=== PATIENT | male | born 1965 | race Caucasian/White ===

== ENCOUNTER 2018-04-02 11:19 | Observation (INO) | payer MEDICARE, SELFPAY ==
[2018-04-02] VITALS (11 sets, daily range): BP systolic 130–153; BP diastolic 78–85; PULSE 74–88; RESP 11–18; TEMP 36.4–36.8; O2SAT 94–100; BMI 36.4; BMI 35.2
--- NOTE | 2018-04-02 11:35 | RAD_ITS ---
STUDY: X-RAY CHEST REASON FOR EXAM: Male, 52 years old. Chest pain. TECHNIQUE: Single AP portable view of the chest. COMPARISON: 08/10/2016. FINDINGS: The lungs are clear and expanded. There is no demonstrated pleural abnormality. Normal size heart. Normal mediastinum and ortiz. Normal visualized pulmonary arteries. Normal visualized aortic arch and descending thoracic aorta. There are degenerative changes of the visualized thoracic spine. Normal visualized ribs, clavicles, and shoulders. There is no demonstrated abnormality of the visualized soft tissue structures of the upper abdomen. RAD/Chest 1 View (Portable) IMPRESSION: No active pulmonary disease. Electronically Signed: Grant Herrera MD at 12:35 EDT Tel , Service support ,
--- NOTE | 2018-04-02 11:35 | EKG12_ITS ---
Test Reason : CP Blood Pressure : / mmHG Vent. Rate : 086 BPM Atrial Rate : 086 BPM P-R Int : 178 ms QRS Dur : 094 ms QT Int : 396 ms P-R-T Axes : 030 002 059 degrees QTc Int : 473 ms Sinus rhythm with frequent Premature ventricular complexes Otherwise normal ECG Confirmed by ARIEL BROWNING, ARMANDO ([id number]), photo editor ABDIRASHID GARCIA ([id number]) on 04/04/2018 3:17:26 PM Referred By: SHERRON Confirmed By:ARMANDO GEORGE MD
--- NOTE | 2018-04-02 11:37 | ED.DCSUM_ITS ---
- ER Visit Summary Date of Service: 04/02/18 Chief Complaint: Chest pain History of Present Illness: The patient is a 52 M with chest pain that started about half an hour prior to my evaluation. It is retrosternal. Associated with lightheadedness, headache, and bilateral jaw and ear pain. Patient said he never had this before. 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 He is a former smoker. Denies any fevers, shortness of breath, or sputum. Physical Examination: Afebrile and vital signs unremarkable. Patient appears in no acute distress. Skin appears normal. Heart regular rate and rhythm. Lungs clear. Abdomen soft and nontender. Skin, calves, pulses unremarkable. Test Results: EKG showed sinus rhythm at a rate of 86 with PVCs. No sign of acute ischemia or infarction pattern. Laboratory studies and chest x-ray are pending. Emergency Department Course and Treatment: Patient was placed on a monitor and treated with aspirin. He had a stress test about 8 years ago. He has no history of coronary disease, stents, or [place]. No history of PE, DVT, or aortic disease. No infectious symptoms currently. Workup was all fairly unremarkable. White count is 14, BUN 34 and creatinine 2.14. This is all chronic for him. Troponin normal. Chest x-ray showed no acute disease. Patient was feeling better after aspirin. JAYLEEN score 1 and heart score 4. Hospitalist was contacted for admission. Treatment Plan: As above Disposition: Admission Impression: 1. Chest pain This note was generated with [employer] dictation software. It may contain incorrect words, spelling, and punctuation that were not noted in review of the chart prior to signing ED Disposition - Plan for ED Patient: Chief Complaint: Chest Pain Referrals: Elgin Bal MD [Primary Care Provider] -
[2018-04-02 11:52] LABS: Absolute Lymphocyte Count 1.06 X10^3/ul (0.83-4.51); Absolute Neutrophil Count 11.9 X10^3/uL (2.0-7.7); Basophil# 0.03 X10^3/uL; Basophil% 0.2 % (0-1); Eosinophil# 0.12 X10^3/uL; Eosinophils% 0.9 % (0-5); Hematocrit 39.5 % (40-54); Hemoglobin 13.7 g/dl (13.0-16.5); Lymphocyte # 1.06 X10^3/ul (4.0); Lymphocyte % 7.6 % (19-41); Mean Corp Hgb Conc 34.7 g/gl (32-36); Mean Corpuscular Hgb 30.9 pg (27.0-32.0); Mean Corpuscular Volume 89.2 fL (80-94); Mean Platelet Vol. 9.2 fl (6.2-12.0); Monocyte# 0.83 X10^3/uL; Monocyte% 5.9 % (0-10); Neutrophil # 11.91 X10^3/uL (2.7-7.7); Neutrophil % 85.1 % (47-70); POSITIVE COUNT NO; POSITIVE DIFFERENTIAL NO; POSITIVE MORPHOLOGY NO; Platelet Count 267 K/mm3 (150-450); RBC Distribution Width CV 12.7 % (11.6-14.6); RBC Distribution Width SD 40.9 fl (35.1-43.9); Red Blood Count 4.43 M/mm3 (4.6-6.2)
[2018-04-02] MEDS: Aspirin 81 MG TAB.CHEW 324 MG PO (12:00)
[2018-04-02 12:09] LABS: Anion Gap 6 (5-15); BUN 34 mg/dL (7-18); BUN/Creat Ratio 15.9 RATIO (10-20); Calcium,Total 8.9 mg/dL (8.5-10.1); Chloride 111 mmol/L (98-107); Creatinine, Serum 2.14 mg/dL (0.70-1.30); EST Glomerular Filtration Rate 34 mL/min (>60); Est Glom Filt Rate - Afr Amer 42 mL/min (>60); Estimated Creatinine Clearance 40.75 ml/min; Glucose 126 mg/dL (74-106); Sodium Level 140 mmol/L (136-145)
--- NOTE | 2018-04-02 13:18 | NURSING ---
DR JAMES SIU
--- NOTE | 2018-04-02 13:19 | NURSING ---
AMANDAU RJ BAKER
--- NOTE | 2018-04-02 13:32 | PCM.HP.STD ---
Problem List (1) Chest pain Status: Acute Qualifiers: Chest pain type: precordial pain Qualified Code(s): R07.2 - Precordial pain History of Present Illness Date of Admission: 04/02/18 Chief Complaint: chest pain The patient is a 52 year old M was seen in the emergency room at [facility] with chief complaint of precordial chest pain which began about a half an hour prior to coming to the emergency room this morning. Patient was in buddhist when his chest pain started, he stated it felt like an ache, it was centered in his mid chest area, radiated into his jaw area and the back of his neck and was accompanied by headache. Patient had no nausea, shortness of breath, or diaphoresis. The chest discomfort lasted until the patient came to the emergency room and was given aspirin which he states made it go away, chest pain and all lasted approximately 40 minutes to an hour. Workup in the emergency room included an EKG which showed a normal sinus rhythm with frequent PVCs, chest x-ray was unremarkable, labs were remarkable for a creatinine of 2.14, BUN was 34, glucose is 126, and white blood cell count was 14. Patient will be placed on observation status on PCU for chest pain, enzymes will be cycled, if enzymes remain negative he will undergo a exercise stress test tomorrow Past Medical History Past Medical History (Chronic Problems): Chronic Problems Schizoaffective disorder (Chronic) Rheumatoid arthritis (Chronic) Bipolar 1 disorder (Chronic) Gastroesophageal reflux disease (Chronic) Allergies lamotrigine [From Lamictal] Allergy (Verified 04/02/18 11:19) Rash Home Medications: Ambulatory Orders Medication Instructions Recorded buPROPion XL [Wellbutrin Xl] 450 mg PO QHS 05/18/15 Albuterol Inhaler [Ventolin Hfa 1 - 2 puff INHALATION Q4H PRN PRN 04/02/16 (SP)] Quetiapine Fumarate [Seroquel Xr] 400 mg PO QHS 04/09/16 Omeprazole [Prilosec] 40 mg PO DAILY 08/10/16 Amlodipine [Norvasc] 10 mg PO DAILY 04/02/18 Atorvastatin Calcium [Lipitor] 20 mg PO QHS 04/02/18 [place] Carbonate [[place] 600 mg PO BID 04/02/18 Carbonate ER] Surgical History: - - T+A, L inguinal hernia repair, R foot surgery, L shoulder surgery, Back surgery, jaw surgery, Psychiatric History: Bipolar Lives: Spouse/ Significant Other Smoking Status: Former smoker Tobacco Use: Non-smoker Alcohol: None Drugs: None - *Family History Maternal History Items: Heart Disease Paternal History Items: No pertinent history - suicide Review of Systems Constitutional: Denies: Anorexia, Chills, Fever, Night Sweats, Malaise, Weakness, Weight Change, Fatigue Eyes: Denies: Blurred vision, Cataracts, Conjunctivae Inflammation HEENT: Reports: Head Aches. Denies: Difficulty Swallowing, Dysphasia, Ear Pain, Eye Pain, Hearing Changes, Nasal bleeding, Nasal Congestion, Post Nasal Drip Cardiovascular: Reports: Chest Pain. Denies: Claudication, Chest Pressure, Chest Tightness, Edema, Heaviness, Light Headedness, Palpitations Respiratory: Denies: Cough, Hemoptysis, Pleuritic Pain, Shortness of Breath, Shortness of breath at rest, Shortness of breath upon exertion Gastrointestinal: Denies: Abdominal Pain, Constipation, Diarrhea, Hematemesis, Hematochezia, Nausea, Melena, Vomiting Genitourinary: Denies: Dysuria, Frequency, Hematuria, Hesitancy, Incontinence, Nocturia, Urgency Musculoskeletal: Reports: Neck Pain. Denies: Arm Pain, Back Pain, Foot Pain, Joint Pain, Joint stiffness, Joint swelling, Joint Tenderness Skin: Denies: Dryness, Pruritis, Rash Neurological: Denies: Balance problems, Blurred vision, Double vision, Slurred speech, Difficulty swallowing, Focal weakness, Headaches, Incoordination, Numbness, Tingling Psychiatric: Denies: Anxiety, Depression, Homicidal Ideations, Suicidal Ideations Endocrine: Denies: Change in Body Habitus, Heat/ Cold Intolerance, Polydipsia, Polyuria Hematologic/ Lymphatic: Denies: Adenopathy, Anemia, Easy Bruising, Easy Bleeding, Petechiae, Purpura VTE Information - Inpt Only VTE Present on Admission: No VTE Mechan Device Prophylaxis: None VTE Pharm Prophylaxis ordered?: Yes Patient Problems: Active and Suspected Problems Chest pain (Acute) - Physical Exam General: Alert, Oriented x3, Cooperative, No apparent distress, Well developed, Well nourished HEENT: Atraumatic, PERRLA, EOMI, Normocephalic Oral: Moist Mucosa Neck: Supple, No JVD, Negative Carotid Bruits, No Nuchal Rigidity, Trachea Midline, Thyroid Normal Size and Texture Lungs: Clear to auscultation, Normal air movement, No rhonchi, No wheeze, No rales Cardiovascular: Regular rate, Regular Rhythm, Normal S1, Normal S2, No murmurs, PMI Normal, No rub noted, No Gallop Abdomen: Bowel Sounds Present, Soft, Non Tender, Non-Distended, Obese Extremities: No clubbing, No cyanosis, No edema, Capillary Refill Less than 3 Seconds Skin: No rashes, No breakdown Musculoskeletal: No Tenderness to Palpation of Joints or Extremities, No Muscle Wasting Neurological: Cranial nerves II-XII grossly intact, Neuro grossly intact, Muscle tone normal, Sensory exam intact to light touch and pain, Coordination normal Psych/Mental Status: Normal Affect, Appropriate, Alert and oriented to time, place, person, mood and affect Vital Signs Temp Pulse Resp BP Pulse Ox 97.6 F L 80 17 153/81 H 94 04/02/18 11:20 04/02/18 12:19 04/02/18 12:19 04/02/18 12:19 04/02/18 12:19 Oxygen Delivery Method Room Air Weight: 115.212 kg Body Mass Index (BMI) 36.4 Laboratory Tests Past 24 Hrs 04/02/18 04/02/18 11:25 11:25 WBC 14.0 H RBC 4.43 L Hgb 13.7 Hct 39.5 L MCV 89.2 MCH 30.9 MCHC 34.7 RDW 12.7 RDW Differential 40.9 Plt Count 267 MPV 9.2 Immature Gran % (Auto) 0.300 Neut % (Auto) 85.1 H Lymph % (Auto) 7.6 L [place] % (Auto) 5.9 Eos % (Auto) 0.9 Baso % (Auto) 0.2 Absolute Neuts (auto) 11.9 H Absolute Lymphs (auto) 1.06 Total Counted Not Reportable Sodium 140 Potassium 4.0 Chloride 111 H Carbon Dioxide 23.0 Anion Gap 6 BUN 34 H Creatinine 2.14 H Estim Creat Clear Calc 40.75 Est GFR (MDRD) Af Amer 42 L Est GFR (MDRD) Non-Af 34 L BUN/Creatinine Ratio 15.9 Glucose 126 H Calcium 8.9 Troponin I < 0.015 Assessment/Plan Active and Suspected Problems Chest pain (Acute) #1 precordial chest pain-etiology unclear, patient will be placed in observation status on PCU, enzymes will be cycled, he will be monitored on telemetry, if enzymes remain negative he will have a exercise nuclear stress test tomorrow. Patient was given aspirin in the emergency room #2 hypertension-patient will remain on his present medication #3 bipolar disorder-patient will remain on his present medication #4 hyperlipidemia-patient will remain on his present medication #5 PVCs-these appear unifocal on his EKG #6 elevated creatinine-etiology unclear, creatinine has been elevated on previous labs from 2 years ago. #7 leukocytosis-probably secondary to lithium Code Visit OBSV E&M: 09336 Initial observation care L3
--- NOTE | 2018-04-02 13:43 | HP.PCM_ITS ---
Problem List (1) Chest pain Status: Acute Qualifiers: Chest pain type: precordial pain Qualified Code(s): R07.2 - Precordial pain History of Present Illness Date of Admission: 04/02/18 Chief Complaint: chest pain The patient is a 52 year old M was seen in the emergency room at [facility] with chief complaint of precordial chest pain which began about a half an hour prior to coming to the emergency room this morning. Patient was in islam when his chest pain started, he stated it felt like an ache, it was centered in his mid chest area, radiated into his jaw area and the back of his neck and was accompanied by headache. Patient had no nausea, shortness of breath, or diaphoresis. The chest discomfort lasted until the patient came to the emergency room and was given aspirin which he states made it go away, chest pain and all lasted approximately 40 minutes to an hour. Workup in the emergency room included an EKG which showed a normal sinus rhythm with frequent PVCs, chest x-ray was unremarkable, labs were remarkable for a creatinine of 2.14, BUN was 34, glucose is 126, and white blood cell count was 14. Patient will be placed on observation status on PCU for chest pain, enzymes will be cycled, if enzymes remain negative he will undergo a exercise stress test tomorrow Past Medical History Past Medical History (Chronic Problems): Chronic Problems Schizoaffective disorder (Chronic) Rheumatoid arthritis (Chronic) Bipolar 1 disorder (Chronic) Gastroesophageal reflux disease (Chronic) Allergies lamotrigine [From Lamictal] Allergy (Verified 04/02/18 11:19) Rash Home Medications: Ambulatory Orders Medication Instructions Recorded buPROPion XL [Wellbutrin Xl] 450 mg PO QHS 05/18/15 Albuterol Inhaler [Ventolin Hfa 1 - 2 puff INHALATION Q4H PRN PRN 04/02/16 (SP)] Quetiapine Fumarate [Seroquel Xr] 400 mg PO QHS 04/09/16 Omeprazole [Prilosec] 40 mg PO DAILY 08/10/16 Amlodipine [Norvasc] 10 mg PO DAILY 04/02/18 Atorvastatin Calcium [Lipitor] 20 mg PO QHS 04/02/18 [place] Carbonate [[place] 600 mg PO BID 04/02/18 Carbonate ER] Surgical History: - - T+A, L inguinal hernia repair, R foot surgery, L shoulder surgery, Back surgery, jaw surgery, Psychiatric History: Bipolar Lives: Spouse/ Significant Other Smoking Status: Former smoker Tobacco Use: Non-smoker Alcohol: None Drugs: None - *Family History Maternal History Items: Heart Disease Paternal History Items: No pertinent history - suicide Review of Systems Constitutional: Denies: Anorexia, Chills, Fever, Night Sweats, Malaise, Weakness , Weight Change, Fatigue Eyes: Denies: Blurred vision, Cataracts, Conjunctivae Inflammation HEENT: Reports: Head Aches. Denies: Difficulty Swallowing, Dysphasia, Ear Pain , Eye Pain, Hearing Changes, Nasal bleeding, Nasal Congestion, Post Nasal Drip Cardiovascular: Reports: Chest Pain. Denies: Claudication, Chest Pressure, Chest Tightness, Edema, Heaviness, Light Headedness, Palpitations Respiratory: Denies: Cough, Hemoptysis, Pleuritic Pain, Shortness of Breath, Shortness of breath at rest, Shortness of breath upon exertion Gastrointestinal: Denies: Abdominal Pain, Constipation, Diarrhea, Hematemesis, Hematochezia, Nausea, Melena, Vomiting Genitourinary: Denies: Dysuria, Frequency, Hematuria, Hesitancy, Incontinence, Nocturia, Urgency Musculoskeletal: Reports: Neck Pain. Denies: Arm Pain, Back Pain, Foot Pain, Joint Pain, Joint stiffness, Joint swelling, Joint Tenderness Skin: Denies: Dryness, Pruritis, Rash Neurological: Denies: Balance problems, Blurred vision, Double vision, Slurred speech, Difficulty swallowing, Focal weakness, Headaches, Incoordination, Numbness, Tingling Psychiatric: Denies: Anxiety, Depression, Homicidal Ideations, Suicidal Ideations Endocrine: Denies: Change in Body Habitus, Heat/ Cold Intolerance, Polydipsia, Polyuria Hematologic/ Lymphatic: Denies: Adenopathy, Anemia, Easy Bruising, Easy Bleeding , Petechiae, Purpura VTE Information - Inpt Only VTE Present on Admission: No VTE Mechan Device Prophylaxis: None VTE Pharm Prophylaxis ordered?: Yes Patient Problems: Active and Suspected Problems Chest pain (Acute) - Physical Exam General: Alert, Oriented x3, Cooperative, No apparent distress, Well developed, Well nourished HEENT: Atraumatic, PERRLA, EOMI, Normocephalic Oral: Moist Mucosa Neck: Supple, No JVD, Negative Carotid Bruits, No Nuchal Rigidity, Trachea Midline, Thyroid Normal Size and Texture Lungs: Clear to auscultation, Normal air movement, No rhonchi, No wheeze, No rales Cardiovascular: Regular rate, Regular Rhythm, Normal S1, Normal S2, No murmurs, PMI Normal, No rub noted, No Gallop Abdomen: Bowel Sounds Present, Soft, Non Tender, Non-Distended, Obese Extremities: No clubbing, No cyanosis, No edema, Capillary Refill Less than 3 Seconds Skin: No rashes, No breakdown Musculoskeletal: No Tenderness to Palpation of Joints or Extremities, No Muscle Wasting Neurological: Cranial nerves II-XII grossly intact, Neuro grossly intact, Muscle tone normal, Sensory exam intact to light touch and pain, Coordination normal Psych/Mental Status: Normal Affect, Appropriate, Alert and oriented to time, place, person, mood and affect Vital Signs Temp Pulse Resp BP Pulse Ox 97.6 F L 80 17 153/81 H 94 04/02/18 11:20 04/02/18 12:19 04/02/18 12:19 04/02/18 12:19 04/02/18 12:19 Oxygen Delivery Method Room Air Weight: 115.212 kg Body Mass Index (BMI) 36.4 Laboratory Tests Past 24 Hrs 04/02/18 04/02/18 11:25 11:25 WBC 14.0 H RBC 4.43 L Hgb 13.7 Hct 39.5 L MCV 89.2 MCH 30.9 MCHC 34.7 RDW 12.7 RDW Differential 40.9 Plt Count 267 MPV 9.2 Immature Gran % (Auto) 0.300 Neut % (Auto) 85.1 H Lymph % (Auto) 7.6 L [place] % (Auto) 5.9 Eos % (Auto) 0.9 Baso % (Auto) 0.2 Absolute Neuts (auto) 11.9 H Absolute Lymphs (auto) 1.06 Total Counted Not Reportable Sodium 140 Potassium 4.0 Chloride 111 H Carbon Dioxide 23.0 Anion Gap 6 BUN 34 H Creatinine 2.14 H Estim Creat Clear Calc 40.75 Est GFR (MDRD) Af Amer 42 L Est GFR (MDRD) Non-Af 34 L BUN/Creatinine Ratio 15.9 Glucose 126 H Calcium 8.9 Troponin I < 0.015 Assessment/Plan Active and Suspected Problems Chest pain (Acute) #1 precordial chest pain-etiology unclear, patient will be placed in observation status on PCU, enzymes will be cycled, he will be monitored on telemetry, if enzymes remain negative he will have a exercise nuclear stress test tomorrow. Patient was given aspirin in the emergency room #2 hypertension-patient will remain on his present medication #3 bipolar disorder-patient will remain on his present medication #4 hyperlipidemia-patient will remain on his present medication #5 PVCs-these appear unifocal on his EKG #6 elevated creatinine-etiology unclear, creatinine has been elevated on previous labs from 2 years ago. #7 leukocytosis-probably secondary to lithium Code Visit OBSV E&M: 51286 Initial observation care L3
--- NOTE | 2018-04-02 14:22 | EKG12_ITS ---
Test Reason : ADMISSION CP EKG Blood Pressure : / mmHG Vent. Rate : 072 BPM Atrial Rate : 072 BPM P-R Int : 176 ms QRS Dur : 098 ms QT Int : 410 ms P-R-T Axes : 029 003 065 degrees QTc Int : 448 ms Normal sinus rhythm Normal ECG When compared with ECG of 10-AUG-2016 14:47, No significant change was found Confirmed by ARIEL BROWNING, ARMANDO ([id number]), news copy editor ABDIRASHID GARCIA ([id number]) on 04/04/2018 3:21:50 PM Referred By: JAMES Confirmed By:ARMANDO GEORGE MD
[2018-04-02] MEDS: QUEtiapine 100 MG Tablet 200 MG PO (21:58)
[2018-04-02] MEDS: buPROPion (XL) 150 MG TABLET.XL 450 MG PO (21:58)
[2018-04-02] MEDS: LITHIUM CARBONATE 300 MG TABLET.ER 600 MG PO (21:58)
[2018-04-02] MEDS: Atorvastatin Calcium 20 MG Tablet PO (21:58)
[2018-04-02] MEDS: Heparin Injection (Vial) 5,000 UNIT/ML VIAL 5000 UNIT SC (22:03)
[2018-04-03] VITALS (7 sets, daily range): BP systolic 115–153; BP diastolic 57–87; PULSE 66–96; RESP 15–18; TEMP 36.5–37; O2SAT 95–96
[2018-04-03 04:18] LABS: Absolute Lymphocyte Count 1.69 X10^3/ul (0.83-4.51); Absolute Neutrophil Count 11.2 X10^3/uL (2.0-7.7); Basophil# 0.02 X10^3/uL; Basophil% 0.1 % (0-1); Eosinophil# 0.08 X10^3/uL; Eosinophils% 0.6 % (0-5); Hematocrit 37.5 % (40-54); Hemoglobin 12.6 g/dl (13.0-16.5); Lymphocyte # 1.69 X10^3/ul (4.0); Lymphocyte % 12.1 % (19-41); Mean Corp Hgb Conc 33.6 g/gl (32-36); Mean Corpuscular Hgb 29.9 pg (27.0-32.0); Mean Corpuscular Volume 88.9 fL (80-94); Mean Platelet Vol. 8.9 fl (6.2-12.0); Monocyte% 6.5 % (0-10); Neutrophil # 11.21 X10^3/uL (2.7-7.7); Neutrophil % 80.6 % (47-70); Platelet Count 246 K/mm3 (150-450); RBC Distribution Width CV 12.8 % (11.6-14.6); Red Blood Count 4.22 M/mm3 (4.6-6.2); White Blood Count 13.9 K/mm3 (4.4-11.0)
[2018-04-03 04:19] LABS: POSITIVE COUNT NO; POSITIVE DIFFERENTIAL NO; POSITIVE MORPHOLOGY NO
[2018-04-03 04:20] LABS: Prothrombin Time (Protime)PT. 12.9 SECONDS (11.7-14.9)
[2018-04-03 04:33] LABS: Partial Thromboplast Time 28.4 Seconds (24.1-36.2)
[2018-04-03 04:42] LABS: Anion Gap 10 (5-15); BUN 32 mg/dL (7-18); BUN/Creat Ratio 16.8 RATIO (10-20); Calcium,Total 8.7 mg/dL (8.5-10.1); Chloride 111 mmol/L (98-107); EST Glomerular Filtration Rate 39 mL/min (>60); Est Glom Filt Rate - Afr Amer 48 mL/min (>60); Estimated Creatinine Clearance 45.89 ml/min; Glucose 131 mg/dL (74-106); Potassium 3.5 mmol/L (3.5-5.1); Sodium Level 145 mmol/L (136-145)
--- NOTE | 2018-04-03 05:55 | EKG12_ITS ---
Test Reason : AM EKG Blood Pressure : / mmHG Vent. Rate : 083 BPM Atrial Rate : 083 BPM P-R Int : 172 ms QRS Dur : 100 ms QT Int : 386 ms P-R-T Axes : 035 000 068 degrees QTc Int : 453 ms Sinus rhythm with frequent Premature ventricular complexes Nonspecific T wave abnormality Abnormal ECG When compared with ECG of 02-APR-2018 14:29, MANUAL COMPARISON REQUIRED, DATA IS UNCONFIRMED Confirmed by ARIEL BROWNING, ARMANDO ([id number]), newspaper editor ABDIRASHID GARCIA ([id number]) on 04/04/2018 3:19:06 PM Referred By: KELLEY Confirmed By:ARMANDO GEORGE MD
--- NOTE | 2018-04-03 09:43 | STRESSREP ---
Stress Test Report Exercise myocardial perfusion stress test. 52-year-old man with a history of chest pain. Medications Lipitor Wellbutrin and lithium. Resting EKG demonstrates normal sinus rhythm with a rate of 80 bpm normal intervals and noted resting blood pressure is 138/78 mmHg. The patient exercised according to regular Marko protocol for total duration of 6 minutes completing stage II of the Marko protocol the maximum heart rate attained was 144 bpm which was 86% maximum predicted heart rate the maximum workload attained was 7 metabolic equivalents. At rest there were no ST or T-wave changes noted suggest ischemia. Frequent premature ventricular complexes were noted premature atrial complexes were also noted. The resting blood pressure is 154/84 with a peak blood pressure 180/64. No clinical angina was noted. Myocardial perfusion protocol. 14.0 mCi of technetium 99m sestamibi was injected at rest. The patient exercised according to regular Marko protocol for 6 minutes and at peak exercise 45.0 mCi of technetium 99m sestamibi was injected stress images were obtained stress and rest images were reconstructed and compared in the short axis vertical long and horizontal long axis. Gated images were also obtained pre- Perfusion SPECT analysis: Review of the stress images demonstrate normal uptake of tracer noted in all areas of the myocardium. The resting images similarly demonstrate normal uptake of tracer noted in all areas myocardium. There is a small portion of the apex on the stress and resting images which appears to have mildly reduced perfusion the above is likely secondary to apical thinning. No previous infarct is noted. Gated SPECT analysis: The gated ejection fraction is 51%. Conclusion: Normal exercise myocardial perfusion stress test at a moderate workload. Preserved ejection fraction. No clinical angina noted.
--- NOTE | 2018-04-03 10:59 | DCINST_ITS ---
- Discharge Diagnoses Current Active Problems: Current Active and Chronic Problems Chronic kidney disease (Chronic) Chest pain (Acute) You will use the following diet at home:: No restrictions Your food should be the consistency of: Regular Your liquids should be the consistency of: Regular/Thin Discharge Activity: Return to Normal Activity Weight Bearing Status: Full weight bearing Allergies/Adverse Reactions: Allergies lamotrigine [From Lamictal] Allergy (Verified 04/02/18 11:19) Rash Medications to take at Discharge buPROPion XL [Wellbutrin Xl] 450 mg PO QHS 05/18/15 Albuterol Inhaler [Ventolin Hfa] 1 - 2 puff INHALATION Q4H PRN PRN 04/02/16 Quetiapine Fumarate [Seroquel Xr] 400 mg PO QHS 04/09/16 Omeprazole [Prilosec] 40 mg PO DAILY 08/10/16 Amlodipine [Norvasc] 10 mg PO DAILY 04/02/18 Atorvastatin Calcium [Lipitor] 20 mg PO QHS 04/02/18 Cholecalciferol (Vitamin D3) [Vitamin D3] 2,000 unit PO DAILY 04/02/18 [place] Carbonate [[place] Carbonate ER] 600 mg PO BID 04/02/18 Primary Care Physician: Elgin Bal MD [Primary Care Provider] - Please follow up with your Primary Care Physician in: IN 3 WEEKS
--- NOTE | 2018-04-04 19:04 | PCM.DC.SUM ---
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 Patient stated the chest pain was precordial in nature and radiated into the jaw area back of his neck. Workup in the emergency room included an EKG which showed unifocal PVCs but no evidence of ischemia, chest x-ray was unremarkable, patient's labs showed an elevated white blood cell count and elevated creatinine. Patient had a known history of chronic renal disease secondary to Rey's vasculitis. Patient's troponin was unremarkable. Patient was placed into observation status on PCU and cardiac enzymes were cycled-these remained normal, he underwent an exercise nuclear stress test on 04/03/18 was negative for reversible ischemic changes. On 04/03/18, patient was seen and examined felt to be in stable condition for discharge home Discharge Activity: Return to Normal Activity Weight Bearing Status: Full weight bearing Home Medications: Medications to take at Discharge buPROPion XL [Wellbutrin Xl] 450 mg PO QHS 05/18/15 Albuterol Inhaler [Ventolin Hfa] 1 - 2 puff INHALATION Q4H PRN PRN 04/02/16 Quetiapine Fumarate [Seroquel Xr] 400 mg PO QHS 04/09/16 Omeprazole [Prilosec] 40 mg PO DAILY 08/10/16 Amlodipine [Norvasc] 10 mg PO DAILY 04/02/18 Atorvastatin Calcium [Lipitor] 20 mg PO QHS 04/02/18 Cholecalciferol (Vitamin D3) [Vitamin D3] 2,000 unit PO DAILY 04/02/18 [place] Carbonate [[place] Carbonate ER] 600 mg PO BID 04/02/18 Primary Care Physician: Elgin Bal MD [Primary Care Provider] - Please follow up with your Primary Care Physician in: IN 3 WEEKS Disposition: Home Minutes spent on discharge:: 25 Patient Condition:: Stable Medical Necessity - Tobacco Use Smoking Status: Former smoker Tobacco Use: Non-smoker Meaningful Use Info Meaningful Use Diagnoses (Choose all that apply): None applicable Code Visit OBSV E&M: 15185 Observation care discharge
--- NOTE | 2018-04-04 19:09 | DS.PCM_ITS ---
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 Patient stated the chest pain was precordial in nature and radiated into the jaw area back of his neck. Workup in the emergency room included an EKG which showed unifocal PVCs but no evidence of ischemia, chest x-ray was unremarkable, patient's labs showed an elevated white blood cell count and elevated creatinine. Patient had a known history of chronic renal disease secondary to Rey's vasculitis. Patient's troponin was unremarkable. Patient was placed into observation status on PCU and cardiac enzymes were cycled-these remained normal, he underwent an exercise nuclear stress test on 04/03/18 was negative for reversible ischemic changes. On 04/03/18, patient was seen and examined felt to be in stable condition for discharge home Discharge Activity: Return to Normal Activity Weight Bearing Status: Full weight bearing Home Medications: Medications to take at Discharge buPROPion XL [Wellbutrin Xl] 450 mg PO QHS 05/18/15 Albuterol Inhaler [Ventolin Hfa] 1 - 2 puff INHALATION Q4H PRN PRN 04/02/16 Quetiapine Fumarate [Seroquel Xr] 400 mg PO QHS 04/09/16 Omeprazole [Prilosec] 40 mg PO DAILY 08/10/16 Amlodipine [Norvasc] 10 mg PO DAILY 04/02/18 Atorvastatin Calcium [Lipitor] 20 mg PO QHS 04/02/18 Cholecalciferol (Vitamin D3) [Vitamin D3] 2,000 unit PO DAILY 04/02/18 Annetta North Carbonate [Annetta North Carbonate ER] 600 mg PO BID 04/02/18 Primary Care Physician: Elgin Bal MD [Primary Care Provider] - Please follow up with your Primary Care Physician in: IN 3 WEEKS Disposition: Home Minutes spent on discharge:: 25 Patient Condition:: Stable Medical Necessity - Tobacco Use Smoking Status: Former smoker Tobacco Use: Non-smoker Meaningful Use Info Meaningful Use Diagnoses (Choose all that apply): None applicable Code Visit OBSV E&M: 10555 Observation care discharge
== END 2018-04-03 10:59 | disposition home or self-care (01) ==
LOC: ED 12:28 → PCU 13:35
PROVIDERS: Internal Medicine; Admitting Provider Internal Medicine; Emergency Provider Emergency Medicine; Family Provider Family Medicine; PCP Family Medicine; Visit Provider Internal Medicine
DX: R07.89 Other chest pain (principal); E78.5 Hyperlipidemia, unspecified; I12.9 Hypertensive chronic kidney disease with stage 1 through stage 4 chronic kidney disease, or unspecified chronic kidney disease; N18.3 Chronic kidney disease, stage 3 (moderate); D72.829 Elevated white blood cell count, unspecified; I49.3 Ventricular premature depolarization; F31.9 Bipolar disorder, unspecified; I77.89 Other specified disorders of arteries and arterioles; F25.9 Schizoaffective disorder, unspecified; K21.9 Gastro-esophageal reflux disease without esophagitis; M06.9 Rheumatoid arthritis, unspecified; Z79.899 Other long term (current) drug therapy; Z87.891 Personal history of nicotine dependence
CPT/HCPCS: 36415; 71045; 78452; 80048; 84484; 85025; 85610; 85730; 93005; 93017; 96372; 99218; 99284; A9500; A4216; G0378

== ENCOUNTER 2019-03-02 12:26 | Emergency (ER) | payer MEDICARE, SELFPAY ==
[2019-03-02 12:27] VITALS: BP 107/77; PULSE 106; RESP 20; TEMP 36.8; BMI 34.4
--- NOTE | 2019-03-02 12:40 | CM.ED ---
SOCIAL WORK UPDATED BY DR. CRUZ, PATIENT REQUIRING CRISIS EVALUATION. MARZENA WITH CRISIS IN ED AND UPDATED ON NEED FOR EVALUATION. MARZENA STATES IS HEADING TO MED SURG AND REQUESTS TO BE NOTIFIED ONCE PATIENT IS MEDICALLY CLEARED. NURSE UPDATED. EUNICE SALAZAR, CHERRY PICKER OPERATOR, DATA MANAGEMENT SPECIALIST.
--- NOTE | 2019-03-02 13:05 | ED.RN ---
CALLED CRISIS MARZENA IS IN MED SURG, I WILL LET HER KNOW @[phone]
[2019-03-02 13:21] LABS: Absolute Lymphocyte Count 0.59 X10^3/ul (0.83-4.51); Absolute Neutrophil Count 4.5 X10^3/uL (2.0-7.7); Basophil# 0.03 X10^3/uL; Basophil% 0.5 % (0-1); Eosinophil# 0.03 X10^3/uL; Eosinophils% 0.5 % (0-5); Hematocrit 37.5 % (40-54); Hemoglobin 12.8 g/dl (13.0-16.5); Lymphocyte # 0.59 X10^3/ul (4.0); Lymphocyte % 10.6 % (19-41); Mean Corp Hgb Conc 34.1 g/gl (32-36); Mean Corpuscular Hgb 30.3 pg (27.0-32.0); Mean Corpuscular Volume 88.7 fL (80-94); Mean Platelet Vol. 8.6 fl (6.2-12.0); Monocyte# 0.42 X10^3/uL; Monocyte% 7.6 % (0-10); Neutrophil # 4.47 X10^3/uL (2.7-7.7); Neutrophil % 80.6 % (47-70); Platelet Count 183 K/mm3 (150-450); RBC Distribution Width CV 12.2 % (11.6-14.6); RBC Distribution Width SD 39.3 fl (35.1-43.9); Red Blood Count 4.23 M/mm3 (4.6-6.2); White Blood Count 5.6 K/mm3 (4.4-11.0)
[2019-03-02 13:23] LABS: Differential Indicated SCAN CRITERIA MET; POSITIVE COUNT NO; POSITIVE DIFFERENTIAL YES; POSITIVE MORPHOLOGY NO
[2019-03-02 13:31] LABS: Anion Gap 6 (5-15); BUN 27 mg/dL (7-18); Chloride 112 mmol/L (98-107); Creatinine, Serum 2.08 mg/dL (0.70-1.30); EST Glomerular Filtration Rate 35 mL/min (>60); Est Glom Filt Rate - Afr Amer 43 mL/min (>60); Estimated Creatinine Clearance 41.43 ml/min; Glucose 121 mg/dL (74-106); Potassium 4.1 mmol/L (3.5-5.1); Sodium Level 141 mmol/L (136-145)
[2019-03-02 13:47] LABS: Alcohol, Blood (Medical)-Serum < 3.0 mg/dL
[2019-03-02 13:59] LABS: Amphetamine Urine VISTA NEGATIVE (<1000 ng/mL); Barbiturate Urine VISTA NEGATIVE (< 200 ng/mL); Benzodiazepine Urine VISTA NEGATIVE (< 200 ng/mL); Cocaine Urine VISTA NEGATIVE (< 300 ng/mL); Ecstacy Urine VISTA POSITIVE (< 500 ng/mL); Methadone Urine VISTA NEGATIVE (< 300 ng/mL); PCP Urine VISTA NEGATIVE (< 25 ng/mL); THC Urine VISTA NEGATIVE (< 50 ng/mL); Vista UDS pH Range 6
[2019-03-02 14:21] LABS: Platelet Estimate ADEQUATE (ADEQ); Red Cell Morphology NORM C+C NORMAL (NORM C&C)
--- NOTE | 2019-03-02 15:10 | ED.VIS.GEN ---
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 He presents because of visual and auditory hallucinations. He is seen individuals with guns and soldiers who have machine guns. He is hearing male voices telling patient they are going to shoot him. He has no suicidal or homicidal thoughts. states the counseling center sent him to the hospital for evaluation and inpatient therapy since he has failed adjustment of his meds over the past month. - Past Medical History (1) Bipolar 1 disorder Status: Chronic (2) Chronic kidney disease Status: Chronic (3) Gastroesophageal reflux disease Status: Chronic (4) Rheumatoid arthritis Status: Chronic (5) Schizoaffective disorder Status: Chronic (6) Rey's vasculitis Status: Chronic Past Medical History - Allergies and Home Meds Allergies/Adverse Reactions: Allergies lamotrigine [From Lamictal] Allergy (Verified 03/02/19 13:12) Rash Primary Care Physician: Elgin Bal MD [Primary Care Provider] - Prior records reviewed: Yes Surgical History: - - T+A, L inguinal hernia repair, R foot surgery, L shoulder surgery, Back surgery, jaw surgery, Lives: Spouse/ Significant Other, With Family Smoking Status: Never smoker Alcohol: None Drugs: None - Family History Maternal Family History: Reports: Heart Disease Paternal Family History: Reports: No pertinent history - suicide Review of Systems General: Denies: Chills, Fever, Sweats, Weight loss Eyes: Denies: Visual changes - bilaterally, Blurred Vision - bilaterally - 1., Diplopia ENT: Denies: Rhinorrhea, Sore throat Cardiovascular: Denies: Chest pain, Palpitations Respiratory: Denies: Dyspnea, Cough, Dyspnea on exertion Gastrointestinal: Denies: Abdominal pain, Nausea, Vomiting, Diarrhea, Melena, Hematochezia Genitourinary: Denies: Dysuria, Hematuria, Frequency Musculoskeletal: Denies: Myalgias, Arthralgias, Neck pain, Back pain, Extremity Pain Skin: Denies: Rash, Wounds Neurological: Denies: Headache, Weakness, Numbness Psych: Reports: Anxiety, - - Visual and auditory hallucinations. He also has paranoid ideation.. Denies: Depression, Suicidal thoughts, Suicidal ideations Endocrine: Denies: Heat intolerance, Cold intolerance Hematologic: Denies: Easy bruising, Easy bleeding Physical Exam Vital Signs/Narrative: Vital Signs Temp Pulse Resp BP 03/02/19 12:27 98.3 F 106 H 20 H 107/77 Inital Vital Signs reviewed: Yes General: Well nourished, Well developed, No Acute Distress Head: Normocephalic, Atraumatic Eyes: Perrl, EOMI ENT: Moist mucous membranes, No rhinorrhea Neck: Supple, Nontender Cardiovascular: Regular rate, Regular rhythm, No murmurs Respiratory: No distress, CTA bilaterally, Chest nontender Abdomen: Soft, Nontender, Nondistended, Normal bowel sounds Back: Nontender, Normal Inspection Extremities: Nontender, No edema Skin: Normal color, No rash Neurological: Alert, Oriented x3, Cranial nerves II-XII grossly intact, Normal Strength, Normal Sensation Psychological: Normal affect, Normal Mood, - - Affect is restricted. He denies suicidal homicidal ideation. He is not well-groomed. He does not have his dentures in place. There is no evidence of recent harm to self. Diagnostic/Tx/Re-eval Laboratory Results 03/02/19 03/02/19 03/02/19 13:08 13:08 13:08 WBC 5.6 RBC 4.23 L Hgb 12.8 L Hct 37.5 L MCV 88.7 MCH 30.3 MCHC 34.1 RDW 12.2 RDW Differential 39.3 Plt Count 183 MPV 8.6 Immature Gran % (Auto) 0.200 Neut % (Auto) 80.6 H Lymph % (Auto) 10.6 L Baldwin % (Auto) 7.6 Eos % (Auto) 0.5 Baso % (Auto) 0.5 Absolute Neuts (auto) 4.5 Absolute Lymphs (auto) 0.59 L Total Counted Not Reportable Platelet Estimate ADEQUATE RBC Morphology NORM C+C Sodium 141 Potassium 4.1 Chloride 112 H Carbon Dioxide 23.0 Anion Gap 6 BUN 27 H Creatinine 2.08 H Estim Creat Clear Calc 41.43 Est GFR (MDRD) Af Amer 43 L Est GFR (MDRD) Non-Af 35 L BUN/Creatinine Ratio 13.0 Glucose 121 H Calcium 9.0 Urine Opiates Screen Urine Methadone Screen Ur Barbiturates Screen Ur Phencyclidine Scrn Ur Amphetamines Screen U Methamphetamin-MDMA U Benzodiazepines Scrn Urine Cocaine Screen U Cannabinoids Screen Ur Drug Screen Comment Ethyl Alcohol < 3.0 03/02/19 13:40 WBC RBC Hgb Hct MCV MCH MCHC RDW RDW Differential Plt Count MPV Immature Gran % (Auto) Neut % (Auto) Lymph % (Auto) Baldwin % (Auto) Eos % (Auto) Baso % (Auto) Absolute Neuts (auto) Absolute Lymphs (auto) Total Counted Platelet Estimate RBC Morphology Sodium Potassium Chloride Carbon Dioxide Anion Gap BUN Creatinine Estim Creat Clear Calc Est GFR (MDRD) Af Amer Est GFR (MDRD) Non-Af BUN/Creatinine Ratio Glucose Calcium Urine Opiates Screen NEGATIVE Urine Methadone Screen NEGATIVE Ur Barbiturates Screen NEGATIVE Ur Phencyclidine Scrn NEGATIVE Ur Amphetamines Screen NEGATIVE U Methamphetamin-MDMA POSITIVE H U Benzodiazepines Scrn NEGATIVE Urine Cocaine Screen NEGATIVE U Cannabinoids Screen NEGATIVE Ur Drug Screen Comment Ethyl Alcohol Wellbutrin is known to potentially cause false positive methamphetamine test. Since patient is taking Wellbutrin and denies illicit drug use suspect this is a false positive test secondary to Wellbutrin. - Medical Decision Making Based on 's concern is specifically since they have a 10 and 17-year-old at home screening labs were obtained for medical clearance. The mental health license social media marketing manager for the counseling center was notified. 's specific concern is his behavior and possible harm to the 10 or 17-year-old. In light of his medical problems baseline blood work was obtained to rule out any other issues i.e. metabolic or infectious that may be the cause of his visual hallucinations. This would not be the cause of his auditory or paranoid ideation. has documentation that he had a CAT scan within the past 12 months and reason this was not repeated since he has a normal nonfocal neurologic exam. ED Disposition - Plan for ED Patient: Disposition: Acute Care Hospital - Other Diagnosis: Schizophrenia, paranoid, chronic, Visual hallucinations Referrals: Elgin Bal MD [Primary Care Provider] -
[2019-03-02 15:51] VITALS: BP 118/75; PULSE 80; RESP 18; O2SAT 97
[2019-03-02 18:15] VITALS: BP 124/82; PULSE 78; RESP 19; O2SAT 98
--- NOTE | 2019-03-02 18:24 | EKG12_ITS ---
Test Reason : MHC PLACEMENT Blood Pressure : / mmHG Vent. Rate : 074 BPM Atrial Rate : 074 BPM P-R Int : 188 ms QRS Dur : 106 ms QT Int : 394 ms P-R-T Axes : 028 -11 087 degrees QTc Int : 437 ms Normal sinus rhythm T wave abnormality, consider lateral ischemia Abnormal ECG Confirmed by MADAN BROWNING, SHAD ([id number]), loan expeditor ABDIRASHID GARCIA ([id number]) on 03/06/2019 1:55:47 PM Referred By: AMANDA Confirmed By:SHAD HAGER MD
--- NOTE | 2019-03-02 19:05 | CM.ED ---
SOCIAL WORK UPDATED BY ADOLFO FLOOR SERVICE WORKER SPRING- PATIENT ACCEPTED [facility] TRANSPORT TO ARRIVE IN THE NEXT HOUR. EUNICE SALAZAR, MATERIAL LIAISON, GARDEN CONSULTANT. J
[2019-03-02 19:23] LABS: Bacteria 0 SEEN /hpf (None Seen); Mucous, Urine 0 SEEN /hpf (<or=2+); Squamous Epithelial Cells - UA 0 SEEN /hpf (0-5); White Blood Cells 0 SEEN /hpf (0-5)
--- NOTE | 2019-03-02 19:24 | ED.RN ---
THIS RN CALLED REPORT TO AMANDO GONSALEZ RN AT [phone].
[2019-03-02 19:45] LABS: Color, Urine Yellow (Yellow); Glucose, Dipstick Normal (Normal); Ketone-Dipstick Negative (Negative); Leukocyte Esterase-Dipstick Negative /ul (Negative); Nitrite-Dipstick Negative (Negative); Occult Blood-Urine 25 /ul (Negative); Protein-Dipstick Negative (Negative); Specific Gravity, Urine 1.005 (1.002-1.030); Urine Bilirubin Dipstick Negative (Negative); Urine Clarity Sl. Cloudy (Clear); Urine Urobilinogen Normal (Normal)
[2019-03-02 20:14] VITALS: BP 149/77; PULSE 73; RESP 16; O2SAT 96
[2019-03-02 20:16] LABS: Red Blood Cells-Urine 0-5 SEEN /hpf (0-5)
[2019-03-02 20:24] VITALS: BP 149/77; PULSE 73; RESP 16; O2SAT 96
== END 2019-03-02 20:26 | disposition short-term general hospital (02) ==
PROVIDERS: Emergency Medicine; Emergency Provider Emergency Medicine; Family Provider Family Medicine; PCP Family Medicine
DX: F20.0 Paranoid schizophrenia (principal); I77.6 Arteritis, unspecified; M06.9 Rheumatoid arthritis, unspecified; K21.9 Gastro-esophageal reflux disease without esophagitis; F31.9 Bipolar disorder, unspecified
CPT/HCPCS: 80048; 80307; 80320; 81001; 85025; 93005; 99285; G0480

== ENCOUNTER → 2020-02-14 09:34 | Outpatient (CLI) | payer MEDICARE, MEDICAID, SELFPAY ==
[2020-02-14 08:00] VITALS: BP 152/64; PULSE 62; RESP 18; TEMP 36.1; O2SAT 94; BMI 40.6
[2020-02-14] MEDS: DiphenhydrAMINE 25 MG Capsule 50 MG PO (08:30)
[2020-02-14] MEDS: 0.9% NaCl IVPB Med Flush (250 mL) 15 ML IV (08:30)
[2020-02-14] MEDS: Acetaminophen 500 MG Tablet 1000 MG PO (08:30)
[2020-02-14] MEDS: 0.9% NaCl Peripheral Flush Adult/Peds IV (08:35)
[2020-02-14] MEDS: MethylPREDNISolone 125 MG/2 ML Vial IV (08:40)
== END ==
PROVIDERS: PCP Family Medicine
DX: M31.31 Wegener's granulomatosis with renal involvement (principal)
CPT/HCPCS: 96413; 96415; J7040; J7050; J9312; A4216

== ENCOUNTER → 2021-07-17 05:50 | Outpatient (REF) | payer MEDICARE, MEDICAID, SELFPAY ==
[2021-07-17 07:55] LABS: Bacteria 0 SEEN /hpf (None Seen); Mucous, Urine 0 SEEN /hpf (<or=2+); Red Blood Cells-Urine 0 SEEN /hpf (0-5); White Blood Cells 0 SEEN /hpf (0-5)
[2021-07-17 08:17] LABS: Absolute Lymphocyte Count 1.61 X10^3/uL (0.83-4.51); Absolute Neutrophil Count 4.7 X10^3/uL (2.0-7.7); Basophil% 1.3 % (0-1); Eosinophil# 0.26 X10^3/uL; Eosinophils% 3.4 % (0-5); Hematocrit 40.9 % (40-54); Hemoglobin 13.6 g/dL (13.0-16.5); Lymphocyte # 1.61 X10^3/ul (0.83-4.51); Mean Corp Hgb Conc 33.3 g/dL (32-36); Mean Corpuscular Hgb 29.8 pg (27.0-32.0); Mean Corpuscular Volume 89.7 fL (80-94); Mean Platelet Vol. 8.9 fl (6.2-12.0); Monocyte# 0.93 X10^3/uL; Monocyte% 12.1 % (0-10); NRBC Flagged by Analyzer 0 % (0-5); Neutrophil # 4.72 X10^3/uL (2.7-7.7); Neutrophil % 61.4 % (47-70); Platelet Count 251 K/mm3 (150-450); RBC Distribution Width CV 12.7 % (11.6-14.6); RBC Distribution Width SD 41.5 fl (35.1-43.9); Red Blood Count 4.56 M/mm3 (4.6-6.2); White Blood Count 7.7 K/mm3 (4.4-11.0)
[2021-07-17 08:23] LABS: Albumin, Serum 3.1 g/dL (3.2-5.0); BUN 24 mg/dL (7-18); BUN/Creat Ratio 12.8 RATIO (10-20); Chloride 107 mmol/L (98-107); Creatinine, Serum 1.87 mg/dL (0.70-1.30); EST Glomerular Filtration Rate 40 mL/min (>60); Est Glom Filt Rate - Afr Amer 48 mL/min (>60); Glucose 149 mg/dL (74-106); Phosphorus 4.1 mg/dL (2.5-4.9); Potassium 3.8 mmol/L (3.5-5.1); Sodium Level 139 mmol/L (136-145)
[2021-07-17 09:04] LABS: Color, Urine Straw (Yellow); Glucose, Dipstick Normal (Normal); Ketone-Dipstick Negative (Negative); Leukocyte Esterase-Dipstick Negative /ul (Negative); Nitrite-Dipstick Negative (Negative); Occult Blood-Urine Negative /ul (Negative); Protein-Dipstick Negative (Negative); Specific Gravity, Urine 1.005 (1.002-1.030); Urine Bilirubin Dipstick Negative (Negative); Urine Clarity Clear (Clear); Urine Urobilinogen Normal (Normal)
[2021-07-17 09:12] LABS: Protein, Urine (Random) 7.6 mg/dL (<11.9); Protein:Creat Ratio 339 mg/g CRE (0-200)
[2021-07-17 09:15] LABS: Squamous Epithelial Cells - UA 0-5 SEEN /hpf (0-5)
== END ==
LOC: OLS.SANC 05:50
PROVIDERS: PCP Family Medicine; Visit Provider Family Medicine
DX: E78.5 Hyperlipidemia, unspecified (principal); F20.9 Schizophrenia, unspecified; N18.30 Chronic kidney disease, stage 3 unspecified; M31.31 Wegener's granulomatosis with renal involvement; Z79.899 Other long term (current) drug therapy
CPT/HCPCS: 36415; 80069; 81001; 82570; 84156; 85025; 87086; 87088

== ENCOUNTER → 2021-07-27 05:17 | Outpatient (REF) | payer MEDICARE, MEDICAID, SELFPAY ==
[2021-07-27 09:11] LABS: Cholesterol 142 mg/dL (200); High Density Lipoprotein 34 mg/dL; Triglycerides 201 mg/dL; Very Low Density Lipoprotein 40 mg/dL (5-40)
== END ==
LOC: OLS.SANC 05:17
PROVIDERS: PCP Family Medicine; Visit Provider Family Medicine
DX: F20.9 Schizophrenia, unspecified (principal); R63.5 Abnormal weight gain; N18.9 Chronic kidney disease, unspecified
CPT/HCPCS: 36415; 80061

== ENCOUNTER → 2021-09-10 05:00 | Outpatient (REF) | payer MEDICARE, MEDICAID, SELFPAY ==
[2021-09-10 08:40] LABS: Hematocrit 39.5 % (40-54); Mean Corp Hgb Conc 32.9 g/dL (32-36); Mean Corpuscular Hgb 29.3 pg (27.0-32.0); Mean Platelet Vol. 9.1 fl (6.2-12.0); Platelet Count 220 K/mm3 (150-450); RBC Distribution Width CV 13.1 % (11.6-14.6); RBC Distribution Width SD 42.8 fl (35.1-43.9); Red Blood Count 4.44 M/mm3 (4.6-6.2); White Blood Count 8.4 K/mm3 (4.4-11.0)
[2021-09-10 08:54] LABS: Anion Gap 6 (5-15); BUN 20 mg/dL (7-18); Calcium,Total 8.8 mg/dL (8.5-10.1); Chloride 108 mmol/L (98-107); Creatinine, Serum 2.01 mg/dL (0.70-1.30); EST Glomerular Filtration Rate 36 mL/min (>60); Est Glom Filt Rate - Afr Amer 44 mL/min (>60); Glucose 123 mg/dL (74-106); Potassium 4.3 mmol/L (3.5-5.1); Sodium Level 139 mmol/L (136-145)
== END ==
LOC: OLS.SANC 05:00
PROVIDERS: PCP Family Medicine; Visit Provider Family Medicine
DX: E11.9 Type 2 diabetes mellitus without complications (principal); I10 Essential (primary) hypertension; E78.5 Hyperlipidemia, unspecified
CPT/HCPCS: 36415; 80048; 85027

== ENCOUNTER → 2021-10-09 05:00 | Outpatient (REF) | payer MEDICARE, MEDICAID, SELFPAY ==
[2021-10-09 08:45] LABS: Bacteria 0 SEEN /hpf (None Seen); Mucous, Urine 0 SEEN /hpf (<or=2+); Red Blood Cells-Urine 0 SEEN /hpf (0-5)
[2021-10-09 09:11] LABS: Absolute Lymphocyte Count 2.37 X10^3/uL (0.83-4.51); Absolute Neutrophil Count 5.1 X10^3/uL (2.0-7.7); Basophil# 0.06 X10^3/uL; Basophil% 0.7 % (0-1); Eosinophil# 0.22 X10^3/uL; Eosinophils% 2.5 % (0-5); Hemoglobin 13.4 g/dL (13.0-16.5); Lymphocyte # 2.37 X10^3/ul (0.83-4.51); Lymphocyte % 27.1 % (19-41); Mean Corp Hgb Conc 33.5 g/dL (32-36); Mean Corpuscular Hgb 29.6 pg (27.0-32.0); Mean Corpuscular Volume 88.3 fL (80-94); Mean Platelet Vol. 8.9 fl (6.2-12.0); Monocyte# 0.92 X10^3/uL; Monocyte% 10.5 % (0-10); NRBC Flagged by Analyzer 0 % (0-5); Neutrophil # 5.13 X10^3/uL (2.7-7.7); Neutrophil % 58.5 % (47-70); Platelet Count 215 K/mm3 (150-450); RBC Distribution Width CV 13.2 % (11.6-14.6); RBC Distribution Width SD 43.5 fl (35.1-43.9); Red Blood Count 4.53 M/mm3 (4.6-6.2); White Blood Count 8.8 K/mm3 (4.4-11.0)
[2021-10-09 09:13] LABS: Color, Urine Yellow (Yellow); Glucose, Dipstick Normal (Normal); Ketone-Dipstick Negative (Negative); Leukocyte Esterase-Dipstick 25 /ul (Negative); Nitrite-Dipstick Negative (Negative); Occult Blood-Urine Negative /ul (Negative); Protein-Dipstick Negative (Negative); Specific Gravity, Urine 1.015 (1.002-1.030); Urine Bilirubin Dipstick Negative (Negative); Urine Clarity Clear (Clear); Urine Urobilinogen Normal (Normal)
[2021-10-09 09:23] LABS: Squamous Epithelial Cells - UA 0-5 SEEN /hpf (0-5); White Blood Cells 0-5 SEEN /hpf (0-5)
[2021-10-09 09:29] LABS: Albumin, Serum 2.8 g/dL (3.2-5.0); BUN 25 mg/dL (7-18); Chloride 107 mmol/L (98-107); Creatinine, Serum 2.09 mg/dL (0.70-1.30); EST Glomerular Filtration Rate 35 mL/min (>60); Est Glom Filt Rate - Afr Amer 42 mL/min (>60); Glucose 116 mg/dL (74-106); Phosphorus 3.7 mg/dL (2.5-4.9); Potassium 3.7 mmol/L (3.5-5.1); Sodium Level 140 mmol/L (136-145)
[2021-10-09 09:31] LABS: Protein, Urine (Random) 15.8 mg/dL (<11.9); Protein:Creat Ratio 117 mg/g CRE (0-200)
== END ==
LOC: OLS.SANC 05:00
PROVIDERS: PCP Family Medicine; Visit Provider Family Medicine
DX: E78.5 Hyperlipidemia, unspecified (principal); I12.9 Hypertensive chronic kidney disease with stage 1 through stage 4 chronic kidney disease, or unspecified chronic kidney disease; E03.9 Hypothyroidism, unspecified; M62.81 Muscle weakness (generalized); N18.30 Chronic kidney disease, stage 3 unspecified; Z79.899 Other long term (current) drug therapy
CPT/HCPCS: 36415; 80069; 81001; 82570; 84156; 85025; 87086

== ENCOUNTER → 2021-10-19 05:00 | Outpatient (REF) | payer MEDICARE, MEDICAID, SELFPAY | LOC: OLS.SANC 05:00 | PROVIDERS: PCP Family Medicine; Visit Provider Family Medicine | DX: I10 Essential (primary) hypertension (principal); F25.0 Schizoaffective disorder, bipolar type; Z79.899 Other long term (current) drug therapy | CPT/HCPCS: 36415; 80178 ==

== ENCOUNTER → 2021-11-05 04:00 | Outpatient (REF) | payer MEDICARE, MEDICAID, SELFPAY ==
[2021-11-05 08:10] LABS: Bacteria 0 SEEN /hpf (None Seen); Mucous, Urine 0 SEEN /hpf (<or=2+); Red Blood Cells-Urine 0 SEEN /hpf (0-5)
[2021-11-05 08:27] LABS: Color, Urine Yellow (Yellow); Glucose, Dipstick Normal (Normal); Ketone-Dipstick Negative (Negative); Leukocyte Esterase-Dipstick 100 /ul (Negative); Nitrite-Dipstick Negative (Negative); Occult Blood-Urine Negative /ul (Negative); Protein-Dipstick 15 mg/dl (Negative); Urine Bilirubin Dipstick Negative (Negative); Urine Clarity Sl. Cloudy (Clear); Urine Urobilinogen Normal (Normal)
[2021-11-05 08:32] LABS: Absolute Lymphocyte Count 2.12 X10^3/uL (0.83-4.51); Absolute Neutrophil Count 5.7 X10^3/uL (2.0-7.7); Basophil# 0.08 X10^3/uL; Basophil% 0.9 % (0-1); Eosinophil# 0.26 X10^3/uL; Eosinophils% 2.8 % (0-5); Hematocrit 40.9 % (40-54); Hemoglobin 13.4 g/dL (13.0-16.5); Lymphocyte # 2.12 X10^3/ul (0.83-4.51); Lymphocyte % 22.9 % (19-41); Mean Corp Hgb Conc 32.8 g/dL (32-36); Mean Corpuscular Hgb 29.3 pg (27.0-32.0); Mean Corpuscular Volume 89.5 fL (80-94); Mean Platelet Vol. 9.1 fl (6.2-12.0); Monocyte# 1.01 X10^3/uL; Monocyte% 10.9 % (0-10); NRBC Flagged by Analyzer 0 % (0-5); Neutrophil # 5.73 X10^3/uL (2.7-7.7); Neutrophil % 61.9 % (47-70); Platelet Count 218 K/mm3 (150-450); RBC Distribution Width CV 13.3 % (11.6-14.6); RBC Distribution Width SD 43.5 fl (35.1-43.9); Red Blood Count 4.57 M/mm3 (4.6-6.2); White Blood Count 9.3 K/mm3 (4.4-11.0)
[2021-11-05 08:34] LABS: White Blood Cells 10-25 SEEN /hpf (0-5)
[2021-11-05 08:35] LABS: Squamous Epithelial Cells - UA 0-5 SEEN /hpf (0-5)
[2021-11-05 08:39] LABS: Protein:Creat Ratio 124 mg/g CRE (0-200)
[2021-11-05 08:40] LABS: Albumin, Serum 2.7 g/dL (3.2-5.0); Anion Gap 5 (5-15); BUN 22 mg/dL (7-18); BUN/Creat Ratio 11.6 RATIO (10-20); Calcium,Total 8.7 mg/dL (8.5-10.1); Chloride 110 mmol/L (98-107); EST Glomerular Filtration Rate 39 mL/min (>60); Est Glom Filt Rate - Afr Amer 47 mL/min (>60); Glucose 132 mg/dL (74-106); Sodium Level 143 mmol/L (136-145)
== END ==
LOC: OLS.SANC 04:00
PROVIDERS: PCP Family Medicine; Referring Provider Family Medicine; Visit Provider Family Medicine
DX: E78.5 Hyperlipidemia, unspecified (principal); N18.30 Chronic kidney disease, stage 3 unspecified
CPT/HCPCS: 36415; 80048; 81001; 82040; 82570; 84156; 85025; 87077; 87086; 87088; 87186

== ENCOUNTER → 2021-11-09 05:00 | Outpatient (REF) | payer MEDICARE, MEDICAID, SELFPAY | LOC: OLS.SANC 05:00 | PROVIDERS: PCP Family Medicine; Visit Provider Family Medicine | DX: F25.0 Schizoaffective disorder, bipolar type (principal); Z79.899 Other long term (current) drug therapy | CPT/HCPCS: 36415; 80178 ==

== ENCOUNTER → 2021-12-03 10:34 | Outpatient (REF) | payer MEDICAID, MEDICARE, SELFPAY ==
[2021-12-03 09:16] LABS: Absolute Lymphocyte Count 2.02 X10^3/uL (0.83-4.51); Absolute Neutrophil Count 4.3 X10^3/uL (2.0-7.7); Basophil# 0.08 X10^3/uL; Basophil% 1.1 % (0-1); Eosinophil# 0.22 X10^3/uL; Eosinophils% 2.9 % (0-5); Hematocrit 41.8 % (40-54); Hemoglobin 13.7 g/dL (13.0-16.5); Lymphocyte # 2.02 X10^3/ul (0.83-4.51); Lymphocyte % 27.1 % (19-41); Mean Corp Hgb Conc 32.8 g/dL (32-36); Mean Corpuscular Hgb 29.1 pg (27.0-32.0); Mean Corpuscular Volume 88.9 fL (80-94); Mean Platelet Vol. 9.1 fl (6.2-12.0); Monocyte# 0.82 X10^3/uL; NRBC Flagged by Analyzer 0 % (0-5); Neutrophil # 4.27 X10^3/uL (2.7-7.7); Neutrophil % 57.2 % (47-70); Platelet Count 230 K/mm3 (150-450); RBC Distribution Width CV 13.2 % (11.6-14.6); RBC Distribution Width SD 43.4 fl (35.1-43.9); White Blood Count 7.5 K/mm3 (4.4-11.0)
[2021-12-03 09:36] LABS: Anion Gap 5 (5-15); BUN 20 mg/dL (7-18); BUN/Creat Ratio 9.7 RATIO (10-20); Calcium,Total 8.9 mg/dL (8.5-10.1); Chloride 108 mmol/L (98-107); Creatinine, Serum 2.07 mg/dL (0.70-1.30); EST Glomerular Filtration Rate 35 mL/min (>60); Est Glom Filt Rate - Afr Amer 43 mL/min (>60); Glucose 118 mg/dL (74-106); Potassium 3.9 mmol/L (3.5-5.1); Sodium Level 140 mmol/L (136-145)
[2021-12-04 08:43] LABS: Color, Urine Yellow (Yellow); Glucose, Dipstick Normal (Normal); Ketone-Dipstick Negative (Negative); Leukocyte Esterase-Dipstick Negative /ul (Negative); Nitrite-Dipstick Negative (Negative); Occult Blood-Urine Negative /ul (Negative); Protein-Dipstick Negative (Negative); Urine Bilirubin Dipstick Negative (Negative); Urine Clarity Clear (Clear); Urine Urobilinogen Normal (Normal)
== END ==
LOC: OLS.SANC 10:34
PROVIDERS: PCP Family Medicine; Visit Provider Family Medicine
DX: I10 Essential (primary) hypertension (principal); E11.9 Type 2 diabetes mellitus without complications
CPT/HCPCS: 36415; 80048; 80178; 81002; 85025; 87086

== ENCOUNTER 2021-12-07 05:00 | Outpatient (REF) | payer MEDICARE, MEDICAID, SELFPAY | END 2021-12-07 23:59 | disposition home or self-care (01) | LOC: OLS.SANC 05:00 | PROVIDERS: PCP Family Medicine; Visit Provider Family Medicine | DX: E11.9 Type 2 diabetes mellitus without complications (principal); I10 Essential (primary) hypertension; Z79.899 Other long term (current) drug therapy | CPT/HCPCS: 36415; 80178 ==

== ENCOUNTER → 2022-01-04 | Outpatient (REF) | payer MEDICARE, MEDICAID, SELFPAY ==
[2022-01-04 09:16] LABS: Cholesterol 140 mg/dL (200); High Density Lipoprotein 34 mg/dL; Triglycerides 247 mg/dL; Very Low Density Lipoprotein 49 mg/dL (5-40)
== END | disposition home or self-care (01) ==
LOC: OLS.SANC 05:00
PROVIDERS: PCP Family Medicine; Visit Provider Family Medicine
DX: I12.9 Hypertensive chronic kidney disease with stage 1 through stage 4 chronic kidney disease, or unspecified chronic kidney disease (principal); N18.9 Chronic kidney disease, unspecified
CPT/HCPCS: 36415; 80061; 80178

== ENCOUNTER 2022-01-25 04:00 | Outpatient (REF) | payer MEDICARE, MEDICAID, SELFPAY | END 2022-01-25 23:59 | disposition home or self-care (01) | LOC: OLS.SANC 04:00 | PROVIDERS: PCP Family Medicine; Referring Provider Family Medicine; Visit Provider Family Medicine | DX: F25.0 Schizoaffective disorder, bipolar type (principal) | CPT/HCPCS: 36415; 80178 ==

== ENCOUNTER → 2022-01-28 | Outpatient (REF) | payer MEDICARE, MEDICAID, SELFPAY ==
[2022-01-28 08:04] LABS: Bacteria 0 SEEN /hpf (None Seen); Mucous, Urine 0 SEEN /hpf (<or=2+); Red Blood Cells-Urine 0 SEEN /hpf (0-5); White Blood Cells 0 SEEN /hpf (0-5)
[2022-01-28 08:36] LABS: Color, Urine Yellow (Yellow); Glucose, Dipstick Normal (Normal); Ketone-Dipstick Negative (Negative); Leukocyte Esterase-Dipstick Negative /ul (Negative); Nitrite-Dipstick Negative (Negative); Occult Blood-Urine Negative /ul (Negative); Protein-Dipstick Negative (Negative); Urine Bilirubin Dipstick Negative (Negative); Urine Clarity Sl. Cloudy (Clear); Urine Urobilinogen Normal (Normal)
[2022-01-28 08:44] LABS: Squamous Epithelial Cells - UA 0-5 SEEN /hpf (0-5)
[2022-01-28 08:55] LABS: Microalbumin,Random Urine 28.5 mg/L (NO RANGE EST.)
[2022-01-28 09:23] LABS: Basophil# 0.06 X10^3/uL; Basophil% 0.5 % (0-1); Eosinophil# 0.05 X10^3/uL; Eosinophils% 0.4 % (0-5); Hematocrit 38.6 % (40-54); Hemoglobin 12.6 g/dL (13.0-16.5); Lymphocyte % 16.8 % (19-41); Mean Corp Hgb Conc 32.6 g/dL (32-36); Mean Corpuscular Hgb 29.8 pg (27.0-32.0); Mean Corpuscular Volume 91.3 fL (80-94); Mean Platelet Vol. 9.3 fl (6.2-12.0); Monocyte# 1.13 X10^3/uL; NRBC Flagged by Analyzer 0 % (0-5); Neutrophil # 7.98 X10^3/uL (2.7-7.7); Neutrophil % 70.6 % (47-70); Platelet Count 240 K/mm3 (150-450); RBC Distribution Width CV 13.7 % (11.6-14.6); RBC Distribution Width SD 45.7 fl (35.1-43.9); Red Blood Count 4.23 M/mm3 (4.6-6.2); White Blood Count 11.3 K/mm3 (4.4-11.0)
[2022-01-28 09:56] LABS: Albumin, Serum 3.2 g/dL (3.2-5.0); BUN 24 mg/dL (7-18); BUN/Creat Ratio 14.7 RATIO (10-20); Calcium,Total 8.4 mg/dL (8.5-10.1); Chloride 110 mmol/L (98-107); Creatinine, Serum 1.63 mg/dL (0.70-1.30); EST Glomerular Filtration Rate 46 mL/min (>60); Est Glom Filt Rate - Afr Amer 56 mL/min (>60); Glucose 129 mg/dL (74-106); Phosphorus 2.7 mg/dL (2.5-4.9); Potassium 3.8 mmol/L (3.5-5.1); Sodium Level 141 mmol/L (136-145)
== END | disposition home or self-care (01) ==
LOC: OLS.SANC 04:00
PROVIDERS: PCP Family Medicine; Visit Provider Internal Medicine
DX: E78.5 Hyperlipidemia, unspecified (principal); E11.22 Type 2 diabetes mellitus with diabetic chronic kidney disease; N18.30 Chronic kidney disease, stage 3 unspecified; N39.0 Urinary tract infection, site not specified; Z79.899 Other long term (current) drug therapy
CPT/HCPCS: 36415; 80069; 81001; 82043; 82570; 85025

== ENCOUNTER → 2022-02-18 | Outpatient (REF) | payer MEDICARE, MEDICAID, SELFPAY ==
[2022-02-18 08:50] LABS: Erythrocyte Sedimentation Rate 12 mm/hr (0-20)
[2022-02-18 09:05] LABS: Anion Gap 5 (5-15); BUN 22 mg/dL (7-18); BUN/Creat Ratio 11.8 RATIO (10-20); Calcium,Total 8.7 mg/dL (8.5-10.1); Chloride 110 mmol/L (98-107); Creatinine, Serum 1.86 mg/dL (0.70-1.30); EST Glomerular Filtration Rate 40 mL/min (>60); Est Glom Filt Rate - Afr Amer 48 mL/min (>60); Glucose 125 mg/dL (74-106); Potassium 4.1 mmol/L (3.5-5.1); Sodium Level 139 mmol/L (136-145); Uric Acid 7.2 mg/dL (3.5-7.2)
== END | disposition home or self-care (01) ==
LOC: OLS.SANC 04:00
PROVIDERS: PCP Family Medicine; Referring Provider Internal Medicine; Visit Provider Internal Medicine
DX: I12.9 Hypertensive chronic kidney disease with stage 1 through stage 4 chronic kidney disease, or unspecified chronic kidney disease (principal); E11.22 Type 2 diabetes mellitus with diabetic chronic kidney disease; N18.9 Chronic kidney disease, unspecified; E78.5 Hyperlipidemia, unspecified
CPT/HCPCS: 36415; 80048; 84550; 85652

== ENCOUNTER → 2022-02-25 | Outpatient (REF) | payer MEDICARE, MEDICAID, SELFPAY ==
[2022-02-25 09:27] LABS: Bacteria 0 SEEN /hpf (None Seen); Mucous, Urine 0 SEEN /hpf (<or=2+); Red Blood Cells-Urine 0 SEEN /hpf (0-5); Squamous Epithelial Cells - UA 0 SEEN /hpf (0-5); White Blood Cells 0 SEEN /hpf (0-5)
[2022-02-25 09:50] LABS: Absolute Lymphocyte Count 2.27 X10^3/uL (0.83-4.51); Absolute Neutrophil Count 7.8 X10^3/uL (2.0-7.7); Basophil# 0.04 X10^3/uL; Basophil% 0.3 % (0-1); Eosinophil# 0.02 X10^3/uL; Eosinophils% 0.2 % (0-5); Hematocrit 36.9 % (40-54); Lymphocyte # 2.27 X10^3/ul (0.83-4.51); Lymphocyte % 19.7 % (19-41); Mean Corp Hgb Conc 32.5 g/dL (32-36); Mean Corpuscular Hgb 29.3 pg (27.0-32.0); Mean Corpuscular Volume 90.2 fL (80-94); Mean Platelet Vol. 9.9 fl (6.2-12.0); Monocyte# 1.04 X10^3/uL; NRBC Flagged by Analyzer 0 % (0-5); Neutrophil # 7.84 X10^3/uL (2.7-7.7); Neutrophil % 67.9 % (47-70); POSITIVE COUNT YES; RBC Distribution Width CV 14.1 % (11.6-14.6); RBC Distribution Width SD 46.8 fl (35.1-43.9); Red Blood Count 4.09 M/mm3 (4.6-6.2); White Blood Count 11.6 K/mm3 (4.4-11.0)
[2022-02-25 09:53] LABS: Color, Urine Yellow (Yellow); Glucose, Dipstick Normal (Normal); Ketone-Dipstick Negative (Negative); Leukocyte Esterase-Dipstick 25 /ul (Negative); Nitrite-Dipstick Negative (Negative); Occult Blood-Urine Negative /ul (Negative); Protein-Dipstick Negative (Negative); Urine Bilirubin Dipstick Negative (Negative); Urine Clarity Clear (Clear); Urine Urobilinogen Normal (Normal)
[2022-02-25 09:59] LABS: Protein, Urine (Random) 13.8 mg/dL (<11.9); Protein:Creat Ratio 167 mg/g CRE (0-200)
[2022-02-25 10:05] LABS: Albumin, Serum 3.2 g/dL (3.2-5.0); BUN 38 mg/dL (7-18); BUN/Creat Ratio 18.6 RATIO (10-20); Calcium,Total 8.4 mg/dL (8.5-10.1); Chloride 102 mmol/L (98-107); Creatinine, Serum 2.04 mg/dL (0.70-1.30); EST Glomerular Filtration Rate 36 mL/min (>60); Est Glom Filt Rate - Afr Amer 43 mL/min (>60); Glucose 107 mg/dL (74-106); Phosphorus 4.3 mg/dL (2.5-4.9); Potassium 4.1 mmol/L (3.5-5.1); Sodium Level 137 mmol/L (136-145); Uric Acid 7.8 mg/dL (3.5-7.2)
[2022-02-25 10:28] LABS: Differential Indicated SCAN CRITERIA MET
[2022-02-25 10:32] LABS: Platelet Estimate ADEQUATE (ADEQ)
== END | disposition home or self-care (01) ==
LOC: OLS.SANC 05:00
PROVIDERS: PCP Family Medicine; Visit Provider Internal Medicine
DX: I10 Essential (primary) hypertension (principal); E11.9 Type 2 diabetes mellitus without complications; E78.5 Hyperlipidemia, unspecified
CPT/HCPCS: 36415; 80069; 80178; 81001; 82570; 84156; 84550; 85025; 87086

== ENCOUNTER → 2022-03-19 | Outpatient (REF) | payer MEDICARE, MEDICAID, SELFPAY ==
[2022-03-19 09:41] LABS: Uric Acid 8.3 mg/dL (3.5-7.2)
== END | disposition home or self-care (01) ==
LOC: OLS.SANC 05:00
PROVIDERS: PCP Family Medicine; Visit Provider Family Medicine
DX: Z00.00 Encounter for general adult medical examination without abnormal findings (principal)
CPT/HCPCS: 36415; 84550

== ENCOUNTER → 2022-03-25 | Outpatient (REF) | payer MEDICARE, MEDICAID, SELFPAY ==
[2022-03-25 08:46] LABS: Bacteria 0 SEEN /hpf (None Seen); Mucous, Urine 0 SEEN /hpf (<or=2+); Red Blood Cells-Urine 0 SEEN /hpf (0-5)
[2022-03-25 09:11] LABS: Color, Urine Yellow (Yellow); Glucose, Dipstick Normal (Normal); Ketone-Dipstick Negative (Negative); Leukocyte Esterase-Dipstick 25 /ul (Negative); Nitrite-Dipstick Negative (Negative); Occult Blood-Urine Negative /ul (Negative); Protein-Dipstick Negative (Negative); Specific Gravity, Urine 1.015 (1.002-1.030); Urine Bilirubin Dipstick Negative (Negative); Urine Clarity Sl. Cloudy (Clear); Urine Urobilinogen Normal (Normal)
[2022-03-25 09:12] LABS: Absolute Neutrophil Count 5.6 X10^3/uL (2.0-7.7); Basophil# 0.06 X10^3/uL; Basophil% 0.6 % (0-1); Eosinophil# 0.17 X10^3/uL; Eosinophils% 1.7 % (0-5); Hematocrit 43.6 % (40-54); Hemoglobin 14.1 g/dL (13.0-16.5); Lymphocyte % 28.7 % (19-41); Mean Corp Hgb Conc 32.3 g/dL (32-36); Mean Corpuscular Hgb 29.6 pg (27.0-32.0); Mean Corpuscular Volume 91.4 fL (80-94); Mean Platelet Vol. 9.3 fl (6.2-12.0); Monocyte% 9.2 % (0-10); NRBC Flagged by Analyzer 0 % (0-5); Neutrophil # 5.55 X10^3/uL (2.7-7.7); Neutrophil % 56.9 % (47-70); Platelet Count 276 K/mm3 (150-450); RBC Distribution Width CV 13.6 % (11.6-14.6); RBC Distribution Width SD 45.9 fl (35.1-43.9); Red Blood Count 4.77 M/mm3 (4.6-6.2); White Blood Count 9.8 K/mm3 (4.4-11.0)
[2022-03-25 09:21] LABS: Squamous Epithelial Cells - UA 0-5 SEEN /hpf (0-5); White Blood Cells 0-5 SEEN /hpf (0-5)
[2022-03-25 09:25] LABS: Protein, Urine (Random) 15.8 mg/dL (<11.9); Protein:Creat Ratio 175 mg/g CRE (0-200)
[2022-03-25 09:33] LABS: Albumin, Serum 2.9 g/dL (3.2-5.0); BUN 27 mg/dL (7-18); BUN/Creat Ratio 15.4 RATIO (10-20); Calcium,Total 8.7 mg/dL (8.5-10.1); Chloride 106 mmol/L (98-107); Creatinine, Serum 1.75 mg/dL (0.70-1.30); EST Glomerular Filtration Rate 43 mL/min (>60); Est Glom Filt Rate - Afr Amer 52 mL/min (>60); Glucose 164 mg/dL (74-106); Potassium 3.8 mmol/L (3.5-5.1); Sodium Level 139 mmol/L (136-145)
== END | disposition home or self-care (01) ==
LOC: OLS.SANC 05:00
PROVIDERS: PCP Family Medicine; Referring Provider Family Medicine; Visit Provider Family Medicine
DX: E11.9 Type 2 diabetes mellitus without complications (principal); I10 Essential (primary) hypertension; E78.5 Hyperlipidemia, unspecified
CPT/HCPCS: 36415; 80069; 81001; 82570; 84156; 85025

== ENCOUNTER → 2022-04-02 | Outpatient (REF) | payer MEDICARE, MEDICAID, SELFPAY ==
[2022-04-02 09:00] LABS: Absolute Lymphocyte Count 1.96 X10^3/uL (0.83-4.51); Absolute Neutrophil Count 7.3 X10^3/uL (2.0-7.7); Basophil# 0.07 X10^3/uL; Basophil% 0.6 % (0-1); Eosinophil# 0.07 X10^3/uL; Eosinophils% 0.6 % (0-5); Hematocrit 44.1 % (40-54); Hemoglobin 14.4 g/dL (13.0-16.5); Lymphocyte # 1.96 X10^3/ul (0.83-4.51); Lymphocyte % 17.3 % (19-41); Mean Corp Hgb Conc 32.7 g/dL (32-36); Mean Corpuscular Hgb 29.9 pg (27.0-32.0); Mean Corpuscular Volume 91.7 fL (80-94); Monocyte# 1.78 X10^3/uL; Monocyte% 15.7 % (0-10); NRBC Flagged by Analyzer 0 % (0-5); Neutrophil % 64.6 % (47-70); POSITIVE DIFFERENTIAL YES; Platelet Count 160 K/mm3 (150-450); RBC Distribution Width SD 47.8 fl (35.1-43.9); Red Blood Count 4.81 M/mm3 (4.6-6.2); White Blood Count 11.3 K/mm3 (4.4-11.0)
[2022-04-02 09:03] LABS: Differential Indicated SCAN CRITERIA MET
[2022-04-02 09:16] LABS: Anion Gap 9 (5-15); BUN 25 mg/dL (7-18); BUN/Creat Ratio 14.1 RATIO (10-20); Chloride 103 mmol/L (98-107); Creatinine, Serum 1.77 mg/dL (0.70-1.30); EST Glomerular Filtration Rate 42 mL/min (>60); Est Glom Filt Rate - Afr Amer 51 mL/min (>60); Glucose 133 mg/dL (74-106); Potassium 3.5 mmol/L (3.5-5.1); Sodium Level 138 mmol/L (136-145)
[2022-04-06 09:14] LABS: Pathologist Review Reviewed
== END | disposition home or self-care (01) ==
LOC: OLS.SANC 05:00
PROVIDERS: PCP Family Medicine; Visit Provider Internal Medicine
DX: U07.1 COVID-19 (principal); I10 Essential (primary) hypertension
CPT/HCPCS: 36415; 80048; 85025

== ENCOUNTER 2022-04-05 05:00 | Outpatient (REF) | payer SELFPAY | END 2022-04-05 23:59 | disposition home or self-care (01) | LOC: OLS.SANC 05:00 | PROVIDERS: PCP Family Medicine; Visit Provider Family Medicine | DX: Z00.00 Encounter for general adult medical examination without abnormal findings (principal) ==

== ENCOUNTER → 2022-04-06 | Outpatient (REF) | payer MEDICARE, MEDICAID, SELFPAY | END | disposition home or self-care (01) | LOC: OLS.SANC 05:00 | PROVIDERS: PCP Family Medicine; Visit Provider Internal Medicine | DX: U07.1 COVID-19 (principal) | CPT/HCPCS: 87635; U0003; U0005 ==

== ENCOUNTER → 2022-04-21 | Outpatient (REF) | payer MEDICARE, MEDICAID, SELFPAY ==
[2022-04-21 09:57] LABS: Absolute Lymphocyte Count 2.19 X10^3/uL (0.83-4.51); Absolute Neutrophil Count 5.3 X10^3/uL (2.0-7.7); Basophil# 0.05 X10^3/uL; Basophil% 0.6 % (0-1); Eosinophil# 0.21 X10^3/uL; Eosinophils% 2.4 % (0-5); Hematocrit 39.5 % (40-54); Hemoglobin 12.9 g/dL (13.0-16.5); Lymphocyte # 2.19 X10^3/ul (0.83-4.51); Lymphocyte % 24.9 % (19-41); Mean Corp Hgb Conc 32.7 g/dL (32-36); Mean Corpuscular Hgb 30.1 pg (27.0-32.0); Mean Corpuscular Volume 92.1 fL (80-94); Mean Platelet Vol. 9.5 fl (6.2-12.0); Monocyte% 11.4 % (0-10); NRBC Flagged by Analyzer 0 % (0-5); Neutrophil # 5.32 X10^3/uL (2.7-7.7); Neutrophil % 60.5 % (47-70); Platelet Count 199 K/mm3 (150-450); RBC Distribution Width CV 13.5 % (11.6-14.6); RBC Distribution Width SD 45.9 fl (35.1-43.9); Red Blood Count 4.29 M/mm3 (4.6-6.2); White Blood Count 8.8 K/mm3 (4.4-11.0)
[2022-04-21 10:25] LABS: Uric Acid 6.2 mg/dL (3.5-7.2)
== END | disposition home or self-care (01) ==
LOC: OLS.SANC 04:00
PROVIDERS: PCP Family Medicine; Visit Provider Family Medicine
DX: I10 Essential (primary) hypertension (principal); M10.9 Gout, unspecified
CPT/HCPCS: 36415; 84550; 85025

== ENCOUNTER → 2022-04-22 | Outpatient (REF) | payer MEDICARE, MEDICAID, SELFPAY ==
[2022-04-22 08:06] LABS: Bacteria 0 SEEN /hpf (None Seen); Mucous, Urine 0 SEEN /hpf (<or=2+)
[2022-04-22 08:25] LABS: Color, Urine Yellow (Yellow); Glucose, Dipstick Normal (Normal); Ketone-Dipstick Negative (Negative); Leukocyte Esterase-Dipstick 500 /ul (Negative); Nitrite-Dipstick Negative (Negative); Occult Blood-Urine 10 /ul (Negative); Protein-Dipstick 15 mg/dl (Negative); Specific Gravity, Urine 1.015 (1.002-1.030); Urine Bilirubin Dipstick Negative (Negative); Urine Clarity Clear (Clear); Urine Urobilinogen Normal (Normal)
[2022-04-22 08:34] LABS: Albumin, Serum 2.6 g/dL (3.2-5.0); BUN 14 mg/dL (7-18); BUN/Creat Ratio 8.2 RATIO (10-20); Calcium,Total 9.1 mg/dL (8.5-10.1); Chloride 107 mmol/L (98-107); Creatinine, Serum 1.71 mg/dL (0.70-1.30); EST Glomerular Filtration Rate 44 mL/min (>60); Est Glom Filt Rate - Afr Amer 53 mL/min (>60); Glucose 129 mg/dL (74-106); Phosphorus 4.2 mg/dL (2.5-4.9); Potassium 3.8 mmol/L (3.5-5.1); Sodium Level 140 mmol/L (136-145)
[2022-04-22 08:34] LABS: Protein, Urine (Random) 30.4 mg/dL (<11.9); Protein:Creat Ratio 178 mg/g CRE (0-200)
[2022-04-22 08:52] LABS: Red Blood Cells-Urine 0-5 SEEN /hpf (0-5); Squamous Epithelial Cells - UA 0-5 SEEN /hpf (0-5); White Blood Cells 25-50 SEEN /hpf (0-5)
== END | disposition home or self-care (01) ==
LOC: OLS.SANC 05:00
PROVIDERS: PCP Family Medicine; Visit Provider Family Medicine
DX: N18.30 Chronic kidney disease, stage 3 unspecified (principal); M31.31 Wegener's granulomatosis with renal involvement; M31.7 Microscopic polyangiitis; Z79.899 Other long term (current) drug therapy
CPT/HCPCS: 80069; 81001; 82570; 84156; 87086; 87088

== ENCOUNTER → 2022-04-27 | Outpatient (REF) | payer MEDICARE, MEDICAID, SELFPAY ==
[2022-04-27 08:07] LABS: Absolute Lymphocyte Count 2.36 X10^3/uL (0.83-4.51); Absolute Neutrophil Count 10.5 X10^3/uL (2.0-7.7); Basophil# 0.05 X10^3/uL; Basophil% 0.3 % (0-1); Eosinophil# 0.02 X10^3/uL; Eosinophils% 0.1 % (0-5); Hematocrit 41.5 % (40-54); Hemoglobin 13.4 g/dL (13.0-16.5); Lymphocyte # 2.36 X10^3/ul (0.83-4.51); Lymphocyte % 16.3 % (19-41); Mean Corp Hgb Conc 32.3 g/dL (32-36); Mean Corpuscular Hgb 29.4 pg (27.0-32.0); Mean Platelet Vol. 9.2 fl (6.2-12.0); Monocyte% 7.6 % (0-10); NRBC Flagged by Analyzer 0.1 % (0-5); Neutrophil # 10.45 X10^3/uL (2.7-7.7); Platelet Count 243 K/mm3 (150-450); RBC Distribution Width CV 13.7 % (11.6-14.6); RBC Distribution Width SD 45.7 fl (35.1-43.9); Red Blood Count 4.56 M/mm3 (4.6-6.2); White Blood Count 14.5 K/mm3 (4.4-11.0)
[2022-04-27 08:23] LABS: Albumin, Serum 2.9 g/dL (3.2-5.0); BUN 27 mg/dL (7-18); BUN/Creat Ratio 13.4 RATIO (10-20); Calcium,Total 9.3 mg/dL (8.5-10.1); Chloride 104 mmol/L (98-107); Creatinine, Serum 2.02 mg/dL (0.70-1.30); EST Glomerular Filtration Rate 36 mL/min (>60); Est Glom Filt Rate - Afr Amer 44 mL/min (>60); Glucose 190 mg/dL (74-106); Phosphorus 4.6 mg/dL (2.5-4.9); Potassium 3.8 mmol/L (3.5-5.1); Sodium Level 140 mmol/L (136-145); Uric Acid 6.5 mg/dL (3.5-7.2)
[2022-04-28 09:06] LABS: Protein, Urine (Random) 10.2 mg/dL (<11.9); Protein:Creat Ratio 146 mg/g CRE (0-200)
== END | disposition home or self-care (01) ==
LOC: OLS.SANC 04:45
PROVIDERS: PCP Family Medicine; Referring Provider Family Medicine; Visit Provider Family Medicine
DX: I10 Essential (primary) hypertension (principal); F25.9 Schizoaffective disorder, unspecified; E11.9 Type 2 diabetes mellitus without complications; E78.5 Hyperlipidemia, unspecified
CPT/HCPCS: 36415; 80069; 80178; 82570; 84156; 84550; 85025

== ENCOUNTER → 2022-05-20 | Outpatient (REF) | payer MEDICARE, MEDICAID, SELFPAY ==
[2022-05-20 08:14] LABS: Bacteria 0 SEEN /hpf (None Seen); Mucous, Urine 0 SEEN /hpf (<or=2+); Red Blood Cells-Urine 0 SEEN /hpf (0-5)
[2022-05-20 08:32] LABS: Absolute Lymphocyte Count 2.07 X10^3/uL (0.83-4.51); Absolute Neutrophil Count 6.4 X10^3/uL (2.0-7.7); Basophil# 0.07 X10^3/uL; Basophil% 0.7 % (0-1); Eosinophil# 0.24 X10^3/uL; Eosinophils% 2.5 % (0-5); Hematocrit 39.9 % (40-54); Hemoglobin 12.9 g/dL (13.0-16.5); Lymphocyte # 2.07 X10^3/ul (0.83-4.51); Lymphocyte % 21.4 % (19-41); Mean Corp Hgb Conc 32.3 g/dL (32-36); Mean Corpuscular Hgb 29.6 pg (27.0-32.0); Mean Corpuscular Volume 91.5 fL (80-94); Mean Platelet Vol. 9.6 fl (6.2-12.0); Monocyte% 9.3 % (0-10); NRBC Flagged by Analyzer 0 % (0-5); Neutrophil # 6.35 X10^3/uL (2.7-7.7); Neutrophil % 65.6 % (47-70); Platelet Count 197 K/mm3 (150-450); RBC Distribution Width CV 13.6 % (11.6-14.6); RBC Distribution Width SD 45.7 fl (35.1-43.9); Red Blood Count 4.36 M/mm3 (4.6-6.2); White Blood Count 9.7 K/mm3 (4.4-11.0)
[2022-05-20 08:44] LABS: Color, Urine Yellow (Yellow); Glucose, Dipstick Normal (Normal); Ketone-Dipstick Negative (Negative); Leukocyte Esterase-Dipstick 25 /ul (Negative); Nitrite-Dipstick Negative (Negative); Occult Blood-Urine Negative /ul (Negative); Protein-Dipstick Negative (Negative); Urine Bilirubin Dipstick Negative (Negative); Urine Clarity Clear (Clear); Urine Urobilinogen Normal (Normal); Urine pH 6.5 (5.0 - 8.0)
[2022-05-20 08:57] LABS: Albumin, Serum 2.7 g/dL (3.2-5.0); BUN 17 mg/dL (7-18); BUN/Creat Ratio 9.9 RATIO (10-20); Chloride 108 mmol/L (98-107); Creatinine, Serum 1.71 mg/dL (0.70-1.30); EST Glomerular Filtration Rate 44 mL/min (>60); Est Glom Filt Rate - Afr Amer 53 mL/min (>60); Glucose 149 mg/dL (74-106); Phosphorus 3.2 mg/dL (2.5-4.9); Potassium 3.9 mmol/L (3.5-5.1); Sodium Level 140 mmol/L (136-145)
[2022-05-20 09:00] LABS: Squamous Epithelial Cells - UA 0-5 SEEN /hpf (0-5); White Blood Cells 0-5 SEEN /hpf (0-5)
[2022-05-20 09:03] LABS: Protein, Urine (Random) 17.3 mg/dL (<11.9); Protein:Creat Ratio 162 mg/g CRE (0-200)
== END | disposition home or self-care (01) ==
LOC: OLS.SANC 05:00
PROVIDERS: PCP Family Medicine; Visit Provider Family Medicine
DX: I10 Essential (primary) hypertension (principal); M06.9 Rheumatoid arthritis, unspecified; N39.0 Urinary tract infection, site not specified
CPT/HCPCS: 36415; 80069; 81001; 82570; 84156; 85025; 87086; 87088

== ENCOUNTER → 2022-05-27 | Outpatient (REF) | payer MEDICARE, MEDICAID, SELFPAY ==
[2022-05-27 11:55] LABS: Uric Acid 6.1 mg/dL (3.5-7.2)
== END | disposition home or self-care (01) ==
LOC: OLS.SANC 05:00
PROVIDERS: PCP Family Medicine; Visit Provider Internal Medicine
DX: I10 Essential (primary) hypertension (principal); E11.9 Type 2 diabetes mellitus without complications; E78.5 Hyperlipidemia, unspecified
CPT/HCPCS: 36415; 80178; 84550

== ENCOUNTER → 2022-06-17 | Outpatient (REF) | payer MEDICARE, MEDICAID, SELFPAY ==
[2022-06-17 08:48] LABS: Bacteria 0 SEEN /hpf (None Seen); Mucous, Urine 0 SEEN /hpf (<or=2+); Red Blood Cells-Urine 0 SEEN /hpf (0-5)
[2022-06-17 09:05] LABS: Color, Urine Yellow (Yellow); Glucose, Dipstick Normal (Normal); Ketone-Dipstick Negative (Negative); Leukocyte Esterase-Dipstick 100 /ul (Negative); Nitrite-Dipstick Negative (Negative); Occult Blood-Urine Negative /ul (Negative); Protein-Dipstick 15 mg/dl (Negative); Specific Gravity, Urine 1.015 (1.002-1.030); Urine Bilirubin Dipstick Negative (Negative); Urine Clarity Clear (Clear); Urine Urobilinogen Normal (Normal)
[2022-06-17 09:16] LABS: Absolute Lymphocyte Count 2.02 X10^3/uL (0.83-4.51); Absolute Neutrophil Count 5.3 X10^3/uL (2.0-7.7); Basophil# 0.07 X10^3/uL; Basophil% 0.8 % (0-1); Eosinophil# 0.25 X10^3/uL; Eosinophils% 2.9 % (0-5); Hematocrit 40.7 % (40-54); Hemoglobin 13.4 g/dL (13.0-16.5); Lymphocyte # 2.02 X10^3/ul (0.83-4.51); Lymphocyte % 23.5 % (19-41); Mean Corp Hgb Conc 32.9 g/dL (32-36); Mean Corpuscular Volume 91.3 fL (80-94); Mean Platelet Vol. 9.6 fl (6.2-12.0); Monocyte# 0.86 X10^3/uL; NRBC Flagged by Analyzer 0 % (0-5); Neutrophil % 61.6 % (47-70); Platelet Count 178 K/mm3 (150-450); RBC Distribution Width CV 13.4 % (11.6-14.6); RBC Distribution Width SD 45.5 fl (35.1-43.9); Red Blood Count 4.46 M/mm3 (4.6-6.2); White Blood Count 8.6 K/mm3 (4.4-11.0)
[2022-06-17 09:22] LABS: Protein:Creat Ratio 186 mg/g CRE (0-200)
[2022-06-17 09:55] LABS: Squamous Epithelial Cells - UA 0-5 SEEN /hpf (0-5); White Blood Cells 0-5 SEEN /hpf (0-5)
[2022-06-17 10:36] LABS: Albumin, Serum 2.8 g/dL (3.2-5.0); BUN 20 mg/dL (7-18); BUN/Creat Ratio 12.6 RATIO (10-20); Calcium,Total 8.6 mg/dL (8.5-10.1); Chloride 108 mmol/L (98-107); Creatinine, Serum 1.59 mg/dL (0.70-1.30); EST Glomerular Filtration Rate 48 mL/min (>60); Est Glom Filt Rate - Afr Amer 58 mL/min (>60); Glucose 133 mg/dL (74-106); Phosphorus 3.8 mg/dL (2.5-4.9); Potassium 3.8 mmol/L (3.5-5.1); Sodium Level 140 mmol/L (136-145)
== END ==
LOC: OLS.SANC 05:00
PROVIDERS: PCP Family Medicine; Visit Provider Internal Medicine
DX: I10 Essential (primary) hypertension (principal); E11.9 Type 2 diabetes mellitus without complications; E78.5 Hyperlipidemia, unspecified
CPT/HCPCS: 36415; 80069; 81001; 82570; 84156; 85025

== ENCOUNTER → 2022-06-28 | Outpatient (REF) | payer MEDICARE, MEDICAID, SELFPAY ==
[2022-06-28 10:07] LABS: Cholesterol 149 mg/dL (200); High Density Lipoprotein 34 mg/dL; Triglycerides 379 mg/dL; Uric Acid 5.9 mg/dL (3.5-7.2); Very Low Density Lipoprotein 76 mg/dL (5-40)
== END ==
LOC: OLS.SANC 05:00
PROVIDERS: PCP Family Medicine; Visit Provider Family Medicine
DX: I10 Essential (primary) hypertension (principal); E11.9 Type 2 diabetes mellitus without complications; E78.5 Hyperlipidemia, unspecified; Z51.81 Encounter for therapeutic drug level monitoring
CPT/HCPCS: 36415; 80061; 80178; 84550

== ENCOUNTER → 2022-07-15 | Outpatient (REF) | payer MEDICARE, MEDICAID, SELFPAY ==
[2022-07-15 10:05] LABS: Absolute Lymphocyte Count 1.93 X10^3/uL (0.83-4.51); Absolute Neutrophil Count 6.1 X10^3/uL (2.0-7.7); Basophil# 0.12 X10^3/uL; Basophil% 1.3 % (0-1); Eosinophil# 0.16 X10^3/uL; Eosinophils% 1.7 % (0-5); Hemoglobin 14.8 g/dL (13.0-16.5); Lymphocyte # 1.93 X10^3/ul (0.83-4.51); Lymphocyte % 20.9 % (19-41); Mean Corp Hgb Conc 32.2 g/dL (32-36); Mean Corpuscular Hgb 29.5 pg (27.0-32.0); Mean Corpuscular Volume 91.8 fL (80-94); Mean Platelet Vol. 9.7 fl (6.2-12.0); Monocyte# 0.82 X10^3/uL; Monocyte% 8.9 % (0-10); NRBC Flagged by Analyzer 0 % (0-5); Neutrophil # 6.13 X10^3/uL (2.7-7.7); Neutrophil % 66.5 % (47-70); Platelet Count 231 K/mm3 (150-450); RBC Distribution Width CV 13.1 % (11.6-14.6); Red Blood Count 5.01 M/mm3 (4.6-6.2); White Blood Count 9.2 K/mm3 (4.4-11.0)
[2022-07-15 10:13] LABS: Color, Urine Yellow (Yellow); Glucose, Dipstick Normal (Normal); Ketone-Dipstick Negative (Negative); Leukocyte Esterase-Dipstick 100 /ul (Negative); Nitrite-Dipstick Negative (Negative); Occult Blood-Urine Negative /ul (Negative); Protein-Dipstick 30 mg/dl (Negative); Specific Gravity, Urine 1.015 (1.002-1.030); Urine Bilirubin Dipstick Negative (Negative); Urine Clarity Sl. Cloudy (Clear); Urine Urobilinogen Normal (Normal)
[2022-07-15 10:23] LABS: Albumin, Serum 3.1 g/dL (3.2-5.0); BUN 25 mg/dL (7-18); BUN/Creat Ratio 14.9 RATIO (10-20); Calcium,Total 8.6 mg/dL (8.5-10.1); Chloride 107 mmol/L (98-107); Creatinine, Serum 1.68 mg/dL (0.70-1.30); EST Glomerular Filtration Rate 45 mL/min (>60); Est Glom Filt Rate - Afr Amer 54 mL/min (>60); Glucose 126 mg/dL (74-106); Phosphorus 3.9 mg/dL (2.5-4.9); Potassium 4.4 mmol/L (3.5-5.1); Sodium Level 139 mmol/L (136-145)
[2022-07-15 10:28] LABS: Protein, Urine (Random) 26.5 mg/dL (<11.9); Protein:Creat Ratio 232 mg/g CRE (0-200)
== END ==
LOC: OLS.SANC 07:45
PROVIDERS: PCP Family Medicine; Visit Provider Family Medicine
DX: M31.31 Wegener's granulomatosis with renal involvement (principal); N18.30 Chronic kidney disease, stage 3 unspecified; Z79.899 Other long term (current) drug therapy
CPT/HCPCS: 36415; 80069; 81002; 82570; 84156; 85025; 87086; 87088

== ENCOUNTER → 2022-07-28 | Outpatient (REF) | payer MEDICARE, MEDICAID, SELFPAY ==
[2022-07-28 09:46] LABS: Uric Acid 6.3 mg/dL (3.5-7.2)
== END ==
LOC: OLS.SANC 05:00
PROVIDERS: PCP Family Medicine; Visit Provider Internal Medicine
DX: Z79.899 Other long term (current) drug therapy (principal)
CPT/HCPCS: 36415; 80178; 84550

== ENCOUNTER → 2022-08-12 | Outpatient (REF) | payer MEDICARE, MEDICAID, SELFPAY ==
[2022-08-12 09:41] LABS: Color, Urine Yellow (Yellow); Glucose, Dipstick Normal (Normal); Ketone-Dipstick Negative (Negative); Leukocyte Esterase-Dipstick 500 /ul (Negative); Nitrite-Dipstick Negative (Negative); Occult Blood-Urine Negative /ul (Negative); Protein-Dipstick 15 mg/dl (Negative); Specific Gravity, Urine 1.015 (1.002-1.030); Urine Bilirubin Dipstick Negative (Negative); Urine Clarity Clear (Clear); Urine Urobilinogen Normal (Normal)
[2022-08-12 09:45] LABS: Absolute Lymphocyte Count 2.09 X10^3/uL (0.83-4.51); Absolute Neutrophil Count 5.5 X10^3/uL (2.0-7.7); Basophil# 0.08 X10^3/uL; Basophil% 0.9 % (0-1); Eosinophil# 0.24 X10^3/uL; Eosinophils% 2.8 % (0-5); Hematocrit 44.8 % (40-54); Hemoglobin 14.5 g/dL (13.0-16.5); Lymphocyte # 2.09 X10^3/ul (0.83-4.51); Lymphocyte % 24.1 % (19-41); Mean Corp Hgb Conc 32.4 g/dL (32-36); Mean Corpuscular Hgb 29.5 pg (27.0-32.0); Mean Corpuscular Volume 91.1 fL (80-94); Mean Platelet Vol. 9.8 fl (6.2-12.0); Monocyte# 0.72 X10^3/uL; Monocyte% 8.3 % (0-10); NRBC Flagged by Analyzer 0 % (0-5); Neutrophil # 5.51 X10^3/uL (2.7-7.7); Neutrophil % 63.4 % (47-70); Platelet Count 238 K/mm3 (150-450); RBC Distribution Width CV 12.9 % (11.6-14.6); RBC Distribution Width SD 43.3 fl (35.1-43.9); Red Blood Count 4.92 M/mm3 (4.6-6.2); White Blood Count 8.7 K/mm3 (4.4-11.0)
[2022-08-12 09:53] LABS: Protein, Urine (Random) 19.9 mg/dL (<11.9); Protein:Creat Ratio 195 mg/g CRE (0-200); Red Blood Cells-Urine 0 SEEN /hpf (0-5); Squamous Epithelial Cells - UA 0-5 SEEN /hpf (0-5); White Blood Cells 10-25 SEEN /hpf (0-5)
[2022-08-12 09:54] LABS: Bacteria RARE /hpf (None Seen)
[2022-08-12 09:54] LABS: Albumin, Serum 2.9 g/dL (3.2-5.0); BUN 25 mg/dL (7-18); BUN/Creat Ratio 14.9 RATIO (10-20); Calcium,Total 9.2 mg/dL (8.5-10.1); Chloride 107 mmol/L (98-107); Creatinine, Serum 1.68 mg/dL (0.70-1.30); EST Glomerular Filtration Rate 45 mL/min (>60); Est Glom Filt Rate - Afr Amer 54 mL/min (>60); Glucose 151 mg/dL (74-106); Phosphorus 3.6 mg/dL (2.5-4.9); Sodium Level 140 mmol/L (136-145)
== END ==
LOC: OLS.SANC 05:00
PROVIDERS: PCP Family Medicine; Visit Provider Internal Medicine
DX: I12.9 Hypertensive chronic kidney disease with stage 1 through stage 4 chronic kidney disease, or unspecified chronic kidney disease (principal); E11.22 Type 2 diabetes mellitus with diabetic chronic kidney disease; N18.9 Chronic kidney disease, unspecified; Z79.899 Other long term (current) drug therapy
CPT/HCPCS: 36415; 80069; 81001; 82570; 84156; 85025; 87077; 87086; 87088; 87186

== ENCOUNTER → 2022-08-23 | Outpatient (REF) | payer MEDICARE, MEDICAID, SELFPAY | LOC: OLS.SANC 04:00 | PROVIDERS: PCP Family Medicine; Referring Provider Family Medicine; Visit Provider Family Medicine | DX: F25.0 Schizoaffective disorder, bipolar type (principal) | CPT/HCPCS: 36415; 80178 ==

== ENCOUNTER → 2022-08-27 | Outpatient (REF) | payer MEDICARE, MEDICAID, SELFPAY ==
[2022-08-27 08:52] LABS: Uric Acid 6.4 mg/dL (3.5-7.2)
== END ==
LOC: OLS.SANC 05:00
PROVIDERS: PCP Family Medicine; Visit Provider Family Medicine
DX: I10 Essential (primary) hypertension (principal); E11.9 Type 2 diabetes mellitus without complications; E78.5 Hyperlipidemia, unspecified
CPT/HCPCS: 36415; 84550

== ENCOUNTER → 2022-09-17 | Outpatient (REF) | payer MEDICARE, MEDICAID, SELFPAY ==
[2022-09-17 08:43] LABS: Absolute Lymphocyte Count 2.69 X10^3/uL (0.83-4.51); Absolute Neutrophil Count 5.1 X10^3/uL (2.0-7.7); Basophil# 0.08 X10^3/uL; Basophil% 0.9 % (0-1); Eosinophil# 0.29 X10^3/uL; Eosinophils% 3.2 % (0-5); Hematocrit 44.2 % (40-54); Hemoglobin 14.8 g/dL (13.0-16.5); Lymphocyte # 2.69 X10^3/ul (0.83-4.51); Lymphocyte % 29.8 % (19-41); Mean Corp Hgb Conc 33.5 g/dL (32-36); Mean Corpuscular Hgb 29.7 pg (27.0-32.0); Mean Corpuscular Volume 88.6 fL (80-94); Mean Platelet Vol. 10.2 fl (6.2-12.0); Monocyte# 0.85 X10^3/uL; Monocyte% 9.4 % (0-10); NRBC Flagged by Analyzer 0 % (0-5); Neutrophil # 5.08 X10^3/uL (2.7-7.7); Neutrophil % 56.1 % (47-70); Platelet Count 178 K/mm3 (150-450); RBC Distribution Width CV 13.2 % (11.6-14.6); RBC Distribution Width SD 42.8 fl (35.1-43.9); Red Blood Count 4.99 M/mm3 (4.6-6.2)
[2022-09-17 08:52] LABS: BUN 20 mg/dL (7-18); BUN/Creat Ratio 11.4 RATIO (10-20); Chloride 105 mmol/L (98-107); Creatinine, Serum 1.76 mg/dL (0.70-1.30); EST Glomerular Filtration Rate 42 mL/min (>60); Est Glom Filt Rate - Afr Amer 51 mL/min (>60); Glucose 141 mg/dL (74-106); Phosphorus 3.8 mg/dL (2.5-4.9); Potassium 3.8 mmol/L (3.5-5.1); Sodium Level 139 mmol/L (136-145)
[2022-09-17 09:34] LABS: Protein, Urine (Random) 20.9 mg/dL (<11.9); Protein:Creat Ratio 163 mg/g CRE (0-200)
== END ==
LOC: OLS.SANC 05:00
PROVIDERS: PCP Family Medicine; Visit Provider Family Medicine
DX: I10 Essential (primary) hypertension (principal); E11.9 Type 2 diabetes mellitus without complications; E78.5 Hyperlipidemia, unspecified
CPT/HCPCS: 36415; 80069; 80178; 82570; 84156; 85025

== ENCOUNTER → 2022-09-27 | Outpatient (REF) | payer MEDICARE, MEDICAID, SELFPAY | LOC: OLS.SANC 05:00 | PROVIDERS: PCP Family Medicine; Visit Provider Internal Medicine | DX: M1A.00X0 Idiopathic chronic gout, unspecified site, without tophus (tophi) (principal) | CPT/HCPCS: 36415; 84550 ==

== ENCOUNTER → 2022-10-15 | Outpatient (REF) | payer MEDICARE, MEDICAID, SELFPAY ==
[2022-10-15 09:01] LABS: Absolute Neutrophil Count 4.8 X10^3/uL (2.0-7.7); Basophil# 0.08 X10^3/uL; Eosinophil# 0.27 X10^3/uL; Eosinophils% 3.2 % (0-5); Hemoglobin 13.9 g/dL (13.0-16.5); Lymphocyte % 27.6 % (19-41); Mean Corp Hgb Conc 32.3 g/dL (32-36); Mean Corpuscular Hgb 28.9 pg (27.0-32.0); Mean Corpuscular Volume 89.4 fL (80-94); Mean Platelet Vol. 10.1 fl (6.2-12.0); Monocyte# 0.76 X10^3/uL; Monocyte% 9.1 % (0-10); NRBC Flagged by Analyzer 0 % (0-5); Neutrophil # 4.84 X10^3/uL (2.7-7.7); Neutrophil % 58.3 % (47-70); Platelet Count 200 K/mm3 (150-450); RBC Distribution Width CV 13.2 % (11.6-14.6); RBC Distribution Width SD 42.9 fl (35.1-43.9); Red Blood Count 4.81 M/mm3 (4.6-6.2); White Blood Count 8.3 K/mm3 (4.4-11.0)
[2022-10-15 09:06] LABS: Albumin, Serum 2.9 g/dL (3.2-5.0); BUN 22 mg/dL (7-18); BUN/Creat Ratio 11.3 RATIO (10-20); Calcium,Total 9.1 mg/dL (8.5-10.1); Chloride 108 mmol/L (98-107); Creatinine, Serum 1.94 mg/dL (0.70-1.30); EST Glomerular Filtration Rate 38 mL/min (>60); Est Glom Filt Rate - Afr Amer 46 mL/min (>60); Glucose 168 mg/dL (74-106); Phosphorus 4.2 mg/dL (2.5-4.9); Potassium 4.1 mmol/L (3.5-5.1); Sodium Level 140 mmol/L (136-145)
== END ==
LOC: OLS.SANC 05:00
PROVIDERS: PCP Family Medicine; Referring Provider Internal Medicine; Visit Provider Internal Medicine
DX: Z79.899 Other long term (current) drug therapy (principal)
CPT/HCPCS: 36415; 80069; 80178; 85025

== ENCOUNTER → 2022-10-27 | Outpatient (REF) | payer MEDICARE, MEDICAID, SELFPAY ==
[2022-10-27 10:26] LABS: Uric Acid 6.4 mg/dL (3.5-7.2)
== END ==
LOC: OLS.SANC 05:00
PROVIDERS: PCP Family Medicine; Visit Provider Internal Medicine
DX: Z79.899 Other long term (current) drug therapy (principal)
CPT/HCPCS: 36415; 84550

== ENCOUNTER → 2022-11-12 | Outpatient (REF) | payer MEDICARE, MEDICAID, SELFPAY ==
[2022-11-12 08:00] LABS: Absolute Lymphocyte Count 2.11 X10^3/uL (0.83-4.51); Absolute Neutrophil Count 6.1 X10^3/uL (2.0-7.7); Basophil# 0.07 X10^3/uL; Basophil% 0.7 % (0-1); Eosinophil# 0.23 X10^3/uL; Eosinophils% 2.4 % (0-5); Hematocrit 41.6 % (40-54); Hemoglobin 13.9 g/dL (13.0-16.5); Lymphocyte # 2.11 X10^3/ul (0.83-4.51); Lymphocyte % 21.9 % (19-41); Mean Corp Hgb Conc 33.4 g/dL (32-36); Mean Corpuscular Hgb 29.8 pg (27.0-32.0); Mean Corpuscular Volume 89.1 fL (80-94); Mean Platelet Vol. 9.8 fl (6.2-12.0); Monocyte# 1.04 X10^3/uL; Monocyte% 10.8 % (0-10); NRBC Flagged by Analyzer 0 % (0-5); Neutrophil # 6.12 X10^3/uL (2.7-7.7); Neutrophil % 63.5 % (47-70); Platelet Count 200 K/mm3 (150-450); RBC Distribution Width CV 13.2 % (11.6-14.6); RBC Distribution Width SD 43.2 fl (35.1-43.9); Red Blood Count 4.67 M/mm3 (4.6-6.2); White Blood Count 9.6 K/mm3 (4.4-11.0)
[2022-11-12 08:12] LABS: Albumin, Serum 2.9 g/dL (3.2-5.0); BUN 21 mg/dL (7-18); BUN/Creat Ratio 11.4 RATIO (10-20); Calcium,Total 8.7 mg/dL (8.5-10.1); Chloride 106 mmol/L (98-107); Creatinine, Serum 1.85 mg/dL (0.70-1.30); EST Glomerular Filtration Rate 40 mL/min (>60); Est Glom Filt Rate - Afr Amer 48 mL/min (>60); Glucose 169 mg/dL (74-106); Phosphorus 3.3 mg/dL (2.5-4.9); Potassium 3.5 mmol/L (3.5-5.1); Sodium Level 138 mmol/L (136-145)
== END ==
LOC: OLS.SANC 05:00
PROVIDERS: PCP Family Medicine; Visit Provider Internal Medicine
DX: Z79.899 Other long term (current) drug therapy (principal)
CPT/HCPCS: 36415; 80069; 80178; 85025

== ENCOUNTER → 2022-11-17 | Outpatient (REF) | payer MEDICARE, MEDICAID, SELFPAY ==
[2022-11-18 10:01] LABS: Protein, Urine (Random) 16.5 mg/dL (<11.9); Protein:Creat Ratio 221 mg/g CRE (0-200)
== END ==
LOC: OLS.SANC 09:42
PROVIDERS: PCP Family Medicine; Visit Provider Family Medicine
DX: N18.30 Chronic kidney disease, stage 3 unspecified (principal)
CPT/HCPCS: 82570; 84156

== ENCOUNTER → 2022-12-10 | Outpatient (REF) | payer MEDICARE, MEDICAID, SELFPAY ==
[2022-12-10 09:54] LABS: Absolute Lymphocyte Count 1.96 X10^3/uL (0.83-4.51); Absolute Neutrophil Count 4.9 X10^3/uL (2.0-7.7); Basophil% 1.2 % (0-1); Eosinophil# 0.29 X10^3/uL; Eosinophils% 3.6 % (0-5); Hematocrit 44.4 % (40-54); Hemoglobin 14.4 g/dL (13.0-16.5); Lymphocyte # 1.96 X10^3/ul (0.83-4.51); Lymphocyte % 24.1 % (19-41); Mean Corp Hgb Conc 32.4 g/dL (32-36); Mean Corpuscular Volume 89.5 fL (80-94); Mean Platelet Vol. 9.8 fl (6.2-12.0); Monocyte# 0.86 X10^3/uL; Monocyte% 10.6 % (0-10); NRBC Flagged by Analyzer 0 % (0-5); Neutrophil # 4.89 X10^3/uL (2.7-7.7); Neutrophil % 60.1 % (47-70); Platelet Count 213 K/mm3 (150-450); RBC Distribution Width SD 42.6 fl (35.1-43.9); Red Blood Count 4.96 M/mm3 (4.6-6.2); White Blood Count 8.1 K/mm3 (4.4-11.0)
[2022-12-10 10:04] LABS: Albumin, Serum 2.8 g/dL (3.2-5.0); BUN 18 mg/dL (7-18); BUN/Creat Ratio 10.1 RATIO (10-20); Calcium,Total 8.8 mg/dL (8.5-10.1); Chloride 106 mmol/L (98-107); Creatinine, Serum 1.79 mg/dL (0.70-1.30); EST Glomerular Filtration Rate 41 mL/min (>60); Est Glom Filt Rate - Afr Amer 50 mL/min (>60); Glucose 155 mg/dL (74-106); Potassium 4.1 mmol/L (3.5-5.1); Sodium Level 140 mmol/L (136-145)
== END ==
LOC: OLS.SANC 05:00
PROVIDERS: PCP Family Medicine; Visit Provider Family Medicine
DX: N18.9 Chronic kidney disease, unspecified (principal)
CPT/HCPCS: 36415; 80069; 80178; 85025

== ENCOUNTER → 2022-12-15 | Outpatient (REF) | payer MEDICARE, MEDICAID, SELFPAY ==
[2022-12-15 09:44] LABS: Protein, Urine (Random) 29.9 mg/dL (<11.9); Protein:Creat Ratio 212 mg/g CRE (0-200)
== END ==
LOC: OLS.SANC 04:00
PROVIDERS: PCP Family Medicine; Visit Provider Family Medicine
DX: Z79.899 Other long term (current) drug therapy (principal)
CPT/HCPCS: 82570; 84156

== ENCOUNTER → 2022-12-28 | Outpatient (REF) | payer MEDICARE, MEDICAID, SELFPAY ==
[2022-12-28 08:47] LABS: Uric Acid 5.9 mg/dL (3.5-7.2)
== END ==
LOC: OLS.SANC 05:00
PROVIDERS: PCP Family Medicine; Visit Provider Family Medicine
DX: Z79.899 Other long term (current) drug therapy (principal)
CPT/HCPCS: 36415; 84550

== ENCOUNTER → 2023-01-07 | Outpatient (REF) | payer MEDICARE, MEDICAID, SELFPAY ==
[2023-01-07 08:28] LABS: Absolute Lymphocyte Count 2.02 X10^3/uL (0.83-4.51); Absolute Neutrophil Count 5.8 X10^3/uL (2.0-7.7); Basophil# 0.09 X10^3/uL; Eosinophil# 0.26 X10^3/uL; Eosinophils% 2.8 % (0-5); Hematocrit 41.9 % (40-54); Hemoglobin 13.5 g/dL (13.0-16.5); Lymphocyte # 2.02 X10^3/ul (0.83-4.51); Lymphocyte % 21.8 % (19-41); Mean Corp Hgb Conc 32.2 g/dL (32-36); Mean Corpuscular Hgb 28.9 pg (27.0-32.0); Mean Corpuscular Volume 89.7 fL (80-94); Mean Platelet Vol. 9.8 fl (6.2-12.0); Monocyte# 1.07 X10^3/uL; Monocyte% 11.6 % (0-10); NRBC Flagged by Analyzer 0 % (0-5); Neutrophil # 5.75 X10^3/uL (2.7-7.7); Neutrophil % 62.2 % (47-70); Platelet Count 203 K/mm3 (150-450); RBC Distribution Width CV 13.1 % (11.6-14.6); RBC Distribution Width SD 42.5 fl (35.1-43.9); Red Blood Count 4.67 M/mm3 (4.6-6.2); White Blood Count 9.3 K/mm3 (4.4-11.0)
[2023-01-07 08:41] LABS: Albumin, Serum 2.9 g/dL (3.2-5.0); BUN 25 mg/dL (7-18); BUN/Creat Ratio 13.4 RATIO (10-20); Chloride 109 mmol/L (98-107); Creatinine, Serum 1.86 mg/dL (0.70-1.30); EST Glomerular Filtration Rate 40 mL/min (>60); Est Glom Filt Rate - Afr Amer 48 mL/min (>60); Glucose 236 mg/dL (74-106); Phosphorus 3.6 mg/dL (2.5-4.9); Potassium 4.1 mmol/L (3.5-5.1); Sodium Level 141 mmol/L (136-145)
== END ==
LOC: OLS.SANC 05:00
PROVIDERS: PCP Family Medicine; Visit Provider Internal Medicine
DX: E11.9 Type 2 diabetes mellitus without complications (principal); I10 Essential (primary) hypertension; E78.5 Hyperlipidemia, unspecified; Z79.899 Other long term (current) drug therapy
CPT/HCPCS: 36415; 80069; 80178; 85025

== ENCOUNTER → 2023-01-19 | Outpatient (REF) | payer MEDICARE, MEDICAID, SELFPAY ==
[2023-01-19 10:14] LABS: Cholesterol 160 mg/dL (200); High Density Lipoprotein 38 mg/dL; Triglycerides 322 mg/dL; Very Low Density Lipoprotein 64 mg/dL (5-40)
== END ==
LOC: OLS.SANC 05:00
PROVIDERS: PCP Family Medicine; Visit Provider Internal Medicine
DX: E78.5 Hyperlipidemia, unspecified (principal)
CPT/HCPCS: 36415; 80061

== ENCOUNTER → 2023-01-25 | Outpatient (REF) | payer MEDICARE, MEDICAID, SELFPAY ==
[2023-01-25 09:40] LABS: Uric Acid 5.8 mg/dL (3.5-7.2)
== END ==
LOC: OLS.SANC 05:00
PROVIDERS: PCP Family Medicine; Referring Provider Family Medicine; Visit Provider Family Medicine
DX: M1A.00X0 Idiopathic chronic gout, unspecified site, without tophus (tophi) (principal)
CPT/HCPCS: 36415; 84550

== ENCOUNTER → 2023-02-04 | Outpatient (REF) | payer MEDICARE, MEDICAID, SELFPAY ==
[2023-02-04 09:33] LABS: Absolute Lymphocyte Count 2.03 X10^3/uL (0.83-4.51); Absolute Neutrophil Count 6.1 X10^3/uL (2.0-7.7); Basophil# 0.11 X10^3/uL; Basophil% 1.2 % (0-1); Eosinophil# 0.34 X10^3/uL; Eosinophils% 3.6 % (0-5); Hematocrit 45.3 % (40-54); Hemoglobin 13.9 g/dL (13.0-16.5); Lymphocyte # 2.03 X10^3/ul (0.83-4.51); Lymphocyte % 21.4 % (19-41); Mean Corp Hgb Conc 30.7 g/dL (32-36); Mean Corpuscular Hgb 28.9 pg (27.0-32.0); Mean Corpuscular Volume 94.2 fL (80-94); Mean Platelet Vol. 9.4 fl (6.2-12.0); Monocyte# 0.87 X10^3/uL; Monocyte% 9.2 % (0-10); NRBC Flagged by Analyzer 0 % (0-5); Neutrophil # 6.05 X10^3/uL (2.7-7.7); Neutrophil % 63.9 % (47-70); Platelet Count 182 K/mm3 (150-450); RBC Distribution Width CV 13.1 % (11.6-14.6); RBC Distribution Width SD 45.1 fl (35.1-43.9); Red Blood Count 4.81 M/mm3 (4.6-6.2); White Blood Count 9.5 K/mm3 (4.4-11.0)
[2023-02-04 09:53] LABS: Albumin, Serum 2.9 g/dL (3.2-5.0); BUN 25 mg/dL (7-18); BUN/Creat Ratio 14.6 RATIO (10-20); Calcium,Total 8.9 mg/dL (8.5-10.1); Chloride 108 mmol/L (98-107); Creatinine, Serum 1.71 mg/dL (0.70-1.30); EST Glomerular Filtration Rate 44 mL/min (>60); Est Glom Filt Rate - Afr Amer 53 mL/min (>60); Glucose 193 mg/dL (74-106); Phosphorus 4.3 mg/dL (2.5-4.9); Sodium Level 139 mmol/L (136-145)
== END ==
LOC: OLS.SANC 05:00
PROVIDERS: PCP Family Medicine; Visit Provider Internal Medicine
DX: E11.9 Type 2 diabetes mellitus without complications (principal); I10 Essential (primary) hypertension; E78.5 Hyperlipidemia, unspecified; Z79.899 Other long term (current) drug therapy
CPT/HCPCS: 36415; 80069; 80178; 85025

== ENCOUNTER → 2023-02-25 | Outpatient (REF) | payer MEDICARE, MEDICAID, SELFPAY ==
[2023-02-25 08:07] LABS: Uric Acid 5.6 mg/dL (3.5-7.2)
== END ==
LOC: OLS.SANC 05:00
PROVIDERS: PCP Family Medicine; Visit Provider Internal Medicine
DX: I12.9 Hypertensive chronic kidney disease with stage 1 through stage 4 chronic kidney disease, or unspecified chronic kidney disease (principal); N18.9 Chronic kidney disease, unspecified
CPT/HCPCS: 36415; 84550

== ENCOUNTER → 2023-03-04 | Outpatient (REF) | payer MEDICARE, MEDICAID, SELFPAY ==
[2023-03-04 08:01] LABS: Absolute Lymphocyte Count 2.18 X10^3/uL (0.83-4.51); Absolute Neutrophil Count 6.1 X10^3/uL (2.0-7.7); Basophil# 0.09 X10^3/uL; Basophil% 0.9 % (0-1); Eosinophil# 0.34 X10^3/uL; Eosinophils% 3.5 % (0-5); Hematocrit 42.8 % (40-54); Hemoglobin 13.6 g/dL (13.0-16.5); Lymphocyte # 2.18 X10^3/ul (0.83-4.51); Lymphocyte % 22.6 % (19-41); Mean Corp Hgb Conc 31.8 g/dL (32-36); Mean Corpuscular Hgb 28.7 pg (27.0-32.0); Mean Corpuscular Volume 90.3 fL (80-94); Mean Platelet Vol. 9.7 fl (6.2-12.0); Monocyte# 0.91 X10^3/uL; Monocyte% 9.4 % (0-10); NRBC Flagged by Analyzer 0 % (0-5); Neutrophil # 6.08 X10^3/uL (2.7-7.7); Neutrophil % 63.2 % (47-70); Platelet Count 207 K/mm3 (150-450); RBC Distribution Width CV 12.9 % (11.6-14.6); RBC Distribution Width SD 42.8 fl (35.1-43.9); Red Blood Count 4.74 M/mm3 (4.6-6.2); White Blood Count 9.6 K/mm3 (4.4-11.0)
[2023-03-04 08:17] LABS: Albumin, Serum 2.8 g/dL (3.2-5.0); BUN 23 mg/dL (7-18); BUN/Creat Ratio 13.9 RATIO (10-20); Calcium,Total 9.2 mg/dL (8.5-10.1); Chloride 109 mmol/L (98-107); Creatinine, Serum 1.65 mg/dL (0.70-1.30); EST Glomerular Filtration Rate 46 mL/min (>60); Est Glom Filt Rate - Afr Amer 55 mL/min (>60); Glucose 179 mg/dL (74-106); Phosphorus 3.9 mg/dL (2.5-4.9); Potassium 3.9 mmol/L (3.5-5.1); Sodium Level 138 mmol/L (136-145)
== END ==
LOC: OLS.SANC 05:00
PROVIDERS: PCP Family Medicine; Visit Provider Internal Medicine
DX: E11.9 Type 2 diabetes mellitus without complications (principal); I10 Essential (primary) hypertension; Z79.899 Other long term (current) drug therapy
CPT/HCPCS: 36415; 80069; 80178; 85025

== ENCOUNTER → 2023-04-01 | Outpatient (REF) | payer MEDICARE, MEDICAID, SELFPAY ==
[2023-04-01 09:48] LABS: Absolute Lymphocyte Count 1.91 X10^3/uL (0.83-4.51); Absolute Neutrophil Count 5.4 X10^3/uL (2.0-7.7); Basophil# 0.09 X10^3/uL; Basophil% 1.1 % (0-1); Eosinophil# 0.23 X10^3/uL; Eosinophils% 2.7 % (0-5); Hematocrit 45.8 % (40-54); Hemoglobin 14.7 g/dL (13.0-16.5); Lymphocyte # 1.91 X10^3/ul (0.83-4.51); Lymphocyte % 22.7 % (19-41); Mean Corp Hgb Conc 32.1 g/dL (32-36); Mean Corpuscular Hgb 28.4 pg (27.0-32.0); Mean Corpuscular Volume 88.6 fL (80-94); Mean Platelet Vol. 9.8 fl (6.2-12.0); Monocyte# 0.69 X10^3/uL; Monocyte% 8.2 % (0-10); NRBC Flagged by Analyzer 0 % (0-5); Neutrophil # 5.44 X10^3/uL (2.7-7.7); Neutrophil % 64.7 % (47-70); Platelet Count 209 K/mm3 (150-450); RBC Distribution Width CV 13.1 % (11.6-14.6); RBC Distribution Width SD 42.5 fl (35.1-43.9); Red Blood Count 5.17 M/mm3 (4.6-6.2); White Blood Count 8.4 K/mm3 (4.4-11.0)
[2023-04-01 09:59] LABS: BUN 25 mg/dL (7-18); BUN/Creat Ratio 13.7 RATIO (10-20); Calcium,Total 8.9 mg/dL (8.5-10.1); Chloride 105 mmol/L (98-107); Creatinine, Serum 1.82 mg/dL (0.70-1.30); EST Glomerular Filtration Rate 41 mL/min (>60); Est Glom Filt Rate - Afr Amer 49 mL/min (>60); Glucose 317 mg/dL (74-106); Phosphorus 3.3 mg/dL (2.5-4.9); Potassium 3.8 mmol/L (3.5-5.1); Sodium Level 137 mmol/L (136-145)
[2023-04-01 10:03] LABS: Lithium < 0.20 mmol/L (0.60-1.20)
== END ==
LOC: OLS.SANC 05:00
PROVIDERS: PCP Family Medicine; Visit Provider Family Medicine
DX: I12.9 Hypertensive chronic kidney disease with stage 1 through stage 4 chronic kidney disease, or unspecified chronic kidney disease (principal); E11.22 Type 2 diabetes mellitus with diabetic chronic kidney disease; E78.5 Hyperlipidemia, unspecified; N18.30 Chronic kidney disease, stage 3 unspecified; Z79.899 Other long term (current) drug therapy
CPT/HCPCS: 36415; 80069; 80178; 85025

== ENCOUNTER → 2023-04-04 | Outpatient (REF) | payer MEDICARE, MEDICAID, SELFPAY ==
[2023-04-04 09:49] LABS: Protein, Urine (Random) 26.4 mg/dL (<11.9); Protein:Creat Ratio 274 mg/g CRE (0-200)
== END ==
LOC: OLS.SANC 06:30
PROVIDERS: PCP Family Medicine; Visit Provider Family Medicine
DX: I12.9 Hypertensive chronic kidney disease with stage 1 through stage 4 chronic kidney disease, or unspecified chronic kidney disease (principal); E11.22 Type 2 diabetes mellitus with diabetic chronic kidney disease; N18.30 Chronic kidney disease, stage 3 unspecified; E78.5 Hyperlipidemia, unspecified; Z79.899 Other long term (current) drug therapy
CPT/HCPCS: 82570; 84156

== ENCOUNTER → 2023-04-27 | Outpatient (REF) | payer MEDICARE, MEDICAID, SELFPAY ==
[2023-04-27 09:59] LABS: Uric Acid 4.8 mg/dL (3.5-7.2)
== END ==
LOC: OLS.SANC 05:00
PROVIDERS: PCP Family Medicine; Visit Provider Internal Medicine
DX: Z79.899 Other long term (current) drug therapy (principal)
CPT/HCPCS: 36415; 84550

== ENCOUNTER → 2023-04-29 | Outpatient (REF) | payer MEDICARE, MEDICAID, SELFPAY ==
[2023-04-29 08:12] LABS: Absolute Lymphocyte Count 1.98 X10^3/uL (0.83-4.51); Absolute Neutrophil Count 5.7 X10^3/uL (2.0-7.7); Basophil# 0.09 X10^3/uL; Eosinophil# 0.24 X10^3/uL; Eosinophils% 2.7 % (0-5); Hematocrit 41.6 % (40-54); Hemoglobin 13.6 g/dL (13.0-16.5); Lymphocyte # 1.98 X10^3/ul (0.83-4.51); Lymphocyte % 22.2 % (19-41); Mean Corp Hgb Conc 32.7 g/dL (32-36); Mean Corpuscular Hgb 28.7 pg (27.0-32.0); Mean Corpuscular Volume 87.8 fL (80-94); Mean Platelet Vol. 9.7 fl (6.2-12.0); Monocyte# 0.82 X10^3/uL; Monocyte% 9.2 % (0-10); NRBC Flagged by Analyzer 0 % (0-5); Neutrophil # 5.73 X10^3/uL (2.7-7.7); Neutrophil % 64.2 % (47-70); Platelet Count 204 K/mm3 (150-450); RBC Distribution Width CV 12.9 % (11.6-14.6); RBC Distribution Width SD 41.7 fl (35.1-43.9); Red Blood Count 4.74 M/mm3 (4.6-6.2); White Blood Count 8.9 K/mm3 (4.4-11.0)
[2023-04-29 08:30] LABS: Albumin, Serum 2.7 g/dL (3.2-5.0); BUN 24 mg/dL (7-18); BUN/Creat Ratio 13.7 RATIO (10-20); Calcium,Total 8.9 mg/dL (8.5-10.1); Chloride 105 mmol/L (98-107); Creatinine, Serum 1.75 mg/dL (0.70-1.30); EST Glomerular Filtration Rate 43 mL/min (>60); Est Glom Filt Rate - Afr Amer 51 mL/min (>60); Glucose 300 mg/dL (74-106); Phosphorus 3.6 mg/dL (2.5-4.9); Potassium 3.9 mmol/L (3.5-5.1); Sodium Level 138 mmol/L (136-145)
== END ==
LOC: OLS.SANC 05:00
PROVIDERS: PCP Family Medicine; Visit Provider Internal Medicine
DX: I12.9 Hypertensive chronic kidney disease with stage 1 through stage 4 chronic kidney disease, or unspecified chronic kidney disease (principal); E11.22 Type 2 diabetes mellitus with diabetic chronic kidney disease; N18.30 Chronic kidney disease, stage 3 unspecified; E78.5 Hyperlipidemia, unspecified; M1A.00X0 Idiopathic chronic gout, unspecified site, without tophus (tophi); M62.89 Other specified disorders of muscle; Z87.820 Personal history of traumatic brain injury
CPT/HCPCS: 36415; 80069; 80178; 85025

== ENCOUNTER → 2023-05-19 | Outpatient (REF) | payer MEDICARE, MEDICAID, SELFPAY ==
[2023-05-19 10:13] LABS: Hemoglobin A1c 11.1 % (3.8-5.6)
== END ==
LOC: OLS.SANC 04:00
PROVIDERS: PCP Family Medicine; Referring Provider Family Medicine; Visit Provider Family Medicine
DX: E11.9 Type 2 diabetes mellitus without complications (principal); E78.5 Hyperlipidemia, unspecified; I10 Essential (primary) hypertension
CPT/HCPCS: 36415; 83036

== ENCOUNTER → 2023-05-27 | Outpatient (REF) | payer MEDICARE, MEDICAID, SELFPAY ==
[2023-05-27 09:24] LABS: Absolute Lymphocyte Count 1.85 X10^3/uL (0.83-4.51); Absolute Neutrophil Count 5.6 X10^3/uL (2.0-7.7); Basophil% 1.1 % (0-1); Eosinophil# 0.29 X10^3/uL; Eosinophils% 3.3 % (0-5); Hematocrit 44.6 % (40-54); Hemoglobin 14.4 g/dL (13.0-16.5); Lymphocyte # 1.85 X10^3/ul (0.83-4.51); Lymphocyte % 21.2 % (19-41); Mean Corp Hgb Conc 32.3 g/dL (32-36); Mean Corpuscular Hgb 28.9 pg (27.0-32.0); Mean Corpuscular Volume 89.6 fL (80-94); Monocyte# 0.81 X10^3/uL; Monocyte% 9.3 % (0-10); NRBC Flagged by Analyzer 0 % (0-5); Neutrophil # 5.62 X10^3/uL (2.7-7.7); Neutrophil % 64.5 % (47-70); Platelet Count 211 K/mm3 (150-450); RBC Distribution Width SD 42.2 fl (35.1-43.9); Red Blood Count 4.98 M/mm3 (4.6-6.2); White Blood Count 8.7 K/mm3 (4.4-11.0)
[2023-05-27 09:33] LABS: Albumin, Serum 2.9 g/dL (3.2-5.0); BUN 20 mg/dL (7-18); BUN/Creat Ratio 11.5 RATIO (10-20); Calcium,Total 9.2 mg/dL (8.5-10.1); Chloride 106 mmol/L (98-107); Creatinine, Serum 1.74 mg/dL (0.70-1.30); EST Glomerular Filtration Rate 43 mL/min (>60); Est Glom Filt Rate - Afr Amer 52 mL/min (>60); Glucose 208 mg/dL (74-106); Phosphorus 3.9 mg/dL (2.5-4.9); Potassium 3.7 mmol/L (3.5-5.1); Sodium Level 138 mmol/L (136-145); Uric Acid 4.9 mg/dL (3.5-7.2)
== END ==
LOC: OLS.SANC 05:00
PROVIDERS: PCP Family Medicine; Visit Provider Family Medicine
DX: I10 Essential (primary) hypertension (principal); E11.9 Type 2 diabetes mellitus without complications; Z79.899 Other long term (current) drug therapy
CPT/HCPCS: 36415; 80069; 80178; 84550; 85025

== ENCOUNTER → 2023-05-30 | Outpatient (REF) | payer MEDICARE, MEDICAID, SELFPAY ==
[2023-05-31 09:40] LABS: Protein:Creat Ratio 244 mg/g CRE (0-200)
== END ==
LOC: OLS.SANC 21:30
PROVIDERS: PCP Family Medicine; Visit Provider Family Medicine
DX: I10 Essential (primary) hypertension (principal); E11.9 Type 2 diabetes mellitus without complications; Z79.899 Other long term (current) drug therapy
CPT/HCPCS: 82570; 84156

== ENCOUNTER → 2023-06-24 | Outpatient (REF) | payer MEDICARE, MEDICAID, SELFPAY ==
[2023-06-24 07:49] LABS: Absolute Lymphocyte Count 2.04 X10^3/uL (0.83-4.51); Absolute Neutrophil Count 5.9 X10^3/uL (2.0-7.7); Basophil# 0.11 X10^3/uL; Basophil% 1.2 % (0-1); Eosinophil# 0.49 X10^3/uL; Eosinophils% 5.2 % (0-5); Hematocrit 43.8 % (40-54); Hemoglobin 14.2 g/dL (13.0-16.5); Lymphocyte # 2.04 X10^3/ul (0.83-4.51); Lymphocyte % 21.7 % (19-41); Mean Corp Hgb Conc 32.4 g/dL (32-36); Mean Corpuscular Hgb 28.7 pg (27.0-32.0); Mean Corpuscular Volume 88.5 fL (80-94); Mean Platelet Vol. 9.8 fl (6.2-12.0); Monocyte# 0.85 X10^3/uL; Monocyte% 9.1 % (0-10); NRBC Flagged by Analyzer 0 % (0-5); Neutrophil # 5.85 X10^3/uL (2.7-7.7); Neutrophil % 62.3 % (47-70); Platelet Count 213 K/mm3 (150-450); RBC Distribution Width CV 13.1 % (11.6-14.6); RBC Distribution Width SD 42.3 fl (35.1-43.9); Red Blood Count 4.95 M/mm3 (4.6-6.2); White Blood Count 9.4 K/mm3 (4.4-11.0)
[2023-06-24 08:11] LABS: Albumin, Serum 2.9 g/dL (3.2-5.0); BUN 21 mg/dL (7-18); BUN/Creat Ratio 11.5 RATIO (10-20); Calcium,Total 9.1 mg/dL (8.5-10.1); Chloride 107 mmol/L (98-107); Creatinine, Serum 1.83 mg/dL (0.70-1.30); EST Glomerular Filtration Rate 40 mL/min (>60); Est Glom Filt Rate - Afr Amer 49 mL/min (>60); Glucose 144 mg/dL (74-106); Phosphorus 4.4 mg/dL (2.5-4.9); Potassium 3.7 mmol/L (3.5-5.1); Sodium Level 138 mmol/L (136-145)
[2023-06-24 08:20] LABS: Protein, Urine (Random) 19.9 mg/dL (<11.9); Protein:Creat Ratio 157 mg/g CRE (0-200)
[2023-06-27 05:28] LABS: Uric Acid 6.5 mg/dL (3.5-7.2)
== END ==
LOC: OLS.SANC 05:00
PROVIDERS: PCP Family Medicine; Visit Provider Internal Medicine
DX: I10 Essential (primary) hypertension (principal); M06.9 Rheumatoid arthritis, unspecified; E11.9 Type 2 diabetes mellitus without complications; Z79.899 Other long term (current) drug therapy
CPT/HCPCS: 36415; 80069; 80178; 82570; 84156; 84550; 85025

== ENCOUNTER → 2023-07-22 | Outpatient (REF) | payer MEDICARE, MEDICAID, SELFPAY ==
[2023-07-22 08:01] LABS: Absolute Neutrophil Count 6.9 X10^3/uL (2.0-7.7); Basophil# 0.11 X10^3/uL; Basophil% 1.1 % (0-1); Eosinophil# 0.27 X10^3/uL; Eosinophils% 2.7 % (0-5); Hemoglobin 13.6 g/dL (13.0-16.5); Lymphocyte % 16.1 % (19-41); Mean Corp Hgb Conc 28.9 g/dL (32-36); Mean Corpuscular Hgb 28.4 pg (27.0-32.0); Mean Corpuscular Volume 98.1 fL (80-94); Mean Platelet Vol. 10.8 fl (6.2-12.0); Monocyte# 1.01 X10^3/uL; Monocyte% 10.2 % (0-10); NRBC Flagged by Analyzer 0 % (0-5); Neutrophil # 6.86 X10^3/uL (2.7-7.7); Neutrophil % 69.3 % (47-70); Platelet Count 209 K/mm3 (150-450); RBC Distribution Width CV 16.4 % (11.6-14.6); Red Blood Count 4.79 M/mm3 (4.6-6.2); White Blood Count 9.9 K/mm3 (4.4-11.0)
[2023-07-22 08:47] LABS: Albumin, Serum 2.6 g/dL (3.2-5.0); BUN 21 mg/dL (7-18); BUN/Creat Ratio 10.7 RATIO (10-20); Calcium,Total 9.1 mg/dL (8.5-10.1); Chloride 108 mmol/L (98-107); Creatinine, Serum 1.97 mg/dL (0.70-1.30); EST Glomerular Filtration Rate 37 mL/min (>60); Est Glom Filt Rate - Afr Amer 45 mL/min (>60); Glucose 138 mg/dL (74-106); Phosphorus 4.2 mg/dL (2.5-4.9); Potassium 3.8 mmol/L (3.5-5.1); Sodium Level 135 mmol/L (136-145)
== END ==
LOC: OLS.SANC 05:00
PROVIDERS: PCP Family Medicine; Visit Provider Internal Medicine
DX: Z79.899 Other long term (current) drug therapy (principal)
CPT/HCPCS: 36415; 80069; 80178; 85025

== ENCOUNTER → 2023-07-28 | Outpatient (REF) | payer MEDICARE, MEDICAID, SELFPAY ==
[2023-07-28 09:55] LABS: Cholesterol 124 mg/dL (200); High Density Lipoprotein 36 mg/dL; Triglycerides 234 mg/dL; Uric Acid 6.6 mg/dL (3.5-7.2); Very Low Density Lipoprotein 47 mg/dL (5-40)
== END ==
LOC: OLS.SANC 05:00
PROVIDERS: PCP Family Medicine; Visit Provider Family Medicine
DX: M10.9 Gout, unspecified (principal); Z79.899 Other long term (current) drug therapy
CPT/HCPCS: 36415; 80061; 84550

== ENCOUNTER → 2023-08-19 | Outpatient (REF) | payer MEDICARE, MEDICAID, SELFPAY ==
[2023-08-19 08:36] LABS: Absolute Lymphocyte Count 2.02 X10^3/uL (0.83-4.51); Absolute Neutrophil Count 7.4 X10^3/uL (2.0-7.7); Basophil# 0.08 X10^3/uL; Basophil% 0.7 % (0-1); Eosinophil# 0.49 X10^3/uL; Eosinophils% 4.4 % (0-5); Hematocrit 42.1 % (40-54); Hemoglobin 13.5 g/dL (13.0-16.5); Lymphocyte # 2.02 X10^3/ul (0.83-4.51); Lymphocyte % 18.3 % (19-41); Mean Corp Hgb Conc 32.1 g/dL (32-36); Mean Corpuscular Hgb 28.9 pg (27.0-32.0); Mean Corpuscular Volume 90.1 fL (80-94); Mean Platelet Vol. 9.4 fl (6.2-12.0); Monocyte# 1.01 X10^3/uL; Monocyte% 9.1 % (0-10); NRBC Flagged by Analyzer 0 % (0-5); Neutrophil # 7.38 X10^3/uL (2.7-7.7); Neutrophil % 66.8 % (47-70); Platelet Count 218 K/mm3 (150-450); RBC Distribution Width CV 13.8 % (11.6-14.6); RBC Distribution Width SD 45.8 fl (35.1-43.9); Red Blood Count 4.67 M/mm3 (4.6-6.2); White Blood Count 11.1 K/mm3 (4.4-11.0)
[2023-08-19 08:51] LABS: Albumin, Serum 2.9 g/dL (3.2-5.0); BUN 22 mg/dL (7-18); BUN/Creat Ratio 10.9 RATIO (10-20); Chloride 108 mmol/L (98-107); Creatinine, Serum 2.01 mg/dL (0.70-1.30); EST Glomerular Filtration Rate 36 mL/min (>60); Est Glom Filt Rate - Afr Amer 44 mL/min (>60); Glucose 161 mg/dL (74-106); Potassium 3.9 mmol/L (3.5-5.1); Sodium Level 140 mmol/L (136-145)
[2023-08-19 15:50] LABS: Hemoglobin A1c 7.2 % (3.8-5.6)
[2023-08-22 10:14] LABS: Protein, Urine (Random) 19.3 mg/dL (<11.9); Protein:Creat Ratio 184 mg/g CRE (0-200)
== END ==
LOC: OLS.SANC 05:00
PROVIDERS: PCP Family Medicine; Visit Provider Family Medicine
DX: E11.9 Type 2 diabetes mellitus without complications (principal); I10 Essential (primary) hypertension; Z79.899 Other long term (current) drug therapy
CPT/HCPCS: 36415; 80069; 80178; 82570; 83036; 84156; 85025

== ENCOUNTER → 2023-09-16 | Outpatient (REF) | payer MEDICARE, MEDICAID, SELFPAY ==
[2023-09-16 10:11] LABS: Protein, Urine (Random) < 6.0 mg/dL (<11.9); Protein:Creat Ratio 131 mg/g CRE (0-200)
[2023-09-16 10:12] LABS: Absolute Lymphocyte Count 1.78 X10^3/uL (0.83-4.51); Absolute Neutrophil Count 6.3 X10^3/uL (2.0-7.7); Basophil# 0.09 X10^3/uL; Eosinophil# 0.41 X10^3/uL; Eosinophils% 4.4 % (0-5); Hematocrit 41.9 % (40-54); Hemoglobin 13.4 g/dL (13.0-16.5); Lymphocyte # 1.78 X10^3/ul (0.83-4.51); Mean Corpuscular Hgb 28.9 pg (27.0-32.0); Mean Corpuscular Volume 90.5 fL (80-94); Mean Platelet Vol. 9.6 fl (6.2-12.0); Monocyte# 0.78 X10^3/uL; Monocyte% 8.3 % (0-10); NRBC Flagged by Analyzer 0 % (0-5); Platelet Count 212 K/mm3 (150-450); RBC Distribution Width CV 13.9 % (11.6-14.6); RBC Distribution Width SD 46.1 fl (35.1-43.9); Red Blood Count 4.63 M/mm3 (4.6-6.2); White Blood Count 9.4 K/mm3 (4.4-11.0)
[2023-09-16 10:47] LABS: Albumin, Serum 2.9 g/dL (3.2-5.0); BUN 23 mg/dL (7-18); BUN/Creat Ratio 11.6 RATIO (10-20); Chloride 109 mmol/L (98-107); Creatinine, Serum 1.98 mg/dL (0.70-1.30); EST Glomerular Filtration Rate 37 mL/min (>60); Est Glom Filt Rate - Afr Amer 45 mL/min (>60); Glucose 143 mg/dL (74-106); Phosphorus 4.3 mg/dL (2.5-4.9); Potassium 4.1 mmol/L (3.5-5.1); Sodium Level 139 mmol/L (136-145)
== END ==
LOC: OLS.SANC 05:00
PROVIDERS: PCP Family Medicine; Visit Provider Internal Medicine
DX: E11.9 Type 2 diabetes mellitus without complications (principal); I10 Essential (primary) hypertension; Z79.899 Other long term (current) drug therapy
CPT/HCPCS: 36415; 80069; 80178; 82570; 84156; 85025

== ENCOUNTER → 2023-09-27 | Outpatient (REF) | payer MEDICARE, MEDICAID, SELFPAY ==
[2023-09-27 09:53] LABS: Uric Acid 7.3 mg/dL (3.5-7.2)
== END ==
LOC: OLS.SANC 05:00
PROVIDERS: PCP Family Medicine; Visit Provider Family Medicine
DX: E11.9 Type 2 diabetes mellitus without complications (principal); E78.5 Hyperlipidemia, unspecified; I10 Essential (primary) hypertension; F25.0 Schizoaffective disorder, bipolar type; F31.2 Bipolar disorder, current episode manic severe with psychotic features
CPT/HCPCS: 36415; 84550

== ENCOUNTER → 2023-10-14 | Outpatient (REF) | payer MEDICARE, MEDICAID, SELFPAY ==
[2023-10-14 09:14] LABS: Absolute Lymphocyte Count 1.52 X10^3/uL (0.83-4.51); Absolute Neutrophil Count 6.6 X10^3/uL (2.0-7.7); Basophil# 0.11 X10^3/uL; Basophil% 1.2 % (0-1); Eosinophil# 0.48 X10^3/uL; Hematocrit 40.7 % (40-54); Lymphocyte # 1.52 X10^3/ul (0.83-4.51); Lymphocyte % 15.9 % (19-41); Mean Corp Hgb Conc 31.9 g/dL (32-36); Mean Corpuscular Hgb 28.8 pg (27.0-32.0); Mean Corpuscular Volume 90.2 fL (80-94); Mean Platelet Vol. 9.7 fl (6.2-12.0); Monocyte# 0.79 X10^3/uL; Monocyte% 8.3 % (0-10); NRBC Flagged by Analyzer 0 % (0-5); Neutrophil # 6.56 X10^3/uL (2.7-7.7); Neutrophil % 68.8 % (47-70); Platelet Count 224 K/mm3 (150-450); RBC Distribution Width CV 13.2 % (11.6-14.6); RBC Distribution Width SD 43.6 fl (35.1-43.9); Red Blood Count 4.51 M/mm3 (4.6-6.2); White Blood Count 9.5 K/mm3 (4.4-11.0)
[2023-10-14 09:31] LABS: Protein, Urine (Random) 23.4 mg/dL (<11.9); Protein:Creat Ratio 120 mg/g CRE (0-200)
[2023-10-14 09:40] LABS: Albumin, Serum 2.9 g/dL (3.2-5.0); BUN 16 mg/dL (7-18); BUN/Creat Ratio 7.5 RATIO (10-20); Calcium,Total 8.5 mg/dL (8.5-10.1); Chloride 110 mmol/L (98-107); Creatinine, Serum 2.12 mg/dL (0.70-1.30); EST Glomerular Filtration Rate 34 mL/min (>60); Est Glom Filt Rate - Afr Amer 41 mL/min (>60); Glucose 151 mg/dL (74-106); Phosphorus 3.2 mg/dL (2.5-4.9); Potassium 3.8 mmol/L (3.5-5.1); Sodium Level 141 mmol/L (136-145)
== END ==
LOC: OLS.SANC 05:00
PROVIDERS: PCP Family Medicine; Visit Provider Internal Medicine
DX: E11.9 Type 2 diabetes mellitus without complications (principal); I10 Essential (primary) hypertension; Z79.899 Other long term (current) drug therapy
CPT/HCPCS: 36415; 80069; 80178; 82570; 84156; 85025

== ENCOUNTER → 2023-10-27 | Outpatient (REF) | payer MEDICARE, MEDICAID, SELFPAY ==
[2023-10-27 08:58] LABS: Uric Acid 8.1 mg/dL (3.5-7.2)
== END ==
LOC: OLS.SANC 05:00
PROVIDERS: PCP Family Medicine; Visit Provider Family Medicine
DX: M10.9 Gout, unspecified (principal)
CPT/HCPCS: 36415; 84550

== ENCOUNTER → 2023-11-11 | Outpatient (REF) | payer MEDICARE, MEDICAID, SELFPAY ==
[2023-11-11 09:42] LABS: Absolute Neutrophil Count 7.1 X10^3/uL (2.0-7.7); Basophil# 0.09 X10^3/uL; Basophil% 0.8 % (0-1); Eosinophils% 3.4 % (0-5); Hematocrit 44.7 % (40-54); Hemoglobin 14.4 g/dL (13.0-16.5); Lymphocyte % 26.7 % (19-41); Mean Corp Hgb Conc 32.2 g/dL (32-36); Mean Corpuscular Hgb 28.9 pg (27.0-32.0); Mean Corpuscular Volume 89.8 fL (80-94); Mean Platelet Vol. 9.4 fl (6.2-12.0); Monocyte# 0.85 X10^3/uL; Monocyte% 7.3 % (0-10); NRBC Flagged by Analyzer 0 % (0-5); Neutrophil # 7.09 X10^3/uL (2.7-7.7); Platelet Count 252 K/mm3 (150-450); RBC Distribution Width CV 13.1 % (11.6-14.6); RBC Distribution Width SD 42.7 fl (35.1-43.9); Red Blood Count 4.98 M/mm3 (4.6-6.2); White Blood Count 11.6 K/mm3 (4.4-11.0)
[2023-11-11 09:59] LABS: Albumin, Serum 3.1 g/dL (3.2-5.0); BUN 18 mg/dL (7-18); BUN/Creat Ratio 7.8 RATIO (10-20); Calcium,Total 8.9 mg/dL (8.5-10.1); Chloride 108 mmol/L (98-107); Creatinine, Serum 2.31 mg/dL (0.70-1.30); EST Glomerular Filtration Rate 31 mL/min (>60); Est Glom Filt Rate - Afr Amer 37 mL/min (>60); Glucose 120 mg/dL (74-106); Phosphorus 3.6 mg/dL (2.5-4.9); Potassium 3.6 mmol/L (3.5-5.1); Sodium Level 140 mmol/L (136-145)
== END ==
LOC: OLS.SANC 04:00
PROVIDERS: PCP Family Medicine; Referring Provider Family Medicine; Visit Provider Family Medicine
DX: Z79.899 Other long term (current) drug therapy (principal)
CPT/HCPCS: 36415; 80069; 80178; 85025

== ENCOUNTER → 2023-11-16 | Outpatient (REF) | payer MEDICARE, MEDICAID, SELFPAY ==
[2023-11-16 10:01] LABS: Protein, Urine (Random) 28.7 mg/dL (<11.9); Protein:Creat Ratio 161 mg/g CRE (0-200)
== END ==
LOC: OLS.SANC 06:40
PROVIDERS: PCP Family Medicine; Referring Provider Family Medicine; Visit Provider Family Medicine
DX: Z79.899 Other long term (current) drug therapy (principal)
CPT/HCPCS: 82570; 84156

== ENCOUNTER → 2023-12-09 | Outpatient (REF) | payer MEDICARE, MEDICAID, SELFPAY ==
[2023-12-09 10:08] LABS: Absolute Lymphocyte Count 2.24 X10^3/uL (0.83-4.51); Eosinophil# 0.38 X10^3/uL; Eosinophils% 3.9 % (0-5); Hematocrit 43.2 % (40-54); Hemoglobin 13.9 g/dL (13.0-16.5); Lymphocyte # 2.24 X10^3/ul (0.83-4.51); Lymphocyte % 23.2 % (19-41); Mean Corp Hgb Conc 32.2 g/dL (32-36); Mean Corpuscular Volume 90.2 fL (80-94); Mean Platelet Vol. 9.5 fl (6.2-12.0); Monocyte% 9.3 % (0-10); NRBC Flagged by Analyzer 0 % (0-5); Neutrophil % 62.2 % (47-70); Platelet Count 235 K/mm3 (150-450); RBC Distribution Width CV 13.1 % (11.6-14.6); RBC Distribution Width SD 43.2 fl (35.1-43.9); Red Blood Count 4.79 M/mm3 (4.6-6.2); White Blood Count 9.7 K/mm3 (4.4-11.0)
[2023-12-09 10:47] LABS: Albumin, Serum 3.2 g/dL (3.2-5.0); BUN 15 mg/dL (7-18); BUN/Creat Ratio 7.4 RATIO (10-20); Calcium,Total 9.3 mg/dL (8.5-10.1); Chloride 110 mmol/L (98-107); Creatinine, Serum 2.02 mg/dL (0.70-1.30); EST Glomerular Filtration Rate 36 mL/min (>60); Est Glom Filt Rate - Afr Amer 44 mL/min (>60); Glucose 129 mg/dL (74-106); Phosphorus 3.8 mg/dL (2.5-4.9); Potassium 3.5 mmol/L (3.5-5.1); Sodium Level 138 mmol/L (136-145)
== END ==
LOC: OLS.SANC 05:00
PROVIDERS: PCP Family Medicine; Visit Provider Internal Medicine
DX: E11.9 Type 2 diabetes mellitus without complications (principal); I10 Essential (primary) hypertension; Z79.899 Other long term (current) drug therapy
CPT/HCPCS: 36415; 80069; 80178; 85025

== ENCOUNTER → 2024-01-06 | Outpatient (REF) | payer MEDICARE, MEDICAID, SELFPAY ==
[2024-01-06 08:28] LABS: Protein:Creat Ratio 156 mg/g CRE (0-200)
[2024-01-06 08:29] LABS: Absolute Neutrophil Count 6.3 X10^3/uL (2.0-7.7); Basophil# 0.08 X10^3/uL; Basophil% 0.8 % (0-1); Eosinophil# 0.37 X10^3/uL; Eosinophils% 3.9 % (0-5); Hematocrit 41.7 % (40-54); Hemoglobin 13.7 g/dL (13.0-16.5); Lymphocyte % 20.9 % (19-41); Mean Corp Hgb Conc 32.9 g/dL (32-36); Mean Corpuscular Hgb 29.6 pg (27.0-32.0); Mean Corpuscular Volume 90.1 fL (80-94); Mean Platelet Vol. 9.6 fl (6.2-12.0); Monocyte% 8.4 % (0-10); NRBC Flagged by Analyzer 0 % (0-5); Neutrophil # 6.27 X10^3/uL (2.7-7.7); Neutrophil % 65.7 % (47-70); Platelet Count 209 K/mm3 (150-450); RBC Distribution Width CV 13.2 % (11.6-14.6); RBC Distribution Width SD 43.2 fl (35.1-43.9); Red Blood Count 4.63 M/mm3 (4.6-6.2); White Blood Count 9.6 K/mm3 (4.4-11.0)
[2024-01-06 09:00] LABS: Albumin, Serum 3.3 g/dL (3.2-5.0); BUN 18 mg/dL (7-18); BUN/Creat Ratio 8.9 RATIO (10-20); Calcium,Total 9.3 mg/dL (8.5-10.1); Chloride 109 mmol/L (98-107); Creatinine, Serum 2.02 mg/dL (0.70-1.30); EST Glomerular Filtration Rate 36 mL/min (>60); Est Glom Filt Rate - Afr Amer 44 mL/min (>60); Glucose 113 mg/dL (74-106); Phosphorus 4.2 mg/dL (2.5-4.9); Potassium 4.2 mmol/L (3.5-5.1); Sodium Level 143 mmol/L (136-145)
== END ==
LOC: OLS.SANC 05:00
PROVIDERS: PCP Family Medicine; Visit Provider Internal Medicine
DX: I10 Essential (primary) hypertension (principal); E78.5 Hyperlipidemia, unspecified; Z79.899 Other long term (current) drug therapy
CPT/HCPCS: 36415; 80069; 80178; 82570; 84156; 85025

== ENCOUNTER → 2024-02-03 | Outpatient (REF) | payer MEDICARE, MEDICAID, SELFPAY ==
[2024-02-03 09:03] LABS: Absolute Lymphocyte Count 2.12 X10^3/uL (0.83-4.51); Absolute Neutrophil Count 6.8 X10^3/uL (2.0-7.7); Basophil# 0.09 X10^3/uL; Basophil% 0.9 % (0-1); Eosinophils% 3.9 % (0-5); Hematocrit 40.4 % (40-54); Hemoglobin 13.3 g/dL (13.0-16.5); Lymphocyte # 2.12 X10^3/ul (0.83-4.51); Lymphocyte % 20.5 % (19-41); Mean Corp Hgb Conc 32.9 g/dL (32-36); Mean Corpuscular Hgb 29.3 pg (27.0-32.0); Mean Platelet Vol. 9.5 fl (6.2-12.0); Monocyte# 0.91 X10^3/uL; Monocyte% 8.8 % (0-10); NRBC Flagged by Analyzer 0 % (0-5); Neutrophil # 6.77 X10^3/uL (2.7-7.7); Neutrophil % 65.2 % (47-70); Platelet Count 234 K/mm3 (150-450); RBC Distribution Width CV 13.6 % (11.6-14.6); RBC Distribution Width SD 44.2 fl (35.1-43.9); Red Blood Count 4.54 M/mm3 (4.6-6.2); White Blood Count 10.4 K/mm3 (4.4-11.0)
[2024-02-03 10:28] LABS: BUN 20 mg/dL (7-18); BUN/Creat Ratio 10.9 RATIO (10-20); Calcium,Total 9.2 mg/dL (8.5-10.1); Chloride 109 mmol/L (98-107); Creatinine, Serum 1.84 mg/dL (0.70-1.30); EST Glomerular Filtration Rate 40 mL/min (>60); Est Glom Filt Rate - Afr Amer 48 mL/min (>60); Glucose 122 mg/dL (74-106); Potassium 4.1 mmol/L (3.5-5.1); Sodium Level 140 mmol/L (136-145)
[2024-02-03 10:47] LABS: Protein, Urine (Random) 19.8 mg/dL (<11.9); Protein:Creat Ratio 171 mg/g CRE (0-200)
== END ==
LOC: OLS.SANC 05:00
PROVIDERS: PCP Family Medicine; Visit Provider Internal Medicine
DX: E11.9 Type 2 diabetes mellitus without complications (principal); I10 Essential (primary) hypertension; E78.5 Hyperlipidemia, unspecified; Z79.899 Other long term (current) drug therapy
CPT/HCPCS: 36415; 80069; 80178; 82570; 84156; 85025

== ENCOUNTER → 2024-03-02 05:00 | Outpatient (REF) | payer MEDICARE, MEDICAID, SELFPAY ==
[2024-03-02 08:16] LABS: Absolute Neutrophil Count 5.9 X10^3/uL (2.0-7.7); Basophil# 0.08 X10^3/uL; Basophil% 0.8 % (0-1); Eosinophil# 0.36 X10^3/uL; Eosinophils% 3.7 % (0-5); Hematocrit 39.9 % (40-54); Hemoglobin 13.1 g/dL (13.0-16.5); Lymphocyte % 24.6 % (19-41); Mean Corp Hgb Conc 32.8 g/dL (32-36); Mean Corpuscular Hgb 29.6 pg (27.0-32.0); Mean Corpuscular Volume 90.1 fL (80-94); Mean Platelet Vol. 9.6 fl (6.2-12.0); Monocyte# 0.97 X10^3/uL; Monocyte% 9.9 % (0-10); NRBC Flagged by Analyzer 0 % (0-5); Neutrophil # 5.91 X10^3/uL (2.7-7.7); Neutrophil % 60.6 % (47-70); Platelet Count 224 K/mm3 (150-450); RBC Distribution Width CV 13.5 % (11.6-14.6); RBC Distribution Width SD 44.4 fl (35.1-43.9); Red Blood Count 4.43 M/mm3 (4.6-6.2); White Blood Count 9.8 K/mm3 (4.4-11.0)
[2024-03-02 08:37] LABS: BUN 19 mg/dL (7-18); BUN/Creat Ratio 9.8 RATIO (10-20); Calcium,Total 9.3 mg/dL (8.5-10.1); Chloride 106 mmol/L (98-107); Creatinine, Serum 1.94 mg/dL (0.70-1.30); EST Glomerular Filtration Rate 38 mL/min (>60); Est Glom Filt Rate - Afr Amer 46 mL/min (>60); Glucose 119 mg/dL (74-106); Phosphorus 4.3 mg/dL (2.5-4.9); Potassium 3.7 mmol/L (3.5-5.1); Sodium Level 140 mmol/L (136-145)
[2024-03-02 08:48] LABS: Protein:Creat Ratio 143 mg/g CRE (0-200)
== END ==
LOC: OLS.SANC 05:00
PROVIDERS: PCP Family Medicine; Visit Provider Internal Medicine
DX: I10 Essential (primary) hypertension (principal); E11.9 Type 2 diabetes mellitus without complications; Z79.899 Other long term (current) drug therapy
CPT/HCPCS: 36415; 80069; 80178; 82570; 84156; 85025

== ENCOUNTER → 2024-03-05 | Outpatient (REF) | payer MEDICARE, MEDICAID, SELFPAY ==
[2024-03-05 10:36] LABS: Cholesterol 139 mg/dL (200); High Density Lipoprotein 33 mg/dL; Triglycerides 237 mg/dL; Very Low Density Lipoprotein 47 mg/dL (5-40)
== END ==
LOC: OLS.SANC 04:00
PROVIDERS: PCP Family Medicine; Referring Provider Family Medicine; Visit Provider Family Medicine
DX: E11.9 Type 2 diabetes mellitus without complications (principal); I10 Essential (primary) hypertension; E78.5 Hyperlipidemia, unspecified
CPT/HCPCS: 36415; 80061

== ENCOUNTER → 2024-03-27 | Outpatient (REF) | payer MEDICARE, MEDICAID, SELFPAY ==
[2024-03-27 09:46] LABS: Uric Acid 5.9 mg/dL (3.5-7.2)
== END ==
LOC: OLS.SANC 07:15
PROVIDERS: PCP Family Medicine; Visit Provider Family Medicine
DX: M31.31 Wegener's granulomatosis with renal involvement (principal); N18.30 Chronic kidney disease, stage 3 unspecified; E11.9 Type 2 diabetes mellitus without complications; E78.5 Hyperlipidemia, unspecified; I10 Essential (primary) hypertension
CPT/HCPCS: 36415; 84550

== ENCOUNTER → 2024-03-30 | Outpatient (REF) | payer MEDICARE, MEDICAID, SELFPAY ==
[2024-03-30 08:54] LABS: Absolute Lymphocyte Count 2.13 X10^3/uL (0.83-4.51); Absolute Neutrophil Count 6.6 X10^3/uL (2.0-7.7); Basophil# 0.12 X10^3/uL; Basophil% 1.2 % (0-1); Eosinophil# 0.42 X10^3/uL; Eosinophils% 4.1 % (0-5); Hematocrit 41.8 % (40-54); Hemoglobin 13.5 g/dL (13.0-16.5); Lymphocyte # 2.13 X10^3/ul (0.83-4.51); Lymphocyte % 20.6 % (19-41); Mean Corp Hgb Conc 32.3 g/dL (32-36); Mean Corpuscular Hgb 29.3 pg (27.0-32.0); Mean Corpuscular Volume 90.9 fL (80-94); Mean Platelet Vol. 9.4 fl (6.2-12.0); Monocyte% 9.7 % (0-10); NRBC Flagged by Analyzer 0 % (0-5); Neutrophil # 6.62 X10^3/uL (2.7-7.7); Neutrophil % 63.8 % (47-70); Platelet Count 253 K/mm3 (150-450); RBC Distribution Width CV 13.5 % (11.6-14.6); RBC Distribution Width SD 45.2 fl (35.1-43.9); White Blood Count 10.4 K/mm3 (4.4-11.0)
[2024-03-30 09:04] LABS: Albumin, Serum 3.2 g/dL (3.2-5.0); BUN 19 mg/dL (7-18); BUN/Creat Ratio 9.7 RATIO (10-20); Calcium,Total 9.5 mg/dL (8.5-10.1); Chloride 107 mmol/L (98-107); Creatinine, Serum 1.96 mg/dL (0.70-1.30); EST Glomerular Filtration Rate 37 mL/min (>60); Est Glom Filt Rate - Afr Amer 45 mL/min (>60); Glucose 128 mg/dL (74-106); Phosphorus 4.9 mg/dL (2.5-4.9); Potassium 3.7 mmol/L (3.5-5.1); Sodium Level 137 mmol/L (136-145)
[2024-03-30 09:40] LABS: Protein, Urine (Random) 10.2 mg/dL (<11.9); Protein:Creat Ratio 123 mg/g CRE (0-200)
== END ==
LOC: OLS.SANC 05:00
PROVIDERS: PCP Family Medicine; Visit Provider Internal Medicine
DX: E11.9 Type 2 diabetes mellitus without complications (principal); I10 Essential (primary) hypertension; Z79.899 Other long term (current) drug therapy
CPT/HCPCS: 36415; 80069; 80178; 82570; 84156; 85025

== ENCOUNTER → 2024-04-27 05:00 | Outpatient (REF) | payer MEDICARE, MEDICAID, SELFPAY ==
[2024-04-27 08:58] LABS: Absolute Lymphocyte Count 2.09 X10^3/uL (0.83-4.51); Absolute Neutrophil Count 6.8 X10^3/uL (2.0-7.7); Eosinophil# 0.36 X10^3/uL; Eosinophils% 3.5 % (0-5); Hematocrit 41.3 % (40-54); Hemoglobin 13.4 g/dL (13.0-16.5); Lymphocyte # 2.09 X10^3/ul (0.83-4.51); Lymphocyte % 20.2 % (19-41); Mean Corp Hgb Conc 32.4 g/dL (32-36); Mean Corpuscular Hgb 29.7 pg (27.0-32.0); Mean Corpuscular Volume 91.6 fL (80-94); Mean Platelet Vol. 9.7 fl (6.2-12.0); Monocyte# 0.95 X10^3/uL; Monocyte% 9.2 % (0-10); NRBC Flagged by Analyzer 0 % (0-5); Neutrophil # 6.82 X10^3/uL (2.7-7.7); Neutrophil % 65.7 % (47-70); Platelet Count 220 K/mm3 (150-450); RBC Distribution Width CV 13.2 % (11.6-14.6); RBC Distribution Width SD 44.3 fl (35.1-43.9); Red Blood Count 4.51 M/mm3 (4.6-6.2); White Blood Count 10.4 K/mm3 (4.4-11.0)
[2024-04-27 09:14] LABS: Albumin, Serum 3.2 g/dL (3.2-5.0); BUN 26 mg/dL (7-18); Calcium,Total 9.3 mg/dL (8.5-10.1); Chloride 106 mmol/L (98-107); Creatinine, Serum 2.17 mg/dL (0.70-1.30); EST Glomerular Filtration Rate 33 mL/min (>60); Est Glom Filt Rate - Afr Amer 40 mL/min (>60); Glucose 131 mg/dL (74-106); Phosphorus 4.3 mg/dL (2.5-4.9); Potassium 3.9 mmol/L (3.5-5.1); Sodium Level 139 mmol/L (136-145); Uric Acid 5.9 mg/dL (3.5-7.2)
== END ==
LOC: OLS.SANC 05:00
PROVIDERS: PCP Family Medicine; Visit Provider Internal Medicine
DX: E78.5 Hyperlipidemia, unspecified (principal); I12.9 Hypertensive chronic kidney disease with stage 1 through stage 4 chronic kidney disease, or unspecified chronic kidney disease; N18.30 Chronic kidney disease, stage 3 unspecified; Z79.899 Other long term (current) drug therapy; M31.31 Wegener's granulomatosis with renal involvement
CPT/HCPCS: 36415; 80069; 80178; 84550; 85025

== ENCOUNTER → 2024-05-25 | Outpatient (REF) | payer MEDICARE, MEDICAID, SELFPAY ==
[2024-05-25 09:20] LABS: Absolute Lymphocyte Count 2.11 X10^3/uL (0.83-4.51); Absolute Neutrophil Count 6.6 X10^3/uL (2.0-7.7); Eosinophil# 0.53 X10^3/uL; Eosinophils% 5.2 % (0-5); Hemoglobin 13.6 g/dL (13.0-16.5); Lymphocyte # 2.11 X10^3/ul (0.83-4.51); Lymphocyte % 20.5 % (19-41); Mean Corp Hgb Conc 32.4 g/dL (32-36); Mean Corpuscular Hgb 29.8 pg (27.0-32.0); Mean Corpuscular Volume 91.9 fL (80-94); Mean Platelet Vol. 9.6 fl (6.2-12.0); Monocyte# 0.86 X10^3/uL; Monocyte% 8.4 % (0-10); NRBC Flagged by Analyzer 0 % (0-5); Neutrophil # 6.62 X10^3/uL (2.7-7.7); Neutrophil % 64.4 % (47-70); Platelet Count 243 K/mm3 (150-450); RBC Distribution Width CV 13.1 % (11.6-14.6); RBC Distribution Width SD 43.5 fl (35.1-43.9); Red Blood Count 4.57 M/mm3 (4.6-6.2); White Blood Count 10.3 K/mm3 (4.4-11.0)
[2024-05-25 09:25] LABS: Albumin, Serum 3.1 g/dL (3.2-5.0); BUN 23 mg/dL (7-18); BUN/Creat Ratio 10.6 RATIO (10-20); Calcium,Total 9.6 mg/dL (8.5-10.1); Chloride 108 mmol/L (98-107); Creatinine, Serum 2.17 mg/dL (0.70-1.30); EST Glomerular Filtration Rate 33 mL/min (>60); Est Glom Filt Rate - Afr Amer 40 mL/min (>60); Glucose 126 mg/dL (74-106); Phosphorus 4.7 mg/dL (2.5-4.9); Potassium 4.1 mmol/L (3.5-5.1); Sodium Level 140 mmol/L (136-145)
== END ==
LOC: OLS.SANC 04:00
PROVIDERS: PCP Family Medicine; Referring Provider Family Medicine; Visit Provider Family Medicine
DX: E11.9 Type 2 diabetes mellitus without complications (principal); E78.5 Hyperlipidemia, unspecified; I10 Essential (primary) hypertension; Z79.899 Other long term (current) drug therapy
CPT/HCPCS: 36415; 80069; 80178; 85025

== ENCOUNTER → 2024-05-28 | Outpatient (REF) | payer MEDICARE, MEDICAID, SELFPAY ==
[2024-05-28 08:04] LABS: Protein, Urine (Random) 20.5 mg/dL (<11.9); Protein:Creat Ratio 135 mg/g CRE (0-200)
== END ==
LOC: OLS.SANC 05:55
PROVIDERS: PCP Family Medicine; Visit Provider Family Medicine
DX: E11.9 Type 2 diabetes mellitus without complications (principal); I10 Essential (primary) hypertension; E78.5 Hyperlipidemia, unspecified; Z79.899 Other long term (current) drug therapy
CPT/HCPCS: 82570; 84156

== ENCOUNTER → 2024-06-08 | Outpatient (REF) | payer MEDICARE, MEDICAID, SELFPAY ==
[2024-06-08 08:20] LABS: Hemoglobin A1c 5.9 % (3.8-5.6)
== END ==
LOC: OLS.SANC 05:00
PROVIDERS: PCP Family Medicine; Referring Provider Family Medicine; Visit Provider Family Medicine
DX: E11.9 Type 2 diabetes mellitus without complications (principal); E78.5 Hyperlipidemia, unspecified; I10 Essential (primary) hypertension
CPT/HCPCS: 36415; 83036

== ENCOUNTER → 2024-06-22 | Outpatient (REF) | payer MEDICARE, MEDICAID, SELFPAY ==
[2024-06-22 08:42] LABS: Absolute Lymphocyte Count 2.09 X10^3/uL (0.83-4.51); Absolute Neutrophil Count 5.3 X10^3/uL (2.0-7.7); Basophil% 1.1 % (0-1); Eosinophil# 0.48 X10^3/uL; Eosinophils% 5.4 % (0-5); Hematocrit 40.7 % (40-54); Hemoglobin 13.1 g/dL (13.0-16.5); Lymphocyte # 2.09 X10^3/ul (0.83-4.51); Lymphocyte % 23.7 % (19-41); Mean Corp Hgb Conc 32.2 g/dL (32-36); Mean Corpuscular Hgb 29.5 pg (27.0-32.0); Mean Corpuscular Volume 91.7 fL (80-94); Mean Platelet Vol. 9.5 fl (6.2-12.0); Monocyte# 0.81 X10^3/uL; Monocyte% 9.2 % (0-10); NRBC Flagged by Analyzer 0 % (0-5); Neutrophil # 5.32 X10^3/uL (2.7-7.7); Neutrophil % 60.3 % (47-70); Platelet Count 229 K/mm3 (150-450); RBC Distribution Width SD 43.2 fl (35.1-43.9); Red Blood Count 4.44 M/mm3 (4.6-6.2); White Blood Count 8.8 K/mm3 (4.4-11.0)
[2024-06-22 08:59] LABS: Albumin, Serum 3.1 g/dL (3.2-5.0); BUN 18 mg/dL (7-18); BUN/Creat Ratio 8.5 RATIO (10-20); Calcium,Total 9.4 mg/dL (8.5-10.1); Chloride 110 mmol/L (98-107); Creatinine, Serum 2.12 mg/dL (0.70-1.30); EST Glomerular Filtration Rate 34 mL/min (>60); Est Glom Filt Rate - Afr Amer 41 mL/min (>60); Glucose 106 mg/dL (74-106); Phosphorus 4.2 mg/dL (2.5-4.9); Potassium 4.3 mmol/L (3.5-5.1); Sodium Level 141 mmol/L (136-145)
== END ==
LOC: OLS.SANC 05:00
PROVIDERS: PCP Family Medicine; Visit Provider Family Medicine
DX: E11.22 Type 2 diabetes mellitus with diabetic chronic kidney disease (principal); I12.9 Hypertensive chronic kidney disease with stage 1 through stage 4 chronic kidney disease, or unspecified chronic kidney disease; E78.5 Hyperlipidemia, unspecified; N18.30 Chronic kidney disease, stage 3 unspecified; Z79.899 Other long term (current) drug therapy
CPT/HCPCS: 36415; 80069; 80178; 85025

== ENCOUNTER → 2024-06-27 | Outpatient (REF) | payer MEDICARE, MEDICAID, SELFPAY ==
[2024-06-27 08:44] LABS: Uric Acid 5.5 mg/dL (3.5-7.2)
== END ==
LOC: OLS.SANC 05:00
PROVIDERS: PCP Family Medicine; Visit Provider Internal Medicine
DX: E79.2 Myoadenylate deaminase deficiency (principal)
CPT/HCPCS: 36415; 84550

== ENCOUNTER → 2024-06-29 | Outpatient (REF) | payer MEDICARE, MEDICAID, SELFPAY ==
[2024-06-29 08:55] LABS: AST(SGOT) 11 U/L (15-37); Alanine Aminotransfer ALT/SGPT 22 U/L (16-61); Albumin, Serum 3.2 g/dL (3.2-5.0); Alkaline Phosphatase 93 U/L (45-117); Globulin 3.1 g/dL (2.2-4.2); Protein, Total 6.3 g/dL (6.4-8.2)
== END ==
LOC: OLS.SANC 05:00
PROVIDERS: PCP Family Medicine; Visit Provider Family Medicine
DX: E11.9 Type 2 diabetes mellitus without complications (principal); M31.31 Wegener's granulomatosis with renal involvement
CPT/HCPCS: 36415; 80076

== ENCOUNTER → 2024-07-31 | Outpatient (REF) | payer MEDICARE, MEDICAID, SELFPAY | LOC: OLS.SANC 05:00 | PROVIDERS: PCP Family Medicine; Visit Provider Family Medicine | DX: E11.9 Type 2 diabetes mellitus without complications (principal); I10 Essential (primary) hypertension; E78.5 Hyperlipidemia, unspecified; F25.0 Schizoaffective disorder, bipolar type; Z79.899 Other long term (current) drug therapy | CPT/HCPCS: 36415; 82306 ==

== ENCOUNTER → 2024-08-10 05:00 | Outpatient (REF) | payer MEDICARE, MEDICAID, SELFPAY ==
[2024-08-10 09:34] LABS: Cholesterol 148 mg/dL (200); High Density Lipoprotein 41 mg/dL; Triglycerides 133 mg/dL; Very Low Density Lipoprotein 27 mg/dL (5-40)
== END ==
LOC: OLS.SANC 05:00
PROVIDERS: PCP Family Medicine; Visit Provider Internal Medicine
DX: E11.9 Type 2 diabetes mellitus without complications (principal); I10 Essential (primary) hypertension; E78.5 Hyperlipidemia, unspecified; F20.9 Schizophrenia, unspecified; F31.2 Bipolar disorder, current episode manic severe with psychotic features
CPT/HCPCS: 36415; 80061; 80178

== ENCOUNTER → 2024-08-27 | Outpatient (REF) | payer MEDICARE, MEDICAID, SELFPAY ==
[2024-08-27 09:00] LABS: Uric Acid 6.3 mg/dL (3.5-7.2)
== END ==
LOC: OLS.SANC 05:00
PROVIDERS: PCP Family Medicine; Visit Provider Family Medicine
DX: M1A.00X0 Idiopathic chronic gout, unspecified site, without tophus (tophi) (principal)
CPT/HCPCS: 36415; 84550

== ENCOUNTER → 2024-09-12 | Outpatient (REF) | payer MEDICARE, MEDICAID, SELFPAY ==
[2024-09-13 08:48] LABS: Protein, Urine (Random) 11.9 mg/dL (<11.9); Protein:Creat Ratio 97 mg/g CRE (0-200)
== END ==
LOC: OLS.SANC 22:30
PROVIDERS: PCP Family Medicine; Visit Provider Family Medicine
DX: E11.9 Type 2 diabetes mellitus without complications (principal); I10 Essential (primary) hypertension; E78.5 Hyperlipidemia, unspecified; Z79.899 Other long term (current) drug therapy
CPT/HCPCS: 82570; 84156

== ENCOUNTER → 2024-09-12 | Outpatient (REF) | payer MEDICARE, MEDICAID, SELFPAY ==
[2024-09-12 08:14] LABS: Absolute Lymphocyte Count 2.84 X10^3/uL (0.83-4.51); Absolute Neutrophil Count 5.3 X10^3/uL (2.0-7.7); Eosinophil# 0.39 X10^3/uL; Hematocrit 39.6 % (40-54); Lymphocyte # 2.84 X10^3/ul (0.83-4.51); Lymphocyte % 29.3 % (19-41); Mean Corp Hgb Conc 32.8 g/dL (32-36); Mean Corpuscular Hgb 29.8 pg (27.0-32.0); Mean Corpuscular Volume 90.8 fL (80-94); Mean Platelet Vol. 9.7 fl (6.2-12.0); Monocyte# 0.98 X10^3/uL; Monocyte% 10.1 % (0-10); NRBC Flagged by Analyzer 0 % (0-5); Neutrophil # 5.34 X10^3/uL (2.7-7.7); Neutrophil % 55.2 % (47-70); Platelet Count 243 K/mm3 (150-450); RBC Distribution Width CV 13.2 % (11.6-14.6); RBC Distribution Width SD 43.3 fl (35.1-43.9); Red Blood Count 4.36 M/mm3 (4.6-6.2); White Blood Count 9.7 K/mm3 (4.4-11.0)
[2024-09-12 08:32] LABS: AST(SGOT) 8 U/L (15-37); Alanine Aminotransfer ALT/SGPT 19 U/L (16-61); Alkaline Phosphatase 87 U/L (45-117); Anion Gap 6 (5-15); BUN 23 mg/dL (7-18); BUN/Creat Ratio 10.4 RATIO (10-20); Calcium,Total 9.3 mg/dL (8.5-10.1); Chloride 109 mmol/L (98-107); Creatinine, Serum 2.22 mg/dL (0.70-1.30); EST Glomerular Filtration Rate 32 mL/min (>60); Est Glom Filt Rate - Afr Amer 39 mL/min (>60); Globulin 2.9 g/dL (2.2-4.2); Glucose 122 mg/dL (74-106); Phosphorus 4.7 mg/dL (2.5-4.9); Potassium 3.9 mmol/L (3.5-5.1); Protein, Total 5.9 g/dL (6.4-8.2); Sodium Level 142 mmol/L (136-145)
== END ==
LOC: OLS.SANC 05:00
PROVIDERS: PCP Family Medicine; Visit Provider Family Medicine
DX: Z79.899 Other long term (current) drug therapy (principal)
CPT/HCPCS: 36415; 80053; 84100; 85025

== ENCOUNTER → 2024-09-27 | Outpatient (REF) | payer MEDICARE, MEDICAID, SELFPAY ==
[2024-09-27 08:55] LABS: Uric Acid 5.4 mg/dL (3.5-7.2)
== END ==
LOC: OLS.SANC 05:00
PROVIDERS: PCP Family Medicine; Visit Provider Family Medicine
DX: E11.22 Type 2 diabetes mellitus with diabetic chronic kidney disease (principal); E78.5 Hyperlipidemia, unspecified; M31.31 Wegener's granulomatosis with renal involvement; N18.30 Chronic kidney disease, stage 3 unspecified
CPT/HCPCS: 36415; 84550

== ENCOUNTER → 2024-11-15 | Outpatient (REF) | payer MEDICARE, MEDICAID, SELFPAY ==
[2024-11-15 09:35] LABS: Absolute Lymphocyte Count 2.67 X10^3/uL (0.83-4.51); Absolute Neutrophil Count 6.8 X10^3/uL (2.0-7.7); Basophil# 0.13 X10^3/uL; Basophil% 1.2 % (0-1); Eosinophil# 0.52 X10^3/uL; Eosinophils% 4.6 % (0-5); Hematocrit 41.5 % (40-54); Hemoglobin 13.6 g/dL (13.0-16.5); Lymphocyte # 2.67 X10^3/ul (0.83-4.51); Lymphocyte % 23.8 % (19-41); Mean Corp Hgb Conc 32.8 g/dL (32-36); Mean Corpuscular Hgb 29.9 pg (27.0-32.0); Mean Corpuscular Volume 91.2 fL (80-94); Mean Platelet Vol. 9.5 fl (6.2-12.0); Monocyte% 9.8 % (0-10); NRBC Flagged by Analyzer 0 % (0-5); Neutrophil # 6.75 X10^3/uL (2.7-7.7); Neutrophil % 60.1 % (47-70); Platelet Count 257 K/mm3 (150-450); RBC Distribution Width CV 12.9 % (11.6-14.6); RBC Distribution Width SD 42.9 fl (35.1-43.9); Red Blood Count 4.55 M/mm3 (4.6-6.2); White Blood Count 11.2 K/mm3 (4.4-11.0)
[2024-11-15 10:04] LABS: Anion Gap 8 (5-15); BUN 23 mg/dL (7-18); Calcium,Total 9.6 mg/dL (8.5-10.1); Chloride 108 mmol/L (98-107); EST Glomerular Filtration Rate 31 mL/min (>60); Est Glom Filt Rate - Afr Amer 37 mL/min (>60); Glucose 114 mg/dL (74-106); Potassium 4.2 mmol/L (3.5-5.1); Sodium Level 140 mmol/L (136-145)
[2024-11-15 10:37] LABS: Microalbumin,Random Urine < 5.0 mg/L (NO RANGE EST.)
== END ==
LOC: OLS.SANC 05:00
PROVIDERS: PCP Family Medicine; Visit Provider Family Medicine
DX: E11.9 Type 2 diabetes mellitus without complications (principal); F20.9 Schizophrenia, unspecified; I48.91 Unspecified atrial fibrillation
CPT/HCPCS: 36415; 80048; 80178; 82043; 82570; 85025

== ENCOUNTER → 2024-11-27 | Outpatient (REF) | payer MEDICARE, MEDICAID, SELFPAY ==
[2024-11-27 08:33] LABS: Uric Acid 5.8 mg/dL (3.5-7.2)
== END ==
LOC: OLS.SANC 05:00
PROVIDERS: PCP Family Medicine; Visit Provider Family Medicine
DX: M1A.00X0 Idiopathic chronic gout, unspecified site, without tophus (tophi) (principal)
CPT/HCPCS: 36415; 84550

== ENCOUNTER → 2024-12-28 | Outpatient (REF) | payer MEDICARE, MEDICAID, SELFPAY ==
[2024-12-28 08:35] LABS: Hematocrit 40.4 % (40-54); Hemoglobin 13.2 g/dL (13.0-16.5); Mean Corp Hgb Conc 32.7 g/dL (32-36); Mean Corpuscular Hgb 29.7 pg (27.0-32.0); Mean Platelet Vol. 9.3 fl (6.2-12.0); Platelet Count 248 K/mm3 (150-450); RBC Distribution Width CV 13.1 % (11.6-14.6); RBC Distribution Width SD 42.4 fl (35.1-43.9); Red Blood Count 4.44 M/mm3 (4.6-6.2); White Blood Count 10.5 K/mm3 (4.4-11.0)
[2024-12-28 08:56] LABS: ALB/GLOB Ratio 0.9 RATIO (0.9-2.4); AST(SGOT) 11 U/L (15-37); Alanine Aminotransfer ALT/SGPT 20 U/L (16-61); Alkaline Phosphatase 81 U/L (45-117); Anion Gap 6 (5-15); BUN 21 mg/dL (7-18); Calcium,Total 9.3 mg/dL (8.5-10.1); Chloride 110 mmol/L (98-107); Creatinine, Serum 2.09 mg/dL (0.70-1.30); EST Glomerular Filtration Rate 34 mL/min (>60); Est Glom Filt Rate - Afr Amer 42 mL/min (>60); Globulin 3.4 g/dL (2.2-4.2); Glucose 119 mg/dL (74-106); Potassium 4.3 mmol/L (3.5-5.1); Protein, Total 6.4 g/dL (6.4-8.2); Sodium Level 141 mmol/L (136-145); Uric Acid 5.8 mg/dL (3.5-7.2)
== END ==
LOC: OLS.SANC 05:00
PROVIDERS: PCP Family Medicine; Visit Provider Family Medicine
DX: E11.9 Type 2 diabetes mellitus without complications (principal); I10 Essential (primary) hypertension; E78.5 Hyperlipidemia, unspecified; F25.0 Schizoaffective disorder, bipolar type; M10.9 Gout, unspecified
CPT/HCPCS: 36415; 80053; 84550; 85027

== ENCOUNTER → 2025-01-02 | Outpatient (REF) | payer MEDICARE, MEDICAID, SELFPAY ==
[2025-01-02 09:08] LABS: Absolute Lymphocyte Count 2.41 X10^3/uL (0.83-4.51); Absolute Neutrophil Count 5.6 X10^3/uL (2.0-7.7); Basophil# 0.11 X10^3/uL; Basophil% 1.1 % (0-1); Eosinophil# 0.51 X10^3/uL; Eosinophils% 5.3 % (0-5); Hematocrit 40.5 % (40-54); Hemoglobin 13.4 g/dL (13.0-16.5); Lymphocyte # 2.41 X10^3/ul (0.83-4.51); Lymphocyte % 25.1 % (19-41); Mean Corp Hgb Conc 33.1 g/dL (32-36); Mean Corpuscular Volume 90.8 fL (80-94); Mean Platelet Vol. 9.5 fl (6.2-12.0); Monocyte% 9.4 % (0-10); NRBC Flagged by Analyzer 0 % (0-5); Neutrophil # 5.62 X10^3/uL (2.7-7.7); Neutrophil % 58.6 % (47-70); Platelet Count 247 K/mm3 (150-450); RBC Distribution Width CV 12.9 % (11.6-14.6); RBC Distribution Width SD 41.9 fl (35.1-43.9); Red Blood Count 4.46 M/mm3 (4.6-6.2); White Blood Count 9.6 K/mm3 (4.4-11.0)
[2025-01-02 10:19] LABS: AST(SGOT) 12 U/L (15-37); Alanine Aminotransfer ALT/SGPT 17 U/L (16-61); Albumin, Serum 3.1 g/dL (3.2-5.0); Alkaline Phosphatase 81 U/L (45-117); Anion Gap 7 (5-15); BUN 27 mg/dL (7-18); BUN/Creat Ratio 12.6 RATIO (10-20); Calcium,Total 9.4 mg/dL (8.5-10.1); Chloride 109 mmol/L (98-107); Creatinine, Serum 2.14 mg/dL (0.70-1.30); EST Glomerular Filtration Rate 34 mL/min (>60); Est Glom Filt Rate - Afr Amer 41 mL/min (>60); Globulin 3.1 g/dL (2.2-4.2); Glucose 115 mg/dL (74-106); Phosphorus 4.7 mg/dL (2.5-4.9); Potassium 4.1 mmol/L (3.5-5.1); Protein, Total 6.2 g/dL (6.4-8.2); Sodium Level 141 mmol/L (136-145)
== END ==
LOC: OLS.SANC 05:00
PROVIDERS: PCP Family Medicine; Visit Provider Family Medicine
DX: I12.9 Hypertensive chronic kidney disease with stage 1 through stage 4 chronic kidney disease, or unspecified chronic kidney disease (principal); N18.30 Chronic kidney disease, stage 3 unspecified; Z79.899 Other long term (current) drug therapy
CPT/HCPCS: 36415; 80053; 80178; 84100; 85025

== ENCOUNTER → 2025-01-03 | Outpatient (REF) | payer MEDICARE, MEDICAID, SELFPAY ==
[2025-01-03 10:26] LABS: Microalbumin,Random Urine < 5.0 mg/L (NO RANGE EST.)
== END ==
LOC: OLS.SANC 06:10
PROVIDERS: PCP Family Medicine; Visit Provider Family Medicine
DX: I12.9 Hypertensive chronic kidney disease with stage 1 through stage 4 chronic kidney disease, or unspecified chronic kidney disease (principal); N18.30 Chronic kidney disease, stage 3 unspecified; Z79.899 Other long term (current) drug therapy
CPT/HCPCS: 82043; 82570

== ENCOUNTER → 2025-01-25 | Outpatient (REF) | payer MEDICARE, MEDICAID, SELFPAY ==
[2025-01-25 09:51] LABS: Uric Acid 6.2 mg/dL (3.5-7.2)
== END ==
LOC: OLS.SANC 05:00
PROVIDERS: PCP Family Medicine; Visit Provider Family Medicine
DX: M1A.00X0 Idiopathic chronic gout, unspecified site, without tophus (tophi) (principal); E11.22 Type 2 diabetes mellitus with diabetic chronic kidney disease; I12.9 Hypertensive chronic kidney disease with stage 1 through stage 4 chronic kidney disease, or unspecified chronic kidney disease; E78.5 Hyperlipidemia, unspecified; N18.30 Chronic kidney disease, stage 3 unspecified
CPT/HCPCS: 36415; 84550

== ENCOUNTER → 2025-01-30 | Outpatient (REF) | payer MEDICARE, MEDICAID, SELFPAY ==
[2025-01-30 14:36] LABS: Lithium 0.71 mmol/L (0.60-1.20)
== END ==
LOC: OLS.SANC 05:00
PROVIDERS: PCP Family Medicine; Visit Provider Family Medicine
DX: F25.0 Schizoaffective disorder, bipolar type (principal); Z79.899 Other long term (current) drug therapy
CPT/HCPCS: 36415; 80178

== ENCOUNTER → 2025-02-06 | Outpatient (REF) | payer MEDICARE, MEDICAID, SELFPAY ==
[2025-02-06 08:30] LABS: Hemoglobin A1c 5.8 % (<=5.6)
== END ==
LOC: OLS.SANC 05:00
PROVIDERS: PCP Family Medicine; Visit Provider Internal Medicine
DX: E11.9 Type 2 diabetes mellitus without complications (principal); E78.5 Hyperlipidemia, unspecified; I10 Essential (primary) hypertension
CPT/HCPCS: 36415; 83036

== ENCOUNTER → 2025-02-11 | Outpatient (REF) | payer MEDICARE, MEDICAID, SELFPAY ==
[2025-02-11 09:04] LABS: Cholesterol 141 mg/dL (<=200); High Density Lipoprotein 31 mg/dL; Low Density Lipoprotein Calc. 67 mg/dL; Triglycerides 215 mg/dL; Very Low Density Lipoprotein 43 mg/dL (5-40); cholesterol:hdl ratio screen 4.53
== END ==
LOC: OLS.SANC 05:00
PROVIDERS: PCP Family Medicine; Visit Provider Internal Medicine
DX: E78.5 Hyperlipidemia, unspecified (principal)
CPT/HCPCS: 36415; 80061

== ENCOUNTER → 2025-02-25 | Outpatient (REF) | payer MEDICARE, MEDICAID, SELFPAY ==
[2025-02-25 09:17] LABS: Uric Acid 6.3 mg/dL (3.5-7.2)
== END ==
LOC: OLS.SANC 05:00
PROVIDERS: PCP Family Medicine; Visit Provider Family Medicine
DX: Z00.00 Encounter for general adult medical examination without abnormal findings (principal)
CPT/HCPCS: 36415; 84550

== ENCOUNTER → 2025-02-27 | Outpatient (REF) | payer MEDICARE, MEDICAID, SELFPAY ==
[2025-02-27 07:59] LABS: Absolute Lymphocyte Count 1.42 X10^3/uL (0.83-4.51); Absolute Neutrophil Count 17.7 X10^3/uL (2.0-7.7); Basophil# 0.05 X10^3/uL; Basophil% 0.2 % (0-1); Hemoglobin 13.1 g/dL (13.0-16.5); Lymphocyte # 1.42 X10^3/ul (0.83-4.51); Lymphocyte % 6.9 % (19-41); Mean Corp Hgb Conc 33.6 g/dL (32-36); Mean Corpuscular Hgb 30.1 pg (27.0-32.0); Mean Corpuscular Volume 89.7 fL (80-94); Mean Platelet Vol. 9.3 fl (6.2-12.0); Monocyte# 1.33 X10^3/uL; Monocyte% 6.4 % (0-10); NRBC Flagged by Analyzer 0 % (0-5); Neutrophil # 17.66 X10^3/uL (2.7-7.7); Neutrophil % 85.6 % (47-70); Platelet Count 274 K/mm3 (150-450); RBC Distribution Width CV 13.3 % (11.6-14.6); RBC Distribution Width SD 43.8 fl (35.1-43.9); Red Blood Count 4.35 M/mm3 (4.6-6.2); White Blood Count 20.6 K/mm3 (4.4-11.0)
[2025-02-27 08:18] LABS: ALB/GLOB Ratio 1.6 RATIO (0.9-2.4); AST(SGOT) 11 U/L (<=37); Alanine Aminotransfer ALT/SGPT 13 U/L (<=46); Albumin, Serum 3.9 g/dL (3.4-4.8); Alkaline Phosphatase 66 U/L (40-129); Anion Gap 12 (5-15); BUN 29 mg/dL (4-19); BUN/Creat Ratio 12.7 RATIO (10-20); Calcium,Total 9.8 mg/dL (7.6-11.0); Carbon Dioxide 20.5 mmol/L (21.0-32.0); Chloride 105 mmol/L (98-108); Creatinine, Serum 2.32 mg/dL (0.70-1.20); EST Glomerular Filtration Rate 31 (>60); Globulin 2.4 g/dL (2.2-4.2); Glucose 134 mg/dL (70-99); Potassium 4.4 mmol/L (3.3-5.1); Protein, Total 6.2 g/dL (5.9-8.4); Sodium Level 138 mmol/L (133-145); Total Bilirubin 0.19 mg/dL (0.00-1.30)
== END ==
LOC: OLS.SANC 05:00
PROVIDERS: PCP Family Medicine; Visit Provider Internal Medicine
DX: D64.9 Anemia, unspecified (principal); E11.9 Type 2 diabetes mellitus without complications; E78.5 Hyperlipidemia, unspecified; Z79.899 Other long term (current) drug therapy
CPT/HCPCS: 36415; 80053; 80178; 82248; 85025

== ENCOUNTER → 2025-03-04 | Outpatient (REF) | payer MEDICARE, MEDICAID, SELFPAY ==
[2025-03-05 10:28] LABS: Microalbumin,Random Urine < 12.0 mg/L (NO RANGE EST.); Microalbumin:Creatinine Ratio UNABLE TO CALCULATE mg/g CRE
== END ==
LOC: OLS.SANC 22:30
PROVIDERS: PCP Family Medicine; Visit Provider Family Medicine
DX: D64.9 Anemia, unspecified (principal); E11.9 Type 2 diabetes mellitus without complications; E78.5 Hyperlipidemia, unspecified; Z79.899 Other long term (current) drug therapy
CPT/HCPCS: 82043; 82570

== ENCOUNTER → 2025-03-27 05:00 | Outpatient (REF) | payer MEDICARE, MEDICAID, SELFPAY ==
[2025-03-27 10:13] LABS: Uric Acid 6.5 mg/dL (3.5-7.2)
== END ==
LOC: OLS.SANC 05:00
PROVIDERS: PCP Family Medicine; Visit Provider Internal Medicine
DX: M1A.00X0 Idiopathic chronic gout, unspecified site, without tophus (tophi) (principal)
CPT/HCPCS: 36415; 84550

== ENCOUNTER → 2025-04-01 | Outpatient (REF) | payer MEDICARE, MEDICAID, SELFPAY ==
[2025-04-01 09:05] LABS: Lithium 0.64 mmol/L (0.60-1.20)
== END ==
LOC: OLS.SANC 05:00
PROVIDERS: PCP Family Medicine; Visit Provider Family Medicine
DX: E11.9 Type 2 diabetes mellitus without complications (principal); E78.5 Hyperlipidemia, unspecified; F25.0 Schizoaffective disorder, bipolar type
CPT/HCPCS: 36415; 80178

== ENCOUNTER → 2025-04-24 05:00 | Outpatient (REF) | payer MEDICARE, MEDICAID, SELFPAY ==
--- OUTSIDE RECORDS SUMMARY | 2025-04-24 04:07 | XMS RPT_ITS | CCD ---
Author Organization [facility] CliniSytn Care Team Providers Care Animal Caregiver Name Role Phone HODA BERNABE MD Admitting Unavailable HODA BERNABE MD Attending Unavailable HODA BERNABE MD Primary Care Unavailable NO, DOCTOR ON Consulting Unavailable HODA BERNABE MD Admitting Unavailable HODA BERNABE MD Attending Unavailable HODA BERNABE MD Primary Care Unavailable NO, DOCTOR ON Consulting Unavailable Unavailable Primary Care Provider Unavailabl e [place] Bal MD Primary Care Provider Anthony Olivares MD Unavailable Anthony Olivares MD Unavailable Elgin Bal MD Primary Care Provider Anthony Olivares MD Unavailable Anthony Olivares MD Unavailable Elgin Bal MD Primary Care Provider Elgin Bal MD Primary Care Provider Anthony Olivares MD Unavailable Anthony Olivares MD Unavailable Anthony Olivares MD Unavailable Anthony Olivares MD Unavailable Alfredo Phipps MD Primary Care Provider Alfredo Phipps MD Primary Care Provider ALFREDO PHIPPS Primary Care Unavaila DOROTA Owusu Referring Unavailable DOROTA SMITH Attending Unavailable ANTHONY OLIVARES Attending Unavailable SELF Referring Unavailable KATSAROS, ALFREDO [facility] Unavaila RONNY Jaramillo Attending Unavailabl e ANTHONY OLIVARES Referring Unavailable KATSAROS, ALFREDO [facility] Primary Care Unavaila ANTHONY Shell Referring Unavailable KATSAROS, [facility]ED[facility] Primary Care UnavailANTHONY Aleman Attending Unavailable KATSAROS, ALFREDO [facility] Primary Care Unavailterra Bal MD, Dr. Eisenberg Primary Care Provider [phone] Adam Marley Attending Provider Unavailterra Bal MD, Dr. Eisenberg Primary Care Provider [phone] Adam Marley Attending Provider Unavaila catracho CHANDLER, Alfredo Attending Provider Unavailab ANTHONY Ragland Referring Unavailable KATSAROS, ALFREDO [facility] Primary Care Unavaila ANTHONY Shell Referring Unavailable KATSAROS, ALFREDO SPICER Primary Care UnavailANTHONY Aleman Referring Unavailable KATSAROS, ALFREDO [facility] Primary Care Unavailterra Bal MD, Dr. Eisenberg Primary Care Provider [phone] Adam Marley Attending Provider UnavailDr. Elgin Russell MD Primary Care Provider [phone] Adam Marley Attending Provider Unavailterra Bal [place] Primary Care Unavailable Gunning RAMESH, Adam Attending Unavailable Gunning RAMESH, Adam Attending Unavailable [place], [facility] Primary Care Unavailable Gunning RAMESH, Adam Attending Unavailable [place], [facility] Primary Care Unavailable Katsaros Alfredo CHANDLER Attending Unavailable [place], [facility] Primary Care Unavailable Katsaros Alfredo CHANDLER Attending Unavailable [place], [facility] Primary Care Unavailable [place], [facility] Primary Care Unavailable Gunning RAMESH, Adam Attending Unavailable Gunning RAMESH, Adam Attending Unavailable [place], [facility] Primary Care Unavailable Gunning RAMESH, Adam Attending Unavailable [place], [facility] Primary Care Unavailable Katsaros RAMESH, Alfredo Attending Unavailable [place], [facility] Primary Care Unavailable Gunning RAMESH, Adam Attending Unavailable [place]and[place] RAMESH, Adam Referring Unavailable [place], [facility] Primary Care Unavailable Gunning RAMESH, Adam Attending Unavailable [place], [facility] Primary Care Unavailable Gunning RAMESH, Adam Attending Unavailable [place], [facility] Primary Care Unavailable Gunning RAMESH, Adam Referring Unavailable [place], [facility] Primary Care Unavailable Katsaros RAMESH, Alfredo Attending Unavailable [place], [facility] Primary Care Unavailable Katsaros RAMESH, Alfredo Attending Unavailable Gunning OLS, Adam Attending Unavailable [place], [facility] Primary Care Unavailable Gunning OLS, Adam Attending Unavailable [place], [facility] Primary Care Unavailable Gunning OLS, Adam Attending Unavailable [place], [facility] Primary Care Unavailable Gunning OLS, Adam Attending Unavailable [place], [facility] Primary Care Unavailable Gunning OLS, Adam Attending Unavailable [place], [facility] Primary Care Unavailable Katsaros OLS, Peter Attending Unavailable [place], [facility] Primary Care Unavailable Gunning OLS, Adam Attending Unavailable [place], [facility] Primary Care Unavailable Katsaros OLS, Peter Attending Unavailable [place], [facility] Primary Care Unavailable Gunning OLS, Adam Attending Unavailable [place], [facility] Primary Care Unavailable Gunning OLS, Adam Attending Unavailable [place], [facility] Primary Care Unavailable Gunning OLS, Adam Attending Unavailable [place], [facility] Primary Care Unavailable [place], [facility] Primary Care Unavailable Gunning OLS, Adam Attending Unavailable Gunning OLS, Adam Attending Unavailable [place], [facility] Primary Care Unavailable Allergies Allergy Classification Reported Allergen(s) Allergy Type Date of Onset Reaction(s) Facility Anti-Epileptic Agents (1 source) lamoTRIgine Drug Allergy 8 [facility] Work Phone: Bee pollen (1 source) Bee pollen Drug Allergy 0 Other: See Comments [facility] Corticosteroids (1 source) fluticasone Drug Allergy 3 Other: See Comments [facility] Work Phone: OLANZapine (1 source) OLANZapine Drug Allergy 7 [facility] (20 sources) Bee pollen; Translations: [BEE POLLEN] Drug Allergy 0 Other: See Comments [place], [place] (20 sources) fluticasone Drug Allergy 0 [place], [place] (20 sources) lamoTRIgine; Translations: [LAMOTRIGINE] Drug Allergy 8 [place], [place] (20 sources) OLANZapine; Translations: [OLANZAPINE] Drug Allergy 7 [place] (20 sources) fluticasone; Translations: [FLUTICASONE PROPIONATE] Drug Allergy 3 Other: See Comments [facility] Work Phone: (1 source) fluticasone Drug Allergy 0 [facility] (1 source) lamoTRIgine Drug Allergy 9 [facility] (1 source) OLANZapine Drug Allergy 0 [facility] Medications Current Medications Medication Drug Class(es) Dates Sig (Normalized) Sig (Original) acetaminophen 300 mg / codeine phosphate 60 mg oral tablet (18 sources) Opioid Agonist take 1 tablet by mouth every eight hours as needed acetaminophen-cod eine (TYLENOL-COD #4) 300-60 mg per tablet Take 1 tablet by mouth every 8 hours as needed. 500mg Active Comment on above: Take 1 tablet by donovan th every 8 hours as needed. 500mg [id number] 60 actuat albuterol 0.09 mg/actuat metered dose inhaler (20 sources) beta2-Adrenergic Agonist Start: 04-02-2016 Albuterol Sulfate (Ventolin Hfa) 1 INHALER inhaler Active 1 - 2 NMA INHALATION EVERY 4 HOURS NEEDED as needed for Sob &/Or Wheezing April 02, 2016 12:00am Start: 04-02-2016 take 1 puff(s) by in halation every four hours as needed Albuterol Sulfate (Ventolin Hfa) 1 INHALER inhaler Active 1 - 2 PUFF INHALATION EVERY 4 HOURS NEEDED April 02, 2016 12:00am albuterol 0.833 mg/ml / ipratropium bromide 0.167 mg/ml inhalant solution (20 sources) Anticholinergic, beta2-Adrenergic Agonist Start: 10-30-2020 End: 11-01-2020 ipratropium-albuterol (DUONEB) nebulizer solution 1 ampule take 3 mL by inhalat ion every six hours as needed ipratropium-albuterol (DUONEB) 0.5 mg-3 mg(2.5 mg base)/3 mL nebu Inhale 3 mL as instructed every 6 hours as needed for wheezing/shortness of breath. Active Comment on above: Inhale 3 mL as instr ucted every 6 hours as needed for wheezing/shortness of breath. allopurinol 100 mg oral tablet (20 sources) Xanthine Oxidase Inhibitor Start: 022 take 0.5 tablet by mouth once daily allopurinol (ZYLOPRIM) 100 mg tablet Take 0.5 tablets by mouth once daily. 07/27/2022 Active Comment on above: Take 0.5 tablets by mouth once daily. aluminum hydroxide 40 mg/ml / magnesium hydroxide 40 mg/ml / simethicone 4 mg/ml oral suspension (20 sources) take 20 mL by mouth every six hours as needed aluminum-magnesium hydroxide-simethico ne (MAALOX,MYLANTA,MAG -AL PLUS) 200-200-20 mg/5 mL suspension Take 20 mL by mouth every 6 hours as needed. Active Comment on above: Take 5 mL by mouth e very 6 hours as needed. Take 20 mL by mouth every 6 hours as needed. amLODIPine 10 mg oral tablet (20 sources) Dihydropyridine Calcium Channel Shaq Start: take 1 tablet by mouth once daily Amlodipine 10 MG tablet Active 10 mg PO DAILY February 14, 2020 12:00am atorvastatin 10 mg oral tablet (20 sources) HMG-CoA Reductase Inhibitor Start: take 2 tablets by mouth at bedtime Atorvastatin 10 MG tablet Active 20 mg PO AT BEDTIME February 14, 2020 12:00am Start: 02-14-2020 take 20 mg by mouth at bedtime Atorvastatin Active 20 MG PO AT BEDTIME February 14, 2020 12:00am Start: 08-08-2019 take 1 tablet by donovan once daily atorvastatin (LIPITOR) 20 mg tablet Indications: Other hyperlipidemia Take 1 tablet by mouth once daily. 90 tablet 3 08/08/2019 Active Comment on above: Take 1 tablet by donovan once daily. cetirizine hydrochloride 10 mg oral tablet (1 source) Histamine-1 Receptor Antagonist Start: 0 take 5 mg by mouth once daily 5 mg, Oral, DAILY, First dose on Tue10/28/20 at 2000 Substituted for Loratadine (CLARITIN). cholecalciferol 1000 unt oral tablet (20 sources) Vitamin D Start: 0 take 2000 [IU] by mouth once daily 2,000 Units, Oral, DAILY, First dose on Tue10/28/20 at 2000 Maintenance Dose. Start: 02-14-2020 take 1 capsule by mo [facility] once daily Cholecalciferol (Vitamin D3) 2,000 UNIT capsule Active 2000 U PO DAILY February 14, 2020 12:00am cyclobenzaprine hydrochloride 10 mg oral tablet (20 sources) Muscle Relaxant Start: 08-02-2018 End: 08-27-2022 take 1 tablet by mouth three times daily as needed for muscle spasms Cyclobenzaprine 10 MG tablet Active 10 mg PO THREE TIMES A DAY as needed for Muscle Spasm February 14, 2020 12:00am Comment on above: Take 1 tablet by donovan th three times daily as needed. dexamethasone 6 mg oral tablet (2 sources) Corticosteroid Start: 10-29-2020 End: 11-08-2020 take 6 mg by mouth once daily 6 mg, Oral, DAILY, First dose on Tue10/29/20 at 0900, For 10 doses Start: 10-28-2020 End: 10-28-2020 dexamethasone (DECADRON) inj ection 6 mg dextromethorphan hydrobromide 2 mg/ml / guaiFENesin 20 mg/ml oral suspension (1 source) Uncompetitive B-sgsmww-E-aspartate Receptor Antagonist, Sigma-1 Agonist Start: 10-28-2020 take 5 mL by mouth every four hours as needed for cough 5 mL, Oral, EVERY 4 HOURS PRN, Cough, Starting Tue10/28/20 at 1936 docosahexaenoic acid 120 mg / eicosapentaenoic acid 180 mg oral capsule (1 source) take 1 capsule by mouth once daily [place]-3 1000 MG CAPS Take 1 capsule by mouth daily 0 Active famotidine 20 mg oral tablet (20 sources) Histamine-2 Receptor Antagonist Start: 10-28-2020 take 40 mg by mouth once daily 40 mg, Oral, DAILY, First dose on Tue10/28/20 at 1999 Start: 02-14-2020 take 1 tablet by donovan th once daily Famotidine 40 MG tablet Active 40 mg PO DAILY February 14, 2020 12:00am furosemide 20 mg oral tablet (20 sources) Loop Diuretic Start: 03-18-2021 take 1 tablet by mouth once daily furosemide (LASIX) 20 mg tablet Take 20 mg by mouth once daily. 03/18/2021 Active Start: 03-18-2021 take 1 tablet by donovan th once daily furosemide (LASIX) 40 mg tablet Take 40 mg by mouth once daily. 03/18/2021 Active Start: 10-31-2020 furosemide (LA SIX) tablet 60 mg Start: 10-28-2020 End: 10-29-2020 take 60 mg by mouth once daily 60 mg, Oral, DAILY, Fir st dose on Tue10/28/20 at 1999 Start: 02-14-2020 Furosemide 40 MG tablet Active 60 mg PO DAILY February 14, 2020 12:00am Start: 02-14-2020 take 60 mg by mouth once daily Furosemide Active 60 MG PO DAILY February 14, 2020 12:00am take 3 tablets by [facility] once daily furosemide (LASIX) 20 MG tablet Take 60 mg by mouth daily 0 Active Comment on above: Take 20 mg by mouth once daily. Take 40 mg by mouth once daily. 1 ml heparin sodium, porcine 5000 unt/ml prefilled syringe (3 sources) Unfractionated Heparin, Anti-coagulant Start: 10-29-2020 heparin (porcine) injection 5,000 Units Start: 10-29-2020 End: 10-29-2020 heparin 25,000 units in dext marlin 5% 250 mL infusion Start: 10-29-2020 End: 10-29-2020 heparin (porcine) injection 9,620 Units hydroxychloroquine sulfate 200 mg oral tablet (20 sources) Antimalarial, Antirheumatic Agent Start: 10-28-2020 take 1 tablet by mouth once daily 100 mg, Oral, DAILY, First dose on Tue10/28/20 at 2000 Do not crush or divide film-coated tablets hydrOXYchloroQUI NE (PLAQUENIL) 200 mg tablet Take 100 mg by mouth once daily. Active Comment on above: Take 100 mg by mouth once daily. lithium carbonate 150 mg oral capsule (20 sources) Start: 03-12-2021 take 1 capsule by mouth once daily lithium carbonate (ESKALITH) 150 mg capsule Take 150 mg by mouth once daily. 03/12/2021 Active Start: 03-06-2021 take 1 capsule by [facility] once daily lithium carbonate (ESKALITH) 300 mg capsule Take 300 mg by mouth once daily. 03/06/2021 Active Start: 10-28-2020 take 300 mg by mouth once tommy y 300 mg, Oral, NIGHTLY, First dose on Tue10/28/20 at 2100 Maintain adequate fluid and sodium intake Start: 04-02-2018 take 1 tablet by [facility] once daily at bedtime [place] Carbonate 300 MG tablet extended release Active 300 mg PO TWICE A DAY April 02, 2018 12:00am hs Comment on above: Take 150 mg by mouth . Take 300 mg by mouth . Take 150 mg by mouth once daily. Take 300 mg by mouth once daily. loratadine 10 mg oral tablet (20 sources) Start: 02-14-2020 take 1 tablet by mouth once daily Loratadine 10 MG tablet Active 10 mg PO DAILY February 14, 2020 12:00am take 1 capsule by mouth once berna ly loratadine (CLARITIN) 10 MG capsule Take 10 mg by mouth daily 0 Active Comment on above: Take 10 mg by mouth once daily. losartan potassium 50 mg oral tablet (20 sources) Angiotensin 2 Receptor Shaq Start: 02-26-2020 End: 10-29-2020 take 1 tablet by mouth once daily losartan (COZAAR) 50 mg tablet Take 1 tablet by mouth once daily. 90 tablet 3 02/26/2020 Active Start: 02-14-2020 take 1 tablet by mouth once da elaine Losartan 25 MG tablet Active 25 mg PO DAILY February 14, 2020 12:00am Comment on above: Take 1 tablet by donovan th once daily. magnesium hydroxide 240 mg/ml oral suspension (5 sources) take 10 mL by mouth once daily as needed magnesium hydroxide (MILK OF MAGNESIA CONCENTRATED) 2,400 mg/10 mL susp Take 10 mL by mouth once daily as needed. If no BM in 24 hours Active melatonin 3 mg oral tablet (20 sources) Start: 10-28-2020 take 3 mg by mouth once daily 3 mg, Oral, NIGHTLY, First dose on Tue10/28/20 at 2100 Start: 02-14-2020 take 1 tablet by donovan th at bedtime Melatonin 5 MG tablet,disintegrating Active 5 mg PO AT BEDTIME February 14, 2020 12:00am take 10 mg by mouth once daily at bedtime melatonin 3 mg capsules Take 10 mg by mouth daily at bedtime. Active take 1 tablet by donovan th once daily melatonin 10 mg tab Take 10 mg by mouth once daily. Active Comment on above: Take 10 mg by mouth daily at bedtime. Take 10 mg by mouth once daily. metFORMIN hydrochloride 1000 mg oral tablet (18 sources) Biguanide Start: 4 take 1 tablet by mouth twice daily metFORMIN (GLUCOPHAGE) 1,000 mg tablet Take 1 tablet by mouth two times a day. 12/20/2023 Active Comment on above: Take 1 tablet by donovan th two times a day. 24 hr metoprolol succinate 50 mg extended release oral tablet (20 sources) beta-Adrenergic Shaq Start: 0 End: 0 metoprolol succinate (TOPROL XL) extended release tablet 75 mg Start: 11-02-2020 metoprolol (LO PRESSOR) injection 5 mg Start: 08-01-2020 End: 11-02-2020 take 1 tablet by mouth once daily metoprolol succinate ER (TOPROL XL) 50 mg 24 hr tablet Take 1 tablet by mouth once daily. 30 tablet 11 08/01/2020 Active Start: 02-14-2020 take 1 tablet by donovan th once daily Metoprolol Succinate 25 MG tablet extended release 24 hr Active 25 mg PO DAILY February 14, 2020 12:00am HOLD FOR HR Comment on above: Take 1 tablet by donovan th once daily. omega-3 acid ethyl esters (fpc) 1000 mg oral capsule (1 source) Start: 10-28-2020 take 1 capsule by mouth once daily 1 capsule, Oral, DAILY, First dose on Tue10/28/20 at 2000 [place]-3 Fatty Acids-Fish Oil (20 sources) Start: 02-14-2020 [place]-3 Fatty Acids-Fish Oil Active 1 EACH PO DAILY February 14, 2020 10:03am Start: 02-14-2020 [place]-3 Fatty Acids-Fish Oil Active 1 EACH PO DAILY February 13, 2020 11:00pm Start: 02-14-2020 [place]-3 Fatty Acids-Fish Oil Active 1 EACH PO DAILY February 14, 2020 12:00am [place]-3 Fatty Acids-Fish Oil 1 EACH capsule (10 sources) Start: 02-14-2020 [place]-3 Fatty Acids-Fish Oil 1 EACH capsule Active 1 NMA PO DAILY February 14, 2020 12:00am Start: 02-14-2020 [place]-3 Fatty Acids-Fish Oil 1 EACH capsule Active 1 NMA PO DAILY February 13, 2020 11:00pm Ezaay-3-QIG-EPA-Fish Oil 1,0 00 mg (120 mg-180 mg) cap (20 sources) take 1 capsule by mouth once daily Qxqwt-1-SXY-EPA-Fish Oil 1,000 mg (120 mg-180 mg) cap Take 1 capsule by mouth once daily. Active take 1 capsule by mouth once berna ly Cvriq-7-OPL-EPA-Fish Oil 1,000 mg (120 mg- 180 mg) cap Take 1 capsule by mouth once daily. 0 Active Comment on above: Take 1 capsule by mo [facility] once daily. omeprazole 40 mg delayed release oral capsule (20 sources) Proton Pump Inhibitor Start: 08-10-2016 take 1 capsule by mouth once daily Omeprazole (Prilosec) 40 MG capsule Active 40 mg PO DAILY August 10, 2016 12:00am 7pm take 1 capsule by mouth once berna ly omeprazole (PRILOSEC) 20 mg capsule Take 20 mg by mouth once daily. Active Comment on above: Take 20 mg by mouth once daily. 24 hr paliperidone 6 mg extended release oral tablet (20 sources) Atypical Antipsychotic Start: 02-14-20 take 1 tablet by mouth once daily Paliperidone 6 MG tablet Active 6 mg PO DAILY February 14, 2020 12:00am Comment on above: Take 6 mg by mouth a s directed. pantoprazole 40 mg delayed release oral tablet (1 source) Proton Pump Inhibitor Start: 10-29-20 take 40 mg by mouth once daily before breakfast 40 mg, Oral, DAILY BEFORE BREAKFAST, First dose on Tue10/29/20 at 0700 Do not crush or break. Substituted for Omeprazole (PRILOSEC). polyethylene glycol [id number] mg powder for oral solution (1 source) Osmotic Laxative Start: 10-28-20 20 17 g, Oral, DAILY PRN, Constipation, Starting Tue10/28/20 at 1936 First line therapy for constipation Promethazine (1 source) Phenothiazine Start: 10-28-20 promethazine (PHENERGAN) tablet 12.5 mg 24 hr QUEtiapine 300 mg extended release oral tablet (20 sources) Atypical Antipsychotic Start: 10-28-20 take 600 mg by mouth once daily 600 mg, Oral, NIGHTLY, First dose on Tue10/28/20 at 2100 Do not crush or break. Start: 02-14-2020 take 2 tablets by mo uth once daily Quetiapine 300 MG tablet Active 600 mg PO DAILY February 14, 2020 12:00am Start: 02-14-2020 take 600 mg by mouth once tommy y Quetiapine Active 600 MG PO DAILY February 14, 2020 12:00am Start: 02-19-2019 End: 08-27-2022 take 1 tablet by mouth once daily at bedtime QUEtiapine ER (SEROQUEL XR) 200 mg 24 hr tablet Take 1 tablet by mouth daily at bedtime. 90 tablet 1 02/19/2019 08/27/2022 Discontinued (Course of therapy completed) take 500 mg by mouth once daily quetiapine fumarate (SEROQUEL XR ORAL) Take 500 mg by mouth once daily. Active take 500 mg by mouth once daily quetiapine fumarate (SEROQUEL XR ORAL) Take 500 mg by mouth once daily. 0 Active take 2 tablets by mo uth once daily QUEtiapine (SEROQUEL XR) 300 MG extended release tablet Take 600 mg by mouth nightly 0 Active Comment on above: Take 1 tablet by donovan th daily at bedtime. Take 500 mg by mouth once daily. riTUXimab 1,000 mg in NaCl 0.9% 250 mL (20 sources) Start: 03-31-2022 riTUXimab 1,000 mg in NaCl 0.9% 250 mL Indications: Granulomatosis with polyangiitis, unspecified whether renal involvement (HCC) Inject 1,000 mg intravenously as directed for 1 dose. 1 Bag 03/31/2022 Active Start: 03-31-2022 riTUXimab 1,00 0 mg in NaCl 0.9% 250 mL Indications: Granulomatosis with polyangiitis, unspecified whether renal involvement (HCC) Inject 1,000 mg intravenously as directed for 1 dose. 1 Bag 0 03/31/2022 Active Comment on above: Inject 1,000 mg intr avenously as directed for 1 dose. 3 ml sodium chloride 9 mg/ml injection (6 sources) Start: 10-28-2020 10 mL, Intravenous, EVERY 12 HOURS SCHEDULED (2 times per day), First dose on Tue10/28/20 at 2100 Start: 10-28-2020 take 10 mL intraveno us route once as needed 10 mL, Intravenous, PRN, Line Care, After every IV line use, Starting Tue10/28/20 at 1936 Start: 10-28-2020 End: 10-28-2020 0.9 % sodium chloride bolus Start: 10-28-2020 End: 10-29-2020 0.9 % sodium chloride infusi on sulfamethoxazole 800 mg / trimethoprim 160 mg oral tablet (20 sources) Dihydrofolate Reductase Inhibitor Antibacterial, Sulfonamide Antimicrobial Start: 10-29-2020 sulfamethoxazole-trimethopri m (BACTRIM DS;SEPTRA DS) 800-160 MG per tablet 1 tablet Start: 02-14-2020 Sulfamethoxazo le-Trimethoprim 1 EACH tablet Active 1 NMA PO MOWEFR February 14, 2020 12:00am Start: 02-14-2020 Sulfamethoxazo le-Trimethoprim Active 1 EACH PO MOWEFR February 14, 2020 12:00am take 1 tablet by donovan th three times weekly sulfamethoxazole-trimethoprim (BACTRIM DS,SEPTRA DS) 800-160 mg per tablet Take 1 tablet by mouth three times a week. Active Comment on above: Take 1 tablet by donovan three times a week. Completed/Discontinued Medications Medication Drug Class(es) Dates Sig (Normalized) Sig (Original) acetaminophen 500 mg oral tablet (20 sources) Start: 02-26-2025 End: 02-26-2025 take 1 dose by mouth once 1,000 mg, ORAL, ONCE, 1 dose, On Tue02/26/25 at 0930 Start: 02-12-2025 End: 02-12-2025 take 1 dose by mouth once 1,000 mg, ORAL, ONCE, 1 dose , On Tue02/12/25 at 0930 Start: 08-09-2024 End: 08-09-2024 take 1 dose by mouth once 1,000 mg, ORAL, ONCE, 1 dose , On [place] 08/09/24 at 0700 Start: 09-29-2021 End: 03-30-2023 acetaminophen (TYLENOL) 500 mg tablet Indications: Granulomatosis with polyangiitis, unspecified whether renal involvement (HCC) Take 2 tablets by mouth as directed. prior to Rituximab infusion. 2 tablet 0 03/30/2022 03/30/2023 Active Start: 10-28-2020 acetaminophen (TYLENOL) tablet 650 mg take 1 tablet by donovan every eight hours as needed acetaminophen (TYLENOL) 500 mg tablet Take 500 mg by mouth every 8 hours as needed for pain. Active Comment on above: Take 2 tablets by [facility] as directed. prior to Rituximab infusion. cefTRIAXone 1000 mg injection (1 source) Cephalosporin Antibacterial End: 08-27 inject 1 g by intramuscular injection once daily cefTRIAXone (ROCEPHIN) 1 gram intramuscular injection Inject 1 g intramuscularly once daily. 0 08/27/2022 Discontinued (Course of therapy completed) Comment on above: Inject 1 g intramusc ularly once daily. diphenhydrAMINE hydrochloride 25 mg oral capsule (15 sources) Histamine-1 Receptor Antagonist Start : 02-26 End: 02-26 take 1 dose by mouth once 50 mg, ORAL, ONCE, 1 dose, On Tue02/26/25 at 0930 Start: 02-12-2025 End: 02-12-2025 take 1 dose by mouth once 50 mg, ORAL, ONCE, 1 dose, O n Tue02/12/25 at 0930 Start: 08-09-2024 End: 08-09-2024 take 1 dose by mouth once 50 mg, ORAL, ONCE, 1 dose, O n Tue08/09/24 at 0700 Start: 03-30-2022 End: 03-30-2023 diphenhydrAMINE (BENADRYL) 5 0 mg capsule Indications: Granulomatosis with polyangiitis, unspecified whether renal involvement (HCC) Take 1 capsule by mouth as directed. prior to Rituximab infusion. 1 capsule 0 03/30/2022 03/30/2023 Active Comment on above: Take 1 capsule by [facility] as directed. prior to Rituximab infusion. 0.3 ml enoxaparin sodium 100 mg/ml prefilled syringe (1 source) Low Molecular Weight Heparin Start: 2019 End: 2019 inject 30 mg by subcutaneous injection twice daily 30 mg, Subcutaneous, 2 TIMES DAILY, First dose on Tue10/28/20 at 2100 iopamidol (ISOVUE-370) 76 % injection 75 mL (1 source) Start: 2019 End: 2019 iopamidol (ISOVUE-370) 76 % injection 75 mL methylPREDNISolone 125 mg injection (15 sources) Corticosteroid Start: 2024 End: 2024 125 mg, INTRAVENOUS, ONCE, 1 dose, On Tue02/26/25 at 0930 Start: 02-12-2025 End: 02-12-2025 125 mg, INTRAVENOUS, ONCE, 1 dose, On Tue02/12/25 at 0930 Start: 08-09-2024 End: 08-09-2024 125 mg, INTRAVENOUS, ONCE, 1 dose, On Tue08/09/24 at 0700 Start: 03-30-2022 End: 03-30-2023 methylPREDNISolone sodium roy ccinate (SOLU-MEDROL) 125 mg injection Indications: Granulomatosis with polyangiitis, unspecified whether renal involvement (HCC) Inject 2 mL intravenously as directed. prior to Rituximab infusion. 2 mL 0 03/30/2022 03/30/2023 Active Comment on above: Inject 2 mL intraven ously as directed. prior to Rituximab infusion. Fmwcb-9-GLI-EPA-Fish Oil (FISH OIL) 1,000 mg (120 mg-180 mg) cap (6 sources) take 1 capsule by mouth once daily Rsxjw-7-YIS-EPA-Fish Oil (FISH OIL) 1,000 mg (120 mg-180 mg) cap Take 2 g by mouth once daily. 0 Active Comment on above: Take 2 g by mouth on ce daily. microencapsulated potassium chloride 20 meq extended release oral tablet (1 source) Start: End: potassium chloride (KLOR-CON M) extended release tablet 40 mEq predniSONE 20 mg oral tablet (5 sources) End: take 1 tablet by mouth twice daily predniSONE (DELTASONE) 20 mg tablet Take 20 mg by mouth twice daily. 0 07/27/2022 Discontinued Comment on above: Take 20 mg by mouth twice daily. riTUXimab 1,000 mg in NaCl 0.9% 500 mL (1 source) Start: End: riTUXimab 1,000 mg in NaCl 0.9% 500 mL Indications: Granulomatosis with polyangiitis, unspecified whether renal involvement (HCC) Inject 1,000 mg intravenously as directed for 1 dose. 1 Bag 0 09/29/2021 03/30/2022 Discontinued Comment on above: Inject 1,000 mg intr avenously as directed for 1 dose. riTUXimab-pvvr 1,000 mg in NaCl 0.9% 640 mL (RUXIENCE) (4 sources) Start: 025 End: 1,000 mg, INTRAVENOUS, ONCE, 1 dose, On Tue02/26/25 at 1000, EXP: Refrigerate. Start: 02-12-2025 End: 02-12-2025 1,000 mg, INTRAVENOUS, ONCE, 1 dose, On Tue02/12/25 at 1000, EXP: Refrigerate. Start: 08-09-2024 End: 08-09-2024 1,000 mg, INTRAVENOUS, ONCE, 1 dose, On [place] 08/09/24 at 0730, EXP: Refrigerate. Start: 05-05-2022 End: 05-05-2022 riTUXimab-pvvr 1,000 mg in N aCl 0.9% 640 mL (RUXIENCE) rivaroxaban 15 mg oral tablet (20 sources) Factor Xa Inhibitor Start: 08-11-2015 End: 09-04-2015 take 1 tablet by mouth twice daily Rivaroxaban (Xarelto) 15 MG tablet Discontinued 15 mg PO TWICE A DAY August 11, 2015 12:00am September 04, 2015 11:35pm Problems Active Problems Problem Classification Problem Date Documented Date Episodic/Chronic Abdominal pain (20 sources) Abdominal pain; Translations: [Unspecified abdominal pain] 03-02-2019 Episodic Blindness and vision defects (20 sources) Visual hallucinations; Translations: [Visual hallucinations] 03-03-2019 Episodic Cardiac dysrhythmias (20 sources) Ventricular premature beats; Translations: [Ventricular premature depolarization] Onset: 08-20-2019 03-25-2020 Chronic Chronic kidney disease (20 sources) Chronic kidney disease stage 3; Translations: [Chronic kidney disease] Onset: 07-10-2018 08-23-2019 Chronic Chronic kidney disease (2 sources) Chronic kidney disease; Translations: [Stage 3b chronic kidney disease (HCC)] Onset: 12-20-2023 Congestive heart failure; nonhypertensive (20 sources) Chronic systolic heart failure; Translations: [Chronic systolic (congestive) heart failure] Onset: 03-19-2021 03-19-2021 Chronic Deficiency and other anemia (1 source) Anemia, unspecified; Translations: [Anemia, unspecified] Onset: 03-29-2025 Episodic Diabetes mellitus with complications (11 sources) 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; Translations: [Type 2 diabetes mellitus with diabetic chronic kidney disease] Onset: 04-07-2017 Resolved: 07-15-2017 07-15-2017 Chronic Diabetes mellitus without complication (2 sources) Type 2 diabetes mellitus without complications; Translations: [Type 2 diabetes mellitus without complications] Onset: 08-17-2024 Chronic Diseases of white blood cells (20 sources) Leukocytosis; Translations: [Elevated white blood cell count, unspecified] Onset: 08-17-2016 08-15-2019 Chronic Disorders of lipid metabolism (20 sources) Mixed hyperlipidemia; Translations: [Mixed hyperlipidemia] Onset: 03-25-2020 03-25-2020 Chronic Esophageal disorders (20 sources) Gastroesophageal reflux disease; Translations: [Gastro-esophageal reflux disease without esophagitis] Onset: 02-11-2010 Resolved: 07-10-2018 01-10-2011 Chronic Essential hypertension (20 sources) Essential hypertension; Translations: [Essential (primary) hypertension] Onset: 03-05-2019 03-25-2020 Chronic Fluid and electrolyte disorders (1 source) Hypokalemia; Translations: [Hypokalemia] Episodic Gastritis and duodenitis (11 sources) Chronic gastritis; Translations: [Unspecified chronic gastritis without bleeding] Onset: 02-11-2010 Resolved: 07-10-2018 07-10-2018 Chronic Genitourinary symptoms and ill-defined conditions (1 source) Other difficulties with micturition; Translations: [Other difficulties with micturition] Onset: 11-14-2019 Gout and other crystal arthropathies (2 sources) Idiopathic chronic gout, unspecified site, without tophus (tophi); Translations: [Idiopathic chronic gout, unspecified site, without tophus (tophi)] Onset: 02-18-2025 Chronic Hypertension with complications and secondary hypertension (5 sources) Benign hypertension; Translations: [Hypertensive chronic kidney disease with stage 1 through stage 4 chronic kidney disease, or unspecified chronic kidney disease] Onset: 07-17-2024 Chronic Mood disorders (20 sources) Bipolar I disorder; Translations: [Bipolar disorder, unspecified] Onset: 10-21-2009 08-23-2019 Chronic Nonspecific chest pain (20 sources) Chest pain; Translations: [Chest pain, unspecified] 03-02-2019 Episodic Other aftercare (3 sources) Other yard spotter (current) drug therapy; Translations: [Other halfway (current) drug therapy] Onset: 11-14-2019 Episodic Other and ill-defined heart disease (20 sources) Mild left ventricular systolic dysfunction; Translations: [Other ill-defined heart diseases] Onset: 08-20-2019 03-25-2020 Chronic Other circulatory disease (20 sources) Vasculitis; Translations: [Arteritis, unspecified] Onset: 08-11-2016 11-10-2021 Chronic Other circulatory disease (1 source) Arteritis, unspecified; Translations: [Vasculitis (HCC)] Onset: 11-10-2021 Chronic Other congenital anomalies (20 sources) Porokeratosis; Translations: [Other specified congenital malformations of skin] Onset: 02-03-2010 01-10-2011 Chronic Other lower respiratory disease (1 source) Hypoxia; Translations: [Hypoxia] Episodic Other non-traumatic joint disorders (1 source) Pain in right knee; Translations: [Pain in joint, lower leg] Episodic Other nutritional; endocrine; and metabolic disorders (20 sources) Cholesterol level - finding; Translations: [Lipoprotein deficiency] Onset: 06-28-2011 06-28-2011 Chronic Other nutritional; endocrine; and metabolic disorders (20 sources) Body mass index 40+ - severely obese; Translations: [Morbid (severe) obesity due to excess calories] Onset: 07-14-2015 08-23-2019 Chronic Other nutritional; endocrine; and metabolic disorders (1 source) Myoadenylate deaminase deficiency; 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] Onset: 07-09-2024 Chronic Other skin disorders (1 source) Eruption; Translations: [Rash and other nonspecific skin eruption] 09-14-2024 Episodic Other skin disorders (1 source) Rash and other nonspecific skin eruption; Translations: [Rash and nonspecific skin eruption] Onset: 09-14-2024 Episodic Other upper respiratory infections (2 sources) Chronic ethmoidal sinusitis; Translations: [Other chronic sinusitis] Onset: 08-06-2019 Chronic Rina-; endo-; and myocarditis; cardiomyopathy (except that caused by tuberculosis or sexually transmitted disease) (20 sources) Cardiomyopathy; Translations: [Other cardiomyopathies] Onset: 08-01-2020 08-01-2020 Chronic Residual codes; unclassified (20 sources) Obstructive sleep apnea syndrome; Translations: [Obstructive sleep apnea (adult) (pediatric)] Onset: 11-17-2018 08-23-2019 Chronic Rheumatoid arthritis and related disease (20 sources) Rheumatoid arthritis; Translations: [Rheumatoid arthritis, unspecified] Onset: 12-08-2012 Resolved: 07-10-2018 12-24-2020 Chronic Schizophrenia and other psychotic disorders (20 sources) Chronic paranoid schizophrenia; Translations: [Paranoid schizophrenia] Onset: 08-17-2024 03-03-2019 Chronic Spondylosis; intervertebral disc disorders; other back problems (20 sources) Lumbar discogenic pain; Translations: [Other intervertebral disc displacement, lumbar region] Onset: 03-30-2017 03-30-2017 Chronic Substance-related disorders (20 sources) Tobacco dependence in remission; Translations: [Nicotine dependence, unspecified, in remission] Onset: 07-14-2015 07-14-2015 Chronic Systemic lupus erythematosus and connective tissue disorders (20 sources) Granulomatosis with polyangiitis; Translations: [Rey's granulomatosis without renal involvement] Onset: 09-10-2016 Resolved: 09-14-2024 Chronic Past or Other Problems Problem Classification Problem Date Documented Da te Episodic/Chronic Abdominal hernia (20 sources) Hernia of anterior abdominal wall; Translations: [Ventral hernia without obstruction or gangrene] Onset: 6 11-20-2015 Episodic Diabetes mellitus without complication (20 sources) Hyperglycemia; Translations: [Hyperglycemia, unspecified] Onset: 8 08-23-2019 Episodic Epilepsy; convulsions (11 sources) Seizure; Translations: [Unspecified convulsions] Onset: 9 Resolved: 9 08-23-2019 Episodic Gastritis and duodenitis (11 sources) Acute gastritis; Translations: [Acute gastritis without bleeding] Onset: 8 Resolved: 0 02-11-2010 Episodic Nutritional deficiencies (11 sources) Undernutrition; Translations: [Mild protein-calorie malnutrition] Onset: 6 Resolved: 8 07-10-2018 Chronic Other aftercare (20 sources) Immunosuppression; Translations: [Immunosuppression due to drug therapy] Onset: 9 01-08-2019 Episodic Other and unspecified benign neoplasm (20 sources) History of polyp of colon; Translations: [Personal history of colonic polyps] Onset: 8 04-27-2018 Episodic Other connective tissue disease (20 sources) History of lumbar fusion; Translations: [Arthrodesis status] Onset: 5 03-28-2017 Episodic Other connective tissue disease (20 sources) Recurrent falls ; Translations: [Repeated falls] Onset: 9 08-23-2019 Episodic Other connective tissue disease (11 sources) Rupture of tendon of foot and ankle; Translations: [Spontaneous rupture of other tendons, unspecified ankle and foot] Onset: 9 Resolved: 6 07-30-2016 Episodic Other connective tissue disease (11 sources) Disorder of Achilles tendon; Translations: [Achilles tendinitis, unspecified leg] Onset: 0 Resolved: 6 07-30-2016 Episodic Other connective tissue disease (11 sources) Enthesopathy; Translations: [Enthesopathy, unspecified] Onset: 1 Resolved: 8 07-10-2018 Episodic Other connective tissue disease (11 sources) Pain of toe of left foot; Translations: [Pain in left toe(s)] Onset: 6 Resolved: 8 07-10-2018 Episodic Other gastrointestinal disorders (11 sources) Constipation; Translations: [Constipation, unspecified] Onset: 3 Resolved: 8 07-10-2018 Episodic Other gastrointestinal disorders (11 sources) Diarrhea; Translations: [Diarrhea, unspecified] Onset: 3 Resolved: 8 07-10-2018 Episodic Other injuries and conditions due to external causes (11 sources) Contusion; Translations: [Other injury of unspecified body region, initial encounter] Onset: 0 Resolved: 6 07-30-2016 Episodic Other nervous system disorders (11 sources) Disorder of brain; Translations: [Encephalopathy, unspecified] Onset: 9 Resolved: 9 08-23-2019 Chronic Other nervous system disorders (2 sources) Unsteadiness on feet; Translations: [Unsteadiness on feet] Onset: 9 Episodic Other nervous system disorders (20 sources) Impairment of balance; Translations: [Other abnormalities of gait and mobility] Onset: 8 10-10-2018 Episodic Other nervous system disorders (20 sources) Paresthesia; Translations: [Paresthesia of skin] Onset: 1 12-24-2020 Episodic Other nutritional; endocrine; and metabolic disorders (11 sources) Constitutional obesity; Translations: [Other obesity] Onset: 5 Resolved: 8 07-10-2018 Chronic Other screening for suspected conditions (not mental disorders or infectious disease) (20 sources) Electrocardiogram abnormal; Translations: [Abnormal electrocardiogram [ECG] [EKG]] Onset: 9 08-23-2019 Episodic Pneumonia (except that caused by tuberculosis or sexually transmitted disease) (13 sources) Pneumonia due to other virus not elsewhere classified; Translations: [Pneumonia, unspecified organism] Onset: 8 Resolved: 0 10-28-2020 Episodic Rehabilitation care; fitting of prostheses; and adjustment of devices (11 sources) Patient encounter status; Translations: [Other physical therapy] Onset: 1 Resolved: 8 07-10-2018 Episodic Residual codes; unclassified (20 sources) Confusional state; Translations: [Disorientation, unspecified] Onset: 9 01-08-2019 Episodic Residual codes; unclassified (11 sources) Tobacco user; Translations: [Tobacco use] Onset: 9 Resolved: 8 07-10-2018 Episodic Results Test Name Value Interpretation Reference Range Facility Lithiumon 04-01-2025 LI 0.64 mmol/L Normal 0.60-1.20 [facility] Comment on above: Order Comment: 111.2 Performed By: #### L [id number], L500.4050, L100.0100 #### [facility] [address] [place], [place], [address] Serum or plasma uric acid me asurement (mass/volume)Ordered By: Alfredo Phipps on 03-27-2025 Urate [Mass/Vol] 6.5 mg/dL 3.5-7.2 [facility] Comment on above: The drugs N-Acetylcy steine and Metamizole may falsely depress this assay. Uric Acidon 03-27-2025 URIC 6.5 mg/dL Normal 3.5-7.2 [facility] Comment on above: Order Comment: 111.2 Result Comment: The drugs N-Acetylcysteine and Metamizole may falsely depress this assay. Performed By: #### L [id number] #### [facility] [address] [place], [place], [address] Microalb:Creat Ratio,Random URon 03-05-2025 Creatinine [Mass/Vol] 72.80 mg/dL Normal 39.00- 259. 00 [facility] Comment on above: Performed By: #### L [id number] #### [facility] [address] [place], [address] MALB:CREAT UNABLE TO CALCULATE Normal [facility] Comment on above: Performed By: #### L [id number] #### [facility] [address] [place], [address] MICROALBUMIN,UR < 12.0 Normal NO RANGE EST. [facility] Comment on above: Performed By: #### L [id number] #### [facility] [address] [place], [address] Microalbumin/creat ratio urO rdered By: Adam Ferraro on 03-04-2025 Urine microalbumin/creatinine ratio measurement UNABLE TO CALCULATE mg/g CRE [facility] Random urine creatinine you urement (mass/volume)Ordered By: Adam Ferraro on 03-04-2025 Creatinine Unsp time (U) [Mass/Vol] 72.80 mg/dL 39.00-259. 00 [facility] Urine albumin measurement wi detection limit of 20 mg/L or less (mass/volume)Ordered By: Adam Ferraro on 03-04-2025 Albumin DL <= 20 mg/L (U) [Mass/Vol] < 12.0 mg/L NO RANGE EST. [facility] Absolute lymphocyte countOrd ered By: Alfredo Phipps on 02-27-2025 Lymphocytes Auto (Unsp spec) [#/Vol] 1.42 10*3/uL 0.83-4.51 [facility] Absolute neutrophil countOrd ered By: Alfredo Phipps on 02-27-2025 Neutrophils (Bld) [#/Vol] 17.7 10*3/uL High 2.0-7.7 [facility] Anion gap in Serum or Plasma Ordered By: Alfredo Phipps on 02-27-2025 Anion gap [Moles/Vol] 12 mmol/L 5-15 [facility] Automated lymphocyte count a s percentage of total leukocytesOrdered By: Alfredo Phipps on 02-27-2025 Lymphocytes/100 WBC Auto (Unsp spec) 6.9 % Low 19-41 [facility] BUN/creatinine ratioOrdered By: Alfredo Phipps on 02-27-2025 Urea nitrogen/Creatinine [Mass ratio] 12.7 mg/mg 10-20 [facility] Basophil percentageOrdered B y: Alfredo Phipps on 02-27-2025 Basophils/100 WBC (Bld) 0.2 % 0-1 [facility] Bilirubin directOrdered By: Alfredo Phipps on 02-27-2025 Bilirubin.direct [Mass/Vol] 0.10 mg/dL 0.00-0.30 [facility] Bilirubin, Directon 02-28-20 25 Bilirubin.direct [Mass/Vol] 0.10 mg/dL Normal 0.00-0.30 [facility] Comment on above: Order Comment: 111.2 Performed By: #### L [id number] #### [facility] [address] [place], [address] Bilirubin, totalOrdered By: Alfredo Phipps on 02-27-2025 Bilirubin [Mass/Vol] 0.19 mg/dL 0.00-1.30 [facility] CBC W/Diff, Automatedon 02-12 Absolute Lymph 1.42 X10 3/uL Normal 0.83-4.51 [facility] Comment on above: Order Comment: 111.2 Performed By: #### L [id number] #### [facility] [address] [place], [address] Absolute Neut 17.7 X10 3/uL High 2.0-7.7 [facility] Comment on above: Order Comment: 111.2 Performed By: #### L [id number] #### [facility] [address] [place], [address] Basophils/100 WBC (Bld) 0.2 % Normal 0-1 [facility] Comment on above: Order Comment: 111.2 Performed By: #### L [id number] #### [facility] [address] [place], [address] Eosinophils/100 WBC (Bld) 0.0 % Normal 0-5 [facility] Comment on above: Order Comment: 111.2 Performed By: #### L [id number] #### [facility] [address] [place], [address] Erythrocyte distribution width (RBC) [Ratio] 13.3 % Normal 11.6-14.6 [facility] Comment on above: Order Comment: 111.2 Performed By: #### L [id number] #### [facility] [address] [place], [address] Hematocrit (Bld) [Volume fraction] 39.0 % Low 40-54 [facility] Comment on above: Order Comment: 111.2 Performed By: #### L [id number] #### [facility] [address] [place], [address] Hemoglobin (Bld) [Mass/Vol] 13.1 g/dL Normal 13.0-16.5 [facility] Comment on above: Order Comment: 111.2 Performed By: #### L [id number] #### [facility] [address] [place], [address] IG% 0.900 Normal 0.0-0.9 [facility] Comment on above: Order Comment: 111.2 Result Comment: IG% - Immature Granulocytes (promyelocytes, myelocytes and metamyelocytes) > 1% indicates that a LEFT SHIFT is Present. Performed By: #### L [id number] #### [facility] [address] [place], [address] Lymphocytes/100 WBC (Bld) 6.9 % Low 19-41 [facility] Comment on above: Order Comment: 111.2 Performed By: #### L [id number] #### [facility] [address] [place], [address] MCH (RBC) [Entitic mass] 30.1 pg Normal 27.0-32.0 [facility] Comment on above: Order Comment: 111.2 Performed By: #### L [id number] #### [facility] [address] [place], [address] MCHC (RBC) [Mass/Vol] 33.6 g/dL Normal 32-36 [facility] Comment on above: Order Comment: 111.2 Performed By: #### L [id number] #### [facility] [address] [place], [address] MCV (RBC) [Entitic vol] 89.7 fL Normal 80-94 [facility] Comment on above: Order Comment: 111.2 Performed By: #### L [id number] #### [facility] [address] [place], [address] Monocytes/100 WBC (Bld) 6.4 % Normal 0-10 [facility] Comment on above: Order Comment: 111.2 Performed By: #### L [id number] #### [facility] [address] [place], [address] Neutrophils/100 WBC (Bld) 85.6 % High 47-70 [facility] Comment on above: Order Comment: 111.2 Performed By: #### L [id number] #### [facility] [address] [place], [address] Nucleated RBC (Bld) [#/Vol] 0 10*3/uL Normal 0-5 [facility] Comment on above: Order Comment: 111.2 Performed By: #### L [id number] #### [facility] [address] [place], [address] Platelet mean volume (Bld) [Entitic vol] 9.3 fL Normal 6.2-12.0 [facility] Comment on above: Order Comment: 111.2 Performed By: #### L [id number] #### [facility] [address] [place], [address] Platelets (Bld) [#/Vol] 274 10*3/uL Normal 150-450 [facility] Comment on above: Order Comment: 111.2 Performed By: #### L [id number] #### [facility] [address] [place], [address] RBC (Bld) [#/Vol] 4.35 10*6/uL Low 4.6-6.2 [facility] Comment on above: Order Comment: 111.2 Performed By: #### L [id number] #### [facility] [address] [place], [address] RDW SD 43.8 fl Normal 35.1-43.9 [facility] Comment on above: Order Comment: 111.2 Performed By: #### L [id number] #### [facility] [address] [place], [address] WBC (Bld) [#/Vol] 20.6 10*3/uL High 4.4-11.0 [facility] Comment on above: Order Comment: 111.2 Performed By: #### L [id number] #### [facility] [address] [place], [address] Carbon dioxide, total [Moles /volume] in Central venous bloodOrdered By: Alfredo Phipps on 02-27-2025 CO2 [Moles/Vol] 20.5 mmol/L Low 21.0-32.0 [facility] Chloride assayOrdered By: Chan Fiore on 02-27-2025 Chloride [Moles/Vol] 105 mmol/L 98-108 [facility] Comprehensive Metabolic Prof ilon 02-27-2025 Albumin [Mass/Vol] 3.9 g/dL Normal 3.4-4.8 [facility] Comment on above: Order Comment: 111.2 Performed By: #### L [id number] #### [facility] [address] [place], [address] Albumin/Globulin [Mass ratio] 1.6 {ratio} Normal 0.9-2.4 [facility] Comment on above: Order Comment: 111.2 Performed By: #### L [id number] #### [facility] [address] [place], [address] ALK PHOS 66 U/L Normal 40-129 [facility] Comment on above: Order Comment: 111.2 Performed By: #### L [id number] #### [facility] [address] [place], [address] ALT [Catalytic activity/Vol] 13 U/L Normal <=46 [facility] Comment on above: Order Comment: 111.2 Performed By: #### L [id number] #### [facility] [address] [place], [address] AST [Catalytic activity/Vol] 11 U/L Normal <=37 [facility] Comment on above: Order Comment: 111.2 Performed By: #### L [id number] #### [facility] [address] [place], [address] Bilirubin [Mass/Vol] 0.19 mg/dL Normal 0.00-1.30 [facility] Comment on above: Order Comment: 111.2 Performed By: #### L [id number] #### [facility] [address] [place], [address] BUN/CRE 12.7 RATIO Normal 10-20 [facility] Comment on above: Order Comment: 111.2 Performed By: #### L [id number] #### [facility] [address] [place], [address] Calcium [Mass/Vol] 9.8 mg/dL Normal 7.6-11.0 [facility] Comment on above: Order Comment: 111.2 Performed By: #### L [id number] #### [facility] [address] [place], [address] Chloride [Moles/Vol] 105 mmol/L Normal 98-108 [facility] Comment on above: Order Comment: 111.2 Performed By: #### L [id number] #### [facility] [address] [place], [address] CO2 [Moles/Vol] 20.5 mmol/L Low 21.0-32.0 [facility] Comment on above: Order Comment: 111.2 Performed By: #### L [id number] #### [facility] [address] [place], [address] Creatinine [Mass/Vol] 2.32 mg/dL High 0.70-1.20 [facility] Comment on above: Order Comment: 111.2 Performed By: #### L [id number] #### [facility] [address] [place], [address] GAP 12 Normal 5-15 [facility] Comment on above: Order Comment: 111.2 Performed By: #### [id number] #### [facility] [address] [place], [address] GFR/1.73 sq M.predicted among non-blacks MDRD (S/P/Bld) [Vol rate/Area] 31 mL/min/{1.73_m2} Low >60 [facility] Comment on above: Order Comment: 111.2 Result Comment: mL/m in/1.73m2 CKD-EPI Creatinine Equation (2020) Performed By: #### L [id number] #### [facility] [address] [place], [address] Globulin (S) [Mass/Vol] 2.4 g/dL Normal 2.2-4.2 [facility] Comment on above: Order Comment: 111.2 Performed By: #### [id number] #### [place] [facility] [address] [place], [address] Glucose [Mass/Vol] 134 mg/dL High 70-99 [facility] Comment on above: Order Comment: 111.2 Performed By: #### [id number] #### [facility] [address] [place], [address] Potassium [Moles/Vol] 4.4 mmol/L Normal 3.3-5.1 [facility] Comment on above: Order Comment: 111.2 Performed By: #### [id number] #### [facility] [address] [place], [address] Sodium [Moles/Vol] 138 mmol/L Normal 133-145 [facility] Comment on above: Order Comment: 111.2 Performed By: #### [id number] #### [facility] [address] [place], [address] T PROT 6.2 g/dL Normal 5.9-8.4 [facility] Comment on above: Order Comment: 111.2 Performed By: #### [id number] #### [facility] [address] [place], [address] Urea nitrogen [Mass/Vol] 29 mg/dL High 4-19 [facility] Comment on above: Order Comment: 111.2 Performed By: #### L [id number] #### [facility] [address] [place], [address] Eosinophil percentageOrdered By: Alfredo Phipps on 02-27-2025 Eosinophils/100 WBC (Bld) 0.0 % 0-5 [facility] Erythrocyte distribution wid th (RBC) [Ratio]Ordered By: Alfredo Phipps on 02-27-2025 Erythrocyte distribution width (RBC) [Entitic vol] 43.8 fL 35.1-43.9 [facility] Erythrocyte distribution wid th ratioOrdered By: Alfredo Phipps on 02-27-2025 Erythrocyte distribution width (RBC) [Ratio] 13.3 % 11.6-14.6 [facility] Erythrocyte distribution wid th standard deviationOrdered By: Alfredo Phipps on 02-27-2025 Erythrocyte distribution width (RBC) [Ratio] 43.8 fl 35.1-43.9 [facility] GFR/1.73 sq M.predicted miles g non-blacks MDRD (S/P/Bld) [Vol rate/Area]Ordered By: Alfredo Phipps on 02-27-2025 Estimated GFR (MDRD) Non-Af Amer 31 Low >60 [facility] Comment on above: mL/min/1.73m2 CKD-EP I Creatinine Equation (2020) Glomerular filtration rate ( GFR) estimation/1.73 sq m using serum, plasma, or whole bOrdered By: Alfredo Phipps on 02-27-2025 GFR/1.73 sq M.predicted among non-blacks MDRD (S/P/Bld) [Vol rate/Area] 31 mL/min/{1.73_m2} Low >60 [facility] Comment on above: mL/min/1.73m2 CKD-EP I Creatinine Equation (2020) Hematocrit Auto (Bld) [Volum e fraction]Ordered By: Alfredo Phipps on 02-27-2025 Hematocrit (Bld) [Volume fraction] 39.0 % Low 40-54 [facility] Hemoglobin measurementOrdere d By: Alfredo Phipps on 02-27-2025 Hemoglobin (Bld) [Mass/Vol] 13.1 g/dL 13.0-16.5 [facility] Immature granulocytes/100 WB C Auto (Bld)Ordered By: Alfredo Phipps on 02-27-2025 Immature granulocytes/100 WBC (Bld) 0.900 % 0.0-0.9 [facility] Comment on above: IG% - Immature Granu locytes (promyelocytes, myelocytes and metamyelocytes) > 1% indicates that a LEFT SHIFT is Present. Laboratory - Chemistry and C hemistry - challengeOrdered By: Alfredo Phipps on 02-27-2025 AST [Catalytic activity/Vol] 11 U/L <38 [facility] Lithiumon 02-27-2025 LI 0.60 mmol/L Normal 0.60-1.20 [facility] Comment on above: Order Comment: 111.2 Performed By: #### L [id number] #### [facility] [place], [address] [place] levelOrdered By: Jennifer Phipps on 02-27-2025 [place] Level 0.60 mmol/L 0.60-1.20 [facility] Lymphocytes Auto (Unsp spec) [#/Vol]Ordered By: Alfredo Phipps on 02-27-2025 Lymphocytes (Bld) [#/Vol] 1.42 10*3/uL 0.83-4.51 [facility] Lymphocytes/100 WBC Auto (Un sp spec)Ordered By: Alfredo Phipps on 02-27-2025 Lymphocytes/100 WBC (Bld) 6.9 % Low 19-41 [facility] MCV (mean corpuscular volume ) determinationOrdered By: Alfredo Phipps on 02-27-2025 MCV (RBC) [Entitic vol] 89.7 fL 80-94 [facility] Mean corpuscular hemoglobin (MCH) determinationOrdered By: Alfredo Phipps on 02-27-2025 MCH (RBC) [Entitic mass] 30.1 pg 27.0-32.0 [facility] Mean corpuscular hemoglobin concentration (MCHC) determinationOrdered By: Alfredo Phipps on 02-27-2025 MCHC (RBC) [Mass/Vol] 33.6 g/dL 32-36 [facility] Mean platelet volume determi nationOrdered By: Alfredo Phipps on 02-27-2025 Platelet mean volume (Bld) [Entitic vol] 9.3 fL 6.2-12.0 [facility] Monocyte percentageOrdered B y: Alfredo Phipps on 02-27-2025 Monocytes/100 WBC (Bld) 6.4 % 0-10 [facility] Neutrophil percentageOrdered By: Alfredo Phipps on 02-27-2025 Neutrophils/100 WBC (Bld) 85.6 % High 47-70 [facility] Nucleated red blood cell per centageOrdered By: Alfredo Phipps on 02-27-2025 Nucleated RBC/100 WBC (Bld) [Ratio] 0 % 0-5 [facility] Platelet countOrdered By: Chan Fiore on 02-27-2025 Platelets (Bld) [#/Vol] 274 10*3/uL 150-450 [facility] Potassium (Unsp spec) [Mass/ Vol]Ordered By: Alfredo Phipps on 02-27-2025 Potassium [Moles/Vol] 4.4 mmol/L 3.3-5.1 [facility] Potassium measurement (mass/ volume)Ordered By: Alfredo Phipps on 02-27-2025 Potassium (Unsp spec) [Mass/Vol] 4.4 mmol/L 3.3-5.1 [facility] RBC Auto (Bld) [#/Vol]Ordere d By: Alfredo Phipps on 02-27-2025 RBC (Bld) [#/Vol] 4.35 10*6/uL Low 4.6-6.2 [facility] Serum creatinine measurement (mass/volume)Ordered By: Alfredo Phipps on 02-27-2025 Creatinine [Mass/Vol] 2.32 mg/dL High 0.70-1.20 [facility] Serum globulin measurementOr dered By: Alfredo Phipps on 02-27-2025 Globulin (S) [Mass/Vol] 2.4 g/dL 2.2-4.2 [facility] Serum glucose measurement (m ass/volume)Ordered By: Alfredo Phipps on 02-27-2025 Glucose [Mass/Vol] 134 mg/dL High 70-99 [facility] Serum or plasma alanine sesay otransferase (ALT) measurementOrdered By: Alfredo Phipps on 02-27-2025 ALT [Catalytic activity/Vol] 13 U/L <47 [facility] Serum or plasma albumin you urement (mass/volume)Ordered By: Alfredo Phipps on 02-27-2025 Albumin [Mass/Vol] 3.9 g/dL 3.4-4.8 [facility] Serum or plasma albumin/glob ulin mass ratioOrdered By: Alfredo Phipps on 02-27-2025 Albumin/Globulin [Mass ratio] 1.6 {ratio} 0.9-2.4 [facility] Serum or plasma alkaline hal sphatase measurementOrdered By: Alfredo Phipps on 02-27-2025 ALP [Catalytic activity/Vol] 66 U/L 40-129 [facility] Serum or plasma calcium you urement (mass/volume)Ordered By: Alfredo Phipps on 02-27-2025 Calcium [Mass/Vol] 9.8 mg/dL 7.6-11.0 [facility] Serum or plasma urea nitroge n measurement (mass/volume)Ordered By: Alfredo Phipps on 02-27-2025 Urea nitrogen [Mass/Vol] 29 mg/dL High 4-19 [facility] Sodium levelOrdered By: Raffi Phipps on 02-27-2025 Sodium [Moles/Vol] 138 mmol/L 133-145 [facility] Total proteinOrdered By: Jennifer Phipps on 02-27-2025 Protein [Mass/Vol] 6.2 g/dL 5.9-8.4 [facility] White blood cell (WBC) count Ordered By: Alfredo Phipps on 02-27-2025 WBC (Bld) [#/Vol] 20.6 10*3/uL High 4.4-11.0 [facility] Serum or plasma uric acid me asurement (mass/volume)Ordered By: Adam Ferraro on 02-25-2025 Urate [Mass/Vol] 6.3 mg/dL 3.5-7.2 [facility] Comment on above: The drugs N-Acetylcy steine and Metamizole may falsely depress this assay. Uric Acidon 02-25-2025 URIC 6.3 mg/dL Normal 3.5-7.2 [facility] Comment on above: Order Comment: 111.2 Result Comment: The drugs N-Acetylcysteine and Metamizole may falsely depress this assay. Performed By: #### L [id number] #### [facility] [address] [place], [address] Calculated very low density lipoprotein (VLDL) cholesterol measurementOrdered By: Alfredo Phipps on 02-11-2025 Calculated very low density lipoprotein (VLDL) cholesterol measurement 43 mg/dL High 5-40 [facility] VLDL Cholesterol 43 mg/dL High 5-40 [facility] LDL calc ser/plasOrdered By: Alfredo Phipps on 02-11-2025 Cholesterol in LDL [Mass/Vol] 67 mg/dL [facility] Comment on above: Hwjjphixxw=554-846 m g/dL & Higher Aikk=653 mg/dL or greater LDL Cholesterol, Calculated 67 mg/dL [facility] Comment on above: Ilmuiltwwj=695-336 m g/dL & Higher Fltp=282 mg/dL or greater Lipid Profileon 02-11-2025 CHOL:HDL 4.53 Normal [facility] Comment on above: Order Comment: 111.2 Performed By: #### [id number] #### [facility] [address] [place], [place], [id number] (236) Cholesterol [Mass/Vol] 141 mg/dL Normal <=200 [facility] Comment on above: Order Comment: 111.2 Result Comment: Chol esterol level, Desirable <200 mg/dL Borderline high cholesterol 200-239 mg/dL High cholesterol >=240 mg/dL Recommendations of the NCEP Adult Treatment Panel for the following risk-cutoff thresholds for the [place] population. Performed By: #### L [id number] #### [facility] [address] [place], [place], [id number] (297) Cholesterol in HDL [Mass/Vol] 31 mg/dL Low [facility] Comment on above: Order Comment: 111.2 Result Comment: Fabienne onal Cholesterol Education Program (NCEP) guidelines: <40 mg/dL: Low HDL-cholesterol (major risk factor for CHD) >= 60 mg/dL: High HDL-cholesterol (negative risk factor for CHD) HDL-cholesterol is affected by a number of factors, e.g. smoking, exercise, hormones, sex and age. Performed By: #### L [id number] #### [facility] [address] [place], [address] Cholesterol in LDL [Mass/Vol] 67 mg/dL Normal [facility] Comment on above: Order Comment: 111.2 Result Comment: Bord qbrggo=394-351 mg/dL Higher Wici=701 mg/dL or greater Performed By: #### L [id number] #### [facility] [address] [place], [place], [id number] Cholesterol in VLDL [Mass/Vol] 43 mg/dL High 5-40 [facility] Comment on above: Order Comment: 111.2 Performed By: #### L [id number] #### [facility] [address] [place], [place], [id number] Triglyceride [Mass/Vol] 215 mg/dL High [facility] Comment on above: Order Comment: 111.2 Result Comment: The drugs N-Acetylcysteine and Metamizole may falsely depress this assay. Normal range: <150 mg/dL Borderline High: 150-199 mg/dL High: 200-499 mg/dL Very High: >500 mg/dL Performed By: #### L [id number] #### [facility] [address] [place], [place], [id number] Screening total cholesterol/ high density lipoprotein (HDL) cholesterol ratioOrdered By: Alfredo Phipps on 02-11-2025 Cholesterol.total/Choles terol in HDL [Mass ratio] 4.53 {ratio} [facility] Serum or plasma cholesterol in HDL measurement (mass/volume)Ordered By: Alfredo Phipps on 02-11-2025 Cholesterol in HDL [Mass/Vol] 31 mg/dL Low >40 [facility] Comment on above: National Cholesterol Education Program (NCEP) guidelines:<40 mg/dL: Low HDL-cholesterol (major risk factor for CHD)>= 60 mg/dL: High HDL-cholesterol (negative risk factor for CHD)HDL-cholesterol is affected by a number of factors, e.g. smoking, exercise, hormones, sex and age. Serum or plasma cholesterol measurement (mass/volume)Ordered By: Alfredo Phipps on 02-11-2025 Cholesterol [Mass/Vol] 141 mg/dL <201 [facility] Comment on above: Cholesterol level, D esirable <200 mg/dLBorderline high cholesterol 200-239 mg/dLHigh cholesterol >=240 mg/dLRecommendations of the NCEP Adult Treatment Panel for the following risk-cutoff thresholds for the [place] population. Triglycerides measurementOrd ered By: Alfredo Phipps on 02-11-2025 Triglyceride [Mass/Vol] 215 mg/dL High <199 [facility] Comment on above: The drugs N-Acetylcy steine and Metamizole may falsely depress this assay. Normal range: <150 mg/dLBorderline High: 150-199 mg/dLHigh: 200-499 mg/dLVery High: >500 mg/dL Hemoglobin A1con 02-06-2025 HbA1c (Bld) [Mass fraction] 5.8 % Normal <=5.6 [facility] Comment on above: Order Comment: 111.2 Performed By: #### L [id number] #### [facility] [address] [place], [place], [address] Hemoglobin A1c percentageOrd ered By: Alfredo Phipps on 02-06-2025 HbA1c (Bld) [Mass fraction] 5.8 % >5.7 [facility] Lithiumon 01-30-2025 LI 0.71 mmol/L Normal 0.60-1.20 [facility] Comment on above: Order Comment: 111.2 [id number] Performed By: #### L [id number] #### [facility] [address] [place], [place], [id number] [place] levelOrdered By: Benoit Ferraro on 01-30-2025 [place] Level 0.71 mmol/L 0.60-1.20 [facility] Serum or plasma uric acid me asurement (mass/volume)Ordered By: Adam Ferraro on 01-25-2025 Urate [Mass/Vol] 6.2 mg/dL 3.5-7.2 [facility] Comment on above: The drugs N-Acetylcy steine and Metamizole may falsely depress this assay. Uric Acidon 01-25-2025 URIC 6.2 mg/dL Normal 3.5-7.2 [facility] Comment on above: Order Comment: 111.2 Result Comment: The drugs N-Acetylcysteine and Metamizole may falsely depress this assay. Performed By: #### L [id number] #### [facility] [address] [place], [place], [address] Microalb:Creat Ratio,Random URon 01-03-2025 Creatinine [Mass/Vol] 104.00 mg/dL Normal NO RAN GE EST. [facility] Comment on above: Performed By: #### L [id number] #### [facility] [address] [place], [place], [id number] MALB:CRE TNP Normal <30 mg/g CRE [facility] Comment on above: Performed By: #### L [id number] #### [facility] [address] [place], [place], [id number] MICROALBUMIN,UR < 5.0 Normal NO RANGE EST. [facility] Comment on above: Performed By: #### L [id number] #### [facility] [address] [place], [place], [id number] Random urine microalbumin me asurementOrdered By: Adam Ferraro on 01-03-2025 Urine Random Microalbumin < 5.0 mg/L NO RANGE EST. [facility] Urine albumin/creatinine rat io for detection of microalbuminuriaOrdered By: Adam Ferraro on 01-03-2025 Urine Microalbumin/Creatinine Ratio TNP [facility] Comment on above: Test not performed Urine creatinine measurement (mass/volume)Ordered By: Adam Ferraro on 01-03-2025 Creatinine (U) [Mass/Vol] 104.00 mg/dL NO RANGE EST. [facility] Absolute lymphocyte countOrd ered By: Adam Ferraro on 01-02-2025 Lymphocytes Auto (Unsp spec) [#/Vol] 2.41 10*3/uL 0.83-4.51 [facility] Absolute neutrophil countOrd ered By: Adam Ferraro on 01-02-2025 Neutrophils (Bld) [#/Vol] 5.6 10*3/uL 2.0-7.7 [facility] Albumin to globulin ratioOrd ered By: Adam Ferraro on 01-02-2025 Albumin/Globulin [Mass ratio] 1.0 {ratio} 0.9-2.4 [facility] Automated lymphocyte count a s percentage of total leukocytesOrdered By: Adam Ferraro on 01-02-2025 Lymphocytes/100 WBC Auto (Unsp spec) 25.1 % [facility] Basophil percentageOrdered B y: Adam Ferraro on 01-02-2025 Basophils/100 WBC (Bld) 1.1 % High 0-1 [facility] Bilirubin, totalOrdered By: Adam Ferraro on 01-02-2025 Bilirubin [Mass/Vol] 0.30 mg/dL 0.20-1.00 [facility] Comment on above: For patients on eltr ombopag therapy, use of Dimension Waka TBIL is not recommended. Blood urea nitrogen (BUN)/cr eatinine ratioOrdered By: Adam Jasmine on 01-02-2025 Urea nitrogen/Creatinine [Mass ratio] 12.6 mg/mg 09-02 [facility] CBC W/Diff, Automatedon 12-15 Absolute Lymph 2.41 X10 3/uL Normal 0.83-4.51 [facility] Comment on above: Order Comment: 111.2 Performed By: #### L [id number] #### [facility] [address] [place], [address] Absolute Neut 5.6 X10 3/uL Normal 2.0-7.7 [facility] Comment on above: Order Comment: 111.2 Performed By: #### L [id number] #### [facility] [address] [place], [address] Basophils/100 WBC (Bld) 1.1 % High 0-1 [facility] Comment on above: Order Comment: 111.2 Performed By: #### L [id number] #### [facility] [address] [place], [address] Eosinophils/100 WBC (Bld) 5.3 % High 0-5 [facility] Comment on above: Order Comment: 111.2 Performed By: #### L [id number] #### [facility] [address] [place], [address] Erythrocyte distribution width (RBC) [Ratio] 12.9 % Normal 11.6-14.6 [facility] Comment on above: Order Comment: 111.2 Performed By: #### L [id number] #### [facility] [address] [place], [address] Hematocrit (Bld) [Volume fraction] 40.5 % Normal 40-54 [facility] Comment on above: Order Comment: 111.2 Performed By: #### L [id number] #### [facility] [address] [place], [address] Hemoglobin (Bld) [Mass/Vol] 13.4 g/dL Normal 13.0-16.5 [facility] Comment on above: Order Comment: 111.2 Performed By: #### L [id number] #### [facility] [address] [place], [address] IG% 0.500 Normal 0.0-0.9 [facility] Comment on above: Order Comment: 111.2 Result Comment: IG% - Immature Granulocytes (promyelocytes, myelocytes and metamyelocytes) > 1% indicates that a LEFT SHIFT is Present. Performed By: #### L [id number] #### [facility] [address] [place], [address] Lymphocytes/100 WBC (Bld) 25.1 % Normal 19-41 [facility] Comment on above: Order Comment: 111.2 Performed By: #### L [id number] #### [facility] [address] [place], [address] MCH (RBC) [Entitic mass] 30.0 pg Normal 27.0-32.0 [facility] Comment on above: Order Comment: 111.2 Performed By: #### L [id number] #### [facility] [address] [place], [address] MCHC (RBC) [Mass/Vol] 33.1 g/dL Normal 32-36 [facility] Comment on above: Order Comment: 111.2 Performed By: #### L [id number] #### [facility] [address] [place], [address] MCV (RBC) [Entitic vol] 90.8 fL Normal 80-94 [facility] Comment on above: Order Comment: 111.2 Performed By: #### L [id number] #### [facility] [address] [place], [address] Monocytes/100 WBC (Bld) 9.4 % Normal 0-10 [facility] Comment on above: Order Comment: 111.2 Performed By: #### L [id number] #### [facility] [address] [place], [address] Neutrophils/100 WBC (Bld) 58.6 % Normal 47-70 [facility] Comment on above: Order Comment: 111.2 Performed By: #### L [id number] #### [facility] [address] [place], [address] Nucleated RBC (Bld) [#/Vol] 0 10*3/uL Normal 0-5 [facility] Comment on above: Order Comment: 111.2 Performed By: #### L [id number] #### [facility] [address] [place], [address] Platelet mean volume (Bld) [Entitic vol] 9.5 fL Normal 6.2-12.0 [facility] Comment on above: Order Comment: 111.2 Performed By: #### L [id number] #### [facility] [address] [place], [address] Platelets (Bld) [#/Vol] 247 10*3/uL Normal 150-450 [facility] Comment on above: Order Comment: 111.2 Performed By: #### L [id number] #### [facility] [address] [place], [address] RBC (Bld) [#/Vol] 4.46 10*6/uL Low 4.6-6.2 [facility] Comment on above: Order Comment: 111.2 Performed By: #### L [id number] #### [facility] [address] [place], [address] RDW SD 41.9 fl Normal 35.1-43.9 [facility] Comment on above: Order Comment: 111.2 Performed By: #### L [id number] #### [facility] [address] [place], [address] WBC (Bld) [#/Vol] 9.6 10*3/uL Normal 4.4-11.0 [facility] Comment on above: Order Comment: 111.2 Performed By: #### L [id number] #### [facility] [address] [place], [address] Carbon dioxide measurementOr dered By: Adam Ferraro on 01-02-2025 CO2 [Moles/Vol] 25.0 mmol/L 21.0-32.0 [facility] Chloride measurementOrdered By: Adam Ferraro on 01-02-2025 Chloride [Moles/Vol] 109 mmol/L High 98-107 [facility] Comprehensive Metabolic Prof ilon 01-02-2025 Albumin [Mass/Vol] 3.1 g/dL Low 3.2-5.0 [facility] Comment on above: Order Comment: 111.2 Performed By: #### L [id number] #### [facility] [address] [place], [address] Albumin/Globulin [Mass ratio] 1.0 {ratio} Normal 0.9-2.4 [facility] Comment on above: Order Comment: 111.2 Performed By: #### L [id number] #### [facility] [address] [place], [address] ALK P 81 U/L Normal 45-117 [facility] Comment on above: Order Comment: 111.2 Performed By: #### L [id number] #### [facility] [address] [place], [address] ALT [Catalytic activity/Vol] 17 U/L Normal 16-61 [facility] Comment on above: Order Comment: 111.2 Performed By: #### L [id number] #### [facility] [address] [place], [address] AST [Catalytic activity/Vol] 12 U/L Low 15-37 [facility] Comment on above: Order Comment: 111.2 Performed By: #### L [id number] #### [facility] [address] [place], [address] Bilirubin [Mass/Vol] 0.30 mg/dL Normal 0.20-1.00 [facility] Comment on above: Order Comment: 111.2 Result Comment: For patients on eltrombopag therapy, use of Dimension Waka TBIL is not recommended. Performed By: #### L [id number] #### [facility] [address] [place], [address] BUN/CRE 12.6 RATIO Normal 10-20 [facility] Comment on above: Order Comment: 111.2 Performed By: #### L [id number] #### [facility] [address] [place], [address] CA,Total 9.4 mg/dL Normal 8.5-10.1 [facility] Comment on above: Order Comment: 111.2 Performed By: #### L [id number] #### [facility] [address] [place], [address] Chloride [Moles/Vol] 109 mmol/L High 98-107 [facility] Comment on above: Order Comment: 111.2 Performed By: #### L [id number] #### [facility] [address] [place], [address] CO2 [Moles/Vol] 25.0 mmol/L Normal 21.0-32.0 [facility] Comment on above: Order Comment: 111.2 Performed By: #### L 501.1400 #### [facility] [address] [place], [address] Creatinine [Mass/Vol] 2.14 mg/dL High 0.70-1.30 [facility] Comment on above: Order Comment: 111.2 Result Comment: The validity of the calculated GFR GFRAA in patients over 70 years has not been determined. Clinical correlation is essential. Performed By: #### L 501.1400 #### [facility] [address] [place], [address] EST GFR - AA 41 mL/min Low >60 [facility] Comment on above: Order Comment: 111.2 Result Comment: Afri can Prydeinig GFR Calc Performed By: #### L 501.1400 #### [facility] [address] [place], [address] GAP 7 Normal 5-15 [facility] Comment on above: Order Comment: 111.2 Performed By: #### L [id number] #### [facility] [address] [place], [address] GFR/1.73 sq M.predicted among non-blacks MDRD (S/P/Bld) [Vol rate/Area] 34 mL/min/{1.73_m2} Low >60 [facility] Comment on above: Order Comment: 111.2 Result Comment: Non- GFR Calc Performed By: #### L 501.1400 #### [facility] [address] [place], [address] Globulin (S) [Mass/Vol] 3.1 g/dL Normal 2.2-4.2 [facility] Comment on above: Order Comment: 111.2 Performed By: #### L 501.1400 #### [facility] [address] [place], [address] Glucose [Mass/Vol] 115 mg/dL High 74-106 [facility] Comment on above: Order Comment: 111.2 Result Comment: Fast ing Glucose result from 100 to 125 mg/dL suggests IMPAIRED HOMEOSTASIS per A.D.A. criteria. Performed By: #### L 501.1400 #### [facility] [address] [place], [address] Potassium [Moles/Vol] 4.1 mmol/L Normal 3.5-5.1 [facility] Comment on above: Order Comment: 111.2 Performed By: #### L 501.1400 #### [facility] [address] [place], [address] Sodium [Moles/Vol] 141 mmol/L Normal 136-145 [facility] Comment on above: Order Comment: 111.2 Performed By: #### L 501.1400 #### [facility] [address] [place], [address] T PROT 6.2 g/dL Low 6.4-8.2 [facility] Comment on above: Order Comment: 111.2 Performed By: #### L 501.1400 #### [facility] [address] [place], [address] Urea nitrogen [Mass/Vol] 27 mg/dL High 7-18 [facility] Comment on above: Order Comment: 111.2 Performed By: #### L 501.1400 #### [facility] [address] [place], [address] Eosinophil percentageOrdered By: Adam Ferraro on 01-02-2025 Eosinophils/100 WBC (Bld) 5.3 % High 0-5 [facility] Erythrocyte distribution wid th ratioOrdered By: Adam Ferraro on 01-02-2025 Erythrocyte distribution width (RBC) [Ratio] 12.9 % 11.6-14.6 [facility] Erythrocyte distribution wid th standard deviationOrdered By: Adam Ferraro on 01-02-2025 Erythrocyte distribution width (RBC) [Entitic vol] 41.9 fL 35.1-43.9 [facility] Erythrocyte distribution width (RBC) [Ratio] 41.9 fl 35.1-43.9 [facility] Estimated glomerular filtrat ion rate (GFR) AmericanOrdered By: Adam Ferraro on 01-02-2025 Estimated GFR (MDRD) Amer 41 mL/min Low >60 [facility] Comment on above: GFR Calc Glomerular filtration rate ( GFR) estimationOrdered By: Adam Ferraro on 01-02-2025 Estimated GFR (MDRD) Non-Af Amer 34 mL/min Low >60 [facility] Comment on above: Non- GFR Calc GFR/1.73 sq M.predicted among non-blacks MDRD (S/P/Bld) [Vol rate/Area] 34 mL/min/{1.73_m2} Low >60 [facility] Comment on above: Non- GFR Calc Glucose measurementOrdered B y: Adam Ferraro on 01-02-2025 Glucose [Mass/Vol] 115 mg/dL High 74-106 [facility] Comment on above: Fasting Glucose resu lt from 100 to 125 mg/dL suggests IMPAIRED HOMEOSTASIS per A.D.A. criteria. Hematocrit Auto (Bld) [Volum e fraction]Ordered By: Adam Ferraro on 01-02-2025 Hematocrit (Bld) [Volume fraction] 40.5 % 40-54 [facility] Hemoglobin measurementOrdere d By: Adam Ferraro on 01-02-2025 Hemoglobin (Bld) [Mass/Vol] 13.4 g/dL 13.0-16.5 [facility] Immature granulocytes/100 WB C Auto (Bld)Ordered By: Adam Ferraro on 01-02-2025 Immature granulocytes/100 WBC (Bld) 0.500 % 0.0-0.9 [facility] Comment on above: IG% - Immature Granu locytes (promyelocytes, myelocytes and metamyelocytes) > 1% indicates that a LEFT SHIFT is Present. Laboratory - Chemistry and C hemistry - challengeOrdered By: Adam Ferraro on 01-02-2025 AST [Catalytic activity/Vol] 12 U/L Low 15-37 [facility] Lithiumon 01-02-2025 LI 0.60 mmol/L Normal 0.60-1.20 [facility] Comment on above: Order Comment: 111.2 Performed By: #### L 501.1400 #### [facility] [address] [place], [address] [place] levelOrdered By: Benoit Ferraro on 01-02-2025 [place] Level 0.60 mmol/L 0.60-1.20 [facility] Lymphocytes Auto (Unsp spec) [#/Vol]Ordered By: Adam Ferraro on 01-02-2025 Lymphocytes (Bld) [#/Vol] 2.41 10*3/uL 0.83-4.51 [facility] Lymphocytes/100 WBC Auto (Un sp spec)Ordered By: Adam Ferraro on 01-02-2025 Lymphocytes/100 WBC (Bld) 25.1 % 19-41 [facility] MCV (mean corpuscular volume ) determinationOrdered By: Adam Ferraro on 01-02-2025 MCV (RBC) [Entitic vol] 90.8 fL 80-94 [facility] Mean corpuscular hemoglobin (MCH) determinationOrdered By: Adam Ferraro on 01-02-2025 MCH (RBC) [Entitic mass] 30.0 pg 27.0-32.0 [facility] Mean corpuscular hemoglobin concentration (MCHC) determinationOrdered By: Adam Ferraro on 01-02-2025 MCHC (RBC) [Mass/Vol] 33.1 g/dL 32-36 [facility] Mean platelet volume determi nationOrdered By: Adam Ferraro on 01-02-2025 Platelet mean volume (Bld) [Entitic vol] 9.5 fL 6.2-12.0 [facility] Monocyte percentageOrdered B y: Adam Ferraro on 01-02-2025 Monocytes/100 WBC (Bld) 9.4 % 0-10 [facility] Neutrophil percentageOrdered By: Adam Ferraro on 01-02-2025 Neutrophils/100 WBC (Bld) 58.6 % 47-70 [facility] Nucleated red blood cell per centageOrdered By: Adam Ferraro on 01-02-2025 Nucleated RBC/100 WBC (Bld) [Ratio] 0 % 0-5 [facility] Phosphoruson 01-02-2025 Phosphate [Mass/Vol] 4.7 mg/dL Normal 2.5-4.9 [facility] Comment on above: Order Comment: 111.2 Performed By: #### L 501.1400 #### [facility] [address] [place], [address] Phosphorus measurementOrdere d By: Adam Ferraro on 01-02-2025 Phosphorus Level 4.7 mg/dL 2.5-4.9 [facility] Platelet countOrdered By: Sabino Ferraro on 01-02-2025 Platelets (Bld) [#/Vol] 247 10*3/uL 150-450 [facility] Potassium measurementOrdered By: Adam Ferraro on 01-02-2025 Potassium [Moles/Vol] 4.1 mmol/L 3.5-5.1 [facility] RBC Auto (Bld) [#/Vol]Ordere d By: Adam Ferraro on 01-02-2025 RBC (Bld) [#/Vol] 4.46 10*6/uL Low 4.6-6.2 [facility] Serum anion gap measurementO rdered By: Adam Ferraro on 01-02-2025 Anion gap [Moles/Vol] 7 mmol/L 5-15 [facility] Serum globulin measurementOr dered By: Adam Ferraro on 01-02-2025 Globulin (S) [Mass/Vol] 3.1 g/dL 2.2-4.2 [facility] Serum or plasma alanine sesay otransferase (ALT) measurementOrdered By: Adam Ferraro on 01-02-2025 ALT [Catalytic activity/Vol] 17 U/L 16-61 [facility] Serum or plasma albumin you urement (mass/volume)Ordered By: Adam Ferraro on 01-02-2025 Albumin [Mass/Vol] 3.1 g/dL Low 3.2-5.0 [facility] Serum or plasma alkaline hal sphatase measurementOrdered By: Adam Ferraro on 01-02-2025 ALP [Catalytic activity/Vol] 81 U/L 45-117 [facility] Serum or plasma calcium you urement (mass/volume)Ordered By: Adam Ferraro on 01-02-2025 Calcium [Mass/Vol] 9.4 mg/dL 8.5-10.1 [facility] Serum or plasma creatinine m easurement (mass/volume)Ordered By: Adam Ferraro on 01-02-2025 Creatinine [Mass/Vol] 2.14 mg/dL High 0.70-1.30 [facility] Comment on above: The validity of the calculated GFR & GFRAA in patients over 70 years has not been determined. Clinical correlation is essential. Serum or plasma urea nitroge n measurement (mass/volume)Ordered By: Adam Ferraro on 01-02-2025 Urea nitrogen [Mass/Vol] 27 mg/dL High 7-18 [facility] Sodium levelOrdered By: Spike Ferraro on 01-02-2025 Sodium [Moles/Vol] 141 mmol/L 136-145 [facility] Total proteinOrdered By: Benoit Ferraro on 01-02-2025 Protein [Mass/Vol] 6.2 g/dL Low 6.4-8.2 [facility] White blood cell (WBC) count Ordered By: Adam Ferraro on 01-02-2025 WBC (Bld) [#/Vol] 9.6 10*3/uL 4.4-11.0 [facility] Albumin to globulin ratioOrd ered By: Adam Ferraro on 12-28-2024 Albumin/Globulin [Mass ratio] 0.9 {ratio} 0.9-2.4 [facility] Bilirubin, totalOrdered By: Adam Ferraro on 12-28-2024 Bilirubin [Mass/Vol] 0.30 mg/dL 0.20-1.00 [facility] Comment on above: For patients on eltr ombopag therapy, use of Dimension Waka TBIL is not recommended. Blood urea nitrogen (BUN)/cr eatinine ratioOrdered By: Adam Ferraro on 12-28-2024 Urea nitrogen/Creatinine [Mass ratio] 10.0 mg/mg 10-20 [facility] CBC-Complete Blood Cnt No Di ffon 12-28-2024 Erythrocyte distribution width (RBC) [Ratio] 13.1 % Normal 11.6-14.6 [facility] Comment on above: Order Comment: 111.2 Performed By: #### L 501.1400 #### [facility] [address] [place], [address] Hematocrit (Bld) [Volume fraction] 40.4 % Normal 40-54 [facility] Comment on above: Order Comment: 111.2 Performed By: #### L [id number] #### [facility] [address] [place], [address] Hemoglobin (Bld) [Mass/Vol] 13.2 g/dL Normal 13.0-16.5 [facility] Comment on above: Order Comment: 111.2 Performed By: #### L 501.1400 #### [facility] [address] [place], [address] MCH (RBC) [Entitic mass] 29.7 pg Normal 27.0-32.0 [facility] Comment on above: Order Comment: 111.2 Performed By: #### L [id number] #### [facility] [address] [place] [place], [address] MCHC (RBC) [Mass/Vol] 32.7 g/dL Normal 32-36 [facility] Comment on above: Order Comment: 111.2 Performed By: #### L 501.1400 #### [facility] [address] [place], [address] MCV (RBC) [Entitic vol] 91.0 fL Normal 80-94 [facility] Comment on above: Order Comment: 111.2 Performed By: #### L [id number] #### [facility] [address] [place], [address] Platelet mean volume (Bld) [Entitic vol] 9.3 fL Normal 6.2-12.0 [facility] Comment on above: Order Comment: 111.2 Performed By: #### L [id number] #### [facility] [address] [place], [address] Platelets (Bld) [#/Vol] 248 10*3/uL Normal 150-450 [facility] Comment on above: Order Comment: 111.2 Performed By: #### L [id number] #### [facility] [address] [place], [address] RBC (Bld) [#/Vol] 4.44 10*6/uL Low 4.6-6.2 [facility] Comment on above: Order Comment: 111.2 Performed By: #### L [id number] #### [facility] [address] [place], [address] RDW SD 42.4 fl Normal 35.1-43.9 [facility] Comment on above: Order Comment: 111.2 Performed By: #### L [id number] #### [facility] [address] [place], [address] WBC (Bld) [#/Vol] 10.5 10*3/uL Normal 4.4-11.0 [facility] Comment on above: Order Comment: 111.2 Performed By: #### L [id number] #### [facility] [address] [place], [address] Carbon dioxide measurementOr dered By: Adam Ferraro on 12-28-2024 CO2 [Moles/Vol] 25.0 mmol/L 21.0-32.0 [facility] Chloride measurementOrdered By: Adam Ferraro on 12-28-2024 Chloride [Moles/Vol] 110 mmol/L High 98-107 [facility] Comprehensive Metabolic Prof ilon 12-28-2024 Albumin [Mass/Vol] 3.0 g/dL Low 3.2-5.0 [facility] Comment on above: Order Comment: 111.2 Performed By: #### L 501.0900 #### [facility] [address] [place], [address] Albumin/Globulin [Mass ratio] 0.9 {ratio} Normal 0.9-2.4 [facility] Comment on above: Order Comment: 111.2 Performed By: #### L 501.0900 #### [facility] [address] [place], [address] ALK P 81 U/L Normal 45-117 [facility] Comment on above: Order Comment: 111.2 Performed By: #### L [id number] #### [facility] [address] [place], [address] ALT [Catalytic activity/Vol] 20 U/L Normal 16-61 [facility] Comment on above: Order Comment: 111.2 Performed By: #### L 501.0900 #### [facility] [address] [place], [address] AST [Catalytic activity/Vol] 11 U/L Low 15-37 [facility] Comment on above: Order Comment: 111.2 Performed By: #### L 501.0900 #### [facility] [address] [place], [address] Bilirubin [Mass/Vol] 0.30 mg/dL Normal 0.20-1.00 [facility] Comment on above: Order Comment: 111.2 Result Comment: For patients on eltrombopag therapy, use of Dimension Waka TBIL is not recommended. Performed By: #### L 501.0900 #### [facility] [address] [place], [address] BUN/CRE 10.0 RATIO Normal 10-20 [facility] Comment on above: Order Comment: 111.2 Performed By: #### L [id number] #### [facility] [address] [place], [address] CA,Total 9.3 mg/dL Normal 8.5-10.1 [facility] Comment on above: Order Comment: 111.2 Performed By: #### L [id number] #### [facility] [address] [place], [address] Chloride [Moles/Vol] 110 mmol/L High 98-107 [facility] Comment on above: Order Comment: 111.2 Performed By: #### L [id number] #### [facility] [address] [place], [address] CO2 [Moles/Vol] 25.0 mmol/L Normal 21.0-32.0 [facility] Comment on above: Order Comment: 111.2 Performed By: #### L 501.0900 #### [facility] [address] [place], [address] Creatinine [Mass/Vol] 2.09 mg/dL High 0.70-1.30 [facility] Comment on above: Order Comment: 111.2 Result Comment: The validity of the calculated GFR GFRAA in patients over 70 years has not been determined. Clinical correlation is essential. Performed By: #### L 501.0900 #### [facility] [address] [place], [address] EST GFR - AA 42 mL/min Low >60 [facility] Comment on above: Order Comment: 111.2 Result Comment: Afri can Prydeinig GFR Calc Performed By: #### L 501.0900 #### [facility] [address] [place], [address] GAP 6 Normal 5-15 [facility] Comment on above: Order Comment: 111.2 Performed By: #### L [id number] #### [facility] [address] [place], [address] GFR/1.73 sq M.predicted among non-blacks MDRD (S/P/Bld) [Vol rate/Area] 34 mL/min/{1.73_m2} Low >60 [facility] Comment on above: Order Comment: 111.2 Result Comment: Non- GFR Calc Performed By: #### L 501.0900 #### [facility] [address] [place], [address] Globulin (S) [Mass/Vol] 3.4 g/dL Normal 2.2-4.2 [facility] Comment on above: Order Comment: 111.2 Performed By: #### L [id number] #### [facility] [address] [place], [address] Glucose [Mass/Vol] 119 mg/dL High 74-106 [facility] Comment on above: Order Comment: 111.2 Result Comment: Fast ing Glucose result from 100 to 125 mg/dL suggests IMPAIRED HOMEOSTASIS per A.D.A. criteria. Performed By: #### L [id number] #### [facility] [address] [place], [address] Potassium [Moles/Vol] 4.3 mmol/L Normal 3.5-5.1 [facility] Comment on above: Order Comment: 111.2 Performed By: #### L [id number] #### [facility] [address] [place], [address] Sodium [Moles/Vol] 141 mmol/L Normal 136-145 [facility] Comment on above: Order Comment: 111.2 Performed By: #### L [id number] #### [facility] [address] [place], [address] T PROT 6.4 g/dL Normal 6.4-8.2 [facility] Comment on above: Order Comment: 111.2 Performed By: #### L [id number] #### [facility] [address] [place], [address] Urea nitrogen [Mass/Vol] 21 mg/dL High 7-18 [facility] Comment on above: Order Comment: 111.2 Performed By: #### L [id number] #### [facility] [address] [place], [address] Erythrocyte distribution wid th ratioOrdered By: Adam Ferraro on 12-28-2024 Erythrocyte distribution width (RBC) [Ratio] 13.1 % 11.6-14.6 [facility] Erythrocyte distribution wid th standard deviationOrdered By: Adam Ferraro on 12-28-2024 Erythrocyte distribution width (RBC) [Entitic vol] 42.4 fL 35.1-43.9 [facility] Erythrocyte distribution width (RBC) [Ratio] 42.4 fl 35.1-43.9 [facility] Estimated glomerular filtrat ion rate (GFR) AmericanOrdered By: Adam Ferraro on 12-28-2024 Estimated GFR (MDRD) Amer 42 mL/min Low >60 [facility] Comment on above: GFR Calc Glomerular filtration rate ( GFR) estimationOrdered By: Adam Ferraro on 12-28-2024 Estimated GFR (MDRD) Non-Af Amer 34 mL/min Low >60 [facility] Comment on above: Non- GFR Calc GFR/1.73 sq M.predicted among non-blacks MDRD (S/P/Bld) [Vol rate/Area] 34 mL/min/{1.73_m2} Low >60 [facility] Comment on above: Non- GFR Calc Glucose measurementOrdered B y: Adam Ferraro on 12-28-2024 Glucose [Mass/Vol] 119 mg/dL High 74-106 [facility] Comment on above: Fasting Glucose resu lt from 100 to 125 mg/dL suggests IMPAIRED HOMEOSTASIS per A.D.A. criteria. Hematocrit Auto (Bld) [Volum e fraction]Ordered By: Adam Ferraro on 12-28-2024 Hematocrit (Bld) [Volume fraction] 40.4 % 40-54 [facility] Hemoglobin measurementOrdere d By: Adam Ferraro on 12-28-2024 Hemoglobin (Bld) [Mass/Vol] 13.2 g/dL 13.0-16.5 [facility] - Chemistry and C hemistry - challengeOrdered By: Adam Ferraro on 12-28-2024 AST [Catalytic activity/Vol] 11 U/L Low 15-37 [facility] MCV (mean corpuscular volume ) determinationOrdered By: Adam Ferraro on 12-28-2024 MCV (RBC) [Entitic vol] 91.0 fL 80-94 [facility] Mean corpuscular hemoglobin (MCH) determinationOrdered By: Adam Ferraro on 12-28-2024 MCH (RBC) [Entitic mass] 29.7 pg 27.0-32.0 [facility] Mean corpuscular hemoglobin concentration (MCHC) determinationOrdered By: Adam Ferraro on 12-28-2024 MCHC (RBC) [Mass/Vol] 32.7 g/dL 32-36 [facility] Mean platelet volume determi nationOrdered By: Adam Ferraro on 12-28-2024 Platelet mean volume (Bld) [Entitic vol] 9.3 fL 6.2-12.0 [facility] Platelet countOrdered By: Sabino Ferraro on 12-28-2024 Platelets (Bld) [#/Vol] 248 10*3/uL 150-450 [facility] Potassium measurementOrdered By: Adam Ferraro on 12-28-2024 Potassium [Moles/Vol] 4.3 mmol/L 3.5-5.1 [facility] RBC Auto (Bld) [#/Vol]Ordere d By: Adam Ferraro on 12-28-2024 RBC (Bld) [#/Vol] 4.44 10*6/uL Low 4.6-6.2 [facility] Serum anion gap measurementO rdered By: Adam Ferraro on 12-28-2024 Anion gap [Moles/Vol] 6 mmol/L 5-15 [facility] Serum globulin measurementOr dered By: Adam Ferraro on 12-28-2024 Globulin (S) [Mass/Vol] 3.4 g/dL 2.2-4.2 [facility] Serum or plasma alanine sesay otransferase (ALT) measurementOrdered By: Adam Ferraro on 12-28-2024 ALT [Catalytic activity/Vol] 20 U/L 16-61 [facility] Serum or plasma albumin you urement (mass/volume)Ordered By: Adam Ferraro on 12-28-2024 Albumin [Mass/Vol] 3.0 g/dL Low 3.2-5.0 [facility] Serum or plasma alkaline hal sphatase measurementOrdered By: Adam Ferraro 12-28-2024 ALP [Catalytic activity/Vol] 81 U/L 45-117 [facility] Serum or plasma calcium you urement (mass/volume)Ordered By: Adam Ferraro on 12-28-2024 Calcium [Mass/Vol] 9.3 mg/dL 8.5-10.1 [facility] Serum or plasma creatinine m easurement (mass/volume)Ordered By: Adam Ferraro on 12-28-2024 Creatinine [Mass/Vol] 2.09 mg/dL High 0.70-1.30 [facility] Comment on above: The validity of the calculated GFR & GFRAA in patients over 70 years has not been determined. Clinical correlation is essential. Serum or plasma urea nitroge n measurement (mass/volume)Ordered By: Adam Ferraro on 12-28-2024 Urea nitrogen [Mass/Vol] 21 mg/dL High 7-18 [facility] Serum or plasma uric acid me asurement (mass/volume)Ordered By: Adam Ferraro on 12-28-2024 Urate [Mass/Vol] 5.8 mg/dL 3.5-7.2 [facility] Comment on above: The drugs N-Acetylcy steine and Metamizole may falsely depress this assay. Sodium levelOrdered By: Spike Ferraro on 12-28-2024 Sodium [Moles/Vol] 141 mmol/L 136-145 [facility] Total proteinOrdered By: Benoit Ferraro on 12-28-2024 Protein [Mass/Vol] 6.4 g/dL 6.4-8.2 [facility] Uric Acidon 12-28-2024 URIC 5.8 mg/dL Normal 3.5-7.2 [facility] Comment on above: Order Comment: 111.2 Result Comment: The drugs N-Acetylcysteine and Metamizole may falsely depress this assay. Performed By: #### L [id number] #### [facility] [address] [place], [place] [address], [address] White blood cell (WBC) count Ordered By: Adam Ferraro on 12-28-2024 WBC (Bld) [#/Vol] 10.5 10*3/uL 4.4-11.0 [facility] Serum or plasma uric acid me asurement (mass/volume)Ordered By: Adam Ferraro on 11-27-2024 Urate [Mass/Vol] 5.8 mg/dL 3.5-7.2 [facility] Comment on above: The drugs N-Acetylcy steine and Metamizole may falsely depress this assay. Uric Acidon 11-27-2024 URIC 5.8 mg/dL Normal 3.5-7.2 [facility] Comment on above: Order Comment: 111.2 Result Comment: The drugs N-Acetylcysteine and Metamizole may falsely depress this assay. Performed By: #### L [id number] #### [facility] [address] [place], [address] Absolute neutrophil countOrd ered By: Adam Ferraro on 11-15-2024 Neutrophils (Bld) [#/Vol] 6.8 10*3/uL 2.0-7.7 [facility] Basic Metabolic Profile (BMP )on 11-15-2024 BUN/CRE 10.0 RATIO Normal 10-20 [facility] Comment on above: Order Comment: 111.2 Performed By: #### L [id number] #### [facility] [address] [place], [address] CA,Total 9.6 mg/dL Normal 8.5-10.1 [facility] Comment on above: Order Comment: 111.2 Performed By: #### L [id number] #### [facility] [address] [place], [address] Chloride [Moles/Vol] 108 mmol/L High 98-107 [facility] Comment on above: Order Comment: 111.2 Performed By: #### L [id number] #### [facility] [address] [place], [address] CO2 [Moles/Vol] 23.0 mmol/L Normal 21.0-32.0 [facility] Comment on above: Order Comment: 111.2 Performed By: #### L [id number] #### [facility] [address] [place], [address] Creatinine [Mass/Vol] 2.30 mg/dL High 0.70-1.30 [facility] Comment on above: Order Comment: 111.2 Result Comment: The validity of the calculated GFR GFRAA in patients over 70 years has not been determined. Clinical correlation is essential. Performed By: #### L [id number] #### [facility] [address] [place], [address] EST GFR - AA 37 mL/min Low >60 [facility] Comment on above: Order Comment: 111.2 Result Comment: Afri can Prydeinig GFR Calc Performed By: #### L [id number] #### [facility] [address] [place], [address] GAP 8 Normal 5-15 [facility] Comment on above: Order Comment: 111.2 Performed By: #### L [id number] #### [facility] [address] [place], [address] GFR/1.73 sq M.predicted among non-blacks MDRD (S/P/Bld) [Vol rate/Area] 31 mL/min/{1.73_m2} Low >60 [facility] Comment on above: Order Comment: 111.2 Result Comment: Non- GFR Calc Performed By: #### L [id number] #### [facility] [address] [place], [address] Glucose [Mass/Vol] 114 mg/dL High 74-106 [facility] Comment on above: Order Comment: 111.2 Result Comment: Fast ing Glucose result from 100 to 125 mg/dL suggests IMPAIRED HOMEOSTASIS per A.D.A. criteria. Performed By: #### L [id number] #### [facility] [address] [place], [address] Potassium [Moles/Vol] 4.2 mmol/L Normal 3.5-5.1 [facility] Comment on above: Order Comment: 111.2 Performed By: #### L [id number] #### [facility] [address] [place], [address] Sodium [Moles/Vol] 140 mmol/L Normal 136-145 [facility] Comment on above: Order Comment: 111.2 Performed By: #### L [id number] #### [facility] [address] [place], [address] Urea nitrogen [Mass/Vol] 23 mg/dL High 7-18 [facility] Comment on above: Order Comment: 111.2 Performed By: #### L [id number] #### [facility] [address] [place], [address] Basophil percentageOrdered B y: Adam Ferraro on 11-15-2024 Basophils/100 WBC (Bld) 1.2 % High 0-1 [facility] Blood urea nitrogen (BUN)/cr eatinine ratioOrdered By: Adam Ferraro on 11-15-2024 Urea nitrogen/Creatinine [Mass ratio] 10.0 mg/mg 10-20 [facility] CBC W/Diff, Automatedon 0 Absolute Lymph 2.67 X10 3/uL Normal 0.83-4.51 [facility] Comment on above: Order Comment: 111.2 Performed By: #### L [id number] #### [facility] [address] [place], [address] Absolute Neut 6.8 X10 3/uL Normal 2.0-7.7 [facility] Comment on above: Order Comment: 111.2 Performed By: #### L [id number] #### [facility] [address] [place], [address] Basophils/100 WBC (Bld) 1.2 % High 0-1 [facility] Comment on above: Order Comment: 111.2 Performed By: #### L [id number] #### [facility] [address] [place], [address] Eosinophils/100 WBC (Bld) 4.6 % Normal 0-5 [facility] Comment on above: Order Comment: 111.2 Performed By: #### L [id number] #### [facility] [address] [place], [address] Erythrocyte distribution width (RBC) [Ratio] 12.9 % Normal 11.6-14.6 [facility] Comment on above: Order Comment: 111.2 Performed By: #### L [id number] #### [facility] [address] [place], [address] Hematocrit (Bld) [Volume fraction] 41.5 % Normal 40-54 [facility] Comment on above: Order Comment: 111.2 Performed By: #### L [id number] #### [facility] [address] [place], [address] Hemoglobin (Bld) [Mass/Vol] 13.6 g/dL Normal 13.0-16.5 [facility] Comment on above: Order Comment: 111.2 Performed By: #### L [id number] #### [facility] [address] [place], [address] IG% 0.500 Normal 0.0-0.9 [facility] Comment on above: Order Comment: 111.2 Result Comment: IG% - Immature Granulocytes (promyelocytes, myelocytes and metamyelocytes) > 1% indicates that a LEFT SHIFT is Present. Performed By: #### L [id number] #### [facility] [address] [place], [address] Lymphocytes/100 WBC (Bld) 23.8 % Normal 19-41 [facility] Comment on above: Order Comment: 111.2 Performed By: #### L [id number] #### [facility] [address] [place], [address] MCH (RBC) [Entitic mass] 29.9 pg Normal 27.0-32.0 [facility] Comment on above: Order Comment: 111.2 Performed By: #### L [id number] #### [facility] [address] [place], [address] MCHC (RBC) [Mass/Vol] 32.8 g/dL Normal 32-36 [facility] Comment on above: Order Comment: 111.2 Performed By: #### L [id number] #### [facility] [address] [place], [address] MCV (RBC) [Entitic vol] 91.2 fL Normal 80-94 [facility] Comment on above: Order Comment: 111.2 Performed By: #### [id number] #### [facility] [address] [place], [address] Monocytes/100 WBC (Bld) 9.8 % Normal 0-10 [facility] Comment on above: Order Comment: 111.2 Performed By: #### [id number] #### [facility] [address] [place], [address] Neutrophils/100 WBC (Bld) 60.1 % Normal 47-70 [facility] Comment on above: Order Comment: 111.2 Performed By: #### L [id number] #### [facility] [address] [place], [address] Nucleated RBC (Bld) [#/Vol] 0 10*3/uL Normal 0-5 [facility] Comment on above: Order Comment: 111.2 Performed By: #### L [id number] #### [facility] [address] [place], [address] Platelet mean volume (Bld) [Entitic vol] 9.5 fL Normal 6.2-12.0 [facility] Comment on above: Order Comment: 111.2 Performed By: #### L [id number] #### [facility] [address] [place], [address] Platelets (Bld) [#/Vol] 257 10*3/uL Normal 150-450 [facility] Comment on above: Order Comment: 111.2 Performed By: #### L [id number] #### [facility] [address] [place], [address] RBC (Bld) [#/Vol] 4.55 10*6/uL Low 4.6-6.2 [facility] Comment on above: Order Comment: 111.2 Performed By: #### L [id number] #### [facility] [address] [place], [address] RDW SD 42.9 fl Normal 35.1-43.9 [facility] Comment on above: Order Comment: 111.2 Performed By: #### L [id number] #### [facility] [address] [place], [address] WBC (Bld) [#/Vol] 11.2 10*3/uL High 4.4-11.0 [facility] Comment on above: Order Comment: 111.2 Performed By: #### L [id number] #### [facility] [address] [place], [address] Carbon dioxide measurementOr dered By: Adam Ferraro on 11-15-2024 CO2 [Moles/Vol] 23.0 mmol/L 21.0-32.0 [facility] Chloride measurementOrdered By: Adam Ferraro on 11-15-2024 Chloride [Moles/Vol] 108 mmol/L High 98-107 [facility] Eosinophil percentageOrdered By: Adam Ferraro on 11-15-2024 Eosinophils/100 WBC (Bld) 4.6 % 0-5 [facility] Erythrocyte distribution wid th ratioOrdered By: Adam Ferraro on 11-15-2024 Erythrocyte distribution width (RBC) [Ratio] 12.9 % 11.6-14.6 [facility] Erythrocyte distribution wid th standard deviationOrdered By: Adam Ferraro on 11-15-2024 Erythrocyte distribution width (RBC) [Entitic vol] 42.9 fL 35.1-43.9 [facility] Estimated glomerular filtrat ion rate (GFR) AmericanOrdered By: Adam Ferraro on 11-15-2024 Estimated GFR (MDRD) Amer 37 mL/min Low >60 [facility] Comment on above: GFR Calc Glomerular filtration rate ( GFR) estimationOrdered By: Adam Ferraro on 11-15-2024 Estimated GFR (MDRD) Non-Af Amer 31 mL/min Low >60 [facility] Comment on above: Non- GFR Calc Glucose measurementOrdered B y: Adam Ferraro on 11-15-2024 Glucose [Mass/Vol] 114 mg/dL High 74-106 [facility] Comment on above: Fasting Glucose resu lt from 100 to 125 mg/dL suggests IMPAIRED HOMEOSTASIS per A.D.A. criteria. Hematocrit Auto (Bld) [Volum e fraction]Ordered By: Adam Ferraro on 11-15-2024 Hematocrit (Bld) [Volume fraction] 41.5 % 40-54 [facility] Hemoglobin measurementOrdere d By: Adam Ferraro on 11-15-2024 Hemoglobin (Bld) [Mass/Vol] 13.6 g/dL 13.0-16.5 [facility] Immature granulocytes/100 WB C Auto (Bld)Ordered By: Adam Ferraro on 11-15-2024 Immature granulocytes/100 WBC (Bld) 0.500 % 0.0-0.9 [facility] Comment on above: IG% - Immature Granu locytes (promyelocytes, myelocytes and metamyelocytes) > 1% indicates that a LEFT SHIFT is Present. Lithiumon 11-15-2024 LI 0.60 mmol/L Normal 0.60-1.20 [facility] Comment on above: Order Comment: 111.2 [id number] Performed By: #### L [id number] #### [facility] [address] [place], [address] [place] levelOrdered By: Benoit Ferraro on 11-15-2024 [place] Level 0.60 mmol/L 0.60-1.20 [facility] Lymphocytes Auto (Unsp spec) [#/Vol]Ordered By: Adam Ferraro on 11-15-2024 Lymphocytes (Bld) [#/Vol] 2.67 10*3/uL 0.83-4.51 [facility] Lymphocytes/100 WBC Auto (Un sp spec)Ordered By: Adam Ferraro on 11-15-2024 Lymphocytes/100 WBC (Bld) 23.8 % 19-41 [facility] MCV (mean corpuscular volume ) determinationOrdered By: Adam Ferraro on 11-15-2024 MCV (RBC) [Entitic vol] 91.2 fL 80-94 [facility] Mean corpuscular hemoglobin (MCH) determinationOrdered By: Adam Ferraro on 11-15-2024 MCH (RBC) [Entitic mass] 29.9 pg 27.0-32.0 [facility] Mean corpuscular hemoglobin concentration (MCHC) determinationOrdered By: Adam Ferraro on 11-15-2024 MCHC (RBC) [Mass/Vol] 32.8 g/dL 32-36 [facility] Mean platelet volume determi nationOrdered By: Adam Ferraro on 11-15-2024 Platelet mean volume (Bld) [Entitic vol] 9.5 fL 6.2-12.0 [facility] Microalb:Creat Ratio,Random URon 11-15-2024 Creatinine [Mass/Vol] 50.60 mg/dL Normal NO RAN GE EST. [facility] Comment on above: Performed By: #### L [id number] #### [facility] [address] [place], [place], [address] MALB:CRE TNP Normal <30 mg/g CRE [facility] Comment on above: Performed By: #### L [id number] #### [facility] [address] [place], [place], [id number] MICROALBUMIN,UR < 5.0 Normal NO RANGE EST. [facility] Comment on above: Performed By: #### L [id number] #### [facility] [address] [place], [address] Monocyte percentageOrdered B y: Adam Ferraro on 11-15-2024 Monocytes/100 WBC (Bld) 9.8 % 0-10 [facility] Neutrophil percentageOrdered By: Adam Ferraro on 11-15-2024 Neutrophils/100 WBC (Bld) 60.1 % 47-70 [facility] Nucleated red blood cell per centageOrdered By: Adam Ferraro on 11-15-2024 Nucleated RBC/100 WBC (Bld) [Ratio] 0 % 0-5 [facility] Platelet countOrdered By: Sabino Ferraro on 11-15-2024 Platelets (Bld) [#/Vol] 257 10*3/uL 150-450 [facility] Potassium measurementOrdered By: Adam Ferraro on 11-15-2024 Potassium [Moles/Vol] 4.2 mmol/L 3.5-5.1 [facility] RBC Auto (Bld) [#/Vol]Ordere d By: Adam Ferraro on 11-15-2024 RBC (Bld) [#/Vol] 4.55 10*6/uL Low 4.6-6.2 [facility] Random urine microalbumin me asurementOrdered By: Adam Ferraro on 11-15-2024 Urine Random Microalbumin < 5.0 mg/L NO RANGE EST. [facility] Serum anion gap measurementO rdered By: Adam Ferraro on 11-15-2024 Anion gap [Moles/Vol] 8 mmol/L 5-15 [facility] Serum or plasma calcium you urement (mass/volume)Ordered By: Adam Ferraro on 11-15-2024 Calcium [Mass/Vol] 9.6 mg/dL 8.5-10.1 [facility] Serum or plasma creatinine m easurement (mass/volume)Ordered By: Adam Ferraro on 11-15-2024 Creatinine [Mass/Vol] 2.30 mg/dL High 0.70-1.30 [facility] Comment on above: The validity of the calculated GFR & GFRAA in patients over 70 years has not been determined. Clinical correlation is essential. Serum or plasma urea nitroge n measurement (mass/volume)Ordered By: Adam Ferraro on 11-15-2024 Urea nitrogen [Mass/Vol] 23 mg/dL High 7-18 [facility] Sodium levelOrdered By: Spike Ferraro on 11-15-2024 Sodium [Moles/Vol] 140 mmol/L 136-145 [facility] Urine albumin/creatinine rat io for detection of microalbuminuriaOrdered By: Adam Ferraro on 11-15-2024 Urine Microalbumin/Creatinine Ratio TNP [facility] Comment on above: Test not performed Urine creatinine measurement (mass/volume)Ordered By: Adam Ferraro on 11-15-2024 Creatinine (U) [Mass/Vol] 50.60 mg/dL NO RANGE EST. [facility] White blood cell (WBC) count Ordered By: Adam Ferraro on 11-15-2024 WBC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 on above: Order Comment: Speci men Type: BLOOD SPECIMEN Ordering Facility: [facility] Address: [address] [place] [address] Performed By: #### 5 7021-8 #### [facility] CLIA [id number] [address] [place] [address] [place] Glucose Test strip (U) [Mass/Vol] Negative Normal Negative [facility] Comment on above: Order Comment: Speci men Type: BLOOD SPECIMEN Ordering Facility: [facility] Address: [address] [place] [address] Performed By: #### 5 7021-8 #### [facility] CLIA [id number] [address] [place] [address] [place] Hemoglobin Ql (U) Negative Normal Negative [facility] Comment on above: Order Comment: Speci men Type: BLOOD SPECIMEN Ordering Facility: [facility] Address: [address] [place] [address] Performed By: #### 5 7021-8 #### [facility] CLIA [id number] [address] [place] [address] [place] Ketones Ql (U) Negative Normal Negative [facility] Comment on above: Order Comment: Speci men Type: BLOOD SPECIMEN Ordering Facility: [facility] Address: [address] [place] [address] Performed By: #### 5 7021-8 #### [facility] CLIA [id number] [address] [place] [address] [place] Leukocyte esterase Test strip Ql (U) Trace Abnormal Negative [facility] Comment on above: Order Comment: Speci men Type: BLOOD SPECIMEN Ordering Facility: [facility] Address: [address] [place] [address] Performed By: #### 5 7021-8 #### [facility] CLIA [id number] [address] [place] [address] [place] Nitrite Ql (U) Negative Normal Negative [facility] Comment on above: Order Comment: Speci men Type: BLOOD SPECIMEN Ordering Facility: [facility] Address: [address] [place] [address] Performed By: #### 5 7021-8 #### [facility] CLIA [id number] [address] [place] [address] [place] pH (U) 7.0 [pH] Normal <8.5 [facility] Comment on above: Order Comment: Speci men Type: BLOOD SPECIMEN Ordering Facility: [facility] Address: [address] [place] [address] Performed By: #### 5 7021-8 #### [facility] CLIA [id number] [address] [place] [address] [place] Protein (U) [Mass/Vol] Negative Normal Negative [facility] Comment on above: Order Comment: Speci men Type: BLOOD SPECIMEN Ordering Facility: [facility] Address: [address] [place] [address] Performed By: #### 5 7021-8 #### [facility] CLIA [id number] [address] [place] [address] [place] Specific gravity (U) [Rel density] 1.009 Normal 1.005-1.[address] [facility] Comment on above: Order Comment: Speci men Type: BLOOD SPECIMEN Ordering Facility: [facility] Address: [address] [place] [address] Performed By: #### 5 7021-8 #### [facility] CLIA [id number] [address] [place] [address] [place] Urobilinogen Ql (U) 0.2 EU/dL Normal 0.2-1.0 EU/dL [facility] Comment on above: Order Comment: Speci men Type: BLOOD SPECIMEN Ordering Facility: [facility] Address: [address] [place] [address] Performed By: #### 5 7021-8 #### [facility] CLIA [id number] [address] [place], [place] [id number] [address] [place] Liver Profileon 06-29-2024 Albumin [Mass/Vol] 3.2 g/dL Normal 3.2-5.0 [facility] Comment on above: Order Comment: 111.2 Performed By: #### L 500.3400 #### [facility] [address] [place], [address] ALK P 93 U/L Normal 45-117 [facility] Comment on above: Order Comment: 111.2 Performed By: #### L 500.3400 #### [facility] [address] [place], [address] ALT [Catalytic activity/Vol] 22 U/L Normal 16-61 [facility] Comment on above: Order Comment: 111.2 Performed By: #### L 500.3400 #### [facility] [address] [place], [address] AST [Catalytic activity/Vol] 11 U/L Low 15-37 [facility] Comment on above: Order Comment: 111.2 Performed By: #### L 500.3400 #### [facility] [address] [place], [address] Bilirubin [Mass/Vol] 0.20 mg/dL Normal 0.20-1.00 [facility] Comment on above: Order Comment: 111.2 Result Comment: For patients on eltrombopag therapy, use of Dimension Waka TBIL is not recommended. Performed By: #### L 500.3400 #### [facility] [address] [place], [address] Bilirubin.direct [Mass/Vol] 0.10 mg/dL Normal 0.00-0.30 [facility] Comment on above: Order Comment: 111.2 Performed By: #### L 500.3400 #### [facility] [address] [place], [address] Globulin (S) [Mass/Vol] 3.1 g/dL Normal 2.2-4.2 [facility] Comment on above: Order Comment: 111.2 Performed By: #### L 500.3400 #### [facility] [address] [place], [address] T PROT 6.3 g/dL Low 6.4-8.2 [facility] Comment on above: Order Comment: 111.2 Performed By: #### L 500.3400 #### [facility] [address] [place], [address] Uric Acidon 06-27-2024 URIC 5.5 mg/dL Normal 3.5-7.2 [facility] Comment on above: Order Comment: 111.2 Result Comment: The drugs N-Acetylcysteine and Metamizole may falsely depress this assay. Performed By: #### L 501.1400 #### [facility] [address] [place], [address] Protein+Creatinine Ratio,Uri neon 06-25-2024 PROT:CRE RATIO Normal 0-200 [facility] Comment on above: Order Comment: 111.2 Result Comment: PLAI N YELLOW TOP TUBE NOT COLLECTED Performed By: #### L 501.1400 #### [facility] [address] [place], [address] PROTEIN,UR.RAN. Normal <11.9 [facility] Comment on above: Order Comment: 111.2 Result Comment: PLAI N YELLOW TOP TUBE NOT COLLECTED Performed By: #### L 501.1400 #### [facility] [address] [place], [address] UR CREAT Normal NO RANGE EST. [facility] Comment on above: Order Comment: 111.2 Result Comment: PLAI N YELLOW TOP TUBE NOT COLLECTED Performed By: #### L 501.1400 #### [facility] [address] [place], [address] CBC W/Diff, Automatedon 08-0 9-4 Absolute Lymph 2.09 X10 3/uL Normal 0.83-4.51 [facility] Comment on above: Order Comment: 111.2 Performed By: #### L [id number] #### [facility] [address] [place], [address] Absolute Neut 5.3 X10 3/uL Normal 2.0-7.7 [facility] Comment on above: Order Comment: 111.2 Performed By: #### L [id number] #### [facility] [address] [place], [address] Basophils/100 WBC (Bld) 1.1 % High 0-1 [facility] Comment on above: Order Comment: 111.2 Performed By: #### L [id number] #### [facility] [address] [place], [address] Eosinophils/100 WBC (Bld) 5.4 % High 0-5 [facility] Comment on above: Order Comment: 111.2 Performed By: #### L 501.0900 #### [facility] [address] [place], [address] Erythrocyte distribution width (RBC) [Ratio] 13.0 % Normal 11.6-14.6 [facility] Comment on above: Order Comment: 111.2 Performed By: #### L 501.0900 #### [facility] [address] [place], [address] Hematocrit (Bld) [Volume fraction] 40.7 % Normal 40-54 [facility] Comment on above: Order Comment: 111.2 Performed By: #### L 501.0900 #### [facility] [address] [place], [address] Hemoglobin (Bld) [Mass/Vol] 13.1 g/dL Normal 13.0-16.5 [facility] Comment on above: Order Comment: 111.2 Performed By: #### L 501.0900 #### [facility] [address] [place], [address] IG% 0.300 Normal 0.0-0.9 [facility] Comment on above: Order Comment: 111.2 Result Comment: IG% - Immature Granulocytes (promyelocytes, myelocytes and metamyelocytes) > 1% indicates that a LEFT SHIFT is Present. Performed By: #### L 501.0900 #### [facility] [address] [place], [address] Lymphocytes/100 WBC (Bld) 23.7 % Normal 19-41 [facility] Comment on above: Order Comment: 111.2 Performed By: #### L [id number] #### [facility] [address] [place], [address] MCH (RBC) [Entitic mass] 29.5 pg Normal 27.0-32.0 [facility] Comment on above: Order Comment: 111.2 Performed By: #### L 501.0900 #### [facility] [address] [place], [address] MCHC (RBC) [Mass/Vol] 32.2 g/dL Normal 32-36 [facility] Comment on above: Order Comment: 111.2 Performed By: #### L 501.0900 #### [facility] [address] [place], [address] MCV (RBC) [Entitic vol] 91.7 fL Normal 80-94 [facility] Comment on above: Order Comment: 111.2 Performed By: #### L 501.0900 #### [facility] [address] [place], [address] Monocytes/100 WBC (Bld) 9.2 % Normal 0-10 [facility] Comment on above: Order Comment: 111.2 Performed By: #### L 501.0900 #### [facility] [address] [place], [address] Neutrophils/100 WBC (Bld) 60.3 % Normal 47-70 [facility] Comment on above: Order Comment: 111.2 Performed By: #### L 501.0900 #### [facility] [address] [place], [address] Nucleated RBC (Bld) [#/Vol] 0 10*3/uL Normal 0-5 [facility] Comment on above: Order Comment: 111.2 Performed By: #### L 501.0900 #### [facility] [address] [place], [address] Platelet mean volume (Bld) [Entitic vol] 9.5 fL Normal 6.2-12.0 [facility] Comment on above: Order Comment: 111.2 Performed By: #### L 501.0900 #### [facility] [address] [place], [address] Platelets (Bld) [#/Vol] 229 10*3/uL Normal 150-450 [facility] Comment on above: Order Comment: 111.2 Performed By: #### L [id number] #### [facility] [address] [place], [address] RBC (Bld) [#/Vol] 4.44 10*6/uL Low 4.6-6.2 [facility] Comment on above: Order Comment: 111.2 Performed By: #### L 501.0900 #### [facility] [address] [place], [address] RDW SD 43.2 fl Normal 35.1-43.9 [facility] Comment on above: Order Comment: 111.2 Performed By: #### L 501.0900 #### [facility] [address] [place], [address] WBC (Bld) [#/Vol] 8.8 10*3/uL Normal 4.4-11.0 [facility] Comment on above: Order Comment: 111.2 Performed By: #### L 501.0900 #### [facility] [address] [place], [address] Lithiumon 06-22-2024 LI 0.70 mmol/L Normal 0.60-1.20 [facility] Comment on above: Order Comment: 111.2 Performed By: #### L 501.2300, L500.4050, L100.0100 #### [facility] [address] [place], [address] Protein+Creatinine Ratio,Uri neon 06-22-2024 PROT:CRE RATIO Normal 0-200 [facility] Comment on above: Order Comment: 111.2 Result Comment: This specimen has been REJECTED due to Laboratory criteria: Quanity Not Sufficient. NEW URINE TO BE RECOLLECTED. WAS IN WRONG CONTAINER 06/23/24527 Geraldine Blevins Performed By: #### L 501.2300, L500.4050, L100.0100 #### [facility] [address] [place], [address] PROTEIN,UR.RAN. Normal <11.9 [facility] Comment on above: Order Comment: 111.2 Result Comment: This specimen has been REJECTED due to Laboratory criteria: Quanity Not Sufficient. NEW URINE TO BE RECOLLECTED. WAS IN WRONG CONTAINER 06/23/24527 Geraldine Blevins Performed By: #### L 501.2300, L500.4050, L100.0100 #### [facility] [address] [place], [address] UR CREAT Normal NO RANGE EST. [facility] Comment on above: Order Comment: 111.2 Result Comment: This specimen has been REJECTED due to Laboratory criteria: Quanity Not Sufficient. NEW URINE TO BE RECOLLECTED. WAS IN WRONG CONTAINER 06/23/24 0528 Geraldine Blevins Performed By: #### L 501.2300, L500.4050, L100.0100 #### [facility] [address] [place], [address] Renal Profileon 06-22-2024 Albumin [Mass/Vol] 3.1 g/dL Low 3.2-5.0 [facility] Comment on above: Order Comment: 111.2 UNKNOWN DATE AND TIME Performed By: #### L 501.0900 #### [facility] [address] [place], [address] BUN/CRE 8.5 RATIO Low 10-20 [facility] Comment on above: Order Comment: 111.2 UNKNOWN DATE AND TIME Performed By: #### L 501.0900 #### [facility] [address] [place], [address] CA,Total 9.4 mg/dL Normal 8.5-10.1 [facility] Comment on above: Order Comment: 111.2 UNKNOWN DATE AND TIME Performed By: #### L 501.0900 #### [facility] [address] [place], [address] Chloride [Moles/Vol] 110 mmol/L High 98-107 [facility] Comment on above: Order Comment: 111.2 UNKNOWN DATE AND TIME Performed By: #### L 501.0900 #### [facility] [address] [place], [address] CO2 [Moles/Vol] 24.0 mmol/L Normal 21.0-32.0 [facility] Comment on above: Order Comment: 111.2 UNKNOWN DATE AND TIME Performed By: #### L 501.0900 #### [facility] [address] [place], [address] Creatinine [Mass/Vol] 2.12 mg/dL High 0.70-1.30 [facility] Comment on above: Order Comment: 111.2 UNKNOWN DATE AND TIME Result Comment: The validity of the calculated GFR GFRAA in patients over 70 years has not been determined. Clinical correlation is essential. Performed By: #### L 501.0900 #### [facility] [address] [place], [address] EST GFR - AA 41 mL/min Low >60 [facility] Comment on above: Order Comment: 111.2 UNKNOWN DATE AND TIME Result Comment: Afri can Prydeinig GFR Calc Performed By: #### L 501.0900 #### [facility] [address] [place], [address] GFR/1.73 sq M.predicted among non-blacks MDRD (S/P/Bld) [Vol rate/Area] 34 mL/min/{1.73_m2} Low >60 [facility] Comment on above: Order Comment: 111.2 UNKNOWN DATE AND TIME Result Comment: Non- GFR Calc Performed By: #### L 501.0900 #### [facility] [address] [place], [address] Glucose [Mass/Vol] 106 mg/dL Normal 74-106 [facility] Comment on above: Order Comment: 111.2 UNKNOWN DATE AND TIME Result Comment: Fast ing Glucose result from 100 to 125 mg/dL suggests IMPAIRED HOMEOSTASIS per A.D.A. criteria. Performed By: #### L 501.0900 #### [facility] [address] [place], [address] Phosphate [Mass/Vol] 4.2 mg/dL Normal 2.5-4.9 [facility] Comment on above: Order Comment: 111.2 UNKNOWN DATE AND TIME Performed By: #### L 501.0900 #### [facility] [address] [place], [address] Potassium [Moles/Vol] 4.3 mmol/L Normal 3.5-5.1 [facility] Comment on above: Order Comment: 111.2 UNKNOWN DATE AND TIME Performed By: #### L 501.0900 #### [facility] [address] [place], [address] Sodium [Moles/Vol] 141 mmol/L Normal 136-145 [facility] Comment on above: Order Comment: 111.2 UNKNOWN DATE AND TIME Performed By: #### L 501.0900 #### [facility] [address] [place], [address] Urea nitrogen [Mass/Vol] 18 mg/dL Normal 7-18 [facility] Comment on above: Order Comment: 111.2 UNKNOWN DATE AND TIME Performed By: #### L 501.0900 #### [facility] [address] [place], [address] Hemoglobin A1con 06-08-2024 HbA1c (Bld) [Mass fraction] 5.9 % High 3.8-5.6 [facility] Comment on above: Order Comment: 111-2 Result Comment: Norm al < 5.7 % Prediabetic 5.7 - 6.4 % Diabetic >or= 6.5 % Please note range changes. Performed By: #### L 501.9985 #### [facility] [address] [place], [address] Protein+Creatinine Ratio,Uri neon 05-28-2024 PROT:CRE RATIO 135 mg/g CRE Normal 0-200 [facility] Comment on above: Performed By: #### L 501.2300, L500.4050, L100.0100 #### [facility] [address] [place], [address] Protein (U) [Mass/Vol] 20.5 mg/dL High <11.9 [facility] Comment on above: Performed By: #### L 501.2300, L500.4050, L100.0100 #### [facility] [address] [place], [address] UR CREAT 152.00 mg/dL Normal NO RANGE EST. [facility] Comment on above: Performed By: #### L 501.2300, [id number], L100.0100 #### [facility] [address] [place], [address] CBC W/Diff, Automatedon 07- Absolute Lymph 2.11 X10 3/uL Normal 0.83-4.51 [facility] Comment on above: Performed By: #### L 501.2300, [id number], L100.0100 #### [facility] [address] [place], [address] Absolute Neut 6.6 X10 3/uL Normal 2.0-7.7 [facility] Comment on above: Performed By: #### L 501.2300, [id number], L100.0100 #### [facility] [address] [place], [address] Basophils/100 WBC (Bld) 1.0 % Normal 0-1 [facility] Comment on above: Performed By: #### L 501.2300, [id number], L100.0100 #### [facility] [address] [place], [address] Eosinophils/100 WBC (Bld) 5.2 % High 0-5 [facility] Comment on above: Performed By: #### L 501.2300, [id number], L100.0100 #### [facility] [address] [place], [address] Erythrocyte distribution width (RBC) [Ratio] 13.1 % Normal 11.6-14.6 [facility] Comment on above: Performed By: #### L 501.2300, L500.4050, L100.0100 #### [facility] [address] [place], [address] Hematocrit (Bld) [Volume fraction] 42.0 % Normal 40-54 [facility] Comment on above: Performed By: #### L 501.2300, L500.4050, L100.0100 #### [facility] [address] [place], [address] Hemoglobin (Bld) [Mass/Vol] 13.6 g/dL Normal 13.0-16.5 [facility] Comment on above: Performed By: #### L 501.2300, L500.4050, L100.0100 #### [facility] [address] [place], [address] IG% 0.500 Normal 0.0-0.9 [facility] Comment on above: Result Comment: IG% - Immature Granulocytes (promyelocytes, myelocytes and metamyelocytes) > 1% indicates that a LEFT SHIFT is Present. Performed By: #### L 501.2300, L500.4050, L100.0100 #### [facility] [address] [place], [address] Lymphocytes/100 WBC (Bld) 20.5 % Normal 19-41 [facility] Comment on above: Performed By: #### L 501.2300, L500.4050, L100.0100 #### [facility] [address] [place], [address] MCH (RBC) [Entitic mass] 29.8 pg Normal 27.0-32.0 [facility] Comment on above: Performed By: #### L 501.2300, L500.4050, L100.0100 #### [facility] [address] [place], [address] MCHC (RBC) [Mass/Vol] 32.4 g/dL Normal 32-36 [facility] Comment on above: Performed By: #### L 501.2300, [id number], L100.0100 #### [facility] [address] [place], [address] MCV (RBC) [Entitic vol] 91.9 fL Normal 80-94 [facility] Comment on above: Performed By: #### L 501.2300, L500.4050, L100.0100 #### [facility] [address] [place], [address] Monocytes/100 WBC (Bld) 8.4 % Normal 0-10 [facility] Comment on above: Performed By: #### L 501.2300, L500.4050, L100.0100 #### [facility] [address] [place], [address] Neutrophils/100 WBC (Bld) 64.4 % Normal 47-70 [facility] Comment on above: Performed By: #### L 501.2300, L500.4050, L100.0100 #### [facility] [address] [place], [address] Nucleated RBC (Bld) [#/Vol] 0 10*3/uL Normal 0-5 [facility] Comment on above: Performed By: #### L 501.2300, L500.4050, L100.0100 #### [facility] [address] [place], [address] Platelet mean volume (Bld) [Entitic vol] 9.6 fL Normal 6.2-12.0 [facility] Comment on above: Performed By: #### L 501.2300, L500.4050, L100.0100 #### [facility] [address] [place], [address] Platelets (Bld) [#/Vol] 243 10*3/uL Normal 150-450 [facility] Comment on above: Performed By: #### L 501.2300, L500.4050, L100.0100 #### [facility] [address] [place], [address] RBC (Bld) [#/Vol] 4.57 10*6/uL Low 4.6-6.2 [facility] Comment on above: Performed By: #### L 501.2300, L500.4050, L100.0100 #### [facility] [address] [place], [address] RDW SD 43.5 fl Normal 35.1-43.9 [facility] Comment on above: Performed By: #### L 501.2300, L500.4050, L100.0100 #### [facility] [address] [place], [address] WBC (Bld) [#/Vol] 10.3 10*3/uL Normal 4.4-11.0 [facility] Comment on above: Performed By: #### L 501.2300, L500.4050, L100.0100 #### [facility] [address] [place], [address] Lithiumon 05-25-2024 LI 0.60 mmol/L Normal [facility] Comment on above: Order Comment: 111.2 Result Comment: Ther apeutic Range: 0.60 - 1.20 Performed By: #### L 501.2300, L500.4050, L100.0100 #### [facility] [address] [place], [address] Renal Profileon 05-25-2024 Albumin [Mass/Vol] 3.1 g/dL Low 3.2-5.0 [facility] Comment on above: Performed By: #### L 501.2300, L500.4050, L100.0100 #### [facility] [address] [place], [address] BUN/CRE 10.6 RATIO Normal 10-20 [facility] Comment on above: Performed By: #### L 501.2300, L500.4050, L100.0100 #### [facility] [address] [place], [address] CA,Total 9.6 mg/dL Normal 8.5-10.1 [facility] Comment on above: Performed By: #### L 501.2300, L500.4050, L100.0100 #### [facility] [address] [place], [address] Chloride [Moles/Vol] 108 mmol/L High 98-107 [facility] Comment on above: Performed By: #### L 501.2300, L500.4050, L100.0100 #### [facility] [address] [place], [address] CO2 [Moles/Vol] 26.0 mmol/L Normal 21.0-32.0 [facility] Comment on above: Performed By: #### L 501.2300, L500.4050, L100.0100 #### [facility] [address] [place], [address] Creatinine [Mass/Vol] 2.17 mg/dL High 0.70-1.30 [facility] Comment on above: Result Comment: The validity of the calculated GFR GFRAA in patients over 70 years has not been determined. Clinical correlation is essential. Performed By: #### L 501.2300, L500.4050, L100.0100 #### [facility] [address] [place], [address] EST GFR - AA 40 mL/min Low >60 [facility] Comment on above: Result Comment: Afri can Prydeinig GFR Calc Performed By: #### L 501.2300, L500.4050, L100.0100 #### [facility] [address] [place], [address] GFR/1.73 sq M.predicted among non-blacks MDRD (S/P/Bld) [Vol rate/Area] 33 mL/min/{1.73_m2} Low >60 [facility] Comment on above: Result Comment: Non- GFR Calc Performed By: #### L 501.2300, L500.4050, L100.0100 #### [facility] [address] [place], [address] Glucose [Mass/Vol] 126 mg/dL High 74-106 [facility] Comment on above: Result Comment: Fast ing Glucose result greater than or equal to 126 mg/dL suggests DIABETES MELLITUS per A.D.A. criteria. Performed By: #### L 501.2300, L500.4050, L100.0100 #### [facility] [address] [place], [address] Phosphate [Mass/Vol] 4.7 mg/dL Normal 2.5-4.9 [facility] Comment on above: Performed By: #### L 501.2300, L500.4050, L100.0100 #### [facility] [address] [place], [address] Potassium [Moles/Vol] 4.1 mmol/L Normal 3.5-5.1 [facility] Comment on above: Performed By: #### L 501.2300, L500.4050, L100.0100 #### [facility] [address] [place], [address] Sodium [Moles/Vol] 140 mmol/L Normal 136-145 [facility] Comment on above: Performed By: #### L 501.2300, L500.4050, L100.0100 #### [facility] [address] [place], [address] Urea nitrogen [Mass/Vol] 23 mg/dL High 7-18 [facility] Comment on above: Performed By: #### L 501.2300, L500.4050, L100.0100 #### [facility] [address] [place], [address] J[facility]-21-2024 [facility] -- REGGIE LEÓN ([id number]) 1965 M Date Time Provider Department 05/21/24 [facility] During your visit today, we recorded the following information about you: Brianna Juárez 05/21/2024 9:54 AM Signed No Show Documentation Reggie Mau no showed for an appointment on [id number] with Dorota Smith MD at [place]. He was scheduled for 919. I called and spoke with the patient regarding his missed appointment. Reggie stated the reason that he missed his appointment was because care facility didn't have him scheduled for transportation for this appointment today . Resources discussed/offered to patient: yes No show determined to be fault of patient: Yes This is the patients first no show in the last 12 months. Patient was rescheduled for not yet, they will call back. Letter mailed : Yes Is this the Third or Fourth No Show? Zohreh Juárez May 21, 2024 9:50 AM Allergies As of Date: 05/21/2024 Noted Allergy Reaction BEE POLLEN 10/28/2020 14 - Other: See Comments FLONASE (FLUTICASONE PROPIONATE) 10/21/2013 14 - Other: See Comments Comments: Anxiety LAMOTRIGINE 04/24/2008 2 - Rash ZYPREXA (OLANZAPINE) 06/21/2007 2 - Rash Date Reviewed: 02/09/2024 Reviewed by: Babak Drummond, RN - Fully Assessed Reason for Visit: No Show [1558] Prescriptions as of 05/21/2024 - acetaminophen-codeine (TYLENOL-COD #4) 300-60 mg per tablet Take 1 tablet by mouth every 8 hours as needed. 500mg - metFORMIN (GLUCOPHAGE) 1,000 mg tablet Take 1 tablet by mouth two times a day. - melatonin 10 mg tab Take 10 mg by mouth once daily. - quetiapine fumarate (SEROQUEL XR ORAL) Take 500 mg by mouth once daily. - ipratropium-albuterol (DUONEB) 0.5 mg-3 mg(2.5 mg base)/3 mL nebu Inhale 3 mL as instructed every 6 hours as needed for wheezing/shortness of breath. - allopurinol (ZYLOPRIM) 100 mg tablet Take 0.5 tablets by mouth once daily. - riTUXimab 1,000 mg in NaCl 0.9% 250 mL Inject 1,000 mg intravenously as directed for 1 dose. - aluminum-magnesium hydroxide-simethicone (MAALOX,MYLANTA,MAG-AL PLUS) 200-200-20 mg/5 mL suspension Take 20 mL by mouth every 6 hours as needed. - hydrOXYchloroQUINE (PLAQUENIL) 200 mg tablet Take 100 mg by mouth once daily. - melatonin 3 mg capsules Take 10 mg by mouth daily at bedtime. - furosemide (LASIX) 20 mg tablet Take 20 mg by mouth once daily. - furosemide (LASIX) 40 mg tablet Take 40 mg by mouth once daily. - lithium carbonate (ESKALITH) 150 mg capsule Take 150 mg by mouth once daily. - lithium carbonate (ESKALITH) 300 mg capsule Take 300 mg by mouth once daily. - sulfamethoxazole-trimethop rim (BACTRIM DS,SEPTRA DS) 800-160 mg per tablet Take 1 tablet by mouth three times a week. - omeprazole (PRILOSEC) 20 mg capsule Take 20 mg by mouth once daily. - metoprolol succinate ER (TOPROL XL) 50 mg 24 hr tablet Take 1 tablet by mouth once daily. - losartan (COZAAR) 50 mg tablet Take 1 tablet by mouth once daily. - atorvastatin (LIPITOR) 20 mg tablet Take 1 tablet by mouth once daily. - loratadine (CLARITIN) 10 mg tablet Take 10 mg by mouth once daily. - Dlrnw-5-LOJ-EPA-Fish Oil 1,000 mg (120 mg-180 mg) cap Take 1 capsule by mouth once daily. - PALIPERIDONE ORAL Take 6 mg by mouth as directed. Problem List As Of Date 05/21/2024 Noted Resolved Pneumonia, Organism Unspecified [J18.9] 01/29/2008 02/11/2010 Acute Gastritis without Mention of Hemorrhage [*05/28/2008 02/11/2010 Nontraumatic rupture of other tendons of foot a*10/08/2009 07/30/2016 Routine general medical examination at [facility]*10/21/2009 01/29/2013 Class: Chronic Bipolar affective disorder (HCC) [F31.9] 10/21/2009 Tobacco abuse [Z72.0] 10/21/2009 07/10/2018 Porokeratosis [Q82.8] 02/03/2010 Gastritis, chronic [K29.50] 02/11/2010 07/10/2018 Erosive esophagitis [K22.10] 02/11/2010 Achilles bursitis or tendinitis [M76.60] 03/20/2010 07/30/2016 Contusion of unspecified site [T14.8XXA] 03/30/2010 07/30/2016 Enthesopathy of unspecified site [M77.9] 11/25/2010 07/10/2018 Other physical therapy [[id number]] 11/25/2010 07/10/2018 Low HDL (under 40) [E78.6] 06/28/2011 Rheumatoid arthritis(714.0) [M06.9] 12/08/2012 07/10/2018 Constipation [K59.00] 02/20/2013 07/10/2018 Diarrhea [R19.7] 02/20/2013 07/10/2018 Constitutional obesity [E66.8] 07/14/2015 07/10/2018 Obesity, Class III, BMI 40-49.9 (morbid obesity*07/14/2015 Tobacco abuse, 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 Normal [facility] CBC W/Diff, Automatedon 06- Absolute Lymph 2.09 X10 3/uL Normal 0.83-4.51 [facility] Comment on above: Order Comment: 111.2 Performed By: #### L 501.2300, [id number], L100.0100 #### [facility] [address] [place], [address] Absolute Neut 6.8 X10 3/uL Normal 2.0-7.7 [facility] Comment on above: Order Comment: 111.2 Performed By: #### L 501.2300, [id number], L100.0100 #### [facility] [address] [place], [address] Basophils/100 WBC (Bld) 1.0 % Normal 0-1 [facility] Comment on above: Order Comment: 111.2 Performed By: #### L 501.2300, [id number], L100.0100 #### [facility] [address] [place], [address] Eosinophils/100 WBC (Bld) 3.5 % Normal 0-5 [facility] Comment on above: Order Comment: 111.2 Performed By: #### L 501.2300, [id number], L100.0100 #### [facility] [address] [place], [address] Erythrocyte distribution width (RBC) [Ratio] 13.2 % Normal 11.6-14.6 [facility] Comment on above: Order Comment: 111.2 Performed By: #### L 501.2300, [id number], L100.0100 #### [facility] [address] [place], [address] Hematocrit (Bld) [Volume fraction] 41.3 % Normal 40-54 [facility] Comment on above: Order Comment: 111.2 Performed By: #### L 501.2300, [id number], L100.0100 #### [facility] [address] [place], [address] Hemoglobin (Bld) [Mass/Vol] 13.4 g/dL Normal 13.0-16.5 [facility] Comment on above: Order Comment: 111.2 Performed By: #### L 501.2300, [id number], L100.0100 #### [facility] [address] [place], [address] IG% 0.400 Normal 0.0-0.9 [facility] Comment on above: Order Comment: 111.2 Result Comment: IG% - Immature Granulocytes (promyelocytes, myelocytes and metamyelocytes) > 1% indicates that a LEFT SHIFT is Present. Performed By: #### L 501.2300, [id number], L100.0100 #### [facility] [address] [place], [address] Lymphocytes/100 WBC (Bld) 20.2 % Normal 19-41 [facility] Comment on above: Order Comment: 111.2 Performed By: #### L 501.2300, [id number], L100.0100 #### [facility] [address] [place], [address] MCH (RBC) [Entitic mass] 29.7 pg Normal 27.0-32.0 [facility] Comment on above: Order Comment: 111.2 Performed By: #### L 501.2300, [id number], L100.0100 #### [facility] [address] [place], [address] MCHC (RBC) [Mass/Vol] 32.4 g/dL Normal 32-36 [facility] Comment on above: Order Comment: 111.2 Performed By: #### L 501.2300, [id number], L100.0100 #### [facility] [address] [place], [address] MCV (RBC) [Entitic vol] 91.6 fL Normal 80-94 [facility] Comment on above: Order Comment: 111.2 Performed By: #### L 501.2300, [id number], L100.0100 #### [facility] [address] [place], [address] Monocytes/100 WBC (Bld) 9.2 % Normal 0-10 [facility] Comment on above: Order Comment: 111.2 Performed By: #### L 501.2300, [id number], L100.0100 #### [facility] [address] [place], [address] Neutrophils/100 WBC (Bld) 65.7 % Normal 47-70 [facility] Comment on above: Order Comment: 111.2 Performed By: #### L 501.2300, [id number], L100.0100 #### [facility] [address] [place], [address] Nucleated RBC (Bld) [#/Vol] 0 10*3/uL Normal 0-5 [facility] Comment on above: Order Comment: 111.2 Performed By: #### L 501.2300, [id number], L100.0100 #### [facility] [address] [place], [address] Platelet mean volume (Bld) [Entitic vol] 9.7 fL Normal 6.2-12.0 [facility] Comment on above: Order Comment: 111.2 Performed By: #### L 501.2300, [id number], L100.0100 #### [facility] [address] [place], [address] Platelets (Bld) [#/Vol] 220 10*3/uL Normal 150-450 [facility] Comment on above: Order Comment: 111.2 Performed By: #### L 501.2300, [id number], L100.0100 #### [facility] [address] [place], [address] RBC (Bld) [#/Vol] 4.51 10*6/uL Low 4.6-6.2 [facility] Comment on above: Order Comment: 111.2 Performed By: #### L 501.2300, [id number], L100.0100 #### [facility] [address] [place], [address] RDW SD 44.3 fl High 35.1-43.9 [facility] Comment on above: Order Comment: 111.2 Performed By: #### L 501.2300, [id number], L100.0100 #### [facility] [address] [place], [address] WBC (Bld) [#/Vol] 10.4 10*3/uL Normal 4.4-11.0 [facility] Comment on above: Order Comment: 111.2 Performed By: #### L 501.2300, [id number], L100.0100 #### [facility] [address] [place], [address] Lithiumon 04-27-2024 LI 0.50 mmol/L Low 0.60-1.20 [facility] Comment on above: Order Comment: 111.2 Performed By: #### L 501.2300, [id number], L100.0100 #### [facility] [address] [place], [address] Renal Profileon 04-27-2024 Albumin [Mass/Vol] 3.2 g/dL Normal 3.2-5.0 [facility] Comment on above: Order Comment: 111.2 Performed By: #### L 501.2300, [id number], L100.0100 #### [facility] [address] [place], [address] BUN/CRE 12.0 RATIO Normal 10-20 [facility] Comment on above: Order Comment: 111.2 Performed By: #### L 501.2300, [id number], L100.0100 #### [facility] [address] [place], [address] CA,Total 9.3 mg/dL Normal 8.5-10.1 [facility] Comment on above: Order Comment: 111.2 Performed By: #### L 501.2300, [id number], L100.0100 #### [facility] [address] [place], [address] Chloride [Moles/Vol] 106 mmol/L Normal 98-107 [facility] Comment on above: Order Comment: 111.2 Performed By: #### L 501.2300, [id number], L100.0100 #### [facility] [address] [place], [address] CO2 [Moles/Vol] 24.0 mmol/L Normal 21.0-32.0 [facility] Comment on above: Order Comment: 111.2 Performed By: #### L 501.2300, [id number], L100.0100 #### [facility] [address] [place], [address] Creatinine [Mass/Vol] 2.17 mg/dL High 0.70-1.30 [facility] Comment on above: Order Comment: 111.2 Result Comment: The validity of the calculated GFR GFRAA in patients over 70 years has not been determined. Clinical correlation is essential. Performed By: #### L 501.2300, [id number], L100.0100 #### [facility] [address] [place], [address] EST GFR - AA 40 mL/min Low >60 [facility] Comment on above: Order Comment: 111.2 Result Comment: Afri can Prydeinig GFR Calc Performed By: #### L 501.2300, [id number], L100.0100 #### [facility] [address] [place], [address] GFR/1.73 sq M.predicted among non-blacks MDRD (S/P/Bld) [Vol rate/Area] 33 mL/min/{1.73_m2} Low >60 [facility] Comment on above: Order Comment: 111.2 Result Comment: Non- GFR Calc Performed By: #### L 501.2300, [id number], L100.0100 #### [facility] [address] [place], [address] Glucose [Mass/Vol] 131 mg/dL High 74-106 [facility] Comment on above: Order Comment: 111.2 Result Comment: Fast ing Glucose result greater than or equal to 126 mg/dL suggests DIABETES MELLITUS per A.D.A. criteria. Performed By: #### L 501.2300, [id number], L100.0100 #### [facility] [address] [place], [address] Phosphate [Mass/Vol] 4.3 mg/dL Normal 2.5-4.9 [facility] Comment on above: Order Comment: 111.2 Performed By: #### L 501.2300, [id number], L100.0100 #### [facility] [address] [place], [address] Potassium [Moles/Vol] 3.9 mmol/L Normal 3.5-5.1 [facility] Comment on above: Order Comment: 111.2 Performed By: #### L 501.2300, [id number], L100.0100 #### [facility] [address] [place], [address] Sodium [Moles/Vol] 139 mmol/L Normal 136-145 [facility] Comment on above: Order Comment: 111.2 Performed By: #### L 501.2300, [id number], L100.0100 #### [facility] [address] [place], [address] Urea nitrogen [Mass/Vol] 26 mg/dL High 7-18 [facility] Comment on above: Order Comment: 111.2 Performed By: #### L 501.2300, [id number], L100.0100 #### [facility] [address] [place], [address] Uric Acidon 04-27-2024 URIC 5.9 mg/dL Normal 3.5-7.2 [facility] Comment on above: Order Comment: 111.2 Result Comment: The drugs N-Acetylcysteine and Metamizole may falsely depress this assay. Performed By: #### L 501.2300, [id number], L100.0100 #### [facility] [address] [place], [address] [facility] -- REGGIE LEÓN ([id number]) 1965 M Date Time Provider Department 03/19/24 RONNY COREAS [facility] During your visit today, we recorded the following information about you: Aicha Silva 03/19/2024 8:34 AM Signed Patient calling in asking if his 9 am can be switched to a VV as transportation did not pick him up please advise. Please call patient to inform either way. Angelia Sorenson LPN 03/19/2024 8:[address] Coreas appt was switched to a virtual visit. Allergies As of Date: 03/19/2024 Noted Allergy Reaction BEE POLLEN 10/28/2020 14 - Other: See Comments FLONASE (FLUTICASONE PROPIONATE) 10/21/2013 14 - Other: See Comments Comments: Anxiety LAMOTRIGINE 04/24/2008 2 - Rash ZYPREXA (OLANZAPINE) 06/21/2007 2 - Rash Date Reviewed: 02/09/2024 Reviewed by: Babak Drummond RN - Fully Assessed Prescriptions as of 03/19/2024 - acetaminophen-codeine (TYLENOL-COD #4) 300-60 mg per tablet Take 1 tablet by mouth every 8 hours as needed. 500mg - metFORMIN (GLUCOPHAGE) 1,000 mg tablet Take 1 tablet by mouth two times a day. - melatonin 10 mg tab Take 10 mg by mouth once daily. - quetiapine fumarate (SEROQUEL XR ORAL) Take 500 mg by mouth once daily. - ipratropium-albuterol (DUONEB) 0.5 mg-3 mg(2.5 mg base)/3 mL nebu Inhale 3 mL as instructed every 6 hours as needed for wheezing/shortness of breath. - allopurinol (ZYLOPRIM) 100 mg tablet Take 0.5 tablets by mouth once daily. - riTUXimab 1,000 mg in NaCl 0.9% 250 mL Inject 1,000 mg intravenously as directed for 1 dose. - aluminum-magnesium hydroxide-simethicone (MAALOX,MYLANTA,MAG-AL PLUS) 200-200-20 mg/5 mL suspension Take 20 mL by mouth every 6 hours as needed. - hydrOXYchloroQUINE (PLAQUENIL) 200 mg tablet Take 100 mg by mouth once daily. - melatonin 3 mg capsules Take 10 mg by mouth daily at bedtime. - furosemide (LASIX) 20 mg tablet Take 20 mg by mouth once daily. - furosemide (LASIX) 40 mg tablet Take 40 mg by mouth once daily. - lithium carbonate (ESKALITH) 150 mg capsule Take 150 mg by mouth once daily. - lithium carbonate (ESKALITH) 300 mg capsule Take 300 mg by mouth once daily. - sulfamethoxazole-trimethop rim (BACTRIM DS,SEPTRA DS) 800-160 mg per tablet Take 1 tablet by mouth three times a week. - omeprazole (PRILOSEC) 20 mg capsule Take 20 mg by mouth once daily. - metoprolol succinate ER (TOPROL XL) 50 mg 24 hr tablet Take 1 tablet by mouth once daily. - losartan (COZAAR) 50 mg tablet Take 1 tablet by mouth once daily. - atorvastatin (LIPITOR) 20 mg tablet Take 1 tablet by mouth once daily. - loratadine (CLARITIN) 10 mg tablet Take 10 mg by mouth once daily. - Ehwks-2-BUM-EPA-Fish Oil 1,000 mg (120 mg-180 mg) cap Take 1 capsule by mouth once daily. - PALIPERIDONE ORAL Take 6 mg by mouth as directed. Problem List As Of Date 03/19/2024 Noted Resolved Pneumonia, Organism Unspecified [J18.9] 01/29/2008 02/11/2010 Acute Gastritis without Mention of Hemorrhage [*05/28/2008 02/11/2010 Nontraumatic rupture of other tendons of foot a*10/08/2009 07/30/2016 Routine general medical examination at [facility]*10/21/2009 01/29/2013 Class: Chronic Bipolar affective disorder (HCC) [F31.9] 10/21/2009 Tobacco abuse [Z72.0] 10/21/2009 07/10/2018 Porokeratosis [Q82.8] 02/03/2010 Gastritis, chronic [K29.50] 02/11/2010 07/10/2018 Erosive esophagitis [K22.10] 02/11/2010 Achilles bursitis or tendinitis [M76.60] 03/20/2010 07/30/2016 Contusion of unspecified site [T14.8XXA] 03/30/2010 07/30/2016 Enthesopathy of unspecified site [M77.9] 11/25/2010 07/10/2018 Other physical therapy [[id number]] 11/25/2010 07/10/2018 Low HDL (under 40) [E78.6] 06/28/2011 Rheumatoid arthritis(714.0) [M06.9] 12/08/2012 07/10/2018 Constipation [K59.00] 02/20/2013 07/10/2018 Diarrhea [R19.7] 02/20/2013 07/10/2018 Constitutional obesity [E66.8] 07/14/2015 07/10/2018 Obesity, Class III, BMI 40-49.9 (morbid obesity*07/14/2015 Tobacco abuse, 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] 07/14/2015 S/P lumbar fusion [Z98.1] 07/14/2015 Ventral hernia without obstruction or gangrene *11/20/2015 Umbilical hernia without obstruction or gangren*11/20/2015 Pain of toe of left foot [M79.675] 02/17/2016 07/10/2018 Incisional hernia, incarcerated [K43.0] 02/21/2016 Vasculitis (HCC) [I77.6] 08/11/2016 Malnutrition of mild degree (HCC) [E44.1] 08/14/2016 07/10/2018 Leukocytosis (leucocytosis) [D72.829] 08/17/2016 Rey's granulomatosis (HCC) [M31.30] 09/10/2016 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 Normal [facility] Absolute lymphocyte countOrd ered By: Alfredo Phipps on 02-03-2024 Lymphocytes Auto (Unsp spec) [#/Vol] 2.12 10*3/uL 0.83-4.51 [facility] Automated lymphocyte count a s percentage of total leukocytesOrdered By: Alfredo Phipps on 02-03-2024 Lymphocytes/100 WBC Auto (Unsp spec) 20.5 % 19-41 [facility] Basophil percentageOrdered B y: Alfredo Phipps on 02-03-2024 Basophil percentage 4.0 mg/dL 2.5-4.9 [facility] Basophils/100 WBC (Bld) 0.9 % 0-1 [facility] Chloride [Moles/Vol] 109 mmol/L 98-107 [facility] Eosinophils/100 WBC (Bld) 3.9 % 0-5 [facility] Glucose [Mass/Vol] 122 mg/dL 74-106 [facility] Comment on above: Fasting Glucose resu lt from 100 to 125 mg/dL suggests IMPAIRED HOMEOSTASIS per A.D.A. criteria. Hemoglobin (Bld) [Mass/Vol] 13.3 g/dL 13.0-16.5 [facility] Monocytes/100 WBC (Bld) 8.8 % 0-10 [facility] Neutrophils (Bld) [#/Vol] 6.8 10*3/uL 2.0-7.7 [facility] Neutrophils/100 WBC (Bld) 65.2 % 47-70 [facility] Potassium [Moles/Vol] 4.1 mmol/L 3.5-5.1 [facility] Sodium [Moles/Vol] 140 mmol/L 136-145 [facility] WBC (Bld) [#/Vol] 10.4 10*3/uL 4.4-11.0 [facility] Determination of erythrocyte mean corpuscular volume (MCV)Ordered By: Alfredo Phipps on 02-03-2024 MCV (RBC) [Entitic vol] 89.0 fL 80-94 [facility] Erythrocyte distribution wid th ratioOrdered By: Alfredo Phipps on 02-03-2024 Erythrocyte distribution width (RBC) [Ratio] 13.6 % 11.6-14.6 [facility] Erythrocyte distribution wid th standard deviationOrdered By: Alfredo Phipps on 02-03-2024 Erythrocyte distribution width (RBC) [Entitic vol] 44.2 fL 35.1-43.9 [facility] Hematocrit Auto (Bld) [Volum e fraction]Ordered By: Alfredo Phipps on 02-03-2024 Hematocrit (Bld) [Volume fraction] 40.4 % 40-54 [facility] Immature granulocytes/100 WB C Auto (Bld)Ordered By: Alfredo Phipps on 02-03-2024 Immature granulocytes/100 WBC (Bld) 0.700 % 0.0-0.9 [facility] Comment on above: IG% - Immature Granu locytes (promyelocytes, myelocytes and metamyelocytes) > 1% indicates that a LEFT SHIFT is Present. Laboratory - Chemistry and C hemistry - challengeOrdered By: Alfredo Phipps on 02-03-2024 CO2 [Moles/Vol] 24.0 mmol/L 21.0-32.0 [facility] Urea nitrogen/Creatinine [Mass ratio] 10.9 mg/mg 10-20 [facility] - Hematology and Cell countsOrdered By: Alfredo Phipps on 02-03-2024 MCH (RBC) [Entitic mass] 29.3 pg 27.0-32.0 [facility] MCHC (RBC) [Mass/Vol] 32.9 g/dL 32-36 [facility] Nucleated RBC/100 WBC (Bld) [Ratio] 0 % 0-5 [facility] Platelet mean volume (Bld) [Entitic vol] 9.5 fL 6.2-12.0 [facility] Platelets (Bld) [#/Vol] 234 10*3/uL 150-450 [facility] No Panel InformationOrdered By: Alfredo Phipps on 02-03-2024 Estimated GFR (MDRD) Amer 48 mL/min >60 [facility] Comment on above: GFR Calc Estimated GFR (MDRD) Non-Af Amer 40 mL/min >60 [facility] Comment on above: Non- GFR Calc [place] Level 0.60 mmol/L 0.60-1.20 [facility] RBC Auto (Bld) [#/Vol]Ordere d By: Alfredo Phipps on 02-03-2024 RBC (Bld) [#/Vol] 4.54 10*6/uL 4.6-6.2 [facility] Serum or plasma calcium you urement (mass/volume)Ordered By: Alfredo Phipps on 02-03-2024 Calcium [Mass/Vol] 9.2 mg/dL 8.5-10.1 [facility] Serum or plasma creatinine m easurement (mass/volume)Ordered By: Alfredo Phipps on 02-03-2024 Creatinine [Mass/Vol] 1.84 mg/dL 0.70-1.30 [facility] Comment on above: The validity of the calculated GFR & GFRAA in patients over 70 years has not been determined. Clinical correlation is essential. Serum or plasma urea nitroge n measurement (mass/volume)Ordered By: Alfredo Phipps on 02-03-2024 Urea nitrogen [Mass/Vol] 20 mg/dL 7-18 [facility] Thin prep Papanicolaou smear with manual screeningOrdered By: Alfredo Phipps on 02-03-2024 Thin prep Papanicolaou smear with manual screening 3.0 g/dL 3.2-5.0 [facility] Protein (U) [Mass/Vol] 19.8 mg/dL 0.0-11.8 [facility] Urine creatinine measurement (mass/volume)Ordered By: Alfredo Phipps on 02-03-2024 Creatinine (U) [Mass/Vol] 116.00 mg/dL NO RANGE EST. [facility] Urine protein/creatinine mas s ratioOrdered By: Alfredo Phipps on 02-03-2024 Protein/Creatinine (U) [Mass ratio] 171 mg/g CRE 0-200 [facility] Absolute lymphocyte countOrd ered By: Alfredo Phipps on 01-06-2024 Lymphocytes Auto (Unsp spec) [#/Vol] 2.00 10*3/uL 0.83-4.51 [facility] Automated lymphocyte count a s percentage of total leukocytesOrdered By: Alfredo Phipps on 01-06-2024 Lymphocytes/100 WBC Auto (Unsp spec) 20.9 % 19-41 [facility] Basophil percentageOrdered B y: Alfredo Phipps on 01-06-2024 Basophil percentage 4.2 mg/dL 2.5-4.9 [facility] Basophils/100 WBC (Bld) 0.8 % 0-1 [facility] Chloride [Moles/Vol] 109 mmol/L 98-107 [facility] Eosinophils/100 WBC (Bld) 3.9 % 0-5 [facility] Glucose [Mass/Vol] 113 mg/dL 74-106 [facility] Comment on above: Fasting Glucose resu lt from 100 to 125 mg/dL suggests IMPAIRED HOMEOSTASIS per A.D.A. criteria. Hemoglobin (Bld) [Mass/Vol] 13.7 g/dL 13.0-16.5 [facility] Monocytes/100 WBC (Bld) 8.4 % 0-10 [facility] Neutrophils (Bld) [#/Vol] 6.3 10*3/uL 2.0-7.7 [facility] Neutrophils/100 WBC (Bld) 65.7 % 47-70 [facility] Potassium [Moles/Vol] 4.2 mmol/L 3.5-5.1 [facility] Sodium [Moles/Vol] 143 mmol/L 136-145 [facility] WBC (Bld) [#/Vol] 9.6 10*3/uL 4.4-11.0 [facility] Determination of erythrocyte mean corpuscular volume (MCV)Ordered By: Alfredo Phipps on 01-06-2024 MCV (RBC) [Entitic vol] 90.1 fL 80-94 [facility] Erythrocyte distribution wid th ratioOrdered By: Alfredo Phipps on 01-06-2024 Erythrocyte distribution width (RBC) [Ratio] 13.2 % 11.6-14.6 [facility] Erythrocyte distribution wid th standard deviationOrdered By: Alfredo Phipps on 01-06-2024 Erythrocyte distribution width (RBC) [Entitic vol] 43.2 fL 35.1-43.9 [facility] Hematocrit Auto (Bld) [Volum e fraction]Ordered By: Alfredo Phipps on 01-06-2024 Hematocrit (Bld) [Volume fraction] 41.7 % 40-54 [facility] Immature granulocytes/100 WB C Auto (Bld)Ordered By: Alfredo Phipps on 01-06-2024 Immature granulocytes/100 WBC (Bld) 0.300 % 0.0-0.9 [facility] Comment on above: IG% - Immature Granu locytes (promyelocytes, myelocytes and metamyelocytes) > 1% indicates that a LEFT SHIFT is Present. Laboratory - Chemistry and C hemistry - challengeOrdered By: Alfredo Phipps on 01-06-2024 CO2 [Moles/Vol] 24.0 mmol/L 21.0-32.0 [facility] Urea nitrogen/Creatinine [Mass ratio] 8.9 mg/mg 10-20 [facility] Laboratory - Hematology and Cell countsOrdered By: Alfredo Phipps on 01-06-2024 MCH (RBC) [Entitic mass] 29.6 pg 27.0-32.0 [facility] MCHC (RBC) [Mass/Vol] 32.9 g/dL 32-36 [facility] Nucleated RBC/100 WBC (Bld) [Ratio] 0 % 0-5 [facility] Platelet mean volume (Bld) [Entitic vol] 9.6 fL 6.2-12.0 [facility] Platelets (Bld) [#/Vol] 209 10*3/uL 150-450 [facility] No Panel InformationOrdered By: Alfredo Phipps on 01-06-2024 Estimated GFR (MDRD) Amer 44 mL/min >60 [facility] Comment on above: GFR Calc Estimated GFR (MDRD) Non-Af Amer 36 mL/min >60 [facility] Comment on above: Non- GFR Calc [place] Level 0.60 mmol/L 0.60-1.20 [facility] RBC Auto (Bld) [#/Vol]Ordere d By: Alfredo Phipps on 01-06-2024 RBC (Bld) [#/Vol] 4.63 10*6/uL 4.6-6.2 [facility] Serum or plasma calcium you urement (mass/volume)Ordered By: Alfredo Phipps on 01-06-2024 Calcium [Mass/Vol] 9.3 mg/dL 8.5-10.1 [facility] Serum or plasma creatinine m easurement (mass/volume)Ordered By: Alfredo Phipps on 01-06-2024 Creatinine [Mass/Vol] 2.02 mg/dL 0.70-1.30 [facility] Comment on above: The validity of the calculated GFR & GFRAA in patients over 70 years has not been determined. Clinical correlation is essential. Serum or plasma urea nitroge n measurement (mass/volume)Ordered By: Alfredo Phipps on 01-06-2024 Urea nitrogen [Mass/Vol] 18 mg/dL 7-18 [facility] Thin prep Papanicolaou smear with manual screeningOrdered By: Alfredo Phipps on 01-06-2024 Thin prep Papanicolaou smear with manual screening 3.3 g/dL 3.2-5.0 [facility] Protein (U) [Mass/Vol] 19.0 mg/dL 0.0-11.8 [facility] Urine creatinine measurement (mass/volume)Ordered By: Alfredo Phipps on 01-06-2024 Creatinine (U) [Mass/Vol] 122.00 mg/dL NO RANGE EST. [facility] Urine protein/creatinine mas s ratioOrdered By: Alfredo Phipps on 01-06-2024 Protein/Creatinine (U) [Mass ratio] 156 mg/g CRE 0-200 [facility] Telephone (gBox) -- REGGIE LEÓN ([id number]) 1965 M Date Time Provider Department 12/23/23 NURIA ENRIQUEZ During your visit today, we recorded the following information about you: Allergies As of Date: 12/23/2023 Noted Allergy Reaction BEE POLLEN 10/28/2020 14 - Other: See Comments FLONASE (FLUTICASONE PROPIONATE) 10/21/2013 14 - Other: See Comments Comments: Anxiety LAMOTRIGINE 04/24/2008 2 - Rash ZYPREXA (OLANZAPINE) 06/21/2007 2 - Rash Date Reviewed: 12/20/2023 Reviewed by: Anthony Olivares MD - Fully Assessed Reason for Visit: Appointment [186] Prescriptions as of 12/23/2023 - acetaminophen-codeine (TYLENOL-COD #4) 300-60 mg per tablet Take 1 tablet by mouth every 8 hours as needed. 500mg - metFORMIN (GLUCOPHAGE) 1,000 mg tablet Take 1 tablet by mouth two times a day. - melatonin 10 mg tab Take 10 mg by mouth once daily. - quetiapine fumarate (SEROQUEL XR ORAL) Take 500 mg by mouth once daily. - ipratropium-albuterol (DUONEB) 0.5 mg-3 mg(2.5 mg base)/3 mL nebu Inhale 3 mL as instructed every 6 hours as needed for wheezing/shortness of breath. - allopurinol (ZYLOPRIM) 100 mg tablet Take 0.5 tablets by mouth once daily. - riTUXimab 1,000 mg in NaCl 0.9% 250 mL Inject 1,000 mg intravenously as directed for 1 dose. - aluminum-magnesium hydroxide-simethicone (MAALOX,MYLANTA,MAG-AL PLUS) 200-200-20 mg/5 mL suspension Take 20 mL by mouth every 6 hours as needed. - hydrOXYchloroQUINE (PLAQUENIL) 200 mg tablet Take 100 mg by mouth once daily. - melatonin 3 mg capsules Take 10 mg by mouth daily at bedtime. - furosemide (LASIX) 20 mg tablet Take 20 mg by mouth once daily. - furosemide (LASIX) 40 mg tablet Take 40 mg by mouth once daily. - lithium carbonate (ESKALITH) 150 mg capsule Take 150 mg by mouth once daily. - lithium carbonate (ESKALITH) 300 mg capsule Take 300 mg by mouth once daily. - sulfamethoxazole-trimethop rim (BACTRIM DS,SEPTRA DS) 800-160 mg per tablet Take 1 tablet by mouth three times a week. - omeprazole (PRILOSEC) 20 mg capsule Take 20 mg by mouth once daily. - metoprolol succinate ER (TOPROL XL) 50 mg 24 hr tablet Take 1 tablet by mouth once daily. - losartan (COZAAR) 50 mg tablet Take 1 tablet by mouth once daily. - atorvastatin (LIPITOR) 20 mg tablet Take 1 tablet by mouth once daily. - loratadine (CLARITIN) 10 mg tablet Take 10 mg by mouth once daily. - Bgiei-2-TAP-EPA-Fish Oil 1,000 mg (120 mg-180 mg) cap Take 1 capsule by mouth once daily. - PALIPERIDONE ORAL Take 6 mg by mouth as directed. Problem List As Of Date 12/23/2023 Noted Resolved Pneumonia, Organism Unspecified [J18.9] 01/29/2008 02/11/2010 Acute Gastritis without Mention of Hemorrhage [*05/28/2008 02/11/2010 Nontraumatic rupture of other tendons of foot a*10/08/2009 07/30/2016 Routine general medical examination at a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 Type: BLOOD SPECIMEN Ordering Facility: [facility] Address: [address] [place] [address] Performed By: #### 5 7021-8 #### [facility] CLIA [id number] [address] [place] [address] [place] LIPID PANEL, NONFASTINGon Cholesterol [Mass/Vol] 139 mg/dL <200 mg/dL [facility] HDL Cholesterol, Nonfasting 32 mg/dL Low >39 mg/dL [facility] LDL Cholesterol, Nonfasting 51 mg/dL <100 mg/dL [facility] LDL/HDL Ratio, Nonfasting 1.59 mg/dL <2.54 mg/dL [facility] Non HDL Cholesterol, Nonfasting 107 mg/dL <130 mg/dL [facility] Total Chol/HDL Ratio, Nonfasting 4.34 mg/dL <5.10 mg/dL [facility] Triglycerides, Nonfasting 280 mg/dL High <150 mg/dL [facility] VLDL Cholesterol, Nonfasting 56 mg/dL High <30 mg/dL [facility] Cholesterol [Mass/Vol] 139 mg/dL Normal <200 [facility] Comment on above: Order Comment: Speci men Type: BLOOD SPECIMEN Ordering Facility: [facility] Address: [address] [place] [address] Result Comment: <200 mg/dL, Desirable 200-239 mg/dL, Borderline high >239 mg/dL, High Performed By: #### 5 7021-8 #### [facility] CLIA [id number] [facility] [address] OF [facility] HDL CHOLESTEROL, NF 32 mg/dL Low >39 [facility] Comment on above: Order Comment: Peewee zuniga Type: BLOOD SPECIMEN Ordering Facility: [facility] Address: [address] [place] [address] Result Comment: 40-5 9 mg/dL, Acceptable >59 mg/dL, High: Negative risk factor for coronary heart disease <40 mg/dL, Low: Positive risk factor for coronary heart disease Performed By: #### 5 7021-8 #### [facility] CLIA [id number] [address] [place] [address] LDL CHOLESTEROL, NF 51 mg/dL Normal <100 [facility] Comment on above: Order Comment: Peewee zuniga Type: BLOOD SPECIMEN Ordering Facility: [facility] Address: [address] [place] [address] Result Comment: <100 mg/dL, Optimal 100-129 mg/dL, Near optimal/above optimal 130-159 mg/dL, Borderline high 160-189 mg/dL, High >189 mg/dL, Very high Secondary prevention optimal LDL Cholesterol levels are recommended to be < 70 mg/dL Performed By: #### 5 7021-8 #### [facility] CLIA [id number] [address] [place] [address] OF [facility] LDL/HDL RATIO, NF 1.59 mg/dL Normal <2.54 [facility] Comment on above: Order Comment: Peewee efrain Type: BLOOD SPECIMEN Ordering Facility: [facility] Address: [address] [place] [address] Result Comment: Terri saleh: 1. National Cholesterol Education Program ATP III Guideline At-A-Glance Quick Desk Reference: National Heart, Lung, and Blood [place]. National Institutes of Health. 2001: NIH Publication No. 01-3305. 2. An International Atherosclerosis Society position paper: global recommendations for the management of dyslipidemia: executive summary, Atherosclerosis. 2014: 232(2):410-413. Performed By: #### 5 7021-8 #### [facility] CLIA [id number] [address] [place] [address] [place] NON HDL CHOL, NF 107 mg/dL Normal <130 [facility] Comment on above: Order Comment: Peewee zuniga Type: BLOOD SPECIMEN Ordering Facility: [facility] Address: [address] [place] [address] Result Comment: <130 mg/dL, Optimal 130-159 mg/dL, Near optimal/above optimal 160-189 mg/dL, Borderline high 190-219 mg/dL, High >219 mg/dL, Very high Secondary prevention optimal non HDL Cholesterol levels are recommended to be <100 mg/dL Performed By: #### 5 7021-8 #### [facility] CLIA [id number] [address] [place] [address] STATES OF [facility] T CHOL/HDL RATIO NF 4.34 mg/dL Normal <5.10 [facility] Comment on above: Order Comment: Peewee zuniga Type: BLOOD SPECIMEN Ordering Facility: [facility] Address: [address] [place] [address] Performed By: #### 5 7021-8 #### [facility] CLIA [id number] [address] [place] [address] [place] TRIGLYCERIDES, NF 280 mg/dL High <150 [facility] Comment on above: Order Comment: Peewee zuniga Type: BLOOD SPECIMEN Ordering Facility: [facility] Address: [address] [place] [address] Result Comment: <150 mg/dL, Normal 150-199 mg/dL, Borderline high 200-499 mg/dL, High >499 mg/dL, Very high Performed By: #### 5 7021-8 #### [facility] CLIA [id number] [address] [place] [address] [place] VLDL CHOLESTEROL, NF 56 mg/dL High <30 [facility] Comment on above: Order Comment: Speci men Type: BLOOD SPECIMEN Ordering Facility: [facility] Address: [address] [place] [address] Performed By: #### 5 7021-8 #### [facility] CLIA [id number] [address] [place], [place] [id number] [place] PHOSPHORUS INORGANICon 12-20 Phosphate [Mass/Vol] 2.1 mg/dL Low 2.7 - 4 .8 mg/dL [facility] PROTEIN CREATININE RATIOon 0 12-20-2023 Protein/Creatinine (U) [Mass ratio] 0.07 mg/mg <0.15 mg/mg [facility] PTH INTACT BLDon 12-20-2023 Parathyrin.intact [Mass/Vol] 121 pg/mL High 15 - 65 pg/mL [facility] PTH-Intact SerPl-mCncon 02-0 Parathyrin.intact [Mass/Vol] 121 pg/mL High 15-65 [facility] Comment on above: Order Comment: Speci men Type: BLOOD SPECIMEN Ordering Facility: [facility] Address: [address] [place] [address] Performed By: #### 5 7021-8 #### [facility] CLIA [id number] [address] [place] [address] [place] Phosphate SerPl-mCncon 12-20 Phosphate [Mass/Vol] 2.1 mg/dL Low 2.7-4.8 [facility] Comment on above: Order Comment: Speci men Type: BLOOD SPECIMEN Ordering Facility: [facility] Address: [address] [place] [address] Performed By: #### 5 7021-8 #### [facility] CLIA [id number] [address] [place] [address] [place] Prot/Creat Uron 12-20-2023 Protein/Creatinine (U) [Mass ratio] 0.07 mg/mg Normal <0.15 [facility] Comment on above: Order Comment: Speci men Type: BLOOD SPECIMEN Ordering Facility: [facility] Address: [address] [place] [address] Result Comment: Adul t Proteinuria Categories: <0.15 mg/mg is considered normal to mildly increased 0.15 - 0.50 mg/mg is considered moderately increased >0.50 mg/mg is considered severely increased KDIGO. (2013). KDIGO 2012 Clinical Practice Guideline for the Evaluation and Management of Chronic Kidney Disease. Official Journal of the International Society of Nephrology, 3(1), 1-150. Performed By: #### 5 7021-8 #### [facility] CLIA [id number] [address] [place] [address] [place] Protein/Creatinine (U) [Mass ratio]on 12-20-2023 Creatinine (U) [Mass/Vol] 103.8 mg/dL 20.0 - 300.0 mg/dL [facility] Protein (U) [Mass/Vol] 7 mg/dL 0 - 2 0 mg/dL [facility] Creatinine (U) [Mass/Vol] 103.8 mg/dL Normal 20.0-300.0 [facility] Comment on above: Order Comment: Speci men Type: BLOOD SPECIMEN Ordering Facility: [facility] Address: [address] [place] [address] Performed By: #### 5 7021-8 #### [facility] CLIA [id number] [address] [place] [address] [place] Protein (U) [Mass/Vol] 7 mg/dL Normal 0-20 [facility] Comment on above: Order Comment: Speci men Type: BLOOD SPECIMEN Ordering Facility: [facility] Address: [address] [place] [address] Performed By: #### 5 7021-8 #### [facility] CLIA [id number] [address] [place] [address] [place] URINALYSIS, REFLEX MICROSCOP ICon 12-20-2023 Bilirubin Ql (U) Negative Negative [facility] Clarity (Unsp spec) Clear Clear [facility] Color (U) Light Yellow Yellow [facility] Glucose Test strip (U) [Mass/Vol] Negative Trace, Negative [facility] Hemoglobin Ql (U) Negative Negative, Trace [facility] Ketones Ql (U) Negative Negative, Trace [facility] Leukocyte esterase Test strip Ql (U) Negative Negative, 25 Mary/uL [facility] Nitrite Ql (U) Negative Negative [facility] pH (U) 6.0 [pH] 5.0 - 8.0 [facility] Protein (U) [Mass/Vol] Negative Trace , Negative [facility] Specific gravity (U) [Rel density] 1.010 1.005 - 1.030 [facility] Urobilinogen Ql (U) Normal Normal [facility] Bilirubin Ql (U) Negative Normal Negative [facility] Comment on above: Order Comment: Speci men Type: URINE SPECIMEN Ordering Facility: [facility] Address: [address] [place] [address] Performed By: #### L [id number] #### [facility] CLIA [id number] [address] [place] [address] [place] Clarity (Unsp spec) Clear Normal Clear [facility] Comment on above: Order Comment: Speci men Type: URINE SPECIMEN Ordering Facility: [facility] Address: [address] [place] [address] Performed By: #### L [id number] #### [facility] CLIA [id number] [address] [place] [address] [place] Color (U) Light Yellow Normal Yellow [facility] Comment on above: Order Comment: Speci men Type: URINE SPECIMEN Ordering Facility: [facility] Address: [address] [place] [address] Performed By: #### L [id number] #### [facility] CLIA [id number] [address] [place] [address] [place] Glucose Test strip (U) [Mass/Vol] Negative Normal Trace, Negative [facility] Comment on above: Order Comment: Speci men Type: URINE SPECIMEN Ordering Facility: [facility] Address: [address] [id number] Performed By: #### L [id number] #### [facility] CLIA [id number] [address] [place] [address] [place] Hemoglobin Ql (U) Negative Normal Negative, Trace [facility] Comment on above: Order Comment: Speci men Type: URINE SPECIMEN Ordering Facility: [facility] Address: [address] [place] [address] Performed By: #### L [id number] #### [facility] CLIA [id number] [address] [place] [address] [place] Ketones Ql (U) Negative Normal Negative, Trace [facility] Comment on above: Order Comment: Speci men Type: URINE SPECIMEN Ordering Facility: [facility] Address: [address] [place] [address] Performed By: #### L [id number] #### [facility] CLIA [id number] [address] [place] [address] [place] Leukocyte esterase Test strip Ql (U) Negative Normal Negative, 25 Mary/uL [facility] Comment on above: Order Comment: Speci men Type: URINE SPECIMEN Ordering Facility: [facility] Address: [address] [place] [address] Performed By: #### L [id number] #### [facility] CLIA [id number] [address] [place] [address] [place] Nitrite Ql (U) Negative Normal Negative [facility] Comment on above: Order Comment: Speci men Type: URINE SPECIMEN Ordering Facility: [facility] Address: [address] [place] [address] Performed By: #### L [id number] #### [facility] CLIA [id number] [address] [place] [address] [place] pH (U) 6.0 [pH] Normal 5.0-8.0 [facility] Comment on above: Order Comment: Speci men Type: URINE SPECIMEN Ordering Facility: [facility] Address: [address] [place] [address] Performed By: #### L [id number] #### [facility] CLIA [id number] [address] [place] [address] [place] Protein (U) [Mass/Vol] Negative Normal Trace , Negative [facility] Comment on above: Order Comment: Speci men Type: URINE SPECIMEN Ordering Facility: [facility] Address: [address] [place] [address] Performed By: #### L [id number] #### [facility] CLIA [id number] [address] [place] [address] [place] Specific gravity (U) [Rel density] 1.010 Normal 1.005-1.[address] [facility] Comment on above: Order Comment: Speci men Type: URINE SPECIMEN Ordering Facility: [facility] Address: [address] [place] [address] Performed By: #### L [id number] #### [facility] CLIA [id number] [address] [place] [address] [place] Urobilinogen Ql (U) Normal Normal Normal [facility] Comment on above: Order Comment: Speci men Type: URINE SPECIMEN Ordering Facility: [facility] Address: [address] [place] [address] Performed By: #### L [id number] #### [facility] CLIA [id number] [address] [place] [address] [place] Absolute lymphocyte countOrd ered By: Alfredo Phipps on 12-09-2023 Lymphocytes Auto (Unsp spec) [#/Vol] 2.24 10*3/uL 0.83-4.51 [facility] Automated lymphocyte count a s percentage of total leukocytesOrdered By: Alfredo Phipps on 12-09-2023 Lymphocytes/100 WBC Auto (Unsp spec) 23.2 % 19-41 [facility] Basophil percentageOrdered B y: Alfredo Phipps on 12-09-2023 Basophil percentage 3.8 mg/dL 2.5-4.9 [facility] Basophils/100 WBC (Bld) 1.0 % 0-1 [facility] Chloride [Moles/Vol] 110 mmol/L 98-107 [facility] Eosinophils/100 WBC (Bld) 3.9 % 0-5 [facility] Glucose [Mass/Vol] 129 mg/dL 74-106 [facility] Comment on above: Fasting Glucose resu lt greater than or equal to 126 mg/dL suggests DIABETES MELLITUS per A.D.A. criteria. Hemoglobin (Bld) [Mass/Vol] 13.9 g/dL 13.0-16.5 [facility] Monocytes/100 WBC (Bld) 9.3 % 0-10 [facility] Neutrophils (Bld) [#/Vol] 6.0 10*3/uL 2.0-7.7 [facility] Neutrophils/100 WBC (Bld) 62.2 % 47-70 [facility] Potassium [Moles/Vol] 3.5 mmol/L 3.5-5.1 [facility] Sodium [Moles/Vol] 138 mmol/L 136-145 [facility] WBC (Bld) [#/Vol] 9.7 10*3/uL 4.4-11.0 [facility] Determination of erythrocyte mean corpuscular volume (MCV)Ordered By: Alfredo Phipps on 12-09-2023 MCV (RBC) [Entitic vol] 90.2 fL 80-94 [facility] Erythrocyte distribution wid th ratioOrdered By: Alfredo Phipps on 12-09-2023 Erythrocyte distribution width (RBC) [Ratio] 13.1 % 11.6-14.6 [facility] Erythrocyte distribution wid th standard deviationOrdered By: Alfredo Phipps on 12-09-2023 Erythrocyte distribution width (RBC) [Entitic vol] 43.2 fL 35.1-43.9 [facility] Hematocrit Auto (Bld) [Volum e fraction]Ordered By: Alfredo Phipps on 12-09-2023 Hematocrit (Bld) [Volume fraction] 43.2 % 40-54 [facility] Immature granulocytes/100 WB C Auto (Bld)Ordered By: Alfredo Phipps on 12-09-2023 Immature granulocytes/100 WBC (Bld) 0.400 % 0.0-0.9 [facility] Comment on above: IG% - Immature Granu locytes (promyelocytes, myelocytes and metamyelocytes) > 1% indicates that a LEFT SHIFT is Present. Laboratory - Chemistry and C hemistry - challengeOrdered By: Alfredo Phipps on 12-09-2023 CO2 [Moles/Vol] 21.0 mmol/L 21.0-32.0 [facility] Urea nitrogen/Creatinine [Mass ratio] 7.4 mg/mg 10-20 [facility] Laboratory - Hematology and Cell countsOrdered By: Alfredo Phipps on 12-09-2023 MCH (RBC) [Entitic mass] 29.0 pg 27.0-32.0 [facility] MCHC (RBC) [Mass/Vol] 32.2 g/dL 32-36 [facility] Nucleated RBC/100 WBC (Bld) [Ratio] 0 % 0-5 [facility] Platelets (Bld) [#/Vol] 235 10*3/uL 150-450 [facility] No Panel InformationOrdered By: Alfredo Phipps on 12-09-2023 Estimated GFR (MDRD) Amer 44 mL/min >60 [facility] Comment on above: GFR Calc Estimated GFR (MDRD) Non-Af Amer 36 mL/min >60 [facility] Comment on above: Non- GFR Calc [place] Level 0.40 mmol/L 0.60-1.20 [facility] Platelet mean volume Naresh-Ec ker (Bld) [Entitic vol]Ordered By: Alfredo Phipps on 12-09-2023 Platelet mean volume (Bld) [Entitic vol] 9.5 fL 6.2-12.0 [facility] RBC Auto (Bld) [#/Vol]Ordere d By: Alfredo Phipps on 12-09-2023 RBC (Bld) [#/Vol] 4.79 10*6/uL 4.6-6.2 [facility] Serum or plasma calcium you urement (mass/volume)Ordered By: Alfredo Phipps on 12-09-2023 Calcium [Mass/Vol] 9.3 mg/dL 8.5-10.1 [facility] Serum or plasma creatinine m easurement (mass/volume)Ordered By: Alfredo Phipps on 12-09-2023 Creatinine [Mass/Vol] 2.02 mg/dL 0.70-1.30 [facility] Comment on above: The validity of the calculated GFR & GFRAA in patients over 70 years has not been determined. Clinical correlation is essential. Serum or plasma urea nitroge n measurement (mass/volume)Ordered By: Alfredo Phipps on 12-09-2023 Urea nitrogen [Mass/Vol] 15 mg/dL 7-18 [facility] Thin prep Papanicolaou smear with manual screeningOrdered By: Alfredo Phipps on 12-09-2023 Thin prep Papanicolaou smear with manual screening 3.2 g/dL 3.2-5.0 [facility] Urine creatinine measurement (mass/volume)Ordered By: Adam Ferraro on 11-16-2023 Creatinine (U) [Mass/Vol] 178.00 mg/dL NO RANGE EST. [facility] Urine protein measurement (m ass/volume)Ordered By: Adam Ferraro on 11-16-2023 Protein (U) [Mass/Vol] 28.7 mg/dL 0.0-11.8 [facility] Urine protein/creatinine mas s ratioOrdered By: Adam Ferraro on 11-16-2023 Protein/Creatinine (U) [Mass ratio] 161 mg/g CRE 0-200 [facility] Absolute lymphocyte countOrd ered By: Adam Ferraro on 11-11-2023 Lymphocytes Auto (Unsp spec) [#/Vol] 3.10 10*3/uL 0.83-4.51 [facility] Basophil percentageOrdered B y: Adam Ferraro on 11-11-2023 Basophil percentage 3.6 mg/dL 2.5-4.9 [facility] Basophils/100 WBC (Bld) 0.8 % 0-1 [facility] Chloride [Moles/Vol] 108 mmol/L 98-107 [facility] Eosinophils/100 WBC (Bld) 3.4 % 0-5 [facility] Glucose [Mass/Vol] 120 mg/dL 74-106 [facility] Comment on above: Fasting Glucose resu lt from 100 to 125 mg/dL suggests IMPAIRED HOMEOSTASIS per A.D.A. criteria. Neutrophils (Bld) [#/Vol] 7.1 10*3/uL 2.0-7.7 [facility] Neutrophils/100 WBC (Bld) 61.0 % 47-70 [facility] Potassium [Moles/Vol] 3.6 mmol/L 3.5-5.1 [facility] Sodium [Moles/Vol] 140 mmol/L 136-145 [facility] WBC (Bld) [#/Vol] 11.6 10*3/uL 4.4-11.0 [facility] Blood erythrocytes count (nu mber/volume)Ordered By: Adam Ferraro on 11-11-2023 RBC (Bld) [#/Vol] 4.98 10*6/uL 4.6-6.2 [facility] Blood hemoglobin measurement (mass/volume)Ordered By: Adam Ferraro on 11-11-2023 Hemoglobin (Bld) [Mass/Vol] 14.4 g/dL 13.0-16.5 [facility] Blood lymphocytes/100 leukoc ytesOrdered By: Adam Ferraro on 11-11-2023 Lymphocytes/100 WBC (Bld) 26.7 % 19-41 [facility] Blood monocytes/100 leukocyt esOrdered By: Adam Ferraro on 11-11-2023 Monocytes/100 WBC (Bld) 7.3 % 0-10 [facility] Blood platelet mean volumeOr dered By: Adam Ferraro on 11-11-2023 Platelet mean volume (Bld) [Entitic vol] 9.4 fL 6.2-12.0 [facility] Determination of erythrocyte mean corpuscular volume (MCV)Ordered By: Adam Ferraro on 11-11-2023 MCV (RBC) [Entitic vol] 89.8 fL 80-94 [facility] Hematocrit Auto (Bld) [Volum e fraction]Ordered By: Adam Ferraro on 11-11-2023 Hematocrit (Bld) [Volume fraction] 44.7 % 40-54 [facility] Laboratory - Chemistry and C hemistry - challengeOrdered By: Adam Ferraro on 11-11-2023 CO2 [Moles/Vol] 24.0 mmol/L 21.0-32.0 [facility] Urea nitrogen/Creatinine [Mass ratio] 7.8 mg/mg 10-20 [facility] Laboratory - Hematology and Cell countsOrdered By: Adam Ferraro on 11-11-2023 Erythrocyte distribution width (RBC) [Entitic vol] 42.7 fL 35.1-43.9 [facility] Erythrocyte distribution width (RBC) [Ratio] 13.1 % 11.6-14.6 [facility] Immature granulocytes/100 WBC (Bld) 0.800 % 0.0-0.9 [facility] Comment on above: IG% - Immature Granu locytes (promyelocytes, myelocytes and metamyelocytes) > 1% indicates that a LEFT SHIFT is Present. MCH (RBC) [Entitic mass] 28.9 pg 27.0-32.0 [facility] Nucleated RBC/100 WBC (Bld) [Ratio] 0 % 0-5 [facility] MCHC Auto (RBC) [Mass/Vol]Or dered By: Adam Ferraro on 11-11-2023 MCHC (RBC) [Mass/Vol] 32.2 g/dL 32-36 [facility] No Panel InformationOrdered By: Adam Ferraro on 11-11-2023 Estimated GFR (MDRD) Amer 37 mL/min >60 [facility] Comment on above: GFR Calc Estimated GFR (MDRD) Non-Af Amer 31 mL/min >60 [facility] Comment on above: Non- GFR Calc [place] Level 0.60 mmol/L 0.60-1.20 [facility] Platelets bldOrdered By: Benoit Ferraro on 11-11-2023 Platelets (Bld) [#/Vol] 252 10*3/uL 150-450 [facility] Serum or plasma albumin you urement (mass/volume)Ordered By: Adam Ferraro on 11-11-2023 Albumin [Mass/Vol] 3.1 g/dL 3.2-5.0 [facility] Serum or plasma calcium you urement (mass/volume)Ordered By: Adam Ferraro on 11-11-2023 Calcium [Mass/Vol] 8.9 mg/dL 8.5-10.1 [facility] Serum or plasma creatinine m easurement (mass/volume)Ordered By: Adam Ferraro on 11-11-2023 Creatinine [Mass/Vol] 2.31 mg/dL 0.70-1.30 [facility] Comment on above: The validity of the calculated GFR & GFRAA in patients over 70 years has not been determined. Clinical correlation is essential. Serum or plasma urea nitroge n measurement (mass/volume)Ordered By: Adam Ferraro on 11-11-2023 Urea nitrogen [Mass/Vol] 18 mg/dL 7-18 [facility] Serum or plasma uric acid me asurement (mass/volume)Ordered By: Adam Ferraro on 10-27-2023 Urate [Mass/Vol] 8.1 mg/dL 3.5-7.2 [facility] Comment on above: The drugs N-Acetylcy steine and Metamizole may falsely depress this assay. Absolute lymphocyte countOrd ered By: Alfredo Phipps on 10-14-2023 Lymphocytes Auto (Unsp spec) [#/Vol] 1.52 10*3/uL 0.83-4.51 [facility] Basophil percentageOrdered B y: Alfredo Phipps on 10-14-2023 Basophil percentage 3.2 mg/dL 2.5-4.9 [facility] Basophils/100 WBC (Bld) 1.2 % 0-1 [facility] Chloride [Moles/Vol] 110 mmol/L 98-107 [facility] Eosinophils/100 WBC (Bld) 5.0 % 0-5 [facility] Glucose [Mass/Vol] 151 mg/dL 74-106 [facility] Comment on above: Fasting Glucose resu lt greater than or equal to 126 mg/dL suggests DIABETES MELLITUS per A.D.A. criteria. Neutrophils (Bld) [#/Vol] 6.6 10*3/uL 2.0-7.7 [facility] Neutrophils/100 WBC (Bld) 68.8 % 47-70 [facility] Potassium [Moles/Vol] 3.8 mmol/L 3.5-5.1 [facility] Sodium [Moles/Vol] 141 mmol/L 136-145 [facility] WBC (Bld) [#/Vol] 9.5 10*3/uL 4.4-11.0 [facility] Blood erythrocytes count (nu mber/volume)Ordered By: Alfredo Phipps on 10-14-2023 RBC (Bld) [#/Vol] 4.51 10*6/uL 4.6-6.2 [facility] Blood hemoglobin measurement (mass/volume)Ordered By: Alfredo Phipps on 10-14-2023 Hemoglobin (Bld) [Mass/Vol] 13.0 g/dL 13.0-16.5 [facility] Blood lymphocytes/100 leukoc ytesOrdered By: Alfredo Phipps on 10-14-2023 Lymphocytes/100 WBC (Bld) 15.9 % 19-41 [facility] Blood monocytes/100 leukocyt esOrdered By: Alfredo Phipps on 10-14-2023 Monocytes/100 WBC (Bld) 8.3 % 0-10 [facility] Blood platelet mean volumeOr dered By: Alfredo Phipps on 10-14-2023 Platelet mean volume (Bld) [Entitic vol] 9.7 fL 6.2-12.0 [facility] Determination of erythrocyte mean corpuscular volume (MCV)Ordered By: Alfredo Phipps on 10-14-2023 MCV (RBC) [Entitic vol] 90.2 fL 80-94 [facility] Hematocrit Auto (Bld) [Volum e fraction]Ordered By: Alfredo Phipps on 10-14-2023 Hematocrit (Bld) [Volume fraction] 40.7 % 40-54 [facility] Laboratory - Chemistry and C hemistry - challengeOrdered By: Alfredo Phipps on 10-14-2023 CO2 [Moles/Vol] 26.0 mmol/L 21.0-32.0 [facility] Urea nitrogen/Creatinine [Mass ratio] 7.5 mg/mg 10-20 [facility] Laboratory - Hematology and Cell countsOrdered By: Alfredo Phipps on 10-14-2023 Erythrocyte distribution width (RBC) [Entitic vol] 43.6 fL 35.1-43.9 [facility] Erythrocyte distribution width (RBC) [Ratio] 13.2 % 11.6-14.6 [facility] Immature granulocytes/100 WBC (Bld) 0.800 % 0.0-0.9 [facility] Comment on above: IG% - Immature Granu locytes (promyelocytes, myelocytes and metamyelocytes) > 1% indicates that a LEFT SHIFT is Present. MCH (RBC) [Entitic mass] 28.8 pg 27.0-32.0 [facility] Nucleated RBC/100 WBC (Bld) [Ratio] 0 % 0-5 [facility] MCHC Auto (RBC) [Mass/Vol]Or dered By: Alfredo Phipps on 10-14-2023 MCHC (RBC) [Mass/Vol] 31.9 g/dL 32-36 [facility] No Panel InformationOrdered By: Alfredo Phipps on 10-14-2023 Estimated GFR (MDRD) Amer 41 mL/min >60 [facility] Comment on above: GFR Calc Estimated GFR (MDRD) Non-Af Amer 34 mL/min >60 [facility] Comment on above: Non- GFR Calc [place] Level 0.50 mmol/L 0.60-1.20 [facility] Platelets bldOrdered By: Jennifer Phipps on 10-14-2023 Platelets (Bld) [#/Vol] 224 10*3/uL 150-450 [facility] Serum or plasma albumin you urement (mass/volume)Ordered By: Alfredo Phipps on 10-14-2023 Albumin [Mass/Vol] 2.9 g/dL 3.2-5.0 [facility] Serum or plasma calcium you urement (mass/volume)Ordered By: Alfredo Phipps on 10-14-2023 Calcium [Mass/Vol] 8.5 mg/dL 8.5-10.1 [facility] Serum or plasma creatinine m easurement (mass/volume)Ordered By: Alfredo Phipps on 10-14-2023 Creatinine [Mass/Vol] 2.12 mg/dL 0.70-1.30 [facility] Comment on above: The validity of the calculated GFR & GFRAA in patients over 70 years has not been determined. Clinical correlation is essential. Serum or plasma urea nitroge n measurement (mass/volume)Ordered By: Alfredo Phipps on 10-14-2023 Urea nitrogen [Mass/Vol] 16 mg/dL 7-18 [facility] Urine creatinine measurement (mass/volume)Ordered By: Alfredo Phipps on 10-14-2023 Creatinine (U) [Mass/Vol] 195.00 mg/dL NO RANGE EST. [facility] Urine protein measurement (m ass/volume)Ordered By: Alfredo Phipps on 10-14-2023 Protein (U) [Mass/Vol] 23.4 mg/dL 0.0-11.8 [facility] Urine protein/creatinine mas s ratioOrdered By: Alfredo Phipps on 10-14-2023 Protein/Creatinine (U) [Mass ratio] 120 mg/g CRE 0-200 [facility] Serum or plasma uric acid me asurement (mass/volume)Ordered By: Adam Ferraro on 09-27-2023 Urate [Mass/Vol] 7.3 mg/dL 3.5-7.2 [facility] Comment on above: The drugs N-Acetylcy steine and Metamizole may falsely depress this assay. Absolute lymphocyte countOrd ered By: Alfredo Phipps on 09-16-2023 Lymphocytes Auto (Unsp spec) [#/Vol] 1.78 10*3/uL 0.83-4.51 [facility] Basophil percentageOrdered B y: Alfredo Phipps on 09-16-2023 Basophil percentage 4.3 mg/dL 2.5-4.9 [facility] Basophils/100 WBC (Bld) 1.0 % 0-1 [facility] Chloride [Moles/Vol] 109 mmol/L 98-107 [facility] Eosinophils/100 WBC (Bld) 4.4 % 0-5 [facility] Glucose [Mass/Vol] 143 mg/dL 74-106 [facility] Comment on above: Fasting Glucose resu lt greater than or equal to 126 mg/dL suggests DIABETES MELLITUS per A.D.A. criteria. Neutrophils (Bld) [#/Vol] 6.3 10*3/uL 2.0-7.7 [facility] Neutrophils/100 WBC (Bld) 67.0 % 47-70 [facility] Potassium [Moles/Vol] 4.1 mmol/L 3.5-5.1 [facility] Sodium [Moles/Vol] 139 mmol/L 136-145 [facility] WBC (Bld) [#/Vol] 9.4 10*3/uL 4.4-11.0 [facility] Blood erythrocytes count (nu mber/volume)Ordered By: Alfreod Phipps on 09-16-2023 RBC (Bld) [#/Vol] 4.63 10*6/uL 4.6-6.2 [facility] Blood hemoglobin measurement (mass/volume)Ordered By: Alfredo Phipps on 09-16-2023 Hemoglobin (Bld) [Mass/Vol] 13.4 g/dL 13.0-16.5 [facility] Blood lymphocytes/100 leukoc ytesOrdered By: Alfredo Phipps on 09-16-2023 Lymphocytes/100 WBC (Bld) 19.0 % 19-41 [facility] Blood monocytes/100 leukocyt esOrdered By: Alfredo Phipps on 09-16-2023 Monocytes/100 WBC (Bld) 8.3 % 0-10 [facility] Blood platelet mean volumeOr dered By: Alfredo Phipps on 09-16-2023 Platelet mean volume (Bld) [Entitic vol] 9.6 fL 6.2-12.0 [facility] Determination of erythrocyte mean corpuscular volume (MCV)Ordered By: Alfredo Phipps on 09-16-2023 MCV (RBC) [Entitic vol] 90.5 fL 80-94 [facility] Hematocrit Auto (Bld) [Volum e fraction]Ordered By: Alfredo Phipps on 09-16-2023 Hematocrit (Bld) [Volume fraction] 41.9 % 40-54 [facility] Laboratory - Chemistry and C hemistry - challengeOrdered By: Alfredo Phipps on 09-16-2023 CO2 [Moles/Vol] 23.0 mmol/L 21.0-32.0 [facility] Urea nitrogen/Creatinine [Mass ratio] 11.6 mg/mg 10-20 [facility] Laboratory - Hematology and Cell countsOrdered By: Alfredo Phipps on 09-16-2023 Erythrocyte distribution width (RBC) [Entitic vol] 46.1 fL 35.1-43.9 [facility] Erythrocyte distribution width (RBC) [Ratio] 13.9 % 11.6-14.6 [facility] Immature granulocytes/100 WBC (Bld) 0.300 % 0.0-0.9 [facility] Comment on above: IG% - Immature Granu locytes (promyelocytes, myelocytes and metamyelocytes) > 1% indicates that a LEFT SHIFT is Present. MCH (RBC) [Entitic mass] 28.9 pg 27.0-32.0 [facility] Nucleated RBC/100 WBC (Bld) [Ratio] 0 % 0-5 [facility] MCHC Auto (RBC) [Mass/Vol]Or dered By: Alfredo Phipps on 09-16-2023 MCHC (RBC) [Mass/Vol] 32.0 g/dL 32-36 [facility] No Panel InformationOrdered By: Alfredo Phipps on 09-16-2023 Estimated GFR (MDRD) Amer 45 mL/min >60 [facility] Comment on above: GFR Calc Estimated GFR (MDRD) Non-Af Amer 37 mL/min >60 [facility] Comment on above: Non- GFR Calc [place] Level 0.60 mmol/L 0.60-1.20 [facility] Platelets bldOrdered By: Jennifer Phipps on 09-16-2023 Platelets (Bld) [#/Vol] 212 10*3/uL 150-450 [facility] Serum or plasma albumin you urement (mass/volume)Ordered By: Alfredo Phipps on 09-16-2023 Albumin [Mass/Vol] 2.9 g/dL 3.2-5.0 [facility] Serum or plasma calcium you urement (mass/volume)Ordered By: Alfredo Phipps on 09-16-2023 Calcium [Mass/Vol] 9.0 mg/dL 8.5-10.1 [facility] Serum or plasma creatinine m easurement (mass/volume)Ordered By: Alfredo Phipps on 09-16-2023 Creatinine [Mass/Vol] 1.98 mg/dL 0.70-1.30 [facility] Comment on above: The validity of the calculated GFR & GFRAA in patients over 70 years has not been determined. Clinical correlation is essential. Serum or plasma urea nitroge n measurement (mass/volume)Ordered By: Alfredo Phipps on 09-16-2023 Urea nitrogen [Mass/Vol] 23 mg/dL 7-18 [facility] Urine creatinine measurement (mass/volume)Ordered By: Alfredo Phipps on 09-16-2023 Creatinine (U) [Mass/Vol] 44.20 mg/dL NO RANGE EST. [facility] Urine protein measurement (m ass/volume)Ordered By: Alfredo Phipps on 09-16-2023 Protein (U) [Mass/Vol] mg/dL 0.0-11.8 [facility] Urine protein/creatinine mas s ratioOrdered By: Alfredo Phipps on 09-16-2023 Protein/Creatinine (U) [Mass ratio] 131 mg/g CRE 0-200 [facility] Urine creatinine measurement (mass/volume)Ordered By: Adam Ferraro on 08-22-2023 Creatinine (U) [Mass/Vol] 105.00 mg/dL NO RANGE EST. [facility] Urine protein measurement (m ass/volume)Ordered By: Adam Ferraro on 08-22-2023 Protein (U) [Mass/Vol] 19.3 mg/dL 0.0-11.8 [facility] Urine protein/creatinine mas s ratioOrdered By: Adam Ferraro on 08-22-2023 Protein/Creatinine (U) [Mass ratio] 184 mg/g CRE 0-200 [facility] Absolute lymphocyte countOrd ered By: Adam Ferraro on 08-19-2023 Lymphocytes Auto (Unsp spec) [#/Vol] 2.02 10*3/uL 0.83-4.51 [facility] Basophil percentageOrdered B y: Adam Ferraro on 08-19-2023 Basophil percentage 4.0 mg/dL 2.5-4.9 [facility] Basophils/100 WBC (Bld) 0.7 % 0-1 [facility] Chloride [Moles/Vol] 108 mmol/L 98-107 [facility] Eosinophils/100 WBC (Bld) 4.4 % 0-5 [facility] Glucose [Mass/Vol] 161 mg/dL 74-106 [facility] Comment on above: Fasting Glucose resu lt greater than or equal to 126 mg/dL suggests DIABETES MELLITUS per A.D.A. criteria. Neutrophils (Bld) [#/Vol] 7.4 10*3/uL 2.0-7.7 [facility] Neutrophils/100 WBC (Bld) 66.8 % 47-70 [facility] Potassium [Moles/Vol] 3.9 mmol/L 3.5-5.1 [facility] Sodium [Moles/Vol] 140 mmol/L 136-145 [facility] WBC (Bld) [#/Vol] 11.1 10*3/uL 4.4-11.0 [facility] Blood erythrocytes count (nu mber/volume)Ordered By: Adam Ferraro on 08-19-2023 RBC (Bld) [#/Vol] 4.67 10*6/uL 4.6-6.2 [facility] Blood hemoglobin measurement (mass/volume)Ordered By: Adam Ferraro on 08-19-2023 Hemoglobin (Bld) [Mass/Vol] 13.5 g/dL 13.0-16.5 [facility] Blood lymphocytes/100 leukoc ytesOrdered By: Adam Ferraro on 08-19-2023 Lymphocytes/100 WBC (Bld) 18.3 % 19-41 [facility] Blood monocytes/100 leukocyt esOrdered By: Adam Ferraro on 08-19-2023 Monocytes/100 WBC (Bld) 9.1 % 0-10 [facility] Blood platelet mean volumeOr dered By: Adam Ferraro on 08-19-2023 Platelet mean volume (Bld) [Entitic vol] 9.4 fL 6.2-12.0 [facility] Determination of erythrocyte mean corpuscular volume (MCV)Ordered By: Adam Ferraro on 08-19-2023 MCV (RBC) [Entitic vol] 90.1 fL 80-94 [facility] Hematocrit Auto (Bld) [Volum e fraction]Ordered By: Adam Ferraro on 08-19-2023 Hematocrit (Bld) [Volume fraction] 42.1 % 40-54 [facility] Laboratory - Chemistry and C hemistry - challengeOrdered By: Adam Ferraro on 08-19-2023 CO2 [Moles/Vol] 26.0 mmol/L 21.0-32.0 [facility] Urea nitrogen/Creatinine [Mass ratio] 10.9 mg/mg 10-20 [facility] Laboratory - Hematology and Cell countsOrdered By: Adam Ferraro on 08-19-2023 Erythrocyte distribution width (RBC) [Entitic vol] 45.8 fL 35.1-43.9 [facility] Erythrocyte distribution width (RBC) [Ratio] 13.8 % 11.6-14.6 [facility] Immature granulocytes/100 WBC (Bld) 0.700 % 0.0-0.9 [facility] Comment on above: IG% - Immature Granu locytes (promyelocytes, myelocytes and metamyelocytes) > 1% indicates that a LEFT SHIFT is Present. MCH (RBC) [Entitic mass] 28.9 pg 27.0-32.0 [facility] Nucleated RBC/100 WBC (Bld) [Ratio] 0 % 0-5 [facility] MCHC Auto (RBC) [Mass/Vol]Or dered By: Adam Ferraro on 08-19-2023 MCHC (RBC) [Mass/Vol] 32.1 g/dL 32-36 [facility] No Panel InformationOrdered By: Adam Ferraro on 08-19-2023 Estimated GFR (MDRD) Amer 44 mL/min >60 [facility] Comment on above: GFR Calc Estimated GFR (MDRD) Non-Af Amer 36 mL/min >60 [facility] Comment on above: Non- GFR Calc [place] Level 0.50 mmol/L 0.60-1.20 [facility] Platelets bldOrdered By: Benoit Ferraro on 08-19-2023 Platelets (Bld) [#/Vol] 218 10*3/uL 150-450 [facility] Serum or plasma albumin you urement (mass/volume)Ordered By: Adam Ferraro on 08-19-2023 Albumin [Mass/Vol] 2.9 g/dL 3.2-5.0 [facility] Serum or plasma calcium you urement (mass/volume)Ordered By: Adam Ferraro on 08-19-2023 Calcium [Mass/Vol] 9.0 mg/dL 8.5-10.1 [facility] Serum or plasma creatinine m easurement (mass/volume)Ordered By: Adam Ferraro on 08-19-2023 Creatinine [Mass/Vol] 2.01 mg/dL 0.70-1.30 [facility] Comment on above: The validity of the calculated GFR & GFRAA in patients over 70 years has not been determined. Clinical correlation is essential. Serum or plasma urea nitroge n measurement (mass/volume)Ordered By: Adam Ferraro on 08-19-2023 Urea nitrogen [Mass/Vol] 22 mg/dL 7-18 [facility] Whole blood hemoglobin A1c/t otal hemoglobin ratio (mass fraction)Ordered By: Adam Ferraro on 08-19-2023 HbA1c (Bld) [Mass fraction] 7.2 % 3.8-5.6 [facility] Comment on above: Normal < 5.7 % Predi abetic 5.7 - 6.4 % Diabetic >or= 6.5 % Please note range changes. Basophil percentageOrdered B y: Adam Ferraro on 07-28-2023 Cholesterol [Mass/Vol] 124 mg/dL <200 [facility] Comment on above: <200 mg/dL Desirable 200-240 mg/dL Borderline >240 mg/dL High Risk Triglyceride [Mass/Vol] 234 mg/dL <199 [facility] Comment on above: The drugs N-Acetylcy steine and Metamizole may falsely depress this assay.Serum Triglycerides Reference Interval Normal <150 mg/dL Borderline high 150 - 199 mg/dL High 200 - 499 mg/dL Very High > or = 500 mg/dL Serum or plasma cholesterol in HDL measurement (mass/volume)Ordered By: Adam Ferraro on 07-28-2023 Cholesterol in HDL [Mass/Vol] 36 mg/dL >40 [facility] Comment on above: The drugs N-Acetylcy steine and Metamizole may falsely depress this assay. Reference Range HDL <40 mg/dL Low HDL Cholesterol HDL >or= 60 mg/dL High HDL Cholesterol Serum or plasma cholesterol in VLDL measurement (mass/volume)Ordered By: Adam Ferraro on 07-28-2023 Cholesterol in VLDL [Mass/Vol] 47 mg/dL 5-40 [facility] Serum or plasma low density lipoprotein (LDL) cholesterol measurement (mass/volume)Ordered By: Adam Ferraro on 07-28-2023 Cholesterol in LDL [Mass/Vol] 41 mg/dL 0-130 [facility] Serum or plasma uric acid me asurement (mass/volume)Ordered By: Adam Ferraro on 07-28-2023 Urate [Mass/Vol] 6.6 mg/dL 3.5-7.2 [facility] Comment on above: The drugs N-Acetylcy steine and Metamizole may falsely depress this assay. Urine creatinine measurement (mass/volume)Ordered By: Adam Ferraro on 07-24-2023 Creatinine (U) [Mass/Vol] 113.00 mg/dL NO RANGE EST. [facility] Urine protein measurement (m ass/volume)Ordered By: Adam Ferraro on 07-24-2023 Protein (U) [Mass/Vol] 15.1 mg/dL 0.0-11.8 [facility] Urine protein/creatinine mas s ratioOrdered By: Adam Ferraro on 07-24-2023 Protein/Creatinine (U) [Mass ratio] 134 mg/g CRE 0-200 [facility] Absolute lymphocyte countOrd ered By: Alfredo Phipps on 07-22-2023 Lymphocytes Auto (Unsp spec) [#/Vol] 1.60 10*3/uL 0.83-4.51 [facility] Basophil percentageOrdered B y: Alfredo Phipps on 07-22-2023 Basophil percentage 4.2 mg/dL 2.5-4.9 [facility] Basophils/100 WBC (Bld) 1.1 % 0-1 [facility] Chloride [Moles/Vol] 108 mmol/L 98-107 [facility] Eosinophils/100 WBC (Bld) 2.7 % 0-5 [facility] Glucose [Mass/Vol] 138 mg/dL 74-106 [facility] Comment on above: Fasting Glucose resu lt greater than or equal to 126 mg/dL suggests DIABETES MELLITUS per A.D.A. criteria. Neutrophils (Bld) [#/Vol] 6.9 10*3/uL 2.0-7.7 [facility] Neutrophils/100 WBC (Bld) 69.3 % 47-70 [facility] Potassium [Moles/Vol] 3.8 mmol/L 3.5-5.1 [facility] Sodium [Moles/Vol] 135 mmol/L 136-145 [facility] WBC (Bld) [#/Vol] 9.9 10*3/uL 4.4-11.0 [facility] Blood erythrocytes count (nu mber/volume)Ordered By: Alfredo Phipps on 07-22-2023 RBC (Bld) [#/Vol] 4.79 10*6/uL 4.6-6.2 [facility] Blood hemoglobin measurement (mass/volume)Ordered By: Alfredo Phipps on 07-22-2023 Hemoglobin (Bld) [Mass/Vol] 13.6 g/dL 13.0-16.5 [facility] Blood lymphocytes/100 leukoc ytesOrdered By: Alfredo Phipps on 07-22-2023 Lymphocytes/100 WBC (Bld) 16.1 % 19-41 [facility] Blood monocytes/100 leukocyt esOrdered By: Alfredo Phipps on 07-22-2023 Monocytes/100 WBC (Bld) 10.2 % 0-10 [facility] Blood platelet mean volumeOr dered By: Alfredo Phipps on 07-22-2023 Platelet mean volume (Bld) [Entitic vol] 10.8 fL 6.2-12.0 [facility] Determination of erythrocyte mean corpuscular volume (MCV)Ordered By: Alfredo Phipps on 07-22-2023 MCV (RBC) [Entitic vol] 98.1 fL 80-94 [facility] Hematocrit Auto (Bld) [Volum e fraction]Ordered By: Alfredo Phipps on 07-22-2023 Hematocrit (Bld) [Volume fraction] 47.0 % 40-54 [facility] Laboratory - Chemistry and C hemistry - challengeOrdered By: Alfredo Phipps on 07-22-2023 CO2 [Moles/Vol] 19.0 mmol/L 21.0-32.0 [facility] Urea nitrogen/Creatinine [Mass ratio] 10.7 mg/mg 10-20 [facility] Laboratory - Hematology and Cell countsOrdered By: Alfredo Phipps on 07-22-2023 Erythrocyte distribution width (RBC) [Entitic vol] 58.0 fL 35.1-43.9 [facility] Erythrocyte distribution width (RBC) [Ratio] 16.4 % 11.6-14.6 [facility] Immature granulocytes/100 WBC (Bld) 0.600 % 0.0-0.9 [facility] Comment on above: IG% - Immature Granu locytes (promyelocytes, myelocytes and metamyelocytes) > 1% indicates that a LEFT SHIFT is Present. MCH (RBC) [Entitic mass] 28.4 pg 27.0-32.0 [facility] Nucleated RBC/100 WBC (Bld) [Ratio] 0 % 0-5 [facility] MCHC Auto (RBC) [Mass/Vol]Or dered By: Alfredo Phipps on 07-22-2023 MCHC (RBC) [Mass/Vol] 28.9 g/dL 32-36 [facility] No Panel InformationOrdered By: Alfredo Phipps on 07-22-2023 Estimated GFR (MDRD) Amer 45 mL/min >60 [facility] Comment on above: GFR Calc Estimated GFR (MDRD) Non-Af Amer 37 mL/min >60 [facility] Comment on above: Non- GFR Calc [place] Level 0.60 mmol/L 0.60-1.20 [facility] Platelets bldOrdered By: Jennifer Phipps on 07-22-2023 Platelets (Bld) [#/Vol] 209 10*3/uL 150-450 [facility] Serum or plasma albumin you urement (mass/volume)Ordered By: Alfredo Phipps on 07-22-2023 Albumin [Mass/Vol] 2.6 g/dL 3.2-5.0 [facility] Serum or plasma calcium you urement (mass/volume)Ordered By: Alfredo Phipps on 07-22-2023 Calcium [Mass/Vol] 9.1 mg/dL 8.5-10.1 [facility] Serum or plasma creatinine m easurement (mass/volume)Ordered By: Alfredo Phipps on 07-22-2023 Creatinine [Mass/Vol] 1.97 mg/dL 0.70-1.30 [facility] Comment on above: The validity of the calculated GFR & GFRAA in patients over 70 years has not been determined. Clinical correlation is essential. Serum or plasma urea nitroge n measurement (mass/volume)Ordered By: Alfredo Phipps on 07-22-2023 Urea nitrogen [Mass/Vol] 21 mg/dL 7-18 [facility] Absolute lymphocyte countOrd ered By: Alfredo Phipps on 06-24-2023 Lymphocytes Auto (Unsp spec) [#/Vol] 2.04 10*3/uL 0.83-4.51 [facility] Basophil percentageOrdered B y: Alfredo Phipps on 06-24-2023 Basophil percentage 4.4 mg/dL 2.5-4.9 [facility] Basophils/100 WBC (Bld) 1.2 % 0-1 [facility] Chloride [Moles/Vol] 107 mmol/L 98-107 [facility] Eosinophils/100 WBC (Bld) 5.2 % 0-5 [facility] Glucose [Mass/Vol] 144 mg/dL 74-106 [facility] Comment on above: Fasting Glucose resu lt greater than or equal to 126 mg/dL suggests DIABETES MELLITUS per A.D.A. criteria. Neutrophils (Bld) [#/Vol] 5.9 10*3/uL 2.0-7.7 [facility] Neutrophils/100 WBC (Bld) 62.3 % 47-70 [facility] Potassium [Moles/Vol] 3.7 mmol/L 3.5-5.1 [facility] Sodium [Moles/Vol] 138 mmol/L 136-145 [facility] WBC (Bld) [#/Vol] 9.4 10*3/uL 4.4-11.0 [facility] Blood erythrocytes count (nu mber/volume)Ordered By: Alfredo Phipps on 06-24-2023 RBC (Bld) [#/Vol] 4.95 10*6/uL 4.6-6.2 [facility] Blood hemoglobin measurement (mass/volume)Ordered By: Alfredo Phipps on 06-24-2023 Hemoglobin (Bld) [Mass/Vol] 14.2 g/dL 13.0-16.5 [facility] Blood lymphocytes/100 leukoc ytesOrdered By: Alfredo Phipps on 06-24-2023 Lymphocytes/100 WBC (Bld) 21.7 % 19-41 [facility] Blood monocytes/100 leukocyt esOrdered By: Alfredo Phipps on 06-24-2023 Monocytes/100 WBC (Bld) 9.1 % 0-10 [facility] Blood platelet mean volumeOr dered By: Alfredo Phipps on 06-24-2023 Platelet mean volume (Bld) [Entitic vol] 9.8 fL 6.2-12.0 [facility] Determination of erythrocyte mean corpuscular volume (MCV)Ordered By: Alfredo Phipps on 06-24-2023 MCV (RBC) [Entitic vol] 88.5 fL 80-94 [facility] Hematocrit Auto (Bld) [Volum e fraction]Ordered By: Alfredo Phipps on 06-24-2023 Hematocrit (Bld) [Volume fraction] 43.8 % 40-54 [facility] Laboratory - Chemistry and C hemistry - challengeOrdered By: Alfredo Phipps on 06-24-2023 CO2 [Moles/Vol] 25.0 mmol/L 21.0-32.0 [facility] Urea nitrogen/Creatinine [Mass ratio] 11.5 mg/mg 10-20 [facility] Laboratory - Hematology and Cell countsOrdered By: Alfredo Phipps on 06-24-2023 Erythrocyte distribution width (RBC) [Entitic vol] 42.3 fL 35.1-43.9 [facility] Erythrocyte distribution width (RBC) [Ratio] 13.1 % 11.6-14.6 [facility] Immature granulocytes/100 WBC (Bld) 0.500 % 0.0-0.9 [facility] Comment on above: IG% - Immature Granu locytes (promyelocytes, myelocytes and metamyelocytes) > 1% indicates that a LEFT SHIFT is Present. MCH (RBC) [Entitic mass] 28.7 pg 27.0-32.0 [facility] Nucleated RBC/100 WBC (Bld) [Ratio] 0 % 0-5 [facility] MCHC Auto (RBC) [Mass/Vol]Or dered By: Alfredo Phipps on 06-24-2023 MCHC (RBC) [Mass/Vol] 32.4 g/dL 32-36 [facility] No Panel InformationOrdered By: Alfredo Phipps on 06-24-2023 Estimated GFR (MDRD) Amer 49 mL/min >60 [facility] Comment on above: GFR Calc Estimated GFR (MDRD) Non-Af Amer 40 mL/min >60 [facility] Comment on above: Non- GFR Calc [place] Level 0.60 mmol/L 0.60-1.20 [facility] Platelets bldOrdered By: Jennifer Phipps on 08-11-2023 Platelets (Bld) [#/Vol] 213 10*3/uL 150-450 [facility] Serum or plasma albumin you urement (mass/volume)Ordered By: Alfredo Phipps on 06-24-2023 Albumin [Mass/Vol] 2.9 g/dL 3.2-5.0 [facility] Serum or plasma calcium you urement (mass/volume)Ordered By: Alfredo Phipps on 06-24-2023 Calcium [Mass/Vol] 9.1 mg/dL 8.5-10.1 [facility] Serum or plasma creatinine m easurement (mass/volume)Ordered By: Alfredo Phipps on 06-24-2023 Creatinine [Mass/Vol] 1.83 mg/dL 0.70-1.30 [facility] Comment on above: The validity of the calculated GFR & GFRAA in patients over 70 years has not been determined. Clinical correlation is essential. Serum or plasma urea nitroge n measurement (mass/volume)Ordered By: Alfredo Phipps on 06-24-2023 Urea nitrogen [Mass/Vol] 21 mg/dL 7-18 [facility] Serum or plasma uric acid me asurement (mass/volume)Ordered By: Alfredo Phipps on 06-24-2023 Urate [Mass/Vol] 6.5 mg/dL 3.5-7.2 [facility] Comment on above: The drugs N-Acetylcy steine and Metamizole may falsely depress this assay. Urine creatinine measurement (mass/volume)Ordered By: Alfredo Phipps on 06-24-2023 Creatinine (U) [Mass/Vol] 127.00 mg/dL NO RANGE EST. [facility] Urine protein measurement (m ass/volume)Ordered By: Alfredo Phipps on 06-24-2023 Protein (U) [Mass/Vol] 19.9 mg/dL 0.0-11.8 [facility] Urine protein/creatinine mas s ratioOrdered By: Alfredo Phipps on 06-24-2023 Protein/Creatinine (U) [Mass ratio] 157 mg/g CRE 0-200 [facility] Urine creatinine measurement (mass/volume)Ordered By: Adam Ferraro on 05-30-2023 Creatinine (U) [Mass/Vol] 73.90 mg/dL NO RANGE EST. [facility] Urine protein measurement (m ass/volume)Ordered By: Adam Ferraro on 05-30-2023 Protein (U) [Mass/Vol] 18.0 mg/dL 0.0-11.8 [facility] Urine protein/creatinine mas s ratioOrdered By: Adam Ferraro on 05-30-2023 Protein/Creatinine (U) [Mass ratio] 244 mg/g CRE 0-200 [facility] Absolute lymphocyte countOrd ered By: Adam Ferraro on 05-27-2023 Lymphocytes Auto (Unsp spec) [#/Vol] 1.85 10*3/uL 0.83-4.51 [facility] Basophil percentageOrdered B y: Adam Ferraro on 05-27-2023 Basophil percentage 3.9 mg/dL 2.5-4.9 [facility] Basophils/100 WBC (Bld) 1.1 % 0-1 [facility] Chloride [Moles/Vol] 106 mmol/L 98-107 [facility] Eosinophils/100 WBC (Bld) 3.3 % 0-5 [facility] Glucose [Mass/Vol] 208 mg/dL 74-106 [facility] Comment on above: Glucose result great er than or equal to 200 mg/dLsuggests DIABETES MELLITUS per A.D.A. criteria. Neutrophils (Bld) [#/Vol] 5.6 10*3/uL 2.0-7.7 [facility] Neutrophils/100 WBC (Bld) 64.5 % 47-70 [facility] Potassium [Moles/Vol] 3.7 mmol/L 3.5-5.1 [facility] Sodium [Moles/Vol] 138 mmol/L 136-145 [facility] WBC (Bld) [#/Vol] 8.7 10*3/uL 4.4-11.0 [facility] Blood erythrocytes count (nu mber/volume)Ordered By: Adam Ferraro on 05-27-2023 RBC (Bld) [#/Vol] 4.98 10*6/uL 4.6-6.2 [facility] Blood hemoglobin measurement (mass/volume)Ordered By: Adam Ferraro on 05-27-2023 Hemoglobin (Bld) [Mass/Vol] 14.4 g/dL 13.0-16.5 [facility] Blood lymphocytes/100 leukoc ytesOrdered By: Adam Ferraro on 05-27-2023 Lymphocytes/100 WBC (Bld) 21.2 % 19-41 [facility] Blood monocytes/100 leukocyt esOrdered By: Adam Ferraro on 05-27-2023 Monocytes/100 WBC (Bld) 9.3 % 0-10 [facility] Blood platelet mean volumeOr dered By: Adam Ferraro on 05-27-2023 Platelet mean volume (Bld) [Entitic vol] 10.0 fL 6.2-12.0 [facility] Determination of erythrocyte mean corpuscular volume (MCV)Ordered By: Adam Ferraro on 05-27-2023 MCV (RBC) [Entitic vol] 89.6 fL 80-94 [facility] Hematocrit Auto (Bld) [Volum e fraction]Ordered By: Adam Ferraro on 05-27-2023 Hematocrit (Bld) [Volume fraction] 44.6 % 40-54 [facility] Laboratory - Chemistry and C hemistry - challengeOrdered By: Adma Ferraro on 05-27-2023 CO2 [Moles/Vol] 27.0 mmol/L 21.0-32.0 [facility] Urea nitrogen/Creatinine [Mass ratio] 11.5 mg/mg 10-20 [facility] Laboratory - Hematology and Cell countsOrdered By: Adam Ferraro on 05-27-2023 Erythrocyte distribution width (RBC) [Entitic vol] 42.2 fL 35.1-43.9 [facility] Erythrocyte distribution width (RBC) [Ratio] 13.0 % 11.6-14.6 [facility] Immature granulocytes/100 WBC (Bld) 0.600 % 0.0-0.9 [facility] Comment on above: IG% - Immature Granu locytes (promyelocytes, myelocytes and metamyelocytes) > 1% indicates that a LEFT SHIFT is Present. MCH (RBC) [Entitic mass] 28.9 pg 27.0-32.0 [facility] Nucleated RBC/100 WBC (Bld) [Ratio] 0 % 0-5 [facility] MCHC Auto (RBC) [Mass/Vol]Or dered By: Adam Ferraro on 05-27-2023 MCHC (RBC) [Mass/Vol] 32.3 g/dL 32-36 [facility] No Panel InformationOrdered By: Adam Ferraro on 05-27-2023 Estimated GFR (MDRD) Amer 52 mL/min >60 [facility] Comment on above: GFR Calc Estimated GFR (MDRD) Non-Af Amer 43 mL/min >60 [facility] Comment on above: Non- GFR Calc [place] Level 0.40 mmol/L 0.60-1.20 [facility] Platelets bldOrdered By: Benoit Ferraro on 05-27-2023 Platelets (Bld) [#/Vol] 211 10*3/uL 150-450 [facility] Serum or plasma albumin you urement (mass/volume)Ordered By: Adam Ferraro on 05-27-2023 Albumin [Mass/Vol] 2.9 g/dL 3.2-5.0 [facility] Serum or plasma calcium you urement (mass/volume)Ordered By: Adam Ferraro on 05-27-2023 Calcium [Mass/Vol] 9.2 mg/dL 8.5-10.1 [facility] Serum or plasma creatinine m easurement (mass/volume)Ordered By: Adam Ferraro on 05-27-2023 Creatinine [Mass/Vol] 1.74 mg/dL 0.70-1.30 [facility] Comment on above: The validity of the calculated GFR & GFRAA in patients over 70 years has not been determined. Clinical correlation is essential. Serum or plasma urea nitroge n measurement (mass/volume)Ordered By: Adam Ferraro on 05-27-2023 Urea nitrogen [Mass/Vol] 20 mg/dL 7-18 [facility] Serum or plasma uric acid me asurement (mass/volume)Ordered By: Adam Ferraro on 05-27-2023 Urate [Mass/Vol] 4.9 mg/dL 3.5-7.2 [facility] Comment on above: The drugs N-Acetylcy steine and Metamizole may falsely depress this assay. Whole blood hemoglobin A1c/t otal hemoglobin ratio (mass fraction)Ordered By: Adam Ferraro on 05-19-2023 HbA1c (Bld) [Mass fraction] 11.1 % 3.8-5.6 [facility] Comment on above: Normal < 5.7 % Predi abetic 5.7 - 6.4 % Diabetic >or= 6.5 % Please note range changes. Absolute lymphocyte countOrd ered By: Alfredo Phipps on 04-29-2023 Lymphocytes Auto (Unsp spec) [#/Vol] 1.98 10*3/uL 0.83-4.51 [facility] Basophil percentageOrdered B y: Alfredo Phipps on 04-29-2023 Basophil percentage 3.6 mg/dL 2.5-4.9 [facility] Basophils/100 WBC (Bld) 1.0 % 0-1 [facility] Chloride [Moles/Vol] 105 mmol/L 98-107 [facility] Eosinophils/100 WBC (Bld) 2.7 % 0-5 [facility] Glucose [Mass/Vol] 300 mg/dL 74-106 [facility] Comment on above: Glucose result great er than or equal to 200 mg/dLsuggests DIABETES MELLITUS per A.D.A. criteria. Neutrophils (Bld) [#/Vol] 5.7 10*3/uL 2.0-7.7 [facility] Neutrophils/100 WBC (Bld) 64.2 % 47-70 [facility] Potassium [Moles/Vol] 3.9 mmol/L 3.5-5.1 [facility] Sodium [Moles/Vol] 138 mmol/L 136-145 [facility] WBC (Bld) [#/Vol] 8.9 10*3/uL 4.4-11.0 [facility] Blood erythrocytes count (nu mber/volume)Ordered By: Alfredo Phipps on 04-29-2023 RBC (Bld) [#/Vol] 4.74 10*6/uL 4.6-6.2 [facility] Blood hemoglobin measurement (mass/volume)Ordered By: Alfredo Phipps on 04-29-2023 Hemoglobin (Bld) [Mass/Vol] 13.6 g/dL 13.0-16.5 [facility] Blood lymphocytes/100 leukoc ytesOrdered By: Alfredo Phipps on 04-29-2023 Lymphocytes/100 WBC (Bld) 22.2 % 19-41 [facility] Blood monocytes/100 leukocyt esOrdered By: Alfredo Phipps on 04-29-2023 Monocytes/100 WBC (Bld) 9.2 % 0-10 [facility] Blood platelet mean volumeOr dered By: Alfredo Phipps on 04-29-2023 Platelet mean volume (Bld) [Entitic vol] 9.7 fL 6.2-12.0 [facility] Determination of erythrocyte mean corpuscular volume (MCV)Ordered By: Alfredo Phipps on 04-29-2023 MCV (RBC) [Entitic vol] 87.8 fL 80-94 [facility] Hematocrit Auto (Bld) [Volum e fraction]Ordered By: Alfredo Phipps on 04-29-2023 Hematocrit (Bld) [Volume fraction] 41.6 % 40-54 [facility] Laboratory - Chemistry and C hemistry - challengeOrdered By: Alfredo Phipps on 04-29-2023 CO2 [Moles/Vol] 24.0 mmol/L 21.0-32.0 [facility] Urea nitrogen/Creatinine [Mass ratio] 13.7 mg/mg 10-20 [facility] Laboratory - Hematology and Cell countsOrdered By: Alfredo Phipps on 04-29-2023 Erythrocyte distribution width (RBC) [Entitic vol] 41.7 fL 35.1-43.9 [facility] Erythrocyte distribution width (RBC) [Ratio] 12.9 % 11.6-14.6 [facility] Immature granulocytes/100 WBC (Bld) 0.700 % 0.0-0.9 [facility] Comment on above: IG% - Immature Granu locytes (promyelocytes, myelocytes and metamyelocytes) > 1% indicates that a LEFT SHIFT is Present. MCH (RBC) [Entitic mass] 28.7 pg 27.0-32.0 [facility] Nucleated RBC/100 WBC (Bld) [Ratio] 0 % 0-5 [facility] MCHC Auto (RBC) [Mass/Vol]Or dered By: Alfredo Phipps on 04-29-2023 MCHC (RBC) [Mass/Vol] 32.7 g/dL 32-36 [facility] No Panel InformationOrdered By: Alfredo Phipps on 04-29-2023 Estimated GFR (MDRD) Amer 51 mL/min >60 [facility] Comment on above: GFR Calc Estimated GFR (MDRD) Non-Af Amer 43 mL/min >60 [facility] Comment on above: Non- GFR Calc [place] Level 0.40 mmol/L 0.60-1.20 [facility] Platelets bldOrdered By: Jennifer Phipps on 04-29-2023 Platelets (Bld) [#/Vol] 204 10*3/uL 150-450 [facility] Serum or plasma albumin you urement (mass/volume)Ordered By: Alfredo Phipps on 04-29-2023 Albumin [Mass/Vol] 2.7 g/dL 3.2-5.0 [facility] Serum or plasma calcium you urement (mass/volume)Ordered By: Alfredo Phipps on 04-29-2023 Calcium [Mass/Vol] 8.9 mg/dL 8.5-10.1 [facility] Serum or plasma creatinine m easurement (mass/volume)Ordered By: Alfredo Phipps on 04-29-2023 Creatinine [Mass/Vol] 1.75 mg/dL 0.70-1.30 [facility] Comment on above: The validity of the calculated GFR & GFRAA in patients over 70 years has not been determined. Clinical correlation is essential. Serum or plasma urea nitroge n measurement (mass/volume)Ordered By: Alfredo Phipps on 04-29-2023 Urea nitrogen [Mass/Vol] 24 mg/dL 7-18 [facility] Serum or plasma uric acid me asurement (mass/volume)Ordered By: Alfredo Phipps on 04-27-2023 Urate [Mass/Vol] 4.8 mg/dL 3.5-7.2 [facility] Comment on above: The drugs N-Acetylcy steine and Metamizole may falsely depress this assay. Urine creatinine measurement (mass/volume)Ordered By: Adam Ferraro on 04-04-2023 Creatinine (U) [Mass/Vol] 96.50 mg/dL NO RANGE EST. [facility] Urine protein measurement (m ass/volume)Ordered By: Adam Ferraro on 04-04-2023 Protein (U) [Mass/Vol] 26.4 mg/dL 0.0-11.8 [facility] Urine protein/creatinine mas s ratioOrdered By: Adam Ferraro on 04-04-2023 Protein/Creatinine (U) [Mass ratio] 274 mg/g CRE 0-200 [facility] Absolute lymphocyte countOrd ered By: Adam Ferraro on 04-01-2023 Lymphocytes Auto (Unsp spec) [#/Vol] 1.91 10*3/uL 0.83-4.51 [facility] Basophil percentageOrdered B y: Adam Ferraro on 04-01-2023 Basophil percentage 3.3 mg/dL 2.5-4.9 [facility] Basophils/100 WBC (Bld) 1.1 % 0-1 [facility] Chloride [Moles/Vol] 105 mmol/L 98-107 [facility] Eosinophils/100 WBC (Bld) 2.7 % 0-5 [facility] Glucose [Mass/Vol] 317 mg/dL 74-106 [facility] Comment on above: Glucose result great er than or equal to 200 mg/dLsuggests DIABETES MELLITUS per A.D.A. criteria. Neutrophils (Bld) [#/Vol] 5.4 10*3/uL 2.0-7.7 [facility] Neutrophils/100 WBC (Bld) 64.7 % 47-70 [facility] Potassium [Moles/Vol] 3.8 mmol/L 3.5-5.1 [facility] Sodium [Moles/Vol] 137 mmol/L 136-145 [facility] WBC (Bld) [#/Vol] 8.4 10*3/uL 4.4-11.0 [facility] Blood erythrocytes count (nu mber/volume)Ordered By: Adam Ferraro on 04-01-2023 RBC (Bld) [#/Vol] 5.17 10*6/uL 4.6-6.2 [facility] Blood hemoglobin measurement (mass/volume)Ordered By: Adam Ferraro on 04-01-2023 Hemoglobin (Bld) [Mass/Vol] 14.7 g/dL 13.0-16.5 [facility] Blood lymphocytes/100 leukoc ytesOrdered By: Adam Ferraro on 04-01-2023 Lymphocytes/100 WBC (Bld) 22.7 % 19-41 [facility] Blood monocytes/100 leukocyt esOrdered By: Adam Ferraro on 04-01-2023 Monocytes/100 WBC (Bld) 8.2 % 0-10 [facility] Blood platelet mean volumeOr dered By: Adam Ferraro on 04-01-2023 Platelet mean volume (Bld) [Entitic vol] 9.8 fL 6.2-12.0 [facility] Determination of erythrocyte mean corpuscular volume (MCV)Ordered By: Adam Ferraro on 04-01-2023 MCV (RBC) [Entitic vol] 88.6 fL 80-94 [facility] Hematocrit Auto (Bld) [Volum e fraction]Ordered By: Adam Ferraro on 04-01-2023 Hematocrit (Bld) [Volume fraction] 45.8 % 40-54 [facility] Laboratory - Chemistry and C hemistry - challengeOrdered By: Adam Ferraro on 04-01-2023 CO2 [Moles/Vol] 25.0 mmol/L 21.0-32.0 [facility] Urea nitrogen/Creatinine [Mass ratio] 13.7 mg/mg 10-20 [facility] Laboratory - Hematology and Cell countsOrdered By: Adam Ferraro on 04-01-2023 Erythrocyte distribution width (RBC) [Entitic vol] 42.5 fL 35.1-43.9 [facility] Erythrocyte distribution width (RBC) [Ratio] 13.1 % 11.6-14.6 [facility] Immature granulocytes/100 WBC (Bld) 0.600 % 0.0-0.9 [facility] Comment on above: IG% - Immature Granu locytes (promyelocytes, myelocytes and metamyelocytes) > 1% indicates that a LEFT SHIFT is Present. MCH (RBC) [Entitic mass] 28.4 pg 27.0-32.0 [facility] Nucleated RBC/100 WBC (Bld) [Ratio] 0 % 0-5 [facility] MCHC Auto (RBC) [Mass/Vol]Or dered By: Adam Ferraro on 04-01-2023 MCHC (RBC) [Mass/Vol] 32.1 g/dL 32-36 [facility] No Panel InformationOrdered By: Adam Ferraro on 04-01-2023 Estimated GFR (MDRD) Amer 49 mL/min >60 [facility] Comment on above: GFR Calc Estimated GFR (MDRD) Non-Af Amer 41 mL/min >60 [facility] Comment on above: Non- GFR Calc [place] Level < 0.20 mmol/L 0.60-1.20 [facility] Platelets bldOrdered By: Benoit Ferraro on 04-01-2023 Platelets (Bld) [#/Vol] 209 10*3/uL 150-450 [facility] Serum or plasma albumin you urement (mass/volume)Ordered By: Adam Ferraro on 04-01-2023 Albumin [Mass/Vol] 3.0 g/dL 3.2-5.0 [facility] Serum or plasma calcium you urement (mass/volume)Ordered By: Adam Ferraro on 04-01-2023 Calcium [Mass/Vol] 8.9 mg/dL 8.5-10.1 [facility] Serum or plasma creatinine m easurement (mass/volume)Ordered By: Adam Ferraro on 04-01-2023 Creatinine [Mass/Vol] 1.82 mg/dL 0.70-1.30 [facility] Comment on above: The validity of the calculated GFR & GFRAA in patients over 70 years has not been determined. Clinical correlation is essential. Serum or plasma urea nitroge n measurement (mass/volume)Ordered By: Adam Ferraro on 04-01-2023 Urea nitrogen [Mass/Vol] 25 mg/dL 7-18 [facility] Absolute lymphocyte countOrd ered By: Alfredo Phipps on 03-04-2023 Lymphocytes Auto (Unsp spec) [#/Vol] 2.18 10*3/uL 0.83-4.51 [facility] Basophil percentageOrdered B y: Alfredo Phipps on 03-04-2023 Basophil percentage 3.9 mg/dL 2.5-4.9 [facility] Basophils/100 WBC (Bld) 0.9 % 0-1 [facility] Chloride [Moles/Vol] 109 mmol/L 98-107 [facility] Eosinophils/100 WBC (Bld) 3.5 % 0-5 [facility] Glucose [Mass/Vol] 179 mg/dL 74-106 [facility] Comment on above: Fasting Glucose resu lt greater than or equal to 126 mg/dL suggests DIABETES MELLITUS per A.D.A. criteria. Neutrophils (Bld) [#/Vol] 6.1 10*3/uL 2.0-7.7 [facility] Neutrophils/100 WBC (Bld) 63.2 % 47-70 [facility] Potassium [Moles/Vol] 3.9 mmol/L 3.5-5.1 [facility] Sodium [Moles/Vol] 138 mmol/L 136-145 [facility] WBC (Bld) [#/Vol] 9.6 10*3/uL 4.4-11.0 [facility] Blood erythrocytes count (nu mber/volume)Ordered By: Alfredo Phipps on 03-04-2023 RBC (Bld) [#/Vol] 4.74 10*6/uL 4.6-6.2 [facility] Blood hemoglobin measurement (mass/volume)Ordered By: Alfredo Phipps on 03-04-2023 Hemoglobin (Bld) [Mass/Vol] 13.6 g/dL 13.0-16.5 [facility] Blood lymphocytes/100 leukoc ytesOrdered By: Alfredo Phipps on 03-04-2023 Lymphocytes/100 WBC (Bld) 22.6 % 19-41 [facility] Blood monocytes/100 leukocyt esOrdered By: Alfredo Phipps on 03-04-2023 Monocytes/100 WBC (Bld) 9.4 % 0-10 [facility] Blood platelet mean volumeOr dered By: Alfredo Phipps on 03-04-2023 Platelet mean volume (Bld) [Entitic vol] 9.7 fL 6.2-12.0 [facility] Determination of erythrocyte mean corpuscular volume (MCV)Ordered By: Alfredo Phipps on 03-04-2023 MCV (RBC) [Entitic vol] 90.3 fL 80-94 [facility] Hematocrit Auto (Bld) [Volum e fraction]Ordered By: Alfredo Phipps on 03-04-2023 Hematocrit (Bld) [Volume fraction] 42.8 % 40-54 [facility] Laboratory - Chemistry and C hemistry - challengeOrdered By: Alfredo Phipps on 03-04-2023 CO2 [Moles/Vol] 26.0 mmol/L 21.0-32.0 [facility] Urea nitrogen/Creatinine [Mass ratio] 13.9 mg/mg 10-20 [facility] Laboratory - Hematology and Cell countsOrdered By: Alfredo Phipps on 03-04-2023 Erythrocyte distribution width (RBC) [Entitic vol] 42.8 fL 35.1-43.9 [facility] Erythrocyte distribution width (RBC) [Ratio] 12.9 % 11.6-14.6 [facility] Immature granulocytes/100 WBC (Bld) 0.400 % 0.0-0.9 [facility] Comment on above: IG% - Immature Granu locytes (promyelocytes, myelocytes and metamyelocytes) > 1% indicates that a LEFT SHIFT is Present. MCH (RBC) [Entitic mass] 28.7 pg 27.0-32.0 [facility] Nucleated RBC/100 WBC (Bld) [Ratio] 0 % 0-5 [facility] MCHC Auto (RBC) [Mass/Vol]Or dered By: Alfredo Phipps on 03-04-2023 MCHC (RBC) [Mass/Vol] 31.8 g/dL 32-36 [facility] No Panel InformationOrdered By: Alfredo Phipps on 03-04-2023 Estimated GFR (MDRD) Amer 55 mL/min >60 [facility] Comment on above: GFR Calc Estimated GFR (MDRD) Non-Af Amer 46 mL/min >60 [facility] Comment on above: Non- GFR Calc [place] Level 0.40 mmol/L 0.60-1.20 [facility] Platelets bldOrdered By: Jennifer Phipps on 03-04-2023 Platelets (Bld) [#/Vol] 207 10*3/uL 150-450 [facility] Serum or plasma albumin you urement (mass/volume)Ordered By: Alfredo Phipps on 03-04-2023 Albumin [Mass/Vol] 2.8 g/dL 3.2-5.0 [facility] Serum or plasma calcium you urement (mass/volume)Ordered By: Alfredo Phipps on 03-04-2023 Calcium [Mass/Vol] 9.2 mg/dL 8.5-10.1 [facility] Serum or plasma creatinine m easurement (mass/volume)Ordered By: Alfredo Phipps on 03-04-2023 Creatinine [Mass/Vol] 1.65 mg/dL 0.70-1.30 [facility] Comment on above: The validity of the calculated GFR & GFRAA in patients over 70 years has not been determined. Clinical correlation is essential. Serum or plasma urea nitroge n measurement (mass/volume)Ordered By: Alfredo Phipps on 03-04-2023 Urea nitrogen [Mass/Vol] 23 mg/dL 7-18 [facility] Serum or plasma uric acid me asurement (mass/volume)Ordered By: Alfredo Phipps on 02-25-2023 Urate [Mass/Vol] 5.6 mg/dL 3.5-7.2 [facility] Comment on above: The drugs N-Acetylcy steine and Metamizole may falsely depress this assay. Absolute lymphocyte countOrd ered By: Alfredo Phipps on 02-04-2023 Lymphocytes Auto (Unsp spec) [#/Vol] 2.03 10*3/uL 0.83-4.51 [facility] Basophil percentageOrdered B y: Alfredo Phipps on 02-04-2023 Basophil percentage 4.3 mg/dL 2.5-4.9 [facility] Basophils/100 WBC (Bld) 1.2 % 0-1 [facility] Chloride [Moles/Vol] 108 mmol/L 98-107 [facility] Eosinophils/100 WBC (Bld) 3.6 % 0-5 [facility] Glucose [Mass/Vol] 193 mg/dL 74-106 [facility] Comment on above: Fasting Glucose resu lt greater than or equal to 126 mg/dL suggests DIABETES MELLITUS per A.D.A. criteria. Neutrophils (Bld) [#/Vol] 6.1 10*3/uL 2.0-7.7 [facility] Neutrophils/100 WBC (Bld) 63.9 % 47-70 [facility] Potassium [Moles/Vol] 4.0 mmol/L 3.5-5.1 [facility] Sodium [Moles/Vol] 139 mmol/L 136-145 [facility] WBC (Bld) [#/Vol] 9.5 10*3/uL 4.4-11.0 [facility] Blood erythrocytes count (nu mber/volume)Ordered By: Alfredo Phipps on 02-04-2023 RBC (Bld) [#/Vol] 4.81 10*6/uL 4.6-6.2 [facility] Blood hemoglobin measurement (mass/volume)Ordered By: Alfredo Phipps on 02-04-2023 Hemoglobin (Bld) [Mass/Vol] 13.9 g/dL 13.0-16.5 [facility] Blood lymphocytes/100 leukoc ytesOrdered By: Alfredo Phipps on 02-04-2023 Lymphocytes/100 WBC (Bld) 21.4 % 19-41 [facility] Blood monocytes/100 leukocyt esOrdered By: Alfredo Phipps on 02-04-2023 Monocytes/100 WBC (Bld) 9.2 % 0-10 [facility] Blood platelet mean volumeOr dered By: Alfredo Phipps on 02-04-2023 Platelet mean volume (Bld) [Entitic vol] 9.4 fL 6.2-12.0 [facility] Determination of erythrocyte mean corpuscular volume (MCV)Ordered By: Alfredo Phipps on 02-04-2023 MCV (RBC) [Entitic vol] 94.2 fL 80-94 [facility] Hematocrit Auto (Bld) [Volum e fraction]Ordered By: Alfredo Phipps on 02-04-2023 Hematocrit (Bld) [Volume fraction] 45.3 % 40-54 [facility] Laboratory - Chemistry and C hemistry - challengeOrdered By: Alfredo Phipps on 02-04-2023 CO2 [Moles/Vol] 24.0 mmol/L 21.0-32.0 [facility] Urea nitrogen/Creatinine [Mass ratio] 14.6 mg/mg 10-20 [facility] Laboratory - Hematology and Cell countsOrdered By: Alfredo Phipps on 02-04-2023 Erythrocyte distribution width (RBC) [Entitic vol] 45.1 fL 35.1-43.9 [facility] Erythrocyte distribution width (RBC) [Ratio] 13.1 % 11.6-14.6 [facility] Immature granulocytes/100 WBC (Bld) 0.700 % 0.0-0.9 [facility] Comment on above: IG% - Immature Granu locytes (promyelocytes, myelocytes and metamyelocytes) > 1% indicates that a LEFT SHIFT is Present. MCH (RBC) [Entitic mass] 28.9 pg 27.0-32.0 [facility] Nucleated RBC/100 WBC (Bld) [Ratio] 0 % 0-5 [facility] MCHC Auto (RBC) [Mass/Vol]Or dered By: Alfredo Phipps on 02-04-2023 MCHC (RBC) [Mass/Vol] 30.7 g/dL 32-36 [facility] No Panel InformationOrdered By: Alfredo Phipps on 02-04-2023 Estimated GFR (MDRD) Amer 53 mL/min >60 [facility] Comment on above: GFR Calc Estimated GFR (MDRD) Non-Af Amer 44 mL/min >60 [facility] Comment on above: Non- GFR Calc [place] Level 0.50 mmol/L 0.60-1.20 [facility] Platelets bldOrdered By: Jennifer Phipps on 02-04-2023 Platelets (Bld) [#/Vol] 182 10*3/uL 150-450 [facility] Serum or plasma albumin you urement (mass/volume)Ordered By: Alfredo Phipps on 02-04-2023 Albumin [Mass/Vol] 2.9 g/dL 3.2-5.0 [facility] Serum or plasma calcium you urement (mass/volume)Ordered By: Alfredo Phipps on 02-04-2023 Calcium [Mass/Vol] 8.9 mg/dL 8.5-10.1 [facility] Serum or plasma creatinine m easurement (mass/volume)Ordered By: Alfredo Phipps on 02-04-2023 Creatinine [Mass/Vol] 1.71 mg/dL 0.70-1.30 [facility] Comment on above: The validity of the calculated GFR & GFRAA in patients over 70 years has not been determined. Clinical correlation is essential. Serum or plasma urea nitroge n measurement (mass/volume)Ordered By: Alfredo Phipps on 02-04-2023 Urea nitrogen [Mass/Vol] 25 mg/dL 7-18 [facility] Serum or plasma uric acid me asurement (mass/volume)Ordered By: Adam Ferraro on 01-25-2023 Urate [Mass/Vol] 5.8 mg/dL 3.5-7.2 [facility] Comment on above: The drugs N-Acetylcy steine and Metamizole may falsely depress this assay. Basophil percentageOrdered B y: Alfredo Phipps on 01-19-2023 Cholesterol [Mass/Vol] 160 mg/dL <200 [facility] Comment on above: <200 mg/dL Desirable 200-240 mg/dL Borderline >240 mg/dL High Risk Triglyceride [Mass/Vol] 322 mg/dL <199 [facility] Comment on above: The drugs N-Acetylcy steine and Metamizole may falsely depress this assay.Serum Triglycerides Reference Interval Normal <150 mg/dL Borderline high 150 - 199 mg/dL High 200 - 499 mg/dL Very High > or = 500 mg/dL Serum or plasma cholesterol in HDL measurement (mass/volume)Ordered By: Alfredo Phipps on 01-19-2023 Cholesterol in HDL [Mass/Vol] 38 mg/dL >40 [facility] Comment on above: The drugs N-Acetylcy steine and Metamizole may falsely depress this assay. Reference Range HDL <40 mg/dL Low HDL Cholesterol HDL >or= 60 mg/dL High HDL Cholesterol Serum or plasma cholesterol in VLDL measurement (mass/volume)Ordered By: Alfredo Phipps on 01-19-2023 Cholesterol in VLDL [Mass/Vol] 64 mg/dL 5-40 [facility] Serum or plasma low density lipoprotein (LDL) cholesterol measurement (mass/volume)Ordered By: Alfredo Phipps on 01-19-2023 Cholesterol in LDL [Mass/Vol] 58 mg/dL 0-130 [facility] Absolute lymphocyte countOrd ered By: Alfredo Phipps on 01-07-2023 Lymphocytes Auto (Unsp spec) [#/Vol] 2.02 10*3/uL 0.83-4.51 [facility] Basophil percentageOrdered B y: Alfredo Phipps on 01-07-2023 Basophil percentage 3.6 mg/dL 2.5-4.9 [facility] Basophils/100 WBC (Bld) 1.0 % 0-1 [facility] Chloride [Moles/Vol] 109 mmol/L 98-107 [facility] Eosinophils/100 WBC (Bld) 2.8 % 0-5 [facility] Glucose [Mass/Vol] 236 mg/dL 74-106 [facility] Comment on above: Glucose result great er than or equal to 200 mg/dLsuggests DIABETES MELLITUS per A.D.A. criteria. Neutrophils (Bld) [#/Vol] 5.8 10*3/uL 2.0-7.7 [facility] Neutrophils/100 WBC (Bld) 62.2 % 47-70 [facility] Potassium [Moles/Vol] 4.1 mmol/L 3.5-5.1 [facility] Sodium [Moles/Vol] 141 mmol/L 136-145 [facility] WBC (Bld) [#/Vol] 9.3 10*3/uL 4.4-11.0 [facility] Blood erythrocytes count (nu mber/volume)Ordered By: Alfredo Phipps on 01-07-2023 RBC (Bld) [#/Vol] 4.67 10*6/uL 4.6-6.2 [facility] Blood hemoglobin measurement (mass/volume)Ordered By: Alfredo Phipps on 01-07-2023 Hemoglobin (Bld) [Mass/Vol] 13.5 g/dL 13.0-16.5 [facility] Blood lymphocytes/100 leukoc ytesOrdered By: Alfredo Phipps on 01-07-2023 Lymphocytes/100 WBC (Bld) 21.8 % 19-41 [facility] Blood monocytes/100 leukocyt esOrdered By: Alfredo Phipps on 01-07-2023 Monocytes/100 WBC (Bld) 11.6 % 0-10 [facility] Blood platelet mean volumeOr dered By: Alfredo Phipps on 01-07-2023 Platelet mean volume (Bld) [Entitic vol] 9.8 fL 6.2-12.0 [facility] Determination of erythrocyte mean corpuscular volume (MCV)Ordered By: Alfredo Phipps on 01-07-2023 MCV (RBC) [Entitic vol] 89.7 fL 80-94 [facility] Hematocrit Auto (Bld) [Volum e fraction]Ordered By: Alfredo Phipps on 02-24-2023 Hematocrit (Bld) [Volume fraction] 41.9 % 40-54 [facility] Laboratory - Chemistry and C hemistry - challengeOrdered By: Alfredo Phipps on 01-07-2023 CO2 [Moles/Vol] 26.0 mmol/L 21.0-32.0 [facility] Urea nitrogen/Creatinine [Mass ratio] 13.4 mg/mg 10-20 [facility] Laboratory - Hematology and Cell countsOrdered By: Alfredo Phipps on 01-07-2023 Erythrocyte distribution width (RBC) [Entitic vol] 42.5 fL 35.1-43.9 [facility] Erythrocyte distribution width (RBC) [Ratio] 13.1 % 11.6-14.6 [facility] Immature granulocytes/100 WBC (Bld) 0.600 % 0.0-0.9 [facility] Comment on above: IG% - Immature Granu locytes (promyelocytes, myelocytes and metamyelocytes) > 1% indicates that a LEFT SHIFT is Present. MCH (RBC) [Entitic mass] 28.9 pg 27.0-32.0 [facility] Nucleated RBC/100 WBC (Bld) [Ratio] 0 % 0-5 [facility] MCHC Auto (RBC) [Mass/Vol]Or dered By: Alfredo Phipps on 01-07-2023 MCHC (RBC) [Mass/Vol] 32.2 g/dL 32-36 [facility] No Panel InformationOrdered By: Alfredo Phipps on 01-07-2023 Estimated GFR (MDRD) Amer 48 mL/min >60 [facility] Comment on above: GFR Calc Estimated GFR (MDRD) Non-Af Amer 40 mL/min >60 [facility] Comment on above: Non- GFR Calc [place] Level 0.30 mmol/L 0.60-1.20 [facility] Platelets bldOrdered By: Jennifer Phipps on 01-07-2023 Platelets (Bld) [#/Vol] 203 10*3/uL 150-450 [facility] Serum or plasma albumin oyu urement (mass/volume)Ordered By: Alfredo Phipps on 01-07-2023 Albumin [Mass/Vol] 2.9 g/dL 3.2-5.0 [facility] Serum or plasma calcium you urement (mass/volume)Ordered By: Alfredo Phipps on 01-07-2023 Calcium [Mass/Vol] 9.0 mg/dL 8.5-10.1 [facility] Serum or plasma creatinine m easurement (mass/volume)Ordered By: Alfredo Phipps on 01-07-2023 Creatinine [Mass/Vol] 1.86 mg/dL 0.70-1.30 [facility] Comment on above: The validity of the calculated GFR & GFRAA in patients over 70 years has not been determined. Clinical correlation is essential. Serum or plasma urea nitroge n measurement (mass/volume)Ordered By: Alfredo Phipps on 01-07-2023 Urea nitrogen [Mass/Vol] 25 mg/dL 7-18 [facility] Serum or plasma uric acid me asurement (mass/volume)Ordered By: Adam Ferraro on 12-28-2022 Urate [Mass/Vol] 5.9 mg/dL 3.5-7.2 [facility] Comment on above: The drugs N-Acetylcy steine and Metamizole may falsely depress this assay. Urine creatinine measurement (mass/volume)Ordered By: Adam Ferraro on 12-15-2022 Creatinine (U) [Mass/Vol] 141.00 mg/dL NO RANGE EST. [facility] Urine protein measurement (m ass/volume)Ordered By: Adam Ferraro on 12-15-2022 Protein (U) [Mass/Vol] 29.9 mg/dL 0.0-11.8 [facility] Urine protein/creatinine mas s ratioOrdered By: Adam Ferraro on 12-15-2022 Protein/Creatinine (U) [Mass ratio] 212 mg/g CRE 0-200 [facility] Absolute lymphocyte countOrd ered By: Adam Ferraro on 12-10-2022 Lymphocytes Auto (Unsp spec) [#/Vol] 1.96 10*3/uL 0.83-4.51 [facility] Basophil percentageOrdered B y: Adam Ferraro on 12-10-2022 Basophil percentage 4.0 mg/dL 2.5-4.9 [facility] Basophils/100 WBC (Bld) 1.2 % 0-1 [facility] Chloride [Moles/Vol] 106 mmol/L 98-107 [facility] Eosinophils/100 WBC (Bld) 3.6 % 0-5 [facility] Glucose [Mass/Vol] 155 mg/dL 74-106 [facility] Comment on above: Fasting Glucose resu lt greater than or equal to 126 mg/dL suggests DIABETES MELLITUS per A.D.A. criteria. Neutrophils (Bld) [#/Vol] 4.9 10*3/uL 2.0-7.7 [facility] Neutrophils/100 WBC (Bld) 60.1 % 47-70 [facility] Potassium [Moles/Vol] 4.1 mmol/L 3.5-5.1 [facility] Sodium [Moles/Vol] 140 mmol/L 136-145 [facility] WBC (Bld) [#/Vol] 8.1 10*3/uL 4.4-11.0 [facility] Blood erythrocytes count (nu mber/volume)Ordered By: Adam Ferraro on 12-10-2022 RBC (Bld) [#/Vol] 4.96 10*6/uL 4.6-6.2 [facility] Blood hemoglobin measurement (mass/volume)Ordered By: Adam Ferraro on 12-10-2022 Hemoglobin (Bld) [Mass/Vol] 14.4 g/dL 13.0-16.5 [facility] Blood lymphocytes/100 leukoc ytesOrdered By: Adam Ferraro on 12-10-2022 Lymphocytes/100 WBC (Bld) 24.1 % 19-41 [facility] Blood monocytes/100 leukocyt esOrdered By: Adam Ferraro on 12-10-2022 Monocytes/100 WBC (Bld) 10.6 % 0-10 [facility] Blood platelet mean volumeOr dered By: Adam Ferraro on 12-10-2022 Platelet mean volume (Bld) [Entitic vol] 9.8 fL 6.2-12.0 [facility] Determination of erythrocyte mean corpuscular volume (MCV)Ordered By: Adam Ferraro on 12-10-2022 MCV (RBC) [Entitic vol] 89.5 fL 80-94 [facility] Hematocrit Auto (Bld) [Volum e fraction]Ordered By: Adam Ferraro on 12-10-2022 Hematocrit (Bld) [Volume fraction] 44.4 % 40-54 [facility] Laboratory - Chemistry and C hemistry - challengeOrdered By: Adam Ferraro on 12-10-2022 CO2 [Moles/Vol] 26.0 mmol/L 21.0-32.0 [facility] Urea nitrogen/Creatinine [Mass ratio] 10.1 mg/mg 10-20 [facility] Laboratory - Hematology and Cell countsOrdered By: Adam Ferraro on 12-10-2022 Erythrocyte distribution width (RBC) [Entitic vol] 42.6 fL 35.1-43.9 [facility] Erythrocyte distribution width (RBC) [Ratio] 13.0 % 11.6-14.6 [facility] Immature granulocytes/100 WBC (Bld) 0.400 % 0.0-0.9 [facility] Comment on above: IG% - Immature Granu locytes (promyelocytes, myelocytes and metamyelocytes) > 1% indicates that a LEFT SHIFT is Present. MCH (RBC) [Entitic mass] 29.0 pg 27.0-32.0 [facility] Nucleated RBC/100 WBC (Bld) [Ratio] 0 % 0-5 [facility] MCHC Auto (RBC) [Mass/Vol]Or dered By: Adam Ferraro on 12-10-2022 MCHC (RBC) [Mass/Vol] 32.4 g/dL 32-36 [facility] No Panel InformationOrdered By: Adam Ferraro on 12-10-2022 Estimated GFR (MDRD) Amer 50 mL/min >60 [facility] Comment on above: GFR Calc Estimated GFR (MDRD) Non-Af Amer 41 mL/min >60 [facility] Comment on above: Non- GFR Calc [place] Level 0.50 mmol/L 0.60-1.20 [facility] Platelets bldOrdered By: Benoit Ferraro on 12-10-2022 Platelets (Bld) [#/Vol] 213 10*3/uL 150-450 [facility] Serum or plasma albumin you urement (mass/volume)Ordered By: Adam Ferraro on 12-10-2022 Albumin [Mass/Vol] 2.8 g/dL 3.2-5.0 [facility] Serum or plasma calcium you urement (mass/volume)Ordered By: Adam Ferraro on 12-10-2022 Calcium [Mass/Vol] 8.8 mg/dL 8.5-10.1 [facility] Serum or plasma creatinine m easurement (mass/volume)Ordered By: Adam Ferraro on 12-10-2022 Creatinine [Mass/Vol] 1.79 mg/dL 0.70-1.30 [facility] Comment on above: The validity of the calculated GFR & GFRAA in patients over 70 years has not been determined. Clinical correlation is essential. Serum or plasma urea nitroge n measurement (mass/volume)Ordered By: Adam Ferraro on 12-10-2022 Urea nitrogen [Mass/Vol] 18 mg/dL 7-18 [facility] Urine creatinine measurement (mass/volume)Ordered By: Adam Ferraro on 11-17-2022 Creatinine (U) [Mass/Vol] 74.70 mg/dL NO RANGE EST. [facility] Urine protein measurement (m ass/volume)Ordered By: Adam Ferraro on 11-17-2022 Protein (U) [Mass/Vol] 16.5 mg/dL 0.0-11.8 [facility] Urine protein/creatinine mas s ratioOrdered By: Adam Ferraro on 11-17-2022 Protein/Creatinine (U) [Mass ratio] 221 mg/g CRE 0-200 [facility] Absolute lymphocyte countOrd ered By: Alfredo Phipps on 11-12-2022 Lymphocytes Auto (Unsp spec) [#/Vol] 2.11 10*3/uL 0.83-4.51 [facility] Basophil percentageOrdered B y: Alfredo Phipps on 11-12-2022 Basophil percentage 3.3 mg/dL 2.5-4.9 [facility] Basophils/100 WBC (Bld) 0.7 % 0-1 [facility] Chloride [Moles/Vol] 106 mmol/L 98-107 [facility] Eosinophils/100 WBC (Bld) 2.4 % 0-5 [facility] Glucose [Mass/Vol] 169 mg/dL 74-106 [facility] Comment on above: Fasting Glucose resu lt greater than or equal to 126 mg/dL suggests DIABETES MELLITUS per A.D.A. criteria. Neutrophils (Bld) [#/Vol] 6.1 10*3/uL 2.0-7.7 [facility] Neutrophils/100 WBC (Bld) 63.5 % 47-70 [facility] Potassium [Moles/Vol] 3.5 mmol/L 3.5-5.1 [facility] Sodium [Moles/Vol] 138 mmol/L 136-145 [facility] WBC (Bld) [#/Vol] 9.6 10*3/uL 4.4-11.0 [facility] Blood erythrocytes count (nu mber/volume)Ordered By: Alfredo Phipps on 11-12-2022 RBC (Bld) [#/Vol] 4.67 10*6/uL 4.6-6.2 [facility] Blood hemoglobin measurement (mass/volume)Ordered By: Alfredo Phipps on 11-12-2022 Hemoglobin (Bld) [Mass/Vol] 13.9 g/dL 13.0-16.5 [facility] Blood lymphocytes/100 leukoc ytesOrdered By: Alfredo Phipps on 11-12-2022 Lymphocytes/100 WBC (Bld) 21.9 % 19-41 [facility] Blood monocytes/100 leukocyt esOrdered By: Alfredo Phipps on 11-12-2022 Monocytes/100 WBC (Bld) 10.8 % 0-10 [facility] Blood platelet mean volumeOr dered By: Alfredo Phipps on 11-12-2022 Platelet mean volume (Bld) [Entitic vol] 9.8 fL 6.2-12.0 [facility] Determination of erythrocyte mean corpuscular volume (MCV)Ordered By: Alfredo Phipps on 11-12-2022 MCV (RBC) [Entitic vol] 89.1 fL 80-94 [facility] Hematocrit Auto (Bld) [Volum e fraction]Ordered By: Alfredo Phipps on 11-12-2022 Hematocrit (Bld) [Volume fraction] 41.6 % 40-54 [facility] Laboratory - Chemistry and C hemistry - challengeOrdered By: Alfredo Phipps on 11-12-2022 CO2 [Moles/Vol] 25.0 mmol/L 21.0-32.0 [facility] Urea nitrogen/Creatinine [Mass ratio] 11.4 mg/mg 10-20 [facility] Laboratory - Hematology and Cell countsOrdered By: Alfreod Phipps on 11-12-2022 Erythrocyte distribution width (RBC) [Entitic vol] 43.2 fL 35.1-43.9 [facility] Erythrocyte distribution width (RBC) [Ratio] 13.2 % 11.6-14.6 [facility] Immature granulocytes/100 WBC (Bld) 0.700 % 0.0-0.9 [facility] Comment on above: IG% - Immature Granu locytes (promyelocytes, myelocytes and metamyelocytes) > 1% indicates that a LEFT SHIFT is Present. MCH (RBC) [Entitic mass] 29.8 pg 27.0-32.0 [facility] Nucleated RBC/100 WBC (Bld) [Ratio] 0 % 0-5 [facility] MCHC Auto (RBC) [Mass/Vol]Or dered By: Alfredo Phipps on 11-12-2022 MCHC (RBC) [Mass/Vol] 33.4 g/dL 32-36 [facility] No Panel InformationOrdered By: Alfredo Phipps on 11-12-2022 Estimated GFR (MDRD) Amer 48 mL/min >60 [facility] Comment on above: GFR Calc Estimated GFR (MDRD) Non-Af Amer 40 mL/min >60 [facility] Comment on above: Non- GFR Calc [place] Level 0.40 mmol/L 0.60-1.20 [facility] Platelets bldOrdered By: Jennifer Phipps on 11-12-2022 Platelets (Bld) [#/Vol] 200 10*3/uL 150-450 [facility] Serum or plasma albumin you urement (mass/volume)Ordered By: Alfredo Phipps on 11-12-2022 Albumin [Mass/Vol] 2.9 g/dL 3.2-5.0 [facility] Serum or plasma calcium you urement (mass/volume)Ordered By: Alfredo Phipps on 11-12-2022 Calcium [Mass/Vol] 8.7 mg/dL 8.5-10.1 [facility] Serum or plasma creatinine m easurement (mass/volume)Ordered By: Alfredo Phipps on 11-12-2022 Creatinine [Mass/Vol] 1.85 mg/dL 0.70-1.30 [facility] Comment on above: The validity of the calculated GFR & GFRAA in patients over 70 years has not been determined. Clinical correlation is essential. Serum or plasma urea nitroge n measurement (mass/volume)Ordered By: Alfredo Phipps on 11-12-2022 Urea nitrogen [Mass/Vol] 21 mg/dL 7-18 [facility] Serum or plasma uric acid me asurement (mass/volume)Ordered By: Alfredo Phipps on 10-27-2022 Urate [Mass/Vol] 6.4 mg/dL 3.5-7.2 [facility] Comment on above: The drugs N-Acetylcy steine and Metamizole may falsely depress this assay. Absolute lymphocyte countOrd ered By: Alfredo Phipps on 10-15-2022 Lymphocytes Auto (Unsp spec) [#/Vol] 2.30 10*3/uL 0.83-4.51 [facility] Basophil percentageOrdered B y: Alfredo Phipps on 10-15-2022 Basophil percentage 4.2 mg/dL 2.5-4.9 [facility] Basophils/100 WBC (Bld) 1.0 % 0-1 [facility] Chloride [Moles/Vol] 108 mmol/L 98-107 [facility] Eosinophils/100 WBC (Bld) 3.2 % 0-5 [facility] Glucose [Mass/Vol] 168 mg/dL 74-106 [facility] Comment on above: Fasting Glucose resu lt greater than or equal to 126 mg/dL suggests DIABETES MELLITUS per A.D.A. criteria. Neutrophils (Bld) [#/Vol] 4.8 10*3/uL 2.0-7.7 [facility] Neutrophils/100 WBC (Bld) 58.3 % 47-70 [facility] Potassium [Moles/Vol] 4.1 mmol/L 3.5-5.1 [facility] Comment on above: Slight Hemolysis, Re sult may be falsely increased. Sodium [Moles/Vol] 140 mmol/L 136-145 [facility] WBC (Bld) [#/Vol] 8.3 10*3/uL 4.4-11.0 [facility] Blood erythrocytes count (nu mber/volume)Ordered By: Alfredo Phipps on 10-15-2022 RBC (Bld) [#/Vol] 4.81 10*6/uL 4.6-6.2 [facility] Blood hemoglobin measurement (mass/volume)Ordered By: Alfredo Phipps on 10-15-2022 Hemoglobin (Bld) [Mass/Vol] 13.9 g/dL 13.0-16.5 [facility] Blood lymphocytes/100 leukoc ytesOrdered By: Alfredo Phipps on 10-15-2022 Lymphocytes/100 WBC (Bld) 27.6 % 19-41 [facility] Blood monocytes/100 leukocyt esOrdered By: Alfredo Phipps on 10-15-2022 Monocytes/100 WBC (Bld) 9.1 % 0-10 [facility] Blood platelet mean volumeOr dered By: Alfredo Phipps on 10-15-2022 Platelet mean volume (Bld) [Entitic vol] 10.1 fL 6.2-12.0 [facility] Determination of erythrocyte mean corpuscular volume (MCV)Ordered By: Alfredo Phipps on 10-15-2022 MCV (RBC) [Entitic vol] 89.4 fL 80-94 [facility] Hematocrit Auto (Bld) [Volum e fraction]Ordered By: Alfredo Phipps on 10-15-2022 Hematocrit (Bld) [Volume fraction] 43.0 % 40-54 [facility] Laboratory - Chemistry and C hemistry - challengeOrdered By: Alfredo Phipps on 10-15-2022 CO2 [Moles/Vol] 28.0 mmol/L 21.0-32.0 [facility] Urea nitrogen/Creatinine [Mass ratio] 11.3 mg/mg 10-20 [facility] Laboratory - Hematology and Cell countsOrdered By: Alfredo Phipps on 10-15-2022 Erythrocyte distribution width (RBC) [Entitic vol] 42.9 fL 35.1-43.9 [facility] Erythrocyte distribution width (RBC) [Ratio] 13.2 % 11.6-14.6 [facility] Immature granulocytes/100 WBC (Bld) 0.800 % 0.0-0.9 [facility] Comment on above: IG% - Immature Granu locytes (promyelocytes, myelocytes and metamyelocytes) > 1% indicates that a LEFT SHIFT is Present. MCH (RBC) [Entitic mass] 28.9 pg 27.0-32.0 [facility] Nucleated RBC/100 WBC (Bld) [Ratio] 0 % 0-5 [facility] MCHC Auto (RBC) [Mass/Vol]Or dered By: Alfredo Phipps on 10-15-2022 MCHC (RBC) [Mass/Vol] 32.3 g/dL 32-36 [facility] No Panel InformationOrdered By: Alfredo Phipps on 10-15-2022 Estimated GFR (MDRD) Amer 46 mL/min >60 [facility] Comment on above: GFR Calc Estimated GFR (MDRD) Non-Af Amer 38 mL/min >60 [facility] Comment on above: Non- GFR Calc [place] Level 0.50 mmol/L 0.60-1.20 [facility] Platelets bldOrdered By: Jennifer Phipps on 10-15-2022 Platelets (Bld) [#/Vol] 200 10*3/uL 150-450 [facility] Serum or plasma albumin you urement (mass/volume)Ordered By: Alfredo Phipps on 10-15-2022 Albumin [Mass/Vol] 2.9 g/dL 3.2-5.0 [facility] Serum or plasma calcium you urement (mass/volume)Ordered By: Alfredo Phipps on 10-15-2022 Calcium [Mass/Vol] 9.1 mg/dL 8.5-10.1 [facility] Serum or plasma creatinine m easurement (mass/volume)Ordered By: Alfredo Phipps on 10-15-2022 Creatinine [Mass/Vol] 1.94 mg/dL 0.70-1.30 [facility] Comment on above: The validity of the calculated GFR & GFRAA in patients over 70 years has not been determined. Clinical correlation is essential. Serum or plasma urea nitroge n measurement (mass/volume)Ordered By: Alfredo Phipps on 10-15-2022 Urea nitrogen [Mass/Vol] 22 mg/dL 7-18 [facility] Serum or plasma uric acid me asurement (mass/volume)Ordered By: Alfredo Phipps on 09-27-2022 Urate [Mass/Vol] 7.0 mg/dL 3.5-7.2 [facility] Comment on above: The drugs N-Acetylcy steine and Metamizole may falsely depress this assay. Absolute lymphocyte countOrd ered By: Adam Ferraro on 09-17-2022 Lymphocytes Auto (Unsp spec) [#/Vol] 2.69 10*3/uL 0.83-4.51 [facility] Basophil percentageOrdered B y: Adam Ferraro on 09-17-2022 Basophil percentage 3.8 mg/dL 2.5-4.9 [facility] Basophils/100 WBC (Bld) 0.9 % 0-1 [facility] Chloride [Moles/Vol] 105 mmol/L 98-107 [facility] Eosinophils/100 WBC (Bld) 3.2 % 0-5 [facility] Glucose [Mass/Vol] 141 mg/dL 74-106 [facility] Comment on above: Fasting Glucose resu lt greater than or equal to 126 mg/dL suggests DIABETES MELLITUS per A.D.A. criteria. Neutrophils (Bld) [#/Vol] 5.1 10*3/uL 2.0-7.7 [facility] Neutrophils/100 WBC (Bld) 56.1 % 47-70 [facility] Potassium [Moles/Vol] 3.8 mmol/L 3.5-5.1 [facility] Sodium [Moles/Vol] 139 mmol/L 136-145 [facility] WBC (Bld) [#/Vol] 9.0 10*3/uL 4.4-11.0 [facility] Blood erythrocytes count (nu mber/volume)Ordered By: Adam Ferraro on 09-17-2022 RBC (Bld) [#/Vol] 4.99 10*6/uL 4.6-6.2 [facility] Blood hemoglobin measurement (mass/volume)Ordered By: Adam Ferraro on 09-17-2022 Hemoglobin (Bld) [Mass/Vol] 14.8 g/dL 13.0-16.5 [facility] Blood lymphocytes/100 leukoc ytesOrdered By: Adam Ferraro on 09-17-2022 Lymphocytes/100 WBC (Bld) 29.8 % 19-41 [facility] Blood monocytes/100 leukocyt esOrdered By: Adam Ferraro on 09-17-2022 Monocytes/100 WBC (Bld) 9.4 % 0-10 [facility] Blood platelet mean volumeOr dered By: Adam Ferraro on 09-17-2022 Platelet mean volume (Bld) [Entitic vol] 10.2 fL 6.2-12.0 [facility] Determination of erythrocyte mean corpuscular volume (MCV)Ordered By: Adam Ferraro on 09-17-2022 MCV (RBC) [Entitic vol] 88.6 fL 80-94 [facility] Hematocrit Auto (Bld) [Volum e fraction]Ordered By: Adam Ferraro on 09-17-2022 Hematocrit (Bld) [Volume fraction] 44.2 % 40-54 [facility] Laboratory - Chemistry and C hemistry - challengeOrdered By: Adam Ferraro on 09-17-2022 CO2 [Moles/Vol] 26.0 mmol/L 21.0-32.0 [facility] Urea nitrogen/Creatinine [Mass ratio] 11.4 mg/mg 10-20 [facility] Laboratory - Hematology and Cell countsOrdered By: Adam Ferraro on 09-17-2022 Erythrocyte distribution width (RBC) [Entitic vol] 42.8 fL 35.1-43.9 [facility] Erythrocyte distribution width (RBC) [Ratio] 13.2 % 11.6-14.6 [facility] Immature granulocytes/100 WBC (Bld) 0.600 % 0.0-0.9 [facility] Comment on above: IG% - Immature Granu locytes (promyelocytes, myelocytes and metamyelocytes) > 1% indicates that a LEFT SHIFT is Present. MCH (RBC) [Entitic mass] 29.7 pg 27.0-32.0 [facility] Nucleated RBC/100 WBC (Bld) [Ratio] 0 % 0-5 [facility] MCHC Auto (RBC) [Mass/Vol]Or dered By: Adam Ferraro on 09-17-2022 MCHC (RBC) [Mass/Vol] 33.5 g/dL 32-36 [facility] No Panel InformationOrdered By: Adam Ferraro on 09-17-2022 [place] Level 0.50 mmol/L 0.60-1.20 [facility] Estimated GFR (MDRD) Amer 51 mL/min >60 [facility] Comment on above: GFR Calc Estimated GFR (MDRD) Non-Af Amer 42 mL/min >60 [facility] Comment on above: Non- GFR Calc Platelets bldOrdered By: Benoit Ferraro on 09-17-2022 Platelets (Bld) [#/Vol] 178 10*3/uL 150-450 [facility] Serum or plasma albumin you urement (mass/volume)Ordered By: Adam Ferraro on 09-17-2022 Albumin [Mass/Vol] 3.0 g/dL 3.2-5.0 [facility] Serum or plasma calcium you urement (mass/volume)Ordered By: Adam Ferraro on 09-17-2022 Calcium [Mass/Vol] 9.0 mg/dL 8.5-10.1 [facility] Serum or plasma creatinine m easurement (mass/volume)Ordered By: Adam Ferraro on 09-17-2022 Creatinine [Mass/Vol] 1.76 mg/dL 0.70-1.30 [facility] Comment on above: The validity of the calculated GFR & GFRAA in patients over 70 years has not been determined. Clinical correlation is essential. Serum or plasma urea nitroge n measurement (mass/volume)Ordered By: Adam Ferraro on 09-17-2022 Urea nitrogen [Mass/Vol] 20 mg/dL 7-18 [facility] Urine creatinine measurement (mass/volume)Ordered By: Adam Ferraro on 09-17-2022 Creatinine (U) [Mass/Vol] 128.00 mg/dL NO RANGE EST. [facility] Urine protein measurement (m ass/volume)Ordered By: Adam Ferraro on 09-17-2022 Protein (U) [Mass/Vol] 20.9 mg/dL 0.0-11.8 [facility] Urine protein/creatinine mas s ratioOrdered By: Adam Ferraro on 09-17-2022 Protein/Creatinine (U) [Mass ratio] 163 mg/g CRE 0-200 [facility] Serum or plasma uric acid me asurement (mass/volume)Ordered By: Adam Ferraro on 08-27-2022 Urate [Mass/Vol] 6.4 mg/dL 3.5-7.2 [facility] Comment on above: The drugs N-Acetylcy steine and Metamizole may falsely depress this assay. No Panel InformationOrdered By: Adam Ferraro on 08-23-2022 [place] Level 0.40 mmol/L 0.60-1.20 [facility] Culture, urineOrdered By: Chan Fiore on 08-15-2022 Bacteria identified Cx Nom (U) Streptococcus mitis [facility] Absolute lymphocyte countOrd ered By: Alfredo Phipps on 08-12-2022 Lymphocytes Auto (Unsp spec) [#/Vol] 2.09 10*3/uL 0.83-4.51 [facility] Basophil percentageOrdered B y: Alfredo Phipps on 08-12-2022 Basophil percentage 3.6 mg/dL 2.5-4.9 [facility] Basophils/100 WBC (Bld) 0.9 % 0-1 [facility] Chloride [Moles/Vol] 107 mmol/L 98-107 [facility] Eosinophils/100 WBC (Bld) 2.8 % 0-5 [facility] Glucose [Mass/Vol] 151 mg/dL 74-106 [facility] Comment on above: Fasting Glucose resu lt greater than or equal to 126 mg/dL suggests DIABETES MELLITUS per A.D.A. criteria. Neutrophils (Bld) [#/Vol] 5.5 10*3/uL 2.0-7.7 [facility] Neutrophils/100 WBC (Bld) 63.4 % 47-70 [facility] Potassium [Moles/Vol] 4.0 mmol/L 3.5-5.1 [facility] Sodium [Moles/Vol] 140 mmol/L 136-145 [facility] WBC (Bld) [#/Vol] 8.7 10*3/uL 4.4-11.0 [facility] Basophil percentage 10-25 SEEN /hpf 0-5 [facility] Bilirubin Test strip Ql (U)O rdered By: Alfredo Phipps on 08-12-2022 Bilirubin Ql (U) Negative Negative [facility] Blood erythrocytes count (nu mber/volume)Ordered By: Alfredo Phipps on 08-12-2022 RBC (Bld) [#/Vol] 4.92 10*6/uL 4.6-6.2 [facility] Blood hemoglobin measurement (mass/volume)Ordered By: Alfredo Phipps on 08-12-2022 Hemoglobin (Bld) [Mass/Vol] 14.5 g/dL 13.0-16.5 [facility] Blood lymphocytes/100 leukoc ytesOrdered By: Alfredo Phipps on 08-12-2022 Lymphocytes/100 WBC (Bld) 24.1 % 19-41 [facility] Blood monocytes/100 leukocyt esOrdered By: Alfredo Phipps on 08-12-2022 Monocytes/100 WBC (Bld) 8.3 % 0-10 [facility] Blood platelet mean volumeOr dered By: Alfredo Phipps on 08-12-2022 Platelet mean volume (Bld) [Entitic vol] 9.8 fL 6.2-12.0 [facility] Determination of erythrocyte mean corpuscular volume (MCV)Ordered By: Alfredo Phipps on 08-12-2022 MCV (RBC) [Entitic vol] 91.1 fL 80-94 [facility] Hematocrit Auto (Bld) [Volum e fraction]Ordered By: Alfredo Phipps on 08-12-2022 Hematocrit (Bld) [Volume fraction] 44.8 % 40-54 [facility] Ketones Test strip Ql (U)Ord ered By: Alfredo Phipps on 08-12-2022 Ketones Ql (U) Negative Negative [facility] Laboratory - Chemistry and C hemistry - challengeOrdered By: Alfredo Phipps on 08-12-2022 CO2 [Moles/Vol] 25.0 mmol/L 21.0-32.0 [facility] Urea nitrogen/Creatinine [Mass ratio] 14.9 mg/mg 10-20 [facility] Laboratory - Hematology and Cell countsOrdered By: Alfredo Phipps on 08-12-2022 Erythrocyte distribution width (RBC) [Entitic vol] 43.3 fL 35.1-43.9 [facility] Erythrocyte distribution width (RBC) [Ratio] 12.9 % 11.6-14.6 [facility] Immature granulocytes/100 WBC (Bld) 0.500 % 0.0-0.9 [facility] Comment on above: IG% - Immature Granu locytes (promyelocytes, myelocytes and metamyelocytes) > 1% indicates that a LEFT SHIFT is Present. MCH (RBC) [Entitic mass] 29.5 pg 27.0-32.0 [facility] Nucleated RBC/100 WBC (Bld) [Ratio] 0 % 0-5 [facility] MCHC Auto (RBC) [Mass/Vol]Or dered By: Alfredo Phipps on 08-12-2022 MCHC (RBC) [Mass/Vol] 32.4 g/dL 32-36 [facility] Mucus LM Ql (Urine sed)Order ed By: Alfredo Phipps on 08-12-2022 Mucus Ql (Urine sed) Not Reportable [facility] Nitrite Test strip Ql (U)Ord ered By: Alfredo Phipps on 08-12-2022 Nitrite Ql (U) Negative Negative [facility] No Panel InformationOrdered By: Alfredo Phipps on 08-12-2022 Estimated GFR (MDRD) Amer 54 mL/min >60 [facility] Comment on above: GFR Calc Estimated GFR (MDRD) Non-Af Amer 45 mL/min >60 [facility] Comment on above: Non- GFR Calc Platelets bldOrdered By: Jennifer Phipps on 08-12-2022 Platelets (Bld) [#/Vol] 238 10*3/uL 150-450 [facility] Protein Test strip Ql (U)Ord ered By: Alfredo Phipps on 08-12-2022 Protein Ql (U) 15 mg/dl Negative [facility] Serum or plasma albumin you urement (mass/volume)Ordered By: Alfredo Phipps on 08-12-2022 Albumin [Mass/Vol] 2.9 g/dL 3.2-5.0 [facility] Serum or plasma calcium you urement (mass/volume)Ordered By: Alfredo Phipps on 08-12-2022 Calcium [Mass/Vol] 9.2 mg/dL 8.5-10.1 [facility] Serum or plasma creatinine m easurement (mass/volume)Ordered By: Alfredo Phipps on 08-12-2022 Creatinine [Mass/Vol] 1.68 mg/dL 0.70-1.30 [facility] Comment on above: The validity of the calculated GFR & GFRAA in patients over 70 years has not been determined. Clinical correlation is essential. Serum or plasma urea nitroge n measurement (mass/volume)Ordered By: Alfredo Phipps on 08-12-2022 Urea nitrogen [Mass/Vol] 25 mg/dL 7-18 [facility] Squamous epithelial cells de tection in urine sediment by light microscopyOrdered By: Alfredo Phipps on 08-12-2022 Epithelial cells.squamous LM Ql (Urine sed) 0-5 SEEN /hpf 0-5 [facility] Urine blood detectionOrdered By: Alfredo Phipps on 08-12-2022 RBC Ql (U) Negative Negative [facility] RBC Ql (U) 0 SEEN /hpf 0-5 [facility] Urine clarityOrdered By: Jennifer Phipps on 08-12-2022 Clarity (U) Clear Clear [facility] Urine color determinationOrd ered By: Alfredo Phipps on 08-12-2022 Color (U) Yellow Yellow [facility] Urine creatinine measurement (mass/volume)Ordered By: Alfredo Phipps on 08-12-2022 Creatinine (U) [Mass/Vol] 102.00 mg/dL NO RANGE EST. [facility] Urine glucose detectionOrder ed By: Alfredo Phipps on 08-12-2022 Glucose Ql (U) Normal mg/dl Normal [facility] Urine leukocyte esterase det ection by dipstickOrdered By: Alfredo Phipps on 08-12-2022 Leukocyte esterase Test strip Ql (U) 500 /ul Negative [facility] Urine pHOrdered By: Alfredo saha on 08-12-2022 pH (U) 6.0 [pH] 5.0 - 8.0 [facility] Urine protein measurement (m ass/volume)Ordered By: Alfredo Phipps on 08-12-2022 Protein (U) [Mass/Vol] 19.9 mg/dL 0.0-11.8 [facility] Urine protein/creatinine mas s ratioOrdered By: Alfredo Phipps on 08-12-2022 Protein/Creatinine (U) [Mass ratio] 195 mg/g CRE 0-200 [facility] Urine sediment bacteria coun t by microscopy (number/high power field)Ordered By: Alfredo Phipps on 08-12-2022 Bacteria LM.HPF (Urine sed) [#/Area] RARE /hpf None Seen [facility] Urine specific gravity measu rementOrdered By: Alfredo hPipps on 08-12-2022 Specific gravity (U) [Rel density] 1.015 1.002-1.03 0 [facility] Urobilinogen Auto test strip Ql (U)Ordered By: Alfredo Phipps on 08-12-2022 Urobilinogen Ql (U) Normal mg/dl Normal [facility] No Panel Informationon 07-28 [place] Level 0.60 mmol/L 0.60-1.20 [facility] Work Phone: Serum or plasma uric acid me asurement (mass/volume)on 07-28-2022 Urate [Mass/Vol] 6.3 mg/dL 3.5-7.2 [facility] Work Phone: Comment on above: The drugs N-Acetylcy steine and Metamizole may falsely depress this assay. URINALYSIS, REFLEX MICROSCOP ICon 07-27-2022 Bilirubin Ql (U) Negative Negative [facility] Clarity (Unsp spec) Clear Clear [facility] Color (U) Colorless Yellow [facility] Glucose Test strip (U) [Mass/Vol] Negative Negative [facility] Hemoglobin Ql (U) Negative Negative [facility] Ketones Ql (U) Negative Negative [facility] Leukocyte esterase Test strip Ql (U) Negative Negative [facility] Nitrite Ql (U) Negative Negative [facility] pH (U) 6.5 [pH] 5.0 - 8.0 [facility] Protein (U) [Mass/Vol] Negative Negative [facility] Specific gravity (U) [Rel density] 1.009 1.005 - 1.030 [facility] Urobilinogen Ql (U) Negative Negative [facility] Absolute lymphocyte counton 07-15-2022 Lymphocytes Auto (Unsp spec) [#/Vol] 1.93 10*3/uL 0.83-4.51 [facility] Work Phone: Basophil percentageon 2021 Basophil percentage 3.9 mg/dL 2.5-4.9 [facility] Work Phone: Basophils/100 WBC (Bld) 1.3 % 0-1 [facility] Work Phone: Chloride [Moles/Vol] 107 mmol/L 98-107 [facility] Work Phone: Eosinophils/100 WBC (Bld) 1.7 % 0-5 [facility] Work Phone: Glucose [Mass/Vol] 126 mg/dL 74-106 [facility] Work Phone: Comment on above: Fasting Glucose resu lt greater than or equal to 126 mg/dL suggests DIABETES MELLITUS per A.D.A. criteria. Neutrophils (Bld) [#/Vol] 6.1 10*3/uL 2.0-7.7 [facility] Work Phone: Neutrophils/100 WBC (Bld) 66.5 % 47-70 [facility] Work Phone: Potassium [Moles/Vol] 4.4 mmol/L 3.5-5.1 [facility] Work Phone: Sodium [Moles/Vol] 139 mmol/L 136-145 [facility] Work Phone: WBC (Bld) [#/Vol] 9.2 10*3/uL 4.4-11.0 [facility] Work Phone: [phone] Bilirubin Test strip Ql (U)o n 07-15-2022 Bilirubin Ql (U) Negative Negative [facility] Work Phone: Blood erythrocytes count (nu mber/volume)on 07-15-2022 RBC (Bld) [#/Vol] 5.01 10*6/uL 4.6-6.2 [facility] Work Phone: Blood hemoglobin measurement (mass/volume)on 07-15-2022 Hemoglobin (Bld) [Mass/Vol] 14.8 g/dL 13.0-16.5 [facility] Work Phone: Blood lymphocytes/100 leukoc yteson 07-15-2022 Lymphocytes/100 WBC (Bld) 20.9 % 19-41 [facility] Work Phone: [phone] Blood monocytes/100 leukocyt eson 07-15-2022 Monocytes/100 WBC (Bld) 8.9 % 0-10 [facility] Work Phone: [phone] Blood platelet mean volumeon 07-15-2022 Platelet mean volume (Bld) [Entitic vol] 9.7 fL 6.2-12.0 [facility] Work Phone: [phone] Determination of erythrocyte mean corpuscular volume (MCV)on 07-15-2022 MCV (RBC) [Entitic vol] 91.8 fL 80-94 [facility] Work Phone: [phone] Hematocrit Auto (Bld) [Volum e fraction]on 07-15-2022 Hematocrit (Bld) [Volume fraction] 46.0 % 40-54 [facility] Work Phone: Ketones Test strip Ql (U)on 07-15-2022 Ketones Ql (U) Negative Negative [facility] Work Phone: Laboratory - Chemistry and C hemistry - challengeon 07-15-2022 CO2 [Moles/Vol] 25.0 mmol/L 21.0-32.0 [facility] Work Phone: Urea nitrogen/Creatinine [Mass ratio] 14.9 mg/mg 10-20 [facility] Work Phone: Laboratory - Hematology and Cell countson 07-15-2022 Erythrocyte distribution width (RBC) [Entitic vol] 44.0 fL 35.1-43.9 [facility] Work Phone: Erythrocyte distribution width (RBC) [Ratio] 13.1 % 11.6-14.6 [facility] Work Phone: [phone] Immature granulocytes/100 WBC (Bld) 0.700 % 0.0-0.9 [facility] Work Phone: Comment on above: IG% - Immature Granu locytes (promyelocytes, myelocytes and metamyelocytes) > 1% indicates that a LEFT SHIFT is Present. MCH (RBC) [Entitic mass] 29.5 pg 27.0-32.0 [facility] Work Phone: Nucleated RBC/100 WBC (Bld) [Ratio] 0 % 0-5 [facility] Work Phone: MCHC Auto (RBC) [Mass/Vol]on 07-15-2022 MCHC (RBC) [Mass/Vol] 32.2 g/dL 32-36 [facility] Work Phone: Nitrite Test strip Ql (U)on 07-15-2022 Nitrite Ql (U) Negative Negative [facility] Work Phone: No Panel Informationon 07-15 Estimated GFR (MDRD) Amer 54 mL/min >60 [facility] Work Phone: Comment on above: GFR Calc Estimated GFR (MDRD) Non-Af Amer 45 mL/min >60 [facility] Work Phone: Comment on above: Non- GFR Calc Platelets bldon 07-15-2022 Platelets (Bld) [#/Vol] 231 10*3/uL 150-450 [facility] Work Phone: Protein Test strip Ql (U)on 07-15-2022 Protein Ql (U) 30 mg/dl Negative [facility] Work Phone: Serum or plasma albumin you urement (mass/volume)on 07-15-2022 Albumin [Mass/Vol] 3.1 g/dL 3.2-5.0 [facility] Work Phone: Serum or plasma calcium you urement (mass/volume)on 07-15-2022 Calcium [Mass/Vol] 8.6 mg/dL 8.5-10.1 [facility] Work Phone: Serum or plasma creatinine m easurement (mass/volume)on 07-15-2022 Creatinine [Mass/Vol] 1.68 mg/dL 0.70-1.30 [facility] Work Phone: Comment on above: The validity of the calculated GFR & GFRAA in patients over 70 years has not been determined. Clinical correlation is essential. Serum or plasma urea nitroge n measurement (mass/volume)on 07-15-2022 Urea nitrogen [Mass/Vol] 25 mg/dL 7-18 [facility] Work Phone: Urine blood detectionon 09-0 RBC Ql (U) Negative Negative [facility] Work Phone: Urine clarityon 07-15-2022 Clarity (U) Sl. Cloudy Clear [facility] Work Phone: Urine color determinationon 07-15-2022 Color (U) Yellow Yellow [facility] Work Phone: Urine creatinine measurement (mass/volume)on 07-15-2022 Creatinine (U) [Mass/Vol] 114.00 mg/dL NO RANGE EST. [facility] Work Phone: Urine glucose detectionon Glucose Ql (U) Normal mg/dl Normal [facility] Work Phone: Urine leukocyte esterase det ection by dipstickon 07-15-2022 Leukocyte esterase Test strip Ql (U) 100 /ul Negative [facility] Work Phone: Urine pHon 07-15-2022 pH (U) 6.0 [pH] 5.0 - 8.0 [facility] Work Phone: Urine protein measurement (m ass/volume)on 07-15-2022 Protein (U) [Mass/Vol] 26.5 mg/dL 0.0-11.8 [facility] Work Phone: Urine protein/creatinine mas s ratioon 07-15-2022 Protein/Creatinine (U) [Mass ratio] 232 mg/g CRE 0-200 [facility] Work Phone: Urine specific gravity measu rementon 07-15-2022 Specific gravity (U) [Rel density] 1.015 1.002-1.03 0 [facility] Work Phone: Urobilinogen Auto test strip Ql (U)on 07-15-2022 Urobilinogen Ql (U) Normal mg/dl [facility]: Basophil percentageon 2021 Cholesterol [Mass/Vol] 149 mg/dL <200 [facility] Work Phone: Comment on above: <200 mg/dL Desirable 200-240 mg/dL Borderline >240 mg/dL High Risk Triglyceride [Mass/Vol] 379 mg/dL <199 [facility] Work Phone: Comment on above: The drugs N-Acetylcy steine and Metamizole may falsely depress this assay.Serum Triglycerides Reference Interval Normal <150 mg/dL Borderline high 150 - 199 mg/dL High 200 - 499 mg/dL Very High > or = 500 mg/dL No Panel Informationon 06-28 [place] Level 0.40 mmol/L 0.60-1.20 [facility] Work Phone: Serum or plasma cholesterol in HDL measurement (mass/volume)on 06-28-2022 Cholesterol in HDL [Mass/Vol] 34 mg/dL >40 [facility] Work Phone: Comment on above: The drugs N-Acetylcy steine and Metamizole may falsely depress this assay. Reference Range HDL <40 mg/dL Low HDL Cholesterol HDL >or= 60 mg/dL High HDL Cholesterol Serum or plasma cholesterol in VLDL measurement (mass/volume)on 06-28-2022 Cholesterol in VLDL [Mass/Vol] 76 mg/dL 5-40 [facility] Work Phone: Serum or plasma low density lipoprotein (LDL) cholesterol measurement (mass/volume)on 06-28-2022 Cholesterol in LDL [Mass/Vol] 39 mg/dL 0-130 [facility] Work Phone: Serum or plasma uric acid me asurement (mass/volume)on 06-28-2022 Urate [Mass/Vol] 5.9 mg/dL 3.5-7.2 [facility] Work Phone: Comment on above: The drugs N-Acetylcy steine and Metamizole may falsely depress this assay. Absolute lymphocyte counton 06-17-2022 Lymphocytes Auto (Unsp spec) [#/Vol] 2.02 10*3/uL 0.83-4.51 [facility] Work Phone: Basophil percentageon 2021 Basophil percentage 0-5 SEEN /hpf 0-5 [facility] Work Phone: Basophil percentage 3.8 mg/dL 2.5-4.9 [facility] Work [facility]: Basophils/100 WBC (Bld) 0.8 % 0-1 [facility] Work Phone: Chloride [Moles/Vol] 108 mmol/L 98-107 [facility] Work Phone: Eosinophils/100 WBC (Bld) 2.9 % 0-5 [facility] Work Phone: Glucose [Mass/Vol] 133 mg/dL 74-106 [facility] Work Phone: Comment on above: Fasting Glucose resu lt greater than or equal to 126 mg/dL suggests DIABETES MELLITUS per A.D.A. criteria. Neutrophils (Bld) [#/Vol] 5.3 10*3/uL 2.0-7.7 [facility] Work Phone: Neutrophils/100 WBC (Bld) 61.6 % 47-70 [facility] Work Phone: Potassium [Moles/Vol] 3.8 mmol/L 3.5-5.1 [facility] Work Phone: Sodium [Moles/Vol] 140 mmol/L 136-145 [facility] Work Phone: WBC (Bld) [#/Vol] 8.6 10*3/uL 4.4-11.0 [facility] Work Phone: Bilirubin Test strip Ql (U)o n 06-17-2022 Bilirubin Ql (U) Negative Negative [facility] Work Phone: Blood erythrocytes count (nu mber/volume)on 06-17-2022 RBC (Bld) [#/Vol] 4.46 10*6/uL 4.6-6.2 [facility] Work Phone: [phone] Blood hemoglobin measurement (mass/volume)on 06-17-2022 Hemoglobin (Bld) [Mass/Vol] 13.4 g/dL 13.0-16.5 [facility] Work Phone: Blood lymphocytes/100 leukoc yteson 06-17-2022 Lymphocytes/100 WBC (Bld) 23.5 % 19-41 [facility] Work Phone: Blood monocytes/100 leukocyt eson 06-17-2022 Monocytes/100 WBC (Bld) 10.0 % 0-10 [facility] Work Phone: [phone] Blood platelet mean volumeon 06-17-2022 Platelet mean volume (Bld) [Entitic vol] 9.6 fL 6.2-12.0 [facility] Work Phone: [phone] Determination of erythrocyte mean corpuscular volume (MCV)on 06-17-2022 MCV (RBC) [Entitic vol] 91.3 fL 80-94 [facility] Work Phone: [phone] Hematocrit Auto (Bld) [Volum e fraction]on 06-17-2022 Hematocrit (Bld) [Volume fraction] 40.7 % 40-54 [facility] Work Phone: [phone] Ketones Test strip Ql (U)on 06-17-2022 Ketones Ql (U) Negative Negative [facility] Work Phone: [phone] Laboratory - Chemistry and C hemistry - challengeon 06-17-2022 CO2 [Moles/Vol] 25.0 mmol/L 21.0-32.0 [facility] Work Phone: [phone] Urea nitrogen/Creatinine [Mass ratio] 12.6 mg/mg 10-20 [facility] Work Phone: Laboratory - Hematology and Cell countson 06-17-2022 Erythrocyte distribution width (RBC) [Entitic vol] 45.5 fL 35.1-43.9 [facility] Work Phone: [phone] Erythrocyte distribution width (RBC) [Ratio] 13.4 % 11.6-14.6 [facility] Work Phone: Immature granulocytes/100 WBC (Bld) 1.200 % 0.0-0.9 [facility] Work Phone: Comment on above: IG% - Immature Granu locytes (promyelocytes, myelocytes and metamyelocytes) > 1% indicates that a LEFT SHIFT is Present. MCH (RBC) [Entitic mass] 30.0 pg 27.0-32.0 [facility] Work Phone: Nucleated RBC/100 WBC (Bld) [Ratio] 0 % 0-5 [facility] Work Phone: MCHC Auto (RBC) [Mass/Vol]on 06-17-2022 MCHC (RBC) [Mass/Vol] 32.9 g/dL 32-36 [facility] Work Phone: Mucus LM Ql (Urine sed)on Mucus Ql (Urine sed) 0 SEEN /hpf [facility] Work Phone: Nitrite Test strip Ql (U)on 06-17-2022 Nitrite Ql (U) Negative Negative [facility] Work Phone: No Panel Informationon 06-17 Estimated GFR (MDRD) Amer 58 mL/min >60 [facility] Work Phone: Comment on above: GFR Calc Estimated GFR (MDRD) Non-Af Amer 48 mL/min >60 [facility] Work Phone: Comment on above: Non- GFR Calc Platelets bldon 06-17-2022 Platelets (Bld) [#/Vol] 178 10*3/uL 150-450 [facility] Work Phone: Protein Test strip Ql (U)on 06-17-2022 Protein Ql (U) 15 mg/dl Negative [facility] Work Phone: Serum or plasma albumin you urement (mass/volume)on 06-17-2022 Albumin [Mass/Vol] 2.8 g/dL 3.2-5.0 [facility] Work Phone: Serum or plasma calcium you urement (mass/volume)on 06-17-2022 Calcium [Mass/Vol] 8.6 mg/dL 8.5-10.1 [facility] Work Phone: Serum or plasma creatinine m easurement (mass/volume)on 06-17-2022 Creatinine [Mass/Vol] 1.59 mg/dL 0.70-1.30 [facility] Work Phone: Comment on above: The validity of the calculated GFR & GFRAA in patients over 70 years has not been determined. Clinical correlation is essential. Serum or plasma urea nitroge n measurement (mass/volume)on 06-17-2022 Urea nitrogen [Mass/Vol] 20 mg/dL 7-18 [facility] Work Phone: Squamous epithelial cells de tection in urine sediment by light microscopyon 06-17-2022 Epithelial cells.squamous LM Ql (Urine sed) 0-5 SEEN /hpf 0-5 [facility] Work Phone: Urine blood detectionon 08- RBC Ql (U) Negative Negative [facility] Work Phone: RBC Ql (U) 0 SEEN /hpf 0-5 [facility] Work Phone: Urine clarityon 06-17-2022 Clarity (U) Clear Clear [facility] Work Phone: Urine color determinationon 06-17-2022 Color (U) Yellow Yellow [facility] Work Phone: Urine creatinine measurement (mass/volume)on 06-17-2022 Creatinine (U) [Mass/Vol] 118.00 mg/dL NO RANGE EST. [facility] Work Phone: Urine glucose detectionon Glucose Ql (U) Normal mg/dl Normal [facility] Work Phone: Urine leukocyte esterase det ection by dipstickon 06-17-2022 Leukocyte esterase Test strip Ql (U) 100 /ul Negative [facility] Work Phone: Urine pHon 06-17-2022 pH (U) 6.0 [pH] 5.0 - 8.0 [facility] Work Phone: Urine protein measurement (m ass/volume)on 06-17-2022 Protein (U) [Mass/Vol] 22.0 mg/dL 0.0-11.8 [facility] Work Phone: Urine protein/creatinine mas s ratioon 06-17-2022 Protein/Creatinine (U) [Mass ratio] 186 mg/g CRE 0-200 [facility] Work Phone: Urine sediment bacteria coun t by microscopy (number/high power field)on 06-17-2022 Bacteria LM.HPF (Urine sed) [#/Area] 0 /[HPF] None Seen [facility] Work Phone: [phone] Urine specific gravity measu rementon 06-17-2022 Specific gravity (U) [Rel density] 1.015 1.002-1.03 0 [facility] Work Phone: Urobilinogen Auto test strip Ql (U)on 06-17-2022 Urobilinogen Ql (U) Normal mg/dl Normal [facility] Work Phone: [phone] No Panel Informationon 05-27 [place] Level 0.40 mmol/L 0.60-1.20 [facility] Work Phone: [phone] Serum or plasma uric acid me asurement (mass/volume)on 05-27-2022 Urate [Mass/Vol] 6.1 mg/dL 3.5-7.2 [facility] Work Phone: [phone] Comment on above: The drugs N-Acetylcy steine and Metamizole may falsely depress this assay. Absolute lymphocyte counton 05-20-2022 Lymphocytes Auto (Unsp spec) [#/Vol] 2.07 10*3/uL 0.83-4.51 [facility] Work Phone: [phone] Basophil percentageon 2021 Basophil percentage 3.2 mg/dL 2.5-4.9 [facility] Work [facility]: Basophils/100 WBC (Bld) 0.7 % 0-1 [facility] Work Phone: Chloride [Moles/Vol] 108 mmol/L 98-107 [facility] Work Phone: Eosinophils/100 WBC (Bld) 2.5 % 0-5 [facility] Work Phone: Glucose [Mass/Vol] 149 mg/dL 74-106 [facility]: Comment on above: Fasting Glucose resu lt greater than or equal to 126 mg/dL suggests DIABETES MELLITUS per A.D.A. criteria. Neutrophils (Bld) [#/Vol] 6.4 10*3/uL 2.0-7.7 [facility] Work Phone: Neutrophils/100 WBC (Bld) 65.6 % 47-70 [facility] Work Phone: Potassium [Moles/Vol] 3.9 mmol/L 3.5-5.1 [facility] Work Phone: Sodium [Moles/Vol] 140 mmol/L 136-145 [facility] Work Phone: WBC (Bld) [#/Vol] 9.7 10*3/uL 4.4-11.0 [facility] Work Phone: [phone] Basophil percentage 0-5 SEEN /hpf 0-5 [facility] Work Phone: Bilirubin Test strip Ql (U)o n 05-20-2022 Bilirubin Ql (U) Negative Negative [facility] Work Phone: Blood erythrocytes count (nu mber/volume)on 05-20-2022 RBC (Bld) [#/Vol] 4.36 10*6/uL 4.6-6.2 [facility] Work Phone: [phone] Blood hemoglobin measurement (mass/volume)on 05-20-2022 Hemoglobin (Bld) [Mass/Vol] 12.9 g/dL 13.0-16.5 [facility] Work Phone: Blood lymphocytes/100 leukoc yteson 05-20-2022 Lymphocytes/100 WBC (Bld) 21.4 % 19-41 [facility] Work Phone: Blood monocytes/100 leukocyt eson 05-20-2022 Monocytes/100 WBC (Bld) 9.3 % 0-10 [facility] Work Phone: Blood platelet mean volumeon 05-20-2022 Platelet mean volume (Bld) [Entitic vol] 9.6 fL 6.2-12.0 [facility] Work Phone: [phone] Determination of erythrocyte mean corpuscular volume (MCV)on 05-20-2022 MCV (RBC) [Entitic vol] 91.5 fL 80-94 [facility] Work Phone: [phone] Hematocrit Auto (Bld) [Volum e fraction]on 05-20-2022 Hematocrit (Bld) [Volume fraction] 39.9 % 40-54 [facility] Work Phone: [phone] Ketones Test strip Ql (U)on 05-20-2022 Ketones Ql (U) Negative Negative [facility] Work Phone: Laboratory - Chemistry and C hemistry - challengeon 05-20-2022 CO2 [Moles/Vol] 26.0 mmol/L 21.0-32.0 [facility] Work Phone: [phone] Urea nitrogen/Creatinine [Mass ratio] 9.9 mg/mg 10-20 [facility] Work Phone: [phone] Laboratory - Hematology and Cell countson 05-20-2022 Erythrocyte distribution width (RBC) [Entitic vol] 45.7 fL 35.1-43.9 [facility] Work Phone: [phone] Erythrocyte distribution width (RBC) [Ratio] 13.6 % 11.6-14.6 [facility] Work Phone: [phone] Immature granulocytes/100 WBC (Bld) 0.500 % 0.0-0.9 [facility] Work Phone: Comment on above: IG% - Immature Granu locytes (promyelocytes, myelocytes and metamyelocytes) > 1% indicates that a LEFT SHIFT is Present. MCH (RBC) [Entitic mass] 29.6 pg 27.0-32.0 [facility] Work Phone: Nucleated RBC/100 WBC (Bld) [Ratio] 0 % 0-5 [facility] Work Phone: MCHC Auto (RBC) [Mass/Vol]on 05-20-2022 MCHC (RBC) [Mass/Vol] 32.3 g/dL 32-36 [facility] Work Phone: Mucus LM Ql (Urine sed)on Mucus Ql (Urine sed) 0 SEEN /hpf [facility] Work Phone: Nitrite Test strip Ql (U)on 05-20-2022 Nitrite Ql (U) Negative Negative [facility] Work Phone: No Panel Informationon 05-20 Estimated GFR (MDRD) Amer 53 mL/min >60 [facility] Work Phone: Comment on above: GFR Calc Estimated GFR (MDRD) Non-Af Amer 44 mL/min >60 [facility] Work Phone: Comment on above: Non- GFR Calc Platelets bldon 05-20-2022 Platelets (Bld) [#/Vol] 197 10*3/uL 150-450 [facility] Work Phone: Protein Test strip Ql (U)on 05-20-2022 Protein Ql (U) Negative Negative [facility] Work Phone: Serum or plasma albumin you urement (mass/volume)on 05-20-2022 Albumin [Mass/Vol] 2.7 g/dL 3.2-5.0 [facility] Work Phone: Serum or plasma calcium you urement (mass/volume)on 05-20-2022 Calcium [Mass/Vol] 9.0 mg/dL 8.5-10.1 [facility] Work Phone: Serum or plasma creatinine m easurement (mass/volume)on 05-20-2022 Creatinine [Mass/Vol] 1.71 mg/dL 0.70-1.30 [facility] Work Phone: Comment on above: The validity of the calculated GFR & GFRAA in patients over 70 years has not been determined. Clinical correlation is essential. Serum or plasma urea nitroge n measurement (mass/volume)on 05-20-2022 Urea nitrogen [Mass/Vol] 17 mg/dL 7-18 [facility] Work Phone: Squamous epithelial cells de tection in urine sediment by light microscopyon 05-20-2022 Epithelial cells.squamous LM Ql (Urine sed) 0-5 SEEN /hpf 0-5 [facility] Work Phone: Urine blood detectionon RBC Ql (U) Negative Negative [facility] Work Phone: RBC Ql (U) 0 SEEN /hpf 0-5 [facility] Work Phone: Urine clarityon 05-20-2022 Clarity (U) Clear Clear [facility] Work Phone: Urine color determinationon 05-20-2022 Color (U) Yellow Yellow [facility] Work Phone: Urine creatinine measurement (mass/volume)on 05-20-2022 Creatinine (U) [Mass/Vol] 107.00 mg/dL NO RANGE EST. [facility] Work Phone: Urine glucose detectionon Glucose Ql (U) Normal mg/dl Normal [facility] Work Phone: Urine leukocyte esterase det ection by dipstickon 05-20-2022 Leukocyte esterase Test strip Ql (U) 25 /ul Negative [facility] Work Phone: Urine pHon 05-20-2022 pH (U) 6.5 [pH] 5.0 - 8.0 [facility] Work Phone: Urine protein measurement (m ass/volume)on 05-20-2022 Protein (U) [Mass/Vol] 17.3 mg/dL 0.0-11.8 [facility] Work Phone: [phone] Urine protein/creatinine mas s ratioon 05-20-2022 Protein/Creatinine (U) [Mass ratio] 162 mg/g CRE 0-200 [facility] Work Phone: [phone] Urine sediment bacteria coun t by microscopy (number/high power field)on 05-20-2022 Bacteria LM.HPF (Urine sed) [#/Area] 0 /[HPF] None Seen [facility] Work Phone: Urine specific gravity measu rementon 05-20-2022 Specific gravity (U) [Rel density] 1.010 1.002-1.03 0 [facility] Work Phone: Urobilinogen Auto test strip Ql (U)on 05-20-2022 Urobilinogen Ql (U) Normal mg/dl Normal [facility] Work Phone: [phone] No Panel Informationon 05-05 [facility] Absolute lymphocyte counton 04-27-2022 Lymphocytes Auto (Unsp spec) [#/Vol] 2.36 10*3/uL 0.83-4.51 [facility] Work Phone: [phone] Basophil percentageon 2021 Basophil percentage 4.6 mg/dL 2.5-4.9 [facility] Work Phone: Basophils/100 WBC (Bld) 0.3 % 0-1 [facility] Work Phone: Chloride [Moles/Vol] 104 mmol/L 98-[address] [facility] Work Phone: Eosinophils/100 WBC (Bld) 0.1 % 0-5 [facility] Work Phone: Glucose [Mass/Vol] 190 mg/dL 74-106 [facility] Work Phone: [phone] Comment on above: Fasting Glucose resu lt greater than or equal to 126 mg/dL suggests DIABETES MELLITUS per A.D.A. criteria. Neutrophils (Bld) [#/Vol] 10.5 10*3/uL 2.0-7.7 [facility] Work Phone: Neutrophils/100 WBC (Bld) 72.0 % 47-70 [facility] Work Phone: Potassium [Moles/Vol] 3.8 mmol/L 3.5-5.1 [facility] Work Phone: Sodium [Moles/Vol] 140 mmol/L 136-145 [facility] Work Phone: WBC (Bld) [#/Vol] 14.5 10*3/uL 4.4-11.0 [facility] Work Phone: Blood erythrocytes count (nu mber/volume)on 04-27-2022 RBC (Bld) [#/Vol] 4.56 10*6/uL 4.6-6.2 [facility] Work Phone: Blood hemoglobin measurement (mass/volume)on 04-27-2022 Hemoglobin (Bld) [Mass/Vol] 13.4 g/dL 13.0-16.5 [facility] Work Phone: Blood lymphocytes/100 leukoc yteson 04-27-2022 Lymphocytes/100 WBC (Bld) 16.3 % 19-41 [facility] Work Phone: Blood monocytes/100 leukocyt eson 04-27-2022 Monocytes/100 WBC (Bld) 7.6 % 0-10 [facility] Work Phone: Blood platelet mean volumeon 04-27-2022 Platelet mean volume (Bld) [Entitic vol] 9.2 fL 6.2-12.0 [facility] Work Phone: Determination of erythrocyte mean corpuscular volume (MCV)on 04-27-2022 MCV (RBC) [Entitic vol] 91.0 fL 80-94 [facility] Work Phone: Hematocrit Auto (Bld) [Volum e fraction]on 04-27-2022 Hematocrit (Bld) [Volume fraction] 41.5 % 40-54 [facility] Work Phone: Laboratory - Chemistry and C hemistry - challengeon 04-27-2022 CO2 [Moles/Vol] 28.0 mmol/L 21.0-32.0 [facility] Work Phone: Urea nitrogen/Creatinine [Mass ratio] 13.4 mg/mg 10-20 [facility] Work Phone: Laboratory - Hematology and Cell countson 04-27-2022 Erythrocyte distribution width (RBC) [Entitic vol] 45.7 fL 35.1-43.9 [facility] Work Phone: Erythrocyte distribution width (RBC) [Ratio] 13.7 % 11.6-14.6 [facility] Work Phone: Immature granulocytes/100 WBC (Bld) 3.700 % 0.0-0.9 [facility] Work Phone: Comment on above: IG% - Immature Granu locytes (promyelocytes, myelocytes and metamyelocytes) > 1% indicates that a LEFT SHIFT is Present. MCH (RBC) [Entitic mass] 29.4 pg 27.0-32.0 [facility] Work Phone: Nucleated RBC/100 WBC (Bld) [Ratio] 0.1 % 0-5 [facility] Work Phone: MCHC Auto (RBC) [Mass/Vol]on 04-27-2022 MCHC (RBC) [Mass/Vol] 32.3 g/dL 32-36 [facility] Work Phone: No Panel Informationon 04-27 Estimated GFR (MDRD) Amer 44 mL/min >60 [facility] Work Phone: Comment on above: GFR Calc Estimated GFR (MDRD) Non-Af Amer 36 mL/min >60 [facility] Work Phone: Comment on above: Non- GFR Calc [place] Level 0.50 mmol/L 0.60-1.20 [facility] Work Phone: Platelets bldon 04-27-2022 Platelets (Bld) [#/Vol] 243 10*3/uL 150-450 [facility] Work Phone: Serum or plasma albumin you urement (mass/volume)on 04-27-2022 Albumin [Mass/Vol] 2.9 g/dL 3.2-5.0 [facility] Work Phone: [phone] Serum or plasma calcium you urement (mass/volume)on 04-27-2022 Calcium [Mass/Vol] 9.3 mg/dL 8.5-10.1 [facility] Work Phone: [phone] Serum or plasma creatinine m easurement (mass/volume)on 04-27-2022 Creatinine [Mass/Vol] 2.02 mg/dL 0.70-1.30 [facility] Work Phone: Comment on above: The validity of the calculated GFR & GFRAA in patients over 70 years has not been determined. Clinical correlation is essential. Serum or plasma urea nitroge n measurement (mass/volume)on 04-27-2022 Urea nitrogen [Mass/Vol] 27 mg/dL 7-18 [facility] Work Phone: Serum or plasma uric acid me asurement (mass/volume)on 04-27-2022 Urate [Mass/Vol] 6.5 mg/dL 3.5-7.2 [facility] Work Phone: Comment on above: The drugs N-Acetylcy steine and Metamizole may falsely depress this assay. Urine creatinine measurement (mass/volume)on 04-27-2022 Creatinine (U) [Mass/Vol] 69.70 mg/dL NO RANGE EST. [facility] Work Phone: Urine protein measurement (m ass/volume)on 04-27-2022 Protein (U) [Mass/Vol] 10.2 mg/dL 0.0-11.8 [facility] Work Phone: [phone] Urine protein/creatinine mas s ratioon 04-27-2022 Protein/Creatinine (U) [Mass ratio] 146 mg/g CRE 0-200 [facility] Work Phone: Basophil percentageon 2021 Basophil percentage 4.2 mg/dL 2.5-4.9 [facility] Work Phone: Chloride [Moles/Vol] 107 mmol/L 98-107 [facility] Work Phone: Glucose [Mass/Vol] 129 mg/dL 74-106 [facility] Work Phone: Comment on above: Fasting Glucose resu lt greater than or equal to 126 mg/dL suggests DIABETES MELLITUS per A.D.A. criteria. Potassium [Moles/Vol] 3.8 mmol/L 3.5-5.1 [facility] Work Phone: Sodium [Moles/Vol] 140 mmol/L 136-145 [facility] Work Phone: Basophil percentage 25-50 SEEN /hpf 0-5 [facility] Work Phone: Bilirubin Test strip Ql (U)o n 04-22-2022 Bilirubin Ql (U) Negative Negative [facility] Work Phone: Culture, urineon 04-22-2022 Bacteria identified Cx Nom (U) Positive [facility] Work Phone: Ketones Test strip Ql (U)on 04-22-2022 Ketones Ql (U) Negative Negative [facility] Work Phone: Laboratory - Chemistry and C hemistry - challengeon 04-22-2022 CO2 [Moles/Vol] 27.0 mmol/L 21.0-32.0 [facility] Work Phone: Urea nitrogen/Creatinine [Mass ratio] 8.2 mg/mg 10-20 [facility] Work Phone: Mucus LM Ql (Urine sed)on Mucus Ql (Urine sed) 0 SEEN /hpf [facility] Work Phone: Nitrite Test strip Ql (U)on 04-22-2022 Nitrite Ql (U) Negative Negative [facility] Work Phone: No Panel Informationon 04-22 Estimated GFR (MDRD) Amer 53 mL/min >60 [facility] Work Phone: Comment on above: GFR Calc Estimated GFR (MDRD) Non-Af Amer 44 mL/min >60 [facility] Work Phone: Comment on above: Non- GFR Calc Protein Test strip Ql (U)on 04-22-2022 Protein Ql (U) 15 mg/dl Negative [facility] Work Phone: Serum or plasma albumin you urement (mass/volume)on 04-22-2022 Albumin [Mass/Vol] 2.6 g/dL 3.2-5.0 [facility] Work Phone: Serum or plasma calcium you urement (mass/volume)on 04-22-2022 Calcium [Mass/Vol] 9.1 mg/dL 8.5-10.1 [facility] Work Phone: Serum or plasma creatinine m easurement (mass/volume)on 04-22-2022 Creatinine [Mass/Vol] 1.71 mg/dL 0.70-1.30 [facility] Work Phone: Comment on above: The validity of the calculated GFR & GFRAA in patients over 70 years has not been determined. Clinical correlation is essential. Serum or plasma urea nitroge n measurement (mass/volume)on 04-22-2022 Urea nitrogen [Mass/Vol] 14 mg/dL 7-18 [facility] Work Phone: Squamous epithelial cells de tection in urine sediment by light microscopyon 04-22-2022 Epithelial cells.squamous LM Ql (Urine sed) 0-5 SEEN /hpf 0-5 [facility] Work Phone: Urine blood detectionon RBC Ql (U) 10 /ul Negative [facility] Work Phone: RBC Ql (U) 0-5 SEEN /hpf 0-5 [facility] Work Phone: Urine clarityon 04-22-2022 Clarity (U) Clear Clear [facility] Work Phone: [phone] Urine color determinationon 04-22-2022 Color (U) Yellow Yellow [facility] Work Phone: Urine creatinine measurement (mass/volume)on 04-22-2022 Creatinine (U) [Mass/Vol] 171.00 mg/dL NO RANGE EST. [facility] Work Phone: [phone] Urine glucose detectionon Glucose Ql (U) Normal mg/dl Normal [facility] Work Phone: Urine leukocyte esterase det ection by dipstickon 04-22-2022 Leukocyte esterase Test strip Ql (U) 500 /ul Negative [facility] Work Phone: [phone] Urine pHon 04-22-2022 pH (U) 6.0 [pH] 5.0 - 8.0 [facility] Work Phone: [phone] Urine protein measurement (m ass/volume)on 04-22-2022 Protein (U) [Mass/Vol] 30.4 mg/dL 0.0-11.8 [facility] Work Phone: [phone] Urine protein/creatinine mas s ratioon 04-22-2022 Protein/Creatinine (U) [Mass ratio] 178 mg/g CRE 0-200 [facility] Work Phone: [phone] Urine sediment bacteria coun t by microscopy (number/high power field)on 04-22-2022 Bacteria LM.HPF (Urine sed) [#/Area] 0 /[HPF] None Seen [facility] Work Phone: Urine specific gravity measu rementon 04-22-2022 Specific gravity (U) [Rel density] 1.015 1.002-1.03 0 [facility] Work Phone: Urobilinogen Auto test strip Ql (U)on 04-22-2022 Urobilinogen Ql (U) Normal mg/dl Normal [facility] Work Phone: [phone] Absolute lymphocyte counton 04-21-2022 Lymphocytes Auto (Unsp spec) [#/Vol] 2.19 10*3/uL 0.83-4.51 [facility] Work Phone: Basophil percentageon 2021 Basophils/100 WBC (Bld) 0.6 % 0-1 [facility] Work Phone: Eosinophils/100 WBC (Bld) 2.4 % 0-5 [facility] Work Phone: Neutrophils (Bld) [#/Vol] 5.3 10*3/uL 2.0-7.7 [facility] Work Phone: Neutrophils/100 WBC (Bld) 60.5 % 47-70 [facility] Work Phone: WBC (Bld) [#/Vol] 8.8 10*3/uL 4.4-11.0 [facility] Work Phone: Blood erythrocytes count (nu mber/volume)on 04-21-2022 RBC (Bld) [#/Vol] 4.29 10*6/uL 4.6-6.2 [facility]: Blood hemoglobin measurement (mass/volume)on 04-21-2022 Hemoglobin (Bld) [Mass/Vol] 12.9 g/dL 13.0-16.5 [facility] Work Phone: Blood lymphocytes/100 leukoc yteson 04-21-2022 Lymphocytes/100 WBC (Bld) 24.9 % 19-41 [facility] Work Phone: Blood monocytes/100 leukocyt eson 04-21-2022 Monocytes/100 WBC (Bld) 11.4 % 0-10 [facility] Work Phone: Blood platelet mean volumeon 04-21-2022 Platelet mean volume (Bld) [Entitic vol] 9.5 fL 6.2-12.0 [facility] Work Phone: Determination of erythrocyte mean corpuscular volume (MCV)on 04-21-2022 MCV (RBC) [Entitic vol] 92.1 fL 80-94 [facility] Work Phone: Hematocrit Auto (Bld) [Volum e fraction]on 04-21-2022 Hematocrit (Bld) [Volume fraction] 39.5 % 40-54 [facility] Work Phone: Laboratory - Hematology and Cell countson 04-21-2022 Erythrocyte distribution width (RBC) [Entitic vol] 45.9 fL 35.1-43.9 [facility] Work Phone: [phone] Erythrocyte distribution width (RBC) [Ratio] 13.5 % 11.6-14.6 [facility] Work Phone: [phone] Immature granulocytes/100 WBC (Bld) 0.200 % 0.0-0.9 [facility] Work Phone: Comment on above: IG% - Immature Granu locytes (promyelocytes, myelocytes and metamyelocytes) > 1% indicates that a LEFT SHIFT is Present. MCH (RBC) [Entitic mass] 30.1 pg 27.0-32.0 [facility] Work Phone: [phone] Nucleated RBC/100 WBC (Bld) [Ratio] 0 % 0-5 [facility] Work Phone: [phone] MCHC Auto (RBC) [Mass/Vol]on 04-21-2022 MCHC (RBC) [Mass/Vol] 32.7 g/dL 32-36 [facility] Work Phone: [phone] Platelets bldon 04-21-2022 Platelets (Bld) [#/Vol] 199 10*3/uL 150-450 [facility] Work Phone: Serum or plasma uric acid me asurement (mass/volume)on 04-21-2022 Urate [Mass/Vol] 6.2 mg/dL 3.5-7.2 [facility] Work Phone: Comment on above: The drugs N-Acetylcy steine and Metamizole may falsely depress this assay. Laboratory - Microbiology an d Antimicrobial susceptibilityon 04-06-2022 SARS-CoV-2 (COVID-19) RNA AMANDO+probe Ql (Unsp spec) Detected Not Detect [facility] Work Phone: Comment on above: Normal Reference Ran ge: Not DetectedMethod:(RT-PCR) real-time reverse transcriptase PCRLuminex MORGAN Instrument*The Food and Drug Administration (FDA) has issued an Emergency Use Authorization (EAU) for the MORGAN SARS-CoV-2 Assay for the rapid detection of the virus that causes COVID-19. This test has been validated, but the FDAs independent review of this validation is pending.*Negative results do not preclude infection and should not be used as the sole basis for treatment or patient management. Optimum specimen types and timing for peak viral levels during infections caused by SARS-CoV-2 have not been determined. Collection of multiple specimens from the same patient may be necessary to detect the virus. The possibility of a false negative result should be considered if the patient has clinical presentation or has had recent exposure. Absolute lymphocyte counton 04-02-2022 Lymphocytes Auto (Unsp spec) [#/Vol] 1.96 10*3/uL 0.83-4.51 [facility] Work Phone: Basophil percentageon 2021 Basophils/100 WBC (Bld) 0.6 % 0-1 [facility] Work Phone: Chloride [Moles/Vol] 103 mmol/L 98-107 [facility] Work Phone: Eosinophils/100 WBC (Bld) 0.6 % 0-5 [facility] Work Phone: Glucose [Mass/Vol] 133 mg/dL 74-106 [facility] Work Phone: [phone] Comment on above: Fasting Glucose resu lt greater than or equal to 126 mg/dL suggests DIABETES MELLITUS per A.D.A. criteria. Neutrophils (Bld) [#/Vol] 7.3 10*3/uL 2.0-7.7 [facility] Work Phone: Neutrophils/100 WBC (Bld) 64.6 % 47-70 [facility] Work Phone: Potassium [Moles/Vol] 3.5 mmol/L 3.5-5.1 [facility] Work Phone: Sodium [Moles/Vol] 138 mmol/L 136-145 [facility] Work Phone: WBC (Bld) [#/Vol] 11.3 10*3/uL 4.4-11.0 [facility] Work Phone: Blood erythrocytes count (nu mber/volume)on 04-02-2022 RBC (Bld) [#/Vol] 4.81 10*6/uL 4.6-6.2 [facility] Work Phone: Blood hemoglobin measurement (mass/volume)on 04-02-2022 Hemoglobin (Bld) [Mass/Vol] 14.4 g/dL 13.0-16.5 [facility] Work Phone: Blood lymphocytes/100 leukoc yteson 04-02-2022 Lymphocytes/100 WBC (Bld) 17.3 % 19-41 [facility] Work Phone: Blood monocytes/100 leukocyt eson 04-02-2022 Monocytes/100 WBC (Bld) 15.7 % 0-10 [facility] Work Phone: Blood platelet mean volumeon 04-02-2022 Platelet mean volume (Bld) [Entitic vol] 10.0 fL 6.2-12.0 [facility] Work Phone: [phone] Determination of erythrocyte mean corpuscular volume (MCV)on 04-02-2022 MCV (RBC) [Entitic vol] 91.7 fL 80-94 [facility] Work Phone: Hematocrit Auto (Bld) [Volum e fraction]on 04-02-2022 Hematocrit (Bld) [Volume fraction] 44.1 % 40-54 [facility] Work Phone: [phone] Laboratory - Chemistry and C hemistry - challengeon 04-02-2022 CO2 [Moles/Vol] 26.0 mmol/L 21.0-32.0 [facility] Work Phone: Urea nitrogen/Creatinine [Mass ratio] 14.1 mg/mg -20 [facility] Work Phone: Laboratory - Hematology and Cell countson 04-02-2022 Erythrocyte distribution width (RBC) [Entitic vol] 47.8 fL 35.1-43.9 [facility] Work Phone: Erythrocyte distribution width (RBC) [Ratio] 14.0 % 11.6-14.6 [facility] Work Phone: Immature granulocytes/100 WBC (Bld) 1.200 % 0.0-0.9 [facility] Work Phone: Comment on above: IG% - Immature Granu locytes (promyelocytes, myelocytes and metamyelocytes) > 1% indicates that a LEFT SHIFT is Present. MCH (RBC) [Entitic mass] 29.9 pg 27.0-32.0 [facility] Work Phone: Nucleated RBC/100 WBC (Bld) [Ratio] 0 % 0-5 [facility] Work Phone: MCHC Auto (RBC) [Mass/Vol]on 04-02-2022 MCHC (RBC) [Mass/Vol] 32.7 g/dL 32-36 [facility] Work Phone: No Panel Informationon 04-02 Estimated GFR (MDRD) Amer 51 mL/min >60 [facility] Work Phone: Comment on above: GFR Calc Estimated GFR (MDRD) Non-Af Amer 42 mL/min >60 [facility] Work Phone: Comment on above: Non- GFR Calc Platelets bldon 04-02-2022 Platelets (Bld) [#/Vol] 160 10*3/uL 150-450 [facility] Work Phone: Review by pathologiston 03-15 Pathologist review Crispin (Unsp spec) [Interp] Reviewed [facility] Work Phone: Comment on above: Previous reported re sult: Bonnie kincaid Edited by: ETHEL on 04/06/22:912Leukocytosis. Tuan Servin M.D. 04/06/22 AMENDED REPORT 04/06/22 0913 PATH REV previously reported as: March foll Serum or plasma calcium you urement (mass/volume)on 04-02-2022 Calcium [Mass/Vol] 9.0 mg/dL 8.5-10.1 [facility] Work Phone: Serum or plasma creatinine m easurement (mass/volume)on 04-02-2022 Creatinine [Mass/Vol] 1.77 mg/dL 0.70-1.30 [facility] Work Phone: Comment on above: The validity of the calculated GFR & GFRAA in patients over 70 years has not been determined. Clinical correlation is essential. Serum or plasma urea nitroge n measurement (mass/volume)on 04-02-2022 Urea nitrogen [Mass/Vol] 25 mg/dL 7-18 [facility] Work Phone: Thin prep Papanicolaou smear with manual screeningon 04-02-2022 Thin prep Papanicolaou smear with manual screening 9 5-15 [facility] Work Phone: Absolute lymphocyte counton 03-25-2022 Lymphocytes Auto (Unsp spec) [#/Vol] 2.80 10*3/uL 0.83-4.51 [facility] Work Phone: Basophil percentageon 2021 Basophil percentage 4.0 mg/dL 2.5-4.9 [facility] Work Phone: [phone] Basophils/100 WBC (Bld) 0.6 % 0-1 [facility] Work Phone: [phone] Chloride [Moles/Vol] 106 mmol/L 98-107 [facility] Work Phone: Eosinophils/100 WBC (Bld) 1.7 % 0-5 [facility] Work Phone: [phone] Glucose [Mass/Vol] 164 mg/dL 74-106 [facility] Work Phone: Comment on above: Fasting Glucose resu lt greater than or equal to 126 mg/dL suggests DIABETES MELLITUS per A.D.A. criteria. Neutrophils (Bld) [#/Vol] 5.6 10*3/uL 2.0-7.7 [facility] Work Phone: Neutrophils/100 WBC (Bld) 56.9 % 47-70 [facility] Work Phone: Potassium [Moles/Vol] 3.8 mmol/L 3.5-5.1 [facility] Work Phone: [phone] Sodium [Moles/Vol] 139 mmol/L 136-145 [place] [facility] Work Phone: WBC (Bld) [#/Vol] 9.8 10*3/uL 4.4-11.0 [facility] Work Phone: [phone] Basophil percentage 0-5 SEEN /hpf 0-5 [facility] Work Phone: [phone] Bilirubin Test strip Ql (U)o n 03-25-2022 Bilirubin Ql (U) Negative Negative [facility] Work Phone: [phone] Blood erythrocytes count (nu mber/volume)on 03-25-2022 RBC (Bld) [#/Vol] 4.77 10*6/uL 4.6-6.2 [facility] Work Phone: [phone] Blood hemoglobin measurement (mass/volume)on 03-25-2022 Hemoglobin (Bld) [Mass/Vol] 14.1 g/dL 13.0-16.5 [facility] Work Phone: Blood lymphocytes/100 leukoc yteson 03-25-2022 Lymphocytes/100 WBC (Bld) 28.7 % 19-41 [facility] Work Phone: Blood monocytes/100 leukocyt eson 03-25-2022 Monocytes/100 WBC (Bld) 9.2 % 0-10 [facility] Work Phone: Blood platelet mean volumeon 03-25-2022 Platelet mean volume (Bld) [Entitic vol] 9.3 fL 6.2-12.0 [facility] Work Phone: [phone] Determination of erythrocyte mean corpuscular volume (MCV)on 03-25-2022 MCV (RBC) [Entitic vol] 91.4 fL 80-94 [facility] Work Phone: Hematocrit Auto (Bld) [Volum e fraction]on 03-25-2022 Hematocrit (Bld) [Volume fraction] 43.6 % 40-54 [facility] Work Phone: Ketones Test strip Ql (U)on 03-25-2022 Ketones Ql (U) Negative Negative [facility] Work Phone: Laboratory - Chemistry and C hemistry - challengeon 03-25-2022 CO2 [Moles/Vol] 26.0 mmol/L 21.0-32.0 [facility] Work Phone: Urea nitrogen/Creatinine [Mass ratio] 15.4 mg/mg 10-20 [facility] Work Phone: Laboratory - Hematology and Cell countson 03-25-2022 Erythrocyte distribution width (RBC) [Entitic vol] 45.9 fL 35.1-43.9 [facility] Work Phone: [phone] Erythrocyte distribution width (RBC) [Ratio] 13.6 % 11.6-14.6 [facility] Work Phone: [phone] Immature granulocytes/100 WBC (Bld) 2.900 % 0.0-0.9 [facility] Work Phone: Comment on above: IG% - Immature Granu locytes (promyelocytes, myelocytes and metamyelocytes) > 1% indicates that a LEFT SHIFT is Present. MCH (RBC) [Entitic mass] 29.6 pg 27.0-32.0 [facility] Work Phone: [phone] Nucleated RBC/100 WBC (Bld) [Ratio] 0 % 0-5 [facility] Work Phone: [phone] MCHC Auto (RBC) [Mass/Vol]on 03-25-2022 MCHC (RBC) [Mass/Vol] 32.3 g/dL 32-36 [facility] Work Phone: [phone] Mucus LM Ql (Urine sed)on Mucus Ql (Urine sed) 0 SEEN /hpf [facility] Work Phone: Nitrite Test strip Ql (U)on 03-25-2022 Nitrite Ql (U) Negative Negative [facility] Work Phone: No Panel Informationon 03-25 Estimated GFR (MDRD) Amer 52 mL/min >60 [facility] Work Phone: Comment on above: GFR Calc Estimated GFR (MDRD) Non-Af Amer 43 mL/min >60 [facility] Work Phone: Comment on above: Non- GFR Calc Platelets bldon 03-25-2022 Platelets (Bld) [#/Vol] 276 10*3/uL 150-450 [facility] Work Phone: Protein Test strip Ql (U)on 03-25-2022 Protein Ql (U) Negative Negative [facility] Work Phone: Serum or plasma albumin you urement (mass/volume)on 03-25-2022 Albumin [Mass/Vol] 2.9 g/dL 3.2-5.0 [facility] Work Phone: Serum or plasma calcium you urement (mass/volume)on 03-25-2022 Calcium [Mass/Vol] 8.7 mg/dL 8.5-10.1 [facility] Work Phone: Serum or plasma creatinine m easurement (mass/volume)on 03-25-2022 Creatinine [Mass/Vol] 1.75 mg/dL 0.70-1.30 [facility] Work Phone: Comment on above: The validity of the calculated GFR & GFRAA in patients over 70 years has not been determined. Clinical correlation is essential. Serum or plasma urea nitroge n measurement (mass/volume)on 03-25-2022 Urea nitrogen [Mass/Vol] 27 mg/dL 7-18 [facility] Work Phone: Squamous epithelial cells de tection in urine sediment by light microscopyon 03-25-2022 Epithelial cells.squamous LM Ql (Urine sed) 0-5 SEEN /hpf 0-5 [facility] Work Phone: Urine blood detectionon 03-14 RBC Ql (U) Negative Negative [facility] Work Phone: [phone] RBC Ql (U) 0 SEEN /hpf 0-5 [facility] Work Phone: Urine clarityon 03-25-2022 Clarity (U) Sl. Cloudy Clear [facility] Work Phone: Urine color determinationon 03-25-2022 Color (U) Yellow Yellow [facility] Work Phone: Urine creatinine measurement (mass/volume)on 03-25-2022 Creatinine (U) [Mass/Vol] 90.50 mg/dL NO RANGE EST. [facility] Work Phone: Urine glucose detectionon Glucose Ql (U) Normal mg/dl Normal [facility] Work Phone: Urine leukocyte esterase det ection by dipstickon 03-25-2022 Leukocyte esterase Test strip Ql (U) 25 /ul Negative [facility] Work Phone: [phone] Urine pHon 03-25-2022 pH (U) 6.0 [pH] 5.0 - 8.0 [facility] Work Phone: Urine protein measurement (m ass/volume)on 03-25-2022 Protein (U) [Mass/Vol] 15.8 mg/dL 0.0-11.8 [facility] Work Phone: Urine protein/creatinine mas s ratioon 03-25-2022 Protein/Creatinine (U) [Mass ratio] 175 mg/g CRE 0-200 [facility] Work Phone: [phone] Urine sediment bacteria coun t by microscopy (number/high power field)on 03-25-2022 Bacteria LM.HPF (Urine sed) [#/Area] 0 /[HPF] None Seen [facility] Work Phone: [phone] Urine specific gravity measu rementon 03-25-2022 Specific gravity (U) [Rel density] 1.015 1.002-1.03 0 [facility] Work Phone: Urobilinogen Auto test strip Ql (U)on 03-25-2022 Urobilinogen Ql (U) Normal mg/dl Normal [facility] Work Phone: Serum or plasma uric acid me asurement (mass/volume)on 03-19-2022 Urate [Mass/Vol] 8.3 mg/dL 3.5-7.2 [facility] Work Phone: Comment on above: The drugs N-Acetylcy steine and Metamizole may falsely depress this assay. Absolute lymphocyte counton 02-25-2022 Lymphocytes Auto (Unsp spec) [#/Vol] 2.27 10*3/uL 0.83-4.51 [facility] Work Phone: Basophil percentageon 2021 Basophil percentage 0 SEEN /hpf 0-5 [facility] Work Phone: [phone] Basophil percentage 4.3 mg/dL 2.5-4.9 [facility] Work Phone: Basophils/100 WBC (Bld) 0.3 % 0-1 [facility] Work Phone: [phone] Chloride [Moles/Vol] 102 mmol/L 98-107 [facility] Work Phone: [phone] Eosinophils/100 WBC (Bld) 0.2 % 0-5 [facility] Work Phone: [phone] Glucose [Mass/Vol] 107 mg/dL 74-106 [facility] Work Phone: Comment on above: Fasting Glucose resu lt from 100 to 125 mg/dL suggests IMPAIRED HOMEOSTASIS per A.D.A. criteria. Neutrophils (Bld) [#/Vol] 7.8 10*3/uL 2.0-7.7 [facility] Work Phone: [phone] Neutrophils/100 WBC (Bld) 67.9 % 47-70 [facility] Work Phone: [phone] Potassium [Moles/Vol] 4.1 mmol/L 3.5-5.1 [facility] Work Phone: Comment on above: Moderate Hemolysis, Result may be falsely increased. Sodium [Moles/Vol] 137 mmol/L 136-145 [facility] Work Phone: WBC (Bld) [#/Vol] 11.6 10*3/uL 4.4-11.0 [facility] Work Phone: [phone] Bilirubin Test strip Ql (U)o n 02-25-2022 Bilirubin Ql (U) Negative Negative [facility] Work Phone: [phone] Blood erythrocytes count (nu mber/volume)on 02-25-2022 RBC (Bld) [#/Vol] 4.09 10*6/uL 4.6-6.2 [facility] Work Phone: [phone] Blood hemoglobin measurement (mass/volume)on 02-25-2022 Hemoglobin (Bld) [Mass/Vol] 12.0 g/dL 13.0-16.5 [facility] Work Phone: Blood lymphocytes/100 leukoc yteson 02-25-2022 Lymphocytes/100 WBC (Bld) 19.7 % 19-41 [facility] Work Phone: Blood monocytes/100 leukocyt eson 02-25-2022 Monocytes/100 WBC (Bld) 9.0 % 0-10 [facility] Work Phone: Blood platelet adequacy dete ction by light microscopyon 02-25-2022 Platelets LM Ql (Bld) ADEQUATE ADEQ [facility] Work Phone: Blood platelet mean volumeon 02-25-2022 Platelet mean volume (Bld) [Entitic vol] 9.9 fL 6.2-12.0 [facility] Work Phone: Culture, urineon 02-25-2022 Bacteria identified Cx Nom (U) Culture exhibits no growth. [facility] Work Phone: [phone] Determination of erythrocyte mean corpuscular volume (MCV)on 02-25-2022 MCV (RBC) [Entitic vol] 90.2 fL 80-94 [facility] Work Phone: Hematocrit Auto (Bld) [Volum e fraction]on 02-25-2022 Hematocrit (Bld) [Volume fraction] 36.9 % 40-54 [facility] Work Phone: Ketones Test strip Ql (U)on 02-25-2022 Ketones Ql (U) Negative Negative [facility] Work Phone: Laboratory - Chemistry and C hemistry - challengeon 02-25-2022 CO2 [Moles/Vol] 26.0 mmol/L 21.0-32.0 [facility] Work Phone: Urea nitrogen/Creatinine [Mass ratio] 18.6 mg/mg 10-20 [facility] Work Phone: Laboratory - Hematology and Cell countson 02-25-2022 Erythrocyte distribution width (RBC) [Entitic vol] 46.8 fL 35.1-43.9 [facility] Work Phone: [phone] Erythrocyte distribution width (RBC) [Ratio] 14.1 % 11.6-14.6 [facility] Work Phone: [phone] Immature granulocytes/100 WBC (Bld) 2.900 % 0.0-0.9 [facility] Work Phone: Comment on above: IG% - Immature Granu locytes (promyelocytes, myelocytes and metamyelocytes) > 1% indicates that a LEFT SHIFT is Present. MCH (RBC) [Entitic mass] 29.3 pg 27.0-32.0 [facility] Work Phone: [phone] Nucleated RBC/100 WBC (Bld) [Ratio] 0 % 0-5 [facility] Work Phone: [phone] MCHC Auto (RBC) [Mass/Vol]on 02-25-2022 MCHC (RBC) [Mass/Vol] 32.5 g/dL 32-36 [facility] Work Phone: [phone] Mucus LM Ql (Urine sed)on Mucus Ql (Urine sed) 0 SEEN /hpf [facility] Work Phone: Nitrite Test strip Ql (U)on 02-25-2022 Nitrite Ql (U) Negative Negative [facility] Work Phone: No Panel Informationon 02-25 Estimated GFR (MDRD) Amer 43 mL/min >60 [facility] Work Phone: Comment on above: GFR Calc Estimated GFR (MDRD) Non-Af Amer 36 mL/min >60 [facility] Work Phone: Comment on above: Non- GFR Calc [place] Level 0.50 mmol/L 0.60-1.20 [facility] Work Phone: Platelets bldon 02-25-2022 Platelets (Bld) [#/Vol] TNP [facility] Work Phone: Comment on above: Test not performedPl ease note: For this sample, a platelet estimate is provided rather than a platelet count due to platelet clumping. Other parameters associated with this sample are not affected by platelet clumping. If a more accurate platelet count is required, a redraw of the patient will be necessary.Previous reported result: 202 [id number] by: RUPERTO on 02/25/22:1032 AMENDED REPORT 02/25/22 1032 PLT previously reported as: 202 K/mm3 Protein Test strip Ql (U)on 02-25-2022 Protein Ql (U) Negative Negative [facility] Work Phone: Serum or plasma albumin you urement (mass/volume)on 02-25-2022 Albumin [Mass/Vol] 3.2 g/dL 3.2-5.0 [facility] Work Phone: Serum or plasma calcium you urement (mass/volume)on 02-25-2022 Calcium [Mass/Vol] 8.4 mg/dL 8.5-10.1 [facility] Work Phone: Serum or plasma creatinine m easurement (mass/volume)on 02-25-2022 Creatinine [Mass/Vol] 2.04 mg/dL 0.70-1.30 [facility] Work Phone: Comment on above: The validity of the calculated GFR & GFRAA in patients over 70 years has not been determined. Clinical correlation is essential. Serum or plasma urea nitroge n measurement (mass/volume)on 02-25-2022 Urea nitrogen [Mass/Vol] 38 mg/dL 7-18 [facility] Work Phone: Serum or plasma uric acid me asurement (mass/volume)on 02-25-2022 Urate [Mass/Vol] 7.8 mg/dL 3.5-7.2 [facility] Work Phone: Comment on above: The drugs N-Acetylcy steine and Metamizole may falsely depress this assay. Squamous epithelial cells de tection in urine sediment by light microscopyon 02-25-2022 Epithelial cells.squamous LM Ql (Urine sed) 0 SEEN /hpf 0-5 [facility] Work Phone: Urine blood detectionon 02-12 RBC Ql (U) Negative Negative [facility] Work Phone: RBC Ql (U) 0 SEEN /hpf 0-5 [facility] Work Phone: Urine clarityon 02-25-2022 Clarity (U) Clear Clear [facility] Work Phone: Urine color determinationon 02-25-2022 Color (U) Yellow Yellow [facility] Work Phone: Urine creatinine measurement (mass/volume)on 02-25-2022 Creatinine (U) [Mass/Vol] 82.80 mg/dL NO RANGE EST. [facility] Work Phone: Urine glucose detectionon Glucose Ql (U) Normal mg/dl Normal [facility] Work Phone: [phone] Urine leukocyte esterase det ection by dipstickon 02-25-2022 Leukocyte esterase Test strip Ql (U) 25 /ul Negative [facility] Work Phone: Urine pHon 02-25-2022 pH (U) 6.0 [pH] 5.0 - 8.0 [facility] Work Phone: Urine protein measurement (m ass/volume)on 02-25-2022 Protein (U) [Mass/Vol] 13.8 mg/dL 0.0-11.8 [facility] Work Phone: [phone] Urine protein/creatinine mas s ratioon 02-25-2022 Protein/Creatinine (U) [Mass ratio] 167 mg/g CRE 0-200 [facility] Work Phone: [phone] Urine sediment bacteria coun t by microscopy (number/high power field)on 02-25-2022 Bacteria LM.HPF (Urine sed) [#/Area] 0 /[HPF] None Seen [facility] Work Phone: [phone] Urine specific gravity measu rementon 02-25-2022 Specific gravity (U) [Rel density] 1.020 1.002-1.03 0 [facility] Work Phone: [phone] Urobilinogen Auto test strip Ql (U)on 02-25-2022 Urobilinogen Ql (U) Normal mg/dl Normal [facility] Work Phone: [phone] Basophil percentageon 2021 Chloride [Moles/Vol] 110 mmol/L 98-107 [facility] Work Phone: [phone] Glucose [Mass/Vol] 125 mg/dL 74-106 [facility] Work Phone: [phone] Comment on above: Fasting Glucose resu lt from 100 to 125 mg/dL suggests IMPAIRED HOMEOSTASIS per A.D.A. criteria. Potassium [Moles/Vol] 4.1 mmol/L 3.5-5.1 [facility] Work Phone: [phone] Sodium [Moles/Vol] 139 mmol/L 136-145 [facility] Work Phone: [phone] Erythrocyte sedimentation ra meredith 02-18-2022 ESR (Bld) [Velocity] 12 mm/h 0-20 [facility] Work Phone: [phone] Laboratory - Chemistry and C hemistry - challengeon 02-18-2022 CO2 [Moles/Vol] 24.0 mmol/L 21.0-32.0 [facility] Work Phone: Urea nitrogen/Creatinine [Mass ratio] 11.8 mg/mg 10-20 [facility] Work Phone: No Panel Informationon 02-18 Estimated GFR (MDRD) Amer 48 mL/min >60 [facility] Work Phone: Comment on above: GFR Calc Estimated GFR (MDRD) Non-Af Amer 40 mL/min >60 [facility] Work Phone: Comment on above: Non- GFR Calc Serum or plasma calcium you urement (mass/volume)on 02-18-2022 Calcium [Mass/Vol] 8.7 mg/dL 8.5-10.1 [facility] Work Phone: Serum or plasma creatinine m easurement (mass/volume)on 02-18-2022 Creatinine [Mass/Vol] 1.86 mg/dL 0.70-1.30 [facility] Work Phone: Comment on above: The validity of the calculated GFR & GFRAA in patients over 70 years has not been determined. Clinical correlation is essential. Serum or plasma urea nitroge n measurement (mass/volume)on 02-18-2022 Urea nitrogen [Mass/Vol] 22 mg/dL 7-18 [facility] Work Phone: Serum or plasma uric acid me asurement (mass/volume)on 02-18-2022 Urate [Mass/Vol] 7.2 mg/dL 3.5-7.2 [facility] Work Phone: Comment on above: The drugs N-Acetylcy steine and Metamizole may falsely depress this assay. Thin prep Papanicolaou smear with manual screeningon 02-18-2022 Thin prep Papanicolaou smear with manual screening 5 5-15 [facility] Work Phone: Absolute lymphocyte counton 01-28-2022 Lymphocytes Auto (Unsp spec) [#/Vol] 1.90 10*3/uL 0.83-4.51 [facility] Work Phone: Basophil percentageon 2021 Basophil percentage 0 SEEN /hpf 0-5 [facility] Work Phone: Basophil percentage 2.7 mg/dL 2.5-4.9 [facility] Work [facility]: Basophils/100 WBC (Bld) 0.5 % 0-1 [facility] Work Phone: Chloride [Moles/Vol] 110 mmol/L 98-107 [facility] Work Phone: Eosinophils/100 WBC (Bld) 0.4 % 0-5 [facility] Work Phone: Glucose [Mass/Vol] 129 mg/dL 74-106 [facility] Work Phone: Comment on above: Fasting Glucose resu lt greater than or equal to 126 mg/dL suggests DIABETES MELLITUS per A.D.A. criteria. Neutrophils (Bld) [#/Vol] 8.0 10*3/uL 2.0-7.7 [facility] Work Phone: Neutrophils/100 WBC (Bld) 70.6 % 47-70 [facility] Work Phone: Potassium [Moles/Vol] 3.8 mmol/L 3.5-5.1 [facility] Work Phone: Sodium [Moles/Vol] 141 mmol/L 136-145 [facility] Work Phone: WBC (Bld) [#/Vol] 11.3 10*3/uL 4.4-11.0 [facility] Work Phone: Bilirubin Test strip Ql (U)o n 01-28-2022 Bilirubin Ql (U) Negative Negative [facility] Work Phone: Blood erythrocytes count (nu mber/volume)on 01-28-2022 RBC (Bld) [#/Vol] 4.23 10*6/uL 4.6-6.2 [facility] Work Phone: Blood hemoglobin measurement (mass/volume)on 01-28-2022 Hemoglobin (Bld) [Mass/Vol] 12.6 g/dL 13.0-16.5 [facility] Work Phone: [phone] Blood lymphocytes/100 leukoc yteson 01-28-2022 Lymphocytes/100 WBC (Bld) 16.8 % 19-41 [facility] Work Phone: Blood monocytes/100 leukocyt eson 01-28-2022 Monocytes/100 WBC (Bld) 10.0 % 0-10 [facility] Work Phone: [phone] Blood platelet mean volumeon 01-28-2022 Platelet mean volume (Bld) [Entitic vol] 9.3 fL 6.2-12.0 [facility] Work Phone: [phone] Determination of erythrocyte mean corpuscular volume (MCV)on 01-28-2022 MCV (RBC) [Entitic vol] 91.3 fL 80-94 [facility] Work Phone: [phone] Hematocrit Auto (Bld) [Volum e fraction]on 01-28-2022 Hematocrit (Bld) [Volume fraction] 38.6 % 40-54 [facility] Work Phone: [phone] Ketones Test strip Ql (U)on 01-28-2022 Ketones Ql (U) Negative Negative [facility] Work Phone: Laboratory - Chemistry and C hemistry - challengeon 01-28-2022 CO2 [Moles/Vol] 25.0 mmol/L 21.0-32.0 [facility] Work Phone: [phone] Urea nitrogen/Creatinine [Mass ratio] 14.7 mg/mg 10-20 [facility] Work Phone: [phone] Laboratory - Hematology and Cell countson 01-28-2022 Erythrocyte distribution width (RBC) [Entitic vol] 45.7 fL 35.1-43.9 [facility] Work Phone: [phone] Erythrocyte distribution width (RBC) [Ratio] 13.7 % 11.6-14.6 [facility] Work Phone: [phone] Immature granulocytes/100 WBC (Bld) 1.700 % 0.0-0.9 [facility] Work Phone: Comment on above: IG% - Immature Granu locytes (promyelocytes, myelocytes and metamyelocytes) > 1% indicates that a LEFT SHIFT is Present. MCH (RBC) [Entitic mass] 29.8 pg 27.0-32.0 [facility] Work Phone: Nucleated RBC/100 WBC (Bld) [Ratio] 0 % 0-5 [facility] Work Phone: MCHC Auto (RBC) [Mass/Vol]on 01-28-2022 MCHC (RBC) [Mass/Vol] 32.6 g/dL 32-36 [facility] Work Phone: Mucus LM Ql (Urine sed)on Mucus Ql (Urine sed) 0 SEEN /hpf [facility] Work Phone: Nitrite Test strip Ql (U)on 01-28-2022 Nitrite Ql (U) Negative Negative [facility] Work Phone: No Panel Informationon 01-28 Urine Microalbumin/Creatinine Ratio 77.0 mg/g CRE <30 [facility] Work Phone: Estimated GFR (MDRD) Amer 56 mL/min >60 [facility] Work Phone: Comment on above: GFR Calc Estimated GFR (MDRD) Non-Af Amer 46 mL/min >60 [facility] Work Phone: Comment on above: Non- GFR Calc Platelets bldon 01-28-2022 Platelets (Bld) [#/Vol] 240 10*3/uL 150-450 [facility] Work Phone: Protein Test strip Ql (U)on 01-28-2022 Protein Ql (U) Negative Negative [facility] Work Phone: Serum or plasma albumin you urement (mass/volume)on 01-28-2022 Albumin [Mass/Vol] 3.2 g/dL 3.2-5.0 [facility] Work Phone: Serum or plasma calcium you urement (mass/volume)on 01-28-2022 Calcium [Mass/Vol] 8.4 mg/dL 8.5-10.1 [facility] Work Phone: Serum or plasma creatinine m easurement (mass/volume)on 01-28-2022 Creatinine [Mass/Vol] 1.63 mg/dL 0.70-1.30 [facility] Work Phone: Comment on above: The validity of the calculated GFR & GFRAA in patients over 70 years has not been determined. Clinical correlation is essential. Serum or plasma urea nitroge n measurement (mass/volume)on 01-28-2022 Urea nitrogen [Mass/Vol] 24 mg/dL 7-18 [facility] Work Phone: Squamous epithelial cells de tection in urine sediment by light microscopyon 01-28-2022 Epithelial cells.squamous LM Ql (Urine sed) 0-5 SEEN /hpf 0-5 [facility] Work Phone: Thin prep Papanicolaou smear with manual screeningon 01-28-2022 Thin prep Papanicolaou smear with manual screening 28.5 mg/L NO RANGE EST. [facility] Work Phone: Urine blood detectionon 01-12 RBC Ql (U) Negative Negative [facility] Work Phone: RBC Ql (U) 0 SEEN /hpf 0-5 [facility] Work Phone: Urine clarityon 01-28-2022 Clarity (U) Sl. Cloudy Clear [facility] Work Phone: Urine color determinationon 01-28-2022 Color (U) Yellow Yellow [facility] Work Phone: Urine creatinine measurement (mass/volume)on 01-28-2022 Creatinine (U) [Mass/Vol] 37.00 mg/dL NO RANGE EST. [facility] Work Phone: Urine glucose detectionon Glucose Ql (U) Normal mg/dl Normal [facility] Work Phone: Urine leukocyte esterase det ection by dipstickon 01-28-2022 Leukocyte esterase Test strip Ql (U) Negative Negative [facility] Work Phone: Urine pHon 01-28-2022 pH (U) 7.0 [pH] 5.0 - 8.0 [facility] Work Phone: Urine sediment bacteria coun t by microscopy (number/high power field)on 01-28-2022 Bacteria LM.HPF (Urine sed) [#/Area] 0 /[HPF] None Seen [facility] Work Phone: Urine specific gravity measu rementon 01-28-2022 Specific gravity (U) [Rel density] 1.010 1.002-1.03 0 [facility] Work Phone: Urobilinogen Auto test strip Ql (U)on 01-28-2022 Urobilinogen Ql (U) Normal mg/dl Normal [facility] Work Phone: No Panel Informationon 01-25 [place] Level 0.50 mmol/L 0.60-1.20 [facility] Work Phone: Basophil percentageon 2021 Cholesterol [Mass/Vol] 140 mg/dL <200 [facility] Work Phone: Comment on above: <200 mg/dL Desirable 200-240 mg/dL Borderline >240 mg/dL High Risk Triglyceride [Mass/Vol] 247 mg/dL <199 [facility] Work Phone: Comment on above: The drugs N-Acetylcy steine and Metamizole may falsely depress this assay.Serum Triglycerides Reference Interval Normal <150 mg/dL Borderline high 150 - 199 mg/dL High 200 - 499 mg/dL Very High > or = 500 mg/dL No Panel Informationon 01-04 [place] Level 0.50 mmol/L 0.60-1.20 [facility] Work Phone: Serum or plasma cholesterol in HDL measurement (mass/volume)on 01-04-2022 Cholesterol in HDL [Mass/Vol] 34 mg/dL >40 [facility] Work Phone: Comment on above: The drugs N-Acetylcy steine and Metamizole may falsely depress this assay. Reference Range HDL <40 mg/dL Low HDL Cholesterol HDL >or= 60 mg/dL High HDL Cholesterol Serum or plasma cholesterol in VLDL measurement (mass/volume)on 01-04-2022 Cholesterol in VLDL [Mass/Vol] 49 mg/dL 5-40 [facility] Work Phone: [phone] Serum or plasma low density lipoprotein (LDL) cholesterol measurement (mass/volume)on 01-04-2022 Cholesterol in LDL [Mass/Vol] 57 mg/dL 0-130 [facility] Work Phone: No Panel Informationon 12-07 [place] Level 0.50 mmol/L 0.60-1.20 [facility] Work Phone: [phone] Absolute lymphocyte counton 12-03-2021 Lymphocytes Auto (Unsp spec) [#/Vol] 2.02 10*3/uL 0.83-4.51 [facility] Work Phone: [phone] Basophil percentageon 2021 Basophils/100 WBC (Bld) 1.1 % 0-1 [facility] Work Phone: Chloride [Moles/Vol] 108 mmol/L 98-107 [facility] Work Phone: Eosinophils/100 WBC (Bld) 2.9 % 0-5 [facility] Work Phone: [phone] Glucose [Mass/Vol] 118 mg/dL 74-106 [facility] Work Phone: [phone] Comment on above: Fasting Glucose resu lt from 100 to 125 mg/dL suggests IMPAIRED HOMEOSTASIS per A.D.A. criteria. Neutrophils (Bld) [#/Vol] 4.3 10*3/uL 2.0-7.7 [facility] Work Phone: Neutrophils/100 WBC (Bld) 57.2 % 47-70 [facility] Work Phone: [phone] Potassium [Moles/Vol] 3.9 mmol/L 3.5-5.1 [facility] Work Phone: Sodium [Moles/Vol] 140 mmol/L 136-145 [facility] Work [facility]: WBC (Bld) [#/Vol] 7.5 10*3/uL 4.4-11.0 [facility] Work Phone: [phone] Bilirubin Test strip Ql (U)o n 12-03-2021 Bilirubin Ql (U) Negative Negative [facility] Work Phone: [phone] Blood erythrocytes count (nu mber/volume)on 12-03-2021 RBC (Bld) [#/Vol] 4.70 10*6/uL 4.6-6.2 [facility] Work Phone: [phone] Blood hemoglobin measurement (mass/volume)on 12-03-2021 Hemoglobin (Bld) [Mass/Vol] 13.7 g/dL 13.0-16.5 [facility] Work Phone: Blood lymphocytes/100 leukoc yteson 12-03-2021 Lymphocytes/100 WBC (Bld) 27.1 % 19-41 [facility] Work Phone: Blood monocytes/100 leukocyt eson 12-03-2021 Monocytes/100 WBC (Bld) 11.0 % 0-10 [facility] Work Phone: [phone] Blood platelet mean volumeon 12-03-2021 Platelet mean volume (Bld) [Entitic vol] 9.1 fL 6.2-12.0 [facility] Work Phone: [phone] Culture, urineon 12-03-2021 Bacteria identified Cx Nom (U) Culture exhibits no growth. [facility] Work Phone: [phone] Determination of erythrocyte mean corpuscular volume (MCV)on 12-03-2021 MCV (RBC) [Entitic vol] 88.9 fL 80-94 [facility] Work Phone: Hematocrit Auto (Bld) [Volum e fraction]on 12-03-2021 Hematocrit (Bld) [Volume fraction] 41.8 % 40-54 [facility] Work Phone: [phone] Ketones Test strip Ql (U)on 12-03-2021 Ketones Ql (U) Negative Negative [facility] Work Phone: Laboratory - Chemistry and C hemistry - challengeon 12-03-2021 CO2 [Moles/Vol] 27.0 mmol/L 21.0-32.0 [facility] Work Phone: Urea nitrogen/Creatinine [Mass ratio] 9.7 mg/mg 10-20 [facility] Work Phone: Laboratory - Hematology and Cell countson 12-03-2021 Erythrocyte distribution width (RBC) [Entitic vol] 43.4 fL 35.1-43.9 [facility] Work Phone: Erythrocyte distribution width (RBC) [Ratio] 13.2 % 11.6-14.6 [facility] Work Phone: Immature granulocytes/100 WBC (Bld) 0.700 % 0.0-0.9 [facility] Work Phone: Comment on above: IG% - Immature Granu locytes (promyelocytes, myelocytes and metamyelocytes) > 1% indicates that a LEFT SHIFT is Present. MCH (RBC) [Entitic mass] 29.1 pg 27.0-32.0 [facility] Work Phone: Nucleated RBC/100 WBC (Bld) [Ratio] 0 % 0-5 [facility] Work Phone: MCHC Auto (RBC) [Mass/Vol]on 12-03-2021 MCHC (RBC) [Mass/Vol] 32.8 g/dL 32-36 [facility] Work Phone: Nitrite Test strip Ql (U)on 12-03-2021 Nitrite Ql (U) Negative Negative [facility] Work Phone: No Panel Informationon 12-03 Estimated GFR (MDRD) Amer 43 mL/min >60 [facility] Work Phone: Comment on above: GFR Calc Estimated GFR (MDRD) Non-Af Amer 35 mL/min >60 [facility] Work Phone: Comment on above: Non- GFR Calc [place] Level 0.50 mmol/L 0.60-1.20 [facility] Work Phone: Platelets bldon 12-03-2021 Platelets (Bld) [#/Vol] 230 10*3/uL 150-450 [facility] Work Phone: Protein Test strip Ql (U)on 12-03-2021 Protein Ql (U) Negative Negative [facility] Work Phone: Serum or plasma calcium you urement (mass/volume)on 12-03-2021 Calcium [Mass/Vol] 8.9 mg/dL 8.5-10.1 [facility] Work Phone: Serum or plasma creatinine m easurement (mass/volume)on 12-03-2021 Creatinine [Mass/Vol] 2.07 mg/dL 0.70-1.30 [facility] Work Phone: Comment on above: The validity of the calculated GFR & GFRAA in patients over 70 years has not been determined. Clinical correlation is essential. Serum or plasma urea nitroge n measurement (mass/volume)on 12-03-2021 Urea nitrogen [Mass/Vol] 20 mg/dL 7-18 [facility] Work Phone: Thin prep Papanicolaou smear with manual screeningon 12-03-2021 Thin prep Papanicolaou smear with manual screening 5 5-15 [facility] Work Phone: Urine blood detectionon 11-15 RBC Ql (U) Negative Negative [facility] Work Phone: Urine clarityon 12-03-2021 Clarity (U) Clear Clear [facility] Work Phone: Urine color determinationon 12-03-2021 Color (U) Yellow Yellow [facility] Work Phone: Urine glucose detectionon Glucose Ql (U) Normal mg/dl Normal [facility] Work Phone: Urine leukocyte esterase det ection by dipstickon 12-03-2021 Leukocyte esterase Test strip Ql (U) Negative Negative [facility] Work Phone: [phone] Urine pHon 12-03-2021 pH (U) 7.0 [pH] [facility] Work Phone: Urine specific gravity measu rementon 12-03-2021 Specific gravity (U) [Rel density] 1.010 [facility] Work Phone: Urobilinogen Auto test strip Ql (U)on 12-03-2021 Urobilinogen Ql (U) Normal mg/dl Normal [facility] Work Phone: [phone] No Panel Informationon 11-09 [place] Level 0.40 mmol/L 0.60-1.20 [facility] Work Phone: [phone] Absolute lymphocyte counton 11-05-2021 Lymphocytes Auto (Unsp spec) [#/Vol] 2.12 10*3/uL 0.83-4.51 [facility] Work Phone: [phone] Basophil percentageon 2020 Chloride [Moles/Vol] 110 mmol/L 98-107 [facility] Work Phone: [phone] Eosinophils/100 WBC (Bld) 2.8 % 0-5 [facility] Work Phone: [phone] Glucose [Mass/Vol] 132 mg/dL 74-106 [facility] Work Phone: [phone] Comment on above: Fasting Glucose resu lt greater than or equal to 126 mg/dL suggests DIABETES MELLITUS per A.D.A. criteria.Please note revised GLUCOSE reference range effective 2017. Neutrophils (Bld) [#/Vol] 5.7 10*3/uL 2.0-7.7 [facility] Work Phone: [phone] Potassium [Moles/Vol] 4.0 mmol/L 3.5-5.1 [facility] Work Phone: [phone] Sodium [Moles/Vol] 143 mmol/L 136-145 [facility] Work Phone: [phone] WBC (Bld) [#/Vol] 9.3 10*3/uL 4.4-11.0 [facility] Work Phone: [phone] Basophil percentage 10-25 SEEN /hpf [facility] Work Phone: [phone] Bilirubin Test strip Ql (U)o n 11-05-2021 Bilirubin Ql (U) Negative Negative [facility] Work Phone: [phone] Blood erythrocytes count (nu mber/volume)on 11-05-2021 RBC (Bld) [#/Vol] 4.57 10*6/uL 4.6-6.2 [facility] Work Phone: [phone] Blood hemoglobin measurement (mass/volume)on 11-05-2021 Hemoglobin (Bld) [Mass/Vol] 13.4 g/dL 13.0-16.5 [facility] Work Phone: Blood lymphocytes/100 leukoc yteson 11-05-2021 Lymphocytes/100 WBC (Bld) 22.9 % 19-41 [facility] Work Phone: Blood monocytes/100 leukocyt eson 11-05-2021 Monocytes/100 WBC (Bld) 10.9 % 0-10 [facility] Work Phone: [phone] Blood platelet mean volumeon 11-05-2021 Platelet mean volume (Bld) [Entitic vol] 9.1 fL 6.2-12.0 [facility] Work Phone: [phone] Culture, urineon 11-05-2021 Bacteria identified Cx Nom (U) Streptococcus mitis/ oralis [facility] Work Phone: [phone] Determination of erythrocyte mean corpuscular volume (MCV)on 11-05-2021 MCV (RBC) [Entitic vol] 89.5 fL 80-94 [facility] Work Phone: [phone] Hematocrit Auto (Bld) [Volum e fraction]on 11-05-2021 Hematocrit (Bld) [Volume fraction] 40.9 % 40-54 [facility] Work Phone: [phone] Ketones Test strip Ql (U)on 11-05-2021 Ketones Ql (U) Negative Negative [facility] Work Phone: Laboratory - Chemistry and C hemistry - challengeon 11-05-2021 CO2 [Moles/Vol] 28.0 mmol/L 21.0-32.0 [facility] Work Phone: Urea nitrogen/Creatinine [Mass ratio] 11.6 mg/mg 10-20 [facility] Work Phone: Laboratory - Hematology and Cell countson 11-05-2021 Basophils/100 WBC (Unsp spec) 0.9 % 0-1 [facility] Work Phone: [phone] Erythrocyte distribution width (RBC) [Entitic vol] 43.5 fL 35.1-43.9 [facility] Work Phone: [phone] Erythrocyte distribution width (RBC) [Ratio] 13.3 % 11.6-14.6 [facility] Work Phone: [phone] Immature granulocytes/100 WBC (Bld) 0.600 % 0.0-0.9 [facility] Work Phone: Comment on above: IG% - Immature Granu locytes (promyelocytes, myelocytes and metamyelocytes) > 1% indicates that a LEFT SHIFT is Present. MCH (RBC) [Entitic mass] 29.3 pg 27.0-32.0 [facility] Work Phone: Neutrophils/100 WBC (Bld) 61.9 % 47-70 [facility] Work Phone: [phone] Nucleated RBC/100 WBC (Bld) [Ratio] 0 % 0-5 [facility] Work Phone: MCHC Auto (RBC) [Mass/Vol]on 11-05-2021 MCHC (RBC) [Mass/Vol] 32.8 g/dL 32-36 [facility] Work Phone: Mucus LM Ql (Urine sed)on Mucus Ql (Urine sed) 0 SEEN /hpf [facility] Work Phone: Nitrite Test strip Ql (U)on 11-05-2021 Nitrite Ql (U) Negative Negative [facility] Work Phone: No Panel Informationon 11-05 Estimated GFR (MDRD) Amer 47 mL/min >60 [facility] Work Phone: Comment on above: GFR Calc Estimated GFR (MDRD) Non-Af Amer 39 mL/min >60 [facility] Work Phone: Comment on above: Non- GFR Calc Platelets bldon 11-05-2021 Platelets (Bld) [#/Vol] 218 10*3/uL 150-450 [facility] Work Phone: Protein Test strip Ql (U)on 11-05-2021 Protein Ql (U) 15 mg/dl Negative [facility] Work Phone: Serum or plasma albumin you urement (mass/volume)on 11-05-2021 Albumin [Mass/Vol] 2.7 g/dL 3.2-5.0 [facility] Work Phone: Serum or plasma calcium you urement (mass/volume)on 11-05-2021 Calcium [Mass/Vol] 8.7 mg/dL 8.5-10.1 [facility] Work Phone: Serum or plasma creatinine m easurement (mass/volume)on 11-05-2021 Creatinine [Mass/Vol] 1.90 mg/dL 0.70-1.30 [facility] Work Phone: Comment on above: The validity of the calculated GFR & GFRAA in patients over 70 years has not been determined. Clinical correlation is essential. Serum or plasma urea nitroge n measurement (mass/volume)on 11-05-2021 Urea nitrogen [Mass/Vol] 22 mg/dL 7-18 [facility] Work Phone: Squamous epithelial cells de tection in urine sediment by light microscopyon 11-05-2021 Epithelial cells.squamous LM Ql (Urine sed) 0-5 SEEN /hpf [facility] Work Phone: Thin prep Papanicolaou smear with manual screeningon 11-05-2021 Thin prep Papanicolaou smear with manual screening 5 5-15 [facility] Work Phone: Urine blood detectionon 10-15 RBC Ql (U) Negative Negative [facility] Work Phone: [phone] RBC Ql (U) 0 SEEN /hpf [facility] Work Phone: Urine clarityon 11-05-2021 Clarity (U) Sl. Cloudy Clear [facility] Work Phone: Urine color determinationon 11-05-2021 Color (U) Yellow Yellow [facility] Work Phone: Urine creatinine measurement (mass/volume)on 11-05-2021 Creatinine (U) [Mass/Vol] 169.00 mg/dL NO RANGE EST. [facility] Work Phone: [phone] Urine glucose detectionon Glucose Ql (U) Normal mg/dl Normal [facility] Work Phone: Urine leukocyte esterase det ection by dipstickon 11-05-2021 Leukocyte esterase Test strip Ql (U) 100 /ul Negative [facility] Work Phone: [phone] Urine pHon 11-05-2021 pH (U) 6.0 [pH] [facility] Work Phone: Urine protein measurement (m ass/volume)on 11-05-2021 Protein (U) [Mass/Vol] 21.0 mg/dL 0.0-11.8 [facility] Work Phone: [phone] Urine protein/creatinine mas s ratioon 11-05-2021 Protein/Creatinine (U) [Mass ratio] 124 mg/g CRE 0-200 [facility] Work Phone: [phone] Urine sediment bacteria coun t by microscopy (number/high power field)on 11-05-2021 Bacteria LM.HPF (Urine sed) [#/Area] 0 /[HPF] None Seen [facility] Work Phone: [phone] Urine specific gravity measu rementon 11-05-2021 Specific gravity (U) [Rel density] 1.020 [facility] Work Phone: [phone] Urobilinogen Auto test strip Ql (U)on 11-05-2021 Urobilinogen Ql (U) Normal mg/dl Normal [facility] Work Phone: CBC Auto Differentialon 10-15 Erythrocyte distribution width (RBC) [Ratio] 14.5 % 11.5 - 14.5 % [place] Hematocrit (Bld) [Volume fraction] 42.1 % 40 - 52 % [place] Hemoglobin (Bld) [Mass/Vol] 13.8 g/dL 13 - 18 g/dL [place] Interpretation and review of laboratory results Abnormal [place] MCH (RBC) [Entitic mass] 28.8 pg 26 - 34 pg [place] MCHC (RBC) [Mass/Vol] 32.7 % 32 - 36 % [place] MCV (RBC) [Entitic vol] 88.1 fL 80 - 98 fL [place] Platelet mean volume (Bld) [Entitic vol] 7.9 fL 7.4 - 10.4 fL [place] Platelets (Bld) [#/Vol] 356 10*3/uL 140 - 440 10*3/uL [place] RBC (Bld) [#/Vol] 4.78 10*6/uL 4.4 - 5.9 10*6/uL [place] WBC (Bld) [#/Vol] 16.4 10*3/uL High 3.6 - 10.7 10*3/uL [place] Test Performed by [facility], [address], [place], [place] [address] [place] Comp Panel with Mg Reflexon 11-04-2020 Calcium [Mass/Vol] 8.9 mg/dL Normal 8.4-10.4 [facility] Comment on above: Performed By: #### H EMOG, CMP3M, CRP2, LDH3, FIBGN, DDI2, APTT, FERR3 #### [facility] [address] [place] [address] ALP [Catalytic activity/Vol] 83 U/L Normal 38-126 [facility] Comment on above: Performed By: #### H EMOG, CMP3M, CRP2, LDH3, FIBGN, DDI2, APTT, FERR3 #### [facility] [address] [place] [address] ALT [Catalytic activity/Vol] 133 U/L High 0-49 [facility] Comment on above: Result Comment: The ALT test is performed by an updated assay method. Please note that the reference intervals have been changed and are now sex specific. Performed By: #### H EMOG, CMP3M, CRP2, LDH3, FIBGN, DDI2, APTT, FERR3 #### [facility] [address] [place] [address] Anion gap [Moles/Vol] 9 Normal [facility] Comment on above: Performed By: #### H EMOG, CMP3M, CRP2, LDH3, FIBGN, DDI2, APTT, FERR3 #### [facility] [address] [place] [address] AST [Catalytic activity/Vol] 39 U/L Normal 15-46 [facility] Comment on above: Performed By: #### H EMOG, CMP3M, CRP2, LDH3, FIBGN, DDI2, APTT, FERR3 #### [facility] [address] [place] [address] Bilirubin [Mass/Vol] 0.6 mg/dL Normal 0.2-1.3 [facility] Comment on above: Performed By: #### H EMOG, CMP3M, CRP2, LDH3, FIBGN, DDI2, APTT, FERR3 #### [facility] [address] [place] [address] CO2 [Moles/Vol] 20 mmol/L Low 22-30 [facility] Comment on above: Performed By: #### H EMOG, CMP3M, CRP2, LDH3, FIBGN, DDI2, APTT, FERR3 #### [facility] [address] [place] [address] Glucose [Mass/Vol] 140 mg/dL High 70-100 [facility] Comment on above: Performed By: #### H EMOG, CMP3M, CRP2, LDH3, FIBGN, DDI2, APTT, FERR3 #### [facility] [address] [place] [address] Protein [Mass/Vol] 6.1 g/dL Low 6.3-8.2 [facility] Comment on above: Performed By: #### H EMOG, CMP3M, CRP2, LDH3, FIBGN, DDI2, APTT, FERR3 #### [facility] [address] [place] [address] Urea nitrogen [Mass/Vol] 41 mg/dL High 7-20 [facility] Comment on above: Performed By: #### H EMOG, CMP3M, CRP2, LDH3, FIBGN, DDI2, APTT, FERR3 #### [facility] [address] [place] [address] Creatinine [Mass/Vol] 1.84 mg/dL High 0.52-1.25 [facility] Comment on above: Performed By: #### H EMOG, CMP3M, CRP2, LDH3, FIBGN, DDI2, APTT, FERR3 #### [facility] [address] [place] [address] GFR/1.73 sq M predicted among blacks MDRD (S/P/Bld) [Vol rate/Area] 46.0 mL/min/{1.73_m2} Abnormal >60 [facility] Comment on above: Performed By: #### H EMOG, CMP3M, CRP2, LDH3, FIBGN, DDI2, APTT, FERR3 #### [facility] [address] [place] [address] GFR/1.73 sq M predicted among non-blacks MDRD (S/P/Bld) [Vol rate/Area] 39.7 mL/min/{1.73_m2} Abnormal >60 [facility] Comment on above: Result Comment: KDIG O guidelines provide the following GFR categories: Stage GFR(ml/min/1.73 m2) Terms G1 >=90 Normal or high G2 60-89 Mildly decreased* G3a 45-59 Mildly to moderately decreased G3b 30-44 Moderately to severely decreased G4 15-29 Severely decreased G5 <15 Kidney failure *Relative to young adult level. In the absence of evidence of kidney damage, neither GFR category G1 nor G2 fulfill the criteria for CKD. The CKD-EPI equation is validated in individuals 18 years of age and older. Currently the best equation for estimating glomerular filtration rate (GFR) from serum creatinine in children is the Bedside Garcia equation. It is less accurate in patients with extremes of muscle mass, restriction of dietary protein, ingestion of creatine, extra-renal metabolism of creatinine, or treatment with medications that affect renal tubular creatinine secretion. Performed By: #### H EMOG, CMP3M, CRP2, LDH3, FIBGN, DDI2, APTT, FERR3 #### [facility] [address] [place] [address] Albumin [Mass/Vol] 3.4 g/dL Low 3.5-5.0 [facility] Comment on above: Performed By: #### H EMOG, CMP3M, CRP2, LDH3, FIBGN, DDI2, APTT, FERR3 #### [facility] [address] [place] [address] Chloride [Moles/Vol] 106 mmol/L Normal 98-107 [facility] Comment on above: Performed By: #### H EMOG, CMP3M, CRP2, LDH3, FIBGN, DDI2, APTT, FERR3 #### [facility] [address] [place] [address] Potassium [Moles/Vol] 4.3 mmol/L Normal 3.5-5.1 [facility] Comment on above: Performed By: #### H EMOG, CMP3M, CRP2, LDH3, FIBGN, DDI2, APTT, FERR3 #### [facility] [address] [place] [address] Sodium [Moles/Vol] 134 mmol/L Low 135-145 [facility] Comment on above: Performed By: #### H EMOG, CMP3M, CRP2, LDH3, FIBGN, DDI2, APTT, FERR3 #### [facility] [address] [facility] [place] [address] Comprehensive Metabolic Pane l w/ Reflex to MGon 11-04-2020 Albumin [Mass/Vol] 3.4 g/dL Low 3.5 - 5 g/dL [facility] [place], [place] ALP [Catalytic activity/Vol] 83 U/L 38 - 126 U/L [place] ALT [Catalytic activity/Vol] 133 U/L High 0 - 49 U/L [place] Comment on above: The ALT test is perf ormed by an updated assay method. Please note that the reference intervals have been changed and are now sex specific. Anion gap [Moles/Vol] 9 mmol/L [place] AST [Catalytic activity/Vol] 39 U/L 15 - 46 U/L [place] Bilirubin Ql (U) 0.6 mg/dL 0.2 - 1.3 mg/dL [place] Calcium [Mass/Vol] 8.9 mg/dL 8.4 - 10. 4 mg/dL [place] Chloride [Moles/Vol] 106 mmol/L 98 - 10 7 mmol/L [place] CO2 [Moles/Vol] 20 mmol/L Low 22 - 30 mmol/L [place] Creatinine [Mass/Vol] 1.84 mg/dL High 0.52 - 1.25 mg/dL [place] EGFR IF NonAfrican Prydeinig 39.7 mL/min Abnormal >60 [place] Comment on above: KDIGO guidelines pro vide the following GFR categories: Stage GFR(ml/min/1.73 m2) Terms G1 >=90 Normal or high G2 60-89 Mildly decreased* G3a 45-59 Mildly to moderately decreased G3b 30-44 Moderately to severely decreased G4 15-29 Severely decreased G5 <15 Kidney failure *Relative to young adult level. In the absence of evidence of kidney damage, neither GFR category G1 nor G2 fulfill the criteria for CKD. The CKD-EPI equation is validated in individuals 18 years of age and older. Currently the best equation for estimating glomerular filtration rate (GFR) from serum creatinine in children is the Bedside Garcia equation. It is less accurate in patients with extremes of muscle mass, restriction of dietary protein, ingestion of creatine, extra-renal metabolism of creatinine, or treatment with medications that affect renal tubular creatinine secretion. GFR/1.73 sq M predicted among blacks MDRD (S/P/Bld) [Vol rate/Area] 46.0 mL/min/{1.73_m2} Abnormal >60 [place] Glucose [Mass/Vol] 140 mg/dL High 70 - 100 mg/dL [place] Interpretation and review of laboratory results Abnormal [place] Potassium [Moles/Vol] 4.3 mmol/L 3.5 - 5.1 mmol/L [place] Protein [Mass/Vol] 6.1 g/dL Low 6.3 - 8.2 g/dL [place] Sodium [Moles/Vol] 134 mmol/L Low 135 - 145 mmol/L [place] Urea nitrogen [Mass/Vol] 41 mg/dL High 7 - 20 mg/dL [place] Test Performed by [facility], [address] [place] [address] [place] Hemogram w/ Autodiffon 11-04 Erythrocyte distribution width (RBC) [Ratio] 14.5 % Normal 11.5-14.5 [facility] Comment on above: Performed By: #### H EMOG, CMP3M, CRP2, LDH3, FIBGN, DDI2, APTT, FERR3 #### [facility] [address] [place] [address] Hematocrit (Bld) [Volume fraction] 42.1 % Normal 40.0-52.0 [facility] Comment on above: Performed By: #### H EMOG, CMP3M, CRP2, LDH3, FIBGN, DDI2, APTT, FERR3 #### [facility] [address] [place] [place] [address] Hemoglobin (Bld) [Mass/Vol] 13.8 g/dL Normal 13.0-18.0 [facility] Comment on above: Performed By: #### H EMOG, CMP3M, CRP2, LDH3, FIBGN, DDI2, APTT, FERR3 #### [facility] [address] [place] [address] MCH (RBC) [Entitic mass] 28.8 pg Normal 26.0-34.0 [facility] Comment on above: Performed By: #### H EMOG, CMP3M, CRP2, LDH3, FIBGN, DDI2, APTT, FERR3 #### [facility] [address] [place] [address] MCHC (RBC) [Mass/Vol] 32.7 % Normal 32.0-36.0 [facility] Comment on above: Performed By: #### H EMOG, CMP3M, CRP2, LDH3, FIBGN, DDI2, APTT, FERR3 #### [facility] [address] [place] [address] MCV (RBC) [Entitic vol] 88.1 fL Normal 80.0-98.0 [facility] Comment on above: Performed By: #### H EMOG, CMP3M, CRP2, LDH3, FIBGN, DDI2, APTT, FERR3 #### [facility] [address] [place] [address] Platelet mean volume (Bld) [Entitic vol] 7.9 fL Normal 7.4-10.4 [facility] Comment on above: Performed By: #### H EMOG, CMP3M, CRP2, LDH3, FIBGN, DDI2, APTT, FERR3 #### [facility] [address] [place] [address] Platelets (Bld) [#/Vol] 356 10*3/uL Normal 140-440 [facility] Comment on above: Performed By: #### H EMOG, CMP3M, CRP2, LDH3, FIBGN, DDI2, APTT, FERR3 #### [facility] [address] [place] [address] RBC (Bld) [#/Vol] 4.78 10*6/uL Normal 4.40-5.90 [facility] Comment on above: Performed By: #### H EMOG, CMP3M, CRP2, LDH3, FIBGN, DDI2, APTT, FERR3 #### [facility] [address] [place] [address] WBC (Bld) [#/Vol] 16.4 10*3/uL High 3.6-10.7 [facility] Comment on above: Performed By: #### H EMOG, CMP3M, CRP2, LDH3, FIBGN, DDI2, APTT, FERR3 #### [facility] [address] [place] [facility] Manual Diffon 11-04-2020 Abs Baso Cnt 0.0 10*3/uL Normal 0.0-0.2 [facility] Comment on above: Performed By: #### H EMOG, CMP3M, CRP2, LDH3, FIBGN, DDI2, APTT, FERR3 #### [facility] [address] [place] [facility] Abs Eosin Cnt 0.0 10*3/uL Normal 0.0-0.5 [facility] Comment on above: Performed By: #### H EMOG, CMP3M, CRP2, LDH3, FIBGN, DDI2, APTT, FERR3 #### [facility] [address] [place] [facility] Abs Lymph Cnt 1.0 10*3/uL Low 1.1-4.5 [facility] Comment on above: Performed By: #### H EMOG, CMP3M, CRP2, LDH3, FIBGN, DDI2, APTT, FERR3 #### [facility] [address] [place] [address] Abs Monocyte Cnt 1.3 10*3/uL High 0.2-1.1 [facility] Comment on above: Performed By: #### H EMOG, CMP3M, CRP2, LDH3, FIBGN, DDI2, APTT, FERR3 #### [facility] [address] [place] [address] Abs Neutrophile Cnt 13.1 10*3/uL High 2.2-8.2 [facility] Comment on above: Performed By: #### H EMOG, CMP3M, CRP2, LDH3, FIBGN, DDI2, APTT, FERR3 #### [facility] [address] [place] [facility] Anisocytosis Ql (Bld) Slight Normal [facility] Comment on above: Performed By: #### H EMOG, CMP3M, CRP2, LDH3, FIBGN, DDI2, APTT, FERR3 #### [facility] [address] [place] [facility] Bands 2 % Normal 0-3 [facility] Comment on above: Performed By: #### H EMOG, CMP3M, CRP2, LDH3, FIBGN, DDI2, APTT, FERR3 #### [facility] [address] [place] [address] Basophils 0 % Normal 0-2 [facility] Comment on above: Performed By: #### H EMOG, CMP3M, CRP2, LDH3, FIBGN, DDI2, APTT, FERR3 #### [facility] [address] [place] [address] [place] Cells Slight Normal [facility] Comment on above: Performed By: #### H EMOG, CMP3M, CRP2, LDH3, FIBGN, DDI2, APTT, FERR3 #### [facility] [address] [place] [address] Cells counted 100 Normal [facility] Comment on above: Performed By: #### H EMOG, CMP3M, CRP2, LDH3, FIBGN, DDI2, APTT, FERR3 #### [facility] [address] [place] [address] Eosinophils 0 % Low 1-6 [facility] Comment on above: Performed By: #### H EMOG, CMP3M, CRP2, LDH3, FIBGN, DDI2, APTT, FERR3 #### [facility] [address] [place] [address] Lymphocytes 6 % Low 20-40 [facility] Comment on above: Performed By: #### H EMOG, CMP3M, CRP2, LDH3, FIBGN, DDI2, APTT, FERR3 #### [facility] [address] [place] [address] Metamyelocytes 5 % Abnormal <1 [facility] Comment on above: Performed By: #### H EMOG, CMP3M, CRP2, LDH3, FIBGN, DDI2, APTT, FERR3 #### [facility] [address] [place] [address] Monocytes 8 % Normal 2-10 [facility] Comment on above: Performed By: #### H EMOG, CMP3M, CRP2, LDH3, FIBGN, DDI2, APTT, FERR3 #### [facility] [address] [place] [address] Myelocytes 1 % Abnormal <1 [facility] Comment on above: Performed By: #### H EMOG, CMP3M, CRP2, LDH3, FIBGN, DDI2, APTT, FERR3 #### [facility] [address] [place] [place] [address] Poikilocytosis Slight Normal [facility] Comment on above: Performed By: #### H EMOG, CMP3M, CRP2, LDH3, FIBGN, DDI2, APTT, FERR3 #### [facility] [address] [place] [address] RBC morphology finding Nom (Bld) ABNORMAL Normal [facility] Comment on above: Performed By: #### H EMOG, CMP3M, CRP2, LDH3, FIBGN, DDI2, APTT, FERR3 #### [facility] [address] [place] [address] Seg Neutrophils 78 % Normal 40-80 [facility] Comment on above: Performed By: #### H EMOG, CMP3M, CRP2, LDH3, FIBGN, DDI2, APTT, FERR3 #### [facility] [address] [place] [address] Manual Differentialon 2019 Absolute Baso # 0.0 10*3/uL 0 - 0.2 10*3/uL [facility], [place] Absolute Eos # 0.0 10*3/uL 0 - 0.5 10*3/uL [facility] Absolute Lymph # 1.0 10*3/uL Low 1.1 - 4.5 10*3/uL [facility] Absolute [place] # 1.3 10*3/uL High 0.2 - 1.1 10*3/uL [facility] Absolute Neut # 13.1 10*3/uL High 2.2 - 8.2 10*3/uL [facility] Anisocytosis Ql (Bld) Slight [facility], [place] Bands 2 % 0 - 3 % [facility], [place] Basophils 0 % 0 - 2 % [place] Cells Slight [place] Eosinophils 0 % Low 1 - 6 % [place] Interpretation and review of laboratory results Abnormal [place] Lymphocytes 6 % Low 20 - 40 % [place] Metamyelocytes 5 % Abnormal <1 [place] Monocytes 8 % 2 - 10 % [place] Myelocytes 1 % Abnormal <1 [place] Poikilocytes Slight [place] RBC morphology finding Nom (Bld) ABNORMAL [place] Seg Neutrophils 78 % 40 - 80 % [place] TOTAL CELLS COUNTED 100 [place] Test Performed by [facility], [address] [place] [address] [place] Add On Lab Teston 11-03-2020 Sodium [Moles/Vol] Accepted [place] Comment on above: Specimen available & acceptable for analysis. Test Performed by [facility], [address] [place] [address] [place] Add on test from HISon 11-03 Add on test from HIS Accepted Normal [facility] Comment on above: Result Comment: Spec imen available & acceptable for analysis. Performed By: #### H EMOG, CMP3M, CRP2, LDH3, FIBGN, DDI2, APTT, FERR3 #### [facility] [address] [place] [address] CBC Auto Differentialon 10-15 Erythrocyte distribution width (RBC) [Ratio] 14.3 % 11.5 - 14.5 % [place] Hematocrit (Bld) [Volume fraction] 39.0 % Low 40 - 52 % [place] Hemoglobin (Bld) [Mass/Vol] 12.8 g/dL Low 13 - 18 g/dL [place] Interpretation and review of laboratory results Abnormal [place] MCH (RBC) [Entitic mass] 28.7 pg 26 - 34 pg [place] MCHC (RBC) [Mass/Vol] 32.8 % 32 - 36 % [place] MCV (RBC) [Entitic vol] 87.6 fL 80 - 98 fL [place] Platelet mean volume (Bld) [Entitic vol] 7.5 fL 7.4 - 10.4 fL [place] Platelets (Bld) [#/Vol] 332 10*3/uL 140 - 440 10*3/uL [place] RBC (Bld) [#/Vol] 4.45 10*6/uL 4.4 - 5.9 10*6/uL [place] WBC (Bld) [#/Vol] 15.6 10*3/uL High 3.6 - 10.7 10*3/uL [place] Test Performed by [facility], [address] CR Chest PA/LATon 11-03-2020 CR Chest PA/LAT Patient Name: REGGIE WILSON Diagnostic Radiology ACCESSION EXAM DATE/TIME PROCEDURE ORDERING PROVIDER [id number] 11/03/2020 10:20 EST CR Chest PA and LAT MD DIAZ IMOLA KINGA CPT code 65044 Reason For Exam (CR Chest PA and LAT) persistent hypoxia after treatment of Covid, concern for superimposed PNA Report CLINICAL INFORMATION: Hypoxia. Covid pneumonia. PA and lateral views of the chest are provided and compared with the previous study dated 10/28/2020. FINDINGS: The cardiac silhouette and mediastinum are within normal limits. Patchy groundglass infiltrates are noted bilaterally, most pronounced in the right lower lobe and lingula of the left upper lobe. The aeration of the lungs has significantly improved. IMPRESSION: 1. Improving bilateral infiltrates. Report Dictated on Workstation: [id number] Final Dictating Physician: MD BURDICK JEFFREY Signed Date and Time: 11/03/2020 10:58 am Signed by: MD BURDICK JEFFREY Transcribed Date and Time: 11/03/2020 10:59 Normal [facility] Comp Panel with Mg Reflexon 11-03-2020 Calcium [Mass/Vol] 9.0 mg/dL Normal 8.4-10.4 [facility] Comment on above: Performed By: #### H EMOG, CMP3M, CRP2, LDH3, FIBGN, DDI2, APTT, FERR3 #### [facility] [address] [place] [address] Anion gap [Moles/Vol] 5 Normal [facility] Comment on above: Performed By: #### H EMOG, CMP3M, CRP2, LDH3, FIBGN, DDI2, APTT, FERR3 #### [facility] [address] [place] [address] Bilirubin [Mass/Vol] 0.7 mg/dL Normal 0.2-1.3 [facility] Comment on above: Performed By: #### H EMOG, CMP3M, CRP2, LDH3, FIBGN, DDI2, APTT, FERR3 #### [facility] [address] [place] [address] Creatinine [Mass/Vol] 2.08 mg/dL High 0.52-1.25 [facility] Comment on above: Performed By: #### H EMOG, CMP3M, CRP2, LDH3, FIBGN, DDI2, APTT, FERR3 #### [facility] [address] [place] [address] GFR/1.73 sq M predicted among blacks MDRD (S/P/Bld) [Vol rate/Area] 39.6 mL/min/{1.73_m2} Abnormal >60 [facility] Comment on above: Performed By: #### H EMOG, CMP3M, CRP2, LDH3, FIBGN, DDI2, APTT, FERR3 #### [facility] [address] [place] [address] GFR/1.73 sq M predicted among non-blacks MDRD (S/P/Bld) [Vol rate/Area] 34.2 mL/min/{1.73_m2} Abnormal >60 [facility] Comment on above: Result Comment: KDIG O guidelines provide the following GFR categories: Stage GFR(ml/min/1.73 m2) Terms G1 >=90 Normal or high G2 60-89 Mildly decreased* G3a 45-59 Mildly to moderately decreased G3b 30-44 Moderately to severely decreased G4 15-29 Severely decreased G5 <15 Kidney failure *Relative to young adult level. In the absence of evidence of kidney damage, neither GFR category G1 nor G2 fulfill the criteria for CKD. The CKD-EPI equation is validated in individuals 18 years of age and older. Currently the best equation for estimating glomerular filtration rate (GFR) from serum creatinine in children is the Bedside Garcia equation. It is less accurate in patients with extremes of muscle mass, restriction of dietary protein, ingestion of creatine, extra-renal metabolism of creatinine, or treatment with medications that affect renal tubular creatinine secretion. Performed By: #### H EMOG, CMP3M, CRP2, LDH3, FIBGN, DDI2, APTT, FERR3 #### [facility] [address] [place] [address] Albumin [Mass/Vol] 3.4 g/dL Low 3.5-5.0 [facility] Comment on above: Performed By: #### H EMOG, CMP3M, CRP2, LDH3, FIBGN, DDI2, APTT, FERR3 #### [facility] [address] [place] [address] Chloride [Moles/Vol] 107 mmol/L Normal 98-107 [facility] Comment on above: Performed By: #### H EMOG, CMP3M, CRP2, LDH3, FIBGN, DDI2, APTT, FERR3 #### [facility] [address] [place] [place] [address] Potassium [Moles/Vol] 3.8 mmol/L Normal 3.5-5.1 [facility] Comment on above: Performed By: #### H EMOG, CMP3M, CRP2, LDH3, FIBGN, DDI2, APTT, FERR3 #### [facility] [address] [place] [address] Sodium [Moles/Vol] 134 mmol/L Low 135-145 [facility] Comment on above: Performed By: #### H EMOG, CMP3M, CRP2, LDH3, FIBGN, DDI2, APTT, FERR3 #### [facility] [address] [place] [address] ALP [Catalytic activity/Vol] 83 U/L Normal 38-126 [facility] [place] Comment on above: Performed By: #### H EMOG, CMP3M, CRP2, LDH3, FIBGN, DDI2, APTT, FERR3 #### [facility] [address] [place] [address] ALT [Catalytic activity/Vol] 175 U/L High 0-49 [place] Comment on above: Result Comment: The ALT test is performed by an updated assay method. Please note that the reference intervals have been changed and are now sex specific. Performed By: #### H EMOG, CMP3M, CRP2, LDH3, FIBGN, DDI2, APTT, FERR3 #### [facility] [address] [place] [address] The ALT test is perf ormed by an updated assay method. Please note that the reference intervals have been changed and are now sex specific. AST [Catalytic activity/Vol] 63 U/L High 15-46 [place] Comment on above: Performed By: #### H EMOG, CMP3M, CRP2, LDH3, FIBGN, DDI2, APTT, FERR3 #### [place] [address] [place] [address] CO2 [Moles/Vol] 21 mmol/L Low 22-30 [place] Comment on above: Performed By: #### H EMOG, CMP3M, CRP2, LDH3, FIBGN, DDI2, APTT, FERR3 #### [place] [address] [place] [address] Glucose [Mass/Vol] 139 mg/dL High 70-100 [place] Comment on above: Performed By: #### H EMOG, CMP3M, CRP2, LDH3, FIBGN, DDI2, APTT, FERR3 #### [facility] [address] [place] [address] Protein [Mass/Vol] 5.9 g/dL Low 6.3-8.2 [place] Comment on above: Performed By: #### H EMOG, CMP3M, CRP2, LDH3, FIBGN, DDI2, APTT, FERR3 #### [place] [address] [place] [address] Urea nitrogen [Mass/Vol] 43 mg/dL High 7-20 [place] Comment on above: Performed By: #### H EMOG, CMP3M, CRP2, LDH3, FIBGN, DDI2, APTT, FERR3 #### [facility] [address] [place] [address] Comprehensive Metabolic Pane l w/ Reflex to MGon 11-03-2020 Albumin [Mass/Vol] 3.4 g/dL Low 3.5 - 5 g/dL [place] Anion gap [Moles/Vol] 5 mmol/L [place] Bilirubin Ql (U) 0.7 mg/dL 0.2 - 1.3 mg/dL [place] Calcium [Mass/Vol] 9.0 mg/dL 8.4 - 10. 4 mg/dL [place] Chloride [Moles/Vol] 107 mmol/L 98 - 10 7 mmol/L [place] Creatinine [Mass/Vol] 2.08 mg/dL High 0.52 - 1.25 mg/dL [place] EGFR IF NonAfrican Prydeinig 34.2 mL/min Abnormal >60 [place] Comment on above: KDIGO guidelines pro vide the following GFR categories: Stage GFR(ml/min/1.73 m2) Terms G1 >=90 Normal or high G2 60-89 Mildly decreased* G3a 45-59 Mildly to moderately decreased G3b 30-44 Moderately to severely decreased G4 15-29 Severely decreased G5 <15 Kidney failure *Relative to young adult level. In the absence of evidence of kidney damage, neither GFR category G1 nor G2 fulfill the criteria for CKD. The CKD-EPI equation is validated in individuals 18 years of age and older. Currently the best equation for estimating glomerular filtration rate (GFR) from serum creatinine in children is the Bedside Garcia equation. It is less accurate in patients with extremes of muscle mass, restriction of dietary protein, ingestion of creatine, extra-renal metabolism of creatinine, or treatment with medications that affect renal tubular creatinine secretion. GFR/1.73 sq M predicted among blacks MDRD (S/P/Bld) [Vol rate/Area] 39.6 mL/min/{1.73_m2} Abnormal >60 [place] Interpretation and review of laboratory results Abnormal [place] Potassium [Moles/Vol] 3.8 mmol/L 3.5 - 5.1 mmol/L [place] Sodium [Moles/Vol] 134 mmol/L Low 135 - 145 mmol/L [place] Test Performed by [facility], [address] [place] [address] [place] Hemogram w/ Autodiffon 11-03 Erythrocyte distribution width (RBC) [Ratio] 14.3 % Normal 11.5-14.5 [facility] Comment on above: Performed By: #### H EMOG, CMP3M, CRP2, LDH3, FIBGN, DDI2, APTT, FERR3 #### [facility] [address] [place] [address] Hematocrit (Bld) [Volume fraction] 39.0 % Low 40.0-52.0 [facility] Comment on above: Performed By: #### H EMOG, CMP3M, CRP2, LDH3, FIBGN, DDI2, APTT, FERR3 #### [facility] [address] [place] [address] Hemoglobin (Bld) [Mass/Vol] 12.8 g/dL Low 13.0-18.0 [facility] Comment on above: Performed By: #### H EMOG, CMP3M, CRP2, LDH3, FIBGN, DDI2, APTT, FERR3 #### [facility] [address] [place] [address] MCH (RBC) [Entitic mass] 28.7 pg Normal 26.0-34.0 [facility] Comment on above: Performed By: #### H EMOG, CMP3M, CRP2, LDH3, FIBGN, DDI2, APTT, FERR3 #### [facility] [address] [place] [address] MCHC (RBC) [Mass/Vol] 32.8 % Normal 32.0-36.0 [facility] Comment on above: Performed By: #### H EMOG, CMP3M, CRP2, LDH3, FIBGN, DDI2, APTT, FERR3 #### [facility] [address] [place] [address] MCV (RBC) [Entitic vol] 87.6 fL Normal 80.0-98.0 [facility] Comment on above: Performed By: #### H EMOG, CMP3M, CRP2, LDH3, FIBGN, DDI2, APTT, FERR3 #### [facility] [address] [place] [address] Platelet mean volume (Bld) [Entitic vol] 7.5 fL Normal 7.4-10.4 [facility] Comment on above: Performed By: #### H EMOG, CMP3M, CRP2, LDH3, FIBGN, DDI2, APTT, FERR3 #### [facility] [address] [place] [address] Platelets (Bld) [#/Vol] 332 10*3/uL Normal 140-440 [facility] Comment on above: Performed By: #### H EMOG, CMP3M, CRP2, LDH3, FIBGN, DDI2, APTT, FERR3 #### [facility] [address] [place] [address] RBC (Bld) [#/Vol] 4.45 10*6/uL Normal 4.40-5.90 [facility] Comment on above: Performed By: #### H EMOG, CMP3M, CRP2, LDH3, FIBGN, DDI2, APTT, FERR3 #### [facility] [address] [place] [address] WBC (Bld) [#/Vol] 15.6 10*3/uL High 3.6-10.7 [facility] Comment on above: Performed By: #### H EMOG, CMP3M, CRP2, LDH3, FIBGN, DDI2, APTT, FERR3 #### [facility] [address] [place] [address] Manual Diffon 11-03-2020 Abs Lymph Cnt 2.0 10*3/uL Normal 1.1-4.5 [facility] Comment on above: Performed By: #### H EMOG, CMP3M, CRP2, LDH3, FIBGN, DDI2, APTT, FERR3 #### [facility] [address] [place] [address] Abs Monocyte Cnt 2.2 10*3/uL High 0.2-1.1 [facility] Comment on above: Performed By: #### H EMOG, CMP3M, CRP2, LDH3, FIBGN, DDI2, APTT, FERR3 #### [facility] [address] [place] [address] Abs Neutrophile Cnt 11.4 10*3/uL High 2.2-8.2 [facility] Comment on above: Performed By: #### H EMOG, CMP3M, CRP2, LDH3, FIBGN, DDI2, APTT, FERR3 #### [facility] [address] [place] [address] Anisocytosis Ql (Bld) Slight Normal [facility] Comment on above: Performed By: #### H EMOG, CMP3M, CRP2, LDH3, FIBGN, DDI2, APTT, FERR3 #### [facility] [address] [place] [address] Bands 4 % High 0-3 [facility] Comment on above: Performed By: #### H EMOG, CMP3M, CRP2, LDH3, FIBGN, DDI2, APTT, FERR3 #### [facility] [address] [place] [address] [place] Cells Slight Normal [facility] Comment on above: Performed By: #### H EMOG, CMP3M, CRP2, LDH3, FIBGN, DDI2, APTT, FERR3 #### [facility] [address] [place] [address] Lymphocytes 13 % Low 20-40 [facility] Comment on above: Performed By: #### H EMOG, CMP3M, CRP2, LDH3, FIBGN, DDI2, APTT, FERR3 #### [facility] [address] [place] [address] Monocytes 14 % High 2-10 [facility] Comment on above: Performed By: #### H EMOG, CMP3M, CRP2, LDH3, FIBGN, DDI2, APTT, FERR3 #### [facility] [address] [place] [address] NRBC 1 /100{WBCs} High -1-0 [facility] Comment on above: Result Comment: Newb orn (<60 days) 1-10 Adult <1 Performed By: #### H EMOG, CMP3M, CRP2, LDH3, FIBGN, DDI2, APTT, FERR3 #### [facility] [address] [place] [address] RBC morphology finding Nom (Bld) ABNORMAL Normal [facility] Comment on above: Performed By: #### H EMOG, CMP3M, CRP2, LDH3, FIBGN, DDI2, APTT, FERR3 #### [facility] [address] [place] [address] Seg Neutrophils 69 % Normal 40-80 [facility] Comment on above: Performed By: #### H EMOG, CMP3M, CRP2, LDH3, FIBGN, DDI2, APTT, FERR3 #### [facility] [address] [place] [address] Tear Drop Forms Slight Normal [facility] Comment on above: Performed By: #### H EMOG, CMP3M, CRP2, LDH3, FIBGN, DDI2, APTT, FERR3 #### [facility] [address] [place] [address] Abs Baso Cnt 0.0 10*3/uL Normal 0.0-0.2 [facility] Comment on above: Performed By: #### H EMOG, CMP3M, CRP2, LDH3, FIBGN, DDI2, APTT, FERR3 #### [facility] [address] [place] [address] Abs Eosin Cnt 0.0 10*3/uL Normal 0.0-0.5 [facility] Comment on above: Performed By: #### H EMOG, CMP3M, CRP2, LDH3, FIBGN, DDI2, APTT, FERR3 #### [facility] [address] [place] [address] Basophils 0 % Normal 0-2 [facility] Comment on above: Performed By: #### H EMOG, CMP3M, CRP2, LDH3, FIBGN, DDI2, APTT, FERR3 #### [facility] [address] [place] [address] Cells counted 100 Normal [facility] Comment on above: Performed By: #### H EMOG, CMP3M, CRP2, LDH3, FIBGN, DDI2, APTT, FERR3 #### [facility] [address] [place] [address] Eosinophils 0 % Low 1-6 [facility] Comment on above: Performed By: #### H EMOG, CMP3M, CRP2, LDH3, FIBGN, DDI2, APTT, FERR3 #### [facility] [address] [place] [address] Manual Differentialon 2019 Absolute Baso # 0.0 10*3/uL 0 - 0.2 10*3/uL [place] Absolute Eos # 0.0 10*3/uL 0 - 0.5 10*3/uL [place] Absolute Lymph # 2.0 10*3/uL 1.1 - 4.5 10*3/uL [place] Absolute [place] # 2.2 10*3/uL High 0.2 - 1.1 10*3/uL [place] Absolute Neut # 11.4 10*3/uL High 2.2 - 8.2 10*3/uL [place] Anisocytosis Ql (Bld) Slight [place], [place] Bands 4 % High 0 - 3 % [place] Basophils 0 % 0 - 2 % [place] Cells Slight [place] Eosinophils 0 % Low 1 - 6 % [place] Interpretation and review of laboratory results Abnormal [place] Lymphocytes 13 % Low 20 - 40 % [place] Monocytes 14 % High 2 - 10 % [place] nRBC 1 /100{WBCs} High -1 - 0 /100{WBCs} [place] Comment on above: (<60 days) 1 -10 Adult <1 RBC morphology finding Nom (Bld) ABNORMAL [place] Seg Neutrophils 69 % 40 - 80 % [place] Tear Drop Cells Slight [place] TOTAL CELLS COUNTED 100 [place] Test Performed by [facility], [address], [place] [address] [place] Procalcitoninon 11-03-2020 Procalcitonin < 0.10 Normal <0.10 [facility] Comment on above: Performed By: #### H EMOG, CMP3M, CRP2, LDH3, FIBGN, DDI2, APTT, FERR3 #### [facility] [address] [place] [place] [address] Procalcitonin <0.10 <0.10 ng/mL [place] Sodium [Moles/Vol] See Below [place] Comment on above: PCT <0.50 = Low risk of severe sepsis and/or septic shock. PCT >2.00 = High risk of severe sepsis and/or septic shock. Test Performed by [facility], [address] [place] [address] [place] Interpretation See Below Normal [facility] Comment on above: Result Comment: PCT <0.50 = Low risk of severe sepsis and/or septic shock. PCT >2.00 = High risk of severe sepsis and/or septic shock. Performed By: #### H EMOG, CMP3M, CRP2, LDH3, FIBGN, DDI2, APTT, FERR3 #### [facility] [address] [place] [place] [address] XR CHEST (2 VW)on 11-03-2020 Michel, [facility] Incoming Radiology Results From [facility] - 11/03/2020 10:59 AM EST Patient Name: REGGIE LEÓN Diagnostic Radiology ACCESSION EXAM DATE/TIME PROCEDURE ORDERING PROVIDER [id number] 11/03/2020 10:20 EST CR Chest PA & LAT MD EMILY, FARRUKH MCCORMICK CPT code 02614 Reason For Exam (CR Chest PA & LAT) persistent hypoxia after treatment of Covid, concern for superimposed PNA Report CLINICAL INFORMATION: Hypoxia. Covid pneumonia. PA and lateral views of the chest are provided and compared with the previous study dated 10/28/2020. FINDINGS: The cardiac silhouette and mediastinum are within normal limits. Patchy groundglass infiltrates are noted bilaterally, most pronounced in the right lower lobe and lingula of the left upper lobe. The aeration of the lungs has significantly improved. IMPRESSION: 1. Improving bilateral infiltrates. Report Dictated on Workstation: [id number] --- Final --- Dictating Physician: MD BURDICK JEFFREY Signed Date and Time: 11/03/2020 10:58 am Signed by: MD BURDICK JEFFREY Transcribed Date and Time: 11/03/2020 10:59 [place] Patient Name: REGGIE WILSON Diagnostic Radiology ACCESSION EXAM DATE/TIME PROCEDURE ORDERING PROVIDER [id number] 11/03/2020 10:20 EST CR Chest PA & LAT MD DIAZ IMOLA KINGA CPT code 39791 Reason For Exam (CR Chest PA & LAT) persistent hypoxia after treatment of Covid, concern for superimposed PNA Report CLINICAL INFORMATION: Hypoxia. Covid pneumonia. PA and lateral views of the chest are provided and compared with the previous study dated 10/28/2020. FINDINGS: The cardiac silhouette and mediastinum are within normal limits. Patchy groundglass infiltrates are noted bilaterally, most pronounced in the right lower lobe and lingula of the left upper lobe. The aeration of the lungs has significantly improved. IMPRESSION: 1. Improving bilateral infiltrates. Report Dictated on Workstation: [id number] --- Final --- Dictating Physician: MD BURDICK JEFFREY Signed Date and Time: 11/03/2020 10:58 am Signed by: MD BURDICK JEFFREY Transcribed Date and Time: 11/03/2020 10:59 [place] APTTon 11-02-2020 aPTT Coag (Bld) [Time] 30.4 s Normal 20.0-30.5 [facility] Comment on above: Result Comment: NOTE : The therapeutic time for Heparin anticoagulation, based on Xa activity inhibition, is an APTT of 46-80 seconds. Performed By: #### H EMOG, CMP3M, CRP2, LDH3, FIBGN, DDI2, APTT, FERR3 #### [facility] [address] [place] [address] aPTT Coag (Bld) [Time] 30.4 s 20 - 30.5 s [place] Comment on above: NOTE: The therapeuti c time for Heparin anticoagulation, based on Xa activity inhibition, is an APTT of 46-80 seconds. C-Reactive Proteinon CRP [Mass/Vol] 10.2 mg/L High 0.0-6.0 [facility] Comment on above: Result Comment: . Performed By: #### H EMOG, CMP3M, CRP2, LDH3, FIBGN, DDI2, APTT, FERR3 #### [facility] [address] [place] [address] CRP [Mass/Vol] 10.2 mg/L High 0 - 6 mg/L [place] Comment on above: . CBCon 11-02-2020 Erythrocyte distribution width (RBC) [Ratio] 14.2 % 11.5 - 14.5 % [place] Hematocrit (Bld) [Volume fraction] 39.5 % Low 40 - 52 % [place] Hemoglobin (Bld) [Mass/Vol] 13.2 g/dL 13 - 18 g/dL [place] Interpretation and review of laboratory results Abnormal [place] MCH (RBC) [Entitic mass] 29.4 pg 26 - 34 pg [place] MCHC (RBC) [Mass/Vol] 33.5 % 32 - 36 % [place] MCV (RBC) [Entitic vol] 87.8 fL 80 - 98 fL [place] Platelet mean volume (Bld) [Entitic vol] 7.6 fL 7.4 - 10.4 fL [place] Platelets (Bld) [#/Vol] 340 10*3/uL 140 - 440 10*3/uL [place] RBC (Bld) [#/Vol] 4.49 10*6/uL 4.4 - 5.9 10*6/uL [place] WBC (Bld) [#/Vol] 13.0 10*3/uL High 3.6 - 10.7 10*3/uL [place] Test Performed by [facility], [address] [place] [address] [place] Comp Panel with Mg Reflexon 11-02-2020 ALT [Catalytic activity/Vol] 198 U/L High 0-49 [facility] Comment on above: Result Comment: The ALT test is performed by an updated assay method. Please note that the reference intervals have been changed and are now sex specific. Performed By: #### H EMOG, CMP3M, CRP2, LDH3, FIBGN, DDI2, APTT, FERR3 #### [facility] [address] [place] [address] Calcium [Mass/Vol] 8.8 mg/dL Normal 8.4-10.4 [facility] Comment on above: Performed By: #### H EMOG, CMP3M, CRP2, LDH3, FIBGN, DDI2, APTT, FERR3 #### [facility] [address] [place] [address] Glucose [Mass/Vol] 135 mg/dL High 70-100 [facility] Comment on above: Performed By: #### H EMOG, CMP3M, CRP2, LDH3, FIBGN, DDI2, APTT, FERR3 #### [facility] [address] [place] [address] ALP [Catalytic activity/Vol] 85 U/L Normal 38-126 [facility] Comment on above: Performed By: #### H EMOG, CMP3M, CRP2, LDH3, FIBGN, DDI2, APTT, FERR3 #### [facility] [address] [place] [address] Anion gap [Moles/Vol] 9 Normal [facility] Comment on above: Performed By: #### H EMOG, CMP3M, CRP2, LDH3, FIBGN, DDI2, APTT, FERR3 #### [facility] [address] [place] [address] AST [Catalytic activity/Vol] 104 U/L High 15-46 [facility] Comment on above: Performed By: #### H EMOG, CMP3M, CRP2, LDH3, FIBGN, DDI2, APTT, FERR3 #### [facility] [address] [place] [address] Bilirubin [Mass/Vol] 0.7 mg/dL Normal 0.2-1.3 [facility] Comment on above: Performed By: #### H EMOG, CMP3M, CRP2, LDH3, FIBGN, DDI2, APTT, FERR3 #### [facility] [address] [place] [address] CO2 [Moles/Vol] 18 mmol/L Low 22-30 [facility] Comment on above: Performed By: #### H EMOG, CMP3M, CRP2, LDH3, FIBGN, DDI2, APTT, FERR3 #### [facility] [address] [place] [address] Creatinine [Mass/Vol] 1.89 mg/dL High 0.52-1.25 [facility] Comment on above: Performed By: #### H EMOG, CMP3M, CRP2, LDH3, FIBGN, DDI2, APTT, FERR3 #### [facility] [address] [place] [address] GFR/1.73 sq M predicted among blacks MDRD (S/P/Bld) [Vol rate/Area] 44.5 mL/min/{1.73_m2} Abnormal >60 [facility] Comment on above: Performed By: #### H EMOG, CMP3M, CRP2, LDH3, FIBGN, DDI2, APTT, FERR3 #### [facility] [address] [place] [address] GFR/1.73 sq M predicted among non-blacks MDRD (S/P/Bld) [Vol rate/Area] 38.4 mL/min/{1.73_m2} Abnormal >60 [facility] Comment on above: Result Comment: KDIG O guidelines provide the following GFR categories: Stage GFR(ml/min/1.73 m2) Terms G1 >=90 Normal or high G2 60-89 Mildly decreased* G3a 45-59 Mildly to moderately decreased G3b 30-44 Moderately to severely decreased G4 15-29 Severely decreased G5 <15 Kidney failure *Relative to young adult level. In the absence of evidence of kidney damage, neither GFR category G1 nor G2 fulfill the criteria for CKD. The CKD-EPI equation is validated in individuals 18 years of age and older. Currently the best equation for estimating glomerular filtration rate (GFR) from serum creatinine in children is the Bedside Garcia equation. It is less accurate in patients with extremes of muscle mass, restriction of dietary protein, ingestion of creatine, extra-renal metabolism of creatinine, or treatment with medications that affect renal tubular creatinine secretion. Performed By: #### H EMOG, CMP3M, CRP2, LDH3, FIBGN, DDI2, APTT, FERR3 #### [facility] [address] [place] [address] Protein [Mass/Vol] 6.1 g/dL Low 6.3-8.2 [facility] Comment on above: Performed By: #### H EMOG, CMP3M, CRP2, LDH3, FIBGN, DDI2, APTT, FERR3 #### [facility] [address] [place] [address] Urea nitrogen [Mass/Vol] 35 mg/dL High 7-20 [facility] Comment on above: Performed By: #### H EMOG, CMP3M, CRP2, LDH3, FIBGN, DDI2, APTT, FERR3 #### [facility] [address] [place] [address] Potassium [Moles/Vol] 4.3 mmol/L Normal 3.5-5.1 [facility] Comment on above: Performed By: #### H EMOG, CMP3M, CRP2, LDH3, FIBGN, DDI2, APTT, FERR3 #### [facility] [address] [place] [address] Albumin [Mass/Vol] 3.3 g/dL Low 3.5-5.0 [facility] Comment on above: Performed By: #### H EMOG, CMP3M, CRP2, LDH3, FIBGN, DDI2, APTT, FERR3 #### [facility] [address] [place] [address] Chloride [Moles/Vol] 110 mmol/L High 98-107 [facility] Comment on above: Performed By: #### H EMOG, CMP3M, CRP2, LDH3, FIBGN, DDI2, APTT, FERR3 #### [facility] [address] [place] [address] Sodium [Moles/Vol] 137 mmol/L Normal 135-145 [facility] Comment on above: Performed By: #### H EMOG, CMP3M, CRP2, LDH3, FIBGN, DDI2, APTT, FERR3 #### [facility] [address] [place] [address] Comprehensive Metabolic Pane l w/ Reflex to MGon 11-02-2020 Albumin [Mass/Vol] 3.3 g/dL Low 3.5 - 5 g/dL [place] ALP [Catalytic activity/Vol] 85 U/L 38 - 126 U/L [place] ALT [Catalytic activity/Vol] 198 U/L High 0 - 49 U/L [place] Comment on above: The ALT test is perf ormed by an updated assay method. Please note that the reference intervals have been changed and are now sex specific. Anion gap [Moles/Vol] 9 mmol/L [place] AST [Catalytic activity/Vol] 104 U/L High 15 - 46 U/L [place] Bilirubin Ql (U) 0.7 mg/dL 0.2 - 1.3 mg/dL [place] Calcium [Mass/Vol] 8.8 mg/dL 8.4 - 10. 4 mg/dL [place] Chloride [Moles/Vol] 110 mmol/L High 98 - 10 7 mmol/L [place] CO2 [Moles/Vol] 18 mmol/L Low 22 - 30 mmol/L [place] Creatinine [Mass/Vol] 1.89 mg/dL High 0.52 - 1.25 mg/dL [place] EGFR IF NonAfrican Prydeinig 38.4 mL/min Abnormal >60 [place] Comment on above: KDIGO guidelines pro vide the following GFR categories: Stage GFR(ml/min/1.73 m2) Terms G1 >=90 Normal or high G2 60-89 Mildly decreased* G3a 45-59 Mildly to moderately decreased G3b 30-44 Moderately to severely decreased G4 15-29 Severely decreased G5 <15 Kidney failure *Relative to young adult level. In the absence of evidence of kidney damage, neither GFR category G1 nor G2 fulfill the criteria for CKD. The CKD-EPI equation is validated in individuals 18 years of age and older. Currently the best equation for estimating glomerular filtration rate (GFR) from serum creatinine in children is the Bedside Garcia equation. It is less accurate in patients with extremes of muscle mass, restriction of dietary protein, ingestion of creatine, extra-renal metabolism of creatinine, or treatment with medications that affect renal tubular creatinine secretion. GFR/1.73 sq M predicted among blacks MDRD (S/P/Bld) [Vol rate/Area] 44.5 mL/min/{1.73_m2} Abnormal >60 [facility] [place] Glucose [Mass/Vol] 135 mg/dL High 70 - 100 mg/dL [facility] Potassium [Moles/Vol] 4.3 mmol/L 3.5 - 5.1 mmol/L [facility] [place] Protein [Mass/Vol] 6.1 g/dL Low 6.3 - 8.2 g/dL [facility] [place] Sodium [Moles/Vol] 137 mmol/L 135 - 145 mmol/L [facility] Urea nitrogen [Mass/Vol] 35 mg/dL High 7 - 20 mg/dL [facility] [place] D-Dimer, Innovanceon 20-2 020 D-Dimer, Innovance 0.83 mg/L High 0.00-0.50 [facility] [employer] [facility] Comment on above: Result Comment: Inno quach D-Dimer values of <0.50 mg/L FEU can be used in combination with a pre-test probability model (e.g. Well's) to exclude pulmonary embolism (PE) disease, as well as an aid in the diagnosis of deep vein thrombosis (DVT). Performed By: #### H EMOG, CMP3M, CRP2, LDH3, FIBGN, DDI2, APTT, FERR3 #### [facility] [address] [place] [address] D-Dimer, Quantitativeon 12-2 0-2020 D-Dimer, Quant 0.83 mg/L High 0 - 0.5 mg/L [place] Comment on above: [employer] D-Dimer va lues of <0.50 mg/L FEU can be used in combination with a pre-test probability model (e.g. Well's) to exclude pulmonary embolism (PE) disease, as well as an aid in the diagnosis of deep vein thrombosis (DVT). Interpretation and review of laboratory results Abnormal [place] Ferritinon 11-02-2020 Ferritin [Mass/Vol] 938 ng/mL High 18-464 [facility] Comment on above: Performed By: #### H EMOG, CMP3M, CRP2, LDH3, FIBGN, DDI2, APTT, FERR3 #### [facility] [address] [place] [address] Ferritin [Mass/Vol] 938 ng/mL High 18 - 464 ng/mL [place] Interpretation and review of laboratory results Abnormal [place] Test Performed by [facility], [address] [place] [address] [place] Fibrinogenon 11-02-2020 Fibrinogen 373 mg/dL Normal 200-400 [facility] Comment on above: Performed By: #### H EMOG, CMP3M, CRP2, LDH3, FIBGN, DDI2, APTT, FERR3 #### [facility] [address] [place] [address] Fibrinogen 373 mg/dL 200 - 400 mg/dL [place] Hemogramon 11-02-2020 Erythrocyte distribution width (RBC) [Ratio] 14.2 % Normal 11.5-14.5 [facility] Comment on above: Performed By: #### H EMOG, CMP3M, CRP2, LDH3, FIBGN, DDI2, APTT, FERR3 #### [facility] [address] [place] [address] Hematocrit (Bld) [Volume fraction] 39.5 % Low 40.0-52.0 [facility] Comment on above: Performed By: #### H EMOG, CMP3M, CRP2, LDH3, FIBGN, DDI2, APTT, FERR3 #### [facility] [address] [place] [address] Hemoglobin (Bld) [Mass/Vol] 13.2 g/dL Normal 13.0-18.0 [facility] Comment on above: Performed By: #### H EMOG, CMP3M, CRP2, LDH3, FIBGN, DDI2, APTT, FERR3 #### [facility] [address] [place] [address] MCH (RBC) [Entitic mass] 29.4 pg Normal 26.0-34.0 [facility] Comment on above: Performed By: #### H EMOG, CMP3M, CRP2, LDH3, FIBGN, DDI2, APTT, FERR3 #### [facility] [address] [place] [address] MCHC (RBC) [Mass/Vol] 33.5 % Normal 32.0-36.0 [facility] Comment on above: Performed By: #### H EMOG, CMP3M, CRP2, LDH3, FIBGN, DDI2, APTT, FERR3 #### [facility] [address] [place] [address] MCV (RBC) [Entitic vol] 87.8 fL Normal 80.0-98.0 [facility] Comment on above: Performed By: #### H EMOG, CMP3M, CRP2, LDH3, FIBGN, DDI2, APTT, FERR3 #### [facility] [address] [place] [address] Platelet mean volume (Bld) [Entitic vol] 7.6 fL Normal 7.4-10.4 [facility] Comment on above: Performed By: #### H EMOG, CMP3M, CRP2, LDH3, FIBGN, DDI2, APTT, FERR3 #### [facility] [address] [place] [address] Platelets (Bld) [#/Vol] 340 10*3/uL Normal 140-440 [facility] Comment on above: Performed By: #### H EMOG, CMP3M, CRP2, LDH3, FIBGN, DDI2, APTT, FERR3 #### [place] [address] [place] [address] RBC (Bld) [#/Vol] 4.49 10*6/uL Normal 4.40-5.90 [facility] Comment on above: Performed By: #### H EMOG, CMP3M, CRP2, LDH3, FIBGN, DDI2, APTT, FERR3 #### [facility] [address] [place] [address] WBC (Bld) [#/Vol] 13.0 10*3/uL High 3.6-10.7 [facility] Comment on above: Performed By: #### H EMOG, CMP3M, CRP2, LDH3, FIBGN, DDI2, APTT, FERR3 #### [facility] [address] [place] [address] LDHon 11-02-2020 LDH 589 U/L High 120-246 [facility] Comment on above: Performed By: #### H EMOG, CMP3M, CRP2, LDH3, FIBGN, DDI2, APTT, FERR3 #### [facility] [address] [place] [address] Lactate Dehydrogenaseon 10-15 LD 589 U/L High 120 - 246 U/L [place] Otheron 11-02-2020 Test Performed by [facility], [address] [place] [id number] [place] [address] Interpretation and review of laboratory results Abnormal [place] Test Performed by [facility], [facility] [address] [place] [id number] [place] [address] C-Reactive Proteinon 020 CRP [Mass/Vol] 14.1 mg/L High 0.0-6.0 [facility] Comment on above: Result Comment: . Performed By: #### H EMOG, CMP3M, CRP2, LDH3, FIBGN, DDI2, APTT, FERR3 #### [facility] [address] [place] [address] CRP [Mass/Vol] 14.1 mg/L High 0 - 6 mg/L [place] Comment on above: . Interpretation and review of laboratory results Abnormal [place] Test Performed by [facility], [address] [place] [address] [place] Comp Panel with Mg Reflexon 11-01-2020 ALT [Catalytic activity/Vol] 173 U/L High 0-49 [facility] Comment on above: Result Comment: The ALT test is performed by an updated assay method. Please note that the reference intervals have been changed and are now sex specific. Performed By: #### H EMOG, CMP3M, CRP2, LDH3, FIBGN, DDI2, APTT, FERR3 #### [facility] [address] [place] [address] Calcium [Mass/Vol] 8.7 mg/dL Normal 8.4-10.4 [facility] Comment on above: Performed By: #### H EMOG, CMP3M, CRP2, LDH3, FIBGN, DDI2, APTT, FERR3 #### [facility] [address] [place] [address] ALP [Catalytic activity/Vol] 77 U/L Normal 38-126 [facility] Comment on above: Performed By: #### H EMOG, CMP3M, CRP2, LDH3, FIBGN, DDI2, APTT, FERR3 #### [facility] [address] [place] [address] Anion gap [Moles/Vol] 7 Normal [facility] Comment on above: Performed By: #### H EMOG, CMP3M, CRP2, LDH3, FIBGN, DDI2, APTT, FERR3 #### [facility] [address] [place] [address] AST [Catalytic activity/Vol] 135 U/L High 15-46 [facility] Comment on above: Performed By: #### H EMOG, CMP3M, CRP2, LDH3, FIBGN, DDI2, APTT, FERR3 #### [facility] [address] [place] [address] Bilirubin [Mass/Vol] 0.5 mg/dL Normal 0.2-1.3 [facility] Comment on above: Performed By: #### H EMOG, CMP3M, CRP2, LDH3, FIBGN, DDI2, APTT, FERR3 #### [facility] [address] [place] [address] CO2 [Moles/Vol] 18 mmol/L Low 22-30 [facility] Comment on above: Performed By: #### H EMOG, CMP3M, CRP2, LDH3, FIBGN, DDI2, APTT, FERR3 #### [facility] [address] [place] [address] Creatinine [Mass/Vol] 1.77 mg/dL High 0.52-1.25 [facility] Comment on above: Performed By: #### H EMOG, CMP3M, CRP2, LDH3, FIBGN, DDI2, APTT, FERR3 #### [facility] [address] [place] [address] GFR/1.73 sq M predicted among blacks MDRD (S/P/Bld) [Vol rate/Area] 48.2 mL/min/{1.73_m2} Abnormal >60 [facility] Comment on above: Performed By: #### H EMOG, CMP3M, CRP2, LDH3, FIBGN, DDI2, APTT, FERR3 #### [facility] [address] [place] [address] GFR/1.73 sq M predicted among non-blacks MDRD (S/P/Bld) [Vol rate/Area] 41.6 mL/min/{1.73_m2} Abnormal >60 [facility] Comment on above: Result Comment: KDIG O guidelines provide the following GFR categories: Stage GFR(ml/min/1.73 m2) Terms G1 >=90 Normal or high G2 60-89 Mildly decreased* G3a 45-59 Mildly to moderately decreased G3b 30-44 Moderately to severely decreased G4 15-29 Severely decreased G5 <15 Kidney failure *Relative to young adult level. In the absence of evidence of kidney damage, neither GFR category G1 nor G2 fulfill the criteria for CKD. The CKD-EPI equation is validated in individuals 18 years of age and older. Currently the best equation for estimating glomerular filtration rate (GFR) from serum creatinine in children is the Bedside Garcia equation. It is less accurate in patients with extremes of muscle mass, restriction of dietary protein, ingestion of creatine, extra-renal metabolism of creatinine, or treatment with medications that affect renal tubular creatinine secretion. Performed By: #### H EMOG, CMP3M, CRP2, LDH3, FIBGN, DDI2, APTT, FERR3 #### [facility] [address] [place] [address] Glucose [Mass/Vol] 134 mg/dL High 70-100 [facility] Comment on above: Performed By: #### H EMOG, CMP3M, CRP2, LDH3, FIBGN, DDI2, APTT, FERR3 #### [facility] [address] [place] [address] Protein [Mass/Vol] 5.6 g/dL Low 6.3-8.2 [facility] Comment on above: Performed By: #### H EMOG, CMP3M, CRP2, LDH3, FIBGN, DDI2, APTT, FERR3 #### [facility] [address] [place] [address] Urea nitrogen [Mass/Vol] 32 mg/dL High 7-20 [facility] Comment on above: Performed By: #### H EMOG, CMP3M, CRP2, LDH3, FIBGN, DDI2, APTT, FERR3 #### [facility] [address] [place] [address] Potassium [Moles/Vol] 4.2 mmol/L Normal 3.5-5.1 [facility] Comment on above: Performed By: #### H EMOG, CMP3M, CRP2, LDH3, FIBGN, DDI2, APTT, FERR3 #### [facility] [address] [place] [address] Sodium [Moles/Vol] 137 mmol/L Normal 135-145 [facility] Comment on above: Performed By: #### H EMOG, CMP3M, CRP2, LDH3, FIBGN, DDI2, APTT, FERR3 #### [facility] [address] [place] [address] Albumin [Mass/Vol] 3.1 g/dL Low 3.5-5.0 [facility] Comment on above: Performed By: #### H EMOG, CMP3M, CRP2, LDH3, FIBGN, DDI2, APTT, FERR3 #### [facility] [address] [place] [address] Chloride [Moles/Vol] 113 mmol/L High 98-107 [facility] Comment on above: Performed By: #### H EMOG, CMP3M, CRP2, LDH3, FIBGN, DDI2, APTT, FERR3 #### [facility] [address] [place] [address] Comprehensive Metabolic Pane l w/ Reflex to MGon 11-01-2020 Albumin [Mass/Vol] 3.1 g/dL Low 3.5 - 5 g/dL [place] ALP [Catalytic activity/Vol] 77 U/L 38 - 126 U/L [place] ALT [Catalytic activity/Vol] 173 U/L High 0 - 49 U/L [place] Comment on above: The ALT test is perf ormed by an updated assay method. Please note that the reference intervals have been changed and are now sex specific. Anion gap [Moles/Vol] 7 mmol/L [place], [place] AST [Catalytic activity/Vol] 135 U/L High 15 - 46 U/L [place] Bilirubin Ql (U) 0.5 mg/dL 0.2 - 1.3 mg/dL [place] Calcium [Mass/Vol] 8.7 mg/dL 8.4 - 10. 4 mg/dL [place] Chloride [Moles/Vol] 113 mmol/L High 98 - 10 7 mmol/L [place] CO2 [Moles/Vol] 18 mmol/L Low 22 - 30 mmol/L [place] Creatinine [Mass/Vol] 1.77 mg/dL High 0.52 - 1.25 mg/dL [place] EGFR IF NonAfrican Prydeinig 41.6 mL/min Abnormal >60 [place] Comment on above: KDIGO guidelines pro vide the following GFR categories: Stage GFR(ml/min/1.73 m2) Terms G1 >=90 Normal or high G2 60-89 Mildly decreased* G3a 45-59 Mildly to moderately decreased G3b 30-44 Moderately to severely decreased G4 15-29 Severely decreased G5 <15 Kidney failure *Relative to young adult level. In the absence of evidence of kidney damage, neither GFR category G1 nor G2 fulfill the criteria for CKD. The CKD-EPI equation is validated in individuals 18 years of age and older. Currently the best equation for estimating glomerular filtration rate (GFR) from serum creatinine in children is the Bedside Garcia equation. It is less accurate in patients with extremes of muscle mass, restriction of dietary protein, ingestion of creatine, extra-renal metabolism of creatinine, or treatment with medications that affect renal tubular creatinine secretion. GFR/1.73 sq M predicted among blacks MDRD (S/P/Bld) [Vol rate/Area] 48.2 mL/min/{1.73_m2} Abnormal >60 [place] Glucose [Mass/Vol] 134 mg/dL High 70 - 100 mg/dL [place] Potassium [Moles/Vol] 4.2 mmol/L 3.5 - 5.1 mmol/L [place] Protein [Mass/Vol] 5.6 g/dL Low 6.3 - 8.2 g/dL [place] Sodium [Moles/Vol] 137 mmol/L 135 - 145 mmol/L [place] Urea nitrogen [Mass/Vol] 32 mg/dL High 7 - 20 mg/dL [place] D-Dimer, Innovanceon 11-01-2 020 D-Dimer, Innovance 0.87 mg/L High 0.00-0.50 [facility] [employer] [facility] Comment on above: Result Comment: Inno quach D-Dimer values of <0.50 mg/L FEU can be used in combination with a pre-test probability model (e.g. Well's) to exclude pulmonary embolism (PE) disease, as well as an aid in the diagnosis of deep vein thrombosis (DVT). Performed By: #### H EMOG, CMP3M, CRP2, LDH3, FIBGN, DDI2, APTT, FERR3 #### [employer] [address] [place] [address] D-Dimer, Quantitativeon 12- D-Dimer, Quant 0.87 mg/L High 0 - 0.5 mg/L [place] Comment on above: [employer] D-Dimer va lues of <0.50 mg/L FEU can be used in combination with a pre-test probability model (e.g. Well's) to exclude pulmonary embolism (PE) disease, as well as an aid in the diagnosis of deep vein thrombosis (DVT). EKG 12 Leadon 11-01-2020 [facility], [facility] Incoming Cardiology Results From [facility] - 11/01/2020 11:02 PM EST [facility] Test Date: 2020-10-31 Pat Name: Reggie León Department: Room: 468 Gender: Cirilo Qa Consultant: NYLA : 1965 Requested By: FARRUKH DIAZ Order Number: [id number] Reading MD: Usama Cedillo Measurements Intervals [place] Rate: 83 P: 21 WV: 192 QRS: -16 QRSD: 104 T: 28 QT: 404 QTc: 475 Interpretive Statements SINUS RHYTHM MULTIPLE VENTRICULAR PREMATURE COMPLEXES Electronically Signed On 11-01-2020 23:01:06 EST by [facility] Test Date: 2020-10-31 Pat Name: Reggie León Department: 09 Room: 468 Gender: M Qa Consultant: NYLA : 1965 Requested By: FARRUKH DIAZ Order Number: [id number] Reading MD: Usama Cedillo Measurements Intervals [place] Rate: 83 P: 21 WV: 192 QRS: -16 QRSD: 104 T: 28 QT: 404 QTc: 475 Interpretive Statements SINUS RHYTHM MULTIPLE VENTRICULAR PREMATURE COMPLEXES Electronically Signed On 11-01-2020 23:01:06 EST by [facility] Ferritinon 11-01-2020 Ferritin [Mass/Vol] 1020 ng/mL High 18-464 [facility] Comment on above: Performed By: #### H EMOG, CMP3M, CRP2, LDH3, FIBGN, DDI2, APTT, FERR3 #### [facility] [address] [place] [address] Ferritin [Mass/Vol] 1020 ng/mL High 18 - 464 ng/mL [facility] Interpretation and review of laboratory results Abnormal [facility] Test Performed by [facility], [address] [place] [address] [place] Fibrinogenon 11-01-2020 Fibrinogen 420 mg/dL High 200-400 [facility] Comment on above: Performed By: #### H EMOG, CMP3M, CRP2, LDH3, FIBGN, DDI2, APTT, FERR3 #### [facility] [address] [place] [address] Fibrinogen 420 mg/dL High 200 - 400 mg/dL [place] LDHon 11-01-2020 LDH 665 U/L High 120-246 [facility] Comment on above: Performed By: #### H EMOG, CMP3M, CRP2, LDH3, FIBGN, DDI2, APTT, FERR3 #### [facility] [address] [place] [address] Lactate Dehydrogenaseon 10-14 LD 665 U/L High 120 - 246 U/L [place] Otheron 11-01-2020 Interpretation and review of laboratory results Abnormal [place] Test Performed by [facility], [address] [place] [address] [place] Interpretation and review of laboratory results Abnormal [place] Test Performed by [facility], [address] [place] [address] [place] C-Reactive Proteinon 020 CRP [Mass/Vol] 19.2 mg/L High 0.0-6.0 [facility] Comment on above: Result Comment: . Performed By: #### H EMOG, CMP3M, CRP2, LDH3, FIBGN, DDI2, APTT, FERR3 #### [facility] [address] [place] [address] CRP [Mass/Vol] 19.2 mg/L High 0 - 6 mg/L [place] Comment on above: . CBCon 10-31-2020 Erythrocyte distribution width (RBC) [Ratio] 14.0 % 11.5 - 14.5 % [place] Hematocrit (Bld) [Volume fraction] 35.7 % Low 40 - 52 % [place] Hemoglobin (Bld) [Mass/Vol] 12.0 g/dL Low 13 - 18 g/dL [place] Interpretation and review of laboratory results Abnormal [place] MCH (RBC) [Entitic mass] 29.0 pg 26 - 34 pg [place] MCHC (RBC) [Mass/Vol] 33.7 % 32 - 36 % [place] MCV (RBC) [Entitic vol] 86.3 fL 80 - 98 fL [place] Platelet mean volume (Bld) [Entitic vol] 7.5 fL 7.4 - 10.4 fL [place] Platelets (Bld) [#/Vol] 294 10*3/uL 140 - 440 10*3/uL [place] RBC (Bld) [#/Vol] 4.14 10*6/uL Low 4.4 - 5.9 10*6/uL [place] WBC (Bld) [#/Vol] 9.5 10*3/uL 3.6 - 10.7 10*3/uL [place] Test Performed by [facility], [address], [place] [address] [place] Comp Panel with Mg Reflexon 10-31-2020 ALT [Catalytic activity/Vol] 79 U/L High 0-49 [facility] Comment on above: Result Comment: The ALT test is performed by an updated assay method. Please note that the reference intervals have been changed and are now sex specific. Performed By: #### H EMOG, CMP3M, CRP2, LDH3, FIBGN, DDI2, APTT, FERR3 #### [facility] [address] [place] [address] Calcium [Mass/Vol] 8.7 mg/dL Normal 8.4-10.4 [facility] Comment on above: Performed By: #### H EMOG, CMP3M, CRP2, LDH3, FIBGN, DDI2, APTT, FERR3 #### [facility] [address] [place] [address] Glucose [Mass/Vol] 139 mg/dL High 70-100 [facility] Comment on above: Performed By: #### H EMOG, CMP3M, CRP2, LDH3, FIBGN, DDI2, APTT, FERR3 #### [facility] [address] [place] [address] Urea nitrogen [Mass/Vol] 30 mg/dL High 7-20 [facility] Comment on above: Performed By: #### H EMOG, CMP3M, CRP2, LDH3, FIBGN, DDI2, APTT, FERR3 #### [facility] [address] [place] [address] ALP [Catalytic activity/Vol] 69 U/L Normal 38-126 [facility] Comment on above: Performed By: #### H EMOG, CMP3M, CRP2, LDH3, FIBGN, DDI2, APTT, FERR3 #### [facility] [address] [place] [address] Anion gap [Moles/Vol] 7 Normal [facility] Comment on above: Performed By: #### H EMOG, CMP3M, CRP2, LDH3, FIBGN, DDI2, APTT, FERR3 #### [facility] [address] [place] [address] AST [Catalytic activity/Vol] 67 U/L High 15-46 [facility] Comment on above: Performed By: #### H EMOG, CMP3M, CRP2, LDH3, FIBGN, DDI2, APTT, FERR3 #### [facility] [address] [place] [address] Bilirubin [Mass/Vol] 0.4 mg/dL Normal 0.2-1.3 [facility] Comment on above: Performed By: #### H EMOG, CMP3M, CRP2, LDH3, FIBGN, DDI2, APTT, FERR3 #### [facility] [address] [place] [address] CO2 [Moles/Vol] 17 mmol/L Low 22-30 [facility] Comment on above: Performed By: #### H EMOG, CMP3M, CRP2, LDH3, FIBGN, DDI2, APTT, FERR3 #### [facility] [address] [place] [address] Creatinine [Mass/Vol] 1.84 mg/dL High 0.52-1.25 [facility] Comment on above: Performed By: #### H EMOG, CMP3M, CRP2, LDH3, FIBGN, DDI2, APTT, FERR3 #### [facility] [address] [place] [address] GFR/1.73 sq M predicted among blacks MDRD (S/P/Bld) [Vol rate/Area] 46.0 mL/min/{1.73_m2} Abnormal >60 [facility] Comment on above: Performed By: #### H EMOG, CMP3M, CRP2, LDH3, FIBGN, DDI2, APTT, FERR3 #### [facility] [address] [place] [address] GFR/1.73 sq M predicted among non-blacks MDRD (S/P/Bld) [Vol rate/Area] 39.7 mL/min/{1.73_m2} Abnormal >60 [facility] Comment on above: Result Comment: KDIG O guidelines provide the following GFR categories: Stage GFR(ml/min/1.73 m2) Terms G1 >=90 Normal or high G2 60-89 Mildly decreased* G3a 45-59 Mildly to moderately decreased G3b 30-44 Moderately to severely decreased G4 15-29 Severely decreased G5 <15 Kidney failure *Relative to young adult level. In the absence of evidence of kidney damage, neither GFR category G1 nor G2 fulfill the criteria for CKD. The CKD-EPI equation is validated in individuals 18 years of age and older. Currently the best equation for estimating glomerular filtration rate (GFR) from serum creatinine in children is the Bedside Garcia equation. It is less accurate in patients with extremes of muscle mass, restriction of dietary protein, ingestion of creatine, extra-renal metabolism of creatinine, or treatment with medications that affect renal tubular creatinine secretion. Performed By: #### H EMOG, CMP3M, CRP2, LDH3, FIBGN, DDI2, APTT, FERR3 #### [facility] [address] [place] [address] Protein [Mass/Vol] 5.3 g/dL Low 6.3-8.2 [facility] Comment on above: Performed By: #### H EMOG, CMP3M, CRP2, LDH3, FIBGN, DDI2, APTT, FERR3 #### [facility] [address] [place] [address] Albumin [Mass/Vol] 2.8 g/dL Low 3.5-5.0 [facility] Comment on above: Performed By: #### H EMOG, CMP3M, CRP2, LDH3, FIBGN, DDI2, APTT, FERR3 #### [facility] [address] [place] [address] Chloride [Moles/Vol] 112 mmol/L High 98-107 [facility] Comment on above: Performed By: #### H EMOG, CMP3M, CRP2, LDH3, FIBGN, DDI2, APTT, FERR3 #### [facility] [address] [place] [address] Sodium [Moles/Vol] 136 mmol/L Normal 135-145 [facility] Comment on above: Performed By: #### H EMOG, CMP3M, CRP2, LDH3, FIBGN, DDI2, APTT, FERR3 #### [facility] [address] [place] [address] Potassium [Moles/Vol] 3.8 mmol/L Normal 3.5-5.1 [place] Comment on above: Performed By: #### H EMOG, CMP3M, CRP2, LDH3, FIBGN, DDI2, APTT, FERR3 #### [facility] [address] [place] [address] Comprehensive Metabolic Pane l w/ Reflex to MGon 10-31-2020 Albumin [Mass/Vol] 2.8 g/dL Low 3.5 - 5 g/dL [place] ALP [Catalytic activity/Vol] 69 U/L 38 - 126 U/L [place] ALT [Catalytic activity/Vol] 79 U/L High 0 - 49 U/L [place] Comment on above: The ALT test is perf ormed by an updated assay method. Please note that the reference intervals have been changed and are now sex specific. Anion gap [Moles/Vol] 7 mmol/L [place], [place] AST [Catalytic activity/Vol] 67 U/L High 15 - 46 U/L [place] Bilirubin Ql (U) 0.4 mg/dL 0.2 - 1.3 mg/dL [place] Calcium [Mass/Vol] 8.7 mg/dL 8.4 - 10. 4 mg/dL [place] Chloride [Moles/Vol] 112 mmol/L High 98 - 10 7 mmol/L [place] CO2 [Moles/Vol] 17 mmol/L Low 22 - 30 mmol/L [place] Creatinine [Mass/Vol] 1.84 mg/dL High 0.52 - 1.25 mg/dL [place] EGFR IF NonAfrican Prydeinig 39.7 mL/min Abnormal >60 [place] Comment on above: KDIGO guidelines pro vide the following GFR categories: Stage GFR(ml/min/1.73 m2) Terms G1 >=90 Normal or high G2 60-89 Mildly decreased* G3a 45-59 Mildly to moderately decreased G3b 30-44 Moderately to severely decreased G4 15-29 Severely decreased G5 <15 Kidney failure *Relative to young adult level. In the absence of evidence of kidney damage, neither GFR category G1 nor G2 fulfill the criteria for CKD. The CKD-EPI equation is validated in individuals 18 years of age and older. Currently the best equation for estimating glomerular filtration rate (GFR) from serum creatinine in children is the Bedside Garcia equation. It is less accurate in patients with extremes of muscle mass, restriction of dietary protein, ingestion of creatine, extra-renal metabolism of creatinine, or treatment with medications that affect renal tubular creatinine secretion. GFR/1.73 sq M predicted among blacks MDRD (S/P/Bld) [Vol rate/Area] 46.0 mL/min/{1.73_m2} Abnormal >60 [place] Glucose [Mass/Vol] 139 mg/dL High 70 - 100 mg/dL [place] Protein [Mass/Vol] 5.3 g/dL Low 6.3 - 8.2 g/dL [place] Sodium [Moles/Vol] 136 mmol/L 135 - 145 mmol/L [place] Urea nitrogen [Mass/Vol] 30 mg/dL High 7 - 20 mg/dL [place] D-Dimer, Innovanceon 020 D-Dimer, Innovance 0.96 mg/L High 0.00-0.50 [facility] Comment on above: Result Comment: Inno quach D-Dimer values of <0.50 mg/L FEU can be used in combination with a pre-test probability model (e.g. Well's) to exclude pulmonary embolism (PE) disease, as well as an aid in the diagnosis of deep vein thrombosis (DVT). Performed By: #### H EMOG, CMP3M, CRP2, LDH3, FIBGN, DDI2, APTT, FERR3 #### [facility] [address] [place] [address] D-Dimer, Quantitativeon 10-14 D-Dimer, Quant 0.96 mg/L High 0 - 0.5 mg/L [place] Comment on above: [employer] D-Dimer va lues of <0.50 mg/L FEU can be used in combination with a pre-test probability model (e.g. Well's) to exclude pulmonary embolism (PE) disease, as well as an aid in the diagnosis of deep vein thrombosis (DVT). Ferritinon 10-31-2020 Ferritin [Mass/Vol] 810 ng/mL High 18-464 [facility] Comment on above: Performed By: #### H EMOG, CMP3M, CRP2, LDH3, FIBGN, DDI2, APTT, FERR3 #### [facility] [address] [place] [address] Ferritin [Mass/Vol] 810 ng/mL High 18 - 464 ng/mL [place] Interpretation and review of laboratory results Abnormal [place] Test Performed by [facility], [address] [place], [place] [address] [place] Fibrinogenon 10-31-2020 Fibrinogen 455 mg/dL High 200-400 [facility] Comment on above: Performed By: #### H EMOG, CMP3M, CRP2, LDH3, FIBGN, DDI2, APTT, FERR3 #### [facility] [address] [place] [address] Fibrinogen 455 mg/dL High 200 - 400 mg/dL [facility] [place] Hemogramon 10-31-2020 Erythrocyte distribution width (RBC) [Ratio] 14.0 % Normal 11.5-14.5 [facility] Comment on above: Performed By: #### H EMOG, CMP3M, CRP2, LDH3, FIBGN, DDI2, APTT, FERR3 #### [facility] [address] [place] [address] Hematocrit (Bld) [Volume fraction] 35.7 % Low 40.0-52.0 [facility] Comment on above: Performed By: #### H EMOG, CMP3M, CRP2, LDH3, FIBGN, DDI2, APTT, FERR3 #### [facility] [address] [place] [address] Hemoglobin (Bld) [Mass/Vol] 12.0 g/dL Low 13.0-18.0 [facility] Comment on above: Performed By: #### H EMOG, CMP3M, CRP2, LDH3, FIBGN, DDI2, APTT, FERR3 #### [facility] [address] [place] [address] MCH (RBC) [Entitic mass] 29.0 pg Normal 26.0-34.0 [facility] Comment on above: Performed By: #### H EMOG, CMP3M, CRP2, LDH3, FIBGN, DDI2, APTT, FERR3 #### [facility] [address] [place] [address] MCHC (RBC) [Mass/Vol] 33.7 % Normal 32.0-36.0 [facility] Comment on above: Performed By: #### H EMOG, CMP3M, CRP2, LDH3, FIBGN, DDI2, APTT, FERR3 #### [facility] [facility] [address] [place] [address] MCV (RBC) [Entitic vol] 86.3 fL Normal 80.0-98.0 [facility] Comment on above: Performed By: #### H EMOG, CMP3M, CRP2, LDH3, FIBGN, DDI2, APTT, FERR3 #### [facility] [address] [place] [address] Platelet mean volume (Bld) [Entitic vol] 7.5 fL Normal 7.4-10.4 [facility] Comment on above: Performed By: #### H EMOG, CMP3M, CRP2, LDH3, FIBGN, DDI2, APTT, FERR3 #### [facility] [address] [place] [address] Platelets (Bld) [#/Vol] 294 10*3/uL Normal 140-440 [facility] Comment on above: Performed By: #### H EMOG, CMP3M, CRP2, LDH3, FIBGN, DDI2, APTT, FERR3 #### [facility] [address] [place] [address] RBC (Bld) [#/Vol] 4.14 10*6/uL Low 4.40-5.90 [facility] Comment on above: Performed By: #### H EMOG, CMP3M, CRP2, LDH3, FIBGN, DDI2, APTT, FERR3 #### [facility] [address] [place] [address] WBC (Bld) [#/Vol] 9.5 10*3/uL Normal 3.6-10.7 [facility] Comment on above: Performed By: #### H EMOG, CMP3M, CRP2, LDH3, FIBGN, DDI2, APTT, FERR3 #### [facility] [address] [place] [address] LDHon 10-31-2020 LDH 572 U/L High 120-246 [facility] Comment on above: Performed By: #### H EMOG, CMP3M, CRP2, LDH3, FIBGN, DDI2, APTT, FERR3 #### [facility] [address] [place] [address] Lactate Dehydrogenaseon 10-14 LD 572 U/L High 120 - 246 U/L [facility], [place] Otheron 10-31-2020 Interpretation and review of laboratory results Abnormal [place] Test Performed by [facility], [address] [place] [address] [place] Interpretation and review of laboratory results Abnormal [place] Test Performed by [facility], [address] [place] [address] [place] APTTon 10-30-2020 aPTT Coag (Bld) [Time] 47.0 s High 20.0-30.5 [facility] Comment on above: Result Comment: NOTE : The therapeutic time for Heparin anticoagulation, based on Xa activity inhibition, is an APTT of 46-80 seconds. Performed By: #### H EMOG, CMP3M, CRP2, LDH3, FIBGN, DDI2, APTT, FERR3 #### [facility] [address] [place] [address] aPTT Coag (Bld) [Time] 47 s High 20 - 30.5 s [place] Comment on above: NOTE: The therapeuti c time for Heparin anticoagulation, based on Xa activity inhibition, is an APTT of 46-80 seconds. C-Reactive Proteinon 020 CRP [Mass/Vol] 27.5 mg/L High 0.0-6.0 [facility] Comment on above: Result Comment: . Performed By: #### H EMOG, CMP3M, CRP2, LDH3, FIBGN, DDI2, APTT, FERR3 #### [facility] [address] [place] [address] CRP [Mass/Vol] 27.5 mg/L High 0 - 6 mg/L [place] Comment on above: . Comp Panel with Mg Reflexon 10-30-2020 ALT [Catalytic activity/Vol] 67 U/L High 0-49 [facility] Comment on above: Result Comment: The ALT test is performed by an updated assay method. Please note that the reference intervals have been changed and are now sex specific. Performed By: #### H EMOG, CMP3M, CRP2, LDH3, FIBGN, DDI2, APTT, FERR3 #### [facility] [address] [place] [address] Calcium [Mass/Vol] 8.6 mg/dL Normal 8.4-10.4 [facility] Comment on above: Performed By: #### H EMOG, CMP3M, CRP2, LDH3, FIBGN, DDI2, APTT, FERR3 #### [facility] [address] [place] [address] Glucose [Mass/Vol] 142 mg/dL High 70-100 [facility] Comment on above: Performed By: #### H EMOG, CMP3M, CRP2, LDH3, FIBGN, DDI2, APTT, FERR3 #### [facility] [address] [place] [address] Urea nitrogen [Mass/Vol] 30 mg/dL High 7-20 [facility] Comment on above: Performed By: #### H EMOG, CMP3M, CRP2, LDH3, FIBGN, DDI2, APTT, FERR3 #### [facility] [address] [place] [address] ALP [Catalytic activity/Vol] 75 U/L Normal 38-126 [facility] Comment on above: Performed By: #### H EMOG, CMP3M, CRP2, LDH3, FIBGN, DDI2, APTT, FERR3 #### [facility] [address] [place] [address] Anion gap [Moles/Vol] 8 Normal [facility] Comment on above: Performed By: #### H EMOG, CMP3M, CRP2, LDH3, FIBGN, DDI2, APTT, FERR3 #### [facility] [address] [place] [address] AST [Catalytic activity/Vol] 67 U/L High 15-46 [facility] Comment on above: Performed By: #### H EMOG, CMP3M, CRP2, LDH3, FIBGN, DDI2, APTT, FERR3 #### [facility] [address] [place] [address] Bilirubin [Mass/Vol] 0.3 mg/dL Normal 0.2-1.3 [facility] Comment on above: Performed By: #### H EMOG, CMP3M, CRP2, LDH3, FIBGN, DDI2, APTT, FERR3 #### [facility] [address] [place] [address] CO2 [Moles/Vol] 18 mmol/L Low 22-30 [facility] Comment on above: Performed By: #### H EMOG, CMP3M, CRP2, LDH3, FIBGN, DDI2, APTT, FERR3 #### [facility] [address] [place] [address] Creatinine [Mass/Vol] 2.01 mg/dL High 0.52-1.25 [facility] Comment on above: Performed By: #### H EMOG, CMP3M, CRP2, LDH3, FIBGN, DDI2, APTT, FERR3 #### [facility] [address] [place] [address] GFR/1.73 sq M predicted among blacks MDRD (S/P/Bld) [Vol rate/Area] 41.3 mL/min/{1.73_m2} Abnormal >60 [facility] Comment on above: Performed By: #### H EMOG, CMP3M, CRP2, LDH3, FIBGN, DDI2, APTT, FERR3 #### [facility] [address] [place] [address] GFR/1.73 sq M predicted among non-blacks MDRD (S/P/Bld) [Vol rate/Area] 35.6 mL/min/{1.73_m2} Abnormal >60 [facility] Comment on above: Result Comment: KDIG O guidelines provide the following GFR categories: Stage GFR(ml/min/1.73 m2) Terms G1 >=90 Normal or high G2 60-89 Mildly decreased* G3a 45-59 Mildly to moderately decreased G3b 30-44 Moderately to severely decreased G4 15-29 Severely decreased G5 <15 Kidney failure *Relative to young adult level. In the absence of evidence of kidney damage, neither GFR category G1 nor G2 fulfill the criteria for CKD. The CKD-EPI equation is validated in individuals 18 years of age and older. Currently the best equation for estimating glomerular filtration rate (GFR) from serum creatinine in children is the Bedside Garcia equation. It is less accurate in patients with extremes of muscle mass, restriction of dietary protein, ingestion of creatine, extra-renal metabolism of creatinine, or treatment with medications that affect renal tubular creatinine secretion. Performed By: #### H EMOG, CMP3M, CRP2, LDH3, FIBGN, DDI2, APTT, FERR3 #### [facility] [address] [place] [address] Protein [Mass/Vol] 5.7 g/dL Low 6.3-8.2 [facility] Comment on above: Performed By: #### H EMOG, CMP3M, CRP2, LDH3, FIBGN, DDI2, APTT, FERR3 #### [facility] [address] [place] [address] Potassium [Moles/Vol] 4.0 mmol/L Normal 3.5-5.1 [facility] Comment on above: Performed By: #### H EMOG, CMP3M, CRP2, LDH3, FIBGN, DDI2, APTT, FERR3 #### [facility] [address] [place] [address] Albumin [Mass/Vol] 2.9 g/dL Low 3.5-5.0 [facility] Comment on above: Performed By: #### H EMOG, CMP3M, CRP2, LDH3, FIBGN, DDI2, APTT, FERR3 #### [facility] [address] [place] [address] Chloride [Moles/Vol] 114 mmol/L High 98-107 [facility] Comment on above: Performed By: #### H EMOG, CMP3M, CRP2, LDH3, FIBGN, DDI2, APTT, FERR3 #### [facility] [address] [place] [address] Sodium [Moles/Vol] 140 mmol/L Normal 135-145 [facility] Comment on above: Performed By: #### H EMOG, CMP3M, CRP2, LDH3, FIBGN, DDI2, APTT, FERR3 #### [facility] [address] [place] [address] Comprehensive Metabolic Pane l w/ Reflex to MGon 10-30-2020 Albumin [Mass/Vol] 2.9 g/dL Low 3.5 - 5 g/dL [facility], [place] ALP [Catalytic activity/Vol] 75 U/L 38 - 126 U/L [place] ALT [Catalytic activity/Vol] 67 U/L High 0 - 49 U/L [place] Comment on above: The ALT test is perf ormed by an updated assay method. Please note that the reference intervals have been changed and are now sex specific. Anion gap [Moles/Vol] 8 mmol/L [place], [place] AST [Catalytic activity/Vol] 67 U/L High 15 - 46 U/L [place] Bilirubin Ql (U) 0.3 mg/dL 0.2 - 1.3 mg/dL [place] Calcium [Mass/Vol] 8.6 mg/dL 8.4 - 10. 4 mg/dL [place] Chloride [Moles/Vol] 114 mmol/L High 98 - 10 7 mmol/L [place] CO2 [Moles/Vol] 18 mmol/L Low 22 - 30 mmol/L [place] Creatinine [Mass/Vol] 2.01 mg/dL High 0.52 - 1.25 mg/dL [place] EGFR IF NonAfrican Prydeinig 35.6 mL/min Abnormal >60 [place] Comment on above: KDIGO guidelines pro vide the following GFR categories: Stage GFR(ml/min/1.73 m2) Terms G1 >=90 Normal or high G2 60-89 Mildly decreased* G3a 45-59 Mildly to moderately decreased G3b 30-44 Moderately to severely decreased G4 15-29 Severely decreased G5 <15 Kidney failure *Relative to young adult level. In the absence of evidence of kidney damage, neither GFR category G1 nor G2 fulfill the criteria for CKD. The CKD-EPI equation is validated in individuals 18 years of age and older. Currently the best equation for estimating glomerular filtration rate (GFR) from serum creatinine in children is the Bedside Garcia equation. It is less accurate in patients with extremes of muscle mass, restriction of dietary protein, ingestion of creatine, extra-renal metabolism of creatinine, or treatment with medications that affect renal tubular creatinine secretion. GFR/1.73 sq M predicted among blacks MDRD (S/P/Bld) [Vol rate/Area] 41.3 mL/min/{1.73_m2} Abnormal >60 [place] Glucose [Mass/Vol] 142 mg/dL High 70 - 100 mg/dL [place] Potassium [Moles/Vol] 4.0 mmol/L 3.5 - 5.1 mmol/L [place] Protein [Mass/Vol] 5.7 g/dL Low 6.3 - 8.2 g/dL [place] Sodium [Moles/Vol] 140 mmol/L 135 - 145 mmol/L [place] Urea nitrogen [Mass/Vol] 30 mg/dL High 7 - 20 mg/dL [place] D-Dimer, Innovanceon 020 D-Dimer, Innovance 0.89 mg/L High 0.00-0.50 [facility] Comment on above: Result Comment: Inno quach D-Dimer values of <0.50 mg/L FEU can be used in combination with a pre-test probability model (e.g. Well's) to exclude pulmonary embolism (PE) disease, as well as an aid in the diagnosis of deep vein thrombosis (DVT). Performed By: #### H EMOG, CMP3M, CRP2, LDH3, FIBGN, DDI2, APTT, FERR3 #### [facility] [employer] [facility] [address] [place] [address] D-Dimer, Quantitativeon 10-14 D-Dimer, Quant 0.89 mg/L High 0 - 0.5 mg/L [place] Comment on above: [employer] D-Dimer va lues of <0.50 mg/L FEU can be used in combination with a pre-test probability model (e.g. Well's) to exclude pulmonary embolism (PE) disease, as well as an aid in the diagnosis of deep vein thrombosis (DVT). Ferritinon 10-30-2020 Ferritin [Mass/Vol] 885 ng/mL High 18-464 [facility] Comment on above: Performed By: #### H EMOG, CMP3M, CRP2, LDH3, FIBGN, DDI2, APTT, FERR3 #### [employer] [facility] [address] [place] [address] Ferritin [Mass/Vol] 885 ng/mL High 18 - 464 ng/mL [place] Interpretation and review of laboratory results Abnormal [place] Test Performed by [facility], [address] [place] [address] [place] Fibrinogenon 10-30-2020 Fibrinogen 456 mg/dL High 200-400 [facility] Comment on above: Performed By: #### H EMOG, CMP3M, CRP2, LDH3, FIBGN, DDI2, APTT, FERR3 #### [facility] [address] [place] [address] Fibrinogen 456 mg/dL High 200 - 400 mg/dL [place] LDHon 10-30-2020 LDH 613 U/L High 120-246 [facility] Comment on above: Performed By: #### H EMOG, CMP3M, CRP2, LDH3, FIBGN, DDI2, APTT, FERR3 #### [facility] [address] [place] [address] Lactate Dehydrogenaseon 10-14 LD 613 U/L High 120 - 246 U/L [place] Otheron 10-30-2020 Interpretation and review of laboratory results Abnormal [place] Test Performed by [facility], [address] [place] [address] [place] Interpretation and review of laboratory results Abnormal [place] Test Performed by [facility], [address] [place] [address] [place] APTTon 10-29-2020 aPTT Coag (Bld) [Time] 35.1 s High 20.0-30.5 [facility] Comment on above: Result Comment: NOTE : The therapeutic time for Heparin anticoagulation, based on Xa activity inhibition, is an APTT of 46-80 seconds. Performed By: #### H EMOG, CMP3M, CRP2, LDH3, FIBGN, DDI2, APTT, FERR3 #### [facility] [address] [place] [address] aPTT Coag (Bld) [Time] 35.1 s High 20 - 30.5 s [place] Comment on above: NOTE: The therapeuti c time for Heparin anticoagulation, based on Xa activity inhibition, is an APTT of 46-80 seconds. C-Reactive Proteinon 020 CRP [Mass/Vol] 34.9 mg/L High 0.0-6.0 [facility] Comment on above: Result Comment: . Performed By: #### H EMOG, CMP3M, CRP2, LDH3, FIBGN, DDI2, APTT, FERR3 #### [facility] [address] [place] [address] CRP [Mass/Vol] 34.9 mg/L High 0 - 6 mg/L [place] Comment on above: . CBCon 10-29-2020 Erythrocyte distribution width (RBC) [Ratio] 14.2 % 11.5 - 14.5 % [place] Hematocrit (Bld) [Volume fraction] 37.3 % Low 40 - 52 % [place] Hemoglobin (Bld) [Mass/Vol] 12.6 g/dL Low 13 - 18 g/dL [place] Interpretation and review of laboratory results Abnormal [place] MCH (RBC) [Entitic mass] 29.2 pg 26 - 34 pg [place] MCHC (RBC) [Mass/Vol] 33.7 % 32 - 36 % [place] MCV (RBC) [Entitic vol] 86.7 fL 80 - 98 fL [place], [place] Platelet mean volume (Bld) [Entitic vol] 7.6 fL 7.4 - 10.4 fL [place] Platelets (Bld) [#/Vol] 255 10*3/uL 140 - 440 10*3/uL [place] RBC (Bld) [#/Vol] 4.30 10*6/uL Low 4.4 - 5.9 10*6/uL [place] WBC (Bld) [#/Vol] 7.8 10*3/uL 3.6 - 10.7 10*3/uL [place] Test Performed by [facility], [address], [place], [place] [address] [place] CBC auto differentialon 10-14 Absolute Baso # 0.0 10*3/uL 0 - 0.2 10*3/uL [place] Absolute Neut # 3.5 10*3/uL 1.8 - 7 10*3/uL [place] Basophils/100 WBC (Bld) 0.3 % 0 - 2 % [place] Eosinophils (Bld) [#/Vol] 0.0 10*3/uL 0 - 0.5 10*3/uL [place] Eosinophils/100 WBC (Bld) 0.0 % Low 1 - 6 % [place] Erythrocyte distribution width (RBC) [Ratio] 13.8 % 11.5 - 14.5 % [place] Granulocytes/100 WBC (Bld) 79.4 % 40 - 80 % [place] Hematocrit (Bld) [Volume fraction] 36.7 % Low 40 - 52 % [place] Hemoglobin (Bld) [Mass/Vol] 12.2 g/dL Low 13 - 18 g/dL [place] Interpretation and review of laboratory results Abnormal [place] Lymphocytes (Bld) [#/Vol] 0.4 10*3/uL Low 1 - 4.3 10*3/uL [place] Lymphocytes/100 WBC (Bld) 8.8 % Low 20 - 40 % [place] MCH (RBC) [Entitic mass] 29.1 pg 26 - 34 pg [place] MCHC (RBC) [Mass/Vol] 33.1 % 32 - 36 % [place] MCV (RBC) [Entitic vol] 87.8 fL 80 - 98 fL [place] Monocytes (Bld) [#/Vol] 0.5 10*3/uL 0 - 0.8 10*3/uL [place] Monocytes/100 WBC (Bld) 11.5 % High 2 - 10 % [place] Platelet mean volume (Bld) [Entitic vol] 7.9 fL 7.4 - 10.4 fL [place] Platelets (Bld) [#/Vol] 231 10*3/uL 140 - 440 10*3/uL [place] RBC (Bld) [#/Vol] 4.19 10*6/uL Low 4.4 - 5.9 10*6/uL [place] WBC (Bld) [#/Vol] 4.4 10*3/uL 3.6 - 10.7 10*3/uL [place] Test Performed by [facility], [address], [place], [place] [address] [place] COVID and Resp PCR Panelon 1 12-30-2019 COVID and Resp PCR Panel COVID and Resp PCR Panel --> Status: F NEGATIVE: No targets were detected by the [facility] Upper Respiratory Pathogens PCR Panel. _ Expected Result: Not Detected The [facility] Upper Respiratory Pathogens PCR Panel can detect the following targets: SARS-CoV-2, Adenovirus, Coronavirus 229E, Coronavirus HKU1, Coronavirus NL63, Coronavirus OC43, Human Metapneumovirus, Human Rhinovirus/Enterovirus, Influenza A, Influenza B, Parainfluenza Virus 1, Parainfluenza Virus 2, Parainfluenza Virus 3, Parainfluenza Virus 4, Respiratory Syncytial Virus, Bordetella pertussis, Bordetella parapertussis, Chlamydia pneumoniae, Mycoplasma pneumoniae. Negative results do not preclude SARS-CoV-2 infection and should not be used as the sole basis for treatment or other patient management decisions. This assay was developed by [employer] and distributed under an Emergency Use Authorization (EUA) granted by the FDA for the qualitative detection of SARS-CoV-2 nucleic acid. Provider and patient fact sheets can be found at https://www.fda.gov/media/ 979978/download and https://www.fda.gov/media/ 790680/download. Respiratory Pathogens PCR Panel. _ Expected Result: Not Detected The [facility] Upper Respiratory Pathogens PCR Panel can detect the following targets: SARS-CoV-2, Adenovirus, Coronavirus 229E, Coronavirus HKU1, Coronavirus NL63, Coronavirus OC43, Human Metapneumovirus, Human Rhinovirus/Enterovirus, Influenza A, Influenza B, Parainfluenza Virus 1, Parainfluenza Virus 2, Parainfluenza Virus 3, Parainfluenza Virus 4, Respiratory Syncytial Virus, Bordetella pertussis, Bordetella parapertussis, Chlamydia pneumoniae, Mycoplasma pneumoniae. Negative results do not preclude SARS-CoV-2 infection and should not be used as the sole basis for treatment or other patient management decisions. This assay was developed by [employer] and distributed under an Emergency Use Authorization (EUA) granted by the FDA for the qualitative detection of SARS-CoV-2 nucleic acid. Provider and patient fact sheets can be found at https://www.fda.gov/media/ 706318/download and https://www.fda.gov/media/ 656689/download. Normal [facility] Comment on above: Performed By: #### H EMOG, CMP3M, CRP2, LDH3, FIBGN, DDI2, APTT, FERR3 #### [facility] [address] 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 Report Reasons for examination: Hypoxia, elevated d-dimer, Covid 19. CT scan of the chest were performed with bolus contrast and high resolution scans for CT pulmonary angiographic study, with images post-processed by myself on [employer] workstation, with 3D - volume rendered CT and MPR angiographic images reconstructed. The heart size is normal, and there are no pericardial effusions. There are no congestive changes in the pulmonary vasculature. The thoracic aorta is unremarkable. CT pulmonary angiographic examination is a high quality study, which demonstrates no evidence of acute pulmonary embolism. The right side of the heart, pulmonary outflow tract, right and left main, lobar, and larger segmental pulmonary arteries all appear clear. Note that the technique is limited for detection of small, subsegmental, peripheral emboli, but none are seen. IMPRESSION: 1.Negative CT scan of the chest for evidence of acute pulmonary embolism. 2. Extensive bilateral mainly ground glass infiltrates compatible with the patient's clinical diagnosis of Covid 19 pneumonia with trace amount of bilateral pleural fluid right greater than left Report Dictated on Workstation: [id number] --- Final --- Dictating Physician: MD HARRISON WILLIAM Signed Date and Time: 10/29/2020 4:50 pm Signed by: MD HARRISON WILLIAM Transcribed Date and Time: 10/29/2020 4:51 [place], [facility] Incoming Radiology Results From [facility] - 10/29/2020 4:51 PM EST Patient Name: REGGIE LEÓN Computed Tomography ACCESSION EXAM DATE/TIME PROCEDURE ORDERING PROVIDER [id number] 10/29/2020 16:29 EST CTA Chest w/ + w/o MD EMILY, FARRUKH MCCORMICK Contrast CPT code 42376 Q9967 Reason For Exam (CTA Chest w/ + w/o Contrast) Hypoxia and elevated D-dimer, possible COVID+ and PE? Report Reasons for examination: Hypoxia, elevated d-dimer, Covid 19. CT scan of the chest were performed with bolus contrast and high resolution scans for CT pulmonary angiographic study, with images post-processed by myself on [employer] workstation, with 3D - volume rendered CT and MPR angiographic images reconstructed. The heart size is normal, and there are no pericardial effusions. There are no congestive changes in the pulmonary vasculature. The thoracic aorta is unremarkable. CT pulmonary angiographic examination is a high quality study, which demonstrates no evidence of acute pulmonary embolism. The right side of the heart, pulmonary outflow tract, right and left main, lobar, and larger segmental pulmonary arteries all appear clear. Note that the technique is limited for detection of small, subsegmental, peripheral emboli, but none are seen. IMPRESSION: 1.Negative CT scan of the chest for evidence of acute pulmonary embolism. 2. Extensive bilateral mainly ground glass infiltrates compatible with the patient's clinical diagnosis of Covid 19 pneumonia with trace amount of bilateral pleural fluid right greater than left Report Dictated on Workstation: [id number] --- Final --- Dictating Physician: MD HARRISON WILLIAM Signed Date and Time: 10/29/2020 4:50 pm Signed by: MD HARRISON WILLIAM Transcribed Date and Time: 10/29/2020 4:51 [place] CTA Chest w/ + w/o Contrasto n 10-29-2020 CTA Chest w/ + w/o Contrast Patient Name: REGGIE LEÓN Computed Tomography ACCESSION EXAM DATE/TIME PROCEDURE ORDERING PROVIDER [id number] 10/29/2020 16:29 EST CTA Chest w/ + w/o MD EMILY, FARRUKH MCCORMICK Contrast CPT code 61923 Q9967 Reason For Exam (CTA Chest w/ + w/o Contrast) Hypoxia and elevated D-dimer, possible COVID+ and PE? Report Reasons for examination: Hypoxia, elevated d-dimer, Covid 19. CT scan of the chest were performed with bolus contrast and high resolution scans for CT pulmonary angiographic study, with images post-processed by myself on [employer] workstation, with 3D - volume rendered CT and MPR angiographic images reconstructed. The heart size is normal, and there are no pericardial effusions. There are no congestive changes in the pulmonary vasculature. The thoracic aorta is unremarkable. CT pulmonary angiographic examination is a high quality study, which demonstrates no evidence of acute pulmonary embolism. The right side of the heart, pulmonary outflow tract, right and left main, lobar, and larger segmental pulmonary arteries all appear clear. Note that the technique is limited for detection of small, subsegmental, peripheral emboli, but none are seen. IMPRESSION: 1.Negative CT scan of the chest for evidence of acute pulmonary embolism. 2. Extensive bilateral mainly ground glass infiltrates compatible with the patient's clinical diagnosis of Covid 19 pneumonia with trace amount of bilateral pleural fluid right greater than left Report Dictated on Workstation: [id number] Final Dictating Physician: MD HARRISON WILLIAM Signed Date and Time: 10/29/2020 4:50 pm Signed by: MD HARRISON WILLIAM Transcribed Date and Time: 10/29/2020 4:51 Normal [facility] Comp Panel with Mg Reflexon 10-29-2020 ALP [Catalytic activity/Vol] 71 U/L Normal 38-126 [facility] Comment on above: Performed By: #### H EMOG, CMP3M, CRP2, LDH3, FIBGN, DDI2, APTT, FERR3 #### [facility] [address] [place] [address] ALT [Catalytic activity/Vol] 67 U/L High 0-49 [facility] Comment on above: Result Comment: The ALT test is performed by an updated assay method. Please note that the reference intervals have been changed and are now sex specific. Performed By: #### H EMOG, CMP3M, CRP2, LDH3, FIBGN, DDI2, APTT, FERR3 #### [facility] [address] [place] [address] Anion gap [Moles/Vol] 7 Normal [facility] Comment on above: Performed By: #### H EMOG, CMP3M, CRP2, LDH3, FIBGN, DDI2, APTT, FERR3 #### [facility] [address] [place] [address] AST [Catalytic activity/Vol] 88 U/L High 15-46 [facility] Comment on above: Performed By: #### H EMOG, CMP3M, CRP2, LDH3, FIBGN, DDI2, APTT, FERR3 #### [facility] [address] [place] [address] Bilirubin [Mass/Vol] 0.6 mg/dL Normal 0.2-1.3 [facility] Comment on above: Performed By: #### H EMOG, CMP3M, CRP2, LDH3, FIBGN, DDI2, APTT, FERR3 #### [facility] [address] [place] [address] Calcium [Mass/Vol] 8.9 mg/dL Normal 8.4-10.4 [facility] Comment on above: Performed By: #### H EMOG, CMP3M, CRP2, LDH3, FIBGN, DDI2, APTT, FERR3 #### [facility] [address] [place] [address] CO2 [Moles/Vol] 18 mmol/L Low 22-30 [facility] Comment on above: Performed By: #### H EMOG, CMP3M, CRP2, LDH3, FIBGN, DDI2, APTT, FERR3 #### [facility] [address] [place] [address] Creatinine [Mass/Vol] 2.24 mg/dL High 0.52-1.25 [facility] Comment on above: Performed By: #### H EMOG, CMP3M, CRP2, LDH3, FIBGN, DDI2, APTT, FERR3 #### [facility] [address] [place] [address] GFR/1.73 sq M predicted among blacks MDRD (S/P/Bld) [Vol rate/Area] 36.2 mL/min/{1.73_m2} Abnormal >60 [facility] Comment on above: Performed By: #### H EMOG, CMP3M, CRP2, LDH3, FIBGN, DDI2, APTT, FERR3 #### [facility] [address] [place] [address] GFR/1.73 sq M predicted among non-blacks MDRD (S/P/Bld) [Vol rate/Area] 31.3 mL/min/{1.73_m2} Abnormal >60 [facility] Comment on above: Result Comment: KDIG O guidelines provide the following GFR categories: Stage GFR(ml/min/1.73 m2) Terms G1 >=90 Normal or high G2 60-89 Mildly decreased* G3a 45-59 Mildly to moderately decreased G3b 30-44 Moderately to severely decreased G4 15-29 Severely decreased G5 <15 Kidney failure *Relative to young adult level. In the absence of evidence of kidney damage, neither GFR category G1 nor G2 fulfill the criteria for CKD. The CKD-EPI equation is validated in individuals 18 years of age and older. Currently the best equation for estimating glomerular filtration rate (GFR) from serum creatinine in children is the Bedside Garcia equation. It is less accurate in patients with extremes of muscle mass, restriction of dietary protein, ingestion of creatine, extra-renal metabolism of creatinine, or treatment with medications that affect renal tubular creatinine secretion. Performed By: #### H EMOG, CMP3M, CRP2, LDH3, FIBGN, DDI2, APTT, FERR3 #### [facility] [address] [place] [address] Glucose [Mass/Vol] 132 mg/dL High 70-100 [facility] Comment on above: Performed By: #### H EMOG, CMP3M, CRP2, LDH3, FIBGN, DDI2, APTT, FERR3 #### [facility] [address] [place] [address] Protein [Mass/Vol] 6.0 g/dL Low 6.3-8.2 [facility] Comment on above: Performed By: #### H EMOG, CMP3M, CRP2, LDH3, FIBGN, DDI2, APTT, FERR3 #### [facility] [address] [place] [address] Urea nitrogen [Mass/Vol] 33 mg/dL High 7-20 [facility] Comment on above: Performed By: #### H EMOG, CMP3M, CRP2, LDH3, FIBGN, DDI2, APTT, FERR3 #### [facility] [address] [place] [address] Potassium [Moles/Vol] 3.9 mmol/L Normal 3.5-5.1 [facility] Comment on above: Performed By: #### H EMOG, CMP3M, CRP2, LDH3, FIBGN, DDI2, APTT, FERR3 #### [facility] [address] [place] [address] Albumin [Mass/Vol] 3.2 g/dL Low 3.5-5.0 [facility] Comment on above: Performed By: #### H EMOG, CMP3M, CRP2, LDH3, FIBGN, DDI2, APTT, FERR3 #### [facility] [address] [place] [address] Chloride [Moles/Vol] 112 mmol/L High 98-107 [facility] Comment on above: Performed By: #### H EMOG, CMP3M, CRP2, LDH3, FIBGN, DDI2, APTT, FERR3 #### [facility] [address] [place] [address] Sodium [Moles/Vol] 137 mmol/L Normal 135-145 [facility] Comment on above: Performed By: #### H EMOG, CMP3M, CRP2, LDH3, FIBGN, DDI2, APTT, FERR3 #### [facility] [address] [place] [address] ALP [Catalytic activity/Vol] 81 U/L Normal 38-126 [facility] Comment on above: Performed By: #### H EMOG, CMP3M, CRP2, LDH3, FIBGN, DDI2, APTT, FERR3 #### [facility] [address] [place] [address] ALT [Catalytic activity/Vol] 67 U/L High 0-49 [facility] Comment on above: Result Comment: The ALT test is performed by an updated assay method. Please note that the reference intervals have been changed and are now sex specific. Performed By: #### H EMOG, CMP3M, CRP2, LDH3, FIBGN, DDI2, APTT, FERR3 #### [facility] [address] [place] [address] Anion gap [Moles/Vol] 9 Normal [facility] Comment on above: Performed By: #### H EMOG, CMP3M, CRP2, LDH3, FIBGN, DDI2, APTT, FERR3 #### [facility] [address] [place] [address] AST [Catalytic activity/Vol] 86 U/L High 15-46 [facility] Comment on above: Performed By: #### H EMOG, CMP3M, CRP2, LDH3, FIBGN, DDI2, APTT, FERR3 #### [facility] [address] [place] [address] Calcium [Mass/Vol] 8.5 mg/dL Normal 8.4-10.4 [facility] Comment on above: Performed By: #### H EMOG, CMP3M, CRP2, LDH3, FIBGN, DDI2, APTT, FERR3 #### [facility] [address] [place] [address] CO2 [Moles/Vol] 17 mmol/L Low 22-30 [facility] Comment on above: Performed By: #### H EMOG, CMP3M, CRP2, LDH3, FIBGN, DDI2, APTT, FERR3 #### [facility] [address] [place] [address] Glucose [Mass/Vol] 139 mg/dL High 70-100 [facility] Comment on above: Performed By: #### H EMOG, CMP3M, CRP2, LDH3, FIBGN, DDI2, APTT, FERR3 #### [facility] [address] [place] [address] Protein [Mass/Vol] 5.8 g/dL Low 6.3-8.2 [facility] Comment on above: Performed By: #### H EMOG, CMP3M, CRP2, LDH3, FIBGN, DDI2, APTT, FERR3 #### [facility] [address] [place] [address] Urea nitrogen [Mass/Vol] 31 mg/dL High 7-20 [facility] Comment on above: Performed By: #### H EMOG, CMP3M, CRP2, LDH3, FIBGN, DDI2, APTT, FERR3 #### [facility] [address] [place] [address] Bilirubin [Mass/Vol] 0.5 mg/dL Normal 0.2-1.3 [facility] Comment on above: Performed By: #### H EMOG, CMP3M, CRP2, LDH3, FIBGN, DDI2, APTT, FERR3 #### [facility] [address] [place] [address] Creatinine [Mass/Vol] 2.37 mg/dL High 0.52-1.25 [facility] Comment on above: Performed By: #### H EMOG, CMP3M, CRP2, LDH3, FIBGN, DDI2, APTT, FERR3 #### [facility] [address] [place] [address] GFR/1.73 sq M predicted among blacks MDRD (S/P/Bld) [Vol rate/Area] 33.9 mL/min/{1.73_m2} Abnormal >60 [facility] Comment on above: Performed By: #### H EMOG, CMP3M, CRP2, LDH3, FIBGN, DDI2, APTT, FERR3 #### [facility] [address] [place] [address] GFR/1.73 sq M predicted among non-blacks MDRD (S/P/Bld) [Vol rate/Area] 29.2 mL/min/{1.73_m2} Abnormal >60 [facility] Comment on above: Result Comment: KDIG O guidelines provide the following GFR categories: Stage GFR(ml/min/1.73 m2) Terms G1 >=90 Normal or high G2 60-89 Mildly decreased* G3a 45-59 Mildly to moderately decreased G3b 30-44 Moderately to severely decreased G4 15-29 Severely decreased G5 <15 Kidney failure *Relative to young adult level. In the absence of evidence of kidney damage, neither GFR category G1 nor G2 fulfill the criteria for CKD. The CKD-EPI equation is validated in individuals 18 years of age and older. Currently the best equation for estimating glomerular filtration rate (GFR) from serum creatinine in children is the Bedside Garcia equation. It is less accurate in patients with extremes of muscle mass, restriction of dietary protein, ingestion of creatine, extra-renal metabolism of creatinine, or treatment with medications that affect renal tubular creatinine secretion. Performed By: #### H EMOG, CMP3M, CRP2, LDH3, FIBGN, DDI2, APTT, FERR3 #### [facility] [address] [place] [address] Potassium [Moles/Vol] 4.3 mmol/L Normal 3.5-5.1 [facility] Comment on above: Performed By: #### H EMOG, CMP3M, CRP2, LDH3, FIBGN, DDI2, APTT, FERR3 #### [facility] [address] [place] [address] Sodium [Moles/Vol] 136 mmol/L Normal 135-145 [facility] Comment on above: Performed By: #### H EMOG, CMP3M, CRP2, LDH3, FIBGN, DDI2, APTT, FERR3 #### [facility] [address] [facility] [place] [address] Albumin [Mass/Vol] 3.0 g/dL Low 3.5-5.0 [facility] Comment on above: Performed By: #### H EMOG, CMP3M, CRP2, LDH3, FIBGN, DDI2, APTT, FERR3 #### [facility] [address] [place] [address] Chloride [Moles/Vol] 110 mmol/L High 98-107 [facility] Comment on above: Performed By: #### H EMOG, CMP3M, CRP2, LDH3, FIBGN, DDI2, APTT, FERR3 #### [facility] [address] [place] [address] Comprehensive Metabolic Pane l w/ Reflex to MGon 10-29-2020 Albumin [Mass/Vol] 3.2 g/dL Low 3.5 - 5 g/dL [place] ALP [Catalytic activity/Vol] 71 U/L 38 - 126 U/L [place] ALT [Catalytic activity/Vol] 67 U/L High 0 - 49 U/L [place] Comment on above: The ALT test is perf ormed by an updated assay method. Please note that the reference intervals have been changed and are now sex specific. Anion gap [Moles/Vol] 7 mmol/L [place], [place] AST [Catalytic activity/Vol] 88 U/L High 15 - 46 U/L [place] Bilirubin Ql (U) 0.6 mg/dL 0.2 - 1.3 mg/dL [place] Calcium [Mass/Vol] 8.9 mg/dL 8.4 - 10. 4 mg/dL [place] Chloride [Moles/Vol] 112 mmol/L High 98 - 10 7 mmol/L [place] CO2 [Moles/Vol] 18 mmol/L Low 22 - 30 mmol/L [place] Creatinine [Mass/Vol] 2.24 mg/dL High 0.52 - 1.25 mg/dL [place] EGFR IF NonAfrican Prydeinig 31.3 mL/min Abnormal >60 [place] Comment on above: KDIGO guidelines pro vide the following GFR categories: Stage GFR(ml/min/1.73 m2) Terms G1 >=90 Normal or high G2 60-89 Mildly decreased* G3a 45-59 Mildly to moderately decreased G3b 30-44 Moderately to severely decreased G4 15-29 Severely decreased G5 <15 Kidney failure *Relative to young adult level. In the absence of evidence of kidney damage, neither GFR category G1 nor G2 fulfill the criteria for CKD. The CKD-EPI equation is validated in individuals 18 years of age and older. Currently the best equation for estimating glomerular filtration rate (GFR) from serum creatinine in children is the Bedside Garcia equation. It is less accurate in patients with extremes of muscle mass, restriction of dietary protein, ingestion of creatine, extra-renal metabolism of creatinine, or treatment with medications that affect renal tubular creatinine secretion. GFR/1.73 sq M predicted among blacks MDRD (S/P/Bld) [Vol rate/Area] 36.2 mL/min/{1.73_m2} Abnormal >60 [place] Glucose [Mass/Vol] 132 mg/dL High 70 - 100 mg/dL [place] Interpretation and review of laboratory results Abnormal [place] Potassium [Moles/Vol] 3.9 mmol/L 3.5 - 5.1 mmol/L [place] Protein [Mass/Vol] 6.0 g/dL Low 6.3 - 8.2 g/dL [place] Sodium [Moles/Vol] 137 mmol/L 135 - 145 mmol/L [place] Urea nitrogen [Mass/Vol] 33 mg/dL High 7 - 20 mg/dL [place] Test Performed by [facility], [address] [place] [address] [place] Albumin [Mass/Vol] 3.0 g/dL Low 3.5 - 5 g/dL [place] ALP [Catalytic activity/Vol] 81 U/L 38 - 126 U/L [place] ALT [Catalytic activity/Vol] 67 U/L High 0 - 49 U/L [place] Comment on above: The ALT test is perf ormed by an updated assay method. Please note that the reference intervals have been changed and are now sex specific. Anion gap [Moles/Vol] 9 mmol/L [place] AST [Catalytic activity/Vol] 86 U/L High 15 - 46 U/L [place] Bilirubin Ql (U) 0.5 mg/dL 0.2 - 1.3 mg/dL [place] Calcium [Mass/Vol] 8.5 mg/dL 8.4 - 10. 4 mg/dL [place] Chloride [Moles/Vol] 110 mmol/L High 98 - 10 7 mmol/L [place] CO2 [Moles/Vol] 17 mmol/L Low 22 - 30 mmol/L [place] Creatinine [Mass/Vol] 2.37 mg/dL High 0.52 - 1.25 mg/dL [place] EGFR IF NonAfrican Prydeinig 29.2 mL/min Abnormal >60 [place] Comment on above: KDIGO guidelines pro vide the following GFR categories: Stage GFR(ml/min/1.73 m2) Terms G1 >=90 Normal or high G2 60-89 Mildly decreased* G3a 45-59 Mildly to moderately decreased G3b 30-44 Moderately to severely decreased G4 15-29 Severely decreased G5 <15 Kidney failure *Relative to young adult level. In the absence of evidence of kidney damage, neither GFR category G1 nor G2 fulfill the criteria for CKD. The CKD-EPI equation is validated in individuals 18 years of age and older. Currently the best equation for estimating glomerular filtration rate (GFR) from serum creatinine in children is the Bedside Garcia equation. It is less accurate in patients with extremes of muscle mass, restriction of dietary protein, ingestion of creatine, extra-renal metabolism of creatinine, or treatment with medications that affect renal tubular creatinine secretion. GFR/1.73 sq M predicted among blacks MDRD (S/P/Bld) [Vol rate/Area] 33.9 mL/min/{1.73_m2} Abnormal >60 [place] Glucose [Mass/Vol] 139 mg/dL High 70 - 100 mg/dL [place] Potassium [Moles/Vol] 4.3 mmol/L 3.5 - 5.1 mmol/L [place] Protein [Mass/Vol] 5.8 g/dL Low 6.3 - 8.2 g/dL [place] Sodium [Moles/Vol] 136 mmol/L 135 - 145 mmol/L [place] Urea nitrogen [Mass/Vol] 31 mg/dL High 7 - 20 mg/dL [place] D-Dimer, Innovanceon 12-16-2 020 D-Dimer, Innov[employer] 1.54 mg/L High 0.00-0.50 [facility] [employer] [facility] Comment on above: Result Comment: Inno quach D-Dimer values of <0.50 mg/L FEU can be used in combination with a pre-test probability model (e.g. Well's) to exclude pulmonary embolism (PE) disease, as well as an aid in the diagnosis of deep vein thrombosis (DVT). Performed By: #### H EMOG, CMP3M, CRP2, LDH3, FIBGN, DDI2, APTT, FERR3 #### [facility] [employer] [facility] [address] [place] [address] D-Dimer, [employer] 1.23 mg/L High 0.00-0.50 [facility] [employer] [facility] Comment on above: Result Comment: Inno quach D-Dimer values of <0.50 mg/L FEU can be used in combination with a pre-test probability model (e.g. Well's) to exclude pulmonary embolism (PE) disease, as well as an aid in the diagnosis of deep vein thrombosis (DVT). Performed By: #### H EMOG, CMP3M, CRP2, LDH3, FIBGN, DDI2, APTT, FERR3 #### [employer] [facility] [address] [place] [address] D-Dimer, Quantitativeon 12-1 D-Dimer, Quant 1.54 mg/L High 0 - 0.5 mg/L [facility], [place] Comment on above: [employer] D-Dimer va lues of <0.50 mg/L FEU can be used in combination with a pre-test probability model (e.g. Well's) to exclude pulmonary embolism (PE) disease, as well as an aid in the diagnosis of deep vein thrombosis (DVT). D-Dimer, Quant 1.23 mg/L High 0 - 0.5 mg/L [facility], [place] Comment on above: [employer] D-Dimer va lues of <0.50 mg/L FEU can be used in combination with a pre-test probability model (e.g. Well's) to exclude pulmonary embolism (PE) disease, as well as an aid in the diagnosis of deep vein thrombosis (DVT). EKG 12 Lead - Chest Painon 1 2-16-2020 Michel, [facility] Incoming Cardiology Results From [employer] - 10/29/2020 9:41 AM EST [facility] Test Date: 2020-10-28 Pat Name: Reggie León Department: 2A Room: 468 Gender: M Qa Consultant: PARESH : 1965 Requested By: ANDREW SILVER Order Number: [id number] Reading MD: Usama Johnston Intervals [place] Rate: 85 P: 15 WV: 184 QRS: -12 QRSD: 104 T: 73 QT: 408 QTc: 486 Interpretive Statements SINUS RHYTHM Electronically Signed On 10-29-2020 9:40:09 EST by [facility] Test Date: 2020-10-28 Pat Name: Reggie León Department: 2A Room: 468 Gender: M Qa Consultant: PARESH : 1965 Requested By: ANDREW SILVER Order Number: [id number] Reading MD: Usama Johnston Intervals [place] Rate: 85 P: 15 WV: 184 QRS: -12 QRSD: 104 T: 73 QT: 408 QTc: 486 Interpretive Statements SINUS RHYTHM Electronically Signed On 10-29-2020 9:40:09 EST by Usama [facility]te [facility] Ferritinon 10-29-2020 Ferritin [Mass/Vol] 714 ng/mL High 18-464 [facility] Comment on above: Performed By: #### H EMOG, CMP3M, CRP2, LDH3, FIBGN, DDI2, APTT, FERR3 #### [facility] [address] [place] [address] Ferritin [Mass/Vol] 714 ng/mL High 18 - 464 ng/mL [facility] Interpretation and review of laboratory results Abnormal [facility] Test Performed by [facility], [address], [place], [place] [address] [facility] Fibrinogenon 10-29-2020 Fibrinogen 534 mg/dL High 200-400 [facility] Comment on above: Performed By: #### H EMOG, CMP3M, CRP2, LDH3, FIBGN, DDI2, APTT, FERR3 #### [facility] [address] [place] [address] Fibrinogen 534 mg/dL High 200 - 400 mg/dL [place] Fibrinogen 587 mg/dL High 200-400 [facility] Comment on above: Performed By: #### H EMOG, CMP3M, CRP2, LDH3, FIBGN, DDI2, APTT, FERR3 #### [facility] [address] [place] [address] Fibrinogen 587 mg/dL High 200 - 400 mg/dL [place] Hemogramon 10-29-2020 Erythrocyte distribution width (RBC) [Ratio] 14.2 % Normal 11.5-14.5 [facility] Comment on above: Performed By: #### H EMOG, CMP3M, CRP2, LDH3, FIBGN, DDI2, APTT, FERR3 #### [facility] [address] [place] [address] Hematocrit (Bld) [Volume fraction] 37.3 % Low 40.0-52.0 [facility] Comment on above: Performed By: #### H EMOG, CMP3M, CRP2, LDH3, FIBGN, DDI2, APTT, FERR3 #### [facility] [address] [place] [address] Hemoglobin (Bld) [Mass/Vol] 12.6 g/dL Low 13.0-18.0 [facility] Comment on above: Performed By: #### H EMOG, CMP3M, CRP2, LDH3, FIBGN, DDI2, APTT, FERR3 #### [facility] [address] [place] [address] MCH (RBC) [Entitic mass] 29.2 pg Normal 26.0-34.0 [facility] Comment on above: Performed By: #### H EMOG, CMP3M, CRP2, LDH3, FIBGN, DDI2, APTT, FERR3 #### [facility] [address] [place] [address] MCHC (RBC) [Mass/Vol] 33.7 % Normal 32.0-36.0 [facility] Comment on above: Performed By: #### H EMOG, CMP3M, CRP2, LDH3, FIBGN, DDI2, APTT, FERR3 #### [facility] [address] [place] [address] MCV (RBC) [Entitic vol] 86.7 fL Normal 80.0-98.0 [facility] Comment on above: Performed By: #### H EMOG, CMP3M, CRP2, LDH3, FIBGN, DDI2, APTT, FERR3 #### [facility] [address] [place] [address] Platelet mean volume (Bld) [Entitic vol] 7.6 fL Normal 7.4-10.4 [facility] Comment on above: Performed By: #### H EMOG, CMP3M, CRP2, LDH3, FIBGN, DDI2, APTT, FERR3 #### [facility] [address] [place] [address] Platelets (Bld) [#/Vol] 255 10*3/uL Normal 140-440 [facility] Comment on above: Performed By: #### H EMOG, CMP3M, CRP2, LDH3, FIBGN, DDI2, APTT, FERR3 #### [facility] [address] [place] [address] RBC (Bld) [#/Vol] 4.30 10*6/uL Low 4.40-5.90 [facility] Comment on above: Performed By: #### H EMOG, CMP3M, CRP2, LDH3, FIBGN, DDI2, APTT, FERR3 #### [facility] [address] [place] [address] WBC (Bld) [#/Vol] 7.8 10*3/uL Normal 3.6-10.7 [facility] Comment on above: Performed By: #### H EMOG, CMP3M, CRP2, LDH3, FIBGN, DDI2, APTT, FERR3 #### [facility] [address] [place] [address] Hemogram w/ Autodiffon 10-29 Abs Baso Cnt 0.0 10*3/uL Normal 0.0-0.2 [facility] Comment on above: Performed By: #### H EMOG, CMP3M, CRP2, LDH3, FIBGN, DDI2, APTT, FERR3 #### [facility] [address] [place] [address] Abs Neutrophile Cnt 3.5 10*3/uL Normal 1.8-7.0 [facility] Comment on above: Performed By: #### H EMOG, CMP3M, CRP2, LDH3, FIBGN, DDI2, APTT, FERR3 #### [facility] [address] [place] [address] Basophils/100 WBC (Bld) 0.3 % Normal 0.0-2.0 [facility] Comment on above: Performed By: #### H EMOG, CMP3M, CRP2, LDH3, FIBGN, DDI2, APTT, FERR3 #### [facility] [address] [place] [address] Eosinophils (Bld) [#/Vol] 0.0 10*3/uL Normal 0.0-0.5 [facility] Comment on above: Performed By: #### H EMOG, CMP3M, CRP2, LDH3, FIBGN, DDI2, APTT, FERR3 #### [facility] [address] [place] [address] Eosinophils/100 WBC (Bld) 0.0 % Low 1.0-6.0 [facility] Comment on above: Performed By: #### H EMOG, CMP3M, CRP2, LDH3, FIBGN, DDI2, APTT, FERR3 #### [facility] [address] [place] [address] Erythrocyte distribution width (RBC) [Ratio] 13.8 % Normal 11.5-14.5 [facility] Comment on above: Performed By: #### H EMOG, CMP3M, CRP2, LDH3, FIBGN, DDI2, APTT, FERR3 #### [facility] [address] [place] [address] Granulocytes/100 WBC (Bld) 79.4 % Normal 40.0-80.0 [facility] Comment on above: Performed By: #### H EMOG, CMP3M, CRP2, LDH3, FIBGN, DDI2, APTT, FERR3 #### [facility] [address] [place] [address] Hematocrit (Bld) [Volume fraction] 36.7 % Low 40.0-52.0 [facility] Comment on above: Performed By: #### H EMOG, CMP3M, CRP2, LDH3, FIBGN, DDI2, APTT, FERR3 #### [facility] [address] [place] [address] Hemoglobin (Bld) [Mass/Vol] 12.2 g/dL Low 13.0-18.0 [facility] Comment on above: Performed By: #### H EMOG, CMP3M, CRP2, LDH3, FIBGN, DDI2, APTT, FERR3 #### [place] [address] [place] [address] Lymphocytes (Bld) [#/Vol] 0.4 10*3/uL Low 1.0-4.3 [facility] Comment on above: Performed By: #### H EMOG, CMP3M, CRP2, LDH3, FIBGN, DDI2, APTT, FERR3 #### [facility] [address] [place] [address] Lymphocytes/100 WBC (Bld) 8.8 % Low 20.0-40.0 [facility] Comment on above: Performed By: #### H EMOG, CMP3M, CRP2, LDH3, FIBGN, DDI2, APTT, FERR3 #### [facility] [address] [place] [address] MCH (RBC) [Entitic mass] 29.1 pg Normal 26.0-34.0 [facility] Comment on above: Performed By: #### H EMOG, CMP3M, CRP2, LDH3, FIBGN, DDI2, APTT, FERR3 #### [facility] [address] [place] [address] MCHC (RBC) [Mass/Vol] 33.1 % Normal 32.0-36.0 [facility] Comment on above: Performed By: #### H EMOG, CMP3M, CRP2, LDH3, FIBGN, DDI2, APTT, FERR3 #### [facility] [address] [place] [address] MCV (RBC) [Entitic vol] 87.8 fL Normal 80.0-98.0 [facility] Comment on above: Performed By: #### H EMOG, CMP3M, CRP2, LDH3, FIBGN, DDI2, APTT, FERR3 #### [facility] [address] [place] [address] Monocytes (Bld) [#/Vol] 0.5 10*3/uL Normal 0.0-0.8 [facility] Comment on above: Performed By: #### H EMOG, CMP3M, CRP2, LDH3, FIBGN, DDI2, APTT, FERR3 #### [facility] [address] [place] [address] Monocytes/100 WBC (Bld) 11.5 % High 2.0-10.0 [facility] Comment on above: Performed By: #### H EMOG, CMP3M, CRP2, LDH3, FIBGN, DDI2, APTT, FERR3 #### [facility] [address] [place] [address] Platelet mean volume (Bld) [Entitic vol] 7.9 fL Normal 7.4-10.4 [facility] Comment on above: Performed By: #### H EMOG, CMP3M, CRP2, LDH3, FIBGN, DDI2, APTT, FERR3 #### [facility] [address] [place] [address] Platelets (Bld) [#/Vol] 231 10*3/uL Normal 140-440 [facility] Comment on above: Performed By: #### H EMOG, CMP3M, CRP2, LDH3, FIBGN, DDI2, APTT, FERR3 #### [facility] [address] [place] [address] RBC (Bld) [#/Vol] 4.19 10*6/uL Low 4.40-5.90 [facility] Comment on above: Performed By: #### H EMOG, CMP3M, CRP2, LDH3, FIBGN, DDI2, APTT, FERR3 #### [facility] [address] [place] [address] WBC (Bld) [#/Vol] 4.4 10*3/uL Normal 3.6-10.7 [facility] Comment on above: Performed By: #### H EMOG, CMP3M, CRP2, LDH3, FIBGN, DDI2, APTT, FERR3 #### [facility] [address] [place] [address] LDHon 10-29-2020 LDH 676 U/L High 120-246 [facility] Comment on above: Performed By: #### H EMOG, CMP3M, CRP2, LDH3, FIBGN, DDI2, APTT, FERR3 #### [facility] [address] [place] [id number] Lactate Dehydrogenaseon 10-14 LD 676 U/L High 120 - 246 U/L [facility] [place] Lithiumon 10-29-2020 [place] [Moles/Vol] 0.7 mmol/L Normal 0.6-1.2 [facility] Comment on above: Performed By: #### H EMOG, CMP3M, CRP2, LDH3, FIBGN, DDI2, APTT, FERR3 #### [facility] [address] [place] [address] [place] Levelon 10-29-2020 [place] Lvl 0.7 mmol/L 0.6 - 1.2 mmol/L [facility], [place] Otheron 10-29-2020 Interpretation and review of laboratory results Abnormal [facility], [place] Test Performed by [facility], [facility] [address] [place] J[place] Juab [id number] [place] [address], [place] Interpretation and review of laboratory results Abnormal [facility], [place] Test Performed by [facility], [address] [place] [id number] [place] [address], [place] Interpretation and review of laboratory results Abnormal [facility], [place] Test Performed by [facility], [address] [place] [id number] [place] [address], [place] Procalcitoninon 10-29-2020 Procalcitonin 0.31 ng/mL Abnormal <0.10 [facility] Comment on above: Performed By: #### H EMOG, CMP3M, CRP2, LDH3, FIBGN, DDI2, APTT, FERR3 #### [facility] [address] [place] [address] Interpretation and review of laboratory results Abnormal [place], [place] Procalcitonin 0.31 ng/mL Abnormal <0.10 [place] Sodium [Moles/Vol] See Below [place], [place] Comment on above: PCT <0.50 = Low risk of severe sepsis and/or septic shock. PCT >2.00 = High risk of severe sepsis and/or septic shock. Test Performed by [facility], [address] [place] [id number] [place], [place] Vit D 25-OH, Totalon 020 Vit D 25-OH, Total 69 ng/mL Normal 30-100 [facility] Comment on above: Result Comment: Ther apy is based on measurement of Total 25-OHD with the following classification levels: Less than 20 ng/mL: Indicative of Vit D deficiency 20-30 ng/mL: Suggests Vit D insufficiency Optimal: Greater than or equal to 30 ng/mL Test performed by [employer] Competitive Immunoassay, measuring Total Vitamin D, not individual fractions. Performed By: #### H EMOG, CMP3M, CRP2, LDH3, FIBGN, DDI2, APTT, FERR3 #### [facility] [address] [place] [place] [address] Vitamin D 25 Hydroxyon 10-29 Vit D, 25-Hydroxy 69 ng/mL 30 - 100 ng/mL [place], [place] Comment on above: Therapy is based on measurement of Total 25-OHD with the following classification levels: Less than 20 ng/mL: Indicative of Vit D deficiency 20-30 ng/mL: Suggests Vit D insufficiency Optimal: Greater than or equal to 30 ng/mL Test performed by [employer] Competitive Immunoassay, measuring Total Vitamin D, not individual fractions. Test Performed by [facility] [employer] [facility], [address], [place], [place] [address] [place], [place] Arterial Blood Gas Respirato sarah 10-28-2020 Base Excess -5.8 mmol/L Low -3.0-3.0 [facility] Comment on above: Performed By: #### A BGE #### [facility] [address] [place] [address] CO2 [Moles/Vol] 19.3 mmol/L Low 23.0-27.0 [facility] Comment on above: Performed By: #### A BGE #### [facility] [address] [place] [address] FIO2 21 Normal [facility] Comment on above: Result Comment: Perf ormed by CLIA ID: [id number] [place], [place] Performed By: #### A BGE #### [facility] [address] [place] [address] HCO3 (Bld) [Moles/Vol] 18.3 mmol/L Low 21.0-25.0 [facility] Comment on above: Performed By: #### A BGE #### [facility] [address] [place] [address] Oxygen (Bld) [Partial pressure] 69.8 mm[Hg] Low 80.0-100.0 [facility] Comment on above: Performed By: #### A BGE #### [facility] [address] [place] [address] Oxygen saturation in Blood 93.6 % Low 95.0-100.0 [facility] Comment on above: Performed By: #### A BGE #### [facility] [address] [place] [address] pCO2 31.2 mm[Hg] Low 35.0-45.0 [facility] Comment on above: Performed By: #### A BGE #### [facility] [address] [place] [address] pH (Bld) 7.376 Normal 7.350-7.45 0 [facility] Comment on above: Performed By: #### A BGE #### [facility] [address] [place] [address] Brain Natriuretic Peptideon 10-28-2020 Natriuretic peptide B (Bld) [Mass/Vol] 47 pg/mL 0 - 125 pg/mL [facility], [place] CR Chest Portableon 10-28-20 20 CR Chest Portable Patient Name: REGGIE WILSON [facility]#: [id number] Diagnostic Radiology ACCESSION EXAM DATE/TIME PROCEDURE ORDERING PROVIDER [id number] 10/28/2020 15:05 EST CR Chest Portable ADRIANNE BALAJIANDREW CPT code 58153 Reason For Exam (CR Chest Portable) dyspnea Report EXAM TYPE: RADIOLOGIC EXAMINATION, CHEST, SINGLE VIEW FRONTAL (CXR SINGLE VIEW) EXAM DATE AND TIME: 10/28/2020 3:05 PM EST INDICATION: Respiratory distress COMPARISON: None TECHNIQUE: A single frontal view of the thorax was obtained and reviewed. Special views: None. IMPRESSION: 1. Lines/Tubes/Devices/Hardwa re: None. Please confirm position/function of devices/catheters clinically. 2. Lungs: Abnormal lung fisher. Coarse interstitial prominence suspicious for interstitial infiltrate or edema. Consider pneumonia or CHF in the appropriate setting. There is no consolidation or major volume loss. 3. Pleura: No significant effusion. No significant pneumothorax. 4. Heart and mediastinum: Limited due to technique. 5. Upper abdomen: No acute process seen. 6. Thorax:No acute bony process Report Dictated on Final Dictating Physician: MD HAY JOHN Signed Date and Time: 10/28/2020 3:20 pm Signed by: MD HAY JOHN Transcribed Date and Time: 10/28/2020 3:21 Normal [facility] Comp Metabolic Panelon 10-28 ALP [Catalytic activity/Vol] 82 U/L Normal 38-126 [facility] Comment on above: Performed By: #### H EMOG, CMP3M, CRP2, LDH3, FIBGN, DDI2, APTT, FERR3 #### [facility] [address] [place] [address] ALT [Catalytic activity/Vol] 60 U/L High 0-49 [facility] Comment on above: Result Comment: The ALT test is performed by an updated assay method. Please note that the reference intervals have been changed and are now sex specific. Performed By: #### H EMOG, CMP3M, CRP2, LDH3, FIBGN, DDI2, APTT, FERR3 #### [facility] [address] [place] [address] Calcium [Mass/Vol] 8.6 mg/dL Normal 8.4-10.4 [facility] Comment on above: Performed By: #### H EMOG, CMP3M, CRP2, LDH3, FIBGN, DDI2, APTT, FERR3 #### [facility] [address] [place] [address] Glucose [Mass/Vol] 122 mg/dL High 70-100 [facility] Comment on above: Performed By: #### H EMOG, CMP3M, CRP2, LDH3, FIBGN, DDI2, APTT, FERR3 #### [facility] [address] [place] [address] Protein [Mass/Vol] 6.2 g/dL Low 6.3-8.2 [facility] Comment on above: Performed By: #### H EMOG, CMP3M, CRP2, LDH3, FIBGN, DDI2, APTT, FERR3 #### [facility] [address] [place] [address] Urea nitrogen [Mass/Vol] 35 mg/dL High 7-20 [facility] Comment on above: Performed By: #### H EMOG, CMP3M, CRP2, LDH3, FIBGN, DDI2, APTT, FERR3 #### [facility] [address] [place] [address] Anion gap [Moles/Vol] 9 Normal [facility] Comment on above: Performed By: #### H EMOG, CMP3M, CRP2, LDH3, FIBGN, DDI2, APTT, FERR3 #### [facility] [address] [place] [address] AST [Catalytic activity/Vol] 87 U/L High 15-46 [facility] Comment on above: Performed By: #### H EMOG, CMP3M, CRP2, LDH3, FIBGN, DDI2, APTT, FERR3 #### [facility] [address] [place] [address] Bilirubin [Mass/Vol] 0.6 mg/dL Normal 0.2-1.3 [facility] Comment on above: Performed By: #### H EMOG, CMP3M, CRP2, LDH3, FIBGN, DDI2, APTT, FERR3 #### [facility] [address] [place] [address] CO2 [Moles/Vol] 22 mmol/L Normal 22-30 [facility] Comment on above: Performed By: #### H EMOG, CMP3M, CRP2, LDH3, FIBGN, DDI2, APTT, FERR3 #### [facility] [address] [place] [address] Creatinine [Mass/Vol] 2.96 mg/dL High 0.52-1.25 [facility] Comment on above: Performed By: #### H EMOG, CMP3M, CRP2, LDH3, FIBGN, DDI2, APTT, FERR3 #### [facility] [address] [place] [address] GFR/1.73 sq M predicted among blacks MDRD (S/P/Bld) [Vol rate/Area] 25.9 mL/min/{1.73_m2} Abnormal >60 [facility] Comment on above: Performed By: #### H EMOG, CMP3M, CRP2, LDH3, FIBGN, DDI2, APTT, FERR3 #### [facility] [address] [place] [address] GFR/1.73 sq M predicted among non-blacks MDRD (S/P/Bld) [Vol rate/Area] 22.3 mL/min/{1.73_m2} Abnormal >60 [facility] Comment on above: Result Comment: KDIG O guidelines provide the following GFR categories: Stage GFR(ml/min/1.73 m2) Terms G1 >=90 Normal or high G2 60-89 Mildly decreased* G3a 45-59 Mildly to moderately decreased G3b 30-44 Moderately to severely decreased G4 15-29 Severely decreased G5 <15 Kidney failure *Relative to young adult level. In the absence of evidence of kidney damage, neither GFR category G1 nor G2 fulfill the criteria for CKD. The CKD-EPI equation is validated in individuals 18 years of age and older. Currently the best equation for estimating glomerular filtration rate (GFR) from serum creatinine in children is the Bedside Garcia equation. It is less accurate in patients with extremes of muscle mass, restriction of dietary protein, ingestion of creatine, extra-renal metabolism of creatinine, or treatment with medications that affect renal tubular creatinine secretion. Performed By: #### H EMOG, CMP3M, CRP2, LDH3, FIBGN, DDI2, APTT, FERR3 #### [facility] [address] [place] [address] Chloride [Moles/Vol] 101 mmol/L Normal 98-107 [facility] Comment on above: Performed By: #### H EMOG, CMP3M, CRP2, LDH3, FIBGN, DDI2, APTT, FERR3 #### [facility] [address] [place] [address] Potassium [Moles/Vol] 3.1 mmol/L Low 3.5-5.1 [facility] Comment on above: Performed By: #### H EMOG, CMP3M, CRP2, LDH3, FIBGN, DDI2, APTT, FERR3 #### [facility] [address] [place] [address] Sodium [Moles/Vol] 133 mmol/L Low 135-145 [facility] Comment on above: Performed By: #### H EMOG, CMP3M, CRP2, LDH3, FIBGN, DDI2, APTT, FERR3 #### [facility] [address] [place] [address] Albumin [Mass/Vol] 3.3 g/dL Low 3.5-5.0 [facility] Comment on above: Performed By: #### H EMOG, CMP3M, CRP2, LDH3, FIBGN, DDI2, APTT, FERR3 #### [facility] [address] [place] [address] Complete Urinalysison 2019 Amorphous Crystal Few Abnormal Negative [facility] Comment on above: Result Comment: . Performed By: #### C UA2 #### [facility] [address] [place] [address] Appearance (U) Clear Normal Clear [facility] Comment on above: Result Comment: . Performed By: #### C UA2 #### [facility] [address] [place] [address] Bacteria LM.HPF (Urine sed) [#/Area] Few Abnormal Negative [facility] Comment on above: Result Comment: . Performed By: #### C UA2 #### [facility] [address] [place] [address] Bilirubin,Urine Negative Normal Negative [facility] Comment on above: Result Comment: . Performed By: #### C UA2 #### [facility] [address] [place] [address] Cast, Granular 0 - 2 Abnormal Negative [facility] Comment on above: Result Comment: . Performed By: #### C UA2 #### [facility] [address] [place] [address] Cast, Hyaline 3 - 5 Abnormal Negative [facility] Comment on above: Result Comment: . Performed By: #### C UA2 #### [facility] [address] [place] [address] Color (U) Yellow Normal Lt. Yellow [facility] Comment on above: Result Comment: . Performed By: #### C UA2 #### [facility] [address] [place] [address] Glucose Ql (U) Normal Normal Normal (<70) [facility] Comment on above: Result Comment: . Performed By: #### C UA2 #### [facility] [address] [place] [address] Ketone,Urine Negative Normal Negative [facility] Comment on above: Result Comment: . Performed By: #### C UA2 #### [facility] [address] [place] [address] Leukocytes,Urine Negative Normal Negative [facility] Comment on above: Result Comment: . Performed By: #### C UA2 #### [facility] [address] [place] [address] Mucous Threads Few Normal Negative [facility] Comment on above: Result Comment: . Performed By: #### C UA2 #### [facility] [address] [place] [address] Nitrites,Urine Negative Normal Negative [facility] Comment on above: Result Comment: . Performed By: #### C UA2 #### [facility] [address] [place] [address] Non-Squamous Epithelial < 1 Abnormal Negative [facility] Comment on above: Result Comment: . Performed By: #### C UA2 #### [facility] [address] [place] [address] Occult Blood,Urine Negative Normal Negative [facility] Comment on above: Result Comment: . Performed By: #### C UA2 #### [facility] [address] [place] [address] pH (U) 5.5 Normal 5.0-8.0 [facility] Comment on above: Result Comment: . Performed By: #### C UA2 #### [facility] [address] [place] [address] Protein (U) [Mass/Vol] 20 mg/dL Abnormal Negative [facility] Comment on above: Result Comment: . Performed By: #### C UA2 #### [place] [address] [place] [address] RBC LM.HPF (Urine sed) [#/Area] 0 - 2 Normal 0-2 [facility] Comment on above: Result Comment: . Performed By: #### C UA2 #### [facility] [address] [place] [address] Specific [place],Urine 1.015 Normal 1.005 - 1.030 [facility] Comment on above: Result Comment: . Performed By: #### C UA2 #### [facility] [address] [place] [address] Squamous Epithelial 0 - 2 Normal 3-5 [facility] Comment on above: Result Comment: . Performed By: #### C UA2 #### [facility] [address] [place] [address] Urobilinogen,Urine Normal Normal Normal (0-1) [facility] Comment on above: Result Comment: . Performed By: #### C UA2 #### [facility] [address] [place] [address] WBC LM.HPF (Urine sed) [#/Area] 0 - 2 Normal 0-5 [facility] Comment on above: Result Comment: . Performed By: #### C UA2 #### [facility] [address] [place] [address] Comprehensive Metabolic Pane rahul 10-28-2020 Albumin [Mass/Vol] 3.3 g/dL Low 3.5 - 5 g/dL [place] ALP [Catalytic activity/Vol] 82 U/L 38 - 126 U/L [place] ALT [Catalytic activity/Vol] 60 U/L High 0 - 49 U/L [place] Comment on above: The ALT test is perf ormed by an updated assay method. Please note that the reference intervals have been changed and are now sex specific. Anion gap [Moles/Vol] 9 mmol/L [place], [place] AST [Catalytic activity/Vol] 87 U/L High 15 - 46 U/L [place] Bilirubin Ql (U) 0.6 mg/dL 0.2 - 1.3 mg/dL [place] Calcium [Mass/Vol] 8.6 mg/dL 8.4 - 10. 4 mg/dL [place] Chloride [Moles/Vol] 101 mmol/L 98 - 10 7 mmol/L [place] CO2 [Moles/Vol] 22 mmol/L 22 - 30 mmol/L [place] Creatinine [Mass/Vol] 2.96 mg/dL High 0.52 - 1.25 mg/dL [place] EGFR IF NonAfrican Prydeinig 22.3 mL/min Abnormal >60 [place] Comment on above: KDIGO guidelines pro vide the following GFR categories: Stage GFR(ml/min/1.73 m2) Terms G1 >=90 Normal or high G2 60-89 Mildly decreased* G3a 45-59 Mildly to moderately decreased G3b 30-44 Moderately to severely decreased G4 15-29 Severely decreased G5 <15 Kidney failure *Relative to young adult level. In the absence of evidence of kidney damage, neither GFR category G1 nor G2 fulfill the criteria for CKD. The CKD-EPI equation is validated in individuals 18 years of age and older. Currently the best equation for estimating glomerular filtration rate (GFR) from serum creatinine in children is the Bedside Garcia equation. It is less accurate in patients with extremes of muscle mass, restriction of dietary protein, ingestion of creatine, extra-renal metabolism of creatinine, or treatment with medications that affect renal tubular creatinine secretion. GFR/1.73 sq M predicted among blacks MDRD (S/P/Bld) [Vol rate/Area] 25.9 mL/min/{1.73_m2} Abnormal >60 [place] Glucose [Mass/Vol] 122 mg/dL High 70 - 100 mg/dL [place] Interpretation and review of laboratory results Abnormal [place] Potassium [Moles/Vol] 3.1 mmol/L Low 3.5 - 5.1 mmol/L [place] Protein [Mass/Vol] 6.2 g/dL Low 6.3 - 8.2 g/dL [place] Sodium [Moles/Vol] 133 mmol/L Low 135 - 145 mmol/L [place] Urea nitrogen [Mass/Vol] 35 mg/dL High 7 - 20 mg/dL [place] ED Provider Noteon 0 ED Provider Note Emergency Department [facility] Patient: Reggie León : 1965 Date of Evaluation: 10/28/2020 ED Supervising Physician: Otf Long DO I independently examined and evaluated Reggie León. In brief, Reggie León is a 55 y.o. male that presents to the emergency department with increased shortness of breath from his intermediate. Patient has a known COVID-19 infection. Patient is not normally on oxygen. Patient arrives saturating 87% on room complaining of shortness of breath and nonproductive cough. Patient denies any other chest pain, abdominal pain, nausea, vomiting, fever, chills, weakness, numbness. Focused exam: Alert and oriented ?4, no acute distress, nontoxic appearing, Pulm: Rhonchorous respirations bilaterally bases, saturating 87% on room air., Cardiac: regular rate and rhythm, Abdomen: soft nontender, Neuro: no focal motor or sensory deficits. Brief ED course/MDM: Patient presents with a known COVID infection coming in with increased shortness of breath. Patient has history of schizophrenia and is a poor historian, only complaints of mild shortness of breath and cough. CELINA spoke with the patient's intermediate who states that he was on 4 L nasal cannula and they could not get pulse oximeter she reviewed. On arrival to the emergency room, patient was trialed off of oxygen and desaturated down to 87%, tachypnea And complained of more shortness of breath. Patient placed on 2 L with improvement to the mid to low 90s. X-ray concerning for cough and pneumonia, lab work was within normal limits. Will admit the patient for further management of his hypoxia and Covid pneumonia. EKG: Sinus rhythm rate 85, QTC 486, W[place] interval 184, Q wave in lead 3, no other acute ST or T-wave abnormalities. All diagnostic, treatment, and disposition decisions were made by myself in conjunction with the CELINA. For all further details of the patient's emergency department visit, please see their documentation. (Please note that portions of this note may have been completed with a voice recognition program. Efforts were made to edit the dictations but occasionally words are mis-transcribed.) Otf Long DO [employer] Otf Long DO 10/28/20 1823 [facility] ED Provider [facility] eMERGENCY dEPARTMENT eNCOUnter Pt Name: Reggie León Birthdate 1965 Date of evaluation: 10/28/2020 Provider: Andrew Silver APRN - BALAJ[place] This patient was seen in conjunction with Dr. Long CHIEF COMPLAINT Chief Complaint Patient presents with ? Shortness of Breath HISTORY OF PRESENT ILLNESS (Location/Symptom, Timing/Onset,Context/Setti ng, Quality, Duration, Modifying Factors, Severity) Note limiting factors. HPI Reggie León is a 55 y.o. male who presents to the emergency department with fever and low pulse oximetry. Patient resides at an extended care facility, was diagnosed with Covid 19 19 on the seventh, he really denies any shortness of breath or fevers but there is equal reports that he has had a low pulse oximetry and high fevers. Hemodynamically stable on arrival. Specifically has no complaints. Nursing Notes were reviewed. REVIEW OF SYSTEMS (2+ for4; 10+ for level 5) Review of Systems Constitutional: Negative for activity change, appetite change, chills and fever. HENT: Negative for congestion, ear discharge, ear pain, hearing loss, postnasal drip, rhinorrhea and sore throat. Eyes: Negative for discharge and redness. Respiratory: Negative for chest tightness and shortness of breath. Cardiovascular: Negative for chest pain. Gastrointestinal: Negative for abdominal pain, diarrhea, nausea and vomiting. Genitourinary: Negative for dysuria. Musculoskeletal: Negative for arthralgias and myalgias. Skin: Negative for color change. Neurological: Negative for dizziness, light-headedness and headaches. Psychiatric/Behavioral: Negative for confusion. All other systems reviewed and are negative. PAST MEDICAL HISTORY No past medical history on file. SURGICALHISTORY No past surgical history on file. CURRENT MEDICATIONS Previous Medications No medications on file Bee pollen, Flonase [fluticasone], Lamotrigine, and Zyprexa [olanzapine] FAMILY HISTORY No family history on file. SOCIAL HISTORY Social History Socioeconomic History ? Marital status: Spouse name: Not on file ? Number of children: Not on file ? Years of education: Not on file ? Highest education level: Not on file Occupational History ? Not on file Social Needs ? Financial resource strain: Not on file ? Food insecurity Worry: Not on file Inability: Not on file ? Transportation needs Medical: Not on file Non-medical: Not on file Tobacco Use ? Smoking status: Not on file Substance and Sexual Activity ? Alcohol use: Not on file ? Drug use: Not on file ? Sexual activity: Not on file Lifestyle ? Physical activity Days per week: Not on file Minutes per session: Not on file ? Stress: Not on file Relationships ? Social connections Talks on phone: Not on file Gets together: Not on file Attends jewish service: Not on file Active member of club or organization: Not on file Attends meetings of clubs or organizations: Not on file Relationship status: Not on file ? Intimate partner violence Fear of current or ex partner: Not on file Emotionally abused: Not on file Physically abused: Not on file Forced sexual activity: Not on file Other Topics Concern ? Not on file Social History Narrative ? Not on file SCREENINGS @FLOW([id number])@ PHYSICAL EXAM (5+ for level 4, 8+ for level 5) ED Triage Vitals BP Temp Temp src Pulse Resp SpO2 Height Weight -- -- -- -- -- -- -- -- Physical Exam Vitals signs and nursing note reviewed. Constitutional: General: He is not in acute distress. Appearance: Normal appearance. He is normal weight. He is not ill-appearing or toxic-appearing. HENT: Head: Normocephalic and atraumatic. Right Ear: External ear normal. Left Ear: External ear normal. Nose: Nose normal. Mouth/Throat: Mouth: Mucous membranes are moist. Pharynx: Oropharynx is clear. Eyes: Conjunctiva/sclera: Conjunctivae normal. Pupils: Pupils are equal, round, and reactive to light. Neck: Musculoskeletal: Normal range of motion and neck supple. No neck rigidity or muscular tenderness. Cardiovascular: Rate and Rhythm: Normal rate and regular rhythm. Pulses: Normal pulses. Heart sounds: Normal heart sounds. No murmur. Pulmonary: Comments: Crackles in the bases bilaterally, no respiratory distress, patient speaks in full sentences. Musculoskeletal: Normal range of motion. General: No swelling, tenderness, deformity or signs of injury. Lymphadenopathy: Cervical: No cervical adenopathy. Skin: General: Skin is warm and dry. Capillary Refill: Capillary refill takes less than 2 seconds. Coloration: Skin is not jaundiced. Findings: No bruising. Neurological: General: No focal deficit present. Mental Status: He is alert and oriented to person, place, and time. Mental status is at baseline. Psychiatric: Mood and Affect: Mood normal. DIAGNOSTIC RESULTS EKG (Per Emergency Physician): All electrocardiograms are interpreted by the Emergency Department physician in the absence of a head animal keeper. Please see their accompanying note for interpretation. RADIOLOGY (Per EmergencyPhysician): Interpretation per the Radiologist below, if available at the time of this note: Xr Chest Portable Result Date: 10/28/2020 Patient Name: REGGIE LEÓN Diagnostic Radiology ACCESSION EXAM DATE/TIME PROCEDURE ORDERING PROVIDER [id number] 10/28/2020 15:05 EST CR Chest Portable BALAJI SILVER DANIEL M CPT code 43237 Reason For Exam (CR Chest Portable) dyspnea Report EXAM TYPE: RADIOLOGIC EXAMINATION, CHEST, SINGLE VIEW FRONTAL (CXR SINGLE VIEW) EXAM DATE AND TIME: 10/28/2020 3:05 PM EST INDICATION: Respiratory distress COMPARISON: None TECHNIQUE: A single frontal view of the thorax was obtained and reviewed. Special views: None. IMPRESSION: 1. Lines/Tubes/Devices/Hardwa re: None. Please confirm position/function of devices/catheters clinically. 2. Lungs: Abnormal lung fisher. Coarse interstitial prominence suspicious for interstitial infiltrate or edema. Consider pneumonia or CHF in the appropriate setting. There is no consolidation or major volume loss. 3. Pleura: No significant effusion. No significant pneumothorax. 4. Heart and mediastinum: Limited due to technique. 5. Upper abdomen: No acute process seen. 6. Thorax:No acute bony process Report Dictated on --- Final --- Dictating Physician: MD HAY JOHN Signed Date and Time: 10/28/2020 3:20 pm Signed by: MD HAY JOHN Transcribed Date and Time: 10/28/2020 3:21 : Labs Reviewed COMPREHENSIVE METABOLIC PANEL - Abnormal; Notable for the following components: Result Value Sodium 133 (*) Potassium 3.1 (*) Glucose 122 (*) BUN 35 (*) CREATININE 2.96 (*) eGFR 25.9 (*) EGFR IF NonAfrican Prydeinig 22.3 (*) Albumin,Serum 3.3 (*) Total Protein 6.2 (*) ALT 60 (*) AST 87 (*) All other components within normal limits Narrative: Test Performed by [facility], [address] [place] [address] CBC WITH AUTO DIFFERENTIAL - Abnormal; Notable for the following components: Hemoglobin 12.9 (*) Hematocrit 38.1 (*) Lymphocyte % 13.6 (*) Monocytes 17.8 (*) Eosinophils 0.8 (*) Absolute Lymph # 0.6 (*) All other components within normal limits Narrative: Test Performed by [facility], [address] [place] [address] POCT ARTERIAL - Abnormal; Notable for the following components: pCO2, Arterial 31.2 (*) pO2, Arterial 69.8 (*) HCO3, Arterial 18.3 (*) Base Excess, Arterial -5.8 (*) O2 Sat, Arterial 93.6 (*) TCO2, Arterial 19.3 (*) All other components within normal limits Narrative: Test Performed by [facility], [address] [place] [address] BRAIN NATRIURETIC PEPTIDE Narrative: Test Performed by [facility], [address] [place], [place] [address] TROPONIN Narrative: Test Performed by [facility], [address] [place], [place] [address] LACTIC ACID, PLASMA Narrative: Test Performed by [facility], [address] [place], [place] [address] URINALYSIS POCT ARTERIAL All other labs were within normal range or not returned as of this dictation. EMERGENCY DEPARTMENT COURSE and DIFFERENTIALDIAGNOSIS/MDM: Vitals: Vitals: 10/28/20 1457 10/28/20 1745 BP: 94/68 Pulse: 97 Resp: 20 Temp: 97.6 ?F (36.4 ?C) TempSrc: Oral SpO2: 91% (!) 87% Medications sodium chloride flush 0.9 % injection 3 mL (has no administration in time range) 0.9 % sodium chloride infusion (has no administration in time range) 0.9 % sodium chloride bolus (1,000 mLs Intravenous New Bag 10/28/20 1713) 0.9 % sodium chloride bolus (has no administration in time range) potassium chloride (KLOR-CON M) extended release tablet 40 mEq (has no administration in time range) dexamethasone (DECADRON) injection 6 mg (6 mg Intravenous Given 10/28/20 171) MDM. Patient presents with hypoxia from an ECF, diagnosed with Covid 8 days ago, presents with a pulse oximetry on the room air of 87, on 2 L patient was 90-91%. No respiratory distress, was given steroids here will be admitted for redness severe and ongoing care. Discussed care with IMS. Renal function shows chronic kidney disease, unclear if this is at its patient a slide but he does have a history of stage III chronic kidney disease. CONSULTS: None PROCEDURES: Unless otherwise noted below, none Procedures FINAL IMPRESSION 1. Pneumonia due to COVID-19 virus 2. Hypoxia 3. Hypokalemia 4. Stage 3 chronic kidney disease, unspecified whether stage 3a or 3b CKD DISPOSITION/PLAN DISPOSITION Decision To Admit 10/28/2020 05:42:15 PM PATIENT REFERRED TO: No follow-up provider specified. DISCHARGE MEDICATIONS: New Prescriptions No medications on file (Please note: Portions of this note were completed with a voice recognition program. Efforts were made to edit thedictations but occasionally words and phrases are mis-transcribed.) Form [id number] NICKI Bustillo CNP (electronically signed) Emergency Medicine Provider NICKI Bustillo CNP 10/28/20 1750 Normal [facility] Hemogram (CBC) w/Auto Diffon 10-28-2020 Absolute Baso # 0.0 10*3/uL 0 - 0.2 10*3/uL [place] Absolute Neut # 3.1 10*3/uL 1.8 - 7 10*3/uL [place] Basophils/100 WBC (Bld) 0.7 % 0 - 2 % [place] Eosinophils (Bld) [#/Vol] 0.0 10*3/uL 0 - 0.5 10*3/uL [place] Eosinophils/100 WBC (Bld) 0.8 % Low 1 - 6 % [place] Erythrocyte distribution width (RBC) [Ratio] 14.0 % 11.5 - 14.5 % [place] Granulocytes/100 WBC (Bld) 67.1 % 40 - 80 % [place] Hematocrit (Bld) [Volume fraction] 38.1 % Low 40 - 52 % [place] Hemoglobin (Bld) [Mass/Vol] 12.9 g/dL Low 13 - 18 g/dL [place] Interpretation and review of laboratory results Abnormal [place] Lymphocytes (Bld) [#/Vol] 0.6 10*3/uL Low 1 - 4.3 10*3/uL [place] Lymphocytes/100 WBC (Bld) 13.6 % Low 20 - 40 % [place] MCH (RBC) [Entitic mass] 29.2 pg 26 - 34 pg [place] MCHC (RBC) [Mass/Vol] 33.9 % 32 - 36 % [place] MCV (RBC) [Entitic vol] 86.2 fL 80 - 98 fL [place] Monocytes (Bld) [#/Vol] 0.8 10*3/uL 0 - 0.8 10*3/uL [place] Monocytes/100 WBC (Bld) 17.8 % High 2 - 10 % [place] Platelet mean volume (Bld) [Entitic vol] 7.4 fL 7.4 - 10.4 fL [place] Platelets (Bld) [#/Vol] 223 10*3/uL 140 - 440 10*3/uL [place] RBC (Bld) [#/Vol] 4.42 10*6/uL 4.4 - 5.9 10*6/uL [place] WBC (Bld) [#/Vol] 4.6 10*3/uL 3.6 - 10.7 10*3/uL [place] Test Performed by [facility], [address] [place] [address] [place] Hemogram w/ Autodiffon 10-28 Abs Baso Cnt 0.0 10*3/uL Normal 0.0-0.2 [facility] Comment on above: Performed By: #### H EMOG, CMP3M, CRP2, LDH3, FIBGN, DDI2, APTT, FERR3 #### [facility] [address] [place] [place] [address] Abs Neutrophile Cnt 3.1 10*3/uL Normal 1.8-7.0 [facility] Comment on above: Performed By: #### H EMOG, CMP3M, CRP2, LDH3, FIBGN, DDI2, APTT, FERR3 #### [facility] [address] [place] [place] [address] Basophils/100 WBC (Bld) 0.7 % Normal 0.0-2.0 [facility] Comment on above: Performed By: #### H EMOG, CMP3M, CRP2, LDH3, FIBGN, DDI2, APTT, FERR3 #### [facility] [address] [place] [address] Eosinophils (Bld) [#/Vol] 0.0 10*3/uL Normal 0.0-0.5 [facility] Comment on above: Performed By: #### H EMOG, CMP3M, CRP2, LDH3, FIBGN, DDI2, APTT, FERR3 #### [facility] [address] [place] [address] Eosinophils/100 WBC (Bld) 0.8 % Low 1.0-6.0 [facility] Comment on above: Performed By: #### H EMOG, CMP3M, CRP2, LDH3, FIBGN, DDI2, APTT, FERR3 #### [facility] [address] [place] [address] Erythrocyte distribution width (RBC) [Ratio] 14.0 % Normal 11.5-14.5 [facility] Comment on above: Performed By: #### H EMOG, CMP3M, CRP2, LDH3, FIBGN, DDI2, APTT, FERR3 #### [facility] [address] [place] [address] Granulocytes/100 WBC (Bld) 67.1 % Normal 40.0-80.0 [facility] Comment on above: Performed By: #### H EMOG, CMP3M, CRP2, LDH3, FIBGN, DDI2, APTT, FERR3 #### [facility] [address] [place] [address] Hematocrit (Bld) [Volume fraction] 38.1 % Low 40.0-52.0 [facility] Comment on above: Performed By: #### H EMOG, CMP3M, CRP2, LDH3, FIBGN, DDI2, APTT, FERR3 #### [facility] [address] [place] [address] Hemoglobin (Bld) [Mass/Vol] 12.9 g/dL Low 13.0-18.0 [facility] Comment on above: Performed By: #### H EMOG, CMP3M, CRP2, LDH3, FIBGN, DDI2, APTT, FERR3 #### [facility] [address] [place] [address] Lymphocytes (Bld) [#/Vol] 0.6 10*3/uL Low 1.0-4.3 [facility] Comment on above: Performed By: #### H EMOG, CMP3M, CRP2, LDH3, FIBGN, DDI2, APTT, FERR3 #### [facility] [address] [place] [address] Lymphocytes/100 WBC (Bld) 13.6 % Low 20.0-40.0 [facility] Comment on above: Performed By: #### H EMOG, CMP3M, CRP2, LDH3, FIBGN, DDI2, APTT, FERR3 #### [facility] [address] [place] [address] MCH (RBC) [Entitic mass] 29.2 pg Normal 26.0-34.0 [facility] Comment on above: Performed By: #### H EMOG, CMP3M, CRP2, LDH3, FIBGN, DDI2, APTT, FERR3 #### [facility] [address] [place] [address] MCHC (RBC) [Mass/Vol] 33.9 % Normal 32.0-36.0 [facility] Comment on above: Performed By: #### H EMOG, CMP3M, CRP2, LDH3, FIBGN, DDI2, APTT, FERR3 #### [facility] [address] [place] [address] MCV (RBC) [Entitic vol] 86.2 fL Normal 80.0-98.0 [facility] Comment on above: Performed By: #### H EMOG, CMP3M, CRP2, LDH3, FIBGN, DDI2, APTT, FERR3 #### [facility] [address] [place] [address] Monocytes (Bld) [#/Vol] 0.8 10*3/uL Normal 0.0-0.8 [facility] Comment on above: Performed By: #### H EMOG, CMP3M, CRP2, LDH3, FIBGN, DDI2, APTT, FERR3 #### [facility] [address] [place] [address] Monocytes/100 WBC (Bld) 17.8 % High 2.0-10.0 [facility] Comment on above: Performed By: #### H EMOG, CMP3M, CRP2, LDH3, FIBGN, DDI2, APTT, FERR3 #### [facility] [address] [place] [address] Platelet mean volume (Bld) [Entitic vol] 7.4 fL Normal 7.4-10.4 [facility] Comment on above: Performed By: #### H EMOG, CMP3M, CRP2, LDH3, FIBGN, DDI2, APTT, FERR3 #### [facility] [address] [place] [address] Platelets (Bld) [#/Vol] 223 10*3/uL Normal 140-440 [facility] Comment on above: Performed By: #### H EMOG, CMP3M, CRP2, LDH3, FIBGN, DDI2, APTT, FERR3 #### [facility] [address] [place] [address] RBC (Bld) [#/Vol] 4.42 10*6/uL Normal 4.40-5.90 [facility] Comment on above: Performed By: #### H EMOG, CMP3M, CRP2, LDH3, FIBGN, DDI2, APTT, FERR3 #### [facility] [address] [place] [address] WBC (Bld) [#/Vol] 4.6 10*3/uL Normal 3.6-10.7 [facility] Comment on above: Performed By: #### H EMOG, CMP3M, CRP2, LDH3, FIBGN, DDI2, APTT, FERR3 #### [facility] [address] [place] [address] Lactic Acidon 10-28-2020 Lactate [Moles/Vol] 1.6 mmol/L Normal 0.7-2.0 [facility] Comment on above: Performed By: #### H EMOG, CMP3M, CRP2, LDH3, FIBGN, DDI2, APTT, FERR3 #### [facility] [address] [place] [address] Lactic Acid, Plasmaon 2019 Lactate [Moles/Vol] 1.6 mmol/L 0.7 - 2 mmol/L [facility], [place] NT pro BNPon 10-28-2020 Natriuretic peptide B (Bld) [Mass/Vol] 47 pg/mL Normal 0-125 [facility] Comment on above: Performed By: #### H EMOG, CMP3M, CRP2, LDH3, FIBGN, DDI2, APTT, FERR3 #### [facility] [address] [place] [address] Otheron 10-28-2020 Test Performed by [facility], [address] [place], [place] [id number] [place] [address] Test Performed by [facility], [address] [place], [place] [id number] [place] [address] POCT Arterialon 10-28-2020 Base Excess, Arterial -5.8 mmol/L Low -3 - 3 mmol/L [place] HCO3, Arterial 18.3 mmol/L Low 21 - 25 mmol/L [place] Interpretation and review of laboratory results Abnormal [place] Oxygen saturation in Blood 93.6 % Low 95 - 100 % [place] pCO2, Arterial 31.2 mm[Hg] Low 35 - 45 mm[Hg] [place] pH, Arterial 7.376 [place] pO2, Arterial 69.8 mm[Hg] Low 80 - 100 mm[Hg] [place] Sodium [Moles/Vol] 21 mmol/L [place] Comment on above: Performed by BHUPENDRAIA ID : [id number] [place], [place] TCO2, Arterial 19.3 mmol/L Low 23 - 27 mmol/L [place] Test Performed by [facility], [address] [place], [place] [id number] [place] [address] Procalcitoninon 10-28-2020 Interpretation See Below Normal [facility] Comment on above: Result Comment: PCT <0.50 = Low risk of severe sepsis and/or septic shock. PCT >2.00 = High risk of severe sepsis and/or septic shock. Performed By: #### H EMOG, CMP3M, CRP2, LDH3, FIBGN, DDI2, APTT, FERR3 #### [facility] [address] [place] [address] Respiratory Panel, Molecular , with COVID-19 (Restricted: peds pts or suitable admitted adults)on 10-28-2020 Respiratory Panel Molecular, with COVID NEGATIVE: No targets were detected by the [facility] Upper Respiratory Pathogens PCR Panel. _ Expected Result: Not Detected The [facility] Upper Respiratory Pathogens PCR Panel can detect the following targets: SARS-CoV-2, Adenovirus, Coronavirus 229E, Coronavirus HKU1, Coronavirus NL63, Coronavirus OC43, Human Metapneumovirus, Human Rhinovirus/Enterovirus, Influenza A, Influenza B, Parainfluenza Virus 1, Parainfluenza Virus 2, Parainfluenza Virus 3, Parainfluenza Virus 4, Respiratory Syncytial Virus, Bordetella pertussis, Bordetella parapertussis, Chlamydia pneumoniae, Mycoplasma pneumoniae. Negative results do not preclude SARS-CoV-2 infection and should not be used as the sole basis for treatment or other patient management decisions. This assay was developed by [employer] and distributed under an Emergency Use Authorization (EUA) granted by the FDA for the qualitative detection of SARS-CoV-2 nucleic acid. Provider and patient fact sheets can be found at https://www.fda.gov/media/ 826958/download and https://www.fda.gov/media/ 257725/download. [place] Test Performed by [facility], [address] [place] [address] [place] Troponin Ion 10-28-2020 Troponin I.cardiac [Mass/Vol] ng/mL Normal 0.000-0.03 4 [facility] Comment on above: Result Comment: . Performed By: #### H EMOG, CMP3M, CRP2, LDH3, FIBGN, DDI2, APTT, FERR3 #### [facility] [address] [place] [address] Troponin x1on 10-28-2020 Troponin I.cardiac [Mass/Vol] ng/mL 0 - 0.034 ng/mL [place] Comment on above: . Urinalysison 10-28-2020 AMORPHOUS CRYSTAL Few Abnormal Negative /[HPF] [place] Comment on above: . Appearance (U) Clear Clear NA [place] Comment on above: . Bacteria, UA Few Abnormal Negative /[HPF] [place] Comment on above: . Bilirubin Urine Negative Negative mg/dL [place] Comment on above: . Color (U) Yellow Lt. Yellow NA [place] Comment on above: . Glucose, Ur Normal Normal (<70) mg/dL [place] Comment on above: . Granular Casts, UA 0-2 Abnormal Negative /[LPF] [place] Comment on above: . Hyaline Casts, UA 3-5 Abnormal Negative /[LPF] [place] Comment on above: . Interpretation and review of laboratory results Abnormal [place] Ketones Ql (U) Negative Negative mg/dL [place] Comment on above: . LEUKOCYTES, UA Negative Negative Mary/uL [place] Comment on above: . Mucous Threads Few Negative /[LPF] [place] Comment on above: . Nitrite, Urine Negative Negative NA [place] Comment on above: . Non-Squamous Epithelial <1 Abnormal Nega tive /[HPF] [place] Comment on above: . Occult Blood,Urine Negative Negative mg/dL [place] Comment on above: . pH (U) 5.5 [pH] [place] Comment on above: . Protein (U) [Mass/Vol] 20 mg/dL Abnormal Negative [place] Comment on above: . RBC (U) [#/Vol] 0-2 0 - 2 /[HPF] [place] Comment on above: . Specific [place], Urine 1.015 M [place] Comment on above: . Squam Epithel, UA 0-2 3 - 5 /[HPF] [place] Comment on above: . Urobilinogen, Urine Normal Normal (0-1) mg/dL [place] Comment on above: . WBC, UA 0-2 0 - 5 /[HPF] [place] Comment on above: . Test Performed by [facility], [address], [place], [place] [address] [place] XR CHEST PORTABLEon 10-28-20 20 [facility], [facility] Incoming Radiology Results From [facility] - 10/28/2020 3:21 PM EST Patient Name: REGGIE LEÓN Diagnostic Radiology ACCESSION EXAM DATE/TIME PROCEDURE ORDERING PROVIDER [id number] 10/28/2020 15:05 EST CR Chest Portable BALAJI SILVER DANIEL M CPT code 62165 Reason For Exam (CR Chest Portable) dyspnea Report EXAM TYPE: RADIOLOGIC EXAMINATION, CHEST, SINGLE VIEW FRONTAL (CXR SINGLE VIEW) EXAM DATE AND TIME: 10/28/2020 3:05 PM EST INDICATION: Respiratory distress COMPARISON: None TECHNIQUE: A single frontal view of the thorax was obtained and reviewed. Special views: None. IMPRESSION: 1. Lines/Tubes/Devices/Hardwa re: None. Please confirm position/function of devices/catheters clinically. 2. Lungs: Abnormal lung fisher. Coarse interstitial prominence suspicious for interstitial infiltrate or edema. Consider pneumonia or CHF in the appropriate setting. There is no consolidation or major volume loss. 3. Pleura: No significant effusion. No significant pneumothorax. 4. Heart and mediastinum: Limited due to technique. 5. Upper abdomen: No acute process seen. 6. Thorax:No acute bony process Report Dictated on --- Final --- Dictating Physician: MD HAY JOHN Signed Date and Time: 10/28/2020 3:20 pm Signed by: MD HAY JOHN Transcribed Date and Time: 10/28/2020 3:21 [place] Patient Name: REGGIE WILSON Diagnostic Radiology ACCESSION EXAM DATE/TIME PROCEDURE ORDERING PROVIDER [id number] 10/28/2020 15:05 EST CR Chest Portable BALAJI SILVER DANIEL M CPT code 89296 Reason For Exam (CR Chest Portable) dyspnea Report EXAM TYPE: RADIOLOGIC EXAMINATION, CHEST, SINGLE VIEW FRONTAL (CXR SINGLE VIEW) EXAM DATE AND TIME: 10/28/2020 3:05 PM EST INDICATION: Respiratory distress COMPARISON: None TECHNIQUE: A single frontal view of the thorax was obtained and reviewed. Special views: None. IMPRESSION: 1. Lines/Tubes/Devices/Hardwa re: None. Please confirm position/function of devices/catheters clinically. 2. Lungs: Abnormal lung fisher. Coarse interstitial prominence suspicious for interstitial infiltrate or edema. Consider pneumonia or CHF in the appropriate setting. There is no consolidation or major volume loss. 3. Pleura: No significant effusion. No significant pneumothorax. 4. Heart and mediastinum: Limited due to technique. 5. Upper abdomen: No acute process seen. 6. Thorax:No acute bony process Report Dictated on --- Final --- Dictating Physician: MD HAY JOHN Signed Date and Time: 10/28/2020 3:20 pm Signed by: MD HAY JOHN Transcribed Date and Time: 10/28/2020 3:21 [place] BMP with eGFRon 05-05-2020 Age - Reported 54 years Normal [facility] [place] Comment on above: Performed By: #### 2 [id number] #### [facility] [place],[address] [place] [address] Anion gap [Moles/Vol] 11 mmol/L Normal 10 - 20 [facility] Comment on above: Performed By: #### 2 54637 #### [facility] [place],[address] [place] [address] Calcium [Mass/Vol] 9.5 mg/dL Normal 8.6 - 10.2 [facility] [place] Comment on above: Performed By: #### 2 73263 #### [facility] [place],[address] [place] [address] CO2 [Moles/Vol] 24.7 mmol/L Normal 21.0 - 31.0 [facility] [place] Comment on above: Performed By: #### 2 17624 #### [facility] [place],[address] [place] [address] GFR/1.73 sq M predicted among non-blacks MDRD (S/P/Bld) [Vol rate/Area] 27 ML/MINUTE Low 60 - 999 [facility] [place] Comment on above: Performed By: #### 2 25925 #### [facility] [place],[address] [place] [address] GFR/1.73 sq M predicted among non-blacks MDRD (S/P/Bld) [Vol rate/Area] 33 ML/MINUTE Low 60 - 999 [facility] [place] Comment on above: Result Comment: ACCO RDING TO THE NATIONAL KIDNEY DISEASE EDUCATION PROGRAM(NKDE), A NORMAL eGFR IS A VALUE GREATER THAN OR EQUAL TO 60 ML/MIN/1.73 SQ METERS. CHRONIC KIDNEY DISEASE: <60mL/MIN/1.73 SQ METERS KIDNEY FAILURE: <15mL/MIN/1.73 SQ METERS THIS TEST SHOULD ONLY BE USED FOR PATIENTS 18 YEARS OF AGE AND OLDER. Performed By: #### 2 25992 #### [address] [address] GFR/1.73 sq M predicted among non-blacks MDRD (S/P/Bld) [Vol rate/Area] Normal [facility] [place] Comment on above: Result Comment: BASI C METABOLIC PANEL Performed By: #### 2 48333 #### [address] [address] Glucose [Mass/Vol] 113 mg/dL High 74 - 106 [facility] [place] Comment on above: Performed By: #### 2 38780 #### [address] [address] Potassium [Moles/Vol] 4.1 mmol/L Normal 3.5 - 5.1 [facility] Comment on above: Performed By: #### 2 17552 #### [address] [address] Urea nitrogen [Mass/Vol] 24 mg/dL High 6 - 20 [facility] [place] Comment on above: Performed By: #### 2 84815 #### [address] [address] CBC + DIFFon 05-05-2020 Basophils (Bld) [#/Vol] 0.10 x10EE3/UL Normal 0. 00 - 0.10 [facility] [place] Comment on above: Performed By: #### 2 02383 #### [facility] [place],[address] [place] [address] Basophils/100 WBC (Bld) 0.9 % Normal 0.0 - 2.0 [facility] Comment on above: Performed By: #### 2 70687 #### [facility] [place],[address] [place] [address] CBC + DIFF Normal [facility] Comment on above: Result Comment: CBC- COMPLETE BLOOD COUNT Performed By: #### 2 69138 #### [facility] [place],[address] [place] [address] Eosinophils (Bld) [#/Vol] 0.40 x10EE3/UL Normal 0.00 - 0.50 [facility] [place] Comment on above: Performed By: #### 2 52153 #### [facility] [place],[address] [place] [address] Eosinophils/100 WBC (Bld) 5.4 % Normal 0.0 - 7.0 [facility] [place] Comment on above: Performed By: #### 2 14667 #### [facility] [place],[address] [place], [place] [id number] Erythrocyte distribution width (RBC) [Ratio] 12.7 % Normal 12.0 - 15.6 [facility] [place] Comment on above: Performed By: #### 2 06576 #### [facility] [place],[address] [place], [place] [phone] Hematocrit (Bld) [Volume fraction] 37.0 % Low 40.0 - 52.0 [facility] [place] Comment on above: Performed By: #### 2 50659 #### [facility] [place],[address] [place] [address] Hemoglobin (Bld) [Mass/Vol] 13.0 g/dL Normal 13.0 - 17.5 [facility] [place] Comment on above: Performed By: #### 2 89082 #### [facility] [place],[address] [place] [address] Lymphocytes (Bld) [#/Vol] 1.50 x10EE3/UL Normal 0.80 - 2.80 [facility] [place] Comment on above: Performed By: #### 2 92291 #### [facility] [place],[address] [place] [address] Lymphocytes/100 WBC (Bld) 18.7 % Low 20.0 - 45.0 [facility] [place] Comment on above: Performed By: #### 2 63463 #### [facility] [place],[address] [place] [address] MANUAL DIFF N/A Normal [facility] Comment on above: Performed By: #### 2 13889 #### [facility] [place],[address] [place] [address] MCH (RBC) [Entitic mass] 31 pg Normal 27 - 33 [facility] [place] Comment on above: Performed By: #### 2 66154 #### [facility] [place],[address] [place] [address] MCHC (RBC) [Mass/Vol] 35 X10 3 Normal 32 - 36 [facility] Comment on above: Performed By: #### 2 23901 #### [facility] [place],[address] [place] [address] MCV (RBC) [Entitic vol] 87 fL Normal 81 - 98 [facility] Comment on above: Performed By: #### 2 26667 #### [facility] [facility],[address] [place] [address] 91034 Monocytes (Bld) [#/Vol] 1.20 x10EE3/UL High 0. 20 - 1.00 [facility] Comment on above: Performed By: #### 2 78832 #### [facility],[address] [place] [address] 19858 MONOS % 14.8 % High 0.0 - 10.0 [facility] Comment on above: Performed By: #### 2 16068 #### [facility],[address] [place] [address] 47006 Morphology Crispin (Bld) [Interp] N/A Normal [facility] Comment on above: Performed By: #### 2 20360 #### [facility],[address] [place] [address] 06618 Neutrophils (Bld) [#/Vol] 4.80 x10EE3/UL Normal 1.50 - 7.10 [facility] Comment on above: Performed By: #### 2 61373 #### [facility],[address] [place] [address] 96273 Neutrophils/100 WBC (Bld) 60.2 % Normal 46.0 - 76.0 [facility] Comment on above: Performed By: #### 2 73041 #### [facility],[address] [place] [address] 12332 Platelet mean volume (Bld) [Entitic vol] 7.2 fL Normal 6.4 - 10.5 [facility] Comment on above: Result Comment: AUTO MATED DIFFERENTIAL Performed By: #### 2 40144 #### [address] [address] Platelets (Bld) [#/Vol] 286 x10EE3/UL Normal 150 - 450 [facility] Comment on above: Performed By: #### 2 00300 #### [facility],[address] [place] [address] 06643 RBC (Bld) [#/Vol] 4.24 x 10EE6/UL Low 4.50 - 6.00 [facility] Comment on above: Performed By: #### 2 11047 #### [facility],[address] [place] [address] 45601 WBC (Bld) [#/Vol] 8.0 x 10EE3/UL Normal 4.5 - 10.8 [facility] Comment on above: Performed By: #### 2 82788 #### [facility],[address] [place] [address] 44050 CULTURE URINEon 05-05-2020 CULTURE URINE CULTURE URINE _URINE CULTURE_ M I C R O B I O L O G Y R E P O R T FINAL ------- Antimicrobial Susceptibility and Organism Identification Report -------- Specimen Number : [id number] Requested : 05/05/20 Specimen Source : URINE Collected : 05/05/20 03:00 Ar[place]ondo of Isolation : MEME HUANG Received : 05/05/20 03:00 Requesting Physician : FLORECITA -- Patient/Specimen Tests and Comments Specimen Comments -------- -------- FINAL REPORT: NO GROWTH AT 48 HOURS -- Tech : Source : URINE ID # : [id number] FINAL Report Date : / / : Collected : 05/05/20 03:00 05/07/20.1244.KLS. 05/06/20.0705.JLN. 05/07/20.1245.KLS.COMPLETE Normal [facility] Comment on above: Performed By: #### 2 03798 #### [facility],[address] [place] [address] LITHIUMon 05-05-2020 [place] [Moles/Vol] 0.9 mmol/L Normal 0.6 - 1.2 [facility] Comment on above: Performed By: #### 2 02815 #### [facility],[address] [place] [address] RENAL FUNCTION PANELon 05-05 Albumin [Mass/Vol] 3.3 g/dL Low 3.4 - 4.8 [facility] Comment on above: Performed By: #### 2 84310 #### [facility],[address] [place] [address] B/C RATIO 10 ratio Normal 0 - 30 [facility] Comment on above: Performed By: #### 2 63119 #### [facility],[address] [place] [address] Chloride [Moles/Vol] 107 mmol/L Normal 98 - 107 [facility] Comment on above: Performed By: #### 2 07234 #### [facility],[address] [place] [address] Creatinine [Mass/Vol] 2.5 mg/dL High 0.7 - 1.3 [facility] Comment on above: Performed By: #### 2 24903 #### [facility],[address] [place] [address] Phosphate [Mass/Vol] 4.9 mg/dL Normal 2.7 - 4.9 [facility] Comment on above: Performed By: #### 2 90004 #### [facility],[address] [place], [place] [phone] RENAL FUNCTION PANEL Normal [facility] Comment on above: Result Comment: JESSICA L FUNCTION PANEL Performed By: #### 2 22663 #### [facility],[address] [place] [address] Sodium [Moles/Vol] 139 mmol/L Normal 136 - 145 [facility] Comment on above: Performed By: #### 2 37708 #### [facility],[address] [place] [address] URINALYSISon 05-05-2020 Bilirubin [Mass/Vol] Negative Normal NORMAL: NEGATIVE [facility] Comment on above: Performed By: #### 2 72956 #### [facility],[address] [place], [place] [phone] Blood Negative Normal NORMAL: NEGATIVE [facility] Comment on above: Performed By: #### 2 11245 #### [facility],[address] [place], [place] [phone] Clarity (U) clear Normal NORMAL: CLEAR [facility] Comment on above: Performed By: #### 2 11794 #### [facility],[address] [place] [address] 68690 Color (U) yellow Normal NORMAL: YELLOW [facility] Comment on above: Performed By: #### 2 61581 #### [facility],[address] [place] [address] 64629 Glucose [Mass/Vol] NORM Normal NORMAL: NORMAL [facility] Comment on above: Performed By: #### 2 39276 #### [facility],[address] [place] [address] 24170 Ketone Negative Normal NORMAL: NEGATIVE [facility] Comment on above: Performed By: #### 2 22250 #### [facility],[address] [place] [address] Microscopic NOT INDICATED Normal [facility] Comment on above: Performed By: #### 2 76483 #### [facility],[address] [place] [address] Nitrite Ql (U) Negative Normal NORMAL: NEGATIVE [facility] Comment on above: Performed By: #### 2 12418 #### [facility],[address] [place] [address] pH (Bld) 6 Normal NORMAL: 5.0-8.0 [facility] Comment on above: Performed By: #### 2 04750 #### [facility],[address] [place] [address] Protein (U) [Mass/Vol] Negative Normal JENN L: NEGATIVE [facility] Comment on above: Performed By: #### 2 07204 #### [facility],[address] [place] [address] Sp Hillman 1.020 Normal NORMAL: 1.010-1.03 0 [facility] Comment on above: Performed By: #### 2 97813 #### [facility],[address] [place] [address] Specimen type Nom (Spec) UNSPECIFIED Normal [facility] Comment on above: Performed By: #### 2 30316 #### [facility],[address] [place] [address] Urobilinog NORM Normal NORMAL: NORMAL [facility] Comment on above: Performed By: #### 2 04977 #### [facility],[address] [place] [address] WBC (Bld) [#/Vol] Negative Normal NORMAL: NEGATIVE [facility] Comment on above: Performed By: #### 2 15527 #### [facility],[address] [place], [place] [phone] CBC + DIFFon 04-08-2020 Basophils (Bld) [#/Vol] 0.10 x10EE3/UL Normal 0. 00 - 0.10 [facility] Comment on above: Performed By: #### 2 31079 ####[facility],[address] [place] [address] 51708 Basophils/100 WBC (Bld) 1.2 % Normal 0.0 - 2.0 [facility] Comment on above: Performed By: #### 2 42013 ####[facility],[address] [place] [address] CBC + DIFF Normal [facility] Comment on above: Result Comment: CBC- COMPLETE BLOOD COUNT Performed By: #### 2 02529 ####[facility],[address] [place] [address] Eosinophils (Bld) [#/Vol] 0.40 x10EE3/UL Normal 0.00 - 0.50 [facility] Comment on above: Performed By: #### 2 19543 ####[facility],[address] [place] [address] 01132 Eosinophils/100 WBC (Bld) 4.3 % Normal 0.0 - 7.0 [facility] Comment on above: Performed By: #### 2 23553 ####[facility],[address] [place], [place] [phone] Erythrocyte distribution width (RBC) [Ratio] 12.9 % Normal 12.0 - 15.6 [facility] Comment on above: Performed By: #### 2 28401 ####[facility],[address] [place] [address] 19548 Hematocrit (Bld) [Volume fraction] 38.7 % Low 40.0 - 52.0 [facility] Comment on above: Performed By: #### 2 30847 ####[facility],[address] [place] [address] 50646 Hemoglobin (Bld) [Mass/Vol] 13.4 g/dL Normal 13.0 - 17.5 [facility] Comment on above: Performed By: #### 2 14437 ####[facility],[address] [place] [address] 95844 Lymphocytes (Bld) [#/Vol] 1.80 x10EE3/UL Normal 0.80 - 2.80 [facility] Comment on above: Performed By: #### 2 98124 ####[facility],[address] [place], [place] [phone] Lymphocytes/100 WBC (Bld) 21.9 % Normal 20.0 - 45.0 [facility] Comment on above: Performed By: #### 2 61128 ####[facility],[address] [place], [place] [phone] MANUAL DIFF N/A Normal [facility] Comment on above: Performed By: #### 2 25005 ####[place] [id number] MCH (RBC) [Entitic mass] 31 pg Normal 27 - 33 [facility] Comment on above: Performed By: #### 2 39438 ####[address] [address] MCHC (RBC) [Mass/Vol] 35 X10 3 Normal 32 - 36 [facility] Comment on above: Performed By: #### 2 10136 ####[facility],[address] [place] [address] 72722 MCV (RBC) [Entitic vol] 88 fL Normal 81 - 98 [facility] Comment on above: Performed By: #### 2 45648 ####[address] [address] Monocytes (Bld) [#/Vol] 1.20 x10EE3/UL High 0. 20 - 1.00 [facility] Comment on above: Performed By: #### 2 52438 ####[facility],[address] [place] [address] 31740 MONOS % 14.1 % High 0.0 - 10.0 [facility] Comment on above: Performed By: #### 2 96208 ####[facility],[address] [place] [address] 46496 Morphology Crispin (Bld) [Interp] N/A Normal [facility] Comment on above: Performed By: #### 2 79996 ####[facility],[address] [place] [address] 39878 Neutrophils (Bld) [#/Vol] 4.90 x10EE3/UL Normal 1.50 - 7.10 [facility] Comment on above: Performed By: #### 2 61433 ####[facility],[address] [place] [address] 38485 Neutrophils/100 WBC (Bld) 58.5 % Normal 46.0 - 76.0 [facility] Comment on above: Performed By: #### 2 63131 ####[facility],[address] [place] [address] 75139 Platelet mean volume (Bld) [Entitic vol] 7.4 fL Normal 6.4 - 10.5 [facility] Comment on above: Result Comment: AUTO MATED DIFFERENTIAL Performed By: #### 2 54205 ####[address] [address] Platelets (Bld) [#/Vol] 268 x10EE3/UL Normal 150 - 450 [facility] Comment on above: Performed By: #### 2 15140 ####[facility],[address] [place] [address] 77305 RBC (Bld) [#/Vol] 4.41 x 10EE6/UL Low 4.50 - 6.00 [facility] Comment on above: Performed By: #### 2 30438 ####[address] [address] WBC (Bld) [#/Vol] 8.3 x 10EE3/UL Normal 4.5 - 10.8 Gerald gregg [facility] Comment on above: Performed By: #### 2 63285 ####[facility],[address] [place] [address] 60403 CULTURE URINEon 04-08-2020 CULTURE URINE CULTURE URINE _URINE CULTURE_ M I C R O B I O L O G Y R E P O R T FINAL ------- Antimicrobial Susceptibility and Organism Identification Report -------- Specimen Number : [id number] Requested : 04/08/20 Specimen Source : CLEAN CATCH URINE Collected : 04/08/20 06:28 [place] of Isolation : MEME HUANG Received : 04/08/20 06:28 Requesting Physician : FLORECITA -- Patient/Specimen Tests and Comments Specimen Comments -------- -------- FINAL REPORT: NO GROWTH AT 48 HOURS -- Tech : Source : CLEAN CATCH URINE ID # : [id number] FINAL Report Date : / / : Collected : 04/08/20 06:28 04/10/20.1059.BKO. 04/09/20.1214.KLS. 04/10/20.1059.BKO.COMPLETE Normal [facility] Comment on above: Performed By: #### 2 15697 #### [place] [address] HEPATIC FUNCTION PANELon Albumin [Mass/Vol] 3.4 g/dL Normal 3.4 - 4.8 [facility] Comment on above: Performed By: #### 2 66623 ####[facility],[address] [place] [address] 20781 Performed By: #### 2 62083 ####[facility],[address] [place] [address] 41789 ALK PHOS 65 U/L Normal 38 - 126 [facility] Comment on above: Performed By: #### 2 85921 ####[address] [address] ALT/SGPT 16 U/L Normal 10 - 40 [facility] Comment on above: Performed By: #### 2 97959 ####[facility],[address] [place] [address] 34205 AST/SGOT 10 U/L Low 13 - 39 [facility] Comment on above: Performed By: #### 2 30885 ####[address] [address] Bilirubin [Mass/Vol] 0.4 mg/dL Normal 0.0 - 1.5 [facility] Comment on above: Performed By: #### 2 67983 ####[facility],[address] [place] [address] 02165 Bilirubin.direct [Mass/Vol] 0.1 mg/dL Normal 0.0 - 0.1 [facility] Comment on above: Performed By: #### 2 67472 ####[facility],[address] [place] [address] 68079 HEPATIC FUNCTION PANEL Normal [facility] Comment on above: Result Comment: HEPA TIC FUNCTION PROFILE Performed By: #### 2 38074 ####[facility],[address] [place] [address] 75901 Protein [Mass/Vol] 5.4 g/dL Low 6.4 - 8.3 [facility] Comment on above: Performed By: #### 2 61014 ####[facility],[address] [place] [address] 24302 LITHIUMon 04-08-2020 [place] [Moles/Vol] 0.7 mmol/L Normal 0.6 - 1.2 [facility] Comment on above: Performed By: #### 2 44117 ####[facility],[address] [place] [address] 93829 RENAL FUNCTION PANELon 04-08 B/C RATIO 11 ratio Normal 0 - 30 [facility] Comment on above: Performed By: #### 2 70953 ####[facility],[address] [place] [address] 39124 Calcium [Mass/Vol] 9.5 mg/dL Normal 8.6 - 10.2 [facility] Comment on above: Performed By: #### 2 83526 ####[facility],[address] [place] [address] 13400 Chloride [Moles/Vol] 105 mmol/L Normal 98 - 107 [facility] Comment on above: Performed By: #### 2 33863 ####[facility],[address] [place] [address] 98210 CO2 [Moles/Vol] 25.4 mmol/L Normal 21.0 - 31.0 [facility] Comment on above: Performed By: #### 2 54261 ####[facility],[address] [place] [address] 45119 Creatinine [Mass/Vol] 2.1 mg/dL High 0.7 - 1.3 [facility] Comment on above: Performed By: #### 2 70935 ####[facility],[address] [place] [address] 57118 Glucose [Mass/Vol] 105 mg/dL Normal 74 - 106 [facility] Comment on above: Performed By: #### 2 47908 ####[facility],[address] [place] [address] 08930 Phosphate [Mass/Vol] 5.2 mg/dL High 2.7 - 4.9 [facility] Comment on above: Performed By: #### 2 03639 ####[facility],[address] [place] [address] 54666 Potassium [Moles/Vol] 3.8 mmol/L Normal 3.5 - 5.1 [facility] Comment on above: Performed By: #### 2 57040 ####[facility],[address] [place] [address] 32267 RENAL FUNCTION PANEL Normal [facility] Comment on above: Result Comment: JESSICA L FUNCTION PANEL Performed By: #### 2 55475 ####[facility],[address] [place] [address] 17837 Sodium [Moles/Vol] 139 mmol/L Normal 136 - 145 [facility] Comment on above: Performed By: #### 2 12484 ####[facility],[address] [place] [address] 49267 Urea nitrogen [Mass/Vol] 23 mg/dL High 6 - 20 [facility] Comment on above: Performed By: #### 2 82433 ####[facility],[address] [place] [address] 25182 URINALYSISon 04-08-2020 Bilirubin [Mass/Vol] Negative Normal NORMAL: NEGATIVE [facility] Comment on above: Performed By: #### 2 66050 #### [facility],[address] [place] [address] 96644 Blood Negative Normal NORMAL: NEGATIVE [facility] Comment on above: Performed By: #### 2 30177 #### [facility],[address] [place] [address] 01966 Clarity (U) clear Normal NORMAL: CLEAR [facility] Comment on above: Performed By: #### 2 18152 #### [facility],[address] [place], [place] [phone] Color (U) p.yel Normal NORMAL: YELLOW [facility] Comment on above: Performed By: #### 2 89834 #### [facility],[address] [place] [address] 42071 Glucose [Mass/Vol] NORM Normal NORMAL: NORMAL [facility] Comment on above: Performed By: #### 2 06962 #### [facility],[address] [place] [address] 09616 Ketone Negative Normal NORMAL: NEGATIVE [facility] Comment on above: Performed By: #### 2 23558 #### [facility],[address] [place] [address] 60578 Microscopic NOT INDICATED Normal [facility] Comment on above: Performed By: #### 2 43446 #### [facility],[address] [place] [address] 32579 Nitrite Ql (U) Negative Normal NORMAL: NEGATIVE [facility] Comment on above: Performed By: #### 2 54746 #### [facility],[address] [place] [address] pH (Bld) 6 Normal NORMAL: 5.0-8.0 [facility] Comment on above: Performed By: #### 2 07957 #### [facility],[address] [place] [address] Protein (U) [Mass/Vol] Negative Normal JENN L: NEGATIVE [facility] Comment on above: Performed By: #### 2 31546 #### [facility],[address] [place] [address] Sp Hillman 1.020 Normal NORMAL: 1.010-1.03 0 [facility] Comment on above: Performed By: #### 2 95489 #### [facility],[address] [place] [address] Specimen type Nom (Spec) Clean catch Normal [facility] Comment on above: Performed By: #### 2 36595 #### [facility],[address] [place] [address] Urobilinog NORM Normal NORMAL: NORMAL [facility] Comment on above: Performed By: #### 2 08767 #### [place] [id number] WBC (Bld) [#/Vol] Negative Normal NORMAL: NEGATIVE [facility] Comment on above: Performed By: #### 2 74804 #### [facility],[address] [place], [place] [phone] URINE CREATININE AND PROTEIN RATIOon 04-08-2020 CREATININE UR 146.3 mg/dl Normal [facility] Comment on above: Performed By: #### 2 22219 ####[place] [id number] PC RATIO 0.06 mg/dL Normal 0.00 - 10.00 [facility] Comment on above: Performed By: #### 2 98926 ####[facility],[address] [place], [place] [phone] Protein (U) [Mass/Vol] 9.00 mg/dL Normal 0.00 - 10.00 [facility] Comment on above: Performed By: #### 2 54499 ####[address] [address] HGB A1C [CCL]on 03-18-2020 HbA1c (Bld) [Mass fraction] 117 mg/dL Normal [facility] Comment on above: Result Comment: eAG: (Estimated average glucose) is a calculated value from HgbA1c and is employee relations representative of the average blood glucose level in the last 2-3 month period. [facility] [address] [place] [address] Dre Gilliland III, M.D. [id number] Performed By: #### 2 76089 ####[place] [id number] HbA1c (Bld) [Mass fraction] 5.7 % High 4.3-5.6 [facility] Comment on above: Result Comment: [employer] [place] [employer] guidelines indicate that patients with HgbA1c in the range 5.7-6.4% are at increased risk for development of diabetes, and intervention by lifestyle modification may be beneficial. HgbA1c greater or equal to 6.5% is considered diagnostic of diabetes. Performed By: #### 2 27973 ####[address] [address] Hemoglobin A1con 03-18-2020 HbA1c (Bld) [Mass fraction] 5.7 % High 4.3-5.6 [facility] Comment on above: Performed By: #### H BA1C #### [facility] Routine Lab [address] [place] [id number] HbA1c (Bld) [Mass fraction] 117 mg/dL Normal [facility] Comment on above: Performed By: #### H BA1C #### [facility] Routine Lab [address] [place] [id number] LIPID PROFILEon 03-17-2020 Cholesterol [Mass/Vol] 133 mg/dL Normal 0 - 200 [facility] Comment on above: Performed By: #### 2 83596 ####[facility],[address] [place] [address] 16139 Cholesterol in HDL [Mass/Vol] 29 mg/dL Low 40 - 60 [facility] Comment on above: Performed By: #### 2 19422 ####[facility],[address] [place] [address] 34482 Cholesterol in LDL [Mass/Vol] 59 mg/dL Normal 0 - 129 [facility] Comment on above: Performed By: #### 2 87494 ####[facility],[address] [place] [address] 99613 Cholesterol.total/Choles terol in HDL [Mass ratio] 4.6 {ratio} Normal 0.0 - 5.0 [facility] Comment on above: Performed By: #### 2 01638 ####[facility],[address] [place] [address] 57910 Lipid 1996 panel Normal [facility] Comment on above: Result Comment: LIPI D PROFILE Performed By: #### 2 38302 ####[facility],[address] [place] [address] 41129 Triglyceride [Mass/Vol] 224 mg/dL High 0 - 150 [facility] Comment on above: Performed By: #### 2 79780 ####[facility],[address] [place] [address] 62826 TSHon 03-17-2020 TSH Qn 0.99 uIU/ml Normal 0.34 - 5.60 [facility] Comment on above: Performed By: #### 2 11513 ####[facility],[address] [place] [address] 76736 URINE CREATININE AND PROTEIN RATIOon 03-11-2020 CREATININE UR 65.8 mg/dl Normal [facility] Comment on above: Performed By: #### 2 01706 ####[facility],[address] [place] [address] 02973 PC RATIO 0.06 mg/dL Normal 0.00 - 10.00 [facility] Comment on above: Performed By: #### 2 00573 ####[facility],[address] [place], [place] [phone] Protein (U) [Mass/Vol] mg/dL Normal 0.00 - 10.00 [facility] Comment on above: Performed By: #### 2 25714 ####[facility],[address] [place], [place] [id number] CBC + DIFFon 03-10-2020 Basophils (Bld) [#/Vol] 0.10 x10EE3/UL Normal 0. 00 - 0.10 [facility] Comment on above: Performed By: #### 2 06957 #### [address] [address] Basophils/100 WBC (Bld) 1.3 % Normal 0.0 - 2.0 [facility] Comment on above: Performed By: #### 2 56043 #### [place] [address] CBC + DIFF Normal [facility] Comment on above: Result Comment: CBC- COMPLETE BLOOD COUNT Performed By: #### 2 82277 #### [address] [address] Eosinophils (Bld) [#/Vol] 0.40 x10EE3/UL Normal 0.00 - 0.50 [facility] Comment on above: Performed By: #### 2 94490 #### [facility],[address] [place] [address] 40445 Eosinophils/100 WBC (Bld) 5.7 % Normal 0.0 - 7.0 [facility] Comment on above: Performed By: #### 2 59476 #### [place] [address] Erythrocyte distribution width (RBC) [Ratio] 13.3 % Normal 12.0 - 15.6 [facility] Comment on above: Performed By: #### 2 51016 #### [facility],[address] [place] [address] Hematocrit (Bld) [Volume fraction] 40.4 % Normal 40.0 - 52.0 [facility] Comment on above: Performed By: #### 2 62618 #### [facility],[address] [place] [address] Hemoglobin (Bld) [Mass/Vol] 13.8 g/dL Normal 13.0 - 17.5 [facility] Comment on above: Performed By: #### 2 02916 #### [facility],[address] [place] [address] Lymphocytes (Bld) [#/Vol] 1.30 x10EE3/UL Normal 0.80 - 2.80 [facility] Comment on above: Performed By: #### 2 16558 #### [facility],[address] [place] [address] Lymphocytes/100 WBC (Bld) 20.1 % Normal 20.0 - 45.0 [facility] Comment on above: Performed By: #### 2 59357 #### [facility],[address] [place] [address] MANUAL DIFF N/A Normal [facility] Comment on above: Performed By: #### 2 57685 #### [facility],[address] [place] [address] 07880 MCH (RBC) [Entitic mass] 30 pg Normal 27 - 33 [facility] Comment on above: Performed By: #### 2 28854 #### [facility],[address] [place] [address] 13791 MCHC (RBC) [Mass/Vol] 34 X10 3 Normal 32 - 36 [facility] Comment on above: Performed By: #### 2 44982 #### [facility],[address] [place] [address] 00216 MCV (RBC) [Entitic vol] 88 fL Normal 81 - 98 [facility] Comment on above: Performed By: #### 2 42624 #### [facility],[address] [place] [address] 72813 Monocytes (Bld) [#/Vol] 0.90 x10EE3/UL Normal 0. 20 - 1.00 [facility] Comment on above: Performed By: #### 2 12625 #### [facility],[address] [place] [address] 18620 MONOS % 13.7 % High 0.0 - 10.0 [facility] Comment on above: Performed By: #### 2 94784 #### [facility],[address] [place] [address] 27870 Morphology [place] (Bld) [Interp] N/A Normal [facility] Comment on above: Performed By: #### 2 41353 #### [facility],[address] [place] [address] 22909 Neutrophils (Bld) [#/Vol] 3.80 x10EE3/UL Normal 1.50 - 7.10 [facility] Comment on above: Performed By: #### 2 39861 #### [facility],[address] [place] [address] 92518 Neutrophils/100 WBC (Bld) 59.2 % Normal 46.0 - 76.0 [facility] Comment on above: Performed By: #### 2 38127 #### [facility],[address] [place] [address] 98309 Platelet mean volume (Bld) [Entitic vol] 7.8 fL Normal 6.4 - 10.5 [facility] Comment on above: Result Comment: AUTO MATED DIFFERENTIAL Performed By: #### 2 05567 #### [facility],[address] [place] [address] 14845 Platelets (Bld) [#/Vol] 291 x10EE3/UL Normal 150 - 450 [facility] Comment on above: Performed By: #### 2 28320 #### [facility],[address] [place] [address] 26790 RBC (Bld) [#/Vol] 4.57 x 10EE6/UL Normal 4.50 - 6.00 [facility] Comment on above: Performed By: #### 2 08619 #### [facility],[address] [place] [address] 23823 WBC (Bld) [#/Vol] 6.4 x 10EE3/UL Normal 4.5 - 10.8 [facility] Comment on above: Performed By: #### 2 39501 #### [facility],[address] [place] [address] 00972 LITHIUMon 03-10-2020 [place] [Moles/Vol] 0.8 mmol/L Normal 0.6 - 1.2 [facility] Comment on above: Performed By: #### 2 32819 #### [facility],[address] [place] [address] 61951 RENAL FUNCTION PANEL WITH eG FRon 03-10-2020 Age - Reported 54 years Normal [facility] Comment on above: Performed By: #### 2 40479 ####[facility],[address] [place] [address] 06677 Albumin [Mass/Vol] 3.5 g/dL Normal 3.4 - 4.8 [facility] Comment on above: Performed By: #### 2 25503 ####[facility],[address] [place] [address] 11111 B/C RATIO 8 ratio Normal 0 - 30 [facility] Comment on above: Performed By: #### 2 08237 ####[facility],[address] [place] [address] 28859 Calcium [Mass/Vol] 9.4 mg/dL Normal 8.6 - 10.2 [facility] Comment on above: Performed By: #### 2 47809 ####[facility],[address] [place] [address] 32328 Chloride [Moles/Vol] 106 mmol/L Normal 98 - 107 [facility] Comment on above: Performed By: #### 2 94657 ####[facility],[address] [place] [address] 61785 CO2 [Moles/Vol] 26.1 mmol/L Normal 21.0 - 31.0 [facility] Comment on above: Performed By: #### 2 87527 ####[facility],[address] [place] [address] 06931 Creatinine [Mass/Vol] 2.5 mg/dL High 0.7 - 1.3 [facility] Comment on above: Performed By: #### 2 79105 ####[facility],[address] [place] [address]139 GFR/1.73 sq M predicted among non-blacks MDRD (S/P/Bld) [Vol rate/Area] 33 ML/MINUTE Low 60 - 999 [facility] Comment on above: Result Comment: ACCO RDING TO THE NATIONAL KIDNEY DISEASE EDUCATION PROGRAM(NKDE), A NORMAL eGFR IS A VALUE GREATER THAN OR EQUAL TO 60 ML/MIN/1.73 SQ METERS. CHRONIC KIDNEY DISEASE: <60mL/MIN/1.73 SQ METERS KIDNEY FAILURE: <15mL/MIN/1.73 SQ METERS THIS TEST SHOULD ONLY BE USED FOR PATIENTS 18 YEARS OF AGE AND OLDER. Performed By: #### 2 52913 ####[facility],[address] [place] [address] 81213 GFR/1.73 sq M predicted among non-blacks MDRD (S/P/Bld) [Vol rate/Area] 27 ML/MINUTE Low 60 - 999 [facility] Comment on above: Performed By: #### 2 98255 ####[facility],[address] [place] [address] 40517 Glucose [Mass/Vol] 114 mg/dL High 74 - 106 [facility] Comment on above: Performed By: #### 2 89309 ####[facility],[address] [place] [address] 63101 Phosphate [Mass/Vol] 4.6 mg/dL Normal 2.7 - 4.9 [facility] Comment on above: Performed By: #### 2 82144 ####[facility],[address] [place] [address] 09831 Potassium [Moles/Vol] 3.9 mmol/L Normal 3.5 - 5.1 [facility] Comment on above: Performed By: #### 2 04925 ####[facility],[address] [place] [address] RENAL FUNCTION PANEL WITH eGFR Normal [facility] Comment on above: Result Comment: JESSICA L FUNCTION PANEL Performed By: #### 2 99330 ####[facility],[address] [place] [address] Sodium [Moles/Vol] 139 mmol/L Normal 136 - 145 [facility] Comment on above: Performed By: #### 2 14296 ####[facility],[address] [place] [address] Urea nitrogen [Mass/Vol] 21 mg/dL High 6 - 20 [facility] Comment on above: Performed By: #### 2 53589 ####[facility],[address] [place] [address] 40484 CBC + DIFFon 02-04-2020 Basophils (Bld) [#/Vol] 0.10 x10EE3/UL Normal 0. 00 - 0.10 [facility] Comment on above: Performed By: #### 2 20632 #### [address] [address] Basophils/100 WBC (Bld) 1.3 % Normal 0.0 - 2.0 [facility] Comment on above: Performed By: #### 2 53598 #### [facility],[address] [place] [address] 17887 CBC + DIFF Normal [facility] Comment on above: Result Comment: CBC- COMPLETE BLOOD COUNT Performed By: #### 2 77900 #### [facility],[address] [place], [place] [phone] Eosinophils (Bld) [#/Vol] 0.40 x10EE3/UL Normal 0.00 - 0.50 [facility] Comment on above: Performed By: #### 2 40003 #### [facility],[address] [place], [place] [phone] Eosinophils/100 WBC (Bld) 5.6 % Normal 0.0 - 7.0 [facility] Comment on above: Performed By: #### 2 43313 #### [facility],[address] [place], [place] [phone] Erythrocyte distribution width (RBC) [Ratio] 13.2 % Normal 12.0 - 15.6 [facility] Comment on above: Performed By: #### 2 84414 #### [facility],[address] [place], [place] [phone] Hematocrit (Bld) [Volume fraction] 38.7 % Low 40.0 - 52.0 [facility] Comment on above: Performed By: #### 2 86781 #### [facility],[address] [place] [address] 39664 Hemoglobin (Bld) [Mass/Vol] 13.2 g/dL Normal 13.0 - 17.5 [facility] Comment on above: Performed By: #### 2 86062 #### [facility],[address] [place] [address] 75204 Lymphocytes (Bld) [#/Vol] 1.40 x10EE3/UL Normal 0.80 - 2.80 [facility] Comment on above: Performed By: #### 2 73253 #### [facility],[address] [place] [address] 55739 Lymphocytes/100 WBC (Bld) 18.1 % Low 20.0 - 45.0 [facility] Comment on above: Performed By: #### 2 39887 #### [facility],[address] [place] [address] 31032 MANUAL DIFF N/A Normal [facility] Comment on above: Performed By: #### 2 75021 #### [facility],[address] [place] [address] 13285 MCH (RBC) [Entitic mass] 30 pg Normal 27 - 33 [facility] Comment on above: Performed By: #### 2 91247 #### [facility],[address] [place] [address] 08297 MCHC (RBC) [Mass/Vol] 34 X10 3 Normal 32 - 36 [facility] Comment on above: Performed By: #### 2 06573 #### [facility],[address] [place] [address] 73080 MCV (RBC) [Entitic vol] 88 fL Normal 81 - 98 [facility] Comment on above: Performed By: #### 2 14604 #### [facility],[address] [place] [address] 98706 Monocytes (Bld) [#/Vol] 1.10 x10EE3/UL High 0. 20 - 1.00 [facility] Comment on above: Performed By: #### 2 71027 #### [facility],[address] [place] [address] 49326 MONOS % 13.6 % High 0.0 - 10.0 [facility] Comment on above: Performed By: #### 2 77989 #### [facility],[address] [place] [address] 72442 Morphology [place] (Bld) [Interp] N/A Normal [facility] Comment on above: Performed By: #### 2 85393 #### [facility],[address] [place] [address] 13801 Neutrophils (Bld) [#/Vol] 4.80 x10EE3/UL Normal 1.50 - 7.10 [facility] Comment on above: Performed By: #### 2 54114 #### [facility],[address] [place] [address] 57411 Neutrophils/100 WBC (Bld) 61.4 % Normal 46.0 - 76.0 [facility] Comment on above: Performed By: #### 2 43070 #### [address] [address] Platelet mean volume (Bld) [Entitic vol] 7.7 fL Normal 6.4 - 10.5 [facility] Comment on above: Result Comment: AUTO MATED DIFFERENTIAL Performed By: #### 2 16078 #### [address] [address] Platelets (Bld) [#/Vol] 298 x10EE3/UL Normal 150 - 450 [facility] Comment on above: Performed By: #### 2 21555 #### [address] [address] RBC (Bld) [#/Vol] 4.40 x 10EE6/UL Low 4.50 - 6.00 [facility] Comment on above: Performed By: #### 2 81109 #### [facility],[address] [place] [address] 73663 WBC (Bld) [#/Vol] 7.8 x 10EE3/UL Normal 4.5 - 10.8 [facility] Comment on above: Performed By: #### 2 29660 #### [facility],[address] [place] [address] 99799 CULTURE URINEon 02-04-2020 CULTURE URINE CULTURE URINE _URINE CULTURE_ M I C R O B I O L O G Y R E P O R T FINAL ------- Antimicrobial Susceptibility and Organism Identification Report -------- Specimen Number : [id number] Requested : 02/04/20 Specimen Source : URINE Collected : 02/04/20 02:50 [place] of Isolation : MEME HUANG Received : 02/04/20 02:50 Requesting Physician : FLORECITA -- Patient/Specimen Tests and Comments Specimen Comments -------- -------- FINAL REPORT: NO GROWTH AT 48 HOURS -- Tech : Source : URINE ID # : [id number] FINAL Report Date : / / : Collected : 02/04/20 02:50 02/06/20.1209.KLS. 02/05/20.0910.LEIN. 02/06/20.1209.KLS.COMPLETE Normal [facility] Comment on above: Performed By: #### 2 77111 #### [facility],[address] [place], [place] [phone] RENAL FUNCTION PANEL WITH eG FRon 02-04-2020 Age - Reported 54 years Normal [facility] Comment on above: Performed By: #### 2 42867 #### [facility],[address] [place], [place] [phone] Albumin [Mass/Vol] 3.5 g/dL Normal 3.4 - 4.8 [facility] Comment on above: Performed By: #### 2 70200 #### [facility],[address] [place], [place] [phone] B/C RATIO 9 ratio Normal 0 - 30 [facility] Comment on above: Performed By: #### 2 64518 #### [facility],[address] [place] [address] 41157 Calcium [Mass/Vol] 9.4 mg/dL Normal 8.6 - 10.2 [facility] Comment on above: Performed By: #### 2 78609 #### [facility],[address] [place] [address] 71300 Chloride [Moles/Vol] 107 mmol/L Normal 98 - 107 [facility] Comment on above: Performed By: #### 2 95415 #### [facility],[address] [place] [address] 97192 CO2 [Moles/Vol] 25.6 mmol/L Normal 21.0 - 31.0 [facility] Comment on above: Performed By: #### 2 21965 #### [facility],[address] [place] [address] 01984 Creatinine [Mass/Vol] 2.4 mg/dL High 0.7 - 1.3 [facility] Comment on above: Performed By: #### 2 44367 #### [facility],[address] [place] [address] 76485 GFR/1.73 sq M predicted among non-blacks MDRD (S/P/Bld) [Vol rate/Area] 28 ML/MINUTE Low 60 - 999 [facility] Comment on above: Performed By: #### 2 09850 #### [facility],[address] [place] [address] 88270 GFR/1.73 sq M predicted among non-blacks MDRD (S/P/Bld) [Vol rate/Area] 34 ML/MINUTE Low 60 - 999 [facility] Comment on above: Result Comment: ACCO RDING TO THE NATIONAL KIDNEY DISEASE EDUCATION PROGRAM(NKDE), A NORMAL eGFR IS A VALUE GREATER THAN OR EQUAL TO 60 ML/MIN/1.73 SQ METERS. CHRONIC KIDNEY DISEASE: <60mL/MIN/1.73 SQ METERS KIDNEY FAILURE: <15mL/MIN/1.73 SQ METERS THIS TEST SHOULD ONLY BE USED FOR PATIENTS 18 YEARS OF AGE AND OLDER. Performed By: #### 2 53283 #### [facility],[address] [place], [place] [phone] Glucose [Mass/Vol] 114 mg/dL High 74 - 106 [facility] Comment on above: Performed By: #### 2 09273 #### [facility],[address] [place] [address] 41727 Phosphate [Mass/Vol] 4.5 mg/dL Normal 2.7 - 4.9 [facility] Comment on above: Performed By: #### 2 33871 #### [facility],[address] [place] [address] 86257 Potassium [Moles/Vol] 3.8 mmol/L Normal 3.5 - 5.1 [facility] Comment on above: Performed By: #### 2 33461 #### [facility],[address] [place], [place] [phone] RENAL FUNCTION PANEL WITH eGFR Normal [facility] Comment on above: Result Comment: JESSICA L FUNCTION PANEL Performed By: #### 2 07702 #### [facility],[address] [place] [address] Sodium [Moles/Vol] 139 mmol/L Normal 136 - 145 [facility] Comment on above: Performed By: #### 2 06109 #### [facility],[address] [place], [place] [id number] Urea nitrogen [Mass/Vol] 22 mg/dL High 6 - 20 [facility] Comment on above: Performed By: #### 2 13008 #### [facility],[address] [place], [place] [phone] URINALYSISon 02-04-2020 Amorphous NONE Normal [facility] Comment on above: Performed By: #### 2 12008 #### [facility],[address] [place] [address] Bacteria LM.HPF (Urine sed) [#/Area] NONE Normal [facility] Comment on above: Performed By: #### 2 02917 #### [facility],[address] [place], [place] [phone] Bilirubin [Mass/Vol] Negative Normal NORMAL: NEGATIVE [facility] Comment on above: Performed By: #### 2 18038 #### [facility],[address] [place] [address] 95815 Blood Negative Normal NORMAL: NEGATIVE [facility] Comment on above: Performed By: #### 2 66259 #### [facility],[address] [place] [address] 28235 Casts LM.LPF (Urine sed) [#/Area] NONE Normal [facility] [facility] Comment on above: Performed By: #### 2 02325 #### [facility],[address] [place] [address] 14358 Clarity (U) clear Normal NORMAL: CLEAR [facility] Comment on above: Performed By: #### 2 71432 #### [facility],[address] [place] [address] 50184 Color (U) yellow Normal NORMAL: YELLOW [facility] Comment on above: Performed By: #### 2 03050 #### [facility],[address] [place] [address],[facility] [address] Crystals LM Nom (Urine sed) NONE Normal [facility] Comment on above: Performed By: #### 2 25488 #### [facility],[address] [place] [address] 16402 Epi Cells NONE Normal [facility] Comment on above: Performed By: #### 2 64029 #### [facility],[address] [place] [address] 37420 Glucose [Mass/Vol] NORM Normal NORMAL: NORMAL [facility] Comment on above: Performed By: #### 2 91157 #### [facility],[address] [place] [address] 94350 Ketone Negative Normal NORMAL: NEGATIVE [facility] Comment on above: Performed By: #### 2 89598 #### [facility],[address] [place] [address] 30308 Microscopic SEE BELOW Normal [facility] Comment on above: Result Comment: MICR OSCOPIC Performed By: #### 2 90516 #### [facility],[address] [place] [address] 79899 Mucous NONE Normal [facility] Comment on above: Performed By: #### 2 84908 #### [facility],[address] [place] [address] 73386 Nitrite Ql (U) Negative Normal NORMAL: NEGATIVE [facility] Comment on above: Performed By: #### 2 54327 #### [facility],[address] [place] [address] 57546 pH (Bld) 6 Normal NORMAL: 5.0-8.0 [facility] Comment on above: Performed By: #### 2 00228 #### [facility],[address] [place] [address] 05902 Protein (U) [Mass/Vol] Negative Normal JENN L: NEGATIVE [facility] Comment on above: Performed By: #### 2 46346 #### [facility],[address] [place] [address] 14768 Rbc NONE Normal 0-3/hpf [facility] Comment on above: Performed By: #### 2 45586 #### [facility],[address] [place] [address] Sp Hillman 1.015 Normal NORMAL: 1.010-1.03 0 [facility] Comment on above: Performed By: #### 2 86701 #### [facility],[address] [place] [address] Specimen type Nom (Spec) Clean catch Normal [facility] Comment on above: Performed By: #### 2 47844 #### [facility],[address] [place] [address] Urobilinog NORM Normal NORMAL: NORMAL [facility] Comment on above: Performed By: #### 2 89068 #### [facility],[address] [place] [address] Wbc 1-5 Normal 0-5/hpf [facility] Comment on above: Performed By: #### 2 11520 #### [facility],[address] [place] [address] WBC (Bld) [#/Vol] 25 Abnormal NORMAL: NEGATIVE [facility] Comment on above: Performed By: #### 2 45219 #### [facility],[address] [place] [address] Yeast LM Ql (Urine sed) NONE Normal [facility] Comment on above: Performed By: #### 2 93309 #### [facility],[address] [place], [place] [id number] URINE CREATININE AND PROTEIN RATIOon 02-04-2020 CREATININE UR 143.6 mg/dl Normal [facility] Comment on above: Performed By: #### 2 10531 #### [facility],[address] [place] [address] PC RATIO 0.05 mg/dL Normal 0.00 - 10.00 [facility] Comment on above: Performed By: #### 2 34467 #### [facility],[address] [place] [address] 80969 Protein (U) [Mass/Vol] 7.00 mg/dL Normal 0.00 - 10.00 [facility] Comment on above: Performed By: #### 2 21623 #### [facility],[address] [place] [address] 12315 ALBUMIN PLASMAon 01-07-2020 Albumin [Mass/Vol] 3.7 g/dL Normal 3.4 - 4.8 [facility] Comment on above: Performed By: #### 2 45057 #### [facility],[address] [place] [address] 22349 BMP with eGFRon 01-07-2020 Age - Reported 54 years Normal [facility] Comment on above: Performed By: #### 2 16574 #### [facility],[address] [place] [address] 14359 Anion gap [Moles/Vol] 13 mmol/L Normal 10 - 20 [facility] Comment on above: Performed By: #### 2 49781 #### [facility],[address] [place] [address] 67755 Calcium [Mass/Vol] 9.3 mg/dL Normal 8.6 - 10.2 [facility] Comment on above: Performed By: #### 2 25835 #### [facility],[address] [place] [address] 94441 Chloride [Moles/Vol] 108 mmol/L High 98 - 107 [facility] Comment on above: Performed By: #### 2 38244 #### [facility],[address] [place] [address] 08210 CO2 [Moles/Vol] 26.1 mmol/L Normal 21.0 - 31.0 [facility] Comment on above: Performed By: #### 2 73945 #### [facility],[address] [place] [address] 08293 Creatinine [Mass/Vol] 2.0 mg/dL High 0.7 - 1.3 [facility] Comment on above: Performed By: #### 2 66338 #### [facility],[address] [place] [address] 17921 GFR/1.73 sq M predicted among non-blacks MDRD (S/P/Bld) [Vol rate/Area] Normal [facility] Comment on above: Result Comment: BASI C METABOLIC PANEL Performed By: #### 2 64594 #### [facility],[address] [place] [address] 43991 GFR/1.73 sq M predicted among non-blacks MDRD (S/P/Bld) [Vol rate/Area] 42 ML/MINUTE Low 60 - 999 [facility] Comment on above: Result Comment: ACCO RDING TO THE NATIONAL KIDNEY DISEASE EDUCATION PROGRAM(NKDE), A NORMAL eGFR IS A VALUE GREATER THAN OR EQUAL TO 60 ML/MIN/1.73 SQ METERS. CHRONIC KIDNEY DISEASE: <60mL/MIN/1.73 SQ METERS KIDNEY FAILURE: <15mL/MIN/1.73 SQ METERS THIS TEST SHOULD ONLY BE USED FOR PATIENTS 18 YEARS OF AGE AND OLDER. Performed By: #### 2 12163 #### [facility],[address] [place] [address] 37243 GFR/1.73 sq M predicted among non-blacks MDRD (S/P/Bld) [Vol rate/Area] 35 ML/MINUTE Low 60 - 999 [facility] Comment on above: Performed By: #### 2 39005 #### [facility],[address] [place] [address] 53834 Glucose [Mass/Vol] 99 mg/dL Normal 74 - 106 [facility] Comment on above: Performed By: #### 2 21409 #### [facility],[address] [place] [address] 59659 Potassium [Moles/Vol] 3.8 mmol/L Normal 3.5 - 5.1 [facility] Comment on above: Performed By: #### 2 01672 #### [facility],[address] [place] [address] 47840 Sodium [Moles/Vol] 143 mmol/L Normal 136 - 145 [facility] Comment on above: Performed By: #### 2 47896 #### [facility],[address] [place] [address] 28240 Urea nitrogen [Mass/Vol] 22 mg/dL High 6 - 20 [facility] Comment on above: Performed By: #### 2 73809 #### [facility],[address] [place] [address] 13562 CBC + DIFFon 01-07-2020 Basophils (Bld) [#/Vol] 0.10 x10EE3/UL Normal 0. 00 - 0.10 [facility] Comment on above: Performed By: #### 2 27095 #### [facility],[address] [place] [address] 16534 Basophils/100 WBC (Bld) 1.0 % Normal 0.0 - 2.0 [facility] Comment on above: Performed By: #### 2 62969 #### [facility],[address] [place] [address] 00234 CBC + DIFF Normal [facility] Comment on above: Result Comment: CBC- COMPLETE BLOOD COUNT Performed By: #### 2 72060 #### [facility],[address] [place] [address] 38789 Eosinophils (Bld) [#/Vol] 0.30 x10EE3/UL Normal 0.00 - 0.50 [facility] Comment on above: Performed By: #### 2 70102 #### [facility],[address] [place] [address] 38560 Eosinophils/100 WBC (Bld) 3.3 % Normal 0.0 - 7.0 [facility] Comment on above: Performed By: #### 2 96023 #### [facility],[address] [place] [address] Erythrocyte distribution width (RBC) [Ratio] 13.1 % Normal 12.0 - 15.6 [facility] Comment on above: Performed By: #### 2 02078 #### [facility],[address] [place] [address] Hematocrit (Bld) [Volume fraction] 39.0 % Low 40.0 - 52.0 [facility] Comment on above: Performed By: #### 2 79821 #### [facility],[address] [place] [address] Hemoglobin (Bld) [Mass/Vol] 13.4 g/dL Normal 13.0 - 17.5 [facility] Comment on above: Performed By: #### 2 05165 #### [place] [address] Lymphocytes (Bld) [#/Vol] 1.90 x10EE3/UL Normal 0.80 - 2.80 [facility] Comment on above: Performed By: #### 2 69056 #### [facility],[address] [place], [place] [phone] Lymphocytes/100 WBC (Bld) 20.6 % Normal 20.0 - 45.0 [facility] Comment on above: Performed By: #### 2 51478 #### [facility],[address] [place], [place] [phone] MANUAL DIFF N/A Normal [facility] Comment on above: Performed By: #### 2 81990 #### [place] [id number] MCH (RBC) [Entitic mass] 30 pg Normal 27 - 33 [facility] Comment on above: Performed By: #### 2 34842 #### [place] [id number] MCHC (RBC) [Mass/Vol] 34 X10 3 Normal 32 - 36 [facility] Comment on above: Performed By: #### 2 47885 #### [facility],[address] [place] [address] 64809 MCV (RBC) [Entitic vol] 88 fL Normal 81 - 98 [facility] Comment on above: Performed By: #### 2 05857 #### [facility],[address] [place] [address] 99054 Monocytes (Bld) [#/Vol] 0.90 x10EE3/UL Normal 0. 20 - 1.00 [facility] Comment on above: Performed By: #### 2 49086 #### [facility],[address] [place] [address] 68072 MONOS % 10.0 % Normal 0.0 - 10.0 [facility] Comment on above: Performed By: #### 2 88409 #### [facility],[address] [place] [address] 12858 Morphology Crispin (Bld) [Interp] N/A Normal [facility] Comment on above: Performed By: #### 2 27202 #### [facility],[address] [place] [address] 21615 Neutrophils (Bld) [#/Vol] 5.90 x10EE3/UL Normal 1.50 - 7.10 [facility] Comment on above: Performed By: #### 2 73597 #### [facility],[address] [place] [address] 29427 Neutrophils/100 WBC (Bld) 65.1 % Normal 46.0 - 76.0 [facility] Comment on above: Performed By: #### 2 49224 #### [facility],[address] [place] [address] 65290 Platelet mean volume (Bld) [Entitic vol] 7.7 fL Normal 6.4 - 10.5 [facility] Comment on above: Result Comment: AUTO MATED DIFFERENTIAL Performed By: #### 2 97247 #### [facility],[address] [place] [address] Platelets (Bld) [#/Vol] 260 x10EE3/UL Normal 150 - 450 [facility] Comment on above: Performed By: #### 2 20956 #### [facility],[address] [place], [place] [address] RBC (Bld) [#/Vol] 4.41 x 10EE6/UL Low 4.50 - 6.00 [facility] Comment on above: Performed By: #### 2 36212 #### [facility],[address] [place] [address] WBC (Bld) [#/Vol] 9.1 x 10EE3/UL Normal 4.5 - 10.8 [facility] Comment on above: Performed By: #### 2 21719 #### [facility],[address] [place] [address] CULTURE URINEon 01-07-2020 CULTURE URINE CULTURE URINE _URINE CULTURE_ M I C R O B I O L O G Y R E P O R T FINAL ------- Antimicrobial Susceptibility and Organism Identification Report -------- Specimen Number : [id number] Requested : 01/07/20 Specimen Source : CLEAN CATCH URINE Collected : 01/07/20 02:30 [place] of [place]olation : MEME HUANG Received : 01/07/20 02:30 Requesting Physician : FLORECITA -- Patient/Specimen Tests and Comments Specimen Comments -------- -------- FINAL REPORT: NO GROWTH AT 48 HOURS -- Tech : Source : CLEAN CATCH URINE ID # : [id number] FINAL Report Date : / / : Collected : 01/07/20 02:30 01/09/20.1027.BKO. 01/08/20.1302.KLS. 01/09/20.1027.BKO.COMPLETE 01/09/20.1027.BKO.to [place] via fax Normal [facility] Comment on above: Performed By: #### 2 31568 #### [facility],[address] [place] [address] 06213 LITHIUMon 01-07-2020 [place] [Moles/Vol] 0.6 mmol/L Normal 0.6 - 1.2 [facility] Comment on above: Performed By: #### 2 38923 #### [facility],[address] [place] [address] URINALYSISon 01-07-2020 Bilirubin [Mass/Vol] Negative Normal NORMAL: NEGATIVE [facility] Comment on above: Performed By: #### 2 19633 #### [facility],[address] [place] [address] Blood Negative Normal NORMAL: NEGATIVE [facility] Comment on above: Performed By: #### 2 68270 #### [facility],[address] [place] [address] Clarity (U) clear Normal NORMAL: CLEAR [facility] Comment on above: Performed By: #### 2 35740 #### [facility],[address] [place] [address] Color (U) p.yel Normal NORMAL: YELLOW [facility] Comment on above: Performed By: #### 2 12158 #### [facility],[address] [place] [address] Glucose [Mass/Vol] NORM Normal NORMAL: NORMAL [facility] Comment on above: Performed By: #### 2 46725 #### [facility],[address] [place] [address] Ketone Negative Normal NORMAL: NEGATIVE [facility] Comment on above: Performed By: #### 2 52795 #### [facility],[address] [place] [address] Microscopic NOT INDICATED Normal [facility] Comment on above: Performed By: #### 2 87237 #### [facility],[address] [place], [place] [phone] Nitrite Ql (U) Negative Normal NORMAL: NEGATIVE [facility] Comment on above: Performed By: #### 2 66395 #### [facility],[address] [place] [address] pH (Bld) 6.5 Normal NORMAL: 5.0-8.0 [facility] Comment on above: Performed By: #### 2 19895 #### [facility],[address] [place] [address] 67447 Protein (U) [Mass/Vol] Negative Normal JENN L: NEGATIVE [facility] Comment on above: Performed By: #### 2 18018 #### [facility],[address] [place] [address] 07721 Sp Hillman 1.010 Normal NORMAL: 1.010-1.03 0 [facility] Comment on above: Performed By: #### 2 71077 #### [facility],[address] [place] [address] Specimen type Nom (Spec) Clean catch Normal [facility] Comment on above: Performed By: #### 2 18433 #### [facility],[address] [place], [place] [phone] Urobilinog NORM Normal NORMAL: NORMAL [facility] Comment on above: Performed By: #### 2 74693 #### [facility],[address] [place] [address] 08394 WBC (Bld) [#/Vol] Negative Normal NORMAL: NEGATIVE [facility] Comment on above: Performed By: #### 2 96820 #### [facility],[address] [place] [address] 46553 URINE CREATININE AND PROTEIN RATIOon 01-07-2020 CREATININE UR 75.6 mg/dl Normal [facility] Comment on above: Performed By: #### 2 22030 #### [facility],[address] [place] [address] 44574 PC RATIO 0.07 mg/dL Normal 0.00 - 10.00 [facility] Comment on above: Performed By: #### 2 77821 #### [facility],[address] [place] [address] 94908 Protein (U) [Mass/Vol] mg/dL Normal 0.00 - 10.00 [facility] Comment on above: Performed By: #### 2 74507 #### [facility],[address] [place] [address] CBC + DIFFon 12-10-2019 Basophils (Bld) [#/Vol] 0.10 x10EE3/UL Normal 0. 00 - 0.10 [facility] Comment on above: Performed By: #### 2 34870 #### [facility],[address] [place], [place] [phone] Basophils/100 WBC (Bld) 0.7 % Normal 0.0 - 2.0 [facility] Comment on above: Performed By: #### 2 08588 #### [facility],[address] [place] [address] CBC + DIFF Normal [facility] Comment on above: Result Comment: CBC- COMPLETE BLOOD COUNT Performed By: #### 2 35792 #### [facility],[address] [place] [address] Eosinophils (Bld) [#/Vol] 0.30 x10EE3/UL Normal 0.00 - 0.50 [facility] Comment on above: Performed By: #### 2 58751 #### [facility],[address] [place], [place] [phone] Eosinophils/100 WBC (Bld) 3.2 % Normal 0.0 - 7.0 [facility] Comment on above: Performed By: #### 2 37090 #### [facility],[address] [place] [address] Erythrocyte distribution width (RBC) [Ratio] 12.7 % Normal 12.0 - 15.6 [facility] Comment on above: Performed By: #### 2 16870 #### [place] [address] Hematocrit (Bld) [Volume fraction] 38.7 % Low 40.0 - 52.0 [facility] Comment on above: Performed By: #### 2 71708 #### [facility],[address] [place] [address] 64301 Hemoglobin (Bld) [Mass/Vol] 13.4 g/dL Normal 13.0 - 17.5 [facility] Comment on above: Performed By: #### 2 86763 #### [facility],[address] [place] [address] 21105 Lymphocytes (Bld) [#/Vol] 2.10 x10EE3/UL Normal 0.80 - 2.80 [facility] Comment on above: Performed By: #### 2 73395 #### [facility],[address] [place] [address] 78264 Lymphocytes/100 WBC (Bld) 21.3 % Normal 20.0 - 45.0 [facility] Comment on above: Performed By: #### 2 86041 #### [facility],[address] [place] [address] 51694 MANUAL DIFF N/A Normal [facility] Comment on above: Performed By: #### 2 52012 #### [facility],[address] [place] [address] 07322 MCH (RBC) [Entitic mass] 31 pg Normal 27 - 33 [facility] Comment on above: Performed By: #### 2 68732 #### [facility],[address] [place] [address] 39115 MCHC (RBC) [Mass/Vol] 35 X10 3 Normal 32 - 36 [facility] Comment on above: Performed By: #### 2 89938 #### [facility],[address] [place] [address] 46203 MCV (RBC) [Entitic vol] 89 fL Normal 81 - 98 [facility] Comment on above: Performed By: #### 2 79624 #### [facility],[address] [place] [address] 49333 Monocytes (Bld) [#/Vol] 1.00 x10EE3/UL Normal 0. 20 - 1.00 [facility] Comment on above: Performed By: #### 2 62392 #### [facility],[address] [place] [address] 14124 MONOS % 10.5 % High 0.0 - 10.0 [facility] Comment on above: Performed By: #### 2 86546 #### [facility],[address] [place] [address] 77252 Morphology Crispin (Bld) [Interp] N/A Normal [facility] Comment on above: Performed By: #### 2 10865 #### [facility],[address] [place] [address] 35560 Neutrophils (Bld) [#/Vol] 6.30 x10EE3/UL Normal 1.50 - 7.10 [facility] Comment on above: Performed By: #### 2 71647 #### [address] [address] Neutrophils/100 WBC (Bld) 64.3 % Normal 46.0 - 76.0 [facility] Comment on above: Performed By: #### 2 14332 #### [facility] [place],[address] [place] [address] 29384 Platelet mean volume (Bld) [Entitic vol] 7.4 fL Normal 6.4 - 10.5 [facility] [place] Comment on above: Result Comment: AUTO MATED DIFFERENTIAL Performed By: #### 2 40626 #### [facility] [place],[address] [place] [address] 36302 Platelets (Bld) [#/Vol] 254 x10EE3/UL Normal 150 - 450 [facility] [place] Comment on above: Performed By: #### 2 23432 #### [facility] [place],[address] [place] [address] 78970 RBC (Bld) [#/Vol] 4.34 x 10EE6/UL Low 4.50 - 6.00 [facility] [place] Comment on above: Performed By: #### 2 34120 #### [facility] [place],[address] [place] [address] 28892 WBC (Bld) [#/Vol] 9.8 x 10EE3/UL Normal 4.5 - 10.8 [facility] Comment on above: Performed By: #### 2 73873 #### [facility] [place],[address] [place] [address] 06701 CULTURE URINEon 12-10-2019 CULTURE URINE CULTURE URINE _URINE CULTURE_ M I C R O B I O L O G Y R E P O R T FINAL ------- Antimicrobial Susceptibility and Organism Identification Report -------- Specimen Number : [id number] Requested : 12/09/19 Specimen Source : CLEAN CATCH URINE Collected : 12/09/19 23:45 [place] of Isolation : MEME HUANG Received : 12/09/19 23:45 Requesting Physician : FLORECITA -- Patient/Specimen Tests and Comments Specimen Comments -------- -------- FINAL REPORT: NO GROWTH AT 48 HOURS -- Tech : Source : CLEAN CATCH URINE ID # : [id number] FINAL Report Date : / / : Collected : 12/09/19 23:45 12/12/19.BKO. 12/11/19.BKO. 12/12/19.BKO.COMPLETE 12/12/19.BKO.to [facility] via fax Normal [facility] [place] Comment on above: Performed By: #### 2 93518 #### [facility] [place],[address] [place] [address] 83563 LITHIUMon 12-10-2019 [place] [Moles/Vol] 0.6 mmol/L Normal 0.6 - 1.2 [facility] [place] Comment on above: Performed By: #### 2 55599 #### [facility] [place],[address] [place] [address] 47281 RENAL FUNCTION PANEL WITH eG FRon 12-10-2019 Age - Reported 54 years Normal [facility] [place] Comment on above: Performed By: #### 2 16898 #### [facility] [place],[address] [place] [address] 96261 Albumin [Mass/Vol] 3.6 g/dL Normal 3.4 - 4.8 [facility] [place] Comment on above: Performed By: #### 2 28378 #### [facility] [place],[address] [place] [address] 28014 B/C RATIO 12 ratio Normal 0 - 30 [facility] [place] Comment on above: Performed By: #### 2 11370 #### [facility] [place],[address] [place] [address] 47512 Calcium [Mass/Vol] 9.4 mg/dL Normal 8.6 - 10.2 [facility] [place] Comment on above: Performed By: #### 2 22077 #### [facility] [place],[address] [place] [address] 04732 Chloride [Moles/Vol] 105 mmol/L Normal 98 - 107 [facility] [place] Comment on above: Performed By: #### 2 82444 #### [facility] [place],[address] [place] [address] 80721 CO2 [Moles/Vol] 24.4 mmol/L Normal 21.0 - 31.0 [facility] [place] Comment on above: Performed By: #### 2 96076 #### [facility] [place],[address] [place] [address] 47378 Creatinine [Mass/Vol] 1.9 mg/dL High 0.7 - 1.3 [facility] Comment on above: Performed By: #### 2 60753 #### [facility] [place],[address] [place] [address] 63488 GFR/1.73 sq M predicted among non-blacks MDRD (S/P/Bld) [Vol rate/Area] 37 ML/MINUTE Low 60 - 999 [facility] [place] Comment on above: Performed By: #### 2 95140 #### [facility] [place],[address] [place] [address] 13605 GFR/1.73 sq M predicted among non-blacks MDRD (S/P/Bld) [Vol rate/Area] 45 ML/MINUTE Low 60 - 999 [facility] [place] Comment on above: Result Comment: ACCO RDING TO THE NATIONAL KIDNEY DISEASE EDUCATION PROGRAM(NKDE), A NORMAL eGFR IS A VALUE GREATER THAN OR EQUAL TO 60 ML/MIN/1.73 SQ METERS. CHRONIC KIDNEY DISEASE: <60mL/MIN/1.73 SQ METERS KIDNEY FAILURE: <15mL/MIN/1.73 SQ METERS THIS TEST SHOULD ONLY BE USED FOR PATIENTS 18 YEARS OF AGE AND OLDER. Performed By: #### 2 26969 #### [facility] [place],[address] [place] [address] 63644 Glucose [Mass/Vol] 106 mg/dL Normal 74 - 106 [facility] [place] Comment on above: Performed By: #### 2 86253 #### [facility] [place],[address] [place] [address] 09583 Phosphate [Mass/Vol] 5.0 mg/dL High 2.7 - 4.9 [facility] [place] Comment on above: Performed By: #### 2 29286 #### [facility] [place],[address] [place] [address] Potassium [Moles/Vol] 3.4 mmol/L Low 3.5 - 5.1 [facility] Comment on above: Performed By: #### 2 02649 #### [facility] [place],[address] [place] [address] RENAL FUNCTION PANEL WITH eGFR Normal [facility] [place] Comment on above: Result Comment: JESSICA L FUNCTION PANEL Performed By: #### 2 13531 #### [facility] [place],[address] [place] [address] Sodium [Moles/Vol] 139 mmol/L Normal 136 - 145 [facility] [place] Comment on above: Performed By: #### 2 95287 #### [facility] [place],[address] [place] [address] 52131 Urea nitrogen [Mass/Vol] 23 mg/dL High 6 - 20 [facility] [place] Comment on above: Performed By: #### 2 51374 #### [address] [address] URINALYSISon 12-10-2019 Bilirubin [Mass/Vol] Negative Normal NORMAL: NEGATIVE [facility] [place] Comment on above: Performed By: #### 2 55089 #### [facility] [place],[address],[place] [address] Blood Negative Normal NORMAL: NEGATIVE [facility] [place] Comment on above: Performed By: #### 2 27449 #### [facility] [place],[address] [place] [address] 26900 Clarity (U) clear Normal NORMAL: CLEAR [facility] [place] Comment on above: Performed By: #### 2 99940 #### [facility] [place],[address] [place] [address] 09009 Color (U) p.yel Normal NORMAL: YELLOW [facility] [place] Comment on above: Performed By: #### 2 02074 #### [facility] [place],[address] [place] [address] 43161 Glucose [Mass/Vol] NORM Normal NORMAL: NORMAL [facility] [place] Comment on above: Performed By: #### 2 78000 #### [facility] [place],[address] [place] [address] 47515 Ketone Negative Normal NORMAL: NEGATIVE [facility] [place] Comment on above: Performed By: #### 2 09961 #### [facility] [place],[address] [place] [address] 69254 Microscopic NOT INDICATED Normal [facility] [place] Comment on above: Performed By: #### 2 52021 #### [facility] [place],[address] [place] [address] 83430 Nitrite Ql (U) Negative Normal NORMAL: NEGATIVE [facility] [place] Comment on above: Performed By: #### 2 01180 #### [facility] [place],[address] [place] [address] 06901 pH (Bld) 6 Normal NORMAL: 5.0-8.0 [facility] [place] Comment on above: Performed By: #### 2 72110 #### [facility] [place],[address] [place] [address] 33340 Protein (U) [Mass/Vol] Negative Normal JENN L: NEGATIVE [facility] [place] Comment on above: Performed By: #### 2 75105 #### [facility] [place],[address] [place] [address] Sp Hillman 1.015 Normal NORMAL: 1.010-1.03 0 [facility] [place] Comment on above: Performed By: #### 2 84288 #### [facility] [place],[address] [place] [address] Specimen type Nom (Spec) Clean catch Normal [facility] [place] Comment on above: Performed By: #### 2 44390 #### [facility] [place],[address] [place] [address] Urobilinog NORM Normal NORMAL: NORMAL [facility] [place] Comment on above: Performed By: #### 2 16285 #### [facility] [place],[address] [place] [address] WBC (Bld) [#/Vol] Negative Normal NORMAL: NEGATIVE [facility] [place] Comment on above: Performed By: #### 2 97907 #### [facility] [place],[address] [place] [address] URINE CREATININE AND PROTEIN RATIOon 12-10-2019 CREATININE UR 97.1 mg/dl Normal [facility] [place] Comment on above: Performed By: #### 2 35398 #### [facility] [place],[address] [place] [address] PC RATIO 0.07 mg/dL Normal 0.00 - 10.00 [facility] [place] Comment on above: Performed By: #### 2 45553 #### [facility] [place],[address] [place], [place] [phone] Protein (U) [Mass/Vol] 7.00 mg/dL Normal 0.00 - 10.00 [facility] [place] Comment on above: Performed By: #### 2 70600 #### [facility] [place],[address] [place], [place] [id number] BMP with eGFRon 11-05-2019 Age - Reported 54 years Normal [facility] [place] Comment on above: Performed By: #### 2 17585 #### [facility] [place],[address] [place] [address] 48482 Anion gap [Moles/Vol] 12 mmol/L Normal 10 - 20 [facility] Comment on above: Performed By: #### 2 30473 #### [facility] [place],[address] [place] [address] 25387 Chloride [Moles/Vol] 105 mmol/L Normal 98 - 107 [facility] [place] Comment on above: Performed By: #### 2 42970 #### [facility] [place],[address] [place] [address] 16309 CO2 [Moles/Vol] 26.8 mmol/L Normal 21.0 - 31.0 [facility] [place] Comment on above: Performed By: #### 2 81846 #### [facility] [place],[address] [place] [address] 86626 GFR/1.73 sq M predicted among non-blacks MDRD (S/P/Bld) [Vol rate/Area] 38 ML/MINUTE Low 60 - 999 [facility] [place] Comment on above: Result Comment: ACCO RDING TO THE NATIONAL KIDNEY DISEASE EDUCATION PROGRAM(NKDE), A NORMAL eGFR IS A VALUE GREATER THAN OR EQUAL TO 60 ML/MIN/1.73 SQ METERS. CHRONIC KIDNEY DISEASE: <60mL/MIN/1.73 SQ METERS KIDNEY FAILURE: <15mL/MIN/1.73 SQ METERS THIS TEST SHOULD ONLY BE USED FOR PATIENTS 18 YEARS OF AGE AND OLDER. Performed By: #### 2 81964 #### [facility] [place],[address] [place] [address] 27128 GFR/1.73 sq M predicted among non-blacks MDRD (S/P/Bld) [Vol rate/Area] 31 ML/MINUTE Low 60 - 999 [facility] [place] Comment on above: Performed By: #### 2 94652 #### [facility] [place],[address] [place] [address] 24876 GFR/1.73 sq M predicted among non-blacks MDRD (S/P/Bld) [Vol rate/Area] Normal [facility] [place] Comment on above: Result Comment: BASI C METABOLIC PANEL Performed By: #### 2 00084 #### [facility] [place],[address] [place] [address] 64689 Potassium [Moles/Vol] 3.4 mmol/L Low 3.5 - 5.1 [facility] Comment on above: Performed By: #### 2 65591 #### [facility] [place],[address] [place] [address] 83264 Sodium [Moles/Vol] 140 mmol/L Normal 136 - 145 [facility] [place] Comment on above: Performed By: #### 2 02527 #### [facility] [place],[address] [place] [address] 66048 CBC + DIFFon 11-05-2019 Basophils (Bld) [#/Vol] 0.10 x10EE3/UL Normal 0. 00 - 0.10 [facility] [place] Comment on above: Performed By: #### 2 76449 #### [facility] [place],[address] [place] [address] 32774 Basophils/100 WBC (Bld) 0.9 % Normal 0.0 - 2.0 [facility] Comment on above: Performed By: #### 2 93699 #### [facility] [place],[address] [place] [address] 32984 CBC + DIFF Normal [facility] [place] Comment on above: Result Comment: CBC- COMPLETE BLOOD COUNT Performed By: #### 2 77084 #### [facility] [place],[address] [place] [address] 03753 Eosinophils (Bld) [#/Vol] 0.40 x10EE3/UL Normal 0.00 - 0.50 [facility] [place] Comment on above: Performed By: #### 2 48649 #### [facility] [place],[address] [place] [address] 81612 Eosinophils/100 WBC (Bld) 3.9 % Normal 0.0 - 7.0 [facility] [place] Comment on above: Performed By: #### 2 74612 #### [facility] [place],[address] [place] [address] Erythrocyte distribution width (RBC) [Ratio] 12.4 % Normal 12.0 - 15.6 [facility] [place] Comment on above: Performed By: #### 2 71658 #### [facility] [place],[address] [place] [address] Hematocrit (Bld) [Volume fraction] 39.9 % Low 40.0 - 52.0 [facility] [place] Comment on above: Performed By: #### 2 57930 #### [facility] [place],[address] [place] [address] Hemoglobin (Bld) [Mass/Vol] 13.3 g/dL Normal 13.0 - 17.5 [facility] [place] Comment on above: Performed By: #### 2 91911 #### [facility] [place],[address] [place] [address] Lymphocytes (Bld) [#/Vol] 1.90 x10EE3/UL Normal 0.80 - 2.80 [facility] [place] Comment on above: Performed By: #### 2 96803 #### [facility] [place],[address] [place], [place] [address] Lymphocytes/100 WBC (Bld) 20.3 % Normal 20.0 - 45.0 [facility] [place] Comment on above: Performed By: #### 2 60735 #### [facility] [place],[address] [place], [place] [phone] MANUAL DIFF N/A Normal [facility] [place] Comment on above: Performed By: #### 2 32091 #### [facility] [place],[address] [place] [address] 40557 MCH (RBC) [Entitic mass] 30 pg Normal 27 - 33 [facility] [place] Comment on above: Performed By: #### 2 05482 #### [facility] [place],[address] [place], [place] [phone] MCHC (RBC) [Mass/Vol] 33 X10 3 Normal 32 - 36 [facility] Comment on above: Performed By: #### 2 75663 #### [facility] [place],[address] [place] [address] 00989 MCV (RBC) [Entitic vol] 91 fL Normal 81 - 98 [facility] Comment on above: Performed By: #### 2 04980 #### [facility] [place],[address] [place] [address] 06253 Monocytes (Bld) [#/Vol] 1.00 x10EE3/UL Normal 0. 20 - 1.00 [facility] [place] Comment on above: Performed By: #### 2 59334 #### [facility] [place],[address] [place] [address] 04906 MONOS % 10.5 % High 0.0 - 10.0 [facility] [place] Comment on above: Performed By: #### 2 64896 #### [facility] [place],[address] [place] [address] 78694 Morphology Cris[place] (Bld) [Interp] N/A Normal [facility] [place] Comment on above: Performed By: #### 2 93211 #### [facility] [place],[address] [place] [address] 73035 Neutrophils (Bld) [#/Vol] 6.10 x10EE3/UL Normal 1.50 - 7.10 [facility] [place] Comment on above: Performed By: #### 2 30770 #### [facility] [place],[address] [place] [address] 86559 Neutrophils/100 WBC (Bld) 64.4 % Normal 46.0 - 76.0 [facility] [place] Comment on above: Performed By: #### 2 53281 #### [facility] [place],[address] [place] [address] 73998 Platelet mean volume (Bld) [Entitic vol] 7.4 fL Normal 6.4 - 10.5 [facility] [place] Comment on above: Result Comment: AUTO MATED DIFFERENTIAL Performed By: #### 2 97726 #### [facility] [place],[address] [place] [address] 42722 Platelets (Bld) [#/Vol] 260 x10EE3/UL Normal 150 - 450 [facility] [place] Comment on above: Performed By: #### 2 39867 #### [facility] [place],[address] [place] [address] 16836 RBC (Bld) [#/Vol] 4.38 x 10EE6/UL Low 4.50 - 6.00 [facility] [place] Comment on above: Performed By: #### 2 28707 #### [facility] [place],[address] [place] [address] 47097 WBC (Bld) [#/Vol] 9.4 x 10EE3/UL Normal 4.5 - 10.8 [facility] Comment on above: Performed By: #### 2 05486 #### [facility] [place],[address] [place] [address] LITHIUMon 11-05-2019 [place] [Moles/Vol] 0.5 mmol/L Low 0.6 - 1.2 [facility] [place] Comment on above: Performed By: #### 2 41794 #### [facility] [place],[address] [place] [address] 01116 RENAL FUNCTION PANELon 11-05 Albumin [Mass/Vol] 3.5 g/dL Normal 3.4 - 4.8 [facility] [place] Comment on above: Performed By: #### 2 44079 #### [facility] [place],[address] [place] [address] 74693 B/C RATIO 9 ratio Normal 0 - 30 [facility] [place] Comment on above: Performed By: #### 2 14159 #### [facility] [place],[address] [place] [address] 04943 Calcium [Mass/Vol] 9.4 mg/dL Normal 8.6 - 10.2 [facility] [place] Comment on above: Performed By: #### 2 57273 #### [facility] [place],[address] [place] [address] 16850 Creatinine [Mass/Vol] 2.2 mg/dL High 0.7 - 1.3 [facility] Comment on above: Performed By: #### 2 22269 #### [facility] [place],[address] [place] [address] 93949 Glucose [Mass/Vol] 105 mg/dL Normal 74 - 106 [facility] [place] Comment on above: Performed By: #### 2 79409 #### [facility] [place],[address] [place] [address] 70615 Phosphate [Mass/Vol] 4.3 mg/dL Normal 2.7 - 4.9 [facility] [place] Comment on above: Performed By: #### 2 59216 #### [facility] [place],[address] [place], [place] [phone] RENAL FUNCTION PANEL Normal [facility] [place] Comment on above: Result Comment: JESSICA L FUNCTION PANEL Performed By: #### 2 52224 #### [facility] [place],[address] [place] [address] 41754 Urea nitrogen [Mass/Vol] 20 mg/dL Normal 6 - 20 [facility] [place] Comment on above: Performed By: #### 2 74043 #### [facility] [place],[address] [place] [address] 63234 URINALYSISon 11-05-2019 Bilirubin [Mass/Vol] Negative Normal NORMAL: NEGATIVE [facility] [place] Comment on above: Performed By: #### 2 56386 #### [facility] [place],[address] [place] [address] 07978 Blood Negative Normal NORMAL: NEGATIVE [facility] [place] Comment on above: Performed By: #### 2 20778 #### [facility] [place],[address] [place] [address] 49102 Clarity (U) clear Normal NORMAL: CLEAR [facility] [place] Comment on above: Performed By: #### 2 56854 #### [facility] [place],[address] [place], [place] [phone] Color (U) p.yel Normal NORMAL: YELLOW [facility] [place] Comment on above: Performed By: #### 2 45007 #### [facility] [place],[address] [place], [place] [phone] Glucose [Mass/Vol] NORM Normal NORMAL: NORMAL [facility] [place] Comment on above: Performed By: #### 2 77211 #### [facility] [place],[address] [place] [address] Ketone Negative Normal NORMAL: NEGATIVE [facility] [place] Comment on above: Performed By: #### 2 91084 #### [facility] [place],[address] [place] [address] Microscopic NOT INDICATED Normal [facility] [place] Comment on above: Performed By: #### 2 39832 #### [facility] [place],[address] [place] [address] Nitrite Ql (U) Negative Normal NORMAL: NEGATIVE [facility] [place] Comment on above: Performed By: #### 2 74032 #### [facility] [place],[address] [place] [address] pH (Bld) 6.5 Normal NORMAL: 5.0-8.0 [facility] [place] Comment on above: Performed By: #### 2 73740 #### [facility] [place],[address] [place] [address] Protein (U) [Mass/Vol] Negative Normal JENN L: NEGATIVE [facility] [place] Comment on above: Performed By: #### 2 73547 #### [facility] [place],[address] [place], [place] [phone] Sp Hillman 1.010 Normal NORMAL: 1.010-1.03 0 [facility] [place] Comment on above: Performed By: #### 2 14873 #### [facility] [place],[address] [place] [address] Specimen type Nom (Spec) UNSPECIFIED Normal [facility] [place] Comment on above: Performed By: #### 2 90710 #### [facility] [place],[address] [place] [address] 11693 Urobilinog NORM Normal NORMAL: NORMAL [facility] [place] Comment on above: Performed By: #### 2 80354 #### [facility] [place],[address] [place] [address] 30614 WBC (Bld) [#/Vol] Negative Normal NORMAL: NEGATIVE [facility] [place] Comment on above: Performed By: #### 2 37055 #### [facility] [facility],[address] [place] [address] 12779 URINE CREATININE AND PROTEIN RATIOon 11-05-2019 CREATININE UR 72.6 mg/dl Normal [facility] Comment on above: Performed By: #### 2 11574 #### [facility],[address] [place] [address] 14866 PC RATIO 0.07 mg/dL Normal 0.00 - 10.00 [facility] Comment on above: Performed By: #### 2 62461 #### [facility],[address] [place] [address] 53424 Protein (U) [Mass/Vol] mg/dL Normal 0.00 - 10.00 [facility] Comment on above: Performed By: #### 2 49005 #### [facility],[address] [place] [address] 93698 BMP with eGFRon 10-08-2019 Age - Reported 54 years Normal [facility] Comment on above: Performed By: #### 2 55312 #### [facility],[address] [place] [address] 53769 Anion gap [Moles/Vol] 12 mmol/L Normal 10 - 20 [facility] Comment on above: Performed By: #### 2 81894 #### [facility],[address] [place] [address] 50407 Calcium [Mass/Vol] 9.2 mg/dL Normal 8.6 - 10.2 [facility] Comment on above: Performed By: #### 2 88912 #### [facility],[address] [place] [address] 93634 Chloride [Moles/Vol] 107 mmol/L Normal 98 - 107 [facility] Comment on above: Performed By: #### 2 49778 #### [facility],[address] [place] [address] 25210 CO2 [Moles/Vol] 26.7 mmol/L Normal 21.0 - 31.0 [facility] Comment on above: Performed By: #### 2 96957 #### [facility],[address] [place] [address] 15967 Creatinine [Mass/Vol] 2.1 mg/dL High 0.7 - 1.3 [facility] Comment on above: Performed By: #### 2 31527 #### [facility],[address] [place] [address] 96878 GFR/1.73 sq M predicted among non-blacks MDRD (S/P/Bld) [Vol rate/Area] Normal [facility] Comment on above: Result Comment: BASI C METABOLIC PANEL Performed By: #### 2 04092 #### [address] [address] GFR/1.73 sq M predicted among non-blacks MDRD (S/P/Bld) [Vol rate/Area] 40 ML/MINUTE Low 60 - 999 [facility] Comment on above: Result Comment: ACCO RDING TO THE NATIONAL KIDNEY DISEASE EDUCATION PROGRAM(NKDE), A NORMAL eGFR IS A VALUE GREATER THAN OR EQUAL TO 60 ML/MIN/1.73 SQ METERS. CHRONIC KIDNEY DISEASE: <60mL/MIN/1.73 SQ METERS KIDNEY FAILURE: <15mL/MIN/1.73 SQ METERS THIS TEST SHOULD ONLY BE USED FOR PATIENTS 18 YEARS OF AGE AND OLDER. Performed By: #### 2 22417 #### [facility],[address] [place] [address] 06863 GFR/1.73 sq M predicted among non-blacks MDRD (S/P/Bld) [Vol rate/Area] 33 ML/MINUTE Low 60 - 999 [facility] Comment on above: Performed By: #### 2 75285 #### [facility],[address] [place] [address] 72294 Glucose [Mass/Vol] 106 mg/dL Normal 74 - 106 [facility] Comment on above: Performed By: #### 2 33205 #### [facility],[address] [place] [address] 02955 Potassium [Moles/Vol] 3.6 mmol/L Normal 3.5 - 5.1 [facility] Comment on above: Performed By: #### 2 60663 #### [facility],[address] [place] [address] 59753 Sodium [Moles/Vol] 142 mmol/L Normal 136 - 145 [facility] Comment on above: Performed By: #### 2 95709 #### [facility],[address] [place] [address] 47410 Urea nitrogen [Mass/Vol] 22 mg/dL High 6 - 20 [facility] Comment on above: Performed By: #### 2 82974 #### [facility],[address] [place] [address] 11784 CBC + DIFFon 10-08-2019 Basophils (Bld) [#/Vol] 0.10 x10EE3/UL Normal 0. 00 - 0.10 [facility] Comment on above: Performed By: #### 2 15235 #### [facility],[address] [place] [address] 22554 Basophils/100 WBC (Bld) 0.7 % Normal 0.0 - 2.0 [facility] Comment on above: Performed By: #### 2 33506 #### [facility],[address] [place] [address] 91693 CBC + DIFF Normal [facility] Comment on above: Result Comment: CBC- COMPLETE BLOOD COUNT Performed By: #### 2 21093 #### [facility],[address] [place] [address] 12876 Eosinophils (Bld) [#/Vol] 0.50 x10EE3/UL Normal 0.00 - 0.50 [facility] Comment on above: Performed By: #### 2 32658 #### [facility],[address] [place], [place] [phone] Eosinophils/100 WBC (Bld) 5.1 % Normal 0.0 - 7.0 [facility] Comment on above: Performed By: #### 2 73818 #### [facility],[address] [place], [place] [phone] Erythrocyte distribution width (RBC) [Ratio] 12.8 % Normal 12.0 - 15.6 [facility] Comment on above: Performed By: #### 2 62536 #### [facility],[address] [place], [place] [phone] Hematocrit (Bld) [Volume fraction] 37.6 % Low 40.0 - 52.0 [facility] Comment on above: Performed By: #### 2 34201 #### [facility],[address] [place] [address] 29197 Hemoglobin (Bld) [Mass/Vol] 12.5 g/dL Low 13.0 - 17.5 [facility] Comment on above: Performed By: #### 2 41602 #### [facility],[address] [place] [address] 82367 Lymphocytes (Bld) [#/Vol] 1.90 x10EE3/UL Normal 0.80 - 2.80 [facility] Comment on above: Performed By: #### 2 33473 #### [facility],[address] [place] [address] 99844 Lymphocytes/100 WBC (Bld) 18.6 % Low 20.0 - 45.0 [facility] Comment on above: Performed By: #### 2 20077 #### [facility],[address] [place] [address] 93644 MANUAL DIFF N/A Normal [facility] Comment on above: Performed By: #### 2 53223 #### [facility],[address] [place] [address] 73662 MCH (RBC) [Entitic mass] 31 pg Normal 27 - 33 [facility] Comment on above: Performed By: #### 2 79080 #### [facility],[address] [place] [address] 04580 MCHC (RBC) [Mass/Vol] 33 X10 3 Normal 32 - 36 [facility] Comment on above: Performed By: #### 2 02585 #### [facility],[address] [place] [address] 78031 MCV (RBC) [Entitic vol] 93 fL Normal 81 - 98 [facility] Comment on above: Performed By: #### 2 41561 #### [facility],[address] [place] [address] 68844 Monocytes (Bld) [#/Vol] 1.00 x10EE3/UL Normal 0. 20 - 1.00 [facility] Comment on above: Performed By: #### 2 11583 #### [facility],[address] [place] [address] 97403 MONOS % 9.4 % Normal 0.0 - 10.0 [facility] Comment on above: Performed By: #### 2 83186 #### [facility],[address] [place] [address] 19022 Morphology Crispin (Bld) [Interp] N/A Normal [facility] Comment on above: Performed By: #### 2 42734 #### [facility],[address] [place] [address] 96925 Neutrophils (Bld) [#/Vol] 6.90 x10EE3/UL Normal 1.50 - 7.10 [facility] Comment on above: Performed By: #### 2 38601 #### [facility],[address] [place] [address] 26886 Neutrophils/100 WBC (Bld) 66.2 % Normal 46.0 - 76.0 [facility] Comment on above: Performed By: #### 2 98050 #### [facility],[address] [place] [address] 37728 Platelet mean volume (Bld) [Entitic vol] 7.7 fL Normal 6.4 - 10.5 [facility] Comment on above: Result Comment: AUTO MATED DIFFERENTIAL Performed By: #### 2 91413 #### [facility],[address] [place] [address] 74935 Platelets (Bld) [#/Vol] 250 x10EE3/UL Normal 150 - 450 [facility] Comment on above: Performed By: #### 2 06169 #### [facility],[address] [place] [address] 93047 RBC (Bld) [#/Vol] 4.07 x 10EE6/UL Low 4.50 - 6.00 [facility] Comment on above: Performed By: #### 2 87046 #### [facility],[address] [place] [address] 90328 WBC (Bld) [#/Vol] 10.4 x 10EE3/UL Normal 4.5 - 10.8 [facility] Comment on above: Performed By: #### 2 17647 #### [facility],[address] [place] [address] 19396 CULTURE URINEon 10-08-2019 CULTURE URINE CULTURE URINE _URINE CULTURE_ M I C R O B I O L O G Y R E P O R T FINAL ------- Antimicrobial Susceptibility and Organism Identification Report -------- Specimen Number : [id number] Requested : 10/08/19 Specimen Source : URINE Collected : 10/08/19 08:30 [place] of [place]olation : MEME HUANG Received : 10/08/19 08:30 Requesting Physician : FLORECITA -- Patient/Specimen Tests and Comments Specimen Comments -------- -------- FINAL REPORT: NO GROWTH AT 48 HOURS -- Tech : Source : URINE ID # : [id number] FINAL Report Date : / / : Collected : 10/08/19 08:30 10/10/19.1115.BKO. 10/09/19.1011.BKO. 10/10/19.1115.BKO.COMPLETE Normal [facility] Comment on above: Performed By: #### 2 26625 #### [facility],[address] [place], [place] [phone] HEPATIC FUNCTION PANELon ALK PHOS 52 U/L Normal 38 - 126 [facility] Comment on above: Performed By: #### 2 28162 #### [facility],[address] [place] [address] 56389 ALT/SGPT 15 U/L Normal 10 - 40 [facility] Comment on above: Performed By: #### 2 77502 #### [facility],[address] [place], [place] [phone] AST/SGOT 9 U/L Low 13 - 39 [facility] Comment on above: Performed By: #### 2 63086 #### [facility],[address] [place] [address] 28664 Bilirubin [Mass/Vol] 0.3 mg/dL Normal 0.0 - 1.5 [facility] Comment on above: Performed By: #### 2 50542 #### [facility],[address] [place] [address] 55167 Bilirubin.direct [Mass/Vol] 0.1 mg/dL Normal 0.0 - 0.1 [facility] Comment on above: Performed By: #### 2 42871 #### [facility],[address] [place] [address] 19908 HEPATIC FUNCTION PANEL Normal [facility] Comment on above: Result Comment: HEPA TIC FUNCTION PROFILE Performed By: #### 2 63998 #### [facility],[address] [place] [address] 44746 Protein [Mass/Vol] 5.5 g/dL Low 6.4 - 8.3 [facility] Comment on above: Performed By: #### 2 09418 #### [facility],[address] [place] [address] 77026 LITHIUMon 10-08-2019 [place] [Moles/Vol] 0.6 mmol/L Normal 0.6 - 1.2 [facility] Comment on above: Performed By: #### 2 31593 #### [facility],[address] [place] [address] 38797 RENAL FUNCTION PANELon 10-08 Albumin [Mass/Vol] 3.5 g/dL Normal 3.4 - 4.8 [facility] Comment on above: Performed By: #### 2 59402 #### [facility],[address] [place] [address] 20098 B/C RATIO 10 ratio Normal 0 - 30 [facility] Comment on above: Performed By: #### 2 79638 #### [facility],[address] [place] [address] 32647 Calcium [Mass/Vol] 9.2 mg/dL Normal 8.6 - 10.2 [facility] Comment on above: Performed By: #### 2 30695 #### [facility],[address] [place] [address] 36911 Chloride [Moles/Vol] 107 mmol/L Normal 98 - 107 [facility] Comment on above: Performed By: #### 2 34726 #### [facility],[address] [place] [address] 92364 CO2 [Moles/Vol] 26.7 mmol/L Normal 21.0 - 31.0 [facility] Comment on above: Performed By: #### 2 39113 #### [facility],[address] [place] [address] 13885 Creatinine [Mass/Vol] 2.1 mg/dL High 0.7 - 1.3 [facility] Comment on above: Performed By: #### 2 72490 #### [facility],[address] [place] [address] 55012 Glucose [Mass/Vol] 106 mg/dL Normal 74 - 106 [facility] Comment on above: Performed By: #### 2 29757 #### [facility],[address] [place] [address] 79748 Phosphate [Mass/Vol] 4.7 mg/dL Normal 2.7 - 4.9 [facility] Comment on above: Performed By: #### 2 36584 #### [facility],[address] [place] [address] Potassium [Moles/Vol] 3.6 mmol/L Normal 3.5 - 5.1 [facility] Comment on above: Performed By: #### 2 60780 #### [facility],[address] [place] [address] RENAL FUNCTION PANEL Normal [facility] Comment on above: Result Comment: JESSICA L FUNCTION PANEL Performed By: #### 2 67879 #### [facility],[address] [place] [address] Sodium [Moles/Vol] 142 mmol/L Normal 136 - 145 [facility] Comment on above: Performed By: #### 2 85195 #### [facility],[address] [place] [address] Urea nitrogen [Mass/Vol] 22 mg/dL High 6 - 20 [facility] Comment on above: Performed By: #### 2 65474 #### [facility],[address] [place] [address] URINALYSISon 10-08-2019 Bilirubin [Mass/Vol] Negative Normal NORMAL: NEGATIVE [facility] Comment on above: Performed By: #### 2 39005 #### [facility],[address] [place], [place] [phone] Blood Negative Normal NORMAL: NEGATIVE [facility] Comment on above: Performed By: #### 2 46114 #### [facility],[address] [place], [place] [phone] Clarity (U) clear Normal NORMAL: CLEAR [facility] Comment on above: Performed By: #### 2 98776 #### [facility],[address] [place] [address] 59898 Color (U) p.yel Normal NORMAL: YELLOW [facility] Comment on above: Performed By: #### 2 19473 #### [facility],[address] [place] [address] 69907 Glucose [Mass/Vol] NORM Normal NORMAL: NORMAL [facility] Comment on above: Performed By: #### 2 08918 #### [facility],[address] [place] [address] 78136 Ketone Negative Normal NORMAL: NEGATIVE [facility] Comment on above: Performed By: #### 2 71947 #### [facility],[address] [place] [address] Microscopic NOT INDICATED Normal [facility] Comment on above: Performed By: #### 2 17056 #### [facility],[address] [place] [address] 42777 Nitrite Ql (U) Negative Normal NORMAL: NEGATIVE [facility] Comment on above: Performed By: #### 2 38050 #### [facility],[address] [place] [address] 26850 pH (Bld) 6 Normal NORMAL: 5.0-8.0 [facility] Comment on above: Performed By: #### 2 99536 #### [facility],[address] [place] [address] 59006 Protein (U) [Mass/Vol] Negative Normal JENN L: NEGATIVE [facility] Comment on above: Performed By: #### 2 65466 #### [facility],[address] [place] [address] 14031 Sp Hillman 1.015 Normal NORMAL: 1.010-1.03 0 [facility] Comment on above: Performed By: #### 2 05432 #### [facility],[address] [place] [address] Specimen type Nom (Spec) Clean catch Normal [facility] Comment on above: Performed By: #### 2 30363 #### [facility],[address] [place] [address] Urobilinog NORM Normal NORMAL: NORMAL [facility] Comment on above: Performed By: #### 2 10764 #### [facility],[address] [place] [address] WBC (Bld) [#/Vol] Negative Normal NORMAL: NEGATIVE [facility] Comment on above: Performed By: #### 2 78822 #### [facility],[address] [place] [address] CBC + DIFFon 09-10-2019 Basophils (Bld) [#/Vol] 0.10 x10EE3/UL Normal 0. 00 - 0.10 [facility] Comment on above: Performed By: #### 2 65456 #### [facility],[address] [place] [address] Basophils/100 WBC (Bld) 1.0 % Normal 0.0 - 2.0 [facility] Comment on above: Performed By: #### 2 82785 #### [facility],[address] [place] [address] CBC + DIFF Normal [facility] Comment on above: Result Comment: CBC- COMPLETE BLOOD COUNT Performed By: #### 2 15601 #### [facility],[address] [place] [address] Eosinophils (Bld) [#/Vol] 0.50 x10EE3/UL Normal 0.00 - 0.50 [facility] Comment on above: Performed By: #### 2 71721 #### [facility],[address] [place] [address] Eosinophils/100 WBC (Bld) 6.3 % Normal 0.0 - 7.0 [facility] Comment on above: Performed By: #### 2 33604 #### [facility],[address] [place], [place] [phone] Erythrocyte distribution width (RBC) [Ratio] 13.3 % Normal 12.0 - 15.6 [facility] Comment on above: Performed By: #### 2 90387 #### [facility],[address] [place] [address] Hematocrit (Bld) [Volume fraction] 36.9 % Low 40.0 - 52.0 [facility] Comment on above: Performed By: #### 2 22996 #### [facility],[address] [place] [address] Hemoglobin (Bld) [Mass/Vol] 12.5 g/dL Low 13.0 - 17.5 [facility] Comment on above: Performed By: #### 2 96649 #### [place] [id number] Lymphocytes (Bld) [#/Vol] 2.20 x10EE3/UL Normal 0.80 - 2.80 [facility] Comment on above: Performed By: #### 2 58228 #### [facility],[address] [place], [place] [phone] Lymphocytes/100 WBC (Bld) 25.0 % Normal 20.0 - 45.0 [facility] Comment on above: Performed By: #### 2 02652 #### [facility],[address] [place], [place] [phone] MANUAL DIFF N/A Normal [facility] Comment on above: Performed By: #### 2 47105 #### [facility],[address] [place], [place] [phone] MCH (RBC) [Entitic mass] 31 pg Normal 27 - 33 [facility] Comment on above: Performed By: #### 2 92234 #### [facility],[address],[place] [address] MCHC (RBC) [Mass/Vol] 34 X10 3 Normal 32 - 36 [facility] Comment on above: Performed By: #### 2 22137 #### [facility],[address] [place] [address] 83586 MCV (RBC) [Entitic vol] 93 fL Normal 81 - 98 [facility] Comment on above: Performed By: #### 2 61106 #### [facility],[address] [place] [address] 30952 Monocytes (Bld) [#/Vol] 0.90 x10EE3/UL Normal 0. 20 - 1.00 [facility] Comment on above: Performed By: #### 2 32616 #### [facility],[address] [place] [address] 11488 MONOS % 10.6 % High 0.0 - 10.0 [facility] Comment on above: Performed By: #### 2 43527 #### [facility],[address] [place] [address] 63256 Morphology Cris[place] (Bld) [Interp] N/A Normal [facility] Comment on above: Performed By: #### 2 81059 #### [facility],[address] [place] [address] 28754 Neutrophils (Bld) [#/Vol] 5.00 x10EE3/UL Normal 1.50 - 7.10 [facility] Comment on above: Performed By: #### 2 28503 #### [facility],[address] [place] [address] 36914 Neutrophils/100 WBC (Bld) 57.1 % Normal 46.0 - 76.0 [facility] Comment on above: Performed By: #### 2 82195 #### [facility],[address] [place] [address] 72457 Platelet mean volume (Bld) [Entitic vol] 7.6 fL Normal 6.4 - 10.5 [facility] Comment on above: Result Comment: AUTO MATED DIFFERENTIAL Performed By: #### 2 22633 #### [facility],[address] [place] [address] 94944 Platelets (Bld) [#/Vol] 236 x10EE3/UL Normal 150 - 450 [facility] Comment on above: Performed By: #### 2 41299 #### [facility],[address] [place], [place] [address] RBC (Bld) [#/Vol] 3.99 x 10EE6/UL Low 4.50 - 6.00 [facility] Comment on above: Performed By: #### 2 16712 #### [facility],[address] [place], [place] [id number] WBC (Bld) [#/Vol] 8.7 x 10EE3/UL Normal 4.5 - 10.8 [facility] Comment on above: Performed By: #### 2 43628 #### [facility],[address] [place] [address] CULTURE URINEon 09-10-2019 CULTURE URINE CULTURE URINE _URINE CULTURE_ M I C R O B I O L O G Y R E P O R T FINAL ------- Antimicrobial Susceptibility and Organism Identification Report -------- Specimen Number : [id number] Requested : 09/10/19 Specimen Source : CLEAN CATCH URINE Collected : 09/10/19 04:30 Arredondo of Isolation : MEME HUANG Received : 09/10/19 04:30 Requesting Physician : FLORECITA -- Patient/Specimen Tests and Comments Specimen Comments -------- -------- FINAL REPORT: NO GROWTH AT 48 HOURS -- Tech : Source : CLEAN CATCH URINE ID # : [id number] FINAL Report Date : / / : Collected : 09/10/19 04:30 09/12/19.BKO. 09/11/19.0717.JLN. 09/12/19.BKO.COMPLETE 09/12/19.BKO.to [place] via fax Normal [facility] Comment on above: Performed By: #### 2 15590 #### [facility],[address] [place] [address] 04636 LITHIUMon 09-10-2019 [place] [Moles/Vol] 0.6 mmol/L Normal 0.6 - 1.2 [facility] Comment on above: Performed By: #### 2 35914 #### [facility],[address] [place] [address] 38627 RENAL FUNCTION PANEL WITH eG FRon 09-10-2019 Age - Reported 54 years Normal [facility] Comment on above: Performed By: #### 2 38340 #### [facility],[address] [place] [address] 64390 Albumin [Mass/Vol] 3.4 g/dL Normal 3.4 - 4.8 [facility] Comment on above: Performed By: #### 2 91123 #### [facility],[address] [place] [address] 07818 B/C RATIO 11 ratio Normal 0 - 30 [facility] Comment on above: Performed By: #### 2 27535 #### [facility],[address] [place] [address] 35208 Calcium [Mass/Vol] 9.2 mg/dL Normal 8.6 - 10.2 [facility] Comment on above: Performed By: #### 2 75985 #### [facility],[address] [place] [address] 20608 Chloride [Moles/Vol] 107 mmol/L Normal 98 - 107 [facility] Comment on above: Performed By: #### 2 43563 #### [facility],[address] [place] [address] 27375 CO2 [Moles/Vol] 25.3 mmol/L Normal 21.0 - 31.0 [facility] Comment on above: Performed By: #### 2 20054 #### [facility],[address] [place] [address] 78814 Creatinine [Mass/Vol] 2.2 mg/dL High 0.7 - 1.3 [facility] Comment on above: Performed By: #### 2 07865 #### [facility],[address] [place] [address] 07102 GFR/1.73 sq M predicted among non-blacks MDRD (S/P/Bld) [Vol rate/Area] 31 ML/MINUTE Low 60 - 999 [facility] Comment on above: Performed By: #### 2 47334 #### [facility],[address] [place] [address] 98218 GFR/1.73 sq M predicted among non-blacks MDRD (S/P/Bld) [Vol rate/Area] 38 ML/MINUTE Low 60 - 999 [facility] Comment on above: Result Comment: ACCO RDING TO THE NATIONAL KIDNEY DISEASE EDUCATION PROGRAM(NKDE), A NORMAL eGFR IS A VALUE GREATER THAN OR EQUAL TO 60 ML/MIN/1.73 SQ METERS. CHRONIC KIDNEY DISEASE: <60mL/MIN/1.73 SQ METERS KIDNEY FAILURE: <15mL/MIN/1.73 SQ METERS THIS TEST SHOULD ONLY BE USED FOR PATIENTS 18 YEARS OF AGE AND OLDER. Performed By: #### 2 12551 #### [facility],[address] [place] [address] 11437 Glucose [Mass/Vol] 96 mg/dL Normal 74 - 106 [facility] Comment on above: Performed By: #### 2 87233 #### [facility],[address] [place] [address] 93496 Phosphate [Mass/Vol] 4.5 mg/dL Normal 2.7 - 4.9 [facility] Comment on above: Performed By: #### 2 14012 #### [facility],[address] [place] [address] 56794 Potassium [Moles/Vol] 3.5 mmol/L Normal 3.5 - 5.1 [facility] Comment on above: Performed By: #### 2 40172 #### [facility],[address] [place] [address] 43079 RENAL FUNCTION PANEL WITH eGFR Normal [facility] Comment on above: Result Comment: JESSICA L FUNCTION PANEL Performed By: #### 2 98368 #### [facility],[address] [place] [address] 63554 Sodium [Moles/Vol] 141 mmol/L Normal 136 - 145 [facility] Comment on above: Performed By: #### 2 83520 #### [facility],[address] [place] [address] 86190 Urea nitrogen [Mass/Vol] 24 mg/dL High 6 - [facility] Comment on above: Performed By: #### 2 56652 #### [facility],[address] [place] [address] 68496 URINALYSISon 09-10-2019 Bilirubin [Mass/Vol] Negative Normal NORMAL: NEGATIVE [facility] Comment on above: Performed By: #### 2 28014 #### [facility],[address] [place] [address] 88365 Blood Negative Normal NORMAL: NEGATIVE [facility] Comment on above: Performed By: #### 2 01144 #### [facility],[address] [place] [address] 03423 Clarity (U) clear Normal NORMAL: CLEAR [facility] Comment on above: Performed By: #### 2 47616 #### [facility],[address] [place] [address] 53205 Color (U) p.yel Normal NORMAL: YELLOW [facility] Comment on above: Performed By: #### 2 53575 #### [facility],[address] [place] [address] 14007 Glucose [Mass/Vol] NORM Normal NORMAL: NORMAL [facility] Comment on above: Performed By: #### 2 09416 #### [facility],[address] [place] [address] 30484 Ketone Negative Normal NORMAL: NEGATIVE [facility] Comment on above: Performed By: #### 2 23261 #### [facility],[address] [place] [address] 14445 Microscopic NOT INDICATED Normal [facility] Comment on above: Performed By: #### 2 35284 #### [facility],[address] [place] [address] 97329 Nitrite Ql (U) Negative Normal NORMAL: NEGATIVE [facility] Comment on above: Performed By: #### 2 39550 #### [facility],[address] [place] [address] pH (Bld) 6.5 Normal NORMAL: 5.0-8.0 [facility] Comment on above: Performed By: #### 2 53305 #### [facility],[address] [place] [address] Protein (U) [Mass/Vol] Negative Normal JENN L: NEGATIVE [facility] Comment on above: Performed By: #### 2 48795 #### [facility],[address] [place] [address] Sp Hillman 1.010 Normal NORMAL: 1.010-1.03 0 [facility] Comment on above: Performed By: #### 2 28590 #### [facility],[address] [place] [address] Specimen type Nom (Spec) Clean catch Normal [facility] Comment on above: Performed By: #### 2 26928 #### [facility],[address] [place] [address] Urobilinog NORM Normal NORMAL: NORMAL [facility] Comment on above: Performed By: #### 2 80315 #### [facility],[address] [place] [address] WBC (Bld) [#/Vol] Negative Normal NORMAL: NEGATIVE [facility] Comment on above: Performed By: #### 2 60478 #### [facility],[address] [place] [address] URINE CREATININE AND PROTEIN RATIOon 09-10-2019 CREATININE UR 58.3 mg/dl Normal [facility] Comment on above: Performed By: #### 2 55316 #### [facility],[address] [place] [address] PC RATIO 0.09 mg/dL Normal 0.00 - 10.00 [facility] Comment on above: Performed By: #### 2 85482 #### [facility],[address] [place] [address] 56163 Protein (U) [Mass/Vol] mg/dL Normal 0.00 - 10.00 [facility] Comment on above: Performed By: #### 2 16173 #### [facility],[address] [place] [address] 44630 BMP with eGFRon 08-31-2019 Age - Reported 54 years Normal [facility] Comment on above: Performed By: #### 2 54517 #### [facility],[address] [place] [address] 40102 Anion gap [Moles/Vol] 12 mmol/L Normal 10 - 20 [facility] Comment on above: Performed By: #### 2 46815 #### [facility],[address] [place] [address] 35693 Calcium [Mass/Vol] 9.4 mg/dL Normal 8.6 - 10.2 [facility] Comment on above: Performed By: #### 2 55080 #### [facility],[address] [place] [address] 54945 Chloride [Moles/Vol] 104 mmol/L Normal 98 - 107 [facility] Comment on above: Performed By: #### 2 96452 #### [facility],[address] [place] [address] 19983 CO2 [Moles/Vol] 26.9 mmol/L Normal 21.0 - 31.0 [facility] Comment on above: Performed By: #### 2 22803 #### [facility],[address] [place] [address] 95552 Creatinine [Mass/Vol] 2.4 mg/dL High 0.7 - 1.3 [facility] Comment on above: Performed By: #### 2 82090 #### [facility],[address],[place] [address] GFR/1.73 sq M predicted among non-blacks MDRD (S/P/Bld) [Vol rate/Area] Normal [facility] Comment on above: Result Comment: BASI C METABOLIC PANEL Performed By: #### 2 29885 #### [facility],[address] [place] [address] 12973 GFR/1.73 sq M predicted among non-blacks MDRD (S/P/Bld) [Vol rate/Area] 28 ML/MINUTE Low 60 - 999 [facility] Comment on above: Performed By: #### 2 23183 #### [facility],[address] [place] [address] 26978 GFR/1.73 sq M predicted among non-blacks MDRD (S/P/Bld) [Vol rate/Area] 34 ML/MINUTE Low 60 - 999 [facility] Comment on above: Result Comment: ACCO RDING TO THE NATIONAL KIDNEY DISEASE EDUCATION PROGRAM(NKDE), A NORMAL eGFR IS A VALUE GREATER THAN OR EQUAL TO 60 ML/MIN/1.73 SQ METERS. CHRONIC KIDNEY DISEASE: <60mL/MIN/1.73 SQ METERS KIDNEY FAILURE: <15mL/MIN/1.73 SQ METERS THIS TEST SHOULD ONLY BE USED FOR PATIENTS 18 YEARS OF AGE AND OLDER. Performed By: #### 2 79983 #### [facility],[address] [place] [address] 11283 Glucose [Mass/Vol] 106 mg/dL Normal 74 - 106 [facility] Comment on above: Performed By: #### 2 54669 #### [facility],[address] [place] [address] 92657 Potassium [Moles/Vol] 3.5 mmol/L Normal 3.5 - 5.1 [facility] Comment on above: Performed By: #### 2 55230 #### [facility],[address] [place] [address] 71787 Sodium [Moles/Vol] 139 mmol/L Normal 136 - 145 [facility] Comment on above: Performed By: #### 2 55163 #### [facility],[address] [place] [address] 12503 Urea nitrogen [Mass/Vol] 25 mg/dL High 6 - 20 [facility] Comment on above: Performed By: #### 2 88599 #### [facility],[address] [place], [place] [id number] HGB A1C [CCL]on 08-26-2019 HbA1c (Bld) [Mass fraction] 117 mg/dL Normal [facility] Comment on above: Result Comment: eAG: (Estimated average glucose) is a calculated value from HgbA1c and is employee relations representative of the average blood glucose level in the last 2-3 month period. [facility] [employer] [address] [place] [id number] Peyton Lang M.D. [id number] Performed By: #### 2 07379 #### [facility],[address] [place], [place] [id number] HbA1c (Bld) [Mass fraction] 5.7 % High 4.3-5.6 [facility] Comment on above: Result Comment: Amer [place] Diabetes Association guidelines indicate that patients with HgbA1c in the range 5.7-6.4% are at increased risk for development of diabetes, and intervention by lifestyle modification may be beneficial. HgbA1c greater or equal to 6.5% is considered diagnostic of diabetes. Performed By: #### 2 63015 #### [facility],[address] [place] [address] 18001 Hemoglobin A1con 08-26-2019 HbA1c (Bld) [Mass fraction] 5.7 % High 4.3-5.6 [facility] Comment on above: Performed By: #### H BA1C #### [facility] Routine Lab [address] [place] [id number] HbA1c (Bld) [Mass fraction] 117 mg/dL Normal [facility] Comment on above: Performed By: #### H BA1C #### [facility] [address] [place], [place] [address] RENAL FUNCTION PANELon 08-14 Albumin [Mass/Vol] 3.2 g/dL Low 3.4 - 4.8 [facility] Comment on above: Performed By: #### 2 42979 #### [facility],[address] [place] [address] 34054 B/C RATIO 13 ratio Normal 0 - 30 [facility] Comment on above: Performed By: #### 2 85334 #### [facility],[address] [place] [address] 87674 Calcium [Mass/Vol] 8.8 mg/dL Normal 8.6 - 10.2 [facility] Comment on above: Performed By: #### 2 51283 #### [facility],[address] [place] [address] 65671 Chloride [Moles/Vol] 105 mmol/L Normal 98 - 107 [facility] Comment on above: Performed By: #### 2 91305 #### [facility],[address] [place] [address] 37644 CO2 [Moles/Vol] 29.8 mmol/L Normal 21.0 - 31.0 [facility] Comment on above: Performed By: #### 2 29181 #### [facility],[address] [place] [address] 82487 Creatinine [Mass/Vol] 2.0 mg/dL High 0.7 - 1.3 [facility] Comment on above: Performed By: #### 2 45403 #### [facility],[address] [place] [address] 80509 Glucose [Mass/Vol] 78 mg/dL Normal 74 - 106 [facility] Comment on above: Performed By: #### 2 53540 #### [facility],[address] [place] [address] 61281 Phosphate [Mass/Vol] 4.8 mg/dL Normal 2.7 - 4.9 [facility] Comment on above: Performed By: #### 2 54202 #### [facility],[address] [place] [address] Potassium [Moles/Vol] 3.9 mmol/L Normal 3.5 - 5.1 [facility] Comment on above: Performed By: #### 2 67864 #### [facility],[address] [place] [address] RENAL FUNCTION PANEL Normal [facility] Comment on above: Result Comment: JESSICA L FUNCTION PANEL Performed By: #### 2 60252 #### [facility],[address] [place] [address] Sodium [Moles/Vol] 141 mmol/L Normal 136 - 145 [facility] Comment on above: Performed By: #### 2 39401 #### [facility],[address] [place] [address] Urea nitrogen [Mass/Vol] 25 mg/dL High 6 - 20 [facility] Comment on above: Performed By: #### 2 30746 #### [place] [address] CBC (NO DIFF)on 08-06-2019 CBC (NO DIFF) Normal [facility] Comment on above: Result Comment: CBC( WITHOUT DIFFERENTIAL) Performed By: #### 2 52160 #### [facility],[address] [place], [place] [address] Erythrocyte distribution width (RBC) [Ratio] 13.2 % Normal 12.0 - 15.6 [facility] Comment on above: Performed By: #### 2 96932 #### [place] [address] Hematocrit (Bld) [Volume fraction] 37.7 % Low 40.0 - 52.0 [facility] Comment on above: Performed By: #### 2 71874 #### [facility],[address] [place] [address] Hemoglobin (Bld) [Mass/Vol] 12.9 g/dL Low 13.0 - 17.5 [facility] Comment on above: Performed By: #### 2 55534 #### [facility],[address] [place] [address] 08094 MCH (RBC) [Entitic mass] 32 pg Normal 27 - 33 [facility] Comment on above: Performed By: #### 2 11253 #### [facility],[address] [place] [address] 61745 MCHC (RBC) [Mass/Vol] 34 X10 3 Normal 32 - 36 [facility] Comment on above: Performed By: #### 2 35904 #### [facility],[address] [place] [address] 09210 MCV (RBC) [Entitic vol] 94 fL Normal 81 - 98 [facility] Comment on above: Performed By: #### 2 64978 #### [facility],[address] [place] [address] 38758 Platelet mean volume (Bld) [Entitic vol] 7.3 fL Normal 6.4 - 10.5 [facility] Comment on above: Performed By: #### 2 95100 #### [facility],[address] [place] [address] 66230 Platelets (Bld) [#/Vol] 166 x10EE3/UL Normal 150 - 450 [facility] Comment on above: Performed By: #### 2 80867 #### [facility],[address] [place] [address] 26102 RBC (Bld) [#/Vol] 4.00 x 10EE6/UL Low 4.50 - 6.00 [facility] Comment on above: Performed By: #### 2 53134 #### [facility],[address] [place] [address] 00429 WBC (Bld) [#/Vol] 8.7 x 10EE3/UL Normal 4.5 - 10.8 Gerald gregg [facility] Comment on above: Performed By: #### 2 78921 #### Johan [facility],[address] [place] [address] 18980 CULTURE URINEon 08-06-2019 CULTURE URINE CULTURE URINE _URINE CULTURE_ M I C R O B I O L O G Y R E P O R T FINAL ------- Antimicrobial Susceptibility and Organism Identification Report -------- Specimen Number : [id number] Requested : 08/06/19 Specimen Source : CLEAN CATCH URINE Collected : 08/06/19 03:10 [place] of Isolation : MEME HUANG Received : 08/06/19 03:10 Requesting Physician : FLORECITA -- Patient/Specimen Tests and Comments Specimen Comments -------- -------- FINAL REPORT: NO GROWTH AT 48 HOURS -- Tech : Source : CLEAN CATCH URINE ID # : [id number] FINAL Report Date : / / : Collected : 08/06/19 03:10 08/08/19.1104.BKO. 08/07/19.0711.JLN. 08/08/19.1105.BKO.COMPLETE Normal [facility] Comment on above: Performed By: #### 2 09838 #### [facility],[address] [place] [address] LITHIUMon 08-06-2019 [place] [Moles/Vol] 0.6 mmol/L Normal 0.6 - 1.2 [facility] Comment on above: Performed By: #### 2 11628 #### [facility],[address] [place], [place] [id number] MR MRI BRAIN W/O CONTRASTon 08-06-2019 MR MRI BRAIN W/O CONTRAST [place] [id number] Patient: REGGIE LEÓN Phone#: : 1965 Age: 54 Gender: M Pt. Type: Out Account: [id number] Location: Ordering: HODA POOLELucia Exam Date: 08/06/2019/8:56 Family Phys: Charge Code: 085548 Physician: [place] Order #: [id number] DLP Dose#: PROCEDURE: MRI BRAIN WITHOUT CONTRAST COMPARISON: None. INDICATIONS: Unsteady gait TECHNIQUE: A variety of imaging planes and parameters were utilized for visualization of suspected pathology. Images were performed without contrast. FINDINGS: CEREBRUM: No edema, hemorrhage, mass, acute infarction, or inappropriate atrophy. CEREBELLUM: No edema, hemorrhage, mass, acute infarction, or inappropriate atrophy. BRAINSTEM: No edema, hemorrhage, mass, acute infarction, or inappropriate atrophy. CSF SPACES: Ventricles, cisterns, and sulci are appropriate for age. No hydrocephalus, subarachnoid hemorrhage, or mass. SKULL: No mass or other significant visible lesion. SINUSES: There is mild mucosal thickening in the ethmoid sinuses. Mucosal thickening is present at the apex of the left mastoid. ORBITS: Limited views are unremarkable. OTHER: Negative. CONCLUSION: 1. There is no evidence of acute intracranial abnormality. 2. Mucosal thickening is present in the ethmoid sinuses and left mastoid. Dictated by: Mireya Momin MD on 08/06/2019 at 9:51 Approved by: Mireya Momin MD on 08/06/2019 at 9:51 Normal [facility] RENAL FUNCTION PANELon 08-06 Albumin [Mass/Vol] 3.3 g/dL Low 3.4 - 4.8 [facility] Comment on above: Performed By: #### 2 74265 #### [facility],[address] [place] [address] 90439 B/C RATIO 11 ratio Normal 0 - 30 [facility] Comment on above: Performed By: #### 2 93713 #### [facility],[address] [place] [address] 41863 Calcium [Mass/Vol] 8.9 mg/dL Normal 8.6 - 10.2 [facility] Comment on above: Performed By: #### 2 06434 #### [facility],[address] [place] [address] 74901 Chloride [Moles/Vol] 107 mmol/L Normal 98 - 107 [facility] Comment on above: Performed By: #### 2 84980 #### [facility],[address] [place] [address] [id number] CO2 [Moles/Vol] 26.8 mmol/L Normal 21.0 - 31.0 [facility] Comment on above: Performed By: #### 2 [id number] #### [facility],[address] [place] [address] 90470 Creatinine [Mass/Vol] 2.2 mg/dL High 0.7 - 1.3 [facility] Comment on above: Performed By: #### 2 [id number] #### [facility],[address] [place] [address] 20168 Glucose [Mass/Vol] 84 mg/dL Normal 74 - 106 [facility] Comment on above: Performed By: #### 2 [id number] #### [facility],[address] [place] [address] 44706 Phosphate [Mass/Vol] 3.9 mg/dL Normal 2.7 - 4.9 [facility] Comment on above: Performed By: #### 2 [id number] #### [facility],[address] [place] [address] 82320 Potassium [Moles/Vol] 4.1 mmol/L Normal 3.5 - 5.1 [facility] Comment on above: Performed By: #### 2 [id number] #### [facility],[address] [place] [address] 26153 RENAL FUNCTION PANEL Normal [facility] Comment on above: Result Comment: JESSICA L FUNCTION PANEL Performed By: #### 2 [id number] #### [facility],[address] [place] [address] 99699 Sodium [Moles/Vol] 141 mmol/L Normal 136 - 145 [facility] Comment on above: Performed By: #### 2 82611 #### [facility],[address] [place] [address] 82857 Urea nitrogen [Mass/Vol] 25 mg/dL High 6 - 20 [facility] Comment on above: Performed By: #### 2 22640 #### [facility],[address] [place] [address] 33760 URINALYSISon 08-06-2019 Bilirubin [Mass/Vol] Negative Normal NORMAL: NEGATIVE [facility] Comment on above: Performed By: #### 2 [id number] #### [facility],[address] [place] [address] 64142 Blood Negative Normal NORMAL: NEGATIVE [facility] Comment on above: Performed By: #### 2 [id number] #### [facility],[address] [place] [address] 46649 Clarity (U) clear Normal NORMAL: CLEAR [facility] Comment on above: Performed By: #### 2 [id number] #### [facility],[address] [place] [address] 37379 Color (U) p.yel Normal NORMAL: YELLOW [facility] Comment on above: Performed By: #### 2 10726 #### [facility],[address] [place] [address] 95667 Glucose [Mass/Vol] NORM Normal NORMAL: NORMAL [facility] Comment on above: Performed By: #### 2 [id number] #### [facility],[address] [place] [address] 87111 Ketone Negative Normal NORMAL: NEGATIVE [facility] Comment on above: Performed By: #### 2 [id number] #### [facility],[address] [place] [address] 66767 Microscopic NOT Normal [facility] Comment on above: Performed By: #### 2 [id number] #### [facility],[address] [place] [address] 65774 Nitrite Ql (U) Negative Normal NORMAL: NEGATIVE [facility] Comment on above: Performed By: #### 2 [id number] #### [facility],[address] [place] [address] 42411 pH (Bld) 8 Normal NORMAL: 5.0-8.0 [facility] Comment on above: Performed By: #### 2 96365 #### [facility],[address] [place] [address] 04200 Protein (U) [Mass/Vol] Negative Normal JENN L: NEGATIVE [facility] Comment on above: Performed By: #### 2 66827 #### [facility],[address] [place] [address] Sp Hillman 1.010 Normal NORMAL: 1.010-1.03 0 [facility] Comment on above: Performed By: #### 2 07512 #### [facility],[address] [place] [address] Specimen type Nom (Spec) Clean catch Normal [facility] Comment on above: Performed By: #### 2 [id number] #### [facility],[address] [place] [address] Urobilinog NORM Normal NORMAL: NORMAL [facility] Comment on above: Performed By: #### 2 [id number] #### [facility],[address] [place] [address] WBC (Bld) [#/Vol] Negative Normal NORMAL: NEGATIVE [facility] Comment on above: Performed By: #### 2 [id number] #### [facility],[address] [place] [address] URINE CREATININE AND PROTEIN RATIOon 08-06-2019 CREATININE UR 35.5 mg/dl Normal [facility] Comment on above: Performed By: #### 2 74244 #### [facility],[address] [place] [address] PC RATIO 0.11 mg/dL Normal 0.00 - 10.00 [facility] Comment on above: Performed By: #### 2 88520 #### [facility],[address] [place] [address] 46208 Protein (U) [Mass/Vol] mg/dL Normal 0.00 - 10.00 [facility] Comment on above: Performed By: #### 2 96981 #### [facility],[address] [place] [address] 81686 Ammoniaon 03-19-2019 Ammonia mass conc (P) 34 umol/L Normal 16-60 [facility] Comment on above: Performed By: #### L ITH #### [facility] [address] [place] [address] Basic Metabolic Panelon 05-0 Anion gap molar conc 13 mmol/L Normal 9-15 [facility] Comment on above: Result Comment: Effe ctive: 12/21/2018 New reference range for this analyte has been established. Performed By: #### L ITH #### [facility] [address] [place] [address] Calcium mass conc 8.8 mg/dL Normal 8.5-9.9 [facility] Comment on above: Result Comment: Effe ctive: 12/21/2018 New reference range for this analyte has been established. Performed By: #### L ITH #### [facility] [address] [place] [address] Chloride molar conc 106 mmol/L Normal 95-107 [facility] Comment on above: Result Comment: Effe ctive: 12/21/2018 New reference range for this analyte has been established. Performed By: #### L ITH #### [facility] [address] [place] [address] CO2 molar conc 22 mmol/L Normal 20-31 [facility] Comment on above: Result Comment: Effe ctive: 12/21/2018 New reference range for this analyte has been established. Performed By: #### L ITH #### [facility] [address] [place] [address] Creatinine mass conc 1.78 mg/dL Critically high 0.70-1.20 [facility] Comment on above: Performed By: #### L ITH #### [facility] [address] [place] [address] GFR/1.73 sq M predicted among blacks MDRD vol rate/area (S/P/Bld) 48.1 mL/min/{1.73_m2} Low >60 [facility] Comment on above: Result Comment: >60 mL/min/1.73m2 EGFR, calc. for ages 18 and older using the MDRD formula (not corrected for weight), is valid for stable renal function. Performed By: #### L ITH #### [facility] [address] [place] [address] GFR/1.73 sq M.predicted MDRD vol rate/area 39.8 mL/min/{1.73_m2} Low >60 [facility] Comment on above: Result Comment: >60 mL/min/1.73m2 EGFR, calc. for ages 18 and older using the MDRD formula (not corrected for weight), is valid for stable renal function. Performed By: #### L ITH #### [facility] [address] [place] [address] Glucose mass conc 84 mg/dL Normal 70-99 [facility] Comment on above: Result Comment: Effe ctive: 12/21/2018 New reference range for this analyte has been established. Performed By: #### L ITH #### [facility] [address] [place] [address] Potassium molar conc 4.4 mmol/L Normal 3.4-4.9 [facility] Comment on above: Result Comment: Effe ctive: 12/21/2018 New reference range for this analyte has been established. Performed By: #### L ITH #### [facility] [address] [place] [address] Sodium molar conc 141 mmol/L Normal 135-144 [facility] Comment on above: Result Comment: Effe ctive: 12/21/2018 New reference range for this analyte has been established. Performed By: #### L ITH #### [facility] [address] [place] [address] Urea nitrogen mass conc 25 mg/dL Critically high 6-20 [facility] Comment on above: Performed By: #### L ITH #### [facility] [address] [place] [address] Valproic Acid /Depakene Leve rahul 03-19-2019 Protein mass conc 62.5 ug/mL Normal 50.0-100.0 [facility] Comment on above: Performed By: #### L ITH #### [facility] [address] [place] [address] Basic Metabolic Panelon 05-0 Anion gap molar conc 14 mmol/L Normal 9-15 [facility] Comment on above: Result Comment: Effe ctive: 12/21/2018 New reference range for this analyte has been established. Performed By: #### L ITH #### [facility] [address] [place] [address] Calcium mass conc 9.1 mg/dL Normal 8.5-9.9 [facility] Comment on above: Result Comment: Effe ctive: 12/21/2018 New reference range for this analyte has been established. Performed By: #### L ITH #### [facility] [address] [place] [address] Chloride molar conc 107 mmol/L Normal 95-107 [facility] Comment on above: Result Comment: Effe ctive: 12/21/2018 New reference range for this analyte has been established. Performed By: #### L ITH #### [facility] [address] [place] [address] CO2 molar conc 22 mmol/L Normal 20-31 [facility] Comment on above: Result Comment: Effe ctive: 12/21/2018 New reference range for this analyte has been established. Performed By: #### L ITH #### [facility] [address] [place] [address] Creatinine mass conc 2.32 mg/dL Critically high 0.70-1.20 [facility] Comment on above: Performed By: #### L ITH #### [facility] [address] [place] [address] GFR/1.73 sq M predicted among blacks MDRD vol rate/area (S/P/Bld) 35.4 mL/min/{1.73_m2} Low >60 [facility] Comment on above: Result Comment: >60 mL/min/1.73m2 EGFR, calc. for ages 18 and older using the MDRD formula (not corrected for weight), is valid for stable renal function. Performed By: #### L ITH #### [facility] [address] [place] [address] GFR/1.73 sq M.predicted MDRD vol rate/area 29.3 mL/min/{1.73_m2} Low >60 [facility] Comment on above: Result Comment: >60 mL/min/1.73m2 EGFR, calc. for ages 18 and older using the MDRD formula (not corrected for weight), is valid for stable renal function. Performed By: #### L ITH #### [facility] [address] [place] [address] Glucose mass conc 97 mg/dL Normal 70-99 [facility] Comment on above: Result Comment: Effe ctive: 12/21/2018 New reference range for this analyte has been established. Performed By: #### L ITH #### [facility] [address] [address] Potassium molar conc 4.5 mmol/L Normal 3.4-4.9 [facility] Comment on above: Result Comment: Effe ctive: 12/21/2018 New reference range for this analyte has been established. Performed By: #### L ITH #### [facility] [address] [place] [address] Sodium molar conc 143 mmol/L Normal 135-144 [facility] Comment on above: Result Comment: Effe ctive: 12/21/2018 New reference range for this analyte has been established. Performed By: #### L ITH #### [facility] [address] [place] [address] Urea nitrogen mass conc 29 mg/dL Critically high 6-20 [facility] Comment on above: Performed By: #### L ITH #### [facility] [address] [place] [address] Basic Metabolic Panelon 05-0 Anion gap molar conc 10 mmol/L Normal 9-15 [facility] Comment on above: Result Comment: Effe ctive: 12/21/2018 New reference range for this analyte has been established. Performed By: #### L ITH #### [facility] [address] [place] [address] Calcium mass conc 8.7 mg/dL Normal 8.5-9.9 [facility] Comment on above: Result Comment: Effe ctive: 12/21/2018 New reference range for this analyte has been established. Performed By: #### L ITH #### [facility] [address] [place] [address] Chloride molar conc 109 mmol/L Critically high 95-107 [facility] Comment on above: Result Comment: Effe ctive: 12/21/2018 New reference range for this analyte has been established. Performed By: #### L ITH #### [facility] [address] [place] [address] CO2 molar conc 24 mmol/L Normal 20-31 [facility] Comment on above: Result Comment: Effe ctive: 12/21/2018 New reference range for this analyte has been established. Performed By: #### L ITH #### [facility] [address] [place] [address] Creatinine mass conc 1.77 mg/dL Critically high 0.70-1.20 [facility] Comment on above: Performed By: #### L ITH #### [facility] [address] [place] [address] GFR/1.73 sq M predicted among blacks MDRD vol rate/area (S/P/Bld) 48.4 mL/min/{1.73_m2} Low >60 [facility] Comment on above: Result Comment: >60 mL/min/1.73m2 EGFR, calc. for ages 18 and older using the MDRD formula (not corrected for weight), is valid for stable renal function. Performed By: #### L ITH #### [facility] [address] [place] [address] GFR/1.73 sq M.predicted MDRD vol rate/area 40.0 mL/min/{1.73_m2} Low >60 [facility] Comment on above: Result Comment: >60 mL/min/1.73m2 EGFR, calc. for ages 18 and older using the MDRD formula (not corrected for weight), is valid for stable renal function. Performed By: #### L ITH #### [facility] [address] [place] [address] Glucose mass conc 95 mg/dL Normal 70-99 [facility] Comment on above: Result Comment: Effe ctive: 12/21/2018 New reference range for this analyte has been established. Performed By: #### L ITH #### [facility] [address] [place] [address] Potassium molar conc 4.8 mmol/L Normal 3.4-4.9 [facility] Comment on above: Result Comment: Effe ctive: 12/21/2018 New reference range for this analyte has been established. Performed By: #### L ITH #### [facility] [address] [place] [address] Sodium molar conc 143 mmol/L Normal 135-144 [facility] Comment on above: Result Comment: Effe ctive: 12/21/2018 New reference range for this analyte has been established. Performed By: #### L ITH #### [facility] [address] [place] [address] Urea nitrogen mass conc 25 mg/dL Critically high 6-20 [facility] Comment on above: Performed By: #### L ITH #### [facility] [address] [place] [address] Ammoniaon 03-12-2019 Ammonia mass conc (P) 20 umol/L Normal 16-60 [facility] Comment on above: Performed By: #### N H3 #### [facility] [address] [place] [address] Basic Metabolic Panelon 02-13 Anion gap molar conc 14 mmol/L Normal 9-15 [facility] Comment on above: Result Comment: Effe ctive: 12/21/2018 New reference range for this analyte has been established. Performed By: #### L ITH #### [facility] [address] [place] [address] Calcium mass conc 9.1 mg/dL Normal 8.5-9.9 [facility] Comment on above: Result Comment: Effe ctive: 12/21/2018 New reference range for this analyte has been established. Performed By: #### L ITH #### [facility] [address] [place] [address] Chloride molar conc 109 mmol/L Critically high 95-107 [facility] Comment on above: Result Comment: Effe ctive: 12/21/2018 New reference range for this analyte has been established. Performed By: #### L ITH #### [facility] [address] [place] [address] CO2 molar conc 24 mmol/L Normal 20-31 [facility] Comment on above: Result Comment: Effe ctive: 12/21/2018 New reference range for this analyte has been established. Performed By: #### L ITH #### [facility] [address] [place] [address] Creatinine mass conc 1.94 mg/dL Critically high 0.70-1.20 [facility] Comment on above: Performed By: #### L ITH #### [facility] [address] [place] [address] GFR/1.73 sq M predicted among blacks MDRD vol rate/area (S/P/Bld) 43.6 mL/min/{1.73_m2} Low >60 [facility] Comment on above: Result Comment: >60 mL/min/1.73m2 EGFR, calc. for ages 18 and older using the MDRD formula (not corrected for weight), is valid for stable renal function. Performed By: #### L ITH #### [facility] [address] [place] [address] GFR/1.73 sq M.predicted MDRD vol rate/area 36.0 mL/min/{1.73_m2} Low >60 [facility] Comment on above: Result Comment: >60 mL/min/1.73m2 EGFR, calc. for ages 18 and older using the MDRD formula (not corrected for weight), is valid for stable renal function. Performed By: #### L ITH #### [facility] [address] [place] [address] Glucose mass conc 90 mg/dL Normal 70-99 [facility] Comment on above: Result Comment: Effe ctive: 12/21/2018 New reference range for this analyte has been established. Performed By: #### L ITH #### [facility] [address] [place] [address] Potassium molar conc 4.5 mmol/L Normal 3.4-4.9 [facility] Comment on above: Result Comment: Effe ctive: 12/21/2018 New reference range for this analyte has been established. Performed By: #### L ITH #### [facility] [address] [place] [address] Sodium molar conc 147 mmol/L Critically high 135-144 [facility] Comment on above: Result Comment: Effe ctive: 12/21/2018 New reference range for this analyte has been established. Performed By: #### L ITH #### [facility] [address] [place] [address] Urea nitrogen mass conc 27 mg/dL Critically high 6-20 [facility] Comment on above: Performed By: #### L ITH #### [facility] [address] [place] [address] [place] Levelon 03-12-2019 [place] molar conc 0.8 mmol/L Normal 0.6-1.2 [facility] Comment on above: Performed By: #### L ITH #### [facility] [address] [place] [address] Valproic Acid /Depakene Leve rahul 03-12-2019 Protein mass conc 70.6 ug/mL Normal 50.0-100.0 [facility] Comment on above: Performed By: #### L ITH #### [facility] [address] [place] [address] Basic Metabolic Panelon 02-13 Anion gap molar conc 13 mmol/L Normal 9-15 [facility] Comment on above: Result Comment: Effe ctive: 12/21/2018 New reference range for this analyte has been established. Performed By: #### B MP #### [facility] [address] [place] [address] Calcium mass conc 8.9 mg/dL Normal 8.5-9.9 [facility] Comment on above: Result Comment: Effe ctive: 12/21/2018 New reference range for this analyte has been established. Performed By: #### B MP #### [facility] [address] [place] [address] Chloride molar conc 108 mmol/L Critically high 95-107 [facility] Comment on above: Result Comment: Effe ctive: 12/21/2018 New reference range for this analyte has been established. Performed By: #### B MP #### [facility] [address] [place] [address] CO2 molar conc 23 mmol/L Normal 20-31 [facility] Comment on above: Result Comment: Effe ctive: 12/21/2018 New reference range for this analyte has been established. Performed By: #### B MP #### [facility] [address] [place] [address] Creatinine mass conc 1.82 mg/dL Critically high 0.70-1.20 [facility] Comment on above: Performed By: #### B MP #### [facility] [address] [place] [address] GFR/1.73 sq M predicted among blacks MDRD vol rate/area (S/P/Bld) 46.9 mL/min/{1.73_m2} Low >60 [facility] Comment on above: Result Comment: >60 mL/min/1.73m2 EGFR, calc. for ages 18 and older using the MDRD formula (not corrected for weight), is valid for stable renal function. Performed By: #### B MP #### [facility] [address] [place] [address] GFR/1.73 sq M.predicted MDRD vol rate/area 38.8 mL/min/{1.73_m2} Low >60 [facility] Comment on above: Result Comment: >60 mL/min/1.73m2 EGFR, calc. for ages 18 and older using the MDRD formula (not corrected for weight), is valid for stable renal function. Performed By: #### B MP #### [facility] [address] [place] [address] Glucose mass conc 82 mg/dL Normal 70-99 [facility] Comment on above: Result Comment: Effe ctive: 12/21/2018 New reference range for this analyte has been established. Performed By: #### B MP #### [facility] [address] [place] [address] Potassium molar conc 4.2 mmol/L Normal 3.4-4.9 [facility] Comment on above: Result Comment: Effe ctive: 12/21/2018 New reference range for this analyte has been established. Performed By: #### B MP #### [facility] [address] [place] [address] Sodium molar conc 144 mmol/L Normal 135-144 [facility] Comment on above: Result Comment: Effe ctive: 12/21/2018 New reference range for this analyte has been established. Performed By: #### B MP #### [facility] [address] [place] [address] Urea nitrogen mass conc 28 mg/dL Critically high 6-20 [facility] Comment on above: Performed By: #### B MP #### [facility] [address] [place] [address] Lipid Panelon 03-09-2019 Cholesterol in HDL mass conc 30 mg/dL Low 40-59 [facility] Comment on above: Result Comment: ATP III HDL Cholestrol Classification is low. Expected Values: Males: >55 = No Risk 35-55 = Moderate Risk <35 = High Risk Females: >65 = No Risk 45-65 = Moderate Risk <45 = High Risk NCEP Guidelines: Third Report March 2001 >59 = negative risk factor for CHD <40 = major risk factor for CHD Performed By: #### L IPID #### [facility] [address] [place] [address] Cholesterol in LDL mass conc 83 mg/dL Normal 0-129 [facility] Comment on above: Result Comment: ATP III LDL Classification is Optimal. Performed By: #### L IPID #### [facility] [address] [place] [address] Cholesterol mass conc 160 mg/dL Normal 0-199 [facility] Comment on above: Result Comment: ATP III Cholesterol classification is Desirable. Performed By: #### L IPID #### [facility] [address] [place] [address] Triglyceride mass conc 234 mg/dL Critically high 0-150 [facility] Comment on above: Result Comment: ATP III Triglycerides Classification is High. Effective: 12/21/2018 New reference range for this analyte has been established. Performed By: #### L IPID #### [facility] [address] [place] [address] Ammoniaon 03-04-2019 Ammonia mass conc (P) 35 umol/L Normal 16-60 [facility] Comment on above: Performed By: #### N H3 #### [facility] [address] [place] [address] [place] Levelon 03-04-2019 [place] molar conc 0.7 mmol/L Normal 0.6-1.2 [facility] Comment on above: Performed By: #### L ITH #### [facility] [address] [place] [address] TSH w/out Reflexon 9 Thyrotropin Qn 2.880 uIU/mL Normal 0.440-3.86 [facility] Comment on above: Result Comment: Effe ctive: 12/21/2018 New reference range for this analyte has been established. Performed By: #### T SH #### [facility] [address] [place] [address] VITAMIN Don 03-04-2019 VITAMIN D 33.1 ng/mL Normal 30.0-100.0 [facility] Comment on above: Result Comment: (30- 100 ng/mL) Optimum Level This assay accurately quantifies the sum of vitamin D3, 25-Hydroxy and vitamin D2, 25-Hyroxy. Performed By: #### V ITD #### [facility] [address] [place] [address] Valproic Acid /Depakene Leve rahul 03-04-2019 Protein mass conc 25.8 ug/mL Low 50.0-100.0 [facility] Comment on above: Performed By: #### V ALPR #### [facility] [address] [place] [address] Vitamin B12 and Folateon Cobalamin (Vitamin B12) mass conc 340 pg/mL Normal 232-1245 [facility] Comment on above: Performed By: #### B 12FO #### [facility] [address] [place] [address] Folate 10.2 ng/mL Normal 7.3-26.1 [facility] Comment on above: Result Comment: As o f 16, the methodology has changed. Results from this methodology should not be compared with results from previous methodology. Performed By: #### B 12FO #### [facility] [address] [place] [address] Creatinineon 06-06-2018 Creatinine 1.93 mg/dL High 0.58-0.96 [facility] Comment on above: Performed By: #### C RET1, TSH, LI ####[facility] [id number] [place], [place] [phone] eGFR (non-black) 27 . Normal [facility] Comment on above: Performed By: #### C RET1, TSH, LI ####[facility] [id number] [place], [place] [phone] eGFR- Amer. 33 Normal [facility] Comment on above: Performed By: #### C RET1, TSH, LI ####[facility] [id number] [place], [place] [phone] Lithiumon 06-06-2018 [place] 0.8 mmol/L Normal 0.6-1.2 [facility] Comment on above: Performed By: #### C RET1, TSH, LI ####[facility] [address] [place], [place] [phone] TSHon 06-06-2018 Thyroid stimulating hormone (TSH) 2.350 uU/mL Normal 0.400-5.50 0 [facility] Comment on above: Performed By: #### C RET1, TSH, LI ####[facility] [id number] [place], [place] [phone] Culture, urine Bacteria identified Cx Nom (U) Culture exhibits no growth. [facility] Work Phone: Bacteria identified Cx Nom (U) Positive [facility] Work Phone: Bacteria identified Cx Nom (U) Actinomyces turicensis [facility] Work Phone: Bacteria identified Cx Nom (U) Streptococcus mitis [facility] Work Phone: Vital Signs Date Time Vital Sign Value Performing Clinician Facility 02-26-2025 11:40-0400 Diastolic blood pressure 76 mm[Hg] [facility] Work Phone: [facility] 02-26-2025 11:40-0400 Heart rate 75 /min [facility] Work Phone: [facility] 02-26-2025 11:40-0400 Respiratory rate 18 /min [facility] Work Phone: [facility] 02-26-2025 11:40-0400 SaO2% (BldA) [Mass fraction] 96 % [facility] Work Phone: [facility] 02-26-2025 11:40-0400 Systolic blood pressure 122 mm[Hg] [facility] Work Phone: [facility] 02-26-2025 09:00-0400 Body temperature 98.6 [degF] [facility] Work Phone: [facility] 02-12-2025 14:04-0400 Diastolic blood pressure 55 mm[Hg] [facility] Work Phone: [facility] 02-12-2025 14:04-0400 Heart rate 78 /min [facility] Work Phone: [facility] 02-12-2025 14:04-0400 Respiratory rate 18 /min [facility] Work Phone: [facility] 02-12-2025 14:04-0400 SaO2% (BldA) [Mass fraction] 95 % [facility] Work Phone: [facility] 02-12-2025 14:04-0400 Systolic blood pressure 128 mm[Hg] [facility] Work Phone: [facility] 02-12-2025 09:00-0400 Body temperature 98.6 [degF] [facility] Work Phone: [facility] 09-14-2024 08:49-0400 Body height 176.3 cm Dorota Smith MD Work Phone: [facility] 09-14-2024 08:49-0400 Body mass index (BMI) [Ratio] 39.27 kg/m2 Dorota Smith MD Work Phone: [facility] 09-14-2024 08:49-0400 Body temperature 97.3 [degF] Dorota Smith MD Work Phone: [facility] 09-14-2024 08:49-0400 Body weight 122.05 kg Dorota Smith MD Work Phone: [facility] 09-14-2024 08:49-0400 Diastolic blood pressure 65 mm[Hg] Dorota Smith MD Work Phone: [facility] 09-14-2024 08:49-0400 Heart rate 106 /min Dorota Smith MD Work Phone: [facility] 09-14-2024 08:49-0400 Respiratory rate 14 /min Dorota Smith MD Work Phone: [facility] 09-14-2024 08:49-0400 Systolic blood pressure 104 mm[Hg] Dorota Smith MD Work Phone: [facility] 08-09-2024 10:45-0400 Diastolic blood pressure 68 mm[Hg] [facility] Work Phone: [facility] 08-09-2024 10:45-0400 Heart rate 82 /min [facility] Work Phone: [facility] 08-09-2024 10:45-0400 Respiratory rate 18 /min [facility] Work Phone: [facility] 08-09-2024 10:45-0400 SaO2% (BldA) [Mass fraction] 96 % [facility] Work Phone: [facility] 08-09-2024 10:45-0400 Systolic blood pressure 125 mm[Hg] [facility] Work Phone: [facility] 08-09-2024 07:00-0400 Body temperature 98.4 [degF] [facility] Work Phone: [facility] 07-17-2024 11:09-0400 Body height 182.9 cm Anthony Olivares MD Work Phone: [facility] 07-17-2024 11:09-0400 Body mass index (BMI) [Ratio] 36.48 kg/m2 Anthony Olivares MD Work Phone: [facility] 07-17-2024 11:09-0400 Body weight 122 kg Anthony Olivares MD Work Phone: [facility] 07-17-2024 11:09-0400 Diastolic blood pressure 73 mm[Hg] Anthony Olivares MD Work Phone: [facility] 07-17-2024 11:09-0400 Heart rate 90 /min Anthony Olivares MD Work Phone: [facility] 07-17-2024 11:09-0400 Systolic blood pressure 106 mm[Hg] Anthony Olivares MD Work Phone: [facility] 01-26-2024 12:00-0400 Diastolic blood pressure 62 mm[Hg] [facility] Work Phone: [facility] 01-26-2024 12:00-0400 Heart rate 97 /min [facility] Work Phone: [facility] 01-26-2024 12:00-0400 Respiratory rate 18 /min [facility] Work Phone: [facility] 01-26-2024 12:00-0400 SaO2% (BldA) [Mass fraction] 96 % [facility] Work Phone: [facility] 01-26-2024 12:00-0400 Systolic blood pressure 110 mm[Hg] [facility] Work Phone: [facility] 01-26-2024 07:05-0400 Body temperature 98.6 [degF] [facility] Work Phone: [facility] 12-20-2023 09:51-0500 Body height 177.8 cm Anthony Olivares MD Work Phone: [facility] 12-20-2023 09:51-0500 Body temperature 97.7 [degF] Anthony Olivares MD Work Phone: [facility] 12-20-2023 09:51-0500 Body weight 126.4 kg Anthony Olivares MD Work Phone: [facility] 12-20-2023 09:51-0500 Diastolic blood pressure 68 mm[Hg] Anthony Olivares MD Work Phone: [facility] 12-20-2023 09:51-0500 Heart rate 116 /min Anthony Olivares MD Work Phone: [facility] 12-20-2023 09:51-0500 Systolic blood pressure 97 mm[Hg] Anthony Olivares MD Work Phone: [facility] 02-25-2023 11:04-0400 Body height 171.5 cm Luz Daniel MD Work Phone: [facility] 02-25-2023 11:04-0400 Body temperature 97.9 [degF] Luz Daniel MD Work Phone: [facility] 02-25-2023 11:04-0400 Body weight 146.69 kg Luz Daniel MD Work Phone: [facility] 02-25-2023 11:04-0400 Diastolic blood pressure 86 mm[Hg] Luz Daniel MD Work Phone: [facility] 02-25-2023 11:04-0400 Heart rate 93 /min Luz Daniel MD Work Phone: [facility] 02-25-2023 11:04-0400 Systolic blood pressure 125 mm[Hg] Luz Daniel MD Work Phone: [facility] 11-03-2022 13:05-0500 Body temperature 97.2 [degF] Ashleigh 2 Work Phone: [facility] 11-03-2022 13:05-0500 Diastolic blood pressure 78 mm[Hg] Ashleigh 2 Work Phone: [facility] 11-03-2022 13:05-0500 Heart rate 89 /min Douglaski 2 Work Phone: [facility] 11-03-2022 13:05-0500 Respiratory rate 18 /min Dougl[place]i 2 Work Phone: [facility] 11-03-2022 13:05-0500 SaO2% (BldA) [Mass fraction] 95 % Dougl[place]i 2 Work Phone: [facility] 11-03-2022 13:05-0500 Systolic blood pressure 124 mm[Hg] Dougl[place]i 2 Work Phone: [facility] 11-03-2022 07:52-0500 Body weight 144.74 kg Ashleigh 2 Work Phone: [facility] 08-27-2022 10:46-0400 Body height 171.5 cm Luz Daniel MD Work Phone: [facility] 08-27-2022 10:46-0400 Body temperature 98.29 [degF] Luz Daniel MD Work Phone: [facility] 08-27-2022 10:46-0400 Body weight 146.06 kg Luz Daniel MD Work Phone: [facility] 08-27-2022 10:46-0400 Diastolic blood pressure 95 mm[Hg] Luz Daniel MD Work Phone: [facility] 08-27-2022 10:46-0400 Heart rate 109 /min Luz Daniel MD Work Phone: [facility] 08-27-2022 10:46-0400 Systolic blood pressure 132 mm[Hg] Luz Daniel MD Work Phone: [facility] 07-27-2022 15:53-0400 Body height 176.5 cm Anthony Olivares MD Work Phone: [facility] 07-27-2022 15:53-0400 Body weight 142.88 kg Anthony Olivares MD Work Phone: [facility] 07-27-2022 15:53-0400 Diastolic blood pressure 85 mm[Hg] Anthony Olivares MD Work Phone: [facility] 07-27-2022 15:53-0400 Heart rate 94 /min Anthony Olivares MD Work Phone: [facility] 07-27-2022 15:53-0400 Systolic blood pressure 128 mm[Hg] Anthony Olivares MD Work Phone: [facility] 05-05-2022 13:15-0400 Body temperature 97.2 [degF] Kidney 1 [facility] 05-05-2022 13:15-0400 Diastolic blood pressure 91 mm[Hg] Kidney 1 [facility] 05-05-2022 13:15-0400 Heart rate 116 /min Kidney 1 [facility] 05-05-2022 13:15-0400 Systolic blood pressure 157 mm[Hg] Kidney 1 [facility] 05-05-2022 07:40-0400 SaO2% (BldA) [Mass fraction] 95 % Kidney 1 [facility] 05-05-2022 07:36-0400 Body weight 140.57 kg Kidney 1 [facility] 11-04-2020 15:52-0500 Body Temperature 97.2 [degF] [place] 11-04-2020 15:52-0500 BP Diastolic 74 mm[Hg] [place], [place] 11-04-2020 15:52-0500 BP Systolic 113 mm[Hg] [place], [place] 11-04-2020 15:52-0500 Pulse (Heart Rate) 92 /min [place], [place] 11-04-2020 15:52-0500 Pulse Oximetry 96 % [place], [place] 11-04-2020 15:52-0500 Respiratory Rate 17 /min [place], [place] 11-04-2020 05:31-0500 Body weight 114.31 kg [place], [place] Encounters Encounter Date Encounter Type Care Provider Facility Start: 04-01-2025 ambulatory Adam CHANDLER Fac ility:[facility] Start: 03-27-2025 ambulatory Alfredo Krishnani lity:[facility] Start: 03-27-2025 Registered Referred Alfredo Phipps - [facility] Start: 03-04-2025 End: 03-04-[address] Elgin Bal MD Work Phone: [facility] Work Phone: Start: 03-04-2025 End: 03-04-2025 Departed Referred Adam Ferraro -[facility] [employer] Start: 03-04-2025 Registered Referred Adam Ferraro -[facility] [employer] Start: 03-04-2025 End: 03-04-2025 ambulatory Adam CHANDLER Facility:[facility] Start: 02-27-2025 End: 02-27-[address] Elgin Bal MD Work Phone: [facility] Work Phone: Start: 02-27-2025 End: 02-27-2025 Departed Referred Alfredo [facility] Start: 02-27-2025 Registered Referred Alfredo [facility] Start: 02-26-2025 End: 02-27-2025 ambulatory ANTHONY OLIVARES Facility:[facility] Start: 02-26-2025 End: 02-26-2025 Subsequent hospital visit by physician Chair [facility] Work Phone: [facility] Start: 02-25-2025 End: 02-25-[address] Elgin Bal MD Work Phone: [facility] Work Phone: Start: 02-25-2025 End: 02-25-2025 Departed Referred Adam [facility]le [facility] Start: 02-25-2025 Registered Referred Adam Ferraro [facility] [employer] Start: 02-25-2025 End: 02-25-2025 ambulatory Adam CHANDLER Facility:[facility] Start: 02-12-2025 ambulatory ANTHONY OLIVARES Facility: [facility] Start: 02-12-2025 End: 02-12-2025 Subsequent hospital visit by physician Chair [facility] Work Phone: [facility] Start: 02-11-2025 End: 02-11-[address] Elgin Bal MD Work Phone: [facility] Work Phone: Start: 02-11-2025 End: 02-11-2025 Departed Referred Alfredo OSORIO Start: 02-11-2025 Registered Referred Alfredo Phipps - [facility] [employer] Start: 02-11-2025 End: 02-11-2025 ambulatory Elgin Bla Facility:[facility] Start: 02-06-2025 End: 02-06-[address] Elgin Bal MD Work Phone: [facility] Work Phone: Start: 02-06-2025 End: 02-06-2025 Departed Referred Alfredo Robert[facility] Start: 02-06-2025 Registered Referred Peter Katsaros - [facility] [employer] Start: 02-06-2025 End: 02-06-2025 ambulatory Elgin Mally Facility:[facility] Start: 01-30-2025 End: 01-30-2025 Departed Referred Adam Ferraro [facility] [employer] Start: 01-30-2025 End: 01-30-2025 Orders Only Anthony Olivares MD Work Phone: [facility] Start: 01-30-2025 Registered Referred Adam Ferraro [facility] [employer] Start: 01-30-2025 End: 01-30-2025 ambulatory Adam CHANDLER Facility:[facility] Start: 01-25-2025 End: 01-25-[address] Elgin Bal MD Work Phone: [facility] Work Phone: Start: 01-25-2025 End: 01-25-2025 Departed Referred Adam Ferraro [facility] [employer] Start: 01-25-2025 End: 01-25-2025 ambulatory Adam Jasmine CHANDLER Facility:[facility] Start: 01-03-2025 End: 01-03-[address] Elgin Bal MD Work Phone: [facility] Work Phone: Start: 01-03-2025 End: 01-03-2025 Departed Referred Adam Ferraro [facility] [employer] Start: 01-03-2025 Registered Referred Adam Ferraro [facility] Start: 01-02-2025 End: 01-03-[address] Elgin Bal MD Work Phone: [facility] Work Phone: Start: 01-02-2025 End: 01-02-2025 Departed Referred Adam Ferraro [facility] Start: 01-02-2025 Registered Referred Adam Jasmine [facility] [employer] Start: 01-02-2025 End: 01-02-2025 ambulatory Elgin [place] Facility:[facility] Start: 12-28-2024 End: 12-28-[address] Elgin Bal MD Work Phone: [facility] Work Phone: Start: 12-28-2024 End: 12-28-2024 Departed Referred Adam Ferraro [facility] Start: 12-28-2024 End: 12-28-2024 ambulatory Adam Jasmine CHANDLER Facility:[facility] Start: 11-27-2024 End: 11-27-2024 Departed Referred Adam Jasmine [facility] [employer] Start: 11-27-2024 End: 11-27-2024 ambulatory Adam Wandamele RAMESH Facility:[facility] Start: 11-20-2024 End: 11-23-2024 ambulatory Anthony Olivares MD Work Phone: [facility] Start: 11-15-2024 End: 11-15-2024 Departed Referred Adam Jasmine [facility] [employer] Start: 11-15-2024 End: 11-15-2024 ambulatory Elgin Bal Facility:[facility] Start: 09-27-2024 End: 09-27-2024 Departed Referred Adam Ferraro [facility] [employer] Start: 09-27-2024 End: 09-27-2024 ambulatory Adam Ferraro RAMESH Facility:[facility] Start: 09-14-2024 End: 09-14-2024 Patient encounter procedure Dorota Smith MD Work Phone: [facility] Comment on above: 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); Rash and nonspecific skin eruption; 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) Start: 09-14-2024 End: 09-14-2024 ambulatory ALFREDO PHIPPS Facility:[facility] Start: 09-12-2024 End: 09-12-2024 ambulatory Adam CHANDLER Facility:[facility] Start: 08-27-2024 End: 08-27-2024 ambulatory Adam CHANDLER Facility:[facility] Start: 08-10-2024 ambulatory Alfredo CHANDLER Faci lity:[facility] Start: 08-09-2024 ambulatory ANTHONY OLIVARES Facility: [facility] Start: 08-09-2024 End: 08-09-2024 Subsequent hospital visit by physician Chair [facility] Work Phone: [facility]fusion [facility] Comment on above: Rituximab Start: 07-31-2024 End: 07-31-2024 ambulatory Adam CHANDLER Facility:[facility] Start: 07-17-2024 End: 07-17-2024 Patient encounter procedure Anthony Olivares MD Work Phone: [facility] Comment on above: 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); Stage 3b chronic kidney disease (HCC); Benign hypertension with chronic kidney disease Start: 07-17-2024 End: 07-20-2024 ambulatory Anthony Olivares MD Work Phone: [facility] Start: 06-29-2024 End: 06-29-2024 ambulatory Adam CHANDLER Facility:[facility] Start: 06-27-2024 End: 06-27-2024 ambulatory Alfredo CHANDLER Facility:[facility] Start: 06-22-2024 End: 06-22-2024 ambulatory Adam CHANDLER Facility:[facility] Start: 06-08-2024 End: 06-08-2024 ambulatory Adam CHANDLER Facility:[facility] Start: 05-28-2024 End: 05-28-2024 ambulatory Adam Ferraro OLS Facility:[facility] Start: 05-25-2024 End: 05-25-2024 ambulatory Adam CHANDLER Facility:[facility] Start: 05-21-2024 Telephone encounter Dorota hameed MD Work Phone: [facility] Comment on above: No Show Start: 04-27-2024 ambulatory Alfredo CHANDLER Faci lity:[facility] Start: 03-19-2024 Telephone encounter Ronny Coreas MD Work Phone: [facility] Start: 03-19-2024 End: 03-19-2024 ambulatory RONNY COREAS Facility:[facility] Start: 03-19-2024 End: 03-19-2024 Office outpatient visit 15 minutes Ronny Coreas MD Work Phone: [facility] Comment on above: Vasculitis (HCC) (Pr imary Dx); Stage 3b chronic kidney disease (HCC); 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); Benign hypertension with chronic kidney disease Start: 02-03-2024 End: 02-03-2024 ambulatory [facility] Work Phone: Start: 02-03-2024 End: 02-03-2024 Departed Referred [facility] [employer] Start: 01-26-2024 End: 01-26-2024 Subsequent hospital visit by physician Chair [facility] Work Phone: Infusion Center Comment on above: Rituximab Start: 01-06-2024 End: 01-06-2024 ambulatory [facility] Work Phone: Start: 01-06-2024 End: 01-06-2024 Departed Referred [facility] [employer] Start: 12-29-2023 Orders Only Babak Drummond RN [facility] Start: 12-27-2023 Orders Only Anthony Olivares MD Work Phone: [facility]ney [facility] Start: 12-23-2023 Telephone encounter Nruia noyola RN Kidney Medicine Comment on above: Appointment Start: 12-20-2023 End: 12-20-2023 ambulatory Anthony Olivares MD Work Phone: [facility] Start: 12-20-2023 End: 12-20-2023 Patient encounter procedure Anthony Olivares MD Work Phone: [facility] Comment on above: 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); Stage 3b chronic kidney disease (HCC); Benign hypertension with chronic kidney disease Start: 12-09-2023 End: 12-09-2023 ambulatory [facility] Work Phone: Start: 12-09-2023 End: 12-09-2023 Departed Referred [facility] [employer] Start: 11-16-2023 End: 11-16-2023 Departed Referred [facility] [employer] Start: 11-16-2023 [facility] Start: 11-11-2023 End: 11-11-2023 ambulatory [facility] Work Phone: Start: 11-11-2023 End: 11-11-2023 [facility] Start: 11-11-2023 Registered [facility] Start: 10-27-2023 End: 10-27-2023 ambulatory [facility] Work Phone: Start: 10-27-2023 End: 10-27-2023 [facility] Start: 10-14-2023 End: 10-14-2023 ambulatory [facility] Work Phone: Start: 10-14-2023 End: 10-14-2023 [facility] Start: 09-27-2023 End: 09-27-2023 ambulatory [facility] Work Phone: Start: 09-27-2023 End: 09-27-2023 [facility] Start: 09-27-2023 Registered [facility] Start: 09-16-2023 End: 09-16-2023 ambulatory [facility] Work Phone: Start: 09-16-2023 End: 09-16-2023 [facility] Start: 08-29-2023 Telephone encounter Dorota hameed MD Work Phone: [facility] Comment on above: Patient Update Start: 08-26-2023 Telephone encounter Luz Daniel MD Work Phone: [facility] Comment on above: NO SHOW Start: 08-19-2023 End: 08-19-2023 ambulatory [facility] Work Phone: Start: 08-19-2023 End: 08-19-2023 Departed Referred [facility] [employer] [facility] Start: 07-28-2023 End: 07-28-2023 Departed Referred [facility] [employer] [facility] Start: 07-28-2023 Registered Referred [facility] Start: 07-24-2023 [facility] Start: 07-22-2023 End: 07-22-2023 ambulatory [facility] Work Phone: Start: 07-22-2023 End: 07-22-2023 [facility] Start: 06-24-2023 End: 06-24-2023 ambulatory [facility] Work Phone: Start: 06-24-2023 End: 06-24-2023 [facility] Start: 06-24-2023 Registered Referred [facility] Start: 05-30-2023 End: 05-30-2023 ambulatory [facility] Work Phone: Start: 05-30-2023 End: 05-30-2023 [facility] Start: 05-30-2023 Registered Referred [facility] Start: 05-27-2023 End: 05-27-2023 ambulatory [facility] Work Phone: Start: 05-27-2023 End: 05-27-2023 [facility] Start: 05-27-2023 Registered [facility]erred [facility] Start: 05-19-2023 End: 05-19-2023 ambulatory [facility] Work Phone: Start: 05-19-2023 End: 05-19-2023 Departed [facility] Start: 05-19-2023 Registered Referred [facility] Start: 04-29-2023 End: 04-29-2023 ambulatory [facility] Work Phone: Start: 04-29-2023 End: 04-29-2023 Departed Referred [facility] Start: 04-29-2023 Registered Referred [facility] Start: 04-27-2023 End: 04-27-2023 ambulatory [facility] Work Phone: Start: 04-27-2023 End: 04-27-2023 Departed Referred [facility] Start: 04-04-2023 End: 04-04-2023 Departed Referred [facility] Start: 04-01-2023 End: 04-01-2023 Departed Referred [facility] Start: 03-04-2023 End: 03-04-2023 ambulatory [facility] Work Phone: Start: 03-04-2023 End: 03-04-2023 Departed Referred [facility] Start: 02-25-2023 End: 02-25-2023 Patient encounter procedure Luz Daniel MD Work Phone: [facility] [place] Comment on above: Rheumatoid arthritis involving both hands 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 rheumatoid factor (HCC) (Primary Dx); 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) Start: 02-25-2023 End: 02-25-2023 ambulatory [facility] Work Phone: Start: 02-25-2023 End: 02-25-2023 Departed Referred [facility] [employer] Start: 02-04-2023 End: 02-04-2023 ambulatory [facility] Work Phone: Start: 02-04-2023 End: 02-04-2023 Departed Referred [facility] Start: 02-04-2023 [facility] Start: 01-25-2023 End: 01-25-2023 ambulatory [facility] Work Phone: Start: 01-25-2023 End: 01-25-2023 [facility] Start: 01-25-2023 [facility] Start: 01-19-2023 End: 01-19-2023 [facility] Start: 01-19-2023 [facility] Start: 01-07-2023 End: 01-07-2023 ambulatory [facility] Work Phone: Start: 01-07-2023 End: 01-07-2023 [facility] Start: 01-07-2023 [facility] Start: 12-28-2022 End: 12-28-2022 ambulatory [facility] Work Phone: Start: 12-28-2022 End: 12-28-2022 [facility] Start: 12-28-2022 [facility] Start: 12-15-2022 End: 12-15-2022 [facility] Start: 12-15-2022 [facility] Start: 12-10-2022 End: 12-10-2022 ambulatory [facility] Work Phone: Start: 12-10-2022 End: 12-10-2022 [facility] Start: 11-17-2022 End: 11-17-2022 ambulatory [facility] Work Phone: Start: 11-17-2022 End: 11-17-2022 [facility] Start: 11-17-2022 [facility] Start: 11-12-2022 End: 11-12-2022 [facility] Start: 11-12-2022 [facility] Start: 11-03-2022 End: 11-03-2022 Patient encounter procedure Kidney Med Main Infusion Chair 1 Kidney Medicine Comment on above: 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) Start: 11-02-2022 Orders Only Adam Tee MD Work Phone: Kid[facility] Medicine Main [place] Comment on above: 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) Start: 10-27-2022 End: 10-27-2022 ambulatory [facility] Work Phone: Start: 10-27-2022 End: 10-27-2022 [facility] Start: 10-27-2022 [facility] Start: 10-15-2022 End: 10-15-2022 [facility] Start: 10-15-2022 [facility] Start: 09-27-2022 End: 09-27-2022 ambulatory [facility] Work Phone: Start: 09-27-2022 End: 09-27-2022 [facility] Start: 09-27-2022 [facility] Start: 09-17-2022 End: 09-17-2022 ambulatory [facility] Work Phone: Start: 09-17-2022 End: 09-17-2022 [facility] Start: 09-17-2022 [facility] Start: 08-27-2022 End: 08-27-2022 Patient encounter procedure Luz Daniel MD Work Phone: [facility] [place] Comment on above: Rheumatoid arthritis involving both hands 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 rheumatoid factor (HCC) (Primary Dx) Start: 08-27-2022 End: 08-27-2022 Departed Referred [facility] Start: 08-27-2022 Registered Referred [facility] Start: 08-23-2022 End: 08-23-2022 ambulatory [facility] Work Phone: Start: 08-23-2022 End: 08-23-2022 Departed Referred [facility] Start: 08-23-2022 Registered Referred [facility] Start: 08-12-2022 End: 08-12-2022 ambulatory [facility] Work Phone: Start: 08-12-2022 End: 08-12-2022 Departed Referred [facility] Start: 07-28-2022 End: 07-28-2022 ambulatory [facility] Work Phone: Start: 07-28-2022 End: 07-28-2022 Departed Referred [facility] Start: 07-28-2022 [facility] Start: 07-27-2022 End: 07-27-2022 Patient encounter procedure Anthony Olivares MD Work Phone: Kidney [facility] Comment on above: 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); Stage 3a chronic kidney disease (HCC) Start: 07-27-2022 ambulatory Anthony Olivares MD Work Phone: Kidney [facility] Start: 07-15-2022 End: 07-15-2022 ambulatory [facility] Work Phone: Start: 07-15-2022 End: 07-15-2022 Departed Referred [facility] Start: 07-15-2022 Registered Referred [facility] Start: 06-28-2022 End: 06-28-2022 ambulatory [facility] Work Phone: Start: 06-28-2022 End: 06-28-2022 Departed Referred [facility] Start: 06-28-2022 [facility] Start: 06-17-2022 End: 06-17-2022 ambulatory [facility] Work Phone: Start: 06-17-2022 End: 06-17-2022 Departed Referred [facility] Start: 05-27-2022 End: 05-27-2022 Departed Referred [facility] Start: 05-20-2022 End: 05-20-2022 Departed Referred [facility] Start: 05-05-2022 Patient encounter procedure Anthony Olivares MD Work Phone: [facility] Medicine Main [place] Comment on above: 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); Stage 3b chronic kidney disease (HCC); Benign hypertension with chronic kidney disease Start: 05-05-2022 End: 05-05-2022 Subsequent hospital visit by physician Gus Tyson J1-4 Work Phone: Radiology Comment on above: Rheumatoid arthritis involving both hands 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 rheumatoid factor (HCC) [M06.041, M06.042] Start: 05-05-2022 End: 05-05-2022 Nursing evaluation of patient and report [facility] Main Infusion Chair 1 Kidney Medicine Comment on above: 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); Vasculitis (HCC) Start: 04-27-2022 End: 04-27-2022 Departed Referred [facility] Start: 04-27-2022 Registered Referred [facility] Start: 04-22-2022 End: 04-22-2022 [facility] Start: 04-22-2022 [facility] Start: 04-21-2022 End: 04-21-2022 [facility] Start: 04-21-2022 [facility] Start: 04-06-2022 End: 04-06-2022 [facility] Start: 04-06-2022 [facility] Start: 04-05-2022 End: 04-05-2022 [facility] Start: 04-05-2022 [facility] Start: 04-02-2022 End: 04-02-2022 [facility] Start: 04-02-2022 [facility] Start: 03-30-2022 Orders Only Anthony Olivares MD Work Phone: Kidney Medicine Main [place] Comment on above: Granulomatosis with polyangiitis, unspecified whether renal involvement (HCC) (Primary Dx) Start: 03-25-2022 End: 03-25-2022 [facility] Start: 03-25-2022 [facility] Start: 03-19-2022 End: 03-19-2022 [facility] Start: 03-19-2022 [facility] Start: 02-25-2022 End: 02-25-2022 [facility] Start: 02-25-2022 [facility] Start: 02-18-2022 End: 02-18-2022 Departed Referred [facility] Start: 01-28-2022 End: 01-28-2022 Departed Referred [facility] Start: 01-28-2022 Registered Referred [facility] Start: 01-25-2022 End: 01-25-2022 Departed Referred [facility] Start: 01-25-2022 Registered Referred [facility] Start: 01-04-2022 End: 01-04-2022 Departed Referred [facility] Start: 01-04-2022 Registered Referred [facility] Start: 12-07-2021 End: 12-07-2021 Departed Referred [facility] Start: 12-03-2021 Registered Referred [facility] Start: 11-09-2021 Registered Referred [facility] Start: 11-05-2021 Registered Referred [facility] Start: 10-28-2020 End: 11-04-2020 Evaluation and management of inpatient [place]f Long Work Phone: [facility] Comment on above: Pneumonia due to COV ID-19 virus (Primary Dx); Hypoxia; Hypokalemia; Stage 3 chronic kidney disease, unspecified whether stage 3a or 3b CKD Start: 11-14-2019 Encounter for genera l adult medical examination without abnormal findings [facility] Start: 11-14-2019 End: 08-05-2020 Patient encounter procedure HODA BROWNING [facility] Start: 08-06-2019 End: 08-06-2019 Patient encounter procedure HODA BROWNING [facility] Start: 10-21-2009 End: 01-29-2013 Patient encounter status Ronny Coreas MD Work Phone: [facility] Encounter for genera l adult medical examination without abnormal findings [facility] Procedures Date Procedure Procedure Detail Performing Clinician Start: 02-27-[address] [place] [address] Elgin Bal MD Work Phone: Start: 01-30-[address] [place] [address] Elgin Bal MD Work Phone: Start: 01-03-[address] Elgin Bal MD Work Phone: Start: 01-03-2025 Urine microalbumin/creatinine ratio measurement Dr. Elgin Bal MD Work Phone: Comment on above: Test not performed Start: 01-02-2025 Assay of phosphorus inorganic Dr. Elgin Bal MD Work Phone: Start: 01-02-[address] [place] [address] Elgin Bal MD Work Phone: Start: 01-02-2025 Measurement of renal function Dr. Elgin Bal MD Work Phone: Comment on above: GFR Calc Start: 12-28-2024 Measurement of renal function Dr. Elgin Bal MD Work Phone: Comment on above: GFR Calc Start: 07-17-2024 Urnls dip stick/tabl et rgnt auto w/o microscopy Bulk Order Provider Start: 12-20-2023 Creatinine other source Anthony Olivares MD Work Phone: Start: 12-20-2023 Urnls dip stick/tabl et rgnt auto w/o microscopy Bulk Order Provider Start: 12-20-2023 Lipid 1996 panel - S ellen or Plasma Anthony Olivares MD Work Phone: Start: 07-27-2022 Urnls dip stick/tabl et rgnt auto w/o microscopy Bulk Order Provider Start: 05-05-2022 Radex foot complete minimum 3 views Luz Daniel MD Work Phone: Start: 04-22-2022 Urine culture Start: 02-25-2022 Urine culture Start: 12-03-2021 Urine culture Start: 11-05-2021 Urine culture Start: 11-04-2020 HOME O2 EVAL (DESATU RATION SCREEN) Imola K Osapay Work Phone: Start: 11-04-2020 Blood count complete auto&auto difrntl wbc Imola K Osapay Work Phone: Start: 11-04-2020 Blood count complete auto&auto difrntl wbc Imola K Osapay Work Phone: Start: 11-04-2020 MANUAL DIFFERENTIAL Imo la K Patrickpay Work Phone: Start: 11-03-2020 Radiologic exam ches t 2 views Imola K Osapay Work Phone: Start: 11-03-2020 ADD ON LAB TEST Imola K Osapay Work Phone: Start: 11-03-2020 Blood count complete auto&auto difrntl wbc Imola K Osapay Work Phone: Start: 11-03-2020 MANUAL DIFFERENTIAL Imo la K [employer] Work Phone: Start: 11-03-2020 Procalcitonin (pct) Imo la K [employer] Work Phone: Start: 11-02-2020 Assay of ferritin Imola K Osapay Work Phone: Start: 11-02-2020 Blood count complete auto&auto difrntl wbc Imola K [employer] Work Phone: Start: 11-02-2020 Blood count complete automated Imola K Osapay Work Phone: Start: 11-02-2020 C-reactive protein Imol a K [employer] Work Phone: Start: 11-02-2020 Fibrin dgradj produc ts d-dimer quantitative Imola K Osapay Work Phone: Start: 11-02-2020 Fibrinogen activity Imo la K [employer] Work Phone: Start: 11-02-2020 Lactate dehydrogenase ldh Imola K Osapay Work Phone: Start: 11-02-2020 Thromboplastin time partial plasma/whole blood Imola K Osapay Work Phone: Start: 11-01-2020 Assay of ferritin Imola K Osapay Work Phone: Start: 11-01-2020 Blood count complete auto&auto difrntl wbc Imola K Osapay Work Phone: Start: 11-01-2020 C-reactive protein Imol a K Os[place] Work Phone: Start: 11-01-2020 Fibrin dgradj produc ts d-dimer quantitative Imola K Osapay Work Phone: Start: 11-01-2020 Fibrinogen activity Imo la K [place] Work Phone: Start: 11-01-2020 Lactate dehydrogenase ldh Imola K Osapay Work Phone: Start: 10-31-2020 Ecg routine ecg w/le ast 12 lds w/i&r Imola K Osapay Work Phone: Start: 10-31-2020 Assay of ferritin Imola K Osapay Work Phone: Start: 10-31-2020 Blood count complete auto&auto difrntl wbc Imola K Osapay Work Phone: Start: 10-31-2020 Blood count complete automated Imola K Osapay Work Phone: Start: 10-31-2020 C-reactive protein Imol a K Osapay Work Phone: Start: 10-31-2020 Fibrin dgradj produc ts d-dimer quantitative Imola K Osapay Work Phone: Start: 10-31-2020 Fibrinogen activity Imo la K Os[place] Work Phone: Start: 10-31-2020 Lactate dehydrogenase ldh Imola K Osapay Work Phone: Start: 10-30-2020 Assay of ferritin Imola K Osapay Work Phone: Start: 10-30-2020 Blood count complete auto&auto difrntl wbc Imola K Osapay Work Phone: Start: 10-30-2020 C-reactive protein Imol a K Os[place] Work Phone: Start: 10-30-2020 Fibrin dgradj produc ts d-dimer quantitative Imola K Osapay Work Phone: Start: 10-30-2020 Fibrinogen activity Imo la K Os[place] Work Phone: Start: 10-30-2020 Lactate dehydrogenase ldh Imola K Osapay Work Phone: Start: 10-30-2020 Thromboplastin time partial plasma/whole blood Imola K Osapay Work Phone: Start: 10-29-2020 Ct angiography chest w/contrast/noncontrast Imola K Osapay Work Phone: Start: 10-29-2020 Blood count complete auto&auto difrntl wbc Imola K Osapay Work Phone: Start: 10-29-2020 Blood count complete automated Imola K Osapay Work Phone: Start: 10-29-2020 Drug screen quantita tive lithium Imola K Osapay Work Phone: Start: 10-29-2020 Fibrin dgradj produc ts d-dimer quantitative Imola K Osapay Work Phone: Start: 10-29-2020 Fibrinogen activity Imo la K Os[place] Work Phone: Start: 10-29-2020 Thromboplastin time partial plasma/whole blood Imola K Osapay Work Phone: Start: 10-29-2020 25 hydroxy includes fractions if performed Imola K Osapay Work Phone: Start: 10-29-2020 Assay of ferritin Imola K Osapay Work Phone: Start: 10-29-2020 Blood count complete auto&auto difrntl wbc Imola K Osapay Work Phone: Start: 10-29-2020 C-reactive protein Imol a Jeremy Diaz Work Phone: Start: 10-29-2020 Fibrin dgradj produc ts d-dimer quantitative Farrukh Diaz Work Phone: Start: 10-29-2020 Fibrinogen activity Imo la Jeremy Diaz Work Phone: Start: 10-29-2020 Lactate dehydrogenase ldh Farrukh Diaz Work Phone: Start: 10-29-2020 Procalcitonin (pct) Imo la Jeremy Diaz Work Phone: Start: 10-28-2020 Urnls dip stick/tabl et rgnt auto w/o microscopy Andrew Silver Work Phone: Start: 10-28-2020 POCT ARTERIAL Otf Terra schrader Work Phone: Start: 10-28-2020 Assay of lactate Andrew Silver Work Phone: Start: 10-28-2020 Assay of troponin quantitative Andrew Silver Work Phone: Start: 10-28-2020 Blood count complete auto&auto difrntl wbc Andrew Silver Work Phone: Start: 10-28-2020 Comprehensive metabo lic panel Andrew Mariscalner Work Phone: Start: 10-28-2020 Natriuretic peptide Bruce anastaciol Adrianne Work Phone: Start: 10-28-2020 Ecg routine ecg w/le ast 12 lds w/i&r Andrew Mariscalner Work Phone: Start: 10-28-2020 Radiologic exam ches t single view Andrew Mariscalner Work Phone: Start: 10-28-2020 RESPIRATORY PANEL, MOLECULAR, WITH COVID-19 Farrukh Diaz Work Phone: Start: 05-05-2020 Urinalysis HODA WYATT Comment on above: Result Comment: URIN ALYSIS Performed By: #### [id number] #### [facility],[address] [place] [address] Start: 04-08-2020 Urinalysis HODA WYATT Comment on above: Result Comment: URIN ALYSIS Performed By: #### [id number] #### [place] [address] Start: 02-04-2020 Urinalysis HODA WYATT Comment on above: Result Comment: URIN ALYSIS Performed By: #### [id number] #### [facility],[address] [place] [address] Start: 01-07-2020 Urinalysis HODA WYATT Comment on above: Result Comment: URIN ALYSIS Performed By: #### [id number] #### [place] [address] Start: 12-10-2019 Urinalysis HODA WYATT Comment on above: Result Comment: URIN ALYSIS Performed By: #### 2 [id number] #### [place] [address] Start: 11-05-2019 Urinalysis HODA WYATT Comment on above: Result Comment: URIN ALYSIS Performed By: #### [id number] #### [place] [address] Start: 10-08-2019 Urinalysis HODA WYATT Comment on above: Result Comment: URIN ALYSIS Performed By: #### [id number] #### [facility],[address] [place] [address] Start: 09-10-2019 Urinalysis HODA EASLEY ISELIJAH Comment on above: Result Comment: URIN ALYSIS Performed By: #### 2 [id number] #### [place] [address] Start: 08-10-2019 Adult depression scr eening salo Olivares MD Work Phone: Start: 08-06-2019 Urinalysis HODA WYATT Comment on above: Result Comment: URIN ALYSIS Performed By: #### [id number] #### [facility],[address] [place] [id number] Start: 07-23-2019 Colonoscopy Anthony rosa MD Work Phone: Start: 08-09-2018 Lipid 1996 panel - S ellen or Plasma Luz Daniel MD Work Phone: Urine culture Urine culture Plan of Treatment Date Care Activity Detail Author Start: 12-20-2028 Lipid panel Lipid Screening [facility] Start: 12-20-2026 Diabetes Screening Diabetes Screenin g [facility] Start: 09-16-2025 End: 09-16-2025 Patient encounter procedure 09/16/2025 9:00 AM EST Office Visit [facility] General Rheumatology and Arthritis [address] [place], [place] [id number] Dorota Smith MD [address] [place], [place] [id number] 6 months in office PA [facility] [employer] General Rheumatology and Arthritis Comment on above: 6 months in office P A Start: 09-14-2025 BP Controlled (<130/80) BP Controlle d (<130/80) [facility] Start: 07-17-2025 BP Controlled (<130/80) BP Controlle d (<130/80) [facility] Start: 05-23-2025 End: 05-23-2025 Patient encounter procedure 05/23/2025 4:00 PM EDT Office Visit [facility] [address] [address] Anthony Olivares MD [address] [place] [address] Virtual f/u per Dr Olivares.I spoke with Nursing Facility where patient is at [facility] Comment on above: Virtual f/u per Dr Leonie herrera.I spoke with Nursing Facility where patient is at Start: 03-20-2025 End: 03-20-2025 Patient encounter procedure 03/20/2025 9:00 AM EDT Office Visit [facility] [employer] General Rheumatology and Arthritis [address] [place], [place] [address] Leeann Lopez, PAMichelleC [address] [place], [place] [id number] 6 months in office PA [facility] General Rheumatology and Arthritis Comment on above: 6 months in office P A Start: 02-26-2025 End: 02-26-2025 Patient encounter procedure 02/26/2025 9:00 AM EDT Appointment Infusion Center [address] [place] [id number] [address] Ignacio Jack, granulomatosis, () Infusion Center Comment on above: Dr Ignacio Jack, granulomatosis, () Start: 02-20-2025 Covid-19 Vaccine (9 - Pfizer risk ) Covid-19 Vaccine (9 - Pfizer risk ) [facility] Start: 12-20-2024 BP Controlled (<130/80) BP Controlle d (<130/80) [facility] Start: 12-20-2024 Complete blood count Hemoglobin/Timo tocrit [facility] Start: 12-20-2024 Creatinine measurement Serum Creatin ine [facility] Start: 11-20-2024 End: 11-20-2024 Patient encounter procedure 11/20/2024 11:00 AM EST Office Visit Kidney Medicine [facility] [address] [place] [id number] Anthony Olivares MD [address] [place] [address] follow up in October per Dr Olivares Kidney Medicine [facility] Comment on above: follow up in r per Dr Olivares Start: 10-17-2024 Covid-19 Vaccine () Covid-19 Vaccine () [facility] Start: 09-14-2024 End: 09-14-2024 Patient encounter procedure 09/14/2024 9:00 AM EDT Office Visit [facility] [employer] General Rheumatology and Arthritis [address] [place], [place] [phone] Dorota Smith MD [address] [place], [place] [id number] RA/Trans from Dr Daniel to [facility] General Rheumatology and Arthritis Comment on above: RA/Trans from Dr Ruben welsh to Y[facility] Start: 08-09-2024 End: 08-09-2024 Patient encounter procedure 08/09/2024 7:00 AM EDT Appointment Infusion Center [address] [place] [id number] rituximab, M32.30 , ignacio(RK) Infusion Center Comment on above: rituximab, M32.30 , ignacio(RK) Start: 07-17-2024 End: 07-17-2024 Patient encounter procedure 07/17/2024 11:20 AM EDT Office Visit Kidney [facility] [address] [place] [id number] Anthony Olivares MD [address] [place] [address] Vasculitis Renal follow up [facility] Comment on above: Vasculitis Renal fol low up Start: 07-15-2024 Covid-19 Vaccine ( season) Covid-19 Vaccine ( season) [facility] Start: 07-15-2024 Covid-19 Vaccine ( season) Covid-19 Vaccine ( season) [facility] Start: 07-15-2024 Influenza vaccination Influenza Vacc ine (#1) [facility] Start: 05-21-2024 End: 05-21-2024 Patient encounter procedure 05/21/2024 9:20 AM EDT Office Visit [facility] [employer] General Rheumatology and Arthritis [address] [place] [address] Dorota Smith MD [address] [place], [place] [id number] RA/Trans from Dr Daniel to [facility] General Rheumatology and Arthritis Comment on above: RA/Trans from Dr Ruben welsh to [facility] Start: 03-09-2024 Lipid panel Lipid Screening [facility] Start: 02-21-2024 PROSTATE CANCER SCREENING DISCUSSION PROSTATE CANCER SCREENING DISCUSSION [facility] Start: 02-21-2024 Prostate specific antigen measurement Prostate Cancer Screening Discussion [facility] Start: 12-20-2023 End: 03-20-2024 25-hydroxyvitamin D3 [Mass/volume] in Serum or Plasma [facility] Work Phone: Comment on above: Expected: 12/20/2023 , Expires: 03/20/2024 Start: 12-12-2023 Covid-19 Vaccine () Covid-19 Vaccine () [facility] Start: 11-14-2023 Behavioral Health Screening Behavioral Health Screening [facility] Start: 11-14-2023 Depression Assessment Depression Ass [facility] Start: 11-04-2023 Diabetes Screening Diabetes Screenin g [facility] Start: 11-03-2023 BP CONTROLLED (<130/80) BP CONTROLLE D (<130/80) [facility] Start: 09-18-2023 DIABETES SCREEN DIABETES SCREEN [facility] Start: 09-18-2023 Diabetes Screening Diabetes Screenin [facility] Start: 08-09-2023 Lipid 1996 panel - S ellen or Plasma Lipid Screening [facility] Start: 08-09-2023 LIPID SCREEN LIPID SCREEN [facility] Start: 07-15-2023 Covid-19 Vaccine () Covid-19 Vaccine () [facility] Start: 07-15-2023 Influenza vaccination [facility] Start: 2023 RSV Vaccine (1 - 1-d ose 60+ series) RSV Vaccine (1 - 1-dose 60+ series) [facility] Start: 2023 RSV Vaccine (1 - Ris k 60-74 years 1-dose series) RSV Vaccine (1 - Risk 60-74 years 1-dose series) [facility] Start: 11-14-2022 DEPRESSION ASSESSMENT DEPRESSION ASS ESSMENT [facility] Start: 11-03-2022 End: 11-03-2023 Chronic hepatitis differentiation between hepatitis B and C virus panel - Serum or Plasma HEP REMOTE PANEL BL Lab Routine 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) Expected: 11/03/2022, Expires: 11/03/2023 [facility] Work Phone: Comment on above: Expected: 11/03/2022 , Expires: 11/03/2023 Start: 07-23-2022 Colonoscopy COLONOSCOPY [facility] Start: 07-23-2022 COLORECTAL CANCER SCREENING COLORECTAL CANCER SCREENING [facility] Start: 07-23-2022 Screening for malign ant neoplasm of colon [facility] Start: 07-15-2022 Influenza vaccination INFLUENZA (#1) [facility] Start: 04-29-2022 COVID-19 VACCINE (6 - Booster for Pfizer series) COVID-19 VACCINE (6 - Booster for Pfizer series) [facility] Start: 01-04-2022 COVID-19 VACCINE (5 - Booster for Pfizer series) COVID-19 VACCINE (5 - Booster for Pfizer series) [facility] Start: 11-14-2021 DEPRESSION ASSESSMENT DEPRESSION ASS ESSMENT [facility] Start: 11-04-2021 Creatinine measurement [facility] Start: 11-04-2021 Potassium monitoring Potassium monit oring [facility] Start: 11-02-2021 HEMOGLOBIN/HEMATOCRIT HEMOGLOBIN/HEM ATOCRIT [facility] Start: 09-18-2021 SERUM CREATININE SERUM CREATININE Cl [facility] Start: 11-09-2020 Influenza vaccination LUNG CANCER SC REENING [facility] Start: 11-09-2020 Screening for malign ant neoplasm of lung Lung Cancer Screening [facility] Start: 08-10-2020 Adult depression screening assessment DEPRESSION SCREENING [facility] Start: 07-15-2020 Influenza vaccination Flu vaccine (# 1) [employer] Start: 02-21-2020 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 DIPTI DISEASE VISIT ANNUAL PCP TEAM CHRONIC DISEASE VISIT [facility] Start: 07-10-2019 PNEUMOCOCCAL (3 - PP SV23 if available, else PCV20) PNEUMOCOCCAL (3 - PPSV23 if available, else PCV20) [facility] Start: 07-10-2019 PNEUMOCOCCAL (3 - PP SV23 or PCV20) PNEUMOCOCCAL (3 - PPSV23 or PCV20) [facility] Start: 07-10-2019 Pneumococcal vaccination Pneum ococcal Vaccine (3 - PPSV23 or PCV20) [facility] Start: 09-04-2018 Pneumococcal vaccination Pneum ococcal Vaccine (3 of 3 - PPSV23 or PCV20) [facility] Start: 08-16-2014 TWO PNEUMOVAX 5 YEAR S APART PRIOR TO AGE 65 (#2) TWO PNEUMOVAX 5 YEARS APART PRIOR TO AGE 65 (#2) [facility] Start: 2013 SHINGRIX VACCINE (1 of 2) SHINGRIX VACCINE (1 of 2) [facility] Start: 2008 COLOGUARD (FIT-DNA) COLOGUARD (FIT-D NA) [facility] Start: [address] COLONOGRAPHY [facility] Start: 2008 FECAL OCCULT BLOOD FECAL OCCULT BLOO D [facility] Start: 2008 Screening for malign ant neoplasm of colon [facility] Start: 2008 SIGMOIDOSCOPY SIGMOIDOSCOPY [facility] Start: 1982 SHINGRIX VACCINE (1 of 2) SHINGRIX VACCINE (1 of 2) [facility] Start: 1982 Urine microalbumin profile [facility] Start: 1981 Annual PCP Team [employer] Operator dipti Disease Visit Annual PCP Team Chronic Disease Visit [facility] Start: 1981 Anxiety Screening Anxiety Screening [facility] Start: 1981 BP CONTROLLED (<130/80) BP CONTROLLE D (<130/80) [facility] Start: 1981 Depression Screening Depression Scre ening [facility] CBC Auto Differential CBC Auto D ifferential Lab Routine Daily until discontinued starting 11/03/2020, 2 completed [facility] [place] Comment on above: Daily until disconti nued starting 11/03/2020, 2 completed End: 12-19-2024 CBC W Auto Differential panel - Blood CBC + DIFF Lab Routine Stage 3b chronic kidney disease (HCC) 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) Once per month for 13 Occurrences starting 12/20/2023 until 12/19/2024, 1 completed [facility] Work Phone: Comment on above: Once per month for 1 3 Occurrences starting 12/20/2023 until 12/19/2024, 1 completed End: 12-19-2024 Comprehensive metabolic 2000 panel - Serum or Plasma COMP METABOLIC PANEL Lab Routine Stage 3b chronic kidney disease (HCC) 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) Once per month for 13 Occurrences starting 12/20/2023 until 12/19/2024, 1 completed [facility] Work Phone: Comment on above: Once per month for 1 3 Occurrences starting 12/20/2023 until 12/19/2024, 1 completed Comprehensive Metabo lic Panel w/ Reflex to MG Comprehensive Metabolic Panel w/ Reflex to MG Lab Routine Daily until discontinued starting 10/28/2020, 7 completed [email or web address] [place], [place] Comment on above: Daily until disconti nued starting 10/28/2020, 7 completed Nasal Cannula Oxygen Nasal Cannu la Oxygen Respiratory Care Routine Daily until discontinued starting 10/28/2020 [facility] [place] Comment on above: Daily until disconti nued starting 10/28/2020 Nebulizer therapy HHN Treatment Respiratory Care Routine 0600, 1000, 1400, 1800, 2200 until discontinued starting 10/30/2020 [facility] [place] Comment on above: 0600, 1000, 1400, 18 00, 2200 until discontinued starting 10/30/2020 Oxygen therapy [[facility] Data Set] Initiate Oxygen Therapy Protocol Respiratory Care Routine Daily until discontinued [facility] 10/28[facility]2020 [facility] [place] [place] Comment on above: Daily until disconti nued starting 10/28/2020 End: 12-19-2024 Phosphate [Mass/volume] in Serum or Plasma PHOSPHORUS INORGANIC Lab Routine Stage 3b chronic kidney disease (HCC) 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) Once per month for 13 Occurrences starting 12/20/2023 until 12/19/2024, 1 completed [facility] Work Phone: Comment on above: Once per month for 1 3 Occurrences starting 12/20/2023 until 12/19/2024, 1 completed End: 12-19-2024 Protein/Creatinine [Mass Ratio] in Urine PROTEIN CREATININE RATIO Lab Routine 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) Once per month for 13 Occurrences starting 12/20/2023 until 12/19/2024 [facility] Work Phone: Comment on above: Once per month for 1 3 Occurrences starting 12/20/2023 until 12/19/2024 UA DIP, URINE (POC) UA DIP, URIN E (POC) Lab Routine Screening for genitourinary condition 1 Occurrences starting 11/20/2024 [facility] Work Phone: Comment on above: 1 Occurrences starti ng 11/20/2024 End: 12-19-2024 Urinalysis complete panel - Urine URINALYSIS, WITH MICROSCOPIC Lab Routine 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) Once per month for 13 Occurrences starting 12/20/2023 until 12/19/2024 [facility] Work Phone: Comment on above: Once per month for 1 3 Occurrences starting 12/20/2023 until 12/19/2024 [facility] Immunizations Immunization Date Immunization Notes Care Provider [facility] 08-15-2023 influenza virus vacc ine, unspecified formulation Dorota Smith MD Work Phone: [facility] 08-18-2021 influenza, injectabl e, quadrivalent, preservative free Anthony Olivares MD Work Phone: [facility] Work Phone: 08-18-2021 influenza virus vacc ine, unspecified formulation Luz Daniel MD Work Phone: [facility] 08-14-2021 COVID-19 vaccine, ag e 12+ yr ([employer] - [facility]) Anthony Olivares MD Work Phone: [facility] Work Phone: 08-17-2019 influenza, injectabl e, quadrivalent, preservative free Anthony Olivares MD Work Phone: [facility] 08-02-2018 influenza, injectabl e, quadrivalent, preservative free Anthony Olivares MD Work Phone: [facility] 07-10-2018 pneumococcal conjuga te vaccine, 13 valent Anthony Olivares MD Work Phone: [facility] 08-14-2016 Influenza virus vaccine [facility] 08-14-2016 influenza, seasonal, injectable, preservative free Anthony Olivares MD Work Phone: [facility] Work Phone: 07-30-2016 influenza, injectabl e, quadrivalent, contains preservative Anthony Olivares MD Work Phone: [facility] 08-21-2015 influenza, injectabl e, quadrivalent, contains preservative Anthony Olivares MD Work Phone: [facility] 09-27-2014 influenza, seasonal, injectable Anthony Olivares MD Work Phone: [facility] 09-06-2013 influenza virus vacc ine, unspecified formulation Anthony Olivares MD Work Phone: [facility] 09-07-2012 influenza virus vacc ine, unspecified formulation Anthony Olivares MD Work Phone: [facility] Work Phone: 11-24-2010 influenza virus vacc ine, unspecified formulation Anthony Olivares MD Work Phone: [facility] Work Phone: 08-16-2009 influenza virus vacc ine, unspecified formulation Anthony Olivares MD Work Phone: [facility] 08-16-2009 pneumococcal polysaccharide vaccine, 23 valent Anthony Olivares MD Work Phone: [facility] 10-15-2000 influenza virus vacc ine, whole virus Anthony Olivares MD Work Phone: [facility] Work Phone: Payers Date Payer Category Payer Self-pay [id number] [phone] [id number] 2020 Medicaid [id number] 2020 Medicare [id number] 2020 Medicare UHC MEDICARE MYC ARE UHC MEDICARE [id number] 2020-Present [phone] [address] [place] [address] Medicare [id number] 2020 Medicare (Managed Care) [facility] MEDICARE [id number] 2020 Private Health Insurance [id number]. [id number] 2016 Medicaid [id number] 2002 Medicare [id number] 1965 Unknown [id number] 2.840.1.963729.3.579.2. 651 1963 Unknown [id number] 2.16840.1.218779.3.579.2. 651 Unknown [id number] 2.840.1.556578.3.579.2. 462 Unknown [id number] 2.16840.1.201731.3.579.2. 462 Unknown [id number] 2.16.840.1.463356.3.579.2. 462 Unknown [id number] 2.16.840.1.246645.3.579.2. 462 Unknown [id number] 2.16840.1.899108.3.579.2. 462 Unknown [id number] 2.840.1.690457.3.579.2. 462 Unknown [id number] 2.16.840.1.050381.3.579.2. 462 Unknown [id number] 2.16.840.1.073163.3.579.2. 462 Unknown [id number] 2.16.840.1.982603.3.579.2. 462 Unknown [id number] 2.16.840.1.250950.3.579.2. 462 Unknown [id number] 2.16.840.1.775411.3.579.2. 462 Unknown [id number] 2.16.840.1.940025.3.579.2. 462 Unknown [id number] 2.840.1.089692.3.579.2. 462 Unknown [id number] 2.840.1.162302.3.579.2. 462 Unknown [id number] 2.840.1.891650.3.579.2. 462 Unknown [id number] 2.840.1.409306.3.579.2. 462 Unknown [id number] 2.840.1.382401.3.579.2. 462 Unknown [id number] 2.840.1.602523.3.579.2. 462 Unknown [id number] 2.840.1.963701.3.579.2. 462 Unknown [id number] 2.840.1.631249.3.579.2. 462 Unknown [id number] 2.16840.1.880867.3.579.2. 462 Unknown [id number] 2.16.840.1.577202.3.579.2. 462 Unknown [id number] 2.16.840.1.784308.3.579.2. 462 Unknown [id number] 2.16.840.1.744731.3.579.2. 462 Unknown [id number] 2.16840.1.093163.3.579.2. 462 Unknown [id number] 2.16.840.1.389342.3.579.2. 462 Unknown [id number] 2.16.840.1.655573.3.579.2. 462 Social History Date Type Detail Facility Start: 10-28-2020 End: 09-14-2024 Tobacco smoking status NHIS Former smoker [facility] Start: 01-19-1973 End: 01-19-2015 History of tobacco use Current smoker [facility] Start: 1965 Sex Assigned At Not on file [place], [place] Exposure to SARS-CoV -2 (event) Yes [place] Start: 03-02-2019 End: 03-02-2019 Tobacco smoking status NHIS Unknown if ever smoked [facility] Start: 03-02-2019 None [facility] Start: 03-02-2019 Spouse/ Signif icant Other;With Family [facility] Start: 04-04-2018 Non-smoker [facility] Start: 1965 Sex Assigned At Male [facility] Start: 01-19-1973 End: 01-19-2015 History of tobacco use Cigarette Smoker [facility] Start: 02-11-2015 End: 10-19-2020 Cigarettes smoked current (pack per day) - Reported 1.5 [facility] Start: 02-11-2015 End: 09-14-2024 Tobacco use and exposure Smokeless tobacco non-user [facility] Start: 02-26-2022 End: 09-14-2024 Alcohol intake Current non-drinker of alcohol (finding) [facility] Start: 04-25-2022 End: 05-05-2022 Exposure to SARS-CoV-2 (event) Not sure [facility] Start: 10-19-2020 End: 08-27-2022 Tobacco use panel [facility] PHQ2 Score 5 [facility] Start: 03-02-2019 End: 03-02-2019 Tobacco smoking status NHIS Never smoked tobacco (finding) [facility] Start: 01-18-2025 End: 02-28-2025 Sex Male (finding) [facility] Medical Equipment Procedure Code Equipment Code Equipment Original Text Equipment Identifier Dates Ozq-Iu-I-Kind Implant - [id number] Start: 07-16-2015 Comment on above: Description: C1713 M TP PLATE Lac-Fe-F-Kind Implant - [id number] Start: 07-16-2015 Comment on above: Description: 3MM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 54 year old male who was referred by Dr. Aissatou Culp [[facility]] for diagnosis of events. No typical events during the admission. PLAN: - Do not restart VPA Convulsions 08/10/2019 08/23/2019 Last Assessment & Plan: Gastroesophageal reflux disease with esophagitis 04/27/2018 07/10/2018 Overview: Added automatically from request for surgery [id number] Stage 4 chronic renal impair ment associated with type 2 diabetes mellitus 04/07/2017 07/15/2017 Malnutrition of mild degree 08/14/201606/15 Pain of toe of left foot 02/17/2016 018 Constitutional obesity 07/14/2015 8 Constipation 02/20/2013 07/10/2018 Diarrhea 02/20/2013 07/10/2018 Rheumatoid arthritis(714.0) 12/08/201206/15 Enthesopathy of unspecified site 11/25/2010 07/10/2018 Other physical therapy 11/25/2010 8 Contusion of unspecified site 03/30/2010 Achilles bursitis or tendinitis 03/20/2010 07/30/2016 Gastritis, chronic 02/11/2010 07/10/2018 Overview: Severe, per EGD 2007 -- see notes; Feels best on twice-daily PPI Routine general medical exam ination at a health care facility 10/21/2009 01/29/2013 Overview: 10/21/2009, from Dr. Stuart (pre-op physical, for podiatry) 06/28/2011, yearly check Tobacco abuse 10/21/2009 07/10/2018 Nontraumatic rupture of other tendons of foot an d ankle 10/08/2009 07/30/2016 Acute gastritis without mention of hemorrhage 02/11/2010 Pneumonia, organism unspecified(486) 01/29/2008 02/11/2010 documented as of this encounter (statuses as of 11/02/2022) [facility] Narrative* Problem Noted Date Resolved Date Encephalopathy 08/16/2019 08/23/2019 Last Assessment & Plan: POA Assessment: 54 year old male who was referred by Dr. Aissatou Culp [[facility]] for diagnosis of events. No typical events during the admission. PLAN: - Do not restart VPA Convulsions 08/10/2019 08/23/2019 Last Assessment & Plan: Gastroesophageal reflux disease with esophagitis 04/27/2018 07/10/2018 Overview: Added automatically from request for surgery [id number] Stage 4 chronic renal impair ment associated with type 2 diabetes mellitus 04/07/2017 07/15/2017 Malnutrition of mild degree 08/14/201606/15 Pain of toe of left foot 02/17/2016 018 Constitutional obesity 07/14/2015 8 Constipation 02/20/2013 07/10/2018 Diarrhea 02/20/2013 07/10/2018 Rheumatoid arthritis(714.0) 12/08/201206/15 Enthesopathy of unspecified site 11/25/2010 07/10/2018 Other physical therapy 11/25/2010 8 Contusion of unspecified site 03/30/2010 Achilles bursitis or tendinitis 03/20/2010 07/30/2016 Gastritis, chronic 02/11/2010 07/10/2018 Overview: Severe, per EGD 2007 -- see notes; Feels best on twice-daily PPI Routine general medical exam ination at a health care facility 10/21/2009 01/29/2013 Overview: 10/21/2009, from Dr. Stuart (pre-op physical, for podiatry) 06/28/2011, yearly check Tobacco abuse 10/21/2009 07/10/2018 Nontraumatic rupture of other tendons of foot an d ankle 10/08/2009 07/30/2016 Acute gastritis without mention of hemorrhage 02/11/2010 Pneumonia, organism unspecified(486) 01/29/2008 02/11/2010 documented as of this encounter (statuses as of 11/02/2022) [facility] Narrative* Problem Noted Date Resolved Date Encephalopathy 08/16/2019 08/23/2019 Last Assessment & Plan: POA Assessment: 54 year old male who was referred by Dr. Aissatou Culp [[facility]] for diagnosis of events. No typical events during the admission. PLAN: - Do not restart VPA Convulsions 08/10/2019 08/23/2019 Last Assessment & Plan: Gastroesophageal reflux disease with esophagitis 04/27/2018 07/10/2018 Overview: Added automatically from request for surgery [id number] Stage 4 chronic renal impair ment associated with type 2 diabetes mellitus 04/07/2017 07/15/2017 Malnutrition of mild degree 08/14/201606/15 Pain of toe of left foot 02/17/2016 018 Constitutional obesity 07/14/2015 8 Constipation 02/20/2013 07/10/2018 Diarrhea 02/20/2013 07/10/2018 Rheumatoid arthritis(714.0) 12/08/201206/15 Enthesopathy of unspecified site 11/25/2010 07/10/2018 Other physical therapy 11/25/2010 8 Contusion of unspecified site 03/30/2010 Achilles bursitis or tendinitis 03/20/2010 07/30/2016 Gastritis, chronic 02/11/2010 07/10/2018 Overview: Severe, per EGD 2007 -- see notes; Feels best on twice-daily PPI Routine general medical exam ination at a health care facility 10/21/2009 01/29/2013 Overview: 10/21/2009, from Dr. Stuart (pre-op physical, for podiatry) 06/28/2011, yearly check Tobacco abuse 10/21/2009 07/10/2018 Nontraumatic rupture of other tendons of foot an d ankle 10/08/2009 07/30/2016 Acute gastritis without mention of hemorrhage 02/11/2010 Pneumonia, organism unspecified(486) 01/29/2008 02/11/2010 documented as of this encounter (statuses as of 11/03/2022) [facility]10-[facility]-2019 History of Past illness Narrative* Problem Noted Date Resolved Date Encephalopathy 08/16/2019 08/23/2019 Last Assessment & Plan: POA Assessment: 54 year old male who was referred by Dr. Aissatou Culp [[facility]] for diagnosis of events. No typical events during the admission. PLAN: - Do not restart VPA Convulsions 08/10/2019 08/23/2019 Last Assessment & Plan: Gastroesophageal reflux disease with esophagitis 04/27/2018 07/10/2018 Overview: Added automatically from request for surgery [id number] Stage 4 chronic renal impair ment associated with type 2 diabetes mellitus 04/07/2017 07/15/2017 Malnutrition of mild degree 08/14/201606/15 Pain of toe of left foot 02/17/2016 018 Constitutional obesity 07/14/2015 8 Constipation 02/20/2013 07/10/2018 Diarrhea 02/20/2013 07/10/2018 Rheumatoid arthritis(714.0) 12/08/201206/15 Enthesopathy of unspecified site 11/25/2010 07/10/2018 Other physical therapy 11/25/2010 8 Contusion of unspecified site 03/30/2010 Achilles bursitis or tendinitis 03/20/2010 07/30/2016 Gastritis, chronic 02/11/2010 07/10/2018 Overview: Severe, per EGD 2007 -- see notes; Feels best on twice-daily PPI Routine general medical exam ination at a health care facility 10/21/2009 01/29/2013 Overview: 10/21/2009, from Dr. Stuart (pre-op physical, for podiatry) 06/28/2011, yearly check Tobacco abuse 10/21/2009 07/10/2018 Nontraumatic rupture of other tendons of foot an d ankle 10/08/2009 07/30/2016 Acute gastritis without mention of hemorrhage 02/11/2010 Pneumonia, organism unspecified(486) 01/29/2008 02/11/2010 documented as of this encounter (statuses as of 02/25/2023) [facility] History of Past illness Narrative* Problem Noted Date Diagnosed Date Resolved Date Encephalopathy 08/16/2019 08/23/2019 Last Assessment & Plan: POA Assessment: 54 year old male who was referred by Dr. Aissatou Culp [[facility]] for diagnosis of events. No typical events during the admission. PLAN: - Do not restart VPA Convulsions 08/10/2019 08/23/2019 Last Assessment & Plan: Gastroesophageal reflux dise ase with esophagitis 04/27/2018 07/10/2018 Overview: Added automatically from request for surgery [id number] Stage 4 chronic renal impair ment associated with type 2 diabetes mellitus 04/07/2017 07/15/2017 Malnutrition of mild degree 08/14/2016 07/10/2018 Pain of toe of left foot 02/17/2016 Constitutional obesity 07/14/201507/10 Constipation 02/20/2013 07/10/2018 Diarrhea 02/20/2013 07/10/2018 Rheumatoid arthritis(714.0) 12/08/2012 07/10/2018 Enthesopathy of unspecified site 11/25/2010 07/10/2018 Other physical therapy 11/25/201007/10 Contusion of unspecified site 03/30/2010 07/30/2016 Achilles bursitis or tendinitis 03/20/2010 07/30/2016 Gastritis, chronic 02/11/2010 8 Overview: Severe, per EGD 2007 -- see notes; Feels best on twice-daily PPI Routine general medical exam ination at a health care facility 10/21/2009 01/29/2013 Overview: 10/21/2009, from Dr. Stuart (pre-op physical, for podiatry) 06/28/2011, yearly check Tobacco abuse 10/21/2009 07/10/2018 Nontraumatic rupture of othe r tendons of foot and ankle 10/08/2009 07/30/2016 Acute gastritis without mention of hemorrhage 05/28/20 08 02/11/2010 Pneumonia, organism unspecified(486) 01/29/2008 02/11/2010 documented as of this encounter (statuses as of 08/26/2023) [facility] History of Past illness Narrative* Problem Noted Date Diagnosed Date Resolved Date Encephalopathy 08/16/2019 08/23/2019 Last Assessment & Plan: POA Assessment: 54 year old male who was referred by Dr. Aissatou Culp [[facility]] for diagnosis of events. No typical events during the admission. PLAN: - Do not restart VPA Convulsions 08/10/2019 08/23/2019 Last Assessment & Plan: Gastroesophageal reflux dise ase with esophagitis 04/27/2018 07/10/2018 Overview: Added automatically from request for surgery [id number] Stage 4 chronic renal impair ment associated with type 2 diabetes mellitus 04/07/2017 07/15/2017 Malnutrition of mild degree 08/14/2016 07/10/2018 Pain of toe of left foot 02/17/2016 Constitutional obesity 07/14/201507/10 Constipation 02/20/2013 07/10/2018 Diarrhea 02/20/2013 07/10/2018 Rheumatoid arthritis(714.0) 12/08/2012 07/10/2018 Enthesopathy of unspecified site 11/25/2010 07/10/2018 Other physical therapy 11/25/201007/10 Contusion of unspecified site 03/30/2010 07/30/2016 Achilles bursitis or tendinitis 03/20/2010 07/30/2016 Gastritis, chronic 02/11/2010 8 Overview: Severe, per EGD 2007 -- see notes; Feels best on twice-daily PPI Routine general medical exam ination at a health care facility 10/21/2009 01/29/2013 Overview: 10/21/2009, from Dr. Stuart (pre-op physical, for podiatry) 06/28/2011, yearly check Tobacco abuse 10/21/2009 07/10/2018 Nontraumatic rupture of othe r tendons of foot and ankle 10/08/2009 07/30/2016 Acute gastritis without mention of hemorrhage 05/28/2002/11/2010 Pneumonia, organism unspecified(486) 01/29/2008 02/11/2010 documented as of this encounter (statuses as of 08/31/2023) [facility] History of Past illness Narrative* Problem Noted Date Diagnosed Date Resolved Date Encephalopathy 08/16/2019 08/23/2019 Last Assessment & Plan: POA Assessment: 54 year old male who was referred by Dr. Aissatou Culp [[facility]] for diagnosis of events. No typical events during the admission. PLAN: - Do not restart VPA Convulsions 08/10/2019 08/23/2019 Last Assessment & Plan: Gastroesophageal reflux dise ase with esophagitis 04/27/2018 07/10/2018 Overview: Added automatically from request for surgery [id number] Stage 4 chronic renal impair ment associated with type 2 diabetes mellitus 04/07/2017 07/15/2017 Malnutrition of mild degree 08/14/2016 07/10/2018 Pain of toe of left foot 02/17/2016 Constitutional obesity 07/14/201507/10 Constipation 02/20/2013 07/10/2018 Diarrhea 02/20/2013 07/10/2018 Rheumatoid arthritis(714.0) 12/08/2012 07/10/2018 Enthesopathy of unspecified site 11/25/2010 07/10/2018 Other physical therapy 11/25/201007/10 Contusion of unspecified site 03/30/2010 07/30/2016 Achilles bursitis or tendinitis 03/20/2010 07/30/2016 Gastritis, chronic 02/11/2010 8 Overview: Severe, per EGD 2007 -- see notes; Feels best on twice-daily PPI Routine general medical exam ination at a health care facility 10/21/2009 01/29/2013 Overview: 10/21/2009, from Dr. Stuart (pre-op physical, for podiatry) 06/28/2011, yearly check Tobacco abuse 10/21/2009 07/10/2018 Nontraumatic rupture of othe r tendons of foot and ankle 10/08/2009 07/30/2016 Acute gastritis without mention of hemorrhage 05/28/20 08 02/11/2010 Pneumonia, organism unspecified(486) 01/29/2008 02/11/2010 documented as of this encounter (statuses as of 12/20/2023) [facility] History of Past illness Narrative* Problem Noted Date Diagnosed Date Resolved Date Encephalopathy 08/16/2019 08/23/2019 Last Assessment & Plan: POA Assessment: 54 year old male who was referred by Dr. Aissatou Culp [[facility]] for diagnosis of events. No typical events during the admission. PLAN: - Do not restart VPA Convulsions 08/10/2019 08/23/2019 Last Assessment & Plan: Gastroesophageal reflux dise ase with esophagitis 04/27/2018 07/10/2018 Overview: Added automatically from request for surgery [id number] Stage 4 chronic renal impair ment associated with type 2 diabetes mellitus 04/07/2017 07/15/2017 Malnutrition of mild degree 08/14/2016 07/10/2018 Pain of toe of left foot 02/17/2016 Constitutional obesity 07/14/201507/10 Constipation 02/20/2013 07/10/2018 Diarrhea 02/20/2013 07/10/2018 Rheumatoid arthritis(714.0) 12/08/2012 07/10/2018 Enthesopathy of unspecified site 11/25/2010 07/10/2018 Other physical therapy 11/25/201007/10 Contusion of unspecified site 03/30/2010 07/30/2016 Achilles bursitis or tendinitis 03/20/2010 07/30/2016 Gastritis, chronic 02/11/2010 8 Overview: Severe, per EGD 2007 -- see notes; Feels best on twice-daily PPI Routine general medical exam ination at a health care facility 10/21/2009 01/29/2013 Overview: 10/21/2009, from Dr. Stuart (pre-op physical, for podiatry) 06/28/2011, yearly check Tobacco abuse 10/21/2009 07/10/2018 Nontraumatic rupture of othe r tendons of foot and ankle 10/08/2009 07/30/2016 Acute gastritis without mention of hemorrhage 05/28/2002/11/2010 Pneumonia, organism unspecified(486) 01/29/2008 02/11/2010 documented as of this encounter (statuses as of 12/23/2023) [facility] History of Past illness Narrative* Problem Noted Date Diagnosed Date Resolved Date Encephalopathy 08/16/2019 08/23/2019 Last Assessment & Plan: POA Assessment: 54 year old male who was referred by Dr. Aissatou Culp [[facility]] for diagnosis of events. No typical events during the admission. PLAN: - Do not restart VPA Convulsions 08/10/2019 08/23/2019 Last Assessment & Plan: Gastroesophageal reflux dise ase with esophagitis 04/27/2018 07/10/2018 Overview: Added automatically from request for surgery [id number] Stage 4 chronic renal impair ment associated with type 2 diabetes mellitus 04/07/2017 07/15/2017 Malnutrition of mild degree 08/14/2016 07/10/2018 Pain of toe of left foot 02/17/2016 Constitutional obesity 07/14/201507/10 Constipation 02/20/2013 07/10/2018 Diarrhea 02/20/2013 07/10/2018 Rheumatoid arthritis(714.0) 12/08/2012 07/10/2018 Enthesopathy of unspecified site 11/25/2010 07/10/2018 Other physical therapy 11/25/201007/10 Contusion of unspecified site 03/30/2010 07/30/2016 Achilles bursitis or tendinitis 03/20/2010 07/30/2016 Gastritis, chronic 02/11/2010 8 Overview: Severe, per EGD 2007 -- see notes; Feels best on twice-daily PPI Routine general medical exam ination at a health care facility 10/21/2009 01/29/2013 Overview: 10/21/2009, from Dr. Stuart (pre-op physical, for podiatry) 06/28/2011, yearly check Tobacco abuse 10/21/2009 07/10/2018 Nontraumatic rupture of othe r tendons of foot and ankle 10/08/2009 07/30/2016 Acute gastritis without mention of hemorrhage 05/28/20 08 02/11/2010 Pneumonia, organism unspecified(486) 01/29/2008 02/11/2010 documented as of this encounter (statuses as of 12/23/2023) [facility] History of Past illness Narrative* Problem Noted Date Diagnosed Date Resolved Date Encephalopathy 08/16/2019 08/23/2019 Last Assessment & Plan: POA Assessment: 54 year old male who was referred by Dr. Aissatou Culp [[facility]] for diagnosis of events. No typical events during the admission. PLAN: - Do not restart VPA Convulsions 08/10/2019 08/23/2019 Last Assessment & Plan: Gastroesophageal reflux dise ase with esophagitis 04/27/2018 07/10/2018 Overview: Added automatically from request for surgery [id number] Stage 4 chronic renal impair ment associated with type 2 diabetes mellitus 04/07/2017 07/15/2017 Malnutrition of mild degree 08/14/2016 07/10/2018 Pain of toe of left foot 02/17/2016 Constitutional obesity 07/14/201507/10 Constipation 02/20/2013 07/10/2018 Diarrhea 02/20/2013 07/10/2018 Rheumatoid arthritis(714.0) 12/08/2012 07/10/2018 Enthesopathy of unspecified site 11/25/2010 07/10/2018 Other physical therapy 11/25/201007/10 Contusion of unspecified site 03/30/2010 07/30/2016 Achilles bursitis or tendinitis 03/20/2010 07/30/2016 Gastritis, chronic 02/11/2010 8 Overview: Severe, per EGD 2007 -- see notes; Feels best on twice-daily PPI Routine general medical exam ination at a health care facility 10/21/2009 01/29/2013 Overview: 10/21/2009, from Dr. Stuart (pre-op physical, for podiatry) 06/28/2011, yearly check Tobacco abuse 10/21/2009 07/10/2018 Nontraumatic rupture of othe r tendons of foot and ankle 10/08/2009 07/30/2016 Acute gastritis without mention of hemorrhage 05/28/20 08 02/11/2010 Pneumonia, organism unspecified(486) 01/29/2008 02/11/2010 documented as of this encounter (statuses as of 12/27/2023) [facility] History of Past illness Narrative* Problem Noted Date Diagnosed Date Resolved Date Encephalopathy 08/16/2019 08/23/2019 Last Assessment & Plan: POA Assessment: 54 year old male who was referred by Dr. Aissatou Culp [[facility]] for diagnosis of events. No typical events during the admission. PLAN: - Do not restart VPA Convulsions 08/10/2019 08/23/2019 Last Assessment & Plan: Gastroesophageal reflux dise ase with esophagitis 04/27/2018 07/10/2018 Overview: Added automatically from request for surgery [id number] Stage 4 chronic renal impair ment associated with type 2 diabetes mellitus 04/07/2017 07/15/2017 Malnutrition of mild degree 08/14/2016 07/10/2018 Pain of toe of left foot 02/17/2016 Constitutional obesity 07/14/201507/10 Constipation 02/20/2013 07/10/2018 Diarrhea 02/20/2013 07/10/2018 Rheumatoid arthritis(714.0) 12/08/2012 07/10/2018 Enthesopathy of unspecified site 11/25/2010 07/10/2018 Other physical therapy 11/25/201007/10 Contusion of unspecified site 03/30/2010 07/30/2016 Achilles bursitis or tendinitis 03/20/2010 07/30/2016 Gastritis, chronic 02/11/2010 8 Overview: Severe, per EGD 2007 -- see notes; Feels best on twice-daily PPI Routine general medical exam ination at a health care facility 10/21/2009 01/29/2013 Overview: 10/21/2009, from Dr. Stuart (pre-op physical, for podiatry) 06/28/2011, yearly check Tobacco abuse 10/21/2009 07/10/2018 Nontraumatic rupture of othe r tendons of foot and ankle 10/08/2009 07/30/2016 Acute gastritis without mention of hemorrhage 05/28/20 08 02/11/2010 Pneumonia, organism unspecified(486) 01/29/2008 02/11/2010 documented as of this encounter (statuses as of 01/26/2024) [facility] History of Past illness Narrative* Problem Noted Date Diagnosed Date Resolved Date Encephalopathy 08/16/2019 08/23/2019 Last Assessment & Plan: POA Assessment: 54 year old male who was referred by Dr. Aissatou Culp [[facility]] for diagnosis of events. No typical events during the admission. PLAN: - Do not restart VPA Convulsions 08/10/2019 08/23/2019 Last Assessment & Plan: Gastroesophageal reflux dise ase with esophagitis 04/27/2018 07/10/2018 Overview: Added automatically from request for surgery [id number] Stage 4 chronic renal impair ment associated with type 2 diabetes mellitus 04/07/2017 07/15/2017 Malnutrition of mild degree 08/14/2016 07/10/2018 Pain of toe of left foot 02/17/2016 Constitutional obesity 07/14/201507/10 Constipation 02/20/2013 07/10/2018 Diarrhea 02/20/2013 07/10/2018 Rheumatoid arthritis(714.0) 12/08/2012 07/10/2018 Enthesopathy of unspecified site 11/25/2010 07/10/2018 Other physical therapy 11/25/201007/10 Contusion of unspecified site 03/30/2010 07/30/2016 Achilles bursitis or tendinitis 03/20/2010 07/30/2016 Gastritis, chronic 02/11/2010 8 Overview: Severe, per EGD 2007 -- see notes; Feels best on twice-daily PPI Routine general medical exam ination at a health care facility 10/21/2009 01/29/2013 Overview: 10/21/2009, from Dr. Stuart (pre-op physical, for podiatry) 06/28/2011, yearly check Tobacco abuse 10/21/2009 07/10/2018 Nontraumatic rupture of othe r tendons of foot and ankle 10/08/2009 07/30/2016 Acute gastritis without mention of hemorrhage 05/28/20 08 02/11/2010 Pneumonia, organism unspecified(486) 01/29/2008 02/11/2010 documented as of this encounter (statuses as of 01/27/2024) [facility] noteNo assessment information availableWMagruder Hospital Work Phone: Evaluation note* Diagnosis Granulomatosis with polyangiitis, unspecified whether renal involvement (HCC)- Primary [facility] Diagnosis 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 Stage 3b chronic kidney disease (HCC) Benign hypertension with chronic kidney disease Rheumatoid arthritis involving both hands 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 rheumatoid factor (HCC) Chronic pain of right knee [facility] 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 Vasculitis (HCC) Arteritis, unspecified [facility] Rheumatoid arthritis involving both hands 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 rheumatoid factor (HCC) Chronic pain of right knee [facility] Screening for genitourinary condition Screening for other and unspecified genitourinary condition [facility] Rheumatoid arthritis involving both hands 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 rheumatoid factor (HCC)- Primary [facility] Diagnosis 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 [facility] 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 [facility] Diagnosis Rheumatoid arthritis involving both hands 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 rheumatoid factor (HCC)- Primary 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) [facility] 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 Stage 3b chronic kidney disease (HCC) Benign hypertension with chronic kidney disease [facility] Screening for genitourinary condition Screening for other and unspecified genitourinary condition [facility] 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 [facility] Diagnosis Vasculitis (HCC)- Primary Arteritis, unspecified Stage 3b chronic kidney disease (HCC) 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) Benign hypertension with chronic kidney disease [facility] 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 Left ventricular systolic dysfunction Heart disease, unspecified PVC (premature ventricular contraction) Other premature beats Abnormal electrocardiogram (ECG) (EKG) Bipolar affective disorder (HCC) Bipolar disorder, unspecified Obesity, Class III, BMI 40-49.9 (morbid obesity) (HCC) Morbid obesity Rey's granulomatosis Hyperglycemia Other abnormal glucose Convulsions (HCC) Other convulsions Encephalopathy Encephalopathy, unspecified Abnormal electrocardiogram (ECG) (EKG) PATRICK (obstructive sleep apnea) Obstructive sleep apnea (adult) (pediatric) Recurrent falls Personal history of fall 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 Stage 3b chronic kidney disease (HCC) Benign hypertension with chronic kidney disease documented in this encounter [facility] note* Diagnosis 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 Left ventricular systolic dysfunction Heart disease, unspecified PVC (premature ventricular contraction) Other premature beats Abnormal electrocardiogram (ECG) (EKG) Bipolar affective disorder (HCC) Bipolar disorder, unspecified Obesity, Class III, BMI 40-49.9 (morbid obesity) (HCC) Morbid obesity Rey's granulomatosis Hyperglycemia Other abnormal glucose Convulsions (HCC) Other convulsions Encephalopathy Encephalopathy, unspecified Abnormal electrocardiogram (ECG) (EKG) PATRICK (obstructive sleep apnea) Obstructive sleep apnea (adult) (pediatric) Recurrent falls Personal history of fall Screening for genitourinary condition Screening for other and unspecified genitourinary condition documented in this encounter [facility] note* Diagnosis 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 Left ventricular systolic dysfunction Heart disease, unspecified PVC (premature ventricular contraction) Other premature beats Abnormal electrocardiogram (ECG) (EKG) Bipolar affective disorder (HCC) Bipolar disorder, unspecified Obesity, Class III, BMI 40-49.9 (morbid obesity) (HCC) Morbid obesity Rey's granulomatosis Hyperglycemia Other abnormal glucose Convulsions (HCC) Other convulsions Encephalopathy Encephalopathy, unspecified Abnormal electrocardiogram (ECG) (EKG) PATRICK (obstructive sleep apnea) Obstructive sleep apnea (adult) (pediatric) Recurrent falls Personal history of fall 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 documented in this encounter [facility] note* Diagnosis 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 Left ventricular systolic dysfunction Heart disease, unspecified PVC (premature ventricular contraction) Other premature beats Abnormal electrocardiogram (ECG) (EKG) Bipolar affective disorder (HCC) Bipolar disorder, unspecified Obesity, Class III, BMI 40-49.9 (morbid obesity) (HCC) Morbid obesity Hyperglycemia Other abnormal glucose Convulsions (HCC) Other convulsions Encephalopathy Encephalopathy, unspecified Abnormal electrocardiogram (ECG) (EKG) PATRICK (obstructive sleep apnea) Obstructive sleep apnea (adult) (pediatric) Recurrent falls Personal history of fall 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 Rash and nonspecific skin eruption Rash and other nonspecific skin eruption 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) documented in this encounter [facility] note* Diagnosis 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 Left ventricular systolic dysfunction Heart disease, unspecified PVC (premature ventricular contraction) Other premature beats Abnormal electrocardiogram (ECG) (EKG) Bipolar affective disorder (HCC) Bipolar disorder, unspecified Obesity, Class III, BMI 40-49.9 (morbid obesity) (HCC) Morbid obesity Hyperglycemia Other abnormal glucose Convulsions (HCC) Other convulsions Encephalopathy Encephalopathy, unspecified Abnormal electrocardiogram (ECG) (EKG) PATRICK (obstructive sleep apnea) Obstructive sleep apnea (adult) (pediatric) Recurrent falls Personal history of fall Screening for genitourinary condition Screening for other and unspecified genitourinary condition documented in this encounter [facility] note* Diagnosis 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 Left ventricular systolic dysfunction Heart disease, unspecified PVC (premature ventricular contraction) Other premature beats Abnormal electrocardiogram (ECG) (EKG) Bipolar affective disorder (HCC) Bipolar disorder, unspecified Obesity, Class III, BMI 40-49.9 (morbid obesity) (HCC) Morbid obesity Hyperglycemia Other abnormal glucose Convulsions (HCC) Other convulsions Encephalopathy Encephalopathy, unspecified Abnormal electrocardiogram (ECG) (EKG) PATRICK (obstructive sleep apnea) Obstructive sleep apnea (adult) (pediatric) Recurrent falls Personal history of fall 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 documented in this encounter [facility] note* Diagnosis 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 Left ventricular systolic dysfunction Heart disease, unspecified PVC (premature ventricular contraction) Other premature beats Abnormal electrocardiogram (ECG) (EKG) Bipolar affective disorder (HCC) Bipolar disorder, unspecified Obesity, Class III, BMI 40-49.9 (morbid obesity) (HCC) Morbid obesity Hyperglycemia Other abnormal glucose Convulsions (HCC) Other convulsions Encephalopathy Encephalopathy, unspecified Abnormal electrocardiogram (ECG) (EKG) PATRICK (obstructive sleep apnea) Obstructive sleep apnea (adult) (pediatric) Recurrent falls Personal history of fall 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 documented in this encounter [facility] for referral (narrative)* Diagnostic Procedure Only (Routine) - Closed Specialty Diagnoses / Procedures Referred By Contac t Referred To Contact XR IMAGING Diagnoses Chronic pain of right knee Procedures XR KNEE LIMITED 2V AP/LAT RIGHT RADIOLOGIC EXAMINATION KNEE 1/2 VIEWS Luz Daniel MD [address] [place] [address] Xr Imaging Referral ID Status Reason Start Date Expiration Date V isits Requested Visits Authorized [id number] Closed Auto-Generate d Referral 02/26/2022 03/28/2023 1 1 * Diagnostic Procedure Only (Routine) - Closed Specialty Diagnoses / Procedures Referred By Contac t Referred To Contact XR IMAGING Diagnoses Rheumatoid arthritis involving both hands 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 rheumatoid factor (HCC) Procedures XR FOOT GENERAL 3V AP/LAT/OBL RIGHT RADEX FOOT COMPLETE MINIMUM 3 VIEWS Luz Daniel MD [address] [place] [address] Xr Imaging Referral ID Status Reason Start Date Expiration Date V isits Requested Visits Authorized [id number] Closed Auto-Generate d Referral 02/26/2022 03/28/2023 1 1 * Diagnostic Procedure Only (Routine) - Closed Specialty Diagnoses / Procedures Referred By Contac t Referred To Contact XR IMAGING Diagnoses Rheumatoid arthritis involving both hands 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 rheumatoid factor (HCC) Procedures XR FOOT GENERAL 3V AP/LAT/OBL LEFT RADEX FOOT COMPLETE MINIMUM 3 VIEWS Luz Daniel MD [address] [place] [address] Xr Imaging Referral ID Status Reason Start Date Expiration Date V isits Requested Visits Authorized [id number] Closed Auto-Generate d Referral 02/26/2022 03/28/2023 1 1 * Diagnostic Procedure Only (Routine) - Closed Specialty Diagnoses / Procedures Referred By Contac t Referred To Contact XR IMAGING Diagnoses Rheumatoid arthritis involving both hands 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 rheumatoid factor (HCC) Procedures XR HAND GENERAL 3V PA/LAT/OBL RIGHT RADEX HAND MINIMUM 3 VIEWS Luz Daniel MD [address] [place] [id number] Xr Imaging Referral ID Status Reason Start Date Expiration Date V isits Requested Visits Authorized [id number] Closed Auto-Generate d Referral 02/26/2022 03/28/2023 1 1 * Diagnostic Procedure Only (Routine) - Closed Specialty Diagnoses / Procedures Referred By Contac t Referred To Contact XR IMAGING Diagnoses Rheumatoid arthritis involving both hands 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 rheumatoid factor (HCC) Procedures XR HAND GENERAL 3V PA/LAT/OBL LEFT RADEX HAND MINIMUM 3 VIEWS Luz Daniel MD [address] [place] [address] Xr Imaging Referral ID Status Reason Start Date Expiration Date V isits Requested Visits Authorized [id number] Closed Auto-Generate d Referral 02/26/2022 03/28/2023 1 1 [facility]No reason for referral information availableWMagruder Hospital Work Phone: Reason for visit Narrative* [place] Prior Authorization (Routine) - Authorized Specialty Diagnoses / Procedures Referred By Ulises t Referred To Contact Diagnoses 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) Procedures INJ RUXIENCE, 10 MG Anthony Olivares MD [address] [place] [address] Phone: tel: fax: Anthony Olivares MD [address] [place] [address] Phone: tel: fax: Referral ID Status Reason Start Date Expiration Date V isits Requested Visits Authorized [id number] Authorized 01/30/2025 01/31/2026 2 2 [facility] Summary Purpose Family History No Family History Records Found Relationship Condition Age at Onset Recorded Date/T alea Unknown Family History?Heart Disease Unknown April 02, 2018 1:49pm Family History?Heart Disease Unknown March 02, 2019 3:49pm Family History?No pertinent history Unkno wn March 02, 2019 3:49pm Relationship Condition Age at Onset Recorded Date/T alae Unknown Family History?Heart Disease Unknown April 02, 2018 12:49pm Family History?Heart Disease Unknown March 02, 2019 2:49pm Family History?No pertinent history Unkno wn March 02, 2019 2:49pm Advance Directives No Advanced Directives Records FoundLatest Code Status on File Code Status Date Activated Date Inactivated Comments Full Code 10/28/2020 7:36 PM Advance Directive Response Recorded Date/ Time Advance Directives No July 1:38am Living Will No March 02, 2019 1:12pm Power of Observer Electrical Prospecting No March 02 1:12pm Documents on File Type Date 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 Advance Directive(s) 08/17/2019 7:16 PM Advance Directive(s) 08/14/2019 9:32 AM Advance Directive(s) 07/23/2019 12:21 PM Advance Directive(s) 01/05/2019 9:49 AM Advance Directive(s) 06/12/2018 10:01 AM Advance Directive(s) 08/24/2016 10:32 PM Advance Directive(s) 08/11/2016 2:31 PM Documents on File Type Date 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 Advance Directive(s) 08/17/2019 7:16 PM Advance Directive(s) 08/14/2019 9:32 AM Advance Directive(s) 07/23/2019 12:21 PM Advance Directive(s) 01/05/2019 9:49 AM Advance Directive(s) 06/12/2018 10:01 AM Advance Directive(s) 08/24/2016 10:32 PM Advance Directive(s) 08/11/2016 2:31 PM Advance Directive Response Recorded Date/ Time Advance Directives No July 12:38am Living Will No March 02, 2019 12:12pm Power of Observer Electrical Prospecting No March 02 12:12pm Advance Directive Response Recorded Date/ Time Advance Directives No July 12:38am Advance Directive Response Recorded Date/ Time Advance Directives No July 1:38am Hospital Course Note Hospitalist Discharge Karen León : 1965 Admit date: 10/28/2020 Discharge date: 11/04/2020 Admitting Physician: Farrukh Diaz MD Primary Care Physician: No primary care provider on file. Visit Status: Admission Code Status: Full Code Discharge Diagnoses: 1. Acute hypoxic respiratory failure CTA neg for PE, pos for BL GGO 2. COVID19 Pneumonia 3. CKD4 with DONNA improved 4. Sinus Tachycardia 5. Hx Rey's granulomatosis / Polyangitis 6. Hyponatremia/hypokalemia 7. Elevated transaminitis - due to Covid likely 8. Arthritis 9. Bipolar1 disorder / Schizoaffective / Schizophrenia 10. Hx of TBI / seizure disorer 11. GERD 12. HTN 13. HLP Additional diagnosis evaluated and treated during the admission: Patient Active Problem List Diagnosis Code ? Pneumonia due to COVID-19 virus U07.1, J12.89 Hospital Course: 55 y.o. male with past medical history below who presents with shortness of breath and hypoxia from [facility]. He had a positive COVID19 test (more content not included)... Discharge Instructions * Discharge Instr - DONALDO* Farrukh Diaz MD - 10/31/2020 12:24 PM EST Continuity of Care Form Patient Name: Reggie León : 1965 Admit date: 10/28/2020 Discharge date: 11/04/20 Code Status Order: Full Code Advance Directives: Advance Care Flowsheet Documentation Date/Time Healthcare Directive Type of Healthcare Directive Copy in Chart Healthcare Agent Appointed Healthcare Agent's Name Healthcare Agent's Phone Number 10/28/202038 No, patient does not have an advance directive for healthcare treatment -- -- -- 10/28/20 0000 -- -- -- Aminah León [phone] Admitting Physician: Farrukh Diaz MD PCP: No primary care provider on file. Discharging Nurse: [facility] Unit/Room#: 325/0377 Discharging Unit Phone Number: [phone] Emergency Contact: No emergency contact information on file. Past Surgical History: History reviewed. No pertinent surgical history. Immunization History: There is no immunization history on file for this patient. Active Problems: Patient Active Problem List Diagnosis Code Pneumonia due to COVID-19 virus U07.1, J12.89 Isolation/Infection: Isolation Contact and Droplet Patient Infection Status Infection Onset Added Last Indicated Last Indicated By Review Planned Expiration Resolved Resolved By COVID-19 10/29/20 10/29/20 Shirley Casillas RN 11/05/20 11/12/20 10/14/2020 Documentation in [place] [facility] Reporting System of positive COVID - admitted 10/28/2020 symptomatic. Resolved COVID-19 Rule Out 10/28/20 10/28/20 10/28/20 Respiratory Panel, Molecular, with COVID-19 (Restricted: peds pts or suitable admitted adults) (Ordered) 10/29/20 aJelyn Murphy RN Nurse Assessment: Last Vital Signs: BP 131/80 Pulse 85 Temp 97.1 F (36.2 C) (Temporal) Resp 18 Wt 265 lb 3.2 oz (120.3 kg) SpO2 94% Last documented pain score (0-10 scale): Pain Level: 0 Last Weight: Wt Readings from Last 1 Encounters: 10/29/20 265 lb 3.2 oz (120.3 kg) Mental Status: oriented, alert and hx TBI IV Access: - None Nursing Mobility/ADLs: Walking Independent Transfer Independent Bathing Assisted Dressing Assisted Toileting Independent Feeding Independent Director Of Patient Safety Assisted Med Delivery whole Wound Care Documentation and Therapy: Elimination: Continence: Bowel: Yes Bladder: Yes Urinary Catheter: None Colostomy/Ileostomy/Ileal Conduit: No Date of Last BM: 11/04/20 No intake or output data in the 24 hours ending 10/31/20 1223 No intake/output data recorded. Safety Concerns: None Impairments/Disabilities: None Nutrition Therapy: Current Nutrition Therapy: - Oral Diet: General Routes of Feeding: Oral Liquids: Thin Liquids Daily Fluid Restriction: no Last Modified Barium Swallow with Video (Video Swallowing Test): not done Treatments at the Time of Hospital Discharge: Respiratory Treatments: PRN Oxygen Therapy: is not on home oxygen therapy. Ventilator: - No ventilator support Rehab Therapies: Physical Therapy and Occupational Therapy Weight Bearing Status/Restrictions: No weight bearing restirctions Other Medical Equipment (for information only, NOT a DME order): hospital bed Other Treatments: NA Patient's personal belongings (please select all that are sent with patient): Glasses, Dentures upper and lower RN SIGNATURE: CASE MANAGEMENT/SOCIAL WORK SECTION Inpatient Status Date: Readmission Risk Assessment Score: Readmission Risk Risk of Unplanned Readmission: 20 [facility]charging to Facility/ [facility] Address: [address] [facility] [address] Dialysis Facility (if applicable) Name: Address: Dialysis Schedule: Phone: Fax: Diesel Service Journeyman/Workflow Developer signature: at12:24 PM EST PHYSICIAN SECTION Prognosis: Good Condition at Discharge: Stable Rehab Potential (if transferring to Rehab): Good Recommended Labs or Other Treatments After Discharge: Physician Certification: I certify the above information and transfer of Reggie León is necessary for the continuing treatment of the diagnosis listed and that he requires Intermediate/Mental Retardation/Developmental Disabilities Care for greater 30 days. Update Admission H&P: No change in H&P PHYSICIAN SIGNATURE: documented in this encounter History of Present Illness * Joy Sepulveda RN - 11/04/2020 3:42 PM EST Report given to Yesenia at [facility]. * Amaris Ibrahim RCP - 11/04/2020 12:15 PM EST [facility] Respiratory Care Department Progress Note SpO2 at rest on RA = 94 HR at rest = 83 SpO2 with ambulation on RA = 90 Peak HR = 111 Distance Walked = 50 Recovery SpO2 with ambulation = 93 Recovery HR = 105 Recovery SpO2 with 0 lpm with ambulation (if needed) = 93 Qualify for home O2 Y/N = No Patient mobile at home Y/N = Yes * Jeanie Samuel - 11/04/2020 9:24 AM EST Nutrition rescreen completed. Patient referred to the Dietitian. * Piyush Daniel MD - 11/03/2020 6:05 PM EST [facility] Progress Note Subjective/ 55 y.o. year old male who we are seeing in consultation for DONNA on CKD, h/o vasculitis. Interval Hx: Breathing stable naeon ROS negative except above All his labs, chart, data and interval events have keyon reviewed Objective/ Vitals: 11/03/20 0743 11/03/20 1127 11/03/20 1253 11/03/20 1601 BP: 113/79 122/62 123/85 Pulse: 96 (!) 43 50 85 Resp: 18 18 18 Temp: 96.1 F (35.6 C) 96.2 F (35.7 C) 96.4 F (35.8 C) TempSrc: Temporal Temporal Temporal Temporal SpO2: 93% 94% 93% 92% Weight: 24HR INTAKE/OUTPUT: Intake/Output Summary (Last 24 hours) at 11/03/2020 1805 Last data filed at 11/03/2020 0852 Gross per 24 hour Intake 10 ml Output Net 10 ml General: NAD, Comfortable appearing, cooperative to history and physical exam. Head: AT NC Neck: Supple, no jvd Chest: B/L clear, no crackles, no accessory muscles usage. CV: RRR, no murmurs or rubs Abdomen: NT, ND, soft Extremities: No peripheral edema, no tremor Neurological: Moving all four extremities, no focal neurological deficit Psychiatric: Normal insight and judgement, good recall Current Facility-Administered Medications Medication Dose Route Frequency Provider Last Rate Last Admin metoprolol (LOPRESSOR) injection 5 mg 5 mg Intravenous Q6H PRN Farrukh Diaz MD metoprolol succinate (TOPROL XL) extended release tablet 75 mg 75 mg Oral Daily Farrukh Diaz MD 75 mg at 11/03/20 0852 ipratropium-albuterol (DUONEB) nebulizer solution 1 ampule 1 ampule Inhalation Q4H PRN Farrukh Diaz MD furosemide (LASIX) tablet 60 mg 60 mg Oral Daily Bakari Hdz MD 60 mg at 11/03/20 0853 sulfamethoxazole-trimethoprim (BACTRIM DS;SEPTRA DS) 800-160 MG per tablet 1 tablet 1 tablet Oral Once per day on Tue Piyush Daniel MD 1 tablet at 11/03/20 0854 heparin (porcine) injection 5,000 Units 5,000 Units Subcutaneous 3 times per day Farrukh Diaz MD5,000 Units at 11/03/20 1723 sodium chloride flush 0.9 % injection 10 mL 10 mL Intravenous 2 times per day Farrukh Diaz MD 10mL at 11/03/20 0854 sodium chloride flush 0.9 % injection 10 mL 10 mL Intravenous PRN Farrukh Diaz MD promethazine (PHENERGAN) tablet 12.5 mg 12.5 mg Oral Q6H PRN Farrukh Diaz MD Or ondansetron (ZOFRAN) injection 4 mg 4 mg Intravenous Q6H PRN Farrukh Diaz MD polyethylene glycol (GLYCOLAX) packet 17 g 17 g Oral Daily PRN Farrukh Diaz MD acetaminophen (TYLENOL) tablet 650 mg 650 mg Oral Q6H PRN Farrukh Diaz MD Or acetaminophen (TYLENOL) suppository 650 mg 650 mg Rectal Q6H PRN Farrukh Diaz MD dexamethasone (DECADRON) tablet 6 mg 6 mg Oral Daily Farrukh Diaz MD 6 mg at 11/03/20 0853 guaiFENesin-dextromethorphan (ROBITUSSIN DM) 100-10 MG/5ML syrup 5 mL 5 mL Oral Q4H PRN Farrukh Diaz MD 5 mL at 10/29/20 0702 Vitamin D (CHOLECALCIFEROL) tablet 2,000 Units 2,000 Units Oral Daily Farrukh Diaz MD 2,000 Units at 11/03/20 0853 0.9 % sodium chloride bolus 30 mL Intravenous PRN Farrukh Diaz MD atorvastatin (LIPITOR) tablet 20 mg 20 mg Oral Daily Farrukh Diaz MD 20 mg at 11/03/20 0853 cyclobenzaprine (FLEXERIL) tablet 10 mg 10 mg Oral TID PRN Farrukh Diaz MD 10 mg at 10/28/202049 famotidine (PEPCID) tablet 40 mg 40 mg Oral Daily Farrukh Diaz MD 40 mg at 11/03/20 0859 hydroxychloroquine (PLAQUENIL) tablet 100 mg 100 mg Oral Daily Farrukh Diaz MD 100 mg at 11/03/20 0854 lithium capsule 300 mg 300 mg Oral Nightly Farrukh Diaz MD 300 mg at 11/02/202009 cetirizine (ZYRTEC) tablet 5 mg 5 mg Oral Daily Farrukh Diaz MD 5 mg at 11/03/20 0853 melatonin tablet 3 mg 3 mg Oral Nightly Farrukh Diaz MD 3 mg at 11/02/202009 omega-3 acid ethyl esters (LOVAZA) capsule 1 capsule 1 capsule Oral Daily Farrukh Diaz MD 1 capsule at 11/03/20 0852 pantoprazole (PROTONIX) tablet 40 mg 40 mg Oral QAM AC Farrukh Diaz MD 40 mg at 11/03/20 0853 paliperidone (INVEGA) extended release tablet 6 mg 6 mg Oral QAM Farrukh Diaz MD 6 mg at 11/03/20 0854 QUEtiapine (SEROQUEL XR) extended release tablet 600 mg 600 mg Oral Nightly Farrukh Diaz MD 600 mg at 11/02/202009 Data/ Recent Labs 11/02/20 0317 11/03/20 0236 WBC 13.0* 15.6* HGB 13.2 12.8* HCT 39.5* 39.0* MCV 87.8 87.6 PLT 340 332 Recent Labs 11/01/20 0235 11/02/20 0317 11/03/20 0236 NA 137 137 134* K 4.2 4.3 3.8 CL 113* 110* 107 CO2 18* 18* 21* GLUCOSE 134* 135* 139* BUN 32* 35* 43* CREATININE 1.77* 1.89* 2.08* Assessment/ 1. DONNA 2/2 ATN (sepsis, volume depletion) 2. CKD IV 3. C ANCA vasculitis 4. Immunosuppression 5. COVID 19+ pneumonia. Plan: Cr fluctuating around baseline S/p contrast exposure 10/30, crea staying stable so far, trend C/w lasix. Additional prn lasix okay from my perspective for resp distress. Continue to hold Losartan. No changes needed to immunosuppressive therapy. May need to institute the antibiotic 3x/week the one he was on outpatient. Until we know, will place on bactrim 3x/week ANCA vasculitis seems to be in remission from renal perspective. No urgent MANUFACTURING PLANNER indications. Will follow. [facility] * Farrukh Diaz MD - 11/03/2020 1:09 PM EST Hospitalist Progress Note 11/03/2020 1:09 PM [phone]: Please page [place] [phone] for patient care issues. [phone]: Please page [facility] night Hospitalist for any issues. Subjective: Admit Date: 10/28/2020 PCP: No primary care provider on file. Interval History: No overnight issues. Feeling SOB. oN 5L NCcstill this am. Has been tachycardic on telemetry DIET GENERAL; Patient Vitals for the past 96 hrs (Last 3 readings): Weight 11/02/20 2104 252 lb 6.4 oz (114.5 kg) 24HR INTAKE/OUTPUT: Intake/Output Summary (Last 24 hours) at 11/03/2020 1309 Last data filed at 11/03/2020 0852 Gross per 24 hour Intake 10 ml Output Net 10 ml Medications: metoprolol succinate 75 mg Oral Daily furosemide 60 mg Oral Daily sulfamethoxazole-trimethoprim 1 tablet Oral Once per day on Tue heparin (porcine) 5,000 Units Subcutaneous 3 times per day sodium chloride flush 10 mL Intravenous 2 times per day dexamethasone 6 mg Oral Daily Vitamin D 2,000 Units Oral Daily atorvastatin 20 mg Oral Daily famotidine 40 mg Oral Daily hydroxychloroquine 100 mg Oral Daily lithium 300 mg Oral Nightly cetirizine 5 mg Oral Daily melatonin 3 mg Oral Nightly omega-3 acid ethyl esters 1 capsule Oral Daily pantoprazole 40 mg Oral QAM AC paliperidone 6 mg Oral QAM QUEtiapine 600 mg Oral Nightly Objective: Vitals: BP 122/62 Pulse 50 Temp 96.2 F (35.7 C) (Temporal) Resp 18 Wt 252 lb 6.4 oz (114.5 kg) SpO2 93% Pulse Ox: SpO2 Av.2 % Min: 93 % Max: 96 % Supplemental O2: O2 Flow Rate (L/min): 5 L/min General appearance: No apparent distress, appears stated age and cooperative with exam HEENT: Normal cephalic, atraumatic without obvious deformity. Extra ocular muscles intact. Conjunctivae/corneas clear. Neck: Supple, with full range of motion. Respiratory: Normal respiratory effort. Clear to auscultation, bilaterally without Rales/Wheezes/Rhonchi. Cardiovascular: Tachycardic,regular with normal S1/S2 without murmurs, rubs or gallops. Abdomen: Soft, non-tender, non-distended with normal bowel sounds. No rebound or guarding. Musculoskeletal: No clubbing, cyanosis or edema bilaterally. Full range of motion without deformity. Skin: Skin color, texture, turgor normal. No rashes or lesions. LABS: CBC: Recent Labs 11/02/2031611/03/20235 WBC 13.0* 15.6* RBC 4.49 4.45 HGB 13.2 12.8* HCT 39.5* 39.0* MCV 87.8 87.6 RDW 14.2 14.3 PLT 340 332 BMP: Recent Labs 11/01/2023411/02/2031611/03/20235 NA 137 137 134* K 4.2 4.3 3.8 CL 113* 110* 107 CO2 18* 18* 21* BUN 32* 35* 43* CREATININE 1.77* 1.89* 2.08* GLUCOSE 134* 135* 139* CALCIUM 8.7 8.8 9.0 ANIONGAP 7 9 5 LIVER PROFILE: Recent Labs 11/01/2023411/02/2031611/03/20235 AST 135* 104* 63* ALT 173* 198* 175* BILITOT 0.5 0.7 0.7 ALKPHOS 77 85 83 LABALBU 3.1* 3.3* 3.4* PROT 5.6* 6.1* 5.9* PT/INR: No results for input(s): PROTIME, INR in the last 72 hours. CARDIAC ENZYMES: No results for input(s): TROPONINI in the last 72 hours. Procalcitonin: Lab Results Component Value Date PROCAL 0.31 10/29/2020 Glucose: No results for input(s): POCGLU in the last 72 hours. COVID-19 PCR: No results for input(s): COVID19 in the last 72 hours. Assessment / Plan 1. Acute hypoxic respiratory failure CTA neg for PE, pos for BL GGO 2. COVID19 Pneumonia 3. CKD4 with DONNA improved 4. Sinus Tachycardia 5. Hx Rey's granulomatosis / Polyangitis 6. Hyponatremia/hypokalemia 7. Elevated transaminitis - due to Covid likely 8. Arthritis 9. Bipolar1 disorder / Schizoaffective / Schizophrenia 10. Hx of TBI / seizure disorer 11. GERD 12. HTN 13. HLP - Decadron, Remdesivir - last dose 11/01/2020, Bronchodilators prn - NC O2 to keep oxygen sat >90% - wean as tolerated - Nephrology input appreciated -am labs, replace lytes prn -increase activity -DVT prophylaxis: [] Lovenox [x] Heparin [] SCDs [x] Encourage ambulation [] Already on Anticoagulation Advance Directive: Full Code Discharge planning: TBD Farrukh Diaz MD Division of Hospitalist Medicine Inpatient Medical Services PAGER: [phone] * Piyush Daniel MD - 11/02/2020 10:00 PM EST [facility] Progress Note Subjective/ 55 y.o. year old male who we are seeing in consultation for DONNA on CKD, h/o vasculitis. Interval Hx: Breathing stable naeon ROS negative except above All his labs, chart, data and interval events have keyon reviewed Objective/ Vitals: 11/02/20 0734 11/02/20 1203 11/02/20 1504 11/02/20 2104 BP: 121/88 (!) 112/91 134/78 127/79 Pulse: 108 110 101 93 Resp: Temp: 96.4 F (35.8 C) 96.8 F (36 C) 96.6 F (35.9 C) 96.6 F (35.9 C) TempSrc: Temporal Temporal Temporal Temporal SpO2: 96% 95% 94% 96% Weight: 252 lb 6.4 oz (114.5 kg) 24HR INTAKE/OUTPUT: No intake or output data in the 24 hours ending 11/02/20 2200 General: NAD, Comfortable appearing, cooperative to history and physical exam. Head: AT NC Neck: Supple, no jvd Chest: B/L clear, no crackles, no accessory muscles usage. CV: RRR, no murmurs or rubs Abdomen: NT, ND, soft Extremities: No peripheral edema, no tremor Neurological: Moving all four extremities, no focal neurological deficit Psychiatric: Normal insight and judgement, good recall Current Facility-Administered Medications Medication Dose Route Frequency Provider Last Rate Last Admin metoprolol (LOPRESSOR) injection 5 mg 5 mg Intravenous Q6H PRN Farrukh Diaz MD [START ON 11/03/2020] metoprolol succinate (TOPROL XL) extended release tablet 75 mg 75 mg Oral Daily Farrukh Diaz MD ipratropium-albuterol (DUONEB) nebulizer solution 1 ampule 1 ampule Inhalation Q4H PRN Farrukh Diaz MD furosemide (LASIX) tablet 60 mg 60 mg Oral Daily Bakari Hdz MD 60 mg at 11/02/20 0810 sulfamethoxazole-trimethoprim (BACTRIM DS;SEPTRA DS) 800-160 MG per tablet 1 tablet 1 tablet Oral Once per day on Tue Piyush Daniel MD 1 tablet at 10/31/20 0953 heparin (porcine) injection 5,000 Units 5,000 Units Subcutaneous 3 times per day Farrukh Diaz MD5,000 Units at 11/02/20 1708 sodium chloride flush 0.9 % injection 10 mL 10 mL Intravenous 2 times per day Farrukh Diaz MD 10mL at 11/02/202010 sodium chloride flush 0.9 % injection 10 mL 10 mL Intravenous PRN Farrukh Diaz MD promethazine (PHENERGAN) tablet 12.5 mg 12.5 mg Oral Q6H PRN Farrukh Diaz MD Or ondansetron (ZOFRAN) injection 4 mg 4 mg Intravenous Q6H PRN Farrukh Diaz MD polyethylene glycol (GLYCOLAX) packet 17 g 17 g Oral Daily PRN Farrukh Diaz MD acetaminophen (TYLENOL) tablet 650 mg 650 mg Oral Q6H PRN Farrukh Diaz MD Or acetaminophen (TYLENOL) suppository 650 mg 650 mg Rectal Q6H PRN Farrukh Diaz MD dexamethasone (DECADRON) tablet 6 mg 6 mg Oral Daily Farrukh Diaz MD 6 mg at 11/02/20 0810 guaiFENesin-dextromethorphan (ROBITUSSIN DM) 100-10 MG/5ML syrup 5 mL 5 mL Oral Q4H PRN Farrukh Diaz MD 5 mL at 10/29/20 0702 Vitamin D (CHOLECALCIFEROL) tablet 2,000 Units 2,000 Units Oral Daily Farrukh Diaz MD 2,000 Units at 11/02/20 0809 0.9 % sodium chloride bolus 30 mL Intravenous PRN Farrukh Diaz MD atorvastatin (LIPITOR) tablet 20 mg 20 mg Oral Daily Farrukh Diaz MD 20 mg at 11/02/20 0809 cyclobenzaprine (FLEXERIL) tablet 10 mg 10 mg Oral TID PRN Farrukh Diaz MD 10 mg at 10/28/202049 famotidine (PEPCID) tablet 40 mg 40 mg Oral Daily Farrukh Diaz MD 40 mg at 11/02/20 08 hydroxychloroquine (PLAQUENIL) tablet 100 mg 100 mg Oral Daily Farrukh Diaz MD 100 mg at 11/02/20 08 lithium capsule 300 mg 300 mg Oral Nightly Farrukh Diaz MD 300 mg at 11/02/202009 cetirizine (ZYRTEC) tablet 5 mg 5 mg Oral Daily Farrukh Diaz MD 5 mg at 11/02/20 0810 melatonin tablet 3 mg 3 mg Oral Nightly Farrukh Diaz MD 3 mg at 11/02/202009 omega-3 acid ethyl esters (LOVAZA) capsule 1 capsule 1 capsule Oral Daily Farrukh Diaz MD 1 capsule at 11/02/20 08 pantoprazole (PROTONIX) tablet 40 mg 40 mg Oral QAM AC Farrukh Diaz MD 40 mg at 11/02/20 0810 paliperidone (INVEGA) extended release tablet 6 mg 6 mg Oral QAM Farrukh Diaz MD 6 mg at 11/02/20 0810 QUEtiapine (SEROQUEL XR) extended release tablet 600 mg 600 mg Oral Nightly Farrukh Diaz MD 600 mg at 11/02/202009 Data/ Recent Labs 10/31/2022011/02/20 0317 WBC 9.5 13.0* HGB 12.0* 13.2 HCT 35.7* 39.5* MCV 86.3 87.8 PLT 294 340 Recent Labs 10/31/2022011/01/2023411/02/20 0317 NA 136 137 137 K 3.8 4.2 4.3 CL 112* 113* 110* CO2 17* 18* 18* GLUCOSE 139* 134* 135* BUN 30* 32* 35* CREATININE 1.84* 1.77* 1.89* Assessment/ 1. DONNA 2/2 ATN (sepsis, volume depletion) 2. CKD IV 3. C ANCA vasculitis 4. Immunosuppression 5. COVID 19+ pneumonia. Plan: Cr stable around baseline S/p contrast exposure 10/30, crea staying stable so far, trend C/w lasix. Additional prn lasix okay from my perspective for resp distress. Continue to hold Losartan. No changes needed to immunosuppressive therapy. May need to institute the antibiotic 3x/week the one he was on outpatient. 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 No urgent [employer] indications. Will follow. [facility] * Farrukh Diaz MD - 11/02/2020 3:16 PM EST Hospitalist Progress Note 11/02/2020 3:16 PM [phone]: Please page me [phone] for patient care issues. [phone]: Please page [facility] night Hospitalist for any issues. Subjective: Admit Date: 10/28/2020 PCP: No primary care provider on file. Interval History: No overnight issues. Feeling SOB. oN 5L NC this am. Has been tachycardic on telemetry DIET GENERAL; No data found. 24HR INTAKE/OUTPUT: No intake or output data in the 24 hours ending 11/02/20 1516 Medications: [START ON 11/03/2020] metoprolol succinate 75 mg Oral Daily furosemide 60 mg Oral Daily sulfamethoxazole-trimethoprim 1 tablet Oral Once per day on Tue heparin (porcine) 5,000 Units Subcutaneous 3 times per day sodium chloride flush 10 mL Intravenous 2 times per day dexamethasone 6 mg Oral Daily Vitamin D 2,000 Units Oral Daily atorvastatin 20 mg Oral Daily famotidine 40 mg Oral Daily hydroxychloroquine 100 mg Oral Daily lithium 300 mg Oral Nightly cetirizine 5 mg Oral Daily melatonin 3 mg Oral Nightly omega-3 acid ethyl esters 1 capsule Oral Daily pantoprazole 40 mg Oral QAM AC paliperidone 6 mg Oral QAM QUEtiapine 600 mg Oral Nightly Objective: Vitals: BP 134/78 Pulse 101 Temp 96.6 F (35.9 C) (Temporal) Resp 20 Wt 265 lb 3.2 oz (120.3kg) SpO2 94% Pulse Ox: SpO2 Av.3 % Min: 93 % Max: 96 % Supplemental O2: O2 Flow Rate (L/min): 6 L/min General appearance: No apparent distress, appears stated age and cooperative with exam HEENT: Normal cephalic, atraumatic without obvious deformity. Extra ocular muscles intact. Conjunctivae/corneas clear. Neck: Supple, with full range of motion. Respiratory: Normal respiratory effort. Clear to auscultation, bilaterally without Rales/Wheezes/Rhonchi. Cardiovascular: Tachycardic,regular with normal S1/S2 without murmurs, rubs or gallops. Abdomen: Soft, non-tender, non-distended with normal bowel sounds. No rebound or guarding. Musculoskeletal: No clubbing, cyanosis or edema bilaterally. Full range of motion without deformity. Skin: Skin color, texture, turgor normal. No rashes or lesions. LABS: CBC: Recent Labs 10/31/20 0221 11/02/20 0317 WBC 9.5 13.0* RBC 4.14* 4.49 HGB 12.0* 13.2 HCT 35.7* 39.5* MCV 86.3 87.8 RDW 14.0 14.2 PLT 294 340 BMP: Recent Labs 10/31/2022011/01/205 11/02/20316 NA 136 137 137 K 3.8 4.2 4.3 CL 112* 113* 110* CO2 17* 18* 18* BUN 30* 32* 35* CREATININE 1.84* 1.77* 1.89* GLUCOSE 139* 134* 135* CALCIUM 8.7 8.7 8.8 ANIONGAP 7 7 9 LIVER PROFILE: Recent Labs 10/31/2022011/01/2023411/02/20316 AST 67* 135* 104* ALT 79* 173* 198* BILITOT 0.4 0.5 0.7 ALKPHOS 69 77 85 LABALBU 2.8* 3.1* 3.3* PROT 5.3* 5.6* 6.1* PT/INR: No results for input(s): PROTIME, INR in the last 72 hours. CARDIAC ENZYMES: No results for input(s): TROPONINI in the last 72 hours. Procalcitonin: Lab Results Component Value Date PROCAL 0.31 10/29/2020 Glucose: No results for input(s): POCGLU in the last 72 hours. COVID-19 PCR: No results for input(s): COVID19 in the last 72 hours. Assessment / Plan 1. Acute hypoxic respiratory failure CTA neg for PE, pos for BL GGO 2. COVID19 Pneumonia 3. CKD4 with DONNA improved 4. Sinus Tachycardia 5. Hx Rey's granulomatosis / Polyangitis 6. Hyponatremia/hypokalemia 7. Elevated transaminitis - due to Covid likely 8. Arthritis 9. Bipolar1 disorder / Schizoaffective / Schizophrenia 10. Hx of TBI / seizure disorer 11. GERD 12. HTN 13. HLP - Decadron, Remdesivir - last dose 11/01/2020, Bronchodilators prn - NC O2 to keep oxygen sat >90% - wean as tolerated - Increase metoprolol, monitor BP/HR - Nephrology input appreciated -am labs, replace lytes prn -increase activity -DVT prophylaxis: [] Lovenox [x] Heparin [] SCDs [x] Encourage ambulation [] Already on Anticoagulation Advance Directive: Full Code Discharge planning: TBD Farrukh Diaz MD Division of Hospitalist Medicine Inpatient Medical Services PAGER: [phone] * Piyush Daniel MD - 11/01/2020 8:04 PM EST [facility] Nephrology Progress Note Subjective/ 55 y.o. year old male who we are seeing in consultation for DONNA on CKD, h/o vasculitis. Interval Hx: crea better despite contrast exposure on 10/30 with CTA noted Breathing stable naeon ROS negative except above All his labs, chart, data and interval events have keyon reviewed Objective/ Vitals: 11/01/20 0801 11/01/20 0956 11/01/20 1208 11/01/20 1532 BP: 127/81 118/86 139/81 Pulse: 85 115 68 Resp: Temp: 96 F (35.6 C) 96.2 F (35.7 C) 96.5 F (35.8 C) TempSrc: Temporal Temporal Temporal SpO2: 91% 97% 93% 93% Weight: 24HR INTAKE/OUTPUT: No intake or output data in the 24 hours ending 11/01/202003 General: NAD, Comfortable appearing, cooperative to history and physical exam. Head: AT NC Neck: Supple, no jvd Chest: B/L clear, no crackles, no accessory muscles usage. CV: RRR, no murmurs or rubs Abdomen: NT, ND, soft Extremities: No peripheral edema, no tremor Neurological: Moving all four extremities, no focal neurological deficit Psychiatric: Normal insight and judgement, good recall Current Facility-Administered Medications Medication Dose Route Frequency Provider Last Rate Last Admin ipratropium-albuterol (DUONEB) nebulizer solution 1 ampule 1 ampule Inhalation Q4H PRN Farrukh Diaz MD furosemide (LASIX) tablet 60 mg 60 mg Oral Daily Bakari Hdz MD 60 mg at 11/01/20 0830 sulfamethoxazole-trimethoprim (BACTRIM DS;SEPTRA DS) 800-160 MG per tablet 1 tablet 1 tablet Oral Once per day on Tue Piyush Daniel MD 1 tablet at 10/31/20 0953 heparin (porcine) injection 5,000 Units 5,000 Units Subcutaneous 3 times per day Farrukh Diaz MD5,000 Units at 11/01/20 1741 sodium chloride flush 0.9 % injection 10 mL 10 mL Intravenous 2 times per day Farrukh Diaz MD 10mL at 11/01/20 0831 sodium chloride flush 0.9 % injection 10 mL 10 mL Intravenous PRN Farrukh Diaz MD promethazine (PHENERGAN) tablet 12.5 mg 12.5 mg Oral Q6H PRN Farrukh Diaz MD Or ondansetron (ZOFRAN) injection 4 mg 4 mg Intravenous Q6H PRN Farrukh Diaz MD polyethylene glycol (GLYCOLAX) packet 17 g 17 g Oral Daily PRN Farrukh Diaz MD acetaminophen (TYLENOL) tablet 650 mg 650 mg Oral Q6H PRN Farrukh Diaz MD Or acetaminophen (TYLENOL) suppository 650 mg 650 mg Rectal Q6H PRN Farrukh Diaz MD dexamethasone (DECADRON) tablet 6 mg 6 mg Oral Daily Farrukh Diaz MD 6 mg at 11/01/20 0829 guaiFENesin-dextromethorphan (ROBITUSSIN DM) 100-10 MG/5ML syrup 5 mL 5 mL Oral Q4H PRN Farrukh Diaz MD 5 mL at 10/29/20 0702 Vitamin D (CHOLECALCIFEROL) tablet 2,000 Units 2,000 Units Oral Daily aFrrukh Diaz MD 2,000 Units at 11/01/20 0828 remdesivir 100 mg in sodium chloride 0.9 % 250 mL IVPB 100 mg Intravenous Q24H Farrukh Diaz MD Stopped at 10/31/20 2313 0.9 % sodium chloride bolus 30 mL Intravenous PRN Farrukh Diaz MD atorvastatin (LIPITOR) tablet 20 mg 20 mg Oral Daily Farrukh Diaz MD 20 mg at 11/01/20 0829 cyclobenzaprine (FLEXERIL) tablet 10 mg 10 mg Oral TID PRN Farrukh Diaz MD 10 mg at 10/28/20 205 famotidine (PEPCID) tablet 40 mg 40 mg Oral Daily Farrukh Diaz MD 40 mg at 11/01/20 0830 hydroxychloroquine (PLAQUENIL) tablet 100 mg 100 mg Oral Daily Farrukh Diaz MD 100 mg at 11/01/20828 lithium capsule 300 mg 300 mg Oral Nightly Farrukh Diaz MD 300 mg at 10/31/202122 cetirizine (ZYRTEC) tablet 5 mg 5 mg Oral Daily Farrukh Diaz MD 5 mg at 11/01/20828 melatonin tablet 3 mg 3 mg Oral Nightly Farrukh Diaz MD 3 mg at 10/31/202122 metoprolol succinate (TOPROL XL) extended release tablet 50 mg 50 mg Oral Daily Farrukh Diaz MD 50 mg at 11/01/20829 omega-3 acid ethyl esters (LOVAZA) capsule 1 capsule 1 capsule Oral Daily Farrukh Diaz MD 1 capsule at 11/01/20827 pantoprazole (PROTONIX) tablet 40 mg 40 mg Oral QAM AC Farrukh Diaz MD 40 mg at 11/01/20829 paliperidone (INVEGA) extended release tablet 6 mg 6 mg Oral QAM Farrukh Diaz MD 6 mg at 11/01/20828 QUEtiapine (SEROQUEL XR) extended release tablet 600 mg 600 mg Oral Nightly Farrukh Diaz MD 600 mg at 10/31/202122 Data/ Recent Labs 10/31/20 0221 WBC 9.5 HGB 12.0* HCT 35.7* MCV 86.3 PLT 294 Recent Labs 10/30/20 0116 10/31/20 0221 11/01/20 0235 NA 140 136 137 K 4.0 3.8 4.2 CL 114* 112* 113* CO2 18* 17* 18* GLUCOSE 142* 139* 134* BUN 30* 30* 32* CREATININE 2.01* 1.84* 1.77* Assessment/ 1. DONNA 2/2 ATN (sepsis, volume depletion) 2. CKD IV 3. C ANCA vasculitis 4. Immunosuppression 5. COVID 19+ pneumonia. Plan: Patient is adequately volume resuscitated at this point. No more ivf needed S/p contrast exposure 10/30, crea staying stable so far, trend C/w lasix. Additional prn lasix okay from my perspective for resp distress. Continue to hold Losartan. No changes needed to immunosuppressive therapy. May need to institute the antibiotic 3x/week the one he was on outpatient. 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 No urgent [employer] indications. Will follow. [facility] * Farrukh Diaz MD - 11/01/2020 3:07 PM EST Hospitalist Progress Note 11/01/2020 3:08 PM [phone]: Please page [place] [phone] for patient care issues. [phone]: Please page [facility] night Hospitalist for any issues. Subjective: Admit Date: 10/28/2020 PCP: No primary care provider on file. Interval History: No overnight issues. Feeling SOB. oN 6L NC this am. DIET GENERAL; Patient Vitals for the past 96 hrs (Last 3 readings): Weight 10/29/20 1055 265 lb 3.2 oz (120.3 kg) 24HR INTAKE/OUTPUT: No intake or output data in the 24 hours ending 11/01/20 1508 Medications: furosemide 60 mg Oral Daily sulfamethoxazole-trimethoprim 1 tablet Oral Once per day on Tue heparin (porcine) 5,000 Units Subcutaneous 3 times per day sodium chloride flush 10 mL Intravenous 2 times per day dexamethasone 6 mg Oral Daily Vitamin D 2,000 Units Oral Daily remdesivir IVPB 100 mg Intravenous Q24H atorvastatin 20 mg Oral Daily famotidine 40 mg Oral Daily hydroxychloroquine 100 mg Oral Daily lithium 300 mg Oral Nightly cetirizine 5 mg Oral Daily melatonin 3 mg Oral Nightly metoprolol succinate 50 mg Oral Daily omega-3 acid ethyl esters 1 capsule Oral Daily pantoprazole 40 mg Oral QAM AC paliperidone 6 mg Oral QAM QUEtiapine 600 mg Oral Nightly Objective: Vitals: BP 118/86 Pulse 115 Temp 96.2 F (35.7 C) (Temporal) Resp 20 Wt 265 lb 3.2 oz (120.3kg) SpO2 93% Pulse Ox: SpO2 Av.4 % Min: 91 % Max: 97 % Supplemental O2: O2 Flow Rate (L/min): 5 L/min General appearance: No apparent distress, appears stated age and cooperative with exam HEENT: Normal cephalic, atraumatic without obvious deformity. Extra ocular muscles intact. Conjunctivae/corneas clear. Neck: Supple, with full range of motion. Respiratory: Normal respiratory effort. Clear to auscultation, bilaterally without Rales/Wheezes/Rhonchi. Cardiovascular: Regular rate and rhythm with normal S1/S2 without murmurs, rubs or gallops. Abdomen: Soft, non-tender, non-distended with normal bowel sounds. No rebound or guarding. Musculoskeletal: No clubbing, cyanosis or edema bilaterally. Full range of motion without deformity. Skin: Skin color, texture, turgor normal. No rashes or lesions. LABS: CBC: Recent Labs 10/31/20220 WBC 9.5 RBC 4.14* HGB 12.0* HCT 35.7* MCV 86.3 RDW 14.0 PLT 294 BMP: Recent Labs 10/30/20 0116 10/31/2022011/01/20 023 NA 140 136 137 K 4.0 3.8 4.2 CL 114* 112* 113* CO2 18* 17* 18* BUN 30* 30* 32* CREATININE 2.01* 1.84* 1.77* GLUCOSE 142* 139* 134* CALCIUM 8.6 8.7 8.7 ANIONGAP 8 7 7 LIVER PROFILE: Recent Labs 10/30/2011510/31/2022011/01/20 0235 AST 67* 67* 135* ALT 67* 79* 173* BILITOT 0.3 0.4 0.5 ALKPHOS 75 69 77 LABALBU 2.9* 2.8* 3.1* PROT 5.7* 5.3* 5.6* PT/INR: No results for input(s): PROTIME, INR in the last 72 hours. CARDIAC ENZYMES: No results for input(s): TROPONINI in the last 72 hours. Procalcitonin: Lab Results Component Value Date PROCAL 0.31 10/29/2020 Glucose: No results for input(s): POCGLU in the last 72 hours. COVID-19 PCR: No results for input(s): COVID19 in the last 72 hours. Assessment / Plan 1. Acute hypoxic respiratory failure CTA neg for PE, pos for BL GGO 2. COVID19 Pneumonia 3. CKD4 with DONNA 4. Hx Rey's granulomatosis / Polyangitis 5. Hyponatremia/hypokalemia 6. Elevated transaminitis - due to Covid likely 7. Arthritis 8. Bipolar1 disorder / Schizoaffective / Schizophrenia 9. Hx of TBI / seizure disorer 10. GERD 11. HTN 12. HLP - Decadron, Remdesivir - last dose today, Bronchodilators - NC O2 to keep oxygen sat >90% - wean as tolerated - Trend inflammatory markers - Nephrology input appreciated -am labs, replace lytes prn -increase activity -DVT prophylaxis: [] Lovenox [x] Heparin [] SCDs [x] Encourage ambulation [] Already on Anticoagulation Advance Directive: Full Code Discharge planning: TBD Farrukh Diaz MD Division of Hospitalist Medicine Inpatient Medical Services PAGER: [phone] * Mia Noyola RCP - 11/01/2020 12:00 PM EST Patient Evaluation Form The patient is currently receiving qid duoneb Points 0 1 2 3 4 Points Totals Pulmonary Status (-/+) History Smoking history < 20 pack years Smoking history > 20 pack years Pulmonary Disorder (acute or chronic) Severe or Chronic with Exacerbation 3 Surgical Status No Surgery Trach PEG General Surgery Lower Abdominal Thoracic or Upper Abdominal Thoracic with Pulmonary Disorder 0 Chest X-ray Clear None Ordered Chronic Changes CXR results Pending Infiltrates, atelectasis, pleural effusion, or edema Infiltrates in more than one lobe Infiltrate + Atelectasis, &/or pleural effusion 0 Respiratory Pattern Regular, RR = 12-20 Increased, RR = 21-25 LAND, irregular, or RR = 26-30 Decreased FEV1 or RR = 31-35 Severe SOB, used of of accessory muscles, or RR = > 35 0 Mental Status Alert, oriented, cooperative Confused, but follows commands Lethargic or un-able to follow commands Obtunded Comatose 0 Breath Sounds Clear to auscultation Decreased unilaterally or in bases only Decreased bilaterally Crackles or intermittent wheezes Wheezes 1 Cough Strong, spontaneous, & nonproductive Strong, spontaneous, & productive Weak, nonproductive Weak, productive or with wheezes No spontaneous cough or may require suctioning 0 Level of Activity Ambulatory Ambulatory with Assist Non-ambulatroy Paraplegic Quadriplegic 0 Triage 1 > 20 pts Triage 2 16-20 pts Triage 3 11- 15 pts Triage 4 6 - 10 pts Triage 5 0 - 5 pts TOTAL POINTS = 4 Triage Score = 5 Changing Therapy to prn * Farrukh Diaz MD - 10/31/2020 11:32 AM EST Hospitalist Progress Note 11/01/2020 11:33 AM [phone]: Please page [place] [phone] for patient care issues. [phone]: Please page [facility] Hospitalist for any issues. Subjective: Admit Date: 10/28/2020 PCP: No primary care provider on file. Interval History: No overnight issues. Feeling SOB. oN 6L NC this am. DIET GENERAL; Patient Vitals for the past 96 hrs (Last 3 readings): Weight 10/29/20 1055 265 lb 3.2 oz (120.3 kg) 24HR INTAKE/OUTPUT: No intake or output data in the 24 hours ending 11/01/20 1133 Medications: furosemide 60 mg Oral Daily ipratropium-albuterol 1 ampule Inhalation Q4H WA sulfamethoxazole-trimethoprim 1 tablet Oral Once per day on Tue heparin (porcine) 5,000 Units Subcutaneous 3 times per day sodium chloride flush 10 mL Intravenous 2 times per day dexamethasone 6 mg Oral Daily Vitamin D 2,000 Units Oral Daily remdesivir IVPB 100 mg Intravenous Q24H atorvastatin 20 mg Oral Daily famotidine 40 mg Oral Daily hydroxychloroquine 100 mg Oral Daily lithium 300 mg Oral Nightly cetirizine 5 mg Oral Daily melatonin 3 mg Oral Nightly metoprolol succinate 50 mg Oral Daily omega-3 acid ethyl esters 1 capsule Oral Daily pantoprazole 40 mg Oral QAM AC paliperidone 6 mg Oral QAM QUEtiapine 600 mg Oral Nightly Objective: Vitals: BP 127/81 Pulse 85 Temp 96 F (35.6 C) (Temporal) Resp 18 Wt 265 lb 3.2 oz (120.3 kg) SpO2 97% Pulse Ox: SpO2 Av.6 % Min: 91 % Max: 97 % Supplemental O2: O2 Flow Rate (L/min): 5 L/min(weaned from 6) General appearance: No apparent distress, appears stated age and cooperative with exam HEENT: Normal cephalic, atraumatic without obvious deformity. Extra ocular muscles intact. Conjunctivae/corneas clear. Neck: Supple, with full range of motion. Respiratory: Normal respiratory effort. Clear to auscultation, bilaterally without Rales/Wheezes/Rhonchi. Cardiovascular: Regular rate and rhythm with normal S1/S2 without murmurs, rubs or gallops. Abdomen: Soft, non-tender, non-distended with normal bowel sounds. No rebound or guarding. Musculoskeletal: No clubbing, cyanosis or edema bilaterally. Full range of motion without deformity. Skin: Skin color, texture, turgor normal. No rashes or lesions. LABS: CBC: Recent Labs 10/31/20220 WBC 9.5 RBC 4.14* HGB 12.0* HCT 35.7* MCV 86.3 RDW 14.0 PLT 294 BMP: Recent Labs 10/30/20 0116 10/31/201 11/01/20 0235 NA 140 136 137 K 4.0 3.8 4.2 CL 114* 112* 113* CO2 18* 17* 18* BUN 30* 30* 32* CREATININE 2.01* 1.84* 1.77* GLUCOSE 142* 139* 134* CALCIUM 8.6 8.7 8.7 ANIONGAP 8 7 7 LIVER PROFILE: Recent Labs 10/30/20 0116 10/31/201 11/01/20 0235 AST 67* 67* 135* ALT 67* 79* 173* BILITOT 0.3 0.4 0.5 ALKPHOS 75 69 77 LABALBU 2.9* 2.8* 3.1* PROT 5.7* 5.3* 5.6* PT/INR: No results for input(s): PROTIME, INR in the last 72 hours. CARDIAC ENZYMES: No results for input(s): TROPONINI in the last 72 hours. Procalcitonin: Lab Results Component Value Date PROCAL 0.31 10/29/2020 Glucose: No results for input(s): POCGLU in the last 72 hours. COVID-19 PCR: No results for input(s): COVID19 in the last 72 hours. Assessment / Plan 1. Acute hypoxic respiratory failure CTA neg for PE, pos for BL GGO 2. COVID19 Pneumonia 3. Elevated Cr - concern for DONNA - has known CKD from vasculitis but there is no previous baseline Cre 4. Hx Rey's granulomatosis / Polyangitis 5. Hyponatremia/hypokalemia 6. Elevated transaminitis - due to Covid likely 7. Arthritis 8. Bipolar1 disorder / Schizoaffective / Schizophrenia 9. Hx of TBI / seizure disorer 10. GERD 11. HTN 12. HLP - Decadron, Remdesivir, Bronchodilators - NC O2 to keep oxygen sat >90% - Trend inflammatory markers - Nephrology input appreciated -am labs, replace lytes prn -increase activity -DVT prophylaxis: [] Lovenox [x] Heparin [] SCDs [x] Encourage ambulation [] Already on Anticoagulation Advance Directive: Full Code Discharge planning: TBD Farrukh Diaz MD Division of Hospitalist Medicine Inpatient Medical Services PAGER: [phone] * Bakari Hdz MD - 10/31/2020 9:35 AM EST [facility] Nephrology Progress Note Subjective/ 55 y.o. year old male who we are seeing in consultation for DONNA on CKD, h/o vasculitis. Interval Hx: crea better despite contrast exposure on 10/30 with CTA noted Bicarb noted Pt desaturated on ambulation, is on 6 L O2 now noted naeon ROS negative except above All his labs, chart, data and interval events have keyon reviewed Objective/ Vitals: 10/30/20 1449 10/30/20 2227 10/31/20 0011 10/31/20 0834 BP: 107/61 109/64 131/80 Pulse: 58 67 85 Resp: Temp: 96.3 F (35.7 C) 96.5 F (35.8 C) (!) 70.2 F (21.2 C) TempSrc: Temporal Temporal Temporal SpO2: 92% 92% 93% 91% Weight: 24HR INTAKE/OUTPUT: No intake or output data in the 24 hours ending 10/31/20 0936 General: NAD, Comfortable appearing, cooperative to history and physical exam. Head: AT NC Neck: Supple, no jvd Chest: B/L clear, no crackles, no accessory muscles usage. CV: RRR, no murmurs or rubs Abdomen: NT, ND, soft Extremities: No peripheral edema, no tremor Neurological: Moving all four extremities, no focal neurological deficit Psychiatric: Normal insight and judgement, good recall Current Facility-Administered Medications Medication Dose Route Frequency Provider Last Rate Last Admin ipratropium-albuterol (DUONEB) nebulizer solution 1 ampule 1 ampule Inhalation Q4H AK Farrukh Diaz MD 1 ampule at 10/30/207 sulfamethoxazole-trimethoprim (BACTRIM DS;SEPTRA DS) 800-160 MG per tablet 1 tablet 1 tablet Oral Once per day on Tue Piyush Daniel MD 1 tablet at 10/29/202010 heparin (porcine) injection 5,000 Units 5,000 Units Subcutaneous 3 times per day Farrukh Diaz MD5,000 Units at 10/30/202003 sodium chloride flush 0.9 % injection 10 mL 10 mL Intravenous 2 times per day Farrukh Diaz MD 10mL at 10/30/202002 sodium chloride flush 0.9 % injection 10 mL 10 mL Intravenous PRN Farrukh Diaz MD promethazine (PHENERGAN) tablet 12.5 mg 12.5 mg Oral Q6H PRN Farrukh Diaz MD Or ondansetron (ZOFRAN) injection 4 mg 4 mg Intravenous Q6H PRN Farrukh Diaz MD polyethylene glycol (GLYCOLAX) packet 17 g 17 g Oral Daily PRN Farrukh Diaz MD acetaminophen (TYLENOL) tablet 650 mg 650 mg Oral Q6H PRN Farrukh Diaz MD Or acetaminophen (TYLENOL) suppository 650 mg 650 mg Rectal Q6H PRN Farrukh Diaz MD dexamethasone (DECADRON) tablet 6 mg 6 mg Oral Daily Farrukh Diaz MD 6 mg at 10/30/20 1037 guaiFENesin-dextromethorphan (ROBITUSSIN DM) 100-10 MG/5ML syrup 5 mL 5 mL Oral Q4H PRN Farrukh Diaz MD 5 mL at 10/29/20 0702 Vitamin D (CHOLECALCIFEROL) tablet 2,000 Units 2,000 Units Oral Daily Farrukh Diaz MD 2,000 Units at 10/30/20 1037 remdesivir 100 mg in sodium chloride 0.9 % 250 mL IVPB 100 mg Intravenous Q24H Farrukh Diaz MD Stopped at 10/30/20 2134 0.9 % sodium chloride bolus 30 mL Intravenous PRN Farrukh Diaz MD atorvastatin (LIPITOR) tablet 20 mg 20 mg Oral Daily Farrukh Diaz MD 20 mg at 10/30/20 1038 cyclobenzaprine (FLEXERIL) tablet 10 mg 10 mg Oral TID PRN Farrukh Diaz MD 10 mg at 10/28/202049 famotidine (PEPCID) tablet 40 mg 40 mg Oral Daily Farrukh Diaz MD 40 mg at 10/30/20 1038 hydroxychloroquine (PLAQUENIL) tablet 100 mg 100 mg Oral Daily Farrukh Diaz MD 200 mg at 10/30/20 1040 lithium capsule 300 mg 300 mg Oral Nightly Farrukh Diaz MD 300 mg at 10/30/202003 cetirizine (ZYRTEC) tablet 5 mg 5 mg Oral Daily Farrukh Diaz MD 5 mg at 10/30/20 1038 melatonin tablet 3 mg 3 mg Oral Nightly Farrukh Diaz MD 3 mg at 10/30/202002 metoprolol succinate (TOPROL XL) extended release tablet 50 mg 50 mg Oral Daily Farrukh Diaz MD 50 mg at 10/30/20 1044 omega-3 acid ethyl esters (LOVAZA) capsule 1 capsule 1 capsule Oral Daily Farrukh Diaz MD 1 capsule at 10/30/20 1038 pantoprazole (PROTONIX) tablet 40 mg 40 mg Oral QAM AC Farrukh Diaz MD 40 mg at 10/30/20 0501 paliperidone (INVEGA) extended release tablet 6 mg 6 mg Oral QAM Farrukh Diaz MD 6 mg at 10/30/20 1039 QUEtiapine (SEROQUEL XR) extended release tablet 600 mg 600 mg Oral Nightly Farrukh Diaz MD 600 mg at 10/30/202002 Data/ Recent Labs 10/29/20 0534 10/29/20 1115 10/31/20 0221 WBC 4.4 7.8 9.5 HGB 12.2* 12.6* 12.0* HCT 36.7* 37.3* 35.7* MCV 87.8 86.7 86.3 PLT 231 255 294 Recent Labs 10/29/20 1115 10/30/20 0116 10/31/20 0221 NA 137 140 136 K 3.9 4.0 3.8 CL 112* 114* 112* CO2 18* 18* 17* GLUCOSE 132* 142* 139* BUN 33* 30* 30* CREATININE 2.24* 2.01* 1.84* Assessment/ 1. DONNA 2/2 ATN (sepsis, volume depletion) 2. CKD IV 3. C ANCA vasculitis 4. Immunosuppression 5. COVID 19+ pneumonia. Plan: Patient is adequately volume resuscitated at this point. No more ivf needed S/p contrats exposure 10/30, crea staying stable so far, trend Plan to restart home lasix dose today since crea improvinig Continue to hold Losartan. No changes needed to immunosuppressive therapy. May need to institute the antibiotic 3x/week the one he was on outpatient. 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 D/w IMS. No urgent [employer] indications. Will follow. [facility] * Farrukh Diaz MD - 10/30/2020 3:50 PM EST Hospitalist Progress Note 10/30/2020 3:50 PM [phone]: Please page [place] [phone] for patient care issues. [phone]: Please page [facility] night Hospitalist for any issues. Subjective: Admit Date: 10/28/2020 PCP: No primary care provider on file. Interval History: No overnight issues. Feeling better, SOB improved. Still on 5L NC this am. DIET GENERAL; Patient Vitals for the past 96 hrs (Last 3 readings): Weight 10/29/20 1055 265 lb 3.2 oz (120.3 kg) 24HR INTAKE/OUTPUT: No intake or output data in the 24 hours ending 10/30/20 1550 Medications: sulfamethoxazole-trimethoprim 1 tablet Oral Once per day on Tue heparin (porcine) 5,000 Units Subcutaneous 3 times per day sodium chloride flush 10 mL Intravenous 2 times per day dexamethasone 6 mg Oral Daily Vitamin D 2,000 Units Oral Daily remdesivir IVPB 100 mg Intravenous Q24H atorvastatin 20 mg Oral Daily famotidine 40 mg Oral Daily hydroxychloroquine 100 mg Oral Daily lithium 300 mg Oral Nightly cetirizine 5 mg Oral Daily melatonin 3 mg Oral Nightly metoprolol succinate 50 mg Oral Daily omega-3 acid ethyl esters 1 capsule Oral Daily pantoprazole 40 mg Oral QAM AC paliperidone 6 mg Oral QAM QUEtiapine 600 mg Oral Nightly Objective: Vitals: BP 107/61 Pulse 58 Temp 96.3 F (35.7 C) (Temporal) Resp 20 Wt 265 lb 3.2 oz (120.3 kg) SpO2 92% Pulse Ox: SpO2 Av.7 % Min: 91 % Max: 92 % Supplemental O2: O2 Flow Rate (L/min): 5 L/min General appearance: No apparent distress, appears stated age and cooperative with exam HEENT: Normal cephalic, atraumatic without obvious deformity. Extra ocular muscles intact. Conjunctivae/corneas clear. Neck: Supple, with full range of motion. Respiratory: Normal respiratory effort. Clear to auscultation, bilaterally without Rales/Wheezes/Rhonchi. Cardiovascular: Regular rate and rhythm with normal S1/S2 without murmurs, rubs or gallops. Abdomen: Soft, non-tender, non-distended with normal bowel sounds. No rebound or guarding. Musculoskeletal: No clubbing, cyanosis or edema bilaterally. Full range of motion without deformity. Skin: Skin color, texture, turgor normal. No rashes or lesions. LABS: CBC: Recent Labs 10/28/20 1619 10/29/20 0534 10/29/20 1115 WBC 4.6 4.4 7.8 RBC 4.42 4.19* 4.30* HGB 12.9* 12.2* 12.6* HCT 38.1* 36.7* 37.3* MCV 86.2 87.8 86.7 RDW 14.0 13.8 14.2 PLT 223 231 255 BMP: Recent Labs 10/29/20 0534 10/29/20 1115 10/30/20 0116 NA 136 137 140 K 4.3 3.9 4.0 CL 110* 112* 114* CO2 17* 18* 18* BUN 31* 33* 30* CREATININE 2.37* 2.24* 2.01* GLUCOSE 139* 132* 142* CALCIUM 8.5 8.9 8.6 ANIONGAP 9 7 8 LIVER PROFILE: Recent Labs 10/29/20 0534 10/29/20 1115 10/30/20 0116 AST 86* 88* 67* ALT 67* 67* 67* BILITOT 0.5 0.6 0.3 ALKPHOS 81 71 75 LABALBU 3.0* 3.2* 2.9* PROT 5.8* 6.0* 5.7* PT/INR: No results for input(s): PROTIME, INR in the last 72 hours. CARDIAC ENZYMES: Recent Labs 10/28/20 1619 TROPONINI <0.012 Procalcitonin: Lab Results Component Value Date PROCAL 0.31 10/29/2020 Glucose: No results for input(s): POCGLU in the last 72 hours. COVID-19 PCR: Recent Labs 10/28/20 0000 COVID19 NEGATIVE: No targets were detected by the [employer] Upper Respiratory Pathogens PCR Panel. _ Expected Result: Not Detected The [employer] Upper Respiratory Pathogens PCR Panel can detect the following targets: SARS-CoV-2, Adenovirus, Coronavirus 229E, Coronavirus HKU1, Coronavirus NL63, Coronavirus OC43, Human Metapneumovirus, Human Rhinovirus/Enterovirus, Influenza A, Influenza B, Parainfluenza Virus 1, Parainfluenza Virus 2, Parainfluenza Virus 3, Parainfluenza Virus 4, Respiratory Syncytial Virus, Bordetella pertussis, Bordetella parapertussis, Chlamydia pneumoniae, Mycoplasma pneumoniae. Negative results do not preclude SARS-CoV-2 infection and should not be used as the sole basis for treatment or other patient management decisions. This assay was developed by [employer] and distributed under an Emergency Use Authorization (EUA) granted by the FDA for the qualitative detection of SARS-CoV-2 nucleic acid. Provider and patient fact sheets can be found at https://www.fda. gov/media/470191/download and https://www.fda.gov/media/307050/download. Assessment / Plan 1. Acute hypoxic respiratory failure CTA neg for PE, pos for BL GGO 2. COVID19 Pneumonia 3. Elevated Cr - concern for DONNA - has known CKD from vasculitis but there is no previous baseline Cre 4. Hx Wsgener's granulomatosis / Polyangitis 5. Hyponatremia/hypokalemia 6. Elevated transaminitis - due to Covid likely 7. Arthritis 8. Bipolar1 disorder / Schizoaffective / Schizophrenia 9. Hx of TBI / seizure disorer 10. GERD 11. HTN 12. HLP - Decadron, Remdesivir, Bronchodilators - NC O2 to keep oxygen sat >90% - Trend inflammatory markers - Nephrology input appreciated -am labs, replace lytes prn -increase activity -DVT prophylaxis: [] Lovenox [] Heparin [] SCDs [x] Encourage ambulation [] Already on Anticoagulation Advance Directive: Full Code Discharge planning: TBD Farrukh Diaz MD Division of Hospitalist Medicine Inpatient Medical Services PAGER: [phone] * Bakari Hdz MD - 10/30/2020 10:18 AM EST [facility] Nephrology Progress Note Subjective/ 55 y.o. year old male who we are seeing in consultation for DONNA on CKD, h/o vasculitis. Interval Hx: crea better despite contrast exposure on 10/30 with CTA noted Bicarb stable at 18 Pt desaturated on ambulation, is on 5 L O2 now noted naeon ROS negative except above All his labs, chart, data and interval events have keyon reviewed Objective/ Vitals: 10/29/20 1055 10/29/20 1446 10/29/20 2147 10/30/20 0734 BP: 104/69 128/82 (!) 108/92 Pulse: 68 78 97 Resp: Temp: 96.7 F (35.9 C) 97.4 F (36.3 C) 96.2 F (35.7 C) TempSrc: Temporal Temporal Temporal SpO2: 90% 91% 92% Weight: 265 lb 3.2 oz (120.3 kg) 24HR INTAKE/OUTPUT: No intake or output data in the 24 hours ending 10/30/20 1018 General: NAD, Comfortable appearing, cooperative to history and physical exam. Head: AT NC Neck: Supple, no jvd Chest: B/L clear, no crackles, no accessory muscles usage. CV: RRR, no murmurs or rubs Abdomen: NT, ND, soft Extremities: No peripheral edema, no tremor Neurological: Moving all four extremities, no focal neurological deficit Psychiatric: Normal insight and judgement, good recall Current Facility-Administered Medications Medication Dose Route Frequency Provider Last Rate Last Admin sulfamethoxazole-trimethoprim (BACTRIM DS;SEPTRA DS) 800-160 MG per tablet 1 tablet 1 tablet Oral Once per day on Tue Piyush Daniel MD 1 tablet at 10/29/202010 heparin (porcine) injection 5,000 Units 5,000 Units Subcutaneous 3 times per day Farrukh Diaz MD5,000 Units at 10/30/20 0445 sodium chloride flush 0.9 % injection 10 mL 10 mL Intravenous 2 times per day Farrukh Diaz MD 10mL at 10/29/202010 sodium chloride flush 0.9 % injection 10 mL 10 mL Intravenous PRN Farrukh Diaz MD promethazine (PHENERGAN) tablet 12.5 mg 12.5 mg Oral Q6H PRN Farrukh Diaz MD Or ondansetron (ZOFRAN) injection 4 mg 4 mg Intravenous Q6H PRN Farrukh Diaz MD polyethylene glycol (GLYCOLAX) packet 17 g 17 g Oral Daily PRN Farrukh Diaz MD acetaminophen (TYLENOL) tablet 650 mg 650 mg Oral Q6H PRN Farrukh Diaz MD Or acetaminophen (TYLENOL) suppository 650 mg 650 mg Rectal Q6H PRN Farrukh Diaz MD dexamethasone (DECADRON) tablet 6 mg 6 mg Oral Daily Farrukh Diaz MD 6 mg at 10/29/20 08 guaiFENesin-dextromethorphan (ROBITUSSIN DM) 100-10 MG/5ML syrup 5 mL 5 mL Oral Q4H PRN Farrukh Diaz MD 5 mL at 10/29/20 07 Vitamin D (CHOLECALCIFEROL) tablet 2,000 Units 2,000 Units Oral Daily Farrukh Diaz MD 2,000 Units at 10/29/20 08 remdesivir 100 mg in sodium chloride 0.9 % 250 mL IVPB 100 mg Intravenous Q24H Farrukh Diaz MD Stopped at 10/29/202008 0.9 % sodium chloride bolus 30 mL Intravenous PRN Farrukh Diaz MD atorvastatin (LIPITOR) tablet 20 mg 20 mg Oral Daily Farrukh Diaz MD 20 mg at 10/29/20 08 cyclobenzaprine (FLEXERIL) tablet 10 mg 10 mg Oral TID PRN Farrukh Diaz MD 10 mg at 10/28/202049 famotidine (PEPCID) tablet 40 mg 40 mg Oral Daily Farrukh Diaz MD 40 mg at 10/29/20824 hydroxychloroquine (PLAQUENIL) tablet 100 mg 100 mg Oral Daily Farrukh Diaz MD 100 mg at 10/29/20824 lithium capsule 300 mg 300 mg Oral Nightly Farrukh Diaz MD 300 mg at 10/29/202010 cetirizine (ZYRTEC) tablet 5 mg 5 mg Oral Daily Farrukh Diaz MD 5 mg at 10/29/20825 melatonin tablet 3 mg 3 mg Oral Nightly Farrukh Diaz MD 3 mg at 10/29/202010 metoprolol succinate (TOPROL XL) extended release tablet 50 mg 50 mg Oral Daily Farrukh Diaz MD 50 mg at 10/29/20824 omega-3 acid ethyl esters (LOVAZA) capsule 1 capsule 1 capsule Oral Daily Farrukh Diaz MD 1 capsule at 10/29/20 08 pantoprazole (PROTONIX) tablet 40 mg 40 mg Oral QAM AC Farrukh Diaz MD 40 mg at 10/30/20 0501 paliperidone (INVEGA) extended release tablet 6 mg 6 mg Oral QAM Farrukh Diaz MD 6 mg at 10/29/20 0824 QUEtiapine (SEROQUEL XR) extended release tablet 600 mg 600 mg Oral Nightly Farrukh Diaz MD 600 mg at 10/29/202010 Data/ Recent Labs 10/28/20 1619 10/29/20 0534 10/29/20 1115 WBC 4.6 4.4 7.8 HGB 12.9* 12.2* 12.6* HCT 38.1* 36.7* 37.3* MCV 86.2 87.8 86.7 PLT 223 231 255 Recent Labs 10/29/20 0534 10/29/20 1115 10/30/20 0116 NA 136 137 140 K 4.3 3.9 4.0 CL 110* 112* 114* CO2 17* 18* 18* GLUCOSE 139* 132* 142* BUN 31* 33* 30* CREATININE 2.37* 2.24* 2.01* Assessment/ 1. DONNA 2/2 ATN (sepsis, volume depletion) 2. CKD IV 3. C ANCA vasculitis 4. Immunosuppression 5. COVID 19+ pneumonia. Plan: Patient is adequately volume resuscitated at this point. No more ivf needed S/p contrats exposure 10/30, crea staying stable so far, trend Plan to restart home lasix dose dani am if crea improvinig Continue to hold Losartan. No changes needed to immunosuppressive therapy. May need to institute the antibiotic 3x/week the one he was on outpatient. 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 D/w IMS. No urgent [employer] indications. Will follow. [facility] * Jeanie Samuel - 10/30/2020 9:42 AM EST Nutrition rescreen completed. Patient assigned a level 1. * Farrukh Diaz MD - 10/29/2020 5:56 PM EST Hospitalist Progress Note 10/29/2020 5:56 PM [phone]: Please page [place] [phone] for patient care issues. [phone]: Please page [facility] night Hospitalist for any issues. Subjective: Admit Date: 10/28/2020 PCP: No primary care provider on file. Interval History: No overnight issues. Feeling better, SOB improved. Still on 5L NC this am. DIET GENERAL; Patient Vitals for the past 96 hrs (Last 3 readings): Weight 10/29/20 1055 265 lb 3.2 oz (120.3 kg) 24HR INTAKE/OUTPUT: No intake or output data in the 24 hours ending 10/29/20 1756 Medications: sodium chloride 125 mL/hr at 10/29/20 0531 sulfamethoxazole-trimethoprim 1 tablet Oral Once per day on Tue heparin (porcine) 5,000 Units Subcutaneous 3 times per day sodium chloride flush 10 mL Intravenous 2 times per day dexamethasone 6 mg Oral Daily Vitamin D 2,000 Units Oral Daily remdesivir IVPB 100 mg Intravenous Q24H atorvastatin 20 mg Oral Daily famotidine 40 mg Oral Daily hydroxychloroquine 100 mg Oral Daily lithium 300 mg Oral Nightly cetirizine 5 mg Oral Daily melatonin 3 mg Oral Nightly metoprolol succinate 50 mg Oral Daily omega-3 acid ethyl esters 1 capsule Oral Daily pantoprazole 40 mg Oral QAM AC paliperidone 6 mg Oral QAM QUEtiapine 600 mg Oral Nightly Objective: Vitals: BP 104/69 Pulse 68 Temp 96.7 F (35.9 C) (Temporal) Resp 20 Wt 265 lb 3.2 oz (120.3 kg) SpO2 90% Pulse Ox: SpO2 Av.5 % Min: 90 % Max: 92 % Supplemental O2: O2 Flow Rate (L/min): 5 L/min General appearance: No apparent distress, appears stated age and cooperative with exam HEENT: Normal cephalic, atraumatic without obvious deformity. Extra ocular muscles intact. Conjunctivae/corneas clear. Neck: Supple, with full range of motion. Respiratory: Normal respiratory effort. Clear to auscultation, bilaterally without Rales/Wheezes/Rhonchi. Cardiovascular: Regular rate and rhythm with normal S1/S2 without murmurs, rubs or gallops. Abdomen: Soft, non-tender, non-distended with normal bowel sounds. No rebound or guarding. Musculoskeletal: No clubbing, cyanosis or edema bilaterally. Full range of motion without deformity. Skin: Skin color, texture, turgor normal. No rashes or lesions. LABS: CBC: Recent Labs 10/28/20 1619 10/29/20 0534 10/29/20 1115 WBC 4.6 4.4 7.8 RBC 4.42 4.19* 4.30* HGB 12.9* 12.2* 12.6* HCT 38.1* 36.7* 37.3* MCV 86.2 87.8 86.7 RDW 14.0 13.8 14.2 PLT 223 231 255 BMP: Recent Labs 10/28/20 16110/29/20 0534 10/29/20 1115 NA 133* 136 137 K 3.1* 4.3 3.9 CL 101 110* 112* CO2 22 17* 18* BUN 35* 31* 33* CREATININE 2.96* 2.37* 2.24* GLUCOSE 122* 139* 132* CALCIUM 8.6 8.5 8.9 ANIONGAP 9 9 7 LIVER PROFILE: Recent Labs 10/28/20 16110/29/20 0534 10/29/20 1115 AST 87* 86* 88* ALT 60* 67* 67* BILITOT 0.6 0.5 0.6 ALKPHOS 82 81 71 LABALBU 3.3* 3.0* 3.2* PROT 6.2* 5.8* 6.0* PT/INR: No results for input(s): PROTIME, INR in the last 72 hours. CARDIAC ENZYMES: Recent Labs 10/28/201618 TROPONINI <0.012 Procalcitonin: Lab Results Component Value Date PROCAL 0.31 10/29/2020 Glucose: No results for input(s): POCGLU in the last 72 hours. COVID-19 PCR: Recent Labs 10/28/20 0000 COVID19 NEGATIVE: No targets were detected by the [employer] Upper Respiratory Pathogens PCR Panel. _ Expected Result: Not Detected The [employer] Upper Respiratory Pathogens PCR Panel can detect the following targets: SARS-CoV-2, Adenovirus, Coronavirus 229E, Coronavirus HKU1, Coronavirus NL63, Coronavirus OC43, Human Metapneumovirus, Human Rhinovirus/Enterovirus, Influenza A, Influenza B, Parainfluenza Virus 1, Parainfluenza Virus 2, Parainfluenza Virus 3, Parainfluenza Virus 4, Respiratory Syncytial Virus, Bordetella pertussis, Bordetella parapertussis, Chlamydia pneumoniae, Mycoplasma pneumoniae. Negative results do not preclude SARS-CoV-2 infection and should not be used as the sole basis for treatment or other patient management decisions. This assay was developed by [employer] and distributed under an Emergency Use Authorization (EUA) granted by the FDA for the qualitative detection of SARS-CoV-2 nucleic acid. Provider and patient fact sheets can be found at https://www.fda. gov/media/213527/download and https://www.fda.gov/media/983973/download. Assessment / Plan 1. Acute hypoxic respiratory failure CTA neg for PE, pos for BL GGO 2. COVID19 Pneumonia 3. Elevated Cr - concern for DONNA - has known CKD from vasculitis but there is no previous baseline Cre 4. Hx Wsgener's granulomatosis / Polyangitis 5. Hyponatremia/hypokalemia 6. Elevated transaminitis - due to Covid likely 7. Arthritis 8. Bipolar1 disorder / Schizoaffective / Schizophrenia 9. Hx of TBI / seizure disorer 10. GERD 11. HTN 12. HLP - Decadron, Remdesivir, Bronchodilators - NC O2 to keep oxygen sat >90% - Trend inflammatory markers - Nephrology input appreciated -am labs, replace lytes prn -increase activity -DVT prophylaxis: [] Lovenox [] Heparin [] SCDs [x] Encourage ambulation [] Already on Anticoagulation Advance Directive: Full Code Discharge planning: TBD Farrukh Diaz MD Division of Hospitalist Medicine Inpatient Medical Services PAGER: [phone] * Shirley Casillas RN - 10/29/2020 10:49 AM EST Documentation in [facility] disease Reporting System: * Farrukh Diaz MD - 10/29/2020 9:58 AM EST Patient unable to get CTA chest due to DONNA - will hydrate and if able, will get it at a later time. * Irena Land RN - 10/29/2020 12:48 AM EST Patient moved into private bed [address] Mosley. Patients COVID test came back negative. Dr. Pro nursing rubbish collection supervisor made aware. documented in this encounter Assessments Diagnosis Pneumonia due to COVID-19 virus- Primary Hypoxia Hypoxemia Hypokalemia Hypopotassemia Stage 3 chronic kidney disease, unspecified whether stage 3a or 3b CKD Chief Complaint and Reason for Visit Chief Complaint ASSISTED LAB WOR K ASSISTED LABWORK ASSISTED LABWORK ASSISTED LABWORK ASSISTED LAB WORK ASSISTED LABWORK Chief Complaint ASSISTED LABWORK ASSISTED LABWORK ASSISTED LAB WORK ASSISTED LABWORK ASSISTED LABWORK ASSISTED LABWORK Chief Complaint ASSISTED LABWORK ASSISTED LAB WORK ASSISTED LABWORK ASSISTED LABWORK ASSISTED LABWORK LABWORK ASSISTED LABWORK Chief Complaint ASSISTED LABWORK ASSISTED LAB WORK ASSISTED LABWORK ASSISTED LABWORK ASSISTED LABWORK LABWORK ASSISTED LABWORK LABWORK Chief Complaint ASSISTED LAB WOR K ASSISTED LABWORK ASSISTED LABWORK ASSISTED LABWORK LABWORK ASSISTED LABWORK LABWORK LABWORK Chief Complaint ASSISTED LABWORK ASSISTED LABWORK LABWORK ASSISTED LABWORK LABWORK ASSISTED LABWORK LABWORK ASSISTED LAB WORK LABWORK Chief Complaint LABWORK ASSISTED LABWORK LABWORK ASSISTED LABWORK LABWORK ASSISTED LAB WORK LABWORK LABWORK LABWORK Chief Complaint LABWORK ASSISTED LABWORK LABWORK ASSISTED LABWORK LABWORK ASSISTED LAB WORK LABWORK LABWORK LABWORK ASSISTED LABWORK Chief Complaint ASSISTED LABWORK LABWORK ASSISTED LABWORK LABWORK ASSISTED LAB WORK LABWORK LABWORK LABWORK ASSISTED LABWORK ASSISTED LABWORK Chief Complaint LABWORK LABWORK LABWORK ASSISTED LABWORK ASSISTED LABWORK ASSISTED LABWORK Chief Complaint LABWORK LABWORK LABWORK ASSISTED LABWORK ASSISTED LABWORK LABWORK ASSISTED LABWORK Chief Complaint LABWORK LABWORK ASSISTED LABWORK ASSISTED LABWORK LABWORK ASSISTED LABWORK ASSISTED LAB WORK ASSISTED LABWORK Chief Complaint LABWORK ASSISTED LABWORK ASSISTED LABWORK LABWORK ASSISTED LABWORK ASSISTED LAB WORK ASSISTED LABWORK ASSISTED LABWORK Chief Complaint LABWORK ASSISTED LABWORK ASSISTED LAB WORK ASSISTED LABWORK ASSISTED LABWORK LABWORK ASSISTED LAB WORK LABWORK Chief Complaint ASSISTED LABWORK ASSISTED LAB WORK ASSISTED LABWORK ASSISTED LABWORK LABWORK ASSISTED LAB WORK LABWORK LABWORK Chief Complaint ASSISTED LABWORK ASSISTED LAB WORK ASSISTED LABWORK ASSISTED LABWORK LABWORK ASSISTED LAB WORK LABWORK LABWORK ASSISTED LAB WORK Chief Complaint ASSISTED LABWORK LABWORK ASSISTED LAB WORK LABWORK LABWORK ASSISTED LAB WORK ASSISTED LABWORK Chief Complaint LABWORK ASSISTED LAB WORK LABWORK LABWORK ASSISTED LAB WORK ASSISTED LABWORK LABWORK ASSISTED LABWORK Chief Complaint ASSISTED LAB WOR K LABWORK LABWORK ASSISTED LAB WORK ASSISTED LABWORK LABWORK ASSISTED LABWORK LABWORK Chief Complaint ASSISTED LAB WOR K LABWORK LABWORK ASSISTED LAB WORK ASSISTED LABWORK LABWORK ASSISTED LABWORK LABWORK ASSISTED LAB WORK Chief Complaint LABWORK LABWORK ASSISTED LAB WORK ASSISTED LABWORK LABWORK ASSISTED LABWORK LABWORK LABWORK ASSISTED LAB WORK ASSISTED LABWORK Chief Complaint LABWORK ASSISTED LAB WORK ASSISTED LABWORK LABWORK ASSISTED LABWORK LABWORK LABWORK ASSISTED LAB WORK ASSISTED LABWORK LABWORK Chief Complaint ASSISTED LAB WOR K ASSISTED LABWORK LABWORK ASSISTED LABWORK LABWORK LABWORK ASSISTED LAB WORK ASSISTED LABWORK LABWORK LABWORK Chief Complaint LABWORK LABWORK ASSISTED LABWORK ASSISTED LABWORK LABWORK LABWORK ASSISTED LAB WORK ASSISTED LABWORK Chief Complaint ASSISTED LABWORK ASSISTED LABWORK LABWORK LABWORK ASSISTED LAB WORK ASSISTED LABWORK ASSISTED LAB WORK LABWORK Chief Complaint LABWORK LABWORK ASSISTED LAB WORK ASSISTED LABWORK ASSISTED LAB WORK LABWORK LABWORK Chief Complaint ASSISTED LAB WOR K ASSISTED LABWORK ASSISTED LAB WORK LABWORK LABWORK ASSISTED LABWORK ASSISTED LABWORK Chief Complaint LABWORK LABWORK ASSISTED LABWORK ASSISTED LABWORK LABWORK Chief Complaint LABWORK LABWORK ASSISTED LABWORK ASSISTED LABWORK LABWORK ASSISTED LAB WORK Chief Complaint LABWORK LABWORK ASSISTED LABWORK ASSISTED LABWORK LABWORK ASSISTED LAB WORK LABWORK Chief Complaint ASSISTED LABWORK ASSISTED LABWORK LABWORK ASSISTED LAB WORK LABWORK ASSISTED LABWORK Chief Complaint ASSISTED LABWORK ASSISTED LABWORK LABWORK ASSISTED LAB WORK LABWORK ASSISTED LABWORK ASSISTED LAB WORK Chief Complaint LABWORK ASSISTED LAB WORK LABWORK ASSISTED LABWORK ASSISTED LAB WORK ASSISTED LAB WORK LABWORK Chief Complaint ASSISTED LAB WOR K LABWORK ASSISTED LABWORK ASSISTED LAB WORK ASSISTED LAB WORK LABWORK LABWORK Chief Complaint ASSISTED LABWORK ASSISTED LAB WORK ASSISTED LAB WORK LABWORK LABWORK LABWORK Chief Complaint Admit Date ASSISTED LAB WORK September 27 5:00am ASSISTED LAB WORK November 15, 2024 5:00am ASSISTED LAB WORK November 27, 2024 5:00am ASSISTED LAB WORK December 28 5:00am ASSISTED LAB WORK January 02 5:00am ASSISTED LAB WORK January 03 6:10am Chief Complaint Admit Date ASSISTED LAB WORK November 15, 2024 5:00am ASSISTED LAB WORK November 27, 2024 5:00am ASSISTED LAB WORK December 28 5:00am ASSISTED LAB WORK January 02 5:00am ASSISTED LAB WORK January 03 6:10am ASSISTED LAB WORK January 25, 2025 5 :00am Chief Complaint Admit Date ASSISTED LAB WORK November 15, 2024 5:00am ASSISTED LAB WORK November 27, 2024 5:00am ASSISTED LAB WORK December 28 5:00am ASSISTED LAB WORK January 02 5:00am ASSISTED LAB WORK January 03 6:10am ASSISTED LAB WORK January 25, 2025 5 :00am ASSISTED LAB WORK January 30, 2025 5 :00am Chief Complaint Admit Date ASSISTED LAB WORK November 15, 2024 5:00am ASSISTED LAB WORK November 27, 2024 5:00am ASSISTED LAB WORK December 28 5:00am ASSISTED LAB WORK January 02 5:00am ASSISTED LAB WORK January 03 6:10am ASSISTED LAB WORK January 25, 2025 5 :00am ASSISTED LAB WORK January 30, 2025 5 :00am LABWORKJ February 06, 2025 5:0 0am LABWORK February 11, 2025 5:0 0am Chief Complaint Admit Date ASSISTED LAB WORK November 27, 2024 5:00am ASSISTED LAB WORK December 28 5:00am ASSISTED LAB WORK January 02 5:00am ASSISTED LAB WORK January 03 6:10am ASSISTED LAB WORK January 25, 2025 5 :00am ASSISTED LAB WORK January 30, 2025 5 :00am LABWORKJ February 06, 2025 5:0 0am LABWORK February 11, 2025 5:0 0am LABWORK February 27, 2025 5:0 0am Chief Complaint Admit Date ASSISTED LAB WORK November 27, 2024 5:00am ASSISTED LAB WORK December 28 5:00am ASSISTED LAB WORK January 02 5:00am ASSISTED LAB WORK January 03 6:10am ASSISTED LAB WORK January 25, 2025 5 :00am ASSISTED LAB WORK January 30, 2025 5 :00am LABWORKJ February 06, 2025 5:0 0am LABWORK February 11, 2025 5:0 0am ASSISTED LAB WORK February 25, 2025 5 :00am LABWORK February 27, 2025 5:0 0am Chief Complaint Admit ASSISTED LAB WORK December 28 5:00am ASSISTED LAB WORK January 02 5:00am ASSISTED LAB WORK January 03 6:10am ASSISTED LAB WORK January 25, 2025 5 :00am ASSISTED LAB WORK January 30, 2025 5 :00am LABWORKJ February 06, 2025 5:0 0am LABWORK February 11, 2025 5:0 0am ASSISTED LAB WORK February 25, 2025 5 :00am LABWORK February 27, 2025 5:0 0am ASSISTED LAB WORK March 04, 2025 1 0:30pm Medications Administered Section Inactive Administered Medications - up to 3 most recent administrations Medication Order MAR Action Action Date Dose Rate Site riTUXimab-pvvr 1,000 mg in NaCl 0.9% 640 mL (RUXIENCE) 1,000 mg, INTRAVENOUS, ONCE, 1 dose, On Tue05/05/22 at 0730, EXP: See attached infusion instructions. Refrigerate. New Bag/Syringe/Bottle 05/05/2022 8:30 AM EDT 1,000 mg Inactive Administered Medications - up to 3 most recent administrations Medication Order MAR Action Action Date Dose Rate Site acetaminophen 1,000 mg tab(s) (TYLENOL) 1,000 mg, ORAL, ONCE, 1 dose, On Tue11/03/22 at 0800 Given 11/03/2022 8:05 AM EST 1,000 mg diphenhydrAMINE 50 mg (BENADRYL) 50 mg, ORAL, ONCE, 1 dose, On Tue11/03/22 at 0800 Given 11/03/2022 8:04 AM EST 50 mg methylPREDNISolone sod succinate(PF) 125 mg injection (SOLU-Medrol) 125 mg, INTRAVENOUS, ONCE, 1 dose, On Tue11/03/22 at 0800 Given 11/03/2022 8:12 AM EST 125 mg riTUXimab-pvvr 1,000 mg in NaCl 0.9% 640 mL (RUXIENCE) 1,000 mg, INTRAVENOUS, ONCE, 1 dose, On Tue11/03/22 at 0800, Approx Total Volume: mL EXP: Infuse at rate of 50 mg/hr. If no hypotension, increase rate every 30 minutes by 50 mg/hr to a maximum rate of 400 mg/hr. Refrigerate. Rate/Dose Change 11/03/2022 12:00 PM EST 256 mL/hr Rate/Dose Change 11/03/2022 11:35 AM EST 224 mL /hr Rate/Dose Change 11/03/2022 11:05 AM EST 192 mL /hr sodium chloride 0.9 % (flush) 10-20 mL (BD POSIFLUSH) 10-20 mL, INTRAVENOUS, NEEDED, Starting on Tue11/03/22 at 0736, Until Tue11/03/22 at 1614, See Administration Instructions, If no IVAD access, may place IV if needed for labs or possible treatment. Flush 10-20ml on IV start and as needed. D5W or LR may be used in place of NS for medication that are incompatible (i.e. with oxaliplatin). Given 11/03/2022 12:50 PM EST 10 mL Given 11/03/2022 8:09 AM EST 10 mL Reason for Referral Specialty Diagnoses / Procedures Referred By Ulises t Referred To Contact Dermatology Diagnoses Rash and nonspecific skin eruption Procedures CONSULT TO DERMATOLOGY OFFICE/OUTPATIENT [facility] 60 MINUTES Dorota Smith MD [address] [facility] [address] [place] [address] Referral ID Status Reason Start Date Expiration Date Visits Requested Visits Authorized [id number] Authorized PCP Requested Referral 09/14/2024 09/14/2025 1 1 Additional Source Comments INFORMATION SOURCE (unrecogn ized section and content) DATE CREATED AUTHOR 06/07/2018 [facility] DATE CREATED AUTHOR AUTHOR'S ORGANIZ ATION 04/02/2019 [facility] DATE CREATED AUTHOR AUTHOR'S ORGANIZ ATION 03/30/2020 [facility] DATE CREATED AUTHOR AUTHOR'S ORGANIZ ATION 08/05/2020 [facility] DATE CREATED AUTHOR AUTHOR'S ORGANIZ ATION 11/21/2020 [facility] DATE CREATED AUTHOR AUTHOR'S ORGANIZ ATION 09/18/2024 [facility] DATE CREATED AUTHOR AUTHOR'S ORGANIZ ATION 11/28/2024 [facility] DATE CREATED AUTHOR AUTHOR'S ORGANIZ ATION 02/27/2025 [facility] DATE CREATED AUTHOR AUTHOR'S ORGANIZ ATION 04/18/2025 [facility] (unrecognized sect ion and content) No Status Records FoundNo Status Records FoundNo Status Records FoundNo Status Records FoundNo Status Records FoundNo Status Records Found Reason for Visit (unrecogniz ed section and content) Reason Comments Infusion Rituximab Specialty Diagnoses / Procedures Referred By Ulises t Referred To Contact Hypertension and Nephrology / Kidney Medicine Diagnoses Rheumatoid arthritis without rheumatoid factor, right hand Rheumatoid arthritis without rheumatoid factor, left hand Rituximab 1,000mg per Staff Message Procedures INJ RUXIENCE, 10 MG IV RITUXIMAB Anthony Olivares MD [address] [place] [address] 1, Kidney Med Main Infusion Chair [address] [place] [address] Referral ID Status Reason Start Date Expiration Date V isits Requested Visits Authorized [id number] Authorized 03/31/2022 11/13/2022 99 99 Reason Comments Shortness of Breath Reason Comments Follow Up Reason Comments Infusion iv rituximab Reason Comments Radio Main J1 Specialty Diagnoses / Procedures Referred By Contac t Referred To Contact XR IMAGING Diagnoses Chronic pain of right knee Procedures XR KNEE LIMITED 2V AP/LAT RIGHT RADIOLOGIC EXAMINATION KNEE 1/2 VIEWS Luz Daniel MD [address] [facility] [address] [place] [address] Xr Imaging Referral ID Status Reason Start Date Expiration Date V isits Requested Visits Authorized [id number] Closed Auto-Generate d Referral 02/26/2022 03/28/2023 1 1 Reason Comments Rheumatoid Arthritis Reason Comments Follow Up RA- hands, stiff and swollen Reason Comments NO SHOW Reason Comments Patient Update Reason Comments Appointment Specialty Diagnoses / Procedures Referred By Contac t Referred To Contact Diagnoses 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 Leonie denney New Patient Goals (unrecognized section and content) Goals may be documented in a n alternate sectionGoals may be documented in an alternate sectionGoals may be documented in an alternate sectionGoals may be documented in an alternate sectionGoals may be documented in an alternate sectionGoals may be documented in an alternate sectionGoals may be documented in an alternate sectionGoals may be documented in an alternate sectionGoals may be documented in an alternate sectionGoals may be documented in an alternate sectionGoals may be documented in an alternate sectionGoals may be documented in an alternate sectionGoals may be documented in an alternate sectionGoals may be documented in an alternate sectionGoals may be documented in an alternate sectionGoals may be documented in an alternate sectionGoals may be documented in an alternate sectionGoals may be documented in an alternate sectionGoals may be documented in an alternate sectionGoals may be documented in an alternate sectionGoals may be documented in an alternate sectionGoals may be documented in an alternate sectionGoals may be documented in an alternate sectionGoals may be documented in an alternate sectionGoals may be documented in an alternate sectionGoals may be documented in an alternate sectionGoals may be documented in an alternate sectionGoals may be documented in an alternate sectionGoals may be documented in an alternate sectionGoals may be documented in an alternate sectionGoals may be documented in an alternate sectionGoals may be documented in an alternate sectionGoals may be documented in an alternate sectionGoals may be documented in an alternate sectionGoals may be documented in an alternate sectionGoals may be documented in an alternate sectionGoals may be documented in an alternate sectionGoals may be documented in an alternate sectionGoals may be documented in an alternate sectionGoals may be documented in an alternate sectionGoals may be documented in an alternate sectionGoals may be documented in an alternate sectionGoals may be documented in an alternate sectionGoals may be documented in an alternate sectionGoals may be documented in an alternate sectionGoals may be documented in an alternate sectionGoals may be documented in an alternate sectionGoals may be documented in an alternate sectionGoals may be documented in an alternate sectionGoals may be documented in an alternate sectionGoals may be documented in an alternate sectionGoals may be documented in an alternate sectionGoals may be documented in an alternate sectionGoals may be documented in an alternate sectionGoals may be documented in an alternate sectionGoals may be documented in an alternate sectionGoals may be documented in an alternate section Source Comments (unrecognize d section and content) In the event this informatio n is protected by the Federal Confidentiality of Alcohol and Drug Abuse Patient Records regulations: The Federal rules restrict any use of the information to criminally investigate or prosecute any alcohol or drug abuse patient.[facility] the event this information is protected by the Federal Confidentiality of Alcohol and Drug Abuse Patient Records regulations: The Federal rules restrict any use of the information to criminally investigate or prosecute any alcohol or drug abuse patient.[facility] HospitalIn the event this information is protected by the Federal Confidentiality of Alcohol and Drug Abuse Patient Records regulations: The Federal rules restrict any use of the information to criminally investigate or prosecute any alcohol or drug abuse patient.[facility] HospitalIn the event this information is protected by the Federal Confidentiality of Alcohol and Drug Abuse Patient Records regulations: The Federal rules restrict any use of the information to criminally investigate or prosecute any alcohol or drug abuse patient.[facility] HospitalIn the event this information is protected by the Federal Confidentiality of Alcohol and Drug Abuse Patient Records regulations: The Federal rules restrict any use of the information to criminally investigate or prosecute any alcohol or drug abuse patient.[facility] HospitalIn the event this information is protected by the Federal Confidentiality of Alcohol and Drug Abuse Patient Records regulations: The Federal rules restrict any use of the information to criminally investigate or prosecute any alcohol or drug abuse patient.[facility] HospitalIn the event this information is protected by the Federal Confidentiality of Alcohol and Drug Abuse Patient Records regulations: The Federal rules restrict any use of the information to criminally investigate or prosecute any alcohol or drug abuse patient.[facility] HospitalIn the event this information is protected by the Federal Confidentiality of Alcohol and Drug Abuse Patient Records regulations: The Federal rules restrict any use of the information to criminally investigate or prosecute any alcohol or drug abuse patient.[facility] HospitalIn the event this information is protected by the Federal Confidentiality of Alcohol and Drug Abuse Patient Records regulations: The Federal rules restrict any use of the information to criminally investigate or prosecute any alcohol or drug abuse patient.[facility] HospitalIn the event this information is protected by the Federal Confidentiality of Alcohol and Drug Abuse Patient Records regulations: The Federal rules restrict any use of the information to criminally investigate or prosecute any alcohol or drug abuse patient.[facility] HospitalIn the event this information is protected by the Federal Confidentiality of Alcohol and Drug Abuse Patient Records regulations: The Federal rules restrict any use of the information to criminally investigate or prosecute any alcohol or drug abuse patient.[facility] HospitalIn the event this information is protected by the Federal Confidentiality of Alcohol and Drug Abuse Patient Records regulations: The Federal rules restrict any use of the information to criminally investigate or prosecute any alcohol or drug abuse patient.[facility] HospitalIn the event this information is protected by the Federal Confidentiality of Alcohol and Drug Abuse Patient Records regulations: The Federal rules restrict any use of the information to criminally investigate or prosecute any alcohol or drug abuse patient.[facility] HospitalIn the event this information is protected by the Federal Confidentiality of Alcohol and Drug Abuse Patient Records regulations: The Federal rules restrict any use of the information to criminally investigate or prosecute any alcohol or drug abuse patient.[facility] HospitalIn the event this information is protected by the Federal Confidentiality of Alcohol and Drug Abuse Patient Records regulations: The Federal rules restrict any use of the information to criminally investigate or prosecute any alcohol or drug abuse patient.[facility] HospitalIn the event this information is protected by the Federal Confidentiality of Alcohol and Drug Abuse Patient Records regulations: The Federal rules restrict any use of the information to criminally investigate or prosecute any alcohol or drug abuse patient.[facility] HospitalIn the event this information is protected by the Federal Confidentiality of Alcohol and Drug Abuse Patient Records regulations: The Federal rules restrict any use of the information to criminally investigate or prosecute any alcohol or drug abuse patient.[facility] HospitalIn the event this information is protected by the Federal Confidentiality of Alcohol and Drug Abuse Patient Records regulations: The Federal rules restrict any use of the information to criminally investigate or prosecute any alcohol or drug abuse patient.[facility] HospitalIn the event this information is protected by the Federal Confidentiality of Alcohol and Drug Abuse Patient Records regulations: The Federal rules restrict any use of the information to criminally investigate or prosecute any alcohol or drug abuse patient.[facility] HospitalIn the event this information is protected by the Federal Confidentiality of Alcohol and Drug Abuse Patient Records regulations: The Federal rules restrict any use of the information to criminally investigate or prosecute any alcohol or drug abuse patient.[facility] HospitalIn the event this information is protected by the Federal Confidentiality of Alcohol and Drug Abuse Patient Records regulations: The Federal rules restrict any use of the information to criminally investigate or prosecute any alcohol or drug abuse patient.[facility] HospitalIn the event this information is protected by the Federal Confidentiality of Alcohol and Drug Abuse Patient Records regulations: The Federal rules restrict any use of the information to criminally investigate or prosecute any alcohol or drug abuse patient.[facility] HospitalIn the event this information is protected by the Federal Confidentiality of Alcohol and Drug Abuse Patient Records regulations: The Federal rules restrict any use of the information to criminally investigate or prosecute any alcohol or drug abuse patient.[facility] HospitalIn the event this information is protected by the Federal Confidentiality of Alcohol and Drug Abuse Patient Records regulations: The Federal rules restrict any use of the information to criminally investigate or prosecute any alcohol or drug abuse patient.[facility] HospitalIn the event this information is protected by the Federal Confidentiality of Alcohol and Drug Abuse Patient Records regulations: The Federal rules restrict any use of the information to criminally investigate or prosecute any alcohol or drug abuse patient.[facility] HospitalIn the event this information is protected by the Federal Confidentiality of Alcohol and Drug Abuse Patient Records regulations: The Federal rules restrict any use of the information to criminally investigate or prosecute any alcohol or drug abuse patient.[facility] HospitalIn the event this information is protected by the Federal Confidentiality of Alcohol and Drug Abuse Patient Records regulations: The Federal rules restrict any use of the information to criminally investigate or prosecute any alcohol or drug abuse patient.[facility] HospitalIn the event this information is protected by the Federal Confidentiality of Alcohol and Drug Abuse Patient Records regulations: The Federal rules restrict any use of the information to criminally investigate or prosecute any alcohol or drug abuse patient.[facility] HospitalIn the event this information is protected by the Federal Confidentiality of Alcohol and Drug Abuse Patient Records regulations: The Federal rules restrict any use of the information to criminally investigate or prosecute any alcohol or drug abuse patient.[facility] HospitalIn the event this information is protected by the Federal Confidentiality of Alcohol and Drug Abuse Patient Records regulations: The Federal rules restrict any use of the information to criminally investigate or prosecute any alcohol or drug abuse patient.[facility] HospitalIn the event this information is protected by the Federal Confidentiality of Alcohol and Drug Abuse Patient Records regulations: The Federal rules restrict any use of the information to criminally investigate or prosecute any alcohol or drug abuse patient.[facility] HospitalIn the event this information is protected by the Federal Confidentiality of Alcohol and Drug Abuse Patient Records regulations: The Federal rules restrict any use of the information to criminally investigate or prosecute any alcohol or drug abuse patient.[facility] Care Teams (unrecognized sec tion and content) Animal Caregiver Relationship Specialty Start Date End Date Elgin Bal MD [address] [place] [address] PCP - General [facility] 12/25/12 Anthony Olivares MD [address] [place] [address] Spray Mixer Nephrology 03/19/21 Anthony Olivares MD [address] [place] [address] Primary Staff Physician Nephrology 12/10/21 Animal Caregiver Relationship Specialty Start Date End Date Elgin Bal MD [address] [place] [address] PCP - General Family Practice 12/25/12 Anthony Olivares MD [address] [place] [address] Spray Mixer Nephrology 03/19/21 Anthony Olivares MD [address] [place] [address] Primary Staff Physician Nephrology 12/10/21 Animal Caregiver Relationship Specialty Start Date End Date Elgin Bal MD [address] [place] [address] PCP - General [facility] 12/25/12 Anthony Olivares MD [address] [place] [address] Spray Mixer Nephrology 03/19/21 Anthony Olivares MD [address] [place] [address] Primary Staff Physician Nephrology 12/10/21 Animal Caregiver Relationship Specialty Start Date End Date Elgin Bal MD [address] [place] [address] PCP - General Family Practice 12/25/12 Anthony Olivares MD [address] [place] [address] Spray Mixer Nephrology 03/19/21 Anthony Olivares MD [address] [place] [address] Primary Staff Physician Nephrology 12/10/21 Animal Caregiver Relationship Specialty Start Date End Date Elgin Bal MD [address] [place] [address] PCP - General Family Practice 12/25/12 Anthony Olivares MD [address] [place] [address] Spray Mixer Nephrology 03/19/21 Anthony Olivares MD [address] [place] [address] Primary Staff Physician Nephrology 12/10/21 Animal Caregiver Relationship Specialty Start Date End Date Elgin Bal MD [address] [place] [address] PCP - General Family Practice 12/25/12 Anthony Olivares MD [address] [place] [address] Spray Mixer Nephrology 03/19/21 Anthony Olivares MD [address] [place] [address] Primary Staff Physician Nephrology 12/10/21 Animal Caregiver Relationship Specialty Start Date End Date Elgin Bal MD [address] [place] [address] PCP - General Family Medicine 12/25/12 Anthony Oliavres MD [address] [place] [address] Spray Mixer Nephrology 03/19/21 Anthony Olivares MD [address] [place] [address] Primary Staff Physician Nephrology 12/10/21 Animal Caregiver Relationship Specialty Start Date End Date Elgin Bal MD [address] [place] [address] PCP - General Family Medicine 12/25/12 Anthony Olivares MD [address] [place] [address] Spray Mixer Nephrology 03/19/21 Anthony Olivares MD [address] [place] [address] Primary Staff Physician Nephrology 12/10/21 Animal Caregiver Relationship Specialty Start Date End Date Elgin Bal MD [address] [place] [address] PCP - General Family Medicine 12/25/12 Anthony Olivares MD [address] [place] [address] Spray Mixer Nephrology 03/19/21 Anthony Olivares MD [address] [place] [address] Primary Staff Physician Nephrology 12/10/21 Animal Caregiver Relationship Specialty Start Date End Date Elgin Bal MD [address] [place] [address] PCP - General Family Medicine 12/25/12 Anthony Olivares MD [address] [place] [address] Spray Mixer Nephrology 03/19/21 Anthony Olivares MD [address] [place] [address] Primary Staff Physician Nephrology 12/10/21 Team Status: Active Member Role Status Dates Dr. Elgin Bal MD Family Provider Active Dr. Elgin Bal MD Primary Care Provider Active Team Status: Inactive Member Role Status Dates Dr. Elgin Bal MD Primary Care Provider Active Alfredo Phipps Attending Provider Active Team Status: Inactive Member Role Status Dates Dr. Elgin Bal MD Primary Care Provider Active Adam Ferraro Attending Provider, Referring Provider Active Team Status: Inactive Member Role Status Dates Dr. Elgin Bal MD Primary Care Provider Active Adam Ferraro Attending Provider Active Team Status: Inactive Member Role Status Dates Dr. Elgin Bal MD Primary Care Provider Active Alfredo Phipps Attending Provider, Referring Provider Active Team Status: Active Member Role Status Dates Dr. Elgin Bal MD Primary Care Provider Active Adam Ferraro Attending Provider Active Team Status: Active Member Role Status Dates Dr. Elgin Bal MD Primary Care Provider Active Alfredo Phipps Attending Provider Active Team Status: Inactive Member Role Status Dates Dr. Elgin Bal MD Primary Care Provider Active Alfredo CHANDLER Attending Provider, Referring Provi tamara Active Team Status: Inactive Member Role Status Dates Dr. Elgin Bal MD Primary Care Provider Active Alfredo CHANDLER Attending Provider Active Team Status: Inactive Member Role Status Dates Dr. Elgin Bal MD Primary Care Provider Active Adam CHANDLER Attending Provider Active Team Status: Active Member Role Status Dates Dr. Elgin Bal MD Primary Care Provider Active Alfredo CHANDLER Attending Provider Active Team Status: Active Member Role Status Dates Dr. Elgin Bal MD Primary Care Provider Active Adam CHANDLER Attending Provider Active Team Status: Inactive Member Role Status Dates Dr. Elgin Bal MD Primary Care Provider Active Adam CHANDLER Attending Provider, Referring Prov ider Active Animal Caregiver Relationship Specialty Start Date End Date Elgin Bal MD [address] [place] [address] PCP - General Family Medicine 12/25/12 Anthony Olivares MD [address] [place] [address] Spray Mixer Nephrology 03/19/21 Anthony Olivares MD [address] [place], [place] [id number] Primary Staff Physician Nephrology 12/10/21 Team Status: Inactive Member Role Status Dates Dr. Elgin Bal MD Primary Care Provider Active Dr. Alfredo Phipps MD Attending Provider Active Team Status: Active Member Role Status Dates Dr. Elgin Bal MD Primary Care Provider Active Adam CHANDLER Attending Provider, Referring Prov ider Active Animal Caregiver Relationship Specialty Start Date End Date Elgin Bal MD [address] [place], [place] [address] PCP - General Family Medicine 12/25/12 Anthony Olivares MD [address] [place] [address] Spray Mixer Nephrology 03/19/21 Anthony Olivares MD [address] [place] [address] Primary Staff Physician Nephrology 12/10/21 Animal Caregiver Relationship Specialty Start Date End Date Elgin Bal MD [address] [place] [address] PCP - General Family Medicine 12/25/12 Anthony Olivares MD [address] [place], [place] [id number] Spray Mixer Nephrology 03/19/21 Anthony Olivares MD [address] [place], [place] [address] Primary Staff Physician Nephrology 12/10/21 Animal Caregiver Relationship Specialty Start Date End Date Alfredo Phipps MD [address] [facility] [address] [place] [address] PCP - General Internal Medicine 10/19/23 Anthony Olivares MD [address] [place] [address] Spray Mixer Nephrology 03/19/21 Anthony Olivares MD [address] [place] [address] Primary Staff Physician Nephrology 12/10/21 Animal Caregiver Relationship Specialty Start Date End Date Alfredo Phipps MD [address] [facility] [address] [place] [address] PCP - General Internal Medicine 10/19/23 Anthony Olivaers MD [address] [place] [address] Spray Mixer Nephrology 03/19/21 Anthony Olivares MD [address] [place] [address] Primary Staff Physician Nephrology 12/10/21 Animal Caregiver Relationship Specialty Start Date End Date Alfredo Phipps MD [address] [facility] [address] [place] [address] PCP - General Internal Medicine 10/19/23 Anthony Olivares MD [address] [place] [address] Spray Mixer Nephrology 03/19/21 Anthony Olivares MD [address] [place] [address] Primary Staff Physician Nephrology 12/10/21 Animal Caregiver Relationship Specialty Start Date End Date Alfredo Phipps MD [address] [place] [address] PCP - General Internal Medicine 10/19/23 Anthony Olivares MD [address] [place] [address] Spray Mixer Nephrology 03/19/21 Anthony Olivares MD [address] [place] [address] Primary Staff Physician Nephrology 12/10/21 Animal Caregiver Relationship Specialty Start Date End Date Alfredo Phipps MD [address] [facility] [address] [place] [address] PCP - General Internal Medicine 10/19/23 Anthony Olivares MD [address] [place] [address] Spray Mixer Nephrology 03/19/21 Anthony Olivares MD [address] [place] [address] Primary Staff Physician Nephrology 12/10/21 Animal Caregiver Relationship Specialty Start Date End Date Alfredo Phipps MD [address] [facility] [address] [place] [address] PCP - General Internal Medicine 10/19/23 Anthony Olivares MD [address] [place] [address] Spray Mixer Nephrology 03/19/21 Anthony Olivares MD [address] [place] [address] Primary Staff Physician Nephrology 12/10/21 Animal Caregiver Relationship Specialty Start Date End Date Alfredo Phipps MD [address] [place] [address] PCP - General Internal Medicine 10/19/23 Anthony Olivares MD [address] [place] [address] Spr[employer] Mixer Nephrology 03/19/21 Anthony Olivares MD [address] [place] [address] Primary Staff Physician Nephrology 12/10/21 Animal Caregiver Relationship Specialty Start Date End Date Alfredo Phipps MD [address] [place] [address] PCP - General Internal Medicine 10/19/23 Anthony Olivares MD [address] [place] [address] Spray Mixer Nephrology 03/19/21 Anthony Olivares MD [address] [place] [address] Primary Staff Physician Nephrology 12/10/21 Animal Caregiver Relationship Specialty Start Date End Date Alfredo Phipps MD [address] [place] [address] PCP - General Internal Medicine 10/19/23 Anthony Olivares MD [address] [place] [address] Spray Mixer Nephrology 03/19/21 Anthony Olivares MD [address] [place] [address] Primary Staff Physician Nephrology 12/10/21 Animal Caregiver Relationship Specialty Start Date End Date Alfredo Phipps MD [address] [facility] [address] [place] [address] PCP - General Internal Medicine 10/19/23 Anthony Olivares MD [address] [place] [address] Spray Mixer Nephrology 03/19/21 Anthony Olivares MD [address] [place] [address] Primary Staff Physician Nephrology 12/10/21 Animal Caregiver Relationship Specialty Start Date End Date Alfredo Phipps MD [address] [facility] [address] [place] [address] PCP - General Internal Medicine 10/19/23 Anthony Olivares MD [address] [place] [address] Spray Mixer Nephrology 03/19/21 Anthony Olivares MD [address] [place] [address] Primary Staff Physician Nephrology 12/10/21 Animal Caregiver Relationship Specialty Start Date End Date Alfredo Phipps MD [address] [facility] [address] [place] [address] PCP - General Internal Medicine 10/19/23 Anthony Olivares MD [address] [place] [address] Spray Mixer Nephrology 03/19/21 Anthony Olivares MD [address] [place] [address] Primary Staff Physician Nephrology 12/10/21 Animal Caregiver Relationship Specialty Start Date End Date Alfredo Phipps MD [address] [facility] [address] [place] [address] PCP - General Internal Medicine 10/19/23 Anthony Olivares MD [address] [place] [address] Spray Mixer Nephrology 03/19/21 Anthony Olivares MD [address] [place] [address] Primary Staff Physician Nephrology 12/10/21 Animal Caregiver Relationship Specialty Start Date End Date Alfredo Phipps MD [address] [facility] [address] [place] [address] PCP - General Internal Medicine 10/19/23 Anthony Olivares MD [address] [place] [address] Spray Mixer Nephrology 03/19/21 Anthony Olivares MD [address] [place] [address] Primary Staff Physician Nephrology 12/10/21 Team Status: Inactive Member Role Status Dates Dr. Elgin Bal MD Primary Care Provider Active Start: September 27, 2024 End: September 27, 2024 Adam CHANDLER Attending Provider Active St art: September 27, 2024 End: September 27, 2024 Team Status: Inactive Member Role Status Dates Dr. Elgin Bal MD Primary Care Provider Active Start: November 15, 2024 End: November 15, 2024 Adam CHANDLER Attending Provider Active St art: November 15, 2024 End: November 15, 2024 Team Status: Inactive Member Role Status Dates Dr. Elgin Bal MD Primary Care Provider Active Start: November 27, 2024 End: November 27, 2024 Adam CHANDLER Attending Provider Active St art: November 27, 2024 End: November 27, 2024 Team Status: Inactive Member Role Status Dates Dr. Elgin Bal MD Primary Care Provider Active Start: December 28, 2024 End: December 28, 2024 Adam CHANDLER Attending Provider Active St art: December 28, 2024 End: December 28, 2024 Team Status: Active Member Role Status Dates Dr. Elgin Bal MD Primary Care Provider Active Start: January 02, 2025 Adam CHANDLER Attending Provider Active St art: January 02, 2025 Team Status: Active Member Role Status Dates Dr. Elgin Bal MD Primary Care Provider Active Start: January 03, 2025 Adam CHANDLER Attending Provider Active St art: January 03, 2025 Team Status: Inactive Member Role Status Dates Dr. Elgin Bal MD Primary Care Provider Active Start: January 02, 2025 End: January 02, 2025 Adam CHANDLER Attending Provider Active St art: January 02, 2025 End: January 02, 2025 Team Status: Inactive Member Role Status Dates Dr. Elgin Bal MD Primary Care Provider Active Start: January 03, 2025 End: January 03, 2025 Adam CHANDLER Attending Provider Active St art: January 03, 2025 End: January 03, 2025 Team Status: Inactive Member Role Status Dates Dr. Elgin Bal MD Primary Care Provider Active Start: January 25, 2025 End: January 25, 2025 Adam CHANDLER Attending Provider Active St art: January 25, 2025 End: January 25, 2025 Team Status: Active Member Role Status Dates Dr. Elgin Bal MD Primary Care Provider Active Start: January 30, 2025 Adam CHANDLER Attending Provider Active St art: January 30, 2025 Team Status: Active Member Role Status Dates Dr. Elgin Bal MD Primary Care Provider Active Start: February 06, 2025 Alfredo CHANDLER Attending Provider Active Sta rt: February 06, 2025 Team Status: Active Member Role Status Dates Dr. Elgin Bal MD Primary Care Provider Active Start: February 11, 2025 Alfredo CHANDLER Attending Provider Active Sta rt: February 11, 2025 Team Status: Inactive Member Role Status Dates Dr. Elgin Bal MD Primary Care Provider Active Start: January 30, 2025 End: January 30, 2025 Adam CHANDLER Attending Provider Active St art: January 30, 2025 End: January 30, 2025 Animal Caregiver Relationship Specialty Start Date End Date Alfredo Phipps MD [address] [facility] [address] [place] [address] PCP - General Internal Medicine 10/19/23 Anthony Olivares MD [address] [place] [address] Spray Mixer Nephrology 03/19/21 Anthony Olivares MD [address] [place] [address] Primary Staff Physician Nephrology 12/10/21 Team Status: Inactive Member Role Status Dates Dr. Elgin Bal MD Primary Care Provider Active Start: February 11, 2025 End: February 11, 2025 Alfredo CHANDLER Attending Provider Active Sta rt: February 11, 2025 End: February 11, 2025 Team Status: Active Member Role Status Dates Dr. Elgin Bal MD Primary Care Provider Active Start: February 25, 2025 Adam CHANDLER Attending Provider Active St art: February 25, 2025 Team Status: Active Member Role Status Dates Dr. Elgin Bal MD Primary Care Provider Active Start: February 27, 2025 Alfredo CHANDLER Attending Provider Active Sta rt: February 27, 2025 Team Status: Inactive Member Role Status Dates Dr. Elgin Bal MD Primary Care Provider Active Start: February 06, 2025 End: February 06, 2025 Alfredo CHANDLER Attending Provider Active Sta rt: February 06, 2025 End: February 06, 2025 Team Status: Inactive Member Role Status Dates Dr. Elgin Bal MD Primary Care Provider Active Start: February 27, 2025 End: February 27, 2025 Alfredo CHANDLER Attending Provider Active Sta rt: February 27, 2025 End: February 27, 2025 Team Status: Active Member Role Status Dates Dr. Elgin Bal MD Primary Care Provider Active Start: March 04, 2025 Adam CHANDLER Attending Provider Active St art: March 04, 2025 Team Status: Inactive Member Role Status Dates Dr. Elgin Bal MD Primary Care Provider Active Start: February 25, 2025 End: February 25, 2025 Adam CHANDLER Attending Provider Active St art: February 25, 2025 End: February 25, 2025 Team Status: Inactive Member Role Status Dates Dr. Elgin Bal MD Primary Care Provider Active Start: March 04, 2025 End: March 04, 2025 Adam CHANDLER Attending Provider Active St art: March 04, 2025 End: March 04, 2025 Team Status: Active Member Role Status Dates Dr. Elgin Bal MD Primary Care Provider Active Start: March 27, 2025 Alfredo CHANDLER Attending Provider Active Sta rt: March 27, 2025 Inactive Administered Medications - up to 3 most recent administrations Administered Medications (un recognized section and content) Medication Order MAR Action Action Date Dose Rate Site acetaminophen 1,000 mg tab(s) (TYLENOL) 1,000 mg, ORAL, ONCE, 1 dose, [place] 01/26/24 at 0730 Given 01/26/2024 7:43 AM EDT 1,000 mg diphenhydrAMINE 50 mg capsule (BENADRYL) 50 mg, ORAL, ONCE, 1 dose, [place] 01/26/24 at 0730 Given 01/26/2024 7:43 AM EDT 50 mg methylPREDNISolone sod succinate(PF) 125 mg injection (SOLU-Medrol) 125 mg, INTRAVENOUS, ONCE, 1 dose, [place] 01/26/24 at 0730 Given 01/26/2024 7:45 AM EDT 125 mg riTUXimab-pvvr 1,000 mg in NaCl 0.9% 640 mL (RUXIENCE) 1,000 mg, INTRAVENOUS, ONCE, 1 dose, [place] 01/26/24 at 0730, EXP: Refrigerate. Rate/Dose Change 01/26/2024 11:31 AM EDT 256 mL/hr Rate/Dose Change 01/26/2024 11:30 AM EDT Rate/Dose Change 01/26/2024 11:00 AM EDT 224 mL /hr FOR RECORDS PERTAINING TO PATIENTS WHO ARE OR HAVE BEEN ENROLLED IN A CHEMICAL DEPENDENCY/SUBSTANCEABUSE PROGRAM, SOME INFORMATION MAY BE OMITTED. This clinical summary was aggregated from multiple sources. Caution should be exercised in using it in the provision of clinical care. This summary normalizes information from multiple sources, and as a consequence, information in this document may materially change the coding, format and clinical context of patient data. In addition, data may be omitted in some cases. CLINICAL DECISIONS SHOULD BE BASED ON THE PRIMARY CLINICAL RECORDS. [facility]. provides no warranty or guarantee of the accuracy or completeness of information in this document.
[2025-04-24 08:24] LABS: Absolute Lymphocyte Count 2.17 X10^3/uL (0.83-4.51); Absolute Neutrophil Count 6.4 X10^3/uL (2.0-7.7); Basophil# 0.11 X10^3/uL; Basophil% 1.1 % (0-1); Eosinophil# 0.53 X10^3/uL; Eosinophils% 5.1 % (0-5); Hematocrit 38.2 % (40-54); Hemoglobin 12.7 g/dL (13.0-16.5); Lymphocyte # 2.17 X10^3/ul (0.83-4.51); Mean Corp Hgb Conc 33.2 g/dL (32-36); Mean Corpuscular Hgb 30.4 pg (27.0-32.0); Mean Corpuscular Volume 91.4 fL (80-94); Mean Platelet Vol. 9.4 fl (6.2-12.0); Monocyte# 1.02 X10^3/uL; Monocyte% 9.9 % (0-10); NRBC Flagged by Analyzer 0 % (0-5); Neutrophil # 6.43 X10^3/uL (2.7-7.7); Neutrophil % 62.2 % (47-70); Platelet Count 245 K/mm3 (150-450); RBC Distribution Width CV 13.1 % (11.6-14.6); RBC Distribution Width SD 43.9 fl (35.1-43.9); Red Blood Count 4.18 M/mm3 (4.6-6.2); White Blood Count 10.3 K/mm3 (4.4-11.0)
[2025-04-24 08:41] LABS: ALB/GLOB Ratio 1.5 RATIO (0.9-2.4); AST(SGOT) 16 U/L (<=37); Alanine Aminotransfer ALT/SGPT 11 U/L (<=46); Albumin, Serum 3.5 g/dL (3.4-4.8); Alkaline Phosphatase 76 U/L (40-129); Anion Gap 12 (5-15); BUN 25 mg/dL (4-19); BUN/Creat Ratio 10.5 RATIO (10-20); Calcium,Total 9.3 mg/dL (7.6-11.0); Carbon Dioxide 21.9 mmol/L (21.0-32.0); Chloride 107 mmol/L (98-108); Creatinine, Serum 2.41 mg/dL (0.70-1.20); EST Glomerular Filtration Rate 30 (>60); Globulin 2.3 g/dL (2.2-4.2); Glucose 123 mg/dL (70-99); Phosphorus 4.8 mg/dL (2.7-4.5); Potassium 4.6 mmol/L (3.3-5.1); Protein, Total 5.9 g/dL (5.9-8.4); Sodium Level 140 mmol/L (133-145); Total Bilirubin 0.16 mg/dL (0.00-1.30)
== END ==
LOC: OLS.SANC 05:00
PROVIDERS: PCP Family Medicine; Visit Provider Family Medicine
DX: D64.9 Anemia, unspecified (principal); I10 Essential (primary) hypertension; E78.5 Hyperlipidemia, unspecified; Z79.899 Other long term (current) drug therapy
CPT/HCPCS: 36415; 80053; 80178; 84100; 85025

== ENCOUNTER → 2025-04-26 | Outpatient (REF) | payer MEDICARE, MEDICAID, SELFPAY ==
--- OUTSIDE RECORDS SUMMARY | 2025-04-26 04:39 | XMS RPT_ITS | CCD ---
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 Eisenberg Primary Care Provider [phone] Adam Marley Attending Provider Unavailterra Bal MD, Dr. Eisenberg Primary Care Provider Adam Marley Attending Provider Unavaila catracho CHANDLER, Alfredo Attending Provider Unavailab ANTHONY Ragland Referring Unavailable KATSAROS, ALFREDO [facility] Unavaila ANTHONY Shell Referring Unavailable KATSAROS, ALFREDO SPICER Primary Care UnavailANTHONY Aleman Referring Unavailable KATSAROS, ALFREDO [facility] Unavailterra Bal MD, Dr. Eisenberg Primary Care Provider Adam Marley Attending Provider UnavailDr. [place] Russell MD Primary Care Provider Adam Marley Attending Provider Unavailterra Bal [place] Primary Care Unavailable Gunning RAMESH, Adam Attending Unavailable Gunning RAMESH, Adam Attending Unavailable Borden, [facility] Primary Care Unavailable Gunning RAMESH, Adam Attending Unavailable Borden, [facility] Primary Care Unavailable Katsaros Alfredo CHANDLER Attending Unavailable Borden, [facility] Primary Care Unavailable Katsaros Alfredo CHANDLER Attending Unavailable Borden, [facility] Primary Care Unavailable Borden, [facility] Primary Care Unavailable Gunning RAMESH, Adam Attending Unavailable Gunning RAMESH, Adam Attending Unavailable Borden, [facility] Primary Care Unavailable Gunning RAMESH, Adam Attending Unavailable Mally, [facility] Primary Care Unavailable Katsaros RAMESH, Alfredo Attending Unavailable Borden, [facility] Primary Care Unavailable Gunning RAMESH, Adam Attending Unavailable Wandaning RAMESH, Adam Referring Unavailable Borden, [facility] Primary Care Unavailable Gunning RAMESH, Adam Attending Unavailable Borden, [facility] Primary Care Unavailable Gunning RAMESH, Adam Attending Unavailable Mally, [facility] Primary Care Unavailable Gunning RAMESH, Adam Referring Unavailable Borden, [facility] Primary Care Unavailable Katsaros RAMESH, Alfredo Attending Unavailable Mally, [facility] Primary Care Unavailable Katsaros RAMESH, Alfredo Attending Unavailable Gunning OLS, Adam Attending Unavailable Borden, [facility] Primary Care Unavailable Gunning OLS, Adam Attending Unavailable Borden, [facility] Primary Care Unavailable Gunning OLS, Adam Attending Unavailable Mally, [facility] Primary Care Unavailable Gunning OLS, Adam Attending Unavailable Mally, [facility] Primary Care Unavailable Gunning OLS, Adam Attending Unavailable Borden, [facility] Primary Care Unavailable Katsaros OLS, Peter Attending Unavailable Borden, [facility] Primary Care Unavailable Gunning OLS, Adam Attending Unavailable Borden, [facility] Primary Care Unavailable Katsaros OLS, Peter Attending Unavailable Mally, [facility] Primary Care Unavailable Gunning OLS, Adam Attending Unavailable Borden, [facility] Primary Care Unavailable Gunning OLS, Adam Attending Unavailable Borden, [facility] Primary Care Unavailable Gunning OLS, Adam Attending Unavailable Borden, [facility] Primary Care Unavailable Mally, [facility] Primary Care Unavailable Gunning OLS, Adam Attending Unavailable Gunning OLS, Adam Attending Unavailable [place], [facility] Primary Care Unavailable Allergies Allergy Classification Reported Allergen(s) Allergy Type Date of Onset Reaction(s) Facility Anti-Epileptic Agents (1 source) lamoTRIgine Drug Allergy 8 [facility] Work Phone: Bee pollen (1 source) Bee pollen Drug Allergy 0 Other: See Comments [facility] Corticosteroids (1 source) fluticasone Drug Allergy 3 Other: See Comments [facility] Work Phone: OLANZapine (1 source) OLANZapine Drug Allergy 7 [facility] (20 sources) Bee pollen; Translations: [BEE POLLEN] Drug Allergy 0 Other: See Comments [place], [place] (20 sources) fluticasone Drug Allergy 0 [place] (20 sources) lamoTRIgine; Translations: [LAMOTRIGINE] Drug Allergy 8 [place], [place] (20 sources) OLANZapine; Translations: [OLANZAPINE] Drug Allergy 7 [place] (20 sources) fluticasone; Translations: [FLUTICASONE PROPIONATE] Drug Allergy 3 Other: See Comments [facility] Work Phone: (1 source) fluticasone Drug Allergy 0 [facility] (1 source) lamoTRIgine Drug Allergy 9 [facility] (1 source) OLANZapine Drug Allergy 0 [facility] Medications Current Medications Medication Drug Class(es) [...] th every 8 hours as needed. 500mg [id number] actuat albuterol 0.09 mg/actuat metered dose [...] Start: 02-14-2020 take 1 capsule by mo [facility] once daily Cholecalciferol (Vitamin D3) 2,000 UNIT [...] 20 mg/ml oral suspension (1 source) Uncompetitive P-ebbrqj-I-aspartate Receptor Antagonist, Sigma-1 Agonist Start: 10-28-2020 take 5 mL by mouth every four hours as needed for cough 5 mL, Oral, EVERY 4 HOURS PRN, Cough, Starting Tue10/28/20 at 1936 docosahexaenoic acid 120 mg / eicosapentaenoic acid 180 mg oral capsule (1 source) take 1 capsule by mouth once daily Towanda-3 1000 MG CAPS Take 1 capsule by [...] 14, 2020 12:00am take 3 tablets by [facility] once daily furosemide (LASIX) 20 MG tablet [...] Active Start: 03-06-2021 take 1 capsule by [facility] once daily lithium carbonate (ESKALITH) 300 mg capsule Take 300 mg by mouth once daily. 03/06/2021 Active Start: 10-28-2020 take 300 mg by mouth once tommy y 300 mg, Oral, NIGHTLY, First dose on Tue10/28/20 at 2100 Maintain adequate fluid and sodium intake Start: 04-02-2018 take 1 tablet by [facility] once daily at bedtime [place] Carbonate 300 MG tablet extended release Active [...] th once daily. omega-3 acid ethyl esters (mcfp) 1000 mg oral capsule (1 source) Start: 10-28-2020 take 1 capsule by mouth once daily 1 capsule, Oral, DAILY, First dose on Tue10/28/20 at 2000 Towanda-3 Fatty Acids-Fish Oil (20 sources) Start: 02-14-2020 Towanda-3 Fatty Acids-Fish Oil Active 1 EACH PO DAILY February 14, 2020 10:03am Start: 02-14-2020 Towanda-3 Fatty Acids-Fish Oil Active 1 EACH PO DAILY February 13, 2020 11:00pm Start: 02-14-2020 Towanda-3 Fatty Acids-Fish Oil Active 1 EACH PO DAILY February 14, 2020 12:00am Towanda-3 Fatty Acids-Fish Oil 1 EACH capsule (10 sources) Start: 02-14-2020 Towanda-3 Fatty Acids-Fish Oil 1 EACH capsule Active 1 NMA PO DAILY February 14, 2020 12:00am Start: 02-14-2020 Towanda-3 Fatty Acids-Fish Oil 1 EACH capsule Active 1 NMA PO DAILY February 13, 2020 11:00pm Paecx-0-VMY-EPA-Fish Oil 1,0 00 mg (120 mg-180 mg) cap (20 sources) take 1 capsule by mouth once daily Zxmak-1-ZJP-EPA-Fish Oil 1,000 mg (120 mg-180 mg) cap Take 1 capsule by mouth once daily. Active take 1 capsule by mouth once berna ly Vzsqn-4-TCW-EPA-Fish Oil 1,000 mg (120 mg- 180 mg) cap Take 1 capsule by mouth once daily. 0 Active Comment on above: Take 1 capsule by mo [facility] once daily. omeprazole 40 mg delayed release [...] Substituted for Omeprazole (PRILOSEC). polyethylene glycol [id number] mg powder for oral solution (1 source) [...] tablet 650 mg take 1 tablet by dnoovan every eight hours as needed acetaminophen (TYLENOL) 500 mg tablet Take 500 mg by mouth every 8 hours as needed for pain. Active Comment on above: Take 2 tablets by [facility] as directed. prior to Rituximab infusion. cefTRIAXone [...] Comment on above: Take 1 capsule by [facility] as directed. prior to Rituximab infusion. 0.3 [...] ously as directed. prior to Rituximab infusion. Ldbcn-1-XIV-EPA-Fish Oil (FISH OIL) 1,000 mg (120 mg-180 mg) cap (6 sources) take 1 capsule by mouth once daily Yicxw-2-GOY-EPA-Fish Oil (FISH OIL) 1,000 mg (120 mg-180 [...] 03-02-2019 Episodic Other aftercare (3 sources) Other rodent exterminator (current) drug therapy; Translations: [Other custodial (current) drug therapy] Onset: 11-14-2019 Episodic Other [...] Lithiumon 04-01-2025 LI 0.64 mmol/L Normal 0.60-1.20 [facility] Comment on above: Order Comment: 111.2 Performed By: #### L [id number], L500.4050, L100.0100 #### [facility] [address] [place], [place], [address] Serum or plasma uric acid me asurement (mass/volume)Ordered By: Alfredo Phipps on 03-27-2025 Urate [Mass/Vol] 6.5 mg/dL 3.5-7.2 [facility] Comment on above: The drugs N-Acetylcy steine and Metamizole may falsely depress this assay. Uric Acidon 03-27-2025 URIC 6.5 mg/dL Normal 3.5-7.2 [facility] Comment on above: Order Comment: 111.2 Result Comment: The drugs N-Acetylcysteine and Metamizole may falsely depress this assay. Performed By: #### L [id number] #### [facility] [address] [place], [place], [address] Microalb:Creat Ratio,Random URon 03-05-2025 Creatinine [Mass/Vol] 72.80 mg/dL Normal 39.00- 259. 00 [facility] Comment on above: Performed By: #### L [id number] #### [facility] [address] [place], [address] MALB:CREAT UNABLE TO CALCULATE Normal [facility] Comment on above: Performed By: #### L [id number] #### [facility] [address] [place], [address] MICROALBUMIN,UR < 12.0 Normal NO RANGE EST. [facility] Comment on above: Performed By: #### L [id number] #### [facility] [address] [place], [address] Microalbumin/creat ratio urO rdered By: Adam Ferraro on 03-04-2025 Urine microalbumin/creatinine ratio measurement UNABLE TO CALCULATE mg/g CRE [facility] Random urine creatinine you urement (mass/volume)Ordered By: Adam Ferraro on 03-04-2025 Creatinine Unsp time (U) [Mass/Vol] 72.80 mg/dL 39.00-259. 00 [facility] Urine albumin measurement wi detection limit of 20 mg/L or less (mass/volume)Ordered By: Adam Ferraro on 03-04-2025 Albumin DL <= 20 mg/L (U) [Mass/Vol] < 12.0 mg/L NO RANGE EST. [facility] Absolute lymphocyte countOrd ered By: Alfredo Phipps on 02-27-2025 Lymphocytes Auto (Unsp spec) [#/Vol] 1.42 10*3/uL 0.83-4.51 [facility] Absolute neutrophil countOrd ered By: Alfredo Phipps on 02-27-2025 Neutrophils (Bld) [#/Vol] 17.7 10*3/uL High 2.0-7.7 [facility] Anion gap in Serum or Plasma Ordered By: Alfredo Phipps on 02-27-2025 Anion gap [Moles/Vol] 12 mmol/L 5-15 [facility] Automated lymphocyte count a s percentage of total leukocytesOrdered By: Alfredo Phipps on 02-27-2025 Lymphocytes/100 WBC Auto (Unsp spec) 6.9 % Low 19-41 [facility] BUN/creatinine ratioOrdered By: Alfredo Phipps on 02-27-2025 Urea nitrogen/Creatinine [Mass ratio] 12.7 mg/mg 10-20 [facility] Basophil percentageOrdered B y: Alfredo Phipps on 02-27-2025 Basophils/100 WBC (Bld) 0.2 % 0-1 [facility] Bilirubin directOrdered By: Alfredo Phipps on 02-27-2025 Bilirubin.direct [Mass/Vol] 0.10 mg/dL 0.00-0.30 [facility] Bilirubin, Directon 02-28-20 25 Bilirubin.direct [Mass/Vol] 0.10 mg/dL Normal 0.00-0.30 [facility] Comment on above: Order Comment: 111.2 Performed By: #### L [id number] #### [facility] [address] [place], [address] Bilirubin, totalOrdered By: Alfredo Phipps on 02-27-2025 Bilirubin [Mass/Vol] 0.19 mg/dL 0.00-1.30 [facility] CBC W/Diff, Automatedon 02-12 Absolute Lymph 1.42 X10 3/uL Normal 0.83-4.51 [facility] Comment on above: Order Comment: 111.2 Performed By: #### L [id number] #### [facility] [address] [place], [address] Absolute Neut 17.7 X10 3/uL High 2.0-7.7 [facility] Comment on above: Order Comment: 111.2 Performed By: #### L [id number] #### [facility] [address] [place], [address] Basophils/100 WBC (Bld) 0.2 % Normal 0-1 [facility] Comment on above: Order Comment: 111.2 Performed By: #### L [id number] #### [facility] [address] [place], [address] Eosinophils/100 WBC (Bld) 0.0 % Normal 0-5 [facility] Comment on above: Order Comment: 111.2 Performed By: #### L [id number] #### [facility] [address] [place], [address] Erythrocyte distribution width (RBC) [Ratio] 13.3 % Normal 11.6-14.6 [facility] Comment on above: Order Comment: 111.2 Performed By: #### L [id number] #### [facility] [address] [place], [address] Hematocrit (Bld) [Volume fraction] 39.0 % Low 40-54 [facility] Comment on above: Order Comment: 111.2 Performed By: #### L [id number] #### [facility] [address] [place], [address] Hemoglobin (Bld) [Mass/Vol] 13.1 g/dL Normal 13.0-16.5 [facility] Comment on above: Order Comment: 111.2 Performed By: #### L [id number] #### [facility] [address] [place], [address] IG% 0.900 Normal 0.0-0.9 [facility] Comment on above: Order Comment: 111.2 Result Comment: IG% - Immature Granulocytes (promyelocytes, myelocytes and metamyelocytes) > 1% indicates that a LEFT SHIFT is Present. Performed By: #### L [id number] #### [facility] [address] [place], [address] Lymphocytes/100 WBC (Bld) 6.9 % Low 19-41 [facility] Comment on above: Order Comment: 111.2 Performed By: #### L [id number] #### [facility] [address] [place], [address] MCH (RBC) [Entitic mass] 30.1 pg Normal 27.0-32.0 [facility] Comment on above: Order Comment: 111.2 Performed By: #### L [id number] #### [facility] [address] [place], [address] MCHC (RBC) [Mass/Vol] 33.6 g/dL Normal 32-36 [facility] Comment on above: Order Comment: 111.2 Performed By: #### L [id number] #### [facility] [address] [place], [address] MCV (RBC) [Entitic vol] 89.7 fL Normal 80-94 [facility] Comment on above: Order Comment: 111.2 Performed By: #### L [id number] #### [facility] [address] [place], [address] Monocytes/100 WBC (Bld) 6.4 % Normal 0-10 [facility] Comment on above: Order Comment: 111.2 Performed By: #### L [id number] #### [facility] [address] [place], [address] Neutrophils/100 WBC (Bld) 85.6 % High 47-70 [facility] Comment on above: Order Comment: 111.2 Performed By: #### L [id number] #### [facility] [address] [place], [address] Nucleated RBC (Bld) [#/Vol] 0 10*3/uL Normal 0-5 [facility] Comment on above: Order Comment: 111.2 Performed By: #### L [id number] #### [facility] [address] [place], [address] Platelet mean volume (Bld) [Entitic vol] 9.3 fL Normal 6.2-12.0 [facility] Comment on above: Order Comment: 111.2 Performed By: #### L [id number] #### [facility] [address] [place], [address] Platelets (Bld) [#/Vol] 274 10*3/uL Normal 150-450 [facility] Comment on above: Order Comment: 111.2 Performed By: #### L [id number] #### [facility] [address] [place], [address] RBC (Bld) [#/Vol] 4.35 10*6/uL Low 4.6-6.2 [facility] Comment on above: Order Comment: 111.2 Performed By: #### L [id number] #### [facility] [address] [place], [address] RDW SD 43.8 fl Normal 35.1-43.9 [facility] Comment on above: Order Comment: 111.2 Performed By: #### L [id number] #### [facility] [address] [place], [address] WBC (Bld) [#/Vol] 20.6 10*3/uL High 4.4-11.0 [facility] Comment on above: Order Comment: 111.2 Performed By: #### L [id number] #### [facility] [address] [place], [address] Carbon dioxide, total [Moles /volume] in Central venous bloodOrdered By: Alfredo Phipps on 02-27-2025 CO2 [Moles/Vol] 20.5 mmol/L Low 21.0-32.0 [facility] Chloride assayOrdered By: Chan Fiore on 02-27-2025 Chloride [Moles/Vol] 105 mmol/L 98-108 [facility] Comprehensive Metabolic Prof ilon 02-27-2025 Albumin [Mass/Vol] 3.9 g/dL Normal 3.4-4.8 [facility] Comment on above: Order Comment: 111.2 Performed By: #### L [id number] #### [facility] [address] [place], [address] Albumin/Globulin [Mass ratio] 1.6 {ratio} Normal 0.9-2.4 [facility] Comment on above: Order Comment: 111.2 Performed By: #### L [id number] #### [facility] [address] [place], [address] ALK PHOS 66 U/L Normal 40-129 [facility] Comment on above: Order Comment: 111.2 Performed By: #### L [id number] #### [facility] [address] [place], [address] ALT [Catalytic activity/Vol] 13 U/L Normal <=46 [facility] Comment on above: Order Comment: 111.2 Performed By: #### L [id number] #### [facility] [address] [place], [address] AST [Catalytic activity/Vol] 11 U/L Normal <=37 [facility] Comment on above: Order Comment: 111.2 Performed By: #### L [id number] #### [facility] [address] [place], [address] Bilirubin [Mass/Vol] 0.19 mg/dL Normal 0.00-1.30 [facility] Comment on above: Order Comment: 111.2 Performed By: #### L [id number] #### [facility] [address] [place], [address] BUN/CRE 12.7 RATIO Normal 10-20 [facility] Comment on above: Order Comment: 111.2 Performed By: #### L [id number] #### [facility] [address] [place], [address] Calcium [Mass/Vol] 9.8 mg/dL Normal 7.6-11.0 [facility] Comment on above: Order Comment: 111.2 Performed By: #### L [id number] #### [facility] [address] [place], [address] Chloride [Moles/Vol] 105 mmol/L Normal 98-108 [facility] Comment on above: Order Comment: 111.2 Performed By: #### L [id number] #### [facility] [address] [place], [address] CO2 [Moles/Vol] 20.5 mmol/L Low 21.0-32.0 [facility] Comment on above: Order Comment: 111.2 Performed By: #### L [id number] #### [facility] [address] [place], [address] Creatinine [Mass/Vol] 2.32 mg/dL High 0.70-1.20 [facility] Comment on above: Order Comment: 111.2 Performed By: #### L [id number] #### [facility] [address] [place], [address] GAP 12 Normal 5-15 [facility] Comment on above: Order Comment: 111.2 Performed By: #### L [id number] #### [facility] [address] [place], [address] GFR/1.73 sq M.predicted among non-blacks MDRD (S/P/Bld) [Vol rate/Area] 31 mL/min/{1.73_m2} Low >60 [facility] Comment on above: Order Comment: 111.2 Result Comment: mL/m in/1.73m2 CKD-EPI Creatinine Equation (2020) Performed By: #### L [id number] #### [facility] [address] [place], [address] Globulin (S) [Mass/Vol] 2.4 g/dL Normal 2.2-4.2 [facility] Comment on above: Order Comment: 111.2 Performed By: #### L [id number] #### [facility] [address] [place], [address] Glucose [Mass/Vol] 134 mg/dL High 70-99 [facility] Comment on above: Order Comment: 111.2 Performed By: #### L [id number] #### [facility] [address] [place], [address] Potassium [Moles/Vol] 4.4 mmol/L Normal 3.3-5.1 [facility] Comment on above: Order Comment: 111.2 Performed By: #### L [id number] #### [facility] [address] [place], [address] Sodium [Moles/Vol] 138 mmol/L Normal 133-145 [facility] Comment on above: Order Comment: 111.2 Performed By: #### L [id number] #### [facility] [address] [place], [address] T PROT 6.2 g/dL Normal 5.9-8.4 [facility] Comment on above: Order Comment: 111.2 Performed By: #### L [id number] #### [facility] [address] [place], [address] Urea nitrogen [Mass/Vol] 29 mg/dL High 4-19 [facility] Comment on above: Order Comment: 111.2 Performed By: #### L [id number] #### [facility] [address] [place], [address] Eosinophil percentageOrdered By: Alfredo Phipps on 02-27-2025 Eosinophils/100 WBC (Bld) 0.0 % 0-5 [facility] Erythrocyte distribution wid th (RBC) [Ratio]Ordered By: Alfredo Phipps on 02-27-2025 Erythrocyte distribution width (RBC) [Entitic vol] 43.8 fL 35.1-43.9 [facility] Erythrocyte distribution wid th ratioOrdered By: Alfredo Phipps on 02-27-2025 Erythrocyte distribution width (RBC) [Ratio] 13.3 % 11.6-14.6 [facility] Erythrocyte distribution wid th standard deviationOrdered By: Alfredo Phipps on 02-27-2025 Erythrocyte distribution width (RBC) [Ratio] 43.8 fl 35.1-43.9 [facility] GFR/1.73 sq M.predicted miles g non-blacks MDRD (S/P/Bld) [Vol rate/Area]Ordered By: Alfredo Phipps on 02-27-2025 Estimated GFR (MDRD) Non-Af Amer 31 Low >60 [facility] Comment on above: mL/min/1.73m2 CKD-EP I Creatinine Equation (2020) Glomerular filtration rate ( GFR) estimation/1.73 sq m using serum, plasma, or whole bOrdered By: Alfredo Phipps on 02-27-2025 GFR/1.73 sq M.predicted among non-blacks MDRD (S/P/Bld) [Vol rate/Area] 31 mL/min/{1.73_m2} Low >60 [facility] Comment on above: mL/min/1.73m2 CKD-EP I Creatinine Equation (2020) Hematocrit Auto (Bld) [Volum e fraction]Ordered By: Alfredo Phipps on 02-27-2025 Hematocrit (Bld) [Volume fraction] 39.0 % Low 40-54 [facility] Hemoglobin measurementOrdere d By: Alfredo Phipps on 02-27-2025 Hemoglobin (Bld) [Mass/Vol] 13.1 g/dL 13.0-16.5 [facility] Immature granulocytes/100 WB C Auto (Bld)Ordered By: Alfredo Phipps on 02-27-2025 Immature granulocytes/100 WBC (Bld) 0.900 % 0.0-0.9 [facility] Comment on above: IG% - Immature Granu locytes (promyelocytes, myelocytes and metamyelocytes) > 1% indicates that a LEFT SHIFT is Present. Laboratory - Chemistry and C hemistry - challengeOrdered By: Alfredo Phipps on 02-27-2025 AST [Catalytic activity/Vol] 11 U/L <38 [facility] Lithiumon 02-27-2025 LI 0.60 mmol/L Normal 0.60-1.20 [facility] Comment on above: Order Comment: 111.2 Performed By: #### [id number] #### [facility] [place], [address] [place] levelOrdered By: Jennifer Phipps on 02-27-2025 [place] Level 0.60 mmol/L 0.60-1.20 [facility] Lymphocytes Auto (Unsp spec) [#/Vol]Ordered By: Alfredo Phipps on 02-27-2025 Lymphocytes (Bld) [#/Vol] 1.42 10*3/uL 0.83-4.51 [facility] Lymphocytes/100 WBC Auto (Un sp spec)Ordered By: Alfredo Phipps on 02-27-2025 Lymphocytes/100 WBC (Bld) 6.9 % Low 19-41 [facility] MCV (mean corpuscular volume ) determinationOrdered By: Alfredo Phipps on 02-27-2025 MCV (RBC) [Entitic vol] 89.7 fL 80-94 [facility] Mean corpuscular hemoglobin (MCH) determinationOrdered By: Alfredo Phipps on 02-27-2025 MCH (RBC) [Entitic mass] 30.1 pg 27.0-32.0 [facility] Mean corpuscular hemoglobin concentration (MCHC) determinationOrdered By: Alfredo Phipps on 02-27-2025 MCHC (RBC) [Mass/Vol] 33.6 g/dL 32-36 [facility] Mean platelet volume determi nationOrdered By: Alfredo Phipps on 02-27-2025 Platelet mean volume (Bld) [Entitic vol] 9.3 fL 6.2-12.0 [facility] Monocyte percentageOrdered B y: Alfredo Phipps on 02-27-2025 Monocytes/100 WBC (Bld) 6.4 % 0-10 [facility] Neutrophil percentageOrdered By: Alfredo Phipps on 02-27-2025 Neutrophils/100 WBC (Bld) 85.6 % High 47-70 [facility] Nucleated red blood cell per centageOrdered By: Alfredo Phipps on 02-27-2025 Nucleated RBC/100 WBC (Bld) [Ratio] 0 % 0-5 [facility] Platelet countOrdered By: Chan Fiore on 02-27-2025 Platelets (Bld) [#/Vol] 274 10*3/uL 150-450 [facility] Potassium (Unsp spec) [Mass/ Vol]Ordered By: Alfredo Phipps on 02-27-2025 Potassium [Moles/Vol] 4.4 mmol/L 3.3-5.1 [facility] Potassium measurement (mass/ volume)Ordered By: Alfredo Phipps on 02-27-2025 Potassium (Unsp spec) [Mass/Vol] 4.4 mmol/L 3.3-5.1 [facility] RBC Auto (Bld) [#/Vol]Ordere d By: Alfredo Phipps on 02-27-2025 RBC (Bld) [#/Vol] 4.35 10*6/uL Low 4.6-6.2 [facility] Serum creatinine measurement (mass/volume)Ordered By: Alfredo Phipps on 02-27-2025 Creatinine [Mass/Vol] 2.32 mg/dL High 0.70-1.20 [facility] Serum globulin measurementOr dered By: Alfredo Phipps on 02-27-2025 Globulin (S) [Mass/Vol] 2.4 g/dL 2.2-4.2 [facility] Serum glucose measurement (m ass/volume)Ordered By: Alfredo Phipps on 02-27-2025 Glucose [Mass/Vol] 134 mg/dL High 70-99 [facility] Serum or plasma alanine sesay otransferase (ALT) measurementOrdered By: Alfredo Phipps on 02-27-2025 ALT [Catalytic activity/Vol] 13 U/L <47 [facility] Serum or plasma albumin you urement (mass/volume)Ordered By: Alfredo Phipps on 02-27-2025 Albumin [Mass/Vol] 3.9 g/dL 3.4-4.8 [facility] Serum or plasma albumin/glob ulin mass ratioOrdered By: Alfredo Phipps on 02-27-2025 Albumin/Globulin [Mass ratio] 1.6 {ratio} 0.9-2.4 [facility] Serum or plasma alkaline hal sphatase measurementOrdered By: Alfredo Phipps on 02-27-2025 ALP [Catalytic activity/Vol] 66 U/L 40-129 [facility] Serum or plasma calcium you urement (mass/volume)Ordered By: Alfredo Phipps on 02-27-2025 Calcium [Mass/Vol] 9.8 mg/dL 7.6-11.0 [facility] Serum or plasma urea nitroge n measurement (mass/volume)Ordered By: Alfredo Phipps on 02-27-2025 Urea nitrogen [Mass/Vol] 29 mg/dL High 4-19 [facility] Sodium levelOrdered By: Raffi Phipps on 02-27-2025 Sodium [Moles/Vol] 138 mmol/L 133-145 [facility] Total proteinOrdered By: Jennifer Phipps on 02-27-2025 Protein [Mass/Vol] 6.2 g/dL 5.9-8.4 [facility] White blood cell (WBC) count Ordered By: Alfredo Phipps on 02-27-2025 WBC (Bld) [#/Vol] 20.6 10*3/uL High 4.4-11.0 [facility] Serum or plasma uric acid me asurement (mass/volume)Ordered By: Adam Ferraro on 02-25-2025 Urate [Mass/Vol] 6.3 mg/dL 3.5-7.2 [facility] Comment on above: The drugs N-Acetylcy steine and Metamizole may falsely depress this assay. Uric Acidon 02-25-2025 URIC 6.3 mg/dL Normal 3.5-7.2 [facility] Comment on above: Order Comment: 111.2 Result Comment: The drugs N-Acetylcysteine and Metamizole may falsely depress this assay. Performed By: #### [id number] #### [facility] [address] [place], [address] Calculated very low density lipoprotein (VLDL) cholesterol measurementOrdered By: Alfredo Phipps on 02-11-2025 Calculated very low density lipoprotein (VLDL) cholesterol measurement 43 mg/dL High 5-40 [facility] VLDL Cholesterol 43 mg/dL High 5-40 [facility] LDL calc ser/plasOrdered By: Alfredo Phipps on 02-11-2025 Cholesterol in LDL [Mass/Vol] 67 mg/dL [facility] Comment on above: Zyffcibeib=368-762 m g/dL & Higher Mpch=546 mg/dL or greater LDL Cholesterol, Calculated 67 mg/dL [facility] Comment on above: Sceefnmppx=934-856 m g/dL & Higher Yhqn=462 mg/dL or greater Lipid Profileon 02-11-2025 CHOL:HDL 4.53 Normal [facility] Comment on above: Order Comment: 111.2 Performed By: #### [id number] #### [facility] [address] [place], [place], [phone] ([phone]) Cholesterol [Mass/Vol] 141 mg/dL Normal <=200 [facility] Comment on above: Order Comment: 111.2 Result Comment: Chol esterol level, Desirable <200 mg/dL Borderline high cholesterol 200-239 mg/dL High cholesterol >=240 mg/dL Recommendations of the NCEP Adult Treatment Panel for the following risk-cutoff thresholds for the [place] population. Performed By: #### [id number] #### [facility] [address] [place], [place], [phone] ([phone] Cholesterol in HDL [Mass/Vol] 31 mg/dL Low [facility] Comment on above: Order Comment: 111.2 Result Comment: Fabienne onal Cholesterol Education Program (NCEP) guidelines: <40 mg/dL: Low HDL-cholesterol (major risk factor for CHD) >= 60 mg/dL: High HDL-cholesterol (negative risk factor for CHD) HDL-cholesterol is affected by a number of factors, e.g. smoking, exercise, hormones, sex and age. Performed By: #### [id number] #### [facility] [address] [place], [address] Cholesterol in LDL [Mass/Vol] 67 mg/dL Normal [facility] Comment on above: Order Comment: 111.2 Result Comment: Bord riertq=465-266 mg/dL Higher Omps=373 mg/dL or greater Performed By: #### [id number] #### [facility] [address] [place], [place], [id number] Cholesterol in VLDL [Mass/Vol] 43 mg/dL High 5-40 [facility] Comment on above: Order Comment: 111.2 Performed By: #### [id number] #### [facility] [address] [place], [place], [id number] Triglyceride [Mass/Vol] 215 mg/dL High [facility] Comment on above: Order Comment: 111.2 Result Comment: The drugs N-Acetylcysteine and Metamizole may falsely depress this assay. Normal range: <150 mg/dL Borderline High: 150-199 mg/dL High: 200-499 mg/dL Very High: >500 mg/dL Performed By: #### L [id number] #### [facility] [address] [place], [place], [id number] Screening total cholesterol/ high density lipoprotein (HDL) cholesterol ratioOrdered By: Alfredo Phipps on 02-11-2025 Cholesterol.total/Choles terol in HDL [Mass ratio] 4.53 {ratio} [facility] Serum or plasma cholesterol in HDL measurement (mass/volume)Ordered By: Alfredo Phipps on 02-11-2025 Cholesterol in HDL [Mass/Vol] 31 mg/dL Low >40 [facility] Comment on above: National Cholesterol Education Program (NCEP) guidelines:<40 mg/dL: Low HDL-cholesterol (major risk factor for CHD)>= 60 mg/dL: High HDL-cholesterol (negative risk factor for CHD)HDL-cholesterol is affected by a number of factors, e.g. smoking, exercise, hormones, sex and age. Serum or plasma cholesterol measurement (mass/volume)Ordered By: Alfredo Phipps on 02-11-2025 Cholesterol [Mass/Vol] 141 mg/dL <201 [facility] Comment on above: Cholesterol level, D esirable <200 mg/dLBorderline high cholesterol 200-239 mg/dLHigh cholesterol >=240 mg/dLRecommendations of the NCEP Adult Treatment Panel for the following risk-cutoff thresholds for the [place] population. Triglycerides measurementOrd ered By: Alfredo Phipps on 02-11-2025 Triglyceride [Mass/Vol] 215 mg/dL High <199 [facility] Comment on above: The drugs N-Acetylcy steine and Metamizole may falsely depress this assay. Normal range: <150 mg/dLBorderline High: 150-199 mg/dLHigh: 200-499 mg/dLVery High: >500 mg/dL Hemoglobin A1con 02-06-2025 HbA1c (Bld) [Mass fraction] 5.8 % Normal <=5.6 [facility] Comment on above: Order Comment: 111.2 Performed By: #### [id number] #### [facility] [address] [place], [place], [address] Hemoglobin A1c percentageOrd ered By: Alfredo Phipps on 02-06-2025 HbA1c (Bld) [Mass fraction] 5.8 % >5.7 [facility] Lithiumon 01-30-2025 LI 0.71 mmol/L Normal 0.60-1.20 [facility] Comment on above: Order Comment: 111.2 [id number] Performed By: #### L [id number] #### [facility] [address] [place], [place], [id number] [place] levelOrdered By: Benoit Ferraro on 01-30-2025 [place] Level 0.71 mmol/L 0.60-1.20 [facility] Serum or plasma uric acid me asurement (mass/volume)Ordered By: Adam Ferraro on 01-25-2025 Urate [Mass/Vol] 6.2 mg/dL 3.5-7.2 [facility] Comment on above: The drugs N-Acetylcy steine and Metamizole may falsely depress this assay. Uric Acidon 01-25-2025 URIC 6.2 mg/dL Normal 3.5-7.2 [facility] Comment on above: Order Comment: 111.2 Result Comment: The drugs N-Acetylcysteine and Metamizole may falsely depress this assay. Performed By: #### L [id number] #### [facility] [address] [place], [place], [address] Microalb:Creat Ratio,Random URon 01-03-2025 Creatinine [Mass/Vol] 104.00 mg/dL Normal NO RAN GE EST. [facility] Comment on above: Performed By: #### L [id number] #### [facility] [address] [place], [place], [id number] MALB:CRE TNP Normal <30 mg/g CRE [facility] Comment on above: Performed By: #### L [id number] #### [facility] [address] [place], [place], [id number] MICROALBUMIN,UR < 5.0 Normal NO RANGE EST. [facility] Comment on above: Performed By: #### L [id number] #### [facility] [address] [place], [place], [id number] Random urine microalbumin me asurementOrdered By: Adam Ferraro on 01-03-2025 Urine Random Microalbumin < 5.0 mg/L NO RANGE EST. [facility] Urine albumin/creatinine rat io for detection of microalbuminuriaOrdered By: Adam Ferraro on 01-03-2025 Urine Microalbumin/Creatinine Ratio TNP [facility] Comment on above: Test not performed Urine creatinine measurement (mass/volume)Ordered By: Adam Ferraro on 01-03-2025 Creatinine (U) [Mass/Vol] 104.00 mg/dL NO RANGE EST. [facility] Absolute lymphocyte countOrd ered By: Adam Ferraro on 01-02-2025 Lymphocytes Auto (Unsp spec) [#/Vol] 2.41 10*3/uL 0.83-4.51 [facility] Absolute neutrophil countOrd ered By: Adam Ferraro on 01-02-2025 Neutrophils (Bld) [#/Vol] 5.6 10*3/uL 2.0-7.7 [facility] Albumin to globulin ratioOrd ered By: Adam Ferraro on 01-02-2025 Albumin/Globulin [Mass ratio] 1.0 {ratio} 0.9-2.4 [facility] Automated lymphocyte count a s percentage of total leukocytesOrdered By: Adam Ferraro on 01-02-2025 Lymphocytes/100 WBC Auto (Unsp spec) 25.1 % [facility] Basophil percentageOrdered B y: Adam Ferraro on 01-02-2025 Basophils/100 WBC (Bld) 1.1 % High 0-1 [facility] Bilirubin, totalOrdered By: Adam Ferraro on 01-02-2025 Bilirubin [Mass/Vol] 0.30 mg/dL 0.20-1.00 [facility] Comment on above: For patients on eltr ombopag therapy, use of Dimension [place] TBIL is not recommended. Blood urea nitrogen (BUN)/cr eatinine ratioOrdered By: Adam Jasmine on 01-02-2025 Urea nitrogen/Creatinine [Mass ratio] 12.6 mg/mg 09-02 [facility] CBC W/Diff, Automatedon 12-15 Absolute Lymph 2.41 X10 3/uL Normal 0.83-4.51 [facility] Comment on above: Order Comment: 111.2 Performed By: #### L [id number] #### [facility] [address] [place], [address] Absolute Neut 5.6 X10 3/uL Normal 2.0-7.7 [facility] Comment on above: Order Comment: 111.2 Performed By: #### L [id number] #### [facility] [address] [place], [address] Basophils/100 WBC (Bld) 1.1 % High 0-1 [facility] Comment on above: Order Comment: 111.2 Performed By: #### L [id number] #### [facility] [address] [place], [address] Eosinophils/100 WBC (Bld) 5.3 % High 0-5 [facility] Comment on above: Order Comment: 111.2 Performed By: #### L [id number] #### [facility] [address] [place], [address] Erythrocyte distribution width (RBC) [Ratio] 12.9 % Normal 11.6-14.6 [facility] Comment on above: Order Comment: 111.2 Performed By: #### L [id number] #### [facility] [address] [place], [address] Hematocrit (Bld) [Volume fraction] 40.5 % Normal 40-54 [facility] Comment on above: Order Comment: 111.2 Performed By: #### L [id number] #### [facility] [address] [place], [address] Hemoglobin (Bld) [Mass/Vol] 13.4 g/dL Normal 13.0-16.5 [facility] Comment on above: Order Comment: 111.2 Performed By: #### L [id number] #### [facility] [address] [place], [address] IG% 0.500 Normal 0.0-0.9 [facility] Comment on above: Order Comment: 111.2 Result Comment: IG% - Immature Granulocytes (promyelocytes, myelocytes and metamyelocytes) > 1% indicates that a LEFT SHIFT is Present. Performed By: #### L [id number] #### [facility] [address] [place], [address] Lymphocytes/100 WBC (Bld) 25.1 % Normal 19-41 [facility] Comment on above: Order Comment: 111.2 Performed By: #### L [id number] #### [facility] [address] [place], [address] MCH (RBC) [Entitic mass] 30.0 pg Normal 27.0-32.0 [facility] Comment on above: Order Comment: 111.2 Performed By: #### L [id number] #### [facility] [address] [place], [address] MCHC (RBC) [Mass/Vol] 33.1 g/dL Normal 32-36 [facility] Comment on above: Order Comment: 111.2 Performed By: #### L [id number] #### [facility] [address] [place], [address] MCV (RBC) [Entitic vol] 90.8 fL Normal 80-94 [facility] Comment on above: Order Comment: 111.2 Performed By: #### L [id number] #### [facility] [address] [place], [address] Monocytes/100 WBC (Bld) 9.4 % Normal 0-10 [facility] Comment on above: Order Comment: 111.2 Performed By: #### L [id number] #### [facility] [address] [place], [address] Neutrophils/100 WBC (Bld) 58.6 % Normal 47-70 [facility] Comment on above: Order Comment: 111.2 Performed By: #### L [id number] #### [facility] [address] [place], [address] Nucleated RBC (Bld) [#/Vol] 0 10*3/uL Normal 0-5 [facility] Comment on above: Order Comment: 111.2 Performed By: #### L [id number] #### [facility] [address] [place], [address] Platelet mean volume (Bld) [Entitic vol] 9.5 fL Normal 6.2-12.0 [facility] Comment on above: Order Comment: 111.2 Performed By: #### L [id number] #### [facility] [address] [place], [address] Platelets (Bld) [#/Vol] 247 10*3/uL Normal 150-450 [facility] Comment on above: Order Comment: 111.2 Performed By: #### L [id number] #### [facility] [address] [place], [address] RBC (Bld) [#/Vol] 4.46 10*6/uL Low 4.6-6.2 [facility] Comment on above: Order Comment: 111.2 Performed By: #### L [id number] #### [facility] [address] [place], [address] RDW SD 41.9 fl Normal 35.1-43.9 [facility] Comment on above: Order Comment: 111.2 Performed By: #### L [id number] #### [facility] [address] [place], [address] WBC (Bld) [#/Vol] 9.6 10*3/uL Normal 4.4-11.0 [facility] Comment on above: Order Comment: 111.2 Performed By: #### L [id number] #### [facility] [address] [place], [address] Carbon dioxide measurementOr dered By: Adam Ferraro on 01-02-2025 CO2 [Moles/Vol] 25.0 mmol/L 21.0-32.0 [facility] Chloride measurementOrdered By: Adam Ferraro on 01-02-2025 Chloride [Moles/Vol] 109 mmol/L High 98-107 [facility] Comprehensive Metabolic Prof ilon 01-02-2025 Albumin [Mass/Vol] 3.1 g/dL Low 3.2-5.0 [facility] Comment on above: Order Comment: 111.2 Performed By: #### L [id number] #### [facility] [address] [place], [address] Albumin/Globulin [Mass ratio] 1.0 {ratio} Normal 0.9-2.4 [facility] Comment on above: Order Comment: 111.2 Performed By: #### L [id number] #### [facility] [address] [place], [address] ALK P 81 U/L Normal 45-117 [facility] Comment on above: Order Comment: 111.2 Performed By: #### L [id number] #### [facility] [address] [place], [address] ALT [Catalytic activity/Vol] 17 U/L Normal 16-61 [facility] Comment on above: Order Comment: 111.2 Performed By: #### L [id number] #### [facility] [address] [place], [address] AST [Catalytic activity/Vol] 12 U/L Low 15-37 [facility] Comment on above: Order Comment: 111.2 Performed By: #### L [id number] #### [facility] [address] [place], [address] Bilirubin [Mass/Vol] 0.30 mg/dL Normal 0.20-1.00 [facility] Comment on above: Order Comment: 111.2 Result Comment: For patients on eltrombopag therapy, use of Dimension [place] TBIL is not recommended. Performed By: #### L [id number] #### [facility] [address] [place], [address] BUN/CRE 12.6 RATIO Normal 10-20 [facility] Comment on above: Order Comment: 111.2 Performed By: #### L [id number] #### [facility] [address] [place], [address] CA,Total 9.4 mg/dL Normal 8.5-10.1 [facility] Comment on above: Order Comment: 111.2 Performed By: #### L [id number] #### [facility] [address] [place], [address] Chloride [Moles/Vol] 109 mmol/L High 98-107 [facility] Comment on above: Order Comment: 111.2 Performed By: #### L [id number] #### [facility] [address] [place], [address] CO2 [Moles/Vol] 25.0 mmol/L Normal 21.0-32.0 [facility] Comment on above: Order Comment: 111.2 Performed By: #### L [id number] #### [facility] [address] [place], [address] Creatinine [Mass/Vol] 2.14 mg/dL High 0.70-1.30 [facility] Comment on above: Order Comment: 111.2 Result Comment: The validity of the calculated GFR GFRAA in patients over 70 years has not been determined. Clinical correlation is essential. Performed By: #### L [id number] #### [facility] [address] [place], [address] EST GFR - AA 41 mL/min Low >60 [facility] Comment on above: Order Comment: 111.2 Result Comment: Afri can Armenian GFR Calc Performed By: #### L [id number] #### [facility] [address] [place], [address] GAP 7 Normal 5-15 [facility] Comment on above: Order Comment: 111.2 Performed By: #### L [id number] #### [facility] [address] [place], [address] GFR/1.73 sq M.predicted among non-blacks MDRD (S/P/Bld) [Vol rate/Area] 34 mL/min/{1.73_m2} Low >60 [facility] Comment on above: Order Comment: 111.2 Result Comment: Non- GFR Calc Performed By: #### L [id number] #### [facility] [address] [place], [address] Globulin (S) [Mass/Vol] 3.1 g/dL Normal 2.2-4.2 [facility] Comment on above: Order Comment: 111.2 Performed By: #### L [id number] #### [facility] [address] [place], [address] Glucose [Mass/Vol] 115 mg/dL High 74-106 [facility] Comment on above: Order Comment: 111.2 Result Comment: Fast ing Glucose result from 100 to 125 mg/dL suggests IMPAIRED HOMEOSTASIS per A.D.A. criteria. Performed By: #### L [id number] #### [facility] [address] [place], [address] Potassium [Moles/Vol] 4.1 mmol/L Normal 3.5-5.1 [facility] Comment on above: Order Comment: 111.2 Performed By: #### L [id number] #### [facility] [address] [place], [address] Sodium [Moles/Vol] 141 mmol/L Normal 136-145 [facility] Comment on above: Order Comment: 111.2 Performed By: #### L [id number] #### [facility] [address] [place], [address] T PROT 6.2 g/dL Low 6.4-8.2 [facility] Comment on above: Order Comment: 111.2 Performed By: #### L [id number] #### [facility] [address] [place], [address] Urea nitrogen [Mass/Vol] 27 mg/dL High 7-18 [facility] Comment on above: Order Comment: 111.2 Performed By: #### L [id number] #### [facility] [address] [place], [address] Eosinophil percentageOrdered By: Adam Ferraro on 01-02-2025 Eosinophils/100 WBC (Bld) 5.3 % High 0-5 [facility] Erythrocyte distribution wid th ratioOrdered By: Adam Ferraro on 01-02-2025 Erythrocyte distribution width (RBC) [Ratio] 12.9 % 11.6-14.6 [facility] Erythrocyte distribution wid th standard deviationOrdered By: Adam Ferraro on 01-02-2025 Erythrocyte distribution width (RBC) [Entitic vol] 41.9 fL 35.1-43.9 [facility] Erythrocyte distribution width (RBC) [Ratio] 41.9 fl 35.1-43.9 [facility] Estimated glomerular filtrat ion rate (GFR) AmericanOrdered By: Adam Ferraro on 01-02-2025 Estimated GFR (MDRD) Amer 41 mL/min Low >60 [facility] Comment on above: GFR Calc Glomerular filtration rate ( GFR) estimationOrdered By: Adam Ferraro on 01-02-2025 Estimated GFR (MDRD) Non-Af Amer 34 mL/min Low >60 [facility] Comment on above: Non- GFR Calc GFR/1.73 sq M.predicted among non-blacks MDRD (S/P/Bld) [Vol rate/Area] 34 mL/min/{1.73_m2} Low >60 [facility] Comment on above: Non- GFR Calc Glucose measurementOrdered B y: Adam Ferraro on 01-02-2025 Glucose [Mass/Vol] 115 mg/dL High 74-106 [facility] Comment on above: Fasting Glucose resu lt from 100 to 125 mg/dL suggests IMPAIRED HOMEOSTASIS per A.D.A. criteria. Hematocrit Auto (Bld) [Volum e fraction]Ordered By: Adam Ferraro on 01-02-2025 Hematocrit (Bld) [Volume fraction] 40.5 % 40-54 [facility] Hemoglobin measurementOrdere d By: Adam Ferraro on 01-02-2025 Hemoglobin (Bld) [Mass/Vol] 13.4 g/dL 13.0-16.5 [facility] Immature granulocytes/100 WB C Auto (Bld)Ordered By: Adam Ferraro on 01-02-2025 Immature granulocytes/100 WBC (Bld) 0.500 % 0.0-0.9 [facility] Comment on above: IG% - Immature Granu locytes (promyelocytes, myelocytes and metamyelocytes) > 1% indicates that a LEFT SHIFT is Present. Laboratory - Chemistry and C hemistry - challengeOrdered By: Adam Ferraro on 01-02-2025 AST [Catalytic activity/Vol] 12 U/L Low 15-37 [facility] Lithiumon 01-02-2025 LI 0.60 mmol/L Normal 0.60-1.20 [facility] Comment on above: Order Comment: 111.2 Performed By: #### [id number] #### [facility] [address] [place], [address] [place] levelOrdered By: Benoit Ferraro on 01-02-2025 [place] Level 0.60 mmol/L 0.60-1.20 [facility] Lymphocytes Auto (Unsp spec) [#/Vol]Ordered By: Adam Ferraro on 01-02-2025 Lymphocytes (Bld) [#/Vol] 2.41 10*3/uL 0.83-4.51 [facility] Lymphocytes/100 WBC Auto (Un sp spec)Ordered By: Adam Ferraro on 01-02-2025 Lymphocytes/100 WBC (Bld) 25.1 % 19-41 [facility] MCV (mean corpuscular volume ) determinationOrdered By: Adam Ferraro on 01-02-2025 MCV (RBC) [Entitic vol] 90.8 fL 80-94 [facility] Mean corpuscular hemoglobin (MCH) determinationOrdered By: Adam Ferraro on 01-02-2025 MCH (RBC) [Entitic mass] 30.0 pg 27.0-32.0 [facility] Mean corpuscular hemoglobin concentration (MCHC) determinationOrdered By: Adam Ferraro on 01-02-2025 MCHC (RBC) [Mass/Vol] 33.1 g/dL 32-36 [facility] Mean platelet volume determi nationOrdered By: Adam Ferraro on 01-02-2025 Platelet mean volume (Bld) [Entitic vol] 9.5 fL 6.2-12.0 [facility] Monocyte percentageOrdered B y: Adam Ferraro on 01-02-2025 Monocytes/100 WBC (Bld) 9.4 % 0-10 [facility] Neutrophil percentageOrdered By: Adam Ferraro on 01-02-2025 Neutrophils/100 WBC (Bld) 58.6 % 47-70 [facility] Nucleated red blood cell per centageOrdered By: Adam Ferraro on 01-02-2025 Nucleated RBC/100 WBC (Bld) [Ratio] 0 % 0-5 [facility] Phosphoruson 01-02-2025 Phosphate [Mass/Vol] 4.7 mg/dL Normal 2.5-4.9 [facility] Comment on above: Order Comment: 111.2 Performed By: #### [id number] #### [facility] [address] [place], [address] Phosphorus measurementOrdere d By: Adam Ferraro on 01-02-2025 Phosphorus Level 4.7 mg/dL 2.5-4.9 [facility] Platelet countOrdered By: Sabino Ferraro on 01-02-2025 Platelets (Bld) [#/Vol] 247 10*3/uL 150-450 [facility] Potassium measurementOrdered By: Adam Ferraro on 01-02-2025 Potassium [Moles/Vol] 4.1 mmol/L 3.5-5.1 [facility] RBC Auto (Bld) [#/Vol]Ordere d By: Adam Ferraro on 01-02-2025 RBC (Bld) [#/Vol] 4.46 10*6/uL Low 4.6-6.2 [facility] Serum anion gap measurementO rdered By: Adam Ferraro on 01-02-2025 Anion gap [Moles/Vol] 7 mmol/L 5-15 [facility] Serum globulin measurementOr dered By: Adam Ferraro on 01-02-2025 Globulin (S) [Mass/Vol] 3.1 g/dL 2.2-4.2 [facility] Serum or plasma alanine sesay otransferase (ALT) measurementOrdered By: Adam Ferraro on 01-02-2025 ALT [Catalytic activity/Vol] 17 U/L 16-61 [facility] Serum or plasma albumin you urement (mass/volume)Ordered By: Adam Ferraro on 01-02-2025 Albumin [Mass/Vol] 3.1 g/dL Low 3.2-5.0 [facility] Serum or plasma alkaline hal sphatase measurementOrdered By: Adam Ferraro on 01-02-2025 ALP [Catalytic activity/Vol] 81 U/L 45-117 [facility] Serum or plasma calcium you urement (mass/volume)Ordered By: Adam Ferraro on 01-02-2025 Calcium [Mass/Vol] 9.4 mg/dL 8.5-10.1 [facility] Serum or plasma creatinine m easurement (mass/volume)Ordered By: Adam Ferraro on 01-02-2025 Creatinine [Mass/Vol] 2.14 mg/dL High 0.70-1.30 [facility] Comment on above: The validity of the calculated GFR & GFRAA in patients over 70 years has not been determined. Clinical correlation is essential. Serum or plasma urea nitroge n measurement (mass/volume)Ordered By: Adam Ferraro on 01-02-2025 Urea nitrogen [Mass/Vol] 27 mg/dL High 7-18 [facility] Sodium levelOrdered By: Spike Ferraro on 01-02-2025 Sodium [Moles/Vol] 141 mmol/L 136-145 [facility] Total proteinOrdered By: Benoit Ferraro on 01-02-2025 Protein [Mass/Vol] 6.2 g/dL Low 6.4-8.2 [facility] White blood cell (WBC) count Ordered By: Adam Ferraro on 01-02-2025 WBC (Bld) [#/Vol] 9.6 10*3/uL 4.4-11.0 [facility] Albumin to globulin ratioOrd ered By: Adam Ferraro on 12-28-2024 Albumin/Globulin [Mass ratio] 0.9 {ratio} 0.9-2.4 [facility] Bilirubin, totalOrdered By: Adam Ferraro on 12-28-2024 Bilirubin [Mass/Vol] 0.30 mg/dL 0.20-1.00 [facility] Comment on above: For patients on eltr ombopag therapy, use of Dimension [place] TBIL is not recommended. Blood urea nitrogen (BUN)/cr eatinine ratioOrdered By: Adam Ferraro on 12-28-2024 Urea nitrogen/Creatinine [Mass ratio] 10.0 mg/mg 10-20 [facility] CBC-Complete Blood Cnt No Di ffon 12-28-2024 Erythrocyte distribution width (RBC) [Ratio] 13.1 % Normal 11.6-14.6 [facility] Comment on above: Order Comment: 111.2 Performed By: #### [id number] #### [facility] [address] [place], [address] Hematocrit (Bld) [Volume fraction] 40.4 % Normal 40-54 [facility] Comment on above: Order Comment: 111.2 Performed By: #### [id number] #### [facility] [address] [place], [address] Hemoglobin (Bld) [Mass/Vol] 13.2 g/dL Normal 13.0-16.5 [facility] Comment on above: Order Comment: 111.2 Performed By: #### [id number] #### [facility] [address] [place], [address] MCH (RBC) [Entitic mass] 29.7 pg Normal 27.0-32.0 [facility] Comment on above: Order Comment: 111.2 Performed By: #### [id number] #### [facility] [address] [place], [address] MCHC (RBC) [Mass/Vol] 32.7 g/dL Normal 32-36 [facility] Comment on above: Order Comment: 111.2 Performed By: #### [id number] #### [facility] [address] [place], [address] MCV (RBC) [Entitic vol] 91.0 fL Normal 80-94 [facility] Comment on above: Order Comment: 111.2 Performed By: #### [id number] #### [facility] [address] [place], [address] Platelet mean volume (Bld) [Entitic vol] 9.3 fL Normal 6.2-12.0 [facility] Comment on above: Order Comment: 111.2 Performed By: #### [id number] #### [facility] [address] [place], [address] Platelets (Bld) [#/Vol] 248 10*3/uL Normal 150-450 [facility] Comment on above: Order Comment: 111.2 Performed By: #### [id number] #### [facility] [address] [place], [address] RBC (Bld) [#/Vol] 4.44 10*6/uL Low 4.6-6.2 [facility] Comment on above: Order Comment: 111.2 Performed By: #### [id number] #### [facility] [address] [place], [address] RDW SD 42.4 fl Normal 35.1-43.9 [facility] Comment on above: Order Comment: 111.2 Performed By: #### [id number] #### [facility] [address] [place], [address] WBC (Bld) [#/Vol] 10.5 10*3/uL Normal 4.4-11.0 [facility] Comment on above: Order Comment: 111.2 Performed By: #### [id number] #### [facility] [address] [place], [address] Carbon dioxide measurementOr dered By: Adam Ferraro on 12-28-2024 CO2 [Moles/Vol] 25.0 mmol/L 21.0-32.0 [facility] Chloride measurementOrdered By: Adam Ferraro on 12-28-2024 Chloride [Moles/Vol] 110 mmol/L High 98-107 [facility] Comprehensive Metabolic Prof ilon 12-28-2024 Albumin [Mass/Vol] 3.0 g/dL Low 3.2-5.0 [facility] Comment on above: Order Comment: 111.2 Performed By: #### [id number] #### [facility] [address] [place], [address] Albumin/Globulin [Mass ratio] 0.9 {ratio} Normal 0.9-2.4 [facility] Comment on above: Order Comment: 111.2 Performed By: #### [id number] #### [facility] [address] [place], [address] ALK P 81 U/L Normal 45-117 [facility] Comment on above: Order Comment: 111.2 Performed By: #### [id number] #### [facility] [address] [place], [address] ALT [Catalytic activity/Vol] 20 U/L Normal 16-61 [facility] Comment on above: Order Comment: 111.2 Performed By: #### [id number] #### [facility] [address] [place], [address] AST [Catalytic activity/Vol] 11 U/L Low 15-37 [facility] Comment on above: Order Comment: 111.2 Performed By: #### [id number] #### [facility] [address] [place], [address] Bilirubin [Mass/Vol] 0.30 mg/dL Normal 0.20-1.00 [facility] Comment on above: Order Comment: 111.2 Result Comment: For patients on eltrombopag therapy, use of Dimension [place] TBIL is not recommended.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 #### L 501.0900 #### [facility] [address] [place], [address] EST GFR - AA 41 mL/min Low >60 [facility] Comment on above: Order Comment: 111.2 UNKNOWN DATE AND TIME Result Comment: Afri can Armenian GFR Calc Performed By: #### L 501.0900 #### [facility] [address] [place], [address] GFR/1.73 sq M.predicted among non-blacks MDRD (S/P/Bld) [Vol rate/Area] 34 mL/min/{1.73_m2} Low >60 [facility] Comment on above: Order Comment: 111.2 UNKNOWN DATE AND TIME Result Comment: Non- GFR Calc Performed By: #### L 501.0900 #### [facility] [address] [place], [address] Glucose [Mass/Vol] 106 mg/dL Normal 74-106 [facility] Comment on above: Order Comment: 111.2 UNKNOWN DATE AND TIME Result Comment: Fast ing Glucose result from 100 to 125 mg/dL suggests IMPAIRED HOMEOSTASIS per A.D.A. criteria. Performed By: #### L 501.0900 #### [facility] [address] [place], [address] Phosphate [Mass/Vol] 4.2 mg/dL Normal 2.5-4.9 [facility] Comment on above: Order Comment: 111.2 UNKNOWN DATE AND TIME Performed By: #### L 501.0900 #### [facility] [address] [place], [address] Potassium [Moles/Vol] 4.3 mmol/L Normal 3.5-5.1 [facility] Comment on above: Order Comment: 111.2 UNKNOWN DATE AND TIME Performed By: #### L 501.0900 #### [facility] [address] [place] [address] Sodium [Moles/Vol] 141 mmol/L Normal 136-145 [facility] Comment on above: Order Comment: 111.2 UNKNOWN DATE AND TIME Performed By: #### L 501.0900 #### [facility] [address] [place], [address] Urea nitrogen [Mass/Vol] 18 mg/dL Normal 7-18 [facility] Comment on above: Order Comment: 111.2 UNKNOWN DATE AND TIME Performed By: #### L 501.0900 #### [facility] [address] [place], [address] Hemoglobin A1con 06-08-2024 HbA1c (Bld) [Mass fraction] 5.9 % High 3.8-5.6 [facility] Comment on above: Order Comment: 111-2 Result Comment: Norm al < 5.7 % Prediabetic 5.7 - 6.4 % Diabetic >or= 6.5 % Please note range changes. Performed By: #### L 501.9985 #### [facility] [address] [place], [address] Protein+Creatinine Ratio,Uri neon 05-28-2024 PROT:CRE RATIO 135 mg/g CRE Normal 0-200 [facility] Comment on above: Performed By: #### L 501.2300, L500.4050, L100.0100 #### [facility] [address] [place], [address] Protein (U) [Mass/Vol] 20.5 mg/dL High <11.9 [facility] Comment on above: Performed By: #### L 501.2300, L500.4050, L100.0100 #### [facility] [address] [place], [address] UR CREAT 152.00 mg/dL Normal NO RANGE EST. [facility] Comment on above: Performed By: #### L 501.2300, L500.4050, L100.0100 #### [facility] [address] [place], [address] CBC W/Diff, Automatedon 07- Absolute Lymph 2.11 X10 3/uL Normal 0.83-4.51 [facility] Comment on above: Performed By: #### L 501.2300, L500.4050, L100.0100 #### [facility] [address] [place], [address] Absolute Neut 6.6 X10 3/uL Normal 2.0-7.7 [facility] Comment on above: Performed By: #### L 501.2300, L500.4050, L100.0100 #### [facility] [address] [place], [address] Basophils/100 WBC (Bld) 1.0 % Normal 0-1 [facility] Comment on above: Performed By: #### L 501.2300, L500.4050, L100.0100 #### [facility] [address] [place], [address] Eosinophils/100 WBC (Bld) 5.2 % High 0-5 [facility] Comment on above: Performed By: #### L 501.2300, L500.4050, L100.0100 #### [facility] [address] [place], [address] Erythrocyte distribution width (RBC) [Ratio] 13.1 % Normal 11.6-14.6 [facility] Comment on above: Performed By: #### L 501.2300, L500.4050, L100.0100 #### [facility] [address] [place], [address] Hematocrit (Bld) [Volume fraction] 42.0 % Normal 40-54 [facility] Comment on above: Performed By: #### L 501.2300, L500.4050, L100.0100 #### [facility] [address] [place], [address] Hemoglobin (Bld) [Mass/Vol] 13.6 g/dL Normal 13.0-16.5 [facility] Comment on above: Performed By: #### L 501.2300, L500.4050, L100.0100 #### [facility] [address] [place], [address] IG% 0.500 Normal 0.0-0.9 [facility] Comment on above: Result Comment: IG% - Immature Granulocytes (promyelocytes, myelocytes and metamyelocytes) > 1% indicates that a LEFT SHIFT is Present. Performed By: #### L 501.2300, L500.4050, L100.0100 #### [facility] [address] [place], [address] Lymphocytes/100 WBC (Bld) 20.5 % Normal 19-41 [facility] Comment on above: Performed By: #### L 501.2300, L500.4050, L100.0100 #### [facility] [address] [place], [address] MCH (RBC) [Entitic mass] 29.8 pg Normal 27.0-32.0 [facility] Comment on above: Performed By: #### L 501.2300, L500.4050, L100.0100 #### [facility] [address] [place], [address] MCHC (RBC) [Mass/Vol] 32.4 g/dL Normal 32-36 [facility] Comment on above: Performed By: #### L 501.2300, L500.4050, L100.0100 #### [facility] [address] [place], [address] MCV (RBC) [Entitic vol] 91.9 fL Normal 80-94 [facility] Comment on above: Performed By: #### L 501.2300, L500.4050, L100.0100 #### [facility] [address] [place], [address] Monocytes/100 WBC (Bld) 8.4 % Normal 0-10 [facility] Comment on above: Performed By: #### L 501.2300, L500.4050, L100.0100 #### [facility] [address] [place], [address] Neutrophils/100 WBC (Bld) 64.4 % Normal 47-70 [facility] Comment on above: Performed By: #### L 501.2300, L500.4050, L100.0100 #### [facility] [address] [place], [address] Nucleated RBC (Bld) [#/Vol] 0 10*3/uL Normal 0-5 [facility] Comment on above: Performed By: #### L 501.2300, L500.4050, L100.0100 #### [facility] [address] [place], [address] Platelet mean volume (Bld) [Entitic vol] 9.6 fL Normal 6.2-12.0 [facility] Comment on above: Performed By: #### L 501.2300, L500.4050, L100.0100 #### [facility] [address] [place], [address] Platelets (Bld) [#/Vol] 243 10*3/uL Normal 150-450 [facility] Comment on above: Performed By: #### L 501.2300, L500.4050, L100.0100 #### [facility] [address] [place], [address] RBC (Bld) [#/Vol] 4.57 10*6/uL Low 4.6-6.2 [facility] Comment on above: Performed By: #### L 501.2300, L500.4050, L100.0100 #### [facility] [address] [place], [address] RDW SD 43.5 fl Normal 35.1-43.9 [facility] Comment on above: Performed By: #### L 501.2300, L500.4050, L100.0100 #### [facility] [address] [place], [address] WBC (Bld) [#/Vol] 10.3 10*3/uL Normal 4.4-11.0 [facility] Comment on above: Performed By: #### L 501.2300, L500.4050, L100.0100 #### [facility] [address] [place], [address] Lithiumon 05-25-2024 LI 0.60 mmol/L Normal [facility] Comment on above: Order Comment: 111.2 Result Comment: Ther apeutic Range: 0.60 - 1.20 Performed By: #### L 501.2300, L500.4050, L100.0100 #### [facility] [address] [place], [address] Renal Profileon 05-25-2024 Albumin [Mass/Vol] 3.1 g/dL Low 3.2-5.0 [facility] Comment on above: Performed By: #### L 501.2300, L500.4050, L100.0100 #### [facility] [address] [place], [address] BUN/CRE 10.6 RATIO Normal 10-20 [facility] Comment on above: Performed By: #### L 501.2300, L500.4050, L100.0100 #### [facility] [address] [place], [address] CA,Total 9.6 mg/dL Normal 8.5-10.1 [facility] Comment on above: Performed By: #### L 501.2300, L500.4050, L100.0100 #### [facility] [address] [place], [address] Chloride [Moles/Vol] 108 mmol/L High 98-107 [facility] Comment on above: Performed By: #### L 501.2300, L500.4050, L100.0100 #### [facility] [address] [place], [address] CO2 [Moles/Vol] 26.0 mmol/L Normal 21.0-32.0 [facility] Comment on above: Performed By: #### L 501.2300, L500.4050, L100.0100 #### [facility] [address] [place], [address] Creatinine [Mass/Vol] 2.17 mg/dL High 0.70-1.30 [facility] Comment on above: Result Comment: The validity of the calculated GFR GFRAA in patients over 70 years has not been determined. Clinical correlation is essential. Performed By: #### L 501.2300, L500.4050, L100.0100 #### [facility] [address] [place], [address] EST GFR - AA 40 mL/min Low >60 [facility] Comment on above: Result Comment: Afri can Armenian GFR Calc Performed By: #### L 501.2300, L500.4050, L100.0100 #### [facility] [address] [place], [address] GFR/1.73 sq M.predicted among non-blacks MDRD (S/P/Bld) [Vol rate/Area] 33 mL/min/{1.73_m2} Low >60 [facility] Comment on above: Result Comment: Non- GFR Calc Performed By: #### L 501.2300, L500.4050, L100.0100 #### [facility] [address] [place], [address] Glucose [Mass/Vol] 126 mg/dL High 74-106 [facility] Comment on above: Result Comment: Fast ing Glucose result greater than or equal to 126 mg/dL suggests DIABETES MELLITUS per A.D.A. criteria. Performed By: #### L 501.2300, L500.4050, L100.0100 #### [facility] [address] [place], [address] Phosphate [Mass/Vol] 4.7 mg/dL Normal 2.5-4.9 [facility] Comment on above: Performed By: #### L 501.2300, L500.4050, L100.0100 #### [facility] [address] [place], [address] Potassium [Moles/Vol] 4.1 mmol/L Normal 3.5-5.1 [facility] Comment on above: Performed By: #### L 501.2300, L500.4050, L100.0100 #### [facility] [address] [place], [address] Sodium [Moles/Vol] 140 mmol/L Normal 136-145 [facility] Comment on above: Performed By: #### L 501.2300, L500.4050, L100.0100 #### [facility] [address] [place], [address] Urea nitrogen [Mass/Vol] 23 mg/dL High 7-18 [facility] Comment on above: Performed By: #### L 501.2300, L500.4050, L100.0100 #### [facility] [address] [place], [address] [facility] REGGIE LEÓN ([id number]) 1965 M Date Time Provider Department 05/21/24 [facility] your visit today, we recorded the following information about you: Brianna Juárez 05/21/2024 9:54 AM Signed No Show Documentation Reggie Iesha no showed for an appointment on [id number] with Dorota Smith MD at [facility]. He was scheduled for 919. I called [...] Yes Is this the Third or Fourth "No Show"? Zohreh Juárez May 21, 2024 9:50 AM [...] 10 mg by mouth once daily. - Sjteu-1-EOM-EPA-Fish Oil 1,000 mg (120 mg-180 mg) cap Take 1 capsule by mouth once daily. - PALIPERIDONE ORAL Take 6 mg by mouth as directed. Problem List As Of Date 05/21/2024 Noted Resolved Pneumonia, Organism Unspecified [J18.9] 01/29/2008 02/11/2010 Acute Gastritis without Mention of Hemorrhage [*05/28/2008 02/11/2010 Nontraumatic rupture of other tendons of foot a*10/08/2009 07/30/2016 Routine general medical examination at [facility]*10/21/2009 01/29/2013 Class: Chronic Bipolar affective disorder (HCC) [F31.9] 10/21/2009 Tobacco abuse [Z72.0] 10/21/2009 07/10/2018 Porokeratosis [Q82.8] 02/03/2010 Gastritis, chronic [K29.50] 02/11/2010 07/10/2018 Erosive esophagitis [K22.10] 02/11/2010 Achilles bursitis or tendinitis [M76.60] 03/20/2010 07/30/2016 Contusion of unspecified site [T14.8XXA] 03/30/2010 07/30/2016 Enthesopathy of unspecified site [M77.9] 11/25/2010 07/10/2018 Other physical therapy [[id number]] 11/25/2010 07/10/2018 Low HDL (under 40) [E78.6] [...] (leucocytosis) [D (more content not included)... Normal [facility] CBC W/Diff, Automatedon 06- Absolute Lymph 2.09 X10 3/uL Normal 0.83-4.51 [facility] Comment on above: Order Comment: 111.2 Performed By: #### L 501.2300, L500.4050, L100.0100 #### [facility] [address] [place], [address] Absolute Neut 6.8 X10 3/uL Normal 2.0-7.7 [facility] Comment on above: Order Comment: 111.2 Performed By: #### L 501.2300, L500.4050, L100.0100 #### [facility] [address] [place], [address] Basophils/100 WBC (Bld) 1.0 % Normal 0-1 [facility] Comment on above: Order Comment: 111.2 Performed By: #### L 501.2300, L500.4050, L100.0100 #### [facility] [address] [place], [address] Eosinophils/100 WBC (Bld) 3.5 % Normal 0-5 [facility] Comment on above: Order Comment: 111.2 Performed By: #### L 501.2300, L500.4050, L100.0100 #### [facility] [address] [place], [address] Erythrocyte distribution width (RBC) [Ratio] 13.2 % Normal 11.6-14.6 [facility] Comment on above: Order Comment: 111.2 Performed By: #### L 501.2300, L500.4050, L100.0100 #### [facility] [address] [place], [address] Hematocrit (Bld) [Volume fraction] 41.3 % Normal 40-54 [facility] Comment on above: Order Comment: 111.2 Performed By: #### L 501.2300, L500.4050, L100.0100 #### [facility] [address] [place], [address] Hemoglobin (Bld) [Mass/Vol] 13.4 g/dL Normal 13.0-16.5 [facility] Comment on above: Order Comment: 111.2 Performed By: #### L 501.2300, L500.4050, L100.0100 #### [facility] [address] [place], [address] IG% 0.400 Normal 0.0-0.9 [facility] Comment on above: Order Comment: 111.2 Result Comment: IG% - Immature Granulocytes (promyelocytes, myelocytes and metamyelocytes) > 1% indicates that a LEFT SHIFT is Present. Performed By: #### L 501.2300, L500.4050, L100.0100 #### [facility] [address] [place], [address] Lymphocytes/100 WBC (Bld) 20.2 % Normal 19-41 [facility] Comment on above: Order Comment: 111.2 Performed By: #### L 501.2300, L500.4050, L100.0100 #### [facility] [address] [place], [address] MCH (RBC) [Entitic mass] 29.7 pg Normal 27.0-32.0 [facility] Comment on above: Order Comment: 111.2 Performed By: #### L 501.2300, L500.4050, L100.0100 #### [facility] [address] [place], [address] MCHC (RBC) [Mass/Vol] 32.4 g/dL Normal 32-36 [facility] Comment on above: Order Comment: 111.2 Performed By: #### L 501.2300, L500.4050, L100.0100 #### [facility] [address] [place], [address] MCV (RBC) [Entitic vol] 91.6 fL Normal 80-94 [facility] Comment on above: Order Comment: 111.2 Performed By: #### L 501.2300, L500.4050, L100.0100 #### [facility] [address] [place], [address] Monocytes/100 WBC (Bld) 9.2 % Normal 0-10 [facility] Comment on above: Order Comment: 111.2 Performed By: #### L 501.2300, L500.4050, L100.0100 #### [facility] [address] [place], [address] Neutrophils/100 WBC (Bld) 65.7 % Normal 47-70 [facility] Comment on above: Order Comment: 111.2 Performed By: #### L 501.2300, L500.4050, L100.0100 #### [facility] [address] [place], [address] Nucleated RBC (Bld) [#/Vol] 0 10*3/uL Normal 0-5 [facility] Comment on above: Order Comment: 111.2 Performed By: #### L 501.2300, L500.4050, L100.0100 #### [facility] [address] [place], [address] Platelet mean volume (Bld) [Entitic vol] 9.7 fL Normal 6.2-12.0 [facility] Comment on above: Order Comment: 111.2 Performed By: #### L 501.2300, L500.4050, L100.0100 #### [facility] [address] [place], [address] Platelets (Bld) [#/Vol] 220 10*3/uL Normal 150-450 [facility] Comment on above: Order Comment: 111.2 Performed By: #### L 501.2300, L500.4050, L100.0100 #### [facility] [address] [place], [address] RBC (Bld) [#/Vol] 4.51 10*6/uL Low 4.6-6.2 [facility] Comment on above: Order Comment: 111.2 Performed By: #### L 501.2300, L500.4050, L100.0100 #### [facility] [address] [place], [address] RDW SD 44.3 fl High 35.1-43.9 [facility] Comment on above: Order Comment: 111.2 Performed By: #### L 501.2300, L500.4050, L100.0100 #### [facility] [address] [place], [address] WBC (Bld) [#/Vol] 10.4 10*3/uL Normal 4.4-11.0 [facility] Comment on above: Order Comment: 111.2 Performed By: #### L 501.2300, L500.4050, L100.0100 #### [facility] [address] [place], [address] Lithiumon 04-27-2024 LI 0.50 mmol/L Low 0.60-1.20 [facility] Comment on above: Order Comment: 111.2 Performed By: #### L 501.2300, L500.4050, L100.0100 #### [facility] [address] [place], [address] Renal Profileon 04-27-2024 Albumin [Mass/Vol] 3.2 g/dL Normal 3.2-5.0 [facility] Comment on above: Order Comment: 111.2 Performed By: #### L 501.2300, L500.4050, L100.0100 #### [facility] [address] [place], [address] BUN/CRE 12.0 RATIO Normal 10-20 [facility] Comment on above: Order Comment: 111.2 Performed By: #### L 501.2300, L500.4050, L100.0100 #### [facility] [address] [place], [address] CA,Total 9.3 mg/dL Normal 8.5-10.1 [facility] Comment on above: Order Comment: 111.2 Performed By: #### L 501.2300, L500.4050, L100.0100 #### [facility] [address] [place], [address] Chloride [Moles/Vol] 106 mmol/L Normal 98-107 [facility] Comment on above: Order Comment: 111.2 Performed By: #### L 501.2300, L500.4050, L100.0100 #### [facility] [address] [place], [address] CO2 [Moles/Vol] 24.0 mmol/L Normal 21.0-32.0 [facility] Comment on above: Order Comment: 111.2 Performed By: #### L 501.2300, L500.4050, L100.0100 #### [facility] [address] [place], [address] Creatinine [Mass/Vol] 2.17 mg/dL High 0.70-1.30 [facility] Comment on above: Order Comment: 111.2 Result Comment: The validity of the calculated GFR GFRAA in patients over 70 years has not been determined. Clinical correlation is essential. Performed By: #### L 501.2300, L500.4050, L100.0100 #### [facility] [address] [place], [address] EST GFR - AA 40 mL/min Low >60 [facility] Comment on above: Order Comment: 111.2 Result Comment: Afri can Armenian GFR Calc Performed By: #### L 501.2300, L500.4050, L100.0100 #### [facility] [address] [place], [address] GFR/1.73 sq M.predicted among non-blacks MDRD (S/P/Bld) [Vol rate/Area] 33 mL/min/{1.73_m2} Low >60 [facility] Comment on above: Order Comment: 111.2 Result Comment: Non- GFR Calc Performed By: #### L 501.2300, L500.4050, L100.0100 #### [facility] [address] [place], [address] Glucose [Mass/Vol] 131 mg/dL High 74-106 [facility] Comment on above: Order Comment: 111.2 Result Comment: Fast ing Glucose result greater than or equal to 126 mg/dL suggests DIABETES MELLITUS per A.D.A. criteria. Performed By: #### L 501.2300, L500.4050, L100.0100 #### [facility] [address] [place], [address] Phosphate [Mass/Vol] 4.3 mg/dL Normal 2.5-4.9 [facility] Comment on above: Order Comment: 111.2 Performed By: #### L 501.2300, L500.4050, L100.0100 #### [facility] [address] [place], [address] Potassium [Moles/Vol] 3.9 mmol/L Normal 3.5-5.1 [facility] Comment on above: Order Comment: 111.2 Performed By: #### L 501.2300, L500.4050, L100.0100 #### [facility] [address] [place], [address] Sodium [Moles/Vol] 139 mmol/L Normal 136-145 [facility] Comment on above: Order Comment: 111.2 Performed By: #### L 501.2300, L500.4050, L100.0100 #### [facility] [address] [place], [address] Urea nitrogen [Mass/Vol] 26 mg/dL High 7-18 [facility] Comment on above: Order Comment: 111.2 Performed By: #### L 501.2300, L500.4050, L100.0100 #### [facility] [address] [place], [address] Uric Acidon 04-27-2024 URIC 5.9 mg/dL Normal 3.5-7.2 [facility] Comment on above: Order Comment: 111.2 Result Comment: The drugs N-Acetylcysteine and Metamizole may falsely depress this assay. Performed By: #### L 501.2300, L500.4050, L100.0100 #### [facility] [address] [place], [address] CNPNon 03-19-2024 [facility] -- REGGIE LEÓN ([id number]) 1965 M Date Time Provider Department 03/19/24 RONNY COREAS During your visit today, we recorded the [...] 10 mg by mouth once daily. - Elzqz-5-XER-EPA-Fish Oil 1,000 mg (120 mg-180 mg) cap Take 1 capsule by mouth once daily. - PALIPERIDONE ORAL Take 6 mg by mouth as directed. Problem List As Of Date 03/19/2024 Noted Resolved Pneumonia, Organism Unspecified [J18.9] 01/29/2008 02/11/2010 Acute Gastritis without Mention of Hemorrhage [*05/28/2008 02/11/2010 Nontraumatic rupture of other tendons of foot a*10/08/2009 07/30/2016 Routine general medical examination at [facility]*10/21/2009 01/29/2013 Class: Chronic Bipolar affective disorder (HCC) [F31.9] 10/21/2009 Tobacco abuse [Z72.0] 10/21/2009 07/10/2018 Porokeratosis [Q82.8] 02/03/2010 Gastritis, chronic [K29.50] 02/11/2010 07/10/2018 Erosive esophagitis [K22.10] 02/11/2010 Achilles bursitis or tendinitis [M76.60] 03/20/2010 07/30/2016 Contusion of unspecified site [T14.8XXA] 03/30/2010 07/30/2016 Enthesopathy of unspecified site [M77.9] 11/25/2010 07/10/2018 Other physical therapy [[id number]] 11/25/2010 07/10/2018 Low HDL (under 40) [E78.6] [...] (obstructive sle (more content not included)... Normal [facility] Absolute lymphocyte countOrd ered By: Alfredo Phipps on 02-03-2024 Lymphocytes Auto (Unsp spec) [#/Vol] 2.12 10*3/uL 0.83-4.51 [facility] Automated lymphocyte count a s percentage of total leukocytesOrdered By: Alfredo Phipps on 02-03-2024 Lymphocytes/100 WBC Auto (Unsp spec) 20.5 % 19-41 [facility] Basophil percentageOrdered B y: Alfredo Phipps on 02-03-2024 Basophil percentage 4.0 mg/dL 2.5-4.9 [facility] WBC (Bld) 0.9 % 0-1 [facility] Chloride [Moles/Vol] 109 mmol/L 98-107 [facility] Eosinophils/100 WBC (Bld) 3.9 % 0-5 [facility] Glucose [Mass/Vol] 122 mg/dL 74-106 [facility] Comment on above: Fasting Glucose resu lt from 100 to 125 mg/dL suggests IMPAIRED HOMEOSTASIS per A.D.A. criteria. Hemoglobin (Bld) [Mass/Vol] 13.3 g/dL 13.0-16.5 [facility] Monocytes/100 WBC (Bld) 8.8 % 0-10 [facility] Neutrophils (Bld) [#/Vol] 6.8 10*3/uL 2.0-7.7 [facility] Neutrophils/100 WBC (Bld) 65.2 % 47-70 [facility] Potassium [Moles/Vol] 4.1 mmol/L 3.5-5.1 [facility] Sodium [Moles/Vol] 140 mmol/L 136-145 [facility] WBC (Bld) [#/Vol] 10.4 10*3/uL 4.4-11.0 [facility] Determination of erythrocyte mean corpuscular volume (MCV)Ordered By: Alfredo Phipps on 02-03-2024 MCV (RBC) [Entitic vol] 89.0 fL 80-94 [facility] Erythrocyte distribution wid th ratioOrdered By: Alfredo Phipps on 02-03-2024 Erythrocyte distribution width (RBC) [Ratio] 13.6 % 11.6-14.6 [facility] Erythrocyte distribution wid th standard deviationOrdered By: Alfredo Phipps on 02-03-2024 Erythrocyte distribution width (RBC) [Entitic vol] 44.2 fL 35.1-43.9 [facility] Hematocrit Auto (Bld) [Volum e fraction]Ordered By: Alfredo Phipps on 02-03-2024 Hematocrit (Bld) [Volume fraction] 40.4 % 40-54 [facility] Immature granulocytes/100 WB C Auto (Bld)Ordered By: Alfredo Phipps on 02-03-2024 Immature granulocytes/100 WBC (Bld) 0.700 % 0.0-0.9 [facility] Comment on above: IG% - Immature Granu locytes (promyelocytes, myelocytes and metamyelocytes) > 1% indicates that a LEFT SHIFT is Present. Laboratory - Chemistry and C hemistry - challengeOrdered By: Alfredo Phipps on 02-03-2024 CO2 [Moles/Vol] 24.0 mmol/L 21.0-32.0 [facility] Urea nitrogen/Creatinine [Mass ratio] 10.9 mg/mg 10-20 [facility] Laboratory - Hematology and Cell countsOrdered By: Alfredo Phipps on 02-03-2024 MCH (RBC) [Entitic mass] 29.3 pg 27.0-32.0 [facility] MCHC (RBC) [Mass/Vol] 32.9 g/dL 32-36 [facility] Nucleated RBC/100 WBC (Bld) [Ratio] 0 % 0-5 [facility] Platelet mean volume (Bld) [Entitic vol] 9.5 fL 6.2-12.0 [facility] Platelets (Bld) [#/Vol] 234 10*3/uL 150-450 [facility] No Panel InformationOrdered By: Alfredo Phipps on 02-03-2024 Estimated GFR (MDRD) Amer 48 mL/min >60 [facility] Comment on above: GFR Calc Estimated GFR (MDRD) Non-Af Amer 40 mL/min >60 [facility] Comment on above: Non- GFR Calc [place] Level 0.60 mmol/L 0.60-1.20 [facility] RBC Auto (Bld) [#/Vol]Ordere d By: Alfredo Phipps on 02-03-2024 RBC (Bld) [#/Vol] 4.54 10*6/uL 4.6-6.2 [facility] Serum or plasma calcium you urement (mass/volume)Ordered By: Alfredo Phipps on 02-03-2024 Calcium [Mass/Vol] 9.2 mg/dL 8.5-10.1 [facility] Serum or plasma creatinine m easurement (mass/volume)Ordered By: Alfredo Phipps on 02-03-2024 Creatinine [Mass/Vol] 1.84 mg/dL 0.70-1.30 [facility] Comment on above: The validity of the calculated GFR & GFRAA in patients over 70 years has not been determined. Clinical correlation is essential. Serum or plasma urea nitroge n measurement (mass/volume)Ordered By: Alfredo Phipps on 02-03-2024 Urea nitrogen [Mass/Vol] 20 mg/dL 7-18 [facility] Thin prep Papanicolaou smear with manual screeningOrdered By: Alfredo Phipps on 02-03-2024 Thin prep Papanicolaou smear with manual screening 3.0 g/dL 3.2-5.0 [facility] Protein (U) [Mass/Vol] 19.8 mg/dL 0.0-11.8 [facility] Urine creatinine measurement (mass/volume)Ordered By: Alfredo Phipps on 02-03-2024 Creatinine (U) [Mass/Vol] 116.00 mg/dL NO RANGE EST. [facility] Urine protein/creatinine mas s ratioOrdered By: Alfredo Phipps on 02-03-2024 Protein/Creatinine (U) [Mass ratio] 171 mg/g CRE 0-200 [facility] Absolute lymphocyte countOrd ered By: Alfredo Phipps on 01-06-2024 Lymphocytes Auto (Unsp spec) [#/Vol] 2.00 10*3/uL 0.83-4.51 [facility] Automated lymphocyte count a s percentage of total leukocytesOrdered By: Alfredo Phipps on 01-06-2024 Lymphocytes/100 WBC Auto (Unsp spec) 20.9 % 19-41 [facility] Basophil percentageOrdered B y: Alfredo Phipps on 01-06-2024 Basophil percentage 4.2 mg/dL 2.5-4.9 [facility] Basophils/100 WBC (Bld) 0.8 % 0-1 [facility] Chloride [Moles/Vol] 109 mmol/L 98-107 [facility] Eosinophils/100 WBC (Bld) 3.9 % 0-5 [facility] Glucose [Mass/Vol] 113 mg/dL 74-106 [facility] Comment on above: Fasting Glucose resu lt from 100 to 125 mg/dL suggests IMPAIRED HOMEOSTASIS per A.D.A. criteria. Hemoglobin (Bld) [Mass/Vol] 13.7 g/dL 13.0-16.5 [facility] Monocytes/100 WBC (Bld) 8.4 % 0-10 [facility] Neutrophils (Bld) [#/Vol] 6.3 10*3/uL 2.0-7.7 [facility] Neutrophils/100 WBC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 optimal LDL Cholesterol levels are recommended to be < 70 mg/dL Performed By: #### 5 7021-8 #### [facility] CLIA [id number] [address] [place] [address] [facility] LDL/HDL RATIO, NF 1.59 mg/dL Normal <2.54 [facility] Comment on above: Order Comment: Peewee zuniga Type: BLOOD SPECIMEN Ordering Facility: [facility] Address: [address] [place] [address] Result Comment: Terri saleh: 1. National Cholesterol Education Program ATP III Guideline At-A-Glance Quick Desk Reference: National Heart, Lung, and Blood Hendrix. National Institutes of Health. 2001: NIH Publication No. 01-3305. 2. An International Atherosclerosis Society position paper: global recommendations for the management of dyslipidemia: executive summary, Atherosclerosis. 2014: 232(2):410-413. Performed By: #### 5 7021-8 #### [facility] CLIA [id number] [address] [place] [address] [place] NON HDL CHOL, NF 107 mg/dL Normal <130 [facility] Comment on above: Order Comment: Peewee zuniga Type: BLOOD SPECIMEN Ordering Facility: [facility] Address: [address] [place] [address] Result Comment: <130 mg/dL, Optimal 130-159 mg/dL, Near optimal/above optimal 160-189 mg/dL, Borderline high 190-219 mg/dL, High >219 mg/dL, Very high Secondary prevention optimal non HDL Cholesterol levels are recommended to be <100 mg/dL Performed By: #### 5 7021-8 #### [facility] CLIA [id number] [address] [place] [address] T CHOL/HDL RATIO NF 4.34 mg/dL Normal <5.10 [facility] Comment on above: Order Comment: Peewee zuniga Type: BLOOD SPECIMEN Ordering Facility: [facility] Address: [address] [place] [address] Performed By: #### 5 7021-8 #### [facility] CLIA [id number] [address] [place] [address] [place] TRIGLYCERIDES, NF 280 mg/dL High <150 [facility] Comment on above: Order Comment: Peewee zuniga Type: BLOOD SPECIMEN Ordering Facility: [facility] Address: [address] [place] [address] Result Comment: <150 mg/dL, Normal 150-199 mg/dL, Borderline high 200-499 mg/dL, High >499 mg/dL, Very high Performed By: #### 5 7021-8 #### [facility] CLIA [id number] [address] [place] [address] [place] VLDL CHOLESTEROL, NF 56 mg/dL High <30 [facility] Comment on above: Order Comment: Speci men Type: BLOOD SPECIMEN Ordering Facility: [facility] Address: [address] [place], [place] [address] Performed By: #### 5 7021-8 #### [facility] CLIA [id number] [address] [place], [place] [address] [place] PHOSPHORUS INORGANICon 12-20 Phosphate [Mass/Vol] 2.1 mg/dL Low 2.7 - 4 .8 mg/dL [facility] PROTEIN CREATININE RATIOon 0 12-20-2023 Protein/Creatinine (U) [Mass ratio] 0.07 mg/mg <0.15 mg/mg [facility] PTH INTACT BLDon 12-20-2023 Parathyrin.intact [Mass/Vol] 121 pg/mL High 15 - 65 pg/mL [facility] PTH-Intact SerPl-mCncon 02- Parathyrin.intact [Mass/Vol] 121 pg/mL High 15-65 [facility] Comment on above: Order Comment: Speci men Type: BLOOD SPECIMEN Ordering Facility: [facility] Address: [address] [place], [place] [address] Performed By: #### 5 7021-8 #### [facility] CLIA [id number] [address] [place] [address] [place] Phosphate SerPl-mCncon 12-20 Phosphate [Mass/Vol] 2.1 mg/dL Low 2.7-4.8 [facility] Comment on above: Order Comment: Speci men Type: BLOOD SPECIMEN Ordering Facility: [facility] Address: [address] [place] [address] Performed By: #### 5 7021-8 #### [facility] CLIA [id number] [address] [place], [place] [address] [place] Prot/Creat Uron 12-20-2023 Protein/Creatinine (U) [Mass ratio] 0.07 mg/mg Normal <0.15 [facility] Comment on above: Order Comment: Speci men Type: BLOOD SPECIMEN Ordering Facility: [facility] Address: [address] [place] [address] Result Comment: Adul t Proteinuria Categories: <0.15 mg/mg is considered normal to mildly increased 0.15 - 0.50 mg/mg is considered moderately increased >0.50 mg/mg is considered severely increased KDIGO. (2013). KDIGO 2012 Clinical Practice Guideline for the Evaluation and Management of Chronic Kidney Disease. Official Journal of the International Society of Nephrology, 3(1), 1-150. Performed By: #### 5 7021-8 #### [facility] CLIA [id number] [address] [place] [address] [place] Protein/Creatinine (U) [Mass ratio]on 12-20-2023 Creatinine (U) [Mass/Vol] 103.8 mg/dL 20.0 - 300.0 mg/dL [facility] Protein (U) [Mass/Vol] 7 mg/dL 0 - 2 0 mg/dL [facility] Creatinine (U) [Mass/Vol] 103.8 mg/dL Normal 20.0-300.0 [facility] Comment on above: Order Comment: Derejei men Type: BLOOD SPECIMEN Ordering Facility: [facility] Address: [address] [place] [address] Performed By: #### 5 7021-8 #### [facility] CLIA [id number] [address] [place] [address] [place] Protein (U) [Mass/Vol] 7 mg/dL Normal 0-20 [facility] Comment on above: Order Comment: Speci men Type: BLOOD SPECIMEN Ordering Facility: [facility] Address: [address] [place] [address] Performed By: #### 5 7021-8 #### [facility] CLIA [id number] [address] [place] [address] [place] URINALYSIS, REFLEX MICROSCOP ICon 12-20-2023 Bilirubin Ql (U) Negative Negative [facility] Clarity (Unsp spec) Clear Clear [facility] Color (U) Light Yellow Yellow [facility] Glucose Test strip (U) [Mass/Vol] Negative Trace, Negative [facility] Hemoglobin Ql (U) Negative Negative, Trace [facility] Ketones Ql (U) Negative Negative, Trace [facility] Leukocyte esterase Test strip Ql (U) Negative Negative, 25 Mary/uL [facility] Nitrite Ql (U) Negative Negative [facility] pH (U) 6.0 [pH] 5.0 - 8.0 [facility] Protein (U) [Mass/Vol] Negative Trace , Negative [facility] Specific gravity (U) [Rel density] 1.010 1.005 - 1.030 [facility] Urobilinogen Ql (U) Normal Normal [facility] Bilirubin Ql (U) Negative Normal Negative [facility] Comment on above: Order Comment: Speci men Type: URINE SPECIMEN Ordering Facility: [facility] Address: [address] [place] [address] Performed By: #### L [id number] #### [facility] CLIA [id number] [address] [place] [address] [place] Clarity (Unsp spec) Clear Normal Clear [facility] Comment on above: Order Comment: Speci men Type: URINE SPECIMEN Ordering Facility: [facility] Address: [address] [place] [address] Performed By: #### L [id number] #### [facility] CLIA [id number] [address] [place] [address] [place] Color (U) Light Yellow Normal Yellow [facility] Comment on above: Order Comment: Speci men Type: URINE SPECIMEN Ordering Facility: [facility] Address: [address] [place] [address] Performed By: #### L [id number] #### [facility] CLIA [id number] [address] [place] [address] [place] Glucose Test strip (U) [Mass/Vol] Negative Normal Trace, Negative [facility] Comment on above: Order Comment: Speci men Type: URINE SPECIMEN Ordering Facility: [facility] Address: [address] [id number] Performed By: #### L [id number] #### [facility] CLIA [id number] [address] [place] [address] [place] Hemoglobin Ql (U) Negative Normal Negative, Trace [facility] Comment on above: Order Comment: Speci men Type: URINE SPECIMEN Ordering Facility: [facility] Address: [address] [place] [address] Performed By: #### L [id number] #### [facility] CLIA [id number] [address] [place] [address] [place] Ketones Ql (U) Negative Normal Negative, Trace [facility] Comment on above: Order Comment: Speci men Type: URINE SPECIMEN Ordering Facility: [facility] Address: [address] [place] [address] Performed By: #### L [id number] #### [facility] CLIA [id number] [address] [place] [address] [place] Leukocyte esterase Test strip Ql (U) Negative Normal Negative, 25 Mary/uL [facility] Comment on above: Order Comment: Speci men Type: URINE SPECIMEN Ordering Facility: [facility] Address: [address] [place] [address] Performed By: #### L [id number] #### [facility] CLIA [id number] [address] [place] [address] [place] Nitrite Ql (U) Negative Normal Negative [facility] Comment on above: Order Comment: Speci men Type: URINE SPECIMEN Ordering Facility: [facility] Address: [address] [place] [address] Performed By: #### L [id number] #### [facility] CLIA [id number] [address] [place] [address] [place] pH (U) 6.0 [pH] Normal 5.0-8.0 [facility] Comment on above: Order Comment: Speci men Type: URINE SPECIMEN Ordering Facility: [facility] Address: [address] [place] [address] Performed By: #### L [id number] #### [facility] CLIA [id number] [address] [place] [address] [place] Protein (U) [Mass/Vol] Negative Normal Trace , Negative [facility] Comment on above: Order Comment: Speci men Type: URINE SPECIMEN Ordering Facility: [facility] Address: [address] [place] [address] Performed By: #### L [id number] #### [facility] CLIA [id number] [address] [place] [address] [place] Specific gravity (U) [Rel density] 1.010 Normal 1.005-1.03 0 [facility] Comment on above: Order Comment: Speci men Type: URINE SPECIMEN Ordering Facility: [facility] Address: [address] [place] [address] Performed By: #### L [id number] #### [facility] CLIA [id number] [address] [place] [address] [place] Urobilinogen Ql (U) Normal Normal Normal [facility] Comment on above: Order Comment: Speci men Type: URINE SPECIMEN Ordering Facility: [facility] Address: [address] [place] [address] Performed By: #### L [id number] #### [facility] CLIA [id number] [address] [place] [address] [place] Absolute lymphocyte countOrd ered By: Alfredo Phipps on 12-09-2023 Lymphocytes Auto (Unsp spec) [#/Vol] 2.24 10*3/uL 0.83-4.51 [facility] Automated lymphocyte count a s percentage of total leukocytesOrdered By: Alfredo Phipps on 12-09-2023 Lymphocytes/100 WBC Auto (Unsp spec) 23.2 % 19-41 [facility] Basophil percentageOrdered B y: Alfredo Phipps on 12-09-2023 Basophil percentage 3.8 mg/dL 2.5-4.9 [facility] Basophils/100 WBC (Bld) 1.0 % 0-1 [facility] Chloride [Moles/Vol] 110 mmol/L 98-107 [facility] Eosinophils/100 WBC (Bld) 3.9 % 0-5 [facility] Glucose [Mass/Vol] 129 mg/dL 74-106 [facility] Comment on above: Fasting Glucose resu lt greater than or equal to 126 mg/dL suggests DIABETES MELLITUS per A.D.A. criteria. Hemoglobin (Bld) [Mass/Vol] 13.9 g/dL 13.0-16.5 [facility] Monocytes/100 WBC (Bld) 9.3 % 0-10 [facility] Neutrophils (Bld) [#/Vol] 6.0 10*3/uL 2.0-7.7 [facility] Neutrophils/100 WBC (Bld) 62.2 % 47-70 [facility] Potassium [Moles/Vol] 3.5 mmol/L 3.5-5.1 [facility] Sodium [Moles/Vol] 138 mmol/L 136-145 [facility] WBC (Bld) [#/Vol] 9.7 10*3/uL 4.4-11.0 [facility] Determination of erythrocyte mean corpuscular volume (MCV)Ordered By: Alfredo Phipps on 12-09-2023 MCV (RBC) [Entitic vol] 90.2 fL 80-94 [facility] Erythrocyte distribution wid th ratioOrdered By: Alfredo Phipps on 12-09-2023 Erythrocyte distribution width (RBC) [Ratio] 13.1 % 11.6-14.6 [facility] Erythrocyte distribution wid th standard deviationOrdered By: Alfredo Phipps on 12-09-2023 Erythrocyte distribution width (RBC) [Entitic vol] 43.2 fL 35.1-43.9 [facility] Hematocrit Auto (Bld) [Volum e fraction]Ordered By: Alfredo Phipps on 12-09-2023 Hematocrit (Bld) [Volume fraction] 43.2 % 40-54 [facility] Immature granulocytes/100 WB C Auto (Bld)Ordered By: Alfredo Phipps on 12-09-2023 Immature granulocytes/100 WBC (Bld) 0.400 % 0.0-0.9 [facility] Comment on above: IG% - Immature Granu locytes (promyelocytes, myelocytes and metamyelocytes) > 1% indicates that a LEFT SHIFT is Present. Laboratory - Chemistry and C hemistry - challengeOrdered By: Alfredo Phipps on 12-09-2023 CO2 [Moles/Vol] 21.0 mmol/L 21.0-32.0 [facility] Urea nitrogen/Creatinine [Mass ratio] 7.4 mg/mg 10-20 [facility] Laboratory - Hematology and Cell countsOrdered By: Alfredo Phipps on 12-09-2023 MCH (RBC) [Entitic mass] 29.0 pg 27.0-32.0 [facility] MCHC (RBC) [Mass/Vol] 32.2 g/dL 32-36 [facility] Nucleated RBC/100 WBC (Bld) [Ratio] 0 % 0-5 [facility] Platelets (Bld) [#/Vol] 235 10*3/uL 150-450 [facility] No Panel InformationOrdered By: Alfredo Phipps on 12-09-2023 Estimated GFR (MDRD) Amer 44 mL/min >60 [facility] Comment on above: GFR Calc Estimated GFR (MDRD) Non-Af Amer 36 mL/min >60 [facility] Comment on above: Non- GFR Calc [place] Level 0.40 mmol/L 0.60-1.20 [facility] Platelet mean volume Naresh-Ec ker (Bld) [Entitic vol]Ordered By: Alfredo Phipps on 12-09-2023 Platelet mean volume (Bld) [Entitic vol] 9.5 fL 6.2-12.0 [facility] RBC Auto (Bld) [#/Vol]Ordere d By: Alfredo Phipps on 12-09-2023 RBC (Bld) [#/Vol] 4.79 10*6/uL 4.6-6.2 [facility] Serum or plasma calcium you urement (mass/volume)Ordered By: Alfredo Phipps on 12-09-2023 Calcium [Mass/Vol] 9.3 mg/dL 8.5-10.1 [facility] Serum or plasma creatinine m easurement (mass/volume)Ordered By: Alfredo Phipps on 12-09-2023 Creatinine [Mass/Vol] 2.02 mg/dL 0.70-1.30 [facility] Comment on above: The validity of the calculated GFR & GFRAA in patients over 70 years has not been determined. Clinical correlation is essential. Serum or plasma urea nitroge n measurement (mass/volume)Ordered By: Alfredo Phipps on 12-09-2023 Urea nitrogen [Mass/Vol] 15 mg/dL 7-18 [facility] Thin prep Papanicolaou smear with manual screeningOrdered By: Alfredo Phipps on 12-09-2023 Thin prep Papanicolaou smear with manual screening 3.2 g/dL 3.2-5.0 [facility] Urine creatinine measurement (mass/volume)Ordered By: Adam Ferraro on 11-16-2023 Creatinine (U) [Mass/Vol] 178.00 mg/dL NO RANGE EST. [facility] Urine protein measurement (m ass/volume)Ordered By: Adam Ferraro on 11-16-2023 Protein (U) [Mass/Vol] 28.7 mg/dL 0.0-11.8 [facility] Urine protein/creatinine mas s ratioOrdered By: Adam Ferraro on 11-16-2023 Protein/Creatinine (U) [Mass ratio] 161 mg/g CRE 0-200 [facility] Absolute lymphocyte countOrd ered By: Adam Ferraro on 11-11-2023 Lymphocytes Auto (Unsp spec) [#/Vol] 3.10 10*3/uL 0.83-4.51 [facility] Basophil percentageOrdered B y: Adam Ferraro on 11-11-2023 Basophil percentage 3.6 mg/dL 2.5-4.9 [facility] Basophils/100 WBC (Bld) 0.8 % 0-1 [facility] Chloride [Moles/Vol] 108 mmol/L 98-107 [facility] Eosinophils/100 WBC (Bld) 3.4 % 0-5 [facility] Glucose [Mass/Vol] 120 mg/dL 74-106 [facility] Comment on above: Fasting Glucose resu lt from 100 to 125 mg/dL suggests IMPAIRED HOMEOSTASIS per A.D.A. criteria. Neutrophils (Bld) [#/Vol] 7.1 10*3/uL 2.0-7.7 [facility] Neutrophils/100 WBC (Bld) 61.0 % 47-70 [facility] Potassium [Moles/Vol] 3.6 mmol/L 3.5-5.1 [facility] Sodium [Moles/Vol] 140 mmol/L 136-145 [facility] WBC (Bld) [#/Vol] 11.6 10*3/uL 4.4-11.0 [facility] Blood erythrocytes count (nu mber/volume)Ordered By: Adam Ferraro on 11-11-2023 RBC (Bld) [#/Vol] 4.98 10*6/uL 4.6-6.2 [facility] Blood hemoglobin measurement (mass/volume)Ordered By: Adam Ferraro on 11-11-2023 Hemoglobin (Bld) [Mass/Vol] 14.4 g/dL 13.0-16.5 [facility] Blood lymphocytes/100 leukoc ytesOrdered By: Adam Ferraro on 11-11-2023 Lymphocytes/100 WBC (Bld) 26.7 % 19-41 [facility] Blood monocytes/100 leukocyt esOrdered By: Adam Ferraro on 11-11-2023 Monocytes/100 WBC (Bld) 7.3 % 0-10 [facility] Blood platelet mean volumeOr dered By: Adam Ferraro on 11-11-2023 Platelet mean volume (Bld) [Entitic vol] 9.4 fL 6.2-12.0 [facility] Determination of erythrocyte mean corpuscular volume (MCV)Ordered By: Adam Ferraro on 11-11-2023 MCV (RBC) [Entitic vol] 89.8 fL 80-94 [facility] Hematocrit Auto (Bld) [Volum e fraction]Ordered By: Adam Ferraro on 11-11-2023 Hematocrit (Bld) [Volume fraction] 44.7 % 40-54 [facility] Laboratory - Chemistry and C hemistry - challengeOrdered By: Adam Ferraro on 11-11-2023 CO2 [Moles/Vol] 24.0 mmol/L 21.0-32.0 [facility] Urea nitrogen/Creatinine [Mass ratio] 7.8 mg/mg 10-20 [facility] - Hematology and Cell countsOrdered By: Adam Ferraro on 11-11-2023 Erythrocyte distribution width (RBC) [Entitic vol] 42.7 fL 35.1-43.9 [facility] Erythrocyte distribution width (RBC) [Ratio] 13.1 % 11.6-14.6 [facility] Immature granulocytes/100 WBC (Bld) 0.800 % 0.0-0.9 [facility] Comment on above: IG% - Immature Granu locytes (promyelocytes, myelocytes and metamyelocytes) > 1% indicates that a LEFT SHIFT is Present. MCH (RBC) [Entitic mass] 28.9 pg 27.0-32.0 [facility] Nucleated RBC/100 WBC (Bld) [Ratio] 0 % 0-5 [facility] MCHC Auto (RBC) [Mass/Vol]Or dered By: Adam Ferraro on 11-11-2023 MCHC (RBC) [Mass/Vol] 32.2 g/dL 32-36 [facility] No Panel InformationOrdered By: Adam Ferraro on 11-11-2023 Estimated GFR (MDRD) Amer 37 mL/min >60 [facility] Comment on above: GFR Calc Estimated GFR (MDRD) Non-Af Amer 31 mL/min >60 [facility] Comment on above: Non- GFR Calc [place] Level 0.60 mmol/L 0.60-1.20 [facility] Platelets bldOrdered By: Benoit Ferraro on 11-11-2023 Platelets (Bld) [#/Vol] 252 10*3/uL 150-450 [facility] Serum or plasma albumin you urement (mass/volume)Ordered By: Adam Ferraro on 11-11-2023 Albumin [Mass/Vol] 3.1 g/dL 3.2-5.0 [facility] Serum or plasma calcium you urement (mass/volume)Ordered By: Adam Ferraro on 11-11-2023 Calcium [Mass/Vol] 8.9 mg/dL 8.5-10.1 [facility] Serum or plasma creatinine m easurement (mass/volume)Ordered By: Adam Ferraro on 11-11-2023 Creatinine [Mass/Vol] 2.31 mg/dL 0.70-1.30 [facility] Comment on above: The validity of the calculated GFR & GFRAA in patients over 70 years has not been determined. Clinical correlation is essential. Serum or plasma urea nitroge n measurement (mass/volume)Ordered By: Adam Ferraro on 11-11-2023 Urea nitrogen [Mass/Vol] 18 mg/dL 7-18 [facility] Serum or plasma uric acid me asurement (mass/volume)Ordered By: Adam Ferraro on 10-27-2023 Urate [Mass/Vol] 8.1 mg/dL 3.5-7.2 [facility] Comment on above: The drugs N-Acetylcy steine and Metamizole may falsely depress this assay. Absolute lymphocyte countOrd ered By: Alfredo Phipps on 10-14-2023 Lymphocytes Auto (Unsp spec) [#/Vol] 1.52 10*3/uL 0.83-4.51 [facility] Basophil percentageOrdered B y: Alfredo Phipps on 10-14-2023 Basophil percentage 3.2 mg/dL 2.5-4.9 [facility] Basophils/100 WBC (Bld) 1.2 % 0-1 [facility] Chloride [Moles/Vol] 110 mmol/L 98-107 [facility] Eosinophils/100 WBC (Bld) 5.0 % 0-5 [facility] Glucose [Mass/Vol] 151 mg/dL 74-106 [facility] Comment on above: Fasting Glucose resu lt greater than or equal to 126 mg/dL suggests DIABETES MELLITUS per A.D.A. criteria. Neutrophils (Bld) [#/Vol] 6.6 10*3/uL 2.0-7.7 [facility] Neutrophils/100 WBC (Bld) 68.8 % 47-70 [facility] Potassium [Moles/Vol] 3.8 mmol/L 3.5-5.1 [facility] Sodium [Moles/Vol] 141 mmol/L 136-145 [facility] WBC (Bld) [#/Vol] 9.5 10*3/uL 4.4-11.0 [facility] Blood erythrocytes count (nu mber/volume)Ordered By: Alfredo Phipps on 10-14-2023 RBC (Bld) [#/Vol] 4.51 10*6/uL 4.6-6.2 [facility] Blood hemoglobin measurement (mass/volume)Ordered By: Alfredo Phipps on 10-14-2023 Hemoglobin (Bld) [Mass/Vol] 13.0 g/dL 13.0-16.5 [facility] Blood lymphocytes/100 leukoc ytesOrdered By: Alfredo Phipps on 10-14-2023 Lymphocytes/100 WBC (Bld) 15.9 % 19-41 [facility] Blood monocytes/100 leukocyt esOrdered By: Alfredo Phipsp on 10-14-2023 Monocytes/100 WBC (Bld) 8.3 % 0-10 [facility] Blood platelet mean volumeOr dered By: Alfredo Phipps on 10-14-2023 Platelet mean volume (Bld) [Entitic vol] 9.7 fL 6.2-12.0 [facility] Determination of erythrocyte mean corpuscular volume (MCV)Ordered By: Alfredo Phipps on 10-14-2023 MCV (RBC) [Entitic vol] 90.2 fL 80-94 [facility] Hematocrit Auto (Bld) [Volum e fraction]Ordered By: Alfredo Phipps on 10-14-2023 Hematocrit (Bld) [Volume fraction] 40.7 % 40-54 [facility] Laboratory - Chemistry and C hemistry - challengeOrdered By: Alfredo Phipps on 10-14-2023 CO2 [Moles/Vol] 26.0 mmol/L 21.0-32.0 [facility] Urea nitrogen/Creatinine [Mass ratio] 7.5 mg/mg 10-20 [facility] - Hematology and Cell countsOrdered By: Alfredo Phipps on 10-14-2023 Erythrocyte distribution width (RBC) [Entitic vol] 43.6 fL 35.1-43.9 [facility] Erythrocyte distribution width (RBC) [Ratio] 13.2 % 11.6-14.6 [facility] Immature granulocytes/100 WBC (Bld) 0.800 % 0.0-0.9 [facility] Comment on above: IG% - Immature Granu locytes (promyelocytes, myelocytes and metamyelocytes) > 1% indicates that a LEFT SHIFT is Present. MCH (RBC) [Entitic mass] 28.8 pg 27.0-32.0 [facility] Nucleated RBC/100 WBC (Bld) [Ratio] 0 % 0-5 [facility] MCHC Auto (RBC) [Mass/Vol]Or dered By: Alfredo Phipps on 10-14-2023 MCHC (RBC) [Mass/Vol] 31.9 g/dL 32-36 [facility] No Panel InformationOrdered By: Alfredo Phipps on 10-14-2023 Estimated GFR (MDRD) Amer 41 mL/min >60 [facility] Comment on above: GFR Calc Estimated GFR (MDRD) Non-Af Amer 34 mL/min >60 [facility] Comment on above: Non- GFR Calc [place] Level 0.50 mmol/L 0.60-1.20 [facility] Platelets bldOrdered By: Jennifer Phipps on 10-14-2023 Platelets (Bld) [#/Vol] 224 10*3/uL 150-450 [facility] Serum or plasma albumin you urement (mass/volume)Ordered By: Alfredo Phipps on 10-14-2023 Albumin [Mass/Vol] 2.9 g/dL 3.2-5.0 [facility] Serum or plasma calcium you urement (mass/volume)Ordered By: Alfredo Phipps on 10-14-2023 Calcium [Mass/Vol] 8.5 mg/dL 8.5-10.1 [facility] Serum or plasma creatinine m easurement (mass/volume)Ordered By: Alfredo Phipps on 10-14-2023 Creatinine [Mass/Vol] 2.12 mg/dL 0.70-1.30 [facility] Comment on above: The validity of the calculated GFR & GFRAA in patients over 70 years has not been determined. Clinical correlation is essential. Serum or plasma urea nitroge n measurement (mass/volume)Ordered By: Alfredo Phipps on 10-14-2023 Urea nitrogen [Mass/Vol] 16 mg/dL 7-18 [facility] Urine creatinine measurement (mass/volume)Ordered By: Alfredo Phipps on 10-14-2023 Creatinine (U) [Mass/Vol] 195.00 mg/dL NO RANGE EST. [facility] Urine protein measurement (m ass/volume)Ordered By: Alfredo Phipps on 10-14-2023 Protein (U) [Mass/Vol] 23.4 mg/dL 0.0-11.8 [facility] Urine protein/creatinine mas s ratioOrdered By: Alfredo Phipps on 10-14-2023 Protein/Creatinine (U) [Mass ratio] 120 mg/g CRE 0-200 [facility] Serum or plasma uric acid me asurement (mass/volume)Ordered By: Adam Ferraro on 09-27-2023 Urate [Mass/Vol] 7.3 mg/dL 3.5-7.2 [facility] Comment on above: The drugs N-Acetylcy steine and Metamizole may falsely depress this assay. Absolute lymphocyte countOrd ered By: Alfredo Phipps on 09-16-2023 Lymphocytes Auto (Unsp spec) [#/Vol] 1.78 10*3/uL 0.83-4.51 [facility] Basophil percentageOrdered B y: Alfredo Phipps on 09-16-2023 Basophil percentage 4.3 mg/dL 2.5-4.9 [facility] Basophils/100 WBC (Bld) 1.0 % 0-1 [facility] Chloride [Moles/Vol] 109 mmol/L 98-107 [facility] Eosinophils/100 WBC (Bld) 4.4 % 0-5 [facility] Glucose [Mass/Vol] 143 mg/dL 74-106 [facility] Comment on above: Fasting Glucose resu lt greater than or equal to 126 mg/dL suggests DIABETES MELLITUS per A.D.A. criteria. Neutrophils (Bld) [#/Vol] 6.3 10*3/uL 2.0-7.7 [facility] Neutrophils/100 WBC (Bld) 67.0 % 47-70 [facility] Potassium [Moles/Vol] 4.1 mmol/L 3.5-5.1 [facility] Sodium [Moles/Vol] 139 mmol/L 136-145 [facility] WBC (Bld) [#/Vol] 9.4 10*3/uL 4.4-11.0 [facility] Blood erythrocytes count (nu mber/volume)Ordered By: Alfredo Phipps on 09-16-2023 RBC (Bld) [#/Vol] 4.63 10*6/uL 4.6-6.2 [facility] Blood hemoglobin measurement (mass/volume)Ordered By: Alfredo Phipps on 09-16-2023 Hemoglobin (Bld) [Mass/Vol] 13.4 g/dL 13.0-16.5 [facility] Blood lymphocytes/100 leukoc ytesOrdered By: Alfredo Phipps on 09-16-2023 Lymphocytes/100 WBC (Bld) 19.0 % 19-41 [facility] Blood monocytes/100 leukocyt esOrdered By: Alfredo Phipps on 09-16-2023 Monocytes/100 WBC (Bld) 8.3 % 0-10 [facility] Blood platelet mean volumeOr dered By: Alfredo Phipps on 09-16-2023 Platelet mean volume (Bld) [Entitic vol] 9.6 fL 6.2-12.0 [facility] Determination of erythrocyte mean corpuscular volume (MCV)Ordered By: Alfredo Phipps on 09-16-2023 MCV (RBC) [Entitic vol] 90.5 fL 80-94 [facility] Hematocrit Auto (Bld) [Volum e fraction]Ordered By: Alfredo Phipps on 09-16-2023 Hematocrit (Bld) [Volume fraction] 41.9 % 40-54 [facility] - Chemistry and C hemistry - challengeOrdered By: Alfredo Phipps on 09-16-2023 CO2 [Moles/Vol] 23.0 mmol/L 21.0-32.0 [facility] Urea nitrogen/Creatinine [Mass ratio] 11.6 mg/mg 10-20 [facility] - Hematology and Cell countsOrdered By: Alfredo Phipps on 09-16-2023 Erythrocyte distribution width (RBC) [Entitic vol] 46.1 fL 35.1-43.9 [facility] Erythrocyte distribution width (RBC) [Ratio] 13.9 % 11.6-14.6 [facility] Immature granulocytes/100 WBC (Bld) 0.300 % 0.0-0.9 [facility] Comment on above: IG% - Immature Granu locytes (promyelocytes, myelocytes and metamyelocytes) > 1% indicates that a LEFT SHIFT is Present. MCH (RBC) [Entitic mass] 28.9 pg 27.0-32.0 [facility] Nucleated RBC/100 WBC (Bld) [Ratio] 0 % 0-5 [facility] MCHC Auto (RBC) [Mass/Vol]Or dered By: Alfredo Phipps on 09-16-2023 MCHC (RBC) [Mass/Vol] 32.0 g/dL 32-36 [facility] No Panel InformationOrdered By: Alfredo Phipps on 09-16-2023 Estimated GFR (MDRD) Amer 45 mL/min >60 [facility] Comment on above: GFR Calc Estimated GFR (MDRD) Non-Af Amer 37 mL/min >60 [facility] Comment on above: Non- GFR Calc [place] Level 0.60 mmol/L 0.60-1.20 [facility] Platelets bldOrdered By: Jennifer Phipps on 09-16-2023 Platelets (Bld) [#/Vol] 212 10*3/uL 150-450 [facility] Serum or plasma albumin you urement (mass/volume)Ordered By: Alfredo Phipps on 09-16-2023 Albumin [Mass/Vol] 2.9 g/dL 3.2-5.0 [facility] Serum or plasma calcium you urement (mass/volume)Ordered By: Alfredo Phipps on 09-16-2023 Calcium [Mass/Vol] 9.0 mg/dL 8.5-10.1 [facility] Serum or plasma creatinine m easurement (mass/volume)Ordered By: Alfredo Phipps on 09-16-2023 Creatinine [Mass/Vol] 1.98 mg/dL 0.70-1.30 [facility] Comment on above: The validity of the calculated GFR & GFRAA in patients over 70 years has not been determined. Clinical correlation is essential. Serum or plasma urea nitroge n measurement (mass/volume)Ordered By: Alfredo Phipps on 09-16-2023 Urea nitrogen [Mass/Vol] 23 mg/dL 7-18 [facility] Urine creatinine measurement (mass/volume)Ordered By: Alfredo Phipps on 09-16-2023 Creatinine (U) [Mass/Vol] 44.20 mg/dL NO RANGE EST. [facility] Urine protein measurement (m ass/volume)Ordered By: Alfredo Phipps on 09-16-2023 Protein (U) [Mass/Vol] mg/dL 0.0-11.8 [facility] Urine protein/creatinine mas s ratioOrdered By: Alfredo Phipps on 09-16-2023 Protein/Creatinine (U) [Mass ratio] 131 mg/g CRE 0-200 [facility] Urine creatinine measurement (mass/volume)Ordered By: Adam Ferraro on 08-22-2023 Creatinine (U) [Mass/Vol] 105.00 mg/dL NO RANGE EST. [facility] Urine protein measurement (m ass/volume)Ordered By: Adam Ferraro on 08-22-2023 Protein (U) [Mass/Vol] 19.3 mg/dL 0.0-11.8 [facility] Urine protein/creatinine mas s ratioOrdered By: Adam Ferraro on 08-22-2023 Protein/Creatinine (U) [Mass ratio] 184 mg/g CRE 0-200 [facility] Absolute lymphocyte countOrd ered By: Adam Ferraro on 08-19-2023 Lymphocytes Auto (Unsp spec) [#/Vol] 2.02 10*3/uL 0.83-4.51 [facility] Basophil percentageOrdered B y: Adam Ferraro on 08-19-2023 Basophil percentage 4.0 mg/dL 2.5-4.9 [facility] Basophils/100 WBC (Bld) 0.7 % 0-1 [facility] Chloride [Moles/Vol] 108 mmol/L 98-107 [facility] Eosinophils/100 WBC (Bld) 4.4 % 0-5 [facility] Glucose [Mass/Vol] 161 mg/dL 74-106 [facility] Comment on above: Fasting Glucose resu lt greater than or equal to 126 mg/dL suggests DIABETES MELLITUS per A.D.A. criteria. Neutrophils (Bld) [#/Vol] 7.4 10*3/uL 2.0-7.7 [facility] Neutrophils/100 WBC (Bld) 66.8 % 47-70 [facility] Potassium [Moles/Vol] 3.9 mmol/L 3.5-5.1 [facility] Sodium [Moles/Vol] 140 mmol/L 136-145 [facility] WBC (Bld) [#/Vol] 11.1 10*3/uL 4.4-11.0 [facility] Blood erythrocytes count (nu mber/volume)Ordered By: Adam Ferraro on 08-19-2023 RBC (Bld) [#/Vol] 4.67 10*6/uL 4.6-6.2 [facility] Blood hemoglobin measurement (mass/volume)Ordered By: Adam Ferraro on 08-19-2023 Hemoglobin (Bld) [Mass/Vol] 13.5 g/dL 13.0-16.5 [facility] Blood lymphocytes/100 leukoc ytesOrdered By: Adam Ferraro on 08-19-2023 Lymphocytes/100 WBC (Bld) 18.3 % 19-41 [facility] Blood monocytes/100 leukocyt esOrdered By: Adam Ferraro on 08-19-2023 Monocytes/100 WBC (Bld) 9.1 % 0-10 [facility] Blood platelet mean volumeOr dered By: Adam Ferraro on 08-19-2023 Platelet mean volume (Bld) [Entitic vol] 9.4 fL 6.2-12.0 [facility] Determination of erythrocyte mean corpuscular volume (MCV)Ordered By: Adam Ferraro on 08-19-2023 MCV (RBC) [Entitic vol] 90.1 fL 80-94 [facility] Hematocrit Auto (Bld) [Volum e fraction]Ordered By: Adam Ferraro on 08-19-2023 Hematocrit (Bld) [Volume fraction] 42.1 % 40-54 [facility] - Chemistry and C hemistry - challengeOrdered By: Adam Ferraro on 08-19-2023 CO2 [Moles/Vol] 26.0 mmol/L 21.0-32.0 [facility] Urea nitrogen/Creatinine [Mass ratio] 10.9 mg/mg 10-20 [facility] - Hematology and Cell countsOrdered By: Adam Ferraro on 08-19-2023 Erythrocyte distribution width (RBC) [Entitic vol] 45.8 fL 35.1-43.9 [facility] Erythrocyte distribution width (RBC) [Ratio] 13.8 % 11.6-14.6 [facility] Immature granulocytes/100 WBC (Bld) 0.700 % 0.0-0.9 [facility] Comment on above: IG% - Immature Granu locytes (promyelocytes, myelocytes and metamyelocytes) > 1% indicates that a LEFT SHIFT is Present. MCH (RBC) [Entitic mass] 28.9 pg 27.0-32.0 [facility] Nucleated RBC/100 WBC (Bld) [Ratio] 0 % 0-5 [facility] MCHC Auto (RBC) [Mass/Vol]Or dered By: Adam Ferraro on 08-19-2023 MCHC (RBC) [Mass/Vol] 32.1 g/dL 32-36 [facility] No Panel InformationOrdered By: Adam Ferraro on 08-19-2023 Estimated GFR (MDRD) Amer 44 mL/min >60 [facility] Comment on above: GFR Calc Estimated GFR (MDRD) Non-Af Amer 36 mL/min >60 [facility] Comment on above: Non- GFR Calc [place] Level 0.50 mmol/L 0.60-1.20 [facility] Platelets bldOrdered By: Benoit Ferraro on 08-19-2023 Platelets (Bld) [#/Vol] 218 10*3/uL 150-450 [facility] Serum or plasma albumin you urement (mass/volume)Ordered By: Adam Ferraro on 08-19-2023 Albumin [Mass/Vol] 2.9 g/dL 3.2-5.0 [facility] Serum or plasma calcium you urement (mass/volume)Ordered By: Adam Ferraro on 08-19-2023 Calcium [Mass/Vol] 9.0 mg/dL 8.5-10.1 [facility] Serum or plasma creatinine m easurement (mass/volume)Ordered By: Adam Ferraro on 08-19-2023 Creatinine [Mass/Vol] 2.01 mg/dL 0.70-1.30 [facility] Comment on above: The validity of the calculated GFR & GFRAA in patients over 70 years has not been determined. Clinical correlation is essential. Serum or plasma urea nitroge n measurement (mass/volume)Ordered By: Adam Ferraro on 08-19-2023 Urea nitrogen [Mass/Vol] 22 mg/dL 7-18 [facility] Whole blood hemoglobin A1c/t otal hemoglobin ratio (mass fraction)Ordered By: Adam Ferraro on 08-19-2023 HbA1c (Bld) [Mass fraction] 7.2 % 3.8-5.6 [facility] Comment on above: Normal < 5.7 % Predi abetic 5.7 - 6.4 % Diabetic >or= 6.5 % Please note range changes. Basophil percentageOrdered B y: Adam Ferraro on 07-28-2023 Cholesterol [Mass/Vol] 124 mg/dL <200 [facility] Comment on above: <200 mg/dL Desirable 200-240 mg/dL Borderline >240 mg/dL High Risk Triglyceride [Mass/Vol] 234 mg/dL <199 [facility] Comment on above: The drugs N-Acetylcy steine and Metamizole may falsely depress this assay.Serum Triglycerides Reference Interval Normal <150 mg/dL Borderline high 150 - 199 mg/dL High 200 - 499 mg/dL Very High > or = 500 mg/dL Serum or plasma cholesterol in HDL measurement (mass/volume)Ordered By: Adam Ferraro on 07-28-2023 Cholesterol in HDL [Mass/Vol] 36 mg/dL >40 [facility] Comment on above: The drugs N-Acetylcy steine and Metamizole may falsely depress this assay. Reference Range HDL <40 mg/dL Low HDL Cholesterol HDL >or= 60 mg/dL High HDL Cholesterol Serum or plasma cholesterol in VLDL measurement (mass/volume)Ordered By: Adam Ferraro on 07-28-2023 Cholesterol in VLDL [Mass/Vol] 47 mg/dL 5-40 [facility] Serum or plasma low density lipoprotein (LDL) cholesterol measurement (mass/volume)Ordered By: Adam Ferraro on 07-28-2023 Cholesterol in LDL [Mass/Vol] 41 mg/dL 0-130 [facility] Serum or plasma uric acid me asurement (mass/volume)Ordered By: Adam Ferraro on 07-28-2023 Urate [Mass/Vol] 6.6 mg/dL 3.5-7.2 [facility] Comment on above: The drugs N-Acetylcy steine and Metamizole may falsely depress this assay. Urine creatinine measurement (mass/volume)Ordered By: Adam Ferraro on 07-24-2023 Creatinine (U) [Mass/Vol] 113.00 mg/dL NO RANGE EST. [facility] Urine protein measurement (m ass/volume)Ordered By: Adam Ferraro on 07-24-2023 Protein (U) [Mass/Vol] 15.1 mg/dL 0.0-11.8 [facility] Urine protein/creatinine mas s ratioOrdered By: Adam Ferraro on 07-24-2023 Protein/Creatinine (U) [Mass ratio] 134 mg/g CRE 0-200 [facility] Absolute lymphocyte countOrd ered By: Alfredo Phipps on 07-22-2023 Lymphocytes Auto (Unsp spec) [#/Vol] 1.60 10*3/uL 0.83-4.51 [facility] Basophil percentageOrdered B y: Alfredo Phipps on 07-22-2023 Basophil percentage 4.2 mg/dL 2.5-4.9 [facility] Basophils/100 WBC (Bld) 1.1 % 0-1 [facility] Chloride [Moles/Vol] 108 mmol/L 98-107 [facility] Eosinophils/100 WBC (Bld) 2.7 % 0-5 [facility] Glucose [Mass/Vol] 138 mg/dL 74-106 [facility] Comment on above: Fasting Glucose resu lt greater than or equal to 126 mg/dL suggests DIABETES MELLITUS per A.D.A. criteria. Neutrophils (Bld) [#/Vol] 6.9 10*3/uL 2.0-7.7 [facility] Neutrophils/100 WBC (Bld) 69.3 % 47-70 [facility] Potassium [Moles/Vol] 3.8 mmol/L 3.5-5.1 [facility] Sodium [Moles/Vol] 135 mmol/L 136-145 [facility] WBC (Bld) [#/Vol] 9.9 10*3/uL 4.4-11.0 [facility] Blood erythrocytes count (nu mber/volume)Ordered By: Alfredo Pihpps on 07-22-2023 RBC (Bld) [#/Vol] 4.79 10*6/uL 4.6-6.2 [facility] Blood hemoglobin measurement (mass/volume)Ordered By: Alfredo Phipps on 07-22-2023 Hemoglobin (Bld) [Mass/Vol] 13.6 g/dL 13.0-16.5 [facility] Blood lymphocytes/100 leukoc ytesOrdered By: Alfredo Phipps on 07-22-2023 Lymphocytes/100 WBC (Bld) 16.1 % 19-41 [facility] Blood monocytes/100 leukocyt esOrdered By: Alfredo Phipps on 07-22-2023 Monocytes/100 WBC (Bld) 10.2 % 0-10 [facility] Blood platelet mean volumeOr dered By: Alfredo Phipps on 07-22-2023 Platelet mean volume (Bld) [Entitic vol] 10.8 fL 6.2-12.0 [facility] Determination of erythrocyte mean corpuscular volume (MCV)Ordered By: Alfredo Phipps on 07-22-2023 MCV (RBC) [Entitic vol] 98.1 fL 80-94 [facility] Hematocrit Auto (Bld) [Volum e fraction]Ordered By: Alfredo Phipps on 07-22-2023 Hematocrit (Bld) [Volume fraction] 47.0 % 40-54 [facility] - Chemistry and C hemistry - challengeOrdered By: Alfredo Phipps on 07-22-2023 CO2 [Moles/Vol] 19.0 mmol/L 21.0-32.0 [facility] Urea nitrogen/Creatinine [Mass ratio] 10.7 mg/mg 10-20 [facility] - Hematology and Cell countsOrdered By: Alfredo Phipps on 07-22-2023 Erythrocyte distribution width (RBC) [Entitic vol] 58.0 fL 35.1-43.9 [facility] Erythrocyte distribution width (RBC) [Ratio] 16.4 % 11.6-14.6 [facility] Immature granulocytes/100 WBC (Bld) 0.600 % 0.0-0.9 [facility] Comment on above: IG% - Immature Granu locytes (promyelocytes, myelocytes and metamyelocytes) > 1% indicates that a LEFT SHIFT is Present. MCH (RBC) [Entitic mass] 28.4 pg 27.0-32.0 [facility] Nucleated RBC/100 WBC (Bld) [Ratio] 0 % 0-5 [facility] MCHC Auto (RBC) [Mass/Vol]Or dered By: Alfredo Phipps on 07-22-2023 MCHC (RBC) [Mass/Vol] 28.9 g/dL 32-36 [facility] No Panel InformationOrdered By: Alfredo Phipps on 07-22-2023 Estimated GFR (MDRD) Amer 45 mL/min >60 [facility] Comment on above: GFR Calc Estimated GFR (MDRD) Non-Af Amer 37 mL/min >60 [facility] Comment on above: Non- GFR Calc [place] Level 0.60 mmol/L 0.60-1.20 [facility] Platelets bldOrdered By: Jennifer Phipps on 07-22-2023 Platelets (Bld) [#/Vol] 209 10*3/uL 150-450 [facility] Serum or plasma albumin you urement (mass/volume)Ordered By: Alfredo Phipps on 07-22-2023 Albumin [Mass/Vol] 2.6 g/dL 3.2-5.0 [facility] Serum or plasma calcium you urement (mass/volume)Ordered By: Alfredo Phipps on 07-22-2023 Calcium [Mass/Vol] 9.1 mg/dL 8.5-10.1 [facility] Serum or plasma creatinine m easurement (mass/volume)Ordered By: Alfredo Phipps on 07-22-2023 Creatinine [Mass/Vol] 1.97 mg/dL 0.70-1.30 [facility] Comment on above: The validity of the calculated GFR & GFRAA in patients over 70 years has not been determined. Clinical correlation is essential. Serum or plasma urea nitroge n measurement (mass/volume)Ordered By: Alfredo Phipps on 07-22-2023 Urea nitrogen [Mass/Vol] 21 mg/dL 7-18 [facility] Absolute lymphocyte countOrd ered By: Alfredo Phipps on 06-24-2023 Lymphocytes Auto (Unsp spec) [#/Vol] 2.04 10*3/uL 0.83-4.51 [facility] Basophil percentageOrdered B y: Alfredo Phipps on 06-24-2023 Basophil percentage 4.4 mg/dL 2.5-4.9 [facility] Basophils/100 WBC (Bld) 1.2 % 0-1 [facility] Chloride [Moles/Vol] 107 mmol/L 98-107 [facility] Eosinophils/100 WBC (Bld) 5.2 % 0-5 [facility] Glucose [Mass/Vol] 144 mg/dL 74-106 [facility] Comment on above: Fasting Glucose resu lt greater than or equal to 126 mg/dL suggests DIABETES MELLITUS per A.D.A. criteria. Neutrophils (Bld) [#/Vol] 5.9 10*3/uL 2.0-7.7 [facility] Neutrophils/100 WBC (Bld) 62.3 % 47-70 [facility] Potassium [Moles/Vol] 3.7 mmol/L 3.5-5.1 [facility] Sodium [Moles/Vol] 138 mmol/L 136-145 [facility] WBC (Bld) [#/Vol] 9.4 10*3/uL 4.4-11.0 [facility] Blood erythrocytes count (nu mber/volume)Ordered By: Alfredo Phipps on 06-24-2023 RBC (Bld) [#/Vol] 4.95 10*6/uL 4.6-6.2 [facility] Blood hemoglobin measurement (mass/volume)Ordered By: Alfredo Phipps on 06-24-2023 Hemoglobin (Bld) [Mass/Vol] 14.2 g/dL 13.0-16.5 [facility] Blood lymphocytes/100 leukoc ytesOrdered By: Alfredo Phipps on 06-24-2023 Lymphocytes/100 WBC (Bld) 21.7 % 19-41 [facility] Blood monocytes/100 leukocyt esOrdered By: Alfredo Phipps on 06-24-2023 Monocytes/100 WBC (Bld) 9.1 % 0-10 [facility] Blood platelet mean volumeOr dered By: Alfredo Phipps on 06-24-2023 Platelet mean volume (Bld) [Entitic vol] 9.8 fL 6.2-12.0 [facility] Determination of erythrocyte mean corpuscular volume (MCV)Ordered By: Alfredo Phipps on 06-24-2023 MCV (RBC) [Entitic vol] 88.5 fL 80-94 [facility] Hematocrit Auto (Bld) [Volum e fraction]Ordered By: Alfredo Phipps on 06-24-2023 Hematocrit (Bld) [Volume fraction] 43.8 % 40-54 [facility] - Chemistry and C hemistry - challengeOrdered By: Alfredo Phipps on 06-24-2023 CO2 [Moles/Vol] 25.0 mmol/L 21.0-32.0 [facility] Urea nitrogen/Creatinine [Mass ratio] 11.5 mg/mg 10-20 [facility] - Hematology and Cell countsOrdered By: Alfredo Pihpps on 06-24-2023 Erythrocyte distribution width (RBC) [Entitic vol] 42.3 fL 35.1-43.9 [facility] Erythrocyte distribution width (RBC) [Ratio] 13.1 % 11.6-14.6 [facility] Immature granulocytes/100 WBC (Bld) 0.500 % 0.0-0.9 [facility] Comment on above: IG% - Immature Granu locytes (promyelocytes, myelocytes and metamyelocytes) > 1% indicates that a LEFT SHIFT is Present. MCH (RBC) [Entitic mass] 28.7 pg 27.0-32.0 [facility] Nucleated RBC/100 WBC (Bld) [Ratio] 0 % 0-5 [facility] MCHC Auto (RBC) [Mass/Vol]Or dered By: Alfredo Phipps on 06-24-2023 MCHC (RBC) [Mass/Vol] 32.4 g/dL 32-36 [facility] No Panel InformationOrdered By: Alfredo Phipps on 06-24-2023 Estimated GFR (MDRD) Amer 49 mL/min >60 [facility] Comment on above: GFR Calc Estimated GFR (MDRD) Non-Af Amer 40 mL/min >60 [facility] Comment on above: Non- GFR Calc [place] Level 0.60 mmol/L 0.60-1.20 [facility] Platelets bldOrdered By: Jennifer Phipps on 06-24-2023 Platelets (Bld) [#/Vol] 213 10*3/uL 150-450 [facility] Serum or plasma albumin you urement (mass/volume)Ordered By: Alfredo Phipps on 06-24-2023 Albumin [Mass/Vol] 2.9 g/dL 3.2-5.0 [facility] Serum or plasma calcium you urement (mass/volume)Ordered By: Alfredo Phipps on 06-24-2023 Calcium [Mass/Vol] 9.1 mg/dL 8.5-10.1 [facility] Serum or plasma creatinine m easurement (mass/volume)Ordered By: Alfredo Phipps on 06-24-2023 Creatinine [Mass/Vol] 1.83 mg/dL 0.70-1.30 [facility] Comment on above: The validity of the calculated GFR & GFRAA in patients over 70 years has not been determined. Clinical correlation is essential. Serum or plasma urea nitroge n measurement (mass/volume)Ordered By: Alfredo Phipps on 06-24-2023 Urea nitrogen [Mass/Vol] 21 mg/dL 7-18 [facility] Serum or plasma uric acid me asurement (mass/volume)Ordered By: Alfredo Phipps on 06-24-2023 Urate [Mass/Vol] 6.5 mg/dL 3.5-7.2 [facility] Comment on above: The drugs N-Acetylcy steine and Metamizole may falsely depress this assay. Urine creatinine measurement (mass/volume)Ordered By: Alfredo Phipps on 06-24-2023 Creatinine (U) [Mass/Vol] 127.00 mg/dL NO RANGE EST. [facility] Urine protein measurement (m ass/volume)Ordered By: Alfredo Phipps on 06-24-2023 Protein (U) [Mass/Vol] 19.9 mg/dL 0.0-11.8 [facility] Urine protein/creatinine mas s ratioOrdered By: Alfredo Phipps on 06-24-2023 Protein/Creatinine (U) [Mass ratio] 157 mg/g CRE 0-200 [facility] Urine creatinine measurement (mass/volume)Ordered By: Adam Ferraro on 05-30-2023 Creatinine (U) [Mass/Vol] 73.90 mg/dL NO RANGE EST. [facility] Urine protein measurement (m ass/volume)Ordered By: Adam Ferraro on 05-30-2023 Protein (U) [Mass/Vol] 18.0 mg/dL 0.0-11.8 [facility] Urine protein/creatinine mas s ratioOrdered By: Adam Ferraro on 05-30-2023 Protein/Creatinine (U) [Mass ratio] 244 mg/g CRE 0-200 [facility] Absolute lymphocyte countOrd ered By: Adam Ferraro on 05-27-2023 Lymphocytes Auto (Unsp spec) [#/Vol] 1.85 10*3/uL 0.83-4.51 [facility] Basophil percentageOrdered B y: Adam Ferraro on 05-27-2023 Basophil percentage 3.9 mg/dL 2.5-4.9 [facility] Basophils/100 WBC (Bld) 1.1 % 0-1 [facility] Chloride [Moles/Vol] 106 mmol/L 98-107 [facility] Eosinophils/100 WBC (Bld) 3.3 % 0-5 [facility] Glucose [Mass/Vol] 208 mg/dL 74-106 [facility] Comment on above: Glucose result great er than or equal to 200 mg/dLsuggests DIABETES MELLITUS per A.D.A. criteria. Neutrophils (Bld) [#/Vol] 5.6 10*3/uL 2.0-7.7 [facility] Neutrophils/100 WBC (Bld) 64.5 % 47-70 [facility] Potassium [Moles/Vol] 3.7 mmol/L 3.5-5.1 [facility] Sodium [Moles/Vol] 138 mmol/L 136-145 [facility] WBC (Bld) [#/Vol] 8.7 10*3/uL 4.4-11.0 [facility] Blood erythrocytes count (nu mber/volume)Ordered By: Adam Ferraro on 05-27-2023 RBC (Bld) [#/Vol] 4.98 10*6/uL 4.6-6.2 [facility] Blood hemoglobin measurement (mass/volume)Ordered By: Adam Ferraro on 05-27-2023 Hemoglobin (Bld) [Mass/Vol] 14.4 g/dL 13.0-16.5 [facility] Blood lymphocytes/100 leukoc ytesOrdered By: Adam Ferraro on 05-27-2023 Lymphocytes/100 WBC (Bld) 21.2 % 19-41 [facility] Blood monocytes/100 leukocyt esOrdered By: Adam Ferraro on 05-27-2023 Monocytes/100 WBC (Bld) 9.3 % 0-10 [facility] Blood platelet mean volumeOr dered By: Adam Ferraro on 05-27-2023 Platelet mean volume (Bld) [Entitic vol] 10.0 fL 6.2-12.0 [facility] Determination of erythrocyte mean corpuscular volume (MCV)Ordered By: Adam Ferraro on 05-27-2023 MCV (RBC) [Entitic vol] 89.6 fL 80-94 [facility] Hematocrit Auto (Bld) [Volum e fraction]Ordered By: Adam Ferraro on 05-27-2023 Hematocrit (Bld) [Volume fraction] 44.6 % 40-54 [facility] - Chemistry and C hemistry - challengeOrdered By: Adam Ferraro on 05-27-2023 CO2 [Moles/Vol] 27.0 mmol/L 21.0-32.0 [facility] Urea nitrogen/Creatinine [Mass ratio] 11.5 mg/mg 10-20 [facility] - Hematology and Cell countsOrdered By: Adam Ferraro on 05-27-2023 Erythrocyte distribution width (RBC) [Entitic vol] 42.2 fL 35.1-43.9 [facility] Erythrocyte distribution width (RBC) [Ratio] 13.0 % 11.6-14.6 [facility] Immature granulocytes/100 WBC (Bld) 0.600 % 0.0-0.9 [facility] Comment on above: IG% - Immature Granu locytes (promyelocytes, myelocytes and metamyelocytes) > 1% indicates that a LEFT SHIFT is Present. MCH (RBC) [Entitic mass] 28.9 pg 27.0-32.0 [facility] Nucleated RBC/100 WBC (Bld) [Ratio] 0 % 0-5 [facility] MCHC Auto (RBC) [Mass/Vol]Or dered By: Adam Ferraro on 05-27-2023 MCHC (RBC) [Mass/Vol] 32.3 g/dL 32-36 [facility] No Panel InformationOrdered By: Adam Ferraro on 05-27-2023 Estimated GFR (MDRD) Amer 52 mL/min >60 [facility] Comment on above: GFR Calc Estimated GFR (MDRD) Non-Af Amer 43 mL/min >60 [facility] Comment on above: Non- GFR Calc [place] Level 0.40 mmol/L 0.60-1.20 [facility] Platelets bldOrdered By: Benoit Ferraro on 05-27-2023 Platelets (Bld) [#/Vol] 211 10*3/uL 150-450 [facility] Serum or plasma albumin you urement (mass/volume)Ordered By: Adam Ferraro on 05-27-2023 Albumin [Mass/Vol] 2.9 g/dL 3.2-5.0 [facility] Serum or plasma calcium you urement (mass/volume)Ordered By: Adam Ferraro on 05-27-2023 Calcium [Mass/Vol] 9.2 mg/dL 8.5-10.1 [facility] Serum or plasma creatinine m easurement (mass/volume)Ordered By: Adam Ferraro on 05-27-2023 Creatinine [Mass/Vol] 1.74 mg/dL 0.70-1.30 [facility] Comment on above: The validity of the calculated GFR & GFRAA in patients over 70 years has not been determined. Clinical correlation is essential. Serum or plasma urea nitroge n measurement (mass/volume)Ordered By: Adam Ferraro on 05-27-2023 Urea nitrogen [Mass/Vol] 20 mg/dL 7-18 [facility] Serum or plasma uric acid me asurement (mass/volume)Ordered By: Adam Ferraro on 05-27-2023 Urate [Mass/Vol] 4.9 mg/dL 3.5-7.2 [facility] Comment on above: The drugs N-Acetylcy steine and Metamizole may falsely depress this assay. Whole blood hemoglobin A1c/t otal hemoglobin ratio (mass fraction)Ordered By: Adam Ferraro on 05-19-2023 HbA1c (Bld) [Mass fraction] 11.1 % 3.8-5.6 [facility] Comment on above: Normal < 5.7 % Predi abetic 5.7 - 6.4 % Diabetic >or= 6.5 % Please note range changes. Absolute lymphocyte countOrd ered By: Alfredo Phipps on 04-29-2023 Lymphocytes Auto (Unsp spec) [#/Vol] 1.98 10*3/uL 0.83-4.51 [facility] Basophil percentageOrdered B y: Alfredo Phipps on 04-29-2023 Basophil percentage 3.6 mg/dL 2.5-4.9 [facility] Basophils/100 WBC (Bld) 1.0 % 0-1 [facility] Chloride [Moles/Vol] 105 mmol/L 98-107 [facility] Eosinophils/100 WBC (Bld) 2.7 % 0-5 [facility] Glucose [Mass/Vol] 300 mg/dL 74-106 [facility] Comment on above: Glucose result great er than or equal to 200 mg/dLsuggests DIABETES MELLITUS per A.D.A. criteria. Neutrophils (Bld) [#/Vol] 5.7 10*3/uL 2.0-7.7 [facility] Neutrophils/100 WBC (Bld) 64.2 % 47-70 [facility] Potassium [Moles/Vol] 3.9 mmol/L 3.5-5.1 [facility] Sodium [Moles/Vol] 138 mmol/L 136-145 [facility] WBC (Bld) [#/Vol] 8.9 10*3/uL 4.4-11.0 [facility] Blood erythrocytes count (nu mber/volume)Ordered By: Alfredo Phipps on 04-29-2023 RBC (Bld) [#/Vol] 4.74 10*6/uL 4.6-6.2 [facility] Blood hemoglobin measurement (mass/volume)Ordered By: Alfredo Phipps on 04-29-2023 Hemoglobin (Bld) [Mass/Vol] 13.6 g/dL 13.0-16.5 [facility] Blood lymphocytes/100 leukoc ytesOrdered By: Alfredo Phipps on 04-29-2023 Lymphocytes/100 WBC (Bld) 22.2 % 19-41 [facility] Blood monocytes/100 leukocyt esOrdered By: Alfredo Phipps on 04-29-2023 Monocytes/100 WBC (Bld) 9.2 % 0-10 [facility] Blood platelet mean volumeOr dered By: Alfredo Phipps on 04-29-2023 Platelet mean volume (Bld) [Entitic vol] 9.7 fL 6.2-12.0 [facility] Determination of erythrocyte mean corpuscular volume (MCV)Ordered By: Alfredo Phipps on 04-29-2023 MCV (RBC) [Entitic vol] 87.8 fL 80-94 [facility] Hematocrit Auto (Bld) [Volum e fraction]Ordered By: Alfredo Phipps on 04-29-2023 Hematocrit (Bld) [Volume fraction] 41.6 % 40-54 [facility] - Chemistry and C hemistry - challengeOrdered By: Alfredo Phipps on 04-29-2023 CO2 [Moles/Vol] 24.0 mmol/L 21.0-32.0 [facility] Urea nitrogen/Creatinine [Mass ratio] 13.7 mg/mg 10-20 [facility] - Hematology and Cell countsOrdered By: Alfredo Phipps on 04-29-2023 Erythrocyte distribution width (RBC) [Entitic vol] 41.7 fL 35.1-43.9 [facility] Erythrocyte distribution width (RBC) [Ratio] 12.9 % 11.6-14.6 [facility] Immature granulocytes/100 WBC (Bld) 0.700 % 0.0-0.9 [facility] Comment on above: IG% - Immature Granu locytes (promyelocytes, myelocytes and metamyelocytes) > 1% indicates that a LEFT SHIFT is Present. MCH (RBC) [Entitic mass] 28.7 pg 27.0-32.0 [facility] Nucleated RBC/100 WBC (Bld) [Ratio] 0 % 0-5 [facility] MCHC Auto (RBC) [Mass/Vol]Or dered By: Alfredo Phipps on 04-29-2023 MCHC (RBC) [Mass/Vol] 32.7 g/dL 32-36 [facility] No Panel InformationOrdered By: Alfredo Phipps on 04-29-2023 Estimated GFR (MDRD) Amer 51 mL/min >60 [facility] Comment on above: GFR Calc Estimated GFR (MDRD) Non-Af Amer 43 mL/min >60 [facility] Comment on above: Non- GFR Calc [place] Level 0.40 mmol/L 0.60-1.20 [facility] Platelets bldOrdered By: Jennifer Phipps on 04-29-2023 Platelets (Bld) [#/Vol] 204 10*3/uL 150-450 [facility] Serum or plasma albumin you urement (mass/volume)Ordered By: Alfredo Phipps on 04-29-2023 Albumin [Mass/Vol] 2.7 g/dL 3.2-5.0 [facility] Serum or plasma calcium you urement (mass/volume)Ordered By: Alfredo Phipps on 04-29-2023 Calcium [Mass/Vol] 8.9 mg/dL 8.5-10.1 [facility] Serum or plasma creatinine m easurement (mass/volume)Ordered By: Alfredo Phipps on 04-29-2023 Creatinine [Mass/Vol] 1.75 mg/dL 0.70-1.30 [facility] Comment on above: The validity of the calculated GFR & GFRAA in patients over 70 years has not been determined. Clinical correlation is essential. Serum or plasma urea nitroge n measurement (mass/volume)Ordered By: Alfredo Phipps on 04-29-2023 Urea nitrogen [Mass/Vol] 24 mg/dL 7-18 [facility] Serum or plasma uric acid me asurement (mass/volume)Ordered By: Alfredo Phipps on 04-27-2023 Urate [Mass/Vol] 4.8 mg/dL 3.5-7.2 [facility] Comment on above: The drugs N-Acetylcy steine and Metamizole may falsely depress this assay. Urine creatinine measurement (mass/volume)Ordered By: Adam Ferraro on 04-04-2023 Creatinine (U) [Mass/Vol] 96.50 mg/dL NO RANGE EST. [facility] Urine protein measurement (m ass/volume)Ordered By: Adam Ferraro on 04-04-2023 Protein (U) [Mass/Vol] 26.4 mg/dL 0.0-11.8 [facility] Urine protein/creatinine mas s ratioOrdered By: Adam Ferraro on 04-04-2023 Protein/Creatinine (U) [Mass ratio] 274 mg/g CRE 0-200 [facility] Absolute lymphocyte countOrd ered By: Adam Ferraro on 04-01-2023 Lymphocytes Auto (Unsp spec) [#/Vol] 1.91 10*3/uL 0.83-4.51 [facility] Basophil percentageOrdered B y: Adam Ferraro on 04-01-2023 Basophil percentage 3.3 mg/dL 2.5-4.9 [facility] Basophils/100 WBC (Bld) 1.1 % 0-1 [facility] Chloride [Moles/Vol] 105 mmol/L 98-107 [facility] Eosinophils/100 WBC (Bld) 2.7 % 0-5 [facility] Glucose [Mass/Vol] 317 mg/dL 74-106 [facility] Comment on above: Glucose result great er than or equal to 200 mg/dLsuggests DIABETES MELLITUS per A.D.A. criteria. Neutrophils (Bld) [#/Vol] 5.4 10*3/uL 2.0-7.7 [facility] Neutrophils/100 WBC (Bld) 64.7 % 47-70 [facility] Potassium [Moles/Vol] 3.8 mmol/L 3.5-5.1 [facility] Sodium [Moles/Vol] 137 mmol/L 136-145 [facility] WBC (Bld) [#/Vol] 8.4 10*3/uL 4.4-11.0 [facility] Blood erythrocytes count (nu mber/volume)Ordered By: Adam Ferraro on 04-01-2023 RBC (Bld) [#/Vol] 5.17 10*6/uL 4.6-6.2 [facility] Blood hemoglobin measurement (mass/volume)Ordered By: Adam Ferraro on 04-01-2023 Hemoglobin (Bld) [Mass/Vol] 14.7 g/dL 13.0-16.5 [facility] Blood lymphocytes/100 leukoc ytesOrdered By: Adam Ferraro on 04-01-2023 Lymphocytes/100 WBC (Bld) 22.7 % 19-41 [facility] Blood monocytes/100 leukocyt esOrdered By: Adam Ferraro on 04-01-2023 Monocytes/100 WBC (Bld) 8.2 % 0-10 [facility] Blood platelet mean volumeOr dered By: Adam Ferraro on 04-01-2023 Platelet mean volume (Bld) [Entitic vol] 9.8 fL 6.2-12.0 [facility] Determination of erythrocyte mean corpuscular volume (MCV)Ordered By: Adam Ferraro on 04-01-2023 MCV (RBC) [Entitic vol] 88.6 fL 80-94 [facility] Hematocrit Auto (Bld) [Volum e fraction]Ordered By: Adam Ferraro on 04-01-2023 Hematocrit (Bld) [Volume fraction] 45.8 % 40-54 [facility] - Chemistry and C hemistry - challengeOrdered By: Adam Ferraro on 04-01-2023 CO2 [Moles/Vol] 25.0 mmol/L 21.0-32.0 [facility] Urea nitrogen/Creatinine [Mass ratio] 13.7 mg/mg 10-20 [facility] - Hematology and Cell countsOrdered By: Adam Ferraro on 04-01-2023 Erythrocyte distribution width (RBC) [Entitic vol] 42.5 fL 35.1-43.9 [facility] Erythrocyte distribution width (RBC) [Ratio] 13.1 % 11.6-14.6 [facility] Immature granulocytes/100 WBC (Bld) 0.600 % 0.0-0.9 [facility] Comment on above: IG% - Immature Granu locytes (promyelocytes, myelocytes and metamyelocytes) > 1% indicates that a LEFT SHIFT is Present. MCH (RBC) [Entitic mass] 28.4 pg 27.0-32.0 [facility] Nucleated RBC/100 WBC (Bld) [Ratio] 0 % 0-5 [facility] MCHC Auto (RBC) [Mass/Vol]Or dered By: Adam Ferraro on 04-01-2023 MCHC (RBC) [Mass/Vol] 32.1 g/dL 32-36 [facility] No Panel InformationOrdered By: Adam Ferraro on 04-01-2023 Estimated GFR (MDRD) Amer 49 mL/min >60 [facility] Comment on above: GFR Calc Estimated GFR (MDRD) Non-Af Amer 41 mL/min >60 [facility] Comment on above: Non- GFR Calc [place] Level < 0.20 mmol/L 0.60-1.20 [facility] Platelets bldOrdered By: Benoit Ferraro on 04-01-2023 Platelets (Bld) [#/Vol] 209 10*3/uL 150-450 [facility] Serum or plasma albumin you urement (mass/volume)Ordered By: Adam Ferraro on 04-01-2023 Albumin [Mass/Vol] 3.0 g/dL 3.2-5.0 [facility] Serum or plasma calcium you urement (mass/volume)Ordered By: Adam Ferraro on 04-01-2023 Calcium [Mass/Vol] 8.9 mg/dL 8.5-10.1 [facility] Serum or plasma creatinine m easurement (mass/volume)Ordered By: Adam Ferraro on 04-01-2023 Creatinine [Mass/Vol] 1.82 mg/dL 0.70-1.30 [facility] Comment on above: The validity of the calculated GFR & GFRAA in patients over 70 years has not been determined. Clinical correlation is essential. Serum or plasma urea nitroge n measurement (mass/volume)Ordered By: Adam Ferraro on 04-01-2023 Urea nitrogen [Mass/Vol] 25 mg/dL 7-18 [facility] Absolute lymphocyte countOrd ered By: Alfredo Phipps on 03-04-2023 Lymphocytes Auto (Unsp spec) [#/Vol] 2.18 10*3/uL 0.83-4.51 [facility] Basophil percentageOrdered B y: Alfredo Phipps on 03-04-2023 Basophil percentage 3.9 mg/dL 2.5-4.9 [facility] Basophils/100 WBC (Bld) 0.9 % 0-1 [facility] Chloride [Moles/Vol] 109 mmol/L 98-107 [facility] Eosinophils/100 WBC (Bld) 3.5 % 0-5 [facility] Glucose [Mass/Vol] 179 mg/dL 74-106 [facility] Comment on above: Fasting Glucose resu lt greater than or equal to 126 mg/dL suggests DIABETES MELLITUS per A.D.A. criteria. Neutrophils (Bld) [#/Vol] 6.1 10*3/uL 2.0-7.7 [facility] Neutrophils/100 WBC (Bld) 63.2 % 47-70 [facility] Potassium [Moles/Vol] 3.9 mmol/L 3.5-5.1 [facility] Sodium [Moles/Vol] 138 mmol/L 136-145 [facility] WBC (Bld) [#/Vol] 9.6 10*3/uL 4.4-11.0 [facility] Blood erythrocytes count (nu mber/volume)Ordered By: Alfredo Phipps on 03-04-2023 RBC (Bld) [#/Vol] 4.74 10*6/uL 4.6-6.2 [facility] Blood hemoglobin measurement (mass/volume)Ordered By: Alfredo Phipps on 03-04-2023 Hemoglobin (Bld) [Mass/Vol] 13.6 g/dL 13.0-16.5 [facility] Blood lymphocytes/100 leukoc ytesOrdered By: Alfredo Phipps on 03-04-2023 Lymphocytes/100 WBC (Bld) 22.6 % 19-41 [facility] Blood monocytes/100 leukocyt esOrdered By: Alfredo Phipps on 03-04-2023 Monocytes/100 WBC (Bld) 9.4 % 0-10 [facility] Blood platelet mean volumeOr dered By: Alfredo Phipps on 03-04-2023 Platelet mean volume (Bld) [Entitic vol] 9.7 fL 6.2-12.0 [facility] Determination of erythrocyte mean corpuscular volume (MCV)Ordered By: Alfredo Phipps on 03-04-2023 MCV (RBC) [Entitic vol] 90.3 fL 80-94 [facility] [facility] Hemat[facility] Auto (Bld) [Volum e fraction]Ordered By: Alfredo Phipps on 03-04-2023 Hematocrit (Bld) [Volume fraction] 42.8 % 40-54 [facility] - Chemistry and C hemistry - challengeOrdered By: Alfredo Phipps on 03-04-2023 CO2 [Moles/Vol] 26.0 mmol/L 21.0-32.0 [facility] Urea nitrogen/Creatinine [Mass ratio] 13.9 mg/mg 10-20 [facility] - Hematology and Cell countsOrdered By: Alfredo Phipps on 03-04-2023 Erythrocyte distribution width (RBC) [Entitic vol] 42.8 fL 35.1-43.9 [facility] Erythrocyte distribution width (RBC) [Ratio] 12.9 % 11.6-14.6 [facility] Immature granulocytes/100 WBC (Bld) 0.400 % 0.0-0.9 [facility] Comment on above: IG% - Immature Granu locytes (promyelocytes, myelocytes and metamyelocytes) > 1% indicates that a LEFT SHIFT is Present. MCH (RBC) [Entitic mass] 28.7 pg 27.0-32.0 [facility] Nucleated RBC/100 WBC (Bld) [Ratio] 0 % 0-5 [facility] MCHC Auto (RBC) [Mass/Vol]Or dered By: Alfredo Phipps on 03-04-2023 MCHC (RBC) [Mass/Vol] 31.8 g/dL 32-36 [facility] No Panel InformationOrdered By: Alfredo Phipps on 03-04-2023 Estimated GFR (MDRD) Amer 55 mL/min >60 [facility] Comment on above: GFR Calc Estimated GFR (MDRD) Non-Af Amer 46 mL/min >60 [facility] Comment on above: Non- GFR Calc [place] Level 0.40 mmol/L 0.60-1.20 [facility] Platelets bldOrdered By: Jennifer Phipps on 03-04-2023 Platelets (Bld) [#/Vol] 207 10*3/uL 150-450 [facility] Serum or plasma albumin you urement (mass/volume)Ordered By: Alfredo Phipps on 03-04-2023 Albumin [Mass/Vol] 2.8 g/dL 3.2-5.0 [facility] Serum or plasma calcium you urement (mass/volume)Ordered By: Alfredo Phipps on 03-04-2023 Calcium [Mass/Vol] 9.2 mg/dL 8.5-10.1 [facility] Serum or plasma creatinine m easurement (mass/volume)Ordered By: Alfredo Phipps on 03-04-2023 Creatinine [Mass/Vol] 1.65 mg/dL 0.70-1.30 [facility] Comment on above: The validity of the calculated GFR & GFRAA in patients over 70 years has not been determined. Clinical correlation is essential. Serum or plasma urea nitroge n measurement (mass/volume)Ordered By: Alfredo Phipps on 03-04-2023 Urea nitrogen [Mass/Vol] 23 mg/dL 7-18 [facility] Serum or plasma uric acid me asurement (mass/volume)Ordered By: Alfredo Phipps on 02-25-2023 Urate [Mass/Vol] 5.6 mg/dL 3.5-7.2 [facility] Comment on above: The drugs N-Acetylcy steine and Metamizole may falsely depress this assay. Absolute lymphocyte countOrd ered By: Alfredo Phipps on 02-04-2023 Lymphocytes Auto (Unsp spec) [#/Vol] 2.03 10*3/uL 0.83-4.51 [facility] Basophil percentageOrdered B y: Alfredo Phipps on 02-04-2023 Basophil percentage 4.3 mg/dL 2.5-4.9 [facility] Basophils/100 WBC (Bld) 1.2 % 0-1 [facility] Chloride [Moles/Vol] 108 mmol/L 98-107 [facility] Eosinophils/100 WBC (Bld) 3.6 % 0-5 [facility] Glucose [Mass/Vol] 193 mg/dL 74-106 [facility] Comment on above: Fasting Glucose resu lt greater than or equal to 126 mg/dL suggests DIABETES MELLITUS per A.D.A. criteria. Neutrophils (Bld) [#/Vol] 6.1 10*3/uL 2.0-7.7 [facility] Neutrophils/100 WBC (Bld) 63.9 % 47-70 [facility] Potassium [Moles/Vol] 4.0 mmol/L 3.5-5.1 [facility] Sodium [Moles/Vol] 139 mmol/L 136-145 [facility] WBC (Bld) [#/Vol] 9.5 10*3/uL 4.4-11.0 [facility] Blood erythrocytes count (nu mber/volume)Ordered By: Alfredo Phipps on 02-04-2023 RBC (Bld) [#/Vol] 4.81 10*6/uL 4.6-6.2 [facility] Blood hemoglobin measurement (mass/volume)Ordered By: Alfredo Phipps on 02-04-2023 Hemoglobin (Bld) [Mass/Vol] 13.9 g/dL 13.0-16.5 [facility] Blood lymphocytes/100 leukoc ytesOrdered By: Alfredo Phipps on 02-04-2023 Lymphocytes/100 WBC (Bld) 21.4 % 19-41 [facility] Blood monocytes/100 leukocyt esOrdered By: Alfredo Phipps on 02-04-2023 Monocytes/100 WBC (Bld) 9.2 % 0-10 [facility] Blood platelet mean volumeOr dered By: Alfredo Phipps on 02-04-2023 Platelet mean volume (Bld) [Entitic vol] 9.4 fL 6.2-12.0 [facility] Determination of erythrocyte mean corpuscular volume (MCV)Ordered By: Alfredo Phipps on 02-04-2023 MCV (RBC) [Entitic vol] 94.2 fL 80-94 [facility] Hematocrit Auto (Bld) [Volum e fraction]Ordered By: Alfredo Phipps on 02-04-2023 Hematocrit (Bld) [Volume fraction] 45.3 % 40-54 [facility] - Chemistry and C hemistry - challengeOrdered By: Alfredo Phipps on 02-04-2023 CO2 [Moles/Vol] 24.0 mmol/L 21.0-32.0 [facility] Urea nitrogen/Creatinine [Mass ratio] 14.6 mg/mg 10-20 [facility] - Hematology and Cell countsOrdered By: Alfredo Phipps on 02-04-2023 Erythrocyte distribution width (RBC) [Entitic vol] 45.1 fL 35.1-43.9 [facility] Erythrocyte distribution width (RBC) [Ratio] 13.1 % 11.6-14.6 [facility] Immature granulocytes/100 WBC (Bld) 0.700 % 0.0-0.9 [facility] Comment on above: IG% - Immature Granu locytes (promyelocytes, myelocytes and metamyelocytes) > 1% indicates that a LEFT SHIFT is Present. MCH (RBC) [Entitic mass] 28.9 pg 27.0-32.0 [facility] Nucleated RBC/100 WBC (Bld) [Ratio] 0 % 0-5 [facility] MCHC Auto (RBC) [Mass/Vol]Or dered By: Alfredo Phipps on 02-04-2023 MCHC (RBC) [Mass/Vol] 30.7 g/dL 32-36 [facility] No Panel InformationOrdered By: Alfredo Phipps on 02-04-2023 Estimated GFR (MDRD) Amer 53 mL/min >60 [facility] Comment on above: GFR Calc Estimated GFR (MDRD) Non-Af Amer 44 mL/min >60 [facility] Comment on above: Non- GFR Calc [place] Level 0.50 mmol/L 0.60-1.20 [facility] Platelets bldOrdered By: Jennifer Phipps on 02-04-2023 Platelets (Bld) [#/Vol] 182 10*3/uL 150-450 [facility] Serum or plasma albumin you urement (mass/volume)Ordered By: Alfredo Phipps on 02-04-2023 Albumin [Mass/Vol] 2.9 g/dL 3.2-5.0 [facility] Serum or plasma calcium you urement (mass/volume)Ordered By: Alfredo Phipps on 02-04-2023 Calcium [Mass/Vol] 8.9 mg/dL 8.5-10.1 [facility] Serum or plasma creatinine m easurement (mass/volume)Ordered By: Alfredo Phipps on 02-04-2023 Creatinine [Mass/Vol] 1.71 mg/dL 0.70-1.30 [facility] Comment on above: The validity of the calculated GFR & GFRAA in patients over 70 years has not been determined. Clinical correlation is essential. Serum or plasma urea nitroge n measurement (mass/volume)Ordered By: Alfredo Phipps on 02-04-2023 Urea nitrogen [Mass/Vol] 25 mg/dL 7-18 [facility] Serum or plasma uric acid me asurement (mass/volume)Ordered By: Adam Ferraro on 01-25-2023 Urate [Mass/Vol] 5.8 mg/dL 3.5-7.2 [facility] Comment on above: The drugs N-Acetylcy steine and Metamizole may falsely depress this assay. Basophil percentageOrdered B y: Alfredo Phipps on 01-19-2023 Cholesterol [Mass/Vol] 160 mg/dL <200 [facility] Comment on above: <200 mg/dL Desirable 200-240 mg/dL Borderline >240 mg/dL High Risk Triglyceride [Mass/Vol] 322 mg/dL <199 [facility] Comment on above: The drugs N-Acetylcy steine and Metamizole may falsely depress this assay.Serum Triglycerides Reference Interval Normal <150 mg/dL Borderline high 150 - 199 mg/dL High 200 - 499 mg/dL Very High > or = 500 mg/dL Serum or plasma cholesterol in HDL measurement (mass/volume)Ordered By: Alfredo Phipps on 01-19-2023 Cholesterol in HDL [Mass/Vol] 38 mg/dL >40 [facility] Comment on above: The drugs N-Acetylcy steine and Metamizole may falsely depress this assay. Reference Range HDL <40 mg/dL Low HDL Cholesterol HDL >or= 60 mg/dL High HDL Cholesterol Serum or plasma cholesterol in VLDL measurement (mass/volume)Ordered By: Alfredo Phipps on 01-19-2023 Cholesterol in VLDL [Mass/Vol] 64 mg/dL 5-40 [facility] Serum or plasma low density lipoprotein (LDL) cholesterol measurement (mass/volume)Ordered By: Alfredo Phipps on 01-19-2023 Cholesterol in LDL [Mass/Vol] 58 mg/dL 0-130 [facility] Absolute lymphocyte countOrd ered By: Alfredo Phipps on 01-07-2023 Lymphocytes Auto (Unsp spec) [#/Vol] 2.02 10*3/uL 0.83-4.51 [facility] Basophil percentageOrdered B y: Alfredo Phipps on 01-07-2023 Basophil percentage 3.6 mg/dL 2.5-4.9 [facility] Basophils/100 WBC (Bld) 1.0 % 0-1 [facility] Chloride [Moles/Vol] 109 mmol/L 98-107 [facility] Eosinophils/100 WBC (Bld) 2.8 % 0-5 [facility] Glucose [Mass/Vol] 236 mg/dL 74-106 [facility] Comment on above: Glucose result great er than or equal to 200 mg/dLsuggests DIABETES MELLITUS per A.D.A. criteria. Neutrophils (Bld) [#/Vol] 5.8 10*3/uL 2.0-7.7 [facility] Neutrophils/100 WBC (Bld) 62.2 % 47-70 [facility] Potassium [Moles/Vol] 4.1 mmol/L 3.5-5.1 [facility] Sodium [Moles/Vol] 141 mmol/L 136-145 [facility] WBC (Bld) [#/Vol] 9.3 10*3/uL 4.4-11.0 [facility] Blood erythrocytes count (nu mber/volume)Ordered By: Alfredo Phipps on 01-07-2023 RBC (Bld) [#/Vol] 4.67 10*6/uL 4.6-6.2 [facility] Blood hemoglobin measurement (mass/volume)Ordered By: Alfredo Phipps on 01-07-2023 Hemoglobin (Bld) [Mass/Vol] 13.5 g/dL 13.0-16.5 [facility] Blood lymphocytes/100 leukoc ytesOrdered By: Alfredo Phipps on 01-07-2023 Lymphocytes/100 WBC (Bld) 21.8 % 19-41 [facility] Blood monocytes/100 leukocyt esOrdered By: Alfredo Phipps on 01-07-2023 Monocytes/100 WBC (Bld) 11.6 % 0-10 [facility] Blood platelet mean volumeOr dered By: Alfredo Phipps on 01-07-2023 Platelet mean volume (Bld) [Entitic vol] 9.8 fL 6.2-12.0 [facility] Determination of erythrocyte mean corpuscular volume (MCV)Ordered By: Alfredo Phipps on 01-07-2023 MCV (RBC) [Entitic vol] 89.7 fL 80-94 [facility] Hematocrit Auto (Bld) [Volum e fraction]Ordered By: Alfredo Phipps on 01-07-2023 Hematocrit (Bld) [Volume fraction] 41.9 % 40-54 [facility] - Chemistry and C hemistry - challengeOrdered By: Alfredo Phipps on 01-07-2023 CO2 [Moles/Vol] 26.0 mmol/L 21.0-32.0 [facility] Urea nitrogen/Creatinine [Mass ratio] 13.4 mg/mg 10-20 [facility] - Hematology and Cell countsOrdered By: Alfredo Phipps on 01-07-2023 Erythrocyte distribution width (RBC) [Entitic vol] 42.5 fL 35.1-43.9 [facility] Erythrocyte distribution width (RBC) [Ratio] 13.1 % 11.6-14.6 [facility] Immature granulocytes/100 WBC (Bld) 0.600 % 0.0-0.9 [facility] Comment on above: IG% - Immature Granu locytes (promyelocytes, myelocytes and metamyelocytes) > 1% indicates that a LEFT SHIFT is Present. MCH (RBC) [Entitic mass] 28.9 pg 27.0-32.0 [facility] Nucleated RBC/100 WBC (Bld) [Ratio] 0 % 0-5 [facility] MCHC Auto (RBC) [Mass/Vol]Or dered By: Alfredo Phipps on 01-07-2023 MCHC (RBC) [Mass/Vol] 32.2 g/dL 32-36 [facility] No Panel InformationOrdered By: Alfredo Phipps on 01-07-2023 Estimated GFR (MDRD) Amer 48 mL/min >60 [facility] Comment on above: GFR Calc Estimated GFR (MDRD) Non-Af Amer 40 mL/min >60 [facility] Comment on above: Non- GFR Calc [place] Level 0.30 mmol/L 0.60-1.20 [facility] Platelets bldOrdered By: Jennifer Phipps on 01-07-2023 Platelets (Bld) [#/Vol] 203 10*3/uL 150-450 [facility] Serum or plasma albumin you urement (mass/volume)Ordered By: Alfredo Phipps on 01-07-2023 Albumin [Mass/Vol] 2.9 g/dL 3.2-5.0 [facility] Serum or plasma calcium you urement (mass/volume)Ordered By: Alfredo Phipps on 01-07-2023 Calcium [Mass/Vol] 9.0 mg/dL 8.5-10.1 [facility] Serum or plasma creatinine m easurement (mass/volume)Ordered By: Aflredo Phipps on 01-07-2023 Creatinine [Mass/Vol] 1.86 mg/dL 0.70-1.30 [facility] Comment on above: The validity of the calculated GFR & GFRAA in patients over 70 years has not been determined. Clinical correlation is essential. Serum or plasma urea nitroge n measurement (mass/volume)Ordered By: Alfredo Phipps on 01-07-2023 Urea nitrogen [Mass/Vol] 25 mg/dL 7-18 [facility] Serum or plasma uric acid me asurement (mass/volume)Ordered By: Adam Ferraro on 12-28-2022 Urate [Mass/Vol] 5.9 mg/dL 3.5-7.2 [facility] Comment on above: The drugs N-Acetylcy steine and Metamizole may falsely depress this assay. Urine creatinine measurement (mass/volume)Ordered By: Adam Ferraro on 12-15-2022 Creatinine (U) [Mass/Vol] 141.00 mg/dL NO RANGE EST. [facility] Urine protein measurement (m ass/volume)Ordered By: Adam Ferraro on 12-15-2022 Protein (U) [Mass/Vol] 29.9 mg/dL 0.0-11.8 [facility] Urine protein/creatinine mas s ratioOrdered By: Adam Ferraro on 12-15-2022 Protein/Creatinine (U) [Mass ratio] 212 mg/g CRE 0-200 [facility] Absolute lymphocyte countOrd ered By: Adam Ferraro on 12-10-2022 Lymphocytes Auto (Unsp spec) [#/Vol] 1.96 10*3/uL 0.83-4.51 [facility] Basophil percentageOrdered B y: Adam Ferraro on 12-10-2022 Basophil percentage 4.0 mg/dL 2.5-4.9 [facility] Basophils/100 WBC (Bld) 1.2 % 0-1 [facility] Chloride [Moles/Vol] 106 mmol/L 98-107 [facility] Eosinophils/100 WBC (Bld) 3.6 % 0-5 [facility] Glucose [Mass/Vol] 155 mg/dL 74-106 [facility] Comment on above: Fasting Glucose resu lt greater than or equal to 126 mg/dL suggests DIABETES MELLITUS per A.D.A. criteria. Neutrophils (Bld) [#/Vol] 4.9 10*3/uL 2.0-7.7 [facility] Neutrophils/100 WBC (Bld) 60.1 % 47-70 [facility] Potassium [Moles/Vol] 4.1 mmol/L 3.5-5.1 [facility] Sodium [Moles/Vol] 140 mmol/L 136-145 [facility] WBC (Bld) [#/Vol] 8.1 10*3/uL 4.4-11.0 [facility] Blood erythrocytes count (nu mber/volume)Ordered By: Adam Ferraro on 12-10-2022 RBC (Bld) [#/Vol] 4.96 10*6/uL 4.6-6.2 [facility] Blood hemoglobin measurement (mass/volume)Ordered By: Adam Ferraro on 12-10-2022 Hemoglobin (Bld) [Mass/Vol] 14.4 g/dL 13.0-16.5 [facility] Blood lymphocytes/100 leukoc ytesOrdered By: Adam Ferraro on 12-10-2022 Lymphocytes/100 WBC (Bld) 24.1 % 19-41 [facility] Blood monocytes/100 leukocyt esOrdered By: Adam Ferraro on 12-10-2022 Monocytes/100 WBC (Bld) 10.6 % 0-10 [facility] Blood platelet mean volumeOr dered By: Adam Ferraro on 12-10-2022 Platelet mean volume (Bld) [Entitic vol] 9.8 fL 6.2-12.0 [facility] Determination of erythrocyte mean corpuscular volume (MCV)Ordered By: Adam Ferraro on 12-10-2022 MCV (RBC) [Entitic vol] 89.5 fL 80-94 [facility] Hematocrit Auto (Bld) [Volum e fraction]Ordered By: Adam Ferraro on 01-27-2023 Hematocrit (Bld) [Volume fraction] 44.4 % 40-54 [facility] - Chemistry and C hemistry - challengeOrdered By: Adam Ferraro on 12-10-2022 CO2 [Moles/Vol] 26.0 mmol/L 21.0-32.0 [facility] Urea nitrogen/Creatinine [Mass ratio] 10.1 mg/mg 10-20 [facility] - Hematology and Cell countsOrdered By: Adam Ferraro on 12-10-2022 Erythrocyte distribution width (RBC) [Entitic vol] 42.6 fL 35.1-43.9 [facility] Erythrocyte distribution width (RBC) [Ratio] 13.0 % 11.6-14.6 [facility] Immature granulocytes/100 WBC (Bld) 0.400 % 0.0-0.9 [facility] Comment on above: IG% - Immature Granu locytes (promyelocytes, myelocytes and metamyelocytes) > 1% indicates that a LEFT SHIFT is Present. MCH (RBC) [Entitic mass] 29.0 pg 27.0-32.0 [facility] Nucleated RBC/100 WBC (Bld) [Ratio] 0 % 0-5 [facility] MCHC Auto (RBC) [Mass/Vol]Or dered By: Adam Ferraro on 12-10-2022 MCHC (RBC) [Mass/Vol] 32.4 g/dL 32-36 [facility] No Panel InformationOrdered By: Adam Ferraro on 12-10-2022 Estimated GFR (MDRD) Amer 50 mL/min >60 [facility] Comment on above: GFR Calc Estimated GFR (MDRD) Non-Af Amer 41 mL/min >60 [facility] Comment on above: Non- GFR Calc [place] Level 0.50 mmol/L 0.60-1.20 [facility] Platelets bldOrdered By: Benoit Ferraro on 12-10-2022 Platelets (Bld) [#/Vol] 213 10*3/uL 150-450 [facility] Serum or plasma albumin you urement (mass/volume)Ordered By: Adam Ferraro on 12-10-2022 Albumin [Mass/Vol] 2.8 g/dL 3.2-5.0 [facility] Serum or plasma calcium you urement (mass/volume)Ordered By: Adam Ferraro on 12-10-2022 Calcium [Mass/Vol] 8.8 mg/dL 8.5-10.1 [facility] Serum or plasma creatinine m easurement (mass/volume)Ordered By: Adam Ferraro on 12-10-2022 Creatinine [Mass/Vol] 1.79 mg/dL 0.70-1.30 [facility] Comment on above: The validity of the calculated GFR & GFRAA in patients over 70 years has not been determined. Clinical correlation is essential. Serum or plasma urea nitroge n measurement (mass/volume)Ordered By: Adam Ferraro on 12-10-2022 Urea nitrogen [Mass/Vol] 18 mg/dL 7-18 [facility] Urine creatinine measurement (mass/volume)Ordered By: Adam Ferraro on 11-17-2022 Creatinine (U) [Mass/Vol] 74.70 mg/dL NO RANGE EST. [facility] Urine protein measurement (m ass/volume)Ordered By: Adam Ferraro on 11-17-2022 Protein (U) [Mass/Vol] 16.5 mg/dL 0.0-11.8 [facility] Urine protein/creatinine mas s ratioOrdered By: Adam Ferraro on 11-17-2022 Protein/Creatinine (U) [Mass ratio] 221 mg/g CRE 0-200 [facility] Absolute lymphocyte countOrd ered By: Alfredo Phipps on 11-12-2022 Lymphocytes Auto (Unsp spec) [#/Vol] 2.11 10*3/uL 0.83-4.51 [facility] Basophil percentageOrdered B y: Alfredo Phipps on 11-12-2022 Basophil percentage 3.3 mg/dL 2.5-4.9 [facility] Basophils/100 WBC (Bld) 0.7 % 0-1 [facility] Chloride [Moles/Vol] 106 mmol/L 98-107 [facility] Eosinophils/100 WBC (Bld) 2.4 % 0-5 [facility] Glucose [Mass/Vol] 169 mg/dL 74-106 [facility] Comment on above: Fasting Glucose resu lt greater than or equal to 126 mg/dL suggests DIABETES MELLITUS per A.D.A. criteria. Neutrophils (Bld) [#/Vol] 6.1 10*3/uL 2.0-7.7 [facility] Neutrophils/100 WBC (Bld) 63.5 % 47-70 [facility] Potassium [Moles/Vol] 3.5 mmol/L 3.5-5.1 [facility] Sodium [Moles/Vol] 138 mmol/L 136-145 [facility] WBC (Bld) [#/Vol] 9.6 10*3/uL 4.4-11.0 [facility] Blood erythrocytes count (nu mber/volume)Ordered By: Alfredo Phipps on 11-12-2022 RBC (Bld) [#/Vol] 4.67 10*6/uL 4.6-6.2 [facility] Blood hemoglobin measurement (mass/volume)Ordered By: Alfredo Phipps on 11-12-2022 Hemoglobin (Bld) [Mass/Vol] 13.9 g/dL 13.0-16.5 [facility] Blood lymphocytes/100 leukoc ytesOrdered By: Alfredo Phipps on 11-12-2022 Lymphocytes/100 WBC (Bld) 21.9 % 19-41 [facility] Blood monocytes/100 leukocyt esOrdered By: Alfredo Phipps on 11-12-2022 Monocytes/100 WBC (Bld) 10.8 % 0-10 [facility] Blood platelet mean volumeOr dered By: Alfredo Phipps on 11-12-2022 Platelet mean volume (Bld) [Entitic vol] 9.8 fL 6.2-12.0 [facility] Determination of erythrocyte mean corpuscular volume (MCV)Ordered By: Alfredo Phipps on 11-12-2022 MCV (RBC) [Entitic vol] 89.1 fL 80-94 [facility] Hematocrit Auto (Bld) [Volum e fraction]Ordered By: Alfredo Phipps on 11-12-2022 Hematocrit (Bld) [Volume fraction] 41.6 % 40-54 [facility] - Chemistry and C hemistry - challengeOrdered By: Alfredo Phipps on 11-12-2022 CO2 [Moles/Vol] 25.0 mmol/L 21.0-32.0 [facility] Urea nitrogen/Creatinine [Mass ratio] 11.4 mg/mg 10-20 [facility] - Hematology and Cell countsOrdered By: Alfredo Phipps on 11-12-2022 Erythrocyte distribution width (RBC) [Entitic vol] 43.2 fL 35.1-43.9 [facility] Erythrocyte distribution width (RBC) [Ratio] 13.2 % 11.6-14.6 [facility] Immature granulocytes/100 WBC (Bld) 0.700 % 0.0-0.9 [facility] Comment on above: IG% - Immature Granu locytes (promyelocytes, myelocytes and metamyelocytes) > 1% indicates that a LEFT SHIFT is Present. MCH (RBC) [Entitic mass] 29.8 pg 27.0-32.0 [facility] Nucleated RBC/100 WBC (Bld) [Ratio] 0 % 0-5 [facility] MCHC Auto (RBC) [Mass/Vol]Or dered By: Alfredo Phipps on 11-12-2022 MCHC (RBC) [Mass/Vol] 33.4 g/dL 32-36 [facility] No Panel InformationOrdered By: Alfredo Phipps on 11-12-2022 Estimated GFR (MDRD) Amer 48 mL/min >60 [facility] Comment on above: GFR Calc Estimated GFR (MDRD) Non-Af Amer 40 mL/min >60 [facility] Comment on above: Non- GFR Calc [place] Level 0.40 mmol/L 0.60-1.20 [facility] Platelets bldOrdered By: Jennifer Phipps on 11-12-2022 Platelets (Bld) [#/Vol] 200 10*3/uL 150-450 [facility] Serum or plasma albumin you urement (mass/volume)Ordered By: Alfredo Phipps on 11-12-2022 Albumin [Mass/Vol] 2.9 g/dL 3.2-5.0 [facility] Serum or plasma calcium you urement (mass/volume)Ordered By: Alfredo Phipps on 11-12-2022 Calcium [Mass/Vol] 8.7 mg/dL 8.5-10.1 [facility] Serum or plasma creatinine m easurement (mass/volume)Ordered By: Alfredo Phipps on 11-12-2022 Creatinine [Mass/Vol] 1.85 mg/dL 0.70-1.30 [facility] Comment on above: The validity of the calculated GFR & GFRAA in patients over 70 years has not been determined. Clinical correlation is essential. Serum or plasma urea nitroge n measurement (mass/volume)Ordered By: Alfredo Phipps on 11-12-2022 Urea nitrogen [Mass/Vol] 21 mg/dL 7-18 [facility] Serum or plasma uric acid me asurement (mass/volume)Ordered By: Alfredo Phipps on 10-27-2022 Urate [Mass/Vol] 6.4 mg/dL 3.5-7.2 [facility] Comment on above: The drugs N-Acetylcy steine and Metamizole may falsely depress this assay. Absolute lymphocyte countOrd ered By: Alfredo Phipps on 10-15-2022 Lymphocytes Auto (Unsp spec) [#/Vol] 2.30 10*3/uL 0.83-4.51 [facility] Basophil percentageOrdered B y: Alfredo Phipps on 10-15-2022 Basophil percentage 4.2 mg/dL 2.5-4.9 [facility] Basophils/100 WBC (Bld) 1.0 % 0-1 [facility] Chloride [Moles/Vol] 108 mmol/L 98-107 [facility] Eosinophils/100 WBC (Bld) 3.2 % 0-5 [facility] Glucose [Mass/Vol] 168 mg/dL 74-106 [facility] Comment on above: Fasting Glucose resu lt greater than or equal to 126 mg/dL suggests DIABETES MELLITUS per A.D.A. criteria. Neutrophils (Bld) [#/Vol] 4.8 10*3/uL 2.0-7.7 [facility] Neutrophils/100 WBC (Bld) 58.3 % 47-70 [facility] [facility] Potassium [Moles/Vol] 4.1 mmol/L 3.5-5.1 [facility] Comment on above: Slight Hemolysis, Re sult may be falsely increased. Sodium [Moles/Vol] 140 mmol/L 136-145 [facility] WBC (Bld) [#/Vol] 8.3 10*3/uL 4.4-11.0 [facility] Blood erythrocytes count (nu mber/volume)Ordered By: Alfredo Phipps on 10-15-2022 RBC (Bld) [#/Vol] 4.81 10*6/uL 4.6-6.2 [facility] Blood hemoglobin measurement (mass/volume)Ordered By: Alfredo Phipps on 10-15-2022 Hemoglobin (Bld) [Mass/Vol] 13.9 g/dL 13.0-16.5 [facility] Blood lymphocytes/100 leukoc ytesOrdered By: Alfredo Phipps on 10-15-2022 Lymphocytes/100 WBC (Bld) 27.6 % 19-41 [facility] Blood monocytes/100 leukocyt esOrdered By: Alfredo Phipps on 10-15-2022 Monocytes/100 WBC (Bld) 9.1 % 0-10 [facility] Blood platelet mean volumeOr dered By: Alfredo Phipps on 10-15-2022 Platelet mean volume (Bld) [Entitic vol] 10.1 fL 6.2-12.0 [facility] Determination of erythrocyte mean corpuscular volume (MCV)Ordered By: Alfredo Phipps on 10-15-2022 MCV (RBC) [Entitic vol] 89.4 fL 80-94 [facility] Hematocrit Auto (Bld) [Volum e fraction]Ordered By: Alfredo Phipps on 10-15-2022 Hematocrit (Bld) [Volume fraction] 43.0 % 40-54 [facility] Laboratory - Chemistry and C hemistry - challengeOrdered By: Alfredo Phipps on 10-15-2022 CO2 [Moles/Vol] 28.0 mmol/L 21.0-32.0 [facility] Urea nitrogen/Creatinine [Mass ratio] 11.3 mg/mg 10-20 [facility] Laboratory - Hematology and Cell countsOrdered By: Alfredo Phipps on 10-15-2022 Erythrocyte distribution width (RBC) [Entitic vol] 42.9 fL 35.1-43.9 [facility] Erythrocyte distribution width (RBC) [Ratio] 13.2 % 11.6-14.6 [facility] Immature granulocytes/100 WBC (Bld) 0.800 % 0.0-0.9 [facility] Comment on above: IG% - Immature Granu locytes (promyelocytes, myelocytes and metamyelocytes) > 1% indicates that a LEFT SHIFT is Present. MCH (RBC) [Entitic mass] 28.9 pg 27.0-32.0 [facility] Nucleated RBC/100 WBC (Bld) [Ratio] 0 % 0-5 [facility] MCHC Auto (RBC) [Mass/Vol]Or dered By: Alfredo Phipps on 10-15-2022 MCHC (RBC) [Mass/Vol] 32.3 g/dL 32-36 [facility] No Panel InformationOrdered By: Alfredo Phipps on 10-15-2022 Estimated GFR (MDRD) Amer 46 mL/min >60 [facility] Comment on above: GFR Calc Estimated GFR (MDRD) Non-Af Amer 38 mL/min >60 [facility] Comment on above: Non- GFR Calc [place] Level 0.50 mmol/L 0.60-1.20 [facility] Platelets bldOrdered By: Jennifer Phipps on 10-15-2022 Platelets (Bld) [#/Vol] 200 10*3/uL 150-450 [facility] Serum or plasma albumin you urement (mass/volume)Ordered By: Alfredo Phipps on 10-15-2022 Albumin [Mass/Vol] 2.9 g/dL 3.2-5.0 [facility] Serum or plasma calcium you urement (mass/volume)Ordered By: Alfredo Phipps on 10-15-2022 Calcium [Mass/Vol] 9.1 mg/dL 8.5-10.1 [facility] Serum or plasma creatinine m easurement (mass/volume)Ordered By: Alfredo Phipps on 10-15-2022 Creatinine [Mass/Vol] 1.94 mg/dL 0.70-1.30 [facility] Comment on above: The validity of the calculated GFR & GFRAA in patients over 70 years has not been determined. Clinical correlation is essential. Serum or plasma urea nitroge n measurement (mass/volume)Ordered By: Alfredo Phipps on 10-15-2022 Urea nitrogen [Mass/Vol] 22 mg/dL 7-18 [facility] Serum or plasma uric acid me asurement (mass/volume)Ordered By: Alfredo Phipps on 09-27-2022 Urate [Mass/Vol] 7.0 mg/dL 3.5-7.2 [facility] Comment on above: The drugs N-Acetylcy steine and Metamizole may falsely depress this assay. Absolute lymphocyte countOrd ered By: Adam Ferraro on 09-17-2022 Lymphocytes Auto (Unsp spec) [#/Vol] 2.69 10*3/uL 0.83-4.51 [facility] Basophil percentageOrdered B y: Adam Ferraro on 09-17-2022 Basophil percentage 3.8 mg/dL 2.5-4.9 [facility] Basophils/100 WBC (Bld) 0.9 % 0-1 [facility] Chloride [Moles/Vol] 105 mmol/L 98-107 [facility] Eosinophils/100 WBC (Bld) 3.2 % 0-5 [facility] Glucose [Mass/Vol] 141 mg/dL 74-106 [facility] Comment on above: Fasting Glucose resu lt greater than or equal to 126 mg/dL suggests DIABETES MELLITUS per A.D.A. criteria. Neutrophils (Bld) [#/Vol] 5.1 10*3/uL 2.0-7.7 [facility] Neutrophils/100 WBC (Bld) 56.1 % 47-70 [facility] Potassium [Moles/Vol] 3.8 mmol/L 3.5-5.1 [facility] Sodium [Moles/Vol] 139 mmol/L 136-145 [facility] WBC (Bld) [#/Vol] 9.0 10*3/uL 4.4-11.0 [facility] Blood erythrocytes count (nu mber/volume)Ordered By: Adam Ferraro on 09-17-2022 RBC (Bld) [#/Vol] 4.99 10*6/uL 4.6-6.2 [facility] Blood hemoglobin measurement (mass/volume)Ordered By: Adam Ferraro on 09-17-2022 Hemoglobin (Bld) [Mass/Vol] 14.8 g/dL 13.0-16.5 [facility] Blood lymphocytes/100 leukoc ytesOrdered By: Adam Ferraro on 11-04-2022 Lymphocytes/100 WBC (Bld) 29.8 % 19-41 [facility] Blood monocytes/100 leukocyt esOrdered By: Adam Ferraro on 09-17-2022 Monocytes/100 WBC (Bld) 9.4 % 0-10 [facility] Blood platelet mean volumeOr dered By: Adam Ferraro on 09-17-2022 Platelet mean volume (Bld) [Entitic vol] 10.2 fL 6.2-12.0 [facility] Determination of erythrocyte mean corpuscular volume (MCV)Ordered By: Adam Ferraro on 09-17-2022 MCV (RBC) [Entitic vol] 88.6 fL 80-94 [facility] Hematocrit Auto (Bld) [Volum e fraction]Ordered By: Adam Ferraro on 09-17-2022 Hematocrit (Bld) [Volume fraction] 44.2 % 40-54 [facility] Laboratory - Chemistry and C hemistry - challengeOrdered By: Adam Ferraro on 09-17-2022 CO2 [Moles/Vol] 26.0 mmol/L 21.0-32.0 [facility] Urea nitrogen/Creatinine [Mass ratio] 11.4 mg/mg 10-20 [facility] Laboratory - Hematology and Cell countsOrdered By: Adam Ferraro on 09-17-2022 Erythrocyte distribution width (RBC) [Entitic vol] 42.8 fL 35.1-43.9 [facility] Erythrocyte distribution width (RBC) [Ratio] 13.2 % 11.6-14.6 [facility] Immature granulocytes/100 WBC (Bld) 0.600 % 0.0-0.9 [facility] Comment on above: IG% - Immature Granu locytes (promyelocytes, myelocytes and metamyelocytes) > 1% indicates that a LEFT SHIFT is Present. MCH (RBC) [Entitic mass] 29.7 pg 27.0-32.0 [facility] Nucleated RBC/100 WBC (Bld) [Ratio] 0 % 0-5 [facility] MCHC Auto (RBC) [Mass/Vol]Or dered By: Adam Ferraro on 09-17-2022 MCHC (RBC) [Mass/Vol] 33.5 g/dL 32-36 [facility] No Panel InformationOrdered By: Adam Ferraro on 09-17-2022 [place] Level 0.50 mmol/L 0.60-1.20 [facility] Estimated GFR (MDRD) Amer 51 mL/min >60 [facility] Comment on above: GFR Calc Estimated GFR (MDRD) Non-Af Amer 42 mL/min >60 [facility] Comment on above: Non- GFR Calc Platelets bldOrdered By: Benoit Ferraro on 09-17-2022 Platelets (Bld) [#/Vol] 178 10*3/uL 150-450 [facility] Serum or plasma albumin you urement (mass/volume)Ordered By: Adam Ferraro on 09-17-2022 Albumin [Mass/Vol] 3.0 g/dL 3.2-5.0 [facility] Serum or plasma calcium you urement (mass/volume)Ordered By: Adam Ferraro on 09-17-2022 Calcium [Mass/Vol] 9.0 mg/dL 8.5-10.1 [facility] Serum or plasma creatinine m easurement (mass/volume)Ordered By: Adam Ferraro on 09-17-2022 Creatinine [Mass/Vol] 1.76 mg/dL 0.70-1.30 [facility] Comment on above: The validity of the calculated GFR & GFRAA in patients over 70 years has not been determined. Clinical correlation is essential. Serum or plasma urea nitroge n measurement (mass/volume)Ordered By: Adam Ferraro on 09-17-2022 Urea nitrogen [Mass/Vol] 20 mg/dL 7-18 [facility] Urine creatinine measurement (mass/volume)Ordered By: Adam Ferraro on 09-17-2022 Creatinine (U) [Mass/Vol] 128.00 mg/dL NO RANGE EST. [facility] Urine protein measurement (m ass/volume)Ordered By: Adam Ferraro on 09-17-2022 Protein (U) [Mass/Vol] 20.9 mg/dL 0.0-11.8 [facility] Urine protein/creatinine mas s ratioOrdered By: Adam Ferraro on 09-17-2022 Protein/Creatinine (U) [Mass ratio] 163 mg/g CRE 0-200 [facility] Serum or plasma uric acid me asurement (mass/volume)Ordered By: Adam Ferraro on 08-27-2022 Urate [Mass/Vol] 6.4 mg/dL 3.5-7.2 [facility] Comment on above: The drugs N-Acetylcy steine and Metamizole may falsely depress this assay. No Panel InformationOrdered By: Adam Ferraro on 08-23-2022 [place] Level 0.40 mmol/L 0.60-1.20 [facility] Culture, urineOrdered By: Chan Fiore on 08-15-2022 Bacteria identified Cx Nom (U) Streptococcus mitis [facility] Absolute lymphocyte countOrd ered By: Alfredo Phipps on 08-12-2022 Lymphocytes Auto (Unsp spec) [#/Vol] 2.09 10*3/uL 0.83-4.51 [facility] Basophil percentageOrdered B y: Alfredo Phipps on 08-12-2022 Basophil percentage 3.6 mg/dL 2.5-4.9 [facility] Basophils/100 WBC (Bld) 0.9 % 0-1 [facility] Chloride [Moles/Vol] 107 mmol/L 98-107 [facility] Eosinophils/100 WBC (Bld) 2.8 % 0-5 [facility] Glucose [Mass/Vol] 151 mg/dL 74-106 [facility] Comment on above: Fasting Glucose resu lt greater than or equal to 126 mg/dL suggests DIABETES MELLITUS per A.D.A. criteria. Neutrophils (Bld) [#/Vol] 5.5 10*3/uL 2.0-7.7 [facility] Neutrophils/100 WBC (Bld) 63.4 % 47-70 [facility] Potassium [Moles/Vol] 4.0 mmol/L 3.5-5.1 [facility] Sodium [Moles/Vol] 140 mmol/L 136-145 [facility] WBC (Bld) [#/Vol] 8.7 10*3/uL 4.4-11.0 [facility] Basophil percentage 10-25 SEEN /hpf 0-5 [facility] Bilirubin Test strip Ql (U)O rdered By: Alfredo Phipps on 08-12-2022 Bilirubin Ql (U) Negative Negative [facility] Blood erythrocytes count (nu mber/volume)Ordered By: Alfredo Phipps on 08-12-2022 RBC (Bld) [#/Vol] 4.92 10*6/uL 4.6-6.2 [facility] Blood hemoglobin measurement (mass/volume)Ordered By: Alfredo Phipps on 08-12-2022 Hemoglobin (Bld) [Mass/Vol] 14.5 g/dL 13.0-16.5 [facility] Blood lymphocytes/100 leukoc ytesOrdered By: Alfredo Phipps on 08-12-2022 Lymphocytes/100 WBC (Bld) 24.1 % 19-41 [facility] Blood monocytes/100 leukocyt esOrdered By: Alfredo Phipps on 08-12-2022 Monocytes/100 WBC (Bld) 8.3 % 0-10 [facility] Blood platelet mean volumeOr dered By: Alfredo Phipps on 08-12-2022 Platelet mean volume (Bld) [Entitic vol] 9.8 fL 6.2-12.0 [facility] Determination of erythrocyte mean corpuscular volume (MCV)Ordered By: Alfredo Phipps on 08-12-2022 MCV (RBC) [Entitic vol] 91.1 fL 80-94 [facility] Hematocrit Auto (Bld) [Volum e fraction]Ordered By: Alfredo Phipps on 08-12-2022 Hematocrit (Bld) [Volume fraction] 44.8 % 40-54 [facility] Ketones Test strip Ql (U)Ord ered By: Alfredo Phipps on 08-12-2022 Ketones Ql (U) Negative Negative [facility] Laboratory - Chemistry and C hemistry - challengeOrdered By: Alfredo Phipps on 08-12-2022 CO2 [Moles/Vol] 25.0 mmol/L 21.0-32.0 [facility] Urea nitrogen/Creatinine [Mass ratio] 14.9 mg/mg 10-20 [facility] Laboratory - Hematology and Cell countsOrdered By: Alfredo Phipps on 08-12-2022 Erythrocyte distribution width (RBC) [Entitic vol] 43.3 fL 35.1-43.9 [facility] Erythrocyte distribution width (RBC) [Ratio] 12.9 % 11.6-14.6 [facility] Immature granulocytes/100 WBC (Bld) 0.500 % 0.0-0.9 [facility] Comment on above: IG% - Immature Granu locytes (promyelocytes, myelocytes and metamyelocytes) > 1% indicates that a LEFT SHIFT is Present. MCH (RBC) [Entitic mass] 29.5 pg 27.0-32.0 [facility] Nucleated RBC/100 WBC (Bld) [Ratio] 0 % 0-5 [facility] MCHC Auto (RBC) [Mass/Vol]Or dered By: Alfredo Phipps on 08-12-2022 MCHC (RBC) [Mass/Vol] 32.4 g/dL 32-36 [facility] Mucus LM Ql (Urine sed)Order ed By: Alfredo Phipps on 08-12-2022 Mucus Ql (Urine sed) Not Reportable [facility] Nitrite Test strip Ql (U)Ord ered By: Alfredo Phipps on 08-12-2022 Nitrite Ql (U) Negative Negative [facility] No Panel InformationOrdered By: Alfredo Phipps on 08-12-2022 Estimated GFR (MDRD) Amer 54 mL/min >60 [facility] Comment on above: GFR Calc Estimated GFR (MDRD) Non-Af Amer 45 mL/min >60 [facility] Comment on above: Non- GFR Calc Platelets bldOrdered By: Jennifer Phipps on 08-12-2022 Platelets (Bld) [#/Vol] 238 10*3/uL 150-450 [facility] Protein Test strip Ql (U)Ord ered By: Alfredo Phipps on 08-12-2022 Protein Ql (U) 15 mg/dl Negative [facility] Serum or plasma albumin you urement (mass/volume)Ordered By: Alfredo Phipps on 08-12-2022 Albumin [Mass/Vol] 2.9 g/dL 3.2-5.0 [facility] Serum or plasma calcium you urement (mass/volume)Ordered By: Alfredo Phipps on 08-12-2022 Calcium [Mass/Vol] 9.2 mg/dL 8.5-10.1 [facility] Serum or plasma creatinine m easurement (mass/volume)Ordered By: Alfredo Phipps on 08-12-2022 Creatinine [Mass/Vol] 1.68 mg/dL 0.70-1.30 [facility] Comment on above: The validity of the calculated GFR & GFRAA in patients over 70 years has not been determined. Clinical correlation is essential. Serum or plasma urea nitroge n measurement (mass/volume)Ordered By: Alfredo Phipps on 08-12-2022 Urea nitrogen [Mass/Vol] 25 mg/dL 7-18 [facility] Squamous epithelial cells de tection in urine sediment by light microscopyOrdered By: Alfredo Phipps on 08-12-2022 Epithelial cells.squamous LM Ql (Urine sed) 0-5 SEEN /hpf 0-5 [facility] Urine blood detectionOrdered By: Alfredo Phipps on 08-12-2022 RBC Ql (U) Negative Negative [facility] RBC Ql (U) 0 SEEN /hpf 0-5 [facility] Urine clarityOrdered By: Jennifer Phipps on 08-12-2022 Clarity (U) Clear Clear [facility] Urine color determinationOrd ered By: Alfredo Phipps on 08-12-2022 Color (U) Yellow Yellow [facility] Urine creatinine measurement (mass/volume)Ordered By: Alfredo Phipps on 08-12-2022 Creatinine (U) [Mass/Vol] 102.00 mg/dL NO RANGE EST. [facility] Urine glucose detectionOrder ed By: Alfredo Phipps on 08-12-2022 Glucose Ql (U) Normal mg/dl Normal [facility] Urine leukocyte esterase det ection by dipstickOrdered By: Alfredo Phipps on 08-12-2022 Leukocyte esterase Test strip Ql (U) 500 /ul Negative [facility] Urine pHOrdered By: Alfredo saha on 08-12-2022 pH (U) 6.0 [pH] 5.0 - 8.0 [facility] Urine protein measurement (m ass/volume)Ordered By: Alfredo Phipps on 08-12-2022 Protein (U) [Mass/Vol] 19.9 mg/dL 0.0-11.8 [facility] Urine protein/creatinine mas s ratioOrdered By: Alfredo Phipps on 08-12-2022 Protein/Creatinine (U) [Mass ratio] 195 mg/g CRE 0-200 [facility] Urine sediment bacteria coun t by microscopy (number/high power field)Ordered By: Alfredo Phipps on 08-12-2022 Bacteria LM.HPF (Urine sed) [#/Area] RARE /hpf None Seen [facility] Urine specific gravity measu rementOrdered By: Alfredo Phipps on 08-12-2022 Specific gravity (U) [Rel density] 1.015 1.002-1.03 0 [facility] Urobilinogen Auto test strip Ql (U)Ordered By: Alfredo Phipps on 08-12-2022 Urobilinogen Ql (U) Normal mg/dl Normal [facility] No Panel Informationon 07-28 [place] Level 0.60 mmol/L 0.60-1.20 [facility] Work Phone: Serum or plasma uric acid me asurement (mass/volume)on 07-28-2022 Urate [Mass/Vol] 6.3 mg/dL 3.5-7.2 [facility] Work Phone: Comment on above: The drugs N-Acetylcy steine and Metamizole may falsely depress this assay. URINALYSIS, REFLEX MICROSCOP ICon 07-27-2022 Bilirubin Ql (U) Negative Negative [facility] Clarity (Unsp spec) Clear Clear [facility] Color (U) Colorless Yellow [facility] Glucose Test strip (U) [Mass/Vol] Negative Negative [facility] Hemoglobin Ql (U) Negative Negative [facility] Ketones Ql (U) Negative Negative [facility] Leukocyte esterase Test strip Ql (U) Negative Negative [facility] Nitrite Ql (U) Negative Negative [facility] pH (U) 6.5 [pH] 5.0 - 8.0 [facility] Protein (U) [Mass/Vol] Negative Negative [facility] Specific gravity (U) [Rel density] 1.009 1.005 - 1.030 [facility] Urobilinogen Ql (U) Negative Negative [facility] Absolute lymphocyte counton 07-15-2022 Lymphocytes Auto (Unsp spec) [#/Vol] 1.93 10*3/uL 0.83-4.51 [facility] Work Phone: Basophil percentageon 2021 Basophil percentage 3.9 mg/dL 2.5-4.9 [facility] Work Phone: Basophils/100 WBC (Bld) 1.3 % 0-1 [facility] Work Phone: Chloride [Moles/Vol] 107 mmol/L 98-107 [facility] Work Phone: Eosinophils/100 WBC (Bld) 1.7 % 0-5 [facility] Work Phone: Glucose [Mass/Vol] 126 mg/dL 74-106 [facility] Work Phone: Comment on above: Fasting Glucose resu lt greater than or equal to 126 mg/dL suggests DIABETES MELLITUS per A.D.A. criteria. Neutrophils (Bld) [#/Vol] 6.1 10*3/uL 2.0-7.7 [facility] Work Phone: Neutrophils/100 WBC (Bld) 66.5 % 47-70 [facility] Work Phone: Potassium [Moles/Vol] 4.4 mmol/L 3.5-5.1 [facility] Work Phone: Sodium [Moles/Vol] 139 mmol/L 136-145 [facility] Work Phone: WBC (Bld) [#/Vol] 9.2 10*3/uL 4.4-11.0 [facility] Work Phone: [phone] Bilirubin Test strip Ql (U)o n 07-15-2022 Bilirubin Ql (U) Negative Negative [facility] Work Phone: Blood erythrocytes count (nu mber/volume)on 07-15-2022 RBC (Bld) [#/Vol] 5.01 10*6/uL 4.6-6.2 [facility] Work Phone: Blood hemoglobin measurement (mass/volume)on 07-15-2022 Hemoglobin (Bld) [Mass/Vol] 14.8 g/dL 13.0-16.5 [facility] Work Phone: Blood lymphocytes/100 leukoc yteson 07-15-2022 Lymphocytes/100 WBC (Bld) 20.9 % 19-41 [facility] Work Phone: Blood monocytes/100 leukocyt eson 07-15-2022 Monocytes/100 WBC (Bld) 8.9 % 0-10 [facility] Work Phone: [phone] Blood platelet mean volumeon 07-15-2022 Platelet mean volume (Bld) [Entitic vol] 9.7 fL 6.2-12.0 [facility] Work Phone: [phone] Determination of erythrocyte mean corpuscular volume (MCV)on 07-15-2022 MCV (RBC) [Entitic vol] 91.8 fL 80-94 [facility] Work Phone: Hematocrit Auto (Bld) [Volum e fraction]on 07-15-2022 Hematocrit (Bld) [Volume fraction] 46.0 % 40-54 [facility] Work Phone: [phone] Ketones Test strip Ql (U)on 07-15-2022 Ketones Ql (U) Negative Negative [facility] Work Phone: [phone] Laboratory - Chemistry and C hemistry - challengeon 07-15-2022 CO2 [Moles/Vol] 25.0 mmol/L 21.0-32.0 [facility] Work Phone: [phone] Urea nitrogen/Creatinine [Mass ratio] 14.9 mg/mg 10-20 [facility] Work Phone: [phone] Laboratory - Hematology and Cell countson 07-15-2022 Erythrocyte distribution width (RBC) [Entitic vol] 44.0 fL 35.1-43.9 [facility] Work Phone: [phone] Erythrocyte distribution width (RBC) [Ratio] 13.1 % 11.6-14.6 [facility] Work Phone: [phone] Immature granulocytes/100 WBC (Bld) 0.700 % 0.0-0.9 [facility] Work Phone: [phone] Comment on above: IG% - Immature Granu locytes (promyelocytes, myelocytes and metamyelocytes) > 1% indicates that a LEFT SHIFT is Present. MCH (RBC) [Entitic mass] 29.5 pg 27.0-32.0 [facility] Work Phone: Nucleated RBC/100 WBC (Bld) [Ratio] 0 % 0-5 [facility] Work Phone: MCHC Auto (RBC) [Mass/Vol]on 07-15-2022 MCHC (RBC) [Mass/Vol] 32.2 g/dL 32-36 [facility] Work Phone: Nitrite Test strip Ql (U)on 07-15-2022 Nitrite Ql (U) Negative Negative [facility] Work Phone: No Panel Informationon 07-15 Estimated GFR (MDRD) Amer 54 mL/min >60 [facility] Work Phone: Comment on above: GFR Calc Estimated GFR (MDRD) Non-Af Amer 45 mL/min >60 [facility] Work Phone: Comment on above: Non- GFR Calc Platelets bldon 07-15-2022 Platelets (Bld) [#/Vol] 231 10*3/uL 150-450 [facility] Work Phone: Protein Test strip Ql (U)on 07-15-2022 Protein Ql (U) 30 mg/dl Negative [facility] Work Phone: Serum or plasma albumin you urement (mass/volume)on 07-15-2022 Albumin [Mass/Vol] 3.1 g/dL 3.2-5.0 [facility] Work Phone: Serum or plasma calcium you urement (mass/volume)on 07-15-2022 Calcium [Mass/Vol] 8.6 mg/dL 8.5-10.1 [facility] Work Phone: Serum or plasma creatinine m easurement (mass/volume)on 07-15-2022 Creatinine [Mass/Vol] 1.68 mg/dL 0.70-1.30 [facility] Work Phone: Comment on above: The validity of the calculated GFR & GFRAA in patients over 70 years has not been determined. Clinical correlation is essential. Serum or plasma urea nitroge n measurement (mass/volume)on 07-15-2022 Urea nitrogen [Mass/Vol] 25 mg/dL 7-18 [facility] Work Phone: Urine blood detectionon 09-0 RBC Ql (U) Negative Negative [facility] Work Phone: Urine clarityon 07-15-2022 Clarity (U) Sl. Cloudy Clear [facility] Work Phone: [phone] Urine color determinationon 07-15-2022 Color (U) Yellow Yellow [facility] Work Phone: Urine creatinine measurement (mass/volume)on 07-15-2022 Creatinine (U) [Mass/Vol] 114.00 mg/dL NO RANGE EST. [facility] Work Phone: Urine glucose detectionon Glucose Ql (U) Normal mg/dl Normal [facility] Work Phone: Urine leukocyte esterase det ection by dipstickon 07-15-2022 Leukocyte esterase Test strip Ql (U) 100 /ul Negative [facility] Work Phone: Urine pHon 07-15-2022 pH (U) 6.0 [pH] 5.0 - 8.0 [facility] Work Phone: Urine protein measurement (m ass/volume)on 07-15-2022 Protein (U) [Mass/Vol] 26.5 mg/dL 0.0-11.8 [facility] Work Phone: Urine protein/creatinine mas s ratioon 07-15-2022 Protein/Creatinine (U) [Mass ratio] 232 mg/g CRE 0-200 [facility] Work Phone: Urine specific gravity measu rementon 07-15-2022 Specific gravity (U) [Rel density] 1.015 1.002-1.03 0 [facility] Work Phone: Urobilinogen Auto test strip Ql (U)on 07-15-2022 Urobilinogen Ql (U) Normal mg/dl [facility]: Basophil percentageon 2021 Cholesterol [Mass/Vol] 149 mg/dL <200 [facility] Work Phone: Comment on above: <200 mg/dL Desirable 200-240 mg/dL Borderline >240 mg/dL High Risk Triglyceride [Mass/Vol] 379 mg/dL <199 [facility] Work Phone: Comment on above: The drugs N-Acetylcy steine and Metamizole may falsely depress this assay.Serum Triglycerides Reference Interval Normal <150 mg/dL Borderline high 150 - 199 mg/dL High 200 - 499 mg/dL Very High > or = 500 mg/dL No Panel Informationon 06-28 [place] Level 0.40 mmol/L 0.60-1.20 [facility] Work Phone: Serum or plasma cholesterol in HDL measurement (mass/volume)on 06-28-2022 Cholesterol in HDL [Mass/Vol] 34 mg/dL >40 [facility] Work Phone: Comment on above: The drugs N-Acetylcy steine and Metamizole may falsely depress this assay. Reference Range HDL <40 mg/dL Low HDL Cholesterol HDL >or= 60 mg/dL High HDL Cholesterol Serum or plasma cholesterol in VLDL measurement (mass/volume)on 06-28-2022 Cholesterol in VLDL [Mass/Vol] 76 mg/dL 5-40 [facility] Work Phone: Serum or plasma low density lipoprotein (LDL) cholesterol measurement (mass/volume)on 06-28-2022 Cholesterol in LDL [Mass/Vol] 39 mg/dL 0-130 [facility] Work Phone: Serum or plasma uric acid me asurement (mass/volume)on 06-28-2022 Urate [Mass/Vol] 5.9 mg/dL 3.5-7.2 [facility] Work Phone: Comment on above: The drugs N-Acetylcy steine and Metamizole may falsely depress this assay. Absolute lymphocyte counton 06-17-2022 Lymphocytes Auto (Unsp spec) [#/Vol] 2.02 10*3/uL 0.83-4.51 [facility] Work Phone: Basophil percentageon 2021 Basophil percentage 0-5 SEEN /hpf 0-5 [facility] Work Phone: Basophil percentage 3.8 mg/dL 2.5-4.9 [facility] Work [facility]: Basophils/100 WBC (Bld) 0.8 % 0-1 [facility] Work Phone: Chloride [Moles/Vol] 108 mmol/L 98-107 [facility] Work Phone: Eosinophils/100 WBC (Bld) 2.9 % 0-5 [facility] Work Phone: Glucose [Mass/Vol] 133 mg/dL 74-106 [facility] Work Phone: Comment on above: Fasting Glucose resu lt greater than or equal to 126 mg/dL suggests DIABETES MELLITUS per A.D.A. criteria. Neutrophils (Bld) [#/Vol] 5.3 10*3/uL 2.0-7.7 [facility] Work Phone: Neutrophils/100 WBC (Bld) 61.6 % 47-70 [facility] Work Phone: Potassium [Moles/Vol] 3.8 mmol/L 3.5-5.1 [facility] Work Phone: Sodium [Moles/Vol] 140 mmol/L 136-145 [facility] Work Phone: WBC (Bld) [#/Vol] 8.6 10*3/uL 4.4-11.0 [facility] Work Phone: Bilirubin Test strip Ql (U)o n 06-17-2022 Bilirubin Ql (U) Negative Negative [facility] Work Phone: Blood erythrocytes count (nu mber/volume)on 06-17-2022 RBC (Bld) [#/Vol] 4.46 10*6/uL 4.6-6.2 [facility] Work Phone: [phone] Blood hemoglobin measurement (mass/volume)on 06-17-2022 Hemoglobin (Bld) [Mass/Vol] 13.4 g/dL 13.0-16.5 [facility] Work Phone: Blood lymphocytes/100 leukoc yteson 06-17-2022 Lymphocytes/100 WBC (Bld) 23.5 % 19-41 [facility] Work Phone: Blood monocytes/100 leukocyt eson 06-17-2022 Monocytes/100 WBC (Bld) 10.0 % 0-10 [facility] Work Phone: Blood platelet mean volumeon 06-17-2022 Platelet mean volume (Bld) [Entitic vol] 9.6 fL 6.2-12.0 [facility] Work Phone: [phone] Determination of erythrocyte mean corpuscular volume (MCV)on 06-17-2022 MCV (RBC) [Entitic vol] 91.3 fL 80-94 [facility] Work Phone: [phone] Hematocrit Auto (Bld) [Volum e fraction]on 06-17-2022 Hematocrit (Bld) [Volume fraction] 40.7 % 40-54 [facility] Work Phone: [phone] Ketones Test strip Ql (U)on 06-17-2022 Ketones Ql (U) Negative Negative [facility] Work Phone: [phone] Laboratory - Chemistry and C hemistry - challengeon 06-17-2022 CO2 [Moles/Vol] 25.0 mmol/L 21.0-32.0 [facility] Work Phone: [phone] Urea nitrogen/Creatinine [Mass ratio] 12.6 mg/mg 10-20 [facility] Work Phone: Laboratory - Hematology and Cell countson 06-17-2022 Erythrocyte distribution width (RBC) [Entitic vol] 45.5 fL 35.1-43.9 [facility] Work Phone: Erythrocyte distribution width (RBC) [Ratio] 13.4 % 11.6-14.6 [facility] Work Phone: Immature granulocytes/100 WBC (Bld) 1.200 % 0.0-0.9 [facility] Work Phone: Comment on above: IG% - Immature Granu locytes (promyelocytes, myelocytes and metamyelocytes) > 1% indicates that a LEFT SHIFT is Present. MCH (RBC) [Entitic mass] 30.0 pg 27.0-32.0 [facility] Work Phone: Nucleated RBC/100 WBC (Bld) [Ratio] 0 % 0-5 [facility] Work Phone: MCHC Auto (RBC) [Mass/Vol]on 06-17-2022 MCHC (RBC) [Mass/Vol] 32.9 g/dL 32-36 [facility] Work Phone: Mucus LM Ql (Urine sed)on Mucus Ql (Urine sed) 0 SEEN /hpf [facility] Work Phone: Nitrite Test strip Ql (U)on 06-17-2022 Nitrite Ql (U) Negative Negative [facility] Work Phone: No Panel Informationon 06-17 Estimated GFR (MDRD) Amer 58 mL/min >60 [facility] Work Phone: Comment on above: GFR Calc Estimated GFR (MDRD) Non-Af Amer 48 mL/min >60 [facility] Work Phone: Comment on above: Non- GFR Calc Platelets bldon 06-17-2022 Platelets (Bld) [#/Vol] 178 10*3/uL 150-450 [facility] Work Phone: Protein Test strip Ql (U)on 06-17-2022 Protein Ql (U) 15 mg/dl Negative [facility] Work Phone: Serum or plasma albumin you urement (mass/volume)on 06-17-2022 Albumin [Mass/Vol] 2.8 g/dL 3.2-5.0 [facility] Work Phone: Serum or plasma calcium you urement (mass/volume)on 06-17-2022 Calcium [Mass/Vol] 8.6 mg/dL 8.5-10.1 [facility] Work Phone: Serum or plasma creatinine m easurement (mass/volume)on 06-17-2022 Creatinine [Mass/Vol] 1.59 mg/dL 0.70-1.30 [facility] Work Phone: Comment on above: The validity of the calculated GFR & GFRAA in patients over 70 years has not been determined. Clinical correlation is essential. Serum or plasma urea nitroge n measurement (mass/volume)on 06-17-2022 Urea nitrogen [Mass/Vol] 20 mg/dL 7-18 [facility] Work Phone: Squamous epithelial cells de tection in urine sediment by light microscopyon 06-17-2022 Epithelial cells.squamous LM Ql (Urine sed) 0-5 SEEN /hpf 0-5 [facility] Work Phone: Urine blood detectionon 08- RBC Ql (U) Negative Negative [facility] Work Phone: RBC Ql (U) 0 SEEN /hpf 0-5 [facility] Work Phone: Urine clarityon 06-17-2022 Clarity (U) Clear Clear [facility] Work Phone: Urine color determinationon 06-17-2022 Color (U) Yellow Yellow [facility] Work Phone: Urine creatinine measurement (mass/volume)on 06-17-2022 Creatinine (U) [Mass/Vol] 118.00 mg/dL NO RANGE EST. [facility] Work Phone: Urine glucose detectionon Glucose Ql (U) Normal mg/dl Normal [facility] Work Phone: Urine leukocyte esterase det ection by dipstickon 06-17-2022 Leukocyte esterase Test strip Ql (U) 100 /ul Negative [facility] Work Phone: Urine pHon 06-17-2022 pH (U) 6.0 [pH] 5.0 - 8.0 [facility] Work Phone: [phone] Urine protein measurement (m ass/volume)on 06-17-2022 Protein (U) [Mass/Vol] 22.0 mg/dL 0.0-11.8 [facility] Work Phone: [phone] Urine protein/creatinine mas s ratioon 06-17-2022 Protein/Creatinine (U) [Mass ratio] 186 mg/g CRE 0-200 [facility] Work Phone: [phone] Urine sediment bacteria coun t by microscopy (number/high power field)on 06-17-2022 Bacteria LM.HPF (Urine sed) [#/Area] 0 /[HPF] None Seen [facility] Work Phone: Urine specific gravity measu rementon 06-17-2022 Specific gravity (U) [Rel density] 1.015 1.002-1.03 0 [facility] Work Phone: [phone] Urobilinogen Auto test strip Ql (U)on 06-17-2022 Urobilinogen Ql (U) Normal mg/dl Normal [facility] Work Phone: No Panel Informationon 05-27 [place] Level 0.40 mmol/L 0.60-1.20 [facility] Work Phone: Serum or plasma uric acid me asurement (mass/volume)on 05-27-2022 Urate [Mass/Vol] 6.1 mg/dL 3.5-7.2 [facility] Work Phone: Comment on above: The drugs N-Acetylcy steine and Metamizole may falsely depress this assay. Absolute lymphocyte counton 05-20-2022 Lymphocytes Auto (Unsp spec) [#/Vol] 2.07 10*3/uL 0.83-4.51 [facility] Work Phone: Basophil percentageon 2021 Basophil percentage 3.2 mg/dL 2.5-4.9 [facility] Work Phone: Basophils/100 WBC (Bld) 0.7 % 0-1 [facility] Work Phone: Chloride [Moles/Vol] 108 mmol/L 98-107 [facility] Work Phone: Eosinophils/100 WBC (Bld) 2.5 % 0-5 [facility] Work Phone: Glucose [Mass/Vol] 149 mg/dL 74-106 [facility] Work Phone: Comment on above: Fasting Glucose resu lt greater than or equal to 126 mg/dL suggests DIABETES MELLITUS per A.D.A. criteria. Neutrophils (Bld) [#/Vol] 6.4 10*3/uL 2.0-7.7 [facility] Work Phone: Neutrophils/100 WBC (Bld) 65.6 % 47-70 [facility] Work Phone: Potassium [Moles/Vol] 3.9 mmol/L 3.5-5.1 [facility]: Sodium [Moles/Vol] 140 mmol/L 136-145 [facility] Work Phone: WBC (Bld) [#/Vol] 9.7 10*3/uL 4.4-11.0 [facility] Work Phone: Basophil percentage 0-5 SEEN /hpf 0-5 [facility] Work Phone: Bilirubin Test strip Ql (U)o n 05-20-2022 Bilirubin Ql (U) Negative Negative [facility] Work Phone: Blood erythrocytes count (nu mber/volume)on 05-20-2022 RBC (Bld) [#/Vol] 4.36 10*6/uL 4.6-6.2 [facility] Work Phone: [phone] Blood hemoglobin measurement (mass/volume)on 05-20-2022 Hemoglobin (Bld) [Mass/Vol] 12.9 g/dL 13.0-16.5 [facility] Work Phone: Blood lymphocytes/100 leukoc yteson 05-20-2022 Lymphocytes/100 WBC (Bld) 21.4 % 19-41 [facility] Work Phone: Blood monocytes/100 leukocyt eson 05-20-2022 Monocytes/100 WBC (Bld) 9.3 % 0-10 [facility] Work Phone: Blood platelet mean volumeon 05-20-2022 Platelet mean volume (Bld) [Entitic vol] 9.6 fL 6.2-12.0 [facility] Work Phone: [phone] Determination of erythrocyte mean corpuscular volume (MCV)on 05-20-2022 MCV (RBC) [Entitic vol] 91.5 fL 80-94 [facility] Work Phone: [phone] Hematocrit Auto (Bld) [Volum e fraction]on 05-20-2022 Hematocrit (Bld) [Volume fraction] 39.9 % 40-54 [facility] Work Phone: [phone] Ketones Test strip Ql (U)on 05-20-2022 Ketones Ql (U) Negative Negative [facility] Work Phone: Laboratory - Chemistry and C hemistry - challengeon 05-20-2022 CO2 [Moles/Vol] 26.0 mmol/L 21.0-32.0 [facility] Work Phone: [phone] Urea nitrogen/Creatinine [Mass ratio] 9.9 mg/mg 10-20 [facility] Work Phone: [phone] Laboratory - Hematology and Cell countson 05-20-2022 Erythrocyte distribution width (RBC) [Entitic vol] 45.7 fL 35.1-43.9 [facility] Work Phone: [phone] Erythrocyte distribution width (RBC) [Ratio] 13.6 % 11.6-14.6 [facility] Work Phone: [phone] Immature granulocytes/100 WBC (Bld) 0.500 % 0.0-0.9 [facility] Work Phone: Comment on above: IG% - Immature Granu locytes (promyelocytes, myelocytes and metamyelocytes) > 1% indicates that a LEFT SHIFT is Present. MCH (RBC) [Entitic mass] 29.6 pg 27.0-32.0 [facility] Work Phone: Nucleated RBC/100 WBC (Bld) [Ratio] 0 % 0-5 [facility] Work Phone: MCHC Auto (RBC) [Mass/Vol]on 05-20-2022 MCHC (RBC) [Mass/Vol] 32.3 g/dL 32-36 [facility] Work Phone: Mucus LM Ql (Urine sed)on Mucus Ql (Urine sed) 0 SEEN /hpf [facility] Work Phone: Nitrite Test strip Ql (U)on 05-20-2022 Nitrite Ql (U) Negative Negative [facility] Work Phone: No Panel Informationon 05-20 Estimated GFR (MDRD) Amer 53 mL/min >60 [facility] Work Phone: Comment on above: GFR Calc Estimated GFR (MDRD) Non-Af Amer 44 mL/min >60 [facility] Work Phone: Comment on above: Non- GFR Calc Platelets bldon 05-20-2022 Platelets (Bld) [#/Vol] 197 10*3/uL 150-450 [facility] Work Phone: Protein Test strip Ql (U)on 05-20-2022 Protein Ql (U) Negative Negative [facility] Work Phone: Serum or plasma albumin you urement (mass/volume)on 05-20-2022 Albumin [Mass/Vol] 2.7 g/dL 3.2-5.0 [facility] Work Phone: Serum or plasma calcium you urement (mass/volume)on 05-20-2022 Calcium [Mass/Vol] 9.0 mg/dL 8.5-10.1 [facility] Work Phone: Serum or plasma creatinine m easurement (mass/volume)on 05-20-2022 Creatinine [Mass/Vol] 1.71 mg/dL 0.70-1.30 [facility] Work Phone: Comment on above: The validity of the calculated GFR & GFRAA in patients over 70 years has not been determined. Clinical correlation is essential. Serum or plasma urea nitroge n measurement (mass/volume)on 05-20-2022 Urea nitrogen [Mass/Vol] 17 mg/dL 7-18 [facility] Work Phone: Squamous epithelial cells de tection in urine sediment by light microscopyon 05-20-2022 Epithelial cells.squamous LM Ql (Urine sed) 0-5 SEEN /hpf 0-5 [facility] Work Phone: Urine blood detectionon RBC Ql (U) Negative Negative [facility] Work Phone: RBC Ql (U) 0 SEEN /hpf 0-5 [facility] Work Phone: Urine clarityon 05-20-2022 Clarity (U) Clear Clear [facility] Work Phone: Urine color determinationon 05-20-2022 Color (U) Yellow Yellow [facility] Work Phone: Urine creatinine measurement (mass/volume)on 05-20-2022 Creatinine (U) [Mass/Vol] 107.00 mg/dL NO RANGE EST. [facility] Work Phone: Urine glucose detectionon Glucose Ql (U) Normal mg/dl Normal [facility] Work Phone: Urine leukocyte esterase det ection by dipstickon 05-20-2022 Leukocyte esterase Test strip Ql (U) 25 /ul Negative [facility] Work Phone: Urine pHon 05-20-2022 pH (U) 6.5 [pH] 5.0 - 8.0 [facility] Work Phone: Urine protein measurement (m ass/volume)on 05-20-2022 Protein (U) [Mass/Vol] 17.3 mg/dL 0.0-11.8 [facility] Work Phone: Urine protein/creatinine mas s ratioon 05-20-2022 Protein/Creatinine (U) [Mass ratio] 162 mg/g CRE 0-200 [facility] Work Phone: Urine sediment bacteria coun t by microscopy (number/high power field)on 05-20-2022 Bacteria LM.HPF (Urine sed) [#/Area] 0 /[HPF] None Seen [facility] Work Phone: Urine specific gravity measu rementon 05-20-2022 Specific gravity (U) [Rel density] 1.010 1.002-1.03 0 [facility] Work Phone: Urobilinogen Auto test strip Ql (U)on 05-20-2022 Urobilinogen Ql (U) Normal mg/dl Normal [facility] Work [facility]: [phone] No Panel Informationon 05-05 [facility] Absolute lymphocyte counton 04-27-2022 Lymphocytes Auto (Unsp spec) [#/Vol] 2.36 10*3/uL 0.83-4.51 [facility] Work Phone: Basophil percentageon 2021 Basophil percentage 4.6 mg/dL 2.5-4.9 [facility] Work Phone: Basophils/100 WBC (Bld) 0.3 % 0-1 [facility] Work Phone: Chloride [Moles/Vol] 104 mmol/L 98-[address] [facility] Work Phone: Eosinophils/100 WBC (Bld) 0.1 % 0-5 [facility] Work Phone: Glucose [Mass/Vol] 190 mg/dL 74-106 [facility] Work [facility]: Comment on above: Fasting Glucose resu lt greater than or equal to 126 mg/dL suggests DIABETES MELLITUS per A.D.A. criteria. Neutrophils (Bld) [#/Vol] 10.5 10*3/uL 2.0-7.7 [facility] Work Phone: Neutrophils/100 WBC (Bld) 72.0 % 47-70 [facility] Work Phone: Potassium [Moles/Vol] 3.8 mmol/L 3.5-5.1 [facility] [facility] Work Phone: Sodium [Moles/Vol] 140 mmol/L 136-145 [facility] Work Phone: WBC (Bld) [#/Vol] 14.5 10*3/uL 4.4-11.0 [facility] Work Phone: Blood erythrocytes count (nu mber/volume)on 04-27-2022 RBC (Bld) [#/Vol] 4.56 10*6/uL 4.6-6.2 [facility] Work Phone: Blood hemoglobin measurement (mass/volume)on 04-27-2022 Hemoglobin (Bld) [Mass/Vol] 13.4 g/dL 13.0-16.5 [facility] Work Phone: Blood lymphocytes/100 leukoc yteson 04-27-2022 Lymphocytes/100 WBC (Bld) 16.3 % 19-41 [facility] Work Phone: Blood monocytes/100 leukocyt eson 04-27-2022 Monocytes/100 WBC (Bld) 7.6 % 0-10 [facility] Work Phone: Blood platelet mean volumeon 04-27-2022 Platelet mean volume (Bld) [Entitic vol] 9.2 fL 6.2-12.0 [facility] Work Phone: Determination of erythrocyte mean corpuscular volume (MCV)on 04-27-2022 MCV (RBC) [Entitic vol] 91.0 fL 80-94 [facility] Work Phone: Hematocrit Auto (Bld) [Volum e fraction]on 04-27-2022 Hematocrit (Bld) [Volume fraction] 41.5 % 40-54 [facility] Work Phone: Laboratory - Chemistry and C hemistry - challengeon 04-27-2022 CO2 [Moles/Vol] 28.0 mmol/L 21.0-32.0 [facility] Work Phone: Urea nitrogen/Creatinine [Mass ratio] 13.4 mg/mg 10-20 [facility] Work Phone: Laboratory - Hematology and Cell countson 04-27-2022 Erythrocyte distribution width (RBC) [Entitic vol] 45.7 fL 35.1-43.9 [facility] Work Phone: Erythrocyte distribution width (RBC) [Ratio] 13.7 % 11.6-14.6 [facility] Work Phone: Immature granulocytes/100 WBC (Bld) 3.700 % 0.0-0.9 [facility] Work Phone: Comment on above: IG% - Immature Granu locytes (promyelocytes, myelocytes and metamyelocytes) > 1% indicates that a LEFT SHIFT is Present. MCH (RBC) [Entitic mass] 29.4 pg 27.0-32.0 [facility] Work Phone: Nucleated RBC/100 WBC (Bld) [Ratio] 0.1 % 0-5 [facility] Work Phone: MCHC Auto (RBC) [Mass/Vol]on 04-27-2022 MCHC (RBC) [Mass/Vol] 32.3 g/dL 32-36 [facility] Work Phone: No Panel Informationon 04-27 Estimated GFR (MDRD) Amer 44 mL/min >60 [facility] Work Phone: Comment on above: GFR Calc Estimated GFR (MDRD) Non-Af Amer 36 mL/min >60 [facility] Work Phone: Comment on above: Non- GFR Calc [place] Level 0.50 mmol/L 0.60-1.20 [facility] Work Phone: Platelets bldon 04-27-2022 Platelets (Bld) [#/Vol] 243 10*3/uL 150-450 [facility] Work Phone: [phone] Serum or plasma albumin you urement (mass/volume)on 04-27-2022 Albumin [Mass/Vol] 2.9 g/dL 3.2-5.0 [facility] Work Phone: [phone] Serum or plasma calcium you urement (mass/volume)on 04-27-2022 Calcium [Mass/Vol] 9.3 mg/dL 8.5-10.1 [facility] Work Phone: [phone] Serum or plasma creatinine m easurement (mass/volume)on 04-27-2022 Creatinine [Mass/Vol] 2.02 mg/dL 0.70-1.30 [facility] Work Phone: Comment on above: The validity of the calculated GFR & GFRAA in patients over 70 years has not been determined. Clinical correlation is essential. Serum or plasma urea nitroge n measurement (mass/volume)on 04-27-2022 Urea nitrogen [Mass/Vol] 27 mg/dL 7-18 [facility] Work Phone: Serum or plasma uric acid me asurement (mass/volume)on 04-27-2022 Urate [Mass/Vol] 6.5 mg/dL 3.5-7.2 [facility] Work Phone: Comment on above: The drugs N-Acetylcy steine and Metamizole may falsely depress this assay. Urine creatinine measurement (mass/volume)on 04-27-2022 Creatinine (U) [Mass/Vol] 69.70 mg/dL NO RANGE EST. [facility] Work Phone: [phone] Urine protein measurement (m ass/volume)on 04-27-2022 Protein (U) [Mass/Vol] 10.2 mg/dL 0.0-11.8 [facility] Work Phone: [phone] Urine protein/creatinine mas s ratioon 04-27-2022 Protein/Creatinine (U) [Mass ratio] 146 mg/g CRE 0-200 [facility] Work Phone: Basophil percentageon 2021 Basophil percentage 4.2 mg/dL 2.5-4.9 [facility] Work Phone: Chloride [Moles/Vol] 107 mmol/L 98-107 [facility] Work Phone: Glucose [Mass/Vol] 129 mg/dL 74-106 [facility] Work Phone: Comment on above: Fasting Glucose resu lt greater than or equal to 126 mg/dL suggests DIABETES MELLITUS per A.D.A. criteria. Potassium [Moles/Vol] 3.8 mmol/L 3.5-5.1 [facility] Work Phone: Sodium [Moles/Vol] 140 mmol/L 136-145 [facility] Work Phone: Basophil percentage 25-50 SEEN /hpf 0-5 [facility] Work Phone: Bilirubin Test strip Ql (U)o n 04-22-2022 Bilirubin Ql (U) Negative Negative [facility] Work Phone: Culture, urineon 04-22-2022 Bacteria identified Cx Nom (U) Positive [facility] Work Phone: Ketones Test strip Ql (U)on 04-22-2022 Ketones Ql (U) Negative Negative [facility] Work Phone: Laboratory - Chemistry and C hemistry - challengeon 04-22-2022 CO2 [Moles/Vol] 27.0 mmol/L 21.0-32.0 [facility] Work Phone: Urea nitrogen/Creatinine [Mass ratio] 8.2 mg/mg 10-20 [facility] Work Phone: Mucus LM Ql (Urine sed)on Mucus Ql (Urine sed) 0 SEEN /hpf [facility] Work Phone: Nitrite Test strip Ql (U)on 04-22-2022 Nitrite Ql (U) Negative Negative [facility] Work Phone: No Panel Informationon 04-22 Estimated GFR (MDRD) Amer 53 mL/min >60 [facility] Work Phone: Comment on above: GFR Calc Estimated GFR (MDRD) Non-Af Amer 44 mL/min >60 [facility] Work Phone: Comment on above: Non- GFR Calc Protein Test strip Ql (U)on 04-22-2022 Protein Ql (U) 15 mg/dl Negative [facility] Work Phone: Serum or plasma albumin you urement (mass/volume)on 04-22-2022 Albumin [Mass/Vol] 2.6 g/dL 3.2-5.0 [facility] Work Phone: Serum or plasma calcium you urement (mass/volume)on 04-22-2022 Calcium [Mass/Vol] 9.1 mg/dL 8.5-10.1 [facility] Work Phone: Serum or plasma creatinine m easurement (mass/volume)on 04-22-2022 Creatinine [Mass/Vol] 1.71 mg/dL 0.70-1.30 [facility] Work Phone: Comment on above: The validity of the calculated GFR & GFRAA in patients over 70 years has not been determined. Clinical correlation is essential. Serum or plasma urea nitroge n measurement (mass/volume)on 04-22-2022 Urea nitrogen [Mass/Vol] 14 mg/dL 7-18 [facility] Work Phone: Squamous epithelial cells de tection in urine sediment by light microscopyon 04-22-2022 Epithelial cells.squamous LM Ql (Urine sed) 0-5 SEEN /hpf 0-5 [facility] Work Phone: Urine blood detectionon RBC Ql (U) 10 /ul Negative [facility] Work Phone: RBC Ql (U) 0-5 SEEN /hpf 0-5 [facility] Work Phone: Urine clarityon 04-22-2022 Clarity (U) Clear Clear [facility] Work Phone: Urine color determinationon 04-22-2022 Color (U) Yellow Yellow [facility] Work Phone: [phone] Urine creatinine measurement (mass/volume)on 04-22-2022 Creatinine (U) [Mass/Vol] 171.00 mg/dL NO RANGE EST. [facility] Work Phone: [phone] Urine glucose detectionon Glucose Ql (U) Normal mg/dl Normal [facility] [facility] Work Phone: [phone] Urine leukocyte esterase det ection by dipstickon 04-22-2022 Leukocyte esterase Test strip Ql (U) 500 /ul Negative [facility] Work Phone: [phone] Urine pHon 04-22-2022 pH (U) 6.0 [pH] 5.0 - 8.0 [facility] Work Phone: [phone] Urine protein measurement (m ass/volume)on 04-22-2022 Protein (U) [Mass/Vol] 30.4 mg/dL 0.0-11.8 [facility] Work Phone: [phone] Urine protein/creatinine mas s ratioon 04-22-2022 Protein/Creatinine (U) [Mass ratio] 178 mg/g CRE 0-200 [facility] Work Phone: [phone] Urine sediment bacteria coun t by microscopy (number/high power field)on 04-22-2022 Bacteria LM.HPF (Urine sed) [#/Area] 0 /[HPF] None Seen [facility] Work Phone: Urine specific gravity measu rementon 04-22-2022 Specific gravity (U) [Rel density] 1.015 1.002-1.03 0 [facility] Work Phone: Urobilinogen Auto test strip Ql (U)on 04-22-2022 Urobilinogen Ql (U) Normal mg/dl Normal [facility] Work Phone: [phone] Absolute lymphocyte counton 04-21-2022 Lymphocytes Auto (Unsp spec) [#/Vol] 2.19 10*3/uL 0.83-4.51 [facility] Work Phone: Basophil percentageon 2021 Basophils/100 WBC (Bld) 0.6 % 0-1 [facility] Work Phone: Eosinophils/100 WBC (Bld) 2.4 % 0-5 [facility] Work Phone: Neutrophils (Bld) [#/Vol] 5.3 10*3/uL 2.0-7.7 [facility] Work Phone: Neutrophils/100 WBC (Bld) 60.5 % 47-70 [facility] Work Phone: WBC (Bld) [#/Vol] 8.8 10*3/uL 4.4-11.0 [facility] Work Phone: Blood erythrocytes count (nu mber/volume)on 04-21-2022 RBC (Bld) [#/Vol] 4.29 10*6/uL 4.6-6.2 [facility]: Blood hemoglobin measurement (mass/volume)on 04-21-2022 Hemoglobin (Bld) [Mass/Vol] 12.9 g/dL 13.0-16.5 [facility] Work Phone: Blood lymphocytes/100 leukoc yteson 04-21-2022 Lymphocytes/100 WBC (Bld) 24.9 % 19-41 [facility] Work Phone: Blood monocytes/100 leukocyt eson 04-21-2022 Monocytes/100 WBC (Bld) 11.4 % 0-10 [facility] Work Phone: Blood platelet mean volumeon 04-21-2022 Platelet mean volume (Bld) [Entitic vol] 9.5 fL 6.2-12.0 [facility] Work Phone: Determination of erythrocyte mean corpuscular volume (MCV)on 04-21-2022 MCV (RBC) [Entitic vol] 92.1 fL 80-94 [facility] Work Phone: Hematocrit Auto (Bld) [Volum e fraction]on 04-21-2022 Hematocrit (Bld) [Volume fraction] 39.5 % 40-54 [facility] Work Phone: Laboratory - Hematology and Cell countson 04-21-2022 Erythrocyte distribution width (RBC) [Entitic vol] 45.9 fL 35.1-43.9 [facility] Work Phone: [phone] Erythrocyte distribution width (RBC) [Ratio] 13.5 % 11.6-14.6 [facility] Work Phone: [phone] Immature granulocytes/100 WBC (Bld) 0.200 % 0.0-0.9 [facility] Work Phone: Comment on above: IG% - Immature Granu locytes (promyelocytes, myelocytes and metamyelocytes) > 1% indicates that a LEFT SHIFT is Present. MCH (RBC) [Entitic mass] 30.1 pg 27.0-32.0 [facility] Work Phone: [phone] Nucleated RBC/100 WBC (Bld) [Ratio] 0 % 0-5 [facility] Work Phone: [phone] MCHC Auto (RBC) [Mass/Vol]on 04-21-2022 MCHC (RBC) [Mass/Vol] 32.7 g/dL 32-36 [facility] Work Phone: [phone] Platelets bldon 04-21-2022 Platelets (Bld) [#/Vol] 199 10*3/uL 150-450 [facility] Work Phone: Serum or plasma uric acid me asurement (mass/volume)on 04-21-2022 Urate [Mass/Vol] 6.2 mg/dL 3.5-7.2 [facility] Work Phone: Comment on above: The drugs N-Acetylcy steine and Metamizole may falsely depress this assay. Laboratory - Microbiology an d Antimicrobial susceptibilityon 04-06-2022 SARS-CoV-2 (COVID-19) RNA AMANDO+probe Ql (Unsp spec) Detected Not Detect [facility] Work Phone: Comment on above: Normal Reference [...] Auto (Unsp spec) [#/Vol] 1.96 10*3/uL 0.83-4.51 [facility] Work Phone: [phone] Basophil percentageon 2021 Basophils/100 WBC (Bld) 0.6 % 0-1 [facility] Work Phone: Chloride [Moles/Vol] 103 mmol/L 98-107 [facility] Work Phone: Eosinophils/100 WBC (Bld) 0.6 % 0-5 [facility] Work Phone: [phone] Glucose [Mass/Vol] 133 mg/dL 74-106 [facility] Work Phone: [phone] Comment on above: Fasting Glucose resu lt greater than or equal to 126 mg/dL suggests DIABETES MELLITUS per A.D.A. criteria. Neutrophils (Bld) [#/Vol] 7.3 10*3/uL 2.0-7.7 [facility] Work Phone: Neutrophils/100 WBC (Bld) 64.6 % 47-70 [facility] Work Phone: Potassium [Moles/Vol] 3.5 mmol/L 3.5-5.1 [facility] Work Phone: Sodium [Moles/Vol] 138 mmol/L 136-145 [facility] Work Phone: WBC (Bld) [#/Vol] 11.3 10*3/uL 4.4-11.0 [facility] Work Phone: Blood erythrocytes count (nu mber/volume)on 04-02-2022 RBC (Bld) [#/Vol] 4.81 10*6/uL 4.6-6.2 [facility] Work Phone: Blood hemoglobin measurement (mass/volume)on 04-02-2022 Hemoglobin (Bld) [Mass/Vol] 14.4 g/dL 13.0-16.5 [facility] Work Phone: Blood lymphocytes/100 leukoc yteson 04-02-2022 Lymphocytes/100 WBC (Bld) 17.3 % 19-41 [facility] Work Phone: Blood monocytes/100 leukocyt eson 04-02-2022 Monocytes/100 WBC (Bld) 15.7 % 0-10 [facility] Work Phone: Blood platelet mean volumeon 04-02-2022 Platelet mean volume (Bld) [Entitic vol] 10.0 fL 6.2-12.0 [facility] Work Phone: [phone] Determination of erythrocyte mean corpuscular volume (MCV)on 04-02-2022 MCV (RBC) [Entitic vol] 91.7 fL 80-94 [facility] Work Phone: Hematocrit Auto (Bld) [Volum e fraction]on 04-02-2022 Hematocrit (Bld) [Volume fraction] 44.1 % 40-54 [facility] Work Phone: [phone] Laboratory - Chemistry and C hemistry - challengeon 04-02-2022 CO2 [Moles/Vol] 26.0 mmol/L 21.0-32.0 [facility] Work Phone: Urea nitrogen/Creatinine [Mass ratio] 14.1 mg/mg -20 [facility] Work Phone: Laboratory - Hematology and Cell countson 04-02-2022 Erythrocyte distribution width (RBC) [Entitic vol] 47.8 fL 35.1-43.9 [facility] Work Phone: Erythrocyte distribution width (RBC) [Ratio] 14.0 % 11.6-14.6 [facility] Work Phone: Immature granulocytes/100 WBC (Bld) 1.200 % 0.0-0.9 [facility] Work Phone: Comment on above: IG% - Immature Granu locytes (promyelocytes, myelocytes and metamyelocytes) > 1% indicates that a LEFT SHIFT is Present. MCH (RBC) [Entitic mass] 29.9 pg 27.0-32.0 [facility] Work Phone: Nucleated RBC/100 WBC (Bld) [Ratio] 0 % 0-5 [facility] Work Phone: MCHC Auto (RBC) [Mass/Vol]on 04-02-2022 MCHC (RBC) [Mass/Vol] 32.7 g/dL 32-36 [facility] Work Phone: No Panel Informationon 04-02 Estimated GFR (MDRD) Amer 51 mL/min >60 [facility] Work Phone: Comment on above: GFR Calc Estimated GFR (MDRD) Non-Af Amer 42 mL/min >60 [facility] Work Phone: Comment on above: Non- GFR Calc Platelets bldon 04-02-2022 Platelets (Bld) [#/Vol] 160 10*3/uL 150-450 [facility] Work Phone: Review by pathologiston 03-15 Pathologist review Crispin (Unsp spec) [Interp] Reviewed [facility] Work Phone: Comment on above: Previous reported re sult: Bonnie kincaid Edited by: ETHEL on 04/06/22:912Leukocytosis. Tuan Servin M.D. 04/06/22 AMENDED REPORT 04/06/22 0913 PATH REV previously reported as: March Serum or plasma calcium you urement (mass/volume)on 04-02-2022 Calcium [Mass/Vol] 9.0 mg/dL 8.5-10.1 [facility] Work Phone: Serum or plasma creatinine m easurement (mass/volume)on 04-02-2022 Creatinine [Mass/Vol] 1.77 mg/dL 0.70-1.30 [facility] Work Phone: Comment on above: The validity of the calculated GFR & GFRAA in patients over 70 years has not been determined. Clinical correlation is essential. Serum or plasma urea nitroge n measurement (mass/volume)on 04-02-2022 Urea nitrogen [Mass/Vol] 25 mg/dL 7-18 [facility] Work Phone: Thin prep Papanicolaou smear with manual screeningon 04-02-2022 Thin prep Papanicolaou smear with manual screening 9 5-15 [facility] Work Phone: Absolute lymphocyte counton 03-25-2022 Lymphocytes Auto (Unsp spec) [#/Vol] 2.80 10*3/uL 0.83-4.51 [facility] Work Phone: Basophil percentageon 2021 Basophil percentage 4.0 mg/dL 2.5-4.9 [facility] Work Phone: [phone] Basophils/100 WBC (Bld) 0.6 % 0-1 [facility] Work Phone: [phone] Chloride [Moles/Vol] 106 mmol/L 98-107 [facility] Work Phone: [phone] Eosinophils/100 WBC (Bld) 1.7 % 0-5 [facility] Work Phone: [phone] Glucose [Mass/Vol] 164 mg/dL 74-106 [facility] Work Phone: Comment on above: Fasting Glucose resu lt greater than or equal to 126 mg/dL suggests DIABETES MELLITUS per A.D.A. criteria. Neutrophils (Bld) [#/Vol] 5.6 10*3/uL 2.0-7.7 [facility] Work Phone: Neutrophils/100 WBC (Bld) 56.9 % 47-70 [facility] Work Phone: Potassium [Moles/Vol] 3.8 mmol/L 3.5-5.1 [facility] Work Phone: Sodium [Moles/Vol] 139 mmol/L 136-145 [facility] Work Phone: WBC (Bld) [#/Vol] 9.8 10*3/uL 4.4-11.0 [facility] Work Phone: Basophil percentage 0-5 SEEN /hpf 0-5 [facility] Work Phone: [phone] Bilirubin Test strip Ql (U)o n 03-25-2022 Bilirubin Ql (U) Negative Negative [facility] Work Phone: [phone] Blood erythrocytes count (nu mber/volume)on 03-25-2022 RBC (Bld) [#/Vol] 4.77 10*6/uL 4.6-6.2 [facility] Work [facility]: [phone] Blood hemoglobin measurement (mass/volume)on 03-25-2022 Hemoglobin (Bld) [Mass/Vol] 14.1 g/dL 13.0-16.5 [facility] Work Phone: Blood lymphocytes/100 leukoc yteson 03-25-2022 Lymphocytes/100 WBC (Bld) 28.7 % 19-41 [facility] Work Phone: Blood monocytes/100 leukocyt eson 03-25-2022 Monocytes/100 WBC (Bld) 9.2 % 0-10 [facility] Work Phone: Blood platelet mean volumeon 03-25-2022 Platelet mean volume (Bld) [Entitic vol] 9.3 fL 6.2-12.0 [facility] Work Phone: [phone] Determination of erythrocyte mean corpuscular volume (MCV)on 03-25-2022 MCV (RBC) [Entitic vol] 91.4 fL 80-94 [facility] Work Phone: Hematocrit Auto (Bld) [Volum e fraction]on 03-25-2022 Hematocrit (Bld) [Volume fraction] 43.6 % 40-54 [facility] Work Phone: Ketones Test strip Ql (U)on 03-25-2022 Ketones Ql (U) Negative Negative [facility] Work Phone: Laboratory - Chemistry and C hemistry - challengeon 03-25-2022 CO2 [Moles/Vol] 26.0 mmol/L 21.0-32.0 [facility] Work Phone: Urea nitrogen/Creatinine [Mass ratio] 15.4 mg/mg 10-20 [facility] Work Phone: Laboratory - Hematology and Cell countson 03-25-2022 Erythrocyte distribution width (RBC) [Entitic vol] 45.9 fL 35.1-43.9 [facility] Work Phone: [phone] Erythrocyte distribution width (RBC) [Ratio] 13.6 % 11.6-14.6 [facility] Work Phone: [phone] Immature granulocytes/100 WBC (Bld) 2.900 % 0.0-0.9 [facility] Work Phone: Comment on above: IG% - Immature Granu locytes (promyelocytes, myelocytes and metamyelocytes) > 1% indicates that a LEFT SHIFT is Present. MCH (RBC) [Entitic mass] 29.6 pg 27.0-32.0 [facility] Work Phone: [phone] Nucleated RBC/100 WBC (Bld) [Ratio] 0 % 0-5 [facility] Work Phone: [phone] MCHC Auto (RBC) [Mass/Vol]on 03-25-2022 MCHC (RBC) [Mass/Vol] 32.3 g/dL 32-36 [facility] Work Phone: [phone] Mucus LM Ql (Urine sed)on Mucus Ql (Urine sed) 0 SEEN /hpf [facility] Work Phone: Nitrite Test strip Ql (U)on 03-25-2022 Nitrite Ql (U) Negative Negative [facility] Work Phone: No Panel Informationon 03-25 Estimated GFR (MDRD) Amer 52 mL/min >60 [facility] Work Phone: Comment on above: GFR Calc Estimated GFR (MDRD) Non-Af Amer 43 mL/min >60 [facility] Work Phone: Comment on above: Non- GFR Calc Platelets bldon 03-25-2022 Platelets (Bld) [#/Vol] 276 10*3/uL 150-450 [facility] Work Phone: Protein Test strip Ql (U)on 03-25-2022 Protein Ql (U) Negative Negative [facility] Work Phone: Serum or plasma albumin you urement (mass/volume)on 03-25-2022 Albumin [Mass/Vol] 2.9 g/dL 3.2-5.0 [facility] Work Phone: Serum or plasma calcium you urement (mass/volume)on 03-25-2022 Calcium [Mass/Vol] 8.7 mg/dL 8.5-10.1 [facility] Work Phone: Serum or plasma creatinine m easurement (mass/volume)on 03-25-2022 Creatinine [Mass/Vol] 1.75 mg/dL 0.70-1.30 [facility] Work Phone: Comment on above: The validity of the calculated GFR & GFRAA in patients over 70 years has not been determined. Clinical correlation is essential. Serum or plasma urea nitroge n measurement (mass/volume)on 03-25-2022 Urea nitrogen [Mass/Vol] 27 mg/dL 7-18 [facility] Work Phone: Squamous epithelial cells de tection in urine sediment by light microscopyon 03-25-2022 Epithelial cells.squamous LM Ql (Urine sed) 0-5 SEEN /hpf 0-5 [facility] Work Phone: Urine blood detectionon 03-14 RBC Ql (U) Negative Negative [facility] Work Phone: [phone] RBC Ql (U) 0 SEEN /hpf 0-5 [facility] Work Phone: Urine clarityon 03-25-2022 Clarity (U) Sl. Cloudy Clear [facility] Work Phone: Urine color determinationon 03-25-2022 Color (U) Yellow Yellow [facility] Work Phone: Urine creatinine measurement (mass/volume)on 03-25-2022 Creatinine (U) [Mass/Vol] 90.50 mg/dL NO RANGE EST. [facility] Work Phone: Urine glucose detectionon Glucose Ql (U) Normal mg/dl Normal [facility] Work Phone: Urine leukocyte esterase det ection by dipstickon 03-25-2022 Leukocyte esterase Test strip Ql (U) 25 /ul Negative [facility] Work Phone: Urine pHon 03-25-2022 pH (U) 6.0 [pH] 5.0 - 8.0 [facility] Work Phone: [phone] Urine protein measurement (m ass/volume)on 03-25-2022 Protein (U) [Mass/Vol] 15.8 mg/dL 0.0-11.8 [facility] Work Phone: Urine protein/creatinine mas s ratioon 03-25-2022 Protein/Creatinine (U) [Mass ratio] 175 mg/g CRE 0-200 [facility] Work Phone: [phone] Urine sediment bacteria coun t by microscopy (number/high power field)on 03-25-2022 Bacteria LM.HPF (Urine sed) [#/Area] 0 /[HPF] None Seen [facility] Work Phone: Urine specific gravity measu rementon 03-25-2022 Specific gravity (U) [Rel density] 1.015 1.002-1.03 0 [facility] Work Phone: Urobilinogen Auto test strip Ql (U)on 03-25-2022 Urobilinogen Ql (U) Normal mg/dl Normal [facility] Work Phone: [phone] Serum or plasma uric acid me asurement (mass/volume)on 03-19-2022 Urate [Mass/Vol] 8.3 mg/dL 3.5-7.2 [facility] Work Phone: [phone] Comment on above: The drugs N-Acetylcy steine and Metamizole may falsely depress this assay. Absolute lymphocyte counton 02-25-2022 Lymphocytes Auto (Unsp spec) [#/Vol] 2.27 10*3/uL 0.83-4.51 [facility] Work Phone: [phone] Basophil percentageon 2021 Basophil percentage 0 SEEN /hpf 0-5 [facility] Work Phone: [phone] Basophil percentage 4.3 mg/dL 2.5-4.9 [facility] Work Phone: Basophils/100 WBC (Bld) 0.3 % 0-1 [facility] Work Phone: [phone] Chloride [Moles/Vol] 102 mmol/L 98-107 [facility] Work Phone: Eosinophils/100 WBC (Bld) 0.2 % 0-5 [facility] Work Phone: [phone] Glucose [Mass/Vol] 107 mg/dL 74-106 [facility] Work Phone: [phone] Comment on above: Fasting Glucose resu lt from 100 to 125 mg/dL suggests IMPAIRED HOMEOSTASIS per A.D.A. criteria. Neutrophils (Bld) [#/Vol] 7.8 10*3/uL 2.0-7.7 [facility] Work Phone: [phone] Neutrophils/100 WBC (Bld) 67.9 % 47-70 [facility] Work Phone: [phone] Potassium [Moles/Vol] 4.1 mmol/L 3.5-5.1 [facility] Work Phone: [phone] Comment on above: Moderate Hemolysis, Result may be falsely increased. Sodium [Moles/Vol] 137 mmol/L 136-145 [facility] Work Phone: [phone] WBC (Bld) [#/Vol] 11.6 10*3/uL 4.4-11.0 [facility] Work Phone: [phone] Bilirubin Test strip Ql (U)o n 02-25-2022 Bilirubin Ql (U) Negative Negative [facility] Work Phone: [phone] Blood erythrocytes count (nu mber/volume)on 02-25-2022 RBC (Bld) [#/Vol] 4.09 10*6/uL 4.6-6.2 [facility] Work Phone: [phone] Blood hemoglobin measurement (mass/volume)on 02-25-2022 Hemoglobin (Bld) [Mass/Vol] 12.0 g/dL 13.0-16.5 [facility] Work Phone: Blood lymphocytes/100 leukoc yteson 02-25-2022 Lymphocytes/100 WBC (Bld) 19.7 % 19-41 [facility] Work Phone: Blood monocytes/100 leukocyt eson 02-25-2022 Monocytes/100 WBC (Bld) 9.0 % 0-10 [facility] Work Phone: [phone] Blood platelet adequacy dete ction by light microscopyon 02-25-2022 Platelets LM Ql (Bld) [facility]: Blood platelet mean volumeon 02-25-2022 Platelet mean volume (Bld) [Entitic vol] 9.9 fL 6.2-12.0 [facility] Work Phone: [phone] Culture, urineon 02-25-2022 Bacteria identified Cx Nom (U) Culture exhibits no growth. [facility] Work Phone: [phone] Determination of erythrocyte mean corpuscular volume (MCV)on 02-25-2022 MCV (RBC) [Entitic vol] 90.2 fL 80-94 [facility] Work Phone: Hematocrit Auto (Bld) [Volum e fraction]on 02-25-2022 Hematocrit (Bld) [Volume fraction] 36.9 % 40-54 [facility] Work Phone: Ketones Test strip Ql (U)on 02-25-2022 Ketones Ql (U) Negative Negative [facility] Work Phone: Laboratory - Chemistry and C hemistry - challengeon 02-25-2022 CO2 [Moles/Vol] 26.0 mmol/L 21.0-32.0 [facility] Work Phone: Urea nitrogen/Creatinine [Mass ratio] 18.6 mg/mg 10-20 [facility] Work Phone: Laboratory - Hematology and Cell countson 02-25-2022 Erythrocyte distribution width (RBC) [Entitic vol] 46.8 fL 35.1-43.9 [facility] Work Phone: Erythrocyte distribution width (RBC) [Ratio] 14.1 % 11.6-14.6 [facility] Work Phone: Immature granulocytes/100 WBC (Bld) 2.900 % 0.0-0.9 [facility] Work Phone: Comment on above: IG% - Immature Granu locytes (promyelocytes, myelocytes and metamyelocytes) > 1% indicates that a LEFT SHIFT is Present. MCH (RBC) [Entitic mass] 29.3 pg 27.0-32.0 [facility] Work Phone: Nucleated RBC/100 WBC (Bld) [Ratio] 0 % 0-5 [facility] Work Phone: MCHC Auto (RBC) [Mass/Vol]on 02-25-2022 MCHC (RBC) [Mass/Vol] 32.5 g/dL 32-36 [facility] Work Phone: Mucus LM Ql (Urine sed)on Mucus Ql (Urine sed) 0 SEEN /hpf [facility] Work Phone: Nitrite Test strip Ql (U)on 02-25-2022 Nitrite Ql (U) Negative Negative [facility] Work Phone: No Panel Informationon 02-25 Estimated GFR (MDRD) Amer 43 mL/min >60 [facility] Work Phone: Comment on above: GFR Calc Estimated GFR (MDRD) Non-Af Amer 36 mL/min >60 [facility] Work Phone: Comment on above: Non- GFR Calc [place] Level 0.50 mmol/L 0.60-1.20 [facility] Work Phone: Platelets bldon 02-25-2022 Platelets (Bld) [#/Vol] TNP [facility] Work Phone: Comment on above: Test not performedPl ease note: For this sample, a platelet estimate is provided rather than a platelet count due to platelet clumping. Other parameters associated with this sample are not affected by platelet clumping. If a more accurate platelet count is required, a redraw of the patient will be necessary.Previous reported result: 202 [id number] by: RUPERTO on 02/25/22:1032 AMENDED REPORT 02/25/22 1032 PLT previously reported as: 202 K/mm3 Protein Test strip Ql (U)on 02-25-2022 Protein Ql (U) Negative Negative [facility] Work Phone: Serum or plasma albumin you urement (mass/volume)on 02-25-2022 Albumin [Mass/Vol] 3.2 g/dL 3.2-5.0 [facility] Work Phone: Serum or plasma calcium you urement (mass/volume)on 02-25-2022 Calcium [Mass/Vol] 8.4 mg/dL 8.5-10.1 [facility] Work Phone: Serum or plasma creatinine m easurement (mass/volume)on 02-25-2022 Creatinine [Mass/Vol] 2.04 mg/dL 0.70-1.30 [facility] Work Phone: Comment on above: The validity of the calculated GFR & GFRAA in patients over 70 years has not been determined. Clinical correlation is essential. Serum or plasma urea nitroge n measurement (mass/volume)on 02-25-2022 Urea nitrogen [Mass/Vol] 38 mg/dL 7-18 [facility] Work Phone: Serum or plasma uric acid me asurement (mass/volume)on 02-25-2022 Urate [Mass/Vol] 7.8 mg/dL 3.5-7.2 [facility] Work Phone: Comment on above: The drugs N-Acetylcy steine and Metamizole may falsely depress this assay. Squamous epithelial cells de tection in urine sediment by light microscopyon 02-25-2022 Epithelial cells.squamous LM Ql (Urine sed) 0 SEEN /hpf 0-5 [facility] Work Phone: Urine blood detectionon 02-12 RBC Ql (U) Negative Negative [facility] Work Phone: RBC Ql (U) 0 SEEN /hpf 0-5 [facility] Work Phone: Urine clarityon 02-25-2022 Clarity (U) Clear Clear [facility] Work Phone: Urine color determinationon 02-25-2022 Color (U) Yellow Yellow [facility] Work Phone: Urine creatinine measurement (mass/volume)on 02-25-2022 Creatinine (U) [Mass/Vol] 82.80 mg/dL NO RANGE EST. [facility] Work Phone: Urine glucose detectionon Glucose Ql (U) Normal mg/dl Normal [facility] Work Phone: [phone] Urine leukocyte esterase det ection by dipstickon 02-25-2022 Leukocyte esterase Test strip Ql (U) 25 /ul Negative [facility] Work Phone: Urine pHon 02-25-2022 pH (U) 6.0 [pH] 5.0 - 8.0 [facility] Work Phone: Urine protein measurement (m ass/volume)on 02-25-2022 Protein (U) [Mass/Vol] 13.8 mg/dL 0.0-11.8 [facility] Work Phone: [phone] Urine protein/creatinine mas s ratioon 02-25-2022 Protein/Creatinine (U) [Mass ratio] 167 mg/g CRE 0-200 [facility] Work Phone: [phone] Urine sediment bacteria coun t by microscopy (number/high power field)on 02-25-2022 Bacteria LM.HPF (Urine sed) [#/Area] 0 /[HPF] None Seen [facility] Work Phone: [phone] Urine specific gravity measu rementon 02-25-2022 Specific gravity (U) [Rel density] 1.020 1.002-1.03 0 [facility] Work Phone: [phone] Urobilinogen Auto test strip Ql (U)on 02-25-2022 Urobilinogen Ql (U) Normal mg/dl Normal [facility] Work Phone: Basophil percentageon 2021 Chloride [Moles/Vol] 110 mmol/L 98-107 [facility] Work Phone: [phone] Glucose [Mass/Vol] 125 mg/dL 74-106 [facility] Work Phone: [phone] Comment on above: Fasting Glucose resu lt from 100 to 125 mg/dL suggests IMPAIRED HOMEOSTASIS per A.D.A. criteria. Potassium [Moles/Vol] 4.1 mmol/L 3.5-5.1 [facility] Work Phone: [phone] Sodium [Moles/Vol] 139 mmol/L 136-145 [facility] Work Phone: [phone] Erythrocyte sedimentation ra meredith 02-18-2022 ESR (Bld) [Velocity] 12 mm/h 0-20 [facility] Work Phone: [phone] Laboratory - Chemistry and C hemistry - challengeon 02-18-2022 CO2 [Moles/Vol] 24.0 mmol/L 21.0-32.0 [facility] Work Phone: Urea nitrogen/Creatinine [Mass ratio] 11.8 mg/mg 10-20 [facility] Work Phone: No Panel Informationon 02-18 Estimated GFR (MDRD) Amer 48 mL/min >60 [facility] Work Phone: Comment on above: GFR Calc Estimated GFR (MDRD) Non-Af Amer 40 mL/min >60 [facility] Work Phone: Comment on above: Non- GFR Calc Serum or plasma calcium you urement (mass/volume)on 02-18-2022 Calcium [Mass/Vol] 8.7 mg/dL 8.5-10.1 [facility] Work Phone: Serum or plasma creatinine m easurement (mass/volume)on 02-18-2022 Creatinine [Mass/Vol] 1.86 mg/dL 0.70-1.30 [facility] Work Phone: Comment on above: The validity of the calculated GFR & GFRAA in patients over 70 years has not been determined. Clinical correlation is essential. Serum or plasma urea nitroge n measurement (mass/volume)on 02-18-2022 Urea nitrogen [Mass/Vol] 22 mg/dL 7-18 [facility] Work Phone: Serum or plasma uric acid me asurement (mass/volume)on 02-18-2022 Urate [Mass/Vol] 7.2 mg/dL 3.5-7.2 [facility] Work Phone: Comment on above: The drugs N-Acetylcy steine and Metamizole may falsely depress this assay. Thin prep Papanicolaou smear with manual screeningon 02-18-2022 Thin prep Papanicolaou smear with manual screening 5 5-15 [facility] Work Phone: Absolute lymphocyte counton 01-28-2022 Lymphocytes Auto (Unsp spec) [#/Vol] 1.90 10*3/uL 0.83-4.51 [facility] Work Phone: Basophil percentageon 2021 Basophil percentage 0 SEEN /hpf 0-5 [facility] Work Phone: Basophil percentage 2.7 mg/dL 2.5-4.9 [facility] Work Phone: Basophils/100 WBC (Bld) 0.5 % 0-1 [facility] Work Phone: Chloride [Moles/Vol] 110 mmol/L 98-107 [facility] Work Phone: Eosinophils/100 WBC (Bld) 0.4 % 0-5 [facility] Work Phone: Glucose [Mass/Vol] 129 mg/dL 74-106 [facility] Work Phone: [phone] Comment on above: Fasting Glucose resu lt greater than or equal to 126 mg/dL suggests DIABETES MELLITUS per A.D.A. criteria. Neutrophils (Bld) [#/Vol] 8.0 10*3/uL 2.0-7.7 [facility] Work Phone: Neutrophils/100 WBC (Bld) 70.6 % 47-70 [facility] Work Phone: Potassium [Moles/Vol] 3.8 mmol/L 3.5-5.1 [facility] Work Phone: Sodium [Moles/Vol] 141 mmol/L 136-145 [facility] Work Phone: WBC (Bld) [#/Vol] 11.3 10*3/uL 4.4-11.0 [facility] Work Phone: [phone] Bilirubin Test strip Ql (U)o n 01-28-2022 Bilirubin Ql (U) Negative Negative [facility] Work Phone: [phone] Blood erythrocytes count (nu mber/volume)on 01-28-2022 RBC (Bld) [#/Vol] 4.23 10*6/uL 4.6-6.2 [facility] Work Phone: [phone] Blood hemoglobin measurement (mass/volume)on 01-28-2022 Hemoglobin (Bld) [Mass/Vol] 12.6 g/dL 13.0-16.5 [facility] Work Phone: Blood lymphocytes/100 leukoc yteson 01-28-2022 Lymphocytes/100 WBC (Bld) 16.8 % 19-41 [facility] Work Phone: Blood monocytes/100 leukocyt eson 01-28-2022 Monocytes/100 WBC (Bld) 10.0 % 0-10 [facility] Work Phone: Blood platelet mean volumeon 01-28-2022 Platelet mean volume (Bld) [Entitic vol] 9.3 fL 6.2-12.0 [facility] Work Phone: [phone] Determination of erythrocyte mean corpuscular volume (MCV)on 01-28-2022 MCV (RBC) [Entitic vol] 91.3 fL 80-94 [facility] Work Phone: [phone] Hematocrit Auto (Bld) [Volum e fraction]on 01-28-2022 Hematocrit (Bld) [Volume fraction] 38.6 % 40-54 [facility] Work Phone: [phone] Ketones Test strip Ql (U)on 01-28-2022 Ketones Ql (U) Negative Negative [facility] Work Phone: Laboratory - Chemistry and C hemistry - challengeon 01-28-2022 CO2 [Moles/Vol] 25.0 mmol/L 21.0-32.0 [facility] Work Phone: [phone] Urea nitrogen/Creatinine [Mass ratio] 14.7 mg/mg 10-20 [facility] Work Phone: Laboratory - Hematology and Cell countson 01-28-2022 Erythrocyte distribution width (RBC) [Entitic vol] 45.7 fL 35.1-43.9 [facility] Work Phone: [phone] Erythrocyte distribution width (RBC) [Ratio] 13.7 % 11.6-14.6 [facility] Work Phone: [phone] Immature granulocytes/100 WBC (Bld) 1.700 % 0.0-0.9 [facility] Work Phone: Comment on above: IG% - Immature Granu locytes (promyelocytes, myelocytes and metamyelocytes) > 1% indicates that a LEFT SHIFT is Present. MCH (RBC) [Entitic mass] 29.8 pg 27.0-32.0 [facility] Work Phone: Nucleated RBC/100 WBC (Bld) [Ratio] 0 % 0-5 [facility] Work Phone: MCHC Auto (RBC) [Mass/Vol]on 01-28-2022 MCHC (RBC) [Mass/Vol] 32.6 g/dL 32-36 [facility] Work Phone: Mucus LM Ql (Urine sed)on Mucus Ql (Urine sed) 0 SEEN /hpf [facility] Work Phone: Nitrite Test strip Ql (U)on 01-28-2022 Nitrite Ql (U) Negative Negative [facility] Work Phone: No Panel Informationon 01-28 Urine Microalbumin/Creatinine Ratio 77.0 mg/g CRE <30 [facility] Work Phone: Estimated GFR (MDRD) Amer 56 mL/min >60 [facility] Work Phone: Comment on above: GFR Calc Estimated GFR (MDRD) Non-Af Amer 46 mL/min >60 [facility] Work Phone: Comment on above: Non- GFR Calc Platelets bldon 01-28-2022 Platelets (Bld) [#/Vol] 240 10*3/uL 150-450 [facility] Work Phone: Protein Test strip Ql (U)on 01-28-2022 Protein Ql (U) Negative Negative [facility] Work Phone: Serum or plasma albumin you urement (mass/volume)on 01-28-2022 Albumin [Mass/Vol] 3.2 g/dL 3.2-5.0 [facility] Work Phone: Serum or plasma calcium you urement (mass/volume)on 01-28-2022 Calcium [Mass/Vol] 8.4 mg/dL 8.5-10.1 [facility] Work Phone: Serum or plasma creatinine m easurement (mass/volume)on 01-28-2022 Creatinine [Mass/Vol] 1.63 mg/dL 0.70-1.30 [facility] Work Phone: Comment on above: The validity of the calculated GFR & GFRAA in patients over 70 years has not been determined. Clinical correlation is essential. Serum or plasma urea nitroge n measurement (mass/volume)on 01-28-2022 Urea nitrogen [Mass/Vol] 24 mg/dL 7-18 [facility] Work Phone: Squamous epithelial cells de tection in urine sediment by light microscopyon 01-28-2022 Epithelial cells.squamous LM Ql (Urine sed) 0-5 SEEN /hpf 0-5 [facility] Work Phone: Thin prep Papanicolaou smear with manual screeningon 01-28-2022 Thin prep Papanicolaou smear with manual screening 28.5 mg/L NO RANGE EST. [facility] Work Phone: Urine blood detectionon 01-12 RBC Ql (U) Negative Negative [facility] Work Phone: RBC Ql (U) 0 SEEN /hpf 0-5 [facility] Work Phone: Urine clarityon 01-28-2022 Clarity (U) Sl. Cloudy Clear [facility] Work Phone: Urine color determinationon 01-28-2022 Color (U) Yellow Yellow [facility] Work Phone: Urine creatinine measurement (mass/volume)on 01-28-2022 Creatinine (U) [Mass/Vol] 37.00 mg/dL NO RANGE EST. [facility] Work Phone: Urine glucose detectionon Glucose Ql (U) Normal mg/dl Normal [facility] Work Phone: Urine leukocyte esterase det ection by dipstickon 01-28-2022 Leukocyte esterase Test strip Ql (U) Negative Negative [facility] Work Phone: Urine pHon 01-28-2022 pH (U) 7.0 [pH] 5.0 - 8.0 [facility] Work Phone: Urine sediment bacteria coun t by microscopy (number/high power field)on 01-28-2022 Bacteria LM.HPF (Urine sed) [#/Area] 0 /[HPF] None Seen [facility] Work Phone: Urine specific gravity measu rementon 01-28-2022 Specific gravity (U) [Rel density] 1.010 1.002-1.03 0 [facility] Work Phone: Urobilinogen Auto test strip Ql (U)on 01-28-2022 Urobilinogen Ql (U) Normal mg/dl Normal [facility] Work Phone: No Panel Informationon 01-25 [place] Level 0.50 mmol/L 0.60-1.20 [facility] Work Phone: Basophil percentageon 2021 Cholesterol [Mass/Vol] 140 mg/dL <200 [facility] Work Phone: Comment on above: <200 mg/dL Desirable 200-240 mg/dL Borderline >240 mg/dL High Risk Triglyceride [Mass/Vol] 247 mg/dL <199 [facility] Work Phone: Comment on above: The drugs N-Acetylcy steine and Metamizole may falsely depress this assay.Serum Triglycerides Reference Interval Normal <150 mg/dL Borderline high 150 - 199 mg/dL High 200 - 499 mg/dL Very High > or = 500 mg/dL No Panel Informationon 01-04 [place] Level 0.50 mmol/L 0.60-1.20 [facility] Work Phone: Serum or plasma cholesterol in HDL measurement (mass/volume)on 01-04-2022 Cholesterol in HDL [Mass/Vol] 34 mg/dL >40 [facility] Work Phone: Comment on above: The drugs N-Acetylcy steine and Metamizole may falsely depress this assay. Reference Range HDL <40 mg/dL Low HDL Cholesterol HDL >or= 60 mg/dL High HDL Cholesterol Serum or plasma cholesterol in VLDL measurement (mass/volume)on 01-04-2022 Cholesterol in VLDL [Mass/Vol] 49 mg/dL 5-40 [facility] Work Phone: [phone] Serum or plasma low density lipoprotein (LDL) cholesterol measurement (mass/volume)on 01-04-2022 Cholesterol in LDL [Mass/Vol] 57 mg/dL 0-130 [facility] Work Phone: No Panel Informationon 12-07 [place] Level 0.50 mmol/L 0.60-1.20 [facility] Work Phone: [phone] Absolute lymphocyte counton 12-03-2021 Lymphocytes Auto (Unsp spec) [#/Vol] 2.02 10*3/uL 0.83-4.51 [facility] Work Phone: Basophil percentageon 2021 Basophils/100 WBC (Bld) 1.1 % 0-1 [facility] Work Phone: [phone] Chloride [Moles/Vol] 108 mmol/L 98-107 [facility] Work Phone: Eosinophils/100 WBC (Bld) 2.9 % 0-5 [facility] Work Phone: [phone] Glucose [Mass/Vol] 118 mg/dL 74-106 [facility] Work Phone: [phone] Comment on above: Fasting Glucose resu lt from 100 to 125 mg/dL suggests IMPAIRED HOMEOSTASIS per A.D.A. criteria. Neutrophils (Bld) [#/Vol] 4.3 10*3/uL 2.0-7.7 [facility] Work Phone: Neutrophils/100 WBC (Bld) 57.2 % 47-70 [facility] Work Phone: [phone] Potassium [Moles/Vol] 3.9 mmol/L 3.5-5.1 [facility] Work Phone: Sodium [Moles/Vol] 140 mmol/L 136-145 [facility] Work Phone: WBC (Bld) [#/Vol] 7.5 10*3/uL 4.4-11.0 [facility] Work Phone: [phone] Bilirubin Test strip Ql (U)o n 12-03-2021 Bilirubin Ql (U) Negative Negative [facility] Work Phone: [phone] Blood erythrocytes count (nu mber/volume)on 12-03-2021 RBC (Bld) [#/Vol] 4.70 10*6/uL 4.6-6.2 [facility] Work Phone: [phone] Blood hemoglobin measurement (mass/volume)on 12-03-2021 Hemoglobin (Bld) [Mass/Vol] 13.7 g/dL 13.0-16.5 [facility] Work Phone: Blood lymphocytes/100 leukoc yteson 12-03-2021 Lymphocytes/100 WBC (Bld) 27.1 % 19-41 [facility] Work Phone: Blood monocytes/100 leukocyt eson 12-03-2021 Monocytes/100 WBC (Bld) 11.0 % 0-10 [facility] Work Phone: [phone] Blood platelet mean volumeon 12-03-2021 Platelet mean volume (Bld) [Entitic vol] 9.1 fL 6.2-12.0 [facility] Work Phone: [phone] Culture, urineon 12-03-2021 Bacteria identified Cx Nom (U) Culture exhibits no growth. [facility] Work Phone: [phone] Determination of erythrocyte mean corpuscular volume (MCV)on 12-03-2021 MCV (RBC) [Entitic vol] 88.9 fL 80-94 [facility] Work Phone: Hematocrit Auto (Bld) [Volum e fraction]on 12-03-2021 Hematocrit (Bld) [Volume fraction] 41.8 % 40-54 [facility] Work Phone: [phone] Ketones Test strip Ql (U)on 12-03-2021 Ketones Ql (U) Negative Negative [facility] Work Phone: Laboratory - Chemistry and C hemistry - challengeon 12-03-2021 CO2 [Moles/Vol] 27.0 mmol/L 21.0-32.0 [facility] Work Phone: Urea nitrogen/Creatinine [Mass ratio] 9.7 mg/mg 10-20 [facility] Work Phone: Laboratory - Hematology and Cell countson 12-03-2021 Erythrocyte distribution width (RBC) [Entitic vol] 43.4 fL 35.1-43.9 [facility] Work Phone: Erythrocyte distribution width (RBC) [Ratio] 13.2 % 11.6-14.6 [facility] Work Phone: Immature granulocytes/100 WBC (Bld) 0.700 % 0.0-0.9 [facility] Work Phone: Comment on above: IG% - Immature Granu locytes (promyelocytes, myelocytes and metamyelocytes) > 1% indicates that a LEFT SHIFT is Present. MCH (RBC) [Entitic mass] 29.1 pg 27.0-32.0 [facility] Work Phone: Nucleated RBC/100 WBC (Bld) [Ratio] 0 % 0-5 [facility] Work Phone: MCHC Auto (RBC) [Mass/Vol]on 12-03-2021 MCHC (RBC) [Mass/Vol] 32.8 g/dL 32-36 [facility] Work Phone: Nitrite Test strip Ql (U)on 12-03-2021 Nitrite Ql (U) Negative Negative [facility] Work Phone: No Panel Informationon 12-03 Estimated GFR (MDRD) Amer 43 mL/min >60 [facility] Work Phone: Comment on above: GFR Calc Estimated GFR (MDRD) Non-Af Amer 35 mL/min >60 [facility] Work Phone: Comment on above: Non- GFR Calc [place] Level 0.50 mmol/L 0.60-1.20 [facility] Work Phone: Platelets bldon 12-03-2021 Platelets (Bld) [#/Vol] 230 10*3/uL 150-450 [facility] Work Phone: Protein Test strip Ql (U)on 12-03-2021 Protein Ql (U) Negative Negative [facility] Work Phone: Serum or plasma calcium you urement (mass/volume)on 12-03-2021 Calcium [Mass/Vol] 8.9 mg/dL 8.5-10.1 [facility] Work Phone: Serum or plasma creatinine m easurement (mass/volume)on 12-03-2021 Creatinine [Mass/Vol] 2.07 mg/dL 0.70-1.30 [facility] Work Phone: Comment on above: The validity of the calculated GFR & GFRAA in patients over 70 years has not been determined. Clinical correlation is essential. Serum or plasma urea nitroge n measurement (mass/volume)on 12-03-2021 Urea nitrogen [Mass/Vol] 20 mg/dL 7-18 [facility] Work Phone: Thin prep Papanicolaou smear with manual screeningon 12-03-2021 Thin prep Papanicolaou smear with manual screening 5 5-15 [facility] Work Phone: Urine blood detectionon 11-15 RBC Ql (U) Negative Negative [facility] Work Phone: Urine clarityon 12-03-2021 Clarity (U) Clear Clear [facility] Work Phone: Urine color determinationon 12-03-2021 Color (U) Yellow Yellow [facility] Work Phone: Urine glucose detectionon Glucose Ql (U) Normal mg/dl Normal [facility] Work Phone: Urine leukocyte esterase det ection by dipstickon 12-03-2021 Leukocyte esterase Test strip Ql (U) Negative Negative [facility] Work Phone: Urine pHon 12-03-2021 pH (U) 7.0 [pH] [facility] Work Phone: Urine specific gravity measu rementon 12-03-2021 Specific gravity (U) [Rel density] 1.010 [facility] Work Phone: Urobilinogen Auto test strip Ql (U)on 12-03-2021 Urobilinogen Ql (U) Normal mg/dl Normal [facility] Work Phone: [phone] No Panel Informationon 11-09 [place] Level 0.40 mmol/L 0.60-1.20 [facility] Work Phone: [phone] Absolute lymphocyte counton 11-05-2021 Lymphocytes Auto (Unsp spec) [#/Vol] 2.12 10*3/uL 0.83-4.51 [facility] Work Phone: [phone] Basophil percentageon 2020 Chloride [Moles/Vol] 110 mmol/L 98-107 [facility] Work Phone: Eosinophils/100 WBC (Bld) 2.8 % 0-5 [facility] Work Phone: [phone] Glucose [Mass/Vol] 132 mg/dL 74-106 [facility] Work Phone: [phone] Comment on above: Fasting Glucose resu lt greater than or equal to 126 mg/dL suggests DIABETES MELLITUS per A.D.A. criteria.Please note revised GLUCOSE reference range effective 2017. Neutrophils (Bld) [#/Vol] 5.7 10*3/uL 2.0-7.7 [facility] Work Phone: [phone] Potassium [Moles/Vol] 4.0 mmol/L 3.5-5.1 [facility] Work Phone: [phone] Sodium [Moles/Vol] 143 mmol/L 136-145 [facility] Work Phone: [phone] WBC (Bld) [#/Vol] 9.3 10*3/uL 4.4-11.0 [facility] Work Phone: [phone] Basophil percentage 10-25 SEEN /hpf [facility] Work Phone: [phone] Bilirubin Test strip Ql (U)o n 11-05-2021 Bilirubin Ql (U) Negative Negative [facility] Work Phone: [phone] Blood erythrocytes count (nu mber/volume)on 11-05-2021 RBC (Bld) [#/Vol] 4.57 10*6/uL 4.6-6.2 [facility] Work Phone: [phone] Blood hemoglobin measurement (mass/volume)on 11-05-2021 Hemoglobin (Bld) [Mass/Vol] 13.4 g/dL 13.0-16.5 [facility] Work Phone: Blood lymphocytes/100 leukoc yteson 11-05-2021 Lymphocytes/100 WBC (Bld) 22.9 % 19-41 [facility] Work Phone: Blood monocytes/100 leukocyt eson 11-05-2021 Monocytes/100 WBC (Bld) 10.9 % 0-10 [facility] Work Phone: [phone] Blood platelet mean volumeon 11-05-2021 Platelet mean volume (Bld) [Entitic vol] 9.1 fL 6.2-12.0 [facility] Work Phone: [phone] Culture, urineon 11-05-2021 Bacteria identified Cx Nom (U) Streptococcus mitis/ oralis [facility] Work Phone: [phone] Determination of erythrocyte mean corpuscular volume (MCV)on 11-05-2021 MCV (RBC) [Entitic vol] 89.5 fL 80-94 [facility] Work Phone: [phone] Hematocrit Auto (Bld) [Volum e fraction]on 11-05-2021 Hematocrit (Bld) [Volume fraction] 40.9 % 40-54 [facility] Work Phone: [phone] Ketones Test strip Ql (U)on 11-05-2021 Ketones Ql (U) Negative Negative [facility] Work Phone: Laboratory - Chemistry and C hemistry - challengeon 11-05-2021 CO2 [Moles/Vol] 28.0 mmol/L 21.0-32.0 [facility] Work Phone: [phone] Urea nitrogen/Creatinine [Mass ratio] 11.6 mg/mg 10-20 [facility] Work Phone: [phone] Laboratory - Hematology and Cell countson 11-05-2021 Basophils/100 WBC (Unsp spec) 0.9 % 0-1 [facility] Work Phone: [phone] Erythrocyte distribution width (RBC) [Entitic vol] 43.5 fL 35.1-43.9 [facility] Work Phone: [phone] Erythrocyte distribution width (RBC) [Ratio] 13.3 % 11.6-14.6 [facility] Work Phone: [phone] Immature granulocytes/100 WBC (Bld) 0.600 % 0.0-0.9 [facility] Work Phone: [phone] Comment on above: IG% - Immature Granu locytes (promyelocytes, myelocytes and metamyelocytes) > 1% indicates that a LEFT SHIFT is Present. MCH (RBC) [Entitic mass] 29.3 pg 27.0-32.0 [facility] Work Phone: [phone] Neutrophils/100 WBC (Bld) 61.9 % 47-70 [facility] Work Phone: [phone] Nucleated RBC/100 WBC (Bld) [Ratio] 0 % 0-5 [facility] Work Phone: [phone] MCHC Auto (RBC) [Mass/Vol]on 11-05-2021 MCHC (RBC) [Mass/Vol] 32.8 g/dL 32-36 [facility] Work Phone: [phone] Mucus LM Ql (Urine sed)on Mucus Ql (Urine sed) 0 SEEN /hpf [facility] Work Phone: [phone] Nitrite Test strip Ql (U)on 11-05-2021 Nitrite Ql (U) Negative Negative [facility] Work Phone: No Panel Informationon 11-05 Estimated GFR (MDRD) Amer 47 mL/min >60 [facility] Work Phone: Comment on above: GFR Calc Estimated GFR (MDRD) Non-Af Amer 39 mL/min >60 [facility] Work Phone: Comment on above: Non- GFR Calc Platelets bldon 11-05-2021 Platelets (Bld) [#/Vol] 218 10*3/uL 150-450 [facility] Work Phone: Protein Test strip Ql (U)on 11-05-2021 Protein Ql (U) 15 mg/dl Negative [facility] Work Phone: Serum or plasma albumin you urement (mass/volume)on 11-05-2021 Albumin [Mass/Vol] 2.7 g/dL 3.2-5.0 [facility] Work Phone: Serum or plasma calcium you urement (mass/volume)on 11-05-2021 Calcium [Mass/Vol] 8.7 mg/dL 8.5-10.1 [facility] Work Phone: Serum or plasma creatinine m easurement (mass/volume)on 11-05-2021 Creatinine [Mass/Vol] 1.90 mg/dL 0.70-1.30 [facility] Work Phone: Comment on above: The validity of the calculated GFR & GFRAA in patients over 70 years has not been determined. Clinical correlation is essential. Serum or plasma urea nitroge n measurement (mass/volume)on 11-05-2021 Urea nitrogen [Mass/Vol] 22 mg/dL 7-18 [facility] Work Phone: Squamous epithelial cells de tection in urine sediment by light microscopyon 11-05-2021 Epithelial cells.squamous LM Ql (Urine sed) 0-5 SEEN /hpf [facility] Work Phone: Thin prep Papanicolaou smear with manual screeningon 11-05-2021 Thin prep Papanicolaou smear with manual screening 5 5-15 [facility] Work Phone: Urine blood detectionon 10-15 RBC Ql (U) Negative Negative [facility] Work Phone: RBC Ql (U) 0 SEEN /hpf [facility] Work Phone: Urine clarityon 11-05-2021 Clarity (U) Sl. Cloudy Clear [facility] Work Phone: Urine color determinationon 11-05-2021 Color (U) Yellow Yellow [facility] Work Phone: Urine creatinine measurement (mass/volume)on 11-05-2021 Creatinine (U) [Mass/Vol] 169.00 mg/dL NO RANGE EST. [facility] Work Phone: Urine glucose detectionon Glucose Ql (U) Normal mg/dl Normal [facility] Work Phone: Urine leukocyte esterase det ection by dipstickon 11-05-2021 Leukocyte esterase Test strip Ql (U) 100 /ul Negative [facility] Work Phone: Urine pHon 11-05-2021 pH (U) 6.0 [pH] [facility] Work Phone: Urine protein measurement (m ass/volume)on 11-05-2021 Protein (U) [Mass/Vol] 21.0 mg/dL 0.0-11.8 [facility] Work Phone: Urine protein/creatinine mas s ratioon 11-05-2021 Protein/Creatinine (U) [Mass ratio] 124 mg/g CRE 0-200 [facility] Work Phone: [phone] Urine sediment bacteria coun t by microscopy (number/high power field)on 11-05-2021 Bacteria LM.HPF (Urine sed) [#/Area] 0 /[HPF] None Seen [facility] Work Phone: Urine specific gravity measu rementon 11-05-2021 Specific gravity (U) [Rel density] 1.020 [facility] Work Phone: Urobilinogen Auto test strip Ql (U)on 11-05-2021 Urobilinogen Ql (U) Normal mg/dl Normal [facility] Work Phone: CBC Auto Differentialon 10-15 Erythrocyte distribution width (RBC) [Ratio] 14.5 % 11.5 - 14.5 % [place] Hematocrit (Bld) [Volume fraction] 42.1 % 40 - 52 % [place] Hemoglobin (Bld) [Mass/Vol] 13.8 g/dL 13 - 18 g/dL [place] Interpretation and review of laboratory results Abnormal [place] MCH (RBC) [Entitic mass] 28.8 pg 26 - 34 pg [place] MCHC (RBC) [Mass/Vol] 32.7 % 32 - 36 % [place] MCV (RBC) [Entitic vol] 88.1 fL 80 - 98 fL [place] Platelet mean volume (Bld) [Entitic vol] 7.9 fL 7.4 - 10.4 fL [place] Platelets (Bld) [#/Vol] 356 10*3/uL 140 - 440 10*3/uL [place] RBC (Bld) [#/Vol] 4.78 10*6/uL 4.4 - 5.9 10*6/uL [place] WBC (Bld) [#/Vol] 16.4 10*3/uL High 3.6 - 10.7 10*3/uL [place] Test Performed by [facility], [address], [place], [place] [address] [place] Comp Panel with Mg Reflexon 11-04-2020 Calcium [Mass/Vol] 8.9 mg/dL Normal 8.4-10.4 [facility] Comment on above: Performed By: #### H EMOG, CMP3M, CRP2, LDH3, FIBGN, DDI2, APTT, FERR3 #### [facility] [address] [place] [address] ALP [Catalytic activity/Vol] 83 U/L Normal 38-126 [facility] Comment on above: Performed By: #### H EMOG, CMP3M, CRP2, LDH3, FIBGN, DDI2, APTT, FERR3 #### [facility] [address] [place] [address] ALT [Catalytic activity/Vol] 133 U/L High 0-49 [facility] Comment on above: Result Comment: The ALT test is performed by an updated assay method. Please note that the reference intervals have been changed and are now sex specific. Performed By: #### H EMOG, CMP3M, CRP2, LDH3, FIBGN, DDI2, APTT, FERR3 #### [facility] [address] [place] [address] Anion gap [Moles/Vol] 9 Normal [facility] Comment on above: Performed By: #### H EMOG, CMP3M, CRP2, LDH3, FIBGN, DDI2, APTT, FERR3 #### [facility] [address] [place] [address] AST [Catalytic activity/Vol] 39 U/L Normal 15-46 [facility] Comment on above: Performed By: #### H EMOG, CMP3M, CRP2, LDH3, FIBGN, DDI2, APTT, FERR3 #### [facility] [address] [place] [address] Bilirubin [Mass/Vol] 0.6 mg/dL Normal 0.2-1.3 [facility] Comment on above: Performed By: #### H EMOG, CMP3M, CRP2, LDH3, FIBGN, DDI2, APTT, FERR3 #### [facility] [address] [place] [address] CO2 [Moles/Vol] 20 mmol/L Low 22-30 [facility] Comment on above: Performed By: #### H EMOG, CMP3M, CRP2, LDH3, FIBGN, DDI2, APTT, FERR3 #### [facility] [address] [place] [address] Glucose [Mass/Vol] 140 mg/dL High 70-100 [facility] Comment on above: Performed By: #### H EMOG, CMP3M, CRP2, LDH3, FIBGN, DDI2, APTT, FERR3 #### [facility] [address] [place] [address] Protein [Mass/Vol] 6.1 g/dL Low 6.3-8.2 [facility] Comment on above: Performed By: #### H EMOG, CMP3M, CRP2, LDH3, FIBGN, DDI2, APTT, FERR3 #### [facility] [address] [place] [address] Urea nitrogen [Mass/Vol] 41 mg/dL High 7-20 [facility] Comment on above: Performed By: #### H EMOG, CMP3M, CRP2, LDH3, FIBGN, DDI2, APTT, FERR3 #### [facility] [address] [place] [address] Creatinine [Mass/Vol] 1.84 mg/dL High 0.52-1.25 [facility] Comment on above: Performed By: #### H EMOG, CMP3M, CRP2, LDH3, FIBGN, DDI2, APTT, FERR3 #### [facility] [address] [place] [address] GFR/1.73 sq M predicted among blacks MDRD (S/P/Bld) [Vol rate/Area] 46.0 mL/min/{1.73_m2} Abnormal >60 [facility] Comment on above: Performed By: #### H EMOG, CMP3M, CRP2, LDH3, FIBGN, DDI2, APTT, FERR3 #### [facility] [address] [place] [address] GFR/1.73 sq M predicted among non-blacks MDRD (S/P/Bld) [Vol rate/Area] 39.7 mL/min/{1.73_m2} Abnormal >60 [facility] Comment on above: Result Comment: KDIG [...] CRP2, LDH3, FIBGN, DDI2, APTT, FERR3 #### [facility] [address] [place] [address] Albumin [Mass/Vol] 3.4 g/dL Low 3.5-5.0 [facility] Comment on above: Performed By: #### H EMOG, CMP3M, CRP2, LDH3, FIBGN, DDI2, APTT, FERR3 #### [facility] [address] [place] [address] Chloride [Moles/Vol] 106 mmol/L Normal 98-107 [facility] Comment on above: Performed By: #### H EMOG, CMP3M, CRP2, LDH3, FIBGN, DDI2, APTT, FERR3 #### [facility] [address] [place] [address] Potassium [Moles/Vol] 4.3 mmol/L Normal 3.5-5.1 [facility] Comment on above: Performed By: #### H EMOG, CMP3M, CRP2, LDH3, FIBGN, DDI2, APTT, FERR3 #### [facility] [address] [facility] [place] [address] Sodium [Moles/Vol] 134 mmol/L Low 135-145 [facility] Comment on above: Performed By: #### H EMOG, CMP3M, CRP2, LDH3, FIBGN, DDI2, APTT, FERR3 #### [facility] [address] [facility] [place] [address] Comprehensive Metabolic Pane l w/ Reflex to MGon 11-04-2020 Albumin [Mass/Vol] 3.4 g/dL Low 3.5 - 5 g/dL [place] ALP [Catalytic activity/Vol] 83 U/L 38 - 126 U/L [place] ALT [Catalytic activity/Vol] 133 U/L High 0 - 49 U/L [place] Comment on above: The ALT test is perf ormed by an updated assay method. Please note that the reference intervals have been changed and are now sex specific. Anion gap [Moles/Vol] 9 mmol/L [place] AST [Catalytic activity/Vol] 39 U/L 15 - 46 U/L [place] Bilirubin Ql (U) 0.6 mg/dL 0.2 - 1.3 mg/dL [place] Calcium [Mass/Vol] 8.9 mg/dL 8.4 - 10. 4 mg/dL [place] Chloride [Moles/Vol] 106 mmol/L 98 - 10 7 mmol/L [place] CO2 [Moles/Vol] 20 mmol/L Low 22 - 30 mmol/L [place] Creatinine [Mass/Vol] 1.84 mg/dL High 0.52 - 1.25 mg/dL [place] EGFR IF NonAfrican Armenian 39.7 mL/min Abnormal >60 [place] Comment on above: KDIGO guidelines pro [...] (S/P/Bld) [Vol rate/Area] 46.0 mL/min/{1.73_m2} Abnormal >60 [place] Glucose [Mass/Vol] 140 mg/dL High 70 - 100 mg/dL [place] Interpretation and review of laboratory results Abnormal [place] Potassium [Moles/Vol] 4.3 mmol/L 3.5 - 5.1 mmol/L [place] Protein [Mass/Vol] 6.1 g/dL Low 6.3 - 8.2 g/dL [place] Sodium [Moles/Vol] 134 mmol/L Low 135 - 145 mmol/L [place] Urea nitrogen [Mass/Vol] 41 mg/dL High 7 - 20 mg/dL [place] Test Performed by [facility], [address] [place] [address] [place] Hemogram w/ Autodiffon 11-04 Erythrocyte distribution width (RBC) [Ratio] 14.5 % Normal 11.5-14.5 [facility] Comment on above: Performed By: #### H EMOG, CMP3M, CRP2, LDH3, FIBGN, DDI2, APTT, FERR3 #### [facility] [address] [place] [address] Hematocrit (Bld) [Volume fraction] 42.1 % Normal 40.0-52.0 [facility] Comment on above: Performed By: #### H EMOG, CMP3M, CRP2, LDH3, FIBGN, DDI2, APTT, FERR3 #### [facility] [address] [place] [address] Hemoglobin (Bld) [Mass/Vol] 13.8 g/dL Normal 13.0-18.0 [facility] Comment on above: Performed By: #### H EMOG, CMP3M, CRP2, LDH3, FIBGN, DDI2, APTT, FERR3 #### [facility] [address] [place] [address] MCH (RBC) [Entitic mass] 28.8 pg Normal 26.0-34.0 [facility] Comment on above: Performed By: #### H EMOG, CMP3M, CRP2, LDH3, FIBGN, DDI2, APTT, FERR3 #### [facility] [address] [place] [address] MCHC (RBC) [Mass/Vol] 32.7 % Normal 32.0-36.0 [facility] Comment on above: Performed By: #### H EMOG, CMP3M, CRP2, LDH3, FIBGN, DDI2, APTT, FERR3 #### [facility] [address] [place] [address] MCV (RBC) [Entitic vol] 88.1 fL Normal 80.0-98.0 [facility] Comment on above: Performed By: #### H EMOG, CMP3M, CRP2, LDH3, FIBGN, DDI2, APTT, FERR3 #### [facility] [address] [place] [address] Platelet mean volume (Bld) [Entitic vol] 7.9 fL Normal 7.4-10.4 [facility] Comment on above: Performed By: #### H EMOG, CMP3M, CRP2, LDH3, FIBGN, DDI2, APTT, FERR3 #### [facility] [address] [place] [address] Platelets (Bld) [#/Vol] 356 10*3/uL Normal 140-440 [facility] Comment on above: Performed By: #### H EMOG, CMP3M, CRP2, LDH3, FIBGN, DDI2, APTT, FERR3 #### [facility] [address] [place] [address] RBC (Bld) [#/Vol] 4.78 10*6/uL Normal 4.40-5.90 [facility] Comment on above: Performed By: #### H EMOG, CMP3M, CRP2, LDH3, FIBGN, DDI2, APTT, FERR3 #### [facility] [address] [place] [address] WBC (Bld) [#/Vol] 16.4 10*3/uL High 3.6-10.7 [facility] Comment on above: Performed By: #### H EMOG, CMP3M, CRP2, LDH3, FIBGN, DDI2, APTT, FERR3 #### [facility] [address] [place] [address] Manual Diffon 11-04-2020 Abs Baso Cnt 0.0 10*3/uL Normal 0.0-0.2 [facility] Comment on above: Performed By: #### H EMOG, CMP3M, CRP2, LDH3, FIBGN, DDI2, APTT, FERR3 #### [facility] [address] [place] [address] Abs Eosin Cnt 0.0 10*3/uL Normal 0.0-0.5 [facility] Comment on above: Performed By: #### H EMOG, CMP3M, CRP2, LDH3, FIBGN, DDI2, APTT, FERR3 #### [facility] [address] [place] [address] Abs Lymph Cnt 1.0 10*3/uL Low 1.1-4.5 [facility] Comment on above: Performed By: #### H EMOG, CMP3M, CRP2, LDH3, FIBGN, DDI2, APTT, FERR3 #### [facility] [address] [place] [address] Abs Monocyte Cnt 1.3 10*3/uL High 0.2-1.1 [facility] Comment on above: Performed By: #### H EMOG, CMP3M, CRP2, LDH3, FIBGN, DDI2, APTT, FERR3 #### [facility] [address] [place] [address] Abs Neutrophile Cnt 13.1 10*3/uL High 2.2-8.2 [facility] Comment on above: Performed By: #### H EMOG, CMP3M, CRP2, LDH3, FIBGN, DDI2, APTT, FERR3 #### [facility] [address] [place] [facility] Anisocytosis Ql (Bld) Slight Normal [facility] Comment on above: Performed By: #### H EMOG, CMP3M, CRP2, LDH3, FIBGN, DDI2, APTT, FERR3 #### [facility] [address] [place] [address] Bands 2 % Normal 0-3 [facility] Comment on above: Performed By: #### H EMOG, CMP3M, CRP2, LDH3, FIBGN, DDI2, APTT, FERR3 #### [facility] [address] [place] [address] Basophils 0 % Normal 0-2 [facility] Comment on above: Performed By: #### H EMOG, CMP3M, CRP2, LDH3, FIBGN, DDI2, APTT, FERR3 #### [facility] [address] [place] [address] Danya Cells Slight Normal [facility] Comment on above: Performed By: #### H EMOG, CMP3M, CRP2, LDH3, FIBGN, DDI2, APTT, FERR3 #### [facility] [address] [place] [address] Cells counted 100 Normal [facility] Comment on above: Performed By: #### H EMOG, CMP3M, CRP2, LDH3, FIBGN, DDI2, APTT, FERR3 #### [facility] [address] [place] [address] Eosinophils 0 % Low 1-6 [facility] Comment on above: Performed By: #### H EMOG, CMP3M, CRP2, LDH3, FIBGN, DDI2, APTT, FERR3 #### [facility] [address] [place] [address] Lymphocytes 6 % Low 20-40 [facility] Comment on above: Performed By: #### H EMOG, CMP3M, CRP2, LDH3, FIBGN, DDI2, APTT, FERR3 #### [facility] [address] [place] [address] Metamyelocytes 5 % Abnormal <1 [facility] Comment on above: Performed By: #### H EMOG, CMP3M, CRP2, LDH3, FIBGN, DDI2, APTT, FERR3 #### [facility] [address] [place] [address] Monocytes 8 % Normal 2-10 [facility] Comment on above: Performed By: #### H EMOG, CMP3M, CRP2, LDH3, FIBGN, DDI2, APTT, FERR3 #### [facility] [address] [place] [address] Myelocytes 1 % Abnormal <1 [facility] Comment on above: Performed By: #### H EMOG, CMP3M, CRP2, LDH3, FIBGN, DDI2, APTT, FERR3 #### [facility] [address] [place] [address] Poikilocytosis Slight Normal [facility] Comment on above: Performed By: #### H EMOG, CMP3M, CRP2, LDH3, FIBGN, DDI2, APTT, FERR3 #### [facility] [address] [place] [address] RBC morphology finding Nom (Bld) ABNORMAL Normal [facility] Comment on above: Performed By: #### H EMOG, CMP3M, CRP2, LDH3, FIBGN, DDI2, APTT, FERR3 #### [facility] [address] [place] [address] Seg Neutrophils 78 % Normal 40-80 [facility] Comment on above: Performed By: #### H EMOG, CMP3M, CRP2, LDH3, FIBGN, DDI2, APTT, FERR3 #### [facility] [address] [place] [address] Manual Differentialon 2019 Absolute Baso # 0.0 10*3/uL 0 - 0.2 10*3/uL [place] Absolute Eos # 0.0 10*3/uL 0 - 0.5 10*3/uL [place] Absolute Lymph # 1.0 10*3/uL Low 1.1 - 4.5 10*3/uL [facility], [place] Absolute [place] # 1.3 10*3/uL High 0.2 - 1.1 10*3/uL [place] Absolute Neut # 13.1 10*3/uL High 2.2 - 8.2 10*3/uL [facility], [place] Anisocytosis Ql (Bld) Slight [facility], [place] Bands 2 % 0 - 3 % [facility], [place] Basophils 0 % 0 - 2 % [place] Cells Slight [place] Eosinophils 0 % Low 1 - 6 % [place] Interpretation and review of laboratory results Abnormal [place] Lymphocytes 6 % Low 20 - 40 % [place] Metamyelocytes 5 % Abnormal <1 [place] Monocytes 8 % 2 - 10 % [place] Myelocytes 1 % Abnormal <1 [place] Poikilocytes Slight [place] RBC morphology finding Nom (Bld) ABNORMAL [place] Seg Neutrophils 78 % 40 - 80 % [place] TOTAL CELLS COUNTED 100 [place] Test Performed by [facility], [address] [place], [place] [address] [place] Add On Lab Teston 11-03-2020 Sodium [Moles/Vol] Accepted [place] Comment on above: Specimen available & acceptable for analysis. Test Performed by [facility], [address] [place] [address] [place] Add on test from HISon 11-03 Add on test from HIS Accepted Normal [facility] Comment on above: Result Comment: Spec imen available & acceptable for analysis. Performed By: #### H EMOG, CMP3M, CRP2, LDH3, FIBGN, DDI2, APTT, FERR3 #### [facility] [address] [place] [address] CBC Auto Differentialon 10-15 Erythrocyte distribution width (RBC) [Ratio] 14.3 % 11.5 - 14.5 % [place] Hematocrit (Bld) [Volume fraction] 39.0 % Low 40 - 52 % [place] Hemoglobin (Bld) [Mass/Vol] 12.8 g/dL Low 13 - 18 g/dL [place] Interpretation and review of laboratory results Abnormal [place] MCH (RBC) [Entitic mass] 28.7 pg 26 - 34 pg [place] MCHC (RBC) [Mass/Vol] 32.8 % 32 - 36 % [place] MCV (RBC) [Entitic vol] 87.6 fL 80 - 98 fL [place] Platelet mean volume (Bld) [Entitic vol] 7.5 fL 7.4 - 10.4 fL [place] Platelets (Bld) [#/Vol] 332 10*3/uL 140 - 440 10*3/uL [place] RBC (Bld) [#/Vol] 4.45 10*6/uL 4.4 - 5.9 10*6/uL [place] WBC (Bld) [#/Vol] 15.6 10*3/uL High 3.6 - 10.7 10*3/uL [place] Test Performed by [facility], [address] [place], [place] [address] [place] [address] CR Chest PA/LATon 11-03-2020 CR Chest PA/LAT Patient Name: REGGIE WILOSN Diagnostic Radiology ACCESSION EXAM DATE/TIME PROCEDURE ORDERING PROVIDER [id number] 11/03/2020 10:20 EST CR Chest PA and LAT MD EMILY, FARRUKH MCCORMICK CPT code 46608 Reason For Exam (CR Chest PA and [...] Transcribed Date and Time: 11/03/2020 10:59 Normal [facility] Comp Panel with Mg Reflexon 11-03-2020 Calcium [Mass/Vol] 9.0 mg/dL Normal 8.4-10.4 [facility] Comment on above: Performed By: #### H EMOG, CMP3M, CRP2, LDH3, FIBGN, DDI2, APTT, FERR3 #### [facility] [address] [place] [address] Anion gap [Moles/Vol] 5 Normal [facility] Comment on above: Performed By: #### H EMOG, CMP3M, CRP2, LDH3, FIBGN, DDI2, APTT, FERR3 #### [facility] [address] [place] [address] Bilirubin [Mass/Vol] 0.7 mg/dL Normal 0.2-1.3 [facility] Comment on above: Performed By: #### H EMOG, CMP3M, CRP2, LDH3, FIBGN, DDI2, APTT, FERR3 #### [facility] [address] [place] [address] Creatinine [Mass/Vol] 2.08 mg/dL High 0.52-1.25 [facility] Comment on above: Performed By: #### H EMOG, CMP3M, CRP2, LDH3, FIBGN, DDI2, APTT, FERR3 #### [facility] [address] [place] [address] GFR/1.73 sq M predicted among blacks MDRD (S/P/Bld) [Vol rate/Area] 39.6 mL/min/{1.73_m2} Abnormal >60 [facility] Comment on above: Performed By: #### H EMOG, CMP3M, CRP2, LDH3, FIBGN, DDI2, APTT, FERR3 #### [facility] [address] [place] [address] GFR/1.73 sq M predicted among non-blacks MDRD (S/P/Bld) [Vol rate/Area] 34.2 mL/min/{1.73_m2} Abnormal >60 [facility] Comment on above: Result Comment: KDIG [...] CRP2, LDH3, FIBGN, DDI2, APTT, FERR3 #### [facility] [address] [place] [address] Albumin [Mass/Vol] 3.4 g/dL Low 3.5-5.0 [facility] Comment on above: Performed By: #### H EMOG, CMP3M, CRP2, LDH3, FIBGN, DDI2, APTT, FERR3 #### [facility] [address] [place] [address] Chloride [Moles/Vol] 107 mmol/L Normal 98-107 [facility] Comment on above: Performed By: #### H EMOG, CMP3M, CRP2, LDH3, FIBGN, DDI2, APTT, FERR3 #### [facility] [address] [place] [address] Potassium [Moles/Vol] 3.8 mmol/L Normal 3.5-5.1 [facility] Comment on above: Performed By: #### H EMOG, CMP3M, CRP2, LDH3, FIBGN, DDI2, APTT, FERR3 #### [facility] [address] [place] [address] Sodium [Moles/Vol] 134 mmol/L Low 135-145 [facility] Comment on above: Performed By: #### H EMOG, CMP3M, CRP2, LDH3, FIBGN, DDI2, APTT, FERR3 #### [facility] [address] [place] [address] ALP [Catalytic activity/Vol] 83 U/L Normal 38-126 [place] Comment on above: Performed By: #### H EMOG, CMP3M, CRP2, LDH3, FIBGN, DDI2, APTT, FERR3 #### [facility] [address] [place] [address] ALT [Catalytic activity/Vol] 175 U/L High 0-49 [place] Comment on above: Result Comment: The ALT test is performed by an updated assay method. Please note that the reference intervals have been changed and are now sex specific. Performed By: #### H EMOG, CMP3M, CRP2, LDH3, FIBGN, DDI2, APTT, FERR3 #### [facility] [address] [place] [address] The ALT test is perf ormed by an updated assay method. Please note that the reference intervals have been changed and are now sex specific. AST [Catalytic activity/Vol] 63 U/L High 15-46 [place] Comment on above: Performed By: #### H EMOG, CMP3M, CRP2, LDH3, FIBGN, DDI2, APTT, FERR3 #### [facility] [address] [place] [address] CO2 [Moles/Vol] 21 mmol/L Low 22-30 [place] Comment on above: Performed By: #### H EMOG, CMP3M, CRP2, LDH3, FIBGN, DDI2, APTT, FERR3 #### [facility] [address] [place] [address] Glucose [Mass/Vol] 139 mg/dL High 70-100 [place] Comment on above: Performed By: #### H EMOG, CMP3M, CRP2, LDH3, FIBGN, DDI2, APTT, FERR3 #### [facility] [address] [place] [address] Protein [Mass/Vol] 5.9 g/dL Low 6.3-8.2 [place] Comment on above: Performed By: #### H EMOG, CMP3M, CRP2, LDH3, FIBGN, DDI2, APTT, FERR3 #### [facility] [address] [place] [address] Urea nitrogen [Mass/Vol] 43 mg/dL High 7-20 [place] Comment on above: Performed By: #### H EMOG, CMP3M, CRP2, LDH3, FIBGN, DDI2, APTT, FERR3 #### [facility] [address] [place] [address] Comprehensive Metabolic Pane l w/ Reflex to MGon 11-03-2020 Albumin [Mass/Vol] 3.4 g/dL Low 3.5 - 5 g/dL [place] Anion gap [Moles/Vol] 5 mmol/L [place] Bilirubin Ql (U) 0.7 mg/dL 0.2 - 1.3 mg/dL [place] Calcium [Mass/Vol] 9.0 mg/dL 8.4 - 10. 4 mg/dL [place] Chloride [Moles/Vol] 107 mmol/L 98 - 10 7 mmol/L [place] Creatinine [Mass/Vol] 2.08 mg/dL High 0.52 - 1.25 mg/dL [place] EGFR IF NonAfrican [place] 34.2 mL/min Abnormal >60 [place] Comment on above: KDIGO guidelines pro [...] (S/P/Bld) [Vol rate/Area] 39.6 mL/min/{1.73_m2} Abnormal >60 [place] Interpretation and review of laboratory results Abnormal [place] Potassium [Moles/Vol] 3.8 mmol/L 3.5 - 5.1 mmol/L [place] Sodium [Moles/Vol] 134 mmol/L Low 135 - 145 mmol/L [place] Test Performed by [facility], [address] [place] [address] [place] Hemogram w/ Autodiffon 11-03 Erythrocyte distribution width (RBC) [Ratio] 14.3 % Normal 11.5-14.5 [facility] Comment on above: Performed By: #### H EMOG, CMP3M, CRP2, LDH3, FIBGN, DDI2, APTT, FERR3 #### [facility] [address] [place] [address] Hematocrit (Bld) [Volume fraction] 39.0 % Low 40.0-52.0 [facility] Comment on above: Performed By: #### H EMOG, CMP3M, CRP2, LDH3, FIBGN, DDI2, APTT, FERR3 #### [facility] [address] [place] [address] Hemoglobin (Bld) [Mass/Vol] 12.8 g/dL Low 13.0-18.0 [facility] Comment on above: Performed By: #### H EMOG, CMP3M, CRP2, LDH3, FIBGN, DDI2, APTT, FERR3 #### [facility] [address] [place] [address] MCH (RBC) [Entitic mass] 28.7 pg Normal 26.0-34.0 [facility] Comment on above: Performed By: #### H EMOG, CMP3M, CRP2, LDH3, FIBGN, DDI2, APTT, FERR3 #### [facility] [address] [place] [address] MCHC (RBC) [Mass/Vol] 32.8 % Normal 32.0-36.0 [facility] Comment on above: Performed By: #### H EMOG, CMP3M, CRP2, LDH3, FIBGN, DDI2, APTT, FERR3 #### [facility] [address] [place] [id number] MCV (RBC) [Entitic vol] 87.6 fL Normal 80.0-98.0 S [facility] Comment on above: Performed By: #### H EMOG, CMP3M, CRP2, LDH3, FIBGN, DDI2, APTT, FERR3 #### [facility] [address] [place] [id number] Platelet mean volume (Bld) [Entitic vol] 7.5 fL Normal 7.4-10.4 [facility] Comment on above: Performed By: #### H EMOG, CMP3M, CRP2, LDH3, FIBGN, DDI2, APTT, FERR3 #### [facility] [address] [place] [id number] Platelets (Bld) [#/Vol] 332 10*3/uL Normal 140-440 [facility] Comment on above: Performed By: #### H EMOG, CMP3M, CRP2, LDH3, FIBGN, DDI2, APTT, FERR3 #### [facility] [address] [place] [id number] RBC (Bld) [#/Vol] 4.45 10*6/uL Normal 4.40-5.90 [facility] Comment on above: Performed By: #### H EMOG, CMP3M, CRP2, LDH3, FIBGN, DDI2, APTT, FERR3 #### [facility] [address] [place] [id number] WBC (Bld) [#/Vol] 15.6 10*3/uL High 3.6-10.7 [facility] Comment on above: Performed By: #### H EMOG, CMP3M, CRP2, LDH3, FIBGN, DDI2, APTT, FERR3 #### [facility] [address] [place] [address] Manual Diffon 11-03-2020 Abs Lymph Cnt 2.0 10*3/uL Normal 1.1-4.5 [facility] Comment on above: Performed By: #### H EMOG, CMP3M, CRP2, LDH3, FIBGN, DDI2, APTT, FERR3 #### [facility] [address] [place] [address] Abs Monocyte Cnt 2.2 10*3/uL High 0.2-1.1 [facility] Comment on above: Performed By: #### H EMOG, CMP3M, CRP2, LDH3, FIBGN, DDI2, APTT, FERR3 #### [facility] [address] [place] [address] Abs Neutrophile Cnt 11.4 10*3/uL High 2.2-8.2 [facility] Comment on above: Performed By: #### H EMOG, CMP3M, CRP2, LDH3, FIBGN, DDI2, APTT, FERR3 #### [facility] [address] [place] [address] Anisocytosis Ql (Bld) Slight Normal [facility] Comment on above: Performed By: #### H EMOG, CMP3M, CRP2, LDH3, FIBGN, DDI2, APTT, FERR3 #### [facility] [address] [place] [address] Bands 4 % High 0-3 [facility] Comment on above: Performed By: #### H EMOG, CMP3M, CRP2, LDH3, FIBGN, DDI2, APTT, FERR3 #### [facility] [address] [place] [address] Danya Cells Slight Normal [facility] Comment on above: Performed By: #### H EMOG, CMP3M, CRP2, LDH3, FIBGN, DDI2, APTT, FERR3 #### [facility] [address] [place] [address] Lymphocytes 13 % Low 20-40 [facility] Comment on above: Performed By: #### H EMOG, CMP3M, CRP2, LDH3, FIBGN, DDI2, APTT, FERR3 #### [facility] [address] [place] [address] Monocytes 14 % High 2-10 [facility] Comment on above: Performed By: #### H EMOG, CMP3M, CRP2, LDH3, FIBGN, DDI2, APTT, FERR3 #### [facility] [address] [place] [place] [address] NRBC 1 /100{WBCs} High -1-0 [facility] Comment on above: Result Comment: [place] orn (<60 days) 1-10 Adult <1 Performed By: #### H EMOG, CMP3M, CRP2, LDH3, FIBGN, DDI2, APTT, FERR3 #### [facility] [address] [place] [address] RBC morphology finding Nom (Bld) ABNORMAL Normal [facility] Comment on above: Performed By: #### H EMOG, CMP3M, CRP2, LDH3, FIBGN, DDI2, APTT, FERR3 #### [facility] [address] [place] [address] Seg Neutrophils 69 % Normal 40-80 [facility] Comment on above: Performed By: #### H EMOG, CMP3M, CRP2, LDH3, FIBGN, DDI2, APTT, FERR3 #### [facility] [address] [place] [place] [address] Tear Drop Forms Slight Normal [facility] Comment on above: Performed By: #### H EMOG, CMP3M, CRP2, LDH3, FIBGN, DDI2, APTT, FERR3 #### [facility] [address] [place] [place] [address] Abs Baso Cnt 0.0 10*3/uL Normal 0.0-0.2 [facility] Comment on above: Performed By: #### H EMOG, CMP3M, CRP2, LDH3, FIBGN, DDI2, APTT, FERR3 #### [facility] [address] [place] [address] Abs Eosin Cnt 0.0 10*3/uL Normal 0.0-0.5 [facility] Comment on above: Performed By: #### H EMOG, CMP3M, CRP2, LDH3, FIBGN, DDI2, APTT, FERR3 #### [facility] [address] [place] [address] Basophils 0 % Normal 0-2 [facility] Comment on above: Performed By: #### H EMOG, CMP3M, CRP2, LDH3, FIBGN, DDI2, APTT, FERR3 #### [facility] [address] [place] [address] Cells counted 100 Normal [facility] Comment on above: Performed By: #### H EMOG, CMP3M, CRP2, LDH3, FIBGN, DDI2, APTT, FERR3 #### [facility] [address] [place] [address] Eosinophils 0 % Low 1-6 [facility] Comment on above: Performed By: #### H EMOG, CMP3M, CRP2, LDH3, FIBGN, DDI2, APTT, FERR3 #### [facility] [address] [place] [address] Manual Differentialon 2019 Absolute Baso # 0.0 10*3/uL 0 - 0.2 10*3/uL [place] Absolute Eos # 0.0 10*3/uL 0 - 0.5 10*3/uL [place] Absolute Lymph # 2.0 10*3/uL 1.1 - 4.5 10*3/uL [place] Absolute [place] # 2.2 10*3/uL High 0.2 - 1.1 10*3/uL [place] Absolute Neut # 11.4 10*3/uL High 2.2 - 8.2 10*3/uL [place] Anisocytosis Ql (Bld) Slight [place] Bands 4 % High 0 - 3 % [place] Basophils 0 % 0 - 2 % [facility], [place] Cells Slight [place] Eosinophils 0 % Low 1 - 6 % [place] Interpretation and review of laboratory results Abnormal [place] Lymphocytes 13 % Low 20 - 40 % [place] Monocytes 14 % High 2 - 10 % [place] nRBC 1 /100{WBCs} High -1 - 0 /100{WBCs} [place] Comment on above: [place] (<60 days) 1 -10 Adult <1 RBC morphology finding Nom (Bld) ABNORMAL [place] Seg Neutrophils 69 % 40 - 80 % [place] Tear Drop Cells Slight [place] TOTAL CELLS COUNTED 100 [place] Test Performed by [facility], [address], [place] [address] [place] Procalcitoninon 11-03-2020 Procalcitonin < 0.10 Normal <0.10 [facility] Comment on above: Performed By: #### H EMOG, CMP3M, CRP2, LDH3, FIBGN, DDI2, APTT, FERR3 #### [facility] [address] [place] [address] Procalcitonin <0.10 <0.10 ng/mL [place] Sodium [Moles/Vol] See Below [place] Comment on above: PCT <0.50 = Low risk of severe sepsis and/or septic shock. PCT >2.00 = High risk of severe sepsis and/or septic shock. Test Performed by [facility], [address] [place] [address] [place] Interpretation See Below Normal [facility] Comment on above: Result Comment: PCT <0.50 = Low risk of severe sepsis and/or septic shock. PCT >2.00 = High risk of severe sepsis and/or septic shock. Performed By: #### H EMOG, CMP3M, CRP2, LDH3, FIBGN, DDI2, APTT, FERR3 #### [facility] [address] [place] [address] XR CHEST (2 VW)on 11-03-2020 Michel, [facility] Incoming [facility] - 11/03/2020 10:59 AM EST Patient Name: REGGIE LEÓN Diagnostic Radiology ACCESSION EXAM DATE/TIME PROCEDURE ORDERING PROVIDER [id number] 11/03/2020 10:20 EST CR Chest PA & LAT MD EMILY, FARRUKH MCCORMICK CPT code 41808 Reason For Exam (CR Chest PA & [...] JEFFREY Transcribed Date and Time: 11/03/2020 10:59 [place] Patient Name: REGGIE WILSON Diagnostic Radiology ACCESSION EXAM DATE/TIME PROCEDURE ORDERING PROVIDER [id number] 11/03/2020 10:20 EST CR Chest PA & LAT MD DIAZ IMOLA KINGA CPT code 53164 Reason For Exam (CR Chest PA & [...] JEFFREY Transcribed Date and Time: 11/03/2020 10:59 [place] APTTon 11-02-2020 aPTT Coag (Bld) [Time] 30.4 s Normal 20.0-30.5 [facility] Comment on above: Result Comment: NOTE : The therapeutic time for Heparin anticoagulation, based on Xa activity inhibition, is an APTT of 46-80 seconds. Performed By: #### H EMOG, CMP3M, CRP2, LDH3, FIBGN, DDI2, APTT, FERR3 #### [facility] [address] [place] [address] aPTT Coag (Bld) [Time] 30.4 s 20 - 30.5 s [place] Comment on above: NOTE: The therapeuti c time for Heparin anticoagulation, based on Xa activity inhibition, is an APTT of 46-80 seconds. C-Reactive Proteinon 020 CRP [Mass/Vol] 10.2 mg/L High 0.0-6.0 [facility] Comment on above: Result Comment: . Performed By: #### H EMOG, CMP3M, CRP2, LDH3, FIBGN, DDI2, APTT, FERR3 #### [facility] [address] [place] [address] CRP [Mass/Vol] 10.2 mg/L High 0 - 6 mg/L [place] Comment on above: . CBCon 11-02-2020 Erythrocyte distribution width (RBC) [Ratio] 14.2 % 11.5 - 14.5 % [place] Hematocrit (Bld) [Volume fraction] 39.5 % Low 40 - 52 % [place] Hemoglobin (Bld) [Mass/Vol] 13.2 g/dL 13 - 18 g/dL [place] Interpretation and review of laboratory results Abnormal [place] MCH (RBC) [Entitic mass] 29.4 pg 26 - 34 pg [place] MCHC (RBC) [Mass/Vol] 33.5 % 32 - 36 % [place] MCV (RBC) [Entitic vol] 87.8 fL 80 - 98 fL [place] Platelet mean volume (Bld) [Entitic vol] 7.6 fL 7.4 - 10.4 fL [place] Platelets (Bld) [#/Vol] 340 10*3/uL 140 - 440 10*3/uL [place] RBC (Bld) [#/Vol] 4.49 10*6/uL 4.4 - 5.9 10*6/uL [place] WBC (Bld) [#/Vol] 13.0 10*3/uL High 3.6 - 10.7 10*3/uL [place] Test Performed by [facility], [address] [place] [address] [place] Comp Panel with Mg Reflexon 11-02-2020 ALT [Catalytic activity/Vol] 198 U/L High 0-49 [facility] Comment on above: Result Comment: The ALT test is performed by an updated assay method. Please note that the reference intervals have been changed and are now sex specific. Performed By: #### H EMOG, CMP3M, CRP2, LDH3, FIBGN, DDI2, APTT, FERR3 #### [facility] [address] [place] [address] Calcium [Mass/Vol] 8.8 mg/dL Normal 8.4-10.4 [facility] Comment on above: Performed By: #### H EMOG, CMP3M, CRP2, LDH3, FIBGN, DDI2, APTT, FERR3 #### [facility] [address] [place] [address] Glucose [Mass/Vol] 135 mg/dL High 70-100 [facility] Comment on above: Performed By: #### H EMOG, CMP3M, CRP2, LDH3, FIBGN, DDI2, APTT, FERR3 #### [facility] [address] [place] [address] ALP [Catalytic activity/Vol] 85 U/L Normal 38-126 [facility] Comment on above: Performed By: #### H EMOG, CMP3M, CRP2, LDH3, FIBGN, DDI2, APTT, FERR3 #### [facility] [address] [place] [address] Anion gap [Moles/Vol] 9 Normal [facility] Comment on above: Performed By: #### H EMOG, CMP3M, CRP2, LDH3, FIBGN, DDI2, APTT, FERR3 #### [facility] [address] [place] [address] AST [Catalytic activity/Vol] 104 U/L High 15-46 [facility] Comment on above: Performed By: #### H EMOG, CMP3M, CRP2, LDH3, FIBGN, DDI2, APTT, FERR3 #### [facility] [address] [place] [address] Bilirubin [Mass/Vol] 0.7 mg/dL Normal 0.2-1.3 [facility] Comment on above: Performed By: #### H EMOG, CMP3M, CRP2, LDH3, FIBGN, DDI2, APTT, FERR3 #### [facility] [address] [place] [address] CO2 [Moles/Vol] 18 mmol/L Low 22-30 [facility] Comment on above: Performed By: #### H EMOG, CMP3M, CRP2, LDH3, FIBGN, DDI2, APTT, FERR3 #### [facility] [address] [place] [address] Creatinine [Mass/Vol] 1.89 mg/dL High 0.52-1.25 [facility] Comment on above: Performed By: #### H EMOG, CMP3M, CRP2, LDH3, FIBGN, DDI2, APTT, FERR3 #### [facility] [address] [place] [address] GFR/1.73 sq M predicted among blacks MDRD (S/P/Bld) [Vol rate/Area] 44.5 mL/min/{1.73_m2} Abnormal >60 [facility] Comment on above: Performed By: #### H EMOG, CMP3M, CRP2, LDH3, FIBGN, DDI2, APTT, FERR3 #### [facility] [address] [place] [address] GFR/1.73 sq M predicted among non-blacks MDRD (S/P/Bld) [Vol rate/Area] 38.4 mL/min/{1.73_m2} Abnormal >60 [facility] Comment on above: Result Comment: KDIG [...] CRP2, LDH3, FIBGN, DDI2, APTT, FERR3 #### [facility] [address] [place] [address] Protein [Mass/Vol] 6.1 g/dL Low 6.3-8.2 [facility] Comment on above: Performed By: #### H EMOG, CMP3M, CRP2, LDH3, FIBGN, DDI2, APTT, FERR3 #### [facility] [address] [place] [address] Urea nitrogen [Mass/Vol] 35 mg/dL High 7-20 [facility] Comment on above: Performed By: #### H EMOG, CMP3M, CRP2, LDH3, FIBGN, DDI2, APTT, FERR3 #### [facility] [address] [place] [address] Potassium [Moles/Vol] 4.3 mmol/L Normal 3.5-5.1 [facility] Comment on above: Performed By: #### H EMOG, CMP3M, CRP2, LDH3, FIBGN, DDI2, APTT, FERR3 #### [facility] [address] [place] [address] Albumin [Mass/Vol] 3.3 g/dL Low 3.5-5.0 [facility] Comment on above: Performed By: #### H EMOG, CMP3M, CRP2, LDH3, FIBGN, DDI2, APTT, FERR3 #### [facility] [address] [place] [address] Chloride [Moles/Vol] 110 mmol/L High 98-107 [facility] Comment on above: Performed By: #### H EMOG, CMP3M, CRP2, LDH3, FIBGN, DDI2, APTT, FERR3 #### [facility] [address] [place] [address] Sodium [Moles/Vol] 137 mmol/L Normal 135-145 [facility] Comment on above: Performed By: #### H EMOG, CMP3M, CRP2, LDH3, FIBGN, DDI2, APTT, FERR3 #### [facility] [address] [place] [place] [address] Comprehensive Metabolic Pane l w/ Reflex to MGon 11-02-2020 Albumin [Mass/Vol] 3.3 g/dL Low 3.5 - 5 g/dL [place] ALP [Catalytic activity/Vol] 85 U/L 38 - 126 U/L [place] ALT [Catalytic activity/Vol] 198 U/L High 0 - 49 U/L [place] Comment on above: The ALT test is perf ormed by an updated assay method. Please note that the reference intervals have been changed and are now sex specific. Anion gap [Moles/Vol] 9 mmol/L [place] AST [Catalytic activity/Vol] 104 U/L High 15 - 46 U/L [place] Bilirubin Ql (U) 0.7 mg/dL 0.2 - 1.3 mg/dL [place] Calcium [Mass/Vol] 8.8 mg/dL 8.4 - 10. 4 mg/dL [place] Chloride [Moles/Vol] 110 mmol/L High 98 - 10 7 mmol/L [place] CO2 [Moles/Vol] 18 mmol/L Low 22 - 30 mmol/L [place] Creatinine [Mass/Vol] 1.89 mg/dL High 0.52 - 1.25 mg/dL [place] EGFR IF NonAfrican Armenian 38.4 mL/min Abnormal >60 [place] Comment on above: KDIGO guidelines pro [...] (S/P/Bld) [Vol rate/Area] 44.5 mL/min/{1.73_m2} Abnormal >60 [facility], [place] Glucose [Mass/Vol] 135 mg/dL High 70 - 100 mg/dL [facility], [place] Potassium [Moles/Vol] 4.3 mmol/L 3.5 - 5.1 mmol/L [facility], [place] Protein [Mass/Vol] 6.1 g/dL Low 6.3 - 8.2 g/dL [facility], [place] Sodium [Moles/Vol] 137 mmol/L 135 - 145 mmol/L [facility], [place] Urea nitrogen [Mass/Vol] 35 mg/dL High 7 - 20 mg/dL [facility], [place] D-Dimer, Innovanceon 1220-2 020 D-Dimer, Innovance 0.83 mg/L High 0.00-0.50 [facility] Comment on above: Result Comment: Inno quach D-Dimer values of <0.50 mg/L FEU can be used in combination with a pre-test probability model (e.g. Well's) to exclude pulmonary embolism (PE) disease, as well as an aid in the diagnosis of deep vein thrombosis (DVT). Performed By: #### H EMOG, CMP3M, CRP2, LDH3, FIBGN, DDI2, APTT, FERR3 #### [facility] [address] [place] [address] D-Dimer, Quantitativeon 12-2 0-2020 D-Dimer, Quant 0.83 mg/L High 0 - 0.5 mg/L [place] Comment on above: Innovance D-Dimer va lues of <0.50 mg/L FEU can be used in combination with a pre-test probability model (e.g. Well's) to exclude pulmonary embolism (PE) disease, as well as an aid in the diagnosis of deep vein thrombosis (DVT). Interpretation and review of laboratory results Abnormal [place] Ferritinon 11-02-2020 Ferritin [Mass/Vol] 938 ng/mL High 18-464 [facility] Comment on above: Performed By: #### H EMOG, CMP3M, CRP2, LDH3, FIBGN, DDI2, APTT, FERR3 #### [facility] [address] [place] [address] Ferritin [Mass/Vol] 938 ng/mL High 18 - 464 ng/mL [place] Interpretation and review of laboratory results Abnormal [place] Test Performed by [facility], [address] [place], [place] [address] [place] Fibrinogenon 11-02-2020 Fibrinogen 373 mg/dL Normal 200-400 [facility] Comment on above: Performed By: #### H EMOG, CMP3M, CRP2, LDH3, FIBGN, DDI2, APTT, FERR3 #### [facility] [address] [place] [address] Fibrinogen 373 mg/dL 200 - 400 mg/dL [place] Hemogramon 11-02-2020 Erythrocyte distribution width (RBC) [Ratio] 14.2 % Normal 11.5-14.5 [facility] Comment on above: Performed By: #### H EMOG, CMP3M, CRP2, LDH3, FIBGN, DDI2, APTT, FERR3 #### [facility] [address] [place] [address] Hematocrit (Bld) [Volume fraction] 39.5 % Low 40.0-52.0 [facility] Comment on above: Performed By: #### H EMOG, CMP3M, CRP2, LDH3, FIBGN, DDI2, APTT, FERR3 #### [facility] [address] [place] [address] Hemoglobin (Bld) [Mass/Vol] 13.2 g/dL Normal 13.0-18.0 [facility] Comment on above: Performed By: #### H EMOG, CMP3M, CRP2, LDH3, FIBGN, DDI2, APTT, FERR3 #### [facility] [address] [place] [address] MCH (RBC) [Entitic mass] 29.4 pg Normal 26.0-34.0 [facility] Comment on above: Performed By: #### H EMOG, CMP3M, CRP2, LDH3, FIBGN, DDI2, APTT, FERR3 #### [facility] [address] [place] [address] MCHC (RBC) [Mass/Vol] 33.5 % Normal 32.0-36.0 [facility] Comment on above: Performed By: #### H EMOG, CMP3M, CRP2, LDH3, FIBGN, DDI2, APTT, FERR3 #### [facility] [address] [place] [address] MCV (RBC) [Entitic vol] 87.8 fL Normal 80.0-98.0 S [facility] Comment on above: Performed By: #### H EMOG, CMP3M, CRP2, LDH3, FIBGN, DDI2, APTT, FERR3 #### [facility] [address] [place] [address] Platelet mean volume (Bld) [Entitic vol] 7.6 fL Normal 7.4-10.4 [facility] Comment on above: Performed By: #### H EMOG, CMP3M, CRP2, LDH3, FIBGN, DDI2, APTT, FERR3 #### [facility] [address] [place] [address] Platelets (Bld) [#/Vol] 340 10*3/uL Normal 140-440 [facility] Comment on above: Performed By: #### H EMOG, CMP3M, CRP2, LDH3, FIBGN, DDI2, APTT, FERR3 #### [facility] [address] [place] [address] RBC (Bld) [#/Vol] 4.49 10*6/uL Normal 4.40-5.90 [facility] Comment on above: Performed By: #### H EMOG, CMP3M, CRP2, LDH3, FIBGN, DDI2, APTT, FERR3 #### [facility] [address] [place] [address] WBC (Bld) [#/Vol] 13.0 10*3/uL High 3.6-10.7 [facility] Comment on above: Performed By: #### H EMOG, CMP3M, CRP2, LDH3, FIBGN, DDI2, APTT, FERR3 #### [facility] [address] [place] [address] LDHon 11-02-2020 LDH 589 U/L High 120-246 [facility] Comment on above: Performed By: #### H EMOG, CMP3M, CRP2, LDH3, FIBGN, DDI2, APTT, FERR3 #### [facility] [address] [place] [address] Lactate Dehydrogenaseon 10-15-2019 LD 589 U/L High 120 - 246 U/L [place] Otheron 11-02-2020 Test Performed by [facility], [address] [place] [id number] [place] [address] Interpretation and review of laboratory results Abnormal [place] Test Performed by [facility], [address] [place] [id number] [place] [address] C-Reactive Proteinon 020 CRP [Mass/Vol] 14.1 mg/L High 0.0-6.0 [facility] Comment on above: Result Comment: . Performed By: #### H EMOG, CMP3M, CRP2, LDH3, FIBGN, DDI2, APTT, FERR3 #### [facility] [address] [place] [address] CRP [Mass/Vol] 14.1 mg/L High 0 - 6 mg/L [place] Comment on above: . Interpretation and review of laboratory results Abnormal [place] Test Performed by [facility], [address] [place] [address] [place] Comp Panel with Mg Reflexon 11-01-2020 ALT [Catalytic activity/Vol] 173 U/L High 0-49 [facility] Comment on above: Result Comment: The ALT test is performed by an updated assay method. Please note that the reference intervals have been changed and are now sex specific. Performed By: #### H EMOG, CMP3M, CRP2, LDH3, FIBGN, DDI2, APTT, FERR3 #### [facility] [address] [place] [address] Calcium [Mass/Vol] 8.7 mg/dL Normal 8.4-10.4 [facility] Comment on above: Performed By: #### H EMOG, CMP3M, CRP2, LDH3, FIBGN, DDI2, APTT, FERR3 #### [facility] [address] [place] [address] ALP [Catalytic activity/Vol] 77 U/L Normal 38-126 [facility] Comment on above: Performed By: #### H EMOG, CMP3M, CRP2, LDH3, FIBGN, DDI2, APTT, FERR3 #### [facility] [address] [place] [address] Anion gap [Moles/Vol] 7 Normal [facility] Comment on above: Performed By: #### H EMOG, CMP3M, CRP2, LDH3, FIBGN, DDI2, APTT, FERR3 #### [facility] [address] [place] [address] AST [Catalytic activity/Vol] 135 U/L High 15-46 [facility] Comment on above: Performed By: #### H EMOG, CMP3M, CRP2, LDH3, FIBGN, DDI2, APTT, FERR3 #### [facility] [address] [place] [address] Bilirubin [Mass/Vol] 0.5 mg/dL Normal 0.2-1.3 [facility] Comment on above: Performed By: #### H EMOG, CMP3M, CRP2, LDH3, FIBGN, DDI2, APTT, FERR3 #### [facility] [address] [place] [address] CO2 [Moles/Vol] 18 mmol/L Low 22-30 [facility] Comment on above: Performed By: #### H EMOG, CMP3M, CRP2, LDH3, FIBGN, DDI2, APTT, FERR3 #### [facility] [address] [place] [address] Creatinine [Mass/Vol] 1.77 mg/dL High 0.52-1.25 [facility] Comment on above: Performed By: #### H EMOG, CMP3M, CRP2, LDH3, FIBGN, DDI2, APTT, FERR3 #### [facility] [address] [place] [address] GFR/1.73 sq M predicted among blacks MDRD (S/P/Bld) [Vol rate/Area] 48.2 mL/min/{1.73_m2} Abnormal >60 [facility] Comment on above: Performed By: #### H EMOG, CMP3M, CRP2, LDH3, FIBGN, DDI2, APTT, FERR3 #### [facility] [address] [place] [address] GFR/1.73 sq M predicted among non-blacks MDRD (S/P/Bld) [Vol rate/Area] 41.6 mL/min/{1.73_m2} Abnormal >60 [facility] Comment on above: Result Comment: KDIG [...] CRP2, LDH3, FIBGN, DDI2, APTT, FERR3 #### [facility] [address] [place] [address] Glucose [Mass/Vol] 134 mg/dL High 70-100 [facility] Comment on above: Performed By: #### H EMOG, CMP3M, CRP2, LDH3, FIBGN, DDI2, APTT, FERR3 #### [facility] [address] [place] [address] Protein [Mass/Vol] 5.6 g/dL Low 6.3-8.2 [facility] Comment on above: Performed By: #### H EMOG, CMP3M, CRP2, LDH3, FIBGN, DDI2, APTT, FERR3 #### [facility] [address] [place] [address] Urea nitrogen [Mass/Vol] 32 mg/dL High 7-20 [facility] Comment on above: Performed By: #### H EMOG, CMP3M, CRP2, LDH3, FIBGN, DDI2, APTT, FERR3 #### [facility] [address] [place] [address] Potassium [Moles/Vol] 4.2 mmol/L Normal 3.5-5.1 [facility] Comment on above: Performed By: #### H EMOG, CMP3M, CRP2, LDH3, FIBGN, DDI2, APTT, FERR3 #### [facility] [address] [place] [address] Sodium [Moles/Vol] 137 mmol/L Normal 135-145 [facility] Comment on above: Performed By: #### H EMOG, CMP3M, CRP2, LDH3, FIBGN, DDI2, APTT, FERR3 #### [facility] [address] [place] [address] Albumin [Mass/Vol] 3.1 g/dL Low 3.5-5.0 [facility] Comment on above: Performed By: #### H EMOG, CMP3M, CRP2, LDH3, FIBGN, DDI2, APTT, FERR3 #### [facility] [address] [place] [address] Chloride [Moles/Vol] 113 mmol/L High 98-107 [facility] Comment on above: Performed By: #### H EMOG, CMP3M, CRP2, LDH3, FIBGN, DDI2, APTT, FERR3 #### [facility] [address] [place] [address] Comprehensive Metabolic Pane l w/ Reflex to MGon 11-01-2020 Albumin [Mass/Vol] 3.1 g/dL Low 3.5 - 5 g/dL [place] ALP [Catalytic activity/Vol] 77 U/L 38 - 126 U/L [place] ALT [Catalytic activity/Vol] 173 U/L High 0 - 49 U/L [place] Comment on above: The ALT test is perf ormed by an updated assay method. Please note that the reference intervals have been changed and are now sex specific. Anion gap [Moles/Vol] 7 mmol/L [place] AST [Catalytic activity/Vol] 135 U/L High 15 - 46 U/L [place] Bilirubin Ql (U) 0.5 mg/dL 0.2 - 1.3 mg/dL [place] Calcium [Mass/Vol] 8.7 mg/dL 8.4 - 10. 4 mg/dL [place] Chloride [Moles/Vol] 113 mmol/L High 98 - 10 7 mmol/L [place] CO2 [Moles/Vol] 18 mmol/L Low 22 - 30 mmol/L [place] Creatinine [Mass/Vol] 1.77 mg/dL High 0.52 - 1.25 mg/dL [place] EGFR IF NonAfrican Armenian 41.6 mL/min Abnormal >60 [place] Comment on above: KDIGO guidelines pro [...] (S/P/Bld) [Vol rate/Area] 48.2 mL/min/{1.73_m2} Abnormal >60 [place] Glucose [Mass/Vol] 134 mg/dL High 70 - 100 mg/dL [place] Potassium [Moles/Vol] 4.2 mmol/L 3.5 - 5.1 mmol/L [place] Protein [Mass/Vol] 5.6 g/dL Low 6.3 - 8.2 g/dL [place] Sodium [Moles/Vol] 137 mmol/L 135 - 145 mmol/L [place] Urea nitrogen [Mass/Vol] 32 mg/dL High 7 - 20 mg/dL [place] D-Dimer, Innovanceon 11-01-2 020 D-Dimer, Innovance 0.87 mg/L High 0.00-0.50 [facility] Comment on above: Result Comment: Inno quach D-Dimer values of <0.50 mg/L FEU can be used in combination with a pre-test probability model (e.g. Well's) to exclude pulmonary embolism (PE) disease, as well as an aid in the diagnosis of deep vein thrombosis (DVT). Performed By: #### H EMOG, CMP3M, CRP2, LDH3, FIBGN, DDI2, APTT, FERR3 #### [facility] [address] [place] [address] D-Dimer, Quantitativeon 10-14 D-Dimer, Quant 0.87 mg/L High 0 - 0.5 mg/L [place] Comment on above: Innovance D-Dimer va lues of <0.50 mg/L FEU can be used in combination with a pre-test probability model (e.g. Well's) to exclude pulmonary embolism (PE) disease, as well as an aid in the diagnosis of deep vein thrombosis (DVT). EKG 12 Leadon 11-01-2020 [facility], [facility] Incoming Cardiology Results From [facility] - 11/01/2020 11:02 PM EST [facility] Test Date: 2020-10-31 Pat Name: Reggie León Department: Room: 468 Gender: Cirilo Bag Repairer: Jean CarlosG : 1965 Requested By: FARRUKH DIAZ Order Number: [id number] Reading MD: Usama Cedillo Measurements Intervals Blairs Rate: 83 P: 21 UT: 192 QRS: -16 QRSD: 104 T: 28 QT: 404 QTc: 475 Interpretive Statements SINUS RHYTHM MULTIPLE VENTRICULAR PREMATURE COMPLEXES Electronically Signed On 11-01-2020 23:01:06 EST by [facility] Test Date: 2020-10-31 Pat Name: Reggie León Department: 09 Room: 468 Gender: M Bag Repairer: NYLA : 1965 Requested By: FARRUKH DIAZ Order Number: [id number] Reading MD: Usama Cedillo Measurements Intervals Blairs Rate: 83 P: 21 UT: 192 QRS: -16 QRSD: 104 T: 28 QT: 404 QTc: 475 Interpretive Statements SINUS RHYTHM MULTIPLE VENTRICULAR PREMATURE COMPLEXES Electronically Signed On 11-01-2020 23:01:06 EST by [facility] Ferritinon 11-01-2020 Ferritin [Mass/Vol] 1020 ng/mL High 18-464 [facility] Comment on above: Performed By: #### H EMOG, CMP3M, CRP2, LDH3, FIBGN, DDI2, APTT, FERR3 #### [facility] [employer] [facility] [address] [place] [address] Ferritin [Mass/Vol] 1020 ng/mL High 18 - 464 ng/mL [facility] Interpretation and review of laboratory results Abnormal [facility] Test Performed by [facility], [address] [place] [address] [place] Fibrinogenon 11-01-2020 Fibrinogen 420 mg/dL High 200-400 [facility] Comment on above: Performed By: #### H EMOG, CMP3M, CRP2, LDH3, FIBGN, DDI2, APTT, FERR3 #### [facility] [address] [place] [address] Fibrinogen 420 mg/dL High 200 - 400 mg/dL [place] LDHon 11-01-2020 LDH 665 U/L High 120-246 [facility] Comment on above: Performed By: #### H EMOG, CMP3M, CRP2, LDH3, FIBGN, DDI2, APTT, FERR3 #### [facility] [address] [place] [address] Lactate Dehydrogenaseon 10-14 LD 665 U/L High 120 - 246 U/L [place] Otheron 11-01-2020 Interpretation and review of laboratory results Abnormal [place] Test Performed by [facility], [address] [place] [address] [place] Interpretation and review of laboratory results Abnormal [place] Test Performed by [facility], [address] [place] [address] [place] C-Reactive Proteinon 020 CRP [Mass/Vol] 19.2 mg/L High 0.0-6.0 [facility] Comment on above: Result Comment: . Performed By: #### H EMOG, CMP3M, CRP2, LDH3, FIBGN, DDI2, APTT, FERR3 #### [facility] [address] [place] [id number] CRP [Mass/Vol] 19.2 mg/L High 0 - 6 mg/L [place] Comment on above: . CBCon 10-31-2020 Erythrocyte distribution width (RBC) [Ratio] 14.0 % 11.5 - 14.5 % [place] Hematocrit (Bld) [Volume fraction] 35.7 % Low 40 - 52 % [place] Hemoglobin (Bld) [Mass/Vol] 12.0 g/dL Low 13 - 18 g/dL [place] Interpretation and review of laboratory results Abnormal [place] MCH (RBC) [Entitic mass] 29.0 pg 26 - 34 pg [place] MCHC (RBC) [Mass/Vol] 33.7 % 32 - 36 % [place] MCV (RBC) [Entitic vol] 86.3 fL 80 - 98 fL [place], [place] Platelet mean volume (Bld) [Entitic vol] 7.5 fL 7.4 - 10.4 fL [place] Platelets (Bld) [#/Vol] 294 10*3/uL 140 - 440 10*3/uL [place] RBC (Bld) [#/Vol] 4.14 10*6/uL Low 4.4 - 5.9 10*6/uL [place] WBC (Bld) [#/Vol] 9.5 10*3/uL 3.6 - 10.7 10*3/uL [place] Test Performed by [facility], [address], [place] [address] [place] Comp Panel with Mg Reflexon 10-31-2020 ALT [Catalytic activity/Vol] 79 U/L High 0-49 [facility] Comment on above: Result Comment: The ALT test is performed by an updated assay method. Please note that the reference intervals have been changed and are now sex specific. Performed By: #### H EMOG, CMP3M, CRP2, LDH3, FIBGN, DDI2, APTT, FERR3 #### [facility] [address] [place] [address] Calcium [Mass/Vol] 8.7 mg/dL Normal 8.4-10.4 [facility] Comment on above: Performed By: #### H EMOG, CMP3M, CRP2, LDH3, FIBGN, DDI2, APTT, FERR3 #### [facility] [address] [place] [address] Glucose [Mass/Vol] 139 mg/dL High 70-100 [facility] Comment on above: Performed By: #### H EMOG, CMP3M, CRP2, LDH3, FIBGN, DDI2, APTT, FERR3 #### [facility] [address] [place] [address] Urea nitrogen [Mass/Vol] 30 mg/dL High 7-20 [facility] Comment on above: Performed By: #### H EMOG, CMP3M, CRP2, LDH3, FIBGN, DDI2, APTT, FERR3 #### [facility] [address] [place] [address] ALP [Catalytic activity/Vol] 69 U/L Normal 38-126 [facility] Comment on above: Performed By: #### H EMOG, CMP3M, CRP2, LDH3, FIBGN, DDI2, APTT, FERR3 #### [facility] [address] [place] [address] Anion gap [Moles/Vol] 7 Normal [facility] Comment on above: Performed By: #### H EMOG, CMP3M, CRP2, LDH3, FIBGN, DDI2, APTT, FERR3 #### [facility] [address] [place] [address] AST [Catalytic activity/Vol] 67 U/L High 15-46 [facility] Comment on above: Performed By: #### H EMOG, CMP3M, CRP2, LDH3, FIBGN, DDI2, APTT, FERR3 #### [facility] [address] [place] [address] Bilirubin [Mass/Vol] 0.4 mg/dL Normal 0.2-1.3 [facility] Comment on above: Performed By: #### H EMOG, CMP3M, CRP2, LDH3, FIBGN, DDI2, APTT, FERR3 #### [facility] [address] [place] [address] CO2 [Moles/Vol] 17 mmol/L Low 22-30 [facility] Comment on above: Performed By: #### H EMOG, CMP3M, CRP2, LDH3, FIBGN, DDI2, APTT, FERR3 #### [facility] [address] [place] [address] Creatinine [Mass/Vol] 1.84 mg/dL High 0.52-1.25 [facility] Comment on above: Performed By: #### H EMOG, CMP3M, CRP2, LDH3, FIBGN, DDI2, APTT, FERR3 #### [facility] [address] [place] [address] GFR/1.73 sq M predicted among blacks MDRD (S/P/Bld) [Vol rate/Area] 46.0 mL/min/{1.73_m2} Abnormal >60 [facility] Comment on above: Performed By: #### H EMOG, CMP3M, CRP2, LDH3, FIBGN, DDI2, APTT, FERR3 #### [facility] [address] [place] [address] GFR/1.73 sq M predicted among non-blacks MDRD (S/P/Bld) [Vol rate/Area] 39.7 mL/min/{1.73_m2} Abnormal >60 [facility] Comment on above: Result Comment: KDIG [...] CRP2, LDH3, FIBGN, DDI2, APTT, FERR3 #### [facility] [address] [place] [address] Protein [Mass/Vol] 5.3 g/dL Low 6.3-8.2 [facility] Comment on above: Performed By: #### H EMOG, CMP3M, CRP2, LDH3, FIBGN, DDI2, APTT, FERR3 #### [facility] [address] [place] [address] Albumin [Mass/Vol] 2.8 g/dL Low 3.5-5.0 [facility] Comment on above: Performed By: #### H EMOG, CMP3M, CRP2, LDH3, FIBGN, DDI2, APTT, FERR3 #### [facility] [address] [place] [address] Chloride [Moles/Vol] 112 mmol/L High 98-107 [facility] Comment on above: Performed By: #### H EMOG, CMP3M, CRP2, LDH3, FIBGN, DDI2, APTT, FERR3 #### [facility] [address] [place] [address] Sodium [Moles/Vol] 136 mmol/L Normal 135-145 [facility] Comment on above: Performed By: #### H EMOG, CMP3M, CRP2, LDH3, FIBGN, DDI2, APTT, FERR3 #### [facility] [address] [place] [address] Potassium [Moles/Vol] 3.8 mmol/L Normal 3.5-5.1 [place] Comment on above: Performed By: #### H EMOG, CMP3M, CRP2, LDH3, FIBGN, DDI2, APTT, FERR3 #### [facility] [address] [place] [address] Comprehensive Metabolic Pane l w/ Reflex to MGon 10-31-2020 Albumin [Mass/Vol] 2.8 g/dL Low 3.5 - 5 g/dL [place] ALP [Catalytic activity/Vol] 69 U/L 38 - 126 U/L [place] ALT [Catalytic activity/Vol] 79 U/L High 0 - 49 U/L [place] Comment on above: The ALT test is perf ormed by an updated assay method. Please note that the reference intervals have been changed and are now sex specific. Anion gap [Moles/Vol] 7 mmol/L [place] AST [Catalytic activity/Vol] 67 U/L High 15 - 46 U/L [place] Bilirubin Ql (U) 0.4 mg/dL 0.2 - 1.3 mg/dL [place] Calcium [Mass/Vol] 8.7 mg/dL 8.4 - 10. 4 mg/dL [place] Chloride [Moles/Vol] 112 mmol/L High 98 - 10 7 mmol/L [place] CO2 [Moles/Vol] 17 mmol/L Low 22 - 30 mmol/L [place] Creatinine [Mass/Vol] 1.84 mg/dL High 0.52 - 1.25 mg/dL [place] EGFR IF NonAfrican Armenian 39.7 mL/min Abnormal >60 [place] Comment on above: KDIGO guidelines pro [...] (S/P/Bld) [Vol rate/Area] 46.0 mL/min/{1.73_m2} Abnormal >60 [place] Glucose [Mass/Vol] 139 mg/dL High 70 - 100 mg/dL [place] Protein [Mass/Vol] 5.3 g/dL Low 6.3 - 8.2 g/dL [place] Sodium [Moles/Vol] 136 mmol/L 135 - 145 mmol/L [place] Urea nitrogen [Mass/Vol] 30 mg/dL High 7 - 20 mg/dL [place] D-Dimer, Innovanceon 020 D-Dimer, Innovance 0.96 mg/L High 0.00-0.50 [facility] Comment on above: Result Comment: Inno quach D-Dimer values of <0.50 mg/L FEU can be used in combination with a pre-test probability model (e.g. Well's) to exclude pulmonary embolism (PE) disease, as well as an aid in the diagnosis of deep vein thrombosis (DVT). Performed By: #### H EMOG, CMP3M, CRP2, LDH3, FIBGN, DDI2, APTT, FERR3 #### [facility] [address] [place] [address] D-Dimer, Quantitativeon 10-14 D-Dimer, Quant 0.96 mg/L High 0 - 0.5 mg/L [place] Comment on above: Innov[employer] D-Dimer va lues of <0.50 mg/L FEU can be used in combination with a pre-test probability model (e.g. Well's) to exclude pulmonary embolism (PE) disease, as well as an aid in the diagnosis of deep vein thrombosis (DVT). Ferritinon 10-31-2020 Ferritin [Mass/Vol] 810 ng/mL High 18-464 [facility] Comment on above: Performed By: #### H EMOG, CMP3M, CRP2, LDH3, FIBGN, DDI2, APTT, FERR3 #### [facility] [address] [place] [address] Ferritin [Mass/Vol] 810 ng/mL High 18 - 464 ng/mL [place] Interpretation and review of laboratory results Abnormal [place] Test Performed by [facility], [address] [place] [address] [place] Fibrinogenon 10-31-2020 Fibrinogen 455 mg/dL High 200-400 [facility] Comment on above: Performed By: #### H EMOG, CMP3M, CRP2, LDH3, FIBGN, DDI2, APTT, FERR3 #### [facility] [address] [place] [address] Fibrinogen 455 mg/dL High 200 - 400 mg/dL [facility], [place] Hemogramon 10-31-2020 Erythrocyte distribution width (RBC) [Ratio] 14.0 % Normal 11.5-14.5 [facility] Comment on above: Performed By: #### H EMOG, CMP3M, CRP2, LDH3, FIBGN, DDI2, APTT, FERR3 #### [facility] [address] [place] [address] Hematocrit (Bld) [Volume fraction] 35.7 % Low 40.0-52.0 [facility] Comment on above: Performed By: #### H EMOG, CMP3M, CRP2, LDH3, FIBGN, DDI2, APTT, FERR3 #### [facility] [address] [place] [address] Hemoglobin (Bld) [Mass/Vol] 12.0 g/dL Low 13.0-18.0 [facility] Comment on above: Performed By: #### H EMOG, CMP3M, CRP2, LDH3, FIBGN, DDI2, APTT, FERR3 #### [facility] [address] [place] [address] MCH (RBC) [Entitic mass] 29.0 pg Normal 26.0-34.0 [facility] Comment on above: Performed By: #### H EMOG, CMP3M, CRP2, LDH3, FIBGN, DDI2, APTT, FERR3 #### [facility] [address] [place] [address] MCHC (RBC) [Mass/Vol] 33.7 % Normal 32.0-36.0 [facility] Comment on above: Performed By: #### H EMOG, CMP3M, CRP2, LDH3, FIBGN, DDI2, APTT, FERR3 #### [facility] [address] [place] [address] MCV (RBC) [Entitic vol] 86.3 fL Normal 80.0-98.0 [facility] Comment on above: Performed By: #### H EMOG, CMP3M, CRP2, LDH3, FIBGN, DDI2, APTT, FERR3 #### [facility] [address] [place] [address] Platelet mean volume (Bld) [Entitic vol] 7.5 fL Normal 7.4-10.4 [facility] Comment on above: Performed By: #### H EMOG, CMP3M, CRP2, LDH3, FIBGN, DDI2, APTT, FERR3 #### [facility] [address] [place] [address] Platelets (Bld) [#/Vol] 294 10*3/uL Normal 140-440 [facility] Comment on above: Performed By: #### H EMOG, CMP3M, CRP2, LDH3, FIBGN, DDI2, APTT, FERR3 #### [facility] [address] [place] [address] RBC (Bld) [#/Vol] 4.14 10*6/uL Low 4.40-5.90 [facility] Comment on above: Performed By: #### H EMOG, CMP3M, CRP2, LDH3, FIBGN, DDI2, APTT, FERR3 #### [facility] [address] [place] [address] WBC (Bld) [#/Vol] 9.5 10*3/uL Normal 3.6-10.7 [facility] Comment on above: Performed By: #### H EMOG, CMP3M, CRP2, LDH3, FIBGN, DDI2, APTT, FERR3 #### [facility] [address] [place] [address] LDHon 10-31-2020 LDH 572 U/L High 120-246 [facility] Comment on above: Performed By: #### H EMOG, CMP3M, CRP2, LDH3, FIBGN, DDI2, APTT, FERR3 #### [facility] [address] [place] [address] Lactate Dehydrogenaseon 10-14 LD 572 U/L High 120 - 246 U/L [facility], [place] Otheron 10-31-2020 Interpretation and review of laboratory results Abnormal [facility] [place] Test Performed by [facility], [address] [place] [address] [place] Interpretation and review of laboratory results Abnormal [place] Test Performed by [facility], [address] [place] [address] [place] APTTon 10-30-2020 aPTT Coag (Bld) [Time] 47.0 s High 20.0-30.5 [facility] Comment on above: Result Comment: NOTE : The therapeutic time for Heparin anticoagulation, based on Xa activity inhibition, is an APTT of 46-80 seconds. Performed By: #### H EMOG, CMP3M, CRP2, LDH3, FIBGN, DDI2, APTT, FERR3 #### [facility] [address] [place] [address] aPTT Coag (Bld) [Time] 47 s High 20 - 30.5 s [place] Comment on above: NOTE: The therapeuti c time for Heparin anticoagulation, based on Xa activity inhibition, is an APTT of 46-80 seconds. C-Reactive Proteinon 020 CRP [Mass/Vol] 27.5 mg/L High 0.0-6.0 [facility] Comment on above: Result Comment: . Performed By: #### H EMOG, CMP3M, CRP2, LDH3, FIBGN, DDI2, APTT, FERR3 #### [facility] [address] [place] [address] CRP [Mass/Vol] 27.5 mg/L High 0 - 6 mg/L [place] Comment on above: . Comp Panel with Mg Reflexon 10-30-2020 ALT [Catalytic activity/Vol] 67 U/L High 0-49 [facility] Comment on above: Result Comment: The ALT test is performed by an updated assay method. Please note that the reference intervals have been changed and are now sex specific. Performed By: #### H EMOG, CMP3M, CRP2, LDH3, FIBGN, DDI2, APTT, FERR3 #### [facility] [address] [place] [address] Calcium [Mass/Vol] 8.6 mg/dL Normal 8.4-10.4 [facility] Comment on above: Performed By: #### H EMOG, CMP3M, CRP2, LDH3, FIBGN, DDI2, APTT, FERR3 #### [facility] [address] [place] [address] Glucose [Mass/Vol] 142 mg/dL High 70-100 [facility] Comment on above: Performed By: #### H EMOG, CMP3M, CRP2, LDH3, FIBGN, DDI2, APTT, FERR3 #### [facility] [address] [place] [address] Urea nitrogen [Mass/Vol] 30 mg/dL High 7-20 [facility] Comment on above: Performed By: #### H EMOG, CMP3M, CRP2, LDH3, FIBGN, DDI2, APTT, FERR3 #### [facility] [address] [place] [address] ALP [Catalytic activity/Vol] 75 U/L Normal 38-126 [facility] Comment on above: Performed By: #### H EMOG, CMP3M, CRP2, LDH3, FIBGN, DDI2, APTT, FERR3 #### [facility] [address] [place] [address] Anion gap [Moles/Vol] 8 Normal [facility] Comment on above: Performed By: #### H EMOG, CMP3M, CRP2, LDH3, FIBGN, DDI2, APTT, FERR3 #### [facility] [address] [place] [address] AST [Catalytic activity/Vol] 67 U/L High 15-46 [facility] Comment on above: Performed By: #### H EMOG, CMP3M, CRP2, LDH3, FIBGN, DDI2, APTT, FERR3 #### [facility] [address] [place] [address] Bilirubin [Mass/Vol] 0.3 mg/dL Normal 0.2-1.3 [facility] Comment on above: Performed By: #### H EMOG, CMP3M, CRP2, LDH3, FIBGN, DDI2, APTT, FERR3 #### [facility] [address] [place] [address] CO2 [Moles/Vol] 18 mmol/L Low 22-30 [facility] Comment on above: Performed By: #### H EMOG, CMP3M, CRP2, LDH3, FIBGN, DDI2, APTT, FERR3 #### [facility] [address] [place] [address] Creatinine [Mass/Vol] 2.01 mg/dL High 0.52-1.25 [facility] Comment on above: Performed By: #### H EMOG, CMP3M, CRP2, LDH3, FIBGN, DDI2, APTT, FERR3 #### [facility] [address] [place] [address] GFR/1.73 sq M predicted among blacks MDRD (S/P/Bld) [Vol rate/Area] 41.3 mL/min/{1.73_m2} Abnormal >60 [facility] Comment on above: Performed By: #### H EMOG, CMP3M, CRP2, LDH3, FIBGN, DDI2, APTT, FERR3 #### [facility] [address] [place] [address] GFR/1.73 sq M predicted among non-blacks MDRD (S/P/Bld) [Vol rate/Area] 35.6 mL/min/{1.73_m2} Abnormal >60 [facility] Comment on above: Result Comment: KDIG [...] CRP2, LDH3, FIBGN, DDI2, APTT, FERR3 #### [facility] [address] [place] [address] Protein [Mass/Vol] 5.7 g/dL Low 6.3-8.2 [facility] Comment on above: Performed By: #### H EMOG, CMP3M, CRP2, LDH3, FIBGN, DDI2, APTT, FERR3 #### [facility] [address] [place] [address] Potassium [Moles/Vol] 4.0 mmol/L Normal 3.5-5.1 [facility] Comment on above: Performed By: #### H EMOG, CMP3M, CRP2, LDH3, FIBGN, DDI2, APTT, FERR3 #### [facility] [address] [place] [address] Albumin [Mass/Vol] 2.9 g/dL Low 3.5-5.0 [facility] Comment on above: Performed By: #### H EMOG, CMP3M, CRP2, LDH3, FIBGN, DDI2, APTT, FERR3 #### [facility] [address] [place] [address] Chloride [Moles/Vol] 114 mmol/L High 98-107 [facility] Comment on above: Performed By: #### H EMOG, CMP3M, CRP2, LDH3, FIBGN, DDI2, APTT, FERR3 #### [facility] [address] [place] [address] Sodium [Moles/Vol] 140 mmol/L Normal 135-145 [facility] Comment on above: Performed By: #### H EMOG, CMP3M, CRP2, LDH3, FIBGN, DDI2, APTT, FERR3 #### [facility] [address] [place] [address] Comprehensive Metabolic Pane l w/ Reflex to MGon 10-30-2020 Albumin [Mass/Vol] 2.9 g/dL Low 3.5 - 5 g/dL [facility], [place] ALP [Catalytic activity/Vol] 75 U/L 38 - 126 U/L [place] ALT [Catalytic activity/Vol] 67 U/L High 0 - 49 U/L [place] Comment on above: The ALT test is perf ormed by an updated assay method. Please note that the reference intervals have been changed and are now sex specific. Anion gap [Moles/Vol] 8 mmol/L [place] AST [Catalytic activity/Vol] 67 U/L High 15 - 46 U/L [place] Bilirubin Ql (U) 0.3 mg/dL 0.2 - 1.3 mg/dL [place] Calcium [Mass/Vol] 8.6 mg/dL 8.4 - 10. 4 mg/dL [place] Chloride [Moles/Vol] 114 mmol/L High 98 - 10 7 mmol/L [place] CO2 [Moles/Vol] 18 mmol/L Low 22 - 30 mmol/L [place] Creatinine [Mass/Vol] 2.01 mg/dL High 0.52 - 1.25 mg/dL [place] EGFR IF NonAfrican [place] 35.6 mL/min Abnormal >60 [place] Comment on above: KDIGO guidelines pro [...] (S/P/Bld) [Vol rate/Area] 41.3 mL/min/{1.73_m2} Abnormal >60 [place] Glucose [Mass/Vol] 142 mg/dL High 70 - 100 mg/dL [place] Potassium [Moles/Vol] 4.0 mmol/L 3.5 - 5.1 mmol/L [place] Protein [Mass/Vol] 5.7 g/dL Low 6.3 - 8.2 g/dL [place] Sodium [Moles/Vol] 140 mmol/L 135 - 145 mmol/L [place] Urea nitrogen [Mass/Vol] 30 mg/dL High 7 - 20 mg/dL [place] D-Dimer, [employer] 020 D-Dimer, [employer] 0.89 mg/L High 0.00-0.50 [facility] Comment on above: Result Comment: Inno quach D-Dimer values of <0.50 mg/L FEU can be used in combination with a pre-test probability model (e.g. Well's) to exclude pulmonary embolism (PE) disease, as well as an aid in the diagnosis of deep vein thrombosis (DVT). Performed By: #### H EMOG, CMP3M, CRP2, LDH3, FIBGN, DDI2, APTT, FERR3 #### [place] [facility] [address] [place] [address] D-Dimer, Quantitativeon 10-14 D-Dimer, Quant 0.89 mg/L High 0 - 0.5 mg/L [place] Comment on above: Monaeo D-Dimer va lues of <0.50 mg/L FEU can be used in combination with a pre-test probability model (e.g. Well's) to exclude pulmonary embolism (PE) disease, as well as an aid in the diagnosis of deep vein thrombosis (DVT). Ferritinon 10-30-2020 Ferritin [Mass/Vol] 885 ng/mL High 18-464 [facility] [employer] [facility] Comment on above: Performed By: #### H EMOG, CMP3M, CRP2, LDH3, FIBGN, DDI2, APTT, FERR3 #### [facility] [address] [place] [address] Ferritin [Mass/Vol] 885 ng/mL High 18 - 464 ng/mL [place] Interpretation and review of laboratory results Abnormal [place] Test Performed by [facility], [address] [place] [address] [place] Fibrinogenon 10-30-2020 Fibrinogen 456 mg/dL High 200-400 [facility] Comment on above: Performed By: #### H EMOG, CMP3M, CRP2, LDH3, FIBGN, DDI2, APTT, FERR3 #### [facility] [address] [place] [address] Fibrinogen 456 mg/dL High 200 - 400 mg/dL [place] LDHon 10-30-2020 LDH 613 U/L High 120-246 [facility] Comment on above: Performed By: #### H EMOG, CMP3M, CRP2, LDH3, FIBGN, DDI2, APTT, FERR3 #### [facility] [address] [place] [address] Lactate Dehydrogenaseon 10-14 LD 613 U/L High 120 - 246 U/L [place] Otheron 10-30-2020 Interpretation and review of laboratory results Abnormal [place] Test Performed by [facility], [address] [place] [id number] [place] [address] Interpretation and review of laboratory results Abnormal [place] Test Performed by [facility], [address] [place] [address] [place] APTTon 10-29-2020 aPTT Coag (Bld) [Time] 35.1 s High 20.0-30.5 [facility] Comment on above: Result Comment: NOTE : The therapeutic time for Heparin anticoagulation, based on Xa activity inhibition, is an APTT of 46-80 seconds. Performed By: #### H EMOG, CMP3M, CRP2, LDH3, FIBGN, DDI2, APTT, FERR3 #### [facility] [address] [place] [address] aPTT Coag (Bld) [Time] 35.1 s High 20 - 30.5 s [place] Comment on above: NOTE: The therapeuti c time for Heparin anticoagulation, based on Xa activity inhibition, is an APTT of 46-80 seconds. C-Reactive Proteinon 020 CRP [Mass/Vol] 34.9 mg/L High 0.0-6.0 [facility] Comment on above: Result Comment: . Performed By: #### H EMOG, CMP3M, CRP2, LDH3, FIBGN, DDI2, APTT, FERR3 #### [facility] [address] [place] [address] CRP [Mass/Vol] 34.9 mg/L High 0 - 6 mg/L [place] Comment on above: . CBCon 10-29-2020 Erythrocyte distribution width (RBC) [Ratio] 14.2 % 11.5 - 14.5 % [place] Hematocrit (Bld) [Volume fraction] 37.3 % Low 40 - 52 % [place] Hemoglobin (Bld) [Mass/Vol] 12.6 g/dL Low 13 - 18 g/dL [place] Interpretation and review of laboratory results Abnormal [place] MCH (RBC) [Entitic mass] 29.2 pg 26 - 34 pg [place] MCHC (RBC) [Mass/Vol] 33.7 % 32 - 36 % [place] MCV (RBC) [Entitic vol] 86.7 fL 80 - 98 fL [place] Platelet mean volume (Bld) [Entitic vol] 7.6 fL 7.4 - 10.4 fL [place] Platelets (Bld) [#/Vol] 255 10*3/uL 140 - 440 10*3/uL [place] RBC (Bld) [#/Vol] 4.30 10*6/uL Low 4.4 - 5.9 10*6/uL [place] WBC (Bld) [#/Vol] 7.8 10*3/uL 3.6 - 10.7 10*3/uL [place] Test Performed by [facility], [address], [place], [place] [address] [place] CBC auto differentialon 12-1 6-2020 Absolute Baso # 0.0 10*3/uL 0 - 0.2 10*3/uL [place] Absolute Neut # 3.5 10*3/uL 1.8 - 7 10*3/uL [place] Basophils/100 WBC (Bld) 0.3 % 0 - 2 % [place] Eosinophils (Bld) [#/Vol] 0.0 10*3/uL 0 - 0.5 10*3/uL [place] Eosinophils/100 WBC (Bld) 0.0 % Low 1 - 6 % [place] Erythrocyte distribution width (RBC) [Ratio] 13.8 % 11.5 - 14.5 % [place] Granulocytes/100 WBC (Bld) 79.4 % 40 - 80 % [place] Hematocrit (Bld) [Volume fraction] 36.7 % Low 40 - 52 % [place] Hemoglobin (Bld) [Mass/Vol] 12.2 g/dL Low 13 - 18 g/dL [place] Interpretation and review of laboratory results Abnormal [place] Lymphocytes (Bld) [#/Vol] 0.4 10*3/uL Low 1 - 4.3 10*3/uL [place] Lymphocytes/100 WBC (Bld) 8.8 % Low 20 - 40 % [place] MCH (RBC) [Entitic mass] 29.1 pg 26 - 34 pg [place] MCHC (RBC) [Mass/Vol] 33.1 % 32 - 36 % [place] MCV (RBC) [Entitic vol] 87.8 fL 80 - 98 fL [place] Monocytes (Bld) [#/Vol] 0.5 10*3/uL 0 - 0.8 10*3/uL [place] Monocytes/100 WBC (Bld) 11.5 % High 2 - 10 % [place] Platelet mean volume (Bld) [Entitic vol] 7.9 fL 7.4 - 10.4 fL [place] Platelets (Bld) [#/Vol] 231 10*3/uL 140 - 440 10*3/uL [place] RBC (Bld) [#/Vol] 4.19 10*6/uL Low 4.4 - 5.9 10*6/uL [place] WBC (Bld) [#/Vol] 4.4 10*3/uL 3.6 - 10.7 10*3/uL [place] Test Performed by [facility], [address] [place], [place], [place] [address] [place] COVID and Resp PCR Panelon 12-30-2019 COVID and Resp PCR Panel COVID and Resp PCR Panel --> Status: F NEGATIVE: No targets were detected by the [employer] Upper Respiratory Pathogens PCR Panel. _ Expected Result: Not Detected The [employer] Upper Respiratory Pathogens PCR Panel can detect [...] management decisions. This assay was developed by [employer] and distributed under an Emergency Use Authorization (EUA) granted by the FDA for the qualitative detection of SARS-CoV-2 nucleic acid. Provider and patient fact sheets can be found at https://www.fda.gov/media/ 351512/download and https://www.fda.gov/media/ 824810/download. Respiratory Pathogens PCR Panel. _ Expected Result: Not Detected The [employer] Upper Respiratory Pathogens PCR Panel can detect [...] management decisions. This assay was developed by [employer] and distributed under an Emergency Use Authorization (EUA) granted by the FDA for the qualitative detection of SARS-CoV-2 nucleic acid. Provider and patient fact sheets can be found at https://www.fda.gov/media/ 983268/download and https://www.fda.gov/media/ 030961/download. Normal [facility] Comment on above: Performed By: #### H EMOG, CMP3M, CRP2, LDH3, FIBGN, DDI2, APTT, FERR3 #### [facility] [address] [place] [address] CTA CHEST W WO CONTRASTon Patient Name: REGGIE WILSON Computed Tomography ACCESSION EXAM DATE/TIME PROCEDURE ORDERING PROVIDER [id number] 10/29/2020 16:29 EST CTA Chest w/ + w/o MD EMILY, FARRUKH MCCORMICK Contrast CPT code 68861 Q9967 Reason For Exam (CTA Chest w/ + w/o Contrast) Hypoxia and elevated D-dimer, possible COVID+ and PE? Report Reasons for examination: Hypoxia, elevated d-dimer, Covid 19. CT scan of the chest were performed with bolus contrast and high resolution scans for CT pulmonary angiographic study, with images post-processed by myself on [employer] workstation, with 3D - volume rendered CT [...] WILLIAM Transcribed Date and Time: 10/29/2020 4:51 [place] Michel, [facility] Incoming [facility] - 10/29/2020 4:51 PM EST Patient Name: REGGIE LEÓN Computed Tomography ACCESSION EXAM DATE/TIME PROCEDURE ORDERING PROVIDER [id number] 10/29/2020 16:29 EST CTA Chest w/ + w/o MD EMILY, IMJAQUELINE MCCORMICK Contrast CPT code 38353 Q9967 Reason For Exam (CTA Chest w/ + w/o Contrast) Hypoxia and elevated D-dimer, possible COVID+ and PE? Report Reasons for examination: Hypoxia, elevated d-dimer, Covid 19. CT scan of the chest were performed with bolus contrast and high resolution scans for CT pulmonary angiographic study, with images post-processed by myself on [employer] workstation, with 3D - volume rendered CT [...] WILLIAM Transcribed Date and Time: 10/29/2020 4:51 [place] CTA Chest w/ + w/o Contrasto n 10-29-2020 CTA Chest w/ + w/o Contrast Patient Name: REGGIE LEÓN Computed Tomography ACCESSION EXAM DATE/TIME PROCEDURE ORDERING PROVIDER [id number] 10/29/2020 16:29 EST CTA Chest w/ + w/o MD EMILY, FARRUKH MCCORMICK Contrast CPT code 25335 Q9967 Reason For Exam (CTA Chest w/ + w/o Contrast) Hypoxia and elevated D-dimer, possible COVID+ and PE? Report Reasons for examination: Hypoxia, elevated d-dimer, Covid 19. CT scan of the chest were performed with bolus contrast and high resolution scans for CT pulmonary angiographic study, with images post-processed by myself on [employer] workstation, with 3D - volume rendered CT [...] Transcribed Date and Time: 10/29/2020 4:51 Normal [facility] Comp Panel with Mg Reflexon 10-29-2020 ALP [Catalytic activity/Vol] 71 U/L Normal 38-126 [facility] Comment on above: Performed By: #### H EMOG, CMP3M, CRP2, LDH3, FIBGN, DDI2, APTT, FERR3 #### [facility] [address] [place] [address] ALT [Catalytic activity/Vol] 67 U/L High 0-49 [facility] Comment on above: Result Comment: The ALT test is performed by an updated assay method. Please note that the reference intervals have been changed and are now sex specific. Performed By: #### H EMOG, CMP3M, CRP2, LDH3, FIBGN, DDI2, APTT, FERR3 #### [facility] [address] [place] [address] Anion gap [Moles/Vol] 7 Normal [facility] Comment on above: Performed By: #### H EMOG, CMP3M, CRP2, LDH3, FIBGN, DDI2, APTT, FERR3 #### [facility] [address] [place] [address] AST [Catalytic activity/Vol] 88 U/L High 15-46 [facility] Comment on above: Performed By: #### H EMOG, CMP3M, CRP2, LDH3, FIBGN, DDI2, APTT, FERR3 #### [facility] [address] [place] [address] Bilirubin [Mass/Vol] 0.6 mg/dL Normal 0.2-1.3 [facility] Comment on above: Performed By: #### H EMOG, CMP3M, CRP2, LDH3, FIBGN, DDI2, APTT, FERR3 #### [facility] [address] [place] [address] Calcium [Mass/Vol] 8.9 mg/dL Normal 8.4-10.4 [facility] Comment on above: Performed By: #### H EMOG, CMP3M, CRP2, LDH3, FIBGN, DDI2, APTT, FERR3 #### [facility] [address] [place] [address] CO2 [Moles/Vol] 18 mmol/L Low 22-30 [facility] Comment on above: Performed By: #### H EMOG, CMP3M, CRP2, LDH3, FIBGN, DDI2, APTT, FERR3 #### [facility] [address] [place] [address] Creatinine [Mass/Vol] 2.24 mg/dL High 0.52-1.25 [facility] Comment on above: Performed By: #### H EMOG, CMP3M, CRP2, LDH3, FIBGN, DDI2, APTT, FERR3 #### [facility] [address] [place] [address] GFR/1.73 sq M predicted among blacks MDRD (S/P/Bld) [Vol rate/Area] 36.2 mL/min/{1.73_m2} Abnormal >60 [facility] Comment on above: Performed By: #### H EMOG, CMP3M, CRP2, LDH3, FIBGN, DDI2, APTT, FERR3 #### [facility] [address] [place] [address] GFR/1.73 sq M predicted among non-blacks MDRD (S/P/Bld) [Vol rate/Area] 31.3 mL/min/{1.73_m2} Abnormal >60 [facility] Comment on above: Result Comment: KDIG [...] CRP2, LDH3, FIBGN, DDI2, APTT, FERR3 #### [facility] [address] [place] [address] Glucose [Mass/Vol] 132 mg/dL High 70-100 [facility] Comment on above: Performed By: #### H EMOG, CMP3M, CRP2, LDH3, FIBGN, DDI2, APTT, FERR3 #### [facility] [address] [place] [address] Protein [Mass/Vol] 6.0 g/dL Low 6.3-8.2 [facility] Comment on above: Performed By: #### H EMOG, CMP3M, CRP2, LDH3, FIBGN, DDI2, APTT, FERR3 #### [facility] [address] [place] [address] Urea nitrogen [Mass/Vol] 33 mg/dL High 7-20 [facility] Comment on above: Performed By: #### H EMOG, CMP3M, CRP2, LDH3, FIBGN, DDI2, APTT, FERR3 #### [facility] [address] [place] [address] Potassium [Moles/Vol] 3.9 mmol/L Normal 3.5-5.1 [facility] Comment on above: Performed By: #### H EMOG, CMP3M, CRP2, LDH3, FIBGN, DDI2, APTT, FERR3 #### [facility] [address] [place] [address] Albumin [Mass/Vol] 3.2 g/dL Low 3.5-5.0 [facility] Comment on above: Performed By: #### H EMOG, CMP3M, CRP2, LDH3, FIBGN, DDI2, APTT, FERR3 #### [facility] [address] [place] [address] Chloride [Moles/Vol] 112 mmol/L High 98-107 [facility] Comment on above: Performed By: #### H EMOG, CMP3M, CRP2, LDH3, FIBGN, DDI2, APTT, FERR3 #### [facility] [address] [place] [address] Sodium [Moles/Vol] 137 mmol/L Normal 135-145 [facility] Comment on above: Performed By: #### H EMOG, CMP3M, CRP2, LDH3, FIBGN, DDI2, APTT, FERR3 #### [facility] [address] [place] [address] ALP [Catalytic activity/Vol] 81 U/L Normal 38-126 [facility] Comment on above: Performed By: #### H EMOG, CMP3M, CRP2, LDH3, FIBGN, DDI2, APTT, FERR3 #### [facility] [address] [place] [address] ALT [Catalytic activity/Vol] 67 U/L High 0-49 [facility] Comment on above: Result Comment: The ALT test is performed by an updated assay method. Please note that the reference intervals have been changed and are now sex specific. Performed By: #### H EMOG, CMP3M, CRP2, LDH3, FIBGN, DDI2, APTT, FERR3 #### [facility] [address] [place] [address] Anion gap [Moles/Vol] 9 Normal [facility] Comment on above: Performed By: #### H EMOG, CMP3M, CRP2, LDH3, FIBGN, DDI2, APTT, FERR3 #### [facility] [address] [place] [address] AST [Catalytic activity/Vol] 86 U/L High 15-46 [facility] Comment on above: Performed By: #### H EMOG, CMP3M, CRP2, LDH3, FIBGN, DDI2, APTT, FERR3 #### [facility] [address] [place] [address] Calcium [Mass/Vol] 8.5 mg/dL Normal 8.4-10.4 [facility] Comment on above: Performed By: #### H EMOG, CMP3M, CRP2, LDH3, FIBGN, DDI2, APTT, FERR3 #### [facility] [address] [place] [address] CO2 [Moles/Vol] 17 mmol/L Low 22-30 [facility] Comment on above: Performed By: #### H EMOG, CMP3M, CRP2, LDH3, FIBGN, DDI2, APTT, FERR3 #### [facility] [address] [place] [address] Glucose [Mass/Vol] 139 mg/dL High 70-100 [facility] Comment on above: Performed By: #### H EMOG, CMP3M, CRP2, LDH3, FIBGN, DDI2, APTT, FERR3 #### [facility] [address] [place] [address] Protein [Mass/Vol] 5.8 g/dL Low 6.3-8.2 [facility] Comment on above: Performed By: #### H EMOG, CMP3M, CRP2, LDH3, FIBGN, DDI2, APTT, FERR3 #### [facility] [address] [place] [address] Urea nitrogen [Mass/Vol] 31 mg/dL High 7-20 [facility] Comment on above: Performed By: #### H EMOG, CMP3M, CRP2, LDH3, FIBGN, DDI2, APTT, FERR3 #### [facility] [address] [place] [address] Bilirubin [Mass/Vol] 0.5 mg/dL Normal 0.2-1.3 [facility] Comment on above: Performed By: #### H EMOG, CMP3M, CRP2, LDH3, FIBGN, DDI2, APTT, FERR3 #### [facility] [address] [place] [address] Creatinine [Mass/Vol] 2.37 mg/dL High 0.52-1.25 [facility] Comment on above: Performed By: #### H EMOG, CMP3M, CRP2, LDH3, FIBGN, DDI2, APTT, FERR3 #### [facility] [address] [place] [address] GFR/1.73 sq M predicted among blacks MDRD (S/P/Bld) [Vol rate/Area] 33.9 mL/min/{1.73_m2} Abnormal >60 [facility] Comment on above: Performed By: #### H EMOG, CMP3M, CRP2, LDH3, FIBGN, DDI2, APTT, FERR3 #### [facility] [address] [place] [address] GFR/1.73 sq M predicted among non-blacks MDRD (S/P/Bld) [Vol rate/Area] 29.2 mL/min/{1.73_m2} Abnormal >60 [facility] Comment on above: Result Comment: KDIG [...] CRP2, LDH3, FIBGN, DDI2, APTT, FERR3 #### [facility] [address] [place] [address] Potassium [Moles/Vol] 4.3 mmol/L Normal 3.5-5.1 [facility] Comment on above: Performed By: #### H EMOG, CMP3M, CRP2, LDH3, FIBGN, DDI2, APTT, FERR3 #### [facility] [address] [place] [address] Sodium [Moles/Vol] 136 mmol/L Normal 135-145 [facility] Comment on above: Performed By: #### H EMOG, CMP3M, CRP2, LDH3, FIBGN, DDI2, APTT, FERR3 #### [facility] [address] [place] [address] Albumin [Mass/Vol] 3.0 g/dL Low 3.5-5.0 [facility] Comment on above: Performed By: #### H EMOG, CMP3M, CRP2, LDH3, FIBGN, DDI2, APTT, FERR3 #### [facility] [address] [place] [address] Chloride [Moles/Vol] 110 mmol/L High 98-107 [facility] Comment on above: Performed By: #### H EMOG, CMP3M, CRP2, LDH3, FIBGN, DDI2, APTT, FERR3 #### [facility] [address] [place] [address] Comprehensive Metabolic Pane l w/ Reflex to MGon 10-29-2020 Albumin [Mass/Vol] 3.2 g/dL Low 3.5 - 5 g/dL [place] ALP [Catalytic activity/Vol] 71 U/L 38 - 126 U/L [place] ALT [Catalytic activity/Vol] 67 U/L High 0 - 49 U/L [place] Comment on above: The ALT test is perf ormed by an updated assay method. Please note that the reference intervals have been changed and are now sex specific. Anion gap [Moles/Vol] 7 mmol/L [place] AST [Catalytic activity/Vol] 88 U/L High 15 - 46 U/L [place] Bilirubin Ql (U) 0.6 mg/dL 0.2 - 1.3 mg/dL [place] Calcium [Mass/Vol] 8.9 mg/dL 8.4 - 10. 4 mg/dL [place] Chloride [Moles/Vol] 112 mmol/L High 98 - 10 7 mmol/L [place] CO2 [Moles/Vol] 18 mmol/L Low 22 - 30 mmol/L [place] Creatinine [Mass/Vol] 2.24 mg/dL High 0.52 - 1.25 mg/dL [place] EGFR IF NonAfrican [place] 31.3 mL/min Abnormal >60 [place] Comment on above: KDIGO guidelines pro [...] (S/P/Bld) [Vol rate/Area] 36.2 mL/min/{1.73_m2} Abnormal >60 [place] Glucose [Mass/Vol] 132 mg/dL High 70 - 100 mg/dL [place] Interpretation and review of laboratory results Abnormal [place] Potassium [Moles/Vol] 3.9 mmol/L 3.5 - 5.1 mmol/L [place] Protein [Mass/Vol] 6.0 g/dL Low 6.3 - 8.2 g/dL [place] Sodium [Moles/Vol] 137 mmol/L 135 - 145 mmol/L [place] Urea nitrogen [Mass/Vol] 33 mg/dL High 7 - 20 mg/dL [place] Test Performed by [facility], [address] [place], [place] [address] [place] Albumin [Mass/Vol] 3.0 g/dL Low 3.5 - 5 g/dL [place] ALP [Catalytic activity/Vol] 81 U/L 38 - 126 U/L [place] ALT [Catalytic activity/Vol] 67 U/L High 0 - 49 U/L [place] Comment on above: The ALT test is perf ormed by an updated assay method. Please note that the reference intervals have been changed and are now sex specific. Anion gap [Moles/Vol] 9 mmol/L [place] AST [Catalytic activity/Vol] 86 U/L High 15 - 46 U/L [place] Bilirubin Ql (U) 0.5 mg/dL 0.2 - 1.3 mg/dL [place] Calcium [Mass/Vol] 8.5 mg/dL 8.4 - 10. 4 mg/dL [place] Chloride [Moles/Vol] 110 mmol/L High 98 - 10 7 mmol/L [place] CO2 [Moles/Vol] 17 mmol/L Low 22 - 30 mmol/L [place] Creatinine [Mass/Vol] 2.37 mg/dL High 0.52 - 1.25 mg/dL [place] EGFR IF NonAfrican [place] 29.2 mL/min Abnormal >60 [place] Comment on above: KDIGO guidelines pro [...] (S/P/Bld) [Vol rate/Area] 33.9 mL/min/{1.73_m2} Abnormal >60 [place] Glucose [Mass/Vol] 139 mg/dL High 70 - 100 mg/dL [place] Potassium [Moles/Vol] 4.3 mmol/L 3.5 - 5.1 mmol/L [place] Protein [Mass/Vol] 5.8 g/dL Low 6.3 - 8.2 g/dL [place] Sodium [Moles/Vol] 136 mmol/L 135 - 145 mmol/L [place] Urea nitrogen [Mass/Vol] 31 mg/dL High 7 - 20 mg/dL [place] D-Dimer, Innovanceon 12-16-2 020 D-Dimer, [employer] 1.54 mg/L High 0.00-0.50 [facility] Comment on above: Result Comment: Inno quach D-Dimer values of <0.50 mg/L FEU can be used in combination with a pre-test probability model (e.g. Well's) to exclude pulmonary embolism (PE) disease, as well as an aid in the diagnosis of deep vein thrombosis (DVT). Performed By: #### H EMOG, CMP3M, CRP2, LDH3, FIBGN, DDI2, APTT, FERR3 #### [facility] [address] [place] [address] D-Dimer, [employer] 1.23 mg/L High 0.00-0.50 [facility] Comment on above: Result Comment: Inno quach D-Dimer values of <0.50 mg/L FEU can be used in combination with a pre-test probability model (e.g. Well's) to exclude pulmonary embolism (PE) disease, as well as an aid in the diagnosis of deep vein thrombosis (DVT). Performed By: #### H EMOG, CMP3M, CRP2, LDH3, FIBGN, DDI2, APTT, FERR3 #### [facility] [address] [place] [address] D-Dimer, Quantitativeon 12-1 D-Dimer, Quant 1.54 mg/L High 0 - 0.5 mg/L [facility], [place] Comment on above: [employer] D-Dimer va lues of <0.50 mg/L FEU can be used in combination with a pre-test probability model (e.g. Well's) to exclude pulmonary embolism (PE) disease, as well as an aid in the diagnosis of deep vein thrombosis (DVT). D-Dimer, Quant 1.23 mg/L High 0 - 0.5 mg/L [facility], [place] Comment on above: [employer] D-Dimer va lues of <0.50 mg/L FEU can be used in combination with a pre-test probability model (e.g. Well's) to exclude pulmonary embolism (PE) disease, as well as an aid in the diagnosis of deep vein thrombosis (DVT). EKG 12 Lead - Chest Painon 1 2-16-2020 Michel, [facility] Incoming Cardiology Results From [facility] - 10/29/2020 9:41 AM EST [facility] Test Date: 2020-10-28 Pat Name: Reggie León Department: 2A Room: 468 Gender: M Bag Repairer: PARESH : 1965 Requested By: ANDREW SILVER Order Number: [id number] Reading MD: Usama Johnston Intervals Blairs Rate: 85 P: 15 UT: 184 QRS: -12 QRSD: 104 T: 73 QT: 408 QTc: 486 Interpretive Statements SINUS RHYTHM Electronically Signed On 10-29-2020 9:40:09 EST by [facility] Test Date: 2020-10-28 Pat Name: Reggie León Department: 2A Room: 468 Gender: M Bag Repairer: PARESH : 1965 Requested By: ANDREW SILVER Order Number: [id number] Reading MD: Usama Johnston Intervals Blairs Rate: 85 P: 15 UT: 184 QRS: -12 QRSD: 104 T: 73 QT: 408 QTc: 486 Interpretive Statements SINUS RHYTHM Electronically Signed On 10-29-2020 9:40:09 EST by Usama [facility] [place] Ferritinon 10-29-2020 Ferritin [Mass/Vol] 714 ng/mL High 18-464 [facility] Comment on above: Performed By: #### H EMOG, CMP3M, CRP2, LDH3, FIBGN, DDI2, APTT, FERR3 #### [facility] [address] [place] [address] Ferritin [Mass/Vol] 714 ng/mL High 18 - 464 ng/mL [place] Interpretation and review of laboratory results Abnormal [facility] Test Performed by [facility], [address], [place], [place] [address] [place] Fibrinogenon 10-29-2020 Fibrinogen 534 mg/dL High 200-400 [facility] Comment on above: Performed By: #### H EMOG, CMP3M, CRP2, LDH3, FIBGN, DDI2, APTT, FERR3 #### [facility] [address] [place] [address] Fibrinogen 534 mg/dL High 200 - 400 mg/dL [place] Fibrinogen 587 mg/dL High 200-400 [facility] Comment on above: Performed By: #### H EMOG, CMP3M, CRP2, LDH3, FIBGN, DDI2, APTT, FERR3 #### [facility] [address] [place] [address] Fibrinogen 587 mg/dL High 200 - 400 mg/dL [place] Hemogramon 10-29-2020 Erythrocyte distribution width (RBC) [Ratio] 14.2 % Normal 11.5-14.5 [facility] Comment on above: Performed By: #### H EMOG, CMP3M, CRP2, LDH3, FIBGN, DDI2, APTT, FERR3 #### [facility] [address] [place] [id number] Hematocrit (Bld) [Volume fraction] 37.3 % Low 40.0-52.0 [facility] Comment on above: Performed By: #### H EMOG, CMP3M, CRP2, LDH3, FIBGN, DDI2, APTT, FERR3 #### [facility] [address] [place] [address] Hemoglobin (Bld) [Mass/Vol] 12.6 g/dL Low 13.0-18.0 [facility] Comment on above: Performed By: #### H EMOG, CMP3M, CRP2, LDH3, FIBGN, DDI2, APTT, FERR3 #### [facility] [address] [place] [address] MCH (RBC) [Entitic mass] 29.2 pg Normal 26.0-34.0 [facility] Comment on above: Performed By: #### H EMOG, CMP3M, CRP2, LDH3, FIBGN, DDI2, APTT, FERR3 #### [facility] [address] [place] [address] MCHC (RBC) [Mass/Vol] 33.7 % Normal 32.0-36.0 [facility] Comment on above: Performed By: #### H EMOG, CMP3M, CRP2, LDH3, FIBGN, DDI2, APTT, FERR3 #### [facility] [address] [place] [address] MCV (RBC) [Entitic vol] 86.7 fL Normal 80.0-98.0 S [facility] Comment on above: Performed By: #### H EMOG, CMP3M, CRP2, LDH3, FIBGN, DDI2, APTT, FERR3 #### [facility] [address] [place] [id number] Platelet mean volume (Bld) [Entitic vol] 7.6 fL Normal 7.4-10.4 [facility] Comment on above: Performed By: #### H EMOG, CMP3M, CRP2, LDH3, FIBGN, DDI2, APTT, FERR3 #### [facility] [address] [place] [address] Platelets (Bld) [#/Vol] 255 10*3/uL Normal 140-440 [facility] Comment on above: Performed By: #### H EMOG, CMP3M, CRP2, LDH3, FIBGN, DDI2, APTT, FERR3 #### [facility] [address] [place] [address] RBC (Bld) [#/Vol] 4.30 10*6/uL Low 4.40-5.90 [facility] Comment on above: Performed By: #### H EMOG, CMP3M, CRP2, LDH3, FIBGN, DDI2, APTT, FERR3 #### [facility] [address] [place] [address] WBC (Bld) [#/Vol] 7.8 10*3/uL Normal 3.6-10.7 [facility] Comment on above: Performed By: #### H EMOG, CMP3M, CRP2, LDH3, FIBGN, DDI2, APTT, FERR3 #### [facility] [address] [place] [address] Hemogram w/ Autodiffon 10-29 Abs Baso Cnt 0.0 10*3/uL Normal 0.0-0.2 [facility] Comment on above: Performed By: #### H EMOG, CMP3M, CRP2, LDH3, FIBGN, DDI2, APTT, FERR3 #### [facility] [address] [place] [address] Abs Neutrophile Cnt 3.5 10*3/uL Normal 1.8-7.0 [facility] Comment on above: Performed By: #### H EMOG, CMP3M, CRP2, LDH3, FIBGN, DDI2, APTT, FERR3 #### [facility] [address] [place] [address] Basophils/100 WBC (Bld) 0.3 % Normal 0.0-2.0 S [facility] Comment on above: Performed By: #### H EMOG, CMP3M, CRP2, LDH3, FIBGN, DDI2, APTT, FERR3 #### [facility] [address] [place] [address] Eosinophils (Bld) [#/Vol] 0.0 10*3/uL Normal 0.0-0.5 [facility] Comment on above: Performed By: #### H EMOG, CMP3M, CRP2, LDH3, FIBGN, DDI2, APTT, FERR3 #### [facility] [address] [place] [address] Eosinophils/100 WBC (Bld) 0.0 % Low 1.0-6.0 [facility] Comment on above: Performed By: #### H EMOG, CMP3M, CRP2, LDH3, FIBGN, DDI2, APTT, FERR3 #### [facility] [address] [place] [address] Erythrocyte distribution width (RBC) [Ratio] 13.8 % Normal 11.5-14.5 [facility] Comment on above: Performed By: #### H EMOG, CMP3M, CRP2, LDH3, FIBGN, DDI2, APTT, FERR3 #### [facility] [address] [place] [address] Granulocytes/100 WBC (Bld) 79.4 % Normal 40.0-80.0 [facility] Comment on above: Performed By: #### H EMOG, CMP3M, CRP2, LDH3, FIBGN, DDI2, APTT, FERR3 #### [facility] [address] [place] [address] Hematocrit (Bld) [Volume fraction] 36.7 % Low 40.0-52.0 [facility] Comment on above: Performed By: #### H EMOG, CMP3M, CRP2, LDH3, FIBGN, DDI2, APTT, FERR3 #### [facility] [address] [place] [address] Hemoglobin (Bld) [Mass/Vol] 12.2 g/dL Low 13.0-18.0 [facility] Comment on above: Performed By: #### H EMOG, CMP3M, CRP2, LDH3, FIBGN, DDI2, APTT, FERR3 #### [place] [address] [place] [address] Lymphocytes (Bld) [#/Vol] 0.4 10*3/uL Low 1.0-4.3 [facility] Comment on above: Performed By: #### H EMOG, CMP3M, CRP2, LDH3, FIBGN, DDI2, APTT, FERR3 #### [facility] [address] [place] [address] Lymphocytes/100 WBC (Bld) 8.8 % Low 20.0-40.0 [facility] Comment on above: Performed By: #### H EMOG, CMP3M, CRP2, LDH3, FIBGN, DDI2, APTT, FERR3 #### [facility] [address] [place] [address] MCH (RBC) [Entitic mass] 29.1 pg Normal 26.0-34.0 [facility] Comment on above: Performed By: #### H EMOG, CMP3M, CRP2, LDH3, FIBGN, DDI2, APTT, FERR3 #### [facility] [address] [place] [address] MCHC (RBC) [Mass/Vol] 33.1 % Normal 32.0-36.0 [facility] Comment on above: Performed By: #### H EMOG, CMP3M, CRP2, LDH3, FIBGN, DDI2, APTT, FERR3 #### [facility] [address] [place] [address] MCV (RBC) [Entitic vol] 87.8 fL Normal 80.0-98.0 S [facility] Comment on above: Performed By: #### H EMOG, CMP3M, CRP2, LDH3, FIBGN, DDI2, APTT, FERR3 #### [facility] [address] [place] [address] Monocytes (Bld) [#/Vol] 0.5 10*3/uL Normal 0.0-0.8 [facility] Comment on above: Performed By: #### H EMOG, CMP3M, CRP2, LDH3, FIBGN, DDI2, APTT, FERR3 #### [facility] [address] [place] [address] Monocytes/100 WBC (Bld) 11.5 % High 2.0-10.0 S [facility] Comment on above: Performed By: #### H EMOG, CMP3M, CRP2, LDH3, FIBGN, DDI2, APTT, FERR3 #### [facility] [address] [place] [address] Platelet mean volume (Bld) [Entitic vol] 7.9 fL Normal 7.4-10.4 [facility] Comment on above: Performed By: #### H EMOG, CMP3M, CRP2, LDH3, FIBGN, DDI2, APTT, FERR3 #### [facility] [address] [place] [address] Platelets (Bld) [#/Vol] 231 10*3/uL Normal 140-440 [facility] Comment on above: Performed By: #### H EMOG, CMP3M, CRP2, LDH3, FIBGN, DDI2, APTT, FERR3 #### [facility] [address] [place] [address] RBC (Bld) [#/Vol] 4.19 10*6/uL Low 4.40-5.90 [facility] Comment on above: Performed By: #### H EMOG, CMP3M, CRP2, LDH3, FIBGN, DDI2, APTT, FERR3 #### [facility] [address] [place] [address] WBC (Bld) [#/Vol] 4.4 10*3/uL Normal 3.6-10.7 [facility] Comment on above: Performed By: #### H EMOG, CMP3M, CRP2, LDH3, FIBGN, DDI2, APTT, FERR3 #### [facility] [address] [place] [address] LDHon 10-29-2020 LDH 676 U/L High 120-246 [facility] Comment on above: Performed By: #### H EMOG, CMP3M, CRP2, LDH3, FIBGN, DDI2, APTT, FERR3 #### [facility] [address] [place] [address] Lactate Dehydrogenaseon 10-14 LD 676 U/L High 120 - 246 U/L [facility] [place] Lithiumon 10-29-2020 [place] [Moles/Vol] 0.7 mmol/L Normal 0.6-1.2 [facility] Comment on above: Performed By: #### H EMOG, CMP3M, CRP2, LDH3, FIBGN, DDI2, APTT, FERR3 #### [facility] [address] [place] [address] [place] Levelon 10-29-2020 [place] Lvl 0.7 mmol/L 0.6 - 1.2 mmol/L [facility], [place] Otheron 10-29-2020 Interpretation and review of laboratory results Abnormal [facility], [place] Test Performed by [facility], [facility] [address] [place] [id number] [place] [address], [place] Interpretation and review of laboratory results Abnormal [facility], [place] Test Performed by [facility], [address] [place] [id number] [place] [address], [place] Interpretation and review of laboratory results Abnormal [facility], [place] Test Performed by [facility], [address] [place] [address] [place] Procalcitoninon 10-29-2020 Procalcitonin 0.31 ng/mL Abnormal <0.10 [facility] Comment on above: Performed By: #### H EMOG, CMP3M, CRP2, LDH3, FIBGN, DDI2, APTT, FERR3 #### [facility] [employer] [facility] [address] [place] [address] Interpretation and review of laboratory results Abnormal [place] Procalcitonin 0.31 ng/mL Abnormal <0.10 [place] Sodium [Moles/Vol] See Below [place] Comment on above: PCT <0.50 = Low risk of severe sepsis and/or septic shock. PCT >2.00 = High risk of severe sepsis and/or septic shock. Test Performed by [facility], [address] [place] [address] [place], [place] Vit D 25-OH, Totalon 020 Vit D 25-OH, Total 69 ng/mL Normal 30-100 [facility] Comment on above: Result Comment: Ther apy is based on measurement of Total 25-OHD with the following classification levels: Less than 20 ng/mL: Indicative of Vit D deficiency 20-30 ng/mL: Suggests Vit D insufficiency Optimal: Greater than or equal to 30 ng/mL Test performed by [employer] Immunoassay, measuring Total Vitamin D, not individual fractions. Performed By: #### H EMOG, CMP3M, CRP2, LDH3, FIBGN, DDI2, APTT, FERR3 #### [facility] [employer] [facility] [address] [place] [address] Vitamin D 25 Hydroxyon 10-29 Vit D, 25-Hydroxy 69 ng/mL 30 - 100 ng/mL [place] Comment on above: Therapy is based on measurement of Total 25-OHD with the following classification levels: Less than 20 ng/mL: Indicative of Vit D deficiency 20-30 ng/mL: Suggests Vit D insufficiency Optimal: Greater than or equal to 30 ng/mL Test performed by [employer] Competitive Immunoassay, measuring Total Vitamin D, not individual fractions. Test Performed by [facility], [address], [place], [place] [address] [place] Arterial Blood Gas Respirato sarah 10-28-2020 Base Excess -5.8 mmol/L Low -3.0-3.0 [facility] Comment on above: Performed By: #### A BGE #### [facility] [address] [place] [address] CO2 [Moles/Vol] 19.3 mmol/L Low 23.0-27.0 [facility] Comment on above: Performed By: #### A BGE #### [facility] [address] [place] [address] FIO2 21 Normal [facility] Comment on above: Result Comment: Perf ormed by CLIA ID: [id number] [place], [place] Performed By: #### A BGE #### [facility] [address] [place] [address] HCO3 (Bld) [Moles/Vol] 18.3 mmol/L Low 21.0-25.0 S [facility] Comment on above: Performed By: #### A BGE #### [facility] [address] [place] [address] Oxygen (Bld) [Partial pressure] 69.8 mm[Hg] Low 80.0-100.0 [facility] Comment on above: Performed By: #### A BGE #### [facility] [address] [place] [address] Oxygen saturation in Blood 93.6 % Low 95.0-100.0 [facility] Comment on above: Performed By: #### A BGE #### [facility] [address] [place] [address] pCO2 31.2 mm[Hg] Low 35.0-45.0 [facility] Comment on above: Performed By: #### A BGE #### [facility] [address] [place] [address] pH (Bld) 7.376 Normal 7.350-7.45 0 [facility] Comment on above: Performed By: #### A BGE #### [facility] [address] [place] [address] Brain Natriuretic Peptideon 10-28-2020 Natriuretic peptide B (Bld) [Mass/Vol] 47 pg/mL 0 - 125 pg/mL [facility], [place] CR Chest Portableon 10-28-20 20 CR Chest Portable [facility]: [id number] ACCESSION EXAM DATE/TIME PROCEDURE ORDERING PROVIDER [id number] 10/28/2020 15:05 EST CR Chest Portable BALAJI SILVER DANIEL M CPT code 94252 Reason For Exam (CR Chest Portable) dyspnea [...] Transcribed Date and Time: 10/28/2020 3:21 Normal [facility] Comp Metabolic Panelon 10-28 ALP [Catalytic activity/Vol] 82 U/L Normal 38-126 [facility] Comment on above: Performed By: #### H EMOG, CMP3M, CRP2, LDH3, FIBGN, DDI2, APTT, FERR3 #### [facility] [address] [place] [address] ALT [Catalytic activity/Vol] 60 U/L High 0-49 [facility] Comment on above: Result Comment: The ALT test is performed by an updated assay method. Please note that the reference intervals have been changed and are now sex specific. Performed By: #### H EMOG, CMP3M, CRP2, LDH3, FIBGN, DDI2, APTT, FERR3 #### [facility] [address] [place] [address] Calcium [Mass/Vol] 8.6 mg/dL Normal 8.4-10.4 [facility] Comment on above: Performed By: #### H EMOG, CMP3M, CRP2, LDH3, FIBGN, DDI2, APTT, FERR3 #### [facility] [address] [place] [address] Glucose [Mass/Vol] 122 mg/dL High 70-100 [facility] Comment on above: Performed By: #### H EMOG, CMP3M, CRP2, LDH3, FIBGN, DDI2, APTT, FERR3 #### [facility] [address] [place] [address] Protein [Mass/Vol] 6.2 g/dL Low 6.3-8.2 [facility] Comment on above: Performed By: #### H EMOG, CMP3M, CRP2, LDH3, FIBGN, DDI2, APTT, FERR3 #### [facility] [address] [place] [address] Urea nitrogen [Mass/Vol] 35 mg/dL High 7-20 [facility] Comment on above: Performed By: #### H EMOG, CMP3M, CRP2, LDH3, FIBGN, DDI2, APTT, FERR3 #### [facility] [address] [place] [address] Anion gap [Moles/Vol] 9 Normal [facility] Comment on above: Performed By: #### H EMOG, CMP3M, CRP2, LDH3, FIBGN, DDI2, APTT, FERR3 #### [facility] [address] [place] [address] AST [Catalytic activity/Vol] 87 U/L High 15-46 [facility] Comment on above: Performed By: #### H EMOG, CMP3M, CRP2, LDH3, FIBGN, DDI2, APTT, FERR3 #### [facility] [address] [place] [address] Bilirubin [Mass/Vol] 0.6 mg/dL Normal 0.2-1.3 [facility] Comment on above: Performed By: #### H EMOG, CMP3M, CRP2, LDH3, FIBGN, DDI2, APTT, FERR3 #### [facility] [address] [place] [address] CO2 [Moles/Vol] 22 mmol/L Normal 22-30 [facility] Comment on above: Performed By: #### H EMOG, CMP3M, CRP2, LDH3, FIBGN, DDI2, APTT, FERR3 #### [facility] [address] [place] [address] Creatinine [Mass/Vol] 2.96 mg/dL High 0.52-1.25 [facility] Comment on above: Performed By: #### H EMOG, CMP3M, CRP2, LDH3, FIBGN, DDI2, APTT, FERR3 #### [facility] [address] [place] [address] GFR/1.73 sq M predicted among blacks MDRD (S/P/Bld) [Vol rate/Area] 25.9 mL/min/{1.73_m2} Abnormal >60 [facility] Comment on above: Performed By: #### H EMOG, CMP3M, CRP2, LDH3, FIBGN, DDI2, APTT, FERR3 #### [facility] [address] [place] [address] GFR/1.73 sq M predicted among non-blacks MDRD (S/P/Bld) [Vol rate/Area] 22.3 mL/min/{1.73_m2} Abnormal >60 [facility] Comment on above: Result Comment: KDIG [...] CRP2, LDH3, FIBGN, DDI2, APTT, FERR3 #### [facility] [address] [place] [address] Chloride [Moles/Vol] 101 mmol/L Normal 98-107 [facility] Comment on above: Performed By: #### H EMOG, CMP3M, CRP2, LDH3, FIBGN, DDI2, APTT, FERR3 #### [facility] [address] [place] [address] Potassium [Moles/Vol] 3.1 mmol/L Low 3.5-5.1 [facility] Comment on above: Performed By: #### H EMOG, CMP3M, CRP2, LDH3, FIBGN, DDI2, APTT, FERR3 #### [facility] [address] [place] [address] Sodium [Moles/Vol] 133 mmol/L Low 135-145 [facility] Comment on above: Performed By: #### H EMOG, CMP3M, CRP2, LDH3, FIBGN, DDI2, APTT, FERR3 #### [facility] [address] [place] [address] Albumin [Mass/Vol] 3.3 g/dL Low 3.5-5.0 [facility] Comment on above: Performed By: #### H EMOG, CMP3M, CRP2, LDH3, FIBGN, DDI2, APTT, FERR3 #### [facility] [address] [place] [address] Complete Urinalysison 2019 Amorphous Crystal Few Abnormal Negative [facility] Comment on above: Result Comment: . Performed By: #### C UA2 #### [facility] [address] [place] [address] Appearance (U) Clear Normal Clear [facility] Comment on above: Result Comment: . Performed By: #### C UA2 #### [facility] [address] [place] [address] Bacteria LM.HPF (Urine sed) [#/Area] Few Abnormal Negative [facility] Comment on above: Result Comment: . Performed By: #### C UA2 #### [facility] [address] [place] [address] Bilirubin,Urine Negative Normal Negative [facility] Comment on above: Result Comment: . Performed By: #### C UA2 #### [facility] [address] [place] [address] Cast, Granular 0 - 2 Abnormal Negative [facility] Comment on above: Result Comment: . Performed By: #### C UA2 #### [facility] [address] [place] [address] Cast, Hyaline 3 - 5 Abnormal Negative [facility] Comment on above: Result Comment: . Performed By: #### C UA2 #### [facility] [address] [place] [address] Color (U) Yellow Normal Lt. Yellow [facility] Comment on above: Result Comment: . Performed By: #### C UA2 #### [facility] [address] [place] [address] Glucose Ql (U) Normal Normal Normal (<70) [facility] Comment on above: Result Comment: . Performed By: #### C UA2 #### [facility] [address] [place] [address] Ketone,Urine Negative Normal Negative [facility] Comment on above: Result Comment: . Performed By: #### C UA2 #### [facility] [address] [place] [address] Leukocytes,Urine Negative Normal Negative [facility] Comment on above: Result Comment: . Performed By: #### C UA2 #### [facility] [address] [place] [address] Mucous Threads Few Normal Negative [facility] Comment on above: Result Comment: . Performed By: #### C UA2 #### [facility] [address] [place] [address] Nitrites,Urine Negative Normal Negative [facility] Comment on above: Result Comment: . Performed By: #### C UA2 #### [facility] [address] [place] [address] Non-Squamous Epithelial < 1 Abnormal Negative [facility] Comment on above: Result Comment: . Performed By: #### C UA2 #### [facility] [address] [place] [address] Occult Blood,Urine Negative Normal Negative [facility] Comment on above: Result Comment: . Performed By: #### C UA2 #### [facility] [address] [place] [address] pH (U) 5.5 Normal 5.0-8.0 [facility] Comment on above: Result Comment: . Performed By: #### C UA2 #### [facility] [address] [place] [address] Protein (U) [Mass/Vol] 20 mg/dL Abnormal Negative [facility] Comment on above: Result Comment: . Performed By: #### C UA2 #### [facility] [address] [place] [address] RBC LM.HPF (Urine sed) [#/Area] 0 - 2 Normal 0-2 [facility] Comment on above: Result Comment: . Performed By: #### C UA2 #### [facility] [address] [place] [address] Specific [place],Urine 1.015 Normal 1.005 - 1.030 [facility] Comment on above: Result Comment: . Performed By: #### C UA2 #### [facility] [address] [place] [address] Squamous Epithelial 0 - 2 Normal 3-5 [facility] Comment on above: Result Comment: . Performed By: #### C UA2 #### [facility] [address] [place] [address] Urobilinogen,Urine Normal Normal Normal (0-1) [facility] Comment on above: Result Comment: . Performed By: #### C UA2 #### [facility] [address] [place] [address] WBC LM.HPF (Urine sed) [#/Area] 0 - 2 Normal 0-5 [facility] Comment on above: Result Comment: . Performed By: #### C UA2 #### [facility] [address] [place] [address] Comprehensive Metabolic Pane rahul 10-28-2020 Albumin [Mass/Vol] 3.3 g/dL Low 3.5 - 5 g/dL [place] ALP [Catalytic activity/Vol] 82 U/L 38 - 126 U/L [place] ALT [Catalytic activity/Vol] 60 U/L High 0 - 49 U/L [place] Comment on above: The ALT test is perf ormed by an updated assay method. Please note that the reference intervals have been changed and are now sex specific. Anion gap [Moles/Vol] 9 mmol/L [place], [place] AST [Catalytic activity/Vol] 87 U/L High 15 - 46 U/L [place] Bilirubin Ql (U) 0.6 mg/dL 0.2 - 1.3 mg/dL [place] Calcium [Mass/Vol] 8.6 mg/dL 8.4 - 10. 4 mg/dL [place] Chloride [Moles/Vol] 101 mmol/L 98 - 10 7 mmol/L [place] CO2 [Moles/Vol] 22 mmol/L 22 - 30 mmol/L [place] Creatinine [Mass/Vol] 2.96 mg/dL High 0.52 - 1.25 mg/dL [place] EGFR IF NonAfrican Armenian 22.3 mL/min Abnormal >60 [place] Comment on above: KDIGO guidelines pro [...] (S/P/Bld) [Vol rate/Area] 25.9 mL/min/{1.73_m2} Abnormal >60 [place] Glucose [Mass/Vol] 122 mg/dL High 70 - 100 mg/dL [place] Interpretation and review of laboratory results Abnormal [place] Potassium [Moles/Vol] 3.1 mmol/L Low 3.5 - 5.1 mmol/L [place] Protein [Mass/Vol] 6.2 g/dL Low 6.3 - 8.2 g/dL [place] Sodium [Moles/Vol] 133 mmol/L Low 135 - 145 mmol/L [place] Urea nitrogen [Mass/Vol] 35 mg/dL High 7 - 20 mg/dL [place] ED Provider Noteon 0 ED Provider Note Emergency Department Encounter [facility] ED Patient: Reggie León : 1965 Date of Evaluation: 10/28/2020 ED Supervising Physician: Otf Long DO I independently examined and evaluated Reggie León. In brief, Reggie León is a 55 y.o. male that presents to the emergency department with increased shortness of breath from his [facility]. Patient has a known COVID-19 infection. Patient [...] and cough. CELINA spoke with the patient's prison who states that he was on 4 [...] EKG: Sinus rhythm rate 85, QTC 486, UT interval 184, Q wave in lead 3, [...] [employer] Otf Long DO 10/28/20 1823 [facility] ED Provider Note [facility] ED eMERGENCY dEPARTMENT eNCOUnter Pt Name: Reggie [...] file Gets together: Not on file Attends zoroastrianism service: Not on file Active member of [...] History Narrative ? Not on file SCREENINGS @FLOW([id number])@ PHYSICAL EXAM (5+ for level 4, 8+ [...] Department physician in the absence of a equipment man. Please see their accompanying note for interpretation. RADIOLOGY (Per EmergencyPhysician): Interpretation per the Radiologist below, if available at the time of this note: Xr Chest Portable Result Date: 10/28/2020 Patient Name: REGGIE LEÓN Diagnostic Radiology ACCESSION EXAM DATE/TIME PROCEDURE ORDERING PROVIDER [id number] 10/28/2020 15:05 EST CR Chest Portable BALAJI SILVER DANIEL M CPT code 93482 Reason For Exam (CR Chest Portable) dyspnea [...] (*) eGFR 25.9 (*) EGFR IF NonAfrican Armenian 22.3 (*) Albumin,Serum 3.3 (*) Total Protein 6.2 (*) ALT 60 (*) AST 87 (*) All other components within normal limits Narrative: Test Performed by [facility], [facility] [address] [place] [address] CBC WITH AUTO DIFFERENTIAL - Abnormal; Notable for the following components: Hemoglobin 12.9 (*) Hematocrit 38.1 (*) Lymphocyte % 13.6 (*) Monocytes 17.8 (*) Eosinophils 0.8 (*) Absolute Lymph # 0.6 (*) All other components within normal limits Narrative: Test Performed by [facility], [address] [place] [address] POCT ARTERIAL - Abnormal; Notable for the following components: pCO2, Arterial 31.2 (*) pO2, Arterial 69.8 (*) HCO3, Arterial 18.3 (*) Base Excess, Arterial -5.8 (*) O2 Sat, Arterial 93.6 (*) TCO2, Arterial 19.3 (*) All other components within normal limits Narrative: Test Performed by [facility], [facility] [address] [facility]. [place] [address] BRAIN NATRIURETIC PEPTIDE Narrative: Test Performed by [facility], [address] [place], [place] [address] TROPONIN Narrative: Test Performed by [facility], [address] [place], [place] [address] LACTIC ACID, PLASMA Narrative: Test Performed by [facility], [address] [place], [place] [address] URINALYSIS POCT ARTERIAL All other labs were [...] severe and ongoing care. Discussed care with [facility]. Renal function shows chronic kidney disease, unclear [...] Provider NICKI Bustillo CNP 10/28/20 1750 Normal [facility] Hemogram (CBC) w/Auto Diffon 10-28-2020 Absolute Baso # 0.0 10*3/uL 0 - 0.2 10*3/uL [place] Absolute Neut # 3.1 10*3/uL 1.8 - 7 10*3/uL [place] Basophils/100 WBC (Bld) 0.7 % 0 - 2 % [place] Eosinophils (Bld) [#/Vol] 0.0 10*3/uL 0 - 0.5 10*3/uL [place] Eosinophils/100 WBC (Bld) 0.8 % Low 1 - 6 % [place] Erythrocyte distribution width (RBC) [Ratio] 14.0 % 11.5 - 14.5 % [place] Granulocytes/100 WBC (Bld) 67.1 % 40 - 80 % [place] Hematocrit (Bld) [Volume fraction] 38.1 % Low 40 - 52 % [place] Hemoglobin (Bld) [Mass/Vol] 12.9 g/dL Low 13 - 18 g/dL [place] Interpretation and review of laboratory results Abnormal [place] Lymphocytes (Bld) [#/Vol] 0.6 10*3/uL Low 1 - 4.3 10*3/uL [place] Lymphocytes/100 WBC (Bld) 13.6 % Low 20 - 40 % [place] MCH (RBC) [Entitic mass] 29.2 pg 26 - 34 pg [place] MCHC (RBC) [Mass/Vol] 33.9 % 32 - 36 % [place] MCV (RBC) [Entitic vol] 86.2 fL 80 - 98 fL [place] Monocytes (Bld) [#/Vol] 0.8 10*3/uL 0 - 0.8 10*3/uL [place] Monocytes/100 WBC (Bld) 17.8 % High 2 - 10 % [place] Platelet mean volume (Bld) [Entitic vol] 7.4 fL 7.4 - 10.4 fL [place] Platelets (Bld) [#/Vol] 223 10*3/uL 140 - 440 10*3/uL [place] RBC (Bld) [#/Vol] 4.42 10*6/uL 4.4 - 5.9 10*6/uL [place] WBC (Bld) [#/Vol] 4.6 10*3/uL 3.6 - 10.7 10*3/uL [place] Test Performed by [facility], [address] [place] [address] [place] Hemogram w/ Autodiffon 10-28 Abs Baso Cnt 0.0 10*3/uL Normal 0.0-0.2 [facility] Comment on above: Performed By: #### H EMOG, CMP3M, CRP2, LDH3, FIBGN, DDI2, APTT, FERR3 #### [facility] [address] [place] [address] Abs Neutrophile Cnt 3.1 10*3/uL Normal 1.8-7.0 [facility] Comment on above: Performed By: #### H EMOG, CMP3M, CRP2, LDH3, FIBGN, DDI2, APTT, FERR3 #### [facility] [address] [place] [address] Basophils/100 WBC (Bld) 0.7 % Normal 0.0-2.0 [facility] Comment on above: Performed By: #### H EMOG, CMP3M, CRP2, LDH3, FIBGN, DDI2, APTT, FERR3 #### [facility] [address] [place] [address] Eosinophils (Bld) [#/Vol] 0.0 10*3/uL Normal 0.0-0.5 [facility] Comment on above: Performed By: #### H EMOG, CMP3M, CRP2, LDH3, FIBGN, DDI2, APTT, FERR3 #### [facility] [address] [place] [address] Eosinophils/100 WBC (Bld) 0.8 % Low 1.0-6.0 [facility] Comment on above: Performed By: #### H EMOG, CMP3M, CRP2, LDH3, FIBGN, DDI2, APTT, FERR3 #### [facility] [address] [place] [address] Erythrocyte distribution width (RBC) [Ratio] 14.0 % Normal 11.5-14.5 [facility] Comment on above: Performed By: #### H EMOG, CMP3M, CRP2, LDH3, FIBGN, DDI2, APTT, FERR3 #### [facility] [address] [place] [address] Granulocytes/100 WBC (Bld) 67.1 % Normal 40.0-80.0 [facility] Comment on above: Performed By: #### H EMOG, CMP3M, CRP2, LDH3, FIBGN, DDI2, APTT, FERR3 #### [facility] [address] [place] [address] Hematocrit (Bld) [Volume fraction] 38.1 % Low 40.0-52.0 [facility] Comment on above: Performed By: #### H EMOG, CMP3M, CRP2, LDH3, FIBGN, DDI2, APTT, FERR3 #### [facility] [address] [place] [address] Hemoglobin (Bld) [Mass/Vol] 12.9 g/dL Low 13.0-18.0 [facility] Comment on above: Performed By: #### H EMOG, CMP3M, CRP2, LDH3, FIBGN, DDI2, APTT, FERR3 #### [facility] [address] [place] [address] Lymphocytes (Bld) [#/Vol] 0.6 10*3/uL Low 1.0-4.3 [facility] Comment on above: Performed By: #### H EMOG, CMP3M, CRP2, LDH3, FIBGN, DDI2, APTT, FERR3 #### [facility] [address] [place] [address] Lymphocytes/100 WBC (Bld) 13.6 % Low 20.0-40.0 [facility] Comment on above: Performed By: #### H EMOG, CMP3M, CRP2, LDH3, FIBGN, DDI2, APTT, FERR3 #### [facility] [address] [place] [address] MCH (RBC) [Entitic mass] 29.2 pg Normal 26.0-34.0 [facility] Comment on above: Performed By: #### H EMOG, CMP3M, CRP2, LDH3, FIBGN, DDI2, APTT, FERR3 #### [facility] [address] [place] [address] MCHC (RBC) [Mass/Vol] 33.9 % Normal 32.0-36.0 [facility] Comment on above: Performed By: #### H EMOG, CMP3M, CRP2, LDH3, FIBGN, DDI2, APTT, FERR3 #### [facility] [address] [place] [address] MCV (RBC) [Entitic vol] 86.2 fL Normal 80.0-98.0 S [facility] Comment on above: Performed By: #### H EMOG, CMP3M, CRP2, LDH3, FIBGN, DDI2, APTT, FERR3 #### [place] [address] [place] [address] Monocytes (Bld) [#/Vol] 0.8 10*3/uL Normal 0.0-0.8 [facility] Comment on above: Performed By: #### H EMOG, CMP3M, CRP2, LDH3, FIBGN, DDI2, APTT, FERR3 #### [facility] [address] [place] [address] Monocytes/100 WBC (Bld) 17.8 % High 2.0-10.0 S [facility] Comment on above: Performed By: #### H EMOG, CMP3M, CRP2, LDH3, FIBGN, DDI2, APTT, FERR3 #### [facility] [address] [place] [address] Platelet mean volume (Bld) [Entitic vol] 7.4 fL Normal 7.4-10.4 [facility] Comment on above: Performed By: #### H EMOG, CMP3M, CRP2, LDH3, FIBGN, DDI2, APTT, FERR3 #### [facility] [address] [place] [address] Platelets (Bld) [#/Vol] 223 10*3/uL Normal 140-440 [facility] Comment on above: Performed By: #### H EMOG, CMP3M, CRP2, LDH3, FIBGN, DDI2, APTT, FERR3 #### [facility] [address] [place] [address] RBC (Bld) [#/Vol] 4.42 10*6/uL Normal 4.40-5.90 [facility] Comment on above: Performed By: #### H EMOG, CMP3M, CRP2, LDH3, FIBGN, DDI2, APTT, FERR3 #### [facility] [address] [place] [address] WBC (Bld) [#/Vol] 4.6 10*3/uL Normal 3.6-10.7 [facility] Comment on above: Performed By: #### H EMOG, CMP3M, CRP2, LDH3, FIBGN, DDI2, APTT, FERR3 #### [facility] [address] [place] [address] Lactic Acidon 10-28-2020 Lactate [Moles/Vol] 1.6 mmol/L Normal 0.7-2.0 [facility] Comment on above: Performed By: #### H EMOG, CMP3M, CRP2, LDH3, FIBGN, DDI2, APTT, FERR3 #### [facility] [address] [place] [address] Lactic Acid, Plasmaon 2019 Lactate [Moles/Vol] 1.6 mmol/L 0.7 - 2 mmol/L [facility], [place] NT pro BNPon 10-28-2020 Natriuretic peptide B (Bld) [Mass/Vol] 47 pg/mL Normal 0-125 [facility] Comment on above: Performed By: #### H EMOG, CMP3M, CRP2, LDH3, FIBGN, DDI2, APTT, FERR3 #### [facility] [address] [place] [address] Otheron 10-28-2020 Test Performed by [facility], [address] [place] [address] [place] Test Performed by [facility], [address] [place], [place] [id number] [place] [address] POCT Arterialon 10-28-2020 Base Excess, Arterial -5.8 mmol/L Low -3 - 3 mmol/L [place] HCO3, Arterial 18.3 mmol/L Low 21 - 25 mmol/L [place] Interpretation and review of laboratory results Abnormal [place] Oxygen saturation in Blood 93.6 % Low 95 - 100 % [place] pCO2, Arterial 31.2 mm[Hg] Low 35 - 45 mm[Hg] [place] pH, Arterial 7.376 [place] pO2, Arterial 69.8 mm[Hg] Low 80 - 100 mm[Hg] [place] Sodium [Moles/Vol] 21 mmol/L [place] Comment on above: Performed by BHUPENDRAIA ID : [id number] [place], [place] TCO2, Arterial 19.3 mmol/L Low 23 - 27 mmol/L [place] Test Performed by [facility], [address] [place], [place] [address] [place] [address] Procalcitoninon 10-28-2020 Interpretation See Below Normal [facility] Comment on above: Result Comment: PCT <0.50 = Low risk of severe sepsis and/or septic shock. PCT >2.00 = High risk of severe sepsis and/or septic shock. Performed By: #### H EMOG, CMP3M, CRP2, LDH3, FIBGN, DDI2, APTT, FERR3 #### [facility] [address] [place] [address] Respiratory Panel, Molecular , with COVID-19 (Restricted: peds pts or suitable admitted adults)on 10-28-2020 Respiratory Panel Molecular, with COVID NEGATIVE: No targets were detected by the [employer] Upper Respiratory Pathogens PCR Panel. _ Expected Result: Not Detected The [employer] Upper Respiratory Pathogens PCR Panel can detect [...] management decisions. This assay was developed by [employer] and distributed under an Emergency Use Authorization (EUA) granted by the FDA for the qualitative detection of SARS-CoV-2 nucleic acid. Provider and patient fact sheets can be found at https://www.fda.gov/media/ 540347/download and https://www.fda.gov/media/ 391949/download. [place] Test Performed by [facility], [address] [place] [address] [place] Troponin Ion 10-28-2020 Troponin I.cardiac [Mass/Vol] ng/mL Normal 0.000-0.03 4 [facility] Comment on above: Result Comment: . Performed By: #### H EMOG, CMP3M, CRP2, LDH3, FIBGN, DDI2, APTT, FERR3 #### [facility] [address] [place] [address] Troponin x1on 10-28-2020 Troponin I.cardiac [Mass/Vol] ng/mL 0 - 0.034 ng/mL [place] Comment on above: . Urinalysison 10-28-2020 AMORPHOUS CRYSTAL Few Abnormal Negative /[HPF] [place] Comment on above: . Appearance (U) Clear Clear NA [place] Comment on above: . Bacteria, UA Few Abnormal Negative /[HPF] [place] Comment on above: . Bilirubin Urine Negative Negative mg/dL [place] Comment on above: . Color (U) Yellow Lt. Yellow NA [place] Comment on above: . Glucose, Ur Normal Normal (<70) mg/dL [place] Comment on above: . Granular Casts, UA 0-2 Abnormal Negative /[LPF] [place] Comment on above: . Hyaline Casts, UA 3-5 Abnormal Negative /[LPF] [place] Comment on above: . Interpretation and review of laboratory results Abnormal [place] Ketones Ql (U) Negative Negative mg/dL [place] Comment on above: . LEUKOCYTES, UA Negative Negative Mary/uL [place] Comment on above: . Mucous Threads Few Negative /[LPF] [place] Comment on above: . Nitrite, Urine Negative Negative NA [place] Comment on above: . Non-Squamous Epithelial <1 Abnormal Nega tive /[HPF] [place] Comment on above: . Occult Blood,Urine Negative Negative mg/dL [place] Comment on above: . pH (U) 5.5 [pH] [place] Comment on above: . Protein (U) [Mass/Vol] 20 mg/dL Abnormal Negative [place] Comment on above: . RBC (U) [#/Vol] 0-2 0 - 2 /[HPF] [place] Comment on above: . Specific [place], Urine 1.015 [place] Comment on above: . Squam Epithel, UA 0-2 3 - 5 /[HPF] [place] Comment on above: . Urobilinogen, Urine Normal Normal (0-1) mg/dL [place] Comment on above: . WBC, UA 0-2 0 - 5 /[HPF] [place] Comment on above: . Test Performed by [facility], [address], [place], [place] [address] [place] XR CHEST PORTABLEon 10-28-20 20 [place], [facility] Incoming Radiology Results From [facility] - 10/28/2020 3:21 PM EST Patient Name: REGGIE LEÓN Diagnostic Radiology ACCESSION EXAM DATE/TIME PROCEDURE ORDERING PROVIDER [id number] 10/28/2020 15:05 EST CR Chest Portable BALAJI SILVER DANIEL M CPT code 27108 Reason For Exam (CR Chest Portable) dyspnea [...] JOHN Transcribed Date and Time: 10/28/2020 3:21 [place] Patient Name: REGGIE WILSON Diagnostic Radiology ACCESSION EXAM DATE/TIME PROCEDURE ORDERING PROVIDER [id number] 10/28/2020 15:05 EST CR Chest Portable BALAJI SILVER DANIEL M CPT code 58649 Reason For Exam (CR Chest Portable) dyspnea [...] JOHN Transcribed Date and Time: 10/28/2020 3:21 [facility] with eGFRon 05-05-2020 Age - Reported 54 years Normal [facility] Comment on above: Performed By: #### 2 08852 #### [facility],[address] [place] [address] Anion gap [Moles/Vol] 11 mmol/L Normal 10 - 20 [facility] Comment on above: Performed By: #### 2 23147 #### [facility],[address] [place] [address] Calcium [Mass/Vol] 9.5 mg/dL Normal 8.6 - 10.2 [facility] Comment on above: Performed By: #### 2 88992 #### [facility],[address] [place] [address] CO2 [Moles/Vol] 24.7 mmol/L Normal 21.0 - 31.0 [facility] Comment on above: Performed By: #### 2 38234 #### [facility],[address] [place] [address] GFR/1.73 sq M predicted among non-blacks MDRD (S/P/Bld) [Vol rate/Area] 27 ML/MINUTE Low 60 - 999 [facility] Comment on above: Performed By: #### 2 65122 #### [facility],[address] [place] [address] GFR/1.73 sq M predicted among non-blacks MDRD (S/P/Bld) [Vol rate/Area] 33 ML/MINUTE Low 60 - 999 [facility] Comment on above: Result Comment: ACCO RDING TO THE NATIONAL KIDNEY DISEASE EDUCATION PROGRAM(NKDE), A NORMAL eGFR IS A VALUE GREATER THAN OR EQUAL TO 60 ML/MIN/1.73 SQ METERS. CHRONIC KIDNEY DISEASE: <60mL/MIN/1.73 SQ METERS KIDNEY FAILURE: <15mL/MIN/1.73 SQ METERS THIS TEST SHOULD ONLY BE USED FOR PATIENTS 18 YEARS OF AGE AND OLDER. Performed By: #### 2 78233 #### [address] [address] GFR/1.73 sq M predicted among non-blacks MDRD (S/P/Bld) [Vol rate/Area] Normal [facility] Comment on above: Result Comment: BASI C METABOLIC PANEL Performed By: #### 2 59935 #### [address] [address] Glucose [Mass/Vol] 113 mg/dL High 74 - 106 [facility] Comment on above: Performed By: #### 2 03906 #### [address] [address] Potassium [Moles/Vol] 4.1 mmol/L Normal 3.5 - 5.1 [facility] Comment on above: Performed By: #### 2 80821 #### [address] [address] Urea nitrogen [Mass/Vol] 24 mg/dL High 6 - 20 [facility] Comment on above: Performed By: #### 2 55417 #### [address] [address] CBC + DIFFon 05-05-2020 Basophils (Bld) [#/Vol] 0.10 x10EE3/UL Normal 0. 00 - 0.10 [facility] Comment on above: Performed By: #### 2 86999 #### [facility],[address] [place] [address] Basophils/100 WBC (Bld) 0.9 % Normal 0.0 - 2.0 [facility] Comment on above: Performed By: #### 2 46589 #### [facility],[address] [place], [place] [id number] CBC + DIFF Normal [facility] Comment on above: Result Comment: CBC- COMPLETE BLOOD COUNT Performed By: #### 2 16715 #### [facility],[address] [place], [place] [address] Eosinophils (Bld) [#/Vol] 0.40 x10EE3/UL Normal 0.00 - 0.50 [facility] Comment on above: Performed By: #### 2 77769 #### [facility],[address] [place] [address] Eosinophils/100 WBC (Bld) 5.4 % Normal 0.0 - 7.0 [facility] Comment on above: Performed By: #### 2 16148 #### [facility],[address] [place] [address] Erythrocyte distribution width (RBC) [Ratio] 12.7 % Normal 12.0 - 15.6 [facility] Comment on above: Performed By: #### 2 85737 #### [facility],[address] [place], [place] [address] Hematocrit (Bld) [Volume fraction] 37.0 % Low 40.0 - 52.0 [facility] Comment on above: Performed By: #### 2 26877 #### [facility],[address] [place] [address] Hemoglobin (Bld) [Mass/Vol] 13.0 g/dL Normal 13.0 - 17.5 [facility] Comment on above: Performed By: #### 2 44851 #### [facility],[address] [place] [address] Lymphocytes (Bld) [#/Vol] 1.50 x10EE3/UL Normal 0.80 - 2.80 [facility] Comment on above: Performed By: #### 2 44266 #### [facility],[address] [place] [address] Lymphocytes/100 WBC (Bld) 18.7 % Low 20.0 - 45.0 [facility] Comment on above: Performed By: #### 2 72589 #### [facility],[address] [place] [address] MANUAL DIFF N/A Normal [facility] Comment on above: Performed By: #### 2 15836 #### [facility],[address] [place] [address] MCH (RBC) [Entitic mass] 31 pg Normal 27 - 33 [facility] Comment on above: Performed By: #### 2 82740 #### [facility],[address] [place] [address] MCHC (RBC) [Mass/Vol] 35 X10 3 Normal 32 - 36 [facility] Comment on above: Performed By: #### 2 79862 #### [facility],[address] [place] [address] MCV (RBC) [Entitic vol] 87 fL Normal 81 - 98 [facility] Comment on above: Performed By: #### 2 34970 #### [facility],[address] [place] [address] Monocytes (Bld) [#/Vol] 1.20 x10EE3/UL High 0. 20 - 1.00 [facility] Comment on above: Performed By: #### 2 11960 #### [facility],[address] [place] [address] MONOS % 14.8 % High 0.0 - 10.0 [facility] Comment on above: Performed By: #### 2 88866 #### [facility],[address] [place] [address] Morphology Crispin (Bld) [Interp] N/A Normal [facility] Comment on above: Performed By: #### 2 08707 #### [facility],[address] [place] [address] Neutrophils (Bld) [#/Vol] 4.80 x10EE3/UL Normal 1.50 - 7.10 [facility] Comment on above: Performed By: #### 2 50561 #### [facility],[address] [place] [address] Neutrophils/100 WBC (Bld) 60.2 % Normal 46.0 - 76.0 [facility] Comment on above: Performed By: #### 2 55709 #### [facility],[address] [place] [address] Platelet mean volume (Bld) [Entitic vol] 7.2 fL Normal 6.4 - 10.5 [facility] Comment on above: Result Comment: AUTO MATED DIFFERENTIAL Performed By: #### 2 42841 #### [address] [address] Platelets (Bld) [#/Vol] 286 x10EE3/UL Normal 150 - 450 [facility] Comment on above: Performed By: #### 2 46636 #### [facility],[address] [place] [address] RBC (Bld) [#/Vol] 4.24 x 10EE6/UL Low 4.50 - 6.00 [facility] Comment on above: Performed By: #### 2 62743 #### [facility],[address] [place] [address] WBC (Bld) [#/Vol] 8.0 x 10EE3/UL Normal 4.5 - 10.8 [facility] Comment on above: Performed By: #### 2 84437 #### [address],[place] [address] CULTURE URINEon 05-05-2020 CULTURE URINE CULTURE URINE _URINE CULTURE_ M I C R O B I O L O G Y R E P O R T FINAL ------- Antimicrobial Susceptibility and Organism Identification Report -------- Specimen Number : [id number] Requested : 05/05/20 Specimen Source : URINE Collected : 05/05/20 03:00 Arredondo of Isolation : MEME HUANG Received : 05/05/20 03:00 Requesting Physician : FLORECITA -- Patient/Specimen Tests and Comments Specimen Comments -------- -------- FINAL REPORT: NO GROWTH AT 48 HOURS -- Tech : Source : URINE ID # : [id number] FINAL Report Date : / / : Collected : 05/05/20 03:00 05/07/20.1244.KLS. 05/06/20.0705.JLN. 05/07/[email or web address].COMPLETE Normal [facility] Comment on above: Performed By: #### 2 42337 #### [facility],[address] [place] [address] LITHIUMon 05-05-2020 [place] [Moles/Vol] 0.9 mmol/L Normal 0.6 - 1.2 [facility] Comment on above: Performed By: #### 2 17433 #### [facility],[address] [place] [address] RENAL FUNCTION PANELon 05-05 Albumin [Mass/Vol] 3.3 g/dL Low 3.4 - 4.8 [facility] Comment on above: Performed By: #### 2 38974 #### [facility],[address] [place] [address] B/C RATIO 10 ratio Normal 0 - 30 [facility] Comment on above: Performed By: #### 2 77527 #### [facility],[address] [place] [address] Chloride [Moles/Vol] 107 mmol/L Normal 98 - 107 [facility] Comment on above: Performed By: #### 2 18229 #### [facility],[address] [place] [address] Creatinine [Mass/Vol] 2.5 mg/dL High 0.7 - 1.3 [facility] Comment on above: Performed By: #### 2 82067 #### [facility],[address],[place] [address] Phosphate [Mass/Vol] 4.9 mg/dL Normal 2.7 - 4.9 [facility] Comment on above: Performed By: #### 2 02621 #### [facility],[address] [place] [address] RENAL FUNCTION PANEL Normal [facility] Comment on above: Result Comment: JESSICA L FUNCTION PANEL Performed By: #### 2 65971 #### [facility],[address] [place] [address] Sodium [Moles/Vol] 139 mmol/L Normal 136 - 145 [facility] Comment on above: Performed By: #### 2 53196 #### [facility],[address] [place] [address] URINALYSISon 05-05-2020 Bilirubin [Mass/Vol] Negative Normal NORMAL: NEGATIVE [facility] Comment on above: Performed By: #### 2 10109 #### [facility],[address] [place] [address] Blood Negative Normal NORMAL: NEGATIVE [facility] Comment on above: Performed By: #### 2 53951 #### [facility],[address] [place] [address] Clarity (U) clear Normal NORMAL: CLEAR [facility] Comment on above: Performed By: #### 2 73803 #### [facility],[address] [place] [address] Color (U) yellow Normal NORMAL: YELLOW [facility] Comment on above: Performed By: #### 2 84386 #### [facility],[address] [place] [address] 37915 Glucose [Mass/Vol] NORM Normal NORMAL: NORMAL [facility] Comment on above: Performed By: #### 2 03297 #### [facility],[address] [place] [address] 70570 Ketone Negative Normal NORMAL: NEGATIVE [facility] Comment on above: Performed By: #### 2 90025 #### [facility],[address] [place] [address] Microscopic NOT INDICATED Normal [facility] Comment on above: Performed By: #### 2 50433 #### [facility],[address] [place], [place] [id number] Nitrite Ql (U) Negative Normal NORMAL: NEGATIVE [facility] Comment on above: Performed By: #### 2 56550 #### [facility],[address] [place] [address] pH (Bld) 6 Normal NORMAL: 5.0-8.0 [facility] Comment on above: Performed By: #### 2 19359 #### [facility],[address] [place] [address] Protein (U) [Mass/Vol] Negative Normal JENN L: NEGATIVE [facility] Comment on above: Performed By: #### 2 91524 #### [facility],[address] [place] [address] Sp [place] 1.020 Normal NORMAL: 1.010-1.03 0 [facility] Comment on above: Performed By: #### 2 27865 #### [facility],[address] [place] [address] Specimen type Nom (Spec) UNSPECIFIED Normal [facility] Comment on above: Performed By: #### 2 46418 #### [facility],[address] [place], [place] [id number] Urobilinog NORM Normal NORMAL: NORMAL [facility] Comment on above: Performed By: #### 2 67930 #### [facility],[address] [place] [address] WBC (Bld) [#/Vol] Negative Normal NORMAL: NEGATIVE [facility] Comment on above: Performed By: #### 2 64763 #### [facility],[address] [place] [address] CBC + DIFFon 04-08-2020 Basophils (Bld) [#/Vol] 0.10 x10EE3/UL Normal 0. 00 - 0.10 [facility] Comment on above: Performed By: #### 2 60902 ####[facility],[address] [place] [address] 58717 Basophils/100 WBC (Bld) 1.2 % Normal 0.0 - 2.0 [facility] Comment on above: Performed By: #### 2 01051 ####[facility],[address] [place] [address] CBC + DIFF Normal [facility] Comment on above: Result Comment: CBC- COMPLETE BLOOD COUNT Performed By: #### 2 62077 ####[facility],[address] [place] [address] Eosinophils (Bld) [#/Vol] 0.40 x10EE3/UL Normal 0.00 - 0.50 [facility] Comment on above: Performed By: #### 2 74403 ####[facility],[address] [place] [address] 37286 Eosinophils/100 WBC (Bld) 4.3 % Normal 0.0 - 7.0 [facility] Comment on above: Performed By: #### 2 34443 ####[facility],[address] [place] [address] Erythrocyte distribution width (RBC) [Ratio] 12.9 % Normal 12.0 - 15.6 [facility] Comment on above: Performed By: #### 2 63742 ####[facility],[address] [place] [address] Hematocrit (Bld) [Volume fraction] 38.7 % Low 40.0 - 52.0 [facility] Comment on above: Performed By: #### 2 34271 ####[facility],[address] [place], [place] [id number] Hemoglobin (Bld) [Mass/Vol] 13.4 g/dL Normal 13.0 - 17.5 [facility] Comment on above: Performed By: #### 2 34372 ####[facility],[address] [place] [address] 14628 Lymphocytes (Bld) [#/Vol] 1.80 x10EE3/UL Normal 0.80 - 2.80 [facility] Comment on above: Performed By: #### 2 09947 ####[facility],[address] [place], [place] [id number] Lymphocytes/100 WBC (Bld) 21.9 % Normal 20.0 - 45.0 [facility] Comment on above: Performed By: #### 2 09937 ####[facility],[address] [place], [place] [id number] MANUAL DIFF N/A Normal [facility] Comment on above: Performed By: #### 2 01660 ####[facility],[address] [place], [place] [id number] MCH (RBC) [Entitic mass] 31 pg Normal 27 - 33 [facility] Comment on above: Performed By: #### 2 86998 ####[facility],[address] [place] [address] 26033 MCHC (RBC) [Mass/Vol] 35 X10 3 Normal 32 - 36 [facility] Comment on above: Performed By: #### 2 05413 ####[facility],[address] [place] [address] 54217 MCV (RBC) [Entitic vol] 88 fL Normal 81 - 98 [facility] Comment on above: Performed By: #### 2 07151 ####[address] [address] Monocytes (Bld) [#/Vol] 1.20 x10EE3/UL High 0. 20 - 1.00 [facility] Comment on above: Performed By: #### 2 37450 ####[facility],[address] [place] [address] 09497 MONOS % 14.1 % High 0.0 - 10.0 [facility] Comment on above: Performed By: #### 2 74649 ####[facility],[address] [place] [address] 53136 Morphology Crispin (Bld) [Interp] N/A Normal [facility] Comment on above: Performed By: #### 2 80000 ####[facility],[address] [place] [address] 95431 Neutrophils (Bld) [#/Vol] 4.90 x10EE3/UL Normal 1.50 - 7.10 [facility] Comment on above: Performed By: #### 2 43707 ####[address] [address] Neutrophils/100 WBC (Bld) 58.5 % Normal 46.0 - 76.0 [facility] Comment on above: Performed By: #### 2 67889 ####[facility],[address] [place] [address] 01375 Platelet mean volume (Bld) [Entitic vol] 7.4 fL Normal 6.4 - 10.5 [facility] Comment on above: Result Comment: AUTO MATED DIFFERENTIAL Performed By: #### 2 28786 ####[address] [address] Platelets (Bld) [#/Vol] 268 x10EE3/UL Normal 150 - 450 [facility] Comment on above: Performed By: #### 2 64784 ####[facility],[address] [place] [address] 87586 RBC (Bld) [#/Vol] 4.41 x 10EE6/UL Low 4.50 - 6.00 [facility] Comment on above: Performed By: #### 2 35686 ####[address] [address] WBC (Bld) [#/Vol] 8.3 x 10EE3/UL Normal 4.5 - 10.8 Gerald gregg [facility] Comment on above: Performed By: #### 2 88880 ####Johan [facility],[address] [place] [address] 52392 CULTURE URINEon 04-08-2020 CULTURE URINE CULTURE URINE _URINE CULTURE_ M I C R O B I O L O G Y R E P O R T FINAL ------- Antimicrobial Susceptibility and Organism Identification Report -------- Specimen Number : [id number] Requested : 04/08/20 Specimen Source : CLEAN CATCH URINE Collected : 04/08/20 06:28 Arredondo of Isolation : MEME HUANG Received : 04/08/20 06:28 Requesting Physician : FLORECITA -- Patient/Specimen Tests and Comments Specimen Comments -------- -------- FINAL REPORT: NO GROWTH AT 48 HOURS -- Tech : Source : CLEAN CATCH URINE ID # : [id number] FINAL Report Date : / / : Collected : 04/08/20 06:28 04/10/20.1059.BKO. 04/09/20.1214.KLS. 04/10/20.1059.BKO.COMPLETE Normal [facility] Comment on above: Performed By: #### 2 51690 #### [place] [address] HEPATIC FUNCTION PANELon Albumin [Mass/Vol] 3.4 g/dL Normal 3.4 - 4.8 [facility] Comment on above: Performed By: #### 2 40041 ####[facility],[address] [place] [address] Performed By: #### 2 02499 ####[address] [address] ALK PHOS 65 U/L Normal 38 - 126 [facility] Comment on above: Performed By: #### 2 56816 ####[address] [address] ALT/SGPT 16 U/L Normal 10 - 40 [facility] Comment on above: Performed By: #### 2 24889 ####[facility],[address] [place] [address] 48204 AST/SGOT 10 U/L Low 13 - 39 [facility] Comment on above: Performed By: #### 2 81278 ####[place] [id number] Bilirubin [Mass/Vol] 0.4 mg/dL Normal 0.0 - 1.5 [facility] Comment on above: Performed By: #### 2 03821 ####[facility],[address] [place] [address] 62277 Bilirubin.direct [Mass/Vol] 0.1 mg/dL Normal 0.0 - 0.1 [facility] Comment on above: Performed By: #### 2 10973 ####[facility],[address] [place] [address] 07284 HEPATIC FUNCTION PANEL Normal [facility] Comment on above: Result Comment: HEPA TIC FUNCTION PROFILE Performed By: #### 2 39238 ####[facility],[address] [place] [address] 30352 Protein [Mass/Vol] 5.4 g/dL Low 6.4 - 8.3 [facility] Comment on above: Performed By: #### 2 53363 ####[facility],[address] [place] [address] 47404 LITHIUMon 04-08-2020 [place] [Moles/Vol] 0.7 mmol/L Normal 0.6 - 1.2 [facility] Comment on above: Performed By: #### 2 67984 ####[facility],[address] [place] [address] 91491 RENAL FUNCTION PANELon 04-08 B/C RATIO 11 ratio Normal 0 - 30 [facility] Comment on above: Performed By: #### 2 43997 ####[facility],[address] [place] [address] 84616 Calcium [Mass/Vol] 9.5 mg/dL Normal 8.6 - 10.2 [facility] Comment on above: Performed By: #### 2 88392 ####[facility],[address] [place] [address] 85251 Chloride [Moles/Vol] 105 mmol/L Normal 98 - 107 [facility] Comment on above: Performed By: #### 2 04979 ####[facility],[address] [place] [address] 64859 CO2 [Moles/Vol] 25.4 mmol/L Normal 21.0 - 31.0 [facility] Comment on above: Performed By: #### 2 30313 ####[facility],[address] [place] [address] 27874 Creatinine [Mass/Vol] 2.1 mg/dL High 0.7 - 1.3 [facility] Comment on above: Performed By: #### 2 08022 ####[facility],[address] [place] [address] 76571 Glucose [Mass/Vol] 105 mg/dL Normal 74 - 106 [facility] Comment on above: Performed By: #### 2 62187 ####[facility],[address] [place] [address] 69020 Phosphate [Mass/Vol] 5.2 mg/dL High 2.7 - 4.9 [facility] Comment on above: Performed By: #### 2 21327 ####[facility],[address] [place] [address] 69724 Potassium [Moles/Vol] 3.8 mmol/L Normal 3.5 - 5.1 [facility] Comment on above: Performed By: #### 2 54590 ####[facility],[address] [place] [address] 06891 RENAL FUNCTION PANEL Normal [facility] Comment on above: Result Comment: JESSICA L FUNCTION PANEL Performed By: #### 2 59751 ####[facility],[address] [place] [address] 16999 Sodium [Moles/Vol] 139 mmol/L Normal 136 - 145 [facility] Comment on above: Performed By: #### 2 30814 ####[facility],[address] [place] [address] 85620 Urea nitrogen [Mass/Vol] 23 mg/dL High 6 - 20 [facility] Comment on above: Performed By: #### 2 81338 ####[facility],[address] [place] [address] 54024 URINALYSISon 04-08-2020 Bilirubin [Mass/Vol] Negative Normal NORMAL: NEGATIVE [facility] Comment on above: Performed By: #### 2 72448 #### [facility],[address] [place] [address] 00276 Blood Negative Normal NORMAL: NEGATIVE [facility] Comment on above: Performed By: #### 2 41156 #### [facility],[address] [place] [address] 84634 Clarity (U) clear Normal NORMAL: CLEAR [facility] Comment on above: Performed By: #### 2 51024 #### [facility],[address] [place], [place] [id number] Color (U) p.yel Normal NORMAL: YELLOW [facility] Comment on above: Performed By: #### 2 07219 #### [facility],[address] [place] [address] 23333 Glucose [Mass/Vol] NORM Normal NORMAL: NORMAL [facility] Comment on above: Performed By: #### 2 38246 #### [facility],[address] [place] [address] 17155 Ketone Negative Normal NORMAL: NEGATIVE [facility] Comment on above: Performed By: #### 2 02172 #### [facility],[address] [place] [address] 02697 Microscopic NOT INDICATED Normal [facility] Comment on above: Performed By: #### 2 22563 #### [facility],[address] [place] [address] 82133 Nitrite Ql (U) Negative Normal NORMAL: NEGATIVE [facility] Comment on above: Performed By: #### 2 19541 #### [facility],[address] [place] [address] pH (Bld) 6 Normal NORMAL: 5.0-8.0 [facility] Comment on above: Performed By: #### 2 61731 #### [facility],[address] [place] [address] Protein (U) [Mass/Vol] Negative Normal JENN L: NEGATIVE [facility] Comment on above: Performed By: #### 2 21763 #### [facility],[address] [place] [address] Sp [place] 1.020 Normal NORMAL: 1.010-1.03 0 [facility] Comment on above: Performed By: #### 2 64761 #### [facility],[address] [place] [address] Specimen type Nom (Spec) Clean catch Normal [facility] Comment on above: Performed By: #### 2 72717 #### [facility],[address] [place] [address] Urobilinog NORM Normal NORMAL: NORMAL [facility] Comment on above: Performed By: #### 2 43907 #### [facility],[address] [place], [place] [phone] WBC (Bld) [#/Vol] Negative Normal NORMAL: NEGATIVE [facility] Comment on above: Performed By: #### 2 94861 #### [facility],[address] [place] [address] URINE CREATININE AND PROTEIN RATIOon 04-08-2020 CREATININE UR 146.3 mg/dl Normal [facility] Comment on above: Performed By: #### 2 27893 ####[facility],[address] [place], [place] [address] PC RATIO 0.06 mg/dL Normal 0.00 - 10.00 [facility] Comment on above: Performed By: #### 2 53111 ####[facility],[address] [place], [place] [id number] Protein (U) [Mass/Vol] 9.00 mg/dL Normal 0.00 - 10.00 [facility] Comment on above: Performed By: #### 2 77236 ####[facility],[address] [place] [address] 23275 HGB A1C [CCL]on 03-18-2020 HbA1c (Bld) [Mass fraction] 117 mg/dL Normal [facility] Comment on above: Result Comment: eAG: (Estimated average glucose) is a calculated value from HgbA1c and is human resources hr representative of the average blood glucose level in the last 2-3 month period. [facility] [address] [place] [address] Dre Gilliland III, M.D. [id number] Performed By: #### 2 17115 ####[address] [address] HbA1c (Bld) [Mass fraction] 5.7 % High 4.3-5.6 [facility] Comment on above: Result Comment: Amer [place] Diabetes Association guidelines indicate that patients with HgbA1c in the range 5.7-6.4% are at increased risk for development of diabetes, and intervention by lifestyle modification may be beneficial. HgbA1c greater or equal to 6.5% is considered diagnostic of diabetes. Performed By: #### 2 24081 ####[address] [address] Hemoglobin A1con 03-18-2020 HbA1c (Bld) [Mass fraction] 5.7 % High 4.3-5.6 [facility] Comment on above: Performed By: #### H BA1C #### [facility]ine [facility] [address] [place] [id number] HbA1c (Bld) [Mass fraction] 117 mg/dL Normal [facility] Comment on above: Performed By: #### H BA1C #### [facility] [address] [place], [place] [address] LIPID PROFILEon 03-17-2020 Cholesterol [Mass/Vol] 133 mg/dL Normal 0 - 200 [facility] Comment on above: Performed By: #### 2 41943 ####[facility],[address] [place] [address] 54326 Cholesterol in HDL [Mass/Vol] 29 mg/dL Low 40 - 60 [facility] Comment on above: Performed By: #### 2 49236 ####[facility],[address] [place] [address] 84452 Cholesterol in LDL [Mass/Vol] 59 mg/dL Normal 0 - 129 [facility] Comment on above: Performed By: #### 2 91819 ####[facility],[address] [place] [address] 02710 Cholesterol.total/Choles terol in HDL [Mass ratio] 4.6 {ratio} Normal 0.0 - 5.0 [facility] Comment on above: Performed By: #### 2 09479 ####[facility],[address] [place] [address] 09946 Lipid 1996 panel Normal [facility] Comment on above: Result Comment: LIPI D PROFILE Performed By: #### 2 88983 ####[facility],[address] [place] [address] 00381 Triglyceride [Mass/Vol] 224 mg/dL High 0 - 150 [facility] Comment on above: Performed By: #### 2 71476 ####[facility],[address] [place] [address] 33235 TSHon 03-17-2020 TSH Qn 0.99 uIU/ml Normal 0.34 - 5.60 [facility] Comment on above: Performed By: #### 2 85051 ####[facility],[address] [place] [address] 22941 URINE CREATININE AND PROTEIN RATIOon 03-11-2020 CREATININE UR 65.8 mg/dl Normal [facility] Comment on above: Performed By: #### 2 16438 ####[facility],[address] [place] [address] 73272 PC RATIO 0.06 mg/dL Normal 0.00 - 10.00 [facility] Comment on above: Performed By: #### 2 44755 ####[facility],[address] [place] [address] 14815 Protein (U) [Mass/Vol] mg/dL Normal 0.00 - 10.00 [facility] Comment on above: Performed By: #### 2 76651 ####[facility],[address] [place], [place] [id number] CBC + DIFFon 03-10-2020 Basophils (Bld) [#/Vol] 0.10 x10EE3/UL Normal 0. 00 - 0.10 [facility] Comment on above: Performed By: #### 2 86507 #### [address] [address] Basophils/100 WBC (Bld) 1.3 % Normal 0.0 - 2.0 [facility] Comment on above: Performed By: #### 2 65090 #### [facility],[address] [place] [address] CBC + DIFF Normal [facility] Comment on above: Result Comment: CBC- COMPLETE BLOOD COUNT Performed By: #### 2 70975 #### [address] [address] Eosinophils (Bld) [#/Vol] 0.40 x10EE3/UL Normal 0.00 - 0.50 [facility] Comment on above: Performed By: #### 2 93309 #### [facility],[address] [place] [address] 75457 Eosinophils/100 WBC (Bld) 5.7 % Normal 0.0 - 7.0 [facility] Comment on above: Performed By: #### 2 50542 #### [place] [id number] Erythrocyte distribution width (RBC) [Ratio] 13.3 % Normal 12.0 - 15.6 [facility] Comment on above: Performed By: #### 2 12708 #### [facility],[address] [place] [address] Hematocrit (Bld) [Volume fraction] 40.4 % Normal 40.0 - 52.0 [facility] Comment on above: Performed By: #### 2 16939 #### [facility],[address] [place], [place] [id number] Hemoglobin (Bld) [Mass/Vol] 13.8 g/dL Normal 13.0 - 17.5 [facility] Comment on above: Performed By: #### 2 21243 #### [facility],[address] [place], [place] [address] Lymphocytes (Bld) [#/Vol] 1.30 x10EE3/UL Normal 0.80 - 2.80 [facility] Comment on above: Performed By: #### 2 93290 #### [facility],[address] [place], [place] [address] Lymphocytes/100 WBC (Bld) 20.1 % Normal 20.0 - 45.0 [facility] Comment on above: Performed By: #### 2 21127 #### [facility],[address] [place] [address] 84925 MANUAL DIFF N/A Normal [facility] Comment on above: Performed By: #### 2 43315 #### [facility],[address] [place] [address] 66852 MCH (RBC) [Entitic mass] 30 pg Normal 27 - 33 [facility] Comment on above: Performed By: #### 2 96739 #### [facility],[address] [place] [address] 28456 MCHC (RBC) [Mass/Vol] 34 X10 3 Normal 32 - 36 [facility] Comment on above: Performed By: #### 2 57049 #### [facility],[address] [place] [address] 85410 MCV (RBC) [Entitic vol] 88 fL Normal 81 - 98 [facility] Comment on above: Performed By: #### 2 68252 #### [facility],[address] [place] [address] 19516 Monocytes (Bld) [#/Vol] 0.90 x10EE3/UL Normal 0. 20 - 1.00 [facility] Comment on above: Performed By: #### 2 32686 #### [facility],[address] [place] [address] 81656 MONOS % 13.7 % High 0.0 - 10.0 [facility] Comment on above: Performed By: #### 2 13793 #### [facility],[address] [place] [address] 47352 Morphology Crispin (Bld) [Interp] N/A Normal [facility] Comment on above: Performed By: #### 2 82864 #### [facility],[address] [place] [address] 99433 Neutrophils (Bld) [#/Vol] 3.80 x10EE3/UL Normal 1.50 - 7.10 [facility] Comment on above: Performed By: #### 2 78604 #### [facility],[address] [place] [address] 57700 Neutrophils/100 WBC (Bld) 59.2 % Normal 46.0 - 76.0 [facility] Comment on above: Performed By: #### 2 65490 #### [facility],[address] [place] [address] 76706 Platelet mean volume (Bld) [Entitic vol] 7.8 fL Normal 6.4 - 10.5 [facility] Comment on above: Result Comment: AUTO MATED DIFFERENTIAL Performed By: #### 2 55171 #### [facility],[address] [place] [address] 17567 Platelets (Bld) [#/Vol] 291 x10EE3/UL Normal 150 - 450 [facility] Comment on above: Performed By: #### 2 01627 #### [facility],[address] [place] [address] 30075 RBC (Bld) [#/Vol] 4.57 x 10EE6/UL Normal 4.50 - 6.00 [facility] Comment on above: Performed By: #### 2 06809 #### [facility],[address] [place] [address] 06504 WBC (Bld) [#/Vol] 6.4 x 10EE3/UL Normal 4.5 - 10.8 [facility] Comment on above: Performed By: #### 2 18304 #### [facility],[address] [place] [address] 36472 LITHIUMon 03-10-2020 [place] [Moles/Vol] 0.8 mmol/L Normal 0.6 - 1.2 [facility] Comment on above: Performed By: #### 2 50698 #### [facility],[address] [place] [address] 22979 RENAL FUNCTION PANEL WITH eG FRon 03-10-2020 Age - Reported 54 years Normal [facility] Comment on above: Performed By: #### 2 92404 ####[facility],[address] [place] [address] 37306 Albumin [Mass/Vol] 3.5 g/dL Normal 3.4 - 4.8 [facility] Comment on above: Performed By: #### 2 97659 ####[facility],[address] [place] [address] 24645 B/C RATIO 8 ratio Normal 0 - 30 [facility] Comment on above: Performed By: #### 2 69650 ####[facility],[address] [place] [address] 01835 Calcium [Mass/Vol] 9.4 mg/dL Normal 8.6 - 10.2 [facility] Comment on above: Performed By: #### 2 46403 ####[facility],[address] [place] [address] 41108 Chloride [Moles/Vol] 106 mmol/L Normal 98 - 107 [facility] Comment on above: Performed By: #### 2 07972 ####[facility],[address] [place] [address] 39875 CO2 [Moles/Vol] 26.1 mmol/L Normal 21.0 - 31.0 [facility] Comment on above: Performed By: #### 2 73742 ####[facility],[address] [place] [address] 82758 Creatinine [Mass/Vol] 2.5 mg/dL High 0.7 - 1.3 [facility] Comment on above: Performed By: #### 2 15213 ####[facility],[address] [place] [address] 24365 GFR/1.73 sq M predicted among non-blacks MDRD (S/P/Bld) [Vol rate/Area] 33 ML/MINUTE Low 60 - 999 [facility] Comment on above: Result Comment: ACCO RDING TO THE NATIONAL KIDNEY DISEASE EDUCATION PROGRAM(NKDE), A NORMAL eGFR IS A VALUE GREATER THAN OR EQUAL TO 60 ML/MIN/1.73 SQ METERS. CHRONIC KIDNEY DISEASE: <60mL/MIN/1.73 SQ METERS KIDNEY FAILURE: <15mL/MIN/1.73 SQ METERS THIS TEST SHOULD ONLY BE USED FOR PATIENTS 18 YEARS OF AGE AND OLDER. Performed By: #### 2 [id number] ####[facility],[address] [place] [address] 91961 GFR/1.73 sq M predicted among non-blacks MDRD (S/P/Bld) [Vol rate/Area] 27 ML/MINUTE Low 60 - 999 [facility] Comment on above: Performed By: #### 2 99484 ####[facility],[address] [place] [address] 97294 Glucose [Mass/Vol] 114 mg/dL High 74 - 106 [facility] Comment on above: Performed By: #### 2 09296 ####[facility],[address] [place] [address] 12242 Phosphate [Mass/Vol] 4.6 mg/dL Normal 2.7 - 4.9 [facility] Comment on above: Performed By: #### 2 52930 ####[facility],[address] [place] [address] 55862 Potassium [Moles/Vol] 3.9 mmol/L Normal 3.5 - 5.1 [facility] Comment on above: Performed By: #### 2 76362 ####[facility],[address] [place] [address] 96034 RENAL FUNCTION PANEL WITH eGFR Normal [facility] Comment on above: Result Comment: JESSICA L FUNCTION PANEL Performed By: #### 2 40385 ####[facility],[address] [place] [address] 68059 Sodium [Moles/Vol] 139 mmol/L Normal 136 - 145 [facility] Comment on above: Performed By: #### 2 91401 ####[facility],[address] [place] [address] 16544 Urea nitrogen [Mass/Vol] 21 mg/dL High 6 - 20 [facility] Comment on above: Performed By: #### 2 87747 ####[facility],[address] [place] [address] 32266 CBC + DIFFon 02-04-2020 Basophils (Bld) [#/Vol] 0.10 x10EE3/UL Normal 0. 00 - 0.10 [facility] Comment on above: Performed By: #### 2 36077 #### [address] [address] Basophils/100 WBC (Bld) 1.3 % Normal 0.0 - 2.0 [facility] Comment on above: Performed By: #### 2 00634 #### [facility],[address] [place] [address] CBC + DIFF Normal [facility] Comment on above: Result Comment: CBC- COMPLETE BLOOD COUNT Performed By: #### 2 50577 #### [facility],[address] [place], [place] [id number] Eosinophils (Bld) [#/Vol] 0.40 x10EE3/UL Normal 0.00 - 0.50 [facility] Comment on above: Performed By: #### 2 77443 #### [facility],[address] [place], [place] [id number] Eosinophils/100 WBC (Bld) 5.6 % Normal 0.0 - 7.0 [facility] Comment on above: Performed By: #### 2 36952 #### [facility],[address] [place] [address] Erythrocyte distribution width (RBC) [Ratio] 13.2 % Normal 12.0 - 15.6 [facility] Comment on above: Performed By: #### 2 87354 #### [facility],[address] [place], [place] [id number] Hematocrit (Bld) [Volume fraction] 38.7 % Low 40.0 - 52.0 [facility] Comment on above: Performed By: #### 2 68303 #### [facility],[address] [place] [address] 10942 Hemoglobin (Bld) [Mass/Vol] 13.2 g/dL Normal 13.0 - 17.5 [facility] Comment on above: Performed By: #### 2 78408 #### [facility],[address] [place], [place] [id number] Lymphocytes (Bld) [#/Vol] 1.40 x10EE3/UL Normal 0.80 - 2.80 [facility] Comment on above: Performed By: #### 2 04810 #### [facility],[address] [place] [address] 86464 Lymphocytes/100 WBC (Bld) 18.1 % Low 20.0 - 45.0 [facility] Comment on above: Performed By: #### 2 32465 #### [facility],[address] [place] [address] 54075 MANUAL DIFF N/A Normal [facility] Comment on above: Performed By: #### 2 35269 #### [facility],[address] [place] [address] 87275 MCH (RBC) [Entitic mass] 30 pg Normal 27 - 33 [facility] Comment on above: Performed By: #### 2 04815 #### [facility],[address] [place] [address] 97337 MCHC (RBC) [Mass/Vol] 34 X10 3 Normal 32 - 36 [facility] Comment on above: Performed By: #### 2 56125 #### [facility],[address] [place] [address] 59718 MCV (RBC) [Entitic vol] 88 fL Normal 81 - 98 [facility] Comment on above: Performed By: #### 2 54530 #### [facility],[address] [place] [address] 49618 Monocytes (Bld) [#/Vol] 1.10 x10EE3/UL High 0. 20 - 1.00 [facility] Comment on above: Performed By: #### 2 39030 #### [facility],[address] [place] [address] 89220 MONOS % 13.6 % High 0.0 - 10.0 [facility] Comment on above: Performed By: #### 2 24700 #### [facility],[address] [place] [address] 38035 Morphology Crispin (Bld) [Interp] N/A Normal [facility] Comment on above: Performed By: #### 2 40858 #### [facility],[address] [place] [address] 48150 Neutrophils (Bld) [#/Vol] 4.80 x10EE3/UL Normal 1.50 - 7.10 [facility] Comment on above: Performed By: #### 2 37744 #### [facility],[address] [place] [address] 48445 Neutrophils/100 WBC (Bld) 61.4 % Normal 46.0 - 76.0 [facility] Comment on above: Performed By: #### 2 44684 #### [facility],[address] [place] [address] 12275 Platelet mean volume (Bld) [Entitic vol] 7.7 fL Normal 6.4 - 10.5 [facility] Comment on above: Result Comment: AUTO MATED DIFFERENTIAL Performed By: #### 2 12058 #### [facility],[address] [place] [address] 93487 Platelets (Bld) [#/Vol] 298 x10EE3/UL Normal 150 - 450 [facility] Comment on above: Performed By: #### 2 66172 #### [facility],[address] [place] [address] 17509 RBC (Bld) [#/Vol] 4.40 x 10EE6/UL Low 4.50 - 6.00 [facility] Comment on above: Performed By: #### 2 19288 #### [facility],[address] [place] [address] 68869 WBC (Bld) [#/Vol] 7.8 x 10EE3/UL Normal 4.5 - 10.8 [facility] Comment on above: Performed By: #### 2 22312 #### [facility],[address] [place] [address] 97197 CULTURE URINEon 02-04-2020 CULTURE URINE CULTURE URINE _URINE CULTURE_ M I C R O B I O L O G Y R E P O R T FINAL ------- Antimicrobial Susceptibility and Organism Identification Report -------- Specimen Number : [id number] Requested : 02/04/20 Specimen Source : URINE Collected : 02/04/20 02:50 Ar[place]ondo of Isolation : MEME HUANG Received : 02/04/20 02:50 Requesting Physician : FLORECITA -- Patient/Specimen Tests and Comments Specimen Comments -------- -------- FINAL REPORT: NO GROWTH AT 48 HOURS -- Tech : Source : URINE ID # : [id number] FINAL Report Date : / / : Collected : 02/04/20 02:50 02/06/20.1209.VIVIANA. 02/05/20.0910.SAIGE. 02/06/20.1209.KLS.COMPLETE Normal [facility] Comment on above: Performed By: #### 2 99747 #### [facility],[address] [place] [address] RENAL FUNCTION PANEL WITH eG FRon 02-04-2020 Age - Reported 54 years Normal [facility] Comment on above: Performed By: #### 2 51407 #### [facility],[address] [place] [address] Albumin [Mass/Vol] 3.5 g/dL Normal 3.4 - 4.8 [facility] Comment on above: Performed By: #### 2 63221 #### [facility],[address] [place], [place] [id number] B/C RATIO 9 ratio Normal 0 - 30 [facility] Comment on above: Performed By: #### 2 27826 #### [facility],[address] [place], [place] [address] Calcium [Mass/Vol] 9.4 mg/dL Normal 8.6 - 10.2 [facility] Comment on above: Performed By: #### 2 47089 #### [facility],[address] [place], [place] [address] Chloride [Moles/Vol] 107 mmol/L Normal 98 - 107 [facility] Comment on above: Performed By: #### 2 73159 #### [facility],[address] [place] [address] 09519 CO2 [Moles/Vol] 25.6 mmol/L Normal 21.0 - 31.0 [facility] Comment on above: Performed By: #### 2 29217 #### [facility],[address] [place] [address] 39061 Creatinine [Mass/Vol] 2.4 mg/dL High 0.7 - 1.3 [facility] Comment on above: Performed By: #### 2 87609 #### [facility],[address] [place] [address] 87227 GFR/1.73 sq M predicted among non-blacks MDRD (S/P/Bld) [Vol rate/Area] 28 ML/MINUTE Low 60 - 999 [facility] Comment on above: Performed By: #### 2 70410 #### [facility],[address] [place] [address] 13414 GFR/1.73 sq M predicted among non-blacks MDRD (S/P/Bld) [Vol rate/Area] 34 ML/MINUTE Low 60 - 999 [facility] Comment on above: Result Comment: ACCO RDING TO THE NATIONAL KIDNEY DISEASE EDUCATION PROGRAM(NKDE), A NORMAL eGFR IS A VALUE GREATER THAN OR EQUAL TO 60 ML/MIN/1.73 SQ METERS. CHRONIC KIDNEY DISEASE: <60mL/MIN/1.73 SQ METERS KIDNEY FAILURE: <15mL/MIN/1.73 SQ METERS THIS TEST SHOULD ONLY BE USED FOR PATIENTS 18 YEARS OF AGE AND OLDER. Performed By: #### 2 89806 #### [facility],[address] [place] [address] 29915 Glucose [Mass/Vol] 114 mg/dL High 74 - 106 [facility] Comment on above: Performed By: #### 2 35453 #### [facility],[address] [place] [address] 86240 Phosphate [Mass/Vol] 4.5 mg/dL Normal 2.7 - 4.9 [facility] Comment on above: Performed By: #### 2 67536 #### [facility],[address] [place] [address] 33173 Potassium [Moles/Vol] 3.8 mmol/L Normal 3.5 - 5.1 [facility] Comment on above: Performed By: #### 2 03701 #### [facility],[address] [place] [address] 17795 RENAL FUNCTION PANEL WITH eGFR Normal [facility] Comment on above: Result Comment: JESSICA L FUNCTION PANEL Performed By: #### 2 46564 #### [facility],[address] [place], [place] [id number] Sodium [Moles/Vol] 139 mmol/L Normal 136 - 145 [facility] Comment on above: Performed By: #### 2 03053 #### [facility],[address] [place], [place] [id number] Urea nitrogen [Mass/Vol] 22 mg/dL High 6 - 20 [facility] Comment on above: Performed By: #### 2 33762 #### [facility],[address] [place], [place] [id number] URINALYSISon 02-04-2020 Amorphous NONE Normal [facility] Comment on above: Performed By: #### 2 90497 #### [facility],[address] [place], [place] [id number] Bacteria LM.HPF (Urine sed) [#/Area] NONE Normal [facility] Comment on above: Performed By: #### 2 86759 #### [facility],[address] [place] [address] 52977 Bilirubin [Mass/Vol] Negative Normal NORMAL: NEGATIVE [facility] Comment on above: Performed By: #### 2 71217 #### [facility],[address] [place] [address] 30873 Blood Negative Normal NORMAL: NEGATIVE [facility] Comment on above: Performed By: #### 2 36175 #### [facility],[address] [place] [address] 93481 Casts LM.LPF (Urine sed) [#/Area] NONE Normal [facility] Comment on above: Performed By: #### 2 25808 #### [facility],[address] [place] [address] 18143 Clarity (U) clear Normal NORMAL: CLEAR [facility] Comment on above: Performed By: #### 2 97037 #### [facility],[address] [place] [address] 62111 Color (U) yellow Normal NORMAL: YELLOW [facility] Comment on above: Performed By: #### 2 11163 #### [facility],[address] [place] [address] 64661 Crystals LM Nom (Urine sed) NONE Normal [facility] Comment on above: Performed By: #### 2 55934 #### [facility],[address] [place] [address] 52155 Epi Cells NONE Normal [facility] Comment on above: Performed By: #### 2 43563 #### [facility],[address] [place] [address] 05869 Glucose [Mass/Vol] NORM Normal NORMAL: NORMAL [facility] Comment on above: Performed By: #### 2 61902 #### [facility],[address] [place] [address] 79201 Ketone Negative Normal NORMAL: NEGATIVE [facility] Comment on above: Performed By: #### 2 06708 #### [facility],[address] [place] [address] 76128 Microscopic SEE BELOW Normal [facility] Comment on above: Result Comment: MICR OSCOPIC Performed By: #### 2 41282 #### [facility],[address] [place] [address] 41955 Mucous NONE Normal [facility] Comment on above: Performed By: #### 2 31421 #### [facility],[address] [place] [address] 25141 Nitrite Ql (U) Negative Normal NORMAL: NEGATIVE [facility] Comment on above: Performed By: #### 2 96352 #### [facility],[address] [place] [address] 89486 pH (Bld) 6 Normal NORMAL: 5.0-8.0 [facility] Comment on above: Performed By: #### 2 79019 #### [facility],[address] [place] [address] 68827 Protein (U) [Mass/Vol] Negative Normal JENN L: NEGATIVE [facility] Comment on above: Performed By: #### 2 32517 #### [facility],[address] [place] [address] 13358 Rbc NONE Normal 0-3/hpf [facility] Comment on above: Performed By: #### 2 78698 #### [facility],[address] [place] [address] Sp [place] 1.015 Normal NORMAL: 1.010-1.03 0 [facility] Comment on above: Performed By: #### 2 52389 #### [facility],[address] [place] [address] Specimen type Nom (Spec) Clean catch Normal [facility] Comment on above: Performed By: #### 2 90291 #### [facility],[address] [place] [address] Urobilinog NORM Normal NORMAL: NORMAL [facility] Comment on above: Performed By: #### 2 58484 #### [facility],[address] [place], [place] [id number] Wbc 1-5 Normal 0-5/hpf [facility] Comment on above: Performed By: #### 2 49768 #### [facility],[address] [place], [place] [address] WBC (Bld) [#/Vol] 25 Abnormal NORMAL: NEGATIVE [facility] Comment on above: Performed By: #### 2 15190 #### [facility],[address] [place], [place] [id number] Yeast LM Ql (Urine sed) NONE Normal [facility] Comment on above: Performed By: #### 2 30218 #### [facility],[address] [place] [address] 46982 URINE CREATININE AND PROTEIN RATIOon 02-04-2020 CREATININE UR 143.6 mg/dl Normal [facility] Comment on above: Performed By: #### 2 24133 #### [facility],[address] [place], [place] [address] PC RATIO 0.05 mg/dL Normal 0.00 - 10.00 [facility] Comment on above: Performed By: #### 2 39285 #### [facility],[address] [place] [address] 26784 Protein (U) [Mass/Vol] 7.00 mg/dL Normal 0.00 - 10.00 [facility] Comment on above: Performed By: #### 2 34586 #### [facility],[address] [place] [address] 84677 ALBUMIN PLASMAon 01-07-2020 Albumin [Mass/Vol] 3.7 g/dL Normal 3.4 - 4.8 [facility] Comment on above: Performed By: #### 2 46850 #### [facility],[address] [place] [address] 62892 BMP with eGFRon 01-07-2020 Age - Reported 54 years Normal [facility] Comment on above: Performed By: #### 2 80589 #### [facility],[address] [place] [address] 63134 Anion gap [Moles/Vol] 13 mmol/L Normal 10 - 20 [facility] Comment on above: Performed By: #### 2 39597 #### [facility],[address] [place] [address] 10907 Calcium [Mass/Vol] 9.3 mg/dL Normal 8.6 - 10.2 [facility] Comment on above: Performed By: #### 2 92017 #### [facility],[address] [place] [address] 59279 Chloride [Moles/Vol] 108 mmol/L High 98 - 107 [facility] Comment on above: Performed By: #### 2 36031 #### [facility],[address] [place] [address] 09044 CO2 [Moles/Vol] 26.1 mmol/L Normal 21.0 - 31.0 [facility] Comment on above: Performed By: #### 2 65800 #### [facility],[address] [place] [address] 62084 Creatinine [Mass/Vol] 2.0 mg/dL High 0.7 - 1.3 [facility] Comment on above: Performed By: #### 2 33498 #### [facility],[address] [place] [address] 50798 GFR/1.73 sq M predicted among non-blacks MDRD (S/P/Bld) [Vol rate/Area] Normal [facility] Comment on above: Result Comment: BASI C METABOLIC PANEL Performed By: #### 2 77542 #### [facility],[address] [place] [address] 78975 GFR/1.73 sq M predicted among non-blacks MDRD (S/P/Bld) [Vol rate/Area] 42 ML/MINUTE Low 60 - 999 [facility] Comment on above: Result Comment: ACCO RDING TO THE NATIONAL KIDNEY DISEASE EDUCATION PROGRAM(NKDE), A NORMAL eGFR IS A VALUE GREATER THAN OR EQUAL TO 60 ML/MIN/1.73 SQ METERS. CHRONIC KIDNEY DISEASE: <60mL/MIN/1.73 SQ METERS KIDNEY FAILURE: <15mL/MIN/1.73 SQ METERS THIS TEST SHOULD ONLY BE USED FOR PATIENTS 18 YEARS OF AGE AND OLDER. Performed By: #### 2 43639 #### [facility],[address] [place] [address] 22717 GFR/1.73 sq M predicted among non-blacks MDRD (S/P/Bld) [Vol rate/Area] 35 ML/MINUTE Low 60 - 999 [facility] Comment on above: Performed By: #### 2 24990 #### [facility],[address] [place] [address] 54012 Glucose [Mass/Vol] 99 mg/dL Normal 74 - 106 [facility] Comment on above: Performed By: #### 2 78817 #### [facility],[address] [place] [address] 93608 Potassium [Moles/Vol] 3.8 mmol/L Normal 3.5 - 5.1 [facility] Comment on above: Performed By: #### 2 35174 #### [facility],[address] [place] [address] 26281 Sodium [Moles/Vol] 143 mmol/L Normal 136 - 145 [facility] Comment on above: Performed By: #### 2 11281 #### [facility],[address] [place] [address] 60768 Urea nitrogen [Mass/Vol] 22 mg/dL High 6 - 20 [facility] Comment on above: Performed By: #### 2 12969 #### [facility],[address] [place] [address] 58387 CBC + DIFFon 01-07-2020 Basophils (Bld) [#/Vol] 0.10 x10EE3/UL Normal 0. 00 - 0.10 [facility] Comment on above: Performed By: #### 2 08942 #### [facility],[address] [place] [address] 13754 Basophils/100 WBC (Bld) 1.0 % Normal 0.0 - 2.0 [facility] Comment on above: Performed By: #### 2 24929 #### [facility],[address] [place] [address] 35868 CBC + DIFF Normal [facility] Comment on above: Result Comment: CBC- COMPLETE BLOOD COUNT Performed By: #### 2 46035 #### [address] [address] Eosinophils (Bld) [#/Vol] 0.30 x10EE3/UL Normal 0.00 - 0.50 [facility] Comment on above: Performed By: #### 2 19449 #### [facility],[address] [place] [address] 53952 Eosinophils/100 WBC (Bld) 3.3 % Normal 0.0 - 7.0 [facility] Comment on above: Performed By: #### 2 03877 #### [facility],[address] [place] [address] Erythrocyte distribution width (RBC) [Ratio] 13.1 % Normal 12.0 - 15.6 [facility] Comment on above: Performed By: #### 2 23477 #### [facility],[address] [place] [address] Hematocrit (Bld) [Volume fraction] 39.0 % Low 40.0 - 52.0 [facility] Comment on above: Performed By: #### 2 23664 #### [facility],[address] [place] [address] Hemoglobin (Bld) [Mass/Vol] 13.4 g/dL Normal 13.0 - 17.5 [facility] Comment on above: Performed By: #### 2 78089 #### [place] [address] Lymphocytes (Bld) [#/Vol] 1.90 x10EE3/UL Normal 0.80 - 2.80 [facility] Comment on above: Performed By: #### 2 00322 #### [facility],[address] [place] [address] Lymphocytes/100 WBC (Bld) 20.6 % Normal 20.0 - 45.0 [facility] Comment on above: Performed By: #### 2 41585 #### [facility],[address] [place], [place] [id number] MANUAL DIFF N/A Normal [facility] Comment on above: Performed By: #### 2 62686 #### [place] [id number] MCH (RBC) [Entitic mass] 30 pg Normal 27 - 33 [facility] Comment on above: Performed By: #### 2 74201 #### [place] [id number] MCHC (RBC) [Mass/Vol] 34 X10 3 Normal 32 - 36 [facility] Comment on above: Performed By: #### 2 58785 #### [facility],[address] [place] [address] 16824 MCV (RBC) [Entitic vol] 88 fL Normal 81 - 98 [facility] Comment on above: Performed By: #### 2 12404 #### [facility],[address] [place] [address] 21507 Monocytes (Bld) [#/Vol] 0.90 x10EE3/UL Normal 0. 20 - 1.00 [facility] Comment on above: Performed By: #### 2 84081 #### [facility],[address] [place] [address] 16316 MONOS % 10.0 % Normal 0.0 - 10.0 [facility] Comment on above: Performed By: #### 2 76548 #### [facility],[address] [place], [place] [id number] Morphology Crispin (Bld) [Interp] N/A Normal [facility] Comment on above: Performed By: #### 2 33142 #### [facility],[address] [place] [address] 04092 Neutrophils (Bld) [#/Vol] 5.90 x10EE3/UL Normal 1.50 - 7.10 [facility] Comment on above: Performed By: #### 2 94484 #### [facility],[address] [place] [address] 27562 Neutrophils/100 WBC (Bld) 65.1 % Normal 46.0 - 76.0 [facility] Comment on above: Performed By: #### 2 18092 #### [facility],[address] [place] [address] Platelet mean volume (Bld) [Entitic vol] 7.7 fL Normal 6.4 - 10.5 [facility] Comment on above: Result Comment: AUTO MATED DIFFERENTIAL Performed By: #### 2 95965 #### [facility],[address] [place] [address] 21863 Platelets (Bld) [#/Vol] 260 x10EE3/UL Normal 150 - 450 [facility] Comment on above: Performed By: #### 2 81671 #### [facility],[address] [place], [place] [address] RBC (Bld) [#/Vol] 4.41 x 10EE6/UL Low 4.50 - 6.00 [facility] Comment on above: Performed By: #### 2 67020 #### [facility],[address] [place] [address] WBC (Bld) [#/Vol] 9.1 x 10EE3/UL Normal 4.5 - 10.8 [facility] Comment on above: Performed By: #### 2 49195 #### [facility],[address] [place], [place] [id number] CULTURE URINEon 01-07-2020 CULTURE URINE CULTURE URINE _URINE CULTURE_ M I C R O B I O L O G Y R E P O R T FINAL ------- Antimicrobial Susceptibility and Organism Identification Report -------- Specimen Number : [id number] Requested : 01/07/20 Specimen Source : CLEAN CATCH URINE Collected : 01/07/20 02:30 Ar[place] of Isolation : MEME HUANG Received : 01/07/20 02:30 Requesting Physician : FLORECITA -- Patient/Specimen Tests and Comments Specimen Comments -------- -------- FINAL REPORT: NO GROWTH AT 48 HOURS -- Tech : Source : CLEAN CATCH URINE ID # : [id number] FINAL Report Date : / / : Collected : 01/07/20 02:30 01/09/20.1027.BKO. 01/08/20.1302.KLS. 01/09/20.1027.BKO.COMPLETE 01/09/20.1027.BKO.to [employer] via fax Normal [facility] Comment on above: Performed By: #### 2 87545 #### [facility],[address] [place] [address] 78884 LITHIUMon 01-07-2020 [place] [Moles/Vol] 0.6 mmol/L Normal 0.6 - 1.2 [facility] Comment on above: Performed By: #### 2 28435 #### [address],[place] [address] URINALYSISon 01-07-2020 Bilirubin [Mass/Vol] Negative Normal NORMAL: NEGATIVE [facility] Comment on above: Performed By: #### 2 59325 #### [facility] [facility],[address] [place], [place] [id number] Blood Negative Normal NORMAL: NEGATIVE [facility] Comment on above: Performed By: #### 2 13162 #### [facility],[address] [place] [address] Clarity (U) clear Normal NORMAL: CLEAR [facility] Comment on above: Performed By: #### 2 47786 #### [facility],[address] [place] [address] Color (U) p.yel Normal NORMAL: YELLOW [facility] Comment on above: Performed By: #### 2 84895 #### [facility],[address] [place] [address] Glucose [Mass/Vol] NORM Normal NORMAL: NORMAL [facility] Comment on above: Performed By: #### 2 69919 #### [facility],[address] [place] [address] Ketone Negative Normal NORMAL: NEGATIVE [facility] Comment on above: Performed By: #### 2 39157 #### [facility],[address] [place] [address] Microscopic NOT INDICATED Normal [facility] Comment on above: Performed By: #### 2 92808 #### [facility],[address] [place], [place] [id number] Nitrite Ql (U) Negative Normal NORMAL: NEGATIVE [facility] Comment on above: Performed By: #### 2 53034 #### [facility],[address] [place] [address] pH (Bld) 6.5 Normal NORMAL: 5.0-8.0 [facility] Comment on above: Performed By: #### 2 39037 #### [facility],[address] [place] [address] 54570 Protein (U) [Mass/Vol] Negative Normal JENN L: NEGATIVE [facility] Comment on above: Performed By: #### 2 66372 #### [facility],[address] [place] [address] 34533 Sp [place] 1.010 Normal NORMAL: 1.010-1.03 0 [facility] Comment on above: Performed By: #### 2 80020 #### [facility],[address] [place] [address] Specimen type Nom (Spec) Clean catch Normal [facility] Comment on above: Performed By: #### 2 18245 #### [facility],[address] [place] [address] 83716 Urobilinog NORM Normal NORMAL: NORMAL [facility] Comment on above: Performed By: #### 2 97923 #### [facility],[address] [place] [address] 86650 WBC (Bld) [#/Vol] Negative Normal NORMAL: NEGATIVE [facility] Comment on above: Performed By: #### 2 37398 #### [facility],[address] [place] [address] 51753 URINE CREATININE AND PROTEIN RATIOon 01-07-2020 CREATININE UR 75.6 mg/dl Normal [facility] Comment on above: Performed By: #### 2 95211 #### [facility],[address] [place] [address] 99443 PC RATIO 0.07 mg/dL Normal 0.00 - 10.00 [facility] Comment on above: Performed By: #### 2 31225 #### [facility],[address] [place] [address] 95321 Protein (U) [Mass/Vol] mg/dL Normal 0.00 - 10.00 [facility] Comment on above: Performed By: #### 2 22626 #### [facility],[address] [place] [address] CBC + DIFFon 12-10-2019 Basophils (Bld) [#/Vol] 0.10 x10EE3/UL Normal 0. 00 - 0.10 [facility] Comment on above: Performed By: #### 2 83840 #### [facility],[address] [place], [place] [id number] Basophils/100 WBC (Bld) 0.7 % Normal 0.0 - 2.0 [facility] Comment on above: Performed By: #### 2 26034 #### [facility],[address] [place] [address] CBC + DIFF Normal [facility] Comment on above: Result Comment: CBC- COMPLETE BLOOD COUNT Performed By: #### 2 81767 #### [facility],[address] [place] [address] Eosinophils (Bld) [#/Vol] 0.30 x10EE3/UL Normal 0.00 - 0.50 [facility] Comment on above: Performed By: #### 2 44115 #### [facility],[address] [place], [place] [id number] Eosinophils/100 WBC (Bld) 3.2 % Normal 0.0 - 7.0 [facility] Comment on above: Performed By: #### 2 71060 #### [facility],[address] [place] [address] Erythrocyte distribution width (RBC) [Ratio] 12.7 % Normal 12.0 - 15.6 [facility] Comment on above: Performed By: #### 2 44774 #### [facility],[address] [place] [address] Hematocrit (Bld) [Volume fraction] 38.7 % Low 40.0 - 52.0 [facility] Comment on above: Performed By: #### 2 97987 #### [address],[place] [address] Hemoglobin (Bld) [Mass/Vol] 13.4 g/dL Normal 13.0 - 17.5 [facility] Comment on above: Performed By: #### 2 74695 #### [facility],[address] [place] [address] 10362 Lymphocytes (Bld) [#/Vol] 2.10 x10EE3/UL Normal 0.80 - 2.80 [facility] Comment on above: Performed By: #### 2 68216 #### [facility],[address] [place] [address] 85447 Lymphocytes/100 WBC (Bld) 21.3 % Normal 20.0 - 45.0 [facility] Comment on above: Performed By: #### 2 45250 #### [facility],[address] [place] [address] 58010 MANUAL DIFF N/A Normal [facility] Comment on above: Performed By: #### 2 02604 #### [facility],[address] [place] [address] 56688 MCH (RBC) [Entitic mass] 31 pg Normal 27 - 33 [facility] Comment on above: Performed By: #### 2 71341 #### [facility],[address] [place] [address] 53660 MCHC (RBC) [Mass/Vol] 35 X10 3 Normal 32 - 36 [facility] Comment on above: Performed By: #### 2 71478 #### [facility],[address] [place] [address] 20263 MCV (RBC) [Entitic vol] 89 fL Normal 81 - 98 [facility] Comment on above: Performed By: #### 2 18163 #### [facility],[address] [place] [address] 30986 Monocytes (Bld) [#/Vol] 1.00 x10EE3/UL Normal 0. 20 - 1.00 [facility] Comment on above: Performed By: #### 2 22301 #### [facility],[address] [place] [address] 65683 MONOS % 10.5 % High 0.0 - 10.0 [facility] Comment on above: Performed By: #### 2 88348 #### [facility],[address] [place] [address] 36834 Morphology Crispin (Bld) [Interp] N/A Normal [facility] Comment on above: Performed By: #### 2 19280 #### [address] [address] Neutrophils (Bld) [#/Vol] 6.30 x10EE3/UL Normal 1.50 - 7.10 [facility] Comment on above: Performed By: #### 2 87714 #### [address] [address] Neutrophils/100 WBC (Bld) 64.3 % Normal 46.0 - 76.0 [facility] Comment on above: Performed By: #### 2 96595 #### [facility],[address] [place] [address] 69819 Platelet mean volume (Bld) [Entitic vol] 7.4 fL Normal 6.4 - 10.5 [facility] Comment on above: Result Comment: AUTO MATED DIFFERENTIAL Performed By: #### 2 49651 #### [facility],[address] [place] [address] 19011 Platelets (Bld) [#/Vol] 254 x10EE3/UL Normal 150 - 450 [facility] Comment on above: Performed By: #### 2 93891 #### [facility],[address] [place] [address] 00573 RBC (Bld) [#/Vol] 4.34 x 10EE6/UL Low 4.50 - 6.00 [facility] Comment on above: Performed By: #### 2 91714 #### [facility],[address] [place] [address] 40209 WBC (Bld) [#/Vol] 9.8 x 10EE3/UL Normal 4.5 - 10.8 [facility] Comment on above: Performed By: #### 2 72754 #### [facility],[address] [place] [address] 11216 CULTURE URINEon 12-10-2019 CULTURE URINE CULTURE URINE _URINE CULTURE_ M I C R O B I O L O G Y R E P O R T FINAL ------- Antimicrobial Susceptibility and Organism Identification Report -------- Specimen Number : [id number] Requested : 12/09/19 Specimen Source : CLEAN CATCH URINE Collected : 12/09/19 23:45 Arredondo of Isolation : MEME HUANG Received : 12/09/19 23:45 Requesting Physician : FLORECITA -- Patient/Specimen Tests and Comments Specimen Comments -------- -------- FINAL REPORT: NO GROWTH AT 48 HOURS -- Tech : Source : CLEAN CATCH URINE ID # : [id number] FINAL Report Date : / / : Collected : 12/09/19 23:45 12/12/19.BKO. 12/11/19.BKO. 12/12/19.BKO.COMPLETE 12/12/19.BKO.to [facility] via fax Normal [facility] Comment on above: Performed By: #### 2 96200 #### [facility],[address] [place] [address] 79931 LITHIUMon 12-10-2019 [place] [Moles/Vol] 0.6 mmol/L Normal 0.6 - 1.2 [facility] Comment on above: Performed By: #### 2 09545 #### [facility],[address] [place] [address] 13277 RENAL FUNCTION PANEL WITH eG FRon 12-10-2019 Age - Reported 54 years Normal [facility] Comment on above: Performed By: #### 2 20280 #### [facility],[address] [place] [address] 33583 Albumin [Mass/Vol] 3.6 g/dL Normal 3.4 - 4.8 [facility] Comment on above: Performed By: #### 2 26585 #### [facility],[address] [place] [address] 17961 B/C RATIO 12 ratio Normal 0 - 30 [facility] Comment on above: Performed By: #### 2 56438 #### [facility],[address] [place] [address] 73968 Calcium [Mass/Vol] 9.4 mg/dL Normal 8.6 - 10.2 [facility] Comment on above: Performed By: #### 2 02727 #### [facility],[address] [place] [address] 52406 Chloride [Moles/Vol] 105 mmol/L Normal 98 - 107 [facility] Comment on above: Performed By: #### 2 78368 #### [facility],[address] [place] [address] 60088 CO2 [Moles/Vol] 24.4 mmol/L Normal 21.0 - 31.0 [facility] Comment on above: Performed By: #### 2 14487 #### [facility],[address] [place] [address] 19464 Creatinine [Mass/Vol] 1.9 mg/dL High 0.7 - 1.3 [facility] Comment on above: Performed By: #### 2 18392 #### [facility],[address] [place] [address] 54602 GFR/1.73 sq M predicted among non-blacks MDRD (S/P/Bld) [Vol rate/Area] 37 ML/MINUTE Low 60 - 999 [facility] Comment on above: Performed By: #### 2 64810 #### [facility],[address] [place] [address] 97632 GFR/1.73 sq M predicted among non-blacks MDRD (S/P/Bld) [Vol rate/Area] 45 ML/MINUTE Low 60 - 999 [facility] Comment on above: Result Comment: ACCO RDING TO THE NATIONAL KIDNEY DISEASE EDUCATION PROGRAM(NKDE), A NORMAL eGFR IS A VALUE GREATER THAN OR EQUAL TO 60 ML/MIN/1.73 SQ METERS. CHRONIC KIDNEY DISEASE: <60mL/MIN/1.73 SQ METERS KIDNEY FAILURE: <15mL/MIN/1.73 SQ METERS THIS TEST SHOULD ONLY BE USED FOR PATIENTS 18 YEARS OF AGE AND OLDER. Performed By: #### 2 58516 #### [facility],[address] [place], [place] [id number] Glucose [Mass/Vol] 106 mg/dL Normal 74 - 106 [facility] Comment on above: Performed By: #### 2 00720 #### [facility],[address] [place] [address] Phosphate [Mass/Vol] 5.0 mg/dL High 2.7 - 4.9 [facility] Comment on above: Performed By: #### 2 13302 #### [facility],[address] [place] [address] Potassium [Moles/Vol] 3.4 mmol/L Low 3.5 - 5.1 [facility] Comment on above: Performed By: #### 2 38484 #### [facility],[address] [place] [address] RENAL FUNCTION PANEL WITH eGFR Normal [facility] Comment on above: Result Comment: JESSICA L FUNCTION PANEL Performed By: #### 2 59370 #### [facility],[address] [place] [address] Sodium [Moles/Vol] 139 mmol/L Normal 136 - 145 [facility] Comment on above: Performed By: #### 2 88419 #### [facility],[address] [place], [place] [id number] Urea nitrogen [Mass/Vol] 23 mg/dL High 6 - 20 [facility] Comment on above: Performed By: #### 2 98972 #### [place] [id number] URINALYSISon 12-10-2019 Bilirubin [Mass/Vol] Negative Normal NORMAL: NEGATIVE [facility] Comment on above: Performed By: #### 2 69406 #### [facility],[address] [place] [address] 27525 Blood Negative Normal NORMAL: NEGATIVE [facility] Comment on above: Performed By: #### 2 06566 #### [facility],[address] [place] [address] 10119 Clarity (U) clear Normal NORMAL: CLEAR [facility] Comment on above: Performed By: #### 2 99335 #### [facility],[address] [place] [address] 48568 Color (U) p.yel Normal NORMAL: YELLOW [facility] Comment on above: Performed By: #### 2 99999 #### [facility],[address] [place] [address] 75335 Glucose [Mass/Vol] NORM Normal NORMAL: NORMAL [facility] Comment on above: Performed By: #### 2 22726 #### [facility],[address] [place] [address] 64862 Ketone Negative Normal NORMAL: NEGATIVE [facility] Comment on above: Performed By: #### 2 35904 #### [facility],[address] [place] [address] 54080 Microscopic NOT INDICATED Normal [facility] Comment on above: Performed By: #### 2 22967 #### [facility],[address] [place] [address] 94844 Nitrite Ql (U) Negative Normal NORMAL: NEGATIVE [facility] Comment on above: Performed By: #### 2 74833 #### [facility],[address] [place] [address] 56499 pH (Bld) 6 Normal NORMAL: 5.0-8.0 [facility] Comment on above: Performed By: #### 2 37296 #### [facility],[address] [place] [address] 12720 Protein (U) [Mass/Vol] Negative Normal JENN L: NEGATIVE [facility] Comment on above: Performed By: #### 2 75446 #### [facility],[address] [place] [address] Sp [place] 1.015 Normal NORMAL: 1.010-1.03 0 [facility] Comment on above: Performed By: #### 2 88236 #### [facility],[address] [place] [address] Specimen type Nom (Spec) Clean catch Normal [facility] Comment on above: Performed By: #### 2 17677 #### [facility],[address] [place] [address] Urobilinog NORM Normal NORMAL: NORMAL [facility] Comment on above: Performed By: #### 2 10975 #### [facility],[address] [place] [address] WBC (Bld) [#/Vol] Negative Normal NORMAL: NEGATIVE [facility] Comment on above: Performed By: #### 2 21548 #### [facility],[address] [place] [address] URINE CREATININE AND PROTEIN RATIOon 12-10-2019 CREATININE UR 97.1 mg/dl Normal [facility] Comment on above: Performed By: #### 2 20208 #### [facility],[address] [place], [place] [id number] PC RATIO 0.07 mg/dL Normal 0.00 - 10.00 [facility] Comment on above: Performed By: #### 2 25794 #### [facility],[address] [place], [place] [id number] Protein (U) [Mass/Vol] 7.00 mg/dL Normal 0.00 - 10.00 [facility] Comment on above: Performed By: #### 2 83024 #### [facility],[address] [place], [place] [id number] BMP with eGFRon 11-05-2019 Age - Reported 54 years Normal [facility] Comment on above: Performed By: #### 2 75911 #### [facility],[address] [place] [address] 23393 Anion gap [Moles/Vol] 12 mmol/L Normal 10 - 20 [facility] Comment on above: Performed By: #### 2 02059 #### [facility],[address] [place] [address] 54055 Chloride [Moles/Vol] 105 mmol/L Normal 98 - 107 [facility] Comment on above: Performed By: #### 2 73497 #### [facility],[address] [place] [address] 36576 CO2 [Moles/Vol] 26.8 mmol/L Normal 21.0 - 31.0 [facility] Comment on above: Performed By: #### 2 26282 #### [facility],[address] [place] [address] 01556 GFR/1.73 sq M predicted among non-blacks MDRD (S/P/Bld) [Vol rate/Area] 38 ML/MINUTE Low 60 - 999 [facility] Comment on above: Result Comment: ACCO RDING TO THE NATIONAL KIDNEY DISEASE EDUCATION PROGRAM(NKDE), A NORMAL eGFR IS A VALUE GREATER THAN OR EQUAL TO 60 ML/MIN/1.73 SQ METERS. CHRONIC KIDNEY DISEASE: <60mL/MIN/1.73 SQ METERS KIDNEY FAILURE: <15mL/MIN/1.73 SQ METERS THIS TEST SHOULD ONLY BE USED FOR PATIENTS 18 YEARS OF AGE AND OLDER. Performed By: #### 2 13503 #### [facility],[address] [place] [address] 22315 GFR/1.73 sq M predicted among non-blacks MDRD (S/P/Bld) [Vol rate/Area] 31 ML/MINUTE Low 60 - 999 [facility] Comment on above: Performed By: #### 2 19068 #### [facility],[address] [place] [address] 63831 GFR/1.73 sq M predicted among non-blacks MDRD (S/P/Bld) [Vol rate/Area] Normal [facility] Comment on above: Result Comment: BASI C METABOLIC PANEL Performed By: #### 2 48622 #### [facility],[address] [place] [address] 07370 Potassium [Moles/Vol] 3.4 mmol/L Low 3.5 - 5.1 [facility] Comment on above: Performed By: #### 2 24920 #### [facility],[address] [place] [address] 46808 Sodium [Moles/Vol] 140 mmol/L Normal 136 - 145 [facility] Comment on above: Performed By: #### 2 23014 #### [facility],[address] [place] [address] 98807 CBC + DIFFon 11-05-2019 Basophils (Bld) [#/Vol] 0.10 x10EE3/UL Normal 0. 00 - 0.10 [facility] Comment on above: Performed By: #### 2 61046 #### [facility],[address] [place] [address] 09057 Basophils/100 WBC (Bld) 0.9 % Normal 0.0 - 2.0 [facility] Comment on above: Performed By: #### 2 39326 #### [facility],[address] [place] [address] 67770 CBC + DIFF Normal [facility] Comment on above: Result Comment: CBC- COMPLETE BLOOD COUNT Performed By: #### 2 02410 #### [facility],[address] [place] [address] 44436 Eosinophils (Bld) [#/Vol] 0.40 x10EE3/UL Normal 0.00 - 0.50 [facility] Comment on above: Performed By: #### 2 39068 #### [facility],[address] [place] [address] 11615 Eosinophils/100 WBC (Bld) 3.9 % Normal 0.0 - 7.0 [facility] Comment on above: Performed By: #### 2 69315 #### [facility],[address] [place] [address] Erythrocyte distribution width (RBC) [Ratio] 12.4 % Normal 12.0 - 15.6 [facility] Comment on above: Performed By: #### 2 20627 #### [facility],[address] [place] [address] Hematocrit (Bld) [Volume fraction] 39.9 % Low 40.0 - 52.0 [facility] Comment on above: Performed By: #### 2 87179 #### [facility],[address] [place] [address] Hemoglobin (Bld) [Mass/Vol] 13.3 g/dL Normal 13.0 - 17.5 [facility] Comment on above: Performed By: #### 2 07187 #### [place] [address] Lymphocytes (Bld) [#/Vol] 1.90 x10EE3/UL Normal 0.80 - 2.80 [facility] Comment on above: Performed By: #### 2 80453 #### [facility],[address] [place], [place] [address] Lymphocytes/100 WBC (Bld) 20.3 % Normal 20.0 - 45.0 [facility] Comment on above: Performed By: #### 2 63126 #### [facility],[address] [place], [place] [id number] MANUAL DIFF N/A Normal [facility] Comment on above: Performed By: #### 2 72452 #### [facility],[address] [place], [place] [id number] MCH (RBC) [Entitic mass] 30 pg Normal 27 - 33 [facility] Comment on above: Performed By: #### 2 22185 #### [place] [id number] MCHC (RBC) [Mass/Vol] 33 X10 3 Normal 32 - 36 [facility] Comment on above: Performed By: #### 2 48503 #### [facility],[address] [place] [address] 23450 MCV (RBC) [Entitic vol] 91 fL Normal 81 - 98 [facility] Comment on above: Performed By: #### 2 85431 #### [facility],[address] [place] [address] 29290 Monocytes (Bld) [#/Vol] 1.00 x10EE3/UL Normal 0. 20 - 1.00 [facility] Comment on above: Performed By: #### 2 38900 #### [facility],[address] [place] [address] 03446 MONOS % 10.5 % High 0.0 - 10.0 [facility] Comment on above: Performed By: #### 2 93764 #### [facility],[address] [place] [address] 52281 Morphology Crispin (Bld) [Interp] N/A Normal [facility] Comment on above: Performed By: #### 2 46162 #### [facility],[address] [place] [address] 02223 Neutrophils (Bld) [#/Vol] 6.10 x10EE3/UL Normal 1.50 - 7.10 [facility] Comment on above: Performed By: #### 2 33926 #### [facility],[address] [place] [address] 98629 Neutrophils/100 WBC (Bld) 64.4 % Normal 46.0 - 76.0 [facility] Comment on above: Performed By: #### 2 40872 #### [facility],[address] [place] [address] 20503 Platelet mean volume (Bld) [Entitic vol] 7.4 fL Normal 6.4 - 10.5 [facility] Comment on above: Result Comment: AUTO MATED DIFFERENTIAL Performed By: #### 2 36348 #### [facility],[address] [place] [address] 04303 Platelets (Bld) [#/Vol] 260 x10EE3/UL Normal 150 - 450 [facility] Comment on above: Performed By: #### 2 44390 #### [facility],[address] [place] [address] 00510 RBC (Bld) [#/Vol] 4.38 x 10EE6/UL Low 4.50 - 6.00 [facility] Comment on above: Performed By: #### 2 51661 #### [facility],[address] [place] [address] 53391 WBC (Bld) [#/Vol] 9.4 x 10EE3/UL Normal 4.5 - 10.8 [facility] Comment on above: Performed By: #### 2 38990 #### [facility],[address] [place], [place] [id number] LITHIUMon 11-05-2019 [place] [Moles/Vol] 0.5 mmol/L Low 0.6 - 1.2 [facility] Comment on above: Performed By: #### 2 45711 #### [facility],[address] [place] [address] 40694 RENAL FUNCTION PANELon 11-05 Albumin [Mass/Vol] 3.5 g/dL Normal 3.4 - 4.8 [facility] Comment on above: Performed By: #### 2 64489 #### [facility],[address] [place] [address] 54331 B/C RATIO 9 ratio Normal 0 - 30 [facility] Comment on above: Performed By: #### 2 41635 #### [facility],[address] [place] [address] 54972 Calcium [Mass/Vol] 9.4 mg/dL Normal 8.6 - 10.2 [facility] Comment on above: Performed By: #### 2 49043 #### [facility],[address] [place] [address] 61756 Creatinine [Mass/Vol] 2.2 mg/dL High 0.7 - 1.3 [facility] Comment on above: Performed By: #### 2 96941 #### [facility],[address] [place] [address] 77047 Glucose [Mass/Vol] 105 mg/dL Normal 74 - 106 [facility] Comment on above: Performed By: #### 2 93376 #### [facility],[address] [place] [address] 87450 Phosphate [Mass/Vol] 4.3 mg/dL Normal 2.7 - 4.9 [facility] Comment on above: Performed By: #### 2 45591 #### [facility],[address] [place] [address] 21467 RENAL FUNCTION PANEL Normal [facility] Comment on above: Result Comment: JESSICA L FUNCTION PANEL Performed By: #### 2 81175 #### [facility],[address] [place] [address] 59047 Urea nitrogen [Mass/Vol] 20 mg/dL Normal 6 - 20 [facility] Comment on above: Performed By: #### 2 88249 #### [facility],[address] [place] [address] 46461 URINALYSISon 11-05-2019 Bilirubin [Mass/Vol] Negative Normal NORMAL: NEGATIVE [facility] Comment on above: Performed By: #### 2 94446 #### [facility],[address] [place] [address] 70235 Blood Negative Normal NORMAL: NEGATIVE [facility] Comment on above: Performed By: #### 2 [id number] #### [facility],[address] [place] [address] 55765 Clarity (U) clear Normal NORMAL: CLEAR [facility] Comment on above: Performed By: #### 2 01083 #### [facility],[address] [place], [place] [id number] Color (U) p.yel Normal NORMAL: YELLOW [facility] Comment on above: Performed By: #### 2 60945 #### [facility],[address] [place], [place] [id number] Glucose [Mass/Vol] NORM Normal NORMAL: NORMAL [facility] Comment on above: Performed By: #### 2 84411 #### [facility],[address] [place] [address] Ketone Negative Normal NORMAL: NEGATIVE [facility] Comment on above: Performed By: #### 2 98812 #### [facility],[address] [place] [address] Microscopic NOT INDICATED Normal [facility] Comment on above: Performed By: #### 2 11584 #### [facility],[address] [place] [address] Nitrite Ql (U) Negative Normal NORMAL: NEGATIVE [facility] Comment on above: Performed By: #### 2 10146 #### [facility],[address] [place] [address] pH (Bld) 6.5 Normal NORMAL: 5.0-8.0 [facility] Comment on above: Performed By: #### 2 48439 #### [facility],[address] [place] [address] Protein (U) [Mass/Vol] Negative Normal JENN L: NEGATIVE [facility] Comment on above: Performed By: #### 2 78367 #### [facility],[address] [place], [place] [id number] Sp De [place]y 1.010 Normal NORMAL: 1.010-1.03 0 [facility] Comment on above: Performed By: #### 2 86109 #### [facility],[address] [place] [address] Specimen type Nom (Spec) UNSPECIFIED Normal [facility] Comment on above: Performed By: #### 2 65096 #### [facility],[address] [place] [address] 48235 Urobilinog NORM Normal NORMAL: NORMAL [facility] Comment on above: Performed By: #### 2 41038 #### [facility],[address] [place] [address] 59312 WBC (Bld) [#/Vol] Negative Normal NORMAL: NEGATIVE [facility] Comment on above: Performed By: #### 2 79549 #### [facility],[address] [place] [address] 85078 URINE CREATININE AND PROTEIN RATIOon 11-05-2019 CREATININE UR 72.6 mg/dl Normal [facility] Comment on above: Performed By: #### 2 37588 #### [facility],[address] [place] [address] 53533 PC RATIO 0.07 mg/dL Normal 0.00 - 10.00 [facility] Comment on above: Performed By: #### 2 52105 #### [facility],[address] [place] [address] 19393 Protein (U) [Mass/Vol] mg/dL Normal 0.00 - 10.00 [facility] Comment on above: Performed By: #### 2 41447 #### [facility],[address] [place] [address] 17374 BMP with eGFRon 10-08-2019 Age - Reported 54 years Normal [facility] Comment on above: Performed By: #### 2 81297 #### [facility],[address] [place] [address] 60028 Anion gap [Moles/Vol] 12 mmol/L Normal 10 - 20 [facility] Comment on above: Performed By: #### 2 88790 #### [facility],[address] [place] [address] 42710 Calcium [Mass/Vol] 9.2 mg/dL Normal 8.6 - 10.2 [facility] Comment on above: Performed By: #### 2 03907 #### [facility],[address] [place], [place] [id number] Chloride [Moles/Vol] 107 mmol/L Normal 98 - 107 [facility] Comment on above: Performed By: #### 2 31884 #### [facility],[address] [place] [address] CO2 [Moles/Vol] 26.7 mmol/L Normal 21.0 - 31.0 [facility] Comment on above: Performed By: #### 2 84558 #### [place] [address] Creatinine [Mass/Vol] 2.1 mg/dL High 0.7 - 1.3 [facility] Comment on above: Performed By: #### 2 40675 #### [facility],[address] [place], [place] [id number] GFR/1.73 sq M predicted among non-blacks MDRD (S/P/Bld) [Vol rate/Area] Normal [facility] Comment on above: Result Comment: BASI C METABOLIC PANEL Performed By: #### 2 39097 #### [place] [id number] GFR/1.73 sq M predicted among non-blacks MDRD (S/P/Bld) [Vol rate/Area] 40 ML/MINUTE Low 60 - 999 [facility] Comment on above: Result Comment: ACCO RDING TO THE NATIONAL KIDNEY DISEASE EDUCATION PROGRAM(NKDE), A NORMAL eGFR IS A VALUE GREATER THAN OR EQUAL TO 60 ML/MIN/1.73 SQ METERS. CHRONIC KIDNEY DISEASE: <60mL/MIN/1.73 SQ METERS KIDNEY FAILURE: <15mL/MIN/1.73 SQ METERS THIS TEST SHOULD ONLY BE USED FOR PATIENTS 18 YEARS OF AGE AND OLDER. Performed By: #### 2 42920 #### [facility],[address],[place] [address] GFR/1.73 sq M predicted among non-blacks MDRD (S/P/Bld) [Vol rate/Area] 33 ML/MINUTE Low 60 - 999 [facility] Comment on above: Performed By: #### 2 92278 #### [facility],[address] [place] [address] 54407 Glucose [Mass/Vol] 106 mg/dL Normal 74 - 106 [facility] Comment on above: Performed By: #### 2 83764 #### [facility],[address] [place] [address] 14975 Potassium [Moles/Vol] 3.6 mmol/L Normal 3.5 - 5.1 [facility] Comment on above: Performed By: #### 2 32443 #### [facility],[address] [place] [address] 35868 Sodium [Moles/Vol] 142 mmol/L Normal 136 - 145 [facility] Comment on above: Performed By: #### 2 94224 #### [facility],[address] [place] [address] 97843 Urea nitrogen [Mass/Vol] 22 mg/dL High 6 - 20 [facility] Comment on above: Performed By: #### 2 62240 #### [facility],[address] [place] [address] 54414 CBC + DIFFon 10-08-2019 Basophils (Bld) [#/Vol] 0.10 x10EE3/UL Normal 0. 00 - 0.10 [facility] Comment on above: Performed By: #### 2 15468 #### [facility],[address] [place] [address] 45739 Basophils/100 WBC (Bld) 0.7 % Normal 0.0 - 2.0 [facility] Comment on above: Performed By: #### 2 08524 #### [facility],[address] [place] [address] 96610 CBC + DIFF Normal [facility] Comment on above: Result Comment: CBC- COMPLETE BLOOD COUNT Performed By: #### 2 08746 #### [facility],[address] [place] [address] 17885 Eosinophils (Bld) [#/Vol] 0.50 x10EE3/UL Normal 0.00 - 0.50 [facility] Comment on above: Performed By: #### 2 76880 #### [facility],[address] [place] [address] 80669 Eosinophils/100 WBC (Bld) 5.1 % Normal 0.0 - 7.0 [facility] Comment on above: Performed By: #### 2 70915 #### [facility],[address] [place] [address] 08711 Erythrocyte distribution width (RBC) [Ratio] 12.8 % Normal 12.0 - 15.6 [facility] Comment on above: Performed By: #### 2 19456 #### [facility],[address] [place] [address] 89800 Hematocrit (Bld) [Volume fraction] 37.6 % Low 40.0 - 52.0 [facility] Comment on above: Performed By: #### 2 68913 #### [facility],[address] [place] [address] 50984 Hemoglobin (Bld) [Mass/Vol] 12.5 g/dL Low 13.0 - 17.5 [facility] Comment on above: Performed By: #### 2 90791 #### [facility],[address] [place] [address] 75089 Lymphocytes (Bld) [#/Vol] 1.90 x10EE3/UL Normal 0.80 - 2.80 [facility] Comment on above: Performed By: #### 2 65040 #### [facility],[address] [place] [address] 06230 Lymphocytes/100 WBC (Bld) 18.6 % Low 20.0 - 45.0 [facility] Comment on above: Performed By: #### 2 25416 #### [facility],[address] [place] [address] 55214 MANUAL DIFF N/A Normal [facility] Comment on above: Performed By: #### 2 76032 #### [facility],[address] [place] [address] 60678 MCH (RBC) [Entitic mass] 31 pg Normal 27 - 33 [facility] Comment on above: Performed By: #### 2 51677 #### [facility],[address] [place] [address] 52129 MCHC (RBC) [Mass/Vol] 33 X10 3 Normal 32 - 36 [facility] Comment on above: Performed By: #### 2 71358 #### [facility],[address] [place] [address] 84102 MCV (RBC) [Entitic vol] 93 fL Normal 81 - 98 [facility] Comment on above: Performed By: #### 2 20303 #### [facility],[address] [place] [address] 78267 Monocytes (Bld) [#/Vol] 1.00 x10EE3/UL Normal 0. 20 - 1.00 [facility] Comment on above: Performed By: #### 2 14035 #### [facility],[address] [place] [address] 14269 MONOS % 9.4 % Normal 0.0 - 10.0 [facility] Comment on above: Performed By: #### 2 77902 #### [facility],[address] [place] [address] 50787 Morphology Crispin (Bld) [Interp] N/A Normal [facility] Comment on above: Performed By: #### 2 64603 #### [facility],[address] [place] [address] 54054 Neutrophils (Bld) [#/Vol] 6.90 x10EE3/UL Normal 1.50 - 7.10 [facility] Comment on above: Performed By: #### 2 93976 #### [facility],[address] [place] [address] 14588 Neutrophils/100 WBC (Bld) 66.2 % Normal 46.0 - 76.0 [facility] Comment on above: Performed By: #### 2 24086 #### [facility],[address] [place] [address] 33335 Platelet mean volume (Bld) [Entitic vol] 7.7 fL Normal 6.4 - 10.5 [facility] Comment on above: Result Comment: AUTO MATED DIFFERENTIAL Performed By: #### 2 91014 #### [facility],[address] [place] [address] 31019 Platelets (Bld) [#/Vol] 250 x10EE3/UL Normal 150 - 450 [facility] Comment on above: Performed By: #### 2 56586 #### [facility],[address] [place] [address] 61803 RBC (Bld) [#/Vol] 4.07 x 10EE6/UL Low 4.50 - 6.00 [facility] Comment on above: Performed By: #### 2 59795 #### [facility],[address] [place] [address] 15107 WBC (Bld) [#/Vol] 10.4 x 10EE3/UL Normal 4.5 - 10.8 [facility] Comment on above: Performed By: #### 2 90828 #### [facility],[address] [place] [address] 64220 CULTURE URINEon 10-08-2019 CULTURE URINE CULTURE URINE _URINE CULTURE_ M I C R O B I O L O G Y R E P O R T FINAL ------- Antimicrobial Susceptibility and Organism Identification Report -------- Specimen Number : [id number] Requested : 10/08/19 Specimen Source : URINE Collected : 10/08/19 08:30 Arredondo of Isolation : MEME HUANG Received : 10/08/19 08:30 Requesting Physician : FLORECITA -- Patient/Specimen Tests and Comments Specimen Comments -------- -------- FINAL REPORT: NO GROWTH AT 48 HOURS -- Tech : Source : URINE ID # : [id number] FINAL Report Date : / / : Collected : 10/08/19 08:30 10/10/19.1115.BKO. 10/09/19.1011.BKO. 10/10/19.1115.BKO.COMPLETE Normal [facility] Comment on above: Performed By: #### 2 31949 #### [facility],[address] [place] [address] 55676 HEPATIC FUNCTION PANELon ALK PHOS 52 U/L Normal 38 - 126 [facility] Comment on above: Performed By: #### 2 33024 #### [facility],[address] [place] [address] 13976 ALT/SGPT 15 U/L Normal 10 - 40 [facility] Comment on above: Performed By: #### 2 68753 #### [facility],[address] [place] [address] 91905 AST/SGOT 9 U/L Low 13 - 39 [facility] Comment on above: Performed By: #### 2 41729 #### [facility],[address] [place] [address] 11252 Bilirubin [Mass/Vol] 0.3 mg/dL Normal 0.0 - 1.5 [facility] Comment on above: Performed By: #### 2 03063 #### [facility],[address] [place] [address] 71729 Bilirubin.direct [Mass/Vol] 0.1 mg/dL Normal 0.0 - 0.1 [facility] Comment on above: Performed By: #### 2 53958 #### [facility],[address] [place] [address] 36960 HEPATIC FUNCTION PANEL Normal [facility] Comment on above: Result Comment: HEPA TIC FUNCTION PROFILE Performed By: #### 2 32182 #### [facility],[address] [place] [address] 50541 Protein [Mass/Vol] 5.5 g/dL Low 6.4 - 8.3 [facility] Comment on above: Performed By: #### 2 60059 #### [facility],[address] [place] [address] 73802 LITHIUMon 10-08-2019 [place] [Moles/Vol] 0.6 mmol/L Normal 0.6 - 1.2 [facility] Comment on above: Performed By: #### 2 97393 #### [facility],[address] [place] [address] 89074 RENAL FUNCTION PANELon 10-08 Albumin [Mass/Vol] 3.5 g/dL Normal 3.4 - 4.8 [facility] Comment on above: Performed By: #### 2 02505 #### [facility],[address] [place] [address] 78041 B/C RATIO 10 ratio Normal 0 - 30 [facility] Comment on above: Performed By: #### 2 74160 #### [facility],[address] [place] [address] 22966 Calcium [Mass/Vol] 9.2 mg/dL Normal 8.6 - 10.2 [facility] Comment on above: Performed By: #### 2 89701 #### [facility],[address] [place] [address] 77839 Chloride [Moles/Vol] 107 mmol/L Normal 98 - 107 [facility] Comment on above: Performed By: #### 2 51775 #### [facility],[address] [place] [address] 82577 CO2 [Moles/Vol] 26.7 mmol/L Normal 21.0 - 31.0 [facility] Comment on above: Performed By: #### 2 01125 #### [facility],[address] [place] [address] 69891 Creatinine [Mass/Vol] 2.1 mg/dL High 0.7 - 1.3 [facility] Comment on above: Performed By: #### 2 63089 #### [facility],[address] [place] [address] 03544 Glucose [Mass/Vol] 106 mg/dL Normal 74 - 106 [facility] Comment on above: Performed By: #### 2 28499 #### [facility],[address] [place] [address] 09762 Phosphate [Mass/Vol] 4.7 mg/dL Normal 2.7 - 4.9 [facility] Comment on above: Performed By: #### 2 92597 #### [facility],[address] [place] [address] Potassium [Moles/Vol] 3.6 mmol/L Normal 3.5 - 5.1 [facility] Comment on above: Performed By: #### 2 59934 #### [facility],[address] [place] [address] RENAL FUNCTION PANEL Normal [facility] Comment on above: Result Comment: JESSICA L FUNCTION PANEL Performed By: #### 2 78521 #### [facility],[address] [place] [address] Sodium [Moles/Vol] 142 mmol/L Normal 136 - 145 [facility] Comment on above: Performed By: #### 2 23714 #### [facility],[address] [place], [place] [id number] Urea nitrogen [Mass/Vol] 22 mg/dL High 6 - 20 [facility] Comment on above: Performed By: #### 2 13858 #### [facility],[address] [place], [place] [id number] URINALYSISon 10-08-2019 Bilirubin [Mass/Vol] Negative Normal NORMAL: NEGATIVE [facility] Comment on above: Performed By: #### 2 49894 #### [facility],[address] [place], [place] [id number] Blood Negative Normal NORMAL: NEGATIVE [facility] Comment on above: Performed By: #### 2 20731 #### [facility],[address] [place], [place] [id number] Clarity (U) clear Normal NORMAL: CLEAR [facility] Comment on above: Performed By: #### 2 55835 #### [facility],[address] [place] [address] 66195 Color (U) p.yel Normal NORMAL: YELLOW [facility] Comment on above: Performed By: #### 2 40620 #### [facility],[address] [place] [address] 56769 Glucose [Mass/Vol] NORM Normal NORMAL: NORMAL [facility] Comment on above: Performed By: #### 2 30173 #### [facility],[address] [place] [address] 92060 Ketone Negative Normal NORMAL: NEGATIVE [facility] Comment on above: Performed By: #### 2 73413 #### [facility],[address] [place] [address] 68047 Microscopic NOT INDICATED Normal [facility] Comment on above: Performed By: #### 2 74126 #### [facility],[address] [place] [address] 35425 Nitrite Ql (U) Negative Normal NORMAL: NEGATIVE [facility] Comment on above: Performed By: #### 2 21056 #### [facility],[address] [place] [address] 96706 pH (Bld) 6 Normal NORMAL: 5.0-8.0 [facility] Comment on above: Performed By: #### 2 60673 #### [facility],[address] [place] [address] 41963 Protein (U) [Mass/Vol] Negative Normal JENN L: NEGATIVE [facility] Comment on above: Performed By: #### 2 78726 #### [facility],[address] [place] [address] 92083 Sp De [place]y 1.015 Normal NORMAL: 1.010-1.03 0 [facility] Comment on above: Performed By: #### 2 95439 #### [facility],[address] [place] [address] Specimen type Nom (Spec) Clean catch Normal [facility] Comment on above: Performed By: #### 2 19868 #### [facility],[address] [place] [address] Urobilinog NORM Normal NORMAL: NORMAL [facility] Comment on above: Performed By: #### 2 51726 #### [facility],[address] [place] [address] WBC (Bld) [#/Vol] Negative Normal NORMAL: NEGATIVE [facility] Comment on above: Performed By: #### 2 02249 #### [facility],[address] [place] [address] CBC + DIFFon 09-10-2019 Basophils (Bld) [#/Vol] 0.10 x10EE3/UL Normal 0. 00 - 0.10 [facility] Comment on above: Performed By: #### 2 85479 #### [facility],[address] [place] [address] Basophils/100 WBC (Bld) 1.0 % Normal 0.0 - 2.0 [facility] Comment on above: Performed By: #### 2 04556 #### [facility],[address] [place] [address] CBC + DIFF Normal [facility] Comment on above: Result Comment: CBC- COMPLETE BLOOD COUNT Performed By: #### 2 84245 #### [facility],[address] [place] [address] Eosinophils (Bld) [#/Vol] 0.50 x10EE3/UL Normal 0.00 - 0.50 [facility] Comment on above: Performed By: #### 2 79962 #### [facility],[address] [place], [place] [id number] Eosinophils/100 WBC (Bld) 6.3 % Normal 0.0 - 7.0 [facility] Comment on above: Performed By: #### 2 25914 #### [facility],[address] [place] [address] Erythrocyte distribution width (RBC) [Ratio] 13.3 % Normal 12.0 - 15.6 [facility] Comment on above: Performed By: #### 2 68556 #### [facility],[address] [place] [address] Hematocrit (Bld) [Volume fraction] 36.9 % Low 40.0 - 52.0 [facility] Comment on above: Performed By: #### 2 36522 #### [facility],[address] [place] [address] Hemoglobin (Bld) [Mass/Vol] 12.5 g/dL Low 13.0 - 17.5 [facility] Comment on above: Performed By: #### 2 25780 #### [place] [address] Lymphocytes (Bld) [#/Vol] 2.20 x10EE3/UL Normal 0.80 - 2.80 [facility] Comment on above: Performed By: #### 2 07383 #### [facility],[address] [place], [place] [id number] Lymphocytes/100 WBC (Bld) 25.0 % Normal 20.0 - 45.0 [facility] Comment on above: Performed By: #### 2 35466 #### [facility],[address] [place], [place] [id number] MANUAL DIFF N/A Normal [facility] Comment on above: Performed By: #### 2 58986 #### [place] [id number] MCH (RBC) [Entitic mass] 31 pg Normal 27 - 33 [facility] Comment on above: Performed By: #### 2 57272 #### [facility],[address],[place] [address] MCHC (RBC) [Mass/Vol] 34 X10 3 Normal 32 - 36 [facility] Comment on above: Performed By: #### 2 90784 #### [facility],[address] [place] [address] 55917 MCV (RBC) [Entitic vol] 93 fL Normal 81 - 98 [facility] Comment on above: Performed By: #### 2 10854 #### [facility],[address] [place] [address] 27684 Monocytes (Bld) [#/Vol] 0.90 x10EE3/UL Normal 0. 20 - 1.00 [facility] Comment on above: Performed By: #### 2 19093 #### [facility],[address] [place] [address] 76401 MONOS % 10.6 % High 0.0 - 10.0 [facility] Comment on above: Performed By: #### 2 97225 #### [facility],[address] [place] [address] 75599 Morphology Crispin (Bld) [Interp] N/A Normal [facility] Comment on above: Performed By: #### 2 16347 #### [facility],[address] [place] [address] 25340 Neutrophils (Bld) [#/Vol] 5.00 x10EE3/UL Normal 1.50 - 7.10 [facility] Comment on above: Performed By: #### 2 31188 #### [facility],[address] [place] [address] 96143 Neutrophils/100 WBC (Bld) 57.1 % Normal 46.0 - 76.0 [facility] Comment on above: Performed By: #### 2 03927 #### [facility],[address] [place] [address] 50762 Platelet mean volume (Bld) [Entitic vol] 7.6 fL Normal 6.4 - 10.5 [facility] Comment on above: Result Comment: AUTO MATED DIFFERENTIAL Performed By: #### 2 36679 #### [facility],[address] [place] [address] 89948 Platelets (Bld) [#/Vol] 236 x10EE3/UL Normal 150 - 450 [facility] Comment on above: Performed By: #### 2 27423 #### [facility],[address] [place], [place] [address] RBC (Bld) [#/Vol] 3.99 x 10EE6/UL Low 4.50 - 6.00 [facility] Comment on above: Performed By: #### 2 59750 #### [facility],[address] [place] [address] 73276 WBC (Bld) [#/Vol] 8.7 x 10EE3/UL Normal 4.5 - 10.8 [facility] Comment on above: Performed By: #### 2 83311 #### [facility],[address] [place], [place] [id number] CULTURE URINEon 09-10-2019 CULTURE URINE CULTURE URINE _URINE CULTURE_ M I C R O B I O L O G Y R E P O R T FINAL ------- Antimicrobial Susceptibility and Organism Identification Report -------- Specimen Number : [id number] Requested : 09/10/19 Specimen Source : CLEAN CATCH URINE Collected : 09/10/19 04:30 Arredondo of Isolation : MEME HUANG Received : 09/10/19 04:30 Requesting Physician : FLORECITA -- Patient/Specimen Tests and Comments Specimen Comments -------- -------- FINAL REPORT: NO GROWTH AT 48 HOURS -- Tech : Source : CLEAN CATCH URINE ID # : [id number] FINAL Report Date : / / : Collected : 09/10/19 04:30 09/12/19.BKO. 09/11/19.0717.JLN. 09/12/19.1052.BKO.COMPLETE 09/12/19.BKO.to MajoraLane via fax Normal [facility] Comment on above: Performed By: #### 2 10271 #### [facility],[address] [place] [address] [place] [address] 09-10-2019 [place] [Moles/Vol] 0.6 mmol/L Normal 0.6 - 1.2 [facility] Comment on above: Performed By: #### 2 62015 #### [facility],[address] [place] [address] 41005 RENAL FUNCTION PANEL WITH eG FRon 09-10-2019 Age - Reported 54 years Normal [facility] Comment on above: Performed By: #### 2 23876 #### [facility],[address] [place] [address] 41350 Albumin [Mass/Vol] 3.4 g/dL Normal 3.4 - 4.8 [facility] Comment on above: Performed By: #### 2 26012 #### [facility],[address] [place] [address] 21200 B/C RATIO 11 ratio Normal 0 - 30 [facility] Comment on above: Performed By: #### 2 11493 #### [facility],[address] [place] [address] 74815 Calcium [Mass/Vol] 9.2 mg/dL Normal 8.6 - 10.2 [facility] Comment on above: Performed By: #### 2 97751 #### [facility],[address] [place] [address] 40213 Chloride [Moles/Vol] 107 mmol/L Normal 98 - 107 [facility] Comment on above: Performed By: #### 2 44563 #### [facility],[address] [place] [address] 13615 CO2 [Moles/Vol] 25.3 mmol/L Normal 21.0 - 31.0 [facility] Comment on above: Performed By: #### 2 69909 #### [facility],[address] [place] [address] 04923 Creatinine [Mass/Vol] 2.2 mg/dL High 0.7 - 1.3 [facility] Comment on above: Performed By: #### 2 95508 #### [facility],[address] [place] [address] 36150 GFR/1.73 sq M predicted among non-blacks MDRD (S/P/Bld) [Vol rate/Area] 31 ML/MINUTE Low 60 - 999 [facility] Comment on above: Performed By: #### 2 18960 #### [facility],[address] [place] [address] 38933 GFR/1.73 sq M predicted among non-blacks MDRD (S/P/Bld) [Vol rate/Area] 38 ML/MINUTE Low 60 - 999 [facility] Comment on above: Result Comment: ACCO RDING TO THE NATIONAL KIDNEY DISEASE EDUCATION PROGRAM(NKDE), A NORMAL eGFR IS A VALUE GREATER THAN OR EQUAL TO 60 ML/MIN/1.73 SQ METERS. CHRONIC KIDNEY DISEASE: <60mL/MIN/1.73 SQ METERS KIDNEY FAILURE: <15mL/MIN/1.73 SQ METERS THIS TEST SHOULD ONLY BE USED FOR PATIENTS 18 YEARS OF AGE AND OLDER. Performed By: #### 2 55021 #### [facility],[address] [place] [address] 21010 Glucose [Mass/Vol] 96 mg/dL Normal 74 - 106 [facility] Comment on above: Performed By: #### 2 54305 #### [address] [address] Phosphate [Mass/Vol] 4.5 mg/dL Normal 2.7 - 4.9 [facility] Comment on above: Performed By: #### 2 63012 #### [address] [address] Potassium [Moles/Vol] 3.5 mmol/L Normal 3.5 - 5.1 [facility] Comment on above: Performed By: #### 2 24303 #### [address] [address] RENAL FUNCTION PANEL WITH eGFR Normal [facility] Comment on above: Result Comment: JESSICA L FUNCTION PANEL Performed By: #### 2 04421 #### [facility],[address] [place] [address] 87981 Sodium [Moles/Vol] 141 mmol/L Normal 136 - 145 [facility] Comment on above: Performed By: #### 2 37928 #### [facility],[address] [place] [address] 79760 Urea nitrogen [Mass/Vol] 24 mg/dL High 6 - 20 [facility] Comment on above: Performed By: #### 2 96361 #### [facility],[address] [place] [address] 43612 URINALYSISon 09-10-2019 Bilirubin [Mass/Vol] Negative Normal NORMAL: NEGATIVE [facility] Comment on above: Performed By: #### 2 32417 #### [facility],[address] [place] [address] 21406 Blood Negative Normal NORMAL: NEGATIVE [facility] Comment on above: Performed By: #### 2 49081 #### [facility],[address] [place] [address] 91220 Clarity (U) clear Normal NORMAL: CLEAR [facility] Comment on above: Performed By: #### 2 95015 #### [facility],[address] [place] [address] 77386 Color (U) p.yel Normal NORMAL: YELLOW [facility] Comment on above: Performed By: #### 2 21150 #### [facility],[address] [place] [address] 82395 Glucose [Mass/Vol] NORM Normal NORMAL: NORMAL [facility] Comment on above: Performed By: #### 2 42343 #### [facility],[address] [place] [address] 73952 Ketone Negative Normal NORMAL: NEGATIVE [facility] Comment on above: Performed By: #### 2 06198 #### [facility],[address] [place] [address] 64355 Microscopic NOT INDICATED Normal [facility] Comment on above: Performed By: #### 2 40262 #### [facility],[address] [place] [address] 24268 Nitrite Ql (U) Negative Normal NORMAL: NEGATIVE [facility] Comment on above: Performed By: #### 2 24075 #### [facility],[address] [place] [address] pH (Bld) 6.5 Normal NORMAL: 5.0-8.0 [facility] Comment on above: Performed By: #### 2 40677 #### [facility],[address] [place] [address] Protein (U) [Mass/Vol] Negative Normal JENN L: NEGATIVE [facility] Comment on above: Performed By: #### 2 05741 #### [facility],[address] [place] [address] Sp De Lancey 1.010 Normal NORMAL: 1.010-1.03 0 [facility] Comment on above: Performed By: #### 2 57635 #### [facility],[address] [place] [address] Specimen type Nom (Spec) Clean catch Normal [facility] Comment on above: Performed By: #### 2 10650 #### [facility],[address] [place] [address] Urobilinog NORM Normal NORMAL: NORMAL [facility] Comment on above: Performed By: #### 2 53560 #### [facility],[address] [place], [place] [id number] WBC (Bld) [#/Vol] Negative Normal NORMAL: NEGATIVE [facility] Comment on above: Performed By: #### 2 13678 #### [facility],[address] [place] [address] URINE CREATININE AND PROTEIN RATIOon 09-10-2019 CREATININE UR 58.3 mg/dl Normal [facility] Comment on above: Performed By: #### 2 42717 #### [facility],[address] [place] [address] PC RATIO 0.09 mg/dL Normal 0.00 - 10.00 [facility] Comment on above: Performed By: #### 2 57631 #### [facility],[address] [place] [address] 42808 Protein (U) [Mass/Vol] mg/dL Normal 0.00 - 10.00 [facility] Comment on above: Performed By: #### 2 81647 #### [facility],[address] [place] [address] 84417 BMP with eGFRon 08-31-2019 Age - Reported 54 years Normal [facility] Comment on above: Performed By: #### 2 32115 #### [facility],[address] [place] [address] 17507 Anion gap [Moles/Vol] 12 mmol/L Normal 10 - 20 [facility] Comment on above: Performed By: #### 2 94012 #### [facility],[address] [place] [address] 58511 Calcium [Mass/Vol] 9.4 mg/dL Normal 8.6 - 10.2 [facility] Comment on above: Performed By: #### 2 84087 #### [facility],[address] [place] [address] 53275 Chloride [Moles/Vol] 104 mmol/L Normal 98 - 107 [facility] Comment on above: Performed By: #### 2 23215 #### [facility],[address] [place] [address] 72695 CO2 [Moles/Vol] 26.9 mmol/L Normal 21.0 - 31.0 [facility] Comment on above: Performed By: #### 2 38802 #### [facility],[address] [place] [address] 03006 Creatinine [Mass/Vol] 2.4 mg/dL High 0.7 - 1.3 [facility] Comment on above: Performed By: #### 2 47868 #### [facility],[address] [place] [address] 69645 GFR/1.73 sq M predicted among non-blacks MDRD (S/P/Bld) [Vol rate/Area] Normal [facility] Comment on above: Result Comment: BASI C METABOLIC PANEL Performed By: #### 2 16516 #### [facility],[address] [place] [address] 83512 GFR/1.73 sq M predicted among non-blacks MDRD (S/P/Bld) [Vol rate/Area] 28 ML/MINUTE Low 60 - 999 [facility] Comment on above: Performed By: #### 2 63649 #### [facility],[address] [place] [address] 55914 GFR/1.73 sq M predicted among non-blacks MDRD (S/P/Bld) [Vol rate/Area] 34 ML/MINUTE Low 60 - 999 [facility] Comment on above: Result Comment: ACCO RDING TO THE NATIONAL KIDNEY DISEASE EDUCATION PROGRAM(NKDE), A NORMAL eGFR IS A VALUE GREATER THAN OR EQUAL TO 60 ML/MIN/1.73 SQ METERS. CHRONIC KIDNEY DISEASE: <60mL/MIN/1.73 SQ METERS KIDNEY FAILURE: <15mL/MIN/1.73 SQ METERS THIS TEST SHOULD ONLY BE USED FOR PATIENTS 18 YEARS OF AGE AND OLDER. Performed By: #### 2 27800 #### [facility],[address] [place] [address] 60040 Glucose [Mass/Vol] 106 mg/dL Normal 74 - 106 [facility] Comment on above: Performed By: #### 2 86910 #### [facility],[address] [place] [address] 11690 Potassium [Moles/Vol] 3.5 mmol/L Normal 3.5 - 5.1 [facility] Comment on above: Performed By: #### 2 16364 #### [facility],[address] [place] [address] 97466 Sodium [Moles/Vol] 139 mmol/L Normal 136 - 145 [facility] Comment on above: Performed By: #### 2 13395 #### [facility],[address] [place] [address] 31670 Urea nitrogen [Mass/Vol] 25 mg/dL High 6 - 20 [facility] Comment on above: Performed By: #### 2 93288 #### [facility],[address] [place], [place] [id number] HGB A1C [CCL]on 08-26-2019 HbA1c (Bld) [Mass fraction] 117 mg/dL Normal [facility] Comment on above: Result Comment: eAG: (Estimated average glucose) is a calculated value from HgbA1c and is human resources hr representative of the average blood glucose level in the last 2-3 month period. [facility] [address] [place] [id number] Peyton Lang M.D. [id number] Performed By: #### 2 68497 #### [facility],[address] [place], [place] [id number] HbA1c (Bld) [Mass fraction] 5.7 % High 4.3-5.6 [facility] Comment on above: Result Comment: Amer [place] Diabetes Association guidelines indicate that patients with HgbA1c in the range 5.7-6.4% are at increased risk for development of diabetes, and intervention by lifestyle modification may be beneficial. HgbA1c greater or equal to 6.5% is considered diagnostic of diabetes. Performed By: #### 2 01035 #### [facility],[address] [place] [address] 42189 Hemoglobin A1con 08-26-2019 HbA1c (Bld) [Mass fraction] 5.7 % High 4.3-5.6 [facility] Comment on above: Performed By: #### H BA1C #### [facility] Routine Lab [address] [place] [id number] HbA1c (Bld) [Mass fraction] 117 mg/dL Normal [facility] Comment on above: Performed By: #### H BA1C #### [facility] [address] [place] [address] RENAL FUNCTION PANELon 08-14 Albumin [Mass/Vol] 3.2 g/dL Low 3.4 - 4.8 [facility] Comment on above: Performed By: #### 2 87391 #### [facility],[address] [place] [address] 47401 B/C RATIO 13 ratio Normal 0 - 30 [facility] Comment on above: Performed By: #### 2 65235 #### [facility],[address] [place] [address] 11933 Calcium [Mass/Vol] 8.8 mg/dL Normal 8.6 - 10.2 [facility] Comment on above: Performed By: #### 2 98513 #### [facility],[address] [place] [address] 15017 Chloride [Moles/Vol] 105 mmol/L Normal 98 - 107 [facility] Comment on above: Performed By: #### 2 70522 #### [facility],[address] [place] [address] 52637 CO2 [Moles/Vol] 29.8 mmol/L Normal 21.0 - 31.0 [facility] Comment on above: Performed By: #### 2 32226 #### [facility],[address] [place] [address] 09741 Creatinine [Mass/Vol] 2.0 mg/dL High 0.7 - 1.3 [facility] Comment on above: Performed By: #### 2 64439 #### [facility],[address] [place] [address] 50370 Glucose [Mass/Vol] 78 mg/dL Normal 74 - 106 [facility] Comment on above: Performed By: #### 2 45264 #### [facility],[address] [place] [address] 80254 Phosphate [Mass/Vol] 4.8 mg/dL Normal 2.7 - 4.9 [facility] Comment on above: Performed By: #### 2 70922 #### [facility],[address] [place] [address] 09663 Potassium [Moles/Vol] 3.9 mmol/L Normal 3.5 - 5.1 [facility] Comment on above: Performed By: #### 2 92017 #### [facility],[address] [place] [address] RENAL FUNCTION PANEL Normal [facility] Comment on above: Result Comment: JESSICA L FUNCTION PANEL Performed By: #### 2 89129 #### [facility],[address] [place] [address] Sodium [Moles/Vol] 141 mmol/L Normal 136 - 145 [facility] Comment on above: Performed By: #### 2 64921 #### [facility],[address] [place] [address] Urea nitrogen [Mass/Vol] 25 mg/dL High 6 - 20 [facility] Comment on above: Performed By: #### 2 49810 #### [place] [address] CBC (NO DIFF)on 08-06-2019 CBC (NO DIFF) Normal [facility] Comment on above: Result Comment: CBC( WITHOUT DIFFERENTIAL) Performed By: #### 2 02354 #### [place] [address] Erythrocyte distribution width (RBC) [Ratio] 13.2 % Normal 12.0 - 15.6 [facility] Comment on above: Performed By: #### 2 13171 #### [place] [address] Hematocrit (Bld) [Volume fraction] 37.7 % Low 40.0 - 52.0 [facility] Comment on above: Performed By: #### 2 88480 #### [facility],[address],[place] [address] Hemoglobin (Bld) [Mass/Vol] 12.9 g/dL Low 13.0 - 17.5 [facility] Comment on above: Performed By: #### 2 77182 #### [facility],[address] [place] [address] 06120 MCH (RBC) [Entitic mass] 32 pg Normal 27 - 33 [facility] Comment on above: Performed By: #### 2 37947 #### [facility],[address] [place] [address] 12969 MCHC (RBC) [Mass/Vol] 34 X10 3 Normal 32 - 36 [facility] Comment on above: Performed By: #### 2 14928 #### [facility],[address] [place] [address] 12151 MCV (RBC) [Entitic vol] 94 fL Normal 81 - 98 [facility] Comment on above: Performed By: #### 2 03618 #### [facility],[address] [place] [address] 26108 Platelet mean volume (Bld) [Entitic vol] 7.3 fL Normal 6.4 - 10.5 [facility] Comment on above: Performed By: #### 2 70102 #### [facility],[address] [place] [address] 06451 Platelets (Bld) [#/Vol] 166 x10EE3/UL Normal 150 - 450 [facility] Comment on above: Performed By: #### 2 83668 #### [facility],[address] [place] [address] 88619 RBC (Bld) [#/Vol] 4.00 x 10EE6/UL Low 4.50 - 6.00 [facility] Comment on above: Performed By: #### 2 49228 #### [facility],[address] [place] [address] 96529 WBC (Bld) [#/Vol] 8.7 x 10EE3/UL Normal 4.5 - 10.8 Gerald gregg [facility] Comment on above: Performed By: #### 2 93811 #### Johan [facility],[address] [place] [address] 74643 CULTURE URINEon 08-06-2019 CULTURE URINE CULTURE URINE _URINE CULTURE_ M I C R O B I O L O G Y R E P O R T FINAL ------- Antimicrobial Susceptibility and Organism Identification Report -------- Specimen Number : [id number] Requested : 08/06/19 Specimen Source : CLEAN CATCH URINE Collected : 08/06/19 03:10 Arredondo of Isolation : MEME HUANG Received : 08/06/19 03:10 Requesting Physician : FLORECITA -- Patient/Specimen Tests and Comments Specimen Comments -------- -------- FINAL REPORT: NO GROWTH AT 48 HOURS -- Tech : Source : CLEAN CATCH URINE ID # : [id number] FINAL Report Date : / / : Collected : 08/06/19 03:10 08/08/19.1104.BKO. 08/07/19.0711.JLN. 08/08/19.1105.BKO.COMPLETE Normal [facility] Comment on above: Performed By: #### 2 94822 #### [facility],[address] [place] [address] LITHIUMon 08-06-2019 [place] [Moles/Vol] 0.6 mmol/L Normal 0.6 - 1.2 [facility] Comment on above: Performed By: #### 2 66342 #### [facility],[address] [place], [place] [id number] MR MRI BRAIN W/O CONTRASTon 08-06-2019 MR MRI BRAIN W/O CONTRAST [place] [address] Patient: REGGIE LEÓN Phone#: : 1965 Age: 54 Gender: M Pt. Type: Out Account: [id number] Location: Ordering: HODA ZULEMALucia Exam Date: 08/06/2019/8:56 Family Phys: Charge Code: [id number] Physician: Beadle Order #: [id number] DLP Dose#: PROCEDURE: MRI BRAIN WITHOUT CONTRAST [...] Momin MD on 08/06/2019 at 9:51 Normal [facility] RENAL FUNCTION PANELon 08-06 Albumin [Mass/Vol] 3.3 g/dL Low 3.4 - 4.8 [facility] Comment on above: Performed By: #### 2 26282 #### [facility],[address] [place] [address] 03566 B/C RATIO 11 ratio Normal 0 - 30 [facility] Comment on above: Performed By: #### 2 78968 #### [facility],[address] [place] [address] 22248 Calcium [Mass/Vol] 8.9 mg/dL Normal 8.6 - 10.2 [facility] Comment on above: Performed By: #### 2 04971 #### [facility],[address] [place] [address] 49277 Chloride [Moles/Vol] 107 mmol/L Normal 98 - 107 [facility] Comment on above: Performed By: #### 2 09229 #### [facility],[address] [place] [address] 89042 CO2 [Moles/Vol] 26.8 mmol/L Normal 21.0 - 31.0 [facility] Comment on above: Performed By: #### 2 27445 #### [facility],[address] [place] [address] 49624 Creatinine [Mass/Vol] 2.2 mg/dL High 0.7 - 1.3 [facility] Comment on above: Performed By: #### 2 29504 #### [facility],[address] [place] [address] 17645 Glucose [Mass/Vol] 84 mg/dL Normal 74 - 106 [facility] Comment on above: Performed By: #### 2 21411 #### [facility],[address] [place] [address] 97236 Phosphate [Mass/Vol] 3.9 mg/dL Normal 2.7 - 4.9 [facility] Comment on above: Performed By: #### 2 00097 #### [facility],[address] [place] [address] 45385 Potassium [Moles/Vol] 4.1 mmol/L Normal 3.5 - 5.1 [facility] Comment on above: Performed By: #### 2 12104 #### [facility],[address] [place] [address] 32696 RENAL FUNCTION PANEL Normal [facility] Comment on above: Result Comment: JESSICA L FUNCTION PANEL Performed By: #### 2 53369 #### [facility],[address] [place] [address] 11617 Sodium [Moles/Vol] 141 mmol/L Normal 136 - 145 [facility] Comment on above: Performed By: #### 2 59482 #### [facility],[address] [place] [address] 68136 Urea nitrogen [Mass/Vol] 25 mg/dL High 6 - 20 [facility] Comment on above: Performed By: #### 2 93792 #### [facility],[address] [place] [address] 92530 URINALYSISon 08-06-2019 Bilirubin [Mass/Vol] Negative Normal NORMAL: NEGATIVE [facility] Comment on above: Performed By: #### 2 55931 #### [facility],[address] [place] [address] 32465 Blood Negative Normal NORMAL: NEGATIVE [facility] Comment on above: Performed By: #### 2 39778 #### [facility],[address] [place] [address] 80143 Clarity (U) clear Normal NORMAL: CLEAR [facility] Comment on above: Performed By: #### 2 48254 #### [facility],[address] [place] [address] 54484 Color (U) p.yel Normal NORMAL: YELLOW [facility] Comment on above: Performed By: #### 2 11424 #### [facility],[address] [place] [address] 82013 Glucose [Mass/Vol] NORM Normal NORMAL: NORMAL [facility] Comment on above: Performed By: #### 2 81168 #### [facility],[address] [place] [address] 27573 Ketone Negative Normal NORMAL: NEGATIVE [facility] Comment on above: Performed By: #### 2 71729 #### [facility],[address] [place] [address] 32680 Microscopic NOT Normal [facility] Comment on above: Performed By: #### 2 01748 #### [facility],[address] [place] [address] 46756 Nitrite Ql (U) Negative Normal NORMAL: NEGATIVE [facility] Comment on above: Performed By: #### 2 36208 #### [facility],[address] [place] [address] 43276 pH (Bld) 8 Normal NORMAL: 5.0-8.0 [facility] Comment on above: Performed By: #### 2 56604 #### [facility],[address] [place] [address] 93008 Protein (U) [Mass/Vol] Negative Normal JENN L: NEGATIVE [facility] Comment on above: Performed By: #### 2 05693 #### [facility],[address] [place] [address] Sp De Lancey 1.010 Normal NORMAL: 1.010-1.03 0 [facility] Comment on above: Performed By: #### 2 58419 #### [facility],[address] [place] [address] Specimen type Nom (Spec) Clean catch Normal [facility] Comment on above: Performed By: #### 2 18167 #### [facility],[address] [place] [address] Urobilinog NORM Normal NORMAL: NORMAL [facility] Comment on above: Performed By: #### 2 00447 #### [facility],[address] [place] [address] WBC (Bld) [#/Vol] Negative Normal NORMAL: NEGATIVE [facility] Comment on above: Performed By: #### 2 51923 #### [facility],[address] [place] [address] URINE CREATININE AND PROTEIN RATIOon 08-06-2019 CREATININE UR 35.5 mg/dl Normal [facility] Comment on above: Performed By: #### 2 84333 #### [facility],[address] [place] [address] 30066 PC RATIO 0.11 mg/dL Normal 0.00 - 10.00 [facility] Comment on above: Performed By: #### 2 21301 #### [facility],[address] [place] [address] 14618 Protein (U) [Mass/Vol] mg/dL Normal 0.00 - 10.00 [facility] Comment on above: Performed By: #### 2 66893 #### [facility],[address] [place] [address] 84975 Ammoniaon 03-19-2019 Ammonia mass conc (P) 34 umol/L Normal 16-60 [facility] Comment on above: Performed By: #### L ITH #### [facility] [address] [place] [address] Basic Metabolic Panelon 05-0 Anion gap molar conc 13 mmol/L Normal 9-15 [facility] Comment on above: Result Comment: Effe ctive: 12/21/2018 New reference range for this analyte has been established. Performed By: #### L ITH #### [facility] [address] [place] [address] Calcium mass conc 8.8 mg/dL Normal 8.5-9.9 [facility] Comment on above: Result Comment: Effe ctive: 12/21/2018 New reference range for this analyte has been established. Performed By: #### L ITH #### [facility] [address] [place] [address] Chloride molar conc 106 mmol/L Normal 95-107 [facility] Comment on above: Result Comment: Effe ctive: 12/21/2018 New reference range for this analyte has been established. Performed By: #### L ITH #### [facility] [address] [place] [address] CO2 molar conc 22 mmol/L Normal 20-31 [facility] Comment on above: Result Comment: Effe ctive: 12/21/2018 New reference range for this analyte has been established. Performed By: #### L ITH #### [facility] [address] [place] [address] Creatinine mass conc 1.78 mg/dL Critically high 0.70-1.20 [facility] Comment on above: Performed By: #### L ITH #### [facility] [address] [place] [address] GFR/1.73 sq M predicted among blacks MDRD vol rate/area (S/P/Bld) 48.1 mL/min/{1.73_m2} Low >60 [facility] Comment on above: Result Comment: >60 mL/min/1.73m2 EGFR, calc. for ages 18 and older using the MDRD formula (not corrected for weight), is valid for stable renal function. Performed By: #### L ITH #### [facility] [address] [place] [address] GFR/1.73 sq M.predicted MDRD vol rate/area 39.8 mL/min/{1.73_m2} Low >60 [facility] Comment on above: Result Comment: >60 mL/min/1.73m2 EGFR, calc. for ages 18 and older using the MDRD formula (not corrected for weight), is valid for stable renal function. Performed By: #### L ITH #### [facility] [address] [place] [place] [address] Glucose mass conc 84 mg/dL Normal 70-99 [facility] Comment on above: Result Comment: Effe ctive: 12/21/2018 New reference range for this analyte has been established. Performed By: #### L ITH #### [facility] [address] [place] [address] Potassium molar conc 4.4 mmol/L Normal 3.4-4.9 [facility] Comment on above: Result Comment: Effe ctive: 12/21/2018 New reference range for this analyte has been established. Performed By: #### L ITH #### [facility] [address] [place] [address] Sodium molar conc 141 mmol/L Normal 135-144 [facility] Comment on above: Result Comment: Effe ctive: 12/21/2018 New reference range for this analyte has been established. Performed By: #### L ITH #### [facility] [address] [place] [address] Urea nitrogen mass conc 25 mg/dL Critically high 6-20 [facility] Comment on above: Performed By: #### L ITH #### [facility] [address] [place] [address] Valproic Acid /Depakene Leve rahul 03-19-2019 Protein mass conc 62.5 ug/mL Normal 50.0-100.0 [facility] Comment on above: Performed By: #### L ITH #### [facility] [address] [place] [address] Basic Metabolic Panelon 05-0 Anion gap molar conc 14 mmol/L Normal 9-15 [facility] Comment on above: Result Comment: Effe ctive: 12/21/2018 New reference range for this analyte has been established. Performed By: #### L ITH #### [facility] [address] [place] [address] Calcium mass conc 9.1 mg/dL Normal 8.5-9.9 [facility] Comment on above: Result Comment: Effe ctive: 12/21/2018 New reference range for this analyte has been established. Performed By: #### L ITH #### [facility] [address] [place] [address] Chloride molar conc 107 mmol/L Normal 95-107 [facility] Comment on above: Result Comment: Effe ctive: 12/21/2018 New reference range for this analyte has been established. Performed By: #### L ITH #### [facility] [address] [place] [address] CO2 molar conc 22 mmol/L Normal 20-31 [facility] Comment on above: Result Comment: Effe ctive: 12/21/2018 New reference range for this analyte has been established. Performed By: #### L ITH #### [facility] [address] [place] [address] Creatinine mass conc 2.32 mg/dL Critically high 0.70-1.20 [facility] Comment on above: Performed By: #### L ITH #### [facility] [address] [place] [address] GFR/1.73 sq M predicted among blacks MDRD vol rate/area (S/P/Bld) 35.4 mL/min/{1.73_m2} Low >60 [facility] Comment on above: Result Comment: >60 mL/min/1.73m2 EGFR, calc. for ages 18 and older using the MDRD formula (not corrected for weight), is valid for stable renal function. Performed By: #### L ITH #### [facility] [address] [place] [address] GFR/1.73 sq M.predicted MDRD vol rate/area 29.3 mL/min/{1.73_m2} Low >60 [facility] Comment on above: Result Comment: >60 mL/min/1.73m2 EGFR, calc. for ages 18 and older using the MDRD formula (not corrected for weight), is valid for stable renal function. Performed By: #### L ITH #### [facility] [address] [place] [address] Glucose mass conc 97 mg/dL Normal 70-99 [facility] Comment on above: Result Comment: Effe ctive: 12/21/2018 New reference range for this analyte has been established. Performed By: #### L ITH #### [facility] [address] [place] [address] Potassium molar conc 4.5 mmol/L Normal 3.4-4.9 [facility] Comment on above: Result Comment: Effe ctive: 12/21/2018 New reference range for this analyte has been established. Performed By: #### L ITH #### [facility] [address] [place] [address] Sodium molar conc 143 mmol/L Normal 135-144 [facility] Comment on above: Result Comment: Effe ctive: 12/21/2018 New reference range for this analyte has been established. Performed By: #### L ITH #### [facility] [address] [place] [address] Urea nitrogen mass conc 29 mg/dL Critically high 6-20 [facility] Comment on above: Performed By: #### L ITH #### [facility] [address] [place] [address] Basic Metabolic Panelon 05-0 Anion gap molar conc 10 mmol/L Normal 9-15 [facility] Comment on above: Result Comment: Effe ctive: 12/21/2018 New reference range for this analyte has been established. Performed By: #### L ITH #### [facility] [address] [place] [address] Calcium mass conc 8.7 mg/dL Normal 8.5-9.9 [facility] Comment on above: Result Comment: Effe ctive: 12/21/2018 New reference range for this analyte has been established. Performed By: #### L ITH #### [facility] [address] [place] [address] Chloride molar conc 109 mmol/L Critically high 95-107 [facility] Comment on above: Result Comment: Effe ctive: 12/21/2018 New reference range for this analyte has been established. Performed By: #### L ITH #### [facility] [address] [place] [address] CO2 molar conc 24 mmol/L Normal 20-31 [facility] Comment on above: Result Comment: Effe ctive: 12/21/2018 New reference range for this analyte has been established. Performed By: #### L ITH #### [facility] [address] [place] [address] Creatinine mass conc 1.77 mg/dL Critically high 0.70-1.20 [facility] Comment on above: Performed By: #### L ITH #### [facility] [address] [place] [address] GFR/1.73 sq M predicted among blacks MDRD vol rate/area (S/P/Bld) 48.4 mL/min/{1.73_m2} Low >60 [facility] Comment on above: Result Comment: >60 mL/min/1.73m2 EGFR, calc. for ages 18 and older using the MDRD formula (not corrected for weight), is valid for stable renal function. Performed By: #### L ITH #### [facility] [address] [place] [address] GFR/1.73 sq M.predicted MDRD vol rate/area 40.0 mL/min/{1.73_m2} Low >60 [facility] Comment on above: Result Comment: >60 mL/min/1.73m2 EGFR, calc. for ages 18 and older using the MDRD formula (not corrected for weight), is valid for stable renal function. Performed By: #### L ITH #### [facility] [address] [place] [address] Glucose mass conc 95 mg/dL Normal 70-99 [facility] Comment on above: Result Comment: Effe ctive: 12/21/2018 New reference range for this analyte has been established. Performed By: #### L ITH #### [facility] [address] [place] [address] Potassium molar conc 4.8 mmol/L Normal 3.4-4.9 [facility] Comment on above: Result Comment: Effe ctive: 12/21/2018 New reference range for this analyte has been established. Performed By: #### L ITH #### [facility] [address] [place] [address] Sodium molar conc 143 mmol/L Normal 135-144 [facility] Comment on above: Result Comment: Effe ctive: 12/21/2018 New reference range for this analyte has been established. Performed By: #### L ITH #### [facility] [address] [place] [address] Urea nitrogen mass conc 25 mg/dL Critically high 6-20 [facility] Comment on above: Performed By: #### L ITH #### [facility] [address] [place] [address] Ammoniaon 03-12-2019 Ammonia mass conc (P) 20 umol/L Normal 16-60 [facility] Comment on above: Performed By: #### N H3 #### [facility] [address] [place] [address] Basic Metabolic Panelon - Anion gap molar conc 14 mmol/L Normal 9-15 [facility] Comment on above: Result Comment: Effe ctive: 12/21/2018 New reference range for this analyte has been established. Performed By: #### L ITH #### [facility] [address] [place] [address] Calcium mass conc 9.1 mg/dL Normal 8.5-9.9 [facility] Comment on above: Result Comment: Effe ctive: 12/21/2018 New reference range for this analyte has been established. Performed By: #### L ITH #### [facility] [address] [place] [address] Chloride molar conc 109 mmol/L Critically high 95-107 [facility] Comment on above: Result Comment: Effe ctive: 12/21/2018 New reference range for this analyte has been established. Performed By: #### L ITH #### [facility] [address] [place] [address] CO2 molar conc 24 mmol/L Normal 20-31 [facility] Comment on above: Result Comment: Effe ctive: 12/21/2018 New reference range for this analyte has been established. Performed By: #### L ITH #### [facility] [address] [place] [address] Creatinine mass conc 1.94 mg/dL Critically high 0.70-1.20 [facility] Comment on above: Performed By: #### L ITH #### [facility] [address] [place] [address] GFR/1.73 sq M predicted among blacks MDRD vol rate/area (S/P/Bld) 43.6 mL/min/{1.73_m2} Low >60 [facility] Comment on above: Result Comment: >60 mL/min/1.73m2 EGFR, calc. for ages 18 and older using the MDRD formula (not corrected for weight), is valid for stable renal function. Performed By: #### L ITH #### [facility] [address] [place] [address] GFR/1.73 sq M.predicted MDRD vol rate/area 36.0 mL/min/{1.73_m2} Low >60 [facility] Comment on above: Result Comment: >60 mL/min/1.73m2 EGFR, calc. for ages 18 and older using the MDRD formula (not corrected for weight), is valid for stable renal function. Performed By: #### L ITH #### [facility] [address] [place] [address] Glucose mass conc 90 mg/dL Normal 70-99 [facility] Comment on above: Result Comment: Effe ctive: 12/21/2018 New reference range for this analyte has been established. Performed By: #### L ITH #### [facility] [address] [place] [address] Potassium molar conc 4.5 mmol/L Normal 3.4-4.9 [facility] Comment on above: Result Comment: Effe ctive: 12/21/2018 New reference range for this analyte has been established. Performed By: #### L ITH #### [facility] [address] [place] [address] Sodium molar conc 147 mmol/L Critically high 135-144 [facility] Comment on above: Result Comment: Effe ctive: 12/21/2018 New reference range for this analyte has been established. Performed By: #### L ITH #### [facility] [address] [place] [address] Urea nitrogen mass conc 27 mg/dL Critically high 6-20 [facility] Comment on above: Performed By: #### L ITH #### [facility] [address] [place] [address] [place] Levelon 03-12-2019 [place] molar conc 0.8 mmol/L Normal 0.6-1.2 [facility] Comment on above: Performed By: #### L ITH #### [facility] [address] [place] [address] Valproic Acid /Depakene Leve rahul 03-12-2019 Protein mass conc 70.6 ug/mL Normal 50.0-100.0 [facility] Comment on above: Performed By: #### L ITH #### [facility] [address] [place] [address] Basic Metabolic Panelon -2 Anion gap molar conc 13 mmol/L Normal 9-15 [facility] Comment on above: Result Comment: Effe ctive: 12/21/2018 New reference range for this analyte has been established. Performed By: #### B MP #### [facility] [address] [place] [address] Calcium mass conc 8.9 mg/dL Normal 8.5-9.9 [facility] Comment on above: Result Comment: Effe ctive: 12/21/2018 New reference range for this analyte has been established. Performed By: #### B MP #### [facility] [address] [place] [address] Chloride molar conc 108 mmol/L Critically high 95-107 [facility] Comment on above: Result Comment: Effe ctive: 12/21/2018 New reference range for this analyte has been established. Performed By: #### B MP #### [facility] [address] [place] [address] CO2 molar conc 23 mmol/L Normal 20-31 [facility] Comment on above: Result Comment: Effe ctive: 12/21/2018 New reference range for this analyte has been established. Performed By: #### B MP #### [facility] [address] [place] [address] Creatinine mass conc 1.82 mg/dL Critically high 0.70-1.20 [facility] Comment on above: Performed By: #### B MP #### [facility] [address] [place] [address] GFR/1.73 sq M predicted among blacks MDRD vol rate/area (S/P/Bld) 46.9 mL/min/{1.73_m2} Low >60 [facility] Comment on above: Result Comment: >60 mL/min/1.73m2 EGFR, calc. for ages 18 and older using the MDRD formula (not corrected for weight), is valid for stable renal function. Performed By: #### B MP #### [facility] [address] [place] [address] GFR/1.73 sq M.predicted MDRD vol rate/area 38.8 mL/min/{1.73_m2} Low >60 [facility] Comment on above: Result Comment: >60 mL/min/1.73m2 EGFR, calc. for ages 18 and older using the MDRD formula (not corrected for weight), is valid for stable renal function. Performed By: #### B MP #### [facility] [address] [place] [address] Glucose mass conc 82 mg/dL Normal 70-99 [facility] Comment on above: Result Comment: Effe ctive: 12/21/2018 New reference range for this analyte has been established. Performed By: #### B MP #### [facility] [address] [place] [address] Potassium molar conc 4.2 mmol/L Normal 3.4-4.9 [facility] Comment on above: Result Comment: Effe ctive: 12/21/2018 New reference range for this analyte has been established. Performed By: #### B MP #### [facility] [address] [place] [address] Sodium molar conc 144 mmol/L Normal 135-144 [facility] Comment on above: Result Comment: Effe ctive: 12/21/2018 New reference range for this analyte has been established. Performed By: #### B MP #### [facility] [address] [place] [address] Urea nitrogen mass conc 28 mg/dL Critically high 6-20 [facility] Comment on above: Performed By: #### B MP #### [facility] [address] [place] [address] Lipid Panelon 03-09-2019 Cholesterol in HDL mass conc 30 mg/dL Low 40-59 [facility] Comment on above: Result Comment: ATP III [...] CHD Performed By: #### L IPID #### [facility] [address] [place] [address] Cholesterol in LDL mass conc 83 mg/dL Normal 0-129 [facility] Comment on above: Result Comment: ATP III LDL Classification is Optimal. Performed By: #### L IPID #### [facility] [address] [place] [address] Cholesterol mass conc 160 mg/dL Normal 0-199 [facility] Comment on above: Result Comment: ATP III Cholesterol classification is Desirable. Performed By: #### L IPID #### [facility] [address] [place] [address] Triglyceride mass conc 234 mg/dL Critically high 0-150 [facility] Comment on above: Result Comment: ATP III Triglycerides Classification is High. Effective: 12/21/2018 New reference range for this analyte has been established. Performed By: #### L IPID #### [facility] [address] [place] [address] Ammoniaon 03-04-2019 Ammonia mass conc (P) 35 umol/L Normal 16-60 [facility] Comment on above: Performed By: #### N H3 #### [facility] [address] [place] [address] [place] Levelon 03-04-2019 [place] molar conc 0.7 mmol/L Normal 0.6-1.2 [facility] Comment on above: Performed By: #### L ITH #### [facility] [address] [place] [address] TSH w/out Reflexon 9 Thyrotropin Qn 2.880 uIU/mL Normal 0.440-3.86 [facility] Comment on above: Result Comment: Effe ctive: 12/21/2018 New reference range for this analyte has been established. Performed By: #### T SH #### [facility] [address] [place] [address] VITAMIN Don 03-04-2019 VITAMIN D 33.1 ng/mL Normal 30.0-100.0 [facility] Comment on above: Result Comment: (30- 100 ng/mL) Optimum Level This assay accurately quantifies the sum of vitamin D3, 25-Hydroxy and vitamin D2, 25-Hyroxy. Performed By: #### V ITD #### [facility] [address] [place] [address] Valproic Acid /Depakene Leve rahul 03-04-2019 Protein mass conc 25.8 ug/mL Low 50.0-100.0 [facility] Comment on above: Performed By: #### V ALPR #### [facility] [address] [place] [address] Vitamin B12 and Folateon Cobalamin (Vitamin B12) mass conc 340 pg/mL Normal 232-1245 [facility] Comment on above: Performed By: #### B 12FO #### [facility] [address] [place] [address] Folate 10.2 ng/mL Normal 7.3-26.1 [facility] Comment on above: Result Comment: As o f 16, the methodology has changed. Results from this methodology should not be compared with results from previous methodology. Performed By: #### B 12FO #### [facility] [address] [place] [address] Creatinineon 06-06-2018 Creatinine 1.93 mg/dL High 0.58-0.96 [facility] Comment on above: Performed By: #### C RET1, TSH, LI ####[facility] [id number] [place], [place] [phone] eGFR (non-black) 27 . Normal [facility] Comment on above: Performed By: #### C RET1, TSH, LI ####[facility] [id number] [place], [place] [phone] eGFR- Amer. 33 Normal [facility] Comment on above: Performed By: #### C RET1, TSH, LI ####[facility] [id number] [place], [place] [phone] Lithiumon 06-06-2018 [place] 0.8 mmol/L Normal 0.6-1.2 [facility] Comment on above: Performed By: #### C RET1, TSH, LI ####[facility] [id number] [place], [place] [phone] TSHon 06-06-2018 Thyroid stimulating hormone (TSH) 2.350 uU/mL Normal 0.400-5.50 0 [facility] Comment on above: Performed By: #### C RET1, TSH, LI ####[facility] [id number] [place] [phone] Culture, urine Bacteria identified Cx Nom (U) Culture exhibits no growth. [facility] Work Phone: Bacteria identified Cx Nom (U) Positive [facility] Work Phone: Bacteria identified Cx Nom (U) Actinomyces turicensis [facility] Work Phone: Bacteria identified Cx Nom (U) Streptococcus mitis [facility] Work Phone: Vital Signs Date Time Vital Sign Value Performing Clinician Facility 02-26-2025 11:40-0400 Diastolic blood pressure 76 mm[Hg] [facility] Work Phone: [facility] 02-26-2025 11:40-0400 Heart rate 75 /min [facility] Work Phone: [facility] 02-26-2025 11:40-0400 Respiratory rate 18 /min [facility] Work Phone: [facility] 02-26-2025 11:40-0400 SaO2% (BldA) [Mass fraction] 96 % [facility] Work Phone: [facility] 02-26-2025 11:40-0400 Systolic blood pressure 122 mm[Hg] [facility] Work Phone: [facility] 02-26-2025 09:00-0400 Body temperature 98.6 [degF] [facility] Work Phone: [facility] 02-12-2025 14:04-0400 Diastolic blood pressure 55 mm[Hg] [facility] Work Phone: [facility] 02-12-2025 14:04-0400 Heart rate 78 /min [facility] Work Phone: [facility] 02-12-2025 14:04-0400 Respiratory rate 18 /min [facility] Work Phone: [facility] 02-12-2025 14:04-0400 SaO2% (BldA) [Mass fraction] 95 % [facility] Work Phone: [facility] 02-12-2025 14:04-0400 Systolic blood pressure 128 mm[Hg] [facility] Work Phone: [facility] 02-12-2025 09:00-0400 Body temperature 98.6 [degF] [facility] Work Phone: [facility] 09-14-2024 08:49-0400 Body height 176.3 cm Dorota Smith MD Work Phone: [facility] 09-14-2024 08:49-0400 Body mass index (BMI) [Ratio] 39.27 kg/m2 Dorota Smith MD Work Phone: [facility] 09-14-2024 08:49-0400 Body temperature 97.3 [degF] Dorota Smith MD Work Phone: [facility] 09-14-2024 08:49-0400 Body weight 122.05 kg Dorota Smith MD Work Phone: [facility] 09-14-2024 08:49-0400 Diastolic blood pressure 65 mm[Hg] Dorota Smith MD Work Phone: [facility] 09-14-2024 08:49-0400 Heart rate 106 /min Dorota Smith MD Work Phone: [facility] 09-14-2024 08:49-0400 Respiratory rate 14 /min Dorota Smith MD Work Phone: [facility] 09-14-2024 08:49-0400 Systolic blood pressure 104 mm[Hg] Dorota Smith MD Work Phone: [facility] 08-09-2024 10:45-0400 Diastolic blood pressure 68 mm[Hg] [facility] Work Phone: [facility] 08-09-2024 10:45-0400 Heart rate 82 /min [facility] Work Phone: [facility] 08-09-2024 10:45-0400 Respiratory rate 18 /min [facility] Work Phone: [facility] 08-09-2024 10:45-0400 SaO2% (BldA) [Mass fraction] 96 % [facility] Work Phone: [facility] 08-09-2024 10:45-0400 Systolic blood pressure 125 mm[Hg] [facility] Work Phone: [facility] 08-09-2024 07:00-0400 Body temperature 98.4 [degF] [facility] Work Phone: [facility] 07-17-2024 11:09-0400 Body height 182.9 cm Anthony Olivares MD Work Phone: [facility] 07-17-2024 11:09-0400 Body mass index (BMI) [Ratio] 36.48 kg/m2 Anthony Olivares MD Work Phone: [facility] 07-17-2024 11:09-0400 Body weight 122 kg Anthony Olivares MD Work Phone: [facility] 07-17-2024 11:09-0400 Diastolic blood pressure 73 mm[Hg] Anthony Olivares MD Work Phone: [facility] 07-17-2024 11:09-0400 Heart rate 90 /min Anthony Olivares MD Work Phone: [facility] 07-17-2024 11:09-0400 Systolic blood pressure 106 mm[Hg] Anthony Olivares MD Work Phone: [facility] 01-26-2024 12:00-0400 Diastolic blood pressure 62 mm[Hg] [facility] Work Phone: [facility] 01-26-2024 12:00-0400 Heart rate 97 /min [facility] Work Phone: [facility] 01-26-2024 12:00-0400 Respiratory rate 18 /min [facility] Work Phone: [facility] 01-26-2024 12:00-0400 SaO2% (BldA) [Mass fraction] 96 % [facility] Work Phone: [facility] 01-26-2024 12:00-0400 Systolic blood pressure 110 mm[Hg] [facility] Work Phone: [facility] 01-26-2024 07:05-0400 Body temperature 98.6 [degF] [facility] Work Phone: [facility] 12-20-2023 09:51-0500 Body height 177.8 cm Anthony Olivares MD Work Phone: [facility] 12-20-2023 09:51-0500 Body temperature 97.7 [degF] Anthony Olivares MD Work Phone: [facility] 12-20-2023 09:51-0500 Body weight 126.4 kg Anthony Olivares MD Work Phone: [facility] 12-20-2023 09:51-0500 Diastolic blood pressure 68 mm[Hg] Anthony Olivares MD Work Phone: [facility] 12-20-2023 09:51-0500 Heart rate 116 /min Anthony Olivares MD Work Phone: [facility] 12-20-2023 09:51-0500 Systolic blood pressure 97 mm[Hg] Anthony Olivares MD Work Phone: [facility] 02-25-2023 11:04-0400 Body height 171.5 cm Luz Daniel MD Work Phone: [facility] 02-25-2023 11:04-0400 Body temperature 97.9 [degF] Luz Daniel MD Work Phone: [facility] 02-25-2023 11:04-0400 Body weight 146.69 kg Luz Daniel MD Work Phone: [facility] 02-25-2023 11:04-0400 Diastolic blood pressure 86 mm[Hg] Luz Daniel MD Work Phone: [facility] 02-25-2023 11:04-0400 Heart rate 93 /min Luz Daniel MD Work Phone: [facility] 02-25-2023 11:04-0400 Systolic blood pressure 125 mm[Hg] Luz Daniel MD Work Phone: [facility] 11-03-2022 13:05-0500 Body temperature 97.2 [degF] Ashleigh 2 Work Phone: [facility] 11-03-2022 13:05-0500 Diastolic blood pressure 78 mm[Hg] [place] 2 Work Phone: [facility] 11-03-2022 13:05-0500 Heart rate 89 /min [place] 2 Work Phone: [facility] 11-03-2022 13:05-0500 Respiratory rate 18 /min [place] 2 Work Phone: [facility] 11-03-2022 13:05-0500 SaO2% (BldA) [Mass fraction] 95 % [place] 2 Work Phone: [facility] 11-03-2022 13:05-0500 Systolic blood pressure 124 mm[Hg] [place] 2 Work Phone: [facility] 11-03-2022 07:52-0500 Body weight 144.74 kg Ashleigh 2 Work Phone: [facility] 08-27-2022 10:46-0400 Body height 171.5 cm Luz Daniel MD Work Phone: [facility] 08-27-2022 10:46-0400 Body temperature 98.29 [degF] Luz Daniel MD Work Phone: [facility] 08-27-2022 10:46-0400 Body weight 146.06 kg Luz Daniel MD Work Phone: [facility] 08-27-2022 10:46-0400 Diastolic blood pressure 95 mm[Hg] Luz Daniel MD Work Phone: [facility] 08-27-2022 10:46-0400 Heart rate 109 /min Luz Daniel MD Work Phone: [facility] 08-27-2022 10:46-0400 Systolic blood pressure 132 mm[Hg] Luz Daniel MD Work Phone: [facility] 07-27-2022 15:53-0400 Body height 176.5 cm Anthony Olivares MD Work Phone: [facility] 07-27-2022 15:53-0400 Body weight 142.88 kg Anthony Olivares MD Work Phone: [facility] 07-27-2022 15:53-0400 Diastolic blood pressure 85 mm[Hg] Anthony Olivares MD Work Phone: [facility] 07-27-2022 15:53-0400 Heart rate 94 /min Anthony Olivares MD Work Phone: [facility] 07-27-2022 15:53-0400 Systolic blood pressure 128 mm[Hg] Anthony Olivares MD Work Phone: [facility] 05-05-2022 13:15-0400 Body temperature 97.2 [degF] Kidney 1 [facility] 05-05-2022 13:15-0400 Diastolic blood pressure 91 mm[Hg] Kidney 1 [facility] 05-05-2022 13:15-0400 Heart rate 116 /min Kidney 1 [facility] 05-05-2022 13:15-0400 Systolic blood pressure 157 mm[Hg] Kidney 1 [facility] 05-05-2022 07:40-0400 SaO2% (BldA) [Mass fraction] 95 % Kidney 1 [facility] 05-05-2022 07:36-0400 Body weight 140.57 kg Kidney 1 [facility] 11-04-2020 15:52-0500 Body Temperature 97.2 [degF] [place], [place] 11-04-2020 15:52-0500 BP Diastolic 74 mm[Hg] [place], [place] 11-04-2020 15:52-0500 BP Systolic 113 mm[Hg] [place], [place] 11-04-2020 15:52-0500 Pulse (Heart Rate) 92 /min [place], [place] 11-04-2020 15:52-0500 Pulse Oximetry 96 % [place], [place] 11-04-2020 15:52-0500 Respiratory Rate 17 /min [place], [place] 11-04-2020 05:31-0500 Body weight 114.31 kg [place], [place] Encounters Encounter Date Encounter Type Care Provider Facility Start: 04-01-2025 ambulatory Adam CHANDLER Fac ility:[facility] Start: 03-27-2025 ambulatory Alfredo Krishnani lity:[facility] Start: 03-27-2025 Registered Referred Alfredo Phipps - [facility] Start: 03-04-2025 End: 03-04-[address] Elgin Bal MD Work Phone: [facility] Work Phone: Start: 03-04-2025 End: 03-04-2025 Departed Referred Adam Ferraro [facility] [facility] Start: 03-04-2025 Registered Referred Adam Ferraro -[place] [facility] Start: 03-04-2025 End: 03-04-2025 ambulatory Adam CHANDLER Facility:[facility] Start: 02-27-2025 End: 02-27-[address] Elgin Bal MD Work Phone: [facility] Work Phone: Start: 02-27-2025 End: 02-27-2025 Departed Referred Alfredo [employer] [employer] Start: 02-27-2025 Registered Referred Alfredo Phipps - [place] [facility] Start: 02-26-2025 End: 02-27-2025 ambulatory ANTHONY OLIVARES Facility:[facility] Start: 02-26-2025 End: 02-26-2025 Subsequent hospital visit by physician Chair [facility] Work Phone: [facility]fusion [facility] Start: 02-25-2025 End: 02-25-[address] Elgin Bal MD Work Phone: [facility] Work Phone: Start: 02-25-2025 End: 02-25-2025 Departed Referred [facility] Start: 02-25-2025 Registered Referred Adam Ferraro [facility] [facility] [employer] Start: 02-25-2025 End: 02-25-2025 ambulatory Adam CHANDLER Facility:[facility] Start: 02-12-2025 ambulatory ANTHONY OLIVARES Facility: [facility] Start: 02-12-2025 End: 02-12-2025 Subsequent hospital visit by physician Chair 3 [facility] Work Phone: Infusion Center Start: 02-11-2025 End: 02-11-[address] Elgin Bal MD Work Phone: [facility] Work Phone: Start: 02-11-2025 End: 02-11-2025 Departed Referred Alfredo [facility] Start: 02-11-2025 Registered Referred Alfredo Phipps - [place] [facility] Start: 02-11-2025 End: 02-11-2025 ambulatory Elgin Bal Facility:[facility] Start: 02-06-2025 End: 02-06-[address] Elgin Bal MD Work Phone: [facility] Work Phone: Start: 02-06-2025 End: 02-06-2025 Departed Referred Alfredo Robertouary [facility] Start: 02-06-2025 Registered Referred Peter Katsaros - [place] [facility] Start: 02-06-2025 End: 02-06-2025 ambulatory Elgin Bal Facility:[facility] Start: 01-30-2025 End: 01-30-2025 Departed Referred Adam Ferraro -[place] [facility] Start: 01-30-2025 End: 01-30-2025 Orders Only Anthony Olivares MD Work Phone: [facility] [place] Start: 01-30-2025 Registered Referred Adam Ferraro -[place] [employer] [employer] Start: 01-30-2025 End: 01-30-2025 ambulatory Aadm CHANDLER Facility:[facility] Start: 01-25-2025 End: 01-25-[address] Elgin Bal MD Work Phone: [facility] Work Phone: Start: 01-25-2025 End: 01-25-2025 Departed Referred Adam Ferraro -[place] [facility] Start: 01-25-2025 End: 01-25-2025 ambulatory Adam Jasmine RAMESH Facility:[facility] Start: 01-03-2025 End: 01-03-[address] Elgin Bal MD Work Phone: [facility] Work Phone: Start: 01-03-2025 End: 01-03-2025 Departed Referred Adam Ferraro -[place] [employer] [employer] Start: 01-03-2025 Registered Referred Adam Ferraro [facility] [facility] Start: 01-02-2025 End: 01-03-[address] Elgin Bal MD Work Phone: [facility] Work Phone: Start: 01-02-2025 End: 01-02-2025 Departed Referred Adam [facility]aro [facility] [facility] Start: 01-02-2025 Registered Referred Adam Ferraro [facility] [employer] Start: 01-02-2025 End: 01-02-2025 ambulatory Elgin Bal Facility:[facility] Start: 12-28-2024 End: 12-28-[address] Elgin Bal MD Work Phone: [facility] Work Phone: Start: 12-28-2024 End: 12-28-2024 Departed Referred Adam Ferraro [facility] [facility] Start: 12-28-2024 End: 12-28-2024 ambulatory Adam Wandamele RAMESH Facility:[facility] Start: 11-27-2024 End: 11-27-2024 Departed Referred Adam [facility]aro [facility] [employer] [employer] Start: 11-27-2024 End: 11-27-2024 ambulatory Adam CHANDLER Facility:[facility] Start: 11-20-2024 End: 11-23-2024 ambulatory Anthony Olivares MD Work Phone: [facility] [place] Start: 11-15-2024 End: 11-15-2024 Departed Referred Adam Ferraro [facility] [facility] Start: 11-15-2024 End: 11-15-2024 ambulatory Elgin Bal Facility:[facility] Start: 09-27-2024 End: 09-27-2024 Departed Referred Adam Ferraro [facility] [facility] Start: 09-27-2024 End: 09-27-2024 ambulatory Adam Wandamele CHANDLER Facility:[facility] Start: 09-14-2024 End: 09-14-2024 Patient encounter procedure Dorota Smith MD Work Phone: [facility]umatology [facility] Ar[facility] Comment on above: 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 Start: 09-12-2024 End: 09-12-2024 ambulatory Adam CHANDLER Facility:[facility] Start: 08-27-2024 End: 08-27-2024 ambulatory Adam CHANDLER Facility:[facility] Start: 08-10-2024 ambulatory Alfredo CHANDLER Faci lity:[facility] Start: 08-09-2024 ambulatory ANTHONY OLIVARES Facility: [facility] Start: 08-09-2024 End: 08-09-2024 Subsequent hospital visit by physician Chair [facility] Work Phone: Infusion Center Comment on above: Rituximab Start: 07-31-2024 End: 07-31-2024 ambulatory Adam CHANDLER Facility:[facility] Start: 07-17-2024 End: 07-17-2024 Patient encounter procedure Anthony Olivares MD Work Phone: [facility]ney [facility] Comment on above: 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); Stage 3b chronic kidney disease (HCC); Benign hypertension with chronic kidney disease Start: 07-17-2024 End: 07-20-2024 ambulatory Anthony Olivares MD Work Phone: [facility] [place] Start: 06-29-2024 End: 06-29-2024 ambulatory Adam CHANDLER Facility:[facility] Start: 06-27-2024 End: 06-27-2024 ambulatory Alfredo CHANDLER Facility:[facility] Start: 06-22-2024 End: 06-22-2024 ambulatory Adam CHANDLER Facility:[facility] Start: 06-08-2024 End: 06-08-2024 ambulatory Adam CHANDLER Facility:[facility] Start: 05-28-2024 End: 05-28-2024 ambulatory Adam Ferraro OLS Facility:[facility] Start: 05-25-2024 End: 05-25-2024 ambulatory Adam CHANDLER Facility:[facility] Start: 05-21-2024 Telephone encounter Dorota hameed MD Work Phone: [facility] Rheumatology [facility] Arthritis Comment on above: No Show Start: 04-27-2024 ambulatory Alfredo CHANDLER Faci lity:[facility] Start: 03-19-2024 Telephone encounter Ronny Coreas MD Work Phone: [facility]ney [facility] Start: 03-19-2024 End: 03-19-2024 ambulatory RONNY COREAS Facility:[facility] Start: 03-19-2024 End: 03-19-2024 Office outpatient visit 15 minutes Ronny Coreas MD Work Phone: Kidney Medicine Comment on above: Vasculitis (HCC) (Pr imary Dx); Stage 3b chronic kidney disease (HCC); 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); Benign hypertension with chronic kidney disease Start: 02-03-2024 End: 02-03-2024 ambulatory [facility] Work Phone: Start: 02-03-2024 End: 02-03-2024 Departed Referred [facility] Start: 01-26-2024 End: 01-26-2024 Subsequent hospital visit by physician Chair [facility] Work Phone: Infusion Center Comment on above: Rituximab Start: 01-06-2024 End: 01-06-2024 ambulatory [facility] Work Phone: Start: 01-06-2024 End: 01-06-2024 Departed Referred [facility] [facility] Start: 12-29-2023 Orders Only Babak Drummond RN [facility] Start: 12-27-2023 Orders Only Anthony Olivares MD Work Phone: Kidney Medicine [facility] Start: 12-23-2023 Telephone encounter Nuria noyola RN Kidney Medicine Comment on above: Appointment Start: 12-20-2023 End: 12-20-2023 ambulatory Anthony Olivares MD Work Phone: [facility] Start: 12-20-2023 End: 12-20-2023 Patient encounter procedure Anthony Olivares MD Work Phone: [facility] Comment on above: 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); Stage 3b chronic kidney disease (HCC); Benign hypertension with chronic kidney disease Start: 12-09-2023 End: 12-09-2023 ambulatory [facility] Work Phone: Start: 12-09-2023 End: 12-09-2023 Departed Referred [facility] [facility] Start: 11-16-2023 End: 11-16-2023 [facility] Start: 11-16-2023 [facility] Start: 11-11-2023 End: 11-11-2023 ambulatory [facility] Work Phone: Start: 11-11-2023 End: 11-11-2023 [facility] Start: 11-11-2023 [facility] Start: 10-27-2023 End: 10-27-2023 ambulatory [facility] Work Phone: Start: 10-27-2023 End: 10-27-2023 [facility] Start: 10-14-2023 End: 10-14-2023 ambulatory [facility] Work Phone: Start: 10-14-2023 End: 10-14-2023 [facility] Start: 09-27-2023 End: 09-27-2023 ambulatory [facility] Work Phone: Start: 09-27-2023 End: 09-27-2023 [facility] Start: 09-27-2023 [facility] Start: 09-16-2023 End: 09-16-2023 ambulatory [facility] Work Phone: Start: 09-16-2023 End: 09-16-2023 [facility] Start: 08-29-2023 Telephone encounter Dorota hameed MD Work Phone: [facility] Rheumatology and Ar[facility]ritis Comment on above: Patient Update Start: 08-26-2023 Telephone encounter Luz Daniel MD Work Phone: [facility]ritis [facility] [place] Comment on above: NO SHOW Start: 08-19-2023 End: 08-19-2023 ambulatory [facility] Work Phone: Start: 08-19-2023 End: 08-19-2023 Departed Referred [facility] [facility] Start: 07-28-2023 End: 07-28-2023 Departed Referred [facility] [facility] Start: 07-28-2023 Registered Referred [facility] [facility] Start: 07-24-2023 Registered Referred [facility] [facility] Start: 07-22-2023 End: 07-22-2023 ambulatory [facility] Work Phone: Start: 07-22-2023 End: 07-22-2023 [facility] Start: 06-24-2023 End: 06-24-2023 ambulatory [facility] Work Phone: Start: 06-24-2023 End: 06-24-2023 [facility] Start: 06-24-2023 Registered Referred [facility] [facility] Start: 05-30-2023 End: 05-30-2023 ambulatory [facility] Work Phone: Start: 05-30-2023 End: 05-30-2023 [facility] Start: 05-30-2023 Registered Referred [facility] [facility] Start: 05-27-2023 End: 05-27-2023 ambulatory [facility] Work Phone: Start: 05-27-2023 End: 05-27-2023 Departed Referred [facility] [facility] Start: 05-27-2023 Registered Referred [facility] [facility] Start: 05-19-2023 End: 05-19-2023 ambulatory [facility] Work Phone: Start: 05-19-2023 End: 05-19-2023 Departed [facility] Start: 05-19-2023 Registered Referred [facility] Start: 04-29-2023 End: 04-29-2023 ambulatory [facility] Work Phone: Start: 04-29-2023 End: 04-29-2023 Departed Referred [facility] Start: 04-29-2023 [facility]istered [facility] Start: 04-27-2023 End: 04-27-2023 ambulatory [facility] Work Phone: Start: 04-27-2023 End: 04-27-2023 Departed Referred [facility] Start: 04-04-2023 End: 04-04-2023 Departed Referred [facility] Start: 04-01-2023 End: 04-01-2023 Departed Referred [facility] Start: 03-04-2023 End: 03-04-2023 ambulatory [facility] Work Phone: Start: 03-04-2023 End: 03-04-2023 Departed Referred [facility] Start: 02-25-2023 End: 02-25-2023 Patient encounter procedure Luz Daniel MD Work Phone: [facility] Arthritis and [facility]umatology [place] Comment on above: Rheumatoid arthritis involving both hands 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 rheumatoid factor (HCC) (Primary Dx); 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) Start: 02-25-2023 End: 02-25-2023 ambulatory [facility] Work Phone: Start: 02-25-2023 End: 02-25-2023 Departed Referred [facility] Start: 02-04-2023 End: 02-04-2023 ambulatory [facility] Work Phone: Start: 02-04-2023 End: 02-04-2023 Departed Referred [facility] [facility] Start: 02-04-2023 Registered Referred [facility] [facility] Start: 01-25-2023 End: 01-25-2023 ambulatory [facility] Work Phone: Start: 01-25-2023 End: 01-25-2023 Departed Referred [facility] [facility] Start: 01-25-2023 [facility] [facility] Start: 01-19-2023 End: 01-19-2023 Departed Referred [facility] [facility] Start: 01-19-2023 Registered Referred [facility] [facility] Start: 01-07-2023 End: 01-07-2023 ambulatory [facility] Work Phone: Start: 01-07-2023 End: 01-07-2023 Departed [facility] Start: 01-07-2023 Registered Referred [facility] [facility] Start: 12-28-2022 End: 12-28-2022 ambulatory [facility] Work Phone: Start: 12-28-2022 End: 12-28-2022 Departed Referred [facility] [facility] Start: 12-28-2022 Registered Referred [facility] [facility] Start: 12-15-2022 End: 12-15-2022 Departed Referred [facility] [facility] Start: 12-15-2022 Registered Referred [facility] [facility] Start: 12-10-2022 End: 12-10-2022 ambulatory [facility] Work Phone: Start: 12-10-2022 End: 12-10-2022 Dep[facility]ed [facility] Start: 11-17-2022 End: 11-17-2022 ambulatory [facility] Work Phone: Start: 11-17-2022 End: 11-17-2022 [facility] Start: 11-17-2022 [facility] Start: 11-12-2022 End: 11-12-2022 [facility] Start: 11-12-2022 [facility] Start: 11-03-2022 End: 11-03-2022 Patient encounter procedure Kidney Med Main Infusion Chair 1 Kidney Medicine Comment on above: 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) Start: 11-02-2022 Orders Only Adam Tee MD Work Phone: Kidney Medicine Main [place] Comment on above: 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) Start: 10-27-2022 End: 10-27-2022 ambulatory [facility] Work Phone: Start: 10-27-2022 End: 10-27-2022 [facility] Start: 10-27-2022 [facility] Start: 10-15-2022 End: 10-15-2022 [facility] Start: 10-15-2022 [facility] Start: 09-27-2022 End: 09-27-2022 ambulatory [facility] Work Phone: Start: 09-27-2022 End: 09-27-2022 [facility] Start: 09-27-2022 [facility] Start: 09-17-2022 End: 09-17-2022 ambulatory [facility] Work Phone: Start: 09-17-2022 End: 09-17-2022 [facility] Start: 09-17-2022 [facility] Start: 08-27-2022 End: 08-27-2022 Patient encounter procedure Luz Daniel MD Work Phone: [facility] Arthritis and Rheumatology [place] Comment on above: Rheumatoid arthritis involving both hands 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 rheumatoid factor (HCC) (Primary Dx) Start: 08-27-2022 End: 08-27-2022 Departed Referred [facility] Start: 08-27-2022 Registered Referred [facility] Start: 08-23-2022 End: 08-23-2022 ambulatory [facility] Work Phone: Start: 08-23-2022 End: 08-23-2022 Departed Referred [facility] Start: 08-23-2022 Registered Referred [facility] Start: 08-12-2022 End: 08-12-2022 ambulatory [facility] Work Phone: Start: 08-12-2022 End: 08-12-2022 Departed Referred [facility] Start: 07-28-2022 End: 07-28-2022 ambulatory [facility] Work Phone: Start: 07-28-2022 End: 07-28-2022 [facility]ed [facility] Start: 07-28-2022 Registered Referred [facility] Start: 07-27-2022 End: 07-27-2022 Patient encounter procedure Anthony Olivares MD Work Phone: Kidney [facility] Comment on above: 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); Stage 3a chronic kidney disease (HCC) Start: 07-27-2022 ambulatory Anthony Olivares MD Work Phone: [facility] Start: 07-15-2022 End: 07-15-2022 ambulatory [facility] Work Phone: Start: 07-15-2022 End: 07-15-2022 Departed Referred [facility] Start: 07-15-2022 Registered [facility] Start: 06-28-2022 End: 06-28-2022 ambulatory [facility] Work Phone: Start: 06-28-2022 End: 06-28-2022 Departed Referred [facility] Start: 06-28-2022 Registered Referred [facility] Start: 06-17-2022 End: 06-17-2022 ambulatory [facility] Work Phone: Start: 06-17-2022 End: 06-17-2022 Departed Referred [facility] Start: 05-27-2022 End: 05-27-2022 Departed Referred [facility] Start: 05-20-2022 End: 05-20-2022 Departed Referred [facility] Start: 05-05-2022 Patient encounter procedure Anthony Olivares MD Work Phone: Kidney Medicine Main [place] Comment on above: Granulomatosis with polyangiitis with [...] (HCC) Start: 04-27-2022 End: 04-27-2022 Departed Referred [facility] Start: 04-27-2022 Registered Referred [facility] Start: 04-22-2022 End: 04-22-2022 [facility] Start: 04-22-2022 [facility] Start: 04-21-2022 End: 04-21-2022 [facility] Start: 04-21-2022 [facility] Start: 04-06-2022 End: 04-06-2022 [facility] Start: 04-06-2022 [facility] Start: 04-05-2022 End: 04-05-2022 [facility] Start: 04-05-2022 [facility] Start: 04-02-2022 End: 04-02-2022 [facility] Start: 04-02-2022 [facility] Start: 03-30-2022 Orders Only Anthony Olivares MD Work Phone: Kidney Medicine [facility] Comment on above: Granulomatosis with polyangiitis, unspecified whether renal involvement (HCC) (Primary Dx) Start: 03-25-2022 End: 03-25-2022 [facility] Start: 03-25-2022 [facility] Start: 03-19-2022 End: 03-19-2022 [facility] Start: 03-19-2022 [facility]istered [facility] Start: 02-25-2022 End: 02-25-2022 [facility]ed [facility] Start: 02-25-2022 [facility] Start: 02-18-2022 End: 02-18-2022 Departed Referred [facility] Start: 01-28-2022 End: 01-28-2022 Departed [facility] Start: 01-28-2022 Registered [facility]erred [facility] Start: 01-25-2022 End: 01-25-2022 Departed [facility] Start: 01-25-2022 Registered [facility] Start: 01-04-2022 End: 01-04-2022 Departed [facility] [employer] Start: 01-04-2022 Registered [facility] Start: 12-07-2021 End: 12-07-2021 Departed [facility] [employer] Start: 12-03-2021 Registered [facility] Start: 11-09-2021 Registered [facility] [employer] Start: 11-05-2021 Registered [facility] Start: 10-28-2020 End: 11-04-2020 Evaluation and management of inpatient Otf Long Work Phone: [facility] Comment on above: Pneumonia due to COV ID-19 virus (Primary Dx); Hypoxia; Hypokalemia; Stage 3 chronic kidney disease, unspecified whether stage 3a or 3b CKD Start: 11-14-2019 Encounter for genera l adult medical examination without abnormal findings [facility] Start: 11-14-2019 End: 08-05-2020 Patient encounter procedure [facility] Start: 08-06-2019 End: 08-06-2019 Patient encounter procedure [facility] Start: 10-21-2009 End: 01-29-2013 Patient encounter status Ronny Coreas MD Work Phone: [facility] Encounter for genera l adult medical examination without abnormal findings [facility] Procedures Date Procedure Procedure Detail Performing Clinician Start: 02-27-[address] Elgin Bal MD Work Phone: Start: 01-30-[address] Elgin Bal MD Work Phone: Start: 01-03-[address] Elgin Bal MD Work Phone: Start: 01-03-2025 Urine microalbumin/creatinine ratio measurement Dr. Elgin Bal MD Work Phone: Comment on above: Test not performed Start: 01-02-2025 Assay of phosphorus inorganic Dr. Elgin Bal MD Work Phone: Start: 01-02-[address] Elgin Bal MD Work Phone: [...] exam ches t 2 views Imola K [employer] Work Phone: Start: 11-03-2020 ADD ON LAB TEST Imola [facility] [employer] Work Phone: Start: 11-03-2020 Blood count complete auto&auto difrntl wbc Imola K [employer] Work Phone: Start: 11-03-2020 MANUAL DIFFERENTIAL Imo la K [employer] Work Phone: Start: 11-03-2020 Procalcitonin (pct) Imo la [facility] [employer] Work Phone: Start: 11-02-2020 Assay of ferritin Imola [facility] [employer] Work Phone: Start: 11-02-2020 Blood count complete auto&auto difrntl wbc Imola [facility] [employer] Work Phone: Start: 11-02-2020 Blood count complete automated Imola [facility] [employer] Work Phone: Start: 11-02-2020 C-reactive protein Imol [...] Work Phone: Start: 10-29-2020 Lactate dehydrogenase ldh Imjaqueline Diaz Work Phone: Start: 10-29-2020 Procalcitonin (pct) [...] Start: 10-28-2020 Comprehensive metabo lic panel Andrew Silver Work Phone: Start: 10-28-2020 Natriuretic peptide Bruce [...] Comment: URIN ALYSIS Performed By: #### [id number] #### [place] [id number] Start: 04-08-2020 Urinalysis HODA WYATT Comment on above: Result Comment: URIN ALYSIS Performed By: #### 2 [id number] #### [place] [id number] Start: 02-04-2020 Urinalysis HODA WYATT Comment on above: Result Comment: URIN ALYSIS Performed By: #### 2 [id number] #### [place] [id number] Start: 01-07-2020 Urinalysis HODA WYATT Comment on above: Result Comment: URIN ALYSIS Performed By: #### 2 [id number] #### [place] [id number] Start: 12-10-2019 Urinalysis HODA WYATT Comment on above: Result Comment: URIN ALYSIS Performed By: #### 2 [id number] #### [place] [address] Start: 11-05-2019 Urinalysis HODA WYATT Comment on above: Result Comment: URIN ALYSIS Performed By: #### 2 [id number] #### [place] [id number] Start: 10-08-2019 Urinalysis HODA WYATT Comment on above: Result Comment: URIN ALYSIS Performed By: #### 2 [id number] #### [place] [id number] Start: 09-10-2019 Urinalysis HODA WYATT Comment on above: Result Comment: URIN ALYSIS Performed By: #### 2 [id number] #### [place] [address] Start: 08-10-2019 Adult depression scr eening salo Olivares MD Work Phone: Start: 08-06-2019 Urinalysis [facility]ODA [facility]YATT Comment on above: Result Comment: URIN ALYSIS Performed By: #### 2 [id number] #### Johan [facility],[address] [place] [id number] Start: 07-23-2019 Colonoscopy Anthony rosa MD Work Phone: Start: 08-09-2018 Lipid 1996 panel - S ellen or Plasma Luz Daniel MD Work Phone: Urine culture Urine culture Plan of Treatment Date Care Activity Detail Author Start: 12-20-2028 Lipid panel Lipid Screening [facility] Start: 12-20-2026 Diabetes Screening Diabetes Screenin g [facility] Start: 09-16-2025 End: 09-16-2025 Patient encounter procedure 09/16/2025 9:00 AM EST Office Visit [facility] [address] [place], [place] [phone] Dorota Smith MD [address] [place], [place] [phone] 6 months in office PA [facility] Comment on above: 6 months in office P A Start: 09-14-2025 BP Controlled (<130/80) BP Controlle d (<130/80) [facility] Start: 07-17-2025 BP Controlled (<130/80) BP Controlle d (<130/80) [facility] Start: 05-23-2025 End: 05-23-2025 Patient encounter procedure 05/23/2025 4:00 PM EDT Office Visit [facility] [place] [address] [address] Anthony Olivares MD [address] [place] [address] Virtual f/u per Dr Olivares.I spoke with Nursing Facility where patient is at [facility] [place] Comment on above: Virtual f/u per Dr Leonie herrera.I spoke with Nursing Facility where patient is at Start: 03-20-2025 End: 03-20-2025 Patient encounter procedure 03/20/2025 9:00 AM EDT Office Visit [facility]ology [facility] Arth[facility] [address] [place], [place] [phone] Leeann Lopez PATremayne [address] [place], [place] [phone] 6 months in office PA [facility] Comment on above: 6 months in office P A Start: 02-26-2025 End: 02-26-2025 Patient encounter procedure 02/26/2025 9:00 AM EDT Appointment [facility] [address] [place] [phone] Ignacio Jack, granulomatosis, () Infusion Center Comment on above: Dr Ignacio Jack, granulomatosis, () Start: 02-20-2025 Covid-19 Vaccine (9 - Pfizer risk ) Covid-19 Vaccine (9 - Pfizer risk ) [facility] Start: 12-20-2024 BP Controlled (<130/80) BP Controlle d (<130/80) [facility] Start: 12-20-2024 Complete blood count Hemoglobin/Timo tocrit [facility] Start: 12-20-2024 Creatinine measurement Serum Creatin ine [facility] Start: 11-20-2024 End: 11-20-2024 Patient encounter procedure 11/20/2024 11:00 AM EST Office Visit [facility] [address] [place] [id number] [place] [address] [place] [phone] follow up in October per Dr Olivares [facility] Comment on above: follow up in r per Dr Olivares Start: 10-17-2024 Covid-19 Vaccine () Covid-19 Vaccine () [facility] Start: 09-14-2024 End: 09-14-2024 Patient encounter procedure 09/14/2024 9:00 AM EDT [facility] [address] [place], [place] [phone] Dorota Smith MD [address] [place], [place] [address] RA/Trans from Dr Daniel to [facility] General Rheumatology and Arthritis Comment on above: RA/Trans from Dr Ruben welsh to [facility] Start: 08-09-2024 End: 08-09-2024 Patient encounter procedure 08/09/2024 7:00 AM EDT Appointment Infusion Center [address] [place] [phone] rituximab, M32.30 , ignacio(RK) Infusion Center Comment on above: rituximab, M32.30 , ignacio(RK) Start: 07-17-2024 End: 07-17-2024 Patient encounter procedure 07/17/2024 11:20 AM EDT Office Visit [facility] [address] [place] [phone] Anthony Olivares MD [address] [place] [address] Vasculitis Renal follow up [facility] [place] Comment on above: Vasculitis Renal fol low up Start: 07-15-2024 Covid-19 Vaccine ( season) Covid-19 Vaccine ( season) [facility] Start: 07-15-2024 Covid-19 Vaccine ( season) Covid-19 Vaccine ( season) [facility] Start: 07-15-2024 Influenza vaccination Influenza Vacc ine (#1) [facility] Start: 05-21-2024 End: 05-21-2024 Patient encounter procedure 05/21/2024 9:20 AM EDT Office Visit [facility] [address] [place] [address] Dorota Smith MD [address] [place], [place] [phone] RA/Trans from Dr Daniel to [facility] General Rheumatology and Arthritis Comment on above: RA/Trans from Dr Ruben welsh to [facility] Start: 03-09-2024 Lipid panel Lipid Screening [facility] Start: 02-21-2024 PROSTATE CANCER SCREENING DISCUSSION PROSTATE CANCER SCREENING DISCUSSION [facility] Start: 02-21-2024 Prostate specific antigen measurement Prostate Cancer Screening Discussion [facility] Start: 12-20-2023 End: 03-20-2024 25-hydroxyvitamin D3 [Mass/volume] in Serum or Plasma [facility] Work Phone: Comment on above: Expected: 12/20/2023 , Expires: 03/20/2024 Start: 12-12-2023 Covid-19 Vaccine () Covid-19 Vaccine () [facility] Start: 11-14-2023 Behavioral Health Screening Behavioral Health Screening [facility] Start: 11-14-2023 [facility] Start: 11-04-2023 Diabetes Screening Diabetes Screenin g [facility] Start: 11-03-2023 BP CONTROLLED (<130/80) BP CONTROLLE D (<130/80) [facility] Start: 09-18-2023 DIABETES SCREEN DIABETES SCREEN [facility] Start: 09-18-2023 Diabetes Screening Diabetes Screenin [facility] Start: 08-09-2023 Lipid 1996 panel - S ellen or Plasma Lipid Screening [facility] Start: 08-09-2023 LIPID SCREEN LIPID SCREEN [facility] Start: 07-15-2023 Covid-19 Vaccine () Covid-19 Vaccine () [facility] Start: 07-15-2023 Influenza vaccination [facility] Start: 2023 RSV Vaccine (1 - 1-d ose 60+ series) RSV Vaccine (1 - 1-dose 60+ series) [facility] Start: 2023 RSV Vaccine (1 - Ris k 60-74 years 1-dose series) RSV Vaccine (1 - Risk 60-74 years 1-dose series) [facility] Start: 11-14-2022 DEPRESSION ASSESSMENT DEPRESSION ASS ESSMENT [facility] Start: 11-03-2022 End: 11-03-2023 Chronic hepatitis differentiation between hepatitis B and C virus panel - Serum or Plasma HEP REMOTE PANEL BL Lab Routine 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) Expected: 11/03/2022, Expires: 11/03/2023 [facility] Work Phone: Comment on above: Expected: 11/03/2022 , Expires: 11/03/2023 Start: 07-23-2022 Colonoscopy COLONOSCOPY [facility] Start: 07-23-2022 COLORECTAL CANCER SCREENING COLORECTAL CANCER SCREENING [facility] Start: 07-23-2022 Screening for malign ant neoplasm of colon [facility] Start: 07-15-2022 Influenza vaccination INFLUENZA (#1) [facility] Start: 04-29-2022 COVID-19 VACCINE (6 - Booster for Pfizer series) COVID-19 VACCINE (6 - Booster for Pfizer series) [facility] Start: 01-04-2022 COVID-19 VACCINE (5 - Booster for Pfizer series) COVID-19 VACCINE (5 - Booster for Pfizer series) [facility] Start: 11-14-2021 DEPRESSION ASSESSMENT DEPRESSION ASS ESSMENT [facility] Start: 11-04-2021 Creatinine measurement [facility] Start: 11-04-2021 Potassium monitoring Potassium monit oring [facility] Start: 11-02-2021 HEMOGLOBIN/HEMATOCRIT HEMOGLOBIN/HEM ATOCRIT [facility] Start: 09-18-2021 SERUM CREATININE SERUM CREATININE Cl [facility] Start: 11-09-2020 Influenza vaccination LUNG CANCER SC REENING [facility] Start: 11-09-2020 Screening for malign ant neoplasm of lung Lung Cancer Screening [facility] Start: 08-10-2020 Adult depression screening assessment DEPRESSION SCREENING [facility] Start: 07-15-2020 Influenza vaccination Flu vaccine (# 1) [employer] Start: 02-21-2020 ANNUAL PCP TEAM EVP [employer] DIPTI DISEASE VISIT ANNUAL PCP TEAM CHRONIC DISEASE VISIT [facility] Start: 07-10-2019 PNEUMOCOCCAL (3 - PP SV23 if available, else PCV20) PNEUMOCOCCAL (3 - PPSV23 if available, else PCV20) [facility] Start: 07-10-2019 PNEUMOCOCCAL (3 - PP SV23 or PCV20) PNEUMOCOCCAL (3 - PPSV23 or PCV20) [facility] Start: 07-10-2019 Pneumococcal vaccination Pneum ococcal Vaccine (3 - PPSV23 or PCV20) [facility] Start: 09-04-2018 Pneumococcal vaccination Pneum ococcal Vaccine (3 of 3 - PPSV23 or PCV20) [facility] Start: 08-16-2014 TWO PNEUMOVAX 5 YEAR S APART PRIOR TO AGE 65 (#2) TWO PNEUMOVAX 5 YEARS APART PRIOR TO AGE 65 (#2) [facility] Start: 2013 SHINGRIX VACCINE (1 of 2) SHINGRIX VACCINE (1 of 2) [facility] Start: 2008 COLOGUARD (FIT-DNA) COLOGUARD (FIT-D NA) [facility] Start: [address] COLONOGRAPHY [facility] Start: 2008 FECAL OCCULT BLOOD FECAL OCCULT BLOO D [facility] Start: 2008 Screening for malign ant neoplasm of colon [facility] Start: 2008 SIGMOIDOSCOPY SIGMOIDOSCOPY [facility] Start: 1982 SHINGRIX VACCINE (1 of 2) SHINGRIX VACCINE (1 of 2) [facility] Start: 1982 Urine microalbumin profile [facility] Start: 1981 Annual PCP Team Frame Table Operator dipti Disease Visit Annual PCP Team Chronic Disease Visit [facility] Start: 1981 Anxiety Screening Anxiety Screening [facility] Start: 1981 BP CONTROLLED (<130/80) BP CONTROLLE D (<130/80) [facility] Start: 1981 Depression Screening Depression Scre ening [facility] CBC Auto Differential CBC Auto D ifferential Lab Routine Daily until discontinued starting 11/03/2020, 2 [facility] [place] Comment on above: Daily until disconti nued starting 11/03/2020, 2 completed End: 12-19-2024 CBC W Auto Differential panel - Blood CBC + DIFF Lab Routine Stage 3b chronic kidney disease (HCC) 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) Once per month for 13 Occurrences starting 12/20/2023 until 12/19/2024, 1 completed [facility] Work Phone: Comment on above: Once per month for 1 3 Occurrences starting 12/20/2023 until 12/19/2024, 1 completed End: 12-19-2024 Comprehensive metabolic 2000 panel - Serum or Plasma COMP METABOLIC PANEL Lab Routine Stage 3b chronic kidney disease (HCC) 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) Once per month for 13 Occurrences starting 12/20/2023 until 12/19/2024, 1 completed [facility] Work Phone: Comment on above: Once per month for 1 3 Occurrences starting 12/20/2023 until 12/19/2024, 1 completed Comprehensive Metabo lic Panel w/ Reflex to MG Comprehensive Metabolic Panel w/ Reflex to MG Lab Routine Daily until discontinued starting 10/28/2020, 7 completed [employer] [place], [place] Comment on above: Daily until disconti nued starting 10/28/2020, 7 completed Nasal Cannula Oxygen Nasal Cannu la Oxygen Respiratory Care Routine Daily until discontinued starting 10/28/2020 [facility], [place] Comment on above: Daily until disconti nued starting 10/28/2020 Nebulizer therapy HHN Treatment Respiratory Care Routine 0600, 1000, 1400, 1800, 2200 until discontinued starting 10/30/2020 [facility], [place] Comment on above: 0600, 1000, 1400, 18 00, 2200 until discontinued starting 10/30/2020 Oxygen therapy [[facility] Data Set] Initiate Oxygen Therapy Protocol Respiratory Care Routine Daily until discontinued starting 10/28/2020 [facility], [place] Comment on above: Daily until disconti nued starting 10/28/2020 End: 12-19-2024 Phosphate [Mass/volume] in Serum or Plasma PHOSPHORUS INORGANIC Lab Routine Stage 3b chronic kidney disease (HCC) 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) Once per month for 13 Occurrences starting 12/20/2023 until 12/19/2024, 1 completed [facility] Work Phone: Comment on above: Once per month for 1 3 Occurrences starting 12/20/2023 until 12/19/2024, 1 completed End: 12-19-2024 Protein/Creatinine [Mass Ratio] in Urine PROTEIN CREATININE RATIO Lab Routine 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) Once per month for 13 Occurrences starting 12/20/2023 until 12/19/2024 [facility] Work Phone: Comment on above: Once per month for 1 3 Occurrences starting 12/20/2023 until 12/19/2024 UA DIP, URINE (POC) UA DIP, URIN E (POC) Lab Routine Screening for genitourinary condition 1 Occurrences starting 11/20/2024 [facility] Work Phone: Comment on above: 1 Occurrences starti ng 11/20/2024 End: 12-19-2024 Urinalysis complete panel - Urine URINALYSIS, WITH MICROSCOPIC Lab Routine 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) Once per month for 13 Occurrences starting 12/20/2023 until 12/19/2024 [facility] Work Phone: Comment on above: Once per month for 1 3 Occurrences starting 12/20/2023 until 12/19/2024 [facility] Immunizations Immunization Date Immunization Notes Care Provider [facility] 08-15-2023 influenza virus vacc ine, unspecified formulation Dorota Smith MD Work Phone: [facility] 08-18-2021 influenza, injectabl e, quadrivalent, preservative free Anthony Olivares MD Work Phone: [facility] Work Phone: 08-18-2021 influenza virus vacc ine, unspecified formulation Luz Daniel MD Work Phone: [facility] 08-14-2021 COVID-19 vaccine, ag e 12+ yr ([employer] - PURPLE TOP) Anthony Olivares MD Work Phone: [facility] Work Phone: 08-17-2019 influenza, injectabl e, quadrivalent, preservative free Anthony Olivares MD Work Phone: [facility] 08-02-2018 influenza, injectabl e, quadrivalent, preservative free Anthony Olivares MD Work Phone: [facility] 07-10-2018 pneumococcal conjuga te vaccine, 13 valent Anthony Olivares MD Work Phone: [facility] 08-14-2016 Influenza virus vaccine [facility] 08-14-2016 influenza, seasonal, injectable, preservative free Anthony Olivares MD Work Phone: [facility] Work Phone: 07-30-2016 influenza, injectabl e, quadrivalent, contains preservative Anthony Olivares MD Work Phone: [facility] 08-21-2015 influenza, injectabl e, quadrivalent, contains preservative Anthony Olivares MD Work Phone: [facility] 09-27-2014 influenza, seasonal, injectable Anthony Olivares MD Work Phone: [facility] 09-06-2013 influenza virus vacc ine, unspecified formulation Anthony Olivares MD Work Phone: [facility] 09-07-2012 influenza virus vacc ine, unspecified formulation Anthony Olivares MD Work Phone: [facility] Work Phone: 11-24-2010 influenza virus vacc ine, unspecified formulation Anthony Olivares MD Work Phone: [facility] Work Phone: 08-16-2009 influenza virus vacc ine, unspecified formulation Anthony Olivares MD Work Phone: [facility] 08-16-2009 pneumococcal polysaccharide vaccine, 23 valent Anthony Olivares MD Work Phone: [facility] 10-15-2000 influenza virus vacc ine, whole virus Anthony Olivares MD Work Phone: [facility] Work Phone: Payers Date Payer Category Payer Self-pay [id number] [phone] [id number] 2020 Medicaid [id number] 2020 Medicare [id number] 2020 Medicare UHC MEDICARE MYC ARE UHC MEDICARE [id number] 2020-Present [phone] [address] [place] [address] Medicare [id number] 2020 Medicare (Managed Care) [facility] MEDICARE [id number] 2020 Private Health Insurance [id number]. [id number] 2016 Medicaid [id number] 2002 Medicare [id number] 1965 Unknown [id number] [id number]. 651 1963 Unknown [id number] 2.16840.1.796571.3.579.2. 651 Unknown [id number] 2.840.1.548678.3.579.2. 462 Unknown [id number] 2.16840.1.611053.3.579.2. 462 Unknown [id number] 2.16840.1.114872.3.579.2. 462 Unknown [id number] 2.16840.1.489894.3.579.2. 462 Unknown [id number] 2.16.840.1.420412.3.579.2. 462 Unknown [id number] 2.16840.1.947597.3.579.2. 462 Unknown [id number] 2.16.840.1.973881.3.579.2. 462 Unknown [id number] 2.16.840.1.297957.3.579.2. 462 Unknown [id number] 2.16.840.1.128837.3.579.2. 462 Unknown [id number] 2.16.840.1.607785.3.579.2. 462 Unknown [id number] 2.16.840.1.519282.3.579.2. 462 Unknown [id number] 2.16.840.1.203874.3.579.2. 462 Unknown [id number] 2.16.840.1.004039.3.579.2. 462 Unknown [id number] 2.16.840.1.194324.3.579.2. 462 Unknown [id number]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 7:16 PM Advance Directive(s) 08/14/2019 9:32 AM Advance Directive(s) 07/23/2019 12:21 PM Advance Directive(s) 01/05/2019 9:49 AM Advance Directive(s) 06/12/2018 10:01 AM Advance Directive(s) 08/24/2016 10:32 PM Advance Directive(s) 08/11/2016 2:31 PM Advance Directive Response Recorded Date/ Time Advance Directives No July 12:38am Living Will No March 02, 2019 12:12pm Power of Instructor [employer] No March 02 12:12pm Advance Directive Response Recorded Date/ Time Advance Directives No July 12:38am Advance Directive Response Recorded Date/ Time Advance Directives No July 1:38am Hospital Course Note Hospitalist Discharge Summar y Reggie Chadderton : 1965 Admit date: 10/28/2020 Discharge date: [...] with shortness of breath and hypoxia from [facility]. He had a positive COVID19 test (more [...] 10/28/20 0000 -- -- -- Aminah León [phone] Admitting Physician: Farrukh Diaz MD PCP: No primary care provider on file. Discharging Nurse: [facility] Unit/Room#: 468/4681 Discharging Unit Phone Number: [phone] Emergency Contact: No emergency contact information on [...] Casillas RN 11/05/20 11/12/20 10/14/2020 Documentation in [place] Disease Reporting System of positive COVID - admitted 10/28/2020 symptomatic. Resolved COVID-19 Rule Out 10/28/20 10/28/20 10/28/20 Respiratory Panel, Molecular, with COVID-19 (Restricted: peds pts or suitable admitted adults) (Ordered) 10/29/20 Jaelyn Murphy RN Nurse Assessment: Last Vital Signs: [...] Assisted Dressing Assisted Toileting Independent Feeding Independent Coating Inspector Assisted Med Delivery whole Wound Care Documentation [...] Readmission: 20 Discharging to Facility/ Agency Name: [facility] Address: [address] [place] [address] Dialysis Facility (if applicable) Name: Address: Dialysis Schedule: Phone: Fax: Robotype Operator/Floor Covering Layer signature: at12:24 PM EST PHYSICIAN SECTION Prognosis: [...] PM EST Report given to Yesenia at [place]. * Amaris Ibrahim RCP - 11/04/2020 12:15 PM EST [facility] Respiratory Care Department Progress Note SpO2 [...] Daniel MD - 11/03/2020 6:05 PM EST [facility] Nephrology Progress Note Subjective/ 57 [...] Daily Farrukh Diaz MD 5 mg at 11/03/20852 melatonin tablet 3 mg 3 mg Oral [...] 600 mg at 11/02/202009 Data/ Recent Labs 11/02/2031611/03/20 0236 WBC 13.0* 15.6* HGB 13.2 12.8* HCT 39.5* 39.0* MCV 87.8 87.6 PLT 340 332 Recent Labs 11/01/205 11/02/207 11/03/20 0236 NA 137 137 134* K [...] in remission from renal perspective. No urgent ERGONOMICS CONSULTANT indications. Will follow. [facility] * Farrukh Diaz MD - 11/03/2020 1:09 PM EST Hospitalist Progress Note 11/03/2020 1:09 PM [phone]: Please page nd [phone] for patient care issues. [phone]: Please page [facility] night Hospitalist for any issues. Subjective: Admit [...] of Hospitalist Medicine Inpatient Medical Services PAGER: [phone] * Piyush Daniel MD - 11/02/2020 10:00 PM EST [facility] Progress Note Subjective/ 57 [...] Farrukh Diaz MD 20 mg at 11/02/20 08 cyclobenzaprine (FLEXERIL) tablet 10 mg 10 mg Oral TID PRN Farrukh Diaz MD 10 mg at 10/28/202049 famotidine (PEPCID) tablet 40 mg 40 mg Oral Daily Farrukh Diaz MD 40 mg at 11/02/20 08 hydroxychloroquine (PLAQUENIL) tablet 100 mg 100 mg Oral Daily Farrukh Diaz MD 100 mg at 11/02/20 0809 lithium capsule 300 mg 300 mg Oral [...] 600 mg at 11/02/202009 Data/ Recent Labs 10/31/2022011/02/20316 WBC 9.5 13.0* HGB 12.0* 13.2 HCT 35.7* 39.5* MCV 86.3 87.8 PLT 294 340 Recent Labs 10/31/2022011/01/2023411/02/20316 NA 136 137 137 K 3.8 4.2 [...] remission atleast from renal perspective. No urgent ERGONOMICS CONSULTANT indications. Will follow. [facility] * Farrukh Diaz MD - 11/02/2020 3:16 PM EST Hospitalist Progress Note 11/02/2020 3:16 PM [phone]: Please page nd [phone] for patient care issues. [phone]: Please page [facility] night Hospitalist for any issues. Subjective: Admit [...] 14.2 PLT 294 340 BMP: Recent Labs 10/31/2022011/01/2023411/02/20316 NA 136 137 137 K 3.8 4.2 [...] of Hospitalist Medicine Inpatient Medical Services PAGER: [phone] * Piyush Daniel MD - 11/01/2020 8:04 PM EST [facility] Progress Note Subjective/ 57 [...] Daily Farrukh Diaz MD 2,000 Units at 11/01/20 0828 [...] Daily Farrukh Diaz MD 100 mg at 11/01/20 0829 lithium capsule 300 mg 300 mg Oral Nightly Farrukh Diaz MD 300 mg at 10/31/202122 cetirizine (ZYRTEC) tablet 5 mg 5 mg Oral Daily Farrukh Diaz MD 5 mg at 11/01/20 0829 melatonin tablet 3 mg 3 mg Oral Nightly Farrukh Diaz MD 3 mg at 10/31/202122 metoprolol succinate (TOPROL XL) extended release tablet 50 mg 50 mg Oral Daily Farrukh Diaz MD 50 mg at 11/01/20 0830 omega-3 acid ethyl esters (LOVAZA) capsule 1 capsule 1 capsule Oral Daily Farrukh Diaz MD 1 capsule at 11/01/20 0828 pantoprazole (PROTONIX) tablet 40 mg 40 mg Oral QAM AC Farrukh Diaz MD 40 mg at 11/01/20 0830 paliperidone (INVEGA) extended release tablet 6 mg 6 mg Oral QAM Farrukh Diaz MD 6 mg at 11/01/20 0829 QUEtiapine (SEROQUEL XR) extended release tablet 600 [...] remission atleast from renal perspective. No urgent ERGONOMICS CONSULTANT indications. Will follow. [facility] * Farrukh Diaz MD - 11/01/2020 3:07 PM EST Hospitalist Progress Note 11/01/2020 3:08 PM [phone]: Please page nd [phone] for patient care issues. [phone]: Please page [facility] night Hospitalist for any issues. Subjective: Admit [...] of Hospitalist Medicine Inpatient Medical Services PAGER: [phone] * Mia Noyola SHEETMETAL TRADES WORKER - 11/01/2020 12:00 PM EST Patient Evaluation [...] = 5 Changing Therapy to prn * Farrkuh Diaz MD - 10/31/2020 11:32 AM EST Hospitalist Progress Note 11/01/2020 11:33 AM [phone]: Please page nd [phone] for patient care issues. [phone]: Please page [facility] Hospitalist for any issues. Subjective: Admit Date: [...] Oral Daily ipratropium-albuterol 1 ampule Inhalation Q4H MI sulfamethoxazole-trimethoprim 1 tablet Oral Once per day [...] 7 LIVER PROFILE: Recent Labs 10/30/20 0116 10/31/20 0221 11/01/20 0235 AST 67* 67* 135* ALT [...] of Hospitalist Medicine Inpatient Medical Services PAGER: [phone] * Bakari Hdz MD - 10/31/2020 9:35 AM EST [facility] Progress Note Subjective/ 57 [...] 109/64 131/80 Pulse: 58 67 85 Resp: 18 Temp: 96.3 F (35.7 C) 96.5 F [...] solution 1 ampule 1 ampule Inhalation Q4H MI Farrukh Diaz MD 1 ampule at 10/30/207 [...] from renal perspective. D/w IMS. No urgent ERGONOMICS CONSULTANT indications. Will follow. [facility] * Farrukh Diaz MD - 10/30/2020 3:50 PM EST Hospitalist Progress Note 10/30/2020 3:50 PM [phone]: Please page nd [phone] for patient care issues. [phone]: Please page [facility] night Hospitalist for any issues. Subjective: Admit [...] management decisions. This assay was developed by [employer] and distributed under an Emergency Use Authorization (EUA) granted by the FDA for the qualitative detection of SARS-CoV-2 nucleic acid. Provider and patient fact sheets can be found at https://www.fda. gov/media/266277/download and https://www.fda.gov/media/496931/download. Assessment / Plan 1. Acute hypoxic respiratory [...] of Hospitalist Medicine Inpatient Medical Services PAGER: [phone] * Bakari Hdz MD - 10/30/2020 10:18 AM EST [facility] Progress Note Subjective/ 57 [...] Farrukh Diaz MD 2,000 Units at 10/29/20 0824 remdesivir 100 mg in sodium chloride 0.9 % 250 mL IVPB 100 mg Intravenous Q24H Farrukh Diaz MD Stopped at 10/29/202008 0.9 % sodium chloride bolus 30 mL Intravenous PRN Farrukh Diaz MD atorvastatin (LIPITOR) tablet 20 mg 20 mg Oral Daily Farrukh Diaz MD 20 mg at 10/29/20825 cyclobenzaprine (FLEXERIL) tablet 10 mg 10 mg [...] Daily Farrukh Diaz MD 1 capsule at 10/29/20823 pantoprazole (PROTONIX) tablet 40 mg 40 mg [...] from renal perspective. D/w IMS. No urgent ERGONOMICS CONSULTANT indications. Will follow. [facility] * Jeanie Samuel - 10/30/2020 9:42 AM EST Nutrition rescreen completed. Patient assigned a level 1. * Farrukh Diaz MD - 10/29/2020 5:56 PM EST Hospitalist Progress Note 10/29/2020 5:56 PM [phone]: Please page nd [phone] for patient care issues. [phone]: Please page [facility] night Hospitalist for any issues. Subjective: Admit [...] 223 231 255 BMP: Recent Labs 10/28/20 1619 10/29/20 0534 10/29/20 1115 NA 133* 136 137 K 3.1* 4.3 3.9 CL 101 110* 112* CO2 22 17* 18* BUN 35* 31* 33* CREATININE 2.96* 2.37* 2.24* GLUCOSE 122* 139* 132* CALCIUM 8.6 8.5 8.9 ANIONGAP 9 9 7 LIVER PROFILE: Recent Labs 10/28/20 1619 10/29/20 0534 10/29/20 1115 AST 87* 86* 88* [...] management decisions. This assay was developed by [employer] and distributed under an Emergency Use Authorization (EUA) granted by the FDA for the qualitative detection of SARS-CoV-2 nucleic acid. Provider and patient fact sheets can be found at https://www.fda. gov/media/781949/download and https://www.fda.gov/media/713465/download. Assessment / Plan 1. Acute hypoxic respiratory [...] of Hospitalist Medicine Inpatient Medical Services PAGER: [phone] * Shirley Casillas RN - 10/29/2020 10:49 AM EST Documentation in [place] disease Reporting System: * Farrukh Diaz MD - 10/29/2020 9:58 AM EST Patient unable to get CTA chest due to DONNA - will hydrate and if able, will get it at a later time. * Irena Land RN - 10/29/2020 12:48 AM EST Patient moved into private bed [address] Mosley. Patients COVID test came back negative. Dr. Pro nursing machine setter supervisor made aware. documented in this encounter Assessments Diagnosis Pneumonia due to COVID-19 virus- Primary Hypoxia Hypoxemia Hypokalemia Hypopotassemia Stage 3 chronic kidney disease, unspecified whether stage 3a or 3b CKD Chief Complaint and Reason for Visit Chief Complaint RETIREMENT LAB WOR K RETIREMENT LABWORK RETIREMENT LABWORK RETIREMENT LABWORK RETIREMENT LAB WORK RETIREMENT LABWORK Chief Complaint RETIREMENT LABWORK RETIREMENT LABWORK RETIREMENT LAB WORK RETIREMENT LABWORK RETIREMENT LABWORK RETIREMENT LABWORK Chief Complaint RETIREMENT LABWORK RETIREMENT LAB WORK RETIREMENT LABWORK RETIREMENT LABWORK RETIREMENT LABWORK LABWORK RETIREMENT LABWORK Chief Complaint RETIREMENT LABWORK RETIREMENT LAB WORK RETIREMENT LABWORK RETIREMENT LABWORK RETIREMENT LABWORK LABWORK RETIREMENT LABWORK LABWORK Chief Complaint RETIREMENT LAB WOR K RETIREMENT LABWORK RETIREMENT LABWORK RETIREMENT LABWORK LABWORK RETIREMENT LABWORK LABWORK LABWORK Chief Complaint RETIREMENT LABWORK RETIREMENT LABWORK LABWORK RETIREMENT LABWORK LABWORK RETIREMENT LABWORK LABWORK RETIREMENT LAB WORK LABWORK Chief Complaint LABWORK RETIREMENT LABWORK LABWORK RETIREMENT LABWORK LABWORK RETIREMENT LAB WORK LABWORK LABWORK LABWORK Chief Complaint LABWORK RETIREMENT LABWORK LABWORK RETIREMENT LABWORK LABWORK RETIREMENT LAB WORK LABWORK LABWORK LABWORK RETIREMENT LABWORK Chief Complaint RETIREMENT LABWORK LABWORK RETIREMENT LABWORK LABWORK RETIREMENT LAB WORK LABWORK LABWORK LABWORK RETIREMENT LABWORK RETIREMENT LABWORK Chief Complaint LABWORK LABWORK LABWORK RETIREMENT LABWORK RETIREMENT LABWORK RETIREMENT LABWORK Chief Complaint LABWORK LABWORK LABWORK RETIREMENT LABWORK RETIREMENT LABWORK LABWORK RETIREMENT LABWORK Chief Complaint LABWORK LABWORK RETIREMENT LABWORK RETIREMENT LABWORK LABWORK RETIREMENT LABWORK RETIREMENT LAB WORK RETIREMENT LABWORK Chief Complaint LABWORK RETIREMENT LABWORK RETIREMENT LABWORK LABWORK RETIREMENT LABWORK RETIREMENT LAB WORK RETIREMENT LABWORK RETIREMENT LABWORK Chief Complaint LABWORK RETIREMENT LABWORK RETIREMENT LAB WORK RETIREMENT LABWORK RETIREMENT LABWORK LABWORK RETIREMENT LAB WORK LABWORK Chief Complaint RETIREMENT LABWORK RETIREMENT LAB WORK RETIREMENT LABWORK RETIREMENT LABWORK LABWORK RETIREMENT LAB WORK LABWORK LABWORK Chief Complaint RETIREMENT LABWORK RETIREMENT LAB WORK RETIREMENT LABWORK RETIREMENT LABWORK LABWORK RETIREMENT LAB WORK LABWORK LABWORK RETIREMENT LAB WORK Chief Complaint RETIREMENT LABWORK LABWORK RETIREMENT LAB WORK LABWORK LABWORK RETIREMENT LAB WORK RETIREMENT LABWORK Chief Complaint LABWORK RETIREMENT LAB WORK LABWORK LABWORK RETIREMENT LAB WORK RETIREMENT LABWORK LABWORK RETIREMENT LABWORK Chief Complaint RETIREMENT LAB WOR K LABWORK LABWORK RETIREMENT LAB WORK RETIREMENT LABWORK LABWORK RETIREMENT LABWORK LABWORK Chief Complaint RETIREMENT LAB WOR K LABWORK LABWORK RETIREMENT LAB WORK RETIREMENT LABWORK LABWORK RETIREMENT LABWORK LABWORK RETIREMENT LAB WORK Chief Complaint LABWORK LABWORK RETIREMENT LAB WORK RETIREMENT LABWORK LABWORK RETIREMENT LABWORK LABWORK LABWORK RETIREMENT LAB WORK RETIREMENT LABWORK Chief Complaint LABWORK RETIREMENT LAB WORK RETIREMENT LABWORK LABWORK RETIREMENT LABWORK LABWORK LABWORK RETIREMENT LAB WORK RETIREMENT LABWORK LABWORK Chief Complaint RETIREMENT LAB WOR K RETIREMENT LABWORK LABWORK RETIREMENT LABWORK LABWORK LABWORK RETIREMENT LAB WORK RETIREMENT LABWORK LABWORK LABWORK Chief Complaint LABWORK LABWORK RETIREMENT LABWORK RETIREMENT LABWORK LABWORK LABWORK RETIREMENT LAB WORK RETIREMENT LABWORK Chief Complaint RETIREMENT LABWORK RETIREMENT LABWORK LABWORK LABWORK RETIREMENT LAB WORK RETIREMENT LABWORK RETIREMENT LAB WORK LABWORK Chief Complaint LABWORK LABWORK RETIREMENT LAB WORK RETIREMENT LABWORK RETIREMENT LAB WORK LABWORK LABWORK Chief Complaint RETIREMENT LAB WOR K RETIREMENT LABWORK RETIREMENT LAB WORK LABWORK LABWORK RETIREMENT LABWORK RETIREMENT LABWORK Chief Complaint LABWORK LABWORK RETIREMENT LABWORK RETIREMENT LABWORK LABWORK Chief Complaint LABWORK LABWORK RETIREMENT LABWORK RETIREMENT LABWORK LABWORK RETIREMENT LAB WORK Chief Complaint LABWORK LABWORK RETIREMENT LABWORK RETIREMENT LABWORK LABWORK RETIREMENT LAB WORK LABWORK Chief Complaint RETIREMENT LABWORK RETIREMENT LABWORK LABWORK RETIREMENT LAB WORK LABWORK RETIREMENT LABWORK Chief Complaint RETIREMENT LABWORK RETIREMENT LABWORK LABWORK RETIREMENT LAB WORK LABWORK RETIREMENT LABWORK RETIREMENT LAB WORK Chief Complaint LABWORK RETIREMENT LAB WORK LABWORK RETIREMENT LABWORK RETIREMENT LAB WORK RETIREMENT LAB WORK LABWORK Chief Complaint RETIREMENT LAB WOR K LABWORK RETIREMENT LABWORK RETIREMENT LAB WORK RETIREMENT LAB WORK LABWORK LABWORK Chief Complaint RETIREMENT LABWORK RETIREMENT LAB WORK RETIREMENT LAB WORK LABWORK LABWORK LABWORK Chief Complaint Admit Date RETIREMENT LAB WORK September 27 5:00am RETIREMENT LAB WORK November 15, 2024 5:00am RETIREMENT LAB WORK November 27, 2024 5:00am RETIREMENT LAB WORK December 28 5:00am RETIREMENT LAB WORK January 02 5:00am RETIREMENT LAB WORK January 03 6:10am Chief Complaint Admit Date RETIREMENT LAB WORK November 15, 2024 5:00am RETIREMENT LAB WORK November 27, 2024 5:00am RETIREMENT LAB WORK December 28 5:00am RETIREMENT LAB WORK January 02 5:00am RETIREMENT LAB WORK January 03 6:10am RETIREMENT LAB WORK January 25, 2025 5 :00am Chief Complaint Admit Date RETIREMENT LAB WORK November 15, 2024 5:00am RETIREMENT LAB WORK November 27, 2024 5:00am RETIREMENT LAB WORK December 28 5:00am RETIREMENT LAB WORK January 02 5:00am RETIREMENT LAB WORK January 03 6:10am RETIREMENT LAB WORK January 25, 2025 5 :00am RETIREMENT LAB WORK January 30, 2025 5 :00am Chief Complaint Admit Date RETIREMENT LAB WORK November 15, 2024 5:00am RETIREMENT LAB WORK November 27, 2024 5:00am RETIREMENT LAB WORK December 28 5:00am RETIREMENT LAB WORK January 02 5:00am RETIREMENT LAB WORK January 03 6:10am RETIREMENT LAB WORK January 25, 2025 5 :00am RETIREMENT LAB WORK January 30, 2025 5 :00am LABWORKJ February 06, 2025 5:0 0am LABWORK February 11, 2025 5:0 0am Chief Complaint Admit Date RETIREMENT LAB WORK November 27, 2024 5:00am RETIREMENT LAB WORK December 28 5:00am RETIREMENT LAB WORK January 02 5:00am RETIREMENT LAB WORK January 03 6:10am RETIREMENT LAB WORK January 25, 2025 5 :00am RETIREMENT LAB WORK January 30, 2025 5 :00am LABWORKJ February 06, 2025 5:0 0am LABWORK February 11, 2025 5:0 0am LABWORK February 27, 2025 5:0 0am Chief Complaint Admit Date RETIREMENT LAB WORK November 27, 2024 5:00am RETIREMENT LAB WORK December 28 5:00am RETIREMENT LAB WORK January 02 5:00am RETIREMENT LAB WORK January 03 6:10am RETIREMENT LAB WORK January 25, 2025 5 :00am RETIREMENT LAB WORK January 30, 2025 5 :00am LABWORKJ February 06, 2025 5:0 0am LABWORK February 11, 2025 5:0 0am RETIREMENT LAB WORK February 25, 2025 5 :00am LABWORK February 27, 2025 5:0 0am Chief Complaint Admit RETIREMENT LAB WORK December 28 5:00am RETIREMENT LAB WORK January 02 5:00am RETIREMENT LAB WORK January 03 6:10am RETIREMENT LAB WORK January 25, 2025 5 :00am RETIREMENT LAB WORK January 30, 2025 5 :00am LABWORKJ February 06, 2025 5:0 0am LABWORK February 11, 2025 5:0 0am RETIREMENT LAB WORK February 25, 2025 5 :00am LABWORK February 27, 2025 5:0 0am RETIREMENT LAB WORK March 04, 2025 1 0:30pm [...] Referral Specialty Diagnoses / Procedures Referred By Contac t Referred To Contact Dermatology Diagnoses Rash and nonspecific skin eruption Procedures CONSULT TO DERMATOLOGY OFFICE/[facility] 60 MINUTES Dorota Smith MD [address] [facility] [address] [place] [address] Referral ID Status Reason Start Date Expiration Date Visits Requested Visits Authorized [id number] Authorized PCP Requested Referral 09/14/2024 09/14/2025 1 1 Additional Source Comments INFORMATION SOURCE (unrecogn ized section and content) DATE CREATED AUTHOR 06/07/2018 [facility] DATE CREATED AUTHOR AUTHOR'S ORGANIZ ATION 04/02/2019 [facility] DATE CREATED AUTHOR AUTHOR'S ORGANIZ ATION 03/30/2020 [facility] DATE CREATED AUTHOR AUTHOR'S ORGANIZ ATION 08/05/2020 [facility] DATE CREATED AUTHOR AUTHOR'S ORGANIZ ATION 11/21/2020 [facility] DATE CREATED AUTHOR AUTHOR'S ORGANIZ ATION 09/18/2024 [facility] DATE CREATED AUTHOR AUTHOR'S ORGANIZ ATION 11/28/2024 [facility] DATE CREATED AUTHOR AUTHOR'S ORGANIZ ATION 02/27/2025 [facility] DATE CREATED AUTHOR AUTHOR'S ORGANIZ ATION 04/18/2025 [facility] (unrecognized sect ion and content) No Status Records FoundNo Status Records FoundNo Status Records FoundNo Status Records FoundNo Status Records FoundNo Status Records Found Reason for Visit (unrecogniz ed section and content) Reason Comments Infusion Rituximab Specialty Diagnoses / Procedures Referred By Contac t Referred To Contact Hypertension and Nephrology / Kidney Medicine Diagnoses Rheumatoid arthritis without rheumatoid factor, right hand Rheumatoid arthritis without rheumatoid factor, left hand Rituximab 1,000mg per Staff Message Procedures INJ RUXIENCE, 10 MG IV RITUXIMAB Anthony Olivares MD [address] [place] [address] 1, Kidney Med Main Infusion Chair [address] [place] [address] Referral ID Status Reason Start Date Expiration Date V isits Requested Visits Authorized [id number] Authorized 03/31/2022 11/13/2022 99 99 Reason Comments Shortness of Breath Reason Comments Follow Up Reason Comments Infusion iv rituximab Reason Comments Radio Main J1 Specialty Diagnoses / Procedures Referred By Contac t Referred To Contact XR IMAGING Diagnoses Chronic pain of right knee Procedures XR KNEE LIMITED 2V AP/LAT RIGHT RADIOLOGIC EXAMINATION KNEE 1/2 VIEWS Luz Daniel MD [address] [facility] [address] [place] [address] Xr Imaging Referral ID Status Reason Start Date Expiration Date V isits Requested Visits Authorized [id number] Closed Auto-Generate d Referral 02/26/2022 03/28/2023 1 1 Reason Comments Rheumatoid Arthritis Reason Comments Follow Up RA- hands, stiff and swollen Reason Comments NO SHOW Reason Comments Patient Update Reason Comments Appointment Specialty Diagnoses / Procedures Referred By Contac t Referred To Contact Diagnoses 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) Procedures INJ RUXIENCE, 10 MG Anthony Olivares MD [address] [place] [address] [facility] [address] [place] [address] Referral ID Status Reason Start Date Expiration Date V isits Requested Visits Authorized [id number] Authorized 12/27/2023 12/29/2024 24 24 Reason Comments [...] or prosecute any alcohol or drug abuse patient.[facility] the event this information is protected by the Federal Confidentiality of Alcohol and Drug Abuse Patient Records regulations: The Federal rules restrict any use of the information to criminally investigate or prosecute any alcohol or drug abuse patient.[facility] System[facility] the event this information is protected by the Federal Confidentiality of Alcohol and Drug Abuse Patient Records regulations: The Federal rules restrict any use of the information to criminally investigate or prosecute any alcohol or drug abuse patient.[facility] System[facility] the event this information is protected by the Federal Confidentiality of Alcohol and Drug Abuse Patient Records regulations: The Federal rules restrict any use of the information to criminally investigate or prosecute any alcohol or drug abuse patient.[facility] System[facility] the event this information is protected by the Federal Confidentiality of Alcohol and Drug Abuse Patient Records regulations: The Federal rules restrict any use of the information to criminally investigate or prosecute any alcohol or drug abuse patient.[facility] SystemIn the event this information is protected by the Federal Confidentiality of Alcohol and Drug Abuse Patient Records regulations: The Federal rules restrict any use of the information to criminally investigate or prosecute any alcohol or drug abuse patient.[facility] System[facility] the event this information is protected by the Federal Confidentiality of Alcohol and Drug Abuse Patient Records regulations: The Federal rules restrict any use of the information to criminally investigate or prosecute any alcohol or drug abuse patient.[facility] System[facility] the event this information is protected by the Federal Confidentiality of Alcohol and Drug Abuse Patient Records regulations: The Federal rules restrict any use of the information to criminally investigate or prosecute any alcohol or drug abuse patient.[facility] SystemIn the event this information is protected by the Federal Confidentiality of Alcohol and Drug Abuse Patient Records regulations: The Federal rules restrict any use of the information to criminally investigate or prosecute any alcohol or drug abuse patient.[facility] SystemIn the event this information is protected by the Federal Confidentiality of Alcohol and Drug Abuse Patient Records regulations: The Federal rules restrict any use of the information to criminally investigate or prosecute any alcohol or drug abuse patient.[facility] SystemIn the event this information is protected by the Federal Confidentiality of Alcohol and Drug Abuse Patient Records regulations: The Federal rules restrict any use of the information to criminally investigate or prosecute any alcohol or drug abuse patient.[facility] SystemIn the event this information is protected by the Federal Confidentiality of Alcohol and Drug Abuse Patient Records regulations: The Federal rules restrict any use of the information to criminally investigate or prosecute any alcohol or drug abuse patient.[facility] SystemIn the event this information is protected by the Federal Confidentiality of Alcohol and Drug Abuse Patient Records regulations: The Federal rules restrict any use of the information to criminally investigate or prosecute any alcohol or drug abuse patient.[facility] SystemIn the event this information is protected by the Federal Confidentiality of Alcohol and Drug Abuse Patient Records regulations: The Federal rules restrict any use of the information to criminally investigate or prosecute any alcohol or drug abuse patient.[facility] SystemIn the event this information is protected by the Federal Confidentiality of Alcohol and Drug Abuse Patient Records regulations: The Federal rules restrict any use of the information to criminally investigate or prosecute any alcohol or drug abuse patient.[facility] SystemIn the event this information is protected by the Federal Confidentiality of Alcohol and Drug Abuse Patient Records regulations: The Federal rules restrict any use of the information to criminally investigate or prosecute any alcohol or drug abuse patient.[facility] SystemIn the event this information is protected by the Federal Confidentiality of Alcohol and Drug Abuse Patient Records regulations: The Federal rules restrict any use of the information to criminally investigate or prosecute any alcohol or drug abuse patient.[facility] SystemIn the event this information is protected by the Federal Confidentiality of Alcohol and Drug Abuse Patient Records regulations: The Federal rules restrict any use of the information to criminally investigate or prosecute any alcohol or drug abuse patient.[facility] SystemIn the event this information is protected by the Federal Confidentiality of Alcohol and Drug Abuse Patient Records regulations: The Federal rules restrict any use of the information to criminally investigate or prosecute any alcohol or drug abuse patient.[facility] SystemIn the event this information is protected by the Federal Confidentiality of Alcohol and Drug Abuse Patient Records regulations: The Federal rules restrict any use of the information to criminally investigate or prosecute any alcohol or drug abuse patient.[facility] SystemIn the event this information is protected by the Federal Confidentiality of Alcohol and Drug Abuse Patient Records regulations: The Federal rules restrict any use of the information to criminally investigate or prosecute any alcohol or drug abuse patient.[facility] SystemIn the event this information is protected by the Federal Confidentiality of Alcohol and Drug Abuse Patient Records regulations: The Federal rules restrict any use of the information to criminally investigate or prosecute any alcohol or drug abuse patient.[facility] SystemIn the event this information is protected by the Federal Confidentiality of Alcohol and Drug Abuse Patient Records regulations: The Federal rules restrict any use of the information to criminally investigate or prosecute any alcohol or drug abuse patient.[facility] SystemIn the event this information is protected by the Federal Confidentiality of Alcohol and Drug Abuse Patient Records regulations: The Federal rules restrict any use of the information to criminally investigate or prosecute any alcohol or drug abuse patient.[facility] SystemIn the event this information is protected by the Federal Confidentiality of Alcohol and Drug Abuse Patient Records regulations: The Federal rules restrict any use of the information to criminally investigate or prosecute any alcohol or drug abuse patient.[facility] SystemIn the event this information is protected by the Federal Confidentiality of Alcohol and Drug Abuse Patient Records regulations: The Federal rules restrict any use of the information to criminally investigate or prosecute any alcohol or drug abuse patient.[facility] SystemIn the event this information is protected by the Federal Confidentiality of Alcohol and Drug Abuse Patient Records regulations: The Federal rules restrict any use of the information to criminally investigate or prosecute any alcohol or drug abuse patient.[facility] SystemIn the event this information is protected by the Federal Confidentiality of Alcohol and Drug Abuse Patient Records regulations: The Federal rules restrict any use of the information to criminally investigate or prosecute any alcohol or drug abuse patient.[facility] SystemIn the event this information is protected by the Federal Confidentiality of Alcohol and Drug Abuse Patient Records regulations: The Federal rules restrict any use of the information to criminally investigate or prosecute any alcohol or drug abuse patient.[facility] SystemIn the event this information is protected by the Federal Confidentiality of Alcohol and Drug Abuse Patient Records regulations: The Federal rules restrict any use of the information to criminally investigate or prosecute any alcohol or drug abuse patient.[facility] SystemIn the event this information is protected by the Federal Confidentiality of Alcohol and Drug Abuse Patient Records regulations: The Federal rules restrict any use of the information to criminally investigate or prosecute any alcohol or drug abuse patient.[facility] SystemIn the event this information is protected by the Federal Confidentiality of Alcohol and Drug Abuse Patient Records regulations: The Federal rules restrict any use of the information to criminally investigate or prosecute any alcohol or drug abuse patient.[facility] Care Teams (unrecognized sec tion and content) Photographic Enlarger Operator Relationship Specialty Start Date End Date Elgin Bal MD [address] [place] [address] PCP - General Family Practice 12/25/12 Anthony Olivares MD [address] [place] [address] Automobile Body Customizer Nephrology 03/19/21 Anthony Olivares MD [address] [place] [address] Primary Staff Physician Nephrology 12/10/21 Photographic Enlarger Operator Relationship Specialty Start Date End Date Elgin Bal MD [facility] [place] [address] PCP - General [facility] Practice 12/25/12 Anthony Olivares MD [address] [place] [address] Automobile Body Customizer Nephrology 03/19/21 Anthony Olivares MD [address] [place] [address] Primary Staff Physician Nephrology 12/10/21 Photographic Enlarger Operator Relationship Specialty Start Date End Date Elgin Bal MD [address] [place] [address] PCP - General Family Practice 12/25/12 Anthony Olivares MD [address] [place] [address] Automobile Body Customizer Nephrology 03/19/21 Anthony Olivares MD [address] [place] [address] Primary Staff Physician Nephrology 12/10/21 Photographic Enlarger Operator Relationship Specialty Start Date End Date Elgin Bal MD [address] [facility] [place] [address] PCP - General Family Practice 12/25/12 Anthony Olivares MD [address] [place] [address] Automobile Body Customizer Nephrology 03/19/21 Anthony Olivares MD [address] [place] [address] Primary Staff Physician Nephrology 12/10/21 Photographic Enlarger Operator Relationship Specialty Start Date End Date Elgin Bal MD [address] [place] [address] PCP - General Family Practice 12/25/12 Anthony Olivares MD [address] [place] [address] Automobile Body Customizer Nephrology 03/19/21 Anthony Olivares MD [address] [place] [address] Primary Staff Physician Nephrology 12/10/21 Photographic Enlarger Operator Relationship Specialty Start Date End Date Elgin Bal MD [address] [place] [address] PCP - General Family Practice 12/25/12 Anthony Olivares MD [address] [place] [address] Automobile Body Customizer Nephrology 03/19/21 Anthony Olivares MD [address] [place] [address] Primary Staff Physician Nephrology 12/10/21 Photographic Enlarger Operator Relationship Specialty Start Date End Date Elgin Bal MD [address] [place] [address] PCP - General Family Medicine 12/25/12 Anthony Olivares MD [address] [place] [address] Automobile Body Customizer Nephrology 03/19/21 Anthony Olivares MD [address] [place] [address] Primary Staff Physician Nephrology 12/10/21 Photographic Enlarger Operator Relationship Specialty Start Date End Date Elgin Bal MD [address] [place] [address] PCP - General Family Medicine 12/25/12 Anthony Olivares MD [address] [place] [address] Automobile Body Customizer Nephrology 03/19/21 Anthony Olivares MD [address] [place] [address] Primary Staff Physician Nephrology 12/10/21 Photographic Enlarger Operator Relationship Specialty Start Date End Date Elgin Bal MD [address] [place] [address] PCP - General Family Medicine 12/25/12 Anthony Olivares MD [address] [place] [address] Automobile Body Customizer Nephrology 03/19/21 Anthony Olivares MD [address] [place] [address] Primary Staff Physician Nephrology 12/10/21 Photographic Enlarger Operator Relationship Specialty Start Date End Date Elgin Bal MD [address] [place] [address] PCP - General Family Medicine 12/25/12 Anthony Olivares MD [address] [place] [address] Automobile Body Customizer Nephrology 03/19/21 Anthony Olivares MD [address] [place] [address] Primary Staff Physician Nephrology 12/10/21 Team Status: [...] Status: Inactive Member Role Status Dates Dr. Eglin Bal MD Primary Care Provider Active Adam CHANDLER Attending Provider, Referring Prov ider Active Photographic Enlarger Operator Relationship Specialty Start Date End Date Elgin Bal MD [address] [place] [address] PCP - General Family Medicine 12/25/12 Anthony Olivares MD [address] [place] [address] Automobile Body Customizer Nephrology 03/19/21 Anthony Olivares MD [address] [place] [address] Primary Staff Physician Nephrology 12/10/21 Team Status: Inactive Member Role Status Dates Dr. Elgin Bal MD Primary Care Provider Active Dr. Alfredo Phipps MD Attending Provider Active Team Status: Active Member Role Status Dates Dr. Elgin Bal MD Primary Care Provider Active Adam CHANDLER Attending Provider, Ref[facility] ider Active Photographic Enlarger Operator Relationship Specialty Start Date End Date Elgin Bal MD [address] [place] [address] PCP - General Family Medicine 12/25/12 Anthony Olivares MD [address] [facility] [place] [address] Automobile Body Customizer Nephrology 03/19/21 Anthony Olivares MD [address] [place] [address] Primary Staff Physician Nephrology 12/10/21 Photographic Enlarger Operator Relationship Specialty Start Date End Date Elgin Bal MD [address] [place] [address] PCP - General Family Medicine 12/25/12 Anthony Olivares MD [address] [place], [place] [address] Automobile Body Customizer Nephrology 03/19/21 Anthony Olivares MD [address] [place], [place] [address] Primary Staff Physician Nephrology 12/10/21 Photographic Enlarger Operator Relationship Specialty Start Date End Date Alfredo Phipps MD [address] [facility] [address] [place] [address] PCP - General Internal Medicine 10/19/23 Anthony Olivares MD [address] [place] [address] Automobile Body Customizer Nephrology 03/19/21 Anthony Olivares MD [address] [place] [address] Primary Staff Physician Nephrology 12/10/21 Photographic Enlarger Operator Relationship Specialty Start Date End Date Alfredo Phipps MD [address] [facility] [address] [place] [address] PCP - General Internal Medicine 10/19/23 Anthony Olivares MD [address] [place] [address] Automobile Body Customizer Nephrology 03/19/21 Anthony Olivares MD [address] [place] [address] Primary Staff Physician Nephrology 12/10/21 Photographic Enlarger Operator Relationship Specialty Start Date End Date Alfredo Phipps MD [address] [facility] [address] [place] [address] PCP - General Internal Medicine 10/19/23 Anthony Olivares MD [address] [place] [address] Automobile Body Customizer Nephrology 03/19/21 Anthony Olivares MD [address] [place] [address] Primary Staff Physician Nephrology 12/10/21 Photographic Enlarger Operator Relationship Specialty Start Date End Date Alfredo Phipps MD [address] [facility] [address] [place] [address] PCP - General Internal Medicine 10/19/23 Anthony Olivares MD [address] [place] [address] Automobile Body Customizer Nephrology 03/19/21 Anthony Olivares MD [address] [place] [address] Primary Staff Physician Nephrology 12/10/21 Photographic Enlarger Operator Relationship Specialty Start Date End Date Alfredo Phipps MD [address] [facility] [address] [place] [address] PCP - General Internal Medicine 10/19/23 Anthony Olivares MD [address] [place] [address] Automobile Body Customizer Nephrology 03/19/21 Anthony Olivares MD [address] [place] [address] Primary Staff Physician Nephrology 12/10/21 Photographic Enlarger Operator Relationship Specialty Start Date End Date Alfredo Phipps MD [address] [facility] [address] [place] [address] PCP - General Internal Medicine 10/19/23 Anthony Olivares MD [address] [place] [address] Automobile Body Customizer Nephrology 03/19/21 Anthony Olivares MD [address] [facility] [place] [address] Primary Staff Physician Nephrology 12/10/21 Photographic Enlarger Operator Relationship Specialty Start Date End Date Alfredo Phipps MD [address] [place] [address] [place] [address] PCP - General Internal Medicine 10/19/23 Anthony Olivares MD [address] [place] [address] Automobile Body Customizer Nephrology 03/19/21 Anthony Olivares MD [address] [place] [address] Primary Staff Physician Nephrology 12/10/21 Photographic Enlarger Operator Relationship Specialty Start Date End Date Alfredo Phipps MD [address] [facility] [address] [place] [address] PCP - General Internal Medicine 10/19/23 Anthony Olivares MD [address] [facility] [place] [address] Automobile Body Customizer Nephrology 03/19/21 Anthony Olivares MD [address] [place] [address] Primary Staff Physician Nephrology 12/10/21 Photographic Enlarger Operator Relationship Specialty Start Date End Date Alfredo Phipps MD [address] [facility] [address] [place] [address] PCP - General Internal Medicine 10/19/23 Anthony Olivares MD [address] [place] [address] Automobile Body Customizer Nephrology 03/19/21 Anthony Olivares MD [address] [place] [address] Primary Staff Physician Nephrology 12/10/21 Photographic Enlarger Operator Relationship Specialty Start Date End Date Alfredo Phipps MD [address] [facility] [address] [place] [address] PCP - General Internal Medicine 10/19/23 Anthony Olivares MD [address] [place] [address] Automobile Body Customizer Nephrology 03/19/21 Anthony Olivares MD [address] [place] [address] Primary Staff Physician Nephrology 12/10/21 Photographic Enlarger Operator Relationship Specialty Start Date End Date Alfredo Phipps MD [address] [facility] [address] [place] [address] PCP - General Internal Medicine 10/19/23 Anthony Olivares MD [address] [place] [address] Automobile Body Customizer Nephrology 03/19/21 Anthony Olivares MD [address] [place] [address] Primary Staff Physician Nephrology 12/10/21 Photographic Enlarger Operator Relationship Specialty Start Date End Date Alfredo Phipps MD [address] [facility] [address] [place] [address] PCP - General Internal Medicine 10/19/23 Anthony Olivares MD [address] [place] [address] Automobile Body Customizer Nephrology 03/19/21 Anthony Olivares MD [address] [place] [address] Primary Staff Physician Nephrology 12/10/21 Photographic Enlarger Operator Relationship Specialty Start Date End Date Alfredo Phipps MD [address] [facility] [address] [place] [address] PCP - General Internal Medicine 10/19/23 Anthony Olivares MD [address] [place] [address] Automobile Body Customizer Nephrology 03/19/21 Anthony Olivares MD [address] [place] [address] Primary Staff Physician Nephrology 12/10/21 Photographic Enlarger Operator Relationship Specialty Start Date End Date Alfredo Phipps MD [address] [facility] [address] [place] [address] PCP - General Internal Medicine 10/19/23 Anthony Olivares MD [address] [place] [address] Automobile Body Customizer Nephrology 03/19/21 Anthony Olivares MD [address] [place] [address] Primary Staff Physician Nephrology 12/10/21 Team Status: [...] January 30, 2025 End: January 30, 2025 Photographic Enlarger Operator Relationship Specialty Start Date End Date Alfredo Phipps MD [address] [facility] [address] [place] [address] PCP - General Internal Medicine 10/19/23 Anthony Olivares MD [address] [place] [address] Automobile Body Customizer Nephrology 03/19/21 Anthony Olivares MD [address] [place] [address] Primary Staff Physician Nephrology 12/10/21 [...] BE BASED ON THE PRIMARY CLINICAL RECORDS. [facility] [employer] [facility]. provides no warranty or guarantee of the accuracy or completeness of information in this document.
[2025-04-26 13:41] LABS: Uric Acid 6.3 mg/dL (3.5-7.2)
== END ==
LOC: OLS.SANC 05:00
PROVIDERS: PCP Family Medicine; Visit Provider Internal Medicine
DX: M1A.00X0 Idiopathic chronic gout, unspecified site, without tophus (tophi) (principal)
CPT/HCPCS: 36415; 84550

== ENCOUNTER → 2025-05-02 | Outpatient (REF) | payer MEDICARE, MEDICAID, SELFPAY ==
[2025-05-02 08:49] LABS: Lithium 0.53 mmol/L (0.60-1.20)
== END ==
LOC: OLS.SANC 05:00
PROVIDERS: PCP Family Medicine; Visit Provider Family Medicine
DX: F25.0 Schizoaffective disorder, bipolar type (principal); Z79.899 Other long term (current) drug therapy
CPT/HCPCS: 36415; 80178

== ENCOUNTER → 2025-05-24 05:00 | Outpatient (REF) | payer MEDICARE, MEDICAID, SELFPAY ==
--- OUTSIDE RECORDS SUMMARY | 2025-05-24 04:40 | XMS RPT_ITS | CCD ---
Author Organization [facility] Care Team Providers Care Machine Crater Name Role Phone HODA BERNABE MD Admitting Unavailable HODA BERNABE MD Attending Unavailable HODA BERNABE MD Primary Care Unavailable NO, DOCTOR ON Consulting Unavailable HODA BERNABE MD Admitting Unavailable HODA BERNABE MD Attending Unavailable HODA BERNABE MD Primary Care Unavailable NO, DOCTOR ON Consulting Unavailable Unavailable Primary Care Provider UnavailElgin Duran MD Primary Care Provider Anthony Olivares MD [...] Care Provider ALFREDO PHIPPS Primary Care Unavaila ble SARAH DOROTA Referring Unavailable CELESTINA SMITHARIKA Attending Unavailable ANTHONY OLIVARES Attending Unavailable SELF Referring Unavailable ALFREDO PHIPPS Primary Care Unavaila RONNY Jaramillo Attending UnavailANTHONY Healy Referring Unavailable ALFREDO PHIPPS Primary Care Unavaila ANTHONY Shell Referring Unavailable KATSAROS, ALFREDO [facility] Primary Care Unavaila ANTHONY Shell Attending Unavailable KATSAROS, ALFREDO [facility] ST[facility]LYLeonie Primary Care Unavailterra Bal MD, Dr. Eisenberg Primary Care Provider Adam Marley Attending Provider Aurelia Bal MD, Dr. Eisenberg Primary Care Provider Adam Marley Attending Provider Unavaila catracho Katangi CHANDLER, Alfredo Attending Provider Unavailab le ANTHONY OLIVARES Referring Unavailable KATSAROS, ALFREDO [facility]LYLeonie Primary Care Unavaila ANTHONY Shell Referring Unavailable KATSAROS, ALFREDO SPICER Primary Care Unavaila ANTHONY Shell Referring Unavailable KATSAROS, ALFREDO SPICER Primary Care Unavailterra Bal MD, Dr. Eisenberg Primary Care Provider Adam Marley Attending Provider Aurelia Bal MD, Dr. Eisenberg Primary Care Provider Adam Marley Attending Provider Unavailterra Bal MD, Dr. Eisenberg Primary Care Provider [phone] Adam Marley Attending Provider Unavaila Adam Manzano Attending Unavailable [place], [facility] Primary Care Unavailable [place], [facility] Primary Care Unavailable Gunning RAMESH, Adam Attending Unavailable Gunning RAMESH, Adam Attending Unavailable Mally, [facility] Primary Care Unavailable Gunning RAMESH, Adam Referring Unavailable Gunning RAMESH, Adam Attending Unavailable Mally, [facility] Primary Care Unavailable Gunning RAMESH, Adam Referring Unavailable Gunning OLS, Adam Attending Unavailable Mally, [facility] Primary Care Unavailable Gunning OLS, Adam Attending Unavailable Mally, [facility] Primary Care Unavailable Gunning OLS, Adam Attending Unavailable Mally, [facility] Primary Care Unavailable Gunning OLS, Adam Attending Unavailable Mally, [facility] Primary Care Unavailable Gunning OLS, Adam Attending Unavailable Mally, [facility] Primary Care Unavailable Gunning OLS, Adma Attending Unavailable [place], [facility] Primary Care Unavailable Katsaros OLS, Alfredo Attending Unavailable [place], [facility] Primary Care Unavailable [place], [facility] Primary Care Unavailable Katsaros OLS, Alfredo Attending Unavailable [place], [facility] Primary Care Unavailable Katsaros RAMESH, Alfredo Attending Unavailable Gunning RAMESH, Adam Attending Unavailable [place], [facility] Primary Care Unavailable [place], [facility] Primary Care Unavailable Katsaros RAMESH, Alfredo Attending Unavailable Gunning RAMESH, Adam Attending Unavailable [place], [facility] Primary Care Unavailable Gunning OLS, Adam Attending Unavailable [place], [facility] Primary Care Unavailable Katsaros OLS, Alfredo Attending Unavailable [place], [facility] Primary Care Unavailable Gunning OLS, Adam Attending Unavailable [place], [facility] Primary Care Unavailable Gunning OLS, Adam Attending Unavailable [place], [facility] Primary Care Unavailable [place], [facility] Primary Care Unavailable Gunning OLS, Adam Attending Unavailable [place], [facility] Primary Care Unavailable Gunning OLS, Adam Attending Unavailable Katsaros OLS, Peter Attending Unavailable [place], [facility] Primary Care Unavailable Gunning OLS, Adam Attending Unavailable [place], [facility] Primary Care Unavailable [place], [facility] Primary Care Unavailable Gunning OLS, Adam Attending Unavailable [place], [facility] Primary Care Unavailable Gunning OLS, Adam Attending Unavailable Gunning OLS, Adam Attending Unavailable [place], [facility] Primary Care Unavailable Katsaros OLS, Peter Attending Unavailable [place], [facility] Primary Care Unavailable [place], [facility] Primary Care Unavailable Gunning OLS, Adam Attending Unavailable Allergies Allergy Classification Reported Allergen(s) Allergy Type Date of Onset Reaction(s) Facility Anti-Epileptic Agents (1 source) lamoTRIgine Drug Allergy 8 [facility] Work Phone: Bee pollen (1 source) Bee pollen Drug Allergy 0 Other: See Comments [facility] Corticosteroids (1 source) fluticasone Drug Allergy 3 Other: See [facility] Work Phone: OLANZapine (1 source) OLANZapine Drug Allergy 7 [facility] (20 sources) Bee pollen; Translations: [BEE POLLEN] Drug Allergy 0 Other: See Comments [place], [place] (20 sources) fluticasone Drug Allergy 0 [place], [place] (20 sources) lamoTRIgine; Translations: [LAMOTRIGINE] Drug Allergy 8 [place], [place] (20 sources) OLANZapine; Translations: [OLANZAPINE] Drug Allergy 7 [place], [place] (20 sources) fluticasone; Translations: [FLUTICASONE PROPIONATE] Drug Allergy 3 Other: See [facility] Work Phone: (1 source) fluticasone Drug Allergy 0 [facility] Repository (1 source) lamoTRIgine Drug Allergy 9 [facility] Repository (1 source) OLANZapine Drug Allergy 0 [facility] Repository Medications Current Medications Medication Drug Class(es) Dates Sig (Normalized) Sig (Original) acetaminophen 300 mg / codeine phosphate 60 mg oral tablet (19 sources) Opioid Agonist take 1 tablet by mouth every eight hours as needed acetaminophen-cod eine (TYLENOL-COD #4) 300-60 mg per tablet Take 1 tablet by mouth every 8 hours as needed. 500mg Active Comment on above: Take 1 tablet by donovan th every 8 hours as needed. 500mg [id number] actuat albuterol 0.09 mg/actuat metered dose [...] tablet (20 sources) Xanthine Oxidase Inhibitor Start: 05-23-20 25 take 1 tablet by mouth once daily allopurinol (ZYLOPRIM) 100 mg tablet Take 1 tablet by mouth once daily. 90 tablet 05/23/2025 Active Start: 07-27-2022 End: 05-23-2025 take 0.5 tablet by mouth once daily allopurinol (ZYLOPRIM) 100 mg tablet Take 0.5 tablets by mouth once daily. 07/27/2022 05/23/2025 Discontinued Comment on above: Take 0.5 tablets by [...] (20 sources) Dihydropyridine Calcium Channel Shaq Start: 02-14-20 20 take 1 tablet by mouth once daily Amlodipine 10 MG tablet Active 10 mg PO DAILY February 14, 2020 12:00am atorvastatin 10 mg oral tablet (20 sources) HMG-CoA Reductase Inhibitor Start: 02-14-20 20 take 2 tablets by mouth at bedtime [...] 1 tablet by donovan th once daily. cetirizine hydrochloride 10 mg oral tablet (1 source) Histamine-1 Receptor Antagonist Start: 0 take 5 mg by mouth once daily 5 mg, Oral, DAILY, First dose on Tue10/28/20 at 1999 Substituted for Loratadine (CLARITIN). cholecalciferol 1000 unt oral tablet (20 sources) Vitamin D Start: 0 take 2000 [IU] by mouth once daily 2,000 Units, Oral, DAILY, First dose on Tue10/28/20 at 2000 Maintenance Dose. Start: 02-14-2020 take 1 capsule by mo [facility] once daily Cholecalciferol (Vitamin D3) 2,000 [...] 20 mg/ml oral suspension (1 source) Uncompetitive C-nflgyy-X-aspartate Receptor Antagonist, Sigma-1 Agonist Start: 10-28-2020 take 5 mL by mouth every four hours as needed for cough 5 mL, Oral, EVERY 4 HOURS PRN, Cough, Starting Tue10/28/20 at 1936 docosahexaenoic acid 120 mg / eicosapentaenoic acid 180 mg oral capsule (1 source) take 1 capsule by mouth once daily Parlin-3 1000 MG CAPS Take 1 capsule by mouth daily 0 Active famotidine 20 mg oral tablet (20 sources) Histamine-2 Receptor Antagonist Start: 10-28-2020 take 40 mg by mouth once daily 40 mg, Oral, DAILY, First dose on Tue10/28/20 at 2000 Start: 02-14-2020 take 1 tablet by donovan [...] DAILY, Fir st dose on Tue10/28/20 at 2000 Start: 02-14-2020 Furosemide 40 MG tablet Active 60 mg PO DAILY February 14, 2020 12:00am Start: 02-14-2020 take 60 mg by mouth once daily Furosemide Active 60 MG PO DAILY February 14, 2020 12:00am take 3 tablets by [facility] once daily furosemide (LASIX) 20 MG [...] DAILY, First dose on Tue10/28/20 at 1999 Do not crush or divide film-coated tablets [...] Active Start: 03-06-2021 take 1 capsule by [facility] once daily lithium carbonate (ESKALITH) 300 mg capsule Take 300 mg by mouth once daily. 03/06/2021 Active Start: 10-28-2020 take 300 mg by mouth once tommy y 300 mg, Oral, NIGHTLY, First dose on Tue10/28/20 at 2100 Maintain adequate fluid and sodium intake Start: 04-02-2018 take 1 tablet by [facility] once daily at bedtime [place] Carbonate 300 MG tablet extended release Active 300 mg PO TWICE A DAY April 02, 2018 12:00am [facility] Comment on above: Take 150 mg by [...] Take 1 tablet by donovan once daily. magnesium hydroxide 240 mg/ml oral suspension (6 sources) take 10 mL by mouth once [...] Start: 02-14-2020 take 1 tablet by donovan at bedtime Melatonin 5 MG tablet,disintegrating Active 5 mg PO AT BEDTIME February 14, 2020 12:00am End: 05-23-2025 take 10 mg by mouth once daily at bedtime melatonin 3 mg capsules Take 10 mg by mouth daily at bedtime. 05/23/2025 Discontinued take 1 tablet by donovan once daily melatonin 10 mg tab Take 10 mg by mouth once daily. Active Comment on above: Take 10 mg by mouth daily at bedtime. Take 10 mg by mouth once daily. metFORMIN hydrochloride 1000 mg oral tablet (19 sources) Biguanide Start: 4 take 1 tablet [...] th once daily. omega-3 acid ethyl esters (snf) 1000 mg oral capsule (1 source) Start: 10-28-2020 take 1 capsule by mouth once daily 1 capsule, Oral, DAILY, First dose on Tue10/28/20 at 2000 Parlin-3 Fatty Acids-Fish Oil (20 sources) Start: 02-14-2020 Parlin-3 Fatty Acids-Fish Oil Active 1 EACH PO DAILY February 14, 2020 10:03am Start: 02-14-2020 Parlin-3 Fatty Acids-Fish Oil Active 1 EACH PO DAILY February 13, 2020 11:00pm Start: 02-14-2020 Parlin-3 Fatty Acids-Fish Oil Active 1 EACH PO DAILY February 14, 2020 12:00am Parlin-3 Fatty Acids-Fish Oil 1 EACH capsule (11 sources) Start: 02-14-2020 Parlin-3 Fatty Acids-Fish Oil 1 EACH capsule Active 1 NMA PO DAILY February 14, 2020 12:00am Start: 02-14-2020 Parlin-3 Fatty Acids-Fish Oil 1 EACH capsule Active 1 NMA PO DAILY February 13, 2020 11:00pm Fuhqi-5-XJU-EPA-Fish Oil 1,0 00 mg (120 mg-180 mg) cap (20 sources) take 1 capsule by mouth once daily Wtrgd-8-WAG-EPA-Fish Oil 1,000 mg (120 mg-180 mg) cap Take 1 capsule by mouth once daily. Active take 1 capsule by mouth once berna ly Agnjw-2-HUV-EPA-Fish Oil 1,000 mg (120 mg- 180 mg) cap Take 1 capsule by mouth once daily. 0 Active Comment on above: Take 1 capsule by mo [facility] once daily. omeprazole 40 mg delayed [...] Substituted for Omeprazole (PRILOSEC). polyethylene glycol 3350 41070 mg powder for oral solution (1 source) Osmotic Laxative Start: 10-28-20 20 17 g, Oral, DAILY PRN, Constipation, Starting Tue10/28/20 at 1936 First line therapy for constipation Promethazine (1 source) Phenothiazine Start: 10-28-20 20 promethazine (PHENERGAN) tablet 12.5 mg 24 hr QUEtiapine 300 mg extended release oral tablet (20 sources) Atypical Antipsychotic Start: 10-28-20 20 take 600 mg by mouth once daily 600 mg, Oral, NIGHTLY, First dose on Tue10/28/20 at 2100 Do not crush or break. Start: 02-14-2020 take 2 tablets by mo [facility] once daily Quetiapine 300 MG tablet Active [...] 0 Active take 2 tablets by mo [facility] once daily QUEtiapine (SEROQUEL XR) 300 MG [...] 1 tablet by donovan th three times a week. Completed/Discontinued Medications Medication Drug Class(es) Dates Sig (Normalized) Sig (Original) acetaminophen 500 mg oral tablet (20 sources) Start: 02-26-2025 End: 02-26-2025 take 1 dose by mouth once 1,000 mg, ORAL, ONCE, 1 dose, On Tue02/26/25 at 0930 Start: 02-12-2025 End: 02-12-2025 take 1 dose by mouth once 1,000 mg, ORAL, ONCE, 1 dose , On e 02/12/25 at 0930 Start: 08-09-2024 End: 08-09-2024 take [...] 650 mg take 1 tablet by donovan th every eight hours as needed acetaminophen (TYLENOL) 500 mg tablet Take 500 mg by mouth every 8 hours as needed for pain. Active Comment on above: Take 2 tablets by mo uth as directed. prior to Rituximab infusion. cefTRIAXone [...] mg, ORAL, ONCE, 1 dose, O n [facility] 08/09/24 at 0700 Start: 03-30-2022 End: 03-30-2023 diphenhydrAMINE (BENADRYL) 5 0 mg capsule Indications: Granulomatosis with polyangiitis, unspecified whether renal involvement (HCC) Take 1 capsule by mouth as directed. prior to Rituximab infusion. 1 capsule 0 03/30/2022 03/30/2023 Active Comment on above: Take 1 capsule by [facility] as directed. prior to Rituximab infusion. [...] 125 mg, INTRAVENOUS, ONCE, 1 dose, On Tue24 at 0700 Start: 03-30-2022 End: 03-30-2023 methylPREDNISolone sodium torrez ccinate (SOLU-MEDROL) 125 mg injection Indications: Granulomatosis with polyangiitis, unspecified whether renal involvement (HCC) Inject 2 mL intravenously as directed. prior to Rituximab infusion. 2 mL 0 03/30/2022 03/30/2023 Active Comment on above: Inject 2 mL intraven ously as directed. prior to Rituximab infusion. Iyycz-9-HPA-EPA-Fish Oil (FISH OIL) 1,000 mg (120 mg-180 mg) cap (6 sources) take 1 capsule by mouth once daily Oeysj-0-QMG-EPA-Fish Oil (FISH OIL) 1,000 mg (120 mg-180 [...] 0.9% 640 mL (RUXIENCE) (4 sources) Start: End: 1,000 mg, INTRAVENOUS, ONCE, 1 dose, On Tu02/26/25 at 1000, EXP: Refrigerate. Start: 02-12-2025 End: 02-12-2025 1,000 mg, INTRAVENOUS, ONCE, 1 dose, On Tue02/12/25 at 1000, EXP: Refrigerate. Start: 08-09-2024 End: 08-09-2024 1,000 mg, INTRAVENOUS, ONCE, 1 dose, On Tue08/09/24 at 0730, EXP: Refrigerate. Start: 05-05-2022 End: 05-05-2022 riTUXimab-pvvr 1,000 mg in N aCl 0.9% 640 mL (RUXIENCE) rivaroxaban 15 mg oral tablet (20 sources) Factor Xa Inhibitor Start: 08-11-2015 End: 09-04-2015 take 1 tablet by mouth twice daily Rivaroxaban (Xarelto) 15 MG tablet Discontinued 15 mg PO TWICE A DAY 42 0 August 11, 2015 12:00am September 04, 2015 [...] Onset: 03-29-2025 Episodic Diabetes mellitus with complications (12 sources) Chronic kidney disease stage 4 due [...] Hypokalemia; Translations: [Hypokalemia] Episodic Gastritis and duodenitis (12 sources) Chronic gastritis; Translations: [Unspecified chronic gastritis [...] [Chest pain, unspecified] 03-02-2019 Episodic Other aftercare (2 sources) Other usp (current) drug therapy; Translations: [Other usp (current) drug therapy] Onset: 11-14-2019 Episodic Other [...] unspecified] Onset: 8 08-23-2019 Episodic Epilepsy; convulsions (12 sources) Seizure; Translations: [Unspecified convulsions] Onset: 9 Resolved: 9 08-23-2019 Episodic Gastritis and duodenitis (12 sources) Acute gastritis; Translations: [Acute gastritis without bleeding] Onset: 8 Resolved: 0 02-11-2010 Episodic Nutritional deficiencies (12 sources) Undernutrition; Translations: [Mild protein-calorie malnutrition] Onset: [...] 9 08-23-2019 Episodic Other connective tissue disease (12 sources) Rupture of tendon of foot and ankle; Translations: [Spontaneous rupture of other tendons, unspecified ankle and foot] Onset: 9 Resolved: 6 07-30-2016 Episodic Other connective tissue disease (12 sources) Disorder of Achilles tendon; Translations: [Achilles tendinitis, unspecified leg] Onset: 0 Resolved: 6 07-30-2016 Episodic Other connective tissue disease (12 sources) Enthesopathy; Translations: [Enthesopathy, unspecified] Onset: 1 Resolved: 8 07-10-2018 Episodic Other connective tissue disease (12 sources) Pain of toe of left foot; Translations: [Pain in left toe(s)] Onset: 6 Resolved: 8 07-10-2018 Episodic Other gastrointestinal disorders (12 sources) Constipation; Translations: [Constipation, unspecified] Onset: 3 Resolved: 8 07-10-2018 Episodic Other gastrointestinal disorders (12 sources) Diarrhea; Translations: [Diarrhea, unspecified] Onset: 3 Resolved: 8 07-10-2018 Episodic Other injuries and conditions due to external causes (12 sources) Contusion; Translations: [Other injury of unspecified body region, initial encounter] Onset: 0 Resolved: 6 07-30-2016 Episodic Other nervous system disorders (12 sources) Disorder of brain; Translations: [Encephalopathy, unspecified] [...] Episodic Other nutritional; endocrine; and metabolic disorders (12 sources) Constitutional obesity; Translations: [Other obesity] Onset: 5 Resolved: 8 07-10-2018 Chronic Other screening for suspected conditions (not mental disorders or infectious disease) (20 sources) Electrocardiogram abnormal; Translations: [Abnormal electrocardiogram [ECG] [EKG]] Onset: 9 08-23-2019 Episodic Pneumonia (except that caused by tuberculosis or sexually transmitted disease) (14 sources) Pneumonia due to other virus not elsewhere classified; Translations: [Pneumonia, unspecified organism] Onset: 8 Resolved: 0 10-28-2020 Episodic Rehabilitation care; fitting of prostheses; and adjustment of devices (12 sources) Patient encounter status; Translations: [Other physical therapy] Onset: 1 Resolved: 8 07-10-2018 Episodic Residual codes; unclassified (20 sources) Confusional state; Translations: [Disorientation, unspecified] Onset: 9 01-08-2019 Episodic Residual codes; unclassified (12 sources) Tobacco user; Translations: [Tobacco use] Onset: 9 Resolved: 8 07-10-2018 Episodic Results Test Name Value Interpretation Reference Range Facility Lithiumon 05-02-2025 LI 0.53 mmol/L Low 0.60-1.20 [facility] Comment on above: Order Comment: 111.2 Performed By: #### L [id number], L501.9060, L100.0100, L501.2300 #### [facility] [address] [place], [place], [id number] Serum or plasma uric acid me asurement (mass/volume)Ordered By: Alfredo Phipps on 04-26-2025 Urate [Mass/Vol] 6.3 mg/dL 3.5-7.2 [facility] Comment on above: The drugs N-Acetylcy steine and Metamizole may falsely depress this assay. Uric Acidon 04-26-2025 URIC 6.3 mg/dL Normal 3.5-7.2 [facility] Comment on above: Order Comment: 111.2 Result Comment: The drugs N-Acetylcysteine and Metamizole may falsely depress this assay. Performed By: #### L 501.1400 #### [facility] [address] [place], [address] Absolute lymphocyte countOrd ered By: Adam Ferraro on 04-24-2025 Lymphocytes Auto (Unsp spec) [#/Vol] 2.17 10*3/uL 0.83-4.51 [facility] Absolute neutrophil countOrd ered By: Adam Ferraro on 04-24-2025 Neutrophils (Bld) [#/Vol] 6.4 10*3/uL 2.0-7.7 [facility] Anion gap in Serum or Plasma Ordered By: Adam Ferraro on 04-24-2025 Anion gap [Moles/Vol] 12 mmol/L 5-15 [facility] Automated lymphocyte count a s percentage of total leukocytesOrdered By: Adam Ferraro on 04-24-2025 Lymphocytes/100 WBC Auto (Unsp spec) 21.0 % 19-41 [facility] BUN/creatinine ratioOrdered By: Adam Ferraro on 04-24-2025 Urea nitrogen/Creatinine [Mass ratio] 10.5 mg/mg 10-20 [facility] Basophil percentageOrdered B y: Adam Ferraro on 04-24-2025 Basophils/100 WBC (Bld) 1.1 % High 0-1 [facility] Bilirubin, totalOrdered By: Adam Ferraro on 04-24-2025 Bilirubin [Mass/Vol] 0.16 mg/dL 0.00-1.[address] [facility] CBC W/Diff, Automatedon 04-14 Absolute Lymph 2.17 X10 3/uL Normal 0.83-4.51 [facility] Comment on above: Order Comment: 111.2 Performed By: #### L [id number], L501.9060, L100.0100, [id number] #### [facility] [address] [place], [place], [id number] Absolute Neut 6.4 X10 3/uL Normal 2.0-7.7 [facility] Comment on above: Order Comment: 111.2 Performed By: #### L [id number], [id number], L100.0100, [id number] #### [facility] [address] [place], [address] Basophils/100 WBC (Bld) 1.1 % High 0-1 [facility] Comment on above: Order Comment: 111.2 Performed By: #### L [id number], [id number], L100.0100, [id number] #### [facility] [address] [place], [address] Eosinophils/100 WBC (Bld) 5.1 % High 0-5 [facility] Comment on above: Order Comment: 111.2 Performed By: #### L [id number], [id number], L100.0100, [id number] #### [facility] [address] [place], [address] Erythrocyte distribution width (RBC) [Ratio] 13.1 % Normal 11.6-14.6 [facility] Comment on above: Order Comment: 111.2 Performed By: #### L 500.4050, L501.9060, L100.0100, [id number] #### [facility] [address] [place], [address] Hematocrit (Bld) [Volume fraction] 38.2 % Low 40-54 [facility] Comment on above: Order Comment: 111.2 Performed By: #### L [id number], [id number], L100.0100, [id number] #### [facility] [address] [place], [address] Hemoglobin (Bld) [Mass/Vol] 12.7 g/dL Low 13.0-16.5 [facility] Comment on above: Order Comment: 111.2 Performed By: #### L 500.4050, [id number], L100.0100, [id number] #### [facility] [address] [place], [address] IG% 0.700 Normal 0.0-0.9 [facility] Comment on above: Order Comment: 111.2 Result Comment: IG% - Immature Granulocytes (promyelocytes, myelocytes and metamyelocytes) > 1% indicates that a LEFT SHIFT is Present. Performed By: #### L 500.4050, [id number], L100.0100, [id number] #### [facility] [address] [place], [address] Lymphocytes/100 WBC (Bld) 21.0 % Normal 19-41 [facility] Comment on above: Order Comment: 111.2 Performed By: #### L 500.4050, [id number], L100.0100, [id number] #### [facility] [address] [place], [address] MCH (RBC) [Entitic mass] 30.4 pg Normal 27.0-32.0 [facility] Comment on above: Order Comment: 111.2 Performed By: #### L 500.4050, [id number], L100.0100, [id number] #### [facility] [address] [place], [address] MCHC (RBC) [Mass/Vol] 33.2 g/dL Normal 32-36 [facility] Comment on above: Order Comment: 111.2 Performed By: #### L 500.4050, [id number], L100.0100, [id number] #### [facility] [address] [place], [address] MCV (RBC) [Entitic vol] 91.4 fL Normal 80-94 [facility] Comment on above: Order Comment: 111.2 Performed By: #### L 500.4050, [id number], L100.0100, [id number] #### [facility] [address] [place], [address] Monocytes/100 WBC (Bld) 9.9 % Normal 0-10 [facility] Comment on above: Order Comment: 111.2 Performed By: #### L 500.4050, [id number], L100.0100, [id number] #### [facility] [address] [place], [address] Neutrophils/100 WBC (Bld) 62.2 % Normal 47-70 [facility] Comment on above: Order Comment: 111.2 Performed By: #### L 500.4050, [id number], L100.0100, [id number] #### [facility] [address] [place], [address] Nucleated RBC (Bld) [#/Vol] 0 10*3/uL Normal 0-5 [facility] Comment on above: Order Comment: 111.2 Performed By: #### L 500.4050, [id number], L100.0100, [id number] #### [facility] [address] [place], [address] Platelet mean volume (Bld) [Entitic vol] 9.4 fL Normal 6.2-12.0 [facility] Comment on above: Order Comment: 111.2 Performed By: #### L 500.4050, L501.9060, L100.0100, L501.2300 #### [facility] [address] [place], [address] Platelets (Bld) [#/Vol] 245 10*3/uL Normal 150-450 [facility] Comment on above: Order Comment: 111.2 Performed By: #### L 500.4050, L501.9060, L100.0100, L501.2300 #### [facility] [address] [place], [address] RBC (Bld) [#/Vol] 4.18 10*6/uL Low 4.6-6.2 [facility] Comment on above: Order Comment: 111.2 Performed By: #### L 500.4050, L501.9060, L100.0100, L501.2300 #### [facility] [address] [place], [address] RDW SD 43.9 fl Normal 35.1-43.9 [facility] Comment on above: Order Comment: 111.2 Performed By: #### L 500.4050, L501.9060, L100.0100, L501.2300 #### [facility] [address] [place], [address] WBC (Bld) [#/Vol] 10.3 10*3/uL Normal 4.4-11.0 [facility] Comment on above: Order Comment: 111.2 Performed By: #### L 500.4050, L501.9060, L100.0100, L501.2300 #### [facility] [address] [place], [address] Carbon dioxide, total [Moles /volume] in Central venous bloodOrdered By: Adam Ferraro on 04-24-2025 CO2 [Moles/Vol] 21.9 mmol/L 21.0-32.0 [facility] Chloride assayOrdered By: Sabino Ferraro on 04-24-2025 Chloride [Moles/Vol] 107 mmol/L 98-[address] [facility] Comprehensive Metabolic Prof ilon 04-24-2025 Albumin [Mass/Vol] 3.5 g/dL Normal 3.4-4.8 [facility] Comment on above: Order Comment: 111.2 Performed By: #### L 500.4050, L501.9060, L100.0100, L501.2300 #### [facility] [address] [place], [address] Albumin/Globulin [Mass ratio] 1.5 {ratio} Normal 0.9-2.4 [facility] Comment on above: Order Comment: 111.2 Performed By: #### L 500.4050, L501.9060, L100.0100, L501.2300 #### [facility] [address] [place], [address] ALK PHOS 76 U/L Normal 40-129 [facility] Comment on above: Order Comment: 111.2 Performed By: #### L 500.4050, L501.9060, L100.0100, L501.2300 #### [facility] [address] [place], [address] ALT [Catalytic activity/Vol] 11 U/L Normal <=46 [facility] Comment on above: Order Comment: 111.2 Performed By: #### L 500.4050, L501.9060, L100.0100, L501.2300 #### [facility] [address] [place], [address] AST [Catalytic activity/Vol] 16 U/L Normal <=37 [facility] Comment on above: Order Comment: 111.2 Performed By: #### L 500.4050, L501.9060, L100.0100, L501.2300 #### [facility] [address] [place], [address] Bilirubin [Mass/Vol] 0.16 mg/dL Normal 0.00-1.[address] [facility] Comment on above: Order Comment: 111.2 Performed By: #### L 500.4050, L501.9060, L100.0100, L501.2300 #### [facility] [address] [place], [address] BUN/CRE 10.5 RATIO Normal 10-20 [facility] Comment on above: Order Comment: 111.2 Performed By: #### L 500.4050, L501.9060, L100.0100, L501.2300 #### [facility] [address] [place], [address] Calcium [Mass/Vol] 9.3 mg/dL Normal 7.6-11.0 [facility] Comment on above: Order Comment: 111.2 Performed By: #### L 500.4050, L501.9060, L100.0100, L501.2300 #### [facility] [address] [place], [address] Chloride [Moles/Vol] 107 mmol/L Normal 98-[address] [facility] Comment on above: Order Comment: 111.2 Performed By: #### L 500.4050, L501.9060, L100.0100, L501.2300 #### [facility] [address] [place], [address] CO2 [Moles/Vol] 21.9 mmol/L Normal 21.0-32.0 [facility] Comment on above: Order Comment: 111.2 Performed By: #### L 500.4050, L501.9060, L100.0100, L501.2300 #### [facility] [address] [place], [address] Creatinine [Mass/Vol] 2.41 mg/dL High 0.70-1.20 [facility] Comment on above: Order Comment: 111.2 Performed By: #### L 500.4050, L501.9060, L100.0100, L501.2300 #### [facility] [address] [place], [address] GAP 12 Normal 5-15 [facility] Comment on above: Order Comment: 111.2 Performed By: #### L 500.4050, L501.9060, L100.0100, L501.2300 #### [facility] [address] [place], [address] GFR/1.73 sq M.predicted among non-blacks MDRD (S/P/Bld) [Vol rate/Area] 30 mL/min/{1.73_m2} Low >60 [facility] Comment on above: Order Comment: 111.2 Result Comment: mL/m in/1.73m2 CKD-EPI Creatinine Equation (2020) Performed By: #### L 500.4050, L501.9060, L100.0100, L501.2300 #### [facility] [address] [place], [address] Globulin (S) [Mass/Vol] 2.3 g/dL Normal 2.2-4.2 [facility] Comment on above: Order Comment: 111.2 Performed By: #### L 500.4050, L501.9060, L100.0100, L501.2300 #### [facility] [address] [place], [address] Glucose [Mass/Vol] 123 mg/dL High 70-99 [facility] Comment on above: Order Comment: 111.2 Performed By: #### L 500.4050, L501.9060, L100.0100, L501.2300 #### [facility] [address] [place], [address] Potassium [Moles/Vol] 4.6 mmol/L Normal 3.3-5.1 [facility] Comment on above: Order Comment: 111.2 Performed By: #### L 500.4050, L501.9060, L100.0100, L501.2300 #### [facility] [address] [place], [address] Sodium [Moles/Vol] 140 mmol/L Normal 133-145 [facility] Comment on above: Order Comment: 111.2 Performed By: #### L 500.4050, L501.9060, L100.0100, L501.2300 #### [facility] [address] [place], [address] T PROT 5.9 g/dL Normal 5.9-8.4 [facility] Comment on above: Order Comment: 111.2 Performed By: #### L 500.4050, L501.9060, L100.0100, L501.2300 #### [facility] [address] [place], [address] Urea nitrogen [Mass/Vol] 25 mg/dL High 4-19 [facility] Comment on above: Order Comment: 111.2 Performed By: #### L 500.4050, L501.9060, L100.0100, L501.2300 #### [facility] [address] [place], [address] Eosinophil percentageOrdered By: Adam Ferraro on 04-24-2025 Eosinophils/100 WBC (Bld) 5.1 % High 0-5 [facility] Erythrocyte distribution wid th ratioOrdered By: Adam Ferraro on 04-24-2025 Erythrocyte distribution width (RBC) [Ratio] 13.1 % 11.6-14.6 [facility] Erythrocyte distribution wid th standard deviationOrdered By: Adam Ferraro on 04-24-2025 Erythrocyte distribution width (RBC) [Ratio] 43.9 fl 35.1-43.9 [facility] Glomerular filtration rate ( GFR) estimation/1.73 sq m using serum, plasma, or whole bOrdered By: Adam Ferraro on 04-24-2025 GFR/1.73 sq M.predicted among non-blacks MDRD (S/P/Bld) [Vol rate/Area] 30 mL/min/{1.73_m2} Low >60 [facility] Comment on above: mL/min/1.73m2 CKD-EP I Creatinine Equation (2020) Hematocrit Auto (Bld) [Volum e fraction]Ordered By: Adam Ferraro on 04-24-2025 Hematocrit (Bld) [Volume fraction] 38.2 % Low 40-54 [facility] Hemoglobin measurementOrdere d By: Adam Ferraro on 04-24-2025 Hemoglobin (Bld) [Mass/Vol] 12.7 g/dL Low 13.0-16.5 [facility] Immature granulocytes/100 WB C Auto (Bld)Ordered By: Adam Ferraro on 04-24-2025 Immature granulocytes/100 WBC (Bld) 0.700 % 0.0-0.9 [facility] Comment on above: IG% - Immature Granu locytes (promyelocytes, myelocytes and metamyelocytes) > 1% indicates that a LEFT SHIFT is Present. Laboratory - Chemistry and C hemistry - challengeOrdered By: Adam Ferraro on 04-24-2025 AST [Catalytic activity/Vol] 16 U/L <38 [facility] Lithiumon 04-24-2025 LI 0.60 mmol/L Normal 0.60-1.20 [facility] Comment on above: Order Comment: 111.2 [id number] Performed By: #### L 500.4050, L501.9060, L100.0100, L501.2300 #### [facility] [address] [place], [address] MCV (mean corpuscular volume ) determinationOrdered By: Adam Ferraro on 04-24-2025 MCV (RBC) [Entitic vol] 91.4 fL 80-94 [facility] Mean corpuscular hemoglobin (MCH) determinationOrdered By: Adam Ferraro on 04-24-2025 MCH (RBC) [Entitic mass] 30.4 pg 27.0-32.0 [facility] Mean corpuscular hemoglobin concentration (MCHC) determinationOrdered By: Adam Ferraro on 04-24-2025 MCHC (RBC) [Mass/Vol] 33.2 g/dL 32-36 [facility] Mean platelet volume determi nationOrdered By: Adam Ferraro on 04-24-2025 Platelet mean volume (Bld) [Entitic vol] 9.4 fL 6.2-12.0 [facility] Monocyte percentageOrdered B y: Adam Ferraro on 04-24-2025 Monocytes/100 WBC (Bld) 9.9 % 0-10 [facility] Neutrophil percentageOrdered By: Adam Ferraro on 04-24-2025 Neutrophils/100 WBC (Bld) 62.2 % 47-70 [facility] Nucleated red blood cell per centageOrdered By: Adam Ferraro on 04-24-2025 Nucleated RBC/100 WBC (Bld) [Ratio] 0 % 0-5 [facility] Phosphoruson 04-24-2025 Phosphate [Mass/Vol] 4.8 mg/dL High 2.7-4.[address] [facility] Comment on above: Order Comment: 111.2 Performed By: #### L 500.4050, L501.9060, L100.0100, L501.2300 #### [facility] [address] [place], [address] Platelet countOrdered By: Sabino Ferraro on 04-24-2025 Platelets (Bld) [#/Vol] 245 10*3/uL 150-450 [facility] Potassium measurement (mass/ volume)Ordered By: Adam Ferraro on 04-24-2025 Potassium (Unsp spec) [Mass/Vol] 4.6 mmol/L 3.3-5.1 [facility] RBC Auto (Bld) [#/Vol]Ordere d By: Adam Ferraro on 04-24-2025 RBC (Bld) [#/Vol] 4.18 10*6/uL Low 4.6-6.2 [facility] Serum creatinine measurement (mass/volume)Ordered By: Adam Ferraro on 04-24-2025 Creatinine [Mass/Vol] 2.41 mg/dL High 0.70-1.20 [facility] Serum globulin measurementOr dered By: Adam Ferraro on 04-24-2025 Globulin (S) [Mass/Vol] 2.3 g/dL 2.2-4.2 [facility] Serum glucose measurement (m ass/volume)Ordered By: Adam Ferraro on 04-24-2025 Glucose [Mass/Vol] 123 mg/dL High 70-99 [facility] Serum or plasma alanine sesay otransferase (ALT) measurementOrdered By: Adam Ferraro on 04-24-2025 ALT [Catalytic activity/Vol] 11 U/L <47 [facility] Serum or plasma albumin you urement (mass/volume)Ordered By: Adam Ferraro on 04-24-2025 Albumin [Mass/Vol] 3.5 g/dL 3.4-4.8 [facility] Serum or plasma albumin/glob ulin mass ratioOrdered By: Adam Ferraro on 04-24-2025 Albumin/Globulin [Mass ratio] 1.5 {ratio} 0.9-2.4 [facility] Serum or plasma alkaline hal sphatase measurementOrdered By: Adam Ferraro on 04-24-2025 ALP [Catalytic activity/Vol] 76 U/L 40-129 [facility] Serum or plasma calcium you urement (mass/volume)Ordered By: Adam Ferraro on 04-24-2025 Calcium [Mass/Vol] 9.3 mg/dL 7.6-11.0 [facility] Serum or plasma urea nitroge n measurement (mass/volume)Ordered By: Adam Ferraro on 04-24-2025 Urea nitrogen [Mass/Vol] 25 mg/dL High 4-19 [facility] Sodium levelOrdered By: Spike Ferraro on 04-24-2025 Sodium [Moles/Vol] 140 mmol/L 133-145 [facility] Total proteinOrdered By: Benoit Ferraro on 04-24-2025 Protein [Mass/Vol] 5.9 g/dL 5.9-8.4 [facility] White blood cell (WBC) count Ordered By: Adam Ferraro on 04-24-2025 WBC (Bld) [#/Vol] 10.3 10*3/uL 4.4-11.0 [facility] Lithiumon 04-01-2025 LI 0.64 mmol/L Normal 0.60-1.20 [facility] Comment on above: Order Comment: 111.2 [id number] Performed By: #### L 501.9060 #### [facility] [address] [place], [address] Serum or plasma uric acid me asurement (mass/volume)Ordered By: Alfredo Phipps on 03-27-2025 Urate [Mass/Vol] 6.5 mg/dL 3.5-7.2 [facility] Comment on above: The drugs N-Acetylcy steine and Metamizole may falsely depress this assay. Uric Acidon 03-27-2025 URIC 6.5 mg/dL Normal 3.5-7.2 [facility] Comment on above: Order Comment: 111.2 Result Comment: The drugs N-Acetylcysteine and Metamizole may falsely depress this assay. Performed By: #### L 500.4050, L501.9060, L100.0100, L501.2300 #### [facility] [address] [place], [address] Microalb:Creat Ratio,Random URon 03-05-2025 Creatinine [Mass/Vol] 72.80 mg/dL Normal 39.00- 259. 00 [facility] Comment on above: Performed By: #### L 500.4050, L501.9060, L100.0100, L501.2300 #### [facility] [address] [place], [address] MALB:CREAT UNABLE TO CALCULATE Normal [facility] Comment on above: Performed By: #### L 500.4050, L501.9060, L100.0100, L501.2300 #### [facility] [address] [place], [address] MICROALBUMIN,UR < 12.0 Normal NO RANGE EST. [facility] Comment on above: Performed By: #### L 500.4050, L501.9060, L100.0100, L501.2300 #### [facility] [address] [place], [address] Microalbumin/creat ratio urO rdered By: Adam Ferraro on 03-04-2025 Urine microalbumin/creatinine ratio measurement UNABLE TO CALCULATE mg/g CRE [facility] Random urine creatinine you urement (mass/volume)Ordered By: Adam Ferraro on 03-04-2025 Creatinine Unsp time (U) [Mass/Vol] 72.80 mg/dL 39.00-259. 00 [facility] Urine albumin measurement wi detection limit of 20 mg/L or less (mass/volume)Ordered By: Adam Ferraro on 03-04-2025 Albumin DL <= 20 mg/L (U) [Mass/Vol] < 12.0 mg/L NO RANGE EST. [facility] Absolute lymphocyte countOrd ered By: Alfredo Phipps on 02-27-2025 Lymphocytes Auto (Unsp spec) [#/Vol] 1.42 10*3/uL 0.83-4.51 [facility] Absolute neutrophil countOrd ered By: Alfredo Phipps on 02-27-2025 Neutrophils (Bld) [#/Vol] 17.7 10*3/uL High 2.0-7.7 [facility] Anion gap in Serum or Plasma Ordered By: Alfredo Phipps on 02-27-2025 Anion gap [Moles/Vol] 12 mmol/L 5-15 [facility] Automated lymphocyte count a s percentage of total leukocytesOrdered By: Alfredo Phipps on 02-27-2025 Lymphocytes/100 WBC Auto (Unsp spec) 6.9 % Low 19-41 [facility] BUN/creatinine ratioOrdered By: Alfredo Phipps on 02-27-2025 Urea nitrogen/Creatinine [Mass ratio] 12.7 mg/mg 10-20 [facility] Basophil percentageOrdered B y: Alfredo Phipps on 02-27-2025 Basophils/100 WBC (Bld) 0.2 % 0-1 [facility] Bilirubin directOrdered By: Alfredo Phipps on 02-27-2025 Bilirubin.direct [Mass/Vol] 0.10 mg/dL 0.00-0.30 [facility] Bilirubin, Directon 02-28-20 25 Bilirubin.direct [Mass/Vol] 0.10 mg/dL Normal 0.00-0.30 [facility] Comment on above: Order Comment: 111.2 Performed By: #### L 500.4050, L501.9029, L100.0100, L501.2300 #### [facility] [address] [place], [address] Bilirubin, totalOrdered By: Alfredo Phipps on 02-27-2025 Bilirubin [Mass/Vol] 0.19 mg/dL 0.00-1.[address] [facility] CBC W/Diff, Automatedon 04- Absolute Lymph 1.42 X10 3/uL Normal 0.83-4.51 [facility] Comment on above: Order Comment: 111.2 Performed By: #### L 500.4050, L501.9060, L100.0100, L501.2300 #### [facility] [address] [place], [address] Absolute Neut 17.7 X10 3/uL High 2.0-7.7 [facility] Comment on above: Order Comment: 111.2 Performed By: #### L 500.4050, L501.9060, L100.0100, L501.2300 #### [facility] [address] [place], [address] Basophils/100 WBC (Bld) 0.2 % Normal 0-1 [facility] Comment on above: Order Comment: 111.2 Performed By: #### L 500.4050, L501.9060, L100.0100, L501.2300 #### [facility] [address] [place], [address] Eosinophils/100 WBC (Bld) 0.0 % Normal 0-5 [facility] Comment on above: Order Comment: 111.2 Performed By: #### L 500.4050, L501.9060, L100.0100, L501.2300 #### [facility] [address] [place], [address] Erythrocyte distribution width (RBC) [Ratio] 13.3 % Normal 11.6-14.6 [facility] Comment on above: Order Comment: 111.2 Performed By: #### L 500.4050, L501.9060, L100.0100, L501.2300 #### [facility] [address] [place], [address] Hematocrit (Bld) [Volume fraction] 39.0 % Low 40-54 [facility] Comment on above: Order Comment: 111.2 Performed By: #### L 500.4050, L501.9060, L100.0100, L501.2300 #### [facility] [address] [place], [address] Hemoglobin (Bld) [Mass/Vol] 13.1 g/dL Normal 13.0-16.5 [facility] Comment on above: Order Comment: 111.2 Performed By: #### L 500.4050, L501.9060, L100.0100, L501.2300 #### [facility] [address] [place], [address] IG% 0.900 Normal 0.0-0.9 [facility] Comment on above: Order Comment: 111.2 Result Comment: IG% - Immature Granulocytes (promyelocytes, myelocytes and metamyelocytes) > 1% indicates that a LEFT SHIFT is Present. Performed By: #### L 500.4050, L501.9060, L100.0100, L501.2300 #### [facility] [address] [place], [address] Lymphocytes/100 WBC (Bld) 6.9 % Low 19-41 [facility] Comment on above: Order Comment: 111.2 Performed By: #### L 500.4050, L501.9060, L100.0100, L501.2300 #### [facility] [address] [place], [address] MCH (RBC) [Entitic mass] 30.1 pg Normal 27.0-32.0 [facility] Comment on above: Order Comment: 111.2 Performed By: #### L 500.4050, L501.9060, L100.0100, L501.2300 #### [facility] [address] [place], [address] MCHC (RBC) [Mass/Vol] 33.6 g/dL Normal 32-36 [facility] Comment on above: Order Comment: 111.2 Performed By: #### L 500.4050, L501.9060, L100.0100, L501.2300 #### [facility] [address] [place], [address] MCV (RBC) [Entitic vol] 89.7 fL Normal 80-94 [facility] Comment on above: Order Comment: 111.2 Performed By: #### L 500.4050, L501.9060, L100.0100, L501.2300 #### [facility] [address] [place], [address] Monocytes/100 WBC (Bld) 6.4 % Normal 0-10 [facility] Comment on above: Order Comment: 111.2 Performed By: #### L 500.4050, L501.9060, L100.0100, L501.2300 #### [facility] [address] [place], [address] Neutrophils/100 WBC (Bld) 85.6 % High 47-70 [facility] Comment on above: Order Comment: 111.2 Performed By: #### L 500.4050, L501.9060, L100.0100, L501.2300 #### [facility] [address] [place], [address] Nucleated RBC (Bld) [#/Vol] 0 10*3/uL Normal 0-5 [facility] Comment on above: Order Comment: 111.2 Performed By: #### L 500.4050, L501.9060, L100.0100, L501.2300 #### [facility] [address] [place], [address] Platelet mean volume (Bld) [Entitic vol] 9.3 fL Normal 6.2-12.0 [facility] Comment on above: Order Comment: 111.2 Performed By: #### L 500.4050, L501.9060, L100.0100, L501.2300 #### [facility] [address] [place], [address] Platelets (Bld) [#/Vol] 274 10*3/uL Normal 150-450 [facility] Comment on above: Order Comment: 111.2 Performed By: #### L 500.4050, L501.9060, L100.0100, L501.2300 #### [facility] [address] [place], [address] RBC (Bld) [#/Vol] 4.35 10*6/uL Low 4.6-6.2 [facility] Comment on above: Order Comment: 111.2 Performed By: #### L 500.4050, L501.9060, L100.0100, L501.2300 #### [facility] [address] [place], [address] RDW SD 43.8 fl Normal 35.1-43.9 [facility] Comment on above: Order Comment: 111.2 Performed By: #### L 500.4050, L501.9060, L100.0100, L501.2300 #### [facility] [address] [place], [address] WBC (Bld) [#/Vol] 20.6 10*3/uL High 4.4-11.0 [facility] Comment on above: Order Comment: 111.2 Performed By: #### L 500.4050, L501.9060, L100.0100, L501.2300 #### [facility] [address] [place], [address] Carbon dioxide, total [Moles /volume] in Central venous bloodOrdered By: Alfredo Phipps on 02-27-2025 CO2 [Moles/Vol] 20.5 mmol/L Low 21.0-32.0 [facility] Chloride assayOrdered By: Chan Fiore on 02-27-2025 Chloride [Moles/Vol] 105 mmol/L 98-[address] [facility] Comprehensive Metabolic Prof ilon 02-27-2025 Albumin [Mass/Vol] 3.9 g/dL Normal 3.4-4.8 [facility] Comment on above: Order Comment: 111.2 Performed By: #### L 500.4050, L501.9060, L100.0100, L501.2300 #### [facility] [address] [place], [address] Albumin/Globulin [Mass ratio] 1.6 {ratio} Normal 0.9-2.4 [facility] Comment on above: Order Comment: 111.2 Performed By: #### L 500.4050, L501.9060, L100.0100, L501.2300 #### [facility] [address] [place], [address] ALK PHOS 66 U/L Normal 40-129 [facility] Comment on above: Order Comment: 111.2 Performed By: #### L 500.4050, L501.9060, L100.0100, L501.2300 #### [facility] [address] [place], [address] ALT [Catalytic activity/Vol] 13 U/L Normal <=46 [facility] Comment on above: Order Comment: 111.2 Performed By: #### L 500.4050, L501.9060, L100.0100, L501.2300 #### [facility] [address] [place], [address] AST [Catalytic activity/Vol] 11 U/L Normal <=37 [facility] Comment on above: Order Comment: 111.2 Performed By: #### L 500.4050, L501.9060, L100.0100, L501.2300 #### [facility] [address] [place], [address] Bilirubin [Mass/Vol] 0.19 mg/dL Normal 0.00-1.[address] [facility] Comment on above: Order Comment: 111.2 Performed By: #### L 500.4050, L501.9060, L100.0100, L501.2300 #### [facility] [address] [place], [address] BUN/CRE 12.7 RATIO Normal 10-20 [facility] Comment on above: Order Comment: 111.2 Performed By: #### L 500.4050, L501.9060, L100.0100, L501.2300 #### [facility] [address] [place], [address] Calcium [Mass/Vol] 9.8 mg/dL Normal 7.6-11.0 [facility] Comment on above: Order Comment: 111.2 Performed By: #### L 500.4050, L501.9060, L100.0100, L501.2300 #### [facility] [address] [place], [address] Chloride [Moles/Vol] 105 mmol/L Normal 98-[address] [facility] Comment on above: Order Comment: 111.2 Performed By: #### L 500.4050, L501.9060, L100.0100, L501.2300 #### [facility] [address] [place], [address] CO2 [Moles/Vol] 20.5 mmol/L Low 21.0-32.0 [facility] Comment on above: Order Comment: 111.2 Performed By: #### L 500.4050, L501.9060, L100.0100, [id number] #### [facility] [address] [place], [address] Creatinine [Mass/Vol] 2.32 mg/dL High 0.70-1.20 [facility] Comment on above: Order Comment: 111.2 Performed By: #### L 500.4050, L501.9060, L100.0100, [id number] #### [facility] [address] [place], [address] GAP 12 Normal 5-15 [facility] Comment on above: Order Comment: 111.2 Performed By: #### L 500.4050, L501.9060, L100.0100, L501.2300 #### [facility] [address] [place], [address] GFR/1.73 sq M.predicted among non-blacks MDRD (S/P/Bld) [Vol rate/Area] 31 mL/min/{1.73_m2} Low >60 [facility] Comment on above: Order Comment: 111.2 Result Comment: mL/m in/1.73m2 CKD-EPI Creatinine Equation (2020) Performed By: #### L 500.4050, L501.9060, L100.0100, L501.2300 #### [facility] [address] [place], [address] Globulin (S) [Mass/Vol] 2.4 g/dL Normal 2.2-4.2 [facility] Comment on above: Order Comment: 111.2 Performed By: #### L 500.4050, L501.9060, L100.0100, L501.2300 #### [facility] [address] [place], [address] Glucose [Mass/Vol] 134 mg/dL High 70-99 [facility] Comment on above: Order Comment: 111.2 Performed By: #### L 500.4050, L501.9060, L100.0100, L501.2300 #### [facility] [address] [place], [address] Potassium [Moles/Vol] 4.4 mmol/L Normal 3.3-5.1 [facility] Comment on above: Order Comment: 111.2 Performed By: #### L 500.4050, L501.9060, L100.0100, L501.2300 #### [facility] [address] [place], [address] Sodium [Moles/Vol] 138 mmol/L Normal 133-145 [facility] Comment on above: Order Comment: 111.2 Performed By: #### L 500.4050, L501.9060, L100.0100, L501.2300 #### [facility] [address] [place], [address] T PROT 6.2 g/dL Normal 5.9-8.4 [facility] Comment on above: Order Comment: 111.2 Performed By: #### L 500.4050, L501.9060, L100.0100, L501.2300 #### [facility] [address] [place], [address] Urea nitrogen [Mass/Vol] 29 mg/dL High 4-19 [facility] Comment on above: Order Comment: 111.2 Performed By: #### L 500.4050, L501.9060, L100.0100, L501.2300 #### [facility] [address] [place], [address] Eosinophil percentageOrdered By: Alfredo Phipps on 02-27-2025 Eosinophils/100 WBC (Bld) 0.0 % 0-5 [facility] Erythrocyte distribution wid th (RBC) [Ratio]Ordered By: Alfredo Phipps on 02-27-2025 Erythrocyte distribution width (RBC) [Entitic vol] 43.8 fL 35.1-43.9 [facility] Erythrocyte distribution wid th ratioOrdered By: Alfredo Phipps on 02-27-2025 Erythrocyte distribution width (RBC) [Ratio] 13.3 % 11.6-14.6 [facility] Erythrocyte distribution wid th standard deviationOrdered By: Alfredo Phipps on 02-27-2025 Erythrocyte distribution width (RBC) [Ratio] 43.8 fl 35.1-43.9 [facility] GFR/1.73 sq M.predicted miles g non-blacks MDRD (S/P/Bld) [Vol rate/Area]Ordered By: Alfredo Phipps on 02-27-2025 Estimated GFR (MDRD) Non-Af Amer 31 Low >60 [facility] Comment on above: mL/min/1.73m2 CKD-EP I Creatinine Equation (2020) Glomerular filtration rate ( GFR) estimation/1.73 sq m using serum, plasma, or whole bOrdered By: Alfredo Phipps on 02-27-2025 GFR/1.73 sq M.predicted among non-blacks MDRD (S/P/Bld) [Vol rate/Area] 31 mL/min/{1.73_m2} Low >60 [facility] Comment on above: mL/min/1.73m2 CKD-EP I Creatinine Equation (2020) Hematocrit Auto (Bld) [Volum e fraction]Ordered By: Alfredo Phipps on 02-27-2025 Hematocrit (Bld) [Volume fraction] 39.0 % Low 40-54 [facility] Hemoglobin measurementOrdere d By: Alfredo Phipps on 02-27-2025 Hemoglobin (Bld) [Mass/Vol] 13.1 g/dL 13.0-16.5 [facility] Immature granulocytes/100 WB C Auto (Bld)Ordered By: Alfredo Phipps on 02-27-2025 Immature granulocytes/100 WBC (Bld) 0.900 % 0.0-0.9 [facility] Comment on above: IG% - Immature Granu locytes (promyelocytes, myelocytes and metamyelocytes) > 1% indicates that a LEFT SHIFT is Present. Laboratory - Chemistry and C hemistry - challengeOrdered By: Alfredo Phipps on 02-27-2025 AST [Catalytic activity/Vol] 11 U/L <38 [facility] Lithiumon 02-27-2025 LI 0.60 mmol/L Normal 0.60-1.20 [facility] Comment on above: Order Comment: 111.2 Performed By: #### L 500.4050, L501.9060, L100.0100, L501.2300 #### [facility] [address] [place], [address] [place] levelOrdered By: Jennifer Phipps on 02-27-2025 [place] Level 0.60 mmol/L 0.60-1.20 [facility] Lymphocytes Auto (Unsp spec) [#/Vol]Ordered By: Alfredo Phipps on 02-27-2025 Lymphocytes (Bld) [#/Vol] 1.42 10*3/uL 0.83-4.51 [facility] Lymphocytes/100 WBC Auto (Un sp spec)Ordered By: Alfredo Phipps on 02-27-2025 Lymphocytes/100 WBC (Bld) 6.9 % Low 19-41 [facility] MCV (mean corpuscular volume ) determinationOrdered By: Alfredo Phipps on 02-27-2025 MCV (RBC) [Entitic vol] 89.7 fL 80-94 [facility] Mean corpuscular hemoglobin (MCH) determinationOrdered By: Alfredo Phipps on 02-27-2025 MCH (RBC) [Entitic mass] 30.1 pg 27.0-32.0 [facility] Mean corpuscular hemoglobin concentration (MCHC) determinationOrdered By: Alfredo Phipps on 02-27-2025 MCHC (RBC) [Mass/Vol] 33.6 g/dL 32-36 [facility] Mean platelet volume determi nationOrdered By: Alfredo Phipps on 02-27-2025 Platelet mean volume (Bld) [Entitic vol] 9.3 fL 6.2-12.0 [facility] Monocyte percentageOrdered B y: Alfredo Phipps on 02-27-2025 Monocytes/100 WBC (Bld) 6.4 % 0-10 [facility] Neutrophil percentageOrdered By: Alfredo Phipps on 02-27-2025 Neutrophils/100 WBC (Bld) 85.6 % High 47-70 [facility] Nucleated red blood cell per centageOrdered By: Alfredo Phipps on 02-27-2025 Nucleated RBC/100 WBC (Bld) [Ratio] 0 % 0-5 [facility] Platelet countOrdered By: Chan Fiore on 02-27-2025 Platelets (Bld) [#/Vol] 274 10*3/uL 150-450 [facility] Potassium (Unsp spec) [Mass/ Vol]Ordered By: Alfredo Phipps on 02-27-2025 Potassium [Moles/Vol] 4.4 mmol/L 3.3-5.1 [facility] Potassium measurement (mass/ volume)Ordered By: Alfredo Phipps on 02-27-2025 Potassium (Unsp spec) [Mass/Vol] 4.4 mmol/L 3.3-5.1 [facility] RBC Auto (Bld) [#/Vol]Ordere d By: Alfredo Phipps on 02-27-2025 RBC (Bld) [#/Vol] 4.35 10*6/uL Low 4.6-6.2 [facility] Serum creatinine measurement (mass/volume)Ordered By: Alfredo Phipps on 02-27-2025 Creatinine [Mass/Vol] 2.32 mg/dL High 0.70-1.20 [facility] Serum globulin measurementOr dered By: Alfredo Phipps on 02-27-2025 Globulin (S) [Mass/Vol] 2.4 g/dL 2.2-4.2 [facility] Serum glucose measurement (m ass/volume)Ordered By: Alfredo Phipps on 02-27-2025 Glucose [Mass/Vol] 134 mg/dL High 70-99 [facility] Serum or plasma alanine sesay otransferase (ALT) measurementOrdered By: Alfredo Phipps on 02-27-2025 ALT [Catalytic activity/Vol] 13 U/L <47 [facility] Serum or plasma albumin you urement (mass/volume)Ordered By: Alfredo Phipps on 02-27-2025 Albumin [Mass/Vol] 3.9 g/dL 3.4-4.8 [facility] Serum or plasma albumin/glob ulin mass ratioOrdered By: Alfredo Phipps on 02-27-2025 Albumin/Globulin [Mass ratio] 1.6 {ratio} 0.9-2.4 [facility] Serum or plasma alkaline hal sphatase measurementOrdered By: Alfredo Phipps on 02-27-2025 ALP [Catalytic activity/Vol] 66 U/L 40-129 [facility] Serum or plasma calcium you urement (mass/volume)Ordered By: Alfredo Phipps on 02-27-2025 Calcium [Mass/Vol] 9.8 mg/dL 7.6-11.0 [facility] Serum or plasma urea nitroge n measurement (mass/volume)Ordered By: Alfredo Phipps on 02-27-2025 Urea nitrogen [Mass/Vol] 29 mg/dL High 4-19 [facility] Sodium levelOrdered By: Raffi Phipps on 02-27-2025 Sodium [Moles/Vol] 138 mmol/L 133-145 [facility] Total proteinOrdered By: Jennifer Phipps on 02-27-2025 Protein [Mass/Vol] 6.2 g/dL 5.9-8.4 [facility] White blood cell (WBC) count Ordered By: Alfredo Phipps on 02-27-2025 WBC (Bld) [#/Vol] 20.6 10*3/uL High 4.4-11.0 [facility] Serum or plasma uric acid me asurement (mass/volume)Ordered By: Adam Ferraro on 02-25-2025 Urate [Mass/Vol] 6.3 mg/dL 3.5-7.2 [facility] Comment on above: The drugs N-Acetylcy steine and Metamizole may falsely depress this assay. Uric Acidon 02-25-2025 URIC 6.3 mg/dL Normal 3.5-7.2 [facility] Comment on above: Order Comment: 111.2 Result Comment: The drugs N-Acetylcysteine and Metamizole may falsely depress this assay. Performed By: #### L 500.4050, L501.9060, L100.0100, L501.2300 #### [facility] [address] [place], [address] Calculated very low density lipoprotein (VLDL) cholesterol measurementOrdered By: Alfredo Phipps on 02-11-2025 Calculated very low density lipoprotein (VLDL) cholesterol measurement 43 mg/dL High 5-40 [facility] VLDL Cholesterol 43 mg/dL High - [facility] LDL calc ser/plasOrdered By: Alfredo Phipps on 02-11-2025 Cholesterol in LDL [Mass/Vol] 67 mg/dL [facility] Comment on above: Rasxzwksce=343-362 m g/dL & Higher Ewtu=830 mg/dL or greater LDL Cholesterol, Calculated 67 mg/dL [facility] Comment on above: Bxjdbjdqau=571-455 m g/dL & Higher Eejk=925 mg/dL or greater Lipid Profileon 02-11-2025 CHOL:HDL 4.53 Normal [facility] Comment on above: Order Comment: 111.2 Performed By: #### L 500.4050, L501.9060, L100.0100, L501.2300 #### [facility] [address] [place], [address] Cholesterol [Mass/Vol] 141 mg/dL Normal <=200 [facility] Comment on above: Order Comment: 111.2 Result Comment: Chol esterol level, Desirable <200 mg/dL Borderline high cholesterol 200-239 mg/dL High cholesterol >=240 mg/dL Recommendations of the NCEP Adult Treatment Panel for the following risk-cutoff thresholds for the [place] population. Performed By: #### L 500.4050, L501.9060, L100.0100, L501.2300 #### [facility] [address] [place], [address] Cholesterol in HDL [Mass/Vol] 31 mg/dL Low [facility] Comment on above: Order Comment: 111.2 Result Comment: Fabienne onal Cholesterol Education Program (NCEP) guidelines: <40 mg/dL: Low HDL-cholesterol (major risk factor for CHD) >= 60 mg/dL: High HDL-cholesterol (negative risk factor for CHD) HDL-cholesterol is affected by a number of factors, e.g. smoking, exercise, hormones, sex and age. Performed By: #### L 500.4050, L501.9060, L100.0100, L501.2300 #### [facility] [address] [place], [address] Cholesterol in LDL [Mass/Vol] 67 mg/dL Normal [facility] Comment on above: Order Comment: 111.2 Result Comment: Bord ttmode=994-660 mg/dL Higher Vipy=360 mg/dL or greater Performed By: #### L 500.4050, L501.9060, L100.0100, L501.2300 #### [facility] [address] [place], [address] Cholesterol in VLDL [Mass/Vol] 43 mg/dL High 5-40 [facility] Comment on above: Order Comment: 111.2 Performed By: #### L 500.4050, L501.9060, L100.0100, L501.2300 #### [facility] [address] [place], [address] Triglyceride [Mass/Vol] 215 mg/dL High [facility] Comment on above: Order Comment: 111.2 Result Comment: The drugs N-Acetylcysteine and Metamizole may falsely depress this assay. Normal range: <150 mg/dL Borderline High: 150-199 mg/dL High: 200-499 mg/dL Very High: >500 mg/dL Performed By: #### L 500.4050, L501.9060, L100.0100, L501.2300 #### [facility] [address] [place], [address] Screening total cholesterol/ high density lipoprotein (HDL) cholesterol ratioOrdered By: Alfredo Phipps on 02-11-2025 Cholesterol.total/Choles terol in HDL [Mass ratio] 4.53 {ratio} [facility] Serum or plasma cholesterol in HDL measurement (mass/volume)Ordered By: Alfredo Phipps on 02-11-2025 Cholesterol in HDL [Mass/Vol] 31 mg/dL Low >40 [facility] Comment on above: National Cholesterol Education Program (NCEP) guidelines:<40 mg/dL: Low HDL-cholesterol (major risk factor for CHD)>= 60 mg/dL: High HDL-cholesterol (negative risk factor for CHD)HDL-cholesterol is affected by a number of factors, e.g. smoking, exercise, hormones, sex and age. Serum or plasma cholesterol measurement (mass/volume)Ordered By: Alfredo Phipps on 02-11-2025 Cholesterol [Mass/Vol] 141 mg/dL <201 [facility] Comment on above: Cholesterol level, D esirable <200 mg/dLBorderline high cholesterol 200-239 mg/dLHigh cholesterol >=240 mg/dLRecommendations of the NCEP Adult Treatment Panel for the following risk-cutoff thresholds for the [place] population. Triglycerides measurementOrd ered By: Alfredo Phipps on 02-11-2025 Triglyceride [Mass/Vol] 215 mg/dL High <199 [facility] Comment on above: The drugs N-Acetylcy steine and Metamizole may falsely depress this assay. Normal range: <150 mg/dLBorderline High: 150-199 mg/dLHigh: 200-499 mg/dLVery High: >500 mg/dL Hemoglobin A1con 02-06-2025 HbA1c (Bld) [Mass fraction] 5.8 % Normal <=5.6 [facility] Comment on above: Order Comment: 111.2 Performed By: #### L 500.4050, L501.9060, L100.0100, L501.2300 #### [facility] [address] [place], [place], [address] Hemoglobin A1c percentageOrd ered By: Alfredo Phipps on 02-06-2025 HbA1c (Bld) [Mass fraction] 5.8 % >5.7 [facility] Lithiumon 01-30-2025 LI 0.71 mmol/L Normal 0.60-1.20 [facility] Comment on above: Order Comment: 111.2 Performed By: #### L 500.4050, L501.9060, L100.0100, L501.2300 #### [facility] [address] [place], [place], [address] [place] levelOrdered By: Benoit Ferraro on 01-30-2025 [place] Level 0.71 mmol/L 0.60-1.20 [facility] Serum or plasma uric acid me asurement (mass/volume)Ordered By: Adam Ferraro on 01-25-2025 Urate [Mass/Vol] 6.2 mg/dL 3.5-7.2 [facility] Comment on above: The drugs N-Acetylcy steine and Metamizole may falsely depress this assay. Uric Acidon 01-25-2025 URIC 6.2 mg/dL Normal 3.5-7.2 [facility] Comment on above: Order Comment: 111.2 Result Comment: The drugs N-Acetylcysteine and Metamizole may falsely depress this assay. Performed By: #### L 500.4050, L501.9060, L100.0100, L501.2300 #### [facility] [address] [place], [address] Microalb:Creat Ratio,Random URon 01-03-2025 Creatinine [Mass/Vol] 104.00 mg/dL Normal NO RAN GE EST. [facility] Comment on above: Performed By: #### L 500.4050, L501.9060, L100.0100, L501.2300 #### [facility] [address] [place], [address] MALB:CRE TNP Normal <30 mg/g CRE [facility] Comment on above: Performed By: #### L 500.4050, L501.9060, L100.0100, L501.2300 #### [facility] [address] [place], [address] MICROALBUMIN,UR < 5.0 Normal NO RANGE EST. [facility] Comment on above: Performed By: #### L 500.4050, L501.9060, L100.0100, L501.2300 #### [facility] [address] [place], [address] Random urine microalbumin me asurementOrdered By: Adam Ferraro on 01-03-2025 Urine Random Microalbumin < 5.0 mg/L NO RANGE EST. [facility] Urine albumin/creatinine rat io for detection of microalbuminuriaOrdered By: Adam Ferraro on 01-03-2025 Urine Microalbumin/Creatinine Ratio TNP [facility] Comment on above: Test not performed Urine creatinine measurement (mass/volume)Ordered By: Adam Ferraro on 01-03-2025 Creatinine (U) [Mass/Vol] 104.00 mg/dL NO RANGE EST. [facility] Absolute lymphocyte countOrd ered By: Adam Jasmine on 01-02-2025 Lymphocytes Auto (Unsp spec) [#/Vol] 2.41 10*3/uL 0.83-4.51 [facility] Absolute neutrophil countOrd ered By: Adam Muñozmele on 01-02-2025 Neutrophils (Bld) [#/Vol] 5.6 10*3/uL 2.0-7.7 [facility] Albumin to globulin ratioOrd ered By: Adam Muñozmele on 01-02-2025 Albumin/Globulin [Mass ratio] 1.0 {ratio} 0.9-2.4 [facility] Automated lymphocyte count a s percentage of total leukocytesOrdered By: Adam Ferraro on 01-02-2025 Lymphocytes/100 WBC Auto (Unsp spec) 25.1 % [facility] Basophil percentageOrdered B y: Adam Ferraro on 01-02-2025 Basophils/100 WBC (Bld) 1.1 % High 0-1 [facility] Bilirubin, totalOrdered By: Adam Ferraro on 01-02-2025 Bilirubin [Mass/Vol] 0.30 mg/dL 0.20-1.[address] [facility] Comment on above: For patients on eltr ombopag therapy, use of Dimension Percy TBIL is not recommended. Blood urea nitrogen (BUN)/cr eatinine ratioOrdered By: Adam Ferraro on 01-02-2025 Urea nitrogen/Creatinine [Mass ratio] 12.6 mg/mg 10-20 [facility] CBC W/Diff, Automatedon 12-15 Absolute Lymph 2.41 X10 3/uL Normal 0.83-4.51 [facility] Comment on above: Order Comment: 111.2 20250423 Performed By: #### L 500.4050, L501.9060, L100.0100, L501.2300 #### [facility] [address] [place], [address] Absolute Neut 5.6 X10 3/uL Normal 2.0-7.7 [facility] Comment on above: Order Comment: 111.2 20250423 Performed By: #### L 500.4050, L501.9060, L100.0100, L501.2300 #### [facility] [address] [place], [address] Basophils/100 WBC (Bld) 1.1 % High 0-1 [facility] Comment on above: Order Comment: 111.2 20250423 Performed By: #### L 500.4050, L501.9060, L100.0100, L501.2300 #### [facility] [address] [place], [address] Eosinophils/100 WBC (Bld) 5.3 % High 0-5 [facility] Comment on above: Order Comment: 111.2 20250423 Performed By: #### L 500.4050, L501.9060, L100.0100, L501.2300 #### [facility] [address] [place], [address] Erythrocyte distribution width (RBC) [Ratio] 12.9 % Normal 11.6-14.6 [facility] Comment on above: Order Comment: 111.2 20250423 Performed By: #### L 500.4050, L501.9060, L100.0100, L501.2300 #### [facility] [address] [place], [address] Hematocrit (Bld) [Volume fraction] 40.5 % Normal 40-54 [facility] Comment on above: Order Comment: 111.2 20250423 Performed By: #### L 500.4050, L501.9060, L100.0100, L501.2300 #### [facility] [address] [place], [address] Hemoglobin (Bld) [Mass/Vol] 13.4 g/dL Normal 13.0-16.5 [facility] Comment on above: Order Comment: 111.2 20250423 Performed By: #### L 500.4050, L501.9060, L100.0100, L501.2300 #### [facility] [address] [place], [address] IG% 0.500 Normal 0.0-0.9 [facility] Comment on above: Order Comment: 111.2 20250423 Result Comment: IG% - Immature Granulocytes (promyelocytes, myelocytes and metamyelocytes) > 1% indicates that a LEFT SHIFT is Present. Performed By: #### L 500.4050, L501.9060, L100.0100, L501.2300 #### [facility] [address] [place], [address] Lymphocytes/100 WBC (Bld) 25.1 % Normal 19-41 [facility] Comment on above: Order Comment: 111.2 20250423 Performed By: #### L 500.4050, L501.9060, L100.0100, L501.2300 #### [facility] [address] [place], [address] MCH (RBC) [Entitic mass] 30.0 pg Normal 27.0-32.0 [facility] Comment on above: Order Comment: 111.2 20250423 Performed By: #### L 500.4050, L501.9060, L100.0100, L501.2300 #### [facility] [address] [place], [address] MCHC (RBC) [Mass/Vol] 33.1 g/dL Normal 32-36 [facility] Comment on above: Order Comment: 111.2 20250423 Performed By: #### L 500.4050, L501.9060, L100.0100, L501.2300 #### [facility] [address] [place], [address] MCV (RBC) [Entitic vol] 90.8 fL Normal 80-94 [facility] Comment on above: Order Comment: 111.2 20250423 Performed By: #### L 500.4050, L501.9060, L100.0100, L501.2300 #### [facility] [address] [place], [address] Monocytes/100 WBC (Bld) 9.4 % Normal 0-10 [facility] Comment on above: Order Comment: 111.20250423 Performed By: #### L 500.4050, L501.9060, L100.0100, L501.2300 #### [facility] [address] [place], [address] Neutrophils/100 WBC (Bld) 58.6 % Normal 47-70 [facility] Comment on above: Order Comment: 111.20250423 Performed By: #### L 500.4050, L501.9060, L100.0100, L501.2300 #### [facility] [address] [place], [address] Nucleated RBC (Bld) [#/Vol] 0 10*3/uL Normal 0-5 [facility] Comment on above: Order Comment: 111.20250423 Performed By: #### L 500.4050, L501.9060, L100.0100, L501.2300 #### [facility] [address] [place], [address] Platelet mean volume (Bld) [Entitic vol] 9.5 fL Normal 6.2-12.0 [facility] Comment on above: Order Comment: 111.2 20250423 Performed By: #### L 500.4050, L501.9060, L100.0100, L501.2300 #### [facility] [address] [place], [address] Platelets (Bld) [#/Vol] 247 10*3/uL Normal 150-450 [facility] Comment on above: Order Comment: 111.2 20250423 Performed By: #### L 500.4050, L501.9060, L100.0100, L501.2300 #### [facility] [address] [place], [address] RBC (Bld) [#/Vol] 4.46 10*6/uL Low 4.6-6.2 [facility] Comment on above: Order Comment: 111.2 20250423 Performed By: #### L 500.4050, L501.9060, L100.0100, L501.2300 #### [facility] [address] [place], [address] RDW SD 41.9 fl Normal 35.1-43.9 [facility] Comment on above: Order Comment: 111.2 20250423 Performed By: #### L 500.4050, L501.9060, L100.0100, L501.2300 #### [facility] [address] [place], [address] WBC (Bld) [#/Vol] 9.6 10*3/uL Normal 4.4-11.0 [facility] [facility] Comment on above: Order Comment: 111.2 20250423 Performed By: #### L 500.4050, L501.9060, L100.0100, L501.2300 #### [facility] [address] [place], [address] Carbon dioxide measurementOr dered By: Adam Ferraro on 01-02-2025 CO2 [Moles/Vol] 25.0 mmol/L 21.0-32.0 [facility] Chloride measurementOrdered By: Adam Ferraro on 01-02-2025 Chloride [Moles/Vol] 109 mmol/L High 98-[address] [facility] Comprehensive Metabolic Prof ilon 01-02-2025 Albumin [Mass/Vol] 3.1 g/dL Low 3.2-5.0 [facility] Comment on above: Order Comment: 111.2 20250423 Performed By: #### L 500.4050, L501.9060, L100.0100, L501.2300 #### [facility] [address] [place], [address] Albumin/Globulin [Mass ratio] 1.0 {ratio} Normal 0.9-2.4 [facility] Comment on above: Order Comment: 111.20250423 Performed By: #### L 500.4050, L501.9060, L100.0100, L501.2300 #### [facility] [address] [place], [address] ALK P 81 U/L Normal 45-117 [facility] Comment on above: Order Comment: 111.20250423 Performed By: #### L 500.4050, L501.9060, L100.0100, L501.2300 #### [facility] [address] [place], [address] ALT [Catalytic activity/Vol] 17 U/L Normal 16-61 [facility] Comment on above: Order Comment: 111.20250423 Performed By: #### L 500.4050, L501.9060, L100.0100, L501.2300 #### [facility] [address] [place], [address] AST [Catalytic activity/Vol] 12 U/L Low 15-37 [facility] Comment on above: Order Comment: 111.2 20250423 Performed By: #### L 500.4050, L501.9060, L100.0100, L501.2300 #### [facility] [address] [place], [address] Bilirubin [Mass/Vol] 0.30 mg/dL Normal 0.20-1.[address] [facility] Comment on above: Order Comment: 111.2 20250423 Result Comment: For patients on eltrombopag therapy, use of Dimension Percy TBIL is not recommended. Performed By: #### L 500.4050, L501.9060, L100.0100, L501.2300 #### [facility] [address] [place], [address] BUN/CRE 12.6 RATIO Normal 10-20 [facility] Comment on above: Order Comment: 111.2 20250423 Performed By: #### L 500.4050, L501.9060, L100.0100, L501.2300 #### [facility] [address] [place], [address] CA,Total 9.4 mg/dL Normal 8.5-10.1 [facility] Comment on above: Order Comment: 111.2 20250423 Performed By: #### L 500.4050, L501.9060, L100.0100, L501.2300 #### [facility] [address] [place], [address] Chloride [Moles/Vol] 109 mmol/L High 98-[address] [facility] Comment on above: Order Comment: 111.2 20250423 Performed By: #### L 500.4050, L501.9060, L100.0100, L501.2300 #### [facility] [address] [place], [address] CO2 [Moles/Vol] 25.0 mmol/L Normal 21.0-32.0 [facility] Comment on above: Order Comment: 111.2 20250423 Performed By: #### L 500.4050, L501.9060, L100.0100, L501.2300 #### [facility] [address] [place], [address] Creatinine [Mass/Vol] 2.14 mg/dL High 0.70-1.30 [facility] Comment on above: Order Comment: 111.2 20250423 Result Comment: The validity of the calculated GFR GFRAA in patients over 70 years has not been determined. Clinical correlation is essential. Performed By: #### L 500.4050, L501.9060, L100.0100, L501.2300 #### [facility] [address] [place], [address] EST GFR - AA 41 mL/min Low >60 [facility] Comment on above: Order Comment: 111.2 20250423 Result Comment: Afri can Azerbaijani GFR Calc Performed By: #### L 500.4050, L501.9060, L100.0100, L501.2300 #### [facility] [address] [place], [address] GAP 7 Normal 5-15 [facility] Comment on above: Order Comment: 111.20250423 Performed By: #### L 500.4050, L501.9060, L100.0100, L501.2300 #### [facility] [address] [place], [address] GFR/1.73 sq M.predicted among non-blacks MDRD (S/P/Bld) [Vol rate/Area] 34 mL/min/{1.73_m2} Low >60 [facility] Comment on above: Order Comment: 111.20250423 Result Comment: Non- GFR Calc Performed By: #### L 500.4050, L501.9060, L100.0100, L501.2300 #### [facility] [address] [place], [address] Globulin (S) [Mass/Vol] 3.1 g/dL Normal 2.2-4.2 [facility] Comment on above: Order Comment: 111.20250423 Performed By: #### L 500.4050, L501.9060, L100.0100, L501.2300 #### [facility] [address] [place], [address] Glucose [Mass/Vol] 115 mg/dL High 74-106 [facility] Comment on above: Order Comment: 111.2 20250423 Result Comment: Fast ing Glucose result from 100 to 125 mg/dL suggests IMPAIRED HOMEOSTASIS per A.D.A. criteria. Performed By: #### L 500.4050, L501.9060, L100.0100, L501.2300 #### [facility] [address] [place], [address] Potassium [Moles/Vol] 4.1 mmol/L Normal 3.5-5.1 [facility] Comment on above: Order Comment: 111.2 20250423 Performed By: #### L 500.4050, L501.9060, L100.0100, L501.2300 #### [facility] [address] [place], [address] Sodium [Moles/Vol] 141 mmol/L Normal 136-145 [facility] Comment on above: Order Comment: 111.2 20250423 Performed By: #### L 500.4050, L501.9060, L100.0100, L501.2300 #### [facility] [address] [place], [address] T PROT 6.2 g/dL Low 6.4-8.2 [facility] Comment on above: Order Comment: 111.2 20250423 Performed By: #### L 500.4050, L501.9060, L100.0100, L501.2300 #### [facility] [address] [place], [address] Urea nitrogen [Mass/Vol] 27 mg/dL High 7-18 [facility] Comment on above: Order Comment: 111.2 20250423 Performed By: #### L 500.4050, L501.9060, L100.0100, L501.2300 #### [facility] [place], [address] Eosinophil percentageOrdered By: Adam Ferraro on 01-02-2025 Eosinophils/100 WBC (Bld) 5.3 % High 0-5 [facility] Erythrocyte distribution wid th ratioOrdered By: Adam Ferraro on 01-02-2025 Erythrocyte distribution width (RBC) [Ratio] 12.9 % 11.6-14.6 [facility] Erythrocyte distribution wid th standard deviationOrdered By: Adam Ferraro on 01-02-2025 Erythrocyte distribution width (RBC) [Entitic vol] 41.9 fL 35.1-43.9 [facility] Erythrocyte distribution width (RBC) [Ratio] 41.9 fl 35.1-43.9 [facility] Estimated glomerular filtrat ion rate (GFR) AmericanOrdered By: Adam Ferraro on 01-02-2025 Estimated GFR (MDRD) Amer 41 mL/min Low >60 [facility] Comment on above: GFR Calc Glomerular filtration rate ( GFR) estimationOrdered By: Adam Ferraro on 01-02-2025 Estimated GFR (MDRD) Non-Af Amer 34 mL/min Low >60 [facility] Comment on above: Non- GFR Calc GFR/1.73 sq M.predicted among non-blacks MDRD (S/P/Bld) [Vol rate/Area] 34 mL/min/{1.73_m2} Low >60 [facility] Comment on above: Non- GFR Calc Glucose measurementOrdered B y: Adam Ferraro on 01-02-2025 Glucose [Mass/Vol] 115 mg/dL High 74-106 [facility] Comment on above: Fasting Glucose resu lt from 100 to 125 mg/dL suggests IMPAIRED HOMEOSTASIS per A.D.A. criteria. Hematocrit Auto (Bld) [Volum e fraction]Ordered By: Adam Ferraro on 01-02-2025 Hematocrit (Bld) [Volume fraction] 40.5 % 40-54 [facility] Hemoglobin measurementOrdere d By: Adam Ferraro on 01-02-2025 Hemoglobin (Bld) [Mass/Vol] 13.4 g/dL 13.0-16.5 [facility] Immature granulocytes/100 WB C Auto (Bld)Ordered By: Adam Ferraro on 01-02-2025 Immature granulocytes/100 WBC (Bld) 0.500 % 0.0-0.9 [facility] Comment on above: IG% - Immature Granu locytes (promyelocytes, myelocytes and metamyelocytes) > 1% indicates that a LEFT SHIFT is Present. Laboratory - Chemistry and C hemistry - challengeOrdered By: Adam Ferraro on 01-02-2025 AST [Catalytic activity/Vol] 12 U/L Low 15-37 [facility] Lithiumon 01-02-2025 LI 0.60 mmol/L Normal 0.60-1.20 [facility] Comment on above: Order Comment: 111.2 [id number] Performed By: #### L 500.4050, L501.9060, L100.0100, L501.2300 #### [facility] [address] [place], [address] [place] levelOrdered By: Benoit Ferraro on 01-02-2025 [place] Level 0.60 mmol/L 0.60-1.20 [facility] Lymphocytes Auto (Unsp spec) [#/Vol]Ordered By: Adam Ferraro on 01-02-2025 Lymphocytes (Bld) [#/Vol] 2.41 10*3/uL 0.83-4.51 [facility] Lymphocytes/100 WBC Auto (Un sp spec)Ordered By: Adam Ferraro on 01-02-2025 Lymphocytes/100 WBC (Bld) 25.1 % 19-41 [facility] MCV (mean corpuscular volume ) determinationOrdered By: Adam Ferraro on 01-02-2025 MCV (RBC) [Entitic vol] 90.8 fL 80-94 [facility] Mean corpuscular hemoglobin (MCH) determinationOrdered By: Adam Ferraro on 01-02-2025 MCH (RBC) [Entitic mass] 30.0 pg 27.0-32.0 [facility] Mean corpuscular hemoglobin concentration (MCHC) determinationOrdered By: Adam Ferraro on 01-02-2025 MCHC (RBC) [Mass/Vol] 33.1 g/dL 32-36 [facility] Mean platelet volume determi nationOrdered By: Adam Ferraro on 01-02-2025 Platelet mean volume (Bld) [Entitic vol] 9.5 fL 6.2-12.0 [facility] Monocyte percentageOrdered B y: Adam Ferraro on 01-02-2025 Monocytes/100 WBC (Bld) 9.4 % 0-10 [facility] Neutrophil percentageOrdered By: Adam Ferraro on 01-02-2025 Neutrophils/100 WBC (Bld) 58.6 % 47-70 [facility] Nucleated red blood cell per centageOrdered By: Adam Ferraro on 01-02-2025 Nucleated RBC/100 WBC (Bld) [Ratio] 0 % 0-5 [facility] Phosphoruson 01-02-2025 Phosphate [Mass/Vol] 4.7 mg/dL Normal 2.5-4.[address] [facility] Comment on above: Order Comment: 111.2 [id number] Performed By: #### L 500.4050, L501.9060, L100.0100, L501.2300 #### [facility] [address] [facility] [place], [address] Phosphorus measurementOrdere d By: Adam Ferraro on 01-02-2025 Phosphorus Level 4.7 mg/dL 2.5-4.9 [facility] Platelet countOrdered By: Sabino Ferraro on 01-02-2025 Platelets (Bld) [#/Vol] 247 10*3/uL 150-450 [facility] Potassium measurementOrdered By: Adam Ferraro on 01-02-2025 Potassium [Moles/Vol] 4.1 mmol/L 3.5-5.1 [facility] RBC Auto (Bld) [#/Vol]Ordere d By: Adam Ferraro on 01-02-2025 RBC (Bld) [#/Vol] 4.46 10*6/uL Low 4.6-6.2 [facility] Serum anion gap measurementO rdered By: Adam Ferraro on 01-02-2025 Anion gap [Moles/Vol] 7 mmol/L 5-15 [facility] Serum globulin measurementOr dered By: Adam Ferraro on 01-02-2025 Globulin (S) [Mass/Vol] 3.1 g/dL 2.2-4.2 [facility] Serum or plasma alanine sesay otransferase (ALT) measurementOrdered By: Adam Ferraro on 01-02-2025 ALT [Catalytic activity/Vol] 17 U/L 16-61 [facility] Serum or plasma albumin you urement (mass/volume)Ordered By: Adam Ferraro on 01-02-2025 Albumin [Mass/Vol] 3.1 g/dL Low 3.2-5.0 [facility] Serum or plasma alkaline hal sphatase measurementOrdered By: Adam Ferraro on 01-02-2025 ALP [Catalytic activity/Vol] 81 U/L 45-117 [facility] Serum or plasma calcium you urement (mass/volume)Ordered By: Adam Ferraro on 01-02-2025 Calcium [Mass/Vol] 9.4 mg/dL 8.5-10.1 [facility] Serum or plasma creatinine m easurement (mass/volume)Ordered By: Adam Ferraro on 01-02-2025 Creatinine [Mass/Vol] 2.14 mg/dL High 0.70-1.30 [facility] Comment on above: The validity of the calculated GFR & GFRAA in patients over 70 years has not been determined. Clinical correlation is essential. Serum or plasma urea nitroge n measurement (mass/volume)Ordered By: Adam Ferraro on 01-02-2025 Urea nitrogen [Mass/Vol] 27 mg/dL High 7-18 [facility] Sodium levelOrdered By: Spike Ferraro on 01-02-2025 Sodium [Moles/Vol] 141 mmol/L 136-145 [facility] Total proteinOrdered By: Benoit Ferraro on 01-02-2025 Protein [Mass/Vol] 6.2 g/dL Low 6.4-8.2 [facility] White blood cell (WBC) count Ordered By: Adam Ferraro on 01-02-2025 WBC (Bld) [#/Vol] 9.6 10*3/uL 4.4-11.0 [facility] Albumin to globulin ratioOrd ered By: Adam Ferraro on 12-28-2024 Albumin/Globulin [Mass ratio] 0.9 {ratio} 0.9-2.4 [facility] Bilirubin, totalOrdered By: Adam Ferraro on 12-28-2024 Bilirubin [Mass/Vol] 0.30 mg/dL 0.20-1.[address] [facility] Comment on above: For patients on eltr ombopag therapy, use of Dimension Percy TBIL is not recommended. Blood urea nitrogen (BUN)/cr eatinine ratioOrdered By: Adam Ferraro on 12-28-2024 Urea nitrogen/Creatinine [Mass ratio] 10.0 mg/mg 10-20 [facility] CBC-Complete Blood Cnt No Di ffon 12-28-2024 Erythrocyte distribution width (RBC) [Ratio] 13.1 % Normal 11.6-14.6 [facility] Comment on above: Order Comment: 111.20250423 Performed By: #### L 500.4050, L501.9060, L100.0100, L501.2300 #### [facility] [address] [place], [address] Hematocrit (Bld) [Volume fraction] 40.4 % Normal 40-54 [facility] Comment on above: Order Comment: 111.2 20250423 Performed By: #### L 500.4050, L501.9060, L100.0100, L501.2300 #### [facility] [address] [place], [address] Hemoglobin (Bld) [Mass/Vol] 13.2 g/dL Normal 13.0-16.5 [facility] Comment on above: Order Comment: 111.20250423 Performed By: #### L 500.4050, L501.9060, L100.0100, L501.2300 #### [facility] [address] [place], [address] MCH (RBC) [Entitic mass] 29.7 pg Normal 27.0-32.0 [facility] Comment on above: Order Comment: 111.20250423 Performed By: #### L 500.4050, L501.9060, L100.0100, L501.2300 #### [facility] [address] [place], [address] MCHC (RBC) [Mass/Vol] 32.7 g/dL Normal 32-36 [facility] Comment on above: Order Comment: 111.2 20250423 Performed By: #### L 500.4050, L501.9060, L100.0100, L501.2300 #### [facility] [address] [place], [address] MCV (RBC) [Entitic vol] 91.0 fL Normal 80-94 [facility] Comment on above: Order Comment: 111.2 20250423 Performed By: #### L 500.4050, L501.9060, L100.0100, L501.2300 #### [facility] [address] [place], [address] Platelet mean volume (Bld) [Entitic vol] 9.3 fL Normal 6.2-12.0 [facility] Comment on above: Order Comment: 111.2 20250423 Performed By: #### L 500.4050, L501.9060, L100.0100, L501.2300 #### [facility] [address] [place], [address] Platelets (Bld) [#/Vol] 248 10*3/uL Normal 150-450 [facility] Comment on above: Order Comment: 111.2 20250423 Performed By: #### L 500.4050, L501.9060, L100.0100, L501.2300 #### [facility] [address] [place], [address] RBC (Bld) [#/Vol] 4.44 10*6/uL Low 4.6-6.2 [facility] Comment on above: Order Comment: 111.2 20250423 Performed By: #### L 500.4050, L501.9060, L100.0100, L501.2300 #### [facility] [address] [place], [address] RDW SD 42.4 fl Normal 35.1-43.9 [facility] Comment on above: Order Comment: 111.20250423 Performed By: #### L 500.4050, L501.9060, L100.0100, L501.2300 #### [facility] [address] [place], [address] WBC (Bld) [#/Vol] 10.5 10*3/uL Normal 4.4-11.0 [facility] Comment on above: Order Comment: 111.20250423 Performed By: #### L 500.4050, L501.9060, L100.0100, L501.2300 #### [facility] [address] [place], [address] Carbon dioxide measurementOr dered By: Adam Ferraro on 12-28-2024 CO2 [Moles/Vol] 25.0 mmol/L 21.0-32.0 [facility] Chloride measurementOrdered By: Adam Ferraro on 12-28-2024 Chloride [Moles/Vol] 110 mmol/L High 98-[address] [facility] Comprehensive Metabolic Prof ilon 12-28-2024 Albumin [Mass/Vol] 3.0 g/dL Low 3.2-5.0 [facility] Comment on above: Order Comment: 111.20250423 Performed By: #### L 500.4050, L501.9060, L100.0100, L501.2300 #### [facility] [address] [place], [address] Albumin/Globulin [Mass ratio] 0.9 {ratio} Normal 0.9-2.4 [facility] Comment on above: Order Comment: 111.20250423 Performed By: #### L 500.4050, L501.9060, L100.0100, L501.2300 #### [facility] [address] [place], [address] ALK P 81 U/L Normal 45-117 [facility] Comment on above: Order Comment: 111.2 20250423 Performed By: #### L 500.4050, L501.9060, L100.0100, L501.2300 #### [facility] [address] [place], [address] ALT [Catalytic activity/Vol] 20 U/L Normal 16-61 [facility] Comment on above: Order Comment: 111.2 20250423 Performed By: #### L 500.4050, L501.9060, L100.0100, L501.2300 #### [facility] [address] [place], [address] AST [Catalytic activity/Vol] 11 U/L Low 15-37 [facility] Comment on above: Order Comment: 111.2 20250423 Performed By: #### L 500.4050, L501.9060, L100.0100, L501.2300 #### [facility] [address] [place], [address] Bilirubin [Mass/Vol] 0.30 mg/dL Normal 0.20-1.[address] [facility] Comment on above: Order Comment: 111.2 20250423 Result Comment: For patients on eltrombopag therapy, use of Dimension Percy TBIL is not recommended. Performed By: #### L 500.4050, L501.9060, L100.0100, L501.2300 #### [facility] [address] [place], [address] BUN/CRE 10.0 RATIO Normal 10-20 [facility] Comment on above: Order Comment: 111.2 20250423 Performed By: #### L 500.4050, L501.9060, L100.0100, L501.2300 #### [facility] [address] [place], [address] CA,Total 9.3 mg/dL Normal 8.5-10.1 [facility] Comment on above: Order Comment: 111.2 20250423 Performed By: #### L 500.4050, L501.9060, L100.0100, L501.2300 #### [facility] [address] [place], [address] Chloride [Moles/Vol] 110 mmol/L High 98-[address] [facility] Comment on above: Order Comment: 111.2 20250423 Performed By: #### L 500.4050, L501.9060, L100.0100, L501.2300 #### [facility] [address] [place], [address] CO2 [Moles/Vol] 25.0 mmol/L Normal 21.0-32.0 [facility] Comment on above: Order Comment: 111.2 20250423 Performed By: #### L 500.4050, L501.9060, L100.0100, L501.2300 #### [facility] [address] [place], [address] Creatinine [Mass/Vol] 2.09 mg/dL High 0.70-1.30 [facility] Comment on above: Order Comment: 111.2 20250423 Result Comment: The validity of the calculated GFR GFRAA in patients over 70 years has not been determined. Clinical correlation is essential. Performed By: #### L 500.4050, L501.9060, L100.0100, L501.2300 #### [facility] [address] [place], [address] EST GFR - AA 42 mL/min Low >60 [facility] Comment on above: Order Comment: 111.2 20250423 Result Comment: Afri can Azerbaijani GFR Calc Performed By: #### L 500.4050, L501.9060, L100.0100, L501.2300 #### [facility] [address] [place], [address] GAP 6 Normal 5-15 [facility] Comment on above: Order Comment: 111.2 20250423 Performed By: #### L 500.4050, L501.9060, L100.0100, L501.2300 #### [facility] [address] [place], [address] GFR/1.73 sq M.predicted among non-blacks MDRD (S/P/Bld) [Vol rate/Area] 34 mL/min/{1.73_m2} Low >60 [facility] Comment on above: Order Comment: 111.2 20250423 Result Comment: Non- GFR Calc Performed By: #### L 500.4050, L501.9060, L100.0100, L501.2300 #### [facility] [address] [place], [address] Globulin (S) [Mass/Vol] 3.4 g/dL Normal 2.2-4.2 [facility] Comment on above: Order Comment: 111.2 20250423 Performed By: #### L 500.4050, L501.9060, L100.0100, L501.2300 #### [facility] [address] [place], [address] Glucose [Mass/Vol] 119 mg/dL High 74-106 [facility] Comment on above: Order Comment: 111.2 20250423 Result Comment: Fast ing Glucose result from 100 to 125 mg/dL suggests IMPAIRED HOMEOSTASIS per A.D.A. criteria. Performed By: #### L 500.4050, L501.9060, L100.0100, L501.2300 #### [facility] [address] [place], [address] Potassium [Moles/Vol] 4.3 mmol/L Normal 3.5-5.1 [facility] Comment on above: Order Comment: 111.2 20250423 Performed By: #### L 500.4050, L501.9060, L100.0100, L501.2300 #### [facility] [address] [place], [address] Sodium [Moles/Vol] 141 mmol/L Normal 136-145 [facility] Comment on above: Order Comment: 111.2 20250423 Performed By: #### L 500.4050, L501.9060, L100.0100, L501.2300 #### [facility] [address] [place], [address] T PROT 6.4 g/dL Normal 6.4-8.2 [facility] Comment on above: Order Comment: 111.2 20250423 Performed By: #### L 500.4050, L501.9060, L100.0100, L501.2300 #### [facility] [address] [place], [address] Urea nitrogen [Mass/Vol] 21 mg/dL High 7-18 [facility] Comment on above: Order Comment: 111.2 20250423 Performed By: #### L 500.4050, L501.9060, L100.0100, L501.2300 #### [facility] [address] [place], [address] Erythrocyte distribution wid th ratioOrdered By: Adam Ferraro on 12-28-2024 Erythrocyte distribution width (RBC) [Ratio] 13.1 % 11.6-14.6 [facility] Erythrocyte distribution wid th standard deviationOrdered By: Adam Ferraro on 12-28-2024 Erythrocyte distribution width (RBC) [Entitic vol] 42.4 fL 35.1-43.9 [facility] Erythrocyte distribution width (RBC) [Ratio] 42.4 fl 35.1-43.9 [facility] Estimated glomerular filtrat ion rate (GFR) AmericanOrdered By: Adam Ferraro on 12-28-2024 Estimated GFR (MDRD) Amer 42 mL/min Low >60 [facility] Comment on above: GFR Calc Glomerular filtration rate ( GFR) estimationOrdered By: Adam Ferraro on 12-28-2024 Estimated GFR (MDRD) Non-Af Amer 34 mL/min Low >60 [facility] Comment on above: Non- GFR Calc GFR/1.73 sq M.predicted among non-blacks MDRD (S/P/Bld) [Vol rate/Area] 34 mL/min/{1.73_m2} Low >60 [facility] Comment on above: Non- GFR Calc Glucose measurementOrdered B y: Adam Ferraro on 12-28-2024 Glucose [Mass/Vol] 119 mg/dL High 74-106 [facility] Comment on above: Fasting Glucose resu lt from 100 to 125 mg/dL suggests IMPAIRED HOMEOSTASIS per A.D.A. criteria. Hematocrit Auto (Bld) [Volum e fraction]Ordered By: Adam Ferraro on 12-28-2024 Hematocrit (Bld) [Volume fraction] 40.4 % 40-54 [facility] Hemoglobin measurementOrdere d By: Adam Ferraro on 12-28-2024 Hemoglobin (Bld) [Mass/Vol] 13.2 g/dL 13.0-16.5 [facility] Laboratory - Chemistry and C hemistry - challengeOrdered By: Adam Ferraro on 12-28-2024 AST [Catalytic activity/Vol] 11 U/L Low 15-37 [facility] MCV (mean corpuscular volume ) determinationOrdered By: Adam Ferraro on 12-28-2024 MCV (RBC) [Entitic vol] 91.0 fL 80-94 [facility] Mean corpuscular hemoglobin (MCH) determinationOrdered By: Adam Ferraro on 12-28-2024 MCH (RBC) [Entitic mass] 29.7 pg 27.0-32.0 [facility] Mean corpuscular hemoglobin concentration (MCHC) determinationOrdered By: Adam Ferraro on 12-28-2024 MCHC (RBC) [Mass/Vol] 32.7 g/dL 32-36 [facility] Mean platelet volume determi nationOrdered By: Adam Ferraro on 12-28-2024 Platelet mean volume (Bld) [Entitic vol] 9.3 fL 6.2-12.0 [facility] Platelet countOrdered By: Sabino Ferraro on 12-28-2024 Platelets (Bld) [#/Vol] 248 10*3/uL 150-450 [facility] Potassium measurementOrdered By: Adam Ferraro on 12-28-2024 Potassium [Moles/Vol] 4.3 mmol/L 3.5-5.1 [facility] RBC Auto (Bld) [#/Vol]Ordere d By: Adam Ferrrao on 12-28-2024 RBC (Bld) [#/Vol] 4.44 10*6/uL Low 4.6-6.2 [facility] Serum anion gap measurementO rdered By: Adam Ferraro on 12-28-2024 Anion gap [Moles/Vol] 6 mmol/L 5-15 [facility] Serum globulin measurementOr dered By: Adam Ferraro on 12-28-2024 Globulin (S) [Mass/Vol] 3.4 g/dL 2.2-4.2 [facility] Serum or plasma alanine sesay otransferase (ALT) measurementOrdered By: Adam Ferraro on 12-28-2024 ALT [Catalytic activity/Vol] 20 U/L 16-61 [facility] Serum or plasma albumin you urement (mass/volume)Ordered By: Adam Ferraro on 12-28-2024 Albumin [Mass/Vol] 3.0 g/dL Low 3.2-5.0 [facility] Serum or plasma alkaline hal sphatase measurementOrdered By: Adam Ferraro on 12-28-2024 ALP [Catalytic activity/Vol] 81 U/L 45-117 [facility] Serum or plasma calcium you urement (mass/volume)Ordered By: Adam Ferraro on 12-28-2024 Calcium [Mass/Vol] 9.3 mg/dL 8.5-10.1 [facility] Serum or plasma creatinine m easurement (mass/volume)Ordered By: Adam Ferraro on 12-28-2024 Creatinine [Mass/Vol] 2.09 mg/dL High 0.70-1.30 [facility] Comment on above: The validity of the calculated GFR & GFRAA in patients over 70 years has not been determined. Clinical correlation is essential. Serum or plasma urea nitroge n measurement (mass/volume)Ordered By: Adam Ferraro on 12-28-2024 Urea nitrogen [Mass/Vol] 21 mg/dL High 7-18 [facility] Serum or plasma uric acid me asurement (mass/volume)Ordered By: Adam Ferraro on 12-28-2024 Urate [Mass/Vol] 5.8 mg/dL 3.5-7.2 [facility] Comment on above: The drugs N-Acetylcy steine and Metamizole may falsely depress this assay. Sodium levelOrdered By: Spike Ferraro on 12-28-2024 Sodium [Moles/Vol] 141 mmol/L 136-145 [facility] Total proteinOrdered By: Benoit Ferraro on 12-28-2024 Protein [Mass/Vol] 6.4 g/dL 6.4-8.2 [facility] Uric Acidon 12-28-2024 URIC 5.8 mg/dL Normal 3.5-7.2 [facility] Comment on above: Order Comment: 111.2 [id number] Result Comment: The drugs N-Acetylcysteine and Metamizole may falsely depress this assay. Performed By: #### L 500.4050, L501.9060, L100.0100, L501.2300 #### [facility] Laboratory [facility] [place] [address], [address] White blood cell (WBC) count Ordered By: Adam Ferraro on 12-28-2024 WBC (Bld) [#/Vol] 10.5 10*3/uL 4.4-11.0 [facility] Serum or plasma uric acid me asurement (mass/volume)Ordered By: Adam Ferraro on 11-27-2024 Urate [Mass/Vol] 5.8 mg/dL 3.5-7.2 [facility] Comment on above: The drugs N-Acetylcy steine and Metamizole may falsely depress this assay. Uric Acidon 11-27-2024 URIC 5.8 mg/dL Normal 3.5-7.2 [facility] Comment on above: Order Comment: 111.2 Result Comment: The drugs N-Acetylcysteine and Metamizole may falsely depress this assay. Performed By: #### L 501.1400 #### [facility] [address] [place], [address] Absolute neutrophil countOrd ered By: Adam Ferraro on 11-15-2024 Neutrophils (Bld) [#/Vol] 6.8 10*3/uL 2.0-7.7 [facility] Basic Metabolic Profile (BMP )on 11-15-2024 BUN/CRE 10.0 RATIO Normal 10-20 [facility] Comment on above: Order Comment: 111.2 20250423 Performed By: #### L 500.4050, L501.9060, L100.0100, L501.2300 #### [facility] [address] [place], [address] CA,Total 9.6 mg/dL Normal 8.5-10.1 [facility] Comment on above: Order Comment: 111.2 20250423 Performed By: #### L 500.4050, L501.9060, L100.0100, L501.2300 #### [facility] [address] [place], [address] Chloride [Moles/Vol] 108 mmol/L High 98-[address] [facility] Comment on above: Order Comment: 111.2 20250423 Performed By: #### L 500.4050, L501.9060, L100.0100, L501.2300 #### [facility] [address] [place], [address] CO2 [Moles/Vol] 23.0 mmol/L Normal 21.0-32.0 [facility] Comment on above: Order Comment: 111.2 20250423 Performed By: #### L 500.4050, L501.9060, L100.0100, L501.2300 #### [facility] [address] [place], [address] Creatinine [Mass/Vol] 2.30 mg/dL High 0.70-1.30 [facility] Comment on above: Order Comment: 111.2 20250423 Result Comment: The validity of the calculated GFR GFRAA in patients over 70 years has not been determined. Clinical correlation is essential. Performed By: #### L 500.4050, L501.9060, L100.0100, L501.2300 #### [facility] [address] [place], [address] EST GFR - AA 37 mL/min Low >60 [facility] Comment on above: Order Comment: 111.2 20250423 Result Comment: Afri can [place]ij[place] GFR Calc Performed By: #### L 500.4050, L501.9060, L100.0100, L501.2300 #### [facility] [address] [place], [address] GAP 8 Normal 5-15 [facility] Comment on above: Order Comment: 111.20250423 Performed By: #### L 500.4050, L501.9060, L100.0100, L501.2300 #### [facility] [address] [place], [address] GFR/1.73 sq M.predicted among non-blacks MDRD (S/P/Bld) [Vol rate/Area] 31 mL/min/{1.73_m2} Low >60 [facility] Comment on above: Order Comment: 111.2 20250423 Result Comment: Non- GFR Calc Performed By: #### L 500.4050, L501.9060, L100.0100, L501.2300 #### [facility] [address] [place], [address] Glucose [Mass/Vol] 114 mg/dL High 74-106 [facility] Comment on above: Order Comment: 111.2 20250423 Result Comment: Fast ing Glucose result from 100 to 125 mg/dL suggests IMPAIRED HOMEOSTASIS per A.D.A. criteria. Performed By: #### L 500.4050, L501.9060, L100.0100, L501.2300 #### [facility] [address] [place], [address] Potassium [Moles/Vol] 4.2 mmol/L Normal 3.5-5.1 [facility] Comment on above: Order Comment: 111.2 20250423 Performed By: #### L 500.4050, L501.9060, L100.0100, L501.2300 #### [facility] [address] [place], [address] Sodium [Moles/Vol] 140 mmol/L Normal 136-145 [facility] Comment on above: Order Comment: 111.2 20250423 Performed By: #### L 500.4050, L501.9060, L100.0100, L501.2300 #### [facility] [address] [place], [address] Urea nitrogen [Mass/Vol] 23 mg/dL High 7-18 [facility] Comment on above: Order Comment: 111.2 20250423 Performed By: #### L 500.4050, L501.9060, L100.0100, L501.2300 #### [facility] [address] [place], [address] Basophil percentageOrdered B y: Adam Ferraro on 11-15-2024 Basophils/100 WBC (Bld) 1.2 % High 0-1 [facility] Blood urea nitrogen (BUN)/cr eatinine ratioOrdered By: Adam Ferraro on 11-15-2024 Urea nitrogen/Creatinine [Mass ratio] 10.0 mg/mg 10-20 [facility] CBC W/Diff, Automatedon Absolute Lymph 2.67 X10 3/uL Normal 0.83-4.51 [facility] Comment on above: Order Comment: 111.2 20250423 Performed By: #### L 500.4050, L501.9060, L100.0100, L501.2300 #### [facility] [address] [place], [address] Absolute Neut 6.8 X10 3/uL Normal 2.0-7.7 [facility] Comment on above: Order Comment: 111.2 20250423 Performed By: #### L 500.4050, L501.9060, L100.0100, L501.2300 #### [facility] [address] [place], [address] Basophils/100 WBC (Bld) 1.2 % High 0-1 [facility] Comment on above: Order Comment: 111.2 20250423 Performed By: #### L 500.4050, L501.9060, L100.0100, L501.2300 #### [facility] [address] [place], [address] Eosinophils/100 WBC (Bld) 4.6 % Normal 0-5 [facility] Comment on above: Order Comment: 111.20250423 Performed By: #### L 500.4050, L501.9060, L100.0100, L501.2300 #### [facility] [address] [place], [address] Erythrocyte distribution width (RBC) [Ratio] 12.9 % Normal 11.6-14.6 [facility] Comment on above: Order Comment: 111.2 20250423 Performed By: #### L 500.4050, L501.9060, L100.0100, L501.2300 #### [facility] [address] [place], [address] Hematocrit (Bld) [Volume fraction] 41.5 % Normal 40-54 [facility] Comment on above: Order Comment: 111.2 20250423 Performed By: #### L 500.4050, L501.9060, L100.0100, L501.2300 #### [facility] [address] [place], [address] Hemoglobin (Bld) [Mass/Vol] 13.6 g/dL Normal 13.0-16.5 [facility] Comment on above: Order Comment: 111.20250423 Performed By: #### L 500.4050, L501.9060, L100.0100, L501.2300 #### [facility] [address] [place], [address] IG% 0.500 Normal 0.0-0.9 [facility] Comment on above: Order Comment: 111.20250423 Result Comment: IG% - Immature Granulocytes (promyelocytes, myelocytes and metamyelocytes) > 1% indicates that a LEFT SHIFT is Present. Performed By: #### L 500.4050, L501.9060, L100.0100, L501.2300 #### [facility] [address] [place], [address] Lymphocytes/100 WBC (Bld) 23.8 % Normal 19-41 [facility] Comment on above: Order Comment: 111.20250423 Performed By: #### L 500.4050, L501.9060, L100.0100, L501.2300 #### [facility] [address] [place], [address] MCH (RBC) [Entitic mass] 29.9 pg Normal 27.0-32.0 [facility] Comment on above: Order Comment: 111.20250423 Performed By: #### L 500.4050, L501.9060, L100.0100, L501.2300 #### [facility] [address] [place], [address] MCHC (RBC) [Mass/Vol] 32.8 g/dL Normal 32-36 [facility] Comment on above: Order Comment: 111.2 20250423 Performed By: #### L 500.4050, L501.9060, L100.0100, L501.2300 #### [facility] [address] [place], [address] MCV (RBC) [Entitic vol] 91.2 fL Normal 80-94 [facility] Comment on above: Order Comment: 111.2 20250423 Performed By: #### L 500.4050, L501.9060, L100.0100, L501.2300 #### [facility] [address] [place], [address] Monocytes/100 WBC (Bld) 9.8 % Normal 0-10 [facility] Comment on above: Order Comment: 111.2 20250423 Performed By: #### L 500.4050, L501.9060, L100.0100, L501.2300 #### [facility] [address] [place], [address] Neutrophils/100 WBC (Bld) 60.1 % Normal 47-70 [facility] Comment on above: Order Comment: 111.2 20250423 Performed By: #### L 500.4050, L501.9060, L100.0100, L501.2300 #### [facility] [address] [place], [address] Nucleated RBC (Bld) [#/Vol] 0 10*3/uL Normal 0-5 [facility] Comment on above: Order Comment: 111.2 20250423 Performed By: #### L 500.4050, L501.9060, L100.0100, L501.2300 #### [facility] [address] [place], [address] Platelet mean volume (Bld) [Entitic vol] 9.5 fL Normal 6.2-12.0 [facility] Comment on above: Order Comment: 111.2 20250423 Performed By: #### L 500.4050, L501.9060, L100.0100, L501.2300 #### [facility] [address] [place], [address] Platelets (Bld) [#/Vol] 257 10*3/uL Normal 150-450 [facility] Comment on above: Order Comment: 111.2 20250423 Performed By: #### L 500.4050, L501.9060, L100.0100, L501.2300 #### [facility] [address] [place], [address] RBC (Bld) [#/Vol] 4.55 10*6/uL Low 4.6-6.2 [facility] Comment on above: Order Comment: 111.2 20250423 Performed By: #### L 500.4050, L501.9060, L100.0100, L501.2300 #### [facility] [address] [place], [address] RDW SD 42.9 fl Normal 35.1-43.9 [facility] Comment on above: Order Comment: 111.2 20250423 Performed By: #### L 500.4050, L501.9060, L100.0100, L501.2300 #### [facility] [address] [place], [address] WBC (Bld) [#/Vol] 11.2 10*3/uL High 4.4-11.0 [facility] Comment on above: Order Comment: 111.2 20250423 Performed By: #### L 500.4050, L501.9060, L100.0100, L501.2300 #### [facility] [address] [place], [address] Carbon dioxide measurementOr dered By: Adam Ferraro on 11-15-2024 CO2 [Moles/Vol] 23.0 mmol/L 21.0-32.0 [facility] Chloride measurementOrdered By: Adam Ferraro on 11-15-2024 Chloride [Moles/Vol] 108 mmol/L High 98-[address] [facility] Eosinophil percentageOrdered By: Adam Ferraro on 11-15-2024 Eosinophils/100 WBC (Bld) 4.6 % 0-5 [facility] Erythrocyte distribution wid th ratioOrdered By: Adam Ferraro on 11-15-2024 Erythrocyte distribution width (RBC) [Ratio] 12.9 % 11.6-14.6 [facility] Erythrocyte distribution wid th standard deviationOrdered By: Adam Ferraro on 11-15-2024 Erythrocyte distribution width (RBC) [Entitic vol] 42.9 fL 35.1-43.9 [facility] Estimated glomerular filtrat ion rate (GFR) AmericanOrdered By: Adam Ferraro on 11-15-2024 Estimated GFR (MDRD) Amer 37 mL/min Low >60 [facility] Comment on above: GFR Calc Glomerular filtration rate ( GFR) estimationOrdered By: Adam Ferraro on 11-15-2024 Estimated GFR (MDRD) Non-Af Amer 31 mL/min Low >60 [facility] Comment on above: Non- GFR Calc Glucose measurementOrdered B y: Adam Ferraro on 11-15-2024 Glucose [Mass/Vol] 114 mg/dL High 74-106 [facility] Comment on above: Fasting Glucose resu lt from 100 to 125 mg/dL suggests IMPAIRED HOMEOSTASIS per A.D.A. criteria. Hematocrit Auto (Bld) [Volum e fraction]Ordered By: Adam Ferraro on 11-15-2024 Hematocrit (Bld) [Volume fraction] 41.5 % 40-54 [facility] Hemoglobin measurementOrdere d By: Adam Ferraro on 11-15-2024 Hemoglobin (Bld) [Mass/Vol] 13.6 g/dL 13.0-16.5 [facility] Immature granulocytes/100 WB C Auto (Bld)Ordered By: Adam Ferraro on 11-15-2024 Immature granulocytes/100 WBC (Bld) 0.500 % 0.0-0.9 [facility] Comment on above: IG% - Immature Granu locytes (promyelocytes, myelocytes and metamyelocytes) > 1% indicates that a LEFT SHIFT is Present. Lithiumon 11-15-2024 LI 0.60 mmol/L Normal 0.60-1.20 [facility] Comment on above: Order Comment: 111.2 [id number] Performed By: #### L 500.4050, L501.9060, L100.0100, L501.2300 #### [facility] [address] [place], [address] [place] levelOrdered By: Benoit Ferraro on 11-15-2024 [place] Level 0.60 mmol/L 0.60-1.20 [facility] Lymphocytes Auto (Unsp spec) [#/Vol]Ordered By: Adam Ferraro on 11-15-2024 Lymphocytes (Bld) [#/Vol] 2.67 10*3/uL 0.83-4.51 [facility] Lymphocytes/100 WBC Auto (Un sp spec)Ordered By: Adam Ferraro on 11-15-2024 Lymphocytes/100 WBC (Bld) 23.8 % 19-41 [facility] MCV (mean corpuscular volume ) determinationOrdered By: Adam Ferraro on 11-15-2024 MCV (RBC) [Entitic vol] 91.2 fL 80-94 [facility] Mean corpuscular hemoglobin (MCH) determinationOrdered By: Adam Ferraro on 11-15-2024 MCH (RBC) [Entitic mass] 29.9 pg 27.0-32.0 [facility] Mean corpuscular hemoglobin concentration (MCHC) determinationOrdered By: Adam Ferraro on 11-15-2024 MCHC (RBC) [Mass/Vol] 32.8 g/dL 32-36 [facility] Mean platelet volume determi nationOrdered By: Adam Ferraro on 11-15-2024 Platelet mean volume (Bld) [Entitic vol] 9.5 fL 6.2-12.0 [facility] Microalb:Creat Ratio,Random URon 11-15-2024 Creatinine [Mass/Vol] 50.60 mg/dL Normal NO RAN GE EST. [facility] Comment on above: Performed By: #### L 501.9060 #### [facility] [address] [place], [address] MALB:CRE TNP Normal <30 mg/g CRE [facility] Comment on above: Performed By: #### L 501.9060 #### [facility] [address] [place], [address] MICROALBUMIN,UR < 5.0 Normal NO RANGE EST. [facility] Comment on above: Performed By: #### L 501.9060 #### [facility] [address] [place], [address]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 L501.2300 #### [facility] [address] [place], [address] Protein+Creatinine Ratio,Uri neon 06-25-2024 PROT:CRE RATIO Normal 0-200 [facility] Comment on above: Order Comment: 111.2 Result Comment: PLAI N YELLOW TOP TUBE NOT COLLECTED Performed By: #### L 500.4050, L501.9060, L100.0100, L501.2300 #### [facility] [address] [place], [address] PROTEIN,UR.RAN. Normal <11.9 [facility] Comment on above: Order Comment: 111.2 Result Comment: PLAI N YELLOW TOP TUBE NOT COLLECTED Performed By: #### L 500.4050, L501.9060, L100.0100, L501.2300 #### [facility] [address] [place], [address] UR CREAT Normal NO RANGE EST. [facility] Comment on above: Order Comment: 111.2 Result Comment: PLAI N YELLOW TOP TUBE NOT COLLECTED Performed By: #### L 500.4050, L501.9060, L100.0100, L501.2300 #### [facility] [address] [place], [address] CBC W/Diff, Automatedon 08-0 9-2023 Absolute Lymph 2.09 X10 3/uL Normal 0.83-4.51 [facility] Comment on above: Order Comment: 111.2 [id number] 0000 Performed By: #### L 501.9060 #### [facility] [address] [place], [address] Absolute Neut 5.3 X10 3/uL Normal 2.0-7.7 [facility] Comment on above: Order Comment: 111.20250331 Performed By: #### L 501.9060 #### [facility] [address] [place], [address] Basophils/100 WBC (Bld) 1.1 % High 0-1 [facility] Comment on above: Order Comment: 111.2 [id number] 0000 Performed By: #### L 501.9060 #### [facility] [address] [place], [address] Eosinophils/100 WBC (Bld) 5.4 % High 0-5 [facility] Comment on above: Order Comment: 111.20250331 0000 Performed By: #### L 501.9060 #### [facility] [address] [place], [address] Erythrocyte distribution width (RBC) [Ratio] 13.0 % Normal 11.6-14.6 [facility] Comment on above: Order Comment: 111.20250331 Performed By: #### L 501.9060 #### [facility] [address] [place], [address] Hematocrit (Bld) [Volume fraction] 40.7 % Normal 40-54 [facility] Comment on above: Order Comment: 111.20250331 Performed By: #### L 501.9060 #### [facility] [address] [place], [address] Hemoglobin (Bld) [Mass/Vol] 13.1 g/dL Normal 13.0-16.5 [facility] Comment on above: Order Comment: 111.20250331 Performed By: #### L 501.9060 #### [facility] [address] [place], [address] IG% 0.300 Normal 0.0-0.9 [facility] Comment on above: Order Comment: 111.20250331 Result Comment: IG% - Immature Granulocytes (promyelocytes, myelocytes and metamyelocytes) > 1% indicates that a LEFT SHIFT is Present. Performed By: #### L 501.9060 #### [facility] [address] [place], [address] Lymphocytes/100 WBC (Bld) 23.7 % Normal 19-41 [facility] Comment on above: Order Comment: [id number] Performed By: #### L 501.9060 #### [facility] [address] [place], [address] MCH (RBC) [Entitic mass] 29.5 pg Normal 27.0-32.0 [facility] Comment on above: Order Comment: [id number] Performed By: #### L 501.9060 #### [facility] [address] [place], [address] MCHC (RBC) [Mass/Vol] 32.2 g/dL Normal 32-36 [facility] Comment on above: Order Comment: [id number] Performed By: #### L 501.9060 #### [facility] [address] [place], [address] MCV (RBC) [Entitic vol] 91.7 fL Normal 80-94 [facility] Comment on above: Order Comment: 111.20250331 Performed By: #### L 501.9060 #### [facility] [address] [place], [address] Monocytes/100 WBC (Bld) 9.2 % Normal 0-10 [facility] Comment on above: Order Comment: 111.20250331 Performed By: #### L 501.9060 #### [facility] [address] [place], [address] Neutrophils/100 WBC (Bld) 60.3 % Normal 47-70 [facility] Comment on above: Order Comment: .[id number] Performed By: #### L 501.9060 #### [facility] [address] [place], [address] Nucleated RBC (Bld) [#/Vol] 0 10*3/uL Normal 0-5 [facility] Comment on above: Order Comment: 111.20250331 Performed By: #### L 501.9060 #### [facility] [address] [place], [address] Platelet mean volume (Bld) [Entitic vol] 9.5 fL Normal 6.2-12.0 [facility] Comment on above: Order Comment: 111.20250331 Performed By: #### L 501.9060 #### [facility] [address] [place], [address] Platelets (Bld) [#/Vol] 229 10*3/uL Normal 150-450 [facility] Comment on above: Order Comment: 111.20250331 Performed By: #### L 501.9060 #### [facility] [address] [place], [address] RBC (Bld) [#/Vol] 4.44 10*6/uL Low 4.6-6.2 [facility] Comment on above: Order Comment: [id number] Performed By: #### L 501.9060 #### [facility] [address] [place], [address] RDW SD 43.2 fl Normal 35.1-43.9 [facility] Comment on above: Order Comment: [id number] Performed By: #### L 501.9060 #### [facility] [address] [place], [address] WBC (Bld) [#/Vol] 8.8 10*3/uL Normal 4.4-11.0 [facility] Comment on above: Order Comment: [id number] Performed By: #### L 501.9060 #### [facility] [address] [place], [address] Lithiumon 06-22-2024 LI 0.70 mmol/L Normal 0.60-1.20 [facility] Comment on above: Order Comment: [id number] Performed By: #### L 501.9060 #### [facility] [address] [place], [address] Protein+Creatinine Ratio,Uri neon 06-22-2024 PROT:CRE RATIO Normal 0-200 [facility] Comment on above: Order Comment: [id number] Result Comment: This specimen has been REJECTED due to Laboratory criteria: Quanity Not Sufficient. NEW URINE TO BE RECOLLECTED. WAS IN WRONG CONTAINER 06/23/2428 Geraldine Blevins Performed By: #### L 501.9060 #### [facility] [address] [place], [address] PROTEIN,UR.RAN. Normal <11.9 [facility] Comment on above: Order Comment: [id number] Result Comment: This specimen has been REJECTED due to Laboratory criteria: Quanity Not Sufficient. NEW URINE TO BE RECOLLECTED. WAS IN WRONG CONTAINER 06/23/2428 Geraldine Blevins Performed By: #### L 501.9060 #### [facility] [address] [place], [address] UR CREAT Normal NO RANGE EST. [facility] Comment on above: Order Comment: 111.2 [id number] 0000 Result Comment: This specimen has been REJECTED due to Laboratory criteria: Quanity Not Sufficient. NEW URINE TO BE RECOLLECTED. WAS IN WRONG CONTAINER 06/23/24527 Geraldine Blevins Performed By: #### L 501.9060 #### [facility] [address] [place], [address] Renal Profileon 06-22-2024 Albumin [Mass/Vol] 3.1 g/dL Low 3.2-5.0 [facility] Comment on above: Order Comment: 111.2 [id number] 0000 Performed By: #### L 501.9060 #### [facility] [address] [place], [address] BUN/CRE 8.5 RATIO Low 10-20 [facility] Comment on above: Order Comment: 111.2 [id number] 0000 Performed By: #### L 501.9060 #### [facility] [address] [place], [address] CA,Total 9.4 mg/dL Normal 8.5-10.1 [facility] Comment on above: Order Comment: 111.2 20250331 0000 Performed By: #### L 501.9060 #### [facility] [address] [place], [address] Chloride [Moles/Vol] 110 mmol/L High 98-[address] [facility] Comment on above: Order Comment: 111.2 20250331 0000 Performed By: #### L 501.9060 #### [facility] [address] [place], [address] CO2 [Moles/Vol] 24.0 mmol/L Normal 21.0-32.0 [facility] Comment on above: Order Comment: 111.2 [id number] Performed By: #### L [id number] #### [facility] [address] [place], [address] Creatinine [Mass/Vol] 2.12 mg/dL High 0.70-1.30 [facility] Comment on above: Order Comment: 111.2 [id number] Result Comment: The validity of the calculated GFR GFRAA in patients over 70 years has not been determined. Clinical correlation is essential. Performed By: #### L [id number] #### [facility] [address] [place], [address] EST GFR - AA 41 mL/min Low >60 [facility] Comment on above: Order Comment: [id number] Result Comment: Afri can Azerbaijani GFR Calc Performed By: #### L 310.9060 #### [facility] [address] [place], [address] GFR/1.73 sq M.predicted among non-blacks MDRD (S/P/Bld) [Vol rate/Area] 34 mL/min/{1.73_m2} Low >60 [facility] Comment on above: Order Comment: [id number] Result Comment: Non- GFR Calc Performed By: #### L [id number] #### [facility] [address] [place], [address] Glucose [Mass/Vol] 106 mg/dL Normal 74-106 [facility] Comment on above: Order Comment: 111.2 [id number] Result Comment: Fast ing Glucose result from 100 to 125 mg/dL suggests IMPAIRED HOMEOSTASIS per A.D.A. criteria. Performed By: #### L 458.9060 #### [facility] [address] [place], [address] Phosphate [Mass/Vol] 4.2 mg/dL Normal 2.5-4.[address] [facility] Comment on above: Order Comment: [id number] Performed By: #### L 501.9060 #### [facility] [address] [place], [address] Potassium [Moles/Vol] 4.3 mmol/L Normal 3.5-5.1 [facility] Comment on above: Order Comment: 111.2 [id number] Performed By: #### L 501.9060 #### [facility] [address] [place], [address] Sodium [Moles/Vol] 141 mmol/L Normal 136-145 [facility] Comment on above: Order Comment: [id number] Performed By: #### L 501.9060 #### [facility] [address] [place], [address] Urea nitrogen [Mass/Vol] 18 mg/dL Normal 7-18 [facility] Comment on above: Order Comment: [id number] Performed By: #### L 501.9060 #### [facility] [address] [place], [address] Hemoglobin A1con 06-08-2024 HbA1c (Bld) [Mass fraction] 5.9 % High 3.8-5.6 [facility] Comment on above: Order Comment: 111.2 Result Comment: Norm al < 5.7 % Prediabetic 5.7 - 6.4 % Diabetic >or= 6.5 % Please note range changes. Performed By: #### L 500.4050, L501.9060, L100.0100, L501.2300 #### [facility] [address] [place], [address] Protein+Creatinine Ratio,Uri neon 05-28-2024 PROT:CRE RATIO 135 mg/g CRE Normal 0-200 [facility] Comment on above: Performed By: #### L 501.9060 #### [facility] [address] [place], [address] Protein (U) [Mass/Vol] 20.5 mg/dL High <11.9 [facility] Comment on above: Performed By: #### L 112.2731 #### [facility] [address] [place], [address] UR CREAT 152.00 mg/dL Normal NO RANGE EST. [facility] Comment on above: Performed By: #### L 136.9018 #### [facility] [address] [place], [address] CBC W/Diff, Automatedon 05-14-2023 Absolute Lymph 2.11 X10 3/uL Normal 0.83-4.51 [facility] Comment on above: Performed By: #### L 265.9079 #### [facility] [address] [place], [address] Absolute Neut 6.6 X10 3/uL Normal 2.0-7.7 [facility] Comment on above: Performed By: #### L [id number] #### [facility] [address] [place], [address] Basophils/100 WBC (Bld) 1.0 % Normal 0-1 [facility] Comment on above: Performed By: #### L 100.9016 #### [facility] [address] [place], [address] Eosinophils/100 WBC (Bld) 5.2 % High 0-5 [facility] Comment on above: Performed By: #### L [id number] #### [facility] [address] [place], [address] Erythrocyte distribution width (RBC) [Ratio] 13.1 % Normal 11.6-14.6 [facility] Comment on above: Performed By: #### L 582.9017 #### [facility] [address] [place], [address] Hematocrit (Bld) [Volume fraction] 42.0 % Normal 40-54 [facility] Comment on above: Performed By: #### L 381.8753 #### [facility] [address] [place], [address] Hemoglobin (Bld) [Mass/Vol] 13.6 g/dL Normal 13.0-16.5 [facility] Comment on above: Performed By: #### L 154.3113 #### [facility] [address] [place], [address] IG% 0.500 Normal 0.0-0.9 [facility] Comment on above: Result Comment: IG% - Immature Granulocytes (promyelocytes, myelocytes and metamyelocytes) > 1% indicates that a LEFT SHIFT is Present. Performed By: #### L 771.9085 #### [facility] [address] [place], [address] Lymphocytes/100 WBC (Bld) 20.5 % Normal 19-41 [facility] Comment on above: Performed By: #### L 276.1254 #### [facility] [address] [place], [address] MCH (RBC) [Entitic mass] 29.8 pg Normal 27.0-32.0 [facility] Comment on above: Performed By: #### L 040.9010 #### [facility] [address] [place], [address] MCHC (RBC) [Mass/Vol] 32.4 g/dL Normal 32-36 [facility] Comment on above: Performed By: #### L 659.9017 #### [facility] [address] [place], [address] MCV (RBC) [Entitic vol] 91.9 fL Normal 80-94 [facility] Comment on above: Performed By: #### L 074.9013 #### [facility] [address] [place], [address] Monocytes/100 WBC (Bld) 8.4 % Normal 0-10 [facility] Comment on above: Performed By: #### L 501.9060 #### [facility] [address] [place], [address] Neutrophils/100 WBC (Bld) 64.4 % Normal 47-70 [facility] Comment on above: Performed By: #### L 501.9060 #### [facility] [address] [place], [address] Nucleated RBC (Bld) [#/Vol] 0 10*3/uL Normal 0-5 [facility] Comment on above: Performed By: #### L 501.9060 #### [facility] [address] [place], [address] Platelet mean volume (Bld) [Entitic vol] 9.6 fL Normal 6.2-12.0 [facility] Comment on above: Performed By: #### L 501.9060 #### [facility] [address] [place], [address] Platelets (Bld) [#/Vol] 243 10*3/uL Normal 150-450 [facility] Comment on above: Performed By: #### L 501.9060 #### [facility] [address] [place], [address] RBC (Bld) [#/Vol] 4.57 10*6/uL Low 4.6-6.2 [facility] Comment on above: Performed By: #### L 501.9060 #### [facility] [address] [place], [address] RDW SD 43.5 fl Normal 35.1-43.9 [facility] Comment on above: Performed By: #### L 501.9060 #### [facility] [address] [place], [address] WBC (Bld) [#/Vol] 10.3 10*3/uL Normal 4.4-11.0 [facility] Comment on above: Performed By: #### L 501.9060 #### [facility] [address] [place], [address] Lithiumon 05-25-2024 LI 0.60 mmol/L Normal [facility] Comment on above: Order Comment: 111.2 Result Comment: Ther apeutic Range: 0.60 - 1.20 Performed By: #### L 501.1400 #### [facility] [address] [place], [address] Renal Profileon 05-25-2024 Albumin [Mass/Vol] 3.1 g/dL Low 3.2-5.0 [facility] Comment on above: Performed By: #### L 501.1400 #### [facility] [address] [place], [address] BUN/CRE 10.6 RATIO Normal 10-20 [facility] Comment on above: Performed By: #### L 501.1400 #### [facility] [address] [place], [address] CA,Total 9.6 mg/dL Normal 8.5-10.1 [facility] Comment on above: Performed By: #### L 501.1400 #### [facility] [address] [place], [address] Chloride [Moles/Vol] 108 mmol/L High 98-[address] [facility] Comment on above: Performed By: #### L 501.1400 #### [facility] [address] [place], [address] CO2 [Moles/Vol] 26.0 mmol/L Normal 21.0-32.0 [facility] Comment on above: Performed By: #### L 501.1400 #### [facility] [address] [place], [address] Creatinine [Mass/Vol] 2.17 mg/dL High 0.70-1.30 [facility] Comment on above: Result Comment: The validity of the calculated GFR GFRAA in patients over 70 years has not been determined. Clinical correlation is essential. Performed By: #### L 501.1400 #### [facility] [address] [place], [address] EST GFR - AA 40 mL/min Low >60 [facility] Comment on above: Result Comment: Afri can [place] GFR Calc Performed By: #### L 501.1400 #### [facility] [address], [address] GFR/1.73 sq M.predicted among non-blacks MDRD (S/P/Bld) [Vol rate/Area] 33 mL/min/{1.73_m2} Low >60 [facility] Comment on above: Result Comment: Non- GFR Calc Performed By: #### L 501.1400 #### [facility] [address] [place], [address] Glucose [Mass/Vol] 126 mg/dL High 74-106 [facility] Comment on above: Result Comment: Fast ing Glucose result greater than or equal to 126 mg/dL suggests DIABETES MELLITUS per A.D.A. criteria. Performed By: #### L 501.1400 #### [facility] [address] [place], [address] Phosphate [Mass/Vol] 4.7 mg/dL Normal 2.5-4.[address] [facility] Comment on above: Performed By: #### L 501.1400 #### [facility] [address] [place], [address] Potassium [Moles/Vol] 4.1 mmol/L Normal 3.5-5.1 [facility] Comment on above: Performed By: #### L 501.1400 #### [facility] [address] [place], [place], [address] Sodium [Moles/Vol] 140 mmol/L Normal 136-145 [facility] Comment on above: Performed By: #### L 501.1400 #### [facility] [address] [place], [place], [address] Urea nitrogen [Mass/Vol] 23 mg/dL High 7-18 [facility] Comment on above: Performed By: #### L 501.1400 #### [facility] [address] [place], [place], [address] CNPNon 05-21-2024 CNPN Telephone ([facility]) -- REGGIE LEÓN ([id number]) 1965 M Date Time Provider Department 05/21/24 DOROTA SMITH During your visit today, we recorded the following information about you: Brianna Juárez 05/21/2024 9:54 AM Signed No Show Documentation Reggie León no showed for an appointment on [id number] with Dorota Smith MD at [facility]. He was scheduled for 919. I called [...] by: Babak Drummond RN - Fully Assessed Reason for Visit: [...] 10 mg by mouth once daily. - Bddmu-2-UDU-EPA-Fish Oil 1,000 mg (120 mg-180 mg) cap Take 1 capsule by mouth once daily. - PALIPERIDONE ORAL Take 6 mg by mouth as directed. Problem List As Of Date 05/21/2024 Noted Resolved Pneumonia, Organism Unspecified [J18.9] 01/29/2008 02/11/2010 Acute Gastritis without Mention of Hemorrhage [*05/28/2008 02/11/2010 Nontraumatic rupture of other tendons of foot a*10/08/2009 07/30/2016 [facility]*10/21/2009 01/29/2013 Class: Chronic Bipolar affective disorder (HCC) [F31.9] 10/21/2009 Tobacco abuse [Z72.0] 10/21/2009 07/10/2018 Porokeratosis [Q82.8] 02/03/2010 Gastritis, chronic [K29.50] 02/11/2010 07/10/2018 Erosive esophagitis [K22.10] 02/11/2010 Achilles bursitis or tendinitis [M76.60] 03/20/2010 07/30/2016 Contusion of unspecified site [T14.8XXA] 03/30/2010 07/30/2016 Enthesopathy of unspecified site [M77.9] 11/25/2010 07/10/2018 Other physical therapy [ZPY2770] 11/25/2010 07/10/2018 Low HDL (under 40) [E78.6] [...] (leucocytosis) [D (more content not included)... Normal [facility] CNPNon 03-19-2024 [facility] -- REGGIE LEÓN ([id number]) 1965 M Date Time Provider Department 03/19/24 [...] Date Reviewed: 02/09/2024 Reviewed by: Babak Drummond, JENSEN - Fully Assessed Prescriptions as of 03/19/2024 [...] 10 mg by mouth once daily. - Kytnx-7-ZED-EPA-Fish Oil 1,000 mg (120 mg-180 mg) cap Take 1 capsule by mouth once daily. - PALIPERIDONE ORAL Take 6 mg by mouth as directed. Problem List As Of Date 03/19/2024 Noted Resolved Pneumonia, Organism Unspecified [J18.9] 01/29/2008 02/11/2010 Acute Gastritis without Mention of Hemorrhage [*05/28/2008 02/11/2010 Nontraumatic rupture of other tendons of foot a*10/08/2009 07/30/2016 [facility]*10/21/2009 01/29/2013 Class: Chronic Bipolar affective disorder (HCC) [F31.9] 10/21/2009 Tobacco abuse [Z72.0] 10/21/2009 07/10/2018 Porokeratosis [Q82.8] 02/03/2010 Gastritis, chronic [K29.50] 02/11/2010 07/10/2018 Erosive esophagitis [K22.10] 02/11/2010 Achilles bursitis or tendinitis [M76.60] 03/20/2010 07/30/2016 Contusion of unspecified site [T14.8XXA] 03/30/2010 07/30/2016 Enthesopathy of unspecified site [M77.9] 11/25/2010 07/10/2018 Other physical therapy [[id number]] 11/25/2010 07/10/2018 Low HDL (under 40) [E78.6] [...] (obstructive sle (more content not included)... Normal [facility] Absolute lymphocyte countOrd ered By: Alfredo Phipps on 02-03-2024 Lymphocytes Auto (Unsp spec) [#/Vol] 2.12 10*3/uL 0.83-4.51 [facility] Automated lymphocyte count a s percentage of total leukocytesOrdered By: Alfredo Phipps on 02-03-2024 Lymphocytes/100 WBC Auto (Unsp spec) 20.5 % 19-41 [facility] Basophil percentageOrdered B y: Alfredo Phipps on 02-03-2024 Basophil percentage 4.0 mg/dL 2.5-4.9 [facility] Basophils/100 WBC (Bld) 0.9 % 0-1 [facility] Chloride [Moles/Vol] 109 mmol/L 98-[address] [facility] Eosinophils/100 WBC (Bld) 3.9 % 0-5 [facility] Glucose [Mass/Vol] 122 mg/dL 74-106 [facility] Comment on above: Fasting Glucose resu lt from 100 to 125 mg/dL suggests IMPAIRED HOMEOSTASIS per A.D.A. criteria. Hemoglobin (Bld) [Mass/Vol] 13.3 g/dL 13.0-16.5 [facility] Monocytes/100 WBC (Bld) 8.8 % 0-10 [facility] Neutrophils (Bld) [#/Vol] 6.8 10*3/uL 2.0-7.7 [facility] Neutrophils/100 WBC (Bld) 65.2 % 47-70 [facility] Potassium [Moles/Vol] 4.1 mmol/L 3.5-5.1 [facility] Sodium [Moles/Vol] 140 mmol/L 136-145 [facility] WBC (Bld) [#/Vol] 10.4 10*3/uL 4.4-11.0 [facility] Determination of erythrocyte mean corpuscular volume (MCV)Ordered By: Alfredo Phipps on 02-03-2024 MCV (RBC) [Entitic vol] 89.0 fL 80-94 [facility] Erythrocyte distribution wid th ratioOrdered By: Alfredo Phipps on 02-03-2024 Erythrocyte distribution width (RBC) [Ratio] 13.6 % 11.6-14.6 [facility] Erythrocyte distribution wid th standard deviationOrdered By: Alfredo Phipps on 02-03-2024 Erythrocyte distribution width (RBC) [Entitic vol] 44.2 fL 35.1-43.9 [facility] Hematocrit Auto (Bld) [Volum e fraction]Ordered By: Alfredo Phipps on 02-03-2024 Hematocrit (Bld) [Volume fraction] 40.4 % 40-54 [facility] Immature granulocytes/100 WB C Auto (Bld)Ordered By: Alfredo Phipps on 02-03-2024 Immature granulocytes/100 WBC (Bld) 0.700 % 0.0-0.9 [facility] Comment on above: IG% - Immature Granu locytes (promyelocytes, myelocytes and metamyelocytes) > 1% indicates that a LEFT SHIFT is Present. Laboratory - Chemistry and C hemistry - challengeOrdered By: Alfredo Phipps on 02-03-2024 CO2 [Moles/Vol] 24.0 mmol/L 21.0-32.0 [facility] Urea nitrogen/Creatinine [Mass ratio] 10.9 mg/mg 10-20 [facility] Laboratory - Hematology and Cell countsOrdered By: Alfredo Phipps on 02-03-2024 MCH (RBC) [Entitic mass] 29.3 pg 27.0-32.0 [facility] MCHC (RBC) [Mass/Vol] 32.9 g/dL 32-36 [facility] Nucleated RBC/100 WBC (Bld) [Ratio] 0 % 0-5 [facility] Platelet mean volume (Bld) [Entitic vol] 9.5 fL 6.2-12.0 [facility] Platelets (Bld) [#/Vol] 234 10*3/uL 150-450 [facility] No Panel InformationOrdered By: Alfredo Phipps on 02-03-2024 Estimated GFR (MDRD) Amer 48 mL/min >60 [facility] Comment on above: GFR Calc Estimated GFR (MDRD) Non-Af Amer 40 mL/min >60 [facility] Comment on above: Non- GFR Calc [place] Level 0.60 mmol/L 0.60-1.20 [facility] RBC Auto (Bld) [#/Vol]Ordere d By: Alfredo Phipps on 02-03-2024 RBC (Bld) [#/Vol] 4.54 10*6/uL 4.6-6.2 [facility] Serum or plasma calcium you urement (mass/volume)Ordered By: Alfredo Phipps on 02-03-2024 Calcium [Mass/Vol] 9.2 mg/dL 8.5-10.1 [facility] Serum or plasma creatinine m easurement (mass/volume)Ordered By: Alfredo Phipps on 02-03-2024 Creatinine [Mass/Vol] 1.84 mg/dL 0.70-1.30 [facility] Comment on above: The validity of the calculated GFR & GFRAA in patients over 70 years has not been determined. Clinical correlation is essential. Serum or plasma urea nitroge n measurement (mass/volume)Ordered By: Alfredo Phipps on 02-03-2024 Urea nitrogen [Mass/Vol] 20 mg/dL 7-18 [facility] Thin prep Papanicolaou smear with manual screeningOrdered By: Alfredo Phipps on 02-03-2024 Thin prep Papanicolaou smear with manual screening 3.0 g/dL 3.2-5.0 [facility] Protein (U) [Mass/Vol] 19.8 mg/dL 0.0-11.8 [facility] Urine creatinine measurement (mass/volume)Ordered By: Alfredo Phipps on 02-03-2024 Creatinine (U) [Mass/Vol] 116.00 mg/dL NO RANGE EST. [facility] Urine protein/creatinine mas s ratioOrdered By: Alfredo Phipps on 02-03-2024 Protein/Creatinine (U) [Mass ratio] 171 mg/g CRE 0-200 [facility] Absolute lymphocyte countOrd ered By: Alfredo Phipps on 01-06-2024 Lymphocytes Auto (Unsp spec) [#/Vol] 2.00 10*3/uL 0.83-4.51 [facility] Automated lymphocyte count a s percentage of total leukocytesOrdered By: Alfredo Phipps on 01-06-2024 Lymphocytes/100 WBC Auto (Unsp spec) 20.9 % 19-41 [facility] Basophil percentageOrdered B y: Alfredo Phipps on 01-06-2024 Basophil percentage 4.2 mg/dL 2.5-4.9 [facility] Basophils/100 WBC (Bld) 0.8 % 0-1 [facility] Chloride [Moles/Vol] 109 mmol/L 98-[address] [facility] Eosinophils/100 WBC (Bld) 3.9 % 0-5 [facility] Glucose [Mass/Vol] 113 mg/dL 74-106 [facility] Comment on above: Fasting Glucose resu lt from 100 to 125 mg/dL suggests IMPAIRED HOMEOSTASIS per A.D.A. criteria. Hemoglobin (Bld) [Mass/Vol] 13.7 g/dL 13.0-16.5 [facility] Monocytes/100 WBC (Bld) 8.4 % 0-10 [facility] Neutrophils (Bld) [#/Vol] 6.3 10*3/uL 2.0-7.7 [facility] Neutrophils/100 WBC (Bld) 65.7 % 47-70 [facility] Potassium [Moles/Vol] 4.2 mmol/L 3.5-5.1 [facility] Sodium [Moles/Vol] 143 mmol/L 136-145 [facility] WBC (Bld) [#/Vol] 9.6 10*3/uL 4.4-11.0 [facility] Determination of erythrocyte mean corpuscular volume (MCV)Ordered By: Alfredo Phipps on 01-06-2024 MCV (RBC) [Entitic vol] 90.1 fL 80-94 [facility] Erythrocyte distribution wid th ratioOrdered By: Alfredo Phipps on 01-06-2024 Erythrocyte distribution width (RBC) [Ratio] 13.2 % 11.6-14.6 [facility] Erythrocyte distribution wid th standard deviationOrdered By: Alfredo Phipps on 01-06-2024 Erythrocyte distribution width (RBC) [Entitic vol] 43.2 fL 35.1-43.9 [facility] Hematocrit Auto (Bld) [Volum e fraction]Ordered By: Alfredo Phipps on 01-06-2024 Hematocrit (Bld) [Volume fraction] 41.7 % 40-54 [facility] Immature granulocytes/100 WB C Auto (Bld)Ordered By: Alfredo Phipps on 01-06-2024 Immature granulocytes/100 WBC (Bld) 0.300 % 0.0-0.9 [facility] Comment on above: IG% - Immature Granu locytes (promyelocytes, myelocytes and metamyelocytes) > 1% indicates that a LEFT SHIFT is Present. Laboratory - Chemistry and C hemistry - challengeOrdered By: Alfredo Phipps on 01-06-2024 CO2 [Moles/Vol] 24.0 mmol/L 21.0-32.0 [facility] Urea nitrogen/Creatinine [Mass ratio] 8.9 mg/mg 10-20 [facility] Laboratory - Hematology and Cell countsOrdered By: Alfredo Phipps on 01-06-2024 MCH (RBC) [Entitic mass] 29.6 pg 27.0-32.0 [facility] MCHC (RBC) [Mass/Vol] 32.9 g/dL 32-36 [facility] Nucleated RBC/100 WBC (Bld) [Ratio] 0 % 0-5 [facility] Platelet mean volume (Bld) [Entitic vol] 9.6 fL 6.2-12.0 [facility] Platelets (Bld) [#/Vol] 209 10*3/uL 150-450 [facility] No Panel InformationOrdered By: Alfredo Phipps on 01-06-2024 Estimated GFR (MDRD) Amer 44 mL/min >60 [facility] Comment on above: GFR Calc Estimated GFR (MDRD) Non-Af Amer 36 mL/min >60 [facility] Comment on above: Non- GFR Calc [place] Level 0.60 mmol/L 0.60-1.20 [facility] RBC Auto (Bld) [#/Vol]Ordere d By: Alfredo Phipps on 01-06-2024 RBC (Bld) [#/Vol] 4.63 10*6/uL 4.6-6.2 [facility] Serum or plasma calcium you urement (mass/volume)Ordered By: Alfredo Phipps on 01-06-2024 Calcium [Mass/Vol] 9.3 mg/dL 8.5-10.1 [facility] Serum or plasma creatinine m easurement (mass/volume)Ordered By: Alfredo Phipps on 01-06-2024 Creatinine [Mass/Vol] 2.02 mg/dL 0.70-1.30 [facility] Comment on above: The validity of the calculated GFR & GFRAA in patients over 70 years has not been determined. Clinical correlation is essential. Serum or plasma urea nitroge n measurement (mass/volume)Ordered By: Alfredo Phipps on 01-06-2024 Urea nitrogen [Mass/Vol] 18 mg/dL 7-18 [facility] Thin prep Papanicolaou smear with manual screeningOrdered By: Alfredo Phipps on 01-06-2024 Thin prep Papanicolaou smear with manual screening 3.3 g/dL 3.2-5.0 [facility] Protein (U) [Mass/Vol] 19.0 mg/dL 0.0-11.8 [facility] Urine creatinine measurement (mass/volume)Ordered By: Alfredo Phipps on 01-06-2024 Creatinine (U) [Mass/Vol] 122.00 mg/dL NO RANGE EST. [facility] Urine protein/creatinine mas s ratioOrdered By: Alfredo Phipps on 01-06-2024 Protein/Creatinine (U) [Mass ratio] 156 mg/g CRE 0-200 [facility] CNPNon 12-23-2023 [facility] Telephone ([employer]) -- REGGIE LEÓN ([id number]) 1965 M Date Time Provider Department 12/23/23 [...] 10 mg by mouth once daily. - Atvkr-2-IFL-EPA-Fish Oil 1,000 mg (120 mg-180 mg) cap Take 1 capsule by mouth once daily. - PALIPERIDONE ORAL Take 6 mg by mouth as directed. Problem List As Of Date 12/23/2023 Noted Resolved Pneumonia, Organism Unspecified [J18.9] 01/29/2008 02/11/2010 Acute Gastritis without Mention of Hemorrhage [*05/28/2008 02/11/2010 Nontraumatic rupture of other tendons of foot a*10/08/2009 07/30/2016 [facility]*10/21/2009 01/29/2013 Class: Chronic Bipolar affective disorder (HCC) [F31.9] 10/21/2009 Tobacco abuse [Z72.0] 10/21/2009 07/10/2018 Porokeratosis [Q82.8] 02/03/2010 Gastritis, chronic [K29.50] 02/11/2010 07/10/2018 Erosive esophagitis [K22.10] 02/11/2010 Achilles bursitis or tendinitis [M76.60] 03/20/2010 07/30/2016 Contusion of unspecified site [T14.8XXA] 03/30/2010 07/30/2016 Enthesopathy of unspecified site [M77.9] 11/25/2010 07/10/2018 Other physical therapy [MHM2631] 11/25/2010 07/10/2018 Low HDL (under 40) [E78.6] [...] [R56.9] 08/10/2019 (more content not included)... Normal [facility] 25(OH)D3 SerPl-mCncon 2023 25-hydroxyvitamin D3 [Mass/Vol] 15.6 ng/mL Low 31.0-80.0 [facility] Comment on above: Order Comment: Speci men Type: BLOOD SPECIMEN Ordering Facility: [facility] Address: [address] [place] [address] Result Comment: Clas sification of 25 [place] Vitamin D status: Deficiency/Insufficiency: < or = 30 ng/ml. Sufficiency/Optimal Levels: 31-80 ng/mL Toxicity: > 100 ng/mL. Test performed by chemiluminescent immunoassay. Performed By: #### 5 7021-8 #### [facility] CLIA [id number] [address] [place], [place] [address] [address] [place] CBC W Auto Differential pane l (Bld)on 12-20-2023 Basophils (Bld) [#/Vol] 0.11 10*3/uL High <0.11 k/uL [facility] Basophils/100 WBC (Bld) 1.0 % [facility] Differential cell count method Nom (Bld) Auto [facility] Eosinophils (Bld) [#/Vol] 0.31 10*3/uL <0.46 k/uL [facility] Eosinophils/100 WBC (Bld) 2.8 % [facility] Erythrocyte distribution width (RBC) [Ratio] 12.9 % 11.5 - 15.0 % [facility] Hematocrit (Bld) [Volume fraction] 46.0 % 39.0 - 51.0 % [facility] Hemoglobin (Bld) [Mass/Vol] 15.2 g/dL 13.0 - 17.0 g/dL [facility] Immature granulocytes (Bld) [#/Vol] 0.06 10*3/uL <0.10 k/uL [facility] Immature granulocytes/100 WBC (Bld) 0.5 % [facility] Lymphocytes (Bld) [#/Vol] 1.82 10*3/uL 1.00 - 4.00 k/uL [facility] Lymphocytes/100 WBC (Bld) 16.5 % [facility] MCH (RBC) [Entitic mass] 28.9 pg 26. 0 - 34.0 pg [facility] MCHC (RBC) [Mass/Vol] 33.0 g/dL 30.5 - 36.0 g/dL [facility] MCV (RBC) [Entitic vol] 87.5 fL 80.0 - 100.0 fL [facility] Monocytes (Bld) [#/Vol] 0.88 10*3/uL High <0.87 k/uL [facility] Monocytes/100 [facility] (Bld) 8.0 [facility] ([facility] [#/Vol] 7.82 10*3/uL High 1.45 - 7.50 k/uL [facility] Neutrophils/100 WBC (Bld) 71.2 % [facility] Nucleated RBC (Bld) [#/Vol] <0.01 k/uL [facility] Nucleated RBC/100 WBC (Bld) [Ratio] 0.0 /100 WBC [facility] Platelet mean volume (Bld) [Entitic vol] 9.4 fL 9.0 - 12.7 fL [facility] Platelets (Bld) [#/Vol] 247 10*3/uL 150 - 400 k/uL [facility] RBC (Bld) [#/Vol] 5.26 10*6/uL 4.20 - 6.00 m/uL [facility] WBC (Bld) [#/Vol] 11.00 10*3/uL 3.70 - 11.00 k/uL [facility] Basophils (Bld) [#/Vol] 0.11 10*3/uL High <0.11 [facility] Comment on above: Order Comment: Speci men Type: BLOOD SPECIMEN Ordering Facility: [facility] Address: [address] [place] [address] Performed By: #### 5 7021-8 #### [facility] CLIA [id number] [address] [place] [address] [place] Basophils/100 WBC (Bld) 1.0 % Normal [facility] Comment on above: Order Comment: Speci men Type: BLOOD SPECIMEN Ordering Facility: [facility] Address: [address] [place] [address] Performed By: #### 5 7021-8 #### [facility] CLIA [id number] [address] [place] [address] [place] Differential cell count method Nom (Bld) Auto Normal [facility] Comment on above: Order Comment: Speci men Type: BLOOD SPECIMEN Ordering Facility: [facility] Address: [address] [place] [address] Performed By: #### 5 7021-8 #### [facility] CLIA [id number] [address] [place] [address] [place] Eosinophils (Bld) [#/Vol] 0.31 10*3/uL Normal <0.46 [facility] Comment on above: Order Comment: Speci men Type: BLOOD SPECIMEN Ordering Facility: [facility] Address: [address] [place] [address] Performed By: #### 5 7021-8 #### [facility] CLIA [id number] [address] [place] [address] [place] Eosinophils/100 WBC (Bld) 2.8 % Normal [facility] Comment on above: Order Comment: Speci men Type: BLOOD SPECIMEN Ordering Facility: [facility] Address: [address] [place] [address] Performed By: #### 5 7021-8 #### [facility] CLIA [id number] [address] [place] [address] [place] Erythrocyte distribution width (RBC) [Ratio] 12.9 % Normal 11.5-15.0 [facility] Comment on above: Order Comment: Speci men Type: BLOOD SPECIMEN Ordering Facility: [facility] Address: [address] [place] [address] Performed By: #### 5 7021-8 #### [facility] CLIA [id number] [address] [place] [address] [place] Hematocrit (Bld) [Volume fraction] 46.0 % Normal 39.0-51.0 [facility] Comment on above: Order Comment: Speci men Type: BLOOD SPECIMEN Ordering Facility: [facility] Address: [address] [place] [address] Performed By: #### 5 7021-8 #### [facility] CLIA [id number] [address] [place] [address] [place] Hemoglobin (Bld) [Mass/Vol] 15.2 g/dL Normal 13.0-17.0 [facility] Comment on above: Order Comment: Speci men Type: BLOOD SPECIMEN Ordering Facility: [facility] Address: [address] [place] [address] Performed By: #### 5 7021-8 #### [facility] CLIA [id number] [address] [place] [address] [place] Immature granulocytes (Bld) [#/Vol] 0.06 10*3/uL Normal <0.10 [facility] Comment on above: Order Comment: Speci men Type: BLOOD SPECIMEN Ordering Facility: [facility] Address: [address] [place] [address] Performed By: #### 5 7021-8 #### [facility] CLIA [id number] [address] [place] [address] [place] Immature granulocytes/100 WBC (Bld) 0.5 % Normal [facility] Comment on above: Order Comment: Speci men Type: BLOOD SPECIMEN Ordering Facility: [facility] Address: [address] [place] [address] Performed By: #### 5 7021-8 #### [facility] CLIA [id number] [address] [place] [address] [place] Lymphocytes (Bld) [#/Vol] 1.82 10*3/uL Normal 1.00-4.00 [facility] Comment on above: Order Comment: Speci men Type: BLOOD SPECIMEN Ordering Facility: [facility] Address: [address] [place] [address] Performed By: #### 5 7021-8 #### [facility] CLIA [id number] [address] [place] [address] [place] Lymphocytes/100 WBC (Bld) 16.5 % Normal [facility] Comment on above: Order Comment: Speci men Type: BLOOD SPECIMEN Ordering Facility: [facility] Address: [address] [place] [address] Performed By: #### 5 7021-8 #### [facility] CLIA [id number] [address] [place] [address] [place] MCH (RBC) [Entitic mass] 28.9 pg Normal 26.0-34.0 [facility] Comment on above: Order Comment: Speci men Type: BLOOD SPECIMEN Ordering Facility: [facility] Address: [address] [place] [address] Performed By: #### 5 7021-8 #### [facility] CLIA [id number] [address] [place] [address] [place] MCHC (RBC) [Mass/Vol] 33.0 g/dL Normal 30.5-36.0 [facility] Comment on above: Order Comment: Speci men Type: BLOOD SPECIMEN Ordering Facility: [facility] Address: [address] [place] [address] Performed By: #### 5 7021-8 #### [facility] CLIA [id number] [address] [place] [address] [place] MCV (RBC) [Entitic vol] 87.5 fL Normal 80.0-100.0 [facility] Comment on above: Order Comment: Speci men Type: BLOOD SPECIMEN Ordering Facility: [facility] Address: [address] [place] [address] Performed By: #### 5 7021-8 #### [facility] CLIA [id number] [address] [place] [address] [place] Monocytes (Bld) [#/Vol] 0.88 10*3/uL High <0.87 [facility] Comment on above: Order Comment: Speci men Type: BLOOD SPECIMEN Ordering Facility: [facility] Address: [address] [place] [address] Performed By: #### 5 7021-8 #### [facility] CLIA [id number] [address] [place] [address] [place] Monocytes/100 WBC (Bld) 8.0 % Normal [facility] Comment on above: Order Comment: Speci men Type: BLOOD SPECIMEN Ordering Facility: [facility] Address: [address] [place] [address] Performed By: #### 5 7021-8 #### [facility] CLIA [id number] [address] [place] [address] [place] Neutrophils (Bld) [#/Vol] 7.82 10*3/uL High 1.45-7.50 [facility] Comment on above: Order Comment: Speci men Type: BLOOD SPECIMEN Ordering Facility: [facility] Address: [address] [place] [address] Performed By: #### 5 7021-8 #### [facility] CLIA [id number] [address] [place] [address] [place] Neutrophils/100 WBC (Bld) 71.2 % Normal [facility] Comment on above: Order Comment: Speci men Type: BLOOD SPECIMEN Ordering Facility: [facility] Address: [address] [place] [address] Performed By: #### 5 7021-8 #### [facility] CLIA [id number] [address] [place] [address] [place] Nucleated RBC (Bld) [#/Vol] 10*3/uL Normal <0.01 [facility] Comment on above: Order Comment: Speci men Type: BLOOD SPECIMEN Ordering Facility: [facility] Address: [address] [place] [address] Performed By: #### 5 7021-8 #### [facility] CLIA [id number] [address] [place] [address] [place] Nucleated RBC/100 WBC (Bld) [Ratio] 0.0 /100 WBC Normal [facility] Comment on above: Order Comment: Speci men Type: BLOOD SPECIMEN Ordering Facility: [facility] Address: [address] [place] [address] Performed By: #### 5 7021-8 #### [facility] CLIA [id number] [address] [place] [address] [place] Platelet mean volume (Bld) [Entitic vol] 9.4 fL Normal 9.0-12.7 [facility] Comment on above: Order Comment: Speci men Type: BLOOD SPECIMEN Ordering Facility: [facility] Address: [address] [place] [address] Performed By: #### 5 7021-8 #### [facility] CLIA [id number] [address] [place] [address] [place] Platelets (Bld) [#/Vol] 247 10*3/uL Normal 150-400 [facility] Comment on above: Order Comment: Speci men Type: BLOOD SPECIMEN Ordering Facility: [facility] Address: [address] [place] [address] Performed By: #### 5 7021-8 #### [facility] CLIA [id number] [address] [place] [address] [place] RBC (Bld) [#/Vol] 5.26 10*6/uL Normal 4.20-6.00 [facility] Comment on above: Order Comment: Speci men Type: BLOOD SPECIMEN Ordering Facility: [facility] Address: [address] [place] [address] Performed By: #### 5 7021-8 #### [facility] CLIA [id number] [address] [place] [address] [place] WBC (Bld) [#/Vol] 11.00 10*3/uL Normal 3.70-11.00 [facility] Comment on above: Order Comment: Speci men Type: BLOOD SPECIMEN Ordering Facility: [facility] Address: [address] [place] [address] Performed By: #### 5 7021-8 #### [facility] CLIA [id number] [address] [place] [address] [facility] CNOVon 12-20-2023 CNOV Office Visit (EDIS ) -- REGGIE LEÓN ([id number]) 1965 M Date Time Provider Department 12/20/23 [...] with metformin. Other meds checked against his [place] med list and confirmed as unchanged. He continues to reside in [facility]. He continues to take lithium, neurologic issues have been stable. PAST MEDICAL HISTORY Diagnosis Date Bipolar disorder, unspecified (HCC) age 18 [facility], on lithium; stable on meds Chronic systolic CHF (congestive heart failure) ([facility]) 03/19/2021 Convulsions (HCC) 08/10/2019 Diabetes (HCC) Diabetes mellitus (HCC) Diverticulosis of colon (without mention of hemorrhage) DVT (deep venous thrombosis) ([facility]) 2014 rina-op. on anticoagulants, 2016 Erosive [...] pulm involvement, high dose predinsone and rituximab [id number], started Aug 16, 2016; 07/30. flared spring 2017, induced with pred and rituximab PAST SURGICAL HISTORY Procedure Laterality Date CHOLECYSTECTOMY 2013 [place] [facility] COLONOSCOPY FLX DX W/COLLJ SPEC WHEN PFRMD [...] Take 10 mg by mouth once daily. Wmnuw-8-UIB-EPA-Fish Oil 1,000 mg (120 mg-180 mg) cap [...] at bed (more content not included)... Normal [facility] CYSTATIN Con 12-20-2023 Cystatin C [Mass/Vol] 1.87 mg/L High 0.61 - 0.95 mg/L [facility] Cystatin C eGFR 34 mL/min/1.73m Low >=60 mL/min/1.7 3m [facility] Cystatin C [Mass/Vol] 1.87 mg/L High 0.61-0.95 [facility] Comment on above: Order Comment: Speci men Type: BLOOD SPECIMEN Ordering Facility: [facility] Address: [address] [place] [address] Performed By: #### 5 7021-8 #### [facility] CLIA [id number] [address] [place] [address] [place] CYSTATIN C EGFR 34 mL/min/1.73m??? Low >=60 C [facility] Comment on above: Order Comment: Speci men Type: BLOOD SPECIMEN Ordering Facility: [facility] Address: [address] [place] [address] Result Comment: Pascale mated Glomerular Filtration Rate (eGFR) is calculated using the 2012 CKD-EPI cystatin C equation. This equation utilizes serum cystatin C, sex, and age as parameters. The cystatin C assay has traceable calibration to the ERM-DA471/[facility] reference material. Refer to KDIGO guidelines for clinical interpretation. In patients with unstable renal function, e.g. those with acute kidney injury, the eGFR may not accurately reflect actual GFR. Performed By: #### 5 7021-8 #### [facility] CLIA [id number] [address] [place] [address] [place] Comprehensive metabolic 2000 panelon 12-20-2023 Albumin [Mass/Vol] 4.2 g/dL 3.9 - 4.9 g/dL [facility] ALP [Catalytic activity/Vol] 105 U/L 38 - 113 U/L [facility] ALT [Catalytic activity/Vol] 31 U/L 10 - 54 U/L [facility] Anion gap [Moles/Vol] 15 mmol/L 9 - 18 mmol/L [facility] AST [Catalytic activity/Vol] 19 U/L 14 - 40 U/L [facility] Bilirubin [Mass/Vol] 0.3 mg/dL 0.2 - 1 .3 mg/dL [facility] Calcium [Mass/Vol] 10.2 mg/dL 8.5 - 10. 2 mg/dL [facility] Chloride [Moles/Vol] 103 mmol/L 97 - 10 5 mmol/L [facility] CO2 [Moles/Vol] 24 mmol/L 22 - 30 mmol/L [facility] Creatinine [Mass/Vol] 2.22 mg/dL High 0.73 - 1.22 mg/dL [facility] Estimated Glomerular Filtration Rate 33 mL/min/1.73m Low >=60 mL/min/1.7 3m [facility] Glucose [Mass/Vol] 114 mg/dL High 74 - 99 mg/dL [facility] Potassium [Moles/Vol] 4.2 mmol/L 3.7 - 5.1 mmol/L [facility] Protein [Mass/Vol] 7.0 g/dL 6.3 - 8.0 g/dL [facility] Sodium [Moles/Vol] 142 mmol/L 136 - 144 mmol/L [facility] Urea nitrogen [Mass/Vol] 19 mg/dL 9 - 24 mg/dL [facility] Albumin [Mass/Vol] 4.2 g/dL Normal 3.9-4.[address] [facility] Comment on above: Order Comment: Speci men Type: BLOOD SPECIMEN Ordering Facility: [facility] Address: [address] [place] [address] Performed By: #### 5 7021-8 #### [facility] CLIA [id number] [address] [place] [address] [place] ALP [Catalytic activity/Vol] 105 U/L Normal 38-113 [facility] Comment on above: Order Comment: Speci men Type: BLOOD SPECIMEN Ordering Facility: [facility] Address: [address] [place] [address] Performed By: #### 5 7021-8 #### [facility] CLIA [id number] [address] [place] [address] [place] ALT [Catalytic activity/Vol] 31 U/L Normal 10-54 [facility] Comment on above: Order Comment: Speci men Type: BLOOD SPECIMEN Ordering Facility: [facility] Address: [address] [place] [address] Performed By: #### 5 7021-8 #### [facility] CLIA [id number] [address] [place] [address] [place] Anion gap [Moles/Vol] 15 mmol/L Normal 9-18 [facility] Comment on above: Order Comment: Speci men Type: BLOOD SPECIMEN Ordering Facility: [facility] Address: [address] [place] [address] Performed By: #### 5 7021-8 #### [facility] CLIA [id number] [address] [place] [address] [place] AST [Catalytic activity/Vol] 19 U/L Normal 14-40 [facility] Comment on above: Order Comment: Speci men Type: BLOOD SPECIMEN Ordering Facility: [facility] Address: [address] [place] [address] Performed By: #### 5 7021-8 #### [facility] CLIA [id number] [address] [place] [address] [place] Bilirubin [Mass/Vol] 0.3 mg/dL Normal 0.2-1.3 [facility] Comment on above: Order Comment: Speci men Type: BLOOD SPECIMEN Ordering Facility: [facility] Address: [address] [place] [address] Performed By: #### 5 7021-8 #### [facility] CLIA [id number] [address] [place] [address] [place] Calcium [Mass/Vol] 10.2 mg/dL Normal 8.5-10.[address] [facility] Comment on above: Order Comment: Speci men Type: BLOOD SPECIMEN Ordering Facility: [facility] Address: [address] [place] [address] Performed By: #### 5 7021-8 #### [facility] CLIA [id number] [address] [place] [address] [place] Chloride [Moles/Vol] 103 mmol/L Normal 97-105 [facility] Comment on above: Order Comment: Speci men Type: BLOOD SPECIMEN Ordering Facility: [facility] Address: [address] [place] [address] Performed By: #### 5 7021-8 #### [facility] CLIA [id number] [address] [place] [address] [place] CO2 [Moles/Vol] 24 mmol/L Normal 22-30 [facility] Comment on above: Order Comment: Speci men Type: BLOOD SPECIMEN Ordering Facility: [facility] Address: [address] [place] [address] Performed By: #### 5 7021-8 #### [facility] CLIA [id number] [address] [place] [address] [place] Creatinine [Mass/Vol] 2.22 mg/dL High 0.73-1.22 [facility] Comment on above: Order Comment: Speci men Type: BLOOD SPECIMEN Ordering Facility: [facility] Address: [address] [place] [address] Performed By: #### 5 7021-8 #### [facility] CLIA [id number] [address] [place] [address] [place] Creatinine and Glomerular filtration rate.predicted panel (S/P/Bld) 33 mL/min/1.73m??? Low >=60 [facility] Comment on above: Order Comment: Speci men Type: BLOOD SPECIMEN Ordering Facility: [facility] Address: [address] [place] [address] Result Comment: Pascale mated Glomerular Filtration Rate [...] GFR. Performed By: #### 5 7021-8 #### [facility] CLIA [id number] [address] [place] [address] [place] Glucose [Mass/Vol] 114 mg/dL High 74-[address] [facility] Comment on above: Order Comment: Speci men Type: BLOOD SPECIMEN Ordering Facility: [facility] Address: [address] [place] [address] Result Comment: The [place] [employer] (ADA) provides guidance for cutoff [...] Standards of Medical Care in Diabetes 2016, [place] [employer]. Diabetes Care. 2016.39(Suppl 1). Performed By: #### 5 7021-8 #### [facility] CLIA [id number] [address] [place] [address] [place] Potassium [Moles/Vol] 4.2 mmol/L Normal 3.7-5.1 [facility] Comment on above: Order Comment: Peewee zuniga Type: BLOOD SPECIMEN Ordering Facility: [facility] Address: [address] [place] [address] Performed By: #### 5 7021-8 #### [facility] CLIA [id number] [address] [place] [address] [place] Protein [Mass/Vol] 7.0 g/dL Normal 6.3-8.[address] [facility] Comment on above: Order Comment: Peewee zuniga Type: BLOOD SPECIMEN Ordering Facility: [facility] Address: [address] [place] [address] Performed By: #### 5 7021-8 #### [facility] CLIA [id number] [address] [place] [address] [place] Sodium [Moles/Vol] 142 mmol/L Normal 136-[address] [facility] Comment on above: Order Comment: Derejei men Type: BLOOD SPECIMEN Ordering Facility: [facility] Address: [address] [place], [place] [address] Performed By: #### 5 7021-8 #### [facility] CLIA [id number] [address] [place] [address] [place] Urea nitrogen [Mass/Vol] 19 mg/dL Normal 9-24 [facility] Comment on above: Order Comment: Speci men Type: BLOOD SPECIMEN Ordering Facility: [facility] Address: [address] [place] [address] Performed By: #### 5 7021-8 #### [facility] CLIA [id number] [address] [place] [address] [place] LIPID PANEL, NONFASTINGon Cholesterol [Mass/Vol] 139 mg/dL <200 mg/dL [facility] HDL Cholesterol, Nonfasting 32 mg/dL Low >39 mg/dL [facility] LDL Cholesterol, Nonfasting 51 mg/dL <100 mg/dL [facility] LDL/HDL Ratio, Nonfasting 1.59 mg/dL <2.54 mg/dL [facility] Non HDL Cholesterol, Nonfasting 107 mg/dL <130 mg/dL [facility] Total Chol/HDL Ratio, Nonfasting 4.34 mg/dL <5.10 mg/dL [facility] Triglycerides, Nonfasting 280 mg/dL High <150 mg/dL [facility] VLDL Cholesterol, Nonfasting 56 mg/dL High <30 mg/dL [facility] Cholesterol [Mass/Vol] 139 mg/dL Normal <200 [facility] Comment on above: Order Comment: Speci men Type: BLOOD SPECIMEN Ordering Facility: [facility] Address: [address] [place], [place] [address] Result Comment: <200 mg/dL, Desirable 200-239 mg/dL, Borderline high >239 mg/dL, High Performed By: #### 5 7021-8 #### [facility] CLIA [id number] [address] [place] [address] [place] HDL CHOLESTEROL, NF 32 mg/dL Low >39 [facility] Comment on above: Order Comment: Speci men Type: BLOOD SPECIMEN Ordering Facility: [facility] Address: [address] [place] [address] Result Comment: 40-5 9 mg/dL, Acceptable >59 mg/dL, High: Negative risk factor for coronary heart disease <40 mg/dL, Low: Positive risk factor for coronary heart disease Performed By: #### 5 7021-8 #### [facility] CLIA [id number] [address] [place], [place] [address] [place] [address] [place] LDL CHOLESTEROL, NF 51 mg/dL Normal <100 [facility] Comment on above: Order Comment: Peewee zuniga Type: BLOOD SPECIMEN Ordering Facility: [facility] Address: [address] [place] [address] Result Comment: <100 mg/dL, Optimal 100-129 mg/dL, Near optimal/above optimal 130-159 mg/dL, Borderline high 160-189 mg/dL, High >189 mg/dL, Very high Secondary prevention optimal LDL Cholesterol levels are recommended to be < 70 mg/dL Performed By: #### 5 7021-8 #### [facility] CLIA [id number] [address] [place] [address] [place] LDL/HDL RATIO, NF 1.59 mg/dL Normal <2.54 [facility] Comment on above: Order Comment: Peewee zuniga Type: BLOOD SPECIMEN Ordering Facility: [facility] Address: [address] [place] [address] Result Comment: Terri saleh: 1. National Cholesterol Education Program ATP III Guideline At-A-Glance Quick Desk Reference: National Heart, Lung, and Blood [place]. National Institutes of Health. 2001: NIH Publication No. 01-3305. 2. An International Atherosclerosis Society position paper: global recommendations for the management of dyslipidemia: executive summary, Atherosclerosis. 2014: 232(2):410-413. Performed By: #### 5 7021-8 #### [facility] CLIA [id number] [facility] [place] [address] [place] NON HDL CHOL, NF 107 mg/dL Normal <130 [facility] Comment on above: Order Comment: Speci men Type: BLOOD SPECIMEN Ordering Facility: [facility] Address: [address] [place] [address] Result Comment: <130 mg/dL, Optimal 130-159 mg/dL, Near optimal/above optimal 160-189 mg/dL, Borderline high 190-219 mg/dL, High >219 mg/dL, Very high Secondary prevention optimal non HDL Cholesterol levels are recommended to be <100 mg/dL Performed By: #### 5 7021-8 #### [facility] CLIA [id number] [address] [place] [address] [place] T CHOL/HDL RATIO NF 4.34 mg/dL Normal <5.10 [facility] Comment on above: Order Comment: Speci men Type: BLOOD SPECIMEN Ordering Facility: [facility] Address: [address] [place] [address] Performed By: #### 5 7021-8 #### [facility] CLIA [id number] [address] [place] [address] [place] TRIGLYCERIDES, NF 280 mg/dL High <150 [facility] Comment on above: Order Comment: Speci men Type: BLOOD SPECIMEN Ordering Facility: [facility] Address: [address] [place] [address] Result Comment: <150 mg/dL, Normal 150-199 mg/dL, Borderline high 200-499 mg/dL, High >499 mg/dL, Very high Performed By: #### 5 7021-8 #### [facility] CLIA [id number] [address] [place] [address] [place] VLDL CHOLESTEROL, NF 56 mg/dL High <30 [facility] Comment on above: Order Comment: Speci men Type: BLOOD SPECIMEN Ordering Facility: [facility] Address: [address] [place] [address] Performed By: #### 5 7021-8 #### [facility] CLIA [id number] [address] [place] [address] [place] PHOSPHORUS INORGANICon 02-06 -2024 Phosphate [Mass/Vol] 2.1 mg/dL Low 2.7 - 4 .8 mg/dL [facility] PROTEIN CREATININE RATIOon 0 12-20-2023 Protein/Creatinine (U) [Mass ratio] 0.07 mg/mg <0.15 mg/mg [facility] PTH INTACT BLDon 12-20-2023 Parathyrin.intact [Mass/Vol] 121 pg/mL High 15 - 65 pg/mL [facility] PTH-Intact SerPl-mCncon 02-0 Parathyrin.intact [Mass/Vol] 121 pg/mL High 15-65 [facility] Comment on above: Order Comment: Speci men Type: BLOOD SPECIMEN Ordering Facility: [facility] Address: [address] [place] [address] Performed By: #### 5 7021-8 #### [facility] CLIA [id number] [address] [place] [address] [place] Phosphate SerPl-mCncon 12-20 Phosphate [Mass/Vol] 2.1 mg/dL Low 2.7-4.8 [facility] Comment on above: Order Comment: Speci men Type: BLOOD SPECIMEN Ordering Facility: [facility] Address: [address] [place] [address] Performed By: #### 5 7021-8 #### [facility] CLIA [id number] [address] [place] [address] [place] Prot/Creat Uron 12-20-2023 Protein/Creatinine (U) [Mass ratio] 0.07 mg/mg Normal <0.15 [facility] Comment on above: Order Comment: Speci men Type: BLOOD SPECIMEN Ordering Facility: [facility] Address: [address] [place] [address] Result Comment: Adul t Proteinuria Categories: <0.15 mg/mg is considered normal to mildly increased 0.15 - 0.50 mg/mg is considered moderately increased >0.50 mg/mg is considered severely increased KDIGO. (2013). KDIGO 2012 Clinical Practice Guideline for the Evaluation and Management of Chronic Kidney Disease. Official Journal of the International Society of Nephrology, 3(1), 1-150. Performed By: #### 5 7021-8 #### [facility] CLIA [id number] [address] [place] [address] [place] Protein/Creatinine (U) [Mass ratio]on 12-20-2023 Creatinine (U) [Mass/Vol] 103.8 mg/dL 20.0 - 300.0 mg/dL [facility] Protein (U) [Mass/Vol] 7 mg/dL 0 - 2 0 mg/dL [facility] Creatinine (U) [Mass/Vol] 103.8 mg/dL Normal 20.0-300.0 [facility] Comment on above: Order Comment: Speci men Type: BLOOD SPECIMEN Ordering Facility: [facility] Address: [address] [place] [address] Performed By: #### 5 7021-8 #### [facility] CLIA [id number] [address] [place] [address] [place] Protein (U) [Mass/Vol] 7 mg/dL Normal 0-20 [facility] Comment on above: Order Comment: Speci men Type: BLOOD SPECIMEN Ordering Facility: [facility] Address: [address] [place] [address] Performed By: #### 5 7021-8 #### [facility] CLIA [id number] [address] [place] [address] [place] URINALYSIS, REFLEX MICROSCOP ICon 12-20-2023 Bilirubin Ql (U) Negative Negative [facility] Clarity (Unsp spec) Clear Clear [facility] Color (U) Light Yellow Yellow [facility] Glucose Test strip (U) [Mass/Vol] Negative Trace, Negative [facility] Hemoglobin Ql (U) Negative Negative, Trace [facility] Ketones Ql (U) Negative Negative, Trace [facility] Leukocyte esterase Test strip Ql (U) Negative Negative, 25 Mary/uL [facility] Nitrite Ql (U) Negative Negative [facility] pH (U) 6.0 [pH] 5.0 - 8.0 [facility] Protein (U) [Mass/Vol] Negative Trace , Negative [facility] Specific gravity (U) [Rel density] 1.010 1.005 - 1.030 [facility] Urobilinogen Ql (U) Normal Normal [facility] Bilirubin Ql (U) Negative Normal [facility] Comment on above: Order Comment: Speci men Type: URINE SPECIMEN Ordering Facility: [facility] Address: [address] [place] [address] Performed By: #### L [id number] #### [facility] CLIA [id number] [address] [place] [address] [place] Clarity (Unsp spec) Clear Normal Clear [facility] Comment on above: Order Comment: Speci men Type: URINE SPECIMEN Ordering Facility: [facility] Address: [address] [place] [address] Performed By: #### L [id number] #### [facility] CLIA [id number] [address] [place] [address] [place] Color (U) Light Yellow Normal Yellow [facility] Comment on above: Order Comment: Speci men Type: URINE SPECIMEN Ordering Facility: [facility] Address: [address] [place] [address] Performed By: #### L [id number] #### [facility] CLIA [id number] [address] [place] [address] [place] Glucose Test strip (U) [Mass/Vol] Negative Normal Trace, Negative [facility] Comment on above: Order Comment: Speci men Type: URINE SPECIMEN Ordering Facility: [facility] Address: [address] [place] [address] Performed By: #### L [id number] #### [facility] CLIA [id number] [address] [place] [address] [place] Hemoglobin Ql (U) Negative Normal Negative, Trace [facility] Comment on above: Order Comment: Speci men Type: URINE SPECIMEN Ordering Facility: [facility] Address: [address] [place] [address] Performed By: #### L [id number] #### [facility] CLIA [id number] [address] [place] [address] [place] Ketones Ql (U) Negative Normal Negative, Trace [facility] Comment on above: Order Comment: Speci men Type: URINE SPECIMEN Ordering Facility: [facility] Address: [address] [place] [address] Performed By: #### L [id number] #### [facility] CLIA [id number] [address] [place] [address] [place] Leukocyte esterase Test strip Ql (U) Negative Normal Negative, 25 Mary/uL [facility] Comment on above: Order Comment: Speci men Type: URINE SPECIMEN Ordering Facility: [facility] Address: [address] [place] [address] Performed By: #### L [id number] #### [facility] CLIA [id number] [address] [place] [address] [place] Nitrite Ql (U) Negative Normal Negative [facility] Comment on above: Order Comment: Speci men Type: URINE SPECIMEN Ordering Facility: [facility] Address: [address] [place] [address] Performed By: #### L [id number] #### [facility] CLIA [id number] [address] [place] [address] [place] pH (U) 6.0 [pH] Normal 5.0-8.0 [facility] Comment on above: Order Comment: Speci men Type: URINE SPECIMEN Ordering Facility: [facility] Address: [address] [place] [address] Performed By: #### L [id number] #### [facility] CLIA [id number] [address] [place] [address] [place] Protein (U) [Mass/Vol] Negative Normal Trace , Negative [facility] Comment on above: Order Comment: Speci men Type: URINE SPECIMEN Ordering Facility: [facility] Address: [address] [place] [address] Performed By: #### L [id number] #### [facility] CLIA [id number] [address] [place] [address] [place] Specific gravity (U) [Rel density] 1.010 Normal 1.005-1.03 0 [facility] Comment on above: Order Comment: Speci men Type: URINE SPECIMEN Ordering Facility: [facility] Address: [address] [place] [address] Performed By: #### L [id number] #### [facility] CLIA [id number] [address] [place] [address] [place] Urobilinogen Ql (U) Normal Normal Normal [facility] Comment on above: Order Comment: Speci men Type: URINE SPECIMEN Ordering Facility: [facility] Address: [address] [place] [address] Performed By: #### L [id number] #### [facility] CLIA [id number] [address] [place] [address] [place] Absolute lymphocyte countOrd ered By: Alfredo Phipps on 12-09-2023 Lymphocytes Auto (Unsp spec) [#/Vol] 2.24 10*3/uL 0.83-4.51 [facility] Automated lymphocyte count a s percentage of total leukocytesOrdered By: Alfredo Phipps on 12-09-2023 Lymphocytes/100 WBC Auto (Unsp spec) 23.2 % 19-41 [facility] Basophil percentageOrdered B y: Alfredo Phipps on 12-09-2023 Basophil percentage 3.8 mg/dL 2.5-4.9 [facility] Basophils/100 WBC (Bld) 1.0 % 0-1 [facility] Chloride [Moles/Vol] 110 mmol/L 98-[address] [facility] Eosinophils/100 WBC (Bld) 3.9 % 0-5 [facility] Glucose [Mass/Vol] 129 mg/dL 74-106 [facility] Comment on above: Fasting Glucose resu lt greater than or equal to 126 mg/dL suggests DIABETES MELLITUS per A.D.A. criteria. Hemoglobin (Bld) [Mass/Vol] 13.9 g/dL 13.0-16.5 [facility] Monocytes/100 WBC (Bld) 9.3 % 0-10 [facility] Neutrophils (Bld) [#/Vol] 6.0 10*3/uL 2.0-7.7 [facility] Neutrophils/100 WBC (Bld) 62.2 % 47-70 [facility] Potassium [Moles/Vol] 3.5 mmol/L 3.5-5.1 [facility] Sodium [Moles/Vol] 138 mmol/L 136-145 [facility] WBC (Bld) [#/Vol] 9.7 10*3/uL 4.4-11.0 [facility] Determination of erythrocyte mean corpuscular volume (MCV)Ordered By: Alfredo Phipps on 12-09-2023 MCV (RBC) [Entitic vol] 90.2 fL 80-94 [facility] Erythrocyte distribution wid th ratioOrdered By: Alfredo Phipps on 12-09-2023 Erythrocyte distribution width (RBC) [Ratio] 13.1 % 11.6-14.6 [facility] Erythrocyte distribution wid th standard deviationOrdered By: Alfredo Phipps on 12-09-2023 Erythrocyte distribution width (RBC) [Entitic vol] 43.2 fL 35.1-43.9 [facility] Hematocrit Auto (Bld) [Volum e fraction]Ordered By: Alfredo Phipps on 12-09-2023 Hematocrit (Bld) [Volume fraction] 43.2 % 40-54 [facility] Immature granulocytes/100 WB C Auto (Bld)Ordered By: Alfredo Phipps on 12-09-2023 Immature granulocytes/100 WBC (Bld) 0.400 % 0.0-0.9 [facility] Comment on above: IG% - Immature Granu locytes (promyelocytes, myelocytes and metamyelocytes) > 1% indicates that a LEFT SHIFT is Present. Laboratory - Chemistry and C hemistry - challengeOrdered By: Alfredo Phipps on 12-09-2023 CO2 [Moles/Vol] 21.0 mmol/L 21.0-32.0 [facility] Urea nitrogen/Creatinine [Mass ratio] 7.4 mg/mg 10-20 [facility] Laboratory - Hematology and Cell countsOrdered By: Alfredo Phipps on 12-09-2023 MCH (RBC) [Entitic mass] 29.0 pg 27.0-32.0 [facility] MCHC (RBC) [Mass/Vol] 32.2 g/dL 32-36 [facility] Nucleated RBC/100 WBC (Bld) [Ratio] 0 % 0-5 [facility] Platelets (Bld) [#/Vol] 235 10*3/uL 150-450 [facility] No Panel InformationOrdered By: Alfredo Phipps on 12-09-2023 Estimated GFR (MDRD) Amer 44 mL/min >60 [facility] Comment on above: GFR Calc Estimated GFR (MDRD) Non-Af Amer 36 mL/min >60 [facility] Comment on above: Non- GFR Calc [place] Level 0.40 mmol/L 0.60-1.20 [facility] Platelet mean volume Naresh-Ec ker (Bld) [Entitic vol]Ordered By: Alfredo Phipps on 12-09-2023 Platelet mean volume (Bld) [Entitic vol] 9.5 fL 6.2-12.0 [facility] RBC Auto (Bld) [#/Vol]Ordere d By: Alfredo Phipps on 12-09-2023 RBC (Bld) [#/Vol] 4.79 10*6/uL 4.6-6.2 [facility] Serum or plasma calcium you urement (mass/volume)Ordered By: Alfredo Phipps on 12-09-2023 Calcium [Mass/Vol] 9.3 mg/dL 8.5-10.1 [facility] Serum or plasma creatinine m easurement (mass/volume)Ordered By: Alfredo Phipps on 12-09-2023 Creatinine [Mass/Vol] 2.02 mg/dL 0.70-1.30 [facility] Comment on above: The validity of the calculated GFR & GFRAA in patients over 70 years has not been determined. Clinical correlation is essential. Serum or plasma urea nitroge n measurement (mass/volume)Ordered By: Alfredo Phipps on 12-09-2023 Urea nitrogen [Mass/Vol] 15 mg/dL 7-18 [facility] Thin prep Papanicolaou smear with manual screeningOrdered By: Alfredo Phipps on 12-09-2023 Thin prep Papanicolaou smear with manual screening 3.2 g/dL 3.2-5.0 [facility] Urine creatinine measurement (mass/volume)Ordered By: Adam Ferraro on 11-16-2023 Creatinine (U) [Mass/Vol] 178.00 mg/dL NO RANGE EST. [facility] Urine protein measurement (m ass/volume)Ordered By: Adam Ferraro on 11-16-2023 Protein (U) [Mass/Vol] 28.7 mg/dL 0.0-11.8 [facility] Urine protein/creatinine mas s ratioOrdered By: Adam Ferraro on 11-16-2023 Protein/Creatinine (U) [Mass ratio] 161 mg/g CRE 0-200 [facility] Absolute lymphocyte countOrd ered By: Adam Ferraro on 11-11-2023 Lymphocytes Auto (Unsp spec) [#/Vol] 3.10 10*3/uL 0.83-4.51 [facility] Basophil percentageOrdered B y: Adam Ferraro on 11-11-2023 Basophil percentage 3.6 mg/dL 2.5-4.9 [facility] Basophils/100 WBC (Bld) 0.8 % 0-1 [facility] Chloride [Moles/Vol] 108 mmol/L 98-[address] [facility] Eosinophils/100 WBC (Bld) 3.4 % 0-5 [facility] Glucose [Mass/Vol] 120 mg/dL 74-106 [facility] Comment on above: Fasting Glucose resu lt from 100 to 125 mg/dL suggests IMPAIRED HOMEOSTASIS per A.D.A. criteria. Neutrophils (Bld) [#/Vol] 7.1 10*3/uL 2.0-7.7 [facility] Neutrophils/100 WBC (Bld) 61.0 % 47-70 [facility] Potassium [Moles/Vol] 3.6 mmol/L 3.5-5.1 [facility] Sodium [Moles/Vol] 140 mmol/L 136-145 [facility] WBC (Bld) [#/Vol] 11.6 10*3/uL 4.4-11.0 [facility] Blood erythrocytes count (nu mber/volume)Ordered By: Adam Ferraro on 11-11-2023 RBC (Bld) [#/Vol] 4.98 10*6/uL 4.6-6.2 [facility] Blood hemoglobin measurement (mass/volume)Ordered By: Adam Ferraro on 11-11-2023 Hemoglobin (Bld) [Mass/Vol] 14.4 g/dL 13.0-16.5 [facility] Blood lymphocytes/100 leukoc ytesOrdered By: Adam Ferraro on 11-11-2023 Lymphocytes/100 WBC (Bld) 26.7 % 19-41 [facility] Blood monocytes/100 leukocyt esOrdered By: Adam Ferraro on 11-11-2023 Monocytes/100 WBC (Bld) 7.3 % 0-10 [facility] Blood platelet mean volumeOr dered By: Adam Ferraro on 11-11-2023 Platelet mean volume (Bld) [Entitic vol] 9.4 fL 6.2-12.0 [facility] Determination of erythrocyte mean corpuscular volume (MCV)Ordered By: Adam Ferraro on 11-11-2023 MCV (RBC) [Entitic vol] 89.8 fL 80-94 [facility] Hematocrit Auto (Bld) [Volum e fraction]Ordered By: Adam Ferraro on 11-11-2023 Hematocrit (Bld) [Volume fraction] 44.7 % 40-54 [facility] Laboratory - Chemistry and C hemistry - challengeOrdered By: Adam Ferraro on 11-11-2023 CO2 [Moles/Vol] 24.0 mmol/L 21.0-32.0 [facility] Urea nitrogen/Creatinine [Mass ratio] 7.8 mg/mg 10-20 [facility] Laboratory - Hematology and Cell countsOrdered By: Adam Ferraro on 11-11-2023 Erythrocyte distribution width (RBC) [Entitic vol] 42.7 fL 35.1-43.9 [facility] Erythrocyte distribution width (RBC) [Ratio] 13.1 % 11.6-14.6 [facility] Immature granulocytes/100 WBC (Bld) 0.800 % 0.0-0.9 [facility] Comment on above: IG% - Immature Granu locytes (promyelocytes, myelocytes and metamyelocytes) > 1% indicates that a LEFT SHIFT is Present. MCH (RBC) [Entitic mass] 28.9 pg 27.0-32.0 [facility] Nucleated RBC/100 WBC (Bld) [Ratio] 0 % 0-5 [facility] MCHC Auto (RBC) [Mass/Vol]Or dered By: Adam Ferraro on 11-11-2023 MCHC (RBC) [Mass/Vol] 32.2 g/dL 32-36 [facility] No Panel InformationOrdered By: Adam Ferraro on 11-11-2023 Estimated GFR (MDRD) Amer 37 mL/min >60 [facility] Comment on above: GFR Calc Estimated GFR (MDRD) Non-Af Amer 31 mL/min >60 [facility] Comment on above: Non- GFR Calc [place] Level 0.60 mmol/L 0.60-1.20 [facility] Platelets bldOrdered By: Benoit Ferraro on 11-11-2023 Platelets (Bld) [#/Vol] 252 10*3/uL 150-450 [facility] Serum or plasma albumin you urement (mass/volume)Ordered By: Adam Ferraro on 11-11-2023 Albumin [Mass/Vol] 3.1 g/dL 3.2-5.0 [facility] Serum or plasma calcium you urement (mass/volume)Ordered By: Adam Ferraro on 11-11-2023 Calcium [Mass/Vol] 8.9 mg/dL 8.5-10.1 [facility] Serum or plasma creatinine m easurement (mass/volume)Ordered By: Adam Ferraro on 11-11-2023 Creatinine [Mass/Vol] 2.31 mg/dL 0.70-1.30 [facility] Comment on above: The validity of the calculated GFR & GFRAA in patients over 70 years has not been determined. Clinical correlation is essential. Serum or plasma urea nitroge n measurement (mass/volume)Ordered By: Adam Ferraro on 11-11-2023 Urea nitrogen [Mass/Vol] 18 mg/dL 7-18 [facility] Serum or plasma uric acid me asurement (mass/volume)Ordered By: Adam Ferraro on 10-27-2023 Urate [Mass/Vol] 8.1 mg/dL 3.5-7.2 [facility] Comment on above: The drugs N-Acetylcy steine and Metamizole may falsely depress this assay. Absolute lymphocyte countOrd ered By: Alfredo Phipps on 10-14-2023 Lymphocytes Auto (Unsp spec) [#/Vol] 1.52 10*3/uL 0.83-4.51 [facility] Basophil percentageOrdered B y: Alfredo Phipps on 10-14-2023 Basophil percentage 3.2 mg/dL 2.5-4.9 [facility] Basophils/100 WBC (Bld) 1.2 % 0-1 [facility] Chloride [Moles/Vol] 110 mmol/L 98-[address] [facility] Eosinophils/100 WBC (Bld) 5.0 % 0-5 [facility] Glucose [Mass/Vol] 151 mg/dL 74-106 [facility] Comment on above: Fasting Glucose resu lt greater than or equal to 126 mg/dL suggests DIABETES MELLITUS per A.D.A. criteria. Neutrophils (Bld) [#/Vol] 6.6 10*3/uL 2.0-7.7 [facility] Neutrophils/100 WBC (Bld) 68.8 % 47-70 [facility] Potassium [Moles/Vol] 3.8 mmol/L 3.5-5.1 [facility] Sodium [Moles/Vol] 141 mmol/L 136-145 [facility] WBC (Bld) [#/Vol] 9.5 10*3/uL 4.4-11.0 [facility] Blood erythrocytes count (nu mber/volume)Ordered By: Alfredo Phipps on 10-14-2023 RBC (Bld) [#/Vol] 4.51 10*6/uL 4.6-6.2 [facility] Blood hemoglobin measurement (mass/volume)Ordered By: Alfredo Phipps on 10-14-2023 Hemoglobin (Bld) [Mass/Vol] 13.0 g/dL 13.0-16.5 [facility] Blood lymphocytes/100 leukoc ytesOrdered By: Alfredo Phipps on 10-14-2023 Lymphocytes/100 WBC (Bld) 15.9 % 19-41 [facility] Blood monocytes/100 leukocyt esOrdered By: Alfredo Phipps on 10-14-2023 Monocytes/100 WBC (Bld) 8.3 % 0-10 [facility] Blood platelet mean volumeOr dered By: Alfredo Phipps on 10-14-2023 Platelet mean volume (Bld) [Entitic vol] 9.7 fL 6.2-12.0 [facility] Determination of erythrocyte mean corpuscular volume (MCV)Ordered By: Alfredo Phipps on 10-14-2023 MCV (RBC) [Entitic vol] 90.2 fL 80-94 [facility] Hematocrit Auto (Bld) [Volum e fraction]Ordered By: Alfredo Phipps on 10-14-2023 Hematocrit (Bld) [Volume fraction] 40.7 % 40-54 [facility] Laboratory - Chemistry and C hemistry - challengeOrdered By: Alfredo Phipps on 10-14-2023 CO2 [Moles/Vol] 26.0 mmol/L 21.0-32.0 [facility] Urea nitrogen/Creatinine [Mass ratio] 7.5 mg/mg 10-20 [facility] Laboratory - Hematology and Cell countsOrdered By: Alfredo Phipps on 10-14-2023 Erythrocyte distribution width (RBC) [Entitic vol] 43.6 fL 35.1-43.9 [facility] Erythrocyte distribution width (RBC) [Ratio] 13.2 % 11.6-14.6 [facility] Immature granulocytes/100 WBC (Bld) 0.800 % 0.0-0.9 [facility] Comment on above: IG% - Immature Granu locytes (promyelocytes, myelocytes and metamyelocytes) > 1% indicates that a LEFT SHIFT is Present. MCH (RBC) [Entitic mass] 28.8 pg 27.0-32.0 [facility] Nucleated RBC/100 WBC (Bld) [Ratio] 0 % 0-5 [facility] MCHC Auto (RBC) [Mass/Vol]Or dered By: Alfredo Phipps on 10-14-2023 MCHC (RBC) [Mass/Vol] 31.9 g/dL 32-36 [facility] No Panel InformationOrdered By: Alfredo Phipps on 10-14-2023 Estimated GFR (MDRD) Amer 41 mL/min >60 [facility] Comment on above: GFR Calc Estimated GFR (MDRD) Non-Af Amer 34 mL/min >60 [facility] Comment on above: Non- GFR Calc [place] Level 0.50 mmol/L 0.60-1.20 [facility] Platelets bldOrdered By: Jennifer Phipps on 10-14-2023 Platelets (Bld) [#/Vol] 224 10*3/uL 150-450 [facility] Serum or plasma albumin you urement (mass/volume)Ordered By: Alfredo Phipps on 10-14-2023 Albumin [Mass/Vol] 2.9 g/dL 3.2-5.0 [facility] Serum or plasma calcium you urement (mass/volume)Ordered By: Alfredo Phipps on 10-14-2023 Calcium [Mass/Vol] 8.5 mg/dL 8.5-10.1 [facility] Serum or plasma creatinine m easurement (mass/volume)Ordered By: Alfredo Phipps on 10-14-2023 Creatinine [Mass/Vol] 2.12 mg/dL 0.70-1.30 [facility] Comment on above: The validity of the calculated GFR & GFRAA in patients over 70 years has not been determined. Clinical correlation is essential. Serum or plasma urea nitroge n measurement (mass/volume)Ordered By: Alfredo Phipps on 10-14-2023 Urea nitrogen [Mass/Vol] 16 mg/dL 7-18 [facility] Urine creatinine measurement (mass/volume)Ordered By: Alfredo Phipps on 10-14-2023 Creatinine (U) [Mass/Vol] 195.00 mg/dL NO RANGE EST. [facility] Urine protein measurement (m ass/volume)Ordered By: Alfredo Phipps on 10-14-2023 Protein (U) [Mass/Vol] 23.4 mg/dL 0.0-11.8 [facility] Urine protein/creatinine mas s ratioOrdered By: Alfredo Phipps on 12-01-2023 Protein/Creatinine (U) [Mass ratio] 120 mg/g CRE 0-200 [facility] Serum or plasma uric acid me asurement (mass/volume)Ordered By: Adam Ferraro on 09-27-2023 Urate [Mass/Vol] 7.3 mg/dL 3.5-7.2 [facility] Comment on above: The drugs N-Acetylcy steine and Metamizole may falsely depress this assay. Absolute lymphocyte countOrd ered By: Alfredo Phipps on 09-16-2023 Lymphocytes Auto (Unsp spec) [#/Vol] 1.78 10*3/uL 0.83-4.51 [facility] Basophil percentageOrdered B y: Alfredo Phipps on 09-16-2023 Basophil percentage 4.3 mg/dL 2.5-4.9 [facility] Basophils/100 WBC (Bld) 1.0 % 0-1 [facility] Chloride [Moles/Vol] 109 mmol/L 98-[address] [facility] Eosinophils/100 WBC (Bld) 4.4 % 0-5 [facility] Glucose [Mass/Vol] 143 mg/dL 74-106 [facility] Comment on above: Fasting Glucose resu lt greater than or equal to 126 mg/dL suggests DIABETES MELLITUS per A.D.A. criteria. Neutrophils (Bld) [#/Vol] 6.3 10*3/uL 2.0-7.7 [facility] Neutrophils/100 WBC (Bld) 67.0 % 47-70 [facility] Potassium [Moles/Vol] 4.1 mmol/L 3.5-5.1 [facility] Sodium [Moles/Vol] 139 mmol/L 136-145 [facility] WBC (Bld) [#/Vol] 9.4 10*3/uL 4.4-11.0 [facility] Blood erythrocytes count (nu mber/volume)Ordered By: Alfredo Phipps on 09-16-2023 RBC (Bld) [#/Vol] 4.63 10*6/uL 4.6-6.2 [facility] Blood hemoglobin measurement (mass/volume)Ordered By: Alfredo Phipps on 09-16-2023 Hemoglobin (Bld) [Mass/Vol] 13.4 g/dL 13.0-16.5 [facility] Blood lymphocytes/100 leukoc ytesOrdered By: Alfredo Phipps on 09-16-2023 Lymphocytes/100 WBC (Bld) 19.0 % 19-41 [facility] Blood monocytes/100 leukocyt esOrdered By: Alfredo Phipps on 09-16-2023 Monocytes/100 WBC (Bld) 8.3 % 0-10 [facility] Blood platelet mean volumeOr dered By: Alfredo Phipps on 09-16-2023 Platelet mean volume (Bld) [Entitic vol] 9.6 fL 6.2-12.0 [facility] Determination of erythrocyte mean corpuscular volume (MCV)Ordered By: Alfredo Phipps on 09-16-2023 MCV (RBC) [Entitic vol] 90.5 fL 80-94 [facility] Hematocrit Auto (Bld) [Volum e fraction]Ordered By: Alfredo Phipps on 09-16-2023 Hematocrit (Bld) [Volume fraction] 41.9 % 40-54 [facility] Laboratory - Chemistry and C hemistry - challengeOrdered By: Alfredo Phipps on 09-16-2023 CO2 [Moles/Vol] 23.0 mmol/L 21.0-32.0 [facility] Urea nitrogen/Creatinine [Mass ratio] 11.6 mg/mg 10-20 [facility] Laboratory - Hematology and Cell countsOrdered By: Alfredo Phipps on 09-16-2023 Erythrocyte distribution width (RBC) [Entitic vol] 46.1 fL 35.1-43.9 [facility] Erythrocyte distribution width (RBC) [Ratio] 13.9 % 11.6-14.6 [facility] Immature granulocytes/100 WBC (Bld) 0.300 % 0.0-0.9 [facility] Comment on above: IG% - Immature Granu locytes (promyelocytes, myelocytes and metamyelocytes) > 1% indicates that a LEFT SHIFT is Present. MCH (RBC) [Entitic mass] 28.9 pg 27.0-32.0 [facility] Nucleated RBC/100 WBC (Bld) [Ratio] 0 % 0-5 [facility] MCHC Auto (RBC) [Mass/Vol]Or dered By: Alfredo Phipps on 09-16-2023 MCHC (RBC) [Mass/Vol] 32.0 g/dL 32-36 [facility] No Panel InformationOrdered By: Alfredo Phipps on 09-16-2023 Estimated GFR (MDRD) Amer 45 mL/min >60 [facility] Comment on above: GFR Calc Estimated GFR (MDRD) Non-Af Amer 37 mL/min >60 [facility] Comment on above: Non- GFR Calc [place] Level 0.60 mmol/L 0.60-1.20 [facility] Platelets bldOrdered By: Pet er Desire on 09-16-2023 Platelets (Bld) [#/Vol] 212 10*3/uL 150-450 [facility] Serum or plasma albumin you urement (mass/volume)Ordered By: Alfredo Phipps on 09-16-2023 Albumin [Mass/Vol] 2.9 g/dL 3.2-5.0 [facility] Serum or plasma calcium you urement (mass/volume)Ordered By: Alfredo Phipps on 09-16-2023 Calcium [Mass/Vol] 9.0 mg/dL 8.5-10.1 [facility] Serum or plasma creatinine m easurement (mass/volume)Ordered By: Alfredo Phipps on 09-16-2023 Creatinine [Mass/Vol] 1.98 mg/dL 0.70-1.30 [facility] Comment on above: The validity of the calculated GFR & GFRAA in patients over 70 years has not been determined. Clinical correlation is essential. Serum or plasma urea nitroge n measurement (mass/volume)Ordered By: Alfredo Phipps on 09-16-2023 Urea nitrogen [Mass/Vol] 23 mg/dL 7-18 [facility] Urine creatinine measurement (mass/volume)Ordered By: Alfredo Phipps on 09-16-2023 Creatinine (U) [Mass/Vol] 44.20 mg/dL NO RANGE EST. [facility] Urine protein measurement (m ass/volume)Ordered By: Alfredo Phipps on 09-16-2023 Protein (U) [Mass/Vol] mg/dL 0.0-11.8 [facility] Urine protein/creatinine mas s ratioOrdered By: Alfredo Phipps on 09-16-2023 Protein/Creatinine (U) [Mass ratio] 131 mg/g CRE 0-200 [facility] Urine creatinine measurement (mass/volume)Ordered By: Adam Ferraro on 08-22-2023 Creatinine (U) [Mass/Vol] 105.00 mg/dL NO RANGE EST. [facility] Urine protein measurement (m ass/volume)Ordered By: Adam Ferraro on 08-22-2023 Protein (U) [Mass/Vol] 19.3 mg/dL 0.0-11.8 [facility] Urine protein/creatinine mas s ratioOrdered By: Adam Ferraro on 08-22-2023 Protein/Creatinine (U) [Mass ratio] 184 mg/g CRE 0-200 [facility] Absolute lymphocyte countOrd ered By: Adam Ferraro on 08-19-2023 Lymphocytes Auto (Unsp spec) [#/Vol] 2.02 10*3/uL 0.83-4.51 [facility] Basophil percentageOrdered B y: Adam Ferraro on 08-19-2023 Basophil percentage 4.0 mg/dL 2.5-4.9 [facility] Basophils/100 WBC (Bld) 0.7 % 0-1 [facility] Chloride [Moles/Vol] 108 mmol/L 98-[address] [facility] Eosinophils/100 WBC (Bld) 4.4 % 0-5 [facility] Glucose [Mass/Vol] 161 mg/dL 74-106 [facility] Comment on above: Fasting Glucose resu lt greater than or equal to 126 mg/dL suggests DIABETES MELLITUS per A.D.A. criteria. Neutrophils (Bld) [#/Vol] 7.4 10*3/uL 2.0-7.7 [facility] Neutrophils/100 WBC (Bld) 66.8 % 47-70 [facility] Potassium [Moles/Vol] 3.9 mmol/L 3.5-5.1 [facility] Sodium [Moles/Vol] 140 mmol/L 136-145 [facility] WBC (Bld) [#/Vol] 11.1 10*3/uL 4.4-11.0 [facility] Blood erythrocytes count (nu mber/volume)Ordered By: Adam Ferraro on 08-19-2023 RBC (Bld) [#/Vol] 4.67 10*6/uL 4.6-6.2 [facility] Blood hemoglobin measurement (mass/volume)Ordered By: Adam Ferraro on 08-19-2023 Hemoglobin (Bld) [Mass/Vol] 13.5 g/dL 13.0-16.5 [facility] Blood lymphocytes/100 leukoc ytesOrdered By: Adam Ferraro on 08-19-2023 Lymphocytes/100 WBC (Bld) 18.3 % 19-41 [facility] Blood monocytes/100 leukocyt esOrdered By: Adam Ferraro on 08-19-2023 Monocytes/100 WBC (Bld) 9.1 % 0-10 [facility] Blood platelet mean volumeOr dered By: Adam Ferraro on 08-19-2023 Platelet mean volume (Bld) [Entitic vol] 9.4 fL 6.2-12.0 [facility] Determination of erythrocyte mean corpuscular volume (MCV)Ordered By: Adam Ferraro on 08-19-2023 MCV (RBC) [Entitic vol] 90.1 fL 80-94 [facility] Hematocrit Auto (Bld) [Volum e fraction]Ordered By: Adam Ferraro on 08-19-2023 Hematocrit (Bld) [Volume fraction] 42.1 % 40-54 [facility] Laboratory - Chemistry and C hemistry - challengeOrdered By: Adam Ferraro on 08-19-2023 CO2 [Moles/Vol] 26.0 mmol/L 21.0-32.0 [facility] Urea nitrogen/Creatinine [Mass ratio] 10.9 mg/mg 10-20 [facility] Laboratory - Hematology and Cell countsOrdered By: Adam Ferraro on 08-19-2023 Erythrocyte distribution width (RBC) [Entitic vol] 45.8 fL 35.1-43.9 [facility] Erythrocyte distribution width (RBC) [Ratio] 13.8 % 11.6-14.6 [facility] Immature granulocytes/100 WBC (Bld) 0.700 % 0.0-0.9 [facility] Comment on above: IG% - Immature Granu locytes (promyelocytes, myelocytes and metamyelocytes) > 1% indicates that a LEFT SHIFT is Present. MCH (RBC) [Entitic mass] 28.9 pg 27.0-32.0 [facility] Nucleated RBC/100 [facility]Bld) [[facility] 0 [facility] [Mass/Vol]Or dered By: Adam Ferraro on 08-19-2023 MCHC (RBC) [Mass/Vol] 32.1 g/dL 32-36 [facility] No Panel InformationOrdered By: Adam Ferraro on 08-19-2023 Estimated GFR (MDRD) Amer 44 mL/min >60 [facility] Comment on above: GFR Calc Estimated GFR (MDRD) Non-Af Amer 36 mL/min >60 [facility] Comment on above: Non- GFR Calc [place] Level 0.50 mmol/L 0.60-1.20 [facility] Platelets bldOrdered By: Benoit Ferraro on 08-19-2023 Platelets (Bld) [#/Vol] 218 10*3/uL 150-450 [facility] Serum or plasma albumin you urement (mass/volume)Ordered By: Adam Ferraro on 08-19-2023 Albumin [Mass/Vol] 2.9 g/dL 3.2-5.0 [facility] Serum or plasma calcium you urement (mass/volume)Ordered By: Adam Ferraro on 08-19-2023 Calcium [Mass/Vol] 9.0 mg/dL 8.5-10.1 [facility] Serum or plasma creatinine m easurement (mass/volume)Ordered By: Adam Ferraro on 08-19-2023 Creatinine [Mass/Vol] 2.01 mg/dL 0.70-1.30 [facility] Comment on above: The validity of the calculated GFR & GFRAA in patients over 70 years has not been determined. Clinical correlation is essential. Serum or plasma urea nitroge n measurement (mass/volume)Ordered By: Adam Ferraro on 08-19-2023 Urea nitrogen [Mass/Vol] 22 mg/dL 7-18 [facility] Whole blood hemoglobin A1c/t otal hemoglobin ratio (mass fraction)Ordered By: Adam Ferraro on 08-19-2023 HbA1c (Bld) [Mass fraction] 7.2 % 3.8-5.6 [facility] Comment on above: Normal < 5.7 % Predi abetic 5.7 - 6.4 % Diabetic >or= 6.5 % Please note range changes. Basophil percentageOrdered B y: Adam Ferraro on 07-28-2023 Cholesterol [Mass/Vol] 124 mg/dL <200 [facility] Comment on above: <200 mg/dL Desirable 200-240 mg/dL Borderline >240 mg/dL High Risk Triglyceride [Mass/Vol] 234 mg/dL <199 [facility] Comment on above: The drugs N-Acetylcy steine and Metamizole may falsely depress this assay.Serum Triglycerides Reference Interval Normal <150 mg/dL Borderline high 150 - 199 mg/dL High 200 - 499 mg/dL Very High > or = 500 mg/dL Serum or plasma cholesterol in HDL measurement (mass/volume)Ordered By: Adam Ferraro on 07-28-2023 Cholesterol in HDL [Mass/Vol] 36 mg/dL >40 [facility] Comment on above: The drugs N-Acetylcy steine and Metamizole may falsely depress this assay. Reference Range HDL <40 mg/dL Low HDL Cholesterol HDL >or= 60 mg/dL High HDL Cholesterol Serum or plasma cholesterol in VLDL measurement (mass/volume)Ordered By: Adam Ferraro on 07-28-2023 Cholesterol in VLDL [Mass/Vol] 47 mg/dL 5-40 [facility] Serum or plasma low density lipoprotein (LDL) cholesterol measurement (mass/volume)Ordered By: Adam Ferraro on 07-28-2023 Cholesterol in LDL [Mass/Vol] 41 mg/dL 0-130 [facility] Serum or plasma uric acid me asurement (mass/volume)Ordered By: Adam Ferraro on 07-28-2023 Urate [Mass/Vol] 6.6 mg/dL 3.5-7.2 [facility] Comment on above: The drugs N-Acetylcy steine and Metamizole may falsely depress this assay. Urine creatinine measurement (mass/volume)Ordered By: Adam Ferraro on 07-24-2023 Creatinine (U) [Mass/Vol] 113.00 mg/dL NO RANGE EST. [facility] Urine protein measurement (m ass/volume)Ordered By: Adam Ferraro on 07-24-2023 Protein (U) [Mass/Vol] 15.1 mg/dL 0.0-11.8 [facility] Urine protein/creatinine mas s ratioOrdered By: Adam Ferraro on 07-24-2023 Protein/Creatinine (U) [Mass ratio] 134 mg/g CRE 0-200 [facility] Absolute lymphocyte countOrd ered By: Alfredo Phipps on 07-22-2023 Lymphocytes Auto (Unsp spec) [#/Vol] 1.60 10*3/uL 0.83-4.51 [facility] Basophil percentageOrdered B y: Alfredo Phipps on 07-22-2023 Basophil percentage 4.2 mg/dL 2.5-4.9 [facility] Basophils/100 WBC (Bld) 1.1 % 0-1 [facility] Chloride [Moles/Vol] 108 mmol/L 98-[address] [facility] Eosinophils/100 WBC (Bld) 2.7 % 0-5 [facility] Glucose [Mass/Vol] 138 mg/dL 74-106 [facility] Comment on above: Fasting Glucose resu lt greater than or equal to 126 mg/dL suggests DIABETES MELLITUS per A.D.A. criteria. Neutrophils (Bld) [#/Vol] 6.9 10*3/uL 2.0-7.7 [facility] Neutrophils/100 WBC (Bld) 69.3 % 47-70 [facility] Potassium [Moles/Vol] 3.8 mmol/L 3.5-5.1 [facility] Sodium [Moles/Vol] 135 mmol/L 136-145 [facility] WBC (Bld) [#/Vol] 9.9 10*3/uL 4.4-11.0 [facility] Blood erythrocytes count (nu mber/volume)Ordered By: Alfredo Phipps on 07-22-2023 RBC (Bld) [#/Vol] 4.79 10*6/uL 4.6-6.2 [facility] Blood hemoglobin measurement (mass/volume)Ordered By: Alfredo Phipps on 07-22-2023 Hemoglobin (Bld) [Mass/Vol] 13.6 g/dL 13.0-16.5 [facility] Blood lymphocytes/100 leukoc ytesOrdered By: Alfredo Phipps on 07-22-2023 Lymphocytes/100 WBC (Bld) 16.1 % 19-41 [facility] Blood monocytes/100 leukocyt esOrdered By: Alfredo Phipps on 07-22-2023 Monocytes/100 WBC (Bld) 10.2 % 0-10 [facility] Blood platelet mean volumeOr dered By: Alfredo Phipps on 07-22-2023 Platelet mean volume (Bld) [Entitic vol] 10.8 fL 6.2-12.0 [facility] Determination of erythrocyte mean corpuscular volume (MCV)Ordered By: Alfredo Phipps on 07-22-2023 MCV (RBC) [Entitic vol] 98.1 fL 80-94 [facility] Hematocrit Auto (Bld) [Volum e fraction]Ordered By: Alfredo Phipps on 07-22-2023 Hematocrit (Bld) [Volume fraction] 47.0 % 40-54 [facility] Laboratory - Chemistry and C hemistry - challengeOrdered By: Alfredo Phipps on 07-22-2023 CO2 [Moles/Vol] 19.0 mmol/L 21.0-32.0 [facility] Urea nitrogen/Creatinine [Mass ratio] 10.7 mg/mg 10-20 [facility] Laboratory - Hematology and Cell countsOrdered By: Alfredo Phipps on 07-22-2023 Erythrocyte distribution width (RBC) [Entitic vol] 58.0 fL 35.1-43.9 [facility] Erythrocyte distribution width (RBC) [Ratio] 16.4 % 11.6-14.6 [facility] Immature granulocytes/100 WBC (Bld) 0.600 % 0.0-0.9 [facility] Comment on above: IG% - Immature Granu locytes (promyelocytes, myelocytes and metamyelocytes) > 1% indicates that a LEFT SHIFT is Present. MCH (RBC) [Entitic mass] 28.4 pg 27.0-32.0 [facility] Nucleated RBC/100 WBC (Bld) [Ratio] 0 % 0-5 [facility] MCHC Auto (RBC) [Mass/Vol]Or dered By: Alfredo Phipps on 07-22-2023 MCHC (RBC) [Mass/Vol] 28.9 g/dL 32-36 [facility] No Panel InformationOrdered By: Alfredo Phipps on 07-22-2023 Estimated GFR (MDRD) Amer 45 mL/min >60 [facility] Comment on above: GFR Calc Estimated GFR (MDRD) Non-Af Amer 37 mL/min >60 [facility] Comment on above: Non- GFR Calc [place] Level 0.60 mmol/L 0.60-1.20 [facility] Platelets bldOrdered By: Jennifer Phipps on 07-22-2023 Platelets (Bld) [#/Vol] 209 10*3/uL 150-450 [facility] Serum or plasma albumin you urement (mass/volume)Ordered By: Alfredo Phipps on 07-22-2023 Albumin [Mass/Vol] 2.6 g/dL 3.2-5.0 [facility] Serum or plasma calcium you urement (mass/volume)Ordered By: Alfredo Phipps on 07-22-2023 Calcium [Mass/Vol] 9.1 mg/dL 8.5-10.1 [facility] Serum or plasma creatinine m easurement (mass/volume)Ordered By: Alfredo Phipps on 07-22-2023 Creatinine [Mass/Vol] 1.97 mg/dL 0.70-1.30 [facility] Comment on above: The validity of the calculated GFR & GFRAA in patients over 70 years has not been determined. Clinical correlation is essential. Serum or plasma urea nitroge n measurement (mass/volume)Ordered By: Alfredo Phipps on 07-22-2023 Urea nitrogen [Mass/Vol] 21 mg/dL 7-18 [facility] Absolute lymphocyte countOrd ered By: Alfredo Phipps on 06-24-2023 Lymphocytes Auto (Unsp spec) [#/Vol] 2.04 10*3/uL 0.83-4.51 [facility] Basophil percentageOrdered B y: Alfredo Phipps on 06-24-2023 Basophil percentage 4.4 mg/dL 2.5-4.9 [facility] Basophils/100 WBC (Bld) 1.2 % 0-1 [facility] Chloride [Moles/Vol] 107 mmol/L 98-[address] [facility] Eosinophils/100 WBC (Bld) 5.2 % 0-5 [facility] Glucose [Mass/Vol] 144 mg/dL 74-106 [facility] Comment on above: Fasting Glucose resu lt greater than or equal to 126 mg/dL suggests DIABETES MELLITUS per A.D.A. criteria. Neutrophils (Bld) [#/Vol] 5.9 10*3/uL 2.0-7.7 [facility] Neutrophils/100 WBC (Bld) 62.3 % 47-70 [facility] Potassium [Moles/Vol] 3.7 mmol/L 3.5-5.1 [facility] Sodium [Moles/Vol] 138 mmol/L 136-145 [facility] WBC (Bld) [#/Vol] 9.4 10*3/uL 4.4-11.0 [facility] Blood erythrocytes count (nu mber/volume)Ordered By: Alfredo Phipps on 06-24-2023 RBC (Bld) [#/Vol] 4.95 10*6/uL 4.6-6.2 [facility] Blood hemoglobin measurement (mass/volume)Ordered By: Alfredo Phipps on 06-24-2023 Hemoglobin (Bld) [Mass/Vol] 14.2 g/dL 13.0-16.5 [facility] Blood lymphocytes/100 leukoc ytesOrdered By: Alfredo Phipps on 06-24-2023 Lymphocytes/100 WBC (Bld) 21.7 % 19-41 [facility] Blood monocytes/100 leukocyt esOrdered By: Alfredo Phipps on 06-24-2023 Monocytes/100 WBC (Bld) 9.1 % 0-10 [facility] Blood platelet mean volumeOr dered By: Alfredo Phipps on 06-24-2023 Platelet mean volume (Bld) [Entitic vol] 9.8 fL 6.2-12.0 [facility] Determination of erythrocyte mean corpuscular volume (MCV)Ordered By: Alfredo Phipps on 06-24-2023 MCV (RBC) [Entitic vol] 88.5 fL 80-94 [facility] Hematocrit Auto (Bld) [Volum e fraction]Ordered By: Alfredo Phipps on 06-24-2023 Hematocrit (Bld) [Volume fraction] 43.8 % 40-54 [facility] Laboratory - Chemistry and C hemistry - challengeOrdered By: Alfredo Phipps on 06-24-2023 CO2 [Moles/Vol] 25.0 mmol/L 21.0-32.0 [facility] Urea nitrogen/Creatinine [Mass ratio] 11.5 mg/mg 10-20 [facility] Laboratory - Hematology and Cell countsOrdered By: Alfredo Phipps on 06-24-2023 Erythrocyte distribution width (RBC) [Entitic vol] 42.3 fL 35.1-43.9 [facility] Erythrocyte distribution width (RBC) [Ratio] 13.1 % 11.6-14.6 [facility] Immature granulocytes/100 WBC (Bld) 0.500 % 0.0-0.9 [facility] Comment on above: IG% - Immature Granu locytes (promyelocytes, myelocytes and metamyelocytes) > 1% indicates that a LEFT SHIFT is Present. MCH (RBC) [Entitic mass] 28.7 pg 27.0-32.0 [facility] Nucleated RBC/100 WBC (Bld) [Ratio] 0 % 0-5 [facility] MCHC Auto (RBC) [Mass/Vol]Or dered By: Alfredo Phipps on 06-24-2023 MCHC (RBC) [Mass/Vol] 32.4 g/dL 32-36 [facility] No Panel InformationOrdered By: Alfredo Phipps on 06-24-2023 Estimated GFR (MDRD) Amer 49 mL/min >60 [facility] Comment on above: GFR Calc Estimated GFR (MDRD) Non-Af Amer 40 mL/min >60 [facility] Comment on above: Non- GFR Calc [place] Level 0.60 mmol/L 0.60-1.20 [facility] Platelets bldOrdered By: Jennifer Phipps on 06-24-2023 Platelets (Bld) [#/Vol] 213 10*3/uL 150-450 [facility] Serum or plasma albumin you urement (mass/volume)Ordered By: Alfredo Phipps on 06-24-2023 Albumin [Mass/Vol] 2.9 g/dL 3.2-5.0 [facility] Serum or plasma calcium you urement (mass/volume)Ordered By: Alfredo Phipps on 06-24-2023 Calcium [Mass/Vol] 9.1 mg/dL 8.5-10.1 [facility] Serum or plasma creatinine m easurement (mass/volume)Ordered By: Alfredo Phipps on 06-24-2023 Creatinine [Mass/Vol] 1.83 mg/dL 0.70-1.30 [facility] Comment on above: The validity of the calculated GFR & GFRAA in patients over 70 years has not been determined. Clinical correlation is essential. Serum or plasma urea nitroge n measurement (mass/volume)Ordered By: Alfredo Phipps on 06-24-2023 Urea nitrogen [Mass/Vol] 21 mg/dL 7-18 [facility] Serum or plasma uric acid me asurement (mass/volume)Ordered By: Alfredo Phipps on 06-24-2023 Urate [Mass/Vol] 6.5 mg/dL 3.5-7.2 [facility] Comment on above: The drugs N-Acetylcy steine and Metamizole may falsely depress this assay. Urine creatinine measurement (mass/volume)Ordered By: Alfredo Phipps on 06-24-2023 Creatinine (U) [Mass/Vol] 127.00 mg/dL NO RANGE EST. [facility] Urine protein measurement (m ass/volume)Ordered By: Alfredo Phipps on 06-24-2023 Protein (U) [Mass/Vol] 19.9 mg/dL 0.0-11.8 [facility] Urine protein/creatinine mas s ratioOrdered By: Alfredo Phipps on 06-24-2023 Protein/Creatinine (U) [Mass ratio] 157 mg/g CRE 0-200 [facility] Urine creatinine measurement (mass/volume)Ordered By: Adam Ferraro on 05-30-2023 Creatinine (U) [Mass/Vol] 73.90 mg/dL NO RANGE EST. [facility] Urine protein measurement (m ass/volume)Ordered By: Adam Ferraro on 05-30-2023 Protein (U) [Mass/Vol] 18.0 mg/dL 0.0-11.8 [facility] Urine protein/creatinine mas s ratioOrdered By: Adam Ferraro on 05-30-2023 Protein/Creatinine (U) [Mass ratio] 244 mg/g CRE 0-200 [facility] Absolute lymphocyte countOrd ered By: Adam Ferraro on 05-27-2023 Lymphocytes Auto (Unsp spec) [#/Vol] 1.85 10*3/uL 0.83-4.51 [facility] Basophil percentageOrdered B y: Adam Ferraro on 05-27-2023 Basophil percentage 3.9 mg/dL 2.5-4.9 [facility] Basophils/100 WBC (Bld) 1.1 % 0-1 [facility] Chloride [Moles/Vol] 106 mmol/L 98-[address] [facility] Eosinophils/100 WBC (Bld) 3.3 % 0-5 [facility] Glucose [Mass/Vol] 208 mg/dL 74-106 [facility] Comment on above: Glucose result great er than or equal to 200 mg/dLsuggests DIABETES MELLITUS per A.D.A. criteria. Neutrophils (Bld) [#/Vol] 5.6 10*3/uL 2.0-7.7 [facility] Neutrophils/100 WBC (Bld) 64.5 % 47-70 [facility] Potassium [Moles/Vol] 3.7 mmol/L 3.5-5.1 [facility] Sodium [Moles/Vol] 138 mmol/L 136-145 [facility] WBC (Bld) [#/Vol] 8.7 10*3/uL 4.4-11.0 [facility] Blood erythrocytes count (nu mber/volume)Ordered By: Adam Ferraro on 05-27-2023 RBC (Bld) [#/Vol] 4.98 10*6/uL 4.6-6.2 [facility] Blood hemoglobin measurement (mass/volume)Ordered By: Adam Ferraro on 05-27-2023 Hemoglobin (Bld) [Mass/Vol] 14.4 g/dL 13.0-16.5 [facility] Blood lymphocytes/100 leukoc ytesOrdered By: Adam Ferraro on 05-27-2023 Lymphocytes/100 WBC (Bld) 21.2 % 19-41 [facility] Blood monocytes/100 leukocyt esOrdered By: Adam Ferraro on 05-27-2023 Monocytes/100 WBC (Bld) 9.3 % 0-10 [facility] Blood platelet mean volumeOr dered By: Adam Ferraro on 05-27-2023 Platelet mean volume (Bld) [Entitic vol] 10.0 fL 6.2-12.0 [facility] Determination of erythrocyte mean corpuscular volume (MCV)Ordered By: Adam Ferraro on 05-27-2023 MCV (RBC) [Entitic vol] 89.6 fL 80-94 [facility] Hematocrit Auto (Bld) [Volum e fraction]Ordered By: Adam Ferraro on 05-27-2023 Hematocrit (Bld) [Volume fraction] 44.6 % 40-54 [facility] Laboratory - Chemistry and C hemistry - challengeOrdered By: Adam Ferraro on 05-27-2023 CO2 [Moles/Vol] 27.0 mmol/L 21.0-32.0 [facility] Urea nitrogen/Creatinine [Mass ratio] 11.5 mg/mg 10-20 [facility] Laboratory - Hematology and Cell countsOrdered By: Adam Ferraro on 05-27-2023 Erythrocyte distribution width (RBC) [Entitic vol] 42.2 fL 35.1-43.9 [facility] Erythrocyte distribution width (RBC) [Ratio] 13.0 % 11.6-14.6 [facility] Immature granulocytes/100 WBC (Bld) 0.600 % 0.0-0.9 [facility] Comment on above: IG% - Immature Granu locytes (promyelocytes, myelocytes and metamyelocytes) > 1% indicates that a LEFT SHIFT is Present. MCH (RBC) [Entitic mass] 28.9 pg 27.0-32.0 [facility] Nucleated RBC/100 WBC (Bld) [Ratio] 0 % 0-5 [facility] MCHC Auto (RBC) [Mass/Vol]Or dered By: Adam Ferraro on 05-27-2023 MCHC (RBC) [Mass/Vol] 32.3 g/dL 32-36 [facility] No Panel InformationOrdered By: Adam Ferraro on 05-27-2023 Estimated GFR (MDRD) Amer 52 mL/min >60 [facility] Comment on above: GFR Calc Estimated GFR (MDRD) Non-Af Amer 43 mL/min >60 [facility] Comment on above: Non- GFR Calc [place] Level 0.40 mmol/L 0.60-1.20 [facility] Platelets bldOrdered By: Benoit ivey Jasmine on 05-27-2023 Platelets (Bld) [#/Vol] 211 10*3/uL 150-450 [facility] Serum or plasma albumin you urement (mass/volume)Ordered By: Adam Ferraro on 05-27-2023 Albumin [Mass/Vol] 2.9 g/dL 3.2-5.0 [facility] Serum or plasma calcium you urement (mass/volume)Ordered By: Adam Ferraro on 05-27-2023 Calcium [Mass/Vol] 9.2 mg/dL 8.5-10.1 [facility] Serum or plasma creatinine m easurement (mass/volume)Ordered By: Adam Ferraro on 05-27-2023 Creatinine [Mass/Vol] 1.74 mg/dL 0.70-1.30 [facility] Comment on above: The validity of the calculated GFR & GFRAA in patients over 70 years has not been determined. Clinical correlation is essential. Serum or plasma urea nitroge n measurement (mass/volume)Ordered By: Adam Ferraro on 05-27-2023 Urea nitrogen [Mass/Vol] 20 mg/dL 7-18 [facility] Serum or plasma uric acid me asurement (mass/volume)Ordered By: Adam Ferraro on 05-27-2023 Urate [Mass/Vol] 4.9 mg/dL 3.5-7.2 [facility] Comment on above: The drugs N-Acetylcy steine and Metamizole may falsely depress this assay. Whole blood hemoglobin A1c/t otal hemoglobin ratio (mass fraction)Ordered By: Adam Ferraro on 05-19-2023 HbA1c (Bld) [Mass fraction] 11.1 % 3.8-5.6 [facility] Comment on above: Normal < 5.7 % Predi abetic 5.7 - 6.4 % Diabetic >or= 6.5 % Please note range changes. Absolute lymphocyte countOrd ered By: Alfredo Phipps on 04-29-2023 Lymphocytes Auto (Unsp spec) [#/Vol] 1.98 10*3/uL 0.83-4.51 [facility] Basophil percentageOrdered B y: Alfredo Phipps on 04-29-2023 Basophil percentage 3.6 mg/dL 2.5-4.9 [facility] Basophils/100 WBC (Bld) 1.0 % 0-1 [facility] Chloride [Moles/Vol] 105 mmol/L 98-[address] [facility] Eosinophils/100 WBC (Bld) 2.7 % 0-5 [facility] Glucose [Mass/Vol] 300 mg/dL 74-106 [facility] Comment on above: Glucose result great er than or equal to 200 mg/dLsuggests DIABETES MELLITUS per A.D.A. criteria. Neutrophils (Bld) [#/Vol] 5.7 10*3/uL 2.0-7.7 [facility] Neutrophils/100 WBC (Bld) 64.2 % 47-70 [facility] Potassium [Moles/Vol] 3.9 mmol/L 3.5-5.1 [facility] Sodium [Moles/Vol] 138 mmol/L 136-145 [facility] WBC (Bld) [#/Vol] 8.9 10*3/uL 4.4-11.0 [facility] Blood erythrocytes count (nu mber/volume)Ordered By: Alfredo Phipps on 04-29-2023 RBC (Bld) [#/Vol] 4.74 10*6/uL 4.6-6.2 [facility] Blood hemoglobin measurement (mass/volume)Ordered By: Alfredo Phipps on 04-29-2023 Hemoglobin (Bld) [Mass/Vol] 13.6 g/dL 13.0-16.5 [facility] Blood lymphocytes/100 leukoc ytesOrdered By: Alfredo Phipps on 04-29-2023 Lymphocytes/100 WBC (Bld) 22.2 % 19-41 [facility] Blood monocytes/100 leukocyt esOrdered By: Alfredo Phipps on 04-29-2023 Monocytes/100 WBC (Bld) 9.2 % 0-10 [facility] Blood platelet mean volumeOr dered By: Alfredo Phipps on 04-29-2023 Platelet mean volume (Bld) [Entitic vol] 9.7 fL 6.2-12.0 [facility] Determination of erythrocyte mean corpuscular volume (MCV)Ordered By: Alfredo Phipps on 04-29-2023 MCV (RBC) [Entitic vol] 87.8 fL 80-94 [facility] Hematocrit Auto (Bld) [Volum e fraction]Ordered By: Alfredo Phipps on 04-29-2023 Hematocrit (Bld) [Volume fraction] 41.6 % 40-54 [facility] Laboratory - Chemistry and C hemistry - challengeOrdered By: Alfredo Phipps on 04-29-2023 CO2 [Moles/Vol] 24.0 mmol/L 21.0-32.0 [facility] Urea nitrogen/Creatinine [Mass ratio] 13.7 mg/mg 10-20 [facility] Laboratory - Hematology and Cell countsOrdered By: Alfredo Phipps on 04-29-2023 Erythrocyte distribution width (RBC) [Entitic vol] 41.7 fL 35.1-43.9 [facility] Erythrocyte distribution width (RBC) [Ratio] 12.9 % 11.6-14.6 [facility] Immature granulocytes/100 WBC (Bld) 0.700 % 0.0-0.9 [facility] Comment on above: IG% - Immature Granu locytes (promyelocytes, myelocytes and metamyelocytes) > 1% indicates that a LEFT SHIFT is Present. MCH (RBC) [Entitic mass] 28.7 pg 27.0-32.0 [facility] Nucleated RBC/100 WBC (Bld) [Ratio] 0 % 0-5 [facility] MCHC Auto (RBC) [Mass/Vol]Or dered By: Alfredo Phipps on 04-29-2023 MCHC (RBC) [Mass/Vol] 32.7 g/dL 32-36 [facility] No Panel InformationOrdered By: Alfredo Phipps on 04-29-2023 Estimated GFR (MDRD) Amer 51 mL/min >60 [facility] Comment on above: GFR Calc Estimated GFR (MDRD) Non-Af Amer 43 mL/min >60 [facility] Comment on above: Non- GFR Calc [place] Level 0.40 mmol/L 0.60-1.20 [facility] Platelets bldOrdered By: Pet shonda Phipps on 04-29-2023 Platelets (Bld) [#/Vol] 204 10*3/uL 150-450 [facility] Serum or plasma albumin you urement (mass/volume)Ordered By: Alfredo Phipps on 04-29-2023 Albumin [Mass/Vol] 2.7 g/dL 3.2-5.0 [facility] Serum or plasma calcium you urement (mass/volume)Ordered By: Alfredo Phipps on 04-29-2023 Calcium [Mass/Vol] 8.9 mg/dL 8.5-10.1 [facility] Serum or plasma creatinine m easurement (mass/volume)Ordered By: Alfredo Phipps on 04-29-2023 Creatinine [Mass/Vol] 1.75 mg/dL 0.70-1.30 [facility] Comment on above: The validity of the calculated GFR & GFRAA in patients over 70 years has not been determined. Clinical correlation is essential. Serum or plasma urea nitroge n measurement (mass/volume)Ordered By: Alfredo Phipps on 04-29-2023 Urea nitrogen [Mass/Vol] 24 mg/dL 7-18 [facility] Serum or plasma uric acid me asurement (mass/volume)Ordered By: Alfredo Phipps on 04-27-2023 Urate [Mass/Vol] 4.8 mg/dL 3.5-7.2 [facility] Comment on above: The drugs N-Acetylcy steine and Metamizole may falsely depress this assay. Urine creatinine measurement (mass/volume)Ordered By: Adam Ferraro on 04-04-2023 Creatinine (U) [Mass/Vol] 96.50 mg/dL NO RANGE EST. [facility] Urine protein measurement (m ass/volume)Ordered By: Adam Ferraro on 04-04-2023 Protein (U) [Mass/Vol] 26.4 mg/dL 0.0-11.8 [facility] Urine protein/creatinine mas s ratioOrdered By: Adam Ferraro on 04-04-2023 Protein/Creatinine (U) [Mass ratio] 274 mg/g CRE 0-200 [facility] Absolute lymphocyte countOrd ered By: Adam Ferraro on 04-01-2023 Lymphocytes Auto (Unsp spec) [#/Vol] 1.91 10*3/uL 0.83-4.51 [facility] Basophil percentageOrdered B y: Adam Ferraro on 04-01-2023 Basophil percentage 3.3 mg/dL 2.5-4.9 [facility] Basophils/100 WBC (Bld) 1.1 % 0-1 [facility] Chloride [Moles/Vol] 105 mmol/L 98-[address] [facility] Eosinophils/100 WBC (Bld) 2.7 % 0-5 [facility] Glucose [Mass/Vol] 317 mg/dL 74-106 [facility] Comment on above: Glucose result great er than or equal to 200 mg/dLsuggests DIABETES MELLITUS per A.D.A. criteria. Neutrophils (Bld) [#/Vol] 5.4 10*3/uL 2.0-7.7 [facility] Neutrophils/100 WBC (Bld) 64.7 % 47-70 [facility] Potassium [Moles/Vol] 3.8 mmol/L 3.5-5.1 [facility] Sodium [Moles/Vol] 137 mmol/L 136-145 [facility] WBC (Bld) [#/Vol] 8.4 10*3/uL 4.4-11.0 [facility] Blood erythrocytes count (nu mber/volume)Ordered By: Adam Ferraro on 04-01-2023 RBC (Bld) [#/Vol] 5.17 10*6/uL 4.6-6.2 [facility] Blood hemoglobin measurement (mass/volume)Ordered By: Adam Ferraro on 04-01-2023 Hemoglobin (Bld) [Mass/Vol] 14.7 g/dL 13.0-16.5 [facility] Blood lymphocytes/100 leukoc ytesOrdered By: Adam Ferraro on 04-01-2023 Lymphocytes/100 WBC (Bld) 22.7 % 19-41 [facility] Blood monocytes/100 leukocyt esOrdered By: Adam Ferraro on 04-01-2023 Monocytes/100 WBC (Bld) 8.2 % 0-10 [facility] Blood platelet mean volumeOr dered By: Adam Ferraro on 04-01-2023 Platelet mean volume (Bld) [Entitic vol] 9.8 fL 6.2-12.0 [facility] Determination of erythrocyte mean corpuscular volume (MCV)Ordered By: Adam Ferraro on 04-01-2023 MCV (RBC) [Entitic vol] 88.6 fL 80-94 [facility] Hematocrit Auto (Bld) [Volum e fraction]Ordered By: Adam Ferraro on 04-01-2023 Hematocrit (Bld) [Volume fraction] 45.8 % 40-54 [facility] Laboratory - Chemistry and C hemistry - challengeOrdered By: Adam Ferraro on 04-01-2023 CO2 [Moles/Vol] 25.0 mmol/L 21.0-32.0 [facility] Urea nitrogen/Creatinine [Mass ratio] 13.7 mg/mg 10-20 [facility] - Hematology and Cell countsOrdered By: Adam Ferraro on 04-01-2023 Erythrocyte distribution width (RBC) [Entitic vol] 42.5 fL 35.1-43.9 [facility] Erythrocyte distribution width (RBC) [Ratio] 13.1 % 11.6-14.6 [facility] Immature granulocytes/100 WBC (Bld) 0.600 % 0.0-0.9 [facility] Comment on above: IG% - Immature Granu locytes (promyelocytes, myelocytes and metamyelocytes) > 1% indicates that a LEFT SHIFT is Present. MCH (RBC) [Entitic mass] 28.4 pg 27.0-32.0 [facility] Nucleated RBC/100 WBC (Bld) [Ratio] 0 % 0-5 [facility] MCHC Auto (RBC) [Mass/Vol]Or dered By: Adam Ferraro on 04-01-2023 MCHC (RBC) [Mass/Vol] 32.1 g/dL 32-36 [facility] No Panel InformationOrdered By: Adam Ferraro on 04-01-2023 Estimated GFR (MDRD) Amer 49 mL/min >60 [facility] Comment on above: GFR Calc Estimated GFR (MDRD) Non-Af Amer 41 mL/min >60 [facility] Comment on above: Non- GFR Calc [place] Level < 0.20 mmol/L 0.60-1.20 [facility] Platelets bldOrdered By: Benoit Ferraro on 04-01-2023 Platelets (Bld) [#/Vol] 209 10*3/uL 150-450 [facility] Serum or plasma albumin you urement (mass/volume)Ordered By: Adam Ferraro on 04-01-2023 Albumin [Mass/Vol] 3.0 g/dL 3.2-5.0 [facility] Serum or plasma calcium you urement (mass/volume)Ordered By: Adam Ferraro on 04-01-2023 Calcium [Mass/Vol] 8.9 mg/dL 8.5-10.1 [facility] Serum or plasma creatinine m easurement (mass/volume)Ordered By: Adam Ferraro on 04-01-2023 Creatinine [Mass/Vol] 1.82 mg/dL 0.70-1.30 [facility] Comment on above: The validity of the calculated GFR & GFRAA in patients over 70 years has not been determined. Clinical correlation is essential. Serum or plasma urea nitroge n measurement (mass/volume)Ordered By: Adam Ferraro on 04-01-2023 Urea nitrogen [Mass/Vol] 25 mg/dL 7-18 [facility] Absolute lymphocyte countOrd ered By: Alfredo Phipps on 03-04-2023 Lymphocytes Auto (Unsp spec) [#/Vol] 2.18 10*3/uL 0.83-4.51 [facility] Basophil percentageOrdered B y: Alfredo Phipps on 03-04-2023 Basophil percentage 3.9 mg/dL 2.5-4.9 [facility] Basophils/100 WBC (Bld) 0.9 % 0-1 [facility] Chloride [Moles/Vol] 109 mmol/L 98-[address] [facility] Eosinophils/100 WBC (Bld) 3.5 % 0-5 [facility] Glucose [Mass/Vol] 179 mg/dL 74-106 [facility] Comment on above: Fasting Glucose resu lt greater than or equal to 126 mg/dL suggests DIABETES MELLITUS per A.D.A. criteria. Neutrophils (Bld) [#/Vol] 6.1 10*3/uL 2.0-7.7 [facility] Neutrophils/100 WBC (Bld) 63.2 % 47-70 [facility] Potassium [Moles/Vol] 3.9 mmol/L 3.5-5.1 [facility] Sodium [Moles/Vol] 138 mmol/L 136-145 [facility] WBC (Bld) [#/Vol] 9.6 10*3/uL 4.4-11.0 [facility] Blood erythrocytes count (nu mber/volume)Ordered By: Alfredo Phipps on 03-04-2023 RBC (Bld) [#/Vol] 4.74 10*6/uL 4.6-6.2 [facility] Blood hemoglobin measurement (mass/volume)Ordered By: Alfredo Phipps on 03-04-2023 Hemoglobin (Bld) [Mass/Vol] 13.6 g/dL 13.0-16.5 [facility] Blood lymphocytes/100 leukoc ytesOrdered By: Alfredo Phipps on 03-04-2023 Lymphocytes/100 WBC (Bld) 22.6 % 19-41 [facility] Blood monocytes/100 leukocyt esOrdered By: Alfredo Phipps on 03-04-2023 Monocytes/100 WBC (Bld) 9.4 % 0-10 [facility] Blood platelet mean volumeOr dered By: Alfredo Phipps on 03-04-2023 Platelet mean volume (Bld) [Entitic vol] 9.7 fL 6.2-12.0 [facility] Determination of erythrocyte mean corpuscular volume (MCV)Ordered By: Alfredo Phipps on 03-04-2023 MCV (RBC) [Entitic vol] 90.3 fL 80-94 [facility] Hematocrit Auto (Bld) [Volum e fraction]Ordered By: Alfredo Phipps on 03-04-2023 Hematocrit (Bld) [Volume fraction] 42.8 % 40-54 [facility] Laboratory - Chemistry and C hemistry - challengeOrdered By: Alfredo Phipps on 03-04-2023 CO2 [Moles/Vol] 26.0 mmol/L 21.0-32.0 [facility] Urea nitrogen/Creatinine [Mass ratio] 13.9 mg/mg 10-20 [facility] Laboratory - Hematology and Cell countsOrdered By: Alfredo Phipps on 03-04-2023 Erythrocyte distribution width (RBC) [Entitic vol] 42.8 fL 35.1-43.9 [facility] Erythrocyte distribution width (RBC) [Ratio] 12.9 % 11.6-14.6 [facility] Immature granulocytes/100 WBC (Bld) 0.400 % 0.0-0.9 [facility] Comment on above: IG% - Immature Granu locytes (promyelocytes, myelocytes and metamyelocytes) > 1% indicates that a LEFT SHIFT is Present. MCH (RBC) [Entitic mass] 28.7 pg 27.0-32.0 [facility] Nucleated RBC/100 WBC (Bld) [Ratio] 0 % 0-5 [facility] MCHC Auto (RBC) [Mass/Vol]Or dered By: Alfredo Phipps on 03-04-2023 MCHC (RBC) [Mass/Vol] 31.8 g/dL 32-36 [facility] No Panel InformationOrdered By: Alfredo Phipps on 03-04-2023 Estimated GFR (MDRD) Amer 55 mL/min >60 [facility] Comment on above: GFR Calc Estimated GFR (MDRD) Non-Af Amer 46 mL/min >60 [facility] Comment on above: Non- GFR Calc [place] Level 0.40 mmol/L 0.60-1.20 [facility] Platelets bldOrdered By: Jennifer Phipps on 03-04-2023 Platelets (Bld) [#/Vol] 207 10*3/uL 150-450 [facility] Serum or plasma albumin you urement (mass/volume)Ordered By: Alfredo Phipps on 03-04-2023 Albumin [Mass/Vol] 2.8 g/dL 3.2-5.0 [facility] Serum or plasma calcium you urement (mass/volume)Ordered By: Alfredo Phipps on 03-04-2023 Calcium [Mass/Vol] 9.2 mg/dL 8.5-10.1 [facility] Serum or plasma creatinine m easurement (mass/volume)Ordered By: Alfredo Phipps on 03-04-2023 Creatinine [Mass/Vol] 1.65 mg/dL 0.70-1.30 [facility] Comment on above: The validity of the calculated GFR & GFRAA in patients over 70 years has not been determined. Clinical correlation is essential. Serum or plasma urea nitroge n measurement (mass/volume)Ordered By: Alfredo Phipps on 03-04-2023 Urea nitrogen [Mass/Vol] 23 mg/dL 7-18 [facility] Serum or plasma uric acid me asurement (mass/volume)Ordered By: Alfredo Phipps on 02-25-2023 Urate [Mass/Vol] 5.6 mg/dL 3.5-7.2 [facility] Comment on above: The drugs N-Acetylcy steine and Metamizole may falsely depress this assay. Absolute lymphocyte countOrd ered By: Alfredo Phipps on 02-04-2023 Lymphocytes Auto (Unsp spec) [#/Vol] 2.03 10*3/uL 0.83-4.51 [facility] Basophil percentageOrdered B y: Alfredo Phipps on 02-04-2023 Basophil percentage 4.3 mg/dL 2.5-4.9 [facility] Basophils/100 WBC (Bld) 1.2 % 0-1 [facility] Chloride [Moles/Vol] 108 mmol/L 98-[address] [facility] Eosinophils/100 WBC (Bld) 3.6 % 0-5 [facility] Glucose [Mass/Vol] 193 mg/dL 74-106 [facility] Comment on above: Fasting Glucose resu lt greater than or equal to 126 mg/dL suggests DIABETES MELLITUS per A.D.A. criteria. Neutrophils (Bld) [#/Vol] 6.1 10*3/uL 2.0-7.7 [facility] Neutrophils/100 WBC (Bld) 63.9 % 47-70 [facility] Potassium [Moles/Vol] 4.0 mmol/L 3.5-5.1 [facility] Sodium [Moles/Vol] 139 mmol/L 136-145 [facility] WBC (Bld) [#/Vol] 9.5 10*3/uL 4.4-11.0 [facility] Blood erythrocytes count (nu mber/volume)Ordered By: Alfredo Phipps on 02-04-2023 RBC (Bld) [#/Vol] 4.81 10*6/uL 4.6-6.2 [facility] Blood hemoglobin measurement (mass/volume)Ordered By: Alfredo Phipps on 02-04-2023 Hemoglobin (Bld) [Mass/Vol] 13.9 g/dL 13.0-16.5 [facility] Blood lymphocytes/100 leukoc ytesOrdered By: Alfredo Phipps on 02-04-2023 Lymphocytes/100 WBC (Bld) 21.4 % 19-41 [facility] Blood monocytes/100 leukocyt esOrdered By: Alfredo Phipps on 02-04-2023 Monocytes/100 WBC (Bld) 9.2 % 0-10 [facility] Blood platelet mean volumeOr dered By: Alfredo Phipps on 02-04-2023 Platelet mean volume (Bld) [Entitic vol] 9.4 fL 6.2-12.0 [facility] Determination of erythrocyte mean corpuscular volume (MCV)Ordered By: Alfredo Phipps on 02-04-2023 MCV (RBC) [Entitic vol] 94.2 fL 80-94 [facility] Hematocrit Auto (Bld) [Volum e fraction]Ordered By: Alfredo Phipps on 02-04-2023 Hematocrit (Bld) [Volume fraction] 45.3 % 40-54 [facility] Laboratory - Chemistry and C hemistry - challengeOrdered By: Alfredo Phipps on 02-04-2023 CO2 [Moles/Vol] 24.0 mmol/L 21.0-32.0 [facility] Urea nitrogen/Creatinine [Mass ratio] 14.6 mg/mg 10-20 [facility] Laboratory - Hematology and Cell countsOrdered By: Alfredo Phipps on 02-04-2023 Erythrocyte distribution width (RBC) [Entitic vol] 45.1 fL 35.1-43.9 [facility] Erythrocyte distribution width (RBC) [Ratio] 13.1 % 11.6-14.6 [facility] Immature granulocytes/100 WBC (Bld) 0.700 % 0.0-0.9 [facility] Comment on above: IG% - Immature Granu locytes (promyelocytes, myelocytes and metamyelocytes) > 1% indicates that a LEFT SHIFT is Present. MCH (RBC) [Entitic mass] 28.9 pg 27.0-32.0 [facility] Nucleated RBC/100 WBC (Bld) [Ratio] 0 % 0-5 [facility] MCHC Auto (RBC) [Mass/Vol]Or dered By: Alfredo Phipps on 02-04-2023 MCHC (RBC) [Mass/Vol] 30.7 g/dL 32-36 [facility] No Panel InformationOrdered By: Alfredo Phipps on 02-04-2023 Estimated GFR (MDRD) Amer 53 mL/min >60 [facility] Comment on above: GFR Calc Estimated GFR (MDRD) Non-Af Amer 44 mL/min >60 [facility] Comment on above: Non- GFR Calc [place] Level 0.50 mmol/L 0.60-1.20 [facility] Platelets bldOrdered By: Pet er Desire on 02-04-2023 Platelets (Bld) [#/Vol] 182 10*3/uL 150-450 [facility] Serum or plasma albumin you urement (mass/volume)Ordered By: Alfredo Phipps on 02-04-2023 Albumin [Mass/Vol] 2.9 g/dL 3.2-5.0 [facility] Serum or plasma calcium you urement (mass/volume)Ordered By: Alfredo Phipps on 02-04-2023 Calcium [Mass/Vol] 8.9 mg/dL 8.5-10.1 [facility] Serum or plasma creatinine m easurement (mass/volume)Ordered By: Alfredo Phipps on 02-04-2023 Creatinine [Mass/Vol] 1.71 mg/dL 0.70-1.30 [facility] Comment on above: The validity of the calculated GFR & GFRAA in patients over 70 years has not been determined. Clinical correlation is essential. Serum or plasma urea nitroge n measurement (mass/volume)Ordered By: Alfredo Phipps on 02-04-2023 Urea nitrogen [Mass/Vol] 25 mg/dL 7-18 [facility] Serum or plasma uric acid me asurement (mass/volume)Ordered By: Adam Ferraro on 01-25-2023 Urate [Mass/Vol] 5.8 mg/dL 3.5-7.2 [facility] Comment on above: The drugs N-Acetylcy steine and Metamizole may falsely depress this assay. Basophil percentageOrdered B y: Alfredo Phipps on 01-19-2023 Cholesterol [Mass/Vol] 160 mg/dL <200 [facility] Comment on above: <200 mg/dL Desirable 200-240 mg/dL Borderline >240 mg/dL High Risk Triglyceride [Mass/Vol] 322 mg/dL <199 [facility] Comment on above: The drugs N-Acetylcy steine and Metamizole may falsely depress this assay.Serum Triglycerides Reference Interval Normal <150 mg/dL Borderline high 150 - 199 mg/dL High 200 - 499 mg/dL Very High > or = 500 mg/dL Serum or plasma cholesterol in HDL measurement (mass/volume)Ordered By: Alfredo Phipps on 01-19-2023 Cholesterol in HDL [Mass/Vol] 38 mg/dL >40 [facility] Comment on above: The drugs N-Acetylcy steine and Metamizole may falsely depress this assay. Reference Range HDL <40 mg/dL Low HDL Cholesterol HDL >or= 60 mg/dL High HDL Cholesterol Serum or plasma cholesterol in VLDL measurement (mass/volume)Ordered By: Alfredo Phipps on 01-19-2023 Cholesterol in VLDL [Mass/Vol] 64 mg/dL 5-40 [facility] Serum or plasma low density lipoprotein (LDL) cholesterol measurement (mass/volume)Ordered By: Alfredo Phipps on 01-19-2023 Cholesterol in LDL [Mass/Vol] 58 mg/dL 0-130 [facility] Absolute lymphocyte countOrd ered By: Alfredo Phipps on 01-07-2023 Lymphocytes Auto (Unsp spec) [#/Vol] 2.02 10*3/uL 0.83-4.51 [facility] Basophil percentageOrdered B y: Alfredo Phipps on 01-07-2023 Basophil percentage 3.6 mg/dL 2.5-4.9 [facility] Basophils/100 WBC (Bld) 1.0 % 0-1 [facility] Chloride [Moles/Vol] 109 mmol/L 98-[address] [facility] Eosinophils/100 WBC (Bld) 2.8 % 0-5 [facility] Glucose [Mass/Vol] 236 mg/dL 74-106 [facility] Comment on above: Glucose result great er than or equal to 200 mg/dLsuggests DIABETES MELLITUS per A.D.A. criteria. Neutrophils (Bld) [#/Vol] 5.8 10*3/uL 2.0-7.7 [facility] Neutrophils/100 WBC (Bld) 62.2 % 47-70 [facility] Potassium [Moles/Vol] 4.1 mmol/L 3.5-5.1 [facility] Sodium [Moles/Vol] 141 mmol/L 136-145 [facility] WBC (Bld) [#/Vol] 9.3 10*3/uL 4.4-11.0 [facility] Blood erythrocytes count (nu mber/volume)Ordered By: Alfredo Phipps on 01-07-2023 RBC (Bld) [#/Vol] 4.67 10*6/uL 4.6-6.2 [facility] Blood hemoglobin measurement (mass/volume)Ordered By: Alfredo Phipps on 01-07-2023 Hemoglobin (Bld) [Mass/Vol] 13.5 g/dL 13.0-16.5 [facility] Blood lymphocytes/100 leukoc ytesOrdered By: Alfredo Phipps on 01-07-2023 Lymphocytes/100 WBC (Bld) 21.8 % 19-41 [facility] Blood monocytes/100 leukocyt esOrdered By: Alfredo Phipps on 01-07-2023 Monocytes/100 WBC (Bld) 11.6 % 0-10 [facility] Blood platelet mean volumeOr dered By: Alfredo Phipps on 01-07-2023 Platelet mean volume (Bld) [Entitic vol] 9.8 fL 6.2-12.0 [facility] Determination of erythrocyte mean corpuscular volume (MCV)Ordered By: Alfredo Phipps on 01-07-2023 MCV (RBC) [Entitic vol] 89.7 fL 80-94 [facility] Hematocrit Auto (Bld) [Volum e fraction]Ordered By: Alfredo Phipps on 01-07-2023 Hematocrit (Bld) [Volume fraction] 41.9 % 40-54 [facility] Laboratory - Chemistry and C hemistry - challengeOrdered By: Alfredo Phipps on 01-07-2023 CO2 [Moles/Vol] 26.0 mmol/L 21.0-32.0 [facility] Urea nitrogen/Creatinine [Mass ratio] 13.4 mg/mg 10-20 [facility] Laboratory - Hematology and Cell countsOrdered By: Alfredo Phipps on 01-07-2023 Erythrocyte distribution width (RBC) [Entitic vol] 42.5 fL 35.1-43.9 [facility] Erythrocyte distribution width (RBC) [Ratio] 13.1 % 11.6-14.6 [facility] Immature granulocytes/100 WBC (Bld) 0.600 % 0.0-0.9 [facility] Comment on above: IG% - Immature Granu locytes (promyelocytes, myelocytes and metamyelocytes) > 1% indicates that a LEFT SHIFT is Present. MCH (RBC) [Entitic mass] 28.9 pg 27.0-32.0 [facility] Nucleated RBC/100 WBC (Bld) [Ratio] 0 % 0-5 [facility] MCHC Auto (RBC) [Mass/Vol]Or dered By: Alfredo Phipps on 01-07-2023 MCHC (RBC) [Mass/Vol] 32.2 g/dL 32-36 [facility] No Panel InformationOrdered By: Alfredo Phipps on 01-07-2023 Estimated GFR (MDRD) Amer 48 mL/min >60 [facility] Comment on above: GFR Calc Estimated GFR (MDRD) Non-Af Amer 40 mL/min >60 [facility] Comment on above: Non- GFR Calc [place] Level 0.30 mmol/L 0.60-1.20 [facility] Platelets bldOrdered By: Jennifer Phipps on 01-07-2023 Platelets (Bld) [#/Vol] 203 10*3/uL 150-450 [facility] Serum or plasma albumin you urement (mass/volume)Ordered By: Alfredo Phipps on 01-07-2023 Albumin [Mass/Vol] 2.9 g/dL 3.2-5.0 [facility] Serum or plasma calcium you urement (mass/volume)Ordered By: Alfredo Phipps on 01-07-2023 Calcium [Mass/Vol] 9.0 mg/dL 8.5-10.1 [facility] Serum or plasma creatinine m easurement (mass/volume)Ordered By: Alfredo Phipps on 01-07-2023 Creatinine [Mass/Vol] 1.86 mg/dL 0.70-1.30 [facility] Comment on above: The validity of the calculated GFR & GFRAA in patients over 70 years has not been determined. Clinical correlation is essential. Serum or plasma urea nitroge n measurement (mass/volume)Ordered By: Alfredo Phipps on 01-07-2023 Urea nitrogen [Mass/Vol] 25 mg/dL 7-18 [facility] Serum or plasma uric acid me asurement (mass/volume)Ordered By: Adam Ferraro on 12-28-2022 Urate [Mass/Vol] 5.9 mg/dL 3.5-7.2 [facility] Comment on above: The drugs N-Acetylcy steine and Metamizole may falsely depress this assay. Urine creatinine measurement (mass/volume)Ordered By: Adam Ferraro on 12-15-2022 Creatinine (U) [Mass/Vol] 141.00 mg/dL NO RANGE EST. [facility] Urine protein measurement (m ass/volume)Ordered By: Adam Ferraro on 12-15-2022 Protein (U) [Mass/Vol] 29.9 mg/dL 0.0-11.8 [facility] Urine protein/creatinine mas s ratioOrdered By: Adam Ferraro on 12-15-2022 Protein/Creatinine (U) [Mass ratio] 212 mg/g CRE 0-200 [facility] Absolute lymphocyte countOrd ered By: Adam Ferraro on 12-10-2022 Lymphocytes Auto (Unsp spec) [#/Vol] 1.96 10*3/uL 0.83-4.51 [facility] Basophil percentageOrdered B y: Adam Ferraro on 12-10-2022 Basophil percentage 4.0 mg/dL 2.5-4.9 [facility] Basophils/100 WBC (Bld) 1.2 % 0-1 [facility] Chloride [Moles/Vol] 106 mmol/L 98-[address] [facility] Eosinophils/100 WBC (Bld) 3.6 % 0-5 [facility] Glucose [Mass/Vol] 155 mg/dL 74-106 [facility] Comment on above: Fasting Glucose resu lt greater than or equal to 126 mg/dL suggests DIABETES MELLITUS per A.D.A. criteria. Neutrophils (Bld) [#/Vol] 4.9 10*3/uL 2.0-7.7 [facility] Neutrophils/100 WBC (Bld) 60.1 % 47-70 [facility] Potassium [Moles/Vol] 4.1 mmol/L 3.5-5.1 [facility] Sodium [Moles/Vol] 140 mmol/L 136-145 [facility] WBC (Bld) [#/Vol] 8.1 10*3/uL 4.4-11.0 [facility] Blood erythrocytes count (nu mber/volume)Ordered By: Adam Ferraro on 12-10-2022 RBC (Bld) [#/Vol] 4.96 10*6/uL 4.6-6.2 [facility] Blood hemoglobin measurement (mass/volume)Ordered By: Adam Ferraro on 12-10-2022 Hemoglobin (Bld) [Mass/Vol] 14.4 g/dL 13.0-16.5 [facility] Blood lymphocytes/100 leukoc ytesOrdered By: Adam Ferraro on 12-10-2022 Lymphocytes/100 WBC (Bld) 24.1 % 19-41 [facility] Blood monocytes/100 leukocyt esOrdered By: Adam Ferraro on 12-10-2022 Monocytes/100 WBC (Bld) 10.6 % 0-10 [facility] Blood platelet mean volumeOr dered By: Adam Ferraro on 12-10-2022 Platelet mean volume (Bld) [Entitic vol] 9.8 fL 6.2-12.0 [facility] Determination of erythrocyte mean corpuscular volume (MCV)Ordered By: Adam Ferraro on 12-10-2022 MCV (RBC) [Entitic vol] 89.5 fL 80-94 [facility] Hematocrit Auto (Bld) [Volum e fraction]Ordered By: Adam Ferraro on 12-10-2022 Hematocrit (Bld) [Volume fraction] 44.4 % 40-54 [facility] Laboratory - Chemistry and C hemistry - challengeOrdered By: Adam Ferraro on 12-10-2022 CO2 [Moles/Vol] 26.0 mmol/L 21.0-32.0 [facility] Urea nitrogen/Creatinine [Mass ratio] 10.1 mg/mg 10-20 [facility] Laboratory - Hematology and Cell countsOrdered By: Adam Ferraro on 12-10-2022 Erythrocyte distribution width (RBC) [Entitic vol] 42.6 fL 35.1-43.9 [facility] Erythrocyte distribution width (RBC) [Ratio] 13.0 % 11.6-14.6 [facility] Immature granulocytes/100 WBC (Bld) 0.400 % 0.0-0.9 [facility] Comment on above: IG% - Immature Granu locytes (promyelocytes, myelocytes and metamyelocytes) > 1% indicates that a LEFT SHIFT is Present. MCH (RBC) [Entitic mass] 29.0 pg 27.0-32.0 [facility] Nucleated RBC/100 WBC (Bld) [Ratio] 0 % 0-5 [facility] MCHC Auto (RBC) [Mass/Vol]Or dered By: Adam Ferraro on 12-10-2022 MCHC (RBC) [Mass/Vol] 32.4 g/dL 32-36 [facility] No Panel InformationOrdered By: Adam Ferraro on 12-10-2022 Estimated GFR (MDRD) Amer 50 mL/min >60 [facility] Comment on above: GFR Calc Estimated GFR (MDRD) Non-Af Amer 41 mL/min >60 [facility] Comment on above: Non- GFR Calc [place] Level 0.50 mmol/L 0.60-1.20 [facility] Platelets bldOrdered By: Benoit Ferraro on 12-10-2022 Platelets (Bld) [#/Vol] 213 10*3/uL 150-450 [facility] Serum or plasma albumin you urement (mass/volume)Ordered By: Adam Ferraro on 12-10-2022 Albumin [Mass/Vol] 2.8 g/dL 3.2-5.0 [facility] Serum or plasma calcium you urement (mass/volume)Ordered By: Adam Ferraro on 12-10-2022 Calcium [Mass/Vol] 8.8 mg/dL 8.5-10.1 [facility] Serum or plasma creatinine m easurement (mass/volume)Ordered By: Adam Ferraro on 12-10-2022 Creatinine [Mass/Vol] 1.79 mg/dL 0.70-1.30 [facility] Comment on above: The validity of the calculated GFR & GFRAA in patients over 70 years has not been determined. Clinical correlation is essential. Serum or plasma urea nitroge n measurement (mass/volume)Ordered By: Adam Ferraro on 12-10-2022 Urea nitrogen [Mass/Vol] 18 mg/dL 7-18 [facility] Urine creatinine measurement (mass/volume)Ordered By: Adam Ferraro on 11-17-2022 Creatinine (U) [Mass/Vol] 74.70 mg/dL NO RANGE EST. [facility] Urine protein measurement (m ass/volume)Ordered By: Adam Ferraro on 11-17-2022 Protein (U) [Mass/Vol] 16.5 mg/dL 0.0-11.8 [facility] Urine protein/creatinine mas s ratioOrdered By: Adam Ferraro on 11-17-2022 Protein/Creatinine (U) [Mass ratio] 221 mg/g CRE 0-200 [facility] Absolute lymphocyte countOrd ered By: Alfredo Phipps on 11-12-2022 Lymphocytes Auto (Unsp spec) [#/Vol] 2.11 10*3/uL 0.83-4.51 [facility] Basophil percentageOrdered B y: Alfredo Phipps on 11-12-2022 Basophil percentage 3.3 mg/dL 2.5-4.9 [facility] Basophils/100 WBC (Bld) 0.7 % 0-1 [facility] Chloride [Moles/Vol] 106 mmol/L 98-[address] [facility] Eosinophils/100 WBC (Bld) 2.4 % 0-5 [facility] Glucose [Mass/Vol] 169 mg/dL 74-106 [facility] Comment on above: Fasting Glucose resu lt greater than or equal to 126 mg/dL suggests DIABETES MELLITUS per A.D.A. criteria. Neutrophils (Bld) [#/Vol] 6.1 10*3/uL 2.0-7.7 [facility] Neutrophils/100 WBC (Bld) 63.5 % 47-70 [facility] Potassium [Moles/Vol] 3.5 mmol/L 3.5-5.1 [facility] Sodium [Moles/Vol] 138 mmol/L 136-145 [facility] WBC (Bld) [#/Vol] 9.6 10*3/uL 4.4-11.0 [facility] Blood erythrocytes count (nu mber/volume)Ordered By: Alfredo Phipps on 11-12-2022 RBC (Bld) [#/Vol] 4.67 10*6/uL 4.6-6.2 [facility] Blood hemoglobin measurement (mass/volume)Ordered By: Alfredo Phipps on 11-12-2022 Hemoglobin (Bld) [Mass/Vol] 13.9 g/dL 13.0-16.5 [facility] Blood lymphocytes/100 leukoc ytesOrdered By: Alfredo Phipps on 11-12-2022 Lymphocytes/100 WBC (Bld) 21.9 % 19-41 [facility] Blood monocytes/100 leukocyt esOrdered By: Alfredo Phipps on 11-12-2022 Monocytes/100 WBC (Bld) 10.8 % 0-10 [facility] Blood platelet mean volumeOr dered By: Alfredo Phipps on 11-12-2022 Platelet mean volume (Bld) [Entitic vol] 9.8 fL 6.2-12.0 [facility] Determination of erythrocyte mean corpuscular volume (MCV)Ordered By: Alfredo Phipps on 11-12-2022 MCV (RBC) [Entitic vol] 89.1 fL [address] [facility] Hematocrit Auto (Bld) [Volum e fraction]Ordered By: Alfredo Phipps on 11-12-2022 Hematocrit (Bld) [Volume fraction] 41.6 % 40-54 [facility] Laboratory - Chemistry and C hemistry - challengeOrdered By: Alfredo Phipps on 11-12-2022 CO2 [Moles/Vol] 25.0 mmol/L 21.0-32.0 [facility] Urea nitrogen/Creatinine [Mass ratio] 11.4 mg/mg 10-20 [facility] Laboratory - Hematology and Cell countsOrdered By: Alfredo Phipps on 11-12-2022 Erythrocyte distribution width (RBC) [Entitic vol] 43.2 fL 35.1-43.9 [facility] Erythrocyte distribution width (RBC) [Ratio] 13.2 % 11.6-14.6 [facility] Immature granulocytes/100 WBC (Bld) 0.700 % 0.0-0.9 [facility] Comment on above: IG% - Immature Granu locytes (promyelocytes, myelocytes and metamyelocytes) > 1% indicates that a LEFT SHIFT is Present. MCH (RBC) [Entitic mass] 29.8 pg 27.0-32.0 [facility] Nucleated RBC/100 WBC (Bld) [Ratio] 0 % 0-5 [facility] MCHC Auto (RBC) [Mass/Vol]Or dered By: Alfredo Phipps on 11-12-2022 MCHC (RBC) [Mass/Vol] 33.4 g/dL 32-36 [facility] No Panel InformationOrdered By: Alfredo Phipps on 11-12-2022 Estimated GFR (MDRD) Amer 48 mL/min >60 [facility] Comment on above: GFR Calc Estimated GFR (MDRD) Non-Af Amer 40 mL/min >60 [facility] Comment on above: Non- GFR Calc [place] Level 0.40 mmol/L 0.60-1.20 [facility] Platelets bldOrdered By: Jennifer Phipps on 11-12-2022 Platelets (Bld) [#/Vol] 200 10*3/uL 150-450 [facility] Serum or plasma albumin you urement (mass/volume)Ordered By: Alfredo Phipps on 11-12-2022 Albumin [Mass/Vol] 2.9 g/dL 3.2-5.0 [facility] Serum or plasma calcium you urement (mass/volume)Ordered By: Alfredo Phipps on 11-12-2022 Calcium [Mass/Vol] 8.7 mg/dL 8.5-10.1 [facility] Serum or plasma creatinine m easurement (mass/volume)Ordered By: Alfredo Phipps on 11-12-2022 Creatinine [Mass/Vol] 1.85 mg/dL 0.70-1.30 [facility] Comment on above: The validity of the calculated GFR & GFRAA in patients over 70 years has not been determined. Clinical correlation is essential. Serum or plasma urea nitroge n measurement (mass/volume)Ordered By: Alfredo Phipps on 11-12-2022 Urea nitrogen [Mass/Vol] 21 mg/dL 7-18 [facility] Serum or plasma uric acid me asurement (mass/volume)Ordered By: Alfredo Phipps on 10-27-2022 Urate [Mass/Vol] 6.4 mg/dL 3.5-7.2 [facility] Comment on above: The drugs N-Acetylcy steine and Metamizole may falsely depress this assay. Absolute lymphocyte countOrd ered By: Alfredo Phipps on 10-15-2022 Lymphocytes Auto (Unsp spec) [#/Vol] 2.30 10*3/uL 0.83-4.51 [facility] Basophil percentageOrdered B y: Alfredo Phipps on 10-15-2022 Basophil percentage 4.2 mg/dL 2.5-4.9 [facility] Basophils/100 WBC (Bld) 1.0 % 0-1 [facility] Chloride [Moles/Vol] 108 mmol/L 98-[address] [facility] Eosinophils/100 WBC (Bld) 3.2 % 0-5 [facility] Glucose [Mass/Vol] 168 mg/dL 74-106 [facility] Comment on above: Fasting Glucose resu lt greater than or equal to 126 mg/dL suggests DIABETES MELLITUS per A.D.A. criteria. Neutrophils (Bld) [#/Vol] 4.8 10*3/uL 2.0-7.7 [facility] Neutrophils/100 WBC (Bld) 58.3 % 47-70 [facility] Potassium [Moles/Vol] 4.1 mmol/L 3.5-5.1 [facility] Comment on above: Slight Hemolysis, Re sult may be falsely increased. Sodium [Moles/Vol] 140 mmol/L 136-145 [facility] WBC (Bld) [#/Vol] 8.3 10*3/uL 4.4-11.0 [facility] Blood erythrocytes count (nu mber/volume)Ordered By: Alfredo Phipps on 10-15-2022 RBC (Bld) [#/Vol] 4.81 10*6/uL 4.6-6.2 [facility] Blood hemoglobin measurement (mass/volume)Ordered By: Alfredo Phipps on 10-15-2022 Hemoglobin (Bld) [Mass/Vol] 13.9 g/dL 13.0-16.5 [facility] Blood lymphocytes/100 leukoc ytesOrdered By: Alfredo Phipps on 10-15-2022 Lymphocytes/100 WBC (Bld) 27.6 % 19-41 [facility] Blood monocytes/100 leukocyt esOrdered By: Alfredo Phipps on 10-15-2022 Monocytes/100 WBC (Bld) 9.1 % 0-10 [facility] Blood platelet mean volumeOr dered By: Alfredo Phipps on 10-15-2022 Platelet mean volume (Bld) [Entitic vol] 10.1 fL 6.2-12.0 [facility] Determination of erythrocyte mean corpuscular volume (MCV)Ordered By: Alfredo Phipps on 10-15-2022 MCV (RBC) [Entitic vol] 89.4 fL 80-94 [facility] Hematocrit Auto (Bld) [Volum e fraction]Ordered By: Alfredo Phipps on 10-15-2022 Hematocrit (Bld) [Volume fraction] 43.0 % 40-54 [facility] Laboratory - Chemistry and C hemistry - challengeOrdered By: Alfredo Phipps on 10-15-2022 CO2 [Moles/Vol] 28.0 mmol/L 21.0-32.0 [facility] Urea nitrogen/Creatinine [Mass ratio] 11.3 mg/mg 10-20 [facility] Laboratory - Hematology and Cell countsOrdered By: Alfredo Phipps on 10-15-2022 Erythrocyte distribution width (RBC) [Entitic vol] 42.9 fL 35.1-43.9 [facility] Erythrocyte distribution width (RBC) [Ratio] 13.2 % 11.6-14.6 [facility] Immature granulocytes/100 WBC (Bld) 0.800 % 0.0-0.9 [facility] Comment on above: IG% - Immature Granu locytes (promyelocytes, myelocytes and metamyelocytes) > 1% indicates that a LEFT SHIFT is Present. MCH (RBC) [Entitic mass] 28.9 pg 27.0-32.0 [facility] Nucleated RBC/100 WBC (Bld) [Ratio] 0 % 0-5 [facility] MCHC Auto (RBC) [Mass/Vol]Or dered By: Alfredo Phipps on 10-15-2022 MCHC (RBC) [Mass/Vol] 32.3 g/dL 32-36 [facility] No Panel InformationOrdered By: Alfredo Phipps on 10-15-2022 Estimated GFR (MDRD) Amer 46 mL/min >60 [facility] Comment on above: GFR Calc Estimated GFR (MDRD) Non-Af Amer 38 mL/min >60 [facility] Comment on above: Non- GFR Calc [place] Level 0.50 mmol/L 0.60-1.20 [facility] Platelets bldOrdered By: Jennifer Phipps on 10-15-2022 Platelets (Bld) [#/Vol] 200 10*3/uL 150-450 [facility] Serum or plasma albumin you urement (mass/volume)Ordered By: Alfredo Phipps on 10-15-2022 Albumin [Mass/Vol] 2.9 g/dL 3.2-5.0 [facility] Serum or plasma calcium you urement (mass/volume)Ordered By: Alfredo Phipps on 10-15-2022 Calcium [Mass/Vol] 9.1 mg/dL 8.5-10.1 [facility] Serum or plasma creatinine m easurement (mass/volume)Ordered By: Alfredo Phipps on 10-15-2022 Creatinine [Mass/Vol] 1.94 mg/dL 0.70-1.30 [facility] Comment on above: The validity of the calculated GFR & GFRAA in patients over 70 years has not been determined. Clinical correlation is essential. Serum or plasma urea nitroge n measurement (mass/volume)Ordered By: Alfredo Phipps on 10-15-2022 Urea nitrogen [Mass/Vol] 22 mg/dL 7-18 [facility] Serum or plasma uric acid me asurement (mass/volume)Ordered By: Alfredo Phipps on 09-27-2022 Urate [Mass/Vol] 7.0 mg/dL 3.5-7.2 [facility] Comment on above: The drugs N-Acetylcy steine and Metamizole may falsely depress this assay. Absolute lymphocyte countOrd ered By: Adam Ferraro on 09-17-2022 Lymphocytes Auto (Unsp spec) [#/Vol] 2.69 10*3/uL 0.83-4.51 [facility] Basophil percentageOrdered B y: Adam Ferraro on 09-17-2022 Basophil percentage 3.8 mg/dL 2.5-4.9 [facility] Basophils/100 WBC (Bld) 0.9 % 0-1 [facility] Chloride [Moles/Vol] 105 mmol/L 98-[address] [facility] Eosinophils/100 WBC (Bld) 3.2 % 0-5 [facility] Glucose [Mass/Vol] 141 mg/dL 74-106 [facility] Comment on above: Fasting Glucose resu lt greater than or equal to 126 mg/dL suggests DIABETES MELLITUS per A.D.A. criteria. Neutrophils (Bld) [#/Vol] 5.1 10*3/uL 2.0-7.7 [facility] Neutrophils/100 WBC (Bld) 56.1 % 47-70 [facility] Potassium [Moles/Vol] 3.8 mmol/L 3.5-5.1 [facility] Sodium [Moles/Vol] 139 mmol/L 136-145 [facility] WBC (Bld) [#/Vol] 9.0 10*3/uL 4.4-11.0 [facility] Blood erythrocytes count (nu mber/volume)Ordered By: Adam Ferraro on 09-17-2022 RBC (Bld) [#/Vol] 4.99 10*6/uL 4.6-6.2 [facility] Blood hemoglobin measurement (mass/volume)Ordered By: Adam Ferraro on 09-17-2022 Hemoglobin (Bld) [Mass/Vol] 14.8 g/dL 13.0-16.5 [facility] Blood lymphocytes/100 leukoc ytesOrdered By: Adam Ferraro on 09-17-2022 Lymphocytes/100 WBC (Bld) 29.8 % 19-41 [facility] Blood monocytes/100 leukocyt esOrdered By: Adam Ferraro on 09-17-2022 Monocytes/100 WBC (Bld) 9.4 % 0-10 [facility] Blood platelet mean volumeOr dered By: Adam Ferraro on 09-17-2022 Platelet mean volume (Bld) [Entitic vol] 10.2 fL 6.2-12.0 [facility] Determination of erythrocyte mean corpuscular volume (MCV)Ordered By: Adam Ferraro on 09-17-2022 MCV (RBC) [Entitic vol] 88.6 fL 80-94 [facility] Hematocrit Auto (Bld) [Volum e fraction]Ordered By: Adam Ferraro on 09-17-2022 Hematocrit (Bld) [Volume fraction] 44.2 % 40-54 [facility] Laboratory - Chemistry and C hemistry - challengeOrdered By: Adam Ferraro on 09-17-2022 CO2 [Moles/Vol] 26.0 mmol/L 21.0-32.0 [facility] Urea nitrogen/Creatinine [Mass ratio] 11.4 mg/mg 10-20 [facility] Laboratory - Hematology and Cell countsOrdered By: Adam Ferraro on 09-17-2022 Erythrocyte distribution width (RBC) [Entitic vol] 42.8 fL 35.1-43.9 [facility] Erythrocyte distribution width (RBC) [Ratio] 13.2 % 11.6-14.6 [facility] Immature granulocytes/100 WBC (Bld) 0.600 % 0.0-0.9 [facility] Comment on above: IG% - Immature Granu locytes (promyelocytes, myelocytes and metamyelocytes) > 1% indicates that a LEFT SHIFT is Present. MCH (RBC) [Entitic mass] 29.7 pg 27.0-32.0 [facility] Nucleated RBC/100 WBC (Bld) [Ratio] 0 % 0-5 [facility] MCHC Auto (RBC) [Mass/Vol]Or dered By: Adam Ferraro on 09-17-2022 MCHC (RBC) [Mass/Vol] 33.5 g/dL 32-36 [facility] No Panel InformationOrdered By: Adam Ferraro on 09-17-2022 [place] Level 0.50 mmol/L 0.60-1.20 [facility] Estimated GFR (MDRD) Amer 51 mL/min >60 [facility] Comment on above: GFR Calc Estimated GFR (MDRD) Non-Af Amer 42 mL/min >60 [facility] Comment on above: Non- GFR Calc Platelets bldOrdered By: Benoit Ferraro on 09-17-2022 Platelets (Bld) [#/Vol] 178 10*3/uL 150-450 [facility] Serum or plasma albumin you urement (mass/volume)Ordered By: Adam Ferraro on 09-17-2022 Albumin [Mass/Vol] 3.0 g/dL 3.2-5.0 [facility] Serum or plasma calcium you urement (mass/volume)Ordered By: Adam Ferraro on 09-17-2022 Calcium [Mass/Vol] 9.0 mg/dL 8.5-10.1 [facility] Serum or plasma creatinine m easurement (mass/volume)Ordered By: Adam Ferraro on 09-17-2022 Creatinine [Mass/Vol] 1.76 mg/dL 0.70-1.30 [facility] Comment on above: The validity of the calculated GFR & GFRAA in patients over 70 years has not been determined. Clinical correlation is essential. Serum or plasma urea nitroge n measurement (mass/volume)Ordered By: Adam Ferraro on 09-17-2022 Urea nitrogen [Mass/Vol] 20 mg/dL 7-18 [facility] Urine creatinine measurement (mass/volume)Ordered By: Adam Ferraro on 09-17-2022 Creatinine (U) [Mass/Vol] 128.00 mg/dL NO RANGE EST. [facility] Urine protein measurement (m ass/volume)Ordered By: Adam Ferraro on 09-17-2022 Protein (U) [Mass/Vol] 20.9 mg/dL 0.0-11.8 [facility] Urine protein/creatinine mas s ratioOrdered By: Adam Ferraro on 09-17-2022 Protein/Creatinine (U) [Mass ratio] 163 mg/g CRE 0-200 [facility] Serum or plasma uric acid me asurement (mass/volume)Ordered By: Adam Ferraro on 08-27-2022 Urate [Mass/Vol] 6.4 mg/dL 3.5-7.2 [facility] Comment on above: The drugs N-Acetylcy steine and Metamizole may falsely depress this assay. No Panel InformationOrdered By: Adam Ferraro on 08-23-2022 [place] Level 0.40 mmol/L 0.60-1.20 [facility] Culture, urineOrdered By: Chan Fiore on 08-15-2022 Bacteria identified Cx Nom (U) Streptococcus mitis [facility] Absolute lymphocyte countOrd ered By: Alfredo Phipps on 08-12-2022 Lymphocytes Auto (Unsp spec) [#/Vol] 2.09 10*3/uL 0.83-4.51 [facility] Basophil percentageOrdered B y: Alfredo Phipps on 08-12-2022 Basophil percentage 3.6 mg/dL 2.5-4.9 [facility] Basophils/100 WBC (Bld) 0.9 % 0-1 [facility] Chloride [Moles/Vol] 107 mmol/L 98-[address] [facility] Eosinophils/100 WBC (Bld) 2.8 % 0-5 [facility] Glucose [Mass/Vol] 151 mg/dL 74-106 [facility] Comment on above: Fasting Glucose resu lt greater than or equal to 126 mg/dL suggests DIABETES MELLITUS per A.D.A. criteria. Neutrophils (Bld) [#/Vol] 5.5 10*3/uL 2.0-7.7 [facility] Neutrophils/100 WBC (Bld) 63.4 % 47-70 [facility] Potassium [Moles/Vol] 4.0 mmol/L 3.5-5.1 [facility] Sodium [Moles/Vol] 140 mmol/L 136-145 [facility] WBC (Bld) [#/Vol] 8.7 10*3/uL 4.4-11.0 [facility] Basophil percentage 10-25 SEEN /hpf 0-5 [facility] Bilirubin Test strip Ql (U)O rdered By: Alfredo Phipps on 08-12-2022 Bilirubin Ql (U) Negative Negative [facility] Blood erythrocytes count (nu mber/volume)Ordered By: Alfredo Phipps on 08-12-2022 RBC (Bld) [#/Vol] 4.92 10*6/uL 4.6-6.2 [facility] Blood hemoglobin measurement (mass/volume)Ordered By: Alfredo Phipps on 08-12-2022 Hemoglobin (Bld) [Mass/Vol] 14.5 g/dL 13.0-16.5 [facility] Blood lymphocytes/100 leukoc ytesOrdered By: Alfredo Phipps on 08-12-2022 Lymphocytes/100 WBC (Bld) 24.1 % 19-41 [facility] Blood monocytes/100 leukocyt esOrdered By: Alfredo Phipps on 08-12-2022 Monocytes/100 WBC (Bld) 8.3 % 0-10 [facility] Blood platelet mean volumeOr dered By: Alfredo Phipps on 08-12-2022 Platelet mean volume (Bld) [Entitic vol] 9.8 fL 6.2-12.0 [facility] Determination of erythrocyte mean corpuscular volume (MCV)Ordered By: Alfredo Phipps on 08-12-2022 MCV (RBC) [Entitic vol] 91.1 fL 80-94 [facility] Hematocrit Auto (Bld) [Volum e fraction]Ordered By: Alfredo Phipps on 08-12-2022 Hematocrit (Bld) [Volume fraction] 44.8 % 40-54 [facility] Ketones Test strip Ql (U)Ord ered By: Alfredo Phipps on 08-12-2022 Ketones Ql (U) Negative Negative [facility] Laboratory - Chemistry and C hemistry - challengeOrdered By: Alfredo Phipps on 08-12-2022 CO2 [Moles/Vol] 25.0 mmol/L 21.0-32.0 [facility] Urea nitrogen/Creatinine [Mass ratio] 14.9 mg/mg 10-20 [facility] Laboratory - Hematology and Cell countsOrdered By: Alfredo Phipps on 08-12-2022 Erythrocyte distribution width (RBC) [Entitic vol] 43.3 fL 35.1-43.9 [facility] Erythrocyte distribution width (RBC) [Ratio] 12.9 % 11.6-14.6 [facility] Immature granulocytes/100 WBC (Bld) 0.500 % 0.0-0.9 [facility] Comment on above: IG% - Immature Granu locytes (promyelocytes, myelocytes and metamyelocytes) > 1% indicates that a LEFT SHIFT is Present. MCH (RBC) [Entitic mass] 29.5 pg 27.0-32.0 [facility] Nucleated RBC/100 WBC (Bld) [Ratio] 0 % 0-5 [facility] MCHC Auto (RBC) [Mass/Vol]Or dered By: Alfredo Phipps on 08-12-2022 MCHC (RBC) [Mass/Vol] 32.4 g/dL 32-36 [facility] Mucus LM Ql (Urine sed)Order ed By: Alfredo Phipps on 08-12-2022 Mucus Ql (Urine sed) Not Reportable [facility] Nitrite Test strip Ql (U)Ord ered By: Alfredo Phipps on 08-12-2022 Nitrite Ql (U) Negative Negative [facility] No Panel InformationOrdered By: Alfredo Phipps on 08-12-2022 Estimated GFR (MDRD) Amer 54 mL/min >60 [facility] Comment on above: GFR Calc Estimated GFR (MDRD) Non-Af Amer 45 mL/min >60 [facility] Comment on above: Non- GFR Calc Platelets bldOrdered By: Pet er Desire on 08-12-2022 Platelets (Bld) [#/Vol] 238 10*3/uL 150-450 [facility] Protein Test strip Ql (U)Ord ered By: Alfredo Phipps on 08-12-2022 Protein Ql (U) 15 mg/dl Negative [facility] Serum or plasma albumin oyu urement (mass/volume)Ordered By: Alfredo Phipps on 08-12-2022 Albumin [Mass/Vol] 2.9 g/dL 3.2-5.0 [facility] Serum or plasma calcium you urement (mass/volume)Ordered By: Alfredo Phipps on 08-12-2022 Calcium [Mass/Vol] 9.2 mg/dL 8.5-10.1 [facility] Serum or plasma creatinine m easurement (mass/volume)Ordered By: Alfredo Phipps on 08-12-2022 Creatinine [Mass/Vol] 1.68 mg/dL 0.70-1.30 [facility] Comment on above: The validity of the calculated GFR & GFRAA in patients over 70 years has not been determined. Clinical correlation is essential. Serum or plasma urea nitroge n measurement (mass/volume)Ordered By: Alfredo Phipps on 08-12-2022 Urea nitrogen [Mass/Vol] 25 mg/dL 7-18 [facility] Squamous epithelial cells de tection in urine sediment by light microscopyOrdered By: Alfredo Phipps on 08-12-2022 Epithelial cells.squamous LM Ql (Urine sed) 0-5 SEEN /hpf 0-5 [facility] Urine blood detectionOrdered By: Alfredo Phipps on 08-12-2022 RBC Ql (U) Negative Negative [facility] RBC Ql (U) 0 SEEN /hpf 0-5 [facility] Urine clarityOrdered By: Pet er Desire on 08-12-2022 Clarity (U) Clear Clear [facility] Urine color determinationOrd ered By: Alfredo Phipps on 08-12-2022 Color (U) Yellow Yellow [facility] Urine creatinine measurement (mass/volume)Ordered By: Alfredo Phipps on 08-12-2022 Creatinine (U) [Mass/Vol] 102.00 mg/dL NO RANGE EST. [facility] Urine glucose detectionOrder ed By: Alfredo Phipps on 08-12-2022 Glucose Ql (U) Normal mg/dl Normal [facility] Urine leukocyte esterase det ection by dipstickOrdered By: Alfredo Phipps on 08-12-2022 Leukocyte esterase Test strip Ql (U) 500 /ul Negative [facility] Urine pHOrdered By: Alfredo saha on 08-12-2022 pH (U) 6.0 [pH] 5.0 - 8.0 [facility] Urine protein measurement (m ass/volume)Ordered By: Alfredo Phipps on 08-12-2022 Protein (U) [Mass/Vol] 19.9 mg/dL 0.0-11.8 [facility] Urine protein/creatinine mas s ratioOrdered By: Alfredo Phipps on 08-12-2022 Protein/Creatinine (U) [Mass ratio] 195 mg/g CRE 0-200 [facility] Urine sediment bacteria coun t by microscopy (number/high power field)Ordered By: Alfredo Phipps on 08-12-2022 Bacteria LM.HPF (Urine sed) [#/Area] RARE /hpf None Seen [facility] Urine specific gravity measu rementOrdered By: Alfredo Phipps on 08-12-2022 Specific gravity (U) [Rel density] 1.015 1.002-1.03 0 [facility] Urobilinogen Auto test strip Ql (U)Ordered By: Alfredo Phipps on 08-12-2022 Urobilinogen Ql (U) Normal mg/dl Normal [facility] No Panel Informationon 07-28 [place] Level 0.60 mmol/L 0.60-1.20 [facility] Work Phone: Serum or plasma uric acid me asurement (mass/volume)on 07-28-2022 Urate [Mass/Vol] 6.3 mg/dL 3.5-7.2 [facility] Work Phone: Comment on above: The drugs N-Acetylcy steine and Metamizole may falsely depress this assay. URINALYSIS, REFLEX MICROSCOP ICon 07-27-2022 Bilirubin Ql (U) Negative Negative [facility] Clarity (Unsp spec) Clear Clear [facility] Color (U) Colorless Yellow [facility] Glucose Test strip (U) [Mass/Vol] Negative Negative [facility] Hemoglobin Ql (U) Negative Negative [facility] Ketones Ql (U) Negative Negative [facility] Leukocyte esterase Test strip Ql (U) Negative Negative [facility] Nitrite Ql (U) Negative Negative [facility] pH (U) 6.5 [pH] 5.0 - 8.0 [facility] Protein (U) [Mass/Vol] Negative Negative [facility] Specific gravity (U) [Rel density] 1.009 1.005 - 1.030 [facility] Urobilinogen Ql (U) Negative Negative [facility] Absolute lymphocyte counton 07-15-2022 Lymphocytes Auto (Unsp spec) [#/Vol] 1.93 10*3/uL 0.83-4.51 [facility] Work Phone: Basophil percentageon 2021 Basophil percentage 3.9 mg/dL 2.5-4.9 [facility] Work Phone: Basophils/100 WBC (Bld) 1.3 % 0-1 [facility] Work Phone: Chloride [Moles/Vol] 107 mmol/L 98-[address] [facility] Work Phone: [phone] Eosinophils/100 WBC (Bld) 1.7 % 0-5 [facility] Work Phone: [phone] Glucose [Mass/Vol] 126 mg/dL 74-106 [facility] Work Phone: [phone] Comment on above: Fasting Glucose resu lt greater than or equal to 126 mg/dL suggests DIABETES MELLITUS per A.D.A. criteria. Neutrophils (Bld) [#/Vol] 6.1 10*3/uL 2.0-7.7 [facility] Work Phone: Neutrophils/100 WBC (Bld) 66.5 % 47-70 [facility] Work Phone: Potassium [Moles/Vol] 4.4 mmol/L 3.5-5.1 [facility] Work Phone: Sodium [Moles/Vol] 139 mmol/L 136-145 [facility] Work Phone: WBC (Bld) [#/Vol] 9.2 10*3/uL 4.4-11.0 [facility] Work Phone: [phone] Bilirubin Test strip Ql (U)o n 07-15-2022 Bilirubin Ql (U) Negative Negative [facility] Work Phone: [phone] Blood erythrocytes count (nu mber/volume)on 07-15-2022 RBC (Bld) [#/Vol] 5.01 10*6/uL 4.6-6.2 [facility] Work Phone: Blood hemoglobin measurement (mass/volume)on 07-15-2022 Hemoglobin (Bld) [Mass/Vol] 14.8 g/dL 13.0-16.5 [facility] Work Phone: Blood lymphocytes/100 leukoc yteson 07-15-2022 Lymphocytes/100 WBC (Bld) 20.9 % 19-41 [facility] Work Phone: Blood monocytes/100 leukocyt eson 07-15-2022 Monocytes/100 WBC (Bld) 8.9 % 0-10 [facility] Work Phone: Blood platelet mean volumeon 07-15-2022 Platelet mean volume (Bld) [Entitic vol] 9.7 fL 6.2-12.0 [facility] Work Phone: Determination of erythrocyte mean corpuscular volume (MCV)on 07-15-2022 MCV (RBC) [Entitic vol] 91.8 fL 80-94 [facility] Work Phone: Hematocrit Auto (Bld) [Volum e fraction]on 07-15-2022 Hematocrit (Bld) [Volume fraction] 46.0 % 40-54 [facility] Work Phone: [phone] Ketones Test strip Ql (U)on 07-15-2022 Ketones Ql (U) Negative Negative [facility] Work Phone: Laboratory - Chemistry and C hemistry - challengeon 07-15-2022 CO2 [Moles/Vol] 25.0 mmol/L 21.0-32.0 [facility] Work Phone: [phone] Urea nitrogen/Creatinine [Mass ratio] 14.9 mg/mg 10-20 [facility] Work Phone: [phone] Laboratory - Hematology and Cell countson 07-15-2022 Erythrocyte distribution width (RBC) [Entitic vol] 44.0 fL 35.1-43.9 [facility] Work Phone: [phone] Erythrocyte distribution width (RBC) [Ratio] 13.1 % 11.6-14.6 [facility] Work Phone: [phone] Immature granulocytes/100 WBC (Bld) 0.700 % 0.0-0.9 [facility] Work Phone: Comment on above: IG% - Immature Granu locytes (promyelocytes, myelocytes and metamyelocytes) > 1% indicates that a LEFT SHIFT is Present. MCH (RBC) [Entitic mass] 29.5 pg 27.0-32.0 [facility] Work Phone: [phone] Nucleated RBC/100 WBC (Bld) [Ratio] 0 % 0-5 [facility] Work Phone: [phone] MCHC Auto (RBC) [Mass/Vol]on 07-15-2022 MCHC (RBC) [Mass/Vol] 32.2 g/dL 32-36 [facility] Work Phone: Nitrite Test strip Ql (U)on 07-15-2022 Nitrite Ql (U) Negative Negative [facility] Work Phone: No Panel Informationon 07-15 Estimated GFR (MDRD) Amer 54 mL/min >60 [facility] Work Phone: Comment on above: GFR Calc Estimated GFR (MDRD) Non-Af Amer 45 mL/min >60 [facility] Work Phone: Comment on above: Non- GFR Calc Platelets bldon 07-15-2022 Platelets (Bld) [#/Vol] 231 10*3/uL 150-450 [facility] Work Phone: Protein Test strip Ql (U)on 07-15-2022 Protein Ql (U) 30 mg/dl Negative [facility] Work Phone: Serum or plasma albumin you urement (mass/volume)on 07-15-2022 Albumin [Mass/Vol] 3.1 g/dL 3.2-5.0 [facility] Work Phone: Serum or plasma calcium you urement (mass/volume)on 07-15-2022 Calcium [Mass/Vol] 8.6 mg/dL 8.5-10.1 [facility] Work Phone: Serum or plasma creatinine m easurement (mass/volume)on 07-15-2022 Creatinine [Mass/Vol] 1.68 mg/dL 0.70-1.30 [facility] Work Phone: Comment on above: The validity of the calculated GFR & GFRAA in patients over 70 years has not been determined. Clinical correlation is essential. Serum or plasma urea nitroge n measurement (mass/volume)on 07-15-2022 Urea nitrogen [Mass/Vol] 25 mg/dL 7-18 [facility] Work Phone: Urine blood detectionon - RBC Ql (U) Negative Negative [facility] Work Phone: [phone] Urine clarityon 07-15-2022 Clarity (U) Sl. Cloudy Clear [facility] Work Phone: [phone] Urine color determinationon 07-15-2022 Color (U) Yellow Yellow [facility] Work Phone: Urine creatinine measurement (mass/volume)on 07-15-2022 Creatinine (U) [Mass/Vol] 114.00 mg/dL NO RANGE EST. [facility] Work Phone: Urine glucose detectionon Glucose Ql (U) Normal mg/dl Normal [facility] Work Phone: Urine leukocyte esterase det ection by dipstickon 07-15-2022 Leukocyte esterase Test strip Ql (U) 100 /ul Negative [facility] Work Phone: Urine pHon 07-15-2022 pH (U) 6.0 [pH] 5.0 - 8.0 [facility] Work Phone: [phone] Urine protein measurement (m ass/volume)on 07-15-2022 Protein (U) [Mass/Vol] 26.5 mg/dL 0.0-11.8 [facility] Work Phone: [phone] Urine protein/creatinine mas s ratioon 07-15-2022 Protein/Creatinine (U) [Mass ratio] 232 mg/g CRE 0-200 [facility] Work Phone: [phone] Urine specific gravity measu rementon 07-15-2022 Specific gravity (U) [Rel density] 1.015 1.002-1.03 0 [facility] Work Phone: Urobilinogen Auto test strip Ql (U)on 07-15-2022 Urobilinogen Ql (U) Normal mg/dl Normal [facility] Work Phone: [phone] Basophil percentageon 2021 Cholesterol [Mass/Vol] 149 mg/dL <200 [facility] Work Phone: [phone] Comment on above: <200 mg/dL Desirable 200-240 mg/dL Borderline >240 mg/dL High Risk Triglyceride [Mass/Vol] 379 mg/dL <199 [facility] Work Phone: Comment on above: The drugs N-Acetylcy steine and Metamizole may falsely depress this assay.Serum Triglycerides Reference Interval Normal <150 mg/dL Borderline high 150 - 199 mg/dL High 200 - 499 mg/dL Very High > or = 500 mg/dL No Panel Informationon 06-28 [place] Level 0.40 mmol/L 0.60-1.20 [facility] Work Phone: Serum or plasma cholesterol in HDL measurement (mass/volume)on 06-28-2022 Cholesterol in HDL [Mass/Vol] 34 mg/dL >40 [facility] Work Phone: Comment on above: The drugs N-Acetylcy steine and Metamizole may falsely depress this assay. Reference Range HDL <40 mg/dL Low HDL Cholesterol HDL >or= 60 mg/dL High HDL Cholesterol Serum or plasma cholesterol in VLDL measurement (mass/volume)on 06-28-2022 Cholesterol in VLDL [Mass/Vol] 76 mg/dL 5-40 [facility] Work Phone: Serum or plasma low density lipoprotein (LDL) cholesterol measurement (mass/volume)on 06-28-2022 Cholesterol in LDL [Mass/Vol] 39 mg/dL 0-130 [facility] Work Phone: Serum or plasma uric acid me asurement (mass/volume)on 06-28-2022 Urate [Mass/Vol] 5.9 mg/dL 3.5-7.2 [facility] Work Phone: Comment on above: The drugs N-Acetylcy steine and Metamizole may falsely depress this assay. Absolute lymphocyte counton 06-17-2022 Lymphocytes Auto (Unsp spec) [#/Vol] 2.02 10*3/uL 0.83-4.51 [facility] Work Phone: Basophil percentageon 2021 Basophil percentage 0-5 SEEN /hpf 0-5 [facility] Work Phone: Basophil percentage 3.8 mg/dL 2.5-4.9 [facility] Work Phone: Basophils/100 WBC (Bld) 0.8 % 0-1 [facility] Work Phone: Chloride [Moles/Vol] 108 mmol/L 98-107 [facility] Work [facility]: Eosinophils/100 WBC (Bld) 2.9 % 0-5 [facility] Work Phone: Glucose [Mass/Vol] 133 mg/dL 74-106 [facility] Work Phone: Comment on above: Fasting Glucose resu lt greater than or equal to 126 mg/dL suggests DIABETES MELLITUS per A.D.A. criteria. Neutrophils (Bld) [#/Vol] 5.3 10*3/uL 2.0-7.7 [facility] Work Phone: Neutrophils/100 WBC (Bld) 61.6 % 47-70 [facility] Work Phone: Potassium [Moles/Vol] 3.8 mmol/L 3.5-5.1 [facility] Work Phone: Sodium [Moles/Vol] 140 mmol/L 136-145 [facility] Work Phone: WBC (Bld) [#/Vol] 8.6 10*3/uL 4.4-11.0 [facility] Work Phone: [phone] Bilirubin Test strip Ql (U)o n 06-17-2022 Bilirubin Ql (U) Negative Negative [facility] Work Phone: Blood erythrocytes count (nu mber/volume)on 06-17-2022 RBC (Bld) [#/Vol] 4.46 10*6/uL 4.6-6.2 [facility] Work Phone: Blood hemoglobin measurement (mass/volume)on 06-17-2022 Hemoglobin (Bld) [Mass/Vol] 13.4 g/dL 13.0-16.5 [facility] Work Phone: Blood lymphocytes/100 leukoc yteson 06-17-2022 Lymphocytes/100 WBC (Bld) 23.5 % 19-41 [facility] Work Phone: [phone] Blood monocytes/100 leukocyt eson 06-17-2022 Monocytes/100 WBC (Bld) 10.0 % 0-10 [facility] Work Phone: [phone] Blood platelet mean volumeon 06-17-2022 Platelet mean volume (Bld) [Entitic vol] 9.6 fL 6.2-12.0 [facility] Work Phone: [phone] Determination of erythrocyte mean corpuscular volume (MCV)on 06-17-2022 MCV (RBC) [Entitic vol] 91.3 fL 80-94 [facility] Work Phone: [phone] Hematocrit Auto (Bld) [Volum e fraction]on 06-17-2022 Hematocrit (Bld) [Volume fraction] 40.7 % 40-54 [facility] Work Phone: Ketones Test strip Ql (U)on 06-17-2022 Ketones Ql (U) Negative Negative [facility] Work Phone: Laboratory - Chemistry and C hemistry - challengeon 06-17-2022 CO2 [Moles/Vol] 25.0 mmol/L 21.0-32.0 [facility] Work Phone: [phone] Urea nitrogen/Creatinine [Mass ratio] 12.6 mg/mg 10-20 [facility] Work Phone: Laboratory - Hematology and Cell countson 06-17-2022 Erythrocyte distribution width (RBC) [Entitic vol] 45.5 fL 35.1-43.9 [facility] Work Phone: [phone] Erythrocyte distribution width (RBC) [Ratio] 13.4 % 11.6-14.6 [facility] Work Phone: [phone] Immature granulocytes/100 WBC (Bld) 1.200 % 0.0-0.9 [facility] Work Phone: Comment on above: IG% - Immature Granu locytes (promyelocytes, myelocytes and metamyelocytes) > 1% indicates that a LEFT SHIFT is Present. MCH (RBC) [Entitic mass] 30.0 pg 27.0-32.0 [facility] Work Phone: Nucleated RBC/100 WBC (Bld) [Ratio] 0 % 0-5 [facility] Work Phone: MCHC Auto (RBC) [Mass/Vol]on 06-17-2022 MCHC (RBC) [Mass/Vol] 32.9 g/dL 32-36 [facility] Work Phone: Mucus LM Ql (Urine sed)on Mucus Ql (Urine sed) 0 SEEN /hpf [facility] Work Phone: Nitrite Test strip Ql (U)on 06-17-2022 Nitrite Ql (U) Negative Negative [facility] Work Phone: No Panel Informationon 06-17 Estimated GFR (MDRD) Amer 58 mL/min >60 [facility] Work Phone: Comment on above: GFR Calc Estimated GFR (MDRD) Non-Af Amer 48 mL/min >60 [facility] Work Phone: Comment on above: Non- GFR Calc Platelets bldon 06-17-2022 Platelets (Bld) [#/Vol] 178 10*3/uL 150-450 [facility] Work Phone: Protein Test strip Ql (U)on 06-17-2022 Protein Ql (U) 15 mg/dl Negative [facility] Work Phone: Serum or plasma albumin you urement (mass/volume)on 06-17-2022 Albumin [Mass/Vol] 2.8 g/dL 3.2-5.0 [facility] Work Phone: Serum or plasma calcium you urement (mass/volume)on 06-17-2022 Calcium [Mass/Vol] 8.6 mg/dL 8.5-10.1 [facility] Work Phone: Serum or plasma creatinine m easurement (mass/volume)on 06-17-2022 Creatinine [Mass/Vol] 1.59 mg/dL 0.70-1.30 [facility] Work Phone: Comment on above: The validity of the calculated GFR & GFRAA in patients over 70 years has not been determined. Clinical correlation is essential. Serum or plasma urea nitroge n measurement (mass/volume)on 06-17-2022 Urea nitrogen [Mass/Vol] 20 mg/dL 7-18 [facility] Work Phone: Squamous epithelial cells de tection in urine sediment by light microscopyon 06-17-2022 Epithelial cells.squamous LM Ql (Urine sed) 0-5 SEEN /hpf 0-5 [facility] Work Phone: Urine blood detectionon RBC Ql (U) Negative Negative [facility] Work Phone: RBC Ql (U) 0 SEEN /hpf 0-5 [facility] Work Phone: Urine clarityon 06-17-2022 Clarity (U) Clear Clear [facility] Work Phone: Urine color determinationon 06-17-2022 Color (U) Yellow Yellow [facility] Work Phone: Urine creatinine measurement (mass/volume)on 06-17-2022 Creatinine (U) [Mass/Vol] 118.00 mg/dL NO RANGE EST. [facility] Work Phone: Urine glucose detectionon Glucose Ql (U) Normal mg/dl Normal [facility] Work Phone: Urine leukocyte esterase det ection by dipstickon 06-17-2022 Leukocyte esterase Test strip Ql (U) 100 /ul Negative [facility] Work Phone: Urine pHon 06-17-2022 pH (U) 6.0 [pH] 5.0 - 8.0 [facility] Work Phone: Urine protein measurement (m ass/volume)on 06-17-2022 Protein (U) [Mass/Vol] 22.0 mg/dL 0.0-11.8 [facility] Work Phone: Urine protein/creatinine mas s ratioon 06-17-2022 Protein/Creatinine (U) [Mass ratio] 186 mg/g CRE 0-200 [facility] Work Phone: [phone] Urine sediment bacteria coun t by microscopy (number/high power field)on 06-17-2022 Bacteria LM.HPF (Urine sed) [#/Area] 0 /[HPF] None Seen [facility] Work Phone: [phone] Urine specific gravity measu rementon 06-17-2022 Specific gravity (U) [Rel density] 1.015 1.002-1.03 0 [facility] Work Phone: [phone] Urobilinogen Auto test strip Ql (U)on 06-17-2022 Urobilinogen Ql (U) Normal mg/dl Normal [facility] Work Phone: No Panel Informationon 05-27 [place] Level 0.40 mmol/L 0.60-1.20 [facility] Work Phone: Serum or plasma uric acid me asurement (mass/volume)on 05-27-2022 Urate [Mass/Vol] 6.1 mg/dL 3.5-7.2 [facility] Work Phone: Comment on above: The drugs N-Acetylcy steine and Metamizole may falsely depress this assay. Absolute lymphocyte counton 05-20-2022 Lymphocytes Auto (Unsp spec) [#/Vol] 2.07 10*3/uL 0.83-4.51 [facility] Work Phone: Basophil percentageon 2021 Basophil percentage 3.2 mg/dL 2.5-4.9 [facility] Work Phone: Basophils/100 WBC (Bld) 0.7 % 0-1 [facility] Work Phone: [phone] Chloride [Moles/Vol] 108 mmol/L 98-107 [facility] Work Phone: [phone] Eosinophils/100 WBC (Bld) 2.5 % 0-5 [facility] Work Phone: [phone] Glucose [Mass/Vol] 149 mg/dL 74-106 [facility] Work Phone: [phone] Comment on above: Fasting Glucose resu lt greater than or equal to 126 mg/dL suggests DIABETES MELLITUS per A.D.A. criteria. Neutrophils (Bld) [#/Vol] 6.4 10*3/uL 2.0-7.7 [facility] Work Phone: [phone] Neutrophils/100 WBC (Bld) 65.6 % 47-70 [facility] Work [phone] Potassium [Moles/Vol] 3.9 mmol/L 3.5-5.1 [facility] Work Phone: [phone] Sodium [Moles/Vol] 140 mmol/L 136-145 [facility] Work Phone: [phone] WBC (Bld) [#/Vol] 9.7 10*3/uL 4.4-11.0 [facility] Work Phone: [phone] Basophil percentage 0-5 SEEN /hpf 0-5 [facility] Work Phone: [phone] Bilirubin Test strip Ql (U)o n 05-20-2022 Bilirubin Ql (U) Negative Negative [facility] Work Phone: [phone] Blood erythrocytes count (nu mber/volume)on 05-20-2022 RBC (Bld) [#/Vol] 4.36 10*6/uL 4.6-6.2 [facility] Work Phone: [phone] Blood hemoglobin measurement (mass/volume)on 05-20-2022 Hemoglobin (Bld) [Mass/Vol] 12.9 g/dL 13.0-16.5 [facility] Work Phone: Blood lymphocytes/100 leukoc yteson 05-20-2022 Lymphocytes/100 WBC (Bld) 21.4 % 19-41 [facility] Work Phone: [phone] Blood monocytes/100 leukocyt eson 05-20-2022 Monocytes/100 WBC (Bld) 9.3 % 0-10 [facility] Work Phone: Blood platelet mean volumeon 05-20-2022 Platelet mean volume (Bld) [Entitic vol] 9.6 fL 6.2-12.0 [facility] Work Phone: Determination of erythrocyte mean corpuscular volume (MCV)on 05-20-2022 MCV (RBC) [Entitic vol] 91.5 fL 80-94 [facility] Work Phone: [phone] Hematocrit Auto (Bld) [Volum e fraction]on 05-20-2022 Hematocrit (Bld) [Volume fraction] 39.9 % 40-54 [facility] Work Phone: Ketones Test strip Ql (U)on 05-20-2022 Ketones Ql (U) Negative Negative [facility] Work Phone: Laboratory - Chemistry and C hemistry - challengeon 05-20-2022 CO2 [Moles/Vol] 26.0 mmol/L 21.0-32.0 [facility] Work Phone: Urea nitrogen/Creatinine [Mass ratio] 9.9 mg/mg 10-20 [facility] Work Phone: Laboratory - Hematology and Cell countson 05-20-2022 Erythrocyte distribution width (RBC) [Entitic vol] 45.7 fL 35.1-43.9 [facility] Work Phone: Erythrocyte distribution width (RBC) [Ratio] 13.6 % 11.6-14.6 [facility] Work Phone: Immature granulocytes/100 WBC (Bld) 0.500 % 0.0-0.9 [facility] Work Phone: Comment on above: IG% - Immature Granu locytes (promyelocytes, myelocytes and metamyelocytes) > 1% indicates that a LEFT SHIFT is Present. MCH (RBC) [Entitic mass] 29.6 pg 27.0-32.0 [facility] Work Phone: [phone] Nucleated RBC/100 WBC (Bld) [Ratio] 0 % 0-5 [facility] Work Phone: MCHC Auto (RBC) [Mass/Vol]on 05-20-2022 MCHC (RBC) [Mass/Vol] 32.3 g/dL 32-36 [facility] Work Phone: Mucus LM Ql (Urine sed)on Mucus Ql (Urine sed) 0 SEEN /hpf [facility] Work Phone: Nitrite Test strip Ql (U)on 05-20-2022 Nitrite Ql (U) Negative Negative [facility] Work Phone: No Panel Informationon 05-20 Estimated GFR (MDRD) Amer 53 mL/min >60 [facility] Work Phone: Comment on above: GFR Calc Estimated GFR (MDRD) Non-Af Amer 44 mL/min >60 [facility] Work Phone: Comment on above: Non- GFR Calc Platelets bldon 05-20-2022 Platelets (Bld) [#/Vol] 197 10*3/uL 150-450 [facility] Work Phone: Protein Test strip Ql (U)on 05-20-2022 Protein Ql (U) Negative Negative [facility] Work Phone: Serum or plasma albumin you urement (mass/volume)on 05-20-2022 Albumin [Mass/Vol] 2.7 g/dL 3.2-5.0 [facility] Work Phone: Serum or plasma calcium you urement (mass/volume)on 05-20-2022 Calcium [Mass/Vol] 9.0 mg/dL 8.5-10.1 [facility] Work Phone: Serum or plasma creatinine m easurement (mass/volume)on 05-20-2022 Creatinine [Mass/Vol] 1.71 mg/dL 0.70-1.30 [facility] Work Phone: Comment on above: The validity of the calculated GFR & GFRAA in patients over 70 years has not been determined. Clinical correlation is essential. Serum or plasma urea nitroge n measurement (mass/volume)on 05-20-2022 Urea nitrogen [Mass/Vol] 17 mg/dL 7-18 [facility] Work Phone: Squamous epithelial cells de tection in urine sediment by light microscopyon 05-20-2022 Epithelial cells.squamous LM Ql (Urine sed) 0-5 SEEN /hpf 0-5 [facility] Work Phone: [phone] Urine blood detectionon RBC Ql (U) Negative Negative [facility] Work Phone: [phone] RBC Ql (U) 0 SEEN /hpf 0-5 [facility] Work Phone: Urine clarityon 05-20-2022 Clarity (U) Clear Clear [facility] Work Phone: Urine color determinationon 05-20-2022 Color (U) Yellow Yellow [facility] Work Phone: Urine creatinine measurement (mass/volume)on 05-20-2022 Creatinine (U) [Mass/Vol] 107.00 mg/dL NO RANGE EST. [facility] Work Phone: [phone] Urine glucose detectionon Glucose Ql (U) Normal mg/dl Normal [facility] Work Phone: [phone] Urine leukocyte esterase det ection by dipstickon 05-20-2022 Leukocyte esterase Test strip Ql (U) 25 /ul Negative [facility] Work Phone: [phone] Urine pHon 05-20-2022 pH (U) 6.5 [pH] 5.0 - 8.0 [facility] Work Phone: [phone] Urine protein measurement (m ass/volume)on 05-20-2022 Protein (U) [Mass/Vol] 17.3 mg/dL 0.0-11.8 [facility] Work Phone: Urine protein/creatinine mas s ratioon 05-20-2022 Protein/Creatinine (U) [Mass ratio] 162 mg/g CRE 0-200 [facility] Work Phone: [phone] Urine sediment bacteria coun t by microscopy (number/high power field)on 05-20-2022 Bacteria LM.HPF (Urine sed) [#/Area] 0 /[HPF] None Seen [facility] Work Phone: [phone] Urine specific gravity measu rementon 05-20-2022 Specific gravity (U) [Rel density] 1.010 1.002-1.03 0 [facility] Work Phone: [phone] Urobilinogen Auto test strip Ql (U)on 05-20-2022 Urobilinogen Ql (U) Normal mg/dl Normal [facility] Work Phone: No Panel Informationon 05-05 [facility] Absolute lymphocyte counton 04-27-2022 Lymphocytes Auto (Unsp spec) [#/Vol] 2.36 10*3/uL 0.83-4.51 [facility] Work Phone: [phone] Basophil percentageon 2021 Basophil percentage 4.6 mg/dL 2.5-4.9 [facility] Work Phone: Basophils/100 WBC (Bld) 0.3 % 0-1 [facility] Work Phone: Chloride [Moles/Vol] 104 mmol/L 98-[address] [facility] Work Phone: Eosinophils/100 WBC (Bld) 0.1 % 0-5 [facility] Work Phone: [phone] Glucose [Mass/Vol] 190 mg/dL 74-106 [facility] Work Phone: Comment on above: Fasting Glucose resu lt greater than or equal to 126 mg/dL suggests DIABETES MELLITUS per A.D.A. criteria. Neutrophils (Bld) [#/Vol] 10.5 10*3/uL 2.0-7.7 [facility] Work Phone: Neutrophils/100 WBC (Bld) 72.0 % 47-70 [facility] Work Phone: Potassium [Moles/Vol] 3.8 mmol/L 3.5-5.1 [facility] Work Phone: Sodium [Moles/Vol] 140 mmol/L 136-145 [facility] Work Phone: WBC (Bld) [#/Vol] 14.5 10*3/uL 4.4-11.0 [facility] Work Phone: Blood erythrocytes count (nu mber/volume)on 04-27-2022 RBC (Bld) [#/Vol] 4.56 10*6/uL 4.6-6.2 [facility] Work Phone: Blood hemoglobin measurement (mass/volume)on 04-27-2022 Hemoglobin (Bld) [Mass/Vol] 13.4 g/dL 13.0-16.5 [facility] Work Phone: Blood lymphocytes/100 leukoc yteson 04-27-2022 Lymphocytes/100 WBC (Bld) 16.3 % 19-41 [facility] Work Phone: Blood monocytes/100 leukocyt eson 04-27-2022 Monocytes/100 WBC (Bld) 7.6 % 0-10 [facility] Work Phone: Blood platelet mean volumeon 04-27-2022 Platelet mean volume (Bld) [Entitic vol] 9.2 fL 6.2-12.0 [facility] Work Phone: [phone] Determination of erythrocyte mean corpuscular volume (MCV)on 04-27-2022 MCV (RBC) [Entitic vol] 91.0 fL 80-94 [facility] Work Phone: Hematocrit Auto (Bld) [Volum e fraction]on 04-27-2022 Hematocrit (Bld) [Volume fraction] 41.5 % 40-54 [facility] Work Phone: [phone] Laboratory - Chemistry and C hemistry - challengeon 04-27-2022 CO2 [Moles/Vol] 28.0 mmol/L 21.0-32.0 [facility] Work Phone: [phone] Urea nitrogen/Creatinine [Mass ratio] 13.4 mg/mg 10-20 [facility] Work Phone: Laboratory - Hematology and Cell countson 04-27-2022 Erythrocyte distribution width (RBC) [Entitic vol] 45.7 fL 35.1-43.9 [facility] Work Phone: Erythrocyte distribution width (RBC) [Ratio] 13.7 % 11.6-14.6 [facility] Work Phone: Immature granulocytes/100 WBC (Bld) 3.700 % 0.0-0.9 [facility] Work Phone: Comment on above: IG% - Immature Granu locytes (promyelocytes, myelocytes and metamyelocytes) > 1% indicates that a LEFT SHIFT is Present. MCH (RBC) [Entitic mass] 29.4 pg 27.0-32.0 [facility] Work Phone: Nucleated RBC/100 WBC (Bld) [Ratio] 0.1 % 0-5 [facility] Work Phone: MCHC Auto (RBC) [Mass/Vol]on 04-27-2022 MCHC (RBC) [Mass/Vol] 32.3 g/dL 32-36 [facility] Work Phone: No Panel Informationon 04-27 Estimated GFR (MDRD) Amer 44 mL/min >60 [facility] Work Phone: Comment on above: GFR Calc Estimated GFR (MDRD) Non-Af Amer 36 mL/min >60 [facility] Work Phone: Comment on above: Non- GFR Calc [place] Level 0.50 mmol/L 0.60-1.20 [facility] Work Phone: Platelets bldon 04-27-2022 Platelets (Bld) [#/Vol] 243 10*3/uL 150-450 [facility] Work Phone: Serum or plasma albumin you urement (mass/volume)on 04-27-2022 Albumin [Mass/Vol] 2.9 g/dL 3.2-5.0 [facility] Work Phone: Serum or plasma calcium you urement (mass/volume)on 04-27-2022 Calcium [Mass/Vol] 9.3 mg/dL 8.5-10.1 [facility] Work Phone: Serum or plasma creatinine m easurement (mass/volume)on 04-27-2022 Creatinine [Mass/Vol] 2.02 mg/dL 0.70-1.30 [facility] Work Phone: Comment on above: The validity of the calculated GFR & GFRAA in patients over 70 years has not been determined. Clinical correlation is essential. Serum or plasma urea nitroge n measurement (mass/volume)on 04-27-2022 Urea nitrogen [Mass/Vol] 27 mg/dL 7-18 [facility] Work Phone: Serum or plasma uric acid me asurement (mass/volume)on 04-27-2022 Urate [Mass/Vol] 6.5 mg/dL 3.5-7.2 [facility] Work Phone: Comment on above: The drugs N-Acetylcy steine and Metamizole may falsely depress this assay. Urine creatinine measurement (mass/volume)on 04-27-2022 Creatinine (U) [Mass/Vol] 69.70 mg/dL NO RANGE EST. [facility] Work Phone: Urine protein measurement (m ass/volume)on 04-27-2022 Protein (U) [Mass/Vol] 10.2 mg/dL 0.0-11.8 [facility] Work Phone: Urine protein/creatinine mas s ratioon 04-27-2022 Protein/Creatinine (U) [Mass ratio] 146 mg/g CRE 0-200 [facility] Work Phone: Basophil percentageon 2021 Basophil percentage 4.2 mg/dL 2.5-4.9 [facility] Work Phone: Chloride [Moles/Vol] 107 mmol/L 98-[address] [facility] [address] [facility] Work Phone: Glucose [Mass/Vol] 129 mg/dL 74-106 [facility] [facility] Work Phone: Comment on above: Fasting Glucose resu lt greater than or equal to 126 mg/dL suggests DIABETES MELLITUS per A.D.A. criteria. Potassium [Moles/Vol] 3.8 mmol/L 3.5-5.1 [facility] Work Phone: Sodium [Moles/Vol] 140 mmol/L 136-145 [facility] Work Phone: Basophil percentage 25-50 SEEN /hpf 0-5 [facility] Work Phone: Bilirubin Test strip Ql (U)o n 04-22-2022 Bilirubin Ql (U) Negative Negative [facility] Work Phone: Culture, urineon 04-22-2022 Bacteria identified Cx Nom (U) Positive [facility] Work Phone: Ketones Test strip Ql (U)on 04-22-2022 Ketones Ql (U) Negative Negative [facility] Work Phone: Laboratory - Chemistry and C hemistry - challengeon 04-22-2022 CO2 [Moles/Vol] 27.0 mmol/L 21.0-32.0 [facility] Work Phone: Urea nitrogen/Creatinine [Mass ratio] 8.2 mg/mg 10-20 [facility] Work Phone: Mucus LM Ql (Urine sed)on Mucus Ql (Urine sed) 0 SEEN /hpf [facility] Work Phone: Nitrite Test strip Ql (U)on 04-22-2022 Nitrite Ql (U) Negative Negative [facility] Work Phone: No Panel Informationon 04-22 Estimated GFR (MDRD) Amer 53 mL/min >60 [facility] Work Phone: Comment on above: GFR Calc Estimated GFR (MDRD) Non-Af Amer 44 mL/min >60 [facility] Work Phone: Comment on above: Non- GFR Calc Protein Test strip Ql (U)on 04-22-2022 Protein Ql (U) 15 mg/dl Negative [facility] Work Phone: Serum or plasma albumin you urement (mass/volume)on 04-22-2022 Albumin [Mass/Vol] 2.6 g/dL 3.2-5.0 [facility] Work Phone: Serum or plasma calcium you urement (mass/volume)on 04-22-2022 Calcium [Mass/Vol] 9.1 mg/dL 8.5-10.1 [facility] Work Phone: Serum or plasma creatinine m easurement (mass/volume)on 04-22-2022 Creatinine [Mass/Vol] 1.71 mg/dL 0.70-1.30 [facility] Work Phone: Comment on above: The validity of the calculated GFR & GFRAA in patients over 70 years has not been determined. Clinical correlation is essential. Serum or plasma urea nitroge n measurement (mass/volume)on 04-22-2022 Urea nitrogen [Mass/Vol] 14 mg/dL 7-18 [facility] Work Phone: Squamous epithelial cells de tection in urine sediment by light microscopyon 04-22-2022 Epithelial cells.squamous LM Ql (Urine sed) 0-5 SEEN /hpf 0-5 [facility] Work Phone: Urine blood detectionon RBC Ql (U) 10 /ul Negative [facility] Work Phone: RBC Ql (U) 0-5 SEEN /hpf 0-5 [facility] Work Phone: Urine clarityon 04-22-2022 Clarity (U) Clear Clear [facility] Work Phone: Urine color determinationon 04-22-2022 Color (U) Yellow Yellow [facility] Work Phone: Urine creatinine measurement (mass/volume)on 04-22-2022 Creatinine (U) [Mass/Vol] 171.00 mg/dL NO RANGE EST. [facility] Work Phone: Urine glucose detectionon Glucose Ql (U) Normal mg/dl Normal [facility] Work Phone: Urine leukocyte esterase det ection by dipstickon 04-22-2022 Leukocyte esterase Test strip Ql (U) 500 /ul Negative [facility] Work Phone: Urine pHon 04-22-2022 pH (U) 6.0 [pH] 5.0 - 8.0 [facility] Work Phone: Urine protein measurement (m ass/volume)on 04-22-2022 Protein (U) [Mass/Vol] 30.4 mg/dL 0.0-11.8 [facility] Work Phone: Urine protein/creatinine mas s ratioon 04-22-2022 Protein/Creatinine (U) [Mass ratio] 178 mg/g CRE 0-200 [facility] Work Phone: Urine sediment bacteria coun t by microscopy (number/high power field)on 04-22-2022 Bacteria LM.HPF (Urine sed) [#/Area] 0 /[HPF] None Seen [facility] Work Phone: Urine specific gravity measu rementon 04-22-2022 Specific gravity (U) [Rel density] 1.015 1.002-1.03 0 [facility] Work Phone: Urobilinogen Auto test strip Ql (U)on 04-22-2022 Urobilinogen Ql (U) Normal mg/dl Normal [facility] Work Phone: Absolute lymphocyte counton 04-21-2022 Lymphocytes Auto (Unsp spec) [#/Vol] 2.19 10*3/uL 0.83-4.51 [facility] Work Phone: Basophil percentageon 2021 Basophils/100 WBC (Bld) 0.6 % 0-1 [facility] Work Phone: Eosinophils/100 WBC (Bld) 2.4 % 0-5 [facility] Work Phone: Neutrophils (Bld) [#/Vol] 5.3 10*3/uL 2.0-7.7 [facility] Work Phone: Neutrophils/100 WBC (Bld) 60.5 % 47-70 [facility] Work Phone: WBC (Bld) [#/Vol] 8.8 10*3/uL 4.4-11.0 [facility] Work Phone: Blood erythrocytes count (nu mber/volume)on 04-21-2022 RBC (Bld) [#/Vol] 4.29 10*6/uL 4.6-6.2 [facility] Work Phone: Blood hemoglobin measurement (mass/volume)on 04-21-2022 Hemoglobin (Bld) [Mass/Vol] 12.9 g/dL 13.0-16.5 [facility] Work Phone: Blood lymphocytes/100 leukoc yteson 04-21-2022 Lymphocytes/100 WBC (Bld) 24.9 % 19-41 [facility] Work Phone: Blood monocytes/100 leukocyt eson 04-21-2022 Monocytes/100 WBC (Bld) 11.4 % 0-10 [facility] Work Phone: Blood platelet mean volumeon 04-21-2022 Platelet mean volume (Bld) [Entitic vol] 9.5 fL 6.2-12.0 [facility] Work Phone: [phone] Determination of erythrocyte mean corpuscular volume (MCV)on 04-21-2022 MCV (RBC) [Entitic vol] 92.1 fL 80-94 [facility] Work Phone: Hematocrit Auto (Bld) [Volum e fraction]on 04-21-2022 Hematocrit (Bld) [Volume fraction] 39.5 % 40-54 [facility] Work Phone: Laboratory - Hematology and Cell countson 04-21-2022 Erythrocyte distribution width (RBC) [Entitic vol] 45.9 fL 35.1-43.9 [facility] Work Phone: Erythrocyte distribution width (RBC) [Ratio] 13.5 % 11.6-14.6 [facility] Work Phone: [phone] Immature granulocytes/100 WBC (Bld) 0.200 % 0.0-0.9 [facility] Work Phone: Comment on above: IG% - Immature Granu locytes (promyelocytes, myelocytes and metamyelocytes) > 1% indicates that a LEFT SHIFT is Present. MCH (RBC) [Entitic mass] 30.1 pg 27.0-32.0 [facility] Work Phone: [phone] Nucleated RBC/100 WBC (Bld) [Ratio] 0 % 0-5 [facility] Work Phone: [phone] MCHC Auto (RBC) [Mass/Vol]on 04-21-2022 MCHC (RBC) [Mass/Vol] 32.7 g/dL 32-36 [facility] Work Phone: [phone] Platelets bldon 04-21-2022 Platelets (Bld) [#/Vol] 199 10*3/uL 150-450 [facility] Work Phone: Serum or plasma uric acid me asurement (mass/volume)on 04-21-2022 Urate [Mass/Vol] 6.2 mg/dL 3.5-7.2 [facility] Work Phone: Comment on above: The drugs N-Acetylcy steine and Metamizole may falsely depress this assay. Laboratory - Microbiology an d Antimicrobial susceptibilityon 04-06-2022 SARS-CoV-2 (COVID-19) RNA AMANDO+probe Ql (Unsp spec) Detected Not Detect [facility] Work Phone: Comment on above: Normal Reference [...] Auto (Unsp spec) [#/Vol] 1.96 10*3/uL 0.83-4.51 [facility] Work Phone: Basophil percentageon 2021 Basophils/100 WBC (Bld) 0.6 % 0-1 [facility] Work Phone: Chloride [Moles/Vol] 103 mmol/L 98-[address] [facility] Work Phone: Eosinophils/100 WBC (Bld) 0.6 % 0-5 [facility] Work Phone: [phone] Glucose [Mass/Vol] 133 mg/dL 74-106 [facility] Work Phone: Comment on above: Fasting Glucose resu lt greater than or equal to 126 mg/dL suggests DIABETES MELLITUS per A.D.A. criteria. Neutrophils (Bld) [#/Vol] 7.3 10*3/uL 2.0-7.7 [facility] Work Phone: Neutrophils/100 WBC (Bld) 64.6 % 47-70 [facility] Work Phone: Potassium [Moles/Vol] 3.5 mmol/L 3.5-5.1 [facility] Work Phone: Sodium [Moles/Vol] 138 mmol/L 136-145 [facility] Work Phone: WBC (Bld) [#/Vol] 11.3 10*3/uL 4.4-11.0 [facility] Work Phone: Blood erythrocytes count (nu mber/volume)on 04-02-2022 RBC (Bld) [#/Vol] 4.81 10*6/uL 4.6-6.2 [facility] Work Phone: [phone] Blood hemoglobin measurement (mass/volume)on 04-02-2022 Hemoglobin (Bld) [Mass/Vol] 14.4 g/dL 13.0-16.5 [facility] Work Phone: Blood lymphocytes/100 leukoc yteson 04-02-2022 Lymphocytes/100 WBC (Bld) 17.3 % 19-41 [facility] Work Phone: Blood monocytes/100 leukocyt eson 04-02-2022 Monocytes/100 WBC (Bld) 15.7 % 0-10 [facility] Work Phone: Blood platelet mean volumeon 04-02-2022 Platelet mean volume (Bld) [Entitic vol] 10.0 fL 6.2-12.0 [facility] Work Phone: [phone] Determination of erythrocyte mean corpuscular volume (MCV)on 04-02-2022 MCV (RBC) [Entitic vol] 91.7 fL 80-94 [facility] Work Phone: Hematocrit Auto (Bld) [Volum e fraction]on 04-02-2022 Hematocrit (Bld) [Volume fraction] 44.1 % 40-54 [facility] Work Phone: [phone] Laboratory - Chemistry and C hemistry - challengeon 04-02-2022 CO2 [Moles/Vol] 26.0 mmol/L 21.0-32.0 [facility] Work Phone: [phone] Urea nitrogen/Creatinine [Mass ratio] 14.1 mg/mg -20 [facility] Work Phone: Laboratory - Hematology and Cell countson 04-02-2022 Erythrocyte distribution width (RBC) [Entitic vol] 47.8 fL 35.1-43.9 [facility] Work Phone: [phone] Erythrocyte distribution width (RBC) [Ratio] 14.0 % 11.6-14.6 [facility] Work Phone: [phone] Immature granulocytes/100 WBC (Bld) 1.200 % 0.0-0.9 [facility] Work Phone: Comment on above: IG% - Immature Granu locytes (promyelocytes, myelocytes and metamyelocytes) > 1% indicates that a LEFT SHIFT is Present. MCH (RBC) [Entitic mass] 29.9 pg 27.0-32.0 [facility] Work Phone: Nucleated RBC/100 WBC (Bld) [Ratio] 0 % 0-5 [facility] Work Phone: MCHC Auto (RBC) [Mass/Vol]on 04-02-2022 MCHC (RBC) [Mass/Vol] 32.7 g/dL 32-36 [facility] Work Phone: No Panel Informationon 04-02 Estimated GFR (MDRD) Amer 51 mL/min >60 [facility] Work Phone: Comment on above: GFR Calc Estimated GFR (MDRD) Non-Af Amer 42 mL/min >60 [facility] Work Phone: Comment on above: Non- GFR Calc Platelets bldon 04-02-2022 Platelets (Bld) [#/Vol] 160 10*3/uL 150-450 [facility] Work Phone: Review by pathologiston 03-15 Pathologist review Crispin (Unsp spec) [Interp] Reviewed [facility] Work Phone: Comment on above: Previous reported re sult: Bonnie kincaid Edited by: ETHEL on 04/06/22:0913Leukocytosis. Tuan Servin M.D. 04/06/22 AMENDED REPORT 04/06/22 0913 PATH REV previously reported as: Bonnie kincaid Serum or plasma calcium you urement (mass/volume)on 04-02-2022 Calcium [Mass/Vol] 9.0 mg/dL 8.5-10.1 [facility] Work Phone: Serum or plasma creatinine m easurement (mass/volume)on 04-02-2022 Creatinine [Mass/Vol] 1.77 mg/dL 0.70-1.30 [facility] Work Phone: [phone] Comment on above: The validity of the calculated GFR & GFRAA in patients over 70 years has not been determined. Clinical correlation is essential. Serum or plasma urea nitroge n measurement (mass/volume)on 04-02-2022 Urea nitrogen [Mass/Vol] 25 mg/dL 7-18 [facility] Work Phone: Thin prep Papanicolaou smear with manual screeningon 04-02-2022 Thin prep Papanicolaou smear with manual screening 9 5-15 [facility] Work Phone: Absolute lymphocyte counton 03-25-2022 Lymphocytes Auto (Unsp spec) [#/Vol] 2.80 10*3/uL 0.83-4.51 [facility] Work Phone: [phone] Basophil percentageon 2021 Basophil percentage 4.0 mg/dL 2.5-4.9 [facility] Work Phone: Basophils/100 WBC (Bld) 0.6 % 0-1 [facility] Work Phone: Chloride [Moles/Vol] 106 mmol/L 98-[address] [facility] Work Phone: Eosinophils/100 WBC (Bld) 1.7 % 0-5 [facility] Work Phone: [phone] Glucose [Mass/Vol] 164 mg/dL 74-106 [facility] Work Phone: [phone] Comment on above: Fasting Glucose resu lt greater than or equal to 126 mg/dL suggests DIABETES MELLITUS per A.D.A. criteria. Neutrophils (Bld) [#/Vol] 5.6 10*3/uL 2.0-7.7 [facility] Work Phone: Neutrophils/100 WBC (Bld) 56.9 % 47-70 [facility] Work Phone: [phone] Potassium [Moles/Vol] 3.8 mmol/L 3.5-5.1 [facility] Work Phone: Sodium [Moles/Vol] 139 mmol/L 136-145 [facility] Work Phone: [phone] WBC (Bld) [#/Vol] 9.8 10*3/uL 4.4-11.0 [facility] Work Phone: [phone] Basophil percentage 0-5 SEEN /hpf 0-5 [facility] Work Phone: [phone] Bilirubin Test strip Ql (U)o n 03-25-2022 Bilirubin Ql (U) Negative Negative [facility] Work Phone: Blood erythrocytes count (nu mber/volume)on 03-25-2022 RBC (Bld) [#/Vol] 4.77 10*6/uL 4.6-6.2 [facility] Work Phone: [phone] Blood hemoglobin measurement (mass/volume)on 03-25-2022 Hemoglobin (Bld) [Mass/Vol] 14.1 g/dL 13.0-16.5 [facility] Work Phone: Blood lymphocytes/100 leukoc yteson 03-25-2022 Lymphocytes/100 WBC (Bld) 28.7 % 19-41 [facility] Work Phone: Blood monocytes/100 leukocyt eson 03-25-2022 Monocytes/100 WBC (Bld) 9.2 % 0-10 [facility] Work Phone: Blood platelet mean volumeon 03-25-2022 Platelet mean volume (Bld) [Entitic vol] 9.3 fL 6.2-12.0 [facility] Work Phone: [phone] Determination of erythrocyte mean corpuscular volume (MCV)on 03-25-2022 MCV (RBC) [Entitic vol] 91.4 fL 80-94 [facility] Work Phone: [phone] Hematocrit Auto (Bld) [Volum e fraction]on 03-25-2022 Hematocrit (Bld) [Volume fraction] 43.6 % 40-54 [facility] Work Phone: [phone] Ketones Test strip Ql (U)on 03-25-2022 Ketones Ql (U) Negative Negative [facility] Work Phone: Laboratory - Chemistry and C hemistry - challengeon 03-25-2022 CO2 [Moles/Vol] 26.0 mmol/L 21.0-32.0 [facility] Work Phone: Urea nitrogen/Creatinine [Mass ratio] 15.4 mg/mg 10-20 [facility] Work Phone: Laboratory - Hematology and Cell countson 03-25-2022 Erythrocyte distribution width (RBC) [Entitic vol] 45.9 fL 35.1-43.9 [facility] Work Phone: Erythrocyte distribution width (RBC) [Ratio] 13.6 % 11.6-14.6 [facility] Work Phone: Immature granulocytes/100 WBC (Bld) 2.900 % 0.0-0.9 [facility] Work Phone: Comment on above: IG% - Immature Granu locytes (promyelocytes, myelocytes and metamyelocytes) > 1% indicates that a LEFT SHIFT is Present. MCH (RBC) [Entitic mass] 29.6 pg 27.0-32.0 [facility] Work Phone: Nucleated RBC/100 WBC (Bld) [Ratio] 0 % 0-5 [facility] Work Phone: MCHC Auto (RBC) [Mass/Vol]on 03-25-2022 MCHC (RBC) [Mass/Vol] 32.3 g/dL 32-36 [facility] Work Phone: Mucus LM Ql (Urine sed)on Mucus Ql (Urine sed) 0 SEEN /hpf [facility] Work Phone: Nitrite Test strip Ql (U)on 03-25-2022 Nitrite Ql (U) Negative Negative [facility] Work Phone: No Panel Informationon 03-25 Estimated GFR (MDRD) Amer 52 mL/min >60 [facility] Work Phone: Comment on above: GFR Calc Estimated GFR (MDRD) Non-Af Amer 43 mL/min >60 [facility] Work Phone: Comment on above: Non- GFR Calc Platelets bldon 03-25-2022 Platelets (Bld) [#/Vol] 276 10*3/uL 150-450 [facility] Work Phone: Protein Test strip Ql (U)on 03-25-2022 Protein Ql (U) Negative Negative [facility] Work Phone: Serum or plasma albumin you urement (mass/volume)on 03-25-2022 Albumin [Mass/Vol] 2.9 g/dL 3.2-5.0 [facility] Work Phone: Serum or plasma calcium you urement (mass/volume)on 03-25-2022 Calcium [Mass/Vol] 8.7 mg/dL 8.5-10.1 [facility] Work Phone: Serum or plasma creatinine m easurement (mass/volume)on 03-25-2022 Creatinine [Mass/Vol] 1.75 mg/dL 0.70-1.30 [facility] Work Phone: Comment on above: The validity of the calculated GFR & GFRAA in patients over 70 years has not been determined. Clinical correlation is essential. Serum or plasma urea nitroge n measurement (mass/volume)on 03-25-2022 Urea nitrogen [Mass/Vol] 27 mg/dL 7-18 [facility] Work Phone: Squamous epithelial cells de tection in urine sediment by light microscopyon 03-25-2022 Epithelial cells.squamous LM Ql (Urine sed) 0-5 SEEN /hpf 0-5 [facility] Work Phone: Urine blood detectionon 03-14 RBC Ql (U) Negative Negative [facility] Work Phone: RBC Ql (U) 0 SEEN /hpf 0-5 [facility] Work Phone: Urine clarityon 03-25-2022 Clarity (U) Sl. Cloudy Clear [facility] Work Phone: Urine color determinationon 03-25-2022 Color (U) Yellow Yellow [facility] Work Phone: [phone] Urine creatinine measurement (mass/volume)on 03-25-2022 Creatinine (U) [Mass/Vol] 90.50 mg/dL NO RANGE EST. [facility] Work Phone: Urine glucose detectionon Glucose Ql (U) Normal mg/dl Normal [facility] Work Phone: Urine leukocyte esterase det ection by dipstickon 03-25-2022 Leukocyte esterase Test strip Ql (U) 25 /ul Negative [facility] Work Phone: Urine pHon 03-25-2022 pH (U) 6.0 [pH] 5.0 - 8.0 [facility] Work Phone: [phone] Urine protein measurement (m ass/volume)on 03-25-2022 Protein (U) [Mass/Vol] 15.8 mg/dL 0.0-11.8 [facility] Work Phone: [phone] Urine protein/creatinine mas s ratioon 03-25-2022 Protein/Creatinine (U) [Mass ratio] 175 mg/g CRE 0-200 [facility] Work Phone: [phone] Urine sediment bacteria coun t by microscopy (number/high power field)on 03-25-2022 Bacteria LM.HPF (Urine sed) [#/Area] 0 /[HPF] None Seen [facility] Work Phone: [phone] Urine specific gravity measu rementon 03-25-2022 Specific gravity (U) [Rel density] 1.015 1.002-1.03 0 [facility] Work Phone: [phone] Urobilinogen Auto test strip Ql (U)on 03-25-2022 Urobilinogen Ql (U) Normal mg/dl Normal [facility] Work Phone: [phone] Serum or plasma uric acid me asurement (mass/volume)on 03-19-2022 Urate [Mass/Vol] 8.3 mg/dL 3.5-7.2 [facility] Work Phone: [phone] Comment on above: The drugs N-Acetylcy steine and Metamizole may falsely depress this assay. Absolute lymphocyte counton 02-25-2022 Lymphocytes Auto (Unsp spec) [#/Vol] 2.27 10*3/uL 0.83-4.51 [facility] Work Phone: Basophil percentageon 2021 Basophil percentage 0 SEEN /hpf 0-[address] [facility] Work Phone: Basophil percentage 4.3 mg/dL 2.5-4.9 [facility] Work Phone: Basophils/100 WBC (Bld) 0.3 % 0-1 [facility] Work Phone: Chloride [Moles/Vol] 102 mmol/L 98-[address] [facility] Work Phone: Eosinophils/100 WBC (Bld) 0.2 % 0-5 [facility] Work Phone: [phone] Glucose [Mass/Vol] 107 mg/dL 74-106 [facility] Work Phone: Comment on above: Fasting Glucose resu lt from 100 to 125 mg/dL suggests IMPAIRED HOMEOSTASIS per A.D.A. criteria. Neutrophils (Bld) [#/Vol] 7.8 10*3/uL 2.0-7.7 [facility] Work Phone: Neutrophils/100 WBC (Bld) 67.9 % 47-70 [facility] Work Phone: Potassium [Moles/Vol] 4.1 mmol/L 3.5-5.1 [facility] Work Phone: Comment on above: Moderate Hemolysis, Result may be falsely increased. Sodium [Moles/Vol] 137 mmol/L 136-145 [facility] Work Phone: WBC (Bld) [#/Vol] 11.6 10*3/uL 4.4-11.0 [facility] Work Phone: [phone] Bilirubin Test strip Ql (U)o n 02-25-2022 Bilirubin Ql (U) Negative Negative [facility] Work Phone: Blood erythrocytes count (nu mber/volume)on 02-25-2022 RBC (Bld) [#/Vol] 4.09 10*6/uL 4.6-6.2 [facility] Work Phone: [phone] Blood hemoglobin measurement (mass/volume)on 02-25-2022 Hemoglobin (Bld) [Mass/Vol] 12.0 g/dL 13.0-16.5 [facility] Work Phone: Blood lymphocytes/100 leukoc yteson 02-25-2022 Lymphocytes/100 WBC (Bld) 19.7 % 19-41 [facility] Work Phone: Blood monocytes/100 leukocyt eson 02-25-2022 Monocytes/100 WBC (Bld) 9.0 % 0-10 [facility] Work Phone: Blood platelet adequacy dete ction by light microscopyon 02-25-2022 Platelets LM Ql (Bld) ADEQUATE ADEQ [facility] Work Phone: Blood platelet mean volumeon 02-25-2022 Platelet mean volume (Bld) [Entitic vol] 9.9 fL 6.2-12.0 [facility] Work Phone: Culture, urineon 02-25-2022 Bacteria identified Cx Nom (U) Culture exhibits no growth. [facility] Work Phone: Determination of erythrocyte mean corpuscular volume (MCV)on 02-25-2022 MCV (RBC) [Entitic vol] 90.2 fL 80-94 [facility] Work Phone: Hematocrit Auto (Bld) [Volum e fraction]on 02-25-2022 Hematocrit (Bld) [Volume fraction] 36.9 % 40-54 [facility] Work Phone: Ketones Test strip Ql (U)on 02-25-2022 Ketones Ql (U) Negative Negative [facility] Work Phone: Laboratory - Chemistry and C hemistry - challengeon 02-25-2022 CO2 [Moles/Vol] 26.0 mmol/L 21.0-32.0 [facility] Work Phone: Urea nitrogen/Creatinine [Mass ratio] 18.6 mg/mg 10-20 [facility] Work Phone: Laboratory - Hematology and Cell countson 02-25-2022 Erythrocyte distribution width (RBC) [Entitic vol] 46.8 fL 35.1-43.9 [facility] Work Phone: Erythrocyte distribution width (RBC) [Ratio] 14.1 % 11.6-14.6 [facility] Work Phone: Immature granulocytes/100 WBC (Bld) 2.900 % 0.0-0.9 [facility] Work Phone: Comment on above: IG% - Immature Granu locytes (promyelocytes, myelocytes and metamyelocytes) > 1% indicates that a LEFT SHIFT is Present. MCH (RBC) [Entitic mass] 29.3 pg 27.0-32.0 [facility] Work Phone: Nucleated RBC/100 WBC (Bld) [Ratio] 0 % 0-5 [facility] Work Phone: MCHC Auto (RBC) [Mass/Vol]on 02-25-2022 MCHC (RBC) [Mass/Vol] 32.5 g/dL 32-36 [facility] Work Phone: Mucus LM Ql (Urine sed)on Mucus Ql (Urine sed) 0 SEEN /hpf [facility] Work Phone: Nitrite Test strip Ql (U)on 02-25-2022 Nitrite Ql (U) Negative Negative [facility] Work Phone: No Panel Informationon 02-25 Estimated GFR (MDRD) Amer 43 mL/min >60 [facility] Work Phone: Comment on above: GFR Calc Estimated GFR (MDRD) Non-Af Amer 36 mL/min >60 [facility] Work Phone: Comment on above: Non- GFR Calc [place] Level 0.50 mmol/L 0.60-1.20 [facility] Work Phone: Platelets bldon 02-25-2022 Platelets (Bld) [#/Vol] [facility] Work Phone: Comment on above: Test not performedPl ease note: For this sample, a platelet estimate is provided rather than a platelet count due to platelet clumping. Other parameters associated with this sample are not affected by platelet clumping. If a more accurate platelet count is required, a redraw of the patient will be necessary.Previous reported result: 202 [id number] by: RUPERTO on 02/25/22:1032 AMENDED REPORT 02/25/22 1032 PLT previously reported as: 202 K/mm3 Protein Test strip Ql (U)on 02-25-2022 Protein Ql (U) Negative Negative [facility] Work Phone: Serum or plasma albumin you urement (mass/volume)on 02-25-2022 Albumin [Mass/Vol] 3.2 g/dL 3.2-5.0 [facility] Work Phone: Serum or plasma calcium you urement (mass/volume)on 02-25-2022 Calcium [Mass/Vol] 8.4 mg/dL 8.5-10.1 [facility] Work Phone: Serum or plasma creatinine m easurement (mass/volume)on 02-25-2022 Creatinine [Mass/Vol] 2.04 mg/dL 0.70-1.30 [facility] Work Phone: Comment on above: The validity of the calculated GFR & GFRAA in patients over 70 years has not been determined. Clinical correlation is essential. Serum or plasma urea nitroge n measurement (mass/volume)on 02-25-2022 Urea nitrogen [Mass/Vol] 38 mg/dL 7-18 [facility] Work Phone: Serum or plasma uric acid me asurement (mass/volume)on 02-25-2022 Urate [Mass/Vol] 7.8 mg/dL 3.5-7.2 [facility] Work Phone: [phone] Comment on above: The drugs N-Acetylcy steine and Metamizole may falsely depress this assay. Squamous epithelial cells de tection in urine sediment by light microscopyon 02-25-2022 Epithelial cells.squamous LM Ql (Urine sed) 0 SEEN /hpf 0-5 [facility] Work Phone: [phone] Urine blood detectionon 02-12 RBC Ql (U) Negative Negative [facility] Work Phone: RBC Ql (U) 0 SEEN /hpf 0-5 [facility] Work Phone: Urine clarityon 02-25-2022 Clarity (U) Clear Clear [facility] Work Phone: Urine color determinationon 02-25-2022 Color (U) Yellow Yellow [facility] Work Phone: Urine creatinine measurement (mass/volume)on 02-25-2022 Creatinine (U) [Mass/Vol] 82.80 mg/dL NO RANGE EST. [facility] Work Phone: [phone] Urine glucose detectionon Glucose Ql (U) Normal mg/dl Normal [facility] Work Phone: [phone] Urine leukocyte esterase det ection by dipstickon 02-25-2022 Leukocyte esterase Test strip Ql (U) 25 /ul Negative [facility] Work Phone: Urine pHon 02-25-2022 pH (U) 6.0 [pH] 5.0 - 8.0 [facility] Work Phone: Urine protein measurement (m ass/volume)on 02-25-2022 Protein (U) [Mass/Vol] 13.8 mg/dL 0.0-11.8 [facility] Work Phone: [phone] Urine protein/creatinine mas s ratioon 02-25-2022 Protein/Creatinine (U) [Mass ratio] 167 mg/g CRE 0-200 [facility] Work Phone: [phone] Urine sediment bacteria coun t by microscopy (number/high power field)on 02-25-2022 Bacteria LM.HPF (Urine sed) [#/Area] 0 /[HPF] None Seen [facility] Work Phone: Urine specific gravity measu rementon 02-25-2022 Specific gravity (U) [Rel density] 1.020 1.002-1.03 0 [facility] Work Phone: Urobilinogen Auto test strip Ql (U)on 02-25-2022 Urobilinogen Ql (U) Normal mg/dl Normal [facility] Work Phone: Basophil percentageon 2021 Chloride [Moles/Vol] 110 mmol/L 98-[address] [facility] Work Phone: Glucose [Mass/Vol] 125 mg/dL 74-106 [facility] Work Phone: Comment on above: Fasting Glucose resu lt from 100 to 125 mg/dL suggests IMPAIRED HOMEOSTASIS per A.D.A. criteria. Potassium [Moles/Vol] 4.1 mmol/L 3.5-5.1 [facility] Work Phone: Sodium [Moles/Vol] 139 mmol/L 136-145 [facility] Work Phone: Erythrocyte sedimentation ra meredith 02-18-2022 ESR (Bld) [Velocity] 12 mm/h 0-[address] [facility] Work Phone: Laboratory - Chemistry and C hemistry - challengeon 02-18-2022 CO2 [Moles/Vol] 24.0 mmol/L 21.0-32.0 [facility] Work Phone: Urea nitrogen/Creatinine [Mass ratio] 11.8 mg/mg 10-20 [facility] Work Phone: No Panel Informationon 02-18 Estimated GFR (MDRD) Amer 48 mL/min >60 [facility] Work Phone: Comment on above: GFR Calc Estimated GFR (MDRD) Non-Af Amer 40 mL/min >60 [facility] Work Phone: Comment on above: Non- GFR Calc Serum or plasma calcium you urement (mass/volume)on 02-18-2022 Calcium [Mass/Vol] 8.7 mg/dL 8.5-10.1 [facility] Work Phone: Serum or plasma creatinine m easurement (mass/volume)on 02-18-2022 Creatinine [Mass/Vol] 1.86 mg/dL 0.70-1.30 [facility] Work Phone: Comment on above: The validity of the calculated GFR & GFRAA in patients over 70 years has not been determined. Clinical correlation is essential. Serum or plasma urea nitroge n measurement (mass/volume)on 02-18-2022 Urea nitrogen [Mass/Vol] 22 mg/dL 7-18 [facility] Work Phone: Serum or plasma uric acid me asurement (mass/volume)on 02-18-2022 Urate [Mass/Vol] 7.2 mg/dL 3.5-7.2 [facility] Work Phone: Comment on above: The drugs N-Acetylcy steine and Metamizole may falsely depress this assay. Thin prep Papanicolaou smear with manual screeningon 02-18-2022 Thin prep Papanicolaou smear with manual screening 5 5-15 [facility] Work Phone: Absolute lymphocyte counton 01-28-2022 Lymphocytes Auto (Unsp spec) [#/Vol] 1.90 10*3/uL 0.83-4.51 [facility] Work Phone: Basophil percentageon 2021 Basophil percentage 0 SEEN /hpf 0-[address] [facility] Work Phone: Basophil percentage 2.7 mg/dL 2.5-4.9 [facility] Work Phone: Basophils/100 WBC (Bld) 0.5 % 0-1 [facility] Work Phone: Chloride [Moles/Vol] 110 mmol/L 98-[address] [facility] Work Phone: Eosinophils/100 WBC (Bld) 0.4 % 0-5 [facility] Work Phone: [phone] Glucose [Mass/Vol] 129 mg/dL 74-106 [facility] Work Phone: [phone] Comment on above: Fasting Glucose resu lt greater than or equal to 126 mg/dL suggests DIABETES MELLITUS per A.D.A. criteria. Neutrophils (Bld) [#/Vol] 8.0 10*3/uL 2.0-7.7 [facility] Work Phone: Neutrophils/100 WBC (Bld) 70.6 % 47-70 [facility] Work Phone: Potassium [Moles/Vol] 3.8 mmol/L 3.5-5.1 [facility] Work Phone: [phone] Sodium [Moles/Vol] 141 mmol/L 136-145 [facility] Work Phone: [phone] WBC (Bld) [#/Vol] 11.3 10*3/uL 4.4-11.0 [facility] Work Phone: [phone] Bilirubin Test strip Ql (U)o n 01-28-2022 Bilirubin Ql (U) Negative Negative [facility] Work Phone: [phone] Blood erythrocytes count (nu mber/volume)on 01-28-2022 RBC (Bld) [#/Vol] 4.23 10*6/uL 4.6-6.2 [facility] Work Phone: Blood hemoglobin measurement (mass/volume)on 01-28-2022 Hemoglobin (Bld) [Mass/Vol] 12.6 g/dL 13.0-16.5 [facility] Work Phone: Blood lymphocytes/100 leukoc yteson 01-28-2022 Lymphocytes/100 WBC (Bld) 16.8 % 19-41 [facility] Work Phone: Blood monocytes/100 leukocyt eson 01-28-2022 Monocytes/100 WBC (Bld) 10.0 % 0-10 [facility] Work Phone: Blood platelet mean volumeon 01-28-2022 Platelet mean volume (Bld) [Entitic vol] 9.3 fL 6.2-12.0 [facility] Work Phone: Determination of erythrocyte mean corpuscular volume (MCV)on 01-28-2022 MCV (RBC) [Entitic vol] 91.3 fL 80-94 [facility] Work Phone: Hematocrit Auto (Bld) [Volum e fraction]on 01-28-2022 Hematocrit (Bld) [Volume fraction] 38.6 % 40-54 [facility] Work Phone: [phone] Ketones Test strip Ql (U)on 01-28-2022 Ketones Ql (U) Negative Negative [facility] Work Phone: Laboratory - Chemistry and C hemistry - challengeon 01-28-2022 CO2 [Moles/Vol] 25.0 mmol/L 21.0-32.0 [facility] Work Phone: Urea nitrogen/Creatinine [Mass ratio] 14.7 mg/mg 10-20 [facility] Work Phone: Laboratory - Hematology and Cell countson 01-28-2022 Erythrocyte distribution width (RBC) [Entitic vol] 45.7 fL 35.1-43.9 [facility] Work Phone: Erythrocyte distribution width (RBC) [Ratio] 13.7 % 11.6-14.6 [facility] Work Phone: [phone] Immature granulocytes/100 WBC (Bld) 1.700 % 0.0-0.9 [facility] Work Phone: Comment on above: IG% - Immature Granu locytes (promyelocytes, myelocytes and metamyelocytes) > 1% indicates that a LEFT SHIFT is Present. MCH (RBC) [Entitic mass] 29.8 pg 27.0-32.0 [facility] Work Phone: [phone] Nucleated RBC/100 WBC (Bld) [Ratio] 0 % 0-5 [facility] Work Phone: MCHC Auto (RBC) [Mass/Vol]on 01-28-2022 MCHC (RBC) [Mass/Vol] 32.6 g/dL 32-36 [facility] Work Phone: Mucus LM Ql (Urine sed)on Mucus Ql (Urine sed) 0 SEEN /hpf [facility] Work Phone: Nitrite Test strip Ql (U)on 01-28-2022 Nitrite Ql (U) Negative Negative [facility] Work Phone: No Panel Informationon 01-28 Urine Microalbumin/Creatinine Ratio 77.0 mg/g CRE <30 [facility] Work Phone: Estimated GFR (MDRD) Amer 56 mL/min >60 [facility] Work Phone: Comment on above: GFR Calc Estimated GFR (MDRD) Non-Af Amer 46 mL/min >60 [facility] Work Phone: Comment on above: Non- GFR Calc Platelets bldon 01-28-2022 Platelets (Bld) [#/Vol] 240 10*3/uL 150-450 [facility] Work Phone: Protein Test strip Ql (U)on 01-28-2022 Protein Ql (U) Negative Negative [facility] Work Phone: Serum or plasma albumin oyu urement (mass/volume)on 01-28-2022 Albumin [Mass/Vol] 3.2 g/dL 3.2-5.0 [facility] Work Phone: Serum or plasma calcium you urement (mass/volume)on 01-28-2022 Calcium [Mass/Vol] 8.4 mg/dL 8.5-10.1 [facility] Work Phone: Serum or plasma creatinine m easurement (mass/volume)on 01-28-2022 Creatinine [Mass/Vol] 1.63 mg/dL 0.70-1.30 [facility] Work Phone: Comment on above: The validity of the calculated GFR & GFRAA in patients over 70 years has not been determined. Clinical correlation is essential. Serum or plasma urea nitroge n measurement (mass/volume)on 01-28-2022 Urea nitrogen [Mass/Vol] 24 mg/dL 7-18 [facility] Work Phone: Squamous epithelial cells de tection in urine sediment by light microscopyon 01-28-2022 Epithelial cells.squamous LM Ql (Urine sed) 0-5 SEEN /hpf 0-5 [facility] Work Phone: Thin prep Papanicolaou smear with manual screeningon 01-28-2022 Thin prep Papanicolaou smear with manual screening 28.5 mg/L NO RANGE EST. [facility] Work Phone: Urine blood detectionon 01-12 RBC Ql (U) Negative Negative [facility] Work Phone: RBC Ql (U) 0 SEEN /hpf 0-5 [facility] Work Phone: Urine clarityon 01-28-2022 Clarity (U) Sl. Cloudy Clear [facility] Work Phone: Urine color determinationon 01-28-2022 Color (U) Yellow Yellow [facility] Work Phone: Urine creatinine measurement (mass/volume)on 01-28-2022 Creatinine (U) [Mass/Vol] 37.00 mg/dL NO RANGE EST. [facility] Work Phone: Urine glucose detectionon Glucose Ql (U) Normal mg/dl Normal [facility] Work Phone: Urine leukocyte esterase det ection by dipstickon 01-28-2022 Leukocyte esterase Test strip Ql (U) Negative Negative [facility] Work Phone: Urine pHon 01-28-2022 pH (U) 7.0 [pH] 5.0 - 8.0 [facility] Work Phone: Urine sediment bacteria coun t by microscopy (number/high power field)on 01-28-2022 Bacteria LM.HPF (Urine sed) [#/Area] 0 /[HPF] None Seen [facility] Work Phone: Urine specific gravity measu rementon 01-28-2022 Specific gravity (U) [Rel density] 1.010 1.002-1.03 0 [facility] Work Phone: Urobilinogen Auto test strip Ql (U)on 01-28-2022 Urobilinogen Ql (U) Normal mg/dl Normal [facility] Work Phone: No Panel Informationon 01-25 [place] Level 0.50 mmol/L 0.60-1.20 [facility] Work Phone: Basophil percentageon 2021 Cholesterol [Mass/Vol] 140 mg/dL <200 [facility] Work Phone: Comment on above: <200 mg/dL Desirable 200-240 mg/dL Borderline >240 mg/dL High Risk Triglyceride [Mass/Vol] 247 mg/dL <199 [facility] Work Phone: Comment on above: The drugs N-Acetylcy steine and Metamizole may falsely depress this assay.Serum Triglycerides Reference Interval Normal <150 mg/dL Borderline high 150 - 199 mg/dL High 200 - 499 mg/dL Very High > or = 500 mg/dL No Panel Informationon 01-04 [place] Level 0.50 mmol/L 0.60-1.20 [facility] Work Phone: Serum or plasma cholesterol in HDL measurement (mass/volume)on 01-04-2022 Cholesterol in HDL [Mass/Vol] 34 mg/dL >40 [facility] Work Phone: Comment on above: The drugs N-Acetylcy steine and Metamizole may falsely depress this assay. Reference Range HDL <40 mg/dL Low HDL Cholesterol HDL >or= 60 mg/dL High HDL Cholesterol Serum or plasma cholesterol in VLDL measurement (mass/volume)on 01-04-2022 Cholesterol in VLDL [Mass/Vol] 49 mg/dL 5-40 [facility] Work Phone: Serum or plasma low density lipoprotein (LDL) cholesterol measurement (mass/volume)on 01-04-2022 Cholesterol in LDL [Mass/Vol] 57 mg/dL 0-130 [facility] Work Phone: [phone] No Panel Informationon 12-07 [place] Level 0.50 mmol/L 0.60-1.20 [facility] Work Phone: [phone] Absolute lymphocyte counton 12-03-2021 Lymphocytes Auto (Unsp spec) [#/Vol] 2.02 10*3/uL 0.83-4.51 [facility] Work Phone: Basophil percentageon 2021 Basophils/100 WBC (Bld) 1.1 % 0-1 [facility] Work Phone: Chloride [Moles/Vol] 108 mmol/L 98-[address] [facility] Work Phone: [phone] Eosinophils/100 WBC (Bld) 2.9 % 0-5 [facility] Work Phone: [phone] Glucose [Mass/Vol] 118 mg/dL 74-106 [facility] Work Phone: [phone] Comment on above: Fasting Glucose resu lt from 100 to 125 mg/dL suggests IMPAIRED HOMEOSTASIS per A.D.A. criteria. Neutrophils (Bld) [#/Vol] 4.3 10*3/uL 2.0-7.7 [facility] Work Phone: [phone] Neutrophils/100 WBC (Bld) 57.2 % 47-70 [facility] Work Phone: Potassium [Moles/Vol] 3.9 mmol/L 3.5-5.1 [facility] Work Phone: Sodium [Moles/Vol] 140 mmol/L 136-145 [facility] Work Phone: WBC (Bld) [#/Vol] 7.5 10*3/uL 4.4-11.0 [facility] Work Phone: [phone] Bilirubin Test strip Ql (U)o n 12-03-2021 Bilirubin Ql (U) Negative Negative [facility] Work Phone: Blood erythrocytes count (nu mber/volume)on 12-03-2021 RBC (Bld) [#/Vol] 4.70 10*6/uL 4.6-6.2 [facility] Work Phone: [phone] Blood hemoglobin measurement (mass/volume)on 12-03-2021 Hemoglobin (Bld) [Mass/Vol] 13.7 g/dL 13.0-16.5 [facility] Work Phone: Blood lymphocytes/100 leukoc yteson 12-03-2021 Lymphocytes/100 WBC (Bld) 27.1 % 19-41 [facility] Work Phone: Blood monocytes/100 leukocyt eson 12-03-2021 Monocytes/100 WBC (Bld) 11.0 % 0-10 [facility] Work Phone: Blood platelet mean volumeon 12-03-2021 Platelet mean volume (Bld) [Entitic vol] 9.1 fL 6.2-12.0 [facility] Work Phone: [phone] Culture, urineon 12-03-2021 Bacteria identified Cx Nom (U) Culture exhibits no growth. [facility] Work Phone: Determination of erythrocyte mean corpuscular volume (MCV)on 12-03-2021 MCV (RBC) [Entitic vol] 88.9 fL 80-94 [facility] Work Phone: [phone] Hematocrit Auto (Bld) [Volum e fraction]on 12-03-2021 Hematocrit (Bld) [Volume fraction] 41.8 % 40-54 [facility] Work Phone: [phone] Ketones Test strip Ql (U)on 12-03-2021 Ketones Ql (U) Negative Negative [facility] Work Phone: [phone] Laboratory - Chemistry and C hemistry - challengeon 12-03-2021 CO2 [Moles/Vol] 27.0 mmol/L 21.0-32.0 [facility] Work Phone: [phone] Urea nitrogen/Creatinine [Mass ratio] 9.7 mg/mg 10-20 [facility] Work Phone: Laboratory - Hematology and Cell countson 12-03-2021 Erythrocyte distribution width (RBC) [Entitic vol] 43.4 fL 35.1-43.9 [facility] Work Phone: Erythrocyte distribution width (RBC) [Ratio] 13.2 % 11.6-14.6 [facility] Work Phone: Immature granulocytes/100 WBC (Bld) 0.700 % 0.0-0.9 [facility] Work Phone: Comment on above: IG% - Immature Granu locytes (promyelocytes, myelocytes and metamyelocytes) > 1% indicates that a LEFT SHIFT is Present. MCH (RBC) [Entitic mass] 29.1 pg 27.0-32.0 [facility] Work Phone: Nucleated RBC/100 WBC (Bld) [Ratio] 0 % 0-5 [facility] Work Phone: MCHC Auto (RBC) [Mass/Vol]on 12-03-2021 MCHC (RBC) [Mass/Vol] 32.8 g/dL 32-36 [facility] Work Phone: Nitrite Test strip Ql (U)on 12-03-2021 Nitrite Ql (U) Negative Negative [facility] Work Phone: No Panel Informationon 12-03 Estimated GFR (MDRD) Amer 43 mL/min >60 [facility] Work Phone: Comment on above: GFR Calc Estimated GFR (MDRD) Non-Af Amer 35 mL/min >60 [facility] Work Phone: Comment on above: Non- GFR Calc [place] Level 0.50 mmol/L 0.60-1.20 [facility] Work Phone: Platelets bldon 12-03-2021 Platelets (Bld) [#/Vol] 230 10*3/uL 150-450 [facility] Work Phone: Protein Test strip Ql (U)on 12-03-2021 Protein Ql (U) Negative Negative [facility] Work Phone: Serum or plasma calcium you urement (mass/volume)on 12-03-2021 Calcium [Mass/Vol] 8.9 mg/dL 8.5-10.1 [facility] Work Phone: Serum or plasma creatinine m easurement (mass/volume)on 12-03-2021 Creatinine [Mass/Vol] 2.07 mg/dL 0.70-1.30 [facility] Work Phone: Comment on above: The validity of the calculated GFR & GFRAA in patients over 70 years has not been determined. Clinical correlation is essential. Serum or plasma urea nitroge n measurement (mass/volume)on 12-03-2021 Urea nitrogen [Mass/Vol] 20 mg/dL 7-18 [facility] Work Phone: Thin prep Papanicolaou smear with manual screeningon 12-03-2021 Thin prep Papanicolaou smear with manual screening 5 5-15 [facility] Work Phone: Urine blood detectionon 11-15 RBC Ql (U) Negative Negative [facility] Work Phone: Urine clarityon 12-03-2021 Clarity (U) Clear Clear [facility] Work Phone: Urine color determinationon 12-03-2021 Color (U) Yellow Yellow [facility] Work Phone: Urine glucose detectionon Glucose Ql (U) Normal mg/dl Normal [facility] Work Phone: Urine leukocyte esterase det ection by dipstickon 12-03-2021 Leukocyte esterase Test strip Ql (U) Negative Negative [facility] Work Phone: [phone] Urine pHon 12-03-2021 pH (U) 7.0 [pH] [facility] Work Phone: Urine specific gravity measu rementon 12-03-2021 Specific gravity (U) [Rel density] 1.010 [facility] Work Phone: Urobilinogen Auto test strip Ql (U)on 12-03-2021 Urobilinogen Ql (U) Normal mg/dl Normal [facility] Work Phone: No Panel Informationon 11-09 [place] Level 0.40 mmol/L 0.60-1.20 [facility] Work Phone: [phone] Absolute lymphocyte counton 11-05-2021 Lymphocytes Auto (Unsp spec) [#/Vol] 2.12 10*3/uL 0.83-4.51 [facility] Work Phone: Basophil percentageon 2020 Chloride [Moles/Vol] 110 mmol/L 98-[address] [facility] Work Phone: [phone] Eosinophils/100 WBC (Bld) 2.8 % 0-5 [facility] Work Phone: [phone] Glucose [Mass/Vol] 132 mg/dL 74-106 [facility] Work Phone: Comment on above: Fasting Glucose resu lt greater than or equal to 126 mg/dL suggests DIABETES MELLITUS per A.D.A. criteria.Please note revised GLUCOSE reference range effective 2017. Neutrophils (Bld) [#/Vol] 5.7 10*3/uL 2.0-7.7 [facility] Work Phone: [phone] Potassium [Moles/Vol] 4.0 mmol/L 3.5-5.1 [facility] Work Phone: [phone] Sodium [Moles/Vol] 143 mmol/L 136-145 [facility] Work Phone: WBC (Bld) [#/Vol] 9.3 10*3/uL 4.4-11.0 [facility] Work Phone: [phone] Basophil percentage 10-25 SEEN /hpf [facility] Work Phone: Bilirubin Test strip Ql (U)o n 11-05-2021 Bilirubin Ql (U) Negative Negative [facility] Work Phone: Blood erythrocytes count (nu mber/volume)on 11-05-2021 RBC (Bld) [#/Vol] 4.57 10*6/uL 4.6-6.2 [facility] Work Phone: Blood hemoglobin measurement (mass/volume)on 11-05-2021 Hemoglobin (Bld) [Mass/Vol] 13.4 g/dL 13.0-16.5 [facility] Work Phone: Blood lymphocytes/100 leukoc yteson 11-05-2021 Lymphocytes/100 WBC (Bld) 22.9 % 19-41 [facility] Work Phone: Blood monocytes/100 leukocyt eson 11-05-2021 Monocytes/100 WBC (Bld) 10.9 % 0-10 [facility] Work Phone: [phone] Blood platelet mean volumeon 11-05-2021 Platelet mean volume (Bld) [Entitic vol] 9.1 fL 6.2-12.0 [facility] Work Phone: Culture, urineon 11-05-2021 Bacteria identified Cx Nom (U) Streptococcus mitis/ oralis [facility] Work Phone: Determination of erythrocyte mean corpuscular volume (MCV)on 11-05-2021 MCV (RBC) [Entitic vol] 89.5 fL 80-94 [facility] Work Phone: [phone] Hematocrit Auto (Bld) [Volum e fraction]on 11-05-2021 Hematocrit (Bld) [Volume fraction] 40.9 % 40-54 [facility] Work Phone: Ketones Test strip Ql (U)on 11-05-2021 Ketones Ql (U) Negative Negative [facility] Work Phone: Laboratory - Chemistry and C hemistry - challengeon 11-05-2021 CO2 [Moles/Vol] 28.0 mmol/L 21.0-32.0 [facility] Work Phone: Urea nitrogen/Creatinine [Mass ratio] 11.6 mg/mg 10-20 [facility] Work Phone: Laboratory - Hematology and Cell countson 11-05-2021 Basophils/100 WBC (Unsp spec) 0.9 % 0-1 [facility] Work Phone: Erythrocyte distribution width (RBC) [Entitic vol] 43.5 fL 35.1-43.9 [facility] Work Phone: Erythrocyte distribution width (RBC) [Ratio] 13.3 % 11.6-14.6 [facility] Work Phone: [phone] Immature granulocytes/100 WBC (Bld) 0.600 % 0.0-0.9 [facility] Work Phone: Comment on above: IG% - Immature Granu locytes (promyelocytes, myelocytes and metamyelocytes) > 1% indicates that a LEFT SHIFT is Present. MCH (RBC) [Entitic mass] 29.3 pg 27.0-32.0 [facility] Work Phone: [phone] Neutrophils/100 WBC (Bld) 61.9 % 47-70 [facility] Work Phone: [phone] Nucleated RBC/100 WBC (Bld) [Ratio] 0 % 0-5 [facility] Work Phone: MCHC Auto (RBC) [Mass/Vol]on 11-05-2021 MCHC (RBC) [Mass/Vol] 32.8 g/dL 32-36 [facility] Work Phone: Mucus LM Ql (Urine sed)on Mucus Ql (Urine sed) 0 SEEN /hpf [facility] Work Phone: Nitrite Test strip Ql (U)on 11-05-2021 Nitrite Ql (U) Negative Negative [facility] Work Phone: No Panel Informationon 11-05 Estimated GFR (MDRD) Amer 47 mL/min >60 [facility] Work Phone: Comment on above: GFR Calc Estimated GFR (MDRD) Non-Af Amer 39 mL/min >60 [facility] Work Phone: Comment on above: Non- GFR Calc Platelets bldon 11-05-2021 Platelets (Bld) [#/Vol] 218 10*3/uL 150-450 [facility] Work Phone: Protein Test strip Ql (U)on 11-05-2021 Protein Ql (U) 15 mg/dl Negative [facility] Work Phone: Serum or plasma albumin you urement (mass/volume)on 11-05-2021 Albumin [Mass/Vol] 2.7 g/dL 3.2-5.0 [facility] Work Phone: Serum or plasma calcium you urement (mass/volume)on 11-05-2021 Calcium [Mass/Vol] 8.7 mg/dL 8.5-10.1 [facility] Work Phone: Serum or plasma creatinine m easurement (mass/volume)on 11-05-2021 Creatinine [Mass/Vol] 1.90 mg/dL 0.70-1.30 [facility] Work Phone: Comment on above: The validity of the calculated GFR & GFRAA in patients over 70 years has not been determined. Clinical correlation is essential. Serum or plasma urea nitroge n measurement (mass/volume)on 11-05-2021 Urea nitrogen [Mass/Vol] 22 mg/dL 7-18 [facility] Work Phone: Squamous epithelial cells de tection in urine sediment by light microscopyon 11-05-2021 Epithelial cells.squamous LM Ql (Urine sed) 0-5 SEEN /hpf [facility] Work Phone: Thin prep Papanicolaou smear with manual screeningon 11-05-2021 Thin prep Papanicolaou smear with manual screening 5 5-15 [facility] Work Phone: Urine blood detectionon 10-15 RBC Ql (U) Negative Negative [facility] Work Phone: RBC Ql (U) 0 SEEN /hpf [facility] Work Phone: Urine clarityon 11-05-2021 Clarity (U) Sl. Cloudy Clear [facility] Work Phone: Urine color determinationon 11-05-2021 Color (U) Yellow Yellow [facility] Work Phone: Urine creatinine measurement (mass/volume)on 11-05-2021 Creatinine (U) [Mass/Vol] 169.00 mg/dL NO RANGE EST. [facility] Work Phone: Urine glucose detectionon Glucose Ql (U) Normal mg/dl Normal [facility] Work Phone: Urine leukocyte esterase det ection by dipstickon 11-05-2021 Leukocyte esterase Test strip Ql (U) 100 /ul Negative [facility] Work Phone: Urine pHon 11-05-2021 pH (U) 6.0 [pH] [facility] Work Phone: Urine protein measurement (m ass/volume)on 11-05-2021 Protein (U) [Mass/Vol] 21.0 mg/dL 0.0-11.8 [facility] Work Phone: Urine protein/creatinine mas s ratioon 11-05-2021 Protein/Creatinine (U) [Mass ratio] 124 mg/g CRE 0-200 [facility] Work Phone: Urine sediment bacteria coun t by microscopy (number/high power field)on 11-05-2021 Bacteria LM.HPF (Urine sed) [#/Area] 0 /[HPF] None Seen [facility] Work Phone: Urine specific gravity measu rementon 11-05-2021 Specific gravity (U) [Rel density] 1.020 [facility] Work Phone: Urobilinogen Auto test strip Ql (U)on 11-05-2021 Urobilinogen Ql (U) Normal mg/dl Normal [facility] Work Phone: CBC Auto Differentialon 10-15 Erythrocyte distribution width (RBC) [Ratio] 14.5 % 11.5 - 14.5 % [place] Hematocrit (Bld) [Volume fraction] 42.1 % 40 - 52 % [place] Hemoglobin (Bld) [Mass/Vol] 13.8 g/dL 13 - 18 g/dL [place] Interpretation and review of laboratory results Abnormal [place] MCH (RBC) [Entitic mass] 28.8 pg 26 - 34 pg [place] MCHC (RBC) [Mass/Vol] 32.7 % 32 - 36 % [place] MCV (RBC) [Entitic vol] 88.1 fL 80 - 98 fL [place] Platelet mean volume (Bld) [Entitic vol] 7.9 fL 7.4 - 10.4 fL [place] Platelets (Bld) [#/Vol] 356 10*3/uL 140 - 440 10*3/uL [place] RBC (Bld) [#/Vol] 4.78 10*6/uL 4.4 - 5.9 10*6/uL [place] WBC (Bld) [#/Vol] 16.4 10*3/uL High 3.6 - 10.7 10*3/uL [place] Test Performed by [facility], [address] [place] [address] [place] Comp Panel with Mg Reflexon 11-04-2020 Calcium [Mass/Vol] 8.9 mg/dL Normal 8.4-10.4 [facility] Comment on above: Performed By: #### H EMOG, CMP3M, CRP2, LDH3, FIBGN, DDI2, APTT, FERR3 #### [facility] [address] [place] [address] ALP [Catalytic activity/Vol] 83 U/L Normal 38-126 [facility] Comment on above: Performed By: #### H EMOG, CMP3M, CRP2, LDH3, FIBGN, DDI2, APTT, FERR3 #### [facility] [address] [place] [address] ALT [Catalytic activity/Vol] 133 U/L High 0-49 [facility] Comment on above: Result Comment: The ALT test is performed by an updated assay method. Please note that the reference intervals have been changed and are now sex specific. Performed By: #### H EMOG, CMP3M, CRP2, LDH3, FIBGN, DDI2, APTT, FERR3 #### [facility] [address] [place] [address] Anion gap [Moles/Vol] 9 Normal [facility] Comment on above: Performed By: #### H EMOG, CMP3M, CRP2, LDH3, FIBGN, DDI2, APTT, FERR3 #### [facility] [address] [place] [address] AST [Catalytic activity/Vol] 39 U/L Normal 15-46 [facility] Comment on above: Performed By: #### H EMOG, CMP3M, CRP2, LDH3, FIBGN, DDI2, APTT, FERR3 #### [facility] [address] [place] [address] Bilirubin [Mass/Vol] 0.6 mg/dL Normal 0.2-1.3 [facility] Comment on above: Performed By: #### H EMOG, CMP3M, CRP2, LDH3, FIBGN, DDI2, APTT, FERR3 #### [facility] [address] [place] [address] CO2 [Moles/Vol] 20 mmol/L Low 22-30 [facility] Comment on above: Performed By: #### H EMOG, CMP3M, CRP2, LDH3, FIBGN, DDI2, APTT, FERR3 #### [facility] [address] [place] [address] Glucose [Mass/Vol] 140 mg/dL High 70-100 [facility] Comment on above: Performed By: #### H EMOG, CMP3M, CRP2, LDH3, FIBGN, DDI2, APTT, FERR3 #### [facility] [address] [place] [address] Protein [Mass/Vol] 6.1 g/dL Low 6.3-8.2 [facility] Comment on above: Performed By: #### H EMOG, CMP3M, CRP2, LDH3, FIBGN, DDI2, APTT, FERR3 #### [facility] [address] [place] [address] Urea nitrogen [Mass/Vol] 41 mg/dL High 7-20 [facility] Comment on above: Performed By: #### H EMOG, CMP3M, CRP2, LDH3, FIBGN, DDI2, APTT, FERR3 #### [facility] [address] [place] [address] Creatinine [Mass/Vol] 1.84 mg/dL High 0.52-1.25 [facility] Comment on above: Performed By: #### H EMOG, CMP3M, CRP2, LDH3, FIBGN, DDI2, APTT, FERR3 #### [facility] [address] [place] [address] GFR/1.73 sq M predicted among blacks MDRD (S/P/Bld) [Vol rate/Area] 46.0 mL/min/{1.73_m2} Abnormal >60 [facility] Comment on above: Performed By: #### H EMOG, CMP3M, CRP2, LDH3, FIBGN, DDI2, APTT, FERR3 #### [facility] [address] [place] [address] GFR/1.73 sq M predicted among non-blacks MDRD (S/P/Bld) [Vol rate/Area] 39.7 mL/min/{1.73_m2} Abnormal >60 [facility] Comment on above: Result Comment: KDIG [...] CRP2, LDH3, FIBGN, DDI2, APTT, FERR3 #### [facility] [address] [place] [address] Albumin [Mass/Vol] 3.4 g/dL Low 3.5-5.0 [facility] Comment on above: Performed By: #### H EMOG, CMP3M, CRP2, LDH3, FIBGN, DDI2, APTT, FERR3 #### [facility] [address] [place] [address] Chloride [Moles/Vol] 106 mmol/L Normal 98-107 [facility] Comment on above: Performed By: #### H EMOG, CMP3M, CRP2, LDH3, FIBGN, DDI2, APTT, FERR3 #### [facility] [address] [place] [address] Potassium [Moles/Vol] 4.3 mmol/L Normal 3.5-5.1 [facility] Comment on above: Performed By: #### H EMOG, CMP3M, CRP2, LDH3, FIBGN, DDI2, APTT, FERR3 #### [facility] [address] [place] [address] Sodium [Moles/Vol] 134 mmol/L Low 135-145 [facility] Comment on above: Performed By: #### H EMOG, CMP3M, CRP2, LDH3, FIBGN, DDI2, APTT, FERR3 #### [facility] [address] [place] [address] Comprehensive Metabolic Pane l w/ Reflex to MGon 11-04-2020 Albumin [Mass/Vol] 3.4 g/dL Low 3.5 - 5 g/dL [place] ALP [Catalytic activity/Vol] 83 U/L 38 - 126 U/L [place] ALT [Catalytic activity/Vol] 133 U/L High 0 - 49 U/L [place] Comment on above: The ALT test is perf ormed by an updated assay method. Please note that the reference intervals have been changed and are now sex specific. Anion gap [Moles/Vol] 9 mmol/L [place], [place] AST [Catalytic activity/Vol] 39 U/L 15 - 46 U/L [place] Bilirubin Ql (U) 0.6 mg/dL 0.2 - 1.3 mg/dL [place] Calcium [Mass/Vol] 8.9 mg/dL 8.4 - 10. 4 mg/dL [place] Chloride [Moles/Vol] 106 mmol/L 98 - 10 7 mmol/L [place] CO2 [Moles/Vol] 20 mmol/L Low 22 - 30 mmol/L [place] Creatinine [Mass/Vol] 1.84 mg/dL High 0.52 - 1.25 mg/dL [place] EGFR IF NonAfrican [place] 39.7 mL/min Abnormal >60 [place] Comment on above: KDIGO guidelines pro [...] (S/P/Bld) [Vol rate/Area] 46.0 mL/min/{1.73_m2} Abnormal >60 [place] Glucose [Mass/Vol] 140 mg/dL High 70 - 100 mg/dL [place] Interpretation and review of laboratory results Abnormal [place] Potassium [Moles/Vol] 4.3 mmol/L 3.5 - 5.1 mmol/L [place] Protein [Mass/Vol] 6.1 g/dL Low 6.3 - 8.2 g/dL [place] Sodium [Moles/Vol] 134 mmol/L Low 135 - 145 mmol/L [place] Urea nitrogen [Mass/Vol] 41 mg/dL High 7 - 20 mg/dL [place] Test Performed by [facility], [address] [place] [address] [place] Hemogram w/ Autodiffon 11-04 Erythrocyte distribution width (RBC) [Ratio] 14.5 % Normal 11.5-14.5 [facility] Comment on above: Performed By: #### H EMOG, CMP3M, CRP2, LDH3, FIBGN, DDI2, APTT, FERR3 #### [facility] [address] [place] [address] Hematocrit (Bld) [Volume fraction] 42.1 % Normal 40.0-52.0 [facility] Comment on above: Performed By: #### H EMOG, CMP3M, CRP2, LDH3, FIBGN, DDI2, APTT, FERR3 #### [facility] [address] [place] [address] Hemoglobin (Bld) [Mass/Vol] 13.8 g/dL Normal 13.0-18.0 [facility] Comment on above: Performed By: #### H EMOG, CMP3M, CRP2, LDH3, FIBGN, DDI2, APTT, FERR3 #### [facility] [address] [place] [address] MCH (RBC) [Entitic mass] 28.8 pg Normal 26.0-34.0 [facility] Comment on above: Performed By: #### H EMOG, CMP3M, CRP2, LDH3, FIBGN, DDI2, APTT, FERR3 #### [facility] [address] [place] [address] MCHC (RBC) [Mass/Vol] 32.7 % Normal 32.0-36.0 [facility] Comment on above: Performed By: #### H EMOG, CMP3M, CRP2, LDH3, FIBGN, DDI2, APTT, FERR3 #### [facility] [address] [place] [address] MCV (RBC) [Entitic vol] 88.1 fL Normal 80.0-98.0 [facility] Comment on above: Performed By: #### H EMOG, CMP3M, CRP2, LDH3, FIBGN, DDI2, APTT, FERR3 #### [facility] [address] [place] [address] Platelet mean volume (Bld) [Entitic vol] 7.9 fL Normal 7.4-10.4 [facility] Comment on above: Performed By: #### H EMOG, CMP3M, CRP2, LDH3, FIBGN, DDI2, APTT, FERR3 #### [facility] [address] [place] [address] Platelets (Bld) [#/Vol] 356 10*3/uL Normal 140-440 [facility] Comment on above: Performed By: #### H EMOG, CMP3M, CRP2, LDH3, FIBGN, DDI2, APTT, FERR3 #### [facility] [address] [place] [address] RBC (Bld) [#/Vol] 4.78 10*6/uL Normal 4.40-5.90 [facility] Comment on above: Performed By: #### H EMOG, CMP3M, CRP2, LDH3, FIBGN, DDI2, APTT, FERR3 #### [facility] [address] [place] [address] WBC (Bld) [#/Vol] 16.4 10*3/uL High 3.6-10.7 [facility] Comment on above: Performed By: #### H EMOG, CMP3M, CRP2, LDH3, FIBGN, DDI2, APTT, FERR3 #### [facility] [address] [place] [address] Manual Diffon 11-04-2020 Abs Baso Cnt 0.0 10*3/uL Normal 0.0-0.2 [facility] Comment on above: Performed By: #### H EMOG, CMP3M, CRP2, LDH3, FIBGN, DDI2, APTT, FERR3 #### [facility] [address] [place] [address] Abs Eosin Cnt 0.0 10*3/uL Normal 0.0-0.5 [facility] Comment on above: Performed By: #### H EMOG, CMP3M, CRP2, LDH3, FIBGN, DDI2, APTT, FERR3 #### [facility] [address] [place] [address] Abs Lymph Cnt 1.0 10*3/uL Low 1.1-4.5 [facility] Comment on above: Performed By: #### H EMOG, CMP3M, CRP2, LDH3, FIBGN, DDI2, APTT, FERR3 #### [facility] [address] [place] [address] Abs Monocyte Cnt 1.3 10*3/uL High 0.2-1.1 [facility] Comment on above: Performed By: #### H EMOG, CMP3M, CRP2, LDH3, FIBGN, DDI2, APTT, FERR3 #### [facility] [address] [place] [address] Abs Neutrophile Cnt 13.1 10*3/uL High 2.2-8.2 [facility] Comment on above: Performed By: #### H EMOG, CMP3M, CRP2, LDH3, FIBGN, DDI2, APTT, FERR3 #### [facility] [address] [place] [address] Anisocytosis Ql (Bld) Slight Normal [facility] Comment on above: Performed By: #### H EMOG, CMP3M, CRP2, LDH3, FIBGN, DDI2, APTT, FERR3 #### [facility] [address] [place] [address] Bands 2 % Normal 0-3 [facility] Comment on above: Performed By: #### H EMOG, CMP3M, CRP2, LDH3, FIBGN, DDI2, APTT, FERR3 #### [facility] [address] [place] [address] Basophils 0 % Normal 0-2 [facility] Comment on above: Performed By: #### H EMOG, CMP3M, CRP2, LDH3, FIBGN, DDI2, APTT, FERR3 #### [facility] [address] [place] [address] [place] Cells Slight Normal [facility] Comment on above: Performed By: #### H EMOG, CMP3M, CRP2, LDH3, FIBGN, DDI2, APTT, FERR3 #### [facility] [address] [place] [address] Cells counted 100 Normal [facility] Comment on above: Performed By: #### H EMOG, CMP3M, CRP2, LDH3, FIBGN, DDI2, APTT, FERR3 #### [facility] [address] [place] [address] Eosinophils 0 % Low 1-6 [facility] Comment on above: Performed By: #### H EMOG, CMP3M, CRP2, LDH3, FIBGN, DDI2, APTT, FERR3 #### [facility] [address] [place] [address] Lymphocytes 6 % Low 20-40 [facility] Comment on above: Performed By: #### H EMOG, CMP3M, CRP2, LDH3, FIBGN, DDI2, APTT, FERR3 #### [facility] [address] [place] [address] Metamyelocytes 5 % Abnormal <1 [facility] Comment on above: Performed By: #### H EMOG, CMP3M, CRP2, LDH3, FIBGN, DDI2, APTT, FERR3 #### [facility] [address] [place] [address] Monocytes 8 % Normal 2-10 [facility] Comment on above: Performed By: #### H EMOG, CMP3M, CRP2, LDH3, FIBGN, DDI2, APTT, FERR3 #### [facility] [address] [place] [address] Myelocytes 1 % Abnormal <1 [facility] Comment on above: Performed By: #### H EMOG, CMP3M, CRP2, LDH3, FIBGN, DDI2, APTT, FERR3 #### [facility] [address] [place] [address] Poikilocytosis Slight Normal [facility] Comment on above: Performed By: #### H EMOG, CMP3M, CRP2, LDH3, FIBGN, DDI2, APTT, FERR3 #### [facility] [address] [place] [address] RBC morphology finding Nom (Bld) ABNORMAL Normal [facility] Comment on above: Performed By: #### H EMOG, CMP3M, CRP2, LDH3, FIBGN, DDI2, APTT, FERR3 #### [facility] [address] [place] [address] Seg Neutrophils 78 % Normal 40-80 [facility] Comment on above: Performed By: #### H EMOG, CMP3M, CRP2, LDH3, FIBGN, DDI2, APTT, FERR3 #### [facility] [address] [place] [address] Manual Differentialon 2019 Absolute Baso # 0.0 10*3/uL 0 - 0.2 10*3/uL [facility], [place] Absolute Eos # 0.0 10*3/uL 0 - 0.5 10*3/uL [facility], [place] Absolute Lymph # 1.0 10*3/uL Low 1.1 - 4.5 10*3/uL [facility] Absolute [place] # 1.3 10*3/uL High 0.2 - 1.1 10*3/uL [facility], [place] Absolute Neut # 13.1 10*3/uL High 2.2 - 8.2 10*3/uL [facility], [place] Anisocytosis Ql (Bld) Slight [facility] [place], [place] Bands 2 % 0 - 3 % [facility] [place], [place] Basophils 0 % 0 - 2 % [facility], [place] Danya Cells Slight [facility], [place] Eosinophils 0 % Low 1 - 6 % [facility], [place] Interpretation and review of laboratory results Abnormal [facility], [place] Lymphocytes 6 % Low 20 - 40 % [facility] Metamyelocytes 5 % Abnormal <1 [facility], [place] Monocytes 8 % 2 - 10 % [facility], [place] Myelocytes 1 % Abnormal <1 [place] Poikilocytes Slight [place] RBC morphology finding Nom (Bld) ABNORMAL [place] Seg Neutrophils 78 % 40 - 80 % [place] TOTAL CELLS COUNTED 100 [place] Test Performed by [facility], [address], [place] [address] [place] Add On Lab Teston 11-03-2020 Sodium [Moles/Vol] Accepted [place] Comment on above: Specimen available & acceptable for analysis. Test Performed by [facility], [address] [place], [place] [address] [place] Add on test from HISon 11-03 Add on test from HIS Accepted Normal [facility] Comment on above: Result Comment: Spec imen available & acceptable for analysis. Performed By: #### H EMOG, CMP3M, CRP2, LDH3, FIBGN, DDI2, APTT, FERR3 #### [facility] [address] [place] [address] CBC Auto Differentialon 10-15 Erythrocyte distribution width (RBC) [Ratio] 14.3 % 11.5 - 14.5 % [place] Hematocrit (Bld) [Volume fraction] 39.0 % Low 40 - 52 % [place] Hemoglobin (Bld) [Mass/Vol] 12.8 g/dL Low 13 - 18 g/dL [place] Interpretation and review of laboratory results Abnormal [place] MCH (RBC) [Entitic mass] 28.7 pg 26 - 34 pg [place] MCHC (RBC) [Mass/Vol] 32.8 % 32 - 36 % [place] MCV (RBC) [Entitic vol] 87.6 fL 80 - 98 fL [place], [place] Platelet mean volume (Bld) [Entitic vol] 7.5 fL 7.4 - 10.4 fL [place] Platelets (Bld) [#/Vol] 332 10*3/uL 140 - 440 10*3/uL [place] RBC (Bld) [#/Vol] 4.45 10*6/uL 4.4 - 5.9 10*6/uL [facility] WBC (Bld) [#/Vol] 15.6 10*3/uL High 3.6 - 10.7 10*3/uL [place] Test Performed by [facility], [address], [place] [address] [place] CR Chest PA/LATon 11-03-2020 CR Chest PA/LAT Patient Name: REGGIE WILSON Diagnostic Radiology ACCESSION EXAM DATE/TIME PROCEDURE ORDERING PROVIDER [id number] 11/03/2020 10:20 EST CR Chest PA and LAT MD EMILY, FARRUKH MCCORMICK CPT code 17365 Reason For Exam (CR Chest PA and [...] Transcribed Date and Time: 11/03/2020 10:59 Normal [facility] Comp Panel with Mg Reflexon 11-03-2020 Calcium [Mass/Vol] 9.0 mg/dL Normal 8.4-10.4 [facility] Comment on above: Performed By: #### H EMOG, CMP3M, CRP2, LDH3, FIBGN, DDI2, APTT, FERR3 #### [facility] [address] [place] [address] Anion gap [Moles/Vol] 5 Normal [facility] Comment on above: Performed By: #### H EMOG, CMP3M, CRP2, LDH3, FIBGN, DDI2, APTT, FERR3 #### [facility] [address] [place] [address] Bilirubin [Mass/Vol] 0.7 mg/dL Normal 0.2-1.3 [facility] Comment on above: Performed By: #### H EMOG, CMP3M, CRP2, LDH3, FIBGN, DDI2, APTT, FERR3 #### [facility] [address] [place] [address] Creatinine [Mass/Vol] 2.08 mg/dL High 0.52-1.25 [facility] Comment on above: Performed By: #### H EMOG, CMP3M, CRP2, LDH3, FIBGN, DDI2, APTT, FERR3 #### [facility] [address] [place] [address] GFR/1.73 sq M predicted among blacks MDRD (S/P/Bld) [Vol rate/Area] 39.6 mL/min/{1.73_m2} Abnormal >60 [facility] Comment on above: Performed By: #### H EMOG, CMP3M, CRP2, LDH3, FIBGN, DDI2, APTT, FERR3 #### [facility] [address] [place] [address] GFR/1.73 sq M predicted among non-blacks MDRD (S/P/Bld) [Vol rate/Area] 34.2 mL/min/{1.73_m2} Abnormal >60 [facility] Comment on above: Result Comment: KDIG [...] CRP2, LDH3, FIBGN, DDI2, APTT, FERR3 #### [facility] [address] [place] [address] Albumin [Mass/Vol] 3.4 g/dL Low 3.5-5.0 [facility] Comment on above: Performed By: #### H EMOG, CMP3M, CRP2, LDH3, FIBGN, DDI2, APTT, FERR3 #### [facility] [address] [place] [address] Chloride [Moles/Vol] 107 mmol/L Normal 98-107 [facility] Comment on above: Performed By: #### H EMOG, CMP3M, CRP2, LDH3, FIBGN, DDI2, APTT, FERR3 #### [facility] [address] [place] [address] Potassium [Moles/Vol] 3.8 mmol/L Normal 3.5-5.1 [facility] Comment on above: Performed By: #### H EMOG, CMP3M, CRP2, LDH3, FIBGN, DDI2, APTT, FERR3 #### [facility] [address] [place] [address] Sodium [Moles/Vol] 134 mmol/L Low 135-145 [facility] Comment on above: Performed By: #### H EMOG, CMP3M, CRP2, LDH3, FIBGN, DDI2, APTT, FERR3 #### [facility] [address] [place] [address] ALP [Catalytic activity/Vol] 83 U/L Normal 38-126 [place] Comment on above: Performed By: #### H EMOG, CMP3M, CRP2, LDH3, FIBGN, DDI2, APTT, FERR3 #### [facility] [address] [place] [address] ALT [Catalytic activity/Vol] 175 U/L High 0-49 [place], [place] Comment on above: Result Comment: The ALT test is performed by an updated assay method. Please note that the reference intervals have been changed and are now sex specific. Performed By: #### H EMOG, CMP3M, CRP2, LDH3, FIBGN, DDI2, APTT, FERR3 #### [facility] [address] [place] [address] The ALT test is perf ormed by an updated assay method. Please note that the reference intervals have been changed and are now sex specific. AST [Catalytic activity/Vol] 63 U/L High 15-46 [place], [place] Comment on above: Performed By: #### H EMOG, CMP3M, CRP2, LDH3, FIBGN, DDI2, APTT, FERR3 #### [facility] [address] [place] [address] CO2 [Moles/Vol] 21 mmol/L Low 22-30 [place], [place] Comment on above: Performed By: #### H EMOG, CMP3M, CRP2, LDH3, FIBGN, DDI2, APTT, FERR3 #### [facility] [address] [place] [address] Glucose [Mass/Vol] 139 mg/dL High 70-100 [place], [place] Comment on above: Performed By: #### H EMOG, CMP3M, CRP2, LDH3, FIBGN, DDI2, APTT, FERR3 #### [facility] [address] [place] [address] Protein [Mass/Vol] 5.9 g/dL Low 6.3-8.2 [place], [place] Comment on above: Performed By: #### H EMOG, CMP3M, CRP2, LDH3, FIBGN, DDI2, APTT, FERR3 #### [facility] [address] [place] [address] Urea nitrogen [Mass/Vol] 43 mg/dL High 7-20 [place], [place] Comment on above: Performed By: #### H EMOG, CMP3M, CRP2, LDH3, FIBGN, DDI2, APTT, FERR3 #### [facility] [address] [place] [address] Comprehensive Metabolic Pane l w/ Reflex to MGon 11-03-2020 Albumin [Mass/Vol] 3.4 g/dL Low 3.5 - 5 g/dL [place], [place] Anion gap [Moles/Vol] 5 mmol/L [place], [place] Bilirubin Ql (U) 0.7 mg/dL 0.2 - 1.3 mg/dL [place] Calcium [Mass/Vol] 9.0 mg/dL 8.4 - 10. 4 mg/dL [place] Chloride [Moles/Vol] 107 mmol/L 98 - 10 7 mmol/L [place] Creatinine [Mass/Vol] 2.08 mg/dL High 0.52 - 1.25 mg/dL [place] EGFR IF NonAfrican [place]ij[place] 34.2 mL/min Abnormal >60 [place], [place] Comment on above: KDIGO guidelines pro [...] (S/P/Bld) [Vol rate/Area] 39.6 mL/min/{1.73_m2} Abnormal >60 [place] Interpretation and review of laboratory results Abnormal [place] Potassium [Moles/Vol] 3.8 mmol/L 3.5 - 5.1 mmol/L [place] Sodium [Moles/Vol] 134 mmol/L Low 135 - 145 mmol/L [place] Test Performed by [facility], [address] [place], [address] [place], [place] Hemogram w/ Autodiffon 11-03 Erythrocyte distribution width (RBC) [Ratio] 14.3 % Normal 11.5-14.5 [facility] Comment on above: Performed By: #### H EMOG, CMP3M, CRP2, LDH3, FIBGN, DDI2, APTT, FERR3 #### [facility] [address] [place] [address] Hematocrit (Bld) [Volume fraction] 39.0 % Low 40.0-52.0 [facility] Comment on above: Performed By: #### H EMOG, CMP3M, CRP2, LDH3, FIBGN, DDI2, APTT, FERR3 #### [facility] [address] [place] [address] Hemoglobin (Bld) [Mass/Vol] 12.8 g/dL Low 13.0-18.0 [facility] Comment on above: Performed By: #### H EMOG, CMP3M, CRP2, LDH3, FIBGN, DDI2, APTT, FERR3 #### [facility] [address] [place] [address] MCH (RBC) [Entitic mass] 28.7 pg Normal 26.0-34.0 [facility] Comment on above: Performed By: #### H EMOG, CMP3M, CRP2, LDH3, FIBGN, DDI2, APTT, FERR3 #### [facility] [address] [place] [address] MCHC (RBC) [Mass/Vol] 32.8 % Normal 32.0-36.0 [facility] Comment on above: Performed By: #### H EMOG, CMP3M, CRP2, LDH3, FIBGN, DDI2, APTT, FERR3 #### [facility] [address] [place] [address] MCV (RBC) [Entitic vol] 87.6 fL Normal 80.0-98.0 [facility] Comment on above: Performed By: #### H EMOG, CMP3M, CRP2, LDH3, FIBGN, DDI2, APTT, FERR3 #### [facility] [address] [place] [address] Platelet mean volume (Bld) [Entitic vol] 7.5 fL Normal 7.4-10.4 [facility] Comment on above: Performed By: #### H EMOG, CMP3M, CRP2, LDH3, FIBGN, DDI2, APTT, FERR3 #### [facility] [address] [place] [address] Platelets (Bld) [#/Vol] 332 10*3/uL Normal 140-440 [facility] Comment on above: Performed By: #### H EMOG, CMP3M, CRP2, LDH3, FIBGN, DDI2, APTT, FERR3 #### [facility] [address] [place] [address] RBC (Bld) [#/Vol] 4.45 10*6/uL Normal 4.40-5.90 [facility] Comment on above: Performed By: #### H EMOG, CMP3M, CRP2, LDH3, FIBGN, DDI2, APTT, FERR3 #### [facility] [address] [place] [address] WBC (Bld) [#/Vol] 15.6 10*3/uL High 3.6-10.7 [facility] Comment on above: Performed By: #### H EMOG, CMP3M, CRP2, LDH3, FIBGN, DDI2, APTT, FERR3 #### [facility] [address] [place] [address] Manual Diffon 11-03-2020 Abs Lymph Cnt 2.0 10*3/uL Normal 1.1-4.5 [facility] Comment on above: Performed By: #### H EMOG, CMP3M, CRP2, LDH3, FIBGN, DDI2, APTT, FERR3 #### [facility] [address] [place] [address] Abs Monocyte Cnt 2.2 10*3/uL High 0.2-1.1 [facility] Comment on above: Performed By: #### H EMOG, CMP3M, CRP2, LDH3, FIBGN, DDI2, APTT, FERR3 #### [facility] [address] [place] [address] Abs Neutrophile Cnt 11.4 10*3/uL High 2.2-8.2 [facility] Comment on above: Performed By: #### H EMOG, CMP3M, CRP2, LDH3, FIBGN, DDI2, APTT, FERR3 #### [facility] [address] [place] [address] Anisocytosis Ql (Bld) Slight Normal [facility] Comment on above: Performed By: #### H EMOG, CMP3M, CRP2, LDH3, FIBGN, DDI2, APTT, FERR3 #### [facility] [address] [place] [address] Bands 4 % High 0-3 [facility] Comment on above: Performed By: #### H EMOG, CMP3M, CRP2, LDH3, FIBGN, DDI2, APTT, FERR3 #### [facility] [address] [place] [facility] [place] Cells Slight Normal [facility] Comment on above: Performed By: #### H EMOG, CMP3M, CRP2, LDH3, FIBGN, DDI2, APTT, FERR3 #### [facility] [address] [place] [address] Lymphocytes 13 % Low 20-40 [facility] Comment on above: Performed By: #### H EMOG, CMP3M, CRP2, LDH3, FIBGN, DDI2, APTT, FERR3 #### [facility] [address] [place] [address] Monocytes 14 % High 2-10 [facility] Comment on above: Performed By: #### H EMOG, CMP3M, CRP2, LDH3, FIBGN, DDI2, APTT, FERR3 #### [facility] [address] [place] [address] NRBC 1 /100{WBCs} High -1-0 [facility] Comment on above: Result Comment: [place] (<60 days) 1-10 Adult <1 Performed By: #### H EMOG, CMP3M, CRP2, LDH3, FIBGN, DDI2, APTT, FERR3 #### [facility] [address] [place] [address] RBC morphology finding Nom (Bld) ABNORMAL Normal [facility] Comment on above: Performed By: #### H EMOG, CMP3M, CRP2, LDH3, FIBGN, DDI2, APTT, FERR3 #### [facility] [address] [place] [address] Seg Neutrophils 69 % Normal 40-80 [facility] Comment on above: Performed By: #### H EMOG, CMP3M, CRP2, LDH3, FIBGN, DDI2, APTT, FERR3 #### [facility] [address] [place] [address] Tear Drop Forms Slight Normal [facility] Comment on above: Performed By: #### H EMOG, CMP3M, CRP2, LDH3, FIBGN, DDI2, APTT, FERR3 #### [facility] [address] [place] [address] Abs Baso Cnt 0.0 10*3/uL Normal 0.0-0.2 [facility] Comment on above: Performed By: #### H EMOG, CMP3M, CRP2, LDH3, FIBGN, DDI2, APTT, FERR3 #### [facility] [address] [place] [address] Abs Eosin Cnt 0.0 10*3/uL Normal 0.0-0.5 [facility] Comment on above: Performed By: #### H EMOG, CMP3M, CRP2, LDH3, FIBGN, DDI2, APTT, FERR3 #### [facility] [address] [place] [address] Basophils 0 % Normal 0-2 [facility] Comment on above: Performed By: #### H EMOG, CMP3M, CRP2, LDH3, FIBGN, DDI2, APTT, FERR3 #### [facility] [address] [place] [address] Cells counted 100 Normal [facility] Comment on above: Performed By: #### H EMOG, CMP3M, CRP2, LDH3, FIBGN, DDI2, APTT, FERR3 #### [facility] [address] [place] [address] Eosinophils 0 % Low 1-6 [facility] Comment on above: Performed By: #### H EMOG, CMP3M, CRP2, LDH3, FIBGN, DDI2, APTT, FERR3 #### [facility] [address] [place] [address] Manual Differentialon 2019 Absolute Baso # 0.0 10*3/uL 0 - 0.2 10*3/uL [facility], [place] Absolute Eos # 0.0 10*3/uL 0 - 0.5 10*3/uL [facility], [place] Absolute Lymph # 2.0 10*3/uL 1.1 - 4.5 10*3/uL [facility] Absolute [place] # 2.2 10*3/uL High 0.2 - 1.1 10*3/uL [facility], [place] Absolute Neut # 11.4 10*3/uL High 2.2 - 8.2 10*3/uL [facility], [place] Anisocytosis Ql (Bld) Slight [facility], [place] Bands 4 % High 0 - 3 % [facility], [place] Basophils 0 % 0 - 2 % [facility], [place] Cells Slight [place], [place] Eosinophils 0 % Low 1 - 6 % [facility], [place] Interpretation and review of laboratory results Abnormal [place] Lymphocytes 13 % Low 20 - 40 % [facility], [place] Monocytes 14 % High 2 - 10 % [facility], [place] nRBC 1 /100{WBCs} High -1 - 0 /100{WBCs} [place] Comment on above: [place] (<60 days) 1 -10 Adult <1 RBC morphology finding Nom (Bld) ABNORMAL [facility], [place] Seg Neutrophils 69 % 40 - 80 % [facility] Tear Drop Cells Slight [facility], [place] TOTAL CELLS COUNTED 100 [place] Test Performed by [facility], [address], [place] [address] [facility], [place] Procalcitoninon 11-03-2020 Procalcitonin < 0.10 Normal <0.10 [facility] Comment on above: Performed By: #### H EMOG, CMP3M, CRP2, LDH3, FIBGN, DDI2, APTT, FERR3 #### [facility] [address] [place] [address] Procalcitonin <0.10 <0.10 ng/mL [place], [place] Sodium [Moles/Vol] See Below [place], [place] Comment on above: PCT <0.50 = Low risk of severe sepsis and/or septic shock. PCT >2.00 = High risk of severe sepsis and/or septic shock. Test Performed by [facility], [address] [place] [id number] [place], [place] Interpretation See Below Normal [facility] Comment on above: Result Comment: PCT <0.50 = Low risk of severe sepsis and/or septic shock. PCT >2.00 = High risk of severe sepsis and/or septic shock. Performed By: #### H EMOG, CMP3M, CRP2, LDH3, FIBGN, DDI2, APTT, FERR3 #### [facility] [address] [place] [address] XR CHEST (2 VW)on 11-03-2020 [facility], [facility] Incoming Radiology Results From [facility] - 11/03/2020 10:59 AM EST Patient Name: REGGIE LEÓN Diagnostic Radiology ACCESSION EXAM DATE/TIME PROCEDURE ORDERING PROVIDER [id number] 11/03/2020 10:20 EST CR Chest PA & LAT MD EMILY, FARRUKH MCCORMICK CPT code 15011 Reason For Exam (CR Chest PA & [...] JEFFREY Transcribed Date and Time: 11/03/2020 10:59 [place], [place] Patient Name: REGGIE WILSON Diagnostic Radiology ACCESSION EXAM DATE/TIME PROCEDURE ORDERING PROVIDER [id number] 11/03/2020 10:20 EST CR Chest PA & LAT MD DIAZ IMOLA KINGA CPT code 75691 Reason For Exam (CR Chest PA & [...] Improving bilateral infiltrates. Report Dictated on Workstation: [id number] --- Final --- Dictating Physician: MD BURDICK JEFFREY Signed Date and Time: 11/03/2020 10:58 am Signed by: MD BURDCIK JEFFREY Transcribed Date and Time: 11/03/2020 10:59 [place] APTTon 11-02-2020 aPTT Coag (Bld) [Time] 30.4 s Normal 20.0-30.5 [facility] Comment on above: Result Comment: NOTE : The therapeutic time for Heparin anticoagulation, based on Xa activity inhibition, is an APTT of 46-80 seconds. Performed By: #### H EMOG, CMP3M, CRP2, LDH3, FIBGN, DDI2, APTT, FERR3 #### [facility] [address] [place] [address] aPTT Coag (Bld) [Time] 30.4 s 20 - 30.5 s [place] Comment on above: NOTE: The therapeuti c time for Heparin anticoagulation, based on Xa activity inhibition, is an APTT of 46-80 seconds. C-Reactive Proteinon 020 CRP [Mass/Vol] 10.2 mg/L High 0.0-6.0 [facility] Comment on above: Result Comment: . Performed By: #### H EMOG, CMP3M, CRP2, LDH3, FIBGN, DDI2, APTT, FERR3 #### [facility] [address] [place] [address] CRP [Mass/Vol] 10.2 mg/L High 0 - 6 mg/L [place], [place] Comment on above: . CBCon 11-02-2020 Erythrocyte distribution width (RBC) [Ratio] 14.2 % 11.5 - 14.5 % [place] Hematocrit (Bld) [Volume fraction] 39.5 % Low 40 - 52 % [place] Hemoglobin (Bld) [Mass/Vol] 13.2 g/dL 13 - 18 g/dL [place] Interpretation and review of laboratory results Abnormal [place] MCH (RBC) [Entitic mass] 29.4 pg 26 - 34 pg [place] MCHC (RBC) [Mass/Vol] 33.5 % 32 - 36 % [place], [place] MCV (RBC) [Entitic vol] 87.8 fL 80 - 98 fL [place], [place] Platelet mean volume (Bld) [Entitic vol] 7.6 fL 7.4 - 10.4 fL [place], [place] Platelets (Bld) [#/Vol] 340 10*3/uL 140 - 440 10*3/uL [place] RBC (Bld) [#/Vol] 4.49 10*6/uL 4.4 - 5.9 10*6/uL [place] WBC (Bld) [#/Vol] 13.0 10*3/uL High 3.6 - 10.7 10*3/uL [place] Test Performed by [facility], [address], [place], [place] [address] [place], [place] Comp Panel with Mg Reflexon 11-02-2020 ALT [Catalytic activity/Vol] 198 U/L High 0-49 [facility] Comment on above: Result Comment: The ALT test is performed by an updated assay method. Please note that the reference intervals have been changed and are now sex specific. Performed By: #### H EMOG, CMP3M, CRP2, LDH3, FIBGN, DDI2, APTT, FERR3 #### [facility] [address] [place] [address] Calcium [Mass/Vol] 8.8 mg/dL Normal 8.4-10.4 [facility] Comment on above: Performed By: #### H EMOG, CMP3M, CRP2, LDH3, FIBGN, DDI2, APTT, FERR3 #### [facility] [address] [place] [address] Glucose [Mass/Vol] 135 mg/dL High 70-100 [facility] Comment on above: Performed By: #### H EMOG, CMP3M, CRP2, LDH3, FIBGN, DDI2, APTT, FERR3 #### [facility] [address] [place] [address] ALP [Catalytic activity/Vol] 85 U/L Normal 38-126 [facility] Comment on above: Performed By: #### H EMOG, CMP3M, CRP2, LDH3, FIBGN, DDI2, APTT, FERR3 #### [facility] [address] [place] [address] Anion gap [Moles/Vol] 9 Normal [facility] Comment on above: Performed By: #### H EMOG, CMP3M, CRP2, LDH3, FIBGN, DDI2, APTT, FERR3 #### [facility] [address] [place] [address] AST [Catalytic activity/Vol] 104 U/L High 15-46 [facility] Comment on above: Performed By: #### H EMOG, CMP3M, CRP2, LDH3, FIBGN, DDI2, APTT, FERR3 #### [facility] [address] [place] [address] Bilirubin [Mass/Vol] 0.7 mg/dL Normal 0.2-1.3 [facility] Comment on above: Performed By: #### H EMOG, CMP3M, CRP2, LDH3, FIBGN, DDI2, APTT, FERR3 #### [facility] [address] [place] [address] CO2 [Moles/Vol] 18 mmol/L Low 22-30 [facility] Comment on above: Performed By: #### H EMOG, CMP3M, CRP2, LDH3, FIBGN, DDI2, APTT, FERR3 #### [facility] [address] [place] [address] Creatinine [Mass/Vol] 1.89 mg/dL High 0.52-1.25 [facility] Comment on above: Performed By: #### H EMOG, CMP3M, CRP2, LDH3, FIBGN, DDI2, APTT, FERR3 #### [facility] [address] [place] [address] GFR/1.73 sq M predicted among blacks MDRD (S/P/Bld) [Vol rate/Area] 44.5 mL/min/{1.73_m2} Abnormal >60 [facility] Comment on above: Performed By: #### H EMOG, CMP3M, CRP2, LDH3, FIBGN, DDI2, APTT, FERR3 #### [facility] [address] [place] [address] GFR/1.73 sq M predicted among non-blacks MDRD (S/P/Bld) [Vol rate/Area] 38.4 mL/min/{1.73_m2} Abnormal >60 [facility] Comment on above: Result Comment: KDIG [...] CRP2, LDH3, FIBGN, DDI2, APTT, FERR3 #### [facility] [address] [place] [address] Protein [Mass/Vol] 6.1 g/dL Low 6.3-8.2 [facility] Comment on above: Performed By: #### H EMOG, CMP3M, CRP2, LDH3, FIBGN, DDI2, APTT, FERR3 #### [facility] [address] [place] [address] Urea nitrogen [Mass/Vol] 35 mg/dL High 7-20 [facility] Comment on above: Performed By: #### H EMOG, CMP3M, CRP2, LDH3, FIBGN, DDI2, APTT, FERR3 #### [facility] [address] [place] [address] Potassium [Moles/Vol] 4.3 mmol/L Normal 3.5-5.1 [facility] Comment on above: Performed By: #### H EMOG, CMP3M, CRP2, LDH3, FIBGN, DDI2, APTT, FERR3 #### [facility] [address] [place] [address] Albumin [Mass/Vol] 3.3 g/dL Low 3.5-5.0 [facility] Comment on above: Performed By: #### H EMOG, CMP3M, CRP2, LDH3, FIBGN, DDI2, APTT, FERR3 #### [facility] [address] [place] [address] Chloride [Moles/Vol] 110 mmol/L High 98-107 [facility] Comment on above: Performed By: #### H EMOG, CMP3M, CRP2, LDH3, FIBGN, DDI2, APTT, FERR3 #### [facility] [address] [place] [address] Sodium [Moles/Vol] 137 mmol/L Normal 135-145 [facility] Comment on above: Performed By: #### H EMOG, CMP3M, CRP2, LDH3, FIBGN, DDI2, APTT, FERR3 #### [facility] [address] [place] [address] Comprehensive Metabolic Pane l w/ Reflex to MGon 11-02-2020 Albumin [Mass/Vol] 3.3 g/dL Low 3.5 - 5 g/dL [place] ALP [Catalytic activity/Vol] 85 U/L 38 - 126 U/L [place] ALT [Catalytic activity/Vol] 198 U/L High 0 - 49 U/L [place] Comment on above: The ALT test is perf ormed by an updated assay method. Please note that the reference intervals have been changed and are now sex specific. Anion gap [Moles/Vol] 9 mmol/L [place], [place] AST [Catalytic activity/Vol] 104 U/L High 15 - 46 U/L [place], [place] Bilirubin Ql (U) 0.7 mg/dL 0.2 - 1.3 mg/dL [place] Calcium [Mass/Vol] 8.8 mg/dL 8.4 - 10. 4 mg/dL [place], [place] Chloride [Moles/Vol] 110 mmol/L High 98 - 10 7 mmol/L [place] CO2 [Moles/Vol] 18 mmol/L Low 22 - 30 mmol/L [place] Creatinine [Mass/Vol] 1.89 mg/dL High 0.52 - 1.25 mg/dL [place] EGFR IF NonAfrican [place] 38.4 mL/min Abnormal >60 [place] Comment on above: KDIGO guidelines pro [...] (S/P/Bld) [Vol rate/Area] 44.5 mL/min/{1.73_m2} Abnormal >60 [facility], [place] Glucose [Mass/Vol] 135 mg/dL High 70 - 100 mg/dL [facility], [place] Potassium [Moles/Vol] 4.3 mmol/L 3.5 - 5.1 mmol/L [facility], [place] Protein [Mass/Vol] 6.1 g/dL Low 6.3 - 8.2 g/dL [facility], [place] Sodium [Moles/Vol] 137 mmol/L 135 - 145 mmol/L [facility], [place] Urea nitrogen [Mass/Vol] 35 mg/dL High 7 - 20 mg/dL [place] D-Dimer, Innovanceon 12-20-2 020 D-Dimer, Innovance 0.83 mg/L High 0.00-0.50 [facility] [email or web address] [facility] Comment on above: Result Comment: Inno quach D-Dimer values of <0.50 mg/L FEU can be used in combination with a pre-test probability model (e.g. Well's) to exclude pulmonary embolism (PE) disease, as well as an aid in the diagnosis of deep vein thrombosis (DVT). Performed By: #### H EMOG, CMP3M, CRP2, LDH3, FIBGN, DDI2, APTT, FERR3 #### [facility] [address] [place] [address] D-Dimer, Quantitativeon 12-2 0-2020 D-Dimer, Quant 0.83 mg/L High 0 - 0.5 mg/L [place], [place] Comment on above: [employer] D-Dimer va lues of <0.50 mg/L FEU can be used in combination with a pre-test probability model (e.g. Well's) to exclude pulmonary embolism (PE) disease, as well as an aid in the diagnosis of deep vein thrombosis (DVT). Interpretation and review of laboratory results Abnormal [place], [place] Ferritinon 11-02-2020 Ferritin [Mass/Vol] 938 ng/mL High 18-464 [facility] Comment on above: Performed By: #### H EMOG, CMP3M, CRP2, LDH3, FIBGN, DDI2, APTT, FERR3 #### [facility] [address] [place] [address] Ferritin [Mass/Vol] 938 ng/mL High 18 - 464 ng/mL [place], [place] Interpretation and review of laboratory results Abnormal [place] Test Performed by [facility], [address] [place] [address] [place] Fibrinogenon 11-02-2020 Fibrinogen 373 mg/dL Normal 200-400 [facility] Comment on above: Performed By: #### H EMOG, CMP3M, CRP2, LDH3, FIBGN, DDI2, APTT, FERR3 #### [facility] [address] [place] [address] Fibrinogen 373 mg/dL 200 - 400 mg/dL [place] Hemogramon 11-02-2020 Erythrocyte distribution width (RBC) [Ratio] 14.2 % Normal 11.5-14.5 [facility] Comment on above: Performed By: #### H EMOG, CMP3M, CRP2, LDH3, FIBGN, DDI2, APTT, FERR3 #### [facility] [address] [place] [address] Hematocrit (Bld) [Volume fraction] 39.5 % Low 40.0-52.0 [facility] Comment on above: Performed By: #### H EMOG, CMP3M, CRP2, LDH3, FIBGN, DDI2, APTT, FERR3 #### [facility] [address] [place] [address] Hemoglobin (Bld) [Mass/Vol] 13.2 g/dL Normal 13.0-18.0 [facility] Comment on above: Performed By: #### H EMOG, CMP3M, CRP2, LDH3, FIBGN, DDI2, APTT, FERR3 #### [facility] [address] [place] [address] MCH (RBC) [Entitic mass] 29.4 pg Normal 26.0-34.0 [facility] Comment on above: Performed By: #### H EMOG, CMP3M, CRP2, LDH3, FIBGN, DDI2, APTT, FERR3 #### [facility] [address] [place] [address] MCHC (RBC) [Mass/Vol] 33.5 % Normal 32.0-36.0 [facility] Comment on above: Performed By: #### H EMOG, CMP3M, CRP2, LDH3, FIBGN, DDI2, APTT, FERR3 #### [facility] [address] [place] [address] MCV (RBC) [Entitic vol] 87.8 fL Normal 80.0-98.0 [facility] Comment on above: Performed By: #### H EMOG, CMP3M, CRP2, LDH3, FIBGN, DDI2, APTT, FERR3 #### [facility] [address] [place] [address] Platelet mean volume (Bld) [Entitic vol] 7.6 fL Normal 7.4-10.4 [facility] Comment on above: Performed By: #### H EMOG, CMP3M, CRP2, LDH3, FIBGN, DDI2, APTT, FERR3 #### [facility] [address] [place] [address] Platelets (Bld) [#/Vol] 340 10*3/uL Normal 140-440 [facility] Comment on above: Performed By: #### H EMOG, CMP3M, CRP2, LDH3, FIBGN, DDI2, APTT, FERR3 #### [facility] [address] [place] [address] RBC (Bld) [#/Vol] 4.49 10*6/uL Normal 4.40-5.90 [facility] Comment on above: Performed By: #### H EMOG, CMP3M, CRP2, LDH3, FIBGN, DDI2, APTT, FERR3 #### [facility] [address] [place] [address] WBC (Bld) [#/Vol] 13.0 10*3/uL High 3.6-10.7 [facility] Comment on above: Performed By: #### H EMOG, CMP3M, CRP2, LDH3, FIBGN, DDI2, APTT, FERR3 #### [facility] [address] [place] [address] LDHon 11-02-2020 LDH 589 U/L High 120-246 [facility] Comment on above: Performed By: #### H EMOG, CMP3M, CRP2, LDH3, FIBGN, DDI2, APTT, FERR3 #### [facility] [address] [place] [address] Lactate Dehydrogenaseon - 0-2020 LD 589 U/L High 120 - 246 U/L [place], [place] Otheron 11-02-2020 Test Performed by [facility], [address] [place] [id number] [place] [address] Interpretation and review of laboratory results Abnormal [place], [place] Test Performed by [facility], [address] [place] [id number] [place] [address] C-Reactive Proteinon 020 CRP [Mass/Vol] 14.1 mg/L High 0.0-6.0 [facility] Comment on above: Result Comment: . Performed By: #### H EMOG, CMP3M, CRP2, LDH3, FIBGN, DDI2, APTT, FERR3 #### [facility] [address] [place] [address] CRP [Mass/Vol] 14.1 mg/L High 0 - 6 mg/L [place] Comment on above: . Interpretation and review of laboratory results Abnormal [place] Test Performed by [facility], [address] Comp Panel with Mg Reflexon 11-01-2020 ALT [Catalytic activity/Vol] 173 U/L High 0-49 [facility] Comment on above: Result Comment: The ALT test is performed by an updated assay method. Please note that the reference intervals have been changed and are now sex specific. Performed By: #### H EMOG, CMP3M, CRP2, LDH3, FIBGN, DDI2, APTT, FERR3 #### [facility] [address] [place] [address] Calcium [Mass/Vol] 8.7 mg/dL Normal 8.4-10.4 [facility] Comment on above: Performed By: #### H EMOG, CMP3M, CRP2, LDH3, FIBGN, DDI2, APTT, FERR3 #### [facility] [address] [place] [address] ALP [Catalytic activity/Vol] 77 U/L Normal 38-126 [facility] Comment on above: Performed By: #### H EMOG, CMP3M, CRP2, LDH3, FIBGN, DDI2, APTT, FERR3 #### [facility] [address] [place] [address] Anion gap [Moles/Vol] 7 Normal [facility] Comment on above: Performed By: #### H EMOG, CMP3M, CRP2, LDH3, FIBGN, DDI2, APTT, FERR3 #### [facility] [address] [place] [address] AST [Catalytic activity/Vol] 135 U/L High 15-46 [facility] Comment on above: Performed By: #### H EMOG, CMP3M, CRP2, LDH3, FIBGN, DDI2, APTT, FERR3 #### [facility] [address] [place] [address] Bilirubin [Mass/Vol] 0.5 mg/dL Normal 0.2-1.3 [facility] Comment on above: Performed By: #### H EMOG, CMP3M, CRP2, LDH3, FIBGN, DDI2, APTT, FERR3 #### [facility] [address] [place] [address] CO2 [Moles/Vol] 18 mmol/L Low 22-30 [facility] Comment on above: Performed By: #### H EMOG, CMP3M, CRP2, LDH3, FIBGN, DDI2, APTT, FERR3 #### [facility] [address] [place] [address] Creatinine [Mass/Vol] 1.77 mg/dL High 0.52-1.25 [facility] Comment on above: Performed By: #### H EMOG, CMP3M, CRP2, LDH3, FIBGN, DDI2, APTT, FERR3 #### [facility] [address] [place] [address] GFR/1.73 sq M predicted among blacks MDRD (S/P/Bld) [Vol rate/Area] 48.2 mL/min/{1.73_m2} Abnormal >60 [facility] Comment on above: Performed By: #### H EMOG, CMP3M, CRP2, LDH3, FIBGN, DDI2, APTT, FERR3 #### [facility] [address] [place] [address] GFR/1.73 sq M predicted among non-blacks MDRD (S/P/Bld) [Vol rate/Area] 41.6 mL/min/{1.73_m2} Abnormal >60 [facility] Comment on above: Result Comment: KDIG [...] CRP2, LDH3, FIBGN, DDI2, APTT, FERR3 #### [facility] [address] [place] [address] Glucose [Mass/Vol] 134 mg/dL High 70-100 [facility] Comment on above: Performed By: #### H EMOG, CMP3M, CRP2, LDH3, FIBGN, DDI2, APTT, FERR3 #### [facility] [address] [place] [address] Protein [Mass/Vol] 5.6 g/dL Low 6.3-8.2 [facility] Comment on above: Performed By: #### H EMOG, CMP3M, CRP2, LDH3, FIBGN, DDI2, APTT, FERR3 #### [facility] [address] [place] [address] Urea nitrogen [Mass/Vol] 32 mg/dL High 7-20 [facility] Comment on above: Performed By: #### H EMOG, CMP3M, CRP2, LDH3, FIBGN, DDI2, APTT, FERR3 #### [facility] [address] [place] [address] Potassium [Moles/Vol] 4.2 mmol/L Normal 3.5-5.1 [facility] Comment on above: Performed By: #### H EMOG, CMP3M, CRP2, LDH3, FIBGN, DDI2, APTT, FERR3 #### [facility] [address] [place] [address] Sodium [Moles/Vol] 137 mmol/L Normal 135-145 [facility] Comment on above: Performed By: #### H EMOG, CMP3M, CRP2, LDH3, FIBGN, DDI2, APTT, FERR3 #### [facility] [address] [place] [address] Albumin [Mass/Vol] 3.1 g/dL Low 3.5-5.0 [facility] Comment on above: Performed By: #### H EMOG, CMP3M, CRP2, LDH3, FIBGN, DDI2, APTT, FERR3 #### [facility] [address] [place] [address] Chloride [Moles/Vol] 113 mmol/L High 98-107 [facility] Comment on above: Performed By: #### H EMOG, CMP3M, CRP2, LDH3, FIBGN, DDI2, APTT, FERR3 #### [facility] [address] [place] [address] Comprehensive Metabolic Pane l w/ Reflex to MGon 11-01-2020 Albumin [Mass/Vol] 3.1 g/dL Low 3.5 - 5 g/dL [place] ALP [Catalytic activity/Vol] 77 U/L 38 - 126 U/L [place] ALT [Catalytic activity/Vol] 173 U/L High 0 - 49 U/L [place] Comment on above: The ALT test is perf ormed by an updated assay method. Please note that the reference intervals have been changed and are now sex specific. Anion gap [Moles/Vol] 7 mmol/L [place], [place] AST [Catalytic activity/Vol] 135 U/L High 15 - 46 U/L [place] Bilirubin Ql (U) 0.5 mg/dL 0.2 - 1.3 mg/dL [place] Calcium [Mass/Vol] 8.7 mg/dL 8.4 - 10. 4 mg/dL [place] Chloride [Moles/Vol] 113 mmol/L High 98 - 10 7 mmol/L [place] CO2 [Moles/Vol] 18 mmol/L Low 22 - 30 mmol/L [place] Creatinine [Mass/Vol] 1.77 mg/dL High 0.52 - 1.25 mg/dL [place] EGFR IF NonAfrican [place] 41.6 mL/min Abnormal >60 [place] Comment on above: KDIGO guidelines pro [...] (S/P/Bld) [Vol rate/Area] 48.2 mL/min/{1.73_m2} Abnormal >60 [facility], [place] Glucose [Mass/Vol] 134 mg/dL High 70 - 100 mg/dL [facility] Potassium [Moles/Vol] 4.2 mmol/L 3.5 - 5.1 mmol/L [facility], [place] Protein [Mass/Vol] 5.6 g/dL Low 6.3 - 8.2 g/dL [place] Sodium [Moles/Vol] 137 mmol/L 135 - 145 mmol/L [facility], [place] Urea nitrogen [Mass/Vol] 32 mg/dL High 7 - 20 mg/dL [place], [place] D-Dimer, Innovanceon 020 D-Dimer, [employer] 0.87 mg/L High 0.00-0.50 [facility] Comment on above: Result Comment: Inno quach D-Dimer values of <0.50 mg/L FEU can be used in combination with a pre-test probability model (e.g. Well's) to exclude pulmonary embolism (PE) disease, as well as an aid in the diagnosis of deep vein thrombosis (DVT). Performed By: #### H EMOG, CMP3M, CRP2, LDH3, FIBGN, DDI2, APTT, FERR3 #### [facility] [email or web address] [facility] [address] [place] [address] D-Dimer, Quantitativeon 10-14 D-Dimer, Quant 0.87 mg/L High 0 - 0.5 mg/L [place] Comment on above: [employer] D-Dimer va lues of <0.50 mg/L FEU can be used in combination with a pre-test probability model (e.g. Well's) to exclude pulmonary embolism (PE) disease, as well as an aid in the diagnosis of deep vein thrombosis (DVT). 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[place] : 1965 Requested By: FARRUKH DIAZ Order Number: [id number] Reading MD: Usama Cedillo Measurements Intervals [place] Rate: 83 P: 21 ID: [id number] QRS: -16 QRSD: 104 T: 28 QT: 404 QTc: 475 Interpretive Statements SINUS RHYTHM MULTIPLE VENTRICULAR PREMATURE COMPLEXES Electronically Signed On 11-01-2020 23:01:06 EST by [facility] Test Date: 2020-10-31 Pat Name: Reggie León Department: 09 Room: 468 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 [address] Ferritin [Mass/Vol] 1020 ng/mL High 18 - 464 ng/mL [place], [place] Interpretation and review of laboratory results Abnormal [place] Test Performed by [facility], [address], [place], [place] [address] [place] Fibrinogenon 11-01-2020 Fibrinogen 420 mg/dL High 200-400 [facility] Comment on above: Performed By: #### H EMOG, CMP3M, CRP2, LDH3, FIBGN, DDI2, APTT, FERR3 #### [facility] [address] [place] [address] Fibrinogen 420 mg/dL High 200 - 400 mg/dL [place] LDHon 11-01-2020 LDH 665 U/L High 120-246 [facility] Comment on above: Performed By: #### H EMOG, CMP3M, CRP2, LDH3, FIBGN, DDI2, APTT, FERR3 #### [facility] [address] [place] [address] Lactate Dehydrogenaseon 10-14 LD 665 U/L High 120 - 246 U/L [place] Otheron 11-01-2020 Interpretation and review of laboratory results Abnormal [place] Test Performed by [facility], [address] [place] [address] [place] Interpretation and review of laboratory results Abnormal [place] Test Performed by [facility], [address] [place] [address] [place] C-Reactive Proteinon 020 CRP [Mass/Vol] 19.2 mg/L High 0.0-6.0 [facility] Comment on above: Result Comment: . Performed By: #### H EMOG, CMP3M, CRP2, LDH3, FIBGN, DDI2, APTT, FERR3 #### [facility] [address] [place] [address] CRP [Mass/Vol] 19.2 mg/L High 0 - 6 mg/L [place] Comment on above: . CBCon 10-31-2020 Erythrocyte distribution width (RBC) [Ratio] 14.0 % 11.5 - 14.5 % [place] Hematocrit (Bld) [Volume fraction] 35.7 % Low 40 - 52 % [place] Hemoglobin (Bld) [Mass/Vol] 12.0 g/dL Low 13 - 18 g/dL [place] Interpretation and review of laboratory results Abnormal [place] MCH (RBC) [Entitic mass] 29.0 pg 26 - 34 pg [place] MCHC (RBC) [Mass/Vol] 33.7 % 32 - 36 % [place] MCV (RBC) [Entitic vol] 86.3 fL 80 - 98 fL [place] Platelet mean volume (Bld) [Entitic vol] 7.5 fL 7.4 - 10.4 fL [place], [place] Platelets (Bld) [#/Vol] 294 10*3/uL 140 - 440 10*3/uL [place] RBC (Bld) [#/Vol] 4.14 10*6/uL Low 4.4 - 5.9 10*6/uL [place] WBC (Bld) [#/Vol] 9.5 10*3/uL 3.6 - 10.7 10*3/uL [place] Test Performed by [facility], [address] [place], [place] [address] [place] Comp Panel with Mg Reflexon 10-31-2020 ALT [Catalytic activity/Vol] 79 U/L High 0-49 [facility] Comment on above: Result Comment: The ALT test is performed by an updated assay method. Please note that the reference intervals have been changed and are now sex specific. Performed By: #### H EMOG, CMP3M, CRP2, LDH3, FIBGN, DDI2, APTT, FERR3 #### [facility] [address] [place] [address] Calcium [Mass/Vol] 8.7 mg/dL Normal 8.4-10.4 [facility] Comment on above: Performed By: #### H EMOG, CMP3M, CRP2, LDH3, FIBGN, DDI2, APTT, FERR3 #### [facility] [address] [place] [address] Glucose [Mass/Vol] 139 mg/dL High 70-100 [facility] Comment on above: Performed By: #### H EMOG, CMP3M, CRP2, LDH3, FIBGN, DDI2, APTT, FERR3 #### [facility] [address] [place] [address] Urea nitrogen [Mass/Vol] 30 mg/dL High 7-20 [facility] Comment on above: Performed By: #### H EMOG, CMP3M, CRP2, LDH3, FIBGN, DDI2, APTT, FERR3 #### [facility] [address] [place] [address] ALP [Catalytic activity/Vol] 69 U/L Normal 38-126 [facility] Comment on above: Performed By: #### H EMOG, CMP3M, CRP2, LDH3, FIBGN, DDI2, APTT, FERR3 #### [facility] [address] [place] [address] Anion gap [Moles/Vol] 7 Normal [facility] Comment on above: Performed By: #### H EMOG, CMP3M, CRP2, LDH3, FIBGN, DDI2, APTT, FERR3 #### [facility] [address] [place] [address] AST [Catalytic activity/Vol] 67 U/L High 15-46 [facility] Comment on above: Performed By: #### H EMOG, CMP3M, CRP2, LDH3, FIBGN, DDI2, APTT, FERR3 #### [facility] [address] [place] [address] Bilirubin [Mass/Vol] 0.4 mg/dL Normal 0.2-1.3 [facility] Comment on above: Performed By: #### H EMOG, CMP3M, CRP2, LDH3, FIBGN, DDI2, APTT, FERR3 #### [facility] [address] [place] [address] CO2 [Moles/Vol] 17 mmol/L Low 22-30 [facility] Comment on above: Performed By: #### H EMOG, CMP3M, CRP2, LDH3, FIBGN, DDI2, APTT, FERR3 #### [facility] [address] [place] [address] Creatinine [Mass/Vol] 1.84 mg/dL High 0.52-1.25 [facility] Comment on above: Performed By: #### H EMOG, CMP3M, CRP2, LDH3, FIBGN, DDI2, APTT, FERR3 #### [facility] [address] [place] [address] GFR/1.73 sq M predicted among blacks MDRD (S/P/Bld) [Vol rate/Area] 46.0 mL/min/{1.73_m2} Abnormal >60 [facility] Comment on above: Performed By: #### H EMOG, CMP3M, CRP2, LDH3, FIBGN, DDI2, APTT, FERR3 #### [facility] [address] [place] [address] GFR/1.73 sq M predicted among non-blacks MDRD (S/P/Bld) [Vol rate/Area] 39.7 mL/min/{1.73_m2} Abnormal >60 [facility] Comment on above: Result Comment: KDIG [...] CRP2, LDH3, FIBGN, DDI2, APTT, FERR3 #### [facility] [address] [place] [address] Protein [Mass/Vol] 5.3 g/dL Low 6.3-8.2 [facility] Comment on above: Performed By: #### H EMOG, CMP3M, CRP2, LDH3, FIBGN, DDI2, APTT, FERR3 #### [facility] [address] [place] [address] Albumin [Mass/Vol] 2.8 g/dL Low 3.5-5.0 [facility] Comment on above: Performed By: #### H EMOG, CMP3M, CRP2, LDH3, FIBGN, DDI2, APTT, FERR3 #### [facility] [address] [place] [address] Chloride [Moles/Vol] 112 mmol/L High 98-107 [facility] Comment on above: Performed By: #### H EMOG, CMP3M, CRP2, LDH3, FIBGN, DDI2, APTT, FERR3 #### [facility] [address] [place] [address] Sodium [Moles/Vol] 136 mmol/L Normal 135-145 [facility] Comment on above: Performed By: #### H EMOG, CMP3M, CRP2, LDH3, FIBGN, DDI2, APTT, FERR3 #### [facility] [address] [place] [address] Potassium [Moles/Vol] 3.8 mmol/L Normal 3.5-5.1 [place] Comment on above: Performed By: #### H EMOG, CMP3M, CRP2, LDH3, FIBGN, DDI2, APTT, FERR3 #### [facility] [address] [place] [address] Comprehensive Metabolic Pane l w/ Reflex to MGon 10-31-2020 Albumin [Mass/Vol] 2.8 g/dL Low 3.5 - 5 g/dL [place] ALP [Catalytic activity/Vol] 69 U/L 38 - 126 U/L [place] ALT [Catalytic activity/Vol] 79 U/L High 0 - 49 U/L [place] Comment on above: The ALT test is perf ormed by an updated assay method. Please note that the reference intervals have been changed and are now sex specific. Anion gap [Moles/Vol] 7 mmol/L [place] AST [Catalytic activity/Vol] 67 U/L High 15 - 46 U/L [place] Bilirubin Ql (U) 0.4 mg/dL 0.2 - 1.3 mg/dL [place] Calcium [Mass/Vol] 8.7 mg/dL 8.4 - 10. 4 mg/dL [place] Chloride [Moles/Vol] 112 mmol/L High 98 - 10 7 mmol/L [place] CO2 [Moles/Vol] 17 mmol/L Low 22 - 30 mmol/L [place] Creatinine [Mass/Vol] 1.84 mg/dL High 0.52 - 1.25 mg/dL [place] EGFR IF NonAfrican [place] 39.7 mL/min Abnormal >60 [place] Comment on above: KDIGO guidelines pro [...] (S/P/Bld) [Vol rate/Area] 46.0 mL/min/{1.73_m2} Abnormal >60 [place], [place] Glucose [Mass/Vol] 139 mg/dL High 70 - 100 mg/dL [place] Protein [Mass/Vol] 5.3 g/dL Low 6.3 - 8.2 g/dL [place], [place] Sodium [Moles/Vol] 136 mmol/L 135 - 145 mmol/L [place] Urea nitrogen [Mass/Vol] 30 mg/dL High 7 - 20 mg/dL [place] D-Dimer, [employer] 12-18-2 020 D-Dimer, [employer] 0.96 mg/L High 0.00-0.50 [facility] Comment on above: Result Comment: Inno quach D-Dimer values of <0.50 mg/L FEU can be used in combination with a pre-test probability model (e.g. Well's) to exclude pulmonary embolism (PE) disease, as well as an aid in the diagnosis of deep vein thrombosis (DVT). Performed By: #### H EMOG, CMP3M, CRP2, LDH3, FIBGN, DDI2, APTT, FERR3 #### [facility] [address] [place] [address] D-Dimer, Quantitativeon 10-14 D-Dimer, Quant 0.96 mg/L High 0 - 0.5 mg/L [place] Comment on above: [employer] D-Dimer va lues of <0.50 mg/L FEU can be used in combination with a pre-test probability model (e.g. Well's) to exclude pulmonary embolism (PE) disease, as well as an aid in the diagnosis of deep vein thrombosis (DVT). Ferritinon 10-31-2020 Ferritin [Mass/Vol] 810 ng/mL High 18-464 [facility] Comment on above: Performed By: #### H EMOG, CMP3M, CRP2, LDH3, FIBGN, DDI2, APTT, FERR3 #### [facility] [address] [place] [address] Ferritin [Mass/Vol] 810 ng/mL High 18 - 464 ng/mL [place] Interpretation and review of laboratory results Abnormal [place] Test Performed by [facility], [address] [place] [address] [place] Fibrinogenon 10-31-2020 Fibrinogen 455 mg/dL High 200-400 [facility] Comment on above: Performed By: #### H EMOG, CMP3M, CRP2, LDH3, FIBGN, DDI2, APTT, FERR3 #### [facility] [address] [place] [address] Fibrinogen 455 mg/dL High 200 - 400 mg/dL [place] Hemogramon 10-31-2020 Erythrocyte distribution width (RBC) [Ratio] 14.0 % Normal 11.5-14.5 [facility] Comment on above: Performed By: #### H EMOG, CMP3M, CRP2, LDH3, FIBGN, DDI2, APTT, FERR3 #### [facility] [address] [place] [address] Hematocrit (Bld) [Volume fraction] 35.7 % Low 40.0-52.0 [facility] Comment on above: Performed By: #### H EMOG, CMP3M, CRP2, LDH3, FIBGN, DDI2, APTT, FERR3 #### [facility] [address] [place] [address] Hemoglobin (Bld) [Mass/Vol] 12.0 g/dL Low 13.0-18.0 [facility] Comment on above: Performed By: #### H EMOG, CMP3M, CRP2, LDH3, FIBGN, DDI2, APTT, FERR3 #### [facility] [address] [place] [address] MCH (RBC) [Entitic mass] 29.0 pg Normal 26.0-34.0 [facility] Comment on above: Performed By: #### H EMOG, CMP3M, CRP2, LDH3, FIBGN, DDI2, APTT, FERR3 #### [place] [address] [place] [address] MCHC (RBC) [Mass/Vol] 33.7 % Normal 32.0-36.0 [facility] Comment on above: Performed By: #### H EMOG, CMP3M, CRP2, LDH3, FIBGN, DDI2, APTT, FERR3 #### [place] [address] [place] [address] MCV (RBC) [Entitic vol] 86.3 fL Normal 80.0-98.0 [facility] Comment on above: Performed By: #### H EMOG, CMP3M, CRP2, LDH3, FIBGN, DDI2, APTT, FERR3 #### [facility] [address] [place] [address] Platelet mean volume (Bld) [Entitic vol] 7.5 fL Normal 7.4-10.4 [facility] Comment on above: Performed By: #### H EMOG, CMP3M, CRP2, LDH3, FIBGN, DDI2, APTT, FERR3 #### [facility] [address] [place] [address] Platelets (Bld) [#/Vol] 294 10*3/uL Normal 140-440 [facility] Comment on above: Performed By: #### H EMOG, CMP3M, CRP2, LDH3, FIBGN, DDI2, APTT, FERR3 #### [facility] [address] [place] [address] RBC (Bld) [#/Vol] 4.14 10*6/uL Low 4.40-5.90 [facility] Comment on above: Performed By: #### H EMOG, CMP3M, CRP2, LDH3, FIBGN, DDI2, APTT, FERR3 #### [facility] [address] [place] [address] WBC (Bld) [#/Vol] 9.5 10*3/uL Normal 3.6-10.7 [facility] Comment on above: Performed By: #### H EMOG, CMP3M, CRP2, LDH3, FIBGN, DDI2, APTT, FERR3 #### [facility] [address] [place] [address] LDHon 10-31-2020 LDH 572 U/L High 120-246 [facility] Comment on above: Performed By: #### H EMOG, CMP3M, CRP2, LDH3, FIBGN, DDI2, APTT, FERR3 #### [facility] [address] [place] [address] Lactate Dehydrogenaseon 10-14 LD 572 U/L High 120 - 246 U/L [facility] [employer] Otheron 10-31-2020 Interpretation and review of laboratory results Abnormal [facility] [employer] Test Performed by [facility], [address] [place] [address] [facility] [employer] Interpretation and review of laboratory results Abnormal [facility] [employer], [place] Test Performed by [facility], [address] [place] [address] [facility] [employer] APTTon 10-30-2020 aPTT Coag (Bld) [Time] 47.0 s High 20.0-30.5 [facility] Comment on above: Result Comment: NOTE : The therapeutic time for Heparin anticoagulation, based on Xa activity inhibition, is an APTT of 46-80 seconds. Performed By: #### H EMOG, CMP3M, CRP2, LDH3, FIBGN, DDI2, APTT, FERR3 #### [facility] [address] [place] [address] aPTT Coag (Bld) [Time] 47 s High 20 - 30.5 s [place], [place] Comment on above: NOTE: The therapeuti c time for Heparin anticoagulation, based on Xa activity inhibition, is an APTT of 46-80 seconds. C-Reactive Proteinon 020 CRP [Mass/Vol] 27.5 mg/L High 0.0-6.0 [facility] Comment on above: Result Comment: . Performed By: #### H EMOG, CMP3M, CRP2, LDH3, FIBGN, DDI2, APTT, FERR3 #### [facility] [address] [place] [address] CRP [Mass/Vol] 27.5 mg/L High 0 - 6 mg/L [place], [place] Comment on above: . Comp Panel with Mg Reflexon 10-30-2020 ALT [Catalytic activity/Vol] 67 U/L High 0-49 [facility] Comment on above: Result Comment: The ALT test is performed by an updated assay method. Please note that the reference intervals have been changed and are now sex specific. Performed By: #### H EMOG, CMP3M, CRP2, LDH3, FIBGN, DDI2, APTT, FERR3 #### [facility] [address] [place] [place] [address] Calcium [Mass/Vol] 8.6 mg/dL Normal 8.4-10.4 [facility] Comment on above: Performed By: #### H EMOG, CMP3M, CRP2, LDH3, FIBGN, DDI2, APTT, FERR3 #### [facility] [address] [place] [address] Glucose [Mass/Vol] 142 mg/dL High 70-100 [facility] Comment on above: Performed By: #### H EMOG, CMP3M, CRP2, LDH3, FIBGN, DDI2, APTT, FERR3 #### [facility] [address] [place] [address] Urea nitrogen [Mass/Vol] 30 mg/dL High 7-20 [facility] Comment on above: Performed By: #### H EMOG, CMP3M, CRP2, LDH3, FIBGN, DDI2, APTT, FERR3 #### [facility] [address] [place] [address] ALP [Catalytic activity/Vol] 75 U/L Normal 38-126 [facility] Comment on above: Performed By: #### H EMOG, CMP3M, CRP2, LDH3, FIBGN, DDI2, APTT, FERR3 #### [facility] [address] [place] [address] Anion gap [Moles/Vol] 8 Normal [facility] Comment on above: Performed By: #### H EMOG, CMP3M, CRP2, LDH3, FIBGN, DDI2, APTT, FERR3 #### [facility] [address] [place] [address] AST [Catalytic activity/Vol] 67 U/L High 15-46 [facility] Comment on above: Performed By: #### H EMOG, CMP3M, CRP2, LDH3, FIBGN, DDI2, APTT, FERR3 #### [facility] [address] [place] [address] Bilirubin [Mass/Vol] 0.3 mg/dL Normal 0.2-1.3 [facility] Comment on above: Performed By: #### H EMOG, CMP3M, CRP2, LDH3, FIBGN, DDI2, APTT, FERR3 #### [facility] [address] [place] [address] CO2 [Moles/Vol] 18 mmol/L Low 22-30 [facility] Comment on above: Performed By: #### H EMOG, CMP3M, CRP2, LDH3, FIBGN, DDI2, APTT, FERR3 #### [facility] [address] [place] [address] Creatinine [Mass/Vol] 2.01 mg/dL High 0.52-1.25 [facility] Comment on above: Performed By: #### H EMOG, CMP3M, CRP2, LDH3, FIBGN, DDI2, APTT, FERR3 #### [facility] [address] [place] [address] GFR/1.73 sq M predicted among blacks MDRD (S/P/Bld) [Vol rate/Area] 41.3 mL/min/{1.73_m2} Abnormal >60 [facility] Comment on above: Performed By: #### H EMOG, CMP3M, CRP2, LDH3, FIBGN, DDI2, APTT, FERR3 #### [facility] [address] [place] [address] GFR/1.73 sq M predicted among non-blacks MDRD (S/P/Bld) [Vol rate/Area] 35.6 mL/min/{1.73_m2} Abnormal >60 [facility] Comment on above: Result Comment: KDIG [...] CRP2, LDH3, FIBGN, DDI2, APTT, FERR3 #### [facility] [address] [place] [address] Protein [Mass/Vol] 5.7 g/dL Low 6.3-8.2 [facility] Comment on above: Performed By: #### H EMOG, CMP3M, CRP2, LDH3, FIBGN, DDI2, APTT, FERR3 #### [facility] [address] [place] [address] Potassium [Moles/Vol] 4.0 mmol/L Normal 3.5-5.1 [facility] Comment on above: Performed By: #### H EMOG, CMP3M, CRP2, LDH3, FIBGN, DDI2, APTT, FERR3 #### [facility] [address] [place] [address] Albumin [Mass/Vol] 2.9 g/dL Low 3.5-5.0 [facility] Comment on above: Performed By: #### H EMOG, CMP3M, CRP2, LDH3, FIBGN, DDI2, APTT, FERR3 #### [facility] [address] [place] [address] Chloride [Moles/Vol] 114 mmol/L High 98-107 [facility] Comment on above: Performed By: #### H EMOG, CMP3M, CRP2, LDH3, FIBGN, DDI2, APTT, FERR3 #### [facility] [address] [place] [address] Sodium [Moles/Vol] 140 mmol/L Normal 135-145 [facility] Comment on above: Performed By: #### H EMOG, CMP3M, CRP2, LDH3, FIBGN, DDI2, APTT, FERR3 #### [facility] [address] [place] [address] Comprehensive Metabolic Pane l w/ Reflex to MGon 10-30-2020 Albumin [Mass/Vol] 2.9 g/dL Low 3.5 - 5 g/dL [place], [place] ALP [Catalytic activity/Vol] 75 U/L 38 - 126 U/L [place] ALT [Catalytic activity/Vol] 67 U/L High 0 - 49 U/L [place] Comment on above: The ALT test is perf ormed by an updated assay method. Please note that the reference intervals have been changed and are now sex specific. Anion gap [Moles/Vol] 8 mmol/L [place], [place] AST [Catalytic activity/Vol] 67 U/L High 15 - 46 U/L [place] Bilirubin Ql (U) 0.3 mg/dL 0.2 - 1.3 mg/dL [place] Calcium [Mass/Vol] 8.6 mg/dL 8.4 - 10. 4 mg/dL [place] Chloride [Moles/Vol] 114 mmol/L High 98 - 10 7 mmol/L [place] CO2 [Moles/Vol] 18 mmol/L Low 22 - 30 mmol/L [place] Creatinine [Mass/Vol] 2.01 mg/dL High 0.52 - 1.25 mg/dL [place] EGFR IF NonAfrican [place] 35.6 mL/min Abnormal >60 [place] Comment on above: KDIGO guidelines pro [...] (S/P/Bld) [Vol rate/Area] 41.3 mL/min/{1.73_m2} Abnormal >60 [place] Glucose [Mass/Vol] 142 mg/dL High 70 - 100 mg/dL [place] Potassium [Moles/Vol] 4.0 mmol/L 3.5 - 5.1 mmol/L [place] Protein [Mass/Vol] 5.7 g/dL Low 6.3 - 8.2 g/dL [place] Sodium [Moles/Vol] 140 mmol/L 135 - 145 mmol/L [place] Urea nitrogen [Mass/Vol] 30 mg/dL High 7 - 20 mg/dL [place] D-Dimer, Innovanceon 020 D-Dimer, Innovance 0.89 mg/L High 0.00-0.50 [facility] Comment on above: Result Comment: Inno quach D-Dimer values of <0.50 mg/L FEU can be used in combination with a pre-test probability model (e.g. Well's) to exclude pulmonary embolism (PE) disease, as well as an aid in the diagnosis of deep vein thrombosis (DVT). Performed By: #### H EMOG, CMP3M, CRP2, LDH3, FIBGN, DDI2, APTT, FERR3 #### [facility] [address] [place] [address] D-Dimer, Quantitativeon 10-14 D-Dimer, Quant 0.89 mg/L High 0 - 0.5 mg/L [place] Comment on above: Innovance D-Dimer va lues of <0.50 mg/L FEU can be used in combination with a pre-test probability model (e.g. Well's) to exclude pulmonary embolism (PE) disease, as well as an aid in the diagnosis of deep vein thrombosis (DVT). Ferritinon 10-30-2020 Ferritin [Mass/Vol] 885 ng/mL High 18-464 [facility] Comment on above: Performed By: #### H EMOG, CMP3M, CRP2, LDH3, FIBGN, DDI2, APTT, FERR3 #### [facility] [address] [place] [address] Ferritin [Mass/Vol] 885 ng/mL High 18 - 464 ng/mL [place] Interpretation and review of laboratory results Abnormal [place] Test Performed by [facility], [address] [place], [place] [address] [place] Fibrinogenon 10-30-2020 Fibrinogen 456 mg/dL High 200-400 [facility] Comment on above: Performed By: #### H EMOG, CMP3M, CRP2, LDH3, FIBGN, DDI2, APTT, FERR3 #### [facility] [address] [place] [address] Fibrinogen 456 mg/dL High 200 - 400 mg/dL [place] LDHon 10-30-2020 LDH 613 U/L High 120-246 [facility] Comment on above: Performed By: #### H EMOG, CMP3M, CRP2, LDH3, FIBGN, DDI2, APTT, FERR3 #### [facility] [address] [place] [address] Lactate Dehydrogenaseon 10-14 LD 613 U/L High 120 - 246 U/L [place] Otheron 10-30-2020 Interpretation and review of laboratory results Abnormal [place] Test Performed by [facility], [address] [place], [place] [id number] [place] [address] Interpretation and review of laboratory results Abnormal [place] Test Performed by [facility], [address] [place], [place] [address] [place] APTTon 10-29-2020 aPTT Coag (Bld) [Time] 35.1 s High 20.0-30.5 [facility] Comment on above: Result Comment: NOTE : The therapeutic time for Heparin anticoagulation, based on Xa activity inhibition, is an APTT of 46-80 seconds. Performed By: #### H EMOG, CMP3M, CRP2, LDH3, FIBGN, DDI2, APTT, FERR3 #### [facility] [address] [place] [address] aPTT Coag (Bld) [Time] 35.1 s High 20 - 30.5 s [place] Comment on above: NOTE: The therapeuti c time for Heparin anticoagulation, based on Xa activity inhibition, is an APTT of 46-80 seconds. C-Reactive Proteinon 020 CRP [Mass/Vol] 34.9 mg/L High 0.0-6.0 [facility] Comment on above: Result Comment: . Performed By: #### H EMOG, CMP3M, CRP2, LDH3, FIBGN, DDI2, APTT, FERR3 #### [facility] [address] [place] [address] CRP [Mass/Vol] 34.9 mg/L High 0 - 6 mg/L [place] Comment on above: . CBCon 10-29-2020 Erythrocyte distribution width (RBC) [Ratio] 14.2 % 11.5 - 14.5 % [place] Hematocrit (Bld) [Volume fraction] 37.3 % Low 40 - 52 % [place] Hemoglobin (Bld) [Mass/Vol] 12.6 g/dL Low 13 - 18 g/dL [place] Interpretation and review of laboratory results Abnormal [place] MCH (RBC) [Entitic mass] 29.2 pg 26 - 34 pg [place] MCHC (RBC) [Mass/Vol] 33.7 % 32 - 36 % [place] MCV (RBC) [Entitic vol] 86.7 fL 80 - 98 fL [place], [place] Platelet mean volume (Bld) [Entitic vol] 7.6 fL 7.4 - 10.4 fL [place] Platelets (Bld) [#/Vol] 255 10*3/uL 140 - 440 10*3/uL [place] RBC (Bld) [#/Vol] 4.30 10*6/uL Low 4.4 - 5.9 10*6/uL [place] WBC (Bld) [#/Vol] 7.8 10*3/uL 3.6 - 10.7 10*3/uL [place] Test Performed by [facility], [address], [place], [place] [address] [place] CBC auto differentialon 10-14 Absolute Baso # 0.0 10*3/uL 0 - 0.2 10*3/uL [place] Absolute Neut # 3.5 10*3/uL 1.8 - 7 10*3/uL [place], [place] Basophils/100 WBC (Bld) 0.3 % 0 - 2 % [place] Eosinophils (Bld) [#/Vol] 0.0 10*3/uL 0 - 0.5 10*3/uL [place] Eosinophils/100 WBC (Bld) 0.0 % Low 1 - 6 % [place] Erythrocyte distribution width (RBC) [Ratio] 13.8 % 11.5 - 14.5 % [place] Granulocytes/100 WBC (Bld) 79.4 % 40 - 80 % [place] Hematocrit (Bld) [Volume fraction] 36.7 % Low 40 - 52 % [place] Hemoglobin (Bld) [Mass/Vol] 12.2 g/dL Low 13 - 18 g/dL [place] Interpretation and review of laboratory results Abnormal [place] Lymphocytes (Bld) [#/Vol] 0.4 10*3/uL Low 1 - 4.3 10*3/uL [place] Lymphocytes/100 WBC (Bld) 8.8 % Low 20 - 40 % [place] MCH (RBC) [Entitic mass] 29.1 pg 26 - 34 pg [place] MCHC (RBC) [Mass/Vol] 33.1 % 32 - 36 % [place] MCV (RBC) [Entitic vol] 87.8 fL 80 - 98 fL [place] Monocytes (Bld) [#/Vol] 0.5 10*3/uL 0 - 0.8 10*3/uL [place], [place] Monocytes/100 WBC (Bld) 11.5 % High 2 - 10 % [place] Platelet mean volume (Bld) [Entitic vol] 7.9 fL 7.4 - 10.4 fL [place] Platelets (Bld) [#/Vol] 231 10*3/uL 140 - 440 10*3/uL [place] RBC (Bld) [#/Vol] 4.19 10*6/uL Low 4.4 - 5.9 10*6/uL [place] WBC (Bld) [#/Vol] 4.4 10*3/uL 3.6 - 10.7 10*3/uL [place] Test Performed by [facility], [address], [place], [place] [id number] [place] [address], [place] COVID and Resp PCR Panelon 1 12-30-2019 COVID and Resp PCR Panel COVID and Resp PCR Panel --> Status: F NEGATIVE: No targets were detected by the CRISPR THERAPEUTICSe Upper Respiratory Pathogens PCR Panel. _ Expected Result: Not Detected The CRISPR THERAPEUTICSe Upper Respiratory Pathogens PCR Panel can detect [...] management decisions. This assay was developed by [employer] and distributed under an Emergency Use Authorization (EUA) granted by the FDA for the qualitative detection of SARS-CoV-2 nucleic acid. Provider and patient fact sheets can be found at https://www.fda.gov/media/ 743612/download and https://www.fda.gov/media/ 131988/download. Respiratory Pathogens PCR Panel. _ Expected Result: Not Detected The CRISPR THERAPEUTICSe Upper Respiratory Pathogens PCR Panel can detect [...] management decisions. This assay was developed by [employer] and distributed under an Emergency Use Authorization (EUA) granted by the FDA for the qualitative detection of SARS-CoV-2 nucleic acid. Provider and patient fact sheets can be found at https://www.fda.gov/media/ 208894/download and https://www.fda.gov/media/ 510273/download. Normal [facility] Comment on above: Performed By: #### H EMOG, CMP3M, CRP2, LDH3, FIBGN, DDI2, APTT, FERR3 #### [facility] [address] [place] [address] CTA CHEST W WO CONTRASTon Patient Name: REGGIE WILSON Computed Tomography ACCESSION EXAM DATE/TIME PROCEDURE ORDERING PROVIDER [id number] 10/29/2020 16:29 EST CTA Chest w/ + w/o MD EMILY, FARRUKH MCCORMICK Contrast CPT code 20148 Q9967 Reason For Exam (CTA Chest w/ + w/o Contrast) Hypoxia and elevated D-dimer, possible COVID+ and PE? Report Reasons for examination: Hypoxia, elevated d-dimer, Covid 19. CT scan of the chest were performed with bolus contrast and high resolution scans for CT pulmonary angiographic study, with images post-processed by myself on [employer] workstation, with 3D - volume rendered CT [...] WILLIAM Transcribed Date and Time: 10/29/2020 4:51 [facility], [place] Michel, [place] Incoming Radiology Results From [facility] - 10/29/2020 4:51 PM EST Patient Name: REGGIE LEÓN Computed Tomography ACCESSION EXAM DATE/TIME PROCEDURE ORDERING PROVIDER [id number] 10/29/2020 16:29 EST CTA Chest w/ + w/o MD EMILY, FARRUKH MCCORMICK Contrast CPT code 40657 Q9967 Reason For Exam (CTA Chest w/ + w/o Contrast) Hypoxia and elevated D-dimer, possible COVID+ and PE? Report Reasons for examination: Hypoxia, elevated d-dimer, Covid 19. CT scan of the chest were performed with bolus contrast and high resolution scans for CT pulmonary angiographic study, with images post-processed by myself on [employer] workstation, with 3D - volume rendered CT [...] WILLIAM Transcribed Date and Time: 10/29/2020 4:51 [facility], [place] CTA Chest w/ + w/o Contrasto n 10-29-2020 CTA Chest w/ + w/o Contrast Patient Name: REGGIE LEÓN Computed Tomography ACCESSION EXAM DATE/TIME PROCEDURE ORDERING PROVIDER [id number] 10/29/2020 16:29 EST CTA Chest w/ + w/o MD EMILY, FARRUKH MCCORMICK Contrast CPT code 30068 Q9967 Reason For Exam (CTA Chest w/ + w/o Contrast) Hypoxia and elevated D-dimer, possible COVID+ and PE? Report Reasons for examination: Hypoxia, elevated d-dimer, Covid 19. CT scan of the chest were performed with bolus contrast and high resolution scans for CT pulmonary angiographic study, with images post-processed by myself on [employer] workstation, with 3D - volume rendered CT [...] Transcribed Date and Time: 10/29/2020 4:51 Normal [facility] Comp Panel with Mg Reflexon 10-29-2020 ALP [Catalytic activity/Vol] 71 U/L Normal 38-126 [facility] Comment on above: Performed By: #### H EMOG, CMP3M, CRP2, LDH3, FIBGN, DDI2, APTT, FERR3 #### [facility] [address] [place] [address] ALT [Catalytic activity/Vol] 67 U/L High 0-49 [facility] Comment on above: Result Comment: The ALT test is performed by an updated assay method. Please note that the reference intervals have been changed and are now sex specific. Performed By: #### H EMOG, CMP3M, CRP2, LDH3, FIBGN, DDI2, APTT, FERR3 #### [facility] [address] [place] [address] Anion gap [Moles/Vol] 7 Normal [facility] Comment on above: Performed By: #### H EMOG, CMP3M, CRP2, LDH3, FIBGN, DDI2, APTT, FERR3 #### [facility] [address] [place] [address] AST [Catalytic activity/Vol] 88 U/L High 15-46 [facility] Comment on above: Performed By: #### H EMOG, CMP3M, CRP2, LDH3, FIBGN, DDI2, APTT, FERR3 #### [facility] [address] [place] [address] Bilirubin [Mass/Vol] 0.6 mg/dL Normal 0.2-1.3 [facility] Comment on above: Performed By: #### H EMOG, CMP3M, CRP2, LDH3, FIBGN, DDI2, APTT, FERR3 #### [facility] [address] [place] [address] Calcium [Mass/Vol] 8.9 mg/dL Normal 8.4-10.4 [facility] Comment on above: Performed By: #### H EMOG, CMP3M, CRP2, LDH3, FIBGN, DDI2, APTT, FERR3 #### [facility] [address] [place] [address] CO2 [Moles/Vol] 18 mmol/L Low 22-30 [facility] Comment on above: Performed By: #### H EMOG, CMP3M, CRP2, LDH3, FIBGN, DDI2, APTT, FERR3 #### [facility] [address] [place] [address] Creatinine [Mass/Vol] 2.24 mg/dL High 0.52-1.25 [facility] Comment on above: Performed By: #### H EMOG, CMP3M, CRP2, LDH3, FIBGN, DDI2, APTT, FERR3 #### [facility] [address] [place] [address] GFR/1.73 sq M predicted among blacks MDRD (S/P/Bld) [Vol rate/Area] 36.2 mL/min/{1.73_m2} Abnormal >60 [facility] Comment on above: Performed By: #### H EMOG, CMP3M, CRP2, LDH3, FIBGN, DDI2, APTT, FERR3 #### [facility] [email or web address] [facility] [address] [place] [address] GFR/1.73 sq M predicted among non-blacks MDRD (S/P/Bld) [Vol rate/Area] 31.3 mL/min/{1.73_m2} Abnormal >60 [facility] Comment on above: Result Comment: KDIG [...] CRP2, LDH3, FIBGN, DDI2, APTT, FERR3 #### [facility] [email or web address] [facility] [address] [place] [address] Glucose [Mass/Vol] 132 mg/dL High 70-100 [facility] Comment on above: Performed By: #### H EMOG, CMP3M, CRP2, LDH3, FIBGN, DDI2, APTT, FERR3 #### [facility] [address] [place] [address] Protein [Mass/Vol] 6.0 g/dL Low 6.3-8.2 [facility] Comment on above: Performed By: #### H EMOG, CMP3M, CRP2, LDH3, FIBGN, DDI2, APTT, FERR3 #### [facility] [address] [place] [address] Urea nitrogen [Mass/Vol] 33 mg/dL High 7-20 [facility] Comment on above: Performed By: #### H EMOG, CMP3M, CRP2, LDH3, FIBGN, DDI2, APTT, FERR3 #### [facility] [address] [place] [address] Potassium [Moles/Vol] 3.9 mmol/L Normal 3.5-5.1 [facility] Comment on above: Performed By: #### H EMOG, CMP3M, CRP2, LDH3, FIBGN, DDI2, APTT, FERR3 #### [facility] [address] [place] [address] Albumin [Mass/Vol] 3.2 g/dL Low 3.5-5.0 [facility] Comment on above: Performed By: #### H EMOG, CMP3M, CRP2, LDH3, FIBGN, DDI2, APTT, FERR3 #### [facility] [address] [place] [address] Chloride [Moles/Vol] 112 mmol/L High 98-107 [facility] Comment on above: Performed By: #### H EMOG, CMP3M, CRP2, LDH3, FIBGN, DDI2, APTT, FERR3 #### [facility] [address] [place] [address] Sodium [Moles/Vol] 137 mmol/L Normal 135-145 [facility] Comment on above: Performed By: #### H EMOG, CMP3M, CRP2, LDH3, FIBGN, DDI2, APTT, FERR3 #### [facility] [address] [place] [address] ALP [Catalytic activity/Vol] 81 U/L Normal 38-126 [facility] Comment on above: Performed By: #### H EMOG, CMP3M, CRP2, LDH3, FIBGN, DDI2, APTT, FERR3 #### [facility] [address] [place] [address] ALT [Catalytic activity/Vol] 67 U/L High 0-49 [facility] Comment on above: Result Comment: The ALT test is performed by an updated assay method. Please note that the reference intervals have been changed and are now sex specific. Performed By: #### H EMOG, CMP3M, CRP2, LDH3, FIBGN, DDI2, APTT, FERR3 #### [facility] [address] [place] [address] Anion gap [Moles/Vol] 9 Normal [facility] Comment on above: Performed By: #### H EMOG, CMP3M, CRP2, LDH3, FIBGN, DDI2, APTT, FERR3 #### [facility] [address] [place] [address] AST [Catalytic activity/Vol] 86 U/L High 15-46 [facility] Comment on above: Performed By: #### H EMOG, CMP3M, CRP2, LDH3, FIBGN, DDI2, APTT, FERR3 #### [facility] [address] [place] [address] Calcium [Mass/Vol] 8.5 mg/dL Normal 8.4-10.4 [facility] Comment on above: Performed By: #### H EMOG, CMP3M, CRP2, LDH3, FIBGN, DDI2, APTT, FERR3 #### [facility] [address] [place] [address] CO2 [Moles/Vol] 17 mmol/L Low 22-30 [facility] Comment on above: Performed By: #### H EMOG, CMP3M, CRP2, LDH3, FIBGN, DDI2, APTT, FERR3 #### [facility] [address] [place] [address] Glucose [Mass/Vol] 139 mg/dL High 70-100 [facility] Comment on above: Performed By: #### H EMOG, CMP3M, CRP2, LDH3, FIBGN, DDI2, APTT, FERR3 #### [facility] [address] [place] [address] Protein [Mass/Vol] 5.8 g/dL Low 6.3-8.2 [facility] Comment on above: Performed By: #### H EMOG, CMP3M, CRP2, LDH3, FIBGN, DDI2, APTT, FERR3 #### [facility] [address] [place] [address] Urea nitrogen [Mass/Vol] 31 mg/dL High 7-20 [facility] Comment on above: Performed By: #### H EMOG, CMP3M, CRP2, LDH3, FIBGN, DDI2, APTT, FERR3 #### [facility] [address] [place] [address] Bilirubin [Mass/Vol] 0.5 mg/dL Normal 0.2-1.3 [facility] Comment on above: Performed By: #### H EMOG, CMP3M, CRP2, LDH3, FIBGN, DDI2, APTT, FERR3 #### [facility] [address] [place] [address] Creatinine [Mass/Vol] 2.37 mg/dL High 0.52-1.25 [facility] Comment on above: Performed By: #### H EMOG, CMP3M, CRP2, LDH3, FIBGN, DDI2, APTT, FERR3 #### [facility] [address] [place] [address] GFR/1.73 sq M predicted among blacks MDRD (S/P/Bld) [Vol rate/Area] 33.9 mL/min/{1.73_m2} Abnormal >60 [facility] Comment on above: Performed By: #### H EMOG, CMP3M, CRP2, LDH3, FIBGN, DDI2, APTT, FERR3 #### [facility] [address] [place] [address] GFR/1.73 sq M predicted among non-blacks MDRD (S/P/Bld) [Vol rate/Area] 29.2 mL/min/{1.73_m2} Abnormal >60 [facility] Comment on above: Result Comment: KDIG [...] CRP2, LDH3, FIBGN, DDI2, APTT, FERR3 #### [facility] [address] [place] [address] Potassium [Moles/Vol] 4.3 mmol/L Normal 3.5-5.1 [facility] Comment on above: Performed By: #### H EMOG, CMP3M, CRP2, LDH3, FIBGN, DDI2, APTT, FERR3 #### [facility] [address] [place] [address] Sodium [Moles/Vol] 136 mmol/L Normal 135-145 [facility] Comment on above: Performed By: #### H EMOG, CMP3M, CRP2, LDH3, FIBGN, DDI2, APTT, FERR3 #### [facility] [address] [place] [address] Albumin [Mass/Vol] 3.0 g/dL Low 3.5-5.0 [facility] Comment on above: Performed By: #### H EMOG, CMP3M, CRP2, LDH3, FIBGN, DDI2, APTT, FERR3 #### [facility] [address] [place] [address] Chloride [Moles/Vol] 110 mmol/L High 98-107 [facility] Comment on above: Performed By: #### H EMOG, CMP3M, CRP2, LDH3, FIBGN, DDI2, APTT, FERR3 #### [facility] [address] [place] [address] Comprehensive Metabolic Pane l w/ Reflex to MGon 10-29-2020 Albumin [Mass/Vol] 3.2 g/dL Low 3.5 - 5 g/dL [place], [place] ALP [Catalytic activity/Vol] 71 U/L 38 - 126 U/L [place] ALT [Catalytic activity/Vol] 67 U/L High 0 - 49 U/L [place] Comment on above: The ALT test is perf ormed by an updated assay method. Please note that the reference intervals have been changed and are now sex specific. Anion gap [Moles/Vol] 7 mmol/L [place], [place] AST [Catalytic activity/Vol] 88 U/L High 15 - 46 U/L [place], [place] Bilirubin Ql (U) 0.6 mg/dL 0.2 - 1.3 mg/dL [place] Calcium [Mass/Vol] 8.9 mg/dL 8.4 - 10. 4 mg/dL [place] Chloride [Moles/Vol] 112 mmol/L High 98 - 10 7 mmol/L [place] CO2 [Moles/Vol] 18 mmol/L Low 22 - 30 mmol/L [place] Creatinine [Mass/Vol] 2.24 mg/dL High 0.52 - 1.25 mg/dL [place] EGFR IF NonAfrican [place]ijani 31.3 mL/min Abnormal >60 [place] Comment on above: KDIGO guidelines pro [...] (S/P/Bld) [Vol rate/Area] 36.2 mL/min/{1.73_m2} Abnormal >60 [place] Glucose [Mass/Vol] 132 mg/dL High 70 - 100 mg/dL [place] Interpretation and review of laboratory results Abnormal [place] Potassium [Moles/Vol] 3.9 mmol/L 3.5 - 5.1 mmol/L [place] Protein [Mass/Vol] 6.0 g/dL Low 6.3 - 8.2 g/dL [place] Sodium [Moles/Vol] 137 mmol/L 135 - 145 mmol/L [place] Urea nitrogen [Mass/Vol] 33 mg/dL High 7 - 20 mg/dL [place] Test Performed by [facility], [address] [place], [place], [place] [address] [place] Albumin [Mass/Vol] 3.0 g/dL Low 3.5 - 5 g/dL [place] ALP [Catalytic activity/Vol] 81 U/L 38 - 126 U/L [place] ALT [Catalytic activity/Vol] 67 U/L High 0 - 49 U/L [place] Comment on above: The ALT test is perf ormed by an updated assay method. Please note that the reference intervals have been changed and are now sex specific. Anion gap [Moles/Vol] 9 mmol/L [place], [place] AST [Catalytic activity/Vol] 86 U/L High 15 - 46 U/L [place] Bilirubin Ql (U) 0.5 mg/dL 0.2 - 1.3 mg/dL [place] Calcium [Mass/Vol] 8.5 mg/dL 8.4 - 10. 4 mg/dL [place] Chloride [Moles/Vol] 110 mmol/L High 98 - 10 7 mmol/L [place] CO2 [Moles/Vol] 17 mmol/L Low 22 - 30 mmol/L [place] Creatinine [Mass/Vol] 2.37 mg/dL High 0.52 - 1.25 mg/dL [place] EGFR IF NonAfrican [place] 29.2 mL/min Abnormal >60 [place] Comment on above: KDIGO guidelines pro [...] (S/P/Bld) [Vol rate/Area] 33.9 mL/min/{1.73_m2} Abnormal >60 [place] Glucose [Mass/Vol] 139 mg/dL High 70 - 100 mg/dL [place] Potassium [Moles/Vol] 4.3 mmol/L 3.5 - 5.1 mmol/L [place] Protein [Mass/Vol] 5.8 g/dL Low 6.3 - 8.2 g/dL [place] Sodium [Moles/Vol] 136 mmol/L 135 - 145 mmol/L [place], [place] Urea nitrogen [Mass/Vol] 31 mg/dL High 7 - 20 mg/dL [place], [place] D-Dimer, Innovanceon 12-16-2 020 D-Dimer, Innovance 1.54 mg/L High 0.00-0.50 [facility] [email or web address] [facility] Comment on above: Result Comment: Inno quach D-Dimer values of <0.50 mg/L FEU can be used in combination with a pre-test probability model (e.g. Well's) to exclude pulmonary embolism (PE) disease, as well as an aid in the diagnosis of deep vein thrombosis (DVT). Performed By: #### H BIRGIT MUÑOZ3M, CRP2, LDH3, FIBGN, DDI2, APTT, FERR3 #### [facility] [address] [place] [address] D-Dimer, Innovance 1.23 mg/L High 0.00-0.50 [facility] Comment on above: Result Comment: Inno quach D-Dimer values of <0.50 mg/L FEU can be used in combination with a pre-test probability model (e.g. Well's) to exclude pulmonary embolism (PE) disease, as well as an aid in the diagnosis of deep vein thrombosis (DVT). Performed By: #### H EMOG, CMP3M, CRP2, LDH3, FIBGN, DDI2, APTT, FERR3 #### [facility] [address] [place] [address] D-Dimer, Quantitativeon 12- D-Dimer, Quant 1.54 mg/L High 0 - 0.5 mg/L [facility], [place] Comment on above: Innovance D-Dimer va lues of <0.50 mg/L FEU can be used in combination with a pre-test probability model (e.g. Well's) to exclude pulmonary embolism (PE) disease, as well as an aid in the diagnosis of deep vein thrombosis (DVT). D-Dimer, Quant 1.23 mg/L High 0 - 0.5 mg/L [facility], [place] Comment on above: Innovance D-Dimer va lues of <0.50 mg/L FEU can be used in combination with a pre-test probability model (e.g. Well's) to exclude pulmonary embolism (PE) disease, as well as an aid in the diagnosis of deep vein thrombosis (DVT). 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: PARESH : 1965 Requested By: ANDREW SILVER Order Number: [id number] Reading MD: Usama Cedillo Measurements Intervals [place] Rate: 85 P: 15 ID: [id number] QRS: -12 QRSD: 104 T: 73 QT: 408 QTc: 486 Interpretive Statements SINUS RHYTHM Electronically Signed On 10-29-2020 9:40:09 EST by Usama [facility] [email or web address] [facility] Test Date: 2020-10-28 Pat Name: Reggie León Department: 2AED Room: 468 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 Business Courses: PARESH : 1965 Requested By: ANDREW SILVER Order Number: [id number] Reading MD: Usama Cedillo Measurements Intervals [place] Rate: 85 P: 15 ID: [id number] QRS: -12 QRSD: 104 T: 73 QT: 408 QTc: 486 Interpretive Statements SINUS RHYTHM Electronically Signed On 10-29-2020 9:40:09 EST by Usama [place], [place] Ferritinon 10-29-2020 Ferritin [Mass/Vol] 714 ng/mL High 18-464 [facility] Comment on above: Performed By: #### H EMOG, CMP3M, CRP2, LDH3, FIBGN, DDI2, APTT, FERR3 #### [facility] [email or web address] [facility] [address] [place] [address] Ferritin [Mass/Vol] 714 ng/mL High 18 - 464 ng/mL [place], [place] Interpretation and review of laboratory results Abnormal [place] Test Performed by [facility], [address], [place], [place] [address] [place] Fibrinogenon 10-29-2020 Fibrinogen 534 mg/dL High 200-400 [facility] Comment on above: Performed By: #### H EMOG, CMP3M, CRP2, LDH3, FIBGN, DDI2, APTT, FERR3 #### [facility] [email or web address] [facility] [address] [place] [address] Fibrinogen 534 mg/dL High 200 - 400 mg/dL [place], [place] Fibrinogen 587 mg/dL High 200-400 [facility] Comment on above: Performed By: #### H EMOG, CMP3M, CRP2, LDH3, FIBGN, DDI2, APTT, FERR3 #### [facility] [address] [place] [address] Fibrinogen 587 mg/dL High 200 - 400 mg/dL [facility], [place] Hemogramon 10-29-2020 Erythrocyte distribution width (RBC) [Ratio] 14.2 % Normal 11.5-14.5 [facility] Comment on above: Performed By: #### H EMOG, CMP3M, CRP2, LDH3, FIBGN, DDI2, APTT, FERR3 #### [facility] [address] [place] [address] Hematocrit (Bld) [Volume fraction] 37.3 % Low 40.0-52.0 [facility] Comment on above: Performed By: #### H EMOG, CMP3M, CRP2, LDH3, FIBGN, DDI2, APTT, FERR3 #### [facility] [address] [place] [address] Hemoglobin (Bld) [Mass/Vol] 12.6 g/dL Low 13.0-18.0 [facility] Comment on above: Performed By: #### H EMOG, CMP3M, CRP2, LDH3, FIBGN, DDI2, APTT, FERR3 #### [facility] [address] [place] [address] MCH (RBC) [Entitic mass] 29.2 pg Normal 26.0-34.0 [facility] Comment on above: Performed By: #### H EMOG, CMP3M, CRP2, LDH3, FIBGN, DDI2, APTT, FERR3 #### [facility] [address] [place] [address] MCHC (RBC) [Mass/Vol] 33.7 % Normal 32.0-36.0 [facility] Comment on above: Performed By: #### H EMOG, CMP3M, CRP2, LDH3, FIBGN, DDI2, APTT, FERR3 #### [facility] [address] [place] [address] MCV (RBC) [Entitic vol] 86.7 fL Normal 80.0-98.0 [facility] Comment on above: Performed By: #### H EMOG, CMP3M, CRP2, LDH3, FIBGN, DDI2, APTT, FERR3 #### [facility] [address] [place] [address] Platelet mean volume (Bld) [Entitic vol] 7.6 fL Normal 7.4-10.4 [facility] Comment on above: Performed By: #### H EMOG, CMP3M, CRP2, LDH3, FIBGN, DDI2, APTT, FERR3 #### [facility] [address] [place] [address] Platelets (Bld) [#/Vol] 255 10*3/uL Normal 140-440 [facility] Comment on above: Performed By: #### H EMOG, CMP3M, CRP2, LDH3, FIBGN, DDI2, APTT, FERR3 #### [facility] [address] [place] [address] RBC (Bld) [#/Vol] 4.30 10*6/uL Low 4.40-5.90 [facility] Comment on above: Performed By: #### H EMOG, CMP3M, CRP2, LDH3, FIBGN, DDI2, APTT, FERR3 #### [facility] [address] [place] [address] WBC (Bld) [#/Vol] 7.8 10*3/uL Normal 3.6-10.7 [facility] Comment on above: Performed By: #### H EMOG, CMP3M, CRP2, LDH3, FIBGN, DDI2, APTT, FERR3 #### [facility] [address] [place] [address] Hemogram w/ Autodiffon 10-29 Abs Baso Cnt 0.0 10*3/uL Normal 0.0-0.2 [facility] Comment on above: Performed By: #### H EMOG, CMP3M, CRP2, LDH3, FIBGN, DDI2, APTT, FERR3 #### [facility] [address] [place] [address] Abs Neutrophile Cnt 3.5 10*3/uL Normal 1.8-7.0 [facility] Comment on above: Performed By: #### H EMOG, CMP3M, CRP2, LDH3, FIBGN, DDI2, APTT, FERR3 #### [facility] [address] [place] [address] Basophils/100 WBC (Bld) 0.3 % Normal 0.0-2.0 [facility] Comment on above: Performed By: #### H EMOG, CMP3M, CRP2, LDH3, FIBGN, DDI2, APTT, FERR3 #### [facility] [address] [place] [address] Eosinophils (Bld) [#/Vol] 0.0 10*3/uL Normal 0.0-0.5 [facility] Comment on above: Performed By: #### H EMOG, CMP3M, CRP2, LDH3, FIBGN, DDI2, APTT, FERR3 #### [facility] [address] [place] [address] Eosinophils/100 WBC (Bld) 0.0 % Low 1.0-6.0 [facility] Comment on above: Performed By: #### H EMOG, CMP3M, CRP2, LDH3, FIBGN, DDI2, APTT, FERR3 #### [facility] [address] [place] [address] Erythrocyte distribution width (RBC) [Ratio] 13.8 % Normal 11.5-14.5 [facility] Comment on above: Performed By: #### H EMOG, CMP3M, CRP2, LDH3, FIBGN, DDI2, APTT, FERR3 #### [facility] [address] [place] [address] Granulocytes/100 WBC (Bld) 79.4 % Normal 40.0-80.0 [facility] Comment on above: Performed By: #### H EMOG, CMP3M, CRP2, LDH3, FIBGN, DDI2, APTT, FERR3 #### [facility] [address] [place] [address] Hematocrit (Bld) [Volume fraction] 36.7 % Low 40.0-52.0 [facility] Comment on above: Performed By: #### H EMOG, CMP3M, CRP2, LDH3, FIBGN, DDI2, APTT, FERR3 #### [facility] [address] [place] [address] Hemoglobin (Bld) [Mass/Vol] 12.2 g/dL Low 13.0-18.0 [facility] Comment on above: Performed By: #### H EMOG, CMP3M, CRP2, LDH3, FIBGN, DDI2, APTT, FERR3 #### [facility] [address] [place] [address] Lymphocytes (Bld) [#/Vol] 0.4 10*3/uL Low 1.0-4.3 [facility] Comment on above: Performed By: #### H EMOG, CMP3M, CRP2, LDH3, FIBGN, DDI2, APTT, FERR3 #### [facility] [address] [place] [address] Lymphocytes/100 WBC (Bld) 8.8 % Low 20.0-40.0 [facility] Comment on above: Performed By: #### H EMOG, CMP3M, CRP2, LDH3, FIBGN, DDI2, APTT, FERR3 #### [facility] [address] [place] [address] MCH (RBC) [Entitic mass] 29.1 pg Normal 26.0-34.0 [facility] Comment on above: Performed By: #### H EMOG, CMP3M, CRP2, LDH3, FIBGN, DDI2, APTT, FERR3 #### [facility] [address] [place] [address] MCHC (RBC) [Mass/Vol] 33.1 % Normal 32.0-36.0 [facility] Comment on above: Performed By: #### H EMOG, CMP3M, CRP2, LDH3, FIBGN, DDI2, APTT, FERR3 #### [facility] [address] [place] [address] MCV (RBC) [Entitic vol] 87.8 fL Normal 80.0-98.0 [facility] Comment on above: Performed By: #### H EMOG, CMP3M, CRP2, LDH3, FIBGN, DDI2, APTT, FERR3 #### [facility] [address] [place] [address] Monocytes (Bld) [#/Vol] 0.5 10*3/uL Normal 0.0-0.8 [facility] Comment on above: Performed By: #### H EMOG, CMP3M, CRP2, LDH3, FIBGN, DDI2, APTT, FERR3 #### [facility] [address] [place] [address] Monocytes/100 WBC (Bld) 11.5 % High 2.0-10.0 [facility] Comment on above: Performed By: #### H EMOG, CMP3M, CRP2, LDH3, FIBGN, DDI2, APTT, FERR3 #### [facility] [address] [place] [address] Platelet mean volume (Bld) [Entitic vol] 7.9 fL Normal 7.4-10.4 [facility] Comment on above: Performed By: #### H EMOG, CMP3M, CRP2, LDH3, FIBGN, DDI2, APTT, FERR3 #### [facility] [address] [place] [address] Platelets (Bld) [#/Vol] 231 10*3/uL Normal 140-440 [facility] Comment on above: Performed By: #### H EMOG, CMP3M, CRP2, LDH3, FIBGN, DDI2, APTT, FERR3 #### [facility] [address] [place] [address] RBC (Bld) [#/Vol] 4.19 10*6/uL Low 4.40-5.90 [facility] Comment on above: Performed By: #### H EMOG, CMP3M, CRP2, LDH3, FIBGN, DDI2, APTT, FERR3 #### [facility] [address] [place] [address] WBC (Bld) [#/Vol] 4.4 10*3/uL Normal 3.6-10.7 [facility] Comment on above: Performed By: #### H EMOG, CMP3M, CRP2, LDH3, FIBGN, DDI2, APTT, FERR3 #### [facility] [address] [place] [address] LDHon 10-29-2020 LDH 676 U/L High 120-246 [facility] Comment on above: Performed By: #### H EMOG, CMP3M, CRP2, LDH3, FIBGN, DDI2, APTT, FERR3 #### [facility] [address] [place] [address] Lactate Dehydrogenaseon 10-14 LD 676 U/L High 120 - 246 U/L [facility], [place] Lithiumon 10-29-2020 [place] [Moles/Vol] 0.7 mmol/L Normal 0.6-1.2 [facility] Comment on above: Performed By: #### H EMOG, CMP3M, CRP2, LDH3, FIBGN, DDI2, APTT, FERR3 #### [facility] [email or web address] [facility] [address] [place] [address] [place] Levelon 10-29-2020 [place] Lvl 0.7 mmol/L 0.6 - 1.2 mmol/L [facility], [place] Otheron 10-29-2020 Interpretation and review of laboratory results Abnormal [facility] [place] [place] Test Performed by [facility], [address] [place], [place] [address] [place] [address], [place] Interpretation and review of laboratory results Abnormal [facility], [place] Test Performed by [facility], [address] [place], [place] [address] [place] [address], [place] Interpretation and review of laboratory results Abnormal [facility], [place] Test Performed by [facility], [address] [place], [place] [address] [facility], [place] Procalcitoninon 10-29-2020 Procalcitonin 0.31 ng/mL Abnormal <0.10 [facility] Comment on above: Performed By: #### H EMOG, CMP3M, CRP2, LDH3, FIBGN, DDI2, APTT, FERR3 #### [facility] [address] [place] [address] Interpretation and review of laboratory results Abnormal [place], [place] Procalcitonin 0.31 ng/mL Abnormal <0.10 [place] Sodium [Moles/Vol] See Below [place], [place] Comment on above: PCT <0.50 = Low risk of severe sepsis and/or septic shock. PCT >2.00 = High risk of severe sepsis and/or septic shock. Test Performed by [facility], [address] [place] [address] [place], [place] Vit D 25-OH, Totalon 020 Vit D 25-OH, Total 69 ng/mL Normal 30-100 [facility] Comment on above: Result Comment: Ther apy is based on measurement of Total 25-OHD with the following classification levels: Less than 20 ng/mL: Indicative of Vit D deficiency 20-30 ng/mL: Suggests Vit D insufficiency Optimal: Greater than or equal to 30 ng/mL Test performed by [employer] Competitive Immunoassay, measuring Total Vitamin D, not individual fractions. Performed By: #### H EMOG, CMP3M, CRP2, LDH3, FIBGN, DDI2, APTT, FERR3 #### [facility] [email or web address] [facility] [address] [place] [address] Vitamin D 25 Hydroxyon 10-29 Vit D, 25-Hydroxy 69 ng/mL 30 - 100 ng/mL [place], [place] Comment on above: Therapy is based on measurement of Total 25-OHD with the following classification levels: Less than 20 ng/mL: Indicative of Vit D deficiency 20-30 ng/mL: Suggests Vit D insufficiency Optimal: Greater than or equal to 30 ng/mL Test performed by [employer] Competitive Immunoassay, measuring Total Vitamin D, not individual fractions. Test Performed by [facility], [address], [place], [place] [address] [place], [place] Arterial Blood Gas Respirato sarah 10-28-2020 Base Excess -5.8 mmol/L Low -3.0-3.0 [facility] Comment on above: Performed By: #### A BGE #### [facility] [address] [place] [address] CO2 [Moles/Vol] 19.3 mmol/L Low 23.0-27.0 [facility] Comment on above: Performed By: #### A BGE #### [facility] [address] [place] [address] FIO2 21 Normal [facility] Comment on above: Result Comment: Perf ormed by CLIA ID: [id number] [place], [place] Performed By: #### A BGE #### [facility] [address] [place] [address] HCO3 (Bld) [Moles/Vol] 18.3 mmol/L Low 21.0-25.0 [facility] Comment on above: Performed By: #### A BGE #### [facility] [address] [place] [address] Oxygen (Bld) [Partial pressure] 69.8 mm[Hg] Low 80.0-100.0 [facility] Comment on above: Performed By: #### A BGE #### [place] [address] [place] [address] Oxygen saturation in Blood 93.6 % Low 95.0-100.0 [facility] Comment on above: Performed By: #### A BGE #### [facility] [address] [place] [address] pCO2 31.2 mm[Hg] Low 35.0-45.0 [facility] Comment on above: Performed By: #### A BGE #### [facility] [address] [place] [address] pH (Bld) 7.376 Normal 7.350-7.45 0 [facility] Comment on above: Performed By: #### A BGE #### [facility] [address] [place] [address] Brain Natriuretic Peptideon 10-28-2020 Natriuretic peptide B (Bld) [Mass/Vol] 47 pg/mL 0 - 125 pg/mL [facility], [place] CR Chest Portableon 10-28-20 20 CR Chest Portable Patient Name: REGGIE WILSON Diagnostic Radiology ACCESSION EXAM DATE/TIME PROCEDURE ORDERING PROVIDER [id number] 10/28/2020 15:05 EST CR Chest Portable BALAJI SILVER DANIEL M CPT code 91576 Reason For Exam (CR Chest Portable) dyspnea [...] Transcribed Date and Time: 10/28/2020 3:21 Normal [facility] Comp Metabolic Panelon 10-28 ALP [Catalytic activity/Vol] 82 U/L Normal 38-126 [facility] Comment on above: Performed By: #### H EMOG, CMP3M, CRP2, LDH3, FIBGN, DDI2, APTT, FERR3 #### [facility] [address] [place] [address] ALT [Catalytic activity/Vol] 60 U/L High 0-49 [facility] Comment on above: Result Comment: The ALT test is performed by an updated assay method. Please note that the reference intervals have been changed and are now sex specific. Performed By: #### H EMOG, CMP3M, CRP2, LDH3, FIBGN, DDI2, APTT, FERR3 #### [facility] [address] [place] [address] Calcium [Mass/Vol] 8.6 mg/dL Normal 8.4-10.4 [facility] Comment on above: Performed By: #### H EMOG, CMP3M, CRP2, LDH3, FIBGN, DDI2, APTT, FERR3 #### [facility] [address] [place] [address] Glucose [Mass/Vol] 122 mg/dL High 70-100 [facility] Comment on above: Performed By: #### H EMOG, CMP3M, CRP2, LDH3, FIBGN, DDI2, APTT, FERR3 #### [facility] [address] [place] [address] Protein [Mass/Vol] 6.2 g/dL Low 6.3-8.2 [facility] Comment on above: Performed By: #### H EMOG, CMP3M, CRP2, LDH3, FIBGN, DDI2, APTT, FERR3 #### [facility] [address] [place] [address] Urea nitrogen [Mass/Vol] 35 mg/dL High 7-20 [facility] Comment on above: Performed By: #### H EMOG, CMP3M, CRP2, LDH3, FIBGN, DDI2, APTT, FERR3 #### [facility] [address] [place] [address] Anion gap [Moles/Vol] 9 Normal [facility] Comment on above: Performed By: #### H EMOG, CMP3M, CRP2, LDH3, FIBGN, DDI2, APTT, FERR3 #### [facility] [address] [place] [address] AST [Catalytic activity/Vol] 87 U/L High 15-46 [facility] Comment on above: Performed By: #### H EMOG, CMP3M, CRP2, LDH3, FIBGN, DDI2, APTT, FERR3 #### [facility] [address] [place] [address] Bilirubin [Mass/Vol] 0.6 mg/dL Normal 0.2-1.3 [facility] Comment on above: Performed By: #### H EMOG, CMP3M, CRP2, LDH3, FIBGN, DDI2, APTT, FERR3 #### [facility] [address] [place] [address] CO2 [Moles/Vol] 22 mmol/L Normal 22-30 [facility] Comment on above: Performed By: #### H EMOG, CMP3M, CRP2, LDH3, FIBGN, DDI2, APTT, FERR3 #### [facility] [address] [place] [address] Creatinine [Mass/Vol] 2.96 mg/dL High 0.52-1.25 [facility] Comment on above: Performed By: #### H EMOG, CMP3M, CRP2, LDH3, FIBGN, DDI2, APTT, FERR3 #### [facility] [address] [place] [address] GFR/1.73 sq M predicted among blacks MDRD (S/P/Bld) [Vol rate/Area] 25.9 mL/min/{1.73_m2} Abnormal >60 [facility] Comment on above: Performed By: #### H EMOG, CMP3M, CRP2, LDH3, FIBGN, DDI2, APTT, FERR3 #### [facility] [address] [place] [address] GFR/1.73 sq M predicted among non-blacks MDRD (S/P/Bld) [Vol rate/Area] 22.3 mL/min/{1.73_m2} Abnormal >60 [facility] Comment on above: Result Comment: KDIG [...] CRP2, LDH3, FIBGN, DDI2, APTT, FERR3 #### [facility] [address] [place] [address] Chloride [Moles/Vol] 101 mmol/L Normal 98-107 [facility] Comment on above: Performed By: #### H EMOG, CMP3M, CRP2, LDH3, FIBGN, DDI2, APTT, FERR3 #### [facility] [address] [place] [address] Potassium [Moles/Vol] 3.1 mmol/L Low 3.5-5.1 [facility] Comment on above: Performed By: #### H EMOG, CMP3M, CRP2, LDH3, FIBGN, DDI2, APTT, FERR3 #### [facility] [address] [place] [address] Sodium [Moles/Vol] 133 mmol/L Low 135-145 [facility] Comment on above: Performed By: #### H EMOG, CMP3M, CRP2, LDH3, FIBGN, DDI2, APTT, FERR3 #### [facility] [address] [place] [address] Albumin [Mass/Vol] 3.3 g/dL Low 3.5-5.0 [facility] Comment on above: Performed By: #### H EMOG, CMP3M, CRP2, LDH3, FIBGN, DDI2, APTT, FERR3 #### [facility] [address] [place] [address] Complete Urinalysison 2019 Amorphous Crystal Few Abnormal Negative [facility] Comment on above: Result Comment: . Performed By: #### C UA2 #### [facility] [address] [place] [address] Appearance (U) Clear Normal Clear [facility] Comment on above: Result Comment: . Performed By: #### C UA2 #### [facility] [address] [place] [address] Bacteria LM.HPF (Urine sed) [#/Area] Few Abnormal Negative [facility] Comment on above: Result Comment: . Performed By: #### C UA2 #### [facility] [address] [place] [address] Bilirubin,Urine Negative Normal Negative [facility] Comment on above: Result Comment: . Performed By: #### C UA2 #### [facility] [address] [place] [address] Cast, Granular 0 - 2 Abnormal Negative [facility] Comment on above: Result Comment: . Performed By: #### C UA2 #### [facility] [address] [place] [address] Cast, Hyaline 3 - 5 Abnormal Negative [facility] Comment on above: Result Comment: . Performed By: #### C UA2 #### [facility] [address] [place] [address] Color (U) Yellow Normal Lt. Yellow [facility] Comment on above: Result Comment: . Performed By: #### C UA2 #### [facility] [address] [place] [address] Glucose Ql (U) Normal Normal Normal (<70) [facility] Comment on above: Result Comment: . Performed By: #### C UA2 #### [facility] [address] [place] [address] Ketone,Urine Negative Normal Negative [facility] Comment on above: Result Comment: . Performed By: #### C UA2 #### [facility] [address] [place] [address] Leukocytes,Urine Negative Normal Negative [facility] Comment on above: Result Comment: . Performed By: #### C UA2 #### [facility] [address] [place] [address] Mucous Threads Few Normal Negative [facility] Comment on above: Result Comment: . Performed By: #### C UA2 #### [facility] [address] [place] [address] Nitrites,Urine Negative Normal Negative [facility] Comment on above: Result Comment: . Performed By: #### C UA2 #### [facility] [address] [place] [address] Non-Squamous Epithelial < 1 Abnormal Negative S [facility] Comment on above: Result Comment: . Performed By: #### C UA2 #### [facility] [address] [place] [address] Occult Blood,Urine Negative Normal Negative [facility] Comment on above: Result Comment: . Performed By: #### C UA2 #### [facility] [address] [place] [address] pH (U) 5.5 Normal 5.0-8.0 [facility] Comment on above: Result Comment: . Performed By: #### C UA2 #### [facility] [address] [place] [address] Protein (U) [Mass/Vol] 20 mg/dL Abnormal Negative [facility] Comment on above: Result Comment: . Performed By: #### C UA2 #### [facility] [address] [place] [address] RBC LM.HPF (Urine sed) [#/Area] 0 - 2 Normal 0-2 [facility] Comment on above: Result Comment: . Performed By: #### C UA2 #### [facility] [address] [place] [address] Specific [place],Urine 1.015 Normal 1.005 - 1.030 [facility] Comment on above: Result Comment: . Performed By: #### C UA2 #### [place] [address] [place] [address] Squamous Epithelial 0 - 2 Normal 3-5 [facility] Comment on above: Result Comment: . Performed By: #### C UA2 #### [place] [address] [place] [address] Urobilinogen,Urine Normal Normal Normal (0-1) [facility] Comment on above: Result Comment: . Performed By: #### C UA2 #### [facility] [address] [place] [address] WBC LM.HPF (Urine sed) [#/Area] 0 - 2 Normal 0-5 [facility] Comment on above: Result Comment: . Performed By: #### C UA2 #### [place] [address] [place] [address] Comprehensive Metabolic Pane rahul 10-28-2020 Albumin [Mass/Vol] 3.3 g/dL Low 3.5 - 5 g/dL [place] ALP [Catalytic activity/Vol] 82 U/L 38 - 126 U/L [place] ALT [Catalytic activity/Vol] 60 U/L High 0 - 49 U/L [place] Comment on above: The ALT test is perf ormed by an updated assay method. Please note that the reference intervals have been changed and are now sex specific. Anion gap [Moles/Vol] 9 mmol/L [place], [place] AST [Catalytic activity/Vol] 87 U/L High 15 - 46 U/L [place] Bilirubin Ql (U) 0.6 mg/dL 0.2 - 1.3 mg/dL [place] Calcium [Mass/Vol] 8.6 mg/dL 8.4 - 10. 4 mg/dL [place] Chloride [Moles/Vol] 101 mmol/L 98 - 10 7 mmol/L [place] CO2 [Moles/Vol] 22 mmol/L 22 - 30 mmol/L [place] Creatinine [Mass/Vol] 2.96 mg/dL High 0.52 - 1.25 mg/dL [place] EGFR IF NonAfrican [place]ijani 22.3 mL/min Abnormal >60 [place] Comment on above: KDIGO guidelines pro [...] (S/P/Bld) [Vol rate/Area] 25.9 mL/min/{1.73_m2} Abnormal >60 [place] Glucose [Mass/Vol] 122 mg/dL High 70 - 100 mg/dL [place] Interpretation and review of laboratory results Abnormal [place] Potassium [Moles/Vol] 3.1 mmol/L Low 3.5 - 5.1 mmol/L [place] Protein [Mass/Vol] 6.2 g/dL Low 6.3 - 8.2 g/dL [place] Sodium [Moles/Vol] 133 mmol/L Low 135 - 145 mmol/L [place] Urea nitrogen [Mass/Vol] 35 mg/dL High 7 - 20 mg/dL [place] ED Provider Noteon 0 ED Provider Note Emergency [facility] Patient: Reggie León : 1965 Date of Evaluation: 10/28/2020 ED Supervising Physician: Otf Long DO I independently examined and evaluated Reggie León. In brief, Reggie León is a 55 y.o. male that presents to the emergency department with increased shortness of breath from his senior living. Patient has a known COVID-19 infection. Patient [...] and cough. CELINA spoke with the patient's senior living who states that he was on 4 [...] EKG: Sinus rhythm rate 85, QTC 486, ID interval 184, Q wave in lead 3, [...] dictations but occasionally words are mis-transcribed.) Otf Long, DO [employer] Otf Long DO 10/28/20 1823 Normal [facility] ED Provider Note TWILA [facility] ED [...] History Narrative ? Not on file SCREENINGS @FLOW([id number])@ PHYSICAL EXAM (5+ for level 4, 8+ [...] Department physician in the absence of a change lead. Please see their accompanying note for interpretation. RADIOLOGY (Per EmergencyPhysician): Interpretation per the Radiologist below, if available at the time of this note: Xr Chest Portable Result Date: 10/28/2020 Patient Name: REGGIE LEÓN Diagnostic Radiology ACCESSION EXAM DATE/TIME PROCEDURE ORDERING PROVIDER [id number] 10/28/2020 15:05 EST CR Chest Portable BALAJI SILVER DANIEL M CPT code 65882 Reason For Exam (CR Chest Portable) dyspnea [...] (*) eGFR 25.9 (*) EGFR IF NonAfrican Azerbaijani 22.3 (*) Albumin,Serum 3.3 (*) Total Protein 6.2 (*) ALT 60 (*) AST 87 (*) All other components within normal limits Narrative: Test Performed by [facility], [address] [place] [address] CBC WITH AUTO DIFFERENTIAL - Abnormal; Notable for the following components: Hemoglobin 12.9 (*) Hematocrit 38.1 (*) Lymphocyte % 13.6 (*) Monocytes 17.8 (*) Eosinophils 0.8 (*) Absolute Lymph # 0.6 (*) All other components within normal limits Narrative: Test Performed by [facility], [facility] [address] [place] [address] POCT ARTERIAL - Abnormal; Notable for the following components: pCO2, Arterial 31.2 (*) pO2, Arterial 69.8 (*) HCO3, Arterial 18.3 (*) Base Excess, Arterial -5.8 (*) O2 Sat, Arterial 93.6 (*) TCO2, Arterial 19.3 (*) All other components within normal limits Narrative: Test Performed by [facility], [address] [place] [address] BRAIN NATRIURETIC PEPTIDE Narrative: Test Performed by [facility], [facility] [address] [place] [address] TROPONIN Narrative: Test Performed by [facility], [facility] [address] [place] [address] LACTIC ACID, PLASMA Narrative: Test Performed by [facility], [facility] [address] [facility]. [place] [address] URINALYSIS POCT ARTERIAL All other labs were [...] Provider NICKI Bustillo CNP 10/28/20 1750 Normal [facility] Hemogram (CBC) w/Auto Diffon 10-28-2020 Absolute Baso # 0.0 10*3/uL 0 - 0.2 10*3/uL [facility], [place] Absolute Neut # 3.1 10*3/uL 1.8 - 7 10*3/uL [place], [place] Basophils/100 WBC (Bld) 0.7 % 0 - 2 % [place], [place] Eosinophils (Bld) [#/Vol] 0.0 10*3/uL 0 - 0.5 10*3/uL [place] Eosinophils/100 WBC (Bld) 0.8 % Low 1 - 6 % [place] Erythrocyte distribution width (RBC) [Ratio] 14.0 % 11.5 - 14.5 % [place] Granulocytes/100 WBC (Bld) 67.1 % 40 - 80 % [place] Hematocrit (Bld) [Volume fraction] 38.1 % Low 40 - 52 % [place] Hemoglobin (Bld) [Mass/Vol] 12.9 g/dL Low 13 - 18 g/dL [place] Interpretation and review of laboratory results Abnormal [place] Lymphocytes (Bld) [#/Vol] 0.6 10*3/uL Low 1 - 4.3 10*3/uL [place] Lymphocytes/100 WBC (Bld) 13.6 % Low 20 - 40 % [place] MCH (RBC) [Entitic mass] 29.2 pg 26 - 34 pg [place] MCHC (RBC) [Mass/Vol] 33.9 % 32 - 36 % [place] MCV (RBC) [Entitic vol] 86.2 fL 80 - 98 fL [place], [place] Monocytes (Bld) [#/Vol] 0.8 10*3/uL 0 - 0.8 10*3/uL [place] Monocytes/100 WBC (Bld) 17.8 % High 2 - 10 % [place] Platelet mean volume (Bld) [Entitic vol] 7.4 fL 7.4 - 10.4 fL [place] Platelets (Bld) [#/Vol] 223 10*3/uL 140 - 440 10*3/uL [place] RBC (Bld) [#/Vol] 4.42 10*6/uL 4.4 - 5.9 10*6/uL [place] WBC (Bld) [#/Vol] 4.6 10*3/uL 3.6 - 10.7 10*3/uL [place] Test Performed by [facility], [address] [place] [address] [place] Hemogram w/ Autodiffon 10-28 Abs Baso Cnt 0.0 10*3/uL Normal 0.0-0.2 [facility] Comment on above: Performed By: #### H EMOG, CMP3M, CRP2, LDH3, FIBGN, DDI2, APTT, FERR3 #### [facility] [address] [place] [address] Abs Neutrophile Cnt 3.1 10*3/uL Normal 1.8-7.0 [facility] Comment on above: Performed By: #### H EMOG, CMP3M, CRP2, LDH3, FIBGN, DDI2, APTT, FERR3 #### [facility] [address] [place] [address] Basophils/100 WBC (Bld) 0.7 % Normal 0.0-2.0 [facility] Comment on above: Performed By: #### H EMOG, CMP3M, CRP2, LDH3, FIBGN, DDI2, APTT, FERR3 #### [facility] [address] [place] [address] Eosinophils (Bld) [#/Vol] 0.0 10*3/uL Normal 0.0-0.5 [facility] Comment on above: Performed By: #### H EMOG, CMP3M, CRP2, LDH3, FIBGN, DDI2, APTT, FERR3 #### [facility] [address] [place] [address] Eosinophils/100 WBC (Bld) 0.8 % Low 1.0-6.0 [facility] Comment on above: Performed By: #### H EMOG, CMP3M, CRP2, LDH3, FIBGN, DDI2, APTT, FERR3 #### [facility] [address] [place] [address] Erythrocyte distribution width (RBC) [Ratio] 14.0 % Normal 11.5-14.5 [facility] Comment on above: Performed By: #### H EMOG, CMP3M, CRP2, LDH3, FIBGN, DDI2, APTT, FERR3 #### [facility] [address] [place] [address] Granulocytes/100 WBC (Bld) 67.1 % Normal 40.0-80.0 [facility] Comment on above: Performed By: #### H EMOG, CMP3M, CRP2, LDH3, FIBGN, DDI2, APTT, FERR3 #### [facility] [address] [place] [address] Hematocrit (Bld) [Volume fraction] 38.1 % Low 40.0-52.0 [facility] Comment on above: Performed By: #### H EMOG, CMP3M, CRP2, LDH3, FIBGN, DDI2, APTT, FERR3 #### [facility] [address] [place] [address] Hemoglobin (Bld) [Mass/Vol] 12.9 g/dL Low 13.0-18.0 [facility] Comment on above: Performed By: #### H EMOG, CMP3M, CRP2, LDH3, FIBGN, DDI2, APTT, FERR3 #### [facility] [address] [place] [address] Lymphocytes (Bld) [#/Vol] 0.6 10*3/uL Low 1.0-4.3 [facility] Comment on above: Performed By: #### H EMOG, CMP3M, CRP2, LDH3, FIBGN, DDI2, APTT, FERR3 #### [facility] [address] [place] [address] Lymphocytes/100 WBC (Bld) 13.6 % Low 20.0-40.0 [facility] Comment on above: Performed By: #### H EMOG, CMP3M, CRP2, LDH3, FIBGN, DDI2, APTT, FERR3 #### [facility] [address] [place] [address] MCH (RBC) [Entitic mass] 29.2 pg Normal 26.0-34.0 [facility] Comment on above: Performed By: #### H EMOG, CMP3M, CRP2, LDH3, FIBGN, DDI2, APTT, FERR3 #### [facility] [address] [place] [address] MCHC (RBC) [Mass/Vol] 33.9 % Normal 32.0-36.0 [facility] Comment on above: Performed By: #### H EMOG, CMP3M, CRP2, LDH3, FIBGN, DDI2, APTT, FERR3 #### [facility] [address] [place] [address] MCV (RBC) [Entitic vol] 86.2 fL Normal 80.0-98.0 [facility] Comment on above: Performed By: #### H EMOG, CMP3M, CRP2, LDH3, FIBGN, DDI2, APTT, FERR3 #### [facility] [address] [place] [address] Monocytes (Bld) [#/Vol] 0.8 10*3/uL Normal 0.0-0.8 [facility] Comment on above: Performed By: #### H EMOG, CMP3M, CRP2, LDH3, FIBGN, DDI2, APTT, FERR3 #### [facility] [address] [place] [address] Monocytes/100 WBC (Bld) 17.8 % High 2.0-10.0 [facility] Comment on above: Performed By: #### H EMOG, CMP3M, CRP2, LDH3, FIBGN, DDI2, APTT, FERR3 #### [facility] [address] [place] [address] Platelet mean volume (Bld) [Entitic vol] 7.4 fL Normal 7.4-10.4 [facility] Comment on above: Performed By: #### H EMOG, CMP3M, CRP2, LDH3, FIBGN, DDI2, APTT, FERR3 #### [facility] [address] [place] [address] Platelets (Bld) [#/Vol] 223 10*3/uL Normal 140-440 [facility] Comment on above: Performed By: #### H EMOG, CMP3M, CRP2, LDH3, FIBGN, DDI2, APTT, FERR3 #### [facility] [address] [place] [address] RBC (Bld) [#/Vol] 4.42 10*6/uL Normal 4.40-5.90 [facility] Comment on above: Performed By: #### H EMOG, CMP3M, CRP2, LDH3, FIBGN, DDI2, APTT, FERR3 #### [facility] [address] [place] [address] WBC (Bld) [#/Vol] 4.6 10*3/uL Normal 3.6-10.7 [facility] Comment on above: Performed By: #### H EMOG, CMP3M, CRP2, LDH3, FIBGN, DDI2, APTT, FERR3 #### [facility] [address] [place] [address] Lactic Acidon 10-28-2020 Lactate [Moles/Vol] 1.6 mmol/L Normal 0.7-2.0 [facility] Comment on above: Performed By: #### H EMOG, CMP3M, CRP2, LDH3, FIBGN, DDI2, APTT, FERR3 #### [facility] [address] [place] [address] Lactic Acid, Plasmaon 2019 Lactate [Moles/Vol] 1.6 mmol/L 0.7 - 2 mmol/L [facility], [place] NT pro BNPon 10-28-2020 Natriuretic peptide B (Bld) [Mass/Vol] 47 pg/mL Normal 0-125 [facility] Comment on above: Performed By: #### H EMOG, CMP3M, CRP2, LDH3, FIBGN, DDI2, APTT, FERR3 #### [facility] [address] [place] [address] Otheron 10-28-2020 Test Performed by [facility], [address] [place], [place] [address] [place] Test Performed by [facility], [address] [place], [place] [address] [place] [address] POCT Arterialon 10-28-2020 Base Excess, Arterial -5.8 mmol/L Low -3 - 3 mmol/L [place] HCO3, Arterial 18.3 mmol/L Low 21 - 25 mmol/L [place] Interpretation and review of laboratory results Abnormal [place] Oxygen saturation in Blood 93.6 % Low 95 - 100 % [place] pCO2, Arterial 31.2 mm[Hg] Low 35 - 45 mm[Hg] [place] pH, Arterial 7.376 [place] pO2, Arterial 69.8 mm[Hg] Low 80 - 100 mm[Hg] [place] Sodium [Moles/Vol] 21 mmol/L [place] Comment on above: Performed by CLIA ID : [id number] [place], [place] TCO2, Arterial 19.3 mmol/L Low 23 - 27 mmol/L [place] Test Performed by [facility], [address] [place], [place] [id number] [place] [address] Procalcitoninon 10-28-2020 Interpretation See Below Normal [facility] Comment on above: Result Comment: PCT <0.50 = Low risk of severe sepsis and/or septic shock. PCT >2.00 = High risk of severe sepsis and/or septic shock. Performed By: #### H EMOG, CMP3M, CRP2, LDH3, FIBGN, DDI2, APTT, FERR3 #### [facility] [address] [place] [address] Respiratory Panel, Molecular , with COVID-19 (Restricted: peds pts or suitable admitted adults)on 10-28-2020 Respiratory Panel Molecular, with COVID NEGATIVE: No targets were detected by the CRISPR THERAPE[employer] Upper Respiratory Pathogens PCR Panel. _ Expected [...] management decisions. This assay was developed by [employer] and distributed under an Emergency Use Authorization (EUA) granted by the FDA for the qualitative detection of SARS-CoV-2 nucleic acid. Provider and patient fact sheets can be found at https://www.fda.gov/media/ 794796/download and https://www.fda.gov/media/ 899100/download. [place], [place] Test Performed by [facility], [address] [place] [address] [place] Troponin Ion 10-28-2020 Troponin I.cardiac [Mass/Vol] ng/mL Normal 0.000-0.03 4 [facility] Comment on above: Result Comment: . Performed By: #### H EMOG, CMP3M, CRP2, LDH3, FIBGN, DDI2, APTT, FERR3 #### [facility] [address] [place] [address] Troponin x1on 10-28-2020 Troponin I.cardiac [Mass/Vol] ng/mL 0 - 0.034 ng/mL [place] Comment on above: . Urinalysison 10-28-2020 AMORPHOUS CRYSTAL Few Abnormal Negative /[HPF] [place] Comment on above: . Appearance (U) Clear Clear NA [place] Comment on above: . Bacteria, UA Few Abnormal Negative /[HPF] [place] Comment on above: . Bilirubin Urine Negative Negative mg/dL [place] Comment on above: . Color (U) Yellow Lt. Yellow NA [place] Comment on above: . Glucose, Ur Normal Normal (<70) mg/dL [place] Comment on above: . Granular Casts, UA 0-2 Abnormal Negative /[LPF] [place] Comment on above: . Hyaline Casts, UA 3-5 Abnormal Negative /[LPF] [place] Comment on above: . Interpretation and review of laboratory results Abnormal [place] Ketones Ql (U) Negative Negative mg/dL [place] Comment on above: . LEUKOCYTES, UA Negative Negative Mary/uL [place] Comment on above: . Mucous Threads Few Negative /[LPF] [place] Comment on above: . Nitrite, Urine Negative Negative NA [place] Comment on above: . Non-Squamous Epithelial <1 Abnormal Nega tive /[HPF] [place] Comment on above: . Occult Blood,Urine Negative Negative mg/dL [place] Comment on above: . pH (U) 5.5 [pH] [place] Comment on above: . Protein (U) [Mass/Vol] 20 mg/dL Abnormal Negative [place] Comment on above: . RBC (U) [#/Vol] 0-2 0 - 2 /[HPF] [place] Comment on above: . Specific [place], Urine 1.015 [place] Comment on above: . Squam Epithel, UA 0-2 3 - 5 /[HPF] [place] Comment on above: . Urobilinogen, Urine Normal Normal (0-1) mg/dL [place] Comment on above: . WBC, UA 0-2 0 - 5 /[HPF] [place] Comment on above: . Test Performed by [facility], [address] [place], [place], [place] [address] [place] XR CHEST PORTABLEon 10-28-20 20 [place], [facility] Incoming Radiology Results From [facility] - 10/28/2020 3:21 PM EST Patient Name: REGGIE LEÓN Diagnostic Radiology ACCESSION EXAM DATE/TIME PROCEDURE ORDERING PROVIDER [id number] 10/28/2020 15:05 EST CR Chest Portable BALAJI SILVER DANIEL M CPT code 61138 Reason For Exam (CR Chest Portable) dyspnea [...] JOHN Transcribed Date and Time: 10/28/2020 3:21 [place] Patient Name: REGGIE WILSON Diagnostic Radiology ACCESSION EXAM DATE/TIME PROCEDURE ORDERING PROVIDER [id number] 10/28/2020 15:05 EST CR Chest Portable BALAJI SILVER DANIEL M CPT code 37027 Reason For Exam (CR Chest Portable) dyspnea [...] JOHN Transcribed Date and Time: 10/28/2020 3:21 [facility] with eGFRon 05-05-2020 Age - Reported 54 years Normal [facility] Comment on above: Performed By: #### 2 [id number] #### [facility],[address] [place] [address] Anion gap [Moles/Vol] 11 mmol/L Normal 10 - 20 [facility] Comment on above: Performed By: #### 2 [id number] #### [address] [address] Calcium [Mass/Vol] 9.5 mg/dL Normal 8.6 - 10.2 [facility] Comment on above: Performed By: #### 2 [id number] #### [facility],[address] [place] [address] CO2 [Moles/Vol] 24.7 mmol/L Normal 21.0 - 31.0 [facility] Comment on above: Performed By: #### 2 [id number] #### [facility],[address] [place] [address] GFR/1.73 sq M predicted among non-blacks MDRD (S/P/Bld) [Vol rate/Area] 27 ML/MINUTE Low 60 - 999 [facility] Comment on above: Performed By: #### 2 [id number] #### [facility],[address] [place] [address] GFR/1.73 sq M predicted among non-blacks MDRD (S/P/Bld) [Vol rate/Area] 33 ML/MINUTE Low 60 - 999 [facility] Comment on above: Result Comment: ACCO RDING TO THE NATIONAL KIDNEY DISEASE EDUCATION PROGRAM(NKDE), A NORMAL eGFR IS A VALUE GREATER THAN OR EQUAL TO 60 ML/MIN/1.73 SQ METERS. CHRONIC KIDNEY DISEASE: <60mL/MIN/1.73 SQ METERS KIDNEY FAILURE: <15mL/MIN/1.73 SQ METERS THIS TEST SHOULD ONLY BE USED FOR PATIENTS 18 YEARS OF AGE AND OLDER. Performed By: #### 2 73303 #### [facility],[address] [place] [address] 86002 GFR/1.73 sq M predicted among non-blacks MDRD (S/P/Bld) [Vol rate/Area] Normal [facility] Comment on above: Result Comment: BASI C METABOLIC PANEL Performed By: #### 2 65374 #### [facility],[address] [place] [address] 51292 Glucose [Mass/Vol] 113 mg/dL High 74 - 106 [facility] Comment on above: Performed By: #### 2 06117 #### [address] [address] Potassium [Moles/Vol] 4.1 mmol/L Normal 3.5 - 5.1 [facility] Comment on above: Performed By: #### 2 09936 #### [facility],[address] [place] [address] 51344 Urea nitrogen [Mass/Vol] 24 mg/dL High 6 - 20 [facility] Comment on above: Performed By: #### 2 40582 #### [facility],[address] [place] [address] 73324 CBC + DIFFon 05-05-2020 Basophils (Bld) [#/Vol] 0.10 x10EE3/UL Normal 0. 00 - 0.10 [facility] Comment on above: Performed By: #### 2 59272 #### [address] [address] Basophils/100 WBC (Bld) 0.9 % Normal 0.0 - 2.0 [facility] Comment on above: Performed By: #### 2 42779 #### [facility],[address] [place] [address] 23405 CBC + DIFF Normal [facility] Comment on above: Result Comment: CBC- COMPLETE BLOOD COUNT Performed By: #### 2 13988 #### [facility],[address] [place] [address] 73865 Eosinophils (Bld) [#/Vol] 0.40 x10EE3/UL Normal 0.00 - 0.50 [facility] Comment on above: Performed By: #### 2 81083 #### [facility],[address] [place] [address] 24146 Eosinophils/100 WBC (Bld) 5.4 % Normal 0.0 - 7.0 [facility] Comment on above: Performed By: #### 2 00443 #### [facility],[address] [place] [address] 30677 Erythrocyte distribution width (RBC) [Ratio] 12.7 % Normal 12.0 - 15.6 [facility] Comment on above: Performed By: #### 2 49328 #### [facility],[address] [place], [place] [id number] Hematocrit (Bld) [Volume fraction] 37.0 % Low 40.0 - 52.0 [facility] Comment on above: Performed By: #### 2 74884 #### [facility],[address] [place] [address] 36083 Hemoglobin (Bld) [Mass/Vol] 13.0 g/dL Normal 13.0 - 17.5 [facility] Comment on above: Performed By: #### 2 79953 #### [facility],[address] [place] [address] 96720 Lymphocytes (Bld) [#/Vol] 1.50 x10EE3/UL Normal 0.80 - 2.80 [facility] Comment on above: Performed By: #### 2 33535 #### [facility],[address] [place] [address] 74661 Lymphocytes/100 WBC (Bld) 18.7 % Low 20.0 - 45.0 [facility] Comment on above: Performed By: #### 2 41227 #### [facility],[address] [place] [address] 73549 MANUAL DIFF N/A Normal [facility] Comment on above: Performed By: #### 2 69473 #### [facility],[address] [place] [address] 52832 MCH (RBC) [Entitic mass] 31 pg Normal 27 - 33 [facility] Comment on above: Performed By: #### 2 02484 #### [facility],[address] [place] [address] 70582 MCHC (RBC) [Mass/Vol] 35 X10 3 Normal 32 - 36 [facility] Comment on above: Performed By: #### 2 04822 #### [facility],[address] [place] [address] 20429 MCV (RBC) [Entitic vol] 87 fL Normal 81 - 98 [facility] Comment on above: Performed By: #### 2 19630 #### [facility],[address] [place] [address] 82697 Monocytes (Bld) [#/Vol] 1.20 x10EE3/UL High 0. 20 - 1.00 [facility] Comment on above: Performed By: #### 2 82849 #### [facility],[address] [place] [address] 83731 MONOS % 14.8 % High 0.0 - 10.0 [facility] Comment on above: Performed By: #### 2 07984 #### [facility],[address] [place] [address] 94971 Morphology Crispin (Bld) [Interp] N/A Normal [facility] Comment on above: Performed By: #### 2 95859 #### [facility],[address] [place] [address] 75853 Neutrophils (Bld) [#/Vol] 4.80 x10EE3/UL Normal 1.50 - 7.10 [facility] Comment on above: Performed By: #### 2 35094 #### [facility],[address] [place] [address] 66170 Neutrophils/100 WBC (Bld) 60.2 % Normal 46.0 - 76.0 [facility] Comment on above: Performed By: #### 2 05175 #### [facility],[address] [place] [address] 18923 Platelet mean volume (Bld) [Entitic vol] 7.2 fL Normal 6.4 - 10.5 [facility] Comment on above: Result Comment: AUTO MATED DIFFERENTIAL Performed By: #### 2 74604 #### [facility],[address] [place] [address] 91910 Platelets (Bld) [#/Vol] 286 x10EE3/UL Normal 150 - 450 [facility] Comment on above: Performed By: #### 2 07910 #### [facility],[address] [place] [address] 11348 RBC (Bld) [#/Vol] 4.24 x 10EE6/UL Low 4.50 - 6.00 [facility] Comment on above: Performed By: #### 2 06551 #### [facility],[address] [place] [address] 54098 WBC (Bld) [#/Vol] 8.0 x 10EE3/UL Normal 4.5 - 10.8 [facility] Comment on above: Performed By: #### 2 89978 #### [facility],[address] [place] [address] 38459 CULTURE URINEon 05-05-2020 CULTURE URINE CULTURE URINE _URINE CULTURE_ M I C R O B I O L O G Y R E P O R T FINAL ------- Antimicrobial Susceptibility and Organism Identification Report -------- Specimen Number : [id number] Requested : 05/05/20 Specimen Source : URINE Collected : 05/05/20 03:00 Ar[place]ondo of Isolation : MEME HUANG Received : 05/05/20 03:00 Requesting Physician : FLORECITA -- Patient/Specimen Tests and Comments Specimen Comments -------- -------- FINAL REPORT: NO GROWTH AT 48 HOURS -- Tech : Source : URINE ID # : [id number] FINAL Report Date : / / : Collected : 05/05/20 03:00 05/07/20.1244.VIVIANA. 05/06/20.0705.JLN. 05/07/20.1245.KLS.COMPLETE Normal [facility] Comment on above: Performed By: #### 2 28315 #### [facility],[address] [place] [address] 06624 LITHIUMon 05-05-2020 [place] [Moles/Vol] 0.9 mmol/L Normal 0.6 - 1.2 [facility] Comment on above: Performed By: #### 2 31077 #### [facility],[address] [place] [address] 17069 RENAL FUNCTION PANELon 05-05 Albumin [Mass/Vol] 3.3 g/dL Low 3.4 - 4.8 [facility] Comment on above: Performed By: #### 2 57703 #### [facility],[address] [place] [address] 47262 B/C RATIO 10 ratio Normal 0 - 30 [facility] Comment on above: Performed By: #### 2 68442 #### [facility],[address] [place] [address] 85304 Chloride [Moles/Vol] 107 mmol/L Normal 98 - 107 [facility] Comment on above: Performed By: #### 2 17137 #### [facility],[address] [place] [address] 07720 Creatinine [Mass/Vol] 2.5 mg/dL High 0.7 - 1.3 [facility] Comment on above: Performed By: #### 2 30794 #### [facility],[address] [place] [address] 99387 Phosphate [Mass/Vol] 4.9 mg/dL Normal 2.7 - 4.9 [facility] Comment on above: Performed By: #### 2 78307 #### [facility],[address] [place] [address] 00004 RENAL FUNCTION PANEL Normal [facility] Comment on above: Result Comment: JESSICA L FUNCTION PANEL Performed By: #### 2 06219 #### [facility],[address] [place] [address] 46972 Sodium [Moles/Vol] 139 mmol/L Normal 136 - 145 [facility] Comment on above: Performed By: #### 2 86588 #### [facility],[address] [place] [address] 31314 URINALYSISon 05-05-2020 Bilirubin [Mass/Vol] Negative Normal NORMAL: NEGATIVE [facility] Comment on above: Performed By: #### 2 27615 #### [facility],[address] [place] [address] 79741 Blood Negative Normal NORMAL: NEGATIVE [facility] Comment on above: Performed By: #### 2 38077 #### [facility],[address] [place] [address] 28970 Clarity (U) clear Normal NORMAL: CLEAR [facility] Comment on above: Performed By: #### 2 21248 #### [facility],[address] [place] [address] 76703 Color (U) yellow Normal NORMAL: YELLOW [facility] Comment on above: Performed By: #### 2 83892 #### [facility],[address] [place] [address] 80097 Glucose [Mass/Vol] NORM Normal NORMAL: NORMAL [facility] Comment on above: Performed By: #### 2 65583 #### [facility],[address] [place] [address] 58677 Ketone Negative Normal NORMAL: NEGATIVE [facility] Comment on above: Performed By: #### 2 72036 #### [facility],[address] [place] [address] 54680 Microscopic NOT INDICATED Normal [facility] Comment on above: Performed By: #### 2 84304 #### [facility],[address] [place] [address] 73542 Nitrite Ql (U) Negative Normal NORMAL: NEGATIVE [facility] Comment on above: Performed By: #### 2 72899 #### [facility],[address] [place] [address] pH (Bld) 6 Normal NORMAL: 5.0-8.0 [facility] Comment on above: Performed By: #### 2 49856 #### [facility],[address] [place] [address] Protein (U) [Mass/Vol] Negative Normal JENN L: NEGATIVE [facility] Comment on above: Performed By: #### 2 97024 #### [facility],[address] [place] [address] Sp [place] 1.020 Normal NORMAL: 1.010-1.03 0 [facility] Comment on above: Performed By: #### 2 44008 #### [facility],[address] [place] [address] Specimen type Nom (Spec) UNSPECIFIED Normal [facility] Comment on above: Performed By: #### 2 33329 #### [facility],[address] [place] [address] Urobilinog NORM Normal NORMAL: NORMAL [facility] Comment on above: Performed By: #### 2 38581 #### [facility],[address] [place] [address] 06975 WBC (Bld) [#/Vol] Negative Normal NORMAL: NEGATIVE [facility] Comment on above: Performed By: #### 2 74076 #### [facility],[address] [place] [address] 66470 CBC + DIFFon 04-08-2020 Basophils (Bld) [#/Vol] 0.10 x10EE3/UL Normal 0. 00 - 0.10 [facility] Comment on above: Performed By: #### 2 77765 ####[facility],[address] [place] [address] Basophils/100 WBC (Bld) 1.2 % Normal 0.0 - 2.0 [facility] Comment on above: Performed By: #### 2 29129 ####[facility],[address] [place] [address] CBC + DIFF Normal [facility] Comment on above: Result Comment: CBC- COMPLETE BLOOD COUNT Performed By: #### 2 73862 ####[facility],[address] [place] [address] Eosinophils (Bld) [#/Vol] 0.40 x10EE3/UL Normal 0.00 - 0.50 [facility] Comment on above: Performed By: #### 2 86405 ####[facility],[address] [place] [address] Eosinophils/100 WBC (Bld) 4.3 % Normal 0.0 - 7.0 [facility] Comment on above: Performed By: #### 2 04464 ####[facility],[address] [place] [address] Erythrocyte distribution width (RBC) [Ratio] 12.9 % Normal 12.0 - 15.6 [facility] Comment on above: Performed By: #### 2 77769 ####[facility],[address] [place] [address] Hematocrit (Bld) [Volume fraction] 38.7 % Low 40.0 - 52.0 [facility] Comment on above: Performed By: #### 2 64859 ####[facility],[address] [place], [place] [address] Hemoglobin (Bld) [Mass/Vol] 13.4 g/dL Normal 13.0 - 17.5 [facility] Comment on above: Performed By: #### 2 68146 ####[facility],[address] [place] [address] Lymphocytes (Bld) [#/Vol] 1.80 x10EE3/UL Normal 0.80 - 2.80 [facility] Comment on above: Performed By: #### 2 95163 ####[facility],[address] [place] [address] 06971 Lymphocytes/100 WBC (Bld) 21.9 % Normal 20.0 - 45.0 [facility] Comment on above: Performed By: #### 2 94553 ####[facility],[address] [place] [address] 39914 MANUAL DIFF N/A Normal [facility] Comment on above: Performed By: #### 2 85402 ####[facility],[address] [place] [address] 00197 MCH (RBC) [Entitic mass] 31 pg Normal 27 - 33 [facility] Comment on above: Performed By: #### 2 07000 ####[facility],[address] [place] [address] 39989 MCHC (RBC) [Mass/Vol] 35 X10 3 Normal 32 - 36 [facility] Comment on above: Performed By: #### 2 40945 ####[facility],[address] [place] [address] 28268 MCV (RBC) [Entitic vol] 88 fL Normal 81 - 98 [facility] Comment on above: Performed By: #### 2 77638 ####[facility],[address] [place] [address] 29061 Monocytes (Bld) [#/Vol] 1.20 x10EE3/UL High 0. 20 - 1.00 [facility] Comment on above: Performed By: #### 2 49756 ####[facility],[address] [place] [address] 29001 MONOS % 14.1 % High 0.0 - 10.0 [facility] Comment on above: Performed By: #### 2 67966 ####[facility],[address] [place] [address] 19729 Morphology Cris[place] (Bld) [Interp] N/A Normal [facility] Comment on above: Performed By: #### 2 02340 ####[facility],[address] [place] [address] 57193 Neutrophils (Bld) [#/Vol] 4.90 x10EE3/UL Normal 1.50 - 7.10 [facility] Comment on above: Performed By: #### 2 98162 ####[address] [address] Neutrophils/100 WBC (Bld) 58.5 % Normal 46.0 - 76.0 [facility] Comment on above: Performed By: #### 2 95949 ####[address] [address]602 Platelet mean volume (Bld) [Entitic vol] 7.4 fL Normal 6.4 - 10.5 [facility] Comment on above: Result Comment: AUTO MATED DIFFERENTIAL Performed By: #### 2 88017 ####[address] [address] Platelets (Bld) [#/Vol] 268 x10EE3/UL Normal 150 - 450 [facility] Comment on above: Performed By: #### 2 82931 ####[address] 02780 RBC (Bld) [#/Vol] 4.41 x 10EE6/UL Low 4.50 - 6.00 [facility] Comment on above: Performed By: #### 2 94440 ####[address] [address]605 WBC (Bld) [#/Vol] 8.3 x 10EE3/UL Normal 4.5 - 10.8 [facility] Comment on above: Performed By: #### 2 13449 ####[address] [address] CULTURE URINEon 04-08-2020 CULTURE URINE CULTURE URINE _URINE CULTURE_ M I C R O B I O L O G Y R E P O R T FINAL ------- Antimicrobial Susceptibility and Organism Identification Report -------- Specimen Number : [id number] Requested : 04/08/20 Specimen Source : CLEAN CATCH URINE Collected : 04/08/20 06:28 [place] of [place]olation : MEME HUANG Received : 04/08/20 06:28 Requesting Physician : FLORECITA -- Patient/Specimen Tests and Comments Specimen Comments -------- -------- FINAL REPORT: NO GROWTH AT 48 HOURS -- Tech : Source : CLEAN CATCH URINE ID # : [id number] FINAL Report Date : / / : Collected : 04/08/20 06:28 04/10/20.1059.BKO. 04/09/20.1214.KLS. 04/10/20.1059.BKO.COMPLETE Normal [facility] Comment on above: Performed By: #### 2 13682 #### [facility],[address] [place] [address] 04610 HEPATIC FUNCTION PANELon Albumin [Mass/Vol] 3.4 g/dL Normal 3.4 - 4.8 [facility] Comment on above: Performed By: #### 2 50157 ####[facility],[address] [place] [address] 83895 Performed By: #### 2 01120 ####[facility],[address] [place] [address] 40379 ALK PHOS 65 U/L Normal 38 - 126 [facility] Comment on above: Performed By: #### 2 91279 ####[facility],[address] [place] [address] 82839 ALT/SGPT 16 U/L Normal 10 - 40 [facility] Comment on above: Performed By: #### 2 30064 ####[facility],[address] [place] [address] 88392 AST/SGOT 10 U/L Low 13 - 39 [facility] Comment on above: Performed By: #### 2 48687 ####[facility],[address] [place] [address] 57666 Bilirubin [Mass/Vol] 0.4 mg/dL Normal 0.0 - 1.5 [facility] Comment on above: Performed By: #### 2 40173 ####[facility],[address] [place] [address] 48279 Bilirubin.direct [Mass/Vol] 0.1 mg/dL Normal 0.0 - 0.1 [facility] Comment on above: Performed By: #### 2 40048 ####[facility],[address] [place] [address] HEPATIC FUNCTION PANEL Normal [facility] Comment on above: Result Comment: HEPA TIC FUNCTION PROFILE Performed By: #### 2 51419 ####[facility],[address] [place] [address] Protein [Mass/Vol] 5.4 g/dL Low 6.4 - 8.3 [facility] Comment on above: Performed By: #### 2 60045 ####[facility],[address] [place] [address] LITHIUMon 04-08-2020 [place] [Moles/Vol] 0.7 mmol/L Normal 0.6 - 1.2 [facility] Comment on above: Performed By: #### 2 19521 ####[facility],[address] [place] [address] RENAL FUNCTION PANELon 04-08 B/C RATIO 11 ratio Normal 0 - 30 [facility] Comment on above: Performed By: #### 2 65632 ####[facility],[address] [place] [address] Calcium [Mass/Vol] 9.5 mg/dL Normal 8.6 - 10.2 [facility] Comment on above: Performed By: #### 2 62917 ####[facility],[address] [place], [place] [id number] Chloride [Moles/Vol] 105 mmol/L Normal 98 - 107 [facility] Comment on above: Performed By: #### 2 88516 ####[facility],[address] [place] [address] 60739 CO2 [Moles/Vol] 25.4 mmol/L Normal 21.0 - 31.0 [facility] Comment on above: Performed By: #### 2 26876 ####[facility],[address],[place] [address] Creatinine [Mass/Vol] 2.1 mg/dL High 0.7 - 1.3 [facility] Comment on above: Performed By: #### 2 49124 ####[facility],[address] [place] [address] 42462 Glucose [Mass/Vol] 105 mg/dL Normal 74 - 106 [facility] Comment on above: Performed By: #### 2 50049 ####[facility],[address] [place] [address] 89258 Phosphate [Mass/Vol] 5.2 mg/dL High 2.7 - 4.9 [facility] Comment on above: Performed By: #### 2 85945 ####[facility],[address] [place] [address] 71756 Potassium [Moles/Vol] 3.8 mmol/L Normal 3.5 - 5.1 [facility] Comment on above: Performed By: #### 2 11712 ####[facility],[address] [place] [address] 16114 RENAL FUNCTION PANEL Normal [facility] Comment on above: Result Comment: JESSICA L FUNCTION PANEL Performed By: #### 2 03797 ####[facility],[address] [place] [address] 16556 Sodium [Moles/Vol] 139 mmol/L Normal 136 - 145 [facility] Comment on above: Performed By: #### 2 51634 ####[facility],[address] [place] [address] 19515 Urea nitrogen [Mass/Vol] 23 mg/dL High 6 - 20 [facility] Comment on above: Performed By: #### 2 46179 ####[facility],[address] [place] [address] 16117 URINALYSISon 04-08-2020 Bilirubin [Mass/Vol] Negative Normal NORMAL: NEGATIVE [facility] Comment on above: Performed By: #### 2 14798 #### [facility],[address] [place] [address] 74272 Blood Negative Normal NORMAL: NEGATIVE [facility] Comment on above: Performed By: #### 2 50670 #### [facility],[address] [place] [address] 41762 Clarity (U) clear Normal NORMAL: CLEAR [facility] Comment on above: Performed By: #### 2 78123 #### [facility],[address] [place], [place] [id number] Color (U) p.yel Normal NORMAL: YELLOW [facility] Comment on above: Performed By: #### 2 06897 #### [facility],[address] [place], [place] [id number] Glucose [Mass/Vol] NORM Normal NORMAL: NORMAL [facility] Comment on above: Performed By: #### 2 35975 #### [facility],[address] [place], [place] [id number] Ketone Negative Normal NORMAL: NEGATIVE [facility] Comment on above: Performed By: #### 2 05287 #### [facility],[address] [place], [place] [id number] Microscopic NOT INDICATED Normal [facility] Comment on above: Performed By: #### 2 64608 #### [facility],[address] [place] [address] 54165 Nitrite Ql (U) Negative Normal NORMAL: NEGATIVE [facility] Comment on above: Performed By: #### 2 68428 #### [facility],[address] [place] [address] 22224 pH (Bld) 6 Normal NORMAL: 5.0-8.0 [facility] Comment on above: Performed By: #### 2 50516 #### [facility],[address] [place] [address] 88229 Protein (U) [Mass/Vol] Negative Normal JENN L: NEGATIVE [facility] Comment on above: Performed By: #### 2 22293 #### [facility],[address] [place] [address] 57878 Sp [place] 1.020 Normal NORMAL: 1.010-1.03 0 [facility] Comment on above: Performed By: #### 2 71201 #### [facility],[address] [place] [address] Specimen type Nom (Spec) Clean catch Normal [facility] Comment on above: Performed By: #### 2 35956 #### [facility],[address] [place] [address] Urobilinog NORM Normal NORMAL: NORMAL [facility] Comment on above: Performed By: #### 2 15163 #### [facility],[address] [place] [address] WBC (Bld) [#/Vol] Negative Normal NORMAL: NEGATIVE [facility] Comment on above: Performed By: #### 2 06612 #### [facility],[address] [place], [place] [id number] URINE CREATININE AND PROTEIN RATIOon 04-08-2020 CREATININE UR 146.3 mg/dl Normal [facility] Comment on above: Performed By: #### 2 32475 ####[facility],[address] [place] [address] 91075 PC RATIO 0.06 mg/dL Normal 0.00 - 10.00 [facility] Comment on above: Performed By: #### 2 88091 ####[facility],[address] [place] [address] 85680 Protein (U) [Mass/Vol] 9.00 mg/dL Normal 0.00 - 10.00 [facility] Comment on above: Performed By: #### 2 23324 ####[facility],[address] [place], [place] [id number] HGB A1C [CCL]on 03-18-2020 HbA1c (Bld) [Mass fraction] 117 mg/dL Normal [facility] Comment on above: Result Comment: eAG: (Estimated average glucose) is a calculated value from HgbA1c and is customer contact representative of the average blood glucose level in the last 2-3 month period. [facility] [address] [place] [address] Dre Gilliland III, M.D. [id number] Performed By: #### 2 07103 ####[address] [address] HbA1c (Bld) [Mass fraction] 5.7 % High 4.3-5.6 [facility] Comment on above: Result Comment: [place] Diabetes Association guidelines indicate that patients with HgbA1c in the range 5.7-6.4% are at increased risk for development of diabetes, and intervention by lifestyle modification may be beneficial. HgbA1c greater or equal to 6.5% is considered diagnostic of diabetes. Performed By: #### 2 41581 ####[facility],[address] [place] [address] 22548 Hemoglobin A1con 03-18-2020 HbA1c (Bld) [Mass fraction] 5.7 % High 4.3-5.6 [facility] Comment on above: Performed By: #### H BA1C #### [facility] Routine Lab [address] [address] HbA1c (Bld) [Mass fraction] 117 mg/dL Normal [facility] Comment on above: Performed By: #### H BA1C #### [facility] Routine Lab [facility] [address] LIPID PROFILEon 03-17-2020 Cholesterol [Mass/Vol] 133 mg/dL Normal 0 - 200 [facility] Comment on above: Performed By: #### 2 97736 ####[address] [address] Cholesterol in HDL [Mass/Vol] 29 mg/dL Low 40 - 60 [facility] Comment on above: Performed By: #### 2 33148 ####[facility],[address] [place] [address] 76674 Cholesterol in LDL [Mass/Vol] 59 mg/dL Normal 0 - 129 [facility] Comment on above: Performed By: #### 2 09168 ####[facility],[address] [place] [address] 51706 Cholesterol.total/Choles terol in HDL [Mass ratio] 4.6 {ratio} Normal 0.0 - 5.0 [facility] Comment on above: Performed By: #### 2 74056 ####[facility],[address] [place] [address] 49111 Lipid 1996 panel Normal [facility] Comment on above: Result Comment: LIPI D PROFILE Performed By: #### 2 70695 ####[facility],[address] [place] [address] 89130 Triglyceride [Mass/Vol] 224 mg/dL High 0 - 150 [facility] Comment on above: Performed By: #### 2 12098 ####[facility],[address] [place] [address] 53870 TSHon 03-17-2020 TSH Qn 0.99 uIU/ml Normal 0.34 - 5.60 [facility] Comment on above: Performed By: #### 2 77180 ####[facility],[address] [place] [address] 25034 URINE CREATININE AND PROTEIN RATIOon 03-11-2020 CREATININE UR 65.8 mg/dl Normal [facility] Comment on above: Performed By: #### 2 50823 ####[facility],[address] [place] [address] 06352 PC RATIO 0.06 mg/dL Normal 0.00 - 10.00 [facility] Comment on above: Performed By: #### 2 50410 ####[facility],[address] [place] [address] 57185 Protein (U) [Mass/Vol] mg/dL Normal 0.00 - 10.00 [facility] Comment on above: Performed By: #### 2 92411 ####[facility],[address] [place], [place] [id number] CBC + DIFFon 03-10-2020 Basophils (Bld) [#/Vol] 0.10 x10EE3/UL Normal 0. 00 - 0.10 [facility] Comment on above: Performed By: #### 2 43483 #### [facility],[address] [place] [address] 69449 Basophils/100 WBC (Bld) 1.3 % Normal 0.0 - 2.0 [facility] Comment on above: Performed By: #### 2 66612 #### [facility],[address] [place] [address] CBC + DIFF Normal [facility] Comment on above: Result Comment: CBC- COMPLETE BLOOD COUNT Performed By: #### 2 79259 #### [facility],[address] [place] [address] Eosinophils (Bld) [#/Vol] 0.40 x10EE3/UL Normal 0.00 - 0.50 [facility] Comment on above: Performed By: #### 2 79661 #### [facility],[address] [place] [address] 43992 Eosinophils/100 WBC (Bld) 5.7 % Normal 0.0 - 7.0 [facility] Comment on above: Performed By: #### 2 55103 #### [facility],[address] [place], [place] [id number] Erythrocyte distribution width (RBC) [Ratio] 13.3 % Normal 12.0 - 15.6 [facility] Comment on above: Performed By: #### 2 47803 #### [facility],[address] [place] [address] 06488 Hematocrit (Bld) [Volume fraction] 40.4 % Normal 40.0 - 52.0 [facility] Comment on above: Performed By: #### 2 57789 #### [facility],[address] [place] [address] 61792 Hemoglobin (Bld) [Mass/Vol] 13.8 g/dL Normal 13.0 - 17.5 [facility] Comment on above: Performed By: #### 2 95776 #### [facility],[address] [place] [address] 77260 Lymphocytes (Bld) [#/Vol] 1.30 x10EE3/UL Normal 0.80 - 2.80 [facility] Comment on above: Performed By: #### 2 02145 #### [facility],[address] [place], [place] [address] Lymphocytes/100 WBC (Bld) 20.1 % Normal 20.0 - 45.0 [facility] Comment on above: Performed By: #### 2 05100 #### [facility],[address] [place], [place] [id number] MANUAL DIFF N/A Normal [facility] Comment on above: Performed By: #### 2 68177 #### [facility],[address] [place] [address] 13251 MCH (RBC) [Entitic mass] 30 pg Normal 27 - 33 [facility] Comment on above: Performed By: #### 2 19170 #### [facility],[address] [place] [address] 07384 MCHC (RBC) [Mass/Vol] 34 X10 3 Normal 32 - 36 [facility] Comment on above: Performed By: #### 2 95870 #### [facility],[address] [place] [address] 00204 MCV (RBC) [Entitic vol] 88 fL Normal 81 - 98 [facility] Comment on above: Performed By: #### 2 41909 #### [facility],[address] [place] [address] 26577 Monocytes (Bld) [#/Vol] 0.90 x10EE3/UL Normal 0. 20 - 1.00 [facility] Comment on above: Performed By: #### 2 75334 #### [facility],[address] [place] [address] 40572 MONOS % 13.7 % High 0.0 - 10.0 [facility] Comment on above: Performed By: #### 2 23729 #### [facility],[address] [place] [address] 75713 Morphology [place] (Bld) [Interp] N/A Normal [facility] Comment on above: Performed By: #### 2 80770 #### [address] [address] Neutrophils (Bld) [#/Vol] 3.80 x10EE3/UL Normal 1.50 - 7.10 [facility] Comment on above: Performed By: #### 2 78861 #### [address] [id number] Neutrophils/100 WBC (Bld) 59.2 % Normal 46.0 - 76.0 [facility] Comment on above: Performed By: #### 2 05387 #### [address] [address] Platelet mean volume (Bld) [Entitic vol] 7.8 fL Normal 6.4 - 10.5 [facility] Comment on above: Result Comment: AUTO MATED DIFFERENTIAL Performed By: #### 2 95979 #### [address] [address] Platelets (Bld) [#/Vol] 291 x10EE3/UL Normal 150 - 450 [facility] Comment on above: Performed By: #### 2 36532 #### [facility],[address] [place] [address] 04764 RBC (Bld) [#/Vol] 4.57 x 10EE6/UL Normal 4.50 - 6.00 [facility] Comment on above: Performed By: #### 2 70985 #### [facility],[address] [place] [address] 77267 WBC (Bld) [#/Vol] 6.4 x 10EE3/UL Normal 4.5 - 10.8 [facility] Comment on above: Performed By: #### 2 55931 #### [facility],[address] [place] [address] 34697 LITHIUMon 03-10-2020 [place] [Moles/Vol] 0.8 mmol/L Normal 0.6 - 1.2 [facility] Comment on above: Performed By: #### 2 08687 #### [facility],[address] [place] [address] 83683 RENAL FUNCTION PANEL WITH eG FRon 03-10-2020 Age - Reported 54 years Normal [facility] Comment on above: Performed By: #### 2 50071 ####[facility],[address] [place] [address] 85148 Albumin [Mass/Vol] 3.5 g/dL Normal 3.4 - 4.8 [facility] Comment on above: Performed By: #### 2 69528 ####[facility],[address] [place] [address] 79310 B/C RATIO 8 ratio Normal 0 - 30 [facility] Comment on above: Performed By: #### 2 24393 ####[facility],[address] [place] [address] 77266 Calcium [Mass/Vol] 9.4 mg/dL Normal 8.6 - 10.2 [facility] Comment on above: Performed By: #### 2 68126 ####[facility],[address] [place] [address] 66026 Chloride [Moles/Vol] 106 mmol/L Normal 98 - 107 [facility] Comment on above: Performed By: #### 2 99545 ####[facility],[address] [place] [address] 75599 CO2 [Moles/Vol] 26.1 mmol/L Normal 21.0 - 31.0 [facility] Comment on above: Performed By: #### 2 22845 ####[address] [address] Creatinine [Mass/Vol] 2.5 mg/dL High 0.7 - 1.3 [facility] Comment on above: Performed By: #### 2 68667 ####[address] [address] GFR/1.73 sq M predicted among non-blacks MDRD (S/P/Bld) [Vol rate/Area] 33 ML/MINUTE Low 60 - 999 [facility] Comment on above: Result Comment: ACCO RDING TO THE NATIONAL KIDNEY DISEASE EDUCATION PROGRAM(NKDE), A NORMAL eGFR IS A VALUE GREATER THAN OR EQUAL TO 60 ML/MIN/1.73 SQ METERS. CHRONIC KIDNEY DISEASE: <60mL/MIN/1.73 SQ METERS KIDNEY FAILURE: <15mL/MIN/1.73 SQ METERS THIS TEST SHOULD ONLY BE USED FOR PATIENTS 18 YEARS OF AGE AND OLDER. Performed By: #### 2 51173 ####[address] [address] GFR/1.73 sq M predicted among non-blacks MDRD (S/P/Bld) [Vol rate/Area] 27 ML/MINUTE Low 60 - 999 [facility] Comment on above: Performed By: #### 2 66937 ####[facility],[address] [place] [address] 57827 Glucose [Mass/Vol] 114 mg/dL High 74 - 106 [facility] Comment on above: Performed By: #### 2 03451 ####[address] [address] Phosphate [Mass/Vol] 4.6 mg/dL Normal 2.7 - 4.9 [facility] Comment on above: Performed By: #### 2 14514 ####[address] [address] Potassium [Moles/Vol] 3.9 mmol/L Normal 3.5 - 5.1 [facility] Comment on above: Performed By: #### 2 89330 ####[facility],[address] [place] [address] 96516 RENAL FUNCTION PANEL WITH eGFR Normal [facility] Comment on above: Result Comment: JESSICA L FUNCTION PANEL Performed By: #### 2 66363 ####[facility],[address] [place] [address] 98873 Sodium [Moles/Vol] 139 mmol/L Normal 136 - 145 [facility] Comment on above: Performed By: #### 2 52770 ####[facility],[address] [place] [address] Urea nitrogen [Mass/Vol] 21 mg/dL High 6 - 20 [facility] Comment on above: Performed By: #### 2 94350 ####[facility],[address] [place] [address] 18228 CBC + DIFFon 02-04-2020 Basophils (Bld) [#/Vol] 0.10 x10EE3/UL Normal 0. 00 - 0.10 [facility] Comment on above: Performed By: #### 2 96468 #### [facility],[address] [place] [address] 47153 Basophils/100 WBC (Bld) 1.3 % Normal 0.0 - 2.0 [facility] Comment on above: Performed By: #### 2 76835 #### [facility],[address] [place] [address] 02043 CBC + DIFF Normal [facility] Comment on above: Result Comment: CBC- COMPLETE BLOOD COUNT Performed By: #### 2 41353 #### [facility],[address] [place] [address] 63851 Eosinophils (Bld) [#/Vol] 0.40 x10EE3/UL Normal 0.00 - 0.50 [facility] Comment on above: Performed By: #### 2 87375 #### [facility],[address] [place], [place] [address] Eosinophils/100 WBC (Bld) 5.6 % Normal 0.0 - 7.0 [facility] Comment on above: Performed By: #### 2 25505 #### [facility],[address] [place] [address] Erythrocyte distribution width (RBC) [Ratio] 13.2 % Normal 12.0 - 15.6 [facility] Comment on above: Performed By: #### 2 33989 #### [facility],[address] [place] [address] Hematocrit (Bld) [Volume fraction] 38.7 % Low 40.0 - 52.0 [facility] Comment on above: Performed By: #### 2 38063 #### [facility],[address] [place] [address] Hemoglobin (Bld) [Mass/Vol] 13.2 g/dL Normal 13.0 - 17.5 [facility] Comment on above: Performed By: #### 2 45818 #### [facility],[address] [place], [place] [id number] Lymphocytes (Bld) [#/Vol] 1.40 x10EE3/UL Normal 0.80 - 2.80 [facility] Comment on above: Performed By: #### 2 19420 #### [facility],[address] [place], [place] [address] Lymphocytes/100 WBC (Bld) 18.1 % Low 20.0 - 45.0 [facility] Comment on above: Performed By: #### 2 94164 #### [facility],[address] [place], [place] [id number] MANUAL DIFF N/A Normal [facility] Comment on above: Performed By: #### 2 57189 #### [facility],[address],[place] [address] MCH (RBC) [Entitic mass] 30 pg Normal 27 - 33 [facility] Comment on above: Performed By: #### 2 33573 #### [facility],[address] [place] [address] 72835 MCHC (RBC) [Mass/Vol] 34 X10 3 Normal 32 - 36 [facility] Comment on above: Performed By: #### 2 95283 #### [facility],[address] [place] [address] 88746 MCV (RBC) [Entitic vol] 88 fL Normal 81 - 98 [facility] Comment on above: Performed By: #### 2 30518 #### [facility],[address] [place] [address] 64420 Monocytes (Bld) [#/Vol] 1.10 x10EE3/UL High 0. 20 - 1.00 [facility] Comment on above: Performed By: #### 2 70491 #### [facility],[address] [place] [address] 61137 MONOS % 13.6 % High 0.0 - 10.0 [facility] Comment on above: Performed By: #### 2 31116 #### [facility],[address] [place] [address] 37935 Morphology [place] (Bld) [Interp] N/A Normal [facility] Comment on above: Performed By: #### 2 45257 #### [facility],[address] [place] [address] 11556 Neutrophils (Bld) [#/Vol] 4.80 x10EE3/UL Normal 1.50 - 7.10 [facility] Comment on above: Performed By: #### 2 16759 #### [facility],[address] [place] [address] 97849 Neutrophils/100 WBC (Bld) 61.4 % Normal 46.0 - 76.0 [facility] Comment on above: Performed By: #### 2 40484 #### [facility],[address] [place], [place] [address] Platelet mean volume (Bld) [Entitic vol] 7.7 fL Normal 6.4 - 10.5 [facility] Comment on above: Result Comment: AUTO MATED DIFFERENTIAL Performed By: #### 2 24379 #### [address] [address] Platelets (Bld) [#/Vol] 298 x10EE3/UL Normal 150 - 450 [facility] Comment on above: Performed By: #### 2 69116 #### [facility],[address] [place] [address] 35475 RBC (Bld) [#/Vol] 4.40 x 10EE6/UL Low 4.50 - 6.00 [facility] Comment on above: Performed By: #### 2 23500 #### [place] [id number] WBC (Bld) [#/Vol] 7.8 x 10EE3/UL Normal 4.5 - 10.8 [facility] Comment on above: Performed By: #### 2 93860 #### [facility],[address] [place], [place] [id number] CULTURE URINEon 02-04-2020 CULTURE URINE CULTURE URINE _URINE CULTURE_ M I C R O B I O L O G Y R E P O R T FINAL ------- Antimicrobial Susceptibility and Organism Identification Report -------- Specimen Number : [id number] Requested : 02/04/20 Specimen Source : URINE Collected : 02/04/20 02:50 [place] of Isolation : MEME HUANG Received : 02/04/20 02:50 Requesting Physician : FLORECITA -- Patient/Specimen Tests and Comments Specimen Comments -------- -------- FINAL REPORT: NO GROWTH AT 48 HOURS -- Tech : Source : URINE ID # : [id number] FINAL Report Date : / / : Collected : 02/04/20 02:50 02/06/20.1208.KLS. 02/05/20.0910.JLN. 02/06/20.1208.KLS.COMPLETE Normal [facility] Comment on above: Performed By: #### 2 76316 #### [facility],[address] [place] [address] RENAL FUNCTION PANEL WITH eG FRon 02-04-2020 Age - Reported 54 years Normal [facility] Comment on above: Performed By: #### 2 68440 #### [facility],[address] [place] [address] 80838 Albumin [Mass/Vol] 3.5 g/dL Normal 3.4 - 4.8 [facility] Comment on above: Performed By: #### 2 23428 #### [facility],[address] [place] [address] 47688 B/C RATIO 9 ratio Normal 0 - 30 [facility] Comment on above: Performed By: #### 2 80797 #### [facility],[address] [place] [address] 40560 Calcium [Mass/Vol] 9.4 mg/dL Normal 8.6 - 10.2 [facility] Comment on above: Performed By: #### 2 97604 #### [facility],[address] [place] [address] 52878 Chloride [Moles/Vol] 107 mmol/L Normal 98 - 107 [facility] Comment on above: Performed By: #### 2 75467 #### [facility],[address] [place] [address] 13512 CO2 [Moles/Vol] 25.6 mmol/L Normal 21.0 - 31.0 [facility] Comment on above: Performed By: #### 2 40238 #### [facility],[address] [place] [address] 01562 Creatinine [Mass/Vol] 2.4 mg/dL High 0.7 - 1.3 [facility] Comment on above: Performed By: #### 2 47546 #### [facility],[address] [place] [address] 11057 GFR/1.73 sq M predicted among non-blacks MDRD (S/P/Bld) [Vol rate/Area] 28 ML/MINUTE Low 60 - 999 [facility] Comment on above: Performed By: #### 2 67040 #### [facility],[address] [place] [address] 49545 GFR/1.73 sq M predicted among non-blacks MDRD (S/P/Bld) [Vol rate/Area] 34 ML/MINUTE Low 60 - 999 [facility] Comment on above: Result Comment: ACCO RDING TO THE NATIONAL KIDNEY DISEASE EDUCATION PROGRAM(NKDE), A NORMAL eGFR IS A VALUE GREATER THAN OR EQUAL TO 60 ML/MIN/1.73 SQ METERS. CHRONIC KIDNEY DISEASE: <60mL/MIN/1.73 SQ METERS KIDNEY FAILURE: <15mL/MIN/1.73 SQ METERS THIS TEST SHOULD ONLY BE USED FOR PATIENTS 18 YEARS OF AGE AND OLDER. Performed By: #### 2 29022 #### [facility],[address] [place] [address] 76983 Glucose [Mass/Vol] 114 mg/dL High 74 - 106 [facility] Comment on above: Performed By: #### 2 19204 #### [facility],[address] [place] [address] 23958 Phosphate [Mass/Vol] 4.5 mg/dL Normal 2.7 - 4.9 [facility] Comment on above: Performed By: #### 2 21075 #### [facility],[address] [place] [address] 99516 Potassium [Moles/Vol] 3.8 mmol/L Normal 3.5 - 5.1 [facility] Comment on above: Performed By: #### 2 43700 #### [facility],[address] [place] [address] 43822 RENAL FUNCTION PANEL WITH eGFR Normal [facility] Comment on above: Result Comment: JESSICA L FUNCTION PANEL Performed By: #### 2 70923 #### [facility],[address] [place] [address] 73524 Sodium [Moles/Vol] 139 mmol/L Normal 136 - 145 [facility] Comment on above: Performed By: #### 2 45202 #### [facility],[address] [place] [address] 10557 Urea nitrogen [Mass/Vol] 22 mg/dL High 6 - 20 [facility] Comment on above: Performed By: #### 2 52930 #### [facility],[address] [place], [place] [id number] URINALYSISon 02-04-2020 Amorphous NONE Normal [facility] Comment on above: Performed By: #### 2 32292 #### [facility],[address] [place], [place] [id number] Bacteria LM.HPF (Urine sed) [#/Area] NONE Normal [facility] Comment on above: Performed By: #### 2 17675 #### [facility],[address] [place] [address] Bilirubin [Mass/Vol] Negative Normal NORMAL: NEGATIVE [facility] Comment on above: Performed By: #### 2 80481 #### [facility],[address] [place] [address] Blood Negative Normal NORMAL: NEGATIVE [facility] Comment on above: Performed By: #### 2 12133 #### [facility],[address] [place] [address] Casts LM.LPF (Urine sed) [#/Area] NONE Normal [facility] Comment on above: Performed By: #### 2 04734 #### [facility],[address] [place] [address] Clarity (U) clear Normal NORMAL: CLEAR [facility] Comment on above: Performed By: #### 2 96245 #### [facility],[address] [place], [place] [id number] Color (U) yellow Normal NORMAL: YELLOW [facility] Comment on above: Performed By: #### 2 36851 #### [facility],[address] [place], [place] [id number] Crystals LM Nom (Urine sed) NONE Normal [facility] Comment on above: Performed By: #### 2 89163 #### [facility],[address] [place] [address] Epi Cells NONE Normal [facility] Comment on above: Performed By: #### 2 55602 #### [facility],[address] [place] [address] 55198 Glucose [Mass/Vol] NORM Normal NORMAL: NORMAL [facility] Comment on above: Performed By: #### 2 77131 #### [facility],[address] [place] [address] 78531 Ketone Negative Normal NORMAL: NEGATIVE [facility] Comment on above: Performed By: #### 2 44203 #### [facility],[address] [place], [place] [id number] Microscopic SEE BELOW Normal [facility] Comment on above: Result Comment: MICR OSCOPIC Performed By: #### 2 65954 #### [facility],[address] [place] [address] Mucous NONE Normal [facility] Comment on above: Performed By: #### 2 86729 #### [facility],[address] [place] [address] 90704 Nitrite Ql (U) Negative Normal NORMAL: NEGATIVE [facility] Comment on above: Performed By: #### 2 70623 #### [facility],[address] [place], [place] [id number] pH (Bld) 6 Normal NORMAL: 5.0-8.0 [facility] Comment on above: Performed By: #### 2 00263 #### [facility],[address] [place] [address] 25190 Protein (U) [Mass/Vol] Negative Normal JENN L: NEGATIVE [facility] Comment on above: Performed By: #### 2 79599 #### [facility],[address] [place] [address] 13690 Rbc NONE Normal 0-3/hpf [facility] Comment on above: Performed By: #### 2 00613 #### [facility],[address] [place], [place] [id number] Sp [place] 1.015 Normal NORMAL: 1.010-1.03 0 [facility] Comment on above: Performed By: #### 2 20108 #### [facility],[address] [place], [place] [id number] Specimen type Nom (Spec) Clean catch Normal [facility] Comment on above: Performed By: #### 2 21645 #### [facility],[address] [place] [address] 21720 Urobilinog NORM Normal NORMAL: NORMAL [facility] Comment on above: Performed By: #### 2 18522 #### [facility],[address] [place] [address] 02768 Wbc 1-5 Normal 0-5/hpf [facility] Comment on above: Performed By: #### 2 89891 #### [facility],[address] [place] [address] 76729 WBC (Bld) [#/Vol] 25 Abnormal NORMAL: NEGATIVE [facility] Comment on above: Performed By: #### 2 82839 #### [facility],[address] [place] [address] 41956 Yeast LM Ql (Urine sed) NONE Normal [facility] Comment on above: Performed By: #### 2 84390 #### [facility],[address] [place] [address] 57615 URINE CREATININE AND PROTEIN RATIOon 02-04-2020 CREATININE UR 143.6 mg/dl Normal [facility] Comment on above: Performed By: #### 2 48880 #### [facility],[address] [place] [address] [address] PC RATIO 0.05 mg/dL Normal 0.00 - 10.00 [facility] Comment on above: Performed By: #### 2 01051 #### [facility],[address] [place] [address] 94867 Protein (U) [Mass/Vol] 7.00 mg/dL Normal 0.00 - 10.00 [facility] Comment on above: Performed By: #### 2 46603 #### [facility],[address] [place] [address] 54375 ALBUMIN PLASMAon 01-07-2020 Albumin [Mass/Vol] 3.7 g/dL Normal 3.4 - 4.8 [facility] Comment on above: Performed By: #### 2 85940 #### [facility],[address] [place] [address] 19944 BMP with eGFRon 01-07-2020 Age - Reported 54 years Normal [facility] Comment on above: Performed By: #### 2 92932 #### [facility],[address] [place] [address] 90034 Anion gap [Moles/Vol] 13 mmol/L Normal 10 - 20 [facility] Comment on above: Performed By: #### 2 49921 #### [facility],[address] [place] [address] 55256 Calcium [Mass/Vol] 9.3 mg/dL Normal 8.6 - 10.2 [facility] Comment on above: Performed By: #### 2 11872 #### [facility],[address] [place] [address] 59974 Chloride [Moles/Vol] 108 mmol/L High 98 - 107 [facility] Comment on above: Performed By: #### 2 61909 #### [facility],[address] [place] [address] 10857 CO2 [Moles/Vol] 26.1 mmol/L Normal 21.0 - 31.0 [facility] Comment on above: Performed By: #### 2 53405 #### [facility],[address] [place] [address] 37562 Creatinine [Mass/Vol] 2.0 mg/dL High 0.7 - 1.3 [facility] Comment on above: Performed By: #### 2 91387 #### [facility],[address],[place] [address] GFR/1.73 sq M predicted among non-blacks MDRD (S/P/Bld) [Vol rate/Area] Normal [facility] Comment on above: Result Comment: BASI C METABOLIC PANEL Performed By: #### 2 48931 #### [facility],[address] [place] [address] 94823 GFR/1.73 sq M predicted among non-blacks MDRD (S/P/Bld) [Vol rate/Area] 42 ML/MINUTE Low 60 - 999 [facility] Comment on above: Result Comment: ACCO RDING TO THE NATIONAL KIDNEY DISEASE EDUCATION PROGRAM(NKDE), A NORMAL eGFR IS A VALUE GREATER THAN OR EQUAL TO 60 ML/MIN/1.73 SQ METERS. CHRONIC KIDNEY DISEASE: <60mL/MIN/1.73 SQ METERS KIDNEY FAILURE: <15mL/MIN/1.73 SQ METERS THIS TEST SHOULD ONLY BE USED FOR PATIENTS 18 YEARS OF AGE AND OLDER. Performed By: #### 2 18791 #### [facility],[address] [place] [address] 61645 GFR/1.73 sq M predicted among non-blacks MDRD (S/P/Bld) [Vol rate/Area] 35 ML/MINUTE Low 60 - 999 [facility] Comment on above: Performed By: #### 2 07443 #### [facility],[address] [place] [address] 64022 Glucose [Mass/Vol] 99 mg/dL Normal 74 - 106 [facility] Comment on above: Performed By: #### 2 86533 #### [facility],[address] [place] [address] 83598 Potassium [Moles/Vol] 3.8 mmol/L Normal 3.5 - 5.1 [facility] Comment on above: Performed By: #### 2 99725 #### [facility],[address] [place] [address] 91957 Sodium [Moles/Vol] 143 mmol/L Normal 136 - 145 [facility] Comment on above: Performed By: #### 2 51884 #### [facility],[address] [place] [address] Urea nitrogen [Mass/Vol] 22 mg/dL High 6 - 20 [facility] Comment on above: Performed By: #### 2 24043 #### [facility],[address] [place] [address] CBC + DIFFon 01-07-2020 Basophils (Bld) [#/Vol] 0.10 x10EE3/UL Normal 0. 00 - 0.10 [facility] Comment on above: Performed By: #### 2 34727 #### [facility],[address] [place] [address] Basophils/100 WBC (Bld) 1.0 % Normal 0.0 - 2.0 [facility] Comment on above: Performed By: #### 2 10823 #### [facility],[address] [place] [address] CBC + DIFF Normal [facility] Comment on above: Result Comment: CBC- COMPLETE BLOOD COUNT Performed By: #### 2 57325 #### [facility],[address] [place] [address] Eosinophils (Bld) [#/Vol] 0.30 x10EE3/UL Normal 0.00 - 0.50 [facility] Comment on above: Performed By: #### 2 32376 #### [facility],[address] [place], [place] [id number] Eosinophils/100 WBC (Bld) 3.3 % Normal 0.0 - 7.0 [facility] Comment on above: Performed By: #### 2 02872 #### [place] [address] Erythrocyte distribution width (RBC) [Ratio] 13.1 % Normal 12.0 - 15.6 [facility] Comment on above: Performed By: #### 2 91294 #### [facility],[address] [place], [place] [id number] Hematocrit (Bld) [Volume fraction] 39.0 % Low 40.0 - 52.0 [facility] Comment on above: Performed By: #### 2 92548 #### [facility],[address] [place] [address] 06083 Hemoglobin (Bld) [Mass/Vol] 13.4 g/dL Normal 13.0 - 17.5 [facility] Comment on above: Performed By: #### 2 95863 #### [facility],[address] [place] [address] 53759 Lymphocytes (Bld) [#/Vol] 1.90 x10EE3/UL Normal 0.80 - 2.80 [facility] Comment on above: Performed By: #### 2 68644 #### [facility],[address] [place] [address] 79672 Lymphocytes/100 WBC (Bld) 20.6 % Normal 20.0 - 45.0 [facility] Comment on above: Performed By: #### 2 94399 #### [facility],[address] [place] [address] 63280 MANUAL DIFF N/A Normal [facility] Comment on above: Performed By: #### 2 34823 #### [facility],[address] [place] [address] 55379 MCH (RBC) [Entitic mass] 30 pg Normal 27 - 33 [facility] Comment on above: Performed By: #### 2 42051 #### [facility],[address] [place] [address] 20213 MCHC (RBC) [Mass/Vol] 34 X10 3 Normal 32 - 36 [facility] Comment on above: Performed By: #### 2 20634 #### [facility],[address] [place] [address] 76819 MCV (RBC) [Entitic vol] 88 fL Normal 81 - 98 [facility] Comment on above: Performed By: #### 2 28519 #### [facility],[address] [place] [address] 23016 Monocytes (Bld) [#/Vol] 0.90 x10EE3/UL Normal 0. 20 - 1.00 [facility] Comment on above: Performed By: #### 2 10235 #### [address] [address] MONOS % 10.0 % Normal 0.0 - 10.0 [facility] Comment on above: Performed By: #### 2 15252 #### [address] [address] Morphology Crispin (Bld) [Interp] N/A Normal [facility] Comment on above: Performed By: #### 2 65951 #### [address] [address] Neutrophils (Bld) [#/Vol] 5.90 x10EE3/UL Normal 1.50 - 7.10 [facility] Comment on above: Performed By: #### 2 65701 #### [address] [address] Neutrophils/100 WBC (Bld) 65.1 % Normal 46.0 - 76.0 [facility] Comment on above: Performed By: #### 2 66464 #### [address] [address] Platelet mean volume (Bld) [Entitic vol] 7.7 fL Normal 6.4 - 10.5 [facility] Comment on above: Result Comment: AUTO MATED DIFFERENTIAL Performed By: #### 2 08751 #### [address] [address] Platelets (Bld) [#/Vol] 260 x10EE3/UL Normal 150 - 450 [facility] Comment on above: Performed By: #### 2 96974 #### [facility],[address] [place] [address] 00308 RBC (Bld) [#/Vol] 4.41 x 10EE6/UL Low 4.50 - 6.00 [facility] Comment on above: Performed By: #### 2 23002 #### [facility],[address] [place] [address] 75460 WBC (Bld) [#/Vol] 9.1 x 10EE3/UL Normal 4.5 - 10.8 [facility] Comment on above: Performed By: #### 2 13804 #### [facility],[address] [place], [place] [id number] CULTURE URINEon 01-07-2020 CULTURE URINE CULTURE URINE _URINE CULTURE_ M I C R O B I O L O G Y R E P O R T FINAL ------- Antimicrobial Susceptibility and Organism Identification Report -------- Specimen Number : [id number] Requested : 01/07/20 Specimen Source : CLEAN CATCH URINE Collected : 01/07/20 02:30 Ar[place] of Isolation : MEME HUANG Received : 01/07/20 02:30 Requesting Physician : FLORECITA -- Patient/Specimen Tests and Comments Specimen Comments -------- -------- FINAL REPORT: NO GROWTH AT 48 HOURS -- Tech : Source : CLEAN CATCH URINE ID # : [id number] FINAL Report Date : / / : Collected : 01/07/20 02:30 01/09/20.1027.BKO. 01/08/20.1302.KLS. 01/09/20.1027.BKO.COMPLETE 01/09/20.1027.BKO.to [facility] via fax Normal [facility] Comment on above: Performed By: #### 2 09340 #### [facility],[address] [place], [place] [id number] LITHIUMon 01-07-2020 [place] [Moles/Vol] 0.6 mmol/L Normal 0.6 - 1.2 [facility] Comment on above: Performed By: #### 2 80604 #### [facility],[address] [place] [address] 85012 URINALYSISon 01-07-2020 Bilirubin [Mass/Vol] Negative Normal NORMAL: NEGATIVE [facility] Comment on above: Performed By: #### 2 42636 #### [facility],[address] [place] [address] 40652 Blood Negative Normal NORMAL: NEGATIVE [facility] Comment on above: Performed By: #### 2 83674 #### [facility],[address] [place] [address] 13996 Clarity (U) clear Normal NORMAL: CLEAR [facility] Comment on above: Performed By: #### 2 26625 #### [facility],[address] [place] [address] 42642 Color (U) p.yel Normal NORMAL: YELLOW [facility] Comment on above: Performed By: #### 2 12687 #### [facility],[address] [place] [address] 92356 Glucose [Mass/Vol] NORM Normal NORMAL: NORMAL [facility] Comment on above: Performed By: #### 2 28143 #### [facility],[address] [place], [place] [id number] Ketone Negative Normal NORMAL: NEGATIVE [facility] Comment on above: Performed By: #### 2 10260 #### [facility],[address] [place], [place] [id number] Microscopic NOT INDICATED Normal [facility] Comment on above: Performed By: #### 2 23559 #### [facility],[address] [place], [place] [address] Nitrite Ql (U) Negative Normal NORMAL: NEGATIVE [facility] Comment on above: Performed By: #### 2 46775 #### [facility],[address] [place] [address] 52867 pH (Bld) 6.5 Normal NORMAL: 5.0-8.0 [facility] Comment on above: Performed By: #### 2 85001 #### [facility],[address] [place] [address] 64493 Protein (U) [Mass/Vol] Negative Normal JENN L: NEGATIVE [facility] Comment on above: Performed By: #### 2 51809 #### [facility],[address] [place], [place] [id number] Sp [place] 1.010 Normal NORMAL: 1.010-1.03 0 [facility] Comment on above: Performed By: #### 2 62243 #### [facility],[address] [place] [address] Specimen type Nom (Spec) Clean catch Normal [facility] Comment on above: Performed By: #### 2 99292 #### [facility],[address] [place] [address] Urobilinog NORM Normal NORMAL: NORMAL [facility] Comment on above: Performed By: #### 2 66926 #### [facility],[address] [place] [address] WBC (Bld) [#/Vol] Negative Normal NORMAL: NEGATIVE [facility] Comment on above: Performed By: #### 2 44526 #### [facility],[address] [place] [address] URINE CREATININE AND PROTEIN RATIOon 01-07-2020 CREATININE UR 75.6 mg/dl Normal [facility] Comment on above: Performed By: #### 2 52593 #### [facility],[address] [place] [address] PC RATIO 0.07 mg/dL Normal 0.00 - 10.00 [facility] Comment on above: Performed By: #### 2 15713 #### [facility],[address] [place], [place] [id number] Protein (U) [Mass/Vol] mg/dL Normal 0.00 - 10.00 [facility] Comment on above: Performed By: #### 2 06665 #### [facility],[address] [place], [place] [address] CBC + DIFFon 12-10-2019 Basophils (Bld) [#/Vol] 0.10 x10EE3/UL Normal 0. 00 - 0.10 [facility] Comment on above: Performed By: #### 2 50808 #### [facility],[address] [place] [address] 67368 Basophils/100 WBC (Bld) 0.7 % Normal 0.0 - 2.0 [facility] Comment on above: Performed By: #### 2 02135 #### [facility],[address] [place] [address] 39879 CBC + DIFF Normal [facility] Comment on above: Result Comment: CBC- COMPLETE BLOOD COUNT Performed By: #### 2 10389 #### [facility],[address] [place] [address] 08142 Eosinophils (Bld) [#/Vol] 0.30 x10EE3/UL Normal 0.00 - 0.50 [facility] Comment on above: Performed By: #### 2 14678 #### [facility],[address] [place] [address] 57118 Eosinophils/100 WBC (Bld) 3.2 % Normal 0.0 - 7.0 [facility] Comment on above: Performed By: #### 2 41104 #### [facility],[address] [place] [address] 08283 Erythrocyte distribution width (RBC) [Ratio] 12.7 % Normal 12.0 - 15.6 [facility] Comment on above: Performed By: #### 2 33901 #### [facility],[address] [place] [address] 90139 Hematocrit (Bld) [Volume fraction] 38.7 % Low 40.0 - 52.0 [facility] Comment on above: Performed By: #### 2 67848 #### [facility],[address] [place] [address] 33597 Hemoglobin (Bld) [Mass/Vol] 13.4 g/dL Normal 13.0 - 17.5 [facility] Comment on above: Performed By: #### 2 34221 #### [facility],[address] [place] [address] 97555 Lymphocytes (Bld) [#/Vol] 2.10 x10EE3/UL Normal 0.80 - 2.80 [facility] Comment on above: Performed By: #### 2 80548 #### [place] [address] Lymphocytes/100 WBC (Bld) 21.3 % Normal 20.0 - 45.0 [facility] Comment on above: Performed By: #### 2 26246 #### [facility],[address] [place] [address] MANUAL DIFF N/A Normal [facility] Comment on above: Performed By: #### 2 01322 #### [facility],[address] [place] [address] MCH (RBC) [Entitic mass] 31 pg Normal 27 - 33 [facility] Comment on above: Performed By: #### 2 42929 #### [place] [address] MCHC (RBC) [Mass/Vol] 35 X10 3 Normal 32 - 36 [facility] Comment on above: Performed By: #### 2 42074 #### [place] [address] MCV (RBC) [Entitic vol] 89 fL Normal 81 - 98 [facility] Comment on above: Performed By: #### 2 96241 #### [place] [id number] Monocytes (Bld) [#/Vol] 1.00 x10EE3/UL Normal 0. 20 - 1.00 [facility] Comment on above: Performed By: #### 2 15101 #### [place] [id number] MONOS % 10.5 % High 0.0 - 10.0 [facility] Comment on above: Performed By: #### 2 27104 #### [facility],[address] [place], [place] [id number] Morphology [place] (Bld) [Interp] N/A Normal [facility] Comment on above: Performed By: #### 2 12492 #### [facility],[address] [place], [place] [id number] Neutrophils (Bld) [#/Vol] 6.30 x10EE3/UL Normal 1.50 - 7.10 [facility] Comment on above: Performed By: #### 2 87378 #### [facility],[address] [place], [place] [address] Neutrophils/100 WBC (Bld) 64.3 % Normal 46.0 - 76.0 [facility] Comment on above: Performed By: #### 2 80922 #### [facility],[address] [place] [address] Platelet mean volume (Bld) [Entitic vol] 7.4 fL Normal 6.4 - 10.5 [facility] Comment on above: Result Comment: AUTO MATED DIFFERENTIAL Performed By: #### 2 19159 #### [address] [address] Platelets (Bld) [#/Vol] 254 x10EE3/UL Normal 150 - 450 [facility] Comment on above: Performed By: #### 2 84555 #### [address] [address] RBC (Bld) [#/Vol] 4.34 x 10EE6/UL Low 4.50 - 6.00 [facility] Comment on above: Performed By: #### 2 68221 #### [facility],[address] [place] [address] 25546 WBC (Bld) [#/Vol] 9.8 x 10EE3/UL Normal 4.5 - 10.8 [facility] Comment on above: Performed By: #### 2 72539 #### [address] [address] CULTURE URINEon 12-10-2019 CULTURE URINE CULTURE URINE _URINE CULTURE_ M I C R O B I O L O G Y R E P O R T FINAL ------- Antimicrobial Susceptibility and Organism Identification Report -------- Specimen Number : [id number] Requested : 12/09/19 Specimen Source : CLEAN CATCH URINE Collected : 12/09/19 23:45 [employer] of Isolation : REJITerra HUANG Received : 12/09/19 23:45 Requesting Physician : FLORECITA -- Patient/Specimen Tests and Comments Specimen Comments -------- -------- FINAL REPORT: NO GROWTH AT 48 HOURS -- Tech : Source : CLEAN CATCH URINE ID # : [id number] FINAL Report Date : / / : Collected : 12/09/19 23:45 12/12/19.BKO. 12/11/19.837.BKO. 12/12/19.BKO.COMPLETE 12/12/19.BKO.to [facility] via fax Normal [facility] Comment on above: Performed By: #### 2 60550 #### [facility],[address] [place], [place] [id number] LITHIUMon 12-10-2019 [place] [Moles/Vol] 0.6 mmol/L Normal 0.6 - 1.2 [facility] Comment on above: Performed By: #### 2 08925 #### [facility],[address] [place], [place] [id number] RENAL FUNCTION PANEL WITH eG FRon 12-10-2019 Age - Reported 54 years Normal [facility] Comment on above: Performed By: #### 2 08775 #### [facility],[address] [place] [address] 24850 Albumin [Mass/Vol] 3.6 g/dL Normal 3.4 - 4.8 [facility] Comment on above: Performed By: #### 2 54121 #### [facility],[address] [place] [address] 51393 B/C RATIO 12 ratio Normal 0 - 30 [facility] Comment on above: Performed By: #### 2 79664 #### [facility],[address] [place] [address] 82727 Calcium [Mass/Vol] 9.4 mg/dL Normal 8.6 - 10.2 [facility] Comment on above: Performed By: #### 2 45537 #### [facility],[address] [place], [place] [id number] Chloride [Moles/Vol] 105 mmol/L Normal 98 - 107 [facility] Comment on above: Performed By: #### 2 55402 #### [facility],[address] [place] [address] 14358 CO2 [Moles/Vol] 24.4 mmol/L Normal 21.0 - 31.0 [facility] Comment on above: Performed By: #### 2 28197 #### [facility],[address] [place] [address] 95917 Creatinine [Mass/Vol] 1.9 mg/dL High 0.7 - 1.3 [facility] Comment on above: Performed By: #### 2 61783 #### [facility],[address] [place] [address] 04859 GFR/1.73 sq M predicted among non-blacks MDRD (S/P/Bld) [Vol rate/Area] 37 ML/MINUTE Low 60 - 999 [facility] Comment on above: Performed By: #### 2 50226 #### [facility],[address] [place] [address] 66227 GFR/1.73 sq M predicted among non-blacks MDRD (S/P/Bld) [Vol rate/Area] 45 ML/MINUTE Low 60 - 999 [facility] Comment on above: Result Comment: ACCO RDING TO THE NATIONAL KIDNEY DISEASE EDUCATION PROGRAM(NKDE), A NORMAL eGFR IS A VALUE GREATER THAN OR EQUAL TO 60 ML/MIN/1.73 SQ METERS. CHRONIC KIDNEY DISEASE: <60mL/MIN/1.73 SQ METERS KIDNEY FAILURE: <15mL/MIN/1.73 SQ METERS THIS TEST SHOULD ONLY BE USED FOR PATIENTS 18 YEARS OF AGE AND OLDER. Performed By: #### 2 52850 #### [facility],[address] [place] [address] 20005 Glucose [Mass/Vol] 106 mg/dL Normal 74 - 106 [facility] Comment on above: Performed By: #### 2 48036 #### [facility],[address] [place] [address] 84191 Phosphate [Mass/Vol] 5.0 mg/dL High 2.7 - 4.9 [facility] Comment on above: Performed By: #### 2 83396 #### [facility],[address] [place] [address] 91354 Potassium [Moles/Vol] 3.4 mmol/L Low 3.5 - 5.1 [facility] Comment on above: Performed By: #### 2 92618 #### [facility],[address] [place] [address] 34568 RENAL FUNCTION PANEL WITH eGFR Normal [facility] Comment on above: Result Comment: JESSICA L FUNCTION PANEL Performed By: #### 2 03194 #### [facility],[address] [place] [address] 61145 Sodium [Moles/Vol] 139 mmol/L Normal 136 - 145 [facility] Comment on above: Performed By: #### 2 77969 #### [facility],[address] [place] [address] 98857 Urea nitrogen [Mass/Vol] 23 mg/dL High 6 - 20 [facility] Comment on above: Performed By: #### 2 50869 #### [facility],[address] [place] [address] 59409 URINALYSISon 12-10-2019 Bilirubin [Mass/Vol] Negative Normal NORMAL: NEGATIVE [facility] Comment on above: Performed By: #### 2 16859 #### [facility],[address] [place] [address] 98004 Blood Negative Normal NORMAL: NEGATIVE [facility] Comment on above: Performed By: #### 2 69460 #### [facility],[address] [place] [address] 33251 Clarity (U) clear Normal NORMAL: CLEAR [facility] Comment on above: Performed By: #### 2 90664 #### [facility],[address] [place] [address] 83282 Color (U) p.yel Normal NORMAL: YELLOW [facility] Comment on above: Performed By: #### 2 58327 #### [facility],[address] [place] [address] 05716 Glucose [Mass/Vol] NORM Normal NORMAL: NORMAL [facility] Comment on above: Performed By: #### 2 67026 #### [facility],[address] [place], [place] [id number] Ketone Negative Normal NORMAL: NEGATIVE [facility] Comment on above: Performed By: #### 2 26112 #### [facility],[address] [place] [address] Microscopic NOT INDICATED Normal [facility] Comment on above: Performed By: #### 2 40275 #### [facility],[address] [place], [place] [id number] Nitrite Ql (U) Negative Normal NORMAL: NEGATIVE [facility] Comment on above: Performed By: #### 2 25736 #### [facility],[address] [place] [address] pH (Bld) 6 Normal NORMAL: 5.0-8.0 [facility] Comment on above: Performed By: #### 2 78931 #### [facility],[address] [place], [place] [id number] Protein (U) [Mass/Vol] Negative Normal JENN L: NEGATIVE [facility] Comment on above: Performed By: #### 2 31341 #### [facility],[address] [place] [address] 83213 Sp [place] 1.015 Normal NORMAL: 1.010-1.03 0 [facility] Comment on above: Performed By: #### 2 53137 #### [facility],[address] [place] [address] 94250 Specimen type Nom (Spec) Clean catch Normal [facility] Comment on above: Performed By: #### 2 71560 #### [facility],[address] [place] [address] 86611 Urobilinog NORM Normal NORMAL: NORMAL [facility] Comment on above: Performed By: #### 2 05103 #### [facility],[address] [place] [address] 05062 WBC (Bld) [#/Vol] Negative Normal NORMAL: NEGATIVE [facility] Comment on above: Performed By: #### 2 87102 #### [facility],[address] [place] [address] 99697 URINE CREATININE AND PROTEIN RATIOon 12-10-2019 CREATININE UR 97.1 mg/dl Normal [facility] Comment on above: Performed By: #### 2 [address] #### [facility],[address] [place] [address] 28658 PC RATIO 0.07 mg/dL Normal 0.00 - 10.00 [facility] Comment on above: Performed By: #### 2 34722 #### [facility],[address] [place] [address] 34092 Protein (U) [Mass/Vol] 7.00 mg/dL Normal 0.00 - 10.00 [facility] Comment on above: Performed By: #### 2 28813 #### [facility],[address] [place] [address] 70198 BMP with eGFRon 11-05-2019 Age - Reported 54 years Normal [facility] Comment on above: Performed By: #### 2 87526 #### [facility],[address] [place] [address] 82741 Anion gap [Moles/Vol] 12 mmol/L Normal 10 - 20 [facility] Comment on above: Performed By: #### 2 75785 #### [facility],[address] [place] [address] 70642 Chloride [Moles/Vol] 105 mmol/L Normal 98 - 107 [facility] Comment on above: Performed By: #### 2 38920 #### [facility],[address] [place] [address] 24336 CO2 [Moles/Vol] 26.8 mmol/L Normal 21.0 - 31.0 [facility] Comment on above: Performed By: #### 2 62020 #### [facility],[address] [place] [address] 59230 GFR/1.73 sq M predicted among non-blacks MDRD (S/P/Bld) [Vol rate/Area] 38 ML/MINUTE Low 60 - 999 [facility] Comment on above: Result Comment: ACCO RDING TO THE NATIONAL KIDNEY DISEASE EDUCATION PROGRAM(NKDE), A NORMAL eGFR IS A VALUE GREATER THAN OR EQUAL TO 60 ML/MIN/1.73 SQ METERS. CHRONIC KIDNEY DISEASE: <60mL/MIN/1.73 SQ METERS KIDNEY FAILURE: <15mL/MIN/1.73 SQ METERS THIS TEST SHOULD ONLY BE USED FOR PATIENTS 18 YEARS OF AGE AND OLDER. Performed By: #### 2 39953 #### [facility],[address] [place] [address] 23660 GFR/1.73 sq M predicted among non-blacks MDRD (S/P/Bld) [Vol rate/Area] 31 ML/MINUTE Low 60 - 999 [facility] Comment on above: Performed By: #### 2 63413 #### [facility],[address] [place] [address] 75389 GFR/1.73 sq M predicted among non-blacks MDRD (S/P/Bld) [Vol rate/Area] Normal [facility] Comment on above: Result Comment: BASI C METABOLIC PANEL Performed By: #### 2 17782 #### [facility],[address] [place] [address] 34957 Potassium [Moles/Vol] 3.4 mmol/L Low 3.5 - 5.1 [facility] Comment on above: Performed By: #### 2 10923 #### [facility] [place], [place] [id number] Sodium [Moles/Vol] 140 mmol/L Normal 136 - 145 [facility] Comment on above: Performed By: #### 2 15798 #### [facility],[address] [place], [place] [id number] CBC + DIFFon 11-05-2019 Basophils (Bld) [#/Vol] 0.10 x10EE3/UL Normal 0. 00 - 0.10 [facility] Comment on above: Performed By: #### 2 15678 #### [facility],[address] [place] [address] 72368 Basophils/100 WBC (Bld) 0.9 % Normal 0.0 - 2.0 [facility] Comment on above: Performed By: #### 2 41991 #### [facility],[address] [place] [address] CBC + DIFF Normal [facility] Comment on above: Result Comment: CBC- COMPLETE BLOOD COUNT Performed By: #### 2 46918 #### [facility],[address] [place] [address] 80290 Eosinophils (Bld) [#/Vol] 0.40 x10EE3/UL Normal 0.00 - 0.50 [facility] Comment on above: Performed By: #### 2 36966 #### [facility],[address] [place] [address] 37126 Eosinophils/100 WBC (Bld) 3.9 % Normal 0.0 - 7.0 [facility] Comment on above: Performed By: #### 2 93162 #### [facility],[address] [place] [address] 90795 Erythrocyte distribution width (RBC) [Ratio] 12.4 % Normal 12.0 - 15.6 [facility] Comment on above: Performed By: #### 2 66073 #### [facility],[address] [place] [address] 30311 Hematocrit (Bld) [Volume fraction] 39.9 % Low 40.0 - 52.0 [facility] Comment on above: Performed By: #### 2 09889 #### [facility],[address] [place] [address] 61318 Hemoglobin (Bld) [Mass/Vol] 13.3 g/dL Normal 13.0 - 17.5 [facility] Comment on above: Performed By: #### 2 01780 #### [facility],[address] [place] [address] 20968 Lymphocytes (Bld) [#/Vol] 1.90 x10EE3/UL Normal 0.80 - 2.80 [facility] Comment on above: Performed By: #### 2 52947 #### [facility],[address] [place] [address] 09158 Lymphocytes/100 WBC (Bld) 20.3 % Normal 20.0 - 45.0 [facility] Comment on above: Performed By: #### 2 24154 #### [facility],[address] [place] [address] 86663 MANUAL DIFF N/A Normal [facility] Comment on above: Performed By: #### 2 97173 #### [facility],[address] [place] [address] 95075 MCH (RBC) [Entitic mass] 30 pg Normal 27 - 33 [facility] Comment on above: Performed By: #### 2 16452 #### [facility],[address] [place] [address] 41453 MCHC (RBC) [Mass/Vol] 33 X10 3 Normal 32 - 36 [facility] Comment on above: Performed By: #### 2 64557 #### [facility],[address] [place] [address] 16694 MCV (RBC) [Entitic vol] 91 fL Normal 81 - 98 [facility] Comment on above: Performed By: #### 2 05815 #### [facility],[address] [place] [address] 30726 Monocytes (Bld) [#/Vol] 1.00 x10EE3/UL Normal 0. 20 - 1.00 [facility] Comment on above: Performed By: #### 2 01386 #### [facility],[address] [place] [address] 01845 MONOS % 10.5 % High 0.0 - 10.0 [facility] Comment on above: Performed By: #### 2 93967 #### [facility],[address] [place] [address] 63843 Morphology Crispin (Bld) [Interp] N/A Normal [facility] Comment on above: Performed By: #### 2 36445 #### [facility],[address] [place] [address] 12893 Neutrophils (Bld) [#/Vol] 6.10 x10EE3/UL Normal 1.50 - 7.10 [facility] Comment on above: Performed By: #### 2 25395 #### [facility],[address] [place] [address] 36174 Neutrophils/100 WBC (Bld) 64.4 % Normal 46.0 - 76.0 [facility] Comment on above: Performed By: #### 2 20710 #### [facility],[address] [place] [address] 25400 Platelet mean volume (Bld) [Entitic vol] 7.4 fL Normal 6.4 - 10.5 [facility] Comment on above: Result Comment: AUTO MATED DIFFERENTIAL Performed By: #### 2 95152 #### [facility],[address] [place] [address] 22798 Platelets (Bld) [#/Vol] 260 x10EE3/UL Normal 150 - 450 [facility] Comment on above: Performed By: #### 2 35243 #### [facility],[address] [place] [address] 41436 RBC (Bld) [#/Vol] 4.38 x 10EE6/UL Low 4.50 - 6.00 [facility] Comment on above: Performed By: #### 2 13329 #### [facility],[address] [place], [place] [phone] WBC (Bld) [#/Vol] 9.4 x 10EE3/UL Normal 4.5 - 10.8 [facility] Comment on above: Performed By: #### 2 89514 #### [facility],[address] [place] [address] LITHIUMon 11-05-2019 [place] [Moles/Vol] 0.5 mmol/L Low 0.6 - 1.2 [facility] Comment on above: Performed By: #### 2 16467 #### [facility],[address] [place] [address] RENAL FUNCTION PANELon 11-05 Albumin [Mass/Vol] 3.5 g/dL Normal 3.4 - 4.8 [facility] Comment on above: Performed By: #### 2 00166 #### [facility],[address] [place] [address] B/C RATIO 9 ratio Normal 0 - 30 [facility] Comment on above: Performed By: #### 2 79264 #### [facility],[address] [place] [address] Calcium [Mass/Vol] 9.4 mg/dL Normal 8.6 - 10.2 [facility] Comment on above: Performed By: #### 2 01007 #### [facility],[address] [place], [place] [id number] Creatinine [Mass/Vol] 2.2 mg/dL High 0.7 - 1.3 [facility] Comment on above: Performed By: #### 2 23369 #### [facility],[address],[place] [address] Glucose [Mass/Vol] 105 mg/dL Normal 74 - 106 [facility] Comment on above: Performed By: #### 2 32179 #### [facility],[address] [place] [address] Phosphate [Mass/Vol] 4.3 mg/dL Normal 2.7 - 4.9 [facility] Comment on above: Performed By: #### 2 18910 #### [facility],[address] [place] [address] RENAL FUNCTION PANEL Normal [facility] Comment on above: Result Comment: JESSICA L FUNCTION PANEL Performed By: #### 2 19729 #### [facility],[address] [place] [address] Urea nitrogen [Mass/Vol] 20 mg/dL Normal 6 - 20 [facility] Comment on above: Performed By: #### 2 17336 #### [facility],[address] [place] [address] URINALYSISon 11-05-2019 Bilirubin [Mass/Vol] Negative Normal NORMAL: NEGATIVE [facility] Comment on above: Performed By: #### 2 47398 #### [facility],[address] [place] [address] Blood Negative Normal NORMAL: NEGATIVE [facility] Comment on above: Performed By: #### 2 05265 #### [facility],[address] [place] [address] Clarity (U) clear Normal NORMAL: CLEAR [facility] Comment on above: Performed By: #### 2 59419 #### [facility],[address] [place] [address] Color (U) p.yel Normal NORMAL: YELLOW [facility] Comment on above: Performed By: #### 2 48192 #### [facility],[address] [place] [address] Glucose [Mass/Vol] NORM Normal NORMAL: NORMAL [facility] Comment on above: Performed By: #### 2 62876 #### [facility],[address] [place] [address] Ketone Negative Normal NORMAL: NEGATIVE [facility] Comment on above: Performed By: #### 2 18333 #### [facility],[address] [place] [address] Microscopic NOT INDICATED Normal [facility] Comment on above: Performed By: #### 2 52784 #### [facility],[address] [place] [address] Nitrite Ql (U) Negative Normal NORMAL: NEGATIVE [facility] Comment on above: Performed By: #### 2 55298 #### [facility],[address] [place] [address] pH (Bld) 6.5 Normal NORMAL: 5.0-8.0 [facility] Comment on above: Performed By: #### 2 31149 #### [facility],[address] [place] [address] Protein (U) [Mass/Vol] Negative Normal JENN L: NEGATIVE [facility] Comment on above: Performed By: #### 2 46359 #### [facility],[address] [place] [address] Sp [place] 1.010 Normal NORMAL: 1.010-1.03 0 [facility] Comment on above: Performed By: #### 2 61042 #### [facility],[address] [place] [address] Specimen type Nom (Spec) UNSPECIFIED Normal [facility] Comment on above: Performed By: #### 2 16006 #### [facility],[address] [place] [address] Urobilinog NORM Normal NORMAL: NORMAL [facility] Comment on above: Performed By: #### 2 02702 #### [facility],[address],[place] [address] WBC (Bld) [#/Vol] Negative Normal NORMAL: NEGATIVE [facility] Comment on above: Performed By: #### 2 97206 #### [facility],[address] [place] [address] 98521 URINE CREATININE AND PROTEIN RATIOon 11-05-2019 CREATININE UR 72.6 mg/dl Normal [facility] Comment on above: Performed By: #### 2 53373 #### [facility],[address] [place] [address] 40476 PC RATIO 0.07 mg/dL Normal 0.00 - 10.00 [facility] Comment on above: Performed By: #### 2 79090 #### [facility],[address] [place] [address] 38357 Protein (U) [Mass/Vol] mg/dL Normal 0.00 - 10.00 [facility] Comment on above: Performed By: #### 2 62534 #### [facility],[address] [place] [address] 19234 BMP with eGFRon 10-08-2019 Age - Reported 54 years Normal [facility] Comment on above: Performed By: #### 2 89514 #### [facility],[address] [place] [address] 89982 Anion gap [Moles/Vol] 12 mmol/L Normal 10 - 20 [facility] Comment on above: Performed By: #### 2 98826 #### [facility],[address] [place] [address] 73894 Calcium [Mass/Vol] 9.2 mg/dL Normal 8.6 - 10.2 [facility] Comment on above: Performed By: #### 2 40046 #### [facility],[address] [place] [address] 93922 Chloride [Moles/Vol] 107 mmol/L Normal 98 - 107 [facility] Comment on above: Performed By: #### 2 60485 #### [facility],[address] [place] [address] 72299 CO2 [Moles/Vol] 26.7 mmol/L Normal 21.0 - 31.0 [facility] Comment on above: Performed By: #### 2 51405 #### [facility],[address] [place] [address] 47198 Creatinine [Mass/Vol] 2.1 mg/dL High 0.7 - 1.3 [facility] Comment on above: Performed By: #### 2 52194 #### [facility],[address] [place] [address] 73684 GFR/1.73 sq M predicted among non-blacks MDRD (S/P/Bld) [Vol rate/Area] Normal [facility] Comment on above: Result Comment: BASI C METABOLIC PANEL Performed By: #### 2 86960 #### [facility],[address] [place] [address] 77958 GFR/1.73 sq M predicted among non-blacks MDRD (S/P/Bld) [Vol rate/Area] 40 ML/MINUTE Low 60 - 999 [facility] Comment on above: Result Comment: ACCO RDING TO THE NATIONAL KIDNEY DISEASE EDUCATION PROGRAM(NKDE), A NORMAL eGFR IS A VALUE GREATER THAN OR EQUAL TO 60 ML/MIN/1.73 SQ METERS. CHRONIC KIDNEY DISEASE: <60mL/MIN/1.73 SQ METERS KIDNEY FAILURE: <15mL/MIN/1.73 SQ METERS THIS TEST SHOULD ONLY BE USED FOR PATIENTS 18 YEARS OF AGE AND OLDER. Performed By: #### 2 77843 #### [facility],[address] [place] [address] 07076 GFR/1.73 sq M predicted among non-blacks MDRD (S/P/Bld) [Vol rate/Area] 33 ML/MINUTE Low 60 - 999 [facility] Comment on above: Performed By: #### 2 57919 #### [facility],[address] [place] [address] 52781 Glucose [Mass/Vol] 106 mg/dL Normal 74 - 106 [facility] Comment on above: Performed By: #### 2 56849 #### [facility],[address] [place] [address] 43260 Potassium [Moles/Vol] 3.6 mmol/L Normal 3.5 - 5.1 [facility] Comment on above: Performed By: #### 2 99821 #### [facility],[address] [place] [address] 22889 Sodium [Moles/Vol] 142 mmol/L Normal 136 - 145 [facility] Comment on above: Performed By: #### 2 98404 #### [facility],[address] [place] [address] 18034 Urea nitrogen [Mass/Vol] 22 mg/dL High 6 - 20 [facility] Comment on above: Performed By: #### 2 93912 #### [facility],[address] [place] [address] 60550 CBC + DIFFon 10-08-2019 Basophils (Bld) [#/Vol] 0.10 x10EE3/UL Normal 0. 00 - 0.10 [facility] Comment on above: Performed By: #### 2 38035 #### [facility],[address] [place] [address] 27077 Basophils/100 WBC (Bld) 0.7 % Normal 0.0 - 2.0 [facility] Comment on above: Performed By: #### 2 41634 #### [facility],[address] [place] [address] 22418 CBC + DIFF Normal [facility] Comment on above: Result Comment: CBC- COMPLETE BLOOD COUNT Performed By: #### 2 23058 #### [facility],[address] [place] [address] 77564 Eosinophils (Bld) [#/Vol] 0.50 x10EE3/UL Normal 0.00 - 0.50 [facility] Comment on above: Performed By: #### 2 34987 #### [facility],[address] [place] [address] 00053 Eosinophils/100 WBC (Bld) 5.1 % Normal 0.0 - 7.0 [facility] Comment on above: Performed By: #### 2 03672 #### [facility],[address] [place], [place] [address] Erythrocyte distribution width (RBC) [Ratio] 12.8 % Normal 12.0 - 15.6 [facility] Comment on above: Performed By: #### 2 48615 #### [facility],[address] [place] [address] Hematocrit (Bld) [Volume fraction] 37.6 % Low 40.0 - 52.0 [facility] Comment on above: Performed By: #### 2 23918 #### [place] [address] Hemoglobin (Bld) [Mass/Vol] 12.5 g/dL Low 13.0 - 17.5 [facility] Comment on above: Performed By: #### 2 04242 #### [facility],[address] [place] [address] 72538 Lymphocytes (Bld) [#/Vol] 1.90 x10EE3/UL Normal 0.80 - 2.80 [facility] Comment on above: Performed By: #### 2 94440 #### [place] [id number] Lymphocytes/100 WBC (Bld) 18.6 % Low 20.0 - 45.0 [facility] Comment on above: Performed By: #### 2 52121 #### [address] [address] MANUAL DIFF N/A Normal [facility] Comment on above: Performed By: #### 2 45693 #### [place] [id number] MCH (RBC) [Entitic mass] 31 pg Normal 27 - 33 [facility] Comment on above: Performed By: #### 2 54536 #### [facility],[address] [place] [address] 97859 MCHC (RBC) [Mass/Vol] 33 X10 3 Normal 32 - 36 [facility] Comment on above: Performed By: #### 2 42932 #### [facility],[address] [place] [address] 47869 MCV (RBC) [Entitic vol] 93 fL Normal 81 - 98 [facility] Comment on above: Performed By: #### 2 97284 #### [facility],[address] [place] [address] 05713 Monocytes (Bld) [#/Vol] 1.00 x10EE3/UL Normal 0. 20 - 1.00 [facility] Comment on above: Performed By: #### 2 54914 #### [facility],[address] [place] [address] 95290 MONOS % 9.4 % Normal 0.0 - 10.0 [facility] Comment on above: Performed By: #### 2 61115 #### [facility],[address] [place] [address] 27198 Morphology Cris[place] (Bld) [Interp] N/A Normal [facility] Comment on above: Performed By: #### 2 71221 #### [facility],[address] [place] [address] 13634 Neutrophils (Bld) [#/Vol] 6.90 x10EE3/UL Normal 1.50 - 7.10 [facility] Comment on above: Performed By: #### 2 88554 #### [facility],[address] [place] [address] 22570 Neutrophils/100 WBC (Bld) 66.2 % Normal 46.0 - 76.0 [facility] Comment on above: Performed By: #### 2 29027 #### [facility],[address] [place], [place] [phone] Platelet mean volume (Bld) [Entitic vol] 7.7 fL Normal 6.4 - 10.5 [facility] Comment on above: Result Comment: AUTO MATED DIFFERENTIAL Performed By: #### 2 96013 #### [facility],[address] [place] [address] 18259 Platelets (Bld) [#/Vol] 250 x10EE3/UL Normal 150 - 450 [facility] Comment on above: Performed By: #### 2 67950 #### [facility],[address] [place], [place] [address] RBC (Bld) [#/Vol] 4.07 x 10EE6/UL Low 4.50 - 6.00 [facility] Comment on above: Performed By: #### 2 37934 #### [facility],[address] [place], [place] [phone] WBC (Bld) [#/Vol] 10.4 x 10EE3/UL Normal 4.5 - 10.8 [facility] Comment on above: Performed By: #### 2 96940 #### [facility],[address] [place], [place] [id number] CULTURE URINEon 10-08-2019 CULTURE URINE CULTURE URINE _URINE CULTURE_ M I C R O B I O L O G Y R E P O R T FINAL ------- Antimicrobial Susceptibility and Organism Identification Report -------- Specimen Number : [id number] Requested : 10/08/19 Specimen Source : URINE Collected : 10/08/19 08:30 [place] of Isolation : MEME HUANG Received : 10/08/19 08:30 Requesting Physician : FLORECITA -- Patient/Specimen Tests and Comments Specimen Comments -------- -------- FINAL REPORT: NO GROWTH AT 48 HOURS -- Tech : Source : URINE ID # : [id number] FINAL Report Date : / / : Collected : 10/08/19 08:30 10/10/[id number]. 10/09/19.1011.BKO. 10/10/19.1115.[id number].COMPLETE Normal [facility] Comment on above: Performed By: #### 2 28908 #### [facility],[address] [place] [address] HEPATIC FUNCTION PANELon ALK PHOS 52 U/L Normal 38 - 126 [facility] Comment on above: Performed By: #### 2 12112 #### [facility],[address] [place] [address] 62432 ALT/SGPT 15 U/L Normal 10 - 40 [facility] Comment on above: Performed By: #### 2 29926 #### [facility],[address] [place] [address] 51327 AST/SGOT 9 U/L Low 13 - 39 [facility] Comment on above: Performed By: #### 2 89173 #### [facility],[address] [place] [address] 48150 Bilirubin [Mass/Vol] 0.3 mg/dL Normal 0.0 - 1.5 [facility] Comment on above: Performed By: #### 2 69722 #### [facility],[address] [place] [address] 86523 Bilirubin.direct [Mass/Vol] 0.1 mg/dL Normal 0.0 - 0.1 [facility] Comment on above: Performed By: #### 2 27971 #### [facility],[address] [place] [address] 32810 HEPATIC FUNCTION PANEL Normal [facility] Comment on above: Result Comment: HEPA TIC FUNCTION PROFILE Performed By: #### 2 85842 #### [facility],[address] [place] [address] 79199 Protein [Mass/Vol] 5.5 g/dL Low 6.4 - 8.3 [facility] Comment on above: Performed By: #### 2 68109 #### [facility],[address] [place] [address] 62207 LITHIUMon 10-08-2019 [place] [Moles/Vol] 0.6 mmol/L Normal 0.6 - 1.2 [facility] Comment on above: Performed By: #### 2 92760 #### [facility],[address] [place] [address] 12732 RENAL FUNCTION PANELon 10-08 Albumin [Mass/Vol] 3.5 g/dL Normal 3.4 - 4.8 [facility] Comment on above: Performed By: #### 2 50565 #### [facility],[address] [place] [address] 04274 B/C RATIO 10 ratio Normal 0 - 30 [facility] Comment on above: Performed By: #### 2 75854 #### [facility],[address] [place] [address] 24285 Calcium [Mass/Vol] 9.2 mg/dL Normal 8.6 - 10.2 [facility] Comment on above: Performed By: #### 2 95691 #### [facility],[address] [place] [address] 27553 Chloride [Moles/Vol] 107 mmol/L Normal 98 - 107 [facility] Comment on above: Performed By: #### 2 19443 #### [facility],[address] [place] [address] 78735 CO2 [Moles/Vol] 26.7 mmol/L Normal 21.0 - 31.0 [facility] Comment on above: Performed By: #### 2 02419 #### [facility],[address] [place] [address] 80847 Creatinine [Mass/Vol] 2.1 mg/dL High 0.7 - 1.3 [facility] Comment on above: Performed By: #### 2 23390 #### [facility],[address] [place] [address] 24912 Glucose [Mass/Vol] 106 mg/dL Normal 74 - 106 [facility] Comment on above: Performed By: #### 2 48251 #### [facility],[address] [place] [address] 18311 Phosphate [Mass/Vol] 4.7 mg/dL Normal 2.7 - 4.9 [facility] Comment on above: Performed By: #### 2 70100 #### [facility] [facility] [place] [address] 19660 Potassium [Moles/Vol] 3.6 mmol/L Normal 3.5 - 5.1 [facility] Comment on above: Performed By: #### 2 42066 #### [facility],[address] [place], [place] [id number] RENAL FUNCTION PANEL Normal [facility] Comment on above: Result Comment: JESSICA L FUNCTION PANEL Performed By: #### 2 15326 #### [facility],[address] [place] [address] Sodium [Moles/Vol] 142 mmol/L Normal 136 - 145 [facility] Comment on above: Performed By: #### 2 62827 #### [facility],[address] [place] [address] Urea nitrogen [Mass/Vol] 22 mg/dL High 6 - 20 [facility] Comment on above: Performed By: #### 2 55389 #### [facility],[address] [place] [address] URINALYSISon 10-08-2019 Bilirubin [Mass/Vol] Negative Normal NORMAL: NEGATIVE [facility] Comment on above: Performed By: #### 2 53008 #### [facility],[address] [place] [address] Blood Negative Normal NORMAL: NEGATIVE [facility] Comment on above: Performed By: #### 2 00685 #### [facility],[address] [place], [place] [id number] Clarity (U) clear Normal NORMAL: CLEAR [facility] Comment on above: Performed By: #### 2 73344 #### [facility],[address] [place], [place] [id number] Color (U) p.yel Normal NORMAL: YELLOW [facility] Comment on above: Performed By: #### 2 63609 #### [facility],[address] [place], [place] [address] Glucose [Mass/Vol] NORM Normal NORMAL: NORMAL [facility] Comment on above: Performed By: #### 2 40486 #### [facility],[address] [place], [place] [id number] Ketone Negative Normal NORMAL: NEGATIVE [facility] Comment on above: Performed By: #### 2 57721 #### [facility],[address] [place] [address] Microscopic NOT INDICATED Normal [facility] Comment on above: Performed By: #### 2 75403 #### [facility],[address] [place] [address] Nitrite Ql (U) Negative Normal NORMAL: NEGATIVE [facility] Comment on above: Performed By: #### 2 54581 #### [facility],[address] [place] [address] pH (Bld) 6 Normal NORMAL: 5.0-8.0 [facility] Comment on above: Performed By: #### 2 94182 #### [facility],[address] [place], [place] [id number] Protein (U) [Mass/Vol] Negative Normal JENN L: NEGATIVE [facility] Comment on above: Performed By: #### 2 31318 #### [facility],[address] [place], [place] [id number] Sp [place] 1.015 Normal NORMAL: 1.010-1.03 0 [facility] Comment on above: Performed By: #### 2 21924 #### [facility],[address] [place], [place] [id number] Specimen type Nom (Spec) Clean catch Normal [facility] Comment on above: Performed By: #### 2 28143 #### [facility],[address] [place], [place] [id number] Urobilinog NORM Normal NORMAL: NORMAL [facility] Comment on above: Performed By: #### 2 03771 #### [facility],[address] [place] [address] WBC (Bld) [#/Vol] Negative Normal NORMAL: NEGATIVE [facility] Comment on above: Performed By: #### 2 41425 #### [facility],[address] [place] [address] CBC + DIFFon 09-10-2019 Basophils (Bld) [#/Vol] 0.10 x10EE3/UL Normal 0. 00 - 0.10 [facility] Comment on above: Performed By: #### 2 88258 #### [facility],[address] [place] [address] Basophils/100 WBC (Bld) 1.0 % Normal 0.0 - 2.0 [facility] Comment on above: Performed By: #### 2 43741 #### [facility],[address] [place] [address] CBC + DIFF Normal [facility] Comment on above: Result Comment: CBC- COMPLETE BLOOD COUNT Performed By: #### 2 34183 #### [facility],[address] [place] [address] Eosinophils (Bld) [#/Vol] 0.50 x10EE3/UL Normal 0.00 - 0.50 [facility] Comment on above: Performed By: #### 2 65709 #### [facility],[address] [place], [place] [id number] Eosinophils/100 WBC (Bld) 6.3 % Normal 0.0 - 7.0 [facility] Comment on above: Performed By: #### 2 02514 #### [facility],[address] [place] [address] Erythrocyte distribution width (RBC) [Ratio] 13.3 % Normal 12.0 - 15.6 [facility] Comment on above: Performed By: #### 2 63387 #### [facility],[address],[place] [address] Hematocrit (Bld) [Volume fraction] 36.9 % Low 40.0 - 52.0 [facility] Comment on above: Performed By: #### 2 70835 #### [facility],[address] [place] [address] 29715 Hemoglobin (Bld) [Mass/Vol] 12.5 g/dL Low 13.0 - 17.5 [facility] Comment on above: Performed By: #### 2 98541 #### [facility],[address] [place] [address] 33994 Lymphocytes (Bld) [#/Vol] 2.20 x10EE3/UL Normal 0.80 - 2.80 [facility] Comment on above: Performed By: #### 2 62988 #### [facility],[address] [place] [address] 71815 Lymphocytes/100 WBC (Bld) 25.0 % Normal 20.0 - 45.0 [facility] Comment on above: Performed By: #### 2 30540 #### [facility],[address] [place] [address] 82795 MANUAL DIFF N/A Normal [facility] Comment on above: Performed By: #### 2 98659 #### [facility],[address] [place] [address] 80352 MCH (RBC) [Entitic mass] 31 pg Normal 27 - 33 [facility] Comment on above: Performed By: #### 2 29262 #### [facility],[address] [place] [address] 87339 MCHC (RBC) [Mass/Vol] 34 X10 3 Normal 32 - 36 [facility] Comment on above: Performed By: #### 2 18554 #### [facility],[address] [place] [address] 07138 MCV (RBC) [Entitic vol] 93 fL Normal 81 - 98 [facility] Comment on above: Performed By: #### 2 05654 #### [facility],[address] [place] [address] 17192 Monocytes (Bld) [#/Vol] 0.90 x10EE3/UL Normal 0. 20 - 1.00 [facility] Comment on above: Performed By: #### 2 83507 #### [facility],[address] [place] [address] 76866 MONOS % 10.6 % High 0.0 - 10.0 [facility] Comment on above: Performed By: #### 2 85576 #### [facility],[address] [place] [address] 44876 Morphology Cris[place] (Bld) [Interp] N/A Normal [facility] Comment on above: Performed By: #### 2 08185 #### [address] [address] Neutrophils (Bld) [#/Vol] 5.00 x10EE3/UL Normal 1.50 - 7.10 [facility] Comment on above: Performed By: #### 2 12940 #### [address] [address] Neutrophils/100 WBC (Bld) 57.1 % Normal 46.0 - 76.0 [facility] Comment on above: Performed By: #### 2 70952 #### [address] [address] Platelet mean volume (Bld) [Entitic vol] 7.6 fL Normal 6.4 - 10.5 [facility] Comment on above: Result Comment: AUTO MATED DIFFERENTIAL Performed By: #### 2 98591 #### [address] [address] Platelets (Bld) [#/Vol] 236 x10EE3/UL Normal 150 - 450 [facility] Comment on above: Performed By: #### 2 94617 #### [facility],[address] [place] [address] 25994 RBC (Bld) [#/Vol] 3.99 x 10EE6/UL Low 4.50 - 6.00 [facility] Comment on above: Performed By: #### 2 96817 #### [facility],[address] [place] [address] 21249 WBC (Bld) [#/Vol] 8.7 x 10EE3/UL Normal 4.5 - 10.8 [facility] Comment on above: Performed By: #### 2 42784 #### [facility],[address] [place] [address] 18682 CULTURE URINEon 09-10-2019 CULTURE URINE CULTURE URINE _URINE CULTURE_ M I C R O B I O L O G Y R E P O R T FINAL ------- Antimicrobial Susceptibility and Organism Identification Report -------- Specimen Number : [id number] Requested : 09/10/19 Specimen Source : CLEAN CATCH URINE Collected : 09/10/19 04:30 Arredondo of Isolation : MEME HUANG Received : 09/10/19 04:30 Requesting Physician : FLORECITA -- Patient/Specimen Tests and Comments Specimen Comments -------- -------- FINAL REPORT: NO GROWTH AT 48 HOURS -- Tech : Source : CLEAN CATCH URINE ID # : [id number] FINAL Report Date : / / : Collected : 09/10/19 04:30 09/12/19.1052.BKO. 09/11/19.0717.JLN. 09/12/19.1052.BKO.COMPLETE 09/12/19.BKO.to [facility] via fax Normal [facility] Comment on above: Performed By: #### 2 97396 #### [facility],[address] [place] [address] 04578 LITHIUMon 09-10-2019 [place] [Moles/Vol] 0.6 mmol/L Normal 0.6 - 1.2 [facility] Comment on above: Performed By: #### 2 13212 #### [facility],[address] [place] [address] 77783 RENAL FUNCTION PANEL WITH eG FRon 09-10-2019 Age - Reported 54 years Normal [facility] Comment on above: Performed By: #### 2 40232 #### [facility],[address] [place] [address] 76522 Albumin [Mass/Vol] 3.4 g/dL Normal 3.4 - 4.8 [facility] Comment on above: Performed By: #### 2 23952 #### [facility],[address] [place] [address] 76554 B/C RATIO 11 ratio Normal 0 - 30 [facility] Comment on above: Performed By: #### 2 43829 #### [facility],[address] [place] [address] 53180 Calcium [Mass/Vol] 9.2 mg/dL Normal 8.6 - 10.2 [facility] Comment on above: Performed By: #### 2 77563 #### [facility],[address] [place] [address] 62395 Chloride [Moles/Vol] 107 mmol/L Normal 98 - 107 [facility] Comment on above: Performed By: #### 2 60119 #### [facility],[address] [place] [address] 78245 CO2 [Moles/Vol] 25.3 mmol/L Normal 21.0 - 31.0 [facility] Comment on above: Performed By: #### 2 76472 #### [facility],[address] [place] [address] 01559 Creatinine [Mass/Vol] 2.2 mg/dL High 0.7 - 1.3 [facility] Comment on above: Performed By: #### 2 02916 #### [facility],[address] [place] [address] 43615 GFR/1.73 sq M predicted among non-blacks MDRD (S/P/Bld) [Vol rate/Area] 31 ML/MINUTE Low 60 - 999 [facility] Comment on above: Performed By: #### 2 62296 #### [facility],[address] [place] [address] 56830 GFR/1.73 sq M predicted among non-blacks MDRD (S/P/Bld) [Vol rate/Area] 38 ML/MINUTE Low 60 - 999 [facility] Comment on above: Result Comment: ACCO RDING TO THE NATIONAL KIDNEY DISEASE EDUCATION PROGRAM(NKDE), A NORMAL eGFR IS A VALUE GREATER THAN OR EQUAL TO 60 ML/MIN/1.73 SQ METERS. CHRONIC KIDNEY DISEASE: <60mL/MIN/1.73 SQ METERS KIDNEY FAILURE: <15mL/MIN/1.73 SQ METERS THIS TEST SHOULD ONLY BE USED FOR PATIENTS 18 YEARS OF AGE AND OLDER. Performed By: #### 2 16765 #### [facility],[address] [place] [address] 79727 Glucose [Mass/Vol] 96 mg/dL Normal 74 - 106 [facility] Comment on above: Performed By: #### 2 25612 #### [address] [address] Phosphate [Mass/Vol] 4.5 mg/dL Normal 2.7 - 4.9 [facility] Comment on above: Performed By: #### 2 77342 #### [address] [address] Potassium [Moles/Vol] 3.5 mmol/L Normal 3.5 - 5.1 [facility] Comment on above: Performed By: #### 2 83298 #### [address] [address] RENAL FUNCTION PANEL WITH eGFR Normal [facility] Comment on above: Result Comment: JESSICA L FUNCTION PANEL Performed By: #### 2 02761 #### [facility],[address] [place] [address] 94197 Sodium [Moles/Vol] 141 mmol/L Normal 136 - 145 [facility] Comment on above: Performed By: #### 2 96852 #### [address] [address] Urea nitrogen [Mass/Vol] 24 mg/dL High 6 - 20 [facility] Comment on above: Performed By: #### 2 11548 #### [address] [address] URINALYSISon 09-10-2019 Bilirubin [Mass/Vol] Negative Normal NORMAL: NEGATIVE [facility] Comment on above: Performed By: #### 2 00889 #### [facility],[address] [place] [address] 08484 Blood Negative Normal NORMAL: NEGATIVE [facility] Comment on above: Performed By: #### 2 77629 #### [facility],[address] [place], [place] [id number] Clarity (U) clear Normal NORMAL: CLEAR [facility] Comment on above: Performed By: #### 2 30656 #### [facility],[address] [place] [address] Color (U) p.yel Normal NORMAL: YELLOW [facility] Comment on above: Performed By: #### 2 32375 #### [facility],[address] [place], [place] [id number] Glucose [Mass/Vol] NORM Normal NORMAL: NORMAL [facility] Comment on above: Performed By: #### 2 34271 #### [facility],[address] [place] [address] 20339 Ketone Negative Normal NORMAL: NEGATIVE [facility] Comment on above: Performed By: #### 2 91462 #### [facility],[address] [place] [address] 32007 Microscopic NOT INDICATED Normal [facility] Comment on above: Performed By: #### 2 95473 #### [facility],[address] [place] [address] 73726 Nitrite Ql (U) Negative Normal NORMAL: NEGATIVE [facility] Comment on above: Performed By: #### 2 24437 #### [facility],[address] [place] [address] 87791 pH (Bld) 6.5 Normal NORMAL: 5.0-8.0 [facility] Comment on above: Performed By: #### 2 86149 #### [facility],[address] [place] [address] 19144 Protein (U) [Mass/Vol] Negative Normal JENN L: NEGATIVE [facility] Comment on above: Performed By: #### 2 66913 #### [facility],[address] [place] [address] 99369 Sp [place] 1.010 Normal NORMAL: 1.010-1.03 0 [facility] Comment on above: Performed By: #### 2 77483 #### [facility],[address] [place] [address] Specimen type Nom (Spec) Clean catch Normal [facility] Comment on above: Performed By: #### 2 56523 #### [facility],[address] [place], [place] [id number] Urobilinog NORM Normal NORMAL: NORMAL [facility] Comment on above: Performed By: #### 2 16166 #### [facility],[address] [place], [place] [id number] WBC (Bld) [#/Vol] Negative Normal NORMAL: NEGATIVE [facility] Comment on above: Performed By: #### 2 78689 #### [facility],[address] [place] [address] 65279 URINE CREATININE AND PROTEIN RATIOon 09-10-2019 CREATININE UR 58.3 mg/dl Normal [facility] Comment on above: Performed By: #### 2 14991 #### [facility],[address] [place] [address] 86839 PC RATIO 0.09 mg/dL Normal 0.00 - 10.00 [facility] Comment on above: Performed By: #### 2 16137 #### [facility],[address] [place] [address] 89772 Protein (U) [Mass/Vol] mg/dL Normal 0.00 - 10.00 [facility] Comment on above: Performed By: #### 2 90870 #### [facility],[address] [place] [address] 13137 BMP with eGFRon 08-31-2019 Age - Reported 54 years Normal [facility] Comment on above: Performed By: #### 2 88510 #### [facility],[address] [place] [address] 45194 Anion gap [Moles/Vol] 12 mmol/L Normal 10 - 20 [facility] Comment on above: Performed By: #### 2 94103 #### [facility],[address] [place] [address] 37274 Calcium [Mass/Vol] 9.4 mg/dL Normal 8.6 - 10.2 [facility] Comment on above: Performed By: #### 2 47604 #### [facility],[address] [place] [address] 20193 Chloride [Moles/Vol] 104 mmol/L Normal 98 - 107 [facility] Comment on above: Performed By: #### 2 49489 #### [facility],[address] [place] [address] 42553 CO2 [Moles/Vol] 26.9 mmol/L Normal 21.0 - 31.0 [facility] Comment on above: Performed By: #### 2 11058 #### [facility],[address] [place] [address] 84978 Creatinine [Mass/Vol] 2.4 mg/dL High 0.7 - 1.3 [facility] Comment on above: Performed By: #### 2 76920 #### [facility],[address] [place] [address] 99234 GFR/1.73 sq M predicted among non-blacks MDRD (S/P/Bld) [Vol rate/Area] Normal [facility] Comment on above: Result Comment: BASI C METABOLIC PANEL Performed By: #### 2 80035 #### [facility],[address] [place] [address] 04324 GFR/1.73 sq M predicted among non-blacks MDRD (S/P/Bld) [Vol rate/Area] 28 ML/MINUTE Low 60 - 999 [facility] Comment on above: Performed By: #### 2 59411 #### [facility],[address] [place] [address] 42325 GFR/1.73 sq M predicted among non-blacks MDRD (S/P/Bld) [Vol rate/Area] 34 ML/MINUTE Low 60 - 999 [facility] Comment on above: Result Comment: ACCO RDING TO THE NATIONAL KIDNEY DISEASE EDUCATION PROGRAM(NKDE), A NORMAL eGFR IS A VALUE GREATER THAN OR EQUAL TO 60 ML/MIN/1.73 SQ METERS. CHRONIC KIDNEY DISEASE: <60mL/MIN/1.73 SQ METERS KIDNEY FAILURE: <15mL/MIN/1.73 SQ METERS THIS TEST SHOULD ONLY BE USED FOR PATIENTS 18 YEARS OF AGE AND OLDER. Performed By: #### 2 57597 #### [address] [address] Glucose [Mass/Vol] 106 mg/dL Normal 74 - 106 [facility] Comment on above: Performed By: #### 2 10204 #### [address] [address] Potassium [Moles/Vol] 3.5 mmol/L Normal 3.5 - 5.1 [facility] Comment on above: Performed By: #### 2 68459 #### [address] [address]67 Sodium [Moles/Vol] 139 mmol/L Normal 136 - 145 [facility] Comment on above: Performed By: #### 2 22573 #### [address] [address]279 Urea nitrogen [Mass/Vol] 25 mg/dL High 6 - 20 [facility] Comment on above: Performed By: #### 2 61920 #### [address] [address] HGB A1C [CCL]on 08-26-2019 HbA1c (Bld) [Mass fraction] 117 mg/dL Normal [facility] Comment on above: Result Comment: eAG: (Estimated average glucose) is a calculated value from HgbA1c and is customer contact representative of the average blood glucose level in the last 2-3 month period. [facility] [address] [id number] Peyton Lang M.D. [id number] Performed By: #### 2 30455 #### [facility],[address] [place] [address] 47425 HbA1c (Bld) [Mass fraction] 5.7 % High 4.3-5.6 [facility] Comment on above: Result Comment: Amer [place] Diabetes Association guidelines indicate that patients with HgbA1c in the range 5.7-6.4% are at increased risk for development of diabetes, and intervention by lifestyle modification may be beneficial. HgbA1c greater or equal to 6.5% is considered diagnostic of diabetes. Performed By: #### 2 65357 #### [facility],[address] [place] [address] 19651 Hemoglobin A1con 08-26-2019 HbA1c (Bld) [Mass fraction] 5.7 % High 4.3-5.6 [facility] Comment on above: Performed By: #### H BA1C #### [facility] Routine Lab [address] [place] [address] HbA1c (Bld) [Mass fraction] 117 mg/dL Normal [facility] Comment on above: Performed By: #### H BA1C #### [facility]ine [facility] [address] [address] RENAL FUNCTION PANELon 08-14 Albumin [Mass/Vol] 3.2 g/dL Low 3.4 - 4.8 [facility] Comment on above: Performed By: #### 2 18684 #### [address] [address] B/C RATIO 13 ratio Normal 0 - 30 [facility] Comment on above: Performed By: #### 2 27320 #### [facility],[address] [place] [address] 14255 Calcium [Mass/Vol] 8.8 mg/dL Normal 8.6 - 10.2 [facility] Comment on above: Performed By: #### 2 34740 #### [facility],[address] [place] [address] 37690 Chloride [Moles/Vol] 105 mmol/L Normal 98 - 107 [facility] Comment on above: Performed By: #### 2 81738 #### [facility],[address] [place] [address] 22580 CO2 [Moles/Vol] 29.8 mmol/L Normal 21.0 - 31.0 [facility] Comment on above: Performed By: #### 2 06070 #### [facility],[address] [place] [address] 72821 Creatinine [Mass/Vol] 2.0 mg/dL High 0.7 - 1.3 [facility] Comment on above: Performed By: #### 2 85577 #### [facility],[address] [place] [address] 38491 Glucose [Mass/Vol] 78 mg/dL Normal 74 - 106 [facility] Comment on above: Performed By: #### 2 97930 #### [facility],[address] [place] [address] 76392 Phosphate [Mass/Vol] 4.8 mg/dL Normal 2.7 - 4.9 [facility] Comment on above: Performed By: #### 2 91813 #### [facility],[address] [place] [address] 85325 Potassium [Moles/Vol] 3.9 mmol/L Normal 3.5 - 5.1 [facility] Comment on above: Performed By: #### 2 96224 #### [facility],[address] [place] [address] 80037 RENAL FUNCTION PANEL Normal [facility] Comment on above: Result Comment: JESSICA L FUNCTION PANEL Performed By: #### 2 84843 #### [facility],[address] [place] [address] 11258 Sodium [Moles/Vol] 141 mmol/L Normal 136 - 145 [facility] Comment on above: Performed By: #### 2 04777 #### [facility],[address] [place] [address] 76232 Urea nitrogen [Mass/Vol] 25 mg/dL High 6 - 20 [facility] Comment on above: Performed By: #### 2 77472 #### [facility],[address] [place], [place] [id number] CBC (NO DIFF)on 08-06-2019 CBC (NO DIFF) Normal [facility] Comment on above: Result Comment: CBC( WITHOUT DIFFERENTIAL) Performed By: #### 2 57568 #### [facility],[address] [place] [address] 74546 Erythrocyte distribution width (RBC) [Ratio] 13.2 % Normal 12.0 - 15.6 [facility] Comment on above: Performed By: #### 2 38381 #### [facility],[address] [place] [address] 05161 Hematocrit (Bld) [Volume fraction] 37.7 % Low 40.0 - 52.0 [facility] Comment on above: Performed By: #### 2 50070 #### [facility],[address] [place] [address] 35132 Hemoglobin (Bld) [Mass/Vol] 12.9 g/dL Low 13.0 - 17.5 [facility] Comment on above: Performed By: #### 2 14942 #### [facility],[address] [place] [address] 77242 MCH (RBC) [Entitic mass] 32 pg Normal 27 - 33 [facility] Comment on above: Performed By: #### 2 89601 #### [facility],[address] [place] [address] 91747 MCHC (RBC) [Mass/Vol] 34 X10 3 Normal 32 - 36 [facility] Comment on above: Performed By: #### 2 78518 #### [facility],[address] [place] [address] 61194 MCV (RBC) [Entitic vol] 94 fL Normal 81 - 98 [facility] Comment on above: Performed By: #### 2 38185 #### [facility],[address] [place] [address] 87757 Platelet mean volume (Bld) [Entitic vol] 7.3 fL Normal 6.4 - 10.5 [facility] Comment on above: Performed By: #### 2 45597 #### [facility],[address] [place] [address] 21984 Platelets (Bld) [#/Vol] 166 x10EE3/UL Normal 150 - 450 [facility] Comment on above: Performed By: #### 2 [id number] #### [facility],[address] [place] [address] 40752 RBC (Bld) [#/Vol] 4.00 x 10EE6/UL Low 4.50 - 6.00 [facility] Comment on above: Performed By: #### 2 91075 #### [facility],[address] [place] [address] 08901 WBC (Bld) [#/Vol] 8.7 x 10EE3/UL Normal 4.5 - 10.8 [facility] Comment on above: Performed By: #### 2 10415 #### [facility],[address] [place] [address] 47418 CULTURE URINEon 08-06-2019 CULTURE URINE CULTURE URINE _URINE CULTURE_ M I C R O B I O L O G Y R E P O R T FINAL ------- Antimicrobial Susceptibility and Organism Identification Report -------- Specimen Number : [id number] Requested : 08/06/19 Specimen Source : CLEAN CATCH URINE Collected : 08/06/19 03:10 [place] of Isolation : REJITerra HUANG Received : 08/06/19 03:10 Requesting Physician : FLORECITA -- Patient/Specimen Tests and Comments Specimen Comments -------- -------- FINAL REPORT: NO GROWTH AT 48 HOURS -- Tech : Source : CLEAN CATCH URINE ID # : [id number] FINAL Report Date : / / : Collected : 08/06/19 03:10 08/08/19.1104.BKO. 08/07/19.0711.JLN. 08/08/19.1105.BKO.COMPLETE Normal [facility] Comment on above: Performed By: #### 2 [id number] #### [facility],[address] [place], [place] [id number] LITHIUMon 08-06-2019 [place] [Moles/Vol] 0.6 mmol/L Normal 0.6 - 1.2 [facility] Comment on above: Performed By: #### 2 50895 #### [facility],[address] [place], [place] [id number] MR MRI BRAIN W/O CONTRASTon 08-06-2019 MR MRI BRAIN W/O CONTRAST [place] [address] Patient: REGGIE LEÓN Phone#: : 1965 Age: 54 Gender: M Pt. Type: Out Account: [id number] Location: Ordering: HODA BERNABE Exam Date: 08/06/2019/8:56 Family Phys: Charge Code: [id number] Physician: Mccook Order #: [id number] DLP Dose#: PROCEDURE: MRI BRAIN WITHOUT CONTRAST [...] Momin MD on 08/06/2019 at 9:51 Normal [facility] RENAL FUNCTION PANELon 08-06 Albumin [Mass/Vol] 3.3 g/dL Low 3.4 - 4.8 [facility] Comment on above: Performed By: #### 2 22976 #### [facility],[address] [place] [address] 47866 B/C RATIO 11 ratio Normal 0 - 30 [facility] Comment on above: Performed By: #### 2 41897 #### [facility],[address] [place] [address] 76279 Calcium [Mass/Vol] 8.9 mg/dL Normal 8.6 - 10.2 [facility] Comment on above: Performed By: #### 2 92129 #### [facility],[address] [place] [address] 42682 Chloride [Moles/Vol] 107 mmol/L Normal 98 - 107 [facility] Comment on above: Performed By: #### 2 82834 #### [facility],[address] [place] [address] 12844 CO2 [Moles/Vol] 26.8 mmol/L Normal 21.0 - 31.0 [facility] Comment on above: Performed By: #### 2 18265 #### [facility],[address] [place] [address] 04933 Creatinine [Mass/Vol] 2.2 mg/dL High 0.7 - 1.3 [facility] Comment on above: Performed By: #### 2 68441 #### [facility],[address] [place] [address] 06112 Glucose [Mass/Vol] 84 mg/dL Normal 74 - 106 [facility] Comment on above: Performed By: #### 2 60239 #### [facility],[address] [place] [address] 46901 Phosphate [Mass/Vol] 3.9 mg/dL Normal 2.7 - 4.9 [facility] Comment on above: Performed By: #### 2 92752 #### [facility],[address] [place] [address] Potassium [Moles/Vol] 4.1 mmol/L Normal 3.5 - 5.1 [facility] Comment on above: Performed By: #### 2 55530 #### [facility],[address] [place] [address] RENAL FUNCTION PANEL Normal [facility] Comment on above: Result Comment: JESSICA L FUNCTION PANEL Performed By: #### 2 06140 #### [facility],[address] [place] [address] Sodium [Moles/Vol] 141 mmol/L Normal 136 - 145 [facility] Comment on above: Performed By: #### 2 49657 #### [facility],[address] [place] [address] Urea nitrogen [Mass/Vol] 25 mg/dL High 6 - 20 [facility] Comment on above: Performed By: #### 2 40086 #### [facility],[address] [place] [address] URINALYSISon 08-06-2019 Bilirubin [Mass/Vol] Negative Normal NORMAL: NEGATIVE [facility] Comment on above: Performed By: #### 2 80179 #### [facility],[address] [place] [address] Blood Negative Normal NORMAL: NEGATIVE [facility] Comment on above: Performed By: #### 2 34562 #### [facility],[address] [place] [address] Clarity (U) clear Normal NORMAL: CLEAR [facility] Comment on above: Performed By: #### 2 36288 #### [facility],[address] [place] [address] Color (U) p.yel Normal NORMAL: YELLOW [facility] Comment on above: Performed By: #### 2 21321 #### [facility],[address] [place], [place] [id number] Glucose [Mass/Vol] NORM Normal NORMAL: NORMAL [facility] Comment on above: Performed By: #### 2 15932 #### [facility],[address] [place] [address] Ketone Negative Normal NORMAL: NEGATIVE [facility] Comment on above: Performed By: #### 2 78412 #### [facility],[address] [place] [address] Microscopic NOT Normal [facility] Comment on above: Performed By: #### 2 72928 #### [facility],[address] [place], [place] [id number] Nitrite Ql (U) Negative Normal NORMAL: NEGATIVE [facility] Comment on above: Performed By: #### 2 74440 #### [facility],[address] [place] [address] pH (Bld) 8 Normal NORMAL: 5.0-8.0 [facility] Comment on above: Performed By: #### 2 24134 #### [facility],[address] [place] [address] Protein (U) [Mass/Vol] Negative Normal JENN L: NEGATIVE [facility] Comment on above: Performed By: #### 2 66809 #### [facility],[address] [place], [place] [id number] Sp [place] 1.010 Normal NORMAL: 1.010-1.03 0 [facility] Comment on above: Performed By: #### 2 20375 #### [facility],[address] [place] [address] Specimen type Nom (Spec) Clean catch Normal [facility] Comment on above: Performed By: #### 2 80167 #### [facility],[address] [place], [place] [id number] Urobilinog NORM Normal NORMAL: NORMAL [facility] Comment on above: Performed By: #### 2 82575 #### [facility],[address] [place], [place] [id number] WBC (Bld) [#/Vol] Negative Normal NORMAL: NEGATIVE [facility] Comment on above: Performed By: #### 2 06014 #### [facility],[address] [place] [address] URINE CREATININE AND PROTEIN RATIOon 08-06-2019 CREATININE UR 35.5 mg/dl Normal [facility] Comment on above: Performed By: #### 2 92755 #### [facility],[address] [place] [address] PC RATIO 0.11 mg/dL Normal 0.00 - 10.00 [facility] Comment on above: Performed By: #### 2 82678 #### [facility],[address] [place] [address] 54951 Protein (U) [Mass/Vol] mg/dL Normal 0.00 - 10.00 [facility] Comment on above: Performed By: #### 2 55268 #### [facility],[address] [place] [address] 65627 Ammoniaon 03-19-2019 Ammonia mass conc (P) 34 umol/L Normal 16-60 [facility] Comment on above: Performed By: #### L ITH #### [facility] [address] [place] [id number] Basic Metabolic Panelon 05-0 Anion gap molar conc 13 mmol/L Normal 9-15 [facility] Comment on above: Result Comment: Effe ctive: 12/21/2018 New reference range for this analyte has been established. Performed By: #### L ITH #### [facility] [address] [place] [address] Calcium mass conc 8.8 mg/dL Normal 8.5-9.9 [facility] Comment on above: Result Comment: Effe ctive: 12/21/2018 New reference range for this analyte has been established. Performed By: #### L ITH #### [facility] [address] [place] [address] Chloride molar conc 106 mmol/L Normal 95-107 [facility] Comment on above: Result Comment: Effe ctive: 12/21/2018 New reference range for this analyte has been established. Performed By: #### L ITH #### [facility] [address] [place] [address] CO2 molar conc 22 mmol/L Normal 20-31 [facility] Comment on above: Result Comment: Effe ctive: 12/21/2018 New reference range for this analyte has been established. Performed By: #### L ITH #### [facility] [address] [place] [address] Creatinine mass conc 1.78 mg/dL Critically high 0.70-1.20 [facility] Comment on above: Performed By: #### L ITH #### [facility] [address] [place] [address] GFR/1.73 sq M predicted among blacks MDRD vol rate/area (S/P/Bld) 48.1 mL/min/{1.73_m2} Low >60 [facility] Comment on above: Result Comment: >60 mL/min/1.73m2 EGFR, calc. for ages 18 and older using the MDRD formula (not corrected for weight), is valid for stable renal function. Performed By: #### L ITH #### [facility] [address] [place] [address] GFR/1.73 sq M.predicted MDRD vol rate/area 39.8 mL/min/{1.73_m2} Low >60 [facility] Comment on above: Result Comment: >60 mL/min/1.73m2 EGFR, calc. for ages 18 and older using the MDRD formula (not corrected for weight), is valid for stable renal function. Performed By: #### L ITH #### [facility] [address] [place] [address] Glucose mass conc 84 mg/dL Normal 70-99 [facility] Comment on above: Result Comment: Effe ctive: 12/21/2018 New reference range for this analyte has been established. Performed By: #### L ITH #### [facility] [address] [place] [address] Potassium molar conc 4.4 mmol/L Normal 3.4-4.9 [facility] Comment on above: Result Comment: Effe ctive: 12/21/2018 New reference range for this analyte has been established. Performed By: #### L ITH #### [facility] [address] [place] [address] Sodium molar conc 141 mmol/L Normal 135-144 [facility] Comment on above: Result Comment: Effe ctive: 12/21/2018 New reference range for this analyte has been established. Performed By: #### L ITH #### [facility] [address] [place] [address] Urea nitrogen mass conc 25 mg/dL Critically high 6-20 [facility] Comment on above: Performed By: #### L ITH #### [facility] [address] [place] [address] Valproic Acid /Depakene Leve rahul 03-19-2019 Protein mass conc 62.5 ug/mL Normal 50.0-100.0 [facility] Comment on above: Performed By: #### L ITH #### [facility] [address] [place] [address] Basic Metabolic Panelon 05-0 Anion gap molar conc 14 mmol/L Normal 9-15 [facility] Comment on above: Result Comment: Effe ctive: 12/21/2018 New reference range for this analyte has been established. Performed By: #### L ITH #### [facility] [address] [place] [address] Calcium mass conc 9.1 mg/dL Normal 8.5-9.9 [facility] Comment on above: Result Comment: Effe ctive: 12/21/2018 New reference range for this analyte has been established. Performed By: #### L ITH #### [facility] [address] [place] [address] Chloride molar conc 107 mmol/L Normal 95-107 [facility] Comment on above: Result Comment: Effe ctive: 12/21/2018 New reference range for this analyte has been established. Performed By: #### L ITH #### [facility] [address] [place] [address] CO2 molar conc 22 mmol/L Normal 20-31 [facility] Comment on above: Result Comment: Effe ctive: 12/21/2018 New reference range for this analyte has been established. Performed By: #### L ITH #### [facility] [address] [place] [address] Creatinine mass conc 2.32 mg/dL Critically high 0.70-1.20 [facility] Comment on above: Performed By: #### L ITH #### [facility] [address] [place] [address] GFR/1.73 sq M predicted among blacks MDRD vol rate/area (S/P/Bld) 35.4 mL/min/{1.73_m2} Low >60 [facility] Comment on above: Result Comment: >60 mL/min/1.73m2 EGFR, calc. for ages 18 and older using the MDRD formula (not corrected for weight), is valid for stable renal function. Performed By: #### L ITH #### [facility] [address] [place] [address] GFR/1.73 sq M.predicted MDRD vol rate/area 29.3 mL/min/{1.73_m2} Low >60 [facility] Comment on above: Result Comment: >60 mL/min/1.73m2 EGFR, calc. for ages 18 and older using the MDRD formula (not corrected for weight), is valid for stable renal function. Performed By: #### L ITH #### [facility] [address] [place] [address] Glucose mass conc 97 mg/dL Normal 70-99 [facility] Comment on above: Result Comment: Effe ctive: 12/21/2018 New reference range for this analyte has been established. Performed By: #### L ITH #### [facility] [address] [place] [address] Potassium molar conc 4.5 mmol/L Normal 3.4-4.9 [facility] Comment on above: Result Comment: Effe ctive: 12/21/2018 New reference range for this analyte has been established. Performed By: #### L ITH #### [facility] [address] [place] [address] Sodium molar conc 143 mmol/L Normal 135-144 [facility] Comment on above: Result Comment: Effe ctive: 12/21/2018 New reference range for this analyte has been established. Performed By: #### L ITH #### [facility] [address] [place] [address] Urea nitrogen mass conc 29 mg/dL Critically high 6-20 [facility] Comment on above: Performed By: #### L ITH #### [facility] [address] [place] [address] Basic Metabolic Panelon 05-0 Anion gap molar conc 10 mmol/L Normal 9-15 [facility] Comment on above: Result Comment: Effe ctive: 12/21/2018 New reference range for this analyte has been established. Performed By: #### L ITH #### [facility] [address] [place] [address] Calcium mass conc 8.7 mg/dL Normal 8.5-9.9 [facility] Comment on above: Result Comment: Effe ctive: 12/21/2018 New reference range for this analyte has been established. Performed By: #### L ITH #### [facility] [address] [place] [address] Chloride molar conc 109 mmol/L Critically high 95-107 [facility] Comment on above: Result Comment: Effe ctive: 12/21/2018 New reference range for this analyte has been established. Performed By: #### L ITH #### [facility] [address] [place] [address] CO2 molar conc 24 mmol/L Normal 20-31 [facility] Comment on above: Result Comment: Effe ctive: 12/21/2018 New reference range for this analyte has been established. Performed By: #### L ITH #### [facility] [address] [place] [address] Creatinine mass conc 1.77 mg/dL Critically high 0.70-1.20 [facility] Comment on above: Performed By: #### L ITH #### [facility] [address] [place] [address] GFR/1.73 sq M predicted among blacks MDRD vol rate/area (S/P/Bld) 48.4 mL/min/{1.73_m2} Low >60 [facility] Comment on above: Result Comment: >60 mL/min/1.73m2 EGFR, calc. for ages 18 and older using the MDRD formula (not corrected for weight), is valid for stable renal function. Performed By: #### L ITH #### [facility] [address] [place] [address] GFR/1.73 sq M.predicted MDRD vol rate/area 40.0 mL/min/{1.73_m2} Low >60 [facility] Comment on above: Result Comment: >60 mL/min/1.73m2 EGFR, calc. for ages 18 and older using the MDRD formula (not corrected for weight), is valid for stable renal function. Performed By: #### L ITH #### [facility] [address] [place] [address] Glucose mass conc 95 mg/dL Normal 70-99 [facility] Comment on above: Result Comment: Effe ctive: 12/21/2018 New reference range for this analyte has been established. Performed By: #### L ITH #### [facility] [address] [place] [address] Potassium molar conc 4.8 mmol/L Normal 3.4-4.9 [facility] Comment on above: Result Comment: Effe ctive: 12/21/2018 New reference range for this analyte has been established. Performed By: #### L ITH #### [facility] [address] [place] [address] Sodium molar conc 143 mmol/L Normal 135-144 [facility] Comment on above: Result Comment: Effe ctive: 12/21/2018 New reference range for this analyte has been established. Performed By: #### L ITH #### [facility] [address] [place] [address] Urea nitrogen mass conc 25 mg/dL Critically high 6-20 [facility] Comment on above: Performed By: #### L ITH #### [facility] [address] [place] [address] Ammoniaon 03-12-2019 Ammonia mass conc (P) 20 umol/L Normal 16-60 [facility] Comment on above: Performed By: #### N H3 #### [facility] [address] [place] [address] Basic Metabolic Panelon 04-2 Anion gap molar conc 14 mmol/L Normal 9-15 [facility] Comment on above: Result Comment: Effe ctive: 12/21/2018 New reference range for this analyte has been established. Performed By: #### L ITH #### [facility] [address] [place] [address] Calcium mass conc 9.1 mg/dL Normal 8.5-9.9 [facility] Comment on above: Result Comment: Effe ctive: 12/21/2018 New reference range for this analyte has been established. Performed By: #### L ITH #### [facility] [address] [place] [address] Chloride molar conc 109 mmol/L Critically high 95-107 [facility] Comment on above: Result Comment: Effe ctive: 12/21/2018 New reference range for this analyte has been established. Performed By: #### L ITH #### [facility] [address] [place] [address] CO2 molar conc 24 mmol/L Normal 20-31 [facility] Comment on above: Result Comment: Effe ctive: 12/21/2018 New reference range for this analyte has been established. Performed By: #### L ITH #### [facility] [address] [place] [address] Creatinine mass conc 1.94 mg/dL Critically high 0.70-1.20 [facility] Comment on above: Performed By: #### L ITH #### [facility] [address] [place] [address] GFR/1.73 sq M predicted among blacks MDRD vol rate/area (S/P/Bld) 43.6 mL/min/{1.73_m2} Low >60 [facility] Comment on above: Result Comment: >60 mL/min/1.73m2 EGFR, calc. for ages 18 and older using the MDRD formula (not corrected for weight), is valid for stable renal function. Performed By: #### L ITH #### [facility] [address] [place] [address] GFR/1.73 sq M.predicted MDRD vol rate/area 36.0 mL/min/{1.73_m2} Low >60 [facility] Comment on above: Result Comment: >60 mL/min/1.73m2 EGFR, calc. for ages 18 and older using the MDRD formula (not corrected for weight), is valid for stable renal function. Performed By: #### L ITH #### [facility] [address] [place] [address] Glucose mass conc 90 mg/dL Normal 70-99 [facility] Comment on above: Result Comment: Effe ctive: 12/21/2018 New reference range for this analyte has been established. Performed By: #### L ITH #### [facility] [address] [place] [address] Potassium molar conc 4.5 mmol/L Normal 3.4-4.9 [facility] Comment on above: Result Comment: Effe ctive: 12/21/2018 New reference range for this analyte has been established. Performed By: #### L ITH #### [facility] [address] [place] [address] Sodium molar conc 147 mmol/L Critically high 135-144 [facility] Comment on above: Result Comment: Effe ctive: 12/21/2018 New reference range for this analyte has been established. Performed By: #### L ITH #### [facility] [address] [place] [address] Urea nitrogen mass conc 27 mg/dL Critically high 6-20 [facility] Comment on above: Performed By: #### L ITH #### [facility] [address] [place] [address] [place] Levelon 03-12-2019 [place] molar conc 0.8 mmol/L Normal 0.6-1.2 [facility] Comment on above: Performed By: #### L ITH #### [facility] [address] [place] [address] Valproic Acid /Depakene Leve rahul 03-12-2019 Protein mass conc 70.6 ug/mL Normal 50.0-100.0 [facility] Comment on above: Performed By: #### L ITH #### [facility] [address] [place] [address] Basic Metabolic Panelon 02-13 Anion gap molar conc 13 mmol/L Normal 9-15 [facility] Comment on above: Result Comment: Effe ctive: 12/21/2018 New reference range for this analyte has been established. Performed By: #### B MP #### [facility] [address] [place] [address] Calcium mass conc 8.9 mg/dL Normal 8.5-9.9 [facility] Comment on above: Result Comment: Effe ctive: 12/21/2018 New reference range for this analyte has been established. Performed By: #### B MP #### [facility] [address] [place] [address] Chloride molar conc 108 mmol/L Critically high 95-107 [facility] Comment on above: Result Comment: Effe ctive: 12/21/2018 New reference range for this analyte has been established. Performed By: #### B MP #### [facility] [address] [place] [address] CO2 molar conc 23 mmol/L Normal 20-31 [facility] Comment on above: Result Comment: Effe ctive: 12/21/2018 New reference range for this analyte has been established. Performed By: #### B MP #### [facility] [address] [place] [address] Creatinine mass conc 1.82 mg/dL Critically high 0.70-1.20 [facility] Comment on above: Performed By: #### B MP #### [facility] [address] [place] [address] GFR/1.73 sq M predicted among blacks MDRD vol rate/area (S/P/Bld) 46.9 mL/min/{1.73_m2} Low >60 [facility] Comment on above: Result Comment: >60 mL/min/1.73m2 EGFR, calc. for ages 18 and older using the MDRD formula (not corrected for weight), is valid for stable renal function. Performed By: #### B MP #### [facility] [address] [place] [address] GFR/1.73 sq M.predicted MDRD vol rate/area 38.8 mL/min/{1.73_m2} Low >60 [facility] Comment on above: Result Comment: >60 mL/min/1.73m2 EGFR, calc. for ages 18 and older using the MDRD formula (not corrected for weight), is valid for stable renal function. Performed By: #### B MP #### [facility] [address] [place] [address] Glucose mass conc 82 mg/dL Normal 70-99 [facility] Comment on above: Result Comment: Effe ctive: 12/21/2018 New reference range for this analyte has been established. Performed By: #### B MP #### [facility] [address] [place] [address] Potassium molar conc 4.2 mmol/L Normal 3.4-4.9 [facility] Comment on above: Result Comment: Effe ctive: 12/21/2018 New reference range for this analyte has been established. Performed By: #### B MP #### [facility] [address] [place] [address] Sodium molar conc 144 mmol/L Normal 135-144 [facility] Comment on above: Result Comment: Effe ctive: 12/21/2018 New reference range for this analyte has been established. Performed By: #### B MP #### [facility] [address] [place] [address] Urea nitrogen mass conc 28 mg/dL Critically high 6-20 [facility] Comment on above: Performed By: #### B MP #### [facility] [address] [place] [address] Lipid Panelon 03-09-2019 Cholesterol in HDL mass conc 30 mg/dL Low 40-59 [facility] Comment on above: Result Comment: ATP [...] CHD Performed By: #### L IPID #### [facility] [address] [place] [address] Cholesterol in LDL mass conc 83 mg/dL Normal 0-129 [facility] Comment on above: Result Comment: ATP III LDL Classification is Optimal. Performed By: #### L IPID #### [facility] [address] [place] [address] Cholesterol mass conc 160 mg/dL Normal 0-199 [facility] Comment on above: Result Comment: ATP III Cholesterol classification is Desirable. Performed By: #### L IPID #### [facility] [address] [place] [address] Triglyceride mass conc 234 mg/dL Critically high 0-150 [facility] Comment on above: Result Comment: ATP III Triglycerides Classification is High. Effective: 12/21/2018 New reference range for this analyte has been established. Performed By: #### L IPID #### [facility] [address] [place] [address] Ammoniaon 03-04-2019 Ammonia mass conc (P) 35 umol/L Normal 16-60 [facility] Comment on above: Performed By: #### N H3 #### [facility] [address] [place] [address] [place] Levelon 03-04-2019 [place] molar conc 0.7 mmol/L Normal 0.6-1.2 [facility] Comment on above: Performed By: #### L ITH #### [facility] [address] [place] [address] TSH w/out Reflexon 201 9 Thyrotropin Qn 2.880 uIU/mL Normal 0.440-3.86 [facility] Comment on above: Result Comment: Effe ctive: 12/21/2018 New reference range for this analyte has been established. Performed By: #### T SH #### [facility] [address] [place] [address] VITAMIN Don 03-04-2019 VITAMIN D 33.1 ng/mL Normal 30.0-100.0 [facility] Comment on above: Result Comment: (30- 100 ng/mL) Optimum Level This assay accurately quantifies the sum of vitamin D3, 25-Hydroxy and vitamin D2, 25-Hyroxy. Performed By: #### V ITD #### [facility] [address] [place] [address] Valproic Acid /Depakene Leve rahul 03-04-2019 Protein mass conc 25.8 ug/mL Low 50.0-100.0 [facility] Comment on above: Performed By: #### V ALPR #### [facility] [address] [place] [address] Vitamin B12 and Folateon Cobalamin (Vitamin B12) mass conc 340 pg/mL Normal 232-1245 [facility] Comment on above: Performed By: #### B 12FO #### [facility] [address] [place] [address] Folate 10.2 ng/mL Normal 7.3-26.1 [facility] Comment on above: Result Comment: As o f 16, the methodology has changed. Results from this methodology should not be compared with results from previous methodology. Performed By: #### B 12FO #### [facility] [address] [place] [address] Creatinineon 06-06-2018 Creatinine 1.93 mg/dL High 0.58-0.96 [facility] Comment on above: Performed By: #### C RET1, TSH, LI ####[facility] [id number] [place], [place] [phone] eGFR (non-black) 27 . Normal [facility] Comment on above: Performed By: #### C RET1, TSH, LI ####[facility] [address] [place], [place] [phone] eGFR- Amer. 33 Normal [facility] Comment on above: Performed By: #### C RET1, TSH, LI ####[facility] [id number] [place], [place] [phone] Lithiumon 06-06-2018 [place] 0.8 mmol/L Normal 0.6-1.2 [facility] Comment on above: Performed By: #### C RET1, TSH, LI ####[facility] [address] [place], [place] [phone] TSHon 06-06-2018 Thyroid stimulating hormone (TSH) 2.350 uU/mL Normal 0.400-5.50 0 [facility] Comment on above: Performed By: #### C RET1, TSH, LI ####[facility] [address] [place], [place] [phone] Culture, urine Bacteria identified Cx Nom (U) Culture exhibits no growth. [facility] Work Phone: Bacteria identified Cx Nom (U) Positive [facility] Work Phone: Bacteria identified Cx Nom (U) Actinomyces turicensis [facility] Work Phone: Bacteria identified Cx Nom (U) Streptococcus mitis [facility] Work Phone: Vital Signs Date Time Vital Sign Value Performing Clinician Facility 02-26-2025 11:40-0400 Diastolic blood pressure 76 mm[Hg] [facility] Work Phone: [facility] 02-26-2025 11:40-0400 Heart rate 75 /min [facility] Work Phone: [facility] 02-26-2025 11:40-0400 Respiratory rate 18 /min [facility] Work Phone: [facility] 02-26-2025 11:40-0400 SaO2% (BldA) [Mass fraction] 96 % [facility] Work Phone: [facility] 02-26-2025 11:40-0400 Systolic blood pressure 122 mm[Hg] [facility] Work Phone: [facility] 02-26-2025 09:00-0400 Body temperature 98.6 [degF] [facility] Work Phone: [facility] 02-12-2025 14:04-0400 Diastolic blood pressure 55 mm[Hg] [facility] Work Phone: [facility] 02-12-2025 14:04-0400 Heart rate 78 /min [facility] Work Phone: [facility] 02-12-2025 14:04-0400 Respiratory rate 18 /min [facility] Work Phone: [facility] 02-12-2025 14:04-0400 SaO2% (BldA) [Mass fraction] 95 % [facility] Work Phone: [facility] 02-12-2025 14:04-0400 Systolic blood pressure 128 mm[Hg] [facility] Work Phone: [facility] 02-12-2025 09:00-0400 Body temperature 98.6 [degF] [facility] Work Phone: [facility] 09-14-2024 08:49-0400 Body height 176.3 cm Dorota Smith MD Work Phone: [facility] 09-14-2024 08:49-0400 Body mass index (BMI) [Ratio] 39.27 kg/m2 Dorota Smith MD Work Phone: [facility] 09-14-2024 08:49-0400 Body temperature 97.3 [degF] Dorota Smith MD Work Phone: [facility] 09-14-2024 08:49-0400 Body weight 122.05 kg Dorota Smith MD Work Phone: [facility] 09-14-2024 08:49-0400 Diastolic blood pressure 65 mm[Hg] Dorota Smith MD Work Phone: [facility] 09-14-2024 08:49-0400 Heart rate 106 /min Dorota Smith MD Work Phone: [facility] 09-14-2024 08:49-0400 Respiratory rate 14 /min Dorota Smith MD Work Phone: [facility] 09-14-2024 08:49-0400 Systolic blood pressure 104 mm[Hg] Dorota Smith MD Work Phone: [facility] 08-09-2024 10:45-0400 Diastolic blood pressure 68 mm[Hg] [facility] Work Phone: [facility] 08-09-2024 10:45-0400 Heart rate 82 /min [facility] Work Phone: [facility] 08-09-2024 10:45-0400 Respiratory rate 18 /min [facility] Work Phone: [facility] 08-09-2024 10:45-0400 SaO2% (BldA) [Mass fraction] 96 % [facility] Work Phone: [facility] 08-09-2024 10:45-0400 Systolic blood pressure 125 mm[Hg] [facility] Work Phone: [facility] 08-09-2024 07:00-0400 Body temperature 98.4 [degF] [facility] Work Phone: [facility] 07-17-2024 11:09-0400 Body height 182.9 cm Anthony Olivares MD Work Phone: [facility] 07-17-2024 11:09-0400 Body mass index (BMI) [Ratio] 36.48 kg/m2 Anthony Olivares MD Work Phone: [facility] 07-17-2024 11:09-0400 Body weight 122 kg Anthony Olivares MD Work Phone: [facility] 07-17-2024 11:09-0400 Diastolic blood pressure 73 mm[Hg] Anthony Olivares MD Work Phone: [facility] 07-17-2024 11:09-0400 Heart rate 90 /min Anthony Olivares MD Work Phone: [facility] 07-17-2024 11:09-0400 Systolic blood pressure 106 mm[Hg] Anthony Olivares MD Work Phone: [facility] 01-26-2024 12:00-0400 Diastolic blood pressure 62 mm[Hg] [facility] Work Phone: [facility] 01-26-2024 12:00-0400 Heart rate 97 /min [facility] Work Phone: [facility] 01-26-2024 12:00-0400 Respiratory rate 18 /min [facility] Work Phone: [facility] 01-26-2024 12:00-0400 SaO2% (BldA) [Mass fraction] 96 % [facility] Work Phone: [facility] 01-26-2024 12:00-0400 Systolic blood pressure 110 mm[Hg] [facility] Work Phone: [facility] 01-26-2024 07:05-0400 Body temperature 98.6 [degF] [facility] Work Phone: [facility] 12-20-2023 09:51-0500 Body height 177.8 cm Anthony Olivares MD Work Phone: [facility] 12-20-2023 09:51-0500 Body temperature 97.7 [degF] Anthony Olivares MD Work Phone: [facility] 12-20-2023 09:51-0500 Body weight 126.4 kg Anthony Olivares MD Work Phone: [facility] 12-20-2023 09:51-0500 Diastolic blood pressure 68 mm[Hg] Anthony Olivares MD Work Phone: [facility] 12-20-2023 09:51-0500 Heart rate 116 /min Anthony Olivares MD Work Phone: [facility] 12-20-2023 09:51-0500 Systolic blood pressure 97 mm[Hg] Anthony Olivares MD Work Phone: [facility] 02-25-2023 11:04-0400 Body height 171.5 cm Luz Daniel MD Work Phone: [facility] 02-25-2023 11:04-0400 Body temperature 97.9 [degF] Luz Daniel MD Work Phone: [facility] 02-25-2023 11:04-0400 Body weight 146.69 kg Luz Daniel MD Work Phone: [facility] 02-25-2023 11:04-0400 Diastolic blood pressure 86 mm[Hg] Luz Daniel MD Work Phone: [facility] 02-25-2023 11:04-0400 Heart rate 93 /min Luz Daniel MD Work Phone: [facility] 02-25-2023 11:04-0400 Systolic blood pressure 125 mm[Hg] Luz Daniel MD Work Phone: [facility] 11-03-2022 13:05-0500 Body temperature 97.2 [degF] [place] [facility] Work Phone: [facility] 11-03-2022 13:05-0500 Diastolic blood pressure 78 mm[Hg] [place] [facility] Work Phone: [facility] 11-03-2022 13:05-0500 Heart rate 89 /min [place] 2 Work Phone: [facility] 11-03-2022 13:05-0500 Respiratory rate 18 /min [place] 2 Work Phone: [facility] 11-03-2022 13:05-0500 SaO2% (BldA) [Mass fraction] 95 % [place] [facility] Work Phone: [facility] 11-03-2022 13:05-0500 Systolic blood pressure 124 mm[Hg] [place] [facility] Work Phone: [facility] 11-03-2022 07:52-0500 Body weight 144.74 kg [place] 2 Work Phone: [facility] 08-27-2022 10:46-0400 Body height 171.5 cm Luz Daniel MD Work Phone: [facility] 08-27-2022 10:46-0400 Body temperature 98.29 [degF] Luz Daniel MD Work Phone: [facility] 08-27-2022 10:46-0400 Body weight 146.06 kg Luz Daniel MD Work Phone: [facility] 08-27-2022 10:46-0400 Diastolic blood pressure 95 mm[Hg] Luz Daniel MD Work Phone: [facility] 08-27-2022 10:46-0400 Heart rate 109 /min Luz Daniel MD Work Phone: [facility] 08-27-2022 10:46-0400 Systolic blood pressure 132 mm[Hg] Luz Daniel MD Work Phone: [facility] 07-27-2022 15:53-0400 Body height 176.5 cm Anthony Olivares MD Work Phone: [facility] 07-27-2022 15:53-0400 Body weight 142.88 kg Anthony Olivares MD Work Phone: [facility] 07-27-2022 15:53-0400 Diastolic blood pressure 85 mm[Hg] Anthony Olivares MD Work Phone: [facility] 07-27-2022 15:53-0400 Heart rate 94 /min Anthony Olivares MD Work Phone: [facility] 07-27-2022 15:53-0400 Systolic blood pressure 128 mm[Hg] Anthony Olivares MD Work Phone: [facility] 05-05-2022 13:15-0400 Body temperature 97.2 [degF] Kidney 1 [facility] 05-05-2022 13:15-0400 Diastolic blood pressure 91 mm[Hg] Kidney 1 [facility] 05-05-2022 13:15-0400 Heart rate 116 /min Kidney 1 [facility] 05-05-2022 13:15-0400 Systolic blood pressure 157 mm[Hg] Kidney 1 [facility] 05-05-2022 07:40-0400 SaO2% (BldA) [Mass fraction] 95 % Kidney 1 [facility] 05-05-2022 07:36-0400 Body weight 140.57 kg Kidney 1 [facility] 11-04-2020 15:52-0500 Body Temperature 97.2 [degF] [facility] [place], [place] 11-04-2020 15:52-0500 BP Diastolic 74 mm[Hg] [facility] , [place] 11-04-2020 15:52-0500 BP Systolic 113 mm[Hg] [facility] , [place] 11-04-2020 15:52-0500 Pulse (Heart Rate) 92 /min [facility] 11-04-2020 15:52-0500 Pulse Oximetry 96 % Otf Vora [facility] 11-04-2020 15:52-0500 Respiratory Rate 17 /min [facility] 11-04-2020 05:31-0500 Body weight 114.31 kg [facility] Encounters Encounter Date Encounter Type Care Provider Facility Start: 05-23-2025 End: 05-23-2025 ambulatory Anthony Olivares MD Work Phone: [facility] Comment on above: 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); Stage 3b chronic kidney disease (HCC) Start: 05-23-2025 End: 05-23-2025 Telemedicine consultation with patient Anthony Olivares MD Work Phone: [facility] Start: 05-02-2025 ambulatory Adam CHANDLER Fac ility:[facility] Start: 05-02-2025 Registered Referred Adam Ferraro -[facility] [employer] Start: 04-26-2025 ambulatory Alfredo CHANDLER Faci lity:[facility] Start: 04-26-2025 Registered Referred Alfredo Phipps - [facility] [employer] Start: 04-24-2025 ambulatory Adam CHNADLER Fac ility:[facility] Start: 04-24-2025 Registered Referred Aadm Ferraro -[facility] [employer] Start: 04-01-2025 End: 04-01-[address] Elgin Bal MD Work Phone: -[facility] Start: 04-01-2025 End: 04-01-2025 Departed Referred Adam Ferraro -[facility] [employer] Start: 04-01-2025 End: 04-01-2025 ambulatory Adam CHANDLER Facility:[facility] Start: 03-27-2025 ambulatory Alfredo Krishnani lity:[facility] Start: 03-27-2025 Registered Referred Alfredo Phipps - [facility] [employer] Start: 03-04-2025 End: 03-04-[address] Elgin Bal MD Work Phone: [facility] Work Phone: Start: 03-04-2025 End: 03-04-2025 Departed Referred [facility] Start: 03-04-2025 Registered Referred [facility] Start: 03-04-2025 End: 03-04-2025 ambulatory Adam Ferraro RAMESH Facility:[facility] Start: 02-27-2025 End: 02-27-[address] Elgin Bal MD Work Phone: [facility] Work Phone: Start: 02-27-2025 End: 02-27-2025 Departed Referred Alfredo Raynashawna [facility] [employer] Start: 02-27-2025 Registered Referred Alfredo Desire OSORIO Start: 02-26-2025 End: 02-27-2025 ambulatory ANTHONY OLIVARES Facility:[facility] Start: 02-26-2025 End: 02-26-2025 Subsequent hospital visit by physician Chair [facility] Work Phone: [facility] Start: 02-25-2025 End: 02-25-[address] Elgin Bal MD Work Phone: [facility] Work Phone: Start: 02-25-2025 End: 02-25-2025 Departed Referred Adam [facility] [employer] Start: 02-25-2025 Registered Referred Adam [employer] Start: 02-25-2025 End: 02-25-2025 ambulatory Adam CHANDLER Facility:[facility] Start: 02-12-2025 ambulatory ANTHONY Rivera ELISE Facility: [facility] Start: 02-12-2025 End: 02-12-2025 Subsequent hospital visit by physician Chair [facility] Work Phone: [facility] Start: 02-11-2025 End: 02-11-[address] Elgin Bal MD Work Phone: [facility] Work Phone: Start: 02-11-2025 End: 02-11-2025 Departed Referred Alfredo Phipps -[facility] Start: 02-11-2025 Registered Referred Alfredo Raynashawna - [facility] [employer] Start: 02-11-2025 End: 02-11-2025 ambulatory [facility] Facility:[facility] Start: 02-06-2025 End: 02-06-[address] Elgin Bal MD Work Phone: [facility] Work Phone: Start: 02-06-2025 End: 02-06-2025 Departed Referred Alfredo Raynashawna -[facility] [employer] Start: 02-06-2025 Registered Referred Alfredo Desire - [facility] [employer] Start: 02-06-2025 End: 02-06-2025 ambulatory [facility] Facility:[facility] Start: 01-30-2025 End: 01-30-2025 Departed Referred Adam Ferraro -[facility] [employer] Start: 01-30-2025 End: 01-30-2025 Orders Only Anthony Olivares MD Work Phone: [facility] Start: 01-30-2025 Registered Referred Adam Ferraro -[facility] [employer] Start: 01-30-2025 End: 01-30-2025 ambulatory Adam CHANDLER Facility:[facility] Start: 01-25-2025 End: 01-25-[address] Elgin Bal MD Work Phone: [facility] Work Phone: Start: 01-25-2025 End: 01-25-2025 Departed Referred Adam Ferraro -[facility] [employer] [facility] Start: 01-25-2025 End: 01-25-2025 ambulatory Adam CHANDLER Facility:[facility] Start: 01-03-2025 End: 01-03-[address] Elgin Bal MD Work Phone: [facility] Work Phone: Start: 01-03-2025 End: 01-03-2025 Departed Referred Adam Gunmele -[facility] Start: 01-03-2025 Registered Referred Adam Gunning -[facility] Start: 01-02-2025 End: 01-03-[address] Elgin Bal MD Work Phone: [facility] Work Phone: Start: 01-02-2025 End: 01-02-2025 Departed Referred Adam Gunning -[facility] [employer] Start: 01-02-2025 Registered Referred Adam Gunning -[facility] [employer] Start: 01-02-2025 End: 01-02-2025 ambulatory [facility] Facility:[facility] Start: 12-28-2024 End: 12-28-[address] Elgin Bal MD Work Phone: [facility] Work Phone: Start: 12-28-2024 End: 12-28-2024 Departed Referred Adam Jasmine -[facility] [employer] Start: 12-28-2024 End: 12-28-2024 ambulatory [facility] Facility:[facility] Start: 11-27-2024 End: 11-27-2024 Departed Referred Adam Jasmine -[facility] [employer] Start: 11-27-2024 End: 11-27-2024 ambulatory [facility] Facility:[facility] Start: 11-20-2024 End: 11-23-2024 ambulatory Anthony Olivares MD Work Phone: [facility] Start: 11-15-2024 End: 11-15-2024 Departed Referred Adam Gunning -[facility] Start: 11-15-2024 End: 11-15-2024 ambulatory Adam Ferraro RAMESH Facility:[facility] Start: 09-27-2024 End: 09-27-2024 Departed Referred Adam Gunning -[facility] [employer] Start: 09-27-2024 End: 09-27-2024 ambulatory [facility] Facility:[facility] Start: 09-14-2024 End: 09-14-2024 Patient encounter procedure Dorota Smith MD Work Phone: [facility] Comment on above: 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); Rash and nonspecific skin eruption; 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) Start: 09-14-2024 End: 09-14-2024 ambulatory ALFREDO PHIPPS Facility:[facility] Start: 09-12-2024 End: 09-12-2024 ambulatory Elgin Bal Facility:[facility] Start: 08-27-2024 End: 08-27-2024 ambulatory Adam CHANDLER Facility:[facility] Start: 08-10-2024 ambulatory Alfredo CHANDLER Faci lity:[facility] Start: 08-09-2024 ambulatory ANTHONY OLIVARES Facility: [facility] Start: 08-09-2024 End: 08-09-2024 Subsequent hospital visit by physician Chair [facility] Work Phone: [facility] Comment on above: Rituximab Start: 07-31-2024 End: 07-31-2024 ambulatory Adam CHANDLER Facility:[facility] Start: 07-17-2024 End: 07-17-2024 Patient encounter procedure Anthony Olivares MD Work Phone: [facility] Comment on above: 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); Stage 3b chronic kidney disease (HCC); Benign hypertension with chronic kidney disease Start: 07-17-2024 End: 07-20-2024 ambulatory Anthony Olivares MD Work Phone: [facility] Start: 06-29-2024 End: 06-29-2024 ambulatory Adam CHANDLER Facility:[facility] Start: 06-27-2024 End: 06-27-2024 ambulatory Alfredo CHANDLER Facility:[facility] Start: 06-22-2024 End: 06-22-2024 ambulatory Adam CHANDLER Facility:[facility] Start: 06-08-2024 End: 06-08-2024 ambulatory Adam CHANDLER Facility:[facility] Start: 05-28-2024 End: 05-28-2024 ambulatory Adam CHANDLER Facility:[facility] Start: 05-25-2024 End: 05-25-2024 ambulatory Adam CHANDLER Facility:[facility] Start: 05-21-2024 Telephone encounter Dorota hameed MD Work Phone: [facility] [place] [facility] Comment on above: No Show Start: 03-19-2024 Telephone encounter Ronny Coreas MD Work Phone: [facility] Start: 03-19-2024 End: 03-19-2024 ambulatory RONNY COREAS Facility:[facility] Start: 03-19-2024 End: 03-19-2024 Office outpatient visit 15 minutes Ronny Coreas MD Work Phone: [facility] Comment on above: Vasculitis (HCC) (Pr imary Dx); Stage 3b chronic kidney disease (HCC); 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); Benign hypertension with chronic kidney disease Start: 02-03-2024 End: 02-03-2024 ambulatory [facility] Work Phone: Start: 02-03-2024 End: 02-03-2024 Departed Referred [facility] Start: 01-26-2024 End: 01-26-2024 Subsequent hospital visit by physician Chair [facility] Work Phone: [facility] Comment on above: Rituximab Start: 01-06-2024 End: 01-06-2024 ambulatory [facility] Work Phone: Start: 01-06-2024 End: 01-06-2024 Departed Referred [facility] Start: 12-29-2023 Orders Only Babak Drummond RN [facility] Start: 12-27-2023 Orders Only Anthony Olivares MD Work Phone: [facility] Main [place] Start: 12-23-2023 Telephone encounter Nuria noyola RN Kidney Medicine Comment on above: Appointment Start: 12-20-2023 End: 12-20-2023 ambulatory Anthony Olivares MD Work Phone: [facility] Start: 12-20-2023 End: 12-20-2023 Patient encounter procedure Anthony Olivares MD Work Phone: [facility] Comment on above: 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); Stage 3b chronic kidney disease (HCC); Benign hypertension with chronic kidney disease Start: 12-09-2023 End: 12-09-2023 ambulatory [facility] Work Phone: Start: 12-09-2023 End: 12-09-2023 Departed Referred [facility] Start: 11-16-2023 End: 11-16-2023 Departed Referred [facility] [employer] Start: 11-16-2023 Registered Referred [facility] [employer] Start: 11-11-2023 End: 11-11-2023 ambulatory [facility] Work Phone: Start: 11-11-2023 End: 11-11-2023 Departed Referred [facility] [employer] [facility] Start: 11-11-2023 Registered Referred [facility] Start: 10-27-2023 End: 10-27-2023 ambulatory [facility] Work Phone: Start: 10-27-2023 End: 10-27-2023 Departed Referred [facility] [employer] Start: 10-14-2023 End: 10-14-2023 ambulatory [facility] Work Phone: Start: 10-14-2023 End: 10-14-2023 Departed Referred [facility] [employer] Start: 09-27-2023 End: 09-27-2023 ambulatory [facility] Work Phone: Start: 09-27-2023 End: 09-27-2023 Departed Referred [facility] [employer] Start: 11-14-2023 Registered [facility] [employer] Start: 09-16-2023 End: 09-16-2023 ambulatory [facility] Work Phone: Start: 09-16-2023 End: 09-16-[address] [facility] Start: 08-29-2023 Telephone encounter Dorota hameed MD Work Phone: [facility] Comment on above: Patient Update Start: 08-26-2023 Telephone encounter Luz Daniel MD Work Phone: [facility] [place] Comment on above: NO SHOW Start: 08-19-2023 End: 08-19-2023 ambulatory [facility] Work Phone: Start: 08-19-2023 End: 08-19-2023 [facility] Start: 07-28-2023 End: 07-28-[address] Start: 07-28-2023 Registered Referred [facility] [employer] Start: 07-24-2023 Registered Referred [facility] [employer] Start: 07-22-2023 End: 07-22-2023 ambulatory [facility] Work Phone: Start: 07-22-2023 End: 07-22-[address] Start: 06-24-2023 End: 06-24-2023 ambulatory [facility] Work Phone: Start: 06-24-2023 End: 06-24-[address] Start: 06-24-2023 Registered Referred [facility] [employer] Start: 05-30-2023 End: 05-30-2023 ambulatory [facility] Work Phone: Start: 05-30-2023 End: 05-30-2023 [facility] Start: 05-30-2023 [facility] Start: 05-27-2023 End: 05-27-2023 ambulatory [facility] Work Phone: Start: 05-27-2023 End: 05-27-2023 [facility] Start: 05-27-2023 [facility] Start: 05-19-2023 End: 05-19-2023 ambulatory [facility] Work Phone: Start: 05-19-2023 End: 05-19-2023 [facility] Start: 05-19-2023 [facility] Start: 04-29-2023 End: 04-29-2023 ambulatory [facility] Work Phone: Start: 04-29-2023 End: 04-29-2023 [facility] Start: 04-29-2023 [facility] Start: 04-27-2023 End: 04-27-2023 ambulatory [facility] Work Phone: Start: 04-27-2023 End: 04-27-2023 [facility] Start: 04-04-2023 End: 04-04-2023 [facility] Start: 04-01-2023 End: 04-01-2023 [facility] Start: 03-04-2023 End: 03-04-2023 ambulatory [facility] Work Phone: Start: 03-04-2023 End: 03-04-2023 [facility] Start: 02-25-2023 End: 02-25-2023 Patient encounter procedure Luz Daniel MD Work Phone: [facility] [place] Comment on above: Rheumatoid arthritis involving both hands 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 rheumatoid factor (HCC) (Primary Dx); 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 Start: 02-04-2023 End: 02-04-2023 ambulatory [facility] Work Phone: Start: 02-04-2023 End: 02-04-[address] [facility] Start: 02-04-2023 Registered Referred [facility] [employer] [facility] Start: 01-25-2023 End: 01-25-2023 ambulatory [facility] Work Phone: Start: 01-25-2023 End: 01-25-2023 [facility] Start: 01-25-2023 [facility] Start: 01-19-2023 End: 01-19-2023 [facility] Start: 01-19-2023 [facility] Start: 01-07-2023 End: 01-07-2023 ambulatory [facility] Work Phone: Start: 01-07-2023 End: 01-07-[address] Start: 01-07-2023 [facility] Start: 12-28-2022 End: 12-28-2022 ambulatory [facility] Work Phone: Start: 12-28-2022 End: 12-28-[address] [facility] Start: 12-28-2022 Registered Referred [facility] [employer] Start: 12-15-2022 End: 12-15-2022 Departed Referred [facility] [employer] Start: 12-15-2022 Registered Referred [facility] [employer] [employer] Start: 12-10-2022 End: 12-10-2022 ambulatory [facility] Work Phone: Start: 12-10-2022 End: 12-10-[address] Start: 11-17-2022 End: 11-17-2022 ambulatory [facility] Work Phone: Start: 11-17-2022 End: 11-17-2022 Departed Referred [facility] [employer] Start: 11-17-2022 Registered Referred [facility] [employer] Start: 11-12-2022 End: 11-12-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) Start: 10-27-2022 End: 10-27-2022 ambulatory [facility] Work Phone: Start: 10-27-2022 End: 10-27-2022 Departed Referred [facility] [employer] Start: 10-27-2022 Registered Referred [facility] [facility] Start: 10-15-2022 End: 10-15-2022 Departed Referred [facility] [employer] [facility] Start: 10-15-2022 Registered [facility] [employer] [facility] Start: 09-27-2022 End: 09-27-2022 ambulatory [facility] Work Phone: Start: 09-27-2022 End: 09-27-[address] [facility] Start: 09-27-2022 [facility] Start: 09-17-2022 End: 09-17-2022 ambulatory [facility] Work Phone: Start: 09-17-2022 End: 09-17-2022 Departed Referred [facility] [employer] Start: 09-17-2022 [facility]istered [facility] Start: 08-27-2022 End: 08-27-2022 Patient encounter procedure Luz Daniel MD Work Phone: [facility] [place] Comment on above: Rheumatoid arthritis involving both hands 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 rheumatoid factor (HCC) (Primary Dx) Start: 08-27-2022 End: 08-27-2022 [facility] Start: 08-27-2022 Registered [facility] [employer] [facility] Start: 08-23-2022 End: 08-23-2022 ambulatory [facility] Work Phone: Start: 08-23-2022 End: 08-23-[address] [facility] Start: 08-23-2022 Registered [facility] [employer] [facility] Start: 08-12-2022 End: 08-12-2022 ambulatory [facility] Work Phone: Start: 08-12-2022 End: 08-12-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); Stage 3a chronic kidney disease (HCC) Start: 07-27-2022 ambulatory Anthony Olivares MD Work Phone: [facility] Start: 07-15-2022 End: 07-15-2022 ambulatory [facility] Work Phone: Start: 07-15-2022 End: 07-15-2022 Departed Referred [facility] [employer] Start: 07-15-2022 [facility] Start: 06-28-2022 End: 06-28-2022 ambulatory [facility] Work Phone: Start: 06-28-2022 End: 06-28-2022 Departed Referred [facility] [employer] Start: 06-28-2022 Registered Referred [facility] [employer] Start: 06-17-2022 End: 06-17-2022 ambulatory [facility] Work Phone: Start: 06-17-2022 End: 06-17-2022 Departed Referred [facility] [employer] Start: 05-27-2022 End: 05-27-[address] [facility] Start: 05-20-2022 End: 05-20-2022 Departed Referred [facility] [employer] Start: 05-05-2022 Patient encounter procedure Anthony Olivares MD Work Phone: [facility] Comment on above: Granulomatosis with polyangiitis with [...] (HCC) Start: 04-27-2022 End: 04-27-2022 Departed Referred [facility] Start: 04-27-2022 Registered Ref[facility] Start: 04-22-2022 End: 04-22-2022 Departed Referred [facility] Start: 04-22-2022 Registered Referred [facility] Start: 04-21-2022 End: 04-21-2022 Departed Referred [facility] [employer] Start: 04-21-2022 Registered [facility] Start: 04-06-2022 End: 04-06-2022 Departed Referred [facility] [employer] Start: 04-06-2022 Registered Referred [facility] Start: 04-05-2022 End: 04-05-2022 Departed Referred [facility] Start: 04-05-2022 Registered Referred [facility] Start: 04-02-2022 End: 04-02-2022 Departed Referred [facility] Start: 04-02-2022 Registered [facility] Start: 03-30-2022 Orders Only Anthony Olivares MD Work Phone: [facility] [place] Comment on above: Granulomatosis with polyangiitis, unspecified whether renal involvement (HCC) (Primary Dx) Start: 03-25-2022 End: 03-25-[address] [facility] Start: 03-25-2022 Registered [facility] [employer] [facility] Start: 03-19-2022 End: 03-19-[address] [facility] Start: 03-19-2022 Registered [facility] [employer] [facility] Start: 02-25-2022 End: 02-25-[address] Start: 02-25-2022 Registered Ref[facility] [employer] [facility] Start: 02-18-2022 End: 02-18-[address] [facility] Start: 01-28-2022 End: 01-28-[address] Start: 01-28-2022 Registered Ref[facility] [employer] [facility] Start: 01-25-2022 End: 01-25-[address] [facility] Start: 01-25-2022 Registered Referred [facility] [employer] [facility] Start: 01-04-2022 End: 01-04-[address] Start: 01-04-2022 Registered Referred [facility] [employer] [facility] Start: 12-07-2021 End: 12-07-[address] [facility] Start: 12-03-2021 Registered Referred [facility] [facility] Start: 11-09-2021 Registered Referred [facility] [employer] [facility] Start: 11-05-2021 Registered Ref[facility] [employer] [facility] Start: 10-28-2020 End: 11-04-2020 Evaluation and management of inpatient Otf Long Work Phone: [facility] [employer] Comment on above: Pneumonia due to COV ID-19 virus (Primary Dx); Hypoxia; Hypokalemia; Stage 3 chronic kidney disease, unspecified whether stage 3a or 3b CKD Start: 11-14-2019 Encounter for genera l adult medical examination without abnormal findings [facility] Start: 11-14-2019 End: 08-05-2020 Patient encounter procedure HODA BROWNING [facility] Start: 08-06-2019 End: 08-06-2019 Patient encounter procedure HODA BROWNING [facility] Start: 10-21-2009 End: 01-29-2013 Patient encounter status Ronny Coreas MD Work Phone: [facility] Encounter for genera l adult medical examination without abnormal findings [facility] Procedures Date Procedure Procedure Detail Performing Clinician Start: 05-02-[address] [place] [address] Elgin Bal MD Work Phone: Start: 04-24-[address] [place] [address] Elgin Bal MD Work Phone: Start: 04-24-2025 Serum inorganic phos phate measurement Dr. Elgin Bal MD Work Phone: Start: 04-01-[address] [place] [address] Elgin Bal MD Work Phone: Start: 02-27-[address] [place] [address] Elgin Bal MD Work Phone: Start: 01-30-[address] [place] [address] Elgin Bal MD Work Phone: Start: 01-03-[address] Elgin Bal MD Work Phone: Start: 01-03-2025 Urine microalbumin/creatinine ratio measurement Dr. Elgin Bal MD Work Phone: Comment on above: Test not performed Start: 01-02-2025 Assay of phosphorus inorganic Dr. Elgin Bal MD Work Phone: Start: 01-02-[address] [place] [address] Elgin Bal MD Work Phone: [...] 05-05-2022 Radex foot complete minimum 3 views Inderprchandana Daniel MD Work Phone: Start: 04-22-2022 Urine [...] Start: 11-04-2020 MANUAL DIFFERENTIAL Imo la K Osapay Work Phone: Start: 11-03-2020 Radiologic exam ches t 2 views Imola K Osapay Work Phone: Start: 11-03-2020 ADD ON LAB TEST Imola K Os[facility]ay Work Phone: Start: 11-03-2020 Blood count complete auto&auto difrntl wbc Imola K Os[place] Work Phone: Start: 11-03-2020 MANUAL DIFFERENTIAL Imo la K [facility] Work Phone: Start: 11-03-2020 Procalcitonin (pct) Imo la K [place] Work Phone: Start: 11-02-2020 Assay of ferritin Imola K Osapay Work Phone: Start: 11-02-2020 Blood count complete auto&auto difrntl wbc Imola K Os[place] Work Phone: Start: 11-02-2020 Blood count complete automated Imola K Os[facility] Work Phone: Start: 11-02-2020 C-reactive protein Imol a K [facility] Work Phone: Start: 11-02-2020 Fibrin dgradj produc ts d-dimer quantitative Imola K Os[facility] Work Phone: Start: 11-02-2020 Fibrinogen activity Imo la K [facility] Work Phone: Start: 11-02-2020 Lactate dehydrogenase ldh [...] Phone: Start: 10-29-2020 C-reactive protein Imol a K Patrickpay Work Phone: Start: 10-29-2020 Fibrin dgradj produc ts d-dimer quantitative Imola K [facility] Work Phone: Start: 10-29-2020 Fibrinogen activity Imo la K [facility] Work Phone: Start: 10-29-2020 Lactate dehydrogenase ldh Imola K Osapay Work Phone: Start: 10-29-2020 Procalcitonin (pct) Imo la K [facility] Work Phone: Start: 10-28-2020 Urnls dip stick/tabl et rgnt auto w/o microscopy Andrew Silver Work Phone: Start: 10-28-2020 POCT ARTERIAL Otf schrader Work Phone: Start: 10-28-2020 Assay of [...] ecg w/le ast 12 lds w/i&r Andrew Silver Work Phone: Start: 10-28-2020 Radiologic exam ches t single view Andrew Silver Work Phone: Start: 10-28-2020 RESPIRATORY PANEL, MOLECULAR, WITH COVID-19 Imola K Emily Work Phone: Start: 05-05-2020 Urinalysis HODA WYATT Comment on above: Result Comment: URIN ALYSIS Performed By: #### [id number] #### [place] [id number] Start: 04-08-2020 Urinalysis HODA WYATT Comment on above: Result Comment: URIN ALYSIS Performed By: #### [id number] #### [place] [id number] Start: 02-04-2020 Urinalysis HODA WYATT Comment on above: Result Comment: URIN ALYSIS Performed By: #### [id number] #### [place] [id number] Start: 01-07-2020 Urinalysis HODA WYATT Comment on above: Result Comment: URIN ALYSIS Performed By: #### [id number] #### [place] [id number] Start: 12-10-2019 Urinalysis HODA GOODRICHELIJAH Comment on above: Result Comment: URIN ALYSIS Performed By: #### [id number] #### [place] [id number] Start: 11-05-2019 Urinalysis HODA WYATT Comment on above: Result Comment: URIN ALYSIS Performed By: #### [id number] #### [place] [id number] Start: 10-08-2019 Urinalysis HODA WYATT Comment on above: Result Comment: URIN ALYSIS Performed By: #### [id number] #### [place] [id number] Start: 09-10-2019 Urinalysis HODA WYATT Comment on above: Result Comment: URIN ALYSIS Performed By: #### [id number] #### [place] [id number] Start: 08-10-2019 Adult depression scr eening assessment Anthony Olivares MD Work Phone: Start: 08-06-2019 Urinalysis HODA GOODRICHELIJAH Comment on above: Result Comment: URIN ALYSIS Performed By: #### [id number] #### [place] [id number] Start: 07-23-2019 Colonoscopy Anthony rosa MD Work Phone: Start: 08-09-2018 Lipid 1996 panel - S ellen or Plasma Luz Daniel MD Work Phone: Urine culture Urine culture Plan of Treatment Date Care Activity Detail Author Start: 12-20-2028 Lipid panel Lipid Screening [facility] Start: 12-20-2026 Diabetes Screening Diabetes Screenin g [facility] Start: 09-16-2025 End: 09-16-2025 Patient encounter procedure 09/16/2025 9:00 AM EST Office Visit [facility] General Rheumatology and Arthritis [address] [facility] [address] [place] [address] Dorota Smith MD [address] [place], [place] [id number] 6 months in office PA [facility] General Rheumatology and Arthritis Comment on above: 6 months in office P A Start: 09-14-2025 BP Controlled (<130/80) BP Controlle d (<130/80) [facility] Start: 07-17-2025 BP Controlled (<130/80) BP Controlle d (<130/80) [facility] Start: 07-15-2025 Influenza vaccination Influenza Vacc ine (#1) [facility] Start: 05-23-2025 End: 05-23-2025 Patient encounter procedure 05/23/2025 4:00 PM EDT Office Visit [facility] [address] [address] Anthony Olivares MD [address] [place] [place], [place] [id number] Virtual f/u per Dr Olivares.I spoke with Nursing Facility where patient is at [facility] Comment on above: Virtual f/u per Dr Leonie herrrea.I spoke with Nursing Facility where patient is at Start: 03-20-2025 End: 03-20-2025 Patient encounter procedure 03/20/2025 9:00 AM EDT Office Visit [facility] [place] General Rheumatology and Arthritis [address] [facility] [address] [place], [place] [id number] Leeann Lopez PA-Cori [address] [place], [place] [id number] 6 [facility] Comment on above: 6 months in office P A Start: 02-26-2025 End: 02-26-2025 Patient encounter procedure 02/26/2025 9:00 AM EDT Appointment Infusion Center [address] [place] [phone] Dr Elise Jack, granulomatosis, () Infusion Center Comment on above: Dr Elise Jack, granulomatosis, () Start: 02-20-2025 Covid-19 Vaccine (9 - Pfizer risk season) Covid-19 Vaccine (9 - Pfizer risk ) [facility] Start: 12-20-2024 BP Controlled (<130/80) BP Controlle d (<130/80) [facility] Start: 12-20-2024 Complete blood count Hemoglobin/Timo tocrit [facility] Start: 12-20-2024 Creatinine measurement Serum Creatin ine [facility] Start: 11-20-2024 End: 11-20-2024 Patient encounter procedure 11/20/2024 11:00 AM EST Office Visit [facility] [address] [address] Anthony Olivares MD [address] [place] [address] follow up in October per Dr Olivares [facility] Comment on above: follow up in per Dr Olivares Start: 11-14-2024 Medicare Advantage Annual Wellness Visit Medicare Advantage Annual Wellness Visit [facility] Start: 10-17-2024 Covid-19 Vaccine () Covid-19 Vaccine () [facility] Start: 09-14-2024 End: 09-14-2024 Patient encounter procedure 09/14/2024 9:00 AM EDT Office Visit [facility] [place] General Rheumatology and Arthritis [address] [facility] [address] [place], [place] [id number] Dorota Smith MD [address] [facility] [address] [place] [address] RA/Trans [facility] Comment on above: RA/Trans from Dr Ruben welsh to Sarah Start: 08-09-2024 End: 08-09-2024 Patient encounter procedure 08/09/2024 7:00 AM EDT Appointment Infusion Center [address] [place] [phone] Julia huang simon(REGAN) Infusion Center Comment on above: Julia huang simon(RK) Start: 07-17-2024 End: 07-17-2024 Patient encounter procedure 07/17/2024 11:20 AM EDT Office Visit [facility] [address] [address] Anthony Olivares MD [address] [place] [address] Vasculitis Renal follow up [facility] Comment on above: Vasculitis Renal fol low up Start: 07-15-2024 Covid-19 Vaccine () Covid-19 Vaccine () [facility] Start: 07-15-2024 Covid-19 Vaccine () Covid-19 Vaccine () [facility] Start: 07-15-2024 Influenza vaccination Influenza Vacc ine (#1) [facility] Start: 05-21-2024 End: 05-21-2024 Patient encounter procedure 05/21/2024 9:20 AM EDT Office Visit [facility] General Rheumatology and Arthritis [address] [place], [place] [id number] Dorota Smith MD [address] [place], [place] [id number] RA/Trans from Dr Daniel to [facility] General Rheumatology and Arthritis Comment on above: RA/Trans from Dr Ruben welsh to [facility] Start: 03-09-2024 Lipid panel Lipid Screening [facility] Start: 02-21-2024 PROSTATE CANCER SCREENING DISCUSSION PROSTATE CANCER SCREENING DISCUSSION [facility] Start: 02-21-2024 Prostate specific antigen measurement Prostate Cancer Screening Discussion [facility] Start: 12-20-2023 End: 03-20-2024 25-hydroxyvitamin D3 [Mass/volume] in Serum or Plasma [facility] Work Phone: Comment on above: Expected: 12/20/2023 , Expires: 03/20/2024 Start: 12-12-2023 Covid-19 Vaccine () Covid-19 Vaccine () [facility] Start: 11-14-2023 Behavioral Health Screening Behavioral Health Screening [facility] Start: 11-14-2023 Depression Assessment [facility] Ass [facility] Start: 11-04-2023 Diabetes Screening Diabetes Screenin g [facility] Start: 11-03-2023 BP CONTROLLED (<130/80) BP CONTROLLE D (<130/80) [facility] Start: 09-18-2023 DIABETES SCREEN DIABETES SCREEN [facility] Start: 09-18-2023 Diabetes Screening Diabetes Screenin g [facility] Start: 08-09-2023 Lipid 1996 panel - S ellen or Plasma Lipid Screening [facility] Start: 08-09-2023 LIPID SCREEN LIPID SCREEN [facility] Start: 07-15-2023 Covid-19 Vaccine ( season) Covid-19 Vaccine () [facility] Start: 07-15-2023 Influenza vaccination [facility] Start: 2023 RSV Vaccine (1 - 1-d ose 60+ series) RSV Vaccine (1 - 1-dose 60+ series) [facility] Start: 2023 RSV Vaccine (1 - Ris k 60-74 years 1-dose series) RSV Vaccine (1 - Risk 60-74 years 1-dose series) [facility] Start: 11-14-2022 [facility]MENT [facility] Start: 11-03-2022 End: 11-03-2023 Chronic hepatitis differentiation between hepatitis B and C virus panel - Serum or Plasma HEP REMOTE PANEL BL Lab Routine 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) Expected: 11/03/2022, Expires: 11/03/2023 [facility] Work Phone: Comment on above: Expected: 11/03/2022 , Expires: 11/03/2023 Start: 07-23-2022 Colonoscopy COLONOSCOPY [facility] Start: 07-23-2022 COLORECTAL CANCER SCREENING COLORECTAL CANCER SCREENING [facility] Start: 07-23-2022 Screening for malign ant neoplasm of colon [facility] Start: 07-15-2022 Influenza vaccination INFLUENZA (#1) [facility] Start: 04-29-2022 COVID-19 VACCINE (6 - Booster for Pfizer series) COVID-19 VACCINE (6 - Booster for Pfizer series) [facility] Start: 01-04-2022 COVID-19 VACCINE (5 - Booster for Pfizer series) COVID-19 VACCINE (5 - Booster for Pfizer series) [facility] Start: 11-14-2021 DEPRESSION ASSESSMENT DEPRESSION ASS ESSMENT [facility] Start: 11-04-2021 Creatinine measurement [facility] Start: 11-04-2021 Potassium monitoring Potassium monit oring [place], [place] Start: 11-02-2021 HEMOGLOBIN/HEMATOCRIT HEMOGLOBIN/HEM ATOCRIT [facility] Start: 09-18-2021 SERUM CREATININE SERUM CREATININE [facility] Start: 11-09-2020 Influenza vaccination LUNG CANCER SC REENING [facility] Start: 11-09-2020 Screening for malign ant neoplasm of lung Lung Cancer Screening [facility] Start: 08-10-2020 Adult depression screening assessment DEPRESSION SCREENING [facility] Start: 07-15-2020 Influenza vaccination Flu vaccine (# 1) [place], [place] Start: 02-21-2020 ANNUAL PCP TEAM ENDODONTIC ASSISTANT DIPTI DISEASE VISIT ANNUAL PCP TEAM CHRONIC DISEASE VISIT [facility] Start: 07-10-2019 PNEUMOCOCCAL (3 - PP SV23 if available, else PCV20) PNEUMOCOCCAL (3 - PPSV23 if available, else PCV20) [facility] Start: 07-10-2019 PNEUMOCOCCAL (3 - PP SV23 or PCV20) PNEUMOCOCCAL (3 - PPSV23 or PCV20) [facility] Start: 07-10-2019 Pneumococcal vaccination Pneum ococcal Vaccine (3 - PPSV23 or PCV20) [facility] Start: 09-04-2018 Pneumococcal vaccination Pneum ococcal Vaccine (3 of 3 - PPSV23 or PCV20) [facility] Start: 08-16-2014 TWO PNEUMOVAX 5 YEAR S APART PRIOR TO AGE 65 (#2) TWO PNEUMOVAX 5 YEARS APART PRIOR TO AGE 65 (#2) [facility] Start: 2013 SHINGRIX VACCINE (1 of 2) SHINGRIX VACCINE (1 of 2) [facility] Start: 2008 COLOGUARD (FIT-DNA) COLOGUARD (FIT-D NA) [facility] Start: [address] COLONOGRAPHY [facility] Start: 2008 FECAL OCCULT BLOOD FECAL OCCULT BLOO D [facility] Start: 2008 Screening for malign ant neoplasm of colon [facility] Start: 2008 SIGMOIDOSCOPY [facility]MO[facility]OSCOPY [facility] Start: 1982 SHINGRIX VACCINE (1 of 2) SHINGRIX VACCINE (1 of 2) [facility] Start: 1982 Urine microalbumin profile [facility] Start: 1981 Annual PCP Team Line Driver dipti Disease Visit Annual PCP Team Chronic Disease Visit [facility] Start: 1981 Anxiety Screening Anxiety Screening [facility] Start: 1981 BP CONTROLLED (<130/80) BP CONTROLLE D (<130/80) [facility] Start: 1981 Depression Screening Depression Scre ening [facility] CBC Auto Differential CBC Auto D ifferential Lab Routine Daily until discontinued starting 11/03/2020, 2 completed [email or web address] [facility], [place] Comment on above: Daily until disconti nued starting 11/03/2020, 2 completed End: 12-19-2024 CBC W Auto Differential panel - Blood CBC + DIFF Lab Routine Stage 3b chronic kidney disease (HCC) 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) Once per month for 13 Occurrences starting 12/20/2023 until 12/19/2024, 1 completed [facility] Work Phone: Comment on above: Once per month for 1 3 Occurrences starting 12/20/2023 until 12/19/2024, 1 completed End: 05-23-2026 CBC W Auto Differential panel - Blood COMPLETE BLOOD COUNT AND DIFFERENTIAL Lab Routine 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) Every 2 months for 7 Occurrences starting 05/23/2025 until 05/23/2026 [facility] Comment on above: Every 2 months for 7 Occurrences starting 05/23/2025 until 05/23/2026 End: 12-19-2024 Comprehensive metabolic 2000 panel - Serum or Plasma COMP METABOLIC PANEL Lab Routine Stage 3b chronic kidney disease (HCC) 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) Once per month for 13 Occurrences starting 12/20/2023 until 12/19/2024, 1 completed [facility] Work Phone: Comment on above: Once per month for 1 3 Occurrences starting 12/20/2023 until 12/19/2024, 1 completed End: 05-23-2026 Comprehensive metabolic 2000 panel - Serum or Plasma COMPREHENSIVE METABOLIC PANEL Lab Routine 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) Every 2 months for 7 Occurrences starting 05/23/2025 until 05/23/2026 [facility] Work Phone: Comment on above: Every 2 months for 7 Occurrences starting 05/23/2025 until 05/23/2026 Comprehensive Metabo lic Panel w/ Reflex to MG Comprehensive Metabolic Panel w/ Reflex to MG Lab Routine Daily until discontinued starting 10/28/2020, 7 completed [facility], [place] Comment on above: Daily until disconti nued starting 10/28/2020, 7 completed Nasal Cannula Oxygen Nasal Cannu la Oxygen Respiratory Care Routine Daily until discontinued starting 10/28/2020 [place], [place] Comment on above: Daily until disconti nued starting 10/28/2020 Nebulizer therapy HHN Treatment Respiratory Care Routine 0600, 1000, 1400, 1800, 2200 until discontinued starting 10/30/2020 [facility] [place] Comment on above: 0600, 1000, 1400, 18 00, 2200 until discontinued starting 10/30/2020 Oxygen therapy [[facility] Data Set] Initiate Oxygen Therapy Protocol Respiratory Care Routine Daily until discontinued starting 10/28/2020 [place], [place] Comment on above: Daily until disconti nued starting 10/28/2020 End: 12-19-2024 Phosphate [Mass/volume] in Serum or Plasma PHOSPHORUS INORGANIC Lab Routine Stage 3b chronic kidney disease (HCC) 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) Once per month for 13 Occurrences starting 12/20/2023 until 12/19/2024, 1 completed [facility] Work Phone: Comment on above: Once per month for 1 3 Occurrences starting 12/20/2023 until 12/19/2024, 1 completed End: 05-23-2026 Phosphate [Mass/volume] in Serum or Plasma PHOSPHORUS INORGANIC Lab Routine 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) Every 2 months for 7 Occurrences starting 05/23/2025 until 05/23/2026 [facility] Comment on above: Every 2 months for 7 Occurrences starting 05/23/2025 until 05/23/2026 End: 12-19-2024 Protein/Creatinine [Mass Ratio] in Urine PROTEIN CREATININE RATIO Lab Routine 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) Once per month for 13 Occurrences starting 12/20/2023 until 12/19/2024 [facility] Work Phone: Comment on above: Once per month for 1 3 Occurrences starting 12/20/2023 until 12/19/2024 UA DIP, URINE (POC) UA DIP, URIN E (POC) Lab Routine Screening for genitourinary condition 1 Occurrences starting 11/20/2024 [facility] Work Phone: Comment on above: 1 Occurrences starti ng 11/20/2024 End: 12-19-2024 Urinalysis complete panel - Urine URINALYSIS, WITH MICROSCOPIC Lab Routine 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) Once per month for 13 Occurrences starting 12/20/2023 until 12/19/2024 [facility] Work Phone: Comment on above: Once per month for 1 3 Occurrences starting 12/20/2023 until 12/19/2024 End: 05-23-2026 Urinalysis complete panel - Urine URINALYSIS, WITH MICROSCOPIC Lab Routine 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) Every 2 months for 7 Occurrences starting 05/23/2025 until 05/23/2026 [facility] Comment on above: Every 2 months for 7 Occurrences starting 05/23/2025 until 05/23/2026 [facility]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 (Routine) - Closed Specialty Diagnoses / Procedures Referred By Contac t Referred To Contact XR IMAGING Diagnoses Chronic pain of right knee Procedures XR KNEE LIMITED 2V AP/LAT RIGHT RADIOLOGIC EXAMINATION KNEE 1/2 VIEWS Luz Daniel MD [address] [place] [address] Xr Imaging Referral ID Status Reason Start Date Expiration Date V isits Requested Visits Authorized [id number] Closed Auto-Generate d Referral 02/26/2022 03/28/2023 1 1 * Diagnostic Procedure Only (Routine) - Closed Specialty Diagnoses / Procedures Referred By Contac t Referred To Contact XR IMAGING Diagnoses Rheumatoid arthritis involving both hands 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 rheumatoid factor (HCC) Procedures XR FOOT GENERAL 3V AP/LAT/OBL RIGHT RADEX FOOT COMPLETE MINIMUM 3 VIEWS Luz Daniel MD [address] [place] [address] Xr Imaging Referral ID Status Reason Start Date Expiration Date V isits Requested Visits Authorized [id number] Closed Auto-Generate d Referral 02/26/2022 03/28/2023 1 1 * Diagnostic Procedure Only (Routine) - Closed Specialty Diagnoses / Procedures Referred By Contac t Referred To Contact XR IMAGING Diagnoses Rheumatoid arthritis involving both hands 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 rheumatoid factor (HCC) Procedures XR FOOT GENERAL 3V AP/LAT/OBL LEFT RADEX FOOT COMPLETE MINIMUM 3 VIEWS Luz Daniel MD [address] [place] [address] Xr Imaging Referral ID Status Reason Start Date Expiration Date V isits Requested Visits Authorized [id number] Closed Auto-Generate d Referral 02/26/2022 03/28/2023 1 1 * Diagnostic Procedure Only (Routine) - Closed Specialty Diagnoses / Procedures Referred By Contac t Referred To Contact XR IMAGING Diagnoses Rheumatoid arthritis involving both hands 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 rheumatoid factor (HCC) Procedures XR HAND GENERAL 3V PA/LAT/OBL RIGHT RADEX HAND MINIMUM 3 VIEWS Luz Daniel MD [address] [place] [address] Xr Imaging Referral ID Status Reason Start Date Expiration Date V isits Requested Visits Authorized [id number] Closed Auto-Generate d Referral 02/26/2022 03/28/2023 1 1 * Diagnostic Procedure Only (Routine) - Closed Specialty Diagnoses / Procedures Referred By Contac t Referred To Contact XR IMAGING Diagnoses Rheumatoid arthritis involving both hands 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 rheumatoid factor (HCC) Procedures XR HAND GENERAL 3V PA/LAT/OBL LEFT RADEX HAND MINIMUM 3 VIEWS Luz Daniel MD [address] [place] [address] Xr Imaging Referral ID Status Reason Start Date Expiration Date V isits Requested Visits Authorized [id number] Closed Auto-Generate d Referral 02/26/2022 03/28/2023 1 1 [facility] (narrative)No reason for referral information availableWSalem City Hospital Work Phone: Reason for visit Narrative* [place] Prior Authorization (Routine) - Authorized Specialty Diagnoses / Procedures Referred By Contac t Referred To Contact Diagnoses 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) Procedures INJ RUXIENCE, 10 MG Anthony Olivares MD [address] [place] [place] [address] Phone: tel: fax: Anthony Olivares MD [address] [place] [place] [address] Phone: tel: fax: Referral ID Status Reason Start Date Expiration Date V isits Requested Visits Authorized [id number] Authorized 01/30/2025 01/31/2026 2 2 [facility] Summary Purpose Family History Relationship Condition Age at Onset Recorded Date/T [...] wn March 02, 2019 2:49pm Advance Directives Latest Code Status on File Code Status Date Activated Date Inactivated Comments Full Code 10/28/2020 7:36 PM Advance Directive Response Recorded Date/ Time Advance Directives No July 1:38am Living Will No March 02, 2019 1:12pm Power of Enrollment Coordinator No March 02 1:12pm Documents on File Type Date Recorded Patient Employment Evaluator/Case Manager Expl anation Advance Directive(s) 08/17/2019 7:16 PM Advance Directive(s) 08/14/2019 9:32 AM Advance Directive(s) 07/23/2019 12:21 PM Advance Directive(s) 01/05/2019 9:49 AM Advance Directive(s) 06/12/2018 10:01 AM Advance Directive(s) 08/24/2016 10:32 PM Advance Directive(s) 08/11/2016 2:31 PM Documents on File Type Date Recorded Patient Employment Evaluator/Case Manager Expl anation Advance Directive(s) 08/17/2019 7:16 PM Advance Directive(s) 08/14/2019 9:32 AM Advance Directive(s) 07/23/2019 12:21 PM Advance Directive(s) 01/05/2019 9:49 AM Advance Directive(s) 06/12/2018 10:01 AM Advance Directive(s) 08/24/2016 10:32 PM Advance Directive(s) 08/11/2016 2:31 PM Advance Directive Response Recorded Date/ Time Advance Directives No July 12:38am Living Will No March 02, 2019 12:12pm Power of Enrollment Coordinator No March 02 12:12pm Advance Directive Response Recorded Date/ Time Advance Directives No July 12:38am Advance Directive Response Recorded Date/ Time Advance Directives No July 1:38am Hospital Course Note Hospitalist Discharge Summar y Reggie León : 1965 Admit date: 10/28/2020 [...] with shortness of breath and hypoxia from [facility]. He had a positive COVID19 test (more [...] 10/28/20 0000 -- -- -- Aminah León [phone] Admitting Physician: Farrukh Diaz MD PCP: No primary care provider on file. Discharging Nurse: [facility] Unit/Room#: 968/4681 Discharging Unit Phone Number: [phone] Emergency Contact: No emergency contact information on [...] Casillas RN 11/05/20 11/12/20 10/14/2020 Documentation in [place] Disease Reporting System of positive COVID - [...] Assisted Dressing Assisted Toileting Independent Feeding Independent Unemployment Insurance Director Assisted Med Delivery whole Wound Care Documentation [...] Readmission: 20 Discharging to Facility/ Agency Name: [facility] Address: [address] [place] [id number] Dialysis Facility (if applicable) Name: Address: Dialysis Schedule: Phone: Fax: Housekeeping Aid/Stitch Bonding Machine Drawer In signature: at12:24 PM EST PHYSICIAN SECTION Prognosis: [...] 3:42 PM EST Report given to Yesenia jiang [place]. * Amarsi Ibrahim RCP - 11/04/2020 12:15 PM EST [facility] Respiratory Care Department Progress Note SpO2 [...] Daniel MD - 11/03/2020 6:05 PM EST [facility] Nephrology Progress Note Subjective/ 55 [...] Daily Farrukh Diaz MD 5 mg at 11/03/2053 melatonin tablet 3 mg 3 mg Oral [...] in remission from renal perspective. No urgent PRIMARY EDUCATION PROFESSOR indications. Will follow. [facility] * Farrukh Diaz MD - 11/03/2020 1:09 PM EST Hospitalist Progress Note 11/03/2020 1:09 PM [phone]: Please page ar [phone] for patient care issues. [phone]: Please page [facility] Hospitalist for any issues. Subjective: Admit Date: [...] 7 9 5 LIVER PROFILE: Recent Labs 11/01/20 0235 11/02/207 11/03/20 0236 AST 135* 104* 63* ALT 173* 198* [...] of Hospitalist Medicine Inpatient Medical Services PAGER: [phone] * Piyush Daniel MD - 11/02/2020 10:00 PM EST [facility]phrology Progress Note Subjective/ 55 [...] Diaz MD 40 mg at 11/02/20 0810 hydroxychloroquine (PLAQUENIL) tablet 100 mg 100 mg Oral Daily Farrukh Diaz MD 100 mg at 11/02/20 0809 lithium capsule 300 mg 300 mg Oral Nightly Farrukh Diaz MD 300 mg at 11/02/202009 cetirizine (ZYRTEC) tablet 5 mg 5 mg Oral Daily Farrukh Diaz MD 5 mg at 11/02/20 08 melatonin tablet 3 mg 3 mg Oral Nightly Farrukh Diaz MD 3 mg at 11/02/202009 omega-3 acid ethyl esters (LOVAZA) capsule 1 capsule 1 capsule Oral Daily Farrukh Diaz MD 1 capsule at 11/02/20 08 pantoprazole (PROTONIX) tablet 40 mg 40 mg Oral QAM AC Farrukh Diaz MD 40 mg at 11/02/20 08 paliperidone (INVEGA) extended release tablet 6 mg 6 mg Oral QAM Farrukh Diaz MD 6 mg at 11/02/20809 QUEtiapine (SEROQUEL XR) extended release tablet 600 mg 600 mg Oral Nightly Farrukh Diaz MD 600 mg at 11/02/202009 Data/ Recent Labs 10/31/20 0221 11/02/20 0317 WBC 9.5 13.0* HGB 12.0* 13.2 HCT 35.7* 39.5* MCV 86.3 87.8 PLT 294 340 Recent Labs 10/31/20 0221 11/01/20 0235 11/02/20 0317 NA 136 137 137 K 3.8 [...] remission atleast from renal perspective. No urgent PRIMARY EDUCATION PROFESSOR indications. Will follow. [facility] * Farrukh Diaz MD - 11/02/2020 3:16 PM EST Hospitalist Progress Note 11/02/2020 3:16 PM [phone]: Please page ar [phone] for patient care issues. [phone]: Please page [facility] night Hospitalist for any issues. Subjective: [...] rashes or lesions. LABS: CBC: Recent Labs 10/31/2022011/02/20316 WBC 9.5 13.0* RBC 4.14* 4.49 HGB [...] of Hospitalist Medicine Inpatient Medical Services PAGER: [phone] * Piyush Daniel MD - 11/01/2020 8:04 PM EST [facility] Nephrology Progress Note Subjective/ 57 [...] 118/86 139/81 Pulse: 85 115 68 Resp: 18 20 18 Temp: 96 F (35.6 C) 96.2 F [...] tablet 6 mg 6 mg Oral Daily Farruhk Diaz MD 6 mg at 11/01/20 0829 [...] Intravenous Q24H Farrukh Diaz MD Stopped at 10/31/202312 0.9 % sodium chloride bolus 30 mL Intravenous PRN Farrukh Diaz MD atorvastatin (LIPITOR) tablet 20 mg 20 mg Oral Daily Farrukh Diaz MD 20 mg at 11/01/20 08 cyclobenzaprine (FLEXERIL) tablet 10 mg 10 [...] Daily Farrukh Diaz MD 50 mg at 11/01/2030 omega-3 acid ethyl esters (LOVAZA) capsule 1 capsule 1 capsule Oral Daily Farrukh Diaz MD 1 capsule at 11/01/20 0828 pantoprazole (PROTONIX) tablet 40 mg 40 mg Oral QAM AC Farrukh Diaz MD 40 mg at 11/01/20 0830 paliperidone (INVEGA) extended release tablet 6 mg 6 mg Oral QAM Farrukh Diaz MD 6 mg at 11/01/20 08 QUEtiapine (SEROQUEL XR) extended release tablet 600 mg 600 mg Oral Nightly Farrukh Diaz MD 600 mg at 10/31/202122 Data/ Recent Labs 10/31/20220 WBC 9.5 HGB 12.0* HCT 35.7* MCV 86.3 PLT 294 Recent Labs 10/30/20 0116 10/31/20 02211/01/20 0235 NA 140 136 137 K 4.0 [...] remission atleast from renal perspective. No urgent PRIMARY EDUCATION PROFESSOR indications. Will follow. [facility] * Farrukh Diaz MD - 11/01/2020 3:07 PM EST Hospitalist Progress Note 11/01/2020 3:08 PM [phone]: Please page ar [phone] for patient care issues. [phone]: Please page [facility] Hospitalist for any issues. Subjective: Admit Date: [...] RDW 14.0 PLT 294 BMP: Recent Labs 10/30/206 10/31/2022011/01/20 0235 NA 140 136 137 K 4.0 [...] Directive: Full Code Discharge planning: TBD Farrukh iDaz MD Division of Hospitalist Medicine Inpatient Medical Services PAGER: [phone] * Mia Noyola RCP - 11/01/2020 12:00 [...] EST Hospitalist Progress Note 11/01/2020 11:33 AM [phone]: Please page ar [phone] for patient care issues. [phone]: Please page [facility] Hospitalist for any issues. Subjective: Admit Date: [...] Oral Daily ipratropium-albuterol 1 ampule Inhalation Q4H MN sulfamethoxazole-trimethoprim 1 tablet Oral Once per day [...] PLT 294 BMP: Recent Labs 10/30/20 0116 10/31/20 0221 11/01/20 [...] of Hospitalist Medicine Inpatient Medical Services PAGER: [phone] * Bakari Hdz MD - 10/31/2020 9:35 AM EST [facility] Nephrology Progress Note [...] solution 1 ampule 1 ampule Inhalation Q4H MN Farrukh Diaz MD 1 ampule at 10/30/202226 sulfamethoxazole-trimethoprim (BACTRIM DS;SEPTRA DS) 800-160 MG per [...] Intravenous Q24H Farrukh Diaz MD Stopped at 10/30/204 0.9 % sodium chloride bolus 30 mL [...] Daily Farrukh Diaz MD 5 mg at 10/30/201037 melatonin tablet 3 mg 3 mg Oral [...] to restart home lasix dose today since creterra improvinig Continue to hold Losartan. No changes needed to immunosuppressive therapy. May need to institute the antibiotic 3x/week the one he was on outpatient. 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 D/w IMS. No urgent PRIMARY EDUCATION PROFESSOR indications. Will follow. [facility] * Farrukh Diaz MD - 10/30/2020 3:50 PM EST Hospitalist Progress Note 10/30/2020 3:50 PM [phone]: Please page ar [phone] for patient care issues. [phone]: Please page [facility] night Hospitalist for any issues. Subjective: [...] Panel. _ Expected Result: Not Detected The [employer] Upper Respiratory Pathogens PCR Panel can detect [...] management decisions. This assay was developed by [employer] and distributed under an Emergency Use Authorization (EUA) granted by the FDA for the qualitative detection of SARS-CoV-2 nucleic acid. Provider and patient fact sheets can be found at https://www.fda. gov/media/521332/download and https://www.fda.gov/media/636026/download. Assessment / Plan 1. Acute hypoxic respiratory [...] of Hospitalist Medicine Inpatient Medical Services PAGER: [phone] * Bakari Hdz MD - 10/30/2020 10:18 AM EST [facility] Nephrology Progress Note Subjective/ 55 [...] Farrukh Diaz MD 6 mg at 10/29/20 0825 guaiFENesin-dextromethorphan (ROBITUSSIN DM) 100-10 MG/5ML syrup 5 [...] Daily Farrukh Diaz MD 40 mg at 10/29/20 08 hydroxychloroquine (PLAQUENIL) tablet 100 mg 100 mg Oral Daily Farrukh Diaz MD 100 mg at 10/29/20 08 lithium capsule 300 mg 300 mg Oral Nightly Farrukh Diaz MD 300 mg at 10/29/202010 cetirizine (ZYRTEC) tablet 5 mg 5 mg Oral Daily Farrukh Diaz MD 5 mg at 10/29/20 0826 melatonin tablet 3 mg 3 mg Oral Nightly Farrukh Diaz MD 3 mg at 10/29/202010 metoprolol succinate (TOPROL XL) extended release tablet 50 mg 50 mg Oral Daily Farrukh Diaz MD 50 mg at 10/29/20 0825 omega-3 acid ethyl esters (LOVAZA) capsule 1 capsule 1 capsule Oral Daily Farrukh Diaz MD 1 capsule at 10/29/20 0824 pantoprazole (PROTONIX) tablet 40 mg 40 mg [...] from renal perspective. D/w IMS. No urgent PRIMARY EDUCATION PROFESSOR indications. Will follow. [facility] * Jeanie Samuel - 10/30/2020 9:42 AM EST Nutrition rescreen completed. Patient assigned a level 1. * Farrukh Diaz MD - 10/29/2020 5:56 PM EST Hospitalist Progress Note 10/29/2020 5:56 PM [phone]: Please page ar [phone] for patient care issues. [phone]: Please page [facility] night Hospitalist for any issues. Subjective: [...] or lesions. LABS: CBC: Recent Labs 10/28/20 16110/29/20 0534 10/29/20 1115 WBC 4.6 4.4 7.8 [...] NEGATIVE: No targets were detected by the [employer] Upper Respiratory Pathogens PCR Panel. _ Expected Result: Not Detected The [employer] Upper Respiratory Pathogens PCR Panel can detect [...] management decisions. This assay was developed by [employer] and distributed under an Emergency Use Authorization (EUA) granted by the FDA for the qualitative detection of SARS-CoV-2 nucleic acid. Provider and patient fact sheets can be found at https://www.fda. gov/media/376192/download and https://www.fda.gov/media/414282/download. Assessment / Plan 1. Acute hypoxic respiratory [...] of Hospitalist Medicine Inpatient Medical Services PAGER: [phone] * Shirley Casillas RN - 10/29/2020 10:49 AM EST Documentation in [place] disease Reporting System: * Farrukh Diaz MD - 10/29/2020 9:58 AM EST Patient unable to get CTA chest due to DONNA - will hydrate and if able, will get it at a later time. * Irena Land RN - 10/29/2020 12:48 AM EST Patient moved into private bed [address] Mosley. Patients COVID test came back negative. Dr. Pro nursing supervisory examiner made aware. documented in this encounter Assessments Diagnosis Pneumonia due to COVID-19 virus- Primary Hypoxia Hypoxemia Hypokalemia Hypopotassemia Stage 3 chronic kidney disease, unspecified whether stage 3a or 3b CKD Chief Complaint and Reason for Visit Chief Complaint PRISON LAB WOR K PRISON LABWORK PRISON LABWORK PRISON LABWORK PRISON LAB WORK PRISON LABWORK Chief Complaint PRISON LABWORK PRISON LABWORK PRISON LAB WORK PRISON LABWORK PRISON LABWORK PRISON LABWORK Chief Complaint PRISON LABWORK PRISON LAB WORK PRISON LABWORK PRISON LABWORK PRISON LABWORK LABWORK PRISON LABWORK Chief Complaint PRISON LABWORK PRISON LAB WORK PRISON LABWORK PRISON LABWORK PRISON LABWORK LABWORK PRISON LABWORK LABWORK Chief Complaint PRISON LAB WOR K PRISON LABWORK PRISON LABWORK PRISON LABWORK LABWORK PRISON LABWORK LABWORK LABWORK Chief Complaint PRISON LABWORK PRISON LABWORK LABWORK PRISON LABWORK LABWORK PRISON LABWORK LABWORK PRISON LAB WORK LABWORK Chief Complaint LABWORK PRISON LABWORK LABWORK PRISON LABWORK LABWORK PRISON LAB WORK LABWORK LABWORK LABWORK Chief Complaint LABWORK PRISON LABWORK LABWORK PRISON LABWORK LABWORK PRISON LAB WORK LABWORK LABWORK LABWORK PRISON LABWORK Chief Complaint PRISON LABWORK LABWORK PRISON LABWORK LABWORK PRISON LAB WORK LABWORK LABWORK LABWORK PRISON LABWORK PRISON LABWORK Chief Complaint LABWORK LABWORK LABWORK PRISON LABWORK PRISON LABWORK PRISON LABWORK Chief Complaint LABWORK LABWORK LABWORK PRISON LABWORK PRISON LABWORK LABWORK PRISON LABWORK Chief Complaint LABWORK LABWORK PRISON LABWORK PRISON LABWORK LABWORK PRISON LABWORK PRISON LAB WORK PRISON LABWORK Chief Complaint LABWORK PRISON LABWORK PRISON LABWORK LABWORK PRISON LABWORK PRISON LAB WORK PRISON LABWORK PRISON LABWORK Chief Complaint LABWORK PRISON LABWORK PRISON LAB WORK PRISON LABWORK PRISON LABWORK LABWORK PRISON LAB WORK LABWORK Chief Complaint PRISON LABWORK PRISON LAB WORK PRISON LABWORK PRISON LABWORK LABWORK PRISON LAB WORK LABWORK LABWORK Chief Complaint PRISON LABWORK PRISON LAB WORK PRISON LABWORK PRISON LABWORK LABWORK PRISON LAB WORK LABWORK LABWORK PRISON LAB WORK Chief Complaint PRISON LABWORK LABWORK PRISON LAB WORK LABWORK LABWORK PRISON LAB WORK PRISON LABWORK Chief Complaint LABWORK PRISON LAB WORK LABWORK LABWORK PRISON LAB WORK PRISON LABWORK LABWORK PRISON LABWORK Chief Complaint PRISON LAB WOR K LABWORK LABWORK PRISON LAB WORK PRISON LABWORK LABWORK PRISON LABWORK LABWORK Chief Complaint PRISON LAB WOR K LABWORK LABWORK PRISON LAB WORK PRISON LABWORK LABWORK PRISON LABWORK LABWORK PRISON LAB WORK Chief Complaint LABWORK LABWORK PRISON LAB WORK PRISON LABWORK LABWORK PRISON LABWORK LABWORK LABWORK PRISON LAB WORK PRISON LABWORK Chief Complaint LABWORK PRISON LAB WORK PRISON LABWORK LABWORK PRISON LABWORK LABWORK LABWORK PRISON LAB WORK PRISON LABWORK LABWORK Chief Complaint PRISON LAB WOR K PRISON LABWORK LABWORK PRISON LABWORK LABWORK LABWORK PRISON LAB WORK PRISON LABWORK LABWORK LABWORK Chief Complaint LABWORK LABWORK PRISON LABWORK PRISON LABWORK LABWORK LABWORK PRISON LAB WORK PRISON LABWORK Chief Complaint PRISON LABWORK PRISON LABWORK LABWORK LABWORK PRISON LAB WORK PRISON LABWORK PRISON LAB WORK LABWORK Chief Complaint LABWORK LABWORK PRISON LAB WORK PRISON LABWORK PRISON LAB WORK LABWORK LABWORK Chief Complaint PRISON LAB WOR K PRISON LABWORK PRISON LAB WORK LABWORK LABWORK PRISON LABWORK PRISON LABWORK Chief Complaint LABWORK LABWORK PRISON LABWORK PRISON LABWORK LABWORK Chief Complaint LABWORK LABWORK PRISON LABWORK PRISON LABWORK LABWORK PRISON LAB WORK Chief Complaint LABWORK LABWORK PRISON LABWORK PRISON LABWORK LABWORK PRISON LAB WORK LABWORK Chief Complaint PRISON LABWORK PRISON LABWORK LABWORK PRISON LAB WORK LABWORK PRISON LABWORK Chief Complaint PRISON LABWORK PRISON LABWORK LABWORK PRISON LAB WORK LABWORK PRISON LABWORK PRISON LAB WORK Chief Complaint LABWORK PRISON LAB WORK LABWORK PRISON LABWORK PRISON LAB WORK PRISON LAB WORK LABWORK Chief Complaint PRISON LAB WOR K LABWORK PRISON LABWORK PRISON LAB WORK PRISON LAB WORK LABWORK LABWORK Chief Complaint PRISON LABWORK PRISON LAB WORK PRISON LAB WORK LABWORK LABWORK LABWORK Chief Complaint Admit Date PRISON LAB WORK September 27 5:00am PRISON LAB WORK November 15, 2024 5:00am PRISON LAB WORK November 27, 2024 5:00am PRISON LAB WORK December 28 5:00am PRISON LAB WORK January 02 5:00am PRISON LAB WORK January 03 6:10am Chief Complaint Admit Date PRISON LAB WORK November 15, 2024 5:00am PRISON LAB WORK November 27, 2024 5:00am PRISON LAB WORK December 28 5:00am PRISON LAB WORK January 02 5:00am PRISON LAB WORK January 03 6:10am PRISON LAB WORK January 25, 2025 5 :00am Chief Complaint Admit Date PRISON LAB WORK November 15, 2024 5:00am PRISON LAB WORK November 27, 2024 5:00am PRISON LAB WORK December 28 5:00am PRISON LAB WORK January 02 5:00am PRISON LAB WORK January 03 6:10am PRISON LAB WORK January 25, 2025 5 :00am PRISON LAB WORK January 30, 2025 5 :00am Chief Complaint Admit Date PRISON LAB WORK November 15, 2024 5:00am PRISON LAB WORK November 27, 2024 5:00am PRISON LAB WORK December 28 5:00am PRISON LAB WORK January 02 5:00am PRISON LAB WORK January 03 6:10am PRISON LAB WORK January 25, 2025 5 :00am PRISON LAB WORK January 30, 2025 5 :00am LABWORKFebruary 06, 2025 5:0 0am LABWORK February 11, 2025 5:0 0am Chief Complaint Admit Date PRISON LAB WORK November 27, 2024 5:00am PRISON LAB WORK December 28 5:00am PRISON LAB WORK January 02 5:00am PRISON LAB WORK January 03 6:10am PRISON LAB WORK January 25, 2025 5 :00am PRISON LAB WORK January 30, 2025 5 :00am LABWORKJ February 06, 2025 5:0 0am LABWORK February 11, 2025 5:0 0am LABWORK February 27, 2025 5:0 0am Chief Complaint Admit Date PRISON LAB WORK November 27, 2024 5:00am PRISON LAB WORK December 28 5:00am PRISON LAB WORK January 02 5:00am PRISON LAB WORK January 03 6:10am PRISON LAB WORK January 25, 2025 5 :00am PRISON LAB WORK January 30, 2025 5 :00am LABWORKJ February 06, 2025 5:0 0am LABWORK February 11, 2025 5:0 0am PRISON LAB WORK February 25, 2025 5 :00am LABWORK February 27, 2025 5:0 0am Chief Complaint Admit Date PRISON LAB WORK December 28 5:00am PRISON LAB WORK January 02 5:00am PRISON LAB WORK January 03 6:10am PRISON LAB WORK January 25, 2025 5 :00am PRISON LAB WORK January 30, 2025 5 :00am LABWORKJ February 06, 2025 5:0 0am LABWORK February 11, 2025 5:0 0am PRISON LAB WORK February 25, 2025 5 :00am LABWORK February 27, 2025 5:0 0am PRISON LAB WORK March 04, 2025 1 0:30pm Chief Complaint Admit Date PRISON LAB WORK January 25, 2025 5 :00am PRISON LAB WORK January 30, 2025 5 :00am LABWORKJ February 06, 2025 5:0 0am LABWORK February 11, 2025 5:0 0am PRISON LAB WORK February 25, 2025 5 :00am LABWORK February 27, 2025 5:0 0am PRISON LAB WORK March 04, 2025 1 0:30pm LABWORK March 27, 2025 5:00a m PRISON LAB WORK April 01, 2025 5:0 0am Medications Administered Section Inactive Administered Medications - [...] Specialty Diagnoses / Procedures Referred By Ulises duncan Referred To Contact Dermatology Diagnoses Rash and nonspecific skin eruption Procedures CONSULT TO DERMATOLOGY OFFICE/OUTPATIENT [facility] 60 MINUTES Dorota Smith MD [address] [id number] Referral ID Status Reason Start Date Expiration Date Visits Requested Visits Authorized [id number] Authorized PCP Requested Referral 09/14/2024 09/14/2025 1 1 Additional Source Comments INFORMATION SOURCE (unrecogn ized section and content) DATE CREATED AUTHOR 06/07/2018 [facility] DATE CREATED AUTHOR AUTHOR'S ORGANIZ ATION 04/02/2019 [facility] DATE CREATED AUTHOR AUTHOR'S ORGANIZ ATION 03/30/2020 [facility] DATE CREATED AUTHOR AUTHOR'S ORGANIZ ATION 08/05/2020 [facility] DATE CREATED AUTHOR AUTHOR'S ORGANIZ ATION 11/21/2020 [facility] DATE CREATED AUTHOR AUTHOR'S ORGANIZ ATION 09/18/2024 [facility] DATE CREATED AUTHOR AUTHOR'S ORGANIZ ATION 11/28/2024 [facility] DATE CREATED AUTHOR AUTHOR'S ORGANIZ ATION 02/27/2025 [facility] DATE CREATED AUTHOR AUTHOR'S ORGANIZ ATION 05/12/2025 [facility] y [facility] (unrecognized sect ion and content) No [...] 10 MG IV RITUXIMAB Anthony Olivares MD [address] [id number] 1, [facility] Main Infusion Chair [address] [place] [address] Referral ID Status Reason Start Date Expiration Date V isits Requested Visits Authorized [id number] Authorized 03/31/2022 11/13/2022 99 99 Reason Comments Shortness of Breath Reason Comments Follow Up Reason Comments Infusion iv rituximab Reason Comments Radio Main J1 Specialty Diagnoses / Procedures Referred By Contac t Referred To Contact XR IMAGING Diagnoses Chronic pain of right knee Procedures XR KNEE LIMITED 2V AP/LAT RIGHT RADIOLOGIC EXAMINATION KNEE 1/2 VIEWS Luz Daniel MD [address] [place] [address] Xr Imaging Referral ID Status Reason Start Date Expiration Date V isits Requested Visits Authorized [id number] Closed Auto-Generate d Referral 02/26/2022 03/28/2023 1 1 Reason Comments Rheumatoid Arthritis Reason Comments Follow Up RA- hands, stiff and swollen Reason Comments NO SHOW Reason Comments Patient Update Reason Comments Appointment Specialty Diagnoses / Procedures Referred By Contac t Referred To Contact Diagnoses 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) Procedures INJ RUXIENCE, 10 MG Anthony Olivares MD [address] [place] [address] [facility] [address] [place] [address] Referral ID Status Reason Start Date Expiration Date V isits Requested Visits Authorized [id number] Authorized 12/27/2023 12/29/2024 24 24 Reason Comments [...] or prosecute any alcohol or drug abuse patient.[facility] the event this information is protected by the Federal Confidentiality of Alcohol and Drug Abuse Patient Records regulations: The Federal rules restrict any use of the information to criminally investigate or prosecute any alcohol or drug abuse patient.[facility] the event this information is protected by the Federal Confidentiality of Alcohol and Drug Abuse Patient Records regulations: The Federal rules restrict any use of the information to criminally investigate or prosecute any alcohol or drug abuse patient.[facility] the event this information is protected by the Federal Confidentiality of Alcohol and Drug Abuse Patient Records regulations: The Federal rules restrict any use of the information to criminally investigate or prosecute any alcohol or drug abuse patient.[facility] the event this information is protected by the Federal Confidentiality of Alcohol and Drug Abuse Patient Records regulations: The Federal rules restrict any use of the information to criminally investigate or prosecute any alcohol or drug abuse patient.[facility] the event this information is protected by the Federal Confidentiality of Alcohol and Drug Abuse Patient Records regulations: The Federal rules restrict any use of the information to criminally investigate or prosecute any alcohol or drug abuse patient.[facility] the event this information is protected by the Federal Confidentiality of Alcohol and Drug Abuse Patient Records regulations: The Federal rules restrict any use of the information to criminally investigate or prosecute any alcohol or drug abuse patient.[facility] the event this information is protected by the Federal Confidentiality of Alcohol and Drug Abuse Patient Records regulations: The Federal rules restrict any use of the information to criminally investigate or prosecute any alcohol or drug abuse patient.[facility] the event this information is protected by the Federal Confidentiality of Alcohol and Drug Abuse Patient Records regulations: The Federal rules restrict any use of the information to criminally investigate or prosecute any alcohol or drug abuse patient.[facility] the event this information is protected by the Federal Confidentiality of Alcohol and Drug Abuse Patient Records regulations: The Federal rules restrict any use of the information to criminally investigate or prosecute any alcohol or drug abuse patient.[facility] the event this information is protected by the Federal Confidentiality of Alcohol and Drug Abuse Patient Records regulations: The Federal rules restrict any use of the information to criminally investigate or prosecute any alcohol or drug abuse patient.[facility] the event this information is protected by the Federal Confidentiality of Alcohol and Drug Abuse Patient Records regulations: The Federal rules restrict any use of the information to criminally investigate or prosecute any alcohol or drug abuse patient.[facility] the event this information is protected by the Federal Confidentiality of Alcohol and Drug Abuse Patient Records regulations: The Federal rules restrict any use of the information to criminally investigate or prosecute any alcohol or drug abuse patient.[facility] the event this information is protected by the Federal Confidentiality of Alcohol and Drug Abuse Patient Records regulations: The Federal rules restrict any use of the information to criminally investigate or prosecute any alcohol or drug abuse patient.[facility] the event this information is protected by the Federal Confidentiality of Alcohol and Drug Abuse Patient Records regulations: The Federal rules restrict any use of the information to criminally investigate or prosecute any alcohol or drug abuse patient.[facility] the event this information is protected by the Federal Confidentiality of Alcohol and Drug Abuse Patient Records regulations: The Federal rules restrict any use of the information to criminally investigate or prosecute any alcohol or drug abuse patient.[facility] the event this information is protected by the Federal Confidentiality of Alcohol and Drug Abuse Patient Records regulations: The Federal rules restrict any use of the information to criminally investigate or prosecute any alcohol or drug abuse patient.[facility] the event this information is protected by the Federal Confidentiality of Alcohol and Drug Abuse Patient Records regulations: The Federal rules restrict any use of the information to criminally investigate or prosecute any alcohol or drug abuse patient.[facility] the event this information is protected by the Federal Confidentiality of Alcohol and Drug Abuse Patient Records regulations: The Federal rules restrict any use of the information to criminally investigate or prosecute any alcohol or drug abuse patient.[facility] Hospital[facility] the event this information is protected by the Federal Confidentiality of Alcohol and Drug Abuse Patient Records regulations: The Federal rules restrict any use of the information to criminally investigate or prosecute any alcohol or drug abuse patient.[facility] Hospital[facility] the event this information is protected by the Federal Confidentiality of Alcohol and Drug Abuse Patient Records regulations: The Federal rules restrict any use of the information to criminally investigate or prosecute any alcohol or drug abuse patient.[facility] the event this information is protected by the Federal Confidentiality of Alcohol and Drug Abuse Patient Records regulations: The Federal rules restrict any use of the information to criminally investigate or prosecute any alcohol or drug abuse patient.[facility] the event this information is protected by the Federal Confidentiality of Alcohol and Drug Abuse Patient Records regulations: The Federal rules restrict any use of the information to criminally investigate or prosecute any alcohol or drug abuse patient.[facility] the event this information is protected by the Federal Confidentiality of Alcohol and Drug Abuse Patient Records regulations: The Federal rules restrict any use of the information to criminally investigate or prosecute any alcohol or drug abuse patient.[facility] Hospital[facility] the event this information is protected by the Federal Confidentiality of Alcohol and Drug Abuse Patient Records regulations: The Federal rules restrict any use of the information to criminally investigate or prosecute any alcohol or drug abuse patient.[facility] HospitalIn the event this information is protected by the Federal Confidentiality of Alcohol and Drug Abuse Patient Records regulations: The Federal rules restrict any use of the information to criminally investigate or prosecute any alcohol or drug abuse patient.[facility] Hospital[facility] the event this information is protected by the Federal Confidentiality of Alcohol and Drug Abuse Patient Records regulations: The Federal rules restrict any use of the information to criminally investigate or prosecute any alcohol or drug abuse patient.[facility] HospitalIn the event this information is protected by the Federal Confidentiality of Alcohol and Drug Abuse Patient Records regulations: The Federal rules restrict any use of the information to criminally investigate or prosecute any alcohol or drug abuse patient.[facility] Hospital[facility] the event this information is protected by the Federal Confidentiality of Alcohol and Drug Abuse Patient Records regulations: The Federal rules restrict any use of the information to criminally investigate or prosecute any alcohol or drug abuse patient.[facility] HospitalIn the event this information is protected by the Federal Confidentiality of Alcohol and Drug Abuse Patient Records regulations: The Federal rules restrict any use of the information to criminally investigate or prosecute any alcohol or drug abuse patient.[facility] HospitalIn the event this information is protected by the Federal Confidentiality of Alcohol and Drug Abuse Patient Records regulations: The Federal rules restrict any use of the information to criminally investigate or prosecute any alcohol or drug abuse patient.[facility] HospitalIn the event this information is protected by the Federal Confidentiality of Alcohol and Drug Abuse Patient Records regulations: The Federal rules restrict any use of the information to criminally investigate or prosecute any alcohol or drug abuse patient.[facility] HospitalIn the event this information is protected by the Federal Confidentiality of Alcohol and Drug Abuse Patient Records regulations: The Federal rules restrict any use of the information to criminally investigate or prosecute any alcohol or drug abuse patient.[facility] Care Teams (unrecognized sec tion and content) Machine Crater Relationship Specialty Start Date End Date Elgin Bal MD [address] [place] [address] PCP - General Family Practice 12/25/12 Anthony Olivares MD [address] [place] [address] Hook Loader Nephrology 03/19/21 Anthony Olivares MD [address] [place] [address] Primary Staff Physician Nephrology 12/10/21 Machine Crater Relationship Specialty Start Date End Date Elgin Bal MD [address] [place] [address] PCP - General Family Practice 12/25/12 Anthony Olivares MD [address] [place] [address] Hook Loader Nephrology 03/19/21 Anthony Olivares MD [address] [place] [address] Primary Staff Physician Nephrology 12/10/21 Machine Crater Relationship Specialty Start Date End Date Elgin Bal MD [address] [place] [address] PCP - General [facility] Practice 12/25/12 Anthony Olivares MD [address] [place] [address] Hook Loader Nephrology 03/19/21 Anthony Olivares MD [address] [place] [address] Primary Staff Physician Nephrology 12/10/21 Machine Crater Relationship Specialty Start Date End Date Elgin Bal MD [address] [place] [address] PCP - General Family Practice 12/25/12 Anthony Olivares MD [address] [place] [address] Hook Loader Nephrology 03/19/21 Anthony Olivares MD [address] [facility] [place] [address] Primary Staff Physician Nephrology 12/10/21 Machine Crater Relationship Specialty Start Date End Date Elgin Bal MD [address] [place] [address] PCP - General Family Practice 12/25/12 Anthony Olivares MD [address] [facility] [place] [address] Hook Loader Nephrology 03/19/21 Anthony Olivares MD [address] [place] [address] Primary Staff Physician Nephrology 12/10/21 Machine Crater Relationship Specialty Start Date End Date Elgin Bal MD [address] [place] [address] PCP - General Family Practice 12/25/12 Anthony Olivares MD [address] [place] [address] Hook Loader Nephrology 03/19/21 Anthony Olivares MD [address] [place] [address] Primary Staff Physician Nephrology 12/10/21 Machine Crater Relationship Specialty Start Date End Date Elgin Bal MD [address] [place] [address] PCP - General Family Medicine 12/25/12 Anthony Olivares MD [address] [place] [address] Hook Loader Nephrology 03/19/21 Anthony Olivares MD [address] [place] [address] Primary Staff Physician Nephrology 12/10/21 Machine Crater Relationship Specialty Start Date End Date Elgin Bal MD [address] [place] [address] PCP - General Family Medicine 12/25/12 Anthony Olivares MD [address] [facility] [place] [address] Hook Loader Nephrology 03/19/21 Anthony Olivares MD [address] [place] [address] Primary Staff Physician Nephrology 12/10/21 Machine Crater Relationship Specialty Start Date End Date Elgin Bal MD [address] [place] [address] PCP - General Family Medicine 12/25/12 Anthony Olivares MD [address] [place] [address] Hook Loader Nephrology 03/19/21 Anthony Olivares MD [address] [place] [address] Primary Staff Physician Nephrology 12/10/21 Machine Crater Relationship Specialty Start Date End Date Elgin Bal MD [address] [place] [address] PCP - General [facility] Medicine 12/25/12 Anthony Olivares MD [address] [place] [address] Hook Loader Nephrology 03/19/21 Anthony Olivares MD [address] [facility] [place] [address] Primary Staff Physician Nephrology 12/10/21 Team Status: [...] CHANDLER Attending Provider, Referring Prov ider Active Machine Crater Relationship Specialty Start Date End Date Elgin Bal MD [address] [place] [address] PCP - General Family Medicine 12/25/12 Anthony Olivares MD [address] [place] [address] Hook Loader Nephrology 03/19/21 Anthony Olivares MD [address] [place] [address] Primary Staff Physician Nephrology 12/10/21 Team Status: Inactive Member Role Status Dates Dr. Elgin Bal MD Primary Care Provider Active Dr. Alfredo Phipps MD Attending Provider Active Team Status: Active Member Role Status Dates Dr. Elgin Bal MD Primary Care Provider Active Adam CHANDLER Attending Provider, Referring Gila elmore Active Machine Crater Relationship Specialty Start Date End Date Elgin Bal MD [address] [place] [address] PCP - General Family Medicine 12/25/12 Anthony Olivares MD [address] [place] [address] Hook Loader Nephrology 03/19/21 Anthony Olivares MD [address] [place] [address] Primary Staff Physician Nephrology 12/10/21 Machine Crater Relationship Specialty Start Date End Date Elgin Bal MD [address] [place] [address] PCP - General Family Medicine 12/25/12 Anthony Olivares MD [address] [place] [address] Hook Loader Nephrology 03/19/21 Anthony Olivares MD [address] [place] [address] Primary Staff Physician Nephrology 12/10/21 Machine Crater Relationship Specialty Start Date End Date Alfredo Phipps MD [address] [address] PCP - General Internal Medicine 10/19/23 Anthony Olivares MD [address] [place] [address] Hook Loader Nephrology 03/19/21 Anthony Olivares MD [address] [place] [address] Primary Staff Physician Nephrology 12/10/21 Machine Crater Relationship Specialty Start Date End Date Alfredo Phipps MD [address] [place] [address] PCP - General Internal Medicine 10/19/23 Anthony Olivares MD [address] [facility] [place] [address] Hook Loader Nephrology 03/19/21 Anthony Olivares MD [address] [place] [address] Primary Staff Physician Nephrology 12/10/21 Machine Crater Relationship Specialty Start Date End Date Alfredo Phipps MD [address] [facility] [address] [place] [address] PCP - General Internal Medicine 10/19/23 Anthony Olivares MD [address] [place] [address] Hook Loader Nephrology 03/19/21 Anthony Olivares MD [address] [place] [address] Primary Staff Physician Nephrology 12/10/21 Machine Crater Relationship Specialty Start Date End Date Alfredo Phipps MD [address] [facility] [address] [place] [address] PCP - General Internal Medicine 10/19/23 Anthony Olivares MD [address] [place], [place] [id number] Hook Loader Nephrology 03/19/21 Anthony Olivares MD [address] [place] [address] Primary Staff Physician Nephrology 12/10/21 Machine Crater Relationship Specialty Start Date End Date Alfredo Phipps MD [address] [facility] [address] [place] [address] PCP - General Internal Medicine 10/19/23 Anthony Olivares MD [address] [place] [address] Hook Loader Nephrology 03/19/21 Anthony Olivares MD [address] [place] [address] Primary Staff Physician Nephrology 12/10/21 Machine Crater Relationship Specialty Start Date End Date Alfredo Phipps MD [address] [facility] [address] [place] [address] PCP - General Internal Medicine 10/19/23 Anthony Olivares MD [address] [place] [address] Hook Loader Nephrology 03/19/21 Anthony Olivares MD [address] [place] [address] Primary Staff Physician Nephrology 12/10/21 Machine Crater Relationship Specialty Start Date End Date Alfredo Phipps MD [address] [place] [address] PCP - General Internal Medicine 10/19/23 Anthony Olivares MD [address] [place] [address] Hook Loader Nephrology 03/19/21 Anthony Olivares MD [address] [place] [address] Primary Staff Physician Nephrology 12/10/21 Machine Crater Relationship Specialty Start Date End Date Alfredo Phipps MD [address] [facility] [address] [place] [address] PCP - General Internal Medicine 10/19/23 Anthony Olivares MD [address] [place] [address] Hook Loader Nephrology 03/19/21 Anthony Olivares MD [address] [place] [address] Primary Staff Physician Nephrology 12/10/21 Machine Crater Relationship Specialty Start Date End Date Alfredo Phipps MD [address] [facility] [address] [place] [address] PCP - General Internal Medicine 10/19/23 Anthony Olivares MD [address] [place] [address] Hook Loader Nephrology 03/19/21 Anthony Olivares MD [address] [place] [address] Primary Staff Physician Nephrology 12/10/21 Machine Crater Relationship Specialty Start Date End Date Alfredo Phipps MD [address] [place] [address] PCP - General Internal Medicine 10/19/23 Anthony Olivares MD [address] [place] [address] Hook Loader Nephrology 03/19/21 Anthony Olivares MD [address] [place] [address] Primary Staff Physician Nephrology 12/10/21 Machine Crater Relationship Specialty Start Date End Date Alfredo Phipps MD [address] [place] [address] PCP - General Internal Medicine 10/19/23 Anthony Olivares MD [address] [place] [address] Hook Loader Nephrology 03/19/21 Anthony Olivares MD [address] [place] [address] Primary Staff Physician Nephrology 12/10/21 Machine Crater Relationship Specialty Start Date End Date Alfredo Phipps MD [address] [place] [address] PCP - General Internal Medicine 10/19/23 Anthony Olivares MD [address] [place] [address] Hook Loader Nephrology 03/19/21 Anthony Olivares MD [address] [place] [address] Primary Staff Physician Nephrology 12/10/21 Machine Crater Relationship Specialty Start Date End Date Alfredo Phipps MD [address] [facility] [address] [place] [address] PCP - General Internal Medicine 10/19/23 Anthony Olivares MD [address] [place] [address] Hook Loader Nephrology 03/19/21 Anthony Olivares MD [address] [place] [address] Primary Staff Physician Nephrology 12/10/21 Machine Crater Relationship Specialty Start Date End Date Alfredo Phipps MD [address] [facility] [address] [place] [address] PCP - General Internal Medicine 10/19/23 Anthony Olivares MD [address] [place] [address] Hook Loader Nephrology 03/19/21 Anthony Olivares MD [address] [place], [place] [address] Primary Staff Physician Nephrology 12/10/21 Team Status: [...] January 30, 2025 End: January 30, 2025 Machine Crater Relationship Specialty Start Date End Date Alfredo Phipps MD [facility] [address] [place] [address] PCP - General Internal Medicine 10/19/23 Anthony Olivares MD [address] [place] [address] Hook Loader Nephrology 03/19/21 Anthony Olivares MD [address] [place] [address] Primary Staff Physician Nephrology 12/10/21 [...] Provider Active Sta rt: March 27, 2025 Team Status: Active Member Role/Relationship Status Dates Dr. Elgin Bal MD Family Provider Active Dr. Elgin Bal MD Primary Care Provider Active Team Status: Inactive Member Role/Relationship Status Dates Dr. Elgin Bal MD Primary Care Provider Active Start: January 25, 2025 End: January 25, 2025 Adam CHANDLER Attending Provider Active St art: January 25, 2025 End: January 25, 2025 Team Status: Inactive Member Role/Relationship Status Dates Dr. Elgin Bal MD Primary Care Provider Active Start: January 30, 2025 End: January 30, 2025 Adam CHANDLER Attending Provider Active St art: January 30, 2025 End: January 30, 2025 Team Status: Inactive Member Role/Relationship Status Dates Dr. Elgin Bal MD Primary Care Provider Active Start: February 06, 2025 End: February 06, 2025 Alfredo CHANDLER Attending Provider Active Sta rt: February 06, 2025 End: February 06, 2025 Team Status: Inactive Member Role/Relationship Status Dates Dr. Elgin Bal MD Primary Care Provider Active Start: February 11, 2025 End: February 11, 2025 Alfredo CHANDLER Attending Provider Active Sta rt: February 11, 2025 End: February 11, 2025 Team Status: Inactive Member Role/Relationship Status Dates Dr. Elgin Bal MD Primary Care Provider Active Start: February 25, 2025 End: February 25, 2025 Adam CHANDLER Attending Provider Active St art: February 25, 2025 End: February 25, 2025 Team Status: Inactive Member Role/Relationship Status Dates Dr. Elgin Bal MD Primary Care Provider Active Start: February 27, 2025 End: February 27, 2025 Alfredo CHANDLER Attending Provider Active Sta rt: February 27, 2025 End: February 27, 2025 Team Status: Inactive Member Role/Relationship Status Dates Dr. Elgin Bal MD Primary Care Provider Active Start: March 04, 2025 End: March 04, 2025 Adam CHANDLER Attending Provider Active St art: March 04, 2025 End: March 04, 2025 Team Status: Active Member Role/Relationship Status Dates Dr. Elgin Bal MD Primary Care Provider Active Start: March 27, 2025 Alfredo CHANDLER Attending Provider Active Sta rt: March 27, 2025 Team Status: Inactive Member Role/Relationship Status Dates Dr. Elgin Bal MD Primary Care Provider Active Start: April 01, 2025 End: April 01, 2025 Adam CHANDLER Attending Provider Active St art: April 01, 2025 End: April 01, 2025 Team Status: Active Member Role/Relationship Status Dates Dr. Elgin Bal MD Primary Care Provider Active Start: April 24, 2025 Adam CHANDLER Attending Provider Active St art: April 24, 2025 Team Status: Active Member Role/Relationship Status Dates Dr. Elgin Bal MD Primary Care Provider Active Start: April 26, 2025 Alfredo CHANDLER Attending Provider Active Sta rt: April 26, 2025 Team Status: Active Member Role/Relationship Status Dates Dr. Elgin Bal MD Primary Care Provider Active Start: May 02, 2025 Adam CHANDLER Attending Provider Active St art: May 02, 2025 Machine Crater Relationship Specialty Start Date End Date Alfredo Phipps MD [address] [place] [address] PCP - General Internal Medicine 10/19/23 Anthony Olivares MD [address] [place] [address] Hook Loader Nephrology 03/19/21 Anthony Olivares MD [address] [place] [address] Primary Staff Physician Nephrology 12/10/21 Inactive Administered Medications - up to 3 [...] BE BASED ON THE PRIMARY CLINICAL RECORDS. [facility]. provides no warranty or guarantee of the accuracy or completeness of information in this document.
[2025-05-24 08:08] LABS: Hematocrit 39.2 % (40-54); Hemoglobin 12.9 g/dL (13.0-16.5); Mean Corp Hgb Conc 32.9 g/dL (32-36); Mean Corpuscular Volume 91.6 fL (80-94); Mean Platelet Vol. 9.2 fl (6.2-12.0); Platelet Count 247 K/mm3 (150-450); RBC Distribution Width CV 12.7 % (11.6-14.6); RBC Distribution Width SD 42.1 fl (35.1-43.9); Red Blood Count 4.28 M/mm3 (4.6-6.2); White Blood Count 10.3 K/mm3 (4.4-11.0)
[2025-05-24 08:29] LABS: AST(SGOT) 12 U/L (<=37); Alanine Aminotransfer ALT/SGPT 10 U/L (<=46); Albumin, Serum 3.7 g/dL (3.4-4.8); Alkaline Phosphatase 80 U/L (40-129); Anion Gap 10 (5-15); BUN 25 mg/dL (4-19); BUN/Creat Ratio 11.9 RATIO (10-20); Calcium,Total 9.2 mg/dL (7.6-11.0); Carbon Dioxide 21.9 mmol/L (21.0-32.0); Chloride 107 mmol/L (98-108); Globulin 2.3 g/dL (2.2-4.2); Glucose 116 mg/dL (70-99); Potassium 4.4 mmol/L (3.3-5.1)
[2025-05-27 09:53] LABS: Uric Acid 6.3 mg/dL (3.5-7.2)
== END ==
LOC: OLS.SANC 05:00
PROVIDERS: PCP Family Medicine; Visit Provider Family Medicine
DX: E11.9 Type 2 diabetes mellitus without complications (principal); J44.9 Chronic obstructive pulmonary disease, unspecified; I10 Essential (primary) hypertension; E78.5 Hyperlipidemia, unspecified; Z79.899 Other long term (current) drug therapy
CPT/HCPCS: 36415; 80053; 84550; 85027

== ENCOUNTER → 2025-05-26 | Outpatient (REF) | payer MEDICARE, MEDICAID, SELFPAY ==
[2025-05-27 09:43] LABS: Color, Urine Straw (Yellow); Glucose, Dipstick Normal (Normal); Ketone-Dipstick Negative (Negative); Leukocyte Esterase-Dipstick 500 /ul (Negative); Nitrite-Dipstick Negative (Negative); Occult Blood-Urine Negative /ul (Negative); Protein-Dipstick Negative (Negative); Specific Gravity, Urine 1.005 (1.002-1.030); Urine Bilirubin Dipstick Negative (Negative)
[2025-05-27 10:18] LABS: Creatinine, Urine (random) 25.50 mg/dL (39.00-259.00); Protein, Urine (Random) < 6.0 mg/dL (0.0-12.0); Protein:Creat Ratio 172 mg/g CRE (0-200)
== END ==
LOC: OLS.SANC 20:00
PROVIDERS: PCP Family Medicine; Visit Provider Family Medicine
DX: I10 Essential (primary) hypertension (principal); J44.9 Chronic obstructive pulmonary disease, unspecified; E11.9 Type 2 diabetes mellitus without complications; E78.5 Hyperlipidemia, unspecified; Z79.899 Other long term (current) drug therapy
CPT/HCPCS: 81002; 82570; 84156; 87086; 87088

== ENCOUNTER → 2025-05-28 | Outpatient (REF) | payer MEDICARE, MEDICAID, SELFPAY ==
--- OUTSIDE RECORDS SUMMARY | 2025-05-28 03:38 | XMS RPT_ITS | CCD ---
Author Organization [facility] Care Team Providers Care Terrazzo Grinder Name Role Phone HODA BERNABE MD Admitting [...] Owusu Referring Unavailable DOROTA SMITH Attending Unavailable Dr. Elgin Bla MD Primary Care Provider Adam Marley Attending Provider UnavailDr. Elgin Russell MD Primary Care Provider Adam Marley Attending Provider Unavaila ble Katsashawna CHANDLER, Alfredo Attending Provider Unavailab ANTHONY Ragland Referring Unavailable KATSAROS, ALFREDO SPICER Primary Care Unavaila catracho OLIVARES, ANTHONY Rivera Referring Unavailable KATSAROS, ALFREDO SPICER Primary Care Unavaila catracho OLIVARES, ANTHONY Rivera Referring Unavailable KATSAROS, ALFREDO SPICER Primary Care Unavaila catracho Bal MD, Dr. Eisenberg Primary Care Provider Adam Marley Attending Provider Unavailyuko Bal MD, Dr. Eisenberg Primary Care Provider Jasmine CHANDLER, Adam Attending Provider Unavailyuko Bal MD, Dr. Eisenberg Primary Care Provider Adam Marley Attending Provider Unavaila ble Jasmine CHANDLER, Adam Attending Unavailable Mally, [facility] Primary Care Unavailable Katsaros OLS, Alfredo Attending Unavailable Mally, [facility] Primary Care Unavailable Gunning OLS, Adam Attending Unavailable [place], [facility] Primary Care Unavailable Mally, [facility] Primary Care Unavailable Katsaros RAMESH, Alfredo Attending Unavailable Katsaros RAMESH, Alfredo Attending Unavailable Mally, [facility] Primary Care Unavailable Mally, [facility] Primary Care Unavailable Gunning OLS, Adam Attending Unavailable [place], [facility] Primary Care Unavailable Gunning OLS, Adam Attending Unavailable Mally, [facility] Primary Care Unavailable Gunning OLS, Adam Attending Unavailable Gunning OLS, Adam Attending Unavailable [place], [facility] Primary Care Unavailable Gunning OLS, Adam Attending Unavailable [place], [facility] Primary Care Unavailable Gunning OLS, Adam Attending Unavailable Mally, [facility] Primary Care Unavailable Gunning OLS, Adam Attending Unavailable [place], [facility] Primary Care Unavailable Gunning OLS, Adam Attending Unavailable [place], [facility] Primary Care Unavailable Gunning OLS, Adam Referring Unavailable Gunning OLS, Adam Attending Unavailable [place], [facility] Primary Care Unavailable [place], [facility] Primary Care Unavailable Gunning OLS, Adam Attending Unavailable [place], [facility] Primary Care Unavailable Gunning OLS, Adam Attending Unavailable Gunning OLS, Adam Attending Unavailable Mally, [facility] Primary Care Unavailable Gunning OLS, Adam Attending Unavailable [place], [facility] Primary Care Unavailable Gunning OLS, Adam Attending Unavailable Mally, [facility] Primary Care Unavailable Mally, [facility] Primary Care Unavailable Katsaros OLS, Alfredo Attending Unavailable Gunning OLS, Adam Attending Unavailable [place], [place] Primary Care Unavailable Gunning OLS, Adam Attending Unavailable [place], [place] Primary Care Unavailable Katsaros OLS, Alfredo Attending Unavailable Mally, [facility] Primary Care Unavailable Mally, [facility] Care Unavailable Alfredo Bhakta Attending Unavailable Jasmine CHANDLER, Adam Attending Unavailable [place], [facility] Primary Care Unavailable Jasmine CHANDLER, Adam Attending Unavailable [place], [facility] Primary Care Unavailable Alfredo Bhakta Attending Unavailable [place], [facility] Care Unavailable Jasmine CHANDLER, Adam Attending Unavailable [place], [facility] Care Unavailable Jasmine CHANDLER, Adam Attending Unavailable [place], [facility] Care Unavailable ANTHONY OLIVARES Attending Unavailable ANTHONY OLIVARES Referring Unavailable ALFREDO PHIPPS Primary Care Unavaila ble ANTHONY OLIVARES Attending Unavailable SELF Referring Unavailable KATSAROS, [facility] Unavaila ble Allergies Allergy Classification Reported Allergen(s) Allergy Type Date of Onset Reaction(s) Facility Anti-Epileptic Agents (1 source) lamoTRIgine Drug Allergy 8 [facility] Work Phone: Bee pollen (1 source) Bee pollen Drug Allergy 0 Other: See Comments [facility] Corticosteroids (1 source) fluticasone Drug Allergy 3 Other: See Comments [facility] Work Phone: OLANZapine (1 source) OLANZapine Drug Allergy 7 [facility] (20 sources) Bee pollen; Translations: [BEE POLLEN] Drug Allergy 0 Other: See Comments [place], [place] (20 sources) fluticasone Drug Allergy 0 [place], [place] (20 sources) lamoTRIgine; Translations: [LAMOTRIGINE] Drug Allergy 8 [place], [place] (20 sources) OLANZapine; Translations: [OLANZAPINE] Drug Allergy 7 [place] (20 sources) fluticasone; Translations: [FLUTICASONE PROPIONATE] Drug Allergy 3 Other: See [facility] Work Phone: (1 source) fluticasone Drug Allergy 0 [facility] Rep[facility] (1 source) lamoTRIgine Drug Allergy 9 [facility] (1 source) OLANZapine Drug Allergy 0 [facility] Medications Current Medications Medication Drug Class(es) Dates Sig (Normalized) Sig (Original) acetaminophen 300 mg / codeine phosphate 60 mg oral tablet (20 sources) Opioid Agonist take 1 tablet by mouth every eight hours as needed acetaminophen-cod eine (TYLENOL-COD #4) 300-60 mg per tablet Take 1 tablet by mouth every 8 hours as needed. 500mg Active Comment on above: Take 1 tablet by donovan th every 8 hours as needed. 500mg [id number] actuat albuterol 0.09 mg/actuat metered dose [...] sources) Dihydropyridine Calcium Channel Shaq Start: 02-14-20 take 1 tablet by mouth once daily Amlodipine 10 MG tablet Active 10 mg PO DAILY February 14, 2020 12:00am atorvastatin 10 mg oral tablet (20 sources) HMG-CoA Reductase Inhibitor Start: 02-14-20 take 2 tablets by mouth at bedtime [...] 02-14-2020 take 1 capsule by mo [facility] once daily Cholecalciferol (Vitamin D3) 2,000 UNIT [...] 20 mg/ml oral suspension (1 source) Uncompetitive V-rtpvsc-Q-aspartate Receptor Antagonist, Sigma-1 Agonist Start: 10-28-2020 take 5 mL by mouth every four hours as needed for cough 5 mL, Oral, EVERY 4 HOURS PRN, Cough, Starting Tue10/28/20 at 1936 docosahexaenoic acid 120 mg / eicosapentaenoic acid 180 mg oral capsule (1 source) take 1 capsule by mouth once daily [place]-3 1000 MG CAPS Take 1 capsule by mouth daily 0 Active famotidine 20 mg oral tablet (20 sources) Histamine-2 Receptor Antagonist Start: 10-28-2020 take 40 mg by mouth once daily 40 mg, Oral, DAILY, First dose on Tue10/28/20 at 1999 Start: 02-14-2020 take 1 tablet by [place] once daily Famotidine 40 MG tablet Active [...] 14, 2020 12:00am take 3 tablets by [facility] once daily furosemide (LASIX) 20 MG [...] Active Start: 03-06-2021 take 1 capsule by [facility] once daily lithium carbonate (ESKALITH) 300 mg capsule Take 300 mg by mouth once daily. 03/06/2021 Active Start: 10-28-2020 take 300 mg by mouth once tommy y 300 mg, Oral, NIGHTLY, First dose on Tue10/28/20 at 2100 Maintain adequate fluid and sodium intake Start: 04-02-2018 take 1 tablet by [facility] once daily at bedtime [place] Carbonate 300 MG tablet extended release Active 300 mg PO TWICE A DAY April 02, 2018 12:00am [facility] [place] Comment on above: Take 150 mg by [...] daily. magnesium hydroxide 240 mg/ml oral suspension (7 sources) take 10 mL by mouth once [...] AT BEDTIME February 14, 2020 12:00am take 1 tablet by donovan th once daily melatonin 10 mg tab Take 10 mg by mouth once daily. Active End: 05-23-2025 take 10 mg by mouth once daily at bedtime melatonin 3 mg capsules Take 10 mg by mouth daily at bedtime. 05/23/2025 Discontinued Comment on above: Take 10 mg by mouth daily at bedtime. Take 10 mg by mouth once daily. metFORMIN hydrochloride 1000 mg oral tablet (20 sources) Biguanide Start: 4 take 1 tablet [...] th once daily. omega-3 acid ethyl esters (residential) 1000 mg oral capsule (1 source) Start: 10-28-2020 take 1 capsule by mouth once daily 1 capsule, Oral, DAILY, First dose on Tue10/28/20 at 2000 [place]-3 Fatty Acids-Fish Oil (20 sources) Start: 02-14-2020 [place]-3 Fatty Acids-Fish Oil Active 1 EACH PO DAILY February 14, 2020 10:03am Start: 02-14-2020 [place]-3 Fatty Acids-Fish Oil Active 1 EACH PO DAILY February 13, 2020 11:00pm Start: 02-14-2020 [place]-3 Fatty Acids-Fish Oil Active 1 EACH PO DAILY February 14, 2020 12:00am [place]-3 Fatty Acids-Fish Oil 1 EACH capsule (11 sources) Start: 02-14-2020 [place]-3 Fatty Acids-Fish Oil 1 EACH capsule Active 1 NMA PO DAILY February 14, 2020 12:00am Start: 02-14-2020 [place]-3 Fatty Acids-Fish Oil 1 EACH capsule Active 1 NMA PO DAILY February 13, 2020 11:00pm Qcggj-0-NNS-EPA-Fish Oil 1,0 00 mg (120 mg-180 mg) cap (20 sources) take 1 capsule by mouth once daily Spfvb-9-TFX-EPA-Fish Oil 1,000 mg (120 mg-180 mg) cap Take 1 capsule by mouth once daily. Active take 1 capsule by mouth once berna ly Vlzwg-6-GJG-EPA-Fish Oil 1,000 mg (120 mg- 180 mg) cap Take 1 capsule by mouth once daily. 0 Active Comment on above: Take 1 capsule by mo [facility] once daily. omeprazole 40 mg delayed release [...] tablet (20 sources) Atypical Antipsychotic Start: 02-14-20 20 take 1 tablet by [...] Substituted for Omeprazole (PRILOSEC). polyethylene glycol 3350 13468 mg powder for oral solution (1 source) [...] Start: 02-14-2020 take 2 tablets by mo [facility] once daily Quetiapine 300 MG tablet Active [...] 2020 12:00am take 1 tablet by donovan three times weekly sulfamethoxazole-trimethoprim (BACTRIM DS,SEPTRA DS) [...] on above: Take 2 tablets by mo [facility] as directed. prior to Rituximab infusion. cefTRIAXone [...] Comment on above: Take 1 capsule by [facility] as directed. prior to Rituximab infusion. [...] ously as directed. prior to Rituximab infusion. Jysmc-3-IFZ-EPA-Fish Oil (FISH OIL) 1,000 mg (120 mg-180 mg) cap (6 sources) take 1 capsule by mouth once daily Msutm-2-RTY-EPA-Fish Oil (FISH OIL) 1,000 mg (120 mg-180 [...] premature beats; Translations: [Ventricular premature depolarization] Onset: 9 03-25-2020 Chronic Chronic kidney disease (20 sources) Chronic kidney disease stage 3; Translations: [Chronic kidney disease] Onset: 8 08-23-2019 Chronic Chronic kidney disease (2 sources) Chronic kidney disease; Translations: [Chronic kidney disease, stage 3 unspecified] Onset: 4 Congestive heart failure; nonhypertensive (20 sources) Chronic systolic heart failure; Translations: [Chronic systolic (congestive) heart failure] Onset: 1 03-19-2021 Chronic Deficiency and other anemia (2 sources) Anemia, unspecified; Translations: [Anemia, unspecified] Onset: 5 Episodic Diabetes mellitus with complications (13 sources) 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; Translations: [Type 2 diabetes mellitus with diabetic chronic kidney disease] Onset: 7 Resolved: 7 07-15-2017 Chronic Diabetes mellitus without complication (2 sources) Type 2 diabetes mellitus without complications; Translations: [Type 2 diabetes mellitus without complications] Onset: 4 Chronic Diseases of white blood cells (20 sources) Leukocytosis; Translations: [Elevated white blood cell count, unspecified] Onset: 6 08-15-2019 Chronic Disorders of lipid metabolism (20 sources) Mixed hyperlipidemia; Translations: [Mixed hyperlipidemia] Onset: 0 03-25-2020 Chronic Esophageal disorders (20 sources) Gastroesophageal reflux disease; Translations: [Gastro-esophageal reflux disease without esophagitis] Onset: 0 Resolved: 8 01-10-2011 Chronic Essential hypertension (20 sources) Essential hypertension; Translations: [Essential (primary) hypertension] Onset: 9 03-25-2020 Chronic Fluid and electrolyte disorders (1 source) Hypokalemia; Translations: [Hypokalemia] Episodic Gastritis and duodenitis (13 sources) Chronic gastritis; Translations: [Unspecified chronic gastritis without bleeding] Onset: 0 Resolved: 8 07-10-2018 Chronic Genitourinary symptoms and ill-defined conditions (1 source) Other difficulties with micturition; Translations: [Other difficulties with micturition] Onset: 0 Gout and other crystal arthropathies (2 sources) Idiopathic chronic gout, unspecified site, without tophus (tophi); Translations: [Idiopathic chronic gout, unspecified site, without tophus (tophi)] Onset: 5 Chronic Hypertension with complications and secondary hypertension (5 sources) Benign hypertension; Translations: [Hypertensive chronic kidney disease with stage 1 through stage 4 chronic kidney disease, or unspecified chronic kidney disease] Onset: 4 Chronic Mood disorders (20 sources) Bipolar I disorder; Translations: [Bipolar disorder, unspecified] Onset: 9 08-23-2019 Chronic Nonspecific chest pain (20 sources) Chest pain; Translations: [Chest pain, unspecified] 03-02-2019 Episodic Other aftercare (3 sources) Other alf (current) drug therapy; Translations: [Other superintendent container terminal (current) drug therapy] Onset: 0 Episodic Other and ill-defined heart disease (20 sources) Mild left ventricular systolic dysfunction; Translations: [Other ill-defined heart diseases] Onset: 9 03-25-2020 Chronic Other circulatory disease (20 sources) Vasculitis; Translations: [Arteritis, unspecified] Onset: 6 11-10-2021 Chronic Other congenital anomalies (20 sources) Porokeratosis; Translations: [Other specified congenital malformations of skin] Onset: 0 01-10-2011 Chronic Other lower respiratory disease (1 source) Hypoxia; Translations: [Hypoxia] Episodic Other non-traumatic joint disorders (1 source) Pain in right knee; Translations: [Pain in joint, lower leg] Episodic Other nutritional; endocrine; and metabolic disorders (20 sources) Cholesterol level - finding; Translations: [Lipoprotein deficiency] Onset: 1 06-28-2011 Chronic Other nutritional; endocrine; and metabolic disorders (20 sources) Body mass index 40+ - severely obese; Translations: [Morbid (severe) obesity due to excess calories] Onset: 5 08-23-2019 Chronic Other nutritional; endocrine; and metabolic disorders (1 source) Myoadenylate deaminase deficiency; 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] Onset: 4 Chronic Other screening for suspected conditions (not mental disorders or infectious disease) (20 sources) Electrocardiogram abnormal; Translations: [Abnormal electrocardiogram [ECG] [EKG]] Onset: 9 08-23-2019 Episodic Other skin disorders (1 source) Eruption; Translations: [Rash and other nonspecific skin eruption] 09-14-2024 Episodic Other skin disorders (1 source) Rash and other nonspecific skin eruption; Translations: [Rash and nonspecific skin eruption] Onset: 4 Episodic Other upper respiratory infections (2 sources) Chronic ethmoidal sinusitis; Translations: [Other chronic sinusitis] Onset: 9 Chronic Rina-; endo-; and myocarditis; cardiomyopathy (except that caused by tuberculosis or sexually transmitted disease) (20 sources) Cardiomyopathy; Translations: [Other cardiomyopathies] Onset: 0 08-01-2020 Chronic Residual codes; unclassified (20 sources) Obstructive sleep apnea syndrome; Translations: [Obstructive sleep apnea (adult) (pediatric)] Onset: 9 08-23-2019 Chronic Rheumatoid arthritis and related disease (20 sources) Rheumatoid arthritis; Translations: [Rheumatoid arthritis, unspecified] Onset: 3 Resolved: 8 12-24-2020 Chronic Schizophrenia and other psychotic disorders (20 sources) Chronic paranoid schizophrenia; Translations: [Paranoid schizophrenia] Onset: 4 03-03-2019 Chronic Spondylosis; intervertebral disc disorders; other back problems (20 sources) Lumbar discogenic pain; Translations: [Other intervertebral disc displacement, lumbar region] Onset: 7 03-30-2017 Chronic Substance-related disorders (20 sources) Tobacco dependence in remission; Translations: [Nicotine dependence, unspecified, in remission] Onset: 5 07-14-2015 Chronic Systemic lupus erythematosus and connective tissue disorders (20 sources) Granulomatosis with polyangiitis; Translations: [Rey's granulomatosis without renal involvement] Onset: 6 Resolved: 4 Chronic Past or Other Problems Problem Classification Problem Date Documented Da te Episodic/Chronic Abdominal hernia (20 sources) Hernia of anterior abdominal wall; Translations: [Ventral hernia without obstruction or gangrene] Onset: 11-20-2015 11-20-2015 Episodic Diabetes mellitus without complication (20 sources) Hyperglycemia; Translations: [Hyperglycemia, unspecified] Onset: 07-10-2018 08-23-2019 Episodic Epilepsy; convulsions (13 sources) Seizure; Translations: [Unspecified convulsions] Onset: 08-10-2019 Resolved: 08-23-2019 08-23-2019 Episodic Gastritis and duodenitis (13 sources) Acute gastritis; Translations: [Acute gastritis without bleeding] Onset: 05-28-2008 Resolved: 02-11-2010 02-11-2010 Episodic Nutritional deficiencies (13 sources) Undernutrition; Translations: [Mild protein-calorie malnutrition] Onset: 08-14-2016 Resolved: 07-10-2018 07-10-2018 Chronic Other aftercare (20 sources) Immunosuppression; Translations: [Immunosuppression due to drug therapy] Onset: 01-08-2019 01-08-2019 Episodic Other and unspecified benign neoplasm (20 sources) History of polyp of colon; Translations: [Personal history of colonic polyps] Onset: 04-27-2018 04-27-2018 Episodic Other connective tissue disease (20 sources) History of lumbar fusion; Translations: [Arthrodesis status] Onset: 07-14-2015 03-28-2017 Episodic Other connective tissue disease (20 sources) Recurrent falls ; Translations: [Repeated falls] Onset: 08-23-2019 08-23-2019 Episodic Other connective tissue disease (13 sources) Rupture of tendon of foot and ankle; Translations: [Spontaneous rupture of other tendons, unspecified ankle and foot] Onset: 10-08-2009 Resolved: 07-30-2016 07-30-2016 Episodic Other connective tissue disease (13 sources) Disorder of Achilles tendon; Translations: [Achilles tendinitis, unspecified leg] Onset: 03-20-2010 Resolved: 07-30-2016 07-30-2016 Episodic Other connective tissue disease (13 sources) Enthesopathy; Translations: [Enthesopathy, unspecified] Onset: 11-25-2010 Resolved: 07-10-2018 07-10-2018 Episodic Other connective tissue disease (13 sources) Pain of toe of left foot; Translations: [Pain in left toe(s)] Onset: 02-17-2016 Resolved: 07-10-2018 07-10-2018 Episodic Other gastrointestinal disorders (13 sources) Constipation; Translations: [Constipation, unspecified] Onset: 02-20-2013 Resolved: 07-10-2018 07-10-2018 Episodic Other gastrointestinal disorders (13 sources) Diarrhea; Translations: [Diarrhea, unspecified] Onset: 02-20-2013 Resolved: 07-10-2018 07-10-2018 Episodic Other injuries and conditions due to external causes (13 sources) Contusion; Translations: [Other injury of unspecified body region, initial encounter] Onset: 03-30-2010 Resolved: 07-30-2016 07-30-2016 Episodic Other nervous system disorders (13 sources) Disorder of brain; Translations: [Encephalopathy, unspecified] Onset: 08-16-2019 Resolved: 08-23-2019 08-23-2019 Chronic Other nervous system disorders (2 sources) Unsteadiness on feet; Translations: [Unsteadiness on feet] Onset: 08-06-2019 Episodic Other nervous system disorders (20 sources) Impairment of balance; Translations: [Other abnormalities of gait and mobility] Onset: 10-10-2018 10-10-2018 Episodic Other nervous system disorders (20 sources) Paresthesia; Translations: [Paresthesia of skin] Onset: 12-24-2020 12-24-2020 Episodic Other nutritional; endocrine; and metabolic disorders (13 sources) Constitutional obesity; Translations: [Other obesity] Onset: 07-14-2015 Resolved: 07-10-2018 07-10-2018 Chronic Pneumonia (except that caused by tuberculosis or sexually transmitted disease) (15 sources) Pneumonia due to other virus not elsewhere classified; Translations: [Pneumonia, unspecified organism] Onset: 01-29-2008 Resolved: 02-11-2010 10-28-2020 Episodic Rehabilitation care; fitting of prostheses; and adjustment of devices (13 sources) Patient encounter status; Translations: [Other physical therapy] Onset: 11-25-2010 Resolved: 07-10-2018 07-10-2018 Episodic Residual codes; unclassified (20 sources) Confusional state; Translations: [Disorientation, unspecified] Onset: 01-08-2019 01-08-2019 Episodic Residual codes; unclassified (13 sources) Tobacco user; Translations: [Tobacco use] Onset: 10-21-2009 Resolved: 07-10-2018 07-10-2018 Episodic Results Test Name Value Interpretation Reference Range Facility [facility] Erythrocyte distribution width (RBC) [Ratio] 12.7 % Normal 11.6-14.6 [facility] Comment on above: Order Comment: 111.2 Performed By: #### L 100.0100, L501.9060, L502.0250, L500.2500 #### [facility] [address] [place], [address] Hematocrit (Bld) [Volume fraction] 39.2 % Low 40-54 [facility] Comment on above: Order Comment: 111.2 Performed By: #### L 100.0100, L501.9060, L502.0250, L500.2500 #### [facility] [address] [place], [address] Hemoglobin (Bld) [Mass/Vol] 12.9 g/dL Low 13.0-16.5 [facility] Comment on above: Order Comment: 111.2 Performed By: #### L 100.0100, L501.9060, L502.0250, L500.2500 #### [facility] [address] [place], [address] MCH (RBC) [Entitic mass] 30.1 pg Normal 27.0-32.0 [facility] Comment on above: Order Comment: 111.2 Performed By: #### L 100.0100, L501.9060, L502.0250, L500.2500 #### [facility] [address] [place], [address] MCHC (RBC) [Mass/Vol] 32.9 g/dL Normal 32-[address] [facility] Comment on above: Order Comment: 111.2 Performed By: #### L 100.0100, L501.9060, L502.0250, L500.2500 #### [facility] [address] [place], [address] MCV (RBC) [Entitic vol] 91.6 fL Normal 80-94 [facility] Comment on above: Order Comment: 111.2 Performed By: #### L 100.0100, L501.9060, L502.0250, L500.2500 #### [facility] [address] [place], [address] Platelet mean volume (Bld) [Entitic vol] 9.2 fL Normal 6.2-12.0 [facility] Comment on above: Order Comment: 111.2 Performed By: #### L 100.0100, L501.9060, L502.0250, L500.2500 #### [facility] [address] [place], [address] Platelets (Bld) [#/Vol] 247 10*3/uL Normal 150-450 [facility] Comment on above: Order Comment: 111.2 Performed By: #### L 100.0100, L501.9060, L502.0250, L500.2500 #### [facility] [address] [place], [address] RBC (Bld) [#/Vol] 4.28 10*6/uL Low 4.6-6.2 [facility] Comment on above: Order Comment: 111.2 Performed By: #### L 100.0100, L501.9060, L502.0250, L500.2500 #### [facility] [address] [place], [address] RDW SD 42.1 fl Normal 35.1-43.9 [facility] Comment on above: Order Comment: 111.2 Performed By: #### L 100.0100, L501.9060, L502.0250, L500.2500 #### [facility] [address] [place], [address] WBC (Bld) [#/Vol] 10.3 10*3/uL Normal 4.4-11.0 [facility] Comment on above: Order Comment: 111.2 Performed By: #### L 100.0100, L501.9060, L502.0250, L500.2500 #### [facility] [address] [place], [address] Comprehensive Met[facility] 05-24-2025 Albumin [Mass/Vol] 3.7 g/dL Normal 3.4-4.8 [facility] Comment on above: Order Comment: 111.2 Performed By: #### L 100.0100, L501.9060, L502.0250, L500.2500 #### [facility] [address] [place], [address] Albumin/Globulin [Mass ratio] 1.6 {ratio} Normal 0.9-2.4 [facility] Comment on above: Order Comment: 111.2 Performed By: #### L 100.0100, L501.9060, L502.0250, L500.2500 #### [facility] [address] [place], [address] ALK PHOS 80 U/L Normal 40-129 [facility] Comment on above: Order Comment: 111.2 Performed By: #### L 100.0100, L501.9060, L502.0250, L500.2500 #### [facility] [address] [place], [address] ALT [Catalytic activity/Vol] 10 U/L Normal <=46 [facility] Comment on above: Order Comment: 111.2 Performed By: #### L 100.0100, L501.9060, L502.0250, L500.2500 #### [facility] [address] [place], [address] AST [Catalytic activity/Vol] 12 U/L Normal <=37 [facility] Comment on above: Order Comment: 111.2 Performed By: #### L 100.0100, L501.9060, L502.0250, L500.2500 #### [facility] [address] [place], [address] Bilirubin [Mass/Vol] 0.15 mg/dL Normal 0.00-1.30 [facility] Comment on above: Order Comment: 111.2 Performed By: #### L 100.0100, L501.9060, L502.0250, L500.2500 #### [facility] [address] [place], [address] BUN/CRE 11.9 RATIO Normal 10-20 [facility] Comment on above: Order Comment: 111.2 Performed By: #### L 100.0100, L501.9060, L502.0250, L500.2500 #### [facility] [address] [place], [address] Calcium [Mass/Vol] 9.2 mg/dL Normal 7.6-11.0 [facility] Comment on above: Order Comment: 111.2 Performed By: #### L 100.0100, L501.9060, L502.0250, L500.2500 #### [facility] [address] [place], [address] Chloride [Moles/Vol] 107 mmol/L Normal 98-108 [facility] Comment on above: Order Comment: 111.2 Performed By: #### L 100.0100, L501.9060, L502.0250, L500.2500 #### [facility] [address] [place], [address] CO2 [Moles/Vol] 21.9 mmol/L Normal 21.0-32.0 [facility] Comment on above: Order Comment: 111.2 Performed By: #### L 100.0100, L501.9060, L502.0250, L500.2500 #### [facility] [address] [place], [address] Creatinine [Mass/Vol] 2.10 mg/dL High 0.70-1.[address] [facility] Comment on above: Order Comment: 111.2 Performed By: #### L 100.0100, L501.9060, L502.0250, L500.2500 #### [facility] [address] [place], [address] GAP 10 Normal 5-15 [facility] Comment on above: Order Comment: 111.2 Performed By: #### L 100.0100, L501.9060, L502.0250, L500.2500 #### [facility] [address] [place], [address] GFR/1.73 sq M.predicted among non-blacks MDRD (S/P/Bld) [Vol rate/Area] 35 mL/min/{1.73_m2} Low >60 [facility] Comment on above: Order Comment: 111.2 Result Comment: mL/m in/1.73m2 CKD-EPI Creatinine Equation (2020) Performed By: #### L 100.0100, L501.9060, L502.0250, L500.2500 #### [facility] [address] [place], [address] Globulin (S) [Mass/Vol] 2.3 g/dL Normal 2.2-4.2 [facility] Comment on above: Order Comment: 111.2 Performed By: #### L 100.0100, L501.9060, L502.0250, L500.2500 #### [facility] [address] [place], [address] Glucose [Mass/Vol] 116 mg/dL High 70-99 [facility] Comment on above: Order Comment: 111.2 Performed By: #### L 100.0100, L501.9060, L502.0250, L500.2500 #### [facility] [address] [place], [address] Potassium [Moles/Vol] 4.4 mmol/L Normal 3.3-5.[address] [facility] Comment on above: Order Comment: 111.2 Performed By: #### L 100.0100, L501.9060, L502.0250, L500.2500 #### [facility] [address] [place], [address] Sodium [Moles/Vol] 139 mmol/L Normal 133-145 [facility] Comment on above: Order Comment: 111.2 Performed By: #### L 100.0100, L501.9060, L502.0250, L500.2500 #### [facility] [address] [place], [address] T PROT 6.0 g/dL Normal 5.9-8.4 [facility] Comment on above: Order Comment: 111.2 Performed By: #### L 100.0100, L501.9060, L502.0250, L500.2500 #### [facility] [address] [place], [address] Urea nitrogen [Mass/Vol] 25 mg/dL High 4-19 [facility] Comment on above: Order Comment: 111.2 Performed By: #### L 100.0100, L501.9060, L502.0250, L500.2500 #### [facility] [address] [place], [address] Lithiumon 05-02-2025 LI 0.53 mmol/L Low 0.60-1.20 [facility] Comment on above: Order Comment: 111.2 Performed By: #### L 100.0100, L501.9060, L502.0250, L500.2500 #### [facility] [address] [place], [address] Serum or plasma uric acid me asurement (mass/volume)Ordered By: Alfredo Phipps on 04-26-2025 Urate [Mass/Vol] 6.3 mg/dL 3.5-7.2 [facility] Comment on above: The drugs N-Acetylcy steine and Metamizole may falsely depress this assay. Uric Acidon 04-26-2025 URIC 6.3 mg/dL Normal 3.5-7.2 [facility] Comment on above: Order Comment: 111-2 Result Comment: The drugs N-Acetylcysteine and Metamizole may falsely depress this assay. Performed By: #### L 100.0100, L501.9060, L502.0250, L500.2500 #### [facility] [address] [place], [address] Absolute lymphocyte countOrd ered By: Adam Ferraro on 04-24-2025 Lymphocytes Auto (Unsp spec) [#/Vol] 2.17 10*3/uL 0.83-4.51 [facility] Absolute neutrophil countOrd ered By: Adam Ferraro on 04-24-2025 Neutrophils (Bld) [#/Vol] 6.4 10*3/uL 2.0-7.7 [facility] Anion gap in Serum or Plasma Ordered By: Adam Ferraro on 04-24-2025 Anion gap [Moles/Vol] 12 mmol/L 5-[address] [facility] Automated lymphocyte count a s percentage of total leukocytesOrdered By: Adam Muñozmele on 04-24-2025 Lymphocytes/100 WBC Auto (Unsp spec) 21.0 % 19-41 [facility] BUN/creatinine ratioOrdered By: Adam Muñozmele on 04-24-2025 Urea nitrogen/Creatinine [Mass ratio] 10.5 mg/mg 10-20 [facility] Basophil percentageOrdered B y: Adam Muñozmele on 04-24-2025 Basophils/100 WBC (Bld) 1.1 % High 0-1 [facility] Bilirubin, totalOrdered By: Adam Muñozmele on 04-24-2025 Bilirubin [Mass/Vol] 0.16 mg/dL 0.00-1.30 [facility] CBC W/Diff, Automatedon 04-14 Absolute Lymph 2.17 X10 3/uL Normal 0.83-4.51 [facility] Comment on above: Order Comment: 111.2 [id number] 2200 Performed By: #### L 100.0100, L501.9060, L502.0250, L500.2500 #### [facility] [address] [place], [address] Absolute Neut 6.4 X10 3/uL Normal 2.0-7.7 [facility] Comment on above: Order Comment: 111.2 [id number] 2200 Performed By: #### L 100.0100, L501.9060, L502.0250, L500.2500 #### [facility] [address] [place], [address] Basophils/100 WBC (Bld) 1.1 % High 0-1 [facility] Comment on above: Order Comment: 111.2 [id number] 2200 Performed By: #### L 100.0100, L501.9060, L502.0250, L500.2500 #### [facility] [address] [place], [address] Eosinophils/100 WBC (Bld) 5.1 % High 0-5 [facility] Comment on above: Order Comment: 111.2 [id number] 2200 Performed By: #### L 100.0100, L501.9060, L502.0250, L500.2500 #### [facility] [address] [place], [address] Erythrocyte distribution width (RBC) [Ratio] 13.1 % Normal 11.6-14.6 [facility] Comment on above: Order Comment: 111.2 20241114 Performed By: #### L 100.0100, L501.9060, L502.0250, L500.2500 #### [facility] [address] [place], [address] Hematocrit (Bld) [Volume fraction] 38.2 % Low 40-54 [facility] Comment on above: Order Comment: 111.2 20241114 Performed By: #### L 100.0100, L501.9060, L502.0250, L500.2500 #### [facility] [address] [place], [address] Hemoglobin (Bld) [Mass/Vol] 12.7 g/dL Low 13.0-16.5 [facility] Comment on above: Order Comment: 111.2 20241114 Performed By: #### L 100.0100, L501.9060, L502.0250, L500.2500 #### [facility] [address] [place], [address] IG% 0.700 Normal 0.0-0.9 [facility] Comment on above: Order Comment: 111.2 20241114 Result Comment: IG% - Immature Granulocytes (promyelocytes, myelocytes and metamyelocytes) > 1% indicates that a LEFT SHIFT is Present. Performed By: #### L 100.0100, L501.9060, L502.0250, L500.2500 #### [facility] [address] [place], [address] Lymphocytes/100 WBC (Bld) 21.0 % Normal 19-41 [facility] Comment on above: Order Comment: 111.2 20241114 2200 Performed By: #### L 100.0100, L501.9060, L502.0250, L500.2500 #### [facility] [address] [place], [address] MCH (RBC) [Entitic mass] 30.4 pg Normal 27.0-32.0 [facility] Comment on above: Order Comment: 111.2 [id number] 2200 Performed By: #### L 100.0100, L501.9060, L502.0250, L500.2500 #### [facility] [address] [place], [address] MCHC (RBC) [Mass/Vol] 33.2 g/dL Normal 32-[address] [facility] Comment on above: Order Comment: 111.2 [id number] Performed By: #### L 100.0100, L501.9060, L502.0250, L500.2500 #### [facility] [address] [place], [address] MCV (RBC) [Entitic vol] 91.4 fL Normal 80-94 [facility] Comment on above: Order Comment: 111.2 [id number] Performed By: #### L 100.0100, L501.9060, L502.0250, L500.2500 #### [facility] [address] [place], [address] Monocytes/100 WBC (Bld) 9.9 % Normal 0-10 [facility] Comment on above: Order Comment: 111.2 [id number] Performed By: #### L 100.0100, L501.9060, L502.0250, L500.2500 #### [facility] [address] [place], [address] Neutrophils/100 WBC (Bld) 62.2 % Normal 47-70 [facility] Comment on above: Order Comment: 111.2 [id number] 2200 Performed By: #### L 100.0100, L501.9060, L502.0250, L500.2500 #### [facility] [address] [place], [address] Nucleated RBC (Bld) [#/Vol] 0 10*3/uL Normal 0-5 [facility] Comment on above: Order Comment: 111.2 [id number] 2200 Performed By: #### L 100.0100, L501.9060, L502.0250, L500.2500 #### [facility] [address] [place], [address] Platelet mean volume (Bld) [Entitic vol] 9.4 fL Normal 6.2-12.0 [facility] Comment on above: Order Comment: 111.2 [id number] 2200 Performed By: #### L 100.0100, L501.9060, L502.0250, L500.2500 #### [facility] [address] [place], [address] Platelets (Bld) [#/Vol] 245 10*3/uL Normal 150-450 [facility] Comment on above: Order Comment: 111.2 [id number] 2200 Performed By: #### L 100.0100, L501.9060, L502.0250, L500.2500 #### [facility] [address] [place], [address] RBC (Bld) [#/Vol] 4.18 10*6/uL Low 4.6-6.2 [facility] Comment on above: Order Comment: 111.2 [id number] 2200 Performed By: #### L 100.0100, L501.9060, L502.0250, L500.2500 #### [facility] [address] [place], [address] RDW SD 43.9 fl Normal 35.1-43.9 [facility] Comment on above: Order Comment: 111.2 [id number] 2200 Performed By: #### L 100.0100, L501.9060, L502.0250, L500.2500 #### [facility] [address] [place], [address] WBC (Bld) [#/Vol] 10.3 10*3/uL Normal 4.4-11.0 [facility] Comment on above: Order Comment: 111.2 [id number] Performed By: #### L 100.0100, L501.9060, L502.0250, L500.2500 #### [facility] [address] [place], [address] Carbon dioxide, total [Moles /volume] in Central venous bloodOrdered By: Adam Ferraro on 04-24-2025 CO2 [Moles/Vol] 21.9 mmol/L 21.0-32.0 [facility] Chloride assayOrdered By: Sabino Ferraro on 04-24-2025 Chloride [Moles/Vol] 107 mmol/L 98-108 [facility] Comprehensive Metabolic Prof ilon 04-24-2025 Albumin [Mass/Vol] 3.5 g/dL Normal 3.4-4.8 [facility] Comment on above: Order Comment: 111.2 20241114 Performed By: #### L 100.0100, L501.9060, L502.0250, L500.2500 #### [facility] [address] [place], [address] Albumin/Globulin [Mass ratio] 1.5 {ratio} Normal 0.9-2.4 [facility] Comment on above: Order Comment: 111.2 [id number] Performed By: #### L 100.0100, L501.9060, L502.0250, L500.2500 #### [facility] [address] [place], [address] ALK PHOS 76 U/L Normal 40-129 [facility] Comment on above: Order Comment: 111.2 [id number] Performed By: #### L 100.0100, L501.9060, L502.0250, L500.2500 #### [facility] [address] [place], [address] ALT [Catalytic activity/Vol] 11 U/L Normal <=46 [facility] Comment on above: Order Comment: 111.2 [id number] Performed By: #### L 100.0100, L501.9060, L502.0250, L500.2500 #### [facility] [address] [place], [address] AST [Catalytic activity/Vol] 16 U/L Normal <=37 [facility] Comment on above: Order Comment: 111.2 20241114 Performed By: #### L 100.0100, L501.9060, L502.0250, L500.2500 #### [facility] [address] [place], [address] Bilirubin [Mass/Vol] 0.16 mg/dL Normal 0.00-1.30 [facility] Comment on above: Order Comment: 111.2 20241114 Performed By: #### L 100.0100, L501.9060, L502.0250, L500.2500 #### [facility] [address] [place], [address] BUN/CRE 10.5 RATIO Normal 10-20 [facility] Comment on above: Order Comment: 111.2 20241114 Performed By: #### L 100.0100, L501.9060, L502.0250, L500.2500 #### [facility] [address] [place], [address] Calcium [Mass/Vol] 9.3 mg/dL Normal 7.6-11.0 [facility] Comment on above: Order Comment: 111.2 [id number] 0 Performed By: #### L 100.0100, L501.9060, L502.0250, L500.2500 #### [facility] [address] [place], [address] Chloride [Moles/Vol] 107 mmol/L Normal 98-108 [facility] Comment on above: Order Comment: 111.2 20241114 Performed By: #### L 100.0100, L501.9060, L502.0250, L500.2500 #### [facility] [address] [place], [address] CO2 [Moles/Vol] 21.9 mmol/L Normal 21.0-32.0 [facility] Comment on above: Order Comment: 111.2 20241114 Performed By: #### L 100.0100, L501.9060, L502.0250, L500.2500 #### [facility] [address] [place], [address] Creatinine [Mass/Vol] 2.41 mg/dL High 0.70-1.[address] [facility] Comment on above: Order Comment: 111.2 20241114 Performed By: #### L 100.0100, L501.9060, L502.0250, L500.2500 #### [facility] [address] [place], [address] GAP 12 Normal 5-15 [facility] Comment on above: Order Comment: 111.2 20241114 Performed By: #### L 100.0100, L501.9060, L502.0250, L500.2500 #### [facility] [address] [place], [address] GFR/1.73 sq M.predicted among non-blacks MDRD (S/P/Bld) [Vol rate/Area] 30 mL/min/{1.73_m2} Low >60 [facility] Comment on above: Order Comment: 111.2 20241114 Result Comment: mL/m in/1.73m2 CKD-EPI Creatinine Equation (2020) Performed By: #### L 100.0100, L501.9060, L502.0250, L500.2500 #### [facility] [address] [place], [address] Globulin (S) [Mass/Vol] 2.3 g/dL Normal 2.2-4.2 [facility] Comment on above: Order Comment: 111.2 [id number] 2200 Performed By: #### L 100.0100, L501.9060, L502.0250, L500.2500 #### [facility] [address] [place], [address] Glucose [Mass/Vol] 123 mg/dL High 70-99 [facility] Comment on above: Order Comment: 111.2 [id number] Performed By: #### L 100.0100, L501.9060, L502.0250, L500.2500 #### [facility] [address] [place], [address] Potassium [Moles/Vol] 4.6 mmol/L Normal 3.3-5.[address] [facility] Comment on above: Order Comment: 111.2 20241114 Performed By: #### L 100.0100, L501.9060, L502.0250, L500.2500 #### [facility] [address] [place], [address] Sodium [Moles/Vol] 140 mmol/L Normal 133-145 [facility] Comment on above: Order Comment: 111.2 [id number] 2200 Performed By: #### L 100.0100, L501.9060, L502.0250, L500.2500 #### [facility] [address] [place], [address] T PROT 5.9 g/dL Normal 5.9-8.4 [facility] Comment on above: Order Comment: 111.2 [id number] 2200 Performed By: #### L 100.0100, L501.9060, L502.0250, L500.2500 #### [facility] [address] [place], [address] Urea nitrogen [Mass/Vol] 25 mg/dL High 4-19 [facility] Comment on above: Order Comment: 111.2 [id number] 2200 Performed By: #### L 100.0100, L501.9060, L502.0250, L500.2500 #### [facility] [address] [place], [address] Eosinophil percentageOrdered By: Adam eFrraro on 04-24-2025 Eosinophils/100 WBC (Bld) 5.1 % High 0-5 [facility] Erythrocyte distribution wid th ratioOrdered By: Adam Ferraro on 04-24-2025 Erythrocyte distribution width (RBC) [Ratio] 13.1 % 11.6-14.6 [facility] Erythrocyte distribution wid th standard deviationOrdered By: Adam Ferraro on 04-24-2025 Erythrocyte distribution width (RBC) [Ratio] 43.9 fl 35.1-43.9 [facility] Glomerular filtration rate ( GFR) estimation/1.73 sq m using serum, plasma, or whole bOrdered By: Adam Ferraro on 04-24-2025 GFR/1.73 sq M.predicted among non-blacks MDRD (S/P/Bld) [Vol rate/Area] 30 mL/min/{1.73_m2} Low >60 [facility] Comment on above: mL/min/1.73m2 CKD-EP I Creatinine Equation (2020) Hematocrit Auto (Bld) [Volum e fraction]Ordered By: Adam Ferraro on 04-24-2025 Hematocrit (Bld) [Volume fraction] 38.2 % Low 40-54 [facility] Hemoglobin measurementOrdere d By: Adam Ferraro on 04-24-2025 Hemoglobin (Bld) [Mass/Vol] 12.7 g/dL Low 13.0-16.5 [facility] Immature granulocytes/100 WB C Auto (Bld)Ordered By: Adam Ferraro on 04-24-2025 Immature granulocytes/100 WBC (Bld) 0.700 % 0.0-0.9 [facility] Comment on above: IG% - Immature Granu locytes (promyelocytes, myelocytes and metamyelocytes) > 1% indicates that a LEFT SHIFT is Present. Laboratory - Chemistry and C hemistry - challengeOrdered By: Adam Ferraro on 04-24-2025 AST [Catalytic activity/Vol] 16 U/L <38 [facility] Lithiumon 04-24-2025 LI 0.60 mmol/L Normal 0.60-1.20 [facility] Comment on above: Order Comment: 111.2 [id number] Performed By: #### L 100.0100, L501.9060, L502.0250, L500.2500 #### [facility] [address] [place], [address] MCV (mean corpuscular volume ) determinationOrdered By: Adam Ferraro on 04-24-2025 MCV (RBC) [Entitic vol] 91.4 fL 80-94 [facility] Mean corpuscular hemoglobin (MCH) determinationOrdered By: Adam eFrraro on 04-24-2025 MCH (RBC) [Entitic mass] 30.4 pg 27.0-32.0 [facility] Mean corpuscular hemoglobin concentration (MCHC) determinationOrdered By: Adam Ferraro on 04-24-2025 MCHC (RBC) [Mass/Vol] 33.2 g/dL 32-[address] [facility] Mean platelet volume determi nationOrdered By: Adam Ferraro on 04-24-2025 Platelet mean volume (Bld) [Entitic vol] 9.4 fL 6.2-12.0 [facility] Monocyte percentageOrdered B y: Adam Ferraro on 04-24-2025 Monocytes/100 WBC (Bld) 9.9 % 0-10 [facility] Neutrophil percentageOrdered By: Adam Ferraro on 04-24-2025 Neutrophils/100 WBC (Bld) 62.2 % 47-70 [facility] Nucleated red blood cell per centageOrdered By: Adam Ferraro on 04-24-2025 Nucleated RBC/100 WBC (Bld) [Ratio] 0 % 0-5 [facility] Phosphoruson 04-24-2025 Phosphate [Mass/Vol] 4.8 mg/dL High 2.7-4.5 [facility] Comment on above: Order Comment: 111.2 [id number] 2200 Performed By: #### L 100.0100, L501.9060, L502.0250, L500.2500 #### [facility] [place], [address] Platelet countOrdered By: Sabino Ferraro on 04-24-2025 Platelets (Bld) [#/Vol] 245 10*3/uL 150-450 [facility] Potassium measurement (mass/ volume)Ordered By: Adam Ferraro on 04-24-2025 Potassium (Unsp spec) [Mass/Vol] 4.6 mmol/L 3.3-5.1 [facility] RBC Auto (Bld) [#/Vol]Ordere d By: Adam Ferraro on 04-24-2025 RBC (Bld) [#/Vol] 4.18 10*6/uL Low 4.6-6.2 [facility] Serum creatinine measurement (mass/volume)Ordered By: Adam Ferraro on 04-24-2025 Creatinine [Mass/Vol] 2.41 mg/dL High 0.70-1.[address] [facility] Serum globulin measurementOr dered By: Adam Ferraro on 04-24-2025 Globulin (S) [Mass/Vol] 2.3 g/dL 2.2-4.2 [facility] Serum glucose measurement (m ass/volume)Ordered By: Adam Ferraro on 04-24-2025 Glucose [Mass/Vol] 123 mg/dL High 70-99 [facility] Serum or plasma alanine sesay otransferase (ALT) measurementOrdered By: Adam Ferraro on 04-24-2025 ALT [Catalytic activity/Vol] 11 U/L <47 [facility] Serum or plasma albumin you urement (mass/volume)Ordered By: Adam Ferraro on 04-24-2025 Albumin [Mass/Vol] 3.5 g/dL 3.4-4.8 [facility] Serum or plasma albumin/glob ulin mass ratioOrdered By: Adam Ferraro on 04-24-2025 Albumin/Globulin [Mass ratio] 1.5 {ratio} 0.9-2.4 [facility] Serum or plasma alkaline hal sphatase measurementOrdered By: Adam Ferraro on 04-24-2025 ALP [Catalytic activity/Vol] 76 U/L 40-129 [facility] Serum or plasma calcium you urement (mass/volume)Ordered By: Adam Ferraro on 04-24-2025 Calcium [Mass/Vol] 9.3 mg/dL 7.6-11.0 [facility] Serum or plasma urea nitroge n measurement (mass/volume)Ordered By: Adam Ferraro on 04-24-2025 Urea nitrogen [Mass/Vol] 25 mg/dL High 4-19 [facility] Sodium levelOrdered By: Spike Ferraro on 04-24-2025 Sodium [Moles/Vol] 140 mmol/L 133-145 [facility] Total proteinOrdered By: Benoit Ferraro on 04-24-2025 Protein [Mass/Vol] 5.9 g/dL 5.9-8.4 [facility] White blood cell (WBC) count Ordered By: Adam Ferraro on 04-24-2025 WBC (Bld) [#/Vol] 10.3 10*3/uL 4.4-11.0 [facility] Lithiumon 04-01-2025 LI 0.64 mmol/L Normal 0.60-1.20 [facility] Comment on above: Order Comment: 111.2 [id number] 5 Performed By: #### L 100.0100, L501.9060, L502.0250, L500.2500 #### [facility] [place], [address] Serum or plasma uric acid me asurement (mass/volume)Ordered By: Alfredo Phipps on 03-27-2025 Urate [Mass/Vol] 6.5 mg/dL 3.5-7.2 [facility] Comment on above: The drugs N-Acetylcy steine and Metamizole may falsely depress this assay. Uric Acidon 03-27-2025 URIC 6.5 mg/dL Normal 3.5-7.2 [facility] Comment on above: Order Comment: 111.2 Result Comment: The drugs N-Acetylcysteine and Metamizole may falsely depress this assay. Performed By: #### L 100.0100, L501.9060, L502.0250, L500.2500 #### [facility] [address] [place], [address] Microalb:Creat Ratio,Random URon 03-05-2025 Creatinine [Mass/Vol] 72.80 mg/dL Normal 39.00- 259. 00 [facility] Comment on above: Performed By: #### L 100.0100, L501.9060, L502.0250, L500.2500 #### [facility] [address] [place], [address] MALB:CREAT UNABLE TO CALCULATE Normal [facility] Comment on above: Performed By: #### L 100.0100, L501.9060, L502.0250, L500.2500 #### [facility] [address] [place] [address] MICROALBUMIN,UR < 12.0 Normal NO RANGE EST. [facility] Comment on above: Performed By: #### L 100.0100, L501.9060, L502.0250, L500.2500 #### [facility] [address] [place], [address] Microalbumin/creat ratio urO rdered By: Adam eFrraro on 03-04-2025 Urine microalbumin/creatinine ratio measurement UNABLE TO CALCULATE mg/g CRE [facility] Random urine creatinine you urement (mass/volume)Ordered By: Adam Ferraro on 03-04-2025 Creatinine Unsp time (U) [Mass/Vol] 72.80 mg/dL 39.00-259. 00 [facility] Urine albumin measurement wi th detection limit of 20 mg/L or less (mass/volume)Ordered By: Adam Ferraro on 03-04-2025 Albumin DL <= 20 mg/L (U) [Mass/Vol] < 12.0 mg/L NO RANGE EST. [facility] Absolute lymphocyte countOrd ered By: Alfredo Phipps on 02-27-2025 Lymphocytes Auto (Unsp spec) [#/Vol] 1.42 10*3/uL 0.83-4.51 [facility] Absolute neutrophil countOrd ered By: Alfredo Phipps on 02-27-2025 Neutrophils (Bld) [#/Vol] 17.7 10*3/uL High 2.0-7.7 [facility] Anion gap in Serum or Plasma Ordered By: Alfredo Phipps on 02-27-2025 Anion gap [Moles/Vol] 12 mmol/L 5-[address] [facility] Automated lymphocyte count a s percentage of total leukocytesOrdered By: Alfredo Phipps on 02-27-2025 Lymphocytes/100 WBC Auto (Unsp spec) 6.9 % Low - [facility] BUN/creatinine ratioOrdered By: Alfredo Phipps on 02-27-2025 Urea nitrogen/Creatinine [Mass ratio] 12.7 mg/mg 10- [facility] Basophil percentageOrdered B y: Alfredo Phipps on 02-27-2025 Basophils/100 WBC (Bld) 0.2 % 0-1 [facility] Bilirubin directOrdered By: Alfredo Phipps on 02-27-2025 Bilirubin.direct [Mass/Vol] 0.10 mg/dL 0.00-0.30 [facility] Bilirubin, Directon 02-28-20 25 Bilirubin.direct [Mass/Vol] 0.10 mg/dL Normal 0.00-0.30 [facility] Comment on above: Order Comment: 111.2 Performed By: #### L 100.0100, L501.9060, L502.0250, L500.2500 #### [facility] [address] [facility] [place], [place], [id number] Bilirubin, totalOrdered By: Alfredo Phipps on 02-27-2025 Bilirubin [Mass/Vol] 0.19 mg/dL 0.00-1.30 [facility] CBC W/Diff, Automatedon 02-12 Absolute Lymph 1.42 X10 3/uL Normal 0.83-4.51 [facility] Comment on above: Order Comment: 111.2 Performed By: #### L 100.0100, L501.9060, L502.0250, L500.2500 #### [facility] [address] [place], [address] Absolute Neut 17.7 X10 3/uL High 2.0-7.7 [facility] Comment on above: Order Comment: 111.2 Performed By: #### L 100.0100, L501.9060, L502.0250, L500.2500 #### [facility] [address] [place], [address] Basophils/100 WBC (Bld) 0.2 % Normal 0-1 [facility] Comment on above: Order Comment: 111.2 Performed By: #### L 100.0100, L501.9060, L502.0250, L500.2500 #### [facility] [address] [place], [address] Eosinophils/100 WBC (Bld) 0.0 % Normal 0-5 [facility] Comment on above: Order Comment: 111.2 Performed By: #### L 100.0100, L501.9060, L502.0250, L500.2500 #### [facility] [address] [place], [address] Erythrocyte distribution width (RBC) [Ratio] 13.3 % Normal 11.6-14.6 [facility] Comment on above: Order Comment: 111.2 Performed By: #### L 100.0100, L501.9060, L502.0250, L500.2500 #### [facility] [address] [place], [address] Hematocrit (Bld) [Volume fraction] 39.0 % Low 40-54 [facility] Comment on above: Order Comment: 111.2 Performed By: #### L 100.0100, L501.9060, L502.0250, L500.2500 #### [facility] [address] [place], [address] Hemoglobin (Bld) [Mass/Vol] 13.1 g/dL Normal 13.0-16.5 [facility] Comment on above: Order Comment: 111.2 Performed By: #### L 100.0100, L501.9060, L502.0250, L500.2500 #### [facility] [address] [place], [address] IG% 0.900 Normal 0.0-0.9 [facility] Comment on above: Order Comment: 111.2 Result Comment: IG% - Immature Granulocytes (promyelocytes, myelocytes and metamyelocytes) > 1% indicates that a LEFT SHIFT is Present. Performed By: #### L 100.0100, L501.9060, L502.0250, L500.2500 #### [facility] [address] [place], [address] Lymphocytes/100 WBC (Bld) 6.9 % Low 19-41 [facility] Comment on above: Order Comment: 111.2 Performed By: #### L 100.0100, L501.9060, L502.0250, L500.2500 #### [facility] [address] [place], [address] MCH (RBC) [Entitic mass] 30.1 pg Normal 27.0-32.0 [facility] Comment on above: Order Comment: 111.2 Performed By: #### L 100.0100, L501.9060, L502.0250, L500.2500 #### [facility] [address] [place], [address] MCHC (RBC) [Mass/Vol] 33.6 g/dL Normal 32-[address] [facility] Comment on above: Order Comment: 111.2 Performed By: #### L 100.0100, L501.9060, L502.0250, L500.2500 #### [facility] [address] [place], [address] MCV (RBC) [Entitic vol] 89.7 fL Normal 80-94 [facility] Comment on above: Order Comment: 111.2 Performed By: #### L 100.0100, L501.9060, L502.0250, L500.2500 #### [facility] [address] [place], [address] Monocytes/100 WBC (Bld) 6.4 % Normal 0-10 [facility] Comment on above: Order Comment: 111.2 Performed By: #### L 100.0100, L501.9060, L502.0250, L500.2500 #### [facility] [address] [place], [address] Neutrophils/100 WBC (Bld) 85.6 % High 47-70 [facility] Comment on above: Order Comment: 111.2 Performed By: #### L 100.0100, L501.9060, L502.0250, L500.2500 #### [facility] [address] [place], [address] Nucleated RBC (Bld) [#/Vol] 0 10*3/uL Normal 0-5 [facility] Comment on above: Order Comment: 111.2 Performed By: #### L 100.0100, L501.9060, L502.0250, L500.2500 #### [facility] [address] [place], [address] Platelet mean volume (Bld) [Entitic vol] 9.3 fL Normal 6.2-12.0 [facility] Comment on above: Order Comment: 111.2 Performed By: #### L 100.0100, L501.9060, L502.0250, L500.2500 #### [facility] [address] [place], [address] Platelets (Bld) [#/Vol] 274 10*3/uL Normal 150-450 [facility] Comment on above: Order Comment: 111.2 Performed By: #### L 100.0100, L501.9060, L502.0250, L500.2500 #### [facility] [address] [place], [address] RBC (Bld) [#/Vol] 4.35 10*6/uL Low 4.6-6.2 [facility] Comment on above: Order Comment: 111.2 Performed By: #### L 100.0100, L501.9060, L502.0250, L500.2500 #### [facility] [address] [place], [address] RDW SD 43.8 fl Normal 35.1-43.9 [facility] Comment on above: Order Comment: 111.2 Performed By: #### L 100.0100, L501.9060, L502.0250, L500.2500 #### [facility] [address] [place], [address] WBC (Bld) [#/Vol] 20.6 10*3/uL High 4.4-11.0 [facility] Comment on above: Order Comment: 111.2 Performed By: #### L 100.0100, L501.9060, L502.0250, L500.2500 #### [facility] [address] [place], [address] Carbon dioxide, total [Moles /volume] in Central venous bloodOrdered By: Alfredo Phipps on 02-27-2025 CO2 [Moles/Vol] 20.5 mmol/L Low 21.0-32.0 [facility] Chloride assayOrdered By: Chan Fiore on 02-27-2025 Chloride [Moles/Vol] 105 mmol/L 98-108 [facility] Comprehensive Metabolic Prof ilon 02-27-2025 Albumin [Mass/Vol] 3.9 g/dL Normal 3.4-4.8 [facility] Comment on above: Order Comment: 111.2 Performed By: #### L 100.0100, L501.9060, L502.0250, L500.2500 #### [facility] [address] [place], [address] Albumin/Globulin [Mass ratio] 1.6 {ratio} Normal 0.9-2.4 [facility] Comment on above: Order Comment: 111.2 Performed By: #### L 100.0100, L501.9060, L502.0250, L500.2500 #### [facility] [address] [place], [address] ALK PHOS 66 U/L Normal 40-129 [facility] Comment on above: Order Comment: 111.2 Performed By: #### L 100.0100, L501.9060, L502.0250, L500.2500 #### [facility] [address] [place], [address] ALT [Catalytic activity/Vol] 13 U/L Normal <=46 [facility] Comment on above: Order Comment: 111.2 Performed By: #### L 100.0100, L501.9060, L502.0250, L500.2500 #### [facility] [address] [place], [address] AST [Catalytic activity/Vol] 11 U/L Normal <=37 [facility] Comment on above: Order Comment: 111.2 Performed By: #### L 100.0100, L501.9060, L502.0250, L500.2500 #### [facility] [address] [place], [address] Bilirubin [Mass/Vol] 0.19 mg/dL Normal 0.00-1.30 [facility] Comment on above: Order Comment: 111.2 Performed By: #### L 100.0100, L501.9060, L502.0250, L500.2500 #### [facility] [address] [place], [address] BUN/CRE 12.7 RATIO Normal 10-20 [facility] Comment on above: Order Comment: 111.2 Performed By: #### L 100.0100, L501.9060, L502.0250, L500.2500 #### [facility] [address] [place], [address] Calcium [Mass/Vol] 9.8 mg/dL Normal 7.6-11.0 [facility] Comment on above: Order Comment: 111.2 Performed By: #### L 100.0100, L501.9060, L502.0250, L500.2500 #### [facility] [address] [place], [address] Chloride [Moles/Vol] 105 mmol/L Normal 98-108 [facility] Comment on above: Order Comment: 111.2 Performed By: #### L 100.0100, L501.9060, L502.0250, L500.2500 #### [facility] [address] [place], [address] CO2 [Moles/Vol] 20.5 mmol/L Low 21.0-32.0 [facility] Comment on above: Order Comment: 111.2 Performed By: #### L 100.0100, L501.9060, L502.0250, L500.2500 #### [facility] [address] [place], [address] Creatinine [Mass/Vol] 2.32 mg/dL High 0.70-1.[address] [facility] Comment on above: Order Comment: 111.2 Performed By: #### L 100.0100, L501.9060, L502.0250, L500.2500 #### [facility] [address] [place], [address] GAP 12 Normal 5-15 [facility] Comment on above: Order Comment: 111.2 Performed By: #### L 100.0100, L501.9060, L502.0250, L500.2500 #### [facility] [address] [place], [address] GFR/1.73 sq M.predicted among non-blacks MDRD (S/P/Bld) [Vol rate/Area] 31 mL/min/{1.73_m2} Low >60 [facility] Comment on above: Order Comment: 111.2 Result Comment: mL/m in/1.73m2 CKD-EPI Creatinine Equation (2020) Performed By: #### L 100.0100, L501.9060, L502.0250, L500.2500 #### [facility] [address] [place], [address] Globulin (S) [Mass/Vol] 2.4 g/dL Normal 2.2-4.2 [facility] Comment on above: Order Comment: 111.2 Performed By: #### L 100.0100, L501.9060, L502.0250, L500.2500 #### [facility] [address] [place], [address] Glucose [Mass/Vol] 134 mg/dL High 70-99 [facility] Comment on above: Order Comment: 111.2 Performed By: #### L 100.0100, L501.9060, L502.0250, L500.2500 #### [facility] [address] [place], [address] Potassium [Moles/Vol] 4.4 mmol/L Normal 3.3-5.[address] [facility] Comment on above: Order Comment: 111.2 Performed By: #### L 100.0100, L501.9060, L502.0250, L500.2500 #### [facility] [address] [place], [address] Sodium [Moles/Vol] 138 mmol/L Normal 133-145 [facility] Comment on above: Order Comment: 111.2 Performed By: #### L 100.0100, L501.9060, L502.0250, L500.2500 #### [facility] [address] [place], [address] T PROT 6.2 g/dL Normal 5.9-8.4 [facility] Comment on above: Order Comment: 111.2 Performed By: #### L 100.0100, L501.9060, L502.0250, L500.2500 #### [facility] [address] [place], [address] Urea nitrogen [Mass/Vol] 29 mg/dL High 4-19 [facility] Comment on above: Order Comment: 111.2 Performed By: #### L 100.0100, L501.9060, L502.0250, L500.2500 #### [facility] [address] [place], [address] Eosinophil percentageOrdered By: Alfredo Phipps on 02-27-2025 Eosinophils/100 WBC (Bld) 0.0 % 0-5 [facility] Erythrocyte distribution wid th (RBC) [Ratio]Ordered By: Alfredo Phipps on 02-27-2025 Erythrocyte distribution width (RBC) [Entitic vol] 43.8 fL 35.1-43.9 [facility] Erythrocyte distribution wid th ratioOrdered By: Alfredo Phipps on 02-27-2025 Erythrocyte distribution width (RBC) [Ratio] 13.3 % 11.6-14.6 [facility] Erythrocyte distribution wid th standard deviationOrdered By: Alfredo Phipps on 02-27-2025 Erythrocyte distribution width (RBC) [Ratio] 43.8 fl 35.1-43.9 [facility] GFR/1.73 sq M.predicted miles g non-blacks MDRD (S/P/Bld) [Vol rate/Area]Ordered By: Alfredo Phipps on 02-27-2025 Estimated GFR (MDRD) Non-Af Amer 31 Low >60 [facility] Comment on above: mL/min/1.73m2 CKD-EP I Creatinine Equation (2020) Glomerular filtration rate ( GFR) estimation/1.73 sq m using serum, plasma, or whole bOrdered By: Alfredo Phipps on 02-27-2025 GFR/1.73 sq M.predicted among non-blacks MDRD (S/P/Bld) [Vol rate/Area] 31 mL/min/{1.73_m2} Low >60 [facility] Comment on above: mL/min/1.73m2 CKD-EP I Creatinine Equation (2020) Hematocrit Auto (Bld) [Volum e fraction]Ordered By: Alfredo Phipps on 02-27-2025 Hematocrit (Bld) [Volume fraction] 39.0 % Low 40-54 [facility] Hemoglobin measurementOrdere d By: Alfredo Phipps on 02-27-2025 Hemoglobin (Bld) [Mass/Vol] 13.1 g/dL 13.0-16.5 [facility] Immature granulocytes/100 WB C Auto (Bld)Ordered By: Alfredo Phipps on 02-27-2025 Immature granulocytes/100 WBC (Bld) 0.900 % 0.0-0.9 [facility] Comment on above: IG% - Immature Granu locytes (promyelocytes, myelocytes and metamyelocytes) > 1% indicates that a LEFT SHIFT is Present. Laboratory - Chemistry and C hemistry - challengeOrdered By: Alfredo Phipps on 02-27-2025 AST [Catalytic activity/Vol] 11 U/L <38 [facility] Lithiumon 02-27-2025 LI 0.60 mmol/L Normal 0.60-1.20 [facility] Comment on above: Order Comment: 111.2 Performed By: #### L 100.0100, L501.9060, L502.0250, L500.2500 #### [facility] [address] [place], [address] [place] levelOrdered By: Jennifer Phipps on 02-27-2025 [place] Level 0.60 mmol/L 0.60-1.20 [facility] Lymphocytes Auto (Unsp spec) [#/Vol]Ordered By: Alfredo Phipps on 02-27-2025 Lymphocytes (Bld) [#/Vol] 1.42 10*3/uL 0.83-4.51 [facility] Lymphocytes/100 WBC Auto (Un sp spec)Ordered By: Alfredo Phipps on 02-27-2025 Lymphocytes/100 WBC (Bld) 6.9 % Low 19-41 [facility] MCV (mean corpuscular volume ) determinationOrdered By: Alfredo Phipps on 02-27-2025 MCV (RBC) [Entitic vol] 89.7 fL 80-94 [facility] Mean corpuscular hemoglobin (MCH) determinationOrdered By: Alfredo Phipps on 02-27-2025 MCH (RBC) [Entitic mass] 30.1 pg 27.0-32.0 [facility] Mean corpuscular hemoglobin concentration (MCHC) determinationOrdered By: Alfredo Phipps on 02-27-2025 MCHC (RBC) [Mass/Vol] 33.6 g/dL 32-[address] [facility] Mean platelet volume determi nationOrdered By: Alfredo Phipps on 02-27-2025 Platelet mean volume (Bld) [Entitic vol] 9.3 fL 6.2-12.0 [facility] Monocyte percentageOrdered B y: Alfredo Phipps on 02-27-2025 Monocytes/100 WBC (Bld) 6.4 % 0-10 [facility] Neutrophil percentageOrdered By: Alfredo Phipps on 02-27-2025 Neutrophils/100 WBC (Bld) 85.6 % High 47-70 [facility] Nucleated red blood cell per centageOrdered By: Alfredo Phipps on 02-27-2025 Nucleated RBC/100 WBC (Bld) [Ratio] 0 % 0-5 [facility] Platelet countOrdered By: Chan Fiore on 02-27-2025 Platelets (Bld) [#/Vol] 274 10*3/uL 150-450 [facility] Potassium (Unsp spec) [Mass/ Vol]Ordered By: Alfredo Phipps on 02-27-2025 Potassium [Moles/Vol] 4.4 mmol/L 3.3-5.[address] [facility] Potassium measurement (mass/ volume)Ordered By: Alfredo Phipps on 02-27-2025 Potassium (Unsp spec) [Mass/Vol] 4.4 mmol/L 3.3-5.1 [facility] RBC Auto (Bld) [#/Vol]Ordere d By: Alfredo Phipps on 02-27-2025 RBC (Bld) [#/Vol] 4.35 10*6/uL Low 4.6-6.2 [facility] Serum creatinine measurement (mass/volume)Ordered By: Alfredo Phipps on 02-27-2025 Creatinine [Mass/Vol] 2.32 mg/dL High 0.70-1.[address] [facility] Serum globulin measurementOr dered By: Alfredo Phipps on 02-27-2025 Globulin (S) [Mass/Vol] 2.4 g/dL 2.2-4.2 [facility] Serum glucose measurement (m ass/volume)Ordered By: Alfredo Phipps on 02-27-2025 Glucose [Mass/Vol] 134 mg/dL High 70-99 [facility] Serum or plasma alanine sesay otransferase (ALT) measurementOrdered By: Alfredo Phipps on 02-27-2025 ALT [Catalytic activity/Vol] 13 U/L <47 [facility] Serum or plasma albumin you urement (mass/volume)Ordered By: Alfredo Phipps on 02-27-2025 Albumin [Mass/Vol] 3.9 g/dL 3.4-4.8 [facility] Serum or plasma albumin/glob ulin mass ratioOrdered By: Alfredo Phipps on 02-27-2025 Albumin/Globulin [Mass ratio] 1.6 {ratio} 0.9-2.4 [facility] Serum or plasma alkaline hal sphatase measurementOrdered By: Alfredo Phipps on 02-27-2025 ALP [Catalytic activity/Vol] 66 U/L 40-129 [facility] Serum or plasma calcium you urement (mass/volume)Ordered By: Alfredo Phipps on 02-27-2025 Calcium [Mass/Vol] 9.8 mg/dL 7.6-11.0 [facility] Serum or plasma urea nitroge n measurement (mass/volume)Ordered By: Alfredo Phipps on 02-27-2025 Urea nitrogen [Mass/Vol] 29 mg/dL High 4-19 [facility] Sodium levelOrdered By: Raffi Phipps on 02-27-2025 Sodium [Moles/Vol] 138 mmol/L 133-145 [facility] Total proteinOrdered By: Jennifer Phipps on 02-27-2025 Protein [Mass/Vol] 6.2 g/dL 5.9-8.4 [facility] White blood cell (WBC) count Ordered By: Alfredo Phipps on 02-27-2025 WBC (Bld) [#/Vol] 20.6 10*3/uL High 4.4-11.0 [facility] Serum or plasma uric acid me asurement (mass/volume)Ordered By: Adam Ferraro on 02-25-2025 Urate [Mass/Vol] 6.3 mg/dL 3.5-7.2 [facility] Comment on above: The drugs N-Acetylcy steine and Metamizole may falsely depress this assay. Uric Acidon 02-25-2025 URIC 6.3 mg/dL Normal 3.5-7.2 [facility] Comment on above: Order Comment: 111.2 Result Comment: The drugs N-Acetylcysteine and Metamizole may falsely depress this assay. Performed By: #### L 100.0100, L501.9060, L502.0250, L500.2500 #### [facility] [address] [place], [address] Calculated very low density lipoprotein (VLDL) cholesterol measurementOrdered By: Alfredo Phipps on 02-11-2025 Calculated very low density lipoprotein (VLDL) cholesterol measurement 43 mg/dL High 5-40 [facility] VLDL Cholesterol 43 mg/dL High 40 [facility] LDL calc ser/plasOrdered By: Alfredo Phipps on 02-11-2025 Cholesterol in LDL [Mass/Vol] 67 mg/dL [facility] Comment on above: Lobmmumgbk=338-186 m g/dL & Higher Afel=675 mg/dL or greater LDL Cholesterol, Calculated 67 mg/dL [facility] Comment on above: Ieabgpoyic=496-175 m g/dL & Higher Gvjb=360 mg/dL or greater Lipid Profileon 02-11-2025 CHOL:HDL 4.53 Normal [facility] Comment on above: Order Comment: 111.2 Performed By: #### L 100.0100, L501.9060, L502.0250, L500.2500 #### [facility] [address] [place], [address] Cholesterol [Mass/Vol] 141 mg/dL Normal <=200 [facility] Comment on above: Order Comment: 111.2 Result Comment: Chol esterol level, Desirable <200 mg/dL Borderline high cholesterol 200-239 mg/dL High cholesterol >=240 mg/dL Recommendations of the NCEP Adult Treatment Panel for the following risk-cutoff thresholds for the [place] population. Performed By: #### L 100.0100, L501.9060, L502.0250, L500.2500 #### [facility] [address] [place], [address] Cholesterol in HDL [Mass/Vol] 31 mg/dL Low [facility] Comment on above: Order Comment: 111.2 Result Comment: Fabienne onal Cholesterol Education Program (NCEP) guidelines: <40 mg/dL: Low HDL-cholesterol (major risk factor for CHD) >= 60 mg/dL: High HDL-cholesterol (negative risk factor for CHD) HDL-cholesterol is affected by a number of factors, e.g. smoking, exercise, hormones, sex and age. Performed By: #### L 100.0100, L501.9060, L502.0250, L500.2500 #### [facility] [address] [place], [address] Cholesterol in LDL [Mass/Vol] 67 mg/dL Normal [facility] Comment on above: Order Comment: 111.2 Result Comment: Bord yczaoh=538-759 mg/dL Higher Witt=953 mg/dL or greater Performed By: #### L 100.0100, L501.9060, L502.0250, L500.2500 #### [facility] [address] [place], [address] Cholesterol in VLDL [Mass/Vol] 43 mg/dL High 5-40 [facility] Comment on above: Order Comment: 111.2 Performed By: #### L 100.0100, L501.9060, L502.0250, L500.2500 #### [facility] [facility] [address] [place], [place], [address] Triglyceride [Mass/Vol] 215 mg/dL High [facility] Comment on above: Order Comment: 111.2 Result Comment: The drugs N-Acetylcysteine and Metamizole may falsely depress this assay. Normal range: <150 mg/dL Borderline High: 150-199 mg/dL High: 200-499 mg/dL Very High: >500 mg/dL Performed By: #### L 100.0100, L501.9060, L502.0250, L500.2500 #### [facility] [address] [place], [place], [id number] Screening total cholesterol/ high density lipoprotein (HDL) cholesterol ratioOrdered By: Alfredo Phipps on 02-11-2025 Cholesterol.total/Choles terol in HDL [Mass ratio] 4.53 {ratio} [facility] Serum or plasma cholesterol in HDL measurement (mass/volume)Ordered By: Alfredo Phipps on 02-11-2025 Cholesterol in HDL [Mass/Vol] 31 mg/dL Low >40 [facility] Comment on above: National Cholesterol Education Program (NCEP) guidelines:<40 mg/dL: Low HDL-cholesterol (major risk factor for CHD)>= 60 mg/dL: High HDL-cholesterol (negative risk factor for CHD)HDL-cholesterol is affected by a number of factors, e.g. smoking, exercise, hormones, sex and age. Serum or plasma cholesterol measurement (mass/volume)Ordered By: Alfredo Phipps on 02-11-2025 Cholesterol [Mass/Vol] 141 mg/dL <201 [facility] Comment on above: Cholesterol level, D esirable <200 mg/dLBorderline high cholesterol 200-239 mg/dLHigh cholesterol >=240 mg/dLRecommendations of the NCEP Adult Treatment Panel for the following risk-cutoff thresholds for the [place] population. Triglycerides measurementOrd ered By: Alfredo Phipps on 02-11-2025 Triglyceride [Mass/Vol] 215 mg/dL High <199 [facility] Comment on above: The drugs N-Acetylcy steine and Metamizole may falsely depress this assay. Normal range: <150 mg/dLBorderline High: 150-199 mg/dLHigh: 200-499 mg/dLVery High: >500 mg/dL Hemoglobin A1con 02-06-2025 HbA1c (Bld) [Mass fraction] 5.8 % Normal <=5.6 [facility] Comment on above: Order Comment: 111.2 Performed By: #### L 100.0100, L501.9060, L502.0250, L500.2500 #### [facility] [address] [place], [place], [id number] Hemoglobin A1c percentageOrd ered By: Alfredo Phipps on 02-06-2025 HbA1c (Bld) [Mass fraction] 5.8 % >5.7 [facility] Lithiumon 01-30-2025 LI 0.71 mmol/L Normal 0.60-1.20 [facility] Comment on above: Order Comment: 111.2 Performed By: #### L 100.0100, L501.9060, L502.0250, L500.2500 #### [facility] [address] [place], [place], [id number] [place] levelOrdered By: Benoit Ferraro on 01-30-2025 [place] Level 0.71 mmol/L 0.60-1.20 [facility] Serum or plasma uric acid me asurement (mass/volume)Ordered By: Adam Ferraro on 01-25-2025 Urate [Mass/Vol] 6.2 mg/dL 3.5-7.2 [facility] Comment on above: The drugs N-Acetylcy steine and Metamizole may falsely depress this assay. Uric Acidon 01-25-2025 URIC 6.2 mg/dL Normal 3.5-7.2 [facility] Comment on above: Order Comment: 111.2 Result Comment: The drugs N-Acetylcysteine and Metamizole may falsely depress this assay. Performed By: #### L 100.0100, L501.9060, L502.0250, L500.2500 #### [facility] [address] [place], [address] Microalb:Creat Ratio,Random URon 01-03-2025 Creatinine [Mass/Vol] 104.00 mg/dL Normal NO RAN GE EST. [facility] Comment on above: Performed By: #### L 100.0100, L501.9060, L502.0250, L500.2500 #### [facility] [address] [place], [address] MALB:CRE [place] Normal <30 mg/g CRE [facility] Comment on above: Performed By: #### L 100.0100, L501.9060, L502.0250, L500.2500 #### [facility] [address] [place], [place], [id number] MICROALBUMIN,UR < 5.0 Normal NO RANGE EST. [facility] Comment on above: Performed By: #### L 100.0100, L501.9060, L502.0250, L500.2500 #### [facility] [address] [place], [place], [id number] Random urine microalbumin me asurementOrdered By: Adam Ferraro on 01-03-2025 Urine Random Microalbumin < 5.0 mg/L NO RANGE EST. [facility] Urine albumin/creatinine rat io for detection of microalbuminuriaOrdered By: Adam Ferraro on 01-03-2025 Urine Microalbumin/Creatinine Ratio TNP [facility] Comment on above: Test not performed Urine creatinine measurement (mass/volume)Ordered By: Adam Ferraro on 01-03-2025 Creatinine (U) [Mass/Vol] 104.00 mg/dL NO RANGE EST. [facility] Absolute lymphocyte countOrd ered By: Adam Ferraro on 01-02-2025 Lymphocytes Auto (Unsp spec) [#/Vol] 2.41 10*3/uL 0.83-4.51 [facility] Absolute neutrophil countOrd ered By: Adam Ferraro on 01-02-2025 Neutrophils (Bld) [#/Vol] 5.6 10*3/uL 2.0-7.7 [facility] Albumin to globulin ratioOrd ered By: Adam Ferraro on 01-02-2025 Albumin/Globulin [Mass ratio] 1.0 {ratio} 0.9-2.4 [facility] Automated lymphocyte count a s percentage of total leukocytesOrdered By: Aadm Ferraro on 01-02-2025 Lymphocytes/100 WBC Auto (Unsp spec) 25.1 % [facility] Basophil percentageOrdered B y: Adam Wandamele on 01-02-2025 Basophils/100 WBC (Bld) 1.1 % High 0-1 [facility] Bilirubin, totalOrdered By: Adam Muñozmele on 01-02-2025 Bilirubin [Mass/Vol] 0.30 mg/dL 0.20-1.00 [facility] Comment on above: For patients on eltr ombopag therapy, use of Dimension [place] TBIL is not recommended. Blood urea nitrogen (BUN)/cr eatinine ratioOrdered By: Adam Ferraro on 01-02-2025 Urea nitrogen/Creatinine [Mass ratio] 12.6 mg/mg 09-02 [facility] CBC W/Diff, Automatedon 12-15 Absolute Lymph 2.41 X10 3/uL Normal 0.83-4.51 [facility] Comment on above: Order Comment: 111.2 Performed By: #### L 500.4050, L100.0100, L501.9060, L501.2300 #### [facility] [address] [place], [address] Absolute Neut 5.6 X10 3/uL Normal 2.0-7.7 [facility] Comment on above: Order Comment: 111.2 Performed By: #### L 500.4050, L100.0100, L501.9060, L501.2300 #### [facility] [address] [place], [address] Basophils/100 WBC (Bld) 1.1 % High 0-1 [facility] Comment on above: Order Comment: 111.2 Performed By: #### L 500.4050, L100.0100, L501.9060, L501.2300 #### [facility] [address] [place], [address] Eosinophils/100 WBC (Bld) 5.3 % High 0-5 [facility] Comment on above: Order Comment: 111.2 Performed By: #### L 500.4050, L100.0100, L501.9060, L501.2300 #### [facility] [address] [place], [address] Erythrocyte distribution width (RBC) [Ratio] 12.9 % Normal 11.6-14.6 [facility] Comment on above: Order Comment: 111.2 Performed By: #### L 500.4050, L100.0100, L501.9060, L501.2300 #### [facility] [address] [place], [address] Hematocrit (Bld) [Volume fraction] 40.5 % Normal 40-54 [facility] Comment on above: Order Comment: 111.2 Performed By: #### L 500.4050, L100.0100, L501.9060, L501.2300 #### [facility] [address] [place], [address] Hemoglobin (Bld) [Mass/Vol] 13.4 g/dL Normal 13.0-16.5 [facility] Comment on above: Order Comment: 111.2 Performed By: #### L 500.4050, L100.0100, L501.9060, L501.2300 #### [facility] [address] [place], [address] IG% 0.500 Normal 0.0-0.9 [facility] Comment on above: Order Comment: 111.2 Result Comment: IG% - Immature Granulocytes (promyelocytes, myelocytes and metamyelocytes) > 1% indicates that a LEFT SHIFT is Present. Performed By: #### L 500.4050, L100.0100, L501.9060, L501.2300 #### [facility] [address] [place], [address] Lymphocytes/100 WBC (Bld) 25.1 % Normal 19-41 [facility] Comment on above: Order Comment: 111.2 Performed By: #### L 500.4050, L100.0100, L501.9060, L501.2300 #### [facility] [address] [place], [address] MCH (RBC) [Entitic mass] 30.0 pg Normal 27.0-32.0 [facility] Comment on above: Order Comment: 111.2 Performed By: #### L 500.4050, L100.0100, L501.9060, L501.2300 #### [facility] [address] [place], [address] MCHC (RBC) [Mass/Vol] 33.1 g/dL Normal 32-[address] [facility] Comment on above: Order Comment: 111.2 Performed By: #### L 500.4050, L100.0100, L501.9060, L501.2300 #### [facility] [address] [place], [address] MCV (RBC) [Entitic vol] 90.8 fL Normal 80-94 [facility] Comment on above: Order Comment: 111.2 Performed By: #### L 500.4050, L100.0100, L501.9060, L501.2300 #### [facility] [address] [place], [address] Monocytes/100 WBC (Bld) 9.4 % Normal 0-10 [facility] Comment on above: Order Comment: 111.2 Performed By: #### L 500.4050, L100.0100, L501.9060, L501.2300 #### [facility] [address] [place], [address] Neutrophils/100 WBC (Bld) 58.6 % Normal 47-70 [facility] Comment on above: Order Comment: 111.2 Performed By: #### L 500.4050, L100.0100, L501.9060, L501.2300 #### [facility] [address] [place], [address] Nucleated RBC (Bld) [#/Vol] 0 10*3/uL Normal 0-5 [facility] Comment on above: Order Comment: 111.2 Performed By: #### L 500.4050, L100.0100, L501.9060, L501.2300 #### [facility] [address] [place], [address] Platelet mean volume (Bld) [Entitic vol] 9.5 fL Normal 6.2-12.0 [facility] Comment on above: Order Comment: 111.2 Performed By: #### L 500.4050, L100.0100, L501.9060, L501.2300 #### [facility] [address] [place], [address] Platelets (Bld) [#/Vol] 247 10*3/uL Normal 150-450 [facility] Comment on above: Order Comment: 111.2 Performed By: #### L 500.4050, L100.0100, L501.9060, L501.2300 #### [facility] [address] [place], [address] RBC (Bld) [#/Vol] 4.46 10*6/uL Low 4.6-6.2 [facility] Comment on above: Order Comment: 111.2 Performed By: #### L 500.4050, L100.0100, L501.9060, L501.2300 #### [facility] [address] [place], [address] RDW SD 41.9 fl Normal 35.1-43.9 [facility] Comment on above: Order Comment: 111.2 Performed By: #### L 500.4050, L100.0100, L501.9060, L501.2300 #### [facility] [address] [place], [address] WBC (Bld) [#/Vol] 9.6 10*3/uL Normal 4.4-11.0 [facility] Comment on above: Order Comment: 111.2 Performed By: #### L 500.4050, L100.0100, L501.9060, L501.2300 #### [facility] [address] [place], [address] Carbon dioxide measurementOr dered By: Adam Ferraro on 01-02-2025 CO2 [Moles/Vol] 25.0 mmol/L 21.0-32.0 [facility] Chloride measurementOrdered By: Adam Ferraro on 01-02-2025 Chloride [Moles/Vol] 109 mmol/L High 98-107 [facility] Comprehensive Metabolic Prof ilon 01-02-2025 Albumin [Mass/Vol] 3.1 g/dL Low 3.2-5.0 [facility] Comment on above: Order Comment: 111.2 Performed By: #### L 500.4050, L100.0100, L501.9060, L501.2300 #### [facility] [address] [place], [address] Albumin/Globulin [Mass ratio] 1.0 {ratio} Normal 0.9-2.4 [facility] Comment on above: Order Comment: 111.2 Performed By: #### L 500.4050, L100.0100, L501.9060, L501.2300 #### [facility] [address] [place], [address] ALK P 81 U/L Normal 45-117 [facility] Comment on above: Order Comment: 111.2 Performed By: #### L 500.4050, L100.0100, L501.9060, L501.2300 #### [facility] [address] [place], [address] ALT [Catalytic activity/Vol] 17 U/L Normal 16-61 [facility] Comment on above: Order Comment: 111.2 Performed By: #### L 500.4050, L100.0100, L501.9060, L501.2300 #### [facility] [address] [place], [address] AST [Catalytic activity/Vol] 12 U/L Low 15-37 [facility] Comment on above: Order Comment: 111.2 Performed By: #### L 500.4050, L100.0100, L501.9060, L501.2300 #### [facility] [address] [place], [address] Bilirubin [Mass/Vol] 0.30 mg/dL Normal 0.20-1.00 [facility] Comment on above: Order Comment: 111.2 Result Comment: For patients on eltrombopag therapy, use of Dimension [place] TBIL is not recommended. Performed By: #### L 500.4050, L100.0100, L501.9060, L501.2300 #### [facility] [address] [place], [address] BUN/CRE 12.6 RATIO Normal 10-20 [facility] Comment on above: Order Comment: 111.2 Performed By: #### L 500.4050, L100.0100, L501.9060, L501.2300 #### [facility] [address] [place], [address] CA,Total 9.4 mg/dL Normal 8.5-10.1 [facility] Comment on above: Order Comment: 111.2 Performed By: #### L 500.4050, L100.0100, L501.9060, L501.2300 #### [facility] [address] [place], [address] Chloride [Moles/Vol] 109 mmol/L High 98-107 [facility] Comment on above: Order Comment: 111.2 Performed By: #### L 500.4050, L100.0100, L501.9060, L501.2300 #### [facility] [address] [place], [address] CO2 [Moles/Vol] 25.0 mmol/L Normal 21.0-32.0 [facility] Comment on above: Order Comment: 111.2 Performed By: #### L 500.4050, L100.0100, L501.9060, L501.2300 #### [facility] [address] [place], [address] Creatinine [Mass/Vol] 2.14 mg/dL High 0.70-1.[address] [facility] Comment on above: Order Comment: 111.2 Result Comment: The validity of the calculated GFR GFRAA in patients over 70 years has not been determined. Clinical correlation is essential. Performed By: #### L 500.4050, L100.0100, L501.9060, L501.2300 #### [facility] [address] [place], [address] EST GFR - AA 41 mL/min Low >60 [facility] Comment on above: Order Comment: 111.2 Result Comment: Afri can [place] GFR Calc Performed By: #### L 500.4050, L100.0100, L501.9060, L501.2300 #### [facility] [address] [place], [address] GAP 7 Normal 5-15 [facility] Comment on above: Order Comment: 111.2 Performed By: #### L 500.4050, L100.0100, L501.9060, L501.2300 #### [facility] [address] [place], [address] GFR/1.73 sq M.predicted among non-blacks MDRD (S/P/Bld) [Vol rate/Area] 34 mL/min/{1.73_m2} Low >60 [facility] Comment on above: Order Comment: 111.2 Result Comment: Non- GFR Calc Performed By: #### L 500.4050, L100.0100, L501.9060, L501.2300 #### [facility] [address] [place], [address] Globulin (S) [Mass/Vol] 3.1 g/dL Normal 2.2-4.2 [facility] Comment on above: Order Comment: 111.2 Performed By: #### L 500.4050, L100.0100, L501.9060, L501.2300 #### [facility] [address] [place], [address] Glucose [Mass/Vol] 115 mg/dL High 74-106 [facility] Comment on above: Order Comment: 111.2 Result Comment: Fast ing Glucose result from 100 to 125 mg/dL suggests IMPAIRED HOMEOSTASIS per A.D.A. criteria. Performed By: #### L 500.4050, L100.0100, L501.9060, L501.2300 #### [facility] [address] [place], [address] Potassium [Moles/Vol] 4.1 mmol/L Normal 3.5-5.[address] [facility] Comment on above: Order Comment: 111.2 Performed By: #### L 500.4050, L100.0100, L501.9060, L501.2300 #### [facility] [address] [place], [address] Sodium [Moles/Vol] 141 mmol/L Normal 136-145 [facility] Comment on above: Order Comment: 111.2 Performed By: #### L 500.4050, L100.0100, L501.9060, L501.2300 #### [facility] [address] [place], [place], [address] T PROT 6.2 g/dL Low 6.4-8.2 [facility] Comment on above: Order Comment: 111.2 Performed By: #### L 500.4050, L100.0100, L501.9060, L501.2300 #### [facility] [address] [place], [address] Urea nitrogen [Mass/Vol] 27 mg/dL High 7-18 [facility] Comment on above: Order Comment: 111.2 Performed By: #### L 500.4050, L100.0100, L501.9060, L501.2300 #### [facility] [address] [place], [address] Eosinophil percentageOrdered By: Adam Ferraro on 01-02-2025 Eosinophils/100 WBC (Bld) 5.3 % High 0-5 [facility] Erythrocyte distribution wid th ratioOrdered By: Adam Ferraro on 01-02-2025 Erythrocyte distribution width (RBC) [Ratio] 12.9 % 11.6-14.6 [facility] Erythrocyte distribution wid th standard deviationOrdered By: Adam Ferraro on 01-02-2025 Erythrocyte distribution width (RBC) [Entitic vol] 41.9 fL 35.1-43.9 [facility] Erythrocyte distribution width (RBC) [Ratio] 41.9 fl 35.1-43.9 [facility] Estimated glomerular filtrat ion rate (GFR) AmericanOrdered By: Adam Ferraro on 01-02-2025 Estimated GFR (MDRD) Amer 41 mL/min Low >60 [facility] Comment on above: GFR Calc Glomerular filtration rate ( GFR) estimationOrdered By: Adam Ferraro on 01-02-2025 Estimated GFR (MDRD) Non-Af Amer 34 mL/min Low >60 [facility] Comment on above: Non- GFR Calc GFR/1.73 sq M.predicted among non-blacks MDRD (S/P/Bld) [Vol rate/Area] 34 mL/min/{1.73_m2} Low >60 [facility] Comment on above: Non- GFR Calc Glucose measurementOrdered B y: Adam Jasmine on 01-02-2025 Glucose [Mass/Vol] 115 mg/dL High 74-106 [facility] Comment on above: Fasting Glucose resu lt from 100 to 125 mg/dL suggests IMPAIRED HOMEOSTASIS per A.D.A. criteria. Hematocrit Auto (Bld) [Volum e fraction]Ordered By: Adam Ferraro on 01-02-2025 Hematocrit (Bld) [Volume fraction] 40.5 % 40-54 [facility] Hemoglobin measurementOrdere d By: Adam Ferraro on 01-02-2025 Hemoglobin (Bld) [Mass/Vol] 13.4 g/dL 13.0-16.5 [facility] Immature granulocytes/100 WB C Auto (Bld)Ordered By: Adam Ferraro on 01-02-2025 Immature granulocytes/100 WBC (Bld) 0.500 % 0.0-0.9 [facility] Comment on above: IG% - Immature Granu locytes (promyelocytes, myelocytes and metamyelocytes) > 1% indicates that a LEFT SHIFT is Present. Laboratory - Chemistry and C hemistry - challengeOrdered By: Adam Ferraro on 01-02-2025 AST [Catalytic activity/Vol] 12 U/L Low 15-37 [facility] Lithiumon 01-02-2025 LI 0.60 mmol/L Normal 0.60-1.20 [facility] Comment on above: Order Comment: 111.2 Performed By: #### L 100.0100, L501.9060, L502.0250, L500.2500 #### [facility] [address] [place], [address] [place] levelOrdered By: Benoit Ferraro on 01-02-2025 [place] Level 0.60 mmol/L 0.60-1.20 [facility] Lymphocytes Auto (Unsp spec) [#/Vol]Ordered By: Adam Ferraro on 01-02-2025 Lymphocytes (Bld) [#/Vol] 2.41 10*3/uL 0.83-4.51 [facility] Lymphocytes/100 WBC Auto (Un sp spec)Ordered By: Adam Ferraro on 01-02-2025 Lymphocytes/100 WBC (Bld) 25.1 % 19-41 [facility] MCV (mean corpuscular volume ) determinationOrdered By: Adam Ferraor on 01-02-2025 MCV (RBC) [Entitic vol] 90.8 fL 80-94 [facility] Mean corpuscular hemoglobin (MCH) determinationOrdered By: Adam Ferraro on 01-02-2025 MCH (RBC) [Entitic mass] 30.0 pg 27.0-32.0 [facility] Mean corpuscular hemoglobin concentration (MCHC) determinationOrdered By: Adam Ferraro on 01-02-2025 MCHC (RBC) [Mass/Vol] 33.1 g/dL 32-[address] [facility] Mean platelet volume determi nationOrdered By: Adam Ferraro on 01-02-2025 Platelet mean volume (Bld) [Entitic vol] 9.5 fL 6.2-12.0 [facility] Monocyte percentageOrdered B y: Adam Ferraro on 01-02-2025 Monocytes/100 WBC (Bld) 9.4 % 0-10 [facility] Neutrophil percentageOrdered By: Adam Ferraro on 01-02-2025 Neutrophils/100 WBC (Bld) 58.6 % 47-70 [facility] Nucleated red blood cell per centageOrdered By: Adam Ferraro on 01-02-2025 Nucleated RBC/100 WBC (Bld) [Ratio] 0 % 0-5 [facility] Phosphoruson 01-02-2025 Phosphate [Mass/Vol] 4.7 mg/dL Normal 2.5-4.9 [facility] Comment on above: Order Comment: 111.2 Performed By: #### L 100.0100, L501.9060, L502.0250, L500.2500 #### [facility] [address] [place], [address] Phosphorus measurementOrdere d By: Adam Ferraro on 01-02-2025 Phosphorus Level 4.7 mg/dL 2.5-4.9 [facility] Platelet countOrdered By: Sabino Ferraro on 01-02-2025 Platelets (Bld) [#/Vol] 247 10*3/uL 150-450 [facility] Potassium measurementOrdered By: Adam Ferraro on 01-02-2025 Potassium [Moles/Vol] 4.1 mmol/L 3.5-5.[address] [facility] RBC Auto (Bld) [#/Vol]Ordere d By: Adam Ferraro on 01-02-2025 RBC (Bld) [#/Vol] 4.46 10*6/uL Low 4.6-6.2 [facility] Serum anion gap measurementO rdered By: Adam Ferraro on 01-02-2025 Anion gap [Moles/Vol] 7 mmol/L 5-[address] [facility] Serum globulin measurementOr dered By: Adam Ferraro on 01-02-2025 Globulin (S) [Mass/Vol] 3.1 g/dL 2.2-4.2 [facility] Serum or plasma alanine sesay otransferase (ALT) measurementOrdered By: Adam Ferraro on 01-02-2025 ALT [Catalytic activity/Vol] 17 U/L 16-61 [facility] Serum or plasma albumin you urement (mass/volume)Ordered By: Adam Ferraro on 01-02-2025 Albumin [Mass/Vol] 3.1 g/dL Low 3.2-5.0 [facility] Serum or plasma alkaline hal sphatase measurementOrdered By: Adam Ferraro on 01-02-2025 ALP [Catalytic activity/Vol] 81 U/L 45-117 [facility] Serum or plasma calcium you urement (mass/volume)Ordered By: Adam Ferraro on 01-02-2025 Calcium [Mass/Vol] 9.4 mg/dL 8.5-10.1 [facility] Serum or plasma creatinine m easurement (mass/volume)Ordered By: Adam Ferraro on 01-02-2025 Creatinine [Mass/Vol] 2.14 mg/dL High 0.70-1.[address] [facility] Comment on above: The validity of the calculated GFR & GFRAA in patients over 70 years has not been determined. Clinical correlation is essential. Serum or plasma urea nitroge n measurement (mass/volume)Ordered By: Adam Ferraro on 01-02-2025 Urea nitrogen [Mass/Vol] 27 mg/dL High 7-18 [facility] Sodium levelOrdered By: Spike Ferraro on 01-02-2025 Sodium [Moles/Vol] 141 mmol/L 136-145 [facility] Total proteinOrdered By: Benoit Ferraro on 01-02-2025 Protein [Mass/Vol] 6.2 g/dL Low 6.4-8.2 [facility] White blood cell (WBC) count Ordered By: Adam Ferraro on 01-02-2025 WBC (Bld) [#/Vol] 9.6 10*3/uL 4.4-11.0 [facility] Albumin to globulin ratioOrd ered By: Adam Ferraro on 12-28-2024 Albumin/Globulin [Mass ratio] 0.9 {ratio} 0.9-2.4 [facility] Bilirubin, totalOrdered By: Adam Ferraro on 12-28-2024 Bilirubin [Mass/Vol] 0.30 mg/dL 0.20-1.00 [facility] Comment on above: For patients on eltr ombopag therapy, use of Dimension [place] TBIL is not recommended. Blood urea nitrogen (BUN)/cr eatinine ratioOrdered By: Adam Ferraro on 12-28-2024 Urea nitrogen/Creatinine [Mass ratio] 10.0 mg/mg 10-20 [facility] CBC-Complete Blood Cnt No Di ffon 12-28-2024 Erythrocyte distribution width (RBC) [Ratio] 13.1 % Normal 11.6-14.6 [facility] Comment on above: Order Comment: 111.2 Performed By: #### L 501.1400, L100.0500, L500.4050 #### [facility] [address] [place], [address] Hematocrit (Bld) [Volume fraction] 40.4 % Normal 40-54 [facility] Comment on above: Order Comment: 111.2 Performed By: #### L 501.1400, L100.0500, L500.4050 #### [facility] [address] [place], [address] Hemoglobin (Bld) [Mass/Vol] 13.2 g/dL Normal 13.0-16.5 [facility] Comment on above: Order Comment: 111.2 Performed By: #### L 501.1400, L100.0500, L500.4050 #### [facility] [address] [place], [address] MCH (RBC) [Entitic mass] 29.7 pg Normal 27.0-32.0 [facility] Comment on above: Order Comment: 111.2 Performed By: #### L 501.1400, L100.0500, L500.4050 #### [facility] [address] [place], [address] MCHC (RBC) [Mass/Vol] 32.7 g/dL Normal 32-[address] [facility] Comment on above: Order Comment: 111.2 Performed By: #### L 501.1400, L100.0500, L500.4050 #### [facility] [address] [place], [address] MCV (RBC) [Entitic vol] 91.0 fL Normal 80-94 [facility] Comment on above: Order Comment: 111.2 Performed By: #### L 501.1400, L100.0500, L500.4050 #### [facility] [address] [place], [address] Platelet mean volume (Bld) [Entitic vol] 9.3 fL Normal 6.2-12.0 [facility] Comment on above: Order Comment: 111.2 Performed By: #### L 501.1400, L100.0500, L500.4050 #### [facility] [address] [place], [address] Platelets (Bld) [#/Vol] 248 10*3/uL Normal 150-450 [facility] Comment on above: Order Comment: 111.2 Performed By: #### L 501.1400, L100.0500, L500.4050 #### [facility] [address] [place], [address] RBC (Bld) [#/Vol] 4.44 10*6/uL Low 4.6-6.2 [facility] Comment on above: Order Comment: 111.2 Performed By: #### L 501.1400, L100.0500, L500.4050 #### [facility] [address] [place], [address] RDW SD 42.4 fl Normal 35.1-43.9 [facility] Comment on above: Order Comment: 111.2 Performed By: #### L 501.1400, L100.0500, L500.4050 #### [facility] [address] [place], [address] WBC (Bld) [#/Vol] 10.5 10*3/uL Normal 4.4-11.0 [facility] Comment on above: Order Comment: 111.2 Performed By: #### L 501.1400, L100.0500, L500.4050 #### [facility] [address] [place], [address] Carbon dioxide measurementOr dered By: Adam Ferraro on 12-28-2024 CO2 [Moles/Vol] 25.0 mmol/L 21.0-32.0 [facility] Chloride measurementOrdered By: Adam Ferraro on 12-28-2024 Chloride [Moles/Vol] 110 mmol/L High 98-107 [facility] Comprehensive Metabolic Prof ilon 12-28-2024 Albumin [Mass/Vol] 3.0 g/dL Low 3.2-5.0 [facility] Comment on above: Order Comment: 111.2 Performed By: #### L 501.1400, L100.0500, L500.4050 #### [facility] [address] [place], [address] Albumin/Globulin [Mass ratio] 0.9 {ratio} Normal 0.9-2.4 [facility] Comment on above: Order Comment: 111.2 Performed By: #### L 501.1400, L100.0500, L500.4050 #### [facility] [address] [place], [address] ALK P 81 U/L Normal 45-117 [facility] Comment on above: Order Comment: 111.2 Performed By: #### L 501.1400, L100.0500, [id number] #### [facility] [address] [place], [address] ALT [Catalytic activity/Vol] 20 U/L Normal 16-61 [facility] Comment on above: Order Comment: 111.2 Performed By: #### L 501.1400, L100.0500, L500.4050 #### [facility] [address] [place], [address] AST [Catalytic activity/Vol] 11 U/L Low 15-37 [facility] Comment on above: Order Comment: 111.2 Performed By: #### L 501.1400, L100.0500, L500.4050 #### [facility] [address] [place], [address] Bilirubin [Mass/Vol] 0.30 mg/dL Normal 0.20-1.00 [facility] Comment on above: Order Comment: 111.2 Result Comment: For patients on eltrombopag therapy, use of Dimension [place] TBIL is not recommended. Performed By: #### L 501.1400, L100.0500, L500.4050 #### [facility] [address] [place], [address] BUN/CRE 10.0 RATIO Normal 10-20 [facility] Comment on above: Order Comment: 111.2 Performed By: #### L 501.1400, L100.0500, L500.4050 #### [facility] [address] [place], [address] CA,Total 9.3 mg/dL Normal 8.5-10.1 [facility] Comment on above: Order Comment: 111.2 Performed By: #### L 501.1400, L100.0500, L500.4050 #### [facility] [address] [place], [address] Chloride [Moles/Vol] 110 mmol/L High 98-107 [facility] Comment on above: Order Comment: 111.2 Performed By: #### L 501.1400, L100.0500, L500.4050 #### [facility] [address] [place], [address] CO2 [Moles/Vol] 25.0 mmol/L Normal 21.0-32.0 [facility] Comment on above: Order Comment: 111.2 Performed By: #### L 501.1400, L100.0500, L500.4050 #### [facility] [address] [place], [address] Creatinine [Mass/Vol] 2.09 mg/dL High 0.70-1.[address] [facility] Comment on above: Order Comment: 111.2 Result Comment: The validity of the calculated GFR GFRAA in patients over 70 years has not been determined. Clinical correlation is essential. Performed By: #### L 501.1400, L100.0500, L500.4050 #### [facility] [address] [place], [address] EST GFR - AA 42 mL/min Low >60 [facility] Comment on above: Order Comment: 111.2 Result Comment: Afri can Eritrean GFR Calc Performed By: #### L 501.1400, L100.0500, L500.4050 #### [facility] [address] [place], [address] GAP 6 Normal 5-15 [facility] Comment on above: Order Comment: 111.2 Performed By: #### L 501.1400, L100.0500, L500.4050 #### [facility] [address] [place], [address] GFR/1.73 sq M.predicted among non-blacks MDRD (S/P/Bld) [Vol rate/Area] 34 mL/min/{1.73_m2} Low >60 [facility] Comment on above: Order Comment: 111.2 Result Comment: Non- GFR Calc Performed By: #### L 501.1400, L100.0500, L500.4050 #### [facility] [address] [place], [address] Globulin (S) [Mass/Vol] 3.4 g/dL Normal 2.2-4.2 [facility] Comment on above: Order Comment: 111.2 Performed By: #### L 501.1400, L100.0500, L500.4050 #### [facility] [address] [place], [address] Glucose [Mass/Vol] 119 mg/dL High 74-106 [facility] Comment on above: Order Comment: 111.2 Result Comment: Fast ing Glucose result from 100 to 125 mg/dL suggests IMPAIRED HOMEOSTASIS per A.D.A. criteria. Performed By: #### L 501.1400, L100.0500, L500.4050 #### [facility] [address] [place], [address] Potassium [Moles/Vol] 4.3 mmol/L Normal 3.5-5.[address] [facility] Comment on above: Order Comment: 111.2 Performed By: #### L 501.1400, L100.0500, L500.4050 #### [facility] [address] [place], [address] Sodium [Moles/Vol] 141 mmol/L Normal 136-145 [facility] Comment on above: Order Comment: 111.2 Performed By: #### L 501.1400, L100.0500, L500.4050 #### [facility] [address] [place], [address] T PROT 6.4 g/dL Normal 6.4-8.2 [facility] Comment on above: Order Comment: 111.2 Performed By: #### L 501.1400, L100.0500, L500.4050 #### [facility] [address] [place], [address] Urea nitrogen [Mass/Vol] 21 mg/dL High 7-18 [facility] Comment on above: Order Comment: 111.2 Performed By: #### L 501.1400, L100.0500, L500.4050 #### [facility] [address] [place], [address] Erythrocyte distribution wid th ratioOrdered By: Adam Ferraro on 12-28-2024 Erythrocyte distribution width (RBC) [Ratio] 13.1 % 11.6-14.6 [facility] Erythrocyte distribution wid th standard deviationOrdered By: Adam Ferraro on 12-28-2024 Erythrocyte distribution width (RBC) [Entitic vol] 42.4 fL 35.1-43.9 [facility] Erythrocyte distribution width (RBC) [Ratio] 42.4 fl 35.1-43.9 [facility] Estimated glomerular filtrat ion rate (GFR) AmericanOrdered By: Adam Ferraro on 12-28-2024 Estimated GFR (MDRD) Amer 42 mL/min Low >60 [facility] Comment on above: GFR Calc Glomerular filtration rate ( GFR) estimationOrdered By: Adam Ferraro on 12-28-2024 Estimated GFR (MDRD) Non-Af Amer 34 mL/min Low >60 [facility] Comment on above: Non- GFR Calc GFR/1.73 sq M.predicted among non-blacks MDRD (S/P/Bld) [Vol rate/Area] 34 mL/min/{1.73_m2} Low >60 [facility] Comment on above: Non- GFR Calc Glucose measurementOrdered B y: Adam Ferraro on 12-28-2024 Glucose [Mass/Vol] 119 mg/dL High 74-106 [facility] Comment on above: Fasting Glucose resu lt from 100 to 125 mg/dL suggests IMPAIRED HOMEOSTASIS per A.D.A. criteria. Hematocrit Auto (Bld) [Volum e fraction]Ordered By: Adam Ferraro on 12-28-2024 Hematocrit (Bld) [Volume fraction] 40.4 % 40-54 [facility] Hemoglobin measurementOrdere d By: Adam Ferraro on 12-28-2024 Hemoglobin (Bld) [Mass/Vol] 13.2 g/dL 13.0-16.5 [facility] - Chemistry and C hemistry - challengeOrdered By: Adam Ferraro on 12-28-2024 AST [Catalytic activity/Vol] 11 U/L Low 15-37 [facility] MCV (mean corpuscular volume ) determinationOrdered By: Adam Ferraro on 12-28-2024 MCV (RBC) [Entitic vol] 91.0 fL 80-94 [facility] Mean corpuscular hemoglobin (MCH) determinationOrdered By: Adam Ferraro on 12-28-2024 MCH (RBC) [Entitic mass] 29.7 pg 27.0-32.0 [facility] Mean corpuscular hemoglobin concentration (MCHC) determinationOrdered By: Adam Ferraro on 12-28-2024 MCHC (RBC) [Mass/Vol] 32.7 g/dL 32-[address] [facility] Mean platelet volume determi nationOrdered By: Adam Ferraro on 12-28-2024 Platelet mean volume (Bld) [Entitic vol] 9.3 fL 6.2-12.0 [facility] Platelet countOrdered By: Sabino Ferraro on 12-28-2024 Platelets (Bld) [#/Vol] 248 10*3/uL 150-450 [facility] Potassium measurementOrdered By: Adam Ferraro on 12-28-2024 Potassium [Moles/Vol] 4.3 mmol/L 3.5-5.[address] [facility] RBC Auto (Bld) [#/Vol]Ordere d By: Adam Ferraro on 12-28-2024 RBC (Bld) [#/Vol] 4.44 10*6/uL Low 4.6-6.2 [facility] Serum anion gap measurementO rdered By: Adam Ferraro on 12-28-2024 Anion gap [Moles/Vol] 6 mmol/L 5-[address] [facility] Serum globulin measurementOr dered By: Adam Ferraro on 12-28-2024 Globulin (S) [Mass/Vol] 3.4 g/dL 2.2-4.2 [facility] Serum or plasma alanine sesay otransferase (ALT) measurementOrdered By: Adam Ferraro on 12-28-2024 ALT [Catalytic activity/Vol] 20 U/L 16-61 [facility] Serum or plasma albumin you urement (mass/volume)Ordered By: Adam Ferraro on 12-28-2024 Albumin [Mass/Vol] 3.0 g/dL Low 3.2-5.0 [facility] Serum or plasma alkaline hal sphatase measurementOrdered By: Adam Ferraro on 12-28-2024 ALP [Catalytic activity/Vol] 81 U/L 45-117 [facility] Serum or plasma calcium you urement (mass/volume)Ordered By: Adam Ferraro on 12-28-2024 Calcium [Mass/Vol] 9.3 mg/dL 8.5-10.1 [facility] Serum or plasma creatinine m easurement (mass/volume)Ordered By: Adam Ferraro on 12-28-2024 Creatinine [Mass/Vol] 2.09 mg/dL High 0.70-1.[address] [facility] Comment on above: The validity of the calculated GFR & GFRAA in patients over 70 years has not been determined. Clinical correlation is essential. Serum or plasma urea nitroge n measurement (mass/volume)Ordered By: Adam Ferraro on 12-28-2024 Urea nitrogen [Mass/Vol] 21 mg/dL High 7-18 [facility] Serum or plasma uric acid me asurement (mass/volume)Ordered By: Adam Ferraro on 12-28-2024 Urate [Mass/Vol] 5.8 mg/dL 3.5-7.2 [facility] Comment on above: The drugs N-Acetylcy steine and Metamizole may falsely depress this assay. Sodium levelOrdered By: Spike Ferraro on 12-28-2024 Sodium [Moles/Vol] 141 mmol/L 136-145 [facility] Total proteinOrdered By: Benoit Ferraro on 12-28-2024 Protein [Mass/Vol] 6.4 g/dL 6.4-8.2 [facility] Uric Acidon 12-28-2024 URIC 5.8 mg/dL Normal 3.5-7.2 [facility] Comment on above: Order Comment: 111.2 Result Comment: The drugs N-Acetylcysteine and Metamizole may falsely depress this assay. Performed By: #### L 501.1400, L100.0500, L500.4050 #### [facility] [address] [place], [place], [address] White blood cell (WBC) count Ordered By: Adam Ferraro on 12-28-2024 WBC (Bld) [#/Vol] 10.5 10*3/uL 4.4-11.0 [facility] Serum or plasma uric acid me asurement (mass/volume)Ordered By: Adam Ferraro on 11-27-2024 Urate [Mass/Vol] 5.8 mg/dL 3.5-7.2 [facility] Comment on above: The drugs N-Acetylcy steine and Metamizole may falsely depress this assay. Uric Acidon 11-27-2024 URIC 5.8 mg/dL Normal 3.5-7.2 [facility] Comment on above: Order Comment: 111.2 [id number] Result Comment: The drugs N-Acetylcysteine and Metamizole may falsely depress this assay. Performed By: #### L 100.0100, L501.9060, L502.0250, L500.2500 #### [facility] [address] [place], [place], [address] Absolute neutrophil countOrd ered By: Adam Ferraro on 11-15-2024 Neutrophils (Bld) [#/Vol] 6.8 10*3/uL 2.0-7.7 [facility] Basic Metabolic Profile (BMP )on 11-15-2024 BUN/CRE 10.0 RATIO Normal 10-20 [facility] Comment on above: Order Comment: 111.2 Performed By: #### L 100.0100, L501.9060, L502.0250, L500.2500 #### [facility] [address] [place], [address] CA,Total 9.6 mg/dL Normal 8.5-10.1 [facility] Comment on above: Order Comment: 111.2 Performed By: #### L 100.0100, L501.9060, L502.0250, L500.2500 #### [facility] [address] [place], [address] Chloride [Moles/Vol] 108 mmol/L High 98-107 [facility] Comment on above: Order Comment: 111.2 Performed By: #### L 100.0100, L501.9060, L502.0250, L500.2500 #### [facility] [address] [place], [address] CO2 [Moles/Vol] 23.0 mmol/L Normal 21.0-32.0 [facility] Comment on above: Order Comment: 111.2 Performed By: #### L 100.0100, L501.9060, L502.0250, L500.2500 #### [facility] [address] [place], [address] Creatinine [Mass/Vol] 2.30 mg/dL High 0.70-1.[address] [facility] Comment on above: Order Comment: 111.2 Result Comment: The validity of the calculated GFR GFRAA in patients over 70 years has not been determined. Clinical correlation is essential. Performed By: #### L 100.0100, L501.9060, L502.0250, L500.2500 #### [facility] [address] [place], [address] EST GFR - AA 37 mL/min Low >60 [facility] Comment on above: Order Comment: 111.2 Result Comment: Afri can [place]rit[place]an GFR Calc Performed By: #### L 100.0100, L501.9060, L502.0250, L500.2500 #### [facility] [address] [place], [address] GAP 8 Normal 5-15 [facility] Comment on above: Order Comment: 111.2 Performed By: #### L 100.0100, L501.9060, L502.0250, L500.2500 #### [facility] [address] [place], [address] GFR/1.73 sq M.predicted among non-blacks MDRD (S/P/Bld) [Vol rate/Area] 31 mL/min/{1.73_m2} Low >60 [facility] Comment on above: Order Comment: 111.2 Result Comment: Non- GFR Calc Performed By: #### L 100.0100, L501.9060, L502.0250, L500.2500 #### [facility] [address] [place], [address] Glucose [Mass/Vol] 114 mg/dL High 74-106 [facility] Comment on above: Order Comment: 111.2 Result Comment: Fast ing Glucose result from 100 to 125 mg/dL suggests IMPAIRED HOMEOSTASIS per A.D.A. criteria. Performed By: #### L 100.0100, L501.9060, L502.0250, L500.2500 #### [facility] [address] [place], [address] Potassium [Moles/Vol] 4.2 mmol/L Normal 3.5-5.[address] [facility] Comment on above: Order Comment: 111.2 Performed By: #### L 100.0100, L501.9060, L502.0250, L500.2500 #### [facility] [address] [place], [address] Sodium [Moles/Vol] 140 mmol/L Normal 136-145 [facility] Comment on above: Order Comment: 111.2 Performed By: #### L 100.0100, L501.9060, L502.0250, L500.2500 #### [facility] [address] [place], [address] Urea nitrogen [Mass/Vol] 23 mg/dL High 7-18 [facility] Comment on above: Order Comment: 111.2 Performed By: #### L 100.0100, L501.9060, L502.0250, L500.2500 #### [facility] [address] [place], [address] Basophil percentageOrdered B y: Adam Ferraro on 11-15-2024 Basophils/100 WBC (Bld) 1.2 % High 0-1 [facility] Blood urea nitrogen (BUN)/cr eatinine ratioOrdered By: Adam Jasmine on 11-15-2024 Urea nitrogen/Creatinine [Mass ratio] 10.0 mg/mg 10-20 [facility] CBC W/Diff, Automatedon Absolute Lymph 2.67 X10 3/uL Normal 0.83-4.51 [facility] Comment on above: Order Comment: 111.2 Performed By: #### L 100.0100, L501.9060, L502.0250, L500.2500 #### [facility] [address] [place], [address] Absolute Neut 6.8 X10 3/uL Normal 2.0-7.7 [facility] Comment on above: Order Comment: 111.2 Performed By: #### L 100.0100, L501.9060, L502.0250, L500.2500 #### [facility] [address] [place], [address] Basophils/100 WBC (Bld) 1.2 % High 0-1 [facility] Comment on above: Order Comment: 111.2 Performed By: #### L 100.0100, L501.9060, L502.0250, L500.2500 #### [facility] [address] [place], [address] Eosinophils/100 WBC (Bld) 4.6 % Normal 0-5 [facility] Comment on above: Order Comment: 111.2 Performed By: #### L 100.0100, L501.9060, L502.0250, L500.2500 #### [facility] [address] [place], [address] Erythrocyte distribution width (RBC) [Ratio] 12.9 % Normal 11.6-14.6 [facility] Comment on above: Order Comment: 111.2 Performed By: #### L 100.0100, L501.9060, L502.0250, L500.2500 #### [facility] [address] [place], [address] Hematocrit (Bld) [Volume fraction] 41.5 % Normal 40-54 [facility] Comment on above: Order Comment: 111.2 Performed By: #### L 100.0100, L501.9060, L502.0250, L500.2500 #### [facility] [address] [place], [address] Hemoglobin (Bld) [Mass/Vol] 13.6 g/dL Normal 13.0-16.5 [facility] Comment on above: Order Comment: 111.2 Performed By: #### L 100.0100, L501.9060, L502.0250, L500.2500 #### [facility] [address] [place], [address] IG% 0.500 Normal 0.0-0.9 [facility] Comment on above: Order Comment: 111.2 Result Comment: IG% - Immature Granulocytes (promyelocytes, myelocytes and metamyelocytes) > 1% indicates that a LEFT SHIFT is Present. Performed By: #### L 100.0100, L501.9060, L502.0250, L500.2500 #### [facility] [address] [place], [address] Lymphocytes/100 WBC (Bld) 23.8 % Normal 19-41 [facility] Comment on above: Order Comment: 111.2 Performed By: #### L 100.0100, L501.9060, L502.0250, L500.2500 #### [facility] [address] [place], [address] MCH (RBC) [Entitic mass] 29.9 pg Normal 27.0-32.0 [facility] Comment on above: Order Comment: 111.2 Performed By: #### L 100.0100, L501.9060, L502.0250, L500.2500 #### [facility] [address] [place], [address] MCHC (RBC) [Mass/Vol] 32.8 g/dL Normal 32-[address] [facility] Comment on above: Order Comment: 111.2 Performed By: #### L 100.0100, L501.9060, L502.0250, L500.2500 #### [facility] [address] [place], [address] MCV (RBC) [Entitic vol] 91.2 fL Normal 80-94 [facility] Comment on above: Order Comment: 111.2 Performed By: #### L 100.0100, L501.9060, L502.0250, L500.2500 #### [facility] [address] [place], [address] Monocytes/100 WBC (Bld) 9.8 % Normal 0-10 [facility] Comment on above: Order Comment: 111.2 Performed By: #### L 100.0100, L501.9060, L502.0250, L500.2500 #### [facility] [address] [place], [address] Neutrophils/100 WBC (Bld) 60.1 % Normal 47-70 [facility] Comment on above: Order Comment: 111.2 Performed By: #### L 100.0100, L501.9060, L502.0250, L500.2500 #### [facility] [address] [place], [address] Nucleated RBC (Bld) [#/Vol] 0 10*3/uL Normal 0-5 [facility] Comment on above: Order Comment: 111.2 Performed By: #### L 100.0100, L501.9060, L502.0250, L500.2500 #### [facility] [address] [place], [address] Platelet mean volume (Bld) [Entitic vol] 9.5 fL Normal 6.2-12.0 [facility] Comment on above: Order Comment: 111.2 Performed By: #### L 100.0100, L501.9060, L502.0250, L500.2500 #### [facility] [address] [place], [address] Platelets (Bld) [#/Vol] 257 10*3/uL Normal 150-450 [facility] Comment on above: Order Comment: 111.2 Performed By: #### L 100.0100, L501.9060, L502.0250, L500.2500 #### [facility] [address] [place], [address] RBC (Bld) [#/Vol] 4.55 10*6/uL Low 4.6-6.2 [facility] Comment on above: Order Comment: 111.2 Performed By: #### L 100.0100, L501.9060, L502.0250, L500.2500 #### [facility] [address] [place], [address] RDW SD 42.9 fl Normal 35.1-43.9 [facility] Comment on above: Order Comment: 111.2 Performed By: #### L 100.0100, L501.9060, L502.0250, L500.2500 #### [facility] [address] [place], [address] WBC (Bld) [#/Vol] 11.2 10*3/uL High 4.4-11.0 [facility] Comment on above: Order Comment: 111.2 Performed By: #### L 100.0100, L501.9060, L502.0250, L500.2500 #### [facility] [address] [place], [address] Carbon dioxide measurementOr dered By: Adam Ferraro on 11-15-2024 CO2 [Moles/Vol] 23.0 mmol/L 21.0-32.0 [facility] Chloride measurementOrdered By: Adam Ferraro on 11-15-2024 Chloride [Moles/Vol] 108 mmol/L High 98-107 [facility] Eosinophil percentageOrdered By: Adam Ferraro on 11-15-2024 Eosinophils/100 WBC (Bld) 4.6 % 0-5 [facility] Erythrocyte distribution wid th ratioOrdered By: Adam Ferraro on 11-15-2024 Erythrocyte distribution width (RBC) [Ratio] 12.9 % 11.6-14.6 [facility] Erythrocyte distribution wid th standard deviationOrdered By: Adam Ferraro on 11-15-2024 Erythrocyte distribution width (RBC) [Entitic vol] 42.9 fL 35.1-43.9 [facility] Estimated glomerular filtrat ion rate (GFR) AmericanOrdered By: Adam Ferraro on 11-15-2024 Estimated GFR (MDRD) Amer 37 mL/min Low >60 [facility] Comment on above: GFR Calc Glomerular filtration rate ( GFR) estimationOrdered By: Adam Ferraro on 11-15-2024 Estimated GFR (MDRD) Non-Af Amer 31 mL/min Low >60 [facility] Comment on above: Non- GFR Calc Glucose measurementOrdered B y: Adam Ferraro on 11-15-2024 Glucose [Mass/Vol] 114 mg/dL High 74-106 [facility] Comment on above: Fasting Glucose resu lt from 100 to 125 mg/dL suggests IMPAIRED HOMEOSTASIS per A.D.A. criteria. Hematocrit Auto (Bld) [Volum e fraction]Ordered By: Adam Ferraro on 11-15-2024 Hematocrit (Bld) [Volume fraction] 41.5 % 40-54 [facility] Hemoglobin measurementOrdere d By: Adam Ferraro on 11-15-2024 Hemoglobin (Bld) [Mass/Vol] 13.6 g/dL 13.0-16.5 [facility] Immature granulocytes/100 WB C Auto (Bld)Ordered By: Adam Ferraro on 11-15-2024 Immature granulocytes/100 WBC (Bld) 0.500 % 0.0-0.9 [facility] Comment on above: IG% - Immature Granu locytes (promyelocytes, myelocytes and metamyelocytes) > 1% indicates that a LEFT SHIFT is Present. Lithiumon 11-15-2024 LI 0.60 mmol/L Normal 0.60-1.20 [facility] Comment on above: Order Comment: 111.2 [id number] Performed By: #### L 100.0100, L501.9060, L502.0250, L500.2500 #### [facility] [address] [place] [address], [address] [place] levelOrdered By: Benoit Ferraro on 11-15-2024 [place] Level 0.60 mmol/L 0.60-1.20 [facility] Lymphocytes Auto (Unsp spec) [#/Vol]Ordered By: Adam Ferraro on 11-15-2024 Lymphocytes (Bld) [#/Vol] 2.67 10*3/uL 0.83-4.51 [facility] Lymphocytes/100 WBC Auto (Un sp spec)Ordered By: Adam Ferraro on 11-15-2024 Lymphocytes/100 WBC (Bld) 23.8 % 19-41 [facility] MCV (mean corpuscular volume ) determinationOrdered By: Adam Ferraro on 11-15-2024 MCV (RBC) [Entitic vol] 91.2 fL 80-94 [facility] Mean corpuscular hemoglobin (MCH) determinationOrdered By: Adam Ferraro on 11-15-2024 MCH (RBC) [Entitic mass] 29.9 pg 27.0-32.0 [facility] Mean corpuscular hemoglobin concentration (MCHC) determinationOrdered By: Adam Ferraro on 11-15-2024 MCHC (RBC) [Mass/Vol] 32.8 g/dL 32-[address] [facility] Mean platelet volume determi nationOrdered By: Adam Ferraro on 11-15-2024 Platelet mean volume (Bld) [Entitic vol] 9.5 fL 6.2-12.0 [facility] Microalb:Creat Ratio,Random URon 11-15-2024 Creatinine [Mass/Vol] 50.60 mg/dL Normal NO RAN GE EST. [facility] Comment on above: Performed By: #### L 100.0100, L501.9060, L502.0250, L500.2500 #### [facility] [address] [place], [place], [id number] MALB:CRE TNP Normal <30 mg/g CRE [facility] Comment on above: Performed By: #### L 100.0100, L501.9060, L502.0250, L500.2500 #### [facility] [address] [place], [place], [id number] MICROALBUMIN,UR < 5.0 Normal NO RANGE EST. [facility] Comment on above: Performed By: #### L 100.0100, L501.9060, L502.0250, L500.2500 #### [facility] [address] [place], [place], [address] Monocyte percentageOrdered B y: Adam Ferraro on 11-15-2024 Monocytes/100 WBC (Bld) 9.8 % 0-10 [facility] Neutrophil percentageOrdered By: Adam Ferraro on 11-15-2024 Neutrophils/100 WBC (Bld) 60.1 % 47-70 [facility] Nucleated red blood cell per centageOrdered By: Adam Ferraro on 11-15-2024 Nucleated RBC/100 WBC (Bld) [Ratio] 0 % 0-5 [facility] Platelet countOrdered By: Sabino Ferraro on 11-15-2024 Platelets (Bld) [#/Vol] 257 10*3/uL 150-450 [facility] Potassium measurementOrdered By: Adam Ferraro on 11-15-2024 Potassium [Moles/Vol] 4.2 mmol/L 3.5-5.[address] [facility] RBC Auto (Bld) [#/Vol]Ordere d By: Adam Ferraro on 11-15-2024 RBC (Bld) [#/Vol] 4.55 10*6/uL Low 4.6-6.2 [facility] Random urine microalbumin me asurementOrdered By: Adam Ferraro on 11-15-2024 Urine Random Microalbumin < 5.0 mg/L NO RANGE EST. [facility] Serum anion gap measurementO rdered By: Adam Ferraro on 11-15-2024 Anion gap [Moles/Vol] 8 mmol/L 5-[address] [facility] Serum or plasma calcium you urement (mass/volume)Ordered By: Adam Ferraro on 11-15-2024 Calcium [Mass/Vol] 9.6 mg/dL 8.5-10.1 [facility] Serum or plasma creatinine m easurement (mass/volume)Ordered By: Adam Ferraro on 11-15-2024 Creatinine [Mass/Vol] 2.30 mg/dL High 0.70-1.[address] [facility] Comment on above: The validity of the calculated GFR & GFRAA in patients over 70 years has not been determined. Clinical correlation is essential. Serum or plasma urea nitroge n measurement (mass/volume)Ordered By: Adam Ferraro on 11-15-2024 Urea nitrogen [Mass/Vol] 23 mg/dL High 7-18 [facility] Sodium levelOrdered By: Spike Ferraro on 11-15-2024 Sodium [Moles/Vol] 140 mmol/L 136-145 [facility] Urine albumin/creatinine rat io for detection of microalbuminuriaOrdered By: Adam Ferraro on 11-15-2024 Urine Microalbumin/Creatinine Ratio TNP [facility] Comment on above: Test not performed Urine creatinine measurement (mass/volume)Ordered By: Adam Ferraro on 11-15-2024 Creatinine (U) [Mass/Vol] 50.60 mg/dL NO RANGE EST. [facility] White blood cell (WBC) count Ordered By: Adam Ferraro on 11-15-2024 WBC (Bld) [#/Vol] 11.2 10*3/uL High 4.4-11.0 [facility] Serum or plasma uric acid me asurement (mass/volume)Ordered By: Adam Ferraro on 09-27-2024 Urate [Mass/Vol] 5.4 mg/dL 3.5-7.2 [facility] Comment on above: The drugs N-Acetylcy steine and Metamizole may falsely depress this assay. Uric Acidon 09-27-2024 URIC 5.4 mg/dL Normal 3.5-7.2 [facility] Comment on above: Order Comment: 111.2 Result Comment: The drugs N-Acetylcysteine and Metamizole may falsely depress this assay. Performed By: #### L 501.1400 #### [facility] 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 on anticoagulants, 2016 Erosive [...] pulm involvement, high dose predinsone and rituximab [id number], started Aug 16, 2016; 07/30. flared spring 2017, induced with pred and rituximab PAST SURGICAL HISTORY Procedure Laterality Date CHOLECYSTECTOMY 2013 [facility] COLONOSCOPY FLX DX W/COLLJ SPEC WHEN [...] (GLUCOPHAGE) 1,000 (more content not included)... Normal [facility] Protein+Creatinine Ratio,Uri neon 09-13-2024 PROT:CRE RATIO 97 mg/g CRE Normal 0-200 [facility] Comment on above: Performed By: #### L 501.1400, L100.0500, L500.4050 #### [facility] [address] [place], [address] Protein (U) [Mass/Vol] 11.9 mg/dL High <11.9 [facility] Comment on above: Performed By: #### L 501.1400, L100.0500, L500.4050 #### [facility] [address] [place], [address] UR CREAT 123.00 mg/dL Normal NO RANGE EST. [facility] Comment on above: Performed By: #### L 501.1400, L100.0500, L500.4050 #### [facility] [address] [place], [address] CBC W/Diff, Automatedon 10-3 0-4 Absolute Lymph 2.84 X10 3/uL Normal 0.83-4.51 [facility] Comment on above: Order Comment: 111.2 20241114 Performed By: #### L 100.0100, L501.9060, L502.0250, L500.2500 #### [facility] [address] [place], [address] Absolute Neut 5.3 X10 3/uL Normal 2.0-7.7 [facility] Comment on above: Order Comment: 111.2 [id number] Performed By: #### L 100.0100, L501.9060, L502.0250, L500.2500 #### [facility] [address] [place], [address] Basophils/100 WBC (Bld) 1.0 % Normal 0-1 [facility] Comment on above: Order Comment: 111.2 [id number] 2200 Performed By: #### L 100.0100, L501.9060, L502.0250, L500.2500 #### [facility] [address] [place], [address] Eosinophils/100 WBC (Bld) 4.0 % Normal 0-5 [facility] Comment on above: Order Comment: 111.2 20241114 Performed By: #### L 100.0100, L501.9060, L502.0250, L500.2500 #### [facility] [address] [place], [address] Erythrocyte distribution width (RBC) [Ratio] 13.2 % Normal 11.6-14.6 [facility] Comment on above: Order Comment: 111.2 20241114 Performed By: #### L 100.0100, L501.9060, L502.0250, L500.2500 #### [facility] [address] [place], [address] Hematocrit (Bld) [Volume fraction] 39.6 % Low 40-54 [facility] Comment on above: Order Comment: 111.20241114 Performed By: #### L 100.0100, L501.9060, L502.0250, L500.2500 #### [facility] [address] [place], [address] Hemoglobin (Bld) [Mass/Vol] 13.0 g/dL Normal 13.0-16.5 [facility] Comment on above: Order Comment: 111.20241114 Performed By: #### L 100.0100, L501.9060, L502.0250, L500.2500 #### [facility] [address] [place], [address] IG% 0.400 Normal 0.0-0.9 [facility] Comment on above: Order Comment: 111.2 20241114 Result Comment: IG% - Immature Granulocytes (promyelocytes, myelocytes and metamyelocytes) > 1% indicates that a LEFT SHIFT is Present. Performed By: #### L 100.0100, L501.9060, L502.0250, L500.2500 #### [facility] [address] [place], [address] Lymphocytes/100 WBC (Bld) 29.3 % Normal 19-41 [facility] Comment on above: Order Comment: 111.2 [id number] 2200 Performed By: #### L 100.0100, L501.9060, L502.0250, L500.2500 #### [facility] [address] [place], [address] MCH (RBC) [Entitic mass] 29.8 pg Normal 27.0-32.0 [facility] Comment on above: Order Comment: 111.2 [id number] 2200 Performed By: #### L 100.0100, L501.9060, L502.0250, L500.2500 #### [facility] [address] [place], [address] MCHC (RBC) [Mass/Vol] 32.8 g/dL Normal 32-[address] [facility] Comment on above: Order Comment: 111.2 [id number] Performed By: #### L 100.0100, L501.9060, L502.0250, L500.2500 #### [facility] [address] [place], [address] MCV (RBC) [Entitic vol] 90.8 fL Normal 80-94 [facility] Comment on above: Order Comment: 111.2 [id number] Performed By: #### L 100.0100, L501.9060, L502.0250, L500.2500 #### [facility] [address] [place], [address] Monocytes/100 WBC (Bld) 10.1 % High 0-10 [facility] Comment on above: Order Comment: 111.2 [id number] 2200 Performed By: #### L 100.0100, L501.9060, L502.0250, L500.2500 #### [facility] [address] [place], [address] Neutrophils/100 WBC (Bld) 55.2 % Normal 47-70 [facility] Comment on above: Order Comment: 111.2 [id number] 2200 Performed By: #### L 100.0100, L501.9060, L502.0250, L500.2500 #### [facility] [address] [place], [address] Nucleated RBC (Bld) [#/Vol] 0 10*3/uL Normal 0-5 [facility] Comment on above: Order Comment: 111.2 [id number] 2200 Performed By: #### L 100.0100, L501.9060, L502.0250, L500.2500 #### [facility] [address] [place], [address] Platelet mean volume (Bld) [Entitic vol] 9.7 fL Normal 6.2-12.0 [facility] Comment on above: Order Comment: 111.2 [id number] Performed By: #### L 100.0100, L501.9060, L502.0250, L500.2500 #### [facility] [address] [place], [address] Platelets (Bld) [#/Vol] 243 10*3/uL Normal 150-450 [facility] Comment on above: Order Comment: 111.2 [id number] Performed By: #### L 100.0100, L501.9060, L502.0250, L500.2500 #### [facility] [address] [place], [address] RBC (Bld) [#/Vol] 4.36 10*6/uL Low 4.6-6.2 [facility] Comment on above: Order Comment: 111.2 [id number] 2200 Performed By: #### L 100.0100, L501.9060, L502.0250, L500.2500 #### [facility] [address] [place], [address] RDW SD 43.3 fl Normal 35.1-43.9 [facility] Comment on above: Order Comment: 111.2 [id number] 2200 Performed By: #### L 100.0100, L501.9060, L502.0250, L500.2500 #### [facility] [address] [place], [address] WBC (Bld) [#/Vol] 9.7 10*3/uL Normal 4.4-11.0 [facility] Comment on above: Order Comment: 111.2 [id number] 2200 Performed By: #### L 100.0100, L501.9060, L502.0250, L500.2500 #### [facility] [address] [place], [address] Comprehensive Metabolic Prof ilon 09-12-2024 Albumin [Mass/Vol] 3.0 g/dL Low 3.2-5.0 [facility] Comment on above: Order Comment: 111.2 [id number] Performed By: #### L 100.0100, L501.9060, L502.0250, L500.2500 #### [facility] [address] [place], [address] Albumin/Globulin [Mass ratio] 1.0 {ratio} Normal 0.9-2.4 [facility] Comment on above: Order Comment: 111.2 [id number] Performed By: #### L 100.0100, L501.9060, L502.0250, L500.2500 #### [facility] [address] [place], [address] ALK P 87 U/L Normal 45-117 [facility] Comment on above: Order Comment: 111.2 [id number] 2200 Performed By: #### L 100.0100, L501.9060, L502.0250, L500.2500 #### [facility] [address] [place], [address] ALT [Catalytic activity/Vol] 19 U/L Normal 16-61 [facility] Comment on above: Order Comment: 111.2 20241114 Performed By: #### L 100.0100, L501.9060, L502.0250, L500.2500 #### [facility] [address] [place], [address] AST [Catalytic activity/Vol] 8 U/L Low 15-37 [facility] Comment on above: Order Comment: 111.2 [id number] Performed By: #### L 100.0100, L501.9060, L502.0250, L500.2500 #### [facility] [address] [place], [address] Bilirubin [Mass/Vol] 0.20 mg/dL Normal 0.20-1.00 [facility] Comment on above: Order Comment: 111.2 20241114 Result Comment: For patients on eltrombopag therapy, use of Dimension [place] TBIL is not recommended. Performed By: #### L 100.0100, L501.9060, L502.0250, L500.2500 #### [facility] [address] [place], [address] BUN/CRE 10.4 RATIO Normal 10-20 [facility] Comment on above: Order Comment: 111.2 20241114 Performed By: #### L 100.0100, L501.9060, L502.0250, L500.2500 #### [facility] [address] [place], [address] CA,Total 9.3 mg/dL Normal 8.5-10.1 [facility] Comment on above: Order Comment: 111.2 20241114 Performed By: #### L 100.0100, L501.9060, L502.0250, L500.2500 #### [facility] [address] [place], [address] Chloride [Moles/Vol] 109 mmol/L High 98-107 [facility] Comment on above: Order Comment: 111.2 20241114 Performed By: #### L 100.0100, L501.9060, L502.0250, L500.2500 #### [facility] [address] [place], [address] CO2 [Moles/Vol] 27.0 mmol/L Normal 21.0-32.0 [facility] Comment on above: Order Comment: 111.2 20241114 Performed By: #### L 100.0100, L501.9060, L502.0250, L500.2500 #### [facility] [address] [place], [address] Creatinine [Mass/Vol] 2.22 mg/dL High 0.70-1.[address] [facility] Comment on above: Order Comment: 111.2 20241114 Result Comment: The validity of the calculated GFR GFRAA in patients over 70 years has not been determined. Clinical correlation is essential. Performed By: #### L 100.0100, L501.9060, L502.0250, L500.2500 #### [facility] [address] [place], [address] EST GFR - AA 39 mL/min Low >60 [facility] Comment on above: Order Comment: 111.2 20241114 Result Comment: Afri can Eritrean GFR Calc Performed By: #### L 100.0100, L501.9060, L502.0250, L500.2500 #### [facility] [address] [place], [address] GAP 6 Normal 5-15 [facility] Comment on above: Order Comment: 111.2 20241114 Performed By: #### L 100.0100, L501.9060, L502.0250, L500.2500 #### [facility] [address] [place], [address] GFR/1.73 sq M.predicted among non-blacks MDRD (S/P/Bld) [Vol rate/Area] 32 mL/min/{1.73_m2} Low >60 [facility] Comment on above: Order Comment: 111.2 20241114 Result Comment: Non- GFR Calc Performed By: #### L 100.0100, L501.9060, L502.0250, L500.2500 #### [facility] [address] [place], [address] Globulin (S) [Mass/Vol] 2.9 g/dL Normal 2.2-4.2 [facility] Comment on above: Order Comment: 111.2 20241114 Performed By: #### L 100.0100, L501.9060, L502.0250, L500.2500 #### [facility] [address] [place], [address] Glucose [Mass/Vol] 122 mg/dL High 74-106 [facility] Comment on above: Order Comment: 111.2 20241114 Result Comment: Fast ing Glucose result from 100 to 125 mg/dL suggests IMPAIRED HOMEOSTASIS per A.D.A. criteria. Performed By: #### L 100.0100, L501.9060, L502.0250, L500.2500 #### [facility] [address] [place], [address] Potassium [Moles/Vol] 3.9 mmol/L Normal 3.5-5.[address] [facility] Comment on above: Order Comment: 111.2 20241114 Performed By: #### L 100.0100, L501.9060, L502.0250, L500.2500 #### [facility] [address] [place], [address] Sodium [Moles/Vol] 142 mmol/L Normal 136-145 [facility] Comment on above: Order Comment: 111.2 20241114 Performed By: #### L 100.0100, L501.9060, L502.0250, L500.2500 #### [facility] [address] [place], [address] T PROT 5.9 g/dL Low 6.4-8.2 [facility] Comment on above: Order Comment: 111.2 20241114 Performed By: #### L 100.0100, L501.9060, L502.0250, L500.2500 #### [facility] [address] [place], [address] Urea nitrogen [Mass/Vol] 23 mg/dL High 7-18 [facility] Comment on above: Order Comment: 111.2 20241114 Performed By: #### L 100.0100, L501.9060, L502.0250, L500.2500 #### [facility] [address] [place], [address] Phosphoruson 09-12-2024 Phosphate [Mass/Vol] 4.7 mg/dL Normal 2.5-4.9 [facility] Comment on above: Order Comment: 111.2 20241114 Performed By: #### L 100.0100, L501.9060, L502.0250, L500.2500 #### [facility] [address] [place], [address] Uric Acidon 08-27-2024 URIC 6.3 mg/dL Normal 3.5-7.2 [facility] Comment on above: Order Comment: 111.2 Result Comment: The drugs N-Acetylcysteine and Metamizole may falsely depress this assay. Performed By: #### L 100.0100, L501.9060, L502.0250, L500.2500 #### [facility] [address] [place], [address] Lipid Profileon 08-10-2024 Cholesterol [Mass/Vol] 148 mg/dL Normal 200 [facility] Comment on above: Order Comment: 111.2 Result Comment: <200 mg/dL Desirable 200-240 mg/dL Borderline >240 mg/dL High Risk Performed By: #### L 100.0100, L501.9060, L502.0250, L500.2500 #### [facility] [address] [place], [address] Cholesterol in HDL [Mass/Vol] 41 mg/dL Normal [facility] Comment on above: Order Comment: 111.2 Result Comment: The drugs N-Acetylcysteine and Metamizole may falsely depress this assay. Reference Range HDL <40 mg/dL Low HDL Cholesterol HDL >or= 60 mg/dL High HDL Cholesterol Performed By: #### L 100.0100, L501.9060, L502.0250, L500.2500 #### [facility] [address] [place], [address] Cholesterol in LDL [Mass/Vol] 80 mg/dL Normal 0-130 [facility] Comment on above: Order Comment: 111.2 Performed By: #### L 100.0100, L501.9060, L502.0250, L500.2500 #### [facility] [address] [place], [address] Cholesterol in VLDL [Mass/Vol] 27 mg/dL Normal 5-40 [facility] Comment on above: Order Comment: 111.2 Performed By: #### L 100.0100, L501.9060, L502.0250, L500.2500 #### [facility] [address] [place], [address] Triglyceride [Mass/Vol] 133 mg/dL Normal [facility] Comment on above: Order Comment: 111.2 Result Comment: The drugs N-Acetylcysteine and Metamizole may falsely depress this assay. Serum Triglycerides Reference Interval Normal <150 mg/dL Borderline high 150 - 199 mg/dL High 200 - 499 mg/dL Very High > or = 500 mg/dL Performed By: #### L 100.0100, L501.9060, L502.0250, L500.2500 #### [facility] [address] [place], [address] Lithiumon 08-10-2024 LI 0.60 mmol/L Normal 0.60-1.20 [facility] Comment on above: Order Comment: 111.2 Performed By: #### L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 ratioOrdered By: Alfredo Phipps on 02-03-2024 Erythrocyte distribution width (RBC) [Ratio] 13.6 % 11.6-14.6 [facility] Erythrocyte distribution wid th standard deviationOrdered By: Alfredo Phipps on 02-03-2024 Erythrocyte distribution width (RBC) [Entitic vol] 44.2 fL 35.1-43.9 [facility] Hematocrit Auto (Bld) [Volum e fraction]Ordered By: Alfredo Phipps on 02-03-2024 Hematocrit (Bld) [Volume fraction] 40.4 % 40-54 [facility] Immature granulocytes/100 WB C Auto (Bld)Ordered By: Alfredo Phipps on 02-03-2024 Immature granulocytes/100 WBC (Bld) 0.700 % 0.0-0.9 [facility] Comment on above: IG% - Immature Granu locytes (promyelocytes, myelocytes and metamyelocytes) > 1% indicates that a LEFT SHIFT is Present. Laboratory - Chemistry and C hemistry - challengeOrdered By: Alfredo Phipps on 02-03-2024 CO2 [Moles/Vol] 24.0 mmol/L 21.0-32.0 [facility] Urea nitrogen/Creatinine [Mass ratio] 10.9 mg/mg 10-20 [facility] - Hematology and Cell countsOrdered By: Alfredo Phipps on 02-03-2024 MCH (RBC) [Entitic mass] 29.3 pg 27.0-32.0 [facility] MCHC (RBC) [Mass/Vol] 32.9 g/dL 32-[address] [facility] Nucleated RBC/100 WBC (Bld) [Ratio] 0 % 0-5 [facility] Platelet mean volume (Bld) [Entitic vol] 9.5 fL 6.2-12.0 [facility] Platelets (Bld) [#/Vol] 234 10*3/uL 150-450 [facility] No Panel InformationOrdered By: Alfredo Phipps on 02-03-2024 Estimated GFR (MDRD) Amer 48 mL/min >60 [facility] Comment on above: GFR Calc Estimated GFR (MDRD) Non-Af Amer 40 mL/min >60 [facility] Comment on above: Non- GFR Calc [place] Level 0.60 mmol/L 0.60-1.20 [facility] RBC Auto (Bld) [#/Vol]Ordere d By: Alfredo Phipps on 02-03-2024 RBC (Bld) [#/Vol] 4.54 10*6/uL 4.6-6.2 [facility] Serum or plasma calcium you urement (mass/volume)Ordered By: Alfredo Phipps on 02-03-2024 Calcium [Mass/Vol] 9.2 mg/dL 8.5-10.1 [facility] Serum or plasma creatinine m easurement (mass/volume)Ordered By: Alfredo Phipps on 02-03-2024 Creatinine [Mass/Vol] 1.84 mg/dL 0.70-1.[address] [facility] Comment on above: The validity of the calculated GFR & GFRAA in patients over 70 years has not been determined. Clinical correlation is essential. Serum or plasma urea nitroge n measurement (mass/volume)Ordered By: Alfredo Phipps on 02-03-2024 Urea nitrogen [Mass/Vol] 20 mg/dL 7-18 [facility] Thin prep Papanicolaou smear with manual screeningOrdered By: Alfredo Phipps on 02-03-2024 Thin prep Papanicolaou smear with manual screening 3.0 g/dL 3.2-5.0 [facility] Protein (U) [Mass/Vol] 19.8 mg/dL 0.0-11.8 [facility] Urine creatinine measurement (mass/volume)Ordered By: Alfredo Phipps on 02-03-2024 Creatinine (U) [Mass/Vol] 116.00 mg/dL NO RANGE EST. [facility] Urine protein/creatinine mas s ratioOrdered By: Alfredo Phipps on 02-03-2024 Protein/Creatinine (U) [Mass ratio] 171 mg/g CRE 0-200 [facility] Absolute lymphocyte countOrd ered By: Alfredo Phipps on 01-06-2024 Lymphocytes Auto (Unsp spec) [#/Vol] 2.00 10*3/uL 0.83-4.51 [facility] Automated lymphocyte count a s percentage of total leukocytesOrdered By: Alfredo Phipps on 01-06-2024 Lymphocytes/100 WBC Auto (Unsp spec) 20.9 % 19-41 [facility] Basophil percentageOrdered B y: Alfredo Phipps on 01-06-2024 Basophil percentage 4.2 mg/dL 2.5-4.9 [facility] Basophils/100 WBC (Bld) 0.8 % 0-1 [facility] Chloride [Moles/Vol] 109 mmol/L 98-107 [facility] Eosinophils/100 WBC (Bld) 3.9 % 0-5 [facility] Glucose [Mass/Vol] 113 mg/dL 74-106 [facility] Comment on above: Fasting Glucose resu lt from 100 to 125 mg/dL suggests IMPAIRED HOMEOSTASIS per A.D.A. criteria. Hemoglobin (Bld) [Mass/Vol] 13.7 g/dL 13.0-16.5 [facility] Monocytes/100 WBC (Bld) 8.4 % 0-10 [facility] Neutrophils (Bld) [#/Vol] 6.3 10*3/uL 2.0-7.7 [facility] Neutrophils/100 WBC (Bld) 65.7 % 47-70 [facility] Potassium [Moles/Vol] 4.2 mmol/L 3.5-5.[address] [facility] Sodium [Moles/Vol] 143 mmol/L 136-145 [facility] WBC (Bld) [#/Vol] 9.6 10*3/uL 4.4-11.0 [facility] Determination of erythrocyte mean corpuscular volume (MCV)Ordered By: Alfredo Phipps on 01-06-2024 MCV (RBC) [Entitic vol] 90.1 fL 80-94 [facility] Erythrocyte distribution wid th ratioOrdered By: Alfredo Phipps on 01-06-2024 Erythrocyte distribution width (RBC) [Ratio] 13.2 % 11.6-14.6 [facility] Erythrocyte distribution wid th standard deviationOrdered By: Alfredo Phipps on 01-06-2024 Erythrocyte distribution width (RBC) [Entitic vol] 43.2 fL 35.1-43.9 [facility] Hematocrit Auto (Bld) [Volum e fraction]Ordered By: Alfredo Phipps on 01-06-2024 Hematocrit (Bld) [Volume fraction] 41.7 % 40-54 [facility] Immature granulocytes/100 WB C Auto (Bld)Ordered By: Alfredo Phipps on 01-06-2024 Immature granulocytes/100 WBC (Bld) 0.300 % 0.0-0.9 [facility] Comment on above: IG% - Immature Granu locytes (promyelocytes, myelocytes and metamyelocytes) > 1% indicates that a LEFT SHIFT is Present. Laboratory - Chemistry and C hemistry - challengeOrdered By: Alfredo Phipps on 01-06-2024 CO2 [Moles/Vol] 24.0 mmol/L 21.0-32.0 [facility] Urea nitrogen/Creatinine [Mass ratio] 8.9 mg/mg 10-20 [facility] - Hematology and Cell countsOrdered By: Alfredo Phipps on 01-06-2024 MCH (RBC) [Entitic mass] 29.6 pg 27.0-32.0 [facility] MCHC (RBC) [Mass/Vol] 32.9 g/dL 32-[address] [facility] Nucleated RBC/100 WBC (Bld) [Ratio] 0 % 0-5 [facility] Platelet mean volume (Bld) [Entitic vol] 9.6 fL 6.2-12.0 [facility] Platelets (Bld) [#/Vol] 209 10*3/uL 150-450 [facility] No Panel InformationOrdered By: Alfredo Phipps on 01-06-2024 Estimated GFR (MDRD) Amer 44 mL/min >60 [facility] Comment on above: GFR Calc Estimated GFR (MDRD) Non-Af Amer 36 mL/min >60 [facility] Comment on above: Non- GFR Calc [place] Level 0.60 mmol/L 0.60-1.20 [facility] RBC Auto (Bld) [#/Vol]Ordere d By: Alfredo Phipps on 01-06-2024 RBC (Bld) [#/Vol] 4.63 10*6/uL 4.6-6.2 [facility] Serum or plasma calcium you urement (mass/volume)Ordered By: Alfredo Phipps on 01-06-2024 Calcium [Mass/Vol] 9.3 mg/dL 8.5-10.1 [facility] Serum or plasma creatinine m easurement (mass/volume)Ordered By: Alfredo Phipps on 01-06-2024 Creatinine [Mass/Vol] 2.02 mg/dL 0.70-1.[address] [facility] Comment on above: The validity of the calculated GFR & GFRAA in patients over 70 years has not been determined. Clinical correlation is essential. Serum or plasma urea nitroge n measurement (mass/volume)Ordered By: Alfredo Phipps on 01-06-2024 Urea nitrogen [Mass/Vol] 18 mg/dL 7-18 [facility] Thin prep Papanicolaou smear with manual screeningOrdered By: Alfredo Phipps on 01-06-2024 Thin prep Papanicolaou smear with manual screening 3.3 g/dL 3.2-5.0 [facility] Protein (U) [Mass/Vol] 19.0 mg/dL 0.0-11.8 [facility] Urine creatinine measurement (mass/volume)Ordered By: Alfredo Phipps on 01-06-2024 Creatinine (U) [Mass/Vol] 122.00 mg/dL NO RANGE EST. [facility] Urine protein/creatinine mas s ratioOrdered By: Alfredo Phipps on 01-06-2024 Protein/Creatinine (U) [Mass ratio] 156 mg/g CRE 0-200 [facility] CBC W Auto Differential pane l (Bld)on 12-20-2023 Basophils (Bld) [#/Vol] 0.11 10*3/uL High <0.11 k/uL [facility] Basophils/100 WBC (Bld) 1.0 % [facility] Differential cell count method Nom (Bld) Auto [facility] Eosinophils (Bld) [#/Vol] 0.31 10*3/uL <0.46 k/uL [facility] Eosinophils/100 WBC (Bld) 2.8 % [facility] Erythrocyte distribution width (RBC) [Ratio] 12.9 % 11.5 - 15.0 % [facility] Hematocrit (Bld) [Volume fraction] 46.0 % 39.0 - 51.0 % [facility] Hemoglobin (Bld) [Mass/Vol] 15.2 g/dL 13.0 - 17.0 g/dL [facility] Immature granulocytes (Bld) [#/Vol] 0.06 10*3/uL <0.10 k/uL [facility] Immature granulocytes/100 WBC (Bld) 0.5 % [facility] Lymphocytes (Bld) [#/Vol] 1.82 10*3/uL 1.00 - 4.00 k/uL [facility] Lymphocytes/100 WBC (Bld) 16.5 % [facility] MCH (RBC) [Entitic mass] 28.9 pg 26. 0 - 34.0 pg [facility] MCHC (RBC) [Mass/Vol] 33.0 g/dL 30.5 - 36.0 g/dL [facility] MCV (RBC) [Entitic vol] 87.5 fL 80.0 - 100.0 fL [facility] Monocytes (Bld) [#/Vol] 0.88 10*3/uL High <0.87 k/uL [facility] Monocytes/100 WBC (Bld) 8.0 % [facility] Neutrophils (Bld) [#/Vol] 7.82 10*3/uL High 1.45 - 7.50 k/uL [facility] Neutrophils/100 WBC (Bld) 71.2 % [facility] Nucleated RBC (Bld) [#/Vol] <0.01 k/uL [facility] Nucleated RBC/100 WBC (Bld) [Ratio] 0.0 /100 WBC [facility] Platelet mean volume (Bld) [Entitic vol] 9.4 fL 9.0 - 12.7 fL [facility] Platelets (Bld) [#/Vol] 247 10*3/uL 150 - 400 k/uL [facility] RBC (Bld) [#/Vol] 5.26 10*6/uL 4.20 - 6.00 m/uL [facility] WBC (Bld) [#/Vol] 11.00 10*3/uL 3.70 - 11.00 k/uL [facility] CYSTATIN Con 12-20-2023 Cystatin C [Mass/Vol] 1.87 mg/L High 0.61 - 0.95 mg/L [facility] Cystatin C eGFR 34 mL/min/1.73m Low >=60 mL/min/1.7 3m [facility] Comprehensive metabolic 2000 panelon 12-20-2023 Albumin [Mass/Vol] 4.2 g/dL 3.9 - 4.9 g/dL [facility] ALP [Catalytic activity/Vol] 105 U/L 38 - 113 U/L [facility] ALT [Catalytic activity/Vol] 31 U/L 10 - 54 U/L [facility] Anion gap [Moles/Vol] 15 mmol/L 9 - 18 mmol/L [facility] AST [Catalytic activity/Vol] 19 U/L 14 - 40 U/L [facility] Bilirubin [Mass/Vol] 0.3 mg/dL 0.2 - 1 .3 mg/dL [facility] Calcium [Mass/Vol] 10.2 mg/dL 8.5 - 10. 2 mg/dL [facility] Chloride [Moles/Vol] 103 mmol/L 97 - 10 5 mmol/L [facility] CO2 [Moles/Vol] 24 mmol/L 22 - 30 mmol/L [facility] Creatinine [Mass/Vol] 2.22 mg/dL High 0.73 - 1.22 mg/dL [facility] Estimated Glomerular Filtration Rate 33 mL/min/1.73m Low >=60 mL/min/1.7 3m [facility] Glucose [Mass/Vol] 114 mg/dL High 74 - 99 mg/dL [facility] Potassium [Moles/Vol] 4.2 mmol/L 3.7 - 5.1 mmol/L [facility] Protein [Mass/Vol] 7.0 g/dL 6.3 - 8.0 g/dL [facility] Sodium [Moles/Vol] 142 mmol/L 136 - 144 mmol/L [facility] Urea nitrogen [Mass/Vol] 19 mg/dL 9 - 24 mg/dL [facility] LIPID PANEL, NONFASTINGon Cholesterol [Mass/Vol] 139 mg/dL <200 mg/dL [facility] HDL Cholesterol, Nonfasting 32 mg/dL Low >39 mg/dL [facility] LDL Cholesterol, Nonfasting 51 mg/dL <100 mg/dL [facility] LDL/HDL Ratio, Nonfasting 1.59 mg/dL <2.54 mg/dL [facility] Non HDL Cholesterol, Nonfasting 107 mg/dL <130 mg/dL [facility] Total Chol/HDL Ratio, Nonfasting 4.34 mg/dL <5.10 mg/dL [facility] Triglycerides, Nonfasting 280 mg/dL High <150 mg/dL [facility] VLDL Cholesterol, Nonfasting 56 mg/dL High <30 mg/dL [facility] PHOSPHORUS INORGANICon 12-20 Phosphate [Mass/Vol] 2.1 mg/dL Low 2.7 - 4 .8 mg/dL [facility] PROTEIN CREATININE RATIOon 0 12-20-2023 Protein/Creatinine (U) [Mass ratio] 0.07 mg/mg <0.15 mg/mg [facility] PTH INTACT BLDon 12-20-2023 Parathyrin.intact [Mass/Vol] 121 pg/mL High 15 - 65 pg/mL [facility] Protein/Creatinine (U) [Mass ratio]on 12-20-2023 Creatinine (U) [Mass/Vol] 103.8 mg/dL 20.0 - 300.0 mg/dL [facility] Protein (U) [Mass/Vol] 7 mg/dL 0 - 2 0 mg/dL [facility] URINALYSIS, REFLEX MICROSCOP ICon 12-20-2023 Bilirubin Ql (U) Negative Negative [facility] Clarity (Unsp spec) Clear Clear [facility] Color (U) Light Yellow Yellow [facility] Glucose Test strip (U) [Mass/Vol] Negative Trace, Negative [facility] Hemoglobin Ql (U) Negative Negative, Trace [facility] Ketones Ql (U) Negative Negative, Trace [facility] Leukocyte esterase Test strip Ql (U) Negative Negative, 25 Mary/uL [facility] Nitrite Ql (U) Negative Negative [facility] pH (U) 6.0 [pH] 5.0 - 8.0 [facility] Protein (U) [Mass/Vol] Negative Trace , Negative [facility] Specific gravity (U) [Rel density] 1.010 1.005 - 1.030 [facility] Urobilinogen Ql (U) Normal Normal [facility] Absolute lymphocyte countOrd ered By: Alfredo Phipps on 12-09-2023 Lymphocytes Auto (Unsp spec) [#/Vol] 2.24 10*3/uL 0.83-4.51 [facility] Automated lymphocyte count a s percentage of total leukocytesOrdered By: Alfredo Phipps on 12-09-2023 Lymphocytes/100 WBC Auto (Unsp spec) 23.2 % 19-41 [facility] Basophil percentageOrdered B y: Alfredo Phipps on 12-09-2023 Basophil percentage 3.8 mg/dL 2.5-4.9 [facility] Basophils/100 WBC (Bld) 1.0 % 0-1 [facility] Chloride [Moles/Vol] 110 mmol/L 98-107 [facility] Eosinophils/100 WBC (Bld) 3.9 % 0-5 [facility] Glucose [Mass/Vol] 129 mg/dL 74-106 [facility] Comment on above: Fasting Glucose resu lt greater than or equal to 126 mg/dL suggests DIABETES MELLITUS per A.D.A. criteria. Hemoglobin (Bld) [Mass/Vol] 13.9 g/dL 13.0-16.5 [facility] Monocytes/100 WBC (Bld) 9.3 % 0-10 [facility] Neutrophils (Bld) [#/Vol] 6.0 10*3/uL 2.0-7.7 [facility] Neutrophils/100 WBC (Bld) 62.2 % 47-70 [facility] Potassium [Moles/Vol] 3.5 mmol/L 3.5-5.[address] [facility] Sodium [Moles/Vol] 138 mmol/L 136-145 [facility] WBC (Bld) [#/Vol] 9.7 10*3/uL 4.4-11.0 [facility] Determination of erythrocyte mean corpuscular volume (MCV)Ordered By: Alfredo Phipps on 12-09-2023 MCV (RBC) [Entitic vol] 90.2 fL 80-94 [facility] Erythrocyte distribution wid th ratioOrdered By: Alfredo Phipps on 12-09-2023 Erythrocyte distribution width (RBC) [Ratio] 13.1 % 11.6-14.6 [facility] Erythrocyte distribution wid th standard deviationOrdered By: Alfredo Phipps on 12-09-2023 Erythrocyte distribution width (RBC) [Entitic vol] 43.2 fL 35.1-43.9 [facility] Hematocrit Auto (Bld) [Volum e fraction]Ordered By: Alfredo Phipps on 12-09-2023 Hematocrit (Bld) [Volume fraction] 43.2 % 40-54 [facility] Immature granulocytes/100 WB C Auto (Bld)Ordered By: Alfredo Phipps on 12-09-2023 Immature granulocytes/100 WBC (Bld) 0.400 % 0.0-0.9 [facility] Comment on above: IG% - Immature Granu locytes (promyelocytes, myelocytes and metamyelocytes) > 1% indicates that a LEFT SHIFT is Present. Laboratory - Chemistry and C hemistry - challengeOrdered By: Alfredo Phipps on 12-09-2023 CO2 [Moles/Vol] 21.0 mmol/L 21.0-32.0 [facility] Urea nitrogen/Creatinine [Mass ratio] 7.4 mg/mg 10-20 [facility] Laboratory - Hematology and Cell countsOrdered By: Alfredo Phipps on 12-09-2023 MCH (RBC) [Entitic mass] 29.0 pg 27.0-32.0 [facility] MCHC (RBC) [Mass/Vol] 32.2 g/dL 32-[address] [facility] Nucleated RBC/100 WBC (Bld) [Ratio] 0 % 0-5 [facility] Platelets (Bld) [#/Vol] 235 10*3/uL 150-450 [facility] No Panel InformationOrdered By: Alfredo Phipps on 12-09-2023 Estimated GFR (MDRD) Amer 44 mL/min >60 [facility] Comment on above: GFR Calc Estimated GFR (MDRD) Non-Af Amer 36 mL/min >60 [facility] Comment on above: Non- GFR Calc [place] Level 0.40 mmol/L 0.60-1.20 [facility] Platelet mean volume Naresh-Ec ker (Bld) [Entitic vol]Ordered By: Alfredo Phipps on 12-09-2023 Platelet mean volume (Bld) [Entitic vol] 9.5 fL 6.2-12.0 [facility] RBC Auto (Bld) [#/Vol]Ordere d By: Alfredo Phipps on 12-09-2023 RBC (Bld) [#/Vol] 4.79 10*6/uL 4.6-6.2 [facility] Serum or plasma calcium yuo urement (mass/volume)Ordered By: Alfredo Phipps on 12-09-2023 Calcium [Mass/Vol] 9.3 mg/dL 8.5-10.1 [facility] Serum or plasma creatinine m easurement (mass/volume)Ordered By: Alfredo Phipps on 12-09-2023 Creatinine [Mass/Vol] 2.02 mg/dL 0.70-1.[address] [facility] Comment on above: The validity of the calculated GFR & GFRAA in patients over 70 years has not been determined. Clinical correlation is essential. Serum or plasma urea nitroge n measurement (mass/volume)Ordered By: Alfredo Phipps on 12-09-2023 Urea nitrogen [Mass/Vol] 15 mg/dL 7-18 [facility] Thin prep Papanicolaou smear with manual screeningOrdered By: Alfredo Phipps on 12-09-2023 Thin prep Papanicolaou smear with manual screening 3.2 g/dL 3.2-5.0 [facility] Urine creatinine measurement (mass/volume)Ordered By: Adam Ferraro on 11-16-2023 Creatinine (U) [Mass/Vol] 178.00 mg/dL NO RANGE EST. [facility] Urine protein measurement (m ass/volume)Ordered By: Adam Ferraro on 11-16-2023 Protein (U) [Mass/Vol] 28.7 mg/dL 0.0-11.8 [facility] Urine protein/creatinine mas s ratioOrdered By: Adam Ferraro on 11-16-2023 Protein/Creatinine (U) [Mass ratio] 161 mg/g CRE 0-200 [facility] Absolute lymphocyte countOrd ered By: Adam Ferraro on 11-11-2023 Lymphocytes Auto (Unsp spec) [#/Vol] 3.10 10*3/uL 0.83-4.51 [facility] Basophil percentageOrdered B y: Adam Ferraro on 11-11-2023 Basophil percentage 3.6 mg/dL 2.5-4.9 [facility] Basophils/100 WBC (Bld) 0.8 % 0-1 [facility] Chloride [Moles/Vol] 108 mmol/L 98-107 [facility] Eosinophils/100 WBC (Bld) 3.4 % 0-5 [facility] Glucose [Mass/Vol] 120 mg/dL 74-106 [facility] Comment on above: Fasting Glucose resu lt from 100 to 125 mg/dL suggests IMPAIRED HOMEOSTASIS per A.D.A. criteria. Neutrophils (Bld) [#/Vol] 7.1 10*3/uL 2.0-7.7 [facility] Neutrophils/100 WBC (Bld) 61.0 % 47-70 [facility] Potassium [Moles/Vol] 3.6 mmol/L 3.5-5.[address] [facility] Sodium [Moles/Vol] 140 mmol/L 136-145 [facility] WBC (Bld) [#/Vol] 11.6 10*3/uL 4.4-11.0 [facility] Blood erythrocytes count (nu mber/volume)Ordered By: Adam Ferraro on 11-11-2023 RBC (Bld) [#/Vol] 4.98 10*6/uL 4.6-6.2 [facility] Blood hemoglobin measurement (mass/volume)Ordered By: Adam Ferraro on 11-11-2023 Hemoglobin (Bld) [Mass/Vol] 14.4 g/dL 13.0-16.5 [facility] Blood lymphocytes/100 leukoc ytesOrdered By: Adam Ferraro on 11-11-2023 Lymphocytes/100 WBC (Bld) 26.7 % 19-41 [facility] Blood monocytes/100 leukocyt esOrdered By: Adam Ferraro on 11-11-2023 Monocytes/100 WBC (Bld) 7.3 % 0-10 [facility] Blood platelet mean volumeOr dered By: Adam Ferraro on 11-11-2023 Platelet mean volume (Bld) [Entitic vol] 9.4 fL 6.2-12.0 [facility] Determination of erythrocyte mean corpuscular volume (MCV)Ordered By: Adam Ferraro on 11-11-2023 MCV (RBC) [Entitic vol] 89.8 fL 80-94 [facility] Hematocrit Auto (Bld) [Volum e fraction]Ordered By: Adam Ferraro on 11-11-2023 Hematocrit (Bld) [Volume fraction] 44.7 % 40-54 [facility] Laboratory - Chemistry and C hemistry - challengeOrdered By: Adam Ferraro on 11-11-2023 CO2 [Moles/Vol] 24.0 mmol/L 21.0-32.0 [facility] Urea nitrogen/Creatinine [Mass ratio] 7.8 mg/mg 10-20 [facility] Laboratory - Hematology and Cell countsOrdered By: Adam Ferraro on 11-11-2023 Erythrocyte distribution width (RBC) [Entitic vol] 42.7 fL 35.1-43.9 [facility] Erythrocyte distribution width (RBC) [Ratio] 13.1 % 11.6-14.6 [facility] Immature granulocytes/100 WBC (Bld) 0.800 % 0.0-0.9 [facility] Comment on above: IG% - Immature Granu locytes (promyelocytes, myelocytes and metamyelocytes) > 1% indicates that a LEFT SHIFT is Present. MCH (RBC) [Entitic mass] 28.9 pg 27.0-32.0 [facility] Nucleated RBC/100 WBC (Bld) [Ratio] 0 % 0-5 [facility] MCHC Auto (RBC) [Mass/Vol]Or dered By: Adam Ferraro on 11-11-2023 MCHC (RBC) [Mass/Vol] 32.2 g/dL 32-[address] [facility] No Panel InformationOrdered By: Adam Ferraro on 11-11-2023 Estimated GFR (MDRD) Amer 37 mL/min >60 [facility] Comment on above: GFR Calc Estimated GFR (MDRD) Non-Af Amer 31 mL/min >60 [facility] Comment on above: Non- GFR Calc [place] Level 0.60 mmol/L 0.60-1.20 [facility] Platelets bldOrdered By: Benoit Ferraro on 11-11-2023 Platelets (Bld) [#/Vol] 252 10*3/uL 150-450 [facility] Serum or plasma albumin you urement (mass/volume)Ordered By: Adam Ferraro on 11-11-2023 Albumin [Mass/Vol] 3.1 g/dL 3.2-5.0 [facility] Serum or plasma calcium you urement (mass/volume)Ordered By: Adam Ferraro on 11-11-2023 Calcium [Mass/Vol] 8.9 mg/dL 8.5-10.1 [facility] Serum or plasma creatinine m easurement (mass/volume)Ordered By: Adam Ferraro on 11-11-2023 Creatinine [Mass/Vol] 2.31 mg/dL 0.70-1.[address] [facility] Comment on above: The validity of the calculated GFR & GFRAA in patients over 70 years has not been determined. Clinical correlation is essential. Serum or plasma urea nitroge n measurement (mass/volume)Ordered By: Adam Ferraro on 11-11-2023 Urea nitrogen [Mass/Vol] 18 mg/dL 7-18 [facility] Serum or plasma uric acid me asurement (mass/volume)Ordered By: Adam Ferraro on 10-27-2023 Urate [Mass/Vol] 8.1 mg/dL 3.5-7.2 [facility] Comment on above: The drugs N-Acetylcy steine and Metamizole may falsely depress this assay. Absolute lymphocyte countOrd ered By: Alfredo Phipps on 10-14-2023 Lymphocytes Auto (Unsp spec) [#/Vol] 1.52 10*3/uL 0.83-4.51 [facility] Basophil percentageOrdered B y: Alfredo Phipps on 10-14-2023 Basophil percentage 3.2 mg/dL 2.5-4.9 [facility] Basophils/100 WBC (Bld) 1.2 % 0-1 [facility] Chloride [Moles/Vol] 110 mmol/L 98-107 [facility] Eosinophils/100 WBC (Bld) 5.0 % 0-5 [facility] Glucose [Mass/Vol] 151 mg/dL 74-106 [facility] Comment on above: Fasting Glucose resu lt greater than or equal to 126 mg/dL suggests DIABETES MELLITUS per A.D.A. criteria. Neutrophils (Bld) [#/Vol] 6.6 10*3/uL 2.0-7.7 [facility] Neutrophils/100 WBC (Bld) 68.8 % 47-70 [facility] Potassium [Moles/Vol] 3.8 mmol/L 3.5-5.[address] [facility] Sodium [Moles/Vol] 141 mmol/L 136-145 [facility] WBC (Bld) [#/Vol] 9.5 10*3/uL 4.4-11.0 [facility] Blood erythrocytes count (nu mber/volume)Ordered By: Alfredo Phipps on 10-14-2023 RBC (Bld) [#/Vol] 4.51 10*6/uL 4.6-6.2 [facility] Blood hemoglobin measurement (mass/volume)Ordered By: Alfredo Phipps on 10-14-2023 Hemoglobin (Bld) [Mass/Vol] 13.0 g/dL 13.0-16.5 [facility] Blood lymphocytes/100 leukoc ytesOrdered By: Alfredo Phipps on 10-14-2023 Lymphocytes/100 WBC (Bld) 15.9 % 19-41 [facility] Blood monocytes/100 leukocyt esOrdered By: Alfredo Phipps on 10-14-2023 Monocytes/100 WBC (Bld) 8.3 % 0-10 [facility] Blood platelet mean volumeOr dered By: Alfredo Phipps on 10-14-2023 Platelet mean volume (Bld) [Entitic vol] 9.7 fL 6.2-12.0 [facility] Determination of erythrocyte mean corpuscular volume (MCV)Ordered By: Alfredo Phipps on 10-14-2023 MCV (RBC) [Entitic vol] 90.2 fL 80-94 [facility] Hematocrit Auto (Bld) [Volum e fraction]Ordered By: Alfredo Phipps on 10-14-2023 Hematocrit (Bld) [Volume fraction] 40.7 % 40-54 [facility] Laboratory - Chemistry and C hemistry - challengeOrdered By: Alfredo Phipps on 10-14-2023 CO2 [Moles/Vol] 26.0 mmol/L 21.0-32.0 [facility] Urea nitrogen/Creatinine [Mass ratio] 7.5 mg/mg 10-20 [facility] Laboratory - Hematology and Cell countsOrdered By: Alfredo Phipps on 10-14-2023 Erythrocyte distribution width (RBC) [Entitic vol] 43.6 fL 35.1-43.9 [facility] Erythrocyte distribution width (RBC) [Ratio] 13.2 % 11.6-14.6 [facility] Immature granulocytes/100 WBC (Bld) 0.800 % 0.0-0.9 [facility] Comment on above: IG% - Immature Granu locytes (promyelocytes, myelocytes and metamyelocytes) > 1% indicates that a LEFT SHIFT is Present. MCH (RBC) [Entitic mass] 28.8 pg 27.0-32.0 [facility] Nucleated RBC/100 WBC (Bld) [Ratio] 0 % 0-5 [facility] MCHC Auto (RBC) [Mass/Vol]Or dered By: Alfredo Phipps on 10-14-2023 MCHC (RBC) [Mass/Vol] 31.9 g/dL 32-[address] [facility] No Panel InformationOrdered By: Alfredo Phipps on 10-14-2023 Estimated GFR (MDRD) Amer 41 mL/min >60 [facility] Comment on above: GFR Calc Estimated GFR (MDRD) Non-Af Amer 34 mL/min >60 [facility] Comment on above: Non- GFR Calc [place] Level 0.50 mmol/L 0.60-1.20 [facility] Platelets bldOrdered By: Jennifer Phipps on 10-14-2023 Platelets (Bld) [#/Vol] 224 10*3/uL 150-450 [facility] Serum or plasma albumin you urement (mass/volume)Ordered By: Alfredo Phipps on 10-14-2023 Albumin [Mass/Vol] 2.9 g/dL 3.2-5.0 [facility] Serum or plasma calcium you urement (mass/volume)Ordered By: Alfredo Phipps on 10-14-2023 Calcium [Mass/Vol] 8.5 mg/dL 8.5-10.1 [facility] Serum or plasma creatinine m easurement (mass/volume)Ordered By: Alfredo Phipps on 10-14-2023 Creatinine [Mass/Vol] 2.12 mg/dL 0.70-1.[address] [facility] Comment on above: The validity of the calculated GFR & GFRAA in patients over 70 years has not been determined. Clinical correlation is essential. Serum or plasma urea nitroge n measurement (mass/volume)Ordered By: Alfredo Phipps on 10-14-2023 Urea nitrogen [Mass/Vol] 16 mg/dL 7-18 [facility] Urine creatinine measurement (mass/volume)Ordered By: Alfredo Phipps on 10-14-2023 Creatinine (U) [Mass/Vol] 195.00 mg/dL NO RANGE EST. [facility] Urine protein measurement (m ass/volume)Ordered By: Alfredo Phipps on 10-14-2023 Protein (U) [Mass/Vol] 23.4 mg/dL 0.0-11.8 [facility] Urine protein/creatinine mas s ratioOrdered By: Alfredo Phipps on 10-14-2023 Protein/Creatinine (U) [Mass ratio] 120 mg/g CRE 0-200 [facility] Serum or plasma uric acid me asurement (mass/volume)Ordered By: Adam Ferraro on 09-27-2023 Urate [Mass/Vol] 7.3 mg/dL 3.5-7.2 [facility] Comment on above: The drugs N-Acetylcy steine and Metamizole may falsely depress this assay. Absolute lymphocyte countOrd ered By: Alfredo Phipps on 09-16-2023 Lymphocytes Auto (Unsp spec) [#/Vol] 1.78 10*3/uL 0.83-4.51 [facility] Basophil percentageOrdered B y: Alfredo Phipps on 09-16-2023 Basophil percentage 4.3 mg/dL 2.5-4.9 [facility] Basophils/100 WBC (Bld) 1.0 % 0-1 [facility] Chloride [Moles/Vol] 109 mmol/L 98-107 [facility] Eosinophils/100 WBC (Bld) 4.4 % 0-5 [facility] Glucose [Mass/Vol] 143 mg/dL 74-106 [facility] Comment on above: Fasting Glucose resu lt greater than or equal to 126 mg/dL suggests DIABETES MELLITUS per A.D.A. criteria. Neutrophils (Bld) [#/Vol] 6.3 10*3/uL 2.0-7.7 [facility] Neutrophils/100 WBC (Bld) 67.0 % 47-70 [facility] Potassium [Moles/Vol] 4.1 mmol/L 3.5-5.[address] [facility] Sodium [Moles/Vol] 139 mmol/L 136-145 [facility] WBC (Bld) [#/Vol] 9.4 10*3/uL 4.4-11.0 [facility] Blood erythrocytes count (nu mber/volume)Ordered By: Alfredo Phipps on 09-16-2023 RBC (Bld) [#/Vol] 4.63 10*6/uL 4.6-6.2 [facility] Blood hemoglobin measurement (mass/volume)Ordered By: Alfredo Phipps on 09-16-2023 Hemoglobin (Bld) [Mass/Vol] 13.4 g/dL 13.0-16.5 [facility] Blood lymphocytes/100 leukoc ytesOrdered By: Alfredo Phipps on 09-16-2023 Lymphocytes/100 WBC (Bld) 19.0 % 19-41 [facility] Blood monocytes/100 leukocyt esOrdered By: Alfredo Phipps on 09-16-2023 Monocytes/100 WBC (Bld) 8.3 % 0-10 [facility] Blood platelet mean volumeOr dered By: Alfredo Phipps on 09-16-2023 Platelet mean volume (Bld) [Entitic vol] 9.6 fL 6.2-12.0 [facility] Determination of erythrocyte mean corpuscular volume (MCV)Ordered By: Alfredo Phipps on 09-16-2023 MCV (RBC) [Entitic vol] 90.5 fL 80-94 [facility] Hematocrit Auto (Bld) [Volum e fraction]Ordered By: Alfredo Phipps on 09-16-2023 Hematocrit (Bld) [Volume fraction] 41.9 % 40-54 [facility] Laboratory - Chemistry and C hemistry - challengeOrdered By: Alfredo Phipps on 09-16-2023 CO2 [Moles/Vol] 23.0 mmol/L 21.0-32.0 [facility] Urea nitrogen/Creatinine [Mass ratio] 11.6 mg/mg 10-20 [facility] Laboratory - Hematology and Cell countsOrdered By: Alfredo Phipps on 09-16-2023 Erythrocyte distribution width (RBC) [Entitic vol] 46.1 fL 35.1-43.9 [facility] Erythrocyte distribution width (RBC) [Ratio] 13.9 % 11.6-14.6 [facility] Immature granulocytes/100 WBC (Bld) 0.300 % 0.0-0.9 [facility] Comment on above: IG% - Immature Granu locytes (promyelocytes, myelocytes and metamyelocytes) > 1% indicates that a LEFT SHIFT is Present. MCH (RBC) [Entitic mass] 28.9 pg 27.0-32.0 [facility] Nucleated RBC/100 WBC (Bld) [Ratio] 0 % 0-5 [facility] MCHC Auto (RBC) [Mass/Vol]Or dered By: Alfredo Phipps on 09-16-2023 MCHC (RBC) [Mass/Vol] 32.0 g/dL 32-[address] [facility] No Panel InformationOrdered By: Alfredo Phipps on 09-16-2023 Estimated GFR (MDRD) Amer 45 mL/min >60 [facility] Comment on above: GFR Calc Estimated GFR (MDRD) Non-Af Amer 37 mL/min >60 [facility] Comment on above: Non- GFR Calc [place] Level 0.60 mmol/L 0.60-1.20 [facility] Platelets bldOrdered By: Pet er Desire on 09-16-2023 Platelets (Bld) [#/Vol] 212 10*3/uL 150-450 [facility] Serum or plasma albumin you urement (mass/volume)Ordered By: Alfredo Phipps on 09-16-2023 Albumin [Mass/Vol] 2.9 g/dL 3.2-5.0 [facility] Serum or plasma calcium you urement (mass/volume)Ordered By: Alfredo Phipps on 09-16-2023 Calcium [Mass/Vol] 9.0 mg/dL 8.5-10.1 [facility] Serum or plasma creatinine m easurement (mass/volume)Ordered By: Alfredo Phipps on 09-16-2023 Creatinine [Mass/Vol] 1.98 mg/dL 0.70-1.[address] [facility] Comment on above: The validity of the calculated GFR & GFRAA in patients over 70 years has not been determined. Clinical correlation is essential. Serum or plasma urea nitroge n measurement (mass/volume)Ordered By: Alfredo Phipps on 09-16-2023 Urea nitrogen [Mass/Vol] 23 mg/dL 7-18 [facility] Urine creatinine measurement (mass/volume)Ordered By: Alfredo Phipps on 09-16-2023 Creatinine (U) [Mass/Vol] 44.20 mg/dL NO RANGE EST. [facility] Urine protein measurement (m ass/volume)Ordered By: Alfredo Phipps on 09-16-2023 Protein (U) [Mass/Vol] mg/dL 0.0-11.8 [facility] Urine protein/creatinine mas s ratioOrdered By: Alfredo Phipps on 09-16-2023 Protein/Creatinine (U) [Mass ratio] 131 mg/g CRE 0-200 [facility] Urine creatinine measurement (mass/volume)Ordered By: Adam Ferraro on 08-22-2023 Creatinine (U) [Mass/Vol] 105.00 mg/dL NO RANGE EST. [facility] Urine protein measurement (m ass/volume)Ordered By: Adam Ferraro on 08-22-2023 Protein (U) [Mass/Vol] 19.3 mg/dL 0.0-11.8 [facility] Urine protein/creatinine mas s ratioOrdered By: Adam Ferraro on 08-22-2023 Protein/Creatinine (U) [Mass ratio] 184 mg/g CRE 0-200 [facility] Absolute lymphocyte countOrd ered By: Adam Ferraro on 08-19-2023 Lymphocytes Auto (Unsp spec) [#/Vol] 2.02 10*3/uL 0.83-4.51 [facility] Basophil percentageOrdered B y: Adam Ferraro on 08-19-2023 Basophil percentage 4.0 mg/dL 2.5-4.9 [facility] Basophils/100 WBC (Bld) 0.7 % 0-1 [facility] Chloride [Moles/Vol] 108 mmol/L 98-107 [facility] Eosinophils/100 WBC (Bld) 4.4 % 0-5 [facility] Glucose [Mass/Vol] 161 mg/dL 74-106 [facility] Comment on above: Fasting Glucose resu lt greater than or equal to 126 mg/dL suggests DIABETES MELLITUS per A.D.A. criteria. Neutrophils (Bld) [#/Vol] 7.4 10*3/uL 2.0-7.7 [facility] Neutrophils/100 WBC (Bld) 66.8 % 47-70 [facility] Potassium [Moles/Vol] 3.9 mmol/L 3.5-5.[address] [facility] Sodium [Moles/Vol] 140 mmol/L 136-145 [facility] WBC (Bld) [#/Vol] 11.1 10*3/uL 4.4-11.0 [facility] Blood erythrocytes count (nu mber/volume)Ordered By: Adam Ferraro on 08-19-2023 RBC (Bld) [#/Vol] 4.67 10*6/uL 4.6-6.2 [facility] Blood hemoglobin measurement (mass/volume)Ordered By: Adam Ferraro on 08-19-2023 Hemoglobin (Bld) [Mass/Vol] 13.5 g/dL 13.0-16.5 [facility] Blood lymphocytes/100 leukoc ytesOrdered By: Adam Ferraro on 08-19-2023 Lymphocytes/100 WBC (Bld) 18.3 % 19-41 [facility] Blood monocytes/100 leukocyt esOrdered By: Adam Ferraro on 08-19-2023 Monocytes/100 WBC (Bld) 9.1 % 0-10 [facility] Blood platelet mean volumeOr dered By: Adam Ferraro on 08-19-2023 Platelet mean volume (Bld) [Entitic vol] 9.4 fL 6.2-12.0 [facility] Determination of erythrocyte mean corpuscular volume (MCV)Ordered By: Adam Ferraro on 08-19-2023 MCV (RBC) [Entitic vol] 90.1 fL 80-94 [facility] Hematocrit Auto (Bld) [Volum e fraction]Ordered By: Adam Ferraro on 08-19-2023 Hematocrit (Bld) [Volume fraction] 42.1 % 40-54 [facility] Laboratory - Chemistry and C hemistry - challengeOrdered By: Adam Ferraro on 08-19-2023 CO2 [Moles/Vol] 26.0 mmol/L 21.0-32.0 [facility] Urea nitrogen/Creatinine [Mass ratio] 10.9 mg/mg 10-20 [facility] Laboratory - Hematology and Cell countsOrdered By: Adam Ferraro on 08-19-2023 Erythrocyte distribution width (RBC) [Entitic vol] 45.8 fL 35.1-43.9 [facility] Erythrocyte distribution width (RBC) [Ratio] 13.8 % 11.6-14.6 [facility] Immature granulocytes/100 WBC (Bld) 0.700 % 0.0-0.9 [facility] Comment on above: IG% - Immature Granu locytes (promyelocytes, myelocytes and metamyelocytes) > 1% indicates that a LEFT SHIFT is Present. MCH (RBC) [Entitic mass] 28.9 pg 27.0-32.0 [facility] Nucleated RBC/100 WBC (Bld) [Ratio] 0 % 0-5 [facility] MCHC Auto (RBC) [Mass/Vol]Or dered By: Adam Ferraro on 08-19-2023 MCHC (RBC) [Mass/Vol] 32.1 g/dL 32-[address] [facility] No Panel InformationOrdered By: Adam Ferraro on 08-19-2023 Estimated GFR (MDRD) Amer 44 mL/min >60 [facility] Comment on above: GFR Calc Estimated GFR (MDRD) Non-Af Amer 36 mL/min >60 [facility] Comment on above: Non- GFR Calc [place] Level 0.50 mmol/L 0.60-1.20 [facility] Platelets bldOrdered By: Benoit Ferraro on 08-19-2023 Platelets (Bld) [#/Vol] 218 10*3/uL 150-450 [facility] Serum or plasma albumin you urement (mass/volume)Ordered By: Adam Ferraro on 08-19-2023 Albumin [Mass/Vol] 2.9 g/dL 3.2-5.0 [facility] Serum or plasma calcium you urement (mass/volume)Ordered By: Adam Ferraro on 08-19-2023 Calcium [Mass/Vol] 9.0 mg/dL 8.5-10.1 [facility] Serum or plasma creatinine m easurement (mass/volume)Ordered By: Adam Ferraro on 08-19-2023 Creatinine [Mass/Vol] 2.01 mg/dL 0.70-1.[address] [facility] Comment on above: The validity of the calculated GFR & GFRAA in patients over 70 years has not been determined. Clinical correlation is essential. Serum or plasma urea nitroge n measurement (mass/volume)Ordered By: Adam Ferraro on 08-19-2023 Urea nitrogen [Mass/Vol] 22 mg/dL 7-18 [facility] Whole blood hemoglobin A1c/t otal hemoglobin ratio (mass fraction)Ordered By: Adam Ferraro on 08-19-2023 HbA1c (Bld) [Mass fraction] 7.2 % 3.8-5.6 [facility] Comment on above: Normal < 5.7 % Predi abetic 5.7 - 6.4 % Diabetic >or= 6.5 % Please note range changes. Basophil percentageOrdered B y: Adam Ferraro on 07-28-2023 Cholesterol [Mass/Vol] 124 mg/dL <200 [facility] Comment on above: <200 mg/dL Desirable 200-240 [...] Cholesterol in HDL [Mass/Vol] 36 mg/dL >40 [facility] Comment on above: The drugs N-Acetylcy steine and Metamizole may falsely depress this assay. Reference Range HDL <40 mg/dL Low HDL Cholesterol HDL >or= 60 mg/dL High HDL Cholesterol Serum or plasma cholesterol in VLDL measurement (mass/volume)Ordered By: Adam Ferraro on 07-28-2023 Cholesterol in VLDL [Mass/Vol] 47 mg/dL 5-40 [facility] Serum or plasma low density lipoprotein (LDL) cholesterol measurement (mass/volume)Ordered By: Adam Ferraro on 07-28-2023 Cholesterol in LDL [Mass/Vol] 41 mg/dL 0-130 [facility] Serum or plasma uric acid me asurement (mass/volume)Ordered By: Adam Ferraro on 07-28-2023 Urate [Mass/Vol] 6.6 mg/dL 3.5-7.2 [facility] Comment on above: The drugs N-Acetylcy steine and Metamizole may falsely depress this assay. Urine creatinine measurement (mass/volume)Ordered By: Adam Ferraro on 07-24-2023 Creatinine (U) [Mass/Vol] 113.00 mg/dL NO RANGE EST. [facility] Urine protein measurement (m ass/volume)Ordered By: Adam Ferraro on 07-24-2023 Protein (U) [Mass/Vol] 15.1 mg/dL 0.0-11.8 [facility] Urine protein/creatinine mas s ratioOrdered By: Adam Ferraro on 07-24-2023 Protein/Creatinine (U) [Mass ratio] 134 mg/g CRE 0-200 [facility] Absolute lymphocyte countOrd ered By: Alfredo Phipps on 07-22-2023 Lymphocytes Auto (Unsp spec) [#/Vol] 1.60 10*3/uL 0.83-4.51 [facility] Basophil percentageOrdered B y: Alfredo Phipps on 07-22-2023 Basophil percentage 4.2 mg/dL 2.5-4.9 [facility] Basophils/100 WBC (Bld) 1.1 % 0-1 [facility] Chloride [Moles/Vol] 108 mmol/L 98-107 [facility] Eosinophils/100 WBC (Bld) 2.7 % 0-5 [facility] Glucose [Mass/Vol] 138 mg/dL 74-106 [facility] Comment on above: Fasting Glucose resu lt greater than or equal to 126 mg/dL suggests DIABETES MELLITUS per A.D.A. criteria. Neutrophils (Bld) [#/Vol] 6.9 10*3/uL 2.0-7.7 [facility] Neutrophils/100 WBC (Bld) 69.3 % 47-70 [facility] Potassium [Moles/Vol] 3.8 mmol/L 3.5-5.[address] [facility] Sodium [Moles/Vol] 135 mmol/L 136-145 [facility] WBC (Bld) [#/Vol] 9.9 10*3/uL 4.4-11.0 [facility] Blood erythrocytes count (nu mber/volume)Ordered By: Alfredo Phipps on 07-22-2023 RBC (Bld) [#/Vol] 4.79 10*6/uL 4.6-6.2 [facility] Blood hemoglobin measurement (mass/volume)Ordered By: Alfredo Phipps on 07-22-2023 Hemoglobin (Bld) [Mass/Vol] 13.6 g/dL 13.0-16.5 [facility] Blood lymphocytes/100 leukoc ytesOrdered By: Alfredo Phipps on 07-22-2023 Lymphocytes/100 WBC (Bld) 16.1 % 19-41 [facility] Blood monocytes/100 leukocyt esOrdered By: Alfredo Phipps on 07-22-2023 Monocytes/100 WBC (Bld) 10.2 % 0-10 [facility] Blood platelet mean volumeOr dered By: Alfredo Phipps on 07-22-2023 Platelet mean volume (Bld) [Entitic vol] 10.8 fL 6.2-12.0 [facility] Determination of erythrocyte mean corpuscular volume (MCV)Ordered By: Alfredo Phipps on 07-22-2023 MCV (RBC) [Entitic vol] 98.1 fL 80-94 [facility] Hematocrit Auto (Bld) [Volum e fraction]Ordered By: Alfredo Phipps on 07-22-2023 Hematocrit (Bld) [Volume fraction] 47.0 % 40-54 [facility] Laboratory - Chemistry and C hemistry - challengeOrdered By: Alfredo Phipps on 07-22-2023 CO2 [Moles/Vol] 19.0 mmol/L 21.0-32.0 [facility] Urea nitrogen/Creatinine [Mass ratio] 10.7 mg/mg 10-20 [facility] Laboratory - Hematology and Cell countsOrdered By: Alfredo Phipps on 07-22-2023 Erythrocyte distribution width (RBC) [Entitic vol] 58.0 fL 35.1-43.9 [facility] Erythrocyte distribution width (RBC) [Ratio] 16.4 % 11.6-14.6 [facility] Immature granulocytes/100 WBC (Bld) 0.600 % 0.0-0.9 [facility] Comment on above: IG% - Immature Granu locytes (promyelocytes, myelocytes and metamyelocytes) > 1% indicates that a LEFT SHIFT is Present. MCH (RBC) [Entitic mass] 28.4 pg 27.0-32.0 [facility] Nucleated RBC/100 WBC (Bld) [Ratio] 0 % 0-5 [facility] MCHC Auto (RBC) [Mass/Vol]Or dered By: Alfredo Phipps on 07-22-2023 MCHC (RBC) [Mass/Vol] 28.9 g/dL 32-[address] [facility] No Panel InformationOrdered By: Alfredo Phipps on 07-22-2023 Estimated GFR (MDRD) Amer 45 mL/min >60 [facility] Comment on above: GFR Calc Estimated GFR (MDRD) Non-Af Amer 37 mL/min >60 [facility] Comment on above: Non- GFR Calc [place] Level 0.60 mmol/L 0.60-1.20 [facility] Platelets bldOrdered By: Pet shonda Phipps on 07-22-2023 Platelets (Bld) [#/Vol] 209 10*3/uL 150-450 [facility] Serum or plasma albumin you urement (mass/volume)Ordered By: Alfredo Phipps on 07-22-2023 Albumin [Mass/Vol] 2.6 g/dL 3.2-5.0 [facility] Serum or plasma calcium you urement (mass/volume)Ordered By: Alfredo Phipps on 07-22-2023 Calcium [Mass/Vol] 9.1 mg/dL 8.5-10.1 [facility] Serum or plasma creatinine m easurement (mass/volume)Ordered By: Alfredo Phipps on 07-22-2023 Creatinine [Mass/Vol] 1.97 mg/dL 0.70-1.[address] [facility] Comment on above: The validity of the calculated GFR & GFRAA in patients over 70 years has not been determined. Clinical correlation is essential. Serum or plasma urea nitroge n measurement (mass/volume)Ordered By: Alfredo Phipps on 07-22-2023 Urea nitrogen [Mass/Vol] 21 mg/dL 7-18 [facility] Absolute lymphocyte countOrd ered By: Alfredo Phipps on 06-24-2023 Lymphocytes Auto (Unsp spec) [#/Vol] 2.04 10*3/uL 0.83-4.51 [facility] Basophil percentageOrdered B y: Alfredo Phipps on 06-24-2023 Basophil percentage 4.4 mg/dL 2.5-4.9 [facility] Basophils/100 WBC (Bld) 1.2 % 0-1 [facility] Chloride [Moles/Vol] 107 mmol/L 98-107 [facility] Eosinophils/100 WBC (Bld) 5.2 % 0-5 [facility] Glucose [Mass/Vol] 144 mg/dL 74-106 [facility] Comment on above: Fasting Glucose resu lt greater than or equal to 126 mg/dL suggests DIABETES MELLITUS per A.D.A. criteria. Neutrophils (Bld) [#/Vol] 5.9 10*3/uL 2.0-7.7 [facility] Neutrophils/100 WBC (Bld) 62.3 % 47-70 [facility] Potassium [Moles/Vol] 3.7 mmol/L 3.5-5.[address] [facility] Sodium [Moles/Vol] 138 mmol/L 136-145 [facility] WBC (Bld) [#/Vol] 9.4 10*3/uL 4.4-11.0 [facility] Blood erythrocytes count (nu mber/volume)Ordered By: Alfredo Phipps on 06-24-2023 RBC (Bld) [#/Vol] 4.95 10*6/uL 4.6-6.2 [facility] Blood hemoglobin measurement (mass/volume)Ordered By: Alfredo Phipps on 06-24-2023 Hemoglobin (Bld) [Mass/Vol] 14.2 g/dL 13.0-16.5 [facility] Blood lymphocytes/100 leukoc ytesOrdered By: Alfredo Phipps on 06-24-2023 Lymphocytes/100 WBC (Bld) 21.7 % 19-41 [facility] Blood monocytes/100 leukocyt esOrdered By: Alfredo Phipps on 06-24-2023 Monocytes/100 WBC (Bld) 9.1 % 0-10 [facility] Blood platelet mean volumeOr dered By: Alfredo Phipps on 06-24-2023 Platelet mean volume (Bld) [Entitic vol] 9.8 fL 6.2-12.0 [facility] Determination of erythrocyte mean corpuscular volume (MCV)Ordered By: Alfredo Phipps on 06-24-2023 MCV (RBC) [Entitic vol] 88.5 fL 80-94 [facility] Hematocrit Auto (Bld) [Volum e fraction]Ordered By: Alfredo Phipps on 06-24-2023 Hematocrit (Bld) [Volume fraction] 43.8 % 40-54 [facility] Laboratory - Chemistry and C hemistry - challengeOrdered By: Alfredo Phipps on 06-24-2023 CO2 [Moles/Vol] 25.0 mmol/L 21.0-32.0 [facility] Urea nitrogen/Creatinine [Mass ratio] 11.5 mg/mg 10-20 [facility] Laboratory - Hematology and Cell countsOrdered By: Alfredo Phipps on 06-24-2023 Erythrocyte distribution width (RBC) [Entitic vol] 42.3 fL 35.1-43.9 [facility] Erythrocyte distribution width (RBC) [Ratio] 13.1 % 11.6-14.6 [facility] Immature granulocytes/100 WBC (Bld) 0.500 % 0.0-0.9 [facility] Comment on above: IG% - Immature Granu locytes (promyelocytes, myelocytes and metamyelocytes) > 1% indicates that a LEFT SHIFT is Present. MCH (RBC) [Entitic mass] 28.7 pg 27.0-32.0 [facility] Nucleated RBC/100 WBC (Bld) [Ratio] 0 % 0-5 [facility] MCHC Auto (RBC) [Mass/Vol]Or dered By: Alfredo Phipps on 06-24-2023 MCHC (RBC) [Mass/Vol] 32.4 g/dL 32-[address] [facility] No Panel InformationOrdered By: Alfredo Phipps on 06-24-2023 Estimated GFR (MDRD) Amer 49 mL/min >60 [facility] Comment on above: GFR Calc Estimated GFR (MDRD) Non-Af Amer 40 mL/min >60 [facility] Comment on above: Non- GFR Calc [place] Level 0.60 mmol/L 0.60-1.20 [facility] Platelets bldOrdered By: Jennifer Phipps on 06-24-2023 Platelets (Bld) [#/Vol] 213 10*3/uL 150-450 [facility] Serum or plasma albumin you urement (mass/volume)Ordered By: Alfredo Phipps on 06-24-2023 Albumin [Mass/Vol] 2.9 g/dL 3.2-5.0 [facility] Serum or plasma calcium you urement (mass/volume)Ordered By: Alfredo Phipps on 06-24-2023 Calcium [Mass/Vol] 9.1 mg/dL 8.5-10.1 [facility] Serum or plasma creatinine m easurement (mass/volume)Ordered By: Alfredo Phipps on 06-24-2023 Creatinine [Mass/Vol] 1.83 mg/dL 0.70-1.[address] [facility] Comment on above: The validity of the calculated GFR & GFRAA in patients over 70 years has not been determined. Clinical correlation is essential. Serum or plasma urea nitroge n measurement (mass/volume)Ordered By: Alfredo Phipps on 06-24-2023 Urea nitrogen [Mass/Vol] 21 mg/dL 7-18 [facility] Serum or plasma uric acid me asurement (mass/volume)Ordered By: Alfredo Phipps on 06-24-2023 Urate [Mass/Vol] 6.5 mg/dL 3.5-7.2 [facility] Comment on above: The drugs N-Acetylcy steine and Metamizole may falsely depress this assay. Urine creatinine measurement (mass/volume)Ordered By: Alfredo Phipps on 06-24-2023 Creatinine (U) [Mass/Vol] 127.00 mg/dL NO RANGE EST. [facility] Urine protein measurement (m ass/volume)Ordered By: Alfredo Phipps on 06-24-2023 Protein (U) [Mass/Vol] 19.9 mg/dL 0.0-11.8 [facility] Urine protein/creatinine mas s ratioOrdered By: Alfredo Phipps on 06-24-2023 Protein/Creatinine (U) [Mass ratio] 157 mg/g CRE 0-200 [facility] Urine creatinine measurement (mass/volume)Ordered By: Adam Ferraro on 05-30-2023 Creatinine (U) [Mass/Vol] 73.90 mg/dL NO RANGE EST. [facility] Urine protein measurement (m ass/volume)Ordered By: Adam Freraro on 05-30-2023 Protein (U) [Mass/Vol] 18.0 mg/dL 0.0-11.8 [facility] Urine protein/creatinine mas s ratioOrdered By: Adam Ferraro on 05-30-2023 Protein/Creatinine (U) [Mass ratio] 244 mg/g CRE 0-200 [facility] Absolute lymphocyte countOrd ered By: Adam Ferraro on 05-27-2023 Lymphocytes Auto (Unsp spec) [#/Vol] 1.85 10*3/uL 0.83-4.51 [facility] Basophil percentageOrdered B y: Adam Ferraro on 05-27-2023 Basophil percentage 3.9 mg/dL 2.5-4.9 [facility] Basophils/100 WBC (Bld) 1.1 % 0-1 [facility] Chloride [Moles/Vol] 106 mmol/L 98-107 [facility] Eosinophils/100 WBC (Bld) 3.3 % 0-5 [facility] Glucose [Mass/Vol] 208 mg/dL 74-106 [facility] Comment on above: Glucose result great er than or equal to 200 mg/dLsuggests DIABETES MELLITUS per A.D.A. criteria. Neutrophils (Bld) [#/Vol] 5.6 10*3/uL 2.0-7.7 [facility] Neutrophils/100 WBC (Bld) 64.5 % 47-70 [facility] Potassium [Moles/Vol] 3.7 mmol/L 3.5-5.[address] [facility] Sodium [Moles/Vol] 138 mmol/L 136-145 [facility] WBC (Bld) [#/Vol] 8.7 10*3/uL 4.4-11.0 [facility] Blood erythrocytes count (nu mber/volume)Ordered By: Adam Ferraro on 05-27-2023 RBC (Bld) [#/Vol] 4.98 10*6/uL 4.6-6.2 [facility] Blood hemoglobin measurement (mass/volume)Ordered By: Adam Ferraro on 05-27-2023 Hemoglobin (Bld) [Mass/Vol] 14.4 g/dL 13.0-16.5 [facility] Blood lymphocytes/100 leukoc ytesOrdered By: Adam Ferraro on 05-27-2023 Lymphocytes/100 WBC (Bld) 21.2 % 19-41 [facility] Blood monocytes/100 leukocyt esOrdered By: Adam Ferraro on 05-27-2023 Monocytes/100 WBC (Bld) 9.3 % 0-10 [facility] Blood platelet mean volumeOr dered By: Adam Ferrrao on 05-27-2023 Platelet mean volume (Bld) [Entitic vol] 10.0 fL 6.2-12.0 [facility] Determination of erythrocyte mean corpuscular volume (MCV)Ordered By: Adam Ferraro on 05-27-2023 MCV (RBC) [Entitic vol] 89.6 fL 80-94 [facility] Hematocrit Auto (Bld) [Volum e fraction]Ordered By: Adam Ferraro on 05-27-2023 Hematocrit (Bld) [Volume fraction] 44.6 % 40-54 [facility] Laboratory - Chemistry and C hemistry - challengeOrdered By: Adam Ferraro on 05-27-2023 CO2 [Moles/Vol] 27.0 mmol/L 21.0-32.0 [facility] Urea nitrogen/Creatinine [Mass ratio] 11.5 mg/mg 10-20 [facility] Laboratory - Hematology and Cell countsOrdered By: Adam Ferraro on 05-27-2023 Erythrocyte distribution width (RBC) [Entitic vol] 42.2 fL 35.1-43.9 [facility] Erythrocyte distribution width (RBC) [Ratio] 13.0 % 11.6-14.6 [facility] Immature granulocytes/100 WBC (Bld) 0.600 % 0.0-0.9 [facility] Comment on above: IG% - Immature Granu locytes (promyelocytes, myelocytes and metamyelocytes) > 1% indicates that a LEFT SHIFT is Present. MCH (RBC) [Entitic mass] 28.9 pg 27.0-32.0 [facility] Nucleated RBC/100 WBC (Bld) [Ratio] 0 % 0-5 [facility] MCHC Auto (RBC) [Mass/Vol]Or dered By: Adam Ferraro on 05-27-2023 MCHC (RBC) [Mass/Vol] 32.3 g/dL 32-[address] [facility] No Panel InformationOrdered By: Adam Ferraro on 05-27-2023 Estimated GFR (MDRD) Amer 52 mL/min >60 [facility] Comment on above: GFR Calc Estimated GFR (MDRD) Non-Af Amer 43 mL/min >60 [facility] Comment on above: Non- GFR Calc [place] Level 0.40 mmol/L 0.60-1.20 [facility] Platelets bldOrdered By: Benoit loni Jasmine on 05-27-2023 Platelets (Bld) [#/Vol] 211 10*3/uL 150-450 [facility] Serum or plasma albumin you urement (mass/volume)Ordered By: Adam Ferraro on 05-27-2023 Albumin [Mass/Vol] 2.9 g/dL 3.2-5.0 [facility] Serum or plasma calcium you urement (mass/volume)Ordered By: Adam Ferraro on 05-27-2023 Calcium [Mass/Vol] 9.2 mg/dL 8.5-10.1 [facility] Serum or plasma creatinine m easurement (mass/volume)Ordered By: Adam Ferraro on 05-27-2023 Creatinine [Mass/Vol] 1.74 mg/dL 0.70-1.[address] [facility] Comment on above: The validity of the calculated GFR & GFRAA in patients over 70 years has not been determined. Clinical correlation is essential. Serum or plasma urea nitroge n measurement (mass/volume)Ordered By: Adam Ferraro on 05-27-2023 Urea nitrogen [Mass/Vol] 20 mg/dL 7-18 [facility] Serum or plasma uric acid me asurement (mass/volume)Ordered By: Adam Ferraro on 05-27-2023 Urate [Mass/Vol] 4.9 mg/dL 3.5-7.2 [facility] Comment on above: The drugs N-Acetylcy steine and Metamizole may falsely depress this assay. Whole blood hemoglobin A1c/t otal hemoglobin ratio (mass fraction)Ordered By: Adam Ferraro on 05-19-2023 HbA1c (Bld) [Mass fraction] 11.1 % 3.8-5.6 [facility] Comment on above: Normal < 5.7 % Predi abetic 5.7 - 6.4 % Diabetic >or= 6.5 % Please note range changes. Absolute lymphocyte countOrd ered By: Alfredo Phipps on 04-29-2023 Lymphocytes Auto (Unsp spec) [#/Vol] 1.98 10*3/uL 0.83-4.51 [facility] Basophil percentageOrdered B y: Alfredo Phipps on 04-29-2023 Basophil percentage 3.6 mg/dL 2.5-4.9 [facility] Basophils/100 WBC (Bld) 1.0 % 0-1 [facility] Chloride [Moles/Vol] 105 mmol/L 98-107 [facility] Eosinophils/100 WBC (Bld) 2.7 % 0-5 [facility] Glucose [Mass/Vol] 300 mg/dL 74-106 [facility] Comment on above: Glucose result great er than or equal to 200 mg/dLsuggests DIABETES MELLITUS per A.D.A. criteria. Neutrophils (Bld) [#/Vol] 5.7 10*3/uL 2.0-7.7 [facility] Neutrophils/100 WBC (Bld) 64.2 % 47-70 [facility] Potassium [Moles/Vol] 3.9 mmol/L 3.5-5.[address] [facility] Sodium [Moles/Vol] 138 mmol/L 136-145 [facility] WBC (Bld) [#/Vol] 8.9 10*3/uL 4.4-11.0 [facility] Blood erythrocytes count (nu mber/volume)Ordered By: Alfredo Phipps on 04-29-2023 RBC (Bld) [#/Vol] 4.74 10*6/uL 4.6-6.2 [facility] Blood hemoglobin measurement (mass/volume)Ordered By: Alfredo Phipps on 04-29-2023 Hemoglobin (Bld) [Mass/Vol] 13.6 g/dL 13.0-16.5 [facility] Blood lymphocytes/100 leukoc ytesOrdered By: Alfredo Phipps on 04-29-2023 Lymphocytes/100 WBC (Bld) 22.2 % 19-41 [facility] Blood monocytes/100 leukocyt esOrdered By: Alfredo Phipps on 04-29-2023 Monocytes/100 WBC (Bld) 9.2 % 0-10 [facility] Blood platelet mean volumeOr dered By: Alfredo Phipps on 04-29-2023 Platelet mean volume (Bld) [Entitic vol] 9.7 fL 6.2-12.0 [facility] Determination of erythrocyte mean corpuscular volume (MCV)Ordered By: Alfredo Phipps on 04-29-2023 MCV (RBC) [Entitic vol] 87.8 fL 80-94 [facility] Hematocrit Auto (Bld) [Volum e fraction]Ordered By: Alfredo Phipps on 04-29-2023 Hematocrit (Bld) [Volume fraction] 41.6 % 40-54 [facility] Laboratory - Chemistry and C hemistry - challengeOrdered By: Alfredo Phipps on 04-29-2023 CO2 [Moles/Vol] 24.0 mmol/L 21.0-32.0 [facility] Urea nitrogen/Creatinine [Mass ratio] 13.7 mg/mg 10-20 [facility] Laboratory - Hematology and Cell countsOrdered By: Alfredo Phipps on 04-29-2023 Erythrocyte distribution width (RBC) [Entitic vol] 41.7 fL 35.1-43.9 [facility] Erythrocyte distribution width (RBC) [Ratio] 12.9 % 11.6-14.6 [facility] Immature granulocytes/100 WBC (Bld) 0.700 % 0.0-0.9 [facility] Comment on above: IG% - Immature Granu locytes (promyelocytes, myelocytes and metamyelocytes) > 1% indicates that a LEFT SHIFT is Present. MCH (RBC) [Entitic mass] 28.7 pg 27.0-32.0 [facility] Nucleated RBC/100 WBC (Bld) [Ratio] 0 % 0-5 [facility] MCHC Auto (RBC) [Mass/Vol]Or dered By: Alfredo Phipps on 04-29-2023 MCHC (RBC) [Mass/Vol] 32.7 g/dL 32-[address] [facility] No Panel InformationOrdered By: Alfredo Phipps on 04-29-2023 Estimated GFR (MDRD) Amer 51 mL/min >60 [facility] Comment on above: GFR Calc Estimated GFR (MDRD) Non-Af Amer 43 mL/min >60 [facility] Comment on above: Non- GFR Calc [place] Level 0.40 mmol/L 0.60-1.20 [facility] Platelets bldOrdered By: Jennifer Phipps on 06-16-2023 Platelets (Bld) [#/Vol] 204 10*3/uL 150-450 [facility] Serum or plasma albumin you urement (mass/volume)Ordered By: Alfredo Phipps on 04-29-2023 Albumin [Mass/Vol] 2.7 g/dL 3.2-5.0 [facility] Serum or plasma calcium you urement (mass/volume)Ordered By: Alfredo Phipps on 04-29-2023 Calcium [Mass/Vol] 8.9 mg/dL 8.5-10.1 [facility] Serum or plasma creatinine m easurement (mass/volume)Ordered By: Alfredo Phipps on 04-29-2023 Creatinine [Mass/Vol] 1.75 mg/dL 0.70-1.[address] [facility] Comment on above: The validity of the calculated GFR & GFRAA in patients over 70 years has not been determined. Clinical correlation is essential. Serum or plasma urea nitroge n measurement (mass/volume)Ordered By: Alfredo Phipps on 04-29-2023 Urea nitrogen [Mass/Vol] 24 mg/dL 7-18 [facility] Serum or plasma uric acid me asurement (mass/volume)Ordered By: Alfredo Phipps on 04-27-2023 Urate [Mass/Vol] 4.8 mg/dL 3.5-7.2 [facility] Comment on above: The drugs N-Acetylcy steine and Metamizole may falsely depress this assay. Urine creatinine measurement (mass/volume)Ordered By: Adam Ferraro on 04-04-2023 Creatinine (U) [Mass/Vol] 96.50 mg/dL NO RANGE EST. [facility] Urine protein measurement (m ass/volume)Ordered By: Adam Ferraro on 04-04-2023 Protein (U) [Mass/Vol] 26.4 mg/dL 0.0-11.8 [facility] Urine protein/creatinine mas s ratioOrdered By: Adam Ferraro on 04-04-2023 Protein/Creatinine (U) [Mass ratio] 274 mg/g CRE 0-200 [facility] Absolute lymphocyte countOrd ered By: Adam Ferraro on 04-01-2023 Lymphocytes Auto (Unsp spec) [#/Vol] 1.91 10*3/uL 0.83-4.51 [facility] Basophil percentageOrdered B y: Adam Ferraro on 04-01-2023 Basophil percentage 3.3 mg/dL 2.5-4.9 [facility] Basophils/100 WBC (Bld) 1.1 % 0-1 [facility] Chloride [Moles/Vol] 105 mmol/L 98-107 [facility] Eosinophils/100 WBC (Bld) 2.7 % 0-5 [facility] Glucose [Mass/Vol] 317 mg/dL 74-106 [facility] Comment on above: Glucose result great er than or equal to 200 mg/dLsuggests DIABETES MELLITUS per A.D.A. criteria. Neutrophils (Bld) [#/Vol] 5.4 10*3/uL 2.0-7.7 [facility] Neutrophils/100 WBC (Bld) 64.7 % 47-70 [facility] Potassium [Moles/Vol] 3.8 mmol/L 3.5-5.[address] [facility] Sodium [Moles/Vol] 137 mmol/L 136-145 [facility] WBC (Bld) [#/Vol] 8.4 10*3/uL 4.4-11.0 [facility] Blood erythrocytes count (nu mber/volume)Ordered By: Adam Ferraro on 04-01-2023 RBC (Bld) [#/Vol] 5.17 10*6/uL 4.6-6.2 [facility] Blood hemoglobin measurement (mass/volume)Ordered By: Adam Ferraro on 04-01-2023 Hemoglobin (Bld) [Mass/Vol] 14.7 g/dL 13.0-16.5 [facility] Blood lymphocytes/100 leukoc ytesOrdered By: Adam Ferraro on 04-01-2023 Lymphocytes/100 WBC (Bld) 22.7 % 19-41 [facility] Blood monocytes/100 leukocyt esOrdered By: Adam Ferraro on 04-01-2023 Monocytes/100 WBC (Bld) 8.2 % 0-10 [facility] Blood platelet mean volumeOr dered By: Adam Ferraro on 04-01-2023 Platelet mean volume (Bld) [Entitic vol] 9.8 fL 6.2-12.0 [facility] Determination of erythrocyte mean corpuscular volume (MCV)Ordered By: Adam Ferraro on 04-01-2023 MCV (RBC) [Entitic vol] 88.6 fL 80-94 [facility] Hematocrit Auto (Bld) [Volum e fraction]Ordered By: Adam Ferraro on 04-01-2023 Hematocrit (Bld) [Volume fraction] 45.8 % 40-54 [facility] Laboratory - Chemistry and C hemistry - challengeOrdered By: Adam Ferraro on 04-01-2023 CO2 [Moles/Vol] 25.0 mmol/L 21.0-32.0 [facility] Urea nitrogen/Creatinine [Mass ratio] 13.7 mg/mg 10-20 [facility] - Hematology and Cell countsOrdered By: Adam Ferraro on 04-01-2023 Erythrocyte distribution width (RBC) [Entitic vol] 42.5 fL 35.1-43.9 [facility] Erythrocyte distribution width (RBC) [Ratio] 13.1 % 11.6-14.6 [facility] Immature granulocytes/100 WBC (Bld) 0.600 % 0.0-0.9 [facility] Comment on above: IG% - Immature Granu locytes (promyelocytes, myelocytes and metamyelocytes) > 1% indicates that a LEFT SHIFT is Present. MCH (RBC) [Entitic mass] 28.4 pg 27.0-32.0 [facility] Nucleated RBC/100 WBC (Bld) [Ratio] 0 % 0-5 [facility] MCHC Auto (RBC) [Mass/Vol]Or dered By: Adam Ferraro on 04-01-2023 MCHC (RBC) [Mass/Vol] 32.1 g/dL 32-[address] [facility] No Panel InformationOrdered By: Adam Ferraro on 04-01-2023 Estimated GFR (MDRD) Amer 49 mL/min >60 [facility] Comment on above: GFR Calc Estimated GFR (MDRD) Non-Af Amer 41 mL/min >60 [facility] Comment on above: Non- GFR Calc [place] Level < 0.20 mmol/L 0.60-1.20 [facility] Platelets bldOrdered By: Benoit Ferraro on 04-01-2023 Platelets (Bld) [#/Vol] 209 10*3/uL 150-450 [facility] Serum or plasma albumin you urement (mass/volume)Ordered By: Adam Ferraro on 04-01-2023 Albumin [Mass/Vol] 3.0 g/dL 3.2-5.0 [facility] Serum or plasma calcium you urement (mass/volume)Ordered By: Adam Ferraro on 04-01-2023 Calcium [Mass/Vol] 8.9 mg/dL 8.5-10.1 [facility] Serum or plasma creatinine m easurement (mass/volume)Ordered By: Adam Ferraro on 04-01-2023 Creatinine [Mass/Vol] 1.82 mg/dL 0.70-1.[address] [facility] Comment on above: The validity of the calculated GFR & GFRAA in patients over 70 years has not been determined. Clinical correlation is essential. Serum or plasma urea nitroge n measurement (mass/volume)Ordered By: Adam Ferraro on 04-01-2023 Urea nitrogen [Mass/Vol] 25 mg/dL 7-18 [facility] Absolute lymphocyte countOrd ered By: Alfredo Phipps on 03-04-2023 Lymphocytes Auto (Unsp spec) [#/Vol] 2.18 10*3/uL 0.83-4.51 [facility] Basophil percentageOrdered B y: Alfredo Phipps on 03-04-2023 Basophil percentage 3.9 mg/dL 2.5-4.9 [facility] Basophils/100 WBC (Bld) 0.9 % 0-1 [facility] Chloride [Moles/Vol] 109 mmol/L 98-107 [facility] Eosinophils/100 WBC (Bld) 3.5 % 0-5 [facility] Glucose [Mass/Vol] 179 mg/dL 74-106 [facility] Comment on above: Fasting Glucose resu lt greater than or equal to 126 mg/dL suggests DIABETES MELLITUS per A.D.A. criteria. Neutrophils (Bld) [#/Vol] 6.1 10*3/uL 2.0-7.7 [facility] Neutrophils/100 WBC (Bld) 63.2 % 47-70 [facility] Potassium [Moles/Vol] 3.9 mmol/L 3.5-5.[address] [facility] Sodium [Moles/Vol] 138 mmol/L 136-145 [facility] WBC (Bld) [#/Vol] 9.6 10*3/uL 4.4-11.0 [facility] Blood erythrocytes count (nu mber/volume)Ordered By: Alfredo Phipps on 03-04-2023 RBC (Bld) [#/Vol] 4.74 10*6/uL 4.6-6.2 [facility] Blood hemoglobin measurement (mass/volume)Ordered By: Alfredo Phipps on 03-04-2023 Hemoglobin (Bld) [Mass/Vol] 13.6 g/dL 13.0-16.5 [facility] Blood lymphocytes/100 leukoc ytesOrdered By: Alfredo Phipps on 03-04-2023 Lymphocytes/100 WBC (Bld) 22.6 % 19-41 [facility] Blood monocytes/100 leukocyt esOrdered By: Alfredo Phipps on 03-04-2023 Monocytes/100 WBC (Bld) 9.4 % 0-10 [facility] Blood platelet mean volumeOr dered By: Alfredo Phipps on 03-04-2023 Platelet mean volume (Bld) [Entitic vol] 9.7 fL 6.2-12.0 [facility] Determination of erythrocyte mean corpuscular volume (MCV)Ordered By: Alfredo Phipps on 03-04-2023 MCV (RBC) [Entitic vol] 90.3 fL 80-94 [facility] Hematocrit Auto (Bld) [Volum e fraction]Ordered By: Alfredo Phipps on 03-04-2023 Hematocrit (Bld) [Volume fraction] 42.8 % 40-54 [facility] Laboratory - Chemistry and C hemistry - challengeOrdered By: Alfredo Phipps on 03-04-2023 CO2 [Moles/Vol] 26.0 mmol/L 21.0-32.0 [facility] Urea nitrogen/Creatinine [Mass ratio] 13.9 mg/mg 10-20 [facility] Laboratory - Hematology and Cell countsOrdered By: Alfredo Phipps on 03-04-2023 Erythrocyte distribution width (RBC) [Entitic vol] 42.8 fL 35.1-43.9 [facility] Erythrocyte distribution width (RBC) [Ratio] 12.9 % 11.6-14.6 [facility] Immature granulocytes/100 WBC (Bld) 0.400 % 0.0-0.9 [facility] Comment on above: IG% - Immature Granu locytes (promyelocytes, myelocytes and metamyelocytes) > 1% indicates that a LEFT SHIFT is Present. MCH (RBC) [Entitic mass] 28.7 pg 27.0-32.0 [facility] Nucleated RBC/100 WBC (Bld) [Ratio] 0 % 0-5 [facility] MCHC Auto (RBC) [Mass/Vol]Or dered By: Alfredo Phipps on 03-04-2023 MCHC (RBC) [Mass/Vol] 31.8 g/dL 32-[address] [facility] No Panel InformationOrdered By: Alfredo Phipps on 03-04-2023 Estimated GFR (MDRD) Amer 55 mL/min >60 [facility] Comment on above: GFR Calc Estimated GFR (MDRD) Non-Af Amer 46 mL/min >60 [facility] Comment on above: Non- GFR Calc [place] Level 0.40 mmol/L 0.60-1.20 [facility] Platelets bldOrdered By: Jennifer Phipps on 03-04-2023 Platelets (Bld) [#/Vol] 207 10*3/uL 150-450 [facility] Serum or plasma albumin you urement (mass/volume)Ordered By: Alfredo Phipps on 03-04-2023 Albumin [Mass/Vol] 2.8 g/dL 3.2-5.0 [facility] Serum or plasma calcium you urement (mass/volume)Ordered By: Alfredo Phipps on 03-04-2023 Calcium [Mass/Vol] 9.2 mg/dL 8.5-10.1 [facility] Serum or plasma creatinine m easurement (mass/volume)Ordered By: Alfredo Phipps on 03-04-2023 Creatinine [Mass/Vol] 1.65 mg/dL 0.70-1.[address] [facility] Comment on above: The validity of the calculated GFR & GFRAA in patients over 70 years has not been determined. Clinical correlation is essential. Serum or plasma urea nitroge n measurement (mass/volume)Ordered By: Alfredo Phipps on 03-04-2023 Urea nitrogen [Mass/Vol] 23 mg/dL 7-18 [facility] Serum or plasma uric acid me asurement (mass/volume)Ordered By: Alfredo Phipps on 02-25-2023 Urate [Mass/Vol] 5.6 mg/dL 3.5-7.2 [facility] Comment on above: The drugs N-Acetylcy steine and Metamizole may falsely depress this assay. Absolute lymphocyte countOrd ered By: Alfredo Phipps on 02-04-2023 Lymphocytes Auto (Unsp spec) [#/Vol] 2.03 10*3/uL 0.83-4.51 [facility] Basophil percentageOrdered B y: Alfredo Phipps on 02-04-2023 Basophil percentage 4.3 mg/dL 2.5-4.9 [facility] Basophils/100 WBC (Bld) 1.2 % 0-1 [facility] Chloride [Moles/Vol] 108 mmol/L 98-107 [facility] Eosinophils/100 WBC (Bld) 3.6 % 0-5 [facility] Glucose [Mass/Vol] 193 mg/dL 74-106 [facility] Comment on above: Fasting Glucose resu lt greater than or equal to 126 mg/dL suggests DIABETES MELLITUS per A.D.A. criteria. Neutrophils (Bld) [#/Vol] 6.1 10*3/uL 2.0-7.7 [facility] Neutrophils/100 WBC (Bld) 63.9 % 47-70 [facility] Potassium [Moles/Vol] 4.0 mmol/L 3.5-5.[address] [facility] Sodium [Moles/Vol] 139 mmol/L 136-145 [facility] WBC (Bld) [#/Vol] 9.5 10*3/uL 4.4-11.0 [facility] Blood erythrocytes count (nu mber/volume)Ordered By: Alfredo Phipps on 02-04-2023 RBC (Bld) [#/Vol] 4.81 10*6/uL 4.6-6.2 [facility] Blood hemoglobin measurement (mass/volume)Ordered By: Alfredo Phipps on 03-24-2023 Hemoglobin (Bld) [Mass/Vol] 13.9 g/dL 13.0-16.5 [facility] Blood lymphocytes/100 leukoc ytesOrdered By: Alfredo Phipps on 02-04-2023 Lymphocytes/100 WBC (Bld) 21.4 % 19-41 [facility] Blood monocytes/100 leukocyt esOrdered By: Alfredo Phipps on 02-04-2023 Monocytes/100 WBC (Bld) 9.2 % 0-10 [facility] Blood platelet mean volumeOr dered By: Alfredo Phipps on 02-04-2023 Platelet mean volume (Bld) [Entitic vol] 9.4 fL 6.2-12.0 [facility] Determination of erythrocyte mean corpuscular volume (MCV)Ordered By: Alfredo Phipps on 02-04-2023 MCV (RBC) [Entitic vol] 94.2 fL 80-94 [facility] Hematocrit Auto (Bld) [Volum e fraction]Ordered By: Alfredo Phipps on 02-04-2023 Hematocrit (Bld) [Volume fraction] 45.3 % 40-54 [facility] Laboratory - Chemistry and C hemistry - challengeOrdered By: Alfredo Phipps on 02-04-2023 CO2 [Moles/Vol] 24.0 mmol/L 21.0-32.0 [facility] Urea nitrogen/Creatinine [Mass ratio] 14.6 mg/mg 10-20 [facility] Laboratory - Hematology and Cell countsOrdered By: Alfredo Phipps on 02-04-2023 Erythrocyte distribution width (RBC) [Entitic vol] 45.1 fL 35.1-43.9 [facility] Erythrocyte distribution width (RBC) [Ratio] 13.1 % 11.6-14.6 [facility] Immature granulocytes/100 WBC (Bld) 0.700 % 0.0-0.9 [facility] Comment on above: IG% - Immature Granu locytes (promyelocytes, myelocytes and metamyelocytes) > 1% indicates that a LEFT SHIFT is Present. MCH (RBC) [Entitic mass] 28.9 pg 27.0-32.0 [facility] Nucleated RBC/100 WBC (Bld) [Ratio] 0 % 0-5 [facility] MCHC Auto (RBC) [Mass/Vol]Or dered By: Alfredo Phipps on 02-04-2023 MCHC (RBC) [Mass/Vol] 30.7 g/dL 32-[address] [facility] No Panel InformationOrdered By: Alrfedo Phipps on 02-04-2023 Estimated GFR (MDRD) Amer 53 mL/min >60 [facility] Comment on above: GFR Calc Estimated GFR (MDRD) Non-Af Amer 44 mL/min >60 [facility] Comment on above: Non- GFR Calc [place] Level 0.50 mmol/L 0.60-1.20 [facility] Platelets bldOrdered By: Pet er Desire on 02-04-2023 Platelets (Bld) [#/Vol] 182 10*3/uL 150-450 [facility] Serum or plasma albumin you urement (mass/volume)Ordered By: Alfredo Phipps on 02-04-2023 Albumin [Mass/Vol] 2.9 g/dL 3.2-5.0 [facility] Serum or plasma calcium you urement (mass/volume)Ordered By: Alfredo Phipps on 02-04-2023 Calcium [Mass/Vol] 8.9 mg/dL 8.5-10.1 [facility] Serum or plasma creatinine m easurement (mass/volume)Ordered By: Alfredo Phipps on 02-04-2023 Creatinine [Mass/Vol] 1.71 mg/dL 0.70-1.[address] [facility] Comment on above: The validity of the calculated GFR & GFRAA in patients over 70 years has not been determined. Clinical correlation is essential. Serum or plasma urea nitroge n measurement (mass/volume)Ordered By: Alfredo Phipps on 02-04-2023 Urea nitrogen [Mass/Vol] 25 mg/dL 7-18 [facility] Serum or plasma uric acid me asurement (mass/volume)Ordered By: Adam Ferraro on 01-25-2023 Urate [Mass/Vol] 5.8 mg/dL 3.5-7.2 [facility] Comment on above: The drugs N-Acetylcy steine and Metamizole may falsely depress this assay. Basophil percentageOrdered B y: Alfredo Phipps on 01-19-2023 Cholesterol [Mass/Vol] 160 mg/dL <200 [facility] Comment on above: <200 mg/dL Desirable 200-240 [...] Cholesterol in HDL [Mass/Vol] 38 mg/dL >40 [facility] Comment on above: The drugs N-Acetylcy steine and Metamizole may falsely depress this assay. Reference Range HDL <40 mg/dL Low HDL Cholesterol HDL >or= 60 mg/dL High HDL Cholesterol Serum or plasma cholesterol in VLDL measurement (mass/volume)Ordered By: Alfredo Phipps on 01-19-2023 Cholesterol in VLDL [Mass/Vol] 64 mg/dL 5-40 [facility] Serum or plasma low density lipoprotein (LDL) cholesterol measurement (mass/volume)Ordered By: Alfredo Phipps on 01-19-2023 Cholesterol in LDL [Mass/Vol] 58 mg/dL 0-130 [facility] Absolute lymphocyte countOrd ered By: Alfredo Phipps on 01-07-2023 Lymphocytes Auto (Unsp spec) [#/Vol] 2.02 10*3/uL 0.83-4.51 [facility] Basophil percentageOrdered B y: Alfredo Phipps on 01-07-2023 Basophil percentage 3.6 mg/dL 2.5-4.9 [facility] Basophils/100 WBC (Bld) 1.0 % 0-1 [facility] Chloride [Moles/Vol] 109 mmol/L 98-107 [facility] Eosinophils/100 WBC (Bld) 2.8 % 0-5 [facility] Glucose [Mass/Vol] 236 mg/dL 74-106 [facility] Comment on above: Glucose result great er than or equal to 200 mg/dLsuggests DIABETES MELLITUS per A.D.A. criteria. Neutrophils (Bld) [#/Vol] 5.8 10*3/uL 2.0-7.7 [facility] Neutrophils/100 WBC (Bld) 62.2 % 47-70 [facility] Potassium [Moles/Vol] 4.1 mmol/L 3.5-5.[address] [facility] Sodium [Moles/Vol] 141 mmol/L 136-145 [facility] WBC (Bld) [#/Vol] 9.3 10*3/uL 4.4-11.0 [facility] Blood erythrocytes count (nu mber/volume)Ordered By: Alfredo Phipps on 01-07-2023 RBC (Bld) [#/Vol] 4.67 10*6/uL 4.6-6.2 [facility] Blood hemoglobin measurement (mass/volume)Ordered By: Alfredo Phipps on 01-07-2023 Hemoglobin (Bld) [Mass/Vol] 13.5 g/dL 13.0-16.5 [facility] Blood lymphocytes/100 leukoc ytesOrdered By: Alfredo Phipps on 01-07-2023 Lymphocytes/100 WBC (Bld) 21.8 % 19-41 [facility] Blood monocytes/100 leukocyt esOrdered By: Alfredo Phipps on 01-07-2023 Monocytes/100 WBC (Bld) 11.6 % 0-10 [facility] Blood platelet mean volumeOr dered By: Alfredo Phipps on 01-07-2023 Platelet mean volume (Bld) [Entitic vol] 9.8 fL 6.2-12.0 [facility] Determination of erythrocyte mean corpuscular volume (MCV)Ordered By: Alfredo Phipps on 01-07-2023 MCV (RBC) [Entitic vol] 89.7 fL 80-94 [facility] Hematocrit Auto (Bld) [Volum e fraction]Ordered By: Alfredo Phipps on 01-07-2023 Hematocrit (Bld) [Volume fraction] 41.9 % 40-54 [facility] Laboratory - Chemistry and C hemistry - challengeOrdered By: Alfredo Phipps on 01-07-2023 CO2 [Moles/Vol] 26.0 mmol/L 21.0-32.0 [facility] Urea nitrogen/Creatinine [Mass ratio] 13.4 mg/mg 10-20 [facility] Laboratory - Hematology and Cell countsOrdered By: Alfredo Phipps on 01-07-2023 Erythrocyte distribution width (RBC) [Entitic vol] 42.5 fL 35.1-43.9 [facility] Erythrocyte distribution width (RBC) [Ratio] 13.1 % 11.6-14.6 [facility] Immature granulocytes/100 WBC (Bld) 0.600 % 0.0-0.9 [facility] Comment on above: IG% - Immature Granu locytes (promyelocytes, myelocytes and metamyelocytes) > 1% indicates that a LEFT SHIFT is Present. MCH (RBC) [Entitic mass] 28.9 pg 27.0-32.0 [facility] Nucleated RBC/100 WBC (Bld) [Ratio] 0 % 0-5 [facility] MCHC Auto (RBC) [Mass/Vol]Or dered By: Alfredo Phipps on 01-07-2023 MCHC (RBC) [Mass/Vol] 32.2 g/dL 32-[address] [facility] No Panel InformationOrdered By: Alfredo Phipps on 01-07-2023 Estimated GFR (MDRD) Amer 48 mL/min >60 [facility] Comment on above: GFR Calc Estimated GFR (MDRD) Non-Af Amer 40 mL/min >60 [facility] Comment on above: Non- GFR Calc [place] Level 0.30 mmol/L 0.60-1.20 [facility] Platelets bldOrdered By: Jennifer Phipps on 01-07-2023 Platelets (Bld) [#/Vol] 203 10*3/uL 150-450 [facility] Serum or plasma albumin you urement (mass/volume)Ordered By: Alfredo Phipps on 01-07-2023 Albumin [Mass/Vol] 2.9 g/dL 3.2-5.0 [facility] Serum or plasma calcium you urement (mass/volume)Ordered By: Alfredo Phipps on 01-07-2023 Calcium [Mass/Vol] 9.0 mg/dL 8.5-10.1 [facility] Serum or plasma creatinine m easurement (mass/volume)Ordered By: Alfredo Phipps on 01-07-2023 Creatinine [Mass/Vol] 1.86 mg/dL 0.70-1.[address] [facility] Comment on above: The validity of the calculated GFR & GFRAA in patients over 70 years has not been determined. Clinical correlation is essential. Serum or plasma urea nitroge n measurement (mass/volume)Ordered By: Alfredo Phipps on 01-07-2023 Urea nitrogen [Mass/Vol] 25 mg/dL 7-18 [facility] Serum or plasma uric acid me asurement (mass/volume)Ordered By: Adam Ferraro on 12-28-2022 Urate [Mass/Vol] 5.9 mg/dL 3.5-7.2 [facility] Comment on above: The drugs N-Acetylcy steine and Metamizole may falsely depress this assay. Urine creatinine measurement (mass/volume)Ordered By: Adam Ferraro on 12-15-2022 Creatinine (U) [Mass/Vol] 141.00 mg/dL NO RANGE EST. [facility] Urine protein measurement (m ass/volume)Ordered By: Adam Ferraro on 12-15-2022 Protein (U) [Mass/Vol] 29.9 mg/dL 0.0-11.8 [facility] Urine protein/creatinine mas s ratioOrdered By: Adam Ferraro on 12-15-2022 Protein/Creatinine (U) [Mass ratio] 212 mg/g CRE 0-200 [facility] Absolute lymphocyte countOrd ered By: Adam Ferraro on 12-10-2022 Lymphocytes Auto (Unsp spec) [#/Vol] 1.96 10*3/uL 0.83-4.51 [facility] Basophil percentageOrdered B y: Adam Ferraro on 12-10-2022 Basophil percentage 4.0 mg/dL 2.5-4.9 [facility] Basophils/100 WBC (Bld) 1.2 % 0-1 [facility] Chloride [Moles/Vol] 106 mmol/L 98-107 [facility] Eosinophils/100 WBC (Bld) 3.6 % 0-5 [facility] Glucose [Mass/Vol] 155 mg/dL 74-106 [facility] Comment on above: Fasting Glucose resu lt greater than or equal to 126 mg/dL suggests DIABETES MELLITUS per A.D.A. criteria. Neutrophils (Bld) [#/Vol] 4.9 10*3/uL 2.0-7.7 [facility] Neutrophils/100 WBC (Bld) 60.1 % 47-70 [facility] Potassium [Moles/Vol] 4.1 mmol/L 3.5-5.[address] [facility] Sodium [Moles/Vol] 140 mmol/L 136-145 [facility] WBC (Bld) [#/Vol] 8.1 10*3/uL 4.4-11.0 [facility] Blood erythrocytes count (nu mber/volume)Ordered By: Adam Ferraro on 12-10-2022 RBC (Bld) [#/Vol] 4.96 10*6/uL 4.6-6.2 [facility] Blood hemoglobin measurement (mass/volume)Ordered By: Adam Ferraro on 12-10-2022 Hemoglobin (Bld) [Mass/Vol] 14.4 g/dL 13.0-16.5 [facility] Blood lymphocytes/100 leukoc ytesOrdered By: Adam Ferraro on 12-10-2022 Lymphocytes/100 WBC (Bld) 24.1 % 19-41 [facility] Blood monocytes/100 leukocyt esOrdered By: Adam Ferraro on 12-10-2022 Monocytes/100 WBC (Bld) 10.6 % 0-10 [facility] Blood platelet mean volumeOr dered By: Adam Ferraro on 12-10-2022 Platelet mean volume (Bld) [Entitic vol] 9.8 fL 6.2-12.0 [facility] Determination of erythrocyte mean corpuscular volume (MCV)Ordered By: Adam Ferraro on 12-10-2022 MCV (RBC) [Entitic vol] 89.5 fL 80-94 [facility] Hematocrit Auto (Bld) [Volum e fraction]Ordered By: Adam Ferraro on 12-10-2022 Hematocrit (Bld) [Volume fraction] 44.4 % 40-54 [facility] Laboratory - Chemistry and C hemistry - challengeOrdered By: Adam Ferraro on 12-10-2022 CO2 [Moles/Vol] 26.0 mmol/L 21.0-32.0 [facility] Urea nitrogen/Creatinine [Mass ratio] 10.1 mg/mg 10-20 [facility] Laboratory - Hematology and Cell countsOrdered By: Adam Ferraro on 12-10-2022 Erythrocyte distribution width (RBC) [Entitic vol] 42.6 fL 35.1-43.9 [facility] Erythrocyte distribution width (RBC) [Ratio] 13.0 % 11.6-14.6 [facility] Immature granulocytes/100 WBC (Bld) 0.400 % 0.0-0.9 [facility] Comment on above: IG% - Immature Granu locytes (promyelocytes, myelocytes and metamyelocytes) > 1% indicates that a LEFT SHIFT is Present. MCH (RBC) [Entitic mass] 29.0 pg 27.0-32.0 [facility] Nucleated RBC/100 WBC (Bld) [Ratio] 0 % 0-5 [facility] MCHC Auto (RBC) [Mass/Vol]Or dered By: Adam Ferraro on 12-10-2022 MCHC (RBC) [Mass/Vol] 32.4 g/dL 32-[address] [facility] No Panel InformationOrdered By: Adam Ferraro on 12-10-2022 Estimated GFR (MDRD) Amer 50 mL/min >60 [facility] Comment on above: GFR Calc Estimated GFR (MDRD) Non-Af Amer 41 mL/min >60 [facility] Comment on above: Non- GFR Calc [place] Level 0.50 mmol/L 0.60-1.20 [facility] Platelets bldOrdered By: Benoit Ferraro on 12-10-2022 Platelets (Bld) [#/Vol] 213 10*3/uL 150-450 [facility] Serum or plasma albumin you urement (mass/volume)Ordered By: Adam Ferraro on 12-10-2022 Albumin [Mass/Vol] 2.8 g/dL 3.2-5.0 [facility] Serum or plasma calcium you urement (mass/volume)Ordered By: Adam Ferraro on 12-10-2022 Calcium [Mass/Vol] 8.8 mg/dL 8.5-10.1 [facility] Serum or plasma creatinine m easurement (mass/volume)Ordered By: Adam Ferraro on 12-10-2022 Creatinine [Mass/Vol] 1.79 mg/dL 0.70-1.[address] [facility] Comment on above: The validity of the calculated GFR & GFRAA in patients over 70 years has not been determined. Clinical correlation is essential. Serum or plasma urea nitroge n measurement (mass/volume)Ordered By: Adam Ferraro on 12-10-2022 Urea nitrogen [Mass/Vol] 18 mg/dL 7-18 [facility] Urine creatinine measurement (mass/volume)Ordered By: Adam Ferraro on 11-17-2022 Creatinine (U) [Mass/Vol] 74.70 mg/dL NO RANGE EST. [facility] Urine protein measurement (m ass/volume)Ordered By: Adam Ferraro on 11-17-2022 Protein (U) [Mass/Vol] 16.5 mg/dL 0.0-11.8 [facility] Urine protein/creatinine mas s ratioOrdered By: Adam [facility] on 11-17-2022 Protein/Creatinine (U) [Mass ratio] 221 mg/g CRE 0-200 [facility] Absolute lymphocyte countOrd ered By: Alfredo Phipps on 11-12-2022 Lymphocytes Auto (Unsp spec) [#/Vol] 2.11 10*3/uL 0.83-4.51 [facility] Basophil percentageOrdered B y: Alfredo Phipps on 11-12-2022 Basophil percentage 3.3 mg/dL 2.5-4.9 [facility] Basophils/100 WBC (Bld) 0.7 % 0-1 [facility] Chloride [Moles/Vol] 106 mmol/L 98-107 [facility] Eosinophils/100 WBC (Bld) 2.4 % 0-5 [facility] Glucose [Mass/Vol] 169 mg/dL 74-106 [facility] Comment on above: Fasting Glucose resu lt greater than or equal to 126 mg/dL suggests DIABETES MELLITUS per A.D.A. criteria. Neutrophils (Bld) [#/Vol] 6.1 10*3/uL 2.0-7.7 [facility] Neutrophils/100 WBC (Bld) 63.5 % 47-70 [facility] Potassium [Moles/Vol] 3.5 mmol/L 3.5-5.[address] [facility] Sodium [Moles/Vol] 138 mmol/L 136-145 [facility] WBC (Bld) [#/Vol] 9.6 10*3/uL 4.4-11.0 [facility] Blood erythrocytes count (nu mber/volume)Ordered By: Alfredo Phipps on 11-12-2022 RBC (Bld) [#/Vol] 4.67 10*6/uL 4.6-6.2 [facility] Blood hemoglobin measurement (mass/volume)Ordered By: Alfredo Phipps on 11-12-2022 Hemoglobin (Bld) [Mass/Vol] 13.9 g/dL 13.0-16.5 [facility] Blood lymphocytes/100 leukoc ytesOrdered By: Alfredo Phipps on 11-12-2022 Lymphocytes/100 WBC (Bld) 21.9 % 19-41 [facility] Blood monocytes/100 leukocyt esOrdered By: Alfredo Phipps on 11-12-2022 Monocytes/100 WBC (Bld) 10.8 % 0-10 [facility] Blood platelet mean volumeOr dered By: Alfredo Phipps on 11-12-2022 Platelet mean volume (Bld) [Entitic vol] 9.8 fL 6.2-12.0 [facility] Determination of erythrocyte mean corpuscular volume (MCV)Ordered By: Alfredo Phipps on 11-12-2022 MCV (RBC) [Entitic vol] 89.1 fL 80-94 [facility] Hematocrit Auto (Bld) [Volum e fraction]Ordered By: Alfredo Phipps on 11-12-2022 Hematocrit (Bld) [Volume fraction] 41.6 % 40-54 [facility] Laboratory - Chemistry and C hemistry - challengeOrdered By: Alfredo Phipps on 11-12-2022 CO2 [Moles/Vol] 25.0 mmol/L 21.0-32.0 [facility] Urea nitrogen/Creatinine [Mass ratio] 11.4 mg/mg 10-20 [facility] - Hematology and Cell countsOrdered By: Alfredo Phipps on 11-12-2022 Erythrocyte distribution width (RBC) [Entitic vol] 43.2 fL 35.1-43.9 [facility] Erythrocyte distribution width (RBC) [Ratio] 13.2 % 11.6-14.6 [facility] Immature granulocytes/100 WBC (Bld) 0.700 % 0.0-0.9 [facility] Comment on above: IG% - Immature Granu locytes (promyelocytes, myelocytes and metamyelocytes) > 1% indicates that a LEFT SHIFT is Present. MCH (RBC) [Entitic mass] 29.8 pg 27.0-32.0 [facility] Nucleated RBC/100 WBC (Bld) [Ratio] 0 % 0-5 [facility] MCHC Auto (RBC) [Mass/Vol]Or dered By: Alfredo Phipps on 11-12-2022 MCHC (RBC) [Mass/Vol] 33.4 g/dL 32-[address] [facility] No Panel InformationOrdered By: Alfredo Phipps on 11-12-2022 Estimated GFR (MDRD) Amer 48 mL/min >60 [facility] Comment on above: GFR Calc Estimated GFR (MDRD) Non-Af Amer 40 mL/min >60 [facility] Comment on above: Non- GFR Calc [place] Level 0.40 mmol/L 0.60-1.20 [facility] Platelets bldOrdered By: Jennifer Phipps on 11-12-2022 Platelets (Bld) [#/Vol] 200 10*3/uL 150-450 [facility] Serum or plasma albumin you urement (mass/volume)Ordered By: Alfredo Phipps on 11-12-2022 Albumin [Mass/Vol] 2.9 g/dL 3.2-5.0 [facility] Serum or plasma calcium you urement (mass/volume)Ordered By: Alfredo Phipps on 11-12-2022 Calcium [Mass/Vol] 8.7 mg/dL 8.5-10.1 [facility] Serum or plasma creatinine m easurement (mass/volume)Ordered By: Alfredo Phipps on 11-12-2022 Creatinine [Mass/Vol] 1.85 mg/dL 0.70-1.[address] [facility] Comment on above: The validity of the calculated GFR & GFRAA in patients over 70 years has not been determined. Clinical correlation is essential. Serum or plasma urea nitroge n measurement (mass/volume)Ordered By: Alfredo Phipps on 11-12-2022 Urea nitrogen [Mass/Vol] 21 mg/dL 7-18 [facility] Serum or plasma uric acid me asurement (mass/volume)Ordered By: Alfredo Phipps on 10-27-2022 Urate [Mass/Vol] 6.4 mg/dL 3.5-7.2 [facility] Comment on above: The drugs N-Acetylcy steine and Metamizole may falsely depress this assay. Absolute lymphocyte countOrd ered By: Alfredo Phipps on 10-15-2022 Lymphocytes Auto (Unsp spec) [#/Vol] 2.30 10*3/uL 0.83-4.51 [facility] Basophil percentageOrdered B y: Alfredo Phipps on 10-15-2022 Basophil percentage 4.2 mg/dL 2.5-4.9 [facility] Basophils/100 WBC (Bld) 1.0 % 0-1 [facility] Chloride [Moles/Vol] 108 mmol/L 98-107 [facility] Eosinophils/100 WBC (Bld) 3.2 % 0-5 [facility] Glucose [Mass/Vol] 168 mg/dL 74-106 [facility] Comment on above: Fasting Glucose resu lt greater than or equal to 126 mg/dL suggests DIABETES MELLITUS per A.D.A. criteria. Neutrophils (Bld) [#/Vol] 4.8 10*3/uL 2.0-7.7 [facility] Neutrophils/100 WBC (Bld) 58.3 % 47-70 [facility] Potassium [Moles/Vol] 4.1 mmol/L 3.5-5.[address] [facility] Comment on above: Slight Hemolysis, Re sult may be falsely increased. Sodium [Moles/Vol] 140 mmol/L 136-145 [facility] WBC (Bld) [#/Vol] 8.3 10*3/uL 4.4-11.0 [facility] Blood erythrocytes count (nu mber/volume)Ordered By: Alfrdeo Phipps on 10-15-2022 RBC (Bld) [#/Vol] 4.81 10*6/uL 4.6-6.2 [facility] Blood hemoglobin measurement (mass/volume)Ordered By: Alfredo Phipps on 10-15-2022 Hemoglobin (Bld) [Mass/Vol] 13.9 g/dL 13.0-16.5 [facility] Blood lymphocytes/100 leukoc ytesOrdered By: Alfredo Phipps on 10-15-2022 Lymphocytes/100 WBC (Bld) 27.6 % 19-41 [facility] Blood monocytes/100 leukocyt esOrdered By: Alfredo Phipps on 10-15-2022 Monocytes/100 WBC (Bld) 9.1 % 0-10 [facility] Blood platelet mean volumeOr dered By: Alfredo Phipps on 10-15-2022 Platelet mean volume (Bld) [Entitic vol] 10.1 fL 6.2-12.0 [facility] Determination of erythrocyte mean corpuscular volume (MCV)Ordered By: Alfredo Phipps on 10-15-2022 MCV (RBC) [Entitic vol] 89.4 fL 80-94 [facility] Hematocrit Auto (Bld) [Volum e fraction]Ordered By: Alfredo Phipps on 10-15-2022 Hematocrit (Bld) [Volume fraction] 43.0 % 40-54 [facility] Laboratory - Chemistry and C hemistry - challengeOrdered By: Alfredo Phipps on 10-15-2022 CO2 [Moles/Vol] 28.0 mmol/L 21.0-32.0 [facility] Urea nitrogen/Creatinine [Mass ratio] 11.3 mg/mg 10-20 [facility] Laboratory - Hematology and Cell countsOrdered By: Alfredo Phipps on 10-15-2022 Erythrocyte distribution width (RBC) [Entitic vol] 42.9 fL 35.1-43.9 [facility] Erythrocyte distribution width (RBC) [Ratio] 13.2 % 11.6-14.6 [facility] Immature granulocytes/100 WBC (Bld) 0.800 % 0.0-0.9 [facility] Comment on above: IG% - Immature Granu locytes (promyelocytes, myelocytes and metamyelocytes) > 1% indicates that a LEFT SHIFT is Present. MCH (RBC) [Entitic mass] 28.9 pg 27.0-32.0 [facility] Nucleated RBC/100 WBC (Bld) [Ratio] 0 % 0-5 [facility] MCHC Auto (RBC) [Mass/Vol]Or dered By: Alfredo Phipps on 10-15-2022 MCHC (RBC) [Mass/Vol] 32.3 g/dL 32-[address] [facility] No Panel InformationOrdered By: Alfredo Phipps on 10-15-2022 Estimated GFR (MDRD) Amer 46 mL/min >60 [facility] Comment on above: GFR Calc Estimated GFR (MDRD) Non-Af Amer 38 mL/min >60 [facility] Comment on above: Non- GFR Calc [place] Level 0.50 mmol/L 0.60-1.20 [facility] Platelets bldOrdered By: Jennifer Phipps on 10-15-2022 Platelets (Bld) [#/Vol] 200 10*3/uL 150-450 [facility] Serum or plasma albumin you urement (mass/volume)Ordered By: Alfredo Phipps on 10-15-2022 Albumin [Mass/Vol] 2.9 g/dL 3.2-5.0 [facility] Serum or plasma calcium you urement (mass/volume)Ordered By: Alfredo Phipps on 10-15-2022 Calcium [Mass/Vol] 9.1 mg/dL 8.5-10.1 [facility] Serum or plasma creatinine m easurement (mass/volume)Ordered By: Alfredo Phipps on 10-15-2022 Creatinine [Mass/Vol] 1.94 mg/dL 0.70-1.[address] [facility] Comment on above: The validity of the calculated GFR & GFRAA in patients over 70 years has not been determined. Clinical correlation is essential. Serum or plasma urea nitroge n measurement (mass/volume)Ordered By: Alfredo Phipps on 10-15-2022 Urea nitrogen [Mass/Vol] 22 mg/dL 7-18 [facility] Serum or plasma uric acid me asurement (mass/volume)Ordered By: Alfredo Phipps on 09-27-2022 Urate [Mass/Vol] 7.0 mg/dL 3.5-7.2 [facility] Comment on above: The drugs N-Acetylcy steine and Metamizole may falsely depress this assay. Absolute lymphocyte countOrd ered By: Adam Ferraro on 09-17-2022 Lymphocytes Auto (Unsp spec) [#/Vol] 2.69 10*3/uL 0.83-4.51 [facility] Basophil percentageOrdered B y: Adam Ferraro on 09-17-2022 Basophil percentage 3.8 mg/dL 2.5-4.9 [facility] Basophils/100 WBC (Bld) 0.9 % 0-1 [facility] Chloride [Moles/Vol] 105 mmol/L 98-107 [facility] Eosinophils/100 WBC (Bld) 3.2 % 0-5 [facility] Glucose [Mass/Vol] 141 mg/dL 74-106 [facility] Comment on above: Fasting Glucose resu lt greater than or equal to 126 mg/dL suggests DIABETES MELLITUS per A.D.A. criteria. Neutrophils (Bld) [#/Vol] 5.1 10*3/uL 2.0-7.7 [facility] Neutrophils/100 WBC (Bld) 56.1 % 47-70 [facility] Potassium [Moles/Vol] 3.8 mmol/L 3.5-5.[address] [facility] Sodium [Moles/Vol] 139 mmol/L 136-145 [facility] WBC (Bld) [#/Vol] 9.0 10*3/uL 4.4-11.0 [facility] Blood erythrocytes count (nu mber/volume)Ordered By: Adam Ferraro on 09-17-2022 RBC (Bld) [#/Vol] 4.99 10*6/uL 4.6-6.2 [facility] Blood hemoglobin measurement (mass/volume)Ordered By: Adam Ferraro on 09-17-2022 Hemoglobin (Bld) [Mass/Vol] 14.8 g/dL 13.0-16.5 [facility] Blood lymphocytes/100 leukoc ytesOrdered By: Adam Ferraro on 09-17-2022 Lymphocytes/100 WBC (Bld) 29.8 % 19-41 [facility] Blood monocytes/100 leukocyt esOrdered By: Adam Ferraro on 09-17-2022 Monocytes/100 WBC (Bld) 9.4 % 0-10 [facility] Blood platelet mean volumeOr dered By: Adam Ferraro on 09-17-2022 Platelet mean volume (Bld) [Entitic vol] 10.2 fL 6.2-12.0 [facility] Determination of erythrocyte mean corpuscular volume (MCV)Ordered By: Adam Ferraro on 09-17-2022 MCV (RBC) [Entitic vol] 88.6 fL 80-94 [facility] Hematocrit Auto (Bld) [Volum e fraction]Ordered By: Adam Ferraro on 09-17-2022 Hematocrit (Bld) [Volume fraction] 44.2 % 40-54 [facility] Laboratory - Chemistry and C hemistry - challengeOrdered By: Adam Ferraro on 09-17-2022 CO2 [Moles/Vol] 26.0 mmol/L 21.0-32.0 [facility] Urea nitrogen/Creatinine [Mass ratio] 11.4 mg/mg 10-20 [facility] Laboratory - Hematology and Cell countsOrdered By: Adam Ferraro on 09-17-2022 Erythrocyte distribution width (RBC) [Entitic vol] 42.8 fL 35.1-43.9 [facility] Erythrocyte distribution width (RBC) [Ratio] 13.2 % 11.6-14.6 [facility] Immature granulocytes/100 WBC (Bld) 0.600 % 0.0-0.9 [facility] Comment on above: IG% - Immature Granu locytes (promyelocytes, myelocytes and metamyelocytes) > 1% indicates that a LEFT SHIFT is Present. MCH (RBC) [Entitic mass] 29.7 pg 27.0-32.0 [facility] Nucleated RBC/100 WBC (Bld) [Ratio] 0 % 0-5 [facility] MCHC Auto (RBC) [Mass/Vol]Or dered By: Adam Ferraro on 09-17-2022 MCHC (RBC) [Mass/Vol] 33.5 g/dL 32-[address] [facility] No Panel InformationOrdered By: Adam Ferraro on 09-17-2022 [place] Level 0.50 mmol/L 0.60-1.20 [facility] Estimated GFR (MDRD) Amer 51 mL/min >60 [facility] Comment on above: GFR Calc Estimated GFR (MDRD) Non-Af Amer 42 mL/min >60 [facility] Comment on above: Non- GFR Calc Platelets bldOrdered By: Benoit Ferraro on 09-17-2022 Platelets (Bld) [#/Vol] 178 10*3/uL 150-450 [facility] Serum or plasma albumin you urement (mass/volume)Ordered By: Adam Ferraro on 09-17-2022 Albumin [Mass/Vol] 3.0 g/dL 3.2-5.0 [facility] Serum or plasma calcium you urement (mass/volume)Ordered By: Adam Ferraro on 09-17-2022 Calcium [Mass/Vol] 9.0 mg/dL 8.5-10.1 [facility] Serum or plasma creatinine m easurement (mass/volume)Ordered By: Adam Ferraro on 09-17-2022 Creatinine [Mass/Vol] 1.76 mg/dL 0.70-1.[address] [facility] Comment on above: The validity of the calculated GFR & GFRAA in patients over 70 years has not been determined. Clinical correlation is essential. Serum or plasma urea nitroge n measurement (mass/volume)Ordered By: Adam Ferraro on 09-17-2022 Urea nitrogen [Mass/Vol] 20 mg/dL 7-18 [facility] Urine creatinine measurement (mass/volume)Ordered By: Adam Ferraro on 09-17-2022 Creatinine (U) [Mass/Vol] 128.00 mg/dL NO RANGE EST. [facility] Urine protein measurement (m ass/volume)Ordered By: Adam Ferraro on 09-17-2022 Protein (U) [Mass/Vol] 20.9 mg/dL 0.0-11.8 [facility] Urine protein/creatinine mas s ratioOrdered By: Adam Ferraro on 09-17-2022 Protein/Creatinine (U) [Mass ratio] 163 mg/g CRE 0-200 [facility] Serum or plasma uric acid me asurement (mass/volume)Ordered By: Adam Ferraro on 08-27-2022 Urate [Mass/Vol] 6.4 mg/dL 3.5-7.2 [facility] Comment on above: The drugs N-Acetylcy steine and Metamizole may falsely depress this assay. No Panel InformationOrdered By: Adam Ferraro on 08-23-2022 [place] Level 0.40 mmol/L 0.60-1.20 [facility] Culture, urineOrdered By: Chan Fiore on 08-15-2022 Bacteria identified Cx Nom (U) Streptococcus mitis [facility] Absolute lymphocyte countOrd ered By: Alfredo Phipps on 08-12-2022 Lymphocytes Auto (Unsp spec) [#/Vol] 2.09 10*3/uL 0.83-4.51 [facility] Basophil percentageOrdered B y: Alfredo Phipps on 08-12-2022 Basophil percentage 3.6 mg/dL 2.5-4.9 [facility] Basophils/100 WBC (Bld) 0.9 % 0-1 [facility] Chloride [Moles/Vol] 107 mmol/L 98-107 [facility] Eosinophils/100 WBC (Bld) 2.8 % 0-5 [facility] Glucose [Mass/Vol] 151 mg/dL 74-106 [facility] Comment on above: Fasting Glucose resu lt greater than or equal to 126 mg/dL suggests DIABETES MELLITUS per A.D.A. criteria. Neutrophils (Bld) [#/Vol] 5.5 10*3/uL 2.0-7.7 [facility] Neutrophils/100 WBC (Bld) 63.4 % 47-70 [facility] Potassium [Moles/Vol] 4.0 mmol/L 3.5-5.[address] [facility] Sodium [Moles/Vol] 140 mmol/L 136-145 [facility] WBC (Bld) [#/Vol] 8.7 10*3/uL 4.4-11.0 [facility] Basophil percentage 10-25 SEEN /hpf 0-5 [facility] Bilirubin Test strip Ql (U)O rdered By: Alfredo Phipps on 08-12-2022 Bilirubin Ql (U) Negative Negative [facility] Blood erythrocytes count (nu mber/volume)Ordered By: Alfredo Phipps on 08-12-2022 RBC (Bld) [#/Vol] 4.92 10*6/uL 4.6-6.2 [facility] Blood hemoglobin measurement (mass/volume)Ordered By: Alfredo Phipps on 08-12-2022 Hemoglobin (Bld) [Mass/Vol] 14.5 g/dL 13.0-16.5 [facility] Blood lymphocytes/100 leukoc ytesOrdered By: Alfredo Phipps on 08-12-2022 Lymphocytes/100 WBC (Bld) 24.1 % 19-41 [facility] Blood monocytes/100 leukocyt esOrdered By: Alfredo Phipps on 08-12-2022 Monocytes/100 WBC (Bld) 8.3 % 0-10 [facility] Blood platelet mean volumeOr dered By: Alfredo Phipps on 08-12-2022 Platelet mean volume (Bld) [Entitic vol] 9.8 fL 6.2-12.0 [facility] Determination of erythrocyte mean corpuscular volume (MCV)Ordered By: Alfredo Phipps on 08-12-2022 MCV (RBC) [Entitic vol] 91.1 fL 80-94 [facility] Hematocrit Auto (Bld) [Volum e fraction]Ordered By: Alfredo Phipps on 08-12-2022 Hematocrit (Bld) [Volume fraction] 44.8 % 40-54 [facility] Ketones Test strip Ql (U)Ord ered By: Alfredo Phipps on 08-12-2022 Ketones Ql (U) Negative Negative [facility] Laboratory - Chemistry and C hemistry - challengeOrdered By: Alfredo hPipps on 08-12-2022 CO2 [Moles/Vol] 25.0 mmol/L 21.0-32.0 [facility] Urea nitrogen/Creatinine [Mass ratio] 14.9 mg/mg 10-20 [facility] Laboratory - Hematology and Cell countsOrdered By: Alfredo Phipps on 08-12-2022 Erythrocyte distribution width (RBC) [Entitic vol] 43.3 fL 35.1-43.9 [facility] Erythrocyte distribution width (RBC) [Ratio] 12.9 % 11.6-14.6 [facility] Immature granulocytes/100 WBC (Bld) 0.500 % 0.0-0.9 [facility] Comment on above: IG% - Immature Granu locytes (promyelocytes, myelocytes and metamyelocytes) > 1% indicates that a LEFT SHIFT is Present. MCH (RBC) [Entitic mass] 29.5 pg 27.0-32.0 [facility] Nucleated RBC/100 WBC (Bld) [Ratio] 0 % 0-5 [facility] Auto (RBC) [Mass/Vol]Or dered By: Alfredo Phipps on 08-12-2022 MCHC (RBC) [Mass/Vol] 32.4 g/dL 32-[address] [facility] Mucus LM Ql (Urine sed)Order ed By: Alfredo Phipps on 08-12-2022 Mucus Ql (Urine sed) Not Reportable [facility] Nitrite Test strip Ql (U)Ord ered By: Alfredo Phipps on 08-12-2022 Nitrite Ql (U) Negative Negative [facility] No Panel InformationOrdered By: Alfredo Phipps on 08-12-2022 Estimated GFR (MDRD) Amer 54 mL/min >60 [facility] Comment on above: GFR Calc Estimated GFR (MDRD) Non-Af Amer 45 mL/min >60 [facility] Comment on above: Non- GFR Calc Platelets bldOrdered By: Pet er Desire on 08-12-2022 Platelets (Bld) [#/Vol] 238 10*3/uL 150-450 [facility] Protein Test strip Ql (U)Ord ered By: Alfredo Phipps on 08-12-2022 Protein Ql (U) 15 mg/dl Negative [facility] Serum or plasma albumin you urement (mass/volume)Ordered By: Alfredo Phipps on 08-12-2022 Albumin [Mass/Vol] 2.9 g/dL 3.2-5.0 [facility] Serum or plasma calcium you urement (mass/volume)Ordered By: Alfredo Phipps on 08-12-2022 Calcium [Mass/Vol] 9.2 mg/dL 8.5-10.1 [facility] Serum or plasma creatinine m easurement (mass/volume)Ordered By: Alfredo Phipps on 08-12-2022 Creatinine [Mass/Vol] 1.68 mg/dL 0.70-1.[address] [facility] Comment on above: The validity of the calculated GFR & GFRAA in patients over 70 years has not been determined. Clinical correlation is essential. Serum or plasma urea nitroge n measurement (mass/volume)Ordered By: Alfredo Phipps on 08-12-2022 Urea nitrogen [Mass/Vol] 25 mg/dL 7-18 [facility] Squamous epithelial cells de tection in urine sediment by light microscopyOrdered By: Alfredo Phipps on 08-12-2022 Epithelial cells.squamous LM Ql (Urine sed) 0-5 SEEN /hpf 0-5 [facility] Urine blood detectionOrdered By: Alfredo Phipps on 08-12-2022 RBC Ql (U) Negative Negative [facility] RBC Ql (U) 0 SEEN /hpf 0-5 [facility] Urine clarityOrdered By: Jennifer Phipps on 08-12-2022 Clarity (U) Clear Clear [facility] Urine color determinationOrd ered By: Alfredo Phipps on 08-12-2022 Color (U) Yellow Yellow [facility] Urine creatinine measurement (mass/volume)Ordered By: Alfredo Phipps on 08-12-2022 Creatinine (U) [Mass/Vol] 102.00 mg/dL NO RANGE EST. [facility] Urine glucose detectionOrder ed By: Alfredo Phipps on 08-12-2022 Glucose Ql (U) Normal mg/dl Normal [facility] Urine leukocyte esterase det ection by dipstickOrdered By: Alfredo Phipps on 08-12-2022 Leukocyte esterase Test strip Ql (U) 500 /ul Negative [facility] Urine pHOrdered By: Alfredo saha on 08-12-2022 pH (U) 6.0 [pH] 5.0 - 8.0 [facility] Urine protein measurement (m ass/volume)Ordered By: Alfredo Phipps on 08-12-2022 Protein (U) [Mass/Vol] 19.9 mg/dL 0.0-11.8 [facility] Urine protein/creatinine mas s ratioOrdered By: Alfredo Phipps on 08-12-2022 Protein/Creatinine (U) [Mass ratio] 195 mg/g CRE 0-200 [facility] Urine sediment bacteria coun t by microscopy (number/high power field)Ordered By: Alfredo Phipps on 08-12-2022 Bacteria LM.HPF (Urine sed) [#/Area] RARE /hpf None Seen [facility] Urine specific gravity measu rementOrdered By: Alfredo Phipps on 08-12-2022 Specific gravity (U) [Rel density] 1.015 1.002-1.03 0 [facility] Urobilinogen Auto test strip Ql (U)Ordered By: Alfredo Phipps on 08-12-2022 Urobilinogen Ql (U) Normal mg/dl Normal [facility] No Panel Informationon 07-28 [place] Level 0.60 mmol/L 0.60-1.20 [facility] Work Phone: Serum or plasma uric acid me asurement (mass/volume)on 07-28-2022 Urate [Mass/Vol] 6.3 mg/dL 3.5-7.2 [facility] Work Phone: Comment on above: The drugs N-Acetylcy steine and Metamizole may falsely depress this assay. URINALYSIS, REFLEX MICROSCOP ICon 07-27-2022 Bilirubin Ql (U) Negative Negative [facility] Clarity (Unsp spec) Clear Clear [facility] Color (U) Colorless Yellow [facility] Glucose Test strip (U) [Mass/Vol] Negative Negative [facility] Hemoglobin Ql (U) Negative Negative [facility] Ketones Ql (U) Negative Negative [facility] Leukocyte esterase Test strip Ql (U) Negative Negative [facility] Nitrite Ql (U) Negative Negative [facility] pH (U) 6.5 [pH] 5.0 - 8.0 [facility] Protein (U) [Mass/Vol] Negative Negative [facility] Specific gravity (U) [Rel density] 1.009 1.005 - 1.030 [facility] Urobilinogen Ql (U) Negative Negative [facility] Absolute lymphocyte counton 07-15-2022 Lymphocytes Auto (Unsp spec) [#/Vol] 1.93 10*3/uL 0.83-4.51 [facility] Work Phone: Basophil percentageon 2021 Basophil percentage 3.9 mg/dL 2.5-4.9 [facility] Work Phone: Basophils/100 WBC (Bld) 1.3 % 0-1 [facility] Work Phone: [phone] Chloride [Moles/Vol] 107 mmol/L 98-107 [facility] Work Phone: Eosinophils/100 WBC (Bld) 1.7 % 0-5 [facility] Work Phone: [phone] Glucose [Mass/Vol] 126 mg/dL 74-106 [facility] Work Phone: [phone] Comment on above: Fasting Glucose resu lt greater than or equal to 126 mg/dL suggests DIABETES MELLITUS per A.D.A. criteria. Neutrophils (Bld) [#/Vol] 6.1 10*3/uL 2.0-7.7 [facility] Work Phone: [phone] Neutrophils/100 WBC (Bld) 66.5 % 47-70 [facility] Work Phone: Potassium [Moles/Vol] 4.4 mmol/L 3.5-5.[address] [facility] Work Phone: [phone] Sodium [Moles/Vol] 139 mmol/L 136-145 [facility] Work Phone: [phone] WBC (Bld) [#/Vol] 9.2 10*3/uL 4.4-11.0 [facility] Work Phone: [phone] Bilirubin Test strip Ql (U)o n 07-15-2022 Bilirubin Ql (U) Negative Negative [facility] Work Phone: [phone] Blood erythrocytes count (nu mber/volume)on 07-15-2022 RBC (Bld) [#/Vol] 5.01 10*6/uL 4.6-6.2 [facility] Work Phone: [phone] Blood hemoglobin measurement (mass/volume)on 07-15-2022 Hemoglobin (Bld) [Mass/Vol] 14.8 g/dL 13.0-16.5 [facility] Work Phone: Blood lymphocytes/100 leukoc yteson 07-15-2022 Lymphocytes/100 WBC (Bld) 20.9 % 19-41 [facility] Work Phone: Blood monocytes/100 leukocyt eson 07-15-2022 Monocytes/100 WBC (Bld) 8.9 % 0-10 [facility] Work Phone: Blood platelet mean volumeon 07-15-2022 Platelet mean volume (Bld) [Entitic vol] 9.7 fL 6.2-12.0 [facility] Work Phone: Determination of erythrocyte mean corpuscular volume (MCV)on 07-15-2022 MCV (RBC) [Entitic vol] 91.8 fL 80-94 [facility] Work Phone: Hematocrit Auto (Bld) [Volum e fraction]on 07-15-2022 Hematocrit (Bld) [Volume fraction] 46.0 % 40-54 [facility] Work Phone: Ketones Test strip Ql (U)on 07-15-2022 Ketones Ql (U) Negative Negative [facility] Work Phone: Laboratory - Chemistry and C hemistry - challengeon 07-15-2022 CO2 [Moles/Vol] 25.0 mmol/L 21.0-32.0 [facility] Work Phone: Urea nitrogen/Creatinine [Mass ratio] 14.9 mg/mg 10-20 [facility] Work Phone: Laboratory - Hematology and Cell countson 07-15-2022 Erythrocyte distribution width (RBC) [Entitic vol] 44.0 fL 35.1-43.9 [facility] Work Phone: Erythrocyte distribution width (RBC) [Ratio] 13.1 % 11.6-14.6 [facility] Work Phone: Immature granulocytes/100 WBC (Bld) 0.700 % 0.0-0.9 [facility] Work Phone: Comment on above: IG% - Immature Granu locytes (promyelocytes, myelocytes and metamyelocytes) > 1% indicates that a LEFT SHIFT is Present. MCH (RBC) [Entitic mass] 29.5 pg 27.0-32.0 [facility] Work Phone: [phone] Nucleated RBC/100 WBC (Bld) [Ratio] 0 % 0-5 [facility] Work Phone: MCHC Auto (RBC) [Mass/Vol]on 07-15-2022 MCHC (RBC) [Mass/Vol] 32.2 g/dL 32-[address] [facility] Work Phone: Nitrite Test strip Ql (U)on 07-15-2022 Nitrite Ql (U) Negative Negative [facility] Work Phone: No Panel Informationon 07-15 Estimated GFR (MDRD) Amer 54 mL/min >60 [facility] Work Phone: Comment on above: GFR Calc Estimated GFR (MDRD) Non-Af Amer 45 mL/min >60 [facility] Work Phone: Comment on above: Non- GFR Calc Platelets bldon 07-15-2022 Platelets (Bld) [#/Vol] 231 10*3/uL 150-450 [facility] Work Phone: Protein Test strip Ql (U)on 07-15-2022 Protein Ql (U) 30 mg/dl Negative [facility] Work Phone: Serum or plasma albumin you urement (mass/volume)on 07-15-2022 Albumin [Mass/Vol] 3.1 g/dL 3.2-5.0 [facility] Work Phone: Serum or plasma calcium you urement (mass/volume)on 07-15-2022 Calcium [Mass/Vol] 8.6 mg/dL 8.5-10.1 [facility] Work Phone: Serum or plasma creatinine m easurement (mass/volume)on 07-15-2022 Creatinine [Mass/Vol] 1.68 mg/dL 0.70-1.[address] [facility] Work Phone: Comment on above: The validity of the calculated GFR & GFRAA in patients over 70 years has not been determined. Clinical correlation is essential. Serum or plasma urea nitroge n measurement (mass/volume)on 07-15-2022 Urea nitrogen [Mass/Vol] 25 mg/dL 7-18 [facility] Work Phone: Urine blood detectionon - RBC Ql (U) Negative Negative [facility] Work Phone: Urine clarityon 07-15-2022 Clarity (U) Sl. Cloudy Clear [facility] Work Phone: Urine color determinationon 07-15-2022 Color (U) Yellow Yellow [facility] Work Phone: [phone] Urine creatinine measurement (mass/volume)on 07-15-2022 Creatinine (U) [Mass/Vol] 114.00 mg/dL NO RANGE EST. [facility] Work Phone: [phone] Urine glucose detectionon Glucose Ql (U) Normal mg/dl Normal [facility] Work Phone: [phone] Urine leukocyte esterase det ection by dipstickon 07-15-2022 Leukocyte esterase Test strip Ql (U) 100 /ul Negative [facility] Work Phone: [phone] Urine pHon 07-15-2022 pH (U) 6.0 [pH] 5.0 - 8.0 [facility] Work Phone: Urine protein measurement (m ass/volume)on 07-15-2022 Protein (U) [Mass/Vol] 26.5 mg/dL 0.0-11.8 [facility] Work Phone: [phone] Urine protein/creatinine mas s ratioon 07-15-2022 Protein/Creatinine (U) [Mass ratio] 232 mg/g CRE 0-200 [facility] Work Phone: Urine specific gravity measu rementon 07-15-2022 Specific gravity (U) [Rel density] 1.015 1.002-1.03 0 [facility] Work Phone: [phone] Urobilinogen Auto test strip Ql (U)on 07-15-2022 Urobilinogen Ql (U) Normal mg/dl Normal [facility] Work Phone: [phone] Basophil percentageon 2021 Cholesterol [Mass/Vol] 149 mg/dL <200 [facility] Work Phone: Comment on above: <200 mg/dL [...] = 500 mg/dL No Panel Informationon 06-28 [place] Level 0.40 mmol/L 0.60-1.20 [facility] Work Phone: Serum or plasma cholesterol in HDL measurement (mass/volume)on 06-28-2022 Cholesterol in HDL [Mass/Vol] 34 mg/dL >40 [facility] Work Phone: Comment on above: The drugs N-Acetylcy steine and Metamizole may falsely depress this assay. Reference Range HDL <40 mg/dL Low HDL Cholesterol HDL >or= 60 mg/dL High HDL Cholesterol Serum or plasma cholesterol in VLDL measurement (mass/volume)on 06-28-2022 Cholesterol in VLDL [Mass/Vol] 76 mg/dL 5-40 [facility] Work Phone: Serum or plasma low density lipoprotein (LDL) cholesterol measurement (mass/volume)on 06-28-2022 Cholesterol in LDL [Mass/Vol] 39 mg/dL 0-130 [facility] Work Phone: Serum or plasma uric acid me asurement (mass/volume)on 06-28-2022 Urate [Mass/Vol] 5.9 mg/dL 3.5-7.2 [facility] Work Phone: Comment on above: The drugs N-Acetylcy steine and Metamizole may falsely depress this assay. Absolute lymphocyte counton 06-17-2022 Lymphocytes Auto (Unsp spec) [#/Vol] 2.02 10*3/uL 0.83-4.51 [facility] Work Phone: Basophil percentageon 2021 Basophil percentage 0-5 SEEN /hpf 0-5 [facility] Work Phone: Basophil percentage 3.8 mg/dL 2.5-4.9 [facility] Work Phone: Basophils/100 WBC (Bld) 0.8 % 0-1 [facility] Work Phone: Chloride [Moles/Vol] 108 mmol/L 98-107 [facility] Work Phone: Eosinophils/100 WBC (Bld) 2.9 % 0-5 [facility] Work Phone: Glucose [Mass/Vol] 133 mg/dL 74-106 [facility] Work Phone: Comment on above: Fasting Glucose resu lt greater than or equal to 126 mg/dL suggests DIABETES MELLITUS per A.D.A. criteria. Neutrophils (Bld) [#/Vol] 5.3 10*3/uL 2.0-7.7 [facility] Work Phone: Neutrophils/100 WBC (Bld) 61.6 % 47-70 [facility] Work Phone: Potassium [Moles/Vol] 3.8 mmol/L 3.5-5.1 [facility] Work Phone: Sodium [Moles/Vol] 140 mmol/L 136-145 [facility] Work Phone: WBC (Bld) [#/Vol] 8.6 10*3/uL 4.4-11.0 [facility] Work Phone: Bilirubin Test strip Ql (U)o n 06-17-2022 Bilirubin Ql (U) Negative Negative [facility] Work Phone: Blood erythrocytes count (nu mber/volume)on 06-17-2022 RBC (Bld) [#/Vol] 4.46 10*6/uL 4.6-6.2 [facility] Work Phone: Blood hemoglobin measurement (mass/volume)on 06-17-2022 Hemoglobin (Bld) [Mass/Vol] 13.4 g/dL 13.0-16.5 [facility] Work Phone: Blood lymphocytes/100 leukoc yteson 06-17-2022 Lymphocytes/100 WBC (Bld) 23.5 % 19-41 [facility] Work Phone: Blood monocytes/100 leukocyt eson 06-17-2022 Monocytes/100 WBC (Bld) 10.0 % 0-10 [facility] Work Phone: [phone] Blood platelet mean volumeon 06-17-2022 Platelet mean volume (Bld) [Entitic vol] 9.6 fL 6.2-12.0 [facility] Work Phone: [phone] Determination of erythrocyte mean corpuscular volume (MCV)on 06-17-2022 MCV (RBC) [Entitic vol] 91.3 fL 80-94 [facility] Work Phone: [phone] Hematocrit Auto (Bld) [Volum e fraction]on 06-17-2022 Hematocrit (Bld) [Volume fraction] 40.7 % 40-54 [facility] Work Phone: [phone] Ketones Test strip Ql (U)on 06-17-2022 Ketones Ql (U) Negative Negative [facility] Work Phone: [phone] Laboratory - Chemistry and C hemistry - challengeon 06-17-2022 CO2 [Moles/Vol] 25.0 mmol/L 21.0-32.0 [facility] Work Phone: [phone] Urea nitrogen/Creatinine [Mass ratio] 12.6 mg/mg 10-20 [facility] Work Phone: [phone] Laboratory - Hematology and Cell countson 06-17-2022 Erythrocyte distribution width (RBC) [Entitic vol] 45.5 fL 35.1-43.9 [facility] Work Phone: [phone] Erythrocyte distribution width (RBC) [Ratio] 13.4 % 11.6-14.6 [facility] Work Phone: [phone] Immature granulocytes/100 WBC (Bld) 1.200 % 0.0-0.9 [facility] Work Phone: [phone] Comment on above: IG% - Immature Granu locytes (promyelocytes, myelocytes and metamyelocytes) > 1% indicates that a LEFT SHIFT is Present. MCH (RBC) [Entitic mass] 30.0 pg 27.0-32.0 [facility] Work Phone: Nucleated RBC/100 WBC (Bld) [Ratio] 0 % 0-5 [facility] Work Phone: MCHC Auto (RBC) [Mass/Vol]on 06-17-2022 MCHC (RBC) [Mass/Vol] 32.9 g/dL 32-[address] [facility] Work Phone: Mucus LM Ql (Urine sed)on Mucus Ql (Urine sed) 0 SEEN /hpf [facility] Work Phone: Nitrite Test strip Ql (U)on 06-17-2022 Nitrite Ql (U) Negative Negative [facility] Work Phone: No Panel Informationon 06-17 Estimated GFR (MDRD) Amer 58 mL/min >60 [facility] Work Phone: Comment on above: GFR Calc Estimated GFR (MDRD) Non-Af Amer 48 mL/min >60 [facility] Work Phone: Comment on above: Non- GFR Calc Platelets bldon 06-17-2022 Platelets (Bld) [#/Vol] 178 10*3/uL 150-450 [facility] Work Phone: Protein Test strip Ql (U)on 06-17-2022 Protein Ql (U) 15 mg/dl Negative [facility] Work Phone: Serum or plasma albumin you urement (mass/volume)on 06-17-2022 Albumin [Mass/Vol] 2.8 g/dL 3.2-5.0 [facility] Work Phone: Serum or plasma calcium you urement (mass/volume)on 06-17-2022 Calcium [Mass/Vol] 8.6 mg/dL 8.5-10.1 [facility] Work Phone: Serum or plasma creatinine m easurement (mass/volume)on 06-17-2022 Creatinine [Mass/Vol] 1.59 mg/dL 0.70-1.[address] [facility] Work Phone: Comment on above: The validity of the calculated GFR & GFRAA in patients over 70 years has not been determined. Clinical correlation is essential. Serum or plasma urea nitroge n measurement (mass/volume)on 06-17-2022 Urea nitrogen [Mass/Vol] 20 mg/dL 7-18 [facility] Work Phone: Squamous epithelial cells de tection in urine sediment by light microscopyon 06-17-2022 Epithelial cells.squamous LM Ql (Urine sed) 0-5 SEEN /hpf 0-5 [facility] Work Phone: Urine blood detectionon RBC Ql (U) Negative Negative [facility] Work Phone: RBC Ql (U) 0 SEEN /hpf 0-5 [facility] Work Phone: Urine clarityon 06-17-2022 Clarity (U) Clear Clear [facility] Work Phone: Urine color determinationon 06-17-2022 Color (U) Yellow Yellow [facility] Work Phone: Urine creatinine measurement (mass/volume)on 06-17-2022 Creatinine (U) [Mass/Vol] 118.00 mg/dL NO RANGE EST. [facility] Work Phone: Urine glucose detectionon Glucose Ql (U) Normal mg/dl Normal [facility] Work Phone: Urine leukocyte esterase det ection by dipstickon 06-17-2022 Leukocyte esterase Test strip Ql (U) 100 /ul Negative [facility] Work Phone: Urine pHon 06-17-2022 pH (U) 6.0 [pH] 5.0 - 8.0 [facility] Work Phone: Urine protein measurement (m ass/volume)on 06-17-2022 Protein (U) [Mass/Vol] 22.0 mg/dL 0.0-11.8 [facility] Work Phone: [phone] Urine protein/creatinine mas s ratioon 06-17-2022 Protein/Creatinine (U) [Mass ratio] 186 mg/g CRE 0-200 [facility] Work Phone: [phone] Urine sediment bacteria coun t by microscopy (number/high power field)on 06-17-2022 Bacteria LM.HPF (Urine sed) [#/Area] 0 /[HPF] None Seen [facility] Work Phone: [phone] Urine specific gravity measu rementon 06-17-2022 Specific gravity (U) [Rel density] 1.015 1.002-1.03 0 [facility] Work Phone: [phone] Urobilinogen Auto test strip Ql (U)on 06-17-2022 Urobilinogen Ql (U) Normal mg/dl Normal [facility] Work Phone: [phone] No Panel Informationon 05-27 [place] Level 0.40 mmol/L 0.60-1.20 [facility] Work Phone: [phone] Serum or plasma uric acid me asurement (mass/volume)on 05-27-2022 Urate [Mass/Vol] 6.1 mg/dL 3.5-7.2 [facility] Work Phone: [phone] Comment on above: The drugs N-Acetylcy steine and Metamizole may falsely depress this assay. Absolute lymphocyte counton 05-20-2022 Lymphocytes Auto (Unsp spec) [#/Vol] 2.07 10*3/uL 0.83-4.51 [facility] Work Phone: [phone] Basophil percentageon 2021 Basophil percentage 3.2 mg/dL 2.5-4.9 [facility] Work Phone: Basophils/100 WBC (Bld) 0.7 % 0-1 [facility] Work Phone: [phone] Chloride [Moles/Vol] 108 mmol/L 98-107 [facility] Work [facility]: Eosinophils/100 WBC (Bld) 2.5 % 0-5 [facility] Work Phone: [phone] Glucose [Mass/Vol] 149 mg/dL 74-106 [facility] Work Phone: [phone] Comment on above: Fasting Glucose resu lt greater than or equal to 126 mg/dL suggests DIABETES MELLITUS per A.D.A. criteria. Neutrophils (Bld) [#/Vol] 6.4 10*3/uL 2.0-7.7 [facility] Work Phone: [phone] Neutrophils/100 WBC (Bld) 65.6 % 47-70 [facility] Work Phone: [phone] Potassium [Moles/Vol] 3.9 mmol/L 3.5-5.[address] [facility] Work Phone: [phone] Sodium [Moles/Vol] 140 mmol/L 136-145 [facility] Work Phone: [phone] WBC (Bld) [#/Vol] 9.7 10*3/uL 4.4-11.0 [facility] Work Phone: [phone] Basophil percentage 0-5 SEEN /hpf 0-5 [facility] Work Phone: [phone] Bilirubin Test strip Ql (U)o n 05-20-2022 Bilirubin Ql (U) Negative Negative [facility] Work Phone: [phone] Blood erythrocytes count (nu mber/volume)on 05-20-2022 RBC (Bld) [#/Vol] 4.36 10*6/uL 4.6-6.2 [facility] Work Phone: [phone] Blood hemoglobin measurement (mass/volume)on 05-20-2022 Hemoglobin (Bld) [Mass/Vol] 12.9 g/dL 13.0-16.5 [facility] Work Phone: Blood lymphocytes/100 leukoc yteson 05-20-2022 Lymphocytes/100 WBC (Bld) 21.4 % 19-41 [facility] Work Phone: Blood monocytes/100 leukocyt eson 05-20-2022 Monocytes/100 WBC (Bld) 9.3 % 0-10 [facility] Work Phone: Blood platelet mean volumeon 05-20-2022 Platelet mean volume (Bld) [Entitic vol] 9.6 fL 6.2-12.0 [facility] Work Phone: Determination of erythrocyte mean corpuscular volume (MCV)on 05-20-2022 MCV (RBC) [Entitic vol] 91.5 fL 80-94 [facility] Work Phone: [phone] Hematocrit Auto (Bld) [Volum e fraction]on 05-20-2022 Hematocrit (Bld) [Volume fraction] 39.9 % 40-54 [facility] Work Phone: [phone] Ketones Test strip Ql (U)on 05-20-2022 Ketones Ql (U) Negative Negative [facility] Work Phone: Laboratory - Chemistry and C hemistry - challengeon 05-20-2022 CO2 [Moles/Vol] 26.0 mmol/L 21.0-32.0 [facility] Work Phone: [phone] Urea nitrogen/Creatinine [Mass ratio] 9.9 mg/mg 10-20 [facility] Work Phone: [phone] Laboratory - Hematology and Cell countson 05-20-2022 Erythrocyte distribution width (RBC) [Entitic vol] 45.7 fL 35.1-43.9 [facility] Work Phone: [phone] Erythrocyte distribution width (RBC) [Ratio] 13.6 % 11.6-14.6 [facility] Work Phone: [phone] Immature granulocytes/100 WBC (Bld) 0.500 % 0.0-0.9 [facility] Work Phone: Comment on above: IG% - Immature Granu locytes (promyelocytes, myelocytes and metamyelocytes) > 1% indicates that a LEFT SHIFT is Present. MCH (RBC) [Entitic mass] 29.6 pg 27.0-32.0 [facility] Work Phone: [phone] Nucleated RBC/100 WBC (Bld) [Ratio] 0 % 0-5 [facility] Work Phone: MCHC Auto (RBC) [Mass/Vol]on 05-20-2022 MCHC (RBC) [Mass/Vol] 32.3 g/dL 32-[address] [facility] Work Phone: Mucus LM Ql (Urine sed)on Mucus Ql (Urine sed) 0 SEEN /hpf [facility] Work Phone: Nitrite Test strip Ql (U)on 05-20-2022 Nitrite Ql (U) Negative Negative [facility] Work Phone: No Panel Informationon 05-20 Estimated GFR (MDRD) Amer 53 mL/min >60 [facility] Work Phone: Comment on above: GFR Calc Estimated GFR (MDRD) Non-Af Amer 44 mL/min >60 [facility] Work Phone: Comment on above: Non- GFR Calc Platelets bldon 05-20-2022 Platelets (Bld) [#/Vol] 197 10*3/uL 150-450 [facility] Work Phone: Protein Test strip Ql (U)on 05-20-2022 Protein Ql (U) Negative Negative [facility] Work Phone: Serum or plasma albumin you urement (mass/volume)on 05-20-2022 Albumin [Mass/Vol] 2.7 g/dL 3.2-5.0 [facility] Work Phone: Serum or plasma calcium you urement (mass/volume)on 05-20-2022 Calcium [Mass/Vol] 9.0 mg/dL 8.5-10.1 [facility] Work Phone: Serum or plasma creatinine m easurement (mass/volume)on 05-20-2022 Creatinine [Mass/Vol] 1.71 mg/dL 0.70-1.[address] [facility] Work Phone: Comment on above: The validity of the calculated GFR & GFRAA in patients over 70 years has not been determined. Clinical correlation is essential. Serum or plasma urea nitroge n measurement (mass/volume)on 05-20-2022 Urea nitrogen [Mass/Vol] 17 mg/dL 7-18 [facility] Work Phone: [phone] Squamous epithelial cells de tection in urine sediment by light microscopyon 05-20-2022 Epithelial cells.squamous LM Ql (Urine sed) 0-5 SEEN /hpf 0-5 [facility] Work Phone: [phone] Urine blood detectionon RBC Ql (U) Negative Negative [facility] Work Phone: [phone] RBC Ql (U) 0 SEEN /hpf 0-5 [facility] Work Phone: [phone] Urine clarityon 05-20-2022 Clarity (U) Clear Clear [facility] Work Phone: [phone] Urine color determinationon 05-20-2022 Color (U) Yellow Yellow [facility] Work Phone: [phone] Urine creatinine measurement (mass/volume)on 05-20-2022 Creatinine (U) [Mass/Vol] 107.00 mg/dL NO RANGE EST. [facility] Work Phone: Urine glucose detectionon Glucose Ql (U) Normal mg/dl Normal [facility] Work Phone: [phone] Urine leukocyte esterase det ection by dipstickon 05-20-2022 Leukocyte esterase Test strip Ql (U) 25 /ul Negative [facility] Work Phone: Urine pHon 05-20-2022 pH (U) 6.5 [pH] 5.0 - 8.0 [facility] Work Phone: Urine protein measurement (m ass/volume)on 05-20-2022 Protein (U) [Mass/Vol] 17.3 mg/dL 0.0-11.8 [facility] Work Phone: [phone] Urine protein/creatinine mas s ratioon 05-20-2022 Protein/Creatinine (U) [Mass ratio] 162 mg/g CRE 0-200 [facility] Work Phone: Urine sediment bacteria coun t by microscopy (number/high power field)on 05-20-2022 Bacteria LM.HPF (Urine sed) [#/Area] 0 /[HPF] None Seen [facility] Work Phone: Urine specific gravity measu rementon 05-20-2022 Specific gravity (U) [Rel density] 1.010 1.002-1.03 0 [facility] Work Phone: Urobilinogen Auto test strip Ql (U)on 05-20-2022 Urobilinogen Ql (U) Normal mg/dl Normal [facility] Work Phone: No Panel Informationon 05-05 [facility] Absolute lymphocyte counton 04-27-2022 Lymphocytes Auto (Unsp spec) [#/Vol] 2.36 10*3/uL 0.83-4.51 [facility] Work Phone: Basophil percentageon 2021 Basophil percentage 4.6 mg/dL 2.5-4.9 [facility] Work Phone: Basophils/100 WBC (Bld) 0.3 % 0-1 [facility] Work Phone: Chloride [Moles/Vol] 104 mmol/L 98-107 [facility] Work Phone: Eosinophils/100 WBC (Bld) 0.1 % 0-5 [facility] Work Phone: Glucose [Mass/Vol] 190 mg/dL 74-106 [facility] Work Phone: Comment on above: Fasting Glucose resu lt greater than or equal to 126 mg/dL suggests DIABETES MELLITUS per A.D.A. criteria. Neutrophils (Bld) [#/Vol] 10.5 10*3/uL 2.0-7.7 [facility] Work Phone: Neutrophils/100 WBC (Bld) 72.0 % 47-70 [facility] Work Phone: Potassium [Moles/Vol] 3.8 mmol/L 3.5-5.[address] [facility] Work Phone: Sodium [Moles/Vol] 140 mmol/L 136-[facility]: WBC (Bld) [#/Vol] 14.5 10*3/uL 4.4-11.0 [facility] Work Phone: Blood erythrocytes count (nu mber/volume)on 04-27-2022 RBC (Bld) [#/Vol] 4.56 10*6/uL 4.6-6.2 [facility] Work Phone: Blood hemoglobin measurement (mass/volume)on 04-27-2022 Hemoglobin (Bld) [Mass/Vol] 13.4 g/dL 13.0-16.5 [facility] Work Phone: Blood lymphocytes/100 leukoc yteson 04-27-2022 Lymphocytes/100 WBC (Bld) 16.3 % 19-41 [facility] Work Phone: Blood monocytes/100 leukocyt eson 04-27-2022 Monocytes/100 WBC (Bld) 7.6 % 0-10 [facility] Work Phone: Blood platelet mean volumeon 04-27-2022 Platelet mean volume (Bld) [Entitic vol] 9.2 fL 6.2-12.0 [facility] Work Phone: [phone] Determination of erythrocyte mean corpuscular volume (MCV)on 04-27-2022 MCV (RBC) [Entitic vol] 91.0 fL 80-94 [facility] Work Phone: Hematocrit Auto (Bld) [Volum e fraction]on 04-27-2022 Hematocrit (Bld) [Volume fraction] 41.5 % 40-54 [facility] Work Phone: Laboratory - Chemistry and C hemistry - challengeon 04-27-2022 CO2 [Moles/Vol] 28.0 mmol/L 21.0-32.0 [facility] Work Phone: [phone] Urea nitrogen/Creatinine [Mass ratio] 13.4 mg/mg 10-20 [facility] Work Phone: Laboratory - Hematology and Cell countson 04-27-2022 Erythrocyte distribution width (RBC) [Entitic vol] 45.7 fL 35.1-43.9 [facility] Work Phone: Erythrocyte distribution width (RBC) [Ratio] 13.7 % 11.6-14.6 [facility] Work Phone: Immature granulocytes/100 WBC (Bld) 3.700 % 0.0-0.9 [facility] Work Phone: Comment on above: IG% - Immature Granu locytes (promyelocytes, myelocytes and metamyelocytes) > 1% indicates that a LEFT SHIFT is Present. MCH (RBC) [Entitic mass] 29.4 pg 27.0-32.0 [facility] Work Phone: Nucleated RBC/100 WBC (Bld) [Ratio] 0.1 % 0-5 [facility] Work Phone: MCHC Auto (RBC) [Mass/Vol]on 04-27-2022 MCHC (RBC) [Mass/Vol] 32.3 g/dL 32-[address] [facility] Work Phone: No Panel Informationon 04-27 Estimated GFR (MDRD) Amer 44 mL/min >60 [facility] Work Phone: Comment on above: GFR Calc Estimated GFR (MDRD) Non-Af Amer 36 mL/min >60 [facility] Work Phone: Comment on above: Non- GFR Calc [place] Level 0.50 mmol/L 0.60-1.20 [facility] Work Phone: Platelets bldon 04-27-2022 Platelets (Bld) [#/Vol] 243 10*3/uL 150-450 [facility] Work Phone: Serum or plasma albumin you urement (mass/volume)on 04-27-2022 Albumin [Mass/Vol] 2.9 g/dL 3.2-5.0 [facility] Work Phone: Serum or plasma calcium you urement (mass/volume)on 04-27-2022 Calcium [Mass/Vol] 9.3 mg/dL 8.5-10.1 [facility] Work Phone: Serum or plasma creatinine m easurement (mass/volume)on 04-27-2022 Creatinine [Mass/Vol] 2.02 mg/dL 0.70-1.[address] [facility] Work Phone: Comment on above: The validity of the calculated GFR & GFRAA in patients over 70 years has not been determined. Clinical correlation is essential. Serum or plasma urea nitroge n measurement (mass/volume)on 04-27-2022 Urea nitrogen [Mass/Vol] 27 mg/dL 7-18 [facility] Work Phone: Serum or plasma uric acid me asurement (mass/volume)on 04-27-2022 Urate [Mass/Vol] 6.5 mg/dL 3.5-7.2 [facility] Work Phone: Comment on above: The drugs N-Acetylcy steine and Metamizole may falsely depress this assay. Urine creatinine measurement (mass/volume)on 04-27-2022 Creatinine (U) [Mass/Vol] 69.70 mg/dL NO RANGE EST. [facility] Work Phone: Urine protein measurement (m ass/volume)on 04-27-2022 Protein (U) [Mass/Vol] 10.2 mg/dL 0.0-11.8 [facility] Work Phone: Urine protein/creatinine mas s ratioon 04-27-2022 Protein/Creatinine (U) [Mass ratio] 146 mg/g CRE 0-200 [facility] Work Phone: Basophil percentageon 2021 Basophil percentage 4.2 mg/dL 2.5-4.9 [facility] Work Phone: Chloride [Moles/Vol] 107 mmol/L 98-[address] [facility] [address] [facility] Work Phone: Glucose [Mass/Vol] 129 mg/dL 74-106 [facility] Work Phone: Comment on above: Fasting Glucose resu lt greater than or equal to 126 mg/dL suggests DIABETES MELLITUS per A.D.A. criteria. Potassium [Moles/Vol] 3.8 mmol/L 3.5-5.[address] [facility] Work Phone: Sodium [Moles/Vol] 140 mmol/L 136-145 [facility] Work Phone: Basophil percentage 25-50 SEEN /hpf 0-5 [facility] Work Phone: Bilirubin Test strip Ql (U)o n 04-22-2022 Bilirubin Ql (U) Negative Negative [facility] Work Phone: Culture, urineon 04-22-2022 Bacteria identified Cx Nom (U) Positive [facility] Work Phone: Ketones Test strip Ql (U)on 04-22-2022 Ketones Ql (U) Negative Negative [facility] Work Phone: Laboratory - Chemistry and C hemistry - challengeon 04-22-2022 CO2 [Moles/Vol] 27.0 mmol/L 21.0-32.0 [facility] Work Phone: Urea nitrogen/Creatinine [Mass ratio] 8.2 mg/mg 10-20 [facility] Work Phone: Mucus LM Ql (Urine sed)on Mucus Ql (Urine sed) 0 SEEN /hpf [facility] Work Phone: Nitrite Test strip Ql (U)on 04-22-2022 Nitrite Ql (U) Negative Negative [facility] Work Phone: No Panel Informationon 04-22 Estimated GFR (MDRD) Amer 53 mL/min >60 [facility] Work Phone: Comment on above: GFR Calc Estimated GFR (MDRD) Non-Af Amer 44 mL/min >60 [facility] Work Phone: Comment on above: Non- GFR Calc Protein Test strip Ql (U)on 04-22-2022 Protein Ql (U) 15 mg/dl Negative [facility] Work Phone: Serum or plasma albumin you urement (mass/volume)on 04-22-2022 Albumin [Mass/Vol] 2.6 g/dL 3.2-5.0 [facility] Work Phone: Serum or plasma calcium you urement (mass/volume)on 04-22-2022 Calcium [Mass/Vol] 9.1 mg/dL 8.5-10.1 [facility] Work Phone: Serum or plasma creatinine m easurement (mass/volume)on 04-22-2022 Creatinine [Mass/Vol] 1.71 mg/dL 0.70-1.[address] [facility] Work Phone: Comment on above: The validity of the calculated GFR & GFRAA in patients over 70 years has not been determined. Clinical correlation is essential. Serum or plasma urea nitroge n measurement (mass/volume)on 04-22-2022 Urea nitrogen [Mass/Vol] 14 mg/dL 7-18 [facility] Work Phone: Squamous epithelial cells de tection in urine sediment by light microscopyon 04-22-2022 Epithelial cells.squamous LM Ql (Urine sed) 0-5 SEEN /hpf 0-5 [facility] Work Phone: Urine blood detectionon - RBC Ql (U) 10 /ul Negative [facility] Work Phone: RBC Ql (U) 0-5 SEEN /hpf 0-5 [facility] Work Phone: Urine clarityon 04-22-2022 Clarity (U) Clear Clear [facility] Work Phone: Urine color determinationon 04-22-2022 Color (U) Yellow Yellow [facility] Work Phone: Urine creatinine measurement (mass/volume)on 04-22-2022 Creatinine (U) [Mass/Vol] 171.00 mg/dL NO RANGE EST. [facility] Work Phone: Urine glucose detectionon Glucose Ql (U) Normal mg/dl Normal [facility] Work Phone: Urine leukocyte esterase det ection by dipstickon 04-22-2022 Leukocyte esterase Test strip Ql (U) 500 /ul Negative [facility] Work Phone: Urine pHon 04-22-2022 pH (U) 6.0 [pH] 5.0 - 8.0 [facility] Work Phone: Urine protein measurement (m ass/volume)on 04-22-2022 Protein (U) [Mass/Vol] 30.4 mg/dL 0.0-11.8 [facility] Work Phone: Urine protein/creatinine mas s ratioon 04-22-2022 Protein/Creatinine (U) [Mass ratio] 178 mg/g CRE 0-200 [facility] Work Phone: Urine sediment bacteria coun t by microscopy (number/high power field)on 04-22-2022 Bacteria LM.HPF (Urine sed) [#/Area] 0 /[HPF] None Seen [facility] Work Phone: Urine specific gravity measu rementon 04-22-2022 Specific gravity (U) [Rel density] 1.015 1.002-1.03 0 [facility] Work Phone: Urobilinogen Auto test strip Ql (U)on 04-22-2022 Urobilinogen Ql (U) Normal mg/dl Normal [facility] Work Phone: Absolute lymphocyte counton 04-21-2022 Lymphocytes Auto (Unsp spec) [#/Vol] 2.19 10*3/uL 0.83-4.51 [facility] Work Phone: Basophil percentageon 2021 Basophils/100 WBC (Bld) 0.6 % 0-1 [facility] Work Phone: Eosinophils/100 WBC (Bld) 2.4 % 0-5 [facility] Work Phone: Neutrophils (Bld) [#/Vol] 5.3 10*3/uL 2.0-7.7 [facility] Work Phone: Neutrophils/100 WBC (Bld) 60.5 % 47-70 [facility] Work Phone: WBC (Bld) [#/Vol] 8.8 10*3/uL 4.4-11.0 [facility]: Blood erythrocytes count (nu mber/volume)on 04-21-2022 RBC (Bld) [#/Vol] 4.29 10*6/uL 4.6-6.2 [facility]: Blood hemoglobin measurement (mass/volume)on 04-21-2022 Hemoglobin (Bld) [Mass/Vol] 12.9 g/dL 13.0-16.5 [facility] Work Phone: Blood lymphocytes/100 leukoc yteson 04-21-2022 Lymphocytes/100 WBC (Bld) 24.9 % 19-41 [facility] Work Phone: Blood monocytes/100 leukocyt eson 04-21-2022 Monocytes/100 WBC (Bld) 11.4 % 0-10 [facility] Work Phone: Blood platelet mean volumeon 04-21-2022 Platelet mean volume (Bld) [Entitic vol] 9.5 fL 6.2-12.0 [facility] Work Phone: Determination of erythrocyte mean corpuscular volume (MCV)on 04-21-2022 MCV (RBC) [Entitic vol] 92.1 fL 80-94 [facility] Work Phone: Hematocrit Auto (Bld) [Volum e fraction]on 04-21-2022 Hematocrit (Bld) [Volume fraction] 39.5 % 40-54 [facility] Work Phone: Laboratory - Hematology and Cell countson 04-21-2022 Erythrocyte distribution width (RBC) [Entitic vol] 45.9 fL 35.1-43.9 [facility] Work Phone: Erythrocyte distribution width (RBC) [Ratio] 13.5 % 11.6-14.6 [facility] Work Phone: Immature granulocytes/100 WBC (Bld) 0.200 % 0.0-0.9 [facility] Work Phone: Comment on above: IG% - Immature Granu locytes (promyelocytes, myelocytes and metamyelocytes) > 1% indicates that a LEFT SHIFT is Present. MCH (RBC) [Entitic mass] 30.1 pg 27.0-32.0 [facility] Work Phone: [phone] Nucleated RBC/100 WBC (Bld) [Ratio] 0 % 0-5 [facility] Work Phone: [phone] MCHC Auto (RBC) [Mass/Vol]on 04-21-2022 MCHC (RBC) [Mass/Vol] 32.7 g/dL 32-[address] [facility] Work Phone: [phone] Platelets bldon 04-21-2022 Platelets (Bld) [#/Vol] 199 10*3/uL 150-450 [facility] Work Phone: Serum or plasma uric acid me asurement (mass/volume)on 04-21-2022 Urate [Mass/Vol] 6.2 mg/dL 3.5-7.2 [facility] Work Phone: Comment on above: The drugs N-Acetylcy steine and Metamizole may falsely depress this assay. Laboratory - Microbiology an d Antimicrobial susceptibilityon 04-06-2022 SARS-CoV-2 (COVID-19) RNA AMANDO+probe Ql (Unsp spec) Detected Not Detect [facility] Work Phone: Comment on above: [...] Auto (Unsp spec) [#/Vol] 1.96 10*3/uL 0.83-4.51 [facility] Work Phone: [phone] Basophil percentageon 2021 Basophils/100 WBC (Bld) 0.6 % 0-1 [facility] Work Phone: Chloride [Moles/Vol] 103 mmol/L 98-107 [facility] Work Phone: Eosinophils/100 WBC (Bld) 0.6 % 0-5 [facility] Work Phone: Glucose [Mass/Vol] 133 mg/dL 74-106 [facility] Work Phone: Comment on above: Fasting Glucose resu lt greater than or equal to 126 mg/dL suggests DIABETES MELLITUS per A.D.A. criteria. Neutrophils (Bld) [#/Vol] 7.3 10*3/uL 2.0-7.7 [facility] Work Phone: Neutrophils/100 WBC (Bld) 64.6 % 47-70 [facility] Work Phone: Potassium [Moles/Vol] 3.5 mmol/L 3.5-5.[address] [facility] Work Phone: Sodium [Moles/Vol] 138 mmol/L 136-145 [facility] Work Phone: WBC (Bld) [#/Vol] 11.3 10*3/uL 4.4-11.0 [facility] Work Phone: Blood erythrocytes count (nu mber/volume)on 04-02-2022 RBC (Bld) [#/Vol] 4.81 10*6/uL 4.6-6.2 [facility] Work [facility]: [phone] Blood hemoglobin measurement (mass/volume)on 04-02-2022 Hemoglobin (Bld) [Mass/Vol] 14.4 g/dL 13.0-16.5 [facility] Work Phone: Blood lymphocytes/100 leukoc yteson 04-02-2022 Lymphocytes/100 WBC (Bld) 17.3 % 19-41 [facility] Work Phone: Blood monocytes/100 leukocyt eson 04-02-2022 Monocytes/100 WBC (Bld) 15.7 % 0-10 [facility] Work Phone: Blood platelet mean volumeon 04-02-2022 Platelet mean volume (Bld) [Entitic vol] 10.0 fL 6.2-12.0 [facility] Work Phone: [phone] Determination of erythrocyte mean corpuscular volume (MCV)on 04-02-2022 MCV (RBC) [Entitic vol] 91.7 fL 80-94 [facility] Work Phone: Hematocrit Auto (Bld) [Volum e fraction]on 04-02-2022 Hematocrit (Bld) [Volume fraction] 44.1 % 40-54 [facility] Work Phone: [phone] Laboratory - Chemistry and C hemistry - challengeon 04-02-2022 CO2 [Moles/Vol] 26.0 mmol/L 21.0-32.0 [facility] Work Phone: [phone] Urea nitrogen/Creatinine [Mass ratio] 14.1 mg/mg -20 [facility] Work Phone: Laboratory - Hematology and Cell countson 04-02-2022 Erythrocyte distribution width (RBC) [Entitic vol] 47.8 fL 35.1-43.9 [facility] Work Phone: [phone] Erythrocyte distribution width (RBC) [Ratio] 14.0 % 11.6-14.6 [facility] Work Phone: Immature granulocytes/100 WBC (Bld) 1.200 % 0.0-0.9 [facility] Work Phone: Comment on above: IG% - Immature Granu locytes (promyelocytes, myelocytes and metamyelocytes) > 1% indicates that a LEFT SHIFT is Present. MCH (RBC) [Entitic mass] 29.9 pg 27.0-32.0 [facility] Work Phone: Nucleated RBC/100 WBC (Bld) [Ratio] 0 % 0-5 [facility] Work Phone: MCHC Auto (RBC) [Mass/Vol]on 04-02-2022 MCHC (RBC) [Mass/Vol] 32.7 g/dL 32-[address] [facility] Work Phone: No Panel Informationon 04-02 Estimated GFR (MDRD) Amer 51 mL/min >60 [facility] Work Phone: Comment on above: GFR Calc Estimated GFR (MDRD) Non-Af Amer 42 mL/min >60 [facility] Work Phone: Comment on above: Non- GFR Calc Platelets bldon 04-02-2022 Platelets (Bld) [#/Vol] 160 10*3/uL 150-450 [facility] Work Phone: Review by pathologiston 03-15 Pathologist review Crispin (Unsp spec) [Interp] Reviewed [facility] Work Phone: Comment on above: Previous reported re sult: Bonnie kincaid Edited by: ETHEL on 04/06/22:09Leukocytosis. Tuan Servin M.D. 04/06/22 AMENDED REPORT 04/06/22 0913 PATH REV previously reported as: Bonnie kincaid Serum or plasma calcium you urement (mass/volume)on 04-02-2022 Calcium [Mass/Vol] 9.0 mg/dL 8.5-10.1 [facility] Work Phone: Serum or plasma creatinine m easurement (mass/volume)on 04-02-2022 Creatinine [Mass/Vol] 1.77 mg/dL 0.70-1.[address] [facility] Work Phone: [phone] Comment on above: The validity of the calculated GFR & GFRAA in patients over 70 years has not been determined. Clinical correlation is essential. Serum or plasma urea nitroge n measurement (mass/volume)on 04-02-2022 Urea nitrogen [Mass/Vol] 25 mg/dL 7-18 [facility] Work Phone: Thin prep Papanicolaou smear with manual screeningon 04-02-2022 Thin prep Papanicolaou smear with manual screening 9 5-15 [facility] Work Phone: Absolute lymphocyte counton 03-25-2022 Lymphocytes Auto (Unsp spec) [#/Vol] 2.80 10*3/uL 0.83-4.51 [facility] Work Phone: Basophil percentageon 2021 Basophil percentage 4.0 mg/dL 2.5-4.9 [facility] Work Phone: Basophils/100 WBC (Bld) 0.6 % 0-1 [facility] Work Phone: Chloride [Moles/Vol] 106 mmol/L 98-107 [facility] Work Phone: Eosinophils/100 WBC (Bld) 1.7 % 0-5 [facility] Work Phone: [phone] Glucose [Mass/Vol] 164 mg/dL 74-106 [facility] Work Phone: [phone] Comment on above: Fasting Glucose resu lt greater than or equal to 126 mg/dL suggests DIABETES MELLITUS per A.D.A. criteria. Neutrophils (Bld) [#/Vol] 5.6 10*3/uL 2.0-7.7 [facility] Work Phone: Neutrophils/100 WBC (Bld) 56.9 % 47-70 [facility] Work Phone: Potassium [Moles/Vol] 3.8 mmol/L 3.5-5.[address] [facility] Work Phone: Sodium [Moles/Vol] 139 mmol/L 136-145 [facility] Work Phone: WBC (Bld) [#/Vol] 9.8 10*3/uL 4.4-11.0 [facility] Work Phone: Basophil percentage 0-5 SEEN /hpf 0-5 [facility] Work Phone: [phone] Bilirubin Test strip Ql (U)o n 03-25-2022 Bilirubin Ql (U) Negative Negative [facility] Work Phone: [phone] Blood erythrocytes count (nu mber/volume)on 03-25-2022 RBC (Bld) [#/Vol] 4.77 10*6/uL 4.6-6.2 [facility] Work Phone: [phone] Blood hemoglobin measurement (mass/volume)on 03-25-2022 Hemoglobin (Bld) [Mass/Vol] 14.1 g/dL 13.0-16.5 [facility] Work Phone: Blood lymphocytes/100 leukoc yteson 03-25-2022 Lymphocytes/100 WBC (Bld) 28.7 % 19-41 [facility] Work Phone: Blood monocytes/100 leukocyt eson 03-25-2022 Monocytes/100 WBC (Bld) 9.2 % 0-10 [facility] Work Phone: Blood platelet mean volumeon 03-25-2022 Platelet mean volume (Bld) [Entitic vol] 9.3 fL 6.2-12.0 [facility] Work Phone: [phone] Determination of erythrocyte mean corpuscular volume (MCV)on 03-25-2022 MCV (RBC) [Entitic vol] 91.4 fL 80-94 [facility] Work Phone: Hematocrit Auto (Bld) [Volum e fraction]on 03-25-2022 Hematocrit (Bld) [Volume fraction] 43.6 % 40-54 [facility] Work Phone: [phone] Ketones Test strip Ql (U)on 03-25-2022 Ketones Ql (U) Negative Negative [facility] Work Phone: Laboratory - Chemistry and C hemistry - challengeon 03-25-2022 CO2 [Moles/Vol] 26.0 mmol/L 21.0-32.0 [facility] Work Phone: Urea nitrogen/Creatinine [Mass ratio] 15.4 mg/mg 10-20 [facility] Work Phone: Laboratory - Hematology and Cell countson 03-25-2022 Erythrocyte distribution width (RBC) [Entitic vol] 45.9 fL 35.1-43.9 [facility] Work Phone: Erythrocyte distribution width (RBC) [Ratio] 13.6 % 11.6-14.6 [facility] Work Phone: Immature granulocytes/100 WBC (Bld) 2.900 % 0.0-0.9 [facility] Work Phone: Comment on above: IG% - Immature Granu locytes (promyelocytes, myelocytes and metamyelocytes) > 1% indicates that a LEFT SHIFT is Present. MCH (RBC) [Entitic mass] 29.6 pg 27.0-32.0 [facility] Work Phone: Nucleated RBC/100 WBC (Bld) [Ratio] 0 % 0-5 [facility] Work Phone: MCHC Auto (RBC) [Mass/Vol]on 03-25-2022 MCHC (RBC) [Mass/Vol] 32.3 g/dL 32-[address] [facility] Work Phone: Mucus LM Ql (Urine sed)on Mucus Ql (Urine sed) 0 SEEN /hpf [facility] Work Phone: Nitrite Test strip Ql (U)on 03-25-2022 Nitrite Ql (U) Negative Negative [facility] Work Phone: No Panel Informationon 03-25 Estimated GFR (MDRD) Amer 52 mL/min >60 [facility] Work Phone: Comment on above: GFR Calc Estimated GFR (MDRD) Non-Af Amer 43 mL/min >60 [facility] Work Phone: Comment on above: Non- GFR Calc Platelets bldon 03-25-2022 Platelets (Bld) [#/Vol] 276 10*3/uL 150-450 [facility] Work Phone: Protein Test strip Ql (U)on 03-25-2022 Protein Ql (U) Negative Negative [facility] Work Phone: Serum or plasma albumin you urement (mass/volume)on 03-25-2022 Albumin [Mass/Vol] 2.9 g/dL 3.2-5.0 [facility] Work Phone: Serum or plasma calcium you urement (mass/volume)on 03-25-2022 Calcium [Mass/Vol] 8.7 mg/dL 8.5-10.1 [facility] Work Phone: Serum or plasma creatinine m easurement (mass/volume)on 03-25-2022 Creatinine [Mass/Vol] 1.75 mg/dL 0.70-1.[address] [facility] Work Phone: Comment on above: The validity of the calculated GFR & GFRAA in patients over 70 years has not been determined. Clinical correlation is essential. Serum or plasma urea nitroge n measurement (mass/volume)on 03-25-2022 Urea nitrogen [Mass/Vol] 27 mg/dL 7-18 [facility] Work Phone: Squamous epithelial cells de tection in urine sediment by light microscopyon 03-25-2022 Epithelial cells.squamous LM Ql (Urine sed) 0-5 SEEN /hpf 0-5 [facility] Work Phone: Urine blood detectionon 03-14 RBC Ql (U) Negative Negative [facility] Work Phone: RBC Ql (U) 0 SEEN /hpf 0-5 [facility] Work Phone: Urine clarityon 03-25-2022 Clarity (U) Sl. Cloudy Clear [facility] Work Phone: Urine color determinationon 03-25-2022 Color (U) Yellow Yellow [facility] Work Phone: [phone] Urine creatinine measurement (mass/volume)on 03-25-2022 Creatinine (U) [Mass/Vol] 90.50 mg/dL NO RANGE EST. [facility] Work Phone: [phone] Urine glucose detectionon Glucose Ql (U) Normal mg/dl Normal [facility] Work Phone: [phone] Urine leukocyte esterase det ection by dipstickon 03-25-2022 Leukocyte esterase Test strip Ql (U) 25 /ul Negative [facility] Work Phone: [phone] Urine pHon 03-25-2022 pH (U) 6.0 [pH] 5.0 - 8.0 [facility] Work Phone: Urine protein measurement (m ass/volume)on 03-25-2022 Protein (U) [Mass/Vol] 15.8 mg/dL 0.0-11.8 [facility] Work Phone: [phone] Urine protein/creatinine mas s ratioon 03-25-2022 Protein/Creatinine (U) [Mass ratio] 175 mg/g CRE 0-200 [facility] Work Phone: Urine sediment bacteria coun t by microscopy (number/high power field)on 03-25-2022 Bacteria LM.HPF (Urine sed) [#/Area] 0 /[HPF] None Seen [facility] Work Phone: Urine specific gravity measu rementon 03-25-2022 Specific gravity (U) [Rel density] 1.015 1.002-1.03 0 [facility] Work Phone: [phone] Urobilinogen Auto test strip Ql (U)on 03-25-2022 Urobilinogen Ql (U) Normal mg/dl Normal [facility] Work Phone: [phone] Serum or plasma uric acid me asurement (mass/volume)on 03-19-2022 Urate [Mass/Vol] 8.3 mg/dL 3.5-7.2 [facility] Work Phone: [phone] Comment on above: The drugs N-Acetylcy steine and Metamizole may falsely depress this assay. Absolute lymphocyte counton 02-25-2022 Lymphocytes Auto (Unsp spec) [#/Vol] 2.27 10*3/uL 0.83-4.51 [facility] Work Phone: Basophil percentageon 2021 Basophil percentage 0 SEEN /hpf 0-5 [facility] Work Phone: Basophil percentage 4.3 mg/dL 2.5-4.9 [facility] Work Phone: Basophils/100 WBC (Bld) 0.3 % 0-1 [facility] Work Phone: Chloride [Moles/Vol] 102 mmol/L 98-107 [facility] Work Phone: Eosinophils/100 WBC (Bld) 0.2 % 0-5 [facility] Work Phone: Glucose [Mass/Vol] 107 mg/dL 74-106 [facility] Work Phone: [phone] Comment on above: Fasting Glucose resu lt from 100 to 125 mg/dL suggests IMPAIRED HOMEOSTASIS per A.D.A. criteria. Neutrophils (Bld) [#/Vol] 7.8 10*3/uL 2.0-7.7 [facility] Work Phone: Neutrophils/100 WBC (Bld) 67.9 % 47-70 [facility] Work Phone: [phone] Potassium [Moles/Vol] 4.1 mmol/L 3.5-5.[address] [facility] Work Phone: [phone] Comment on above: Moderate Hemolysis, Result may be falsely increased. Sodium [Moles/Vol] 137 mmol/L 136-145 [facility] Work Phone: WBC (Bld) [#/Vol] 11.6 10*3/uL 4.4-11.0 [facility] Work Phone: Bilirubin Test strip Ql (U)o n 02-25-2022 Bilirubin Ql (U) Negative Negative [facility] Work Phone: [phone] Blood erythrocytes count (nu mber/volume)on 02-25-2022 RBC (Bld) [#/Vol] 4.09 10*6/uL 4.6-6.2 [facility] Work Phone: [phone] Blood hemoglobin measurement (mass/volume)on 02-25-2022 Hemoglobin (Bld) [Mass/Vol] 12.0 g/dL 13.0-16.5 [facility] Work Phone: Blood lymphocytes/100 leukoc yteson 02-25-2022 Lymphocytes/100 WBC (Bld) 19.7 % 19-41 [facility] Work Phone: Blood monocytes/100 leukocyt eson 02-25-2022 Monocytes/100 WBC (Bld) 9.0 % 0-10 [facility] Work Phone: [phone] Blood platelet adequacy dete ction by light microscopyon 02-25-2022 Platelets LM Ql (Bld) ADEQUATE ADEQ [facility] Work Phone: [phone] Blood platelet mean volumeon 02-25-2022 Platelet mean volume (Bld) [Entitic vol] 9.9 fL 6.2-12.0 [facility] Work Phone: [phone] Culture, urineon 02-25-2022 Bacteria identified Cx Nom (U) Culture exhibits no growth. [facility] Work Phone: [phone] Determination of erythrocyte mean corpuscular volume (MCV)on 02-25-2022 MCV (RBC) [Entitic vol] 90.2 fL 80-94 [facility] Work Phone: [phone] Hematocrit Auto (Bld) [Volum e fraction]on 02-25-2022 Hematocrit (Bld) [Volume fraction] 36.9 % 40-54 [facility] Work Phone: [phone] Ketones Test strip Ql (U)on 02-25-2022 Ketones Ql (U) Negative Negative [facility] Work Phone: Laboratory - Chemistry and C hemistry - challengeon 02-25-2022 CO2 [Moles/Vol] 26.0 mmol/L 21.0-32.0 [facility] Work Phone: Urea nitrogen/Creatinine [Mass ratio] 18.6 mg/mg 10-20 [facility] Work Phone: Laboratory - Hematology and Cell countson 02-25-2022 Erythrocyte distribution width (RBC) [Entitic vol] 46.8 fL 35.1-43.9 [facility] Work Phone: Erythrocyte distribution width (RBC) [Ratio] 14.1 % 11.6-14.6 [facility] Work Phone: Immature granulocytes/100 WBC (Bld) 2.900 % 0.0-0.9 [facility] Work Phone: Comment on above: IG% - Immature Granu locytes (promyelocytes, myelocytes and metamyelocytes) > 1% indicates that a LEFT SHIFT is Present. MCH (RBC) [Entitic mass] 29.3 pg 27.0-32.0 [facility] Work Phone: Nucleated RBC/100 WBC (Bld) [Ratio] 0 % 0-5 [facility] Work Phone: MCHC Auto (RBC) [Mass/Vol]on 02-25-2022 MCHC (RBC) [Mass/Vol] 32.5 g/dL 32-[address] [facility] Work Phone: Mucus LM Ql (Urine sed)on Mucus Ql (Urine sed) 0 SEEN /hpf [facility] Work Phone: Nitrite Test strip Ql (U)on 02-25-2022 Nitrite Ql (U) Negative Negative [facility] Work Phone: No Panel Informationon 02-25 Estimated GFR (MDRD) Amer 43 mL/min >60 [facility] Work Phone: Comment on above: GFR Calc Estimated GFR (MDRD) Non-Af Amer 36 mL/min >60 [facility] Work Phone: Comment on above: Non- GFR Calc [place] Level 0.50 mmol/L 0.60-1.20 [facility] Work Phone: Platelets bldon 02-25-2022 [...] patient will be necessary.Previous reported result: [id number] by: RUPERTO on 02/25/22:1032 AMENDED REPORT 02/25/22 1032 PLT previously reported as: 202 K/mm3 Protein Test strip Ql (U)on 02-25-2022 Protein Ql (U) Negative Negative [facility] Work Phone: Serum or plasma albumin you urement (mass/volume)on 02-25-2022 Albumin [Mass/Vol] 3.2 g/dL 3.2-5.0 [facility] Work Phone: Serum or plasma calcium you urement (mass/volume)on 02-25-2022 Calcium [Mass/Vol] 8.4 mg/dL 8.5-10.1 [facility] Work Phone: Serum or plasma creatinine m easurement (mass/volume)on 02-25-2022 Creatinine [Mass/Vol] 2.04 mg/dL 0.70-1.[address] [facility] Work Phone: Comment on above: The validity of the calculated GFR & GFRAA in patients over 70 years has not been determined. Clinical correlation is essential. Serum or plasma urea nitroge n measurement (mass/volume)on 02-25-2022 Urea nitrogen [Mass/Vol] 38 mg/dL 7-18 [facility] Work Phone: Serum or plasma uric acid me asurement (mass/volume)on 02-25-2022 Urate [Mass/Vol] 7.8 mg/dL 3.5-7.2 [facility] Work Phone: Comment on above: The drugs N-Acetylcy steine and Metamizole may falsely depress this assay. Squamous epithelial cells de tection in urine sediment by light microscopyon 02-25-2022 Epithelial cells.squamous LM Ql (Urine sed) 0 SEEN /hpf 0-5 [facility] Work Phone: [phone] Urine blood detectionon 02-12 RBC Ql (U) Negative Negative [facility] Work Phone: [phone] RBC Ql (U) 0 SEEN /hpf 0-5 [facility] Work Phone: [phone] Urine clarityon 02-25-2022 Clarity (U) Clear Clear [facility] Work Phone: Urine color determinationon 02-25-2022 Color (U) Yellow Yellow [facility] Work Phone: [phone] Urine creatinine measurement (mass/volume)on 02-25-2022 Creatinine (U) [Mass/Vol] 82.80 mg/dL NO RANGE EST. [facility] Work Phone: Urine glucose detectionon Glucose Ql (U) Normal mg/dl Normal [facility] Work Phone: Urine leukocyte esterase det ection by dipstickon 02-25-2022 Leukocyte esterase Test strip Ql (U) 25 /ul Negative [facility] Work Phone: Urine pHon 02-25-2022 pH (U) 6.0 [pH] 5.0 - 8.0 [facility] [facility] Work Phone: Urine protein measurement (m ass/volume)on 02-25-2022 Protein (U) [Mass/Vol] 13.8 mg/dL 0.0-11.8 [facility] Work Phone: [phone] Urine protein/creatinine mas s ratioon 02-25-2022 Protein/Creatinine (U) [Mass ratio] 167 mg/g CRE 0-200 [facility] Work Phone: Urine sediment bacteria coun t by microscopy (number/high power field)on 02-25-2022 Bacteria LM.HPF (Urine sed) [#/Area] 0 /[HPF] None Seen [facility] Work Phone: Urine specific gravity measu rementon 02-25-2022 Specific gravity (U) [Rel density] 1.020 1.002-1.03 0 [facility] Work Phone: Urobilinogen Auto test strip Ql (U)on 02-25-2022 Urobilinogen Ql (U) Normal mg/dl Normal [facility] Work Phone: Basophil percentageon 2021 Chloride [Moles/Vol] 110 mmol/L 98-107 [facility] Work Phone: Glucose [Mass/Vol] 125 mg/dL 74-106 [facility] Work Phone: Comment on above: Fasting Glucose resu lt from 100 to 125 mg/dL suggests IMPAIRED HOMEOSTASIS per A.D.A. criteria. Potassium [Moles/Vol] 4.1 mmol/L 3.5-5.[address] [facility] Work Phone: Sodium [Moles/Vol] 139 mmol/L 136-145 [facility] Work Phone: Erythrocyte sedimentation ra meredith 02-18-2022 ESR (Bld) [Velocity] 12 mm/h 0-20 [facility] Work Phone: Laboratory - Chemistry and C hemistry - challengeon 02-18-2022 CO2 [Moles/Vol] 24.0 mmol/L 21.0-32.0 [facility] Work Phone: Urea nitrogen/Creatinine [Mass ratio] 11.8 mg/mg 10-20 [facility] Work Phone: No Panel Informationon 02-18 Estimated GFR (MDRD) Amer 48 mL/min >60 [facility] Work Phone: Comment on above: GFR Calc Estimated GFR (MDRD) Non-Af Amer 40 mL/min >60 [facility] Work Phone: Comment on above: Non- GFR Calc Serum or plasma calcium you urement (mass/volume)on 02-18-2022 Calcium [Mass/Vol] 8.7 mg/dL 8.5-10.1 [facility] Work Phone: Serum or plasma creatinine m easurement (mass/volume)on 02-18-2022 Creatinine [Mass/Vol] 1.86 mg/dL 0.70-1.[address] [facility] Work Phone: Comment on above: The validity of the calculated GFR & GFRAA in patients over 70 years has not been determined. Clinical correlation is essential. Serum or plasma urea nitroge n measurement (mass/volume)on 02-18-2022 Urea nitrogen [Mass/Vol] 22 mg/dL 7-18 [facility] Work Phone: Serum or plasma uric acid me asurement (mass/volume)on 02-18-2022 Urate [Mass/Vol] 7.2 mg/dL 3.5-7.2 [facility] Work Phone: Comment on above: The drugs N-Acetylcy steine and Metamizole may falsely depress this assay. Thin prep Papanicolaou smear with manual screeningon 02-18-2022 Thin prep Papanicolaou smear with manual screening 5 5-15 [facility] Work Phone: Absolute lymphocyte counton 01-28-2022 Lymphocytes Auto (Unsp spec) [#/Vol] 1.90 10*3/uL 0.83-4.51 [facility] Work Phone: Basophil percentageon 2021 Basophil percentage 0 SEEN /hpf 0-5 [facility] Work Phone: Basophil percentage 2.7 mg/dL 2.5-4.9 [facility] Work Phone: Basophils/100 WBC (Bld) 0.5 % 0-1 [facility] Work Phone: Chloride [Moles/Vol] 110 mmol/L 98-107 [facility] Work [facility]: Eosinophils/100 WBC (Bld) 0.4 % 0-5 [facility] Work Phone: Glucose [Mass/Vol] 129 mg/dL 74-106 [facility] Work Phone: Comment on above: Fasting Glucose resu lt greater than or equal to 126 mg/dL suggests DIABETES MELLITUS per A.D.A. criteria. Neutrophils (Bld) [#/Vol] 8.0 10*3/uL 2.0-7.7 [facility] Work Phone: Neutrophils/100 WBC (Bld) 70.6 % 47-70 [facility] Work Phone: Potassium [Moles/Vol] 3.8 mmol/L 3.5-5.[address] [facility] Work Phone: Sodium [Moles/Vol] 141 mmol/L 136-145 [facility] Work Phone: WBC (Bld) [#/Vol] 11.3 10*3/uL 4.4-11.0 [facility] Work Phone: [phone] Bilirubin Test strip Ql (U)o n 01-28-2022 Bilirubin Ql (U) Negative Negative [facility] Work Phone: Blood erythrocytes count (nu mber/volume)on 01-28-2022 RBC (Bld) [#/Vol] 4.23 10*6/uL 4.6-6.2 [facility] Work Phone: Blood hemoglobin measurement (mass/volume)on 01-28-2022 Hemoglobin (Bld) [Mass/Vol] 12.6 g/dL 13.0-16.5 [facility] Work Phone: Blood lymphocytes/100 leukoc yteson 01-28-2022 Lymphocytes/100 WBC (Bld) 16.8 % 19-41 [facility] Work Phone: Blood monocytes/100 leukocyt eson 03-17-2022 Monocytes/100 WBC (Bld) 10.0 % 0-10 [facility] Work Phone: Blood platelet mean volumeon 01-28-2022 Platelet mean volume (Bld) [Entitic vol] 9.3 fL 6.2-12.0 [facility] Work Phone: Determination of erythrocyte mean corpuscular volume (MCV)on 01-28-2022 MCV (RBC) [Entitic vol] 91.3 fL 80-94 [facility] Work Phone: [phone] Hematocrit Auto (Bld) [Volum e fraction]on 01-28-2022 Hematocrit (Bld) [Volume fraction] 38.6 % 40-54 [facility] Work Phone: [phone] Ketones Test strip Ql (U)on 01-28-2022 Ketones Ql (U) Negative Negative [facility] Work Phone: Laboratory - Chemistry and C hemistry - challengeon 01-28-2022 CO2 [Moles/Vol] 25.0 mmol/L 21.0-32.0 [facility] Work Phone: [phone] Urea nitrogen/Creatinine [Mass ratio] 14.7 mg/mg 10-20 [facility] Work Phone: Laboratory - Hematology and Cell countson 01-28-2022 Erythrocyte distribution width (RBC) [Entitic vol] 45.7 fL 35.1-43.9 [facility] Work Phone: [phone] Erythrocyte distribution width (RBC) [Ratio] 13.7 % 11.6-14.6 [facility] Work Phone: [phone] Immature granulocytes/100 WBC (Bld) 1.700 % 0.0-0.9 [facility] Work Phone: Comment on above: IG% - Immature Granu locytes (promyelocytes, myelocytes and metamyelocytes) > 1% indicates that a LEFT SHIFT is Present. MCH (RBC) [Entitic mass] 29.8 pg 27.0-32.0 [facility] Work Phone: [phone] Nucleated RBC/100 WBC (Bld) [Ratio] 0 % 0-5 [facility] Work Phone: MCHC Auto (RBC) [Mass/Vol]on 01-28-2022 MCHC (RBC) [Mass/Vol] 32.6 g/dL 32-[address] [facility] Work Phone: Mucus LM Ql (Urine sed)on Mucus Ql (Urine sed) 0 SEEN /hpf [facility] Work Phone: Nitrite Test strip Ql (U)on 01-28-2022 Nitrite Ql (U) Negative Negative [facility] Work Phone: No Panel Informationon 01-28 Urine Microalbumin/Creatinine Ratio 77.0 mg/g CRE <30 [facility] Work Phone: Estimated GFR (MDRD) Amer 56 mL/min >60 [facility] Work Phone: Comment on above: GFR Calc Estimated GFR (MDRD) Non-Af Amer 46 mL/min >60 [facility] Work Phone: Comment on above: Non- GFR Calc Platelets bldon 01-28-2022 Platelets (Bld) [#/Vol] 240 10*3/uL 150-450 [facility] Work Phone: Protein Test strip Ql (U)on 01-28-2022 Protein Ql (U) Negative Negative [facility] Work Phone: Serum or plasma albumin you urement (mass/volume)on 01-28-2022 Albumin [Mass/Vol] 3.2 g/dL 3.2-5.0 [facility] Work Phone: Serum or plasma calcium you urement (mass/volume)on 01-28-2022 Calcium [Mass/Vol] 8.4 mg/dL 8.5-10.1 [facility] Work Phone: Serum or plasma creatinine m easurement (mass/volume)on 01-28-2022 Creatinine [Mass/Vol] 1.63 mg/dL 0.70-1.[address] [facility] Work Phone: Comment on above: The validity of the calculated GFR & GFRAA in patients over 70 years has not been determined. Clinical correlation is essential. Serum or plasma urea nitroge n measurement (mass/volume)on 01-28-2022 Urea nitrogen [Mass/Vol] 24 mg/dL 7-18 [facility] Work Phone: Squamous epithelial cells de tection in urine sediment by light microscopyon 01-28-2022 Epithelial cells.squamous LM Ql (Urine sed) 0-5 SEEN /hpf 0-5 [facility] Work Phone: Thin prep Papanicolaou smear with manual screeningon 01-28-2022 Thin prep Papanicolaou smear with manual screening 28.5 mg/L NO RANGE EST. [facility] Work Phone: Urine blood detectionon 01-12 RBC Ql (U) Negative Negative [facility] Work Phone: RBC Ql (U) 0 SEEN /hpf 0-5 [facility] Work Phone: Urine clarityon 01-28-2022 Clarity (U) Sl. Cloudy Clear [facility] Work Phone: Urine color determinationon 01-28-2022 Color (U) Yellow Yellow [facility] Work Phone: Urine creatinine measurement (mass/volume)on 01-28-2022 Creatinine (U) [Mass/Vol] 37.00 mg/dL NO RANGE EST. [facility] Work Phone: Urine glucose detectionon Glucose Ql (U) Normal mg/dl Normal [facility] Work Phone: Urine leukocyte esterase det ection by dipstickon 01-28-2022 Leukocyte esterase Test strip Ql (U) Negative Negative [facility] Work Phone: Urine pHon 01-28-2022 pH (U) 7.0 [pH] 5.0 - 8.0 [facility] Work Phone: Urine sediment bacteria coun t by microscopy (number/high power field)on 01-28-2022 Bacteria LM.HPF (Urine sed) [#/Area] 0 /[HPF] None Seen [facility] Work Phone: Urine specific gravity measu rementon 01-28-2022 Specific gravity (U) [Rel density] 1.010 1.002-1.03 0 [facility] Work Phone: Urobilinogen Auto test strip Ql (U)on 01-28-2022 Urobilinogen Ql (U) Normal mg/dl Normal [facility] Work Phone: No Panel Informationon 01-25 [place] Level 0.50 mmol/L 0.60-1.20 [facility] Work Phone: Basophil percentageon 2021 Cholesterol [Mass/Vol] 140 mg/dL <200 [facility] Work Phone: Comment on above: <200 mg/dL [...] = 500 mg/dL No Panel Informationon 01-04 [place] Level 0.50 mmol/L 0.60-1.20 [facility] Work Phone: Serum or plasma cholesterol in HDL measurement (mass/volume)on 01-04-2022 Cholesterol in HDL [Mass/Vol] 34 mg/dL >40 [facility] Work Phone: Comment on above: The drugs N-Acetylcy steine and Metamizole may falsely depress this assay. Reference Range HDL <40 mg/dL Low HDL Cholesterol HDL >or= 60 mg/dL High HDL Cholesterol Serum or plasma cholesterol in VLDL measurement (mass/volume)on 01-04-2022 Cholesterol in VLDL [Mass/Vol] 49 mg/dL 5-40 [facility] Work Phone: Serum or plasma low density lipoprotein (LDL) cholesterol measurement (mass/volume)on 01-04-2022 Cholesterol in LDL [Mass/Vol] 57 mg/dL 0-130 [facility] Work Phone: No Panel Informationon 12-07 [place] Level 0.50 mmol/L 0.60-1.20 [facility] Work Phone: Absolute lymphocyte counton 12-03-2021 Lymphocytes Auto (Unsp spec) [#/Vol] 2.02 10*3/uL 0.83-4.51 [facility] Work Phone: Basophil percentageon 2021 Basophils/100 WBC (Bld) 1.1 % 0-1 [facility] Work Phone: Chloride [Moles/Vol] 108 mmol/L 98-107 [facility] Work Phone: Eosinophils/100 WBC (Bld) 2.9 % 0-5 [facility] Work Phone: Glucose [Mass/Vol] 118 mg/dL 74-106 [facility] Work Phone: Comment on above: Fasting Glucose resu lt from 100 to 125 mg/dL suggests IMPAIRED HOMEOSTASIS per A.D.A. criteria. Neutrophils (Bld) [#/Vol] 4.3 10*3/uL 2.0-7.7 [facility] Work Phone: Neutrophils/100 WBC (Bld) 57.2 % 47-70 [facility] Work Phone: Potassium [Moles/Vol] 3.9 mmol/L 3.5-5.1 [facility] Work Phone: Sodium [Moles/Vol] 140 mmol/L 136-145 [facility] Work Phone: WBC (Bld) [#/Vol] 7.5 10*3/uL 4.4-11.0 [facility] Work Phone: [phone] Bilirubin Test strip Ql (U)o n 01-20-2022 Bilirubin Ql (U) Negative Negative [facility] Work Phone: Blood erythrocytes count (nu mber/volume)on 12-03-2021 RBC (Bld) [#/Vol] 4.70 10*6/uL 4.6-6.2 [facility] Work Phone: Blood hemoglobin measurement (mass/volume)on 12-03-2021 Hemoglobin (Bld) [Mass/Vol] 13.7 g/dL 13.0-16.5 [facility] Work Phone: Blood lymphocytes/100 leukoc yteson 12-03-2021 Lymphocytes/100 WBC (Bld) 27.1 % 19-41 [facility] Work Phone: Blood monocytes/100 leukocyt eson 12-03-2021 Monocytes/100 WBC (Bld) 11.0 % 0-10 [facility] Work Phone: [phone] Blood platelet mean volumeon 12-03-2021 Platelet mean volume (Bld) [Entitic vol] 9.1 fL 6.2-12.0 [facility] Work Phone: Culture, urineon 12-03-2021 Bacteria identified Cx Nom (U) Culture exhibits no growth. [facility] Work Phone: Determination of erythrocyte mean corpuscular volume (MCV)on 12-03-2021 MCV (RBC) [Entitic vol] 88.9 fL 80-94 [facility] Work Phone: Hematocrit Auto (Bld) [Volum e fraction]on 12-03-2021 Hematocrit (Bld) [Volume fraction] 41.8 % 40-54 [facility] Work Phone: Ketones Test strip Ql (U)on 12-03-2021 Ketones Ql (U) Negative Negative [facility] Work Phone: Laboratory - Chemistry and C hemistry - challengeon 12-03-2021 CO2 [Moles/Vol] 27.0 mmol/L 21.0-32.0 [facility] Work Phone: Urea nitrogen/Creatinine [Mass ratio] 9.7 mg/mg 10-20 [facility] Work Phone: Laboratory - Hematology and Cell countson 12-03-2021 Erythrocyte distribution width (RBC) [Entitic vol] 43.4 fL 35.1-43.9 [facility] Work Phone: Erythrocyte distribution width (RBC) [Ratio] 13.2 % 11.6-14.6 [facility] Work Phone: Immature granulocytes/100 WBC (Bld) 0.700 % 0.0-0.9 [facility] Work Phone: Comment on above: IG% - Immature Granu locytes (promyelocytes, myelocytes and metamyelocytes) > 1% indicates that a LEFT SHIFT is Present. MCH (RBC) [Entitic mass] 29.1 pg 27.0-32.0 [facility] Work Phone: Nucleated RBC/100 WBC (Bld) [Ratio] 0 % 0-5 [facility] Work Phone: MCHC Auto (RBC) [Mass/Vol]on 12-03-2021 MCHC (RBC) [Mass/Vol] 32.8 g/dL 32-[address] [facility] Work Phone: Nitrite Test strip Ql (U)on 12-03-2021 Nitrite Ql (U) Negative Negative [facility] Work Phone: No Panel Informationon 12-03 Estimated GFR (MDRD) Amer 43 mL/min >60 [facility] Work Phone: Comment on above: GFR Calc Estimated GFR (MDRD) Non-Af Amer 35 mL/min >60 [facility] Work Phone: Comment on above: Non- GFR Calc [place] Level 0.50 mmol/L 0.60-1.20 [facility] Work Phone: Platelets bldon 12-03-2021 Platelets (Bld) [#/Vol] 230 10*3/uL 150-450 [facility] Work Phone: Protein Test strip Ql (U)on 12-03-2021 Protein Ql (U) Negative Negative [facility] Work Phone: Serum or plasma calcium you urement (mass/volume)on 12-03-2021 Calcium [Mass/Vol] 8.9 mg/dL 8.5-10.1 [facility] Work Phone: Serum or plasma creatinine m easurement (mass/volume)on 12-03-2021 Creatinine [Mass/Vol] 2.07 mg/dL 0.70-1.[address] [facility] Work Phone: Comment on above: The validity of the calculated GFR & GFRAA in patients over 70 years has not been determined. Clinical correlation is essential. Serum or plasma urea nitroge n measurement (mass/volume)on 12-03-2021 Urea nitrogen [Mass/Vol] 20 mg/dL 7-18 [facility] Work Phone: Thin prep Papanicolaou smear with manual screeningon 12-03-2021 Thin prep Papanicolaou smear with manual screening 5 5-15 [facility] Work Phone: Urine blood detectionon 11-15 RBC Ql (U) Negative Negative [facility] Work Phone: Urine clarityon 12-03-2021 Clarity (U) Clear Clear [facility] Work Phone: Urine color determinationon 12-03-2021 Color (U) Yellow Yellow [facility] Work Phone: Urine glucose detectionon Glucose Ql (U) Normal mg/dl Normal [facility] Work Phone: [phone] Urine leukocyte esterase det ection by dipstickon 12-03-2021 Leukocyte esterase Test strip Ql (U) Negative Negative [facility] Work Phone: [phone] Urine pHon 12-03-2021 pH (U) 7.0 [pH] [facility] Work Phone: Urine specific gravity measu rementon 12-03-2021 Specific gravity (U) [Rel density] 1.010 [facility] Work Phone: Urobilinogen Auto test strip Ql (U)on 12-03-2021 Urobilinogen Ql (U) Normal mg/dl Normal [facility] Work Phone: [phone] No Panel Informationon 11-09 [place] Level 0.40 mmol/L 0.60-1.20 [facility] Work Phone: [phone] Absolute lymphocyte counton 11-05-2021 Lymphocytes Auto (Unsp spec) [#/Vol] 2.12 10*3/uL 0.83-4.51 [facility] Work Phone: [phone] Basophil percentageon 2020 Chloride [Moles/Vol] 110 mmol/L 98-107 [facility] Work Phone: [phone] Eosinophils/100 WBC (Bld) 2.8 % 0-5 [facility] Work Phone: Glucose [Mass/Vol] 132 mg/dL 74-106 [facility] Work Phone: Comment on above: Fasting Glucose resu lt greater than or equal to 126 mg/dL suggests DIABETES MELLITUS per A.D.A. criteria.Please note revised GLUCOSE reference range effective 2017. Neutrophils (Bld) [#/Vol] 5.7 10*3/uL 2.0-7.7 [facility] Work Phone: Potassium [Moles/Vol] 4.0 mmol/L 3.5-5.[address] [facility] Work Phone: [phone] Sodium [Moles/Vol] 143 mmol/L 136-145 [facility] Work Phone: [phone] WBC (Bld) [#/Vol] 9.3 10*3/uL 4.4-11.0 [facility] Work Phone: [phone] Basophil percentage 10-25 SEEN /hpf [facility] Work Phone: [phone] Bilirubin Test strip Ql (U)o n 11-05-2021 Bilirubin Ql (U) Negative Negative [facility] Work Phone: Blood erythrocytes count (nu mber/volume)on 11-05-2021 RBC (Bld) [#/Vol] 4.57 10*6/uL 4.6-6.2 [facility] Work Phone: [phone] Blood hemoglobin measurement (mass/volume)on 11-05-2021 Hemoglobin (Bld) [Mass/Vol] 13.4 g/dL 13.0-16.5 [facility] Work Phone: Blood lymphocytes/100 leukoc yteson 11-05-2021 Lymphocytes/100 WBC (Bld) 22.9 % 19-41 [facility] Work Phone: Blood monocytes/100 leukocyt eson 11-05-2021 Monocytes/100 WBC (Bld) 10.9 % 0-10 [facility] Work Phone: Blood platelet mean volumeon 11-05-2021 Platelet mean volume (Bld) [Entitic vol] 9.1 fL 6.2-12.0 [facility] Work Phone: Culture, urineon 11-05-2021 Bacteria identified Cx Nom (U) Streptococcus mitis/ oralis [facility] Work Phone: Determination of erythrocyte mean corpuscular volume (MCV)on 11-05-2021 MCV (RBC) [Entitic vol] 89.5 fL 80-94 [facility] Work Phone: [phone] Hematocrit Auto (Bld) [Volum e fraction]on 11-05-2021 Hematocrit (Bld) [Volume fraction] 40.9 % 40-54 [facility] Work Phone: Ketones Test strip Ql (U)on 11-05-2021 Ketones Ql (U) Negative Negative [facility] Work Phone: Laboratory - Chemistry and C hemistry - challengeon 11-05-2021 CO2 [Moles/Vol] 28.0 mmol/L 21.0-32.0 [facility] Work Phone: Urea nitrogen/Creatinine [Mass ratio] 11.6 mg/mg 10-20 [facility] Work Phone: Laboratory - Hematology and Cell countson 11-05-2021 Basophils/100 WBC (Unsp spec) 0.9 % 0-1 [facility] Work Phone: Erythrocyte distribution width (RBC) [Entitic vol] 43.5 fL 35.1-43.9 [facility] Work Phone: Erythrocyte distribution width (RBC) [Ratio] 13.3 % 11.6-14.6 [facility] Work Phone: Immature granulocytes/100 WBC (Bld) 0.600 % 0.0-0.9 [facility] Work Phone: Comment on above: IG% - Immature Granu locytes (promyelocytes, myelocytes and metamyelocytes) > 1% indicates that a LEFT SHIFT is Present. MCH (RBC) [Entitic mass] 29.3 pg 27.0-32.0 [facility] Work Phone: Neutrophils/100 WBC (Bld) 61.9 % 47-70 [facility] Work Phone: Nucleated RBC/100 WBC (Bld) [Ratio] 0 % 0-5 [facility] Work Phone: MCHC Auto (RBC) [Mass/Vol]on 11-05-2021 MCHC (RBC) [Mass/Vol] 32.8 g/dL 32-[address] [facility] Work Phone: Mucus LM Ql (Urine sed)on Mucus Ql (Urine sed) 0 SEEN /hpf [facility] Work Phone: Nitrite Test strip Ql (U)on 11-05-2021 Nitrite Ql (U) Negative Negative [facility] Work Phone: No Panel Informationon 11-05 Estimated GFR (MDRD) Amer 47 mL/min >60 [facility] Work Phone: Comment on above: GFR Calc Estimated GFR (MDRD) Non-Af Amer 39 mL/min >60 [facility] Work Phone: Comment on above: Non- GFR Calc Platelets bldon 11-05-2021 Platelets (Bld) [#/Vol] 218 10*3/uL 150-450 [facility] Work Phone: Protein Test strip Ql (U)on 11-05-2021 Protein Ql (U) 15 mg/dl Negative [facility] Work Phone: Serum or plasma albumin you urement (mass/volume)on 11-05-2021 Albumin [Mass/Vol] 2.7 g/dL 3.2-5.0 [facility] Work Phone: Serum or plasma calcium you urement (mass/volume)on 11-05-2021 Calcium [Mass/Vol] 8.7 mg/dL 8.5-10.1 [facility] Work Phone: Serum or plasma creatinine m easurement (mass/volume)on 11-05-2021 Creatinine [Mass/Vol] 1.90 mg/dL 0.70-1.[address] [facility] Work Phone: Comment on above: The validity of the calculated GFR & GFRAA in patients over 70 years has not been determined. Clinical correlation is essential. Serum or plasma urea nitroge n measurement (mass/volume)on 11-05-2021 Urea nitrogen [Mass/Vol] 22 mg/dL 7-18 [facility] Work Phone: Squamous epithelial cells de tection in urine sediment by light microscopyon 11-05-2021 Epithelial cells.squamous LM Ql (Urine sed) 0-5 SEEN /hpf [facility] Work Phone: Thin prep Papanicolaou smear with manual screeningon 11-05-2021 Thin prep Papanicolaou smear with manual screening 5 5-15 [facility] Work Phone: Urine blood detectionon 10-15 RBC Ql (U) Negative Negative [facility] Work Phone: RBC Ql (U) 0 SEEN /hpf [facility] Work Phone: Urine clarityon 11-05-2021 Clarity (U) Sl. Cloudy Clear [facility] Work Phone: Urine color determinationon 11-05-2021 Color (U) Yellow Yellow [facility] Work Phone: [phone] Urine creatinine measurement (mass/volume)on 11-05-2021 Creatinine (U) [Mass/Vol] 169.00 mg/dL NO RANGE EST. [facility] Work Phone: Urine glucose detectionon Glucose Ql (U) Normal mg/dl Normal [facility] Work Phone: [phone] Urine leukocyte esterase det ection by dipstickon 11-05-2021 Leukocyte esterase Test strip Ql (U) 100 /ul Negative [facility] Work Phone: [phone] Urine pHon 11-05-2021 pH (U) 6.0 [pH] [facility] Work Phone: Urine protein measurement (m ass/volume)on 11-05-2021 Protein (U) [Mass/Vol] 21.0 mg/dL 0.0-11.8 [facility] Work Phone: Urine protein/creatinine mas s ratioon 11-05-2021 Protein/Creatinine (U) [Mass ratio] 124 mg/g CRE 0-200 [facility] Work Phone: [phone] Urine sediment bacteria coun t by microscopy (number/high power field)on 11-05-2021 Bacteria LM.HPF (Urine sed) [#/Area] 0 /[HPF] None Seen [facility] Work Phone: Urine specific gravity measu rementon 11-05-2021 Specific gravity (U) [Rel density] 1.020 [facility] Work Phone: [phone] Urobilinogen Auto test strip Ql (U)on 11-05-2021 Urobilinogen Ql (U) Normal mg/dl Normal [facility] Work Phone: [phone] CBC Auto Differentialon 10-15 Erythrocyte distribution width (RBC) [Ratio] 14.5 % 11.5 - 14.5 % [place] Hematocrit (Bld) [Volume fraction] 42.1 % 40 - 52 % [place] Hemoglobin (Bld) [Mass/Vol] 13.8 g/dL 13 - 18 g/dL [place] Interpretation and review of laboratory results Abnormal [place] MCH (RBC) [Entitic mass] 28.8 pg 26 - 34 pg [place] MCHC (RBC) [Mass/Vol] 32.7 % 32 - 36 % [place] MCV (RBC) [Entitic vol] 88.1 fL 80 - 98 fL [place] Platelet mean volume (Bld) [Entitic vol] 7.9 fL 7.4 - 10.4 fL [place] Platelets (Bld) [#/Vol] 356 10*3/uL 140 - 440 10*3/uL [place] RBC (Bld) [#/Vol] 4.78 10*6/uL 4.4 - 5.9 10*6/uL [place] WBC (Bld) [#/Vol] 16.4 10*3/uL High 3.6 - 10.7 10*3/uL [place] Test Performed by [facility], [address] [place] [address] [place] Comp Panel with Mg Reflexon 11-04-2020 Calcium [Mass/Vol] 8.9 mg/dL Normal 8.4-10.4 [facility] Comment on above: Performed By: #### H EMOG, CMP3M, CRP2, LDH3, FIBGN, DDI2, APTT, FERR3 #### [facility] [address] [place] [address] ALP [Catalytic activity/Vol] 83 U/L Normal 38-126 [facility] Comment on above: Performed By: #### H EMOG, CMP3M, CRP2, LDH3, FIBGN, DDI2, APTT, FERR3 #### [facility] [address] [place] [address] ALT [Catalytic activity/Vol] 133 U/L High 0-49 [facility] Comment on above: Result Comment: The ALT test is performed by an updated assay method. Please note that the reference intervals have been changed and are now sex specific. Performed By: #### H EMOG, CMP3M, CRP2, LDH3, FIBGN, DDI2, APTT, FERR3 #### [facility] [address] [place] [address] Anion gap [Moles/Vol] 9 Normal [facility] Comment on above: Performed By: #### H EMOG, CMP3M, CRP2, LDH3, FIBGN, DDI2, APTT, FERR3 #### [facility] [address] [place] [address] AST [Catalytic activity/Vol] 39 U/L Normal 15-46 [facility] Comment on above: Performed By: #### H EMOG, CMP3M, CRP2, LDH3, FIBGN, DDI2, APTT, FERR3 #### [facility] [address] [place] [address] Bilirubin [Mass/Vol] 0.6 mg/dL Normal 0.2-1.3 [facility] Comment on above: Performed By: #### H EMOG, CMP3M, CRP2, LDH3, FIBGN, DDI2, APTT, FERR3 #### [facility] [address] [place] [address] CO2 [Moles/Vol] 20 mmol/L Low 22-30 [facility] Comment on above: Performed By: #### H EMOG, CMP3M, CRP2, LDH3, FIBGN, DDI2, APTT, FERR3 #### [facility] [address] [place] [address] Glucose [Mass/Vol] 140 mg/dL High 70-100 [facility] Comment on above: Performed By: #### H EMOG, CMP3M, CRP2, LDH3, FIBGN, DDI2, APTT, FERR3 #### [facility] [address] [place] [address] Protein [Mass/Vol] 6.1 g/dL Low 6.3-8.2 [facility] Comment on above: Performed By: #### H EMOG, CMP3M, CRP2, LDH3, FIBGN, DDI2, APTT, FERR3 #### [facility] [address] [place] [address] Urea nitrogen [Mass/Vol] 41 mg/dL High 7-20 [facility] Comment on above: Performed By: #### H EMOG, CMP3M, CRP2, LDH3, FIBGN, DDI2, APTT, FERR3 #### [facility] [address] [place] [address] Creatinine [Mass/Vol] 1.84 mg/dL High 0.52-1.25 [facility] Comment on above: Performed By: #### H EMOG, CMP3M, CRP2, LDH3, FIBGN, DDI2, APTT, FERR3 #### [facility] [address] [place] [address] GFR/1.73 sq M predicted among blacks MDRD (S/P/Bld) [Vol rate/Area] 46.0 mL/min/{1.73_m2} Abnormal >60 [facility] Comment on above: Performed By: #### H EMOG, CMP3M, CRP2, LDH3, FIBGN, DDI2, APTT, FERR3 #### [facility] [address] [place] [address] GFR/1.73 sq M predicted among non-blacks MDRD (S/P/Bld) [Vol rate/Area] 39.7 mL/min/{1.73_m2} Abnormal >60 [facility] Comment on above: Result Comment: KDIG O [...] CRP2, LDH3, FIBGN, DDI2, APTT, FERR3 #### [facility] [address] [place] [address] Albumin [Mass/Vol] 3.4 g/dL Low 3.5-5.0 [facility] Comment on above: Performed By: #### H EMOG, CMP3M, CRP2, LDH3, FIBGN, DDI2, APTT, FERR3 #### [facility] [address] [place] [address] Chloride [Moles/Vol] 106 mmol/L Normal 98-107 [facility] Comment on above: Performed By: #### H EMOG, CMP3M, CRP2, LDH3, FIBGN, DDI2, APTT, FERR3 #### [facility] [address] [place] [address] Potassium [Moles/Vol] 4.3 mmol/L Normal 3.5-5.1 [facility] Comment on above: Performed By: #### H EMOG, CMP3M, CRP2, LDH3, FIBGN, DDI2, APTT, FERR3 #### [facility] [address] [place] [address] Sodium [Moles/Vol] 134 mmol/L Low 135-145 [facility] Comment on above: Performed By: #### H EMOG, CMP3M, CRP2, LDH3, FIBGN, DDI2, APTT, FERR3 #### [facility] [address] [place] [address] Comprehensive Metabolic Pane l w/ Reflex to MGon 11-04-2020 Albumin [Mass/Vol] 3.4 g/dL Low 3.5 - 5 g/dL [place] ALP [Catalytic activity/Vol] 83 U/L 38 - 126 U/L [place] ALT [Catalytic activity/Vol] 133 U/L High 0 - 49 U/L [place] Comment on above: The ALT test is perf ormed by an updated assay method. Please note that the reference intervals have been changed and are now sex specific. Anion gap [Moles/Vol] 9 mmol/L [place] AST [Catalytic activity/Vol] 39 U/L 15 - 46 U/L [place] Bilirubin Ql (U) 0.6 mg/dL 0.2 - 1.3 mg/dL [place] Calcium [Mass/Vol] 8.9 mg/dL 8.4 - 10. 4 mg/dL [place] Chloride [Moles/Vol] 106 mmol/L 98 - 10 7 mmol/L [place] CO2 [Moles/Vol] 20 mmol/L Low 22 - 30 mmol/L [place] Creatinine [Mass/Vol] 1.84 mg/dL High 0.52 - 1.25 mg/dL [place] EGFR IF NonAfrican [place]ritrean 39.7 mL/min Abnormal >60 [place] Comment on above: KDIGO guidelines pro [...] (S/P/Bld) [Vol rate/Area] 46.0 mL/min/{1.73_m2} Abnormal >60 [place] Glucose [Mass/Vol] 140 mg/dL High 70 - 100 mg/dL [place] Interpretation and review of laboratory results Abnormal [place] Potassium [Moles/Vol] 4.3 mmol/L 3.5 - 5.1 mmol/L [place] Protein [Mass/Vol] 6.1 g/dL Low 6.3 - 8.2 g/dL [place] Sodium [Moles/Vol] 134 mmol/L Low 135 - 145 mmol/L [place] Urea nitrogen [Mass/Vol] 41 mg/dL High 7 - 20 mg/dL [place] Test Performed by [facility], [address] [place] [address] [place] Hemogram w/ Autodiffon 11-04 Erythrocyte distribution width (RBC) [Ratio] 14.5 % Normal 11.5-14.5 [facility] Comment on above: Performed By: #### H EMOG, CMP3M, CRP2, LDH3, FIBGN, DDI2, APTT, FERR3 #### [facility] [address] [place] [address] Hematocrit (Bld) [Volume fraction] 42.1 % Normal 40.0-52.0 [facility] Comment on above: Performed By: #### H EMOG, CMP3M, CRP2, LDH3, FIBGN, DDI2, APTT, FERR3 #### [facility] [address] [place] [address] Hemoglobin (Bld) [Mass/Vol] 13.8 g/dL Normal 13.0-18.0 [facility] Comment on above: Performed By: #### H EMOG, CMP3M, CRP2, LDH3, FIBGN, DDI2, APTT, FERR3 #### [facility] [address] [place] [address] MCH (RBC) [Entitic mass] 28.8 pg Normal 26.0-34.0 [facility] Comment on above: Performed By: #### H EMOG, CMP3M, CRP2, LDH3, FIBGN, DDI2, APTT, FERR3 #### [facility] [address] [place] [address] MCHC (RBC) [Mass/Vol] 32.7 % Normal 32.0-36.0 [facility] Comment on above: Performed By: #### H EMOG, CMP3M, CRP2, LDH3, FIBGN, DDI2, APTT, FERR3 #### [facility] [address] [place] [address] MCV (RBC) [Entitic vol] 88.1 fL Normal 80.0-98.0 [facility] Comment on above: Performed By: #### H EMOG, CMP3M, CRP2, LDH3, FIBGN, DDI2, APTT, FERR3 #### [facility] [address] [place] [address] Platelet mean volume (Bld) [Entitic vol] 7.9 fL Normal 7.4-10.4 [facility] Comment on above: Performed By: #### H EMOG, CMP3M, CRP2, LDH3, FIBGN, DDI2, APTT, FERR3 #### [facility] [address] [place] [address] Platelets (Bld) [#/Vol] 356 10*3/uL Normal 140-440 [facility] Comment on above: Performed By: #### H EMOG, CMP3M, CRP2, LDH3, FIBGN, DDI2, APTT, FERR3 #### [facility] [address] [place] [address] RBC (Bld) [#/Vol] 4.78 10*6/uL Normal 4.40-5.90 [facility] Comment on above: Performed By: #### H EMOG, CMP3M, CRP2, LDH3, FIBGN, DDI2, APTT, FERR3 #### [facility] [address] [place] [address] WBC (Bld) [#/Vol] 16.4 10*3/uL High 3.6-10.7 [facility] Comment on above: Performed By: #### H EMOG, CMP3M, CRP2, LDH3, FIBGN, DDI2, APTT, FERR3 #### [facility] [address] [place] [address] Manual Diffon 11-04-2020 Abs Baso Cnt 0.0 10*3/uL Normal 0.0-0.2 [facility] Comment on above: Performed By: #### H EMOG, CMP3M, CRP2, LDH3, FIBGN, DDI2, APTT, FERR3 #### [facility] [address] [place] [address] Abs Eosin Cnt 0.0 10*3/uL Normal 0.0-0.5 [facility] Comment on above: Performed By: #### H EMOG, CMP3M, CRP2, LDH3, FIBGN, DDI2, APTT, FERR3 #### [facility] [address] [place] [address] Abs Lymph Cnt 1.0 10*3/uL Low 1.1-4.5 [facility] Comment on above: Performed By: #### H EMOG, CMP3M, CRP2, LDH3, FIBGN, DDI2, APTT, FERR3 #### [facility] [address] [place] [address] Abs Monocyte Cnt 1.3 10*3/uL High 0.2-1.1 [facility] Comment on above: Performed By: #### H EMOG, CMP3M, CRP2, LDH3, FIBGN, DDI2, APTT, FERR3 #### [facility] [address] [place] [address] Abs Neutrophile Cnt 13.1 10*3/uL High 2.2-8.2 [facility] Comment on above: Performed By: #### H EMOG, CMP3M, CRP2, LDH3, FIBGN, DDI2, APTT, FERR3 #### [facility] [address] [place] [address] Anisocytosis Ql (Bld) Slight Normal [facility] Comment on above: Performed By: #### H EMOG, CMP3M, CRP2, LDH3, FIBGN, DDI2, APTT, FERR3 #### [facility] [address] [place] [address] Bands 2 % Normal 0-3 [facility] Comment on above: Performed By: #### H EMOG, CMP3M, CRP2, LDH3, FIBGN, DDI2, APTT, FERR3 #### [facility] [address] [place] [address] Basophils 0 % Normal 0-2 [facility] Comment on above: Performed By: #### H EMOG, CMP3M, CRP2, LDH3, FIBGN, DDI2, APTT, FERR3 #### [facility] [address] [place] [address] [place] Cells Slight Normal [facility] Comment on above: Performed By: #### H EMOG, CMP3M, CRP2, LDH3, FIBGN, DDI2, APTT, FERR3 #### [facility] [address] [place] [address] Cells counted 100 Normal [facility] Comment on above: Performed By: #### H EMOG, CMP3M, CRP2, LDH3, FIBGN, DDI2, APTT, FERR3 #### [facility] [address] [place] [address] Eosinophils 0 % Low 1-6 [facility] Comment on above: Performed By: #### H EMOG, CMP3M, CRP2, LDH3, FIBGN, DDI2, APTT, FERR3 #### [facility] [address] [place] [address] Lymphocytes 6 % Low 20-40 [facility] Comment on above: Performed By: #### H EMOG, CMP3M, CRP2, LDH3, FIBGN, DDI2, APTT, FERR3 #### [facility] [address] [place] [address] Metamyelocytes 5 % Abnormal <1 [facility] Comment on above: Performed By: #### H EMOG, CMP3M, CRP2, LDH3, FIBGN, DDI2, APTT, FERR3 #### [facility] [address] [place] [address] Monocytes 8 % Normal 2-10 [facility] Comment on above: Performed By: #### H EMOG, CMP3M, CRP2, LDH3, FIBGN, DDI2, APTT, FERR3 #### [facility] [address] [place] [address] Myelocytes 1 % Abnormal <1 [facility] Comment on above: Performed By: #### H EMOG, CMP3M, CRP2, LDH3, FIBGN, DDI2, APTT, FERR3 #### [facility] [address] [place] [address] Poikilocytosis Slight Normal [facility] Comment on above: Performed By: #### H EMOG, CMP3M, CRP2, LDH3, FIBGN, DDI2, APTT, FERR3 #### [facility] [address] [place] [address] RBC morphology finding Nom (Bld) ABNORMAL Normal [facility] Comment on above: Performed By: #### H EMOG, CMP3M, CRP2, LDH3, FIBGN, DDI2, APTT, FERR3 #### [facility] [address] [place] [address] Seg Neutrophils 78 % Normal 40-80 [facility] Comment on above: Performed By: #### H EMOG, CMP3M, CRP2, LDH3, FIBGN, DDI2, APTT, FERR3 #### [facility] [address] [place] [address] Manual Differentialon 2019 Absolute Baso # 0.0 10*3/uL 0 - 0.2 10*3/uL [facility], [place] Absolute Eos # 0.0 10*3/uL 0 - 0.5 10*3/uL [place] Absolute Lymph # 1.0 10*3/uL Low 1.1 - 4.5 10*3/uL [facility], [place] Absolute [place] # 1.3 10*3/uL High 0.2 - 1.1 10*3/uL [facility], [place] Absolute Neut # 13.1 10*3/uL High 2.2 - 8.2 10*3/uL [facility], [place] Anisocytosis Ql (Bld) Slight [facility], [place] Bands 2 % 0 - 3 % [facility], [place] Basophils 0 % 0 - 2 % [facility] Cells Slight [facility], [place] Eosinophils 0 % Low 1 - 6 % [facility], [place] Interpretation and review of laboratory results Abnormal [place] Lymphocytes 6 % Low 20 - 40 % [facility], [place] Metamyelocytes 5 % Abnormal <1 [facility], [place] Monocytes 8 % 2 - 10 % [place] Myelocytes 1 % Abnormal <1 [place] Poikilocytes Slight [place] RBC morphology finding Nom (Bld) ABNORMAL [place] Seg Neutrophils 78 % 40 - 80 % [place] TOTAL CELLS COUNTED 100 [place] Test Performed by [facility], [address], [place], [place] [address] [place] Add On Lab Teston 11-03-2020 Sodium [Moles/Vol] Accepted [place] Comment on above: Specimen available & acceptable for analysis. Test Performed by [facility], [address], [place], [place] [address] [place] Add on test from HISon 11-03 Add on test from HIS Accepted Normal [facility] Comment on above: Result Comment: Spec imen available & acceptable for analysis. Performed By: #### H EMOG, CMP3M, CRP2, LDH3, FIBGN, DDI2, APTT, FERR3 #### [facility] [address] [place] [address] CBC Auto Differentialon 10-15 Erythrocyte distribution width (RBC) [Ratio] 14.3 % 11.5 - 14.5 % [place] Hematocrit (Bld) [Volume fraction] 39.0 % Low 40 - 52 % [place] Hemoglobin (Bld) [Mass/Vol] 12.8 g/dL Low 13 - 18 g/dL [place] Interpretation and review of laboratory results Abnormal [place] MCH (RBC) [Entitic mass] 28.7 pg 26 - 34 pg [place] MCHC (RBC) [Mass/Vol] 32.8 % 32 - 36 % [place] MCV (RBC) [Entitic vol] 87.6 fL 80 - 98 fL [place] Platelet mean volume (Bld) [Entitic vol] 7.5 fL 7.4 - 10.4 fL [place] Platelets (Bld) [#/Vol] 332 10*3/uL 140 - 440 10*3/uL [place] RBC (Bld) [#/Vol] 4.45 10*6/uL 4.4 - 5.9 10*6/uL [place] WBC (Bld) [#/Vol] 15.6 10*3/uL High 3.6 - 10.7 10*3/uL [place] Test Performed by [facility], [address], [place], [place] [address] [place] CR Chest PA/LATon 11-03-2020 CR Chest PA/LAT Patient Name: REGGIE WILSON Diagnostic Radiology ACCESSION EXAM DATE/TIME PROCEDURE ORDERING PROVIDER [id number] 11/03/2020 10:20 EST CR Chest PA and LAT MD EMILY, FARRUKH MCCORMICK CPT code 80017 Reason For Exam (CR Chest PA and [...] Transcribed Date and Time: 11/03/2020 10:59 Normal [facility] Comp Panel with Mg Reflexon 11-03-2020 Calcium [Mass/Vol] 9.0 mg/dL Normal 8.4-10.4 [facility] Comment on above: Performed By: #### H EMOG, CMP3M, CRP2, LDH3, FIBGN, DDI2, APTT, FERR3 #### [facility] [address] [place] [address] Anion gap [Moles/Vol] 5 Normal [facility] Comment on above: Performed By: #### H EMOG, CMP3M, CRP2, LDH3, FIBGN, DDI2, APTT, FERR3 #### [facility] [address] [place] [address] Bilirubin [Mass/Vol] 0.7 mg/dL Normal 0.2-1.3 [facility] Comment on above: Performed By: #### H EMOG, CMP3M, CRP2, LDH3, FIBGN, DDI2, APTT, FERR3 #### [facility] [address] [place] [address] Creatinine [Mass/Vol] 2.08 mg/dL High 0.52-1.25 [facility] Comment on above: Performed By: #### H EMOG, CMP3M, CRP2, LDH3, FIBGN, DDI2, APTT, FERR3 #### [facility] [address] [place] [address] GFR/1.73 sq M predicted among blacks MDRD (S/P/Bld) [Vol rate/Area] 39.6 mL/min/{1.73_m2} Abnormal >60 [facility] Comment on above: Performed By: #### H EMOG, CMP3M, CRP2, LDH3, FIBGN, DDI2, APTT, FERR3 #### [facility] [address] [place] [address] GFR/1.73 sq M predicted among non-blacks MDRD (S/P/Bld) [Vol rate/Area] 34.2 mL/min/{1.73_m2} Abnormal >60 [facility] Comment on above: Result Comment: KDIG O [...] CRP2, LDH3, FIBGN, DDI2, APTT, FERR3 #### [facility] [address] [place] [address] Albumin [Mass/Vol] 3.4 g/dL Low 3.5-5.0 [facility] Comment on above: Performed By: #### H EMOG, CMP3M, CRP2, LDH3, FIBGN, DDI2, APTT, FERR3 #### [facility] [address] [place] [address] Chloride [Moles/Vol] 107 mmol/L Normal 98-107 [facility] Comment on above: Performed By: #### H EMOG, CMP3M, CRP2, LDH3, FIBGN, DDI2, APTT, FERR3 #### [facility] [address] [place] [address] Potassium [Moles/Vol] 3.8 mmol/L Normal 3.5-5.1 [facility] Comment on above: Performed By: #### H EMOG, CMP3M, CRP2, LDH3, FIBGN, DDI2, APTT, FERR3 #### [facility] [address] [place] [address] Sodium [Moles/Vol] 134 mmol/L Low 135-145 [facility] Comment on above: Performed By: #### H EMOG, CMP3M, CRP2, LDH3, FIBGN, DDI2, APTT, FERR3 #### [facility] [address] [place] [address] ALP [Catalytic activity/Vol] 83 U/L Normal 38-126 [place] Comment on above: Performed By: #### H EMOG, CMP3M, CRP2, LDH3, FIBGN, DDI2, APTT, FERR3 #### [facility] [address] [place] [address] ALT [Catalytic activity/Vol] 175 U/L High 0-49 [place] Comment on above: Result Comment: The ALT test is performed by an updated assay method. Please note that the reference intervals have been changed and are now sex specific. Performed By: #### H EMOG, CMP3M, CRP2, LDH3, FIBGN, DDI2, APTT, FERR3 #### [facility] [address] [place] [address] The ALT test is perf ormed by an updated assay method. Please note that the reference intervals have been changed and are now sex specific. AST [Catalytic activity/Vol] 63 U/L High 15-46 [place] Comment on above: Performed By: #### H EMOG, CMP3M, CRP2, LDH3, FIBGN, DDI2, APTT, FERR3 #### [place] [address] [place] [address] CO2 [Moles/Vol] 21 mmol/L Low 22-30 [place] Comment on above: Performed By: #### H EMOG, CMP3M, CRP2, LDH3, FIBGN, DDI2, APTT, FERR3 #### [facility] [address] [place] [address] Glucose [Mass/Vol] 139 mg/dL High 70-100 [place] Comment on above: Performed By: #### H EMOG, CMP3M, CRP2, LDH3, FIBGN, DDI2, APTT, FERR3 #### [place] [address] [facility] [place] [address] Protein [Mass/Vol] 5.9 g/dL Low 6.3-8.2 [place] Comment on above: Performed By: #### H EMOG, CMP3M, CRP2, LDH3, FIBGN, DDI2, APTT, FERR3 #### [facility] [address] [place] [address] Urea nitrogen [Mass/Vol] 43 mg/dL High 7-20 [place] Comment on above: Performed By: #### H EMOG, CMP3M, CRP2, LDH3, FIBGN, DDI2, APTT, FERR3 #### [facility] [address] [place] [address] Comprehensive Metabolic Pane l w/ Reflex to MGon 11-03-2020 Albumin [Mass/Vol] 3.4 g/dL Low 3.5 - 5 g/dL [place] Anion gap [Moles/Vol] 5 mmol/L [place] Bilirubin Ql (U) 0.7 mg/dL 0.2 - 1.3 mg/dL [place] Calcium [Mass/Vol] 9.0 mg/dL 8.4 - 10. 4 mg/dL [place] Chloride [Moles/Vol] 107 mmol/L 98 - 10 7 mmol/L [place] Creatinine [Mass/Vol] 2.08 mg/dL High 0.52 - 1.25 mg/dL [place] EGFR IF NonAfrican [place]an 34.2 mL/min Abnormal >60 [place] Comment on above: KDIGO guidelines pro [...] (S/P/Bld) [Vol rate/Area] 39.6 mL/min/{1.73_m2} Abnormal >60 [place] Interpretation and review of laboratory results Abnormal [place] Potassium [Moles/Vol] 3.8 mmol/L 3.5 - 5.1 mmol/L [place] Sodium [Moles/Vol] 134 mmol/L Low 135 - 145 mmol/L [place] Test Performed by [facility], [address] [place] [address] [facility], [place] Hemogram w/ Autodiffon 11-03 Erythrocyte distribution width (RBC) [Ratio] 14.3 % Normal 11.5-14.5 [facility] Comment on above: Performed By: #### H EMOG, CMP3M, CRP2, LDH3, FIBGN, DDI2, APTT, FERR3 #### [facility] [address] [place] [address] Hematocrit (Bld) [Volume fraction] 39.0 % Low 40.0-52.0 [facility] Comment on above: Performed By: #### H EMOG, CMP3M, CRP2, LDH3, FIBGN, DDI2, APTT, FERR3 #### [facility] [address] [place] [address] Hemoglobin (Bld) [Mass/Vol] 12.8 g/dL Low 13.0-18.0 [facility] Comment on above: Performed By: #### H EMOG, CMP3M, CRP2, LDH3, FIBGN, DDI2, APTT, FERR3 #### [facility] [address] [place] [address] MCH (RBC) [Entitic mass] 28.7 pg Normal 26.0-34.0 [facility] Comment on above: Performed By: #### H EMOG, CMP3M, CRP2, LDH3, FIBGN, DDI2, APTT, FERR3 #### [facility] [address] [place] [address] MCHC (RBC) [Mass/Vol] 32.8 % Normal 32.0-36.0 [facility] Comment on above: Performed By: #### H EMOG, CMP3M, CRP2, LDH3, FIBGN, DDI2, APTT, FERR3 #### [facility] [address] [place] [address] MCV (RBC) [Entitic vol] 87.6 fL Normal 80.0-98.0 [facility] Comment on above: Performed By: #### H EMOG, CMP3M, CRP2, LDH3, FIBGN, DDI2, APTT, FERR3 #### [facility] [address] [place] [address] Platelet mean volume (Bld) [Entitic vol] 7.5 fL Normal 7.4-10.4 [facility] Comment on above: Performed By: #### H EMOG, CMP3M, CRP2, LDH3, FIBGN, DDI2, APTT, FERR3 #### [facility] [address] [place] [address] Platelets (Bld) [#/Vol] 332 10*3/uL Normal 140-440 [facility] Comment on above: Performed By: #### H EMOG, CMP3M, CRP2, LDH3, FIBGN, DDI2, APTT, FERR3 #### [facility] [address] [place] [address] RBC (Bld) [#/Vol] 4.45 10*6/uL Normal 4.40-5.90 [facility] Comment on above: Performed By: #### H EMOG, CMP3M, CRP2, LDH3, FIBGN, DDI2, APTT, FERR3 #### [facility] [address] [place] [address] WBC (Bld) [#/Vol] 15.6 10*3/uL High 3.6-10.7 [facility] Comment on above: Performed By: #### H EMOG, CMP3M, CRP2, LDH3, FIBGN, DDI2, APTT, FERR3 #### [facility] [address] [place] [address] Manual Diffon 11-03-2020 Abs Lymph Cnt 2.0 10*3/uL Normal 1.1-4.5 [facility] Comment on above: Performed By: #### H EMOG, CMP3M, CRP2, LDH3, FIBGN, DDI2, APTT, FERR3 #### [facility] [address] [place] [address] Abs Monocyte Cnt 2.2 10*3/uL High 0.2-1.1 [facility] Comment on above: Performed By: #### H EMOG, CMP3M, CRP2, LDH3, FIBGN, DDI2, APTT, FERR3 #### [facility] [address] [place] [id number] Abs Neutrophile Cnt 11.4 10*3/uL High 2.2-8.2 [facility] Comment on above: Performed By: #### H EMOG, CMP3M, CRP2, LDH3, FIBGN, DDI2, APTT, FERR3 #### [facility] [address] [place] [address] Anisocytosis Ql (Bld) Slight Normal [facility] Comment on above: Performed By: #### H EMOG, CMP3M, CRP2, LDH3, FIBGN, DDI2, APTT, FERR3 #### [facility] [address] [place] [id number] Bands 4 % High 0-3 [facility] Comment on above: Performed By: #### H EMOG, CMP3M, CRP2, LDH3, FIBGN, DDI2, APTT, FERR3 #### [facility] [address] [place] [facility]203 Danya Cells Slight Normal [facility] Comment on above: Performed By: #### H EMOG, CMP3M, CRP2, LDH3, FIBGN, DDI2, APTT, FERR3 #### [facility] [address] [place] [facility]203 Lymphocytes 13 % Low 20-40 [facility] Comment on above: Performed By: #### H EMOG, CMP3M, CRP2, LDH3, FIBGN, DDI2, APTT, FERR3 #### [facility] [address] [place] [id number] Monocytes 14 % High 2-10 [facility] Comment on above: Performed By: #### H EMOG, CMP3M, CRP2, LDH3, FIBGN, DDI2, APTT, FERR3 #### [facility] [address] [place] [facility]203 NRBC 1 /100{WBCs} High -1-0 [facility] Comment on above: Result Comment: Newb orn (<60 days) 1-10 Adult <1 Performed By: #### H EMOG, CMP3M, CRP2, LDH3, FIBGN, DDI2, APTT, FERR3 #### [facility] [address] [place] [address] RBC morphology finding Nom (Bld) ABNORMAL Normal [facility] Comment on above: Performed By: #### H EMOG, CMP3M, CRP2, LDH3, FIBGN, DDI2, APTT, FERR3 #### [facility] [address] [place] [address] Seg Neutrophils 69 % Normal 40-80 [facility] Comment on above: Performed By: #### H EMOG, CMP3M, CRP2, LDH3, FIBGN, DDI2, APTT, FERR3 #### [facility] [address] [place] [address] Tear Drop Forms Slight Normal [facility] Comment on above: Performed By: #### H EMOG, CMP3M, CRP2, LDH3, FIBGN, DDI2, APTT, FERR3 #### [facility] [address] [place] [address] Abs Baso Cnt 0.0 10*3/uL Normal 0.0-0.2 [facility] Comment on above: Performed By: #### H EMOG, CMP3M, CRP2, LDH3, FIBGN, DDI2, APTT, FERR3 #### [facility] [address] [place] [address] Abs Eosin Cnt 0.0 10*3/uL Normal 0.0-0.5 [facility] Comment on above: Performed By: #### H EMOG, CMP3M, CRP2, LDH3, FIBGN, DDI2, APTT, FERR3 #### [facility] [address] [place] [address] Basophils 0 % Normal 0-2 [facility] Comment on above: Performed By: #### H EMOG, CMP3M, CRP2, LDH3, FIBGN, DDI2, APTT, FERR3 #### [facility] [address] [place] [address] Cells counted 100 Normal [facility] Comment on above: Performed By: #### H EMOG, CMP3M, CRP2, LDH3, FIBGN, DDI2, APTT, FERR3 #### [facility] [address] [place] [address] Eosinophils 0 % Low 1-6 [facility] Comment on above: Performed By: #### H EMOG, CMP3M, CRP2, LDH3, FIBGN, DDI2, APTT, FERR3 #### [facility] [address] [place] [address] Manual Differentialon 2019 Absolute Baso # 0.0 10*3/uL 0 - 0.2 10*3/uL [facility], [place] Absolute Eos # 0.0 10*3/uL 0 - 0.5 10*3/uL [facility], [place] Absolute Lymph # 2.0 10*3/uL 1.1 - 4.5 10*3/uL [facility], [place] Absolute [place] # 2.2 10*3/uL High 0.2 - 1.1 10*3/uL [facility], [place] Absolute Neut # 11.4 10*3/uL High 2.2 - 8.2 10*3/uL [facility], [place] Anisocytosis Ql (Bld) Slight [facility] [place] Bands 4 % High 0 - 3 % [facility] [place] Basophils 0 % 0 - 2 % [facility] [place] Danya Cells Slight [facility], [place] Eosinophils 0 % Low 1 - 6 % [facility], [place] Interpretation and review of laboratory results Abnormal [facility], [place] Lymphocytes 13 % Low 20 - 40 % [facility], [place] Monocytes 14 % High 2 - 10 % [facility], [place] nRBC 1 /100{WBCs} High -1 - 0 /100{WBCs} [facility] [place] Comment on above: Simpson (<60 days) 1 -10 Adult <1 RBC morphology finding Nom (Bld) ABNORMAL [facility] [place] Seg Neutrophils 69 % 40 - 80 % [facility] [place] Tear Drop Cells Slight [facility] [place] TOTAL CELLS COUNTED 100 [facility] Test Performed by [facility], [address], [place] [address] [facility], [place] Procalcitoninon 11-03-2020 Procalcitonin < 0.10 Normal <0.10 [facility] Comment on above: Performed By: #### H EMOG, CMP3M, CRP2, LDH3, FIBGN, DDI2, APTT, FERR3 #### [facility] [address] [place] [address] Procalcitonin <0.10 <0.10 ng/mL [place], [place] Sodium [Moles/Vol] See Below [place] Comment on above: PCT <0.50 = Low risk of severe sepsis and/or septic shock. PCT >2.00 = High risk of severe sepsis and/or septic shock. Test Performed by [facility], [address] [place] [address] [place], [place] Interpretation See Below Normal [facility] Comment on above: Result Comment: PCT <0.50 = Low risk of severe sepsis and/or septic shock. PCT >2.00 = High risk of severe sepsis and/or septic shock. Performed By: #### H EMOG, CMP3M, CRP2, LDH3, FIBGN, DDI2, APTT, FERR3 #### [facility] [address] [place] [address] XR CHEST (2 VW)on 11-03-2020 [facility] Incoming Radiology Results From [facility] - 11/03/2020 10:59 AM EST Patient Name: REGGIE LEÓN Diagnostic Radiology ACCESSION EXAM DATE/TIME PROCEDURE ORDERING PROVIDER [id number] 11/03/2020 10:20 EST CR Chest PA & LAT MD DIAZ IMOLA KINGA CPT code 91060 Reason For Exam (CR Chest PA & [...] JEFFREY Transcribed Date and Time: 11/03/2020 10:59 [place] Patient Name: REGGIE WILSON Diagnostic Radiology ACCESSION EXAM DATE/TIME PROCEDURE ORDERING PROVIDER [id number] 11/03/2020 10:20 EST CR Chest PA & LAT MD EMILY, FARRUKH MCCORMICK CPT code 54349 Reason For Exam (CR Chest PA & [...] Improving bilateral infiltrates. Report Dictated on Workstation: [id number] --- Final --- Dictating Physician: MD BURDICK JEFFREY Signed Date and Time: 11/03/2020 10:58 am Signed by: MD BURDICK JEFFREY Transcribed Date and Time: 11/03/2020 10:59 [place] APTTon 11-02-2020 aPTT Coag (Bld) [Time] 30.4 s Normal 20.0-30.5 [facility] Comment on above: Result Comment: NOTE : The therapeutic time for Heparin anticoagulation, based on Xa activity inhibition, is an APTT of 46-80 seconds. Performed By: #### H EMOG, CMP3M, CRP2, LDH3, FIBGN, DDI2, APTT, FERR3 #### [facility] [address] [place] [address] aPTT Coag (Bld) [Time] 30.4 s 20 - 30.5 s [place] Comment on above: NOTE: The therapeuti c time for Heparin anticoagulation, based on Xa activity inhibition, is an APTT of 46-80 seconds. C-Reactive Proteinon 020 CRP [Mass/Vol] 10.2 mg/L High 0.0-6.0 [facility] Comment on above: Result Comment: . Performed By: #### H EMOG, CMP3M, CRP2, LDH3, FIBGN, DDI2, APTT, FERR3 #### [facility] [address] [place] [address] CRP [Mass/Vol] 10.2 mg/L High 0 - 6 mg/L [place] Comment on above: . CBCon 11-02-2020 Erythrocyte distribution width (RBC) [Ratio] 14.2 % 11.5 - 14.5 % [place] Hematocrit (Bld) [Volume fraction] 39.5 % Low 40 - 52 % [place] Hemoglobin (Bld) [Mass/Vol] 13.2 g/dL 13 - 18 g/dL [place] Interpretation and review of laboratory results Abnormal [place] MCH (RBC) [Entitic mass] 29.4 pg 26 - 34 pg [place] MCHC (RBC) [Mass/Vol] 33.5 % 32 - 36 % [place], [place] MCV (RBC) [Entitic vol] 87.8 fL 80 - 98 fL [place], [place] Platelet mean volume (Bld) [Entitic vol] 7.6 fL 7.4 - 10.4 fL [place] Platelets (Bld) [#/Vol] 340 10*3/uL 140 - 440 10*3/uL [place] RBC (Bld) [#/Vol] 4.49 10*6/uL 4.4 - 5.9 10*6/uL [place] WBC (Bld) [#/Vol] 13.0 10*3/uL High 3.6 - 10.7 10*3/uL [place] Test Performed by [facility], [address], [place], [place] [address] [place] Comp Panel with Mg Reflexon 11-02-2020 ALT [Catalytic activity/Vol] 198 U/L High 0-49 [facility] Comment on above: Result Comment: The ALT test is performed by an updated assay method. Please note that the reference intervals have been changed and are now sex specific. Performed By: #### H EMOG, CMP3M, CRP2, LDH3, FIBGN, DDI2, APTT, FERR3 #### [facility] [address] [place] [address] Calcium [Mass/Vol] 8.8 mg/dL Normal 8.4-10.4 [facility] Comment on above: Performed By: #### H EMOG, CMP3M, CRP2, LDH3, FIBGN, DDI2, APTT, FERR3 #### [facility] [address] [place] [address] Glucose [Mass/Vol] 135 mg/dL High 70-100 [facility] Comment on above: Performed By: #### H EMOG, CMP3M, CRP2, LDH3, FIBGN, DDI2, APTT, FERR3 #### [facility] [address] [place] [address] ALP [Catalytic activity/Vol] 85 U/L Normal 38-126 [facility] Comment on above: Performed By: #### H EMOG, CMP3M, CRP2, LDH3, FIBGN, DDI2, APTT, FERR3 #### [facility] [address] [place] [address] Anion gap [Moles/Vol] 9 Normal [facility] Comment on above: Performed By: #### H EMOG, CMP3M, CRP2, LDH3, FIBGN, DDI2, APTT, FERR3 #### [facility] [address] [place] [address] AST [Catalytic activity/Vol] 104 U/L High 15-46 [facility] Comment on above: Performed By: #### H EMOG, CMP3M, CRP2, LDH3, FIBGN, DDI2, APTT, FERR3 #### [facility] [address] [place] [address] Bilirubin [Mass/Vol] 0.7 mg/dL Normal 0.2-1.3 [facility] Comment on above: Performed By: #### H EMOG, CMP3M, CRP2, LDH3, FIBGN, DDI2, APTT, FERR3 #### [facility] [address] [place] [address] CO2 [Moles/Vol] 18 mmol/L Low 22-30 [facility] Comment on above: Performed By: #### H EMOG, CMP3M, CRP2, LDH3, FIBGN, DDI2, APTT, FERR3 #### [facility] [address] [place] [address] Creatinine [Mass/Vol] 1.89 mg/dL High 0.52-1.25 [facility] Comment on above: Performed By: #### H EMOG, CMP3M, CRP2, LDH3, FIBGN, DDI2, APTT, FERR3 #### [facility] [address] [place] [address] GFR/1.73 sq M predicted among blacks MDRD (S/P/Bld) [Vol rate/Area] 44.5 mL/min/{1.73_m2} Abnormal >60 [facility] Comment on above: Performed By: #### H EMOG, CMP3M, CRP2, LDH3, FIBGN, DDI2, APTT, FERR3 #### [facility] [address] [place] [address] GFR/1.73 sq M predicted among non-blacks MDRD (S/P/Bld) [Vol rate/Area] 38.4 mL/min/{1.73_m2} Abnormal >60 [facility] Comment on above: Result Comment: KDIG O [...] CRP2, LDH3, FIBGN, DDI2, APTT, FERR3 #### [facility] [address] [place] [address] Protein [Mass/Vol] 6.1 g/dL Low 6.3-8.2 [facility] Comment on above: Performed By: #### H EMOG, CMP3M, CRP2, LDH3, FIBGN, DDI2, APTT, FERR3 #### [facility] [address] [place] [address] Urea nitrogen [Mass/Vol] 35 mg/dL High 7-20 [facility] Comment on above: Performed By: #### H EMOG, CMP3M, CRP2, LDH3, FIBGN, DDI2, APTT, FERR3 #### [facility] [address] [place] [address] Potassium [Moles/Vol] 4.3 mmol/L Normal 3.5-5.1 [facility] Comment on above: Performed By: #### H EMOG, CMP3M, CRP2, LDH3, FIBGN, DDI2, APTT, FERR3 #### [facility] [address] [place] [address] Albumin [Mass/Vol] 3.3 g/dL Low 3.5-5.0 [facility] Comment on above: Performed By: #### H EMOG, CMP3M, CRP2, LDH3, FIBGN, DDI2, APTT, FERR3 #### [facility] [address] [place] [address] Chloride [Moles/Vol] 110 mmol/L High 98-107 [facility] Comment on above: Performed By: #### H EMOG, CMP3M, CRP2, LDH3, FIBGN, DDI2, APTT, FERR3 #### [facility] [address] [place] [address] Sodium [Moles/Vol] 137 mmol/L Normal 135-145 [facility] Comment on above: Performed By: #### H EMOG, CMP3M, CRP2, LDH3, FIBGN, DDI2, APTT, FERR3 #### [facility] [address] [place] [address] Comprehensive Metabolic Pane l w/ Reflex to MGon 11-02-2020 Albumin [Mass/Vol] 3.3 g/dL Low 3.5 - 5 g/dL [place] ALP [Catalytic activity/Vol] 85 U/L 38 - 126 U/L [place] ALT [Catalytic activity/Vol] 198 U/L High 0 - 49 U/L [place] Comment on above: The ALT test is perf ormed by an updated assay method. Please note that the reference intervals have been changed and are now sex specific. Anion gap [Moles/Vol] 9 mmol/L [place], [place] AST [Catalytic activity/Vol] 104 U/L High 15 - 46 U/L [place] Bilirubin Ql (U) 0.7 mg/dL 0.2 - 1.3 mg/dL [place] Calcium [Mass/Vol] 8.8 mg/dL 8.4 - 10. 4 mg/dL [place] Chloride [Moles/Vol] 110 mmol/L High 98 - 10 7 mmol/L [place] CO2 [Moles/Vol] 18 mmol/L Low 22 - 30 mmol/L [place] Creatinine [Mass/Vol] 1.89 mg/dL High 0.52 - 1.25 mg/dL [place] EGFR IF NonAfrican Eritrean 38.4 mL/min Abnormal >60 [place] Comment on above: KDIGO guidelines pro [...] rate/Area] 44.5 mL/min/{1.73_m2} Abnormal >60 [facility], [place] Glucose [Mass/Vol] 135 mg/dL High 70 - 100 mg/dL [facility], [place] Potassium [Moles/Vol] 4.3 mmol/L 3.5 - 5.1 mmol/L [facility], [place] Protein [Mass/Vol] 6.1 g/dL Low 6.3 - 8.2 g/dL [facility], [place] Sodium [Moles/Vol] 137 mmol/L 135 - 145 mmol/L [facility], [place] Urea nitrogen [Mass/Vol] 35 mg/dL High 7 - 20 mg/dL [place] D-Dimer, Innovanceon 12-20-2 020 D-Dimer, Innovance 0.83 mg/L High 0.00-0.50 [facility] Comment on above: Result Comment: Inno quach D-Dimer values of <0.50 mg/L FEU can be used in combination with a pre-test probability model (e.g. Well's) to exclude pulmonary embolism (PE) disease, as well as an aid in the diagnosis of deep vein thrombosis (DVT). Performed By: #### H EMOG, CMP3M, CRP2, LDH3, FIBGN, DDI2, APTT, FERR3 #### [facility] [address] [place] [address] D-Dimer, Quantitativeon 12-2 0-2020 D-Dimer, Quant 0.83 mg/L High 0 - 0.5 mg/L [place] Comment on above: Innovance D-Dimer va lues of <0.50 mg/L FEU can be used in combination with a pre-test probability model (e.g. Well's) to exclude pulmonary embolism (PE) disease, as well as an aid in the diagnosis of deep vein thrombosis (DVT). Interpretation and review of laboratory results Abnormal [place] Ferritinon 11-02-2020 Ferritin [Mass/Vol] 938 ng/mL High 18-464 [facility] Comment on above: Performed By: #### H EMOG, CMP3M, CRP2, LDH3, FIBGN, DDI2, APTT, FERR3 #### [facility] [address] [place] [address] Ferritin [Mass/Vol] 938 ng/mL High 18 - 464 ng/mL [place] Interpretation and review of laboratory results Abnormal [place] Test Performed by [facility], [address] [place] [address] [place] Fibrinogenon 11-02-2020 Fibrinogen 373 mg/dL Normal 200-400 [facility] Comment on above: Performed By: #### H EMOG, CMP3M, CRP2, LDH3, FIBGN, DDI2, APTT, FERR3 #### [facility] [address] [place] [address] Fibrinogen 373 mg/dL 200 - 400 mg/dL [place] Hemogramon 11-02-2020 Erythrocyte distribution width (RBC) [Ratio] 14.2 % Normal 11.5-14.5 [facility] Comment on above: Performed By: #### H EMOG, CMP3M, CRP2, LDH3, FIBGN, DDI2, APTT, FERR3 #### [facility] [address] [place] [address] Hematocrit (Bld) [Volume fraction] 39.5 % Low 40.0-52.0 [facility] Comment on above: Performed By: #### H EMOG, CMP3M, CRP2, LDH3, FIBGN, DDI2, APTT, FERR3 #### [facility] [address] [place] [address] Hemoglobin (Bld) [Mass/Vol] 13.2 g/dL Normal 13.0-18.0 [facility] Comment on above: Performed By: #### H EMOG, CMP3M, CRP2, LDH3, FIBGN, DDI2, APTT, FERR3 #### [facility] [address] [place] [address] MCH (RBC) [Entitic mass] 29.4 pg Normal 26.0-34.0 [facility] Comment on above: Performed By: #### H EMOG, CMP3M, CRP2, LDH3, FIBGN, DDI2, APTT, FERR3 #### [facility] [address] [place] [address] MCHC (RBC) [Mass/Vol] 33.5 % Normal 32.0-36.0 [facility] Comment on above: Performed By: #### H EMOG, CMP3M, CRP2, LDH3, FIBGN, DDI2, APTT, FERR3 #### [facility] [address] [place] [address] MCV (RBC) [Entitic vol] 87.8 fL Normal 80.0-98.0 [facility] Comment on above: Performed By: #### H EMOG, CMP3M, CRP2, LDH3, FIBGN, DDI2, APTT, FERR3 #### [facility] [address] [place] [address] Platelet mean volume (Bld) [Entitic vol] 7.6 fL Normal 7.4-10.4 [facility] Comment on above: Performed By: #### H EMOG, CMP3M, CRP2, LDH3, FIBGN, DDI2, APTT, FERR3 #### [facility] [address] [place] [address] Platelets (Bld) [#/Vol] 340 10*3/uL Normal 140-440 [facility] Comment on above: Performed By: #### H EMOG, CMP3M, CRP2, LDH3, FIBGN, DDI2, APTT, FERR3 #### [facility] [address] [place] [address] RBC (Bld) [#/Vol] 4.49 10*6/uL Normal 4.40-5.90 [facility] Comment on above: Performed By: #### H EMOG, CMP3M, CRP2, LDH3, FIBGN, DDI2, APTT, FERR3 #### [facility] [address] [place] [address] WBC (Bld) [#/Vol] 13.0 10*3/uL High 3.6-10.7 [facility] Comment on above: Performed By: #### H EMOG, CMP3M, CRP2, LDH3, FIBGN, DDI2, APTT, FERR3 #### [facility] [address] [place] [address] LDHon 11-02-2020 LDH 589 U/L High 120-246 [facility] Comment on above: Performed By: #### H EMOG, CMP3M, CRP2, LDH3, FIBGN, DDI2, APTT, FERR3 #### [facility] [address] [place] [address] Lactate Dehydrogenaseon - 0-2020 LD 589 U/L High 120 - 246 U/L [place] Otheron 11-02-2020 Test Performed by [facility], [address] [place], [place] [address] [place] [address] Interpretation and review of laboratory results Abnormal [place] Test Performed by [facility], [address] [place] [address] C-Reactive Proteinon 020 CRP [Mass/Vol] 14.1 mg/L High 0.0-6.0 [facility] Comment on above: Result Comment: . Performed By: #### H EMOG, CMP3M, CRP2, LDH3, FIBGN, DDI2, APTT, FERR3 #### [facility] [address] [place] [address] CRP [Mass/Vol] 14.1 mg/L High 0 - 6 mg/L [place] Comment on above: . Interpretation and review of laboratory results Abnormal [place] Test Performed by [facility], [address] [place] [address] Comp Panel with Mg Reflexon 11-01-2020 ALT [Catalytic activity/Vol] 173 U/L High 0-49 [facility] Comment on above: Result Comment: The ALT test is performed by an updated assay method. Please note that the reference intervals have been changed and are now sex specific. Performed By: #### H EMOG, CMP3M, CRP2, LDH3, FIBGN, DDI2, APTT, FERR3 #### [facility] [address] [place] [address] Calcium [Mass/Vol] 8.7 mg/dL Normal 8.4-10.4 [facility] Comment on above: Performed By: #### H EMOG, CMP3M, CRP2, LDH3, FIBGN, DDI2, APTT, FERR3 #### [facility] [address] [place] [address] ALP [Catalytic activity/Vol] 77 U/L Normal 38-126 [facility] Comment on above: Performed By: #### H EMOG, CMP3M, CRP2, LDH3, FIBGN, DDI2, APTT, FERR3 #### [facility] [address] [place] [address] Anion gap [Moles/Vol] 7 Normal [facility] Comment on above: Performed By: #### H EMOG, CMP3M, CRP2, LDH3, FIBGN, DDI2, APTT, FERR3 #### [facility] [address] [place] [address] AST [Catalytic activity/Vol] 135 U/L High 15-46 [facility] Comment on above: Performed By: #### H EMOG, CMP3M, CRP2, LDH3, FIBGN, DDI2, APTT, FERR3 #### [facility] [address] [place] [address] Bilirubin [Mass/Vol] 0.5 mg/dL Normal 0.2-1.3 [facility] Comment on above: Performed By: #### H EMOG, CMP3M, CRP2, LDH3, FIBGN, DDI2, APTT, FERR3 #### [facility] [address] [place] [address] CO2 [Moles/Vol] 18 mmol/L Low 22-30 [facility] Comment on above: Performed By: #### H EMOG, CMP3M, CRP2, LDH3, FIBGN, DDI2, APTT, FERR3 #### [facility] [address] [place] [address] Creatinine [Mass/Vol] 1.77 mg/dL High 0.52-1.25 [facility] Comment on above: Performed By: #### H EMOG, CMP3M, CRP2, LDH3, FIBGN, DDI2, APTT, FERR3 #### [facility] [address] [place] [address] GFR/1.73 sq M predicted among blacks MDRD (S/P/Bld) [Vol rate/Area] 48.2 mL/min/{1.73_m2} Abnormal >60 [facility] Comment on above: Performed By: #### H EMOG, CMP3M, CRP2, LDH3, FIBGN, DDI2, APTT, FERR3 #### [facility] [address] [place] [address] GFR/1.73 sq M predicted among non-blacks MDRD (S/P/Bld) [Vol rate/Area] 41.6 mL/min/{1.73_m2} Abnormal >60 [facility] Comment on above: Result Comment: KDIG O [...] CRP2, LDH3, FIBGN, DDI2, APTT, FERR3 #### [facility] [address] [place] [address] Glucose [Mass/Vol] 134 mg/dL High 70-100 [facility] Comment on above: Performed By: #### H EMOG, CMP3M, CRP2, LDH3, FIBGN, DDI2, APTT, FERR3 #### [facility] [address] [place] [address] Protein [Mass/Vol] 5.6 g/dL Low 6.3-8.2 [facility] Comment on above: Performed By: #### H EMOG, CMP3M, CRP2, LDH3, FIBGN, DDI2, APTT, FERR3 #### [facility] [address] [place] [address] Urea nitrogen [Mass/Vol] 32 mg/dL High 7-20 [facility] Comment on above: Performed By: #### H EMOG, CMP3M, CRP2, LDH3, FIBGN, DDI2, APTT, FERR3 #### [facility] [address] [place] [address] Potassium [Moles/Vol] 4.2 mmol/L Normal 3.5-5.1 [facility] Comment on above: Performed By: #### H EMOG, CMP3M, CRP2, LDH3, FIBGN, DDI2, APTT, FERR3 #### [facility] [address] [place] [address] Sodium [Moles/Vol] 137 mmol/L Normal 135-145 [facility] Comment on above: Performed By: #### H EMOG, CMP3M, CRP2, LDH3, FIBGN, DDI2, APTT, FERR3 #### [facility] [address] [place] [address] Albumin [Mass/Vol] 3.1 g/dL Low 3.5-5.0 [facility] Comment on above: Performed By: #### H EMOG, CMP3M, CRP2, LDH3, FIBGN, DDI2, APTT, FERR3 #### [facility] [address] [place] [address] Chloride [Moles/Vol] 113 mmol/L High 98-107 [facility] Comment on above: Performed By: #### H EMOG, CMP3M, CRP2, LDH3, FIBGN, DDI2, APTT, FERR3 #### [facility] [address] [place] [address] Comprehensive Metabolic Pane l w/ Reflex to MGon 11-01-2020 Albumin [Mass/Vol] 3.1 g/dL Low 3.5 - 5 g/dL [place], [place] ALP [Catalytic activity/Vol] 77 U/L 38 - 126 U/L [place] ALT [Catalytic activity/Vol] 173 U/L High 0 - 49 U/L [place] Comment on above: The ALT test is perf ormed by an updated assay method. Please note that the reference intervals have been changed and are now sex specific. Anion gap [Moles/Vol] 7 mmol/L [place], [place] AST [Catalytic activity/Vol] 135 U/L High 15 - 46 U/L [place], [place] Bilirubin Ql (U) 0.5 mg/dL 0.2 - 1.3 mg/dL [place] Calcium [Mass/Vol] 8.7 mg/dL 8.4 - 10. 4 mg/dL [place] Chloride [Moles/Vol] 113 mmol/L High 98 - 10 7 mmol/L [place] CO2 [Moles/Vol] 18 mmol/L Low 22 - 30 mmol/L [place] Creatinine [Mass/Vol] 1.77 mg/dL High 0.52 - 1.25 mg/dL [place] EGFR IF NonAfrican [place]ritrean 41.6 mL/min Abnormal >60 [place] Comment on above: KDIGO guidelines pro [...] rate/Area] 48.2 mL/min/{1.73_m2} Abnormal >60 [facility], [place] Glucose [Mass/Vol] 134 mg/dL High 70 - 100 mg/dL [facility], [place] Potassium [Moles/Vol] 4.2 mmol/L 3.5 - 5.1 mmol/L [facility], [place] Protein [Mass/Vol] 5.6 g/dL Low 6.3 - 8.2 g/dL [facility], [place] Sodium [Moles/Vol] 137 mmol/L 135 - 145 mmol/L [facility], [place] Urea nitrogen [Mass/Vol] 32 mg/dL High 7 - 20 mg/dL [facility], [place] D-Dimer, Innovanceon 020 D-Dimer, Innovance 0.87 mg/L High 0.00-0.50 [facility] Comment on above: Result Comment: Inno quach D-Dimer values of <0.50 mg/L FEU can be used in combination with a pre-test probability model (e.g. Well's) to exclude pulmonary embolism (PE) disease, as well as an aid in the diagnosis of deep vein thrombosis (DVT). Performed By: #### H EMOG, CMP3M, CRP2, LDH3, FIBGN, DDI2, APTT, FERR3 #### [facility] [address] [place] [address] D-Dimer, Quantitativeon 10-14 D-Dimer, Quant 0.87 mg/L High 0 - 0.5 mg/L [place] Comment on above: InnovFididel D-Dimer va lues of <0.50 mg/L FEU can be used in combination with a pre-test probability model (e.g. Well's) to exclude pulmonary embolism (PE) disease, as well as an aid in the diagnosis of deep vein thrombosis (DVT). EKG 12 Leadon 11-01-2020 [facility], [facility] Results From [facility]ge[employer] - 11/01/2020 11:02 PM EST [facility] Test Date: 2020-10-31 Pat Name: Reggie León Department: 09 Room: 468 Gender: Cirilo Milieu Technician: NYLA : 1965 Requested By: FARRUKH DIAZ Order Number: [id number] Reading MD: Usama Johnston Intervals [place] Rate: 83 P: 21 NE: 192 QRS: -16 QRSD: 104 T: 28 QT: 404 QTc: 475 Interpretive Statements SINUS RHYTHM MULTIPLE VENTRICULAR PREMATURE COMPLEXES Electronically Signed On 11-01-2020 23:01:06 EST by Usama [facility] Test Date: 2020-10-31 Pat Name: Reggie León Department: 09 Room: 468 Gender: M Milieu Technician: NYLA : 1965 Requested By: FARRUKH DIAZ Order Number: [id number] Reading MD: Usama Johnston Intervals [place] Rate: 83 P: 21 NE: 192 QRS: -16 QRSD: 104 T: 28 QT: 404 QTc: 475 Interpretive Statements SINUS RHYTHM MULTIPLE VENTRICULAR PREMATURE COMPLEXES Electronically Signed On 11-01-2020 23:01:06 EST by Usama [place] Ferritinon 11-01-2020 Ferritin [Mass/Vol] 1020 ng/mL High 18-464 [facility] Comment on above: Performed By: #### H EMOG, CMP3M, CRP2, LDH3, FIBGN, DDI2, APTT, FERR3 #### [facility] [address] [place] [address] Ferritin [Mass/Vol] 1020 ng/mL High 18 - 464 ng/mL [place] Interpretation and review of laboratory results Abnormal [facility] [email or web address] Test Performed by [facility], [address], [place], [place] [address] [place] Fibrinogenon 11-01-2020 Fibrinogen 420 mg/dL High 200-400 [facility] Comment on above: Performed By: #### H EMOG, CMP3M, CRP2, LDH3, FIBGN, DDI2, APTT, FERR3 #### [facility] [address] [place] [address] Fibrinogen 420 mg/dL High 200 - 400 mg/dL [place] LDHon 11-01-2020 LDH 665 U/L High 120-246 [facility] Comment on above: Performed By: #### H EMOG, CMP3M, CRP2, LDH3, FIBGN, DDI2, APTT, FERR3 #### [facility] [address] [place] [address] Lactate Dehydrogenaseon 10-14 LD 665 U/L High 120 - 246 U/L [place] Otheron 11-01-2020 Interpretation and review of laboratory results Abnormal [place] Test Performed by [facility], [address] [place] [address] [place] Interpretation and review of laboratory results Abnormal [place] Test Performed by [facility], [address] [place] [address] [place] C-Reactive Proteinon 020 CRP [Mass/Vol] 19.2 mg/L High 0.0-6.0 [facility] Comment on above: Result Comment: . Performed By: #### H EMOG, CMP3M, CRP2, LDH3, FIBGN, DDI2, APTT, FERR3 #### [facility] [address] [place] [address] CRP [Mass/Vol] 19.2 mg/L High 0 - 6 mg/L [place] Comment on above: . CBCon 10-31-2020 Erythrocyte distribution width (RBC) [Ratio] 14.0 % 11.5 - 14.5 % [place] Hematocrit (Bld) [Volume fraction] 35.7 % Low 40 - 52 % [place] Hemoglobin (Bld) [Mass/Vol] 12.0 g/dL Low 13 - 18 g/dL [place] Interpretation and review of laboratory results Abnormal [place] MCH (RBC) [Entitic mass] 29.0 pg 26 - 34 pg [place] MCHC (RBC) [Mass/Vol] 33.7 % 32 - 36 % [facility] [place], [place] MCV (RBC) [Entitic vol] 86.3 fL 80 - 98 fL [place] Platelet mean volume (Bld) [Entitic vol] 7.5 fL 7.4 - 10.4 fL [place] Platelets (Bld) [#/Vol] 294 10*3/uL 140 - 440 10*3/uL [place] RBC (Bld) [#/Vol] 4.14 10*6/uL Low 4.4 - 5.9 10*6/uL [place] WBC (Bld) [#/Vol] 9.5 10*3/uL 3.6 - 10.7 10*3/uL [place] Test Performed by [facility], [address] [place], [place] [address] [place] Comp Panel with Mg Reflexon 10-31-2020 ALT [Catalytic activity/Vol] 79 U/L High 0-49 [facility] Comment on above: Result Comment: The ALT test is performed by an updated assay method. Please note that the reference intervals have been changed and are now sex specific. Performed By: #### H EMOG, CMP3M, CRP2, LDH3, FIBGN, DDI2, APTT, FERR3 #### [facility] [address] [place] [address] Calcium [Mass/Vol] 8.7 mg/dL Normal 8.4-10.4 [facility] Comment on above: Performed By: #### H EMOG, CMP3M, CRP2, LDH3, FIBGN, DDI2, APTT, FERR3 #### [facility] [address] [place] [address] Glucose [Mass/Vol] 139 mg/dL High 70-100 [facility] Comment on above: Performed By: #### H EMOG, CMP3M, CRP2, LDH3, FIBGN, DDI2, APTT, FERR3 #### [facility] [address] [place] [address] Urea nitrogen [Mass/Vol] 30 mg/dL High 7-20 [facility] Comment on above: Performed By: #### H EMOG, CMP3M, CRP2, LDH3, FIBGN, DDI2, APTT, FERR3 #### [facility] [address] [place] [address] ALP [Catalytic activity/Vol] 69 U/L Normal 38-126 [facility] Comment on above: Performed By: #### H EMOG, CMP3M, CRP2, LDH3, FIBGN, DDI2, APTT, FERR3 #### [facility] [address] [place] [address] Anion gap [Moles/Vol] 7 Normal [facility] Comment on above: Performed By: #### H EMOG, CMP3M, CRP2, LDH3, FIBGN, DDI2, APTT, FERR3 #### [facility] [address] [place] [address] AST [Catalytic activity/Vol] 67 U/L High 15-46 [facility] Comment on above: Performed By: #### H EMOG, CMP3M, CRP2, LDH3, FIBGN, DDI2, APTT, FERR3 #### [facility] [address] [place] [address] Bilirubin [Mass/Vol] 0.4 mg/dL Normal 0.2-1.3 [facility] Comment on above: Performed By: #### H EMOG, CMP3M, CRP2, LDH3, FIBGN, DDI2, APTT, FERR3 #### [facility] [address] [place] [address] CO2 [Moles/Vol] 17 mmol/L Low 22-30 [facility] Comment on above: Performed By: #### H EMOG, CMP3M, CRP2, LDH3, FIBGN, DDI2, APTT, FERR3 #### [facility] [address] [place] [address] Creatinine [Mass/Vol] 1.84 mg/dL High 0.52-1.25 [facility] Comment on above: Performed By: #### H EMOG, CMP3M, CRP2, LDH3, FIBGN, DDI2, APTT, FERR3 #### [facility] [address] [place] [address] GFR/1.73 sq M predicted among blacks MDRD (S/P/Bld) [Vol rate/Area] 46.0 mL/min/{1.73_m2} Abnormal >60 [facility] Comment on above: Performed By: #### H EMOG, CMP3M, CRP2, LDH3, FIBGN, DDI2, APTT, FERR3 #### [facility] [address] [place] [address] GFR/1.73 sq M predicted among non-blacks MDRD (S/P/Bld) [Vol rate/Area] 39.7 mL/min/{1.73_m2} Abnormal >60 [facility] Comment on above: Result Comment: KDIG O [...] CRP2, LDH3, FIBGN, DDI2, APTT, FERR3 #### [facility] [address] [place] [address] Protein [Mass/Vol] 5.3 g/dL Low 6.3-8.2 [facility] Comment on above: Performed By: #### H EMOG, CMP3M, CRP2, LDH3, FIBGN, DDI2, APTT, FERR3 #### [facility] [address] [place] [address] Albumin [Mass/Vol] 2.8 g/dL Low 3.5-5.0 [facility] Comment on above: Performed By: #### H EMOG, CMP3M, CRP2, LDH3, FIBGN, DDI2, APTT, FERR3 #### [facility] [address] [place] [address] Chloride [Moles/Vol] 112 mmol/L High 98-107 [facility] Comment on above: Performed By: #### H EMOG, CMP3M, CRP2, LDH3, FIBGN, DDI2, APTT, FERR3 #### [facility] [address] [place] [address] Sodium [Moles/Vol] 136 mmol/L Normal 135-145 [facility] Comment on above: Performed By: #### H EMOG, CMP3M, CRP2, LDH3, FIBGN, DDI2, APTT, FERR3 #### [facility] [address] [place] [address] Potassium [Moles/Vol] 3.8 mmol/L Normal 3.5-5.1 [place], [place] Comment on above: Performed By: #### H EMOG, CMP3M, CRP2, LDH3, FIBGN, DDI2, APTT, FERR3 #### [facility] [address] [place] [address] Comprehensive Metabolic Pane l w/ Reflex to MGon 10-31-2020 Albumin [Mass/Vol] 2.8 g/dL Low 3.5 - 5 g/dL [place] ALP [Catalytic activity/Vol] 69 U/L 38 - 126 U/L [place] ALT [Catalytic activity/Vol] 79 U/L High 0 - 49 U/L [place] Comment on above: The ALT test is perf ormed by an updated assay method. Please note that the reference intervals have been changed and are now sex specific. Anion gap [Moles/Vol] 7 mmol/L [place] AST [Catalytic activity/Vol] 67 U/L High 15 - 46 U/L [place] Bilirubin Ql (U) 0.4 mg/dL 0.2 - 1.3 mg/dL [place] Calcium [Mass/Vol] 8.7 mg/dL 8.4 - 10. 4 mg/dL [place] Chloride [Moles/Vol] 112 mmol/L High 98 - 10 7 mmol/L [place] CO2 [Moles/Vol] 17 mmol/L Low 22 - 30 mmol/L [place] Creatinine [Mass/Vol] 1.84 mg/dL High 0.52 - 1.25 mg/dL [place] EGFR IF NonAfrican [place]rean 39.7 mL/min Abnormal >60 [place] Comment on above: KDIGO guidelines pro [...] (S/P/Bld) [Vol rate/Area] 46.0 mL/min/{1.73_m2} Abnormal >60 [place] Glucose [Mass/Vol] 139 mg/dL High 70 - 100 mg/dL [place] Protein [Mass/Vol] 5.3 g/dL Low 6.3 - 8.2 g/dL [place] Sodium [Moles/Vol] 136 mmol/L 135 - 145 mmol/L [place] Urea nitrogen [Mass/Vol] 30 mg/dL High 7 - 20 mg/dL [place] D-Dimer, Innovanceon 12-18-2 020 D-Dimer, Innovance 0.96 mg/L High 0.00-0.50 [facility] Comment on above: Result Comment: Inno quach D-Dimer values of <0.50 mg/L FEU can be used in combination with a pre-test probability model (e.g. Well's) to exclude pulmonary embolism (PE) disease, as well as an aid in the diagnosis of deep vein thrombosis (DVT). Performed By: #### H EMOG, CMP3M, CRP2, LDH3, FIBGN, DDI2, APTT, FERR3 #### [facility] [address] [place] [address] D-Dimer, Quantitativeon 10-14 D-Dimer, Quant 0.96 mg/L High 0 - 0.5 mg/L [place] Comment on above: Innov[employer] D-Dimer va lues of <0.50 mg/L FEU can be used in combination with a pre-test probability model (e.g. Well's) to exclude pulmonary embolism (PE) disease, as well as an aid in the diagnosis of deep vein thrombosis (DVT). Ferritinon 10-31-2020 Ferritin [Mass/Vol] 810 ng/mL High 18-464 [facility] Comment on above: Performed By: #### H EMOG, CMP3M, CRP2, LDH3, FIBGN, DDI2, APTT, FERR3 #### [facility] [address] [place] [address] Ferritin [Mass/Vol] 810 ng/mL High 18 - 464 ng/mL [place] Interpretation and review of laboratory results Abnormal [place] Test Performed by [facility], [address] [place] [address] [place] Fibrinogenon 10-31-2020 Fibrinogen 455 mg/dL High 200-400 [facility] Comment on above: Performed By: #### H EMOG, CMP3M, CRP2, LDH3, FIBGN, DDI2, APTT, FERR3 #### [facility] [address] [place] [address] Fibrinogen 455 mg/dL High 200 - 400 mg/dL [place] Hemogramon 10-31-2020 Erythrocyte distribution width (RBC) [Ratio] 14.0 % Normal 11.5-14.5 [facility] Comment on above: Performed By: #### H EMOG, CMP3M, CRP2, LDH3, FIBGN, DDI2, APTT, FERR3 #### [facility] [address] [place] [address] Hematocrit (Bld) [Volume fraction] 35.7 % Low 40.0-52.0 [facility] Comment on above: Performed By: #### H EMOG, CMP3M, CRP2, LDH3, FIBGN, DDI2, APTT, FERR3 #### [facility] [address] [place] [address] Hemoglobin (Bld) [Mass/Vol] 12.0 g/dL Low 13.0-18.0 [facility] Comment on above: Performed By: #### H EMOG, CMP3M, CRP2, LDH3, FIBGN, DDI2, APTT, FERR3 #### [facility] [address] [place] [address] MCH (RBC) [Entitic mass] 29.0 pg Normal 26.0-34.0 [facility] Comment on above: Performed By: #### H EMOG, CMP3M, CRP2, LDH3, FIBGN, DDI2, APTT, FERR3 #### [facility] [address] [place] [address] MCHC (RBC) [Mass/Vol] 33.7 % Normal 32.0-36.0 [facility] Comment on above: Performed By: #### H EMOG, CMP3M, CRP2, LDH3, FIBGN, DDI2, APTT, FERR3 #### [facility] [address] [place] [address] MCV (RBC) [Entitic vol] 86.3 fL Normal 80.0-98.0 [facility] Comment on above: Performed By: #### H EMOG, CMP3M, CRP2, LDH3, FIBGN, DDI2, APTT, FERR3 #### [facility] [address] [place] [address] Platelet mean volume (Bld) [Entitic vol] 7.5 fL Normal 7.4-10.4 [facility] Comment on above: Performed By: #### H EMOG, CMP3M, CRP2, LDH3, FIBGN, DDI2, APTT, FERR3 #### [facility] [address] [place] [address] Platelets (Bld) [#/Vol] 294 10*3/uL Normal 140-440 [facility] Comment on above: Performed By: #### H EMOG, CMP3M, CRP2, LDH3, FIBGN, DDI2, APTT, FERR3 #### [facility] [address] [place] [address] RBC (Bld) [#/Vol] 4.14 10*6/uL Low 4.40-5.90 [facility] Comment on above: Performed By: #### H EMOG, CMP3M, CRP2, LDH3, FIBGN, DDI2, APTT, FERR3 #### [facility] [address] [place] [address] WBC (Bld) [#/Vol] 9.5 10*3/uL Normal 3.6-10.7 [facility] Comment on above: Performed By: #### H EMOG, CMP3M, CRP2, LDH3, FIBGN, DDI2, APTT, FERR3 #### [facility] [address] [place] [address] LDHon 10-31-2020 LDH 572 U/L High 120-246 [facility] Comment on above: Performed By: #### H EMOG, CMP3M, CRP2, LDH3, FIBGN, DDI2, APTT, FERR3 #### [facility] [address] [place] [address] Lactate Dehydrogenaseon 10-14 LD 572 U/L High 120 - 246 U/L [facility], [place] Otheron 10-31-2020 Interpretation and review of laboratory results Abnormal [facility], [email or web address] Test Performed by [facility], [address] [place] [id number] [place] [address], [place] Interpretation and review of laboratory results Abnormal [facility], [email or web address] Test Performed by [facility], [address] [place] [address] [facility], [place] APTTon 10-30-2020 aPTT Coag (Bld) [Time] 47.0 s High 20.0-30.5 [facility] Comment on above: Result Comment: NOTE : The therapeutic time for Heparin anticoagulation, based on Xa activity inhibition, is an APTT of 46-80 seconds. Performed By: #### H EMOG, CMP3M, CRP2, LDH3, FIBGN, DDI2, APTT, FERR3 #### [facility] [address] [place] [address] aPTT Coag (Bld) [Time] 47 s High 20 - 30.5 s [place] Comment on above: NOTE: The therapeuti c time for Heparin anticoagulation, based on Xa activity inhibition, is an APTT of 46-80 seconds. C-Reactive Proteinon CRP [Mass/Vol] 27.5 mg/L High 0.0-6.0 [facility] Comment on above: Result Comment: . Performed By: #### H EMOG, CMP3M, CRP2, LDH3, FIBGN, DDI2, APTT, FERR3 #### [facility] [address] [place] [address] CRP [Mass/Vol] 27.5 mg/L High 0 - 6 mg/L [place] Comment on above: . Comp Panel with Mg Reflexon 10-30-2020 ALT [Catalytic activity/Vol] 67 U/L High 0-49 [facility] Comment on above: Result Comment: The ALT test is performed by an updated assay method. Please note that the reference intervals have been changed and are now sex specific. Performed By: #### H EMOG, CMP3M, CRP2, LDH3, FIBGN, DDI2, APTT, FERR3 #### [facility] [address] [place] [address] Calcium [Mass/Vol] 8.6 mg/dL Normal 8.4-10.4 [facility] Comment on above: Performed By: #### H EMOG, CMP3M, CRP2, LDH3, FIBGN, DDI2, APTT, FERR3 #### [facility] [address] [place] [address] Glucose [Mass/Vol] 142 mg/dL High 70-100 [facility] Comment on above: Performed By: #### H EMOG, CMP3M, CRP2, LDH3, FIBGN, DDI2, APTT, FERR3 #### [facility] [address] [place] [address] Urea nitrogen [Mass/Vol] 30 mg/dL High 7-20 [facility] Comment on above: Performed By: #### H EMOG, CMP3M, CRP2, LDH3, FIBGN, DDI2, APTT, FERR3 #### [facility] [address] [place] [address] ALP [Catalytic activity/Vol] 75 U/L Normal 38-126 [facility] Comment on above: Performed By: #### H EMOG, CMP3M, CRP2, LDH3, FIBGN, DDI2, APTT, FERR3 #### [facility] [address] [place] [address] Anion gap [Moles/Vol] 8 Normal [facility] Comment on above: Performed By: #### H EMOG, CMP3M, CRP2, LDH3, FIBGN, DDI2, APTT, FERR3 #### [facility] [address] [place] [address] AST [Catalytic activity/Vol] 67 U/L High 15-46 [facility] Comment on above: Performed By: #### H EMOG, CMP3M, CRP2, LDH3, FIBGN, DDI2, APTT, FERR3 #### [facility] [address] [place] [address] Bilirubin [Mass/Vol] 0.3 mg/dL Normal 0.2-1.3 [facility] Comment on above: Performed By: #### H EMOG, CMP3M, CRP2, LDH3, FIBGN, DDI2, APTT, FERR3 #### [facility] [address] [place] [address] CO2 [Moles/Vol] 18 mmol/L Low 22-30 [facility] Comment on above: Performed By: #### H EMOG, CMP3M, CRP2, LDH3, FIBGN, DDI2, APTT, FERR3 #### [facility] [address] [place] [address] Creatinine [Mass/Vol] 2.01 mg/dL High 0.52-1.25 [facility] Comment on above: Performed By: #### H EMOG, CMP3M, CRP2, LDH3, FIBGN, DDI2, APTT, FERR3 #### [facility] [address] [place] [address] GFR/1.73 sq M predicted among blacks MDRD (S/P/Bld) [Vol rate/Area] 41.3 mL/min/{1.73_m2} Abnormal >60 [facility] Comment on above: Performed By: #### H EMOG, CMP3M, CRP2, LDH3, FIBGN, DDI2, APTT, FERR3 #### [facility] [address] [place] [address] GFR/1.73 sq M predicted among non-blacks MDRD (S/P/Bld) [Vol rate/Area] 35.6 mL/min/{1.73_m2} Abnormal >60 [facility] Comment on above: Result Comment: KDIG O [...] CRP2, LDH3, FIBGN, DDI2, APTT, FERR3 #### [facility] [address] [place] [address] Protein [Mass/Vol] 5.7 g/dL Low 6.3-8.2 [facility] Comment on above: Performed By: #### H EMOG, CMP3M, CRP2, LDH3, FIBGN, DDI2, APTT, FERR3 #### [facility] [address] [place] [address] Potassium [Moles/Vol] 4.0 mmol/L Normal 3.5-5.1 [facility] Comment on above: Performed By: #### H EMOG, CMP3M, CRP2, LDH3, FIBGN, DDI2, APTT, FERR3 #### [facility] [address] [place] [address] Albumin [Mass/Vol] 2.9 g/dL Low 3.5-5.0 [facility] Comment on above: Performed By: #### H EMOG, CMP3M, CRP2, LDH3, FIBGN, DDI2, APTT, FERR3 #### [facility] [address] [place] [address] Chloride [Moles/Vol] 114 mmol/L High 98-107 [facility] Comment on above: Performed By: #### H EMOG, CMP3M, CRP2, LDH3, FIBGN, DDI2, APTT, FERR3 #### [facility] [address] [place] [address] Sodium [Moles/Vol] 140 mmol/L Normal 135-145 [facility] Comment on above: Performed By: #### H EMOG, CMP3M, CRP2, LDH3, FIBGN, DDI2, APTT, FERR3 #### [facility] [address] [place] [address] Comprehensive Metabolic Pane l w/ Reflex to MGon 10-30-2020 Albumin [Mass/Vol] 2.9 g/dL Low 3.5 - 5 g/dL [place] ALP [Catalytic activity/Vol] 75 U/L 38 - 126 U/L [place] ALT [Catalytic activity/Vol] 67 U/L High 0 - 49 U/L [place] Comment on above: The ALT test is perf ormed by an updated assay method. Please note that the reference intervals have been changed and are now sex specific. Anion gap [Moles/Vol] 8 mmol/L [place] AST [Catalytic activity/Vol] 67 U/L High 15 - 46 U/L [place] Bilirubin Ql (U) 0.3 mg/dL 0.2 - 1.3 mg/dL [place] Calcium [Mass/Vol] 8.6 mg/dL 8.4 - 10. 4 mg/dL [place] Chloride [Moles/Vol] 114 mmol/L High 98 - 10 7 mmol/L [place] CO2 [Moles/Vol] 18 mmol/L Low 22 - 30 mmol/L [place] Creatinine [Mass/Vol] 2.01 mg/dL High 0.52 - 1.25 mg/dL [place] EGFR IF NonAfrican [place]rean 35.6 mL/min Abnormal >60 [place] Comment on above: KDIGO guidelines pro [...] (S/P/Bld) [Vol rate/Area] 41.3 mL/min/{1.73_m2} Abnormal >60 [place] Glucose [Mass/Vol] 142 mg/dL High 70 - 100 mg/dL [place] Potassium [Moles/Vol] 4.0 mmol/L 3.5 - 5.1 mmol/L [place] Protein [Mass/Vol] 5.7 g/dL Low 6.3 - 8.2 g/dL [place] Sodium [Moles/Vol] 140 mmol/L 135 - 145 mmol/L [place] Urea nitrogen [Mass/Vol] 30 mg/dL High 7 - 20 mg/dL [place] D-Dimer, Innovanceon 020 D-Dimer, Innovance 0.89 mg/L High 0.00-0.50 [facility] Comment on above: Result Comment: Inno quach D-Dimer values of <0.50 mg/L FEU can be used in combination with a pre-test probability model (e.g. Well's) to exclude pulmonary embolism (PE) disease, as well as an aid in the diagnosis of deep vein thrombosis (DVT). Performed By: #### H EMOG, CMP3M, CRP2, LDH3, FIBGN, DDI2, APTT, FERR3 #### [facility] [address] [place] [address] D-Dimer, Quantitativeon 10-14 D-Dimer, Quant 0.89 mg/L High 0 - 0.5 mg/L [place] Comment on above: [facility] D-Dimer va lues of <0.50 mg/L FEU can be used in combination with a pre-test probability model (e.g. Well's) to exclude pulmonary embolism (PE) disease, as well as an aid in the diagnosis of deep vein thrombosis (DVT). Ferritinon 10-30-2020 Ferritin [Mass/Vol] 885 ng/mL High 18-464 [facility] Comment on above: Performed By: #### H EMOG, CMP3M, CRP2, LDH3, FIBGN, DDI2, APTT, FERR3 #### [facility] [address] [place] [address] Ferritin [Mass/Vol] 885 ng/mL High 18 - 464 ng/mL [place], [place] Interpretation and review of laboratory results Abnormal [place] Test Performed by [facility], [address], [place], [place] [address] [place] Fibrinogenon 10-30-2020 Fibrinogen 456 mg/dL High 200-400 [facility] Comment on above: Performed By: #### H EMOG, CMP3M, CRP2, LDH3, FIBGN, DDI2, APTT, FERR3 #### [facility] [address] [place] [address] Fibrinogen 456 mg/dL High 200 - 400 mg/dL [place] LDHon 10-30-2020 LDH 613 U/L High 120-246 [facility] Comment on above: Performed By: #### H EMOG, CMP3M, CRP2, LDH3, FIBGN, DDI2, APTT, FERR3 #### [facility] [address] [place] [address] Lactate Dehydrogenaseon 10-14 LD 613 U/L High 120 - 246 U/L [place] Otheron 10-30-2020 Interpretation and review of laboratory results Abnormal [place] Test Performed by [facility] [place] [address] [place] [address] [place], [place] Interpretation and review of laboratory results Abnormal [place] Test Performed by [facility], [employer] [address] [place] [address] [place] APTTon 10-29-2020 aPTT Coag (Bld) [Time] 35.1 s High 20.0-30.5 [facility] Comment on above: Result Comment: NOTE : The therapeutic time for Heparin anticoagulation, based on Xa activity inhibition, is an APTT of 46-80 seconds. Performed By: #### H EMOG, CMP3M, CRP2, LDH3, FIBGN, DDI2, APTT, FERR3 #### [facility] [address] [place] [address] aPTT Coag (Bld) [Time] 35.1 s High 20 - 30.5 s [place] Comment on above: NOTE: The therapeuti c time for Heparin anticoagulation, based on Xa activity inhibition, is an APTT of 46-80 seconds. C-Reactive Proteinon 020 CRP [Mass/Vol] 34.9 mg/L High 0.0-6.0 [facility] Comment on above: Result Comment: . Performed By: #### H EMOG, CMP3M, CRP2, LDH3, FIBGN, DDI2, APTT, FERR3 #### [facility] [address] [place] [address] CRP [Mass/Vol] 34.9 mg/L High 0 - 6 mg/L [place] Comment on above: . CBCon 10-29-2020 Erythrocyte distribution width (RBC) [Ratio] 14.2 % 11.5 - 14.5 % [place] Hematocrit (Bld) [Volume fraction] 37.3 % Low 40 - 52 % [place] Hemoglobin (Bld) [Mass/Vol] 12.6 g/dL Low 13 - 18 g/dL [place] Interpretation and review of laboratory results Abnormal [place] MCH (RBC) [Entitic mass] 29.2 pg 26 - 34 pg [place] MCHC (RBC) [Mass/Vol] 33.7 % 32 - 36 % [place] MCV (RBC) [Entitic vol] 86.7 fL 80 - 98 fL [place], [place] Platelet mean volume (Bld) [Entitic vol] 7.6 fL 7.4 - 10.4 fL [place] Platelets (Bld) [#/Vol] 255 10*3/uL 140 - 440 10*3/uL [place] RBC (Bld) [#/Vol] 4.30 10*6/uL Low 4.4 - 5.9 10*6/uL [place] WBC (Bld) [#/Vol] 7.8 10*3/uL 3.6 - 10.7 10*3/uL [place] Test Performed by [facility], [address], [place], [place] [address] [place] CBC auto differentialon 10-14 Absolute Baso # 0.0 10*3/uL 0 - 0.2 10*3/uL [place] Absolute Neut # 3.5 10*3/uL 1.8 - 7 10*3/uL [place] Basophils/100 WBC (Bld) 0.3 % 0 - 2 % [place] Eosinophils (Bld) [#/Vol] 0.0 10*3/uL 0 - 0.5 10*3/uL [place] Eosinophils/100 WBC (Bld) 0.0 % Low 1 - 6 % [place] Erythrocyte distribution width (RBC) [Ratio] 13.8 % 11.5 - 14.5 % [place] Granulocytes/100 WBC (Bld) 79.4 % 40 - 80 % [place] Hematocrit (Bld) [Volume fraction] 36.7 % Low 40 - 52 % [place] Hemoglobin (Bld) [Mass/Vol] 12.2 g/dL Low 13 - 18 g/dL [place] Interpretation and review of laboratory results Abnormal [place] Lymphocytes (Bld) [#/Vol] 0.4 10*3/uL Low 1 - 4.3 10*3/uL [place] Lymphocytes/100 WBC (Bld) 8.8 % Low 20 - 40 % [place] MCH (RBC) [Entitic mass] 29.1 pg 26 - 34 pg [place] MCHC (RBC) [Mass/Vol] 33.1 % 32 - 36 % [place] MCV (RBC) [Entitic vol] 87.8 fL 80 - 98 fL [place] Monocytes (Bld) [#/Vol] 0.5 10*3/uL 0 - 0.8 10*3/uL [place] Monocytes/100 WBC (Bld) 11.5 % High 2 - 10 % [place] Platelet mean volume (Bld) [Entitic vol] 7.9 fL 7.4 - 10.4 fL [place] Platelets (Bld) [#/Vol] 231 10*3/uL 140 - 440 10*3/uL [place] RBC (Bld) [#/Vol] 4.19 10*6/uL Low 4.4 - 5.9 10*6/uL [place] WBC (Bld) [#/Vol] 4.4 10*3/uL 3.6 - 10.7 10*3/uL [place] Test Performed by [facility], [address] [place], [place] [address] [place] COVID and Resp PCR Panelon 1 12-30-2019 COVID and Resp PCR Panel COVID and Resp PCR Panel --> Status: F NEGATIVE: No targets were detected by the [employer] [facility] [employer] Upper Respiratory Pathogens PCR Panel. _ Expected Result: Not Detected The [employer] Upper Respiratory Pathogens PCR Panel can detect [...] management decisions. This assay was developed by [employer] and distributed under an Emergency Use Authorization (EUA) granted by the FDA for the qualitative detection of SARS-CoV-2 nucleic acid. Provider and patient fact sheets can be found at https://www.fda.gov/media/ 904440/download and https://www.fda.gov/media/ 514109/download. Respiratory Pathogens PCR Panel. _ Expected Result: Not Detected The [facility] [employer] Upper Respiratory Pathogens PCR Panel can detect [...] management decisions. This assay was developed by [employer] and distributed under an Emergency Use Authorization (EUA) granted by the FDA for the qualitative detection of SARS-CoV-2 nucleic acid. Provider and patient fact sheets can be found at https://www.fda.gov/media/ 921761/download and https://www.fda.gov/media/ 121739/download. Normal [facility] Comment on above: Performed By: #### H EMOG, CMP3M, CRP2, LDH3, FIBGN, DDI2, APTT, FERR3 #### [facility] [address] [place] [address] CTA CHEST W WO CONTRASTon Patient Name: REGGIE WILSON Computed Tomography ACCESSION EXAM DATE/TIME PROCEDURE ORDERING PROVIDER [id number] 10/29/2020 16:29 EST CTA Chest w/ + w/o MD EMILY, IMOLA ANNY Contrast CPT code 63341 Q9967 Reason For Exam (CTA Chest w/ + w/o Contrast) Hypoxia and elevated D-dimer, possible COVID+ and PE? Report Reasons for examination: Hypoxia, elevated d-dimer, Covid 19. CT scan of the chest were performed with bolus contrast and high resolution scans for CT pulmonary angiographic study, with images post-processed by myself on [employer] workstation, with 3D - volume rendered CT [...] Date and Time: 10/29/2020 4:51 [facility], [place], [place] Incoming Radiology Results From [facility] - 10/29/2020 4:51 PM EST Patient Name: REGGIE LEÓN Computed Tomography ACCESSION EXAM DATE/TIME PROCEDURE ORDERING PROVIDER [id number] 10/29/2020 16:29 EST CTA Chest w/ + w/o MD EMILY, FARRUKH MCCORMICK Contrast CPT code 06922 Q9967 Reason For Exam (CTA Chest w/ + w/o Contrast) Hypoxia and elevated D-dimer, possible COVID+ and PE? Report Reasons for examination: Hypoxia, elevated d-dimer, Covid 19. CT scan of the chest were performed with bolus contrast and high resolution scans for CT pulmonary angiographic study, with images post-processed by myself on [employer] workstation, with 3D - volume rendered CT [...] Date and Time: 10/29/2020 4:51 [facility], [place] CTA Chest w/ + w/o Contrasto n 10-29-2020 CTA Chest w/ + w/o Contrast Patient Name: REGGIE LEÓN Computed Tomography ACCESSION EXAM DATE/TIME PROCEDURE ORDERING PROVIDER [id number] 10/29/2020 16:29 EST CTA Chest w/ + w/o MD EMILY, FARRUKH MCCORMICK Contrast CPT code 92822 Q9967 Reason For Exam (CTA Chest w/ + w/o Contrast) Hypoxia and elevated D-dimer, possible COVID+ and PE? Report Reasons for examination: Hypoxia, elevated d-dimer, Covid 19. CT scan of the chest were performed with bolus contrast and high resolution scans for CT pulmonary angiographic study, with images post-processed by myself on [employer] workstation, with 3D - volume rendered CT [...] Transcribed Date and Time: 10/29/2020 4:51 Normal [facility] Comp Panel with Mg Reflexon 10-29-2020 ALP [Catalytic activity/Vol] 71 U/L Normal 38-126 [facility] Comment on above: Performed By: #### H EMOG, CMP3M, CRP2, LDH3, FIBGN, DDI2, APTT, FERR3 #### [facility] [address] [place] [address] ALT [Catalytic activity/Vol] 67 U/L High 0-49 [facility] Comment on above: Result Comment: The ALT test is performed by an updated assay method. Please note that the reference intervals have been changed and are now sex specific. Performed By: #### H EMOG, CMP3M, CRP2, LDH3, FIBGN, DDI2, APTT, FERR3 #### [facility] [address] [place] [address] Anion gap [Moles/Vol] 7 Normal [facility] Comment on above: Performed By: #### H EMOG, CMP3M, CRP2, LDH3, FIBGN, DDI2, APTT, FERR3 #### [facility] [address] [place] [address] AST [Catalytic activity/Vol] 88 U/L High 15-46 [facility] Comment on above: Performed By: #### H EMOG, CMP3M, CRP2, LDH3, FIBGN, DDI2, APTT, FERR3 #### [facility] [address] [place] [address] Bilirubin [Mass/Vol] 0.6 mg/dL Normal 0.2-1.3 [facility] Comment on above: Performed By: #### H EMOG, CMP3M, CRP2, LDH3, FIBGN, DDI2, APTT, FERR3 #### [facility] [address] [place] [address] Calcium [Mass/Vol] 8.9 mg/dL Normal 8.4-10.4 [facility] Comment on above: Performed By: #### H EMOG, CMP3M, CRP2, LDH3, FIBGN, DDI2, APTT, FERR3 #### [facility] [address] [place] [address] CO2 [Moles/Vol] 18 mmol/L Low 22-30 [facility] Comment on above: Performed By: #### H EMOG, CMP3M, CRP2, LDH3, FIBGN, DDI2, APTT, FERR3 #### [facility] [address] [place] [address] Creatinine [Mass/Vol] 2.24 mg/dL High 0.52-1.25 [facility] Comment on above: Performed By: #### H EMOG, CMP3M, CRP2, LDH3, FIBGN, DDI2, APTT, FERR3 #### [facility] [address] [place] [address] GFR/1.73 sq M predicted among blacks MDRD (S/P/Bld) [Vol rate/Area] 36.2 mL/min/{1.73_m2} Abnormal >60 [facility] Comment on above: Performed By: #### H EMOG, CMP3M, CRP2, LDH3, FIBGN, DDI2, APTT, FERR3 #### [facility] [address] [facility] [place] [address] GFR/1.73 sq M predicted among non-blacks MDRD (S/P/Bld) [Vol rate/Area] 31.3 mL/min/{1.73_m2} Abnormal >60 [facility] Comment on above: Result Comment: KDIG O [...] CRP2, LDH3, FIBGN, DDI2, APTT, FERR3 #### [facility] [address] [place] [address] Glucose [Mass/Vol] 132 mg/dL High 70-100 [facility] Comment on above: Performed By: #### H EMOG, CMP3M, CRP2, LDH3, FIBGN, DDI2, APTT, FERR3 #### [facility] [address] [place] [address] Protein [Mass/Vol] 6.0 g/dL Low 6.3-8.2 [facility] Comment on above: Performed By: #### H EMOG, CMP3M, CRP2, LDH3, FIBGN, DDI2, APTT, FERR3 #### [facility] [address] [place] [address] Urea nitrogen [Mass/Vol] 33 mg/dL High 7-20 [facility] Comment on above: Performed By: #### H EMOG, CMP3M, CRP2, LDH3, FIBGN, DDI2, APTT, FERR3 #### [facility] [address] [place] [address] Potassium [Moles/Vol] 3.9 mmol/L Normal 3.5-5.1 [facility] Comment on above: Performed By: #### H EMOG, CMP3M, CRP2, LDH3, FIBGN, DDI2, APTT, FERR3 #### [facility] [address] [place] [address] Albumin [Mass/Vol] 3.2 g/dL Low 3.5-5.0 [facility] Comment on above: Performed By: #### H EMOG, CMP3M, CRP2, LDH3, FIBGN, DDI2, APTT, FERR3 #### [facility] [address] [place] [address] Chloride [Moles/Vol] 112 mmol/L High 98-107 [facility] Comment on above: Performed By: #### H EMOG, CMP3M, CRP2, LDH3, FIBGN, DDI2, APTT, FERR3 #### [facility] [address] [place] [address] Sodium [Moles/Vol] 137 mmol/L Normal 135-145 [facility] Comment on above: Performed By: #### H EMOG, CMP3M, CRP2, LDH3, FIBGN, DDI2, APTT, FERR3 #### [facility] [address] [place] [address] ALP [Catalytic activity/Vol] 81 U/L Normal 38-126 [facility] Comment on above: Performed By: #### H EMOG, CMP3M, CRP2, LDH3, FIBGN, DDI2, APTT, FERR3 #### [facility] [address] [place] [address] ALT [Catalytic activity/Vol] 67 U/L High 0-49 [facility] Comment on above: Result Comment: The ALT test is performed by an updated assay method. Please note that the reference intervals have been changed and are now sex specific. Performed By: #### H EMOG, CMP3M, CRP2, LDH3, FIBGN, DDI2, APTT, FERR3 #### [facility] [address] [place] [address] Anion gap [Moles/Vol] 9 Normal [facility] Comment on above: Performed By: #### H EMOG, CMP3M, CRP2, LDH3, FIBGN, DDI2, APTT, FERR3 #### [facility] [address] [place] [address] AST [Catalytic activity/Vol] 86 U/L High 15-46 [facility] Comment on above: Performed By: #### H EMOG, CMP3M, CRP2, LDH3, FIBGN, DDI2, APTT, FERR3 #### [facility] [address] [place] [address] Calcium [Mass/Vol] 8.5 mg/dL Normal 8.4-10.4 [facility] Comment on above: Performed By: #### H EMOG, CMP3M, CRP2, LDH3, FIBGN, DDI2, APTT, FERR3 #### [facility] [address] [place] [address] CO2 [Moles/Vol] 17 mmol/L Low 22-30 [facility] Comment on above: Performed By: #### H EMOG, CMP3M, CRP2, LDH3, FIBGN, DDI2, APTT, FERR3 #### [facility] [address] [place] [address] Glucose [Mass/Vol] 139 mg/dL High 70-100 [facility] Comment on above: Performed By: #### H EMOG, CMP3M, CRP2, LDH3, FIBGN, DDI2, APTT, FERR3 #### [facility] [address] [place] [address] Protein [Mass/Vol] 5.8 g/dL Low 6.3-8.2 [facility] Comment on above: Performed By: #### H EMOG, CMP3M, CRP2, LDH3, FIBGN, DDI2, APTT, FERR3 #### [facility] [address] [place] [address] Urea nitrogen [Mass/Vol] 31 mg/dL High 7-20 [facility] Comment on above: Performed By: #### H EMOG, CMP3M, CRP2, LDH3, FIBGN, DDI2, APTT, FERR3 #### [facility] [address] [place] [address] Bilirubin [Mass/Vol] 0.5 mg/dL Normal 0.2-1.3 [facility] Comment on above: Performed By: #### H EMOG, CMP3M, CRP2, LDH3, FIBGN, DDI2, APTT, FERR3 #### [facility] [address] [place] [address] Creatinine [Mass/Vol] 2.37 mg/dL High 0.52-1.25 [facility] Comment on above: Performed By: #### H EMOG, CMP3M, CRP2, LDH3, FIBGN, DDI2, APTT, FERR3 #### [facility] [address] [place] [address] GFR/1.73 sq M predicted among blacks MDRD (S/P/Bld) [Vol rate/Area] 33.9 mL/min/{1.73_m2} Abnormal >60 [facility] Comment on above: Performed By: #### H EMOG, CMP3M, CRP2, LDH3, FIBGN, DDI2, APTT, FERR3 #### [facility] [address] [place] [address] GFR/1.73 sq M predicted among non-blacks MDRD (S/P/Bld) [Vol rate/Area] 29.2 mL/min/{1.73_m2} Abnormal >60 [facility] Comment on above: Result Comment: KDIG O [...] CRP2, LDH3, FIBGN, DDI2, APTT, FERR3 #### [facility] [address] [place] [address] Potassium [Moles/Vol] 4.3 mmol/L Normal 3.5-5.1 [facility] Comment on above: Performed By: #### H EMOG, CMP3M, CRP2, LDH3, FIBGN, DDI2, APTT, FERR3 #### [facility] [address] [place] [address] Sodium [Moles/Vol] 136 mmol/L Normal 135-145 [facility] Comment on above: Performed By: #### H EMOG, CMP3M, CRP2, LDH3, FIBGN, DDI2, APTT, FERR3 #### [facility] [address] [place] [address] Albumin [Mass/Vol] 3.0 g/dL Low 3.5-5.0 [facility] Comment on above: Performed By: #### H EMOG, CMP3M, CRP2, LDH3, FIBGN, DDI2, APTT, FERR3 #### [facility] [address] [place] [address] Chloride [Moles/Vol] 110 mmol/L High 98-107 [facility] Comment on above: Performed By: #### H EMOG, CMP3M, CRP2, LDH3, FIBGN, DDI2, APTT, FERR3 #### [facility] [address] [place] [address] Comprehensive Metabolic Pane l w/ Reflex to MGon 10-29-2020 Albumin [Mass/Vol] 3.2 g/dL Low 3.5 - 5 g/dL [place] ALP [Catalytic activity/Vol] 71 U/L 38 - 126 U/L [place] ALT [Catalytic activity/Vol] 67 U/L High 0 - 49 U/L [place] Comment on above: The ALT test is perf ormed by an updated assay method. Please note that the reference intervals have been changed and are now sex specific. Anion gap [Moles/Vol] 7 mmol/L [place], [place] AST [Catalytic activity/Vol] 88 U/L High 15 - 46 U/L [place] Bilirubin Ql (U) 0.6 mg/dL 0.2 - 1.3 mg/dL [place] Calcium [Mass/Vol] 8.9 mg/dL 8.4 - 10. 4 mg/dL [place] Chloride [Moles/Vol] 112 mmol/L High 98 - 10 7 mmol/L [place] CO2 [Moles/Vol] 18 mmol/L Low 22 - 30 mmol/L [place] Creatinine [Mass/Vol] 2.24 mg/dL High 0.52 - 1.25 mg/dL [place] EGFR IF NonAfrican Eritrean 31.3 mL/min Abnormal >60 [place] Comment on above: KDIGO guidelines pro [...] (S/P/Bld) [Vol rate/Area] 36.2 mL/min/{1.73_m2} Abnormal >60 [place] Glucose [Mass/Vol] 132 mg/dL High 70 - 100 mg/dL [place] Interpretation and review of laboratory results Abnormal [place] Potassium [Moles/Vol] 3.9 mmol/L 3.5 - 5.1 mmol/L [place] Protein [Mass/Vol] 6.0 g/dL Low 6.3 - 8.2 g/dL [place] Sodium [Moles/Vol] 137 mmol/L 135 - 145 mmol/L [place] Urea nitrogen [Mass/Vol] 33 mg/dL High 7 - 20 mg/dL [place] Test Performed by [facility], [address] [place], [place] [address] [place] Albumin [Mass/Vol] 3.0 g/dL Low 3.5 - 5 g/dL [place] ALP [Catalytic activity/Vol] 81 U/L 38 - 126 U/L [place] ALT [Catalytic activity/Vol] 67 U/L High 0 - 49 U/L [place] Comment on above: The ALT test is perf ormed by an updated assay method. Please note that the reference intervals have been changed and are now sex specific. Anion gap [Moles/Vol] 9 mmol/L [place] AST [Catalytic activity/Vol] 86 U/L High 15 - 46 U/L [place] Bilirubin Ql (U) 0.5 mg/dL 0.2 - 1.3 mg/dL [place] Calcium [Mass/Vol] 8.5 mg/dL 8.4 - 10. 4 mg/dL [place] Chloride [Moles/Vol] 110 mmol/L High 98 - 10 7 mmol/L [place] CO2 [Moles/Vol] 17 mmol/L Low 22 - 30 mmol/L [place] Creatinine [Mass/Vol] 2.37 mg/dL High 0.52 - 1.25 mg/dL [place] EGFR IF NonAfrican [place]ritrean 29.2 mL/min Abnormal >60 [place] Comment on above: KDIGO guidelines pro [...] (S/P/Bld) [Vol rate/Area] 33.9 mL/min/{1.73_m2} Abnormal >60 [place] Glucose [Mass/Vol] 139 mg/dL High 70 - 100 mg/dL [place] Potassium [Moles/Vol] 4.3 mmol/L 3.5 - 5.1 mmol/L [place] Protein [Mass/Vol] 5.8 g/dL Low 6.3 - 8.2 g/dL [place] Sodium [Moles/Vol] 136 mmol/L 135 - 145 mmol/L [place] Urea nitrogen [Mass/Vol] 31 mg/dL High 7 - 20 mg/dL [place] D-Dimer, Innovanceon 12-16-2 020 D-Dimer, [employer] 1.54 mg/L High 0.00-0.50 [facility] Comment on above: Result Comment: Inno quach D-Dimer values of <0.50 mg/L FEU can be used in combination with a pre-test probability model (e.g. Well's) to exclude pulmonary embolism (PE) disease, as well as an aid in the diagnosis of deep vein thrombosis (DVT). Performed By: #### H EMOG, CMP3M, CRP2, LDH3, FIBGN, DDI2, APTT, FERR3 #### [facility] [address] [place] [address] D-Dimer, [employer] 1.23 mg/L High 0.00-0.50 [facility] Comment on above: Result Comment: Inno quach D-Dimer values of <0.50 mg/L FEU can be used in combination with a pre-test probability model (e.g. Well's) to exclude pulmonary embolism (PE) disease, as well as an aid in the diagnosis of deep vein thrombosis (DVT). Performed By: #### H EMOG, CMP3M, CRP2, LDH3, FIBGN, DDI2, APTT, FERR3 #### [facility] [address] [place] [address] D-Dimer, Quantitativeon 10-14 D-Dimer, Quant 1.54 mg/L High 0 - 0.5 mg/L [facility], [place] Comment on above: [employer] D-Dimer va lues of <0.50 mg/L FEU can be used in combination with a pre-test probability model (e.g. Well's) to exclude pulmonary embolism (PE) disease, as well as an aid in the diagnosis of deep vein thrombosis (DVT). D-Dimer, Quant 1.23 mg/L High 0 - 0.5 mg/L [facility], [place] Comment on above: [employer] D-Dimer va lues of <0.50 mg/L FEU can be used in combination with a pre-test probability model (e.g. Well's) to exclude pulmonary embolism (PE) disease, as well as an aid in the diagnosis of deep vein thrombosis (DVT). EKG 12 Lead - Chest Painon 1 12-30-2019 Michel, [facility] Incoming Cardiology Results From [facility] - 10/29/2020 9:41 AM EST [facility] Test Date: 2020-10-28 Pat Name: Reggie León Department: 2AED Room: 468 Gender: M Milieu Technician: PARESH : 1965 Requested By: ANDREW Bowden Number: [id number] Reading MD: Usama Cedillo Measurements Intervals [place] Rate: 85 P: 15 NE: 184 QRS: -12 QRSD: 104 T: 73 QT: 408 QTc: 486 Interpretive Statements SINUS RHYTHM Electronically Signed On 10-29-2020 9:40:09 EST by [facility] Test Date: 2020-10-28 Pat Name: Reggie León Department: [facility] Room: 468 Gender: M Milieu Technician: PARESH : 1965 Requested By: ANDREW SILVER Order Number: [id number] Reading MD: Usama Cedillo Measurements Intervals [place] Rate: 85 P: 15 NE: 184 QRS: -12 QRSD: 104 T: 73 QT: 408 QTc: 486 Interpretive Statements SINUS RHYTHM Electronically Signed On 10-29-2020 9:40:09 EST by [place] Ferritinon 10-29-2020 Ferritin [Mass/Vol] 714 ng/mL High 18-464 [facility] Comment on above: Performed By: #### H EMOG, CMP3M, CRP2, LDH3, FIBGN, DDI2, APTT, FERR3 #### [facility] [address] [place] [address] Ferritin [Mass/Vol] 714 ng/mL High 18 - 464 ng/mL [place] Interpretation and review of laboratory results Abnormal [place] Test Performed by [facility], [address], [place], [place] [address] [place] Fibrinogenon 10-29-2020 Fibrinogen 534 mg/dL High 200-400 [facility] Comment on above: Performed By: #### H EMOG, CMP3M, CRP2, LDH3, FIBGN, DDI2, APTT, FERR3 #### [facility] [address] [place] [address] Fibrinogen 534 mg/dL High 200 - 400 mg/dL [place] Fibrinogen 587 mg/dL High 200-400 [facility] Comment on above: Performed By: #### H EMOG, CMP3M, CRP2, LDH3, FIBGN, DDI2, APTT, FERR3 #### [facility] [address] [place] [address] Fibrinogen 587 mg/dL High 200 - 400 mg/dL [place] Hemogramon 10-29-2020 Erythrocyte distribution width (RBC) [Ratio] 14.2 % Normal 11.5-14.5 [facility] Comment on above: Performed By: #### H EMOG, CMP3M, CRP2, LDH3, FIBGN, DDI2, APTT, FERR3 #### [facility] [address] [place] [address] Hematocrit (Bld) [Volume fraction] 37.3 % Low 40.0-52.0 [facility] Comment on above: Performed By: #### H EMOG, CMP3M, CRP2, LDH3, FIBGN, DDI2, APTT, FERR3 #### [facility] [address] [place] [address] Hemoglobin (Bld) [Mass/Vol] 12.6 g/dL Low 13.0-18.0 [facility] Comment on above: Performed By: #### H EMOG, CMP3M, CRP2, LDH3, FIBGN, DDI2, APTT, FERR3 #### [facility] [address] [place] [address] MCH (RBC) [Entitic mass] 29.2 pg Normal 26.0-34.0 [facility] Comment on above: Performed By: #### H EMOG, CMP3M, CRP2, LDH3, FIBGN, DDI2, APTT, FERR3 #### [facility] [address] [place] [address] MCHC (RBC) [Mass/Vol] 33.7 % Normal 32.0-36.0 [facility] Comment on above: Performed By: #### H EMOG, CMP3M, CRP2, LDH3, FIBGN, DDI2, APTT, FERR3 #### [place] [address] [place] [address] MCV (RBC) [Entitic vol] 86.7 fL Normal 80.0-98.0 [facility] Comment on above: Performed By: #### H EMOG, CMP3M, CRP2, LDH3, FIBGN, DDI2, APTT, FERR3 #### [facility] [address] [place] [address] Platelet mean volume (Bld) [Entitic vol] 7.6 fL Normal 7.4-10.4 [facility] Comment on above: Performed By: #### H EMOG, CMP3M, CRP2, LDH3, FIBGN, DDI2, APTT, FERR3 #### [facility] [address] [place] [address] Platelets (Bld) [#/Vol] 255 10*3/uL Normal 140-440 [facility] Comment on above: Performed By: #### H EMOG, CMP3M, CRP2, LDH3, FIBGN, DDI2, APTT, FERR3 #### [facility] [address] [place] [address] RBC (Bld) [#/Vol] 4.30 10*6/uL Low 4.40-5.90 [facility] Comment on above: Performed By: #### H EMOG, CMP3M, CRP2, LDH3, FIBGN, DDI2, APTT, FERR3 #### [facility] [address] [place] [address] WBC (Bld) [#/Vol] 7.8 10*3/uL Normal 3.6-10.7 [facility] Comment on above: Performed By: #### H EMOG, CMP3M, CRP2, LDH3, FIBGN, DDI2, APTT, FERR3 #### [facility] [address] [place] [address] Hemogram w/ Autodiffon 10-29 Abs Baso Cnt 0.0 10*3/uL Normal 0.0-0.2 [facility] Comment on above: Performed By: #### H EMOG, CMP3M, CRP2, LDH3, FIBGN, DDI2, APTT, FERR3 #### [facility] [address] [place] [address] Abs Neutrophile Cnt 3.5 10*3/uL Normal 1.8-7.0 [facility] Comment on above: Performed By: #### H EMOG, CMP3M, CRP2, LDH3, FIBGN, DDI2, APTT, FERR3 #### [facility] [address] [place] [address] Basophils/100 WBC (Bld) 0.3 % Normal 0.0-2.0 S [facility] Comment on above: Performed By: #### H EMOG, CMP3M, CRP2, LDH3, FIBGN, DDI2, APTT, FERR3 #### [facility] [address] [place] [address] Eosinophils (Bld) [#/Vol] 0.0 10*3/uL Normal 0.0-0.5 [facility] Comment on above: Performed By: #### H EMOG, CMP3M, CRP2, LDH3, FIBGN, DDI2, APTT, FERR3 #### [facility] [address] [place] [address] Eosinophils/100 WBC (Bld) 0.0 % Low 1.0-6.0 [facility] Comment on above: Performed By: #### H EMOG, CMP3M, CRP2, LDH3, FIBGN, DDI2, APTT, FERR3 #### [facility] [address] [place] [address] Erythrocyte distribution width (RBC) [Ratio] 13.8 % Normal 11.5-14.5 [facility] Comment on above: Performed By: #### H EMOG, CMP3M, CRP2, LDH3, FIBGN, DDI2, APTT, FERR3 #### [facility] [address] [place] [address] Granulocytes/100 WBC (Bld) 79.4 % Normal 40.0-80.0 [facility] Comment on above: Performed By: #### H EMOG, CMP3M, CRP2, LDH3, FIBGN, DDI2, APTT, FERR3 #### [facility] [address] [place] [address] Hematocrit (Bld) [Volume fraction] 36.7 % Low 40.0-52.0 [facility] Comment on above: Performed By: #### H EMOG, CMP3M, CRP2, LDH3, FIBGN, DDI2, APTT, FERR3 #### [facility] [address] [place] [address] Hemoglobin (Bld) [Mass/Vol] 12.2 g/dL Low 13.0-18.0 [facility] Comment on above: Performed By: #### H EMOG, CMP3M, CRP2, LDH3, FIBGN, DDI2, APTT, FERR3 #### [facility] [address] [place] [address] Lymphocytes (Bld) [#/Vol] 0.4 10*3/uL Low 1.0-4.3 [facility] Comment on above: Performed By: #### H EMOG, CMP3M, CRP2, LDH3, FIBGN, DDI2, APTT, FERR3 #### [place] [address] [place] [address] Lymphocytes/100 WBC (Bld) 8.8 % Low 20.0-40.0 [facility] Comment on above: Performed By: #### H EMOG, CMP3M, CRP2, LDH3, FIBGN, DDI2, APTT, FERR3 #### [facility] [address] [place] [address] MCH (RBC) [Entitic mass] 29.1 pg Normal 26.0-34.0 [facility] Comment on above: Performed By: #### H EMOG, CMP3M, CRP2, LDH3, FIBGN, DDI2, APTT, FERR3 #### [facility] [address] [place] [address] MCHC (RBC) [Mass/Vol] 33.1 % Normal 32.0-36.0 [facility] Comment on above: Performed By: #### H EMOG, CMP3M, CRP2, LDH3, FIBGN, DDI2, APTT, FERR3 #### [facility] [address] [place] [address] MCV (RBC) [Entitic vol] 87.8 fL Normal 80.0-98.0 [facility] Comment on above: Performed By: #### H EMOG, CMP3M, CRP2, LDH3, FIBGN, DDI2, APTT, FERR3 #### [facility] [address] [place] [address] Monocytes (Bld) [#/Vol] 0.5 10*3/uL Normal 0.0-0.8 [facility] Comment on above: Performed By: #### H EMOG, CMP3M, CRP2, LDH3, FIBGN, DDI2, APTT, FERR3 #### [facility] [address] [place] [address] Monocytes/100 WBC (Bld) 11.5 % High 2.0-10.0 S [facility] Comment on above: Performed By: #### H EMOG, CMP3M, CRP2, LDH3, FIBGN, DDI2, APTT, FERR3 #### [facility] [address] [place] [address] Platelet mean volume (Bld) [Entitic vol] 7.9 fL Normal 7.4-10.4 [facility] Comment on above: Performed By: #### H EMOG, CMP3M, CRP2, LDH3, FIBGN, DDI2, APTT, FERR3 #### [facility] [address] [place] [address] Platelets (Bld) [#/Vol] 231 10*3/uL Normal 140-440 [facility] Comment on above: Performed By: #### H EMOG, CMP3M, CRP2, LDH3, FIBGN, DDI2, APTT, FERR3 #### [facility] [address] [place] [address] RBC (Bld) [#/Vol] 4.19 10*6/uL Low 4.40-5.90 [facility] Comment on above: Performed By: #### H EMOG, CMP3M, CRP2, LDH3, FIBGN, DDI2, APTT, FERR3 #### [facility] [address] [place] [address] WBC (Bld) [#/Vol] 4.4 10*3/uL Normal 3.6-10.7 [facility] Comment on above: Performed By: #### H EMOG, CMP3M, CRP2, LDH3, FIBGN, DDI2, APTT, FERR3 #### [facility] [address] [place] [address] LDHon 10-29-2020 LDH 676 U/L High 120-246 [facility] Comment on above: Performed By: #### H EMOG, CMP3M, CRP2, LDH3, FIBGN, DDI2, APTT, FERR3 #### [facility] [address] [place] [address] Lactate Dehydrogenaseon 10-14 LD 676 U/L High 120 - 246 U/L [facility], [place] Lithiumon 10-29-2020 [place] [Moles/Vol] 0.7 mmol/L Normal 0.6-1.2 [facility] Comment on above: Performed By: #### H EMOG, CMP3M, CRP2, LDH3, FIBGN, DDI2, APTT, FERR3 #### [facility] [address] [place] [address] [place] Levelon 10-29-2020 [place] Lvl 0.7 mmol/L 0.6 - 1.2 mmol/L [facility] [place] Otheron 10-29-2020 Interpretation and review of laboratory results Abnormal [facility] [address] [place], [place] Test Performed by [facility], [address] [place], [place] [id number] [place] [address] [place] Interpretation and review of laboratory results Abnormal [facility] [place] Test Performed by [facility], [address] [place], [place] [id number] [place] [address] [place], [place] Interpretation and review of laboratory results Abnormal [facility] [place] Test Performed by [facility], [address] [place] [address] [facility], [place] Procalcitoninon 10-29-2020 Procalcitonin 0.31 ng/mL Abnormal <0.10 [facility] Comment on above: Performed By: #### H EMOG, CMP3M, CRP2, LDH3, FIBGN, DDI2, APTT, FERR3 #### [facility] [address] [place] [address] Interpretation and review of laboratory results Abnormal [place] Procalcitonin 0.31 ng/mL Abnormal <0.10 [place], [place] Sodium [Moles/Vol] See Below [place], [place] Comment on above: PCT <0.50 = Low risk of severe sepsis and/or septic shock. PCT >2.00 = High risk of severe sepsis and/or septic shock. Test Performed by [facility], [address] [place] [address] [place], [place] Vit D 25-OH, Totalon 020 Vit D 25-OH, Total 69 ng/mL Normal 30-100 [facility] Comment on above: Result Comment: Ther apy is based on measurement of Total 25-OHD with the following classification levels: Less than 20 ng/mL: Indicative of Vit D deficiency 20-30 ng/mL: Suggests Vit D insufficiency Optimal: Greater than or equal to 30 ng/mL Test performed by [facility] [employer] [employer], measuring Total Vitamin D, not individual fractions. Performed By: #### H EMOG, CMP3M, CRP2, LDH3, FIBGN, DDI2, APTT, FERR3 #### [facility] [address] [place] [address] Vitamin D 25 Hydroxyon 10-29 Vit D, 25-Hydroxy 69 ng/mL 30 - 100 ng/mL [place], [place] Comment on above: Therapy is based on measurement of Total 25-OHD with the following classification levels: Less than 20 ng/mL: Indicative of Vit D deficiency 20-30 ng/mL: Suggests Vit D insufficiency Optimal: Greater than or equal to 30 ng/mL Test performed by [employer] Immuno[employer], measuring Total Vitamin D, not individual fractions. Test Performed by [facility], [address], [place], [place] [address] [place], [place] Arterial Blood Gas Respirato sarah 10-28-2020 Base Excess -5.8 mmol/L Low -3.0-3.0 [facility] Comment on above: Performed By: #### A BGE #### [facility] [address] [place] [address] CO2 [Moles/Vol] 19.3 mmol/L Low 23.0-27.0 [facility] Comment on above: Performed By: #### A BGE #### [facility] [address] [place] [address] FIO2 21 Normal [facility] Comment on above: Result Comment: Perf ormed by OL[facility] ID: [id number] [place], [place] Performed By: #### A BGE #### [facility] [address] [place] [address] HCO3 (Bld) [Moles/Vol] 18.3 mmol/L Low 21.0-25.0 S [facility] Comment on above: Performed By: #### A BGE #### [facility] [address] [place] [address] Oxygen (Bld) [Partial pressure] 69.8 mm[Hg] Low 80.0-100.0 [facility] Comment on above: Performed By: #### A BGE #### [facility] [address] [place] [address] Oxygen saturation in Blood 93.6 % Low 95.0-100.0 [facility] Comment on above: Performed By: #### A BGE #### [facility] [address] [place] [address] pCO2 31.2 mm[Hg] Low 35.0-45.0 [facility] Comment on above: Performed By: #### A BGE #### [facility] [address] [place] [address] pH (Bld) 7.376 Normal 7.350-7.45 0 [facility] Comment on above: Performed By: #### A BGE #### [facility] [address] [place] [address] Brain Natriuretic Peptideon 10-28-2020 Natriuretic peptide B (Bld) [Mass/Vol] 47 pg/mL 0 - 125 pg/mL [facility], [place] CR Chest Portableon 10-28-20 20 CR Chest Portable Patient Name: REGGIE WILSON Diagnostic Radiology ACCESSION EXAM DATE/TIME PROCEDURE ORDERING PROVIDER [id number] 10/28/2020 15:05 EST CR Chest Portable BALAJI SILVER DANIEL M CPT code 16105 Reason For Exam (CR Chest Portable) dyspnea [...] Transcribed Date and Time: 10/28/2020 3:21 Normal [facility] Comp Metabolic Panelon 10-28 ALP [Catalytic activity/Vol] 82 U/L Normal 38-126 [facility] Comment on above: Performed By: #### H EMOG, CMP3M, CRP2, LDH3, FIBGN, DDI2, APTT, FERR3 #### [facility] [address] [place] [address] ALT [Catalytic activity/Vol] 60 U/L High 0-49 [facility] Comment on above: Result Comment: The ALT test is performed by an updated assay method. Please note that the reference intervals have been changed and are now sex specific. Performed By: #### H EMOG, CMP3M, CRP2, LDH3, FIBGN, DDI2, APTT, FERR3 #### [facility] [address] [place] [address] Calcium [Mass/Vol] 8.6 mg/dL Normal 8.4-10.4 [facility] Comment on above: Performed By: #### H EMOG, CMP3M, CRP2, LDH3, FIBGN, DDI2, APTT, FERR3 #### [facility] [address] [place] [address] Glucose [Mass/Vol] 122 mg/dL High 70-100 [facility] Comment on above: Performed By: #### H EMOG, CMP3M, CRP2, LDH3, FIBGN, DDI2, APTT, FERR3 #### [facility] [address] [place] [address] Protein [Mass/Vol] 6.2 g/dL Low 6.3-8.2 [facility] Comment on above: Performed By: #### H EMOG, CMP3M, CRP2, LDH3, FIBGN, DDI2, APTT, FERR3 #### [facility] [address] [place] [address] Urea nitrogen [Mass/Vol] 35 mg/dL High 7-20 [facility] Comment on above: Performed By: #### H EMOG, CMP3M, CRP2, LDH3, FIBGN, DDI2, APTT, FERR3 #### [facility] [address] [place] [address] Anion gap [Moles/Vol] 9 Normal [facility] Comment on above: Performed By: #### H EMOG, CMP3M, CRP2, LDH3, FIBGN, DDI2, APTT, FERR3 #### [facility] [address] [place] [address] AST [Catalytic activity/Vol] 87 U/L High 15-46 [facility] Comment on above: Performed By: #### H EMOG, CMP3M, CRP2, LDH3, FIBGN, DDI2, APTT, FERR3 #### [facility] [address] [place] [address] Bilirubin [Mass/Vol] 0.6 mg/dL Normal 0.2-1.3 [facility] Comment on above: Performed By: #### H EMOG, CMP3M, CRP2, LDH3, FIBGN, DDI2, APTT, FERR3 #### [facility] [address] [place] [address] CO2 [Moles/Vol] 22 mmol/L Normal 22-30 [facility] Comment on above: Performed By: #### H EMOG, CMP3M, CRP2, LDH3, FIBGN, DDI2, APTT, FERR3 #### [facility] [address] [place] [address] Creatinine [Mass/Vol] 2.96 mg/dL High 0.52-1.25 [facility] Comment on above: Performed By: #### H EMOG, CMP3M, CRP2, LDH3, FIBGN, DDI2, APTT, FERR3 #### [facility] [address] [place] [address] GFR/1.73 sq M predicted among blacks MDRD (S/P/Bld) [Vol rate/Area] 25.9 mL/min/{1.73_m2} Abnormal >60 [facility] Comment on above: Performed By: #### H EMOG, CMP3M, CRP2, LDH3, FIBGN, DDI2, APTT, FERR3 #### [facility] [address] [place] [address] GFR/1.73 sq M predicted among non-blacks MDRD (S/P/Bld) [Vol rate/Area] 22.3 mL/min/{1.73_m2} Abnormal >60 [facility] Comment on above: Result Comment: KDIG O [...] CRP2, LDH3, FIBGN, DDI2, APTT, FERR3 #### [facility] [address] [place] [address] Chloride [Moles/Vol] 101 mmol/L Normal 98-107 [facility] Comment on above: Performed By: #### H EMOG, CMP3M, CRP2, LDH3, FIBGN, DDI2, APTT, FERR3 #### [facility] [address] [place] [address] Potassium [Moles/Vol] 3.1 mmol/L Low 3.5-5.1 [facility] Comment on above: Performed By: #### H EMOG, CMP3M, CRP2, LDH3, FIBGN, DDI2, APTT, FERR3 #### [facility] [address] [place] [address] Sodium [Moles/Vol] 133 mmol/L Low 135-145 [facility] Comment on above: Performed By: #### H EMOG, CMP3M, CRP2, LDH3, FIBGN, DDI2, APTT, FERR3 #### [facility] [address] [place] [address] Albumin [Mass/Vol] 3.3 g/dL Low 3.5-5.0 [facility] Comment on above: Performed By: #### H EMOG, CMP3M, CRP2, LDH3, FIBGN, DDI2, APTT, FERR3 #### [facility] [address] [place] [address] Complete Urinalysison 2019 Amorphous Crystal Few Abnormal Negative [facility] Comment on above: Result Comment: . Performed By: #### C UA2 #### [facility] [address] [place] [address] Appearance (U) Clear Normal Clear [facility] Comment on above: Result Comment: . Performed By: #### C UA2 #### [facility] [address] [place] [address] Bacteria LM.HPF (Urine sed) [#/Area] Few Abnormal Negative [facility] Comment on above: Result Comment: . Performed By: #### C UA2 #### [facility] [address] [place] [address] Bilirubin,Urine Negative Normal Negative [facility] Comment on above: Result Comment: . Performed By: #### C UA2 #### [facility] [address] [place] [address] Cast, Granular 0 - 2 Abnormal Negative [facility] Comment on above: Result Comment: . Performed By: #### C UA2 #### [facility] [address] [place] [address] Cast, Hyaline 3 - 5 Abnormal Negative [facility] Comment on above: Result Comment: . Performed By: #### C UA2 #### [facility] [address] [place] [address] Color (U) Yellow Normal Lt. Yellow [facility] Comment on above: Result Comment: . Performed By: #### C UA2 #### [facility] [address] [place] [address] Glucose Ql (U) Normal Normal Normal (<70) [facility] Comment on above: Result Comment: . Performed By: #### C UA2 #### [facility] [address] [place] [address] Ketone,Urine Negative Normal Negative [facility] Comment on above: Result Comment: . Performed By: #### C UA2 #### [facility] [address] [place] [address] Leukocytes,Urine Negative Normal Negative [facility] Comment on above: Result Comment: . Performed By: #### C UA2 #### [facility] [address] [place] [address] Mucous Threads Few Normal Negative [facility] Comment on above: Result Comment: . Performed By: #### C UA2 #### [facility] [address] [place] [address] Nitrites,Urine Negative Normal Negative [facility] Comment on above: Result Comment: . Performed By: #### C UA2 #### [facility] [address] [place] [address] Non-Squamous Epithelial < 1 Abnormal Negative S [facility] Comment on above: Result Comment: . Performed By: #### C UA2 #### [facility] [address] [place] [address] Occult Blood,Urine Negative Normal Negative [facility] Comment on above: Result Comment: . Performed By: #### C UA2 #### [facility] [address] [place] [address] pH (U) 5.5 Normal 5.0-8.0 [facility] Comment on above: Result Comment: . Performed By: #### C UA2 #### [facility] [address] [place] [address] Protein (U) [Mass/Vol] 20 mg/dL Abnormal Negative [facility] Comment on above: Result Comment: . Performed By: #### C UA2 #### [facility] [address] [place] [address] RBC LM.HPF (Urine sed) [#/Area] 0 - 2 Normal 0-2 [facility] Comment on above: Result Comment: . Performed By: #### C UA2 #### [place] [address] [place] [address] Specific [place],Urine 1.015 Normal 1.005 - 1.030 [facility] Comment on above: Result Comment: . Performed By: #### C UA2 #### [facility] [address] [place] [address] Squamous Epithelial 0 - 2 Normal 3-5 [facility] Comment on above: Result Comment: . Performed By: #### C UA2 #### [facility] [address] [place] [address] Urobilinogen,Urine Normal Normal Normal (0-1) [facility] Comment on above: Result Comment: . Performed By: #### C UA2 #### [facility] [address] [place] [address] WBC LM.HPF (Urine sed) [#/Area] 0 - 2 Normal 0-5 [facility] Comment on above: Result Comment: . Performed By: #### C UA2 #### [place] [address] [place] [address] Comprehensive Metabolic Pane rhaul 10-28-2020 Albumin [Mass/Vol] 3.3 g/dL Low 3.5 - 5 g/dL [place] ALP [Catalytic activity/Vol] 82 U/L 38 - 126 U/L [place] ALT [Catalytic activity/Vol] 60 U/L High 0 - 49 U/L [place] Comment on above: The ALT test is perf ormed by an updated assay method. Please note that the reference intervals have been changed and are now sex specific. Anion gap [Moles/Vol] 9 mmol/L [place], [place] AST [Catalytic activity/Vol] 87 U/L High 15 - 46 U/L [place] Bilirubin Ql (U) 0.6 mg/dL 0.2 - 1.3 mg/dL [place] Calcium [Mass/Vol] 8.6 mg/dL 8.4 - 10. 4 mg/dL [place] Chloride [Moles/Vol] 101 mmol/L 98 - 10 7 mmol/L [place] CO2 [Moles/Vol] 22 mmol/L 22 - 30 mmol/L [place] Creatinine [Mass/Vol] 2.96 mg/dL High 0.52 - 1.25 mg/dL [place] EGFR IF NonAfrican [place]an 22.3 mL/min Abnormal >60 [place] Comment on above: KDIGO guidelines pro [...] (S/P/Bld) [Vol rate/Area] 25.9 mL/min/{1.73_m2} Abnormal >60 [place] Glucose [Mass/Vol] 122 mg/dL High 70 - 100 mg/dL [place] Interpretation and review of laboratory results Abnormal [place] Potassium [Moles/Vol] 3.1 mmol/L Low 3.5 - 5.1 mmol/L [place] Protein [Mass/Vol] 6.2 g/dL Low 6.3 - 8.2 g/dL [place] Sodium [Moles/Vol] 133 mmol/L Low 135 - 145 mmol/L [place] Urea nitrogen [Mass/Vol] 35 mg/dL High 7 - 20 mg/dL [place] ED Provider Noteon 0 ED Provider Note Emergency Department Encounter [facility] Patient: Reggie León : 1965 Date of Evaluation: 10/28/2020 ED Supervising Physician: Otf Long, I independently examined and evaluated Reggie León. In brief, Reggie León is a 55 y.o. male that presents to the emergency department with increased shortness of breath from his detention. Patient has a known COVID-19 infection. Patient [...] and cough. CELINA spoke with the patient's detention who states that he was on 4 [...] EKG: Sinus rhythm rate 85, QTC 486, NE interval 184, Q wave in lead 3, [...] occasionally words are mis-transcribed.) Otf Long, DO [employer] Otf Long DO 10/28/20 1823 Normal [facility] eNCOUnter Pt Name: Reggie León Birthdate 1965 Date of evaluation: 10/28/2020 Provider: Andrew Silver, NICKI - [facility] This patient was seen in conjunction with Dr. Long CHIEF COMPLAINT Chief Complaint Patient presents with ? Shortness of Breath HISTORY OF PRESENT ILLNESS (Location/Symptom, Timing/Onset,Context/Setti ng, Quality, Duration, Modifying Factors, Severity) Note limiting factors. HPI Reggie León is a 55 y.o. male who presents to the emergency department with fever and low pulse oximetry. Patient resides at an [facility] care facility, was diagnosed with Covid 19 [...] file Gets together: Not on file Attends jehovah's witness service: Not on file Active member of [...] History Narrative ? Not on file SCREENINGS @FLOW([id number])@ PHYSICAL EXAM (5+ for level 4, 8+ [...] Department physician in the absence of a quotation checker. Please see their accompanying note for interpretation. RADIOLOGY (Per EmergencyPhysician): Interpretation per the Radiologist below, if available at the time of this note: Xr Chest Portable Result Date: 10/28/2020 Patient Name: REGGIE LEÓN Diagnostic Radiology ACCESSION EXAM DATE/TIME PROCEDURE ORDERING PROVIDER [id number] 10/28/2020 15:05 EST CR Chest Portable BALAJI SILVER DANIEL M CPT code 27110 Reason For Exam (CR Chest Portable) dyspnea [...] (*) eGFR 25.9 (*) EGFR IF NonAfrican Eritrean 22.3 (*) Albumin,Serum 3.3 (*) Total Protein 6.2 (*) ALT 60 (*) AST 87 (*) All other components within normal limits Narrative: Test Performed by [facility], [address] [place] [address] CBC WITH AUTO DIFFERENTIAL - Abnormal; Notable for the following components: Hemoglobin 12.9 (*) Hematocrit 38.1 (*) Lymphocyte % 13.6 (*) Monocytes 17.8 (*) Eosinophils 0.8 (*) Absolute Lymph # 0.6 (*) All other components within normal limits Narrative: Test Performed by [facility], [address] [place] [address] POCT ARTERIAL - Abnormal; Notable for the following components: pCO2, Arterial 31.2 (*) pO2, Arterial 69.8 (*) HCO3, Arterial 18.3 (*) Base Excess, Arterial -5.8 (*) O2 Sat, Arterial 93.6 (*) TCO2, Arterial 19.3 (*) All other components within normal limits Narrative: Test Performed by [facility], [address] [place] [address] BRAIN NATRIURETIC PEPTIDE Narrative: Test Performed by [facility], [address] [place] [address] TROPONIN Narrative: Test Performed by [facility], [address] [place] [address] LACTIC ACID, PLASMA Narrative: Test Performed by [facility], [employer] [address] [place] [address] URINALYSIS POCT ARTERIAL All other labs were [...] Emergency Medicine Provider NICKI Bustillo CNP 10/28/20 2700 Normal [facility] Hemogram (CBC) w/Auto Diffon 10-28-2020 Absolute Baso # 0.0 10*3/uL 0 - 0.2 10*3/uL [facility] [place], [place] Absolute Neut # 3.1 10*3/uL 1.8 - 7 10*3/uL [place] Basophils/100 WBC (Bld) 0.7 % 0 - 2 % [place], [place] Eosinophils (Bld) [#/Vol] 0.0 10*3/uL 0 - 0.5 10*3/uL [place] Eosinophils/100 WBC (Bld) 0.8 % Low 1 - 6 % [place] Erythrocyte distribution width (RBC) [Ratio] 14.0 % 11.5 - 14.5 % [place] Granulocytes/100 WBC (Bld) 67.1 % 40 - 80 % [place] Hematocrit (Bld) [Volume fraction] 38.1 % Low 40 - 52 % [place] Hemoglobin (Bld) [Mass/Vol] 12.9 g/dL Low 13 - 18 g/dL [place] Interpretation and review of laboratory results Abnormal [place] Lymphocytes (Bld) [#/Vol] 0.6 10*3/uL Low 1 - 4.3 10*3/uL [place] Lymphocytes/100 WBC (Bld) 13.6 % Low 20 - 40 % [place] MCH (RBC) [Entitic mass] 29.2 pg 26 - 34 pg [place] MCHC (RBC) [Mass/Vol] 33.9 % 32 - 36 % [place] MCV (RBC) [Entitic vol] 86.2 fL 80 - 98 fL [place], [place] Monocytes (Bld) [#/Vol] 0.8 10*3/uL 0 - 0.8 10*3/uL [place] Monocytes/100 WBC (Bld) 17.8 % High 2 - 10 % [place], [place] Platelet mean volume (Bld) [Entitic vol] 7.4 fL 7.4 - 10.4 fL [place] Platelets (Bld) [#/Vol] 223 10*3/uL 140 - 440 10*3/uL [place] RBC (Bld) [#/Vol] 4.42 10*6/uL 4.4 - 5.9 10*6/uL [place] [place] WBC (Bld) [#/Vol] 4.6 10*3/uL 3.6 - 10.7 10*3/uL [place] Test Performed by [facility], [address] [place] [address] [place] Hemogram w/ Autodiffon 10-28 Abs Baso Cnt 0.0 10*3/uL Normal 0.0-0.2 [facility] Comment on above: Performed By: #### H EMOG, CMP3M, CRP2, LDH3, FIBGN, DDI2, APTT, FERR3 #### [facility] [address] [place] [address] Abs Neutrophile Cnt 3.1 10*3/uL Normal 1.8-7.0 [facility] Comment on above: Performed By: #### H EMOG, CMP3M, CRP2, LDH3, FIBGN, DDI2, APTT, FERR3 #### [facility] [address] [place] [address] Basophils/100 WBC (Bld) 0.7 % Normal 0.0-2.0 [facility] Comment on above: Performed By: #### H EMOG, CMP3M, CRP2, LDH3, FIBGN, DDI2, APTT, FERR3 #### [facility] [address] [place] [address] Eosinophils (Bld) [#/Vol] 0.0 10*3/uL Normal 0.0-0.5 [facility] Comment on above: Performed By: #### H EMOG, CMP3M, CRP2, LDH3, FIBGN, DDI2, APTT, FERR3 #### [facility] [address] [place] [address] Eosinophils/100 WBC (Bld) 0.8 % Low 1.0-6.0 [facility] Comment on above: Performed By: #### H EMOG, CMP3M, CRP2, LDH3, FIBGN, DDI2, APTT, FERR3 #### [facility] [address] [place] [address] Erythrocyte distribution width (RBC) [Ratio] 14.0 % Normal 11.5-14.5 [facility] Comment on above: Performed By: #### H EMOG, CMP3M, CRP2, LDH3, FIBGN, DDI2, APTT, FERR3 #### [facility] [address] [place] [address] Granulocytes/100 WBC (Bld) 67.1 % Normal 40.0-80.0 [facility] Comment on above: Performed By: #### H EMOG, CMP3M, CRP2, LDH3, FIBGN, DDI2, APTT, FERR3 #### [facility] [address] [place] [address] Hematocrit (Bld) [Volume fraction] 38.1 % Low 40.0-52.0 [facility] Comment on above: Performed By: #### H EMOG, CMP3M, CRP2, LDH3, FIBGN, DDI2, APTT, FERR3 #### [facility] [address] [place] [address] Hemoglobin (Bld) [Mass/Vol] 12.9 g/dL Low 13.0-18.0 [facility] Comment on above: Performed By: #### H EMOG, CMP3M, CRP2, LDH3, FIBGN, DDI2, APTT, FERR3 #### [facility] [address] [place] [address] Lymphocytes (Bld) [#/Vol] 0.6 10*3/uL Low 1.0-4.3 [facility] Comment on above: Performed By: #### H EMOG, CMP3M, CRP2, LDH3, FIBGN, DDI2, APTT, FERR3 #### [facility] [address] [place] [address] Lymphocytes/100 WBC (Bld) 13.6 % Low 20.0-40.0 [facility] Comment on above: Performed By: #### H EMOG, CMP3M, CRP2, LDH3, FIBGN, DDI2, APTT, FERR3 #### [facility] [address] [place] [address] MCH (RBC) [Entitic mass] 29.2 pg Normal 26.0-34.0 [facility] Comment on above: Performed By: #### H EMOG, CMP3M, CRP2, LDH3, FIBGN, DDI2, APTT, FERR3 #### [facility] [address] [place] [address] MCHC (RBC) [Mass/Vol] 33.9 % Normal 32.0-36.0 [facility] Comment on above: Performed By: #### H EMOG, CMP3M, CRP2, LDH3, FIBGN, DDI2, APTT, FERR3 #### [facility] [address] [place] [address] MCV (RBC) [Entitic vol] 86.2 fL Normal 80.0-98.0 [facility] Comment on above: Performed By: #### H EMOG, CMP3M, CRP2, LDH3, FIBGN, DDI2, APTT, FERR3 #### [facility] [address] [place] [address] Monocytes (Bld) [#/Vol] 0.8 10*3/uL Normal 0.0-0.8 [facility] Comment on above: Performed By: #### H EMOG, CMP3M, CRP2, LDH3, FIBGN, DDI2, APTT, FERR3 #### [facility] [address] [place] [address] Monocytes/100 WBC (Bld) 17.8 % High 2.0-10.0 [facility] Comment on above: Performed By: #### H EMOG, CMP3M, CRP2, LDH3, FIBGN, DDI2, APTT, FERR3 #### [facility] [address] [place] [address] Platelet mean volume (Bld) [Entitic vol] 7.4 fL Normal 7.4-10.4 [facility] Comment on above: Performed By: #### H EMOG, CMP3M, CRP2, LDH3, FIBGN, DDI2, APTT, FERR3 #### [facility] [address] [place] [address] Platelets (Bld) [#/Vol] 223 10*3/uL Normal 140-440 [facility] Comment on above: Performed By: #### H EMOG, CMP3M, CRP2, LDH3, FIBGN, DDI2, APTT, FERR3 #### [facility] [address] [place] [address] RBC (Bld) [#/Vol] 4.42 10*6/uL Normal 4.40-5.90 [facility] Comment on above: Performed By: #### H EMOG, CMP3M, CRP2, LDH3, FIBGN, DDI2, APTT, FERR3 #### [facility] [address] [place] [address] WBC (Bld) [#/Vol] 4.6 10*3/uL Normal 3.6-10.7 [facility] Comment on above: Performed By: #### H EMOG, CMP3M, CRP2, LDH3, FIBGN, DDI2, APTT, FERR3 #### [facility] [address] [place] [address] Lactic Acidon 10-28-2020 Lactate [Moles/Vol] 1.6 mmol/L Normal 0.7-2.0 [facility] Comment on above: Performed By: #### H EMOG, CMP3M, CRP2, LDH3, FIBGN, DDI2, APTT, FERR3 #### [facility] [address] [place] [address] Lactic Acid, Plasmaon 2019 Lactate [Moles/Vol] 1.6 mmol/L 0.7 - 2 mmol/L [facility], [place] NT pro BNPon 10-28-2020 Natriuretic peptide B (Bld) [Mass/Vol] 47 pg/mL Normal 0-125 [facility] Comment on above: Performed By: #### H EMOG, CMP3M, CRP2, LDH3, FIBGN, DDI2, APTT, FERR3 #### [facility] [address] [place] [address] Otheron 10-28-2020 Test Performed by [facility], [address] [place] [address] [place] Test Performed by [facility], [address] [place], [place] [address] [place] POCT Arterialon 10-28-2020 Base Excess, Arterial -5.8 mmol/L Low -3 - 3 mmol/L [place] HCO3, Arterial 18.3 mmol/L Low 21 - 25 mmol/L [place] Interpretation and review of laboratory results Abnormal [place] Oxygen saturation in Blood 93.6 % Low 95 - 100 % [place] pCO2, Arterial 31.2 mm[Hg] Low 35 - 45 mm[Hg] [place] pH, Arterial 7.376 [place] pO2, Arterial 69.8 mm[Hg] Low 80 - 100 mm[Hg] [place] Sodium [Moles/Vol] 21 mmol/L [place] Comment on above: Performed by CLIA ID : [id number] [place], [place] TCO2, Arterial 19.3 mmol/L Low 23 - 27 mmol/L [place] Test Performed by [facility], [address] [place], [place], [place] [address] [place] Procalcitoninon 10-28-2020 Interpretation See Below Normal [facility] Comment on above: Result Comment: PCT <0.50 = Low risk of severe sepsis and/or septic shock. PCT >2.00 = High risk of severe sepsis and/or septic shock. Performed By: #### H EMOG, CMP3M, CRP2, LDH3, FIBGN, DDI2, APTT, FERR3 #### [facility] [address] [place] [address] Respiratory Panel, Molecular , with COVID-19 (Restricted: [...] management decisions. This assay was developed by [employer] and distributed under an Emergency Use Authorization (EUA) granted by the FDA for the qualitative detection of SARS-CoV-2 nucleic acid. Provider and patient fact sheets can be found at https://www.fda.gov/media/ 121790/download and https://www.fda.gov/media/ 034164/download. [place] Test Performed by [facility], [address] [place] [address] [place] Troponin Ion 10-28-2020 Troponin I.cardiac [Mass/Vol] ng/mL Normal 0.000-0.03 4 [facility] Comment on above: Result Comment: . Performed By: #### H EMOG, CMP3M, CRP2, LDH3, FIBGN, DDI2, APTT, FERR3 #### [facility] [address] [place] [address] Troponin x1on 10-28-2020 Troponin I.cardiac [Mass/Vol] ng/mL 0 - 0.034 ng/mL [place] Comment on above: . Urinalysison 10-28-2020 AMORPHOUS CRYSTAL Few Abnormal Negative /[HPF] [place] Comment on above: . Appearance (U) Clear Clear NA [place] Comment on above: . Bacteria, UA Few Abnormal Negative /[HPF] [place] Comment on above: . Bilirubin Urine Negative Negative mg/dL [place] Comment on above: . Color (U) Yellow Lt. Yellow NA [place] Comment on above: . Glucose, Ur Normal Normal (<70) mg/dL [place] Comment on above: . Granular Casts, UA 0-2 Abnormal Negative /[LPF] [place] Comment on above: . Hyaline Casts, UA 3-5 Abnormal Negative /[LPF] [place] Comment on above: . Interpretation and review of laboratory results Abnormal [place] Ketones Ql (U) Negative Negative mg/dL [place] Comment on above: . LEUKOCYTES, UA Negative Negative Mary/uL [place] Comment on above: . Mucous Threads Few Negative /[LPF] [place] Comment on above: . Nitrite, Urine Negative Negative NA [place] Comment on above: . Non-Squamous Epithelial <1 Abnormal Nega tive /[HPF] [place] Comment on above: . Occult Blood,Urine Negative Negative mg/dL [place] Comment on above: . pH (U) 5.5 [pH] [place] Comment on above: . Protein (U) [Mass/Vol] 20 mg/dL Abnormal Negative [place] Comment on above: . RBC (U) [#/Vol] 0-2 0 - 2 /[HPF] [place] Comment on above: . Specific Virgin, Urine 1.015 M [place] Comment on above: . Squam Epithel, UA 0-2 3 - 5 /[HPF] [place] Comment on above: . Urobilinogen, Urine Normal Normal (0-1) mg/dL [place] Comment on above: . WBC, UA 0-2 0 - 5 /[HPF] [place] Comment on above: . Test Performed by [facility], [address] [place], [place] [address] [place] XR CHEST PORTABLEon 10-28-20 20 [place], [facility] Incoming Radiology Results From [facility] - 10/28/2020 3:21 PM EST Patient Name: REGGIE LEÓN Diagnostic Radiology ACCESSION EXAM DATE/TIME PROCEDURE ORDERING PROVIDER [id number] 10/28/2020 15:05 EST CR Chest Portable BALAJI SILVER DANIEL M CPT code 64677 Reason For Exam (CR Chest Portable) dyspnea [...] JOHN Transcribed Date and Time: 10/28/2020 3:21 [place] Patient Name: REGGIE WILSON Diagnostic Radiology ACCESSION EXAM DATE/TIME PROCEDURE ORDERING PROVIDER [id number] 10/28/2020 15:05 EST CR Chest Portable BALAJI SILVER DANIEL M CPT code 57042 Reason For Exam (CR Chest Portable) dyspnea [...] JOHN Transcribed Date and Time: 10/28/2020 3:21 [facility] with eGFRon 05-05-2020 Age - Reported 54 years Normal [facility] Comment on above: Performed By: #### 2 81818 #### [facility],[address] [place] [address] Anion gap [Moles/Vol] 11 mmol/L Normal 10 - 20 [facility] Comment on above: Performed By: #### 2 95506 #### [facility],[address] [place] [address] Calcium [Mass/Vol] 9.5 mg/dL Normal 8.6 - 10.2 [facility] Comment on above: Performed By: #### 2 09726 #### [facility],[address] [place] [address] CO2 [Moles/Vol] 24.7 mmol/L Normal 21.0 - 31.0 [facility] Comment on above: Performed By: #### 2 72468 #### [facility],[address] [place] [address] GFR/1.73 sq M predicted among non-blacks MDRD (S/P/Bld) [Vol rate/Area] 27 ML/MINUTE Low 60 - 999 [facility] Comment on above: Performed By: #### 2 81406 #### [facility],[address] [place] [address] GFR/1.73 sq M predicted among non-blacks MDRD (S/P/Bld) [Vol rate/Area] 33 ML/MINUTE Low 60 - 999 [facility] Comment on above: Result Comment: ACCO RDING TO THE NATIONAL KIDNEY DISEASE EDUCATION PROGRAM(NKDE), A NORMAL eGFR IS A VALUE GREATER THAN OR EQUAL TO 60 ML/MIN/1.73 SQ METERS. CHRONIC KIDNEY DISEASE: <60mL/MIN/1.73 SQ METERS KIDNEY FAILURE: <15mL/MIN/1.73 SQ METERS THIS TEST SHOULD ONLY BE USED FOR PATIENTS 18 YEARS OF AGE AND OLDER. Performed By: #### 2 39703 #### [facility],[address] [place] [address] GFR/1.73 sq M predicted among non-blacks MDRD (S/P/Bld) [Vol rate/Area] Normal [facility] Comment on above: Result Comment: BASI C METABOLIC PANEL Performed By: #### 2 57555 #### [address] [address] Glucose [Mass/Vol] 113 mg/dL High 74 - 106 [facility] Comment on above: Performed By: #### 2 29784 #### [address] [address] Potassium [Moles/Vol] 4.1 mmol/L Normal 3.5 - 5.1 [facility] Comment on above: Performed By: #### 2 60904 #### [address] [address] Urea nitrogen [Mass/Vol] 24 mg/dL High 6 - 20 [facility] Comment on above: Performed By: #### 2 72294 #### [address] [address] CBC + DIFFon 05-05-2020 Basophils (Bld) [#/Vol] 0.10 x10EE3/UL Normal 0. 00 - 0.10 [facility] Comment on above: Performed By: #### 2 50817 #### [address] [address] Basophils/100 WBC (Bld) 0.9 % Normal 0.0 - 2.[address] [facility] Comment on above: Performed By: #### 2 34367 #### [address] [address] CBC + DIFF Normal [facility] Comment on above: Result Comment: CBC- COMPLETE BLOOD COUNT Performed By: #### 2 67874 #### [facility],[address] [place], [place] [address] Eosinophils (Bld) [#/Vol] 0.40 x10EE3/UL Normal 0.00 - 0.50 [facility] Comment on above: Performed By: #### 2 03438 #### [facility],[address] [place], [place] [address] Eosinophils/100 WBC (Bld) 5.4 % Normal 0.0 - 7.0 [facility] Comment on above: Performed By: #### 2 76880 #### [facility],[address] [place], [place] [address] Erythrocyte distribution width (RBC) [Ratio] 12.7 % Normal 12.0 - 15.6 [facility] Comment on above: Performed By: #### 2 50502 #### [facility],[address] [place], [place] [address] Hematocrit (Bld) [Volume fraction] 37.0 % Low 40.0 - 52.0 [facility] Comment on above: Performed By: #### 2 94052 #### [facility],[address] [place] [address] Hemoglobin (Bld) [Mass/Vol] 13.0 g/dL Normal 13.0 - 17.5 [facility] Comment on above: Performed By: #### 2 90368 #### [facility],[address] [place] [address] Lymphocytes (Bld) [#/Vol] 1.50 x10EE3/UL Normal 0.80 - 2.80 [facility] Comment on above: Performed By: #### 2 03979 #### [facility],[address] [place] [address] Lymphocytes/100 WBC (Bld) 18.7 % Low 20.0 - 45.0 [facility] Comment on above: Performed By: #### 2 16907 #### [facility],[address] [place] [address] MANUAL DIFF N/A Normal [facility] Comment on above: Performed By: #### 2 64932 #### [facility],[address] [place], [place] [address] MCH (RBC) [Entitic mass] 31 pg Normal 27 - 33 [facility] Comment on above: Performed By: #### 2 17542 #### [facility],[address] [place] [address] MCHC (RBC) [Mass/Vol] 35 X10 3 Normal 32 - 36 [facility] Comment on above: Performed By: #### 2 19965 #### [facility],[address] [place], [place] [address] MCV (RBC) [Entitic vol] 87 fL Normal 81 - [address] [facility] Comment on above: Performed By: #### 2 64077 #### [facility],[address] [place] [address] Monocytes (Bld) [#/Vol] 1.20 x10EE3/UL High 0. 20 - 1.00 [facility] Comment on above: Performed By: #### 2 87575 #### [facility],[address] [place] [address] MONOS % 14.8 % High 0.0 - 10.0 [facility] Comment on above: Performed By: #### 2 23962 #### [facility],[address] [place] [address] Morphology Crispin (Bld) [Interp] N/A Normal [facility] Comment on above: Performed By: #### 2 95144 #### [facility],[address] [place] [address] Neutrophils (Bld) [#/Vol] 4.80 x10EE3/UL Normal 1.50 - 7.10 [facility] Comment on above: Performed By: #### 2 91972 #### [facility],[address] [place] [address] Neutrophils/100 WBC (Bld) 60.2 % Normal 46.0 - 76.0 [facility] Comment on above: Performed By: #### 2 38536 #### [facility],[address] [place] [address] Platelet mean volume (Bld) [Entitic vol] 7.2 fL Normal 6.4 - 10.5 [facility] Comment on above: Result Comment: AUTO MATED DIFFERENTIAL Performed By: #### 2 31913 #### [address] [address] Platelets (Bld) [#/Vol] 286 x10EE3/UL Normal 150 - 450 [facility] Comment on above: Performed By: #### 2 06170 #### [facility],[address] [place] [address] RBC (Bld) [#/Vol] 4.24 x 10EE6/UL Low 4.50 - 6.00 [facility] Comment on above: Performed By: #### 2 67111 #### [facility],[address] [place] [address]86 WBC (Bld) [#/Vol] 8.0 x 10EE3/UL Normal 4.5 - 10.8 [facility] Comment on above: Performed By: #### 2 67401 #### [facility],[address] [place] [address] CULTURE URINEon 05-05-2020 CULTURE URINE CULTURE URINE _URINE CULTURE_ M I C R O B I O L O G Y R E P O R T FINAL ------- Antimicrobial Susceptibility and Organism Identification Report -------- Specimen Number : [id number] Requested : 05/05/20 Specimen Source : URINE Collected : 05/05/20 03:00 Arredondo of Isolation : MEME HUANG Received : 05/05/20 03:00 Requesting Physician : FLORECITA -- Patient/Specimen Tests and Comments Specimen Comments -------- -------- FINAL REPORT: NO GROWTH AT 48 HOURS -- Tech : Source : URINE ID # : [id number] FINAL Report Date : / / : Collected : 05/05/20 03:00 05/07/20.1244.KLS. 05/06/20.0705.JLN. 05/07/20.1245.KLS.COMPLETE Normal [facility] Comment on above: Performed By: #### 2 04387 #### [facility],[address] [place] [address] LITHIUMon 05-05-2020 [place] [Moles/Vol] 0.9 mmol/L Normal 0.6 - 1.2 [facility] Comment on above: Performed By: #### 2 62414 #### [facility],[address] [place] [address] RENAL FUNCTION PANELon 05-05 Albumin [Mass/Vol] 3.3 g/dL Low 3.4 - 4.8 [facility] Comment on above: Performed By: #### 2 44446 #### [facility],[address] [place] [address] B/C RATIO 10 ratio Normal 0 - 30 [facility] Comment on above: Performed By: #### 2 80732 #### [facility],[address] [place] [address]104 Chloride [Moles/Vol] 107 mmol/L Normal 98 - 107 [facility] Comment on above: Performed By: #### 2 05551 #### [facility],[address] [place] [address] Creatinine [Mass/Vol] 2.5 mg/dL High 0.7 - 1.3 [facility] Comment on above: Performed By: #### 2 20314 #### [facility],[address] [place] [address] Phosphate [Mass/Vol] 4.9 mg/dL Normal 2.7 - 4.9 [facility] Comment on above: Performed By: #### 2 82966 #### [facility],[address] [place] [address] 16488 RENAL FUNCTION PANEL Normal [facility] Comment on above: Result Comment: JESSICA L FUNCTION PANEL Performed By: #### 2 69939 #### [facility],[address] [place] [address] Sodium [Moles/Vol] 139 mmol/L Normal 136 - 145 [facility] Comment on above: Performed By: #### 2 57986 #### [facility],[address] [place] [address] URINALYSISon 05-05-2020 Bilirubin [Mass/Vol] Negative Normal NORMAL: NEGATIVE [facility] Comment on above: Performed By: #### 2 01435 #### [facility],[address] [place] [address]606 Blood Negative Normal NORMAL: NEGATIVE [facility] Comment on above: Performed By: #### 2 12538 #### [facility],[address] [place] [address] Clarity (U) clear Normal NORMAL: CLEAR [facility] Comment on above: Performed By: #### 2 11398 #### [facility],[address] [place] [address]43 Color (U) yellow Normal NORMAL: YELLOW [facility] Comment on above: Performed By: #### 2 85169 #### [facility],[address] [place] [address] Glucose [Mass/Vol] NORM Normal NORMAL: NORMAL [facility] Comment on above: Performed By: #### 2 73404 #### [facility],[address] [place] [address] 48062 Ketone Negative Normal NORMAL: NEGATIVE [facility] Comment on above: Performed By: #### 2 00838 #### [facility],[address] [place] [address] Microscopic NOT INDICATED Normal [facility] Comment on above: Performed By: #### 2 64675 #### [facility],[address] [place] [address] Nitrite Ql (U) Negative Normal NORMAL: NEGATIVE [facility] Comment on above: Performed By: #### 2 04411 #### [place] [address] pH (Bld) 6 Normal NORMAL: 5.0-8.0 [facility] Comment on above: Performed By: #### 2 62891 #### [place] [address] Protein (U) [Mass/Vol] Negative Normal JENN L: NEGATIVE [facility] Comment on above: Performed By: #### 2 07450 #### [place] [address] Sp Virgin 1.020 Normal NORMAL: 1.010-1.03 0 [facility] Comment on above: Performed By: #### 2 53505 #### [place] [address] Specimen type Nom (Spec) UNSPECIFIED Normal [facility] Comment on above: Performed By: #### 2 95812 #### [place] [address] Urobilinog NORM Normal NORMAL: NORMAL [facility] Comment on above: Performed By: #### 2 46602 #### [place] [address] WBC (Bld) [#/Vol] Negative Normal NORMAL: NEGATIVE [facility] Comment on above: Performed By: #### 2 60712 #### [place] [address] CBC + DIFFon 04-08-2020 Basophils (Bld) [#/Vol] 0.10 x10EE3/UL Normal 0. 00 - 0.10 [facility] Comment on above: Performed By: #### 2 64371 ####[place] [address] Basophils/100 WBC (Bld) 1.2 % Normal 0.0 - 2.[address] [facility] Comment on above: Performed By: #### 2 30640 ####[facility],[address] [place] [address] CBC + DIFF Normal [facility] Comment on above: Result Comment: CBC- COMPLETE BLOOD COUNT Performed By: #### 2 71565 ####[facility],[address] [place] [address] Eosinophils (Bld) [#/Vol] 0.40 x10EE3/UL Normal 0.00 - 0.50 [facility] Comment on above: Performed By: #### 2 92768 ####[facility],[address] [place], [place] [address] Eosinophils/100 WBC (Bld) 4.3 % Normal 0.0 - 7.0 [facility] Comment on above: Performed By: #### 2 42248 ####[facility],[address] [place] [address] Erythrocyte distribution width (RBC) [Ratio] 12.9 % Normal 12.0 - 15.6 [facility] Comment on above: Performed By: #### 2 21039 ####[facility],[address] [place] [address] Hematocrit (Bld) [Volume fraction] 38.7 % Low 40.0 - 52.0 [facility] Comment on above: Performed By: #### 2 97084 ####[facility],[address] [place], [place] [address] Hemoglobin (Bld) [Mass/Vol] 13.4 g/dL Normal 13.0 - 17.5 [facility] Comment on above: Performed By: #### 2 65604 ####[facility],[address] [place] [address] Lymphocytes (Bld) [#/Vol] 1.80 x10EE3/UL Normal 0.80 - 2.80 [facility] Comment on above: Performed By: #### 2 57959 ####[facility],[address] [place] [address]35[address] Lymphocytes/100 WBC (Bld) 21.9 % Normal 20.0 - 45.0 [facility] Comment on above: Performed By: #### 2 48816 ####[facility],[address] [place] [address] 94950 MANUAL DIFF N/A Normal [facility] Comment on above: Performed By: #### 2 88786 ####[facility],[address] [place] [address] 97487 MCH (RBC) [Entitic mass] 31 pg Normal 27 - 33 [facility] Comment on above: Performed By: #### 2 61538 ####[facility],[address] [place] [address] 40875 MCHC (RBC) [Mass/Vol] 35 X10 3 Normal 32 - 36 [facility] Comment on above: Performed By: #### 2 42496 ####[facility],[address] [place] [address] 40125 MCV (RBC) [Entitic vol] 88 fL Normal 81 - [address] [facility] Comment on above: Performed By: #### 2 47771 ####[facility],[address] [place] [address] 44920 Monocytes (Bld) [#/Vol] 1.20 x10EE3/UL High 0. 20 - 1.00 [facility] Comment on above: Performed By: #### 2 10339 ####[facility],[address] [place] [address] 90135 MONOS % 14.1 % High 0.0 - 10.0 [facility] Comment on above: Performed By: #### 2 00227 ####[facility],[address] [place] [address] 45029 Morphology Crispin (Bld) [Interp] N/A Normal [facility] Comment on above: Performed By: #### 2 48949 ####[facility],[address] [place] [address] 97112 Neutrophils (Bld) [#/Vol] 4.90 x10EE3/UL Normal 1.50 - 7.10 [facility] Comment on above: Performed By: #### 2 42076 ####[facility],[address] [place] [address] 63367 Neutrophils/100 WBC (Bld) 58.5 % Normal 46.0 - 76.0 [facility] Comment on above: Performed By: #### 2 05511 ####[facility],[address] [place] [address] 33901 Platelet mean volume (Bld) [Entitic vol] 7.4 fL Normal 6.4 - 10.5 [facility] Comment on above: Result Comment: AUTO MATED DIFFERENTIAL Performed By: #### 2 68384 ####[facility],[address] [place] [address] 53277 Platelets (Bld) [#/Vol] 268 x10EE3/UL Normal 150 - 450 [facility] Comment on above: Performed By: #### 2 65148 ####[facility],[address] [place] [address] 85943 RBC (Bld) [#/Vol] 4.41 x 10EE6/UL Low 4.50 - 6.00 [facility] Comment on above: Performed By: #### 2 49918 ####[facility],[address] [place] [address] 80163 WBC (Bld) [#/Vol] 8.3 x 10EE3/UL Normal 4.5 - 10.8 [facility] Comment on above: Performed By: #### 2 26522 ####[address] [address] CULTURE URINEon 04-08-2020 CULTURE URINE CULTURE URINE _URINE CULTURE_ M I C R O B I O L O G Y R E P O R T FINAL ------- Antimicrobial Susceptibility and Organism Identification Report -------- Specimen Number : [id number] Requested : 04/08/20 Specimen Source : CLEAN CATCH URINE Collected : 04/08/20 06:28 Arredondo of Isolation : MEME HUANG Received : 04/08/20 06:28 Requesting Physician : FLORECITA -- Patient/Specimen Tests and Comments Specimen Comments -------- -------- FINAL REPORT: NO GROWTH AT 48 HOURS -- Tech : Source : CLEAN CATCH URINE ID # : [id number] FINAL Report Date : / / : Collected : 04/08/20 06:28 04/10/20.1059.BKO. 04/09/20.1214.KLS. 04/10/20.1059.BKO.COMPLETE Normal [facility] Comment on above: Performed By: #### 2 10449 #### [facility],[address] [place], [place] [address] HEPATIC FUNCTION PANELon Albumin [Mass/Vol] 3.4 g/dL Normal 3.4 - 4.8 [facility] Comment on above: Performed By: #### 2 32318 ####[facility],[address] [place] [address] 79345 Performed By: #### 2 73220 ####[facility],[address] [place], [place] [address] ALK PHOS 65 U/L Normal 38 - 126 [facility] Comment on above: Performed By: #### 2 13114 ####[facility],[address] [place] [address] 68677 ALT/SGPT 16 U/L Normal 10 - 40 [facility] Comment on above: Performed By: #### 2 00435 ####[facility],[address] [place] [address] 74063 AST/SGOT 10 U/L Low 13 - 39 [facility] Comment on above: Performed By: #### 2 96777 ####[facility],[address] [place] [address] 66888 Bilirubin [Mass/Vol] 0.4 mg/dL Normal 0.0 - 1.5 [facility] Comment on above: Performed By: #### 2 42785 ####[facility],[address] [place] [address] 21873 Bilirubin.direct [Mass/Vol] 0.1 mg/dL Normal 0.0 - 0.1 [facility] Comment on above: Performed By: #### 2 94140 ####[facility],[address] [place] [address] 53304 HEPATIC FUNCTION PANEL Normal [facility] Comment on above: Result Comment: HEPA TIC FUNCTION PROFILE Performed By: #### 2 31016 ####[facility],[address] [place] [address] Protein [Mass/Vol] 5.4 g/dL Low 6.4 - 8.3 [facility] Comment on above: Performed By: #### 2 74496 ####[facility],[address] [place] [address] LITHIUMon 04-08-2020 Nokomis [Moles/Vol] 0.7 mmol/L Normal 0.6 - 1.2 [facility] Comment on above: Performed By: #### 2 84780 ####[facility],[address] [place], [place] [address] RENAL FUNCTION PANELon 04-08 B/C RATIO 11 ratio Normal 0 - 30 [facility] Comment on above: Performed By: #### 2 37456 ####[facility],[address] [place] [address] 88345 Calcium [Mass/Vol] 9.5 mg/dL Normal 8.6 - 10.2 [facility] Comment on above: Performed By: #### 2 08393 ####[facility],[address] [place] [address] 42471 Chloride [Moles/Vol] 105 mmol/L Normal 98 - 107 [facility] Comment on above: Performed By: #### 2 66522 ####[facility],[address] [place] [address] 80366 CO2 [Moles/Vol] 25.4 mmol/L Normal 21.0 - 31.0 [facility] Comment on above: Performed By: #### 2 90073 ####[facility],[address] [place] [address] 00743 Creatinine [Mass/Vol] 2.1 mg/dL High 0.7 - 1.3 [facility] Comment on above: Performed By: #### 2 37695 ####[facility],[address] [place] [address] 34145 Glucose [Mass/Vol] 105 mg/dL Normal 74 - 106 [facility] Comment on above: Performed By: #### 2 12979 ####[facility],[address] [place] [address] 77985 Phosphate [Mass/Vol] 5.2 mg/dL High 2.7 - 4.9 [facility] Comment on above: Performed By: #### 2 35416 ####[facility],[address] [place] [address] 27125 Potassium [Moles/Vol] 3.8 mmol/L Normal 3.5 - 5.1 [facility] Comment on above: Performed By: #### 2 00963 ####[facility],[address] [place] [address] 17329 RENAL FUNCTION PANEL Normal [facility] Comment on above: Result Comment: JESSICA L FUNCTION PANEL Performed By: #### 2 78417 ####[facility],[address] [place] [address] 47579 Sodium [Moles/Vol] 139 mmol/L Normal 136 - 145 [facility] Comment on above: Performed By: #### 2 47732 ####[facility],[address] [place] [address] 17858 Urea nitrogen [Mass/Vol] 23 mg/dL High 6 - 20 [facility] Comment on above: Performed By: #### 2 33268 ####[facility],[address] [place] [address] 08405 URINALYSISon 04-08-2020 Bilirubin [Mass/Vol] Negative Normal NORMAL: NEGATIVE [facility] Comment on above: Performed By: #### 2 54911 #### [facility],[address] [place] [address] 44509 Blood Negative Normal NORMAL: NEGATIVE [facility] Comment on above: Performed By: #### 2 68254 #### [facility],[address] [place] [address] 27372 Clarity (U) clear Normal NORMAL: CLEAR [facility] Comment on above: Performed By: #### 2 94350 #### [facility],[address] [place] [address] 46699 Color (U) p.yel Normal NORMAL: YELLOW [facility] Comment on above: Performed By: #### 2 71514 #### [facility],[address] [place] [address] 45522 Glucose [Mass/Vol] NORM Normal NORMAL: NORMAL [facility] Comment on above: Performed By: #### 2 70736 #### [facility],[address] [place] [address] 80599 Ketone Negative Normal NORMAL: NEGATIVE [facility] Comment on above: Performed By: #### 2 49727 #### [facility],[address] [place] [address] 46657 Microscopic NOT INDICATED Normal [facility] Comment on above: Performed By: #### 2 74271 #### [facility],[address] [place] [address] 85405 Nitrite Ql (U) Negative Normal NORMAL: NEGATIVE [facility] Comment on above: Performed By: #### 2 92082 #### [facility],[address] [place] [address] 05136 pH (Bld) 6 Normal NORMAL: 5.0-8.0 [facility] Comment on above: Performed By: #### 2 40808 #### [facility],[address] [place] [address] 60405 Protein (U) [Mass/Vol] Negative Normal JENN L: NEGATIVE [facility] Comment on above: Performed By: #### 2 77653 #### [facility],[address] [place] [address] 37244 Sp Virgin 1.020 Normal NORMAL: 1.010-1.03 0 [facility] Comment on above: Performed By: #### 2 66184 #### [facility],[address] [place] [address] Specimen type Nom (Spec) Clean catch Normal [facility] Comment on above: Performed By: #### 2 25782 #### [facility],[address] [place] [address] 71025 Urobilinog NORM Normal NORMAL: NORMAL [facility] Comment on above: Performed By: #### 2 90118 #### [facility],[address] [place] [address] 30669 WBC (Bld) [#/Vol] Negative Normal NORMAL: NEGATIVE [facility] Comment on above: Performed By: #### 2 35466 #### [facility],[address] [place] [address] 38626 URINE CREATININE AND PROTEIN RATIOon 04-08-2020 CREATININE UR 146.3 mg/dl Normal [facility] Comment on above: Performed By: #### 2 98603 ####[facility],[address] [place] [address] 57795 PC RATIO 0.06 mg/dL Normal 0.00 - 10.00 [facility] Comment on above: Performed By: #### 2 01787 ####[facility],[address] [place] [address] 62739 Protein (U) [Mass/Vol] 9.00 mg/dL Normal 0.00 - 10.00 [facility] Comment on above: Performed By: #### 2 23159 ####[facility],[address] [place] [address] 52740 HGB A1C [CCL]on 03-18-2020 HbA1c (Bld) [Mass fraction] 117 mg/dL Normal [facility] Comment on above: Result Comment: eAG: (Estimated average glucose) is a calculated value from HgbA1c and is technology sales representative of the average blood glucose level in the last 2-3 month period. [facility] [address] [place] [address] Dre Gilliland III, M.D. [id number] Performed By: #### 2 55486 ####[facility],[address] [place], [place] [address] HbA1c (Bld) [Mass fraction] 5.7 % High 4.3-5.6 [facility] Comment on above: Result Comment: Amer [place] Diabetes Association guidelines indicate that patients with HgbA1c in the range 5.7-6.4% are at increased risk for development of diabetes, and intervention by lifestyle modification may be beneficial. HgbA1c greater or equal to 6.5% is considered diagnostic of diabetes. Performed By: #### 2 83151 ####[facility],[address] [place] [address] 65803 Hemoglobin A1con 03-18-2020 HbA1c (Bld) [Mass fraction] 5.7 % High 4.3-5.6 [facility] Comment on above: Performed By: #### H BA1C #### [facility] Routine Lab [address] [address] HbA1c (Bld) [Mass fraction] 117 mg/dL Normal [facility] Comment on above: Performed By: #### H BA1C #### [facility] Routine Lab [address] [address] LIPID PROFILEon 03-17-2020 Cholesterol [Mass/Vol] 133 mg/dL Normal 0 - 200 [facility] Comment on above: Performed By: #### 2 73289 ####[facility],[address] [place] [address] 22733 Cholesterol in HDL [Mass/Vol] 29 mg/dL Low 40 - 60 [facility] Comment on above: Performed By: #### 2 84842 ####[facility],[address] [place] [address] 17725 Cholesterol in LDL [Mass/Vol] 59 mg/dL Normal 0 - 129 [facility] Comment on above: Performed By: #### 2 43678 ####[facility],[address] [place] [address] 79499 Cholesterol.total/Choles terol in HDL [Mass ratio] 4.6 {ratio} Normal 0.0 - 5.0 [facility] Comment on above: Performed By: #### 2 14434 ####[facility],[address] [place] [address] 82756 Lipid 1996 panel Normal [facility] Comment on above: Result Comment: LIPI D PROFILE Performed By: #### 2 79159 ####[facility],[address] [place] [address] 77065 Triglyceride [Mass/Vol] 224 mg/dL High 0 - [address] [facility] Comment on above: Performed By: #### 2 08168 ####[facility],[address] [place] [address] 23931 TSHon 03-17-2020 TSH Qn 0.99 uIU/ml Normal 0.34 - 5.60 [facility] Comment on above: Performed By: #### 2 90268 ####[facility],[address] [place] [address] 98304 URINE CREATININE AND PROTEIN RATIOon 03-11-2020 CREATININE UR 65.8 mg/dl Normal [facility] Comment on above: Performed By: #### 2 38936 ####[facility],[address] [place] [address] 54471 PC RATIO 0.06 mg/dL Normal 0.00 - 10.00 [facility] Comment on above: Performed By: #### 2 62709 ####[facility],[address] [place] [address] 10191 Protein (U) [Mass/Vol] mg/dL Normal 0.00 - 10.00 [facility] Comment on above: Performed By: #### 2 29710 ####[facility],[address] [place] [address] 51096 CBC + DIFFon 03-10-2020 Basophils (Bld) [#/Vol] 0.10 x10EE3/UL Normal 0. 00 - 0.10 [facility] Comment on above: Performed By: #### 2 73347 #### [facility],[address] [place] [address] 00217 Basophils/100 WBC (Bld) 1.3 % Normal 0.0 - 2.[address] [facility] Comment on above: Performed By: #### 2 04668 #### [facility],[address] [place] [address] CBC + DIFF Normal [facility] Comment on above: Result Comment: CBC- COMPLETE BLOOD COUNT Performed By: #### 2 22069 #### [facility],[address] [place] [address] 27148 Eosinophils (Bld) [#/Vol] 0.40 x10EE3/UL Normal 0.00 - 0.50 [facility] Comment on above: Performed By: #### 2 38405 #### [facility],[address] [place] [address] 30444 Eosinophils/100 WBC (Bld) 5.7 % Normal 0.0 - 7.0 [facility] Comment on above: Performed By: #### 2 38277 #### [facility],[address] [place] [address] 21880 Erythrocyte distribution width (RBC) [Ratio] 13.3 % Normal 12.0 - 15.6 [facility] Comment on above: Performed By: #### 2 16408 #### [facility],[address] [place] [address] 36448 Hematocrit (Bld) [Volume fraction] 40.4 % Normal 40.0 - 52.0 [facility] Comment on above: Performed By: #### 2 33018 #### [facility],[address] [place] [address] Hemoglobin (Bld) [Mass/Vol] 13.8 g/dL Normal 13.0 - 17.5 [facility] Comment on above: Performed By: #### 2 12880 #### [facility],[address] [place] [address] Lymphocytes (Bld) [#/Vol] 1.30 x10EE3/UL Normal 0.80 - 2.80 [facility] Comment on above: Performed By: #### 2 03050 #### [facility],[address] [place] [address] Lymphocytes/100 WBC (Bld) 20.1 % Normal 20.0 - 45.0 [facility] Comment on above: Performed By: #### 2 82706 #### [facility],[address] [place] [address] MANUAL DIFF N/A Normal [facility] Comment on above: Performed By: #### 2 65046 #### [facility],[address] [place], [place] [id number] MCH (RBC) [Entitic mass] 30 pg Normal 27 - 33 [facility] Comment on above: Performed By: #### 2 29721 #### [facility],[address] [place], [place] [address] MCHC (RBC) [Mass/Vol] 34 X10 3 Normal 32 - 36 [facility] Comment on above: Performed By: #### 2 22188 #### [facility],[address] [place] [address] 00282 MCV (RBC) [Entitic vol] 88 fL Normal 81 - [address] [facility] Comment on above: Performed By: #### 2 28936 #### [facility],[address] [place] [address] 51001 Monocytes (Bld) [#/Vol] 0.90 x10EE3/UL Normal 0. 20 - 1.00 [facility] Comment on above: Performed By: #### 2 18871 #### [facility],[address] [place] [address] 29147 MONOS % 13.7 % High 0.0 - 10.0 [facility] Comment on above: Performed By: #### 2 51053 #### [facility],[address] [place] [address] 94761 Morphology Crispin (Bld) [Interp] N/A Normal [facility] Comment on above: Performed By: #### 2 29750 #### [address] [address] Neutrophils (Bld) [#/Vol] 3.80 x10EE3/UL Normal 1.50 - 7.10 [facility] Comment on above: Performed By: #### 2 50333 #### [facility],[address] [place] [address] 13134 Neutrophils/100 WBC (Bld) 59.2 % Normal 46.0 - 76.0 [facility] Comment on above: Performed By: #### 2 07995 #### [facility],[address] [place] [address] 96055 Platelet mean volume (Bld) [Entitic vol] 7.8 fL Normal 6.4 - 10.5 [facility] Comment on above: Result Comment: AUTO MATED DIFFERENTIAL Performed By: #### 2 87607 #### [facility],[address] [place] [address] 41882 Platelets (Bld) [#/Vol] 291 x10EE3/UL Normal 150 - 450 [facility] Comment on above: Performed By: #### 2 45304 #### [facility],[address] [place] [address] 32695 RBC (Bld) [#/Vol] 4.57 x 10EE6/UL Normal 4.50 - 6.00 [facility] Comment on above: Performed By: #### 2 44657 #### [facility],[address] [place], [place] [address] WBC (Bld) [#/Vol] 6.4 x 10EE3/UL Normal 4.5 - 10.8 [facility] Comment on above: Performed By: #### 2 14744 #### [facility],[address] [place], [place] [address] LITHIUMon 03-10-2020 Nokomis [Moles/Vol] 0.8 mmol/L Normal 0.6 - 1.2 [facility] Comment on above: Performed By: #### 2 80060 #### [facility],[address] [place] [address] RENAL FUNCTION PANEL WITH eG FRon 03-10-2020 Age - Reported 54 years Normal [facility] Comment on above: Performed By: #### 2 32495 ####[facility],[address] [place], [place] [address] Albumin [Mass/Vol] 3.5 g/dL Normal 3.4 - 4.8 [facility] Comment on above: Performed By: #### 2 46772 ####[facility],[address] [place], [place] [address] B/C RATIO 8 ratio Normal 0 - 30 [facility] Comment on above: Performed By: #### 2 63313 ####[facility],[address] [place], [place] [address] Calcium [Mass/Vol] 9.4 mg/dL Normal 8.6 - 10.2 [facility] Comment on above: Performed By: #### 2 15291 ####[facility],[address] [place], [place] [address] Chloride [Moles/Vol] 106 mmol/L Normal 98 - 107 [facility] Comment on above: Performed By: #### 2 60517 ####[facility],[address],[place] [address] CO2 [Moles/Vol] 26.1 mmol/L Normal 21.0 - 31.0 [facility] Comment on above: Performed By: #### 2 08476 ####[facility],[address] [place] [address] 80552 Creatinine [Mass/Vol] 2.5 mg/dL High 0.7 - 1.3 [facility] Comment on above: Performed By: #### 2 42721 ####[facility],[address] [place] [address] 91376 GFR/1.73 sq M predicted among non-blacks MDRD (S/P/Bld) [Vol rate/Area] 33 ML/MINUTE Low 60 - 999 [facility] Comment on above: Result Comment: ACCO RDING TO THE NATIONAL KIDNEY DISEASE EDUCATION PROGRAM(NKDE), A NORMAL eGFR IS A VALUE GREATER THAN OR EQUAL TO 60 ML/MIN/1.73 SQ METERS. CHRONIC KIDNEY DISEASE: <60mL/MIN/1.73 SQ METERS KIDNEY FAILURE: <15mL/MIN/1.73 SQ METERS THIS TEST SHOULD ONLY BE USED FOR PATIENTS 18 YEARS OF AGE AND OLDER. Performed By: #### 2 55412 ####[facility],[address] [place] [address] 72125 GFR/1.73 sq M predicted among non-blacks MDRD (S/P/Bld) [Vol rate/Area] 27 ML/MINUTE Low 60 - 999 [facility] Comment on above: Performed By: #### 2 34218 ####[facility],[address] [place] [address] 45945 Glucose [Mass/Vol] 114 mg/dL High 74 - 106 [facility] Comment on above: Performed By: #### 2 36330 ####[facility],[address] [place] [address] 38514 Phosphate [Mass/Vol] 4.6 mg/dL Normal 2.7 - 4.9 [facility] Comment on above: Performed By: #### 2 95644 ####[facility],[address] [place] [address] 90628 Potassium [Moles/Vol] 3.9 mmol/L Normal 3.5 - 5.1 [facility] Comment on above: Performed By: #### 2 71766 ####[facility],[address] [place] [address] 71530 RENAL FUNCTION PANEL WITH eGFR Normal [facility] Comment on above: Result Comment: JESSICA L FUNCTION PANEL Performed By: #### 2 46005 ####[facility],[address] [place] [address] 60503 Sodium [Moles/Vol] 139 mmol/L Normal 136 - 145 [facility] Comment on above: Performed By: #### 2 09584 ####[facility],[address] [place] [address] 48155 Urea nitrogen [Mass/Vol] 21 mg/dL High 6 - 20 [facility] Comment on above: Performed By: #### 2 32859 ####[facility],[address] [place] [address] 06677 CBC + DIFFon 02-04-2020 Basophils (Bld) [#/Vol] 0.10 x10EE3/UL Normal 0. 00 - 0.10 [facility] Comment on above: Performed By: #### 2 51903 #### [facility],[address] [place] [address] 56976 Basophils/100 WBC (Bld) 1.3 % Normal 0.0 - 2.[address] [facility] Comment on above: Performed By: #### 2 73935 #### [facility],[address] [place] [address] 06370 CBC + DIFF Normal [facility] Comment on above: Result Comment: CBC- COMPLETE BLOOD COUNT Performed By: #### 2 45530 #### [facility],[address] [place] [address] 04198 Eosinophils (Bld) [#/Vol] 0.40 x10EE3/UL Normal 0.00 - 0.50 [facility] Comment on above: Performed By: #### 2 84898 #### [facility],[address] [place] [address] 08884 Eosinophils/100 WBC (Bld) 5.6 % Normal 0.0 - 7.0 [facility] Comment on above: Performed By: #### 2 95487 #### [facility],[address] [place] [address] Erythrocyte distribution width (RBC) [Ratio] 13.2 % Normal 12.0 - 15.6 [facility] Comment on above: Performed By: #### 2 21908 #### [facility],[address] [place] [address] Hematocrit (Bld) [Volume fraction] 38.7 % Low 40.0 - 52.0 [facility] Comment on above: Performed By: #### 2 59432 #### [facility],[address] [place], [place] [address] Hemoglobin (Bld) [Mass/Vol] 13.2 g/dL Normal 13.0 - 17.5 [facility] Comment on above: Performed By: #### 2 04639 #### [facility],[address] [place] [address] 59948 Lymphocytes (Bld) [#/Vol] 1.40 x10EE3/UL Normal 0.80 - 2.80 [facility] Comment on above: Performed By: #### 2 12352 #### [facility],[address] [place] [address] 60902 Lymphocytes/100 WBC (Bld) 18.1 % Low 20.0 - 45.0 [facility] Comment on above: Performed By: #### 2 70125 #### [facility],[address] [place], [place] [address] MANUAL DIFF N/A Normal [facility] Comment on above: Performed By: #### 2 21722 #### [facility],[address] [place] [address] 10656 MCH (RBC) [Entitic mass] 30 pg Normal 27 - 33 [facility] Comment on above: Performed By: #### 2 32178 #### [facility],[address] [place] [address] 77618 MCHC (RBC) [Mass/Vol] 34 X10 3 Normal 32 - 36 [facility] Comment on above: Performed By: #### 2 63350 #### [facility],[address] [place] [address] 57655 MCV (RBC) [Entitic vol] 88 fL Normal 81 - [address] [facility] Comment on above: Performed By: #### 2 84738 #### [facility],[address] [place] [address] 27246 Monocytes (Bld) [#/Vol] 1.10 x10EE3/UL High 0. 20 - 1.00 [facility] Comment on above: Performed By: #### 2 59066 #### [facility],[address] [place] [address] 67185 MONOS % 13.6 % High 0.0 - 10.0 [facility] Comment on above: Performed By: #### 2 05019 #### [facility],[address] [place] [address] 83905 Morphology Crispin (Bld) [Interp] N/A Normal [facility] Comment on above: Performed By: #### 2 09547 #### [facility],[address] [place] [address] 10497 Neutrophils (Bld) [#/Vol] 4.80 x10EE3/UL Normal 1.50 - 7.10 [facility] Comment on above: Performed By: #### 2 68388 #### [facility],[address] [place] [address] 85207 Neutrophils/100 WBC (Bld) 61.4 % Normal 46.0 - 76.0 [facility] Comment on above: Performed By: #### 2 42787 #### [facility],[address] [place] [address] 86475 Platelet mean volume (Bld) [Entitic vol] 7.7 fL Normal 6.4 - 10.5 [facility] Comment on above: Result Comment: AUTO MATED DIFFERENTIAL Performed By: #### 2 52277 #### [facility],[address] [place] [address] 97068 Platelets (Bld) [#/Vol] 298 x10EE3/UL Normal 150 - 450 [facility] Comment on above: Performed By: #### 2 39465 #### [facility],[address] [place], [place] [address] RBC (Bld) [#/Vol] 4.40 x 10EE6/UL Low 4.50 - 6.00 [facility] Comment on above: Performed By: #### 2 23987 #### [facility],[address] [place], [place] [address] WBC (Bld) [#/Vol] 7.8 x 10EE3/UL Normal 4.5 - 10.8 [facility] Comment on above: Performed By: #### 2 72095 #### [facility],[address] [place], [place] [address] CULTURE URINEon 02-04-2020 CULTURE URINE CULTURE URINE _URINE CULTURE_ M I C R O B I O L O G Y R E P O R T FINAL ------- Antimicrobial Susceptibility and Organism Identification Report -------- Specimen Number : [id number] Requested : 02/04/20 Specimen Source : URINE Collected : 02/04/20 02:50 [employer] : MEME HUANG Received : 02/04/20 02:50 Requesting Physician : FLORECITA -- Patient/Specimen Tests and Comments Specimen Comments -------- -------- FINAL REPORT: NO GROWTH AT 48 HOURS -- Tech : Source : URINE ID # : [id number] FINAL Report Date : / / : Collected : 02/04/20 02:50 02/06/20.1208.KLS. 02/05/20.0910.JLN. 02/06/20.1208.KLS.COMPLETE Normal [facility] Comment on above: Performed By: #### 2 85801 #### [facility],[address] [place] [address] RENAL FUNCTION PANEL WITH [facility] 02-04-2020 Age - Reported 54 years Normal [facility] Comment on above: Performed By: #### 2 98540 #### [facility],[address] [place] [address] 78078 Albumin [Mass/Vol] 3.5 g/dL Normal 3.4 - 4.8 [facility] Comment on above: Performed By: #### 2 62021 #### [facility],[address] [place] [address] 34188 B/C RATIO 9 ratio Normal 0 - 30 [facility] Comment on above: Performed By: #### 2 83816 #### [facility],[address] [place] [address] 57805 Calcium [Mass/Vol] 9.4 mg/dL Normal 8.6 - 10.2 [facility] Comment on above: Performed By: #### 2 38637 #### [facility],[address] [place] [address] 07772 Chloride [Moles/Vol] 107 mmol/L Normal 98 - 107 [facility] Comment on above: Performed By: #### 2 99727 #### [facility],[address] [place] [address] 29082 CO2 [Moles/Vol] 25.6 mmol/L Normal 21.0 - 31.0 [facility] Comment on above: Performed By: #### 2 32416 #### [facility],[address] [place] [address] 63618 Creatinine [Mass/Vol] 2.4 mg/dL High 0.7 - 1.3 [facility] Comment on above: Performed By: #### 2 52930 #### [facility],[address] [place] [address] 03166 GFR/1.73 sq M predicted among non-blacks MDRD (S/P/Bld) [Vol rate/Area] 28 ML/MINUTE Low 60 - 999 [facility] Comment on above: Performed By: #### 2 07847 #### [facility],[address] [place] [address] 63634 GFR/1.73 sq M predicted among non-blacks MDRD (S/P/Bld) [Vol rate/Area] 34 ML/MINUTE Low 60 - 999 [facility] Comment on above: Result Comment: ACCO RDING TO THE NATIONAL KIDNEY DISEASE EDUCATION PROGRAM(NKDE), A NORMAL eGFR IS A VALUE GREATER THAN OR EQUAL TO 60 ML/MIN/1.73 SQ METERS. CHRONIC KIDNEY DISEASE: <60mL/MIN/1.73 SQ METERS KIDNEY FAILURE: <15mL/MIN/1.73 SQ METERS THIS TEST SHOULD ONLY BE USED FOR PATIENTS 18 YEARS OF AGE AND OLDER. Performed By: #### 2 70195 #### [address] [address] Glucose [Mass/Vol] 114 mg/dL High 74 - 106 [facility] Comment on above: Performed By: #### 2 94548 #### [address] [address] Phosphate [Mass/Vol] 4.5 mg/dL Normal 2.7 - 4.9 [facility] Comment on above: Performed By: #### 2 42595 #### [address] [address] Potassium [Moles/Vol] 3.8 mmol/L Normal 3.5 - 5.1 [facility] Comment on above: Performed By: #### 2 33111 #### [address] [address] RENAL FUNCTION PANEL WITH eGFR Normal [facility] Comment on above: Result Comment: JESSICA L FUNCTION PANEL Performed By: #### 2 04598 #### [address] [address] Sodium [Moles/Vol] 139 mmol/L Normal 136 - 145 [facility] Comment on above: Performed By: #### 2 23039 #### [address] [address] Urea nitrogen [Mass/Vol] 22 mg/dL High 6 - 20 [facility] Comment on above: Performed By: #### 2 27835 #### [facility],[address] [place] [address] 99576 URINALYSISon 02-04-2020 Amorphous NONE Normal [facility] Comment on above: Performed By: #### 2 22162 #### [facility],[address] [place] [address] 69041 Bacteria LM.HPF (Urine sed) [#/Area] NONE Normal [facility] Comment on above: Performed By: #### 2 37057 #### [facility],[address] [place] [address] 58489 Bilirubin [Mass/Vol] Negative Normal NORMAL: NEGATIVE [facility] Comment on above: Performed By: #### 2 87522 #### [facility],[address] [place], [place] [address] Blood Negative Normal NORMAL: NEGATIVE [facility] Comment on above: Performed By: #### 2 06196 #### [facility],[address] [place] [address] 58745 Casts LM.LPF (Urine sed) [#/Area] NONE Normal [facility] Comment on above: Performed By: #### 2 13845 #### [facility],[address] [place], [place] [address] Clarity (U) clear Normal NORMAL: CLEAR [facility] Comment on above: Performed By: #### 2 32957 #### [facility],[address] [place] [address] 16955 Color (U) yellow Normal NORMAL: YELLOW [facility] Comment on above: Performed By: #### 2 74082 #### [facility],[address] [place] [address] 56251 Crystals LM Nom (Urine sed) NONE Normal [facility] Comment on above: Performed By: #### 2 38345 #### [facility],[address] [place], [place] [address] Epi Cells NONE Normal [facility] Comment on above: Performed By: #### 2 96543 #### [facility],[address] [place] [address] 71838 Glucose [Mass/Vol] NORM Normal NORMAL: NORMAL [facility] Comment on above: Performed By: #### 2 30473 #### [facility],[address] [place] [address] 78108 Ketone Negative Normal NORMAL: NEGATIVE [facility] Comment on above: Performed By: #### 2 83759 #### [facility],[address] [place] [address] 60862 Microscopic SEE BELOW Normal [facility] Comment on above: Result Comment: MICR OSCOPIC Performed By: #### 2 90842 #### [facility],[address] [place] [address] 46479 Mucous NONE Normal [facility] Comment on above: Performed By: #### 2 35883 #### [facility],[address] [place] [address] 80962 Nitrite Ql (U) Negative Normal NORMAL: NEGATIVE [facility] Comment on above: Performed By: #### 2 90662 #### [facility],[address] [place] [address] 70383 pH (Bld) 6 Normal NORMAL: 5.0-8.0 [facility] Comment on above: Performed By: #### 2 90337 #### [facility],[address] [place] [address] 91584 Protein (U) [Mass/Vol] Negative Normal JENN L: NEGATIVE [facility] Comment on above: Performed By: #### 2 24737 #### [facility],[address] [place] [address] 20898 Rbc NONE Normal 0-3/hpf [facility] Comment on above: Performed By: #### 2 11918 #### [facility],[address] [address] [place] 1.015 Normal NORMAL: 1.010-1.03 0 [facility] Comment on above: Performed By: #### 2 83553 #### [facility],[address] [place] [address] Specimen type Nom (Spec) Clean catch Normal [facility] Comment on above: Performed By: #### 2 00843 #### [facility],[address] [place] [address] Urobilinog NORM Normal NORMAL: NORMAL [facility] Comment on above: Performed By: #### 2 97776 #### [facility],[address] [place] [address] Wbc 1-5 Normal 0-5/hpf [facility] Comment on above: Performed By: #### 2 97503 #### [facility],[address] [place] [address] WBC (Bld) [#/Vol] 25 Abnormal NORMAL: NEGATIVE [facility] Comment on above: Performed By: #### 2 65896 #### [facility],[address] [place] [address] Yeast LM Ql (Urine sed) NONE Normal [facility] Comment on above: Performed By: #### 2 24108 #### [facility],[address] [place] [address] URINE CREATININE AND PROTEIN RATIOon 02-04-2020 CREATININE UR 143.6 mg/dl Normal [facility] Comment on above: Performed By: #### 2 26518 #### [facility],[address] [place] [address] PC RATIO 0.05 mg/dL Normal 0.00 - 10.00 [facility] Comment on above: Performed By: #### 2 56897 #### [facility],[address] [place] [address] Protein (U) [Mass/Vol] 7.00 mg/dL Normal 0.00 - 10.00 [facility] Comment on above: Performed By: #### 2 49397 #### [facility],[address] [place] [address] 98040 ALBUMIN PLASMAon 01-07-2020 Albumin [Mass/Vol] 3.7 g/dL Normal 3.4 - 4.8 [facility] Comment on above: Performed By: #### 2 11945 #### [facility],[address] [place] [address] 80705 BMP with eGFRon 01-07-2020 Age - Reported 54 years Normal [facility] Comment on above: Performed By: #### 2 93095 #### [facility],[address] [place] [address] 57090 Anion gap [Moles/Vol] 13 mmol/L Normal 10 - 20 [facility] Comment on above: Performed By: #### 2 21330 #### [facility],[address] [place] [address] 53831 Calcium [Mass/Vol] 9.3 mg/dL Normal 8.6 - 10.2 [facility] Comment on above: Performed By: #### 2 21540 #### [facility],[address] [place] [address] 68536 Chloride [Moles/Vol] 108 mmol/L High 98 - 107 [facility] Comment on above: Performed By: #### 2 74085 #### [facility],[address] [place] [address] 69922 CO2 [Moles/Vol] 26.1 mmol/L Normal 21.0 - 31.0 [facility] Comment on above: Performed By: #### 2 56837 #### [facility],[address] [place] [address] 47124 Creatinine [Mass/Vol] 2.0 mg/dL High 0.7 - 1.3 [facility] Comment on above: Performed By: #### 2 51880 #### [facility],[address] [place] [address] 67175 GFR/1.73 sq M predicted among non-blacks MDRD (S/P/Bld) [Vol rate/Area] Normal [facility] Comment on above: Result Comment: BASI C METABOLIC PANEL Performed By: #### 2 99193 #### [facility],[address] [place] [address] 29536 GFR/1.73 sq M predicted among non-blacks MDRD (S/P/Bld) [Vol rate/Area] 42 ML/MINUTE Low 60 - 999 [facility] Comment on above: Result Comment: ACCO RDING TO THE NATIONAL KIDNEY DISEASE EDUCATION PROGRAM(NKDE), A NORMAL eGFR IS A VALUE GREATER THAN OR EQUAL TO 60 ML/MIN/1.73 SQ METERS. CHRONIC KIDNEY DISEASE: <60mL/MIN/1.73 SQ METERS KIDNEY FAILURE: <15mL/MIN/1.73 SQ METERS THIS TEST SHOULD ONLY BE USED FOR PATIENTS 18 YEARS OF AGE AND OLDER. Performed By: #### 2 97547 #### [facility],[address] [place] [address] 58570 GFR/1.73 sq M predicted among non-blacks MDRD (S/P/Bld) [Vol rate/Area] 35 ML/MINUTE Low 60 - 999 [facility] Comment on above: Performed By: #### 2 24334 #### [facility],[address] [place] [address] 95500 Glucose [Mass/Vol] 99 mg/dL Normal 74 - 106 [facility] Comment on above: Performed By: #### 2 64787 #### [facility],[address] [place] [address] 97203 Potassium [Moles/Vol] 3.8 mmol/L Normal 3.5 - 5.1 [facility] Comment on above: Performed By: #### 2 94298 #### [facility],[address] [place] [address] 04600 Sodium [Moles/Vol] 143 mmol/L Normal 136 - 145 [facility] Comment on above: Performed By: #### 2 89233 #### [facility],[address] [place] [address] 85125 Urea nitrogen [Mass/Vol] 22 mg/dL High 6 - 20 [facility] Comment on above: Performed By: #### 2 89734 #### [facility],[address] [place] [address] 96367 CBC + DIFFon 01-07-2020 Basophils (Bld) [#/Vol] 0.10 x10EE3/UL Normal 0. 00 - 0.10 [facility] Comment on above: Performed By: #### 2 07146 #### [facility],[address] [place] [address] 90001 Basophils/100 WBC (Bld) 1.0 % Normal 0.0 - 2.[address] [facility] Comment on above: Performed By: #### 2 27204 #### [facility],[address] [place] [address] CBC + DIFF Normal [facility] Comment on above: Result Comment: CBC- COMPLETE BLOOD COUNT Performed By: #### 2 36331 #### [facility],[address] [place], [place] [address] Eosinophils (Bld) [#/Vol] 0.30 x10EE3/UL Normal 0.00 - 0.50 [facility] Comment on above: Performed By: #### 2 81257 #### [facility],[address] [place] [address] 63485 Eosinophils/100 WBC (Bld) 3.3 % Normal 0.0 - 7.0 [facility] Comment on above: Performed By: #### 2 77551 #### [facility],[address] [place] [address] 15798 Erythrocyte distribution width (RBC) [Ratio] 13.1 % Normal 12.0 - 15.6 [facility] Comment on above: Performed By: #### 2 27814 #### [facility],[address] [place] [address] 04975 Hematocrit (Bld) [Volume fraction] 39.0 % Low 40.0 - 52.0 [facility] Comment on above: Performed By: #### 2 51112 #### [facility],[address] [place] [address] 85575 Hemoglobin (Bld) [Mass/Vol] 13.4 g/dL Normal 13.0 - 17.5 [facility] Comment on above: Performed By: #### 2 88115 #### [facility],[address] [place] [address] 68200 Lymphocytes (Bld) [#/Vol] 1.90 x10EE3/UL Normal 0.80 - 2.80 [facility] Comment on above: Performed By: #### 2 87820 #### [facility],[address] [place] [address] 73751 Lymphocytes/100 WBC (Bld) 20.6 % Normal 20.0 - 45.0 [facility] Comment on above: Performed By: #### 2 08041 #### [facility],[address] [place] [address] 06405 MANUAL DIFF N/A Normal [facility] Comment on above: Performed By: #### 2 44769 #### [facility],[address] [place] [address] 08333 MCH (RBC) [Entitic mass] 30 pg Normal 27 - 33 [facility] Comment on above: Performed By: #### 2 31570 #### [facility],[address] [place] [address] 13373 MCHC (RBC) [Mass/Vol] 34 X10 3 Normal 32 - 36 [facility] Comment on above: Performed By: #### 2 62429 #### [facility],[address] [place] [address] 64177 MCV (RBC) [Entitic vol] 88 fL Normal 81 - [address] [facility] Comment on above: Performed By: #### 2 33588 #### [facility],[address] [place] [address] 09028 Monocytes (Bld) [#/Vol] 0.90 x10EE3/UL Normal 0. 20 - 1.00 [facility] Comment on above: Performed By: #### 2 28232 #### [facility],[address] [place] [address] 44312 MONOS % 10.0 % Normal 0.0 - 10.0 [facility] Comment on above: Performed By: #### 2 50307 #### [facility],[address] [place], [place] [address] Morphology Crispin (Bld) [Interp] N/A Normal [facility] Comment on above: Performed By: #### 2 48484 #### [address] [address] Neutrophils (Bld) [#/Vol] 5.90 x10EE3/UL Normal 1.50 - 7.10 [facility] Comment on above: Performed By: #### 2 29617 #### [facility],[address] [place], [place] [address] Neutrophils/100 WBC (Bld) 65.1 % Normal 46.0 - 76.0 [facility] Comment on above: Performed By: #### 2 14941 #### [facility],[address] [place] [address] Platelet mean volume (Bld) [Entitic vol] 7.7 fL Normal 6.4 - 10.5 [facility] Comment on above: Result Comment: AUTO MATED DIFFERENTIAL Performed By: #### 2 92586 #### [address] [address] Platelets (Bld) [#/Vol] 260 x10EE3/UL Normal 150 - 450 [facility] Comment on above: Performed By: #### 2 15056 #### [facility],[address] [place] [address] 14116 RBC (Bld) [#/Vol] 4.41 x 10EE6/UL Low 4.50 - 6.00 [facility] Comment on above: Performed By: #### 2 06226 #### [facility],[address] [place] [address] 31823 WBC (Bld) [#/Vol] 9.1 x 10EE3/UL Normal 4.5 - 10.8 [facility] Comment on above: Performed By: #### 2 10158 #### [facility],[address] [place], [place] [id number] CULTURE URINEon 01-07-2020 CULTURE URINE CULTURE URINE _URINE CULTURE_ M I C R O B I O L O G Y R E P O R T FINAL ------- Antimicrobial Susceptibility and Organism Identification Report -------- Specimen Number : [id number] Requested : 01/07/20 Specimen Source : CLEAN CATCH URINE Collected : 01/07/20 02:30 [employer] : MEME HUANG Received : 01/07/20 02:30 Requesting Physician : FLORECITA -- Patient/Specimen Tests and Comments Specimen Comments -------- -------- FINAL REPORT: NO GROWTH AT 48 HOURS -- Tech : Source : CLEAN CATCH URINE ID # : [id number] FINAL Report Date : / / : Collected : 01/07/20 02:30 01/09/20.1027.BKO. 01/08/20.1302.KLS. 01/09/20.1027.BKO.COMPLETE 01/09/20.1027.BKO.to [facility] via fax Normal [facility] Comment on above: Performed By: #### 2 73626 #### [facility],[address] [place], [place] [id number] LITHIUMon 01-07-2020 [place] [Moles/Vol] 0.6 mmol/L Normal 0.6 - 1.2 [facility] Comment on above: Performed By: #### 2 15391 #### [facility],[address] [place] [address] 25678 URINALYSISon 01-07-2020 Bilirubin [Mass/Vol] Negative Normal NORMAL: NEGATIVE [facility] Comment on above: Performed By: #### 2 04086 #### [facility],[address] [place] [address] Blood Negative Normal NORMAL: NEGATIVE [facility] Comment on above: Performed By: #### 2 12667 #### [facility],[address] [place] [address] 06879 Clarity (U) clear Normal NORMAL: CLEAR [facility] Comment on above: Performed By: #### 2 15215 #### [facility],[address] [place] [address] 68312 Color (U) p.yel Normal NORMAL: YELLOW [facility] Comment on above: Performed By: #### 2 74742 #### [facility],[address] [place] [address] 85922 Glucose [Mass/Vol] NORM Normal NORMAL: NORMAL [facility] Comment on above: Performed By: #### 2 36040 #### [facility],[address] [place] [address] 28737 Ketone Negative Normal NORMAL: NEGATIVE [facility] Comment on above: Performed By: #### 2 57191 #### [facility],[address] [place] [address] 76911 Microscopic NOT INDICATED Normal [facility] [facility] Comment on above: Performed By: #### 2 [id number] #### [facility],[address] [place] [address] 66845 Nitrite Ql (U) Negative Normal NORMAL: NEGATIVE [facility] Comment on above: Performed By: #### 2 12252 #### [facility],[address] [place] [address] 71588 pH (Bld) 6.5 Normal NORMAL: 5.0-8.0 [facility] Comment on above: Performed By: #### 2 33845 #### [facility],[address] [place] [address] 38200 Protein (U) [Mass/Vol] Negative Normal JENN L: NEGATIVE [facility] Comment on above: Performed By: #### 2 49530 #### [facility],[address] [place] [address] Sp Virgin 1.010 Normal NORMAL: 1.010-1.03 0 [facility] Comment on above: Performed By: #### 2 08595 #### [facility],[address] [place] [address] Specimen type Nom (Spec) Clean catch Normal [facility] Comment on above: Performed By: #### 2 80178 #### [facility],[address] [place] [address] Urobilinog NORM Normal NORMAL: NORMAL [facility] Comment on above: Performed By: #### 2 92892 #### [place] [address] WBC (Bld) [#/Vol] Negative Normal NORMAL: NEGATIVE [facility] Comment on above: Performed By: #### 2 45873 #### [place] [address] URINE CREATININE AND PROTEIN RATIOon 01-07-2020 CREATININE UR 75.6 mg/dl Normal [facility] Comment on above: Performed By: #### 2 84754 #### [facility],[address] [place] [address] PC RATIO 0.07 mg/dL Normal 0.00 - 10.00 [facility] Comment on above: Performed By: #### 2 73674 #### [place] [address] Protein (U) [Mass/Vol] mg/dL Normal 0.00 - 10.00 [facility] Comment on above: Performed By: #### 2 44205 #### [place] [address] CBC + DIFFon 12-10-2019 Basophils (Bld) [#/Vol] 0.10 x10EE3/UL Normal 0. 00 - 0.10 [facility] Comment on above: Performed By: #### 2 13487 #### [facility],[address] [place] [address] 59685 Basophils/100 WBC (Bld) 0.7 % Normal 0.0 - 2.[address] [facility] Comment on above: Performed By: #### 2 69241 #### [facility],[address] [place] [address] CBC + DIFF Normal [facility] Comment on above: Result Comment: CBC- COMPLETE BLOOD COUNT Performed By: #### 2 26510 #### [facility],[address] [place] [address] Eosinophils (Bld) [#/Vol] 0.30 x10EE3/UL Normal 0.00 - 0.50 [facility] Comment on above: Performed By: #### 2 32813 #### [facility],[address] [place] [address] 10703 Eosinophils/100 WBC (Bld) 3.2 % Normal 0.0 - 7.0 [facility] Comment on above: Performed By: #### 2 69610 #### [facility],[address] [place], [place] [address] Erythrocyte distribution width (RBC) [Ratio] 12.7 % Normal 12.0 - 15.6 [facility] Comment on above: Performed By: #### 2 62540 #### [facility],[address] [place], [place] [address] Hematocrit (Bld) [Volume fraction] 38.7 % Low 40.0 - 52.0 [facility] Comment on above: Performed By: #### 2 66630 #### [facility],[address] [place] [address] 64886 Hemoglobin (Bld) [Mass/Vol] 13.4 g/dL Normal 13.0 - 17.5 [facility] Comment on above: Performed By: #### 2 46147 #### [facility],[address],[place] [address] Lymphocytes (Bld) [#/Vol] 2.10 x10EE3/UL Normal 0.80 - 2.80 [facility] Comment on above: Performed By: #### 2 41195 #### [facility],[address] [place] [address] 72085 Lymphocytes/100 WBC (Bld) 21.3 % Normal 20.0 - 45.0 [facility] Comment on above: Performed By: #### 2 66725 #### [facility],[address] [place] [address] 86225 MANUAL DIFF N/A Normal [facility] Comment on above: Performed By: #### 2 66831 #### [facility],[address] [place] [address] 76625 MCH (RBC) [Entitic mass] 31 pg Normal 27 - 33 [facility] Comment on above: Performed By: #### 2 93272 #### [facility],[address] [place] [address] 02132 MCHC (RBC) [Mass/Vol] 35 X10 3 Normal 32 - 36 [facility] Comment on above: Performed By: #### 2 51279 #### [facility],[address] [place] [address] 59847 MCV (RBC) [Entitic vol] 89 fL Normal 81 - [address] [facility] Comment on above: Performed By: #### 2 29037 #### [facility],[address] [place] [address] 29644 Monocytes (Bld) [#/Vol] 1.00 x10EE3/UL Normal 0. 20 - 1.00 [facility] Comment on above: Performed By: #### 2 97042 #### [facility],[address] [place] [address] 51064 MONOS % 10.5 % High 0.0 - 10.0 [facility] Comment on above: Performed By: #### 2 72990 #### [facility],[address] [place] [address] 39973 Morphology Crispin (Bld) [Interp] N/A Normal [facility] Comment on above: Performed By: #### 2 44097 #### [facility],[address] [place] [address] 10002 Neutrophils (Bld) [#/Vol] 6.30 x10EE3/UL Normal 1.50 - 7.10 [facility] Comment on above: Performed By: #### 2 29105 #### [facility],[address] [place] [address] 17352 Neutrophils/100 WBC (Bld) 64.3 % Normal 46.0 - 76.0 [facility] Comment on above: Performed By: #### 2 52591 #### [facility],[address] [place] [address] 89781 Platelet mean volume (Bld) [Entitic vol] 7.4 fL Normal 6.4 - 10.5 [facility] Comment on above: Result Comment: AUTO MATED DIFFERENTIAL Performed By: #### 2 73558 #### [facility],[address] [place] [address] 21163 Platelets (Bld) [#/Vol] 254 x10EE3/UL Normal 150 - 450 [facility] Comment on above: Performed By: #### 2 92001 #### [facility],[address] [place] [address] 74275 RBC (Bld) [#/Vol] 4.34 x 10EE6/UL Low 4.50 - 6.00 [facility] Comment on above: Performed By: #### 2 98263 #### [facility],[address] [place] [address] 05886 WBC (Bld) [#/Vol] 9.8 x 10EE3/UL Normal 4.5 - 10.8 [facility] Comment on above: Performed By: #### 2 18706 #### [facility],[address] [place] [address] 03772 CULTURE URINEon 12-10-2019 CULTURE URINE CULTURE URINE _URINE CULTURE_ M I C R O B I O L O G Y R E P O R T FINAL ------- Antimicrobial Susceptibility and Organism Identification Report -------- Specimen Number : [id number] Requested : 12/09/19 Specimen Source : CLEAN CATCH URINE Collected : 12/09/19 23:45 Arredondo of Isolation : MEME HUANG Received : 12/09/19 23:45 Requesting Physician : FLORECITA -- Patient/Specimen Tests and Comments Specimen Comments -------- -------- FINAL REPORT: NO GROWTH AT 48 HOURS -- Tech : Source : CLEAN CATCH URINE ID # : [id number] FINAL Report Date : / / : Collected : 12/09/19 23:45 12/12/19.BKO. 12/11/19.BKO. 12/12/19.BKO.COMPLETE 12/12/19.BKO.to [facility] via fax Normal [facility] Comment on above: Performed By: #### 2 63787 #### [facility],[address] [place] [address] 19407 LITHIUMon 12-10-2019 Nokomis [Moles/Vol] 0.6 mmol/L Normal 0.6 - 1.2 [facility] Comment on above: Performed By: #### 2 10316 #### [facility],[address] [place] [address] 85892 RENAL FUNCTION PANEL WITH eG FRon 12-10-2019 Age - Reported 54 years Normal [facility] Comment on above: Performed By: #### 2 75576 #### [facility],[address] [place] [address] 04374 Albumin [Mass/Vol] 3.6 g/dL Normal 3.4 - 4.8 [facility] Comment on above: Performed By: #### 2 06069 #### [facility],[address] [place] [address] 25450 B/C RATIO 12 ratio Normal 0 - 30 [facility] Comment on above: Performed By: #### 2 44660 #### [facility],[address] [place] [address] 52163 Calcium [Mass/Vol] 9.4 mg/dL Normal 8.6 - 10.2 [facility] Comment on above: Performed By: #### 2 96584 #### [facility],[address] [place] [address] 04192 Chloride [Moles/Vol] 105 mmol/L Normal 98 - 107 [facility] Comment on above: Performed By: #### 2 48844 #### [facility],[address] [place] [address] 07137 CO2 [Moles/Vol] 24.4 mmol/L Normal 21.0 - 31.0 [facility] Comment on above: Performed By: #### 2 79700 #### [facility],[address] [place] [address] 36626 Creatinine [Mass/Vol] 1.9 mg/dL High 0.7 - 1.3 [facility] Comment on above: Performed By: #### 2 49863 #### [facility],[address] [place] [address] 86946 GFR/1.73 sq M predicted among non-blacks MDRD (S/P/Bld) [Vol rate/Area] 37 ML/MINUTE Low 60 - 999 [facility] Comment on above: Performed By: #### 2 69049 #### [facility],[address] [place] [address] 49706 GFR/1.73 sq M predicted among non-blacks MDRD (S/P/Bld) [Vol rate/Area] 45 ML/MINUTE Low 60 - 999 [facility] Comment on above: Result Comment: ACCO RDING TO THE NATIONAL KIDNEY DISEASE EDUCATION PROGRAM(NKDE), A NORMAL eGFR IS A VALUE GREATER THAN OR EQUAL TO 60 ML/MIN/1.73 SQ METERS. CHRONIC KIDNEY DISEASE: <60mL/MIN/1.73 SQ METERS KIDNEY FAILURE: <15mL/MIN/1.73 SQ METERS THIS TEST SHOULD ONLY BE USED FOR PATIENTS 18 YEARS OF AGE AND OLDER. Performed By: #### 2 80850 #### [facility],[address] [place] [address] 68699 Glucose [Mass/Vol] 106 mg/dL Normal 74 - 106 [facility] Comment on above: Performed By: #### 2 63545 #### [facility],[address] [place] [address] 71434 Phosphate [Mass/Vol] 5.0 mg/dL High 2.7 - 4.9 [facility] Comment on above: Performed By: #### 2 06158 #### [facility],[address] [place] [address] 09896 Potassium [Moles/Vol] 3.4 mmol/L Low 3.5 - 5.1 [facility] Comment on above: Performed By: #### 2 32564 #### [facility],[address] [place] [address] 73157 RENAL FUNCTION PANEL WITH eGFR Normal [facility] Comment on above: Result Comment: JESSICA L FUNCTION PANEL Performed By: #### 2 83220 #### [facility],[address] [place] [address] 63979 Sodium [Moles/Vol] 139 mmol/L Normal 136 - 145 [facility] Comment on above: Performed By: #### 2 76763 #### [facility],[address] [place] [address] 85675 Urea nitrogen [Mass/Vol] 23 mg/dL High 6 - 20 [facility] Comment on above: Performed By: #### 2 69226 #### [facility],[address] [place] [address] 00800 URINALYSISon 12-10-2019 Bilirubin [Mass/Vol] Negative Normal NORMAL: NEGATIVE [facility] Comment on above: Performed By: #### 2 09577 #### [facility],[address] [place] [address] 06139 Blood Negative Normal NORMAL: NEGATIVE [facility] Comment on above: Performed By: #### 2 62901 #### [facility],[address] [place] [address] 63856 Clarity (U) clear Normal NORMAL: CLEAR [facility] Comment on above: Performed By: #### 2 69263 #### [facility],[address] [place] [address] Color (U) p.yel Normal NORMAL: YELLOW [facility] Comment on above: Performed By: #### 2 82820 #### [facility],[address] [place], [place] [id number] Glucose [Mass/Vol] NORM Normal NORMAL: NORMAL [facility] Comment on above: Performed By: #### 2 99122 #### [facility],[address] [place] [address] Ketone Negative Normal NORMAL: NEGATIVE [facility] Comment on above: Performed By: #### 2 42037 #### [facility],[address] [place] [address] Microscopic NOT INDICATED Normal [facility] Comment on above: Performed By: #### 2 88739 #### [facility],[address] [place] [address] Nitrite Ql (U) Negative Normal NORMAL: NEGATIVE [facility] Comment on above: Performed By: #### 2 46725 #### [facility],[address] [place] [address] pH (Bld) 6 Normal NORMAL: 5.0-8.0 [facility] Comment on above: Performed By: #### 2 88900 #### [facility],[address] [place] [address] Protein (U) [Mass/Vol] Negative Normal JENN L: NEGATIVE [facility] Comment on above: Performed By: #### 2 79417 #### [facility],[address] [place] [address] Sp Virgin 1.015 Normal NORMAL: 1.010-1.03 0 [facility] Comment on above: Performed By: #### 2 09056 #### [facility],[address] [place] [address] Specimen type Nom (Spec) Clean catch Normal [facility] Comment on above: Performed By: #### 2 29646 #### [facility],[address] [place] [address] Urobilinog NORM Normal NORMAL: NORMAL [facility] Comment on above: Performed By: #### 2 11932 #### [facility],[address] [place] [address] WBC (Bld) [#/Vol] Negative Normal NORMAL: NEGATIVE [facility] Comment on above: Performed By: #### 2 40464 #### [facility],[address] [place] [address] URINE CREATININE AND PROTEIN RATIOon 12-10-2019 CREATININE UR 97.1 mg/dl Normal [facility] Comment on above: Performed By: #### 2 57636 #### [facility],[address] [place] [address] PC RATIO 0.07 mg/dL Normal 0.00 - 10.00 [facility] Comment on above: Performed By: #### 2 24937 #### [facility],[address] [place], [place] [phone] Protein (U) [Mass/Vol] 7.00 mg/dL Normal 0.00 - 10.00 [facility] Comment on above: Performed By: #### 2 53828 #### [facility],[address] [place], [place] [phone] BMP with eGFRon 11-05-2019 Age - Reported 54 years Normal [facility] Comment on above: Performed By: #### 2 15341 #### [facility],[address] [place], [place] [address] Anion gap [Moles/Vol] 12 mmol/L Normal - [facility] Comment on above: Performed By: #### 2 86797 #### [facility],[address] [place] [address] 99277 Chloride [Moles/Vol] 105 mmol/L Normal 98 - 107 [facility] Comment on above: Performed By: #### 2 58108 #### [facility],[address] [place] [address] 59750 CO2 [Moles/Vol] 26.8 mmol/L Normal 21.0 - 31.0 [facility] Comment on above: Performed By: #### 2 23794 #### [address] [address] GFR/1.73 sq M predicted among non-blacks MDRD (S/P/Bld) [Vol rate/Area] 38 ML/MINUTE Low 60 - 999 [facility] Comment on above: Result Comment: ACCO RDING TO THE NATIONAL KIDNEY DISEASE EDUCATION PROGRAM(NKDE), A NORMAL eGFR IS A VALUE GREATER THAN OR EQUAL TO 60 ML/MIN/1.73 SQ METERS. CHRONIC KIDNEY DISEASE: <60mL/MIN/1.73 SQ METERS KIDNEY FAILURE: <15mL/MIN/1.73 SQ METERS THIS TEST SHOULD ONLY BE USED FOR PATIENTS 18 YEARS OF AGE AND OLDER. Performed By: #### 2 08513 #### [address] [address] GFR/1.73 sq M predicted among non-blacks MDRD (S/P/Bld) [Vol rate/Area] 31 ML/MINUTE Low 60 - 999 [facility] Comment on above: Performed By: #### 2 91067 #### [facility],[address] [place] [address] 46078 GFR/1.73 sq M predicted among non-blacks MDRD (S/P/Bld) [Vol rate/Area] Normal [facility] Comment on above: Result Comment: BASI C METABOLIC PANEL Performed By: #### 2 39828 #### [address] [address] Potassium [Moles/Vol] 3.4 mmol/L Low 3.5 - 5.1 [facility] Comment on above: Performed By: #### 2 02724 #### [facility],[address] [place], [place] [phone] Sodium [Moles/Vol] 140 mmol/L Normal 136 - 145 [facility] Comment on above: Performed By: #### 2 28617 #### [facility],[address] [place] [address] CBC + DIFFon 11-05-2019 Basophils (Bld) [#/Vol] 0.10 x10EE3/UL Normal 0. 00 - 0.10 [facility] Comment on above: Performed By: #### 2 79328 #### [facility],[address] [place] [address] 57244 Basophils/100 WBC (Bld) 0.9 % Normal 0.0 - 2.[address] [facility] Comment on above: Performed By: #### 2 10267 #### [facility],[address] [place] [address] CBC + DIFF Normal [facility] Comment on above: Result Comment: CBC- COMPLETE BLOOD COUNT Performed By: #### 2 17169 #### [place] [id number] Eosinophils (Bld) [#/Vol] 0.40 x10EE3/UL Normal 0.00 - 0.50 [facility] Comment on above: Performed By: #### 2 23115 #### [facility],[address] [place] [address] 86869 Eosinophils/100 WBC (Bld) 3.9 % Normal 0.0 - 7.0 [facility] Comment on above: Performed By: #### 2 54719 #### [facility],[address] [place], [place] [address] Erythrocyte distribution width (RBC) [Ratio] 12.4 % Normal 12.0 - 15.6 [facility] Comment on above: Performed By: #### 2 36807 #### [facility],[address] [place] [address] 49476 Hematocrit (Bld) [Volume fraction] 39.9 % Low 40.0 - 52.0 [facility] Comment on above: Performed By: #### 2 44193 #### [facility],[address] [place] [address] 97075 Hemoglobin (Bld) [Mass/Vol] 13.3 g/dL Normal 13.0 - 17.5 [facility] Comment on above: Performed By: #### 2 59027 #### [facility],[address] [place] [address] 10029 Lymphocytes (Bld) [#/Vol] 1.90 x10EE3/UL Normal 0.80 - 2.80 [facility] Comment on above: Performed By: #### 2 01393 #### [facility],[address] [place] [address] 62514 Lymphocytes/100 WBC (Bld) 20.3 % Normal 20.0 - 45.0 [facility] Comment on above: Performed By: #### 2 29355 #### [facility],[address] [place] [address] 58386 MANUAL DIFF N/A Normal [facility] Comment on above: Performed By: #### 2 64518 #### [facility],[address] [place] [address] 33187 MCH (RBC) [Entitic mass] 30 pg Normal 27 - 33 [facility] Comment on above: Performed By: #### 2 37910 #### [facility],[address] [place] [address] 81768 MCHC (RBC) [Mass/Vol] 33 X10 3 Normal 32 - 36 [facility] Comment on above: Performed By: #### 2 91174 #### [facility],[address] [place] [address] 49832 MCV (RBC) [Entitic vol] 91 fL Normal 81 - [address] [facility] Comment on above: Performed By: #### 2 79505 #### [facility],[address] [place] [address] 99210 Monocytes (Bld) [#/Vol] 1.00 x10EE3/UL Normal 0. 20 - 1.00 [facility] Comment on above: Performed By: #### 2 18655 #### [facility],[address] [place] [address] 83303 MONOS % 10.5 % High 0.0 - 10.0 [facility] Comment on above: Performed By: #### 2 19850 #### [facility],[address] [place] [address] 18514 Morphology Crispin (Bld) [Interp] N/A Normal [facility] Comment on above: Performed By: #### 2 60245 #### [address] [address] Neutrophils (Bld) [#/Vol] 6.10 x10EE3/UL Normal 1.50 - 7.10 [facility] Comment on above: Performed By: #### 2 40915 #### [facility],[address] [place] [address] 52205 Neutrophils/100 WBC (Bld) 64.4 % Normal 46.0 - 76.0 [facility] Comment on above: Performed By: #### 2 69386 #### [facility],[address] [place] [address] 15815 Platelet mean volume (Bld) [Entitic vol] 7.4 fL Normal 6.4 - 10.5 [facility] Comment on above: Result Comment: AUTO MATED DIFFERENTIAL Performed By: #### 2 31450 #### [facility],[address] [place] [address] 78831 Platelets (Bld) [#/Vol] 260 x10EE3/UL Normal 150 - 450 [facility] Comment on above: Performed By: #### 2 25420 #### [facility],[address] [place] [address] RBC (Bld) [#/Vol] 4.38 x 10EE6/UL Low 4.50 - 6.00 [facility] Comment on above: Performed By: #### 2 93681 #### [facility],[address] [place] [address] WBC (Bld) [#/Vol] 9.4 x 10EE3/UL Normal 4.5 - 10.8 [facility] Comment on above: Performed By: #### 2 84917 #### [facility],[address] [place] [address] LITHIUMon 11-05-2019 N[place]omis [Moles/Vol] 0.5 mmol/L Low 0.6 - 1.2 [facility] Comment on above: Performed By: #### 2 62705 #### [facility],[address] [place] [address] RENAL FUNCTION PANELon 11-05 Albumin [Mass/Vol] 3.5 g/dL Normal 3.4 - 4.8 [facility] Comment on above: Performed By: #### 2 54944 #### [facility],[address] [place] [address] B/C RATIO 9 ratio Normal 0 - 30 [facility] Comment on above: Performed By: #### 2 49219 #### [facility],[address] [place] [address] Calcium [Mass/Vol] 9.4 mg/dL Normal 8.6 - 10.2 [facility] Comment on above: Performed By: #### 2 65386 #### [facility],[address] [place] [address] Creatinine [Mass/Vol] 2.2 mg/dL High 0.7 - 1.3 [facility] Comment on above: Performed By: #### 2 50183 #### [facility],[address] [place] [address] Glucose [Mass/Vol] 105 mg/dL Normal 74 - 106 [facility] Comment on above: Performed By: #### 2 94141 #### [facility],[address] [place], [place] [address] Phosphate [Mass/Vol] 4.3 mg/dL Normal 2.7 - 4.9 [facility] Comment on above: Performed By: #### 2 42475 #### [facility],[address] [place] [address] RENAL FUNCTION PANEL Normal [facility] Comment on above: Result Comment: JESSICA L FUNCTION PANEL Performed By: #### 2 57109 #### [facility],[address] [place] [address] Urea nitrogen [Mass/Vol] 20 mg/dL Normal 6 - 20 [facility] Comment on above: Performed By: #### 2 83998 #### [facility],[address] [place] [address] URINALYSISon 11-05-2019 Bilirubin [Mass/Vol] Negative Normal NORMAL: NEGATIVE [facility] Comment on above: Performed By: #### 2 64802 #### [facility],[address] [place] [address] Blood Negative Normal NORMAL: NEGATIVE [facility] Comment on above: Performed By: #### 2 52901 #### [facility] [facility],[address] [place], [place] [id number] Clarity (U) clear Normal NORMAL: CLEAR [facility] Comment on above: Performed By: #### 2 87136 #### [facility],[address] [place], [place] [id number] Color (U) p.yel Normal NORMAL: YELLOW [facility] Comment on above: Performed By: #### 2 80712 #### [facility],[address] [place], [place] [id number] Glucose [Mass/Vol] NORM Normal NORMAL: NORMAL [facility] Comment on above: Performed By: #### 2 16856 #### [facility],[address] [place] [address] 66955 Ketone Negative Normal NORMAL: NEGATIVE [facility] Comment on above: Performed By: #### 2 39747 #### [facility],[address] [place] [address] Microscopic NOT INDICATED Normal [facility] Comment on above: Performed By: #### 2 79340 #### [facility],[address] [place], [place] [id number] Nitrite Ql (U) Negative Normal NORMAL: NEGATIVE [facility] Comment on above: Performed By: #### 2 41152 #### [facility],[address] [place] [address] pH (Bld) 6.5 Normal NORMAL: 5.0-8.0 [facility] Comment on above: Performed By: #### 2 46762 #### [facility],[address] [place], [place] [id number] Protein (U) [Mass/Vol] Negative Normal JENN L: NEGATIVE [facility] Comment on above: Performed By: #### 2 92612 #### [facility],[address] [place] [address] 48844 Sp Virgin 1.010 Normal NORMAL: 1.010-1.03 0 [facility] Comment on above: Performed By: #### 2 06200 #### [facility],[address] [place], [place] [id number] Specimen type Nom (Spec) UNSPECIFIED Normal [facility] Comment on above: Performed By: #### 2 22002 #### [facility],[address] [place] [address] 09831 Urobilinog NORM Normal NORMAL: NORMAL [facility] Comment on above: Performed By: #### 2 05752 #### [facility],[address] [place] [address] 98504 WBC (Bld) [#/Vol] Negative Normal NORMAL: NEGATIVE [facility] Comment on above: Performed By: #### 2 09190 #### [facility],[address] [place] [address] 49252 URINE CREATININE AND PROTEIN RATIOon 11-05-2019 CREATININE UR 72.6 mg/dl Normal [facility] Comment on above: Performed By: #### 2 82406 #### [facility],[address] [place] [address] 47006 PC RATIO 0.07 mg/dL Normal 0.00 - 10.00 [facility] Comment on above: Performed By: #### 2 50737 #### [facility],[address] [place] [address] 27114 Protein (U) [Mass/Vol] mg/dL Normal 0.00 - 10.00 [facility] Comment on above: Performed By: #### 2 37791 #### [facility],[address] [place] [address] 72136 BMP with eGFRon 10-08-2019 Age - Reported 54 years Normal [facility] Comment on above: Performed By: #### 2 98002 #### [facility],[address] [place] [address] 41592 Anion gap [Moles/Vol] 12 mmol/L Normal 10 - 20 [facility] Comment on above: Performed By: #### 2 36055 #### [facility],[address] [place] [address] 64180 Calcium [Mass/Vol] 9.2 mg/dL Normal 8.6 - 10.2 [facility] Comment on above: Performed By: #### 2 56254 #### [facility],[address] [place] [address] 65907 Chloride [Moles/Vol] 107 mmol/L Normal 98 - 107 [facility] Comment on above: Performed By: #### 2 48085 #### [facility],[address] [place] [address] 98649 CO2 [Moles/Vol] 26.7 mmol/L Normal 21.0 - 31.0 [facility] Comment on above: Performed By: #### 2 75682 #### [facility],[address] [place] [address] 99967 Creatinine [Mass/Vol] 2.1 mg/dL High 0.7 - 1.3 [facility] Comment on above: Performed By: #### 2 81688 #### [facility],[address] [place] [address] 07099 GFR/1.73 sq M predicted among non-blacks MDRD (S/P/Bld) [Vol rate/Area] Normal [facility] Comment on above: Result Comment: BASI C METABOLIC PANEL Performed By: #### 2 65210 #### [facility],[address] [place] [address] 47304 GFR/1.73 sq M predicted among non-blacks MDRD (S/P/Bld) [Vol rate/Area] 40 ML/MINUTE Low 60 - 999 [facility] Comment on above: Result Comment: ACCO RDING TO THE NATIONAL KIDNEY DISEASE EDUCATION PROGRAM(NKDE), A NORMAL eGFR IS A VALUE GREATER THAN OR EQUAL TO 60 ML/MIN/1.73 SQ METERS. CHRONIC KIDNEY DISEASE: <60mL/MIN/1.73 SQ METERS KIDNEY FAILURE: <15mL/MIN/1.73 SQ METERS THIS TEST SHOULD ONLY BE USED FOR PATIENTS 18 YEARS OF AGE AND OLDER. Performed By: #### 2 19216 #### [facility],[address] [place] [address] 65623 GFR/1.73 sq M predicted among non-blacks MDRD (S/P/Bld) [Vol rate/Area] 33 ML/MINUTE Low 60 - 999 [facility] Comment on above: Performed By: #### 2 27640 #### [facility],[address] [place] [address] 67058 Glucose [Mass/Vol] 106 mg/dL Normal 74 - 106 [facility] Comment on above: Performed By: #### 2 42631 #### [facility],[address] [place] [address] 22938 Potassium [Moles/Vol] 3.6 mmol/L Normal 3.5 - 5.1 [facility] Comment on above: Performed By: #### 2 60218 #### [facility],[address] [place] [address] 81574 Sodium [Moles/Vol] 142 mmol/L Normal 136 - 145 [facility] Comment on above: Performed By: #### 2 49079 #### [facility],[address] [place] [address] 91439 Urea nitrogen [Mass/Vol] 22 mg/dL High 6 - 20 [facility] Comment on above: Performed By: #### 2 35918 #### [facility],[address] [place] [address] 20317 CBC + DIFFon 10-08-2019 Basophils (Bld) [#/Vol] 0.10 x10EE3/UL Normal 0. 00 - 0.10 [facility] Comment on above: Performed By: #### 2 45150 #### [address] [address] Basophils/100 WBC (Bld) 0.7 % Normal 0.0 - 2.[address] [facility] Comment on above: Performed By: #### 2 22675 #### [facility],[address] [place] [address] 56361 CBC + DIFF Normal [facility] Comment on above: Result Comment: CBC- COMPLETE BLOOD COUNT Performed By: #### 2 80837 #### [address] [address] Eosinophils (Bld) [#/Vol] 0.50 x10EE3/UL Normal 0.00 - 0.50 [facility] Comment on above: Performed By: #### 2 50027 #### [facility],[address] [place], [place] [address] Eosinophils/100 WBC (Bld) 5.1 % Normal 0.0 - 7.0 [facility] Comment on above: Performed By: #### 2 57604 #### [facility],[address] [place] [address] Erythrocyte distribution width (RBC) [Ratio] 12.8 % Normal 12.0 - 15.6 [facility] Comment on above: Performed By: #### 2 02844 #### [facility],[address] [place] [address] Hematocrit (Bld) [Volume fraction] 37.6 % Low 40.0 - 52.0 [facility] Comment on above: Performed By: #### 2 32310 #### [facility],[address] [place] [address] Hemoglobin (Bld) [Mass/Vol] 12.5 g/dL Low 13.0 - 17.5 [facility] Comment on above: Performed By: #### 2 46693 #### [facility],[address] [place], [place] [address] Lymphocytes (Bld) [#/Vol] 1.90 x10EE3/UL Normal 0.80 - 2.80 [facility] Comment on above: Performed By: #### 2 63146 #### [facility],[address] [place], [place] [address] Lymphocytes/100 WBC (Bld) 18.6 % Low 20.0 - 45.0 [facility] Comment on above: Performed By: #### 2 25034 #### [facility],[address] [place], [place] [address] MANUAL DIFF N/A Normal [facility] Comment on above: Performed By: #### 2 80484 #### [facility],[address] [place] [address] 00477 MCH (RBC) [Entitic mass] 31 pg Normal 27 - 33 [facility] Comment on above: Performed By: #### 2 88314 #### [facility],[address] [place] [address] 70250 MCHC (RBC) [Mass/Vol] 33 X10 3 Normal 32 - 36 [facility] Comment on above: Performed By: #### 2 58540 #### [facility],[address] [place] [address] 01861 MCV (RBC) [Entitic vol] 93 fL Normal 81 - [address] [facility] Comment on above: Performed By: #### 2 10172 #### [facility],[address] [place] [address] 53148 Monocytes (Bld) [#/Vol] 1.00 x10EE3/UL Normal 0. 20 - 1.00 [facility] Comment on above: Performed By: #### 2 76714 #### [facility],[address] [place] [address] 72333 MONOS % 9.4 % Normal 0.0 - 10.0 [facility] Comment on above: Performed By: #### 2 60009 #### [facility],[address] [place] [address] 55250 Morphology Crispin (Bld) [Interp] N/A Normal [facility] Comment on above: Performed By: #### 2 67637 #### [facility],[address] [place] [address] 16517 Neutrophils (Bld) [#/Vol] 6.90 x10EE3/UL Normal 1.50 - 7.10 [facility] Comment on above: Performed By: #### 2 71180 #### [facility],[address] [place] [address] 38307 Neutrophils/100 WBC (Bld) 66.2 % Normal 46.0 - 76.0 [facility] Comment on above: Performed By: #### 2 35805 #### [facility],[address] [place] [address] 22031 Platelet mean volume (Bld) [Entitic vol] 7.7 fL Normal 6.4 - 10.5 [facility] Comment on above: Result Comment: AUTO MATED DIFFERENTIAL Performed By: #### 2 73048 #### [facility],[address] [place] [address] 91461 Platelets (Bld) [#/Vol] 250 x10EE3/UL Normal 150 - 450 [facility] Comment on above: Performed By: #### 2 79941 #### [facility],[address] [place], [place] [address] RBC (Bld) [#/Vol] 4.07 x 10EE6/UL Low 4.50 - 6.00 [facility] Comment on above: Performed By: #### 2 40244 #### [facility],[address] [place], [place] [address] WBC (Bld) [#/Vol] 10.4 x 10EE3/UL Normal 4.5 - 10.8 [facility] Comment on above: Performed By: #### 2 93962 #### [facility],[address] [place] [address] CULTURE URINEon 10-08-2019 CULTURE URINE CULTURE URINE _URINE CULTURE_ M I C R O B I O L O G Y R E P O R T FINAL ------- Antimicrobial Susceptibility and Organism Identification Report -------- Specimen Number : [id number] Requested : 10/08/19 Specimen Source : URINE Collected : 10/08/19 08:30 Arredondo of Isolation : MEME HUANG Received : 10/08/19 08:30 Requesting Physician : FLORECITA -- Patient/Specimen Tests and Comments Specimen Comments -------- -------- FINAL REPORT: NO GROWTH AT 48 HOURS -- Tech : Source : URINE ID # : [id number] FINAL Report Date : / / : Collected : 10/08/19 08:30 10/10/19.1115.BKO. 10/09/19.1011.BKO. 10/10/19.111.BKO.COMPLETE Normal [facility] Comment on above: Performed By: #### 2 22769 #### [facility],[address] [place] [address] HEPATIC FUNCTION PANELon ALK PHOS 52 U/L Normal 38 - 126 [facility] Comment on above: Performed By: #### 2 66599 #### [facility],[address] [place] [address] 48209 ALT/SGPT 15 U/L Normal 10 - 40 [facility] Comment on above: Performed By: #### 2 55484 #### [facility],[address] [place] [address] AST/SGOT 9 U/L Low 13 - 39 [facility] Comment on above: Performed By: #### 2 21348 #### [facility],[address] [place], [place] [address] Bilirubin [Mass/Vol] 0.3 mg/dL Normal 0.0 - 1.5 [facility] Comment on above: Performed By: #### 2 54829 #### [facility],[address] [place] [address] Bilirubin.direct [Mass/Vol] 0.1 mg/dL Normal 0.0 - 0.1 [facility] Comment on above: Performed By: #### 2 42373 #### [facility],[address] [place] [address] HEPATIC FUNCTION PANEL Normal [facility] Comment on above: Result Comment: HEPA TIC FUNCTION PROFILE Performed By: #### 2 04274 #### [facility],[address] [place] [address] 35901 Protein [Mass/Vol] 5.5 g/dL Low 6.4 - 8.3 [facility] Comment on above: Performed By: #### 2 53422 #### [facility],[address] [place] [address] 59097 LITHIUMon 10-08-2019 [place]is [Moles/Vol] 0.6 mmol/L Normal 0.6 - 1.2 [facility] Comment on above: Performed By: #### 2 45570 #### [facility],[address] [place], [place] [id number] RENAL FUNCTION PANELon 10-08 Albumin [Mass/Vol] 3.5 g/dL Normal 3.4 - 4.8 [facility] Comment on above: Performed By: #### 2 39998 #### [facility],[address] [place] [address] 65622 B/C RATIO 10 ratio Normal 0 - 30 [facility] Comment on above: Performed By: #### 2 93623 #### [facility],[address] [place] [address] 73441 Calcium [Mass/Vol] 9.2 mg/dL Normal 8.6 - 10.2 [facility] Comment on above: Performed By: #### 2 63181 #### [facility],[address] [place] [address] 81423 Chloride [Moles/Vol] 107 mmol/L Normal 98 - 107 [facility] Comment on above: Performed By: #### 2 07499 #### [facility],[address] [place] [address] 25015 CO2 [Moles/Vol] 26.7 mmol/L Normal 21.0 - 31.0 [facility] Comment on above: Performed By: #### 2 20370 #### [facility],[address] [place] [address] 03847 Creatinine [Mass/Vol] 2.1 mg/dL High 0.7 - 1.3 [facility] Comment on above: Performed By: #### 2 05983 #### [facility],[address] [place] [address] 13843 Glucose [Mass/Vol] 106 mg/dL Normal 74 - 106 [facility] Comment on above: Performed By: #### 2 18198 #### [facility],[address] [place] [address] 77706 Phosphate [Mass/Vol] 4.7 mg/dL Normal 2.7 - 4.9 [facility] Comment on above: Performed By: #### 2 28930 #### [facility],[address] [place] [address] 24905 Potassium [Moles/Vol] 3.6 mmol/L Normal 3.5 - 5.1 [facility] Comment on above: Performed By: #### 2 54319 #### [facility],[address] [place] [address] 99809 RENAL FUNCTION PANEL Normal [facility] Comment on above: Result Comment: JESSICA L FUNCTION PANEL Performed By: #### 2 02836 #### [facility],[address] [place] [address] 32841 Sodium [Moles/Vol] 142 mmol/L Normal 136 - 145 [facility] Comment on above: Performed By: #### 2 48067 #### [facility],[address] [place] [address] 82995 Urea nitrogen [Mass/Vol] 22 mg/dL High 6 - 20 [facility] Comment on above: Performed By: #### 2 62020 #### [facility],[address] [place] [address] 86530 URINALYSISon 10-08-2019 Bilirubin [Mass/Vol] Negative Normal NORMAL: NEGATIVE [facility] Comment on above: Performed By: #### 2 55180 #### [facility],[address] [place] [address] 74034 Blood Negative Normal NORMAL: NEGATIVE [facility] Comment on above: Performed By: #### 2 40301 #### [facility],[address] [place] [address] 84095 Clarity (U) clear Normal NORMAL: CLEAR [facility] Comment on above: Performed By: #### 2 65220 #### [facility],[address] [place] [address] 38230 Color (U) p.yel Normal NORMAL: YELLOW [facility] Comment on above: Performed By: #### 2 98315 #### [facility],[address] [place] [address] Glucose [Mass/Vol] NORM Normal NORMAL: NORMAL [facility] Comment on above: Performed By: #### 2 35729 #### [facility],[address] [place] [address] Ketone Negative Normal NORMAL: NEGATIVE [facility] Comment on above: Performed By: #### 2 04411 #### [facility],[address] [place] [address] Microscopic NOT INDICATED Normal [facility] Comment on above: Performed By: #### 2 81396 #### [facility],[address] [place] [address] Nitrite Ql (U) Negative Normal NORMAL: NEGATIVE [facility] Comment on above: Performed By: #### 2 76929 #### [facility],[address] [place] [address] pH (Bld) 6 Normal NORMAL: 5.0-8.0 [facility] Comment on above: Performed By: #### 2 88164 #### [facility],[address] [place] [address] Protein (U) [Mass/Vol] Negative Normal JENN L: NEGATIVE [facility] Comment on above: Performed By: #### 2 72191 #### [facility],[address] [place] [address] Sp Virgin 1.015 Normal NORMAL: 1.010-1.03 0 [facility] Comment on above: Performed By: #### 2 13311 #### [facility],[address] [place] [address] Specimen type Nom (Spec) Clean catch Normal [facility] Comment on above: Performed By: #### 2 51886 #### [facility],[address] [place], [place] [id number] Urobilinog NORM Normal NORMAL: NORMAL [facility] Comment on above: Performed By: #### 2 69515 #### [facility],[address] [place] [address] 49374 WBC (Bld) [#/Vol] Negative Normal NORMAL: NEGATIVE [facility] Comment on above: Performed By: #### 2 61423 #### [facility],[address] [place] [address] 80460 CBC + DIFFon 09-10-2019 Basophils (Bld) [#/Vol] 0.10 x10EE3/UL Normal 0. 00 - 0.10 [facility] Comment on above: Performed By: #### 2 64164 #### [facility],[address] [place] [address] 49805 Basophils/100 WBC (Bld) 1.0 % Normal 0.0 - 2.[address] [facility] Comment on above: Performed By: #### 2 05739 #### [facility],[address] [place], [place] [address] CBC + DIFF Normal [facility] Comment on above: Result Comment: CBC- COMPLETE BLOOD COUNT Performed By: #### 2 45848 #### [facility],[address] [place] [address] 81277 Eosinophils (Bld) [#/Vol] 0.50 x10EE3/UL Normal 0.00 - 0.50 [facility] Comment on above: Performed By: #### 2 27370 #### [facility],[address] [place] [address] 48463 Eosinophils/100 WBC (Bld) 6.3 % Normal 0.0 - 7.0 [facility] Comment on above: Performed By: #### 2 76867 #### [facility],[address] [place] [address] 74801 Erythrocyte distribution width (RBC) [Ratio] 13.3 % Normal 12.0 - 15.6 [facility] Comment on above: Performed By: #### 2 16486 #### [facility],[address] [place] [address] 15083 Hematocrit (Bld) [Volume fraction] 36.9 % Low 40.0 - 52.0 [facility] Comment on above: Performed By: #### 2 16554 #### [facility],[address] [place] [address] 22326 Hemoglobin (Bld) [Mass/Vol] 12.5 g/dL Low 13.0 - 17.5 [facility] Comment on above: Performed By: #### 2 15156 #### [facility],[address] [place] [address] 55059 Lymphocytes (Bld) [#/Vol] 2.20 x10EE3/UL Normal 0.80 - 2.80 [facility] Comment on above: Performed By: #### 2 29932 #### [facility],[address] [place] [address] 66844 Lymphocytes/100 WBC (Bld) 25.0 % Normal 20.0 - 45.0 [facility] Comment on above: Performed By: #### 2 96118 #### [facility],[address] [place] [address] 94419 MANUAL DIFF N/A Normal [facility] Comment on above: Performed By: #### 2 99514 #### [facility],[address] [place] [address] 35704 MCH (RBC) [Entitic mass] 31 pg Normal 27 - 33 [facility] Comment on above: Performed By: #### 2 89307 #### [facility],[address] [place] [address] 23246 MCHC (RBC) [Mass/Vol] 34 X10 3 Normal 32 - 36 [facility] Comment on above: Performed By: #### 2 51932 #### [facility],[address] [place] [address] 99204 MCV (RBC) [Entitic vol] 93 fL Normal 81 - [address] [facility] Comment on above: Performed By: #### 2 74582 #### [facility],[address] [place] [address] 34284 Monocytes (Bld) [#/Vol] 0.90 x10EE3/UL Normal 0. 20 - 1.00 [facility] Comment on above: Performed By: #### 2 39089 #### [facility],[address] [place] [address] 24725 MONOS % 10.6 % High 0.0 - 10.0 [facility] Comment on above: Performed By: #### 2 36554 #### [facility],[address] [place] [address] 68961 Morphology Crispin (Bld) [Interp] N/A Normal [facility] Comment on above: Performed By: #### 2 45819 #### [address] [address] Neutrophils (Bld) [#/Vol] 5.00 x10EE3/UL Normal 1.50 - 7.10 [facility] Comment on above: Performed By: #### 2 60818 #### [facility],[address] [place] [address] 84492 Neutrophils/100 WBC (Bld) 57.1 % Normal 46.0 - 76.0 [facility] Comment on above: Performed By: #### 2 41194 #### [facility],[address] [place] [address] 90738 Platelet mean volume (Bld) [Entitic vol] 7.6 fL Normal 6.4 - 10.5 [facility] Comment on above: Result Comment: AUTO MATED DIFFERENTIAL Performed By: #### 2 37504 #### [facility],[address] [place] [address] 76492 Platelets (Bld) [#/Vol] 236 x10EE3/UL Normal 150 - 450 [facility] Comment on above: Performed By: #### 2 66080 #### [facility],[address] [place] [address] 26419 RBC (Bld) [#/Vol] 3.99 x 10EE6/UL Low 4.50 - 6.00 [facility] Comment on above: Performed By: #### 2 86171 #### [facility],[address] [place] [address] 68968 WBC (Bld) [#/Vol] 8.7 x 10EE3/UL Normal 4.5 - 10.8 [facility] Comment on above: Performed By: #### 2 88987 #### [facility],[address] [place] [address] 94217 CULTURE URINEon 09-10-2019 CULTURE URINE CULTURE URINE _URINE CULTURE_ M I C R O B I O L O G Y R E P O R T FINAL ------- Antimicrobial Susceptibility and Organism Identification Report -------- Specimen Number : [id number] Requested : 09/10/19 Specimen Source : CLEAN CATCH URINE Collected : 09/10/19 04:30 Arredondo of Isolation : MEME HUANG Received : 09/10/19 04:30 Requesting Physician : FLORECITA -- Patient/Specimen Tests and Comments Specimen Comments -------- -------- FINAL REPORT: NO GROWTH AT 48 HOURS -- Tech : Source : CLEAN CATCH URINE ID # : [id number] FINAL Report Date : / / : Collected : 09/10/19 04:30 09/12/19.BKO. 09/11/19.0717.JLN. 09/12/19.BKO.COMPLETE 09/12/19.BKO.to [facility] via fax Normal [facility] Comment on above: Performed By: #### 2 58457 #### [facility],[address] [place] [address] 31319 LITHIUMon 09-10-2019 Nokomis [Moles/Vol] 0.6 mmol/L Normal 0.6 - 1.2 [facility] Comment on above: Performed By: #### 2 65299 #### [facility],[address] [place] [address] 12280 RENAL FUNCTION PANEL WITH eG FRon 09-10-2019 Age - Reported 54 years Normal [facility] Comment on above: Performed By: #### 2 68153 #### [facility],[address] [place] [address] 04869 Albumin [Mass/Vol] 3.4 g/dL Normal 3.4 - 4.8 [facility] Comment on above: Performed By: #### 2 63623 #### [facility],[address] [place] [address] 78526 B/C RATIO 11 ratio Normal 0 - 30 [facility] Comment on above: Performed By: #### 2 36703 #### [facility],[address] [place] [address] 06120 Calcium [Mass/Vol] 9.2 mg/dL Normal 8.6 - 10.2 [facility] Comment on above: Performed By: #### 2 49097 #### [facility],[address] [place] [address] 47235 Chloride [Moles/Vol] 107 mmol/L Normal 98 - 107 [facility] Comment on above: Performed By: #### 2 51588 #### [facility],[address] [place] [address] 45968 CO2 [Moles/Vol] 25.3 mmol/L Normal 21.0 - 31.0 [facility] Comment on above: Performed By: #### 2 27737 #### [facility],[address] [place] [address] 50386 Creatinine [Mass/Vol] 2.2 mg/dL High 0.7 - 1.3 [facility] Comment on above: Performed By: #### 2 88733 #### [facility],[address] [place] [address] 80202 GFR/1.73 sq M predicted among non-blacks MDRD (S/P/Bld) [Vol rate/Area] 31 ML/MINUTE Low 60 - 999 [facility] Comment on above: Performed By: #### 2 58412 #### [facility],[address] [place] [address] 73764 GFR/1.73 sq M predicted among non-blacks MDRD (S/P/Bld) [Vol rate/Area] 38 ML/MINUTE Low 60 - 999 [facility] Comment on above: Result Comment: ACCO RDING TO THE NATIONAL KIDNEY DISEASE EDUCATION PROGRAM(NKDE), A NORMAL eGFR IS A VALUE GREATER THAN OR EQUAL TO 60 ML/MIN/1.73 SQ METERS. CHRONIC KIDNEY DISEASE: <60mL/MIN/1.73 SQ METERS KIDNEY FAILURE: <15mL/MIN/1.73 SQ METERS THIS TEST SHOULD ONLY BE USED FOR PATIENTS 18 YEARS OF AGE AND OLDER. Performed By: #### 2 60042 #### [facility],[address] [place] [address] 30388 Glucose [Mass/Vol] 96 mg/dL Normal 74 - 106 [facility] Comment on above: Performed By: #### 2 46950 #### [facility],[address] [place] [address] 83895 Phosphate [Mass/Vol] 4.5 mg/dL Normal 2.7 - 4.9 [facility] Comment on above: Performed By: #### 2 11561 #### [facility],[address] [place] [address] 18400 Potassium [Moles/Vol] 3.5 mmol/L Normal 3.5 - 5.1 [facility] Comment on above: Performed By: #### 2 21960 #### [facility],[address] [place] [address] 15150 RENAL FUNCTION PANEL WITH eGFR Normal [facility] Comment on above: Result Comment: JESSICA L FUNCTION PANEL Performed By: #### 2 33008 #### [facility],[address] [place] [address] 06738 Sodium [Moles/Vol] 141 mmol/L Normal 136 - 145 [facility] Comment on above: Performed By: #### 2 78896 #### [facility],[address] [place] [address] 78023 Urea nitrogen [Mass/Vol] 24 mg/dL High 6 - 20 [facility] Comment on above: Performed By: #### 2 69370 #### [facility],[address] [place], [place] [address] URINALYSISon 09-10-2019 Bilirubin [Mass/Vol] Negative Normal NORMAL: NEGATIVE [facility] Comment on above: Performed By: #### 2 99589 #### [facility],[address] [place] [address] 02436 Blood Negative Normal NORMAL: NEGATIVE [facility] Comment on above: Performed By: #### 2 66197 #### [facility],[address] [place], [place] [address] Clarity (U) clear Normal NORMAL: CLEAR [facility] Comment on above: Performed By: #### 2 51806 #### [facility],[address] [place] [address] Color (U) p.yel Normal NORMAL: YELLOW [facility] Comment on above: Performed By: #### 2 94156 #### [facility],[address] [place], [place] [address] Glucose [Mass/Vol] NORM Normal NORMAL: NORMAL [facility] Comment on above: Performed By: #### 2 52121 #### [facility],[address] [place], [place] [address] Ketone Negative Normal NORMAL: NEGATIVE [facility] Comment on above: Performed By: #### 2 15247 #### [facility],[address] [place] [address] Microscopic NOT INDICATED Normal [facility] Comment on above: Performed By: #### 2 94192 #### [facility],[address] [place] [address] 02062 Nitrite Ql (U) Negative Normal NORMAL: NEGATIVE [facility] Comment on above: Performed By: #### 2 74901 #### [facility],[address] [place] [address] 15669 pH (Bld) 6.5 Normal NORMAL: 5.0-8.0 [facility] Comment on above: Performed By: #### 2 15861 #### [facility],[address] [place] [address] 35901 Protein (U) [Mass/Vol] Negative Normal JENN L: NEGATIVE [facility] Comment on above: Performed By: #### 2 53735 #### [facility],[address] [place] [address] 70582 Sp Virgin 1.010 Normal NORMAL: 1.010-1.03 0 [facility] Comment on above: Performed By: #### 2 27196 #### [facility],[address] [place] [address] 62861 Specimen type Nom (Spec) Clean catch Normal [facility] Comment on above: Performed By: #### 2 98661 #### [facility],[address] [place] [address] 00963 Urobilinog NORM Normal NORMAL: NORMAL [facility] Comment on above: Performed By: #### 2 06934 #### [facility],[address] [place] [address] 11874 WBC (Bld) [#/Vol] Negative Normal NORMAL: NEGATIVE [facility] Comment on above: Performed By: #### 2 91343 #### [facility],[address] [place] [address] 28873 URINE CREATININE AND PROTEIN RATIOon 09-10-2019 CREATININE UR 58.3 mg/dl Normal [facility] Comment on above: Performed By: #### 2 97143 #### [facility],[address] [place] [address] 12253 PC RATIO 0.09 mg/dL Normal 0.00 - 10.00 [facility] Comment on above: Performed By: #### 2 51118 #### [facility],[address] [place] [address] 53343 Protein (U) [Mass/Vol] mg/dL Normal 0.00 - 10.00 [facility] Comment on above: Performed By: #### 2 88535 #### [facility],[address] [place] [address] 77713 BMP with eGFRon 08-31-2019 Age - Reported 54 years Normal [facility] Comment on above: Performed By: #### 2 31903 #### [facility],[address] [place] [address] 22189 Anion gap [Moles/Vol] 12 mmol/L Normal 10 - 20 [facility] Comment on above: Performed By: #### 2 24825 #### [facility],[address] [place] [address] 29105 Calcium [Mass/Vol] 9.4 mg/dL Normal 8.6 - 10.2 [facility] Comment on above: Performed By: #### 2 93351 #### [facility],[address] [place] [address] 67974 Chloride [Moles/Vol] 104 mmol/L Normal 98 - 107 [facility] Comment on above: Performed By: #### 2 13905 #### [facility],[address] [place] [address] 09584 CO2 [Moles/Vol] 26.9 mmol/L Normal 21.0 - 31.0 [facility] Comment on above: Performed By: #### 2 81991 #### [facility],[address] [place] [address] 84251 Creatinine [Mass/Vol] 2.4 mg/dL High 0.7 - 1.3 [facility] Comment on above: Performed By: #### 2 29468 #### [facility],[address] [place] [address] 10945 GFR/1.73 sq M predicted among non-blacks MDRD (S/P/Bld) [Vol rate/Area] Normal [facility] Comment on above: Result Comment: BASI C METABOLIC PANEL Performed By: #### 2 64677 #### [facility],[address] [place] [address] 62928 GFR/1.73 sq M predicted among non-blacks MDRD (S/P/Bld) [Vol rate/Area] 28 ML/MINUTE Low 60 - 999 [facility] Comment on above: Performed By: #### 2 05265 #### [facility],[address] [place] [address] 90258 GFR/1.73 sq M predicted among non-blacks MDRD (S/P/Bld) [Vol rate/Area] 34 ML/MINUTE Low 60 - 999 [facility] Comment on above: Result Comment: ACCO RDING TO THE NATIONAL KIDNEY DISEASE EDUCATION PROGRAM(NKDE), A NORMAL eGFR IS A VALUE GREATER THAN OR EQUAL TO 60 ML/MIN/1.73 SQ METERS. CHRONIC KIDNEY DISEASE: <60mL/MIN/1.73 SQ METERS KIDNEY FAILURE: <15mL/MIN/1.73 SQ METERS THIS TEST SHOULD ONLY BE USED FOR PATIENTS 18 YEARS OF AGE AND OLDER. Performed By: #### 2 29362 #### [facility],[address] [place] [address] 68467 Glucose [Mass/Vol] 106 mg/dL Normal 74 - 106 [facility] Comment on above: Performed By: #### 2 13335 #### [facility],[address] [place] [address] 24484 Potassium [Moles/Vol] 3.5 mmol/L Normal 3.5 - 5.1 [facility] Comment on above: Performed By: #### 2 59343 #### [facility],[address] [place] [address] 43685 Sodium [Moles/Vol] 139 mmol/L Normal 136 - 145 [facility] Comment on above: Performed By: #### 2 38342 #### [facility],[address] [place] [address] 11142 Urea nitrogen [Mass/Vol] 25 mg/dL High 6 - 20 [facility] Comment on above: Performed By: #### 2 08840 #### [facility],[address] [place] [address] 22240 HGB A1C [CCL]on 08-26-2019 HbA1c (Bld) [Mass fraction] 117 mg/dL Normal [facility] Comment on above: Result Comment: eAG: (Estimated average glucose) is a calculated value from HgbA1c and is technology sales representative of the average blood glucose level in the last 2-3 month period. [facility] [address] [place] [address] Peyton Lang M.D. [id number] Performed By: #### 2 10089 #### [address] [address] HbA1c (Bld) [Mass fraction] 5.7 % High 4.3-5.6 [facility] Comment on above: Result Comment: Amer [place] Diabetes Association guidelines indicate that patients with HgbA1c in the range 5.7-6.4% are at increased risk for development of diabetes, and intervention by lifestyle modification may be beneficial. HgbA1c greater or equal to 6.5% is considered diagnostic of diabetes. Performed By: #### 2 26243 #### [facility],[address] [place] [address] 34372 Hemoglobin A1con 08-26-2019 HbA1c (Bld) [Mass fraction] 5.7 % High 4.3-5.6 [facility] Comment on above: Performed By: #### H BA1C #### [facility] Routine Lab [address] [place] [address] HbA1c (Bld) [Mass fraction] 117 mg/dL Normal [facility] Comment on above: Performed By: #### H BA1C #### [facility] Routine Lab [address] [place] [address] RENAL FUNCTION PANELon 08-14 Albumin [Mass/Vol] 3.2 g/dL Low 3.4 - 4.8 [facility] Comment on above: Performed By: #### 2 25408 #### [facility],[address] [place] [address] 28907 B/C RATIO 13 ratio Normal 0 - 30 [facility] Comment on above: Performed By: #### 2 40942 #### [facility],[address] [place] [address] 62255 Calcium [Mass/Vol] 8.8 mg/dL Normal 8.6 - 10.2 [facility] Comment on above: Performed By: #### 2 53025 #### [facility],[address] [place] [address] 13066 Chloride [Moles/Vol] 105 mmol/L Normal 98 - 107 [facility] Comment on above: Performed By: #### 2 38730 #### [facility],[address] [place] [address] 73397 CO2 [Moles/Vol] 29.8 mmol/L Normal 21.0 - 31.0 [facility] Comment on above: Performed By: #### 2 14053 #### [facility],[address] [place] [address] 78423 Creatinine [Mass/Vol] 2.0 mg/dL High 0.7 - 1.3 [facility] Comment on above: Performed By: #### 2 87602 #### [facility],[address] [place] [address] 04715 Glucose [Mass/Vol] 78 mg/dL Normal 74 - 106 [facility] Comment on above: Performed By: #### 2 97909 #### [facility],[address] [place] [address] 40114 Phosphate [Mass/Vol] 4.8 mg/dL Normal 2.7 - 4.9 [facility] Comment on above: Performed By: #### 2 29585 #### [facility],[address] [place] [address] 52220 Potassium [Moles/Vol] 3.9 mmol/L Normal 3.5 - 5.1 [facility] Comment on above: Performed By: #### 2 18311 #### [facility],[address] [place] [address] 65470 RENAL FUNCTION PANEL Normal [facility] Comment on above: Result Comment: JESSICA L FUNCTION PANEL Performed By: #### 2 33619 #### [facility],[address] [place] [address] 33045 Sodium [Moles/Vol] 141 mmol/L Normal 136 - 145 [facility] Comment on above: Performed By: #### 2 94918 #### [facility],[address] [place] [address] 40338 Urea nitrogen [Mass/Vol] 25 mg/dL High 6 - 20 [facility] Comment on above: Performed By: #### 2 78422 #### [facility],[address] [place] [address] CBC (NO DIFF)on 08-06-2019 CBC (NO DIFF) Normal [facility] Comment on above: Result Comment: CBC( WITHOUT DIFFERENTIAL) Performed By: #### 2 62657 #### [facility],[address] [place] [address] 07856 Erythrocyte distribution width (RBC) [Ratio] 13.2 % Normal 12.0 - 15.6 [facility] Comment on above: Performed By: #### 2 22116 #### [facility],[address] [place] [address] 57235 Hematocrit (Bld) [Volume fraction] 37.7 % Low 40.0 - 52.0 [facility] Comment on above: Performed By: #### 2 15592 #### [facility],[address] [place] [address] 77383 Hemoglobin (Bld) [Mass/Vol] 12.9 g/dL Low 13.0 - 17.5 [facility] Comment on above: Performed By: #### 2 86483 #### [facility],[address] [place] [address] 30520 MCH (RBC) [Entitic mass] 32 pg Normal 27 - 33 [facility] Comment on above: Performed By: #### 2 38136 #### [facility],[address] [place] [address] 43735 MCHC (RBC) [Mass/Vol] 34 X10 3 Normal 32 - 36 [facility] Comment on above: Performed By: #### 2 01660 #### [facility],[address] [place] [address] 25011 MCV (RBC) [Entitic vol] 94 fL Normal 81 - [address] [facility] Comment on above: Performed By: #### 2 50189 #### [facility],[address] [place] [address] 65244 Platelet mean volume (Bld) [Entitic vol] 7.3 fL Normal 6.4 - 10.5 [facility] Comment on above: Performed By: #### 2 51514 #### [facility],[address] [place] [address] 67654 Platelets (Bld) [#/Vol] 166 x10EE3/UL Normal 150 - 450 [facility] Comment on above: Performed By: #### 2 20315 #### [facility],[address] [place] [address] 31656 RBC (Bld) [#/Vol] 4.00 x 10EE6/UL Low 4.50 - 6.00 [facility] Comment on above: Performed By: #### 2 88398 #### [facility],[address] [place] [address] 50457 WBC (Bld) [#/Vol] 8.7 x 10EE3/UL Normal 4.5 - 10.8 [facility] Comment on above: Performed By: #### 2 85387 #### [facility],[address] [place] [address] 34607 CULTURE URINEon 08-06-2019 CULTURE URINE CULTURE URINE _URINE CULTURE_ M I C R O B I O L O G Y R E P O R T FINAL ------- Antimicrobial Susceptibility and Organism Identification Report -------- Specimen Number : [id number] Requested : 08/06/19 Specimen Source : CLEAN CATCH URINE Collected : 08/06/19 03:10 [place] of Isolation : MEME HUANG Received : 08/06/19 03:10 Requesting Physician : FLORECITA -- Patient/Specimen Tests and Comments Specimen Comments -------- -------- FINAL REPORT: NO GROWTH AT 48 HOURS -- Tech : Source : CLEAN CATCH URINE ID # : [id number] FINAL Report Date : / / : Collected : 08/06/19 03:10 08/08/19.1104.BKO. 08/07/19.0711.JLN. 08/08/19.1105.BKO.COMPLETE Normal [facility] Comment on above: Performed By: #### 2 94448 #### [facility],[address] [place] [address] LITHIUMon 08-06-2019 Nokomis [Moles/Vol] 0.6 mmol/L Normal 0.6 - 1.2 [facility] Comment on above: Performed By: #### 2 64350 #### [facility],[address] [place], [place] [id number] MR MRI BRAIN W/O CONTRASTon 08-06-2019 MR MRI BRAIN W/O CONTRAST [place] [address] Patient: REGGIE LEÓN Phone#: : 1965 Age: 54 Gender: M Pt. Type: Out Account: [id number] Location: Ordering: HODA EASLEYPATELSTEVEN Exam Date: 08/06/2019/8:56 Family Phys: Charge Code: 789612 Physician: [place] Order #: [id number] DLP Dose#: PROCEDURE: MRI BRAIN WITHOUT CONTRAST [...] Momin MD on 08/06/2019 at 9:51 Normal [facility] RENAL FUNCTION PANELon 08-06 Albumin [Mass/Vol] 3.3 g/dL Low 3.4 - 4.8 [facility] Comment on above: Performed By: #### 2 53507 #### [address] [address] B/C RATIO 11 ratio Normal 0 - 30 [facility] Comment on above: Performed By: #### 2 85207 #### [address] [address] Calcium [Mass/Vol] 8.9 mg/dL Normal 8.6 - 10.2 [facility] Comment on above: Performed By: #### 2 42168 #### [address] [address] Chloride [Moles/Vol] 107 mmol/L Normal 98 - 107 [facility] Comment on above: Performed By: #### 2 09030 #### [facility],[address] [place] [address] 88166 CO2 [Moles/Vol] 26.8 mmol/L Normal 21.0 - 31.0 [facility] Comment on above: Performed By: #### 2 55359 #### [address] [address] Creatinine [Mass/Vol] 2.2 mg/dL High 0.7 - 1.3 [facility] Comment on above: Performed By: #### 2 67647 #### [address] [address]208 Glucose [Mass/Vol] 84 mg/dL Normal 74 - 106 [facility] Comment on above: Performed By: #### 2 39604 #### [facility],[address] [place] [address] 70212 Phosphate [Mass/Vol] 3.9 mg/dL Normal 2.7 - 4.9 [facility] Comment on above: Performed By: #### 2 29953 #### [facility],[address] [place] [address] 39682 Potassium [Moles/Vol] 4.1 mmol/L Normal 3.5 - 5.1 [facility] Comment on above: Performed By: #### 2 28363 #### [facility],[address] [place] [address] RENAL FUNCTION PANEL Normal [facility] Comment on above: Result Comment: JESSICA L FUNCTION PANEL Performed By: #### 2 61075 #### [facility],[address] [place] [address] 64852 Sodium [Moles/Vol] 141 mmol/L Normal 136 - 145 [facility] Comment on above: Performed By: #### 2 67927 #### [facility],[address] [place] [address] 46884 Urea nitrogen [Mass/Vol] 25 mg/dL High 6 - 20 [facility] Comment on above: Performed By: #### 2 64222 #### [facility],[address] [place] [address] 01031 URINALYSISon 08-06-2019 Bilirubin [Mass/Vol] Negative Normal NORMAL: NEGATIVE [facility] Comment on above: Performed By: #### 2 46654 #### [facility],[address] [place] [address] 99767 Blood Negative Normal NORMAL: NEGATIVE [facility] Comment on above: Performed By: #### 2 43798 #### [facility],[address] [place] [address] 80877 Clarity (U) clear Normal NORMAL: CLEAR [facility] Comment on above: Performed By: #### 2 31106 #### [facility],[address] [place] [address] 64854 Color (U) p.yel Normal NORMAL: YELLOW [facility] Comment on above: Performed By: #### 2 70131 #### [facility],[address] [place] [address] 18824 Glucose [Mass/Vol] NORM Normal NORMAL: NORMAL [facility] Comment on above: Performed By: #### 2 61831 #### [facility],[address] [place] [address] Ketone Negative Normal NORMAL: NEGATIVE [facility] Comment on above: Performed By: #### 2 01855 #### [facility],[address] [place] [address] Microscopic NOT Normal [facility] Comment on above: Performed By: #### 2 36086 #### [facility],[address] [place] [address] 91228 Nitrite Ql (U) Negative Normal NORMAL: NEGATIVE [facility] Comment on above: Performed By: #### 2 47321 #### [facility],[address] [place] [address] 29143 pH (Bld) 8 Normal NORMAL: 5.0-8.0 [facility] Comment on above: Performed By: #### 2 52461 #### [facility],[address] [place] [address] 63611 Protein (U) [Mass/Vol] Negative Normal JENN L: NEGATIVE [facility] Comment on above: Performed By: #### 2 98420 #### [facility],[address] [place] [address] 36551 Sp Virgin 1.010 Normal NORMAL: 1.010-1.03 0 [facility] Comment on above: Performed By: #### 2 91823 #### [facility],[address] [place] [address] Specimen type Nom (Spec) Clean catch Normal [facility] Comment on above: Performed By: #### 2 72203 #### [facility],[address] [place] [address] Urobilinog NORM Normal NORMAL: NORMAL [facility] Comment on above: Performed By: #### 2 22835 #### [facility],[address] [place] [address] WBC (Bld) [#/Vol] Negative Normal NORMAL: NEGATIVE [facility] Comment on above: Performed By: #### 2 29436 #### [place] [address] URINE CREATININE AND PROTEIN RATIOon 08-06-2019 CREATININE UR 35.5 mg/dl Normal [facility] Comment on above: Performed By: #### 2 20862 #### [facility],[address] [place] [address] PC RATIO 0.11 mg/dL Normal 0.00 - 10.00 [facility] Comment on above: Performed By: #### 2 55581 #### [facility],[address] [place] [address] Protein (U) [Mass/Vol] mg/dL Normal 0.00 - 10.00 [facility] Comment on above: Performed By: #### 2 30404 #### [facility],[address] [place], [place] [id number] Ammoniaon 03-19-2019 Ammonia mass conc (P) 34 umol/L Normal 16-60 [facility] Comment on above: Performed By: #### L ITH #### [facility] [address] [place] [address] Basic Metabolic Panelon 05-0 Anion gap molar conc 13 mmol/L Normal 9-15 [facility] Comment on above: Result Comment: Effe ctive: 12/21/2018 New reference range for this analyte has been established. Performed By: #### L ITH #### [facility] [address] [place] [address] Calcium mass conc 8.8 mg/dL Normal 8.5-9.9 [facility] Comment on above: Result Comment: Effe ctive: 12/21/2018 New reference range for this analyte has been established. Performed By: #### L ITH #### [facility] [address] [place] [address] Chloride molar conc 106 mmol/L Normal 95-107 [facility] Comment on above: Result Comment: Effe ctive: 12/21/2018 New reference range for this analyte has been established. Performed By: #### L ITH #### [facility] [address] [place] [address] CO2 molar conc 22 mmol/L Normal 20-31 [facility] Comment on above: Result Comment: Effe ctive: 12/21/2018 New reference range for this analyte has been established. Performed By: #### L ITH #### [facility] [address] [place] [address] Creatinine mass conc 1.78 mg/dL Critically high 0.70-1.20 [facility] Comment on above: Performed By: #### L ITH #### [facility] [address] [place] [address] GFR/1.73 sq M predicted among blacks MDRD vol rate/area (S/P/Bld) 48.1 mL/min/{1.73_m2} Low >60 [facility] Comment on above: Result Comment: >60 mL/min/1.73m2 EGFR, calc. for ages 18 and older using the MDRD formula (not corrected for weight), is valid for stable renal function. Performed By: #### L ITH #### [facility] [address] [place] [address] GFR/1.73 sq M.predicted MDRD vol rate/area 39.8 mL/min/{1.73_m2} Low >60 [facility] Comment on above: Result Comment: >60 mL/min/1.73m2 EGFR, calc. for ages 18 and older using the MDRD formula (not corrected for weight), is valid for stable renal function. Performed By: #### L ITH #### [facility] [address] [place] [address] Glucose mass conc 84 mg/dL Normal 70-99 [facility] Comment on above: Result Comment: Effe ctive: 12/21/2018 New reference range for this analyte has been established. Performed By: #### L ITH #### [facility] [address] [place] [address] Potassium molar conc 4.4 mmol/L Normal 3.4-4.9 [facility] Comment on above: Result Comment: Effe ctive: 12/21/2018 New reference range for this analyte has been established. Performed By: #### L ITH #### [facility] [address] [place] [address] Sodium molar conc 141 mmol/L Normal 135-144 [facility] Comment on above: Result Comment: Effe ctive: 12/21/2018 New reference range for this analyte has been established. Performed By: #### L ITH #### [facility] [address] [place] [address] Urea nitrogen mass conc 25 mg/dL Critically high 6-20 [facility] Comment on above: Performed By: #### L ITH #### [facility] [address] [place] [address] Valproic Acid /Depakene Leve rahul 03-19-2019 Protein mass conc 62.5 ug/mL Normal 50.0-100.0 [facility] Comment on above: Performed By: #### L ITH #### [facility] [address] [place] [address] Basic Metabolic Panelon 05-0 Anion gap molar conc 14 mmol/L Normal 9-15 [facility] Comment on above: Result Comment: Effe ctive: 12/21/2018 New reference range for this analyte has been established. Performed By: #### L ITH #### [facility] [address] [place] [address] Calcium mass conc 9.1 mg/dL Normal 8.5-9.9 [facility] Comment on above: Result Comment: Effe ctive: 12/21/2018 New reference range for this analyte has been established. Performed By: #### L ITH #### [facility] [address] [place] [address] Chloride molar conc 107 mmol/L Normal 95-107 [facility] Comment on above: Result Comment: Effe ctive: 12/21/2018 New reference range for this analyte has been established. Performed By: #### L ITH #### [facility] [address] [place] [address] CO2 molar conc 22 mmol/L Normal 20-31 [facility] Comment on above: Result Comment: Effe ctive: 12/21/2018 New reference range for this analyte has been established. Performed By: #### L ITH #### [facility] [address] [place] [address] Creatinine mass conc 2.32 mg/dL Critically high 0.70-1.20 [facility] Comment on above: Performed By: #### L ITH #### [facility] [address] [place] [address] GFR/1.73 sq M predicted among blacks MDRD vol rate/area (S/P/Bld) 35.4 mL/min/{1.73_m2} Low >60 [facility] Comment on above: Result Comment: >60 mL/min/1.73m2 EGFR, calc. for ages 18 and older using the MDRD formula (not corrected for weight), is valid for stable renal function. Performed By: #### L ITH #### [facility] [address] [place] [address] GFR/1.73 sq M.predicted MDRD vol rate/area 29.3 mL/min/{1.73_m2} Low >60 [facility] Comment on above: Result Comment: >60 mL/min/1.73m2 EGFR, calc. for ages 18 and older using the MDRD formula (not corrected for weight), is valid for stable renal function. Performed By: #### L ITH #### [facility] [address] [place] [address] Glucose mass conc 97 mg/dL Normal 70-99 [facility] Comment on above: Result Comment: Effe ctive: 12/21/2018 New reference range for this analyte has been established. Performed By: #### L ITH #### [facility] [address] [place] [address] Potassium molar conc 4.5 mmol/L Normal 3.4-4.9 [facility] Comment on above: Result Comment: Effe ctive: 12/21/2018 New reference range for this analyte has been established. Performed By: #### L ITH #### [facility] [address] [place] [address] Sodium molar conc 143 mmol/L Normal 135-144 [facility] Comment on above: Result Comment: Effe ctive: 12/21/2018 New reference range for this analyte has been established. Performed By: #### L ITH #### [facility] [address] [place] [address] Urea nitrogen mass conc 29 mg/dL Critically high 6-20 [facility] Comment on above: Performed By: #### L ITH #### [facility] [address] [place] [address] Basic Metabolic Panelon 05-0 Anion gap molar conc 10 mmol/L Normal 9-15 [facility] Comment on above: Result Comment: Effe ctive: 12/21/2018 New reference range for this analyte has been established. Performed By: #### L ITH #### [facility] [address] [place] [address] Calcium mass conc 8.7 mg/dL Normal 8.5-9.9 [facility] Comment on above: Result Comment: Effe ctive: 12/21/2018 New reference range for this analyte has been established. Performed By: #### L ITH #### [facility] [address] [place] [address] Chloride molar conc 109 mmol/L Critically high 95-107 [facility] Comment on above: Result Comment: Effe ctive: 12/21/2018 New reference range for this analyte has been established. Performed By: #### L ITH #### [facility] [address] [place] [address] CO2 molar conc 24 mmol/L Normal 20-31 [facility] Comment on above: Result Comment: Effe ctive: 12/21/2018 New reference range for this analyte has been established. Performed By: #### L ITH #### [facility] [address] [place] [address] Creatinine mass conc 1.77 mg/dL Critically high 0.70-1.20 [facility] Comment on above: Performed By: #### L ITH #### [facility] [address] [place] [address] GFR/1.73 sq M predicted among blacks MDRD vol rate/area (S/P/Bld) 48.4 mL/min/{1.73_m2} Low >60 [facility] Comment on above: Result Comment: >60 mL/min/1.73m2 EGFR, calc. for ages 18 and older using the MDRD formula (not corrected for weight), is valid for stable renal function. Performed By: #### L ITH #### [facility] [address] [place] [address] GFR/1.73 sq M.predicted MDRD vol rate/area 40.0 mL/min/{1.73_m2} Low >60 [facility] Comment on above: Result Comment: >60 mL/min/1.73m2 EGFR, calc. for ages 18 and older using the MDRD formula (not corrected for weight), is valid for stable renal function. Performed By: #### L ITH #### [facility] [address] [place] [address] Glucose mass conc 95 mg/dL Normal 70-99 [facility] Comment on above: Result Comment: Effe ctive: 12/21/2018 New reference range for this analyte has been established. Performed By: #### L ITH #### [facility] [address] [place] [address] Potassium molar conc 4.8 mmol/L Normal 3.4-4.9 [facility] Comment on above: Result Comment: Effe ctive: 12/21/2018 New reference range for this analyte has been established. Performed By: #### L ITH #### [facility] [address] [place] [address] Sodium molar conc 143 mmol/L Normal 135-144 [facility] Comment on above: Result Comment: Effe ctive: 12/21/2018 New reference range for this analyte has been established. Performed By: #### L ITH #### [facility] [address] [place] [address] Urea nitrogen mass conc 25 mg/dL Critically high 6-20 [facility] Comment on above: Performed By: #### L ITH #### [facility] [address] [place] [address] Ammoniaon 03-12-2019 Ammonia mass conc (P) 20 umol/L Normal 16-60 [facility] Comment on above: Performed By: #### N H3 #### [facility] [address] [place] [address] Basic Metabolic Panelon - Anion gap molar conc 14 mmol/L Normal 9-15 [facility] Comment on above: Result Comment: Effe ctive: 12/21/2018 New reference range for this analyte has been established. Performed By: #### L ITH #### [facility] [address] [place] [address] Calcium mass conc 9.1 mg/dL Normal 8.5-9.9 [facility] Comment on above: Result Comment: Effe ctive: 12/21/2018 New reference range for this analyte has been established. Performed By: #### L ITH #### [facility] [address] [place] [address] Chloride molar conc 109 mmol/L Critically high 95-107 [facility] Comment on above: Result Comment: Effe ctive: 12/21/2018 New reference range for this analyte has been established. Performed By: #### L ITH #### [facility] [address] [place] [address] CO2 molar conc 24 mmol/L Normal 20-31 [facility] Comment on above: Result Comment: Effe ctive: 12/21/2018 New reference range for this analyte has been established. Performed By: #### L ITH #### [facility] [address] [place] [address] Creatinine mass conc 1.94 mg/dL Critically high 0.70-1.20 [facility] Comment on above: Performed By: #### L ITH #### [facility] [address] [place] [address] GFR/1.73 sq M predicted among blacks MDRD vol rate/area (S/P/Bld) 43.6 mL/min/{1.73_m2} Low >60 [facility] Comment on above: Result Comment: >60 mL/min/1.73m2 EGFR, calc. for ages 18 and older using the MDRD formula (not corrected for weight), is valid for stable renal function. Performed By: #### L ITH #### [facility] [address] [place] [address] GFR/1.73 sq M.predicted MDRD vol rate/area 36.0 mL/min/{1.73_m2} Low >60 [facility] Comment on above: Result Comment: >60 mL/min/1.73m2 EGFR, calc. for ages 18 and older using the MDRD formula (not corrected for weight), is valid for stable renal function. Performed By: #### L ITH #### [facility] [address] [place] [address] Glucose mass conc 90 mg/dL Normal 70-99 [facility] Comment on above: Result Comment: Effe ctive: 12/21/2018 New reference range for this analyte has been established. Performed By: #### L ITH #### [facility] [address] [place] [address] Potassium molar conc 4.5 mmol/L Normal 3.4-4.9 [facility] Comment on above: Result Comment: Effe ctive: 12/21/2018 New reference range for this analyte has been established. Performed By: #### L ITH #### [facility] [address] [place] [address] Sodium molar conc 147 mmol/L Critically high 135-144 [facility] Comment on above: Result Comment: Effe ctive: 12/21/2018 New reference range for this analyte has been established. Performed By: #### L ITH #### [facility] [address] [place] [address] Urea nitrogen mass conc 27 mg/dL Critically high 6-20 [facility] Comment on above: Performed By: #### L ITH #### [facility] [address] [place] [address] Nokomis Levelon 03-12-2019 [place]is molar conc 0.8 mmol/L Normal 0.6-1.2 [facility] Comment on above: Performed By: #### L ITH #### [facility] [address] [place] [address] Valproic Acid /Depakene Leve rahul 03-12-2019 Protein mass conc 70.6 ug/mL Normal 50.0-100.0 [facility] Comment on above: Performed By: #### L ITH #### [facility] [address] [place] [address] Basic Metabolic Panelon 02-13 Anion gap molar conc 13 mmol/L Normal 9-15 [facility] Comment on above: Result Comment: Effe ctive: 12/21/2018 New reference range for this analyte has been established. Performed By: #### B MP #### [facility] [address] [place] [address] Calcium mass conc 8.9 mg/dL Normal 8.5-9.9 [facility] Comment on above: Result Comment: Effe ctive: 12/21/2018 New reference range for this analyte has been established. Performed By: #### B MP #### [facility] [address] [place] [address] Chloride molar conc 108 mmol/L Critically high 95-107 [facility] Comment on above: Result Comment: Effe ctive: 12/21/2018 New reference range for this analyte has been established. Performed By: #### B MP #### [facility] [address] [place] [address] CO2 molar conc 23 mmol/L Normal 20-31 [facility] Comment on above: Result Comment: Effe ctive: 12/21/2018 New reference range for this analyte has been established. Performed By: #### B MP #### [facility] [address] [place] [address] Creatinine mass conc 1.82 mg/dL Critically high 0.70-1.20 [facility] Comment on above: Performed By: #### B MP #### [facility] [address] [place] [address] GFR/1.73 sq M predicted among blacks MDRD vol rate/area (S/P/Bld) 46.9 mL/min/{1.73_m2} Low >60 [facility] Comment on above: Result Comment: >60 mL/min/1.73m2 EGFR, calc. for ages 18 and older using the MDRD formula (not corrected for weight), is valid for stable renal function. Performed By: #### B MP #### [facility] [address] [place] [address] GFR/1.73 sq M.predicted MDRD vol rate/area 38.8 mL/min/{1.73_m2} Low >60 [facility] Comment on above: Result Comment: >60 mL/min/1.73m2 EGFR, calc. for ages 18 and older using the MDRD formula (not corrected for weight), is valid for stable renal function. Performed By: #### B MP #### [facility] [address] [place] [address] Glucose mass conc 82 mg/dL Normal 70-99 [facility] Comment on above: Result Comment: Effe ctive: 12/21/2018 New reference range for this analyte has been established. Performed By: #### B MP #### [facility] [address] [place] [address] Potassium molar conc 4.2 mmol/L Normal 3.4-4.9 [facility] Comment on above: Result Comment: Effe ctive: 12/21/2018 New reference range for this analyte has been established. Performed By: #### B MP #### [facility] [address] [place] [address] Sodium molar conc 144 mmol/L Normal 135-144 [facility] Comment on above: Result Comment: Effe ctive: 12/21/2018 New reference range for this analyte has been established. Performed By: #### B MP #### [facility] [address] [place] [address] Urea nitrogen mass conc 28 mg/dL Critically high 6-20 [facility] Comment on above: Performed By: #### B MP #### [facility] [address] [place] [address] Lipid Panelon 03-09-2019 Cholesterol in HDL mass conc 30 mg/dL Low 40-59 [facility] Comment on above: Result Comment: ATP III [...] CHD Performed By: #### L IPID #### [facility] [address] [place] [address] Cholesterol in LDL mass conc 83 mg/dL Normal 0-129 [facility] Comment on above: Result Comment: ATP III LDL Classification is Optimal. Performed By: #### L IPID #### [facility] [address] [place] [address] Cholesterol mass conc 160 mg/dL Normal 0-199 [facility] Comment on above: Result Comment: ATP III Cholesterol classification is Desirable. Performed By: #### L IPID #### [facility] [address] [place] [address] Triglyceride mass conc 234 mg/dL Critically high 0-150 [facility] Comment on above: Result Comment: ATP III Triglycerides Classification is High. Effective: 12/21/2018 New reference range for this analyte has been established. Performed By: #### L IPID #### [facility] [address] [place] [address] Ammoniaon 03-04-2019 Ammonia mass conc (P) 35 umol/L Normal 16-60 [facility] Comment on above: Performed By: #### N H3 #### [facility] [address] [place] [address] Nokomis Levelon 03-04-2019 [place] molar conc 0.7 mmol/L Normal 0.6-1.2 [facility] Comment on above: Performed By: #### L ITH #### [facility] [address] [place] [address] TSH w/out Reflexon 201 9 Thyrotropin Qn 2.880 uIU/mL Normal 0.440-3.86 [facility] Comment on above: Result Comment: Effe ctive: 12/21/2018 New reference range for this analyte has been established. Performed By: #### T SH #### [facility] [address] [place] [address] VITAMIN Don 03-04-2019 VITAMIN D 33.1 ng/mL Normal 30.0-100.0 [facility] Comment on above: Result Comment: (30- 100 ng/mL) Optimum Level This assay accurately quantifies the sum of vitamin D3, 25-Hydroxy and vitamin D2, 25-Hyroxy. Performed By: #### V ITD #### [facility] [address] [place] [address] Valproic Acid /Depakene Leve rahul 03-04-2019 Protein mass conc 25.8 ug/mL Low 50.0-100.0 [facility] Comment on above: Performed By: #### V ALPR #### [facility] [address] [place] [address] Vitamin B12 and Folateon Cobalamin (Vitamin B12) mass conc 340 pg/mL Normal 232-1245 [facility] Comment on above: Performed By: #### B 12FO #### [facility] [address] [place] [address] Folate 10.2 ng/mL Normal 7.3-26.1 [facility] Comment on above: Result Comment: As o f 16, the methodology has changed. Results from this methodology should not be compared with results from previous methodology. Performed By: #### B 12FO #### [facility] [address] [place] [address] Creatinineon 06-06-2018 Creatinine 1.93 mg/dL High 0.58-0.96 [facility] Comment on above: Performed By: #### C RET1, TSH, LI ####[facility] [id number] [place], [place] [phone] eGFR (non-black) 27 . Normal [facility] Comment on above: Performed By: #### C RET1, TSH, LI ####[facility] [id number] [place], [place] [phone] eGFR- Amer. 33 Normal [facility] Comment on above: Performed By: #### C RET1, TSH, LI ####[facility] [id number] [place], [place] [phone] Lithiumon 06-06-2018 [place]omis 0.8 mmol/L Normal 0.6-1.2 [facility] Comment on above: Performed By: #### C RET1, TSH, LI ####[facility] [id number] [place], [place] [phone] TSHon 06-06-2018 Thyroid stimulating hormone (TSH) 2.350 uU/mL Normal 0.400-5.50 0 [facility] Comment on above: Performed By: #### C RET1, TSH, LI ####[facility] [id number] [place], [place] [phone] Culture, urine Bacteria identified Cx Nom (U) Culture exhibits no growth. [facility] Work Phone: Bacteria identified Cx Nom (U) Positive [facility] Work Phone: Bacteria identified Cx Nom (U) Actinomyces turicensis [facility] Work Phone: Bacteria identified Cx Nom (U) Streptococcus mitis [facility] Work Phone: Vital Signs Date Time Vital Sign Value Performing Clinician Facility 02-26-2025 11:40-0400 Diastolic blood pressure 76 mm[Hg] [facility] Work Phone: [facility] 02-26-2025 11:40-0400 Heart rate 75 /min [facility] Work Phone: [facility] 02-26-2025 11:40-0400 Respiratory rate 18 /min [facility] Work Phone: [facility] 02-26-2025 11:40-0400 SaO2% (BldA) [Mass fraction] 96 % [facility] Work Phone: [facility] 02-26-2025 11:40-0400 Systolic blood pressure 122 mm[Hg] [facility] Work Phone: [facility] 02-26-2025 09:00-0400 Body temperature 98.6 [degF] [facility] Work Phone: [facility] 02-12-2025 14:04-0400 Diastolic blood pressure 55 mm[Hg] [facility] Work Phone: [facility] 02-12-2025 14:04-0400 Heart rate 78 /min [facility] Work Phone: [facility] 02-12-2025 14:04-0400 Respiratory rate 18 /min [facility] Work Phone: [facility] 02-12-2025 14:04-0400 SaO2% (BldA) [Mass fraction] 95 % [facility] Work Phone: [facility] 02-12-2025 14:04-0400 Systolic blood pressure 128 mm[Hg] [facility] Work Phone: [facility] 02-12-2025 09:00-0400 Body temperature 98.6 [degF] [facility] Work Phone: [facility] 09-14-2024 08:49-0400 Body height 176.3 cm Dorota Smith MD Work Phone: [facility] 09-14-2024 08:49-0400 Body mass index (BMI) [Ratio] 39.27 kg/m2 Dorota Smith MD Work Phone: [facility] 09-14-2024 08:49-0400 Body temperature 97.3 [degF] Dorota Smith MD Work Phone: [facility] 09-14-2024 08:49-0400 Body weight 122.05 kg Dorota Smith MD Work Phone: [facility] 09-14-2024 08:49-0400 Diastolic blood pressure 65 mm[Hg] Dorota Smith MD Work Phone: [facility] 09-14-2024 08:49-0400 Heart rate 106 /min Dorota Smith MD Work Phone: [facility] 09-14-2024 08:49-0400 Respiratory rate 14 /min Dorota Smith MD Work Phone: [facility] 09-14-2024 08:49-0400 Systolic blood pressure 104 mm[Hg] Dorota Smith MD Work Phone: [facility] 08-09-2024 10:45-0400 Diastolic blood pressure 68 mm[Hg] [facility] Work Phone: [facility] 08-09-2024 10:45-0400 Heart rate 82 /min [facility] Work Phone: [facility] 08-09-2024 10:45-0400 Respiratory rate 18 /min [facility] Work Phone: [facility] 08-09-2024 10:45-0400 SaO2% (BldA) [Mass fraction] 96 % [facility] Work Phone: [facility] 08-09-2024 10:45-0400 Systolic blood pressure 125 mm[Hg] [facility] Work Phone: [facility] 08-09-2024 07:00-0400 Body temperature 98.4 [degF] [facility] Work Phone: [facility] 07-17-2024 11:09-0400 Body height 182.9 cm Anthony Olivares MD Work Phone: [facility] 07-17-2024 11:09-0400 Body mass index (BMI) [Ratio] 36.48 kg/m2 Anthony Olivares MD Work Phone: [facility] 07-17-2024 11:09-0400 Body weight 122 kg Anthony Olivares MD Work Phone: [facility] 07-17-2024 11:09-0400 Diastolic blood pressure 73 mm[Hg] Anthony Olivares MD Work Phone: [facility] 07-17-2024 11:09-0400 Heart rate 90 /min Anthony Olivares MD Work Phone: [facility] 07-17-2024 11:09-0400 Systolic blood pressure 106 mm[Hg] Anthony Olivares MD Work Phone: [facility] 01-26-2024 12:00-0400 Diastolic blood pressure 62 mm[Hg] [facility] Work Phone: [facility] 01-26-2024 12:00-0400 Heart rate 97 /min [facility] Work Phone: [facility] 01-26-2024 12:00-0400 Respiratory rate 18 /min [facility] Work Phone: [facility] 01-26-2024 12:00-0400 SaO2% (BldA) [Mass fraction] 96 % [facility] Work Phone: [facility] 01-26-2024 12:00-0400 Systolic blood pressure 110 mm[Hg] [facility] Work Phone: [facility] 01-26-2024 07:05-0400 Body temperature 98.6 [degF] [facility] Work Phone: [facility] 12-20-2023 09:51-0500 Body height 177.8 cm Anthony Olivares MD Work Phone: [facility] 12-20-2023 09:51-0500 Body temperature 97.7 [degF] Anthony Olivares MD Work Phone: [facility] 12-20-2023 09:51-0500 Body weight 126.4 kg Anthony Olivares MD Work Phone: [facility] 12-20-2023 09:51-0500 Diastolic blood pressure 68 mm[Hg] Anthony Olivares MD Work Phone: [facility] 12-20-2023 09:51-0500 Heart rate 116 /min Anthony Olivares MD Work Phone: [facility] 12-20-2023 09:51-0500 Systolic blood pressure 97 mm[Hg] Anthony Olivares MD Work Phone: [facility] 02-25-2023 11:04-0400 Body height 171.5 cm Luz Daniel MD Work Phone: [facility] 02-25-2023 11:04-0400 Body temperature 97.9 [degF] Luz Daniel MD Work Phone: [facility] 02-25-2023 11:04-0400 Body weight 146.69 kg Luz Daniel MD Work Phone: [facility] 02-25-2023 11:04-0400 Diastolic blood pressure 86 mm[Hg] Luz Daniel MD Work Phone: [facility] 02-25-2023 11:04-0400 Heart rate 93 /min Luz Daniel MD Work Phone: [facility] 02-25-2023 11:04-0400 Systolic blood pressure 125 mm[Hg] Luz Daniel MD Work Phone: [facility] 11-03-2022 13:05-0500 Body temperature 97.2 [degF] Guki 2 Work Phone: [facility] 11-03-2022 13:05-0500 Diastolic blood pressure 78 mm[Hg] Guki 2 Work Phone: [facility] 11-03-2022 13:05-0500 Heart rate 89 /min Guki 2 Work Phone: [facility] 11-03-2022 13:05-0500 Respiratory rate 18 /min Douglaski 2 Work Phone: [facility] 11-03-2022 13:05-0500 SaO2% (BldA) [Mass fraction] 95 % Guki 2 Work Phone: [facility] 11-03-2022 13:05-0500 Systolic blood pressure 124 mm[Hg] Guki 2 Work Phone: [facility] 11-03-2022 07:52-0500 Body weight 144.74 kg Douglaski 2 Work Phone: [facility] 08-27-2022 10:46-0400 Body height 171.5 cm Luz Daniel MD Work Phone: [facility] 08-27-2022 10:46-0400 Body temperature 98.29 [degF] Luz Daniel MD Work Phone: [facility] 08-27-2022 10:46-0400 Body weight 146.06 kg Luz Daniel MD Work Phone: [facility] 08-27-2022 10:46-0400 Diastolic blood pressure 95 mm[Hg] Luz Daniel MD Work Phone: [facility] 08-27-2022 10:46-0400 Heart rate 109 /min Luz Daniel MD Work Phone: [facility] 08-27-2022 10:46-0400 Systolic blood pressure 132 mm[Hg] Luz Daniel MD Work Phone: [facility] 07-27-2022 15:53-0400 Body height 176.5 cm Anthony Olivares MD Work Phone: [facility] 07-27-2022 15:53-0400 Body weight 142.88 kg Anthony Olivares MD Work Phone: [facility] 07-27-2022 15:53-0400 Diastolic blood pressure 85 mm[Hg] Anthony Olivares MD Work Phone: [facility] 07-27-2022 15:53-0400 Heart rate 94 /min Anthony Olivares MD Work Phone: [facility] 07-27-2022 15:53-0400 Systolic blood pressure 128 mm[Hg] Anthony Olivares MD Work Phone: [facility] 05-05-2022 13:15-0400 Body temperature 97.2 [degF] Kidney [address] [facility] 05-05-2022 13:15-0400 Diastolic blood pressure 91 mm[Hg] Kidney 1 [facility] 05-05-2022 13:15-0400 Heart rate 116 /min Kidney 1 [facility] 05-05-2022 13:15-0400 Systolic blood pressure 157 mm[Hg] Kidney 1 [facility] 05-05-2022 07:40-0400 SaO2% (BldA) [Mass fraction] 95 % Kidney 1 [facility] 05-05-2022 07:36-0400 Body weight 140.57 kg Kidney 1 [facility] 11-04-2020 15:52-0500 Body Temperature 97.2 [degF] [facility] [place] 11-04-2020 15:52-0500 BP Diastolic 74 mm[Hg] [facility] , [place] 11-04-2020 15:52-0500 BP Systolic 113 mm[Hg] [facility] [place] 11-04-2020 15:52-0500 Pulse (Heart Rate) 92 /min [facility] [place] 11-04-2020 15:52-0500 Pulse Oximetry 96 % [facility] [place] 11-04-2020 15:52-0500 Respiratory Rate 17 /min [facility] [place] 11-04-2020 05:31-0500 Body weight 114.31 kg Ot[place], [place] Encounters Encounter Date Encounter Type Care Provider Facility Start: 05-24-2025 ambulatory Adam Wandamele CHANDLER Fac ility:[facility] Start: 05-23-2025 End: 05-23-2025 Telemedicine consultation with patient Anthony Olivares MD Work Phone: Kidney [facility] Start: 05-23-2025 End: 05-27-2025 ambulatory Anthony Olivares MD Work Phone: Kidney [facility] Comment on above: 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 Elgin Bal MD Work Phone: -[place] Start: 04-01-2025 End: 04-01-2025 Departed Referred Adam Ferraro [facility] [employer] Start: 04-01-2025 End: 04-01-2025 ambulatory Adam CHANDLER Facility:[facility] Start: 03-27-2025 ambulatory Alfredo CHANDLER Faci lity:[facility] Start: 03-27-2025 Registered Referred Alfredo Martinez [facility] [employer] Start: 03-04-2025 End: 03-04-[address] Elgin Bal MD Work Phone: [facility] Work Phone: Start: 03-04-2025 End: 03-04-2025 Departed Referred Adam Ferraro -[facility] [employer] Start: 03-04-2025 Registered Referred Adam Ferraro [facility] [employer] Start: 03-04-2025 End: 03-04-2025 ambulatory Adam CHANDLER Facility:[facility] Start: 02-27-2025 End: 02-27-[address] Elgin Bal MD Work Phone: [facility] Work Phone: Start: 02-27-2025 End: 02-27-2025 [facility] [employer] [facility] Start: 02-27-2025 Registered Referred Alfredo Martinez [facility] [employer] Start: 02-26-2025 End: 02-27-2025 ambulatory ANTHONY OLIVARES Facility:[facility] Start: 02-26-2025 End: 02-26-2025 Subsequent hospital visit by physician Chair [facility] Work Phone: [facility] Start: 02-25-2025 End: 02-25-[address] Elgin Bal MD Work Phone: [facility] Work Phone: Start: 02-25-2025 End: 02-25-2025 Departed Referred Adam Jasmine [facility] [employer] Start: 02-25-2025 Registered Referred Adam Ferraro -[facility] [employer] Start: 02-25-2025 End: 02-25-2025 ambulatory Adam CHANDLER Facility:[facility] Start: 02-12-2025 ambulatory ANTHONY OLIVARES Facility: [facility] Start: 02-12-2025 End: 02-12-2025 Subsequent hospital visit by physician Chair [facility] Work Phone: [facility] Start: 02-11-2025 End: 02-11-[address] Elgin Bal MD Work Phone: [facility] Work Phone: Start: 02-11-2025 End: 02-11-2025 Departed Referred Alfredo Phipps [facility] [employer] Start: 02-11-2025 Registered Referred Alfredo Phipps - [facility] [employer] Start: 02-11-2025 End: 02-11-2025 ambulatory [facility] Facility:[facility] Start: 02-06-2025 End: 02-06-[address] Elgin Bal MD Work Phone: [facility] Work Phone: Start: 02-06-2025 End: 02-06-2025 Departed Referred Alfredo Phipps [facility] [employer] Start: 02-06-2025 Registered Referred Alfredo Shultzsaros - [facility] [employer] Start: 02-06-2025 End: 02-06-2025 ambulatory [facility] Facility:[facility] Start: 01-30-2025 End: 01-30-2025 Departed Referred Adam Ferraro [facility] [employer] Start: 01-30-2025 End: 01-30-2025 Orders Only Anthony Olivares MD Work Phone: [facility] [place] Start: 01-30-2025 Registered Referred Adam Ferraro [facility] [employer] Start: 01-30-2025 End: 01-30-2025 ambulatory Adam CHANDLER Facility:[facility] Start: 01-25-2025 End: 01-25-[address] Elgin Bal MD Work Phone: [facility] Work Phone: Start: 01-25-2025 End: 01-25-2025 Departed Referred Adam Ferraro -[facility] [employer] Start: 01-25-2025 End: 01-25-2025 ambulatory Adam CHANDLER Facility:[facility] Start: 01-03-2025 End: 01-03-[address] Elgin Bal MD Work Phone: [facility] Work Phone: Start: 01-03-2025 End: 01-03-2025 Departed Referred Adam Jasmine [facility] [employer] Start: 01-03-2025 Registered Referred Adam Jasmine [facility] [employer] Start: 01-02-2025 End: 01-03-[address] Elgin Bal MD Work Phone: [facility] Work Phone: Start: 01-02-2025 End: 01-02-2025 Departed Referred Adam Jasmine [facility] [employer] Start: 01-02-2025 Registered Referred Adam Gunmele [facility] [employer] Start: 01-02-2025 End: 01-02-2025 ambulatory [facility] Facility:[facility] Start: 12-28-2024 End: 12-28-[address] Elgin Bal MD Work Phone: [facility] Work Phone: Start: 12-28-2024 End: 12-28-2024 Departed Referred Adam Jasmine [facility] [employer] Start: 12-28-2024 End: 12-28-2024 ambulatory Adam CHANDLER Facility:[facility] Start: 11-27-2024 End: 11-27-2024 Departed Referred Adam Jasmine [facility] [employer] Start: 11-27-2024 End: 11-27-2024 ambulatory Adam CHANDLER Facility:[facility] Start: 11-20-2024 End: 11-23-2024 ambulatory Anthony Olivares MD Work Phone: [facility] [place] Start: 11-15-2024 End: 11-15-2024 Departed Referred Adam Gunning [facility] [employer] Start: 11-15-2024 End: 11-15-2024 ambulatory Elgin Mally Facility:[facility] Start: 09-27-2024 End: 09-27-2024 Departed Referred Adam Gunmele [facility] [employer] [facility] Start: 09-27-2024 End: 09-27-2024 ambulatory Elgin Mally Facility:[facility] Start: 09-14-2024 End: 09-14-2024 Patient encounter procedure Dorota Smith MD Work Phone: [facility] Comment on above: 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); Rash and nonspecific skin eruption; 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) Start: 09-14-2024 End: 09-14-2024 ambulatory ALFREDO PHIPPS Facility:[facility] Start: 09-12-2024 End: 09-12-2024 ambulatory Elgin Wilsonia Facility:[facility] Start: 08-27-2024 End: 08-27-2024 ambulatory Adam CHANDLER Facility:[facility] Start: 08-10-2024 ambulatory Alfredo CHANDLER Faci lity:[facility] Start: 08-09-2024 ambulatory ANTHONY OLIVARES Facility: [facility] Start: 08-09-2024 End: 08-09-2024 Subsequent hospital visit by physician Chair [facility] Work Phone: Infusion Center Comment on above: Rituximab Start: 07-31-2024 End: 07-31-2024 ambulatory Adam CHANDLER Facility:[facility] Start: 07-17-2024 End: 07-17-2024 Patient encounter procedure Anthony Olivares MD Work Phone: Kidney [facility] Comment on above: 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); Stage 3b chronic kidney disease (HCC); Benign hypertension with chronic kidney disease Start: 07-17-2024 End: 07-20-2024 ambulatory Anthony Olivares MD Work Phone: [facility] [place] Start: 06-29-2024 End: 06-29-2024 ambulatory Adam CHANDLER Facility:[facility] Start: 06-27-2024 End: 06-27-2024 ambulatory Alfredo CHANDLER Facility:[facility] Start: 06-22-2024 End: 06-22-2024 ambulatory Adam CHANDLER Facility:[facility] Start: 06-08-2024 End: 06-08-2024 ambulatory Adam CHANDLER Facility:[facility] Start: 05-28-2024 End: 05-28-2024 ambulatory Adam CHANDLER Facility:[facility] Start: 05-21-2024 Telephone encounter Dorota hameed MD Work Phone: [facility] Comment on above: No Show Start: 03-19-2024 Telephone encounter Ronny Polanco MD Work Phone: [facility] Start: 03-19-2024 End: 03-19-2024 Office outpatient visit 15 minutes Ronny Polanco MD Work Phone: [facility] Comment on above: Vasculitis (HCC) (Pr imary Dx); Stage 3b chronic kidney disease (HCC); 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); Benign hypertension with chronic kidney disease Start: 02-03-2024 End: 02-03-2024 ambulatory [facility] Work Phone: Start: 02-03-2024 End: 02-03-2024 [facility] Start: 01-26-2024 End: 01-26-2024 Subsequent hospital visit by physician Chair [facility] Work Phone: Infusion [facility] Comment on above: Rituximab Start: 01-06-2024 End: 01-06-2024 ambulatory [facility] Work Phone: Start: 01-06-2024 End: 01-06-2024 [facility] Start: 12-29-2023 Orders Only Babak Drummond RN [facility] Start: 12-27-2023 Orders Only Anthony Olivares MD Work Phone: [facility]ney [facility] Start: 12-23-2023 Telephone encounter Nuria noyola RN Kidney Medicine Comment on above: Appointment Start: 12-20-2023 ambulatory Anthony Olivares MD Work Phone: Kidney Medicine [facility] Start: 12-20-2023 End: 12-20-2023 Patient encounter procedure Anthony Olivares MD Work Phone: [facility] [place] Comment on above: 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); Stage 3b chronic kidney disease (HCC); Benign hypertension with chronic kidney disease Start: 12-09-2023 End: 12-09-2023 ambulatory [facility] Work Phone: Start: 12-09-2023 End: 12-09-2023 [facility] Start: 11-16-2023 End: 11-16-[address] [facility] Start: 11-16-2023 [facility] [facility] Start: 11-11-2023 End: 11-11-2023 ambulatory [facility] Work Phone: Start: 11-11-2023 End: 11-11-2023 [facility] [facility] Start: 11-11-2023 [facility] Start: 10-27-2023 End: 10-27-2023 ambulatory [facility] Work Phone: Start: 10-27-2023 End: 10-27-2023 [facility] Start: 10-14-2023 End: 10-14-2023 ambulatory [facility] Work Phone: Start: 10-14-2023 End: 10-14-2023 [facility] Start: 09-27-2023 End: 09-27-2023 ambulatory [facility] Work Phone: Start: 09-27-2023 End: 09-27-2023 [facility] Start: 09-27-2023 Registered Referred [facility] [employer] Start: 09-16-2023 End: 09-16-2023 ambulatory [facility] Work Phone: Start: 09-16-2023 End: 09-16-2023 [facility] Start: 08-29-2023 Telephone encounter Dorota hameed MD Work Phone: [facility] Comment on above: Patient Update Start: 08-26-2023 Telephone encounter Luz Daniel MD Work Phone: [facility] [place] Comment on above: NO SHOW Start: 08-19-2023 End: 08-19-2023 ambulatory [facility] Work Phone: Start: 08-19-2023 End: 08-19-2023 [facility] Start: 07-28-2023 End: 07-28-2023 [facility] Start: 07-28-2023 [facility] Start: 07-24-2023 [facility] Start: 07-22-2023 End: 07-22-2023 ambulatory [facility] Work Phone: Start: 07-22-2023 End: 07-22-2023 [facility] Start: 06-24-2023 End: 06-24-2023 ambulatory [facility] Work Phone: Start: 06-24-2023 End: 06-24-2023 [facility] Start: 06-24-2023 [facility] Start: 05-30-2023 End: 05-30-2023 ambulatory [facility] Work Phone: Start: 05-30-2023 End: 05-30-2023 [facility] [facility] Start: 05-30-2023 [facility] Start: 05-27-2023 End: 05-27-2023 ambulatory [facility] Work Phone: Start: 05-27-2023 End: 05-27-2023 [facility] Start: 05-27-2023 [facility] Start: 05-19-2023 End: 05-19-2023 ambulatory [facility] Work Phone: Start: 05-19-2023 End: 05-19-2023 [facility] Start: 05-19-2023 [facility] Start: 04-29-2023 End: 04-29-2023 ambulatory [facility] Work Phone: Start: 04-29-2023 End: 04-29-2023 [facility] [facility] Start: 04-29-2023 [facility] Start: 04-27-2023 End: 04-27-2023 ambulatory [facility] Work Phone: Start: 04-27-2023 End: 04-27-2023 [facility] Start: 04-04-2023 End: 04-04-2023 [facility] Start: 04-01-2023 End: 04-01-2023 [facility] Start: 03-04-2023 End: 03-04-2023 ambulatory [facility] Work Phone: Start: 03-04-2023 End: 03-04-2023 [facility] [facility] Start: 02-25-2023 End: 02-25-2023 Patient encounter procedure Luz Daniel MD Work Phone: [facility] [place] Comment on above: Rheumatoid arthritis involving both hands 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 rheumatoid factor (HCC) (Primary Dx); 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) Start: 02-25-2023 End: 02-25-2023 ambulatory [facility] Work Phone: Start: 02-25-2023 End: 02-25-2023 [facility] Start: 02-04-2023 End: 02-04-2023 ambulatory [facility] Work Phone: Start: 02-04-2023 End: 02-04-2023 [facility] Start: 02-04-2023 [facility] Start: 01-25-2023 End: 01-25-2023 ambulatory [facility] Work Phone: Start: 01-25-2023 End: 01-25-2023 [facility]ed [facility] Start: 01-25-2023 [facility]istered [facility] Start: 01-19-2023 End: 01-19-2023 [facility]ed [facility] Start: 01-19-2023 [facility] Start: 01-07-2023 End: 01-07-2023 ambulatory [facility] Work Phone: Start: 01-07-2023 End: 01-07-2023 [facility]ed [facility] Start: 01-07-2023 [facility] Start: 12-28-2022 End: 12-28-2022 ambulatory [facility] Work Phone: Start: 12-28-2022 End: 12-28-2022 [facility]ed [facility] Start: 12-28-2022 Registered [facility] Start: 12-15-2022 End: 12-15-2022 [facility]ed [facility] Start: 12-15-2022 Registered Referred [facility] Start: 12-10-2022 End: 12-10-2022 ambulatory [facility] Work Phone: Start: 12-10-2022 End: 12-10-2022 [facility]ed [facility] Start: 11-17-2022 End: 11-17-2022 ambulatory [facility] Work Phone: Start: 11-17-2022 End: 11-17-2022 [facility]ed [facility] Start: 11-17-2022 Registered Referred [facility] [employer] Start: 11-12-2022 End: 11-12-2022 [facility]ed [facility] Start: 11-12-2022 [facility] Start: 11-03-2022 End: 11-03-2022 Patient encounter procedure Kidney Med Main Infusion Chair 1 Kidney Medicine Comment on above: 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) Start: 11-02-2022 Orders Only Adam Tee MD Work Phone: [facility] Main [place] Comment on above: 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) Start: 10-27-2022 End: 10-27-2022 ambulatory [facility] Work Phone: Start: 10-27-2022 End: 10-27-2022 [facility]ed [facility] Start: 10-27-2022 [facility]istered [facility] Start: 10-15-2022 End: 10-15-2022 Departed Referred [facility] [employer] Start: 10-15-2022 Registered Referred [facility] Start: 09-27-2022 End: 09-27-2022 ambulatory [facility] Work Phone: Start: 09-27-2022 End: 09-27-2022 [facility]ed [facility] Start: 09-27-2022 Registered [facility] Start: 09-17-2022 End: 09-17-2022 ambulatory [facility] Work Phone: Start: 09-17-2022 End: 09-17-2022 [facility]ed [facility] Start: 09-17-2022 Registered [facility] Start: 08-27-2022 End: 08-27-2022 Patient encounter procedure Luz Daniel MD Work Phone: [facility] [place] Comment on above: Rheumatoid arthritis involving both hands 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 rheumatoid factor (HCC) (Primary Dx) Start: 08-27-2022 End: 08-27-2022 [facility]ed [facility] Start: 08-27-2022 Registered [facility] Start: 08-23-2022 End: 08-23-2022 ambulatory [facility] Work Phone: Start: 08-23-2022 End: 08-23-2022 [facility]ed [facility] Start: 08-23-2022 Registered [facility] Start: 08-12-2022 End: 08-12-2022 ambulatory [facility] Work Phone: Start: 08-12-2022 End: 08-12-2022 [facility]arted [facility] Start: 07-28-2022 End: 07-28-2022 ambulatory [facility] Work Phone: Start: 07-28-2022 End: 07-28-2022 [facility]arted [facility] Start: 07-28-2022 Registered Referred [facility] [employer] Start: 07-27-2022 End: 07-27-2022 Patient encounter procedure Anthony Olivares MD Work Phone: [facility] [place] Comment on above: 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); Stage 3a chronic kidney disease (HCC) Start: 07-27-2022 ambulatory Anthony Olivares MD Work Phone: [facility] [place] Start: 07-15-2022 End: 07-15-2022 ambulatory [facility] Work Phone: Start: 07-15-2022 End: 07-15-2022 Departed Referred [facility] [employer] Start: 07-15-2022 Registered Referred [facility] [employer] Start: 06-28-2022 End: 06-28-2022 ambulatory [facility] Work Phone: Start: 06-28-2022 End: 06-28-2022 Departed Referred [facility] [employer] Start: 06-28-2022 Registered Referred [facility] [employer] Start: 06-17-2022 End: 06-17-2022 ambulatory [facility] Work Phone: Start: 06-17-2022 End: 06-17-2022 Departed Referred [facility] [employer] Start: 05-27-2022 End: 05-27-2022 [facility]arted [facility] Start: 05-20-2022 End: 05-20-2022 Departed Referred [facility] [employer] Start: 05-05-2022 Patient encounter procedure Anthony Olivares MD Work Phone: [facility] [place] Comment on above: Granulomatosis with polyangiitis with [...] 04-27-2022 End: 04-27-2022 Departed [facility] [employer] Start: 04-27-2022 Registered Referred [facility] [employer] Start: 04-22-2022 End: 04-22-2022 Departed [facility] [employer] Start: 04-22-2022 Registered Referred [facility] [employer] Start: 04-21-2022 End: 04-21-2022 Departed [facility]erred [facility] [employer] Start: 04-21-2022 Registered Referred [facility] [employer] Start: 04-06-2022 End: 04-06-2022 Departed Referred [facility] [employer] Start: 04-06-2022 Registered Referred [facility] [employer] Start: 04-05-2022 End: 04-05-2022 Departed [facility] [employer] Start: 04-05-2022 Registered Referred [facility] [employer] Start: 04-02-2022 End: 04-02-2022 Departed [facility] [employer] Start: 04-02-2022 Registered Referred [facility] [employer] Start: 03-30-2022 Orders Only Anthony Olivares MD Work Phone: [facility] Main [place] Comment on above: Granulomatosis with polyangiitis, unspecified whether renal involvement (HCC) (Primary Dx) Start: 03-25-2022 End: 03-25-2022 Departed Referred [facility] [employer] Start: 03-25-2022 Registered [facility] Start: 03-19-2022 End: 03-19-2022 Departed [facility] Start: 03-19-2022 Registered [facility] Start: 02-25-2022 End: 02-25-2022 Departed [facility] Start: 02-25-2022 [facility] Start: 02-18-2022 End: 02-18-2022 [facility]arted [facility] Start: 01-28-2022 End: 01-28-2022 Departed [facility] Start: 01-28-2022 Registered [facility] Start: 01-25-2022 End: 01-25-2022 Departed [facility] Start: 01-25-2022 Registered [facility] Start: 01-04-2022 End: 01-04-2022 Departed [facility] Start: 01-04-2022 Registered [facility] Start: 12-07-2021 End: 12-07-2021 Departed [facility] Start: 12-03-2021 Registered [facility] Start: 11-09-2021 Registered [facility] Start: 11-05-2021 Registered [facility] Start: 10-28-2020 End: 11-04-2020 Evaluation and management of inpatient Otf Long Work Phone: [facility] Comment on above: Pneumonia due to COV ID-19 virus (Primary Dx); Hypoxia; Hypokalemia; Stage 3 chronic kidney disease, unspecified whether stage 3a or 3b CKD Start: 11-14-2019 Encounter for genera l adult medical examination without abnormal findings [facility] Start: 11-14-2019 End: 08-05-2020 Patient encounter procedure HODA BROWNING [facility] Start: 08-06-2019 End: 08-06-2019 Patient encounter procedure HODA BROWNING [facility] Start: 10-21-2009 End: 01-29-2013 Patient encounter status Ronny Polanco MD Work Phone: [facility] Encounter for genera l adult medical examination without abnormal findings [facility] Procedures Date Procedure Procedure Detail Performing Clinician Start: 05-02-[address] Elgin Bal MD Work Phone: Start: 04-24-[address] Elgin Bal MD Work Phone: Start: 04-24-2025 Serum inorganic phos phate measurement Dr. Elgin Bal MD Work Phone: Start: 04-01-[address] Elgin Bal MD Work Phone: Start: 02-27-[address] Elgin Bal MD Work Phone: Start: 01-30-[address] Elgin Bal MD Work Phone: Start: 01-03-[address] Elgin Bal MD Work Phone: Start: 01-03-2025 Urine microalbumin/creatinine ratio measurement Dr. Elgin Bal MD Work Phone: Comment on above: Test not performed Start: 01-02-2025 Assay of phosphorus inorganic Dr. Elgin Bal MD Work Phone: Start: 01-02-[address] Elgin Bal MD Work Phone: Start: 01-02-2025 Measurement of renal function Dr. Elgin Bal MD Work Phone: Comment on above: GFR Calc Start: 12-28-2024 Measurement of renal function Dr. Elign Bal MD Work Phone: Comment on above: [...] Start: 11-02-2020 Fibrinogen activity Imo la K [employer] Work Phone: Start: 11-02-2020 Lactate dehydrogenase ldh Imola K Osapay Work Phone: Start: 11-02-2020 Thromboplastin time partial plasma/whole blood Imola K [employer] Work Phone: Start: 11-01-2020 Assay of ferritin Imola K [employer] Work Phone: Start: 11-01-2020 Blood count complete auto&auto difrntl wbc Imola K [employer] Work Phone: Start: 11-01-2020 C-reactive protein Imol a K [employer] Work Phone: Start: 11-01-2020 Fibrin dgradj produc [...] 10-29-2020 Blood count complete automated Imola K [employer] Work Phone: Start: 10-29-2020 Drug screen quantita tive lithium Farrukh K Emily Work Phone: Start: 10-29-2020 Fibrin dgradj produc ts d-dimer quantitative Imola K [employer] Work Phone: Start: 10-29-2020 Fibrinogen activity Imo la K [employer]pacand[employer] Work Phone: Start: 10-29-2020 Thromboplastin time partial plasma/whole blood Imola K Patrickpacandido Work Phone: Start: 10-29-2020 25 hydroxy includes fractions if performed Imola K Emily Work Phone: Start: 10-29-2020 Assay of ferritin Farrukh K Dataheroradha Work Phone: Start: 10-29-2020 Blood count complete auto&auto difrntl wbc Immayra K Emily Work Phone: Start: 10-29-2020 C-reactive protein Imol a K mEily Work Phone: Start: 10-29-2020 Fibrin dgradj produc ts d-dimer quantitative Imola K [employer]pacandido Work Phone: Start: 10-29-2020 Fibrinogen activity Imo la K [employer]pacand[employer] Work Phone: Start: 10-29-2020 Lactate dehydrogenase ldh Imola K [employer] Work Phone: Start: 10-29-2020 Procalcitonin (pct) Imo la K [employer]pac[employer] Work Phone: Start: 10-28-2020 Urnls dip stick/tabl et rgnt auto w/o microscopy Andrew Silver Work Phone: Start: 10-28-2020 POCT ARTERIAL Tof A G ombash Work Phone: Start: 10-28-2020 Assay of lactate [...] RESPIRATORY PANEL, MOLECULAR, WITH COVID-19 Imola K Osapacandido Work Phone: Start: 05-05-2020 Urinalysis HODA WYATT Comment on above: Result Comment: URIN ALYSIS Performed By: #### [id number] #### [place] [address] Start: 04-08-2020 Urinalysis HODA WYATT Comment on above: Result Comment: URIN ALYSIS Performed By: #### 2 [id number] #### [place] [address] Start: 02-04-2020 Urinalysis HODA WYATT Comment on above: Result Comment: URIN ALYSIS Performed By: #### [id number] #### [facility],[address] [place] [address] Start: 01-07-2020 Urinalysis HODA WYATT Comment on above: Result Comment: URIN ALYSIS Performed By: #### 2 [id number] #### [facility],[address] [place] [address] Start: 12-10-2019 Urinalysis HODA WYATT Comment on above: Result Comment: URIN ALYSIS Performed By: #### 2 [id number] #### [facility],[address] [place] [address] Start: 11-05-2019 Urinalysis HODA WYATT Comment on above: Result Comment: URIN ALYSIS Performed By: #### 2 [id number] #### [facility],[address] [place] [address] Start: 10-08-2019 Urinalysis HODA WYATT Comment on above: Result Comment: URIN ALYSIS Performed By: #### 2 [id number] #### [facility],[address] [place] [address] Start: 09-10-2019 Urinalysis HODA WYATT Comment on above: Result Comment: URIN ALYSIS Performed By: #### 2 [id number] #### [place] [address] Start: 08-10-2019 Adult depression scr eening assessment Anthony Olivares MD Work Phone: Start: 08-06-2019 Urinalysis HODA WYATT Comment on above: Result Comment: URIN ALYSIS Performed By: #### 2 [id number] #### [place] [address] Start: 07-23-2019 Colonoscopy Anthony rosa MD Work Phone: Start: 08-09-2018 Lipid 1996 panel - S ellen or Plasma Luz Daniel MD Work Phone: Urine culture Urine culture Plan of Treatment Date Care Activity Detail Author Start: 12-20-2028 Lipid panel Lipid Screening [facility] Start: 12-20-2026 Diabetes Screening Diabetes Screenin g [facility] Start: 09-16-2025 End: 09-16-2025 Patient encounter procedure 09/16/2025 9:00 AM EST Office Visit [facility] [place] [facility] [address] [place], [place] [phone] Dorota Smith MD [address] [place], [place] [address] 6 months in office PA [facility] Comment on above: 6 months in office P A Start: 09-14-2025 BP Controlled (<130/80) BP Controlle d (<130/80) [facility] Start: 08-15-2025 End: 08-15-2025 Patient encounter procedure 08/15/2025 2:20 PM EDT Office Visit [facility] [place] [address] [place] [address] Anthony Olivares MD [address] [place] [address] f/u [facility] [place] Comment on above: f/u Start: 07-17-2025 BP Controlled (<130/80) BP Controlle d (<130/80) [facility] Start: 07-15-2025 Influenza vaccination Influenza Vacc ine (#1) [facility] Start: 05-23-2025 End: 05-23-2025 Patient encounter procedure 05/23/2025 4:00 PM EDT Office Visit [facility] [place] [address] [place] [address] Anthony Olivares MD [address] [place] [address] Virtual f/u per Dr Olivares.I spoke with Nursing Facility where patient is at [facility] [place] Comment on above: Virtual f/u per Dr Leonie herrera.I spoke with Nursing Facility where patient is at Start: 03-20-2025 End: 03-20-2025 Patient encounter procedure 03/20/2025 9:00 AM EDT Office Visit [facility] [place] [address] [place], [place] [phone] Leeann Lopez PA-C [address] [place], [place] [id number] 6 months in office PA [facility] Comment on above: 6 months in office P A Start: 02-26-2025 End: 02-26-2025 Patient encounter procedure 02/26/2025 9:00 AM EDT Appointment Infusion Center [address] [place] [id number] [address] Ignacio Jack, granulomatosis, () Infusion Center Comment on above: Dr Ignacio Jack, granulomatosis, () Start: 02-20-2025 Covid-19 Vaccine (9 - Pfizer risk ) Covid-19 Vaccine (9 - Pfizer risk ) [facility] Start: 12-20-2024 BP Controlled (<130/80) BP Controlle d (<130/80) [facility] Start: 12-20-2024 Complete blood count Hemoglobin/Timo tocrit [facility] Start: 12-20-2024 Creatinine measurement Serum Creatin ine [facility] Start: 11-20-2024 End: 11-20-2024 Patient encounter procedure 11/20/2024 11:00 AM EST Office Visit Kidney [facility] [address] [place] [address] Anthony Olivares MD [address] [place] [address] follow up in October per Dr Olivares [facility] Comment on above: follow up in per Dr Olivares Start: 11-14-2024 Medicare Advantage Annual Wellness Visit Medicare Advantage Annual Wellness Visit [facility] Start: 10-17-2024 Covid-19 Vaccine () Covid-19 Vaccine () [facility] Start: 09-14-2024 End: 09-14-2024 Patient encounter procedure 09/14/2024 9:00 AM EDT Office Visit [facility] [place] [facility] [address] [facility] [address] [place], [place] [phone] Dorota Smith MD [address] [facility] [address] [place], [place] [phone] RA/Trans [facility] Comment on above: RA/Trans from Dr Ruben welsh to Yovani Start: 08-09-2024 End: 08-09-2024 Patient encounter procedure 08/09/2024 7:00 AM EDT Appointment Infusion Center [address] [place] [id number] rituximab [id number].ignacio Quintanilla(RK) Infusion Center Comment on above: rituximab M32.30 ignacio(RK) Start: 07-17-2024 End: 07-17-2024 Patient encounter procedure 07/17/2024 11:20 AM EDT Office Visit Kidney [facility] [address] [place] [address] Anthony Olivares MD [address] [place], [place] [phone] Vasculitis Renal follow up [facility] [place] Comment on above: Vasculitis Renal fol low up Start: 07-15-2024 Covid-19 Vaccine ( season) Covid-19 Vaccine ( season) [facility] Start: 07-15-2024 Covid-19 Vaccine ( season) Covid-19 Vaccine ( season) [facility] Start: 07-15-2024 Influenza vaccination Influenza Vacc ine (#1) [facility] Start: 05-21-2024 End: 05-21-2024 Patient encounter procedure 05/21/2024 9:20 AM EDT [facility] [address] [facility] [address] [place], [place] [phone] Dorota Smith MD [address] [facility] [address] [place] [address] RA/Trans [facility] Daniel [facility] Comment on above: RA/Trans from Dr Ruben welsh to Yovani Start: 03-09-2024 Lipid panel Lipid Screening [facility] Start: 02-21-2024 PROSTATE CANCER SCREENING DISCUSSION PROSTATE CANCER SCREENING DISCUSSION [facility] Start: 02-21-2024 Prostate specific antigen measurement Prostate Cancer Screening Discussion [facility] Start: 12-20-2023 End: 03-20-2024 25-hydroxyvitamin D3 [Mass/volume] in Serum or Plasma [facility] Work Phone: Comment on above: Expected: 12/20/2023 , Expires: 03/20/2024 Start: 12-12-2023 Covid-19 Vaccine ( season) Covid-19 Vaccine () [facility] Start: 11-14-2023 Behavioral Health Screening Behavioral Health Screening [facility] Start: 11-14-2023 Depression Assessment Depression Ass [facility] Start: 11-04-2023 Diabetes Screening Diabetes Screenin g [facility] Start: 11-03-2023 BP CONTROLLED (<130/80) BP CONTROLLE D (<130/80) [facility] Start: 09-18-2023 DIABETES SCREEN DIABETES SCREEN [facility] Start: 09-18-2023 Diabetes Screening Diabetes Screenin [facility] Start: 08-09-2023 Lipid 1996 panel - S ellen or Plasma Lipid Screening [facility] Start: 08-09-2023 LIPID SCREEN LIPID SCREEN [facility] Start: 07-15-2023 Covid-19 Vaccine ( season) Covid-19 Vaccine ( season) [facility] Start: 07-15-2023 Influenza vaccination [facility] Start: 2023 RSV Vaccine (1 - 1-d ose 60+ series) RSV Vaccine (1 - 1-dose 60+ series) [facility] Start: 2023 RSV Vaccine (1 - Ris k 60-74 years 1-dose series) RSV Vaccine (1 - Risk 60-74 years 1-dose series) [facility] Start: 11-14-2022 DEPRESSION ASSESSMENT DEPRESSION ASS [facility] Start: 11-03-2022 End: 11-03-2023 Chronic hepatitis differentiation between hepatitis B and C virus panel - Serum or Plasma HEP REMOTE PANEL BL Lab Routine 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) Expected: 11/03/2022, Expires: 11/03/2023 [facility] Work Phone: Comment on above: Expected: 11/03/2022 , Expires: 11/03/2023 Start: 07-23-2022 Colonoscopy COLONOSCOPY [facility] Start: 07-23-2022 COLORECTAL CANCER SCREENING COLORECTAL CANCER SCREENING [facility] Start: 07-23-2022 Screening for malign ant neoplasm of colon [facility] Start: 07-15-2022 Influenza vaccination INFLUENZA (#1) [facility] Start: 04-29-2022 COVID-19 VACCINE (6 - Booster for Pfizer series) COVID-19 VACCINE (6 - Booster for Pfizer series) [facility] Start: 01-04-2022 COVID-19 VACCINE (5 - Booster for Pfizer series) COVID-19 VACCINE (5 - Booster for Pfizer series) [facility] Start: 11-14-2021 DEPRESSION ASSESSMENT DEPRESSION ASS ESSMENT [facility] Start: 11-04-2021 Creatinine measurement [facility] Start: 11-04-2021 Potassium [facility] Start: 11-02-2021 HEMOGLOBIN/HEMATOCRIT HEMOGLOBIN/HEM ATOCRIT [facility] Start: 09-18-2021 SERUM CREATININE SERUM CREATININE Cl [facility] Start: 11-09-2020 Influenza vaccination LUNG CANCER SC REENING [facility] Start: 11-09-2020 Screening for malign ant neoplasm of lung Lung Cancer Screening [facility] Start: 08-10-2020 Adult depression screening assessment DEPRESSION SCREENING [facility] Start: 07-15-2020 Influenza vaccination Flu vaccine (# 1) [facility] Start: 02-21-2020 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 DIPTI DISEASE VISIT ANNUAL PCP TEAM CHRONIC DISEASE VISIT [facility] Start: 07-10-2019 PNEUMOCOCCAL (3 - PP SV23 if available, else PCV20) PNEUMOCOCCAL (3 - PPSV23 if available, else PCV20) [facility] Start: 07-10-2019 PNEUMOCOCCAL (3 - PP SV23 or PCV20) PNEUMOCOCCAL (3 - PPSV23 or PCV20) [facility] Start: 07-10-2019 Pneumococcal vaccination Pneum ococcal Vaccine (3 - PPSV23 or PCV20) [facility] Start: 09-04-2018 Pneumococcal vaccination Pneum ococcal Vaccine (3 of 3 - PPSV23 or PCV20) [facility] [facility] Start: 08-16-2014 TWO PNEUMOVAX 5 YEAR S APART PRIOR TO AGE 63 (#2) TWO PNEUMOVAX 5 YEARS APART PRIOR TO AGE 63 (#2) [facility] Start: 2013 SHINGRIX VACCINE (1 of 2) SHINGRIX VACCINE (1 of 2) [facility] Start: 2008 COLOGUARD (FIT-DNA) COLOGUARD (FIT-D NA) [facility] Start: [address] [facility] Start: 2008 FECAL OCCULT BLOOD FECAL OCCULT BLOO D [facility] Start: 2008 Screening for malign ant neoplasm of colon [facility] Start: 2008 SIGMOIDOSCOPY SIGMOIDOSCOPY [facility] Start: 1982 SHINGRIX VACCINE (1 of 2) SHINGRIX VACCINE (1 of 2) [facility] Start: 1982 Urine microalbumin profile [facility] Start: 1981 Annual PCP Team Certified Dialysis Technician dipti Disease Visit Annual PCP Team Chronic Disease Visit [facility] Start: 1981 Anxiety Screening Anxiety Screening [facility] Start: 1981 BP CONTROLLED (<130/80) BP CONTROLLE D (<130/80) [facility] Start: 1981 Depression Screening Depression Scre ening [facility] CBC Auto Differential CBC Auto D ifferential Lab Routine Daily until discontinued starting 11/03/2020, 2 [facility] [place] Comment on above: Daily until disconti nued starting 11/03/2020, 2 completed End: 12-19-2024 CBC W Auto Differential panel - Blood CBC + DIFF Lab Routine Stage 3b chronic kidney disease (HCC) 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) Once per month for 13 Occurrences starting 12/20/2023 until 12/19/2024, 1 completed [facility] Work Phone: Comment on above: Once per month for 1 3 Occurrences starting 12/20/2023 until 12/19/2024, 1 completed End: 05-23-2026 CBC W Auto Differential panel - Blood COMPLETE BLOOD COUNT AND DIFFERENTIAL Lab Routine 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) Every 2 months for 7 Occurrences starting 05/23/2025 until 05/23/2026 [facility] Comment on above: Every 2 months for 7 Occurrences starting 05/23/2025 until 05/23/2026 End: 12-19-2024 Comprehensive metabolic 2000 panel - Serum or Plasma COMP METABOLIC PANEL Lab Routine Stage 3b chronic kidney disease (HCC) 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) Once per month for 13 Occurrences starting 12/20/2023 until 12/19/2024, 1 completed [facility] Work Phone: Comment on above: Once per month for 1 3 Occurrences starting 12/20/2023 until 12/19/2024, 1 completed End: 05-23-2026 Comprehensive metabolic 2000 panel - Serum or Plasma COMPREHENSIVE METABOLIC PANEL Lab Routine 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) Every 2 months for 7 Occurrences starting 05/23/2025 until 05/23/2026 [facility] Work Phone: Comment on above: Every 2 months for 7 Occurrences starting 05/23/2025 until 05/23/2026 Comprehensive Metabo lic Panel w/ Reflex to MG Comprehensive Metabolic Panel w/ Reflex to MG Lab Routine Daily until discontinued starting 10/28/2020, 7 completed [facility], [place] Comment on above: Daily until disconti nued starting 10/28/2020, 7 completed Nasal Cannula Oxygen Nasal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 dise ase with esophagitis 04/27/2018 07/10/2018 Overview: Added automatically from request for surgery [id number] Stage 4 chronic renal impair ment associated [...] this encounter (statuses as of 01/26/2024) [facility] History of Past illness Narrative* Problem Noted Date Diagnosed Date Resolved Date Encephalopathy 08/16/2019 08/23/2019 Last Assessment & Plan: POA Assessment: 54 year old male who was referred by Dr. Aissatou Culp [[facility]] for diagnosis of events. No typical events during the admission. PLAN: - Do not restart VPA Convulsions 08/10/2019 08/23/2019 Last Assessment & Plan: Gastroesophageal reflux dise ase with esophagitis 04/27/2018 07/10/2018 Overview: Added automatically from request for surgery [id number] Stage 4 chronic renal impair ment associated [...] of this encounter (statuses as of 01/27/2024) [facility] noteNo assessment information availableWMagruder Hospital Work Phone: Evaluation note* Diagnosis Granulomatosis with polyangiitis, unspecified whether renal involvement (HCC)- Primary documented in this encounter [facility] note* Diagnosis 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 Vasculitis (HCC) Arteritis, unspecified [facility] Rheumatoid arthritis involving both hands 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 rheumatoid factor (HCC) Chronic pain of right [facility] Diagnosis Screening for genitourinary condition [...] chronic kidney disease [facility] [place] [facility] Diagnosis Screening for genitourinary condition Screening for other and unspecified genitourinary condition [facility] Diagnosis 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 [facility] Diagnosis Vasculitis (HCC)- Primary Arteritis, unspecified Stage 3b chronic kidney disease (HCC) 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) Benign hypertension with chronic kidney disease [facility] Diagnosis Granulomatosis with polyangiitis with [...] chronic kidney disease documented in this encounter [facility] note* Diagnosis Granulomatosis with polyangiitis [...] unspecified genitourinary condition documented in this encounter [facility] note* Diagnosis Granulomatosis with polyangiitis [...] involvement (HCC)- Primary documented in this encounter [facility] note* Diagnosis Granulomatosis with polyangiitis [...] therapy (HCC) (HCC) documented in this encounter [facility] note* Diagnosis Granulomatosis with polyangiitis [...] unspecified genitourinary condition documented in this encounter [facility] note* Diagnosis Granulomatosis with polyangiitis [...] involvement (HCC)- Primary documented in this encounter [facility] note* Diagnosis Granulomatosis with polyangiitis [...] involvement (HCC)- Primary documented in this encounter [facility] note* Diagnosis Granulomatosis with polyangiitis [...] kidney disease (HCC) [facility] Diagnosis Granulomatosis with polyangiitis with renal [...] unspecified genitourinary condition [facility] Diagnostic Procedure Only (Routine) - Closed Specialty Diagnoses / Procedures Referred By Contac t Referred To Contact XR IMAGING Diagnoses Chronic pain of right knee Procedures XR KNEE LIMITED 2V AP/LAT RIGHT RADIOLOGIC EXAMINATION KNEE 1/2 VIEWS Luz Daniel MD [address] [place] [address] Xr Imaging Referral ID Status Reason Start Date Expiration Date V isits Requested Visits Authorized [id number] Closed Auto-Generate d Referral 02/26/2022 03/28/2023 1 1 * Diagnostic Procedure Only (Routine) - Closed Specialty Diagnoses / Procedures Referred By Contac t Referred To Contact XR IMAGING Diagnoses Rheumatoid arthritis involving both hands 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 rheumatoid factor (HCC) Procedures XR FOOT GENERAL 3V AP/LAT/OBL RIGHT RADEX FOOT COMPLETE MINIMUM 3 VIEWS Luz Daniel MD [address] [place] [id number] Xr Imaging Referral ID Status Reason Start Date Expiration Date V isits Requested Visits Authorized [id number] Closed Auto-Generate d Referral 02/26/2022 03/28/2023 1 1 * Diagnostic Procedure Only (Routine) - Closed Specialty Diagnoses / Procedures Referred By Contac t Referred To Contact XR IMAGING Diagnoses Rheumatoid arthritis involving both hands 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 rheumatoid factor (HCC) Procedures XR FOOT GENERAL 3V AP/LAT/OBL LEFT RADEX FOOT COMPLETE MINIMUM 3 VIEWS Luz Daniel MD [address] [place] [address] Xr Imaging Referral ID Status Reason Start Date Expiration Date V isits Requested Visits Authorized [id number] Closed Auto-Generate d Referral 02/26/2022 03/28/2023 1 1 * Diagnostic Procedure Only (Routine) - Closed Specialty Diagnoses / Procedures Referred By Contac t Referred To Contact XR IMAGING Diagnoses Rheumatoid arthritis involving both hands 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 rheumatoid factor (HCC) Procedures XR HAND GENERAL 3V PA/LAT/OBL RIGHT RADEX HAND MINIMUM 3 VIEWS Luz Daniel MD [address] [place] [address] Xr Imaging Referral ID Status Reason Start Date Expiration Date V isits Requested Visits Authorized [id number] Closed Auto-Generate d Referral 02/26/2022 03/28/2023 1 1 * Diagnostic Procedure Only (Routine) - Closed Specialty Diagnoses / Procedures Referred By Contac t Referred To Contact XR IMAGING Diagnoses Rheumatoid arthritis involving both hands 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 rheumatoid factor (HCC) Procedures XR HAND GENERAL 3V PA/LAT/OBL LEFT RADEX HAND MINIMUM 3 VIEWS Luz Daniel MD [address] [place] [address] Xr Imaging Referral ID Status Reason Start Date Expiration Date V isits Requested Visits Authorized [id number] Closed Auto-Generate d Referral 02/26/2022 03/28/2023 1 1 [facility])No reason for referral information availableWMagruder Hospital Work Phone: Reason for visit Narrative* [place] Prior Authorization (Routine) - Authorized Specialty Diagnoses / Procedures Referred By Contac t Referred To Contact Diagnoses 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) Procedures INJ RUXIENCE, 10 MG Anthony Olivares MD [address] [place] [address] Phone: tel: fax: Anthony Olivares MD [address] [place] [address] Phone: tel: fax: Referral ID Status Reason Start Date Expiration Date V isits Requested Visits Authorized [id number] Authorized 01/30/2025 01/31/2026 2 2 [facility] Summary Purpose Family History No Family History [...] Response Recorded Date/ Time Advance Directives No July, 2015 1:38am Living Will No March 02, 2019 1:12pm Power of Television Engineer No March 02 1:12pm Documents on File Type Date Recorded Patient Environmental Restoration Planner Expl anation Advance Directive(s) 08/17/2019 7:16 PM Advance Directive(s) 08/14/2019 9:32 AM Advance Directive(s) 07/23/2019 12:21 PM Advance Directive(s) 01/05/2019 9:49 AM Advance Directive(s) 06/12/2018 10:01 AM Advance Directive(s) 08/24/2016 10:32 PM Advance Directive(s) 08/11/2016 2:31 PM Documents on File Type Date Recorded Patient Environmental Restoration Planner Expl anation Advance Directive(s) 08/17/2019 7:16 PM Advance Directive(s) 08/14/2019 9:32 AM Advance Directive(s) 07/23/2019 12:21 PM Advance Directive(s) 01/05/2019 9:49 AM Advance Directive(s) 06/12/2018 10:01 AM Advance Directive(s) 08/24/2016 10:32 PM Advance Directive(s) 08/11/2016 2:31 PM Advance Directive Response Recorded Date/ Time Advance Directives No July 12:38am Living Will No March 02, 2019 12:12pm Power of Television Engineer No March 02 12:12pm Advance Directive Response Recorded Date/ Time Advance Directives No July 12:38am Advance Directive Response Recorded Date/ Time Advance Directives No July 1:38am Hospital Course Note Hospitalist Discharge Summar candido León : 1965 Admit date: 10/28/2020 Discharge [...] [facility] had a positive COVID19 test (more [...] 10/28/20 0000 -- -- -- Aminah León [phone] Admitting Physician: Farrukh Diaz MD PCP: No primary care provider on file. Discharging Nurse: [facility] Unit/Room#: 468/4681 Discharging Unit Phone Number: [phone] Emergency Contact: No emergency contact information on [...] Casillas RN 11/05/20 11/12/20 10/14/2020 Documentation in [place] Disease Reporting System of positive COVID - [...] Assisted Dressing Assisted Toileting Independent Feeding Independent Hand Mica Plate Layer Assisted Med Delivery whole Wound Care Documentation [...] Readmission: 20 Discharging to Facility/ Agency Name: [facility] Address: [address] [place] [address] Dialysis Facility (if applicable) Name: Address: Dialysis Schedule: Phone: Fax: Drop Hammer Setter Up/Mannequin Decorator signature: at12:24 PM EST PHYSICIAN SECTION Prognosis: [...] PM EST Report given to Yesenia at [place]. * Amaris Ibrahim RCP - 11/04/2020 12:15 PM EST [facility] Respiratory Care Department Progress Note SpO2 at [...] Daniel MD - 11/03/2020 6:05 PM EST [facility] Progress Note Subjective/ 55 [...] 600 mg 600 mg Oral Nightly Farrukh iDaz MD 600 mg at 11/02/202009 Data/ Recent Labs 11/02/2031611/03/20235 WBC 13.0* 15.6* HGB 13.2 12.8* HCT 39.5* 39.0* MCV 87.8 87.6 PLT 340 332 Recent Labs 11/01/2023411/02/2031611/03/20235 NA 137 137 134* [...] in remission from renal perspective. No urgent MUD BOSS indications. Will follow. [facility] * Farrukh Diaz MD - 11/03/2020 1:09 PM EST Hospitalist Progress Note 11/03/2020 1:09 PM [phone]: Please page wy [phone] for patient care issues. [phone]: Please page [facility] night Hospitalist for any issues. Subjective: [...] of Hospitalist Medicine Inpatient Medical Services PAGER: [phone] * Piyush Daniel MD - 11/02/2020 10:00 PM EST [facility] Progress Note Subjective/ 55 [...] per day Farrukh Diaz MD 10mL at 11/02/20 2011 sodium chloride flush 0.9 % injection 10 [...] Daily Farrukh Diaz MD 100 mg at 11/02/20808 lithium capsule 300 mg 300 mg Oral Nightly Farrukh Diaz MD 300 mg at 11/02/202009 cetirizine (ZYRTEC) tablet 5 mg 5 mg Oral Daily Farrukh Diaz MD 5 mg at 11/02/20809 melatonin tablet 3 mg 3 mg Oral Nightly Farrukh Diaz MD 3 mg at 11/02/202009 omega-3 acid ethyl esters (LOVAZA) capsule 1 capsule 1 capsule Oral Daily Farrukh Diaz MD 1 capsule at 11/02/20808 pantoprazole (PROTONIX) tablet 40 mg 40 mg Oral QAM AC Farrukh Diaz MD 40 mg at 11/02/20 08 paliperidone (INVEGA) extended release tablet 6 mg 6 mg Oral QAM Farrukh Diaz MD 6 mg at 11/02/2010 QUEtiapine (SEROQUEL XR) extended release tablet 600 mg 600 mg Oral Nightly Farrukh Diaz MD 600 mg at 11/02/202009 Data/ Recent Labs 10/31/2022011/02/20316 WBC 9.5 13.0* HGB 12.0* 13.2 HCT 35.7* 39.5* MCV 86.3 87.8 PLT 294 340 Recent Labs 10/31/2022011/01/20 0235 11/02/20 0317 NA 136 137 137 [...] remission atleast from renal perspective. No urgent MUD BOSS indications. Will follow. [facility] * Farrukh Diaz MD - 11/02/2020 3:16 PM EST Hospitalist Progress Note 11/02/2020 3:16 PM [phone]: Please page wy [phone] for patient care issues. [phone]: Please page [facility] Hospitalist for any issues. Subjective: Admit [...] of Hospitalist Medicine Inpatient Medical Services PAGER: [phone] * Piyush Daniel MD - 11/01/2020 8:04 PM EST [facility] Progress Note Subjective/ 55 [...] Nightly Farrukh Diaz MD 600 mg at 10/31/20 2123 Data/ Recent Labs 10/31/20 0221 WBC 9.5 [...] remission atleast from renal perspective. No urgent MUD BOSS indications. Will follow. [facility] * Farrukh Diaz MD - 11/01/2020 3:07 PM EST Hospitalist Progress Note 11/01/2020 3:08 PM [phone]: Please page wy [phone] for patient care issues. [phone]: Please page [facility] night Hospitalist for any issues. Subjective: [...] of Hospitalist Medicine Inpatient Medical Services PAGER: [phone] * Mia Noyola RCP - 11/01/2020 12:00 [...] EST Hospitalist Progress Note 11/01/2020 11:33 AM [phone]: Please page wy [phone] for patient care issues. [phone]: Please page [facility] night Hospitalist for any issues. Subjective: [...] lesions. LABS: CBC: Recent Labs 10/31/20 0221 WBC 9.5 RBC 4.14* HGB 12.0* HCT [...] 7 LIVER PROFILE: Recent Labs 10/30/20 0116 10/31/2022011/01/20 0235 AST 67* 67* 135* ALT 67* [...] of Hospitalist Medicine Inpatient Medical Services PAGER: [phone] * Bakari Hdz MD - 10/31/2020 9:35 [...] solution 1 ampule 1 ampule Inhalation Q4H NJ Farrukh Diaz MD 1 ampule at 10/30/20 2227 sulfamethoxazole-trimethoprim (BACTRIM DS;SEPTRA DS) 800-160 MG per [...] 40 mg 40 mg Oral QAM AC Farurkh Diaz MD 40 mg at 10/30/20 0501 [...] more ivf needed S/p contrats exposure 10/30, creyuko staying stable so far, trend Plan to restart home lasix dose today since abby improvinig Continue to hold Losartan. No changes needed to immunosuppressive therapy. May need to institute the antibiotic 3x/week the one he was on outpatient. 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 D/w IMS. No urgent MUD BOSS indications. Will follow. [facility] * Farrukh Diaz MD - 10/30/2020 3:50 PM EST Hospitalist Progress Note 10/30/2020 3:50 PM [phone]: Please page wy [phone] for patient care issues. [phone]: Please page [facility] night Hospitalist for any issues. Subjective: [...] NEGATIVE: No targets were detected by the [employer] 360 Upper Respiratory Pathogens PCR Panel. _ Expected Result: Not Detected The [employer] 360 Upper Respiratory Pathogens PCR Panel can detect [...] management decisions. This assay was developed by [employer] and distributed under an Emergency Use Authorization (EUA) granted by the FDA for the qualitative detection of SARS-CoV-2 nucleic acid. Provider and patient fact sheets can be found at https://www.fda. gov/media/926931/download and https://www.fda.gov/media/690222/download. Assessment / Plan 1. Acute hypoxic respiratory [...] of Hospitalist Medicine Inpatient Medical Services PAGER: [phone] * Bakari Hdz MD - 10/30/2020 10:18 AM EST [facility] Progress Note Subjective/ 57 [...] (!) 108/92 Pulse: 68 78 97 Resp: 20 Temp: 96.7 F (35.9 C) 97.4 F [...] Farrukh Diaz MD 20 mg at 10/29/20 0826 cyclobenzaprine (FLEXERIL) tablet 10 mg 10 mg [...] restart home lasix dose dani am if creyuko improvinig Continue to hold Losartan. No changes needed to immunosuppressive therapy. May need to institute the antibiotic 3x/week the one he was on outpatient. 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 D/w IMS. No urgent MUD BOSS indications. Will follow. [facility] * Jeanie Samuel - 10/30/2020 9:42 AM EST Nutrition rescreen completed. Patient assigned a level 1. * Farrukh Diaz MD - 10/29/2020 5:56 PM EST Hospitalist Progress Note 10/29/2020 5:56 PM [id number]: Please page wy [phone] for patient care issues. [phone]: Please page [facility] night Hospitalist for any issues. Subjective: [...] NEGATIVE: No targets were detected by the Starfish 360 Upper Respiratory Pathogens PCR Panel. _ Expected Result: Not Detected The Starfish 360 Upper Respiratory Pathogens PCR Panel can detect [...] management decisions. This assay was developed by [employer] and distributed under an Emergency Use Authorization (EUA) granted by the FDA for the qualitative detection of SARS-CoV-2 nucleic acid. Provider and patient fact sheets can be found at https://www.fda. gov/media/582217/download and https://www.fda.gov/media/868758/download. Assessment / Plan 1. Acute hypoxic respiratory [...] of Hospitalist Medicine Inpatient Medical Services PAGER: [phone] * Shirley Casillas RN - 10/29/2020 10:49 AM EST Documentation in [place] disease Reporting System: * Farrukh Diaz MD - 10/29/2020 9:58 AM EST Patient unable to get CTA chest due to DONNA - will hydrate and if able, will get it at a later time. * Irena Land RN - 10/29/2020 12:48 AM EST Patient moved into private bed [address] Mosley. Patients COVID test came back negative. Dr. Pro nursing supervisor dehydrogenation made aware. documented in this encounter Assessments Diagnosis Pneumonia due to COVID-19 virus- Primary Hypoxia Hypoxemia Hypokalemia Hypopotassemia Stage 3 chronic kidney disease, unspecified whether stage 3a or 3b CKD Chief Complaint and Reason for Visit Chief Complaint LONG TERM LAB WOR K LONG TERM LABWORK LONG TERM LABWORK LONG TERM LABWORK LONG TERM LAB WORK LONG TERM LABWORK Chief Complaint LONG TERM LABWORK LONG TERM LABWORK LONG TERM LAB WORK LONG TERM LABWORK LONG TERM LABWORK LONG TERM LABWORK Chief Complaint LONG TERM LABWORK LONG TERM LAB WORK LONG TERM LABWORK LONG TERM LABWORK LONG TERM LABWORK LABWORK LONG TERM LABWORK Chief Complaint LONG TERM LABWORK LONG TERM LAB WORK LONG TERM LABWORK LONG TERM LABWORK LONG TERM LABWORK LABWORK LONG TERM LABWORK LABWORK Chief Complaint LONG TERM LAB WOR K LONG TERM LABWORK LONG TERM LABWORK LONG TERM LABWORK LABWORK LONG TERM LABWORK LABWORK LABWORK Chief Complaint LONG TERM LABWORK LONG TERM LABWORK LABWORK LONG TERM LABWORK LABWORK LONG TERM LABWORK LABWORK LONG TERM LAB WORK LABWORK Chief Complaint LABWORK LONG TERM LABWORK LABWORK LONG TERM LABWORK LABWORK LONG TERM LAB WORK LABWORK LABWORK LABWORK Chief Complaint LABWORK LONG TERM LABWORK LABWORK LONG TERM LABWORK LABWORK LONG TERM LAB WORK LABWORK LABWORK LABWORK LONG TERM LABWORK Chief Complaint LONG TERM LABWORK LABWORK LONG TERM LABWORK LABWORK LONG TERM LAB WORK LABWORK LABWORK LABWORK LONG TERM LABWORK LONG TERM LABWORK Chief Complaint LABWORK LABWORK LABWORK LONG TERM LABWORK LONG TERM LABWORK LONG TERM LABWORK Chief Complaint LABWORK LABWORK LABWORK LONG TERM LABWORK LONG TERM LABWORK LABWORK LONG TERM LABWORK Chief Complaint LABWORK LABWORK LONG TERM LABWORK LONG TERM LABWORK LABWORK LONG TERM LABWORK LONG TERM LAB WORK LONG TERM LABWORK Chief Complaint LABWORK LONG TERM LABWORK LONG TERM LABWORK LABWORK LONG TERM LABWORK LONG TERM LAB WORK LONG TERM LABWORK LONG TERM LABWORK Chief Complaint LABWORK LONG TERM LABWORK LONG TERM LAB WORK LONG TERM LABWORK LONG TERM LABWORK LABWORK LONG TERM LAB WORK LABWORK Chief Complaint LONG TERM LABWORK LONG TERM LAB WORK LONG TERM LABWORK LONG TERM LABWORK LABWORK LONG TERM LAB WORK LABWORK LABWORK Chief Complaint LONG TERM LABWORK LONG TERM LAB WORK LONG TERM LABWORK LONG TERM LABWORK LABWORK LONG TERM LAB WORK LABWORK LABWORK LONG TERM LAB WORK Chief Complaint LONG TERM LABWORK LABWORK LONG TERM LAB WORK LABWORK LABWORK LONG TERM LAB WORK LONG TERM LABWORK Chief Complaint LABWORK LONG TERM LAB WORK LABWORK LABWORK LONG TERM LAB WORK LONG TERM LABWORK LABWORK LONG TERM LABWORK Chief Complaint LONG TERM LAB WOR K LABWORK LABWORK LONG TERM LAB WORK LONG TERM LABWORK LABWORK LONG TERM LABWORK LABWORK Chief Complaint LONG TERM LAB WOR K LABWORK LABWORK LONG TERM LAB WORK LONG TERM LABWORK LABWORK LONG TERM LABWORK LABWORK LONG TERM LAB WORK Chief Complaint LABWORK LABWORK LONG TERM LAB WORK LONG TERM LABWORK LABWORK LONG TERM LABWORK LABWORK LABWORK LONG TERM LAB WORK LONG TERM LABWORK Chief Complaint LABWORK LONG TERM LAB WORK LONG TERM LABWORK LABWORK LONG TERM LABWORK LABWORK LABWORK LONG TERM LAB WORK LONG TERM LABWORK LABWORK Chief Complaint LONG TERM LAB WOR K LONG TERM LABWORK LABWORK LONG TERM LABWORK LABWORK LABWORK LONG TERM LAB WORK LONG TERM LABWORK LABWORK LABWORK Chief Complaint LABWORK LABWORK LONG TERM LABWORK LONG TERM LABWORK LABWORK LABWORK LONG TERM LAB WORK LONG TERM LABWORK Chief Complaint LONG TERM LABWORK LONG TERM LABWORK LABWORK LABWORK LONG TERM LAB WORK LONG TERM LABWORK LONG TERM LAB WORK LABWORK Chief Complaint LABWORK LABWORK LONG TERM LAB WORK LONG TERM LABWORK LONG TERM LAB WORK LABWORK LABWORK Chief Complaint LONG TERM LAB WOR K LONG TERM LABWORK LONG TERM LAB WORK LABWORK LABWORK LONG TERM LABWORK LONG TERM LABWORK Chief Complaint LABWORK LABWORK LONG TERM LABWORK LONG TERM LABWORK LABWORK Chief Complaint LABWORK LABWORK LONG TERM LABWORK LONG TERM LABWORK LABWORK LONG TERM LAB WORK Chief Complaint LABWORK LABWORK LONG TERM LABWORK LONG TERM LABWORK LABWORK LONG TERM LAB WORK LABWORK Chief Complaint LONG TERM LABWORK LONG TERM LABWORK LABWORK LONG TERM LAB WORK LABWORK LONG TERM LABWORK Chief Complaint LONG TERM LABWORK LONG TERM LABWORK LABWORK LONG TERM LAB WORK LABWORK LONG TERM LABWORK LONG TERM LAB WORK Chief Complaint LABWORK LONG TERM LAB WORK LABWORK LONG TERM LABWORK LONG TERM LAB WORK LONG TERM LAB WORK LABWORK Chief Complaint LONG TERM LAB WOR K LABWORK LONG TERM LABWORK LONG TERM LAB WORK LONG TERM LAB WORK LABWORK LABWORK Chief Complaint LONG TERM LABWORK LONG TERM LAB WORK LONG TERM LAB WORK LABWORK LABWORK LABWORK Chief Complaint Admit Date LONG TERM LAB WORK September 27 4 5:00am LONG TERM LAB WORK November 15, 2024 5:00am LONG TERM LAB WORK November 27, 2024 5:00am LONG TERM LAB WORK December 28 5:00am LONG TERM LAB WORK January 02 5:00am LONG TERM LAB WORK January 03 6:10am Chief Complaint Admit Date LONG TERM LAB WORK November 15, 2024 5:00am LONG TERM LAB WORK November 27, 2024 5:00am LONG TERM LAB WORK December 28 5:00am LONG TERM LAB WORK January 02 5:00am LONG TERM LAB WORK January 03 6:10am LONG TERM LAB WORK January 25, 2025 5 :00am Chief Complaint Admit Date LONG TERM LAB WORK November 15, 2024 5:00am LONG TERM LAB WORK November 27, 2024 5:00am LONG TERM LAB WORK December 28 5:00am LONG TERM LAB WORK January 02 5:00am LONG TERM LAB WORK January 03 6:10am LONG TERM LAB WORK January 25, 2025 5 :00am LONG TERM LAB WORK January 30, 2025 5 :00am Chief Complaint Admit Date LONG TERM LAB WORK November 15, 2024 5:00am LONG TERM LAB WORK November 27, 2024 5:00am LONG TERM LAB WORK December 28 5:00am LONG TERM LAB WORK January 02 5:00am LONG TERM LAB WORK January 03 6:10am LONG TERM LAB WORK January 25, 2025 5 :00am LONG TERM LAB WORK January 30, 2025 5 :00am LABWORKJ February 06, 2025 5:0 0am LABWORK February 11, 2025 5:0 0am Chief Complaint Admit Date LONG TERM LAB WORK November 27, 2024 5:00am LONG TERM LAB WORK December 28 5:00am LONG TERM LAB WORK January 02 5:00am LONG TERM LAB WORK January 03 6:10am LONG TERM LAB WORK January 25, 2025 5 :00am LONG TERM LAB WORK January 30, 2025 5 :00am LABWORKJ February 06, 2025 5:0 0am LABWORK February 11, 2025 5:0 0am LABWORK February 27, 2025 5:0 0am Chief Complaint Admit Date LONG TERM LAB WORK November 27, 2024 5:00am LONG TERM LAB WORK December 28 5:00am LONG TERM LAB WORK January 02 5:00am LONG TERM LAB WORK January 03 6:10am LONG TERM LAB WORK January 25, 2025 5 :00am LONG TERM LAB WORK January 30, 2025 5 :00am LABWORKJ February 06, 2025 5:0 0am LABWORK February 11, 2025 5:0 0am LONG TERM LAB WORK February 25, 2025 5 :00am LABWORK February 27, 2025 5:0 0am Chief Complaint Admit Date LONG TERM LAB WORK December 28 5:00am LONG TERM LAB WORK January 02 5:00am LONG TERM LAB WORK January 03 6:10am LONG TERM LAB WORK January 25, 2025 5 :00am LONG TERM LAB WORK January 30, 2025 5 :00am LABWORKJ February 06, 2025 5:0 0am LABWORK February 11, 2025 5:0 0am LONG TERM LAB WORK February 25, 2025 5 :00am LABWORK February 27, 2025 5:0 0am LONG TERM LAB WORK March 04, 2025 1 0:30pm Chief Complaint Admit Date LONG TERM LAB WORK January 25, 2025 5 :00am LONG TERM LAB WORK January 30, 2025 5 :00am LABWORKJ February 06, 2025 5:0 0am LABWORK February 11, 2025 5:0 0am LONG TERM LAB WORK February 25, 2025 5 :00am LABWORK February 27, 2025 5:0 0am LONG TERM LAB WORK March 04, 2025 1 0:30pm LABWORK March 27, 2025 5:00a m LONG TERM LAB WORK April 01, 2025 5:0 0am [...] skin eruption Procedures CONSULT TO DERMATOLOGY OFFICE/OUTPATIENT [facility] 60 MINUTES Dorota Smith MD [address] [place] [address] Referral ID Status Reason Start Date Expiration Date Visits Requested Visits Authorized [id number] Authorized PCP Requested Referral 09/14/2024 09/14/2025 1 1 Additional Source Comments INFORMATION SOURCE (unrecogn ized section and content) DATE CREATED AUTHOR 06/07/2018 [facility] DATE CREATED AUTHOR AUTHOR'S ORGANIZ ATION 04/02/2019 [facility] DATE CREATED AUTHOR AUTHOR'S ORGANIZ ATION 03/30/2020 [facility] DATE CREATED AUTHOR AUTHOR'S ORGANIZ ATION 08/05/2020 [facility] DATE CREATED AUTHOR AUTHOR'S ORGANIZ ATION 11/21/2020 [facility] DATE CREATED AUTHOR AUTHOR'S ORGANIZ ATION 09/18/2024 [facility] DATE CREATED AUTHOR AUTHOR'S ORGANIZ ATION 02/27/2025 [facility] DATE CREATED AUTHOR AUTHOR'S ORGANIZ ATION 05/26/[address] [facility] DATE CREATED AUTHOR AUTHOR'S ORGANIZ ATION 05/28/2025 [facility] (unrecognized sect ion and content) No [...] 10 MG [place]UXIMAB Anthony Olivares [place] [address] [place] [address] 1, Kid[facility] Main Infusion Chair [address] [place] [address] Referral ID Status Reason Start Date Expiration Date V isits Requested Visits Authorized [id number] Authorized 03/31/2022 11/13/2022 99 99 Reason Comments Shortness of Breath Reason Comments Follow Up Reason Comments Infusion iv rituximab Reason Comments Radio Main J1 Specialty Diagnoses / Procedures Referred By Contac t Referred To Contact XR IMAGING Diagnoses Chronic pain of right knee Procedures XR KNEE LIMITED 2V AP/LAT RIGHT RADIOLOGIC EXAMINATION KNEE 1/2 VIEWS Luz Daniel MD [address] [place] [address] Xr Imaging Referral ID Status Reason Start Date Expiration Date V isits Requested Visits Authorized [id number] Closed Auto-Generate d Referral 02/26/2022 03/28/2023 1 1 Reason Comments Rheumatoid Arthritis Reason Comments Follow Up RA- hands, stiff and swollen Reason Comments NO SHOW Reason Comments Patient Update Reason Comments Appointment Specialty Diagnoses / Procedures Referred By Contac t Referred To Contact Diagnoses 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) Procedures INJ RUXIENCE, 10 MG Anthony Olivares MD [address] [place] [address] Infusion Center [facility] [address] [place] [address] Referral ID Status Reason Start Date Expiration Date V isits Requested Visits Authorized [id number] Authorized 12/27/2023 12/29/2024 24 24 Reason Comments [...] prosecute any alcohol or drug abuse patient.[facility] CenterIn the event this information is protected by the Federal Confidentiality of Alcohol and Drug Abuse Patient Records regulations: The Federal rules restrict any use of the information to criminally investigate or prosecute any alcohol or drug abuse patient.[facility] CenterIn the event this information is protected by the Federal Confidentiality of Alcohol and Drug Abuse Patient Records regulations: The Federal rules restrict any use of the information to criminally investigate or prosecute any alcohol or drug abuse patient.[facility] CenterIn the event this information is protected by the Federal Confidentiality of Alcohol and Drug Abuse Patient Records regulations: The Federal rules restrict any use of the information to criminally investigate or prosecute any alcohol or drug abuse patient.[facility] CenterIn the event this information is protected by the Federal Confidentiality of Alcohol and Drug Abuse Patient Records regulations: The Federal rules restrict any use of the information to criminally investigate or prosecute any alcohol or drug abuse patient.[facility] CenterIn the event this information is protected by the Federal Confidentiality of Alcohol and Drug Abuse Patient Records regulations: The Federal rules restrict any use of the information to criminally investigate or prosecute any alcohol or drug abuse patient.[facility] CenterIn the event this information is protected by the Federal Confidentiality of Alcohol and Drug Abuse Patient Records regulations: The Federal rules restrict any use of the information to criminally investigate or prosecute any alcohol or drug abuse patient.[facility] CenterIn the event this information is protected by the Federal Confidentiality of Alcohol and Drug Abuse Patient Records regulations: The Federal rules restrict any use of the information to criminally investigate or prosecute any alcohol or drug abuse patient.[facility] CenterIn the event this information is protected by the Federal Confidentiality of Alcohol and Drug Abuse Patient Records regulations: The Federal rules restrict any use of the information to criminally investigate or prosecute any alcohol or drug abuse patient.[facility] CenterIn the event this information is protected by the Federal Confidentiality of Alcohol and Drug Abuse Patient Records regulations: The Federal rules restrict any use of the information to criminally investigate or prosecute any alcohol or drug abuse patient.[facility] CenterIn the event this information is protected by the Federal Confidentiality of Alcohol and Drug Abuse Patient Records regulations: The Federal rules restrict any use of the information to criminally investigate or prosecute any alcohol or drug abuse patient.[facility] CenterIn the event this information is protected by the Federal Confidentiality of Alcohol and Drug Abuse Patient Records regulations: The Federal rules restrict any use of the information to criminally investigate or prosecute any alcohol or drug abuse patient.[facility] CenterIn the event this information is protected by the Federal Confidentiality of Alcohol and Drug Abuse Patient Records regulations: The Federal rules restrict any use of the information to criminally investigate or prosecute any alcohol or drug abuse patient.[facility] CenterIn the event this information is protected by the Federal Confidentiality of Alcohol and Drug Abuse Patient Records regulations: The Federal rules restrict any use of the information to criminally investigate or prosecute any alcohol or drug abuse patient.[facility] the event this information is protected by the Federal Confidentiality of Alcohol and Drug Abuse Patient Records regulations: The Federal rules restrict any use of the information to criminally investigate or prosecute any alcohol or drug abuse patient.[facility] CenterIn the event this information is protected by the Federal Confidentiality of Alcohol and Drug Abuse Patient Records regulations: The Federal rules restrict any use of the information to criminally investigate or prosecute any alcohol or drug abuse patient.[facility] CenterIn the event this information is protected by the Federal Confidentiality of Alcohol and Drug Abuse Patient Records regulations: The Federal rules restrict any use of the information to criminally investigate or prosecute any alcohol or drug abuse patient.[facility] CenterIn the event this information is protected by the Federal Confidentiality of Alcohol and Drug Abuse Patient Records regulations: The Federal rules restrict any use of the information to criminally investigate or prosecute any alcohol or drug abuse patient.[facility] CenterIn the event this information is protected by the Federal Confidentiality of Alcohol and Drug Abuse Patient Records regulations: The Federal rules restrict any use of the information to criminally investigate or prosecute any alcohol or drug abuse patient.[facility] CenterIn the event this information is protected by the Federal Confidentiality of Alcohol and Drug Abuse Patient Records regulations: The Federal rules restrict any use of the information to criminally investigate or prosecute any alcohol or drug abuse patient.[facility] CenterIn the event this information is protected by the Federal Confidentiality of Alcohol and Drug Abuse Patient Records regulations: The Federal rules restrict any use of the information to criminally investigate or prosecute any alcohol or drug abuse patient.[facility] CenterIn the event this information is protected by the Federal Confidentiality of Alcohol and Drug Abuse Patient Records regulations: The Federal rules restrict any use of the information to criminally investigate or prosecute any alcohol or drug abuse patient.[facility] CenterIn the event this information is protected by the Federal Confidentiality of Alcohol and Drug Abuse Patient Records regulations: The Federal rules restrict any use of the information to criminally investigate or prosecute any alcohol or drug abuse patient.[facility] CenterIn the event this information is protected by the Federal Confidentiality of Alcohol and Drug Abuse Patient Records regulations: The Federal rules restrict any use of the information to criminally investigate or prosecute any alcohol or drug abuse patient.[facility] CenterIn the event this information is protected by the Federal Confidentiality of Alcohol and Drug Abuse Patient Records regulations: The Federal rules restrict any use of the information to criminally investigate or prosecute any alcohol or drug abuse patient.[facility] CenterIn the event this information is protected by the Federal Confidentiality of Alcohol and Drug Abuse Patient Records regulations: The Federal rules restrict any use of the information to criminally investigate or prosecute any alcohol or drug abuse patient.[facility] CenterIn the event this information is protected by the Federal Confidentiality of Alcohol and Drug Abuse Patient Records regulations: The Federal rules restrict any use of the information to criminally investigate or prosecute any alcohol or drug abuse patient.[facility] CenterIn the event this information is protected by the Federal Confidentiality of Alcohol and Drug Abuse Patient Records regulations: The Federal rules restrict any use of the information to criminally investigate or prosecute any alcohol or drug abuse patient.[facility] CenterIn the event this information is protected by the Federal Confidentiality of Alcohol and Drug Abuse Patient Records regulations: The Federal rules restrict any use of the information to criminally investigate or prosecute any alcohol or drug abuse patient.[facility] CenterIn the event this information is protected by the Federal Confidentiality of Alcohol and Drug Abuse Patient Records regulations: The Federal rules restrict any use of the information to criminally investigate or prosecute any alcohol or drug abuse patient.[facility] CenterIn the event this information is protected by the Federal Confidentiality of Alcohol and Drug Abuse Patient Records regulations: The Federal rules restrict any use of the information to criminally investigate or prosecute any alcohol or drug abuse patient.[facility] CenterIn the event this information is protected by the Federal Confidentiality of Alcohol and Drug Abuse Patient Records regulations: The Federal rules restrict any use of the information to criminally investigate or prosecute any alcohol or drug abuse patient.[facility] CenterIn the event this information is protected by the Federal Confidentiality of Alcohol and Drug Abuse Patient Records regulations: The Federal rules restrict any use of the information to criminally investigate or prosecute any alcohol or drug abuse patient.[facility] CenterIn the event this information is protected by the Federal Confidentiality of Alcohol and Drug Abuse Patient Records regulations: The Federal rules restrict any use of the information to criminally investigate or prosecute any alcohol or drug abuse patient.[facility] Care Teams (unrecognized sec tion and content) Terrazzo Grinder Relationship Specialty Start Date End Date Elgin Bal MD [address] [place], [place] [id number] PCP - General Family Practice 12/25/12 Anthony Olivares MD [address] [place] [address] Parts Coordinator Nephrology 03/19/21 Anthony Olivares MD [address] [place] [address] Primary Staff Physician Nephrology 12/10/21 Terrazzo Grinder Relationship Specialty Start Date End Date Elgin Bal MD [address] [place], [place] [id number] PCP - General Family Practice 12/25/12 Anthony Olivares MD [address] [place] [address] Parts Coordinator Nephrology 03/19/21 Anthony Olivares MD [address] [place] [address] Primary Staff Physician Nephrology 12/10/21 Terrazzo Grinder Relationship Specialty Start Date End Date Elgin Bal MD [address] [place] [address] PCP - General Family Practice 12/25/12 Anthony Olivares MD [address] [place] [address] Parts Coordinator Nephrology 03/19/21 Anthony Olivares MD [address] [place] [address] Primary Staff Physician Nephrology 12/10/21 Terrazzo Grinder Relationship Specialty Start Date End Date Elgin Bal MD [facility] [place] [address] PCP - General Family Practice 12/25/12 Anthony Olivares MD [address] [place] [address] Parts Coordinator Nephrology 03/19/21 Anthony Olivares MD [address] [place] [address] Primary Staff Physician Nephrology 12/10/21 Terrazzo Grinder Relationship Specialty Start Date End Date Elgin Bal MD [address] [place] [address] PCP - General Family Practice 12/25/12 Anthony Olivares MD [address] [place] [address] Parts Coordinator Nephrology 03/19/21 Anthony Olivares MD [address] [place] [address] Primary Staff Physician Nephrology 12/10/21 Terrazzo Grinder Relationship Specialty Start Date End Date Elgin Bal MD [address] [place] [address] PCP - General Family Practice 12/25/12 Anthony Olivares MD [address] [place] [address] Parts Coordinator Nephrology 03/19/21 Anthony Olivares MD [address] [place] [address] Primary Staff Physician Nephrology 12/10/21 Terrazzo Grinder Relationship Specialty Start Date End Date Elgin Bal MD [address] [place] [address] PCP - General Family Medicine 12/25/12 Anthony Olivares MD [address] [place] [address] Parts Coordinator Nephrology 03/19/21 Anthony Olivares MD [address] [place] [address] Primary Staff Physician Nephrology 12/10/21 Terrazzo Grinder Relationship Specialty Start Date End Date Elgin Bal MD [address] [place] [address] PCP - General Family Medicine 12/25/12 Anthony Olivares MD [address] [place] [address] Parts Coordinator Nephrology 03/19/21 Anthony Olivares MD [address] [place] [address] Primary Staff Physician Nephrology 12/10/21 Terrazzo Grinder Relationship Specialty Start Date End Date Elgin Bal MD [address] [place] [address] PCP - General Family Medicine 12/25/12 Anthony Olivares MD [address] [place], [place] [id number] Parts Coordinator Nephrology 03/19/21 Anthony Olivares MD [address] [place] [address] Primary Staff Physician Nephrology 12/10/21 Terrazzo Grinder Relationship Specialty Start Date End Date Elgin Bal MD [address] [place], [place] [id number] PCP - General Family Medicine 12/25/12 Anthony Olivares MD [address] [place] [address] Parts Coordinator Nephrology 03/19/21 Anthony Olivares MD [address] [place] [address] Primary Staff Physician Nephrology 12/10/21 [...] CHANDLER Attending Provider, Referring Prov ider Active Terrazzo Grinder Relationship Specialty Start Date End Date Elgin Bal MD [address] [place] [address] PCP - General Family Medicine 12/25/12 Anthony Olivares MD [address] [place], [place] [id number] Parts Coordinator Nephrology 03/19/21 Anthony Olivares MD [address] [place] [address] Primary Staff Physician Nephrology 12/10/21 Team Status: Inactive Member Role Status Dates Dr. Elgin Bal MD Primary Care Provider Active Dr. Alfredo Phipps MD Attending Provider Active Team Status: Active Member Role Status Dates Dr. Elgin Bal MD Primary Care Provider Active Adam CHANDLER Attending Provider, Referring Prov ider Active Terrazzo Grinder Relationship Specialty Start Date End Date Elgin Bal MD [address] [place] [address] PCP - General Family Medicine 12/25/12 Anthony Olivares MD [address] [place], [place] [id number] Parts Coordinator Nephrology 03/19/21 Anthony Olivares MD [address] [place] [address] Primary Staff Physician Nephrology 12/10/21 Terrazzo Grinder Relationship Specialty Start Date End Date Elgin Bal MD [address] [place] [address] PCP - General Family Medicine 12/25/12 Anthony Olivares MD [address] [place] [address] Parts Coordinator Nephrology 03/19/21 Anthony Olivares MD [address] [place] [address] Primary Staff Physician Nephrology 12/10/21 Terrazzo Grinder Relationship Specialty Start Date End Date Alfredo Phipps MD [address] [facility] [address] [place] [address] PCP - General Internal Medicine 10/19/23 Anthony Olivares MD [address] [place] [address] Parts Coordinator Nephrology 03/19/21 Anthony Olivares MD [address] [place] [address] Primary Staff Physician Nephrology 12/10/21 Terrazzo Grinder Relationship Specialty Start Date End Date Alfredo Phipps MD [address] [facility] [address] [place] [address] PCP - General Internal Medicine 10/19/23 Anthony Olivares MD [address] [place] [address] Parts Coordinator Nephrology 03/19/21 Anthony Olivares MD [address] [place] [address] Primary Staff Physician Nephrology 12/10/21 Terrazzo Grinder Relationship Specialty Start Date End Date Alfredo Phipps MD [address] [facility] [address] [place] [address] PCP - General Internal Medicine 10/19/23 Anthony Olivares MD [address] [place] [address] Parts Coordinator Nephrology 03/19/21 Anthony Olivares MD [address] [place] [address] Primary Staff Physician Nephrology 12/10/21 Terrazzo Grinder Relationship Specialty Start Date End Date Alfredo Phipps MD [address] [facility] [address] [place] [address] PCP - General Internal Medicine 10/19/23 Anthony Olivares MD [address] [place] [address] Parts Coordinator Nephrology 03/19/21 Anthony Olivares MD [address] [place] [address] Primary Staff Physician Nephrology 12/10/21 Terrazzo Grinder Relationship Specialty Start Date End Date Alfredo Phipps MD [address] [facility] [address] [place] [address] PCP - General Internal Medicine 10/19/23 Anthony Olivares MD [address] [place] [address] Parts Coordinator Nephrology 03/19/21 Anthony Olivares MD [address] [place] [address] Primary Staff Physician Nephrology 12/10/21 Terrazzo Grinder Relationship Specialty Start Date End Date Alfredo Phipps MD [address] [facility] [address] [place] [address] PCP - General Internal Medicine 10/19/23 Anthony Olivares MD [address] [place] [address] Parts Coordinator Nephrology 03/19/21 Anthony Olivares MD [address] [place] [address] Primary Staff Physician Nephrology 12/10/21 Terrazzo Grinder Relationship Specialty Start Date End Date Alfredo Phipps MD [address] [facility] [address] [place] [address] PCP - General Internal Medicine 10/19/23 Anthony Olivares MD [address] [place] [address] Parts Coordinator Nephrology 03/19/21 Anthony Olivares MD [address] [place], [place] [id number] Primary Staff Physician Nephrology 12/10/21 Terrazzo Grinder Relationship Specialty Start Date End Date Alfredo Phipps MD [address] [facility] [address] [place] [address] PCP - General Internal Medicine 10/19/23 Anthony Olivares MD [address] [place] [address] Parts Coordinator Nephrology 03/19/21 Anthony Olivares MD [address] [place] [address] Primary Staff Physician Nephrology 12/10/21 Terrazzo Grinder Relationship Specialty Start Date End Date Alfredo Phipps MD [address] [facility] [address] [place] [address] PCP - General Internal Medicine 10/19/23 Anthony Olivares MD [address] [place] [address] Parts Coordinator Nephrology 03/19/21 Anthony Olivares MD [address] [place] [address] Primary Staff Physician Nephrology 12/10/21 Terrazzo Grinder Relationship Specialty Start Date End Date Alfredo Phipps MD [address] [facility] [address] [place] [address] PCP - General Internal Medicine 10/19/23 Anthony Olivares MD [address] [place] [address] Parts Coordinator Nephrology 03/19/21 Anthony Olivares MD [address] [place] [address] Primary Staff Physician Nephrology 12/10/21 Terrazzo Grinder Relationship Specialty Start Date End Date Alfredo Phipps MD [address] [facility] [address] [place] [address] PCP - General Internal Medicine 10/19/23 Anthony Olivares MD [address] [place] [address] Parts Coordinator Nephrology 03/19/21 Anthony Olivares MD [address] [place] [address] Primary Staff Physician Nephrology 12/10/21 Terrazzo Grinder Relationship Specialty Start Date End Date Alfredo Phipps MD [address] [facility] [address] [place] [address] PCP - General Internal Medicine 10/19/23 Anthony Olivares MD [address] [place] [address] Parts Coordinator Nephrology 03/19/21 Anthony Olivares MD [address] [place] [address] Primary Staff Physician Nephrology 12/10/21 Terrazzo Grinder Relationship Specialty Start Date End Date Alfredo Phipps MD [address] [facility] [address] [place] [address] PCP - General Internal Medicine 10/19/23 Anthony Olivares MD [address] [place] [address] Parts Coordinator Nephrology 03/19/21 Anthony Olivares MD [address] [place] [address] Primary Staff Physician Nephrology 12/10/21 Terrazzo Grinder Relationship Specialty Start Date End Date Alfredo Phipps MD [address] [facility] [address] [place] [address] PCP - General Internal Medicine 10/19/23 Anthony Olivares MD [address] [place] [address] Parts Coordinator Nephrology 03/19/21 Anthony Olivares MD [address] [place] [address] Primary Staff Physician Nephrology 12/10/21 Team Status: [...] January 30, 2025 End: January 30, 2025 Terrazzo Grinder Relationship Specialty Start Date End Date Alfredo Phipps MD [address] [facility] [address] [place] [address] PCP - General Internal Medicine 10/19/23 Anthony Olivares MD [address] [place] [address] Parts Coordinator Nephrology 03/19/21 Anthony Olivares MD [address] [place] [address] Primary Staff Physician Nephrology 12/10/21 Team Status: [...] Provider Active St art: May 02, 2025 Terrazzo Grinder Relationship Specialty Start Date End Date Alfredo Phipps MD [address] [facility] [address] [place] [address] PCP - General Internal Medicine 10/19/23 Anthony Olivares MD [address] [place], [place] [id number] Parts Coordinator Nephrology 03/19/21 Anthony Olivares MD [address] [place] [address] Primary Staff Physician Nephrology 12/10/21 Terrazzo Grinder Relationship Specialty Start Date End Date Alfredo Phipps MD [address] [place] [address] [place] [address] PCP - General Internal Medicine 10/19/23 Anthony Olivares MD [address] [place] [address] Parts Coordinator Nephrology 03/19/21 Anthony Olivares MD [address] [place] [address] Primary Staff Physician Nephrology 12/10/21 Inactive Administered [...] BE BASED ON THE PRIMARY CLINICAL RECORDS. [facility] provides no warranty or guarantee of the accuracy or completeness of information in this document.
[2025-05-28 08:26] LABS: Hematocrit 39.7 % (40-54); Hemoglobin 13.3 g/dL (13.0-16.5); Immature Granulocytes Count 0.060 X10^3/uL (0.0-0.0); Mean Corp Hgb Conc 33.5 g/dL (32-36); Mean Corpuscular Volume 90.0 fL (80-94); Mean Platelet Vol. 9.2 fl (6.2-12.0); NRBC Flagged by Analyzer 0 % (0-5); Platelet Count 235 K/mm3 (150-450); RBC Distribution Width CV 12.5 % (11.6-14.6); RBC Distribution Width SD 41.1 fl (35.1-43.9); Red Blood Count 4.41 M/mm3 (4.6-6.2); White Blood Count 8.9 K/mm3 (4.4-11.0)
== END ==
LOC: OLS.SANC 05:00
PROVIDERS: PCP Family Medicine; Visit Provider Family Medicine
DX: E11.22 Type 2 diabetes mellitus with diabetic chronic kidney disease (principal); E78.5 Hyperlipidemia, unspecified; N18.30 Chronic kidney disease, stage 3 unspecified
CPT/HCPCS: 36415; 85025

== ENCOUNTER → 2025-06-05 | Outpatient (REF) | payer MEDICAID, MEDICARE, SELFPAY | END | disposition home or self-care (01) | LOC: OLS.SANC 05:00 | PROVIDERS: PCP Family Medicine; Visit Provider Family Medicine | DX: E11.22 Type 2 diabetes mellitus with diabetic chronic kidney disease (principal); N18.30 Chronic kidney disease, stage 3 unspecified; D63.1 Anemia in chronic kidney disease; E78.5 Hyperlipidemia, unspecified | CPT/HCPCS: 36415 ==

== ENCOUNTER → 2025-06-19 | Outpatient (REF) | payer MEDICARE, MEDICAID, SELFPAY ==
[2025-06-19 09:31] LABS: Hematocrit 39.2 % (40-54); Hemoglobin 12.8 g/dL (13.0-16.5); Immature Granulocytes Count 0.040 X10^3/uL (0.0-0.0); Mean Corp Hgb Conc 32.7 g/dL (32-36); Mean Corpuscular Volume 91.8 fL (80-94); Mean Platelet Vol. 9.5 fl (6.2-12.0); NRBC Flagged by Analyzer 0 % (0-5); Platelet Count 247 K/mm3 (150-450); RBC Distribution Width CV 12.7 % (11.6-14.6); RBC Distribution Width SD 42.5 fl (35.1-43.9); Red Blood Count 4.27 M/mm3 (4.6-6.2); White Blood Count 8.7 K/mm3 (4.4-11.0)
[2025-06-19 09:38] LABS: Lithium 0.56 mmol/L (0.60-1.20)
[2025-06-19 09:43] LABS: AST(SGOT) 14 U/L (<=37); Alanine Aminotransfer ALT/SGPT 8 U/L (<=46); Albumin, Serum 3.6 g/dL (3.4-4.8); Alkaline Phosphatase 91 U/L (40-129); Anion Gap 13 (5-15); BUN 26 mg/dL (4-19); BUN/Creat Ratio 11.3 RATIO (10-20); Calcium,Total 9.3 mg/dL (7.6-11.0); Carbon Dioxide 19.9 mmol/L (21.0-32.0); Chloride 105 mmol/L (98-108); Globulin 2.5 g/dL (2.2-4.2); Glucose 122 mg/dL (70-99); Potassium 4.3 mmol/L (3.3-5.1)
== END ==
LOC: OLS.SANC 05:00
PROVIDERS: PCP Family Medicine; Visit Provider Internal Medicine
DX: F31.2 Bipolar disorder, current episode manic severe with psychotic features
CPT/HCPCS: 36415; 80053; 80178; 84100; 85025

== ENCOUNTER → 2025-06-20 | Outpatient (REF) | payer MEDICARE, MEDICAID, SELFPAY ==
[2025-06-20 10:05] LABS: Creatinine, Urine (random) 33.80 mg/dL (39.00-259.00); Protein, Urine (Random) 7.7 mg/dL (0.0-12.0); Protein:Creat Ratio 227 mg/g CRE (0-200)
== END ==
LOC: OLS.SANC 05:00
PROVIDERS: PCP Family Medicine; Visit Provider Internal Medicine
DX: F25.0 Schizoaffective disorder, bipolar type (principal)
CPT/HCPCS: 82570; 84156

== ENCOUNTER → 2025-06-27 05:00 | Outpatient (REF) | payer MEDICARE, MEDICAID, SELFPAY ==
--- OUTSIDE RECORDS SUMMARY | 2025-06-27 04:26 | XMS RPT_ITS | CCD ---
Author Organization [facility] Care Team Providers Care Construction Secretary Name Role Phone HODA BERNABE MD Admitting [...] Owusu Referring Unavailable DOROTA SMITH Attending Unavailable Mally BROWNING, Dr. Eisenberg Primary Care Provider Adam Marley Attending Provider Aurelia Bal MD, Dr. Eisenberg Primary Care Provider Adam Marley Attending Provider UnavailAlfredo Lundberg Attending Provider Unavailab ANTHONY Ragland Referring Unavailable KATSAROS, ALFREDO SPICER Primary Care UnavailANTHONY Aleman Referring Unavailable KATSAROS, ALFREDO SPICER Primary Care Unavaila ANTHONY Shell Referring Unavailable KATSAROS, ALFREDO SPICER Primary Care Unavailterra Bal MD, Dr. Eisenberg Primary Care Provider Adam Marley Attending Provider Unavailterra Bal MD, Dr. Eisenberg Primary Care Provider Adam Marley Attending Provider Unavailterra Bal MD, Dr. Eisenberg Primary Care Provider [phone] Adam Marley Attending Provider UnavailANTHONY Aleman Attending Unavailable SELF Referring Unavailable KATSAROS, ALFREDO SPICER Primary Care Unavaila ANTHONY Shell Attending Unavailable ANTHONY OLIVARES Referring Unavailable KATSAROS, ALFREDO SPICER Primary Care Unavaila ble KatsaAlfredo Méndez Attending Unavailable [place], [facility] Primary Care Unavailable Gunning RAMESH, Adam Attending Unavailable Mally, [facility] Primary Care Unavailable [place], [facility] Primary Care Unavailable Katsaros RAMESH, Alfredo Attending Unavailable [place] Adam CHANDLER Attending Unavailable [place], [facility] Primary Care Unavailable [place], [facility] Primary Care Unavailable [place] RAMESH, Adam Attending Unavailable [place] RAMESH, Adam Attending Unavailable [place], [facility] Primary Care Unavailable Gunning OLS, Adam Attending Unavailable Mally, [facility] Primary Care Unavailable [place]unning OLS, Adam Attending Unavailable Mally, [facility] Primary Care Unavailable Mally, [facility] Primary Care Unavailable [place] RAMESH, Adam Attending Unavailable Katsaros RAMESH, Alfredo Attending Unavailable [place], [facility] Primary Care Unavailable Mally, [facility] Primary Care Unavailable [place] RAMESH, Adam Attending Unavailable Mally, [facility] Primary Care Unavailable Katsaros RAMESH, Alfredo Attending Unavailable [place]unning RAMESH, Adam Attending Unavailable [place], [facility] Primary Care Unavailable [place], [facility] Primary Care Unavailable Katsaros RAMESH, Alfredo Attending Unavailable [place] RAMESH, Adam Attending Unavailable Mally, [facility] Primary Care Unavailable [place]unning RAMESH, Adam Attending Unavailable [place], [facility] Primary Care Unavailable Katsaros RAMESH, Alfredo Attending Unavailable [place], [facility] Primary Care Unavailable [place] OLS, Adam Attending Unavailable [place], [facility] Primary Care Unavailable Katsaros OLS, Alfredo Attending Unavailable [place], [facility] Primary Care Unavailable Mally, [facility] Primary Care Unavailable Katsaros OLS, Peter Attending Unavailable Gunning OLS, Adam Attending Unavailable [place], [facility] Primary Care Unavailable [place], [facility] Primary Care Unavailable Gunning OLS, Adam Attending Unavailable Mally, [facility] Primary Care Unavailable Gunning OLS, Adam Attending Unavailable [place], [facility] Primary Care Unavailable Gunning OLS, Adam Attending Unavailable [place]unning OLS, Adam Attending Unavailable Mally, [facility] Primary Care Unavailable Gunning OLS, Adam Attending Unavailable Mally, [facility] Primary Care Unavailable Mally, [facility] Primary Care Unavailable Gunning OLS, Adam Attending Unavailable [place]unning OLS, Adam Attending Unavailable Mally, [facility] Primary Care Unavailable Gunning OLS, Adam Attending Unavailable [place], [facility] Primary Care Unavailable [place], [facility] Primary Care Unavailable Katsaros OLS, Peter Attending Unavailable Mally, [facility] Primary Care Unavailable Gunning OLS, Adam Attending Unavailable [place]unning OLS, Adam Attending Unavailable [place], [facility] Primary Care Unavailable Allergies Allergy Classification Reported Allergen(s) Allergy Type Date of Onset Reaction(s) Facility Anti-Epileptic Agents (1 source) lamoTRIgine Drug Allergy 8 [facility] Work Phone: Bee pollen (1 source) Bee pollen Drug Allergy 0 Other: See Comments [facility] Corticosteroids (1 source) fluticasone Drug Allergy 3 Other: See [facility] Work Phone: OLANZapine (1 source) OLANZapine Drug Allergy 7 [facility] (20 sources) Bee pollen; Translations: [BEE POLLEN] Drug Allergy 0 Other: See Comments [place], [place] (20 sources) fluticasone Drug Allergy 0 ANDREA [place] (20 sources) lamoTRIgine; Translations: [LAMOTRIGINE] Drug Allergy 8 [place], [place] (20 sources) OLANZapine; Translations: [OLANZAPINE] Drug Allergy 7 [place] (20 sources) fluticasone; Translations: [FLUTICASONE PROPIONATE] Drug Allergy 3 Other: See Comments [facility] Work Phone: (1 source) fluticasone Drug Allergy 0 [facility] Repository (1 source) lamoTRIgine Drug Allergy 9 [facility] (1 source) OLANZapine Drug Allergy 0 [facility] Medications Current Medications Medication Drug [...] th every 8 hours as needed. 500mg [id number] actuat albuterol 0.09 mg/actuat metered dose [...] Start: 08-08-2019 take 1 tablet by donovan th once daily atorvastatin (LIPITOR) 20 mg tablet [...] Start: 02-14-2020 take 1 capsule by mo [facility] once daily Cholecalciferol (Vitamin D3) [...] Comment on above: [facility]. dexamethasone 6 mg oral tablet (2 sources) Corticosteroid Start: 10-29-2020 End: 11-08-2020 take 6 mg by mouth once daily 6 mg, Oral, DAILY, First dose on Tue10/29/20 at 0900, For 10 doses Start: 10-28-2020 End: 10-28-2020 dexamethasone (DECADRON) inj ection 6 mg dextromethorphan hydrobromide 2 mg/ml / guaiFENesin 20 mg/ml oral suspension (1 source) Uncompetitive C-qqeaxn-W-aspartate Receptor Antagonist, Sigma-1 Agonist Start: 10-28-2020 take 5 mL by mouth every four hours as needed for cough 5 mL, Oral, EVERY 4 HOURS PRN, Cough, Starting Tue10/28/20 at 1936 docosahexaenoic acid 120 mg / eicosapentaenoic acid 180 mg oral capsule (1 source) take 1 capsule by mouth once daily [place]-3 1000 MG CAPS Take 1 capsule by [...] Start: 03-18-2021 take 1 tablet by donovan once daily furosemide (LASIX) 40 mg tablet [...] 14, 2020 12:00am take 3 tablets by mo [facility] once daily furosemide (LASIX) 20 MG tablet [...] Active Start: 03-06-2021 take 1 capsule by mo [facility] once daily lithium carbonate (ESKALITH) 300 mg capsule Take 300 mg by mouth once daily. 03/06/2021 Active Start: 10-28-2020 take 300 mg by mouth once tommy y 300 mg, Oral, NIGHTLY, First dose on Tue10/28/20 at 2100 Maintain adequate fluid and sodium intake Start: 04-02-2018 take 1 tablet by donovan th once daily at bedtime [place] Carbonate 300 MG tablet extended release Active 300 mg PO TWICE A DAY April 02, 2018 12:00am [facility] Comment on above: Take 150 [...] daily. magnesium hydroxide 240 mg/ml oral suspension (8 sources) take 10 mL by mouth once [...] Take 1 tablet by donovan once daily. omega-3 acid ethyl esters (retirement) 1000 mg oral capsule (1 source) Start: 10-28-2020 take 1 capsule by mouth once daily 1 capsule, Oral, DAILY, First dose on Tue10/28/20 at 2000 [place]-3 Fatty Acids-Fish Oil (20 sources) Start: 02-14-2020 [place]-3 Fatty Acids-Fish Oil Active 1 EACH PO DAILY February 14, 2020 10:03am Start: 02-14-2020 [place]-3 Fatty Acids-Fish Oil Active 1 EACH PO DAILY February 13, 2020 11:00pm Start: 02-14-2020 [place]-3 Fatty Acids-Fish Oil Active 1 EACH PO DAILY February 14, 2020 12:00am [place]-3 Fatty Acids-Fish Oil 1 EACH capsule (11 sources) Start: 02-14-2020 [place]-3 Fatty Acids-Fish Oil 1 EACH capsule Active 1 NMA PO DAILY February 14, 2020 12:00am Start: 02-14-2020 [place]-3 Fatty Acids-Fish Oil 1 EACH capsule Active 1 NMA PO DAILY February 13, 2020 11:00pm Jgqxh-1-WFZ-EPA-Fish Oil 1,0 00 mg (120 mg-180 mg) cap (20 sources) take 1 capsule by mouth once daily Ngiyd-8-UKB-EPA-Fish Oil 1,000 mg (120 mg-180 mg) cap Take 1 capsule by mouth once daily. Active take 1 capsule by mouth once berna ly Pnsaw-8-ZAV-EPA-Fish Oil 1,000 mg (120 mg- 180 mg) cap Take 1 capsule by mouth once daily. 0 Active Comment on above: Take 1 capsule by mo ut[facility] once daily. omeprazole 40 mg delayed release [...] Substituted for Omeprazole (PRILOSEC). polyethylene glycol 3350 41093 mg powder for oral solution (1 source) [...] mg, ORAL, ONCE, 1 dose , On Tue08/09/24 at 0700 Start: 09-29-2021 End: 03-30-2023 acetaminophen [...] on above: Take 2 tablets by mo [facility] as directed. prior to Rituximab infusion. [...] mg, ORAL, ONCE, 1 dose, O n [facility] 08/09/24 at 0700 Start: 03-30-2022 End: 03-30-2023 diphenhydrAMINE (BENADRYL) 5 0 mg capsule Indications: Granulomatosis with polyangiitis, unspecified whether renal involvement (HCC) Take 1 capsule by mouth as directed. prior to Rituximab infusion. 1 capsule 0 03/30/2022 03/30/2023 Active Comment on above: Take 1 capsule by [facility] as directed. prior to Rituximab infusion. [...] 125 mg, INTRAVENOUS, ONCE, 1 dose, On e 02/12/25 at 0930 Start: 08-09-2024 End: 08-09-2024 125 mg, INTRAVENOUS, ONCE, 1 dose, On [place] 08/09/24 at 0700 Start: 03-30-2022 End: 03-30-2023 methylPREDNISolone sodium torrez ccinate (SOLU-MEDROL) 125 mg injection Indications: Granulomatosis with polyangiitis, unspecified whether renal involvement (HCC) Inject 2 mL intravenously as directed. prior to Rituximab infusion. 2 mL 0 03/30/2022 03/30/2023 Active Comment on above: Inject 2 mL intraven ously as directed. prior to Rituximab infusion. Oibzg-5-ZAU-EPA-Fish Oil (FISH OIL) 1,000 mg (120 mg-180 mg) cap (6 sources) take 1 capsule by mouth once daily Xxgnz-1-HVX-EPA-Fish Oil (FISH OIL) 1,000 mg (120 mg-180 [...] Onset: 07-10-2018 08-23-2019 Chronic Chronic kidney disease (3 sources) Chronic kidney disease; Translations: [Stage 3b chronic kidney disease (HCC)] Onset: 12-20-2023 Chronic obstructive pulmonary disease and bronchiectasis (1 source) Chronic obstructive pulmonary disease, unspecified; Translations: [Chronic obstructive pulmonary disease, unspecified] Onset: 06-13-2025 Chronic Congestive heart failure; nonhypertensive (20 sources) Chronic systolic heart failure; Translations: [Chronic systolic (congestive) heart failure] Onset: 03-19-2021 03-19-2021 Chronic Deficiency and other anemia (2 sources) Anemia, unspecified; Translations: [Anemia, unspecified] Onset: 03-29-2025 Episodic Diabetes mellitus with complications (14 sources) 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; Translations: [Type 2 diabetes mellitus with diabetic chronic kidney disease] Onset: 04-07-2017 Resolved: 07-15-2017 07-15-2017 Chronic Diabetes mellitus without complication (2 sources) Type 2 diabetes mellitus without complications; Translations: [Type 2 diabetes mellitus without complications] Onset: 05-11-2025 Chronic Diseases of white blood cells (20 [...] Hypokalemia; Translations: [Hypokalemia] Episodic Gastritis and duodenitis (14 sources) Chronic gastritis; Translations: [Unspecified chronic gastritis [...] 03-02-2019 Episodic Other aftercare (3 sources) Other halfway (current) drug therapy; Translations: [Other terminal worker (current) drug therapy] Onset: 11-14-2019 Episodic Other and ill-defined heart disease (20 sources) Mild left ventricular systolic dysfunction; Translations: [Other ill-defined heart diseases] Onset: 08-20-2019 03-25-2020 Chronic Other circulatory disease (20 sources) Vasculitis; Translations: [Arteritis, unspecified] Onset: 08-11-2016 11-10-2021 Chronic Other congenital anomalies (20 sources) [...] Chronic paranoid schizophrenia; Translations: [Paranoid schizophrenia] Onset: 05-11-2025 03-03-2019 Chronic Spondylosis; intervertebral disc disorders; other [...] unspecified] Onset: 8 08-23-2019 Episodic Epilepsy; convulsions (14 sources) Seizure; Translations: [Unspecified convulsions] Onset: 9 Resolved: 9 08-23-2019 Episodic Gastritis and duodenitis (14 sources) Acute gastritis; Translations: [Acute gastritis without bleeding] Onset: 8 Resolved: 0 02-11-2010 Episodic Nutritional deficiencies (14 sources) Undernutrition; Translations: [Mild protein-calorie malnutrition] Onset: [...] 9 08-23-2019 Episodic Other connective tissue disease (14 sources) Rupture of tendon of foot and ankle; Translations: [Spontaneous rupture of other tendons, unspecified ankle and foot] Onset: 9 Resolved: 6 07-30-2016 Episodic Other connective tissue disease (14 sources) Disorder of Achilles tendon; Translations: [Achilles tendinitis, unspecified leg] Onset: 0 Resolved: 6 07-30-2016 Episodic Other connective tissue disease (14 sources) Enthesopathy; Translations: [Enthesopathy, unspecified] Onset: 1 Resolved: 8 07-10-2018 Episodic Other connective tissue disease (14 sources) Pain of toe of left foot; Translations: [Pain in left toe(s)] Onset: 6 Resolved: 8 07-10-2018 Episodic Other gastrointestinal disorders (14 sources) Constipation; Translations: [Constipation, unspecified] Onset: 3 Resolved: 8 07-10-2018 Episodic Other gastrointestinal disorders (14 sources) Diarrhea; Translations: [Diarrhea, unspecified] Onset: 3 Resolved: 8 07-10-2018 Episodic Other injuries and conditions due to external causes (14 sources) Contusion; Translations: [Other injury of unspecified body region, initial encounter] Onset: 0 Resolved: 6 07-30-2016 Episodic Other nervous system disorders (14 sources) Disorder of brain; Translations: [Encephalopathy, unspecified] [...] Episodic Other nutritional; endocrine; and metabolic disorders (14 sources) Constitutional obesity; Translations: [Other obesity] Onset: 5 Resolved: 8 07-10-2018 Chronic Other screening for suspected conditions (not mental disorders or infectious disease) (20 sources) Electrocardiogram abnormal; Translations: [Abnormal electrocardiogram [ECG] [EKG]] Onset: 9 08-23-2019 Episodic Pneumonia (except that caused by tuberculosis or sexually transmitted disease) (16 sources) Pneumonia due to other virus not elsewhere classified; Translations: [Pneumonia, unspecified organism] Onset: 8 Resolved: 0 10-28-2020 Episodic Rehabilitation care; fitting of prostheses; and adjustment of devices (14 sources) Patient encounter status; Translations: [Other physical therapy] Onset: 1 Resolved: 8 07-10-2018 Episodic Residual codes; unclassified (20 sources) Confusional state; Translations: [Disorientation, unspecified] Onset: 9 01-08-2019 Episodic Residual codes; unclassified (14 sources) Tobacco user; Translations: [Tobacco use] Onset: 9 Resolved: 8 07-10-2018 Episodic Results Test Name Value Interpretation Reference Range Facility Protein+Creatinine Ratio,Uri neon 06-20-2025 PROT:CRE RATIO 227 mg/g CRE High 0-200 [facility] Comment on above: Order Comment: 111.2 Performed By: #### L [id number], L500.4050, L501.9060, L100.0100 #### [facility] [address] [place], [address] Protein (U) [Mass/Vol] 7.7 mg/dL Normal 0.0-12.0 [facility] Comment on above: Order Comment: 111.2 Performed By: #### L [id number], L500.4050, L501.9060, L100.0100 #### [facility] [address] [place], [address] UR CREAT 33.80 mg/dL Low 39.00-259. 00 [facility] Comment on above: Order Comment: 111.2 Performed By: #### L [id number], [id number], L501.9060, L100.0100 #### [facility] [address] [place], [address] CBC W/Diff, Automatedon 08-0 6-2024 Absolute Lymph 1.75 X10 3/uL Normal 0.83-4.51 [facility] Comment on above: Order Comment: 111-2 Performed By: #### L [id number] #### [facility] [address] [place], [address] Absolute Neut 5.4 X10 3/uL Normal 2.0-7.7 [facility] Comment on above: Order Comment: 111-2 Performed By: #### L [id number] #### [facility] [address] [place], [address] Basophils/100 WBC (Bld) 1.0 % Normal 0-1 [facility] Comment on above: Order Comment: 111-2 Performed By: #### L [id number] #### [facility] [address] [place], [address] Eosinophils/100 WBC (Bld) 6.0 % High 0-5 [facility] Comment on above: Order Comment: 111-2 Performed By: #### L [id number] #### [facility] [address] [place], [address] Erythrocyte distribution width (RBC) [Ratio] 12.7 % Normal 11.6-14.6 [facility] Comment on above: Order Comment: 111-2 Performed By: #### L [id number] #### [facility] [address] [place], [address] Hematocrit (Bld) [Volume fraction] 39.2 % Low 40-54 [facility] Comment on above: Order Comment: 111-2 Performed By: #### L [id number] #### [facility] [address] [place], [address] Hemoglobin (Bld) [Mass/Vol] 12.8 g/dL Low 13.0-16.5 [facility] Comment on above: Order Comment: 111-2 Performed By: #### L [id number] #### [facility] [address] [place], [address] IG% 0.500 Normal 0.0-0.9 [facility] Comment on above: Order Comment: 111-2 Result Comment: IG% - Immature Granulocytes (promyelocytes, myelocytes and metamyelocytes) > 1% indicates that a LEFT SHIFT is Present. Performed By: #### L [id number] #### [facility] [address] [place], [address] Lymphocytes/100 WBC (Bld) 20.1 % Normal 19-41 [facility] Comment on above: Order Comment: 111-2 Performed By: #### L [id number] #### [facility] [address] [place], [address] MCH (RBC) [Entitic mass] 30.0 pg Normal 27.0-32.0 [facility] Comment on above: Order Comment: 111-2 Performed By: #### L [id number] #### [facility] [address] [place], [address] MCHC (RBC) [Mass/Vol] 32.7 g/dL Normal 32-36 [facility] Comment on above: Order Comment: 111-2 Performed By: #### L [id number] #### [facility] [address] [place], [address] MCV (RBC) [Entitic vol] 91.8 fL Normal 80-94 [facility] Comment on above: Order Comment: 111-2 Performed By: #### L [id number] #### [facility] [address] [place], [address] Monocytes/100 WBC (Bld) 10.7 % High 0-10 [facility] Comment on above: Order Comment: 111-2 Performed By: #### L [id number] #### [facility] [address] [place], [address] Neutrophils/100 WBC (Bld) 61.7 % Normal 47-70 [facility] Comment on above: Order Comment: 111-2 Performed By: #### L [id number] #### [facility] [address] [place], [address] Nucleated RBC (Bld) [#/Vol] 0 10*3/uL Normal 0-5 [facility] Comment on above: Order Comment: 111-2 Performed By: #### L [id number] #### [facility] [address] [place], [address] Platelet mean volume (Bld) [Entitic vol] 9.5 fL Normal 6.2-12.0 [facility] Comment on above: Order Comment: 111-2 Performed By: #### L [id number] #### [facility] [address] [place], [address] Platelets (Bld) [#/Vol] 247 10*3/uL Normal 150-450 [facility] Comment on above: Order Comment: 111-2 Performed By: #### L [id number] #### [facility] [address] [place], [address] RBC (Bld) [#/Vol] 4.27 10*6/uL Low 4.6-6.2 [facility] Comment on above: Order Comment: 111-2 Performed By: #### L [id number] #### [facility] [address] [place], [address] RDW SD 42.5 fl Normal 35.1-43.9 [facility] Comment on above: Order Comment: 111-2 Performed By: #### L [id number] #### [facility] [address] [place], [address] WBC (Bld) [#/Vol] 8.7 10*3/uL Normal 4.4-11.0 [facility] Comment on above: Order Comment: 111-2 Performed By: #### L [id number] #### [facility] [address] [place], [address] Comprehensive Metabolic Prof [facility] 06-19-2025 Albumin [Mass/Vol] 3.6 g/dL Normal 3.4-4.8 [facility] Comment on above: Order Comment: 111.2 Performed By: #### L [id number], L500.4050, L501.9060, L100.0100 #### [facility] [address] [place], [address] Albumin/Globulin [Mass ratio] 1.4 {ratio} Normal 0.9-2.4 [facility] Comment on above: Order Comment: 111.2 Performed By: #### L [id number], L500.4050, L501.9060, L100.0100 #### [facility] [address] [place], [address] ALK PHOS 91 U/L Normal 40-129 [facility] Comment on above: Order Comment: 111.2 Performed By: #### L 501.2300, L500.4050, L501.9060, L100.0100 #### [facility] [address] [place], [address] ALT [Catalytic activity/Vol] 8 U/L Normal <=46 [facility] Comment on above: Order Comment: 111.2 Performed By: #### L [id number], [id number], L501.9060, L100.0100 #### [facility] [address] [place], [address] AST [Catalytic activity/Vol] 14 U/L Normal <=37 [facility] Comment on above: Order Comment: 111.2 Performed By: #### L 501.2300, [id number], L501.9060, L100.0100 #### [facility] [address] [place], [address] Bilirubin [Mass/Vol] 0.22 mg/dL Normal 0.00-1.30 [facility] Comment on above: Order Comment: 111.2 Performed By: #### L 501.2300, [id number], L501.9060, L100.0100 #### [facility] [address] [place], [address] BUN/CRE 11.3 RATIO Normal 10-20 [facility] Comment on above: Order Comment: 111.2 Performed By: #### L [id number], [id number], L501.9060, L100.0100 #### [facility] [address] [place], [address] Calcium [Mass/Vol] 9.3 mg/dL Normal 7.6-11.0 [facility] Comment on above: Order Comment: 111.2 Performed By: #### L [id number], [id number], L501.9060, L100.0100 #### [facility] [address] [place], [address] Chloride [Moles/Vol] 105 mmol/L Normal 98-108 [facility] Comment on above: Order Comment: 111.2 Performed By: #### L [id number], [id number], L501.9060, L100.0100 #### [facility] [address] [place], [address] CO2 [Moles/Vol] 19.9 mmol/L Low 21.0-32.0 [facility] [facility] Comment on above: Order Comment: 111.2 Performed By: #### L 501.2300, L500.4050, L501.9060, L100.0100 #### [facility] [address] [place], [address] Creatinine [Mass/Vol] 2.26 mg/dL High 0.70-1.20 [facility] Comment on above: Order Comment: 111.2 Performed By: #### L 501.2300, L500.4050, L501.9060, L100.0100 #### [facility] [address] [place], [address] GAP 13 Normal 5-15 [facility] Comment on above: Order Comment: 111.2 Performed By: #### L 501.2300, L500.4050, L501.9060, L100.0100 #### [facility] [address] [place], [address] GFR/1.73 sq M.predicted among non-blacks MDRD (S/P/Bld) [Vol rate/Area] 32 mL/min/{1.73_m2} Low >60 [facility] Comment on above: Order Comment: 111.2 Result Comment: mL/m in/1.73m2 CKD-EPI Creatinine Equation (2020) Performed By: #### L 501.2300, L500.4050, L501.9060, L100.0100 #### [facility] [address] [place], [address] Globulin (S) [Mass/Vol] 2.5 g/dL Normal 2.2-4.2 [facility] Comment on above: Order Comment: 111.2 Performed By: #### L 501.2300, L500.4050, L501.9060, L100.0100 #### [facility] [address] [place], [address] Glucose [Mass/Vol] 122 mg/dL High 70-99 [facility] Comment on above: Order Comment: 111.2 Performed By: #### L 501.2300, L500.4050, L501.9060, L100.0100 #### [facility] [address] [place], [address] Potassium [Moles/Vol] 4.3 mmol/L Normal 3.3-5.1 [facility] Comment on above: Order Comment: 111.2 Performed By: #### L 501.2300, L500.4050, L501.9060, L100.0100 #### [facility] [address] [place], [address] Sodium [Moles/Vol] 137 mmol/L Normal 133-145 [facility] Comment on above: Order Comment: 111.2 Performed By: #### L 501.2300, L500.4050, L501.9060, L100.0100 #### [facility] [address] [place], [address] T PROT 6.1 g/dL Normal 5.9-8.4 [facility] Comment on above: Order Comment: 111.2 Performed By: #### L 501.2300, L500.4050, L501.9060, L100.0100 #### [facility] [address] [place], [address] Urea nitrogen [Mass/Vol] 26 mg/dL High 4-19 [facility] Comment on above: Order Comment: 111.2 Performed By: #### L 501.2300, L500.4050, L501.9060, L100.0100 #### [facility] [address] [place], [address] Lithiumon 06-19-2025 LI 0.56 mmol/L Low 0.60-1.20 [facility] Comment on above: Order Comment: 111-2 Performed By: #### L 501.1400 #### [facility] [address] [place], [address] Phosphoruson 06-19-2025 Phosphate [Mass/Vol] 4.5 mg/dL Normal 2.7-4.5 [facility] Comment on above: Order Comment: 111.2 Performed By: #### L 501.2300, L500.4050, L501.9060, L100.0100 #### [facility] [address] [place], [address] EST Glomerular Filtration Ra meredith 06-05-2025 GFR/1.73 sq M.predicted among non-blacks MDRD (S/P/Bld) [Vol rate/Area] 30 mL/min/{1.73_m2} Low >60 [facility] Comment on above: Order Comment: 111.2 Result Comment: mL/m in/1.73m2 CKD-EPI Creatinine Equation (2020) Performed By: #### L 501.2300, L500.4050, L501.9060, L100.0100 #### [facility] [address] [place], [address] Urine Cultureon 05-29-2025 URC Mixed Gram Positive Organisms [place] Count 11,000-25,000 MIXC Mixed contaminants. Submit a new specimen if indicated. Normal [facility] Comment on above: Performed By: #### L 501.2300, L500.4050, L501.9060, L100.0100 #### [facility] [address] [place], [address] CBC W/Diff, Automatedon 05-14 Absolute Lymph 2.10 X10 3/uL Normal 0.83-4.51 [facility] Comment on above: Order Comment: 111.2 Performed By: #### L 501.2300, L500.4050, L501.9060, L100.0100 #### [facility] [address] [place], [address] Absolute Neut 5.2 X10 3/uL Normal 2.0-7.7 [facility] Comment on above: Order Comment: 111.2 Performed By: #### L 501.2300, L500.4050, L501.9060, L100.0100 #### [facility] [address] [place], [address] Basophils/100 WBC (Bld) 1.0 % Normal 0-1 [facility] Comment on above: Order Comment: 111.2 Performed By: #### L 501.2300, L500.4050, L501.9060, L100.0100 #### [facility] [address] [place], [address] Eosinophils/100 WBC (Bld) 5.5 % High 0-5 [facility] Comment on above: Order Comment: 111.2 Performed By: #### L 501.2300, L500.4050, L501.9060, L100.0100 #### [facility] [address] [place], [address] Erythrocyte distribution width (RBC) [Ratio] 12.5 % Normal 11.6-14.6 [facility] Comment on above: Order Comment: 111.2 Performed By: #### L 501.2300, L500.4050, L501.9060, L100.0100 #### [facility] [address] [place], [address] Hematocrit (Bld) [Volume fraction] 39.7 % Low 40-54 [facility] Comment on above: Order Comment: 111.2 Performed By: #### L 501.2300, L500.4050, L501.9060, L100.0100 #### [facility] [address] [place], [address] Hemoglobin (Bld) [Mass/Vol] 13.3 g/dL Normal 13.0-16.5 [facility] Comment on above: Order Comment: 111.2 Performed By: #### L 501.2300, L500.4050, L501.9060, L100.0100 #### [facility] [address] [place], [address] IG% 0.700 Normal 0.0-0.9 [facility] Comment on above: Order Comment: 111.2 Result Comment: IG% - Immature Granulocytes (promyelocytes, myelocytes and metamyelocytes) > 1% indicates that a LEFT SHIFT is Present. Performed By: #### L 501.2300, L500.4050, L501.9060, L100.0100 #### [facility] [address] [place], [address] Lymphocytes/100 WBC (Bld) 23.5 % Normal 19-41 [facility] Comment on above: Order Comment: 111.2 Performed By: #### L 501.2300, L500.4050, L501.9060, L100.0100 #### [facility] [address] [place], [address] MCH (RBC) [Entitic mass] 30.2 pg Normal 27.0-32.0 [facility] Comment on above: Order Comment: 111.2 Performed By: #### L 501.2300, L500.4050, L501.9060, L100.0100 #### [facility] [address] [place], [address] MCHC (RBC) [Mass/Vol] 33.5 g/dL Normal 32-36 [facility] Comment on above: Order Comment: 111.2 Performed By: #### L 501.2300, L500.4050, L501.9060, L100.0100 #### [facility] [address] [place], [address] MCV (RBC) [Entitic vol] 90.0 fL Normal 80-94 [facility] Comment on above: Order Comment: 111.2 Performed By: #### L 501.2300, L500.4050, L501.9060, L100.0100 #### [facility] [address] [place], [address] Monocytes/100 WBC (Bld) 11.1 % High 0-10 [facility] Comment on above: Order Comment: 111.2 Performed By: #### L 501.2300, L500.4050, L501.9060, L100.0100 #### [facility] [address] [place], [address] Neutrophils/100 WBC (Bld) 58.2 % Normal 47-70 [facility] Comment on above: Order Comment: 111.2 Performed By: #### L 501.2300, L500.4050, L501.9060, L100.0100 #### [facility] [address] [place], [address] Nucleated RBC (Bld) [#/Vol] 0 10*3/uL Normal 0-5 [facility] Comment on above: Order Comment: 111.2 Performed By: #### L 501.2300, L500.4050, L501.9060, L100.0100 #### [facility] [address] [place], [address] Platelet mean volume (Bld) [Entitic vol] 9.2 fL Normal 6.2-12.0 [facility] Comment on above: Order Comment: 111.2 Performed By: #### L 501.2300, L500.4050, L501.9060, L100.0100 #### [facility] [address] [place], [address] Platelets (Bld) [#/Vol] 235 10*3/uL Normal 150-450 [facility] Comment on above: Order Comment: 111.2 Performed By: #### L 501.2300, L500.4050, L501.9060, L100.0100 #### [facility] [address] [place], [address] RBC (Bld) [#/Vol] 4.41 10*6/uL Low 4.6-6.2 [facility] Comment on above: Order Comment: 111.2 Performed By: #### L 501.2300, L500.4050, L501.9060, L100.0100 #### [facility] [address] [place], [address] RDW SD 41.1 fl Normal 35.1-43.9 [facility] Comment on above: Order Comment: 111.2 Performed By: #### L 501.2300, L500.4050, L501.9060, L100.0100 #### [facility] [address] [place], [address] WBC (Bld) [#/Vol] 8.9 10*3/uL Normal 4.4-11.0 [facility] Comment on above: Order Comment: 111.2 Performed By: #### L 501.2300, L500.4050, L501.9060, L100.0100 #### [facility] [address] [place], [address] Protein+Creatinine Ratio,Uri neon 05-27-2025 PROT:CRE RATIO 172 mg/g CRE Normal 0-200 [facility] Comment on above: Performed By: #### L 501.2300, L500.4050, L501.9060, L100.0100 #### [facility] [address] [place], [address] PROTEIN,UR.RAN. < 6.0 Normal 0.0-12.0 [facility] Comment on above: Performed By: #### L 501.2300, L500.4050, L501.9060, L100.0100 #### [facility] [address] [place], [address] UR CREAT 25.50 mg/dL Low 39.00-259. 00 [facility] Comment on above: Performed By: #### L 501.2300, L500.4050, L501.9060, L100.0100 #### [facility] [address] [place], [address] Uric Acidon 05-27-2025 URIC 6.3 mg/dL Normal 3.5-7.2 [facility] Comment on above: Order Comment: 111.2 [id number] Result Comment: The drugs N-Acetylcysteine and Metamizole may falsely depress this assay. Performed By: #### L 501.9060 #### [facility] [address] [place], [address] Urinalysis, Routine (Dipstic k)on 05-27-2025 BILIRUBIN URINE Negative Normal Negative [facility] Comment on above: Order Comment: 111.2 Performed By: #### L 501.2300, L500.4050, L501.9060, L100.0100 #### [facility] [address] [place], [address] Clarity (U) Clear Normal Clear [facility] Comment on above: Order Comment: 111.2 Performed By: #### L 501.2300, L500.4050, L501.9060, L100.0100 #### [facility] [address] [place], [address] Color (U) Straw Normal Yellow [facility] Comment on above: Order Comment: 111.2 Performed By: #### L 501.2300, L500.4050, L501.9060, L100.0100 #### [facility] [address] [place], [address] GLUCOSE, UR Normal Normal Normal [facility] Comment on above: Order Comment: 111.2 Performed By: #### L 501.2300, L500.4050, L501.9060, L100.0100 #### [facility] [address] [place], [address] KETONE UR Negative Normal Negative [facility] Comment on above: Order Comment: 111.2 Performed By: #### L 501.2300, L500.4050, L501.9060, L100.0100 #### [facility] [address] [place], [address] LEUK ESTERASE 500 /ul Abnormal Negative [facility] Comment on above: Order Comment: 111.2 Performed By: #### L 501.2300, L500.4050, L501.9060, L100.0100 #### [facility] [address] [place], [address] Nitrite Ql (U) Negative Normal Negative [facility] Comment on above: Order Comment: 111.2 Performed By: #### L 501.2300, L500.4050, L501.9060, L100.0100 #### [facility] [address] [place], [address] OCCULT BLOOD-UR Negative Normal Negative [facility] Comment on above: Order Comment: 111.2 Performed By: #### L 501.2300, L500.4050, L501.9060, L100.0100 #### [facility] [address] [place], [address] pH UR 6.5 Normal 5.0 - 8.0 [facility] Comment on above: Order Comment: 111.2 Performed By: #### L 501.2300, L500.4050, L501.9060, L100.0100 #### [facility] [address] [place], [address] PROT DIPSTX Negative Normal Negative [facility] Comment on above: Order Comment: 111.2 Performed By: #### L 501.2300, L500.4050, L501.9060, L100.0100 #### [facility] [address] [place], [address] SP.GR. DIPSTX 1.005 Normal 1.002-1.03 0 [facility] Comment on above: Order Comment: 111.2 Performed By: #### L 501.2300, L500.4050, L501.9060, L100.0100 #### [facility] [address] [place], [address] UROBILI Normal Normal Normal [facility] Comment on above: Order Comment: 111.2 Performed By: #### L 501.2300, L500.4050, L501.9060, L100.0100 #### [facility] [address] [place], [address] [facility] Erythrocyte distribution width (RBC) [Ratio] 12.7 % Normal 11.6-14.6 [facility] Comment on above: Order Comment: 111.2 20250423 Performed By: #### L 501.2300, L500.4050, L501.9060, L100.0100 #### [facility] [address] [place], [address] Hematocrit (Bld) [Volume fraction] 39.2 % Low 40-54 [facility] Comment on above: Order Comment: 111.2 20250423 Performed By: #### L 501.2300, L500.4050, L501.9060, L100.0100 #### [facility] [address] [place], [address] Hemoglobin (Bld) [Mass/Vol] 12.9 g/dL Low 13.0-16.5 [facility] Comment on above: Order Comment: 111.2 20250423 Performed By: #### L 501.2300, L500.4050, L501.9060, L100.0100 #### [facility] [address] [place], [address] MCH (RBC) [Entitic mass] 30.1 pg Normal 27.0-32.0 [facility] Comment on above: Order Comment: 111.2 20250423 Performed By: #### L 501.2300, L500.4050, L501.9060, L100.0100 #### [facility] [address] [place], [address] MCHC (RBC) [Mass/Vol] 32.9 g/dL Normal 32-36 [facility] Comment on above: Order Comment: 111.2 20250423 Performed By: #### L 501.2300, L500.4050, L501.9060, L100.0100 #### [facility] [address] [place], [address] MCV (RBC) [Entitic vol] 91.6 fL Normal 80-94 [facility] Comment on above: Order Comment: 111.20250423 Performed By: #### L 501.2300, L500.4050, L501.9060, L100.0100 #### [facility] [address] [place], [address] Platelet mean volume (Bld) [Entitic vol] 9.2 fL Normal 6.2-12.0 [facility] Comment on above: Order Comment: 111.20250423 Performed By: #### L 501.2300, L500.4050, L501.9060, L100.0100 #### [facility] [address] [place], [address] Platelets (Bld) [#/Vol] 247 10*3/uL Normal 150-450 [facility] Comment on above: Order Comment: 111.2 20250423 Performed By: #### L 501.2300, L500.4050, L501.9060, L100.0100 #### [facility] [address] [place], [address] RBC (Bld) [#/Vol] 4.28 10*6/uL Low 4.6-6.2 [facility] Comment on above: Order Comment: 111.2 20250423 Performed By: #### L 501.2300, L500.4050, L501.9060, L100.0100 #### [facility] [address] [place], [address] RDW SD 42.1 fl Normal 35.1-43.9 [facility] Comment on above: Order Comment: 111.2 20250423 Performed By: #### L 501.2300, L500.4050, L501.9060, L100.0100 #### [facility] [address] [place], [address] WBC (Bld) [#/Vol] 10.3 10*3/uL Normal 4.4-11.0 [facility] Comment on above: Order Comment: 111.2 20250423 Performed By: #### L 501.2300, L500.4050, L501.9060, L100.0100 #### [facility] [address] [place], [address] Comprehensive Metabolic Prof aron 05-24-2025 Albumin [Mass/Vol] 3.7 g/dL Normal 3.4-4.8 [facility] Comment on above: Order Comment: 111.2 20250423 Performed By: #### L 501.2300, L500.4050, L501.9060, L100.0100 #### [facility] [address] [place], [address] Albumin/Globulin [Mass ratio] 1.6 {ratio} Normal 0.9-2.4 [facility] Comment on above: Order Comment: 111.2 20250423 Performed By: #### L 501.2300, L500.4050, L501.9060, L100.0100 #### [facility] [address] [place], [address] ALK PHOS 80 U/L Normal 40-129 [facility] Comment on above: Order Comment: 111.2 20250423 Performed By: #### L 501.2300, L500.4050, L501.9060, L100.0100 #### [facility] [address] [place], [address] ALT [Catalytic activity/Vol] 10 U/L Normal <=46 [facility] Comment on above: Order Comment: 111.2 20250423 Performed By: #### L 501.2300, L500.4050, L501.9060, L100.0100 #### [facility] [address] [place], [address] AST [Catalytic activity/Vol] 12 U/L Normal <=37 [facility] Comment on above: Order Comment: 111.2 20250423 Performed By: #### L 501.2300, L500.4050, L501.9060, L100.0100 #### [facility] [address] [place], [address] Bilirubin [Mass/Vol] 0.15 mg/dL Normal 0.00-1.30 [facility] Comment on above: Order Comment: 111.2 20250423 Performed By: #### L 501.2300, L500.4050, L501.9060, L100.0100 #### [facility] [address] [place], [address] BUN/CRE 11.9 RATIO Normal 10-20 [facility] Comment on above: Order Comment: 111.2 20250423 Performed By: #### L 501.2300, L500.4050, L501.9060, L100.0100 #### [facility] [address] [place], [address] Calcium [Mass/Vol] 9.2 mg/dL Normal 7.6-11.0 [facility] Comment on above: Order Comment: 111.2 20250423 Performed By: #### L 501.2300, L500.4050, L501.9060, L100.0100 #### [facility] [address] [place], [address] Chloride [Moles/Vol] 107 mmol/L Normal 98-108 [facility] Comment on above: Order Comment: 111.2 20250423 Performed By: #### L 501.2300, L500.4050, L501.9060, L100.0100 #### [facility] [address] [place], [address] CO2 [Moles/Vol] 21.9 mmol/L Normal 21.0-32.0 [facility] Comment on above: Order Comment: 111.2 20250423 Performed By: #### L 501.2300, L500.4050, L501.9060, L100.0100 #### [facility] [address] [place], [address] Creatinine [Mass/Vol] 2.10 mg/dL High 0.70-1.20 [facility] Comment on above: Order Comment: 111.2 20250423 Performed By: #### L 501.2300, L500.4050, L501.9060, L100.0100 #### [facility] [address] [place], [address] GAP 10 Normal 5-15 [facility] Comment on above: Order Comment: 111.2 20250423 Performed By: #### L 501.2300, L500.4050, L501.9060, L100.0100 #### [facility] [address] [place], [address] GFR/1.73 sq M.predicted among non-blacks MDRD (S/P/Bld) [Vol rate/Area] 35 mL/min/{1.73_m2} Low >60 [facility] Comment on above: Order Comment: 111.2 20250423 Result Comment: mL/m in/1.73m2 CKD-EPI Creatinine Equation (2020) Performed By: #### L 501.2300, L500.4050, L501.9060, L100.0100 #### [facility] [address] [place], [address] Globulin (S) [Mass/Vol] 2.3 g/dL Normal 2.2-4.2 [facility] Comment on above: Order Comment: 111.2 20250423 Performed By: #### L 501.2300, L500.4050, L501.9060, L100.0100 #### [facility] [address] [place], [address] Glucose [Mass/Vol] 116 mg/dL High 70-99 [facility] Comment on above: Order Comment: 111.2 20250423 Performed By: #### L 501.2300, L500.4050, L501.9060, L100.0100 #### [facility] [address] [place], [address] Potassium [Moles/Vol] 4.4 mmol/L Normal 3.3-5.1 [facility] Comment on above: Order Comment: 111.2 20250423 Performed By: #### L 501.2300, L500.4050, L501.9060, L100.0100 #### [facility] [address] [place], [address] Sodium [Moles/Vol] 139 mmol/L Normal 133-145 [facility] Comment on above: Order Comment: 111.2 20250423 Performed By: #### L 501.2300, L500.4050, L501.9060, L100.0100 #### [facility] [address] [place], [address] T PROT 6.0 g/dL Normal 5.9-8.4 [facility] Comment on above: Order Comment: 111.2 20250423 Performed By: #### L 501.2300, L500.4050, L501.9060, L100.0100 #### [facility] [address] [place], [address] Urea nitrogen [Mass/Vol] 25 mg/dL High -19 [facility] Comment on above: Order Comment: 111.2 20250423 Performed By: #### L 501.2300, L500.4050, L501.9060, L100.0100 #### [facility] [address] [place], [address] Lithiumon 05-02-2025 LI 0.53 mmol/L Low 0.60-1.20 [facility] Comment on above: Order Comment: 111.2 20250501 Performed By: #### L 501.9060 #### [facility] [address] [place], [address] Serum or plasma uric acid me asurement (mass/volume)Ordered By: Alfredo Phipps on 04-26-2025 Urate [Mass/Vol] 6.3 mg/dL 3.5-7.2 [facility] Comment on above: The drugs N-Acetylcy steine and Metamizole may falsely depress this assay. Uric Acidon 04-26-2025 URIC 6.3 mg/dL Normal 3.5-7.2 [facility] Comment on above: Order Comment: 111-2 Result Comment: The drugs N-Acetylcysteine and Metamizole may falsely depress this assay. Performed By: #### L 501.1400 #### [facility] [address] [place], [address] Absolute lymphocyte countOrd ered By: Adam Ferraro on 04-24-2025 Lymphocytes Auto (Unsp spec) [#/Vol] 2.17 10*3/uL 0.83-4.51 [facility] Absolute neutrophil countOrd ered By: Adam Ferraro on 04-24-2025 Neutrophils (Bld) [#/Vol] 6.4 10*3/uL 2.0-7.7 [facility] Anion gap in Serum or Plasma Ordered By: Adam Ferraro on 04-24-2025 Anion gap [Moles/Vol] 12 mmol/L 5-15 [facility] Automated lymphocyte count a s percentage of total leukocytesOrdered By: Adam Ferraro on 04-24-2025 Lymphocytes/100 WBC Auto (Unsp spec) 21.0 % - [facility] BUN/creatinine ratioOrdered By: Adam Ferraro on 04-24-2025 Urea nitrogen/Creatinine [Mass ratio] 10.5 mg/mg 10- [facility] Basophil percentageOrdered B y: Adam Ferraro on 04-24-2025 Basophils/100 WBC (Bld) 1.1 % High 0-1 [facility] Bilirubin, totalOrdered By: Adam Ferraro on 04-24-2025 Bilirubin [Mass/Vol] 0.16 mg/dL 0.00-1.30 [facility] CBC W/Diff, Automatedon 04-14 Absolute Lymph 2.17 X10 3/uL Normal 0.83-4.51 [facility] Comment on above: Order Comment: 111.2 Performed By: #### L 501.2300, L500.4050, L501.9060, L100.0100 #### [facility] [address] [place], [address] Absolute Neut 6.4 X10 3/uL Normal 2.0-7.7 [facility] Comment on above: Order Comment: 111.2 Performed By: #### L 501.2300, L500.4050, L501.9060, L100.0100 #### [facility] [address] [place], [address] Basophils/100 WBC (Bld) 1.1 % High 0-1 [facility] Comment on above: Order Comment: 111.2 Performed By: #### L 501.2300, L500.4050, L501.9060, L100.0100 #### [facility] [address] [place], [address] Eosinophils/100 WBC (Bld) 5.1 % High 0-5 [facility] Comment on above: Order Comment: 111.2 Performed By: #### L 501.2300, L500.4050, L501.9060, L100.0100 #### [facility] [address] [place], [address] Erythrocyte distribution width (RBC) [Ratio] 13.1 % Normal 11.6-14.6 [facility] Comment on above: Order Comment: 111.2 Performed By: #### L 501.2300, L500.4050, L501.9060, L100.0100 #### [facility] [address] [place], [address] Hematocrit (Bld) [Volume fraction] 38.2 % Low 40-54 [facility] Comment on above: Order Comment: 111.2 Performed By: #### L 501.2300, L500.4050, L501.9060, L100.0100 #### [facility] [address] [place], [address] Hemoglobin (Bld) [Mass/Vol] 12.7 g/dL Low 13.0-16.5 [facility] Comment on above: Order Comment: 111.2 Performed By: #### L 501.2300, L500.4050, L501.9060, L100.0100 #### [facility] [address] [place], [address] IG% 0.700 Normal 0.0-0.9 [facility] Comment on above: Order Comment: 111.2 Result Comment: IG% - Immature Granulocytes (promyelocytes, myelocytes and metamyelocytes) > 1% indicates that a LEFT SHIFT is Present. Performed By: #### L 501.2300, L500.4050, L501.9060, L100.0100 #### [facility] [address] [place], [address] Lymphocytes/100 WBC (Bld) 21.0 % Normal 19-41 [facility] Comment on above: Order Comment: 111.2 Performed By: #### L 501.2300, L500.4050, L501.9060, L100.0100 #### [facility] [address] [place], [address] MCH (RBC) [Entitic mass] 30.4 pg Normal 27.0-32.0 [facility] Comment on above: Order Comment: 111.2 Performed By: #### L 501.2300, L500.4050, L501.9060, L100.0100 #### [facility] [address] [place], [address] MCHC (RBC) [Mass/Vol] 33.2 g/dL Normal 32-36 [facility] Comment on above: Order Comment: 111.2 Performed By: #### L 501.2300, L500.4050, L501.9060, L100.0100 #### [facility] [address] [place], [address] MCV (RBC) [Entitic vol] 91.4 fL Normal 80-94 [facility] Comment on above: Order Comment: 111.2 Performed By: #### L 501.2300, L500.4050, L501.9060, L100.0100 #### [facility] [address] [place], [address] Monocytes/100 WBC (Bld) 9.9 % Normal 0-10 [facility] Comment on above: Order Comment: 111.2 Performed By: #### L 501.2300, L500.4050, L501.9060, L100.0100 #### [facility] [address] [place], [address] Neutrophils/100 WBC (Bld) 62.2 % Normal 47-70 [facility] Comment on above: Order Comment: 111.2 Performed By: #### L 501.2300, L500.4050, L501.9060, L100.0100 #### [facility] [address] [place], [address] Nucleated RBC (Bld) [#/Vol] 0 10*3/uL Normal 0-5 [facility] Comment on above: Order Comment: 111.2 Performed By: #### L 501.2300, L500.4050, L501.9060, L100.0100 #### [facility] [address] [place], [address] Platelet mean volume (Bld) [Entitic vol] 9.4 fL Normal 6.2-12.0 [facility] Comment on above: Order Comment: 111.2 Performed By: #### L 501.2300, L500.4050, L501.9060, L100.0100 #### [facility] [address] [place], [address] Platelets (Bld) [#/Vol] 245 10*3/uL Normal 150-450 [facility] Comment on above: Order Comment: 111.2 Performed By: #### L 501.2300, L500.4050, L501.9060, L100.0100 #### [facility] [address] [place], [address] RBC (Bld) [#/Vol] 4.18 10*6/uL Low 4.6-6.2 [facility] Comment on above: Order Comment: 111.2 Performed By: #### L 501.2300, L500.4050, L501.9060, L100.0100 #### [facility] [address] [place], [address] RDW SD 43.9 fl Normal 35.1-43.9 [facility] Comment on above: Order Comment: 111.2 Performed By: #### L 501.2300, L500.4050, L501.9060, L100.0100 #### [facility] [address] [place], [address] WBC (Bld) [#/Vol] 10.3 10*3/uL Normal 4.4-11.0 [facility] Comment on above: Order Comment: 111.2 Performed By: #### L 501.2300, L500.4050, L501.9060, L100.0100 #### [facility] [address] [place], [address] Carbon dioxide, total [Moles /volume] in Central venous bloodOrdered By: Adam Ferraro on 04-24-2025 CO2 [Moles/Vol] 21.9 mmol/L 21.0-32.0 [facility] Chloride assayOrdered By: Sabino Ferraro on 04-24-2025 Chloride [Moles/Vol] 107 mmol/L 98-108 [facility] Comprehensive Metabolic Prof ilon 04-24-2025 Albumin [Mass/Vol] 3.5 g/dL Normal 3.4-4.8 [facility] Comment on above: Order Comment: 111.2 Performed By: #### L 501.2300, L500.4050, L501.9060, L100.0100 #### [facility] [address] [place], [address] Albumin/Globulin [Mass ratio] 1.5 {ratio} Normal 0.9-2.4 [facility] Comment on above: Order Comment: 111.2 Performed By: #### L 501.2300, L500.4050, L501.9060, L100.0100 #### [facility] [address] [place], [address] ALK PHOS 76 U/L Normal 40-129 [facility] Comment on above: Order Comment: 111.2 Performed By: #### L 501.2300, L500.4050, L501.9060, L100.0100 #### [facility] [address] [place], [address] ALT [Catalytic activity/Vol] 11 U/L Normal <=46 [facility] Comment on above: Order Comment: 111.2 Performed By: #### L 501.2300, L500.4050, L501.9060, L100.0100 #### [facility] [address] [place], [address] AST [Catalytic activity/Vol] 16 U/L Normal <=37 [facility] Comment on above: Order Comment: 111.2 Performed By: #### L 501.2300, L500.4050, L501.9060, L100.0100 #### [facility] [address] [place], [address] Bilirubin [Mass/Vol] 0.16 mg/dL Normal 0.00-1.30 [facility] Comment on above: Order Comment: 111.2 Performed By: #### L 501.2300, L500.4050, L501.9060, L100.0100 #### [facility] [address] [place], [address] BUN/CRE 10.5 RATIO Normal 10-20 [facility] Comment on above: Order Comment: 111.2 Performed By: #### L 501.2300, L500.4050, L501.9060, L100.0100 #### [facility] [address] [place], [address] Calcium [Mass/Vol] 9.3 mg/dL Normal 7.6-11.0 [facility] Comment on above: Order Comment: 111.2 Performed By: #### L 501.2300, L500.4050, L501.9060, L100.0100 #### [facility] [address] [place], [address] Chloride [Moles/Vol] 107 mmol/L Normal 98-108 [facility] Comment on above: Order Comment: 111.2 Performed By: #### L 501.2300, L500.4050, L501.9060, L100.0100 #### [facility] [address] [place], [address] CO2 [Moles/Vol] 21.9 mmol/L Normal 21.0-32.0 [facility] Comment on above: Order Comment: 111.2 Performed By: #### L 501.2300, L500.4050, L501.9060, L100.0100 #### [facility] [address] [place], [address] Creatinine [Mass/Vol] 2.41 mg/dL High 0.70-1.20 [facility] Comment on above: Order Comment: 111.2 Performed By: #### L 501.2300, L500.4050, L501.9060, L100.0100 #### [facility] [address] [place], [address] GAP 12 Normal 5-15 [facility] Comment on above: Order Comment: 111.2 Performed By: #### L 501.2300, L500.4050, L501.9060, L100.0100 #### [facility] [address] [place], [address] GFR/1.73 sq M.predicted among non-blacks MDRD (S/P/Bld) [Vol rate/Area] 30 mL/min/{1.73_m2} Low >60 [facility] Comment on above: Order Comment: 111.2 Result Comment: mL/m in/1.73m2 CKD-EPI Creatinine Equation (2020) Performed By: #### L 501.2300, L500.4050, L501.9060, L100.0100 #### [facility] [address] [place], [address] Globulin (S) [Mass/Vol] 2.3 g/dL Normal 2.2-4.2 [facility] Comment on above: Order Comment: 111.2 Performed By: #### L 501.2300, L500.4050, L501.9060, L100.0100 #### [facility] [address] [place], [address] Glucose [Mass/Vol] 123 mg/dL High 70-99 [facility] Comment on above: Order Comment: 111.2 Performed By: #### L 501.2300, L500.4050, L501.9060, L100.0100 #### [facility] [address] [place], [address] Potassium [Moles/Vol] 4.6 mmol/L Normal 3.3-5.1 [facility] Comment on above: Order Comment: 111.2 Performed By: #### L 501.2300, L500.4050, L501.9060, L100.0100 #### [facility] [address] [place], [address] Sodium [Moles/Vol] 140 mmol/L Normal 133-145 [facility] Comment on above: Order Comment: 111.2 Performed By: #### L 501.2300, L500.4050, L501.9060, L100.0100 #### [facility] [address] [place], [address] T PROT 5.9 g/dL Normal 5.9-8.4 [facility] Comment on above: Order Comment: 111.2 Performed By: #### L 501.2300, L500.4050, L501.9060, L100.0100 #### [facility] [address] [place], [address] Urea nitrogen [Mass/Vol] 25 mg/dL High 4-19 [facility] Comment on above: Order Comment: 111.2 Performed By: #### L 501.2300, L500.4050, L501.9060, L100.0100 #### [facility] [address] [place], [address] Eosinophil percentageOrdered By: Adam Ferraro on 04-24-2025 Eosinophils/100 WBC (Bld) 5.1 % High 0-5 [facility] Erythrocyte distribution wid th ratioOrdered By: Adam Ferraro on 04-24-2025 Erythrocyte distribution width (RBC) [Ratio] 13.1 % 11.6-14.6 [facility] Erythrocyte distribution wid th standard deviationOrdered By: Adam Ferraro on 04-24-2025 Erythrocyte distribution width (RBC) [Ratio] 43.9 fl 35.1-43.9 [facility] Glomerular filtration rate ( GFR) estimation/1.73 sq m using serum, plasma, or whole bOrdered By: Adam Ferraro on 04-24-2025 GFR/1.73 sq M.predicted among non-blacks MDRD (S/P/Bld) [Vol rate/Area] 30 mL/min/{1.73_m2} Low >60 [facility] Comment on above: mL/min/1.73m2 CKD-EP I Creatinine Equation (2020) Hematocrit Auto (Bld) [Volum e fraction]Ordered By: Adam Ferraro on 04-24-2025 Hematocrit (Bld) [Volume fraction] 38.2 % Low 40-54 [facility] Hemoglobin measurementOrdere d By: Adam Ferraro on 04-24-2025 Hemoglobin (Bld) [Mass/Vol] 12.7 g/dL Low 13.0-16.5 [facility] Immature granulocytes/100 WB C Auto (Bld)Ordered By: Adam Ferraro on 04-24-2025 Immature granulocytes/100 WBC (Bld) 0.700 % 0.0-0.9 [facility] Comment on above: IG% - Immature Granu locytes (promyelocytes, myelocytes and metamyelocytes) > 1% indicates that a LEFT SHIFT is Present. Laboratory - Chemistry and C hemistry - challengeOrdered By: Adam Ferraro on 04-24-2025 AST [Catalytic activity/Vol] 16 U/L <38 [facility] Lithiumon 04-24-2025 LI 0.60 mmol/L Normal 0.60-1.20 [facility] Comment on above: Order Comment: 111.2 [id number] Performed By: #### L 501.2300, L500.4050, L501.9060, L100.0100 #### [facility] [address] [place], [address] MCV (mean corpuscular volume ) determinationOrdered By: Adam Ferraro on 04-24-2025 MCV (RBC) [Entitic vol] 91.4 fL 80-94 [facility] Mean corpuscular hemoglobin (MCH) determinationOrdered By: Adam Ferraro on 04-24-2025 MCH (RBC) [Entitic mass] 30.4 pg 27.0-32.0 [facility] Mean corpuscular hemoglobin concentration (MCHC) determinationOrdered By: Adam Ferraro on 04-24-2025 MCHC (RBC) [Mass/Vol] 33.2 g/dL 32-36 [facility] Mean platelet volume determi nationOrdered By: Adam Ferraro on 04-24-2025 Platelet mean volume (Bld) [Entitic vol] 9.4 fL 6.2-12.0 [facility] Monocyte percentageOrdered B y: Adam Ferraro on 04-24-2025 Monocytes/100 WBC (Bld) 9.9 % 0-10 [facility] Neutrophil percentageOrdered By: Adam Ferraro on 04-24-2025 Neutrophils/100 WBC (Bld) 62.2 % 47-70 [facility] Nucleated red blood cell per centageOrdered By: Adam Ferraro on 04-24-2025 Nucleated RBC/100 WBC (Bld) [Ratio] 0 % 0-5 [facility] Phosphoruson 04-24-2025 Phosphate [Mass/Vol] 4.8 mg/dL High 2.7-4.5 [facility] Comment on above: Order Comment: 111.2 Performed By: #### L 501.2300, L500.4050, L501.9060, L100.0100 #### [facility] [address] [place], [address] Platelet countOrdered By: Sabino Ferraro on 04-24-2025 Platelets (Bld) [#/Vol] 245 10*3/uL 150-450 [facility] Potassium measurement (mass/ volume)Ordered By: Adam Ferraro on 04-24-2025 Potassium (Unsp spec) [Mass/Vol] 4.6 mmol/L 3.3-5.1 [facility] RBC Auto (Bld) [#/Vol]Ordere d By: Adam Ferraro on 04-24-2025 RBC (Bld) [#/Vol] 4.18 10*6/uL Low 4.6-6.2 [facility] Serum creatinine measurement (mass/volume)Ordered By: Adam Ferraro on 04-24-2025 Creatinine [Mass/Vol] 2.41 mg/dL High 0.70-1.20 [facility] Serum globulin measurementOr dered By: Adam Ferraro on 04-24-2025 Globulin (S) [Mass/Vol] 2.3 g/dL 2.2-4.2 [facility] Serum glucose measurement (m ass/volume)Ordered By: Adam Ferraro on 04-24-2025 Glucose [Mass/Vol] 123 mg/dL High 70-99 [facility] Serum or plasma alanine sesay otransferase (ALT) measurementOrdered By: Adam Ferraro on 04-24-2025 ALT [Catalytic activity/Vol] 11 U/L <47 [facility] Serum or plasma albumin you urement (mass/volume)Ordered By: Adam Ferraro on 04-24-2025 Albumin [Mass/Vol] 3.5 g/dL 3.4-4.8 [facility] Serum or plasma albumin/glob ulin mass ratioOrdered By: Adam Ferraro on 04-24-2025 Albumin/Globulin [Mass ratio] 1.5 {ratio} 0.9-2.4 [facility] Serum or plasma alkaline hal sphatase measurementOrdered By: Adam Ferraro on 04-24-2025 ALP [Catalytic activity/Vol] 76 U/L 40-129 [facility] Serum or plasma calcium you urement (mass/volume)Ordered By: Adam Ferraro on 04-24-2025 Calcium [Mass/Vol] 9.3 mg/dL 7.6-11.0 [facility] Serum or plasma urea nitroge n measurement (mass/volume)Ordered By: Adam Ferraro on 04-24-2025 Urea nitrogen [Mass/Vol] 25 mg/dL High 4-19 [facility] Sodium levelOrdered By: Spike Ferraro on 04-24-2025 Sodium [Moles/Vol] 140 mmol/L 133-145 [facility] Total proteinOrdered By: Benoit Ferraro on 04-24-2025 Protein [Mass/Vol] 5.9 g/dL 5.9-8.4 [facility] White blood cell (WBC) count Ordered By: Adam Ferraro on 04-24-2025 WBC (Bld) [#/Vol] 10.3 10*3/uL 4.4-11.0 [facility] Lithiumon 04-01-2025 LI 0.64 mmol/L Normal 0.60-1.20 [facility] Comment on above: Order Comment: 111.2 [id number] Performed By: #### L 501.9060 #### [facility] [address] [place], [place] [address] [place], [address] Serum or plasma uric acid me asurement (mass/volume)Ordered By: Alfredo Phipps on 03-27-2025 Urate [Mass/Vol] 6.5 mg/dL 3.5-7.2 [facility] Comment on above: The drugs N-Acetylcy steine and Metamizole may falsely depress this assay. Uric Acidon 03-27-2025 URIC 6.5 mg/dL Normal 3.5-7.2 [facility] Comment on above: Order Comment: 111.2 Result Comment: The drugs N-Acetylcysteine and Metamizole may falsely depress this assay. Performed By: #### L 501.2300, L500.4050, L501.9060, L100.0100 #### [facility] [address] [place], [address] Microalb:Creat Ratio,Random URon 03-05-2025 Creatinine [Mass/Vol] 72.80 mg/dL Normal 39.00- 259. 00 [facility] Comment on above: Performed By: #### L 501.2300, L500.4050, L501.9060, L100.0100 #### [facility] [address] [place], [address] MALB:CREAT UNABLE TO CALCULATE Normal [facility] Comment on above: Performed By: #### L 501.2300, L500.4050, L501.9060, L100.0100 #### [facility] [address] [place], [address] MICROALBUMIN,UR < 12.0 Normal NO RANGE EST. [facility] Comment on above: Performed By: #### L 501.2300, L500.4050, L501.9060, L100.0100 #### [facility] [address] [place], [address] Microalbumin/creat ratio urO rdered By: Adam Ferraro on 03-04-2025 Urine microalbumin/creatinine ratio measurement UNABLE TO CALCULATE mg/g CRE [facility] Random urine creatinine you urement (mass/volume)Ordered By: Adam Ferraro on 03-04-2025 Creatinine Unsp time (U) [Mass/Vol] 72.80 mg/dL 39.00-259. 00 [facility] Urine albumin measurement wi th detection limit of 20 mg/L or less (mass/volume)Ordered By: Adam Ferraro on 03-04-2025 Albumin DL <= 20 mg/L (U) [Mass/Vol] < 12.0 mg/L NO RANGE EST. [facility] Absolute lymphocyte countOrd ered By: Alfredo Phipps on 02-27-2025 Lymphocytes Auto (Unsp spec) [#/Vol] 1.42 10*3/uL 0.83-4.51 [facility] Absolute neutrophil countOrd ered By: Alfredo Phipps on 02-27-2025 Neutrophils (Bld) [#/Vol] 17.7 10*3/uL High 2.0-7.7 [facility] Anion gap in Serum or Plasma Ordered By: Alfredo Phipps on 02-27-2025 Anion gap [Moles/Vol] 12 mmol/L 5- [facility] Automated lymphocyte count a s percentage of total leukocytesOrdered By: Alfredo Phipps on 02-27-2025 Lymphocytes/100 WBC Auto (Unsp spec) 6.9 % Low 19- [facility] BUN/creatinine ratioOrdered By: Alfredo Phipps on 02-27-2025 Urea nitrogen/Creatinine [Mass ratio] 12.7 mg/mg 10- [facility] Basophil percentageOrdered B y: Alfredo Phipps on 02-27-2025 Basophils/100 WBC (Bld) 0.2 % 0-1 [facility] Bilirubin directOrdered By: Alfredo Phipps on 02-27-2025 Bilirubin.direct [Mass/Vol] 0.10 mg/dL 0.00-0.30 [facility] Bilirubin, Directon 02-28-20 25 Bilirubin.direct [Mass/Vol] 0.10 mg/dL Normal 0.00-0.30 [facility] Comment on above: Order Comment: 111.2 Performed By: #### L 501.2300, L500.4050, L501.9060, L100.0100 #### [facility] [address] [place], [place], [address] Bilirubin, totalOrdered By: Alfredo Phipps on 02-27-2025 Bilirubin [Mass/Vol] 0.19 mg/dL 0.00-1.30 [facility] CBC W/Diff, Automatedon 02-12 Absolute Lymph 1.42 X10 3/uL Normal 0.83-4.51 [facility] Comment on above: Order Comment: 111.2 Performed By: #### L 501.2300, L500.4050, L501.9060, L100.0100 #### [facility] [address] [place], [address] Absolute Neut 17.7 X10 3/uL High 2.0-7.7 [facility] Comment on above: Order Comment: 111.2 Performed By: #### L 501.2300, L500.4050, L501.9060, L100.0100 #### [facility] [address] [place], [address] Basophils/100 WBC (Bld) 0.2 % Normal 0-1 [facility] Comment on above: Order Comment: 111.2 Performed By: #### L 501.2300, L500.4050, L501.9060, L100.0100 #### [facility] [address] [place], [address] Eosinophils/100 WBC (Bld) 0.0 % Normal 0-5 [facility] Comment on above: Order Comment: 111.2 Performed By: #### L 501.2300, L500.4050, L501.9060, L100.0100 #### [facility] [address] [place], [address] Erythrocyte distribution width (RBC) [Ratio] 13.3 % Normal 11.6-14.6 [facility] Comment on above: Order Comment: 111.2 Performed By: #### L 501.2300, L500.4050, L501.9060, L100.0100 #### [facility] [address] [place], [address] Hematocrit (Bld) [Volume fraction] 39.0 % Low 40-54 [facility] Comment on above: Order Comment: 111.2 Performed By: #### L 501.2300, L500.4050, L501.9060, L100.0100 #### [facility] [address] [place], [address] Hemoglobin (Bld) [Mass/Vol] 13.1 g/dL Normal 13.0-16.5 [facility] Comment on above: Order Comment: 111.2 Performed By: #### L 501.2300, L500.4050, L501.9060, L100.0100 #### [facility] [address] [place], [address] IG% 0.900 Normal 0.0-0.9 [facility] Comment on above: Order Comment: 111.2 Result Comment: IG% - Immature Granulocytes (promyelocytes, myelocytes and metamyelocytes) > 1% indicates that a LEFT SHIFT is Present. Performed By: #### L 501.2300, L500.4050, L501.9060, L100.0100 #### [facility] [address] [place], [address] Lymphocytes/100 WBC (Bld) 6.9 % Low 19-41 [facility] Comment on above: Order Comment: 111.2 Performed By: #### L 501.2300, L500.4050, L501.9060, L100.0100 #### [facility] [address] [place], [address] MCH (RBC) [Entitic mass] 30.1 pg Normal 27.0-32.0 [facility] Comment on above: Order Comment: 111.2 Performed By: #### L 501.2300, L500.4050, L501.9060, L100.0100 #### [facility] [address] [place], [address] MCHC (RBC) [Mass/Vol] 33.6 g/dL Normal 32-36 [facility] Comment on above: Order Comment: 111.2 Performed By: #### L 501.2300, L500.4050, L501.9060, L100.0100 #### [facility] [address] [place], [address] MCV (RBC) [Entitic vol] 89.7 fL Normal 80-94 [facility] Comment on above: Order Comment: 111.2 Performed By: #### L 501.2300, L500.4050, L501.9060, L100.0100 #### [facility] [address] [place], [address] Monocytes/100 WBC (Bld) 6.4 % Normal 0-10 [facility] Comment on above: Order Comment: 111.2 Performed By: #### L 501.2300, L500.4050, L501.9060, L100.0100 #### [facility] [address] [place], [address] Neutrophils/100 WBC (Bld) 85.6 % High 47-70 [facility] Comment on above: Order Comment: 111.2 Performed By: #### L 501.2300, L500.4050, L501.9060, L100.0100 #### [facility] [address] [place], [address] Nucleated RBC (Bld) [#/Vol] 0 10*3/uL Normal 0-5 [facility] Comment on above: Order Comment: 111.2 Performed By: #### L 501.2300, L500.4050, L501.9060, L100.0100 #### [facility] [address] [place], [address] Platelet mean volume (Bld) [Entitic vol] 9.3 fL Normal 6.2-12.0 [facility] Comment on above: Order Comment: 111.2 Performed By: #### L 501.2300, L500.4050, L501.9060, L100.0100 #### [facility] [address] [place], [address] Platelets (Bld) [#/Vol] 274 10*3/uL Normal 150-450 [facility] Comment on above: Order Comment: 111.2 Performed By: #### L 501.2300, L500.4050, L501.9060, L100.0100 #### [facility] [address] [place], [address] RBC (Bld) [#/Vol] 4.35 10*6/uL Low 4.6-6.2 [facility] Comment on above: Order Comment: 111.2 Performed By: #### L 501.2300, L500.4050, L501.9060, L100.0100 #### [facility] [address] [place], [address] RDW SD 43.8 fl Normal 35.1-43.9 [facility] Comment on above: Order Comment: 111.2 Performed By: #### L 501.2300, L500.4050, L501.9060, L100.0100 #### [facility] [address] [place], [address] WBC (Bld) [#/Vol] 20.6 10*3/uL High 4.4-11.0 [facility] Comment on above: Order Comment: 111.2 Performed By: #### L 501.2300, L500.4050, L501.9060, L100.0100 #### [facility] [address] [place], [address] Carbon dioxide, total [Moles /volume] in Central venous bloodOrdered By: Alfredo Phipps on 02-27-2025 CO2 [Moles/Vol] 20.5 mmol/L Low 21.0-32.0 [facility] Chloride assayOrdered By: Chan Fiore on 02-27-2025 Chloride [Moles/Vol] 105 mmol/L 98-108 [facility] Comprehensive Metabolic Prof ilon 02-27-2025 Albumin [Mass/Vol] 3.9 g/dL Normal 3.4-4.8 [facility] Comment on above: Order Comment: 111.2 Performed By: #### L 501.2300, L500.4050, L501.9060, L100.0100 #### [facility] [address] [place], [address] Albumin/Globulin [Mass ratio] 1.6 {ratio} Normal 0.9-2.4 [facility] Comment on above: Order Comment: 111.2 Performed By: #### L 501.2300, L500.4050, L501.9060, L100.0100 #### [facility] [address] [place], [address] ALK PHOS 66 U/L Normal 40-129 [facility] Comment on above: Order Comment: 111.2 Performed By: #### L 501.2300, L500.4050, L501.9060, L100.0100 #### [facility] [address] [place], [address] ALT [Catalytic activity/Vol] 13 U/L Normal <=46 [facility] Comment on above: Order Comment: 111.2 Performed By: #### L 501.2300, L500.4050, L501.9060, L100.0100 #### [facility] [address] [place], [address] AST [Catalytic activity/Vol] 11 U/L Normal <=37 [facility] Comment on above: Order Comment: 111.2 Performed By: #### L 501.2300, L500.4050, L501.9060, L100.0100 #### [facility] [address] [place], [address] Bilirubin [Mass/Vol] 0.19 mg/dL Normal 0.00-1.30 [facility] Comment on above: Order Comment: 111.2 Performed By: #### L 501.2300, L500.4050, L501.9060, L100.0100 #### [facility] [address] [place], [address] BUN/CRE 12.7 RATIO Normal 10-20 [facility] Comment on above: Order Comment: 111.2 Performed By: #### L 501.2300, L500.4050, L501.9060, L100.0100 #### [facility] [address] [place], [address] Calcium [Mass/Vol] 9.8 mg/dL Normal 7.6-11.0 [facility] Comment on above: Order Comment: 111.2 Performed By: #### L 501.2300, L500.4050, L501.9060, L100.0100 #### [facility] [address] [place], [address] Chloride [Moles/Vol] 105 mmol/L Normal 98-108 [facility] Comment on above: Order Comment: 111.2 Performed By: #### L 501.2300, L500.4050, L501.9060, L100.0100 #### [facility] [address] [place], [address] CO2 [Moles/Vol] 20.5 mmol/L Low 21.0-32.0 [facility] Comment on above: Order Comment: 111.2 Performed By: #### L 501.2300, L500.4050, L501.9060, L100.0100 #### [facility] [address] [place], [address] Creatinine [Mass/Vol] 2.32 mg/dL High 0.70-1.20 [facility] Comment on above: Order Comment: 111.2 Performed By: #### L 501.2300, L500.4050, L501.9060, L100.0100 #### [facility] [address] [place], [address] GAP 12 Normal 5-15 [facility] Comment on above: Order Comment: 111.2 Performed By: #### L 501.2300, L500.4050, L501.9060, L100.0100 #### [facility] [address] [place], [address] GFR/1.73 sq M.predicted among non-blacks MDRD (S/P/Bld) [Vol rate/Area] 31 mL/min/{1.73_m2} Low >60 [facility] Comment on above: Order Comment: 111.2 Result Comment: mL/m in/1.73m2 CKD-EPI Creatinine Equation (2020) Performed By: #### L 501.2300, L500.4050, L501.9060, L100.0100 #### [facility] [address] [place], [address] Globulin (S) [Mass/Vol] 2.4 g/dL Normal 2.2-4.2 [facility] Comment on above: Order Comment: 111.2 Performed By: #### L 501.2300, L500.4050, L501.9060, L100.0100 #### [facility] [address] [place], [address] Glucose [Mass/Vol] 134 mg/dL High 70-99 [facility] Comment on above: Order Comment: 111.2 Performed By: #### L 501.2300, L500.4050, L501.9060, L100.0100 #### [facility] [address] [place], [address] Potassium [Moles/Vol] 4.4 mmol/L Normal 3.3-5.1 [facility] Comment on above: Order Comment: 111.2 Performed By: #### L 501.2300, L500.4050, L501.9060, L100.0100 #### [facility] [address] [place], [address] Sodium [Moles/Vol] 138 mmol/L Normal 133-145 [facility] Comment on above: Order Comment: 111.2 Performed By: #### L 501.2300, L500.4050, L501.9060, L100.0100 #### [facility] [address] [place], [address] T PROT 6.2 g/dL Normal 5.9-8.4 [facility] Comment on above: Order Comment: 111.2 Performed By: #### L 501.2300, L500.4050, L501.9060, L100.0100 #### [facility] [address] [place], [address] Urea nitrogen [Mass/Vol] 29 mg/dL High 4-19 [facility] Comment on above: Order Comment: 111.2 Performed By: #### L 501.2300, L500.4050, L501.9060, L100.0100 #### [facility] [address] [place], [address] Eosinophil percentageOrdered By: Alfredo Phipps on 02-27-2025 Eosinophils/100 WBC (Bld) 0.0 % 0-5 [facility] Erythrocyte distribution wid th (RBC) [Ratio]Ordered By: Alfredo Phipps on 02-27-2025 Erythrocyte distribution width (RBC) [Entitic vol] 43.8 fL 35.1-43.9 [facility] Erythrocyte distribution wid th ratioOrdered By: Alfredo Phipps on 02-27-2025 Erythrocyte distribution width (RBC) [Ratio] 13.3 % 11.6-14.6 [facility] Erythrocyte distribution wid th standard deviationOrdered By: Alfredo Phipps on 02-27-2025 Erythrocyte distribution width (RBC) [Ratio] 43.8 fl 35.1-43.9 [facility] GFR/1.73 sq M.predicted miles g non-blacks MDRD (S/P/Bld) [Vol rate/Area]Ordered By: Alfredo Phipps on 02-27-2025 Estimated GFR (MDRD) Non-Af Amer 31 Low >60 [facility] Comment on above: mL/min/1.73m2 CKD-EP I Creatinine Equation (2020) Glomerular filtration rate ( GFR) estimation/1.73 sq m using serum, plasma, or whole bOrdered By: Alfredo Phipps on 02-27-2025 GFR/1.73 sq M.predicted among non-blacks MDRD (S/P/Bld) [Vol rate/Area] 31 mL/min/{1.73_m2} Low >60 [facility] Comment on above: mL/min/1.73m2 CKD-EP I Creatinine Equation (2020) Hematocrit Auto (Bld) [Volum e fraction]Ordered By: Alfredo Phipps on 02-27-2025 Hematocrit (Bld) [Volume fraction] 39.0 % Low 40-54 [facility] Hemoglobin measurementOrdere d By: Alfredo Phipps on 02-27-2025 Hemoglobin (Bld) [Mass/Vol] 13.1 g/dL 13.0-16.5 [facility] Immature granulocytes/100 WB C Auto (Bld)Ordered By: Alfredo Phipps on 02-27-2025 Immature granulocytes/100 WBC (Bld) 0.900 % 0.0-0.9 [facility] Comment on above: IG% - Immature Granu locytes (promyelocytes, myelocytes and metamyelocytes) > 1% indicates that a LEFT SHIFT is Present. Laboratory - Chemistry and C hemistry - challengeOrdered By: Alfredo Phipps on 02-27-2025 AST [Catalytic activity/Vol] 11 U/L <38 [facility] Lithiumon 02-27-2025 LI 0.60 mmol/L Normal 0.60-1.20 [facility] Comment on above: Order Comment: 111.2 Performed By: #### L 501.2300, L500.4050, L501.9060, L100.0100 #### [facility] [address] [place], [address] [place] levelOrdered By: Pet er Katsaros on 02-27-2025 [place] Level 0.60 mmol/L 0.60-1.20 [facility] Lymphocytes Auto (Unsp spec) [#/Vol]Ordered By: Alfredo Phipps on 02-27-2025 Lymphocytes (Bld) [#/Vol] 1.42 10*3/uL 0.83-4.51 [facility] Lymphocytes/100 WBC Auto (Un sp spec)Ordered By: Alfredo Phipps on 02-27-2025 Lymphocytes/100 WBC (Bld) 6.9 % Low 19-41 [facility] MCV (mean corpuscular volume ) determinationOrdered By: Alfredo Phipps on 02-27-2025 MCV (RBC) [Entitic vol] 89.7 fL 80-94 [facility] Mean corpuscular hemoglobin (MCH) determinationOrdered By: Alfredo Phipps on 02-27-2025 MCH (RBC) [Entitic mass] 30.1 pg 27.0-32.0 [facility] Mean corpuscular hemoglobin concentration (MCHC) determinationOrdered By: Alfredo Phipps on 02-27-2025 MCHC (RBC) [Mass/Vol] 33.6 g/dL 32-36 [facility] Mean platelet volume determi nationOrdered By: Alfredo Phipps on 02-27-2025 Platelet mean volume (Bld) [Entitic vol] 9.3 fL 6.2-12.0 [facility] Monocyte percentageOrdered B y: Alfredo Phipps on 02-27-2025 Monocytes/100 WBC (Bld) 6.4 % 0-10 [facility] Neutrophil percentageOrdered By: Alfredo Phipps on 02-27-2025 Neutrophils/100 WBC (Bld) 85.6 % High 47-70 [facility] Nucleated red blood cell per centageOrdered By: Alfredo Phipps on 02-27-2025 Nucleated RBC/100 WBC (Bld) [Ratio] 0 % 0-5 [facility] Platelet countOrdered By: Chan Fiore on 02-27-2025 Platelets (Bld) [#/Vol] 274 10*3/uL 150-450 [facility] Potassium (Unsp spec) [Mass/ Vol]Ordered By: Alfredo Phipps on 02-27-2025 Potassium [Moles/Vol] 4.4 mmol/L 3.3-5.1 [facility] Potassium measurement (mass/ volume)Ordered By: Alfredo Phipps on 02-27-2025 Potassium (Unsp spec) [Mass/Vol] 4.4 mmol/L 3.3-5.1 [facility] RBC Auto (Bld) [#/Vol]Ordere d By: Alfredo Phipps on 02-27-2025 RBC (Bld) [#/Vol] 4.35 10*6/uL Low 4.6-6.2 [facility] Serum creatinine measurement (mass/volume)Ordered By: Alfredo Phipps on 02-27-2025 Creatinine [Mass/Vol] 2.32 mg/dL High 0.70-1.20 [facility] Serum globulin measurementOr dered By: Alfredo Phipps on 02-27-2025 Globulin (S) [Mass/Vol] 2.4 g/dL 2.2-4.2 [facility] Serum glucose measurement (m ass/volume)Ordered By: Alfredo Phipps on 02-27-2025 Glucose [Mass/Vol] 134 mg/dL High 70-99 [facility] Serum or plasma alanine sesay otransferase (ALT) measurementOrdered By: Alfredo Phipps on 02-27-2025 ALT [Catalytic activity/Vol] 13 U/L <47 [facility] Serum or plasma albumin you urement (mass/volume)Ordered By: Alfredo Phipps on 02-27-2025 Albumin [Mass/Vol] 3.9 g/dL 3.4-4.8 [facility] Serum or plasma albumin/glob ulin mass ratioOrdered By: Alfredo Phipps on 02-27-2025 Albumin/Globulin [Mass ratio] 1.6 {ratio} 0.9-2.4 [facility] Serum or plasma alkaline hal sphatase measurementOrdered By: Alfredo Phipps on 02-27-2025 ALP [Catalytic activity/Vol] 66 U/L 40-129 [facility] Serum or plasma calcium you urement (mass/volume)Ordered By: Alfredo Phipps on 02-27-2025 Calcium [Mass/Vol] 9.8 mg/dL 7.6-11.0 [facility] Serum or plasma urea nitroge n measurement (mass/volume)Ordered By: Alfredo Phipps on 02-27-2025 Urea nitrogen [Mass/Vol] 29 mg/dL High 4-19 [facility] Sodium levelOrdered By: Raffi Phipps on 02-27-2025 Sodium [Moles/Vol] 138 mmol/L 133-145 [facility] Total proteinOrdered By: Jennifer Phipps on 02-27-2025 Protein [Mass/Vol] 6.2 g/dL 5.9-8.4 [facility] White blood cell (WBC) count Ordered By: Alfredo Phipps on 02-27-2025 WBC (Bld) [#/Vol] 20.6 10*3/uL High 4.4-11.0 [facility] Serum or plasma uric acid me asurement (mass/volume)Ordered By: Adam Ferraro on 02-25-2025 Urate [Mass/Vol] 6.3 mg/dL 3.5-7.2 [facility] Comment on above: The drugs N-Acetylcy steine and Metamizole may falsely depress this assay. Uric Acidon 02-25-2025 URIC 6.3 mg/dL Normal 3.5-7.2 [facility] Comment on above: Order Comment: 111-2 Result Comment: The drugs N-Acetylcysteine and Metamizole may falsely depress this assay. Performed By: #### L 501.1400 #### [facility] [address] [place], [place] [address] [place], [place], [address] Calculated very low density lipoprotein (VLDL) cholesterol measurementOrdered By: Alfredo Phipps on 02-11-2025 Calculated very low density lipoprotein (VLDL) cholesterol measurement 43 mg/dL High 5-40 [facility] VLDL Cholesterol 43 mg/dL High -40 [facility] LDL calc ser/plasOrdered By: Alfredo Phipps on 02-11-2025 Cholesterol in LDL [Mass/Vol] 67 mg/dL [facility] Comment on above: Gledxrctic=699-060 m g/dL & Higher Btma=298 mg/dL or greater LDL Cholesterol, Calculated 67 mg/dL [facility] Comment on above: Nwvxeybqtr=685-125 m g/dL & Higher Msfo=448 mg/dL or greater Lipid Profileon 02-11-2025 CHOL:HDL 4.53 Normal [facility] Comment on above: Order Comment: 111.2 Performed By: #### L 501.2300, L500.4050, L501.9060, L100.0100 #### [facility] [address] [place], [address] Cholesterol [Mass/Vol] 141 mg/dL Normal <=200 [facility] Comment on above: Order Comment: 111.2 Result Comment: Chol esterol level, Desirable <200 mg/dL Borderline high cholesterol 200-239 mg/dL High cholesterol >=240 mg/dL Recommendations of the NCEP Adult Treatment Panel for the following risk-cutoff thresholds for the [place] population. Performed By: #### L 501.2300, L500.4050, L501.9060, L100.0100 #### [facility] [address] [place], [address] Cholesterol in HDL [Mass/Vol] 31 mg/dL Low [facility] Comment on above: Order Comment: 111.2 Result Comment: Fabienne onal Cholesterol Education Program (NCEP) guidelines: <40 mg/dL: Low HDL-cholesterol (major risk factor for CHD) >= 60 mg/dL: High HDL-cholesterol (negative risk factor for CHD) HDL-cholesterol is affected by a number of factors, e.g. smoking, exercise, hormones, sex and age. Performed By: #### L 501.2300, L500.4050, L501.9060, L100.0100 #### [facility] [address] [place], [address] Cholesterol in LDL [Mass/Vol] 67 mg/dL Normal [facility] Comment on above: Order Comment: 111.2 Result Comment: Bord rtijxd=078-801 mg/dL Higher Mmsd=369 mg/dL or greater Performed By: #### L 501.2300, L500.4050, L501.9060, L100.0100 #### [facility] [address] [place], [address] Cholesterol in VLDL [Mass/Vol] 43 mg/dL High 5-40 [facility] Comment on above: Order Comment: 111.2 Performed By: #### L 501.2300, L500.4050, L501.9060, L100.0100 #### [facility] [address] [place], [address] Triglyceride [Mass/Vol] 215 mg/dL High [facility] Comment on above: Order Comment: 111.2 Result Comment: The drugs N-Acetylcysteine and Metamizole may falsely depress this assay. Normal range: <150 mg/dL Borderline High: 150-199 mg/dL High: 200-499 mg/dL Very High: >500 mg/dL Performed By: #### L 501.2300, L500.4050, L501.9060, L100.0100 #### [facility] [address] [place], [address] Screening total cholesterol/ high density lipoprotein (HDL) cholesterol ratioOrdered By: Alfredo Phipps on 02-11-2025 Cholesterol.total/Choles terol in HDL [Mass ratio] 4.53 {ratio} [facility] Serum or plasma cholesterol in HDL measurement (mass/volume)Ordered By: Alfredo Phipps on 02-11-2025 Cholesterol in HDL [Mass/Vol] 31 mg/dL Low >40 [facility] Comment on above: National Cholesterol Education Program (NCEP) guidelines:<40 mg/dL: Low HDL-cholesterol (major risk factor for CHD)>= 60 mg/dL: High HDL-cholesterol (negative risk factor for CHD)HDL-cholesterol is affected by a number of factors, e.g. smoking, exercise, hormones, sex and age. Serum or plasma cholesterol measurement (mass/volume)Ordered By: Alfredo Phipps on 02-11-2025 Cholesterol [Mass/Vol] 141 mg/dL <201 [facility] Comment on above: Cholesterol level, D esirable <200 mg/dLBorderline high cholesterol 200-239 mg/dLHigh cholesterol >=240 mg/dLRecommendations of the NCEP Adult Treatment Panel for the following risk-cutoff thresholds for the [place] population. Triglycerides measurementOrd ered By: Alfredo Phipps on 02-11-2025 Triglyceride [Mass/Vol] 215 mg/dL High <199 [facility] Comment on above: The drugs N-Acetylcy steine and Metamizole may falsely depress this assay. Normal range: <150 mg/dLBorderline High: 150-199 mg/dLHigh: 200-499 mg/dLVery High: >500 mg/dL Hemoglobin A1con 02-06-2025 HbA1c (Bld) [Mass fraction] 5.8 % Normal <=5.6 [facility] Comment on above: Order Comment: 111.2 Performed By: #### L 501.2300, L500.4050, L501.9060, L100.0100 #### [facility] [address] [place], [place], [id number] Hemoglobin A1c percentageOrd ered By: Alfredo Phipps on 02-06-2025 HbA1c (Bld) [Mass fraction] 5.8 % >5.7 [facility] Lithiumon 01-30-2025 LI 0.71 mmol/L Normal 0.60-1.20 [facility] Comment on above: Order Comment: 111-2 Performed By: #### L 501.1400 #### [facility] [address] [place], [place], [address] [place] levelOrdered By: Benoit Ferraro on 01-30-2025 [place] Level 0.71 mmol/L 0.60-1.20 [facility] Serum or plasma uric acid me asurement (mass/volume)Ordered By: Adam Ferraro on 01-25-2025 Urate [Mass/Vol] 6.2 mg/dL 3.5-7.2 [facility] Comment on above: The drugs N-Acetylcy steine and Metamizole may falsely depress this assay. Uric Acidon 01-25-2025 URIC 6.2 mg/dL Normal 3.5-7.2 [facility] Comment on above: Order Comment: 111.2 Result Comment: The drugs N-Acetylcysteine and Metamizole may falsely depress this assay. Performed By: #### L 501.2300, L500.4050, L501.9060, L100.0100 #### [facility] [address] [place], [address] Microalb:Creat Ratio,Random URon 01-03-2025 Creatinine [Mass/Vol] 104.00 mg/dL Normal NO RAN GE EST. [facility] Comment on above: Performed By: #### L 501.2300, L500.4050, L501.9060, L100.0100 #### [facility] [address] [place], [address] MALB:CRE TNP Normal <30 mg/g CRE [facility] Comment on above: Performed By: #### L 501.2300, L500.4050, L501.9060, L100.0100 #### [facility] [address] [place], [address] MICROALBUMIN,UR < 5.0 Normal NO RANGE EST. [facility] Comment on above: Performed By: #### L 501.2300, L500.4050, L501.9060, L100.0100 #### [facility] [address] [place], [address] Random urine microalbumin me asurementOrdered By: Adam Ferraro on 01-03-2025 Urine Random Microalbumin < 5.0 mg/L NO RANGE EST. [facility] Urine albumin/creatinine rat io for detection of microalbuminuriaOrdered By: Adam Ferraro on 01-03-2025 Urine Microalbumin/Creatinine Ratio TNP [facility] Comment on above: Test not performed Urine creatinine measurement (mass/volume)Ordered By: Adam Ferraro on 01-03-2025 Creatinine (U) [Mass/Vol] 104.00 mg/dL NO RANGE EST. [facility] Absolute lymphocyte countOrd ered By: Adam Ferraro on 01-02-2025 Lymphocytes Auto (Unsp spec) [#/Vol] 2.41 10*3/uL 0.83-4.51 [facility] Absolute neutrophil countOrd ered By: Adam Muñozmele on 01-02-2025 Neutrophils (Bld) [#/Vol] 5.6 10*3/uL 2.0-7.7 [facility] Albumin to globulin ratioOrd ered By: Adam Muñozmele on 01-02-2025 Albumin/Globulin [Mass ratio] 1.0 {ratio} 0.9-2.4 [facility] Automated lymphocyte count a s percentage of total leukocytesOrdered By: Adam Muñozmele on 01-02-2025 Lymphocytes/100 WBC Auto (Unsp spec) 25.1 % [facility] Basophil percentageOrdered B y: Adam Wandamele on 01-02-2025 Basophils/100 WBC (Bld) 1.1 % High 0-1 [facility] Bilirubin, totalOrdered By: Adam Ferraro on 01-02-2025 Bilirubin [Mass/Vol] 0.30 mg/dL 0.20-1.00 [facility] Comment on above: For patients on eltr ombopag therapy, use of Dimension [place] TBIL is not recommended. Blood urea nitrogen (BUN)/cr eatinine ratioOrdered By: Adam Ferraro on 01-02-2025 Urea nitrogen/Creatinine [Mass ratio] 12.6 mg/mg 10 [facility] CBC W/Diff, Automatedon 12-15 Absolute Lymph 2.41 X10 3/uL Normal 0.83-4.51 [facility] Comment on above: Order Comment: 111.2 Performed By: #### L 501.2300, L500.4050, L501.9060, L100.0100 #### [facility] [address] [place], [address] Absolute Neut 5.6 X10 3/uL Normal 2.0-7.7 [facility] Comment on above: Order Comment: 111.2 Performed By: #### L 501.2300, L500.4050, L501.9060, L100.0100 #### [facility] [address] [place], [address] Basophils/100 WBC (Bld) 1.1 % High 0-1 [facility] Comment on above: Order Comment: 111.2 Performed By: #### L 501.2300, L500.4050, L501.9060, L100.0100 #### [facility] [address] [place], [address] Eosinophils/100 WBC (Bld) 5.3 % High 0-5 [facility] Comment on above: Order Comment: 111.2 Performed By: #### L 501.2300, L500.4050, L501.9060, L100.0100 #### [facility] [address] [place], [address] Erythrocyte distribution width (RBC) [Ratio] 12.9 % Normal 11.6-14.6 [facility] Comment on above: Order Comment: 111.2 Performed By: #### L 501.2300, L500.4050, L501.9060, L100.0100 #### [facility] [address] [place], [address] Hematocrit (Bld) [Volume fraction] 40.5 % Normal 40-54 [facility] Comment on above: Order Comment: 111.2 Performed By: #### L 501.2300, L500.4050, L501.9060, L100.0100 #### [facility] [address] [place], [address] Hemoglobin (Bld) [Mass/Vol] 13.4 g/dL Normal 13.0-16.5 [facility] Comment on above: Order Comment: 111.2 Performed By: #### L 501.2300, L500.4050, L501.9060, L100.0100 #### [facility] [address] [place], [address] IG% 0.500 Normal 0.0-0.9 [facility] Comment on above: Order Comment: 111.2 Result Comment: IG% - Immature Granulocytes (promyelocytes, myelocytes and metamyelocytes) > 1% indicates that a LEFT SHIFT is Present. Performed By: #### L 501.2300, L500.4050, L501.9060, L100.0100 #### [facility] [address] [place], [address] Lymphocytes/100 WBC (Bld) 25.1 % Normal 19-41 [facility] Comment on above: Order Comment: 111.2 Performed By: #### L 501.2300, L500.4050, L501.9060, L100.0100 #### [facility] [address] [place], [address] MCH (RBC) [Entitic mass] 30.0 pg Normal 27.0-32.0 [facility] Comment on above: Order Comment: 111.2 Performed By: #### L 501.2300, L500.4050, L501.9060, L100.0100 #### [facility] [address] [place], [address] MCHC (RBC) [Mass/Vol] 33.1 g/dL Normal 32-36 [facility] Comment on above: Order Comment: 111.2 Performed By: #### L 501.2300, L500.4050, L501.9060, L100.0100 #### [facility] [address] [place], [address] MCV (RBC) [Entitic vol] 90.8 fL Normal 80-94 [facility] Comment on above: Order Comment: 111.2 Performed By: #### L 501.2300, L500.4050, L501.9060, L100.0100 #### [facility] [address] [place], [address] Monocytes/100 WBC (Bld) 9.4 % Normal 0-10 [facility] Comment on above: Order Comment: 111.2 Performed By: #### L 501.2300, L500.4050, L501.9060, L100.0100 #### [facility] [address] [place], [address] Neutrophils/100 WBC (Bld) 58.6 % Normal 47-70 [facility] Comment on above: Order Comment: 111.2 Performed By: #### L 501.2300, L500.4050, L501.9060, L100.0100 #### [facility] [address] [place], [address] Nucleated RBC (Bld) [#/Vol] 0 10*3/uL Normal 0-5 [facility] Comment on above: Order Comment: 111.2 Performed By: #### L 501.2300, L500.4050, L501.9060, L100.0100 #### [facility] [address] [place], [address] Platelet mean volume (Bld) [Entitic vol] 9.5 fL Normal 6.2-12.0 [facility] Comment on above: Order Comment: 111.2 Performed By: #### L 501.2300, L500.4050, L501.9060, L100.0100 #### [facility] [address] [place], [address] Platelets (Bld) [#/Vol] 247 10*3/uL Normal 150-450 [facility] Comment on above: Order Comment: 111.2 Performed By: #### L 501.2300, L500.4050, L501.9060, L100.0100 #### [facility] [address] [place], [address] RBC (Bld) [#/Vol] 4.46 10*6/uL Low 4.6-6.2 [facility] Comment on above: Order Comment: 111.2 Performed By: #### L 501.2300, L500.4050, L501.9060, L100.0100 #### [facility] [address] [place], [address] RDW SD 41.9 fl Normal 35.1-43.9 [facility] Comment on above: Order Comment: 111.2 Performed By: #### L 501.2300, L500.4050, L501.9060, L100.0100 #### [facility] [address] [place], [address] WBC (Bld) [#/Vol] 9.6 10*3/uL Normal 4.4-11.0 [facility] Comment on above: Order Comment: 111.2 Performed By: #### L 501.2300, L500.4050, L501.9060, L100.0100 #### [facility] [address] [place], [address] Carbon dioxide measurementOr dered By: Adam Ferraro on 01-02-2025 CO2 [Moles/Vol] 25.0 mmol/L 21.0-32.0 [facility] Chloride measurementOrdered By: Adam Ferraro on 01-02-2025 Chloride [Moles/Vol] 109 mmol/L High 98-107 [facility] Comprehensive Metabolic Prof ilon 01-02-2025 Albumin [Mass/Vol] 3.1 g/dL Low 3.2-5.0 [facility] Comment on above: Order Comment: 111.2 Performed By: #### L 501.2300, L500.4050, L501.9060, L100.0100 #### [facility] [address] [place], [address] Albumin/Globulin [Mass ratio] 1.0 {ratio} Normal 0.9-2.4 [facility] Comment on above: Order Comment: 111.2 Performed By: #### L 501.2300, L500.4050, L501.9060, L100.0100 #### [facility] [address] [place], [address] ALK P 81 U/L Normal 45-117 [facility] Comment on above: Order Comment: 111.2 Performed By: #### L 501.2300, L500.4050, L501.9060, L100.0100 #### [facility] [address] [place], [address] ALT [Catalytic activity/Vol] 17 U/L Normal 16-61 [facility] Comment on above: Order Comment: 111.2 Performed By: #### L 501.2300, L500.4050, L501.9060, L100.0100 #### [facility] [address] [place], [address] AST [Catalytic activity/Vol] 12 U/L Low 15-37 [facility] Comment on above: Order Comment: 111.2 Performed By: #### L 501.2300, L500.4050, L501.9060, L100.0100 #### [facility] [address] [place], [address] Bilirubin [Mass/Vol] 0.30 mg/dL Normal 0.20-1.00 [facility] Comment on above: Order Comment: 111.2 Result Comment: For patients on eltrombopag therapy, use of Dimension [place] TBIL is not recommended. Performed By: #### L 501.2300, L500.4050, L501.9060, L100.0100 #### [facility] [address] [place], [address] BUN/CRE 12.6 RATIO Normal 10-20 [facility] Comment on above: Order Comment: 111.2 Performed By: #### L 501.2300, L500.4050, L501.9060, L100.0100 #### [facility] [address] [place], [address] CA,Total 9.4 mg/dL Normal 8.5-10.1 [facility] Comment on above: Order Comment: 111.2 Performed By: #### L 501.2300, L500.4050, L501.9060, L100.0100 #### [facility] [address] [place], [address] Chloride [Moles/Vol] 109 mmol/L High 98-107 [facility] Comment on above: Order Comment: 111.2 Performed By: #### L 501.2300, L500.4050, L501.9060, L100.0100 #### [facility] [address] [place], [address] CO2 [Moles/Vol] 25.0 mmol/L Normal 21.0-32.0 [facility] Comment on above: Order Comment: 111.2 Performed By: #### L 501.2300, L500.4050, L501.9060, L100.0100 #### [facility] [address] [place], [address] Creatinine [Mass/Vol] 2.14 mg/dL High 0.70-1.30 [facility] Comment on above: Order Comment: 111.2 Result Comment: The validity of the calculated GFR GFRAA in patients over 70 years has not been determined. Clinical correlation is essential. Performed By: #### L 501.2300, L500.4050, L501.9060, L100.0100 #### [facility] [address] [place], [address] EST GFR - AA 41 mL/min Low >60 [facility] Comment on above: Order Comment: 111.2 Result Comment: Afri can Haitian GFR Calc Performed By: #### L 501.2300, L500.4050, L501.9060, L100.0100 #### [facility] [address] [place], [address] GAP 7 Normal 5-15 [facility] Comment on above: Order Comment: 111.2 Performed By: #### L 501.2300, L500.4050, L501.9060, L100.0100 #### [facility] [address] [place], [address] GFR/1.73 sq M.predicted among non-blacks MDRD (S/P/Bld) [Vol rate/Area] 34 mL/min/{1.73_m2} Low >60 [facility] Comment on above: Order Comment: 111.2 Result Comment: Non- GFR Calc Performed By: #### L 501.2300, L500.4050, L501.9060, L100.0100 #### [facility] [address] [place], [address] Globulin (S) [Mass/Vol] 3.1 g/dL Normal 2.2-4.2 [facility] Comment on above: Order Comment: 111.2 Performed By: #### L 501.2300, L500.4050, L501.9060, L100.0100 #### [facility] [address] [place], [address] Glucose [Mass/Vol] 115 mg/dL High 74-106 [facility] Comment on above: Order Comment: 111.2 Result Comment: Fast ing Glucose result from 100 to 125 mg/dL suggests IMPAIRED HOMEOSTASIS per A.D.A. criteria. Performed By: #### L 501.2300, L500.4050, L501.9060, L100.0100 #### [facility] [address] [place], [address] Potassium [Moles/Vol] 4.1 mmol/L Normal 3.5-5.1 [facility] Comment on above: Order Comment: 111.2 Performed By: #### L 501.2300, L500.4050, L501.9060, L100.0100 #### [facility] [address] [place], [address] Sodium [Moles/Vol] 141 mmol/L Normal 136-145 [facility] Comment on above: Order Comment: 111.2 Performed By: #### L 501.2300, L500.4050, L501.9060, L100.0100 #### [facility] [address] [place], [address] T PROT 6.2 g/dL Low 6.4-8.2 [facility] Comment on above: Order Comment: 111.2 Performed By: #### L 501.2300, L500.4050, L501.9060, L100.0100 #### [facility] [address] [place], [address] Urea nitrogen [Mass/Vol] 27 mg/dL High 7-18 [facility] Comment on above: Order Comment: 111.2 Performed By: #### L 501.2300, L500.4050, L501.9060, L100.0100 #### [facility] [address] [place], [address] Eosinophil percentageOrdered By: Adam Ferraro on 01-02-2025 Eosinophils/100 WBC (Bld) 5.3 % High 0-5 [facility] Erythrocyte distribution wid th ratioOrdered By: Adam Ferraro on 01-02-2025 Erythrocyte distribution width (RBC) [Ratio] 12.9 % 11.6-14.6 [facility] Erythrocyte distribution wid th standard deviationOrdered By: Adam Ferraro on 01-02-2025 Erythrocyte distribution width (RBC) [Entitic vol] 41.9 fL 35.1-43.9 [facility] Erythrocyte distribution width (RBC) [Ratio] 41.9 fl 35.1-43.9 [facility] Estimated glomerular filtrat ion rate (GFR) AmericanOrdered By: Adam Ferraro on 01-02-2025 Estimated GFR (MDRD) Amer 41 mL/min Low >60 [facility] Comment on above: GFR Calc Glomerular filtration rate ( GFR) estimationOrdered By: Adam Ferraro on 01-02-2025 Estimated GFR (MDRD) Non-Af Amer 34 mL/min Low >60 [facility] Comment on above: Non- GFR Calc GFR/1.73 sq M.predicted among non-blacks MDRD (S/P/Bld) [Vol rate/Area] 34 mL/min/{1.73_m2} Low >60 [facility] Comment on above: Non- GFR Calc Glucose measurementOrdered B y: Adam Ferraro on 01-02-2025 Glucose [Mass/Vol] 115 mg/dL High 74-106 [facility] Comment on above: Fasting Glucose resu lt from 100 to 125 mg/dL suggests IMPAIRED HOMEOSTASIS per A.D.A. criteria. Hematocrit Auto (Bld) [Volum e fraction]Ordered By: Adam Ferraro on 01-02-2025 Hematocrit (Bld) [Volume fraction] 40.5 % 40-54 [facility] Hemoglobin measurementOrdere d By: Adam Ferraro on 01-02-2025 Hemoglobin (Bld) [Mass/Vol] 13.4 g/dL 13.0-16.5 [facility] Immature granulocytes/100 WB C Auto (Bld)Ordered By: Adam Ferraro on 01-02-2025 Immature granulocytes/100 WBC (Bld) 0.500 % 0.0-0.9 [facility] Comment on above: IG% - Immature Granu locytes (promyelocytes, myelocytes and metamyelocytes) > 1% indicates that a LEFT SHIFT is Present. Laboratory - Chemistry and C hemistry - challengeOrdered By: Adam Ferraro on 01-02-2025 AST [Catalytic activity/Vol] 12 U/L Low 15-37 [facility] Lithiumon 01-02-2025 LI 0.60 mmol/L Normal 0.60-1.20 [facility] Comment on above: Order Comment: 111.2 Performed By: #### L 501.2300, L500.4050, L501.9060, L100.0100 #### [facility] [address] [place], [address] [place] levelOrdered By: Benoit Ferraro on 01-02-2025 [place] Level 0.60 mmol/L 0.60-1.20 [facility] Lymphocytes Auto (Unsp spec) [#/Vol]Ordered By: Adam Ferraro on 01-02-2025 Lymphocytes (Bld) [#/Vol] 2.41 10*3/uL 0.83-4.51 [facility] Lymphocytes/100 WBC Auto (Un sp spec)Ordered By: Adam Ferraro on 01-02-2025 Lymphocytes/100 WBC (Bld) 25.1 % 19-41 [facility] MCV (mean corpuscular volume ) determinationOrdered By: Adam Ferraro on 01-02-2025 MCV (RBC) [Entitic vol] 90.8 fL 80-94 [facility] Mean corpuscular hemoglobin (MCH) determinationOrdered By: Adam Ferraro on 01-02-2025 MCH (RBC) [Entitic mass] 30.0 pg 27.0-32.0 [facility] Mean corpuscular hemoglobin concentration (MCHC) determinationOrdered By: Adam Ferraro on 01-02-2025 MCHC (RBC) [Mass/Vol] 33.1 g/dL 32-36 [facility] Mean platelet volume determi nationOrdered By: Adam Ferraro on 01-02-2025 Platelet mean volume (Bld) [Entitic vol] 9.5 fL 6.2-12.0 [facility] Monocyte percentageOrdered B y: Adam Ferraro on 01-02-2025 Monocytes/100 WBC (Bld) 9.4 % 0-10 [facility] Neutrophil percentageOrdered By: Adam Ferraro on 01-02-2025 Neutrophils/100 WBC (Bld) 58.6 % 47-70 [facility] Nucleated red blood cell per centageOrdered By: Adam Ferraro on 01-02-2025 Nucleated RBC/100 WBC (Bld) [Ratio] 0 % 0-5 [facility] Phosphoruson 01-02-2025 Phosphate [Mass/Vol] 4.7 mg/dL Normal 2.5-4.9 [facility] Comment on above: Order Comment: 111.2 Performed By: #### L 501.4430, L500.4050, L501.9060, L100.0100 #### [facility] [address] [place], [address] Phosphorus measurementOrdere d By: Adam Ferraro on 01-02-2025 Phosphorus Level 4.7 mg/dL 2.5-4.9 [facility] Platelet countOrdered By: Sabino Ferraro on 01-02-2025 Platelets (Bld) [#/Vol] 247 10*3/uL 150-450 [facility] Potassium measurementOrdered By: Adam Ferraro on 01-02-2025 Potassium [Moles/Vol] 4.1 mmol/L 3.5-5.1 [facility] RBC Auto (Bld) [#/Vol]Ordere d By: Adam Ferraro on 01-02-2025 RBC (Bld) [#/Vol] 4.46 10*6/uL Low 4.6-6.2 [facility] Serum anion gap measurementO rdered By: Adam Ferraro on 01-02-2025 Anion gap [Moles/Vol] 7 mmol/L 5-15 [facility] Serum globulin measurementOr dered By: Adam Ferraro on 01-02-2025 Globulin (S) [Mass/Vol] 3.1 g/dL 2.2-4.2 [facility] Serum or plasma alanine sesay otransferase (ALT) measurementOrdered By: Adam Ferraro on 01-02-2025 ALT [Catalytic activity/Vol] 17 U/L 16-61 [facility] Serum or plasma albumin you urement (mass/volume)Ordered By: Adam Ferraro on 01-02-2025 Albumin [Mass/Vol] 3.1 g/dL Low 3.2-5.0 [facility] Serum or plasma alkaline hal sphatase measurementOrdered By: Adam Ferraro on 01-02-2025 ALP [Catalytic activity/Vol] 81 U/L 45-117 [facility] Serum or plasma calcium you urement (mass/volume)Ordered By: Adam Ferraro on 01-02-2025 Calcium [Mass/Vol] 9.4 mg/dL 8.5-10.1 [facility] Serum or plasma creatinine m easurement (mass/volume)Ordered By: Adam Ferraro on 01-02-2025 Creatinine [Mass/Vol] 2.14 mg/dL High 0.70-1.30 [facility] Comment on above: The validity of the calculated GFR & GFRAA in patients over 70 years has not been determined. Clinical correlation is essential. Serum or plasma urea nitroge n measurement (mass/volume)Ordered By: Adam Ferraro on 01-02-2025 Urea nitrogen [Mass/Vol] 27 mg/dL High 7-18 [facility] Sodium levelOrdered By: Spike Ferraro on 01-02-2025 Sodium [Moles/Vol] 141 mmol/L 136-145 [facility] Total proteinOrdered By: Benoit Ferraro on 01-02-2025 Protein [Mass/Vol] 6.2 g/dL Low 6.4-8.2 [facility] White blood cell (WBC) count Ordered By: Adam Ferraro on 01-02-2025 WBC (Bld) [#/Vol] 9.6 10*3/uL 4.4-11.0 [facility] Albumin to globulin ratioOrd ered By: Adam Ferraro on 12-28-2024 Albumin/Globulin [Mass ratio] 0.9 {ratio} 0.9-2.4 [facility] Bilirubin, totalOrdered By: Adam Ferraro on 12-28-2024 Bilirubin [Mass/Vol] 0.30 mg/dL 0.20-1.00 [facility] Comment on above: For patients on eltr ombopag therapy, use of Dimension [place] TBIL is not recommended. Blood urea nitrogen (BUN)/cr eatinine ratioOrdered By: Adam Ferraro on 12-28-2024 Urea nitrogen/Creatinine [Mass ratio] 10.0 mg/mg 10-20 [facility] CBC-Complete Blood Cnt No Di ffon 12-28-2024 Erythrocyte distribution width (RBC) [Ratio] 13.1 % Normal 11.6-14.6 [facility] Comment on above: Order Comment: 111.2 Performed By: #### L 501.2300, L500.4050, L501.9060, L100.0100 #### [facility] [address] [place], [address] Hematocrit (Bld) [Volume fraction] 40.4 % Normal 40-54 [facility] Comment on above: Order Comment: 111.2 Performed By: #### L 501.2300, L500.4050, L501.9060, L100.0100 #### [facility] [address] [place], [address] Hemoglobin (Bld) [Mass/Vol] 13.2 g/dL Normal 13.0-16.5 [facility] Comment on above: Order Comment: 111.2 Performed By: #### L 501.2300, L500.4050, L501.9060, L100.0100 #### [facility] [address] [place], [address] MCH (RBC) [Entitic mass] 29.7 pg Normal 27.0-32.0 [facility] Comment on above: Order Comment: 111.2 Performed By: #### L 501.2300, L500.4050, L501.9060, L100.0100 #### [facility] [address] [place], [address] MCHC (RBC) [Mass/Vol] 32.7 g/dL Normal 32-36 [facility] Comment on above: Order Comment: 111.2 Performed By: #### L 501.2300, L500.4050, L501.9060, L100.0100 #### [facility] [address] [place], [address] MCV (RBC) [Entitic vol] 91.0 fL Normal 80-94 [facility] Comment on above: Order Comment: 111.2 Performed By: #### L 501.2300, L500.4050, L501.9060, L100.0100 #### [facility] [address] [place], [address] Platelet mean volume (Bld) [Entitic vol] 9.3 fL Normal 6.2-12.0 [facility] Comment on above: Order Comment: 111.2 Performed By: #### L 501.2300, L500.4050, L501.9060, L100.0100 #### [facility] [address] [place], [address] Platelets (Bld) [#/Vol] 248 10*3/uL Normal 150-450 [facility] Comment on above: Order Comment: 111.2 Performed By: #### L 501.2300, L500.4050, L501.9060, L100.0100 #### [facility] [address] [place], [address] RBC (Bld) [#/Vol] 4.44 10*6/uL Low 4.6-6.2 [facility] Comment on above: Order Comment: 111.2 Performed By: #### L 501.2300, L500.4050, L501.9060, L100.0100 #### [facility] [address] [place], [address] RDW SD 42.4 fl Normal 35.1-43.9 [facility] Comment on above: Order Comment: 111.2 Performed By: #### L 501.2300, L500.4050, L501.9060, L100.0100 #### [facility] [address] [place], [address] WBC (Bld) [#/Vol] 10.5 10*3/uL Normal 4.4-11.0 [facility] Comment on above: Order Comment: 111.2 Performed By: #### L 501.2300, L500.4050, L501.9060, L100.0100 #### [facility] [address] [place], [address] Carbon dioxide measurementOr dered By: Adam Ferraro on 12-28-2024 CO2 [Moles/Vol] 25.0 mmol/L 21.0-32.0 [facility] Chloride measurementOrdered By: Adam Ferraro on 12-28-2024 Chloride [Moles/Vol] 110 mmol/L High 98-107 [facility] Comprehensive Metabolic Prof ilon 12-28-2024 Albumin [Mass/Vol] 3.0 g/dL Low 3.2-5.0 [facility] Comment on above: Order Comment: 111.2 Performed By: #### L 501.2300, L500.4050, L501.9060, L100.0100 #### [facility] [address] [place], [address] Albumin/Globulin [Mass ratio] 0.9 {ratio} Normal 0.9-2.4 [facility] Comment on above: Order Comment: 111.2 Performed By: #### L 501.2300, L500.4050, L501.9060, L100.0100 #### [facility] [address] [place], [address] ALK P 81 U/L Normal 45-117 [facility] Comment on above: Order Comment: 111.2 Performed By: #### L 501.2300, L500.4050, L501.9060, L100.0100 #### [facility] [address] [place], [address] ALT [Catalytic activity/Vol] 20 U/L Normal 16-61 [facility] Comment on above: Order Comment: 111.2 Performed By: #### L 501.2300, L500.4050, L501.9060, L100.0100 #### [facility] [address] [place], [address] AST [Catalytic activity/Vol] 11 U/L Low 15-37 [facility] Comment on above: Order Comment: 111.2 Performed By: #### L 501.2300, L500.4050, L501.9060, L100.0100 #### [facility] [address] [place], [address] Bilirubin [Mass/Vol] 0.30 mg/dL Normal 0.20-1.00 [facility] Comment on above: Order Comment: 111.2 Result Comment: For patients on eltrombopag therapy, use of Dimension [place] TBIL is not recommended. Performed By: #### L 501.2300, L500.4050, L501.9060, L100.0100 #### [facility] [address] [place], [address] BUN/CRE 10.0 RATIO Normal 10-20 [facility] Comment on above: Order Comment: 111.2 Performed By: #### L 501.2300, L500.4050, L501.9060, L100.0100 #### [facility] [address] [place], [address] CA,Total 9.3 mg/dL Normal 8.5-10.1 [facility] Comment on above: Order Comment: 111.2 Performed By: #### L 501.2300, L500.4050, L501.9060, L100.0100 #### [facility] [address] [place], [address] Chloride [Moles/Vol] 110 mmol/L High 98-107 [facility] Comment on above: Order Comment: 111.2 Performed By: #### L 501.2300, L500.4050, L501.9060, L100.0100 #### [facility] [address] [place], [address] CO2 [Moles/Vol] 25.0 mmol/L Normal 21.0-32.0 [facility] Comment on above: Order Comment: 111.2 Performed By: #### L 501.2300, L500.4050, L501.9060, L100.0100 #### [facility] [address] [place], [address] Creatinine [Mass/Vol] 2.09 mg/dL High 0.70-1.30 [facility] Comment on above: Order Comment: 111.2 Result Comment: The validity of the calculated GFR GFRAA in patients over 70 years has not been determined. Clinical correlation is essential. Performed By: #### L 501.2300, L500.4050, L501.9060, L100.0100 #### [facility] [address] [place], [address] EST GFR - AA 42 mL/min Low >60 [facility] Comment on above: Order Comment: 111.2 Result Comment: Afri can Haitian GFR Calc Performed By: #### L 501.2300, L500.4050, L501.9060, L100.0100 #### [facility] [address] [place], [address] GAP 6 Normal 5-15 [facility] Comment on above: Order Comment: 111.2 Performed By: #### L 501.2300, L500.4050, L501.9060, L100.0100 #### [facility] [address] [place], [address] GFR/1.73 sq M.predicted among non-blacks MDRD (S/P/Bld) [Vol rate/Area] 34 mL/min/{1.73_m2} Low >60 [facility] Comment on above: Order Comment: 111.2 Result Comment: Non- GFR Calc Performed By: #### L 501.2300, L500.4050, L501.9060, L100.0100 #### [facility] [address] [place], [address] Globulin (S) [Mass/Vol] 3.4 g/dL Normal 2.2-4.2 [facility] Comment on above: Order Comment: 111.2 Performed By: #### L 501.2300, L500.4050, L501.9060, L100.0100 #### [facility] [address] [place], [address] Glucose [Mass/Vol] 119 mg/dL High 74-106 [facility] Comment on above: Order Comment: 111.2 Result Comment: Fast ing Glucose result from 100 to 125 mg/dL suggests IMPAIRED HOMEOSTASIS per A.D.A. criteria. Performed By: #### L 501.2300, L500.4050, L501.9060, L100.0100 #### [facility] [address] [place], [address] Potassium [Moles/Vol] 4.3 mmol/L Normal 3.5-5.1 [facility] Comment on above: Order Comment: 111.2 Performed By: #### L 501.2300, L500.4050, L501.9060, L100.0100 #### [facility] [address] [place], [address] Sodium [Moles/Vol] 141 mmol/L Normal 136-145 [facility] Comment on above: Order Comment: 111.2 Performed By: #### L 501.2300, L500.4050, L501.9060, L100.0100 #### [facility] [address] [place], [address] T PROT 6.4 g/dL Normal 6.4-8.2 [facility] Comment on above: Order Comment: 111.2 Performed By: #### L 501.2300, L500.4050, L501.9060, L100.0100 #### [facility] [address] [place], [address] Urea nitrogen [Mass/Vol] 21 mg/dL High 7-18 [facility] Comment on above: Order Comment: 111.2 Performed By: #### L 501.2300, L500.4050, L501.9060, L100.0100 #### [facility] [address] [place], [address] Erythrocyte distribution wid th ratioOrdered By: Adam Ferraro on 12-28-2024 Erythrocyte distribution width (RBC) [Ratio] 13.1 % 11.6-14.6 [facility] Erythrocyte distribution wid th standard deviationOrdered By: Adam Ferraro on 12-28-2024 Erythrocyte distribution width (RBC) [Entitic vol] 42.4 fL 35.1-43.9 [facility] Erythrocyte distribution width (RBC) [Ratio] 42.4 fl 35.1-43.9 [facility] Estimated glomerular filtrat ion rate (GFR) AmericanOrdered By: Adam Ferraro on 12-28-2024 Estimated GFR (MDRD) Amer 42 mL/min Low >60 [facility] Comment on above: GFR Calc Glomerular filtration rate ( GFR) estimationOrdered By: Adam Ferraro on 12-28-2024 Estimated GFR (MDRD) Non-Af Amer 34 mL/min Low >60 [facility] Comment on above: Non- GFR Calc GFR/1.73 sq M.predicted among non-blacks MDRD (S/P/Bld) [Vol rate/Area] 34 mL/min/{1.73_m2} Low >60 [facility] Comment on above: Non- GFR Calc Glucose measurementOrdered B y: Adam Ferraro on 12-28-2024 Glucose [Mass/Vol] 119 mg/dL High 74-106 [facility] Comment on above: Fasting Glucose resu lt from 100 to 125 mg/dL suggests IMPAIRED HOMEOSTASIS per A.D.A. criteria. Hematocrit Auto (Bld) [Volum e fraction]Ordered By: Adam Ferraro on 12-28-2024 Hematocrit (Bld) [Volume fraction] 40.4 % 40-54 [facility] Hemoglobin measurementOrdere d By: Adam Ferraro on 12-28-2024 Hemoglobin (Bld) [Mass/Vol] 13.2 g/dL 13.0-16.5 [facility] - Chemistry and C hemistry - challengeOrdered By: Adam Ferraro on 12-28-2024 AST [Catalytic activity/Vol] 11 U/L Low 15-37 [facility] MCV (mean corpuscular volume ) determinationOrdered By: Adam Ferraro on 12-28-2024 MCV (RBC) [Entitic vol] 91.0 fL 80-94 [facility] Mean corpuscular hemoglobin (MCH) determinationOrdered By: Adam Ferraro on 12-28-2024 MCH (RBC) [Entitic mass] 29.7 pg 27.0-32.0 [facility] Mean corpuscular hemoglobin concentration (MCHC) determinationOrdered By: Adam Ferraro on 12-28-2024 MCHC (RBC) [Mass/Vol] 32.7 g/dL 32-36 [facility] Mean platelet volume determi nationOrdered By: Adam Ferraro on 12-28-2024 Platelet mean volume (Bld) [Entitic vol] 9.3 fL 6.2-12.0 [facility] Platelet countOrdered By: Sabino Ferraro on 12-28-2024 Platelets (Bld) [#/Vol] 248 10*3/uL 150-450 [facility] Potassium measurementOrdered By: Adam Ferraro on 12-28-2024 Potassium [Moles/Vol] 4.3 mmol/L 3.5-5.1 [facility] RBC Auto (Bld) [#/Vol]Ordere d By: Adam Ferraro on 12-28-2024 RBC (Bld) [#/Vol] 4.44 10*6/uL Low 4.6-6.2 [facility] Serum anion gap measurementO rdered By: Adam Ferraro on 12-28-2024 Anion gap [Moles/Vol] 6 mmol/L 5-15 [facility] Serum globulin measurementOr dered By: Adam Ferraro 12-28-2024 Globulin (S) [Mass/Vol] 3.4 g/dL 2.2-4.2 [facility] Serum or plasma alanine sesay otransferase (ALT) measurementOrdered By: Adam Ferraro on 12-28-2024 ALT [Catalytic activity/Vol] 20 U/L 16-61 [facility] Serum or plasma albumin you urement (mass/volume)Ordered By: Adam Ferraro on 12-28-2024 Albumin [Mass/Vol] 3.0 g/dL Low 3.2-5.0 [facility] Serum or plasma alkaline hal sphatase measurementOrdered By: Adam Ferraro 12-28-2024 ALP [Catalytic activity/Vol] 81 U/L 45-117 [facility] Serum or plasma calcium you urement (mass/volume)Ordered By: Adam Ferraro on 12-28-2024 Calcium [Mass/Vol] 9.3 mg/dL 8.5-10.1 [facility] Serum or plasma creatinine m easurement (mass/volume)Ordered By: Adam Ferraro on 12-28-2024 Creatinine [Mass/Vol] 2.09 mg/dL High 0.70-1.30 [facility] Comment on above: The validity of the calculated GFR & GFRAA in patients over 70 years has not been determined. Clinical correlation is essential. Serum or plasma urea nitroge n measurement (mass/volume)Ordered By: Adam Ferraro on 12-28-2024 Urea nitrogen [Mass/Vol] 21 mg/dL High 7-18 [facility] Serum or plasma uric acid me asurement (mass/volume)Ordered By: Adam Ferraro on 12-28-2024 Urate [Mass/Vol] 5.8 mg/dL 3.5-7.2 [facility] Comment on above: The drugs N-Acetylcy steine and Metamizole may falsely depress this assay. Sodium levelOrdered By: Spike Ferraro on 12-28-2024 Sodium [Moles/Vol] 141 mmol/L 136-145 [facility] Total proteinOrdered By: Benoit Ferraro on 12-28-2024 Protein [Mass/Vol] 6.4 g/dL 6.4-8.2 [facility] Uric Acidon 12-28-2024 URIC 5.8 mg/dL Normal 3.5-7.2 [facility] Comment on above: Order Comment: 111.2 [id number] Result Comment: The drugs N-Acetylcysteine and Metamizole may falsely depress this assay. Performed By: #### L 501.2300, L500.4050, L501.9060, L100.0100 #### [facility] [address] [place], [place], [id number] White blood cell (WBC) count Ordered By: Adam Ferraro on 12-28-2024 WBC (Bld) [#/Vol] 10.5 10*3/uL 4.4-11.0 [facility] Serum or plasma uric acid me asurement (mass/volume)Ordered By: Adam Ferraro on 11-27-2024 Urate [Mass/Vol] 5.8 mg/dL 3.5-7.2 [facility] Comment on above: The drugs N-Acetylcy steine and Metamizole may falsely depress this assay. Uric Acidon 11-27-2024 URIC 5.8 mg/dL Normal 3.5-7.2 [facility] Comment on above: Order Comment: 111.2 Result Comment: The drugs N-Acetylcysteine and Metamizole may falsely depress this assay. Performed By: #### L 501.1400 #### [facility] [address] [place], [address] Absolute neutrophil countOrd ered By: Adam Ferraro on 11-15-2024 Neutrophils (Bld) [#/Vol] 6.8 10*3/uL 2.0-7.7 [facility] Basic Metabolic Profile (BMP )on 11-15-2024 BUN/CRE 10.0 RATIO Normal 10-20 [facility] Comment on above: Order Comment: 111.2 Performed By: #### L 501.2300, L500.4050, L501.9060, L100.0100 #### [facility] [address] [place], [address] CA,Total 9.6 mg/dL Normal 8.5-10.1 [facility] Comment on above: Order Comment: 111.2 Performed By: #### L 501.2300, L500.4050, L501.9060, L100.0100 #### [facility] [address] [place], [address] Chloride [Moles/Vol] 108 mmol/L High 98-107 [facility] Comment on above: Order Comment: 111.2 Performed By: #### L 501.2300, L500.4050, L501.9060, L100.0100 #### [facility] [address] [place], [address] CO2 [Moles/Vol] 23.0 mmol/L Normal 21.0-32.0 [facility] Comment on above: Order Comment: 111.2 Performed By: #### L 501.2300, L500.4050, L501.9060, L100.0100 #### [facility] [address] [place], [address] Creatinine [Mass/Vol] 2.30 mg/dL High 0.70-1.30 [facility] Comment on above: Order Comment: 111.2 Result Comment: The validity of the calculated GFR GFRAA in patients over 70 years has not been determined. Clinical correlation is essential. Performed By: #### L 501.2300, L500.4050, L501.9060, L100.0100 #### [facility] [address] [place], [address] EST GFR - AA 37 mL/min Low >60 [facility] Comment on above: Order Comment: 111.2 Result Comment: Afri can Haitian GFR Calc Performed By: #### L 501.2300, L500.4050, L501.9060, L100.0100 #### [facility] [address] [place], [address] GAP 8 Normal 5-15 [facility] Comment on above: Order Comment: 111.2 Performed By: #### L 501.2300, L500.4050, L501.9060, L100.0100 #### [facility] [address] [place], [address] GFR/1.73 sq M.predicted among non-blacks MDRD (S/P/Bld) [Vol rate/Area] 31 mL/min/{1.73_m2} Low >60 [facility] Comment on above: Order Comment: 111.2 Result Comment: Non- GFR Calc Performed By: #### L 501.2300, L500.4050, L501.9060, L100.0100 #### [facility] [address] [place], [address] Glucose [Mass/Vol] 114 mg/dL High 74-106 [facility] Comment on above: Order Comment: 111.2 Result Comment: Fast ing Glucose result from 100 to 125 mg/dL suggests IMPAIRED HOMEOSTASIS per A.D.A. criteria. Performed By: #### L 501.2300, L500.4050, L501.9060, L100.0100 #### [facility] [address] [place], [address] Potassium [Moles/Vol] 4.2 mmol/L Normal 3.5-5.1 [facility] Comment on above: Order Comment: 111.2 Performed By: #### L 501.2300, L500.4050, L501.9060, L100.0100 #### [facility] [address] [place], [address] Sodium [Moles/Vol] 140 mmol/L Normal 136-145 [facility] Comment on above: Order Comment: 111.2 Performed By: #### L 501.2300, L500.4050, L501.9060, L100.0100 #### [facility] [address] [place], [address] Urea nitrogen [Mass/Vol] 23 mg/dL High 7-18 [facility] Comment on above: Order Comment: 111.2 Performed By: #### L 501.2300, L500.4050, L501.9060, L100.0100 #### [facility] [address] [place], [address] Basophil percentageOrdered B y: Adam Ferraro on 11-15-2024 Basophils/100 WBC (Bld) 1.2 % High 0-1 [facility] Blood urea nitrogen (BUN)/cr eatinine ratioOrdered By: Adam Ferraro on 11-15-2024 Urea nitrogen/Creatinine [Mass ratio] 10.0 mg/mg 10-20 [facility] CBC W/Diff, Automatedon 01-0 2-2024 Absolute Lymph 2.67 X10 3/uL Normal 0.83-4.51 [facility] Comment on above: Order Comment: 111.2 Performed By: #### L 501.2300, L500.4050, L501.9060, L100.0100 #### [facility] [address] [place], [address] Absolute Neut 6.8 X10 3/uL Normal 2.0-7.7 [facility] Comment on above: Order Comment: 111.2 Performed By: #### L 501.2300, L500.4050, L501.9060, L100.0100 #### [facility] [address] [place], [address] Basophils/100 WBC (Bld) 1.2 % High 0-1 [facility] Comment on above: Order Comment: 111.2 Performed By: #### L 501.2300, L500.4050, L501.9060, L100.0100 #### [facility] [address] [place], [address] Eosinophils/100 WBC (Bld) 4.6 % Normal 0-5 [facility] Comment on above: Order Comment: 111.2 Performed By: #### L 501.2300, L500.4050, L501.9060, L100.0100 #### [facility] [address] [place], [address] Erythrocyte distribution width (RBC) [Ratio] 12.9 % Normal 11.6-14.6 [facility] Comment on above: Order Comment: 111.2 Performed By: #### L 501.2300, L500.4050, L501.9060, L100.0100 #### [facility] [address] [place], [address] Hematocrit (Bld) [Volume fraction] 41.5 % Normal 40-54 [facility] Comment on above: Order Comment: 111.2 Performed By: #### L 501.2300, L500.4050, L501.9060, L100.0100 #### [facility] [address] [place], [address] Hemoglobin (Bld) [Mass/Vol] 13.6 g/dL Normal 13.0-16.5 [facility] Comment on above: Order Comment: 111.2 Performed By: #### L 501.2300, L500.4050, L501.9060, L100.0100 #### [facility] [address] [place], [address] IG% 0.500 Normal 0.0-0.9 [facility] Comment on above: Order Comment: 111.2 Result Comment: IG% - Immature Granulocytes (promyelocytes, myelocytes and metamyelocytes) > 1% indicates that a LEFT SHIFT is Present. Performed By: #### L 501.2300, L500.4050, L501.9060, L100.0100 #### [facility] [address] [place], [address] Lymphocytes/100 WBC (Bld) 23.8 % Normal 19-41 [facility] Comment on above: Order Comment: 111.2 Performed By: #### L 501.2300, L500.4050, L501.9060, L100.0100 #### [facility] [address] [place], [address] MCH (RBC) [Entitic mass] 29.9 pg Normal 27.0-32.0 [facility] Comment on above: Order Comment: 111.2 Performed By: #### L 501.2300, L500.4050, L501.9060, L100.0100 #### [facility] [address] [place], [address] MCHC (RBC) [Mass/Vol] 32.8 g/dL Normal 32-36 [facility] Comment on above: Order Comment: 111.2 Performed By: #### L 501.2300, L500.4050, L501.9060, L100.0100 #### [facility] [address] [place], [address] MCV (RBC) [Entitic vol] 91.2 fL Normal 80-94 [facility] Comment on above: Order Comment: 111.2 Performed By: #### L 501.2300, L500.4050, L501.9060, L100.0100 #### [facility] [address] [place], [address] Monocytes/100 WBC (Bld) 9.8 % Normal 0-10 [facility] Comment on above: Order Comment: 111.2 Performed By: #### L 501.2300, L500.4050, L501.9060, L100.0100 #### [facility] [address] [place], [address] Neutrophils/100 WBC (Bld) 60.1 % Normal 47-70 [facility] Comment on above: Order Comment: 111.2 Performed By: #### L 501.2300, L500.4050, L501.9060, L100.0100 #### [facility] [address] [place], [address] Nucleated RBC (Bld) [#/Vol] 0 10*3/uL Normal 0-5 [facility] Comment on above: Order Comment: 111.2 Performed By: #### L 501.2300, L500.4050, L501.9060, L100.0100 #### [facility] [address] [place], [address] Platelet mean volume (Bld) [Entitic vol] 9.5 fL Normal 6.2-12.0 [facility] Comment on above: Order Comment: 111.2 Performed By: #### L 501.2300, L500.4050, L501.9060, L100.0100 #### [facility] [address] [place], [address] Platelets (Bld) [#/Vol] 257 10*3/uL Normal 150-450 [facility] Comment on above: Order Comment: 111.2 Performed By: #### L 501.2300, L500.4050, L501.9060, L100.0100 #### [facility] [address] [place], [address] RBC (Bld) [#/Vol] 4.55 10*6/uL Low 4.6-6.2 [facility] Comment on above: Order Comment: 111.2 Performed By: #### L 501.2300, L500.4050, L501.9060, L100.0100 #### [facility] [address] [place], [address] RDW SD 42.9 fl Normal 35.1-43.9 [facility] Comment on above: Order Comment: 111.2 Performed By: #### L 501.2300, L500.4050, L501.9060, L100.0100 #### [facility] [address] [place], [address] WBC (Bld) [#/Vol] 11.2 10*3/uL High 4.4-11.0 [facility] Comment on above: Order Comment: 111.2 Performed By: #### L 501.2300, L500.4050, L501.9060, L100.0100 #### [facility] [address] [place], [address] Carbon dioxide measurementOr dered By: Adam Ferraro on 11-15-2024 CO2 [Moles/Vol] 23.0 mmol/L 21.0-32.0 [facility] Chloride measurementOrdered By: Adam Ferraro on 11-15-2024 Chloride [Moles/Vol] 108 mmol/L High 98-107 [facility] Eosinophil percentageOrdered By: Adam Ferraro on 11-15-2024 Eosinophils/100 WBC (Bld) 4.6 % 0-5 [facility] Erythrocyte distribution wid th ratioOrdered By: Adam Ferraro on 11-15-2024 Erythrocyte distribution width (RBC) [Ratio] 12.9 % 11.6-14.6 [facility] Erythrocyte distribution wid th standard deviationOrdered By: Adam Ferraro on 11-15-2024 Erythrocyte distribution width (RBC) [Entitic vol] 42.9 fL 35.1-43.9 [facility] Estimated glomerular filtrat ion rate (GFR) AmericanOrdered By: Adam Ferraro on 11-15-2024 Estimated GFR (MDRD) Amer 37 mL/min Low >60 [facility] Comment on above: GFR Calc Glomerular filtration rate ( GFR) estimationOrdered By: Adam Ferraro on 11-15-2024 Estimated GFR (MDRD) Non-Af Amer 31 mL/min Low >60 [facility] Comment on above: Non- GFR Calc Glucose measurementOrdered B y: Adam Ferraro on 11-15-2024 Glucose [Mass/Vol] 114 mg/dL High 74-106 [facility] Comment on above: Fasting Glucose resu lt from 100 to 125 mg/dL suggests IMPAIRED HOMEOSTASIS per A.D.A. criteria. Hematocrit Auto (Bld) [Volum e fraction]Ordered By: Adam Ferraro on 11-15-2024 Hematocrit (Bld) [Volume fraction] 41.5 % 40-54 [facility] Hemoglobin measurementOrdere d By: Adam Ferraro on 11-15-2024 Hemoglobin (Bld) [Mass/Vol] 13.6 g/dL 13.0-16.5 [facility] Immature granulocytes/100 WB C Auto (Bld)Ordered By: Adam Ferraro on 11-15-2024 Immature granulocytes/100 WBC (Bld) 0.500 % 0.0-0.9 [facility] Comment on above: IG% - Immature Granu locytes (promyelocytes, myelocytes and metamyelocytes) > 1% indicates that a LEFT SHIFT is Present. Lithiumon 11-15-2024 LI 0.60 mmol/L Normal 0.60-1.20 [facility] Comment on above: Order Comment: 111.2 Performed By: #### L 501.2300, L500.4050, L501.9060, L100.0100 #### [facility] [address] [place], [place], [id number] [place] levelOrdered By: Benoit Ferraro on 11-15-2024 [place] Level 0.60 mmol/L 0.60-1.20 [facility] Lymphocytes Auto (Unsp spec) [#/Vol]Ordered By: Adam Ferraro on 11-15-2024 Lymphocytes (Bld) [#/Vol] 2.67 10*3/uL 0.83-4.51 [facility] Lymphocytes/100 WBC Auto (Un sp spec)Ordered By: Adam Ferraro on 11-15-2024 Lymphocytes/100 WBC (Bld) 23.8 % 19-41 [facility] MCV (mean corpuscular volume ) determinationOrdered By: Adam Ferraro on 11-15-2024 MCV (RBC) [Entitic vol] 91.2 fL 80-94 [facility] Mean corpuscular hemoglobin (MCH) determinationOrdered By: Adam Ferraro on 11-15-2024 MCH (RBC) [Entitic mass] 29.9 pg 27.0-32.0 [facility] Mean corpuscular hemoglobin concentration (MCHC) determinationOrdered By: Adam Ferraro on 11-15-2024 MCHC (RBC) [Mass/Vol] 32.8 g/dL 32-36 [facility] Mean platelet volume determi nationOrdered By: Adam Ferraro on 11-15-2024 Platelet mean volume (Bld) [Entitic vol] 9.5 fL 6.2-12.0 [facility] Microalb:Creat Ratio,Random URon 11-15-2024 Creatinine [Mass/Vol] 50.60 mg/dL Normal NO RAN GE EST. [facility] Comment on above: Performed By: #### L 501.2300, L500.4050, L501.9060, L100.0100 #### [facility] [address] [place], [address] MALB:CRE TNP Normal <30 mg/g CRE [facility] Comment on above: Performed By: #### L 501.2300, L500.4050, L501.9060, L100.0100 #### [facility] [address] [place], [address] MICROALBUMIN,UR < 5.0 Normal NO RANGE EST. [facility] Comment on above: Performed By: #### L 501.2300, L500.4050, L501.9060, L100.0100 #### [facility] [address] [place], [address] Monocyte percentageOrdered B y: Adam Ferraro on 11-15-2024 Monocytes/100 WBC (Bld) 9.8 % 0-10 [facility] Neutrophil percentageOrdered By: Adam Ferraro on 11-15-2024 Neutrophils/100 WBC (Bld) 60.1 % 47-70 [facility] Nucleated red blood cell per centageOrdered By: Adam Ferraro on 11-15-2024 Nucleated RBC/100 WBC (Bld) [Ratio] 0 % 0-5 [facility] Platelet countOrdered By: Sabino Ferraro on 11-15-2024 Platelets (Bld) [#/Vol] 257 10*3/uL 150-450 [facility] Potassium measurementOrdered By: Adam Ferraro on 11-15-2024 Potassium [Moles/Vol] 4.2 mmol/L 3.5-5.1 [facility] RBC Auto (Bld) [#/Vol]Ordere d By: Adam Ferraro on 11-15-2024 RBC (Bld) [#/Vol] 4.55 10*6/uL Low 4.6-6.2 [facility] Random urine microalbumin me asurementOrdered By: Adam Ferraro on 11-15-2024 Urine Random Microalbumin < 5.0 mg/L NO RANGE EST. [facility] Serum anion gap measurementO rdered By: Adam Ferraro on 11-15-2024 Anion gap [Moles/Vol] 8 mmol/L 5-15 [facility] Serum or plasma calcium you urement (mass/volume)Ordered By: Adam Ferraro on 11-15-2024 Calcium [Mass/Vol] 9.6 mg/dL 8.5-10.1 [facility] Serum or plasma creatinine m easurement (mass/volume)Ordered By: Adam Ferraro on 11-15-2024 Creatinine [Mass/Vol] 2.30 mg/dL High 0.70-1.30 [facility] Comment on above: The validity of the calculated GFR & GFRAA in patients over 70 years has not been determined. Clinical correlation is essential. Serum or plasma urea nitroge n measurement (mass/volume)Ordered By: Adam Ferraro on 11-15-2024 Urea nitrogen [Mass/Vol] 23 mg/dL High 7-18 [facility] Sodium levelOrdered By: Spike Ferraro on 11-15-2024 Sodium [Moles/Vol] 140 mmol/L 136-145 [facility] Urine albumin/creatinine rat io for detection of microalbuminuriaOrdered By: Adam Ferraro on 11-15-2024 Urine Microalbumin/Creatinine Ratio TNP [facility] Comment on above: Test not performed Urine creatinine measurement (mass/volume)Ordered By: Adam Ferraro on 11-15-2024 Creatinine (U) [Mass/Vol] 50.60 mg/dL NO RANGE EST. [facility] White blood cell (WBC) count Ordered By: Adam Ferraro on 11-15-2024 WBC (Bld) [#/Vol] 11.2 10*3/uL High 4.4-11.0 [facility] Serum or plasma uric acid me asurement (mass/volume)Ordered By: Adam Ferraro on 09-27-2024 Urate [Mass/Vol] 5.4 mg/dL 3.5-7.2 [facility] Comment on above: The drugs N-Acetylcy steine and Metamizole may falsely depress this assay. Uric Acidon 09-27-2024 URIC 5.4 mg/dL Normal 3.5-7.2 [facility] Comment on above: Order Comment: 111.2 [id number] Result Comment: The drugs N-Acetylcysteine and Metamizole may falsely depress this assay. Performed By: #### L 501.2300, L500.4050, L501.9060, L100.0100 #### [facility] [place], [address] OVon 09-14-2024 CNOV Office Visit (RHBATH ) -- REGGIE LEÓN ([id number]) 1965 M Date Time Provider Department 09/14/24 9:00 [facility] During your visit today, we recorded the [...] MEDICAL HISTORY Diagnosis Date Bipolar disorder, unspecified ([facility]) [facility] 18 [facility]; stable on meds Chronic systolic CHF (congestive heart failure) ([facility]) 03/19/2021 Convulsions ([facility]) 08/10/2019 Diabetes ([facility]) Diabetes mellitus ([facility]) Diverticulosis of colon (without mention of hemorrhage) DVT (deep venous thrombosis) ([facility]) 2014 rina-op. on anticoagulants, 2016 [...] pulm involvement, high dose predinsone and rituximab [id number], started Aug 16, 2016; 07/30. flared spring 2017, induced with pred and rituximab PAST SURGICAL HISTORY Procedure Laterality Date CHOLECYSTECTOMY 2013 [facility] COLONOSCOPY FLX DX W/COLLJ SPEC WHEN [...] PROT:CRE RATIO 97 mg/g CRE Normal 0-200 [facility] Comment on above: Performed By: #### L 501.2300, L500.4050, L501.9060, L100.0100 #### [facility] [address] [place], [address] Protein (U) [Mass/Vol] 11.9 mg/dL High <11.9 [facility] Comment on above: Performed By: #### L 501.2300, L500.4050, L501.9060, L100.0100 #### [facility] [address] [place], [address] UR CREAT 123.00 mg/dL Normal NO RANGE EST. [facility] Comment on above: Performed By: #### L 501.2300, L500.4050, L501.9060, L100.0100 #### [facility] [address] [place], [address] CBC W/Diff, Automatedon 10-3 0-2024 Absolute Lymph 2.84 X10 3/uL Normal 0.83-4.51 [facility] Comment on above: Order Comment: 111.2 Performed By: #### L 100.0100, L501.2300, L500.4050 #### [facility] [address] [place], [address] Absolute Neut 5.3 X10 3/uL Normal 2.0-7.7 [facility] Comment on above: Order Comment: 111.2 Performed By: #### L 100.0100, L501.2300, L500.4050 #### [facility] [address] [place], [address] Basophils/100 WBC (Bld) 1.0 % Normal 0-1 [facility] Comment on above: Order Comment: 111.2 Performed By: #### L 100.0100, L501.2300, L500.4050 #### [facility] [address] [place], [address] Eosinophils/100 WBC (Bld) 4.0 % Normal 0-5 [facility] Comment on above: Order Comment: 111.2 Performed By: #### L 100.0100, L501.2300, L500.4050 #### [facility] [address] [place], [address] Erythrocyte distribution width (RBC) [Ratio] 13.2 % Normal 11.6-14.6 [facility] Comment on above: Order Comment: 111.2 Performed By: #### L 100.0100, L501.2300, L500.4050 #### [facility] [address] [place], [address] Hematocrit (Bld) [Volume fraction] 39.6 % Low 40-54 [facility] Comment on above: Order Comment: 111.2 Performed By: #### L 100.0100, L501.2300, L500.4050 #### [facility] [address] [place], [address] Hemoglobin (Bld) [Mass/Vol] 13.0 g/dL Normal 13.0-16.5 [facility] Comment on above: Order Comment: 111.2 Performed By: #### L 100.0100, L501.2300, L500.4050 #### [facility] [address] [place], [address] IG% 0.400 Normal 0.0-0.9 [facility] Comment on above: Order Comment: 111.2 Result Comment: IG% - Immature Granulocytes (promyelocytes, myelocytes and metamyelocytes) > 1% indicates that a LEFT SHIFT is Present. Performed By: #### L 100.0100, L501.2300, L500.4050 #### [facility] [address] [place], [address] Lymphocytes/100 WBC (Bld) 29.3 % Normal 19-41 [facility] Comment on above: Order Comment: 111.2 Performed By: #### L 100.0100, L501.2300, L500.4050 #### [facility] [address] [place], [address] MCH (RBC) [Entitic mass] 29.8 pg Normal 27.0-32.0 [facility] Comment on above: Order Comment: 111.2 Performed By: #### L 100.0100, L501.2300, L500.4050 #### [facility] [address] [place], [address] MCHC (RBC) [Mass/Vol] 32.8 g/dL Normal 32-36 [facility] Comment on above: Order Comment: 111.2 Performed By: #### L 100.0100, L501.2300, L500.4050 #### [facility] [address] [place], [address] MCV (RBC) [Entitic vol] 90.8 fL Normal 80-94 [facility] Comment on above: Order Comment: 111.2 Performed By: #### L 100.0100, L501.2300, L500.4050 #### [facility] [address] [place], [address] Monocytes/100 WBC (Bld) 10.1 % High 0-10 [facility] Comment on above: Order Comment: 111.2 Performed By: #### L 100.0100, L501.2300, L500.4050 #### [facility] [address] [place], [address] Neutrophils/100 WBC (Bld) 55.2 % Normal 47-70 [facility] Comment on above: Order Comment: 111.2 Performed By: #### L 100.0100, L501.2300, L500.4050 #### [facility] [address] [place], [address] Nucleated RBC (Bld) [#/Vol] 0 10*3/uL Normal 0-5 [facility] Comment on above: Order Comment: 111.2 Performed By: #### L 100.0100, L501.2300, L500.4050 #### [facility] [address] [place], [address] Platelet mean volume (Bld) [Entitic vol] 9.7 fL Normal 6.2-12.0 [facility] Comment on above: Order Comment: 111.2 Performed By: #### L 100.0100, L501.2300, L500.4050 #### [facility] [address] [place], [address] Platelets (Bld) [#/Vol] 243 10*3/uL Normal 150-450 [facility] Comment on above: Order Comment: 111.2 Performed By: #### L 100.0100, L501.2300, L500.4050 #### [facility] [address] [place], [address] RBC (Bld) [#/Vol] 4.36 10*6/uL Low 4.6-6.2 [facility] Comment on above: Order Comment: 111.2 Performed By: #### L 100.0100, L501.2300, L500.4050 #### [facility] [address] [place], [address] RDW SD 43.3 fl Normal 35.1-43.9 [facility] Comment on above: Order Comment: 111.2 Performed By: #### L 100.0100, L501.2300, L500.4050 #### [facility] [address] [place], [address] WBC (Bld) [#/Vol] 9.7 10*3/uL Normal 4.4-11.0 [facility] Comment on above: Order Comment: 111.2 Performed By: #### L 100.0100, L501.2300, L500.4050 #### [facility] [address] [place], [address] Comprehensive Metabolic [facility] 09-12-2024 Albumin [Mass/Vol] 3.0 g/dL Low 3.2-5.0 [facility] Comment on above: Order Comment: 111.2 Performed By: #### L 100.0100, L501.2300, L500.4050 #### [facility] [address] [place], [address] Albumin/Globulin [Mass ratio] 1.0 {ratio} Normal 0.9-2.4 [facility] Comment on above: Order Comment: 111.2 Performed By: #### L 100.0100, L501.2300, L500.4050 #### [facility] [address] [place], [address] ALK P 87 U/L Normal 45-117 [facility] Comment on above: Order Comment: 111.2 Performed By: #### L 100.0100, L501.2300, L500.4050 #### [facility] [address] [place], [address] ALT [Catalytic activity/Vol] 19 U/L Normal 16-61 [facility] Comment on above: Order Comment: 111.2 Performed By: #### L 100.0100, L501.2300, L500.4050 #### [facility] [address] [place], [address] AST [Catalytic activity/Vol] 8 U/L Low 15-37 [facility] Comment on above: Order Comment: 111.2 Performed By: #### L 100.0100, L501.2300, L500.4050 #### [facility] [address] [place], [address] Bilirubin [Mass/Vol] 0.20 mg/dL Normal 0.20-1.00 [facility] Comment on above: Order Comment: 111.2 Result Comment: For patients on eltrombopag therapy, use of Dimension [place] TBIL is not recommended. Performed By: #### L 100.0100, L501.2300, L500.4050 #### [facility] [address] [place], [address] BUN/CRE 10.4 RATIO Normal 10-20 [facility] Comment on above: Order Comment: 111.2 Performed By: #### L 100.0100, L501.2300, L500.4050 #### [facility] [address] [place], [address] CA,Total 9.3 mg/dL Normal 8.5-10.1 [facility] Comment on above: Order Comment: 111.2 Performed By: #### L 100.0100, L501.2300, L500.4050 #### [facility] [address] [place], [address] Chloride [Moles/Vol] 109 mmol/L High 98-107 [facility] Comment on above: Order Comment: 111.2 Performed By: #### L 100.0100, L501.2300, L500.4050 #### [facility] [address] [place], [address] CO2 [Moles/Vol] 27.0 mmol/L Normal 21.0-32.0 [facility] Comment on above: Order Comment: 111.2 Performed By: #### L 100.0100, L501.2300, L500.4050 #### [facility] [address] [place], [address] Creatinine [Mass/Vol] 2.22 mg/dL High 0.70-1.30 [facility] Comment on above: Order Comment: 111.2 Result Comment: The validity of the calculated GFR GFRAA in patients over 70 years has not been determined. Clinical correlation is essential. Performed By: #### L 100.0100, L501.2300, L500.4050 #### [facility] [address] [place], [address] EST GFR - AA 39 mL/min Low >60 [facility] Comment on above: Order Comment: 111.2 Result Comment: Afri can Haitian GFR Calc Performed By: #### L 100.0100, L501.2300, L500.4050 #### [facility] [address] [place], [address] GAP 6 Normal 5-15 [facility] Comment on above: Order Comment: 111.2 Performed By: #### L 100.0100, L501.2300, L500.4050 #### [facility] [address] [place], [address] GFR/1.73 sq M.predicted among non-blacks MDRD (S/P/Bld) [Vol rate/Area] 32 mL/min/{1.73_m2} Low >60 [facility] Comment on above: Order Comment: 111.2 Result Comment: Non- GFR Calc Performed By: #### L 100.0100, L501.2300, L500.4050 #### [facility] [address] [place], [address] Globulin (S) [Mass/Vol] 2.9 g/dL Normal 2.2-4.2 [facility] Comment on above: Order Comment: 111.2 Performed By: #### L 100.0100, L501.2300, L500.4050 #### [facility] [address] [place], [address] Glucose [Mass/Vol] 122 mg/dL High 74-106 [facility] Comment on above: Order Comment: 111.2 Result Comment: Fast ing Glucose result from 100 to 125 mg/dL suggests IMPAIRED HOMEOSTASIS per A.D.A. criteria. Performed By: #### L 100.0100, L501.2300, L500.4050 #### [facility] [address] [place], [address] Potassium [Moles/Vol] 3.9 mmol/L Normal 3.5-5.1 [facility] Comment on above: Order Comment: 111.2 Performed By: #### L 100.0100, L501.2300, L500.4050 #### [facility] [address] [place], [address] Sodium [Moles/Vol] 142 mmol/L Normal 136-145 [facility] Comment on above: Order Comment: 111.2 Performed By: #### L 100.0100, L501.2300, L500.4050 #### [facility] [address] [place], [address] T PROT 5.9 g/dL Low 6.4-8.2 [facility] Comment on above: Order Comment: 111.2 Performed By: #### L 100.0100, L501.2300, L500.4050 #### [facility] [address] [place], [address] Urea nitrogen [Mass/Vol] 23 mg/dL High 7-18 [facility] Comment on above: Order Comment: 111.2 Performed By: #### L 100.0100, L501.2300, L500.4050 #### [facility] [address] [place], [address] Phosphoruson 09-12-2024 Phosphate [Mass/Vol] 4.7 mg/dL Normal 2.5-4.9 [facility] Comment on above: Order Comment: 111-2 Performed By: #### L 501.1400 #### [facility] [address] [place], [address] Uric Acidon 08-27-2024 URIC 6.3 mg/dL Normal 3.5-7.2 [facility] Comment on above: Order Comment: 111.2 Result Comment: The drugs N-Acetylcysteine and Metamizole may falsely depress this assay. Performed By: #### L 501.2300, L500.4050, L501.9060, L100.0100 #### [facility] [address] [place], [address] Lipid Profileon 08-10-2024 Cholesterol [Mass/Vol] 148 mg/dL Normal 200 [facility] Comment on above: Order Comment: 111-2 Result Comment: <200 mg/dL Desirable 200-240 mg/dL Borderline >240 mg/dL High Risk Performed By: #### L 501.1400 #### [facility] [address] [place], [address] Cholesterol in HDL [Mass/Vol] 41 mg/dL Normal [facility] Comment on above: Order Comment: 111-2 Result Comment: The drugs N-Acetylcysteine and Metamizole may falsely depress this assay. Reference Range HDL <40 mg/dL Low HDL Cholesterol HDL >or= 60 mg/dL High HDL Cholesterol Performed By: #### L 501.1400 #### [facility] [address] [place], [address] Cholesterol in LDL [Mass/Vol] 80 mg/dL Normal 0-130 [facility] Comment on above: Order Comment: 111-2 Performed By: #### L 501.1400 #### [facility] [address] [place], [address] Cholesterol in VLDL [Mass/Vol] 27 mg/dL Normal 5-40 [facility] Comment on above: Order Comment: 111-2 Performed By: #### L 501.1400 #### [facility] [address] [place], [address] Triglyceride [Mass/Vol] 133 mg/dL Normal [facility] Comment on above: Order Comment: 111-2 Result Comment: The drugs N-Acetylcysteine and Metamizole may falsely depress this assay. Serum Triglycerides Reference Interval Normal <150 mg/dL Borderline high 150 - 199 mg/dL High 200 - 499 mg/dL Very High > or = 500 mg/dL Performed By: #### L 501.1400 #### [facility] [address] [place], [address] Lithiumon 08-10-2024 LI 0.60 mmol/L Normal 0.60-1.20 [facility] Comment on above: Order Comment: 111-2 Performed By: #### L 501.1400 #### [facility] [address] [place], [address] Lipid Profileon 08-09-2024 CHOL Normal 200 [facility] Comment on above: Order Comment: 111-2 Result Comment: TANYA ENT LEFT FACILITY FOR AN APPOINTMENT Performed By: #### L 501.1400 #### [facility] [address] [place], [address] HDL Normal [facility] Comment on above: Order Comment: 111-2 Result Comment: T[facility]A [facility] LEFT FACILITY FOR AN APPOINTMENT Performed By: #### L 501.1400 #### [facility] [address] [place], [address] LDL Normal 0-130 [facility] Comment on above: Order Comment: 111-2 Result Comment: TANYA E[facility] LEFT FACILITY FOR AN APPOINTMENT Performed By: #### L 501.1400 #### [facility] [address] [place], [address] TRIG Normal [facility] Comment on above: Order Comment: 111-2 Result Comment: TANYA ENT LEFT FACILITY FOR AN APPOINTMENT Performed By: #### L 501.1400 #### [facility] [address] [place], [address] VLDL Normal 5-40 [facility] Comment on above: Order Comment: 111-2 Result Comment: TANYA E[facility] LEFT FACILITY FOR AN APPOINTMENT Performed By: #### L 501.1400 #### [facility] [address] [place], [address] Vitamin D,25 Hydroxyon 07-31 Vitamin D 25-OH 73.0 ng/mL Normal [facility] Comment on above: Order Comment: 111.2 Result Comment: Moriah min D 25(OH) Status Range Deficiency <20 ng/mL (50nmol/L) Insufficiency 20 - 30 ng/mL (50 - 75 nmol/L) Sufficiency 30 - 100 ng/mL (75 - 250 nmol/L) Toxicity >100 ng/mL (>250 nmol/L) Performed By: #### L 501.2300, L500.4050, L501.9060, L100.0100 #### [facility] [address] [place], [address] CNOVon 07-17-2024 CNOV Office Visit (KIDMMN ) -- REGGIE LEÓN ([id number]) 1965 M Date Time Provider Department 07/17/24 [...] MEDICAL HISTORY age 18: Bipolar disorder, unspecified ([facility]) Comment: [facility], on lithium; stable on meds 03/19/2021: Chronic systolic CHF (congestive heart failure) ([facility]) 08/10/2019: Convulsions ([facility]) No date: Diabetes ([facility]) No date: Diabetes mellitus ([facility]) No date: Diverticulosis of colon (without mention of hemorrhage) 2015: DVT (deep venous thrombosis) ([facility]) Comment: rina-op. on anticoagulants, 201502/11/2010: [...] pulm involvement, high dose predinsone and rituximab [id number], started Aug 16, 2016; 07/30. flared spring [...] tablet Rafael (more content not included)... Normal [facility] URINALYSIS, REFLEX MICROSCOP ICon 07-17-2024 Bilirubin Ql (U) Negative Negative [facility] Clarity (Unsp spec) Clear Clear [facility] Color (U) Yellow Yellow [facility] Glucose Test strip (U) [Mass/Vol] Negative Negative [facility] Hemoglobin Ql (U) Negative Negative [facility] Interpretation and review of laboratory results Abnormal [facility] Ketones Ql (U) Negative Negative [facility] Leukocyte esterase Test strip Ql (U) Trace Abnormal Negative [facility] Nitrite Ql (U) Negative Negative [facility] pH (U) 7.0 [pH] NINF - 8.5 [facility] Protein (U) [Mass/Vol] Negative Negative [facility] Specific gravity (U) [Rel density] 1.009 1.005 - 1.030 [facility] Urobilinogen Ql (U) 0.2 EU/dL 0.2-1.0 EU/dL [facility] This test was develo ped and its performance characteristics determined by [facility]'s [facility]avi Hernandez [facility] [place] ([facility]). It has not been cleared or approved by the FDA. [facility] is regulated under CLIA as qualified to perform high-complexity testing. This test is used for clinical purposes. It should not be regarded as investigational or for research. [facility] Bilirubin Ql (U) Negative Normal Negative [facility] Comment on above: Order Comment: Speci men Type: URINE SPECIMEN Ordering Facility: [facility] Address: [address] [place] [address] Performed By: #### L [id number] #### [facility] CLIA [id number] [address] [place] [address] [place] Clarity (Unsp spec) Clear Normal Clear [facility] Comment on above: Order Comment: Speci men Type: URINE SPECIMEN Ordering Facility: [facility] Address: [address] [place] [address] Performed By: #### L [id number] #### [facility] CLIA [id number] [address] [place] [address] [place] Color (U) Yellow Normal Yellow [facility] Comment on above: Order Comment: Speci men Type: URINE SPECIMEN Ordering Facility: [facility] Address: [address] [place] [address] Performed By: #### L [id number] #### [facility] CLIA [id number] [address] [place] [address] [place] Glucose Test strip (U) [Mass/Vol] Negative Normal Negative [facility] Comment on above: Order Comment: Speci men Type: URINE SPECIMEN Ordering Facility: [facility] Address: [address] [place] [address] Performed By: #### L [id number] #### [facility] CLIA [id number] [address] [place] [address] [place] Hemoglobin Ql (U) Negative Normal Negative [facility] Comment on above: Order Comment: Speci men Type: URINE SPECIMEN Ordering Facility: [facility] Address: [address] [place] [address] Performed By: #### L [id number] #### [facility] CLIA [id number] [address] [place] [address] [place] Ketones Ql (U) Negative Normal Negative [facility] Comment on above: Order Comment: Speci men Type: URINE SPECIMEN Ordering Facility: [facility] Address: [address] [place] [address] Performed By: #### L [id number] #### [facility] CLIA [id number] [address] [place] [address] [place] Leukocyte esterase Test strip Ql (U) Trace Abnormal Negative [facility] Comment on above: Order Comment: Speci men Type: URINE SPECIMEN Ordering Facility: [facility] Address: [address] [place] [address] Performed By: #### L [id number] #### [facility] CLIA [id number] [address] [place] [address] [place] Nitrite Ql (U) Negative Normal Negative [facility] Comment on above: Order Comment: Speci men Type: URINE SPECIMEN Ordering Facility: [facility] Address: [address] [place] [address] Performed By: #### L [id number] #### [facility] CLIA [id number] [address] [place] [address] [place] pH (U) 7.0 [pH] Normal <8.5 [facility] Comment on above: Order Comment: Speci men Type: URINE SPECIMEN Ordering Facility: [facility] Address: [address] [place] [address] Performed By: #### L [id number] #### [facility] CLIA [id number] [address] [place] [address] [place] Protein (U) [Mass/Vol] Negative Normal Negative [facility] Comment on above: Order Comment: Speci men Type: URINE SPECIMEN Ordering Facility: [facility] Address: [address] [place] [address] Performed By: #### L [id number] #### [facility] CLIA [id number] [address] [place] [address] [place] Specific gravity (U) [Rel density] 1.009 Normal 1.005-1.03 0 [facility] Comment on above: Order Comment: Speci men Type: URINE SPECIMEN Ordering Facility: [facility] Address: [address] [place] [address] Performed By: #### L [id number] #### [facility] CLIA [id number] [address] [place] [address] [place] Urobilinogen Ql (U) 0.2 EU/dL Normal 0.2-1.0 EU/dL [facility] Comment on above: Order Comment: Speci men Type: URINE SPECIMEN Ordering Facility: [facility] Address: [address] [place] [address] Performed By: #### L [id number] #### [facility] CLIA [id number] [address] [place] [address] [place] Liver Profileon 06-29-2024 Albumin [Mass/Vol] 3.2 g/dL Normal 3.2-5.0 [facility] Comment on above: Order Comment: 111.2 20250423 Performed By: #### L 501.2300, L500.4050, L501.9060, L100.0100 #### [facility] [address] [place], [address] ALK P 93 U/L Normal 45-117 [facility] Comment on above: Order Comment: 111.2 20250423 Performed By: #### L 501.2300, L500.4050, L501.9060, L100.0100 #### [facility] [address] [place], [address] ALT [Catalytic activity/Vol] 22 U/L Normal 16-61 [facility] Comment on above: Order Comment: 111.2 20250423 Performed By: #### L 501.2300, L500.4050, L501.9060, L100.0100 #### [facility] [address] [place], [address] AST [Catalytic activity/Vol] 11 U/L Low 15-37 [facility] Comment on above: Order Comment: 111.2 20250423 Performed By: #### L 501.2300, L500.4050, L501.9060, L100.0100 #### [facility] [address] [place], [address] Bilirubin [Mass/Vol] 0.20 mg/dL Normal 0.20-1.00 [facility] Comment on above: Order Comment: 111.2 20250423 Result Comment: For patients on eltrombopag therapy, use of Dimension [place] TBIL is not recommended. Performed By: #### L 501.2300, L500.4050, L501.9060, L100.0100 #### [facility] [address] [place], [address] Bilirubin.direct [Mass/Vol] 0.10 mg/dL Normal 0.00-0.30 [facility] Comment on above: Order Comment: 111.2 20250423 Performed By: #### L 501.2300, L500.4050, L501.9060, L100.0100 #### [facility] [address] [place], [address] Globulin (S) [Mass/Vol] 3.1 g/dL Normal 2.2-4.2 [facility] Comment on above: Order Comment: 111.20250423 Performed By: #### L 501.2300, L500.4050, L501.9060, L100.0100 #### [facility] [address] [place], [address] T PROT 6.3 g/dL Low 6.4-8.2 [facility] Comment on above: Order Comment: 111.2 20250423 Performed By: #### L 501.2300, L500.4050, L501.9060, L100.0100 #### [facility] [address] [place], [address] Uric Acidon 06-27-2024 URIC 5.5 mg/dL Normal 3.5-7.2 [facility] Comment on above: Order Comment: 111-2 Result Comment: The drugs N-Acetylcysteine and Metamizole may falsely depress this assay. Performed By: #### L 501.1400 #### [facility] [address] [place], [address] Protein+Creatinine Ratio,Uri neon 06-25-2024 PROT:CRE RATIO Normal 0-200 [facility] Comment on above: Order Comment: 111-2 Result Comment: PLAI N YELLOW TOP TUBE NOT COLLECTED Performed By: #### L 501.1400 #### [facility] [address] [place], [address] PROTEIN,UR.RAN. Normal <11.9 [facility] Comment on above: Order Comment: 111-2 Result Comment: PLAI N YELLOW TOP TUBE NOT COLLECTED Performed By: #### L 501.1400 #### [facility] [address] [place], [address] UR CREAT Normal NO RANGE EST. [facility] Comment on above: Order Comment: 111-2 Result Comment: PLAI N YELLOW TOP TUBE NOT COLLECTED Performed By: #### L 501.1400 #### [facility] [address] [place], [address] CBC W/Diff, Automatedon - Absolute Lymph 2.09 X10 3/uL Normal 0.83-4.51 [facility] Comment on above: Order Comment: 111.2 20250423 Performed By: #### L 501.2300, L500.4050, L501.9060, L100.0100 #### [facility] [address] [place], [address] Absolute Neut 5.3 X10 3/uL Normal 2.0-7.7 [facility] Comment on above: Order Comment: 111.2 20250423 Performed By: #### L 501.2300, L500.4050, L501.9060, L100.0100 #### [facility] [address] [place], [address] Basophils/100 WBC (Bld) 1.1 % High 0-1 [facility] Comment on above: Order Comment: 111.2 20250423 Performed By: #### L 501.2300, L500.4050, L501.9060, L100.0100 #### [facility] [address] [place], [address] Eosinophils/100 WBC (Bld) 5.4 % High 0-5 [facility] Comment on above: Order Comment: 111.20250423 Performed By: #### L 501.2300, L500.4050, L501.9060, L100.0100 #### [facility] [address] [place], [address] Erythrocyte distribution width (RBC) [Ratio] 13.0 % Normal 11.6-14.6 [facility] Comment on above: Order Comment: 111.20250423 Performed By: #### L 501.2300, L500.4050, L501.9060, L100.0100 #### [facility] [address] [place], [address] Hematocrit (Bld) [Volume fraction] 40.7 % Normal 40-54 [facility] Comment on above: Order Comment: 111.2 20250423 Performed By: #### L 501.2300, L500.4050, L501.9060, L100.0100 #### [facility] [address] [place], [address] Hemoglobin (Bld) [Mass/Vol] 13.1 g/dL Normal 13.0-16.5 [facility] Comment on above: Order Comment: 111.20250423 Performed By: #### L 501.2300, L500.4050, L501.9060, L100.0100 #### [facility] [address] [place], [address] IG% 0.300 Normal 0.0-0.9 [facility] Comment on above: Order Comment: 111.20250423 Result Comment: IG% - Immature Granulocytes (promyelocytes, myelocytes and metamyelocytes) > 1% indicates that a LEFT SHIFT is Present. Performed By: #### L 501.2300, L500.4050, L501.9060, L100.0100 #### [facility] [address] [place], [address] Lymphocytes/100 WBC (Bld) 23.7 % Normal 19-41 [facility] Comment on above: Order Comment: 111.20250423 Performed By: #### L 501.2300, L500.4050, L501.9060, L100.0100 #### [facility] [address] [place], [address] MCH (RBC) [Entitic mass] 29.5 pg Normal 27.0-32.0 [facility] Comment on above: Order Comment: 111.20250423 Performed By: #### L 501.2300, L500.4050, L501.9060, L100.0100 #### [facility] [address] [place], [address] MCHC (RBC) [Mass/Vol] 32.2 g/dL Normal 32-36 [facility] Comment on above: Order Comment: 111.2 20250423 Performed By: #### L 501.2300, L500.4050, L501.9060, L100.0100 #### [facility] [address] [place], [address] MCV (RBC) [Entitic vol] 91.7 fL Normal 80-94 [facility] Comment on above: Order Comment: 111.2 20250423 Performed By: #### L 501.2300, L500.4050, L501.9060, L100.0100 #### [facility] [address] [place], [address] Monocytes/100 WBC (Bld) 9.2 % Normal 0-10 [facility] Comment on above: Order Comment: 111.2 20250423 Performed By: #### L 501.2300, L500.4050, L501.9060, L100.0100 #### [facility] [address] [place], [address] Neutrophils/100 WBC (Bld) 60.3 % Normal 47-70 [facility] Comment on above: Order Comment: 111.2 20250423 Performed By: #### L 501.2300, L500.4050, L501.9060, L100.0100 #### [facility] [address] [place], [address] Nucleated RBC (Bld) [#/Vol] 0 10*3/uL Normal 0-5 [facility] Comment on above: Order Comment: 111.2 20250423 Performed By: #### L 501.2300, L500.4050, L501.9060, L100.0100 #### [facility] [address] [place], [address] Platelet mean volume (Bld) [Entitic vol] 9.5 fL Normal 6.2-12.0 [facility] Comment on above: Order Comment: 111.2 20250423 Performed By: #### L 501.2300, L500.4050, L501.9060, L100.0100 #### [facility] [address] [place], [address] Platelets (Bld) [#/Vol] 229 10*3/uL Normal 150-450 [facility] Comment on above: Order Comment: 111.2 20250423 Performed By: #### L 501.2300, L500.4050, L501.9060, L100.0100 #### [facility] [address] [place], [address] RBC (Bld) [#/Vol] 4.44 10*6/uL Low 4.6-6.2 [facility] Comment on above: Order Comment: 111.2 20250423 Performed By: #### L 501.2300, L500.4050, L501.9060, L100.0100 #### [facility] [address] [place], [address] RDW SD 43.2 fl Normal 35.1-43.9 [facility] Comment on above: Order Comment: 111.2 20250423 Performed By: #### L 501.2300, L500.4050, L501.9060, L100.0100 #### [facility] [address] [place], [address] WBC (Bld) [#/Vol] 8.8 10*3/uL Normal 4.4-11.0 [facility] Comment on above: Order Comment: 111.2 20250423 Performed By: #### L 501.2300, L500.4050, L501.9060, L100.0100 #### [facility] [address] [place], [address] Lithiumon 06-22-2024 LI 0.70 mmol/L Normal 0.60-1.20 [facility] Comment on above: Order Comment: 111.2 20250423 Performed By: #### L 501.2300, L500.4050, L501.9060, L100.0100 #### [facility] [address] [place], [address] Protein+Creatinine Ratio,Uri neon 06-22-2024 PROT:CRE RATIO Normal 0-200 [facility] Comment on above: Order Comment: 111.2 20250423 Result Comment: This specimen has been REJECTED due to Laboratory criteria: Quanity Not Sufficient. NEW URINE TO BE RECOLLECTED. WAS IN WRONG CONTAINER 06/23/24527 Geraldine C [place] Performed By: #### L 501.2300, L500.4050, L501.9060, L100.0100 #### [facility] [address] [place], [address] PROTEIN,UR.RAN. Normal <11.9 [facility] Comment on above: Order Comment: 111.2 20250423 Result Comment: This specimen has been REJECTED due to Laboratory criteria: Quanity Not Sufficient. NEW URINE TO BE RECOLLECTED. WAS IN WRONG CONTAINER 06/23/24527 Geraldine C [place] Performed By: #### L 501.2300, L500.4050, L501.9060, L100.0100 #### [facility] [address] [place], [address] UR CREAT Normal NO RANGE EST. [facility] Comment on above: Order Comment: 111.2 20250423 Result Comment: This specimen has been REJECTED due to Laboratory criteria: Quanity Not Sufficient. NEW URINE TO BE RECOLLECTED. WAS IN WRONG CONTAINER 06/23/24527 Geraldine C [place] Performed By: #### L 501.2300, L500.4050, L501.9060, L100.0100 #### [facility] [address] [place], [address] Renal Profileon 06-22-2024 Albumin [Mass/Vol] 3.1 g/dL Low 3.2-5.0 [facility] Comment on above: Order Comment: 111.2 20250423 Performed By: #### L 501.2300, L500.4050, L501.9060, L100.0100 #### [facility] [address] [place], [address] BUN/CRE 8.5 RATIO Low 10-20 [facility] Comment on above: Order Comment: 111.2 20250423 Performed By: #### L 501.2300, L500.4050, L501.9060, L100.0100 #### [facility] [address] [place], [address] CA,Total 9.4 mg/dL Normal 8.5-10.1 [facility] Comment on above: Order Comment: 111.2 20250423 Performed By: #### L 501.2300, L500.4050, L501.9060, L100.0100 #### [facility] [address] [place], [address] Chloride [Moles/Vol] 110 mmol/L High 98-107 [facility] Comment on above: Order Comment: 111.2 20250423 Performed By: #### L 501.2300, L500.4050, L501.9060, L100.0100 #### [facility] [address] [place], [address] CO2 [Moles/Vol] 24.0 mmol/L Normal 21.0-32.0 [facility] Comment on above: Order Comment: 111.2 20250423 Performed By: #### L 501.2300, L500.4050, L501.9060, L100.0100 #### [facility] [address] [place], [address] Creatinine [Mass/Vol] 2.12 mg/dL High 0.70-1.30 [facility] Comment on above: Order Comment: 111.2 20250423 Result Comment: The validity of the calculated GFR GFRAA in patients over 70 years has not been determined. Clinical correlation is essential. Performed By: #### L 501.2300, L500.4050, L501.9060, L100.0100 #### [facility] [address] [place], [address] EST GFR - AA 41 mL/min Low >60 [facility] Comment on above: Order Comment: 111.2 20250423 Result Comment: Afri can Haitian GFR Calc Performed By: #### L 501.2300, L500.4050, L501.9060, L100.0100 #### [facility] [address] [place], [address] GFR/1.73 sq M.predicted among non-blacks MDRD (S/P/Bld) [Vol rate/Area] 34 mL/min/{1.73_m2} Low >60 [facility] Comment on above: Order Comment: 111.2 20250423 Result Comment: Non- GFR Calc Performed By: #### L 501.2300, L500.4050, L501.9060, L100.0100 #### [facility] [address] [place], [address] Glucose [Mass/Vol] 106 mg/dL Normal 74-106 [facility] Comment on above: Order Comment: 111.2 20250423 Result Comment: Fast ing Glucose result from 100 to 125 mg/dL suggests IMPAIRED HOMEOSTASIS per A.D.A. criteria. Performed By: #### L 501.2300, L500.4050, L501.9060, L100.0100 #### [facility] [address] [place], [address] Phosphate [Mass/Vol] 4.2 mg/dL Normal 2.5-4.9 [facility] Comment on above: Order Comment: 111.2 20250423 Performed By: #### L 501.2300, L500.4050, L501.9060, L100.0100 #### [facility] [address] [place], [address] Potassium [Moles/Vol] 4.3 mmol/L Normal 3.5-5.1 [facility] Comment on above: Order Comment: 111.2 20250423 Performed By: #### L 501.2300, L500.4050, L501.9060, L100.0100 #### [facility] [address] [place], [address] Sodium [Moles/Vol] 141 mmol/L Normal 136-145 [facility] Comment on above: Order Comment: 111.2 20250423 Performed By: #### L 501.2300, L500.4050, L501.9060, L100.0100 #### [facility] [address] [place], [address] Urea nitrogen [Mass/Vol] 18 mg/dL Normal 7-18 [facility] Comment on above: Order Comment: 111.2 20250423 Performed By: #### L 501.2300, L500.4050, L501.9060, L100.0100 #### [facility] [address] [place], [address] Jolly 05-21-2024 SELINA Telephone (Abimate.eeATH) -- REGGIE LEÓN ([id number]) 1965 M Date Time Provider Department 05/21/24 DOROTA SMITH During your visit today, we recorded the following information about you: BrayanJanessa storeyda 05/21/2024 9:54 AM Signed No Show Documentation Reggie León no showed for an appointment on [id number] with Dorota Smith MD at [place]. He was scheduled for 919. I called [...] 10 mg by mouth once daily. - Ioinb-4-VMO-EPA-Fish Oil 1,000 mg (120 mg-180 mg) cap Take 1 capsule by mouth once daily. - PALIPERIDONE ORAL Take 6 mg by mouth as directed. Problem List As Of Date 05/21/2024 Noted Resolved Pneumonia, Organism Unspecified [J18.9] 01/29/2008 02/11/2010 Acute Gastritis without Mention of Hemorrhage [*05/28/2008 02/11/2010 Nontraumatic rupture of other tendons of foot a*10/08/2009 07/30/2016 Routine general medical examination at [facility]*10/21/2009 01/29/2013 Class: Chronic Bipolar affective disorder (HCC) [F31.9] 10/21/2009 Tobacco abuse [Z72.0] 10/21/2009 07/10/2018 Porokeratosis [Q82.8] 02/03/2010 Gastritis, chronic [K29.50] 02/11/2010 07/10/2018 Erosive esophagitis [K22.10] 02/11/2010 Achilles bursitis or tendinitis [M76.60] 03/20/2010 07/30/2016 Contusion of unspecified site [T14.8XXA] 03/30/2010 07/30/2016 Enthesopathy of unspecified site [M77.9] 11/25/2010 07/10/2018 Other physical therapy [BDX0008] 11/25/2010 07/10/2018 Low HDL (under 40) [E78.6] [...] not included)... Normal [facility] Absolute lymphocyte countOrd ered By: Alfredo Phipps on 02-03-2024 Lymphocytes Auto (Unsp spec) [#/Vol] 2.12 10*3/uL 0.83-4.51 [facility] Automated lymphocyte count a s percentage of total leukocytesOrdered By: Alfredo Phipps on 02-03-2024 Lymphocytes/100 WBC Auto (Unsp spec) 20.5 % 19-41 [facility] Basophil percentageOrdered B y: Alfredo Phipps on 02-03-2024 Basophil percentage 4.0 mg/dL 2.5-4.9 [facility] Basophils/100 WBC (Bld) 0.9 % 0-1 [facility] Chloride [Moles/Vol] 109 mmol/L 98-107 [facility] Eosinophils/100 WBC (Bld) 3.9 % 0-5 [facility] Glucose [Mass/Vol] 122 mg/dL 74-106 [facility] Comment on above: Fasting Glucose resu lt from 100 to 125 mg/dL suggests IMPAIRED HOMEOSTASIS per A.D.A. criteria. Hemoglobin (Bld) [Mass/Vol] 13.3 g/dL 13.0-16.5 [facility] Monocytes/100 WBC (Bld) 8.8 % 0-10 [facility] Neutrophils (Bld) [#/Vol] 6.8 10*3/uL 2.0-7.7 [facility] Neutrophils/100 WBC (Bld) 65.2 % 47-70 [facility] Potassium [Moles/Vol] 4.1 mmol/L 3.5-5.1 [facility] Sodium [Moles/Vol] 140 mmol/L 136-145 [facility] WBC (Bld) [#/Vol] 10.4 10*3/uL 4.4-11.0 [facility] Determination of erythrocyte mean corpuscular volume (MCV)Ordered By: Alfredo Phipps on 02-03-2024 MCV (RBC) [Entitic vol] 89.0 fL 80-94 [facility] Erythrocyte distribution wid th ratioOrdered By: Alfredo Phipps on 02-03-2024 Erythrocyte distribution width (RBC) [Ratio] 13.6 % 11.6-14.6 [facility] Erythrocyte distribution wid th standard deviationOrdered By: Alfredo Phipps on 02-03-2024 Erythrocyte distribution width (RBC) [Entitic vol] 44.2 fL 35.1-43.9 [facility] Hematocrit Auto (Bld) [Volum e fraction]Ordered By: Alfredo Phipps on 02-03-2024 Hematocrit (Bld) [Volume fraction] 40.4 % 40-54 [facility] Immature granulocytes/100 WB C Auto (Bld)Ordered By: Alfredo Phipps on 02-03-2024 Immature granulocytes/100 WBC (Bld) 0.700 % 0.0-0.9 [facility] Comment on above: IG% - Immature Granu locytes (promyelocytes, myelocytes and metamyelocytes) > 1% indicates that a LEFT SHIFT is Present. Laboratory - Chemistry and C hemistry - challengeOrdered By: Alfredo Phipps on 02-03-2024 CO2 [Moles/Vol] 24.0 mmol/L 21.0-32.0 [facility] Urea nitrogen/Creatinine [Mass ratio] 10.9 mg/mg 10-20 [facility] - Hematology and Cell countsOrdered By: Alfredo Phipps on 02-03-2024 MCH (RBC) [Entitic mass] 29.3 pg 27.0-32.0 [facility] MCHC (RBC) [Mass/Vol] 32.9 g/dL 32- [facility] Nucleated RBC/100 WBC (Bld) [Ratio] 0 % 0-5 [facility] Platelet mean volume (Bld) [Entitic vol] 9.5 fL 6.2-12.0 [facility] Platelets (Bld) [#/Vol] 234 10*3/uL 150-450 [facility] No Panel InformationOrdered By: Alfredo Phipps on 02-03-2024 Estimated GFR (MDRD) Amer 48 mL/min >60 [facility] [facility] Comment on above: GFR Calc Estimated GFR (MDRD) Non-Af Amer 40 mL/min >60 [facility] Comment on above: Non- GFR Calc [place] Level 0.60 mmol/L 0.60-1.20 [facility] RBC Auto (Bld) [#/Vol]Ordere d By: Alfredo Phipps on 02-03-2024 RBC (Bld) [#/Vol] 4.54 10*6/uL 4.6-6.2 [facility] Serum or plasma calcium you urement (mass/volume)Ordered By: Alfredo Phipps on 02-03-2024 Calcium [Mass/Vol] 9.2 mg/dL 8.5-10.1 [facility] Serum or plasma creatinine m easurement (mass/volume)Ordered By: Alfredo Phipps on 02-03-2024 Creatinine [Mass/Vol] 1.84 mg/dL 0.70-1.30 [facility] Comment on above: The validity of the calculated GFR & GFRAA in patients over 70 years has not been determined. Clinical correlation is essential. Serum or plasma urea nitroge n measurement (mass/volume)Ordered By: Alfredo Phipps on 02-03-2024 Urea nitrogen [Mass/Vol] 20 mg/dL 7-18 [facility] Thin prep Papanicolaou smear with manual screeningOrdered By: Alfredo Phipps on 02-03-2024 Thin prep Papanicolaou smear with manual screening 3.0 g/dL 3.2-5.0 [facility] Protein (U) [Mass/Vol] 19.8 mg/dL 0.0-11.8 [facility] Urine creatinine measurement (mass/volume)Ordered By: Alfredo Phipps on 02-03-2024 Creatinine (U) [Mass/Vol] 116.00 mg/dL NO RANGE EST. [facility] Urine protein/creatinine mas s ratioOrdered By: Alfredo Phipps on 02-03-2024 Protein/Creatinine (U) [Mass ratio] 171 mg/g CRE 0-200 [facility] Absolute lymphocyte countOrd ered By: Alfredo Phipps on 01-06-2024 Lymphocytes Auto (Unsp spec) [#/Vol] 2.00 10*3/uL 0.83-4.51 [facility] Automated lymphocyte count a s percentage of total leukocytesOrdered By: Alfredo Phipps on 01-06-2024 Lymphocytes/100 WBC Auto (Unsp spec) 20.9 % 19-41 [facility] Basophil percentageOrdered B y: Alfredo Phipps on 01-06-2024 Basophil percentage 4.2 mg/dL 2.5-4.9 [facility] Basophils/100 WBC (Bld) 0.8 % 0-1 [facility] Chloride [Moles/Vol] 109 mmol/L 98-107 [facility] Eosinophils/100 WBC (Bld) 3.9 % 0-5 [facility] Glucose [Mass/Vol] 113 mg/dL 74-106 [facility] Comment on above: Fasting Glucose resu lt from 100 to 125 mg/dL suggests IMPAIRED HOMEOSTASIS per A.D.A. criteria. Hemoglobin (Bld) [Mass/Vol] 13.7 g/dL 13.0-16.5 [facility] Monocytes/100 WBC (Bld) 8.4 % 0-10 [facility] Neutrophils (Bld) [#/Vol] 6.3 10*3/uL 2.0-7.7 [facility] Neutrophils/100 WBC (Bld) 65.7 % 47-70 [facility] Potassium [Moles/Vol] 4.2 mmol/L 3.5-5.1 [facility] Sodium [Moles/Vol] 143 mmol/L 136-145 [facility] WBC (Bld) [#/Vol] 9.6 10*3/uL 4.4-11.0 [facility] Determination of erythrocyte mean corpuscular volume (MCV)Ordered By: Alfredo Phipps on 01-06-2024 MCV (RBC) [Entitic vol] 90.1 fL 80-94 [facility] Erythrocyte distribution wid th ratioOrdered By: Alfredo Phipps on 01-06-2024 Erythrocyte distribution width (RBC) [Ratio] 13.2 % 11.6-14.6 [facility] Erythrocyte distribution wid th standard deviationOrdered By: Alfredo Phipps on 01-06-2024 Erythrocyte distribution width (RBC) [Entitic vol] 43.2 fL 35.1-43.9 [facility] Hematocrit Auto (Bld) [Volum e fraction]Ordered By: Alfredo Phipps on 01-06-2024 Hematocrit (Bld) [Volume fraction] 41.7 % 40-54 [facility] Immature granulocytes/100 WB C Auto (Bld)Ordered By: Alfredo Phipps on 01-06-2024 Immature granulocytes/100 WBC (Bld) 0.300 % 0.0-0.9 [facility] Comment on above: IG% - Immature Granu locytes (promyelocytes, myelocytes and metamyelocytes) > 1% indicates that a LEFT SHIFT is Present. Laboratory - Chemistry and C hemistry - challengeOrdered By: Alfredo Phipps on 01-06-2024 CO2 [Moles/Vol] 24.0 mmol/L 21.0-32.0 [facility] Urea nitrogen/Creatinine [Mass ratio] 8.9 mg/mg 10-20 [facility] Laboratory - Hematology and Cell countsOrdered By: Alfredo Phipps on 01-06-2024 MCH (RBC) [Entitic mass] 29.6 pg 27.0-32.0 [facility] MCHC (RBC) [Mass/Vol] 32.9 g/dL 32-36 [facility] Nucleated RBC/100 WBC (Bld) [Ratio] 0 % 0-5 [facility] Platelet mean volume (Bld) [Entitic vol] 9.6 fL 6.2-12.0 [facility] Platelets (Bld) [#/Vol] 209 10*3/uL 150-450 [facility] No Panel InformationOrdered By: Alfredo Phipps on 01-06-2024 Estimated GFR (MDRD) Amer 44 mL/min >60 [facility] Comment on above: GFR Calc Estimated GFR (MDRD) Non-Af Amer 36 mL/min >60 [facility] Comment on above: Non- GFR Calc [place] Level 0.60 mmol/L 0.60-1.20 [facility] RBC Auto (Bld) [#/Vol]Ordere d By: Alfredo Phipps on 01-06-2024 RBC (Bld) [#/Vol] 4.63 10*6/uL 4.6-6.2 [facility] Serum or plasma calcium you urement (mass/volume)Ordered By: Alfredo Phipps on 01-06-2024 Calcium [Mass/Vol] 9.3 mg/dL 8.5-10.1 [facility] Serum or plasma creatinine m easurement (mass/volume)Ordered By: Alfredo Phipps on 01-06-2024 Creatinine [Mass/Vol] 2.02 mg/dL 0.70-1.30 [facility] Comment on above: The validity of the calculated GFR & GFRAA in patients over 70 years has not been determined. Clinical correlation is essential. Serum or plasma urea nitroge n measurement (mass/volume)Ordered By: Alfredo Phipps on 01-06-2024 Urea nitrogen [Mass/Vol] 18 mg/dL 7-18 [facility] Thin prep Papanicolaou smear with manual screeningOrdered By: Alfredo Phipps on 01-06-2024 Thin prep Papanicolaou smear with manual screening 3.3 g/dL 3.2-5.0 [facility] Protein (U) [Mass/Vol] 19.0 mg/dL 0.0-11.8 [facility] Urine creatinine measurement (mass/volume)Ordered By: Alfredo Phipps on 01-06-2024 Creatinine (U) [Mass/Vol] 122.00 mg/dL NO RANGE EST. [facility] Urine protein/creatinine mas s ratioOrdered By: Alfredo Phipps on 01-06-2024 Protein/Creatinine (U) [Mass ratio] 156 mg/g CRE 0-200 [facility] CBC W Auto Differential pane l (Bld)on 12-20-2023 Basophils (Bld) [#/Vol] 0.11 10*3/uL High <0.11 k/uL [facility] Basophils/100 WBC (Bld) 1.0 % [facility] Differential cell count method Nom (Bld) Auto [facility] Eosinophils (Bld) [#/Vol] 0.31 10*3/uL <0.46 k/uL [facility] Eosinophils/100 WBC (Bld) 2.8 % [facility] Erythrocyte distribution width (RBC) [Ratio] 12.9 % 11.5 - 15.0 % [facility] Hematocrit (Bld) [Volume fraction] 46.0 % 39.0 - 51.0 % [facility] Hemoglobin (Bld) [Mass/Vol] 15.2 g/dL 13.0 - 17.0 g/dL [facility] Immature granulocytes (Bld) [#/Vol] 0.06 10*3/uL <0.10 k/uL [facility] Immature granulocytes/100 WBC (Bld) 0.5 % [facility] Lymphocytes (Bld) [#/Vol] 1.82 10*3/uL 1.00 - 4.00 k/uL [facility] Lymphocytes/100 WBC (Bld) 16.5 % [facility] MCH (RBC) [Entitic mass] 28.9 pg 26. 0 - 34.0 pg [facility] MCHC (RBC) [Mass/Vol] 33.0 g/dL 30.5 - 36.0 g/dL [facility] MCV (RBC) [Entitic vol] 87.5 fL 80.0 - 100.0 fL [facility] Monocytes (Bld) [#/Vol] 0.88 10*3/uL High <0.87 k/uL [facility] Monocytes/100 [facility] (Bld) 8.0 [facility] [#/Vol] 7.82 10*3/uL High 1.45 - 7.50 k/uL [facility] Neutrophils/100 WBC (Bld) 71.2 % [facility] Nucleated RBC (Bld) [#/Vol] <0.01 k/uL [facility] Nucleated RBC/100 WBC (Bld) [Ratio] 0.0 /100 WBC [facility] Platelet mean volume (Bld) [Entitic vol] 9.4 fL 9.0 - 12.7 fL [facility] Platelets (Bld) [#/Vol] 247 10*3/uL 150 - 400 k/uL [facility] RBC (Bld) [#/Vol] 5.26 10*6/uL 4.20 - 6.00 m/uL [facility] WBC (Bld) [#/Vol] 11.00 10*3/uL 3.70 - 11.00 k/uL [facility] CYSTATIN Con 12-20-2023 Cystatin C [Mass/Vol] 1.87 mg/L High 0.61 - 0.95 mg/L [facility] Cystatin C eGFR 34 mL/min/1.73m Low >=60 mL/min/1.7 3m [facility] Comprehensive metabolic 2000 panelon 12-20-2023 Albumin [Mass/Vol] 4.2 g/dL 3.9 - 4.9 g/dL [facility] ALP [Catalytic activity/Vol] 105 U/L 38 - 113 U/L [facility] ALT [Catalytic activity/Vol] 31 U/L 10 - 54 U/L [facility] Anion gap [Moles/Vol] 15 mmol/L 9 - 18 mmol/L [facility] AST [Catalytic activity/Vol] 19 U/L 14 - 40 U/L [facility] Bilirubin [Mass/Vol] 0.3 mg/dL 0.2 - 1 .3 mg/dL [facility] Calcium [Mass/Vol] 10.2 mg/dL 8.5 - 10. 2 mg/dL [facility] Chloride [Moles/Vol] 103 mmol/L 97 - 10 5 mmol/L [facility] CO2 [Moles/Vol] 24 mmol/L 22 - 30 mmol/L [facility] Creatinine [Mass/Vol] 2.22 mg/dL High 0.73 - 1.22 mg/dL [facility] Estimated Glomerular Filtration Rate 33 mL/min/1.73m Low >=60 mL/min/1.7 3m [facility] Glucose [Mass/Vol] 114 mg/dL High 74 - 99 mg/dL [facility] Potassium [Moles/Vol] 4.2 mmol/L 3.7 - 5.1 mmol/L [facility] Protein [Mass/Vol] 7.0 g/dL 6.3 - 8.0 g/dL [facility] Sodium [Moles/Vol] 142 mmol/L 136 - 144 mmol/L [facility] Urea nitrogen [Mass/Vol] 19 mg/dL 9 - 24 mg/dL [facility] LIPID PANEL, NONFASTINGon Cholesterol [Mass/Vol] 139 mg/dL <200 mg/dL [facility] HDL Cholesterol, Nonfasting 32 mg/dL Low >39 mg/dL [facility] LDL Cholesterol, Nonfasting 51 mg/dL <100 mg/dL [facility] LDL/HDL Ratio, Nonfasting 1.59 mg/dL <2.54 mg/dL [facility] Non HDL Cholesterol, Nonfasting 107 mg/dL <130 mg/dL [facility] Total Chol/HDL Ratio, Nonfasting 4.34 mg/dL <5.10 mg/dL [facility] Triglycerides, Nonfasting 280 mg/dL High <150 mg/dL [facility] VLDL Cholesterol, Nonfasting 56 mg/dL High <30 mg/dL [facility] PHOSPHORUS INORGANICon 12-20 Phosphate [Mass/Vol] 2.1 mg/dL Low 2.7 - 4 .8 mg/dL [facility] PROTEIN CREATININE RATIOon 0 12-20-2023 Protein/Creatinine (U) [Mass ratio] 0.07 mg/mg <0.15 mg/mg [facility] PTH INTACT BLDon 12-20-2023 Parathyrin.intact [Mass/Vol] 121 pg/mL High 15 - 65 pg/mL [facility] Protein/Creatinine (U) [Mass ratio]on 12-20-2023 Creatinine (U) [Mass/Vol] 103.8 mg/dL 20.0 - 300.0 mg/dL [facility] Protein (U) [Mass/Vol] 7 mg/dL 0 - 2 0 mg/dL [facility] URINALYSIS, REFLEX MICROSCOP ICon 12-20-2023 Bilirubin Ql (U) Negative Negative [facility] Clarity (Unsp spec) Clear Clear [facility] Color (U) Light Yellow Yellow [facility] Glucose Test strip (U) [Mass/Vol] Negative Trace, Negative [facility] Hemoglobin Ql (U) Negative Negative, Trace [facility] Ketones Ql (U) Negative Negative, Trace [facility] Leukocyte esterase Test strip Ql (U) Negative Negative, 25 Mary/uL [facility] Nitrite Ql (U) Negative Negative [facility] pH (U) 6.0 [pH] 5.0 - 8.0 [facility] Protein (U) [Mass/Vol] Negative Trace , Negative [facility] Specific gravity (U) [Rel density] 1.010 1.005 - 1.030 [facility] Urobilinogen Ql (U) Normal Normal [facility] Absolute lymphocyte countOrd ered By: Alfredo Phipps on 12-09-2023 Lymphocytes Auto (Unsp spec) [#/Vol] 2.24 10*3/uL 0.83-4.51 [facility] Automated lymphocyte count a s percentage of total leukocytesOrdered By: Alfredo Phipps on 12-09-2023 Lymphocytes/100 WBC Auto (Unsp spec) 23.2 % 19-41 [facility] Basophil percentageOrdered B y: Alfredo Phipps on 12-09-2023 Basophil percentage 3.8 mg/dL 2.5-4.9 [facility] Basophils/100 WBC (Bld) 1.0 % 0-1 [facility] Chloride [Moles/Vol] 110 mmol/L 98-107 [facility] Eosinophils/100 WBC (Bld) 3.9 % 0-5 [facility] Glucose [Mass/Vol] 129 mg/dL 74-106 [facility] Comment on above: Fasting Glucose resu lt greater than or equal to 126 mg/dL suggests DIABETES MELLITUS per A.D.A. criteria. Hemoglobin (Bld) [Mass/Vol] 13.9 g/dL 13.0-16.5 [facility] Monocytes/100 WBC (Bld) 9.3 % 0-10 [facility] Neutrophils (Bld) [#/Vol] 6.0 10*3/uL 2.0-7.7 [facility] Neutrophils/100 WBC (Bld) 62.2 % 47-70 [facility] Potassium [Moles/Vol] 3.5 mmol/L 3.5-5.1 [facility] Sodium [Moles/Vol] 138 mmol/L 136-145 [facility] WBC (Bld) [#/Vol] 9.7 10*3/uL 4.4-11.0 [facility] Determination of erythrocyte mean corpuscular volume (MCV)Ordered By: Alfredo Phipps on 12-09-2023 MCV (RBC) [Entitic vol] 90.2 fL 80-94 [facility] Erythrocyte distribution wid th ratioOrdered By: Alfredo Phipps on 12-09-2023 Erythrocyte distribution width (RBC) [Ratio] 13.1 % 11.6-14.6 [facility] Erythrocyte distribution wid th standard deviationOrdered By: Alfredo Phipps on 12-09-2023 Erythrocyte distribution width (RBC) [Entitic vol] 43.2 fL 35.1-43.9 [facility] Hematocrit Auto (Bld) [Volum e fraction]Ordered By: Alfredo Phipps on 12-09-2023 Hematocrit (Bld) [Volume fraction] 43.2 % 40-54 [facility] Immature granulocytes/100 WB C Auto (Bld)Ordered By: Alfredo Phipps on 12-09-2023 Immature granulocytes/100 WBC (Bld) 0.400 % 0.0-0.9 [facility] Comment on above: IG% - Immature Granu locytes (promyelocytes, myelocytes and metamyelocytes) > 1% indicates that a LEFT SHIFT is Present. Laboratory - Chemistry and C hemistry - challengeOrdered By: Alfredo Phipps on 12-09-2023 CO2 [Moles/Vol] 21.0 mmol/L 21.0-32.0 [facility] Urea nitrogen/Creatinine [Mass ratio] 7.4 mg/mg 10-20 [facility] Laboratory - Hematology and Cell countsOrdered By: Alfredo Phipps on 12-09-2023 MCH (RBC) [Entitic mass] 29.0 pg 27.0-32.0 [facility] MCHC (RBC) [Mass/Vol] 32.2 g/dL 32-36 [facility] Nucleated RBC/100 WBC (Bld) [Ratio] 0 % 0-5 [facility] Platelets (Bld) [#/Vol] 235 10*3/uL 150-450 [facility] No Panel InformationOrdered By: Alfredo Phipps on 12-09-2023 Estimated GFR (MDRD) Amer 44 mL/min >60 [facility] Comment on above: GFR Calc Estimated GFR (MDRD) Non-Af Amer 36 mL/min >60 [facility] Comment on above: Non- GFR Calc [place] Level 0.40 mmol/L 0.60-1.20 [facility] Platelet mean volume Naresh-Ec ker (Bld) [Entitic vol]Ordered By: Alfredo Phipps on 12-09-2023 Platelet mean volume (Bld) [Entitic vol] 9.5 fL 6.2-12.0 [facility] RBC Auto (Bld) [#/Vol]Ordere d By: Alfredo Phipps on 12-09-2023 RBC (Bld) [#/Vol] 4.79 10*6/uL 4.6-6.2 [facility] Serum or plasma calcium you urement (mass/volume)Ordered By: Alfredo Phipps on 12-09-2023 Calcium [Mass/Vol] 9.3 mg/dL 8.5-10.1 [facility] Serum or plasma creatinine m easurement (mass/volume)Ordered By: Alfredo Phipps on 12-09-2023 Creatinine [Mass/Vol] 2.02 mg/dL 0.70-1.30 [facility] Comment on above: The validity of the calculated GFR & GFRAA in patients over 70 years has not been determined. Clinical correlation is essential. Serum or plasma urea nitroge n measurement (mass/volume)Ordered By: Alfredo Phipps on 12-09-2023 Urea nitrogen [Mass/Vol] 15 mg/dL 7-18 [facility] Thin prep Papanicolaou smear with manual screeningOrdered By: Alfredo Phipps on 12-09-2023 Thin prep Papanicolaou smear with manual screening 3.2 g/dL 3.2-5.0 [facility] Urine creatinine measurement (mass/volume)Ordered By: Adam Jasmine on 11-16-2023 Creatinine (U) [Mass/Vol] 178.00 mg/dL NO RANGE EST. [facility] Urine protein measurement (m ass/volume)Ordered By: Adam Ferraro on 11-16-2023 Protein (U) [Mass/Vol] 28.7 mg/dL 0.0-11.8 [facility] Urine protein/creatinine mas s ratioOrdered By: Adam Ferraro on 11-16-2023 Protein/Creatinine (U) [Mass ratio] 161 mg/g CRE 0-200 [facility] Absolute lymphocyte countOrd ered By: Adam Ferraro on 11-11-2023 Lymphocytes Auto (Unsp spec) [#/Vol] 3.10 10*3/uL 0.83-4.51 [facility] Basophil percentageOrdered B y: Adam Ferraro on 11-11-2023 Basophil percentage 3.6 mg/dL 2.5-4.9 [facility] Basophils/100 WBC (Bld) 0.8 % 0-1 [facility] Chloride [Moles/Vol] 108 mmol/L 98-107 [facility] Eosinophils/100 WBC (Bld) 3.4 % 0-5 [facility] Glucose [Mass/Vol] 120 mg/dL 74-106 [facility] Comment on above: Fasting Glucose resu lt from 100 to 125 mg/dL suggests IMPAIRED HOMEOSTASIS per A.D.A. criteria. Neutrophils (Bld) [#/Vol] 7.1 10*3/uL 2.0-7.7 [facility] Neutrophils/100 WBC (Bld) 61.0 % 47-70 [facility] Potassium [Moles/Vol] 3.6 mmol/L 3.5-5.1 [facility] Sodium [Moles/Vol] 140 mmol/L 136-145 [facility] WBC (Bld) [#/Vol] 11.6 10*3/uL 4.4-11.0 [facility] Blood erythrocytes count (nu mber/volume)Ordered By: Adam Ferraro on 11-11-2023 RBC (Bld) [#/Vol] 4.98 10*6/uL 4.6-6.2 [facility] Blood hemoglobin measurement (mass/volume)Ordered By: Adam Ferraro on 11-11-2023 Hemoglobin (Bld) [Mass/Vol] 14.4 g/dL 13.0-16.5 [facility] Blood lymphocytes/100 leukoc ytesOrdered By: Adam Ferraro on 11-11-2023 Lymphocytes/100 WBC (Bld) 26.7 % 19-41 [facility] Blood monocytes/100 leukocyt esOrdered By: Adam Ferraro on 11-11-2023 Monocytes/100 WBC (Bld) 7.3 % 0-10 [facility] Blood platelet mean volumeOr dered By: Adam Ferraro on 11-11-2023 Platelet mean volume (Bld) [Entitic vol] 9.4 fL 6.2-12.0 [facility] Determination of erythrocyte mean corpuscular volume (MCV)Ordered By: Adam Ferraro on 11-11-2023 MCV (RBC) [Entitic vol] 89.8 fL 80-94 [facility] Hematocrit Auto (Bld) [Volum e fraction]Ordered By: Adam Ferraro on 11-11-2023 Hematocrit (Bld) [Volume fraction] 44.7 % 40-54 [facility] Laboratory - Chemistry and C hemistry - challengeOrdered By: Adam Ferraro on 11-11-2023 CO2 [Moles/Vol] 24.0 mmol/L 21.0-32.0 [facility] Urea nitrogen/Creatinine [Mass ratio] 7.8 mg/mg 10-20 [facility] Laboratory - Hematology and Cell countsOrdered By: Adam Ferraro on 11-11-2023 Erythrocyte distribution width (RBC) [Entitic vol] 42.7 fL 35.1-43.9 [facility] Erythrocyte distribution width (RBC) [Ratio] 13.1 % 11.6-14.6 [facility] Immature granulocytes/100 WBC (Bld) 0.800 % 0.0-0.9 [facility] Comment on above: IG% - Immature Granu locytes (promyelocytes, myelocytes and metamyelocytes) > 1% indicates that a LEFT SHIFT is Present. MCH (RBC) [Entitic mass] 28.9 pg 27.0-32.0 [facility] Nucleated RBC/100 [facility] (Bld) [[facility]] 0 [facility] [Mass/Vol]Or dered By: Adam Ferraro on 11-11-2023 MCHC (RBC) [Mass/Vol] 32.2 g/dL 32-36 [facility] No Panel InformationOrdered By: Adam Ferraro on 11-11-2023 Estimated GFR (MDRD) Amer 37 mL/min >60 [facility] Comment on above: GFR Calc Estimated GFR (MDRD) Non-Af Amer 31 mL/min >60 [facility] Comment on above: Non- GFR Calc [place] Level 0.60 mmol/L 0.60-1.20 [facility] Platelets bldOrdered By: Benoit Ferraro on 11-11-2023 Platelets (Bld) [#/Vol] 252 10*3/uL 150-450 [facility] Serum or plasma albumin you urement (mass/volume)Ordered By: Adam Ferraro on 11-11-2023 Albumin [Mass/Vol] 3.1 g/dL 3.2-5.0 [facility] Serum or plasma calcium you urement (mass/volume)Ordered By: Adam Ferraro on 11-11-2023 Calcium [Mass/Vol] 8.9 mg/dL 8.5-10.1 [facility] Serum or plasma creatinine m easurement (mass/volume)Ordered By: Adam Ferraro on 11-11-2023 Creatinine [Mass/Vol] 2.31 mg/dL 0.70-1.30 [facility] Comment on above: The validity of the calculated GFR & GFRAA in patients over 70 years has not been determined. Clinical correlation is essential. Serum or plasma urea nitroge n measurement (mass/volume)Ordered By: Adam Ferraro on 11-11-2023 Urea nitrogen [Mass/Vol] 18 mg/dL 7-18 [facility] Serum or plasma uric acid me asurement (mass/volume)Ordered By: Adam Ferraro on 10-27-2023 Urate [Mass/Vol] 8.1 mg/dL 3.5-7.2 [facility] Comment on above: The drugs N-Acetylcy steine and Metamizole may falsely depress this assay. Absolute lymphocyte countOrd ered By: Alfredo Phipps on 10-14-2023 Lymphocytes Auto (Unsp spec) [#/Vol] 1.52 10*3/uL 0.83-4.51 [facility] Basophil percentageOrdered B y: Alfredo Phipps on 10-14-2023 Basophil percentage 3.2 mg/dL 2.5-4.9 [facility] Basophils/100 WBC (Bld) 1.2 % 0-1 [facility] Chloride [Moles/Vol] 110 mmol/L 98-107 [facility] Eosinophils/100 WBC (Bld) 5.0 % 0-5 [facility] Glucose [Mass/Vol] 151 mg/dL 74-106 [facility] Comment on above: Fasting Glucose resu lt greater than or equal to 126 mg/dL suggests DIABETES MELLITUS per A.D.A. criteria. Neutrophils (Bld) [#/Vol] 6.6 10*3/uL 2.0-7.7 [facility] Neutrophils/100 WBC (Bld) 68.8 % 47-70 [facility] Potassium [Moles/Vol] 3.8 mmol/L 3.5-5.1 [facility] Sodium [Moles/Vol] 141 mmol/L 136-145 [facility] WBC (Bld) [#/Vol] 9.5 10*3/uL 4.4-11.0 [facility] Blood erythrocytes count (nu mber/volume)Ordered By: Alfredo Phipps on 10-14-2023 RBC (Bld) [#/Vol] 4.51 10*6/uL 4.6-6.2 [facility] Blood hemoglobin measurement (mass/volume)Ordered By: Alfredo Phipps on 10-14-2023 Hemoglobin (Bld) [Mass/Vol] 13.0 g/dL 13.0-16.5 [facility] Blood lymphocytes/100 leukoc ytesOrdered By: Alfredo Phipps on 10-14-2023 Lymphocytes/100 WBC (Bld) 15.9 % 19-41 [facility] Blood monocytes/100 leukocyt esOrdered By: Alfredo Phipps on 10-14-2023 Monocytes/100 WBC (Bld) 8.3 % 0-10 [facility] Blood platelet mean volumeOr dered By: Alfredo Phipps on 10-14-2023 Platelet mean volume (Bld) [Entitic vol] 9.7 fL 6.2-12.0 [facility] Determination of erythrocyte mean corpuscular volume (MCV)Ordered By: Alfredo Phipps on 10-14-2023 MCV (RBC) [Entitic vol] 90.2 fL 80-94 [facility] Hematocrit Auto (Bld) [Volum e fraction]Ordered By: Alfredo Phipps on 10-14-2023 Hematocrit (Bld) [Volume fraction] 40.7 % 40-54 [facility] Laboratory - Chemistry and C hemistry - challengeOrdered By: Alfredo Phipps on 10-14-2023 CO2 [Moles/Vol] 26.0 mmol/L 21.0-32.0 [facility] Urea nitrogen/Creatinine [Mass ratio] 7.5 mg/mg 10-20 [facility] Laboratory - Hematology and Cell countsOrdered By: Alfredo Phipps on 10-14-2023 Erythrocyte distribution width (RBC) [Entitic vol] 43.6 fL 35.1-43.9 [facility] Erythrocyte distribution width (RBC) [Ratio] 13.2 % 11.6-14.6 [facility] Immature granulocytes/100 WBC (Bld) 0.800 % 0.0-0.9 [facility] Comment on above: IG% - Immature Granu locytes (promyelocytes, myelocytes and metamyelocytes) > 1% indicates that a LEFT SHIFT is Present. MCH (RBC) [Entitic mass] 28.8 pg 27.0-32.0 [facility] Nucleated RBC/100 WBC (Bld) [Ratio] 0 % 0-5 [facility] MCHC Auto (RBC) [Mass/Vol]Or dered By: Alfredo Phipps on 10-14-2023 MCHC (RBC) [Mass/Vol] 31.9 g/dL 32-36 [facility] No Panel InformationOrdered By: Alfredo Phipps on 10-14-2023 Estimated GFR (MDRD) Amer 41 mL/min >60 [facility] Comment on above: GFR Calc Estimated GFR (MDRD) Non-Af Amer 34 mL/min >60 [facility] Comment on above: Non- GFR Calc [place] Level 0.50 mmol/L 0.60-1.20 [facility] Platelets bldOrdered By: Jennifer Phipps on 10-14-2023 Platelets (Bld) [#/Vol] 224 10*3/uL 150-450 [facility] Serum or plasma albumin you urement (mass/volume)Ordered By: Alfredo Phipps on 10-14-2023 Albumin [Mass/Vol] 2.9 g/dL 3.2-5.0 [facility] Serum or plasma calcium you urement (mass/volume)Ordered By: Alfredo Phipps on 10-14-2023 Calcium [Mass/Vol] 8.5 mg/dL 8.5-10.1 [facility] Serum or plasma creatinine m easurement (mass/volume)Ordered By: Alfredo Phipps on 10-14-2023 Creatinine [Mass/Vol] 2.12 mg/dL 0.70-1.30 [facility] Comment on above: The validity of the calculated GFR & GFRAA in patients over 70 years has not been determined. Clinical correlation is essential. Serum or plasma urea nitroge n measurement (mass/volume)Ordered By: Alfredo Phipps on 10-14-2023 Urea nitrogen [Mass/Vol] 16 mg/dL 7-18 [facility] Urine creatinine measurement (mass/volume)Ordered By: Alfredo Phipps on 10-14-2023 Creatinine (U) [Mass/Vol] 195.00 mg/dL NO RANGE EST. [facility] Urine protein measurement (m ass/volume)Ordered By: Alfredo Phipps on 10-14-2023 Protein (U) [Mass/Vol] 23.4 mg/dL 0.0-11.8 [facility] Urine protein/creatinine mas s ratioOrdered By: Alfredo Phipps on 10-14-2023 Protein/Creatinine (U) [Mass ratio] 120 mg/g CRE 0-200 [facility] Serum or plasma uric acid me asurement (mass/volume)Ordered By: Adam Ferraro on 09-27-2023 Urate [Mass/Vol] 7.3 mg/dL 3.5-7.2 [facility] Comment on above: The drugs N-Acetylcy steine and Metamizole may falsely depress this assay. Absolute lymphocyte countOrd ered By: Alfredo Phipps on 09-16-2023 Lymphocytes Auto (Unsp spec) [#/Vol] 1.78 10*3/uL 0.83-4.51 [facility] Basophil percentageOrdered B y: Alfredo Phipps on 09-16-2023 Basophil percentage 4.3 mg/dL 2.5-4.9 [facility] Basophils/100 WBC (Bld) 1.0 % 0-1 [facility] Chloride [Moles/Vol] 109 mmol/L 98-107 [facility] Eosinophils/100 WBC (Bld) 4.4 % 0-5 [facility] Glucose [Mass/Vol] 143 mg/dL 74-106 [facility] Comment on above: Fasting Glucose resu lt greater than or equal to 126 mg/dL suggests DIABETES MELLITUS per A.D.A. criteria. Neutrophils (Bld) [#/Vol] 6.3 10*3/uL 2.0-7.7 [facility] Neutrophils/100 WBC (Bld) 67.0 % 47-70 [facility] Potassium [Moles/Vol] 4.1 mmol/L 3.5-5.1 [facility] Sodium [Moles/Vol] 139 mmol/L 136-145 [facility] WBC (Bld) [#/Vol] 9.4 10*3/uL 4.4-11.0 [facility] Blood erythrocytes count (nu mber/volume)Ordered By: Alfredo Phipps on 09-16-2023 RBC (Bld) [#/Vol] 4.63 10*6/uL 4.6-6.2 [facility] Blood hemoglobin measurement (mass/volume)Ordered By: Alfredo Phipps on 09-16-2023 Hemoglobin (Bld) [Mass/Vol] 13.4 g/dL 13.0-16.5 [facility] Blood lymphocytes/100 leukoc ytesOrdered By: Alfredo Phipps on 09-16-2023 Lymphocytes/100 WBC (Bld) 19.0 % 19-41 [facility] Blood monocytes/100 leukocyt esOrdered By: Alfredo Phipps on 09-16-2023 Monocytes/100 WBC (Bld) 8.3 % 0-10 [facility] Blood platelet mean volumeOr dered By: Alfredo Phipps on 09-16-2023 Platelet mean volume (Bld) [Entitic vol] 9.6 fL 6.2-12.0 [facility] Determination of erythrocyte mean corpuscular volume (MCV)Ordered By: Alfredo Phipps on 09-16-2023 MCV (RBC) [Entitic vol] 90.5 fL 80-94 [facility] Hematocrit Auto (Bld) [Volum e fraction]Ordered By: Alfredo Phipps on 09-16-2023 Hematocrit (Bld) [Volume fraction] 41.9 % 40-54 [facility] Laboratory - Chemistry and C hemistry - challengeOrdered By: Alfredo Phipps on 09-16-2023 CO2 [Moles/Vol] 23.0 mmol/L 21.0-32.0 [facility] Urea nitrogen/Creatinine [Mass ratio] 11.6 mg/mg 10-20 [facility] Laboratory - Hematology and Cell countsOrdered By: Alfredo Phipps on 09-16-2023 Erythrocyte distribution width (RBC) [Entitic vol] 46.1 fL 35.1-43.9 [facility] Erythrocyte distribution width (RBC) [Ratio] 13.9 % 11.6-14.6 [facility] Immature granulocytes/100 WBC (Bld) 0.300 % 0.0-0.9 [facility] Comment on above: IG% - Immature Granu locytes (promyelocytes, myelocytes and metamyelocytes) > 1% indicates that a LEFT SHIFT is Present. MCH (RBC) [Entitic mass] 28.9 pg 27.0-32.0 [facility] Nucleated RBC/100 WBC (Bld) [Ratio] 0 % 0-5 [facility] MCHC Auto (RBC) [Mass/Vol]Or dered By: Alfredo Phipps on 09-16-2023 MCHC (RBC) [Mass/Vol] 32.0 g/dL 32-36 [facility] No Panel InformationOrdered By: Alfredo Phipps on 09-16-2023 Estimated GFR (MDRD) Amer 45 mL/min >60 [facility] Comment on above: GFR Calc Estimated GFR (MDRD) Non-Af Amer 37 mL/min >60 [facility] Comment on above: Non- GFR Calc [place] Level 0.60 mmol/L 0.60-1.20 [facility] Platelets bldOrdered By: Jennifer Phipps on 09-16-2023 Platelets (Bld) [#/Vol] 212 10*3/uL 150-450 [facility] Serum or plasma albumin you urement (mass/volume)Ordered By: Alfredo Phipps on 09-16-2023 Albumin [Mass/Vol] 2.9 g/dL 3.2-5.0 [facility] Serum or plasma calcium you urement (mass/volume)Ordered By: Alfredo Phipps on 09-16-2023 Calcium [Mass/Vol] 9.0 mg/dL 8.5-10.1 [facility] Serum or plasma creatinine m easurement (mass/volume)Ordered By: Alfredo Phipps on 09-16-2023 Creatinine [Mass/Vol] 1.98 mg/dL 0.70-1.30 [facility] Comment on above: The validity of the calculated GFR & GFRAA in patients over 70 years has not been determined. Clinical correlation is essential. Serum or plasma urea nitroge n measurement (mass/volume)Ordered By: Alfredo Phipps on 09-16-2023 Urea nitrogen [Mass/Vol] 23 mg/dL 7-18 [facility] Urine creatinine measurement (mass/volume)Ordered By: Alfredo Phipps on 09-16-2023 Creatinine (U) [Mass/Vol] 44.20 mg/dL NO RANGE EST. [facility] Urine protein measurement (m ass/volume)Ordered By: Alfredo Phipps on 09-16-2023 Protein (U) [Mass/Vol] mg/dL 0.0-11.8 [facility] Urine protein/creatinine mas s ratioOrdered By: Alfredo Phipps on 09-16-2023 Protein/Creatinine (U) [Mass ratio] 131 mg/g CRE 0-200 [facility] Urine creatinine measurement (mass/volume)Ordered By: Adam Ferraro on 08-22-2023 Creatinine (U) [Mass/Vol] 105.00 mg/dL NO RANGE EST. [facility] Urine protein measurement (m ass/volume)Ordered By: Adam Ferraro on 08-22-2023 Protein (U) [Mass/Vol] 19.3 mg/dL 0.0-11.8 [facility] Urine protein/creatinine mas s ratioOrdered By: Adam Ferraro on 08-22-2023 Protein/Creatinine (U) [Mass ratio] 184 mg/g CRE 0-200 [facility] Absolute lymphocyte countOrd ered By: Adam Ferraro on 08-19-2023 Lymphocytes Auto (Unsp spec) [#/Vol] 2.02 10*3/uL 0.83-4.51 [facility] Basophil percentageOrdered B y: Adam Ferraro on 08-19-2023 Basophil percentage 4.0 mg/dL 2.5-4.9 [facility] Basophils/100 WBC (Bld) 0.7 % 0-1 [facility] Chloride [Moles/Vol] 108 mmol/L 98-107 [facility] Eosinophils/100 WBC (Bld) 4.4 % 0-5 [facility] Glucose [Mass/Vol] 161 mg/dL 74-106 [facility] Comment on above: Fasting Glucose resu lt greater than or equal to 126 mg/dL suggests DIABETES MELLITUS per A.D.A. criteria. Neutrophils (Bld) [#/Vol] 7.4 10*3/uL 2.0-7.7 [facility] Neutrophils/100 WBC (Bld) 66.8 % 47-70 [facility] Potassium [Moles/Vol] 3.9 mmol/L 3.5-5.1 [facility] Sodium [Moles/Vol] 140 mmol/L 136-145 [facility] WBC (Bld) [#/Vol] 11.1 10*3/uL 4.4-11.0 [facility] Blood erythrocytes count (nu mber/volume)Ordered By: Adam Ferraro on 08-19-2023 RBC (Bld) [#/Vol] 4.67 10*6/uL 4.6-6.2 [facility] Blood hemoglobin measurement (mass/volume)Ordered By: Adam Ferraro on 08-19-2023 Hemoglobin (Bld) [Mass/Vol] 13.5 g/dL 13.0-16.5 [facility] Blood lymphocytes/100 leukoc ytesOrdered By: Adam Ferraro on 08-19-2023 Lymphocytes/100 WBC (Bld) 18.3 % 19-41 [facility] Blood monocytes/100 leukocyt esOrdered By: Adam Ferraro on 08-19-2023 Monocytes/100 WBC (Bld) 9.1 % 0-10 [facility] Blood platelet mean volumeOr dered By: Adam Ferraro on 08-19-2023 Platelet mean volume (Bld) [Entitic vol] 9.4 fL 6.2-12.0 [facility] Determination of erythrocyte mean corpuscular volume (MCV)Ordered By: Adam Ferraro on 08-19-2023 MCV (RBC) [Entitic vol] 90.1 fL 80-94 [facility] Hematocrit Auto (Bld) [Volum e fraction]Ordered By: Adam Ferraro on 08-19-2023 Hematocrit (Bld) [Volume fraction] 42.1 % 40-54 [facility] Laboratory - Chemistry and C hemistry - challengeOrdered By: Adam Ferraro on 08-19-2023 CO2 [Moles/Vol] 26.0 mmol/L 21.0-32.0 [facility] Urea nitrogen/Creatinine [Mass ratio] 10.9 mg/mg 10-20 [facility] Laboratory - Hematology and Cell countsOrdered By: Adam Ferraro on 08-19-2023 Erythrocyte distribution width (RBC) [Entitic vol] 45.8 fL 35.1-43.9 [facility] Erythrocyte distribution width (RBC) [Ratio] 13.8 % 11.6-14.6 [facility] Immature granulocytes/100 WBC (Bld) 0.700 % 0.0-0.9 [facility] Comment on above: IG% - Immature Granu locytes (promyelocytes, myelocytes and metamyelocytes) > 1% indicates that a LEFT SHIFT is Present. MCH (RBC) [Entitic mass] 28.9 pg 27.0-32.0 [facility] Nucleated RBC/100 WBC (Bld) [Ratio] 0 % 0-5 [facility] MCHC Auto (RBC) [Mass/Vol]Or dered By: Adam Ferraro on 08-19-2023 MCHC (RBC) [Mass/Vol] 32.1 g/dL 32-36 [facility] No Panel InformationOrdered By: Adam Ferraro on 08-19-2023 Estimated GFR (MDRD) Amer 44 mL/min >60 [facility] Comment on above: GFR Calc Estimated GFR (MDRD) Non-Af Amer 36 mL/min >60 [facility] Comment on above: Non- GFR Calc [place] Level 0.50 mmol/L 0.60-1.20 [facility] Platelets bldOrdered By: Benoit Ferraro on 08-19-2023 Platelets (Bld) [#/Vol] 218 10*3/uL 150-450 [facility] Serum or plasma albumin you urement (mass/volume)Ordered By: Adam Ferraro on 08-19-2023 Albumin [Mass/Vol] 2.9 g/dL 3.2-5.0 [facility] Serum or plasma calcium you urement (mass/volume)Ordered By: Adam Ferraro on 08-19-2023 Calcium [Mass/Vol] 9.0 mg/dL 8.5-10.1 [facility] Serum or plasma creatinine m easurement (mass/volume)Ordered By: Adam Ferraro on 08-19-2023 Creatinine [Mass/Vol] 2.01 mg/dL 0.70-1.30 [facility] Comment on above: The validity of the calculated GFR & GFRAA in patients over 70 years has not been determined. Clinical correlation is essential. Serum or plasma urea nitroge n measurement (mass/volume)Ordered By: Adam Ferraro on 08-19-2023 Urea nitrogen [Mass/Vol] 22 mg/dL 7-18 [facility] Whole blood hemoglobin A1c/t otal hemoglobin ratio (mass fraction)Ordered By: Adam Ferraro on 08-19-2023 HbA1c (Bld) [Mass fraction] 7.2 % 3.8-5.6 [facility] Comment on above: Normal < 5.7 % Predi abetic 5.7 - 6.4 % Diabetic >or= 6.5 % Please note range changes. Basophil percentageOrdered B y: Adam Ferraro on 07-28-2023 Cholesterol [Mass/Vol] 124 mg/dL <200 [facility] Comment on above: <200 mg/dL Desirable 200-240 mg/dL Borderline >240 mg/dL High Risk Triglyceride [Mass/Vol] 234 mg/dL <199 [facility] Comment on above: The drugs N-Acetylcy steine and Metamizole may falsely depress this assay.Serum Triglycerides Reference Interval Normal <150 mg/dL Borderline high 150 - 199 mg/dL High 200 - 499 mg/dL Very High > or = 500 mg/dL Serum or plasma cholesterol in HDL measurement (mass/volume)Ordered By: Adam Ferraro on 07-28-2023 Cholesterol in HDL [Mass/Vol] 36 mg/dL >40 [facility] Comment on above: The drugs N-Acetylcy steine and Metamizole may falsely depress this assay. Reference Range HDL <40 mg/dL Low HDL Cholesterol HDL >or= 60 mg/dL High HDL Cholesterol Serum or plasma cholesterol in VLDL measurement (mass/volume)Ordered By: Adam Ferraro on 07-28-2023 Cholesterol in VLDL [Mass/Vol] 47 mg/dL 5-40 [facility] Serum or plasma low density lipoprotein (LDL) cholesterol measurement (mass/volume)Ordered By: Adam Ferraro on 07-28-2023 Cholesterol in LDL [Mass/Vol] 41 mg/dL 0-130 [facility] Serum or plasma uric acid me asurement (mass/volume)Ordered By: Adam Ferraro on 07-28-2023 Urate [Mass/Vol] 6.6 mg/dL 3.5-7.2 [facility] Comment on above: The drugs N-Acetylcy steine and Metamizole may falsely depress this assay. Urine creatinine measurement (mass/volume)Ordered By: Adam Ferraro on 07-24-2023 Creatinine (U) [Mass/Vol] 113.00 mg/dL NO RANGE EST. [facility] Urine protein measurement (m ass/volume)Ordered By: Adam Ferraro on 07-24-2023 Protein (U) [Mass/Vol] 15.1 mg/dL 0.0-11.8 [facility] Urine protein/creatinine mas s ratioOrdered By: Adam Ferraro on 07-24-2023 Protein/Creatinine (U) [Mass ratio] 134 mg/g CRE 0-200 [facility] Absolute lymphocyte countOrd ered By: Alfredo Phipps on 07-22-2023 Lymphocytes Auto (Unsp spec) [#/Vol] 1.60 10*3/uL 0.83-4.51 [facility] Basophil percentageOrdered B y: Alfredo Phipps on 07-22-2023 Basophil percentage 4.2 mg/dL 2.5-4.9 [facility] Basophils/100 WBC (Bld) 1.1 % 0-1 [facility] Chloride [Moles/Vol] 108 mmol/L 98-107 [facility] Eosinophils/100 WBC (Bld) 2.7 % 0-5 [facility] Glucose [Mass/Vol] 138 mg/dL 74-106 [facility] Comment on above: Fasting Glucose resu lt greater than or equal to 126 mg/dL suggests DIABETES MELLITUS per A.D.A. criteria. Neutrophils (Bld) [#/Vol] 6.9 10*3/uL 2.0-7.7 [facility] Neutrophils/100 WBC (Bld) 69.3 % 47-70 [facility] Potassium [Moles/Vol] 3.8 mmol/L 3.5-5.1 [facility] Sodium [Moles/Vol] 135 mmol/L 136-145 [facility] WBC (Bld) [#/Vol] 9.9 10*3/uL 4.4-11.0 [facility] Blood erythrocytes count (nu mber/volume)Ordered By: Alfredo Phipps on 07-22-2023 RBC (Bld) [#/Vol] 4.79 10*6/uL 4.6-6.2 [facility] Blood hemoglobin measurement (mass/volume)Ordered By: Alfredo Phipps on 07-22-2023 Hemoglobin (Bld) [Mass/Vol] 13.6 g/dL 13.0-16.5 [facility] Blood lymphocytes/100 leukoc ytesOrdered By: Alfredo Phipps on 07-22-2023 Lymphocytes/100 WBC (Bld) 16.1 % 19-41 [facility] Blood monocytes/100 leukocyt esOrdered By: Alfredo Phipps on 07-22-2023 Monocytes/100 WBC (Bld) 10.2 % 0-10 [facility] Blood platelet mean volumeOr dered By: Alfredo Phpips on 07-22-2023 Platelet mean volume (Bld) [Entitic vol] 10.8 fL 6.2-12.0 [facility] Determination of erythrocyte mean corpuscular volume (MCV)Ordered By: Alfredo Phipps on 07-22-2023 MCV (RBC) [Entitic vol] 98.1 fL 80-94 [facility] Hematocrit Auto (Bld) [Volum e fraction]Ordered By: Alfredo Phipps on 07-22-2023 Hematocrit (Bld) [Volume fraction] 47.0 % 40-54 [facility] Laboratory - Chemistry and C hemistry - challengeOrdered By: Alfredo Phipps on 07-22-2023 CO2 [Moles/Vol] 19.0 mmol/L 21.0-32.0 [facility] Urea nitrogen/Creatinine [Mass ratio] 10.7 mg/mg 10-20 [facility] - Hematology and Cell countsOrdered By: Alfredo Phipps on 07-22-2023 Erythrocyte distribution width (RBC) [Entitic vol] 58.0 fL 35.1-43.9 [facility] Erythrocyte distribution width (RBC) [Ratio] 16.4 % 11.6-14.6 [facility] Immature granulocytes/100 WBC (Bld) 0.600 % 0.0-0.9 [facility] Comment on above: IG% - Immature Granu locytes (promyelocytes, myelocytes and metamyelocytes) > 1% indicates that a LEFT SHIFT is Present. MCH (RBC) [Entitic mass] 28.4 pg 27.0-32.0 [facility] Nucleated RBC/100 WBC (Bld) [Ratio] 0 % 0-5 [facility] MCHC Auto (RBC) [Mass/Vol]Or dered By: Alfredo Phipps on 07-22-2023 MCHC (RBC) [Mass/Vol] 28.9 g/dL 32-36 [facility] No Panel InformationOrdered By: Alfredo Phipps on 07-22-2023 Estimated GFR (MDRD) Amer 45 mL/min >60 [facility] Comment on above: GFR Calc Estimated GFR (MDRD) Non-Af Amer 37 mL/min >60 [facility] Comment on above: Non- GFR Calc [place] Level 0.60 mmol/L 0.60-1.20 [facility] Platelets bldOrdered By: Pet er Raynaros on 07-22-2023 Platelets (Bld) [#/Vol] 209 10*3/uL 150-450 [facility] Serum or plasma albumin you urement (mass/volume)Ordered By: Alfredo Phipps on 07-22-2023 Albumin [Mass/Vol] 2.6 g/dL 3.2-5.0 [facility] Serum or plasma calcium you urement (mass/volume)Ordered By: Alfredo Phipps on 07-22-2023 Calcium [Mass/Vol] 9.1 mg/dL 8.5-10.1 [facility] Serum or plasma creatinine m easurement (mass/volume)Ordered By: Alfredo Phipps on 07-22-2023 Creatinine [Mass/Vol] 1.97 mg/dL 0.70-1.30 [facility] Comment on above: The validity of the calculated GFR & GFRAA in patients over 70 years has not been determined. Clinical correlation is essential. Serum or plasma urea nitroge n measurement (mass/volume)Ordered By: Alfredo Phipps on 07-22-2023 Urea nitrogen [Mass/Vol] 21 mg/dL 7-18 [facility] Absolute lymphocyte countOrd ered By: Alfredo Phipps on 06-24-2023 Lymphocytes Auto (Unsp spec) [#/Vol] 2.04 10*3/uL 0.83-4.51 [facility] Basophil percentageOrdered B y: Alfredo Phipps on 06-24-2023 Basophil percentage 4.4 mg/dL 2.5-4.9 [facility] Basophils/100 WBC (Bld) 1.2 % 0-1 [facility] Chloride [Moles/Vol] 107 mmol/L 98-107 [facility] Eosinophils/100 WBC (Bld) 5.2 % 0-5 [facility] Glucose [Mass/Vol] 144 mg/dL 74-106 [facility] Comment on above: Fasting Glucose resu lt greater than or equal to 126 mg/dL suggests DIABETES MELLITUS per A.D.A. criteria. Neutrophils (Bld) [#/Vol] 5.9 10*3/uL 2.0-7.7 [facility] Neutrophils/100 WBC (Bld) 62.3 % 47-70 [facility] Potassium [Moles/Vol] 3.7 mmol/L 3.5-5.1 [facility] Sodium [Moles/Vol] 138 mmol/L 136-145 [facility] WBC (Bld) [#/Vol] 9.4 10*3/uL 4.4-11.0 [facility] Blood erythrocytes count (nu mber/volume)Ordered By: Alfredo Phipps on 06-24-2023 RBC (Bld) [#/Vol] 4.95 10*6/uL 4.6-6.2 [facility] Blood hemoglobin measurement (mass/volume)Ordered By: Alfredo Phipps on 06-24-2023 Hemoglobin (Bld) [Mass/Vol] 14.2 g/dL 13.0-16.5 [facility] Blood lymphocytes/100 leukoc ytesOrdered By: Alfredo Phipps on 06-24-2023 Lymphocytes/100 WBC (Bld) 21.7 % 19-41 [facility] Blood monocytes/100 leukocyt esOrdered By: Alfredo Phipps on 06-24-2023 Monocytes/100 WBC (Bld) 9.1 % 0-10 [facility] Blood platelet mean volumeOr dered By: Alfredo Phipps on 06-24-2023 Platelet mean volume (Bld) [Entitic vol] 9.8 fL 6.2-12.0 [facility] Determination of erythrocyte mean corpuscular volume (MCV)Ordered By: Alfredo Phipps on 06-24-2023 MCV (RBC) [Entitic vol] 88.5 fL 80-94 [facility] Hematocrit Auto (Bld) [Volum e fraction]Ordered By: Alfredo Phipps on 06-24-2023 Hematocrit (Bld) [Volume fraction] 43.8 % 40-54 [facility] - Chemistry and C hemistry - challengeOrdered By: Alfredo Phipps on 06-24-2023 CO2 [Moles/Vol] 25.0 mmol/L 21.0-32.0 [facility] Urea nitrogen/Creatinine [Mass ratio] 11.5 mg/mg 10-20 [facility] - Hematology and Cell countsOrdered By: Alfredo Phipps on 06-24-2023 Erythrocyte distribution width (RBC) [Entitic vol] 42.3 fL 35.1-43.9 [facility] Erythrocyte distribution width (RBC) [Ratio] 13.1 % 11.6-14.6 [facility] Immature granulocytes/100 WBC (Bld) 0.500 % 0.0-0.9 [facility] Comment on above: IG% - Immature Granu locytes (promyelocytes, myelocytes and metamyelocytes) > 1% indicates that a LEFT SHIFT is Present. MCH (RBC) [Entitic mass] 28.7 pg 27.0-32.0 [facility] Nucleated RBC/100 WBC (Bld) [Ratio] 0 % 0-5 [facility] MCHC Auto (RBC) [Mass/Vol]Or dered By: Alfredo Phipps on 06-24-2023 MCHC (RBC) [Mass/Vol] 32.4 g/dL 32-36 [facility] No Panel InformationOrdered By: Alfredo Phipps on 06-24-2023 Estimated GFR (MDRD) Amer 49 mL/min >60 [facility] Comment on above: GFR Calc Estimated GFR (MDRD) Non-Af Amer 40 mL/min >60 [facility] Comment on above: Non- GFR Calc [place] Level 0.60 mmol/L 0.60-1.20 [facility] Platelets bldOrdered By: Jennifer Phipps on 06-24-2023 Platelets (Bld) [#/Vol] 213 10*3/uL 150-450 [facility] Serum or plasma albumin you urement (mass/volume)Ordered By: Alfredo Phipps on 06-24-2023 Albumin [Mass/Vol] 2.9 g/dL 3.2-5.0 [facility] Serum or plasma calcium you urement (mass/volume)Ordered By: Alfredo Phipps on 06-24-2023 Calcium [Mass/Vol] 9.1 mg/dL 8.5-10.1 [facility] Serum or plasma creatinine m easurement (mass/volume)Ordered By: Alfredo Phipps on 06-24-2023 Creatinine [Mass/Vol] 1.83 mg/dL 0.70-1.30 [facility] Comment on above: The validity of the calculated GFR & GFRAA in patients over 70 years has not been determined. Clinical correlation is essential. Serum or plasma urea nitroge n measurement (mass/volume)Ordered By: Alfredo Phipps on 06-24-2023 Urea nitrogen [Mass/Vol] 21 mg/dL 7-18 [facility] Serum or plasma uric acid me asurement (mass/volume)Ordered By: Alfredo Phipps on 06-24-2023 Urate [Mass/Vol] 6.5 mg/dL 3.5-7.2 [facility] Comment on above: The drugs N-Acetylcy steine and Metamizole may falsely depress this assay. Urine creatinine measurement (mass/volume)Ordered By: Alfredo Phipps on 06-24-2023 Creatinine (U) [Mass/Vol] 127.00 mg/dL NO RANGE EST. [facility] Urine protein measurement (m ass/volume)Ordered By: Alfredo Phipps on 06-24-2023 Protein (U) [Mass/Vol] 19.9 mg/dL 0.0-11.8 [facility] Urine protein/creatinine mas s ratioOrdered By: Alfredo Phipps on 06-24-2023 Protein/Creatinine (U) [Mass ratio] 157 mg/g CRE 0-200 [facility] Urine creatinine measurement (mass/volume)Ordered By: Adam Ferraro on 05-30-2023 Creatinine (U) [Mass/Vol] 73.90 mg/dL NO RANGE EST. [facility] Urine protein measurement (m ass/volume)Ordered By: Adam Ferraro on 05-30-2023 Protein (U) [Mass/Vol] 18.0 mg/dL 0.0-11.8 [facility] Urine protein/creatinine mas s ratioOrdered By: Adam Ferraro on 05-30-2023 Protein/Creatinine (U) [Mass ratio] 244 mg/g CRE 0-200 [facility] Absolute lymphocyte countOrd ered By: Adam Ferraro on 05-27-2023 Lymphocytes Auto (Unsp spec) [#/Vol] 1.85 10*3/uL 0.83-4.51 [facility] Basophil percentageOrdered B y: Adam Ferraro on 05-27-2023 Basophil percentage 3.9 mg/dL 2.5-4.9 [facility] Basophils/100 WBC (Bld) 1.1 % 0-1 [facility] Chloride [Moles/Vol] 106 mmol/L 98-107 [facility] Eosinophils/100 WBC (Bld) 3.3 % 0-5 [facility] Glucose [Mass/Vol] 208 mg/dL 74-106 [facility] Comment on above: Glucose result great er than or equal to 200 mg/dLsuggests DIABETES MELLITUS per A.D.A. criteria. Neutrophils (Bld) [#/Vol] 5.6 10*3/uL 2.0-7.7 [facility] Neutrophils/100 WBC (Bld) 64.5 % 47-70 [facility] Potassium [Moles/Vol] 3.7 mmol/L 3.5-5.1 [facility] Sodium [Moles/Vol] 138 mmol/L 136-145 [facility] WBC (Bld) [#/Vol] 8.7 10*3/uL 4.4-11.0 [facility] Blood erythrocytes count (nu mber/volume)Ordered By: Adam Ferraro on 05-27-2023 RBC (Bld) [#/Vol] 4.98 10*6/uL 4.6-6.2 [facility] Blood hemoglobin measurement (mass/volume)Ordered By: Adam Ferraro on 05-27-2023 Hemoglobin (Bld) [Mass/Vol] 14.4 g/dL 13.0-16.5 [facility] Blood lymphocytes/100 leukoc ytesOrdered By: Adam Ferraro on 05-27-2023 Lymphocytes/100 WBC (Bld) 21.2 % 19-41 [facility] Blood monocytes/100 leukocyt esOrdered By: Adam Ferraro on 05-27-2023 Monocytes/100 WBC (Bld) 9.3 % 0-10 [facility] Blood platelet mean volumeOr dered By: Adam Ferraro on 05-27-2023 Platelet mean volume (Bld) [Entitic vol] 10.0 fL 6.2-12.0 [facility] Determination of erythrocyte mean corpuscular volume (MCV)Ordered By: Adam Ferraro on 05-27-2023 MCV (RBC) [Entitic vol] 89.6 fL 80-94 [facility] Hematocrit Auto (Bld) [Volum e fraction]Ordered By: Adam Ferraro on 05-27-2023 Hematocrit (Bld) [Volume fraction] 44.6 % 40-54 [facility] Laboratory - Chemistry and C hemistry - challengeOrdered By: Adam Ferraro on 05-27-2023 CO2 [Moles/Vol] 27.0 mmol/L 21.0-32.0 [facility] Urea nitrogen/Creatinine [Mass ratio] 11.5 mg/mg 10-20 [facility] Laboratory - Hematology and Cell countsOrdered By: Adam Ferraro on 05-27-2023 Erythrocyte distribution width (RBC) [Entitic vol] 42.2 fL 35.1-43.9 [facility] Erythrocyte distribution width (RBC) [Ratio] 13.0 % 11.6-14.6 [facility] Immature granulocytes/100 WBC (Bld) 0.600 % 0.0-0.9 [facility] Comment on above: IG% - Immature Granu locytes (promyelocytes, myelocytes and metamyelocytes) > 1% indicates that a LEFT SHIFT is Present. MCH (RBC) [Entitic mass] 28.9 pg 27.0-32.0 [facility] Nucleated RBC/100 WBC (Bld) [Ratio] 0 % 0-5 [facility] MCHC Auto (RBC) [Mass/Vol]Or dered By: Adam Ferraro on 05-27-2023 MCHC (RBC) [Mass/Vol] 32.3 g/dL 32-36 [facility] No Panel InformationOrdered By: Adam Ferraro on 05-27-2023 Estimated GFR (MDRD) Amer 52 mL/min >60 [facility] Comment on above: GFR Calc Estimated GFR (MDRD) Non-Af Amer 43 mL/min >60 [facility] Comment on above: Non- GFR Calc [place] Level 0.40 mmol/L 0.60-1.20 [facility] Platelets bldOrdered By: Benoit Ferraro on 05-27-2023 Platelets (Bld) [#/Vol] 211 10*3/uL 150-450 [facility] Serum or plasma albumin you urement (mass/volume)Ordered By: Adam Ferraro on 05-27-2023 Albumin [Mass/Vol] 2.9 g/dL 3.2-5.0 [facility] Serum or plasma calcium you urement (mass/volume)Ordered By: Adam Ferraro on 05-27-2023 Calcium [Mass/Vol] 9.2 mg/dL 8.5-10.1 [facility] Serum or plasma creatinine m easurement (mass/volume)Ordered By: Adam Ferraro on 05-27-2023 Creatinine [Mass/Vol] 1.74 mg/dL 0.70-1.30 [facility] Comment on above: The validity of the calculated GFR & GFRAA in patients over 70 years has not been determined. Clinical correlation is essential. Serum or plasma urea nitroge n measurement (mass/volume)Ordered By: Adam Ferraro on 05-27-2023 Urea nitrogen [Mass/Vol] 20 mg/dL 7-18 [facility] Serum or plasma uric acid me asurement (mass/volume)Ordered By: Adam Ferraro on 05-27-2023 Urate [Mass/Vol] 4.9 mg/dL 3.5-7.2 [facility] Comment on above: The drugs N-Acetylcy steine and Metamizole may falsely depress this assay. Whole blood hemoglobin A1c/t otal hemoglobin ratio (mass fraction)Ordered By: Adam Ferraro on 05-19-2023 HbA1c (Bld) [Mass fraction] 11.1 % 3.8-5.6 [facility] Comment on above: Normal < 5.7 % Predi abetic 5.7 - 6.4 % Diabetic >or= 6.5 % Please note range changes. Absolute lymphocyte countOrd ered By: Alfredo Phipps on 04-29-2023 Lymphocytes Auto (Unsp spec) [#/Vol] 1.98 10*3/uL 0.83-4.51 [facility] Basophil percentageOrdered B y: Alfredo Phipps on 04-29-2023 Basophil percentage 3.6 mg/dL 2.5-4.9 [facility] Basophils/100 WBC (Bld) 1.0 % 0-1 [facility] Chloride [Moles/Vol] 105 mmol/L 98-107 [facility] Eosinophils/100 WBC (Bld) 2.7 % 0-5 [facility] Glucose [Mass/Vol] 300 mg/dL 74-106 [facility] Comment on above: Glucose result great er than or equal to 200 mg/dLsuggests DIABETES MELLITUS per A.D.A. criteria. Neutrophils (Bld) [#/Vol] 5.7 10*3/uL 2.0-7.7 [facility] Neutrophils/100 WBC (Bld) 64.2 % 47-70 [facility] Potassium [Moles/Vol] 3.9 mmol/L 3.5-5.1 [facility] Sodium [Moles/Vol] 138 mmol/L 136-145 [facility] WBC (Bld) [#/Vol] 8.9 10*3/uL 4.4-11.0 [facility] Blood erythrocytes count (nu mber/volume)Ordered By: Alfredo Phipps on 04-29-2023 RBC (Bld) [#/Vol] 4.74 10*6/uL 4.6-6.2 [facility] Blood hemoglobin measurement (mass/volume)Ordered By: Alfredo Phipps on 04-29-2023 Hemoglobin (Bld) [Mass/Vol] 13.6 g/dL 13.0-16.5 [facility] Blood lymphocytes/100 leukoc ytesOrdered By: Alfredo Phipps on 04-29-2023 Lymphocytes/100 WBC (Bld) 22.2 % 19-41 [facility] Blood monocytes/100 leukocyt esOrdered By: Alfredo Phipps on 04-29-2023 Monocytes/100 WBC (Bld) 9.2 % 0-10 [facility] Blood platelet mean volumeOr dered By: Alfredo Phipps on 04-29-2023 Platelet mean volume (Bld) [Entitic vol] 9.7 fL 6.2-12.0 [facility] Determination of erythrocyte mean corpuscular volume (MCV)Ordered By: Alfredo Phipps on 04-29-2023 MCV (RBC) [Entitic vol] 87.8 fL 80-94 [facility] Hematocrit Auto (Bld) [Volum e fraction]Ordered By: Alfredo Phipps on 04-29-2023 Hematocrit (Bld) [Volume fraction] 41.6 % 40-54 [facility] Laboratory - Chemistry and C hemistry - challengeOrdered By: Alfredo Phipps on 04-29-2023 CO2 [Moles/Vol] 24.0 mmol/L 21.0-32.0 [facility] Urea nitrogen/Creatinine [Mass ratio] 13.7 mg/mg 10-20 [facility] - Hematology and Cell countsOrdered By: Alfredo Phipps on 04-29-2023 Erythrocyte distribution width (RBC) [Entitic vol] 41.7 fL 35.1-43.9 [facility] Erythrocyte distribution width (RBC) [Ratio] 12.9 % 11.6-14.6 [facility] Immature granulocytes/100 WBC (Bld) 0.700 % 0.0-0.9 [facility] Comment on above: IG% - Immature Granu locytes (promyelocytes, myelocytes and metamyelocytes) > 1% indicates that a LEFT SHIFT is Present. MCH (RBC) [Entitic mass] 28.7 pg 27.0-32.0 [facility] Nucleated RBC/100 WBC (Bld) [Ratio] 0 % 0-5 [facility] MCHC Auto (RBC) [Mass/Vol]Or dered By: Alfredo Phipps on 04-29-2023 MCHC (RBC) [Mass/Vol] 32.7 g/dL 32-36 [facility] No Panel InformationOrdered By: Alfredo Phipps on 04-29-2023 Estimated GFR (MDRD) Amer 51 mL/min >60 [facility] Comment on above: GFR Calc Estimated GFR (MDRD) Non-Af Amer 43 mL/min >60 [facility] Comment on above: Non- GFR Calc [place] Level 0.40 mmol/L 0.60-1.20 [facility] Platelets bldOrdered By: Jennifer Phipps on 04-29-2023 Platelets (Bld) [#/Vol] 204 10*3/uL 150-450 [facility] Serum or plasma albumin you urement (mass/volume)Ordered By: Alfredo Phipps on 04-29-2023 Albumin [Mass/Vol] 2.7 g/dL 3.2-5.0 [facility] Serum or plasma calcium you urement (mass/volume)Ordered By: Alfredo Phipps on 04-29-2023 Calcium [Mass/Vol] 8.9 mg/dL 8.5-10.1 [facility] Serum or plasma creatinine m easurement (mass/volume)Ordered By: Alfredo Phipps on 04-29-2023 Creatinine [Mass/Vol] 1.75 mg/dL 0.70-1.30 [facility] Comment on above: The validity of the calculated GFR & GFRAA in patients over 70 years has not been determined. Clinical correlation is essential. Serum or plasma urea nitroge n measurement (mass/volume)Ordered By: Alfredo Phipps on 04-29-2023 Urea nitrogen [Mass/Vol] 24 mg/dL 7-18 [facility] Serum or plasma uric acid me asurement (mass/volume)Ordered By: Alfredo Phipps on 04-27-2023 Urate [Mass/Vol] 4.8 mg/dL 3.5-7.2 [facility] Comment on above: The drugs N-Acetylcy steine and Metamizole may falsely depress this assay. Urine creatinine measurement (mass/volume)Ordered By: Adam Ferraro on 04-04-2023 Creatinine (U) [Mass/Vol] 96.50 mg/dL NO RANGE EST. [facility] Urine protein measurement (m ass/volume)Ordered By: Adam Ferraro on 04-04-2023 Protein (U) [Mass/Vol] 26.4 mg/dL 0.0-11.8 [facility] Urine protein/creatinine mas s ratioOrdered By: Adam Ferraro on 04-04-2023 Protein/Creatinine (U) [Mass ratio] 274 mg/g CRE 0-200 [facility] Absolute lymphocyte countOrd ered By: Adam Ferraro on 04-01-2023 Lymphocytes Auto (Unsp spec) [#/Vol] 1.91 10*3/uL 0.83-4.51 [facility] Basophil percentageOrdered B y: Adam Ferraro on 04-01-2023 Basophil percentage 3.3 mg/dL 2.5-4.9 [facility] Basophils/100 WBC (Bld) 1.1 % 0-1 [facility] Chloride [Moles/Vol] 105 mmol/L 98-107 [facility] Eosinophils/100 WBC (Bld) 2.7 % 0-5 [facility] Glucose [Mass/Vol] 317 mg/dL 74-106 [facility] Comment on above: Glucose result great er than or equal to 200 mg/dLsuggests DIABETES MELLITUS per A.D.A. criteria. Neutrophils (Bld) [#/Vol] 5.4 10*3/uL 2.0-7.7 [facility] Neutrophils/100 WBC (Bld) 64.7 % 47-70 [facility] Potassium [Moles/Vol] 3.8 mmol/L 3.5-5.1 [facility] Sodium [Moles/Vol] 137 mmol/L 136-145 [facility] WBC (Bld) [#/Vol] 8.4 10*3/uL 4.4-11.0 [facility] Blood erythrocytes count (nu mber/volume)Ordered By: Adam Ferraro on 04-01-2023 RBC (Bld) [#/Vol] 5.17 10*6/uL 4.6-6.2 [facility] Blood hemoglobin measurement (mass/volume)Ordered By: Adam Ferraro on 04-01-2023 Hemoglobin (Bld) [Mass/Vol] 14.7 g/dL 13.0-16.5 [facility] Blood lymphocytes/100 leukoc ytesOrdered By: Adam Ferraro on 04-01-2023 Lymphocytes/100 WBC (Bld) 22.7 % 19-41 [facility] Blood monocytes/100 leukocyt esOrdered By: Adam Ferraro on 04-01-2023 Monocytes/100 WBC (Bld) 8.2 % 0-10 [facility] Blood platelet mean volumeOr dered By: Adam Ferraro on 04-01-2023 Platelet mean volume (Bld) [Entitic vol] 9.8 fL 6.2-12.0 [facility] Determination of erythrocyte mean corpuscular volume (MCV)Ordered By: Adam Ferraro on 04-01-2023 MCV (RBC) [Entitic vol] 88.6 fL 80-94 [facility] Hematocrit Auto (Bld) [Volum e fraction]Ordered By: Adam Ferraro on 04-01-2023 Hematocrit (Bld) [Volume fraction] 45.8 % 40-54 [facility] - Chemistry and C hemistry - challengeOrdered By: Adam Ferraro on 04-01-2023 CO2 [Moles/Vol] 25.0 mmol/L 21.0-32.0 [facility] Urea nitrogen/Creatinine [Mass ratio] 13.7 mg/mg 10-20 [facility] - Hematology and Cell countsOrdered By: Adam Ferraro on 04-01-2023 Erythrocyte distribution width (RBC) [Entitic vol] 42.5 fL 35.1-43.9 [facility] Erythrocyte distribution width (RBC) [Ratio] 13.1 % 11.6-14.6 [facility] Immature granulocytes/100 WBC (Bld) 0.600 % 0.0-0.9 [facility] Comment on above: IG% - Immature Granu locytes (promyelocytes, myelocytes and metamyelocytes) > 1% indicates that a LEFT SHIFT is Present. MCH (RBC) [Entitic mass] 28.4 pg 27.0-32.0 [facility] Nucleated RBC/100 WBC (Bld) [Ratio] 0 % 0-5 [facility] MCHC Auto (RBC) [Mass/Vol]Or dered By: Adam Ferraro on 04-01-2023 MCHC (RBC) [Mass/Vol] 32.1 g/dL 32-36 [facility] No Panel InformationOrdered By: Adam Ferraro on 04-01-2023 Estimated GFR (MDRD) Amer 49 mL/min >60 [facility] Comment on above: GFR Calc Estimated GFR (MDRD) Non-Af Amer 41 mL/min >60 [facility] Comment on above: Non- GFR Calc [place] Level < 0.20 mmol/L 0.60-1.20 [facility] Platelets bldOrdered By: Benoit Ferraro on 04-01-2023 Platelets (Bld) [#/Vol] 209 10*3/uL 150-450 [facility] Serum or plasma albumin you urement (mass/volume)Ordered By: Adam Ferraro on 04-01-2023 Albumin [Mass/Vol] 3.0 g/dL 3.2-5.0 [facility] Serum or plasma calcium you urement (mass/volume)Ordered By: Adam Ferraro on 04-01-2023 Calcium [Mass/Vol] 8.9 mg/dL 8.5-10.1 [facility] Serum or plasma creatinine m easurement (mass/volume)Ordered By: Adam Ferraro on 04-01-2023 Creatinine [Mass/Vol] 1.82 mg/dL 0.70-1.30 [facility] Comment on above: The validity of the calculated GFR & GFRAA in patients over 70 years has not been determined. Clinical correlation is essential. Serum or plasma urea nitroge n measurement (mass/volume)Ordered By: Adam Ferraro on 04-01-2023 Urea nitrogen [Mass/Vol] 25 mg/dL 7-18 [facility] Absolute lymphocyte countOrd ered By: Alfredo Phipps on 03-04-2023 Lymphocytes Auto (Unsp spec) [#/Vol] 2.18 10*3/uL 0.83-4.51 [facility] Basophil percentageOrdered B y: Alfredo Phipps on 03-04-2023 Basophil percentage 3.9 mg/dL 2.5-4.9 [facility] Basophils/100 WBC (Bld) 0.9 % 0-1 [facility] Chloride [Moles/Vol] 109 mmol/L 98-107 [facility] Eosinophils/100 WBC (Bld) 3.5 % 0-5 [facility] Glucose [Mass/Vol] 179 mg/dL 74-106 [facility] Comment on above: Fasting Glucose resu lt greater than or equal to 126 mg/dL suggests DIABETES MELLITUS per A.D.A. criteria. Neutrophils (Bld) [#/Vol] 6.1 10*3/uL 2.0-7.7 [facility] Neutrophils/100 WBC (Bld) 63.2 % 47-70 [facility] Potassium [Moles/Vol] 3.9 mmol/L 3.5-5.1 [facility] Sodium [Moles/Vol] 138 mmol/L 136-145 [facility] WBC (Bld) [#/Vol] 9.6 10*3/uL 4.4-11.0 [facility] Blood erythrocytes count (nu mber/volume)Ordered By: Alfredo Phipps on 03-04-2023 RBC (Bld) [#/Vol] 4.74 10*6/uL 4.6-6.2 [facility] Blood hemoglobin measurement (mass/volume)Ordered By: Alfredo Phipps on 03-04-2023 Hemoglobin (Bld) [Mass/Vol] 13.6 g/dL 13.0-16.5 [facility] Blood lymphocytes/100 leukoc ytesOrdered By: Alfredo Phipps on 03-04-2023 Lymphocytes/100 WBC (Bld) 22.6 % 19-41 [facility] Blood monocytes/100 leukocyt esOrdered By: Alfredo Phipps on 03-04-2023 Monocytes/100 WBC (Bld) 9.4 % 0-10 [facility] Blood platelet mean volumeOr dered By: Alfredo Phipps on 03-04-2023 Platelet mean volume (Bld) [Entitic vol] 9.7 fL 6.2-12.0 [facility] Determination of erythrocyte mean corpuscular volume (MCV)Ordered By: Alfredo Phipps on 03-04-2023 MCV (RBC) [Entitic vol] 90.3 fL 80-94 [facility] Hematocrit Auto (Bld) [Volum e fraction]Ordered By: Alfredo Phipps on 03-04-2023 Hematocrit (Bld) [Volume fraction] 42.8 % 40-54 [facility] - Chemistry and C hemistry - challengeOrdered By: Alfredo Phipps on 03-04-2023 CO2 [Moles/Vol] 26.0 mmol/L 21.0-32.0 [facility] Urea nitrogen/Creatinine [Mass ratio] 13.9 mg/mg 10-20 [facility] - Hematology and Cell countsOrdered By: Alfredo Phipps on 03-04-2023 Erythrocyte distribution width (RBC) [Entitic vol] 42.8 fL 35.1-43.9 [facility] Erythrocyte distribution width (RBC) [Ratio] 12.9 % 11.6-14.6 [facility] Immature granulocytes/100 WBC (Bld) 0.400 % 0.0-0.9 [facility] Comment on above: IG% - Immature Granu locytes (promyelocytes, myelocytes and metamyelocytes) > 1% indicates that a LEFT SHIFT is Present. MCH (RBC) [Entitic mass] 28.7 pg 27.0-32.0 [facility] Nucleated [facility] [Mass/Vol]Or dered By: Alfredo Phipps on 03-04-2023 MCHC (RBC) [Mass/Vol] 31.8 g/dL 32-36 [facility] No Panel InformationOrdered By: Alfredo Phipps on 03-04-2023 Estimated GFR (MDRD) Amer 55 mL/min >60 [facility] Comment on above: GFR Calc Estimated GFR (MDRD) Non-Af Amer 46 mL/min >60 [facility] Comment on above: Non- GFR Calc [place] Level 0.40 mmol/L 0.60-1.20 [facility] Platelets bldOrdered By: Jennifer Phipps on 03-04-2023 Platelets (Bld) [#/Vol] 207 10*3/uL 150-450 [facility] Serum or plasma albumin you urement (mass/volume)Ordered By: Alfredo Phipps on 03-04-2023 Albumin [Mass/Vol] 2.8 g/dL 3.2-5.0 [facility] Serum or plasma calcium you urement (mass/volume)Ordered By: Alfredo Phipps on 03-04-2023 Calcium [Mass/Vol] 9.2 mg/dL 8.5-10.1 [facility] Serum or plasma creatinine m easurement (mass/volume)Ordered By: Alfredo Phipps on 03-04-2023 Creatinine [Mass/Vol] 1.65 mg/dL 0.70-1.30 [facility] Comment on above: The validity of the calculated GFR & GFRAA in patients over 70 years has not been determined. Clinical correlation is essential. Serum or plasma urea nitroge n measurement (mass/volume)Ordered By: Alfredo Phipps on 03-04-2023 Urea nitrogen [Mass/Vol] 23 mg/dL 7-18 [facility] Serum or plasma uric acid me asurement (mass/volume)Ordered By: Alfredo Phipps on 02-25-2023 Urate [Mass/Vol] 5.6 mg/dL 3.5-7.2 [facility] Comment on above: The drugs N-Acetylcy steine and Metamizole may falsely depress this assay. Absolute lymphocyte countOrd ered By: Alfredo Phipps on 02-04-2023 Lymphocytes Auto (Unsp spec) [#/Vol] 2.03 10*3/uL 0.83-4.51 [facility] Basophil percentageOrdered B y: Alfredo Phipps on 02-04-2023 Basophil percentage 4.3 mg/dL 2.5-4.9 [facility] Basophils/100 WBC (Bld) 1.2 % 0-1 [facility] Chloride [Moles/Vol] 108 mmol/L 98-107 [facility] Eosinophils/100 WBC (Bld) 3.6 % 0-5 [facility] Glucose [Mass/Vol] 193 mg/dL 74-106 [facility] Comment on above: Fasting Glucose resu lt greater than or equal to 126 mg/dL suggests DIABETES MELLITUS per A.D.A. criteria. Neutrophils (Bld) [#/Vol] 6.1 10*3/uL 2.0-7.7 [facility] Neutrophils/100 WBC (Bld) 63.9 % 47-70 [facility] Potassium [Moles/Vol] 4.0 mmol/L 3.5-5.1 [facility] Sodium [Moles/Vol] 139 mmol/L 136-145 [facility] WBC (Bld) [#/Vol] 9.5 10*3/uL 4.4-11.0 [facility] Blood erythrocytes count (nu mber/volume)Ordered By: Alfredo Phipps on 02-04-2023 RBC (Bld) [#/Vol] 4.81 10*6/uL 4.6-6.2 [facility] Blood hemoglobin measurement (mass/volume)Ordered By: Alfredo Phipps on 02-04-2023 Hemoglobin (Bld) [Mass/Vol] 13.9 g/dL 13.0-16.5 [facility] Blood lymphocytes/100 leukoc ytesOrdered By: Alfredo Phipps on 02-04-2023 Lymphocytes/100 WBC (Bld) 21.4 % 19-41 [facility] Blood monocytes/100 leukocyt esOrdered By: Alfredo Phipps on 02-04-2023 Monocytes/100 WBC (Bld) 9.2 % 0-10 [facility] Blood platelet mean volumeOr dered By: Alfredo Phipps on 02-04-2023 Platelet mean volume (Bld) [Entitic vol] 9.4 fL 6.2-12.0 [facility] Determination of erythrocyte mean corpuscular volume (MCV)Ordered By: Alfredo Phipps on 02-04-2023 MCV (RBC) [Entitic vol] 94.2 fL 80-94 [facility] Hematocrit Auto (Bld) [Volum e fraction]Ordered By: Alfredo Phipps on 02-04-2023 Hematocrit (Bld) [Volume fraction] 45.3 % 40-54 [facility] - Chemistry and C hemistry - challengeOrdered By: Alfredo Phipps on 02-04-2023 CO2 [Moles/Vol] 24.0 mmol/L 21.0-32.0 [facility] Urea nitrogen/Creatinine [Mass ratio] 14.6 mg/mg 10-20 [facility] - Hematology and Cell countsOrdered By: Alfredo Phipps on 02-04-2023 Erythrocyte distribution width (RBC) [Entitic vol] 45.1 fL 35.1-43.9 [facility] Erythrocyte distribution width (RBC) [Ratio] 13.1 % 11.6-14.6 [facility] Immature granulocytes/100 WBC (Bld) 0.700 % 0.0-0.9 [facility] Comment on above: IG% - Immature Granu locytes (promyelocytes, myelocytes and metamyelocytes) > 1% indicates that a LEFT SHIFT is Present. MCH (RBC) [Entitic mass] 28.9 pg 27.0-32.0 [facility] Nucleated RBC/100 WBC (Bld) [Ratio] 0 % 0-5 [facility] MCHC Auto (RBC) [Mass/Vol]Or dered By: Alfredo Phipps on 02-04-2023 MCHC (RBC) [Mass/Vol] 30.7 g/dL 32-36 [facility] No Panel InformationOrdered By: Alfredo Phipps on 02-04-2023 Estimated GFR (MDRD) Amer 53 mL/min >60 [facility] Comment on above: GFR Calc Estimated GFR (MDRD) Non-Af Amer 44 mL/min >60 [facility] Comment on above: Non- GFR Calc [place] Level 0.50 mmol/L 0.60-1.20 [facility] Platelets bldOrdered By: Jennifer Phipps on 02-04-2023 Platelets (Bld) [#/Vol] 182 10*3/uL 150-450 [facility] Serum or plasma albumin you urement (mass/volume)Ordered By: Alfredo Phipps on 02-04-2023 Albumin [Mass/Vol] 2.9 g/dL 3.2-5.0 [facility] Serum or plasma calcium you urement (mass/volume)Ordered By: Alfredo Phipps on 02-04-2023 Calcium [Mass/Vol] 8.9 mg/dL 8.5-10.1 [facility] Serum or plasma creatinine m easurement (mass/volume)Ordered By: Alfredo Phipps on 02-04-2023 Creatinine [Mass/Vol] 1.71 mg/dL 0.70-1.30 [facility] Comment on above: The validity of the calculated GFR & GFRAA in patients over 70 years has not been determined. Clinical correlation is essential. Serum or plasma urea nitroge n measurement (mass/volume)Ordered By: Alfredo Phipps on 02-04-2023 Urea nitrogen [Mass/Vol] 25 mg/dL 7-18 [facility] Serum or plasma uric acid me asurement (mass/volume)Ordered By: Adam Ferraro on 01-25-2023 Urate [Mass/Vol] 5.8 mg/dL 3.5-7.2 [facility] Comment on above: The drugs N-Acetylcy steine and Metamizole may falsely depress this assay. Basophil percentageOrdered B y: Alfredo Phipps on 01-19-2023 Cholesterol [Mass/Vol] 160 mg/dL <200 [facility] Comment on above: <200 mg/dL Desirable 200-240 mg/dL Borderline >240 mg/dL High Risk Triglyceride [Mass/Vol] 322 mg/dL <199 [facility] Comment on above: The drugs N-Acetylcy steine and Metamizole may falsely depress this assay.Serum Triglycerides Reference Interval Normal <150 mg/dL Borderline high 150 - 199 mg/dL High 200 - 499 mg/dL Very High > or = 500 mg/dL Serum or plasma cholesterol in HDL measurement (mass/volume)Ordered By: Alfredo Phipps on 01-19-2023 Cholesterol in HDL [Mass/Vol] 38 mg/dL >40 [facility] Comment on above: The drugs N-Acetylcy steine and Metamizole may falsely depress this assay. Reference Range HDL <40 mg/dL Low HDL Cholesterol HDL >or= 60 mg/dL High HDL Cholesterol Serum or plasma cholesterol in VLDL measurement (mass/volume)Ordered By: Alfredo Phipps on 01-19-2023 Cholesterol in VLDL [Mass/Vol] 64 mg/dL 5-40 [facility] Serum or plasma low density lipoprotein (LDL) cholesterol measurement (mass/volume)Ordered By: Alfredo Phipps on 01-19-2023 Cholesterol in LDL [Mass/Vol] 58 mg/dL 0-130 [facility] Absolute lymphocyte countOrd ered By: Alfredo Phipps on 01-07-2023 Lymphocytes Auto (Unsp spec) [#/Vol] 2.02 10*3/uL 0.83-4.51 [facility] Basophil percentageOrdered B y: Alfredo Phipps on 01-07-2023 Basophil percentage 3.6 mg/dL 2.5-4.9 [facility] Basophils/100 WBC (Bld) 1.0 % 0-1 [facility] Chloride [Moles/Vol] 109 mmol/L 98-107 [facility] Eosinophils/100 WBC (Bld) 2.8 % 0-5 [facility] Glucose [Mass/Vol] 236 mg/dL 74-106 [facility] Comment on above: Glucose result great er than or equal to 200 mg/dLsuggests DIABETES MELLITUS per A.D.A. criteria. Neutrophils (Bld) [#/Vol] 5.8 10*3/uL 2.0-7.7 [facility] Neutrophils/100 WBC (Bld) 62.2 % 47-70 [facility] Potassium [Moles/Vol] 4.1 mmol/L 3.5-5.1 [facility] Sodium [Moles/Vol] 141 mmol/L 136-145 [facility] WBC (Bld) [#/Vol] 9.3 10*3/uL 4.4-11.0 [facility] Blood erythrocytes count (nu mber/volume)Ordered By: Alfredo Phipps on 01-07-2023 RBC (Bld) [#/Vol] 4.67 10*6/uL 4.6-6.2 [facility] Blood hemoglobin measurement (mass/volume)Ordered By: Alfredo Phipps on 01-07-2023 Hemoglobin (Bld) [Mass/Vol] 13.5 g/dL 13.0-16.5 [facility] Blood lymphocytes/100 leukoc ytesOrdered By: Alfredo Phipps on 01-07-2023 Lymphocytes/100 WBC (Bld) 21.8 % 19-41 [facility] Blood monocytes/100 leukocyt esOrdered By: Alfredo Phipps on 01-07-2023 Monocytes/100 WBC (Bld) 11.6 % 0-10 [facility] Blood platelet mean volumeOr dered By: Alfredo Phipps on 01-07-2023 Platelet mean volume (Bld) [Entitic vol] 9.8 fL 6.2-12.0 [facility] Determination of erythrocyte mean corpuscular volume (MCV)Ordered By: Alfredo Phipps on 01-07-2023 MCV (RBC) [Entitic vol] 89.7 fL 80-94 [facility] Hematocrit Auto (Bld) [Volum e fraction]Ordered By: Alfredo Phipps on 01-07-2023 Hematocrit (Bld) [Volume fraction] 41.9 % 40-54 [facility] Laboratory - Chemistry and C hemistry - challengeOrdered By: Alfredo Phipps on 01-07-2023 CO2 [Moles/Vol] 26.0 mmol/L 21.0-32.0 [facility] Urea nitrogen/Creatinine [Mass ratio] 13.4 mg/mg 10-20 [facility] - Hematology and Cell countsOrdered By: Alfredo Phipps on 01-07-2023 Erythrocyte distribution width (RBC) [Entitic vol] 42.5 fL 35.1-43.9 [facility] Erythrocyte distribution width (RBC) [Ratio] 13.1 % 11.6-14.6 [facility] Immature granulocytes/100 WBC (Bld) 0.600 % 0.0-0.9 [facility] Comment on above: IG% - Immature Granu locytes (promyelocytes, myelocytes and metamyelocytes) > 1% indicates that a LEFT SHIFT is Present. MCH (RBC) [Entitic mass] 28.9 pg 27.0-32.0 [facility] Nucleated RBC/100 WBC (Bld) [Ratio] 0 % 0-5 [facility] MCHC Auto (RBC) [Mass/Vol]Or dered By: Alfredo Phipps on 01-07-2023 MCHC (RBC) [Mass/Vol] 32.2 g/dL 32-36 [facility] No Panel InformationOrdered By: Alfredo Phipps on 01-07-2023 Estimated GFR (MDRD) Amer 48 mL/min >60 [facility] Comment on above: GFR Calc Estimated GFR (MDRD) Non-Af Amer 40 mL/min >60 [facility] Comment on above: Non- GFR Calc [place] Level 0.30 mmol/L 0.60-1.20 [facility] Platelets bldOrdered By: Jennifer Phipps on 01-07-2023 Platelets (Bld) [#/Vol] 203 10*3/uL 150-450 [facility] Serum or plasma albumin you urement (mass/volume)Ordered By: Alfredo Phipps on 01-07-2023 Albumin [Mass/Vol] 2.9 g/dL 3.2-5.0 [facility] Serum or plasma calcium you urement (mass/volume)Ordered By: Alfredo Phipps on 01-07-2023 Calcium [Mass/Vol] 9.0 mg/dL 8.5-10.1 [facility] Serum or plasma creatinine m easurement (mass/volume)Ordered By: Alfredo Phipps on 01-07-2023 Creatinine [Mass/Vol] 1.86 mg/dL 0.70-1.30 [facility] Comment on above: The validity of the calculated GFR & GFRAA in patients over 70 years has not been determined. Clinical correlation is essential. Serum or plasma urea nitroge n measurement (mass/volume)Ordered By: Alfredo Phipps on 01-07-2023 Urea nitrogen [Mass/Vol] 25 mg/dL 7-18 [facility] Serum or plasma uric acid me asurement (mass/volume)Ordered By: Adam Ferraro on 12-28-2022 Urate [Mass/Vol] 5.9 mg/dL 3.5-7.2 [facility] Comment on above: The drugs N-Acetylcy steine and Metamizole may falsely depress this assay. Urine creatinine measurement (mass/volume)Ordered By: Adam Ferraro on 12-15-2022 Creatinine (U) [Mass/Vol] 141.00 mg/dL NO RANGE EST. [facility] Urine protein measurement (m ass/volume)Ordered By: Adam Ferraro on 12-15-2022 Protein (U) [Mass/Vol] 29.9 mg/dL 0.0-11.8 [facility] Urine protein/creatinine mas s ratioOrdered By: Adam Ferraro on 12-15-2022 Protein/Creatinine (U) [Mass ratio] 212 mg/g CRE 0-200 [facility] Absolute lymphocyte countOrd ered By: Adam Ferraro on 12-10-2022 Lymphocytes Auto (Unsp spec) [#/Vol] 1.96 10*3/uL 0.83-4.51 [facility] Basophil percentageOrdered B y: Adam Ferraro on 12-10-2022 Basophil percentage 4.0 mg/dL 2.5-4.9 [facility] Basophils/100 WBC (Bld) 1.2 % 0-1 [facility] Chloride [Moles/Vol] 106 mmol/L 98-107 [facility] Eosinophils/100 WBC (Bld) 3.6 % 0-5 [facility] Glucose [Mass/Vol] 155 mg/dL 74-106 [facility] Comment on above: Fasting Glucose resu lt greater than or equal to 126 mg/dL suggests DIABETES MELLITUS per A.D.A. criteria. Neutrophils (Bld) [#/Vol] 4.9 10*3/uL 2.0-7.7 [facility] Neutrophils/100 WBC (Bld) 60.1 % 47-70 [facility] Potassium [Moles/Vol] 4.1 mmol/L 3.5-5.1 [facility] Sodium [Moles/Vol] 140 mmol/L 136-145 [facility] WBC (Bld) [#/Vol] 8.1 10*3/uL 4.4-11.0 [facility] Blood erythrocytes count (nu mber/volume)Ordered By: Adam Ferraro on 12-10-2022 RBC (Bld) [#/Vol] 4.96 10*6/uL 4.6-6.2 [facility] Blood hemoglobin measurement (mass/volume)Ordered By: Adam Ferraro on 12-10-2022 Hemoglobin (Bld) [Mass/Vol] 14.4 g/dL 13.0-16.5 [facility] Blood lymphocytes/100 leukoc ytesOrdered By: Adam Ferraro on 12-10-2022 Lymphocytes/100 WBC (Bld) 24.1 % 19-41 [facility] Blood monocytes/100 leukocyt esOrdered By: Adam Ferraro on 12-10-2022 Monocytes/100 WBC (Bld) 10.6 % 0-10 [facility] Blood platelet mean volumeOr dered By: Adam Ferraro on 12-10-2022 Platelet mean volume (Bld) [Entitic vol] 9.8 fL 6.2-12.0 [facility] Determination of erythrocyte mean corpuscular volume (MCV)Ordered By: Adam Ferraro on 12-10-2022 MCV (RBC) [Entitic vol] 89.5 fL 80-94 [facility] Hematocrit Auto (Bld) [Volum e fraction]Ordered By: Adam Ferraro on 12-10-2022 Hematocrit (Bld) [Volume fraction] 44.4 % 40-54 [facility] - Chemistry and C hemistry - challengeOrdered By: Adam Ferraro on 12-10-2022 CO2 [Moles/Vol] 26.0 mmol/L 21.0-32.0 [facility] Urea nitrogen/Creatinine [Mass ratio] 10.1 mg/mg 10-20 [facility] - Hematology and Cell countsOrdered By: Adam Ferraro on 12-10-2022 Erythrocyte distribution width (RBC) [Entitic vol] 42.6 fL 35.1-43.9 [facility] Erythrocyte distribution width (RBC) [Ratio] 13.0 % 11.6-14.6 [facility] Immature granulocytes/100 WBC (Bld) 0.400 % 0.0-0.9 [facility] Comment on above: IG% - Immature Granu locytes (promyelocytes, myelocytes and metamyelocytes) > 1% indicates that a LEFT SHIFT is Present. MCH (RBC) [Entitic mass] 29.0 pg 27.0-32.0 [facility] Nucleated RBC/100 WBC (Bld) [Ratio] 0 % 0-5 [facility] MCHC Auto (RBC) [Mass/Vol]Or dered By: Adam Ferraro on 12-10-2022 MCHC (RBC) [Mass/Vol] 32.4 g/dL 32-36 [facility] No Panel InformationOrdered By: Adam Ferraro on 12-10-2022 Estimated GFR (MDRD) Amer 50 mL/min >60 [facility] Comment on above: GFR Calc Estimated GFR (MDRD) Non-Af Amer 41 mL/min >60 [facility] Comment on above: Non- GFR Calc [place] Level 0.50 mmol/L 0.60-1.20 [facility] Platelets bldOrdered By: Benoit Ferraro on 12-10-2022 Platelets (Bld) [#/Vol] 213 10*3/uL 150-450 [facility] Serum or plasma albumin you urement (mass/volume)Ordered By: Adam Ferraro on 12-10-2022 Albumin [Mass/Vol] 2.8 g/dL 3.2-5.0 [facility] Serum or plasma calcium you urement (mass/volume)Ordered By: Adam Ferraro on 12-10-2022 Calcium [Mass/Vol] 8.8 mg/dL 8.5-10.1 [facility] Serum or plasma creatinine m easurement (mass/volume)Ordered By: Adam Ferraro on 12-10-2022 Creatinine [Mass/Vol] 1.79 mg/dL 0.70-1.30 [facility] Comment on above: The validity of the calculated GFR & GFRAA in patients over 70 years has not been determined. Clinical correlation is essential. Serum or plasma urea nitroge n measurement (mass/volume)Ordered By: Adam Ferraro on 12-10-2022 Urea nitrogen [Mass/Vol] 18 mg/dL 7-18 [facility] Urine creatinine measurement (mass/volume)Ordered By: Adam Ferraro on 11-17-2022 Creatinine (U) [Mass/Vol] 74.70 mg/dL NO RANGE EST. [facility] Urine protein measurement (m ass/volume)Ordered By: Adam Ferraro on 11-17-2022 Protein (U) [Mass/Vol] 16.5 mg/dL 0.0-11.8 [facility] Urine protein/creatinine mas s ratioOrdered By: Adam Ferraro on 11-17-2022 Protein/Creatinine (U) [Mass ratio] 221 mg/g CRE 0-200 [facility] Absolute lymphocyte countOrd ered By: Alfredo Phipps on 11-12-2022 Lymphocytes Auto (Unsp spec) [#/Vol] 2.11 10*3/uL 0.83-4.51 [facility] Basophil percentageOrdered B y: Alfredo Phipps on 11-12-2022 Basophil percentage 3.3 mg/dL 2.5-4.9 [facility] Basophils/100 WBC (Bld) 0.7 % 0-1 [facility] Chloride [Moles/Vol] 106 mmol/L 98-107 [facility] Eosinophils/100 WBC (Bld) 2.4 % 0-5 [facility] Glucose [Mass/Vol] 169 mg/dL 74-106 [facility] Comment on above: Fasting Glucose resu lt greater than or equal to 126 mg/dL suggests DIABETES MELLITUS per A.D.A. criteria. Neutrophils (Bld) [#/Vol] 6.1 10*3/uL 2.0-7.7 [facility] Neutrophils/100 WBC (Bld) 63.5 % 47-70 [facility] Potassium [Moles/Vol] 3.5 mmol/L 3.5-5.1 [facility] Sodium [Moles/Vol] 138 mmol/L 136-145 [facility] WBC (Bld) [#/Vol] 9.6 10*3/uL 4.4-11.0 [facility] Blood erythrocytes count (nu mber/volume)Ordered By: Alfredo Phipps on 11-12-2022 RBC (Bld) [#/Vol] 4.67 10*6/uL 4.6-6.2 [facility] Blood hemoglobin measurement (mass/volume)Ordered By: Alfredo Phipps on 11-12-2022 Hemoglobin (Bld) [Mass/Vol] 13.9 g/dL 13.0-16.5 [facility] Blood lymphocytes/100 leukoc ytesOrdered By: Alfredo Phipps on 11-12-2022 Lymphocytes/100 WBC (Bld) 21.9 % 19-41 [facility] Blood monocytes/100 leukocyt esOrdered By: Alfredo Phipps on 11-12-2022 Monocytes/100 WBC (Bld) 10.8 % 0-10 [facility] Blood platelet mean volumeOr dered By: Alfredo Phipps on 11-12-2022 Platelet mean volume (Bld) [Entitic vol] 9.8 fL 6.2-12.0 [facility] Determination of erythrocyte mean corpuscular volume (MCV)Ordered By: Alfredo Phipps on 11-12-2022 MCV (RBC) [Entitic vol] 89.1 fL 80-94 [facility] Hematocrit Auto (Bld) [Volum e fraction]Ordered By: Alfredo Phipps on 11-12-2022 Hematocrit (Bld) [Volume fraction] 41.6 % 40-54 [facility] - Chemistry and C hemistry - challengeOrdered By: Alfredo Phipps on 11-12-2022 CO2 [Moles/Vol] 25.0 mmol/L 21.0-32.0 [facility] Urea nitrogen/Creatinine [Mass ratio] 11.4 mg/mg 10-20 [facility] - Hematology and Cell countsOrdered By: Alfredo Phipps on 11-12-2022 Erythrocyte distribution width (RBC) [Entitic vol] 43.2 fL 35.1-43.9 [facility] Erythrocyte distribution width (RBC) [Ratio] 13.2 % 11.6-14.6 [facility] Immature granulocytes/100 WBC (Bld) 0.700 % 0.0-0.9 [facility] Comment on above: IG% - Immature Granu locytes (promyelocytes, myelocytes and metamyelocytes) > 1% indicates that a LEFT SHIFT is Present. MCH (RBC) [Entitic mass] 29.8 pg 27.0-32.0 [facility] Nucleated RBC/[facility] [Mass/Vol]Or dered By: Alfredo Phipps on 11-12-2022 MCHC (RBC) [Mass/Vol] 33.4 g/dL 32-36 [facility] No Panel InformationOrdered By: Alfredo Phipps on 11-12-2022 Estimated GFR (MDRD) Amer 48 mL/min >60 [facility] Comment on above: GFR Calc Estimated GFR (MDRD) Non-Af Amer 40 mL/min >60 [facility] Comment on above: Non- GFR Calc [place] Level 0.40 mmol/L 0.60-1.20 [facility] Platelets bldOrdered By: Jennifer Phipps on 11-12-2022 Platelets (Bld) [#/Vol] 200 10*3/uL 150-450 [facility] Serum or plasma albumin you urement (mass/volume)Ordered By: Alfredo Phipps on 11-12-2022 Albumin [Mass/Vol] 2.9 g/dL 3.2-5.0 [facility] Serum or plasma calcium you urement (mass/volume)Ordered By: Alfredo Phipps on 11-12-2022 Calcium [Mass/Vol] 8.7 mg/dL 8.5-10.1 [facility] Serum or plasma creatinine m easurement (mass/volume)Ordered By: Alfredo Phipps on 11-12-2022 Creatinine [Mass/Vol] 1.85 mg/dL 0.70-1.30 [facility] Comment on above: The validity of the calculated GFR & GFRAA in patients over 70 years has not been determined. Clinical correlation is essential. Serum or plasma urea nitroge n measurement (mass/volume)Ordered By: Alfredo Phipps on 11-12-2022 Urea nitrogen [Mass/Vol] 21 mg/dL 7-18 [facility] Serum or plasma uric acid me asurement (mass/volume)Ordered By: Alfredo Phipps on 10-27-2022 Urate [Mass/Vol] 6.4 mg/dL 3.5-7.2 [facility] Comment on above: The drugs N-Acetylcy steine and Metamizole may falsely depress this assay. Absolute lymphocyte countOrd ered By: Alfredo Phipps on 10-15-2022 Lymphocytes Auto (Unsp spec) [#/Vol] 2.30 10*3/uL 0.83-4.51 [facility] Basophil percentageOrdered B y: Alfredo Phipps on 10-15-2022 Basophil percentage 4.2 mg/dL 2.5-4.9 [facility] Basophils/100 WBC (Bld) 1.0 % 0-1 [facility] Chloride [Moles/Vol] 108 mmol/L 98-107 [facility] Eosinophils/100 WBC (Bld) 3.2 % 0-5 [facility] Glucose [Mass/Vol] 168 mg/dL 74-106 [facility] Comment on above: Fasting Glucose resu lt greater than or equal to 126 mg/dL suggests DIABETES MELLITUS per A.D.A. criteria. Neutrophils (Bld) [#/Vol] 4.8 10*3/uL 2.0-7.7 [facility] Neutrophils/100 WBC (Bld) 58.3 % 47-70 [facility] Potassium [Moles/Vol] 4.1 mmol/L 3.5-5.1 [facility] Comment on above: Slight Hemolysis, Re sult may be falsely increased. Sodium [Moles/Vol] 140 mmol/L 136-145 [facility] WBC (Bld) [#/Vol] 8.3 10*3/uL 4.4-11.0 [facility] Blood erythrocytes count (nu mber/volume)Ordered By: Alfredo Phipps on 10-15-2022 RBC (Bld) [#/Vol] 4.81 10*6/uL 4.6-6.2 [facility] Blood hemoglobin measurement (mass/volume)Ordered By: Alfredo Phipps on 10-15-2022 Hemoglobin (Bld) [Mass/Vol] 13.9 g/dL 13.0-16.5 [facility] Blood lymphocytes/100 leukoc ytesOrdered By: Alfredo Phipps on 10-15-2022 Lymphocytes/100 WBC (Bld) 27.6 % 19-41 [facility] Blood monocytes/100 leukocyt esOrdered By: Alfredo Phipps on 10-15-2022 Monocytes/100 WBC (Bld) 9.1 % 0-10 [facility] Blood platelet mean volumeOr dered By: Alfredo Phipps on 10-15-2022 Platelet mean volume (Bld) [Entitic vol] 10.1 fL 6.2-12.0 [facility] Determination of erythrocyte mean corpuscular volume (MCV)Ordered By: Alfredo Phipps on 10-15-2022 MCV (RBC) [Entitic vol] 89.4 fL 80-94 [facility] Hematocrit Auto (Bld) [Volum e fraction]Ordered By: Alfredo Phipps on 10-15-2022 Hematocrit (Bld) [Volume fraction] 43.0 % 40-54 [facility] - Chemistry and C hemistry - challengeOrdered By: Alfredo Phipps on 10-15-2022 CO2 [Moles/Vol] 28.0 mmol/L 21.0-32.0 [facility] Urea nitrogen/Creatinine [Mass ratio] 11.3 mg/mg 10-20 [facility] - Hematology and Cell countsOrdered By: Alfredo Phipps on 10-15-2022 Erythrocyte distribution width (RBC) [Entitic vol] 42.9 fL 35.1-43.9 [facility] Erythrocyte distribution width (RBC) [Ratio] 13.2 % 11.6-14.6 [facility] Immature granulocytes/100 WBC (Bld) 0.800 % 0.0-0.9 [facility] Comment on above: IG% - Immature Granu locytes (promyelocytes, myelocytes and metamyelocytes) > 1% indicates that a LEFT SHIFT is Present. MCH (RBC) [Entitic mass] 28.9 pg 27.0-32.0 [facility] Nucleated RBC/100 WBC (Bld) [Ratio] 0 % 0-5 [facility] MCHC Auto (RBC) [Mass/Vol]Or dered By: Alfredo Phipps on 10-15-2022 MCHC (RBC) [Mass/Vol] 32.3 g/dL 32-36 [facility] No Panel InformationOrdered By: Alfredo Phipps on 10-15-2022 Estimated GFR (MDRD) Amer 46 mL/min >60 [facility] Comment on above: GFR Calc Estimated GFR (MDRD) Non-Af Amer 38 mL/min >60 [facility] Comment on above: Non- GFR Calc [place] Level 0.50 mmol/L 0.60-1.20 [facility] Platelets bldOrdered By: Jennifer Phipps on 10-15-2022 Platelets (Bld) [#/Vol] 200 10*3/uL 150-450 [facility] Serum or plasma albumin you urement (mass/volume)Ordered By: Alfredo Phipps on 10-15-2022 Albumin [Mass/Vol] 2.9 g/dL 3.2-5.0 [facility] Serum or plasma calcium you urement (mass/volume)Ordered By: Alfredo Phipps on 10-15-2022 Calcium [Mass/Vol] 9.1 mg/dL 8.5-10.1 [facility] Serum or plasma creatinine m easurement (mass/volume)Ordered By: Alfredo Phipps on 10-15-2022 Creatinine [Mass/Vol] 1.94 mg/dL 0.70-1.30 [facility] Comment on above: The validity of the calculated GFR & GFRAA in patients over 70 years has not been determined. Clinical correlation is essential. Serum or plasma urea nitroge n measurement (mass/volume)Ordered By: Alfredo Phipps on 10-15-2022 Urea nitrogen [Mass/Vol] 22 mg/dL 7-18 [facility] Serum or plasma uric acid me asurement (mass/volume)Ordered By: Alfredo Phipps on 09-27-2022 Urate [Mass/Vol] 7.0 mg/dL 3.5-7.2 [facility] Comment on above: The drugs N-Acetylcy steine and Metamizole may falsely depress this assay. Absolute lymphocyte countOrd ered By: Adam Ferraro on 09-17-2022 Lymphocytes Auto (Unsp spec) [#/Vol] 2.69 10*3/uL 0.83-4.51 [facility] Basophil percentageOrdered B y: Adam Ferraro on 09-17-2022 Basophil percentage 3.8 mg/dL 2.5-4.9 [facility] Basophils/100 WBC (Bld) 0.9 % 0-1 [facility] Chloride [Moles/Vol] 105 mmol/L 98-107 [facility] Eosinophils/100 WBC (Bld) 3.2 % 0-5 [facility] Glucose [Mass/Vol] 141 mg/dL 74-106 [facility] Comment on above: Fasting Glucose resu lt greater than or equal to 126 mg/dL suggests DIABETES MELLITUS per A.D.A. criteria. Neutrophils (Bld) [#/Vol] 5.1 10*3/uL 2.0-7.7 [facility] Neutrophils/100 WBC (Bld) 56.1 % 47-70 [facility] Potassium [Moles/Vol] 3.8 mmol/L 3.5-5.1 [facility] Sodium [Moles/Vol] 139 mmol/L 136-145 [facility] WBC (Bld) [#/Vol] 9.0 10*3/uL 4.4-11.0 [facility] Blood erythrocytes count (nu mber/volume)Ordered By: Adam Ferraro on 09-17-2022 RBC (Bld) [#/Vol] 4.99 10*6/uL 4.6-6.2 [facility] Blood hemoglobin measurement (mass/volume)Ordered By: Adam Ferraro on 09-17-2022 Hemoglobin (Bld) [Mass/Vol] 14.8 g/dL 13.0-16.5 [facility] Blood lymphocytes/100 leukoc ytesOrdered By: Adam Ferraro on 09-17-2022 Lymphocytes/100 WBC (Bld) 29.8 % 19-41 [facility] Blood monocytes/100 leukocyt esOrdered By: Adam Ferraro on 09-17-2022 Monocytes/100 WBC (Bld) 9.4 % 0-10 [facility] Blood platelet mean volumeOr dered By: Adam Ferraro on 09-17-2022 Platelet mean volume (Bld) [Entitic vol] 10.2 fL 6.2-12.0 [facility] Determination of erythrocyte mean corpuscular volume (MCV)Ordered By: Adam Ferraro on 09-17-2022 MCV (RBC) [Entitic vol] 88.6 fL 80-94 [facility] Hematocrit Auto (Bld) [Volum e fraction]Ordered By: Adam Ferraro on 09-17-2022 Hematocrit (Bld) [Volume fraction] 44.2 % 40-54 [facility] - Chemistry and C hemistry - challengeOrdered By: Adam Ferraro on 09-17-2022 CO2 [Moles/Vol] 26.0 mmol/L 21.0-32.0 [facility] Urea nitrogen/Creatinine [Mass ratio] 11.4 mg/mg 10-20 [facility] Laboratory - Hematology and Cell countsOrdered By: Adam Ferraro on 09-17-2022 Erythrocyte distribution width (RBC) [Entitic vol] 42.8 fL 35.1-43.9 [facility] Erythrocyte distribution width (RBC) [Ratio] 13.2 % 11.6-14.6 [facility] Immature granulocytes/100 WBC (Bld) 0.600 % 0.0-0.9 [facility] Comment on above: IG% - Immature Granu locytes (promyelocytes, myelocytes and metamyelocytes) > 1% indicates that a LEFT SHIFT is Present. MCH (RBC) [Entitic mass] 29.7 pg 27.0-32.0 [facility] Nucleated RBC/100 WBC (Bld) [Ratio] 0 % 0-5 [facility] MCHC Auto (RBC) [Mass/Vol]Or dered By: Adam Ferraro on 09-17-2022 MCHC (RBC) [Mass/Vol] 33.5 g/dL 32-36 [facility] No Panel InformationOrdered By: Adam Ferraro on 09-17-2022 [place] Level 0.50 mmol/L 0.60-1.20 [facility] Estimated GFR (MDRD) Amer 51 mL/min >60 [facility] Comment on above: GFR Calc Estimated GFR (MDRD) Non-Af Amer 42 mL/min >60 [facility] Comment on above: Non- GFR Calc Platelets bldOrdered By: Benoit Ferraro on 09-17-2022 Platelets (Bld) [#/Vol] 178 10*3/uL 150-450 [facility] Serum or plasma albumin you urement (mass/volume)Ordered By: Adam Ferraro on 09-17-2022 Albumin [Mass/Vol] 3.0 g/dL 3.2-5.0 [facility] Serum or plasma calcium you urement (mass/volume)Ordered By: Adam Ferraro on 09-17-2022 Calcium [Mass/Vol] 9.0 mg/dL 8.5-10.1 [facility] Serum or plasma creatinine m easurement (mass/volume)Ordered By: Adam Ferraro on 09-17-2022 Creatinine [Mass/Vol] 1.76 mg/dL 0.70-1.30 [facility] Comment on above: The validity of the calculated GFR & GFRAA in patients over 70 years has not been determined. Clinical correlation is essential. Serum or plasma urea nitroge n measurement (mass/volume)Ordered By: Adam Ferraro on 09-17-2022 Urea nitrogen [Mass/Vol] 20 mg/dL 7-18 [facility] Urine creatinine measurement (mass/volume)Ordered By: Adam Ferraro on 09-17-2022 Creatinine (U) [Mass/Vol] 128.00 mg/dL NO RANGE EST. [facility] Urine protein measurement (m ass/volume)Ordered By: Adam Ferraro on 09-17-2022 Protein (U) [Mass/Vol] 20.9 mg/dL 0.0-11.8 [facility] Urine protein/creatinine mas s ratioOrdered By: Adam Ferraro on 09-17-2022 Protein/Creatinine (U) [Mass ratio] 163 mg/g CRE 0-200 [facility] Serum or plasma uric acid me asurement (mass/volume)Ordered By: Adam Ferraro on 08-27-2022 Urate [Mass/Vol] 6.4 mg/dL 3.5-7.2 [facility] Comment on above: The drugs N-Acetylcy steine and Metamizole may falsely depress this assay. No Panel InformationOrdered By: Adam Ferraro on 08-23-2022 [place] Level 0.40 mmol/L 0.60-1.20 [facility] Culture, urineOrdered By: Chan Fiore on 08-15-2022 Bacteria identified Cx Nom (U) Streptococcus mitis [facility] Absolute lymphocyte countOrd ered By: Alfredo Phipps on 08-12-2022 Lymphocytes Auto (Unsp spec) [#/Vol] 2.09 10*3/uL 0.83-4.51 [facility] Basophil percentageOrdered B y: Alfredo Phipps on 08-12-2022 Basophil percentage 3.6 mg/dL 2.5-4.9 [facility] Basophils/100 WBC (Bld) 0.9 % 0-1 [facility] Chloride [Moles/Vol] 107 mmol/L 98-107 [facility] Eosinophils/100 WBC (Bld) 2.8 % 0-5 [facility] Glucose [Mass/Vol] 151 mg/dL 74-106 [facility] Comment on above: Fasting Glucose resu lt greater than or equal to 126 mg/dL suggests DIABETES MELLITUS per A.D.A. criteria. Neutrophils (Bld) [#/Vol] 5.5 10*3/uL 2.0-7.7 [facility] Neutrophils/100 WBC (Bld) 63.4 % 47-70 [facility] Potassium [Moles/Vol] 4.0 mmol/L 3.5-5.1 [facility] Sodium [Moles/Vol] 140 mmol/L 136-145 [facility] WBC (Bld) [#/Vol] 8.7 10*3/uL 4.4-11.0 [facility] Basophil percentage 10-25 SEEN /hpf 0-5 [facility] Bilirubin Test strip Ql (U)O rdered By: Alfredo Phipps on 08-12-2022 Bilirubin Ql (U) Negative Negative [facility] Blood erythrocytes count (nu mber/volume)Ordered By: Alfredo Phipps on 08-12-2022 RBC (Bld) [#/Vol] 4.92 10*6/uL 4.6-6.2 [facility] Blood hemoglobin measurement (mass/volume)Ordered By: Alfredo Phipps on 08-12-2022 Hemoglobin (Bld) [Mass/Vol] 14.5 g/dL 13.0-16.5 [facility] Blood lymphocytes/100 leukoc ytesOrdered By: Alfredo Phipps on 08-12-2022 Lymphocytes/100 WBC (Bld) 24.1 % 19-41 [facility] Blood monocytes/100 leukocyt esOrdered By: Alfredo Phipps on 08-12-2022 Monocytes/100 WBC (Bld) 8.3 % 0-10 [facility] Blood platelet mean volumeOr dered By: Alfredo Phipps on 08-12-2022 Platelet mean volume (Bld) [Entitic vol] 9.8 fL 6.2-12.0 [facility] Determination of erythrocyte mean corpuscular volume (MCV)Ordered By: Alfredo Phipps on 08-12-2022 MCV (RBC) [Entitic vol] 91.1 fL 80-94 [facility] Hematocrit Auto (Bld) [Volum e fraction]Ordered By: Alfredo Phipps on 08-12-2022 Hematocrit (Bld) [Volume fraction] 44.8 % 40-54 [facility] Ketones Test strip Ql (U)Ord ered By: Alfredo Phipps on 08-12-2022 Ketones Ql (U) Negative Negative [facility] Laboratory - Chemistry and C hemistry - challengeOrdered By: Alfredo Phipps on 08-12-2022 CO2 [Moles/Vol] 25.0 mmol/L 21.0-32.0 [facility] Urea nitrogen/Creatinine [Mass ratio] 14.9 mg/mg 10-20 [facility] Laboratory - Hematology and Cell countsOrdered By: Alfredo Phipps on 08-12-2022 Erythrocyte distribution width (RBC) [Entitic vol] 43.3 fL 35.1-43.9 [facility] Erythrocyte distribution width (RBC) [Ratio] 12.9 % 11.6-14.6 [facility] Immature granulocytes/100 WBC (Bld) 0.500 % 0.0-0.9 [facility] Comment on above: IG% - Immature Granu locytes (promyelocytes, myelocytes and metamyelocytes) > 1% indicates that a LEFT SHIFT is Present. MCH (RBC) [Entitic mass] 29.5 pg 27.0-32.0 [facility] Nucleated RBC/100 WBC (Bld) [Ratio] 0 % 0-5 [facility] MCHC Auto (RBC) [Mass/Vol]Or dered By: Alfredo Phipps on 08-12-2022 MCHC (RBC) [Mass/Vol] 32.4 g/dL 32-36 [facility] Mucus LM Ql (Urine sed)Order ed By: Alfredo Phipps on 08-12-2022 Mucus Ql (Urine sed) Not Reportable [facility] Nitrite Test strip Ql (U)Ord ered By: Alfredo Phipps on 08-12-2022 Nitrite Ql (U) Negative Negative [facility] No Panel InformationOrdered By: Alfredo Phipps on 08-12-2022 Estimated GFR (MDRD) Amer 54 mL/min >60 [facility] Comment on above: GFR Calc Estimated GFR (MDRD) Non-Af Amer 45 mL/min >60 [facility] Comment on above: Non- GFR Calc Platelets bldOrdered By: Pet er Desire on 08-12-2022 Platelets (Bld) [#/Vol] 238 10*3/uL 150-450 [facility] Protein Test strip Ql (U)Ord ered By: Alfredo Phipps on 08-12-2022 Protein Ql (U) 15 mg/dl Negative [facility] Serum or plasma albumin you urement (mass/volume)Ordered By: Alfredo Phipps on 08-12-2022 Albumin [Mass/Vol] 2.9 g/dL 3.2-5.0 [facility] Serum or plasma calcium you urement (mass/volume)Ordered By: Alfredo Phipps on 08-12-2022 Calcium [Mass/Vol] 9.2 mg/dL 8.5-10.1 [facility] Serum or plasma creatinine m easurement (mass/volume)Ordered By: Alfredo Phipps on 08-12-2022 Creatinine [Mass/Vol] 1.68 mg/dL 0.70-1.30 [facility] Comment on above: The validity of the calculated GFR & GFRAA in patients over 70 years has not been determined. Clinical correlation is essential. Serum or plasma urea nitroge n measurement (mass/volume)Ordered By: Alfredo Phipps on 08-12-2022 Urea nitrogen [Mass/Vol] 25 mg/dL 7-18 [facility] Squamous epithelial cells de tection in urine sediment by light microscopyOrdered By: Alfredo Phipps on 08-12-2022 Epithelial cells.squamous LM Ql (Urine sed) 0-5 SEEN /hpf 0-5 [facility] Urine blood detectionOrdered By: Alfredo Phipps on 08-12-2022 RBC Ql (U) Negative Negative [facility] RBC Ql (U) 0 SEEN /hpf 0-5 [facility] Urine clarityOrdered By: Pet er Raynaros on 08-12-2022 Clarity (U) Clear Clear [facility] Urine color determinationOrd ered By: Alfredo Phipps on 08-12-2022 Color (U) Yellow Yellow [facility] Urine creatinine measurement (mass/volume)Ordered By: Alfredo Phipps on 08-12-2022 Creatinine (U) [Mass/Vol] 102.00 mg/dL NO RANGE EST. [facility] Urine glucose detectionOrder ed By: Alfredo Phipps on 08-12-2022 Glucose Ql (U) Normal mg/dl Normal [facility] Urine leukocyte esterase det ection by dipstickOrdered By: Alfredo Phipps on 08-12-2022 Leukocyte esterase Test strip Ql (U) 500 /ul Negative [facility] Urine pHOrdered By: Alfredo saha on 08-12-2022 pH (U) 6.0 [pH] 5.0 - 8.0 [facility] Urine protein measurement (m ass/volume)Ordered By: Alfredo Phipps on 08-12-2022 Protein (U) [Mass/Vol] 19.9 mg/dL 0.0-11.8 [facility] Urine protein/creatinine mas s ratioOrdered By: Alfredo Phipps on 08-12-2022 Protein/Creatinine (U) [Mass ratio] 195 mg/g CRE 0-200 [facility] Urine sediment bacteria coun t by microscopy (number/high power field)Ordered By: Alfredo Phipps on 08-12-2022 Bacteria LM.HPF (Urine sed) [#/Area] RARE /hpf None Seen [facility] Urine specific gravity measu rementOrdered By: Alfredo Phipps on 08-12-2022 Specific gravity (U) [Rel density] 1.015 1.002-1.03 0 [facility] Urobilinogen Auto test strip Ql (U)Ordered By: Alfredo Phipps on 08-12-2022 Urobilinogen Ql (U) Normal mg/dl Normal [facility] No Panel Informationon 07-28 [place] Level 0.60 mmol/L 0.60-1.20 [facility] Work Phone: Serum or plasma uric acid me asurement (mass/volume)on 07-28-2022 Urate [Mass/Vol] 6.3 mg/dL 3.5-7.2 [facility] Work Phone: Comment on above: The drugs N-Acetylcy steine and Metamizole may falsely depress this assay. URINALYSIS, REFLEX MICROSCOP ICon 07-27-2022 Bilirubin Ql (U) Negative Negative [facility] Clarity (Unsp spec) Clear Clear [facility] Color (U) Colorless Yellow [facility] Glucose Test strip (U) [Mass/Vol] Negative Negative [facility] Hemoglobin Ql (U) Negative Negative [facility] Ketones Ql (U) Negative Negative [facility] Leukocyte esterase Test strip Ql (U) Negative Negative [facility] Nitrite Ql (U) Negative Negative [facility] pH (U) 6.5 [pH] 5.0 - 8.0 [facility] Protein (U) [Mass/Vol] Negative Negative [facility] Specific gravity (U) [Rel density] 1.009 1.005 - 1.030 [facility] Urobilinogen Ql (U) Negative Negative [facility] Absolute lymphocyte counton 07-15-2022 Lymphocytes Auto (Unsp spec) [#/Vol] 1.93 10*3/uL 0.83-4.51 [facility] Work Phone: Basophil percentageon 2021 Basophil percentage 3.9 mg/dL 2.5-4.9 [facility] Work Phone: [phone] Basophils/100 WBC (Bld) 1.3 % 0-1 [facility] Work Phone: [phone] Chloride [Moles/Vol] 107 mmol/L 98-107 [facility] Work Phone: Eosinophils/100 WBC (Bld) 1.7 % 0-5 [facility] Work Phone: [phone] Glucose [Mass/Vol] 126 mg/dL 74-106 [facility] Work Phone: [phone] Comment on above: Fasting Glucose resu lt greater than or equal to 126 mg/dL suggests DIABETES MELLITUS per A.D.A. criteria. Neutrophils (Bld) [#/Vol] 6.1 10*3/uL 2.0-7.7 [facility] Work Phone: Neutrophils/100 WBC (Bld) 66.5 % 47-70 [facility] Work Phone: Potassium [Moles/Vol] 4.4 mmol/L 3.5-5.1 [facility] Work Phone: Sodium [Moles/Vol] 139 mmol/L 136-145 [facility] Work Phone: WBC (Bld) [#/Vol] 9.2 10*3/uL 4.4-11.0 [facility] Work Phone: Bilirubin Test strip Ql (U)o n 07-15-2022 Bilirubin Ql (U) Negative Negative [facility] Work Phone: [phone] Blood erythrocytes count (nu mber/volume)on 07-15-2022 RBC (Bld) [#/Vol] 5.01 10*6/uL 4.6-6.2 [facility]: [phone] Blood hemoglobin measurement (mass/volume)on 07-15-2022 Hemoglobin (Bld) [Mass/Vol] 14.8 g/dL 13.0-16.5 [facility] Work Phone: Blood lymphocytes/100 leukoc yteson 07-15-2022 Lymphocytes/100 WBC (Bld) 20.9 % 19-41 [facility] Work Phone: Blood monocytes/100 leukocyt eson 07-15-2022 Monocytes/100 WBC (Bld) 8.9 % 0-10 [facility] Work Phone: Blood platelet mean volumeon 07-15-2022 Platelet mean volume (Bld) [Entitic vol] 9.7 fL 6.2-12.0 [facility] Work Phone: Determination of erythrocyte mean corpuscular volume (MCV)on 07-15-2022 MCV (RBC) [Entitic vol] 91.8 fL 80-94 [facility] Work Phone: Hematocrit Auto (Bld) [Volum e fraction]on 07-15-2022 Hematocrit (Bld) [Volume fraction] 46.0 % 40-54 [facility] Work Phone: Ketones Test strip Ql (U)on 07-15-2022 Ketones Ql (U) Negative Negative [facility] Work Phone: Laboratory - Chemistry and C hemistry - challengeon 07-15-2022 CO2 [Moles/Vol] 25.0 mmol/L 21.0-32.0 [facility] Work Phone: Urea nitrogen/Creatinine [Mass ratio] 14.9 mg/mg 10-20 [facility] Work Phone: Laboratory - Hematology and Cell countson 07-15-2022 Erythrocyte distribution width (RBC) [Entitic vol] 44.0 fL 35.1-43.9 [facility] Work Phone: Erythrocyte distribution width (RBC) [Ratio] 13.1 % 11.6-14.6 [facility] Work Phone: Immature granulocytes/100 WBC (Bld) 0.700 % 0.0-0.9 [facility] Work Phone: Comment on above: IG% - Immature Granu locytes (promyelocytes, myelocytes and metamyelocytes) > 1% indicates that a LEFT SHIFT is Present. MCH (RBC) [Entitic mass] 29.5 pg 27.0-32.0 [facility] Work Phone: Nucleated RBC/100 WBC (Bld) [Ratio] 0 % 0-5 [facility] Work Phone: MCHC Auto (RBC) [Mass/Vol]on 07-15-2022 MCHC (RBC) [Mass/Vol] 32.2 g/dL 32-36 [facility] Work Phone: Nitrite Test strip Ql (U)on 07-15-2022 Nitrite Ql (U) Negative Negative [facility] Work Phone: No Panel Informationon 07-15 Estimated GFR (MDRD) Amer 54 mL/min >60 [facility] Work Phone: Comment on above: GFR Calc Estimated GFR (MDRD) Non-Af Amer 45 mL/min >60 [facility] Work Phone: Comment on above: Non- GFR Calc Platelets bldon 07-15-2022 Platelets (Bld) [#/Vol] 231 10*3/uL 150-450 [facility] Work Phone: Protein Test strip Ql (U)on 07-15-2022 Protein Ql (U) 30 mg/dl Negative [facility] Work Phone: Serum or plasma albumin you urement (mass/volume)on 07-15-2022 Albumin [Mass/Vol] 3.1 g/dL 3.2-5.0 [facility] Work Phone: Serum or plasma calcium you urement (mass/volume)on 07-15-2022 Calcium [Mass/Vol] 8.6 mg/dL 8.5-10.1 [facility] Work Phone: Serum or plasma creatinine m easurement (mass/volume)on 07-15-2022 Creatinine [Mass/Vol] 1.68 mg/dL 0.70-1.30 [facility] Work Phone: Comment on above: The validity of the calculated GFR & GFRAA in patients over 70 years has not been determined. Clinical correlation is essential. Serum or plasma urea nitroge n measurement (mass/volume)on 07-15-2022 Urea nitrogen [Mass/Vol] 25 mg/dL 7-18 [facility] Work Phone: Urine blood detectionon - RBC Ql (U) Negative Negative [facility] Work Phone: Urine clarityon 07-15-2022 Clarity (U) Sl. Cloudy Clear [facility] Work Phone: Urine color determinationon 07-15-2022 Color (U) Yellow Yellow [facility] Work Phone: Urine creatinine measurement (mass/volume)on 07-15-2022 Creatinine (U) [Mass/Vol] 114.00 mg/dL NO RANGE EST. [facility] Work Phone: [phone] Urine glucose detectionon Glucose Ql (U) Normal mg/dl Normal [facility] Work Phone: [phone] Urine leukocyte esterase det ection by dipstickon 07-15-2022 Leukocyte esterase Test strip Ql (U) 100 /ul Negative [facility] Work Phone: Urine pHon 07-15-2022 pH (U) 6.0 [pH] 5.0 - 8.0 [facility] Work Phone: [phone] Urine protein measurement (m ass/volume)on 07-15-2022 Protein (U) [Mass/Vol] 26.5 mg/dL 0.0-11.8 [facility] Work Phone: [phone] Urine protein/creatinine mas s ratioon 07-15-2022 Protein/Creatinine (U) [Mass ratio] 232 mg/g CRE 0-200 [facility] Work Phone: Urine specific gravity measu rementon 07-15-2022 Specific gravity (U) [Rel density] 1.015 1.002-1.03 0 [facility] Work Phone: [phone] Urobilinogen Auto test strip Ql (U)on 07-15-2022 Urobilinogen Ql (U) Normal mg/dl Normal [facility] Work Phone: Basophil percentageon 2021 Cholesterol [Mass/Vol] 149 mg/dL <200 [facility] Work Phone: Comment on above: <200 mg/dL Desirable 200-240 mg/dL Borderline >240 mg/dL High Risk Triglyceride [Mass/Vol] 379 mg/dL <199 [facility] Work Phone: Comment on above: The drugs N-Acetylcy steine and Metamizole may falsely depress this assay.Serum Triglycerides Reference Interval Normal <150 mg/dL Borderline high 150 - 199 mg/dL High 200 - 499 mg/dL Very High > or = 500 mg/dL No Panel Informationon 06-28 [place] Level 0.40 mmol/L 0.60-1.20 [facility] Work Phone: Serum or plasma cholesterol in HDL measurement (mass/volume)on 06-28-2022 Cholesterol in HDL [Mass/Vol] 34 mg/dL >40 [facility] Work Phone: Comment on above: The drugs N-Acetylcy steine and Metamizole may falsely depress this assay. Reference Range HDL <40 mg/dL Low HDL Cholesterol HDL >or= 60 mg/dL High HDL Cholesterol Serum or plasma cholesterol in VLDL measurement (mass/volume)on 06-28-2022 Cholesterol in VLDL [Mass/Vol] 76 mg/dL 5-40 [facility] Work Phone: Serum or plasma low density lipoprotein (LDL) cholesterol measurement (mass/volume)on 06-28-2022 Cholesterol in LDL [Mass/Vol] 39 mg/dL 0-130 [facility] Work Phone: Serum or plasma uric acid me asurement (mass/volume)on 06-28-2022 Urate [Mass/Vol] 5.9 mg/dL 3.5-7.2 [facility] Work Phone: Comment on above: The drugs N-Acetylcy steine and Metamizole may falsely depress this assay. Absolute lymphocyte counton 06-17-2022 Lymphocytes Auto (Unsp spec) [#/Vol] 2.02 10*3/uL 0.83-4.51 [facility] Work Phone: [phone] Basophil percentageon 2021 Basophil percentage 0-5 SEEN /hpf 0-5 [facility] Work Phone: [phone] Basophil percentage 3.8 mg/dL 2.5-4.9 [facility] Work Phone: Basophils/100 WBC (Bld) 0.8 % 0-1 [facility] Work Phone: [phone] Chloride [Moles/Vol] 108 mmol/L 98-[address] [facility] [address] [facility] Work Phone: Eosinophils/100 WBC (Bld) 2.9 % 0-5 [facility] Work Phone: [phone] Glucose [Mass/Vol] 133 mg/dL 74-106 [facility] Work Phone: [phone] Comment on above: Fasting Glucose resu lt greater than or equal to 126 mg/dL suggests DIABETES MELLITUS per A.D.A. criteria. Neutrophils (Bld) [#/Vol] 5.3 10*3/uL 2.0-7.7 [facility] Work Phone: [phone] Neutrophils/100 WBC (Bld) 61.6 % 47-70 [facility] Work Phone: [phone] Potassium [Moles/Vol] 3.8 mmol/L 3.5-5.1 [facility] Work Phone: [phone] Sodium [Moles/Vol] 140 mmol/L 136-145 [facility] Work Phone: [phone] WBC (Bld) [#/Vol] 8.6 10*3/uL 4.4-11.0 [facility] Work Phone: [phone] Bilirubin Test strip Ql (U)o n 06-17-2022 Bilirubin Ql (U) Negative Negative [facility] Work Phone: [phone] Blood erythrocytes count (nu mber/volume)on 06-17-2022 RBC (Bld) [#/Vol] 4.46 10*6/uL 4.6-6.2 [facility] Work Phone: [phone] Blood hemoglobin measurement (mass/volume)on 06-17-2022 Hemoglobin (Bld) [Mass/Vol] 13.4 g/dL 13.0-16.5 [facility] Work Phone: Blood lymphocytes/100 leukoc yteson 06-17-2022 Lymphocytes/100 WBC (Bld) 23.5 % 19-41 [facility] Work Phone: Blood monocytes/100 leukocyt eson 06-17-2022 Monocytes/100 WBC (Bld) 10.0 % 0-10 [facility] Work Phone: [phone] Blood platelet mean volumeon 06-17-2022 Platelet mean volume (Bld) [Entitic vol] 9.6 fL 6.2-12.0 [facility] Work Phone: Determination of erythrocyte mean corpuscular volume (MCV)on 06-17-2022 MCV (RBC) [Entitic vol] 91.3 fL 80-94 [facility] Work Phone: [phone] Hematocrit Auto (Bld) [Volum e fraction]on 06-17-2022 Hematocrit (Bld) [Volume fraction] 40.7 % 40-54 [facility] Work Phone: [phone] Ketones Test strip Ql (U)on 06-17-2022 Ketones Ql (U) Negative Negative [facility] Work Phone: Laboratory - Chemistry and C hemistry - challengeon 06-17-2022 CO2 [Moles/Vol] 25.0 mmol/L 21.0-32.0 [facility] Work Phone: Urea nitrogen/Creatinine [Mass ratio] 12.6 mg/mg 10-20 [facility] Work Phone: [phone] Laboratory - Hematology and Cell countson 06-17-2022 Erythrocyte distribution width (RBC) [Entitic vol] 45.5 fL 35.1-43.9 [facility] Work Phone: [phone] Erythrocyte distribution width (RBC) [Ratio] 13.4 % 11.6-14.6 [facility] Work Phone: [phone] Immature granulocytes/100 WBC (Bld) 1.200 % 0.0-0.9 [facility] Work Phone: Comment on above: IG% - Immature Granu locytes (promyelocytes, myelocytes and metamyelocytes) > 1% indicates that a LEFT SHIFT is Present. MCH (RBC) [Entitic mass] 30.0 pg 27.0-32.0 [facility] Work Phone: [phone] Nucleated RBC/100 WBC (Bld) [Ratio] 0 % 0-5 [facility] Work Phone: [phone] MCHC Auto (RBC) [Mass/Vol]on 06-17-2022 MCHC (RBC) [Mass/Vol] 32.9 g/dL 32-36 [facility] Work Phone: Mucus LM Ql (Urine sed)on Mucus Ql (Urine sed) 0 SEEN /hpf [facility] Work Phone: Nitrite Test strip Ql (U)on 06-17-2022 Nitrite Ql (U) Negative Negative [facility] Work Phone: No Panel Informationon 06-17 Estimated GFR (MDRD) Amer 58 mL/min >60 [facility] Work Phone: Comment on above: GFR Calc Estimated GFR (MDRD) Non-Af Amer 48 mL/min >60 [facility] Work Phone: Comment on above: Non- GFR Calc Platelets bldon 06-17-2022 Platelets (Bld) [#/Vol] 178 10*3/uL 150-450 [facility] Work Phone: Protein Test strip Ql (U)on 06-17-2022 Protein Ql (U) 15 mg/dl Negative [facility] Work Phone: Serum or plasma albumin you urement (mass/volume)on 06-17-2022 Albumin [Mass/Vol] 2.8 g/dL 3.2-5.0 [facility] Work Phone: Serum or plasma calcium you urement (mass/volume)on 06-17-2022 Calcium [Mass/Vol] 8.6 mg/dL 8.5-10.1 [facility] Work Phone: Serum or plasma creatinine m easurement (mass/volume)on 06-17-2022 Creatinine [Mass/Vol] 1.59 mg/dL 0.70-1.30 [facility] Work Phone: Comment on above: The validity of the calculated GFR & GFRAA in patients over 70 years has not been determined. Clinical correlation is essential. Serum or plasma urea nitroge n measurement (mass/volume)on 06-17-2022 Urea nitrogen [Mass/Vol] 20 mg/dL 7-18 [facility] Work Phone: [phone] Squamous epithelial cells de tection in urine sediment by light microscopyon 06-17-2022 Epithelial cells.squamous LM Ql (Urine sed) 0-5 SEEN /hpf 0-5 [facility] Work Phone: [phone] Urine blood detectionon 08-0 RBC Ql (U) Negative Negative [facility] Work Phone: RBC Ql (U) 0 SEEN /hpf 0-5 [facility] Work Phone: Urine clarityon 06-17-2022 Clarity (U) Clear Clear [facility] Work Phone: [phone] Urine color determinationon 06-17-2022 Color (U) Yellow Yellow [facility] Work Phone: [phone] Urine creatinine measurement (mass/volume)on 06-17-2022 Creatinine (U) [Mass/Vol] 118.00 mg/dL NO RANGE EST. [facility] Work Phone: [phone] Urine glucose detectionon Glucose Ql (U) Normal mg/dl Normal [facility] Work Phone: [phone] Urine leukocyte esterase det ection by dipstickon 06-17-2022 Leukocyte esterase Test strip Ql (U) 100 /ul Negative [facility] Work Phone: Urine pHon 06-17-2022 pH (U) 6.0 [pH] 5.0 - 8.0 [facility] Work Phone: Urine protein measurement (m ass/volume)on 06-17-2022 Protein (U) [Mass/Vol] 22.0 mg/dL 0.0-11.8 [facility] Work Phone: [phone] Urine protein/creatinine mas s ratioon 06-17-2022 Protein/Creatinine (U) [Mass ratio] 186 mg/g CRE 0-200 [facility] Work Phone: [phone] Urine sediment bacteria coun t by microscopy (number/high power field)on 06-17-2022 Bacteria LM.HPF (Urine sed) [#/Area] 0 /[HPF] None Seen [facility] Work Phone: Urine specific gravity measu rementon 06-17-2022 Specific gravity (U) [Rel density] 1.015 1.002-1.03 0 [facility] Work Phone: Urobilinogen Auto test strip Ql (U)on 06-17-2022 Urobilinogen Ql (U) Normal mg/dl Normal [facility] Work Phone: [phone] No Panel Informationon 05-27 [place] Level 0.40 mmol/L 0.60-1.20 [facility] Work Phone: [phone] Serum or plasma uric acid me asurement (mass/volume)on 05-27-2022 Urate [Mass/Vol] 6.1 mg/dL 3.5-7.2 [facility] Work Phone: Comment on above: The drugs N-Acetylcy steine and Metamizole may falsely depress this assay. Absolute lymphocyte counton 05-20-2022 Lymphocytes Auto (Unsp spec) [#/Vol] 2.07 10*3/uL 0.83-4.51 [facility] Work Phone: Basophil percentageon 2021 Basophil percentage 3.2 mg/dL 2.5-4.9 [facility] Work Phone: [phone] Basophils/100 WBC (Bld) 0.7 % 0-1 [facility] Work Phone: [phone] Chloride [Moles/Vol] 108 mmol/L 98-107 [facility] Work Phone: Eosinophils/100 WBC (Bld) 2.5 % 0-5 [facility] Work Phone: [phone] Glucose [Mass/Vol] 149 mg/dL 74-106 [facility] Work Phone: [phone] Comment on above: Fasting Glucose resu lt greater than or equal to 126 mg/dL suggests DIABETES MELLITUS per A.D.A. criteria. Neutrophils (Bld) [#/Vol] 6.4 10*3/uL 2.0-7.7 [facility] Work Phone: Neutrophils/100 WBC (Bld) 65.6 % 47-70 [facility] Work Phone: Potassium [Moles/Vol] 3.9 mmol/L 3.5-5.1 [facility] Work Phone: Sodium [Moles/Vol] 140 mmol/L 136-145 [facility] Work Phone: WBC (Bld) [#/Vol] 9.7 10*3/uL 4.4-11.0 [facility] Work Phone: Basophil percentage 0-5 SEEN /hpf 0-5 [facility] Work Phone: [phone] Bilirubin Test strip Ql (U)o n 05-20-2022 Bilirubin Ql (U) Negative Negative [facility] Work Phone: [phone] Blood erythrocytes count (nu mber/volume)on 05-20-2022 RBC (Bld) [#/Vol] 4.36 10*6/uL 4.6-6.2 [facility] Work Phone: [phone] Blood hemoglobin measurement (mass/volume)on 05-20-2022 Hemoglobin (Bld) [Mass/Vol] 12.9 g/dL 13.0-16.5 [facility] Work Phone: Blood lymphocytes/100 leukoc yteson 05-20-2022 Lymphocytes/100 WBC (Bld) 21.4 % 19-41 [facility] Work Phone: Blood monocytes/100 leukocyt eson 05-20-2022 Monocytes/100 WBC (Bld) 9.3 % 0-10 [facility] Work Phone: Blood platelet mean volumeon 05-20-2022 Platelet mean volume (Bld) [Entitic vol] 9.6 fL 6.2-12.0 [facility] Work Phone: [phone] Determination of erythrocyte mean corpuscular volume (MCV)on 05-20-2022 MCV (RBC) [Entitic vol] 91.5 fL 80-94 [facility] Work Phone: Hematocrit Auto (Bld) [Volum e fraction]on 05-20-2022 Hematocrit (Bld) [Volume fraction] 39.9 % 40-54 [facility] Work Phone: Ketones Test strip Ql (U)on 05-20-2022 Ketones Ql (U) Negative Negative [facility] Work Phone: Laboratory - Chemistry and C hemistry - challengeon 05-20-2022 CO2 [Moles/Vol] 26.0 mmol/L 21.0-32.0 [facility] Work Phone: Urea nitrogen/Creatinine [Mass ratio] 9.9 mg/mg 10-20 [facility] Work Phone: Laboratory - Hematology and Cell countson 05-20-2022 Erythrocyte distribution width (RBC) [Entitic vol] 45.7 fL 35.1-43.9 [facility] Work Phone: [phone] Erythrocyte distribution width (RBC) [Ratio] 13.6 % 11.6-14.6 [facility] Work Phone: [phone] Immature granulocytes/100 WBC (Bld) 0.500 % 0.0-0.9 [facility] Work Phone: Comment on above: IG% - Immature Granu locytes (promyelocytes, myelocytes and metamyelocytes) > 1% indicates that a LEFT SHIFT is Present. MCH (RBC) [Entitic mass] 29.6 pg 27.0-32.0 [facility] Work Phone: [phone] Nucleated RBC/100 WBC (Bld) [Ratio] 0 % 0-5 [facility] Work Phone: [phone] MCHC Auto (RBC) [Mass/Vol]on 05-20-2022 MCHC (RBC) [Mass/Vol] 32.3 g/dL 32-36 [facility] Work Phone: [phone] Mucus LM Ql (Urine sed)on Mucus Ql (Urine sed) 0 SEEN /hpf [facility] Work Phone: Nitrite Test strip Ql (U)on 05-20-2022 Nitrite Ql (U) Negative Negative [facility] Work Phone: No Panel Informationon 05-20 Estimated GFR (MDRD) Amer 53 mL/min >60 [facility] Work Phone: Comment on above: GFR Calc Estimated GFR (MDRD) Non-Af Amer 44 mL/min >60 [facility] Work Phone: Comment on above: Non- GFR Calc Platelets bldon 05-20-2022 Platelets (Bld) [#/Vol] 197 10*3/uL 150-450 [facility] Work Phone: Protein Test strip Ql (U)on 05-20-2022 Protein Ql (U) Negative Negative [facility] Work Phone: Serum or plasma albumin you urement (mass/volume)on 05-20-2022 Albumin [Mass/Vol] 2.7 g/dL 3.2-5.0 [facility] Work Phone: Serum or plasma calcium you urement (mass/volume)on 05-20-2022 Calcium [Mass/Vol] 9.0 mg/dL 8.5-10.1 [facility] Work Phone: Serum or plasma creatinine m easurement (mass/volume)on 05-20-2022 Creatinine [Mass/Vol] 1.71 mg/dL 0.70-1.30 [facility] Work Phone: Comment on above: The validity of the calculated GFR & GFRAA in patients over 70 years has not been determined. Clinical correlation is essential. Serum or plasma urea nitroge n measurement (mass/volume)on 05-20-2022 Urea nitrogen [Mass/Vol] 17 mg/dL 7-18 [facility] Work Phone: Squamous epithelial cells de tection in urine sediment by light microscopyon 05-20-2022 Epithelial cells.squamous LM Ql (Urine sed) 0-5 SEEN /hpf 0-5 [facility] Work Phone: Urine blood detectionon 07-0 RBC Ql (U) Negative Negative [facility] Work Phone: [phone] RBC Ql (U) 0 SEEN /hpf 0-5 [facility] Work Phone: [phone] Urine clarityon 05-20-2022 Clarity (U) Clear Clear [facility] Work Phone: Urine color determinationon 05-20-2022 Color (U) Yellow Yellow [facility] Work Phone: [phone] Urine creatinine measurement (mass/volume)on 05-20-2022 Creatinine (U) [Mass/Vol] 107.00 mg/dL NO RANGE EST. [facility] Work Phone: [phone] Urine glucose detectionon Glucose Ql (U) Normal mg/dl Normal [facility] Work Phone: [phone] Urine leukocyte esterase det ection by dipstickon 05-20-2022 Leukocyte esterase Test strip Ql (U) 25 /ul Negative [facility] Work Phone: Urine pHon 05-20-2022 pH (U) 6.5 [pH] 5.0 - 8.0 [facility] Work Phone: [phone] Urine protein measurement (m ass/volume)on 05-20-2022 Protein (U) [Mass/Vol] 17.3 mg/dL 0.0-11.8 [facility] Work Phone: [phone] Urine protein/creatinine mas s ratioon 05-20-2022 Protein/Creatinine (U) [Mass ratio] 162 mg/g CRE 0-200 [facility] Work Phone: Urine sediment bacteria coun t by microscopy (number/high power field)on 05-20-2022 Bacteria LM.HPF (Urine sed) [#/Area] 0 /[HPF] None Seen [facility] Work Phone: [phone] Urine specific gravity measu rementon 05-20-2022 Specific gravity (U) [Rel density] 1.010 1.002-1.03 0 [facility] Work Phone: Urobilinogen Auto test strip Ql (U)on 05-20-2022 Urobilinogen Ql (U) Normal mg/dl Normal [facility] Work Phone: [phone] No Panel Informationon 05-05 [facility] Absolute lymphocyte counton 04-27-2022 Lymphocytes Auto (Unsp spec) [#/Vol] 2.36 10*3/uL 0.83-4.51 [facility] Work Phone: Basophil percentageon 2021 Basophil percentage 4.6 mg/dL 2.5-4.9 [facility] Work Phone: Basophils/100 WBC (Bld) 0.3 % 0-1 [facility] Work Phone: Chloride [Moles/Vol] 104 mmol/L 98-107 [facility] Work Phone: Eosinophils/100 WBC (Bld) 0.1 % 0-5 [facility] Work Phone: Glucose [Mass/Vol] 190 mg/dL 74-106 [facility] Work Phone: [phone] Comment on above: Fasting Glucose resu lt greater than or equal to 126 mg/dL suggests DIABETES MELLITUS per A.D.A. criteria. Neutrophils (Bld) [#/Vol] 10.5 10*3/uL 2.0-7.7 [facility] Work Phone: Neutrophils/100 WBC (Bld) 72.0 % 47-70 [facility] Work Phone: Potassium [Moles/Vol] 3.8 mmol/L 3.5-5.1 [facility] Work Phone: Sodium [Moles/Vol] 140 mmol/L 136-145 [facility] Work Phone: WBC (Bld) [#/Vol] 14.5 10*3/uL 4.4-11.0 [facility] Work Phone: [phone] Blood erythrocytes count (nu mber/volume)on 04-27-2022 RBC (Bld) [#/Vol] 4.56 10*6/uL 4.6-6.2 [facility] Work Phone: [phone] Blood hemoglobin measurement (mass/volume)on 04-27-2022 Hemoglobin (Bld) [Mass/Vol] 13.4 g/dL 13.0-16.5 [facility] Work Phone: Blood lymphocytes/100 leukoc yteson 04-27-2022 Lymphocytes/100 WBC (Bld) 16.3 % 19-41 [facility] Work Phone: Blood monocytes/100 leukocyt eson 04-27-2022 Monocytes/100 WBC (Bld) 7.6 % 0-10 [facility] Work Phone: Blood platelet mean volumeon 04-27-2022 Platelet mean volume (Bld) [Entitic vol] 9.2 fL 6.2-12.0 [facility] Work Phone: [phone] Determination of erythrocyte mean corpuscular volume (MCV)on 04-27-2022 MCV (RBC) [Entitic vol] 91.0 fL 80-94 [facility] Work Phone: Hematocrit Auto (Bld) [Volum e fraction]on 04-27-2022 Hematocrit (Bld) [Volume fraction] 41.5 % 40-54 [facility] Work Phone: [phone] Laboratory - Chemistry and C hemistry - challengeon 04-27-2022 CO2 [Moles/Vol] 28.0 mmol/L 21.0-32.0 [facility] Work Phone: Urea nitrogen/Creatinine [Mass ratio] 13.4 mg/mg 10-20 [facility] Work Phone: Laboratory - Hematology and Cell countson 04-27-2022 Erythrocyte distribution width (RBC) [Entitic vol] 45.7 fL 35.1-43.9 [facility] Work Phone: Erythrocyte distribution width (RBC) [Ratio] 13.7 % 11.6-14.6 [facility] Work Phone: Immature granulocytes/100 WBC (Bld) 3.700 % 0.0-0.9 [facility] Work Phone: Comment on above: IG% - Immature Granu locytes (promyelocytes, myelocytes and metamyelocytes) > 1% indicates that a LEFT SHIFT is Present. MCH (RBC) [Entitic mass] 29.4 pg 27.0-32.0 [facility] Work Phone: Nucleated RBC/100 WBC (Bld) [Ratio] 0.1 % 0-5 [facility] Work Phone: MCHC Auto (RBC) [Mass/Vol]on 04-27-2022 MCHC (RBC) [Mass/Vol] 32.3 g/dL 32-36 [facility] Work Phone: No Panel Informationon 04-27 Estimated GFR (MDRD) Amer 44 mL/min >60 [facility] Work Phone: Comment on above: GFR Calc Estimated GFR (MDRD) Non-Af Amer 36 mL/min >60 [facility] Work Phone: Comment on above: Non- GFR Calc [place] Level 0.50 mmol/L 0.60-1.20 [facility] Work Phone: Platelets bldon 04-27-2022 Platelets (Bld) [#/Vol] 243 10*3/uL 150-450 [facility] Work Phone: [phone] Serum or plasma albumin you urement (mass/volume)on 04-27-2022 Albumin [Mass/Vol] 2.9 g/dL 3.2-5.0 [facility] Work Phone: Serum or plasma calcium you urement (mass/volume)on 04-27-2022 Calcium [Mass/Vol] 9.3 mg/dL 8.5-10.1 [facility] Work Phone: Serum or plasma creatinine m easurement (mass/volume)on 04-27-2022 Creatinine [Mass/Vol] 2.02 mg/dL 0.70-1.30 [facility] Work Phone: Comment on above: The validity of the calculated GFR & GFRAA in patients over 70 years has not been determined. Clinical correlation is essential. Serum or plasma urea nitroge n measurement (mass/volume)on 04-27-2022 Urea nitrogen [Mass/Vol] 27 mg/dL 7-18 [facility] Work Phone: Serum or plasma uric acid me asurement (mass/volume)on 04-27-2022 Urate [Mass/Vol] 6.5 mg/dL 3.5-7.2 [facility] Work Phone: Comment on above: The drugs N-Acetylcy steine and Metamizole may falsely depress this assay. Urine creatinine measurement (mass/volume)on 04-27-2022 Creatinine (U) [Mass/Vol] 69.70 mg/dL NO RANGE EST. [facility] Work Phone: Urine protein measurement (m ass/volume)on 04-27-2022 Protein (U) [Mass/Vol] 10.2 mg/dL 0.0-11.8 [facility] Work Phone: Urine protein/creatinine mas s ratioon 04-27-2022 Protein/Creatinine (U) [Mass ratio] 146 mg/g CRE 0-200 [facility] Work Phone: Basophil percentageon 2021 Basophil percentage 4.2 mg/dL 2.5-4.9 [facility] Work Phone: Chloride [Moles/Vol] 107 mmol/L 98-107 [facility] Work Phone: Glucose [Mass/Vol] 129 mg/dL 74-106 [facility] Work Phone: Comment on above: Fasting Glucose resu lt greater than or equal to 126 mg/dL suggests DIABETES MELLITUS per A.D.A. criteria. Potassium [Moles/Vol] 3.8 mmol/L 3.5-5.1 [facility] Work Phone: Sodium [Moles/Vol] 140 mmol/L 136-145 [facility] Work Phone: Basophil percentage 25-50 SEEN /hpf 0-5 [facility] Work Phone: Bilirubin Test strip Ql (U)o n 04-22-2022 Bilirubin Ql (U) Negative Negative [facility] Work Phone: Culture, urineon 04-22-2022 Bacteria identified Cx Nom (U) Positive [facility] Work Phone: Ketones Test strip Ql (U)on 04-22-2022 Ketones Ql (U) Negative Negative [facility] Work Phone: Laboratory - Chemistry and C hemistry - challengeon 04-22-2022 CO2 [Moles/Vol] 27.0 mmol/L 21.0-32.0 [facility] Work Phone: Urea nitrogen/Creatinine [Mass ratio] 8.2 mg/mg 10-20 [facility] Work Phone: Mucus LM Ql (Urine sed)on Mucus Ql (Urine sed) 0 SEEN /hpf [facility] Work Phone: Nitrite Test strip Ql (U)on 04-22-2022 Nitrite Ql (U) Negative Negative [facility] Work Phone: No Panel Informationon 04-22 Estimated GFR (MDRD) Amer 53 mL/min >60 [facility] Work Phone: Comment on above: GFR Calc Estimated GFR (MDRD) Non-Af Amer 44 mL/min >60 [facility] Work Phone: Comment on above: Non- GFR Calc Protein Test strip Ql (U)on 04-22-2022 Protein Ql (U) 15 mg/dl Negative [facility] Work Phone: Serum or plasma albumin you urement (mass/volume)on 04-22-2022 Albumin [Mass/Vol] 2.6 g/dL 3.2-5.0 [facility] Work Phone: Serum or plasma calcium you urement (mass/volume)on 04-22-2022 Calcium [Mass/Vol] 9.1 mg/dL 8.5-10.1 [facility] Work Phone: Serum or plasma creatinine m easurement (mass/volume)on 04-22-2022 Creatinine [Mass/Vol] 1.71 mg/dL 0.70-1.30 [facility] Work Phone: Comment on above: The validity of the calculated GFR & GFRAA in patients over 70 years has not been determined. Clinical correlation is essential. Serum or plasma urea nitroge n measurement (mass/volume)on 04-22-2022 Urea nitrogen [Mass/Vol] 14 mg/dL 7-18 [facility] Work Phone: Squamous epithelial cells de tection in urine sediment by light microscopyon 04-22-2022 Epithelial cells.squamous LM Ql (Urine sed) 0-5 SEEN /hpf 0-5 [facility] Work Phone: Urine blood detectionon RBC Ql (U) 10 /ul Negative [facility] Work Phone: RBC Ql (U) 0-5 SEEN /hpf 0-5 [facility] Work Phone: Urine clarityon 04-22-2022 Clarity (U) Clear Clear [facility] Work Phone: Urine color determinationon 04-22-2022 Color (U) Yellow Yellow [facility] Work Phone: Urine creatinine measurement (mass/volume)on 04-22-2022 Creatinine (U) [Mass/Vol] 171.00 mg/dL NO RANGE EST. [facility] Work Phone: Urine glucose detectionon Glucose Ql (U) Normal mg/dl Normal [facility] Work Phone: Urine leukocyte esterase det ection by dipstickon 04-22-2022 Leukocyte esterase Test strip Ql (U) 500 /ul Negative [facility] Work Phone: Urine pHon 04-22-2022 pH (U) 6.0 [pH] 5.0 - 8.0 [facility] Work Phone: Urine protein measurement (m ass/volume)on 04-22-2022 Protein (U) [Mass/Vol] 30.4 mg/dL 0.0-11.8 [facility] Work Phone: Urine protein/creatinine mas s ratioon 04-22-2022 Protein/Creatinine (U) [Mass ratio] 178 mg/g CRE 0-200 [facility] Work Phone: Urine sediment bacteria coun t by microscopy (number/high power field)on 04-22-2022 Bacteria LM.HPF (Urine sed) [#/Area] 0 /[HPF] None Seen [facility] Work Phone: Urine specific gravity measu rementon 04-22-2022 Specific gravity (U) [Rel density] 1.015 1.002-1.03 0 [facility] Work Phone: Urobilinogen Auto test strip Ql (U)on 04-22-2022 Urobilinogen Ql (U) Normal mg/dl Normal [facility] Work Phone: Absolute lymphocyte counton 04-21-2022 Lymphocytes Auto (Unsp spec) [#/Vol] 2.19 10*3/uL 0.83-4.51 [facility] Work Phone: Basophil percentageon 2021 Basophils/100 WBC (Bld) 0.6 % 0-1 [facility] Work Phone: Eosinophils/100 WBC (Bld) 2.4 % 0-5 [facility] Work Phone: Neutrophils (Bld) [#/Vol] 5.3 10*3/uL 2.0-7.7 [facility] Work Phone: Neutrophils/100 WBC (Bld) 60.5 % 47-70 [facility] Work Phone: WBC (Bld) [#/Vol] 8.8 10*3/uL 4.4-11.[address] [facility] [facility] Work Phone: [phone] Blood erythrocytes count (nu mber/volume)on 04-21-2022 RBC (Bld) [#/Vol] 4.29 10*6/uL 4.6-6.2 [facility] Work Phone: [phone] Blood hemoglobin measurement (mass/volume)on 04-21-2022 Hemoglobin (Bld) [Mass/Vol] 12.9 g/dL 13.0-16.5 [facility] Work Phone: Blood lymphocytes/100 leukoc yteson 04-21-2022 Lymphocytes/100 WBC (Bld) 24.9 % 19-41 [facility] Work Phone: Blood monocytes/100 leukocyt eson 04-21-2022 Monocytes/100 WBC (Bld) 11.4 % 0-10 [facility] Work Phone: [phone] Blood platelet mean volumeon 04-21-2022 Platelet mean volume (Bld) [Entitic vol] 9.5 fL 6.2-12.0 [facility] Work Phone: [phone] Determination of erythrocyte mean corpuscular volume (MCV)on 04-21-2022 MCV (RBC) [Entitic vol] 92.1 fL 80-94 [facility] Work Phone: [phone] Hematocrit Auto (Bld) [Volum e fraction]on 04-21-2022 Hematocrit (Bld) [Volume fraction] 39.5 % 40-54 [facility] Work Phone: [phone] Laboratory - Hematology and Cell countson 04-21-2022 Erythrocyte distribution width (RBC) [Entitic vol] 45.9 fL 35.1-43.9 [facility] Work Phone: [phone] Erythrocyte distribution width (RBC) [Ratio] 13.5 % 11.6-14.6 [facility] Work Phone: [phone] Immature granulocytes/100 WBC (Bld) 0.200 % 0.0-0.9 [facility] Work Phone: [phone] Comment on above: IG% - Immature Granu locytes (promyelocytes, myelocytes and metamyelocytes) > 1% indicates that a LEFT SHIFT is Present. MCH (RBC) [Entitic mass] 30.1 pg 27.0-32.0 [facility] Work Phone: Nucleated RBC/100 WBC (Bld) [Ratio] 0 % 0-5 [facility] Work Phone: [phone] MCHC Auto (RBC) [Mass/Vol]on 04-21-2022 MCHC (RBC) [Mass/Vol] 32.7 g/dL 32-36 [facility] Work Phone: Platelets bldon 04-21-2022 Platelets (Bld) [#/Vol] 199 10*3/uL 150-450 [facility] Work Phone: Serum or plasma uric acid me asurement (mass/volume)on 04-21-2022 Urate [Mass/Vol] 6.2 mg/dL 3.5-7.2 [facility] Work Phone: Comment on above: The drugs N-Acetylcy steine and Metamizole may falsely depress this assay. Laboratory - Microbiology an d Antimicrobial susceptibilityon 04-06-2022 SARS-CoV-2 (COVID-19) RNA AMANDO+probe Ql (Unsp spec) Detected Not Detect [facility] Work Phone: Comment on above: Normal [...] Auto (Unsp spec) [#/Vol] 1.96 10*3/uL 0.83-4.51 [facility] Work Phone: Basophil percentageon 2021 Basophils/100 WBC (Bld) 0.6 % 0-1 [facility] Work Phone: Chloride [Moles/Vol] 103 mmol/L 98-107 [facility] Work Phone: Eosinophils/100 WBC (Bld) 0.6 % 0-5 [facility] Work Phone: Glucose [Mass/Vol] 133 mg/dL 74-106 [facility] Work Phone: Comment on above: Fasting Glucose resu lt greater than or equal to 126 mg/dL suggests DIABETES MELLITUS per A.D.A. criteria. Neutrophils (Bld) [#/Vol] 7.3 10*3/uL 2.0-7.7 [facility] Work Phone: Neutrophils/100 WBC (Bld) 64.6 % 47-70 [facility] Work Phone: Potassium [Moles/Vol] 3.5 mmol/L 3.5-5.1 [facility] Work Phone: Sodium [Moles/Vol] 138 mmol/L 136-145 [facility] Work Phone: WBC (Bld) [#/Vol] 11.3 10*3/uL 4.4-11.0 [facility] Work Phone: Blood erythrocytes count (nu mber/volume)on 04-02-2022 RBC (Bld) [#/Vol] 4.81 10*6/uL 4.6-6.2 [facility] Work Phone: Blood hemoglobin measurement (mass/volume)on 04-02-2022 Hemoglobin (Bld) [Mass/Vol] 14.4 g/dL 13.0-16.5 [facility] Work Phone: Blood lymphocytes/100 leukoc yteson 04-02-2022 Lymphocytes/100 WBC (Bld) 17.3 % 19-41 [facility] Work Phone: Blood monocytes/100 leukocyt eson 04-02-2022 Monocytes/100 WBC (Bld) 15.7 % 0-10 [facility] Work Phone: Blood platelet mean volumeon 04-02-2022 Platelet mean volume (Bld) [Entitic vol] 10.0 fL 6.2-12.0 [facility] Work Phone: [phone] Determination of erythrocyte mean corpuscular volume (MCV)on 04-02-2022 MCV (RBC) [Entitic vol] 91.7 fL 80-94 [facility] Work Phone: Hematocrit Auto (Bld) [Volum e fraction]on 04-02-2022 Hematocrit (Bld) [Volume fraction] 44.1 % 40-54 [facility] Work Phone: [phone] Laboratory - Chemistry and C hemistry - challengeon 04-02-2022 CO2 [Moles/Vol] 26.0 mmol/L 21.0-32.0 [facility] Work Phone: Urea nitrogen/Creatinine [Mass ratio] 14.1 mg/mg - [facility] Work Phone: Laboratory - Hematology and Cell countson 04-02-2022 Erythrocyte distribution width (RBC) [Entitic vol] 47.8 fL 35.1-43.9 [facility] Work Phone: Erythrocyte distribution width (RBC) [Ratio] 14.0 % 11.6-14.6 [facility] Work Phone: Immature granulocytes/100 WBC (Bld) 1.200 % 0.0-0.9 [facility] Work Phone: [phone] Comment on above: IG% - Immature Granu locytes (promyelocytes, myelocytes and metamyelocytes) > 1% indicates that a LEFT SHIFT is Present. MCH (RBC) [Entitic mass] 29.9 pg 27.0-32.0 [facility] Work Phone: Nucleated RBC/100 WBC (Bld) [Ratio] 0 % 0-5 [facility] Work Phone: MCHC Auto (RBC) [Mass/Vol]on 04-02-2022 MCHC (RBC) [Mass/Vol] 32.7 g/dL 32-36 [facility] Work Phone: No Panel Informationon 04-02 Estimated GFR (MDRD) Amer 51 mL/min >60 [facility] Work Phone: Comment on above: GFR Calc Estimated GFR (MDRD) Non-Af Amer 42 mL/min >60 [facility] Work Phone: Comment on above: Non- GFR Calc Platelets bldon 04-02-2022 Platelets (Bld) [#/Vol] 160 10*3/uL 150-450 [facility] Work Phone: Review by pathologiston 03-15 Pathologist review Crispin (Unsp spec) [Interp] Reviewed [facility] Work Phone: Comment on above: Previous reported re sult: Bonnie kincaid Edited by: RGOVISHAL on 04/06/22:0913Leukocytosis. Tuan Servin M.D. 04/06/22 AMENDED REPORT 04/06/22 0913 PATH REV previously reported as: Bonnie kincaid Serum or plasma calcium you urement (mass/volume)on 04-02-2022 Calcium [Mass/Vol] 9.0 mg/dL 8.5-10.1 [facility] Work Phone: Serum or plasma creatinine m easurement (mass/volume)on 04-02-2022 Creatinine [Mass/Vol] 1.77 mg/dL 0.70-1.30 [facility] Work Phone: Comment on above: The validity of the calculated GFR & GFRAA in patients over 70 years has not been determined. Clinical correlation is essential. Serum or plasma urea nitroge n measurement (mass/volume)on 04-02-2022 Urea nitrogen [Mass/Vol] 25 mg/dL 7-18 [facility] Work Phone: Thin prep Papanicolaou smear with manual screeningon 04-02-2022 Thin prep Papanicolaou smear with manual screening 9 5-15 [facility] Work Phone: Absolute lymphocyte counton 03-25-2022 Lymphocytes Auto (Unsp spec) [#/Vol] 2.80 10*3/uL 0.83-4.51 [facility] Work Phone: Basophil percentageon 2021 Basophil percentage 4.0 mg/dL 2.5-4.9 [facility]: Basophils/100 WBC (Bld) 0.6 % 0-1 [facility] Work Phone: Chloride [Moles/Vol] 106 mmol/L 98-107 [facility] Work Phone: Eosinophils/100 WBC (Bld) 1.7 % 0-5 [facility] Work Phone: Glucose [Mass/Vol] 164 mg/dL 74-106 [facility] Work Phone: Comment on above: Fasting Glucose resu lt greater than or equal to 126 mg/dL suggests DIABETES MELLITUS per A.D.A. criteria. Neutrophils (Bld) [#/Vol] 5.6 10*3/uL 2.0-7.7 [facility] Work Phone: Neutrophils/100 WBC (Bld) 56.9 % 47-70 [facility] Work Phone: Potassium [Moles/Vol] 3.8 mmol/L 3.5-5.1 [facility] Work Phone: Sodium [Moles/Vol] 139 mmol/L 136-145 [facility] Work Phone: WBC (Bld) [#/Vol] 9.8 10*3/uL 4.4-11.0 [facility] Work Phone: Basophil percentage 0-5 SEEN /hpf 0-5 [facility] Work Phone: Bilirubin Test strip Ql (U)o n 03-25-2022 Bilirubin Ql (U) Negative Negative [facility] Work Phone: [phone] Blood erythrocytes count (nu mber/volume)on 03-25-2022 RBC (Bld) [#/Vol] 4.77 10*6/uL 4.6-6.2 [facility] Work Phone: Blood hemoglobin measurement (mass/volume)on 03-25-2022 Hemoglobin (Bld) [Mass/Vol] 14.1 g/dL 13.0-16.5 [facility] Work Phone: Blood lymphocytes/100 leukoc yteson 03-25-2022 Lymphocytes/100 WBC (Bld) 28.7 % 19-41 [facility] Work Phone: Blood monocytes/100 leukocyt eson 03-25-2022 Monocytes/100 WBC (Bld) 9.2 % 0-10 [facility] Work Phone: Blood platelet mean volumeon 03-25-2022 Platelet mean volume (Bld) [Entitic vol] 9.3 fL 6.2-12.0 [facility] Work Phone: [phone] Determination of erythrocyte mean corpuscular volume (MCV)on 03-25-2022 MCV (RBC) [Entitic vol] 91.4 fL 80-94 [facility] Work Phone: Hematocrit Auto (Bld) [Volum e fraction]on 03-25-2022 Hematocrit (Bld) [Volume fraction] 43.6 % 40-54 [facility] Work Phone: [phone] Ketones Test strip Ql (U)on 03-25-2022 Ketones Ql (U) Negative Negative [facility] Work Phone: [phone] Laboratory - Chemistry and C hemistry - challengeon 03-25-2022 CO2 [Moles/Vol] 26.0 mmol/L 21.0-32.0 [facility] Work Phone: [phone] Urea nitrogen/Creatinine [Mass ratio] 15.4 mg/mg 10-20 [facility] Work Phone: Laboratory - Hematology and Cell countson 03-25-2022 Erythrocyte distribution width (RBC) [Entitic vol] 45.9 fL 35.1-43.9 [facility] Work Phone: Erythrocyte distribution width (RBC) [Ratio] 13.6 % 11.6-14.6 [facility] Work Phone: Immature granulocytes/100 WBC (Bld) 2.900 % 0.0-0.9 [facility] Work Phone: Comment on above: IG% - Immature Granu locytes (promyelocytes, myelocytes and metamyelocytes) > 1% indicates that a LEFT SHIFT is Present. MCH (RBC) [Entitic mass] 29.6 pg 27.0-32.0 [facility] Work Phone: Nucleated RBC/100 WBC (Bld) [Ratio] 0 % 0-5 [facility] Work Phone: MCHC Auto (RBC) [Mass/Vol]on 03-25-2022 MCHC (RBC) [Mass/Vol] 32.3 g/dL 32-36 [facility] Work Phone: Mucus LM Ql (Urine sed)on Mucus Ql (Urine sed) 0 SEEN /hpf [facility] Work Phone: Nitrite Test strip Ql (U)on 03-25-2022 Nitrite Ql (U) Negative Negative [facility] Work Phone: No Panel Informationon 03-25 Estimated GFR (MDRD) Amer 52 mL/min >60 [facility] Work Phone: Comment on above: GFR Calc Estimated GFR (MDRD) Non-Af Amer 43 mL/min >60 [facility] Work Phone: Comment on above: Non- GFR Calc Platelets bldon 03-25-2022 Platelets (Bld) [#/Vol] 276 10*3/uL 150-450 [facility] Work Phone: Protein Test strip Ql (U)on 03-25-2022 Protein Ql (U) Negative Negative [facility] Work Phone: Serum or plasma albumin you urement (mass/volume)on 03-25-2022 Albumin [Mass/Vol] 2.9 g/dL 3.2-5.0 [facility] Work Phone: Serum or plasma calcium you urement (mass/volume)on 03-25-2022 Calcium [Mass/Vol] 8.7 mg/dL 8.5-10.1 [facility] Work Phone: Serum or plasma creatinine m easurement (mass/volume)on 03-25-2022 Creatinine [Mass/Vol] 1.75 mg/dL 0.70-1.30 [facility] Work Phone: Comment on above: The validity of the calculated GFR & GFRAA in patients over 70 years has not been determined. Clinical correlation is essential. Serum or plasma urea nitroge n measurement (mass/volume)on 03-25-2022 Urea nitrogen [Mass/Vol] 27 mg/dL 7-18 [facility] Work Phone: Squamous epithelial cells de tection in urine sediment by light microscopyon 03-25-2022 Epithelial cells.squamous LM Ql (Urine sed) 0-5 SEEN /hpf 0-5 [facility] Work Phone: Urine blood detectionon 03-14 RBC Ql (U) Negative Negative [facility] Work Phone: RBC Ql (U) 0 SEEN /hpf 0-5 [facility] Work Phone: Urine clarityon 03-25-2022 Clarity (U) Sl. Cloudy Clear [facility] Work Phone: Urine color determinationon 03-25-2022 Color (U) Yellow Yellow [facility] Work Phone: Urine creatinine measurement (mass/volume)on 03-25-2022 Creatinine (U) [Mass/Vol] 90.50 mg/dL NO RANGE EST. [facility] Work Phone: Urine glucose detectionon Glucose Ql (U) Normal mg/dl Normal [facility] Work Phone: [phone] Urine leukocyte esterase det ection by dipstickon 03-25-2022 Leukocyte esterase Test strip Ql (U) 25 /ul Negative [facility] Work Phone: Urine pHon 03-25-2022 pH (U) 6.0 [pH] 5.0 - 8.0 [facility] Work Phone: [phone] Urine protein measurement (m ass/volume)on 03-25-2022 Protein (U) [Mass/Vol] 15.8 mg/dL 0.0-11.8 [facility] Work Phone: Urine protein/creatinine mas s ratioon 03-25-2022 Protein/Creatinine (U) [Mass ratio] 175 mg/g CRE 0-200 [facility] Work Phone: [phone] Urine sediment bacteria coun t by microscopy (number/high power field)on 03-25-2022 Bacteria LM.HPF (Urine sed) [#/Area] 0 /[HPF] None Seen [facility] Work Phone: [phone] Urine specific gravity measu rementon 03-25-2022 Specific gravity (U) [Rel density] 1.015 1.002-1.03 0 [facility] Work Phone: [phone] Urobilinogen Auto test strip Ql (U)on 03-25-2022 Urobilinogen Ql (U) Normal mg/dl Normal [facility] Work Phone: [phone] Serum or plasma uric acid me asurement (mass/volume)on 03-19-2022 Urate [Mass/Vol] 8.3 mg/dL 3.5-7.2 [facility] Work Phone: [phone] Comment on above: The drugs N-Acetylcy steine and Metamizole may falsely depress this assay. Absolute lymphocyte counton 02-25-2022 Lymphocytes Auto (Unsp spec) [#/Vol] 2.27 10*3/uL 0.83-4.51 [facility] Work Phone: Basophil percentageon 2021 Basophil percentage 0 SEEN /hpf 0-5 [facility] Work Phone: Basophil percentage 4.3 mg/dL 2.5-4.9 [facility] Work Phone: Basophils/100 WBC (Bld) 0.3 % 0-1 [facility] Work Phone: Chloride [Moles/Vol] 102 mmol/L 98-107 [facility] Work Phone: Eosinophils/100 WBC (Bld) 0.2 % 0-5 [facility] Work Phone: Glucose [Mass/Vol] 107 mg/dL 74-106 [facility] Work Phone: [phone] Comment on above: Fasting Glucose resu lt from 100 to 125 mg/dL suggests IMPAIRED HOMEOSTASIS per A.D.A. criteria. Neutrophils (Bld) [#/Vol] 7.8 10*3/uL 2.0-7.7 [facility] Work Phone: Neutrophils/100 WBC (Bld) 67.9 % 47-70 [facility] Work Phone: [phone] Potassium [Moles/Vol] 4.1 mmol/L 3.5-5.1 [facility] Work Phone: [phone] Comment on above: Moderate Hemolysis, Result may be falsely increased. Sodium [Moles/Vol] 137 mmol/L 136-145 [facility] Work Phone: WBC (Bld) [#/Vol] 11.6 10*3/uL 4.4-11.0 [facility] Work Phone: [phone] Bilirubin Test strip Ql (U)o n 02-25-2022 Bilirubin Ql (U) Negative Negative [facility] Work Phone: Blood erythrocytes count (nu mber/volume)on 02-25-2022 RBC (Bld) [#/Vol] 4.09 10*6/uL 4.6-6.2 [facility] Work Phone: Blood hemoglobin measurement (mass/volume)on 02-25-2022 Hemoglobin (Bld) [Mass/Vol] 12.0 g/dL 13.0-16.5 [facility] Work Phone: [phone] Blood lymphocytes/100 leukoc yteson 02-25-2022 Lymphocytes/100 WBC (Bld) 19.7 % 19-41 [facility] Work Phone: Blood monocytes/100 leukocyt eson 02-25-2022 Monocytes/100 WBC (Bld) 9.0 % 0-10 [facility] Work Phone: [phone] Blood platelet adequacy dete ction by light microscopyon 02-25-2022 Platelets LM Ql (Bld) ADEQUATE ADEQ [facility] Work Phone: [phone] Blood platelet mean volumeon 02-25-2022 Platelet mean volume (Bld) [Entitic vol] 9.9 fL 6.2-12.0 [facility] Work Phone: Culture, urineon 02-25-2022 Bacteria identified Cx Nom (U) Culture exhibits no growth. [facility] Work Phone: [phone] Determination of erythrocyte mean corpuscular volume (MCV)on 02-25-2022 MCV (RBC) [Entitic vol] 90.2 fL 80-94 [facility] Work Phone: [phone] Hematocrit Auto (Bld) [Volum e fraction]on 02-25-2022 Hematocrit (Bld) [Volume fraction] 36.9 % 40-54 [facility] Work Phone: Ketones Test strip Ql (U)on 02-25-2022 Ketones Ql (U) Negative Negative [facility] Work Phone: Laboratory - Chemistry and C hemistry - challengeon 02-25-2022 CO2 [Moles/Vol] 26.0 mmol/L 21.0-32.0 [facility] Work Phone: [phone] Urea nitrogen/Creatinine [Mass ratio] 18.6 mg/mg 10-20 [facility] Work Phone: Laboratory - Hematology and Cell countson 02-25-2022 Erythrocyte distribution width (RBC) [Entitic vol] 46.8 fL 35.1-43.9 [facility] Work Phone: Erythrocyte distribution width (RBC) [Ratio] 14.1 % 11.6-14.6 [facility] Work Phone: Immature granulocytes/100 WBC (Bld) 2.900 % 0.0-0.9 [facility] Work Phone: Comment on above: IG% - Immature Granu locytes (promyelocytes, myelocytes and metamyelocytes) > 1% indicates that a LEFT SHIFT is Present. MCH (RBC) [Entitic mass] 29.3 pg 27.0-32.0 [facility] Work Phone: Nucleated RBC/100 WBC (Bld) [Ratio] 0 % 0-5 [facility] Work Phone: MCHC Auto (RBC) [Mass/Vol]on 02-25-2022 MCHC (RBC) [Mass/Vol] 32.5 g/dL 32-36 [facility] Work Phone: Mucus LM Ql (Urine sed)on Mucus Ql (Urine sed) 0 SEEN /hpf [facility] Work Phone: Nitrite Test strip Ql (U)on 02-25-2022 Nitrite Ql (U) Negative Negative [facility] Work Phone: No Panel Informationon 02-25 Estimated GFR (MDRD) Amer 43 mL/min >60 [facility] Work Phone: Comment on above: GFR Calc Estimated GFR (MDRD) Non-Af Amer 36 mL/min >60 [facility] Work Phone: Comment on above: Non- GFR Calc [place] Level 0.50 mmol/L 0.60-1.20 [facility] Work Phone: Platelets bldon 02-25-2022 Platelets (Bld) [#/Vol] TNP [facility] Work Phone: Comment on above: Test not performedPl ease note: For this sample, a platelet estimate is provided rather than a platelet count due to platelet clumping. Other parameters associated with this sample are not affected by platelet clumping. If a more accurate platelet count is required, a redraw of the patient will be necessary.Previous reported result: 202 [id number] by: RUPERTO on 02/25/22:1032 AMENDED REPORT 02/25/22 1032 PLT previously reported as: 202 K/mm3 Protein Test strip Ql (U)on 02-25-2022 Protein Ql (U) Negative Negative [facility] Work Phone: Serum or plasma albumin you urement (mass/volume)on 02-25-2022 Albumin [Mass/Vol] 3.2 g/dL 3.2-5.0 [facility] Work Phone: Serum or plasma calcium you urement (mass/volume)on 02-25-2022 Calcium [Mass/Vol] 8.4 mg/dL 8.5-10.1 [facility] Work Phone: Serum or plasma creatinine m easurement (mass/volume)on 02-25-2022 Creatinine [Mass/Vol] 2.04 mg/dL 0.70-1.30 [facility] Work Phone: Comment on above: The validity of the calculated GFR & GFRAA in patients over 70 years has not been determined. Clinical correlation is essential. Serum or plasma urea nitroge n measurement (mass/volume)on 02-25-2022 Urea nitrogen [Mass/Vol] 38 mg/dL 7-18 [facility] Work Phone: Serum or plasma uric acid me asurement (mass/volume)on 02-25-2022 Urate [Mass/Vol] 7.8 mg/dL 3.5-7.2 [facility] Work Phone: Comment on above: The drugs N-Acetylcy steine and Metamizole may falsely depress this assay. Squamous epithelial cells de tection in urine sediment by light microscopyon 02-25-2022 Epithelial cells.squamous LM Ql (Urine sed) 0 SEEN /hpf 0-5 [facility] Work Phone: [phone] Urine blood detectionon 02-12 RBC Ql (U) Negative Negative [facility] Work Phone: RBC Ql (U) 0 SEEN /hpf 0-5 [facility] Work Phone: Urine clarityon 02-25-2022 Clarity (U) Clear Clear [facility] Work Phone: [phone] Urine color determinationon 02-25-2022 Color (U) Yellow Yellow [facility] Work Phone: Urine creatinine measurement (mass/volume)on 02-25-2022 Creatinine (U) [Mass/Vol] 82.80 mg/dL NO RANGE EST. [facility] Work Phone: Urine glucose detectionon Glucose Ql (U) Normal mg/dl Normal [facility] Work Phone: Urine leukocyte esterase det ection by dipstickon 02-25-2022 Leukocyte esterase Test strip Ql (U) 25 /ul Negative [facility] Work Phone: Urine pHon 02-25-2022 pH (U) 6.0 [pH] 5.0 - 8.0 [facility] Work Phone: [phone] Urine protein measurement (m ass/volume)on 02-25-2022 Protein (U) [Mass/Vol] 13.8 mg/dL 0.0-11.8 [facility] Work Phone: Urine protein/creatinine mas s ratioon 02-25-2022 Protein/Creatinine (U) [Mass ratio] 167 mg/g CRE 0-200 [facility] Work Phone: Urine sediment bacteria coun t by microscopy (number/high power field)on 02-25-2022 Bacteria LM.HPF (Urine sed) [#/Area] 0 /[HPF] None Seen [facility] Work Phone: [phone] Urine specific gravity measu rementon 02-25-2022 Specific gravity (U) [Rel density] 1.020 1.002-1.03 0 [facility] Work Phone: Urobilinogen Auto test strip Ql (U)on 02-25-2022 Urobilinogen Ql (U) Normal mg/dl Normal [facility] Work Phone: Basophil percentageon 2021 Chloride [Moles/Vol] 110 mmol/L 98-107 [facility] Work Phone: Glucose [Mass/Vol] 125 mg/dL 74-106 [facility] Work Phone: Comment on above: Fasting Glucose resu lt from 100 to 125 mg/dL suggests IMPAIRED HOMEOSTASIS per A.D.A. criteria. Potassium [Moles/Vol] 4.1 mmol/L 3.5-5.1 [facility] Work Phone: Sodium [Moles/Vol] 139 mmol/L 136-145 [facility] Work Phone: Erythrocyte sedimentation ra meredith 02-18-2022 ESR (Bld) [Velocity] 12 mm/h 0-20 [facility] Work Phone: Laboratory - Chemistry and C hemistry - challengeon 02-18-2022 CO2 [Moles/Vol] 24.0 mmol/L 21.0-32.0 [facility] Work Phone: Urea nitrogen/Creatinine [Mass ratio] 11.8 mg/mg 10-20 [facility] Work Phone: No Panel Informationon 02-18 Estimated GFR (MDRD) Amer 48 mL/min >60 [facility] Work Phone: Comment on above: GFR Calc Estimated GFR (MDRD) Non-Af Amer 40 mL/min >60 [facility] Work Phone: Comment on above: Non- GFR Calc Serum or plasma calcium you urement (mass/volume)on 02-18-2022 Calcium [Mass/Vol] 8.7 mg/dL 8.5-10.1 [facility] Work Phone: Serum or plasma creatinine m easurement (mass/volume)on 02-18-2022 Creatinine [Mass/Vol] 1.86 mg/dL 0.70-1.30 [facility] Work Phone: Comment on above: The validity of the calculated GFR & GFRAA in patients over 70 years has not been determined. Clinical correlation is essential. Serum or plasma urea nitroge n measurement (mass/volume)on 02-18-2022 Urea nitrogen [Mass/Vol] 22 mg/dL 7-18 [facility] Work Phone: Serum or plasma uric acid me asurement (mass/volume)on 02-18-2022 Urate [Mass/Vol] 7.2 mg/dL 3.5-7.2 [facility] Work Phone: Comment on above: The drugs N-Acetylcy steine and Metamizole may falsely depress this assay. Thin prep Papanicolaou smear with manual screeningon 02-18-2022 Thin prep Papanicolaou smear with manual screening 5 5-15 [facility] Work Phone: Absolute lymphocyte counton 01-28-2022 Lymphocytes Auto (Unsp spec) [#/Vol] 1.90 10*3/uL 0.83-4.51 [facility] Work Phone: Basophil percentageon 2021 Basophil percentage 0 SEEN /hpf 0-5 [facility] Work Phone: Basophil percentage 2.7 mg/dL 2.5-4.9 [facility] Work [facility]: Basophils/100 WBC (Bld) 0.5 % 0-1 [facility] Work Phone: [phone] Chloride [Moles/Vol] 110 mmol/L 98-107 [facility] Work Phone: Eosinophils/100 WBC (Bld) 0.4 % 0-5 [facility] Work Phone: Glucose [Mass/Vol] 129 mg/dL 74-106 [facility] Work Phone: Comment on above: Fasting Glucose resu lt greater than or equal to 126 mg/dL suggests DIABETES MELLITUS per A.D.A. criteria. Neutrophils (Bld) [#/Vol] 8.0 10*3/uL 2.0-7.7 [facility] Work Phone: Neutrophils/100 WBC (Bld) 70.6 % 47-70 [facility] Work Phone: Potassium [Moles/Vol] 3.8 mmol/L 3.5-5.1 [facility] Work Phone: Sodium [Moles/Vol] 141 mmol/L 136-145 [facility] Work Phone: WBC (Bld) [#/Vol] 11.3 10*3/uL 4.4-11.0 [facility] Work Phone: [phone] Bilirubin Test strip Ql (U)o n 01-28-2022 Bilirubin Ql (U) Negative Negative [facility] Work Phone: [phone] Blood erythrocytes count (nu mber/volume)on 01-28-2022 RBC (Bld) [#/Vol] 4.23 10*6/uL 4.6-6.2 [facility] Work Phone: [phone] Blood hemoglobin measurement (mass/volume)on 01-28-2022 Hemoglobin (Bld) [Mass/Vol] 12.6 g/dL 13.0-16.5 [facility] Work Phone: Blood lymphocytes/100 leukoc yteson 01-28-2022 Lymphocytes/100 WBC (Bld) 16.8 % 19-41 [facility] Work Phone: Blood monocytes/100 leukocyt eson 01-28-2022 Monocytes/100 WBC (Bld) 10.0 % 0-10 [facility] Work Phone: Blood platelet mean volumeon 01-28-2022 Platelet mean volume (Bld) [Entitic vol] 9.3 fL 6.2-12.0 [facility] Work Phone: [phone] Determination of erythrocyte mean corpuscular volume (MCV)on 01-28-2022 MCV (RBC) [Entitic vol] 91.3 fL 80-94 [facility] Work Phone: Hematocrit Auto (Bld) [Volum e fraction]on 01-28-2022 Hematocrit (Bld) [Volume fraction] 38.6 % 40-54 [facility] Work Phone: Ketones Test strip Ql (U)on 01-28-2022 Ketones Ql (U) Negative Negative [facility] Work Phone: Laboratory - Chemistry and C hemistry - challengeon 01-28-2022 CO2 [Moles/Vol] 25.0 mmol/L 21.0-32.0 [facility] Work Phone: Urea nitrogen/Creatinine [Mass ratio] 14.7 mg/mg 10-20 [facility] Work Phone: Laboratory - Hematology and Cell countson 01-28-2022 Erythrocyte distribution width (RBC) [Entitic vol] 45.7 fL 35.1-43.9 [facility] Work Phone: [phone] Erythrocyte distribution width (RBC) [Ratio] 13.7 % 11.6-14.6 [facility] Work Phone: [phone] Immature granulocytes/100 WBC (Bld) 1.700 % 0.0-0.9 [facility] Work Phone: Comment on above: IG% - Immature Granu locytes (promyelocytes, myelocytes and metamyelocytes) > 1% indicates that a LEFT SHIFT is Present. MCH (RBC) [Entitic mass] 29.8 pg 27.0-32.0 [facility] Work Phone: Nucleated RBC/100 WBC (Bld) [Ratio] 0 % 0-5 [facility] Work Phone: MCHC Auto (RBC) [Mass/Vol]on 01-28-2022 MCHC (RBC) [Mass/Vol] 32.6 g/dL 32-36 [facility] Work Phone: Mucus LM Ql (Urine sed)on Mucus Ql (Urine sed) 0 SEEN /hpf [facility] Work Phone: Nitrite Test strip Ql (U)on 01-28-2022 Nitrite Ql (U) Negative Negative [facility] Work Phone: No Panel Informationon 01-28 Urine Microalbumin/Creatinine Ratio 77.0 mg/g CRE <30 [facility] Work Phone: Estimated GFR (MDRD) Amer 56 mL/min >60 [facility] Work Phone: Comment on above: GFR Calc Estimated GFR (MDRD) Non-Af Amer 46 mL/min >60 [facility] Work Phone: Comment on above: Non- GFR Calc Platelets bldon 01-28-2022 Platelets (Bld) [#/Vol] 240 10*3/uL 150-450 [facility] Work Phone: Protein Test strip Ql (U)on 01-28-2022 Protein Ql (U) Negative Negative [facility] Work Phone: Serum or plasma albumin you urement (mass/volume)on 01-28-2022 Albumin [Mass/Vol] 3.2 g/dL 3.2-5.0 [facility] Work Phone: Serum or plasma calcium you urement (mass/volume)on 01-28-2022 Calcium [Mass/Vol] 8.4 mg/dL 8.5-10.1 [facility] Work Phone: Serum or plasma creatinine m easurement (mass/volume)on 01-28-2022 Creatinine [Mass/Vol] 1.63 mg/dL 0.70-1.30 [facility] Work Phone: Comment on above: The validity of the calculated GFR & GFRAA in patients over 70 years has not been determined. Clinical correlation is essential. Serum or plasma urea nitroge n measurement (mass/volume)on 01-28-2022 Urea nitrogen [Mass/Vol] 24 mg/dL 7-18 [facility] Work Phone: Squamous epithelial cells de tection in urine sediment by light microscopyon 01-28-2022 Epithelial cells.squamous LM Ql (Urine sed) 0-5 SEEN /hpf 0-5 [facility] Work Phone: Thin prep Papanicolaou smear with manual screeningon 01-28-2022 Thin prep Papanicolaou smear with manual screening 28.5 mg/L NO RANGE EST. [facility] Work Phone: Urine blood detectionon 01-12 RBC Ql (U) Negative Negative [facility] Work Phone: [phone] RBC Ql (U) 0 SEEN /hpf 0-5 [facility] Work Phone: Urine clarityon 01-28-2022 Clarity (U) Sl. Cloudy Clear [facility] Work Phone: Urine color determinationon 01-28-2022 Color (U) Yellow Yellow [facility] Work Phone: Urine creatinine measurement (mass/volume)on 01-28-2022 Creatinine (U) [Mass/Vol] 37.00 mg/dL NO RANGE EST. [facility] Work Phone: Urine glucose detectionon Glucose Ql (U) Normal mg/dl Normal [facility] Work Phone: Urine leukocyte esterase det ection by dipstickon 01-28-2022 Leukocyte esterase Test strip Ql (U) Negative Negative [facility] Work Phone: Urine pHon 01-28-2022 pH (U) 7.0 [pH] 5.0 - 8.0 [facility] Work Phone: Urine sediment bacteria coun t by microscopy (number/high power field)on 01-28-2022 Bacteria LM.HPF (Urine sed) [#/Area] 0 /[HPF] None Seen [facility] Work Phone: Urine specific gravity measu rementon 01-28-2022 Specific gravity (U) [Rel density] 1.010 1.002-1.03 0 [facility] Work Phone: Urobilinogen Auto test strip Ql (U)on 01-28-2022 Urobilinogen Ql (U) Normal mg/dl Normal [facility] Work Phone: No Panel Informationon 01-25 [place] Level 0.50 mmol/L 0.60-1.20 [facility] Work Phone: Basophil percentageon 2021 Cholesterol [Mass/Vol] 140 mg/dL <200 [facility] Work Phone: Comment on above: <200 mg/dL Desirable 200-240 mg/dL Borderline >240 mg/dL High Risk Triglyceride [Mass/Vol] 247 mg/dL <199 [facility] Work Phone: Comment on above: The drugs N-Acetylcy steine and Metamizole may falsely depress this assay.Serum Triglycerides Reference Interval Normal <150 mg/dL Borderline high 150 - 199 mg/dL High 200 - 499 mg/dL Very High > or = 500 mg/dL No Panel Informationon 01-04 [place] Level 0.50 mmol/L 0.60-1.20 [facility] Work Phone: Serum or plasma cholesterol in HDL measurement (mass/volume)on 01-04-2022 Cholesterol in HDL [Mass/Vol] 34 mg/dL >40 [facility] Work Phone: Comment on above: The drugs N-Acetylcy steine and Metamizole may falsely depress this assay. Reference Range HDL <40 mg/dL Low HDL Cholesterol HDL >or= 60 mg/dL High HDL Cholesterol Serum or plasma cholesterol in VLDL measurement (mass/volume)on 01-04-2022 Cholesterol in VLDL [Mass/Vol] 49 mg/dL 5-40 [facility] Work Phone: Serum or plasma low density lipoprotein (LDL) cholesterol measurement (mass/volume)on 01-04-2022 Cholesterol in LDL [Mass/Vol] 57 mg/dL 0-130 [facility] Work Phone: No Panel Informationon 12-07 [place] Level 0.50 mmol/L 0.60-1.20 [facility] Work Phone: Absolute lymphocyte counton 12-03-2021 Lymphocytes Auto (Unsp spec) [#/Vol] 2.02 10*3/uL 0.83-4.51 [facility] Work Phone: Basophil percentageon 2021 Basophils/100 WBC (Bld) 1.1 % 0-1 [facility] Work Phone: Chloride [Moles/Vol] 108 mmol/L 98-107 [facility] Work Phone: Eosinophils/100 WBC (Bld) 2.9 % 0-5 [facility] Work Phone: Glucose [Mass/Vol] 118 mg/dL 74-106 [facility] Work Phone: Comment on above: Fasting Glucose resu lt from 100 to 125 mg/dL suggests IMPAIRED HOMEOSTASIS per A.D.A. criteria. Neutrophils (Bld) [#/Vol] 4.3 10*3/uL 2.0-7.7 [facility] Work Phone: Neutrophils/100 WBC (Bld) 57.2 % 47-70 [facility] Work Phone: Potassium [Moles/Vol] 3.9 mmol/L 3.5-5.1 [facility] Work Phone: Sodium [Moles/Vol] 140 mmol/L 136-145 [facility] Work Phone: WBC (Bld) [#/Vol] 7.5 10*3/uL 4.4-11.0 [facility] Work Phone: Bilirubin Test strip Ql (U)o n 12-03-2021 Bilirubin Ql (U) Negative Negative [facility] Work Phone: Blood erythrocytes count (nu mber/volume)on 12-03-2021 RBC (Bld) [#/Vol] 4.70 10*6/uL 4.6-6.2 [facility] Work Phone: Blood hemoglobin measurement (mass/volume)on 12-03-2021 Hemoglobin (Bld) [Mass/Vol] 13.7 g/dL 13.0-16.5 [facility] Work Phone: Blood lymphocytes/100 leukoc yteson 12-03-2021 Lymphocytes/100 WBC (Bld) 27.1 % 19-41 [facility] Work Phone: Blood monocytes/100 leukocyt eson 12-03-2021 Monocytes/100 WBC (Bld) 11.0 % 0-10 [facility] Work Phone: Blood platelet mean volumeon 12-03-2021 Platelet mean volume (Bld) [Entitic vol] 9.1 fL 6.2-12.0 [facility] Work Phone: Culture, urineon 12-03-2021 Bacteria identified Cx Nom (U) Culture exhibits no growth. [facility] Work Phone: [phone] Determination of erythrocyte mean corpuscular volume (MCV)on 12-03-2021 MCV (RBC) [Entitic vol] 88.9 fL 80-94 [facility] Work Phone: Hematocrit Auto (Bld) [Volum e fraction]on 12-03-2021 Hematocrit (Bld) [Volume fraction] 41.8 % 40-54 [facility] Work Phone: Ketones Test strip Ql (U)on 12-03-2021 Ketones Ql (U) Negative Negative [facility] Work Phone: [phone] Laboratory - Chemistry and C hemistry - challengeon 12-03-2021 CO2 [Moles/Vol] 27.0 mmol/L 21.0-32.0 [facility] Work Phone: Urea nitrogen/Creatinine [Mass ratio] 9.7 mg/mg - [facility] Work Phone: Laboratory - Hematology and Cell countson 12-03-2021 Erythrocyte distribution width (RBC) [Entitic vol] 43.4 fL 35.1-43.9 [facility] Work Phone: [phone] Erythrocyte distribution width (RBC) [Ratio] 13.2 % 11.6-14.6 [facility] Work Phone: Immature granulocytes/100 WBC (Bld) 0.700 % 0.0-0.9 [facility] Work Phone: Comment on above: IG% - Immature Granu locytes (promyelocytes, myelocytes and metamyelocytes) > 1% indicates that a LEFT SHIFT is Present. MCH (RBC) [Entitic mass] 29.1 pg 27.0-32.0 [facility] Work Phone: Nucleated RBC/100 WBC (Bld) [Ratio] 0 % 0-5 [facility] Work Phone: MCHC Auto (RBC) [Mass/Vol]on 12-03-2021 MCHC (RBC) [Mass/Vol] 32.8 g/dL 32-36 [facility] Work Phone: Nitrite Test strip Ql (U)on 12-03-2021 Nitrite Ql (U) Negative Negative [facility] Work Phone: No Panel Informationon 12-03 Estimated GFR (MDRD) Amer 43 mL/min >60 [facility] Work Phone: Comment on above: GFR Calc Estimated GFR (MDRD) Non-Af Amer 35 mL/min >60 [facility] Work Phone: Comment on above: Non- GFR Calc [place] Level 0.50 mmol/L 0.60-1.20 [facility] Work Phone: Platelets bldon 12-03-2021 Platelets (Bld) [#/Vol] 230 10*3/uL 150-450 [facility] Work Phone: Protein Test strip Ql (U)on 12-03-2021 Protein Ql (U) Negative Negative [facility] Work Phone: Serum or plasma calcium you urement (mass/volume)on 12-03-2021 Calcium [Mass/Vol] 8.9 mg/dL 8.5-10.1 [facility] Work Phone: Serum or plasma creatinine m easurement (mass/volume)on 12-03-2021 Creatinine [Mass/Vol] 2.07 mg/dL 0.70-1.30 [facility] Work Phone: Comment on above: The validity of the calculated GFR & GFRAA in patients over 70 years has not been determined. Clinical correlation is essential. Serum or plasma urea nitroge n measurement (mass/volume)on 12-03-2021 Urea nitrogen [Mass/Vol] 20 mg/dL 7-18 [facility] Work Phone: Thin prep Papanicolaou smear with manual screeningon 12-03-2021 Thin prep Papanicolaou smear with manual screening 5 5-15 [facility] Work Phone: Urine blood detectionon 11-15 RBC Ql (U) Negative Negative [facility] Work Phone: Urine clarityon 12-03-2021 Clarity (U) Clear Clear [facility] Work Phone: Urine color determinationon 12-03-2021 Color (U) Yellow Yellow [facility] Work Phone: Urine glucose detectionon Glucose Ql (U) Normal mg/dl Normal [facility] Work Phone: Urine leukocyte esterase det ection by dipstickon 12-03-2021 Leukocyte esterase Test strip Ql (U) Negative Negative [facility] Work Phone: [phone] Urine pHon 12-03-2021 pH (U) 7.0 [pH] [facility] Work Phone: [phone] Urine specific gravity measu rementon 12-03-2021 Specific gravity (U) [Rel density] 1.010 [facility] Work Phone: Urobilinogen Auto test strip Ql (U)on 12-03-2021 Urobilinogen Ql (U) Normal mg/dl Normal [facility] Work Phone: No Panel Informationon 11-09 [place] Level 0.40 mmol/L 0.60-1.20 [facility] Work Phone: Absolute lymphocyte counton 11-05-2021 Lymphocytes Auto (Unsp spec) [#/Vol] 2.12 10*3/uL 0.83-4.51 [facility] Work Phone: Basophil percentageon 2020 Chloride [Moles/Vol] 110 mmol/L 98-107 [facility] Work Phone: Eosinophils/100 WBC (Bld) 2.8 % 0-5 [facility] Work Phone: Glucose [Mass/Vol] 132 mg/dL 74-106 [facility] Work Phone: [phone] Comment on above: Fasting Glucose resu lt greater than or equal to 126 mg/dL suggests DIABETES MELLITUS per A.D.A. criteria.Please note revised GLUCOSE reference range effective 2017. Neutrophils (Bld) [#/Vol] 5.7 10*3/uL 2.0-7.7 [facility] Work Phone: Potassium [Moles/Vol] 4.0 mmol/L 3.5-5.1 [facility] Work Phone: Sodium [Moles/Vol] 143 mmol/L 136-145 [facility] Work Phone: WBC (Bld) [#/Vol] 9.3 10*3/uL 4.4-11.0 [facility] Work Phone: [phone] Basophil percentage 10-25 SEEN /hpf [facility] Work Phone: [phone] Bilirubin Test strip Ql (U)o n 11-05-2021 Bilirubin Ql (U) Negative Negative [facility] Work Phone: [phone] Blood erythrocytes count (nu mber/volume)on 11-05-2021 RBC (Bld) [#/Vol] 4.57 10*6/uL 4.6-6.2 [facility] Work Phone: [phone] Blood hemoglobin measurement (mass/volume)on 11-05-2021 Hemoglobin (Bld) [Mass/Vol] 13.4 g/dL 13.0-16.5 [facility] Work Phone: Blood lymphocytes/100 leukoc yteson 11-05-2021 Lymphocytes/100 WBC (Bld) 22.9 % 19-41 [facility] Work Phone: Blood monocytes/100 leukocyt eson 11-05-2021 Monocytes/100 WBC (Bld) 10.9 % 0-10 [facility] Work Phone: Blood platelet mean volumeon 11-05-2021 Platelet mean volume (Bld) [Entitic vol] 9.1 fL 6.2-12.0 [facility] Work Phone: Culture, urineon 11-05-2021 Bacteria identified Cx Nom (U) Streptococcus mitis/ oralis [facility] Work Phone: [phone] Determination of erythrocyte mean corpuscular volume (MCV)on 11-05-2021 MCV (RBC) [Entitic vol] 89.5 fL 80-94 [facility] Work Phone: Hematocrit Auto (Bld) [Volum e fraction]on 11-05-2021 Hematocrit (Bld) [Volume fraction] 40.9 % 40-54 [facility] Work Phone: [phone] Ketones Test strip Ql (U)on 11-05-2021 Ketones Ql (U) Negative Negative [facility] Work Phone: [phone] Laboratory - Chemistry and C hemistry - challengeon 11-05-2021 CO2 [Moles/Vol] 28.0 mmol/L 21.0-32.0 [facility] Work Phone: [phone] Urea nitrogen/Creatinine [Mass ratio] 11.6 mg/mg 10-20 [facility] Work Phone: Laboratory - Hematology and Cell countson 11-05-2021 Basophils/100 WBC (Unsp spec) 0.9 % 0-1 [facility] Work Phone: [phone] Erythrocyte distribution width (RBC) [Entitic vol] 43.5 fL 35.1-43.9 [facility] Work Phone: [phone] Erythrocyte distribution width (RBC) [Ratio] 13.3 % 11.6-14.6 [facility] Work Phone: Immature granulocytes/100 WBC (Bld) 0.600 % 0.0-0.9 [facility] Work Phone: Comment on above: IG% - Immature Granu locytes (promyelocytes, myelocytes and metamyelocytes) > 1% indicates that a LEFT SHIFT is Present. MCH (RBC) [Entitic mass] 29.3 pg 27.0-32.0 [facility] Work Phone: Neutrophils/100 WBC (Bld) 61.9 % 47-70 [facility] Work Phone: Nucleated RBC/100 WBC (Bld) [Ratio] 0 % 0-5 [facility] Work Phone: MCHC Auto (RBC) [Mass/Vol]on 11-05-2021 MCHC (RBC) [Mass/Vol] 32.8 g/dL 32-36 [facility] Work Phone: Mucus LM Ql (Urine sed)on Mucus Ql (Urine sed) 0 SEEN /hpf [facility] Work Phone: Nitrite Test strip Ql (U)on 11-05-2021 Nitrite Ql (U) Negative Negative [facility] Work Phone: No Panel Informationon 11-05 Estimated GFR (MDRD) Amer 47 mL/min >60 [facility] Work Phone: Comment on above: GFR Calc Estimated GFR (MDRD) Non-Af Amer 39 mL/min >60 [facility] Work Phone: Comment on above: Non- GFR Calc Platelets bldon 11-05-2021 Platelets (Bld) [#/Vol] 218 10*3/uL 150-450 [facility] Work Phone: Protein Test strip Ql (U)on 11-05-2021 Protein Ql (U) 15 mg/dl Negative [facility] Work Phone: Serum or plasma albumin you urement (mass/volume)on 11-05-2021 Albumin [Mass/Vol] 2.7 g/dL 3.2-5.0 [facility] Work Phone: Serum or plasma calcium you urement (mass/volume)on 11-05-2021 Calcium [Mass/Vol] 8.7 mg/dL 8.5-10.1 [facility] Work Phone: Serum or plasma creatinine m easurement (mass/volume)on 11-05-2021 Creatinine [Mass/Vol] 1.90 mg/dL 0.70-1.30 [facility] Work Phone: Comment on above: The validity of the calculated GFR & GFRAA in patients over 70 years has not been determined. Clinical correlation is essential. Serum or plasma urea nitroge n measurement (mass/volume)on 11-05-2021 Urea nitrogen [Mass/Vol] 22 mg/dL 7-18 [facility] Work Phone: Squamous epithelial cells de tection in urine sediment by light microscopyon 11-05-2021 Epithelial cells.squamous LM Ql (Urine sed) 0-5 SEEN /hpf [facility] Work Phone: Thin prep Papanicolaou smear with manual screeningon 11-05-2021 Thin prep Papanicolaou smear with manual screening 5 5-15 [facility] Work Phone: Urine blood detectionon 10-15 RBC Ql (U) Negative Negative [facility] Work Phone: RBC Ql (U) 0 SEEN /hpf [facility] Work Phone: Urine clarityon 11-05-2021 Clarity (U) Sl. Cloudy Clear [facility] Work Phone: Urine color determinationon 11-05-2021 Color (U) Yellow Yellow [facility] Work Phone: Urine creatinine measurement (mass/volume)on 11-05-2021 Creatinine (U) [Mass/Vol] 169.00 mg/dL NO RANGE EST. [facility] Work Phone: Urine glucose detectionon Glucose Ql (U) Normal mg/dl Normal [facility] Work Phone: [phone] Urine leukocyte esterase det ection by dipstickon 11-05-2021 Leukocyte esterase Test strip Ql (U) 100 /ul Negative [facility] Work Phone: [phone] Urine pHon 11-05-2021 pH (U) 6.0 [pH] [facility] Work Phone: [phone] Urine protein measurement (m ass/volume)on 11-05-2021 Protein (U) [Mass/Vol] 21.0 mg/dL 0.0-11.8 [facility] Work Phone: [phone] Urine protein/creatinine mas s ratioon 11-05-2021 Protein/Creatinine (U) [Mass ratio] 124 mg/g CRE 0-200 [facility] Work Phone: Urine sediment bacteria coun t by microscopy (number/high power field)on 11-05-2021 Bacteria LM.HPF (Urine sed) [#/Area] 0 /[HPF] None Seen [facility] Work Phone: Urine specific gravity measu rementon 11-05-2021 Specific gravity (U) [Rel density] 1.020 [facility] Work Phone: Urobilinogen Auto test strip Ql (U)on 11-05-2021 Urobilinogen Ql (U) Normal mg/dl Normal [facility] Work Phone: CBC Auto Differentialon 10-15 Erythrocyte distribution width (RBC) [Ratio] 14.5 % 11.5 - 14.5 % [place] Hematocrit (Bld) [Volume fraction] 42.1 % 40 - 52 % [place] Hemoglobin (Bld) [Mass/Vol] 13.8 g/dL 13 - 18 g/dL [place] Interpretation and review of laboratory results Abnormal [place] MCH (RBC) [Entitic mass] 28.8 pg 26 - 34 pg [place] MCHC (RBC) [Mass/Vol] 32.7 % 32 - 36 % [place] MCV (RBC) [Entitic vol] 88.1 fL 80 - 98 fL M [place], [place] Platelet mean volume (Bld) [Entitic vol] 7.9 fL 7.4 - 10.4 fL [place] Platelets (Bld) [#/Vol] 356 10*3/uL 140 - 440 10*3/uL [place] RBC (Bld) [#/Vol] 4.78 10*6/uL 4.4 - 5.9 10*6/uL [place] WBC (Bld) [#/Vol] 16.4 10*3/uL High 3.6 - 10.7 10*3/uL [place] Test Performed by [facility], [address] [place]in [address] [place], [place] Comp Panel with Mg Reflexon 11-04-2020 Calcium [Mass/Vol] 8.9 mg/dL Normal 8.4-10.4 [facility] Comment on above: Performed By: #### H EMOG, CMP3M, CRP2, LDH3, FIBGN, DDI2, APTT, FERR3 #### [facility] [address] [place] [address] ALP [Catalytic activity/Vol] 83 U/L Normal 38-126 [facility] Comment on above: Performed By: #### H EMOG, CMP3M, CRP2, LDH3, FIBGN, DDI2, APTT, FERR3 #### [facility] [address] [place] [address] ALT [Catalytic activity/Vol] 133 U/L High 0-49 [facility] Comment on above: Result Comment: The ALT test is performed by an updated assay method. Please note that the reference intervals have been changed and are now sex specific. Performed By: #### H EMOG, CMP3M, CRP2, LDH3, FIBGN, DDI2, APTT, FERR3 #### [facility] [address] [place] [address] Anion gap [Moles/Vol] 9 Normal [facility] Comment on above: Performed By: #### H EMOG, CMP3M, CRP2, LDH3, FIBGN, DDI2, APTT, FERR3 #### [facility] [address] [place] [address] AST [Catalytic activity/Vol] 39 U/L Normal 15-46 [facility] Comment on above: Performed By: #### H EMOG, CMP3M, CRP2, LDH3, FIBGN, DDI2, APTT, FERR3 #### [facility] [address] [place] [address] Bilirubin [Mass/Vol] 0.6 mg/dL Normal 0.2-1.3 [facility] Comment on above: Performed By: #### H EMOG, CMP3M, CRP2, LDH3, FIBGN, DDI2, APTT, FERR3 #### [facility] [address] [place] [address] CO2 [Moles/Vol] 20 mmol/L Low 22-30 [facility] Comment on above: Performed By: #### H EMOG, CMP3M, CRP2, LDH3, FIBGN, DDI2, APTT, FERR3 #### [facility] [address] [place] [address] Glucose [Mass/Vol] 140 mg/dL High 70-100 [facility] Comment on above: Performed By: #### H EMOG, CMP3M, CRP2, LDH3, FIBGN, DDI2, APTT, FERR3 #### [facility] [address] [place] [address] Protein [Mass/Vol] 6.1 g/dL Low 6.3-8.2 [facility] Comment on above: Performed By: #### H EMOG, CMP3M, CRP2, LDH3, FIBGN, DDI2, APTT, FERR3 #### [facility] [address] [place] [address] Urea nitrogen [Mass/Vol] 41 mg/dL High 7-20 [facility] Comment on above: Performed By: #### H EMOG, CMP3M, CRP2, LDH3, FIBGN, DDI2, APTT, FERR3 #### [facility] [address] [place] [address] Creatinine [Mass/Vol] 1.84 mg/dL High 0.52-1.25 [facility] Comment on above: Performed By: #### H EMOG, CMP3M, CRP2, LDH3, FIBGN, DDI2, APTT, FERR3 #### [facility] [address] [place] [address] GFR/1.73 sq M predicted among blacks MDRD (S/P/Bld) [Vol rate/Area] 46.0 mL/min/{1.73_m2} Abnormal >60 [facility] Comment on above: Performed By: #### H EMOG, CMP3M, CRP2, LDH3, FIBGN, DDI2, APTT, FERR3 #### [facility] [address] [place] [address] GFR/1.73 sq M predicted among non-blacks MDRD (S/P/Bld) [Vol rate/Area] 39.7 mL/min/{1.73_m2} Abnormal >60 [facility] Comment on above: Result Comment: KDIG O [...] CRP2, LDH3, FIBGN, DDI2, APTT, FERR3 #### [facility] [address] [facility] [place] [address] Albumin [Mass/Vol] 3.4 g/dL Low 3.5-5.0 [facility] Comment on above: Performed By: #### H EMOG, CMP3M, CRP2, LDH3, FIBGN, DDI2, APTT, FERR3 #### [facility] [address] [place] [address] Chloride [Moles/Vol] 106 mmol/L Normal 98-107 [facility] Comment on above: Performed By: #### H EMOG, CMP3M, CRP2, LDH3, FIBGN, DDI2, APTT, FERR3 #### [facility] [address] [place] [address] Potassium [Moles/Vol] 4.3 mmol/L Normal 3.5-5.1 [facility] Comment on above: Performed By: #### H EMOG, CMP3M, CRP2, LDH3, FIBGN, DDI2, APTT, FERR3 #### [facility] [address] [place] [address] Sodium [Moles/Vol] 134 mmol/L Low 135-145 [facility] Comment on above: Performed By: #### H EMOG, CMP3M, CRP2, LDH3, FIBGN, DDI2, APTT, FERR3 #### [facility] [address] [place] [address] Comprehensive Metabolic Pane l w/ Reflex to MGon 11-04-2020 Albumin [Mass/Vol] 3.4 g/dL Low 3.5 - 5 g/dL [place] ALP [Catalytic activity/Vol] 83 U/L 38 - 126 U/L [place] ALT [Catalytic activity/Vol] 133 U/L High 0 - 49 U/L [place] Comment on above: The ALT test is perf ormed by an updated assay method. Please note that the reference intervals have been changed and are now sex specific. Anion gap [Moles/Vol] 9 mmol/L [place] AST [Catalytic activity/Vol] 39 U/L 15 - 46 U/L [place] Bilirubin Ql (U) 0.6 mg/dL 0.2 - 1.3 mg/dL [place] Calcium [Mass/Vol] 8.9 mg/dL 8.4 - 10. 4 mg/dL [place] Chloride [Moles/Vol] 106 mmol/L 98 - 10 7 mmol/L [place] CO2 [Moles/Vol] 20 mmol/L Low 22 - 30 mmol/L [place] Creatinine [Mass/Vol] 1.84 mg/dL High 0.52 - 1.25 mg/dL [place] EGFR IF NonAfrican Haitian 39.7 mL/min Abnormal >60 [place] Comment on above: KDIGO guidelines pro [...] (S/P/Bld) [Vol rate/Area] 46.0 mL/min/{1.73_m2} Abnormal >60 [place] Glucose [Mass/Vol] 140 mg/dL High 70 - 100 mg/dL [place] Interpretation and review of laboratory results Abnormal [place] Potassium [Moles/Vol] 4.3 mmol/L 3.5 - 5.1 mmol/L [place] Protein [Mass/Vol] 6.1 g/dL Low 6.3 - 8.2 g/dL [place] Sodium [Moles/Vol] 134 mmol/L Low 135 - 145 mmol/L [place] Urea nitrogen [Mass/Vol] 41 mg/dL High 7 - 20 mg/dL [place] Test Performed by [facility], [address] [place], [address] Hemogram w/ Autodiffon 11-04 Erythrocyte distribution width (RBC) [Ratio] 14.5 % Normal 11.5-14.5 [facility] Comment on above: Performed By: #### H EMOG, CMP3M, CRP2, LDH3, FIBGN, DDI2, APTT, FERR3 #### [facility] [address] [place] [address] Hematocrit (Bld) [Volume fraction] 42.1 % Normal 40.0-52.0 [facility] Comment on above: Performed By: #### H EMOG, CMP3M, CRP2, LDH3, FIBGN, DDI2, APTT, FERR3 #### [facility] [address] [place] [address] Hemoglobin (Bld) [Mass/Vol] 13.8 g/dL Normal 13.0-18.0 [facility] Comment on above: Performed By: #### H EMOG, CMP3M, CRP2, LDH3, FIBGN, DDI2, APTT, FERR3 #### [facility] [address] [place] [address] MCH (RBC) [Entitic mass] 28.8 pg Normal 26.0-34.0 [facility] Comment on above: Performed By: #### H EMOG, CMP3M, CRP2, LDH3, FIBGN, DDI2, APTT, FERR3 #### [facility] [address] [place] [address] MCHC (RBC) [Mass/Vol] 32.7 % Normal 32.0-36.0 [facility] Comment on above: Performed By: #### H EMOG, CMP3M, CRP2, LDH3, FIBGN, DDI2, APTT, FERR3 #### [facility] [address] [place] [address] MCV (RBC) [Entitic vol] 88.1 fL Normal 80.0-98.0 [facility] Comment on above: Performed By: #### H EMOG, CMP3M, CRP2, LDH3, FIBGN, DDI2, APTT, FERR3 #### [facility] [address] [place] [address] Platelet mean volume (Bld) [Entitic vol] 7.9 fL Normal 7.4-10.4 [facility] Comment on above: Performed By: #### H EMOG, CMP3M, CRP2, LDH3, FIBGN, DDI2, APTT, FERR3 #### [facility] [address] [place] [address] Platelets (Bld) [#/Vol] 356 10*3/uL Normal 140-440 [facility] Comment on above: Performed By: #### H EMOG, CMP3M, CRP2, LDH3, FIBGN, DDI2, APTT, FERR3 #### [facility] [address] [place] [address] RBC (Bld) [#/Vol] 4.78 10*6/uL Normal 4.40-5.90 [facility] Comment on above: Performed By: #### H EMOG, CMP3M, CRP2, LDH3, FIBGN, DDI2, APTT, FERR3 #### [facility] [address] [place] [address] WBC (Bld) [#/Vol] 16.4 10*3/uL High 3.6-10.7 [facility] Comment on above: Performed By: #### H EMOG, CMP3M, CRP2, LDH3, FIBGN, DDI2, APTT, FERR3 #### [facility] [address] [place] [address] Manual Diffon 11-04-2020 Abs Baso Cnt 0.0 10*3/uL Normal 0.0-0.2 [facility] Comment on above: Performed By: #### H EMOG, CMP3M, CRP2, LDH3, FIBGN, DDI2, APTT, FERR3 #### [facility] [address] [place] [address] Abs Eosin Cnt 0.0 10*3/uL Normal 0.0-0.5 [facility] Comment on above: Performed By: #### H EMOG, CMP3M, CRP2, LDH3, FIBGN, DDI2, APTT, FERR3 #### [facility] [address] [place] [address] Abs Lymph Cnt 1.0 10*3/uL Low 1.1-4.5 [facility] Comment on above: Performed By: #### H EMOG, CMP3M, CRP2, LDH3, FIBGN, DDI2, APTT, FERR3 #### [facility] [address] [place] [address] Abs Monocyte Cnt 1.3 10*3/uL High 0.2-1.1 [facility] Comment on above: Performed By: #### H EMOG, CMP3M, CRP2, LDH3, FIBGN, DDI2, APTT, FERR3 #### [facility] [address] [place] [address] Abs Neutrophile Cnt 13.1 10*3/uL High 2.2-8.2 [facility] Comment on above: Performed By: #### H EMOG, CMP3M, CRP2, LDH3, FIBGN, DDI2, APTT, FERR3 #### [facility] [address] [place] [address] Anisocytosis Ql (Bld) Slight Normal [facility] Comment on above: Performed By: #### H EMOG, CMP3M, CRP2, LDH3, FIBGN, DDI2, APTT, FERR3 #### [facility] [address] [place] [address] Bands 2 % Normal 0-3 [facility] Comment on above: Performed By: #### H EMOG, CMP3M, CRP2, LDH3, FIBGN, DDI2, APTT, FERR3 #### [facility] [address] [place] [address] Basophils 0 % Normal 0-2 [facility] Comment on above: Performed By: #### H EMOG, CMP3M, CRP2, LDH3, FIBGN, DDI2, APTT, FERR3 #### [facility] [address] [place] [address] Danya Cells Slight Normal [facility] Comment on above: Performed By: #### H EMOG, CMP3M, CRP2, LDH3, FIBGN, DDI2, APTT, FERR3 #### [facility] [address] [place] [address] Cells counted 100 Normal [facility] Comment on above: Performed By: #### H EMOG, CMP3M, CRP2, LDH3, FIBGN, DDI2, APTT, FERR3 #### [facility] [address] [place] [address] Eosinophils 0 % Low 1-6 [facility] Comment on above: Performed By: #### H EMOG, CMP3M, CRP2, LDH3, FIBGN, DDI2, APTT, FERR3 #### [facility] [address] [place] [address] Lymphocytes 6 % Low 20-40 [facility] Comment on above: Performed By: #### H EMOG, CMP3M, CRP2, LDH3, FIBGN, DDI2, APTT, FERR3 #### [facility] [address] [place] [address] Metamyelocytes 5 % Abnormal <1 [facility] Comment on above: Performed By: #### H EMOG, CMP3M, CRP2, LDH3, FIBGN, DDI2, APTT, FERR3 #### [facility] [address] [place] [address] Monocytes 8 % Normal 2-10 [facility] Comment on above: Performed By: #### H EMOG, CMP3M, CRP2, LDH3, FIBGN, DDI2, APTT, FERR3 #### [facility] [address] [place] [address] Myelocytes 1 % Abnormal <1 [facility] Comment on above: Performed By: #### H EMOG, CMP3M, CRP2, LDH3, FIBGN, DDI2, APTT, FERR3 #### [facility] [address] [place] [address] Poikilocytosis Slight Normal [facility] Comment on above: Performed By: #### H EMOG, CMP3M, CRP2, LDH3, FIBGN, DDI2, APTT, FERR3 #### [facility] [address] [place] [address] RBC morphology finding Nom (Bld) ABNORMAL Normal [facility] Comment on above: Performed By: #### H EMOG, CMP3M, CRP2, LDH3, FIBGN, DDI2, APTT, FERR3 #### [facility] [address] [place] [address] Seg Neutrophils 78 % Normal 40-80 [facility] Comment on above: Performed By: #### H EMOG, CMP3M, CRP2, LDH3, FIBGN, DDI2, APTT, FERR3 #### [facility] [address] [place] [address] Manual Differentialon 2019 Absolute Baso # 0.0 10*3/uL 0 - 0.2 10*3/uL [facility] Absolute Eos # 0.0 10*3/uL 0 - 0.5 10*3/uL [facility] Absolute Lymph # 1.0 10*3/uL Low 1.1 - 4.5 10*3/uL [facility] Absolute [place] # 1.3 10*3/uL High 0.2 - 1.1 10*3/uL [facility] Absolute Neut # 13.1 10*3/uL High 2.2 - 8.2 10*3/uL [facility] Anisocytosis Ql (Bld) Slight [facility] Bands 2 % 0 - 3 % [facility] [place] Basophils 0 % 0 - 2 % [facility] [place] Cells Slight [facility] Eosinophils 0 % Low 1 - 6 % [facility] Interpretation and review of laboratory results Abnormal [facility] Lymphocytes 6 % Low 20 - 40 % [facility] [place] Metamyelocytes 5 % Abnormal <1 [facility] [place] Monocytes 8 % 2 - 10 % [facility] [place] Myelocytes 1 % Abnormal <1 [facility] [place] Poikilocytes Slight [facility] RBC morphology finding Nom (Bld) ABNORMAL [facility] Seg Neutrophils 78 % 40 - 80 % [facility] [place] TOTAL CELLS COUNTED 100 [facility] [place] Test Performed by [facility], [address] [place], [place] [address] [place] Add On Lab Teston 11-03-2020 Sodium [Moles/Vol] Accepted [place] Comment on above: Specimen available & acceptable for analysis. Test Performed by [facility], [address] [place], [place] [address] [place] Add on test from HISon 11-03 Add on test from HIS Accepted Normal [facility] Comment on above: Result Comment: Spec imen available & acceptable for analysis. Performed By: #### H EMOG, CMP3M, CRP2, LDH3, FIBGN, DDI2, APTT, FERR3 #### [facility] [address] [place] [address] CBC Auto Differentialon 10-15 Erythrocyte distribution width (RBC) [Ratio] 14.3 % 11.5 - 14.5 % [place] Hematocrit (Bld) [Volume fraction] 39.0 % Low 40 - 52 % [place] Hemoglobin (Bld) [Mass/Vol] 12.8 g/dL Low 13 - 18 g/dL [place] Interpretation and review of laboratory results Abnormal [place] MCH (RBC) [Entitic mass] 28.7 pg 26 - 34 pg [place] MCHC (RBC) [Mass/Vol] 32.8 % 32 - 36 % [place] MCV (RBC) [Entitic vol] 87.6 fL 80 - 98 fL [place] Platelet mean volume (Bld) [Entitic vol] 7.5 fL 7.4 - 10.4 fL [place] Platelets (Bld) [#/Vol] 332 10*3/uL 140 - 440 10*3/uL [place] RBC (Bld) [#/Vol] 4.45 10*6/uL 4.4 - 5.9 10*6/uL [place] WBC (Bld) [#/Vol] 15.6 10*3/uL High 3.6 - 10.7 10*3/uL [place] Test Performed by [facility], [address] [place], [place] [address] [place] CR Chest PA/LATon 11-03-2020 CR Chest PA/LAT Patient Name: REGGIE WILSON [facility]#: [id number] Diagnostic Radiology ACCESSION EXAM DATE/TIME PROCEDURE ORDERING PROVIDER [id number] 11/03/2020 10:20 EST CR Chest PA and LAT MD DIAZ IMOLA KINGA CPT code 90433 Reason For Exam (CR Chest PA and [...] Improving bilateral infiltrates. Report Dictated on Workstation: [id number] Final Dictating Physician: MD BURDICK JEFFREY Signed Date and Time: 11/03/2020 10:58 am Signed by: MD BURDICK JEFFREY Transcribed Date and Time: 11/03/2020 10:59 Normal [facility] Comp Panel with Mg Reflexon 11-03-2020 Calcium [Mass/Vol] 9.0 mg/dL Normal 8.4-10.4 [facility] Comment on above: Performed By: #### H EMOG, CMP3M, CRP2, LDH3, FIBGN, DDI2, APTT, FERR3 #### [facility] [address] [place] [address] Anion gap [Moles/Vol] 5 Normal [facility] Comment on above: Performed By: #### H EMOG, CMP3M, CRP2, LDH3, FIBGN, DDI2, APTT, FERR3 #### [facility] [address] [place] [address] Bilirubin [Mass/Vol] 0.7 mg/dL Normal 0.2-1.3 [facility] Comment on above: Performed By: #### H EMOG, CMP3M, CRP2, LDH3, FIBGN, DDI2, APTT, FERR3 #### [facility] [address] [place] [address] Creatinine [Mass/Vol] 2.08 mg/dL High 0.52-1.25 [facility] Comment on above: Performed By: #### H EMOG, CMP3M, CRP2, LDH3, FIBGN, DDI2, APTT, FERR3 #### [facility] [address] [place] [address] GFR/1.73 sq M predicted among blacks MDRD (S/P/Bld) [Vol rate/Area] 39.6 mL/min/{1.73_m2} Abnormal >60 [facility] Comment on above: Performed By: #### H EMOG, CMP3M, CRP2, LDH3, FIBGN, DDI2, APTT, FERR3 #### [facility] [address] [place] [address] GFR/1.73 sq M predicted among non-blacks MDRD (S/P/Bld) [Vol rate/Area] 34.2 mL/min/{1.73_m2} Abnormal >60 [facility] Comment on above: Result Comment: KDIG O [...] CRP2, LDH3, FIBGN, DDI2, APTT, FERR3 #### [facility] [address] [place] [address] Albumin [Mass/Vol] 3.4 g/dL Low 3.5-5.0 [facility] Comment on above: Performed By: #### H EMOG, CMP3M, CRP2, LDH3, FIBGN, DDI2, APTT, FERR3 #### [facility] [address] [place] [address] Chloride [Moles/Vol] 107 mmol/L Normal 98-107 [facility] Comment on above: Performed By: #### H EMOG, CMP3M, CRP2, LDH3, FIBGN, DDI2, APTT, FERR3 #### [facility] [address] [place] [address] Potassium [Moles/Vol] 3.8 mmol/L Normal 3.5-5.1 [facility] Comment on above: Performed By: #### H EMOG, CMP3M, CRP2, LDH3, FIBGN, DDI2, APTT, FERR3 #### [facility] [address] [place] [address] Sodium [Moles/Vol] 134 mmol/L Low 135-145 [facility] Comment on above: Performed By: #### H EMOG, CMP3M, CRP2, LDH3, FIBGN, DDI2, APTT, FERR3 #### [facility] [address] [place] [address] ALP [Catalytic activity/Vol] 83 U/L Normal 38-126 [place] Comment on above: Performed By: #### H EMOG, CMP3M, CRP2, LDH3, FIBGN, DDI2, APTT, FERR3 #### [facility] [address] [place] [address] ALT [Catalytic activity/Vol] 175 U/L High 0-49 [place] Comment on above: Result Comment: The ALT test is performed by an updated assay method. Please note that the reference intervals have been changed and are now sex specific. Performed By: #### H EMOG, CMP3M, CRP2, LDH3, FIBGN, DDI2, APTT, FERR3 #### [facility] [address] [place] [address] The ALT test is perf ormed by an updated assay method. Please note that the reference intervals have been changed and are now sex specific. AST [Catalytic activity/Vol] 63 U/L High 15-46 [place] Comment on above: Performed By: #### H EMOG, CMP3M, CRP2, LDH3, FIBGN, DDI2, APTT, FERR3 #### [facility] [address] [place] [address] CO2 [Moles/Vol] 21 mmol/L Low 22-30 [place] Comment on above: Performed By: #### H EMOG, CMP3M, CRP2, LDH3, FIBGN, DDI2, APTT, FERR3 #### [facility] [address] [place] [address] Glucose [Mass/Vol] 139 mg/dL High 70-100 [place] Comment on above: Performed By: #### H EMOG, CMP3M, CRP2, LDH3, FIBGN, DDI2, APTT, FERR3 #### [facility] [address] [place] [address] Protein [Mass/Vol] 5.9 g/dL Low 6.3-8.2 [place] Comment on above: Performed By: #### H EMOG, CMP3M, CRP2, LDH3, FIBGN, DDI2, APTT, FERR3 #### [facility] [address] [place] [address] Urea nitrogen [Mass/Vol] 43 mg/dL High 7-20 [place] Comment on above: Performed By: #### H EMOG, CMP3M, CRP2, LDH3, FIBGN, DDI2, APTT, FERR3 #### [facility] [address] [place] [address] Comprehensive Metabolic Pane l w/ Reflex to MGon 11-03-2020 Albumin [Mass/Vol] 3.4 g/dL Low 3.5 - 5 g/dL [place] Anion gap [Moles/Vol] 5 mmol/L [place] Bilirubin Ql (U) 0.7 mg/dL 0.2 - 1.3 mg/dL [place] Calcium [Mass/Vol] 9.0 mg/dL 8.4 - 10. 4 mg/dL [place] Chloride [Moles/Vol] 107 mmol/L 98 - 10 7 mmol/L [place] Creatinine [Mass/Vol] 2.08 mg/dL High 0.52 - 1.25 mg/dL [place] EGFR IF NonAfrican [place]ian 34.2 mL/min Abnormal >60 [place] Comment on above: KDIGO guidelines pro [...] (S/P/Bld) [Vol rate/Area] 39.6 mL/min/{1.73_m2} Abnormal >60 [place] Interpretation and review of laboratory results Abnormal [place] Potassium [Moles/Vol] 3.8 mmol/L 3.5 - 5.1 mmol/L [place] Sodium [Moles/Vol] 134 mmol/L Low 135 - 145 mmol/L [place] Test Performed by [facility], [address] [place], [place], [place] [address] [place] Hemogram w/ Autodiffon 11-03 Erythrocyte distribution width (RBC) [Ratio] 14.3 % Normal 11.5-14.5 [facility] Comment on above: Performed By: #### H EMOG, CMP3M, CRP2, LDH3, FIBGN, DDI2, APTT, FERR3 #### [facility] [address] [place] [address] Hematocrit (Bld) [Volume fraction] 39.0 % Low 40.0-52.0 [facility] Comment on above: Performed By: #### H EMOG, CMP3M, CRP2, LDH3, FIBGN, DDI2, APTT, FERR3 #### [facility] [address] [place] [address] Hemoglobin (Bld) [Mass/Vol] 12.8 g/dL Low 13.0-18.0 [facility] Comment on above: Performed By: #### H EMOG, CMP3M, CRP2, LDH3, FIBGN, DDI2, APTT, FERR3 #### [facility] [address] [place] [address] MCH (RBC) [Entitic mass] 28.7 pg Normal 26.0-34.0 [facility] Comment on above: Performed By: #### H EMOG, CMP3M, CRP2, LDH3, FIBGN, DDI2, APTT, FERR3 #### [facility] [address] [place] [address] MCHC (RBC) [Mass/Vol] 32.8 % Normal 32.0-36.0 [facility] Comment on above: Performed By: #### H EMOG, CMP3M, CRP2, LDH3, FIBGN, DDI2, APTT, FERR3 #### [place] [address] [place] [address] MCV (RBC) [Entitic vol] 87.6 fL Normal 80.0-98.0 [facility] Comment on above: Performed By: #### H EMOG, CMP3M, CRP2, LDH3, FIBGN, DDI2, APTT, FERR3 #### [place] [address] [place] [address] Platelet mean volume (Bld) [Entitic vol] 7.5 fL Normal 7.4-10.4 [facility] Comment on above: Performed By: #### H EMOG, CMP3M, CRP2, LDH3, FIBGN, DDI2, APTT, FERR3 #### [place] [address] [place] [address] Platelets (Bld) [#/Vol] 332 10*3/uL Normal 140-440 [facility] Comment on above: Performed By: #### H EMOG, CMP3M, CRP2, LDH3, FIBGN, DDI2, APTT, FERR3 #### [facility] [address] [place] [address] RBC (Bld) [#/Vol] 4.45 10*6/uL Normal 4.40-5.90 [facility] Comment on above: Performed By: #### H EMOG, CMP3M, CRP2, LDH3, FIBGN, DDI2, APTT, FERR3 #### [facility] [address] [place] [address] WBC (Bld) [#/Vol] 15.6 10*3/uL High 3.6-10.7 [facility] Comment on above: Performed By: #### H EMOG, CMP3M, CRP2, LDH3, FIBGN, DDI2, APTT, FERR3 #### [facility] [address] [place] [address] Manual Diffon 11-03-2020 Abs Lymph Cnt 2.0 10*3/uL Normal 1.1-4.5 [facility] Comment on above: Performed By: #### H EMOG, CMP3M, CRP2, LDH3, FIBGN, DDI2, APTT, FERR3 #### [facility] [address] [place] [address] Abs Monocyte Cnt 2.2 10*3/uL High 0.2-1.1 [facility] Comment on above: Performed By: #### H EMOG, CMP3M, CRP2, LDH3, FIBGN, DDI2, APTT, FERR3 #### [facility] [address] [place] [address] Abs Neutrophile Cnt 11.4 10*3/uL High 2.2-8.2 [facility] Comment on above: Performed By: #### H EMOG, CMP3M, CRP2, LDH3, FIBGN, DDI2, APTT, FERR3 #### [facility] [address] [place] [address] Anisocytosis Ql (Bld) Slight Normal [facility] Comment on above: Performed By: #### H EMOG, CMP3M, CRP2, LDH3, FIBGN, DDI2, APTT, FERR3 #### [facility] [address] [place] [address] Bands 4 % High 0-3 [facility] Comment on above: Performed By: #### H EMOG, CMP3M, CRP2, LDH3, FIBGN, DDI2, APTT, FERR3 #### [facility] [address] [place] [address] [place] Cells Slight Normal [facility] Comment on above: Performed By: #### H EMOG, CMP3M, CRP2, LDH3, FIBGN, DDI2, APTT, FERR3 #### [facility] [address] [place] [address] Lymphocytes 13 % Low 20-40 [facility] Comment on above: Performed By: #### H EMOG, CMP3M, CRP2, LDH3, FIBGN, DDI2, APTT, FERR3 #### [facility] [address] [place] [address] Monocytes 14 % High 2-10 [facility] Comment on above: Performed By: #### H EMOG, CMP3M, CRP2, LDH3, FIBGN, DDI2, APTT, FERR3 #### [facility] [address] [place] [address] NRBC 1 /100{WBCs} High -1-0 [facility] Comment on above: Result Comment: Newb orn (<60 days) 1-10 Adult <1 Performed By: #### H EMOG, CMP3M, CRP2, LDH3, FIBGN, DDI2, APTT, FERR3 #### [facility] [address] [place] [address] RBC morphology finding Nom (Bld) ABNORMAL Normal [facility] Comment on above: Performed By: #### H EMOG, CMP3M, CRP2, LDH3, FIBGN, DDI2, APTT, FERR3 #### [facility] [address] [place] [address] Seg Neutrophils 69 % Normal 40-80 [facility] Comment on above: Performed By: #### H EMOG, CMP3M, CRP2, LDH3, FIBGN, DDI2, APTT, FERR3 #### [facility] [address] [place] [address] Tear Drop Forms Slight Normal [facility] Comment on above: Performed By: #### H EMOG, CMP3M, CRP2, LDH3, FIBGN, DDI2, APTT, FERR3 #### [facility] [address] [place] [address] Abs Baso Cnt 0.0 10*3/uL Normal 0.0-0.2 [facility] Comment on above: Performed By: #### H EMOG, CMP3M, CRP2, LDH3, FIBGN, DDI2, APTT, FERR3 #### [facility] [address] [place] [facility] Abs Eosin Cnt 0.0 10*3/uL Normal 0.0-0.5 [facility] Comment on above: Performed By: #### H EMOG, CMP3M, CRP2, LDH3, FIBGN, DDI2, APTT, FERR3 #### [facility] [address] [place] [address] Basophils 0 % Normal 0-2 [facility] Comment on above: Performed By: #### H EMOG, CMP3M, CRP2, LDH3, FIBGN, DDI2, APTT, FERR3 #### [facility] [address] [place] [address] Cells counted 100 Normal [facility] Comment on above: Performed By: #### H EMOG, CMP3M, CRP2, LDH3, FIBGN, DDI2, APTT, FERR3 #### [facility] [address] [place] [address] Eosinophils 0 % Low 1-6 [facility] Comment on above: Performed By: #### H EMOG, CMP3M, CRP2, LDH3, FIBGN, DDI2, APTT, FERR3 #### [facility] [address] [place] [address] Manual Differentialon 2019 Absolute Baso # 0.0 10*3/uL 0 - 0.2 10*3/uL [facility], [place] Absolute Eos # 0.0 10*3/uL 0 - 0.5 10*3/uL [place] Absolute Lymph # 2.0 10*3/uL 1.1 - 4.5 10*3/uL [place] Absolute [place] # 2.2 10*3/uL High 0.2 - 1.1 10*3/uL [facility] Absolute Neut # 11.4 10*3/uL High 2.2 - 8.2 10*3/uL [place] Anisocytosis Ql (Bld) [place] Bands 4 % High 0 - 3 % [facility] Basophils 0 % 0 - 2 % [facility] Cells [place] Eosinophils 0 % Low 1 - 6 % [place] Interpretation and review of laboratory results Abnormal [place] Lymphocytes 13 % Low 20 - 40 % [place] Monocytes 14 % High 2 - 10 % [place] nRBC 1 /100{WBCs} High -1 - 0 /100{WBCs} [place] Comment on above: [place] (<60 days) 1 -10 Adult <1 RBC morphology finding Nom (Bld) ABNORMAL [place] Seg Neutrophils 69 % 40 - 80 % [place] Tear Drop Cells [place] TOTAL CELLS COUNTED 100 [place] Test Performed by [facility], [address], [place], [place] [address] [place] Procalcitoninon 11-03-2020 Procalcitonin < 0.10 Normal <0.10 [facility] Comment on above: Performed By: #### H EMOG, CMP3M, CRP2, LDH3, FIBGN, DDI2, APTT, FERR3 #### [facility] [address] [place] [address] Procalcitonin <0.10 <0.10 ng/mL [place] Sodium [Moles/Vol] See Below [place] Comment on above: PCT <0.50 = Low risk of severe sepsis and/or septic shock. PCT >2.00 = High risk of severe sepsis and/or septic shock. Test Performed by [facility], [address] [place] [id number] [place], [place] Interpretation See Below Normal [facility] Comment on above: Result Comment: PCT <0.50 = Low risk of severe sepsis and/or septic shock. PCT >2.00 = High risk of severe sepsis and/or septic shock. Performed By: #### H EMOG, CMP3M, CRP2, LDH3, FIBGN, DDI2, APTT, FERR3 #### [facility] [address] [place] [address] XR CHEST (2 VW)on 11-03-2020 [facility], [facility] Incoming Radiology Results From [facility] - 11/03/2020 10:59 AM EST Patient Name: REGGIE LEÓN Diagnostic Radiology ACCESSION EXAM DATE/TIME PROCEDURE ORDERING PROVIDER [id number] 11/03/2020 10:20 EST CR Chest PA & LAT MD EMILY, FARRUKH MCCORMICK CPT code 22786 Reason For Exam (CR Chest PA & [...] JEFFREY Transcribed Date and Time: 11/03/2020 10:59 [place], [place] Patient Name: REGGIE PINTO Diagnostic Radiology ACCESSION EXAM DATE/TIME PROCEDURE ORDERING PROVIDER [id number] 11/03/2020 10:20 EST CR Chest PA & LAT MD EMILY, FARRUKH MCCORMICK CPT code 43084 Reason For Exam (CR Chest PA & [...] Improving bilateral infiltrates. Report Dictated on Workstation: [id number] --- Final --- Dictating Physician: MD BURDICK JEFFREY Signed Date and Time: 11/03/2020 10:58 am Signed by: MD BURDICK JEFFREY Transcribed Date and Time: 11/03/2020 10:59 [place] APTTon 11-02-2020 aPTT Coag (Bld) [Time] 30.4 s Normal 20.0-30.5 [facility] Comment on above: Result Comment: NOTE : The therapeutic time for Heparin anticoagulation, based on Xa activity inhibition, is an APTT of 46-80 seconds. Performed By: #### H EMOG, CMP3M, CRP2, LDH3, FIBGN, DDI2, APTT, FERR3 #### [facility] [address] [place] [address] aPTT Coag (Bld) [Time] 30.4 s 20 - 30.5 s [place] Comment on above: NOTE: The therapeuti c time for Heparin anticoagulation, based on Xa activity inhibition, is an APTT of 46-80 seconds. C-Reactive Proteinon 020 CRP [Mass/Vol] 10.2 mg/L High 0.0-6.0 [facility] Comment on above: Result Comment: . Performed By: #### H EMOG, CMP3M, CRP2, LDH3, FIBGN, DDI2, APTT, FERR3 #### [facility] [address] [place] [address] CRP [Mass/Vol] 10.2 mg/L High 0 - 6 mg/L [place] Comment on above: . CBCon 11-02-2020 Erythrocyte distribution width (RBC) [Ratio] 14.2 % 11.5 - 14.5 % [place] Hematocrit (Bld) [Volume fraction] 39.5 % Low 40 - 52 % [place] Hemoglobin (Bld) [Mass/Vol] 13.2 g/dL 13 - 18 g/dL [place] Interpretation and review of laboratory results Abnormal [place] MCH (RBC) [Entitic mass] 29.4 pg 26 - 34 pg [place] MCHC (RBC) [Mass/Vol] 33.5 % 32 - 36 % [place] MCV (RBC) [Entitic vol] 87.8 fL 80 - 98 fL [place] Platelet mean volume (Bld) [Entitic vol] 7.6 fL 7.4 - 10.4 fL [place] Platelets (Bld) [#/Vol] 340 10*3/uL 140 - 440 10*3/uL [place] RBC (Bld) [#/Vol] 4.49 10*6/uL 4.4 - 5.9 10*6/uL [place] WBC (Bld) [#/Vol] 13.0 10*3/uL High 3.6 - 10.7 10*3/uL [place] Test Performed by [facility], [address], [place], [place] [address] [place] Comp Panel with Mg Reflexon 11-02-2020 ALT [Catalytic activity/Vol] 198 U/L High 0-49 [facility] Comment on above: Result Comment: The ALT test is performed by an updated assay method. Please note that the reference intervals have been changed and are now sex specific. Performed By: #### H EMOG, CMP3M, CRP2, LDH3, FIBGN, DDI2, APTT, FERR3 #### [facility] [address] [place] [address] Calcium [Mass/Vol] 8.8 mg/dL Normal 8.4-10.4 [facility] Comment on above: Performed By: #### H EMOG, CMP3M, CRP2, LDH3, FIBGN, DDI2, APTT, FERR3 #### [facility] [address] [place] [address] Glucose [Mass/Vol] 135 mg/dL High 70-100 [facility] Comment on above: Performed By: #### H EMOG, CMP3M, CRP2, LDH3, FIBGN, DDI2, APTT, FERR3 #### [facility] [address] [place] [address] ALP [Catalytic activity/Vol] 85 U/L Normal 38-126 [facility] Comment on above: Performed By: #### H EMOG, CMP3M, CRP2, LDH3, FIBGN, DDI2, APTT, FERR3 #### [facility] [address] [place] [address] Anion gap [Moles/Vol] 9 Normal [facility] Comment on above: Performed By: #### H EMOG, CMP3M, CRP2, LDH3, FIBGN, DDI2, APTT, FERR3 #### [facility] [address] [place] [address] AST [Catalytic activity/Vol] 104 U/L High 15-46 [facility] Comment on above: Performed By: #### H EMOG, CMP3M, CRP2, LDH3, FIBGN, DDI2, APTT, FERR3 #### [facility] [address] [place] [address] Bilirubin [Mass/Vol] 0.7 mg/dL Normal 0.2-1.3 [facility] Comment on above: Performed By: #### H EMOG, CMP3M, CRP2, LDH3, FIBGN, DDI2, APTT, FERR3 #### [facility] [address] [place] [address] CO2 [Moles/Vol] 18 mmol/L Low 22-30 [facility] Comment on above: Performed By: #### H EMOG, CMP3M, CRP2, LDH3, FIBGN, DDI2, APTT, FERR3 #### [facility] [address] [place] [address] Creatinine [Mass/Vol] 1.89 mg/dL High 0.52-1.25 [facility] Comment on above: Performed By: #### H EMOG, CMP3M, CRP2, LDH3, FIBGN, DDI2, APTT, FERR3 #### [facility] [address] [place] [address] GFR/1.73 sq M predicted among blacks MDRD (S/P/Bld) [Vol rate/Area] 44.5 mL/min/{1.73_m2} Abnormal >60 [facility] Comment on above: Performed By: #### H EMOG, CMP3M, CRP2, LDH3, FIBGN, DDI2, APTT, FERR3 #### [facility] [address] [place] [address] GFR/1.73 sq M predicted among non-blacks MDRD (S/P/Bld) [Vol rate/Area] 38.4 mL/min/{1.73_m2} Abnormal >60 [facility] Comment on above: Result Comment: KDIG O [...] CRP2, LDH3, FIBGN, DDI2, APTT, FERR3 #### [facility] [address] [place] [address] Protein [Mass/Vol] 6.1 g/dL Low 6.3-8.2 [facility] Comment on above: Performed By: #### H EMOG, CMP3M, CRP2, LDH3, FIBGN, DDI2, APTT, FERR3 #### [facility] [address] [place] [address] Urea nitrogen [Mass/Vol] 35 mg/dL High 7-20 [facility] Comment on above: Performed By: #### H EMOG, CMP3M, CRP2, LDH3, FIBGN, DDI2, APTT, FERR3 #### [facility] [address] [place] [address] Potassium [Moles/Vol] 4.3 mmol/L Normal 3.5-5.1 [facility] Comment on above: Performed By: #### H EMOG, CMP3M, CRP2, LDH3, FIBGN, DDI2, APTT, FERR3 #### [facility] [address] [place] [address] Albumin [Mass/Vol] 3.3 g/dL Low 3.5-5.0 [facility] Comment on above: Performed By: #### H EMOG, CMP3M, CRP2, LDH3, FIBGN, DDI2, APTT, FERR3 #### [facility] [address] [place] [address] Chloride [Moles/Vol] 110 mmol/L High 98-107 [facility] Comment on above: Performed By: #### H EMOG, CMP3M, CRP2, LDH3, FIBGN, DDI2, APTT, FERR3 #### [facility] [address] [place] [address] Sodium [Moles/Vol] 137 mmol/L Normal 135-145 [facility] Comment on above: Performed By: #### H EMOG, CMP3M, CRP2, LDH3, FIBGN, DDI2, APTT, FERR3 #### [facility] [address] [place] [address] Comprehensive Metabolic Pane l w/ Reflex to MGon 11-02-2020 Albumin [Mass/Vol] 3.3 g/dL Low 3.5 - 5 g/dL [facility] ALP [Catalytic activity/Vol] 85 U/L 38 - 126 U/L [place] ALT [Catalytic activity/Vol] 198 U/L High 0 - 49 U/L [place] Comment on above: The ALT test is perf ormed by an updated assay method. Please note that the reference intervals have been changed and are now sex specific. Anion gap [Moles/Vol] 9 mmol/L [place], [place] AST [Catalytic activity/Vol] 104 U/L High 15 - 46 U/L [place] Bilirubin Ql (U) 0.7 mg/dL 0.2 - 1.3 mg/dL [place] Calcium [Mass/Vol] 8.8 mg/dL 8.4 - 10. 4 mg/dL [place] Chloride [Moles/Vol] 110 mmol/L High 98 - 10 7 mmol/L [place] CO2 [Moles/Vol] 18 mmol/L Low 22 - 30 mmol/L [place] Creatinine [Mass/Vol] 1.89 mg/dL High 0.52 - 1.25 mg/dL [place] EGFR IF NonAfrican [place]ian 38.4 mL/min Abnormal >60 [place] Comment on above: KDIGO guidelines pro [...] (S/P/Bld) [Vol rate/Area] 44.5 mL/min/{1.73_m2} Abnormal >60 [place] Glucose [Mass/Vol] 135 mg/dL High 70 - 100 mg/dL [place] Potassium [Moles/Vol] 4.3 mmol/L 3.5 - 5.1 mmol/L [place] Protein [Mass/Vol] 6.1 g/dL Low 6.3 - 8.2 g/dL [place] Sodium [Moles/Vol] 137 mmol/L 135 - 145 mmol/L [place] Urea nitrogen [Mass/Vol] 35 mg/dL High 7 - 20 mg/dL [place] D-Dimer, Innovanceon 020 D-Dimer, Innovance 0.83 mg/L High 0.00-0.50 [facility] Comment on above: Result Comment: Inno quach D-Dimer values of <0.50 mg/L FEU can be used in combination with a pre-test probability model (e.g. Well's) to exclude pulmonary embolism (PE) disease, as well as an aid in the diagnosis of deep vein thrombosis (DVT). Performed By: #### H EMOG, CMP3M, CRP2, LDH3, FIBGN, DDI2, APTT, FERR3 #### [facility] [address] [place] [address] D-Dimer, Quantitativeon 10-15 D-Dimer, Quant 0.83 mg/L High 0 - 0.5 mg/L [place] Comment on above: [employer] D-Dimer va lues of <0.50 mg/L FEU can be used in combination with a pre-test probability model (e.g. Well's) to exclude pulmonary embolism (PE) disease, as well as an aid in the diagnosis of deep vein thrombosis (DVT). Interpretation and review of laboratory results Abnormal [place] Ferritinon 11-02-2020 Ferritin [Mass/Vol] 938 ng/mL High 18-464 [facility] Comment on above: Performed By: #### H EMOG, CMP3M, CRP2, LDH3, FIBGN, DDI2, APTT, FERR3 #### [employer] [facility] [address] [place] [address] Ferritin [Mass/Vol] 938 ng/mL High 18 - 464 ng/mL [place] Interpretation and review of laboratory results Abnormal [place] Test Performed by [facility], [address] [place] [address] [place] Fibrinogenon 11-02-2020 Fibrinogen 373 mg/dL Normal 200-400 [facility] Comment on above: Performed By: #### H EMOG, CMP3M, CRP2, LDH3, FIBGN, DDI2, APTT, FERR3 #### [facility] [address] [place] [address] Fibrinogen 373 mg/dL 200 - 400 mg/dL [place] Hemogramon 11-02-2020 Erythrocyte distribution width (RBC) [Ratio] 14.2 % Normal 11.5-14.5 [facility] Comment on above: Performed By: #### H EMOG, CMP3M, CRP2, LDH3, FIBGN, DDI2, APTT, FERR3 #### [facility] [address] [place] [address] Hematocrit (Bld) [Volume fraction] 39.5 % Low 40.0-52.0 [facility] Comment on above: Performed By: #### H EMOG, CMP3M, CRP2, LDH3, FIBGN, DDI2, APTT, FERR3 #### [facility] [address] [place] [address] Hemoglobin (Bld) [Mass/Vol] 13.2 g/dL Normal 13.0-18.0 [facility] Comment on above: Performed By: #### H EMOG, CMP3M, CRP2, LDH3, FIBGN, DDI2, APTT, FERR3 #### [facility] [address] [place] [address] MCH (RBC) [Entitic mass] 29.4 pg Normal 26.0-34.0 [facility] Comment on above: Performed By: #### H EMOG, CMP3M, CRP2, LDH3, FIBGN, DDI2, APTT, FERR3 #### [facility] [address] [place] [address] MCHC (RBC) [Mass/Vol] 33.5 % Normal 32.0-36.0 [facility] Comment on above: Performed By: #### H EMOG, CMP3M, CRP2, LDH3, FIBGN, DDI2, APTT, FERR3 #### [facility] [address] [place] [address] MCV (RBC) [Entitic vol] 87.8 fL Normal 80.0-98.0 [facility] Comment on above: Performed By: #### H EMOG, CMP3M, CRP2, LDH3, FIBGN, DDI2, APTT, FERR3 #### [facility] [address] [place] [address] Platelet mean volume (Bld) [Entitic vol] 7.6 fL Normal 7.4-10.4 [facility] Comment on above: Performed By: #### H EMOG, CMP3M, CRP2, LDH3, FIBGN, DDI2, APTT, FERR3 #### [facility] [address] [place] [address] Platelets (Bld) [#/Vol] 340 10*3/uL Normal 140-440 [facility] Comment on above: Performed By: #### H EMOG, CMP3M, CRP2, LDH3, FIBGN, DDI2, APTT, FERR3 #### [facility] [address] [place] [address] RBC (Bld) [#/Vol] 4.49 10*6/uL Normal 4.40-5.90 [facility] Comment on above: Performed By: #### H EMOG, CMP3M, CRP2, LDH3, FIBGN, DDI2, APTT, FERR3 #### [facility] [address] [place] [address] WBC (Bld) [#/Vol] 13.0 10*3/uL High 3.6-10.7 [facility] Comment on above: Performed By: #### H EMOG, CMP3M, CRP2, LDH3, FIBGN, DDI2, APTT, FERR3 #### [facility] [address] [place] [address] LDHon 12-20-2020 LDH 589 U/L High 120-246 [facility] Comment on above: Performed By: #### H EMOG, CMP3M, CRP2, LDH3, FIBGN, DDI2, APTT, FERR3 #### [facility] [address] [place] [address] Lactate Dehydrogenaseon 10-15 0-2019 LD 589 U/L High 120 - 246 U/L [place] Otheron 11-02-2020 Test Performed by [facility], [address] [place], [place] [id number] [place] [address] Interpretation and review of laboratory results Abnormal [place] Test Performed by [facility], [address] [place] [address] [place] C-Reactive Proteinon 020 CRP [Mass/Vol] 14.1 mg/L High 0.0-6.0 [facility] Comment on above: Result Comment: . Performed By: #### H EMOG, CMP3M, CRP2, LDH3, FIBGN, DDI2, APTT, FERR3 #### [facility] [address] [place] [address] CRP [Mass/Vol] 14.1 mg/L High 0 - 6 mg/L [place] Comment on above: . Interpretation and review of laboratory results Abnormal [place] Test Performed by [facility], [address] [place] [address] [place] Comp Panel with Mg Reflexon 11-01-2020 ALT [Catalytic activity/Vol] 173 U/L High 0-49 [facility] Comment on above: Result Comment: The ALT test is performed by an updated assay method. Please note that the reference intervals have been changed and are now sex specific. Performed By: #### H EMOG, CMP3M, CRP2, LDH3, FIBGN, DDI2, APTT, FERR3 #### [facility] [address] [place] [address] Calcium [Mass/Vol] 8.7 mg/dL Normal 8.4-10.4 [facility] Comment on above: Performed By: #### H EMOG, CMP3M, CRP2, LDH3, FIBGN, DDI2, APTT, FERR3 #### [facility] [address] [place] [address] ALP [Catalytic activity/Vol] 77 U/L Normal 38-126 [facility] Comment on above: Performed By: #### H EMOG, CMP3M, CRP2, LDH3, FIBGN, DDI2, APTT, FERR3 #### [facility] [address] [place] [address] Anion gap [Moles/Vol] 7 Normal [facility] Comment on above: Performed By: #### H EMOG, CMP3M, CRP2, LDH3, FIBGN, DDI2, APTT, FERR3 #### [facility] [address] [place] [address] AST [Catalytic activity/Vol] 135 U/L High 15-46 [facility] Comment on above: Performed By: #### H EMOG, CMP3M, CRP2, LDH3, FIBGN, DDI2, APTT, FERR3 #### [facility] [address] [place] [address] Bilirubin [Mass/Vol] 0.5 mg/dL Normal 0.2-1.3 [facility] Comment on above: Performed By: #### H EMOG, CMP3M, CRP2, LDH3, FIBGN, DDI2, APTT, FERR3 #### [facility] [address] [place] [address] CO2 [Moles/Vol] 18 mmol/L Low 22-30 [facility] Comment on above: Performed By: #### H EMOG, CMP3M, CRP2, LDH3, FIBGN, DDI2, APTT, FERR3 #### [facility] [address] [place] [address] Creatinine [Mass/Vol] 1.77 mg/dL High 0.52-1.25 [facility] Comment on above: Performed By: #### H EMOG, CMP3M, CRP2, LDH3, FIBGN, DDI2, APTT, FERR3 #### [facility] [address] [place] [address] GFR/1.73 sq M predicted among blacks MDRD (S/P/Bld) [Vol rate/Area] 48.2 mL/min/{1.73_m2} Abnormal >60 [facility] Comment on above: Performed By: #### H EMOG, CMP3M, CRP2, LDH3, FIBGN, DDI2, APTT, FERR3 #### [facility] [address] [place] [address] GFR/1.73 sq M predicted among non-blacks MDRD (S/P/Bld) [Vol rate/Area] 41.6 mL/min/{1.73_m2} Abnormal >60 [facility] Comment on above: Result Comment: KDIG O [...] CRP2, LDH3, FIBGN, DDI2, APTT, FERR3 #### [facility] [address] [facility] [place] [address] Glucose [Mass/Vol] 134 mg/dL High 70-100 [facility] Comment on above: Performed By: #### H EMOG, CMP3M, CRP2, LDH3, FIBGN, DDI2, APTT, FERR3 #### [facility] [address] [place] [address] Protein [Mass/Vol] 5.6 g/dL Low 6.3-8.2 [facility] Comment on above: Performed By: #### H EMOG, CMP3M, CRP2, LDH3, FIBGN, DDI2, APTT, FERR3 #### [facility] [address] [place] [address] Urea nitrogen [Mass/Vol] 32 mg/dL High 7-20 [facility] Comment on above: Performed By: #### H EMOG, CMP3M, CRP2, LDH3, FIBGN, DDI2, APTT, FERR3 #### [facility] [address] [place] [address] Potassium [Moles/Vol] 4.2 mmol/L Normal 3.5-5.1 [facility] Comment on above: Performed By: #### H EMOG, CMP3M, CRP2, LDH3, FIBGN, DDI2, APTT, FERR3 #### [facility] [address] [place] [address] Sodium [Moles/Vol] 137 mmol/L Normal 135-145 [facility] Comment on above: Performed By: #### H EMOG, CMP3M, CRP2, LDH3, FIBGN, DDI2, APTT, FERR3 #### [facility] [address] [place] [address] Albumin [Mass/Vol] 3.1 g/dL Low 3.5-5.0 [facility] Comment on above: Performed By: #### H EMOG, CMP3M, CRP2, LDH3, FIBGN, DDI2, APTT, FERR3 #### [facility] [address] [place] [address] Chloride [Moles/Vol] 113 mmol/L High 98-107 [facility] Comment on above: Performed By: #### H EMOG, CMP3M, CRP2, LDH3, FIBGN, DDI2, APTT, FERR3 #### [facility] [address] [place] [address] Comprehensive Metabolic Pane l w/ Reflex to MGon 11-01-2020 Albumin [Mass/Vol] 3.1 g/dL Low 3.5 - 5 g/dL [facility] ALP [Catalytic activity/Vol] 77 U/L 38 - 126 U/L [place] ALT [Catalytic activity/Vol] 173 U/L High 0 - 49 U/L [place] Comment on above: The ALT test is perf ormed by an updated assay method. Please note that the reference intervals have been changed and are now sex specific. Anion gap [Moles/Vol] 7 mmol/L [place] AST [Catalytic activity/Vol] 135 U/L High 15 - 46 U/L [place] Bilirubin Ql (U) 0.5 mg/dL 0.2 - 1.3 mg/dL [place] Calcium [Mass/Vol] 8.7 mg/dL 8.4 - 10. 4 mg/dL [place] Chloride [Moles/Vol] 113 mmol/L High 98 - 10 7 mmol/L [place] CO2 [Moles/Vol] 18 mmol/L Low 22 - 30 mmol/L [place] Creatinine [Mass/Vol] 1.77 mg/dL High 0.52 - 1.25 mg/dL [place] EGFR IF NonAfrican [place] 41.6 mL/min Abnormal >60 [place] Comment on above: KDIGO guidelines pro [...] (S/P/Bld) [Vol rate/Area] 48.2 mL/min/{1.73_m2} Abnormal >60 [place] Glucose [Mass/Vol] 134 mg/dL High 70 - 100 mg/dL [place] Potassium [Moles/Vol] 4.2 mmol/L 3.5 - 5.1 mmol/L [place] Protein [Mass/Vol] 5.6 g/dL Low 6.3 - 8.2 g/dL [place] Sodium [Moles/Vol] 137 mmol/L 135 - 145 mmol/L [place] Urea nitrogen [Mass/Vol] 32 mg/dL High 7 - 20 mg/dL [place] D-Dimer, Innovanceon 020 D-Dimer, Innovance 0.87 mg/L High 0.00-0.50 [facility] Comment on above: Result Comment: Inno quach D-Dimer values of <0.50 mg/L FEU can be used in combination with a pre-test probability model (e.g. Well's) to exclude pulmonary embolism (PE) disease, as well as an aid in the diagnosis of deep vein thrombosis (DVT). Performed By: #### H EMOG, CMP3M, CRP2, LDH3, FIBGN, DDI2, APTT, FERR3 #### [facility] [address] [place] [address] D-Dimer, Quantitativeon 10-14 D-Dimer, Quant 0.87 mg/L High 0 - 0.5 mg/L [place] Comment on above: [employer] D-Dimer va lues of <0.50 mg/L FEU can be used in combination with a pre-test probability model (e.g. Well's) to exclude pulmonary embolism (PE) disease, as well as an aid in the diagnosis of deep vein thrombosis (DVT). EKG 12 Leadon 11-01-2020 Michel, [facility] Incoming Cardiology Results From [facility] - 11/01/2020 11:02 PM EST [facility] Test Date: 2020-10-31 Pat Name: Reggie León Department: Room: 468 Gender: M Registration Scheduling Specialist: NYLA : [id number] Requested By: FARRUKH DIAZ Order Number: [id number] Kim MD: Usama Cedillo Measurements Intervals [place] Rate: 83 P: 21 KS: 192 QRS: -16 QRSD: 104 T: 28 QT: 404 QTc: 475 Interpretive Statements SINUS RHYTHM MULTIPLE VENTRICULAR PREMATURE COMPLEXES Electronically Signed On 11-01-2020 23:01:06 EST by Usama Nguyen [facility] Test Date: 2020-10-31 Pat Name: Reggie León Department: Room: 468 Gender: M Registration Scheduling Specialist: NYLA : [id number] Requested By: FARRUKH DIAZ Order Number: [id number] Reading MD: Usama Cedillo Measurements Intervals [place] Rate: 83 P: 21 KS: 192 QRS: -16 QRSD: 104 T: 28 QT: 404 QTc: 475 Interpretive Statements SINUS RHYTHM MULTIPLE VENTRICULAR PREMATURE COMPLEXES Electronically Signed On 11-01-2020 23:01:06 EST by Usama Nguyen [place] Ferritinon 11-01-2020 Ferritin [Mass/Vol] 1020 ng/mL High 18-464 [facility] Comment on above: Performed By: #### H EMOG, CMP3M, CRP2, LDH3, FIBGN, DDI2, APTT, FERR3 #### [facility] [address] [place] [address] Ferritin [Mass/Vol] 1020 ng/mL High 18 - 464 ng/mL [place] Interpretation and review of laboratory results Abnormal [place] Test Performed by [facility], [address], [place], [place] [address] [place] Fibrinogenon 11-01-2020 Fibrinogen 420 mg/dL High 200-400 [facility] Comment on above: Performed By: #### H EMOG, CMP3M, CRP2, LDH3, FIBGN, DDI2, APTT, FERR3 #### [facility] [address] [place] [address] Fibrinogen 420 mg/dL High 200 - 400 mg/dL [place] LDHon 11-01-2020 LDH 665 U/L High 120-246 [facility] Comment on above: Performed By: #### H EMOG, CMP3M, CRP2, LDH3, FIBGN, DDI2, APTT, FERR3 #### [facility] [address] [place] [address] Lactate Dehydrogenaseon - LD 665 U/L High 120 - 246 U/L [place] Otheron 11-01-2020 Interpretation and review of laboratory results Abnormal [place] Test Performed by [facility], [address] [place] [address] [place] Interpretation and review of laboratory results Abnormal [place] Test Performed by [facility], [address] [place] [address] [place] C-Reactive Proteinon 020 CRP [Mass/Vol] 19.2 mg/L High 0.0-6.0 [facility] Comment on above: Result Comment: . Performed By: #### H EMOG, CMP3M, CRP2, LDH3, FIBGN, DDI2, APTT, FERR3 #### [facility] [address] [place] [address] CRP [Mass/Vol] 19.2 mg/L High 0 - 6 mg/L [place] Comment on above: . CBCon 10-31-2020 Erythrocyte distribution width (RBC) [Ratio] 14.0 % 11.5 - 14.5 % [place] Hematocrit (Bld) [Volume fraction] 35.7 % Low 40 - 52 % [place] Hemoglobin (Bld) [Mass/Vol] 12.0 g/dL Low 13 - 18 g/dL [place] Interpretation and review of laboratory results Abnormal [place] MCH (RBC) [Entitic mass] 29.0 pg 26 - 34 pg [place] MCHC (RBC) [Mass/Vol] 33.7 % 32 - 36 % [place] MCV (RBC) [Entitic vol] 86.3 fL 80 - 98 fL [place] Platelet mean volume (Bld) [Entitic vol] 7.5 fL 7.4 - 10.4 fL [place] Platelets (Bld) [#/Vol] 294 10*3/uL 140 - 440 10*3/uL [place] RBC (Bld) [#/Vol] 4.14 10*6/uL Low 4.4 - 5.9 10*6/uL [place] WBC (Bld) [#/Vol] 9.5 10*3/uL 3.6 - 10.7 10*3/uL [place] Test Performed by [facility], [address] [place] [address] [place] Comp Panel with Mg Reflexon 10-31-2020 ALT [Catalytic activity/Vol] 79 U/L High 0-49 [facility] Comment on above: Result Comment: The ALT test is performed by an updated assay method. Please note that the reference intervals have been changed and are now sex specific. Performed By: #### H EMOG, CMP3M, CRP2, LDH3, FIBGN, DDI2, APTT, FERR3 #### [facility] [address] [place] [address] Calcium [Mass/Vol] 8.7 mg/dL Normal 8.4-10.4 [facility] Comment on above: Performed By: #### H EMOG, CMP3M, CRP2, LDH3, FIBGN, DDI2, APTT, FERR3 #### [facility] [address] [place] [address] Glucose [Mass/Vol] 139 mg/dL High 70-100 [facility] Comment on above: Performed By: #### H EMOG, CMP3M, CRP2, LDH3, FIBGN, DDI2, APTT, FERR3 #### [facility] [address] [place] [address] Urea nitrogen [Mass/Vol] 30 mg/dL High 7-20 [facility] Comment on above: Performed By: #### H EMOG, CMP3M, CRP2, LDH3, FIBGN, DDI2, APTT, FERR3 #### [facility] [address] [place] [address] ALP [Catalytic activity/Vol] 69 U/L Normal 38-126 [facility] Comment on above: Performed By: #### H EMOG, CMP3M, CRP2, LDH3, FIBGN, DDI2, APTT, FERR3 #### [facility] [address] [place] [address] Anion gap [Moles/Vol] 7 Normal [facility] Comment on above: Performed By: #### H EMOG, CMP3M, CRP2, LDH3, FIBGN, DDI2, APTT, FERR3 #### [facility] [address] [place] [address] AST [Catalytic activity/Vol] 67 U/L High 15-46 [facility] Comment on above: Performed By: #### H EMOG, CMP3M, CRP2, LDH3, FIBGN, DDI2, APTT, FERR3 #### [facility] [address] [place] [address] Bilirubin [Mass/Vol] 0.4 mg/dL Normal 0.2-1.3 [facility] Comment on above: Performed By: #### H EMOG, CMP3M, CRP2, LDH3, FIBGN, DDI2, APTT, FERR3 #### [facility] [address] [place] [address] CO2 [Moles/Vol] 17 mmol/L Low 22-30 [facility] Comment on above: Performed By: #### H EMOG, CMP3M, CRP2, LDH3, FIBGN, DDI2, APTT, FERR3 #### [facility] [address] [place] [address] Creatinine [Mass/Vol] 1.84 mg/dL High 0.52-1.25 [facility] Comment on above: Performed By: #### H EMOG, CMP3M, CRP2, LDH3, FIBGN, DDI2, APTT, FERR3 #### [facility] [address] [place] [address] GFR/1.73 sq M predicted among blacks MDRD (S/P/Bld) [Vol rate/Area] 46.0 mL/min/{1.73_m2} Abnormal >60 [facility] Comment on above: Performed By: #### H EMOG, CMP3M, CRP2, LDH3, FIBGN, DDI2, APTT, FERR3 #### [facility] [address] [place] [address] GFR/1.73 sq M predicted among non-blacks MDRD (S/P/Bld) [Vol rate/Area] 39.7 mL/min/{1.73_m2} Abnormal >60 [facility] Comment on above: Result Comment: KDIG O [...] CRP2, LDH3, FIBGN, DDI2, APTT, FERR3 #### [facility] [address] [place] [address] Protein [Mass/Vol] 5.3 g/dL Low 6.3-8.2 [facility] Comment on above: Performed By: #### H EMOG, CMP3M, CRP2, LDH3, FIBGN, DDI2, APTT, FERR3 #### [facility] [address] [place] [address] Albumin [Mass/Vol] 2.8 g/dL Low 3.5-5.0 [facility] Comment on above: Performed By: #### H EMOG, CMP3M, CRP2, LDH3, FIBGN, DDI2, APTT, FERR3 #### [facility] [address] [place] [address] Chloride [Moles/Vol] 112 mmol/L High 98-107 [facility] Comment on above: Performed By: #### H EMOG, CMP3M, CRP2, LDH3, FIBGN, DDI2, APTT, FERR3 #### [facility] [address] [place] [address] Sodium [Moles/Vol] 136 mmol/L Normal 135-145 [facility] Comment on above: Performed By: #### H EMOG, CMP3M, CRP2, LDH3, FIBGN, DDI2, APTT, FERR3 #### [facility] [address] [place] [address] Potassium [Moles/Vol] 3.8 mmol/L Normal 3.5-5.1 [place] Comment on above: Performed By: #### H EMOG, CMP3M, CRP2, LDH3, FIBGN, DDI2, APTT, FERR3 #### [facility] [address] [place] [address] Comprehensive Metabolic Pane l w/ Reflex to MGon 10-31-2020 Albumin [Mass/Vol] 2.8 g/dL Low 3.5 - 5 g/dL [place] ALP [Catalytic activity/Vol] 69 U/L 38 - 126 U/L [place] ALT [Catalytic activity/Vol] 79 U/L High 0 - 49 U/L [place] Comment on above: The ALT test is perf ormed by an updated assay method. Please note that the reference intervals have been changed and are now sex specific. Anion gap [Moles/Vol] 7 mmol/L [place] AST [Catalytic activity/Vol] 67 U/L High 15 - 46 U/L [place] Bilirubin Ql (U) 0.4 mg/dL 0.2 - 1.3 mg/dL [place] Calcium [Mass/Vol] 8.7 mg/dL 8.4 - 10. 4 mg/dL [place] Chloride [Moles/Vol] 112 mmol/L High 98 - 10 7 mmol/L [place] CO2 [Moles/Vol] 17 mmol/L Low 22 - 30 mmol/L [place] Creatinine [Mass/Vol] 1.84 mg/dL High 0.52 - 1.25 mg/dL [place] EGFR IF NonAfrican [place]ian 39.7 mL/min Abnormal >60 [place] Comment on above: KDIGO guidelines pro [...] (S/P/Bld) [Vol rate/Area] 46.0 mL/min/{1.73_m2} Abnormal >60 [place] Glucose [Mass/Vol] 139 mg/dL High 70 - 100 mg/dL [place] Protein [Mass/Vol] 5.3 g/dL Low 6.3 - 8.2 g/dL [place] Sodium [Moles/Vol] 136 mmol/L 135 - 145 mmol/L [place] Urea nitrogen [Mass/Vol] 30 mg/dL High 7 - 20 mg/dL [place] D-Dimer, Innovanceon 020 D-Dimer, Innovance 0.96 mg/L High 0.00-0.50 [facility] Comment on above: Result Comment: Inno quach D-Dimer values of <0.50 mg/L FEU can be used in combination with a pre-test probability model (e.g. Well's) to exclude pulmonary embolism (PE) disease, as well as an aid in the diagnosis of deep vein thrombosis (DVT). Performed By: #### H EMOG, CMP3M, CRP2, LDH3, FIBGN, DDI2, APTT, FERR3 #### [facility] [address] [place] [address] D-Dimer, Quantitativeon 12- D-Dimer, Quant 0.96 mg/L High 0 - 0.5 mg/L [place] Comment on above: Innovance D-Dimer va lues of <0.50 mg/L FEU can be used in combination with a pre-test probability model (e.g. Well's) to exclude pulmonary embolism (PE) disease, as well as an aid in the diagnosis of deep vein thrombosis (DVT). Ferritinon 10-31-2020 Ferritin [Mass/Vol] 810 ng/mL High 18-464 [facility] Comment on above: Performed By: #### H EMOG, CMP3M, CRP2, LDH3, FIBGN, DDI2, APTT, FERR3 #### [facility] [address] [place] [address] Ferritin [Mass/Vol] 810 ng/mL High 18 - 464 ng/mL [place] Interpretation and review of laboratory results Abnormal [place] Test Performed by [facility], [address] [place], [place] [address] [place] Fibrinogenon 10-31-2020 Fibrinogen 455 mg/dL High 200-400 [facility] Comment on above: Performed By: #### H EMOG, CMP3M, CRP2, LDH3, FIBGN, DDI2, APTT, FERR3 #### [facility] [address] [place] [address] Fibrinogen 455 mg/dL High 200 - 400 mg/dL [place] Hemogramon 10-31-2020 Erythrocyte distribution width (RBC) [Ratio] 14.0 % Normal 11.5-14.5 [facility] Comment on above: Performed By: #### H EMOG, CMP3M, CRP2, LDH3, FIBGN, DDI2, APTT, FERR3 #### [facility] [address] [place] [address] Hematocrit (Bld) [Volume fraction] 35.7 % Low 40.0-52.0 [facility] Comment on above: Performed By: #### H EMOG, CMP3M, CRP2, LDH3, FIBGN, DDI2, APTT, FERR3 #### [facility] [address] [place] [address] Hemoglobin (Bld) [Mass/Vol] 12.0 g/dL Low 13.0-18.0 [facility] Comment on above: Performed By: #### H EMOG, CMP3M, CRP2, LDH3, FIBGN, DDI2, APTT, FERR3 #### [facility] [address] [place] [address] MCH (RBC) [Entitic mass] 29.0 pg Normal 26.0-34.0 [facility] Comment on above: Performed By: #### H EMOG, CMP3M, CRP2, LDH3, FIBGN, DDI2, APTT, FERR3 #### [facility] [address] [place] [address] MCHC (RBC) [Mass/Vol] 33.7 % Normal 32.0-36.0 [facility] Comment on above: Performed By: #### H EMOG, CMP3M, CRP2, LDH3, FIBGN, DDI2, APTT, FERR3 #### [facility] [address] [place] [address] MCV (RBC) [Entitic vol] 86.3 fL Normal 80.0-98.0 [facility] Comment on above: Performed By: #### H EMOG, CMP3M, CRP2, LDH3, FIBGN, DDI2, APTT, FERR3 #### [facility] [address] [place] [address] Platelet mean volume (Bld) [Entitic vol] 7.5 fL Normal 7.4-10.4 [facility] Comment on above: Performed By: #### H EMOG, CMP3M, CRP2, LDH3, FIBGN, DDI2, APTT, FERR3 #### [facility] [address] [place] [address] Platelets (Bld) [#/Vol] 294 10*3/uL Normal 140-440 [facility] Comment on above: Performed By: #### H EMOG, CMP3M, CRP2, LDH3, FIBGN, DDI2, APTT, FERR3 #### [facility] [address] [place] [address] RBC (Bld) [#/Vol] 4.14 10*6/uL Low 4.40-5.90 [facility] Comment on above: Performed By: #### H EMOG, CMP3M, CRP2, LDH3, FIBGN, DDI2, APTT, FERR3 #### [facility] [address] [place] [address] WBC (Bld) [#/Vol] 9.5 10*3/uL Normal 3.6-10.7 [facility] Comment on above: Performed By: #### H EMOG, CMP3M, CRP2, LDH3, FIBGN, DDI2, APTT, FERR3 #### [facility] [address] [place] [address] LDHon 10-31-2020 LDH 572 U/L High 120-246 [facility] Comment on above: Performed By: #### H EMOG, CMP3M, CRP2, LDH3, FIBGN, DDI2, APTT, FERR3 #### [facility] [address] [place] [address] Lactate Dehydrogenaseon 10-14 LD 572 U/L High 120 - 246 U/L [place] Otheron 10-31-2020 Interpretation and review of laboratory results Abnormal [place] Test Performed by [place] [address] [place] [id number] [place] [address] Interpretation and review of laboratory results Abnormal [place] Test Performed by [facility], [facility] [address] [place], [place] [address] [place] [address] APTTon 10-30-2020 aPTT Coag (Bld) [Time] 47.0 s High 20.0-30.5 [facility] Comment on above: Result Comment: NOTE : The therapeutic time for Heparin anticoagulation, based on Xa activity inhibition, is an APTT of 46-80 seconds. Performed By: #### H EMOG, CMP3M, CRP2, LDH3, FIBGN, DDI2, APTT, FERR3 #### [facility] [address] [place] [address] aPTT Coag (Bld) [Time] 47 s High 20 - 30.5 s [place] Comment on above: NOTE: The therapeuti c time for Heparin anticoagulation, based on Xa activity inhibition, is an APTT of 46-80 seconds. C-Reactive Proteinon 020 CRP [Mass/Vol] 27.5 mg/L High 0.0-6.0 [facility] Comment on above: Result Comment: . Performed By: #### H EMOG, CMP3M, CRP2, LDH3, FIBGN, DDI2, APTT, FERR3 #### [facility] [address] [place] [address] CRP [Mass/Vol] 27.5 mg/L High 0 - 6 mg/L [place] Comment on above: . Comp Panel with Mg Reflexon 10-30-2020 ALT [Catalytic activity/Vol] 67 U/L High 0-49 [facility] Comment on above: Result Comment: The ALT test is performed by an updated assay method. Please note that the reference intervals have been changed and are now sex specific. Performed By: #### H EMOG, CMP3M, CRP2, LDH3, FIBGN, DDI2, APTT, FERR3 #### [facility] [address] [place] [address] Calcium [Mass/Vol] 8.6 mg/dL Normal 8.4-10.4 [facility] Comment on above: Performed By: #### H EMOG, CMP3M, CRP2, LDH3, FIBGN, DDI2, APTT, FERR3 #### [facility] [address] [place] [address] Glucose [Mass/Vol] 142 mg/dL High 70-100 [facility] Comment on above: Performed By: #### H EMOG, CMP3M, CRP2, LDH3, FIBGN, DDI2, APTT, FERR3 #### [facility] [address] [place] [address] Urea nitrogen [Mass/Vol] 30 mg/dL High 7-20 [facility] Comment on above: Performed By: #### H EMOG, CMP3M, CRP2, LDH3, FIBGN, DDI2, APTT, FERR3 #### [facility] [address] [place] [address] ALP [Catalytic activity/Vol] 75 U/L Normal 38-126 [facility] Comment on above: Performed By: #### H EMOG, CMP3M, CRP2, LDH3, FIBGN, DDI2, APTT, FERR3 #### [facility] [address] [place] [address] Anion gap [Moles/Vol] 8 Normal [facility] Comment on above: Performed By: #### H EMOG, CMP3M, CRP2, LDH3, FIBGN, DDI2, APTT, FERR3 #### [facility] [address] [place] [address] AST [Catalytic activity/Vol] 67 U/L High 15-46 [facility] Comment on above: Performed By: #### H EMOG, CMP3M, CRP2, LDH3, FIBGN, DDI2, APTT, FERR3 #### [facility] [address] [place] [address] Bilirubin [Mass/Vol] 0.3 mg/dL Normal 0.2-1.3 [facility] Comment on above: Performed By: #### H EMOG, CMP3M, CRP2, LDH3, FIBGN, DDI2, APTT, FERR3 #### [facility] [address] [place] [address] CO2 [Moles/Vol] 18 mmol/L Low 22-30 [facility] Comment on above: Performed By: #### H EMOG, CMP3M, CRP2, LDH3, FIBGN, DDI2, APTT, FERR3 #### [facility] [address] [place] [address] Creatinine [Mass/Vol] 2.01 mg/dL High 0.52-1.25 [facility] Comment on above: Performed By: #### H EMOG, CMP3M, CRP2, LDH3, FIBGN, DDI2, APTT, FERR3 #### [facility] [address] [place] [address] GFR/1.73 sq M predicted among blacks MDRD (S/P/Bld) [Vol rate/Area] 41.3 mL/min/{1.73_m2} Abnormal >60 [facility] Comment on above: Performed By: #### H EMOG, CMP3M, CRP2, LDH3, FIBGN, DDI2, APTT, FERR3 #### [facility] [address] [place] [address] GFR/1.73 sq M predicted among non-blacks MDRD (S/P/Bld) [Vol rate/Area] 35.6 mL/min/{1.73_m2} Abnormal >60 [facility] Comment on above: Result Comment: KDIG O [...] CRP2, LDH3, FIBGN, DDI2, APTT, FERR3 #### [facility] [address] [facility] [address] Protein [Mass/Vol] 5.7 g/dL Low 6.3-8.2 [facility] Comment on above: Performed By: #### H EMOG, CMP3M, CRP2, LDH3, FIBGN, DDI2, APTT, FERR3 #### [facility] [address] [place] [address] Potassium [Moles/Vol] 4.0 mmol/L Normal 3.5-5.1 [facility] Comment on above: Performed By: #### H EMOG, CMP3M, CRP2, LDH3, FIBGN, DDI2, APTT, FERR3 #### [facility] [address] [place] [address] Albumin [Mass/Vol] 2.9 g/dL Low 3.5-5.0 [facility] Comment on above: Performed By: #### H EMOG, CMP3M, CRP2, LDH3, FIBGN, DDI2, APTT, FERR3 #### [facility] [address] [place] [address] Chloride [Moles/Vol] 114 mmol/L High 98-107 [facility] Comment on above: Performed By: #### H EMOG, CMP3M, CRP2, LDH3, FIBGN, DDI2, APTT, FERR3 #### [facility] [address] [place] [address] Sodium [Moles/Vol] 140 mmol/L Normal 135-145 [facility] Comment on above: Performed By: #### H EMOG, CMP3M, CRP2, LDH3, FIBGN, DDI2, APTT, FERR3 #### [facility] [address] [place] [address] Comprehensive Metabolic Pane l w/ Reflex to MGon 10-30-2020 Albumin [Mass/Vol] 2.9 g/dL Low 3.5 - 5 g/dL [place] ALP [Catalytic activity/Vol] 75 U/L 38 - 126 U/L [place] ALT [Catalytic activity/Vol] 67 U/L High 0 - 49 U/L [place] Comment on above: The ALT test is perf ormed by an updated assay method. Please note that the reference intervals have been changed and are now sex specific. Anion gap [Moles/Vol] 8 mmol/L [place] AST [Catalytic activity/Vol] 67 U/L High 15 - 46 U/L [place] Bilirubin Ql (U) 0.3 mg/dL 0.2 - 1.3 mg/dL [place] Calcium [Mass/Vol] 8.6 mg/dL 8.4 - 10. 4 mg/dL [place] Chloride [Moles/Vol] 114 mmol/L High 98 - 10 7 mmol/L [place] CO2 [Moles/Vol] 18 mmol/L Low 22 - 30 mmol/L [place] Creatinine [Mass/Vol] 2.01 mg/dL High 0.52 - 1.25 mg/dL [place] EGFR IF NonAfrican [place]ian 35.6 mL/min Abnormal >60 [place] Comment on above: KDIGO guidelines pro [...] (S/P/Bld) [Vol rate/Area] 41.3 mL/min/{1.73_m2} Abnormal >60 [place] Glucose [Mass/Vol] 142 mg/dL High 70 - 100 mg/dL [place] Potassium [Moles/Vol] 4.0 mmol/L 3.5 - 5.1 mmol/L [place] Protein [Mass/Vol] 5.7 g/dL Low 6.3 - 8.2 g/dL [place] Sodium [Moles/Vol] 140 mmol/L 135 - 145 mmol/L [place] Urea nitrogen [Mass/Vol] 30 mg/dL High 7 - 20 mg/dL [place] D-Dimer, Innovanceon 12-17-2 020 D-Dimer, Innovance 0.89 mg/L High 0.00-0.50 [facility] Comment on above: Result Comment: Inno quach D-Dimer values of <0.50 mg/L FEU can be used in combination with a pre-test probability model (e.g. Well's) to exclude pulmonary embolism (PE) disease, as well as an aid in the diagnosis of deep vein thrombosis (DVT). Performed By: #### H EMOG, CMP3M, CRP2, LDH3, FIBGN, DDI2, APTT, FERR3 #### [facility] [address] [place] [address] D-Dimer, Quantitativeon 10-14 D-Dimer, Quant 0.89 mg/L High 0 - 0.5 mg/L [place] Comment on above: Innovance D-Dimer va lues of <0.50 mg/L FEU can be used in combination with a pre-test probability model (e.g. Well's) to exclude pulmonary embolism (PE) disease, as well as an aid in the diagnosis of deep vein thrombosis (DVT). Ferritinon 10-30-2020 Ferritin [Mass/Vol] 885 ng/mL High 18-464 [facility] Comment on above: Performed By: #### H EMOG, CMP3M, CRP2, LDH3, FIBGN, DDI2, APTT, FERR3 #### [facility] [address] [place] [address] Ferritin [Mass/Vol] 885 ng/mL High 18 - 464 ng/mL [place] Interpretation and review of laboratory results Abnormal [place] Test Performed by [facility], [address] [place] [address] [place] Fibrinogenon 10-30-2020 Fibrinogen 456 mg/dL High 200-400 [facility] Comment on above: Performed By: #### H EMOG, CMP3M, CRP2, LDH3, FIBGN, DDI2, APTT, FERR3 #### [facility] [address] [place] [address] Fibrinogen 456 mg/dL High 200 - 400 mg/dL [place] LDHon 10-30-2020 LDH 613 U/L High 120-246 [facility] Comment on above: Performed By: #### H EMOG, CMP3M, CRP2, LDH3, FIBGN, DDI2, APTT, FERR3 #### [facility] [address] [place] [address] Lactate Dehydrogenaseon 10-14 LD 613 U/L High 120 - 246 U/L [place] Otheron 10-30-2020 Interpretation and review of laboratory results Abnormal [place] Test Performed by [place] [address] [place] [address] [place] Interpretation and review of laboratory results Abnormal [place] Test Performed by [facility], [address] [place] [address] [place] APTTon 10-29-2020 aPTT Coag (Bld) [Time] 35.1 s High 20.0-30.5 [facility] Comment on above: Result Comment: NOTE : The therapeutic time for Heparin anticoagulation, based on Xa activity inhibition, is an APTT of 46-80 seconds. Performed By: #### H EMOG, CMP3M, CRP2, LDH3, FIBGN, DDI2, APTT, FERR3 #### [facility] [address] [place] [address] aPTT Coag (Bld) [Time] 35.1 s High 20 - 30.5 s [place] Comment on above: NOTE: The therapeuti c time for Heparin anticoagulation, based on Xa activity inhibition, is an APTT of 46-80 seconds. C-Reactive Proteinon 020 CRP [Mass/Vol] 34.9 mg/L High 0.0-6.0 [facility] Comment on above: Result Comment: . Performed By: #### H EMOG, CMP3M, CRP2, LDH3, FIBGN, DDI2, APTT, FERR3 #### [facility] [address] [place] [address] CRP [Mass/Vol] 34.9 mg/L High 0 - 6 mg/L [place] Comment on above: . CBCon 10-29-2020 Erythrocyte distribution width (RBC) [Ratio] 14.2 % 11.5 - 14.5 % [place] Hematocrit (Bld) [Volume fraction] 37.3 % Low 40 - 52 % [place] Hemoglobin (Bld) [Mass/Vol] 12.6 g/dL Low 13 - 18 g/dL [place] Interpretation and review of laboratory results Abnormal [place] MCH (RBC) [Entitic mass] 29.2 pg 26 - 34 pg [place] MCHC (RBC) [Mass/Vol] 33.7 % 32 - 36 % [place] MCV (RBC) [Entitic vol] 86.7 fL 80 - 98 fL [place] Platelet mean volume (Bld) [Entitic vol] 7.6 fL 7.4 - 10.4 fL [place] Platelets (Bld) [#/Vol] 255 10*3/uL 140 - 440 10*3/uL [place] RBC (Bld) [#/Vol] 4.30 10*6/uL Low 4.4 - 5.9 10*6/uL [place] WBC (Bld) [#/Vol] 7.8 10*3/uL 3.6 - 10.7 10*3/uL [place] Test Performed by [facility], [address], [place] [id number] [place] [address] CBC auto differentialon 12- Absolute Baso # 0.0 10*3/uL 0 - 0.2 10*3/uL [place] Absolute Neut # 3.5 10*3/uL 1.8 - 7 10*3/uL [place] Basophils/100 WBC (Bld) 0.3 % 0 - 2 % [place] Eosinophils (Bld) [#/Vol] 0.0 10*3/uL 0 - 0.5 10*3/uL [place] Eosinophils/100 WBC (Bld) 0.0 % Low 1 - 6 % [place] Erythrocyte distribution width (RBC) [Ratio] 13.8 % 11.5 - 14.5 % [place] Granulocytes/100 WBC (Bld) 79.4 % 40 - 80 % [place] Hematocrit (Bld) [Volume fraction] 36.7 % Low 40 - 52 % [place] Hemoglobin (Bld) [Mass/Vol] 12.2 g/dL Low 13 - 18 g/dL [place] Interpretation and review of laboratory results Abnormal [place] Lymphocytes (Bld) [#/Vol] 0.4 10*3/uL Low 1 - 4.3 10*3/uL [place] Lymphocytes/100 WBC (Bld) 8.8 % Low 20 - 40 % [place] MCH (RBC) [Entitic mass] 29.1 pg 26 - 34 pg [place] MCHC (RBC) [Mass/Vol] 33.1 % 32 - 36 % [place] MCV (RBC) [Entitic vol] 87.8 fL 80 - 98 fL [place] Monocytes (Bld) [#/Vol] 0.5 10*3/uL 0 - 0.8 10*3/uL [place] Monocytes/100 WBC (Bld) 11.5 % High 2 - 10 % [place] Platelet mean volume (Bld) [Entitic vol] 7.9 fL 7.4 - 10.4 fL [place] Platelets (Bld) [#/Vol] 231 10*3/uL 140 - 440 10*3/uL [place] RBC (Bld) [#/Vol] 4.19 10*6/uL Low 4.4 - 5.9 10*6/uL [place] WBC (Bld) [#/Vol] 4.4 10*3/uL 3.6 - 10.7 10*3/uL [place] Test Performed by [facility], [address] [place], [place], [place] [address] [place] COVID and Resp PCR Panelon 1 [...] management decisions. This assay was developed by [employer] and distributed under an Emergency Use Authorization (EUA) granted by the FDA for the qualitative detection of SARS-CoV-2 nucleic acid. Provider and patient fact sheets can be found at https://www.fda.gov/media/ 120889/download and https://www.fda.gov/media/ 458679/download. Respiratory Pathogens PCR Panel. _ Expected Result: Not Detected The [employer] Upper Respiratory Pathogens PCR Panel can detect [...] management decisions. This assay was developed by [employer] and distributed under an Emergency Use Authorization (EUA) granted by the FDA for the qualitative detection of SARS-CoV-2 nucleic acid. Provider and patient fact sheets can be found at https://www.fda.gov/media/ 475426/download and https://www.[employer].gov/media/ 326394/download. Normal [facility] Comment on above: Performed By: #### H EMOG, CMP3M, CRP2, LDH3, FIBGN, DDI2, APTT, FERR3 #### [facility] [address] [place] [address] CTA CHEST W WO CONTRASTon Patient Name: REGGIE WILSON [employer] ACCESSION EXAM DATE/TIME PROCEDURE ORDERING PROVIDER [id number] 10/29/2020 16:29 EST CTA Chest w/ + w/o MD EMILY, FARRUKH MCCORMICK Contrast CPT code 50128 Q9967 Reason For Exam (CTA Chest w/ + w/o Contrast) Hypoxia and elevated D-dimer, possible COVID+ and PE? Report Reasons for examination: Hypoxia, elevated d-dimer, Covid 19. CT scan of the chest were performed with bolus contrast and high resolution scans for CT pulmonary angiographic study, with images post-processed by myself on [employer] workstation, with 3D - volume rendered CT [...] WILLIAM Transcribed Date and Time: 10/29/2020 4:51 [facility], [facility], [facility] Incoming Radiology Results From [facility] - 10/29/2020 4:51 PM EST Patient Name: REGGIE LEÓN [employer] Tomography ACCESSION EXAM DATE/TIME PROCEDURE ORDERING PROVIDER [id number] 10/29/2020 16:29 EST CTA Chest w/ + w/o MD EMILY, IMOLA ANNY Contrast CPT code 91506 Q9967 Reason For Exam (CTA Chest w/ + w/o Contrast) Hypoxia and elevated D-dimer, possible COVID+ and PE? Report Reasons for examination: Hypoxia, elevated d-dimer, Covid 19. CT scan of the chest were performed with bolus contrast and high resolution scans for CT pulmonary angiographic study, with images post-processed by myself on [employer] workstation, with 3D - volume rendered CT [...] WILLIAM Transcribed Date and Time: 10/29/2020 4:51 [place] CTA Chest w/ + w/o Contrasto n 10-29-2020 CTA Chest w/ + w/o Contrast Patient Name: REGGIE LEÓN Computed Tomography ACCESSION EXAM DATE/TIME PROCEDURE ORDERING PROVIDER [id number] 10/29/2020 16:29 EST CTA Chest w/ + w/o MD EMILY, IMOLA ANNY Contrast CPT code 11366 Q9967 Reason For Exam (CTA Chest w/ + w/o Contrast) Hypoxia and elevated D-dimer, possible COVID+ and PE? Report Reasons for examination: Hypoxia, elevated d-dimer, Covid 19. CT scan of the chest were performed with bolus contrast and high resolution scans for CT pulmonary angiographic study, with images post-processed by myself on [employer] workstation, with 3D - volume rendered CT [...] Transcribed Date and Time: 10/29/2020 4:51 Normal [facility] Comp Panel with Mg Reflexon 10-29-2020 ALP [Catalytic activity/Vol] 71 U/L Normal 38-126 [facility] Comment on above: Performed By: #### H EMOG, CMP3M, CRP2, LDH3, FIBGN, DDI2, APTT, FERR3 #### [facility] [address] [place] [address] ALT [Catalytic activity/Vol] 67 U/L High 0-49 [facility] Comment on above: Result Comment: The ALT test is performed by an updated assay method. Please note that the reference intervals have been changed and are now sex specific. Performed By: #### H EMOG, CMP3M, CRP2, LDH3, FIBGN, DDI2, APTT, FERR3 #### [facility] [address] [facility] [place] [address] Anion gap [Moles/Vol] 7 Normal [facility] Comment on above: Performed By: #### H EMOG, CMP3M, CRP2, LDH3, FIBGN, DDI2, APTT, FERR3 #### [facility] [address] [place] [address] AST [Catalytic activity/Vol] 88 U/L High 15-46 [facility] Comment on above: Performed By: #### H EMOG, CMP3M, CRP2, LDH3, FIBGN, DDI2, APTT, FERR3 #### [facility] [address] [place] [address] Bilirubin [Mass/Vol] 0.6 mg/dL Normal 0.2-1.3 [facility] Comment on above: Performed By: #### H EMOG, CMP3M, CRP2, LDH3, FIBGN, DDI2, APTT, FERR3 #### [facility] [address] [place] [address] Calcium [Mass/Vol] 8.9 mg/dL Normal 8.4-10.4 [facility] Comment on above: Performed By: #### H EMOG, CMP3M, CRP2, LDH3, FIBGN, DDI2, APTT, FERR3 #### [facility] [address] [place] [address] CO2 [Moles/Vol] 18 mmol/L Low 22-30 [facility] Comment on above: Performed By: #### H EMOG, CMP3M, CRP2, LDH3, FIBGN, DDI2, APTT, FERR3 #### [facility] [address] [place] [address] Creatinine [Mass/Vol] 2.24 mg/dL High 0.52-1.25 [facility] Comment on above: Performed By: #### H EMOG, CMP3M, CRP2, LDH3, FIBGN, DDI2, APTT, FERR3 #### [facility] [address] [place] [address] GFR/1.73 sq M predicted among blacks MDRD (S/P/Bld) [Vol rate/Area] 36.2 mL/min/{1.73_m2} Abnormal >60 [facility] Comment on above: Performed By: #### H EMOG, CMP3M, CRP2, LDH3, FIBGN, DDI2, APTT, FERR3 #### [facility] [address] [place] [address] GFR/1.73 sq M predicted among non-blacks MDRD (S/P/Bld) [Vol rate/Area] 31.3 mL/min/{1.73_m2} Abnormal >60 [facility] Comment on above: Result Comment: KDIG O [...] CRP2, LDH3, FIBGN, DDI2, APTT, FERR3 #### [facility] [address] [place] [address] Glucose [Mass/Vol] 132 mg/dL High 70-100 [facility] Comment on above: Performed By: #### H EMOG, CMP3M, CRP2, LDH3, FIBGN, DDI2, APTT, FERR3 #### [facility] [address] [place] [address] Protein [Mass/Vol] 6.0 g/dL Low 6.3-8.2 [facility] Comment on above: Performed By: #### H EMOG, CMP3M, CRP2, LDH3, FIBGN, DDI2, APTT, FERR3 #### [facility] [address] [place] [address] Urea nitrogen [Mass/Vol] 33 mg/dL High 7-20 [facility] Comment on above: Performed By: #### H EMOG, CMP3M, CRP2, LDH3, FIBGN, DDI2, APTT, FERR3 #### [facility] [address] [place] [address] Potassium [Moles/Vol] 3.9 mmol/L Normal 3.5-5.1 [facility] Comment on above: Performed By: #### H EMOG, CMP3M, CRP2, LDH3, FIBGN, DDI2, APTT, FERR3 #### [facility] [address] [place] [address] Albumin [Mass/Vol] 3.2 g/dL Low 3.5-5.0 [facility] Comment on above: Performed By: #### H EMOG, CMP3M, CRP2, LDH3, FIBGN, DDI2, APTT, FERR3 #### [facility] [address] [place] [address] Chloride [Moles/Vol] 112 mmol/L High 98-107 [facility] Comment on above: Performed By: #### H EMOG, CMP3M, CRP2, LDH3, FIBGN, DDI2, APTT, FERR3 #### [facility] [address] [place] [address] Sodium [Moles/Vol] 137 mmol/L Normal 135-145 [facility] Comment on above: Performed By: #### H EMOG, CMP3M, CRP2, LDH3, FIBGN, DDI2, APTT, FERR3 #### [facility] [address] [place] [address] ALP [Catalytic activity/Vol] 81 U/L Normal 38-126 [facility] Comment on above: Performed By: #### H EMOG, CMP3M, CRP2, LDH3, FIBGN, DDI2, APTT, FERR3 #### [facility] [address] [place] [address] ALT [Catalytic activity/Vol] 67 U/L High 0-49 [facility] Comment on above: Result Comment: The ALT test is performed by an updated assay method. Please note that the reference intervals have been changed and are now sex specific. Performed By: #### H EMOG, CMP3M, CRP2, LDH3, FIBGN, DDI2, APTT, FERR3 #### [facility] [address] [place] [address] Anion gap [Moles/Vol] 9 Normal [facility] Comment on above: Performed By: #### H EMOG, CMP3M, CRP2, LDH3, FIBGN, DDI2, APTT, FERR3 #### [facility] [address] [place] [address] AST [Catalytic activity/Vol] 86 U/L High 15-46 [facility] Comment on above: Performed By: #### H EMOG, CMP3M, CRP2, LDH3, FIBGN, DDI2, APTT, FERR3 #### [facility] [address] [place] [address] Calcium [Mass/Vol] 8.5 mg/dL Normal 8.4-10.4 [facility] Comment on above: Performed By: #### H EMOG, CMP3M, CRP2, LDH3, FIBGN, DDI2, APTT, FERR3 #### [facility] [address] [place] [address] CO2 [Moles/Vol] 17 mmol/L Low 22-30 [facility] Comment on above: Performed By: #### H EMOG, CMP3M, CRP2, LDH3, FIBGN, DDI2, APTT, FERR3 #### [facility] [address] [place] [address] Glucose [Mass/Vol] 139 mg/dL High 70-100 [facility] Comment on above: Performed By: #### H EMOG, CMP3M, CRP2, LDH3, FIBGN, DDI2, APTT, FERR3 #### [facility] [address] [place] [address] Protein [Mass/Vol] 5.8 g/dL Low 6.3-8.2 [facility] Comment on above: Performed By: #### H EMOG, CMP3M, CRP2, LDH3, FIBGN, DDI2, APTT, FERR3 #### [facility] [address] [place] [address] Urea nitrogen [Mass/Vol] 31 mg/dL High 7-20 [facility] Comment on above: Performed By: #### H EMOG, CMP3M, CRP2, LDH3, FIBGN, DDI2, APTT, FERR3 #### [facility] [address] [place] [address] Bilirubin [Mass/Vol] 0.5 mg/dL Normal 0.2-1.3 [facility] Comment on above: Performed By: #### H EMOG, CMP3M, CRP2, LDH3, FIBGN, DDI2, APTT, FERR3 #### [facility] [address] [place] [address] Creatinine [Mass/Vol] 2.37 mg/dL High 0.52-1.25 [facility] Comment on above: Performed By: #### H EMOG, CMP3M, CRP2, LDH3, FIBGN, DDI2, APTT, FERR3 #### [facility] [address] [place] [address] GFR/1.73 sq M predicted among blacks MDRD (S/P/Bld) [Vol rate/Area] 33.9 mL/min/{1.73_m2} Abnormal >60 [facility] Comment on above: Performed By: #### H EMOG, CMP3M, CRP2, LDH3, FIBGN, DDI2, APTT, FERR3 #### [facility] [address] [place] [address] GFR/1.73 sq M predicted among non-blacks MDRD (S/P/Bld) [Vol rate/Area] 29.2 mL/min/{1.73_m2} Abnormal >60 [facility] Comment on above: Result Comment: KDIG O [...] CRP2, LDH3, FIBGN, DDI2, APTT, FERR3 #### [facility] [address] [place] [address] Potassium [Moles/Vol] 4.3 mmol/L Normal 3.5-5.1 [facility] Comment on above: Performed By: #### H EMOG, CMP3M, CRP2, LDH3, FIBGN, DDI2, APTT, FERR3 #### [facility] [address] [place] [address] Sodium [Moles/Vol] 136 mmol/L Normal 135-145 [facility] Comment on above: Performed By: #### H EMOG, CMP3M, CRP2, LDH3, FIBGN, DDI2, APTT, FERR3 #### [facility] [address] [place] [address] Albumin [Mass/Vol] 3.0 g/dL Low 3.5-5.0 [facility] Comment on above: Performed By: #### H EMOG, CMP3M, CRP2, LDH3, FIBGN, DDI2, APTT, FERR3 #### [facility] [address] [place] [address] Chloride [Moles/Vol] 110 mmol/L High 98-107 [facility] Comment on above: Performed By: #### H EMOG, CMP3M, CRP2, LDH3, FIBGN, DDI2, APTT, FERR3 #### [facility] [address] [place] [address] Comprehensive Metabolic Pane l w/ Reflex to MGon 10-29-2020 Albumin [Mass/Vol] 3.2 g/dL Low 3.5 - 5 g/dL [place] ALP [Catalytic activity/Vol] 71 U/L 38 - 126 U/L [place] ALT [Catalytic activity/Vol] 67 U/L High 0 - 49 U/L [place] Comment on above: The ALT test is perf ormed by an updated assay method. Please note that the reference intervals have been changed and are now sex specific. Anion gap [Moles/Vol] 7 mmol/L [place], [place] AST [Catalytic activity/Vol] 88 U/L High 15 - 46 U/L [place] Bilirubin Ql (U) 0.6 mg/dL 0.2 - 1.3 mg/dL [place] Calcium [Mass/Vol] 8.9 mg/dL 8.4 - 10. 4 mg/dL [place] Chloride [Moles/Vol] 112 mmol/L High 98 - 10 7 mmol/L [place] CO2 [Moles/Vol] 18 mmol/L Low 22 - 30 mmol/L [place] Creatinine [Mass/Vol] 2.24 mg/dL High 0.52 - 1.25 mg/dL [place] EGFR IF NonAfrican [place]ian 31.3 mL/min Abnormal >60 [place] Comment on above: KDIGO guidelines pro [...] (S/P/Bld) [Vol rate/Area] 36.2 mL/min/{1.73_m2} Abnormal >60 [place] Glucose [Mass/Vol] 132 mg/dL High 70 - 100 mg/dL [place] Interpretation and review of laboratory results Abnormal [place] Potassium [Moles/Vol] 3.9 mmol/L 3.5 - 5.1 mmol/L [place] Protein [Mass/Vol] 6.0 g/dL Low 6.3 - 8.2 g/dL [place] Sodium [Moles/Vol] 137 mmol/L 135 - 145 mmol/L [place] Urea nitrogen [Mass/Vol] 33 mg/dL High 7 - 20 mg/dL [place] Test Performed by [facility], [address], [place], [place] [address] [place] Albumin [Mass/Vol] 3.0 g/dL Low 3.5 - 5 g/dL [place] ALP [Catalytic activity/Vol] 81 U/L 38 - 126 U/L [place] ALT [Catalytic activity/Vol] 67 U/L High 0 - 49 U/L [place] Comment on above: The ALT test is perf ormed by an updated assay method. Please note that the reference intervals have been changed and are now sex specific. Anion gap [Moles/Vol] 9 mmol/L [place] AST [Catalytic activity/Vol] 86 U/L High 15 - 46 U/L [place] Bilirubin Ql (U) 0.5 mg/dL 0.2 - 1.3 mg/dL [place] Calcium [Mass/Vol] 8.5 mg/dL 8.4 - 10. 4 mg/dL [place] Chloride [Moles/Vol] 110 mmol/L High 98 - 10 7 mmol/L [place] CO2 [Moles/Vol] 17 mmol/L Low 22 - 30 mmol/L [place] Creatinine [Mass/Vol] 2.37 mg/dL High 0.52 - 1.25 mg/dL [place] EGFR IF NonAfrican [place]ian 29.2 mL/min Abnormal >60 [place] Comment on above: KDIGO guidelines pro [...] (S/P/Bld) [Vol rate/Area] 33.9 mL/min/{1.73_m2} Abnormal >60 [place] Glucose [Mass/Vol] 139 mg/dL High 70 - 100 mg/dL [facility] Potassium [Moles/Vol] 4.3 mmol/L 3.5 - 5.1 mmol/L [place] Protein [Mass/Vol] 5.8 g/dL Low 6.3 - 8.2 g/dL [facility] Sodium [Moles/Vol] 136 mmol/L 135 - 145 mmol/L [place] Urea nitrogen [Mass/Vol] 31 mg/dL High 7 - 20 mg/dL [place] D-Dimer, Innovanceon 12-16-2 020 D-Dimer, Innovance 1.54 mg/L High 0.00-0.50 [facility] Comment on above: Result Comment: Inno quach D-Dimer values of <0.50 mg/L FEU can be used in combination with a pre-test probability model (e.g. Well's) to exclude pulmonary embolism (PE) disease, as well as an aid in the diagnosis of deep vein thrombosis (DVT). Performed By: #### H EMOG, CMP3M, CRP2, LDH3, FIBGN, DDI2, APTT, FERR3 #### [facility] [address] [place] [address] D-Dimer, Innovance 1.23 mg/L High 0.00-0.50 [facility] Comment on above: Result Comment: Inno quach D-Dimer values of <0.50 mg/L FEU can be used in combination with a pre-test probability model (e.g. Well's) to exclude pulmonary embolism (PE) disease, as well as an aid in the diagnosis of deep vein thrombosis (DVT). Performed By: #### H EMOG, CMP3M, CRP2, LDH3, FIBGN, DDI2, APTT, FERR3 #### [facility] [address] [place] [address] D-Dimer, Quantitativeon - D-Dimer, Quant 1.54 mg/L High 0 - 0.5 mg/L [facility] Comment on above: Innovance D-Dimer va lues of <0.50 mg/L FEU can be used in combination with a pre-test probability model (e.g. Well's) to exclude pulmonary embolism (PE) disease, as well as an aid in the diagnosis of deep vein thrombosis (DVT). D-Dimer, Quant 1.23 mg/L High 0 - 0.5 mg/L [facility] Comment on above: Innovance D-Dimer va lues of <0.50 mg/L FEU can be used in combination with a pre-test probability model (e.g. Well's) to exclude pulmonary embolism (PE) disease, as well as an aid in the diagnosis of deep vein thrombosis (DVT). EKG 12 Lead - Chest Painon 1 12-30-2019 [facility], [facility] Incoming Cardiology Results From [facility] - 10/29/2020 9:41 AM EST [facility] Test Date: 2020-10-28 Pat Name: Reggie León Department: 2AED Room: 468 Gender: M Registration Scheduling Specialist: PARESH : 1965 Requested By: ADNREW SILVER Order Number: [id number] Kim MD: Usama Cedillo Measurements Intervals [place] Rate: 85 P: 15 KS: 184 QRS: -12 QRSD: 104 T: 73 QT: 408 QTc: 486 Interpretive Statements SINUS RHYTHM Electronically Signed On 10-29-2020 9:40:09 EST by Usama Cedillo [facility] Test Date: 2020-10-28 Pat Name: Reggie León Department: 2AED Room: 468 Gender: M Registration Scheduling Specialist: PARESH : 1965 Requested By: ANDREW SILVER Order Number: [id number] Kim MD: Usama Cedillo Measurements Intervals [place] Rate: 85 P: 15 KS: 184 QRS: -12 QRSD: 104 T: 73 QT: 408 QTc: 486 Interpretive Statements SINUS RHYTHM Electronically Signed On 10-29-2020 9:40:09 EST by Usama Cedillo [place] Ferritinon 10-29-2020 Ferritin [Mass/Vol] 714 ng/mL High 18-464 [facility] Comment on above: Performed By: #### H EMOG, CMP3M, CRP2, LDH3, FIBGN, DDI2, APTT, FERR3 #### [facility] [address] [place] [address] Ferritin [Mass/Vol] 714 ng/mL High 18 - 464 ng/mL [place] Interpretation and review of laboratory results Abnormal [place] Test Performed by [facility], [address] [place] [address] [place] Fibrinogenon 10-29-2020 Fibrinogen 534 mg/dL High 200-400 [facility] Comment on above: Performed By: #### H EMOG, CMP3M, CRP2, LDH3, FIBGN, DDI2, APTT, FERR3 #### [facility] [address] [place] [address] Fibrinogen 534 mg/dL High 200 - 400 mg/dL [place] Fibrinogen 587 mg/dL High 200-400 [facility] Comment on above: Performed By: #### H EMOG, CMP3M, CRP2, LDH3, FIBGN, DDI2, APTT, FERR3 #### [facility] [address] [place] [address] Fibrinogen 587 mg/dL High 200 - 400 mg/dL [place] Hemogramon 10-29-2020 Erythrocyte distribution width (RBC) [Ratio] 14.2 % Normal 11.5-14.5 [facility] Comment on above: Performed By: #### H EMOG, CMP3M, CRP2, LDH3, FIBGN, DDI2, APTT, FERR3 #### [facility] [address] [place] [address] Hematocrit (Bld) [Volume fraction] 37.3 % Low 40.0-52.0 [facility] Comment on above: Performed By: #### H EMOG, CMP3M, CRP2, LDH3, FIBGN, DDI2, APTT, FERR3 #### [facility] [address] [place] [address] Hemoglobin (Bld) [Mass/Vol] 12.6 g/dL Low 13.0-18.0 [facility] Comment on above: Performed By: #### H EMOG, CMP3M, CRP2, LDH3, FIBGN, DDI2, APTT, FERR3 #### [facility] [address] [place] [address] MCH (RBC) [Entitic mass] 29.2 pg Normal 26.0-34.0 [facility] Comment on above: Performed By: #### H EMOG, CMP3M, CRP2, LDH3, FIBGN, DDI2, APTT, FERR3 #### [facility] [address] [place] [address] MCHC (RBC) [Mass/Vol] 33.7 % Normal 32.0-36.0 [facility] Comment on above: Performed By: #### H EMOG, CMP3M, CRP2, LDH3, FIBGN, DDI2, APTT, FERR3 #### [facility] [address] [place] [address] MCV (RBC) [Entitic vol] 86.7 fL Normal 80.0-98.0 [facility] Comment on above: Performed By: #### H EMOG, CMP3M, CRP2, LDH3, FIBGN, DDI2, APTT, FERR3 #### [facility] [address] [place] [address] Platelet mean volume (Bld) [Entitic vol] 7.6 fL Normal 7.4-10.4 [facility] Comment on above: Performed By: #### H EMOG, CMP3M, CRP2, LDH3, FIBGN, DDI2, APTT, FERR3 #### [facility] [address] [place] [address] Platelets (Bld) [#/Vol] 255 10*3/uL Normal 140-440 [facility] Comment on above: Performed By: #### H EMOG, CMP3M, CRP2, LDH3, FIBGN, DDI2, APTT, FERR3 #### [facility] [address] [place] [address] RBC (Bld) [#/Vol] 4.30 10*6/uL Low 4.40-5.90 [facility] Comment on above: Performed By: #### H EMOG, CMP3M, CRP2, LDH3, FIBGN, DDI2, APTT, FERR3 #### [facility] [address] [place] [address] WBC (Bld) [#/Vol] 7.8 10*3/uL Normal 3.6-10.7 [facility] Comment on above: Performed By: #### H EMOG, CMP3M, CRP2, LDH3, FIBGN, DDI2, APTT, FERR3 #### [facility] [address] [place] [address] Hemogram w/ Autodiffon 10-29 Abs Baso Cnt 0.0 10*3/uL Normal 0.0-0.2 [facility] Comment on above: Performed By: #### H EMOG, CMP3M, CRP2, LDH3, FIBGN, DDI2, APTT, FERR3 #### [facility] [address] [place] [address] Abs Neutrophile Cnt 3.5 10*3/uL Normal 1.8-7.0 [facility] Comment on above: Performed By: #### H EMOG, CMP3M, CRP2, LDH3, FIBGN, DDI2, APTT, FERR3 #### [facility] [address] [place] [address] Basophils/100 WBC (Bld) 0.3 % Normal 0.0-2.0 [facility] Comment on above: Performed By: #### H EMOG, CMP3M, CRP2, LDH3, FIBGN, DDI2, APTT, FERR3 #### [facility] [address] [place] [address] Eosinophils (Bld) [#/Vol] 0.0 10*3/uL Normal 0.0-0.5 [facility] Comment on above: Performed By: #### H EMOG, CMP3M, CRP2, LDH3, FIBGN, DDI2, APTT, FERR3 #### [facility] [address] [place] [address] Eosinophils/100 WBC (Bld) 0.0 % Low 1.0-6.0 [facility] Comment on above: Performed By: #### H EMOG, CMP3M, CRP2, LDH3, FIBGN, DDI2, APTT, FERR3 #### [facility] [address] [place] [address] Erythrocyte distribution width (RBC) [Ratio] 13.8 % Normal 11.5-14.5 [facility] Comment on above: Performed By: #### H EMOG, CMP3M, CRP2, LDH3, FIBGN, DDI2, APTT, FERR3 #### [facility] [address] [place] [address] Granulocytes/100 WBC (Bld) 79.4 % Normal 40.0-80.0 [facility] Comment on above: Performed By: #### H EMOG, CMP3M, CRP2, LDH3, FIBGN, DDI2, APTT, FERR3 #### [facility] [address] [place] [address] Hematocrit (Bld) [Volume fraction] 36.7 % Low 40.0-52.0 [facility] Comment on above: Performed By: #### H EMOG, CMP3M, CRP2, LDH3, FIBGN, DDI2, APTT, FERR3 #### [facility] [address] [place] [address] Hemoglobin (Bld) [Mass/Vol] 12.2 g/dL Low 13.0-18.0 [facility] Comment on above: Performed By: #### H EMOG, CMP3M, CRP2, LDH3, FIBGN, DDI2, APTT, FERR3 #### [facility] [address] [place] [address] Lymphocytes (Bld) [#/Vol] 0.4 10*3/uL Low 1.0-4.3 [facility] Comment on above: Performed By: #### H EMOG, CMP3M, CRP2, LDH3, FIBGN, DDI2, APTT, FERR3 #### [facility] [address] [place] [address] Lymphocytes/100 WBC (Bld) 8.8 % Low 20.0-40.0 [facility] Comment on above: Performed By: #### H EMOG, CMP3M, CRP2, LDH3, FIBGN, DDI2, APTT, FERR3 #### [facility] [address] [place] [address] MCH (RBC) [Entitic mass] 29.1 pg Normal 26.0-34.0 [facility] Comment on above: Performed By: #### H EMOG, CMP3M, CRP2, LDH3, FIBGN, DDI2, APTT, FERR3 #### [facility] [address] [place] [address] MCHC (RBC) [Mass/Vol] 33.1 % Normal 32.0-36.0 [facility] Comment on above: Performed By: #### H EMOG, CMP3M, CRP2, LDH3, FIBGN, DDI2, APTT, FERR3 #### [facility] [address] [place] [address] MCV (RBC) [Entitic vol] 87.8 fL Normal 80.0-98.0 [facility] Comment on above: Performed By: #### H EMOG, CMP3M, CRP2, LDH3, FIBGN, DDI2, APTT, FERR3 #### [facility] [address] [place] [address] Monocytes (Bld) [#/Vol] 0.5 10*3/uL Normal 0.0-0.8 [facility] Comment on above: Performed By: #### H EMOG, CMP3M, CRP2, LDH3, FIBGN, DDI2, APTT, FERR3 #### [facility] [address] [place] [address] Monocytes/100 WBC (Bld) 11.5 % High 2.0-10.0 [facility] Comment on above: Performed By: #### H EMOG, CMP3M, CRP2, LDH3, FIBGN, DDI2, APTT, FERR3 #### [facility] [address] [place] [address] Platelet mean volume (Bld) [Entitic vol] 7.9 fL Normal 7.4-10.4 [facility] Comment on above: Performed By: #### H EMOG, CMP3M, CRP2, LDH3, FIBGN, DDI2, APTT, FERR3 #### [facility] [address] [place] [address] Platelets (Bld) [#/Vol] 231 10*3/uL Normal 140-440 [facility] Comment on above: Performed By: #### H EMOG, CMP3M, CRP2, LDH3, FIBGN, DDI2, APTT, FERR3 #### [facility] [address] [place] [address] RBC (Bld) [#/Vol] 4.19 10*6/uL Low 4.40-5.90 [facility] Comment on above: Performed By: #### H EMOG, CMP3M, CRP2, LDH3, FIBGN, DDI2, APTT, FERR3 #### [facility] [address] [place] [address] WBC (Bld) [#/Vol] 4.4 10*3/uL Normal 3.6-10.7 [facility] Comment on above: Performed By: #### H EMOG, CMP3M, CRP2, LDH3, FIBGN, DDI2, APTT, FERR3 #### [facility] [address] [place] [address] LDHon 10-29-2020 LDH 676 U/L High 120-246 [facility] Comment on above: Performed By: #### H EMOG, CMP3M, CRP2, LDH3, FIBGN, DDI2, APTT, FERR3 #### [facility] [address] [place] [address] Lactate Dehydrogenaseon 10-14 LD 676 U/L High 120 - 246 U/L [facility], [employer] Lithiumon 10-29-2020 [place] [Moles/Vol] 0.7 mmol/L Normal 0.6-1.2 [facility] Comment on above: Performed By: #### H EMOG, CMP3M, CRP2, LDH3, FIBGN, DDI2, APTT, FERR3 #### [facility] [address] [place] [address] [place] Levelon 10-29-2020 [place] Lvl 0.7 mmol/L 0.6 - 1.2 mmol/L [facility] [employer] Otheron 10-29-2020 Interpretation and review of laboratory results Abnormal [place] Test Performed by [facility], [address] [place], [place] [address] [facility] Interpretation and review of laboratory results Abnormal [facility] [employer] Test Performed by [facility], [address] [place], [place] [address] [facility] Interpretation and review of laboratory results Abnormal [facility] [employer] Test Performed by [facility], [address] [place], [place] [address] [place] Procalcitoninon 10-29-2020 Procalcitonin 0.31 ng/mL Abnormal <0.10 [facility] Comment on above: Performed By: #### H EMOG, CMP3M, CRP2, LDH3, FIBGN, DDI2, APTT, FERR3 #### [facility] [address] [place] [address] Interpretation and review of laboratory results Abnormal [place] Procalcitonin 0.31 ng/mL Abnormal <0.10 [place] Sodium [Moles/Vol] See Below [facility] [place] Comment on above: PCT <0.50 = Low risk of severe sepsis and/or septic shock. PCT >2.00 = High risk of severe sepsis and/or septic shock. Test Performed by [facility], [address] [place] [id number] [place] Vit D 25-OH, Totalon 020 Vit D 25-OH, Total 69 ng/mL Normal 30-100 [facility] Comment on above: Result Comment: Ther apy is based on measurement of Total 25-OHD with the following classification levels: Less than 20 ng/mL: Indicative of Vit D deficiency 20-30 ng/mL: Suggests Vit D insufficiency Optimal: Greater than or equal to 30 ng/mL Test performed by [employer] Immunoassay, measuring Total Vitamin D, not individual fractions. Performed By: #### H EMOG, CMP3M, CRP2, LDH3, FIBGN, DDI2, APTT, FERR3 #### [facility] [address] [place] [address] Vitamin D 25 Hydroxyon 10-29 Vit D, 25-Hydroxy 69 ng/mL 30 - 100 ng/mL [place] Comment on above: Therapy is based on measurement of Total 25-OHD with the following classification levels: Less than 20 ng/mL: Indicative of Vit D deficiency 20-30 ng/mL: Suggests Vit D insufficiency Optimal: Greater than or equal to 30 ng/mL Test performed by [employer] Immuno[employer], measuring Total Vitamin D, not individual fractions. Test Performed by [facility], [address] [place] [address] [place] Arterial Blood Gas Respirato sarah 10-28-2020 Base Excess -5.8 mmol/L Low -3.0-3.0 [facility] Comment on above: Performed By: #### A BGE #### [facility] [address] [place] [address] CO2 [Moles/Vol] 19.3 mmol/L Low 23.0-27.0 [facility] Comment on above: Performed By: #### A BGE #### [facility] [address] [place] [address] FIO2 21 Normal [facility] Comment on above: Result Comment: Perf ormed by CLIA ID: [id number] [place], [place] Performed By: #### A BGE #### [facility] [address] [place] [address] HCO3 (Bld) [Moles/Vol] 18.3 mmol/L Low 21.0-25.0 [facility] Comment on above: Performed By: #### A BGE #### [facility] [address] [place] [address] Oxygen (Bld) [Partial pressure] 69.8 mm[Hg] Low 80.0-100.0 [facility] Comment on above: Performed By: #### A BGE #### [facility] [address] [place] [address] Oxygen saturation in Blood 93.6 % Low 95.0-100.0 [facility] Comment on above: Performed By: #### A BGE #### [facility] [address] [place] [address] pCO2 31.2 mm[Hg] Low 35.0-45.0 [facility] Comment on above: Performed By: #### A BGE #### [facility] [address] [place] [address] pH (Bld) 7.376 Normal 7.350-7.45 0 [facility] Comment on above: Performed By: #### A BGE #### [facility] [address] [place] [address] Brain Natriuretic Peptideon 10-28-2020 Natriuretic peptide B (Bld) [Mass/Vol] 47 pg/mL 0 - 125 pg/mL [facility], [place] CR Chest Portableon 10-28-20 20 CR Chest Portable Patient Name: REGGIE WILSON Diagnostic Radiology ACCESSION EXAM DATE/TIME PROCEDURE ORDERING PROVIDER [id number] 10/28/2020 15:05 EST CR Chest Portable BALAJI SILVER DANIEL M CPT code 02187 Reason For Exam (CR Chest Portable) dyspnea [...] Transcribed Date and Time: 10/28/2020 3:21 Normal [facility] Comp Metabolic Panelon 10-28 ALP [Catalytic activity/Vol] 82 U/L Normal 38-126 [facility] Comment on above: Performed By: #### H EMOG, CMP3M, CRP2, LDH3, FIBGN, DDI2, APTT, FERR3 #### [facility] [address] [place] [address] ALT [Catalytic activity/Vol] 60 U/L High 0-49 [facility] Comment on above: Result Comment: The ALT test is performed by an updated assay method. Please note that the reference intervals have been changed and are now sex specific. Performed By: #### H EMOG, CMP3M, CRP2, LDH3, FIBGN, DDI2, APTT, FERR3 #### [facility] [address] [place] [address] Calcium [Mass/Vol] 8.6 mg/dL Normal 8.4-10.4 [facility] Comment on above: Performed By: #### H EMOG, CMP3M, CRP2, LDH3, FIBGN, DDI2, APTT, FERR3 #### [facility] [address] [place] [address] Glucose [Mass/Vol] 122 mg/dL High 70-100 [facility] Comment on above: Performed By: #### H EMOG, CMP3M, CRP2, LDH3, FIBGN, DDI2, APTT, FERR3 #### [facility] [address] [place] [address] Protein [Mass/Vol] 6.2 g/dL Low 6.3-8.2 [facility] Comment on above: Performed By: #### H EMOG, CMP3M, CRP2, LDH3, FIBGN, DDI2, APTT, FERR3 #### [facility] [address] [place] [address] Urea nitrogen [Mass/Vol] 35 mg/dL High 7-20 [facility] Comment on above: Performed By: #### H EMOG, CMP3M, CRP2, LDH3, FIBGN, DDI2, APTT, FERR3 #### [facility] [address] [place] [address] Anion gap [Moles/Vol] 9 Normal [facility] Comment on above: Performed By: #### H EMOG, CMP3M, CRP2, LDH3, FIBGN, DDI2, APTT, FERR3 #### [facility] [address] [place] [address] AST [Catalytic activity/Vol] 87 U/L High 15-46 [facility] Comment on above: Performed By: #### H EMOG, CMP3M, CRP2, LDH3, FIBGN, DDI2, APTT, FERR3 #### [facility] [address] [place] [address] Bilirubin [Mass/Vol] 0.6 mg/dL Normal 0.2-1.3 [facility] Comment on above: Performed By: #### H EMOG, CMP3M, CRP2, LDH3, FIBGN, DDI2, APTT, FERR3 #### [facility] [address] [place] [address] CO2 [Moles/Vol] 22 mmol/L Normal 22-30 [facility] Comment on above: Performed By: #### H EMOG, CMP3M, CRP2, LDH3, FIBGN, DDI2, APTT, FERR3 #### [facility] [address] [place] [address] Creatinine [Mass/Vol] 2.96 mg/dL High 0.52-1.25 [facility] Comment on above: Performed By: #### H EMOG, CMP3M, CRP2, LDH3, FIBGN, DDI2, APTT, FERR3 #### [facility] [address] [place] [address] GFR/1.73 sq M predicted among blacks MDRD (S/P/Bld) [Vol rate/Area] 25.9 mL/min/{1.73_m2} Abnormal >60 [facility] Comment on above: Performed By: #### H EMOG, CMP3M, CRP2, LDH3, FIBGN, DDI2, APTT, FERR3 #### [facility] [address] [place] [address] GFR/1.73 sq M predicted among non-blacks MDRD (S/P/Bld) [Vol rate/Area] 22.3 mL/min/{1.73_m2} Abnormal >60 [facility] Comment on above: Result Comment: KDIG O [...] CRP2, LDH3, FIBGN, DDI2, APTT, FERR3 #### [facility] [address] [place] [address] Chloride [Moles/Vol] 101 mmol/L Normal 98-107 [facility] Comment on above: Performed By: #### H EMOG, CMP3M, CRP2, LDH3, FIBGN, DDI2, APTT, FERR3 #### [facility] [address] [place] [address] Potassium [Moles/Vol] 3.1 mmol/L Low 3.5-5.1 [facility] Comment on above: Performed By: #### H EMOG, CMP3M, CRP2, LDH3, FIBGN, DDI2, APTT, FERR3 #### [facility] [address] [place] [address] Sodium [Moles/Vol] 133 mmol/L Low 135-145 [facility] Comment on above: Performed By: #### H EMOG, CMP3M, CRP2, LDH3, FIBGN, DDI2, APTT, FERR3 #### [facility] [address] [place] [address] Albumin [Mass/Vol] 3.3 g/dL Low 3.5-5.0 [facility] Comment on above: Performed By: #### H EMOG, CMP3M, CRP2, LDH3, FIBGN, DDI2, APTT, FERR3 #### [facility] [address] [place] [address] Complete Urinalysison 2019 Amorphous Crystal Few Abnormal Negative [facility] Comment on above: Result Comment: . Performed By: #### C UA2 #### [facility] [address] [place] [address] Appearance (U) Clear Normal Clear [facility] Comment on above: Result Comment: . Performed By: #### C UA2 #### [facility] [address] [place] [address] Bacteria LM.HPF (Urine sed) [#/Area] Few Abnormal Negative [facility] Comment on above: Result Comment: . Performed By: #### C UA2 #### [facility] [address] [place] [address] Bilirubin,Urine Negative Normal Negative [facility] Comment on above: Result Comment: . Performed By: #### C UA2 #### [facility] [address] [place] [address] Cast, Granular 0 - 2 Abnormal Negative [facility] Comment on above: Result Comment: . Performed By: #### C UA2 #### [facility] [address] [place] [address] Cast, Hyaline 3 - 5 Abnormal Negative [facility] Comment on above: Result Comment: . Performed By: #### C UA2 #### [facility] [address] [place] [address] Color (U) Yellow Normal Lt. Yellow [facility] Comment on above: Result Comment: . Performed By: #### C UA2 #### [facility] [address] [place] [address] Glucose Ql (U) Normal Normal Normal (<70) [facility] Comment on above: Result Comment: . Performed By: #### C UA2 #### [facility] [address] [place] [address] Ketone,Urine Negative Normal Negative [facility] Comment on above: Result Comment: . Performed By: #### C UA2 #### [facility] [address] [place] [address] Leukocytes,Urine Negative Normal Negative [facility] Comment on above: Result Comment: . Performed By: #### C UA2 #### [facility] [address] [place] [address] Mucous Threads Few Normal Negative [facility] Comment on above: Result Comment: . Performed By: #### C UA2 #### [facility] [address] [place] [address] Nitrites,Urine Negative Normal Negative [facility] Comment on above: Result Comment: . Performed By: #### C UA2 #### [facility] [address] [place] [address] Non-Squamous Epithelial < 1 Abnormal Negative [facility] Comment on above: Result Comment: . Performed By: #### C UA2 #### [facility] [address] [place] [address] Occult Blood,Urine Negative Normal Negative [facility] Comment on above: Result Comment: . Performed By: #### C UA2 #### [facility] [address] [place] [address] pH (U) 5.5 Normal 5.0-8.0 [facility] Comment on above: Result Comment: . Performed By: #### C UA2 #### [facility] [address] [place] [address] Protein (U) [Mass/Vol] 20 mg/dL Abnormal Negative [facility] Comment on above: Result Comment: . Performed By: #### C UA2 #### [facility] [address] [place] [address] RBC LM.HPF (Urine sed) [#/Area] 0 - 2 Normal 0-2 [facility] Comment on above: Result Comment: . Performed By: #### C UA2 #### [facility] [address] [place] [address] Specific [place],Urine 1.015 Normal 1.005 - 1.030 [facility] Comment on above: Result Comment: . Performed By: #### C UA2 #### [facility] [address] [place] [address] Squamous Epithelial 0 - 2 Normal 3-5 [facility] Comment on above: Result Comment: . Performed By: #### C UA2 #### [facility] [address] [place] [address] Urobilinogen,Urine Normal Normal Normal (0-1) [facility] Comment on above: Result Comment: . Performed By: #### C UA2 #### [facility] [address] [place] [address] WBC LM.HPF (Urine sed) [#/Area] 0 - 2 Normal 0-5 [facility] Comment on above: Result Comment: . Performed By: #### C UA2 #### [facility] [address] [place] [address] Comprehensive Metabolic Pane rahul 10-28-2020 Albumin [Mass/Vol] 3.3 g/dL Low 3.5 - 5 g/dL [place] ALP [Catalytic activity/Vol] 82 U/L 38 - 126 U/L [place] ALT [Catalytic activity/Vol] 60 U/L High 0 - 49 U/L [place] Comment on above: The ALT test is perf ormed by an updated assay method. Please note that the reference intervals have been changed and are now sex specific. Anion gap [Moles/Vol] 9 mmol/L [place] AST [Catalytic activity/Vol] 87 U/L High 15 - 46 U/L [place] Bilirubin Ql (U) 0.6 mg/dL 0.2 - 1.3 mg/dL [place] Calcium [Mass/Vol] 8.6 mg/dL 8.4 - 10. 4 mg/dL [place] Chloride [Moles/Vol] 101 mmol/L 98 - 10 7 mmol/L [place] CO2 [Moles/Vol] 22 mmol/L 22 - 30 mmol/L [place] Creatinine [Mass/Vol] 2.96 mg/dL High 0.52 - 1.25 mg/dL [place] EGFR IF NonAfrican Haitian 22.3 mL/min Abnormal >60 [place] Comment on above: KDIGO guidelines pro [...] (S/P/Bld) [Vol rate/Area] 25.9 mL/min/{1.73_m2} Abnormal >60 [place] Glucose [Mass/Vol] 122 mg/dL High 70 - 100 mg/dL [place] Interpretation and review of laboratory results Abnormal [place] Potassium [Moles/Vol] 3.1 mmol/L Low 3.5 - 5.1 mmol/L [place] Protein [Mass/Vol] 6.2 g/dL Low 6.3 - 8.2 g/dL [place] Sodium [Moles/Vol] 133 mmol/L Low 135 - 145 mmol/L [place] Urea nitrogen [Mass/Vol] 35 mg/dL High 7 - 20 mg/dL [place] ED Provider Noteon 0 ED Provider Note Emergency Department Encounter [facility] ED Patient: Reggie León : 1965 Date of Evaluation: 10/28/2020 ED Supervising Physician: Otf Long, DO I independently examined and evaluated Reggie León. In brief, Reggie León is a 55 y.o. male that presents to the emergency department with increased shortness of breath from his correction. Patient has a known COVID-19 infection. Patient [...] and cough. CELINA spoke with the patient's correction who states that he was on 4 [...] EKG: Sinus rhythm rate 85, QTC 486, KS interval 184, Q wave in lead 3, [...] [employer] Otf Long DO 10/28/[address] [facility] ED Provider Note TWILA RAYSHAWNMoe ED eMERGENCY dEPARTMENT eNCOUnter Pt Name: Reggie León Birthdate 1965 Date of evaluation: 10/28/2020 Provider: Andrew Silver, FINISH MIXER - SUBSTANCE ABUSE SPECIALIST This patient was seen in conjunction with [...] file Gets together: Not on file Attends yazidi service: Not on file Active member of [...] History Narrative ? Not on file SCREENINGS @FLOW([id number])@ PHYSICAL EXAM (5+ for level 4, 8+ [...] Department physician in the absence of a referral agent. Please see their accompanying note for interpretation. RADIOLOGY (Per EmergencyPhysician): Interpretation per the Radiologist below, if available at the time of this note: Xr Chest Portable Result Date: 10/28/2020 Patient Name: REGGIE LEÓN Diagnostic Radiology ACCESSION EXAM DATE/TIME PROCEDURE ORDERING PROVIDER [id number] 10/28/2020 15:05 EST CR Chest Portable BALAJI SILVER DANIEL M CPT code 79548 Reason For Exam (CR Chest Portable) dyspnea [...] (*) eGFR 25.9 (*) EGFR IF NonAfrican Haitian 22.3 (*) Albumin,Serum 3.3 (*) Total Protein 6.2 (*) ALT 60 (*) AST 87 (*) All other components within normal limits Narrative: Test Performed by [facility], [address] [place] [address] CBC WITH AUTO DIFFERENTIAL - Abnormal; Notable for the following components: Hemoglobin 12.9 (*) Hematocrit 38.1 (*) Lymphocyte % 13.6 (*) Monocytes 17.8 (*) Eosinophils 0.8 (*) Absolute Lymph # 0.6 (*) All other components within normal limits Narrative: Test Performed by [facility], [address] [place] [address] POCT ARTERIAL - Abnormal; Notable for the following components: pCO2, Arterial 31.2 (*) pO2, Arterial 69.8 (*) HCO3, Arterial 18.3 (*) Base Excess, Arterial -5.8 (*) O2 Sat, Arterial 93.6 (*) TCO2, Arterial 19.3 (*) All other components within normal limits Narrative: Test Performed by [facility], [address] [place] [address] BRAIN NATRIURETIC PEPTIDE Narrative: Test Performed by [facility], [address] [place] [address] TROPONIN Narrative: Test Performed by [place] [address] LACTIC ACID, PLASMA Narrative: Test Performed by [facility], [address] [place] [address] URINALYSIS POCT ARTERIAL All other labs were [...] 6 mg (6 mg Intravenous Given 10/28/20 1711) MDM. Patient presents with hypoxia from an [...] Emergency Medicine Provider NICKI Bustillo CNP 10/28/20 8620 Normal [facility] Hemogram (CBC) w/Auto Diffon 10-28-2020 Absolute Baso # 0.0 10*3/uL 0 - 0.2 10*3/uL [place] Absolute Neut # 3.1 10*3/uL 1.8 - 7 10*3/uL [place] Basophils/100 WBC (Bld) 0.7 % 0 - 2 % [place] Eosinophils (Bld) [#/Vol] 0.0 10*3/uL 0 - 0.5 10*3/uL [place] Eosinophils/100 WBC (Bld) 0.8 % Low 1 - 6 % [place] Erythrocyte distribution width (RBC) [Ratio] 14.0 % 11.5 - 14.5 % [place] Granulocytes/100 WBC (Bld) 67.1 % 40 - 80 % [place] Hematocrit (Bld) [Volume fraction] 38.1 % Low 40 - 52 % [place] Hemoglobin (Bld) [Mass/Vol] 12.9 g/dL Low 13 - 18 g/dL [place] Interpretation and review of laboratory results Abnormal [place] Lymphocytes (Bld) [#/Vol] 0.6 10*3/uL Low 1 - 4.3 10*3/uL [place] Lymphocytes/100 WBC (Bld) 13.6 % Low 20 - 40 % [place] MCH (RBC) [Entitic mass] 29.2 pg 26 - 34 pg [place] MCHC (RBC) [Mass/Vol] 33.9 % 32 - 36 % [place] MCV (RBC) [Entitic vol] 86.2 fL 80 - 98 fL [place] Monocytes (Bld) [#/Vol] 0.8 10*3/uL 0 - 0.8 10*3/uL [place] Monocytes/100 WBC (Bld) 17.8 % High 2 - 10 % [place] Platelet mean volume (Bld) [Entitic vol] 7.4 fL 7.4 - 10.4 fL [place] Platelets (Bld) [#/Vol] 223 10*3/uL 140 - 440 10*3/uL [place] RBC (Bld) [#/Vol] 4.42 10*6/uL 4.4 - 5.9 10*6/uL [place] WBC (Bld) [#/Vol] 4.6 10*3/uL 3.6 - 10.7 10*3/uL [place] Test Performed by [facility], [address], [place], [place] [address] [place] Hemogram w/ Autodiffon 10-28 Abs Baso Cnt 0.0 10*3/uL Normal 0.0-0.2 [facility] Comment on above: Performed By: #### H EMOG, CMP3M, CRP2, LDH3, FIBGN, DDI2, APTT, FERR3 #### [facility] [address] [place] [address] Abs Neutrophile Cnt 3.1 10*3/uL Normal 1.8-7.0 [facility] Comment on above: Performed By: #### H EMOG, CMP3M, CRP2, LDH3, FIBGN, DDI2, APTT, FERR3 #### [facility] [address] [place] [address] Basophils/100 WBC (Bld) 0.7 % Normal 0.0-2.0 [facility] Comment on above: Performed By: #### H EMOG, CMP3M, CRP2, LDH3, FIBGN, DDI2, APTT, FERR3 #### [facility] [address] [place] [address] Eosinophils (Bld) [#/Vol] 0.0 10*3/uL Normal 0.0-0.5 [facility] Comment on above: Performed By: #### H EMOG, CMP3M, CRP2, LDH3, FIBGN, DDI2, APTT, FERR3 #### [facility] [address] [place] [address] Eosinophils/100 WBC (Bld) 0.8 % Low 1.0-6.0 [facility] Comment on above: Performed By: #### H EMOG, CMP3M, CRP2, LDH3, FIBGN, DDI2, APTT, FERR3 #### [facility] [address] [place] [address] Erythrocyte distribution width (RBC) [Ratio] 14.0 % Normal 11.5-14.5 [facility] Comment on above: Performed By: #### H EMOG, CMP3M, CRP2, LDH3, FIBGN, DDI2, APTT, FERR3 #### [facility] [address] [place] [address] Granulocytes/100 WBC (Bld) 67.1 % Normal 40.0-80.0 [facility] Comment on above: Performed By: #### H EMOG, CMP3M, CRP2, LDH3, FIBGN, DDI2, APTT, FERR3 #### [facility] [address] [place] [address] Hematocrit (Bld) [Volume fraction] 38.1 % Low 40.0-52.0 [facility] Comment on above: Performed By: #### H EMOG, CMP3M, CRP2, LDH3, FIBGN, DDI2, APTT, FERR3 #### [facility] [address] [place] [address] Hemoglobin (Bld) [Mass/Vol] 12.9 g/dL Low 13.0-18.0 [facility] Comment on above: Performed By: #### H EMOG, CMP3M, CRP2, LDH3, FIBGN, DDI2, APTT, FERR3 #### [facility] [address] [place] [address] Lymphocytes (Bld) [#/Vol] 0.6 10*3/uL Low 1.0-4.3 [facility] Comment on above: Performed By: #### H EMOG, CMP3M, CRP2, LDH3, FIBGN, DDI2, APTT, FERR3 #### [facility] [address] [place] [address] Lymphocytes/100 WBC (Bld) 13.6 % Low 20.0-40.0 [facility] Comment on above: Performed By: #### H EMOG, CMP3M, CRP2, LDH3, FIBGN, DDI2, APTT, FERR3 #### [facility] [address] [place] [address] MCH (RBC) [Entitic mass] 29.2 pg Normal 26.0-34.0 [facility] Comment on above: Performed By: #### H EMOG, CMP3M, CRP2, LDH3, FIBGN, DDI2, APTT, FERR3 #### [facility] [address] [place] [address] MCHC (RBC) [Mass/Vol] 33.9 % Normal 32.0-36.0 [facility] Comment on above: Performed By: #### H EMOG, CMP3M, CRP2, LDH3, FIBGN, DDI2, APTT, FERR3 #### [facility] [address] [place] [address] MCV (RBC) [Entitic vol] 86.2 fL Normal 80.0-98.0 [facility] Comment on above: Performed By: #### H EMOG, CMP3M, CRP2, LDH3, FIBGN, DDI2, APTT, FERR3 #### [facility] [address] [place] [address] Monocytes (Bld) [#/Vol] 0.8 10*3/uL Normal 0.0-0.8 [facility] Comment on above: Performed By: #### H EMOG, CMP3M, CRP2, LDH3, FIBGN, DDI2, APTT, FERR3 #### [facility] [address] [place] [address] Monocytes/100 WBC (Bld) 17.8 % High 2.0-10.0 [facility] Comment on above: Performed By: #### H EMOG, CMP3M, CRP2, LDH3, FIBGN, DDI2, APTT, FERR3 #### [facility] [address] [place] [address] Platelet mean volume (Bld) [Entitic vol] 7.4 fL Normal 7.4-10.4 [facility] Comment on above: Performed By: #### H EMOG, CMP3M, CRP2, LDH3, FIBGN, DDI2, APTT, FERR3 #### [facility] [address] [place] [address] Platelets (Bld) [#/Vol] 223 10*3/uL Normal 140-440 [facility] Comment on above: Performed By: #### H EMOG, CMP3M, CRP2, LDH3, FIBGN, DDI2, APTT, FERR3 #### [facility] [address] [place] [address] RBC (Bld) [#/Vol] 4.42 10*6/uL Normal 4.40-5.90 [facility] Comment on above: Performed By: #### H EMOG, CMP3M, CRP2, LDH3, FIBGN, DDI2, APTT, FERR3 #### [facility] [address] [place] [address] WBC (Bld) [#/Vol] 4.6 10*3/uL Normal 3.6-10.7 [facility] Comment on above: Performed By: #### H EMOG, CMP3M, CRP2, LDH3, FIBGN, DDI2, APTT, FERR3 #### [facility] [address] [place] [address] Lactic Acidon 10-28-2020 Lactate [Moles/Vol] 1.6 mmol/L Normal 0.7-2.0 [facility] Comment on above: Performed By: #### H EMOG, CMP3M, CRP2, LDH3, FIBGN, DDI2, APTT, FERR3 #### [facility] [address] [place] [address] Lactic Acid, Plasmaon 2019 Lactate [Moles/Vol] 1.6 mmol/L 0.7 - 2 mmol/L [place] NT pro BNPon 10-28-2020 Natriuretic peptide B (Bld) [Mass/Vol] 47 pg/mL Normal 0-125 [facility] Comment on above: Performed By: #### H EMOG, CMP3M, CRP2, LDH3, FIBGN, DDI2, APTT, FERR3 #### [facility] [address] [place] [address] Otheron 10-28-2020 Test Performed by [facility], [address] [place] [address] [place] Test Performed by [facility], [address] [place] [id number] [place] [address] POCT Arterialon 10-28-2020 Base Excess, Arterial -5.8 mmol/L Low -3 - 3 mmol/L [place] HCO3, Arterial 18.3 mmol/L Low 21 - 25 mmol/L [place] Interpretation and review of laboratory results Abnormal [place] Oxygen saturation in Blood 93.6 % Low 95 - 100 % [place] pCO2, Arterial 31.2 mm[Hg] Low 35 - 45 mm[Hg] [place] pH, Arterial 7.376 [place] pO2, Arterial 69.8 mm[Hg] Low 80 - 100 mm[Hg] [place] Sodium [Moles/Vol] 21 mmol/L [place] Comment on above: Performed by CLIA ID : [id number] [place] TCO2, Arterial 19.3 mmol/L Low 23 - 27 mmol/L [place] Test Performed by [facility], [address], [place], [place] [address] [place] Procalcitoninon 10-28-2020 Interpretation See Below Normal [facility] Comment on above: Result Comment: PCT <0.50 = Low risk of severe sepsis and/or septic shock. PCT >2.00 = High risk of severe sepsis and/or septic shock. Performed By: #### H EMOG, CMP3M, CRP2, LDH3, FIBGN, DDI2, APTT, FERR3 #### [facility] [address] [place] [address] Respiratory Panel, Molecular , with COVID-19 (Restricted: peds pts or suitable admitted adults)on 10-28-2020 Respiratory Panel Molecular, with COVID NEGATIVE: No targets were detected by the [employer] Upper Respiratory Pathogens PCR Panel. _ Expected Result: Not Detected The [employer] Upper Respiratory Pathogens PCR Panel can detect [...] management decisions. This assay was developed by [employer] and distributed under an Emergency Use Authorization (EUA) granted by the FDA for the qualitative detection of SARS-CoV-2 nucleic acid. Provider and patient fact sheets can be found at https://www.fda.gov/media/ 627832/download and https://www.fda.gov/media/ 066801/download. [place] Test Performed by [facility], [address] [place] [address] [place] Troponin Ion 10-28-2020 Troponin I.cardiac [Mass/Vol] ng/mL Normal 0.000-0.03 4 [facility] Comment on above: Result Comment: . Performed By: #### H EMOG, CMP3M, CRP2, LDH3, FIBGN, DDI2, APTT, FERR3 #### [facility] [address] [place] [address] Troponin x1on 10-28-2020 Troponin I.cardiac [Mass/Vol] ng/mL 0 - 0.034 ng/mL [place] Comment on above: . Urinalysison 10-28-2020 AMORPHOUS CRYSTAL Few Abnormal Negative /[HPF] [place] Comment on above: . Appearance (U) Clear Clear NA [place] Comment on above: . Bacteria, UA Few Abnormal Negative /[HPF] [place] Comment on above: . Bilirubin Urine Negative Negative mg/dL [place] Comment on above: . Color (U) Yellow Lt. Yellow NA [place] Comment on above: . Glucose, Ur Normal Normal (<70) mg/dL [place] Comment on above: . Granular Casts, UA 0-2 Abnormal Negative /[LPF] [place] Comment on above: . Hyaline Casts, UA 3-5 Abnormal Negative /[LPF] [place] Comment on above: . Interpretation and review of laboratory results Abnormal [place] Ketones Ql (U) Negative Negative mg/dL [place] Comment on above: . LEUKOCYTES, UA Negative Negative Mary/uL [place] Comment on above: . Mucous Threads Few Negative /[LPF] [place] Comment on above: . Nitrite, Urine Negative Negative NA [place] Comment on above: . Non-Squamous Epithelial <1 Abnormal Nega tive /[HPF] [place] Comment on above: . Occult Blood,Urine Negative Negative mg/dL [place] Comment on above: . pH (U) 5.5 [pH] [place] Comment on above: . Protein (U) [Mass/Vol] 20 mg/dL Abnormal Negative Me [place] Comment on above: . RBC (U) [#/Vol] 0-2 0 - 2 /[HPF] [place] Comment on above: . Specific [place], Urine 1.015 [place] Comment on above: . Squam Epithel, UA 0-2 3 - 5 /[HPF] [place] Comment on above: . Urobilinogen, Urine Normal Normal (0-1) mg/dL [place] Comment on above: . WBC, UA 0-2 0 - 5 /[HPF] [place] Comment on above: . Test Performed by [facility], [address], [place], [place] [address] [place] XR CHEST PORTABLEon 10-28-20 20 [place], [facility] Incoming Radiology Results From [facility] - 10/28/2020 3:21 PM EST Patient Name: REGGIE LEÓN Diagnostic Radiology ACCESSION EXAM DATE/TIME PROCEDURE ORDERING PROVIDER [id number] 10/28/2020 15:05 EST CR Chest Portable BALAJI SILVER DANIEL M CPT code 57457 Reason For Exam (CR Chest Portable) dyspnea [...] JOHN Transcribed Date and Time: 10/28/2020 3:21 [place] Patient Name: REGGIE WILSON Diagnostic Radiology ACCESSION EXAM DATE/TIME PROCEDURE ORDERING PROVIDER [id number] 10/28/2020 15:05 EST CR Chest Portable BALAJI SILVER DANIEL M CPT code 53353 Reason For Exam (CR Chest Portable) dyspnea [...] JOHN Transcribed Date and Time: 10/28/2020 3:21 [place] BMP with eGFRon 05-05-2020 Age - Reported 54 years Normal [facility] Comment on above: Performed By: #### 2 [id number] #### [facility],[address] [place] [address] Anion gap [Moles/Vol] 11 mmol/L Normal 10 - 20 [facility] Comment on above: Performed By: #### 2 [address]6020 #### [facility],[address] [place] [address] Calcium [Mass/Vol] 9.5 mg/dL Normal 8.6 - 10.2 [facility] Comment on above: Performed By: #### [id number] #### [facility],[address] [place] [address] [id number] CO2 [Moles/Vol] 24.7 mmol/L Normal 21.0 - 31.0 [facility] Comment on above: Performed By: #### [id number] #### [facility],[address] [place] [address] [id number] GFR/1.73 sq M predicted among non-blacks MDRD (S/P/Bld) [Vol rate/Area] 27 ML/MINUTE Low 60 - 999 [facility] Comment on above: Performed By: #### [id number] #### [facility],[address] [place] [address] [id number] GFR/1.73 sq M predicted among non-blacks MDRD (S/P/Bld) [Vol rate/Area] 33 ML/MINUTE Low 60 - 999 [facility] Comment on above: Result Comment: ACCO RDING TO THE NATIONAL KIDNEY DISEASE EDUCATION PROGRAM(NKDE), A NORMAL eGFR IS A VALUE GREATER THAN OR EQUAL TO 60 ML/MIN/1.73 SQ METERS. CHRONIC KIDNEY DISEASE: <60mL/MIN/1.73 SQ METERS KIDNEY FAILURE: <15mL/MIN/1.73 SQ METERS THIS TEST SHOULD ONLY BE USED FOR PATIENTS 18 YEARS OF AGE AND OLDER. Performed By: #### 2 17200 #### [facility],[address] [place] [address] 03387 GFR/1.73 sq M predicted among non-blacks MDRD (S/P/Bld) [Vol rate/Area] Normal [facility] Comment on above: Result Comment: BASI C METABOLIC PANEL Performed By: #### 2 69935 #### [facility],[address] [place] [address] 73293 Glucose [Mass/Vol] 113 mg/dL High 74 - 106 [facility] Comment on above: Performed By: #### 2 45220 #### [facility],[address] [place] [address] 44327 Potassium [Moles/Vol] 4.1 mmol/L Normal 3.5 - 5.1 [facility] Comment on above: Performed By: #### 2 96412 #### [facility],[address] [place], [place] [address] Urea nitrogen [Mass/Vol] 24 mg/dL High 6 - 20 [facility] Comment on above: Performed By: #### 2 81241 #### [facility],[address] [place] [address] 96447 CBC + DIFFon 05-05-2020 Basophils (Bld) [#/Vol] 0.10 x10EE3/UL Normal 0. 00 - 0.10 [facility] Comment on above: Performed By: #### 2 39420 #### [facility],[address] [place] [address] 63905 Basophils/100 WBC (Bld) 0.9 % Normal 0.0 - 2.0 [facility] Comment on above: Performed By: #### 2 77071 #### [facility],[address] [place] [address] 86129 CBC + DIFF Normal [facility] Comment on above: Result Comment: CBC- COMPLETE BLOOD COUNT Performed By: #### 2 62518 #### [facility],[address] [place] [address] 79860 Eosinophils (Bld) [#/Vol] 0.40 x10EE3/UL Normal 0.00 - 0.50 [facility] Comment on above: Performed By: #### 2 61010 #### [facility],[address] [place] [address] 78735 Eosinophils/100 WBC (Bld) 5.4 % Normal 0.0 - 7.0 [facility] Comment on above: Performed By: #### 2 46482 #### [facility],[address] [place] [address] Erythrocyte distribution width (RBC) [Ratio] 12.7 % Normal 12.0 - 15.6 [facility] Comment on above: Performed By: #### 2 14244 #### [facility],[address] [place] [address] Hematocrit (Bld) [Volume fraction] 37.0 % Low 40.0 - 52.0 [facility] Comment on above: Performed By: #### 2 41886 #### [facility],[address] [place] [address] Hemoglobin (Bld) [Mass/Vol] 13.0 g/dL Normal 13.0 - 17.5 [facility] Comment on above: Performed By: #### 2 43977 #### [facility],[address] [place], [place] [address] Lymphocytes (Bld) [#/Vol] 1.50 x10EE3/UL Normal 0.80 - 2.80 [facility] Comment on above: Performed By: #### 2 41842 #### [facility],[address] [place], [place] [address] Lymphocytes/100 WBC (Bld) 18.7 % Low 20.0 - 45.0 [facility] Comment on above: Performed By: #### 2 48105 #### [facility],[address] [place], [place] [address] MANUAL DIFF N/A Normal [facility] Comment on above: Performed By: #### 2 37546 #### [facility],[address],[place] [address] MCH (RBC) [Entitic mass] 31 pg Normal 27 - 33 [facility] Comment on above: Performed By: #### 2 81913 #### [facility],[address] [place] [address] 75134 MCHC (RBC) [Mass/Vol] 35 X10 3 Normal 32 - 36 [facility] Comment on above: Performed By: #### 2 05713 #### [facility],[address] [place] [address] 10308 MCV (RBC) [Entitic vol] 87 fL Normal 81 - 98 [facility] Comment on above: Performed By: #### 2 43055 #### [facility],[address] [place] [address] 83010 Monocytes (Bld) [#/Vol] 1.20 x10EE3/UL High 0. 20 - 1.00 [facility] Comment on above: Performed By: #### 2 65602 #### [facility],[address] [place] [address] 71315 MONOS % 14.8 % High 0.0 - 10.0 [facility] Comment on above: Performed By: #### 2 46276 #### [facility],[address] [place] [address] 35633 Morphology Crispin (Bld) [Interp] N/A Normal [facility] Comment on above: Performed By: #### 2 29796 #### [facility],[address] [place] [address] 77268 Neutrophils (Bld) [#/Vol] 4.80 x10EE3/UL Normal 1.50 - 7.10 [facility] Comment on above: Performed By: #### 2 84978 #### [facility],[address] [place] [address] 70203 Neutrophils/100 WBC (Bld) 60.2 % Normal 46.0 - 76.0 [facility] Comment on above: Performed By: #### 2 44620 #### [facility],[address] [place] [address] Platelet mean volume (Bld) [Entitic vol] 7.2 fL Normal 6.4 - 10.5 [facility] Comment on above: Result Comment: AUTO MATED DIFFERENTIAL Performed By: #### 2 57181 #### [facility],[address] [place] [address] 02068 Platelets (Bld) [#/Vol] 286 x10EE3/UL Normal 150 - 450 [facility] Comment on above: Performed By: #### 2 33781 #### [facility],[address] [place], [place] [address] RBC (Bld) [#/Vol] 4.24 x 10EE6/UL Low 4.50 - 6.00 [facility] Comment on above: Performed By: #### 2 15808 #### [facility],[address] [place], [place] [address] WBC (Bld) [#/Vol] 8.0 x 10EE3/UL Normal 4.5 - 10.8 [facility] Comment on above: Performed By: #### 2 35362 #### [facility],[address] [place], [place] [address] CULTURE URINEon 05-05-2020 CULTURE URINE CULTURE URINE _URINE CULTURE_ M I C R O B I O L O G Y R E P O R T FINAL ------- Antimicrobial Susceptibility and Organism Identification Report -------- Specimen Number : [id number] Requested : 05/05/20 Specimen Source : URINE Collected : 05/05/20 03:00 Arerdondo of Isolation : MEME HUANG Received : 05/05/20 03:00 Requesting Physician : FLORECITA -- Patient/Specimen Tests and Comments Specimen Comments -------- -------- FINAL REPORT: NO GROWTH AT 48 HOURS -- Tech : Source : URINE ID # : [id number] FINAL Report Date : / / : Collected : 05/05/20 03:00 05/07/20.1244.KLS. 05/06/20.0705.JLN. 05/07/20.1245.KLS.COMPLETE Normal [facility] Comment on above: Performed By: #### 2 41617 #### [facility],[address] [place] [address] LITHIUMon 05-05-2020 [place] [Moles/Vol] 0.9 mmol/L Normal 0.6 - 1.2 [facility] Comment on above: Performed By: #### 2 58628 #### [facility],[address] [place] [address] 29475 RENAL FUNCTION PANELon 05-05 Albumin [Mass/Vol] 3.3 g/dL Low 3.4 - 4.8 [facility] Comment on above: Performed By: #### 2 56223 #### [facility],[address] [place] [address] B/C RATIO 10 ratio Normal 0 - 30 [facility] Comment on above: Performed By: #### 2 96022 #### [facility],[address] [place] [address] Chloride [Moles/Vol] 107 mmol/L Normal 98 - 107 [facility] Comment on above: Performed By: #### 2 19596 #### [facility],[address] [place], [place] [address] Creatinine [Mass/Vol] 2.5 mg/dL High 0.7 - 1.3 [facility] Comment on above: Performed By: #### 2 20923 #### [facility],[address] [place] [address] 35195 Phosphate [Mass/Vol] 4.9 mg/dL Normal 2.7 - 4.9 [facility] Comment on above: Performed By: #### 2 75149 #### [facility],[address] [place], [place] [address] RENAL FUNCTION PANEL Normal [facility] Comment on above: Result Comment: JESSICA L FUNCTION PANEL Performed By: #### 2 51404 #### [facility],[address] [place] [address] 45386 Sodium [Moles/Vol] 139 mmol/L Normal 136 - 145 [facility] Comment on above: Performed By: #### 2 56510 #### [facility],[address] [place], [place] [address] URINALYSISon 05-05-2020 Bilirubin [Mass/Vol] Negative Normal NORMAL: NEGATIVE [facility] Comment on above: Performed By: #### 2 03679 #### [facility],[address] [place], [place] [address] Blood Negative Normal NORMAL: NEGATIVE [facility] Comment on above: Performed By: #### 2 42050 #### [facility],[address] [place] [address] Clarity (U) clear Normal NORMAL: CLEAR [facility] Comment on above: Performed By: #### 2 54820 #### [facility],[address] [place] [address] Color (U) yellow Normal NORMAL: YELLOW [facility] Comment on above: Performed By: #### 2 23050 #### [facility],[address] [place] [address] Glucose [Mass/Vol] NORM Normal NORMAL: NORMAL [facility] Comment on above: Performed By: #### 2 61578 #### [facility],[address] [place], [place] [address] Ketone Negative Normal NORMAL: NEGATIVE [facility] Comment on above: Performed By: #### 2 03892 #### [facility],[address] [place] [address] Microscopic NOT INDICATED Normal [facility] Comment on above: Performed By: #### 2 70351 #### [facility],[address] [place] [address] 58430 Nitrite Ql (U) Negative Normal NORMAL: NEGATIVE [facility] Comment on above: Performed By: #### 2 51055 #### [facility],[address] [place], [place] [address] pH (Bld) 6 Normal NORMAL: 5.0-8.0 [facility] Comment on above: Performed By: #### 2 52651 #### [facility],[address] [place], [place] [address] Protein (U) [Mass/Vol] Negative Normal JENN L: NEGATIVE [facility] Comment on above: Performed By: #### 2 40344 #### [facility],[address] [place] [address] Sp [place] 1.020 Normal NORMAL: 1.010-1.03 0 [facility] Comment on above: Performed By: #### 2 53950 #### [facility],[address] [place] [address] Specimen type Nom (Spec) UNSPECIFIED Normal [facility] Comment on above: Performed By: #### 2 28883 #### [facility],[address] [place] [address] Urobilinog NORM Normal NORMAL: NORMAL [facility] Comment on above: Performed By: #### 2 56109 #### [facility],[address] [place] [address] WBC (Bld) [#/Vol] Negative Normal NORMAL: NEGATIVE [facility] Comment on above: Performed By: #### 2 50369 #### [facility],[address] [place] [address] CBC + DIFFon 04-08-2020 Basophils (Bld) [#/Vol] 0.10 x10EE3/UL Normal 0. 00 - 0.10 [facility] Comment on above: Performed By: #### 2 14628 ####[facility],[address] [place] [address] 54678 Basophils/100 WBC (Bld) 1.2 % Normal 0.0 - 2.0 [facility] Comment on above: Performed By: #### 2 60946 ####[facility],[address] [place] [address] CBC + DIFF Normal [facility] Comment on above: Result Comment: CBC- COMPLETE BLOOD COUNT Performed By: #### 2 26941 ####[facility],[address] [place], [place] [address] Eosinophils (Bld) [#/Vol] 0.40 x10EE3/UL Normal 0.00 - 0.50 [facility] Comment on above: Performed By: #### 2 95400 ####[facility],[address] [place] [address] 13249 Eosinophils/100 WBC (Bld) 4.3 % Normal 0.0 - 7.0 [facility] Comment on above: Performed By: #### 2 32616 ####[place] [address] Erythrocyte distribution width (RBC) [Ratio] 12.9 % Normal 12.0 - 15.6 [facility] Comment on above: Performed By: #### 2 74826 ####[place] [address] Hematocrit (Bld) [Volume fraction] 38.7 % Low 40.0 - 52.0 [facility] Comment on above: Performed By: #### 2 74809 ####[place] [id number] Hemoglobin (Bld) [Mass/Vol] 13.4 g/dL Normal 13.0 - 17.5 [facility] Comment on above: Performed By: #### 2 78738 ####[place] [id number] Lymphocytes (Bld) [#/Vol] 1.80 x10EE3/UL Normal 0.80 - 2.80 [facility] Comment on above: Performed By: #### 2 39190 ####[address] [address] Lymphocytes/100 WBC (Bld) 21.9 % Normal 20.0 - 45.0 [facility] Comment on above: Performed By: #### 2 37840 ####[facility],[address] [place] [address] MANUAL DIFF N/A Normal [facility] Comment on above: Performed By: #### 2 14647 ####[facility],[address] [place] [address] MCH (RBC) [Entitic mass] 31 pg Normal 27 - 33 [facility] Comment on above: Performed By: #### 2 22677 ####[place] [address] MCHC (RBC) [Mass/Vol] 35 X10 3 Normal 32 - 36 [facility] Comment on above: Performed By: #### 2 19902 ####[place] [address] MCV (RBC) [Entitic vol] 88 fL Normal 81 - 98 [facility] Comment on above: Performed By: #### 2 94310 ####[place] [address] Monocytes (Bld) [#/Vol] 1.20 x10EE3/UL High 0. 20 - 1.00 [facility] Comment on above: Performed By: #### 2 76167 ####[place] [id number] MONOS % 14.1 % High 0.0 - 10.0 [facility] Comment on above: Performed By: #### 2 66461 ####[facility],[address] [place], [place] [address] Morphology Cris[place] (Bld) [Interp] N/A Normal [facility] Comment on above: Performed By: #### 2 15444 ####[place] [address] Neutrophils (Bld) [#/Vol] 4.90 x10EE3/UL Normal 1.50 - 7.10 [facility] Comment on above: Performed By: #### 2 12976 ####[place] [address],[place] [address] Neutrophils/100 WBC (Bld) 58.5 % Normal 46.0 - 76.0 [facility] Comment on above: Performed By: #### 2 41561 ####[facility],[address] [place] [address] Platelet mean volume (Bld) [Entitic vol] 7.4 fL Normal 6.4 - 10.5 [facility] Comment on above: Result Comment: AUTO MATED DIFFERENTIAL Performed By: #### 2 40584 ####[address] [address] Platelets (Bld) [#/Vol] 268 x10EE3/UL Normal 150 - 450 [facility] Comment on above: Performed By: #### 2 77973 ####[address] [address] RBC (Bld) [#/Vol] 4.41 x 10EE6/UL Low 4.50 - 6.00 [facility] Comment on above: Performed By: #### 2 71983 ####[address] [address] WBC (Bld) [#/Vol] 8.3 x 10EE3/UL Normal 4.5 - 10.8 [facility] Comment on above: Performed By: #### 2 43562 ####[place] [id number] CULTURE URINEon 04-08-2020 CULTURE URINE CULTURE URINE _URINE CULTURE_ M I C R O B I O L O G Y R E P O R T FINAL ------- Antimicrobial Susceptibility and Organism Identification Report -------- Specimen Number : [id number] Requested : 05/26/20 Specimen Source : CLEAN CATCH URINE Collected : 04/08/20 06:28 Arredondo of Isolation : MEME HUANG Received : 04/08/20 06:28 Requesting Physician : FLORECITA -- Patient/Specimen Tests and Comments Specimen Comments -------- -------- FINAL REPORT: NO GROWTH AT 48 HOURS -- Tech : Source : CLEAN CATCH URINE ID # : [id number] FINAL Report Date : / / : Collected : 04/08/20 06:28 04/10/20.1059.BKO. 04/09/20.1214.KLS. 04/10/20.1059.BKO.WILLI Normal [facility] Comment on above: Performed By: #### 2 70417 #### [facility],[address] [place], [place] [id number] HEPATIC FUNCTION PANELon Albumin [Mass/Vol] 3.4 g/dL Normal 3.4 - 4.8 [facility] Comment on above: Performed By: #### 2 17506 ####[facility],[address] [place] [address] Performed By: #### 2 19761 ####[facility],[address] [place], [place] [address] ALK PHOS 65 U/L Normal 38 - 126 [facility] Comment on above: Performed By: #### 2 42510 ####[facility],[address] [place], [place] [address] ALT/SGPT 16 U/L Normal 10 - 40 [facility] Comment on above: Performed By: #### 2 25197 ####[facility],[address] [place] [address] AST/SGOT 10 U/L Low 13 - 39 [facility] Comment on above: Performed By: #### 2 02189 ####[facility],[address] [place], [place] [address] Bilirubin [Mass/Vol] 0.4 mg/dL Normal 0.0 - 1.5 [facility] Comment on above: Performed By: #### 2 13986 ####[facility],[address] [place], [place] [address] Bilirubin.direct [Mass/Vol] 0.1 mg/dL Normal 0.0 - 0.1 [facility] Comment on above: Performed By: #### 2 66253 ####[facility],[address] [place], [place] [address] HEPATIC FUNCTION PANEL Normal [facility] Comment on above: Result Comment: HEPA TIC FUNCTION PROFILE Performed By: #### 2 40259 ####[facility],[address] [place] [address] 03489 Protein [Mass/Vol] 5.4 g/dL Low 6.4 - 8.3 [facility] Comment on above: Performed By: #### 2 65502 ####[facility],[address] [place] [address] 71937 LITHIUMon 04-08-2020 [place] [Moles/Vol] 0.7 mmol/L Normal 0.6 - 1.2 [facility] Comment on above: Performed By: #### 2 43429 ####[facility],[address] [place] [address] 28864 RENAL FUNCTION PANELon 04-08 B/C RATIO 11 ratio Normal 0 - 30 [facility] Comment on above: Performed By: #### 2 77044 ####[facility],[address] [place] [address] 91454 Calcium [Mass/Vol] 9.5 mg/dL Normal 8.6 - 10.2 [facility] Comment on above: Performed By: #### 2 91360 ####[facility],[address] [place] [address] 95696 Chloride [Moles/Vol] 105 mmol/L Normal 98 - 107 [facility] Comment on above: Performed By: #### 2 25248 ####[facility],[address] [place] [address] 51670 CO2 [Moles/Vol] 25.4 mmol/L Normal 21.0 - 31.0 [facility] Comment on above: Performed By: #### 2 86864 ####[facility],[address] [place] [address] 72216 Creatinine [Mass/Vol] 2.1 mg/dL High 0.7 - 1.3 [facility] Comment on above: Performed By: #### 2 28229 ####[facility],[address] [place] [address] 99630 Glucose [Mass/Vol] 105 mg/dL Normal 74 - 106 [facility] Comment on above: Performed By: #### 2 70411 ####[facility],[address] [place] [address] 33018 Phosphate [Mass/Vol] 5.2 mg/dL High 2.7 - 4.9 [facility] Comment on above: Performed By: #### 2 89265 ####[facility],[address] [place] [address] 08431 Potassium [Moles/Vol] 3.8 mmol/L Normal 3.5 - 5.1 [facility] Comment on above: Performed By: #### 2 73347 ####[facility],[address] [place] [address] RENAL FUNCTION PANEL Normal [facility] Comment on above: Result Comment: JESSICA L FUNCTION PANEL Performed By: #### 2 78437 ####[facility],[address] [place] [address] Sodium [Moles/Vol] 139 mmol/L Normal 136 - 145 [facility] Comment on above: Performed By: #### 2 03632 ####[facility],[address] [place] [address] 54070 Urea nitrogen [Mass/Vol] 23 mg/dL High 6 - 20 [facility] Comment on above: Performed By: #### 2 96297 ####[facility],[address] [place], [place] [address] URINALYSISon 04-08-2020 Bilirubin [Mass/Vol] Negative Normal NORMAL: NEGATIVE [facility] Comment on above: Performed By: #### 2 51513 #### [facility],[address] [place] [address] 23983 Blood Negative Normal NORMAL: NEGATIVE [facility] Comment on above: Performed By: #### 2 35995 #### [facility],[address] [place] [address] 53938 Clarity (U) clear Normal NORMAL: CLEAR [facility] Comment on above: Performed By: #### 2 20900 #### [facility],[address] [place] [address] 71045 Color (U) p.yel Normal NORMAL: YELLOW [facility] Comment on above: Performed By: #### 2 67742 #### [facility],[address] [place] [address] 60405 Glucose [Mass/Vol] NORM Normal NORMAL: NORMAL [facility] Comment on above: Performed By: #### 2 51580 #### [facility],[address] [place] [address] 95301 Ketone Negative Normal NORMAL: NEGATIVE [facility] Comment on above: Performed By: #### 2 49826 #### [facility],[address] [place] [address] Microscopic NOT INDICATED Normal [facility] Comment on above: Performed By: #### 2 08039 #### [facility],[address] [place] [address] 26311 Nitrite Ql (U) Negative Normal NORMAL: NEGATIVE [facility] Comment on above: Performed By: #### 2 07259 #### [facility],[address] [place] [address] 80250 pH (Bld) 6 Normal NORMAL: 5.0-8.0 [facility] Comment on above: Performed By: #### 2 37354 #### [facility],[address] [place] [address] 91662 Protein (U) [Mass/Vol] Negative Normal JENN L: NEGATIVE [facility] Comment on above: Performed By: #### 2 22729 #### [facility],[address] [place] [address] 47614 Sp [place] 1.020 Normal NORMAL: 1.010-1.03 0 [facility] Comment on above: Performed By: #### 2 19721 #### [facility] [place] [address] Specimen type Nom (Spec) Clean catch Normal [facility] Comment on above: Performed By: #### 2 19193 #### [place] [address] Urobilinog NORM Normal NORMAL: NORMAL [facility] Comment on above: Performed By: #### 2 49624 #### [place] [address] WBC (Bld) [#/Vol] Negative Normal NORMAL: NEGATIVE [facility] Comment on above: Performed By: #### 2 10409 #### [place] [address] URINE CREATININE AND PROTEIN RATIOon 04-08-2020 CREATININE UR 146.3 mg/dl Normal [facility] Comment on above: Performed By: #### 2 99125 ####[facility],[address] [place] [address] PC RATIO 0.06 mg/dL Normal 0.00 - 10.00 [facility] Comment on above: Performed By: #### 2 26449 ####[place] [phone] Protein (U) [Mass/Vol] 9.00 mg/dL Normal 0.00 - 10.00 [facility] Comment on above: Performed By: #### 2 90388 ####[place] [id number] HGB A1C [CCL]on 03-18-2020 HbA1c (Bld) [Mass fraction] 117 mg/dL Normal [facility] Comment on above: Result Comment: eAG: (Estimated average glucose) is a calculated value from HgbA1c and is pharmaceutical specialty representative of the average blood glucose level in the last 2-3 month period. [facility] [address] [place] [address] Dre Gilliland III, M.D. [id number] Performed By: #### 2 08056 ####[facility],[address] [place] [address] 34803 HbA1c (Bld) [Mass fraction] 5.7 % High 4.3-5.6 [facility] Comment on above: Result Comment: [place] Diabetes Association guidelines indicate that patients with HgbA1c in the range 5.7-6.4% are at increased risk for development of diabetes, and intervention by lifestyle modification may be beneficial. HgbA1c greater or equal to 6.5% is considered diagnostic of diabetes. Performed By: #### 2 60485 ####[address] [address] Hemoglobin A1con 03-18-2020 HbA1c (Bld) [Mass fraction] 5.7 % High 4.3-5.6 [facility] Comment on above: Performed By: #### H BA1C #### [facility] Routine Lab [address] [phone] HbA1c (Bld) [Mass fraction] 117 mg/dL Normal [facility] Comment on above: Performed By: #### H BA1C #### [facility] [address] [phone] LIPID PROFILEon 03-17-2020 Cholesterol [Mass/Vol] 133 mg/dL Normal 0 - 200 [facility] Comment on above: Performed By: #### 2 73032 ####[facility],[address] [place] [address] 19235 Cholesterol in HDL [Mass/Vol] 29 mg/dL Low 40 - 60 [facility] Comment on above: Performed By: #### 2 16212 ####[address] [address] Cholesterol in LDL [Mass/Vol] 59 mg/dL Normal 0 - 129 [facility] Comment on above: Performed By: #### 2 59112 ####[address] [address] Cholesterol.total/Choles terol in HDL [Mass ratio] 4.6 {ratio} Normal 0.0 - 5.0 [facility] Comment on above: Performed By: #### 2 95413 ####[facility],[address] [place] [address] 61010 Lipid 1996 panel Normal [facility] Comment on above: Result Comment: LIPI D PROFILE Performed By: #### 2 08993 ####[facility],[address] [place] [address] 53236 Triglyceride [Mass/Vol] 224 mg/dL High 0 - 150 [facility] Comment on above: Performed By: #### 2 79181 ####[facility],[address] [place] [address] 74981 TSHon 03-17-2020 TSH Qn 0.99 uIU/ml Normal 0.34 - 5.60 [facility] Comment on above: Performed By: #### 2 16231 ####[facility],[address] [place] [address] 45257 URINE CREATININE AND PROTEIN RATIOon 03-11-2020 CREATININE UR 65.8 mg/dl Normal [facility] Comment on above: Performed By: #### 2 15791 ####[facility],[address] [place] [address] 78994 PC RATIO 0.06 mg/dL Normal 0.00 - 10.00 [facility] Comment on above: Performed By: #### 2 29335 ####[facility],[address] [place] [address] 83270 Protein (U) [Mass/Vol] mg/dL Normal 0.00 - 10.00 [facility] Comment on above: Performed By: #### 2 63913 ####[facility],[address] [place] [address] 85747 CBC + DIFFon 03-10-2020 Basophils (Bld) [#/Vol] 0.10 x10EE3/UL Normal 0. 00 - 0.10 [facility] Comment on above: Performed By: #### 2 40158 #### [facility],[address] [place] [address] Basophils/100 WBC (Bld) 1.3 % Normal 0.0 - 2.0 [facility] Comment on above: Performed By: #### 2 36286 #### [facility],[address] [place] [address] CBC + DIFF Normal [facility] Comment on above: Result Comment: CBC- COMPLETE BLOOD COUNT Performed By: #### 2 42435 #### [place] [address] Eosinophils (Bld) [#/Vol] 0.40 x10EE3/UL Normal 0.00 - 0.50 [facility] Comment on above: Performed By: #### 2 29383 #### [place] [address] Eosinophils/100 WBC (Bld) 5.7 % Normal 0.0 - 7.0 [facility] Comment on above: Performed By: #### 2 25132 #### [place] [address] Erythrocyte distribution width (RBC) [Ratio] 13.3 % Normal 12.0 - 15.6 [facility] Comment on above: Performed By: #### 2 53922 #### [facility],[address] [place] [address] Hematocrit (Bld) [Volume fraction] 40.4 % Normal 40.0 - 52.0 [facility] Comment on above: Performed By: #### 2 92809 #### [place] [address] Hemoglobin (Bld) [Mass/Vol] 13.8 g/dL Normal 13.0 - 17.5 [facility] Comment on above: Performed By: #### 2 50877 #### [facility],[address] [place] [address] 38602 Lymphocytes (Bld) [#/Vol] 1.30 x10EE3/UL Normal 0.80 - 2.80 [facility] Comment on above: Performed By: #### 2 07740 #### [facility],[address] [place] [address] 73096 Lymphocytes/100 WBC (Bld) 20.1 % Normal 20.0 - 45.0 [facility] Comment on above: Performed By: #### 2 00830 #### [facility],[address] [place] [address] 80660 MANUAL DIFF N/A Normal [facility] Comment on above: Performed By: #### 2 80385 #### [facility],[address] [place] [address] 69668 MCH (RBC) [Entitic mass] 30 pg Normal 27 - 33 [facility] Comment on above: Performed By: #### 2 32204 #### [facility],[address] [place] [address] 75061 MCHC (RBC) [Mass/Vol] 34 X10 3 Normal 32 - 36 [facility] Comment on above: Performed By: #### 2 24176 #### [facility],[address] [place] [address] 87887 MCV (RBC) [Entitic vol] 88 fL Normal 81 - 98 [facility] Comment on above: Performed By: #### 2 80735 #### [facility],[address] [place] [address] 22790 Monocytes (Bld) [#/Vol] 0.90 x10EE3/UL Normal 0. 20 - 1.00 [facility] Comment on above: Performed By: #### 2 39476 #### [facility],[address] [place] [address] 87271 MONOS % 13.7 % High 0.0 - 10.0 [facility] Comment on above: Performed By: #### 2 86721 #### [facility],[address] [place] [address] 76423 Morphology Crispin (Bld) [Interp] N/A Normal [facility] Comment on above: Performed By: #### 2 74586 #### [facility],[address] [place] [address] 71022 Neutrophils (Bld) [#/Vol] 3.80 x10EE3/UL Normal 1.50 - 7.10 [facility] Comment on above: Performed By: #### 2 40419 #### [facility],[address] [place] [address] 50323 Neutrophils/100 WBC (Bld) 59.2 % Normal 46.0 - 76.0 [facility] Comment on above: Performed By: #### 2 32627 #### [address] [address] Platelet mean volume (Bld) [Entitic vol] 7.8 fL Normal 6.4 - 10.5 [facility] Comment on above: Result Comment: AUTO MATED DIFFERENTIAL Performed By: #### 2 99597 #### [address] [address] Platelets (Bld) [#/Vol] 291 x10EE3/UL Normal 150 - 450 [facility] Comment on above: Performed By: #### 2 82504 #### [facility],[address] [place] [address] 94694 RBC (Bld) [#/Vol] 4.57 x 10EE6/UL Normal 4.50 - 6.00 [facility] Comment on above: Performed By: #### 2 74910 #### [address] [address] WBC (Bld) [#/Vol] 6.4 x 10EE3/UL Normal 4.5 - 10.8 [facility] Comment on above: Performed By: #### 2 83800 #### [facility],[address] [place] [address] 22650 LITHIUMon 03-10-2020 [place] [Moles/Vol] 0.8 mmol/L Normal 0.6 - 1.2 [facility] Comment on above: Performed By: #### 2 70603 #### [facility],[address] [place] [address] 94522 RENAL FUNCTION PANEL WITH eG FRon 03-10-2020 Age - Reported 54 years Normal [facility] Comment on above: Performed By: #### 2 02575 ####[facility],[address] [place] [address] 83160 Albumin [Mass/Vol] 3.5 g/dL Normal 3.4 - 4.8 [facility] Comment on above: Performed By: #### 2 00093 ####[facility],[address] [place] [address] 31760 B/C RATIO 8 ratio Normal 0 - 30 [facility] Comment on above: Performed By: #### 2 08344 ####[facility],[address] [place] [address] 10155 Calcium [Mass/Vol] 9.4 mg/dL Normal 8.6 - 10.2 [facility] Comment on above: Performed By: #### 2 22333 ####[facility],[address] [place] [address] 13483 Chloride [Moles/Vol] 106 mmol/L Normal 98 - 107 [facility] Comment on above: Performed By: #### 2 43482 ####[facility],[address] [place] [address] 80489 CO2 [Moles/Vol] 26.1 mmol/L Normal 21.0 - 31.0 [facility] Comment on above: Performed By: #### 2 95319 ####[facility],[address] [place] [address] 56526 Creatinine [Mass/Vol] 2.5 mg/dL High 0.7 - 1.3 [facility] Comment on above: Performed By: #### 2 63945 ####[facility],[address] [place] [address] 92223 GFR/1.73 sq M predicted among non-blacks MDRD (S/P/Bld) [Vol rate/Area] 33 ML/MINUTE Low 60 - 999 [facility] Comment on above: Result Comment: ACCO RDING TO THE NATIONAL KIDNEY DISEASE EDUCATION PROGRAM(NKDE), A NORMAL eGFR IS A VALUE GREATER THAN OR EQUAL TO 60 ML/MIN/1.73 SQ METERS. CHRONIC KIDNEY DISEASE: <60mL/MIN/1.73 SQ METERS KIDNEY FAILURE: <15mL/MIN/1.73 SQ METERS THIS TEST SHOULD ONLY BE USED FOR PATIENTS 18 YEARS OF AGE AND OLDER. Performed By: #### 2 56768 ####[facility],[address] [place] [address] 95821 GFR/1.73 sq M predicted among non-blacks MDRD (S/P/Bld) [Vol rate/Area] 27 ML/MINUTE Low 60 - 999 [facility] Comment on above: Performed By: #### 2 23391 ####[facility],[address] [place] [address] 00542 Glucose [Mass/Vol] 114 mg/dL High 74 - 106 [facility] Comment on above: Performed By: #### 2 36608 ####[facility],[address] [place] [address] 79519 Phosphate [Mass/Vol] 4.6 mg/dL Normal 2.7 - 4.9 [facility] Comment on above: Performed By: #### 2 93776 ####[facility],[address] [place] [address] 16948 Potassium [Moles/Vol] 3.9 mmol/L Normal 3.5 - 5.1 [facility] Comment on above: Performed By: #### 2 04248 ####[facility],[address] [place] [address] 15860 RENAL FUNCTION PANEL WITH eGFR Normal [facility] Comment on above: Result Comment: JESSICA L FUNCTION PANEL Performed By: #### 2 64762 ####[facility],[address] [place] [address] 23847 Sodium [Moles/Vol] 139 mmol/L Normal 136 - 145 [facility] Comment on above: Performed By: #### 2 16823 ####[facility],[address] [place] [address] Urea nitrogen [Mass/Vol] 21 mg/dL High 6 - 20 [facility] Comment on above: Performed By: #### 2 97604 ####[facility],[address] [place] [address] 42734 CBC + DIFFon 02-04-2020 Basophils (Bld) [#/Vol] 0.10 x10EE3/UL Normal 0. 00 - 0.10 [facility] Comment on above: Performed By: #### 2 82016 #### [facility],[address] [place] [address] 97439 Basophils/100 WBC (Bld) 1.3 % Normal 0.0 - 2.0 [facility] Comment on above: Performed By: #### 2 16998 #### [facility],[address] [place] [address] 78052 CBC + DIFF Normal [facility] Comment on above: Result Comment: CBC- COMPLETE BLOOD COUNT Performed By: #### 2 68881 #### [facility],[address] [place] [address] 25470 Eosinophils (Bld) [#/Vol] 0.40 x10EE3/UL Normal 0.00 - 0.50 [facility] Comment on above: Performed By: #### 2 66723 #### [facility],[address] [place] [address] 79602 Eosinophils/100 WBC (Bld) 5.6 % Normal 0.0 - 7.0 [facility] Comment on above: Performed By: #### 2 62898 #### [facility],[address] [place] [address] 80602 Erythrocyte distribution width (RBC) [Ratio] 13.2 % Normal 12.0 - 15.6 [facility] Comment on above: Performed By: #### 2 30217 #### [facility],[address] [place] [address] 18374 Hematocrit (Bld) [Volume fraction] 38.7 % Low 40.0 - 52.0 [facility] Comment on above: Performed By: #### 2 66734 #### [facility],[address] [place] [address] 34225 Hemoglobin (Bld) [Mass/Vol] 13.2 g/dL Normal 13.0 - 17.5 [facility] Comment on above: Performed By: #### 2 18958 #### [facility],[address] [place] [address] 22398 Lymphocytes (Bld) [#/Vol] 1.40 x10EE3/UL Normal 0.80 - 2.80 [facility] Comment on above: Performed By: #### 2 72986 #### [facility],[address] [place] [address] 37570 Lymphocytes/100 WBC (Bld) 18.1 % Low 20.0 - 45.0 [facility] Comment on above: Performed By: #### 2 72420 #### [facility],[address] [place] [address] 44010 MANUAL DIFF N/A Normal [facility] Comment on above: Performed By: #### 2 24927 #### [facility],[address] [place] [address] 19809 MCH (RBC) [Entitic mass] 30 pg Normal 27 - 33 [facility] Comment on above: Performed By: #### 2 72873 #### [facility],[address] [place] [address] 73511 MCHC (RBC) [Mass/Vol] 34 X10 3 Normal 32 - 36 [facility] Comment on above: Performed By: #### 2 57126 #### [facility],[address] [place] [address] 61131 MCV (RBC) [Entitic vol] 88 fL Normal 81 - 98 [facility] Comment on above: Performed By: #### 2 36855 #### [facility],[address] [place] [address] 46591 Monocytes (Bld) [#/Vol] 1.10 x10EE3/UL High 0. 20 - 1.00 [facility] Comment on above: Performed By: #### 2 65638 #### [address] [address] MONOS % 13.6 % High 0.0 - 10.0 [facility] Comment on above: Performed By: #### 2 91803 #### [address] [address] Morphology Crispin (Bld) [Interp] N/A Normal [facility] Comment on above: Performed By: #### 2 36675 #### [address] [address] Neutrophils (Bld) [#/Vol] 4.80 x10EE3/UL Normal 1.50 - 7.10 [facility] Comment on above: Performed By: #### 2 30838 #### [facility],[address] [place] [address] 64839 Neutrophils/100 WBC (Bld) 61.4 % Normal 46.0 - 76.0 [facility] Comment on above: Performed By: #### 2 35184 #### [address] [address] Platelet mean volume (Bld) [Entitic vol] 7.7 fL Normal 6.4 - 10.5 [facility] Comment on above: Result Comment: AUTO MATED DIFFERENTIAL Performed By: #### 2 14159 #### [facility],[address] [place] [address] 38947 Platelets (Bld) [#/Vol] 298 x10EE3/UL Normal 150 - 450 [facility] Comment on above: Performed By: #### 2 44468 #### [facility],[address] [place], [place] [address] RBC (Bld) [#/Vol] 4.40 x 10EE6/UL Low 4.50 - 6.00 [facility] Comment on above: Performed By: #### 2 72145 #### [facility],[address] [place] [address] 74493 WBC (Bld) [#/Vol] 7.8 x 10EE3/UL Normal 4.5 - 10.8 [facility] Comment on above: Performed By: #### 2 09384 #### [place] [id number] CULTURE URINEon 02-04-2020 CULTURE URINE CULTURE URINE _URINE CULTURE_ M I C R O B I O L O G Y R E P O R T FINAL ------- Antimicrobial Susceptibility and Organism Identification Report -------- Specimen Number : [id number] Requested : 02/04/20 Specimen Source : URINE Collected : 02/04/20 02:50 Ar[place]ondo of Isolation : MEME HUANG Received : 02/04/20 02:50 Requesting Physician : FLORECITA -- Patient/Specimen Tests and Comments Specimen Comments -------- -------- FINAL REPORT: NO GROWTH AT 48 HOURS -- Tech : Source : URINE ID # : [id number] FINAL Report Date : / / : Collected : 02/04/20 02:50 02/06/20.1209.KLS. 02/05/20.0910.JLN. 02/06/20.1209.KLS.COMPLETE Normal [facility] Comment on above: Performed By: #### 2 16807 #### [place] [address] RENAL FUNCTION PANEL WITH eG FRon 02-04-2020 Age - Reported 54 years Normal [facility] Comment on above: Performed By: #### 2 56280 #### [place] [address] Albumin [Mass/Vol] 3.5 g/dL Normal 3.4 - 4.8 [facility] Comment on above: Performed By: #### 2 67257 #### [place] [id number] B/C RATIO 9 ratio Normal 0 - 30 [facility] Comment on above: Performed By: #### 2 44254 #### [facility],[address] [place] [address] 42313 Calcium [Mass/Vol] 9.4 mg/dL Normal 8.6 - 10.2 [facility] Comment on above: Performed By: #### 2 89693 #### [facility],[address] [place] [address] Chloride [Moles/Vol] 107 mmol/L Normal 98 - 107 [facility] Comment on above: Performed By: #### 2 64843 #### [facility],[address] [place] [address] CO2 [Moles/Vol] 25.6 mmol/L Normal 21.0 - 31.0 [facility] Comment on above: Performed By: #### 2 48404 #### [facility],[address] [place], [place] [address] Creatinine [Mass/Vol] 2.4 mg/dL High 0.7 - 1.3 [facility] Comment on above: Performed By: #### 2 96208 #### [facility],[address] [place] [address] 77747 GFR/1.73 sq M predicted among non-blacks MDRD (S/P/Bld) [Vol rate/Area] 28 ML/MINUTE Low 60 - 999 [facility] Comment on above: Performed By: #### 2 44072 #### [facility],[address] [place] [address] 14579 GFR/1.73 sq M predicted among non-blacks MDRD (S/P/Bld) [Vol rate/Area] 34 ML/MINUTE Low 60 - 999 [facility] Comment on above: Result Comment: ACCO RDING TO THE NATIONAL KIDNEY DISEASE EDUCATION PROGRAM(NKDE), A NORMAL eGFR IS A VALUE GREATER THAN OR EQUAL TO 60 ML/MIN/1.73 SQ METERS. CHRONIC KIDNEY DISEASE: <60mL/MIN/1.73 SQ METERS KIDNEY FAILURE: <15mL/MIN/1.73 SQ METERS THIS TEST SHOULD ONLY BE USED FOR PATIENTS 18 YEARS OF AGE AND OLDER. Performed By: #### 2 40999 #### [facility],[address] [place] [address] 66643 Glucose [Mass/Vol] 114 mg/dL High 74 - 106 [facility] Comment on above: Performed By: #### 2 84394 #### [facility],[address] [place] [address] 63864 Phosphate [Mass/Vol] 4.5 mg/dL Normal 2.7 - 4.9 [facility] Comment on above: Performed By: #### 2 26280 #### [facility],[address] [place] [address] 29804 Potassium [Moles/Vol] 3.8 mmol/L Normal 3.5 - 5.1 [facility] Comment on above: Performed By: #### 2 34264 #### [facility],[address] [place], [place] [address] RENAL FUNCTION PANEL WITH eGFR Normal [facility] Comment on above: Result Comment: JESSICA L FUNCTION PANEL Performed By: #### 2 31457 #### [facility],[address] [place] [address] 55010 Sodium [Moles/Vol] 139 mmol/L Normal 136 - 145 [facility] Comment on above: Performed By: #### 2 50535 #### [facility],[address] [place] [address] 75645 Urea nitrogen [Mass/Vol] 22 mg/dL High 6 - 20 [facility] Comment on above: Performed By: #### 2 37296 #### [facility],[address] [place] [address] 88067 URINALYSISon 02-04-2020 Amorphous NONE Normal [facility] Comment on above: Performed By: #### 2 48691 #### [facility],[address] [place] [address] 53784 Bacteria LM.HPF (Urine sed) [#/Area] NONE Normal [facility] Comment on above: Performed By: #### 2 36292 #### [facility],[address] [place] [address] 16269 Bilirubin [Mass/Vol] Negative Normal NORMAL: NEGATIVE [facility] Comment on above: Performed By: #### 2 88804 #### [facility],[address] [place] [address] 90607 Blood Negative Normal NORMAL: NEGATIVE [facility] Comment on above: Performed By: #### 2 94879 #### [facility],[address] [place] [address] 76779 Casts LM.LPF (Urine sed) [#/Area] NONE Normal [facility] Comment on above: Performed By: #### 2 55479 #### [facility],[address] [place], [place] [address] Clarity (U) clear Normal NORMAL: CLEAR [facility] Comment on above: Performed By: #### 2 96398 #### [facility],[address] [place] [address] 42203 Color (U) yellow Normal NORMAL: YELLOW [facility] Comment on above: Performed By: #### 2 32513 #### [facility],[address] [place] [address] 88675 Crystals LM Nom (Urine sed) NONE Normal [facility] Comment on above: Performed By: #### 2 94712 #### [facility],[address] [place] [address] 97319 Epi Cells NONE Normal [facility] Comment on above: Performed By: #### 2 49799 #### [facility],[address] [place] [address] 54618 Glucose [Mass/Vol] NORM Normal NORMAL: NORMAL [facility] Comment on above: Performed By: #### 2 65111 #### [facility],[address] [place], [place] [address] Ketone Negative Normal NORMAL: NEGATIVE [facility] Comment on above: Performed By: #### 2 35886 #### [facility],[address] [place], [place] [address] Microscopic SEE BELOW Normal [facility] Comment on above: Result Comment: MICR OSCOPIC Performed By: #### 2 83815 #### [facility],[address] [place] [address] Mucous NONE Normal [facility] Comment on above: Performed By: #### 2 79341 #### [facility],[address] [place] [address] Nitrite Ql (U) Negative Normal NORMAL: NEGATIVE [facility] Comment on above: Performed By: #### 2 99428 #### [facility],[address] [place] [address] pH (Bld) 6 Normal NORMAL: 5.0-8.0 [facility] Comment on above: Performed By: #### 2 76107 #### [facility],[address] [place] [address] Protein (U) [Mass/Vol] Negative Normal JENN L: NEGATIVE [facility] Comment on above: Performed By: #### 2 11331 #### [facility],[address] [place] [address] Rbc NONE Normal 0-3/hpf [facility] Comment on above: Performed By: #### 2 84447 #### [facility],[address] [place], [place] [address] Sp [place] 1.015 Normal NORMAL: 1.010-1.03 0 [facility] Comment on above: Performed By: #### 2 67199 #### [facility],[address] [place] [address] Specimen type Nom (Spec) Clean catch Normal [facility] Comment on above: Performed By: #### 2 12523 #### [facility],[address] [place] [address] Urobilinog NORM Normal NORMAL: NORMAL [facility] Comment on above: Performed By: #### 2 56836 #### [facility],[address] [place] [address] 82350 Wbc 1-5 Normal 0-5/hpf [facility] Comment on above: Performed By: #### 2 82576 #### [facility],[address] [place] [address] WBC (Bld) [#/Vol] 25 Abnormal NORMAL: NEGATIVE [facility] Comment on above: Performed By: #### 2 30936 #### [facility],[address] [place] [address] Yeast LM Ql (Urine sed) NONE Normal [facility] Comment on above: Performed By: #### 2 54194 #### [facility],[address] [place] [address] URINE CREATININE AND PROTEIN RATIOon 02-04-2020 CREATININE UR 143.6 mg/dl Normal [facility] Comment on above: Performed By: #### 2 07984 #### [facility],[address] [place], [place] [address] PC RATIO 0.05 mg/dL Normal 0.00 - 10.00 [facility] Comment on above: Performed By: #### 2 19992 #### [facility],[address] [place], [place] [address] Protein (U) [Mass/Vol] 7.00 mg/dL Normal 0.00 - 10.00 [facility] Comment on above: Performed By: #### 2 26984 #### [facility],[address] [place] [address] 34403 ALBUMIN PLASMAon 01-07-2020 Albumin [Mass/Vol] 3.7 g/dL Normal 3.4 - 4.8 [facility] Comment on above: Performed By: #### 2 01551 #### [facility],[address] [place] [address] 95385 BMP with eGFRon 01-07-2020 Age - Reported 54 years Normal [facility] Comment on above: Performed By: #### 2 58592 #### [facility],[address] [place] [address] 90814 Anion gap [Moles/Vol] 13 mmol/L Normal 10 - 20 [facility] Comment on above: Performed By: #### 2 15701 #### [facility],[address] [place] [address] 59146 Calcium [Mass/Vol] 9.3 mg/dL Normal 8.6 - 10.2 [facility] Comment on above: Performed By: #### 2 69414 #### [facility],[address] [place] [address] 10509 Chloride [Moles/Vol] 108 mmol/L High 98 - 107 [facility] Comment on above: Performed By: #### 2 82058 #### [facility],[address] [place] [address] 77811 CO2 [Moles/Vol] 26.1 mmol/L Normal 21.0 - 31.0 [facility] Comment on above: Performed By: #### 2 55908 #### [facility],[address] [place] [address] 80933 Creatinine [Mass/Vol] 2.0 mg/dL High 0.7 - 1.3 [facility] Comment on above: Performed By: #### 2 71320 #### [facility],[address] [place] [address] 75495 GFR/1.73 sq M predicted among non-blacks MDRD (S/P/Bld) [Vol rate/Area] Normal [facility] Comment on above: Result Comment: BASI C METABOLIC PANEL Performed By: #### 2 23878 #### [facility],[address] [place] [address] 88015 GFR/1.73 sq M predicted among non-blacks MDRD (S/P/Bld) [Vol rate/Area] 42 ML/MINUTE Low 60 - 999 [facility] Comment on above: Result Comment: ACCO RDING TO THE NATIONAL KIDNEY DISEASE EDUCATION PROGRAM(NKDE), A NORMAL eGFR IS A VALUE GREATER THAN OR EQUAL TO 60 ML/MIN/1.73 SQ METERS. CHRONIC KIDNEY DISEASE: <60mL/MIN/1.73 SQ METERS KIDNEY FAILURE: <15mL/MIN/1.73 SQ METERS THIS TEST SHOULD ONLY BE USED FOR PATIENTS 18 YEARS OF AGE AND OLDER. Performed By: #### 2 47427 #### [address] [address] GFR/1.73 sq M predicted among non-blacks MDRD (S/P/Bld) [Vol rate/Area] 35 ML/MINUTE Low 60 - 999 [facility] Comment on above: Performed By: #### 2 79722 #### [address] [address] Glucose [Mass/Vol] 99 mg/dL Normal 74 - 106 [facility] Comment on above: Performed By: #### 2 48448 #### [address] [address] Potassium [Moles/Vol] 3.8 mmol/L Normal 3.5 - 5.1 [facility] Comment on above: Performed By: #### 2 21441 #### [address] [address] Sodium [Moles/Vol] 143 mmol/L Normal 136 - 145 [facility] Comment on above: Performed By: #### 2 56688 #### [address] [address] Urea nitrogen [Mass/Vol] 22 mg/dL High 6 - 20 [facility] Comment on above: Performed By: #### 2 00621 #### [address] [address] CBC + DIFFon 02-24-2020 Basophils (Bld) [#/Vol] 0.10 x10EE3/UL Normal 0. 00 - 0.10 [facility] Comment on above: Performed By: #### 2 54265 #### [facility],[address] [place] [address] 44511 Basophils/100 WBC (Bld) 1.0 % Normal 0.0 - 2.0 [facility] Comment on above: Performed By: #### 2 74321 #### [facility],[address] [place], [place] [address] CBC + DIFF Normal [facility] Comment on above: Result Comment: CBC- COMPLETE BLOOD COUNT Performed By: #### 2 89871 #### [facility],[address] [place] [address] 91468 Eosinophils (Bld) [#/Vol] 0.30 x10EE3/UL Normal 0.00 - 0.50 [facility] Comment on above: Performed By: #### 2 68898 #### [facility],[address] [place] [address] 53498 Eosinophils/100 WBC (Bld) 3.3 % Normal 0.0 - 7.0 [facility] Comment on above: Performed By: #### 2 24779 #### [facility],[address] [place] [address] 98214 Erythrocyte distribution width (RBC) [Ratio] 13.1 % Normal 12.0 - 15.6 [facility] Comment on above: Performed By: #### 2 07673 #### [facility],[address] [place] [address] 70426 Hematocrit (Bld) [Volume fraction] 39.0 % Low 40.0 - 52.0 [facility] Comment on above: Performed By: #### 2 54967 #### [facility],[address] [place] [address] 87329 Hemoglobin (Bld) [Mass/Vol] 13.4 g/dL Normal 13.0 - 17.5 [facility] Comment on above: Performed By: #### 2 41754 #### [facility],[address] [place], [place] [address] Lymphocytes (Bld) [#/Vol] 1.90 x10EE3/UL Normal 0.80 - 2.80 [facility] Comment on above: Performed By: #### 2 54753 #### [facility],[address] [place] [address] Lymphocytes/100 WBC (Bld) 20.6 % Normal 20.0 - 45.0 [facility] Comment on above: Performed By: #### 2 27895 #### [facility],[address] [place], [place] [address] MANUAL DIFF N/A Normal [facility] Comment on above: Performed By: #### 2 59620 #### [facility],[address] [place], [place] [address] MCH (RBC) [Entitic mass] 30 pg Normal 27 - 33 [facility] Comment on above: Performed By: #### 2 03765 #### [facility],[address] [place], [place] [address] MCHC (RBC) [Mass/Vol] 34 X10 3 Normal 32 - 36 [facility] Comment on above: Performed By: #### 2 63047 #### [facility],[address] [place] [address] 31187 MCV (RBC) [Entitic vol] 88 fL Normal 81 - 98 [facility] Comment on above: Performed By: #### 2 37959 #### [address] [address] Monocytes (Bld) [#/Vol] 0.90 x10EE3/UL Normal 0. 20 - 1.00 [facility] Comment on above: Performed By: #### 2 29635 #### [place] [address],[place] [address] MONOS % 10.0 % Normal 0.0 - 10.0 [facility] Comment on above: Performed By: #### 2 08678 #### [facility],[address] [place] [address] 51560 Morphology Crispin (Bld) [Interp] N/A Normal [facility] Comment on above: Performed By: #### 2 07036 #### [facility],[address] [place] [address] 55092 Neutrophils (Bld) [#/Vol] 5.90 x10EE3/UL Normal 1.50 - 7.10 [facility] Comment on above: Performed By: #### 2 84839 #### [address] [address] Neutrophils/100 WBC (Bld) 65.1 % Normal 46.0 - 76.0 [facility] Comment on above: Performed By: #### 2 41471 #### [address] [address] Platelet mean volume (Bld) [Entitic vol] 7.7 fL Normal 6.4 - 10.5 [facility] Comment on above: Result Comment: AUTO MATED DIFFERENTIAL Performed By: #### 2 28473 #### [address] [address] Platelets (Bld) [#/Vol] 260 x10EE3/UL Normal 150 - 450 [facility] Comment on above: Performed By: #### 2 06122 #### [address] [address] RBC (Bld) [#/Vol] 4.41 x 10EE6/UL Low 4.50 - 6.00 [facility] Comment on above: Performed By: #### 2 08690 #### [facility],[address] [place] [address] 96282 WBC (Bld) [#/Vol] 9.1 x 10EE3/UL Normal 4.5 - 10.8 Gerald [facility] Comment on above: Performed By: #### 2 37831 #### Johan [facility],[address] [place] [address] CULTURE URINEon 01-07-2020 CULTURE URINE CULTURE URINE _URINE CULTURE_ M I C R O B I O L O G Y R E P O R T FINAL ------- Antimicrobial Susceptibility and Organism Identification Report -------- Specimen Number : [id number] Requested : 01/07/20 Specimen Source : CLEAN CATCH URINE Collected : 01/07/20 02:30 Arredondo of Isolation : MEME HUANG Received : 01/07/20 02:30 Requesting Physician : FLORECITA -- Patient/Specimen Tests and Comments Specimen Comments -------- -------- FINAL REPORT: NO GROWTH AT 48 HOURS -- Tech : Source : CLEAN CATCH URINE ID # : [id number] FINAL Report Date : / / : Collected : 01/07/20 02:30 01/09/20.1027.BKO. 01/08/20.1302.KLS. 01/09/20.1027.BKO.COMPLETE 01/09/20.1027.BKO.to [facility] via fax Normal [facility] Comment on above: Performed By: #### 2 42883 #### [facility],[address] [place] [address] LITHIUMon 01-07-2020 [place] [Moles/Vol] 0.6 mmol/L Normal 0.6 - 1.2 [facility] Comment on above: Performed By: #### 2 50471 #### [facility],[address] [place], [place] [address] URINALYSISon 01-07-2020 Bilirubin [Mass/Vol] Negative Normal NORMAL: NEGATIVE [facility] Comment on above: Performed By: #### 2 67331 #### [facility],[address] [place] [address] Blood Negative Normal NORMAL: NEGATIVE [facility] Comment on above: Performed By: #### 2 10547 #### [facility],[address] [place], [place] [address] Clarity (U) clear Normal NORMAL: CLEAR [facility] Comment on above: Performed By: #### 2 01945 #### [facility],[address] [place], [place] [address] Color (U) p.yel Normal NORMAL: YELLOW [facility] Comment on above: Performed By: #### 2 10894 #### [facility],[address] [place] [address] 39185 Glucose [Mass/Vol] NORM Normal NORMAL: NORMAL [facility] Comment on above: Performed By: #### 2 85806 #### [facility],[address] [place] [address] 11282 Ketone Negative Normal NORMAL: NEGATIVE [facility] Comment on above: Performed By: #### 2 08546 #### [facility],[address] [place] [address] Microscopic NOT INDICATED Normal [facility] Comment on above: Performed By: #### 2 98355 #### [facility],[address] [place] [address] 42169 Nitrite Ql (U) Negative Normal NORMAL: NEGATIVE [facility] Comment on above: Performed By: #### 2 05196 #### [facility],[address] [place] [address] 26259 pH (Bld) 6.5 Normal NORMAL: 5.0-8.0 [facility] Comment on above: Performed By: #### 2 56982 #### [facility],[address] [place] [address] 77059 Protein (U) [Mass/Vol] Negative Normal JENN L: NEGATIVE [facility] Comment on above: Performed By: #### 2 89731 #### [facility],[address] [place] [address] 38040 Sp [place] 1.010 Normal NORMAL: 1.010-1.03 0 [facility] Comment on above: Performed By: #### 2 13854 #### [facility],[address] [place] [address] 39030 Specimen type Nom (Spec) Clean catch Normal [facility] Comment on above: Performed By: #### 2 51544 #### [facility],[address] [place] [address] 08726 Urobilinog NORM Normal NORMAL: NORMAL [facility] Comment on above: Performed By: #### 2 72843 #### [facility],[address] [place] [address] 53917 WBC (Bld) [#/Vol] Negative Normal NORMAL: NEGATIVE [facility] Comment on above: Performed By: #### 2 45024 #### [facility],[address] [place] [address] 25188 URINE CREATININE AND PROTEIN RATIOon 01-07-2020 CREATININE UR 75.6 mg/dl Normal [facility] Comment on above: Performed By: #### 2 61799 #### [facility],[address] [place] [address] 03867 PC RATIO 0.07 mg/dL Normal 0.00 - 10.00 [facility] Comment on above: Performed By: #### 2 23418 #### [facility],[address] [place] [address] 54533 Protein (U) [Mass/Vol] mg/dL Normal 0.00 - 10.00 [facility] Comment on above: Performed By: #### 2 06599 #### [facility],[address] [place] [address] 75372 CBC + DIFFon 12-10-2019 Basophils (Bld) [#/Vol] 0.10 x10EE3/UL Normal 0. 00 - 0.10 [facility] Comment on above: Performed By: #### 2 83796 #### [facility],[address] [place] [address] 25329 Basophils/100 WBC (Bld) 0.7 % Normal 0.0 - 2.0 [facility] Comment on above: Performed By: #### 2 68865 #### [facility],[address] [place] [address] 38762 CBC + DIFF Normal [facility] Comment on above: Result Comment: CBC- COMPLETE BLOOD COUNT Performed By: #### 2 61046 #### [facility],[address] [place] [address] 33718 Eosinophils (Bld) [#/Vol] 0.30 x10EE3/UL Normal 0.00 - 0.50 [facility] Comment on above: Performed By: #### 2 74394 #### [facility],[address] [place], [place] [address] Eosinophils/100 WBC (Bld) 3.2 % Normal 0.0 - 7.0 [facility] Comment on above: Performed By: #### 2 13041 #### [facility],[address] [place], [place] [address] Erythrocyte distribution width (RBC) [Ratio] 12.7 % Normal 12.0 - 15.6 [facility] Comment on above: Performed By: #### 2 86829 #### [facility],[address] [place], [place] [address] Hematocrit (Bld) [Volume fraction] 38.7 % Low 40.0 - 52.0 [facility] Comment on above: Performed By: #### 2 48268 #### [facility],[address] [place] [address] 44843 Hemoglobin (Bld) [Mass/Vol] 13.4 g/dL Normal 13.0 - 17.5 [facility] Comment on above: Performed By: #### 2 60175 #### [facility],[address] [place] [address] 10551 Lymphocytes (Bld) [#/Vol] 2.10 x10EE3/UL Normal 0.80 - 2.80 [facility] Comment on above: Performed By: #### 2 81655 #### [facility],[address] [place] [address] 96121 Lymphocytes/100 WBC (Bld) 21.3 % Normal 20.0 - 45.0 [facility] Comment on above: Performed By: #### 2 37670 #### [facility],[address] [place] [address] 57839 MANUAL DIFF N/A Normal [facility] Comment on above: Performed By: #### 2 89416 #### [facility],[address] [place] [address] 93363 MCH (RBC) [Entitic mass] 31 pg Normal 27 - 33 [facility] Comment on above: Performed By: #### 2 16259 #### [facility],[address] [place] [address] 42315 MCHC (RBC) [Mass/Vol] 35 X10 3 Normal 32 - 36 [facility] Comment on above: Performed By: #### 2 96037 #### [facility],[address] [place] [address] 28872 MCV (RBC) [Entitic vol] 89 fL Normal 81 - 98 [facility] Comment on above: Performed By: #### 2 33620 #### [facility],[address] [place] [address] 28929 Monocytes (Bld) [#/Vol] 1.00 x10EE3/UL Normal 0. 20 - 1.00 [facility] Comment on above: Performed By: #### 2 15993 #### [facility],[address] [place] [address] 71818 MONOS % 10.5 % High 0.0 - 10.0 [facility] Comment on above: Performed By: #### 2 72437 #### [facility],[address] [place] [address] 31024 Morphology Crispin (Bld) [Interp] N/A Normal [facility] Comment on above: Performed By: #### 2 18722 #### [facility],[address] [place] [address] 96624 Neutrophils (Bld) [#/Vol] 6.30 x10EE3/UL Normal 1.50 - 7.10 [facility] Comment on above: Performed By: #### 2 40479 #### [facility],[address] [place] [address] 00299 Neutrophils/100 WBC (Bld) 64.3 % Normal 46.0 - 76.0 [facility] Comment on above: Performed By: #### 2 40826 #### [facility],[address] [place] [address] 67202 Platelet mean volume (Bld) [Entitic vol] 7.4 fL Normal 6.4 - 10.5 [facility] Comment on above: Result Comment: AUTO MATED DIFFERENTIAL Performed By: #### 2 20789 #### [facility],[address] [place] [address] 16379 Platelets (Bld) [#/Vol] 254 x10EE3/UL Normal 150 - 450 [facility] Comment on above: Performed By: #### 2 16748 #### [facility],[address] [place] [address] 07759 RBC (Bld) [#/Vol] 4.34 x 10EE6/UL Low 4.50 - 6.00 [facility] Comment on above: Performed By: #### 2 60217 #### [facility],[address] [place] [address] 17009 WBC (Bld) [#/Vol] 9.8 x 10EE3/UL Normal 4.5 - 10.8 [facility] Comment on above: Performed By: #### 2 13392 #### [facility],[address] [place] [address] 55976 CULTURE URINEon 12-10-2019 CULTURE URINE CULTURE URINE _URINE CULTURE_ M I C R O B I O L O G Y R E P O R T FINAL ------- Antimicrobial Susceptibility and Organism Identification Report -------- Specimen Number : [id number] Requested : 12/09/19 Specimen Source : CLEAN CATCH URINE Collected : 12/09/19 23:45 Ar[place]ondo of Isolation : MEME HUANG Received : 12/09/19 23:45 Requesting Physician : FLORECITA -- Patient/Specimen Tests and Comments Specimen Comments -------- -------- FINAL REPORT: NO GROWTH AT 48 HOURS -- Tech : Source : CLEAN CATCH URINE ID # : [id number] FINAL Report Date : / / : Collected : 12/09/19 23:45 12/12/19.0642.BKO. 12/11/19.0838.BKO. 12/12/19.42.BKO.COMPLETE 12/12/19.BKO.to [facility] via fax Normal [facility] Comment on above: Performed By: #### 2 99709 #### [facility],[address] [place] [address] 08354 LITHIUMon 12-10-2019 [place] [Moles/Vol] 0.6 mmol/L Normal 0.6 - 1.2 [facility] Comment on above: Performed By: #### 2 78142 #### [facility],[address] [place] [address] 86554 RENAL FUNCTION PANEL WITH eG FRon 12-10-2019 Age - Reported 54 years Normal [facility] Comment on above: Performed By: #### 2 98080 #### [facility],[address] [place] [address] 23143 Albumin [Mass/Vol] 3.6 g/dL Normal 3.4 - 4.8 [facility] Comment on above: Performed By: #### 2 59217 #### [facility],[address] [place] [address] 05985 B/C RATIO 12 ratio Normal 0 - 30 [facility] Comment on above: Performed By: #### 2 26757 #### [facility],[address] [place] [address] 18559 Calcium [Mass/Vol] 9.4 mg/dL Normal 8.6 - 10.2 [facility] Comment on above: Performed By: #### 2 18394 #### [facility],[address] [place] [address] 96048 Chloride [Moles/Vol] 105 mmol/L Normal 98 - 107 [facility] Comment on above: Performed By: #### 2 08660 #### [facility],[address] [place] [address] 94982 CO2 [Moles/Vol] 24.4 mmol/L Normal 21.0 - 31.0 [facility] Comment on above: Performed By: #### 2 09411 #### [facility],[address] [place] [address] 98076 Creatinine [Mass/Vol] 1.9 mg/dL High 0.7 - 1.3 [facility] Comment on above: Performed By: #### 2 47834 #### [facility],[address] [place] [address] 61743 GFR/1.73 sq M predicted among non-blacks MDRD (S/P/Bld) [Vol rate/Area] 37 ML/MINUTE Low 60 - 999 [facility] Comment on above: Performed By: #### 2 67731 #### [facility],[address] [place] [address] 42552 GFR/1.73 sq M predicted among non-blacks MDRD (S/P/Bld) [Vol rate/Area] 45 ML/MINUTE Low 60 - 999 [facility] Comment on above: Result Comment: ACCO RDING TO THE NATIONAL KIDNEY DISEASE EDUCATION PROGRAM(NKDE), A NORMAL eGFR IS A VALUE GREATER THAN OR EQUAL TO 60 ML/MIN/1.73 SQ METERS. CHRONIC KIDNEY DISEASE: <60mL/MIN/1.73 SQ METERS KIDNEY FAILURE: <15mL/MIN/1.73 SQ METERS THIS TEST SHOULD ONLY BE USED FOR PATIENTS 18 YEARS OF AGE AND OLDER. Performed By: #### 2 24099 #### [facility],[address] [place] [address] 45762 Glucose [Mass/Vol] 106 mg/dL Normal 74 - 106 [facility] Comment on above: Performed By: #### 2 81656 #### [facility],[address] [place] [address] 17448 Phosphate [Mass/Vol] 5.0 mg/dL High 2.7 - 4.9 [facility] Comment on above: Performed By: #### 2 85338 #### [address] [address] Potassium [Moles/Vol] 3.4 mmol/L Low 3.5 - 5.1 [facility] Comment on above: Performed By: #### 2 89367 #### [facility],[address] [place] [address] RENAL FUNCTION PANEL WITH eGFR Normal [facility] Comment on above: Result Comment: JESSICA L FUNCTION PANEL Performed By: #### 2 12692 #### [facility],[address] [place] [address] Sodium [Moles/Vol] 139 mmol/L Normal 136 - 145 [facility] Comment on above: Performed By: #### 2 95843 #### [facility],[address] [place] [address] Urea nitrogen [Mass/Vol] 23 mg/dL High 6 - 20 [facility] Comment on above: Performed By: #### 2 50403 #### [facility],[address] [place] [address] URINALYSISon 12-10-2019 Bilirubin [Mass/Vol] Negative Normal NORMAL: NEGATIVE [facility] Comment on above: Performed By: #### 2 56368 #### [facility],[address] [place] [address] 49019 Blood Negative Normal NORMAL: NEGATIVE [facility] Comment on above: Performed By: #### 2 56776 #### [facility],[address] [place], [place] [address] Clarity (U) clear Normal NORMAL: CLEAR [facility] Comment on above: Performed By: #### 2 36852 #### [facility],[address] [place] [address] 26379 Color (U) p.yel Normal NORMAL: YELLOW [facility] Comment on above: Performed By: #### 2 25801 #### [facility],[address] [place] [address] 44929 Glucose [Mass/Vol] NORM Normal NORMAL: NORMAL [facility] Comment on above: Performed By: #### 2 97441 #### [facility],[address] [place] [address] Ketone Negative Normal NORMAL: NEGATIVE [facility] Comment on above: Performed By: #### 2 15243 #### [facility],[address] [place] [address] Microscopic NOT INDICATED Normal [facility] Comment on above: Performed By: #### 2 61879 #### [facility],[address] [place] [place] [address] Nitrite Ql (U) Negative Normal NORMAL: NEGATIVE [facility] Comment on above: Performed By: #### 2 65828 #### [facility],[address] [place] [address] pH (Bld) 6 Normal NORMAL: 5.0-8.0 [facility] Comment on above: Performed By: #### 2 20774 #### [facility],[address] [place] [address] Protein (U) [Mass/Vol] Negative Normal JENN L: NEGATIVE [facility] Comment on above: Performed By: #### 2 08907 #### [facility],[address] [place] [address] Sp [place] 1.015 Normal NORMAL: 1.010-1.03 0 [facility] Comment on above: Performed By: #### 2 48630 #### [facility],[address] [place] [address] Specimen type Nom (Spec) Clean catch Normal [facility] Comment on above: Performed By: #### 2 80895 #### [facility],[address] [place] [address] Urobilinog NORM Normal NORMAL: NORMAL [facility] Comment on above: Performed By: #### 2 14799 #### [facility],[address] [place] [address] 54607 WBC (Bld) [#/Vol] Negative Normal NORMAL: NEGATIVE [facility] Comment on above: Performed By: #### 2 83245 #### [facility],[address] [place] [address] 37843 URINE CREATININE AND PROTEIN RATIOon 12-10-2019 CREATININE UR 97.1 mg/dl Normal [facility] Comment on above: Performed By: #### 2 73187 #### [facility],[address] [place] [address] 55843 PC RATIO 0.07 mg/dL Normal 0.00 - 10.00 [facility] Comment on above: Performed By: #### 2 62833 #### [facility],[address] [place] [address] 04510 Protein (U) [Mass/Vol] 7.00 mg/dL Normal 0.00 - 10.00 [facility] Comment on above: Performed By: #### 2 43453 #### [facility],[address] [place] [address] 02698 BMP with eGFRon 11-05-2019 Age - Reported 54 years Normal [facility] Comment on above: Performed By: #### 2 46808 #### [facility],[address] [place] [address] 65596 Anion gap [Moles/Vol] 12 mmol/L Normal 10 - 20 [facility] Comment on above: Performed By: #### 2 75360 #### [facility],[address] [place] [address] 09479 Chloride [Moles/Vol] 105 mmol/L Normal 98 - 107 [facility] Comment on above: Performed By: #### 2 69964 #### [facility],[address] [place] [address] 02132 CO2 [Moles/Vol] 26.8 mmol/L Normal 21.0 - 31.0 [facility] Comment on above: Performed By: #### 2 74198 #### [facility],[address] [place] [address] 58535 GFR/1.73 sq M predicted among non-blacks MDRD (S/P/Bld) [Vol rate/Area] 38 ML/MINUTE Low 60 - 999 [facility] Comment on above: Result Comment: ACCO RDING TO THE NATIONAL KIDNEY DISEASE EDUCATION PROGRAM(NKDE), A NORMAL eGFR IS A VALUE GREATER THAN OR EQUAL TO 60 ML/MIN/1.73 SQ METERS. CHRONIC KIDNEY DISEASE: <60mL/MIN/1.73 SQ METERS KIDNEY FAILURE: <15mL/MIN/1.73 SQ METERS THIS TEST SHOULD ONLY BE USED FOR PATIENTS 18 YEARS OF AGE AND OLDER. Performed By: #### 2 86373 #### [facility],[address] [place] [address] 41420 GFR/1.73 sq M predicted among non-blacks MDRD (S/P/Bld) [Vol rate/Area] 31 ML/MINUTE Low 60 - 999 [facility] Comment on above: Performed By: #### 2 16698 #### [facility],[address] [place] [address] 79728 GFR/1.73 sq M predicted among non-blacks MDRD (S/P/Bld) [Vol rate/Area] Normal [facility] Comment on above: Result Comment: BASI C METABOLIC PANEL Performed By: #### 2 13246 #### [facility],[address] [place] [address] 95264 Potassium [Moles/Vol] 3.4 mmol/L Low 3.5 - 5.1 [facility] Comment on above: Performed By: #### 2 55289 #### [facility],[address] [place] [address] 26902 Sodium [Moles/Vol] 140 mmol/L Normal 136 - 145 [facility] Comment on above: Performed By: #### 2 96935 #### [address] [address] CBC + DIFFon 11-05-2019 Basophils (Bld) [#/Vol] 0.10 x10EE3/UL Normal 0. 00 - 0.10 [facility] Comment on above: Performed By: #### 2 96970 #### [facility],[address] [place] [address] 01600 Basophils/100 WBC (Bld) 0.9 % Normal 0.0 - 2.0 [facility] Comment on above: Performed By: #### 2 63216 #### [facility],[address] [place] [address] 00229 CBC + DIFF Normal [facility] Comment on above: Result Comment: CBC- COMPLETE BLOOD COUNT Performed By: #### 2 24907 #### [facility],[address] [place] [address] 20607 Eosinophils (Bld) [#/Vol] 0.40 x10EE3/UL Normal 0.00 - 0.50 [facility] Comment on above: Performed By: #### 2 89826 #### [facility],[address] [place] [address] 57543 Eosinophils/100 WBC (Bld) 3.9 % Normal 0.0 - 7.0 [facility] Comment on above: Performed By: #### 2 06609 #### [facility],[address] [place] [address] 26109 Erythrocyte distribution width (RBC) [Ratio] 12.4 % Normal 12.0 - 15.6 [facility] Comment on above: Performed By: #### 2 92350 #### [facility],[address] [place] [address] 36373 Hematocrit (Bld) [Volume fraction] 39.9 % Low 40.0 - 52.0 [facility] Comment on above: Performed By: #### 2 86204 #### [facility],[address] [place] [address] 02580 Hemoglobin (Bld) [Mass/Vol] 13.3 g/dL Normal 13.0 - 17.5 [facility] Comment on above: Performed By: #### 2 68918 #### [facility],[address] [place] [address] 28068 Lymphocytes (Bld) [#/Vol] 1.90 x10EE3/UL Normal 0.80 - 2.80 [facility] Comment on above: Performed By: #### 2 97581 #### [facility],[address] [place], [place] [address] Lymphocytes/100 WBC (Bld) 20.3 % Normal 20.0 - 45.0 [facility] Comment on above: Performed By: #### 2 88690 #### [facility],[address] [place] [address] MANUAL DIFF N/A Normal [facility] Comment on above: Performed By: #### 2 64378 #### [facility],[address] [place], [place] [address] MCH (RBC) [Entitic mass] 30 pg Normal 27 - 33 [facility] Comment on above: Performed By: #### 2 54825 #### [address] [address] MCHC (RBC) [Mass/Vol] 33 X10 3 Normal 32 - 36 [facility] Comment on above: Performed By: #### 2 10377 #### [facility],[address] [place], [place] [address] MCV (RBC) [Entitic vol] 91 fL Normal 81 - 98 [facility] Comment on above: Performed By: #### 2 74696 #### [address] [address] Monocytes (Bld) [#/Vol] 1.00 x10EE3/UL Normal 0. 20 - 1.00 [facility] Comment on above: Performed By: #### 2 33847 #### [facility],[address] [place] [address] 20327 MONOS % 10.5 % High 0.0 - 10.0 [facility] Comment on above: Performed By: #### 2 42746 #### [facility],[address] [place] [address] 47022 Morphology Crispin (Bld) [Interp] N/A Normal [facility] Comment on above: Performed By: #### 2 85910 #### [facility],[address] [place] [address] 24411 Neutrophils (Bld) [#/Vol] 6.10 x10EE3/UL Normal 1.50 - 7.10 [facility] Comment on above: Performed By: #### 2 34388 #### [address] [address] Neutrophils/100 WBC (Bld) 64.4 % Normal 46.0 - 76.0 [facility] Comment on above: Performed By: #### 2 53732 #### [facility],[address] [place] [address] 39851 Platelet mean volume (Bld) [Entitic vol] 7.4 fL Normal 6.4 - 10.5 [facility] Comment on above: Result Comment: AUTO MATED DIFFERENTIAL Performed By: #### 2 17578 #### [address] [address] Platelets (Bld) [#/Vol] 260 x10EE3/UL Normal 150 - 450 [facility] Comment on above: Performed By: #### 2 01889 #### [address] [address] RBC (Bld) [#/Vol] 4.38 x 10EE6/UL Low 4.50 - 6.00 [facility] Comment on above: Performed By: #### 2 27783 #### [address] [address] WBC (Bld) [#/Vol] 9.4 x 10EE3/UL Normal 4.5 - 10.8 [facility] Comment on above: Performed By: #### 2 58177 #### [facility],[address] [place] [address] 86057 LITHIUMon 11-05-2019 [place] [Moles/Vol] 0.5 mmol/L Low 0.6 - 1.2 [facility] Comment on above: Performed By: #### 2 68541 #### [facility],[address] [place] [address] 25241 RENAL FUNCTION PANELon 11-05 Albumin [Mass/Vol] 3.5 g/dL Normal 3.4 - 4.8 [facility] Comment on above: Performed By: #### 2 64818 #### [facility],[address] [place] [address] 80333 B/C RATIO 9 ratio Normal 0 - 30 [facility] Comment on above: Performed By: #### 2 68009 #### [facility],[address] [place] [address] 76802 Calcium [Mass/Vol] 9.4 mg/dL Normal 8.6 - 10.2 [facility] Comment on above: Performed By: #### 2 60164 #### [facility],[address] [place] [address] 97828 Creatinine [Mass/Vol] 2.2 mg/dL High 0.7 - 1.3 [facility] Comment on above: Performed By: #### 2 29176 #### [facility],[address] [place] [address] 53564 Glucose [Mass/Vol] 105 mg/dL Normal 74 - 106 [facility] Comment on above: Performed By: #### 2 15917 #### [facility],[address] [place] [address] 88109 Phosphate [Mass/Vol] 4.3 mg/dL Normal 2.7 - 4.9 [facility] Comment on above: Performed By: #### 2 61786 #### [facility],[address] [place] [address] 97562 RENAL FUNCTION PANEL Normal [facility] Comment on above: Result Comment: JESSICA L FUNCTION PANEL Performed By: #### 2 91326 #### [facility],[address] [place] [address] 18936 Urea nitrogen [Mass/Vol] 20 mg/dL Normal 6 - 20 [facility] Comment on above: Performed By: #### 2 27763 #### [facility],[address] [place] [address] 85996 URINALYSISon 11-05-2019 Bilirubin [Mass/Vol] Negative Normal NORMAL: NEGATIVE [facility] Comment on above: Performed By: #### 2 43936 #### [facility],[address] [place] [address] 18847 Blood Negative Normal NORMAL: NEGATIVE [facility] Comment on above: Performed By: #### 2 41928 #### [facility],[address] [place] [address] 88906 Clarity (U) clear Normal NORMAL: CLEAR [facility] Comment on above: Performed By: #### 2 99991 #### [facility],[address] [place] [address] 04019 Color (U) p.yel Normal NORMAL: YELLOW [facility] Comment on above: Performed By: #### 2 86028 #### [facility],[address] [place] [address] 83911 Glucose [Mass/Vol] NORM Normal NORMAL: NORMAL [facility] Comment on above: Performed By: #### 2 86660 #### [facility],[address] [place] [address] 76534 Ketone Negative Normal NORMAL: NEGATIVE [facility] Comment on above: Performed By: #### 2 61071 #### [facility],[address] [place] [address] 76285 Microscopic NOT INDICATED Normal [facility] Comment on above: Performed By: #### 2 64727 #### [facility],[address] [place] [address] Nitrite Ql (U) Negative Normal NORMAL: NEGATIVE [facility] Comment on above: Performed By: #### 2 75162 #### [facility],[address] [place] [address] pH (Bld) 6.5 Normal NORMAL: 5.0-8.0 [facility] Comment on above: Performed By: #### 2 02102 #### [facility],[address] [place] [address] Protein (U) [Mass/Vol] Negative Normal JENN L: NEGATIVE [facility] Comment on above: Performed By: #### 2 80801 #### [facility],[address] [place] [address] Sp [place] 1.010 Normal NORMAL: 1.010-1.03 0 [facility] Comment on above: Performed By: #### 2 70131 #### [facility],[address] [place] [address] Specimen type Nom (Spec) UNSPECIFIED Normal [facility] Comment on above: Performed By: #### 2 76481 #### [facility],[address] [place] [address] Urobilinog NORM Normal NORMAL: NORMAL [facility] Comment on above: Performed By: #### 2 03561 #### [facility],[address] [place] [address] WBC (Bld) [#/Vol] Negative Normal NORMAL: NEGATIVE [facility] Comment on above: Performed By: #### 2 47486 #### [facility],[address] [place] [address] URINE CREATININE AND PROTEIN RATIOon 11-05-2019 CREATININE UR 72.6 mg/dl Normal [facility] Comment on above: Performed By: #### 2 55379 #### [facility],[address] [place] [address] 38305 PC RATIO 0.07 mg/dL Normal 0.00 - 10.00 [facility] Comment on above: Performed By: #### 2 69482 #### [facility],[address] [place] [address] 32387 Protein (U) [Mass/Vol] mg/dL Normal 0.00 - 10.00 [facility] Comment on above: Performed By: #### 2 49516 #### [facility],[address] [place] [address] 61780 BMP with eGFRon 10-08-2019 Age - Reported 54 years Normal [facility] Comment on above: Performed By: #### 2 11984 #### [facility],[address] [place] [address] 22595 Anion gap [Moles/Vol] 12 mmol/L Normal 10 - 20 [facility] Comment on above: Performed By: #### 2 85579 #### [facility],[address] [place] [address] 35421 Calcium [Mass/Vol] 9.2 mg/dL Normal 8.6 - 10.2 [facility] Comment on above: Performed By: #### 2 29143 #### [facility],[address] [place] [address] 53755 Chloride [Moles/Vol] 107 mmol/L Normal 98 - 107 [facility] Comment on above: Performed By: #### 2 16990 #### [facility],[address] [place] [address] 14781 CO2 [Moles/Vol] 26.7 mmol/L Normal 21.0 - 31.0 [facility] Comment on above: Performed By: #### 2 30155 #### [facility],[address] [place] [address] 79222 Creatinine [Mass/Vol] 2.1 mg/dL High 0.7 - 1.3 [facility] Comment on above: Performed By: #### 2 24383 #### [facility],[address] [place] [address] 16963 GFR/1.73 sq M predicted among non-blacks MDRD (S/P/Bld) [Vol rate/Area] Normal [facility] Comment on above: Result Comment: BASI C METABOLIC PANEL Performed By: #### 2 06873 #### [facility],[address] [place] [address] 93285 GFR/1.73 sq M predicted among non-blacks MDRD (S/P/Bld) [Vol rate/Area] 40 ML/MINUTE Low 60 - 999 [facility] Comment on above: Result Comment: ACCO RDING TO THE NATIONAL KIDNEY DISEASE EDUCATION PROGRAM(NKDE), A NORMAL eGFR IS A VALUE GREATER THAN OR EQUAL TO 60 ML/MIN/1.73 SQ METERS. CHRONIC KIDNEY DISEASE: <60mL/MIN/1.73 SQ METERS KIDNEY FAILURE: <15mL/MIN/1.73 SQ METERS THIS TEST SHOULD ONLY BE USED FOR PATIENTS 18 YEARS OF AGE AND OLDER. Performed By: #### 2 92875 #### [facility],[address] [place] [address] 59821 GFR/1.73 sq M predicted among non-blacks MDRD (S/P/Bld) [Vol rate/Area] 33 ML/MINUTE Low 60 - 999 [facility] Comment on above: Performed By: #### 2 99043 #### [facility],[address] [place] [address] 29952 Glucose [Mass/Vol] 106 mg/dL Normal 74 - 106 [facility] Comment on above: Performed By: #### 2 50668 #### [facility],[address] [place] [address] 97852 Potassium [Moles/Vol] 3.6 mmol/L Normal 3.5 - 5.1 [facility] Comment on above: Performed By: #### 2 53561 #### [facility],[address] [place], [place] [address] Sodium [Moles/Vol] 142 mmol/L Normal 136 - 145 [facility] Comment on above: Performed By: #### 2 86701 #### [facility],[address] [place] [address] Urea nitrogen [Mass/Vol] 22 mg/dL High 6 - 20 [facility] Comment on above: Performed By: #### 2 66157 #### [facility],[address] [place] [address] CBC + DIFFon 10-08-2019 Basophils (Bld) [#/Vol] 0.10 x10EE3/UL Normal 0. 00 - 0.10 [facility] Comment on above: Performed By: #### 2 74987 #### [facility],[address] [place] [address] 20664 Basophils/100 WBC (Bld) 0.7 % Normal 0.0 - 2.0 [facility] Comment on above: Performed By: #### 2 56628 #### [facility],[address] [place] [address] CBC + DIFF Normal [facility] Comment on above: Result Comment: CBC- COMPLETE BLOOD COUNT Performed By: #### 2 44077 #### [facility],[address] [place] [address] 69654 Eosinophils (Bld) [#/Vol] 0.50 x10EE3/UL Normal 0.00 - 0.50 [facility] Comment on above: Performed By: #### 2 25565 #### [facility],[address] [place] [address] 40240 Eosinophils/100 WBC (Bld) 5.1 % Normal 0.0 - 7.0 [facility] Comment on above: Performed By: #### 2 31854 #### [facility],[address] [place] [address] Erythrocyte distribution width (RBC) [Ratio] 12.8 % Normal 12.0 - 15.6 [facility] Comment on above: Performed By: #### 2 48071 #### [facility],[address] [place], [place] [address] Hematocrit (Bld) [Volume fraction] 37.6 % Low 40.0 - 52.0 [facility] Comment on above: Performed By: #### 2 02037 #### [facility],[address] [place] [address] Hemoglobin (Bld) [Mass/Vol] 12.5 g/dL Low 13.0 - 17.5 [facility] Comment on above: Performed By: #### 2 78231 #### [facility],[address] [place], [place] [address] Lymphocytes (Bld) [#/Vol] 1.90 x10EE3/UL Normal 0.80 - 2.80 [facility] Comment on above: Performed By: #### 2 99155 #### [facility],[address] [place] [address] 88643 Lymphocytes/100 WBC (Bld) 18.6 % Low 20.0 - 45.0 [facility] Comment on above: Performed By: #### 2 54170 #### [facility],[address] [place], [place] [address] MANUAL DIFF N/A Normal [facility] Comment on above: Performed By: #### 2 67477 #### [facility],[address] [place] [address] 97427 MCH (RBC) [Entitic mass] 31 pg Normal 27 - 33 [facility] Comment on above: Performed By: #### 2 30329 #### [facility],[address] [place] [address] 23472 MCHC (RBC) [Mass/Vol] 33 X10 3 Normal 32 - 36 [facility] Comment on above: Performed By: #### 2 52978 #### [facility],[address] [place] [address] 42693 MCV (RBC) [Entitic vol] 93 fL Normal 81 - 98 [facility] Comment on above: Performed By: #### 2 24538 #### [facility],[address] [place] [address] 50694 Monocytes (Bld) [#/Vol] 1.00 x10EE3/UL Normal 0. 20 - 1.00 [facility] Comment on above: Performed By: #### 2 99595 #### [address] [address] MONOS % 9.4 % Normal 0.0 - 10.0 [facility] Comment on above: Performed By: #### 2 01048 #### [address] [address] Morphology Crisipn (Bld) [Interp] N/A Normal [facility] Comment on above: Performed By: #### 2 74519 #### [address] [address] Neutrophils (Bld) [#/Vol] 6.90 x10EE3/UL Normal 1.50 - 7.10 [facility] Comment on above: Performed By: #### 2 11481 #### [facility],[address] [place] [address] 28304 Neutrophils/100 WBC (Bld) 66.2 % Normal 46.0 - 76.0 [facility] Comment on above: Performed By: #### 2 94440 #### [address] [address] Platelet mean volume (Bld) [Entitic vol] 7.7 fL Normal 6.4 - 10.5 [facility] Comment on above: Result Comment: AUTO MATED DIFFERENTIAL Performed By: #### 2 32350 #### [facility],[address] [place] [address] 94689 Platelets (Bld) [#/Vol] 250 x10EE3/UL Normal 150 - 450 [facility] Comment on above: Performed By: #### 2 61444 #### [facility],[address] [place] [address] 13946 RBC (Bld) [#/Vol] 4.07 x 10EE6/UL Low 4.50 - 6.00 [facility] Comment on above: Performed By: #### 2 25062 #### [facility],[address] [place] [address] 19176 WBC (Bld) [#/Vol] 10.4 x 10EE3/UL Normal 4.5 - 10.8 [facility] Comment on above: Performed By: #### 2 31310 #### [facility],[address] [place], [place] [address] CULTURE URINEon 10-08-2019 CULTURE URINE CULTURE URINE _URINE CULTURE_ M I C R O B I O L O G Y R E P O R T FINAL ------- Antimicrobial Susceptibility and Organism Identification Report -------- Specimen Number : [id number] Requested : 10/08/19 Specimen Source : URINE Collected : 10/08/19 08:30 Arredondo of [place]olation : MEME HUANG Received : 10/08/19 08:30 Requesting Physician : FLORECITA -- Patient/Specimen Tests and Comments Specimen Comments -------- -------- FINAL REPORT: NO GROWTH AT 48 HOURS -- Tech : Source : URINE ID # : [id number] FINAL Report Date : / / : Collected : 10/08/19 08:30 10/10/19.1115.BKO. 10/09/19.1011.BKO. 10/10/19.1115.BKO.COMPLETE Normal [facility] Comment on above: Performed By: #### 2 74059 #### [facility],[address] [place] [address] 69135 HEPATIC FUNCTION PANELon ALK PHOS 52 U/L Normal 38 - 126 [facility] Comment on above: Performed By: #### 2 99318 #### [facility],[address] [place] [address] 96107 ALT/SGPT 15 U/L Normal 10 - 40 [facility] Comment on above: Performed By: #### 2 98488 #### [facility],[address] [place], [place] [address] AST/SGOT 9 U/L Low 13 - 39 [facility] Comment on above: Performed By: #### 2 14789 #### [facility],[address] [place] [address] 47793 Bilirubin [Mass/Vol] 0.3 mg/dL Normal 0.0 - 1.5 [facility] Comment on above: Performed By: #### 2 18482 #### [facility],[address] [place] [address] Bilirubin.direct [Mass/Vol] 0.1 mg/dL Normal 0.0 - 0.1 [facility] Comment on above: Performed By: #### 2 87902 #### [facility],[address] [place] [address] HEPATIC FUNCTION PANEL Normal [facility] Comment on above: Result Comment: HEPA TIC FUNCTION PROFILE Performed By: #### 2 12652 #### [facility],[address] [place], [place] [address] Protein [Mass/Vol] 5.5 g/dL Low 6.4 - 8.3 [facility] Comment on above: Performed By: #### 2 79082 #### [facility],[address] [place] [address] 92208 LITHIUMon 10-08-2019 [place] [Moles/Vol] 0.6 mmol/L Normal 0.6 - 1.2 [facility] Comment on above: Performed By: #### 2 80283 #### [facility],[address] [place] [address] 73875 RENAL FUNCTION PANELon 10-08 Albumin [Mass/Vol] 3.5 g/dL Normal 3.4 - 4.8 [facility] Comment on above: Performed By: #### 2 87733 #### [facility],[address] [place] [address] 57703 B/C RATIO 10 ratio Normal 0 - 30 [facility] Comment on above: Performed By: #### 2 73153 #### [facility],[address] [place] [address] 23004 Calcium [Mass/Vol] 9.2 mg/dL Normal 8.6 - 10.2 [facility] Comment on above: Performed By: #### 2 78125 #### [facility],[address] [place] [address] 93738 Chloride [Moles/Vol] 107 mmol/L Normal 98 - 107 [facility] Comment on above: Performed By: #### 2 81074 #### [facility],[address] [place] [address] 07736 CO2 [Moles/Vol] 26.7 mmol/L Normal 21.0 - 31.0 [facility] Comment on above: Performed By: #### 2 07430 #### [facility],[address] [place] [address] 28063 Creatinine [Mass/Vol] 2.1 mg/dL High 0.7 - 1.3 [facility] Comment on above: Performed By: #### 2 57148 #### [facility],[address] [place] [address] 19519 Glucose [Mass/Vol] 106 mg/dL Normal 74 - 106 [facility] Comment on above: Performed By: #### 2 27037 #### [facility],[address] [place] [address] 80688 Phosphate [Mass/Vol] 4.7 mg/dL Normal 2.7 - 4.9 [facility] Comment on above: Performed By: #### 2 85722 #### [facility],[address] [place] [address] 56125 Potassium [Moles/Vol] 3.6 mmol/L Normal 3.5 - 5.1 [facility] Comment on above: Performed By: #### 2 83485 #### [facility],[address] [place] [address] 41390 RENAL FUNCTION PANEL Normal [facility] Comment on above: Result Comment: JESSICA L FUNCTION PANEL Performed By: #### 2 64281 #### [facility],[address] [place] [address] 43397 Sodium [Moles/Vol] 142 mmol/L Normal 136 - 145 [facility] Comment on above: Performed By: #### 2 51467 #### [facility],[address] [place] [address] Urea nitrogen [Mass/Vol] 22 mg/dL High 6 - [facility] Comment on above: Performed By: #### 2 43698 #### [facility],[address] [place], [place] [address] URINALYSISon 10-08-2019 Bilirubin [Mass/Vol] Negative Normal NORMAL: NEGATIVE [facility] Comment on above: Performed By: #### 2 95292 #### [facility],[address] [place], [place] [address] Blood Negative Normal NORMAL: NEGATIVE [facility] Comment on above: Performed By: #### 2 76368 #### [facility],[address] [place], [place] [address] Clarity (U) clear Normal NORMAL: CLEAR [facility] Comment on above: Performed By: #### 2 25875 #### [facility],[address] [place] [address] 18864 Color (U) p.yel Normal NORMAL: YELLOW [facility] Comment on above: Performed By: #### 2 01937 #### [facility],[address] [place] [address] 72193 Glucose [Mass/Vol] NORM Normal NORMAL: NORMAL [facility] Comment on above: Performed By: #### 2 50298 #### [facility],[address] [place] [address] 40873 Ketone Negative Normal NORMAL: NEGATIVE [facility] Comment on above: Performed By: #### 2 69928 #### [facility],[address] [place] [address] Microscopic NOT INDICATED Normal [facility] Comment on above: Performed By: #### 2 82789 #### [facility],[address] [place] [address] Nitrite Ql (U) Negative Normal NORMAL: NEGATIVE [facility] Comment on above: Performed By: #### 2 48445 #### [facility],[address] [place] [address] pH (Bld) 6 Normal NORMAL: 5.0-8.0 [facility] Comment on above: Performed By: #### 2 25180 #### [facility],[address] [place] [address] Protein (U) [Mass/Vol] Negative Normal JENN L: NEGATIVE [facility] Comment on above: Performed By: #### 2 91897 #### [facility],[address] [place] [address] Sp [place] 1.015 Normal NORMAL: 1.010-1.03 0 [facility] Comment on above: Performed By: #### 2 45355 #### [facility],[address] [place] [address] Specimen type Nom (Spec) Clean catch Normal [facility] Comment on above: Performed By: #### 2 00183 #### [facility],[address] [place] [address] Urobilinog NORM Normal NORMAL: NORMAL [facility] Comment on above: Performed By: #### 2 89397 #### [facility],[address] [place] [address] WBC (Bld) [#/Vol] Negative Normal NORMAL: NEGATIVE [facility] Comment on above: Performed By: #### 2 56518 #### [facility],[address] [place] [address] CBC + DIFFon 10-28-2019 Basophils (Bld) [#/Vol] 0.10 x10EE3/UL Normal 0. 00 - 0.10 [facility] Comment on above: Performed By: #### 2 58409 #### [facility],[address] [place] [address] 84222 Basophils/100 WBC (Bld) 1.0 % Normal 0.0 - 2.0 [facility] Comment on above: Performed By: #### 2 79999 #### [facility],[address] [place] [address] 51665 CBC + DIFF Normal [facility] Comment on above: Result Comment: CBC- COMPLETE BLOOD COUNT Performed By: #### 2 11504 #### [facility],[address] [place] [address] 97941 Eosinophils (Bld) [#/Vol] 0.50 x10EE3/UL Normal 0.00 - 0.50 [facility] Comment on above: Performed By: #### 2 85239 #### [facility],[address] [place] [address] 28651 Eosinophils/100 WBC (Bld) 6.3 % Normal 0.0 - 7.0 [facility] Comment on above: Performed By: #### 2 03384 #### [facility],[address] [place] [address] 15524 Erythrocyte distribution width (RBC) [Ratio] 13.3 % Normal 12.0 - 15.6 [facility] Comment on above: Performed By: #### 2 67473 #### [facility],[address] [place] [address] 30938 Hematocrit (Bld) [Volume fraction] 36.9 % Low 40.0 - 52.0 [facility] Comment on above: Performed By: #### 2 46943 #### [facility],[address] [place] [address] 88094 Hemoglobin (Bld) [Mass/Vol] 12.5 g/dL Low 13.0 - 17.5 [facility] Comment on above: Performed By: #### 2 47372 #### [facility],[address] [place] [address] 54984 Lymphocytes (Bld) [#/Vol] 2.20 x10EE3/UL Normal 0.80 - 2.80 [facility] Comment on above: Performed By: #### 2 66186 #### [facility],[address] [place] [address] 86740 Lymphocytes/100 WBC (Bld) 25.0 % Normal 20.0 - 45.0 [facility] Comment on above: Performed By: #### 2 49906 #### [facility],[address] [place] [address] 29680 MANUAL DIFF N/A Normal [facility] Comment on above: Performed By: #### 2 09426 #### [facility],[address] [place] [address] 65417 MCH (RBC) [Entitic mass] 31 pg Normal 27 - 33 [facility] Comment on above: Performed By: #### 2 95448 #### [facility],[address] [place] [address] 85112 MCHC (RBC) [Mass/Vol] 34 X10 3 Normal 32 - 36 [facility] Comment on above: Performed By: #### 2 90402 #### [facility],[address] [place] [address] 98464 MCV (RBC) [Entitic vol] 93 fL Normal 81 - 98 [facility] Comment on above: Performed By: #### 2 31198 #### [address] [address] Monocytes (Bld) [#/Vol] 0.90 x10EE3/UL Normal 0. 20 - 1.00 [facility] Comment on above: Performed By: #### 2 57540 #### [place] [address],[place] [address] MONOS % 10.6 % High 0.0 - 10.0 [facility] Comment on above: Performed By: #### 2 24328 #### [facility],[address] [place] [address] 34362 Morphology Crispin (Bld) [Interp] N/A Normal [facility] Comment on above: Performed By: #### 2 02773 #### [facility],[address] [place] [address] 15357 Neutrophils (Bld) [#/Vol] 5.00 x10EE3/UL Normal 1.50 - 7.10 [facility] Comment on above: Performed By: #### 2 06700 #### [facility],[address] [place] [address] 82168 Neutrophils/100 WBC (Bld) 57.1 % Normal 46.0 - 76.0 [facility] Comment on above: Performed By: #### 2 24484 #### [facility],[address] [place] [address] 53170 Platelet mean volume (Bld) [Entitic vol] 7.6 fL Normal 6.4 - 10.5 [facility] Comment on above: Result Comment: AUTO MATED DIFFERENTIAL Performed By: #### 2 53684 #### [address] [address] Platelets (Bld) [#/Vol] 236 x10EE3/UL Normal 150 - 450 [facility] Comment on above: Performed By: #### 2 86460 #### [facility],[address] [place] [address] 27877 RBC (Bld) [#/Vol] 3.99 x 10EE6/UL Low 4.50 - 6.00 [facility] Comment on above: Performed By: #### 2 57333 #### [facility],[address] [place] [address] 12108 WBC (Bld) [#/Vol] 8.7 x 10EE3/UL Normal 4.5 - 10.8 Gerald [facility] Comment on above: Performed By: #### 2 81940 #### [facility],[address] [place] [address] 30650 CULTURE URINEon 09-10-2019 CULTURE URINE CULTURE URINE _URINE CULTURE_ M I C R O B I O L O G Y R E P O R T FINAL ------- Antimicrobial Susceptibility and Organism Identification Report -------- Specimen Number : [id number] Requested : 09/10/19 Specimen Source : CLEAN CATCH URINE Collected : 09/10/19 04:30 Ar[place]ondo of Isolation : MEME HUANG Received : 09/10/19 04:30 Requesting Physician : FLORECITA -- Patient/Specimen Tests and Comments Specimen Comments -------- -------- FINAL REPORT: NO GROWTH AT 48 HOURS -- Tech : Source : CLEAN CATCH URINE ID # : [id number] FINAL Report Date : / / : Collected : 09/10/19 04:30 09/12/19.BKO. 09/11/19.0717.JLN. 09/12/19.BKO.COMPLETE 09/12/19.BKO.to [facility] via fax Normal [facility] Comment on above: Performed By: #### 2 82653 #### [facility],[address] [place], [place] [address] LITHIUMon 09-10-2019 [place] [Moles/Vol] 0.6 mmol/L Normal 0.6 - 1.2 [facility] Comment on above: Performed By: #### 2 98484 #### [facility],[address] [place] [address] 32028 RENAL FUNCTION PANEL WITH eG FRon 09-10-2019 Age - Reported 54 years Normal [facility] Comment on above: Performed By: #### 2 25189 #### [facility],[address] [place] [address] 62314 Albumin [Mass/Vol] 3.4 g/dL Normal 3.4 - 4.8 [facility] Comment on above: Performed By: #### 2 85959 #### [facility],[address] [place] [address] 82112 B/C RATIO 11 ratio Normal 0 - 30 [facility] Comment on above: Performed By: #### 2 73160 #### [facility],[address] [place] [address] 06497 Calcium [Mass/Vol] 9.2 mg/dL Normal 8.6 - 10.2 [facility] Comment on above: Performed By: #### 2 51520 #### [facility],[address] [place] [address] 96617 Chloride [Moles/Vol] 107 mmol/L Normal 98 - 107 [facility] Comment on above: Performed By: #### 2 52224 #### [facility],[address] [place] [address] 99485 CO2 [Moles/Vol] 25.3 mmol/L Normal 21.0 - 31.0 [facility] Comment on above: Performed By: #### 2 79493 #### [facility],[address] [place] [address] 25866 Creatinine [Mass/Vol] 2.2 mg/dL High 0.7 - 1.3 [facility] Comment on above: Performed By: #### 2 38817 #### [facility],[address] [place] [address] 13217 GFR/1.73 sq M predicted among non-blacks MDRD (S/P/Bld) [Vol rate/Area] 31 ML/MINUTE Low 60 - 999 [facility] Comment on above: Performed By: #### 2 29415 #### [facility],[address] [place] [address] 24795 GFR/1.73 sq M predicted among non-blacks MDRD (S/P/Bld) [Vol rate/Area] 38 ML/MINUTE Low 60 - 999 [facility] Comment on above: Result Comment: ACCO RDING TO THE NATIONAL KIDNEY DISEASE EDUCATION PROGRAM(NKDE), A NORMAL eGFR IS A VALUE GREATER THAN OR EQUAL TO 60 ML/MIN/1.73 SQ METERS. CHRONIC KIDNEY DISEASE: <60mL/MIN/1.73 SQ METERS KIDNEY FAILURE: <15mL/MIN/1.73 SQ METERS THIS TEST SHOULD ONLY BE USED FOR PATIENTS 18 YEARS OF AGE AND OLDER. Performed By: #### 2 95528 #### [facility],[address] [place] [address] 31823 Glucose [Mass/Vol] 96 mg/dL Normal 74 - 106 [facility] Comment on above: Performed By: #### 2 24424 #### [facility],[address] [place] [address] 86596 Phosphate [Mass/Vol] 4.5 mg/dL Normal 2.7 - 4.9 [facility] Comment on above: Performed By: #### 2 12696 #### [facility],[address] [place] [address] 33190 Potassium [Moles/Vol] 3.5 mmol/L Normal 3.5 - 5.1 [facility] Comment on above: Performed By: #### 2 26221 #### [facility],[address] [place] [address] 60874 RENAL FUNCTION PANEL WITH eGFR Normal [facility] Comment on above: Result Comment: JESSICA L FUNCTION PANEL Performed By: #### 2 44964 #### [facility],[address] [place] [address] 59885 Sodium [Moles/Vol] 141 mmol/L Normal 136 - 145 [facility] Comment on above: Performed By: #### 2 94610 #### [facility],[address] [place] [address] 49580 Urea nitrogen [Mass/Vol] 24 mg/dL High 6 - 20 [facility] Comment on above: Performed By: #### 2 01726 #### [facility],[address] [place] [address] 85170 URINALYSISon 09-10-2019 Bilirubin [Mass/Vol] Negative Normal NORMAL: NEGATIVE [facility] Comment on above: Performed By: #### 2 67435 #### [facility],[address] [place] [address] 51389 Blood Negative Normal NORMAL: NEGATIVE [facility] Comment on above: Performed By: #### 2 48670 #### [facility],[address] [place] [address] 83853 Clarity (U) clear Normal NORMAL: CLEAR [facility] Comment on above: Performed By: #### 2 38826 #### [facility],[address] [place] [address] 36229 Color (U) p.yel Normal NORMAL: YELLOW [facility] Comment on above: Performed By: #### 2 64705 #### [facility],[address] [place] [address] 66664 Glucose [Mass/Vol] NORM Normal NORMAL: NORMAL [facility] Comment on above: Performed By: #### 2 74665 #### [facility],[address] [place], [place] [address] Ketone Negative Normal NORMAL: NEGATIVE [facility] Comment on above: Performed By: #### 2 86179 #### [facility],[address] [place], [place] [address] Microscopic NOT INDICATED Normal [facility] Comment on above: Performed By: #### 2 02046 #### [facility],[address] [place] [address] 80012 Nitrite Ql (U) Negative Normal NORMAL: NEGATIVE [facility] Comment on above: Performed By: #### 2 14475 #### [facility],[address] [place] [address] 55793 pH (Bld) 6.5 Normal NORMAL: 5.0-8.0 [facility] Comment on above: Performed By: #### 2 91836 #### [facility],[address] [place] [address] 66570 Protein (U) [Mass/Vol] Negative Normal JENN L: NEGATIVE [facility] Comment on above: Performed By: #### 2 38863 #### [facility],[address] [place] [address] 26481 Sp [place] 1.010 Normal NORMAL: 1.010-1.03 0 [facility] Comment on above: Performed By: #### 2 00623 #### [facility],[address] [place] [address] Specimen type Nom (Spec) Clean catch Normal [facility] Comment on above: Performed By: #### 2 70908 #### [facility],[address] [place] [address] Urobilinog NORM Normal NORMAL: NORMAL [facility] Comment on above: Performed By: #### 2 28177 #### [facility],[address] [place] [address] WBC (Bld) [#/Vol] Negative Normal NORMAL: NEGATIVE [facility] Comment on above: Performed By: #### 2 99063 #### [facility],[address] [place] [address] URINE CREATININE AND PROTEIN RATIOon 09-10-2019 CREATININE UR 58.3 mg/dl Normal [facility] Comment on above: Performed By: #### 2 36110 #### [facility],[address] [place] [address] PC RATIO 0.09 mg/dL Normal 0.00 - 10.00 [facility] Comment on above: Performed By: #### 2 91205 #### [facility],[address] [place] [address] 07070 Protein (U) [Mass/Vol] mg/dL Normal 0.00 - 10.00 [facility] Comment on above: Performed By: #### 2 75393 #### [facility],[address] [place] [address] 99201 BMP with eGFRon 08-31-2019 Age - Reported 54 years Normal [facility] Comment on above: Performed By: #### 2 41023 #### [facility],[address] [place], [place] [address] Anion gap [Moles/Vol] 12 mmol/L Normal 10 - 20 [facility] Comment on above: Performed By: #### 2 99385 #### [facility],[address] [place] [address] 73998 Calcium [Mass/Vol] 9.4 mg/dL Normal 8.6 - 10.2 [facility] Comment on above: Performed By: #### 2 94928 #### [facility],[address] [place] [address] 31913 Chloride [Moles/Vol] 104 mmol/L Normal 98 - 107 [facility] Comment on above: Performed By: #### 2 56645 #### [facility],[address] [place] [address] 68856 CO2 [Moles/Vol] 26.9 mmol/L Normal 21.0 - 31.0 [facility] Comment on above: Performed By: #### 2 95223 #### [facility],[address] [place] [address] 64898 Creatinine [Mass/Vol] 2.4 mg/dL High 0.7 - 1.3 [facility] Comment on above: Performed By: #### 2 91787 #### [facility],[address] [place] [address] 88177 GFR/1.73 sq M predicted among non-blacks MDRD (S/P/Bld) [Vol rate/Area] Normal [facility] Comment on above: Result Comment: BASI C METABOLIC PANEL Performed By: #### 2 96090 #### [facility],[address] [place] [address] 49801 GFR/1.73 sq M predicted among non-blacks MDRD (S/P/Bld) [Vol rate/Area] 28 ML/MINUTE Low 60 - 999 [facility] Comment on above: Performed By: #### 2 55756 #### [facility],[address] [place] [address] 36214 GFR/1.73 sq M predicted among non-blacks MDRD (S/P/Bld) [Vol rate/Area] 34 ML/MINUTE Low 60 - 999 [facility] Comment on above: Result Comment: ACCO RDING TO THE NATIONAL KIDNEY DISEASE EDUCATION PROGRAM(NKDE), A NORMAL eGFR IS A VALUE GREATER THAN OR EQUAL TO 60 ML/MIN/1.73 SQ METERS. CHRONIC KIDNEY DISEASE: <60mL/MIN/1.73 SQ METERS KIDNEY FAILURE: <15mL/MIN/1.73 SQ METERS THIS TEST SHOULD ONLY BE USED FOR PATIENTS 18 YEARS OF AGE AND OLDER. Performed By: #### 2 19877 #### [facility],[address] [place] [address] 16857 Glucose [Mass/Vol] 106 mg/dL Normal 74 - 106 [facility] Comment on above: Performed By: #### 2 10895 #### [facility],[address] [place] [address] 72054 Potassium [Moles/Vol] 3.5 mmol/L Normal 3.5 - 5.1 [facility] Comment on above: Performed By: #### 2 72361 #### [facility],[address] [place] [address] 69221 Sodium [Moles/Vol] 139 mmol/L Normal 136 - 145 [facility] Comment on above: Performed By: #### 2 72591 #### [facility],[address] [place] [address] 94138 Urea nitrogen [Mass/Vol] 25 mg/dL High 6 - 20 [facility] Comment on above: Performed By: #### 2 28823 #### [facility],[address] [place] [address] 62143 HGB A1C [CCL]on 08-26-2019 HbA1c (Bld) [Mass fraction] 117 mg/dL Normal [facility] Comment on above: Result Comment: eAG: (Estimated average glucose) is a calculated value from HgbA1c and is pharmaceutical specialty representative of the average blood glucose level in the last 2-3 month period. [facility] [employer] [address]me Griffiths-Thee,M.D. [id number] Performed By: #### 2 10223 #### [address] [address] HbA1c (Bld) [Mass fraction] 5.7 % High 4.3-5.6 [facility] Comment on above: Result Comment: [facility] Diabetes Association guidelines indicate that patients with HgbA1c in the range 5.7-6.4% are at increased risk for development of diabetes, and intervention by lifestyle modification may be beneficial. HgbA1c greater or equal to 6.5% is considered diagnostic of diabetes. Performed By: #### 2 27380 #### [address] [address] Hemoglobin A1con 08-26-2019 HbA1c (Bld) [Mass fraction] 5.7 % High 4.3-5.6 [facility] Comment on above: Performed By: #### H BA1C #### [facility] [address] [place] [id number] HbA1c (Bld) [Mass fraction] 117 mg/dL Normal [facility] Comment on above: Performed By: #### H BA1C #### [facility] [address] [place], [place] [address] RENAL FUNCTION PANELon 08-14 Albumin [Mass/Vol] 3.2 g/dL Low 3.4 - 4.8 [facility] Comment on above: Performed By: #### 2 97919 #### [address] [address] B/C RATIO 13 ratio Normal 0 - 30 [facility] Comment on above: Performed By: #### 2 33253 #### [address] [address]773 Calcium [Mass/Vol] 8.8 mg/dL Normal 8.6 - 10.2 [facility] Comment on above: Performed By: #### 2 18909 #### [facility],[address] [place] [address] 62033 Chloride [Moles/Vol] 105 mmol/L Normal 98 - 107 [facility] Comment on above: Performed By: #### 2 94291 #### [facility],[address] [place] [address] 47486 CO2 [Moles/Vol] 29.8 mmol/L Normal 21.0 - 31.0 [facility] Comment on above: Performed By: #### 2 22114 #### [facility],[address] [place] [address] 99556 Creatinine [Mass/Vol] 2.0 mg/dL High 0.7 - 1.3 [facility] Comment on above: Performed By: #### 2 98399 #### [facility] [facility] [place] [address] 73322 Glucose [Mass/Vol] 78 mg/dL Normal 74 - 106 [facility] Comment on above: Performed By: #### 2 60254 #### [facility],[address] [place] [address] 06812 Phosphate [Mass/Vol] 4.8 mg/dL Normal 2.7 - 4.9 [facility] Comment on above: Performed By: #### 2 15312 #### [facility],[address] [place] [address] 80290 Potassium [Moles/Vol] 3.9 mmol/L Normal 3.5 - 5.1 [facility] Comment on above: Performed By: #### 2 39706 #### [facility],[address] [place] [address] 97579 RENAL FUNCTION PANEL Normal [facility] Comment on above: Result Comment: JESSICA L FUNCTION PANEL Performed By: #### 2 73983 #### [facility],[address] [place] [address] 71686 Sodium [Moles/Vol] 141 mmol/L Normal 136 - 145 [facility] Comment on above: Performed By: #### 2 93208 #### [facility],[address] [place] [address] Urea nitrogen [Mass/Vol] 25 mg/dL High 6 - 20 [facility] Comment on above: Performed By: #### 2 58001 #### [facility],[address] [place] [address] CBC (NO DIFF)on 08-06-2019 CBC (NO DIFF) Normal [facility] Comment on above: Result Comment: CBC( WITHOUT DIFFERENTIAL) Performed By: #### 2 02885 #### [facility],[address] [place], [place] [address] Erythrocyte distribution width (RBC) [Ratio] 13.2 % Normal 12.0 - 15.6 [facility] Comment on above: Performed By: #### 2 39793 #### [facility],[address] [place], [place] [address] Hematocrit (Bld) [Volume fraction] 37.7 % Low 40.0 - 52.0 [facility] Comment on above: Performed By: #### 2 91994 #### [facility],[address] [place] [address] 26796 Hemoglobin (Bld) [Mass/Vol] 12.9 g/dL Low 13.0 - 17.5 [facility] Comment on above: Performed By: #### 2 01829 #### [facility],[address] [place] [address] 76750 MCH (RBC) [Entitic mass] 32 pg Normal 27 - 33 [facility] Comment on above: Performed By: #### 2 67605 #### [facility],[address] [place] [address] 42453 MCHC (RBC) [Mass/Vol] 34 X10 3 Normal 32 - 36 [facility] Comment on above: Performed By: #### 2 02885 #### [facility] [place] [address] 46040 MCV (RBC) [Entitic vol] 94 fL Normal 81 - 98 [facility] Comment on above: Performed By: #### 2 05581 #### [facility],[address] [place] [address] 96097 Platelet mean volume (Bld) [Entitic vol] 7.3 fL Normal 6.4 - 10.5 [facility] Comment on above: Performed By: #### 2 90437 #### [facility],[address] [place] [address] 32844 Platelets (Bld) [#/Vol] 166 x10EE3/UL Normal 150 - 450 [facility] Comment on above: Performed By: #### 2 22435 #### [facility],[address] [place] [address] 33825 RBC (Bld) [#/Vol] 4.00 x 10EE6/UL Low 4.50 - 6.00 [facility] Comment on above: Performed By: #### 2 39785 #### [facility],[address] [place] [address] 90160 WBC (Bld) [#/Vol] 8.7 x 10EE3/UL Normal 4.5 - 10.8 [facility] Comment on above: Performed By: #### 2 46360 #### [facility],[address] [place] [address] 20473 CULTURE URINEon 08-06-2019 CULTURE URINE CULTURE URINE _URINE CULTURE_ M I C R O B I O L O G Y R E P O R T FINAL ------- Antimicrobial Susceptibility and Organism Identification Report -------- Specimen Number : [id number] Requested : 08/06/19 Specimen Source : CLEAN CATCH URINE Collected : 08/06/19 03:10 [place] of Isolation : MEME HUANG Received : 08/06/19 03:10 Requesting Physician : FLORECITA -- Patient/Specimen Tests and Comments Specimen Comments -------- -------- FINAL REPORT: NO GROWTH AT 48 HOURS -- Tech : Source : CLEAN CATCH URINE ID # : [id number] FINAL Report Date : / / : Collected : 08/06/19 03:10 08/08/19.1104.BKO. 08/07/19.0711.JLN. 08/08/19.1105.BKO.COMPLETE Normal [facility] Comment on above: Performed By: #### 2 98171 #### [facility],[address] [place] [address] 61064 LITHIUMon 08-06-2019 [place] [Moles/Vol] 0.6 mmol/L Normal 0.6 - 1.2 [facility] Comment on above: Performed By: #### 2 42340 #### [facility],[address] [place] [address] 72834 MR MRI BRAIN W/O CONTRASTon 08-06-2019 MR MRI BRAIN W/O CONTRAST [place] [id number] Patient: REGGIE LEÓN Phone#: : 1965 Age: 54 Gender: M Pt. Type: Out Account: [id number] Location: Ordering: HODA BERNABE Exam Date: 08/06/2019/8:56 Family Phys: Charge Code: [id number] Physician: Cedar Order #: [id number] DLP Dose#: PROCEDURE: MRI BRAIN WITHOUT CONTRAST [...] Momin MD on 08/06/2019 at 9:51 Normal [facility] RENAL FUNCTION PANELon 08-06 Albumin [Mass/Vol] 3.3 g/dL Low 3.4 - 4.8 [facility] Comment on above: Performed By: #### 2 73990 #### [facility],[address] [place] [address] 28693 B/C RATIO 11 ratio Normal 0 - 30 [facility] Comment on above: Performed By: #### 2 56414 #### [facility],[address] [place] [address] 18429 Calcium [Mass/Vol] 8.9 mg/dL Normal 8.6 - 10.2 [facility] Comment on above: Performed By: #### 2 39924 #### [facility],[address] [place] [address] 88991 Chloride [Moles/Vol] 107 mmol/L Normal 98 - 107 [facility] Comment on above: Performed By: #### 2 80644 #### [facility],[address] [place] [address] 76213 CO2 [Moles/Vol] 26.8 mmol/L Normal 21.0 - 31.0 [facility] Comment on above: Performed By: #### 2 02422 #### [facility],[address] [place] [address] 28724 Creatinine [Mass/Vol] 2.2 mg/dL High 0.7 - 1.3 [facility] Comment on above: Performed By: #### 2 27988 #### [facility],[address] [place] [address] 77456 Glucose [Mass/Vol] 84 mg/dL Normal 74 - 106 [facility] Comment on above: Performed By: #### 2 55985 #### [facility],[address] [place] [address] 51042 Phosphate [Mass/Vol] 3.9 mg/dL Normal 2.7 - 4.9 [facility] Comment on above: Performed By: #### 2 20968 #### [facility],[address] [place] [address] 95139 Potassium [Moles/Vol] 4.1 mmol/L Normal 3.5 - 5.1 [facility] Comment on above: Performed By: #### 2 60345 #### [facility],[address] [place] [address] 47837 RENAL FUNCTION PANEL Normal [facility] Comment on above: Result Comment: JESSICA L FUNCTION PANEL Performed By: #### 2 93953 #### [facility],[address] [place] [address] 57358 Sodium [Moles/Vol] 141 mmol/L Normal 136 - 145 [facility] Comment on above: Performed By: #### 2 95890 #### [facility],[address] [place] [address] 54562 Urea nitrogen [Mass/Vol] 25 mg/dL High 6 - 20 [facility] Comment on above: Performed By: #### 2 68804 #### [facility],[address] [place] [address] 82571 URINALYSISon 08-06-2019 Bilirubin [Mass/Vol] Negative Normal NORMAL: NEGATIVE [facility] Comment on above: Performed By: #### 2 06786 #### [facility],[address] [place] [address] 42404 Blood Negative Normal NORMAL: NEGATIVE [facility] Comment on above: Performed By: #### 2 04841 #### [facility],[address] [place] [address] 10782 Clarity (U) clear Normal NORMAL: CLEAR [facility] Comment on above: Performed By: #### 2 06332 #### [facility],[address] [place] [address] 07834 Color (U) p.yel Normal NORMAL: YELLOW [facility] Comment on above: Performed By: #### 2 09076 #### [facility],[address] [place], [place] [address] Glucose [Mass/Vol] NORM Normal NORMAL: NORMAL [facility] Comment on above: Performed By: #### 2 30648 #### [facility],[address] [place] [address] 75304 Ketone Negative Normal NORMAL: NEGATIVE [facility] Comment on above: Performed By: #### 2 66203 #### [facility],[address] [place], [place] [address] Microscopic NOT Normal [facility] Comment on above: Performed By: #### 2 20432 #### [facility],[address] [place], [place] [address] Nitrite Ql (U) Negative Normal NORMAL: NEGATIVE [facility] Comment on above: Performed By: #### 2 96727 #### [facility],[address] [place] [address] pH (Bld) 8 Normal NORMAL: 5.0-8.0 [facility] Comment on above: Performed By: #### 2 89736 #### [facility],[address] [place] [address] Protein (U) [Mass/Vol] Negative Normal JENN L: NEGATIVE [facility] Comment on above: Performed By: #### 2 66921 #### [facility],[address] [place], [place] [address] Sp [place] 1.010 Normal NORMAL: 1.010-1.03 0 [facility] Comment on above: Performed By: #### 2 25114 #### [facility],[address] [place] [address] 53880 Specimen type Nom (Spec) Clean catch Normal [facility] Comment on above: Performed By: #### 2 53216 #### [facility],[address] [place], [place] [address] Urobilinog NORM Normal NORMAL: NORMAL [facility] Comment on above: Performed By: #### 2 60070 #### [facility],[address] [place] [address] 13501 WBC (Bld) [#/Vol] Negative Normal NORMAL: NEGATIVE [facility] Comment on above: Performed By: #### 2 49991 #### [facility],[address] [place] [address] 07189 URINE CREATININE AND PROTEIN RATIOon 08-06-2019 CREATININE UR 35.5 mg/dl Normal [facility] Comment on above: Performed By: #### 2 76561 #### [facility],[address] [place] [address] 31488 PC RATIO 0.11 mg/dL Normal 0.00 - 10.00 [facility] Comment on above: Performed By: #### 2 98043 #### [facility],[address] [place] [address] 25425 Protein (U) [Mass/Vol] mg/dL Normal 0.00 - 10.00 [facility] Comment on above: Performed By: #### 2 29442 #### [facility],[address] [place] [address] 42146 Ammoniaon 03-19-2019 Ammonia mass conc (P) 34 umol/L Normal 16-60 [facility] Comment on above: Performed By: #### L ITH #### [facility] [place] [address] [place] [address] Basic Metabolic Panelon 05 Anion gap molar conc 13 mmol/L Normal 9-15 [facility] Comment on above: Result Comment: Effe ctive: 12/21/2018 New reference range for this analyte has been established. Performed By: #### L ITH #### [facility] [place] [address] [place] [address] Calcium mass conc 8.8 mg/dL Normal 8.5-9.9 [facility] [place] Comment on above: Result Comment: Effe ctive: 12/21/2018 New reference range for this analyte has been established. Performed By: #### L ITH #### [facility] [place] [address] [place] [address] Chloride molar conc 106 mmol/L Normal 95-107 [facility] [place] Comment on above: Result Comment: Effe ctive: 12/21/2018 New reference range for this analyte has been established. Performed By: #### L ITH #### [facility] [place] [address] [place] [address] CO2 molar conc 22 mmol/L Normal 20-31 [facility] [place] Comment on above: Result Comment: Effe ctive: 12/21/2018 New reference range for this analyte has been established. Performed By: #### L ITH #### [facility] [place] [address] [place] [address] Creatinine mass conc 1.78 mg/dL Critically high 0.70-1.20 [facility] [place] Comment on above: Performed By: #### L ITH #### [facility] [place] [address] [place] [address] GFR/1.73 sq M predicted among blacks MDRD vol rate/area (S/P/Bld) 48.1 mL/min/{1.73_m2} Low >60 [facility] [place] Comment on above: Result Comment: >60 mL/min/1.73m2 EGFR, calc. for ages 18 and older using the MDRD formula (not corrected for weight), is valid for stable renal function. Performed By: #### L ITH #### [facility] [place] [address] [place] [address] GFR/1.73 sq M.predicted MDRD vol rate/area 39.8 mL/min/{1.73_m2} Low >60 [facility] [place] Comment on above: Result Comment: >60 mL/min/1.73m2 EGFR, calc. for ages 18 and older using the MDRD formula (not corrected for weight), is valid for stable renal function. Performed By: #### L ITH #### [facility] [place] [address] [place] [address] Glucose mass conc 84 mg/dL Normal 70-99 [facility] [place] Comment on above: Result Comment: Effe ctive: 12/21/2018 New reference range for this analyte has been established. Performed By: #### L ITH #### [facility] [place] [address] [place] [address] Potassium molar conc 4.4 mmol/L Normal 3.4-4.9 [facility] Comment on above: Result Comment: Effe ctive: 12/21/2018 New reference range for this analyte has been established. Performed By: #### L ITH #### [facility] [place] [address] [place] [address] Sodium molar conc 141 mmol/L Normal 135-144 [facility] [place] Comment on above: Result Comment: Effe ctive: 12/21/2018 New reference range for this analyte has been established. Performed By: #### L ITH #### [facility] [place] [address] [place] [address] Urea nitrogen mass conc 25 mg/dL Critically high 6-20 [facility] [place] Comment on above: Performed By: #### L ITH #### [facility] [place] [address] [place] [address] Valproic Acid /Depakene Leve rahul 03-19-2019 Protein mass conc 62.5 ug/mL Normal 50.0-100.0 [facility] [place] Comment on above: Performed By: #### L ITH #### [facility] [place] [address] [place] [address] Basic Metabolic Panelon 05-0 Anion gap molar conc 14 mmol/L Normal 9-15 [facility] Comment on above: Result Comment: Effe ctive: 12/21/2018 New reference range for this analyte has been established. Performed By: #### L ITH #### [facility] [place] [address] [place] [address] Calcium mass conc 9.1 mg/dL Normal 8.5-9.9 [facility] [place] Comment on above: Result Comment: Effe ctive: 12/21/2018 New reference range for this analyte has been established. Performed By: #### L ITH #### [facility] [place] [address] [place] [address] Chloride molar conc 107 mmol/L Normal 95-107 [facility] [place] Comment on above: Result Comment: Effe ctive: 12/21/2018 New reference range for this analyte has been established. Performed By: #### L ITH #### [facility] [place] [address] [place] [address] CO2 molar conc 22 mmol/L Normal 20-31 [facility] [place] Comment on above: Result Comment: Effe ctive: 12/21/2018 New reference range for this analyte has been established. Performed By: #### L ITH #### [facility] [place] [address] [place] [address] Creatinine mass conc 2.32 mg/dL Critically high 0.70-1.20 [facility] [place] Comment on above: Performed By: #### L ITH #### [facility] [place] [address] [place] [address] GFR/1.73 sq M predicted among blacks MDRD vol rate/area (S/P/Bld) 35.4 mL/min/{1.73_m2} Low >60 [facility] [place] Comment on above: Result Comment: >60 mL/min/1.73m2 EGFR, calc. for ages 18 and older using the MDRD formula (not corrected for weight), is valid for stable renal function. Performed By: #### L ITH #### [facility] [place] [address] [place] [address] GFR/1.73 sq M.predicted MDRD vol rate/area 29.3 mL/min/{1.73_m2} Low >60 [facility] [place] Comment on above: Result Comment: >60 mL/min/1.73m2 EGFR, calc. for ages 18 and older using the MDRD formula (not corrected for weight), is valid for stable renal function. Performed By: #### L ITH #### [facility] [place] [address] [place] [address] Glucose mass conc 97 mg/dL Normal 70-99 [facility] [place] Comment on above: Result Comment: Effe ctive: 12/21/2018 New reference range for this analyte has been established. Performed By: #### L ITH #### [facility] [place] [address] [place] [address] Potassium molar conc 4.5 mmol/L Normal 3.4-4.9 [facility] Comment on above: Result Comment: Effe ctive: 12/21/2018 New reference range for this analyte has been established. Performed By: #### L ITH #### [facility] [place] [address] [place] [address] Sodium molar conc 143 mmol/L Normal 135-144 [facility] [place] Comment on above: Result Comment: Effe ctive: 12/21/2018 New reference range for this analyte has been established. Performed By: #### L ITH #### [facility] [place] [address] [place] [address] Urea nitrogen mass conc 29 mg/dL Critically high 6-20 [facility] [place] Comment on above: Performed By: #### L ITH #### [facility] [place] [address] [place] [address] Basic Metabolic Panelon 05-0 Anion gap molar conc 10 mmol/L Normal 9-15 [facility] Comment on above: Result Comment: Effe ctive: 12/21/2018 New reference range for this analyte has been established. Performed By: #### L ITH #### [facility] [place] [address] [place] [address] Calcium mass conc 8.7 mg/dL Normal 8.5-9.9 [facility] [place] Comment on above: Result Comment: Effe ctive: 12/21/2018 New reference range for this analyte has been established. Performed By: #### L ITH #### [facility] [place] [address] [place] [address] Chloride molar conc 109 mmol/L Critically high 95-107 [facility] [place] Comment on above: Result Comment: Effe ctive: 12/21/2018 New reference range for this analyte has been established. Performed By: #### L ITH #### [facility] [place] [address] [place] [address] CO2 molar conc 24 mmol/L Normal 20-31 [facility] [place] Comment on above: Result Comment: Effe ctive: 12/21/2018 New reference range for this analyte has been established. Performed By: #### L ITH #### [facility] [place] [address] [place] [address] Creatinine mass conc 1.77 mg/dL Critically high 0.70-1.20 [facility] [place] Comment on above: Performed By: #### L ITH #### [facility] [place] [address] [place] [address] GFR/1.73 sq M predicted among blacks MDRD vol rate/area (S/P/Bld) 48.4 mL/min/{1.73_m2} Low >60 [facility] [place] Comment on above: Result Comment: >60 mL/min/1.73m2 EGFR, calc. for ages 18 and older using the MDRD formula (not corrected for weight), is valid for stable renal function. Performed By: #### L ITH #### [facility] [place] [address] [place] [address] GFR/1.73 sq M.predicted MDRD vol rate/area 40.0 mL/min/{1.73_m2} Low >60 [facility] [place] Comment on above: Result Comment: >60 mL/min/1.73m2 EGFR, calc. for ages 18 and older using the MDRD formula (not corrected for weight), is valid for stable renal function. Performed By: #### L ITH #### [facility] [place] [address] [place] [address] Glucose mass conc 95 mg/dL Normal 70-99 [facility] [place] Comment on above: Result Comment: Effe ctive: 12/21/2018 New reference range for this analyte has been established. Performed By: #### L ITH #### [facility] [place] [address] [place] [address] Potassium molar conc 4.8 mmol/L Normal 3.4-4.9 [facility] Comment on above: Result Comment: Effe ctive: 12/21/2018 New reference range for this analyte has been established. Performed By: #### L ITH #### [facility] [place] [address] [place] [address] Sodium molar conc 143 mmol/L Normal 135-144 [facility] [place] Comment on above: Result Comment: Effe ctive: 12/21/2018 New reference range for this analyte has been established. Performed By: #### L ITH #### [facility] [place] [address] [place] [address] Urea nitrogen mass conc 25 mg/dL Critically high 6-20 [facility] [place] Comment on above: Performed By: #### L ITH #### [facility] [place] [address] [place] [address] Ammoniaon 03-12-2019 Ammonia mass conc (P) 20 umol/L Normal 16-60 [facility] Comment on above: Performed By: #### N H3 #### [facility] [place] [address] [place] [address] Basic Metabolic Panelon - Anion gap molar conc 14 mmol/L Normal 9-15 [facility] Comment on above: Result Comment: Effe ctive: 12/21/2018 New reference range for this analyte has been established. Performed By: #### L ITH #### [facility] [place] [address] [place] [address] Calcium mass conc 9.1 mg/dL Normal 8.5-9.9 [facility] [place] Comment on above: Result Comment: Effe ctive: 12/21/2018 New reference range for this analyte has been established. Performed By: #### L ITH #### [facility] [place] [address] [place] [address] Chloride molar conc 109 mmol/L Critically high 95-107 [facility] [place] Comment on above: Result Comment: Effe ctive: 12/21/2018 New reference range for this analyte has been established. Performed By: #### L ITH #### [facility] [place] [address] [place] [address] CO2 molar conc 24 mmol/L Normal 20-31 [facility] [place] Comment on above: Result Comment: Effe ctive: 12/21/2018 New reference range for this analyte has been established. Performed By: #### L ITH #### [facility] [place] [address] [place] [address] Creatinine mass conc 1.94 mg/dL Critically high 0.70-1.20 [facility] [place] Comment on above: Performed By: #### L ITH #### [facility] [place] [address] [place] [address] GFR/1.73 sq M predicted among blacks MDRD vol rate/area (S/P/Bld) 43.6 mL/min/{1.73_m2} Low >60 [facility] [place] Comment on above: Result Comment: >60 mL/min/1.73m2 EGFR, calc. for ages 18 and older using the MDRD formula (not corrected for weight), is valid for stable renal function. Performed By: #### L ITH #### [facility] [place] [address] [place] [address] GFR/1.73 sq M.predicted MDRD vol rate/area 36.0 mL/min/{1.73_m2} Low >60 [facility] [place] Comment on above: Result Comment: >60 mL/min/1.73m2 EGFR, calc. for ages 18 and older using the MDRD formula (not corrected for weight), is valid for stable renal function. Performed By: #### L ITH #### [facility] [place] [address] [place] [address] Glucose mass conc 90 mg/dL Normal 70-99 [facility] [place] Comment on above: Result Comment: Effe ctive: 12/21/2018 New reference range for this analyte has been established. Performed By: #### L ITH #### [facility] [place] [address] [place] [address] Potassium molar conc 4.5 mmol/L Normal 3.4-4.9 [facility] Comment on above: Result Comment: Effe ctive: 12/21/2018 New reference range for this analyte has been established. Performed By: #### L ITH #### [facility] [place] [address] [place] [address] Sodium molar conc 147 mmol/L Critically high 135-144 [facility] Comment on above: Result Comment: Effe ctive: 12/21/2018 New reference range for this analyte has been established. Performed By: #### L ITH #### [facility] [place] [address] [place] [address] Urea nitrogen mass conc 27 mg/dL Critically high 6-20 [facility] [place] Comment on above: Performed By: #### L ITH #### [facility] [place] [address] [place] [address] [place] Levelon 03-12-2019 [place] molar conc 0.8 mmol/L Normal 0.6-1.2 [facility] [place] Comment on above: Performed By: #### L ITH #### [facility] [place] [address] [place] [address] Valproic Acid /Depakene Leve rahul 03-12-2019 Protein mass conc 70.6 ug/mL Normal 50.0-100.0 [facility] [place] Comment on above: Performed By: #### L ITH #### [facility] [place] [address] [place] [address] Basic Metabolic Panelon 02-13 Anion gap molar conc 13 mmol/L Normal 9-15 [facility] Comment on above: Result Comment: Effe ctive: 12/21/2018 New reference range for this analyte has been established. Performed By: #### B MP #### [facility] [place] [address] [place] [address] Calcium mass conc 8.9 mg/dL Normal 8.5-9.9 [facility] [place] Comment on above: Result Comment: Effe ctive: 12/21/2018 New reference range for this analyte has been established. Performed By: #### B MP #### [facility] [place] [address] [place] [address] Chloride molar conc 108 mmol/L Critically high 95-107 [facility] [place] Comment on above: Result Comment: Effe ctive: 12/21/2018 New reference range for this analyte has been established. Performed By: #### B MP #### [facility] [place] [address] [place] [address] CO2 molar conc 23 mmol/L Normal 20-31 [facility] [place] Comment on above: Result Comment: Effe ctive: 12/21/2018 New reference range for this analyte has been established. Performed By: #### B MP #### [facility] [place] [address] [place] [address] Creatinine mass conc 1.82 mg/dL Critically high 0.70-1.20 [facility] [place] Comment on above: Performed By: #### B MP #### [facility] [place] [address] [place] [address] GFR/1.73 sq M predicted among blacks MDRD vol rate/area (S/P/Bld) 46.9 mL/min/{1.73_m2} Low >60 [facility] [place] Comment on above: Result Comment: >60 mL/min/1.73m2 EGFR, calc. for ages 18 and older using the MDRD formula (not corrected for weight), is valid for stable renal function. Performed By: #### B MP #### [facility] [place] [address] [place] [address] GFR/1.73 sq M.predicted MDRD vol rate/area 38.8 mL/min/{1.73_m2} Low >60 [facility] [place] Comment on above: Result Comment: >60 mL/min/1.73m2 EGFR, calc. for ages 18 and older using the MDRD formula (not corrected for weight), is valid for stable renal function. Performed By: #### B MP #### [facility] [place] [address] [place] [address] Glucose mass conc 82 mg/dL Normal 70-99 [facility] [place] Comment on above: Result Comment: Effe ctive: 12/21/2018 New reference range for this analyte has been established. Performed By: #### B MP #### [facility] [place] [address] [place] [address] Potassium molar conc 4.2 mmol/L Normal 3.4-4.9 [facility] Comment on above: Result Comment: Effe ctive: 12/21/2018 New reference range for this analyte has been established. Performed By: #### B MP #### [facility] [place] [address] [place] [address] Sodium molar conc 144 mmol/L Normal 135-144 [facility] [place] Comment on above: Result Comment: Effe ctive: 12/21/2018 New reference range for this analyte has been established. Performed By: #### B MP #### [facility] [place] [address] [place] [address] Urea nitrogen mass conc 28 mg/dL Critically high 6-20 [facility] [place] Comment on above: Performed By: #### B MP #### [facility] [place] [address] [place] [address] Lipid Panelon 03-09-2019 Cholesterol in HDL mass conc 30 mg/dL Low 40-59 [facility] [place] Comment on above: Result Comment: ATP III [...] CHD Performed By: #### L IPID #### [facility] [place] [address] [place] [address] Cholesterol in LDL mass conc 83 mg/dL Normal 0-129 [facility] [place] Comment on above: Result Comment: ATP III LDL Classification is Optimal. Performed By: #### L IPID #### [facility] [place] [address] [place] [address] Cholesterol mass conc 160 mg/dL Normal 0-199 [facility] Comment on above: Result Comment: ATP III Cholesterol classification is Desirable. Performed By: #### L IPID #### [facility] [place] [address] [place] [address] Triglyceride mass conc 234 mg/dL Critically high 0-150 [facility] [place] Comment on above: Result Comment: ATP III Triglycerides Classification is High. Effective: 12/21/2018 New reference range for this analyte has been established. Performed By: #### L IPID #### [facility] [place] [address] [place] [address] Ammoniaon 03-04-2019 Ammonia mass conc (P) 35 umol/L Normal 16-60 [facility] Comment on above: Performed By: #### N H3 #### [facility] [place] [address] [place] [address] [place] Levelon 03-04-2019 [place] molar conc 0.7 mmol/L Normal 0.6-1.2 [facility] [place] Comment on above: Performed By: #### L ITH #### [facility] [place] [address] [place] [address] TSH w/out Reflexon 9 Thyrotropin Qn 2.880 uIU/mL Normal 0.440-3.86 [facility] [place] Comment on above: Result Comment: Effe ctive: 12/21/2018 New reference range for this analyte has been established. Performed By: #### T SH #### [facility] [place] [address] [place] [address] VITAMIN Don 03-04-2019 VITAMIN D 33.1 ng/mL Normal 30.0-100.0 [facility] [place] Comment on above: Result Comment: (30- 100 ng/mL) Optimum Level This assay accurately quantifies the sum of vitamin D3, 25-Hydroxy and vitamin D2, 25-Hyroxy. Performed By: #### V ITD #### [facility] [place] [address] [place] [address] Valproic Acid /Depakene Leve rahul 03-04-2019 Protein mass conc 25.8 ug/mL Low 50.0-100.0 [facility] [place] Comment on above: Performed By: #### V ALPR #### [facility] [place] [address] [place] [address] Vitamin B12 and Folateon Cobalamin (Vitamin B12) mass conc 340 pg/mL Normal 232-1245 [facility] [place] Comment on above: Performed By: #### B 12FO #### [facility] [place] [address] [place] [address] Folate 10.2 ng/mL Normal 7.3-26.1 [facility] [place] Comment on above: Result Comment: As o f 16, the methodology has changed. Results from this methodology should not be compared with results from previous methodology. Performed By: #### B 12FO #### [facility] [place] [address] [place] [address] Creatinineon 06-06-2018 Creatinine 1.93 mg/dL High 0.58-0.96 [facility] Comment on above: Performed By: #### C RET1, TSH, LI ####[facility] [place] [id number] [place] [phone] eGFR (non-black) 27 . Normal [facility] Comment on above: Performed By: #### C RET1, TSH, LI ####[facility] [place] [id number] [place] [phone] eGFR- Amer. 33 Normal [facility] Comment on above: Performed By: #### C RET1, TSH, LI ####[facility] [place] [id number] [place] [phone] Lithiumon 06-06-2018 [place] 0.8 mmol/L Normal 0.6-1.2 [facility] Comment on above: Performed By: #### C RET1, TSH, LI ####[facility] [place] [id number] [place] [phone] TSHon 06-06-2018 Thyroid stimulating hormone (TSH) 2.350 uU/mL Normal 0.400-5.50 0 [facility] Comment on above: Performed By: #### C RET1, TSH, LI ####[facility] [place] [id number] [place], [place] [phone] Culture, urine Bacteria identified Cx Nom (U) Culture exhibits no growth. [facility] Work Phone: Bacteria identified Cx Nom (U) Positive [facility] Work Phone: Bacteria identified Cx Nom (U) Actinomyces turicensis [facility] Work Phone: Bacteria identified Cx Nom (U) Streptococcus mitis [facility] Work Phone: Vital Signs Date Time Vital Sign Value Performing Clinician Facility 02-26-2025 11:40-0400 Diastolic blood pressure 76 mm[Hg] [facility] Work Phone: [facility] 02-26-2025 11:40-0400 Heart rate 75 /min [facility] Work Phone: [facility] 02-26-2025 11:40-0400 Respiratory rate 18 /min [facility] Work Phone: [facility] 02-26-2025 11:40-0400 SaO2% (BldA) [Mass fraction] 96 % [facility] Work Phone: [facility] 02-26-2025 11:40-0400 Systolic blood pressure 122 mm[Hg] [facility] Work Phone: [facility] 02-26-2025 09:00-0400 Body temperature 98.6 [degF] [facility] Work Phone: [facility] 02-12-2025 14:04-0400 Diastolic blood pressure 55 mm[Hg] [facility] Work Phone: [facility] 02-12-2025 14:04-0400 Heart rate 78 /min [facility] Work Phone: [facility] 02-12-2025 14:04-0400 Respiratory rate 18 /min [facility] Work Phone: [facility] 02-12-2025 14:04-0400 SaO2% (BldA) [Mass fraction] 95 % [facility] Work Phone: [facility] 02-12-2025 14:04-0400 Systolic blood pressure 128 mm[Hg] [facility] Work Phone: [facility] 02-12-2025 09:00-0400 Body temperature 98.6 [degF] [facility] Work Phone: [facility] 09-14-2024 08:49-0400 Body height 176.3 cm Dorota Smith MD Work Phone: [facility] 09-14-2024 08:49-0400 Body mass index (BMI) [Ratio] 39.27 kg/m2 Dorota Smith MD Work Phone: [facility] 09-14-2024 08:49-0400 Body temperature 97.3 [degF] Dorota Smith MD Work Phone: [facility] 09-14-2024 08:49-0400 Body weight 122.05 kg Dorota Smith MD Work Phone: [facility] 09-14-2024 08:49-0400 Diastolic blood pressure 65 mm[Hg] Dorota Smith MD Work Phone: [facility] 09-14-2024 08:49-0400 Heart rate 106 /min Dorota Smith MD Work Phone: [facility] 09-14-2024 08:49-0400 Respiratory rate 14 /min Dorota Smith MD Work Phone: [facility] 09-14-2024 08:49-0400 Systolic blood pressure 104 mm[Hg] Dorota Smith MD Work Phone: [facility] 08-09-2024 10:45-0400 Diastolic blood pressure 68 mm[Hg] [facility] Work Phone: [facility] 08-09-2024 10:45-0400 Heart rate 82 /min [facility] Work Phone: [facility] 08-09-2024 10:45-0400 Respiratory rate 18 /min [facility] Work Phone: [facility] 08-09-2024 10:45-0400 SaO2% (BldA) [Mass fraction] 96 % [facility] Work Phone: [facility] 08-09-2024 10:45-0400 Systolic blood pressure 125 mm[Hg] [facility] Work Phone: [facility] 08-09-2024 07:00-0400 Body temperature 98.4 [degF] [facility] Work Phone: [facility] 07-17-2024 11:09-0400 Body height 182.9 cm Anthony Olivares MD Work Phone: [facility] 07-17-2024 11:09-0400 Body mass index (BMI) [Ratio] 36.48 kg/m2 Anthony Olivares MD Work Phone: [facility] 07-17-2024 11:09-0400 Body weight 122 kg Anthony Olivares MD Work Phone: [facility] 07-17-2024 11:09-0400 Diastolic blood pressure 73 mm[Hg] Anthony Olivares MD Work Phone: [facility] 07-17-2024 11:09-0400 Heart rate 90 /min Anthony Olivares MD Work Phone: [facility] 07-17-2024 11:09-0400 Systolic blood pressure 106 mm[Hg] Anthony Olivares MD Work Phone: [facility] 01-26-2024 12:00-0400 Diastolic blood pressure 62 mm[Hg] [facility] Work Phone: [facility] 01-26-2024 12:00-0400 Heart rate 97 /min [facility] Work Phone: [facility] 01-26-2024 12:00-0400 Respiratory rate 18 /min [facility] Work Phone: [facility] 01-26-2024 12:00-0400 SaO2% (BldA) [Mass fraction] 96 % [facility] Work Phone: [facility] 01-26-2024 12:00-0400 Systolic blood pressure 110 mm[Hg] [facility] Work Phone: [facility] 01-26-2024 07:05-0400 Body temperature 98.6 [degF] [facility] Work Phone: [facility] 12-20-2023 09:51-0500 Body height 177.8 cm Anthony Olivares MD Work Phone: [facility] 12-20-2023 09:51-0500 Body temperature 97.7 [degF] Anthony Olivares MD Work Phone: [facility] 12-20-2023 09:51-0500 Body weight 126.4 kg Anthony Olivares MD Work Phone: [facility] 12-20-2023 09:51-0500 Diastolic blood pressure 68 mm[Hg] Anthony Olivares MD Work Phone: [facility] 12-20-2023 09:51-0500 Heart rate 116 /min Anthony Olivares MD Work Phone: [facility] 12-20-2023 09:51-0500 Systolic blood pressure 97 mm[Hg] Anthony Olivares MD Work Phone: [facility] 02-25-2023 11:04-0400 Body height 171.5 cm Luz Daniel MD Work Phone: [facility] 02-25-2023 11:04-0400 Body temperature 97.9 [degF] Luz Daniel MD Work Phone: [facility] 02-25-2023 11:04-0400 Body weight 146.69 kg Luz Daniel MD Work Phone: [facility] 02-25-2023 11:04-0400 Diastolic blood pressure 86 mm[Hg] Luz Daniel MD Work Phone: [facility] 02-25-2023 11:04-0400 Heart rate 93 /min Luz Daniel MD Work Phone: [facility] 02-25-2023 11:04-0400 Systolic blood pressure 125 mm[Hg] Luz Daniel MD Work Phone: [facility] 11-03-2022 13:05-0500 Body temperature 97.2 [degF] Guki 2 Work Phone: [facility] 11-03-2022 13:05-0500 Diastolic blood pressure 78 mm[Hg] Guki 2 Work Phone: [facility] 11-03-2022 13:05-0500 Heart rate 89 /min Guki 2 Work Phone: [facility] 11-03-2022 13:05-0500 Respiratory rate 18 /min Guki 2 Work Phone: [facility] 11-03-2022 13:05-0500 SaO2% (BldA) [Mass fraction] 95 % [place] 2 Work Phone: [facility] 11-03-2022 13:05-0500 Systolic blood pressure 124 mm[Hg] [place] 2 Work Phone: [facility] 11-03-2022 07:52-0500 Body weight 144.74 kg [place] 2 Work Phone: [facility] 08-27-2022 10:46-0400 Body height 171.5 cm Luz Daniel MD Work Phone: [facility] 08-27-2022 10:46-0400 Body temperature 98.29 [degF] Luz Daniel MD Work Phone: [facility] 08-27-2022 10:46-0400 Body weight 146.06 kg Luz Daniel MD Work Phone: [facility] 08-27-2022 10:46-0400 Diastolic blood pressure 95 mm[Hg] Luz Daniel MD Work Phone: [facility] 08-27-2022 10:46-0400 Heart rate 109 /min Luz Daniel MD Work Phone: [facility] 08-27-2022 10:46-0400 Systolic blood pressure 132 mm[Hg] Luz Daniel MD Work Phone: [facility] 07-27-2022 15:53-0400 Body height 176.5 cm Anthony Olivares MD Work Phone: [facility] 07-27-2022 15:53-0400 Body weight 142.88 kg Anthony Olivares MD Work Phone: [facility] 07-27-2022 15:53-0400 Diastolic blood pressure 85 mm[Hg] Anthony Olivares MD Work Phone: [facility] 07-27-2022 15:53-0400 Heart rate 94 /min Anthony Olivares MD Work Phone: [facility] 07-27-2022 15:53-0400 Systolic blood pressure 128 mm[Hg] Anthony Olivares MD Work Phone: [facility] 05-05-2022 13:15-0400 Body temperature 97.2 [degF] Kidney 1 [facility] 05-05-2022 13:15-0400 Diastolic blood pressure 91 mm[Hg] Kidney 1 [facility] 05-05-2022 13:15-0400 Heart rate 116 /min Kidney 1 [facility] 05-05-2022 13:15-0400 Systolic blood pressure 157 mm[Hg] Kidney 1 [facility] 05-05-2022 07:40-0400 SaO2% (BldA) [Mass fraction] 95 % Kidney 1 [facility] 05-05-2022 07:36-0400 Body weight 140.57 kg Kidney 1 [facility] 11-04-2020 15:52-0500 Body Temperature 97.2 [degF] [facility] [place] 11-04-2020 15:52-0500 BP Diastolic 74 mm[Hg] [facility] [place] 11-04-2020 15:52-0500 BP Systolic 113 mm[Hg] [facility] [place] 11-04-2020 15:52-0500 Pulse (Heart Rate) 92 /min [facility] 11-04-2020 15:52-0500 Pulse Oximetry 96 % [facility] [place] 11-04-2020 15:52-0500 Respiratory Rate 17 /min [facility] 11-04-2020 05:31-0500 Body weight 114.31 kg Ot[facility] [place] Encounters Encounter Date Encounter Type Care Provider Facility Start: 06-20-2025 ambulatory Alfredo CHANDLER Faci lity:[facility] Start: 06-19-2025 ambulatory Alfredo Lexiiangi CHANDLER Faci lity:[facility] Start: 06-06-2025 End: 06-06-2025 ambulatory Julieta Luo RN Kidney Medicine [facility] Start: 06-05-2025 ambulatory Adam CHANDLER Fac ility:[facility] Start: 05-28-2025 ambulatory Adam CHANDLER Fac ility:[facility] Start: 05-26-2025 ambulatory Adam CHANDLER Fac ility:[facility] Start: 05-24-2025 ambulatory Adam CHANDLER Fac ility:[facility] Start: 05-23-2025 End: 05-23-2025 Telemedicine consultation with patient Anthony Olivares MD Work Phone: Kidney Medicine [facility] Start: 05-23-2025 End: 05-27-2025 ambulatory Anthony Olivares MD Work Phone: Kidney Medicine [facility] Comment on above: 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); Stage 3b chronic kidney disease (HCC) Start: 05-02-2025 ambulatory Adam Ferraro RAMESH Fac ility:[facility] Start: 05-02-2025 Registered Referred Adam Ferraro -[facility] [employer] Start: 04-26-2025 ambulatory Alfredo CHANDLER Faci lity:[facility] Start: 04-26-2025 Registered Referred Alferdo Phipps - [facility] [employer] [facility] Start: 04-24-2025 ambulatory Adam Ferraro RAMESH Fac ility:[facility] Start: 04-24-2025 Registered Referred Adam Ferraro -[facility] [employer] Start: 04-01-2025 End: 04-01-[address] Elgin Bal MD Work Phone: -[facility] [employer] Start: 04-01-2025 End: 04-01-2025 Departed Referred Adam Ferraro -[facility] [employer] Start: 04-01-2025 End: 04-01-2025 ambulatory Adam CHANDLER Facility:[facility] Start: 03-27-2025 ambulatory lEgin Bal Facility:[facility] Start: 03-27-2025 Registered Referred Alfredo Martinez [facility] [employer] Start: 03-04-2025 End: 03-04-[address] Elgin Bal MD Work Phone: [facility] Work Phone: Start: 03-04-2025 End: 03-04-2025 Departed Referred Adam Ferraro -[facility] [employer] Start: 03-04-2025 Registered Referred Adam Ferraro -[facility] [employer] Start: 03-04-2025 End: 03-04-2025 ambulatory Adam CHANDLER Facility:[facility] Start: 02-27-2025 End: 02-27-[address] Elgin Bal MD Work Phone: [facility] Work Phone: Start: 02-27-2025 End: 02-27-2025 Departed Referred Alfredo [facility] [employer] Start: 02-27-2025 Registered Referred Alfredo Martinez [facility] [employer] Start: 02-26-2025 End: 02-27-2025 ambulatory ANTHONY OLIVARES Facility:[facility] Start: 02-26-2025 End: 02-26-2025 Subsequent hospital visit by physician Chair [facility] Work Phone: [facility] Start: 02-25-2025 End: 02-25-[address] Elgin Bal MD Work Phone: [facility] Work Phone: Start: 02-25-2025 End: 02-25-2025 Departed Referred Adam Ferraro -[facility] [employer] Start: 02-25-2025 Registered Referred Adam Jasmine -[facility] [employer] Start: 02-25-2025 End: 02-25-2025 ambulatory Adam CHANDLER Facility:[facility] Start: 02-12-2025 ambulatory ANTHONY OLIVARES Facility: [facility] Start: 02-12-2025 End: 02-12-2025 Subsequent hospital visit by physician Chair [facility] Work Phone: [facility] Start: 02-11-2025 End: 02-11-[address] Elgin Bal MD Work Phone: [facility] Work Phone: Start: 02-11-2025 End: 02-11-2025 Departed Referred Alfredo Katsaros -[facility] [employer] Start: 02-11-2025 Registered Referred Alfredo Katsaros - [facility] [employer] Start: 02-11-2025 End: 02-11-2025 ambulatory Elgin [place] Facility:[facility] Start: 02-06-2025 End: 02-06-[address] Elgin Bal MD Work Phone: [facility] Work Phone: Start: 02-06-2025 End: 02-06-2025 Departed Referred Peter Katsaros -[facility] [employer] Start: 02-06-2025 Registered Referred Peter Katsaros - [facility] [employer] Start: 02-06-2025 End: 02-06-2025 ambulatory Elgin [place] Facility:[facility] Start: 01-30-2025 End: 01-30-2025 Departed Referred Adam Jasmine -[facility] [employer] Start: 01-30-2025 End: 01-30-2025 Orders Only Anthony Olivares MD Work Phone: [facility] Start: 01-30-2025 Registered Referred Adam Ferraro -[facility] [employer] Start: 01-30-2025 End: 01-30-2025 ambulatory Adam CHANDLER Facility:[facility] Start: 01-25-2025 End: 01-25-[address] Elgin Bal MD Work Phone: [facility] Work Phone: Start: 01-25-2025 End: 01-25-2025 Departed Referred Adam Ferraro -[facility] [employer] Start: 01-25-2025 End: 01-25-2025 ambulatory Adam Wandamele RAMESH Facility:[facility] Start: 01-03-2025 End: 01-03-[address] Elgin Bal MD Work Phone: [facility] Work Phone: Start: 01-03-2025 End: 01-03-2025 Departed Referred Adam Gunning -[facility] [employer] Start: 01-03-2025 Registered Referred Adam Gunning -[facility] [employer] Start: 01-02-2025 End: 01-03-[address] Elgin Bal MD Work Phone: [facility] Work Phone: Start: 01-02-2025 End: 01-02-2025 Departed Referred [facility] Start: 01-02-2025 Registered Referred [facility] Start: 01-02-2025 End: 01-02-2025 ambulatory Adam CHANDLER Facility:[facility] Start: 12-28-2024 End: 12-28-[address] Elgin Bal MD Work Phone: [facility] Work Phone: Start: 12-28-2024 End: 12-28-2024 Departed Referred Adam Jasmine [facility] Start: 12-28-2024 End: 12-28-2024 ambulatory [facility] Facility:[facility] Start: 11-27-2024 End: 11-27-2024 Departed Referred [facility] Start: 11-27-2024 End: 11-27-2024 ambulatory [facility] Facility:[facility] Start: 11-20-2024 End: 11-23-2024 ambulatory Anthony Olivares MD Work Phone: [facility] Start: 11-15-2024 End: 11-15-2024 Departed Referred [facility] Start: 11-15-2024 End: 11-15-2024 ambulatory [facility] Facility:[facility] Start: 09-27-2024 End: 09-27-2024 Departed Referred Adam Ferr[facility] Start: 09-27-2024 End: 09-27-2024 ambulatory [facility] Facility:[facility] Start: 09-14-2024 End: 09-14-2024 Patient encounter procedure Dorota Smith MD Work Phone: [facility] Comment on above: 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); Rash and nonspecific skin eruption; 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) Start: 09-14-2024 End: 09-14-2024 ambulatory ALFREDO PHIPPS Facility:[facility] Start: 09-12-2024 End: 09-12-2024 ambulatory [facility] Facility:[facility] Start: 08-27-2024 End: 08-27-2024 ambulatory [facility] Facility:[facility] Start: 08-10-2024 ambulatory [facility] Facility:[facility] Start: 08-09-2024 ambulatory ANTHONY OLIVARES Facility: [facility] Start: 08-09-2024 End: 08-09-2024 Subsequent hospital visit by physician Chair 1 [facility] Work Phone: Infusion Center Comment on above: Rituximab Start: 07-31-2024 End: 07-31-2024 ambulatory [facility] Facility:[facility] Start: 07-17-2024 End: 07-17-2024 Patient encounter procedure Anthony Olivares MD Work Phone: [facility] Comment on above: 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); Stage 3b chronic kidney disease (HCC); Benign hypertension with chronic kidney disease Start: 07-17-2024 End: 07-20-2024 ambulatory Anthony Olivares MD Work Phone: [facility] Start: 06-29-2024 End: 06-29-2024 ambulatory Adam CHANDLER Facility:[facility] Start: 06-27-2024 End: 06-27-2024 ambulatory Alfredo CHANDLER Facility:[facility] Start: 06-22-2024 End: 06-22-2024 ambulatory Adam CHANDLER Facility:[facility] Start: 05-21-2024 Telephone encounter Dorota hameed MD Work Phone: [facility] Comment on [...] kidney disease Start: 02-03-2024 End: 02-03-2024 ambulatory [facility] Work Phone: Start: 02-03-2024 End: 02-03-2024 Departed Referred [facility] Start: 01-26-2024 End: 01-26-2024 Subsequent hospital visit by physician Chair 1 [facility] Work Phone: Infusion Center Comment on above: Rituximab Start: 01-06-2024 End: 01-06-2024 ambulatory [facility] Work Phone: Start: 01-06-2024 End: 01-06-2024 Departed Referred [facility] Start: 12-29-2023 Orders Only Babak Drummond RN Infusio n Center Start: 12-27-2023 Orders Only Anthony Olivares MD Work Phone: [facility] [place] Start: 12-23-2023 Telephone encounter Nuria noyola RN Kidney Medicine Comment on above: Appointment Start: 12-20-2023 ambulatory Anthony Olivares MD Work Phone: [facility] [place] Start: 12-20-2023 End: 12-20-2023 Patient encounter procedure Anthony Olivares MD Work Phone: [facility] [place] Comment on above: 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); Stage 3b chronic kidney disease (HCC); Benign hypertension with chronic kidney disease Start: 12-09-2023 End: 12-09-2023 ambulatory [facility] Work Phone: Start: 12-09-2023 End: 12-09-2023 [facility] Start: 11-16-2023 End: 11-16-2023 [facility] Start: 11-16-2023 [facility] Start: 11-11-2023 End: 11-11-2023 ambulatory [facility] Work Phone: Start: 11-11-2023 End: 11-11-2023 [facility] Start: 11-11-2023 [facility] Start: 10-27-2023 End: 10-27-2023 ambulatory [facility] Work Phone: Start: 10-27-2023 End: 10-27-2023 [facility] Start: 10-14-2023 End: 10-14-2023 ambulatory [facility] Work Phone: Start: 10-14-2023 End: 10-14-2023 [facility] Start: 09-27-2023 End: 09-27-2023 ambulatory [facility] Work Phone: Start: 09-27-2023 End: 09-27-2023 Departed Referred [facility] [employer] Start: 09-27-2023 Registered Referred [facility] Start: 09-16-2023 End: 09-16-2023 ambulatory [facility] Work Phone: Start: 09-16-2023 End: 09-16-2023 [facility] Start: 08-29-2023 Telephone encounter Dorota hameed MD Work Phone: [facility] Comment on above: Patient Update Start: 08-26-2023 Telephone encounter Luz Daniel MD Work Phone: [facility] [place] Comment on above: NO SHOW Start: 08-19-2023 End: 08-19-2023 ambulatory [facility] Work Phone: Start: 08-19-2023 End: 08-19-2023 [facility] Start: 07-28-2023 End: 07-28-2023 [facility] Start: 07-28-2023 [facility] Start: 07-24-2023 [facility] Start: 07-22-2023 End: 07-22-2023 ambulatory [facility] Work Phone: Start: 07-22-2023 End: 07-22-2023 [facility] Start: 06-24-2023 End: 06-24-2023 ambulatory [facility] Work Phone: Start: 06-24-2023 End: 06-24-2023 [facility] Start: 06-24-2023 [facility] Start: 05-30-2023 End: 05-30-2023 ambulatory [facility] Work Phone: Start: 05-30-2023 End: 05-30-2023 [facility] Start: 05-30-2023 [facility] Start: 05-27-2023 End: 05-27-2023 ambulatory [facility] Work Phone: Start: 05-27-2023 End: 05-27-2023 [facility] [employer] Start: 05-27-2023 [facility] Start: 05-19-2023 End: 05-19-2023 ambulatory [facility] Work Phone: Start: 05-19-2023 End: 05-19-2023 [facility] [employer] [facility] Start: 05-19-2023 [facility] Start: 04-29-2023 End: 04-29-2023 ambulatory [facility] Work Phone: Start: 04-29-2023 End: 04-29-2023 [facility] Start: 04-29-2023 [facility] [employer] [facility] Start: 04-27-2023 End: 04-27-2023 ambulatory [facility] Work Phone: Start: 04-27-2023 End: 04-27-2023 [facility] [employer] [facility] Start: 04-04-2023 End: 04-04-2023 [facility] Start: 04-01-2023 End: 04-01-2023 [facility] Start: 03-04-2023 End: 03-04-2023 ambulatory [facility] Work Phone: Start: 03-04-2023 End: 03-04-2023 [facility] Start: 02-25-2023 End: 02-25-2023 Patient encounter procedure Luz Daniel MD Work Phone: [facility] [place] Comment on above: Rheumatoid arthritis involving both hands 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 rheumatoid factor (HCC) (Primary Dx); 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) Start: 02-25-2023 End: 02-25-2023 ambulatory [facility] Work Phone: Start: 02-25-2023 End: 02-25-2023 [facility] Start: 02-04-2023 End: 02-04-2023 ambulatory [facility] Work Phone: Start: 02-04-2023 End: 02-04-2023 [facility] Start: 02-04-2023 [facility] Start: 01-25-2023 End: 01-25-2023 ambulatory [facility] Work Phone: Start: 01-25-2023 End: 01-25-2023 [facility] Start: 01-25-2023 [facility] Start: 01-19-2023 End: 01-19-2023 [facility] Start: 01-19-2023 [facility] Start: 01-07-2023 End: 01-07-2023 ambulatory [facility] Work Phone: Start: 01-07-2023 End: 01-07-2023 [facility] Start: 01-07-2023 [facility] Start: 12-28-2022 End: 12-28-2022 ambulatory [facility] Work Phone: Start: 12-28-2022 End: 12-28-2022 [facility] Start: 12-28-2022 [facility] Start: 12-15-2022 End: 12-15-2022 [facility] Start: 12-15-2022 [facility] Start: 12-10-2022 End: 12-10-2022 ambulatory [facility] Work Phone: Start: 12-10-2022 End: 12-10-2022 [facility] Start: 11-17-2022 End: 11-17-2022 ambulatory [facility] Work Phone: Start: 11-17-2022 End: 11-17-2022 [facility] Start: 11-17-2022 [facility] Start: 11-12-2022 End: 11-12-2022 [facility] Start: 11-12-2022 [facility] Start: 11-03-2022 End: 11-03-2022 Patient encounter procedure [facility] Chair 1 [facility] Medicine Comment on above: 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) Start: 11-02-2022 Orders Only Adam Tee MD Work Phone: [facility] [place] Comment on above: 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) Start: 10-27-2022 End: 10-27-2022 ambulatory [facility] Work Phone: Start: 10-27-2022 End: 10-27-2022 [facility] Start: 10-27-2022 [facility] Start: 10-15-2022 End: 10-15-2022 [facility] Start: 10-15-2022 [facility] Start: 09-27-2022 End: 09-27-2022 ambulatory [facility] Work Phone: Start: 09-27-2022 End: 09-27-2022 [facility] Start: 09-27-2022 Registered Referred [facility] Start: 09-17-2022 End: 09-17-2022 ambulatory [facility] Work Phone: Start: 09-17-2022 End: 09-17-2022 Departed Referred [facility] [employer] Start: 09-17-2022 [facility] Start: 08-27-2022 End: 08-27-2022 Patient encounter procedure Luz Daniel MD Work Phone: [facility] [place] Comment on above: Rheumatoid arthritis involving both hands 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 rheumatoid factor (HCC) (Primary Dx) Start: 08-27-2022 End: 08-27-2022 Departed Referred [facility] Start: 08-27-2022 [facility] Start: 08-23-2022 End: 08-23-2022 ambulatory [facility] Work Phone: Start: 08-23-2022 End: 08-23-2022 [facility] Start: 08-23-2022 [facility] Start: 08-12-2022 End: 08-12-2022 ambulatory [facility] Work Phone: Start: 08-12-2022 End: 08-12-2022 [facility] Start: 07-28-2022 End: 07-28-2022 ambulatory [facility] Work Phone: Start: 07-28-2022 End: 07-28-2022 Departed Referred [facility] [employer] Start: 07-28-2022 Registered Referred [facility] [employer] Start: 07-27-2022 End: 07-27-2022 Patient encounter procedure Anthony Olivares MD Work Phone: [facility] Comment on above: 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); Stage 3a chronic kidney disease (HCC) Start: 07-27-2022 ambulatory Anthony Olivares MD Work Phone: [facility] Start: 07-15-2022 End: 07-15-2022 ambulatory [facility] Work Phone: Start: 07-15-2022 End: 07-15-2022 Departed Referred [facility] [employer] Start: 07-15-2022 Registered Referred [facility] Start: 06-28-2022 End: 06-28-2022 ambulatory [facility] Work Phone: Start: 06-28-2022 End: 06-28-2022 Departed Referred [facility] Start: 06-28-2022 Registered Referred [facility] Start: 06-17-2022 End: 06-17-2022 ambulatory [facility] Work Phone: Start: 06-17-2022 End: 06-17-2022 Departed Referred [facility] [place] [facility] Start: 05-27-2022 End: 05-27-2022 Departed Referred [facility] Start: 05-20-2022 End: 05-20-2022 Departed Referred [facility] Start: 05-05-2022 Patient encounter procedure Anthony Olivares MD Work Phone: [facility] Comment on above: Granulomatosis with polyangiitis [...] (HCC) Start: 04-27-2022 End: 04-27-2022 Departed Referred [facility] [employer] Start: 04-27-2022 Registered Referred [facility] [employer] Start: 04-22-2022 End: 04-22-2022 Departed Referred [facility] [employer] Start: 04-22-2022 Registered Referred [facility] [employer] Start: 04-21-2022 End: 04-21-2022 Departed Referred [facility] [employer] Start: 04-21-2022 Registered Referred [facility] Start: 04-06-2022 End: 04-06-2022 Departed Referred [facility] [employer] Start: 04-06-2022 Registered Referred [facility] [employer] Start: 04-05-2022 End: 04-05-2022 Departed Referred [facility] [employer] Start: 04-05-2022 Registered Referred [facility] [employer] Start: 04-02-2022 End: 04-02-2022 Departed Referred [facility] [employer] Start: 04-02-2022 Registered Referred [facility] [employer] Start: 03-30-2022 Orders Only Anthony Olivares MD Work Phone: [facility] [place] Comment on above: Granulomatosis with polyangiitis, unspecified whether renal involvement (HCC) (Primary Dx) Start: 03-25-2022 End: 03-25-2022 Departed Referred [facility] [employer] Start: 03-25-2022 Registered Referred [facility] [employer] Start: 03-19-2022 End: 03-19-2022 Departed Referred [facility] [employer] Start: 03-19-2022 Registered Referred [facility] [employer] Start: 02-25-2022 End: 02-25-2022 [facility] [facility] Start: 02-25-2022 Registered Referred [facility] [employer] Start: 02-18-2022 End: 02-18-2022 [facility] Start: 01-28-2022 End: 01-28-2022 Departed Referred [facility] [employer] Start: 01-28-2022 Registered Referred [facility] [employer] Start: 01-25-2022 End: 01-25-2022 Departed Referred [facility] [employer] Start: 01-25-2022 Registered Referred [facility] [employer] Start: 01-04-2022 End: 01-04-2022 [facility] Start: 01-04-2022 [facility] [employer] [facility] Start: 12-07-2021 End: 12-07-2021 [facility] [facility] Start: 12-03-2021 Registered Referred [facility] [employer] Start: 11-09-2021 [facility] [employer] Start: 11-05-2021 [facility] [employer] Start: 10-28-2020 End: 11-04-2020 Evaluation and management of inpatient Otf Long Work Phone: [facility] [employer] Comment on above: Pneumonia due to COV ID-19 virus (Primary Dx); Hypoxia; Hypokalemia; Stage 3 chronic kidney disease, unspecified whether stage 3a or 3b CKD Start: 11-14-2019 Encounter for genera l adult medical examination without abnormal findings [facility] Start: 11-14-2019 End: 08-05-2020 Patient encounter procedure HODA BROWNING [facility] Start: 08-06-2019 End: 08-06-2019 Patient encounter procedure HODA BROWNING [facility] Start: 10-21-2009 End: 01-29-2013 Patient encounter status Ronny Polanco MD Work Phone: [facility] Encounter for genera l adult medical examination without abnormal findings [facility] Procedures Date Procedure Procedure Detail Performing Clinician Start: 05-02-[address] [address] Elgin Bal MD Work Phone: Start: 04-24-[address] Elgin Bal MD Work Phone: Start: 04-24-2025 Serum inorganic phos phate measurement Dr. Elgin Bal MD Work Phone: Start: 04-01-[address] Elgin Bal MD Work Phone: Start: 02-27-[address] Elgin Bal MD Work Phone: Start: 01-30-[address] Elgin Bal MD Work Phone: Start: 01-03-[address] Elgin Bal MD Work Phone: Start: 01-03-2025 Urine microalbumin/creatinine ratio measurement Dr. Elgin Bal MD Work Phone: Comment on above: Test not performed Start: 01-02-2025 Assay of phosphorus inorganic Dr. Elgin Bal MD Work Phone: Start: 01-02-[address] Elgin Bal MD Work Phone: [...] 05-05-2022 Radex foot complete minimum 3 views Indervincent Daniel MD Work Phone: Start: 04-22-2022 Urine [...] w/le ast 12 lds w/i&r Imola K Patrickpay Work Phone: Start: 10-31-2020 Assay of ferritin [...] 10-29-2020 Drug screen quantita tive lithium Farrukh Diaz Work Phone: Start: 10-29-2020 Fibrin dgradj produc ts d-dimer quantitative Imola K Emily Work Phone: Start: 10-29-2020 Fibrinogen activity [place] K [employer] Work Phone: Start: 10-29-2020 Thromboplastin time partial plasma/whole blood Imola K Emily Work Phone: Start: 10-29-2020 25 hydroxy includes fractions if performed Immayra K [employer] Work Phone: Start: 10-29-2020 Assay of ferritin Farrukh K [employer] Work Phone: Start: 10-29-2020 Blood count complete auto&auto difrntl wbc Farrukh K Emily Work Phone: Start: 10-29-2020 C-reactive protein Imol a K Emily Work Phone: Start: 10-29-2020 Fibrin dgradj produc ts d-dimer quantitative Farrukh Diaz Work Phone: Start: 10-29-2020 Fibrinogen activity [place] Jeremy Diaz Work Phone: Start: 10-29-2020 Lactate dehydrogenase ldh Farrukh K Emily Work Phone: Start: 10-29-2020 Procalcitonin (pct) Imo la Jeremy Diaz Work Phone: Start: 10-28-2020 Urnls dip stick/tabl et rgnt auto w/o microscopy Andrew Silver Work Phone: Start: 10-28-2020 POCT ARTERIAL Otf Terra zendejaslucio Work Phone: Start: 10-28-2020 Assay of lactate Andrew Silver Work Phone: Start: 10-28-2020 Assay of troponin quantitative Andrew Silver Work Phone: Start: 10-28-2020 Blood count complete auto&auto difrntl wbc Andrew Silver Work Phone: Start: 10-28-2020 Comprehensive metabo lic panel Andrew Silver Work Phone: Start: 10-28-2020 Natriuretic peptide Bruce johnny Silver Work Phone: Start: 10-28-2020 Ecg routine ecg w/le ast 12 lds w/i&r Andrew Silver Work Phone: Start: 10-28-2020 Radiologic exam ches t single view Andrew Silver Work Phone: Start: 10-28-2020 RESPIRATORY PANEL, MOLECULAR, WITH COVID-19 Imola K Emily Work Phone: Start: 05-05-2020 Urinalysis HODA WYATT Comment on above: Result Comment: URIN ALYSIS Performed By: #### [id number] #### [place] [id number] Start: 04-08-2020 Urinalysis HODA WYATT Comment on above: Result Comment: URIN ALYSIS Performed By: #### [id number] #### [place] [id number] Start: 02-04-2020 Urinalysis HODA WYATT Comment on above: Result Comment: URIN ALYSIS Performed By: #### [id number] #### [place] [id number] Start: 01-07-2020 Urinalysis HODA WYATT Comment on above: Result Comment: URIN ALYSIS Performed By: #### [id number] #### [place] [id number] Start: 12-10-2019 Urinalysis HODA WYATT Comment on above: Result Comment: URIN ALYSIS Performed By: #### [id number] #### [place] [id number] Start: 11-05-2019 Urinalysis HODA WYATT Comment on above: Result Comment: URIN ALYSIS Performed By: #### [id number] #### [place] [id number] Start: 10-08-2019 Urinalysis HODA WYATT Comment on above: Result Comment: URIN ALYSIS Performed By: #### [id number] #### [place] [id number] Start: 09-10-2019 Urinalysis HODA WYATT Comment on above: Result Comment: URIN ALYSIS Performed By: #### [id number] #### [place] [id number] Start: 08-10-2019 Adult depression scr eening assessment Anthony Olivares MD Work Phone: Start: 08-06-2019 Urinalysis HODA EASLEY YOSELIN Comment on above: Result Comment: URIN ALYSIS Performed By: #### [id number] #### [place] [id number] Start: 07-23-2019 Colonoscopy Anthony rosa MD Work Phone: Start: 08-09-2018 Lipid 1996 panel - S ellen or Plasma Luz Daniel MD Work Phone: Urine culture Urine culture Plan of Treatment Date Care Activity Detail Author Start: 12-20-2028 Lipid panel Lipid Screening [facility] Start: 12-20-2026 Diabetes Screening Diabetes Screenin g [facility] Start: 09-16-2025 End: 09-16-2025 Patient encounter procedure 09/16/2025 9:00 AM EST Office Visit [facility] [place] [facility] [address] [place], [place] [id number] Dorota Smith MD [address] [place] [address] 6 months in office PA [facility] Comment on above: 6 months in office P A Start: 09-14-2025 BP Controlled (<130/80) BP Controlle d (<130/80) [facility] Start: 08-15-2025 End: 08-15-2025 Patient encounter procedure 08/15/2025 2:20 PM EDT Office Visit [facility] [address] [place] [id number] Anthony Olivares MD [address] [place] [address] f/u [facility] Comment on above: f/u Start: 07-17-2025 BP Controlled (<130/80) BP Controlle d (<130/80) [facility] Start: 07-15-2025 Influenza vaccination Influenza Vacc ine (#1) [facility] Start: 05-23-2025 End: 05-23-2025 Patient encounter procedure 05/23/2025 4:00 PM EDT Office Visit [facility] [address] [address] Anthony Olivares MD [address] [place] [address] Virtual f/u per Dr Olivares.I spoke with Nursing Facility where patient is at [facility] Comment on above: Virtual f/u per Dr Leonie herrera.I spoke with Nursing Facility where patient is at Start: 03-20-2025 End: 03-20-2025 Patient encounter procedure 03/20/2025 9:00 AM EDT Office Visit [facility] [address] [facility] [address] [place], [place] [address] Leeann Lopez PA-C [address] [place], [place] [id number] 6 months in office PA [facility] Comment on above: 6 months in office P A Start: 02-26-2025 End: 02-26-2025 Patient encounter procedure 02/26/2025 9:00 AM EDT Appointment [facility]fusion [facility] [address] [place] [id number] Dr Ignacio Jack, granulomatosis, () Infusion Center Comment on above: Dr Ignacio Jack, granulomatosis, () Start: 02-20-2025 Covid-19 Vaccine (9 - Pfizer risk ) Covid-19 Vaccine (9 - Pfizer risk ) [facility] Start: 12-20-2024 BP Controlled (<130/80) BP Controlle d (<130/80) [facility] Start: 12-20-2024 Complete blood count Hemoglobin/Timo tocrit [facility] Start: 12-20-2024 Creatinine measurement Serum Creatin ine [facility] Start: 11-20-2024 End: 11-20-2024 Patient encounter procedure 11/20/2024 11:00 AM EST Office Visit [facility] [address] [address] Anthony Olivares MD [address] [place] [address] follow up in October per Dr Olivares Kidney Medicine [facility] Comment on above: follow up in per Dr Olivares Start: 11-14-2024 Medicare Advantage Annual Wellness Visit Medicare Advantage Annual Wellness Visit [facility] Start: 10-17-2024 Covid-19 Vaccine () Covid-19 Vaccine () [facility] Start: 09-14-2024 End: 09-14-2024 Patient encounter procedure 09/14/2024 9:00 AM EDT Office Visit [facility] [place] [facility] [address] [place], [place] [phone] Dorota Smith MD [address] [place], [place] [phone] RA/Trans from Dr Daniel to Yovani [facility] [place] [facility] Comment on above: RA/Trans from Dr Ruben welsh to Yovani Start: 08-09-2024 End: 08-09-2024 Patient encounter procedure 08/09/2024 7:00 AM EDT Appointment Infusion Center [address] [place] [address] rituximab, ignacio Dumont(RK) Infusion Center Comment on above: Julia huang simon(RK) Start: 07-17-2024 End: 07-17-2024 Patient encounter procedure 07/17/2024 11:20 AM EDT Office Visit [facility] [address] [address] Anthony Olivares MD [address] [place] [address] Vasculitis Renal follow up [facility] Comment on above: Vasculitis Renal fol low up Start: 07-15-2024 Covid-19 Vaccine ( season) Covid-19 Vaccine ( season) [facility] Start: 07-15-2024 Covid-19 Vaccine ( season) Covid-19 Vaccine () [facility] Start: 07-15-2024 Influenza vaccination Influenza Vacc ine (#1) [facility] Start: 05-21-2024 End: 05-21-2024 Patient encounter procedure 05/21/2024 9:20 AM EDT Office Visit [facility] Rhe[facility]ology [facility] Arthritis [address] [place], [place] [address] Dorota Smith MD [address] [place], [place] [address] RA/Trans from Dr Daniel to Smith [facility] Comment on above: RA/Trans from Dr Ruben welsh to Yovani Start: 03-09-2024 Lipid panel Lipid Screening [facility] Start: 02-21-2024 PROSTATE CANCER SCREENING DISCUSSION PROSTATE CANCER SCREENING DISCUSSION [facility] Start: 02-21-2024 Prostate specific antigen measurement Prostate Cancer Screening Discussion [facility] Start: 12-20-2023 End: 03-20-2024 25-hydroxyvitamin D3 [Mass/volume] in Serum or Plasma [facility] Work Phone: Comment on above: Expected: 12/20/2023 , Expires: 03/20/2024 Start: 12-12-2023 Covid-19 Vaccine () Covid-19 Vaccine () [facility] Start: 11-14-2023 Behavioral Health Screening Behavioral Health Screening [facility] Start: 11-14-2023 Depression Assessment Depression Ass essment [facility] Start: 11-04-2023 Diabetes Screening Diabetes Screenin g [facility] Start: 11-03-2023 BP CONTROLLED (<130/80) BP CONTROLLE D (<130/80) [facility] Start: 09-18-2023 DIABETES SCREEN DIABETES SCREEN [facility] Start: 09-18-2023 Diabetes Screening Diabetes Screenin g [facility] Start: 08-09-2023 Lipid 1996 panel - S ellen or Plasma Lipid Screening [facility] Start: 08-09-2023 LIPID SCREEN LIPID SCREEN [facility] Start: 07-15-2023 Covid-19 Vaccine () Covid-19 Vaccine () [facility] Start: 07-15-2023 Influenza vaccination [facility] Start: 2023 RSV Vaccine (1 - 1-d ose 60+ series) RSV Vaccine (1 - 1-dose 60+ series) [facility] Start: 2023 RSV Vaccine (1 - Ris k 60-74 years 1-dose series) RSV Vaccine (1 - Risk 60-74 years 1-dose series) [facility] Start: 11-14-2022 DEPRESSION ASSESSMENT DEPRESSION ASS ESSMENT [facility] Start: 11-03-2022 End: 11-03-2023 Chronic hepatitis differentiation between hepatitis B and C virus panel - Serum or Plasma HEP REMOTE PANEL BL Lab Routine 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) Expected: 11/03/2022, Expires: 11/03/2023 [facility] Work Phone: Comment on above: Expected: 11/03/2022 , Expires: 11/03/2023 Start: 07-23-2022 Colonoscopy COLONOSCOPY [facility] Start: 07-23-2022 COLORECTAL CANCER SCREENING COLORECTAL CANCER SCREENING [facility] Start: 07-23-2022 Screening for malign ant neoplasm of colon [facility] Start: 07-15-2022 Influenza vaccination INFLUENZA (#1) [facility] Start: 04-29-2022 COVID-19 VACCINE (6 - Booster for Pfizer series) COVID-19 VACCINE (6 - Booster for Pfizer series) [facility] Start: 01-04-2022 COVID-19 VACCINE (5 - Booster for Pfizer series) COVID-19 VACCINE (5 - Booster for Pfizer series) [facility] Start: 11-14-2021 DEPRESSION ASSESSMENT DEPRESSION ASS ESSMENT [facility] Start: 11-04-2021 Creatinine measurement [facility] Start: 11-04-2021 Potassium monitoring Potassium monit [facility]ing [facility] Start: 11-02-2021 HEMOGLOBIN/HEMATOCRIT HEMOGLOBIN/HEM ATOCRIT [facility] Start: 09-18-2021 SERUM CREATININE SERUM CREATININE Cl [facility] Start: 11-09-2020 Influenza vaccination LUNG CANCER SC REENING [facility] Start: 11-09-2020 Screening for malign ant neoplasm of lung Lung Cancer Screening [facility] Start: 08-10-2020 Adult depression screening assessment DEPRESSION SCREENING [facility] Start: 07-15-2020 Influenza vaccination Flu vaccine (# 1) [facility] [employer] 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 DIPTI DISEASE VISIT ANNUAL PCP TEAM CHRONIC DISEASE VISIT [facility] Start: 07-10-2019 PNEUMOCOCCAL (3 - PP SV23 if available, else PCV20) PNEUMOCOCCAL (3 - PPSV23 if available, else PCV20) [facility] Start: 07-10-2019 PNEUMOCOCCAL (3 - PP SV23 or PCV20) PNEUMOCOCCAL (3 - PPSV23 or PCV20) [facility] Start: 07-10-2019 Pneumococcal vaccination Pneum ococcal Vaccine (3 - PPSV23 or PCV20) [facility] Start: 09-04-2018 Pneumococcal vaccination Pneum ococcal Vaccine (3 of 3 - PPSV23 or PCV20) [facility] Start: 08-16-2014 TWO PNEUMOVAX 5 YEAR S APART PRIOR TO AGE 65 (#2) TWO PNEUMOVAX 5 YEARS APART PRIOR TO AGE 65 (#2) [facility] Start: 2013 SHINGRIX VACCINE (1 of 2) SHINGRIX VACCINE (1 of 2) [facility] Start: 2008 COLOGUARD (FIT-DNA) COLOGUARD (FIT-D NA) [facility] Start: [address] [facility] Start: 2008 FECAL OCCULT BLOOD FECAL OCCULT BLOO D [facility] Start: 2008 Screening for malign ant neoplasm of colon [facility] Start: 2008 SIGMOIDOSCOPY SIGMOIDOSCOPY [facility] Start: 1982 SHINGRIX VACCINE (1 of 2) SHINGRIX VACCINE (1 of 2) [facility] Start: 1982 Urine microalbumin profile [facility] Start: 1981 Annual PCP Team Shaker Screen Operator dipti Disease Visit Annual PCP Team Chronic Disease Visit [facility] Start: 1981 Anxiety Screening Anxiety Screening [facility] Start: 1981 BP CONTROLLED (<130/80) BP CONTROLLE D (<130/80) [facility] Start: 1981 Depression Screening Depression Scre ening [facility] CBC Auto Differential CBC Auto D ifferential Lab Routine Daily until discontinued starting 11/03/2020, 2 completed [employer] [place] Comment on above: Daily until disconti nued starting 11/03/2020, 2 completed End: 12-19-2024 CBC W Auto Differential panel - Blood CBC + DIFF Lab Routine Stage 3b chronic kidney disease (HCC) 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) Once per month for 13 Occurrences starting 12/20/2023 until 12/19/2024, 1 completed [facility] Work Phone: Comment on above: Once per month for 1 3 Occurrences starting 12/20/2023 until 12/19/2024, 1 completed End: 05-23-2026 CBC W Auto Differential panel - Blood COMPLETE BLOOD COUNT AND DIFFERENTIAL Lab Routine 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) Every 2 months for 7 Occurrences starting 05/23/2025 until 05/23/2026 [facility] Comment on above: Every 2 months for 7 Occurrences starting 05/23/2025 until 05/23/2026 End: 12-19-2024 Comprehensive metabolic 2000 panel - Serum or Plasma COMP METABOLIC PANEL Lab Routine Stage 3b chronic kidney disease (HCC) 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) Once per month for 13 Occurrences starting 12/20/2023 until 12/19/2024, 1 completed [facility] Work Phone: Comment on above: Once per month for 1 3 Occurrences starting 12/20/2023 until 12/19/2024, 1 completed End: 05-23-2026 Comprehensive metabolic 2000 panel - Serum or Plasma COMPREHENSIVE METABOLIC PANEL Lab Routine 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) Every 2 months for 7 Occurrences starting 05/23/2025 until 05/23/2026 [facility] Work Phone: Comment on above: Every 2 months for 7 Occurrences starting 05/23/2025 until 05/23/2026 Comprehensive Metabo lic Panel w/ Reflex to MG Comprehensive Metabolic Panel w/ Reflex to MG Lab Routine Daily until discontinued starting 10/28/2020, 7 completed [facility] [place] Comment on above: Daily until disconti nued starting 10/28/2020, 7 completed Nasal Cannula Oxygen Nasal Cannu la Oxygen Respiratory Care Routine Daily until discontinued starting 10/28/2020 [facility] [place] Comment on above: Daily until disconti nued starting 10/28/2020 Nebulizer therapy HHN Treatment Respiratory Care Routine 0600, 1000, 1400, 1800, 2200 until discontinued starting 10/30/2020 [facility] [place] Comment on above: 0600, 1000, 1400, 18 00, 2200 until discontinued starting 10/30/2020 Oxygen therapy [[facility] Data Set] Initiate Oxygen Therapy Protocol Respiratory Care Routine Daily until discontinued starting 10/28/2020 [facility] Comment on above: Daily until disconti nued starting 10/28/2020 End: 12-19-2024 Phosphate [Mass/volume] in Serum or Plasma PHOSPHORUS INORGANIC Lab Routine Stage 3b chronic kidney disease (HCC) 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) Once per month for 13 Occurrences starting 12/20/2023 until 12/19/2024, 1 completed [facility] Work Phone: Comment on above: Once per month for 1 3 Occurrences starting 12/20/2023 until 12/19/2024, 1 completed End: 05-23-2026 Phosphate [Mass/volume] in Serum or Plasma PHOSPHORUS INORGANIC Lab Routine 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) Every 2 months for 7 Occurrences starting 05/23/2025 until 05/23/2026 [facility] Comment on above: Every 2 months for 7 Occurrences starting 05/23/2025 until 05/23/2026 End: 12-19-2024 Protein/Creatinine [Mass Ratio] in Urine PROTEIN CREATININE RATIO Lab Routine 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) Once per month for 13 Occurrences starting 12/20/2023 until 12/19/2024 [facility] Work Phone: Comment on above: Once per month for 1 3 Occurrences starting 12/20/2023 until 12/19/2024 UA DIP, URINE (POC) UA DIP, URIN E (POC) Lab Routine Screening for genitourinary condition 1 Occurrences starting 11/20/2024 [facility] Work Phone: Comment on above: 1 Occurrences starti ng 11/20/2024 UA DIP, URINE (POC) UA DIP, URIN E (POC) Lab Routine Screening for genitourinary condition 1 Occurrences starting 05/23/2025 [facility] Work Phone: Comment on above: 1 Occurrences starti ng 05/23/2025 End: 12-19-2024 Urinalysis complete panel - Urine URINALYSIS, WITH MICROSCOPIC Lab Routine 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) Once per month for 13 Occurrences starting 12/20/2023 until 12/19/2024 [facility] Work Phone: Comment on above: Once per month for 1 3 Occurrences starting 12/20/2023 until 12/19/2024 End: 05-23-2026 Urinalysis complete panel - Urine URINALYSIS, WITH MICROSCOPIC Lab Routine 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) Every 2 months for 7 Occurrences starting 05/23/2025 until 05/23/2026 [facility] Comment on above: Every 2 months for 7 Occurrences starting 05/23/2025 until 05/23/2026 [facility] Immunizations Immunization Date Immunization Notes Care Provider Fa alfonso 08-15-2024 influenza virus vacc ine, unspecified formulation Anthony Olivares MD Work Phone: [facility] 08-15-2023 influenza virus vacc ine, unspecified formulation Dorota Smith MD Work Phone: [facility] 08-18-2021 influenza, injectabl e, quadrivalent, preservative free Anthony Olivares MD Work Phone: [facility] Work Phone: 08-18-2021 influenza virus vacc ine, unspecified formulation Luz Daniel MD Work Phone: [facility] 08-14-2021 COVID-19 vaccine, ag e 12+ yr ([employer] [facility] - PURPLE TOP) Anthony Olivares MD Work Phone: [facility] Work Phone: 08-17-2019 influenza, injectabl e, quadrivalent, preservative free Anthony Olivares MD Work Phone: [facility] 08-02-2018 influenza, injectabl e, quadrivalent, preservative free Anthony Olivares MD Work Phone: [facility] 07-10-2018 pneumococcal conjuga te vaccine, 13 valent Anthony Olivares MD Work Phone: [facility] 08-14-2016 Influenza virus vaccine [facility] 08-14-2016 influenza, seasonal, injectable, preservative free Anthony Olivares MD Work Phone: [facility] Work Phone: 07-30-2016 influenza, injectabl e, quadrivalent, contains preservative Anthony Olivares MD Work Phone: [facility] 08-21-2015 influenza, injectabl e, quadrivalent, contains preservative Anthony Olivares MD Work Phone: [facility] 09-27-2014 influenza, seasonal, injectable Anthony Olivares MD Work Phone: [facility] 09-06-2013 influenza virus vacc ine, unspecified formulation Anthony Olivares MD Work Phone: [facility] 09-07-2012 influenza virus vacc ine, unspecified formulation Anthony Olivares MD Work Phone: [facility] Work Phone: 11-24-2010 influenza virus vacc ine, unspecified formulation Anthony Olivares MD Work Phone: [facility] Work Phone: 08-16-2009 influenza virus vacc ine, unspecified formulation Anthony Olivares MD Work Phone: [facility] 08-16-2009 pneumococcal polysaccharide vaccine, 23 valent Anthony Olivares MD Work Phone: [facility] 10-15-2000 influenza virus vacc ine, whole virus Anthony Olivares MD Work Phone: [facility] Work Phone: Payers Date Payer Category Payer Self-pay [id number] [phone] [id number] 2020 Medicaid [id number] 2020 Medicare [id number] 2020 Medicare UHC MEDICARE MYC ARE [facility] MEDICARE [id number] 2020-Present [phone] [place], [place] [address] Medicare [id number] 2020 Medicare (Managed Care) [facility] MEDICARE [id number] 2020 Private Health Insurance [id number]. [id number] 2016 Medicaid [id number] 2002 Medicare [id number] 1965 Unknown [id number] 2.16.840.1.067108.3.579.2. 651 1963 Unknown [id number] 2.16.840.1.622873.3.579.2. 651 Unknown [id number] 2.16840.1.143623.3.579.2. 462 Unknown [id number] 2.16.840.1.587292.3.579.2. 462 Unknown [id number] 2.840.1.062336.3.579.2. 462 Unknown [id number] 2.16840.1.958302.3.579.2. 462 Unknown [id number] 2.16.840.1.448181.3.579.2. 462 Unknown [id number] 2.16.840.1.063284.3.579.2. 462 Unknown [id number] 2.16.840.1.044709.3.579.2. 462 Unknown [id number] 2.16.840.1.404284.3.579.2. 462 Unknown [id number] 2.16.840.1.240138.3.579.2. 462 Unknown [id number] 2.16.840.1.761456.3.579.2. 462 Unknown [id number] 2.16.840.1.750465.3.579.2. 462 Unknown [id number] 2.16.840.1.694247.3.579.2. 462 Unknown [id number] 2.16840.1.752917.3.579.2. 462 Unknown [id number] 2.16.840.1.618539.3.579.2. 462 Unknown [id number] 2.16840.1.704755.3.579.2. 462 Unknown [id number] 2.16.840.1.687200.3.579.2. 462 Unknown [id number] 2.840.1.150166.3.579.2. 462 Unknown [id number] 2.16.840.1.515702.3.579.2. 462 Unknown [id number] 2.840.1.954709.3.579.2. 462 Unknown [id number] 2.840.1.354683.3.579.2. 462 Unknown [id number] 2.840.1.883141.3.579.2. 462 Unknown [id number] 2.840.1.521860.3.579.2. 462 Unknown [id number] 2.840.1.277669.3.579.2. 462 Unknown [id number] 2.840.1.838858.3.579.2. 462 Unknown [id number] 2.840.1.614919.3.579.2. 462 Unknown [id number] 2.840.1.389653.3.579.2. 462 Unknown [id number] 2.840.1.475433.3.579.2. 462 Unknown [id number] 2.840.1.319119.3.579.2. 462 Unknown [id number] 2.840.1.722010.3.579.2. 462 Unknown [id number] 2.840.1.534424.3.579.2. 462 Unknown [id number] 2.840.1.271259.3.579.2. 462 Unknown [id number] 2.840.1.879633.3.579.2. 462 Social History Date Type Detail Facility Start: 10-28-2020 End: 09-14-2024 Tobacco smoking status NHIS Former smoker [facility] Start: 01-19-1973 End: 01-19-2015 History of tobacco use Current smoker [facility] [employer] Start: 1965 [facility] SARS-CoV -2 (event) [facility] Start: 03-02-2019 End: 03-02-2019 Tobacco smoking status NHIS Unknown if ever smoked [facility] Start: 03-02-2019 None [facility] Start: 03-02-2019 Spouse/ Signif icant Other;With Family [facility] Start: 04-04-2018 Non-smoker [facility] Start: 1965 Sex Assigned At Male [facility] Start: 01-19-1973 End: 01-19-2015 History of tobacco use Cigarette Smoker [facility] Start: 02-11-2015 End: 10-19-2020 Cigarettes smoked current (pack per day) - Reported 1.5 [facility] Start: 02-11-2015 End: 09-14-2024 Tobacco use and exposure Smokeless tobacco non-user [facility] Start: 02-26-2022 End: 05-23-2025 Alcohol intake Current non-drinker of alcohol (finding) [facility] Start: 04-25-2022 End: 05-05-2022 Exposure to SARS-CoV-2 (event) Not sure [facility] Start: 10-19-2020 End: 08-27-2022 Tobacco use panel [facility] PHQ2 Score 5 [facility] Start: 03-02-2019 End: 03-02-2019 Tobacco smoking status NHIS Never smoked tobacco (finding) [facility] Start: 01-18-2025 End: 02-28-2025 Sex Male (finding) [facility] Medical Equipment Procedure Code Equipment Code Equipment Original Text Equipment Identifier Dates Pgm-Wj-O-Kind Implant - [id number] Start: 07-16-2015 Comment on above: Description: C1713 M TP PLATE Qcy-Qn-A-Kind Implant - [id number] Start: 07-16-2015 Comment on above: Description: 3MM LOC VINNY SCREW Pik-Pp-H-Kind Implant - [id number] Start: 07-16-2015 Comment on above: Description: C1713, 3MM CORTICAL LOCKING SCREW Mum-Wu-A-Kind Implant - [id number] Start: 07-16-2015 Comment on above: Description: C1713, 3MM PARTIALLY THREADED CANNULATED SCREW Pjx-Om-I-Kind Implant - [id number] Start: 07-16-2015 Comment on above: Description: Implant System, CPR Mini Scorpion DX and Micro SutureLasso Screw Bn 3mm 18m m Ti Rodrigo Lp - [id number] Start: 07-16-2015 Screw Bn 3mm 15m m Qfix Ti Orth - [id number] Start: 07-16-2015 Screw Bn 3mm 15m m Qfix Ti Orth - [id number] Start: 07-16-2015 Screw Bn 3mm 12m m Ti Lck Lp - [id number] Start: 07-16-2015 Wire Fix .054in 6in Kr Ss - [id number] Start: 07-16-2015 Wire Fix .045in 5.5in Kr Ss - [id number] Start: 07-16-2015 Functional Status Date Assessment Result Facility 08-23-2019 Are you deaf, or do you have serious difficulty hearing No 08/23/2019 1:49 PM Vita Avitia RN No [facility] 08-23-2019 Are you blind, or do you have serious difficulty seeing, even when wearing glasses No 08/23/2019 1:49 PM Vita Avitia RN No [facility] 08-23-2019 Do you have serious difficulty walking or climbing stairs Yes 08/23/2019 1:49 PM Vita Avitia RN Yes [facility] 08-23-2019 Do you have difficul ty dressing or bathing No 08/23/2019 1:49 PM Vita Avitia RN No [facility] 08-23-2019 Because of a physica l, mental, or emotional condition, do you have difficulty doing errands alone such as visiting a physician's office or shopping No 08/23/2019 1:49 PM EDT Vita Glaser, JENSEN No [facility] Mental Status Date Assessment Result Facility 08-23-2019 Because of a physica l, mental, or emotional condition, do you have serious difficulty concentrating, remembering, or making decisions Yes 08/23/2019 1:49 PM EDT Vita Glaser, JENSEN Yes [facility] Clinical Notes 08-16-2019 to 06-06-2025 Julieta Luo RN - 06/06/2025 11:00 AM Anthony Grimm MD - 05/23/2025 3:57 PM Dorota Walker MD - 09/14/2024 9:01 AM EDTPatient Anthony Waggoner MD - 07/17/2024 11:24 AM EDT Note Date & Type Note Facility 06-06-2025 Note HNO ID: [id number] Author: JULIETA LUO RN Service: ? Author Type: Registered Nurse Type: Progress Notes Filed: 06/06/2025 13:13 Note Text: Asked to call nurse at [facility] for order clarification. Spoke with nurse named Keely. She states they were questioning if they should continue Metformin 500 mg twice daily because they had done a GFR yesterday and the results = GFR of 30%. Dr. Olivares's previous order had been to hold the metformin if GFR <30%. Advised to continue for now since it is not less 30%. Will message Dr. Olivares for further instructions. Per Dr. Olivares ok to continue Metformin. Continue labs q2 months. Keely STYLES notified at [facility]. Verbalized understanding. Julieta Luo RN [facility] 06-06-2025 History of Present illness Narrative Asked to call nurse at [facility] for order clarification. Spoke with nurse named Keely. She states they were questioning if they should continue Metformin 500 mg twice daily because they had done a GFR yesterday and the results = GFR of 30%. Dr. Olivares's previous order had been to hold the metformin if GFR <30%. Advised to continue for now since it is not less 30%. Will message Dr. Olivares for further instructions. Per Dr. Olivares ok to continue Metformin. Continue labs q2 months. Keely STYLES notified at [facility]. Verbalized understanding. Julieta Luo RN documented in this encounter [facility] 06-06-2025 Note Patient Outreach (JENN DMMN) ---- REGGIE LEÓN ([id number]) 1965 M Date Time Provider Department 06/06/25 JULIETA LUO During your visit today, we recorded the following information about you: Julieta Luo RN 06/06/2025 1:13 PM Addendum Asked to call nurse at [facility] for order clarification. Spoke with nurse named Keely. She states they were questioning if they should continue Metformin 500 mg twice daily because they had done a GFR yesterday and the results = GFR of 30%. Dr. Olivares's previous order had been to hold the metformin if GFR <30%. Advised to continue for now since it is not less 30%. Will message Dr. Olivares for further instructions. Per Dr. Olivares ok to continue Metformin. Continue labs q2 months. Keely STYLES notified at [facility]. Verbalized understanding. Julieta Luo RN Allergies As of Date: 06/06/2025 Noted Allergy Reaction BEE POLLEN 10/28/2020 14 - Other: See Comments FLONASE (FLUTICASONE PROPIONATE) 10/21/2013 14 - Other: See Comments Comments: Anxiety LAMOTRIGINE 04/24/2008 2 - Rash ZYPREXA (OLANZAPINE) 06/21/2007 2 - Rash Date Reviewed: 05/23/2025 Reviewed by: Anthony Olivares MD - Fully Assessed Prescriptions as of 06/06/2025 - allopurinol (ZYLOPRIM) 100 mg tablet Take [...] 10 mg by mouth once daily. - Uspsq-1-OYA-EPA-Fish Oil 1,000 mg (120 mg-180 mg) cap Take 1 capsule by mouth once daily. - PALIPERIDONE ORAL Take 6 mg by mouth as directed. Problem List As Of Date 06/06/2025 Noted Resolved Pneumonia, Organism Unspecified [J18.9] 01/29/2008 02/11/2010 Acute Gastritis without Mention of Hemorrhage [*05/28/2008 02/11/2010 Nontraumatic rupture of other tendons of foot a*10/08/2009 07/30/2016 Routine general medical examination at [facility]*10/21/2009 01/29/2013 Class: Chronic Bipolar affective disorder (HCC) [F31.9] 10/21/2009 Tobacco abuse [Z72.0] 10/21/2009 07/10/2018 Porokeratosis [Q82.8] 02/03/2010 Gastritis, chronic [K29.50] 02/11/2010 07/10/2018 Erosive esophagitis [K22.10] 02/11/2010 Achilles bursitis or tendinitis [M76.60] 03/20/2010 07/30/2016 Contusion of unspecified site [T14.8XXA] 03/30/2010 07/30/2016 Enthesopathy of unspecified site [M77.9] 11/25/2010 07/10/2018 Other physical therapy [[id number]] 11/25/2010 07/10/2018 Low HDL (under 40) [E78.6] [...] 08/11/2016 Malnutrition of mild degree (HCC) [E44.1] (more content not included)... [facility] 05-23-2025 Note HNO ID: [id number] Author: ANTHONY OLIVARES MD Service: ? Author Type: Physician Type: Progress Notes Filed: 06/10/2025 12:36 Note Text: Established Patient Virtual Visit I have communicated my name and active licensure. The patient's identity and physical location were verified at the time of this visit. Either the patient or their legal pharmaceutical specialty representative has been informed of the risks and benefits of -- and alternatives to -- treatment through a remote evaluation and consents to proceed with the evaluation remotely. Patient location ( state): [place] Patient acknowledges possible future need [...] 2023, last infusion was February 2025 at [facility]. Next one planned for August, not yet scheduled. He resides in [facility] assisted living facility. Last chem panel was Sep 2024. Several appointments canceled or no-showed in November 2024. He has no new concerns or complaints. PAST MEDICAL HISTORY Diagnosis Date Bipolar disorder, unspecified ([facility]) [facility] 18 [facility], [facility]; stable on meds Chronic systolic CHF (congestive heart failure) ([facility]) 03/19/2021 Convulsions ([facility]) 08/10/2019 Diabetes (HCC) Diabetes mellitus ([facility]) Diverticulosis of colon (without mention of hemorrhage) DVT (deep venous thrombosis) ([facility]) 2014 rina-op. on anticoagulants, 2016 Erosive esophagitis 02/11/2010 See EGD 2008 Family history of epilepsy Paternal uncle's son [...] pulm involvement, high dose predinsone and rituximab [id number], started Aug 16, 2016; 07/30. flared spring 2017, induced with pred and rituximab PAST SURGICAL HISTORY Procedure Laterality Date CHOLECYSTECTOMY 2013 [facility] COLONOSCOPY FLX DX W/COLLJ SPEC WHEN [...] daily. metoprolol succinat (more content not included)... [facility] 05-23-2025 History of Present illness Narrative Established Patient Virtual Visit I have communicated my name and active licensure. The patient's identity and physical location were verified at the time of this visit. Either the patient or their legal pharmaceutical specialty representative has been informed of the risks [...] 2023, last infusion was February 2025 at [facility]. Next one planned for August, not yet scheduled. He resides in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 Convulsions 08/10/2019 08/23/2019 Last Assessment & Plan: Gastroesophageal reflux disease with esophagitis 04/27/2018 07/10/2018 Overview: Added automatically from request for surgery [id number] Stage 4 chronic renal impair ment associated [...] of this encounter (statuses as of 05/06/2022) [facility] History of Past illness Narrative* Problem Noted Date Resolved Date Encephalopathy 08/16/2019 08/23/2019 Last Assessment & Plan: POA Assessment: 54 year old male who was referred by Dr. Aissatou Culp [[facility]] for diagnosis of events. No typical events during the admission. PLAN: - Do not restart VPA Convulsions 08/10/2019 08/23/2019 Last Assessment & Plan: Gastroesophageal reflux disease with esophagitis 04/27/2018 07/10/2018 Overview: Added automatically from request for surgery [id number] Stage 4 chronic renal impair ment associated [...] of this encounter (statuses as of 07/27/2022) [facility] History of Past illness Narrative* Problem Noted Date Resolved Date Encephalopathy 08/16/2019 08/23/2019 Last Assessment & Plan: POA Assessment: 54 year old male who was referred by Dr. Aissatou Culp [[facility]] for diagnosis of events. No typical events during the admission. PLAN: - Do not restart VPA Convulsions 08/10/2019 08/23/2019 Last Assessment & Plan: Gastroesophageal reflux disease with esophagitis 04/27/2018 07/10/2018 Overview: Added automatically from request for surgery [id number] Stage 4 chronic renal impair ment associated [...] of this encounter (statuses as of 07/30/2022) [facility] History of Past illness Narrative* Problem Noted Date Resolved Date Encephalopathy 08/16/2019 08/23/2019 Last Assessment & Plan: POA Assessment: 54 year old male who was referred by Dr. Aissatou Culp [[facility]] for diagnosis of events. No typical events during the admission. PLAN: - Do not restart VPA Convulsions 08/10/2019 08/23/2019 Last Assessment & Plan: Gastroesophageal reflux disease with esophagitis 04/27/2018 07/10/2018 Overview: Added automatically from request for surgery [id number] Stage 4 chronic renal impair ment associated [...] of this encounter (statuses as of 08/27/2022) [facility] History of Past illness Narrative* Problem Noted Date Resolved Date Encephalopathy 08/16/2019 08/23/2019 Last Assessment & Plan: POA Assessment: 54 year old male who was referred by Dr. Aissatou Culp [[facility]] for diagnosis of events. No typical events during the admission. PLAN: - Do not restart VPA Convulsions 08/10/2019 08/23/2019 Last Assessment & Plan: Gastroesophageal reflux disease with esophagitis 04/27/2018 07/10/2018 Overview: Added automatically from request for surgery [id number] Stage 4 chronic renal impair ment associated [...] of this encounter (statuses as of 11/02/2022) [facility] of [facility] illness Narrative* Problem Noted Date Resolved Date Encephalopathy 08/16/2019 08/23/2019 Last Assessment & Plan: POA Assessment: 54 year old male who was referred by Dr. iAssatou Culp [[facility]] for diagnosis of events. No typical events during the admission. PLAN: - Do not restart VPA Convulsions 08/10/2019 08/23/2019 Last Assessment & Plan: Gastroesophageal reflux disease with esophagitis 04/27/2018 07/10/2018 Overview: Added automatically from request for surgery [id number] Stage 4 chronic renal impair ment associated [...] of this encounter (statuses as of 11/02/2022) [facility] of [facility] illness Narrative* Problem Noted Date Resolved Date Encephalopathy 08/16/2019 08/23/2019 Last Assessment & Plan: POA Assessment: 54 year old male who was referred by Dr. Aissaotu Culp [[facility]] for diagnosis of events. No typical events during the admission. PLAN: - Do not restart VPA Convulsions 08/10/2019 08/23/2019 Last Assessment & Plan: Gastroesophageal reflux disease with esophagitis 04/27/2018 07/10/2018 Overview: Added automatically from request for surgery [id number] Stage 4 chronic renal impair ment associated [...] of this encounter (statuses as of 11/03/2022) [facility] illness Narrative* Problem Noted Date Resolved Date Encephalopathy 08/16/2019 08/23/2019 Last Assessment & Plan: POA Assessment: 54 year old male who was referred by Dr. Aissatou Culp [[facility]] for diagnosis of events. No typical events during the admission. PLAN: - Do not restart VPA Convulsions 08/10/2019 08/23/2019 Last Assessment & Plan: Gastroesophageal reflux disease with esophagitis 04/27/2018 07/10/2018 Overview: Added automatically from request for surgery [id number] Stage 4 chronic renal impair ment associated [...] of this encounter (statuses as of 02/25/2023) [facility] illness Narrative* Problem Noted Date Diagnosed Date Resolved Date Encephalopathy 08/16/2019 08/23/2019 Last Assessment & Plan: POA Assessment: 54 year old male who was referred by Dr. Aissatou Culp [[facility]] for diagnosis of events. No typical events during the admission. PLAN: - Do not restart VPA Convulsions 08/10/2019 08/23/2019 Last Assessment & Plan: Gastroesophageal reflux dise ase with esophagitis 04/27/2018 07/10/2018 Overview: Added automatically from request for surgery [id number] Stage 4 chronic renal impair ment associated [...] of this encounter (statuses as of 08/26/2023) [facility] of [facility] illness Narrative* Problem Noted Date Diagnosed Date Resolved Date Encephalopathy 08/16/2019 08/23/2019 Last Assessment & Plan: POA Assessment: 54 year old male who was referred by Dr. Aissatou Culp [[facility]] for diagnosis of events. No typical events during the admission. PLAN: - Do not restart VPA Convulsions 08/10/2019 08/23/2019 Last Assessment & Plan: Gastroesophageal reflux dise ase with esophagitis 04/27/2018 07/10/2018 Overview: Added automatically from request for surgery [id number] Stage 4 chronic renal impair ment associated [...] of this encounter (statuses as of 08/31/2023) [facility] of Past illness Narrative* Problem Noted Date Diagnosed Date Resolved Date Encephalopathy 08/16/2019 08/23/2019 Last Assessment & Plan: POA Assessment: 54 year old male who was referred by Dr. Aissatou Culp [[facility]] for diagnosis of events. No typical events during the admission. PLAN: - Do not restart VPA Convulsions 08/10/2019 08/23/2019 Last Assessment & Plan: Gastroesophageal reflux dise ase with esophagitis 04/27/2018 07/10/2018 Overview: Added automatically from request for surgery [id number] Stage 4 chronic renal impair ment associated [...] of this encounter (statuses as of 12/20/2023) [facility] of [facility] illness Narrative* Problem Noted Date Diagnosed Date Resolved Date Encephalopathy 08/16/2019 08/23/2019 Last Assessment & Plan: POA Assessment: 54 year old male who was referred by Dr. Aissatou Culp [[facility]] for diagnosis of events. No typical events during the admission. PLAN: - Do not restart VPA Convulsions 08/10/2019 08/23/2019 Last Assessment & Plan: Gastroesophageal reflux dise ase with esophagitis 04/27/2018 07/10/2018 Overview: Added automatically from request for surgery [id number] Stage 4 chronic renal impair ment associated [...] of this encounter (statuses as of 12/23/2023) [facility] of Past illness Narrative* Problem Noted Date Diagnosed Date Resolved Date Encephalopathy 08/16/2019 08/23/2019 Last Assessment & Plan: POA Assessment: 54 year old male who was referred by Dr. Aissatou Culp [[facility]] for diagnosis of events. No typical events during the admission. PLAN: - Do not restart VPA Convulsions 08/10/2019 08/23/2019 Last Assessment & Plan: Gastroesophageal reflux dise ase with esophagitis 04/27/2018 07/10/2018 Overview: Added automatically from request for surgery [id number] Stage 4 chronic renal impair ment associated [...] of this encounter (statuses as of 12/23/2023) [facility] of [facility] illness Narrative* Problem Noted Date Diagnosed Date Resolved Date Encephalopathy 08/16/2019 08/23/2019 Last Assessment & Plan: POA Assessment: 54 year old male who was referred by Dr. Aissatou Culp [[facility]] for diagnosis of events. No typical events during the admission. PLAN: - Do not restart VPA Convulsions 08/10/2019 08/23/2019 Last Assessment & Plan: Gastroesophageal reflux dise ase with esophagitis 04/27/2018 07/10/2018 Overview: Added automatically from request for surgery [id number] Stage 4 chronic renal impair ment associated [...] of this encounter (statuses as of 12/27/2023) [facility] Narrative* Problem Noted Date Diagnosed Date Resolved Date Encephalopathy 08/16/2019 08/23/2019 Last Assessment & Plan: POA Assessment: 54 year old male who was referred by Dr. Aissatou Culp [[facility]] for diagnosis of events. No typical events during the admission. PLAN: - Do not restart VPA Convulsions 08/10/2019 08/23/2019 Last Assessment & Plan: Gastroesophageal reflux dise ase with esophagitis 04/27/2018 07/10/2018 Overview: Added automatically from request for surgery [id number] Stage 4 chronic renal impair ment associated [...] of this encounter (statuses as of 01/26/2024) [facility] illness Narrative* Problem Noted Date Diagnosed Date Resolved Date Encephalopathy 08/16/2019 08/23/2019 Last Assessment & Plan: POA Assessment: 54 year old male who was referred by Dr. Aissatou Culp [[facility]] for diagnosis of events. No typical events during the admission. PLAN: - Do not restart VPA Convulsions 08/10/2019 08/23/2019 Last Assessment & Plan: Gastroesophageal reflux dise ase with esophagitis 04/27/2018 07/10/2018 Overview: Added automatically from request for surgery [id number] Stage 4 chronic renal impair ment associated [...] of this encounter (statuses as of 01/27/2024) [facility] noteNo assessment information availableWMcKitrick Hospital Work Phone: Evaluation note* Diagnosis Granulomatosis with polyangiitis, unspecified whether renal involvement (HCC)- Primary [facility] Diagnosis 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 Stage 3b chronic kidney disease (HCC) Benign hypertension with chronic kidney disease Rheumatoid arthritis involving both hands 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 rheumatoid factor (HCC) Chronic pain of right knee [facility] Diagnosis 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 Vasculitis (HCC) Arteritis, unspecified [facility] Diagnosis Rheumatoid arthritis involving both hands [...] unspecified genitourinary condition documented in this encounter [facility] note* Diagnosis Granulomatosis with polyangiitis with [...] involvement (HCC)- Primary documented in this encounter [facility] note* Diagnosis Granulomatosis with polyangiitis with [...] therapy (HCC) (HCC) documented in this encounter [facility] note* Diagnosis Granulomatosis with polyangiitis with [...] unspecified genitourinary condition documented in this encounter [facility] note* Diagnosis Granulomatosis with polyangiitis with [...] involvement (HCC)- Primary documented in this encounter [facility] note* Diagnosis Granulomatosis with polyangiitis with [...] involvement (HCC)- Primary documented in this encounter [facility] note* Diagnosis Granulomatosis with polyangiitis with [...] kidney disease (HCC) [facility] Diagnosis Granulomatosis with polyangiitis with renal [...] unspecified genitourinary condition [facility] (narrative)* Diagnostic Procedure Only (Routine) - Closed Specialty Diagnoses / Procedures Referred By Contac t Referred To Contact XR IMAGING Diagnoses Chronic pain of right knee Procedures XR KNEE LIMITED 2V AP/LAT RIGHT RADIOLOGIC EXAMINATION KNEE 1/2 VIEWS Luz Daniel MD [address] [place] [address] Xr Imaging Referral ID Status Reason Start Date Expiration Date V isits Requested Visits Authorized [id number] Closed Auto-Generate d Referral 02/26/2022 03/28/2023 1 1 * Diagnostic Procedure Only (Routine) - Closed Specialty Diagnoses / Procedures Referred By Contac t Referred To Contact XR IMAGING Diagnoses Rheumatoid arthritis involving both hands 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 rheumatoid factor (HCC) Procedures XR FOOT GENERAL 3V AP/LAT/OBL RIGHT RADEX FOOT COMPLETE MINIMUM 3 VIEWS Luz Daniel MD [address] [address] Xr Imaging Referral ID Status Reason Start Date Expiration Date V isits Requested Visits Authorized [id number] Closed Auto-Generate d Referral 02/26/2022 03/28/2023 1 1 * Diagnostic Procedure Only (Routine) - Closed Specialty Diagnoses / Procedures Referred By Contac t Referred To Contact XR IMAGING Diagnoses Rheumatoid arthritis involving both hands 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 rheumatoid factor (HCC) Procedures XR FOOT GENERAL 3V AP/LAT/OBL LEFT RADEX FOOT COMPLETE MINIMUM 3 VIEWS Luz Daniel MD [address] [address] Xr Imaging Referral ID Status Reason Start Date Expiration Date V isits Requested Visits Authorized [id number] Closed Auto-Generate d Referral 02/26/2022 03/28/2023 1 1 * Diagnostic Procedure Only (Routine) - Closed Specialty Diagnoses / Procedures Referred By Contac t Referred To Contact XR IMAGING Diagnoses Rheumatoid arthritis involving both hands 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 rheumatoid factor (HCC) Procedures XR HAND GENERAL 3V PA/LAT/OBL RIGHT RADEX HAND MINIMUM 3 VIEWS Luz Daniel MD [address] [place] [address] Xr Imaging Referral ID Status Reason Start Date Expiration Date V isits Requested Visits Authorized [id number] Closed Auto-Generate d Referral 02/26/2022 03/28/2023 1 1 * Diagnostic Procedure Only (Routine) - Closed Specialty Diagnoses / Procedures Referred By Contac t Referred To Contact XR IMAGING Diagnoses Rheumatoid arthritis involving both hands 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 rheumatoid factor (HCC) Procedures XR HAND GENERAL 3V PA/LAT/OBL LEFT RADEX HAND MINIMUM 3 VIEWS Luz Daniel MD [address] [place] [address] Xr Imaging Referral ID Status Reason Start Date Expiration Date V isits Requested Visits Authorized [id number] Closed Auto-Generate d Referral 02/26/2022 03/28/2023 1 [facility]ative)No reason for referral information availableWMcKitrick Hospital Work Phone: Reason for visit Narrative* [place] Prior Authorization (Routine) - Authorized Specialty Diagnoses / Procedures Referred By Contac t Referred To Contact Diagnoses 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) Procedures INJ RUXIENCE, 10 MG Anthony Olivares MD [address] [place] [address] Phone: tel: fax: Anthony Olivares MD [address] [place] [address] Phone: tel: fax: Referral ID Status Reason Start Date Expiration Date V isits Requested Visits Authorized [id number] Authorized 01/30/2025 01/31/2026 2 2 [facility] Summary Purpose Family History No [...] No March 02, 2019 1:12pm Power of Rewinder Operator Helper No March 02 1:12pm Documents on File Type Date Recorded 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 Expl 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 Advance Directive(s) 08/17/2019 7:16 PM Advance Directive(s) 08/14/2019 9:32 AM Advance Directive(s) 07/23/2019 12:21 PM Advance Directive(s) 01/05/2019 9:49 AM Advance Directive(s) 06/12/2018 10:01 AM Advance Directive(s) 08/24/2016 10:32 PM Advance Directive(s) 08/11/2016 2:31 PM Documents on File Type Date Recorded 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 Dealer Expl anation Advance Directive(s) 08/17/2019 7:16 PM Advance Directive(s) 08/14/2019 9:32 AM Advance Directive(s) 07/23/2019 12:21 PM Advance Directive(s) 01/05/2019 9:49 AM Advance Directive(s) 06/12/2018 10:01 AM Advance Directive(s) 08/24/2016 10:32 PM Advance Directive(s) 08/11/2016 2:31 PM Advance Directive Response Recorded Date/ Time Advance Directives No July 12:38am Living Will No March 02, 2019 12:12pm Power of Rewinder Operator Helper No March 02 12:12pm Advance Directive Response [...] with shortness of breath and hypoxia from [place] [facility] [place]. He had a positive COVID19 test (more [...] 10/28/20 0000 -- -- -- Aminah León [phone] Admitting Physician: Farrukh Diaz MD PCP: No primary care provider on file. Discharging Nurse: [facility] Unit/Room#: 468/4681 Discharging Unit Phone Number: [phone] Emergency Contact: No emergency contact information on [...] Casillas RN 11/05/20 11/12/20 10/14/2020 Documentation in [place] Disease Reporting System of positive COVID - [...] Assisted Dressing Assisted Toileting Independent Feeding Independent Tassel Clipper Assisted Med Delivery whole Wound Care Documentation [...] Readmission: 20 Discharging to Facility/ Agency Name: [facility] Address: [address] [place] [address] Dialysis Facility (if applicable) Name: Address: Dialysis Schedule: Phone: Fax: Systems Accountant/Elevator Erector Helper signature: at12:24 PM EST PHYSICIAN SECTION Prognosis: [...] PM EST Report given to Yesenia at [place]. * Amaris Ibrahim RCP - 11/04/2020 12:15 PM EST [facility] Department Progress Note SpO2 at [...] Daniel MD - 11/03/2020 6:05 PM EST [facility] Ne[facility]rology Progress Note Subjective/ 57 [...] 87.8 87.6 PLT 340 332 Recent Labs 11/01/2023411/02/2031611/03/20 0236 NA 137 137 134* K 4.2 [...] in remission from renal perspective. No urgent STUDENT SERVICES REP indications. Will follow. [facility] * Farrukh Diaz MD - 11/03/2020 1:09 PM EST Hospitalist Progress Note 11/03/2020 1:09 PM [phone]: Please page dc [phone] for patient care issues. [phone]: Please page [facility] night Hospitalist for any issues. [...] rashes or lesions. LABS: CBC: Recent Labs 11/02/20 0317 11/03/20 0236 WBC 13.0* 15.6* RBC 4.49 4.45 HGB [...] Advance Directive: Full Code Discharge planning: TBD Imola K Osapay, MD Division of Hospitalist Medicine Inpatient Medical Services PAGER: [phone] * Piyush Daniel MD - 11/02/2020 10:00 PM EST [facility]phrology Progress [...] Farrukh Diaz MD 1 capsule at 11/02/20 0809 pantoprazole (PROTONIX) tablet 40 mg 40 mg [...] remission atleast from renal perspective. No urgent STUDENT SERVICES REP indications. Will follow. [facility] * Farrukh Diaz MD - 11/02/2020 3:16 PM EST Hospitalist Progress Note 11/02/2020 3:16 PM [phone]: Please page dc [phone] for patient care issues. [phone]: Please page [facility] Hospitalist for any issues. Subjective: Admit Date: [...] of Hospitalist Medicine Inpatient Medical Services PAGER: [phone] * Piyush Daniel MD - 11/01/2020 8:04 PM EST [facility] Progress Note Subjective/ 57 [...] 12.5 mg 12.5 mg Oral Q6H PRN Farruhk Diaz MD Or ondansetron (ZOFRAN) injection 4 [...] Daily Farrukh Diaz MD 40 mg at 11/01/20829 hydroxychloroquine (PLAQUENIL) tablet 100 mg 100 mg Oral Daily Farrukh Diaz MD 100 mg at 11/01/20 08 lithium capsule 300 mg 300 mg Oral Nightly Farrukh Diaz MD 300 mg at 10/31/202122 cetirizine (ZYRTEC) tablet 5 mg 5 mg Oral Daily Farrukh Diaz MD 5 mg at 11/01/20 08 melatonin tablet 3 mg 3 mg Oral Nightly Farrukh Diaz MD 3 mg at 10/31/202122 metoprolol succinate (TOPROL XL) extended release tablet 50 mg 50 mg Oral Daily Farrukh Diaz MD 50 mg at 11/01/20 0830 omega-3 acid ethyl esters (LOVAZA) capsule 1 capsule 1 capsule Oral Daily Farrukh Diaz MD 1 capsule at 11/01/20 08 pantoprazole (PROTONIX) tablet 40 mg 40 [...] remission atleast from renal perspective. No urgent STUDENT SERVICES REP indications. Will follow. [facility] * Farrukh Diaz MD - 11/01/2020 3:07 PM EST Hospitalist Progress Note 11/01/2020 3:08 PM [phone]: Please page dc [phone] for patient care issues. [phone]: Please page [facility] night Hospitalist for any issues. [...] of Hospitalist Medicine Inpatient Medical Services PAGER: [phone] * Mia Noyola, BRASS POLISHER - 11/01/2020 12:00 PM EST Patient Evaluation [...] EST Hospitalist Progress Note 11/01/2020 11:33 AM [phone]: Please page [phone] for patient care issues. [phone]: Please page [facility] Hospitalist for any issues. Subjective: Admit Date: [...] 14.0 PLT 294 BMP: Recent Labs 10/30/20 01110/31/201 11/01/20 0235 NA 140 136 137 K [...] of Hospitalist Medicine Inpatient Medical Services PAGER: [phone] * Bakari Hdz MD - 10/31/2020 9:35 AM EST [facility] Progress Note Subjective/ 57 [...] solution 1 ampule 1 ampule Inhalation Q4H LA Farrukh Diaz MD 1 ampule at 10/30/202226 [...] Intravenous Q24H Farrukh Diaz MD Stopped at 10/30/202133 0.9 % sodium chloride bolus 30 mL [...] restart home lasix dose today since abby og Continue to hold Losartan. No changes needed to immunosuppressive therapy. May need to institute the antibiotic 3x/week the one he was on outpatient. 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 D/w IMS. No urgent STUDENT SERVICES REP indications. Will follow. [facility] * Farrukh Diaz MD - 10/30/2020 3:50 PM EST Hospitalist Progress Note 10/30/2020 3:50 PM [phone]: Please page dc [phone] for patient care issues. [phone]: Please page [facility] night Hospitalist for any issues. [...] NEGATIVE: No targets were detected by the [employer] Upper Respiratory Pathogens PCR Panel. _ Expected Result: Not Detected The [employer] Upper Respiratory Pathogens PCR Panel can detect [...] management decisions. This assay was developed by [employer] and distributed under an Emergency Use Authorization (EUA) granted by the FDA for the qualitative detection of SARS-CoV-2 nucleic acid. Provider and patient fact sheets can be found at https://www.fda. gov/media/130156/download and https://www.fda.gov/media/670527/download. Assessment / Plan 1. Acute hypoxic respiratory [...] of Hospitalist Medicine Inpatient Medical Services PAGER: [phone] * Bakari Hdz MD - 10/30/2020 10:18 AM EST [facility] Progress Note Subjective/ 57 [...] Farrukh Diaz MD 40 mg at 10/29/20 0825 hydroxychloroquine (PLAQUENIL) tablet 100 mg 100 mg [...] more ivf needed S/p contrats exposure 10/30, abby staying stable so far, trend Plan to restart home lasix dose dani am if abby og Continue to hold Losartan. No changes needed to immunosuppressive therapy. May need to institute the antibiotic 3x/week the one he was on outpatient. 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 D/w IMS. No urgent STUDENT SERVICES REP indications. Will follow. [facility] * Jeanie Samuel - 10/30/2020 9:42 AM EST Nutrition rescreen completed. Patient assigned a level 1. * Farrukh Diaz MD - 10/29/2020 5:56 PM EST Hospitalist Progress Note 10/29/2020 5:56 PM [phone]: Please page dc [phone] for patient care issues. [phone]: Please page [facility] Hospitalist for any issues. Subjective: Admit Date: [...] rashes or lesions. LABS: CBC: Recent Labs 10/28/20161810/29/20 0534 10/29/20 1115 WBC 4.6 4.4 7.8 RBC 4.42 4.19* 4.30* HGB 12.9* 12.2* 12.6* HCT 38.1* 36.7* 37.3* MCV 86.2 87.8 86.7 RDW 14.0 13.8 14.2 PLT 223 231 255 BMP: Recent Labs 10/28/20161810/29/20 0534 10/29/20 1115 NA 133* 136 137 K 3.1* 4.3 3.9 CL 101 110* 112* CO2 22 17* 18* BUN 35* 31* 33* CREATININE 2.96* 2.37* 2.24* GLUCOSE 122* 139* 132* CALCIUM 8.6 8.5 8.9 ANIONGAP 9 9 7 LIVER PROFILE: Recent Labs 10/28/20161810/29/20 0534 10/29/20 1115 AST 87* 86* 88* [...] NEGATIVE: No targets were detected by the [employer] Upper Respiratory Pathogens PCR Panel. _ Expected Result: Not Detected The [employer] Upper Respiratory Pathogens PCR Panel can detect [...] management decisions. This assay was developed by [employer] and distributed under an Emergency Use Authorization (EUA) granted by the FDA for the qualitative detection of SARS-CoV-2 nucleic acid. Provider and patient fact sheets can be found at https://www.fda. gov/media/946995/download and https://www.fda.gov/media/164798/download. Assessment / Plan 1. Acute hypoxic respiratory [...] of Hospitalist Medicine Inpatient Medical Services PAGER: [phone] * Shirley Casillas RN - 10/29/2020 10:49 AM EST Documentation in [place] disease Reporting System: * Farrukh Diaz MD - 10/29/2020 9:58 AM EST Patient unable to get CTA chest due to DONNA - will hydrate and if able, will get it at a later time. * Irena Land RN - 10/29/2020 12:48 AM EST Patient moved into private bed [address] Mosley. Patients COVID test came back negative. Dr. Pro nursing picking crew supervisor made aware. documented in this encounter Assessments Diagnosis Pneumonia due to COVID-19 virus- Primary Hypoxia Hypoxemia Hypokalemia Hypopotassemia Stage 3 chronic kidney disease, unspecified whether stage 3a or 3b CKD Chief Complaint and Reason for Visit Chief Complaint MCC LAB WOR K MCC LABWORK MCC LABWORK MCC LABWORK MCC LAB WORK MCC LABWORK Chief Complaint MCC LABWORK MCC LABWORK MCC LAB WORK MCC LABWORK MCC LABWORK MCC LABWORK Chief Complaint MCC LABWORK MCC LAB WORK MCC LABWORK MCC LABWORK MCC LABWORK LABWORK MCC LABWORK Chief Complaint MCC LABWORK MCC LAB WORK MCC LABWORK MCC LABWORK MCC LABWORK LABWORK MCC LABWORK LABWORK Chief Complaint MCC LAB WOR K MCC LABWORK MCC LABWORK MCC LABWORK LABWORK MCC LABWORK LABWORK LABWORK Chief Complaint MCC LABWORK MCC LABWORK LABWORK MCC LABWORK LABWORK MCC LABWORK LABWORK MCC LAB WORK LABWORK Chief Complaint LABWORK MCC LABWORK LABWORK MCC LABWORK LABWORK MCC LAB WORK LABWORK LABWORK LABWORK Chief Complaint LABWORK MCC LABWORK LABWORK MCC LABWORK LABWORK MCC LAB WORK LABWORK LABWORK LABWORK MCC LABWORK Chief Complaint MCC LABWORK LABWORK MCC LABWORK LABWORK MCC LAB WORK LABWORK LABWORK LABWORK MCC LABWORK MCC LABWORK Chief Complaint LABWORK LABWORK LABWORK MCC LABWORK MCC LABWORK MCC LABWORK Chief Complaint LABWORK LABWORK LABWORK MCC LABWORK MCC LABWORK LABWORK MCC LABWORK Chief Complaint LABWORK LABWORK MCC LABWORK MCC LABWORK LABWORK MCC LABWORK MCC LAB WORK MCC LABWORK Chief Complaint LABWORK MCC LABWORK MCC LABWORK LABWORK MCC LABWORK MCC LAB WORK MCC LABWORK MCC LABWORK Chief Complaint LABWORK MCC LABWORK MCC LAB WORK MCC LABWORK MCC LABWORK LABWORK MCC LAB WORK LABWORK Chief Complaint MCC LABWORK MCC LAB WORK MCC LABWORK MCC LABWORK LABWORK MCC LAB WORK LABWORK LABWORK Chief Complaint MCC LABWORK MCC LAB WORK MCC LABWORK MCC LABWORK LABWORK MCC LAB WORK LABWORK LABWORK MCC LAB WORK Chief Complaint MCC LABWORK LABWORK MCC LAB WORK LABWORK LABWORK MCC LAB WORK MCC LABWORK Chief Complaint LABWORK MCC LAB WORK LABWORK LABWORK MCC LAB WORK MCC LABWORK LABWORK MCC LABWORK Chief Complaint MCC LAB WOR K LABWORK LABWORK MCC LAB WORK MCC LABWORK LABWORK MCC LABWORK LABWORK Chief Complaint MCC LAB WOR K LABWORK LABWORK MCC LAB WORK MCC LABWORK LABWORK MCC LABWORK LABWORK MCC LAB WORK Chief Complaint LABWORK LABWORK MCC LAB WORK MCC LABWORK LABWORK MCC LABWORK LABWORK LABWORK MCC LAB WORK MCC LABWORK Chief Complaint LABWORK MCC LAB WORK MCC LABWORK LABWORK MCC LABWORK LABWORK LABWORK MCC LAB WORK MCC LABWORK LABWORK Chief Complaint MCC LAB WOR K MCC LABWORK LABWORK MCC LABWORK LABWORK LABWORK MCC LAB WORK MCC LABWORK LABWORK LABWORK Chief Complaint LABWORK LABWORK MCC LABWORK MCC LABWORK LABWORK LABWORK MCC LAB WORK MCC LABWORK Chief Complaint MCC LABWORK MCC LABWORK LABWORK LABWORK MCC LAB WORK MCC LABWORK MCC LAB WORK LABWORK Chief Complaint LABWORK LABWORK MCC LAB WORK MCC LABWORK MCC LAB WORK LABWORK LABWORK Chief Complaint MCC LAB WOR K MCC LABWORK MCC LAB WORK LABWORK LABWORK MCC LABWORK MCC LABWORK Chief Complaint LABWORK LABWORK MCC LABWORK MCC LABWORK LABWORK Chief Complaint LABWORK LABWORK MCC LABWORK MCC LABWORK LABWORK MCC LAB WORK Chief Complaint LABWORK LABWORK MCC LABWORK MCC LABWORK LABWORK MCC LAB WORK LABWORK Chief Complaint MCC LABWORK MCC LABWORK LABWORK MCC LAB WORK LABWORK MCC LABWORK Chief Complaint MCC LABWORK MCC LABWORK LABWORK MCC LAB WORK LABWORK MCC LABWORK MCC LAB WORK Chief Complaint LABWORK MCC LAB WORK LABWORK MCC LABWORK MCC LAB WORK MCC LAB WORK LABWORK Chief Complaint MCC LAB WOR K LABWORK MCC LABWORK MCC LAB WORK MCC LAB WORK LABWORK LABWORK Chief Complaint MCC LABWORK MCC LAB WORK MCC LAB WORK LABWORK LABWORK LABWORK Chief Complaint Admit Date MCC LAB WORK September 27 5:00am MCC LAB WORK November 15, 2024 5:00am MCC LAB WORK November 27, 2024 5:00am MCC LAB WORK December 28 5:00am MCC LAB WORK January 02 5:00am MCC LAB WORK January 03 6:10am Chief Complaint Admit Date MCC LAB WORK November 15, 2024 5:00am MCC LAB WORK November 27, 2024 5:00am MCC LAB WORK December 28 5:00am MCC LAB WORK January 02 5:00am MCC LAB WORK January 03 6:10am MCC LAB WORK January 25, 2025 5 :00am Chief Complaint Admit Date MCC LAB WORK November 15, 2024 5:00am MCC LAB WORK November 27, 2024 5:00am MCC LAB WORK December 28 5:00am MCC LAB WORK January 02 5:00am MCC LAB WORK January 03 6:10am MCC LAB WORK January 25, 2025 5 :00am MCC LAB WORK January 30, 2025 5 :00am Chief Complaint Admit Date MCC LAB WORK November 15, 2024 5:00am MCC LAB WORK November 27, 2024 5:00am MCC LAB WORK December 28 5:00am MCC LAB WORK January 02 5:00am MCC LAB WORK January 03 6:10am MCC LAB WORK January 25, 2025 5 :00am MCC LAB WORK January 30, 2025 5 :00am LABWORKJ February 06, 2025 5:0 0am LABWORK February 11, 2025 5:0 0am Chief Complaint Admit Date MCC LAB WORK November 27, 2024 5:00am MCC LAB WORK December 28 5:00am MCC LAB WORK January 02 5:00am MCC LAB WORK January 03 6:10am MCC LAB WORK January 25, 2025 5 :00am MCC LAB WORK January 30, 2025 5 :00am LABWORKJ February 06, 2025 5:0 0am LABWORK February 11, 2025 5:0 0am LABWORK February 27, 2025 5:0 0am Chief Complaint Admit Date MCC LAB WORK November 27, 2024 5:00am MCC LAB WORK December 28 5:00am MCC LAB WORK January 02 5:00am MCC LAB WORK January 03 6:10am MCC LAB WORK January 25, 2025 5 :00am MCC LAB WORK January 30, 2025 5 :00am LABWORKJ February 06, 2025 5:0 0am LABWORK February 11, 2025 5:0 0am MCC LAB WORK February 25, 2025 5 :00am LABWORK February 27, 2025 5:0 0am Chief Complaint Admit Date MCC LAB WORK December 28 5:00am MCC LAB WORK January 02 5:00am MCC LAB WORK January 03 6:10am MCC LAB WORK January 25, 2025 5 :00am MCC LAB WORK January 30, 2025 5 :00am LABWORKJ February 06, 2025 5:0 0am LABWORK February 11, 2025 5:0 0am MCC LAB WORK February 25, 2025 5 :00am LABWORK February 27, 2025 5:0 0am MCC LAB WORK March 04, 2025 1 0:30pm Chief Complaint Admit Date MCC LAB WORK January 25, 2025 5 :00am MCC LAB WORK January 30, 2025 5 :00am LABWORKJ February 06, 2025 5:0 0am LABWORK February 11, 2025 5:0 0am MCC LAB WORK February 25, 2025 5 :00am LABWORK February 27, 2025 5:0 0am MCC LAB WORK March 04, 2025 1 0:30pm LABWORK March 27, 2025 5:00a m MCC LAB WORK April 01, 2025 5:0 0am [...] skin eruption Procedures CONSULT TO DERMATOLOGY OFFICE/OUTPATIENT [facility] 60 MINUTES Dorota Smith MD [address] [address] Referral ID Status Reason Start Date Expiration Date Visits Requested Visits Authorized [id number] Authorized PCP Requested Referral 09/14/2024 09/14/2025 1 1 Additional Source Comments INFORMATION SOURCE (unrecogn ized section and content) DATE CREATED AUTHOR 06/07/2018 [facility] DATE CREATED AUTHOR AUTHOR'S ORGANIZ ATION 04/02/2019 [facility] DATE CREATED AUTHOR AUTHOR'S ORGANIZ ATION 03/30/2020 [facility] DATE CREATED AUTHOR AUTHOR'S ORGANIZ ATION 08/05/2020 Johan Newton [facility] DATE CREATED AUTHOR AUTHOR'S ORGANIZ ATION 11/21/2020 [facility] DATE CREATED AUTHOR AUTHOR'S ORGANIZ ATION 09/18/2024 [facility] DATE CREATED AUTHOR AUTHOR'S ORGANIZ ATION 02/27/2025 [facility] DATE CREATED AUTHOR AUTHOR'S ORGANIZ ATION 06/11/2025 [facility] DATE CREATED AUTHOR AUTHOR'S ORGANIZ ATION 06/21/2025 [facility] (unrecognized sect ion and content) [...] 10 MG IV RITUXIMAB Anthony Olivares MD [address] [place] [address] 1, Kidney Med Main Infusion Chair [address] [place] [address] Referral ID Status Reason Start Date Expiration Date V isits Requested Visits Authorized [id number] Authorized 03/31/2022 11/13/2022 99 99 Reason Comments Shortness of Breath Reason Comments Follow Up Reason Comments Infusion iv rituximab Reason Comments Radio Main J1 Specialty Diagnoses / Procedures Referred By Contac t Referred To Contact XR IMAGING Diagnoses Chronic pain of right knee Procedures XR KNEE LIMITED 2V AP/LAT RIGHT RADIOLOGIC EXAMINATION KNEE 1/2 VIEWS Luz Daniel MD [address] [place] [id number] Xr Imaging Referral ID Status Reason Start Date Expiration Date V isits Requested Visits Authorized [id number] Closed Auto-Generate d Referral 02/26/2022 03/28/2023 1 1 Reason Comments Rheumatoid Arthritis Reason Comments Follow Up RA- hands, stiff and swollen Reason Comments NO SHOW Reason Comments Patient Update Reason Comments Appointment Specialty Diagnoses / Procedures Referred By Ulises duncan Referred To Contact Diagnoses 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) Procedures INJ RUXIENCE, 10 MG Anthony Olivares MD [address] [place] [address] [facility] [address] [place] [address] Referral ID Status Reason Start Date Expiration Date V isits Requested Visits Authorized [id number] Authorized 12/27/2023 12/29/2024 24 24 Reason Comments [...] or prosecute any alcohol or drug abuse patient.[facility] the event this information is protected by the Federal Confidentiality of Alcohol and Drug Abuse Patient Records regulations: The Federal rules restrict any use of the information to criminally investigate or prosecute any alcohol or drug abuse patient.[facility] the event this information is protected by the Federal Confidentiality of Alcohol and Drug Abuse Patient Records regulations: The Federal rules restrict any use of the information to criminally investigate or prosecute any alcohol or drug abuse patient.[facility] the event this information is protected by the Federal Confidentiality of Alcohol and Drug Abuse Patient Records regulations: The Federal rules restrict any use of the information to criminally investigate or prosecute any alcohol or drug abuse patient.[facility] the event this information is protected by the Federal Confidentiality of Alcohol and Drug Abuse Patient Records regulations: The Federal rules restrict any use of the information to criminally investigate or prosecute any alcohol or drug abuse patient.[facility] the event this information is protected by the Federal Confidentiality of Alcohol and Drug Abuse Patient Records regulations: The Federal rules restrict any use of the information to criminally investigate or prosecute any alcohol or drug abuse patient.[facility] the event this information is protected by the Federal Confidentiality of Alcohol and Drug Abuse Patient Records regulations: The Federal rules restrict any use of the information to criminally investigate or prosecute any alcohol or drug abuse patient.[facility] the event this information is protected by the Federal Confidentiality of Alcohol and Drug Abuse Patient Records regulations: The Federal rules restrict any use of the information to criminally investigate or prosecute any alcohol or drug abuse patient.[facility] the event this information is protected by the Federal Confidentiality of Alcohol and Drug Abuse Patient Records regulations: The Federal rules restrict any use of the information to criminally investigate or prosecute any alcohol or drug abuse patient.[facility] the event this information is protected by the Federal Confidentiality of Alcohol and Drug Abuse Patient Records regulations: The Federal rules restrict any use of the information to criminally investigate or prosecute any alcohol or drug abuse patient.[facility] Hospital[facility] the event this information is protected by the Federal Confidentiality of Alcohol and Drug Abuse Patient Records regulations: The Federal rules restrict any use of the information to criminally investigate or prosecute any alcohol or drug abuse patient.[facility] Hospital[facility] the event this information is protected by the Federal Confidentiality of Alcohol and Drug Abuse Patient Records regulations: The Federal rules restrict any use of the information to criminally investigate or prosecute any alcohol or drug abuse patient.[facility] Hospital[facility] the event this information is protected by the Federal Confidentiality of Alcohol and Drug Abuse Patient Records regulations: The Federal rules restrict any use of the information to criminally investigate or prosecute any alcohol or drug abuse patient.[facility] Hospital[facility] the event this information is protected by the Federal Confidentiality of Alcohol and Drug Abuse Patient Records regulations: The Federal rules restrict any use of the information to criminally investigate or prosecute any alcohol or drug abuse patient.[facility] Hospital[facility] the event this information is protected by the Federal Confidentiality of Alcohol and Drug Abuse Patient Records regulations: The Federal rules restrict any use of the information to criminally investigate or prosecute any alcohol or drug abuse patient.[facility] Hospital[facility] the event this information is protected by the Federal Confidentiality of Alcohol and Drug Abuse Patient Records regulations: The Federal rules restrict any use of the information to criminally investigate or prosecute any alcohol or drug abuse patient.[facility] Hospital[facility] the event this information is protected by the Federal Confidentiality of Alcohol and Drug Abuse Patient Records regulations: The Federal rules restrict any use of the information to criminally investigate or prosecute any alcohol or drug abuse patient.[facility] Hospital[facility] the event this information is protected by the Federal Confidentiality of Alcohol and Drug Abuse Patient Records regulations: The Federal rules restrict any use of the information to criminally investigate or prosecute any alcohol or drug abuse patient.[facility] Hospital[facility] the event this information is protected by the Federal Confidentiality of Alcohol and Drug Abuse Patient Records regulations: The Federal rules restrict any use of the information to criminally investigate or prosecute any alcohol or drug abuse patient.[facility] Hospital[facility] the event this information is protected by the Federal Confidentiality of Alcohol and Drug Abuse Patient Records regulations: The Federal rules restrict any use of the information to criminally investigate or prosecute any alcohol or drug abuse patient.[facility] Hospital[facility] the event this information is protected by the Federal Confidentiality of Alcohol and Drug Abuse Patient Records regulations: The Federal rules restrict any use of the information to criminally investigate or prosecute any alcohol or drug abuse patient.[facility] HospitalIn the event this information is protected by the Federal Confidentiality of Alcohol and Drug Abuse Patient Records regulations: The Federal rules restrict any use of the information to criminally investigate or prosecute any alcohol or drug abuse patient.[facility] HospitalIn the event this information is protected by the Federal Confidentiality of Alcohol and Drug Abuse Patient Records regulations: The Federal rules restrict any use of the information to criminally investigate or prosecute any alcohol or drug abuse patient.[facility] HospitalIn the event this information is protected by the Federal Confidentiality of Alcohol and Drug Abuse Patient Records regulations: The Federal rules restrict any use of the information to criminally investigate or prosecute any alcohol or drug abuse patient.[facility] HospitalIn the event this information is protected by the Federal Confidentiality of Alcohol and Drug Abuse Patient Records regulations: The Federal rules restrict any use of the information to criminally investigate or prosecute any alcohol or drug abuse patient.[facility] HospitalIn the event this information is protected by the Federal Confidentiality of Alcohol and Drug Abuse Patient Records regulations: The Federal rules restrict any use of the information to criminally investigate or prosecute any alcohol or drug abuse patient.[facility] HospitalIn the event this information is protected by the Federal Confidentiality of Alcohol and Drug Abuse Patient Records regulations: The Federal rules restrict any use of the information to criminally investigate or prosecute any alcohol or drug abuse patient.[facility] HospitalIn the event this information is protected by the Federal Confidentiality of Alcohol and Drug Abuse Patient Records regulations: The Federal rules restrict any use of the information to criminally investigate or prosecute any alcohol or drug abuse patient.[facility] HospitalIn the event this information is protected by the Federal Confidentiality of Alcohol and Drug Abuse Patient Records regulations: The Federal rules restrict any use of the information to criminally investigate or prosecute any alcohol or drug abuse patient.[facility]In the event this information is protected by the Federal Confidentiality of Alcohol and Drug Abuse Patient Records regulations: The Federal rules restrict any use of the information to criminally investigate or prosecute any alcohol or drug abuse patient.[facility] HospitalIn the event this information is protected by the Federal Confidentiality of Alcohol and Drug Abuse Patient Records regulations: The Federal rules restrict any use of the information to criminally investigate or prosecute any alcohol or drug abuse patient.[facility] HospitalIn the event this information is protected by the Federal Confidentiality of Alcohol and Drug Abuse Patient Records regulations: The Federal rules restrict any use of the information to criminally investigate or prosecute any alcohol or drug abuse patient.[facility] HospitalIn the event this information is protected by the Federal Confidentiality of Alcohol and Drug Abuse Patient Records regulations: The Federal rules restrict any use of the information to criminally investigate or prosecute any alcohol or drug abuse patient.[facility] HospitalIn the event this information is protected by the Federal Confidentiality of Alcohol and Drug Abuse Patient Records regulations: The Federal rules restrict any use of the information to criminally investigate or prosecute any alcohol or drug abuse patient.[facility] HospitalIn the event this information is protected by the Federal Confidentiality of Alcohol and Drug Abuse Patient Records regulations: The Federal rules restrict any use of the information to criminally investigate or prosecute any alcohol or drug abuse patient.[facility] Care Teams (unrecognized sec tion and content) Construction Secretary Relationship Specialty Start Date End Date Elgin Bal MD [address] [place], [place] [address] PCP - General Family Practice 12/25/12 Anthony Olivares MD [address] [place] [address] Railcar Foreman Nephrology 03/19/21 Anthony Olivares MD [address] [facility] [place] [address] Primary Staff Physician Nephrology 12/10/21 Construction Secretary Relationship Specialty Start Date End Date Elgin Bal MD [address] [place], [place] [id number] PCP - General Family Practice 12/25/12 Anthony Olivares MD [address] [place] [address] Rail[employer] Foreman Nephrology 03/19/21 Anthony Olivares MD [address] [place] [address] Primary Staff Physician Nephrology 12/10/21 Construction Secretary Relationship Specialty Start Date End Date Elgin Bal MD [address] [place] [address] PCP - General Family Practice 12/25/12 Anthony Olivares MD [address] [place] [address] [employer]man Nephrology 03/19/21 Anthony Olivares MD [address] [place] [address] Primary Staff Physician Nephrology 12/10/21 Construction Secretary Relationship Specialty Start Date End Date Elgin Bal MD [address] [place] [address] PCP - General Family Practice 12/25/12 Anthony Olivares MD [address] [place] [address] Rail[employer] Foreman Nephrology 03/19/21 Anthony Olivares MD [address] [place] [address] Primary Staff Physician Nephrology 12/10/21 Construction Secretary Relationship Specialty Start Date End Date Elgin Bal MD [address] [place] [address] PCP - General Family Practice 12/25/12 Anthony Olivares MD [address] [place] [address] [employer]man Nephrology 03/19/21 Anthony Olivares MD [address] [place] [address] Primary Staff Physician Nephrology 12/10/21 Construction Secretary Relationship Specialty Start Date End Date Elgin Bal MD [address] [place] [address] PCP - General Family Practice 12/25/12 Anthony Olivares MD [address] [place] [address] Rail[employer] Foreman Nephrology 03/19/21 Anthony Olivares MD [address] [place] [address] Primary Staff Physician Nephrology 12/10/21 Construction Secretary Relationship Specialty Start Date End Date Elgin Bal MD [address] [place] [address] PCP - General Family Medicine 12/25/12 Anthony Olivares MD [address] [place] [address] [employer]man Nephrology 03/19/21 Anthony Olivares MD [address] [place] [address] Primary Staff Physician Nephrology 12/10/21 Construction Secretary Relationship Specialty Start Date End Date Elgin Bal MD [address] [place] [address] PCP - General Family Medicine 12/25/12 Anthony Olivares MD [address] [place] [address] Railcar Foreman Nephrology 03/19/21 Anthony Olivares MD [address] [place] [address] Primary Staff Physician Nephrology 12/10/21 Construction Secretary Relationship Specialty Start Date End Date Elgin Bal MD [address] [place] [address] PCP - General Family Medicine 12/25/12 Anthony Olivares MD [address] [place], [place] [id number] Rail[employer]man Nephrology 03/19/21 Anthony Olivares MD [address] [place] [address] Primary Staff Physician Nephrology 12/10/21 Construction Secretary Relationship Specialty Start Date End Date Elgni Bal MD [address] [place] [address] PCP - General Family Medicine 12/25/12 Anthony Olivares MD [address] [place] [address] Rail[employer]man Nephrology 03/19/21 Anthony Olivares MD [address] [place] [address] Primary Staff Physician Nephrology 12/10/21 Team Status: [...] CHANDLER Attending Provider, Referring Prov ider Active Construction Secretary Relationship Specialty Start Date End Date Elgin Bal MD [address] [place], [place] [id number] PCP - General Family Medicine 12/25/12 Anthony Olivares MD [address] [place], [place] [id number] [employer] Nephrology 03/19/21 Anthony Olivares MD [address] [place], [place] [id number] Primary Staff Physician Nephrology 12/10/21 Team Status: Inactive Member Role Status Dates Dr. Elgin Bal MD Primary Care Provider Active Dr. Alfredo Phipps MD Attending Provider Active Team Status: Active Member Role Status Dates Dr. Elgin Bal MD Primary Care Provider Active Adam CHANDLER Attending Provider, Referring Prov ider Active Construction Secretary Relationship Specialty Start Date End Date Elgin Bla MD [address] [place] [address] PCP - General Family Medicine 12/25/12 Anthony Olivares MD [facility] [place], [place] [id number] Rail[employer] Foreman Nephrology 03/19/21 Anthony Olivares MD [address] [place] [address] Primary Staff Physician Nephrology 12/10/21 Construction Secretary Relationship Specialty Start Date End Date Elgin Bal MD [address] [place] [address] PCP - General Family Medicine 12/25/12 Anthony Olivares MD [address] [place], [place] [id number] Rail[employer]man Nephrology 03/19/21 Anthony Olivares MD [address] [place], [place] [address] Primary Staff Physician Nephrology 12/10/21 Construction Secretary Relationship Specialty Start Date End Date Alfredo Phipps MD [address] [facility] [address] [place] [address] PCP - General Internal Medicine 10/19/23 Anthony Olivares MD [address] [place] [address] Rail[employer]man Nephrology 03/19/21 Anthony Olivares MD [address] [place] [address] Primary Staff Physician Nephrology 12/10/21 Construction Secretary Relationship Specialty Start Date End Date Alfredo Phipps MD [address] [facility] [address] [place], [place] [id number] PCP - General Internal Medicine 10/19/23 Anthony Olivares MD [address] [place] [address] Railcar Foreman Nephrology 03/19/21 Anthony Olivares MD [address] [place] [address] Primary Staff Physician Nephrology 12/10/21 Construction Secretary Relationship Specialty Start Date End Date Alfredo Phipps MD [address] [facility] [address] [place] [address] PCP - General Internal Medicine 10/19/23 Anthony Olivares MD [address] [place] [address] Railcar Foreman Nephrology 03/19/21 Anthony Olivares MD [address] [place] [address] Primary Staff Physician Nephrology 12/10/21 Construction Secretary Relationship Specialty Start Date End Date Alfredo Phipps MD [address] [facility] [address] [place] [address] PCP - General Internal Medicine 10/19/23 Anthony Olivares MD [address] [place] [address] Railcar Foreman Nephrology 03/19/21 Anthony Olivares MD [address] [place] [address] Primary Staff Physician Nephrology 12/10/21 Construction Secretary Relationship Specialty Start Date End Date Alfredo Phipps MD [address] [facility] [address] [place] [address] PCP - General Internal Medicine 10/19/23 Anthony Olivares MD [address] [place] [address] Railcar Foreman Nephrology 03/19/21 Anthony Olivares MD [address] [place] [address] Primary Staff Physician Nephrology 12/10/21 Construction Secretary Relationship Specialty Start Date End Date Alfredo Phipps MD [address] [facility] [address] [place] [address] PCP - General Internal Medicine 10/19/23 Anthony Olivares MD [address] [place] [address] Railcar Foreman Nephrology 03/19/21 Anthony Olivares MD [address] [place] [address] Primary Staff Physician Nephrology 12/10/21 Construction Secretary Relationship Specialty Start Date End Date Alfredo Phipps MD [address] [facility] [address] [place] [address] PCP - General Internal Medicine 10/19/23 Anthony Olivares MD [address] [place] [address] Railcar Foreman Nephrology 03/19/21 Anthony Olivares MD [address] [place] [address] Primary Staff Physician Nephrology 12/10/21 Construction Secretary Relationship Specialty Start Date End Date Alfredo Phipps MD [address] [facility] [address] [place] [address] PCP - General Internal Medicine 10/19/23 Anthony Olivares MD [address] [place] [address] Railcar Foreman Nephrology 03/19/21 Anthony Olivares MD [address] [facility] [place] [address] Primary Staff Physician Nephrology 12/10/21 Construction Secretary Relationship Specialty Start Date End Date Alfredo Phipps MD [address] [facility] [address] [place] [address] PCP - General Internal Medicine 10/19/23 Anthony Olivares MD [address] [place] [address] Railcar Foreman Nephrology 03/19/21 Anthony Olivares MD [address] [place] [address] Primary Staff Physician Nephrology 12/10/21 Construction Secretary Relationship Specialty Start Date End Date Alfredo Phipps MD [address] [facility] [address] [place] [address] PCP - General Internal Medicine 10/19/23 Anthony Olivares MD [address] [place] [address] Railcar Foreman Nephrology 03/19/21 Anthony Olivares MD [address] [place] [address] Primary Staff Physician Nephrology 12/10/21 Construction Secretary Relationship Specialty Start Date End Date Alfredo Phipps MD [address] [facility] [address] [place] [address] PCP - General Internal Medicine 10/19/23 Anthony Olivares MD [address] [place] [address] Railcar Foreman Nephrology 03/19/21 Anthony Olivares MD [address] [place] [address] Primary Staff Physician Nephrology 12/10/21 Construction Secretary Relationship Specialty Start Date End Date Alfredo Phipps MD [address] [facility] [address] [place] [address] PCP - General Internal Medicine 10/19/23 Anthony Olivares MD [address] [place] [address] Railcar Foreman Nephrology 03/19/21 Anthoyn Olivares MD [address] [place] [address] Primary Staff Physician Nephrology 12/10/21 Construction Secretary Relationship Specialty Start Date End Date Alfredo Phipps MD [address] [facility] [address] [place] [address] PCP - General Internal Medicine 10/19/23 Anthony Olivares MD [address] [place], [place] [address] Rail[employer] Foreman Nephrology 03/19/21 Anthony Olivares MD [address] [place], [place] [address] Primary Staff Physician Nephrology 12/10/21 Construction Secretary Relationship Specialty Start Date End Date Alfredo Phipps MD [address] [facility] [address] [place] [address] PCP - General Internal Medicine 10/19/23 Anthony Olivares MD [address] [place], [place] [address] Railcar Foreman Nephrology 03/19/21 Anthony Olivares MD [address] [place], [place] [id number] Primary Staff Physician Nephrology 12/10/21 Team Status: [...] Inactive Member Role Status Dates Dr. Elgin Bla MD Primary Care Provider Active Start: January [...] January 30, 2025 End: January 30, 2025 Construction Secretary Relationship Specialty Start Date End Date Alfredo Phipps MD [address] [place] [address] [place] [address] PCP - General Internal Medicine 10/19/23 Anthony Olivares MD [address] [place] [address] Railcar Foreman Nephrology 03/19/21 Anthony Olivares MD [address] [place] [address] Primary Staff Physician Nephrology 12/10/21 Team Status: [...] Provider Active St art: May 02, 2025 Construction Secretary Relationship Specialty Start Date End Date Alfredo Phipps MD [facility] [address] [place] [address] PCP - General Internal Medicine 10/19/23 Anthony Olivares MD [address] [place] [address] Railcar Foreman Nephrology 03/19/21 Anthony Olivares MD [address] [place] [address] Primary Staff Physician Nephrology 12/10/21 Construction Secretary Relationship Specialty Start Date End Date Alfredo Phipps MD [address] [facility] [address] [place] [address] PCP - General Internal Medicine 10/19/23 Anthony Olivares MD [address] [place], [place] [address] Rail[employer]man Nephrology 03/19/21 Anthony Olivares MD [address] [place] [address] Primary Staff Physician Nephrology 12/10/21 Construction Secretary Relationship Specialty Start Date End Date Alfredo Phipps MD [address] [facility] [address] [place] [address] PCP - General Internal Medicine 10/19/23 Anthony Olivares MD [address] [place] [address] Railcar Foreman Nephrology 03/19/21 Anthony Olivares MD [address] [place] [address] Primary Staff Physician Nephrology 12/10/21 [...] BE BASED ON THE PRIMARY CLINICAL RECORDS. [facility]. provides no warranty or guarantee of the accuracy or completeness of information in this document.
[2025-06-27 11:07] LABS: Uric Acid 5.8 mg/dL (3.5-7.2)
== END ==
LOC: OLS.SANC 05:00
PROVIDERS: PCP Family Medicine; Visit Provider Family Medicine
DX: F25.0 Schizoaffective disorder, bipolar type (principal); M1A.00X0 Idiopathic chronic gout, unspecified site, without tophus (tophi); I10 Essential (primary) hypertension; Z79.899 Other long term (current) drug therapy
CPT/HCPCS: 36415; 84550

== ENCOUNTER → 2025-07-01 | Outpatient (REF) | payer MEDICARE, MEDICAID, SELFPAY ==
[2025-07-01 09:17] LABS: AST(SGOT) 11 U/L (<=37); Alanine Aminotransfer ALT/SGPT 13 U/L (<=46); Albumin, Serum 3.5 g/dL (3.4-4.8); Alkaline Phosphatase 88 U/L (40-129); Bilirubin, Direct 0.09 mg/dL (0.00-0.30); Globulin 2.4 g/dL (2.2-4.2)
== END ==
LOC: OLS.SANC 06:38
PROVIDERS: PCP Family Medicine; Referring Provider Family Medicine; Visit Provider Family Medicine
DX: E11.9 Type 2 diabetes mellitus without complications (principal); D64.9 Anemia, unspecified; E78.5 Hyperlipidemia, unspecified
CPT/HCPCS: 36415; 80076

== ENCOUNTER → 2025-07-02 | Outpatient (REF) | payer MEDICARE, MEDICAID, SELFPAY ==
[2025-07-02 09:37] LABS: Lithium 0.56 mmol/L (0.60-1.20)
== END ==
LOC: OLS.SANC 05:00
PROVIDERS: PCP Family Medicine
DX: F25.9 Schizoaffective disorder, unspecified (principal); Z79.899 Other long term (current) drug therapy
CPT/HCPCS: 36415; 80178

== ENCOUNTER → 2025-07-29 | Outpatient (REF) | payer MEDICARE, MEDICAID, SELFPAY ==
[2025-07-29 08:16] LABS: Hematocrit 38.6 % (40-54); Hemoglobin 12.9 g/dL (13.0-16.5); Immature Granulocytes Count 0.040 X10^3/uL (0.0-0.0); Mean Corp Hgb Conc 33.4 g/dL (32-36); Mean Corpuscular Volume 89.8 fL (80-94); Mean Platelet Vol. 9.6 fl (6.2-12.0); NRBC Flagged by Analyzer 0 % (0-5); Platelet Count 231 K/mm3 (150-450); RBC Distribution Width CV 12.6 % (11.6-14.6); RBC Distribution Width SD 41.1 fl (35.1-43.9); Red Blood Count 4.30 M/mm3 (4.6-6.2); White Blood Count 9.0 K/mm3 (4.4-11.0)
[2025-07-29 08:27] LABS: AST(SGOT) 12 U/L (<=37); Alanine Aminotransfer ALT/SGPT 12 U/L (<=46); Albumin, Serum 3.6 g/dL (3.4-4.8); Alkaline Phosphatase 91 U/L (40-129); Anion Gap 10 (5-15); BUN 26 mg/dL (4-19); BUN/Creat Ratio 11.1 RATIO (10-20); Calcium,Total 9.2 mg/dL (7.6-11.0); Carbon Dioxide 22.2 mmol/L (21.0-32.0); Chloride 108 mmol/L (98-108); Globulin 2.4 g/dL (2.2-4.2); Glucose 136 mg/dL (70-99); Potassium 4.5 mmol/L (3.3-5.1)
[2025-07-31 08:59] LABS: Vitamin D,25 Hydroxy 33.6 ng/mL (30-100)
== END ==
LOC: OLS.SANC 05:00
PROVIDERS: PCP Family Medicine; Visit Provider Internal Medicine
DX: I12.9 Hypertensive chronic kidney disease with stage 1 through stage 4 chronic kidney disease, or unspecified chronic kidney disease (principal); N18.30 Chronic kidney disease, stage 3 unspecified; E11.22 Type 2 diabetes mellitus with diabetic chronic kidney disease; E78.5 Hyperlipidemia, unspecified; M62.89 Other specified disorders of muscle
CPT/HCPCS: 36415; 80053; 82306; 84100; 85025

== ENCOUNTER → 2025-08-02 | Outpatient (REF) | payer MEDICARE, MEDICAID, SELFPAY ==
[2025-08-02 08:45] LABS: Lithium 0.61 mmol/L (0.60-1.20)
== END ==
LOC: OLS.SANC 05:00
PROVIDERS: PCP Family Medicine; Visit Provider Family Medicine
DX: I10 Essential (primary) hypertension (principal); E11.9 Type 2 diabetes mellitus without complications; E78.5 Hyperlipidemia, unspecified; D64.9 Anemia, unspecified; Z79.899 Other long term (current) drug therapy
CPT/HCPCS: 36415; 80178

== ENCOUNTER → 2025-08-09 | Outpatient (REF) | payer MEDICARE, MEDICAID, SELFPAY ==
--- OUTSIDE RECORDS SUMMARY | 2025-08-09 04:32 | XMS RPT_ITS | CCD ---
Author Organization [facility] Care Team Providers Care Tank Setter Helper Name Role Phone HODA BERNABE MD Admitting [...] Provider ALFREDO PHIPPS Primary Care Unavaila ble DOROTA SMITH Referring Unavailable DOROTA SMITH Attending Unavailable Mally BROWNING, Dr. Eisenberg Primary Care Provider Adam Marley Attending Provider Unavailyuko Bal MD, Dr. Eisenberg Primary Care Provider Adam Marley Attending Provider Unavaila ble Desire CHANDLER, Alfredo Attending Provider Unavailab ANTHONY Ragland Referring Unavailable KATSAROS, ALFREDO SPICER Primary Care Unavaila catracho OLIVARES, ANTHONY Rivera Referring Unavailable KATSAROS, ALFREDO SPICER Primary Care Unavaila ANTHONY Shell Referring Unavailable KATSAROS, ALFREDO SPICER Primary Care Unavailyuko Bal MD, Dr. Eisenberg Primary Care Provider Adam Marley Attending Provider Unavailyuko Bal MD, Dr. Eisenberg Primary Care Provider Adam Marley Attending Provider Unavailyuko aBl MD, Dr. Eisenberg Primary Care Provider Adam Marley Attending Provider UnavailANTHONY Aleman Attending Unavailable SELF Referring Unavailable KATSAROSALFREDO Primary Care Unavaila ANTHONY Shell Attending Unavailable ANTHONY OLIVARES Referring Unavailable KATSAROS, ALFREDO SPICER Primary Care Unavaila ble [place], [facility] Primary Care Unavailable Gunning RAMESH, Adam Attending Unavailable Wandaning RAMESH, Adam Attending Unavailable Mally, [facility] Primary Care Unavailable Gunning RAMESH, Adam Attending Unavailable Mally, [facility] Primary Care Unavailable Gunning RAMESH, Adam Attending Unavailable Mally, [facility] Primary Care Unavailable [place], [facility] Primary Care Unavailable Gunning RAMESH, Adam Attending Unavailable Wandaning RAMESH, Adam Attending Unavailable [place], [facility] Primary Care Unavailable Gunning OLS, Adam Attending Unavailable [place], [facility] Primary Care Unavailable Gunning OLS, Adam Attending Unavailable Mally, [facility] Primary Care Unavailable Gunning OLS, Adam Attending Unavailable [place], [facility] Primary Care Unavailable Gunning RAMESH, Adam Attending Unavailable [place], [facility] Primary Care Unavailable Katsaros RAMESH, Alfredo Attending Unavailable [place], [facility] Primary Care Unavailable Katsaros OLS, Alfredo Attending Unavailable [place], [facility] Primary Care Unavailable Gunning RAMESH, Adam Attending Unavailable [place], [facility] Primary Care Unavailable Katsaros OLS, Alfredo Attending Unavailable [place], [facility] Primary Care Unavailable Katsaros OLS, Alfredo Attending Unavailable Mally, [facility] Primary Care Unavailable [place], [facility] Primary Care Unavailable Gunning OLS, Adam Attending Unavailable Wilnerkksayraeladioa Lasha CHANDLER Attending Unavail able [place], [facility] Primary Care Unavailable [place], [facility] Primary Care Unavailable Katsaros OLS, Alfredo Attending Unavailable Gunning OLS, Adam Attending Unavailable [place], [facility] Primary Care Unavailable Gunning OLS, Adam Attending Unavailable Mally, [facility] Primary Care Unavailable Gunning OLS, Adam Attending Unavailable Mally, [facility] Primary Care Unavailable Katsaros OLS, Peter Attending Unavailable Mally, [facility] Primary Care Unavailable Gunning OLS, Adam Attending Unavailable Mally, [facility] Primary Care Unavailable Gunning OLS, Adam Attending Unavailable [place], [facility] Primary Care Unavailable Katsaros OLS, Peter Attending Unavailable Mally, [facility] Primary Care Unavailable Gunning OLS, Adam Attending Unavailable Mally, [facility] Primary Care Unavailable Gunning OLS, Adam Attending Unavailable Mally, [facility] Primary Care Unavailable Gunning OLS, Adam Attending Unavailable Mally, [facility] Primary Care Unavailable Gunning OLS, Adam Referring Unavailable Gunning OLS, Adam Attending Unavailable [place], [facility] Primary Care Unavailable Katsaros OLS, Peter Attending Unavailable [place], [facility] Primary Care Unavailable Mally, [facility] Primary Care Unavailable Gunning OLS, Adam Attending Unavailable Mally, [facility] Primary Care Unavailable Katsaros OLS, Peter Attending Unavailable [place], [facility] Primary Care Unavailable Gunning OLS, Adam Attending Unavailable Allergies Allergy Classification Reported Allergen(s) Allergy Type Date of Onset Reaction(s) Facility Anti-Epileptic Agents (1 source) lamoTRIgine Drug Allergy 8 [facility] Work Phone: Bee pollen (1 source) Bee pollen Drug Allergy 0 Other: See [facility] Corticosteroids (1 source) fluticasone Drug Allergy 3 Other: See [facility] Work Phone: OLANZapine (1 source) OLANZapine Drug Allergy 7 [facility] (20 sources) Bee pollen; Translations: [BEE POLLEN] Drug Allergy 0 Other: See [facility] [place], [place] (20 sources) fluticasone Drug [place]ergy [place] lamoTRIgine; Translations: [LAMOTRIGINE] Drug Allergy 8 [place], [place] (20 sources) OLANZapine; Translations: [OLANZAPINE] Drug Allergy 7 [place], [place] (20 sources) fluticasone; Translations: [FLUTICASONE PROPIONATE] Drug Allergy 3 Other: See Comments [facility] Work Phone: (1 source) fluticasone Drug Allergy 0 [facility] (1 source) lamoTRIgine Drug Allergy 9 [facility] (1 source) OLANZapine Drug Allergy 0 [facility] Medications Current Medications Medication [...] th every 8 hours as needed. 500mg [id number] actuat albuterol 0.09 mg/actuat metered dose [...] (20 sources) Xanthine Oxidase Inhibitor Start: 05-23-20 take 1 tablet by mouth once daily [...] Start: 02-14-2020 take 1 capsule by mo [facility] once daily Cholecalciferol (Vitamin D3) [...] Take 1 tablet by [place] three times daily as needed. dexamethasone 6 mg oral tablet (2 sources) Corticosteroid Start: 10-29-2020 End: 11-08-2020 take 6 mg by mouth once daily 6 mg, Oral, DAILY, First dose on Tue10/29/20 at 0900, For 10 doses Start: 10-28-2020 End: 10-28-2020 dexamethasone (DECADRON) inj ection 6 mg dextromethorphan hydrobromide 2 mg/ml / guaiFENesin 20 mg/ml oral suspension (1 source) Uncompetitive W-erymmn-Q-aspartate Receptor Antagonist, Sigma-1 Agonist Start: 10-28-2020 take 5 mL by mouth every four hours as needed for cough 5 mL, Oral, EVERY 4 HOURS PRN, Cough, Starting Tue10/28/20 at 1936 docosahexaenoic acid 120 mg / eicosapentaenoic acid 180 mg oral capsule (1 source) take 1 capsule by mouth once daily [place]-3 1000 MG CAPS Take 1 capsule by [...] Active Start: 03-18-2021 [facility] furosemide (LASIX) 40 mg tablet [...] 2020 12:00am take 3 tablets by mo [facility] once daily furosemide (LASIX) 20 MG [...] Active Start: 03-06-2021 take 1 capsule by [facility] once daily lithium carbonate (ESKALITH) 300 mg capsule Take 300 mg by mouth once daily. 03/06/2021 Active Start: 10-28-2020 take 300 mg by mouth once tommy y 300 mg, Oral, NIGHTLY, First dose on Tue10/28/20 at 2100 Maintain adequate fluid and sodium intake Start: 04-02-2018 take 1 tablet by donovan th once daily at bedtime [place] Carbonate 300 MG tablet extended release Active 300 mg PO TWICE A DAY April 02, 2018 12:00am [facility] Comment on above: Take 150 mg by [...] on above: Take 1 tablet by [place] two times a day. 24 hr metoprolol [...] [place]ovan once daily. omega-3 acid ethyl esters (half-way) 1000 mg oral capsule (1 source) Start: 10-28-2020 take 1 capsule by mouth once daily 1 capsule, Oral, DAILY, First dose on Tue10/28/20 at 2000 [place]-3 Fatty Acids-Fish Oil (20 sources) Start: 02-14-2020 [place]-3 Fatty Acids-Fish Oil Active 1 EACH PO DAILY February 14, 2020 10:03am Start: 02-14-2020 [place]-3 Fatty Acids-Fish Oil Active 1 EACH PO DAILY February 13, 2020 11:00pm Start: 02-14-2020 [place]-3 Fatty Acids-Fish Oil Active 1 EACH PO DAILY February 14, 2020 12:00am [place]-3 Fatty Acids-Fish Oil 1 EACH capsule (11 sources) Start: 02-14-2020 [place]-3 Fatty Acids-Fish Oil 1 EACH capsule Active 1 NMA PO DAILY February 14, 2020 12:00am Start: 02-14-2020 [place]-3 Fatty Acids-Fish Oil 1 EACH capsule Active 1 NMA PO DAILY February 13, 2020 11:00pm Oxvka-7-AXM-EPA-Fish Oil 1,0 00 mg (120 mg-180 mg) cap (20 sources) take 1 capsule by mouth once daily Ohxga-8-XXR-EPA-Fish Oil 1,000 mg (120 mg-180 mg) cap Take 1 capsule by mouth once daily. Active take 1 capsule by mouth once berna ly Mylzy-2-RNJ-EPA-Fish Oil 1,000 mg (120 mg- 180 mg) [...] (1 source) Proton Pump Inhibitor Start: 10-29-20 20 take 40 mg by mouth once daily before breakfast 40 mg, Oral, DAILY BEFORE BREAKFAST, First dose on Tue10/29/20 at 0700 Do not crush or break. Substituted for Omeprazole (PRILOSEC). polyethylene glycol 3350 [id number] mg powder for oral solution (1 source) [...] Start: 02-14-2020 take 2 tablets by mo ut once daily Quetiapine 300 MG tablet Active [...] 0 Active take 2 tablets by mo [facility] once daily QUEtiapine (SEROQUEL XR) 300 MG extended release tablet Take 600 mg by mouth nightly 0 Active Comment on above: Take 1 tablet by [facility] daily at bedtime. Take 500 mg by [...] Comment on above: Take 2 tablets by [facility] as directed. prior to Rituximab infusion. [...] mg, ORAL, ONCE, 1 dose, O n 02/12/25 at 0930 Start: 08-09-2024 End: 08-09-2024 take 1 dose by mouth once 50 mg, ORAL, ONCE, 1 dose, O n [place] 08/09/24 at 0700 Start: 03-30-2022 End: 03-30-2023 diphenhydrAMINE (BENADRYL) 5 0 mg capsule Indications: Granulomatosis with polyangiitis, unspecified whether renal involvement (HCC) Take 1 capsule by mouth as directed. prior to Rituximab infusion. 1 capsule 0 03/30/2022 03/30/2023 Active Comment on above: Take 1 capsule by [facility] as directed. prior to Rituximab infusion. [...] ously as directed. prior to Rituximab infusion. Tqbyj-4-YNH-EPA-Fish Oil (FISH OIL) 1,000 mg (120 mg-180 mg) cap (6 sources) take 1 capsule by mouth once daily Vqnbd-7-PRT-EPA-Fish Oil (FISH OIL) 1,000 mg (120 mg-180 [...] mL (RUXIENCE) (4 sources) Start: 025 End: 025 1,000 mg, INTRAVENOUS, ONCE, 1 dose, On [...] 03-02-2019 Episodic Other aftercare (3 sources) Other director of claims (current) drug therapy; Translations: [Other director of claims (current) drug therapy] Onset: 11-14-2019 Episodic Other and ill-defined heart disease (20 sources) Mild left ventricular systolic dysfunction; Translations: [Other ill-defined heart diseases] Onset: 08-20-2019 03-25-2020 Chronic Other circulatory disease (20 sources) Vasculitis; Translations: [Arteritis, unspecified] Onset: 08-11-2016 11-10-2021 Chronic Other congenital anomalies (20 sources) Porokeratosis; Translations: [Other specified congenital malformations of skin] Onset: 02-03-2010 01-10-2011 Chronic Other connective tissue disease (1 source) Other specified disorders of muscle; Translations: [Other specified disorders of muscle] Onset: 08-07-2025 Episodic Other lower respiratory disease (1 source) Hypoxia; [...] excess calories] Onset: 07-14-2015 08-23-2019 Chronic Other skin disorders (1 source) Eruption; [...] Name Value Interpretation Reference Range Facility Lithiumon 08-02-2025 LI 0.61 mmol/L Normal 0.60-1.20 [facility] Comment on above: Order Comment: 111.2 Performed By: #### L 100.0500, L500.4050, L501.1400 #### [facility] [place], [address] Vitamin D,25 Hydroxyon 07-31 Vitamin D 25-OH 33.6 ng/mL Normal 30-100 [facility] Comment on above: Order Comment: URIC ACID ADDED TO 05/24/25 LABWORK Result Comment: Moriah min D Status Deficiency: <20 ng/mL (50nmol/L) Insufficiency: 20-30 ng/mL (50-75 nmol/L) Sufficiency: 30-100 ng/mL (75-250 nmol/L) Toxicity: >100 ng/mL (>250 nmol/L) Performed By: #### L 100.0500, L500.4050, [id number] #### [facility] [address] [place], [address] CBC W/Diff, Automatedon 07-15-2024 Absolute Lymph 1.68 X10 3/uL Normal 0.83-4.51 [facility] Comment on above: Order Comment: URIC ACID ADDED TO 05/24/25 LABWORK Performed By: #### L 100.0500, L500.4050, [id number] #### [facility] [address] [place], [address] Absolute Neut 5.6 X10 3/uL Normal 2.0-7.7 [facility] Comment on above: Order Comment: URIC ACID ADDED TO 05/24/25 LABWORK Performed By: #### L 100.0500, L500.4050, [id number] #### [facility] [address] [place], [address] Basophils/100 WBC (Bld) 1.2 % High 0-1 [facility] Comment on above: Order Comment: URIC ACID ADDED TO 05/24/25 LABWORK Performed By: #### L 100.0500, L500.4050, [id number] #### [facility] [address] [place], [address] Eosinophils/100 WBC (Bld) 4.2 % Normal 0-5 [facility] Comment on above: Order Comment: URIC ACID ADDED TO 05/24/25 LABWORK Performed By: #### L 100.0500, L500.4050, [id number] #### [facility] [address] [place], [address] Erythrocyte distribution width (RBC) [Ratio] 12.6 % Normal 11.6-14.6 [facility] Comment on above: Order Comment: URIC ACID ADDED TO 05/24/25 LABWORK Performed By: #### L 100.0500, L500.4050, [id number] #### [facility] [address] [place], [address] Hematocrit (Bld) [Volume fraction] 38.6 % Low 40-54 [facility] Comment on above: Order Comment: URIC ACID ADDED TO 05/24/25 LABWORK Performed By: #### L 100.0500, L500.4050, [id number] #### [facility] [address] [place], [address] Hemoglobin (Bld) [Mass/Vol] 12.9 g/dL Low 13.0-16.5 [facility] Comment on above: Order Comment: URIC ACID ADDED TO 05/24/25 LABWORK Performed By: #### L 100.0500, L500.4050, [id number] #### [facility] [address] [place], [address] IG% 0.400 Normal 0.0-0.9 [facility] Comment on above: Order Comment: URIC ACID ADDED TO 05/24/25 LABWORK Result Comment: IG% - Immature Granulocytes (promyelocytes, myelocytes and metamyelocytes) > 1% indicates that a LEFT SHIFT is Present. Performed By: #### L 100.0500, L500.4050, L501.1400 #### [facility] [address] [place], [address] Lymphocytes/100 WBC (Bld) 18.7 % Low 19-41 [facility] Comment on above: Order Comment: URIC ACID ADDED TO 05/24/25 LABWORK Performed By: #### L 100.0500, L500.4050, [id number] #### [facility] [address] [place], [address] MCH (RBC) [Entitic mass] 30.0 pg Normal 27.0-32.0 [facility] Comment on above: Order Comment: URIC ACID ADDED TO 05/24/25 LABWORK Performed By: #### L 100.0500, L500.4050, [id number] #### [facility] [address] [place], [address] MCHC (RBC) [Mass/Vol] 33.4 g/dL Normal 32-36 [facility] Comment on above: Order Comment: URIC ACID ADDED TO 05/24/25 LABWORK Performed By: #### L 100.0500, L500.4050, [id number] #### [facility] [address] [place], [address] MCV (RBC) [Entitic vol] 89.8 fL Normal 80-94 [facility] Comment on above: Order Comment: URIC ACID ADDED TO 05/24/25 LABWORK Performed By: #### L 100.0500, L500.4050, [id number] #### [facility] [address] [place], [address] Monocytes/100 WBC (Bld) 13.2 % High 0-10 [facility] Comment on above: Order Comment: URIC ACID ADDED TO 05/24/25 LABWORK Performed By: #### L 100.0500, L500.4050, [id number] #### [facility] [address] [place], [address] Neutrophils/100 WBC (Bld) 62.3 % Normal 47-70 [facility] Comment on above: Order Comment: URIC ACID ADDED TO 05/24/25 LABWORK Performed By: #### L 100.0500, L500.4050, [id number] #### [facility] [address] [place], [address] Nucleated RBC (Bld) [#/Vol] 0 10*3/uL Normal 0-5 [facility] Comment on above: Order Comment: URIC ACID ADDED TO 05/24/25 LABWORK Performed By: #### L 100.0500, L500.4050, [id number] #### [facility] [address] [place], [address] Platelet mean volume (Bld) [Entitic vol] 9.6 fL Normal 6.2-12.0 [facility] Comment on above: Order Comment: URIC ACID ADDED TO 05/24/25 LABWORK Performed By: #### L 100.0500, L500.4050, [id number] #### [facility] [address] [place], [address] Platelets (Bld) [#/Vol] 231 10*3/uL Normal 150-450 [facility] Comment on above: Order Comment: URIC ACID ADDED TO 05/24/25 LABWORK Performed By: #### L 100.0500, L500.4050, [id number] #### [facility] [address] [place], [address] RBC (Bld) [#/Vol] 4.30 10*6/uL Low 4.6-6.2 [facility] Comment on above: Order Comment: URIC ACID ADDED TO 05/24/25 LABWORK Performed By: #### L 100.0500, L500.4050, [id number] #### [facility] [address] [place], [address] RDW SD 41.1 fl Normal 35.1-43.9 [facility] Comment on above: Order Comment: URIC ACID ADDED TO 05/24/25 LABWORK Performed By: #### L 100.0500, L500.4050, [id number] #### [facility] [address] [place], [address] WBC (Bld) [#/Vol] 9.0 10*3/uL Normal 4.4-11.0 [facility] Comment on above: Order Comment: URIC ACID ADDED TO 05/24/25 LABWORK Performed By: #### L 100.0500, L500.4050, [id number] #### [facility] [address] [place], [address] Comprehensive Metabolic Prof ilon 07-29-2025 Albumin [Mass/Vol] 3.6 g/dL Normal 3.4-4.8 [facility] Comment on above: Order Comment: URIC ACID ADDED TO 05/24/25 LABWORK Performed By: #### L 100.0500, L500.4050, [id number] #### [facility] [address] [place], [address] Albumin/Globulin [Mass ratio] 1.5 {ratio} Normal 0.9-2.4 [facility] Comment on above: Order Comment: URIC ACID ADDED TO 05/24/25 LABWORK Performed By: #### L 100.0500, L500.4050, [id number] #### [facility] [address] [place], [address] ALK PHOS 91 U/L Normal 40-129 [facility] Comment on above: Order Comment: URIC ACID ADDED TO 05/24/25 LABWORK Performed By: #### L 100.0500, L500.4050, [id number] #### [facility] [address] [place], [address] ALT [Catalytic activity/Vol] 12 U/L Normal <=46 [facility] Comment on above: Order Comment: URIC ACID ADDED TO 05/24/25 LABWORK Performed By: #### L 100.0500, L500.4050, [id number] #### [facility] [address] [place], [address] AST [Catalytic activity/Vol] 12 U/L Normal <=37 [facility] Comment on above: Order Comment: URIC ACID ADDED TO 05/24/25 LABWORK Performed By: #### L 100.0500, L500.4050, L501.1400 #### [facility] [address] [place], [address] Bilirubin [Mass/Vol] 0.15 mg/dL Normal 0.00-1.30 [facility] Comment on above: Order Comment: URIC ACID ADDED TO 05/24/25 LABWORK Performed By: #### L 100.0500, L500.4050, [id number] #### [facility] [address] [place], [address] BUN/CRE 11.1 RATIO Normal 10-20 [facility] Comment on above: Order Comment: URIC ACID ADDED TO 05/24/25 LABWORK Performed By: #### L 100.0500, L500.4050, [id number] #### [facility] [address] [place], [address] Calcium [Mass/Vol] 9.2 mg/dL Normal 7.6-11.0 [facility] Comment on above: Order Comment: URIC ACID ADDED TO 05/24/25 LABWORK Performed By: #### L 100.0500, L500.4050, L501.1400 #### [facility] [address] [place], [address] Chloride [Moles/Vol] 108 mmol/L Normal 98-108 [facility] Comment on above: Order Comment: URIC ACID ADDED TO 05/24/25 LABWORK Performed By: #### L 100.0500, L500.4050, L501.1400 #### [facility] [address] [place], [address] CO2 [Moles/Vol] 22.2 mmol/L Normal 21.0-32.0 [facility] Comment on above: Order Comment: URIC ACID ADDED TO 05/24/25 LABWORK Performed By: #### L 100.0500, L500.4050, L501.1400 #### [facility] [address] [place], [address] Creatinine [Mass/Vol] 2.36 mg/dL High 0.70-1.20 [facility] Comment on above: Order Comment: URIC ACID ADDED TO 05/24/25 LABWORK Performed By: #### L 100.0500, L500.4050, L501.1400 #### [facility] [address] [place], [address] GAP 10 Normal 5-15 [facility] Comment on above: Order Comment: URIC ACID ADDED TO 05/24/25 LABWORK Performed By: #### L 100.0500, L500.4050, L501.1400 #### [facility] [address] [place], [address] GFR/1.73 sq M.predicted among non-blacks MDRD (S/P/Bld) [Vol rate/Area] 30 mL/min/{1.73_m2} Low >60 [facility] Comment on above: Order Comment: URIC ACID ADDED TO 05/24/25 LABWORK Result Comment: mL/m in/1.73m2 CKD-EPI Creatinine Equation (2020) Performed By: #### L 100.0500, L500.4050, L501.1400 #### [facility] [address] [place], [address] Globulin (S) [Mass/Vol] 2.4 g/dL Normal 2.2-4.2 [facility] Comment on above: Order Comment: URIC ACID ADDED TO 05/24/25 LABWORK Performed By: #### L 100.0500, L500.4050, L501.1400 #### [facility] [address] [place], [address] Glucose [Mass/Vol] 136 mg/dL High 70-99 [facility] Comment on above: Order Comment: URIC ACID ADDED TO 05/24/25 LABWORK Performed By: #### L 100.0500, L500.4050, [id number] #### [facility] [address] [place], [address] Potassium [Moles/Vol] 4.5 mmol/L Normal 3.3-5.1 [facility] Comment on above: Order Comment: URIC ACID ADDED TO 05/24/25 LABWORK Performed By: #### L 100.0500, L500.4050, [id number] #### [facility] [address] [place], [address] Sodium [Moles/Vol] 140 mmol/L Normal 133-145 [facility] Comment on above: Order Comment: URIC ACID ADDED TO 05/24/25 LABWORK Performed By: #### L 100.0500, L500.4050, L501.1400 #### [facility] [address] [place], [address] T PROT 6.0 g/dL Normal 5.9-8.4 [facility] Comment on above: Order Comment: URIC ACID ADDED TO 05/24/25 LABWORK Performed By: #### L 100.0500, L500.4050, [id number] #### [facility] [address] [place], [address] Urea nitrogen [Mass/Vol] 26 mg/dL High 4-19 [facility] Comment on above: Order Comment: URIC ACID ADDED TO 05/24/25 LABWORK Performed By: #### L 100.0500, L500.4050, L501.1400 #### [facility] [address] [place], [address] Phosphoruson 07-29-2025 Phosphate [Mass/Vol] 4.6 mg/dL High 2.7-4.5 [facility] Comment on above: Order Comment: URIC ACID ADDED TO 05/24/25 LABWORK Performed By: #### L 100.0500, L500.4050, L501.1400 #### [facility] [address] [place], [address] Lithiumon 07-02-2025 LI 0.56 mmol/L Low 0.60-1.20 [facility] Comment on above: Order Comment: 111.2 Performed By: #### L 501.2300, L500.4050, L501.9060, L100.0100 #### [facility] [address] [place], [address] Liver Profileon 07-01-2025 Albumin [Mass/Vol] 3.5 g/dL Normal 3.4-4.8 [facility] Comment on above: Performed By: #### L 501.9060 #### [facility] [address] [place], [address] ALK PHOS 88 U/L Normal 40-129 [facility] Comment on above: Performed By: #### L 501.9060 #### [facility] [address] [place], [address] ALT [Catalytic activity/Vol] 13 U/L Normal <=46 [facility] Comment on above: Performed By: #### L 501.9060 #### [facility] [address] [place], [address] AST [Catalytic activity/Vol] 11 U/L Normal <=37 [facility] Comment on above: Performed By: #### L 501.9060 #### [facility] [address] [place], [address] Bilirubin [Mass/Vol] 0.16 mg/dL Normal 0.00-1.30 [facility] Comment on above: Performed By: #### L 501.9060 #### [facility] [address] [place], [address] Bilirubin.direct [Mass/Vol] 0.09 mg/dL Normal 0.00-0.30 [facility] Comment on above: Performed By: #### L 501.9060 #### [facility] [address] [place], [address] Globulin (S) [Mass/Vol] 2.4 g/dL Normal 2.2-4.2 [facility] Comment on above: Performed By: #### L 501.9060 #### [facility] [address] [place], [address] T PROT 5.8 g/dL Low 5.9-8.4 [facility] Comment on above: Performed By: #### L 501.9060 #### [facility] [address] [place], [address] Uric Acidon 06-27-2025 URIC 5.8 mg/dL Normal 3.5-7.2 [facility] Comment on above: Order Comment: 111.2 20250501 Result Comment: The drugs N-Acetylcysteine and Metamizole may falsely depress this assay. Performed By: #### L 501.9060 #### [facility] [address] [place], [address] Protein+Creatinine Ratio,Uri neon 06-20-2025 PROT:CRE RATIO 227 mg/g CRE High 0-200 [facility] Comment on above: Order Comment: 111.2 20250501 Performed By: #### L 501.9060 #### [facility] [address] [place], [address] Protein (U) [Mass/Vol] 7.7 mg/dL Normal 0.0-12.0 [place] Comment on above: Order Comment: 111.2 20250501 Performed By: #### L 501.9060 #### [facility] [address] [place], [address] UR CREAT 33.80 mg/dL Low 39.00-259. 00 [facility] Comment on above: Order Comment: 111.2 [id number] 2019 Performed By: #### L 501.9060 #### [facility] [address] [place], [address] CBC W/Diff, Automatedon 08-0 Absolute Lymph 1.75 X10 3/uL Normal 0.83-4.51 [facility] Comment on above: Order Comment: URIC ACID ADDED TO 05/24/25 LABWORK Performed By: #### L 100.0500, L500.4050, L501.1400 #### [facility] [address] [place], [address] Absolute Neut 5.4 X10 3/uL Normal 2.0-7.7 [facility] Comment on above: Order Comment: URIC ACID ADDED TO 05/24/25 LABWORK Performed By: #### L 100.0500, L500.4050, L501.1400 #### [facility] [address] [place], [address] Basophils/100 WBC (Bld) 1.0 % Normal 0-1 [facility] Comment on above: Order Comment: URIC ACID ADDED TO 05/24/25 LABWORK Performed By: #### L 100.0500, L500.4050, L501.1400 #### [facility] [address] [place], [address] Eosinophils/100 WBC (Bld) 6.0 % High 0-5 [facility] Comment on above: Order Comment: URIC ACID ADDED TO 05/24/25 LABWORK Performed By: #### L 100.0500, L500.4050, L501.1400 #### [facility] [address] [place], [address] Erythrocyte distribution width (RBC) [Ratio] 12.7 % Normal 11.6-14.6 [facility] Comment on above: Order Comment: URIC ACID ADDED TO 05/24/25 LABWORK Performed By: #### L 100.0500, L500.4050, L501.1400 #### [facility] [address] [place], [address] Hematocrit (Bld) [Volume fraction] 39.2 % Low 40-54 [facility] Comment on above: Order Comment: URIC ACID ADDED TO 05/24/25 LABWORK Performed By: #### L 100.0500, L500.4050, L501.1400 #### [facility] [address] [place], [address] Hemoglobin (Bld) [Mass/Vol] 12.8 g/dL Low 13.0-16.5 [facility] Comment on above: Order Comment: URIC ACID ADDED TO 05/24/25 LABWORK Performed By: #### L 100.0500, L500.4050, L501.1400 #### [facility] [address] [place], [address] IG% 0.500 Normal 0.0-0.9 [facility] Comment on above: Order Comment: URIC ACID ADDED TO 05/24/25 LABWORK Result Comment: IG% - Immature Granulocytes (promyelocytes, myelocytes and metamyelocytes) > 1% indicates that a LEFT SHIFT is Present. Performed By: #### L 100.0500, L500.4050, L501.1400 #### [facility] [address] [place], [address] Lymphocytes/100 WBC (Bld) 20.1 % Normal 19-41 [facility] Comment on above: Order Comment: URIC ACID ADDED TO 05/24/25 LABWORK Performed By: #### L 100.0500, L500.4050, L501.1400 #### [facility] [address] [place], [address] MCH (RBC) [Entitic mass] 30.0 pg Normal 27.0-32.0 [facility] Comment on above: Order Comment: URIC ACID ADDED TO 05/24/25 LABWORK Performed By: #### L 100.0500, L500.4050, L501.1400 #### [facility] [address] [place], [address] MCHC (RBC) [Mass/Vol] 32.7 g/dL Normal 32-36 [facility] Comment on above: Order Comment: URIC ACID ADDED TO 05/24/25 LABWORK Performed By: #### L 100.0500, L500.4050, L501.1400 #### [facility] [address] [place], [address] MCV (RBC) [Entitic vol] 91.8 fL Normal 80-94 [facility] Comment on above: Order Comment: URIC ACID ADDED TO 05/24/25 LABWORK Performed By: #### L 100.0500, L500.4050, L501.1400 #### [facility] [address] [place], [address] Monocytes/100 WBC (Bld) 10.7 % High 0-10 [facility] Comment on above: Order Comment: URIC ACID ADDED TO 05/24/25 LABWORK Performed By: #### L 100.0500, L500.4050, L501.1400 #### [facility] [address] [place], [address] Neutrophils/100 WBC (Bld) 61.7 % Normal 47-70 [facility] Comment on above: Order Comment: URIC ACID ADDED TO 05/24/25 LABWORK Performed By: #### L 100.0500, L500.4050, L501.1400 #### [facility] [address] [place], [address] Nucleated RBC (Bld) [#/Vol] 0 10*3/uL Normal 0-5 [facility] Comment on above: Order Comment: URIC ACID ADDED TO 05/24/25 LABWORK Performed By: #### L 100.0500, L500.4050, L501.1400 #### [facility] [address] [place], [address] Platelet mean volume (Bld) [Entitic vol] 9.5 fL Normal 6.2-12.0 [facility] Comment on above: Order Comment: URIC ACID ADDED TO 05/24/25 LABWORK Performed By: #### L 100.0500, L500.4050, L501.1400 #### [facility] [address] [place], [address] Platelets (Bld) [#/Vol] 247 10*3/uL Normal 150-450 [facility] Comment on above: Order Comment: URIC ACID ADDED TO 05/24/25 LABWORK Performed By: #### L 100.0500, L500.4050, L501.1400 #### [facility] [address] [place], [address] RBC (Bld) [#/Vol] 4.27 10*6/uL Low 4.6-6.2 [facility] Comment on above: Order Comment: URIC ACID ADDED TO 05/24/25 LABWORK Performed By: #### L 100.0500, L500.4050, L501.1400 #### [facility] [address] [place], [address] RDW SD 42.5 fl Normal 35.1-43.9 [facility] Comment on above: Order Comment: URIC ACID ADDED TO 05/24/25 LABWORK Performed By: #### L 100.0500, L500.4050, L501.1400 #### [facility] [address] [place], [address] WBC (Bld) [#/Vol] 8.7 10*3/uL Normal 4.4-11.0 [facility] Comment on above: Order Comment: URIC ACID ADDED TO 05/24/25 LABWORK Performed By: #### L 100.0500, L500.4050, L501.1400 #### [facility] [address] [place], [address] Comprehensive Metabolic Prof ilon 06-19-2025 Albumin [Mass/Vol] 3.6 g/dL Normal 3.4-4.8 [facility] Comment on above: Order Comment: URIC ACID ADDED TO 05/24/25 LABWORK Performed By: #### L 100.0500, L500.4050, L501.1400 #### [facility] [address] [place], [address] Albumin/Globulin [Mass ratio] 1.4 {ratio} Normal 0.9-2.4 [facility] Comment on above: Order Comment: URIC ACID ADDED TO 05/24/25 LABWORK Performed By: #### L 100.0500, L500.4050, L501.1400 #### [facility] [address] [place], [address] ALK PHOS 91 U/L Normal 40-129 [facility] Comment on above: Order Comment: URIC ACID ADDED TO 05/24/25 LABWORK Performed By: #### L 100.0500, L500.4050, L501.1400 #### [facility] [address] [place], [address] ALT [Catalytic activity/Vol] 8 U/L Normal <=46 [facility] Comment on above: Order Comment: URIC ACID ADDED TO 05/24/25 LABWORK Performed By: #### L 100.0500, L500.4050, L501.1400 #### [facility] [address] [place], [address] AST [Catalytic activity/Vol] 14 U/L Normal <=37 [facility] Comment on above: Order Comment: URIC ACID ADDED TO 05/24/25 LABWORK Performed By: #### L 100.0500, L500.4050, L501.1400 #### [facility] [address] [place], [address] Bilirubin [Mass/Vol] 0.22 mg/dL Normal 0.00-1.30 [facility] Comment on above: Order Comment: URIC ACID ADDED TO 05/24/25 LABWORK Performed By: #### L 100.0500, L500.4050, L501.1400 #### [facility] [address] [place], [address] BUN/CRE 11.3 RATIO Normal 10-20 [facility] Comment on above: Order Comment: URIC ACID ADDED TO 05/24/25 LABWORK Performed By: #### L 100.0500, L500.4050, L501.1400 #### [facility] [address] [place], [address] Calcium [Mass/Vol] 9.3 mg/dL Normal 7.6-11.0 [facility] Comment on above: Order Comment: URIC ACID ADDED TO 05/24/25 LABWORK Performed By: #### L 100.0500, L500.4050, L501.1400 #### [facility] [address] [place], [address] Chloride [Moles/Vol] 105 mmol/L Normal 98-108 [facility] Comment on above: Order Comment: URIC ACID ADDED TO 05/24/25 LABWORK Performed By: #### L 100.0500, L500.4050, L501.1400 #### [facility] [address] [place], [address] CO2 [Moles/Vol] 19.9 mmol/L Low 21.0-32.0 [facility] Comment on above: Order Comment: URIC ACID ADDED TO 05/24/25 LABWORK Performed By: #### L 100.0500, L500.4050, L501.1400 #### [facility] [address] [place], [address] Creatinine [Mass/Vol] 2.26 mg/dL High 0.70-1.20 [facility] Comment on above: Order Comment: URIC ACID ADDED TO 05/24/25 LABWORK Performed By: #### L 100.0500, L500.4050, L501.1400 #### [facility] [address] [place], [address] GAP 13 Normal 5-15 [facility] Comment on above: Order Comment: URIC ACID ADDED TO 05/24/25 LABWORK Performed By: #### L 100.0500, L500.4050, L501.1400 #### [facility] [address] [place], [address] GFR/1.73 sq M.predicted among non-blacks MDRD (S/P/Bld) [Vol rate/Area] 32 mL/min/{1.73_m2} Low >60 [facility] Comment on above: Order Comment: URIC ACID ADDED TO 05/24/25 LABWORK Result Comment: mL/m in/1.73m2 CKD-EPI Creatinine Equation (2020) Performed By: #### L 100.0500, L500.4050, L501.1400 #### [facility] [address] [place], [address] Globulin (S) [Mass/Vol] 2.5 g/dL Normal 2.2-4.2 [facility] Comment on above: Order Comment: URIC ACID ADDED TO 05/24/25 LABWORK Performed By: #### L 100.0500, L500.4050, L501.1400 #### [facility] [address] [place], [address] Glucose [Mass/Vol] 122 mg/dL High 70-99 [facility] Comment on above: Order Comment: URIC ACID ADDED TO 05/24/25 LABWORK Performed By: #### L 100.0500, L500.4050, L501.1400 #### [facility] [address] [place], [address] Potassium [Moles/Vol] 4.3 mmol/L Normal 3.3-5.1 [facility] Comment on above: Order Comment: URIC ACID ADDED TO 05/24/25 LABWORK Performed By: #### L 100.0500, L500.4050, L501.1400 #### [facility] [address] [place], [address] Sodium [Moles/Vol] 137 mmol/L Normal 133-145 [facility] Comment on above: Order Comment: URIC ACID ADDED TO 05/24/25 LABWORK Performed By: #### L 100.0500, L500.4050, L501.1400 #### [facility] [address] [place], [address] T PROT 6.1 g/dL Normal 5.9-8.4 [facility] Comment on above: Order Comment: URIC ACID ADDED TO 05/24/25 LABWORK Performed By: #### L 100.0500, L500.4050, L501.1400 #### [facility] [address] [place], [address] Urea nitrogen [Mass/Vol] 26 mg/dL High 4-19 [facility] Comment on above: Order Comment: URIC ACID ADDED TO 05/24/25 LABWORK Performed By: #### L 100.0500, L500.4050, L501.1400 #### [facility] [address] [place], [address] Lithiumon 06-19-2025 LI 0.56 mmol/L Low 0.60-1.20 [facility] Comment on above: Order Comment: URIC ACID ADDED TO 05/24/25 LABWORK Performed By: #### L 100.0500, L500.4050, L501.1400 #### [facility] [address] [place], [address] Phosphoruson 06-19-2025 Phosphate [Mass/Vol] 4.5 mg/dL Normal 2.7-4.5 [facility] Comment on above: Order Comment: URIC ACID ADDED TO 05/24/25 LABWORK Performed By: #### L 100.0500, L500.4050, L501.1400 #### [facility] [address] [place], [address] EST Glomerular Filtration Ra meredith 06-05-2025 GFR/1.73 sq M.predicted among non-blacks MDRD (S/P/Bld) [Vol rate/Area] 30 mL/min/{1.73_m2} Low >60 [facility] Comment on above: Order Comment: 111.2 20250501 Result Comment: mL/m in/1.73m2 CKD-EPI Creatinine Equation (2020) Performed By: #### L 501.9060 #### [facility] [address] [place], [address] Urine Cultureon 05-29-2025 URC Mixed Gram Positive Organisms Oxford Count 11,000-25,000 MIXC Mixed contaminants. Submit a new specimen if indicated. Normal [facility] Comment on above: Performed By: #### L 501.1400 #### [facility] [address] [place], [address] CBC W/Diff, Automatedon 05-14 Absolute Lymph 2.10 X10 3/uL Normal 0.83-4.51 [facility] Comment on above: Order Comment: 111.2 20250501 Performed By: #### L 501.9060 #### [facility] [address] [place], [address] Absolute Neut 5.2 X10 3/uL Normal 2.0-7.7 [facility] Comment on above: Order Comment: 111.2 20250501 Performed By: #### L 501.9060 #### [facility] [address] [place], [address] Basophils/100 WBC (Bld) 1.0 % Normal 0-1 [facility] Comment on above: Order Comment: 111.2 20250501 Performed By: #### L 501.9060 #### [facility] [address] [place], [address] Eosinophils/100 WBC (Bld) 5.5 % High 0-5 [facility] Comment on above: Order Comment: 111.2 20250501 Performed By: #### L [id number] #### [facility] [address] [place], [address] Erythrocyte distribution width (RBC) [Ratio] 12.5 % Normal 11.6-14.6 [facility] Comment on above: Order Comment: 111.2 20250501 Performed By: #### L 501.9060 #### [facility] [address] [place], [address] Hematocrit (Bld) [Volume fraction] 39.7 % Low 40-54 [facility] Comment on above: Order Comment: 111.2 20250501 Performed By: #### L [id number] #### [facility] [address] [place], [address] Hemoglobin (Bld) [Mass/Vol] 13.3 g/dL Normal 13.0-16.5 [facility] Comment on above: Order Comment: 111.2 20250501 Performed By: #### L 501.9060 #### [facility] [address] [place], [address] IG% 0.700 Normal 0.0-0.9 [facility] Comment on above: Order Comment: 111.2 20250501 Result Comment: IG% - Immature Granulocytes (promyelocytes, myelocytes and metamyelocytes) > 1% indicates that a LEFT SHIFT is Present. Performed By: #### L 501.9060 #### [facility] [address] [place], [address] Lymphocytes/100 WBC (Bld) 23.5 % Normal 19-41 [facility] Comment on above: Order Comment: 111.2 20250501 Performed By: #### L 501.9060 #### [facility] [address] [place], [address] MCH (RBC) [Entitic mass] 30.2 pg Normal 27.0-32.0 [facility] Comment on above: Order Comment: 111.2 20250501 Performed By: #### L 501.9060 #### [facility] [address] [place], [address] MCHC (RBC) [Mass/Vol] 33.5 g/dL Normal 32-36 [facility] Comment on above: Order Comment: 111.2 20250501 Performed By: #### L 501.9060 #### [facility] [address] [place], [address] MCV (RBC) [Entitic vol] 90.0 fL Normal 80-94 [facility] Comment on above: Order Comment: 111.2 20250501 Performed By: #### L 501.9060 #### [facility] [address] [place] [place], [address] Monocytes/100 WBC (Bld) 11.1 % High 0-10 [facility] Comment on above: Order Comment: 111.2 20250501 Performed By: #### L 501.9060 #### [facility] [address] [place], [address] Neutrophils/100 WBC (Bld) 58.2 % Normal 47-70 [facility] Comment on above: Order Comment: 111.2 20250501 Performed By: #### L 501.9060 #### [facility] [address] [place], [address] Nucleated RBC (Bld) [#/Vol] 0 10*3/uL Normal 0-5 [facility] Comment on above: Order Comment: 111.2 20250501 Performed By: #### L 501.9060 #### [facility] [address] [place], [address] Platelet mean volume (Bld) [Entitic vol] 9.2 fL Normal 6.2-12.0 [facility] Comment on above: Order Comment: 111.2 20250501 Performed By: #### L 501.9060 #### [facility] [address] [place], [address] Platelets (Bld) [#/Vol] 235 10*3/uL Normal 150-450 [facility] Comment on above: Order Comment: 111.2 20250501 Performed By: #### L 501.9060 #### [facility] [address] [place], [address] RBC (Bld) [#/Vol] 4.41 10*6/uL Low 4.6-6.2 [facility] Comment on above: Order Comment: 111.20250501 Performed By: #### L 501.9060 #### [facility] [address] [place], [address] RDW SD 41.1 fl Normal 35.1-43.9 [facility] Comment on above: Order Comment: 111.2 20250501 Performed By: #### L 501.9060 #### [facility] [address] [place], [address] WBC (Bld) [#/Vol] 8.9 10*3/uL Normal 4.4-11.0 [facility] Comment on above: Order Comment: 111.2 20250501 Performed By: #### L 501.9060 #### [facility] [address] [place], [address] Protein+Creatinine Ratio,Uri neon 05-27-2025 PROT:CRE RATIO 172 mg/g CRE Normal 0-200 [facility] Comment on above: Performed By: #### L 501.1400 #### [facility] [address] [place], [address] PROTEIN,UR.RAN. < 6.0 Normal 0.0-12.0 [facility] Comment on above: Performed By: #### L 501.1400 #### [facility] [address] [place] [place], [address] UR CREAT 25.50 mg/dL Low 39.00-259. 00 [facility] Comment on above: Performed By: #### L 501.1400 #### [facility] [address] [place], [address] Uric Acidon 05-27-2025 URIC 6.3 mg/dL Normal 3.5-7.2 [facility] Comment on above: Order Comment: URIC ACID ADDED TO 05/24/25 LABWORK Result Comment: The drugs N-Acetylcysteine and Metamizole may falsely depress this assay. Performed By: #### L 100.0500, L500.4050, L501.1400 #### [facility] [address] [place], [address] Urinalysis, Routine (Dipstic k)on 05-27-2025 BILIRUBIN URINE Negative Normal Negative [facility] Comment on above: Order Comment: 111.2 20250501 Performed By: #### L 501.9060 #### [facility] [address] [place], [address] Clarity (U) Clear Normal Clear [facility] Comment on above: Order Comment: 111.2 20250501 Performed By: #### L 501.9060 #### [facility] [address] [place], [address] Color (U) Straw Normal Yellow [facility] Comment on above: Order Comment: 111.2 20250501 Performed By: #### L 501.9060 #### [facility] [address] [place], [address] GLUCOSE, UR Normal Normal Normal [facility] Comment on above: Order Comment: 111.2 20250501 Performed By: #### L 501.9060 #### [facility] [address] [place], [address] KETONE UR Negative Normal Negative [facility] Comment on above: Order Comment: 111.2 20250501 Performed By: #### L 501.9060 #### [facility] [address] [place], [address] LEUK ESTERASE 500 /ul Abnormal Negative [facility] Comment on above: Order Comment: 111.2 20250501 Performed By: #### L 501.9060 #### [facility] [address] [place], [address] Nitrite Ql (U) Negative Normal Negative [facility] Comment on above: Order Comment: 111.2 20250501 Performed By: #### L 501.9060 #### [facility] [address] [place], [address] OCCULT BLOOD-UR Negative Normal Negative [facility] Comment on above: Order Comment: 111.2 20250501 Performed By: #### L 501.9060 #### [facility] [address] [place], [address] pH UR 6.5 Normal 5.0 - 8.0 [facility] Comment on above: Order Comment: 111.2 20250501 Performed By: #### L 501.9060 #### [facility] [address] [place], [address] PROT DIPSTX Negative Normal Negative [facility] Comment on above: Order Comment: 111.2 20250501 Performed By: #### L 501.9060 #### [facility] [address] [place], [address] SP.GR. DIPSTX 1.005 Normal 1.002-1.03 0 [facility] Comment on above: Order Comment: 111.2 20250501 Performed By: #### L [id number] #### [facility] [address] [place], [address] UROBILI Normal Normal Normal [facility] Comment on above: Order Comment: 111.2 20250501 Performed By: #### L [id number] #### [facility] [address] [place], [address] CBC-Complete Blood Cnt No Di ffon 05-24-2025 Erythrocyte distribution width (RBC) [Ratio] 12.7 % Normal 11.6-14.6 [facility] Comment on above: Order Comment: 111.2 Performed By: #### L 100.0500, L500.4050, L501.1400 #### [facility] [address] [place], [address] Hematocrit (Bld) [Volume fraction] 39.2 % Low 40-54 [facility] Comment on above: Order Comment: 111.2 Performed By: #### L 100.0500, L500.4050, L501.1400 #### [facility] [address] [place], [address] Hemoglobin (Bld) [Mass/Vol] 12.9 g/dL Low 13.0-16.5 [facility] Comment on above: Order Comment: 111.2 Performed By: #### L 100.0500, L500.4050, L501.1400 #### [facility] [address] [place], [address] MCH (RBC) [Entitic mass] 30.1 pg Normal 27.0-32.0 [facility] Comment on above: Order Comment: 111.2 Performed By: #### L 100.0500, L500.4050, L501.1400 #### [facility] [address] [place], [address] MCHC (RBC) [Mass/Vol] 32.9 g/dL Normal 32-36 [facility] Comment on above: Order Comment: 111.2 Performed By: #### L 100.0500, L500.4050, L501.1400 #### [facility] [address] [place], [address] MCV (RBC) [Entitic vol] 91.6 fL Normal 80-94 [facility] Comment on above: Order Comment: 111.2 Performed By: #### L 100.0500, L500.4050, L501.1400 #### [facility] [address] [place], [address] Platelet mean volume (Bld) [Entitic vol] 9.2 fL Normal 6.2-12.0 [facility] Comment on above: Order Comment: 111.2 Performed By: #### L 100.0500, L500.4050, L501.1400 #### [facility] [address] [place], [address] Platelets (Bld) [#/Vol] 247 10*3/uL Normal 150-450 [facility] Comment on above: Order Comment: 111.2 Performed By: #### L 100.0500, L500.4050, L501.1400 #### [facility] [address] [place], [address] RBC (Bld) [#/Vol] 4.28 10*6/uL Low 4.6-6.2 [facility] Comment on above: Order Comment: 111.2 Performed By: #### L 100.0500, L500.4050, L501.1400 #### [facility] [address] [place], [address] RDW SD 42.1 fl Normal 35.1-43.9 [facility] Comment on above: Order Comment: 111.2 Performed By: #### L 100.0500, L500.4050, L501.1400 #### [facility] [address] [place], [address] WBC (Bld) [#/Vol] 10.3 10*3/uL Normal 4.4-11.0 [facility] Comment on above: Order Comment: 111.2 Performed By: #### L 100.0500, L500.4050, L501.1400 #### [facility] [address] [place], [address] Comprehensive Metabolic Prof ilon 05-24-2025 Albumin [Mass/Vol] 3.7 g/dL Normal 3.4-4.8 [facility] Comment on above: Order Comment: 111.2 Performed By: #### L 100.0500, L500.4050, L501.1400 #### [facility] [address] [place], [address] Albumin/Globulin [Mass ratio] 1.6 {ratio} Normal 0.9-2.4 [facility] Comment on above: Order Comment: 111.2 Performed By: #### L 100.0500, L500.4050, L501.1400 #### [facility] [address] [place], [address] ALK PHOS 80 U/L Normal 40-129 [facility] Comment on above: Order Comment: 111.2 Performed By: #### L 100.0500, L500.4050, L501.1400 #### [facility] [address] [place], [address] ALT [Catalytic activity/Vol] 10 U/L Normal <=46 [facility] Comment on above: Order Comment: 111.2 Performed By: #### L 100.0500, L500.4050, L501.1400 #### [facility] [address] [place], [address] AST [Catalytic activity/Vol] 12 U/L Normal <=37 [facility] Comment on above: Order Comment: 111.2 Performed By: #### L 100.0500, L500.4050, L501.1400 #### [facility] [address] [place], [address] Bilirubin [Mass/Vol] 0.15 mg/dL Normal 0.00-1.30 [facility] Comment on above: Order Comment: 111.2 Performed By: #### L 100.0500, L500.4050, L501.1400 #### [facility] [address] [place], [address] BUN/CRE 11.9 RATIO Normal 10-20 [facility] Comment on above: Order Comment: 111.2 Performed By: #### L 100.0500, L500.4050, L501.1400 #### [facility] [address] [place], [address] Calcium [Mass/Vol] 9.2 mg/dL Normal 7.6-11.0 [facility] Comment on above: Order Comment: 111.2 Performed By: #### L 100.0500, L500.4050, L501.1400 #### [facility] [address] [place], [address] Chloride [Moles/Vol] 107 mmol/L Normal 98-108 [facility] Comment on above: Order Comment: 111.2 Performed By: #### L 100.0500, L500.4050, L501.1400 #### [facility] [address] [place], [address] CO2 [Moles/Vol] 21.9 mmol/L Normal 21.0-32.0 [facility] Comment on above: Order Comment: 111.2 Performed By: #### L 100.0500, L500.4050, L501.1400 #### [facility] [address] [place], [address] Creatinine [Mass/Vol] 2.10 mg/dL High 0.70-1.20 [facility] Comment on above: Order Comment: 111.2 Performed By: #### L 100.0500, L500.4050, L501.1400 #### [facility] [address] [place], [address] GAP 10 Normal 5-15 [facility] Comment on above: Order Comment: 111.2 Performed By: #### L 100.0500, L500.4050, L501.1400 #### [facility] [address] [place], [address] GFR/1.73 sq M.predicted among non-blacks MDRD (S/P/Bld) [Vol rate/Area] 35 mL/min/{1.73_m2} Low >60 [facility] Comment on above: Order Comment: 111.2 Result Comment: mL/m in/1.73m2 CKD-EPI Creatinine Equation (2020) Performed By: #### L 100.0500, L500.4050, L501.1400 #### [facility] [address] [place], [address] Globulin (S) [Mass/Vol] 2.3 g/dL Normal 2.2-4.2 [facility] Comment on above: Order Comment: 111.2 Performed By: #### L 100.0500, L500.4050, L501.1400 #### [facility] [address] [place], [address] Glucose [Mass/Vol] 116 mg/dL High 70-99 [facility] Comment on above: Order Comment: 111.2 Performed By: #### L 100.0500, L500.4050, L501.1400 #### [facility] [address] [place], [address] Potassium [Moles/Vol] 4.4 mmol/L Normal 3.3-5.1 [facility] Comment on above: Order Comment: 111.2 Performed By: #### L 100.0500, L500.4050, L501.1400 #### [facility] [address] [place], [address] Sodium [Moles/Vol] 139 mmol/L Normal 133-145 [facility] Comment on above: Order Comment: 111.2 Performed By: #### L 100.0500, L500.4050, L501.1400 #### [facility] [address] [place], [address] T PROT 6.0 g/dL Normal 5.9-8.4 [facility] Comment on above: Order Comment: 111.2 Performed By: #### L 100.0500, L500.4050, L501.1400 #### [facility] [address] [place], [address] Urea nitrogen [Mass/Vol] 25 mg/dL High 4-19 [facility] Comment on above: Order Comment: 111.2 Performed By: #### L 100.0500, L500.4050, L501.1400 #### [facility] [address] [place], [address] Lithiumon 05-02-2025 LI 0.53 mmol/L Low 0.60-1.20 [facility] Comment on above: Order Comment: 111.2 [id number] Performed By: #### L 501.9060 #### [facility] [address] [place], [address] Serum or plasma uric acid me asurement (mass/volume)Ordered By: Alfredo Phipps on 04-26-2025 Urate [Mass/Vol] 6.3 mg/dL 3.5-7.2 [facility] Comment on above: The drugs N-Acetylcy steine and Metamizole may falsely depress this assay. Uric Acidon 04-26-2025 URIC 6.3 mg/dL Normal 3.5-7.2 [facility] Comment on above: Order Comment: 111-2 Result Comment: The drugs N-Acetylcysteine and Metamizole may falsely depress this assay. Performed By: #### L 501.1400 #### [facility] [address] [place], [place], [address] Absolute lymphocyte countOrd ered By: Adam Ferraro on 04-24-2025 Lymphocytes Auto (Unsp spec) [#/Vol] 2.17 10*3/uL 0.83-4.51 [facility] Absolute neutrophil countOrd ered By: Adam Ferraro on 04-24-2025 Neutrophils (Bld) [#/Vol] 6.4 10*3/uL 2.0-7.7 [facility] Anion gap in Serum or Plasma Ordered By: Adam Ferraro on 04-24-2025 Anion gap [Moles/Vol] 12 mmol/L 5-15 [facility] Automated lymphocyte count a s percentage of total leukocytesOrdered By: Adam Ferraro on 04-24-2025 Lymphocytes/100 WBC Auto (Unsp spec) 21.0 % 19- [facility] BUN/creatinine ratioOrdered By: Adam Ferraro on 04-24-2025 Urea nitrogen/Creatinine [Mass ratio] 10.5 mg/mg 10-20 [facility] Basophil percentageOrdered B y: Adam Ferraro on 04-24-2025 Basophils/100 WBC (Bld) 1.1 % High 0-1 [facility] Bilirubin, totalOrdered By: Adam Ferraro on 04-24-2025 Bilirubin [Mass/Vol] 0.16 mg/dL 0.00-1.30 [facility] CBC W/Diff, Automatedon 04-14 Absolute Lymph 2.17 X10 3/uL Normal 0.83-4.51 [facility] Comment on above: Order Comment: 111.2 Performed By: #### L 501.2300, L500.4050, L501.9060, L100.0100 #### [facility] [address] [place], [place], [id number] Absolute Neut 6.4 X10 3/uL Normal 2.0-7.7 [facility] Comment on above: Order Comment: 111.2 Performed By: #### L 501.2300, L500.4050, L501.9060, L100.0100 #### [facility] [address] [place], [address] Basophils/100 WBC (Bld) 1.1 % High 0-1 [facility] Comment on above: Order Comment: 111.2 Performed By: #### L 501.2300, L500.4050, L501.9060, L100.0100 #### [facility] [address] [place], [address] Eosinophils/100 WBC (Bld) 5.1 % High 0-5 [facility] Comment on above: Order Comment: 111.2 Performed By: #### L 501.2300, L500.4050, L501.9060, L100.0100 #### [facility] [address] [place], [address] Erythrocyte distribution width (RBC) [Ratio] 13.1 % Normal 11.6-14.6 [facility] Comment on above: Order Comment: 111.2 Performed By: #### L 501.2300, L500.4050, L501.9060, L100.0100 #### [facility] [address] [place], [address] Hematocrit (Bld) [Volume fraction] 38.2 % Low 40-54 [facility] Comment on above: Order Comment: 111.2 Performed By: #### L 501.2300, L500.4050, L501.9060, L100.0100 #### [facility] [address] [place], [address] Hemoglobin (Bld) [Mass/Vol] 12.7 g/dL Low 13.0-16.5 [facility] Comment on above: Order Comment: 111.2 Performed By: #### L 501.2300, L500.4050, L501.9060, L100.0100 #### [facility] [address] [place], [address] IG% 0.700 Normal 0.0-0.9 [facility] Comment on above: Order Comment: 111.2 Result Comment: IG% - Immature Granulocytes (promyelocytes, myelocytes and metamyelocytes) > 1% indicates that a LEFT SHIFT is Present. Performed By: #### L 501.2300, L500.4050, L501.9060, L100.0100 #### [facility] [address] [place], [address] Lymphocytes/100 WBC (Bld) 21.0 % Normal 19-41 [facility] Comment on above: Order Comment: 111.2 Performed By: #### L 501.2300, L500.4050, L501.9060, L100.0100 #### [facility] [address] [place], [address] MCH (RBC) [Entitic mass] 30.4 pg Normal 27.0-32.0 [facility] Comment on above: Order Comment: 111.2 Performed By: #### L 501.2300, L500.4050, L501.9060, L100.0100 #### [facility] [address] [place], [address] MCHC (RBC) [Mass/Vol] 33.2 g/dL Normal 32-36 [facility] Comment on above: Order Comment: 111.2 Performed By: #### L 501.2300, L500.4050, L501.9060, L100.0100 #### [facility] [address] [place], [address] MCV (RBC) [Entitic vol] 91.4 fL Normal 80-94 [facility] Comment on above: Order Comment: 111.2 Performed By: #### L 501.2300, L500.4050, L501.9060, L100.0100 #### [facility] [address] [place], [address] Monocytes/100 WBC (Bld) 9.9 % Normal 0-10 [facility] Comment on above: Order Comment: 111.2 Performed By: #### L 501.2300, L500.4050, L501.9060, L100.0100 #### [facility] [address] [place], [address] Neutrophils/100 WBC (Bld) 62.2 % Normal 47-70 [facility] Comment on above: Order Comment: 111.2 Performed By: #### L 501.2300, L500.4050, L501.9060, L100.0100 #### [facility] [address] [place], [address] Nucleated RBC (Bld) [#/Vol] 0 10*3/uL Normal 0-5 [facility] Comment on above: Order Comment: 111.2 Performed By: #### L 501.2300, L500.4050, L501.9060, L100.0100 #### [facility] [address] [place], [address] Platelet mean volume (Bld) [Entitic vol] 9.4 fL Normal 6.2-12.0 [facility] Comment on above: Order Comment: 111.2 Performed By: #### L 501.2300, L500.4050, L501.9060, L100.0100 #### [facility] [address] [place], [address] Platelets (Bld) [#/Vol] 245 10*3/uL Normal 150-450 [facility] Comment on above: Order Comment: 111.2 Performed By: #### L 501.2300, L500.4050, L501.9060, L100.0100 #### [facility] [address] [place], [address] RBC (Bld) [#/Vol] 4.18 10*6/uL Low 4.6-6.2 [facility] Comment on above: Order Comment: 111.2 Performed By: #### L 501.2300, L500.4050, L501.9060, L100.0100 #### [facility] [address] [place], [address] RDW SD 43.9 fl Normal 35.1-43.9 [facility] Comment on above: Order Comment: 111.2 Performed By: #### L 501.2300, L500.4050, L501.9060, L100.0100 #### [facility] [address] [place], [address] WBC (Bld) [#/Vol] 10.3 10*3/uL Normal 4.4-11.0 [facility] Comment on above: Order Comment: 111.2 Performed By: #### L 501.2300, L500.4050, L501.9060, L100.0100 #### [facility] [address] [place], [address] Carbon dioxide, total [Moles /volume] in Central venous bloodOrdered By: Adam Ferraro on 04-24-2025 CO2 [Moles/Vol] 21.9 mmol/L 21.0-32.0 [facility] Chloride assayOrdered By: Sabino Ferraro on 04-24-2025 Chloride [Moles/Vol] 107 mmol/L 98-108 [facility] Comprehensive Metabolic Prof ilon 04-24-2025 Albumin [Mass/Vol] 3.5 g/dL Normal 3.4-4.8 [facility] Comment on above: Order Comment: 111.2 Performed By: #### L 501.2300, L500.4050, L501.9060, L100.0100 #### [facility] [address] [place], [address] Albumin/Globulin [Mass ratio] 1.5 {ratio} Normal 0.9-2.4 [facility] Comment on above: Order Comment: 111.2 Performed By: #### L 501.2300, L500.4050, L501.9060, L100.0100 #### [facility] [address] [place], [address] ALK PHOS 76 U/L Normal 40-129 [facility] Comment on above: Order Comment: 111.2 Performed By: #### L 501.2300, L500.4050, L501.9060, L100.0100 #### [facility] [address] [place], [address] ALT [Catalytic activity/Vol] 11 U/L Normal <=46 [facility] Comment on above: Order Comment: 111.2 Performed By: #### L 501.2300, L500.4050, L501.9060, L100.0100 #### [facility] [address] [place], [address] AST [Catalytic activity/Vol] 16 U/L Normal <=37 [facility] Comment on above: Order Comment: 111.2 Performed By: #### L 501.2300, L500.4050, L501.9060, L100.0100 #### [facility] [address] [place], [address] Bilirubin [Mass/Vol] 0.16 mg/dL Normal 0.00-1.30 [facility] Comment on above: Order Comment: 111.2 Performed By: #### L 501.2300, L500.4050, L501.9060, L100.0100 #### [facility] [address] [place], [address] BUN/CRE 10.5 RATIO Normal 10-20 [facility] Comment on above: Order Comment: 111.2 Performed By: #### L 501.2300, L500.4050, L501.9060, L100.0100 #### [facility] [address] [place], [address] Calcium [Mass/Vol] 9.3 mg/dL Normal 7.6-11.0 [facility] Comment on above: Order Comment: 111.2 Performed By: #### L 501.2300, L500.4050, L501.9060, L100.0100 #### [facility] [address] [place], [address] Chloride [Moles/Vol] 107 mmol/L Normal 98-108 [facility] Comment on above: Order Comment: 111.2 Performed By: #### L 501.2300, L500.4050, L501.9060, L100.0100 #### [facility] [address] [place], [address] CO2 [Moles/Vol] 21.9 mmol/L Normal 21.0-32.0 [facility] Comment on above: Order Comment: 111.2 Performed By: #### L 501.2300, L500.4050, L501.9060, L100.0100 #### [facility] [address] [place], [address] Creatinine [Mass/Vol] 2.41 mg/dL High 0.70-1.20 [facility] Comment on above: Order Comment: 111.2 Performed By: #### L 501.2300, L500.4050, L501.9060, L100.0100 #### [facility] [address] [place], [address] GAP 12 Normal 5-15 [facility] Comment on above: Order Comment: 111.2 Performed By: #### L 501.2300, L500.4050, L501.9060, L100.0100 #### [facility] [address] [place], [address] GFR/1.73 sq M.predicted among non-blacks MDRD (S/P/Bld) [Vol rate/Area] 30 mL/min/{1.73_m2} Low >60 [facility] Comment on above: Order Comment: 111.2 Result Comment: mL/m in/1.73m2 CKD-EPI Creatinine Equation (2020) Performed By: #### L 501.2300, L500.4050, L501.9060, L100.0100 #### [facility] [address] [place], [address] Globulin (S) [Mass/Vol] 2.3 g/dL Normal 2.2-4.2 [facility] Comment on above: Order Comment: 111.2 Performed By: #### L 501.2300, L500.4050, L501.9060, L100.0100 #### [facility] [address] [place], [address] Glucose [Mass/Vol] 123 mg/dL High 70-99 [facility] Comment on above: Order Comment: 111.2 Performed By: #### L 501.2300, L500.4050, L501.9060, L100.0100 #### [facility] [address] [place], [address] Potassium [Moles/Vol] 4.6 mmol/L Normal 3.3-5.1 [facility] Comment on above: Order Comment: 111.2 Performed By: #### L 501.2300, L500.4050, L501.9060, L100.0100 #### [facility] [address] [place], [address] Sodium [Moles/Vol] 140 mmol/L Normal 133-145 [facility] Comment on above: Order Comment: 111.2 Performed By: #### L 501.2300, L500.4050, L501.9060, L100.0100 #### [facility] [address] [place], [address] T PROT 5.9 g/dL Normal 5.9-8.4 [facility] Comment on above: Order Comment: 111.2 Performed By: #### L 501.2300, L500.4050, L501.9060, L100.0100 #### [facility] [address] [place], [address] Urea nitrogen [Mass/Vol] 25 mg/dL High 4-19 [facility] Comment on above: Order Comment: 111.2 Performed By: #### L 501.2300, L500.4050, L501.9060, L100.0100 #### [facility] [address] [place], [address] Eosinophil percentageOrdered By: Adam Ferraro on 04-24-2025 Eosinophils/100 WBC (Bld) 5.1 % High 0-5 [facility] Erythrocyte distribution wid th ratioOrdered By: Adam Ferraro on 04-24-2025 Erythrocyte distribution width (RBC) [Ratio] 13.1 % 11.6-14.6 [facility] Erythrocyte distribution wid th standard deviationOrdered By: Adam Ferraro on 04-24-2025 Erythrocyte distribution width (RBC) [Ratio] 43.9 fl 35.1-43.9 [facility] Glomerular filtration rate ( GFR) estimation/1.73 sq m using serum, plasma, or whole bOrdered By: Adam Ferraro on 04-24-2025 GFR/1.73 sq M.predicted among non-blacks MDRD (S/P/Bld) [Vol rate/Area] 30 mL/min/{1.73_m2} Low >60 [facility] Comment on above: mL/min/1.73m2 CKD-EP I Creatinine Equation (2020) Hematocrit Auto (Bld) [Volum e fraction]Ordered By: Adam Ferraro on 04-24-2025 Hematocrit (Bld) [Volume fraction] 38.2 % Low 40-54 [facility] Hemoglobin measurementOrdere d By: Adam Ferraro on 04-24-2025 Hemoglobin (Bld) [Mass/Vol] 12.7 g/dL Low 13.0-16.5 [facility] Immature granulocytes/100 WB C Auto (Bld)Ordered By: Adam Ferraro on 04-24-2025 Immature granulocytes/100 WBC (Bld) 0.700 % 0.0-0.9 [facility] Comment on above: IG% - Immature Granu locytes (promyelocytes, myelocytes and metamyelocytes) > 1% indicates that a LEFT SHIFT is Present. Laboratory - Chemistry and C hemistry - challengeOrdered By: Adam Ferraro on 04-24-2025 AST [Catalytic activity/Vol] 16 U/L <38 [facility] Lithiumon 04-24-2025 LI 0.60 mmol/L Normal 0.60-1.20 [facility] Comment on above: Order Comment: 111.2 [id number] Performed By: #### L 501.2300, L500.4050, L501.9060, L100.0100 #### [facility] [address] [place], [address] MCV (mean corpuscular volume ) determinationOrdered By: Adam Ferraro on 04-24-2025 MCV (RBC) [Entitic vol] 91.4 fL 80-94 [facility] Mean corpuscular hemoglobin (MCH) determinationOrdered By: Adam Ferraro on 04-24-2025 MCH (RBC) [Entitic mass] 30.4 pg 27.0-32.0 [facility] Mean corpuscular hemoglobin concentration (MCHC) determinationOrdered By: Adam Ferraro on 04-24-2025 MCHC (RBC) [Mass/Vol] 33.2 g/dL 32-36 [facility] Mean platelet volume determi nationOrdered By: Adam Ferraro on 04-24-2025 Platelet mean volume (Bld) [Entitic vol] 9.4 fL 6.2-12.0 [facility] Monocyte percentageOrdered B y: Adam Ferraro on 04-24-2025 Monocytes/100 WBC (Bld) 9.9 % 0-10 [facility] Neutrophil percentageOrdered By: Adam Ferraro on 04-24-2025 Neutrophils/100 WBC (Bld) 62.2 % 47-70 [facility] Nucleated red blood cell per centageOrdered By: Adam Ferraro on 04-24-2025 Nucleated RBC/100 WBC (Bld) [Ratio] 0 % 0-5 [facility] Phosphoruson 04-24-2025 Phosphate [Mass/Vol] 4.8 mg/dL High 2.7-4.5 [facility] Comment on above: Order Comment: 111.2 Performed By: #### L 501.2300, L500.4050, L501.9060, L100.0100 #### [facility] [address] [place], [address] Platelet countOrdered By: Sabino Ferraro on 04-24-2025 Platelets (Bld) [#/Vol] 245 10*3/uL 150-450 [facility] Potassium measurement (mass/ volume)Ordered By: Adam Ferraro on 04-24-2025 Potassium (Unsp spec) [Mass/Vol] 4.6 mmol/L 3.3-5.1 [facility] RBC Auto (Bld) [#/Vol]Ordere d By: Adam Ferraro on 04-24-2025 RBC (Bld) [#/Vol] 4.18 10*6/uL Low 4.6-6.2 [facility] Serum creatinine measurement (mass/volume)Ordered By: Adam Ferraro on 04-24-2025 Creatinine [Mass/Vol] 2.41 mg/dL High 0.70-1.20 [facility] Serum globulin measurementOr dered By: Adam Ferarro on 04-24-2025 Globulin (S) [Mass/Vol] 2.3 g/dL 2.2-4.2 [facility] Serum glucose measurement (m ass/volume)Ordered By: Adam Ferraro on 04-24-2025 Glucose [Mass/Vol] 123 mg/dL High 70-99 [facility] Serum or plasma alanine sesay otransferase (ALT) measurementOrdered By: Adam Ferraro on 04-24-2025 ALT [Catalytic activity/Vol] 11 U/L <47 [facility] Serum or plasma albumin you urement (mass/volume)Ordered By: Adam Ferraro on 04-24-2025 Albumin [Mass/Vol] 3.5 g/dL 3.4-4.8 [facility] Serum or plasma albumin/glob ulin mass ratioOrdered By: Adam Ferraro on 04-24-2025 Albumin/Globulin [Mass ratio] 1.5 {ratio} 0.9-2.4 [facility] Serum or plasma alkaline hal sphatase measurementOrdered By: Adam Ferraro on 04-24-2025 ALP [Catalytic activity/Vol] 76 U/L 40-129 [facility] Serum or plasma calcium you urement (mass/volume)Ordered By: Adam Ferraro on 04-24-2025 Calcium [Mass/Vol] 9.3 mg/dL 7.6-11.0 [facility] Serum or plasma urea nitroge n measurement (mass/volume)Ordered By: Adam Ferraro on 04-24-2025 Urea nitrogen [Mass/Vol] 25 mg/dL High 4-19 [facility] Sodium levelOrdered By: Spike Ferraro on 04-24-2025 Sodium [Moles/Vol] 140 mmol/L 133-145 [facility] Total proteinOrdered By: Benoit Ferraro on 04-24-2025 Protein [Mass/Vol] 5.9 g/dL 5.9-8.4 [facility] White blood cell (WBC) count Ordered By: Adam Ferraro on 04-24-2025 WBC (Bld) [#/Vol] 10.3 10*3/uL 4.4-11.0 [facility] Lithiumon 04-01-2025 LI 0.64 mmol/L Normal 0.60-1.20 [facility] Comment on above: Order Comment: 111.2 [id number] Performed By: #### L [id number] #### [facility] [address] [place], [place] [address] [place], [address] Serum or plasma uric acid me asurement (mass/volume)Ordered By: Alfredo Phipps on 03-27-2025 Urate [Mass/Vol] 6.5 mg/dL 3.5-7.2 [facility] Comment on above: The drugs N-Acetylcy steine and Metamizole may falsely depress this assay. Uric Acidon 03-27-2025 URIC 6.5 mg/dL Normal 3.5-7.2 [facility] Comment on above: Order Comment: 111-2 Result Comment: The drugs N-Acetylcysteine and Metamizole may falsely depress this assay. Performed By: #### L 501.1400 #### [facility] [address] [place], [place], [id number] Microalb:Creat Ratio,Random URon 03-05-2025 Creatinine [Mass/Vol] 72.80 mg/dL Normal 39.00- 259. 00 [facility] Comment on above: Performed By: #### L 501.1400 #### [facility] [address] [place], [address] MALB:CREAT UNABLE TO CALCULATE Normal [facility] Comment on above: Performed By: #### L [id number] #### [facility] [address] [place], [place], [id number] MICROALBUMIN,UR < 12.0 Normal NO RANGE EST. [facility] Comment on above: Performed By: #### L [id number] #### [facility] [address] [place], [place], [id number] Microalbumin/creat ratio urO rdered By: Adam Ferraro on 03-04-2025 Urine microalbumin/creatinine ratio measurement UNABLE TO CALCULATE mg/g CRE [facility] Random urine creatinine you urement (mass/volume)Ordered By: Adam Ferraro on 03-04-2025 Creatinine Unsp time (U) [Mass/Vol] 72.80 mg/dL 39.00-259. 00 [facility] Urine albumin measurement [facility] detection limit of 20 mg/L or less (mass/volume)Ordered By: Adam Ferraro on 03-04-2025 Albumin DL <= 20 mg/L (U) [Mass/Vol] < 12.0 mg/L NO RANGE EST. [facility] Absolute lymphocyte countOrd ered By: Alfredo Phipps on 02-27-2025 Lymphocytes Auto (Unsp spec) [#/Vol] 1.42 10*3/uL 0.83-4.51 [facility] Absolute neutrophil countOrd ered By: Alfredo Phipps on 02-27-2025 Neutrophils (Bld) [#/Vol] 17.7 10*3/uL High 2.0-7.7 [facility] Anion gap in Serum or Plasma Ordered By: Alfredo Phipps on 02-27-2025 Anion gap [Moles/Vol] 12 mmol/L 5-15 [facility] Automated lymphocyte count a s percentage of total leukocytesOrdered By: Alfredo Phipps on 02-27-2025 Lymphocytes/100 WBC Auto (Unsp spec) 6.9 % Low 19-41 [facility] BUN/creatinine ratioOrdered By: Alfredo Phipps on 02-27-2025 Urea nitrogen/Creatinine [Mass ratio] 12.7 mg/mg 10- [facility] Basophil percentageOrdered B y: Alfredo Phipps on 02-27-2025 Basophils/100 WBC (Bld) 0.2 % 0-1 [facility] Bilirubin directOrdered By: Alfredo Phipps on 02-27-2025 Bilirubin.direct [Mass/Vol] 0.10 mg/dL 0.00-0.30 [facility] Bilirubin, Directon 02-28-20 25 Bilirubin.direct [Mass/Vol] 0.10 mg/dL Normal 0.00-0.30 [facility] Comment on above: Order Comment: 111-2 Performed By: #### L 501.1400 #### [facility] [address] [place], [place], [id number] Bilirubin, totalOrdered By: Alfredo Phipps on 02-27-2025 Bilirubin [Mass/Vol] 0.19 mg/dL 0.00-1.30 [facility] CBC W/Diff, Automatedon 02-12 Absolute Lymph 1.42 X10 3/uL Normal 0.83-4.51 [facility] Comment on above: Order Comment: 111-2 Performed By: #### L 501.1400 #### [facility] [address] [place], [place], [id number] Absolute Neut 17.7 X10 3/uL High 2.0-7.7 [facility] Comment on above: Order Comment: 111-2 Performed By: #### L [id number] #### [facility] [address] [place], [address] Basophils/100 WBC (Bld) 0.2 % Normal 0-1 [facility] Comment on above: Order Comment: 111-2 Performed By: #### L [id number] #### [facility] [address] [place], [address] Eosinophils/100 WBC (Bld) 0.0 % Normal 0-5 [facility] Comment on above: Order Comment: 111-2 Performed By: #### L [id number] #### [facility] [address] [place], [address] Erythrocyte distribution width (RBC) [Ratio] 13.3 % Normal 11.6-14.6 [facility] Comment on above: Order Comment: 111-2 Performed By: #### L [id number] #### [facility] [address] [place], [address] Hematocrit (Bld) [Volume fraction] 39.0 % Low 40-54 [facility] Comment on above: Order Comment: 111-2 Performed By: #### L [id number] #### [facility] [address] [place], [address] Hemoglobin (Bld) [Mass/Vol] 13.1 g/dL Normal 13.0-16.5 [facility] Comment on above: Order Comment: 111-2 Performed By: #### L [id number] #### [facility] [address] [place], [address] IG% 0.900 Normal 0.0-0.9 [facility] Comment on above: Order Comment: 111-2 Result Comment: IG% - Immature Granulocytes (promyelocytes, myelocytes and metamyelocytes) > 1% indicates that a LEFT SHIFT is Present. Performed By: #### L [id number] #### [facility] [address] [place], [address] Lymphocytes/100 WBC (Bld) 6.9 % Low 19-41 [facility] Comment on above: Order Comment: 111-2 Performed By: #### L [id number] #### [facility] [address] [place], [address] MCH (RBC) [Entitic mass] 30.1 pg Normal 27.0-32.0 [facility] Comment on above: Order Comment: 111-2 Performed By: #### L [id number] #### [facility] [address] [place], [address] MCHC (RBC) [Mass/Vol] 33.6 g/dL Normal 32-36 [facility] Comment on above: Order Comment: 111-2 Performed By: #### L [id number] #### [facility] [address] [place], [address] MCV (RBC) [Entitic vol] 89.7 fL Normal 80-94 [facility] Comment on above: Order Comment: 111-2 Performed By: #### L [id number] #### [facility] [address] [place], [address] Monocytes/100 WBC (Bld) 6.4 % Normal 0-10 [facility] Comment on above: Order Comment: 111-2 Performed By: #### L [id number] #### [facility] [address] [place], [address] Neutrophils/100 WBC (Bld) 85.6 % High 47-70 [facility] Comment on above: Order Comment: 111-2 Performed By: #### L [id number] #### [facility] [address] [place], [address] Nucleated RBC (Bld) [#/Vol] 0 10*3/uL Normal 0-5 [facility] Comment on above: Order Comment: 111-2 Performed By: #### L [id number] #### [facility] [address] [place], [address] Platelet mean volume (Bld) [Entitic vol] 9.3 fL Normal 6.2-12.0 [facility] Comment on above: Order Comment: 111-2 Performed By: #### L 501.1400 #### [facility] [address] [place], [address] Platelets (Bld) [#/Vol] 274 10*3/uL Normal 150-450 [facility] Comment on above: Order Comment: 111-2 Performed By: #### L [id number] #### [facility] [address] [place], [address] RBC (Bld) [#/Vol] 4.35 10*6/uL Low 4.6-6.2 [facility] Comment on above: Order Comment: 111-2 Performed By: #### L [id number] #### [facility] [address] [place], [address] RDW SD 43.8 fl Normal 35.1-43.9 [facility] Comment on above: Order Comment: 111-2 Performed By: #### L [id number] #### [facility] [address] [place], [address] WBC (Bld) [#/Vol] 20.6 10*3/uL High 4.4-11.0 [facility] Comment on above: Order Comment: 111-2 Performed By: #### L [id number] #### [facility] [address] [place], [address] Carbon dioxide, total [Moles /volume] in Central venous bloodOrdered By: Alfredo Phipps on 02-27-2025 CO2 [Moles/Vol] 20.5 mmol/L Low 21.0-32.0 [facility] Chloride assayOrdered By: Chan Fiore on 02-27-2025 Chloride [Moles/Vol] 105 mmol/L 98-108 [facility] Comprehensive Metabolic Prof ilon 02-27-2025 Albumin [Mass/Vol] 3.9 g/dL Normal 3.4-4.8 [facility] Comment on above: Order Comment: 111-2 Performed By: #### L 501.1400 #### [facility] [address] [place], [address] Albumin/Globulin [Mass ratio] 1.6 {ratio} Normal 0.9-2.4 [facility] Comment on above: Order Comment: 111-2 Performed By: #### L [id number] #### [facility] [address] [place], [address] ALK PHOS 66 U/L Normal 40-129 [facility] Comment on above: Order Comment: 111-2 Performed By: #### L [id number] #### [facility] [address] [place], [address] ALT [Catalytic activity/Vol] 13 U/L Normal <=46 [facility] Comment on above: Order Comment: 111-2 Performed By: #### L [id number] #### [facility] [address] [place], [address] AST [Catalytic activity/Vol] 11 U/L Normal <=37 [facility] Comment on above: Order Comment: 111-2 Performed By: #### L [id number] #### [facility] [address] [place], [address] Bilirubin [Mass/Vol] 0.19 mg/dL Normal 0.00-1.30 [facility] Comment on above: Order Comment: 111-2 Performed By: #### L [id number] #### [facility] [address] [place], [address] BUN/CRE 12.7 RATIO Normal 10-20 [facility] Comment on above: Order Comment: 111-2 Performed By: #### L [id number] #### [facility] [address] [place], [address] Calcium [Mass/Vol] 9.8 mg/dL Normal 7.6-11.0 [facility] Comment on above: Order Comment: 111-2 Performed By: #### L [id number] #### [facility] [address] [place], [address] Chloride [Moles/Vol] 105 mmol/L Normal 98-108 [facility] Comment on above: Order Comment: 111-2 Performed By: #### L [id number] #### [facility] [address] [place], [address] CO2 [Moles/Vol] 20.5 mmol/L Low 21.0-32.0 [facility] Comment on above: Order Comment: 111-2 Performed By: #### L [id number] #### [facility] [address] [place], [address] Creatinine [Mass/Vol] 2.32 mg/dL High 0.70-1.20 [facility] Comment on above: Order Comment: 111-2 Performed By: #### L [id number] #### [facility] [address] [place], [address] GAP 12 Normal 5-15 [facility] Comment on above: Order Comment: 111-2 Performed By: #### L [id number] #### [facility] [address] [place], [address] GFR/1.73 sq M.predicted among non-blacks MDRD (S/P/Bld) [Vol rate/Area] 31 mL/min/{1.73_m2} Low >60 [facility] Comment on above: Order Comment: 111-2 Result Comment: mL/m in/1.73m2 CKD-EPI Creatinine Equation (2020) Performed By: #### L 501.1400 #### [facility] [address] [place], [address] Globulin (S) [Mass/Vol] 2.4 g/dL Normal 2.2-4.2 [facility] Comment on above: Order Comment: 111-2 Performed By: #### L [id number] #### [facility] [address] [place], [address] Glucose [Mass/Vol] 134 mg/dL High 70-99 [facility] Comment on above: Order Comment: 111-2 Performed By: #### L [id number] #### [facility] [address] [place], [address] Potassium [Moles/Vol] 4.4 mmol/L Normal 3.3-5.1 [facility] Comment on above: Order Comment: 111-2 Performed By: #### L [id number] #### [facility] [address] [place], [address] Sodium [Moles/Vol] 138 mmol/L Normal 133-145 [facility] Comment on above: Order Comment: 111-2 Performed By: #### L [id number] #### [facility] [address] [place], [address] T PROT 6.2 g/dL Normal 5.9-8.4 [facility] Comment on above: Order Comment: 111-2 Performed By: #### L [id number] #### [facility] [address] [place], [address] Urea nitrogen [Mass/Vol] 29 mg/dL High 4-19 [facility] Comment on above: Order Comment: 111-2 Performed By: #### L [id number] #### [facility] [address] [place], [address] Eosinophil percentageOrdered By: Alfredo Phipps on 02-27-2025 Eosinophils/100 WBC (Bld) 0.0 % 0-5 [facility] Erythrocyte distribution wid th (RBC) [Ratio]Ordered By: Alfredo Phipps on 02-27-2025 Erythrocyte distribution width (RBC) [Entitic vol] 43.8 fL 35.1-43.9 [facility] Erythrocyte distribution wid th ratioOrdered By: Alfredo Phipps on 02-27-2025 Erythrocyte distribution width (RBC) [Ratio] 13.3 % 11.6-14.6 [facility] Erythrocyte distribution wid th standard deviationOrdered By: Alfredo Phipps on 02-27-2025 Erythrocyte distribution width (RBC) [Ratio] 43.8 fl 35.1-43.9 [facility] GFR/1.73 sq M.predicted miles g non-blacks MDRD (S/P/Bld) [Vol rate/Area]Ordered By: Alfredo Phipps on 02-27-2025 Estimated GFR (MDRD) Non-Af Amer 31 Low >60 [facility] Comment on above: mL/min/1.73m2 CKD-EP I Creatinine Equation (2020) Glomerular filtration rate ( GFR) estimation/1.73 sq m using serum, plasma, or whole bOrdered By: Alfredo Phipps on 02-27-2025 GFR/1.73 sq M.predicted among non-blacks MDRD (S/P/Bld) [Vol rate/Area] 31 mL/min/{1.73_m2} Low >60 [facility] Comment on above: mL/min/1.73m2 CKD-EP I Creatinine Equation (2020) Hematocrit Auto (Bld) [Volum e fraction]Ordered By: Alfredo Phipps on 02-27-2025 Hematocrit (Bld) [Volume fraction] 39.0 % Low 40-54 [facility] Hemoglobin measurementOrdere d By: Alfredo Phipps on 02-27-2025 Hemoglobin (Bld) [Mass/Vol] 13.1 g/dL 13.0-16.5 [facility] Immature granulocytes/100 WB C Auto (Bld)Ordered By: Alfredo Phipps on 02-27-2025 Immature granulocytes/100 WBC (Bld) 0.900 % 0.0-0.9 [facility] Comment on above: IG% - Immature Granu locytes (promyelocytes, myelocytes and metamyelocytes) > 1% indicates that a LEFT SHIFT is Present. Laboratory - Chemistry and C hemistry - challengeOrdered By: Alfredo Phipps on 02-27-2025 AST [Catalytic activity/Vol] 11 U/L <38 [facility] Lithiumon 02-27-2025 LI 0.60 mmol/L Normal 0.60-1.20 [facility] Comment on above: Order Comment: 111-2 Performed By: #### L [id number] #### [facility] [address] [place], [address] [place] levelOrdered By: Jennifer Phipps on 02-27-2025 [place] Level 0.60 mmol/L 0.60-1.20 [facility] Lymphocytes Auto (Unsp spec) [#/Vol]Ordered By: Alfredo Phipps on 02-27-2025 Lymphocytes (Bld) [#/Vol] 1.42 10*3/uL 0.83-4.51 [facility] Lymphocytes/100 WBC Auto (Un sp spec)Ordered By: Alfredo Phipps on 02-27-2025 Lymphocytes/100 WBC (Bld) 6.9 % Low 19-41 [facility] MCV (mean corpuscular volume ) determinationOrdered By: Alfredo Phipps on 02-27-2025 MCV (RBC) [Entitic vol] 89.7 fL 80-94 [facility] Mean corpuscular hemoglobin (MCH) determinationOrdered By: Alfredo Phipps on 02-27-2025 MCH (RBC) [Entitic mass] 30.1 pg 27.0-32.0 [facility] Mean corpuscular hemoglobin concentration (MCHC) determinationOrdered By: Alfredo Phipps on 02-27-2025 MCHC (RBC) [Mass/Vol] 33.6 g/dL 32-36 [facility] Mean platelet volume determi nationOrdered By: Alfredo Phipps on 02-27-2025 Platelet mean volume (Bld) [Entitic vol] 9.3 fL 6.2-12.0 [facility] Monocyte percentageOrdered B y: Alfredo Phipps on 02-27-2025 Monocytes/100 WBC (Bld) 6.4 % 0-10 [facility] Neutrophil percentageOrdered By: Alfredo Phipps on 02-27-2025 Neutrophils/100 WBC (Bld) 85.6 % High 47-70 [facility] Nucleated red blood cell per centageOrdered By: Alfredo Phipps on 02-27-2025 Nucleated RBC/100 WBC (Bld) [Ratio] 0 % 0-5 [facility] Platelet countOrdered By: Chan Fiore on 02-27-2025 Platelets (Bld) [#/Vol] 274 10*3/uL 150-450 [facility] Potassium (Unsp spec) [Mass/ Vol]Ordered By: Alfredo Phipps on 02-27-2025 Potassium [Moles/Vol] 4.4 mmol/L 3.3-5.1 [facility] Potassium measurement (mass/ volume)Ordered By: Alfredo Phipps on 02-27-2025 Potassium (Unsp spec) [Mass/Vol] 4.4 mmol/L 3.3-5.1 [facility] RBC Auto (Bld) [#/Vol]Ordere d By: Alfredo Phipps on 02-27-2025 RBC (Bld) [#/Vol] 4.35 10*6/uL Low 4.6-6.2 [facility] Serum creatinine measurement (mass/volume)Ordered By: Alfredo Phipps on 02-27-2025 Creatinine [Mass/Vol] 2.32 mg/dL High 0.70-1.20 [facility] Serum globulin measurementOr dered By: Alfredo Phipps on 02-27-2025 Globulin (S) [Mass/Vol] 2.4 g/dL 2.2-4.2 [facility] Serum glucose measurement (m ass/volume)Ordered By: Alfredo Phipps on 02-27-2025 Glucose [Mass/Vol] 134 mg/dL High 70-99 [facility] Serum or plasma alanine sesay otransferase (ALT) measurementOrdered By: Alfredo Phipps on 02-27-2025 ALT [Catalytic activity/Vol] 13 U/L <47 [facility] Serum or plasma albumin you urement (mass/volume)Ordered By: Alfredo Phipps on 02-27-2025 Albumin [Mass/Vol] 3.9 g/dL 3.4-4.8 [facility] Serum or plasma albumin/glob ulin mass ratioOrdered By: Alfredo Phipps on 02-27-2025 Albumin/Globulin [Mass ratio] 1.6 {ratio} 0.9-2.4 [facility] Serum or plasma alkaline hal sphatase measurementOrdered By: Alfredo Phipps on 02-27-2025 ALP [Catalytic activity/Vol] 66 U/L 40-129 [facility] Serum or plasma calcium you urement (mass/volume)Ordered By: Alfredo Phipps on 02-27-2025 Calcium [Mass/Vol] 9.8 mg/dL 7.6-11.0 [facility] Serum or plasma urea nitroge n measurement (mass/volume)Ordered By: Alfredo Phipps on 02-27-2025 Urea nitrogen [Mass/Vol] 29 mg/dL High 4-19 [facility] Sodium levelOrdered By: Raffi Phipps on 02-27-2025 Sodium [Moles/Vol] 138 mmol/L 133-145 [facility] Total proteinOrdered By: Jennifer Phipps on 02-27-2025 Protein [Mass/Vol] 6.2 g/dL 5.9-8.4 [facility] White blood cell (WBC) count Ordered By: Alfredo Phipps on 02-27-2025 WBC (Bld) [#/Vol] 20.6 10*3/uL High 4.4-11.0 [facility] Serum or plasma uric acid me asurement (mass/volume)Ordered By: Adam Ferraro on 02-25-2025 Urate [Mass/Vol] 6.3 mg/dL 3.5-7.2 [facility] Comment on above: The drugs N-Acetylcy steine and Metamizole may falsely depress this assay. Uric Acidon 02-25-2025 URIC 6.3 mg/dL Normal 3.5-7.2 [facility] Comment on above: Order Comment: 111.2 Result Comment: The drugs N-Acetylcysteine and Metamizole may falsely depress this assay. Performed By: #### L 100.0500, L500.4050, L501.1400 #### [facility] [address] [place], [place], [id number] Calculated very low density lipoprotein (VLDL) cholesterol measurementOrdered By: Alfredo Phipps on 02-11-2025 Calculated very low density lipoprotein (VLDL) cholesterol measurement 43 mg/dL High 5-40 [facility] VLDL Cholesterol 43 mg/dL High 5-40 [facility] LDL calc ser/plasOrdered By: Alfredo Phipps on 02-11-2025 Cholesterol in LDL [Mass/Vol] 67 mg/dL [facility] Comment on above: Gdfidrcrlv=905-198 m g/dL & Higher Nvek=879 mg/dL or greater LDL Cholesterol, Calculated 67 mg/dL [facility] Comment on above: Yytgcqmhev=905-601 m g/dL & Higher Nekb=266 mg/dL or greater Lipid Profileon 02-11-2025 CHOL:HDL 4.53 Normal [facility] Comment on above: Order Comment: 111-2 Performed By: #### L [id number] #### [facility] [address] [place], [address] (080) Cholesterol [Mass/Vol] 141 mg/dL Normal <=200 [place] Comment on above: Order Comment: 111-2 Result Comment: Chol esterol level, Desirable <200 mg/dL Borderline high cholesterol 200-239 mg/dL High cholesterol >=240 mg/dL Recommendations of the NCEP Adult Treatment Panel for the following risk-cutoff thresholds for the [place] population. Performed By: #### L 501.1400 #### [facility] [address] [place], [address] (390) Cholesterol in HDL [Mass/Vol] 31 mg/dL Low [facility] Comment on above: Order Comment: 111-2 Result Comment: Fabienne onal Cholesterol Education Program (NCEP) guidelines: <40 mg/dL: Low HDL-cholesterol (major risk factor for CHD) >= 60 mg/dL: High HDL-cholesterol (negative risk factor for CHD) HDL-cholesterol is affected by a number of factors, e.g. smoking, exercise, hormones, sex and age. Performed By: #### L 501.1400 #### [facility] [address] [place], [address] (076) Cholesterol in LDL [Mass/Vol] 67 mg/dL Normal [facility] Comment on above: Order Comment: 111-2 Result Comment: Bord uzhval=466-298 mg/dL Higher Jbaw=174 mg/dL or greater Performed By: #### L 501.1400 #### [facility] [address] [place], [place], [id number] Cholesterol in VLDL [Mass/Vol] 43 mg/dL High 5-40 [facility] Comment on above: Order Comment: 111-2 Performed By: #### L [id number] #### [facility] [address] [place], [place], [address] Triglyceride [Mass/Vol] 215 mg/dL High [facility] Comment on above: Order Comment: 111-2 Result Comment: The drugs N-Acetylcysteine and Metamizole may falsely depress this assay. Normal range: <150 mg/dL Borderline High: 150-199 mg/dL High: 200-499 mg/dL Very High: >500 mg/dL Performed By: #### L 501.1400 #### [facility] [address] [place], [place], [id number] Screening total cholesterol/ high density lipoprotein (HDL) cholesterol ratioOrdered By: Alfredo Phipps on 02-11-2025 Cholesterol.total/Choles terol in HDL [Mass ratio] 4.53 {ratio} [facility] Serum or plasma cholesterol in HDL measurement (mass/volume)Ordered By: Alfredo Phipps on 02-11-2025 Cholesterol in HDL [Mass/Vol] 31 mg/dL Low >40 [facility] Comment on above: National Cholesterol Education Program (NCEP) guidelines:<40 mg/dL: Low HDL-cholesterol (major risk factor for CHD)>= 60 mg/dL: High HDL-cholesterol (negative risk factor for CHD)HDL-cholesterol is affected by a number of factors, e.g. smoking, exercise, hormones, sex and age. Serum or plasma cholesterol measurement (mass/volume)Ordered By: Alfredo Phipps on 02-11-2025 Cholesterol [Mass/Vol] 141 mg/dL <201 [place] Comment on above: Cholesterol level, D esirable <200 mg/dLBorderline high cholesterol 200-239 mg/dLHigh cholesterol >=240 mg/dLRecommendations of the NCEP Adult Treatment Panel for the following risk-cutoff thresholds for the [place] population. Triglycerides measurementOrd ered By: Alfredo Phipps on 02-11-2025 Triglyceride [Mass/Vol] 215 mg/dL High <199 [facility] Comment on above: The drugs N-Acetylcy steine and Metamizole may falsely depress this assay. Normal range: <150 mg/dLBorderline High: 150-199 mg/dLHigh: 200-499 mg/dLVery High: >500 mg/dL Hemoglobin A1con 02-06-2025 HbA1c (Bld) [Mass fraction] 5.8 % Normal <=5.6 [facility] Comment on above: Order Comment: 111-2 Performed By: #### L 501.1400 #### [facility] [address] [place], [place], [address] Hemoglobin A1c percentageOrd ered By: Alfredo Phipps on 02-06-2025 HbA1c (Bld) [Mass fraction] 5.8 % >5.7 [facility] Lithiumon 01-30-2025 LI 0.71 mmol/L Normal 0.60-1.20 [facility] Comment on above: Order Comment: 111.2 Performed By: #### L 100.0500, L500.4050, L501.1400 #### [facility] [address] [place], [place], [address] [place] levelOrdered By: Benoit Ferraro on 01-30-2025 [place] Level 0.71 mmol/L 0.60-1.20 [facility] Serum or plasma uric acid me asurement (mass/volume)Ordered By: Adam Ferraro on 01-25-2025 Urate [Mass/Vol] 6.2 mg/dL 3.5-7.2 [facility] Comment on above: The drugs N-Acetylcy steine and Metamizole may falsely depress this assay. Uric Acidon 01-25-2025 URIC 6.2 mg/dL Normal 3.5-7.2 [facility] Comment on above: Order Comment: URIC ACID ADDED TO 05/24/25 LABWORK Result Comment: The drugs N-Acetylcysteine and Metamizole may falsely depress this assay. Performed By: #### L 100.0500, L500.4050, L501.1400 #### [facility] [address] [place], [address] Microalb:Creat Ratio,Random URon 01-03-2025 Creatinine [Mass/Vol] 104.00 mg/dL Normal NO RAN GE EST. [facility] Comment on above: Performed By: #### L 501.2300, L500.4050, L501.9060, L100.0100 #### [facility] [address] [place], [address] MALB:CRE TNP Normal <30 mg/g CRE [facility] Comment on above: Performed By: #### L 501.2300, L500.4050, L501.9060, L100.0100 #### [facility] [address] [place], [address] MICROALBUMIN,UR < 5.0 Normal NO RANGE EST. [facility] Comment on above: Performed By: #### L 501.2300, L500.4050, L501.9060, L100.0100 #### [facility] [address] [place], [address] Random urine microalbumin me asurementOrdered By: Adam Ferraro on 01-03-2025 Urine Random Microalbumin < 5.0 mg/L NO RANGE EST. [facility] Urine albumin/creatinine rat io for detection of microalbuminuriaOrdered By: Adam Ferraor on 01-03-2025 Urine Microalbumin/Creatinine Ratio TNP [facility] Comment on above: Test not performed Urine creatinine measurement (mass/volume)Ordered By: Adam Ferraro on 01-03-2025 Creatinine (U) [Mass/Vol] 104.00 mg/dL NO RANGE EST. [facility] Absolute lymphocyte countOrd ered By: Adam Ferraro on 01-02-2025 Lymphocytes Auto (Unsp spec) [#/Vol] 2.41 10*3/uL 0.83-4.51 [facility] Absolute neutrophil countOrd ered By: Adam Muñozmele on 01-02-2025 Neutrophils (Bld) [#/Vol] 5.6 10*3/uL 2.0-7.7 [facility] Albumin to globulin ratioOrd ered By: Adam Muñozmele on 01-02-2025 Albumin/Globulin [Mass ratio] 1.0 {ratio} 0.9-2.4 [facility] Automated lymphocyte count a s percentage of total leukocytesOrdered By: Adam Muñozmele on 01-02-2025 Lymphocytes/100 WBC Auto (Unsp spec) 25.1 % [facility] Basophil percentageOrdered B y: Adam Muñozmele on 01-02-2025 Basophils/100 WBC (Bld) 1.1 % High 0-1 [facility] Bilirubin, totalOrdered By: Adam Muñozmele on 01-02-2025 Bilirubin [Mass/Vol] 0.30 mg/dL 0.20-1.00 [facility] Comment on above: For patients on eltr ombopag therapy, use of Dimension [place] TBIL is not recommended. Blood urea nitrogen (BUN)/cr eatinine ratioOrdered By: Adam Muñozmele on 01-02-2025 Urea nitrogen/Creatinine [Mass ratio] 12.6 mg/mg 10 [facility] CBC W/Diff, Automatedon 12-15 Absolute Lymph 2.41 X10 3/uL Normal 0.83-4.51 [facility] Comment on above: Order Comment: 111.2 Performed By: #### L 501.2300, L500.4050, L501.9060, L100.0100 #### [facility] [address] [place], [address] Absolute Neut 5.6 X10 3/uL Normal 2.0-7.7 [facility] Comment on above: Order Comment: 111.2 Performed By: #### L 501.2300, L500.4050, L501.9060, L100.0100 #### [facility] [address] [place], [address] Basophils/100 WBC (Bld) 1.1 % High 0-1 [facility] Comment on above: Order Comment: 111.2 Performed By: #### L 501.2300, L500.4050, L501.9060, L100.0100 #### [facility] [address] [place], [address] Eosinophils/100 WBC (Bld) 5.3 % High 0-5 [facility] Comment on above: Order Comment: 111.2 Performed By: #### L 501.2300, L500.4050, L501.9060, L100.0100 #### [facility] [address] [place], [address] Erythrocyte distribution width (RBC) [Ratio] 12.9 % Normal 11.6-14.6 [facility] Comment on above: Order Comment: 111.2 Performed By: #### L 501.2300, L500.4050, L501.9060, L100.0100 #### [facility] [address] [place], [address] Hematocrit (Bld) [Volume fraction] 40.5 % Normal 40-54 [facility] Comment on above: Order Comment: 111.2 Performed By: #### L 501.2300, L500.4050, L501.9060, L100.0100 #### [facility] [address] [place], [address] Hemoglobin (Bld) [Mass/Vol] 13.4 g/dL Normal 13.0-16.5 [facility] Comment on above: Order Comment: 111.2 Performed By: #### L 501.2300, L500.4050, L501.9060, L100.0100 #### [facility] [address] [place], [address] IG% 0.500 Normal 0.0-0.9 [facility] Comment on above: Order Comment: 111.2 Result Comment: IG% - Immature Granulocytes (promyelocytes, myelocytes and metamyelocytes) > 1% indicates that a LEFT SHIFT is Present. Performed By: #### L 501.2300, L500.4050, L501.9060, L100.0100 #### [facility] [address] [place], [address] Lymphocytes/100 WBC (Bld) 25.1 % Normal 19-41 [facility] Comment on above: Order Comment: 111.2 Performed By: #### L 501.2300, L500.4050, L501.9060, L100.0100 #### [facility] [address] [place], [address] MCH (RBC) [Entitic mass] 30.0 pg Normal 27.0-32.0 [facility] Comment on above: Order Comment: 111.2 Performed By: #### L 501.2300, L500.4050, L501.9060, L100.0100 #### [facility] [address] [place], [address] MCHC (RBC) [Mass/Vol] 33.1 g/dL Normal 32-36 [facility] Comment on above: Order Comment: 111.2 Performed By: #### L 501.2300, L500.4050, L501.9060, L100.0100 #### [facility] [address] [place], [address] MCV (RBC) [Entitic vol] 90.8 fL Normal 80-94 [facility] Comment on above: Order Comment: 111.2 Performed By: #### L 501.2300, L500.4050, L501.9060, L100.0100 #### [facility] [address] [place], [address] Monocytes/100 WBC (Bld) 9.4 % Normal 0-10 [facility] Comment on above: Order Comment: 111.2 Performed By: #### L 501.2300, L500.4050, L501.9060, L100.0100 #### [facility] [address] [place], [address] Neutrophils/100 WBC (Bld) 58.6 % Normal 47-70 [facility] Comment on above: Order Comment: 111.2 Performed By: #### L 501.2300, L500.4050, L501.9060, L100.0100 #### [facility] [address] [place], [address] Nucleated RBC (Bld) [#/Vol] 0 10*3/uL Normal 0-5 [facility] Comment on above: Order Comment: 111.2 Performed By: #### L 501.2300, L500.4050, L501.9060, L100.0100 #### [facility] [address] [place], [address] Platelet mean volume (Bld) [Entitic vol] 9.5 fL Normal 6.2-12.0 [facility] Comment on above: Order Comment: 111.2 Performed By: #### L 501.2300, L500.4050, L501.9060, L100.0100 #### [facility] [address] [place], [address] Platelets (Bld) [#/Vol] 247 10*3/uL Normal 150-450 [facility] Comment on above: Order Comment: 111.2 Performed By: #### L 501.2300, L500.4050, L501.9060, L100.0100 #### [facility] [address] [place], [address] RBC (Bld) [#/Vol] 4.46 10*6/uL Low 4.6-6.2 [facility] Comment on above: Order Comment: 111.2 Performed By: #### L 501.2300, L500.4050, L501.9060, L100.0100 #### [facility] [address] [place], [address] RDW SD 41.9 fl Normal 35.1-43.9 [facility] Comment on above: Order Comment: 111.2 Performed By: #### L 501.2300, L500.4050, L501.9060, L100.0100 #### [facility] [address] [place], [address] WBC (Bld) [#/Vol] 9.6 10*3/uL Normal 4.4-11.0 [facility] Comment on above: Order Comment: 111.2 Performed By: #### L 501.2300, L500.4050, L501.9060, L100.0100 #### [facility] [address] [place], [address] Carbon dioxide measurementOr dered By: Adam Ferraro on 01-02-2025 CO2 [Moles/Vol] 25.0 mmol/L 21.0-32.0 [facility] Chloride measurementOrdered By: Adam Ferraro on 01-02-2025 Chloride [Moles/Vol] 109 mmol/L High 98-107 [facility] Comprehensive Metabolic Prof ilon 01-02-2025 Albumin [Mass/Vol] 3.1 g/dL Low 3.2-5.0 [facility] Comment on above: Order Comment: 111.2 Performed By: #### L 501.2300, L500.4050, L501.9060, L100.0100 #### [facility] [address] [place], [address] Albumin/Globulin [Mass ratio] 1.0 {ratio} Normal 0.9-2.4 [facility] Comment on above: Order Comment: 111.2 Performed By: #### L 501.2300, L500.4050, L501.9060, L100.0100 #### [facility] [address] [place], [address] ALK P 81 U/L Normal 45-117 [facility] Comment on above: Order Comment: 111.2 Performed By: #### L 501.2300, L500.4050, L501.9060, L100.0100 #### [facility] [address] [place], [address] ALT [Catalytic activity/Vol] 17 U/L Normal 16-61 [facility] Comment on above: Order Comment: 111.2 Performed By: #### L 501.2300, L500.4050, L501.9060, L100.0100 #### [facility] [address] [place], [address] AST [Catalytic activity/Vol] 12 U/L Low 15-37 [facility] Comment on above: Order Comment: 111.2 Performed By: #### L 501.2300, L500.4050, L501.9060, L100.0100 #### [facility] [address] [place], [address] Bilirubin [Mass/Vol] 0.30 mg/dL Normal 0.20-1.00 [facility] Comment on above: Order Comment: 111.2 Result Comment: For patients on eltrombopag therapy, use of Dimension [place] TBIL is not recommended. Performed By: #### L 501.2300, L500.4050, L501.9060, L100.0100 #### [facility] [address] [place] [place], [address] BUN/CRE 12.6 RATIO Normal 10-20 [facility] Comment on above: Order Comment: 111.2 Performed By: #### L 501.2300, L500.4050, L501.9060, L100.0100 #### [facility] [address] [place], [address] CA,Total 9.4 mg/dL Normal 8.5-10.1 [facility] Comment on above: Order Comment: 111.2 Performed By: #### L 501.2300, L500.4050, L501.9060, L100.0100 #### [facility] [address] [place], [address] Chloride [Moles/Vol] 109 mmol/L High 98-107 [facility] Comment on above: Order Comment: 111.2 Performed By: #### L 501.2300, L500.4050, L501.9060, L100.0100 #### [facility] [address] [place], [address] CO2 [Moles/Vol] 25.0 mmol/L Normal 21.0-32.0 [facility] Comment on above: Order Comment: 111.2 Performed By: #### L 501.2300, L500.4050, L501.9060, L100.0100 #### [facility] [address] [place], [address] Creatinine [Mass/Vol] 2.14 mg/dL High 0.70-1.30 [facility] Comment on above: Order Comment: 111.2 Result Comment: The validity of the calculated GFR GFRAA in patients over 70 years has not been determined. Clinical correlation is essential. Performed By: #### L 501.2300, L500.4050, L501.9060, L100.0100 #### [facility] [address] [place], [address] EST GFR - AA 41 mL/min Low >60 [facility] Comment on above: Order Comment: 111.2 Result Comment: Afri can [place] GFR Calc Performed By: #### L 501.2300, L500.4050, L501.9060, L100.0100 #### [facility] [address] [place], [address] GAP 7 Normal 5-15 [facility] Comment on above: Order Comment: 111.2 Performed By: #### L 501.2300, L500.4050, L501.9060, L100.0100 #### [facility] [address] [place], [address] GFR/1.73 sq M.predicted among non-blacks MDRD (S/P/Bld) [Vol rate/Area] 34 mL/min/{1.73_m2} Low >60 [facility] Comment on above: Order Comment: 111.2 Result Comment: Non- GFR Calc Performed By: #### L 501.2300, L500.4050, L501.9060, L100.0100 #### [facility] [address] [place], [address] Globulin (S) [Mass/Vol] 3.1 g/dL Normal 2.2-4.2 [facility] Comment on above: Order Comment: 111.2 Performed By: #### L 501.2300, L500.4050, L501.9060, L100.0100 #### [facility] [address] [place], [address] Glucose [Mass/Vol] 115 mg/dL High 74-106 [facility] Comment on above: Order Comment: 111.2 Result Comment: Fast ing Glucose result from 100 to 125 mg/dL suggests IMPAIRED HOMEOSTASIS per A.D.A. criteria. Performed By: #### L 501.2300, L500.4050, L501.9060, L100.0100 #### [facility] [address] [place], [address] Potassium [Moles/Vol] 4.1 mmol/L Normal 3.5-5.1 [facility] Comment on above: Order Comment: 111.2 Performed By: #### L 501.2300, L500.4050, L501.9060, L100.0100 #### [facility] [address] [place], [address] Sodium [Moles/Vol] 141 mmol/L Normal 136-145 [facility] Comment on above: Order Comment: 111.2 Performed By: #### L 501.2300, L500.4050, L501.9060, L100.0100 #### [facility] [address] [place], [address] T PROT 6.2 g/dL Low 6.4-8.2 [facility] Comment on above: Order Comment: 111.2 Performed By: #### L 501.2300, L500.4050, L501.9060, L100.0100 #### [facility] [address] [place], [address] Urea nitrogen [Mass/Vol] 27 mg/dL High 7-18 [facility] Comment on above: Order Comment: 111.2 Performed By: #### L 501.2300, L500.4050, L501.9060, L100.0100 #### [facility] [address] [place], [address] Eosinophil percentageOrdered By: Adam Ferraro on 01-02-2025 Eosinophils/100 WBC (Bld) 5.3 % High 0-5 [facility] Erythrocyte distribution wid th ratioOrdered By: Adam Ferraro on 01-02-2025 Erythrocyte distribution width (RBC) [Ratio] 12.9 % 11.6-14.6 [facility] Erythrocyte distribution wid th standard deviationOrdered By: Adam Ferraro on 01-02-2025 Erythrocyte distribution width (RBC) [Entitic vol] 41.9 fL 35.1-43.9 [facility] Erythrocyte distribution width (RBC) [Ratio] 41.9 fl 35.1-43.9 [facility] Estimated glomerular filtrat ion rate (GFR) AmericanOrdered By: Adam Ferraro on 01-02-2025 Estimated GFR (MDRD) Amer 41 mL/min Low >60 [facility] Comment on above: GFR Calc Glomerular filtration rate ( GFR) estimationOrdered By: Adam Ferraro on 01-02-2025 Estimated GFR (MDRD) Non-Af Amer 34 mL/min Low >60 [facility] Comment on above: Non- GFR Calc GFR/1.73 sq M.predicted among non-blacks MDRD (S/P/Bld) [Vol rate/Area] 34 mL/min/{1.73_m2} Low >60 [facility] Comment on above: Non- GFR Calc Glucose measurementOrdered B y: Adam Ferraro on 01-02-2025 Glucose [Mass/Vol] 115 mg/dL High 74-106 [facility] Comment on above: Fasting Glucose resu lt from 100 to 125 mg/dL suggests IMPAIRED HOMEOSTASIS per A.D.A. criteria. Hematocrit Auto (Bld) [Volum e fraction]Ordered By: Adam Ferraro on 01-02-2025 Hematocrit (Bld) [Volume fraction] 40.5 % 40-54 [facility] Hemoglobin measurementOrdere d By: Adma Ferraro on 01-02-2025 Hemoglobin (Bld) [Mass/Vol] 13.4 g/dL 13.0-16.5 [facility] Immature granulocytes/100 WB C Auto (Bld)Ordered By: Adam Ferraro on 01-02-2025 Immature granulocytes/100 WBC (Bld) 0.500 % 0.0-0.9 [facility] Comment on above: IG% - Immature Granu locytes (promyelocytes, myelocytes and metamyelocytes) > 1% indicates that a LEFT SHIFT is Present. Laboratory - Chemistry and C hemistry - challengeOrdered By: Adam Ferraro on 01-02-2025 AST [Catalytic activity/Vol] 12 U/L Low 15-37 [facility] Lithiumon 01-02-2025 LI 0.60 mmol/L Normal 0.60-1.20 [facility] Comment on above: Order Comment: 111.2 Performed By: #### L 501.9640, L500.4050, L501.9060, L100.0100 #### [facility] [address] [place], [address] [place] levelOrdered By: Benoit Ferraro on 01-02-2025 [place] Level 0.60 mmol/L 0.60-1.20 [facility] Lymphocytes Auto (Unsp spec) [#/Vol]Ordered By: Adam Ferraro on 01-02-2025 Lymphocytes (Bld) [#/Vol] 2.41 10*3/uL 0.83-4.51 [facility] Lymphocytes/100 WBC Auto (Un sp spec)Ordered By: Adam Ferraro on 01-02-2025 Lymphocytes/100 WBC (Bld) 25.1 % 19-41 [facility] MCV (mean corpuscular volume ) determinationOrdered By: Adam Ferraro on 01-02-2025 MCV (RBC) [Entitic vol] 90.8 fL 80-94 [facility] Mean corpuscular hemoglobin (MCH) determinationOrdered By: Adam Ferraro on 01-02-2025 MCH (RBC) [Entitic mass] 30.0 pg 27.0-32.0 [facility] Mean corpuscular hemoglobin concentration (MCHC) determinationOrdered By: Adam Ferraro on 01-02-2025 MCHC (RBC) [Mass/Vol] 33.1 g/dL 32-36 [facility] Mean platelet volume determi nationOrdered By: Adam Ferraro on 01-02-2025 Platelet mean volume (Bld) [Entitic vol] 9.5 fL 6.2-12.0 [facility] Monocyte percentageOrdered B y: Adam Ferraro on 01-02-2025 Monocytes/100 WBC (Bld) 9.4 % 0-10 [facility] Neutrophil percentageOrdered By: Adam Ferraro on 01-02-2025 Neutrophils/100 WBC (Bld) 58.6 % 47-70 [facility] Nucleated red blood cell per centageOrdered By: Adam Ferraro on 01-02-2025 Nucleated RBC/100 WBC (Bld) [Ratio] 0 % 0-5 [facility] Phosphoruson 01-02-2025 Phosphate [Mass/Vol] 4.7 mg/dL Normal 2.5-4.9 [facility] Comment on above: Order Comment: 111.2 Performed By: #### L 501.2300, L500.4050, L501.9060, L100.0100 #### [facility] [place], [address] Phosphorus measurementOrdere d By: Adam Ferraro on 01-02-2025 Phosphorus Level 4.7 mg/dL 2.5-4.9 [facility] Platelet countOrdered By: Sabino Ferraro on 01-02-2025 Platelets (Bld) [#/Vol] 247 10*3/uL 150-450 [facility] Potassium measurementOrdered By: Adam Ferraro on 01-02-2025 Potassium [Moles/Vol] 4.1 mmol/L 3.5-5.1 [facility] RBC Auto (Bld) [#/Vol]Ordere d By: Adam Ferraro on 01-02-2025 RBC (Bld) [#/Vol] 4.46 10*6/uL Low 4.6-6.2 [facility] Serum anion gap measurementO rdered By: Adam Ferraro on 01-02-2025 Anion gap [Moles/Vol] 7 mmol/L 5-15 [facility] Serum globulin measurementOr dered By: Adam Ferraro on 01-02-2025 Globulin (S) [Mass/Vol] 3.1 g/dL 2.2-4.2 [facility] Serum or plasma alanine sesay otransferase (ALT) measurementOrdered By: Adam Ferraro on 01-02-2025 ALT [Catalytic activity/Vol] 17 U/L 16-61 [facility] Serum or plasma albumin you urement (mass/volume)Ordered By: Adam Ferraro on 01-02-2025 Albumin [Mass/Vol] 3.1 g/dL Low 3.2-5.0 [facility] Serum or plasma alkaline hal sphatase measurementOrdered By: Adam Ferraro on 01-02-2025 ALP [Catalytic activity/Vol] 81 U/L 45-117 [facility] Serum or plasma calcium you urement (mass/volume)Ordered By: Adam Ferraro on 01-02-2025 Calcium [Mass/Vol] 9.4 mg/dL 8.5-10.1 [facility] Serum or plasma creatinine m easurement (mass/volume)Ordered By: Adam Ferraro on 01-02-2025 Creatinine [Mass/Vol] 2.14 mg/dL High 0.70-1.30 [facility] Comment on above: The validity of the calculated GFR & GFRAA in patients over 70 years has not been determined. Clinical correlation is essential. Serum or plasma urea nitroge n measurement (mass/volume)Ordered By: Adam Ferraro on 01-02-2025 Urea nitrogen [Mass/Vol] 27 mg/dL High 7-18 [facility] Sodium levelOrdered By: Spike Ferraro on 01-02-2025 Sodium [Moles/Vol] 141 mmol/L 136-145 [facility] Total proteinOrdered By: Benoit Ferraro on 01-02-2025 Protein [Mass/Vol] 6.2 g/dL Low 6.4-8.2 [facility] White blood cell (WBC) count Ordered By: Adam Ferraro on 01-02-2025 WBC (Bld) [#/Vol] 9.6 10*3/uL 4.4-11.0 [facility] Albumin to globulin ratioOrd ered By: Adam Ferraro on 12-28-2024 Albumin/Globulin [Mass ratio] 0.9 {ratio} 0.9-2.4 [facility] Bilirubin, totalOrdered By: Adam Ferraro on 12-28-2024 Bilirubin [Mass/Vol] 0.30 mg/dL 0.20-1.00 [facility] Comment on above: For patients on eltr ombopag therapy, use of Dimension [place] TBIL is not recommended. Blood urea nitrogen (BUN)/cr eatinine ratioOrdered By: Adam Ferraro on 12-28-2024 Urea nitrogen/Creatinine [Mass ratio] 10.0 mg/mg 10-20 [facility] CBC-Complete Blood Cnt No Di ffon 12-28-2024 Erythrocyte distribution width (RBC) [Ratio] 13.1 % Normal 11.6-14.6 [facility] Comment on above: Order Comment: 111.2 Performed By: #### L 501.2300, L500.4050, L501.9060, L100.0100 #### [facility] [address] [place], [address] Hematocrit (Bld) [Volume fraction] 40.4 % Normal 40-54 [facility] Comment on above: Order Comment: 111.2 Performed By: #### L 501.2300, L500.4050, L501.9060, L100.0100 #### [facility] [address] [place], [address] Hemoglobin (Bld) [Mass/Vol] 13.2 g/dL Normal 13.0-16.5 [facility] Comment on above: Order Comment: 111.2 Performed By: #### L 501.2300, L500.4050, L501.9060, L100.0100 #### [facility] [address] [place], [address] MCH (RBC) [Entitic mass] 29.7 pg Normal 27.0-32.0 [facility] Comment on above: Order Comment: 111.2 Performed By: #### L 501.2300, L500.4050, L501.9060, L100.0100 #### [facility] [address] [place], [address] MCHC (RBC) [Mass/Vol] 32.7 g/dL Normal 32-36 [facility] Comment on above: Order Comment: 111.2 Performed By: #### L 501.2300, L500.4050, L501.9060, L100.0100 #### [facility] [address] [place], [address] MCV (RBC) [Entitic vol] 91.0 fL Normal 80-94 [facility] Comment on above: Order Comment: 111.2 Performed By: #### L 501.2300, L500.4050, L501.9060, L100.0100 #### [facility] [address] [place], [address] Platelet mean volume (Bld) [Entitic vol] 9.3 fL Normal 6.2-12.0 [facility] Comment on above: Order Comment: 111.2 Performed By: #### L 501.2300, L500.4050, L501.9060, L100.0100 #### [facility] [address] [place], [address] Platelets (Bld) [#/Vol] 248 10*3/uL Normal 150-450 [facility] Comment on above: Order Comment: 111.2 Performed By: #### L 501.2300, L500.4050, L501.9060, L100.0100 #### [facility] [address] [place], [address] RBC (Bld) [#/Vol] 4.44 10*6/uL Low 4.6-6.2 [facility] Comment on above: Order Comment: 111.2 Performed By: #### L 501.2300, L500.4050, L501.9060, L100.0100 #### [facility] [address] [place], [address] RDW SD 42.4 fl Normal 35.1-43.9 [facility] Comment on above: Order Comment: 111.2 Performed By: #### L 501.2300, L500.4050, L501.9060, L100.0100 #### [facility] [address] [place], [address] WBC (Bld) [#/Vol] 10.5 10*3/uL Normal 4.4-11.0 [facility] Comment on above: Order Comment: 111.2 Performed By: #### L 501.2300, L500.4050, L501.9060, L100.0100 #### [facility] [address] [place], [address] Carbon dioxide measurementOr dered By: Adam Ferraro on 12-28-2024 CO2 [Moles/Vol] 25.0 mmol/L 21.0-32.0 [facility] Chloride measurementOrdered By: Adam Ferraro on 12-28-2024 Chloride [Moles/Vol] 110 mmol/L High 98-107 [facility] Comprehensive Metabolic Prof ilon 12-28-2024 Albumin [Mass/Vol] 3.0 g/dL Low 3.2-5.0 [facility] Comment on above: Order Comment: 111.2 Performed By: #### L 501.2300, L500.4050, L501.9060, L100.0100 #### [facility] [address] [place], [address] Albumin/Globulin [Mass ratio] 0.9 {ratio} Normal 0.9-2.4 [facility] Comment on above: Order Comment: 111.2 Performed By: #### L 501.2300, L500.4050, L501.9060, L100.0100 #### [facility] [address] [place], [address] ALK P 81 U/L Normal 45-117 [facility] Comment on above: Order Comment: 111.2 Performed By: #### L 501.2300, L500.4050, L501.9060, L100.0100 #### [facility] [address] [place], [address] ALT [Catalytic activity/Vol] 20 U/L Normal 16-61 [facility] Comment on above: Order Comment: 111.2 Performed By: #### L 501.2300, L500.4050, L501.9060, L100.0100 #### [facility] [address] [place], [address] AST [Catalytic activity/Vol] 11 U/L Low 15-37 [facility] Comment on above: Order Comment: 111.2 Performed By: #### L 501.2300, L500.4050, L501.9060, L100.0100 #### [facility] [address] [place], [address] Bilirubin [Mass/Vol] 0.30 mg/dL Normal 0.20-1.00 [facility] Comment on above: Order Comment: 111.2 Result Comment: For patients on eltrombopag therapy, use of Dimension [place] TBIL is not recommended. Performed By: #### L 501.2300, L500.4050, L501.9060, L100.0100 #### [facility] [address] [place], [address] BUN/CRE 10.0 RATIO Normal 10-20 [facility] Comment on above: Order Comment: 111.2 Performed By: #### L 501.2300, L500.4050, L501.9060, L100.0100 #### [facility] [address] [place], [address] CA,Total 9.3 mg/dL Normal 8.5-10.1 [facility] Comment on above: Order Comment: 111.2 Performed By: #### L 501.2300, L500.4050, L501.9060, L100.0100 #### [facility] [address] [place], [address] Chloride [Moles/Vol] 110 mmol/L High 98-107 [facility] Comment on above: Order Comment: 111.2 Performed By: #### L 501.2300, L500.4050, L501.9060, L100.0100 #### [facility] [address] [place], [address] CO2 [Moles/Vol] 25.0 mmol/L Normal 21.0-32.0 [facility] Comment on above: Order Comment: 111.2 Performed By: #### L 501.2300, L500.4050, L501.9060, L100.0100 #### [facility] [address] [place], [address] Creatinine [Mass/Vol] 2.09 mg/dL High 0.70-1.30 [facility] Comment on above: Order Comment: 111.2 Result Comment: The validity of the calculated GFR GFRAA in patients over 70 years has not been determined. Clinical correlation is essential. Performed By: #### L 501.2300, L500.4050, L501.9060, L100.0100 #### [facility] [address] [place], [address] EST GFR - AA 42 mL/min Low >60 [facility] Comment on above: Order Comment: 111.2 Result Comment: Afri can Lithuanian GFR Calc Performed By: #### L 501.2300, L500.4050, L501.9060, L100.0100 #### [facility] [address] [place], [address] GAP 6 Normal 5-15 [facility] Comment on above: Order Comment: 111.2 Performed By: #### L 501.2300, L500.4050, L501.9060, L100.0100 #### [facility] [address] [place], [address] GFR/1.73 sq M.predicted among non-blacks MDRD (S/P/Bld) [Vol rate/Area] 34 mL/min/{1.73_m2} Low >60 [facility] Comment on above: Order Comment: 111.2 Result Comment: Non- GFR Calc Performed By: #### L 501.2300, L500.4050, L501.9060, L100.0100 #### [facility] [address] [place], [address] Globulin (S) [Mass/Vol] 3.4 g/dL Normal 2.2-4.2 [facility] Comment on above: Order Comment: 111.2 Performed By: #### L 501.2300, L500.4050, L501.9060, L100.0100 #### [facility] [address] [place], [address] Glucose [Mass/Vol] 119 mg/dL High 74-106 [facility] Comment on above: Order Comment: 111.2 Result Comment: Fast ing Glucose result from 100 to 125 mg/dL suggests IMPAIRED HOMEOSTASIS per A.D.A. criteria. Performed By: #### L 501.2300, L500.4050, L501.9060, L100.0100 #### [facility] [address] [place], [address] Potassium [Moles/Vol] 4.3 mmol/L Normal 3.5-5.1 [facility] Comment on above: Order Comment: 111.2 Performed By: #### L 501.2300, L500.4050, L501.9060, L100.0100 #### [facility] [address] [place], [address] Sodium [Moles/Vol] 141 mmol/L Normal 136-145 [facility] Comment on above: Order Comment: 111.2 Performed By: #### L 501.2300, L500.4050, L501.9060, L100.0100 #### [facility] [address] [place], [address] T PROT 6.4 g/dL Normal 6.4-8.2 [facility] Comment on above: Order Comment: 111.2 Performed By: #### L 501.2300, L500.4050, L501.9060, L100.0100 #### [facility] [address] [place], [address] Urea nitrogen [Mass/Vol] 21 mg/dL High 7-18 [facility] Comment on above: Order Comment: 111.2 Performed By: #### L 501.2300, L500.4050, L501.9060, L100.0100 #### [facility] [address] [place], [address] Erythrocyte distribution wid th ratioOrdered By: Adam Ferraro on 12-28-2024 Erythrocyte distribution width (RBC) [Ratio] 13.1 % 11.6-14.6 [facility] Erythrocyte distribution wid th standard deviationOrdered By: Adam Ferraro on 12-28-2024 Erythrocyte distribution width (RBC) [Entitic vol] 42.4 fL 35.1-43.9 [facility] Erythrocyte distribution width (RBC) [Ratio] 42.4 fl 35.1-43.9 [facility] Estimated glomerular filtrat ion rate (GFR) AmericanOrdered By: Adam Ferraro on 12-28-2024 Estimated GFR (MDRD) Amer 42 mL/min Low >60 [facility] Comment on above: GFR Calc Glomerular filtration rate ( GFR) estimationOrdered By: Adam Ferraro on 12-28-2024 Estimated GFR (MDRD) Non-Af Amer 34 mL/min Low >60 [facility] Comment on above: Non- GFR Calc GFR/1.73 sq M.predicted among non-blacks MDRD (S/P/Bld) [Vol rate/Area] 34 mL/min/{1.73_m2} Low >60 [facility] Comment on above: Non- GFR Calc Glucose measurementOrdered B y: Adam Ferraro on 12-28-2024 Glucose [Mass/Vol] 119 mg/dL High 74-106 [facility] Comment on above: Fasting Glucose resu lt from 100 to 125 mg/dL suggests IMPAIRED HOMEOSTASIS per A.D.A. criteria. Hematocrit Auto (Bld) [Volum e fraction]Ordered By: Adam Ferraro on 12-28-2024 Hematocrit (Bld) [Volume fraction] 40.4 % 40-54 [facility] Hemoglobin measurementOrdere d By: Adam Ferraro on 12-28-2024 Hemoglobin (Bld) [Mass/Vol] 13.2 g/dL 13.0-16.5 [facility] - Chemistry and C hemistry - challengeOrdered By: Adam Ferraro on 12-28-2024 AST [Catalytic activity/Vol] 11 U/L Low 15-37 [facility] MCV (mean corpuscular volume ) determinationOrdered By: Adam Ferraro on 12-28-2024 MCV (RBC) [Entitic vol] 91.0 fL 80-94 [facility] Mean corpuscular hemoglobin (MCH) determinationOrdered By: Adam Ferraro on 12-28-2024 MCH (RBC) [Entitic mass] 29.7 pg 27.0-32.0 [facility] Mean corpuscular hemoglobin concentration (MCHC) determinationOrdered By: Adam Ferraro on 12-28-2024 MCHC (RBC) [Mass/Vol] 32.7 g/dL 32-36 [facility] Mean platelet volume determi nationOrdered By: Adam Ferraro on 12-28-2024 Platelet mean volume (Bld) [Entitic vol] 9.3 fL 6.2-12.0 [facility] Platelet countOrdered By: Sabino Ferraro on 12-28-2024 Platelets (Bld) [#/Vol] 248 10*3/uL 150-450 [facility] Potassium measurementOrdered By: Adam Ferraro on 12-28-2024 Potassium [Moles/Vol] 4.3 mmol/L 3.5-5.1 [facility] RBC Auto (Bld) [#/Vol]Ordere d By: Adam Ferraro on 12-28-2024 RBC (Bld) [#/Vol] 4.44 10*6/uL Low 4.6-6.2 [facility] Serum anion gap measurementO rdered By: Adam Ferraro on 12-28-2024 Anion gap [Moles/Vol] 6 mmol/L 5-15 [facility] Serum globulin measurementOr dered By: Adam Ferraro on 12-28-2024 Globulin (S) [Mass/Vol] 3.4 g/dL 2.2-4.2 [facility] Serum or plasma alanine sesay otransferase (ALT) measurementOrdered By: Adam Ferraro on 12-28-2024 ALT [Catalytic activity/Vol] 20 U/L 16-61 [facility] Serum or plasma albumin you urement (mass/volume)Ordered By: Adam Ferraro on 12-28-2024 Albumin [Mass/Vol] 3.0 g/dL Low 3.2-5.0 [facility] Serum or plasma alkaline hal sphatase measurementOrdered By: dAam Ferraro 12-28-2024 ALP [Catalytic activity/Vol] 81 U/L 45-117 [facility] Serum or plasma calcium you urement (mass/volume)Ordered By: Adam Ferraro on 12-28-2024 Calcium [Mass/Vol] 9.3 mg/dL 8.5-10.1 [facility] Serum or plasma creatinine m easurement (mass/volume)Ordered By: Adam Ferraro on 12-28-2024 Creatinine [Mass/Vol] 2.09 mg/dL High 0.70-1.30 [facility] Comment on above: The validity of the calculated GFR & GFRAA in patients over 70 years has not been determined. Clinical correlation is essential. Serum or plasma urea nitroge n measurement (mass/volume)Ordered By: Adam Ferraro on 12-28-2024 Urea nitrogen [Mass/Vol] 21 mg/dL High 7-18 [facility] Serum or plasma uric acid me asurement (mass/volume)Ordered By: Adam Ferraro on 12-28-2024 Urate [Mass/Vol] 5.8 mg/dL 3.5-7.2 [facility] Comment on above: The drugs N-Acetylcy steine and Metamizole may falsely depress this assay. Sodium levelOrdered By: Spike Ferraro on 12-28-2024 Sodium [Moles/Vol] 141 mmol/L 136-145 [facility] Total proteinOrdered By: Benoit Ferraor on 12-28-2024 Protein [Mass/Vol] 6.4 g/dL 6.4-8.2 [facility] Uric Acidon 12-28-2024 URIC 5.8 mg/dL Normal 3.5-7.2 [facility] Comment on above: Order Comment: 111.2 Result Comment: The drugs N-Acetylcysteine and Metamizole may falsely depress this assay. Performed By: #### L 501.2300, L500.4050, L501.9060, L100.0100 #### [facility] [address] [place], [address] White blood cell (WBC) count Ordered By: Adam Ferraro on 12-28-2024 WBC (Bld) [#/Vol] 10.5 10*3/uL 4.4-11.0 [facility] Serum or plasma uric acid me asurement (mass/volume)Ordered By: Adam Ferraro on 11-27-2024 Urate [Mass/Vol] 5.8 mg/dL 3.5-7.2 [facility] Comment on above: The drugs N-Acetylcy steine and Metamizole may falsely depress this assay. Uric Acidon 11-27-2024 URIC 5.8 mg/dL Normal 3.5-7.2 [facility] Comment on above: Order Comment: 111.2 Result Comment: The drugs N-Acetylcysteine and Metamizole may falsely depress this assay. Performed By: #### L 100.0500, L500.4050, L501.1400 #### [facility] [address] [place], [address] Absolute neutrophil countOrd ered By: Adam Ferraro on 11-15-2024 Neutrophils (Bld) [#/Vol] 6.8 10*3/uL 2.0-7.7 [facility] Basic Metabolic Profile (BMP )on 11-15-2024 BUN/CRE 10.0 RATIO Normal 10-20 [facility] Comment on above: Order Comment: 111.2 20250501 Performed By: #### L 501.9060 #### [facility] [address] [place], [address] CA,Total 9.6 mg/dL Normal 8.5-10.1 [facility] Comment on above: Order Comment: 111.2 20250501 Performed By: #### L 501.9060 #### [facility] [address] [place], [address] Chloride [Moles/Vol] 108 mmol/L High 98-107 [facility] Comment on above: Order Comment: 111.2 20250501 Performed By: #### L 501.9060 #### [facility] [address] [place], [address] CO2 [Moles/Vol] 23.0 mmol/L Normal 21.0-32.0 [facility] Comment on above: Order Comment: 111.2 20250501 Performed By: #### L 501.9060 #### [facility] [address] [place], [address] Creatinine [Mass/Vol] 2.30 mg/dL High 0.70-1.30 [facility] Comment on above: Order Comment: 111.2 20250501 Result Comment: The validity of the calculated GFR GFRAA in patients over 70 years has not been determined. Clinical correlation is essential. Performed By: #### L 501.9060 #### [facility] [address] [place], [address] EST GFR - AA 37 mL/min Low >60 [facility] Comment on above: Order Comment: 111.2 20250501 Result Comment: Afri can Lithuanian GFR Calc Performed By: #### L [id number] #### [facility] [address] [place], [address] GAP 8 Normal 5-15 [facility] Comment on above: Order Comment: 111.2 20250501 Performed By: #### L [id number] #### [facility] [address] [place], [address] GFR/1.73 sq M.predicted among non-blacks MDRD (S/P/Bld) [Vol rate/Area] 31 mL/min/{1.73_m2} Low >60 [facility] Comment on above: Order Comment: 111.2 20250501 Result Comment: Non- GFR Calc Performed By: #### L 501.9060 #### [facility] [address] [place], [address] Glucose [Mass/Vol] 114 mg/dL High 74-106 [facility] Comment on above: Order Comment: 111.2 20250501 Result Comment: Fast ing Glucose result from 100 to 125 mg/dL suggests IMPAIRED HOMEOSTASIS per A.D.A. criteria. Performed By: #### L [id number] #### [facility] [address] [place], [address] Potassium [Moles/Vol] 4.2 mmol/L Normal 3.5-5.1 [facility] Comment on above: Order Comment: 111.2 20250501 Performed By: #### L 501.9060 #### [facility] [address] [place], [address] Sodium [Moles/Vol] 140 mmol/L Normal 136-145 [facility] Comment on above: Order Comment: 111.2 20250501 Performed By: #### L 501.9060 #### [facility] [address] [place], [address] Urea nitrogen [Mass/Vol] 23 mg/dL High -18 [facility] Comment on above: Order Comment: 111.2 20250501 Performed By: #### L 501.9060 #### [facility] [address], [address] Basophil percentageOrdered B y: Adam Ferraro on 11-15-2024 Basophils/100 WBC (Bld) 1.2 % High 0-1 [facility] Blood urea nitrogen (BUN)/cr eatinine ratioOrdered By: Adam Ferraro on 11-15-2024 Urea nitrogen/Creatinine [Mass ratio] 10.0 mg/mg 10-20 [facility] CBC W/Diff, Automatedon Absolute Lymph 2.67 X10 3/uL Normal 0.83-4.51 [facility] Comment on above: Order Comment: URIC ACID ADDED TO 05/24/25 LABWORK Performed By: #### L 100.0500, L500.4050, L501.1400 #### [facility] [address] [place], [address] Absolute Neut 6.8 X10 3/uL Normal 2.0-7.7 [facility] Comment on above: Order Comment: URIC ACID ADDED TO 05/24/25 LABWORK Performed By: #### L 100.0500, L500.4050, L501.1400 #### [facility] [address] [place], [address] Basophils/100 WBC (Bld) 1.2 % High 0-1 [facility] Comment on above: Order Comment: URIC ACID ADDED TO 05/24/25 LABWORK Performed By: #### L 100.0500, L500.4050, L501.1400 #### [facility] [address] [place], [address] Eosinophils/100 WBC (Bld) 4.6 % Normal 0-5 [facility] Comment on above: Order Comment: URIC ACID ADDED TO 05/24/25 LABWORK Performed By: #### L 100.0500, L500.4050, L501.1400 #### [facility] [address] [place], [address] Erythrocyte distribution width (RBC) [Ratio] 12.9 % Normal 11.6-14.6 [facility] Comment on above: Order Comment: URIC ACID ADDED TO 05/24/25 LABWORK Performed By: #### L 100.0500, L500.4050, L501.1400 #### [facility] [address] [place], [address] Hematocrit (Bld) [Volume fraction] 41.5 % Normal 40-54 [facility] Comment on above: Order Comment: URIC ACID ADDED TO 05/24/25 LABWORK Performed By: #### L 100.0500, L500.4050, L501.1400 #### [facility] [address] [place], [address] Hemoglobin (Bld) [Mass/Vol] 13.6 g/dL Normal 13.0-16.5 [facility] Comment on above: Order Comment: URIC ACID ADDED TO 05/24/25 LABWORK Performed By: #### L 100.0500, L500.4050, L501.1400 #### [facility] [address] [place], [address] IG% 0.500 Normal 0.0-0.9 [facility] Comment on above: Order Comment: URIC ACID ADDED TO 05/24/25 LABWORK Result Comment: IG% - Immature Granulocytes (promyelocytes, myelocytes and metamyelocytes) > 1% indicates that a LEFT SHIFT is Present. Performed By: #### L 100.0500, L500.4050, L501.1400 #### [facility] [address] [place], [address] Lymphocytes/100 WBC (Bld) 23.8 % Normal 19-41 [facility] Comment on above: Order Comment: URIC ACID ADDED TO 05/24/25 LABWORK Performed By: #### L 100.0500, L500.4050, L501.1400 #### [facility] [address] [place], [address] MCH (RBC) [Entitic mass] 29.9 pg Normal 27.0-32.0 [facility] Comment on above: Order Comment: URIC ACID ADDED TO 05/24/25 LABWORK Performed By: #### L 100.0500, L500.4050, L501.1400 #### [facility] [address] [place], [address] MCHC (RBC) [Mass/Vol] 32.8 g/dL Normal 32-36 [facility] Comment on above: Order Comment: URIC ACID ADDED TO 05/24/25 LABWORK Performed By: #### L 100.0500, L500.4050, L501.1400 #### [facility] [address] [place], [address] MCV (RBC) [Entitic vol] 91.2 fL Normal 80-94 [facility] Comment on above: Order Comment: URIC ACID ADDED TO 05/24/25 LABWORK Performed By: #### L 100.0500, L500.4050, L501.1400 #### [facility] [address] [place], [address] Monocytes/100 WBC (Bld) 9.8 % Normal 0-10 [facility] Comment on above: Order Comment: URIC ACID ADDED TO 05/24/25 LABWORK Performed By: #### L 100.0500, L500.4050, L501.1400 #### [facility] [address] [place], [address] Neutrophils/100 WBC (Bld) 60.1 % Normal 47-70 [facility] Comment on above: Order Comment: URIC ACID ADDED TO 05/24/25 LABWORK Performed By: #### L 100.0500, L500.4050, L501.1400 #### [facility] [address] [place], [address] Nucleated RBC (Bld) [#/Vol] 0 10*3/uL Normal 0-5 [facility] Comment on above: Order Comment: URIC ACID ADDED TO 05/24/25 LABWORK Performed By: #### L 100.0500, L500.4050, L501.1400 #### [facility] [address] [place], [address] Platelet mean volume (Bld) [Entitic vol] 9.5 fL Normal 6.2-12.0 [facility] Comment on above: Order Comment: URIC ACID ADDED TO 05/24/25 LABWORK Performed By: #### L 100.0500, L500.4050, L501.1400 #### [facility] [address] [place], [address] Platelets (Bld) [#/Vol] 257 10*3/uL Normal 150-450 [facility] Comment on above: Order Comment: URIC ACID ADDED TO 05/24/25 LABWORK Performed By: #### L 100.0500, L500.4050, L501.1400 #### [facility] [address] [place], [address] RBC (Bld) [#/Vol] 4.55 10*6/uL Low 4.6-6.2 [facility] Comment on above: Order Comment: URIC ACID ADDED TO 05/24/25 LABWORK Performed By: #### L 100.0500, L500.4050, L501.1400 #### [facility] [address] [place], [address] RDW SD 42.9 fl Normal 35.1-43.9 [facility] Comment on above: Order Comment: URIC ACID ADDED TO 05/24/25 LABWORK Performed By: #### L 100.0500, L500.4050, L501.1400 #### [facility] [address] [place], [address] WBC (Bld) [#/Vol] 11.2 10*3/uL High 4.4-11.0 [facility] Comment on above: Order Comment: URIC ACID ADDED TO 05/24/25 LABWORK Performed By: #### L 100.0500, L500.4050, L501.1400 #### [facility] [address] [place], [address] Carbon dioxide measurementOr dered By: Adam Ferraor on 11-15-2024 CO2 [Moles/Vol] 23.0 mmol/L 21.0-32.0 [facility] Chloride measurementOrdered By: Adam Ferraro on 11-15-2024 Chloride [Moles/Vol] 108 mmol/L High 98-107 [facility] Eosinophil percentageOrdered By: Adam Ferraro on 11-15-2024 Eosinophils/100 WBC (Bld) 4.6 % 0-5 [facility] Erythrocyte distribution wid th ratioOrdered By: Adam Ferraro on 11-15-2024 Erythrocyte distribution width (RBC) [Ratio] 12.9 % 11.6-14.6 [facility] Erythrocyte distribution wid th standard deviationOrdered By: Adam Ferraro on 11-15-2024 Erythrocyte distribution width (RBC) [Entitic vol] 42.9 fL 35.1-43.9 [facility] Estimated glomerular filtrat ion rate (GFR) AmericanOrdered By: Adam Ferraro on 11-15-2024 Estimated GFR (MDRD) Amer 37 mL/min Low >60 [facility] Comment on above: GFR Calc Glomerular filtration rate ( GFR) estimationOrdered By: Adam Ferraro on 11-15-2024 Estimated GFR (MDRD) Non-Af Amer 31 mL/min Low >60 [facility] Comment on above: Non- GFR Calc Glucose measurementOrdered B y: Adam Ferraro on 11-15-2024 Glucose [Mass/Vol] 114 mg/dL High 74-106 [facility] Comment on above: Fasting Glucose resu lt from 100 to 125 mg/dL suggests IMPAIRED HOMEOSTASIS per A.D.A. criteria. Hematocrit Auto (Bld) [Volum e fraction]Ordered By: Adam Ferraro on 11-15-2024 Hematocrit (Bld) [Volume fraction] 41.5 % 40-54 [facility] Hemoglobin measurementOrdere d By: Adam Ferraro on 11-15-2024 Hemoglobin (Bld) [Mass/Vol] 13.6 g/dL 13.0-16.5 [facility] Immature granulocytes/100 WB C Auto (Bld)Ordered By: Adam Ferraro on 11-15-2024 Immature granulocytes/100 WBC (Bld) 0.500 % 0.0-0.9 [facility] Comment on above: IG% - Immature Granu locytes (promyelocytes, myelocytes and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 1,000 mg (120 mg-180 mg) cap Take 1 capsule by mouth once daily. - PALIPERIDONE ORAL Take 6 mg by mouth as directed. Problem List As Of Date 05/21/2024 Noted Resolved Pneumonia, Organism Unspecified [J18.9] 01/29/2008 02/11/2010 Acute Gastritis without Mention of Hemorrhage [*05/28/2008 02/11/2010 Nontraumatic rupture of other tendons of foot a*10/08/2009 07/30/2016 Routine general medical examination at [facility]*10/21/2009 01/29/2013 Class: Chronic Bipolar affective disorder (HCC) [F31.9] 10/21/2009 Tobacco abuse [Z72.0] 10/21/2009 07/10/2018 Porokeratosis [Q82.8] 02/03/2010 Gastritis, chronic [K29.50] 02/11/2010 07/10/2018 Erosive esophagitis [K22.10] 02/11/2010 Achilles bursitis or tendinitis [M76.60] 03/20/2010 07/30/2016 Contusion of unspecified site [T14.8XXA] 03/30/2010 07/30/2016 Enthesopathy of unspecified site [M77.9] 11/25/2010 07/10/2018 Other physical therapy [UCT9011] 11/25/2010 07/10/2018 Low HDL (under 40) [E78.6] [...] (more content not included)... Normal [facility] Absolute lymphocyte countOrd ered By: Alfredo Phipps on 02-03-2024 Lymphocytes Auto (Unsp spec) [#/Vol] 2.12 10*3/uL 0.83-4.51 [facility] Automated lymphocyte count a s percentage of total leukocytesOrdered By: Alfredo Phipps on 02-03-2024 Lymphocytes/100 WBC Auto (Unsp spec) 20.5 % 19-41 [facility] Basophil percentageOrdered B y: Alfredo Phipps on 02-03-2024 Basophil percentage 4.0 mg/dL 2.5-4.9 [facility] Basophils/100 WBC (Bld) 0.9 % 0-1 [facility] Chloride [Moles/Vol] 109 mmol/L 98-107 [facility] Eosinophils/100 WBC (Bld) 3.9 % 0-5 [facility] Glucose [Mass/Vol] 122 mg/dL 74-106 [facility] Comment on above: Fasting Glucose resu lt from 100 to 125 mg/dL suggests IMPAIRED HOMEOSTASIS per A.D.A. criteria. Hemoglobin (Bld) [Mass/Vol] 13.3 g/dL 13.0-16.5 [facility] Monocytes/100 WBC (Bld) 8.8 % 0-10 [facility] Neutrophils (Bld) [#/Vol] 6.8 10*3/uL 2.0-7.7 [facility] Neutrophils/100 WBC (Bld) 65.2 % 47-70 [facility] Potassium [Moles/Vol] 4.1 mmol/L 3.5-5.1 [facility] Sodium [Moles/Vol] 140 mmol/L 136-145 [facility] WBC (Bld) [#/Vol] 10.4 10*3/uL 4.4-11.0 [facility] Determination of erythrocyte mean corpuscular volume (MCV)Ordered By: Alfredo Phipps on 02-03-2024 MCV (RBC) [Entitic vol] 89.0 fL 80-94 [facility] Erythrocyte distribution wid th ratioOrdered By: Alfredo Phipps on 02-03-2024 Erythrocyte distribution width (RBC) [Ratio] 13.6 % 11.6-14.6 [facility] Erythrocyte distribution wid th standard deviationOrdered By: Alfredo Phipps on 02-03-2024 Erythrocyte distribution width (RBC) [Entitic vol] 44.2 fL 35.1-43.9 [facility] Hematocrit Auto (Bld) [Volum e fraction]Ordered By: Alfredo Phipps on 02-03-2024 Hematocrit (Bld) [Volume fraction] 40.4 % 40-54 [facility] Immature granulocytes/100 WB C Auto (Bld)Ordered By: Alfredo Phipps on 02-03-2024 Immature granulocytes/100 WBC (Bld) 0.700 % 0.0-0.9 [facility] Comment on above: IG% - Immature Granu locytes (promyelocytes, myelocytes and metamyelocytes) > 1% indicates that a LEFT SHIFT is Present. Laboratory - Chemistry and C hemistry - challengeOrdered By: Alfredo Phipps on 02-03-2024 CO2 [Moles/Vol] 24.0 mmol/L 21.0-32.0 [facility] Urea nitrogen/Creatinine [Mass ratio] 10.9 mg/mg 10-20 [facility] Laboratory - Hematology and Cell countsOrdered By: Alfredo Phipps on 02-03-2024 MCH (RBC) [Entitic mass] 29.3 pg 27.0-32.0 [facility] MCHC (RBC) [Mass/Vol] 32.9 g/dL 32-36 [facility] Nucleated RBC/100 WBC (Bld) [Ratio] 0 % 0-5 [facility] Platelet mean volume (Bld) [Entitic vol] 9.5 fL 6.2-12.0 [facility] Platelets (Bld) [#/Vol] 234 10*3/uL 150-450 [facility] No Panel InformationOrdered By: Alfredo Phipps on 02-03-2024 Estimated GFR (MDRD) Amer 48 mL/min >60 [facility] Comment on above: GFR Calc Estimated GFR (MDRD) Non-Af Amer 40 mL/min >60 [facility] Comment on above: Non- GFR Calc [place] Level 0.60 mmol/L 0.60-1.20 [facility] RBC Auto (Bld) [#/Vol]Ordere d By: Alfredo Phipps on 02-03-2024 RBC (Bld) [#/Vol] 4.54 10*6/uL 4.6-6.2 [facility] Serum or plasma calcium you urement (mass/volume)Ordered By: Alfredo Phipps on 02-03-2024 Calcium [Mass/Vol] 9.2 mg/dL 8.5-10.1 [facility] Serum or plasma creatinine m easurement (mass/volume)Ordered By: Alfredo Phipps on 02-03-2024 Creatinine [Mass/Vol] 1.84 mg/dL 0.70-1.30 [facility] Comment on above: The validity of the calculated GFR & GFRAA in patients over 70 years has not been determined. Clinical correlation is essential. Serum or plasma urea nitroge n measurement (mass/volume)Ordered By: Alfredo Phipps on 02-03-2024 Urea nitrogen [Mass/Vol] 20 mg/dL 7-18 [facility] Thin prep Papanicolaou smear with manual screeningOrdered By: Alfredo Phipps on 02-03-2024 Thin prep Papanicolaou smear with manual screening 3.0 g/dL 3.2-5.0 [facility] Protein (U) [Mass/Vol] 19.8 mg/dL 0.0-11.8 [place] Urine creatinine measurement (mass/volume)Ordered By: Alfredo Phipps on 02-03-2024 Creatinine (U) [Mass/Vol] 116.00 mg/dL NO RANGE EST. [facility] Urine protein/creatinine mas s ratioOrdered By: Alfredo Phipps on 02-03-2024 Protein/Creatinine (U) [Mass ratio] 171 mg/g CRE 0-200 [facility] Absolute lymphocyte countOrd ered By: Alfredo Phipps on 01-06-2024 Lymphocytes Auto (Unsp spec) [#/Vol] 2.00 10*3/uL 0.83-4.51 [facility] Automated lymphocyte count a s percentage of total leukocytesOrdered By: Alfredo Phipps on 01-06-2024 Lymphocytes/100 WBC Auto (Unsp spec) 20.9 % 19-41 [facility] Basophil percentageOrdered B y: Alfredo Phipps on 01-06-2024 Basophil percentage 4.2 mg/dL 2.5-4.9 [facility] Basophils/100 WBC (Bld) 0.8 % 0-1 [facility] Chloride [Moles/Vol] 109 mmol/L 98-107 [facility] Eosinophils/100 WBC (Bld) 3.9 % 0-5 [facility] Glucose [Mass/Vol] 113 mg/dL 74-106 [facility] Comment on above: Fasting Glucose resu lt from 100 to 125 mg/dL suggests IMPAIRED HOMEOSTASIS per A.D.A. criteria. Hemoglobin (Bld) [Mass/Vol] 13.7 g/dL 13.0-16.5 [facility] Monocytes/100 WBC (Bld) 8.4 % 0-10 [facility] Neutrophils (Bld) [#/Vol] 6.3 10*3/uL 2.0-7.7 [facility] Neutrophils/100 WBC (Bld) 65.7 % 47-70 [facility] Potassium [Moles/Vol] 4.2 mmol/L 3.5-5.1 [facility] Sodium [Moles/Vol] 143 mmol/L 136-145 [facility] WBC (Bld) [#/Vol] 9.6 10*3/uL 4.4-11.0 [facility] Determination of erythrocyte mean corpuscular volume (MCV)Ordered By: Alfredo Phipps on 01-06-2024 MCV (RBC) [Entitic vol] 90.1 fL 80-94 [facility] Erythrocyte distribution wid th ratioOrdered By: Alfredo Phipps on 01-06-2024 Erythrocyte distribution width (RBC) [Ratio] 13.2 % 11.6-14.6 [facility] Erythrocyte distribution wid th standard deviationOrdered By: Alfredo Phipps on 01-06-2024 Erythrocyte distribution width (RBC) [Entitic vol] 43.2 fL 35.1-43.9 [facility] Hematocrit Auto (Bld) [Volum e fraction]Ordered By: Alfredo Phipps on 01-06-2024 Hematocrit (Bld) [Volume fraction] 41.7 % 40-54 [facility] Immature granulocytes/100 WB C Auto (Bld)Ordered By: Alfredo Phipps on 01-06-2024 Immature granulocytes/100 WBC (Bld) 0.300 % 0.0-0.9 [facility] Comment on above: IG% - Immature Granu locytes (promyelocytes, myelocytes and metamyelocytes) > 1% indicates that a LEFT SHIFT is Present. Laboratory - Chemistry and C hemistry - challengeOrdered By: Alfredo Phipps on 01-06-2024 CO2 [Moles/Vol] 24.0 mmol/L 21.0-32.0 [facility] Urea nitrogen/Creatinine [Mass ratio] 8.9 mg/mg 10-20 [facility] Laboratory - Hematology and Cell countsOrdered By: Alfredo Phipps on 01-06-2024 MCH (RBC) [Entitic mass] 29.6 pg 27.0-32.0 [facility] MCHC (RBC) [Mass/Vol] 32.9 g/dL 32-36 [facility] Nucleated RBC/100 WBC (Bld) [Ratio] 0 % 0-5 [facility] Platelet mean volume (Bld) [Entitic vol] 9.6 fL 6.2-12.0 [facility] Platelets (Bld) [#/Vol] 209 10*3/uL 150-450 [facility] No Panel InformationOrdered By: Alfredo Phipps on 01-06-2024 Estimated GFR (MDRD) Amer 44 mL/min >60 [facility] Comment on above: GFR Calc Estimated GFR (MDRD) Non-Af Amer 36 mL/min >60 [facility] Comment on above: Non- GFR Calc [place] Level 0.60 mmol/L 0.60-1.20 [facility] RBC Auto (Bld) [#/Vol]Ordere d By: Alfredo Phipps on 01-06-2024 RBC (Bld) [#/Vol] 4.63 10*6/uL 4.6-6.2 [facility] Serum or plasma calcium you urement (mass/volume)Ordered By: Alfredo Phipps on 01-06-2024 Calcium [Mass/Vol] 9.3 mg/dL 8.5-10.1 [facility] Serum or plasma creatinine m easurement (mass/volume)Ordered By: Alfredo Phipps on 01-06-2024 Creatinine [Mass/Vol] 2.02 mg/dL 0.70-1.30 [facility] Comment on above: The validity of the calculated GFR & GFRAA in patients over 70 years has not been determined. Clinical correlation is essential. Serum or plasma urea nitroge n measurement (mass/volume)Ordered By: Alfredo Phipps on 01-06-2024 Urea nitrogen [Mass/Vol] 18 mg/dL 7-18 [facility] Thin prep Papanicolaou smear with manual screeningOrdered By: Alfredo Phipps on 01-06-2024 Thin prep Papanicolaou smear with manual screening 3.3 g/dL 3.2-5.0 [facility] Protein (U) [Mass/Vol] 19.0 mg/dL 0.0-11.8 [place] Urine creatinine measurement (mass/volume)Ordered By: Alfredo Phipps on 01-06-2024 Creatinine (U) [Mass/Vol] 122.00 mg/dL NO RANGE EST. [facility] Urine protein/creatinine mas s ratioOrdered By: Alfredo Phipps on 01-06-2024 Protein/Creatinine (U) [Mass ratio] 156 mg/g CRE 0-200 [facility] CBC W Auto Differential pane l (Bld)on 12-20-2023 Basophils (Bld) [#/Vol] 0.11 10*3/uL High <0.11 k/uL [facility] Basophils/100 WBC (Bld) 1.0 % [facility] Differential cell count method Nom (Bld) Auto [facility] Eosinophils (Bld) [#/Vol] 0.31 10*3/uL <0.46 k/uL [facility] Eosinophils/100 WBC (Bld) 2.8 % [facility] Erythrocyte distribution width (RBC) [Ratio] 12.9 % 11.5 - 15.0 % [facility] Hematocrit (Bld) [Volume fraction] 46.0 % 39.0 - 51.0 % [facility] Hemoglobin (Bld) [Mass/Vol] 15.2 g/dL 13.0 - 17.0 g/dL [facility] Immature granulocytes (Bld) [#/Vol] 0.06 10*3/uL <0.10 k/uL [facility] Immature granulocytes/100 WBC (Bld) 0.5 % [facility] Lymphocytes (Bld) [#/Vol] 1.82 10*3/uL 1.00 - 4.00 k/uL [facility] Lymphocytes/100 WBC (Bld) 16.5 % [facility] MCH (RBC) [Entitic mass] 28.9 pg 26. 0 - 34.0 pg [facility] MCHC (RBC) [Mass/Vol] 33.0 g/dL 30.5 - 36.0 g/dL [facility] MCV (RBC) [Entitic vol] 87.5 fL 80.0 - 100.0 fL [facility] Monocytes (Bld) [#/Vol] 0.88 10*3/uL High <0.87 k/uL [facility] Monocytes/100 WBC (Bld) 8.0 % [facility] Neutrophils (Bld) [#/Vol] 7.82 10*3/uL High 1.45 - 7.50 k/uL [facility] Neutrophils/100 WBC (Bld) 71.2 % [facility] Nucleated RBC (Bld) [#/Vol] <0.01 k/uL [facility] Nucleated RBC/100 WBC (Bld) [Ratio] 0.0 /100 WBC [facility] Platelet mean volume (Bld) [Entitic vol] 9.4 fL 9.0 - 12.7 fL [facility] Platelets (Bld) [#/Vol] 247 10*3/uL 150 - 400 k/uL [facility] RBC (Bld) [#/Vol] 5.26 10*6/uL 4.20 - 6.00 m/uL [facility] WBC (Bld) [#/Vol] 11.00 10*3/uL 3.70 - 11.00 k/uL [facility] CYSTATIN Con 12-20-2023 Cystatin C [Mass/Vol] 1.87 mg/L High 0.61 - 0.95 mg/L [facility] Cystatin C eGFR 34 mL/min/1.73m Low >=60 mL/min/1.7 3m [facility] Comprehensive metabolic 2000 panelon 12-20-2023 Albumin [Mass/Vol] 4.2 g/dL 3.9 - 4.9 g/dL [facility] ALP [Catalytic activity/Vol] 105 U/L 38 - 113 U/L [facility] ALT [Catalytic activity/Vol] 31 U/L 10 - 54 U/L [facility] Anion gap [Moles/Vol] 15 mmol/L 9 - 18 mmol/L [facility] AST [Catalytic activity/Vol] 19 U/L 14 - 40 U/L [facility] Bilirubin [Mass/Vol] 0.3 mg/dL 0.2 - 1 .3 mg/dL [facility] Calcium [Mass/Vol] 10.2 mg/dL 8.5 - 10. 2 mg/dL [facility] Chloride [Moles/Vol] 103 mmol/L 97 - 10 5 mmol/L [facility] CO2 [Moles/Vol] 24 mmol/L 22 - 30 mmol/L [facility] Creatinine [Mass/Vol] 2.22 mg/dL High 0.73 - 1.22 mg/dL [facility] Estimated Glomerular Filtration Rate 33 mL/min/1.73m Low >=60 mL/min/1.7 3m [facility] Glucose [Mass/Vol] 114 mg/dL High 74 - 99 mg/dL [facility] Potassium [Moles/Vol] 4.2 mmol/L 3.7 - 5.1 mmol/L [facility] Protein [Mass/Vol] 7.0 g/dL 6.3 - 8.0 g/dL [facility] Sodium [Moles/Vol] 142 mmol/L 136 - 144 mmol/L [facility] Urea nitrogen [Mass/Vol] 19 mg/dL 9 - 24 mg/dL [facility] LIPID PANEL, NONFASTINGon Cholesterol [Mass/Vol] 139 mg/dL <200 mg/dL Cl [facility] HDL Cholesterol, Nonfasting 32 mg/dL Low >39 mg/dL [facility] LDL Cholesterol, Nonfasting 51 mg/dL <100 mg/dL [facility] LDL/HDL Ratio, Nonfasting 1.59 mg/dL <2.54 mg/dL [facility] Non HDL Cholesterol, Nonfasting 107 mg/dL <130 mg/dL [facility] Total Chol/HDL Ratio, Nonfasting 4.34 mg/dL <5.10 mg/dL [facility] Triglycerides, Nonfasting 280 mg/dL High <150 mg/dL [facility] VLDL Cholesterol, Nonfasting 56 mg/dL High <30 mg/dL [facility] PHOSPHORUS INORGANICon 12-20 Phosphate [Mass/Vol] 2.1 mg/dL Low 2.7 - 4 .8 mg/dL [facility] PROTEIN CREATININE RATIOon 0 12-20-2023 Protein/Creatinine (U) [Mass ratio] 0.07 mg/mg <0.15 mg/mg [facility] PTH INTACT BLDon 12-20-2023 Parathyrin.intact [Mass/Vol] 121 pg/mL High 15 - 65 pg/mL [facility] Protein/Creatinine (U) [Mass ratio]on 12-20-2023 Creatinine (U) [Mass/Vol] 103.8 mg/dL 20.0 - 300.0 mg/dL [facility] Protein (U) [Mass/Vol] 7 mg/dL 0 - 2 0 mg/dL [facility] URINALYSIS, REFLEX MICROSCOP ICon 12-20-2023 Bilirubin Ql (U) Negative Negative [facility] Clarity (Unsp spec) Clear Clear [facility] Color (U) Light Yellow Yellow [facility] Glucose Test strip (U) [Mass/Vol] Negative Trace, Negative [facility] Hemoglobin Ql (U) Negative Negative, Trace [facility] Ketones Ql (U) Negative Negative, Trace [facility] Leukocyte esterase Test strip Ql (U) Negative Negative, 25 Mary/uL [facility] Nitrite Ql (U) Negative Negative [facility] pH (U) 6.0 [pH] 5.0 - 8.0 [facility] Protein (U) [Mass/Vol] Negative Trace , Negative [facility] Specific gravity (U) [Rel density] 1.010 1.005 - 1.030 [facility] Urobilinogen Ql (U) Normal Normal [facility] Absolute lymphocyte countOrd ered By: Alfredo Phipps on 12-09-2023 Lymphocytes Auto (Unsp spec) [#/Vol] 2.24 10*3/uL 0.83-4.51 [facility] Automated lymphocyte count a s percentage of total leukocytesOrdered By: Alfredo Phipps on 12-09-2023 Lymphocytes/100 WBC Auto (Unsp spec) 23.2 % 19-41 [facility] Basophil percentageOrdered B y: Alfredo Phipps on 12-09-2023 Basophil percentage 3.8 mg/dL 2.5-4.9 [facility] Basophils/100 WBC (Bld) 1.0 % 0-1 [facility] Chloride [Moles/Vol] 110 mmol/L 98-107 [facility] Eosinophils/100 WBC (Bld) 3.9 % 0-5 [facility] Glucose [Mass/Vol] 129 mg/dL 74-106 [facility] Comment on above: Fasting Glucose resu lt greater than or equal to 126 mg/dL suggests DIABETES MELLITUS per A.D.A. criteria. Hemoglobin (Bld) [Mass/Vol] 13.9 g/dL 13.0-16.5 [facility] Monocytes/100 WBC (Bld) 9.3 % 0-10 [facility] Neutrophils (Bld) [#/Vol] 6.0 10*3/uL 2.0-7.7 [facility] Neutrophils/100 WBC (Bld) 62.2 % 47-70 [facility] Potassium [Moles/Vol] 3.5 mmol/L 3.5-5.1 [facility] Sodium [Moles/Vol] 138 mmol/L 136-145 [facility] WBC (Bld) [#/Vol] 9.7 10*3/uL 4.4-11.0 [facility] Determination of erythrocyte mean corpuscular volume (MCV)Ordered By: Alfredo Phipps on 12-09-2023 MCV (RBC) [Entitic vol] 90.2 fL 80-94 [facility] Erythrocyte distribution wid th ratioOrdered By: Alfredo Phipps on 12-09-2023 Erythrocyte distribution width (RBC) [Ratio] 13.1 % 11.6-14.6 [facility] Erythrocyte distribution wid th standard deviationOrdered By: Alfredo Phipps on 12-09-2023 Erythrocyte distribution width (RBC) [Entitic vol] 43.2 fL 35.1-43.9 [facility] Hematocrit Auto (Bld) [Volum e fraction]Ordered By: Alfredo Phipps on 12-09-2023 Hematocrit (Bld) [Volume fraction] 43.2 % 40-54 [facility] Immature granulocytes/100 WB C Auto (Bld)Ordered By: Alfredo Phipps on 12-09-2023 Immature granulocytes/100 WBC (Bld) 0.400 % 0.0-0.9 [facility] Comment on above: IG% - Immature Granu locytes (promyelocytes, myelocytes and metamyelocytes) > 1% indicates that a LEFT SHIFT is Present. Laboratory - Chemistry and C hemistry - challengeOrdered By: Alfredo Phipps on 12-09-2023 CO2 [Moles/Vol] 21.0 mmol/L 21.0-32.0 [facility] Urea nitrogen/Creatinine [Mass ratio] 7.4 mg/mg 10-20 [facility] Laboratory - Hematology and Cell countsOrdered By: Alfredo Phipps on 12-09-2023 MCH (RBC) [Entitic mass] 29.0 pg 27.0-32.0 [facility] MCHC (RBC) [Mass/Vol] 32.2 g/dL 32-36 [facility] Nucleated RBC/100 WBC (Bld) [Ratio] 0 % 0-5 [facility] Platelets (Bld) [#/Vol] 235 10*3/uL 150-450 [facility] No Panel InformationOrdered By: Alfredo Phipps on 12-09-2023 Estimated GFR (MDRD) Amer 44 mL/min >60 [facility] Comment on above: GFR Calc Estimated GFR (MDRD) Non-Af Amer 36 mL/min >60 [facility] Comment on above: Non- GFR Calc [place] Level 0.40 mmol/L 0.60-1.20 [facility] Platelet mean volume Naresh-Ec ker (Bld) [Entitic vol]Ordered By: Alfredo Phipps on 12-09-2023 Platelet mean volume (Bld) [Entitic vol] 9.5 fL 6.2-12.0 [facility] RBC Auto (Bld) [#/Vol]Ordere d By: Alfredo Phipps on 12-09-2023 RBC (Bld) [#/Vol] 4.79 10*6/uL 4.6-6.2 [facility] Serum or plasma calcium you urement (mass/volume)Ordered By: Alfredo Phipps on 12-09-2023 Calcium [Mass/Vol] 9.3 mg/dL 8.5-10.1 [facility] Serum or plasma creatinine m easurement (mass/volume)Ordered By: Alfredo Phipps on 12-09-2023 Creatinine [Mass/Vol] 2.02 mg/dL 0.70-1.30 [facility] Comment on above: The validity of the calculated GFR & GFRAA in patients over 70 years has not been determined. Clinical correlation is essential. Serum or plasma urea nitroge n measurement (mass/volume)Ordered By: Alfredo Phipps on 12-09-2023 Urea nitrogen [Mass/Vol] 15 mg/dL 7-18 [facility] Thin prep Papanicolaou smear with manual screeningOrdered By: Alfredo Phipps on 12-09-2023 Thin prep Papanicolaou smear with manual screening 3.2 g/dL 3.2-5.0 [facility] Urine creatinine measurement (mass/volume)Ordered By: Adam Ferraro on 11-16-2023 Creatinine (U) [Mass/Vol] 178.00 mg/dL NO RANGE EST. [facility] Urine protein measurement (m ass/volume)Ordered By: Adam Ferraro on 11-16-2023 Protein (U) [Mass/Vol] 28.7 mg/dL 0.0-11.8 [place] Urine protein/creatinine mas s ratioOrdered By: Adam Ferraro on 11-16-2023 Protein/Creatinine (U) [Mass ratio] 161 mg/g CRE 0-200 [facility] Absolute lymphocyte countOrd ered By: Adam Ferraro on 11-11-2023 Lymphocytes Auto (Unsp spec) [#/Vol] 3.10 10*3/uL 0.83-4.51 [facility] Basophil percentageOrdered B y: Adam Ferraro on 11-11-2023 Basophil percentage 3.6 mg/dL 2.5-4.9 [facility] Basophils/100 WBC (Bld) 0.8 % 0-1 [facility] Chloride [Moles/Vol] 108 mmol/L 98-107 [facility] Eosinophils/100 WBC (Bld) 3.4 % 0-5 [facility] Glucose [Mass/Vol] 120 mg/dL 74-106 [facility] Comment on above: Fasting Glucose resu lt from 100 to 125 mg/dL suggests IMPAIRED HOMEOSTASIS per A.D.A. criteria. Neutrophils (Bld) [#/Vol] 7.1 10*3/uL 2.0-7.7 [facility] Neutrophils/100 WBC (Bld) 61.0 % 47-70 [facility] Potassium [Moles/Vol] 3.6 mmol/L 3.5-5.1 [facility] Sodium [Moles/Vol] 140 mmol/L 136-145 [facility] WBC (Bld) [#/Vol] 11.6 10*3/uL 4.4-11.0 [facility] Blood erythrocytes count (nu mber/volume)Ordered By: Adam Ferraro on 11-11-2023 RBC (Bld) [#/Vol] 4.98 10*6/uL 4.6-6.2 [facility] Blood hemoglobin measurement (mass/volume)Ordered By: Adam Ferraro on 11-11-2023 Hemoglobin (Bld) [Mass/Vol] 14.4 g/dL 13.0-16.5 [facility] Blood lymphocytes/100 leukoc ytesOrdered By: Adam Ferraro on 11-11-2023 Lymphocytes/100 WBC (Bld) 26.7 % 19-41 [facility] Blood monocytes/100 leukocyt esOrdered By: Adam Ferraro on 11-11-2023 Monocytes/100 WBC (Bld) 7.3 % 0-10 [facility] Blood platelet mean volumeOr dered By: Adam Ferraro on 11-11-2023 Platelet mean volume (Bld) [Entitic vol] 9.4 fL 6.2-12.0 [facility] Determination of erythrocyte mean corpuscular volume (MCV)Ordered By: Adam Ferraro on 11-11-2023 MCV (RBC) [Entitic vol] 89.8 fL 80-94 [facility] Hematocrit Auto (Bld) [Volum e fraction]Ordered By: Adam Ferraro on 11-11-2023 Hematocrit (Bld) [Volume fraction] 44.7 % 40-54 [facility] Laboratory - Chemistry and C hemistry - challengeOrdered By: Adam Ferraro on 11-11-2023 CO2 [Moles/Vol] 24.0 mmol/L 21.0-32.0 [facility] Urea nitrogen/Creatinine [Mass ratio] 7.8 mg/mg 10-20 [facility] Laboratory - Hematology and Cell countsOrdered By: Adam Ferraro on 12-29-2023 Erythrocyte distribution width (RBC) [Entitic vol] 42.7 fL 35.1-43.9 [facility] Erythrocyte distribution width (RBC) [Ratio] 13.1 % 11.6-14.6 [facility] Immature granulocytes/100 WBC (Bld) 0.800 % 0.0-0.9 [facility] Comment on above: IG% - Immature Granu locytes (promyelocytes, myelocytes and metamyelocytes) > 1% indicates that a LEFT SHIFT is Present. MCH (RBC) [Entitic mass] 28.9 pg 27.0-32.0 [facility] Nucleated RBC/100 WBC (Bld) [Ratio] 0 % 0-5 [facility] MCHC Auto (RBC) [Mass/Vol]Or dered By: Adam Ferraro on 11-11-2023 MCHC (RBC) [Mass/Vol] 32.2 g/dL 32-36 [facility] No Panel InformationOrdered By: Adam Ferraro on 11-11-2023 Estimated GFR (MDRD) Amer 37 mL/min >60 [facility] Comment on above: GFR Calc Estimated GFR (MDRD) Non-Af Amer 31 mL/min >60 [facility] Comment on above: Non- GFR Calc [place] Level 0.60 mmol/L 0.60-1.20 [facility] Platelets bldOrdered By: Benoit Ferraro on 11-11-2023 Platelets (Bld) [#/Vol] 252 10*3/uL 150-450 [facility] Serum or plasma albumin you urement (mass/volume)Ordered By: Adam Ferraro on 11-11-2023 Albumin [Mass/Vol] 3.1 g/dL 3.2-5.0 [facility] Serum or plasma calcium you urement (mass/volume)Ordered By: Adam Ferraro on 11-11-2023 Calcium [Mass/Vol] 8.9 mg/dL 8.5-10.1 [facility] Serum or plasma creatinine m easurement (mass/volume)Ordered By: Adam Ferraro on 11-11-2023 Creatinine [Mass/Vol] 2.31 mg/dL 0.70-1.30 [facility] Comment on above: The validity of the calculated GFR & GFRAA in patients over 70 years has not been determined. Clinical correlation is essential. Serum or plasma urea nitroge n measurement (mass/volume)Ordered By: Adam Ferraro on 11-11-2023 Urea nitrogen [Mass/Vol] 18 mg/dL 7-18 [facility] Serum or plasma uric acid me asurement (mass/volume)Ordered By: Adam Ferraro on 10-27-2023 Urate [Mass/Vol] 8.1 mg/dL 3.5-7.2 [facility] Comment on above: The drugs N-Acetylcy steine and Metamizole may falsely depress this assay. Absolute lymphocyte countOrd ered By: Alfredo Phipps on 10-14-2023 Lymphocytes Auto (Unsp spec) [#/Vol] 1.52 10*3/uL 0.83-4.51 [facility] Basophil percentageOrdered B y: Alfredo Phipps on 10-14-2023 Basophil percentage 3.2 mg/dL 2.5-4.9 [facility] Basophils/100 WBC (Bld) 1.2 % 0-1 [facility] Chloride [Moles/Vol] 110 mmol/L 98-107 [facility] Eosinophils/100 WBC (Bld) 5.0 % 0-5 [facility] Glucose [Mass/Vol] 151 mg/dL 74-106 [facility] Comment on above: Fasting Glucose resu lt greater than or equal to 126 mg/dL suggests DIABETES MELLITUS per A.D.A. criteria. Neutrophils (Bld) [#/Vol] 6.6 10*3/uL 2.0-7.7 [facility] Neutrophils/100 WBC (Bld) 68.8 % 47-70 [facility] Potassium [Moles/Vol] 3.8 mmol/L 3.5-5.1 [facility] Sodium [Moles/Vol] 141 mmol/L 136-145 [facility] WBC (Bld) [#/Vol] 9.5 10*3/uL 4.4-11.0 [facility] Blood erythrocytes count (nu mber/volume)Ordered By: Alfredo Phipps on 10-14-2023 RBC (Bld) [#/Vol] 4.51 10*6/uL 4.6-6.2 [facility] Blood hemoglobin measurement (mass/volume)Ordered By: Alfredo Phipps on 10-14-2023 Hemoglobin (Bld) [Mass/Vol] 13.0 g/dL 13.0-16.5 [facility] Blood lymphocytes/100 leukoc ytesOrdered By: Alfredo Phipps on 10-14-2023 Lymphocytes/100 WBC (Bld) 15.9 % 19-41 [facility] Blood monocytes/100 leukocyt esOrdered By: Alfredo Phipps on 10-14-2023 Monocytes/100 WBC (Bld) 8.3 % 0-10 [facility] Blood platelet mean volumeOr dered By: Alfredo Phipps on 10-14-2023 Platelet mean volume (Bld) [Entitic vol] 9.7 fL 6.2-12.0 [facility] Determination of erythrocyte mean corpuscular volume (MCV)Ordered By: Alfredo Phipps on 10-14-2023 MCV (RBC) [Entitic vol] 90.2 fL 80-94 [facility] Hematocrit Auto (Bld) [Volum e fraction]Ordered By: Alfredo Phipps on 10-14-2023 Hematocrit (Bld) [Volume fraction] 40.7 % 40-54 [facility] Laboratory - Chemistry and C hemistry - challengeOrdered By: Alfredo Phipps on 10-14-2023 CO2 [Moles/Vol] 26.0 mmol/L 21.0-32.0 [facility] Urea nitrogen/Creatinine [Mass ratio] 7.5 mg/mg 10-20 [facility] Laboratory - Hematology and Cell countsOrdered By: Alfredo Phipps on 10-14-2023 Erythrocyte distribution width (RBC) [Entitic vol] 43.6 fL 35.1-43.9 [facility] Erythrocyte distribution width (RBC) [Ratio] 13.2 % 11.6-14.6 [facility] Immature granulocytes/100 WBC (Bld) 0.800 % 0.0-0.9 [facility] Comment on above: IG% - Immature Granu locytes (promyelocytes, myelocytes and metamyelocytes) > 1% indicates that a LEFT SHIFT is Present. MCH (RBC) [Entitic mass] 28.8 pg 27.0-32.0 [facility] Nucleated RBC/100 WBC (Bld) [Ratio] 0 % 0-5 [facility] Auto (RBC) [Mass/Vol]Or dered By: Alfredo Phipps on 10-14-2023 MCHC (RBC) [Mass/Vol] 31.9 g/dL 32-36 [facility] No Panel InformationOrdered By: Alfredo Phipps on 10-14-2023 Estimated GFR (MDRD) Amer 41 mL/min >60 [facility] Comment on above: GFR Calc Estimated GFR (MDRD) Non-Af Amer 34 mL/min >60 [facility] Comment on above: Non- GFR Calc [place] Level 0.50 mmol/L 0.60-1.20 [facility] Platelets bldOrdered By: Jennifer Phipps on 10-14-2023 Platelets (Bld) [#/Vol] 224 10*3/uL 150-450 [facility] Serum or plasma albumin you urement (mass/volume)Ordered By: Alfredo Phipps on 10-14-2023 Albumin [Mass/Vol] 2.9 g/dL 3.2-5.0 [facility] Serum or plasma calcium you urement (mass/volume)Ordered By: Alfredo Phipps on 10-14-2023 Calcium [Mass/Vol] 8.5 mg/dL 8.5-10.1 [facility] Serum or plasma creatinine m easurement (mass/volume)Ordered By: Alfredo Phipps on 10-14-2023 Creatinine [Mass/Vol] 2.12 mg/dL 0.70-1.30 [facility] Comment on above: The validity of the calculated GFR & GFRAA in patients over 70 years has not been determined. Clinical correlation is essential. Serum or plasma urea nitroge n measurement (mass/volume)Ordered By: Alfredo Phipps on 10-14-2023 Urea nitrogen [Mass/Vol] 16 mg/dL 7-18 [facility] Urine creatinine measurement (mass/volume)Ordered By: Alfredo Phipps on 10-14-2023 Creatinine (U) [Mass/Vol] 195.00 mg/dL NO RANGE EST. [facility] Urine protein measurement (m ass/volume)Ordered By: Alfredo Phipps on 10-14-2023 Protein (U) [Mass/Vol] 23.4 mg/dL 0.0-11.8 [place] Urine protein/creatinine mas s ratioOrdered By: Alfredo Phipps on 10-14-2023 Protein/Creatinine (U) [Mass ratio] 120 mg/g CRE 0-200 [facility] Serum or plasma uric acid me asurement (mass/volume)Ordered By: Adam Ferraro on 09-27-2023 Urate [Mass/Vol] 7.3 mg/dL 3.5-7.2 [facility] Comment on above: The drugs N-Acetylcy steine and Metamizole may falsely depress this assay. Absolute lymphocyte countOrd ered By: Alfredo Phipps on 09-16-2023 Lymphocytes Auto (Unsp spec) [#/Vol] 1.78 10*3/uL 0.83-4.51 [facility] Basophil percentageOrdered B y: Alfredo Phipps on 09-16-2023 Basophil percentage 4.3 mg/dL 2.5-4.9 [facility] Basophils/100 WBC (Bld) 1.0 % 0-1 [facility] Chloride [Moles/Vol] 109 mmol/L 98-107 [facility] Eosinophils/100 WBC (Bld) 4.4 % 0-5 [facility] Glucose [Mass/Vol] 143 mg/dL 74-106 [facility] Comment on above: Fasting Glucose resu lt greater than or equal to 126 mg/dL suggests DIABETES MELLITUS per A.D.A. criteria. Neutrophils (Bld) [#/Vol] 6.3 10*3/uL 2.0-7.7 [facility] Neutrophils/100 WBC (Bld) 67.0 % 47-70 [facility] Potassium [Moles/Vol] 4.1 mmol/L 3.5-5.1 [facility] Sodium [Moles/Vol] 139 mmol/L 136-145 [facility] WBC (Bld) [#/Vol] 9.4 10*3/uL 4.4-11.0 [facility] Blood erythrocytes count (nu mber/volume)Ordered By: Alfredo Phipps on 09-16-2023 RBC (Bld) [#/Vol] 4.63 10*6/uL 4.6-6.2 [facility] Blood hemoglobin measurement (mass/volume)Ordered By: Alfredo Phipps on 09-16-2023 Hemoglobin (Bld) [Mass/Vol] 13.4 g/dL 13.0-16.5 [facility] Blood lymphocytes/100 leukoc ytesOrdered By: Alfredo Phipps on 09-16-2023 Lymphocytes/100 WBC (Bld) 19.0 % 19-41 [facility] Blood monocytes/100 leukocyt esOrdered By: Alfredo Phipps on 09-16-2023 Monocytes/100 WBC (Bld) 8.3 % 0-10 [facility] Blood platelet mean volumeOr dered By: Alfredo Phipps on 09-16-2023 Platelet mean volume (Bld) [Entitic vol] 9.6 fL 6.2-12.0 [facility] Determination of erythrocyte mean corpuscular volume (MCV)Ordered By: Alfredo Phipps on 09-16-2023 MCV (RBC) [Entitic vol] 90.5 fL 80-94 [facility] Hematocrit Auto (Bld) [Volum e fraction]Ordered By: Alfredo Phipps on 09-16-2023 Hematocrit (Bld) [Volume fraction] 41.9 % 40-54 [facility] Laboratory - Chemistry and C hemistry - challengeOrdered By: Alfredo Phipps on 09-16-2023 CO2 [Moles/Vol] 23.0 mmol/L 21.0-32.0 [facility] Urea nitrogen/Creatinine [Mass ratio] 11.6 mg/mg 10-20 [facility] Laboratory - Hematology and Cell countsOrdered By: Alfredo Phipps on 09-16-2023 Erythrocyte distribution width (RBC) [Entitic vol] 46.1 fL 35.1-43.9 [facility] Erythrocyte distribution width (RBC) [Ratio] 13.9 % 11.6-14.6 [facility] Immature granulocytes/100 WBC (Bld) 0.300 % 0.0-0.9 [facility] Comment on above: IG% - Immature Granu locytes (promyelocytes, myelocytes and metamyelocytes) > 1% indicates that a LEFT SHIFT is Present. MCH (RBC) [Entitic mass] 28.9 pg 27.0-32.0 [facility] Nucleated RBC/100 WBC (Bld) [Ratio] 0 % 0-5 [facility] Auto (RBC) [Mass/Vol]Or dered By: Alfredo Phipps on 09-16-2023 MCHC (RBC) [Mass/Vol] 32.0 g/dL 32-36 [facility] No Panel InformationOrdered By: Alfredo Phipps on 09-16-2023 Estimated GFR (MDRD) Amer 45 mL/min >60 [facility] Comment on above: GFR Calc Estimated GFR (MDRD) Non-Af Amer 37 mL/min >60 [facility] Comment on above: Non- GFR Calc [place] Level 0.60 mmol/L 0.60-1.20 [facility] Platelets bldOrdered By: Jennifer Phipps on 09-16-2023 Platelets (Bld) [#/Vol] 212 10*3/uL 150-450 [facility] Serum or plasma albumin you urement (mass/volume)Ordered By: Alfredo Phipps on 09-16-2023 Albumin [Mass/Vol] 2.9 g/dL 3.2-5.0 [facility] Serum or plasma calcium you urement (mass/volume)Ordered By: Alfredo Phipps on 09-16-2023 Calcium [Mass/Vol] 9.0 mg/dL 8.5-10.1 [facility] Serum or plasma creatinine m easurement (mass/volume)Ordered By: Alfredo Phipps on 09-16-2023 Creatinine [Mass/Vol] 1.98 mg/dL 0.70-1.30 [facility] Comment on above: The validity of the calculated GFR & GFRAA in patients over 70 years has not been determined. Clinical correlation is essential. Serum or plasma urea nitroge n measurement (mass/volume)Ordered By: Alfredo Phipps on 09-16-2023 Urea nitrogen [Mass/Vol] 23 mg/dL 7-18 [facility] Urine creatinine measurement (mass/volume)Ordered By: Alfredo Phipps on 09-16-2023 Creatinine (U) [Mass/Vol] 44.20 mg/dL NO RANGE EST. [facility] Urine protein measurement (m ass/volume)Ordered By: Alfredo Phipps on 09-16-2023 Protein (U) [Mass/Vol] mg/dL 0.0-11.8 [place] Urine protein/creatinine mas s ratioOrdered By: Alfredo Phipps on 09-16-2023 Protein/Creatinine (U) [Mass ratio] 131 mg/g CRE 0-200 [facility] Urine creatinine measurement (mass/volume)Ordered By: Adam Ferraro on 08-22-2023 Creatinine (U) [Mass/Vol] 105.00 mg/dL NO RANGE EST. [facility] Urine protein measurement (m ass/volume)Ordered By: Adam Ferraro on 08-22-2023 Protein (U) [Mass/Vol] 19.3 mg/dL 0.0-11.8 [place] Urine protein/creatinine mas s ratioOrdered By: Adam Ferraro on 08-22-2023 Protein/Creatinine (U) [Mass ratio] 184 mg/g CRE 0-200 [facility] Absolute lymphocyte countOrd ered By: Adam Ferraro on 08-19-2023 Lymphocytes Auto (Unsp spec) [#/Vol] 2.02 10*3/uL 0.83-4.51 [facility] Basophil percentageOrdered B y: Adam Ferraro on 08-19-2023 Basophil percentage 4.0 mg/dL 2.5-4.9 [facility] Basophils/100 WBC (Bld) 0.7 % 0-1 [facility] Chloride [Moles/Vol] 108 mmol/L 98-107 [facility] Eosinophils/100 WBC (Bld) 4.4 % 0-5 [facility] Glucose [Mass/Vol] 161 mg/dL 74-106 [facility] Comment on above: Fasting Glucose resu lt greater than or equal to 126 mg/dL suggests DIABETES MELLITUS per A.D.A. criteria. Neutrophils (Bld) [#/Vol] 7.4 10*3/uL 2.0-7.7 [facility] Neutrophils/100 WBC (Bld) 66.8 % 47-70 [facility] Potassium [Moles/Vol] 3.9 mmol/L 3.5-5.1 [facility] Sodium [Moles/Vol] 140 mmol/L 136-145 [facility] WBC (Bld) [#/Vol] 11.1 10*3/uL 4.4-11.0 [facility] Blood erythrocytes count (nu mber/volume)Ordered By: Adam Ferraro on 08-19-2023 RBC (Bld) [#/Vol] 4.67 10*6/uL 4.6-6.2 [facility] Blood hemoglobin measurement (mass/volume)Ordered By: Adam Ferraro on 08-19-2023 Hemoglobin (Bld) [Mass/Vol] 13.5 g/dL 13.0-16.5 [facility] Blood lymphocytes/100 leukoc ytesOrdered By: Adma Ferraro on 08-19-2023 Lymphocytes/100 WBC (Bld) 18.3 % 19-41 [facility] Blood monocytes/100 leukocyt esOrdered By: Adam Ferraro on 08-19-2023 Monocytes/100 WBC (Bld) 9.1 % 0-10 [facility] Blood platelet mean volumeOr dered By: Adam Ferraro on 08-19-2023 Platelet mean volume (Bld) [Entitic vol] 9.4 fL 6.2-12.0 [facility] Determination of erythrocyte mean corpuscular volume (MCV)Ordered By: Adam Ferraro on 08-19-2023 MCV (RBC) [Entitic vol] 90.1 fL 80-94 [facility] Hematocrit Auto (Bld) [Volum e fraction]Ordered By: Adam Ferraro on 08-19-2023 Hematocrit (Bld) [Volume fraction] 42.1 % 40-54 [facility] Laboratory - Chemistry and C hemistry - challengeOrdered By: Adam Ferraro on 08-19-2023 CO2 [Moles/Vol] 26.0 mmol/L 21.0-32.0 [facility] Urea nitrogen/Creatinine [Mass ratio] 10.9 mg/mg 10-20 [facility] - Hematology and Cell countsOrdered By: Adam Ferraro on 08-19-2023 Erythrocyte distribution width (RBC) [Entitic vol] 45.8 fL 35.1-43.9 [facility] Erythrocyte distribution width (RBC) [Ratio] 13.8 % 11.6-14.6 [facility] Immature granulocytes/100 WBC (Bld) 0.700 % 0.0-0.9 [facility] Comment on above: IG% - Immature Granu locytes (promyelocytes, myelocytes and metamyelocytes) > 1% indicates that a LEFT SHIFT is Present. MCH (RBC) [Entitic mass] 28.9 pg 27.0-32.0 [facility] Nucleated RBC/100 WBC (Bld) [Ratio] 0 % 0-5 [facility] MCHC Auto (RBC) [Mass/Vol]Or dered By: Adam Ferraro on 08-19-2023 MCHC (RBC) [Mass/Vol] 32.1 g/dL 32-36 [facility] No Panel InformationOrdered By: Adam Ferraro on 08-19-2023 Estimated GFR (MDRD) Amer 44 mL/min >60 [facility] Comment on above: GFR Calc Estimated GFR (MDRD) Non-Af Amer 36 mL/min >60 [facility] Comment on above: Non- GFR Calc [place] Level 0.50 mmol/L 0.60-1.20 [facility] Platelets bldOrdered By: Benoit Ferraro on 08-19-2023 Platelets (Bld) [#/Vol] 218 10*3/uL 150-450 [facility] Serum or plasma albumin you urement (mass/volume)Ordered By: Adam Ferraro on 08-19-2023 Albumin [Mass/Vol] 2.9 g/dL 3.2-5.0 [facility] Serum or plasma calcium you urement (mass/volume)Ordered By: Adam Ferraro on 08-19-2023 Calcium [Mass/Vol] 9.0 mg/dL 8.5-10.1 [facility] Serum or plasma creatinine m easurement (mass/volume)Ordered By: Adam Ferraro on 08-19-2023 Creatinine [Mass/Vol] 2.01 mg/dL 0.70-1.30 [facility] Comment on above: The validity of the calculated GFR & GFRAA in patients over 70 years has not been determined. Clinical correlation is essential. Serum or plasma urea nitroge n measurement (mass/volume)Ordered By: Adam Ferraro on 08-19-2023 Urea nitrogen [Mass/Vol] 22 mg/dL 7-18 [facility] Whole blood hemoglobin A1c/t otal hemoglobin ratio (mass fraction)Ordered By: Adam Ferraro on 08-19-2023 HbA1c (Bld) [Mass fraction] 7.2 % 3.8-5.6 [facility] Comment on above: Normal < 5.7 % Predi abetic 5.7 - 6.4 % Diabetic >or= 6.5 % Please note range changes. Basophil percentageOrdered B y: Adam Ferraro on 07-28-2023 Cholesterol [Mass/Vol] 124 mg/dL <200 [place] Comment on above: <200 mg/dL Desirable 200-240 mg/dL Borderline >240 mg/dL High Risk Triglyceride [Mass/Vol] 234 mg/dL <199 [facility] Comment on above: The drugs N-Acetylcy steine and Metamizole may falsely depress this assay.Serum Triglycerides Reference Interval Normal <150 mg/dL Borderline high 150 - 199 mg/dL High 200 - 499 mg/dL Very High > or = 500 mg/dL Serum or plasma cholesterol in HDL measurement (mass/volume)Ordered By: Adam Ferraro on 07-28-2023 Cholesterol in HDL [Mass/Vol] 36 mg/dL >40 [facility] Comment on above: The drugs N-Acetylcy steine and Metamizole may falsely depress this assay. Reference Range HDL <40 mg/dL Low HDL Cholesterol HDL >or= 60 mg/dL High HDL Cholesterol Serum or plasma cholesterol in VLDL measurement (mass/volume)Ordered By: Adam Ferraro on 07-28-2023 Cholesterol in VLDL [Mass/Vol] 47 mg/dL 5-40 [facility] Serum or plasma low density lipoprotein (LDL) cholesterol measurement (mass/volume)Ordered By: Adam Ferraro on 07-28-2023 Cholesterol in LDL [Mass/Vol] 41 mg/dL 0-130 [facility] Serum or plasma uric acid me asurement (mass/volume)Ordered By: Adam Ferraro on 07-28-2023 Urate [Mass/Vol] 6.6 mg/dL 3.5-7.2 [facility] Comment on above: The drugs N-Acetylcy steine and Metamizole may falsely depress this assay. Urine creatinine measurement (mass/volume)Ordered By: Adam Ferraro on 07-24-2023 Creatinine (U) [Mass/Vol] 113.00 mg/dL NO RANGE EST. [facility] Urine protein measurement (m ass/volume)Ordered By: Adam Ferraro on 07-24-2023 Protein (U) [Mass/Vol] 15.1 mg/dL 0.0-11.8 [place] Urine protein/creatinine mas s ratioOrdered By: Adam Ferraro on 07-24-2023 Protein/Creatinine (U) [Mass ratio] 134 mg/g CRE 0-200 [facility] Absolute lymphocyte countOrd ered By: Alfredo Phipps on 07-22-2023 Lymphocytes Auto (Unsp spec) [#/Vol] 1.60 10*3/uL 0.83-4.51 [facility] Basophil percentageOrdered B y: Alfredo Phipps on 07-22-2023 Basophil percentage 4.2 mg/dL 2.5-4.9 [facility] Basophils/100 WBC (Bld) 1.1 % 0-1 [facility] Chloride [Moles/Vol] 108 mmol/L 98-107 [facility] Eosinophils/100 WBC (Bld) 2.7 % 0-5 [facility] Glucose [Mass/Vol] 138 mg/dL 74-106 [facility] Comment on above: Fasting Glucose resu lt greater than or equal to 126 mg/dL suggests DIABETES MELLITUS per A.D.A. criteria. Neutrophils (Bld) [#/Vol] 6.9 10*3/uL 2.0-7.7 [facility] Neutrophils/100 WBC (Bld) 69.3 % 47-70 [facility] Potassium [Moles/Vol] 3.8 mmol/L 3.5-5.1 [facility] Sodium [Moles/Vol] 135 mmol/L 136-145 [facility] WBC (Bld) [#/Vol] 9.9 10*3/uL 4.4-11.0 [facility] Blood erythrocytes count (nu mber/volume)Ordered By: Alfredo Phipps on 07-22-2023 RBC (Bld) [#/Vol] 4.79 10*6/uL 4.6-6.2 [facility] Blood hemoglobin measurement (mass/volume)Ordered By: Alfredo Phipps on 07-22-2023 Hemoglobin (Bld) [Mass/Vol] 13.6 g/dL 13.0-16.5 [facility] Blood lymphocytes/100 leukoc ytesOrdered By: Alfredo Phipps on 07-22-2023 Lymphocytes/100 WBC (Bld) 16.1 % 19-41 [facility] Blood monocytes/100 leukocyt esOrdered By: Alfredo Phipps on 07-22-2023 Monocytes/100 WBC (Bld) 10.2 % 0-10 [facility] Blood platelet mean volumeOr dered By: Alfredo Phipps on 07-22-2023 Platelet mean volume (Bld) [Entitic vol] 10.8 fL 6.2-12.0 [facility] Determination of erythrocyte mean corpuscular volume (MCV)Ordered By: Alfredo Phipps on 07-22-2023 MCV (RBC) [Entitic vol] 98.1 fL 80-94 [facility] Hematocrit Auto (Bld) [Volum e fraction]Ordered By: Alfredo Phipps on 07-22-2023 Hematocrit (Bld) [Volume fraction] 47.0 % 40-54 [facility] - Chemistry and C hemistry - challengeOrdered By: Alfredo Phipps on 07-22-2023 CO2 [Moles/Vol] 19.0 mmol/L 21.0-32.0 [facility] Urea nitrogen/Creatinine [Mass ratio] 10.7 mg/mg 10-20 [facility] - Hematology and Cell countsOrdered By: Alfredo Phipps on 07-22-2023 Erythrocyte distribution width (RBC) [Entitic vol] 58.0 fL 35.1-43.9 [facility] Erythrocyte distribution width (RBC) [Ratio] 16.4 % 11.6-14.6 [facility] Immature granulocytes/100 WBC (Bld) 0.600 % 0.0-0.9 [facility] Comment on above: IG% - Immature Granu locytes (promyelocytes, myelocytes and metamyelocytes) > 1% indicates that a LEFT SHIFT is Present. MCH (RBC) [Entitic mass] 28.4 pg 27.0-32.0 [facility] Nucleated RBC/100 WBC (Bld) [Ratio] 0 % 0-5 [facility] MCHC Auto (RBC) [Mass/Vol]Or dered By: Alfredo Phipps on 07-22-2023 MCHC (RBC) [Mass/Vol] 28.9 g/dL 32-36 [facility] No Panel InformationOrdered By: Alfredo Phipps on 07-22-2023 Estimated GFR (MDRD) Amer 45 mL/min >60 [facility] Comment on above: GFR Calc Estimated GFR (MDRD) Non-Af Amer 37 mL/min >60 [facility] Comment on above: Non- GFR Calc [place] Level 0.60 mmol/L 0.60-1.20 [facility] Platelets bldOrdered By: Pet er Desire on 07-22-2023 Platelets (Bld) [#/Vol] 209 10*3/uL 150-450 [facility] Serum or plasma albumin you urement (mass/volume)Ordered By: Alfredo Phipps on 07-22-2023 Albumin [Mass/Vol] 2.6 g/dL 3.2-5.0 [facility] Serum or plasma calcium you urement (mass/volume)Ordered By: Alfredo Phipps on 07-22-2023 Calcium [Mass/Vol] 9.1 mg/dL 8.5-10.1 [facility] Serum or plasma creatinine m easurement (mass/volume)Ordered By: Alfredo Phipps on 07-22-2023 Creatinine [Mass/Vol] 1.97 mg/dL 0.70-1.30 [facility] Comment on above: The validity of the calculated GFR & GFRAA in patients over 70 years has not been determined. Clinical correlation is essential. Serum or plasma urea nitroge n measurement (mass/volume)Ordered By: Alfredo Phipps on 07-22-2023 Urea nitrogen [Mass/Vol] 21 mg/dL 7-18 [facility] Absolute lymphocyte countOrd ered By: Alfredo Phipps on 06-24-2023 Lymphocytes Auto (Unsp spec) [#/Vol] 2.04 10*3/uL 0.83-4.51 [facility] Basophil percentageOrdered B y: Alfredo Phipps on 06-24-2023 Basophil percentage 4.4 mg/dL 2.5-4.9 [facility] Basophils/100 WBC (Bld) 1.2 % 0-1 [facility] Chloride [Moles/Vol] 107 mmol/L 98-107 [facility] Eosinophils/100 WBC (Bld) 5.2 % 0-5 [facility] Glucose [Mass/Vol] 144 mg/dL 74-106 [facility] Comment on above: Fasting Glucose resu lt greater than or equal to 126 mg/dL suggests DIABETES MELLITUS per A.D.A. criteria. Neutrophils (Bld) [#/Vol] 5.9 10*3/uL 2.0-7.7 [facility] Neutrophils/100 WBC (Bld) 62.3 % 47-70 [facility] Potassium [Moles/Vol] 3.7 mmol/L 3.5-5.1 [facility] Sodium [Moles/Vol] 138 mmol/L 136-145 [facility] WBC (Bld) [#/Vol] 9.4 10*3/uL 4.4-11.0 [facility] Blood erythrocytes count (nu mber/volume)Ordered By: Alfredo Phipps on 06-24-2023 RBC (Bld) [#/Vol] 4.95 10*6/uL 4.6-6.2 [facility] Blood hemoglobin measurement (mass/volume)Ordered By: Alfredo Phipps on 06-24-2023 Hemoglobin (Bld) [Mass/Vol] 14.2 g/dL 13.0-16.5 [facility] Blood lymphocytes/100 leukoc ytesOrdered By: Alfredo Phipps on 06-24-2023 Lymphocytes/100 WBC (Bld) 21.7 % 19-41 [facility] Blood monocytes/100 leukocyt esOrdered By: Alfredo Phipps on 06-24-2023 Monocytes/100 WBC (Bld) 9.1 % 0-10 [facility] Blood platelet mean volumeOr dered By: Alfredo Phipps on 06-24-2023 Platelet mean volume (Bld) [Entitic vol] 9.8 fL 6.2-12.0 [facility] Determination of erythrocyte mean corpuscular volume (MCV)Ordered By: Alfredo Phipps on 06-24-2023 MCV (RBC) [Entitic vol] 88.5 fL 80-94 [facility] Hematocrit Auto (Bld) [Volum e fraction]Ordered By: Alfredo Phipps on 06-24-2023 Hematocrit (Bld) [Volume fraction] 43.8 % 40-54 [facility] - Chemistry and C hemistry - challengeOrdered By: Alfredo Phipps on 06-24-2023 CO2 [Moles/Vol] 25.0 mmol/L 21.0-32.0 [facility] Urea nitrogen/Creatinine [Mass ratio] 11.5 mg/mg 10-20 [facility] - Hematology and Cell countsOrdered By: Alfredo Phipps on 06-24-2023 Erythrocyte distribution width (RBC) [Entitic vol] 42.3 fL 35.1-43.9 [facility] Erythrocyte distribution width (RBC) [Ratio] 13.1 % 11.6-14.6 [facility] Immature granulocytes/100 WBC (Bld) 0.500 % 0.0-0.9 [facility] Comment on above: IG% - Immature Granu locytes (promyelocytes, myelocytes and metamyelocytes) > 1% indicates that a LEFT SHIFT is Present. MCH (RBC) [Entitic mass] 28.7 pg 27.0-32.0 [facility] Nucleated RBC/100 WBC (Bld) [Ratio] 0 % 0-5 [facility] MCHC Auto (RBC) [Mass/Vol]Or dered By: Alfredo Phipps on 06-24-2023 MCHC (RBC) [Mass/Vol] 32.4 g/dL 32-36 [facility] No Panel InformationOrdered By: Alfredo Phipps on 06-24-2023 Estimated GFR (MDRD) Amer 49 mL/min >60 [facility] Comment on above: GFR Calc Estimated GFR (MDRD) Non-Af Amer 40 mL/min >60 [facility] Comment on above: Non- GFR Calc [place] Level 0.60 mmol/L 0.60-1.20 [facility] Platelets bldOrdered By: Jennifer Phipps on 06-24-2023 Platelets (Bld) [#/Vol] 213 10*3/uL 150-450 [facility] Serum or plasma albumin you urement (mass/volume)Ordered By: Alfredo Phipps on 06-24-2023 Albumin [Mass/Vol] 2.9 g/dL 3.2-5.0 [facility] Serum or plasma calcium you urement (mass/volume)Ordered By: Alfredo Phipps on 06-24-2023 Calcium [Mass/Vol] 9.1 mg/dL 8.5-10.1 [facility] Serum or plasma creatinine m easurement (mass/volume)Ordered By: Alfredo Phipps on 06-24-2023 Creatinine [Mass/Vol] 1.83 mg/dL 0.70-1.30 [facility] Comment on above: The validity of the calculated GFR & GFRAA in patients over 70 years has not been determined. Clinical correlation is essential. Serum or plasma urea nitroge n measurement (mass/volume)Ordered By: Alfredo Phipps on 06-24-2023 Urea nitrogen [Mass/Vol] 21 mg/dL 7-18 [facility] Serum or plasma uric acid me asurement (mass/volume)Ordered By: Alfredo Phipps on 06-24-2023 Urate [Mass/Vol] 6.5 mg/dL 3.5-7.2 [facility] Comment on above: The drugs N-Acetylcy steine and Metamizole may falsely depress this assay. Urine creatinine measurement (mass/volume)Ordered By: Alfredo Phipps on 06-24-2023 Creatinine (U) [Mass/Vol] 127.00 mg/dL NO RANGE EST. [facility] Urine protein measurement (m ass/volume)Ordered By: Alfredo Phipps on 06-24-2023 Protein (U) [Mass/Vol] 19.9 mg/dL 0.0-11.8 [place] Urine protein/creatinine mas s ratioOrdered By: Alfredo Phipps on 06-24-2023 Protein/Creatinine (U) [Mass ratio] 157 mg/g CRE 0-200 [facility] Urine creatinine measurement (mass/volume)Ordered By: Adam Ferraro on 05-30-2023 Creatinine (U) [Mass/Vol] 73.90 mg/dL NO RANGE EST. [facility] Urine protein measurement (m ass/volume)Ordered By: Adam Ferraro on 05-30-2023 Protein (U) [Mass/Vol] 18.0 mg/dL 0.0-11.8 [place] Urine protein/creatinine mas s ratioOrdered By: Adam Ferraro on 05-30-2023 Protein/Creatinine (U) [Mass ratio] 244 mg/g CRE 0-200 [facility] Absolute lymphocyte countOrd ered By: Adam Ferraro on 05-27-2023 Lymphocytes Auto (Unsp spec) [#/Vol] 1.85 10*3/uL 0.83-4.51 [facility] Basophil percentageOrdered B y: Adam Ferraro on 05-27-2023 Basophil percentage 3.9 mg/dL 2.5-4.9 [facility] Basophils/100 WBC (Bld) 1.1 % 0-1 [facility] Chloride [Moles/Vol] 106 mmol/L 98-107 [facility] Eosinophils/100 WBC (Bld) 3.3 % 0-5 [facility] Glucose [Mass/Vol] 208 mg/dL 74-106 [facility] Comment on above: Glucose result great er than or equal to 200 mg/dLsuggests DIABETES MELLITUS per A.D.A. criteria. Neutrophils (Bld) [#/Vol] 5.6 10*3/uL 2.0-7.7 [facility] Neutrophils/100 WBC (Bld) 64.5 % 47-70 [facility] Potassium [Moles/Vol] 3.7 mmol/L 3.5-5.1 [facility] Sodium [Moles/Vol] 138 mmol/L 136-145 [facility] WBC (Bld) [#/Vol] 8.7 10*3/uL 4.4-11.0 [facility] Blood erythrocytes count (nu mber/volume)Ordered By: Adam Ferraro on 05-27-2023 RBC (Bld) [#/Vol] 4.98 10*6/uL 4.6-6.2 [facility] Blood hemoglobin measurement (mass/volume)Ordered By: Adam Ferraro on 05-27-2023 Hemoglobin (Bld) [Mass/Vol] 14.4 g/dL 13.0-16.5 [facility] Blood lymphocytes/100 leukoc ytesOrdered By: Adam Ferraro on 05-27-2023 Lymphocytes/100 WBC (Bld) 21.2 % 19-41 [facility] Blood monocytes/100 leukocyt esOrdered By: Adam Ferraro on 05-27-2023 Monocytes/100 WBC (Bld) 9.3 % 0-10 [facility] Blood platelet mean volumeOr dered By: Adam Ferraro on 05-27-2023 Platelet mean volume (Bld) [Entitic vol] 10.0 fL 6.2-12.0 [facility] Determination of erythrocyte mean corpuscular volume (MCV)Ordered By: Adam Ferraro on 05-27-2023 MCV (RBC) [Entitic vol] 89.6 fL 80-94 [facility] Hematocrit Auto (Bld) [Volum e fraction]Ordered By: Adam Ferraro on 05-27-2023 Hematocrit (Bld) [Volume fraction] 44.6 % 40-54 [facility] - Chemistry and C hemistry - challengeOrdered By: Adam Ferraro on 05-27-2023 CO2 [Moles/Vol] 27.0 mmol/L 21.0-32.0 [facility] Urea nitrogen/Creatinine [Mass ratio] 11.5 mg/mg 10-20 [facility] - Hematology and Cell countsOrdered By: Adam Ferraro on 05-27-2023 Erythrocyte distribution width (RBC) [Entitic vol] 42.2 fL 35.1-43.9 [facility] Erythrocyte distribution width (RBC) [Ratio] 13.0 % 11.6-14.6 [facility] Immature granulocytes/100 WBC (Bld) 0.600 % 0.0-0.9 [facility] Comment on above: IG% - Immature Granu locytes (promyelocytes, myelocytes and metamyelocytes) > 1% indicates that a LEFT SHIFT is Present. MCH (RBC) [Entitic mass] 28.9 pg 27.0-32.0 [facility] Nucleated RBC/100 WBC (Bld) [Ratio] 0 % 0-5 [facility] MCHC Auto (RBC) [Mass/Vol]Or dered By: Adam Ferraro on 05-27-2023 MCHC (RBC) [Mass/Vol] 32.3 g/dL 32-36 [facility] No Panel InformationOrdered By: Adam Ferraro on 05-27-2023 Estimated GFR (MDRD) Amer 52 mL/min >60 [facility] Comment on above: GFR Calc Estimated GFR (MDRD) Non-Af Amer 43 mL/min >60 [facility] Comment on above: Non- GFR Calc [place] Level 0.40 mmol/L 0.60-1.20 [facility] Platelets bldOrdered By: Benoit Ferraro on 05-27-2023 Platelets (Bld) [#/Vol] 211 10*3/uL 150-450 [facility] Serum or plasma albumin you urement (mass/volume)Ordered By: Adam Ferraro on 05-27-2023 Albumin [Mass/Vol] 2.9 g/dL 3.2-5.0 [facility] Serum or plasma calcium you urement (mass/volume)Ordered By: Adam Ferraro on 05-27-2023 Calcium [Mass/Vol] 9.2 mg/dL 8.5-10.1 [facility] Serum or plasma creatinine m easurement (mass/volume)Ordered By: Adam Ferraro on 05-27-2023 Creatinine [Mass/Vol] 1.74 mg/dL 0.70-1.30 [facility] Comment on above: The validity of the calculated GFR & GFRAA in patients over 70 years has not been determined. Clinical correlation is essential. Serum or plasma urea nitroge n measurement (mass/volume)Ordered By: Adam Ferraro on 05-27-2023 Urea nitrogen [Mass/Vol] 20 mg/dL 7-18 [facility] Serum or plasma uric acid me asurement (mass/volume)Ordered By: Adam Ferraro on 05-27-2023 Urate [Mass/Vol] 4.9 mg/dL 3.5-7.2 [facility] Comment on above: The drugs N-Acetylcy steine and Metamizole may falsely depress this assay. Whole blood hemoglobin A1c/t otal hemoglobin ratio (mass fraction)Ordered By: Adam Ferraro on 05-19-2023 HbA1c (Bld) [Mass fraction] 11.1 % 3.8-5.6 [facility] Comment on above: Normal < 5.7 % Predi abetic 5.7 - 6.4 % Diabetic >or= 6.5 % Please note range changes. Absolute lymphocyte countOrd ered By: Alfredo Phipps on 06-16-2023 Lymphocytes Auto (Unsp spec) [#/Vol] 1.98 10*3/uL 0.83-4.51 [facility] Basophil percentageOrdered B y: Alfredo Phipps on 04-29-2023 Basophil percentage 3.6 mg/dL 2.5-4.9 [facility] Basophils/100 WBC (Bld) 1.0 % 0-1 [facility] Chloride [Moles/Vol] 105 mmol/L 98-107 [facility] Eosinophils/100 WBC (Bld) 2.7 % 0-5 [facility] Glucose [Mass/Vol] 300 mg/dL 74-106 [facility] Comment on above: Glucose result great er than or equal to 200 mg/dLsuggests DIABETES MELLITUS per A.D.A. criteria. Neutrophils (Bld) [#/Vol] 5.7 10*3/uL 2.0-7.7 [facility] Neutrophils/100 WBC (Bld) 64.2 % 47-70 [facility] Potassium [Moles/Vol] 3.9 mmol/L 3.5-5.1 [facility] Sodium [Moles/Vol] 138 mmol/L 136-145 [facility] WBC (Bld) [#/Vol] 8.9 10*3/uL 4.4-11.0 [facility] Blood erythrocytes count (nu mber/volume)Ordered By: Alfredo Phipps on 04-29-2023 RBC (Bld) [#/Vol] 4.74 10*6/uL 4.6-6.2 [facility] Blood hemoglobin measurement (mass/volume)Ordered By: Alfredo Phipps on 04-29-2023 Hemoglobin (Bld) [Mass/Vol] 13.6 g/dL 13.0-16.5 [facility] Blood lymphocytes/100 leukoc ytesOrdered By: Alfredo Phipps on 04-29-2023 Lymphocytes/100 WBC (Bld) 22.2 % 19-41 [facility] Blood monocytes/100 leukocyt esOrdered By: Alfredo Phipps on 04-29-2023 Monocytes/100 WBC (Bld) 9.2 % 0-10 [facility] Blood platelet mean volumeOr dered By: Alfredo Phipps on 04-29-2023 Platelet mean volume (Bld) [Entitic vol] 9.7 fL 6.2-12.0 [facility] Determination of erythrocyte mean corpuscular volume (MCV)Ordered By: Alfredo Phipps on 04-29-2023 MCV (RBC) [Entitic vol] 87.8 fL 80-94 [facility] Hematocrit Auto (Bld) [Volum e fraction]Ordered By: Alfredo Phipps on 04-29-2023 Hematocrit (Bld) [Volume fraction] 41.6 % 40-54 [facility] - Chemistry and C hemistry - challengeOrdered By: Alfredo Phipps on 04-29-2023 CO2 [Moles/Vol] 24.0 mmol/L 21.0-32.0 [facility] Urea nitrogen/Creatinine [Mass ratio] 13.7 mg/mg 10-20 [facility] - Hematology and Cell countsOrdered By: Alfredo Phipps on 04-29-2023 Erythrocyte distribution width (RBC) [Entitic vol] 41.7 fL 35.1-43.9 [facility] Erythrocyte distribution width (RBC) [Ratio] 12.9 % 11.6-14.6 [facility] Immature granulocytes/100 WBC (Bld) 0.700 % 0.0-0.9 [facility] Comment on above: IG% - Immature Granu locytes (promyelocytes, myelocytes and metamyelocytes) > 1% indicates that a LEFT SHIFT is Present. MCH (RBC) [Entitic mass] 28.7 pg 27.0-32.0 [facility] Nucleated RBC/100 WBC (Bld) [Ratio] 0 % 0-5 [facility] MCHC Auto (RBC) [Mass/Vol]Or dered By: Alfredo Phipps on 04-29-2023 MCHC (RBC) [Mass/Vol] 32.7 g/dL 32-36 [facility] No Panel InformationOrdered By: Alfredo Phipps on 04-29-2023 Estimated GFR (MDRD) Amer 51 mL/min >60 [facility] Comment on above: GFR Calc Estimated GFR (MDRD) Non-Af Amer 43 mL/min >60 [facility] Comment on above: Non- GFR Calc [place] Level 0.40 mmol/L 0.60-1.20 [facility] Platelets bldOrdered By: Jennifer shonda Desire on 04-29-2023 Platelets (Bld) [#/Vol] 204 10*3/uL 150-450 [facility] Serum or plasma albumin you urement (mass/volume)Ordered By: Alfredo Phipps on 04-29-2023 Albumin [Mass/Vol] 2.7 g/dL 3.2-5.0 [facility] Serum or plasma calcium you urement (mass/volume)Ordered By: Alfredo Phipps on 04-29-2023 Calcium [Mass/Vol] 8.9 mg/dL 8.5-10.1 [facility] Serum or plasma creatinine m easurement (mass/volume)Ordered By: Alfredo Phipps on 04-29-2023 Creatinine [Mass/Vol] 1.75 mg/dL 0.70-1.30 [facility] Comment on above: The validity of the calculated GFR & GFRAA in patients over 70 years has not been determined. Clinical correlation is essential. Serum or plasma urea nitroge n measurement (mass/volume)Ordered By: Alfredo Phipps on 04-29-2023 Urea nitrogen [Mass/Vol] 24 mg/dL 7-18 [facility] Serum or plasma uric acid me asurement (mass/volume)Ordered By: Alfredo Phipps on 04-27-2023 Urate [Mass/Vol] 4.8 mg/dL 3.5-7.2 [facility] Comment on above: The drugs N-Acetylcy steine and Metamizole may falsely depress this assay. Urine creatinine measurement (mass/volume)Ordered By: Adam Ferraro on 04-04-2023 Creatinine (U) [Mass/Vol] 96.50 mg/dL NO RANGE EST. [facility] Urine protein measurement (m ass/volume)Ordered By: Adam Ferraro on 04-04-2023 Protein (U) [Mass/Vol] 26.4 mg/dL 0.0-11.8 [place] Urine protein/creatinine mas s ratioOrdered By: Adam Ferraro on 04-04-2023 Protein/Creatinine (U) [Mass ratio] 274 mg/g CRE 0-200 [facility] Absolute lymphocyte countOrd ered By: Adam Ferraro on 04-01-2023 Lymphocytes Auto (Unsp spec) [#/Vol] 1.91 10*3/uL 0.83-4.51 [facility] Basophil percentageOrdered B y: Adam Ferraro on 04-01-2023 Basophil percentage 3.3 mg/dL 2.5-4.9 [facility] Basophils/100 WBC (Bld) 1.1 % 0-1 [facility] Chloride [Moles/Vol] 105 mmol/L 98-107 [facility] Eosinophils/100 WBC (Bld) 2.7 % 0-5 [facility] Glucose [Mass/Vol] 317 mg/dL 74-106 [facility] Comment on above: Glucose result great er than or equal to 200 mg/dLsuggests DIABETES MELLITUS per A.D.A. criteria. Neutrophils (Bld) [#/Vol] 5.4 10*3/uL 2.0-7.7 [facility] Neutrophils/100 WBC (Bld) 64.7 % 47-70 [facility] Potassium [Moles/Vol] 3.8 mmol/L 3.5-5.1 [facility] Sodium [Moles/Vol] 137 mmol/L 136-145 [facility] WBC (Bld) [#/Vol] 8.4 10*3/uL 4.4-11.0 [facility] Blood erythrocytes count (nu mber/volume)Ordered By: Adam Ferraro on 04-01-2023 RBC (Bld) [#/Vol] 5.17 10*6/uL 4.6-6.2 [facility] Blood hemoglobin measurement (mass/volume)Ordered By: Adam Ferraro on 04-01-2023 Hemoglobin (Bld) [Mass/Vol] 14.7 g/dL 13.0-16.5 [facility] Blood lymphocytes/100 leukoc ytesOrdered By: Adam Ferraro on 04-01-2023 Lymphocytes/100 WBC (Bld) 22.7 % 19-41 [facility] Blood monocytes/100 leukocyt esOrdered By: Adam Ferraro on 04-01-2023 Monocytes/100 WBC (Bld) 8.2 % 0-10 [facility] Blood platelet mean volumeOr dered By: Adam Ferraro on 04-01-2023 Platelet mean volume (Bld) [Entitic vol] 9.8 fL 6.2-12.0 [facility] Determination of erythrocyte mean corpuscular volume (MCV)Ordered By: Adam Ferraro on 04-01-2023 MCV (RBC) [Entitic vol] 88.6 fL 80-94 [facility] Hematocrit Auto (Bld) [Volum e fraction]Ordered By: Adam Ferraro on 04-01-2023 Hematocrit (Bld) [Volume fraction] 45.8 % 40-54 [facility] - Chemistry and C hemistry - challengeOrdered By: Adam Ferraro on 04-01-2023 CO2 [Moles/Vol] 25.0 mmol/L 21.0-32.0 [facility] Urea nitrogen/Creatinine [Mass ratio] 13.7 mg/mg 10-20 [facility] - Hematology and Cell countsOrdered By: Adam Ferraro on 04-01-2023 Erythrocyte distribution width (RBC) [Entitic vol] 42.5 fL 35.1-43.9 [facility] Erythrocyte distribution width (RBC) [Ratio] 13.1 % 11.6-14.6 [facility] Immature granulocytes/100 WBC (Bld) 0.600 % 0.0-0.9 [facility] Comment on above: IG% - Immature Granu locytes (promyelocytes, myelocytes and metamyelocytes) > 1% indicates that a LEFT SHIFT is Present. MCH (RBC) [Entitic mass] 28.4 pg 27.0-32.0 [facility] Nucleated RBC/100 WBC (Bld) [Ratio] 0 % 0-5 [facility] MCHC Auto (RBC) [Mass/Vol]Or dered By: Adam Ferraro on 04-01-2023 MCHC (RBC) [Mass/Vol] 32.1 g/dL 32-36 [facility] No Panel InformationOrdered By: Adam Ferraro on 04-01-2023 Estimated GFR (MDRD) Amer 49 mL/min >60 [facility] Comment on above: GFR Calc Estimated GFR (MDRD) Non-Af Amer 41 mL/min >60 [facility] Comment on above: Non- GFR Calc [place] Level < 0.20 mmol/L 0.60-1.20 [facility] Platelets bldOrdered By: Benoit ivey Jasmine on 04-01-2023 Platelets (Bld) [#/Vol] 209 10*3/uL 150-450 [facility] Serum or plasma albumin you urement (mass/volume)Ordered By: Adam Ferraro on 04-01-2023 Albumin [Mass/Vol] 3.0 g/dL 3.2-5.0 [facility] Serum or plasma calcium you urement (mass/volume)Ordered By: Adam Ferraro on 04-01-2023 Calcium [Mass/Vol] 8.9 mg/dL 8.5-10.1 [facility] Serum or plasma creatinine m easurement (mass/volume)Ordered By: Adam Ferraro on 04-01-2023 Creatinine [Mass/Vol] 1.82 mg/dL 0.70-1.30 [facility] Comment on above: The validity of the calculated GFR & GFRAA in patients over 70 years has not been determined. Clinical correlation is essential. Serum or plasma urea nitroge n measurement (mass/volume)Ordered By: Adam Ferraro on 04-01-2023 Urea nitrogen [Mass/Vol] 25 mg/dL 7-18 [facility] Absolute lymphocyte countOrd ered By: Alfredo Phipps on 03-04-2023 Lymphocytes Auto (Unsp spec) [#/Vol] 2.18 10*3/uL 0.83-4.51 [facility] Basophil percentageOrdered B y: Alfredo Phipps on 03-04-2023 Basophil percentage 3.9 mg/dL 2.5-4.9 [facility] Basophils/100 WBC (Bld) 0.9 % 0-1 [facility] Chloride [Moles/Vol] 109 mmol/L 98-107 [facility] Eosinophils/100 WBC (Bld) 3.5 % 0-5 [facility] Glucose [Mass/Vol] 179 mg/dL 74-106 [facility] Comment on above: Fasting Glucose resu lt greater than or equal to 126 mg/dL suggests DIABETES MELLITUS per A.D.A. criteria. Neutrophils (Bld) [#/Vol] 6.1 10*3/uL 2.0-7.7 [facility] Neutrophils/100 WBC (Bld) 63.2 % 47-70 [facility] Potassium [Moles/Vol] 3.9 mmol/L 3.5-5.1 [facility] Sodium [Moles/Vol] 138 mmol/L 136-145 [facility] WBC (Bld) [#/Vol] 9.6 10*3/uL 4.4-11.0 [facility] Blood erythrocytes count (nu mber/volume)Ordered By: Alfredo Phipps on 03-04-2023 RBC (Bld) [#/Vol] 4.74 10*6/uL 4.6-6.2 [facility] Blood hemoglobin measurement (mass/volume)Ordered By: Alfredo Phipps on 03-04-2023 Hemoglobin (Bld) [Mass/Vol] 13.6 g/dL 13.0-16.5 [facility] Blood lymphocytes/100 leukoc ytesOrdered By: Alfredo Phipps on 03-04-2023 Lymphocytes/100 WBC (Bld) 22.6 % 19-41 [facility] Blood monocytes/100 leukocyt esOrdered By: Alfredo Phipps on 03-04-2023 Monocytes/100 WBC (Bld) 9.4 % 0-10 [facility] Blood platelet mean volumeOr dered By: Alfredo Phipps on 03-04-2023 Platelet mean volume (Bld) [Entitic vol] 9.7 fL 6.2-12.0 [facility] Determination of erythrocyte mean corpuscular volume (MCV)Ordered By: Alfredo Phipps on 03-04-2023 MCV (RBC) [Entitic vol] 90.3 fL 80-94 [facility] Hematocrit Auto (Bld) [Volum e fraction]Ordered By: Alfredo Phipps on 03-04-2023 Hematocrit (Bld) [Volume fraction] 42.8 % 40-54 [facility] Laboratory - Chemistry and C hemistry - challengeOrdered By: Alfredo Phipps on 03-04-2023 CO2 [Moles/Vol] 26.0 mmol/L 21.0-32.0 [facility] Urea nitrogen/Creatinine [Mass ratio] 13.9 mg/mg 10-20 [facility] - Hematology and Cell countsOrdered By: Alfredo Phipps on 03-04-2023 Erythrocyte distribution width (RBC) [Entitic vol] 42.8 fL 35.1-43.9 [facility] Erythrocyte distribution width (RBC) [Ratio] 12.9 % 11.6-14.6 [facility] Immature granulocytes/100 WBC (Bld) 0.400 % 0.0-0.9 [facility] Comment on above: IG% - Immature Granu locytes (promyelocytes, myelocytes and metamyelocytes) > 1% indicates that a LEFT SHIFT is Present. MCH (RBC) [Entitic mass] 28.7 pg 27.0-32.0 [facility] Nucleated RBC/100 WBC (Bld) [Ratio] 0 % 0-5 [facility] MCHC Auto (RBC) [Mass/Vol]Or dered By: Alfredo Phipps on 03-04-2023 MCHC (RBC) [Mass/Vol] 31.8 g/dL 32-36 [facility] No Panel InformationOrdered By: Alfredo Phipps on 03-04-2023 Estimated GFR (MDRD) Amer 55 mL/min >60 [facility] Comment on above: GFR Calc Estimated GFR (MDRD) Non-Af Amer 46 mL/min >60 [facility] Comment on above: Non- GFR Calc [place] Level 0.40 mmol/L 0.60-1.20 [facility] Platelets bldOrdered By: Jennifer Phipps on 03-04-2023 Platelets (Bld) [#/Vol] 207 10*3/uL 150-450 [facility] Serum or plasma albumin you urement (mass/volume)Ordered By: Alfredo Phipps on 03-04-2023 Albumin [Mass/Vol] 2.8 g/dL 3.2-5.0 [facility] Serum or plasma calcium you urement (mass/volume)Ordered By: Alfredo Phipps on 03-04-2023 Calcium [Mass/Vol] 9.2 mg/dL 8.5-10.1 [facility] Serum or plasma creatinine m easurement (mass/volume)Ordered By: Alfredo Phipps on 03-04-2023 Creatinine [Mass/Vol] 1.65 mg/dL 0.70-1.30 [facility] Comment on above: The validity of the calculated GFR & GFRAA in patients over 70 years has not been determined. Clinical correlation is essential. Serum or plasma urea nitroge n measurement (mass/volume)Ordered By: Alfredo Phipps on 03-04-2023 Urea nitrogen [Mass/Vol] 23 mg/dL 7-18 [facility] Serum or plasma uric acid me asurement (mass/volume)Ordered By: Alfredo Phipps on 02-25-2023 Urate [Mass/Vol] 5.6 mg/dL 3.5-7.2 [facility] Comment on above: The drugs N-Acetylcy steine and Metamizole may falsely depress this assay. Absolute lymphocyte countOrd ered By: Alfredo Phipps on 02-04-2023 Lymphocytes Auto (Unsp spec) [#/Vol] 2.03 10*3/uL 0.83-4.51 [facility] Basophil percentageOrdered B y: Alfredo Phipps on 02-04-2023 Basophil percentage 4.3 mg/dL 2.5-4.9 [facility] Basophils/100 WBC (Bld) 1.2 % 0-1 [facility] Chloride [Moles/Vol] 108 mmol/L 98-107 [facility] Eosinophils/100 WBC (Bld) 3.6 % 0-5 [facility] Glucose [Mass/Vol] 193 mg/dL 74-106 [facility] Comment on above: Fasting Glucose resu lt greater than or equal to 126 mg/dL suggests DIABETES MELLITUS per A.D.A. criteria. Neutrophils (Bld) [#/Vol] 6.1 10*3/uL 2.0-7.7 [facility] Neutrophils/100 WBC (Bld) 63.9 % 47-70 [facility] Potassium [Moles/Vol] 4.0 mmol/L 3.5-5.1 [facility] Sodium [Moles/Vol] 139 mmol/L 136-145 [facility] WBC (Bld) [#/Vol] 9.5 10*3/uL 4.4-11.0 [facility] Blood erythrocytes count (nu mber/volume)Ordered By: Alfredo Phipps on 02-04-2023 RBC (Bld) [#/Vol] 4.81 10*6/uL 4.6-6.2 [facility] Blood hemoglobin measurement (mass/volume)Ordered By: Alfredo Phipps on 02-04-2023 Hemoglobin (Bld) [Mass/Vol] 13.9 g/dL 13.0-16.5 [facility] Blood lymphocytes/100 leukoc ytesOrdered By: Alfredo Phipps on 02-04-2023 Lymphocytes/100 WBC (Bld) 21.4 % 19-41 [facility] Blood monocytes/100 leukocyt esOrdered By: Alfredo Phipps on 02-04-2023 Monocytes/100 WBC (Bld) 9.2 % 0-10 [facility] Blood platelet mean volumeOr dered By: Alfredo Phipps on 02-04-2023 Platelet mean volume (Bld) [Entitic vol] 9.4 fL 6.2-12.0 [facility] Determination of erythrocyte mean corpuscular volume (MCV)Ordered By: Alfredo Phipps on 02-04-2023 MCV (RBC) [Entitic vol] 94.2 fL 80-94 [facility] Hematocrit Auto (Bld) [Volum e fraction]Ordered By: Alfredo Phipps on 02-04-2023 Hematocrit (Bld) [Volume fraction] 45.3 % 40-54 [facility] Laboratory - Chemistry and C hemistry - challengeOrdered By: Alfredo Phipps on 02-04-2023 CO2 [Moles/Vol] 24.0 mmol/L 21.0-32.0 [facility] Urea nitrogen/Creatinine [Mass ratio] 14.6 mg/mg 10-20 [facility] - Hematology and Cell countsOrdered By: Alfredo Phipps on 02-04-2023 Erythrocyte distribution width (RBC) [Entitic vol] 45.1 fL 35.1-43.9 [facility] Erythrocyte distribution width (RBC) [Ratio] 13.1 % 11.6-14.6 [facility] Immature granulocytes/100 WBC (Bld) 0.700 % 0.0-0.9 [facility] Comment on above: IG% - Immature Granu locytes (promyelocytes, myelocytes and metamyelocytes) > 1% indicates that a LEFT SHIFT is Present. MCH (RBC) [Entitic mass] 28.9 pg 27.0-32.0 [facility] Nucleated RBC/100 WBC (Bld) [Ratio] 0 % 0-5 [facility] (RBC) [Mass/Vol]Or dered By: Alfredo Phipps on 02-04-2023 MCHC (RBC) [Mass/Vol] 30.7 g/dL 32-36 [facility] No Panel InformationOrdered By: Alfredo Phipps on 02-04-2023 Estimated GFR (MDRD) Amer 53 mL/min >60 [facility] Comment on above: GFR Calc Estimated GFR (MDRD) Non-Af Amer 44 mL/min >60 [facility] Comment on above: Non- GFR Calc [place] Level 0.50 mmol/L 0.60-1.20 [facility] Platelets bldOrdered By: Jennifer Phipps on 02-04-2023 Platelets (Bld) [#/Vol] 182 10*3/uL 150-450 [facility] Serum or plasma albumin you urement (mass/volume)Ordered By: Alfredo Phipps on 02-04-2023 Albumin [Mass/Vol] 2.9 g/dL 3.2-5.0 [facility] Serum or plasma calcium you urement (mass/volume)Ordered By: Alfredo Phipps on 02-04-2023 Calcium [Mass/Vol] 8.9 mg/dL 8.5-10.1 [facility] Serum or plasma creatinine m easurement (mass/volume)Ordered By: Alfredo Phipps on 02-04-2023 Creatinine [Mass/Vol] 1.71 mg/dL 0.70-1.30 [facility] Comment on above: The validity of the calculated GFR & GFRAA in patients over 70 years has not been determined. Clinical correlation is essential. Serum or plasma urea nitroge n measurement (mass/volume)Ordered By: Alfredo Phipps on 02-04-2023 Urea nitrogen [Mass/Vol] 25 mg/dL 7-18 [facility] Serum or plasma uric acid me asurement (mass/volume)Ordered By: Adam Ferraro on 01-25-2023 Urate [Mass/Vol] 5.8 mg/dL 3.5-7.2 [facility] Comment on above: The drugs N-Acetylcy steine and Metamizole may falsely depress this assay. Basophil percentageOrdered B y: Alfredo Phipps on 01-19-2023 Cholesterol [Mass/Vol] 160 mg/dL <200 [facility] Comment on above: <200 mg/dL Desirable 200-240 mg/dL Borderline >240 mg/dL High Risk Triglyceride [Mass/Vol] 322 mg/dL <199 [facility] Comment on above: The drugs N-Acetylcy steine and Metamizole may falsely depress this assay.Serum Triglycerides Reference Interval Normal <150 mg/dL Borderline high 150 - 199 mg/dL High 200 - 499 mg/dL Very High > or = 500 mg/dL Serum or plasma cholesterol in HDL measurement (mass/volume)Ordered By: Alfredo Phipps on 01-19-2023 Cholesterol in HDL [Mass/Vol] 38 mg/dL >40 [facility] Comment on above: The drugs N-Acetylcy steine and Metamizole may falsely depress this assay. Reference Range HDL <40 mg/dL Low HDL Cholesterol HDL >or= 60 mg/dL High HDL Cholesterol Serum or plasma cholesterol in VLDL measurement (mass/volume)Ordered By: Alfredo Phipps on 01-19-2023 Cholesterol in VLDL [Mass/Vol] 64 mg/dL 5-40 [facility] Serum or plasma low density lipoprotein (LDL) cholesterol measurement (mass/volume)Ordered By: Alfredo Phipps on 01-19-2023 Cholesterol in LDL [Mass/Vol] 58 mg/dL 0-130 [facility] Absolute lymphocyte countOrd ered By: Alfredo Phipps on 01-07-2023 Lymphocytes Auto (Unsp spec) [#/Vol] 2.02 10*3/uL 0.83-4.51 [facility] Basophil percentageOrdered B y: Alfredo Phipps on 01-07-2023 Basophil percentage 3.6 mg/dL 2.5-4.9 [facility] Basophils/100 WBC (Bld) 1.0 % 0-1 [facility] Chloride [Moles/Vol] 109 mmol/L 98-107 [facility] Eosinophils/100 WBC (Bld) 2.8 % 0-5 [facility] Glucose [Mass/Vol] 236 mg/dL 74-106 [facility] Comment on above: Glucose result great er than or equal to 200 mg/dLsuggests DIABETES MELLITUS per A.D.A. criteria. Neutrophils (Bld) [#/Vol] 5.8 10*3/uL 2.0-7.7 [facility] Neutrophils/100 WBC (Bld) 62.2 % 47-70 [facility] Potassium [Moles/Vol] 4.1 mmol/L 3.5-5.1 [facility] Sodium [Moles/Vol] 141 mmol/L 136-145 [facility] WBC (Bld) [#/Vol] 9.3 10*3/uL 4.4-11.0 [facility] Blood erythrocytes count (nu mber/volume)Ordered By: Alfredo Phipps on 01-07-2023 RBC (Bld) [#/Vol] 4.67 10*6/uL 4.6-6.2 [facility] Blood hemoglobin measurement (mass/volume)Ordered By: Alfredo Phipps on 01-07-2023 Hemoglobin (Bld) [Mass/Vol] 13.5 g/dL 13.0-16.5 [facility] Blood lymphocytes/100 leukoc ytesOrdered By: Alfredo Phipps on 01-07-2023 Lymphocytes/100 WBC (Bld) 21.8 % 19-41 [facility] Blood monocytes/100 leukocyt esOrdered By: Alfredo Phipps on 01-07-2023 Monocytes/100 WBC (Bld) 11.6 % 0-10 [facility] Blood platelet mean volumeOr dered By: Alfredo Phipps on 01-07-2023 Platelet mean volume (Bld) [Entitic vol] 9.8 fL 6.2-12.0 [facility] Determination of erythrocyte mean corpuscular volume (MCV)Ordered By: Alfredo Phipps on 01-07-2023 MCV (RBC) [Entitic vol] 89.7 fL 80-94 [facility] Hematocrit Auto (Bld) [Volum e fraction]Ordered By: Alfredo Phipps on 01-07-2023 Hematocrit (Bld) [Volume fraction] 41.9 % 40-54 [facility] - Chemistry and C hemistry - challengeOrdered By: Alfredo Phipps on 01-07-2023 CO2 [Moles/Vol] 26.0 mmol/L 21.0-32.0 [facility] Urea nitrogen/Creatinine [Mass ratio] 13.4 mg/mg 10-20 [facility] - Hematology and Cell countsOrdered By: Alfredo Phipps on 01-07-2023 Erythrocyte distribution width (RBC) [Entitic vol] 42.5 fL 35.1-43.9 [facility] Erythrocyte distribution width (RBC) [Ratio] 13.1 % 11.6-14.6 [facility] Immature granulocytes/100 WBC (Bld) 0.600 % 0.0-0.9 [facility] Comment on above: IG% - Immature Granu locytes (promyelocytes, myelocytes and metamyelocytes) > 1% indicates that a LEFT SHIFT is Present. MCH (RBC) [Entitic mass] 28.9 pg 27.0-32.0 [facility] Nucleated RBC/100 WBC (Bld) [Ratio] 0 % 0-5 [facility] MCHC Auto (RBC) [Mass/Vol]Or dered By: Alfredo Phipps on 01-07-2023 MCHC (RBC) [Mass/Vol] 32.2 g/dL 32-36 [facility] No Panel InformationOrdered By: Alfredo Phipps on 01-07-2023 Estimated GFR (MDRD) Amer 48 mL/min >60 [facility] Comment on above: GFR Calc Estimated GFR (MDRD) Non-Af Amer 40 mL/min >60 [facility] Comment on above: Non- GFR Calc [place] Level 0.30 mmol/L 0.60-1.20 [facility] Platelets bldOrdered By: Jennifer Phipps on 01-07-2023 Platelets (Bld) [#/Vol] 203 10*3/uL 150-450 [facility] Serum or plasma albumin you urement (mass/volume)Ordered By: Alfredo Phipps on 01-07-2023 Albumin [Mass/Vol] 2.9 g/dL 3.2-5.0 [facility] Serum or plasma calcium you urement (mass/volume)Ordered By: Alfredo Phipps on 01-07-2023 Calcium [Mass/Vol] 9.0 mg/dL 8.5-10.1 [facility] Serum or plasma creatinine m easurement (mass/volume)Ordered By: Alfredo Phipps on 01-07-2023 Creatinine [Mass/Vol] 1.86 mg/dL 0.70-1.30 [facility] Comment on above: The validity of the calculated GFR & GFRAA in patients over 70 years has not been determined. Clinical correlation is essential. Serum or plasma urea nitroge n measurement (mass/volume)Ordered By: Alfredo Phipps on 01-07-2023 Urea nitrogen [Mass/Vol] 25 mg/dL 7-18 [facility] Serum or plasma uric acid me asurement (mass/volume)Ordered By: Adam Ferraro on 12-28-2022 Urate [Mass/Vol] 5.9 mg/dL 3.5-7.2 [facility] Comment on above: The drugs N-Acetylcy steine and Metamizole may falsely depress this assay. Urine creatinine measurement (mass/volume)Ordered By: Adam Ferraro on 12-15-2022 Creatinine (U) [Mass/Vol] 141.00 mg/dL NO RANGE EST. [facility] Urine protein measurement (m ass/volume)Ordered By: Adam Ferraro on 12-15-2022 Protein (U) [Mass/Vol] 29.9 mg/dL 0.0-11.8 [place] Urine protein/creatinine mas s ratioOrdered By: Adam Ferraro on 12-15-2022 Protein/Creatinine (U) [Mass ratio] 212 mg/g CRE 0-200 [facility] Absolute lymphocyte countOrd ered By: Adam Ferraro on 12-10-2022 Lymphocytes Auto (Unsp spec) [#/Vol] 1.96 10*3/uL 0.83-4.51 [facility] Basophil percentageOrdered B y: Adam Ferraro on 12-10-2022 Basophil percentage 4.0 mg/dL 2.5-4.9 [facility] Basophils/100 WBC (Bld) 1.2 % 0-1 [facility] Chloride [Moles/Vol] 106 mmol/L 98-107 [facility] Eosinophils/100 WBC (Bld) 3.6 % 0-5 [facility] Glucose [Mass/Vol] 155 mg/dL 74-106 [facility] Comment on above: Fasting Glucose resu lt greater than or equal to 126 mg/dL suggests DIABETES MELLITUS per A.D.A. criteria. Neutrophils (Bld) [#/Vol] 4.9 10*3/uL 2.0-7.7 [facility] Neutrophils/100 WBC (Bld) 60.1 % 47-70 [facility] Potassium [Moles/Vol] 4.1 mmol/L 3.5-5.1 [facility] Sodium [Moles/Vol] 140 mmol/L 136-145 [facility] WBC (Bld) [#/Vol] 8.1 10*3/uL 4.4-11.0 [facility] Blood erythrocytes count (nu mber/volume)Ordered By: Adam Ferraro on 12-10-2022 RBC (Bld) [#/Vol] 4.96 10*6/uL 4.6-6.2 [facility] Blood hemoglobin measurement (mass/volume)Ordered By: Adam Ferraro on 12-10-2022 Hemoglobin (Bld) [Mass/Vol] 14.4 g/dL 13.0-16.5 [facility] Blood lymphocytes/100 leukoc ytesOrdered By: Adam Ferraro on 12-10-2022 Lymphocytes/100 WBC (Bld) 24.1 % 19-41 [facility] Blood monocytes/100 leukocyt esOrdered By: Adam Ferraro on 12-10-2022 Monocytes/100 WBC (Bld) 10.6 % 0-10 [facility] Blood platelet mean volumeOr dered By: Adam Ferraro on 12-10-2022 Platelet mean volume (Bld) [Entitic vol] 9.8 fL 6.2-12.0 [facility] Determination of erythrocyte mean corpuscular volume (MCV)Ordered By: Adam Ferraro on 12-10-2022 MCV (RBC) [Entitic vol] 89.5 fL 80-94 [facility] Hematocrit Auto (Bld) [Volum e fraction]Ordered By: Adam Ferraro on 12-10-2022 Hematocrit (Bld) [Volume fraction] 44.4 % 40-54 [facility] - Chemistry and C hemistry - challengeOrdered By: Adam Ferraro on 12-10-2022 CO2 [Moles/Vol] 26.0 mmol/L 21.0-32.0 [facility] Urea nitrogen/Creatinine [Mass ratio] 10.1 mg/mg 10-20 [facility] - Hematology and Cell countsOrdered By: Adam Ferraro on 12-10-2022 Erythrocyte distribution width (RBC) [Entitic vol] 42.6 fL 35.1-43.9 [facility] Erythrocyte distribution width (RBC) [Ratio] 13.0 % 11.6-14.6 [facility] Immature granulocytes/100 WBC (Bld) 0.400 % 0.0-0.9 [facility] Comment on above: IG% - Immature Granu locytes (promyelocytes, myelocytes and metamyelocytes) > 1% indicates that a LEFT SHIFT is Present. MCH (RBC) [Entitic mass] 29.0 pg 27.0-32.0 [facility] Nucleated RBC/100 WBC (Bld) [Ratio] 0 % 0-5 [facility] MCHC Auto (RBC) [Mass/Vol]Or dered By: Adam Ferraro on 12-10-2022 MCHC (RBC) [Mass/Vol] 32.4 g/dL 32-36 [facility] No Panel InformationOrdered By: Adam Ferraro on 12-10-2022 Estimated GFR (MDRD) Amer 50 mL/min >60 [facility] Comment on above: GFR Calc Estimated GFR (MDRD) Non-Af Amer 41 mL/min >60 [facility] Comment on above: Non- GFR Calc [place] Level 0.50 mmol/L 0.60-1.20 [facility] Platelets bldOrdered By: Benoit Ferraro on 12-10-2022 Platelets (Bld) [#/Vol] 213 10*3/uL 150-450 [facility] Serum or plasma albumin you urement (mass/volume)Ordered By: Adam Ferraro on 12-10-2022 Albumin [Mass/Vol] 2.8 g/dL 3.2-5.0 [facility] Serum or plasma calcium you urement (mass/volume)Ordered By: Adam Ferraro on 12-10-2022 Calcium [Mass/Vol] 8.8 mg/dL 8.5-10.1 [facility] Serum or plasma creatinine m easurement (mass/volume)Ordered By: Adam Ferraro on 12-10-2022 Creatinine [Mass/Vol] 1.79 mg/dL 0.70-1.30 [facility] Comment on above: The validity of the calculated GFR & GFRAA in patients over 70 years has not been determined. Clinical correlation is essential. Serum or plasma urea nitroge n measurement (mass/volume)Ordered By: Adam Ferraro on 12-10-2022 Urea nitrogen [Mass/Vol] 18 mg/dL 7-18 [facility] Urine creatinine measurement (mass/volume)Ordered By: Adam Ferraro on 11-17-2022 Creatinine (U) [Mass/Vol] 74.70 mg/dL NO RANGE EST. [facility] Urine protein measurement (m ass/volume)Ordered By: Adam Ferraro on 11-17-2022 Protein (U) [Mass/Vol] 16.5 mg/dL 0.0-11.8 [place] Urine protein/creatinine mas s ratioOrdered By: Adam Ferraro on 11-17-2022 Protein/Creatinine (U) [Mass ratio] 221 mg/g CRE 0-200 [facility] Absolute lymphocyte countOrd ered By: Alfredo Phipps on 11-12-2022 Lymphocytes Auto (Unsp spec) [#/Vol] 2.11 10*3/uL 0.83-4.51 [facility] Basophil percentageOrdered B y: Alfredo Phipps on 11-12-2022 Basophil percentage 3.3 mg/dL 2.5-4.9 [facility] Basophils/100 WBC (Bld) 0.7 % 0-1 [facility] Chloride [Moles/Vol] 106 mmol/L 98-107 [facility] Eosinophils/100 WBC (Bld) 2.4 % 0-5 [facility] Glucose [Mass/Vol] 169 mg/dL 74-106 [facility] Comment on above: Fasting Glucose resu lt greater than or equal to 126 mg/dL suggests DIABETES MELLITUS per A.D.A. criteria. Neutrophils (Bld) [#/Vol] 6.1 10*3/uL 2.0-7.7 [facility] Neutrophils/100 WBC (Bld) 63.5 % 47-70 [facility] Potassium [Moles/Vol] 3.5 mmol/L 3.5-5.1 [facility] Sodium [Moles/Vol] 138 mmol/L 136-145 [facility] WBC (Bld) [#/Vol] 9.6 10*3/uL 4.4-11.0 [facility] Blood erythrocytes count (nu mber/volume)Ordered By: Alfredo Phipps on 11-12-2022 RBC (Bld) [#/Vol] 4.67 10*6/uL 4.6-6.2 [facility] Blood hemoglobin measurement (mass/volume)Ordered By: Alfredo Phipps on 11-12-2022 Hemoglobin (Bld) [Mass/Vol] 13.9 g/dL 13.0-16.5 [facility] Blood lymphocytes/100 leukoc ytesOrdered By: Alfredo Phipps on 11-12-2022 Lymphocytes/100 WBC (Bld) 21.9 % 19-41 [facility] Blood monocytes/100 leukocyt esOrdered By: Alfredo Phipps on 11-12-2022 Monocytes/100 WBC (Bld) 10.8 % 0-10 [facility] Blood platelet mean volumeOr dered By: Alfredo Phipps on 11-12-2022 Platelet mean volume (Bld) [Entitic vol] 9.8 fL 6.2-12.0 [facility] Determination of erythrocyte mean corpuscular volume (MCV)Ordered By: Alfredo Phipps on 11-12-2022 MCV (RBC) [Entitic vol] 89.1 fL 80-94 [facility] Hematocrit Auto (Bld) [Volum e fraction]Ordered By: Alfredo Phipps on 11-12-2022 Hematocrit (Bld) [Volume fraction] 41.6 % 40-54 [facility] - Chemistry and C hemistry - challengeOrdered By: Alfredo Phipps on 11-12-2022 CO2 [Moles/Vol] 25.0 mmol/L 21.0-32.0 [facility] Urea nitrogen/Creatinine [Mass ratio] 11.4 mg/mg 10-20 [facility] - Hematology and Cell countsOrdered By: Alfredo Phipps on 11-12-2022 Erythrocyte distribution width (RBC) [Entitic vol] 43.2 fL 35.1-43.9 [facility] Erythrocyte distribution width (RBC) [Ratio] 13.2 % 11.6-14.6 [facility] Immature granulocytes/100 WBC (Bld) 0.700 % 0.0-0.9 [facility] Comment on above: IG% - Immature Granu locytes (promyelocytes, myelocytes and metamyelocytes) > 1% indicates that a LEFT SHIFT is Present. MCH (RBC) [Entitic mass] 29.8 pg 27.0-32.0 [facility] Nucleated RBC/100 WBC (Bld) [Ratio] 0 % 0-5 [facility] MCHC Auto (RBC) [Mass/Vol]Or dered By: Alfredo Phipps on 11-12-2022 MCHC (RBC) [Mass/Vol] 33.4 g/dL 32-36 [facility] No Panel InformationOrdered By: Alfredo Phipps on 11-12-2022 Estimated GFR (MDRD) Amer 48 mL/min >60 [facility] Comment on above: GFR Calc Estimated GFR (MDRD) Non-Af Amer 40 mL/min >60 [facility] Comment on above: Non- GFR Calc [place] Level 0.40 mmol/L 0.60-1.20 [facility] Platelets bldOrdered By: Jennifer Phipps on 11-12-2022 Platelets (Bld) [#/Vol] 200 10*3/uL 150-450 [facility] Serum or plasma albumin you urement (mass/volume)Ordered By: Alfredo Phipps on 11-12-2022 Albumin [Mass/Vol] 2.9 g/dL 3.2-5.0 [facility] Serum or plasma calcium you urement (mass/volume)Ordered By: Alfredo Phipps on 11-12-2022 Calcium [Mass/Vol] 8.7 mg/dL 8.5-10.1 [facility] Serum or plasma creatinine m easurement (mass/volume)Ordered By: Alfredo Phipps on 11-12-2022 Creatinine [Mass/Vol] 1.85 mg/dL 0.70-1.30 [facility] Comment on above: The validity of the calculated GFR & GFRAA in patients over 70 years has not been determined. Clinical correlation is essential. Serum or plasma urea nitroge n measurement (mass/volume)Ordered By: Alfredo Phipps on 11-12-2022 Urea nitrogen [Mass/Vol] 21 mg/dL 7-18 [facility] Serum or plasma uric acid me asurement (mass/volume)Ordered By: Alfredo Phipps on 10-27-2022 Urate [Mass/Vol] 6.4 mg/dL 3.5-7.2 [facility] Comment on above: The drugs N-Acetylcy steine and Metamizole may falsely depress this assay. Absolute lymphocyte countOrd ered By: Alfredo Phipps on 10-15-2022 Lymphocytes Auto (Unsp spec) [#/Vol] 2.30 10*3/uL 0.83-4.51 [facility] Basophil percentageOrdered B y: Alfredo Phipps on 10-15-2022 Basophil percentage 4.2 mg/dL 2.5-4.9 [facility] Basophils/100 WBC (Bld) 1.0 % 0-1 [facility] Chloride [Moles/Vol] 108 mmol/L 98-107 [facility] Eosinophils/100 WBC (Bld) 3.2 % 0-5 [facility] Glucose [Mass/Vol] 168 mg/dL 74-106 [facility] Comment on above: Fasting Glucose resu lt greater than or equal to 126 mg/dL suggests DIABETES MELLITUS per A.D.A. criteria. Neutrophils (Bld) [#/Vol] 4.8 10*3/uL 2.0-7.7 [facility] Neutrophils/100 WBC (Bld) 58.3 % 47-70 [facility] Potassium [Moles/Vol] 4.1 mmol/L 3.5-5.1 [facility] Comment on above: Slight Hemolysis, Re sult may be falsely increased. Sodium [Moles/Vol] 140 mmol/L 136-145 [facility] WBC (Bld) [#/Vol] 8.3 10*3/uL 4.4-11.0 [facility] Blood erythrocytes count (nu mber/volume)Ordered By: Alfredo Phipps on 10-15-2022 RBC (Bld) [#/Vol] 4.81 10*6/uL 4.6-6.2 [facility] Blood hemoglobin measurement (mass/volume)Ordered By: Alfredo Phipps on 10-15-2022 Hemoglobin (Bld) [Mass/Vol] 13.9 g/dL 13.0-16.5 [facility] Blood lymphocytes/100 leukoc ytesOrdered By: Alfredo Phipps on 10-15-2022 Lymphocytes/100 WBC (Bld) 27.6 % 19-41 [facility] Blood monocytes/100 leukocyt esOrdered By: Alfredo Phipps on 10-15-2022 Monocytes/100 WBC (Bld) 9.1 % 0-10 [facility] Blood platelet mean volumeOr dered By: Alfredo Phipps on 10-15-2022 Platelet mean volume (Bld) [Entitic vol] 10.1 fL 6.2-12.0 [facility] Determination of erythrocyte mean corpuscular volume (MCV)Ordered By: Alfredo Phipps on 10-15-2022 MCV (RBC) [Entitic vol] 89.4 fL 80-94 [facility] Hematocrit Auto (Bld) [Volum e fraction]Ordered By: Alfredo Phipps on 10-15-2022 Hematocrit (Bld) [Volume fraction] 43.0 % 40-54 [facility] - Chemistry and C hemistry - challengeOrdered By: Alfredo Phipps on 10-15-2022 CO2 [Moles/Vol] 28.0 mmol/L 21.0-32.0 [facility] Urea nitrogen/Creatinine [Mass ratio] 11.3 mg/mg 10-20 [facility] - Hematology and Cell countsOrdered By: Alfredo Phipps on 10-15-2022 Erythrocyte distribution width (RBC) [Entitic vol] 42.9 fL 35.1-43.9 [facility] Erythrocyte distribution width (RBC) [Ratio] 13.2 % 11.6-14.6 [facility] Immature granulocytes/100 WBC (Bld) 0.800 % 0.0-0.9 [facility] Comment on above: IG% - Immature Granu locytes (promyelocytes, myelocytes and metamyelocytes) > 1% indicates that a LEFT SHIFT is Present. MCH (RBC) [Entitic mass] 28.9 pg 27.0-32.0 [facility] Nucleated RBC/100 WBC (Bld) [Ratio] 0 % 0-5 [facility] Auto (RBC) [Mass/Vol]Or dered By: Alfredo Phipps on 10-15-2022 MCHC (RBC) [Mass/Vol] 32.3 g/dL 32-36 [facility] No Panel InformationOrdered By: Alfredo Phipps on 10-15-2022 Estimated GFR (MDRD) Amer 46 mL/min >60 [facility] Comment on above: GFR Calc Estimated GFR (MDRD) Non-Af Amer 38 mL/min >60 [facility] Comment on above: Non- GFR Calc [place] Level 0.50 mmol/L 0.60-1.20 [facility] Platelets bldOrdered By: Jennifer Phipps on 10-15-2022 Platelets (Bld) [#/Vol] 200 10*3/uL 150-450 [facility] Serum or plasma albumin you urement (mass/volume)Ordered By: Alfredo Phipps on 10-15-2022 Albumin [Mass/Vol] 2.9 g/dL 3.2-5.0 [facility] Serum or plasma calcium you urement (mass/volume)Ordered By: Alfredo Phipps on 10-15-2022 Calcium [Mass/Vol] 9.1 mg/dL 8.5-10.1 [facility] Serum or plasma creatinine m easurement (mass/volume)Ordered By: Alfredo Phipps on 10-15-2022 Creatinine [Mass/Vol] 1.94 mg/dL 0.70-1.30 [facility] Comment on above: The validity of the calculated GFR & GFRAA in patients over 70 years has not been determined. Clinical correlation is essential. Serum or plasma urea nitroge n measurement (mass/volume)Ordered By: Alfredo Phipps on 10-15-2022 Urea nitrogen [Mass/Vol] 22 mg/dL 7-18 [facility] Serum or plasma uric acid me asurement (mass/volume)Ordered By: Alfredo Phipps on 09-27-2022 Urate [Mass/Vol] 7.0 mg/dL 3.5-7.2 [facility] Comment on above: The drugs N-Acetylcy steine and Metamizole may falsely depress this assay. Absolute lymphocyte countOrd ered By: Adam Ferraro on 09-17-2022 Lymphocytes Auto (Unsp spec) [#/Vol] 2.69 10*3/uL 0.83-4.51 [facility] Basophil percentageOrdered B y: Adam Ferraro on 09-17-2022 Basophil percentage 3.8 mg/dL 2.5-4.9 [facility] Basophils/100 WBC (Bld) 0.9 % 0-1 [facility] Chloride [Moles/Vol] 105 mmol/L 98-107 [facility] Eosinophils/100 WBC (Bld) 3.2 % 0-5 [facility] Glucose [Mass/Vol] 141 mg/dL 74-106 [facility] Comment on above: Fasting Glucose resu lt greater than or equal to 126 mg/dL suggests DIABETES MELLITUS per A.D.A. criteria. Neutrophils (Bld) [#/Vol] 5.1 10*3/uL 2.0-7.7 [facility] Neutrophils/100 WBC (Bld) 56.1 % 47-70 [facility] Potassium [Moles/Vol] 3.8 mmol/L 3.5-5.1 [facility] Sodium [Moles/Vol] 139 mmol/L 136-145 [facility] WBC (Bld) [#/Vol] 9.0 10*3/uL 4.4-11.0 [facility] Blood erythrocytes count (nu mber/volume)Ordered By: Adam Ferraro on 09-17-2022 RBC (Bld) [#/Vol] 4.99 10*6/uL 4.6-6.2 [facility] Blood hemoglobin measurement (mass/volume)Ordered By: Adam Ferraro on 09-17-2022 Hemoglobin (Bld) [Mass/Vol] 14.8 g/dL 13.0-16.5 [facility] Blood lymphocytes/100 leukoc ytesOrdered By: Adam Ferraro on 09-17-2022 Lymphocytes/100 WBC (Bld) 29.8 % 19-41 [facility] Blood monocytes/100 leukocyt esOrdered By: Adam Ferraro on 09-17-2022 Monocytes/100 WBC (Bld) 9.4 % 0-10 [facility] Blood platelet mean volumeOr dered By: Adam Ferraro on 09-17-2022 Platelet mean volume (Bld) [Entitic vol] 10.2 fL 6.2-12.0 [facility] Determination of erythrocyte mean corpuscular volume (MCV)Ordered By: Adam Ferraro on 09-17-2022 MCV (RBC) [Entitic vol] 88.6 fL 80-94 [facility] Hematocrit Auto (Bld) [Volum e fraction]Ordered By: Adam Ferraro on 09-17-2022 Hematocrit (Bld) [Volume fraction] 44.2 % 40-54 [facility] - Chemistry and C hemistry - challengeOrdered By: Adam Ferraro on 09-17-2022 CO2 [Moles/Vol] 26.0 mmol/L 21.0-32.0 [facility] Urea nitrogen/Creatinine [Mass ratio] 11.4 mg/mg 10-20 [facility] - Hematology and Cell countsOrdered By: Adam Ferraro on 09-17-2022 Erythrocyte distribution width (RBC) [Entitic vol] 42.8 fL 35.1-43.9 [facility] Erythrocyte distribution width (RBC) [Ratio] 13.2 % 11.6-14.6 [facility] Immature granulocytes/100 WBC (Bld) 0.600 % 0.0-0.9 [facility] Comment on above: IG% - Immature Granu locytes (promyelocytes, myelocytes and metamyelocytes) > 1% indicates that a LEFT SHIFT is Present. MCH (RBC) [Entitic mass] 29.7 pg 27.0-32.0 [facility] Nucleated RBC/100 WBC (Bld) [Ratio] 0 % 0-5 [facility] MCHC Auto (RBC) [Mass/Vol]Or dered By: Adam Ferraro on 09-17-2022 MCHC (RBC) [Mass/Vol] 33.5 g/dL 32-36 [facility] No Panel InformationOrdered By: Adam Ferraro on 09-17-2022 [place] Level 0.50 mmol/L 0.60-1.20 [facility] Estimated GFR (MDRD) Amer 51 mL/min >60 [facility] Comment on above: GFR Calc Estimated GFR (MDRD) Non-Af Amer 42 mL/min >60 [facility] Comment on above: Non- GFR Calc Platelets bldOrdered By: Benoit Ferraro on 09-17-2022 Platelets (Bld) [#/Vol] 178 10*3/uL 150-450 [facility] Serum or plasma albumin you urement (mass/volume)Ordered By: Adam Ferraro on 09-17-2022 Albumin [Mass/Vol] 3.0 g/dL 3.2-5.0 [facility] Serum or plasma calcium you urement (mass/volume)Ordered By: Adam Ferraro on 09-17-2022 Calcium [Mass/Vol] 9.0 mg/dL 8.5-10.1 [facility] Serum or plasma creatinine m easurement (mass/volume)Ordered By: Adam Ferraro on 09-17-2022 Creatinine [Mass/Vol] 1.76 mg/dL 0.70-1.30 [facility] Comment on above: The validity of the calculated GFR & GFRAA in patients over 70 years has not been determined. Clinical correlation is essential. Serum or plasma urea nitroge n measurement (mass/volume)Ordered By: Adam Ferraro on 09-17-2022 Urea nitrogen [Mass/Vol] 20 mg/dL 7-18 [facility] Urine creatinine measurement (mass/volume)Ordered By: Adam Ferraro on 09-17-2022 Creatinine (U) [Mass/Vol] 128.00 mg/dL NO RANGE EST. [facility] Urine protein measurement (m ass/volume)Ordered By: Adam Ferraro on 09-17-2022 Protein (U) [Mass/Vol] 20.9 mg/dL 0.0-11.8 [place] Urine protein/creatinine mas s ratioOrdered By: Adam Ferraro on 09-17-2022 Protein/Creatinine (U) [Mass ratio] 163 mg/g CRE 0-200 [facility] Serum or plasma uric acid me asurement (mass/volume)Ordered By: Adam Ferraro on 08-27-2022 Urate [Mass/Vol] 6.4 mg/dL 3.5-7.2 [facility] Comment on above: The drugs N-Acetylcy steine and Metamizole may falsely depress this assay. No Panel InformationOrdered By: Adam Ferraro on 08-23-2022 [place] Level 0.40 mmol/L 0.60-1.20 [facility] Culture, urineOrdered By: Chan Fiore on 08-15-2022 Bacteria identified Cx Nom (U) Streptococcus mitis [facility] Absolute lymphocyte countOrd ered By: Alfredo Phipps on 08-12-2022 Lymphocytes Auto (Unsp spec) [#/Vol] 2.09 10*3/uL 0.83-4.51 [facility] Basophil percentageOrdered B y: Alfredo Phipps on 08-12-2022 Basophil percentage 3.6 mg/dL 2.5-4.9 [facility] Basophils/100 WBC (Bld) 0.9 % 0-1 [facility] Chloride [Moles/Vol] 107 mmol/L 98-107 [facility] Eosinophils/100 WBC (Bld) 2.8 % 0-5 [facility] Glucose [Mass/Vol] 151 mg/dL 74-106 [facility] Comment on above: Fasting Glucose resu lt greater than or equal to 126 mg/dL suggests DIABETES MELLITUS per A.D.A. criteria. Neutrophils (Bld) [#/Vol] 5.5 10*3/uL 2.0-7.7 [facility] Neutrophils/100 WBC (Bld) 63.4 % 47-70 [facility] Potassium [Moles/Vol] 4.0 mmol/L 3.5-5.1 [facility] Sodium [Moles/Vol] 140 mmol/L 136-145 [facility] WBC (Bld) [#/Vol] 8.7 10*3/uL 4.4-11.0 [facility] Basophil percentage 10-25 SEEN /hpf 0-5 [facility] Bilirubin Test strip Ql (U)O rdered By: Alfredo Phipps on 08-12-2022 Bilirubin Ql (U) Negative Negative [facility] Blood erythrocytes count (nu mber/volume)Ordered By: Alfredo Phipps on 08-12-2022 RBC (Bld) [#/Vol] 4.92 10*6/uL 4.6-6.2 [facility] Blood hemoglobin measurement (mass/volume)Ordered By: Alfredo Phipps on 08-12-2022 Hemoglobin (Bld) [Mass/Vol] 14.5 g/dL 13.0-16.5 [facility] Blood lymphocytes/100 leukoc ytesOrdered By: Alfredo Phipps on 08-12-2022 Lymphocytes/100 WBC (Bld) 24.1 % 19-41 [facility] Blood monocytes/100 leukocyt esOrdered By: Alfredo Phipps on 08-12-2022 Monocytes/100 WBC (Bld) 8.3 % 0-10 [facility] Blood platelet mean volumeOr dered By: Alfredo Phipps on 08-12-2022 Platelet mean volume (Bld) [Entitic vol] 9.8 fL 6.2-12.0 [facility] Determination of erythrocyte mean corpuscular volume (MCV)Ordered By: Alfredo Phipps on 08-12-2022 MCV (RBC) [Entitic vol] 91.1 fL 80-94 [facility] Hematocrit Auto (Bld) [Volum e fraction]Ordered By: Alfredo Phipps on 08-12-2022 Hematocrit (Bld) [Volume fraction] 44.8 % 40-54 [facility] Ketones Test strip Ql (U)Ord ered By: Alfredo Phipps on 08-12-2022 Ketones Ql (U) Negative Negative [facility] - Chemistry and C hemistry - challengeOrdered By: Alfredo Phipps on 08-12-2022 CO2 [Moles/Vol] 25.0 mmol/L 21.0-32.0 [facility] Urea nitrogen/Creatinine [Mass ratio] 14.9 mg/mg 10-20 [facility] - Hematology and Cell countsOrdered By: Alfredo Phipps on 08-12-2022 Erythrocyte distribution width (RBC) [Entitic vol] 43.3 fL 35.1-43.9 [facility] Erythrocyte distribution width (RBC) [Ratio] 12.9 % 11.6-14.6 [facility] Immature granulocytes/100 WBC (Bld) 0.500 % 0.0-0.9 [facility] Comment on above: IG% - Immature Granu locytes (promyelocytes, myelocytes and metamyelocytes) > 1% indicates that a LEFT SHIFT is Present. MCH (RBC) [Entitic mass] 29.5 pg 27.0-32.0 [facility] Nucleated RBC/100 WBC (Bld) [Ratio] 0 % 0-5 [facility] MCHC Auto (RBC) [Mass/Vol]Or dered By: Alfredo Phipps on 08-12-2022 MCHC (RBC) [Mass/Vol] 32.4 g/dL 32-36 [facility] Mucus LM Ql (Urine sed)Order ed By: Alfredo Phipps on 08-12-2022 Mucus Ql (Urine sed) Not Reportable [facility] Nitrite Test strip Ql (U)Ord ered By: Alfredo Phipps on 08-12-2022 Nitrite Ql (U) Negative Negative [facility] No Panel InformationOrdered By: Alfredo Phipps on 08-12-2022 Estimated GFR (MDRD) Amer 54 mL/min >60 [facility] Comment on above: GFR Calc Estimated GFR (MDRD) Non-Af Amer 45 mL/min >60 [facility] Comment on above: Non- GFR Calc Platelets bldOrdered By: Pet shonda Phipps on 08-12-2022 Platelets (Bld) [#/Vol] 238 10*3/uL 150-450 [facility] Protein Test strip Ql (U)Ord ered By: Alfredo Phipps on 08-12-2022 Protein Ql (U) 15 mg/dl Negative [facility] Serum or plasma albumin you urement (mass/volume)Ordered By: Alfredo Phipps on 08-12-2022 Albumin [Mass/Vol] 2.9 g/dL 3.2-5.0 [facility] Serum or plasma calcium you urement (mass/volume)Ordered By: Alfredo Phipps on 08-12-2022 Calcium [Mass/Vol] 9.2 mg/dL 8.5-10.1 [facility] Serum or plasma creatinine m easurement (mass/volume)Ordered By: Alfredo Phipps on 08-12-2022 Creatinine [Mass/Vol] 1.68 mg/dL 0.70-1.30 [facility] Comment on above: The validity of the calculated GFR & GFRAA in patients over 70 years has not been determined. Clinical correlation is essential. Serum or plasma urea nitroge n measurement (mass/volume)Ordered By: Alfredo Phipps on 08-12-2022 Urea nitrogen [Mass/Vol] 25 mg/dL 7-18 [facility] Squamous epithelial cells de tection in urine sediment by light microscopyOrdered By: Alfredo Phipps on 08-12-2022 Epithelial cells.squamous LM Ql (Urine sed) 0-5 SEEN /hpf 0-5 [facility] Urine blood detectionOrdered By: Alfredo Phipps on 08-12-2022 RBC Ql (U) Negative Negative [facility] RBC Ql (U) 0 SEEN /hpf 0-5 [facility] Urine clarityOrdered By: Jennifer Phipps on 08-12-2022 Clarity (U) Clear Clear [facility] Urine color determinationOrd ered By: Alfredo Phipps on 08-12-2022 Color (U) Yellow Yellow [facility] Urine creatinine measurement (mass/volume)Ordered By: Alfredo Phipps on 08-12-2022 Creatinine (U) [Mass/Vol] 102.00 mg/dL NO RANGE EST. [facility] Urine glucose detectionOrder ed By: Alfredo Phipps on 08-12-2022 Glucose Ql (U) Normal mg/dl Normal [facility] Urine leukocyte esterase det ection by dipstickOrdered By: Alfredo Phipps on 08-12-2022 Leukocyte esterase Test strip Ql (U) 500 /ul Negative [facility] Urine pHOrdered By: Alfredo saha on 08-12-2022 pH (U) 6.0 [pH] 5.0 - 8.0 [facility] Urine protein measurement (m ass/volume)Ordered By: Alfredo Phipps on 08-12-2022 Protein (U) [Mass/Vol] 19.9 mg/dL 0.0-11.8 [place] Urine protein/creatinine mas s ratioOrdered By: Alfredo Phipps on 08-12-2022 Protein/Creatinine (U) [Mass ratio] 195 mg/g CRE 0-200 [facility] Urine sediment bacteria coun t by microscopy (number/high power field)Ordered By: Alfredo Phipps on 08-12-2022 Bacteria LM.HPF (Urine sed) [#/Area] RARE /hpf None Seen [facility] Urine specific gravity measu rementOrdered By: Alfredo Phipps on 08-12-2022 Specific gravity (U) [Rel density] 1.015 1.002-1.03 0 [facility] Urobilinogen Auto test strip Ql (U)Ordered By: Alfredo Phipps on 08-12-2022 Urobilinogen Ql (U) Normal mg/dl Normal [facility] No Panel Informationon 07-28 [place] Level 0.60 mmol/L 0.60-1.20 [facility] Work Phone: Serum or plasma uric acid me asurement (mass/volume)on 07-28-2022 Urate [Mass/Vol] 6.3 mg/dL 3.5-7.2 [facility] Work Phone: Comment on above: The drugs N-Acetylcy steine and Metamizole may falsely depress this assay. URINALYSIS, REFLEX MICROSCOP ICon 07-27-2022 Bilirubin Ql (U) Negative Negative [facility] Clarity (Unsp spec) Clear Clear [facility] Color (U) Colorless Yellow [facility] Glucose Test strip (U) [Mass/Vol] Negative Negative [facility] Hemoglobin Ql (U) Negative Negative [facility] Ketones Ql (U) Negative Negative [facility] Leukocyte esterase Test strip Ql (U) Negative Negative [facility] Nitrite Ql (U) Negative Negative [facility] pH (U) 6.5 [pH] 5.0 - 8.0 [facility] Protein (U) [Mass/Vol] Negative Negative [facility] Specific gravity (U) [Rel density] 1.009 1.005 - 1.030 [facility] Urobilinogen Ql (U) Negative Negative [facility] Absolute lymphocyte counton 07-15-2022 Lymphocytes Auto (Unsp spec) [#/Vol] 1.93 10*3/uL 0.83-4.51 [facility] Work Phone: Basophil percentageon 2021 Basophil percentage 3.9 mg/dL 2.5-4.9 [facility] Work Phone: Basophils/100 WBC (Bld) 1.3 % 0-1 [facility] Work Phone: Chloride [Moles/Vol] 107 mmol/L 98-107 [facility] Work Phone: Eosinophils/100 WBC (Bld) 1.7 % 0-5 [facility] Work Phone: Glucose [Mass/Vol] 126 mg/dL 74-106 [facility] Work Phone: Comment on above: Fasting Glucose resu lt greater than or equal to 126 mg/dL suggests DIABETES MELLITUS per A.D.A. criteria. Neutrophils (Bld) [#/Vol] 6.1 10*3/uL 2.0-7.7 [facility] Work Phone: Neutrophils/100 WBC (Bld) 66.5 % 47-70 [facility] Work Phone: Potassium [Moles/Vol] 4.4 mmol/L 3.5-5.1 [facility] Work Phone: Sodium [Moles/Vol] 139 mmol/L 136-145 [facility] Work Phone: WBC (Bld) [#/Vol] 9.2 10*3/uL 4.4-11.0 [facility] Work Phone: [phone] Bilirubin Test strip Ql (U)o n 07-15-2022 Bilirubin Ql (U) Negative Negative [facility] Work Phone: Blood erythrocytes count (nu mber/volume)on 07-15-2022 RBC (Bld) [#/Vol] 5.01 10*6/uL 4.6-6.2 [facility] Work Phone: Blood hemoglobin measurement (mass/volume)on 07-15-2022 Hemoglobin (Bld) [Mass/Vol] 14.8 g/dL 13.0-16.5 [facility] Work Phone: Blood lymphocytes/100 leukoc yteson 07-15-2022 Lymphocytes/100 WBC (Bld) 20.9 % 19-41 [facility] Work Phone: Blood monocytes/100 leukocyt eson 07-15-2022 Monocytes/100 WBC (Bld) 8.9 % 0-10 [facility] Work Phone: Blood platelet mean volumeon 07-15-2022 Platelet mean volume (Bld) [Entitic vol] 9.7 fL 6.2-12.0 [facility] Work Phone: Determination of erythrocyte mean corpuscular volume (MCV)on 07-15-2022 MCV (RBC) [Entitic vol] 91.8 fL 80-94 [facility] Work Phone: [phone] Hematocrit Auto (Bld) [Volum e fraction]on 07-15-2022 Hematocrit (Bld) [Volume fraction] 46.0 % 40-54 [facility] Work Phone: Ketones Test strip Ql (U)on 07-15-2022 Ketones Ql (U) Negative Negative [facility] Work Phone: Laboratory - Chemistry and C hemistry - challengeon 07-15-2022 CO2 [Moles/Vol] 25.0 mmol/L 21.0-32.0 [facility] Work Phone: Urea nitrogen/Creatinine [Mass ratio] 14.9 mg/mg 10-20 [facility] Work Phone: Laboratory - Hematology and Cell countson 07-15-2022 Erythrocyte distribution width (RBC) [Entitic vol] 44.0 fL 35.1-43.9 [facility] Work Phone: Erythrocyte distribution width (RBC) [Ratio] 13.1 % 11.6-14.6 [facility] Work Phone: Immature granulocytes/100 WBC (Bld) 0.700 % 0.0-0.9 [facility] Work Phone: Comment on above: IG% - Immature Granu locytes (promyelocytes, myelocytes and metamyelocytes) > 1% indicates that a LEFT SHIFT is Present. MCH (RBC) [Entitic mass] 29.5 pg 27.0-32.0 [facility] [facility] Work Phone: [phone] Nucleated RBC/100 WBC (Bld) [Ratio] 0 % 0-5 [facility] Work Phone: MCHC Auto (RBC) [Mass/Vol]on 07-15-2022 MCHC (RBC) [Mass/Vol] 32.2 g/dL 32-36 [facility] Work Phone: Nitrite Test strip Ql (U)on 07-15-2022 Nitrite Ql (U) Negative Negative [facility] Work Phone: No Panel Informationon 07-15 Estimated GFR (MDRD) Amer 54 mL/min >60 [facility] Work Phone: Comment on above: GFR Calc Estimated GFR (MDRD) Non-Af Amer 45 mL/min >60 [facility] Work Phone: Comment on above: Non- GFR Calc Platelets bldon 07-15-2022 Platelets (Bld) [#/Vol] 231 10*3/uL 150-450 [facility] Work Phone: Protein Test strip Ql (U)on 07-15-2022 Protein Ql (U) 30 mg/dl Negative [facility] Work Phone: Serum or plasma albumin you urement (mass/volume)on 07-15-2022 Albumin [Mass/Vol] 3.1 g/dL 3.2-5.0 [facility] Work Phone: Serum or plasma calcium you urement (mass/volume)on 07-15-2022 Calcium [Mass/Vol] 8.6 mg/dL 8.5-10.1 [facility] Work Phone: Serum or plasma creatinine m easurement (mass/volume)on 07-15-2022 Creatinine [Mass/Vol] 1.68 mg/dL 0.70-1.30 [facility] Work Phone: Comment on above: The validity of the calculated GFR & GFRAA in patients over 70 years has not been determined. Clinical correlation is essential. Serum or plasma urea nitroge n measurement (mass/volume)on 07-15-2022 Urea nitrogen [Mass/Vol] 25 mg/dL 7-18 [facility] Work Phone: [phone] Urine blood detectionon 09-0 RBC Ql (U) Negative Negative [facility] Work Phone: Urine clarityon 07-15-2022 Clarity (U) Sl. Cloudy Clear [facility] Work Phone: [phone] Urine color determinationon 07-15-2022 Color (U) Yellow Yellow [facility] Work Phone: Urine creatinine measurement (mass/volume)on 07-15-2022 Creatinine (U) [Mass/Vol] 114.00 mg/dL NO RANGE EST. [facility] Work Phone: Urine glucose detectionon Glucose Ql (U) Normal mg/dl Normal [facility] Work Phone: Urine leukocyte esterase det ection by dipstickon 07-15-2022 Leukocyte esterase Test strip Ql (U) 100 /ul Negative [facility] Work Phone: Urine pHon 07-15-2022 pH (U) 6.0 [pH] 5.0 - 8.0 [facility] Work Phone: [phone] Urine protein measurement (m ass/volume)on 07-15-2022 Protein (U) [Mass/Vol] 26.5 mg/dL 0.0-11.8 [place] Work Phone: Urine protein/creatinine mas s ratioon 07-15-2022 Protein/Creatinine (U) [Mass ratio] 232 mg/g CRE 0-200 [facility] Work Phone: Urine specific gravity measu rementon 07-15-2022 Specific gravity (U) [Rel density] 1.015 1.002-1.03 0 [facility] Work Phone: Urobilinogen Auto test strip Ql (U)on 07-15-2022 Urobilinogen Ql (U) Normal mg/dl Normal [facility] Work Phone: Basophil percentageon 2021 Cholesterol [Mass/Vol] 149 mg/dL <200 [facility] Work Phone: Comment on above: <200 mg/dL Desirable 200-240 mg/dL Borderline >240 mg/dL High Risk Triglyceride [Mass/Vol] 379 mg/dL <199 [facility] Work Phone: Comment on above: The drugs N-Acetylcy steine and Metamizole may falsely depress this assay.Serum Triglycerides Reference Interval Normal <150 mg/dL Borderline high 150 - 199 mg/dL High 200 - 499 mg/dL Very High > or = 500 mg/dL No Panel Informationon 06-28 [place] Level 0.40 mmol/L 0.60-1.20 [facility] Work Phone: Serum or plasma cholesterol in HDL measurement (mass/volume)on 06-28-2022 Cholesterol in HDL [Mass/Vol] 34 mg/dL >40 [facility] Work Phone: Comment on above: The drugs N-Acetylcy steine and Metamizole may falsely depress this assay. Reference Range HDL <40 mg/dL Low HDL Cholesterol HDL >or= 60 mg/dL High HDL Cholesterol Serum or plasma cholesterol in VLDL measurement (mass/volume)on 06-28-2022 Cholesterol in VLDL [Mass/Vol] 76 mg/dL 5-40 [facility] Work Phone: Serum or plasma low density lipoprotein (LDL) cholesterol measurement (mass/volume)on 06-28-2022 Cholesterol in LDL [Mass/Vol] 39 mg/dL 0-130 [facility] Work Phone: Serum or plasma uric acid me asurement (mass/volume)on 06-28-2022 Urate [Mass/Vol] 5.9 mg/dL 3.5-7.2 [facility] Work Phone: Comment on above: The drugs N-Acetylcy steine and Metamizole may falsely depress this assay. Absolute lymphocyte counton 06-17-2022 Lymphocytes Auto (Unsp spec) [#/Vol] 2.02 10*3/uL 0.83-4.51 [facility] Work Phone: Basophil percentageon 2021 Basophil percentage 0-5 SEEN /hpf 0-5 [facility] Work Phone: Basophil percentage 3.8 mg/dL 2.5-4.9 [facility] Work [facility]: Basophils/100 WBC (Bld) 0.8 % 0-1 [facility] Work Phone: Chloride [Moles/Vol] 108 mmol/L 98-107 [facility] Work Phone: Eosinophils/100 WBC (Bld) 2.9 % 0-5 [facility] Work Phone: Glucose [Mass/Vol] 133 mg/dL 74-106 [facility] Work Phone: Comment on above: Fasting Glucose resu lt greater than or equal to 126 mg/dL suggests DIABETES MELLITUS per A.D.A. criteria. Neutrophils (Bld) [#/Vol] 5.3 10*3/uL 2.0-7.7 [facility] Work Phone: Neutrophils/100 WBC (Bld) 61.6 % 47-70 [facility] Work Phone: Potassium [Moles/Vol] 3.8 mmol/L 3.5-5.1 [facility] Work Phone: Sodium [Moles/Vol] 140 mmol/L 136-145 [facility] Work Phone: WBC (Bld) [#/Vol] 8.6 10*3/uL 4.4-11.0 [facility] Work Phone: Bilirubin Test strip Ql (U)o n 06-17-2022 Bilirubin Ql (U) Negative Negative [facility] Work Phone: Blood erythrocytes count (nu mber/volume)on 06-17-2022 RBC (Bld) [#/Vol] 4.46 10*6/uL 4.6-6.2 [facility] Work Phone: Blood hemoglobin measurement (mass/volume)on 06-17-2022 Hemoglobin (Bld) [Mass/Vol] 13.4 g/dL 13.0-16.5 [facility] Work Phone: Blood lymphocytes/100 leukoc yteson 06-17-2022 Lymphocytes/100 WBC (Bld) 23.5 % 19-41 [facility] Work Phone: Blood monocytes/100 leukocyt eson 06-17-2022 Monocytes/100 WBC (Bld) 10.0 % 0-10 [facility] Work Phone: Blood platelet mean volumeon 06-17-2022 Platelet mean volume (Bld) [Entitic vol] 9.6 fL 6.2-12.0 [facility] Work Phone: [phone] Determination of erythrocyte mean corpuscular volume (MCV)on 06-17-2022 MCV (RBC) [Entitic vol] 91.3 fL 80-94 [facility] Work Phone: [phone] Hematocrit Auto (Bld) [Volum e fraction]on 06-17-2022 Hematocrit (Bld) [Volume fraction] 40.7 % 40-54 [facility] Work Phone: [phone] Ketones Test strip Ql (U)on 06-17-2022 Ketones Ql (U) Negative Negative [facility] Work Phone: [phone] Laboratory - Chemistry and C hemistry - challengeon 06-17-2022 CO2 [Moles/Vol] 25.0 mmol/L 21.0-32.0 [facility] Work Phone: [phone] Urea nitrogen/Creatinine [Mass ratio] 12.6 mg/mg 10-20 [facility] Work Phone: Laboratory - Hematology and Cell countson 06-17-2022 Erythrocyte distribution width (RBC) [Entitic vol] 45.5 fL 35.1-43.9 [facility] Work Phone: [phone] Erythrocyte distribution width (RBC) [Ratio] 13.4 % 11.6-14.6 [facility] Work Phone: [phone] Immature granulocytes/100 WBC (Bld) 1.200 % 0.0-0.9 [facility] Work Phone: Comment on above: IG% - Immature Granu locytes (promyelocytes, myelocytes and metamyelocytes) > 1% indicates that a LEFT SHIFT is Present. MCH (RBC) [Entitic mass] 30.0 pg 27.0-32.0 [facility] Work Phone: Nucleated RBC/100 WBC (Bld) [Ratio] 0 % 0-5 [facility] Work Phone: MCHC Auto (RBC) [Mass/Vol]on 06-17-2022 MCHC (RBC) [Mass/Vol] 32.9 g/dL 32-36 [facility] Work Phone: Mucus LM Ql (Urine sed)on Mucus Ql (Urine sed) 0 SEEN /hpf [facility] Work Phone: Nitrite Test strip Ql (U)on 06-17-2022 Nitrite Ql (U) Negative Negative [facility] Work Phone: No Panel Informationon 06-17 Estimated GFR (MDRD) Amer 58 mL/min >60 [facility] Work Phone: Comment on above: GFR Calc Estimated GFR (MDRD) Non-Af Amer 48 mL/min >60 [facility] Work Phone: Comment on above: Non- GFR Calc Platelets bldon 06-17-2022 Platelets (Bld) [#/Vol] 178 10*3/uL 150-450 [facility] Work Phone: Protein Test strip Ql (U)on 06-17-2022 Protein Ql (U) 15 mg/dl Negative [facility] Work Phone: Serum or plasma albumin you urement (mass/volume)on 06-17-2022 Albumin [Mass/Vol] 2.8 g/dL 3.2-5.0 [facility] Work Phone: Serum or plasma calcium you urement (mass/volume)on 06-17-2022 Calcium [Mass/Vol] 8.6 mg/dL 8.5-10.1 [facility] Work Phone: Serum or plasma creatinine m easurement (mass/volume)on 06-17-2022 Creatinine [Mass/Vol] 1.59 mg/dL 0.70-1.30 [facility] Work Phone: Comment on above: The validity of the calculated GFR & GFRAA in patients over 70 years has not been determined. Clinical correlation is essential. Serum or plasma urea nitroge n measurement (mass/volume)on 06-17-2022 Urea nitrogen [Mass/Vol] 20 mg/dL 7-18 [facility] Work Phone: Squamous epithelial cells de tection in urine sediment by light microscopyon 06-17-2022 Epithelial cells.squamous LM Ql (Urine sed) 0-5 SEEN /hpf 0-5 [facility] Work Phone: Urine blood detectionon RBC Ql (U) Negative Negative [facility] Work Phone: RBC Ql (U) 0 SEEN /hpf 0-5 [facility] Work Phone: Urine clarityon 06-17-2022 Clarity (U) Clear Clear [facility] Work Phone: Urine color determinationon 06-17-2022 Color (U) Yellow Yellow [facility] Work Phone: Urine creatinine measurement (mass/volume)on 06-17-2022 Creatinine (U) [Mass/Vol] 118.00 mg/dL NO RANGE EST. [facility] Work Phone: Urine glucose detectionon Glucose Ql (U) Normal mg/dl Normal [facility] Work Phone: Urine leukocyte esterase det ection by dipstickon 06-17-2022 Leukocyte esterase Test strip Ql (U) 100 /ul Negative [facility] Work Phone: Urine pHon 06-17-2022 pH (U) 6.0 [pH] 5.0 - 8.0 [facility] Work Phone: Urine protein measurement (m ass/volume)on 06-17-2022 Protein (U) [Mass/Vol] 22.0 mg/dL 0.0-11.8 [place] Work Phone: [phone] Urine protein/creatinine mas s ratioon 06-17-2022 Protein/Creatinine (U) [Mass ratio] 186 mg/g CRE 0-200 [facility] Work Phone: Urine sediment bacteria coun t by microscopy (number/high power field)on 06-17-2022 Bacteria LM.HPF (Urine sed) [#/Area] 0 /[HPF] None Seen [facility] Work Phone: Urine specific gravity measu rementon 06-17-2022 Specific gravity (U) [Rel density] 1.015 1.002-1.03 0 [facility] Work Phone: Urobilinogen Auto test strip Ql (U)on 06-17-2022 Urobilinogen Ql (U) Normal mg/dl Normal [facility] Work Phone: No Panel Informationon 05-27 [place] Level 0.40 mmol/L 0.60-1.20 [facility] Work Phone: Serum or plasma uric acid me asurement (mass/volume)on 05-27-2022 Urate [Mass/Vol] 6.1 mg/dL 3.5-7.2 [facility] Work Phone: Comment on above: The drugs N-Acetylcy steine and Metamizole may falsely depress this assay. Absolute lymphocyte counton 05-20-2022 Lymphocytes Auto (Unsp spec) [#/Vol] 2.07 10*3/uL 0.83-4.51 [facility] Work Phone: Basophil percentageon 2021 Basophil percentage 3.2 mg/dL 2.5-4.9 [facility] Work Phone: Basophils/100 WBC (Bld) 0.7 % 0-1 [facility] Work Phone: Chloride [Moles/Vol] 108 mmol/L 98-107 [facility] Work Phone: Eosinophils/100 WBC (Bld) 2.5 % 0-5 [facility] Work Phone: Glucose [Mass/Vol] 149 mg/dL 74-106 [facility] Work Phone: [phone] Comment on above: Fasting Glucose resu lt greater than or equal to 126 mg/dL suggests DIABETES MELLITUS per A.D.A. criteria. Neutrophils (Bld) [#/Vol] 6.4 10*3/uL 2.0-7.7 [facility] Work Phone: Neutrophils/100 WBC (Bld) 65.6 % 47-70 [facility] Work Phone: Potassium [Moles/Vol] 3.9 mmol/L 3.5-5.1 [facility] Work Phone: Sodium [Moles/Vol] 140 mmol/L 136-145 [facility] Work Phone: WBC (Bld) [#/Vol] 9.7 10*3/uL 4.4-11.0 [facility] Work Phone: [phone] Basophil percentage 0-5 SEEN /hpf 0-5 [facility] Work Phone: [phone] Bilirubin Test strip Ql (U)o n 05-20-2022 Bilirubin Ql (U) Negative Negative [facility] Work Phone: Blood erythrocytes count (nu mber/volume)on 05-20-2022 RBC (Bld) [#/Vol] 4.36 10*6/uL 4.6-6.2 [facility] Work Phone: Blood hemoglobin measurement (mass/volume)on 05-20-2022 Hemoglobin (Bld) [Mass/Vol] 12.9 g/dL 13.0-16.5 [facility] Work Phone: Blood lymphocytes/100 leukoc yteson 05-20-2022 Lymphocytes/100 WBC (Bld) 21.4 % 19-41 [facility] Work Phone: Blood monocytes/100 leukocyt eson 05-20-2022 Monocytes/100 WBC (Bld) 9.3 % 0-10 [facility] Work Phone: Blood platelet mean volumeon 05-20-2022 Platelet mean volume (Bld) [Entitic vol] 9.6 fL 6.2-12.0 [facility] Work Phone: Determination of erythrocyte mean corpuscular volume (MCV)on 05-20-2022 MCV (RBC) [Entitic vol] 91.5 fL 80-94 [facility] Work Phone: [phone] Hematocrit Auto (Bld) [Volum e fraction]on 05-20-2022 Hematocrit (Bld) [Volume fraction] 39.9 % 40-54 [facility] Work Phone: Ketones Test strip Ql (U)on 05-20-2022 Ketones Ql (U) Negative Negative [facility] Work Phone: Laboratory - Chemistry and C hemistry - challengeon 05-20-2022 CO2 [Moles/Vol] 26.0 mmol/L 21.0-32.0 [facility] Work Phone: Urea nitrogen/Creatinine [Mass ratio] 9.9 mg/mg 10-20 [facility] Work Phone: Laboratory - Hematology and Cell countson 05-20-2022 Erythrocyte distribution width (RBC) [Entitic vol] 45.7 fL 35.1-43.9 [facility] Work Phone: Erythrocyte distribution width (RBC) [Ratio] 13.6 % 11.6-14.6 [facility] Work Phone: [phone] Immature granulocytes/100 WBC (Bld) 0.500 % 0.0-0.9 [facility] Work Phone: Comment on above: IG% - Immature Granu locytes (promyelocytes, myelocytes and metamyelocytes) > 1% indicates that a LEFT SHIFT is Present. MCH (RBC) [Entitic mass] 29.6 pg 27.0-32.0 [facility] Work Phone: Nucleated RBC/100 WBC (Bld) [Ratio] 0 % 0-5 [facility] Work Phone: MCHC Auto (RBC) [Mass/Vol]on 05-20-2022 MCHC (RBC) [Mass/Vol] 32.3 g/dL 32-36 [facility] Work Phone: Mucus LM Ql (Urine sed)on Mucus Ql (Urine sed) 0 SEEN /hpf [facility] Work Phone: Nitrite Test strip Ql (U)on 05-20-2022 Nitrite Ql (U) Negative Negative [facility] Work Phone: No Panel Informationon 05-20 Estimated GFR (MDRD) Amer 53 mL/min >60 [facility] Work Phone: Comment on above: GFR Calc Estimated GFR (MDRD) Non-Af Amer 44 mL/min >60 [facility] Work Phone: Comment on above: Non- GFR Calc Platelets bldon 05-20-2022 Platelets (Bld) [#/Vol] 197 10*3/uL 150-450 [facility] Work Phone: Protein Test strip Ql (U)on 05-20-2022 Protein Ql (U) Negative Negative [facility] Work Phone: Serum or plasma albumin you urement (mass/volume)on 05-20-2022 Albumin [Mass/Vol] 2.7 g/dL 3.2-5.0 [facility] Work Phone: Serum or plasma calcium you urement (mass/volume)on 05-20-2022 Calcium [Mass/Vol] 9.0 mg/dL 8.5-10.1 [facility] Work Phone: Serum or plasma creatinine m easurement (mass/volume)on 05-20-2022 Creatinine [Mass/Vol] 1.71 mg/dL 0.70-1.30 [facility] Work Phone: Comment on above: The validity of the calculated GFR & GFRAA in patients over 70 years has not been determined. Clinical correlation is essential. Serum or plasma urea nitroge n measurement (mass/volume)on 05-20-2022 Urea nitrogen [Mass/Vol] 17 mg/dL 7-18 [facility] Work Phone: Squamous epithelial cells de tection in urine sediment by light microscopyon 05-20-2022 Epithelial cells.squamous LM Ql (Urine sed) 0-5 SEEN /hpf 0-5 [facility] Work Phone: Urine blood detectionon RBC Ql (U) Negative Negative [facility] Work Phone: RBC Ql (U) 0 SEEN /hpf 0-5 [facility] Work Phone: Urine clarityon 05-20-2022 Clarity (U) Clear Clear [facility] Work Phone: Urine color determinationon 05-20-2022 Color (U) Yellow Yellow [facility] Work Phone: Urine creatinine measurement (mass/volume)on 05-20-2022 Creatinine (U) [Mass/Vol] 107.00 mg/dL NO RANGE EST. [facility] Work Phone: Urine glucose detectionon Glucose Ql (U) Normal mg/dl Normal [facility] Work Phone: Urine leukocyte esterase det ection by dipstickon 05-20-2022 Leukocyte esterase Test strip Ql (U) 25 /ul Negative [facility] Work Phone: [phone] Urine pHon 05-20-2022 pH (U) 6.5 [pH] 5.0 - 8.0 [facility] Work Phone: Urine protein measurement (m ass/volume)on 05-20-2022 Protein (U) [Mass/Vol] 17.3 mg/dL 0.0-11.8 [place] Work Phone: Urine protein/creatinine mas s ratioon 05-20-2022 Protein/Creatinine (U) [Mass ratio] 162 mg/g CRE 0-200 [facility] Work Phone: Urine sediment bacteria coun t by microscopy (number/high power field)on 05-20-2022 Bacteria LM.HPF (Urine sed) [#/Area] 0 /[HPF] None Seen [facility] Work Phone: Urine specific gravity measu rementon 05-20-2022 Specific gravity (U) [Rel density] 1.010 1.002-1.03 0 [facility] Work Phone: Urobilinogen Auto test strip Ql (U)on 05-20-2022 Urobilinogen Ql (U) Normal mg/dl Normal [facility] Work Phone: No Panel Informationon 05-05 [facility] Absolute lymphocyte counton 04-27-2022 Lymphocytes Auto (Unsp spec) [#/Vol] 2.36 10*3/uL 0.83-4.51 [facility] Work Phone: Basophil percentageon 2021 Basophil percentage 4.6 mg/dL 2.5-4.9 [facility] Work Phone: Basophils/100 WBC (Bld) 0.3 % 0-1 [facility] Work Phone: Chloride [Moles/Vol] 104 mmol/L 98-107 [facility] Work Phone: Eosinophils/100 WBC (Bld) 0.1 % 0-5 [facility] Work Phone: Glucose [Mass/Vol] 190 mg/dL 74-106 [facility] Work Phone: Comment on above: Fasting Glucose resu lt greater than or equal to 126 mg/dL suggests DIABETES MELLITUS per A.D.A. criteria. Neutrophils (Bld) [#/Vol] 10.5 10*3/uL 2.0-7.7 [facility] Work Phone: Neutrophils/100 WBC (Bld) 72.0 % 47-70 [facility] Work Phone: Potassium [Moles/Vol] 3.8 mmol/L 3.5-5.1 [facility] Work Phone: Sodium [Moles/Vol] 140 mmol/L 136-145 [facility] Work Phone: WBC (Bld) [#/Vol] 14.5 10*3/uL 4.4-11.0 [facility] Work Phone: [phone] Blood erythrocytes count (nu mber/volume)on 04-27-2022 RBC (Bld) [#/Vol] 4.56 10*6/uL 4.6-6.2 [facility] Work Phone: [phone] Blood hemoglobin measurement (mass/volume)on 04-27-2022 Hemoglobin (Bld) [Mass/Vol] 13.4 g/dL 13.0-16.5 [facility] Work Phone: Blood lymphocytes/100 leukoc yteson 04-27-2022 Lymphocytes/100 WBC (Bld) 16.3 % 19-41 [facility] Work Phone: Blood monocytes/100 leukocyt eson 04-27-2022 Monocytes/100 WBC (Bld) 7.6 % 0-10 [facility] Work Phone: Blood platelet mean volumeon 04-27-2022 Platelet mean volume (Bld) [Entitic vol] 9.2 fL 6.2-12.0 [facility] Work Phone: [phone] Determination of erythrocyte mean corpuscular volume (MCV)on 04-27-2022 MCV (RBC) [Entitic vol] 91.0 fL 80-94 [facility] Work Phone: Hematocrit Auto (Bld) [Volum e fraction]on 04-27-2022 Hematocrit (Bld) [Volume fraction] 41.5 % 40-54 [facility] Work Phone: [phone] Laboratory - Chemistry and C hemistry - challengeon 04-27-2022 CO2 [Moles/Vol] 28.0 mmol/L 21.0-32.0 [facility] Work Phone: Urea nitrogen/Creatinine [Mass ratio] 13.4 mg/mg 10-20 [facility] Work Phone: Laboratory - Hematology and Cell countson 04-27-2022 Erythrocyte distribution width (RBC) [Entitic vol] 45.7 fL 35.1-43.9 [facility] Work Phone: Erythrocyte distribution width (RBC) [Ratio] 13.7 % 11.6-14.6 [facility] Work Phone: Immature granulocytes/100 WBC (Bld) 3.700 % 0.0-0.9 [facility] Work Phone: Comment on above: IG% - Immature Granu locytes (promyelocytes, myelocytes and metamyelocytes) > 1% indicates that a LEFT SHIFT is Present. MCH (RBC) [Entitic mass] 29.4 pg 27.0-32.0 [facility] Work Phone: Nucleated RBC/100 WBC (Bld) [Ratio] 0.1 % 0-5 [facility] Work Phone: MCHC Auto (RBC) [Mass/Vol]on 04-27-2022 MCHC (RBC) [Mass/Vol] 32.3 g/dL 32-36 [facility] Work Phone: No Panel Informationon 04-27 Estimated GFR (MDRD) Amer 44 mL/min >60 [facility] Work Phone: Comment on above: GFR Calc Estimated GFR (MDRD) Non-Af Amer 36 mL/min >60 [facility] Work Phone: Comment on above: Non- GFR Calc [place] Level 0.50 mmol/L 0.60-1.20 [facility] Work Phone: Platelets bldon 04-27-2022 Platelets (Bld) [#/Vol] 243 10*3/uL 150-450 [facility] Work Phone: Serum or plasma albumin you urement (mass/volume)on 04-27-2022 Albumin [Mass/Vol] 2.9 g/dL 3.2-5.0 [facility] Work Phone: Serum or plasma calcium you urement (mass/volume)on 04-27-2022 Calcium [Mass/Vol] 9.3 mg/dL 8.5-10.1 [facility] Work Phone: Serum or plasma creatinine m easurement (mass/volume)on 04-27-2022 Creatinine [Mass/Vol] 2.02 mg/dL 0.70-1.30 [facility] Work Phone: Comment on above: The validity of the calculated GFR & GFRAA in patients over 70 years has not been determined. Clinical correlation is essential. Serum or plasma urea nitroge n measurement (mass/volume)on 04-27-2022 Urea nitrogen [Mass/Vol] 27 mg/dL 7-18 [facility] Work Phone: Serum or plasma uric acid me asurement (mass/volume)on 04-27-2022 Urate [Mass/Vol] 6.5 mg/dL 3.5-7.2 [facility] Work Phone: Comment on above: The drugs N-Acetylcy steine and Metamizole may falsely depress this assay. Urine creatinine measurement (mass/volume)on 04-27-2022 Creatinine (U) [Mass/Vol] 69.70 mg/dL NO RANGE EST. [facility] Work Phone: Urine protein measurement (m ass/volume)on 04-27-2022 Protein (U) [Mass/Vol] 10.2 mg/dL 0.0-11.8 [facility] Work Phone: Urine protein/creatinine mas s ratioon 04-27-2022 Protein/Creatinine (U) [Mass ratio] 146 mg/g CRE 0-200 [facility] Work Phone: Basophil percentageon 2021 Basophil percentage 4.2 mg/dL 2.5-4.9 [facility] Work Phone: Chloride [Moles/Vol] 107 mmol/L 98-107 [facility] Work Phone: Glucose [Mass/Vol] 129 mg/dL 74-106 [facility] Work Phone: Comment on above: Fasting Glucose resu lt greater than or equal to 126 mg/dL suggests DIABETES MELLITUS per A.D.A. criteria. Potassium [Moles/Vol] 3.8 mmol/L 3.5-5.1 [facility] Work Phone: Sodium [Moles/Vol] 140 mmol/L 136-145 [facility] Work Phone: Basophil percentage 25-50 SEEN /hpf 0-5 [facility] [facility] Work Phone: Bilirubin Test strip Ql (U)o n 04-22-2022 Bilirubin Ql (U) Negative Negative [facility] Work Phone: Culture, urineon 04-22-2022 Bacteria identified Cx Nom (U) Positive [facility] Work Phone: Ketones Test strip Ql (U)on 04-22-2022 Ketones Ql (U) Negative Negative [facility] Work Phone: Laboratory - Chemistry and C hemistry - challengeon 04-22-2022 CO2 [Moles/Vol] 27.0 mmol/L 21.0-32.0 [facility] Work Phone: Urea nitrogen/Creatinine [Mass ratio] 8.2 mg/mg 10-20 [facility] Work Phone: Mucus LM Ql (Urine sed)on Mucus Ql (Urine sed) 0 SEEN /hpf [facility] Work Phone: Nitrite Test strip Ql (U)on 04-22-2022 Nitrite Ql (U) Negative Negative [facility] Work Phone: No Panel Informationon 04-22 Estimated GFR (MDRD) Amer 53 mL/min >60 [facility] Work Phone: Comment on above: GFR Calc Estimated GFR (MDRD) Non-Af Amer 44 mL/min >60 [facility] Work Phone: Comment on above: Non- GFR Calc Protein Test strip Ql (U)on 04-22-2022 Protein Ql (U) 15 mg/dl Negative [facility] Work Phone: Serum or plasma albumin you urement (mass/volume)on 04-22-2022 Albumin [Mass/Vol] 2.6 g/dL 3.2-5.0 [facility] Work Phone: Serum or plasma calcium you urement (mass/volume)on 04-22-2022 Calcium [Mass/Vol] 9.1 mg/dL 8.5-10.1 [facility] Work Phone: Serum or plasma creatinine m easurement (mass/volume)on 04-22-2022 Creatinine [Mass/Vol] 1.71 mg/dL 0.70-1.30 [facility] Work Phone: Comment on above: The validity of the calculated GFR & GFRAA in patients over 70 years has not been determined. Clinical correlation is essential. Serum or plasma urea nitroge n measurement (mass/volume)on 04-22-2022 Urea nitrogen [Mass/Vol] 14 mg/dL 7-18 [facility] Work Phone: Squamous epithelial cells de tection in urine sediment by light microscopyon 04-22-2022 Epithelial cells.squamous LM Ql (Urine sed) 0-5 SEEN /hpf 0-5 [facility] Work Phone: Urine blood detectionon RBC Ql (U) 10 /ul Negative [facility] Work Phone: RBC Ql (U) 0-5 SEEN /hpf 0-5 [facility] Work Phone: Urine clarityon 04-22-2022 Clarity (U) Clear Clear [facility] Work Phone: Urine color determinationon 04-22-2022 Color (U) Yellow Yellow [facility] Work Phone: Urine creatinine measurement (mass/volume)on 04-22-2022 Creatinine (U) [Mass/Vol] 171.00 mg/dL NO RANGE EST. [facility] Work Phone: Urine glucose detectionon Glucose Ql (U) Normal mg/dl Normal [facility] Work Phone: Urine leukocyte esterase det ection by dipstickon 04-22-2022 Leukocyte esterase Test strip Ql (U) 500 /ul Negative [facility] Work Phone: Urine pHon 04-22-2022 pH (U) 6.0 [pH] 5.0 - 8.0 [facility] Work Phone: Urine protein measurement (m ass/volume)on 04-22-2022 Protein (U) [Mass/Vol] 30.4 mg/dL 0.0-11.8 [place] Work Phone: Urine protein/creatinine mas s ratioon 04-22-2022 Protein/Creatinine (U) [Mass ratio] 178 mg/g CRE 0-200 [facility] Work Phone: Urine sediment bacteria coun t by microscopy (number/high power field)on 04-22-2022 Bacteria LM.HPF (Urine sed) [#/Area] 0 /[HPF] None Seen [facility] Work Phone: Urine specific gravity measu rementon 04-22-2022 Specific gravity (U) [Rel density] 1.015 1.002-1.03 0 [facility] Work Phone: Urobilinogen Auto test strip Ql (U)on 04-22-2022 Urobilinogen Ql (U) Normal mg/dl Normal [facility] Work Phone: Absolute lymphocyte counton 04-21-2022 Lymphocytes Auto (Unsp spec) [#/Vol] 2.19 10*3/uL 0.83-4.51 [facility] Work Phone: Basophil percentageon 2021 Basophils/100 WBC (Bld) 0.6 % 0-1 [facility] Work Phone: Eosinophils/100 WBC (Bld) 2.4 % 0-5 [facility] Work Phone: Neutrophils (Bld) [#/Vol] 5.3 10*3/uL 2.0-7.7 [facility] Work Phone: Neutrophils/100 WBC (Bld) 60.5 % 47-70 [facility] Work Phone: WBC (Bld) [#/Vol] 8.8 10*3/uL 4.4-11.0 [facility] Work Phone: Blood erythrocytes count (nu mber/volume)on 04-21-2022 RBC (Bld) [#/Vol] 4.29 10*6/uL 4.6-6.2 [facility] Work Phone: Blood hemoglobin measurement (mass/volume)on 04-21-2022 Hemoglobin (Bld) [Mass/Vol] 12.9 g/dL 13.0-16.5 [facility] Work Phone: Blood lymphocytes/100 leukoc yteson 04-21-2022 Lymphocytes/100 WBC (Bld) 24.9 % 19-41 [facility] Work Phone: Blood monocytes/100 leukocyt eson 04-21-2022 Monocytes/100 WBC (Bld) 11.4 % 0-10 [facility] Work Phone: Blood platelet mean volumeon 04-21-2022 Platelet mean volume (Bld) [Entitic vol] 9.5 fL 6.2-12.0 [facility] Work Phone: Determination of erythrocyte mean corpuscular volume (MCV)on 04-21-2022 MCV (RBC) [Entitic vol] 92.1 fL 80-94 [facility] Work Phone: Hematocrit Auto (Bld) [Volum e fraction]on 04-21-2022 Hematocrit (Bld) [Volume fraction] 39.5 % 40-54 [facility] Work Phone: Laboratory - Hematology and Cell countson 04-21-2022 Erythrocyte distribution width (RBC) [Entitic vol] 45.9 fL 35.1-43.9 [facility] Work Phone: Erythrocyte distribution width (RBC) [Ratio] 13.5 % 11.6-14.6 [facility] Work Phone: Immature granulocytes/100 WBC (Bld) 0.200 % 0.0-0.9 [facility] Work Phone: Comment on above: IG% - Immature Granu locytes (promyelocytes, myelocytes and metamyelocytes) > 1% indicates that a LEFT SHIFT is Present. MCH (RBC) [Entitic mass] 30.1 pg 27.0-32.0 [facility] Work Phone: Nucleated RBC/100 WBC (Bld) [Ratio] 0 % 0-5 [facility] Work Phone: MCHC Auto (RBC) [Mass/Vol]on 04-21-2022 MCHC (RBC) [Mass/Vol] 32.7 g/dL 32-36 [facility] Work Phone: Platelets bldon 04-21-2022 Platelets (Bld) [#/Vol] 199 10*3/uL 150-450 [facility] Work Phone: Serum or plasma uric acid me asurement (mass/volume)on 04-21-2022 Urate [Mass/Vol] 6.2 mg/dL 3.5-7.2 [facility] Work Phone: Comment on above: The drugs N-Acetylcy steine and Metamizole may falsely depress this assay. Laboratory - Microbiology an d Antimicrobial susceptibilityon 04-06-2022 SARS-CoV-2 (COVID-19) RNA AMANDO+probe Ql (Unsp spec) Detected Not Detect [facility] Work Phone: Comment on above: Normal Reference Ran ge: Not DetectedMethod:(RT-PCR) real-time reverse transcriptase PCRLuminex MORGAN Instrument*The Food and Drug Administration (FDA) has issued an Emergency Use Authorization (EAU) for the MORGAN SARS-CoV-2 Assay for the rapid detection of the virus that causes COVID-19. This test has been validated, but the [facility] review of this validation is pending.*Negative [...] Auto (Unsp spec) [#/Vol] 1.96 10*3/uL 0.83-4.51 [facility] Work Phone: Basophil percentageon 2021 Basophils/100 WBC (Bld) 0.6 % 0-1 [facility] Work Phone: Chloride [Moles/Vol] 103 mmol/L 98-107 [facility] Work Phone: Eosinophils/100 WBC (Bld) 0.6 % 0-5 [facility] Work Phone: Glucose [Mass/Vol] 133 mg/dL 74-106 [facility] Work Phone: Comment on above: Fasting Glucose resu lt greater than or equal to 126 mg/dL suggests DIABETES MELLITUS per A.D.A. criteria. Neutrophils (Bld) [#/Vol] 7.3 10*3/uL 2.0-7.7 [facility] Work Phone: Neutrophils/100 WBC (Bld) 64.6 % 47-70 [facility] Work Phone: Potassium [Moles/Vol] 3.5 mmol/L 3.5-5.1 [facility] Work Phone: Sodium [Moles/Vol] 138 mmol/L 136-145 [facility] Work Phone: WBC (Bld) [#/Vol] 11.3 10*3/uL 4.4-11.0 [facility] Work Phone: Blood erythrocytes count (nu mber/volume)on 04-02-2022 RBC (Bld) [#/Vol] 4.81 10*6/uL 4.6-6.2 [facility]: Blood hemoglobin measurement (mass/volume)on 04-02-2022 Hemoglobin (Bld) [Mass/Vol] 14.4 g/dL 13.0-16.5 [facility] Work Phone: Blood lymphocytes/100 leukoc yteson 04-02-2022 Lymphocytes/100 WBC (Bld) 17.3 % 19-41 [facility] Work Phone: Blood monocytes/100 leukocyt eson 04-02-2022 Monocytes/100 WBC (Bld) 15.7 % 0-10 [facility] Work Phone: Blood platelet mean volumeon 04-02-2022 Platelet mean volume (Bld) [Entitic vol] 10.0 fL 6.2-12.0 [facility] Work Phone: Determination of erythrocyte mean corpuscular volume (MCV)on 04-02-2022 MCV (RBC) [Entitic vol] 91.7 fL 80-94 [facility] Work Phone: Hematocrit Auto (Bld) [Volum e fraction]on 04-02-2022 Hematocrit (Bld) [Volume fraction] 44.1 % 40-54 [facility] Work Phone: [phone] Laboratory - Chemistry and C hemistry - challengeon 04-02-2022 CO2 [Moles/Vol] 26.0 mmol/L 21.0-32.0 [facility] Work Phone: Urea nitrogen/Creatinine [Mass ratio] 14.1 mg/mg 09-02 [facility] Work Phone: Laboratory - Hematology and Cell countson 04-02-2022 Erythrocyte distribution width (RBC) [Entitic vol] 47.8 fL 35.1-43.9 [facility] Work Phone: Erythrocyte distribution width (RBC) [Ratio] 14.0 % 11.6-14.6 [facility] Work Phone: Immature granulocytes/100 WBC (Bld) 1.200 % 0.0-0.9 [facility] Work Phone: Comment on above: IG% - Immature Granu locytes (promyelocytes, myelocytes and metamyelocytes) > 1% indicates that a LEFT SHIFT is Present. MCH (RBC) [Entitic mass] 29.9 pg 27.0-32.0 [facility] Work Phone: Nucleated RBC/100 WBC (Bld) [Ratio] 0 % 0-5 [facility] Work Phone: MCHC Auto (RBC) [Mass/Vol]on 04-02-2022 MCHC (RBC) [Mass/Vol] 32.7 g/dL 32-36 [facility] Work Phone: No Panel Informationon 04-02 Estimated GFR (MDRD) Amer 51 mL/min >60 [facility] Work Phone: Comment on above: GFR Calc Estimated GFR (MDRD) Non-Af Amer 42 mL/min >60 [facility] Work Phone: Comment on above: Non- GFR Calc Platelets bldon 04-02-2022 Platelets (Bld) [#/Vol] 160 10*3/uL 150-450 [facility] Work Phone: Review by pathologiston 03-15 Pathologist review Crispin (Unsp spec) [Interp] Reviewed [facility] Work Phone: Comment on above: Previous reported re sult: Bonnie kincaid Edited by: ETHEL on 04/06/22:912Leukocytosis. Tuan Servin M.D. 04/06/22 AMENDED REPORT 04/06/22912 PATH REV previously reported as: Bonnie kincaid Serum or plasma calcium you urement (mass/volume)on 04-02-2022 Calcium [Mass/Vol] 9.0 mg/dL 8.5-10.1 [facility] Work Phone: Serum or plasma creatinine m easurement (mass/volume)on 04-02-2022 Creatinine [Mass/Vol] 1.77 mg/dL 0.70-1.30 [facility] Work Phone: [phone] Comment on above: The validity of the calculated GFR & GFRAA in patients over 70 years has not been determined. Clinical correlation is essential. Serum or plasma urea nitroge n measurement (mass/volume)on 04-02-2022 Urea nitrogen [Mass/Vol] 25 mg/dL 7-18 [facility] Work Phone: [phone] Thin prep Papanicolaou smear with manual screeningon 04-02-2022 Thin prep Papanicolaou smear with manual screening 9 5-15 [facility] Work Phone: [phone] Absolute lymphocyte counton 03-25-2022 Lymphocytes Auto (Unsp spec) [#/Vol] 2.80 10*3/uL 0.83-4.51 [facility] Work Phone: [phone] Basophil percentageon 2021 Basophil percentage 4.0 mg/dL 2.5-4.9 [facility] Work Phone: Basophils/100 WBC (Bld) 0.6 % 0-1 [facility] Work Phone: [phone] Chloride [Moles/Vol] 106 mmol/L 98-107 [facility] Work Phone: [phone] Eosinophils/100 WBC (Bld) 1.7 % 0-5 [facility] Work Phone: [phone] Glucose [Mass/Vol] 164 mg/dL 74-106 [facility] Work [facility]: [phone] Comment on above: Fasting Glucose resu lt greater than or equal to 126 mg/dL suggests DIABETES MELLITUS per A.D.A. criteria. Neutrophils (Bld) [#/Vol] 5.6 10*3/uL 2.0-7.7 [facility] Work Phone: [phone] Neutrophils/100 WBC (Bld) 56.9 % 47-70 [facility] Work Phone: Potassium [Moles/Vol] 3.8 mmol/L 3.5-5.1 [facility] Work Phone: Sodium [Moles/Vol] 139 mmol/L 136-145 [facility] Work Phone: WBC (Bld) [#/Vol] 9.8 10*3/uL 4.4-11.0 [facility] Work Phone: [phone] Basophil percentage 0-5 SEEN /hpf 0-5 [facility] Work Phone: [phone] Bilirubin Test strip Ql (U)o n 03-25-2022 Bilirubin Ql (U) Negative Negative [facility] Work Phone: [phone] Blood erythrocytes count (nu mber/volume)on 03-25-2022 RBC (Bld) [#/Vol] 4.77 10*6/uL 4.6-6.2 [facility] Work Phone: [phone] Blood hemoglobin measurement (mass/volume)on 03-25-2022 Hemoglobin (Bld) [Mass/Vol] 14.1 g/dL 13.0-16.5 [facility] Work Phone: Blood lymphocytes/100 leukoc yteson 03-25-2022 Lymphocytes/100 WBC (Bld) 28.7 % 19-41 [facility] Work Phone: Blood monocytes/100 leukocyt eson 03-25-2022 Monocytes/100 WBC (Bld) 9.2 % 0-10 [facility] Work Phone: Blood platelet mean volumeon 03-25-2022 Platelet mean volume (Bld) [Entitic vol] 9.3 fL 6.2-12.0 [facility] Work Phone: [phone] Determination of erythrocyte mean corpuscular volume (MCV)on 03-25-2022 MCV (RBC) [Entitic vol] 91.4 fL 80-94 [facility] Work Phone: Hematocrit Auto (Bld) [Volum e fraction]on 03-25-2022 Hematocrit (Bld) [Volume fraction] 43.6 % 40-54 [facility] Work Phone: Ketones Test strip Ql (U)on 03-25-2022 Ketones Ql (U) Negative Negative [facility] Work Phone: Laboratory - Chemistry and C hemistry - challengeon 03-25-2022 CO2 [Moles/Vol] 26.0 mmol/L 21.0-32.0 [facility] Work Phone: Urea nitrogen/Creatinine [Mass ratio] 15.4 mg/mg 10-20 [facility] Work Phone: Laboratory - Hematology and Cell countson 03-25-2022 Erythrocyte distribution width (RBC) [Entitic vol] 45.9 fL 35.1-43.9 [facility] Work Phone: Erythrocyte distribution width (RBC) [Ratio] 13.6 % 11.6-14.6 [facility] Work Phone: Immature granulocytes/100 WBC (Bld) 2.900 % 0.0-0.9 [facility] Work Phone: Comment on above: IG% - Immature Granu locytes (promyelocytes, myelocytes and metamyelocytes) > 1% indicates that a LEFT SHIFT is Present. MCH (RBC) [Entitic mass] 29.6 pg 27.0-32.0 [facility] Work Phone: Nucleated RBC/100 WBC (Bld) [Ratio] 0 % 0-5 [facility] Work Phone: MCHC Auto (RBC) [Mass/Vol]on 03-25-2022 MCHC (RBC) [Mass/Vol] 32.3 g/dL 32-36 [facility] Work Phone: Mucus LM Ql (Urine sed)on Mucus Ql (Urine sed) 0 SEEN /hpf [facility] Work Phone: Nitrite Test strip Ql (U)on 03-25-2022 Nitrite Ql (U) Negative Negative [facility] Work Phone: No Panel Informationon 03-25 Estimated GFR (MDRD) Amer 52 mL/min >60 [facility] Work Phone: Comment on above: GFR Calc Estimated GFR (MDRD) Non-Af Amer 43 mL/min >60 [facility] Work Phone: Comment on above: Non- GFR Calc Platelets bldon 03-25-2022 Platelets (Bld) [#/Vol] 276 10*3/uL 150-450 [facility] Work Phone: Protein Test strip Ql (U)on 03-25-2022 Protein Ql (U) Negative Negative [facility] Work Phone: Serum or plasma albumin you urement (mass/volume)on 03-25-2022 Albumin [Mass/Vol] 2.9 g/dL 3.2-5.0 [facility] Work Phone: Serum or plasma calcium you urement (mass/volume)on 03-25-2022 Calcium [Mass/Vol] 8.7 mg/dL 8.5-10.1 [facility] Work Phone: Serum or plasma creatinine m easurement (mass/volume)on 03-25-2022 Creatinine [Mass/Vol] 1.75 mg/dL 0.70-1.30 [facility] Work Phone: Comment on above: The validity of the calculated GFR & GFRAA in patients over 70 years has not been determined. Clinical correlation is essential. Serum or plasma urea nitroge n measurement (mass/volume)on 03-25-2022 Urea nitrogen [Mass/Vol] 27 mg/dL 7-18 [facility] Work Phone: Squamous epithelial cells de tection in urine sediment by light microscopyon 03-25-2022 Epithelial cells.squamous LM Ql (Urine sed) 0-5 SEEN /hpf 0-5 [facility] Work Phone: Urine blood detectionon 03-14 RBC Ql (U) Negative Negative [facility] Work Phone: RBC Ql (U) 0 SEEN /hpf 0-5 [facility] Work Phone: Urine clarityon 03-25-2022 Clarity (U) Sl. Cloudy Clear [facility] Work Phone: [phone] Urine color determinationon 03-25-2022 Color (U) Yellow Yellow [facility] Work Phone: [phone] Urine creatinine measurement (mass/volume)on 03-25-2022 Creatinine (U) [Mass/Vol] 90.50 mg/dL NO RANGE EST. [facility] Work Phone: Urine glucose detectionon Glucose Ql (U) Normal mg/dl Normal [facility] Work Phone: Urine leukocyte esterase det ection by dipstickon 03-25-2022 Leukocyte esterase Test strip Ql (U) 25 /ul Negative [facility] Work Phone: Urine pHon 03-25-2022 pH (U) 6.0 [pH] 5.0 - 8.0 [facility] Work Phone: [phone] Urine protein measurement (m ass/volume)on 03-25-2022 Protein (U) [Mass/Vol] 15.8 mg/dL 0.0-11.8 [place] Work Phone: [phone] Urine protein/creatinine mas s ratioon 03-25-2022 Protein/Creatinine (U) [Mass ratio] 175 mg/g CRE 0-200 [facility] Work Phone: [phone] Urine sediment bacteria coun t by microscopy (number/high power field)on 03-25-2022 Bacteria LM.HPF (Urine sed) [#/Area] 0 /[HPF] None Seen [facility] Work Phone: [phone] Urine specific gravity measu rementon 03-25-2022 Specific gravity (U) [Rel density] 1.015 1.002-1.03 0 [facility] Work Phone: [phone] Urobilinogen Auto test strip Ql (U)on 03-25-2022 Urobilinogen Ql (U) Normal mg/dl Normal [facility] Work Phone: Serum or plasma uric acid me asurement (mass/volume)on 03-19-2022 Urate [Mass/Vol] 8.3 mg/dL 3.5-7.2 [facility] Work Phone: [phone] Comment on above: The drugs N-Acetylcy steine and Metamizole may falsely depress this assay. Absolute lymphocyte counton 02-25-2022 Lymphocytes Auto (Unsp spec) [#/Vol] 2.27 10*3/uL 0.83-4.51 [facility] Work Phone: Basophil percentageon 2021 Basophil percentage 0 SEEN /hpf 0-5 [facility] Work Phone: Basophil percentage 4.3 mg/dL 2.5-4.9 [facility] Work Phone: Basophils/100 WBC (Bld) 0.3 % 0-1 [facility] Work Phone: Chloride [Moles/Vol] 102 mmol/L 98-107 [facility] Work Phone: Eosinophils/100 WBC (Bld) 0.2 % 0-5 [facility] Work Phone: [phone] Glucose [Mass/Vol] 107 mg/dL 74-106 [facility] Work Phone: [phone] Comment on above: Fasting Glucose resu lt from 100 to 125 mg/dL suggests IMPAIRED HOMEOSTASIS per A.D.A. criteria. Neutrophils (Bld) [#/Vol] 7.8 10*3/uL 2.0-7.7 [facility] Work Phone: Neutrophils/100 WBC (Bld) 67.9 % 47-70 [facility] Work Phone: Potassium [Moles/Vol] 4.1 mmol/L 3.5-5.1 [facility] Work Phone: Comment on above: Moderate Hemolysis, Result may be falsely increased. Sodium [Moles/Vol] 137 mmol/L 136-145 [facility] Work Phone: WBC (Bld) [#/Vol] 11.6 10*3/uL 4.4-11.0 [facility] Work Phone: [phone] Bilirubin Test strip Ql (U)o n 02-25-2022 Bilirubin Ql (U) Negative Negative [facility] Work Phone: [phone] Blood erythrocytes count (nu mber/volume)on 02-25-2022 RBC (Bld) [#/Vol] 4.09 10*6/uL 4.6-6.2 [facility] Work Phone: [phone] Blood hemoglobin measurement (mass/volume)on 02-25-2022 Hemoglobin (Bld) [Mass/Vol] 12.0 g/dL 13.0-16.5 [facility] Work Phone: Blood lymphocytes/100 leukoc yteson 02-25-2022 Lymphocytes/100 WBC (Bld) 19.7 % 19-41 [facility] Work Phone: Blood monocytes/100 leukocyt eson 02-25-2022 Monocytes/100 WBC (Bld) 9.0 % 0-10 [facility] Work Phone: [phone] Blood platelet adequacy dete ction by light microscopyon 02-25-2022 Platelets LM Ql (Bld) ADEQUATE ADEQ [facility] Work Phone: [phone] Blood platelet mean volumeon 02-25-2022 Platelet mean volume (Bld) [Entitic vol] 9.9 fL 6.2-12.0 [facility] Work Phone: Culture, urineon 02-25-2022 Bacteria identified Cx Nom (U) Culture exhibits no growth. [facility] Work Phone: [phone] Determination of erythrocyte mean corpuscular volume (MCV)on 02-25-2022 MCV (RBC) [Entitic vol] 90.2 fL 80-94 [facility] Work Phone: [phone] Hematocrit Auto (Bld) [Volum e fraction]on 02-25-2022 Hematocrit (Bld) [Volume fraction] 36.9 % 40-54 [facility] Work Phone: Ketones Test strip Ql (U)on 02-25-2022 Ketones Ql (U) Negative Negative [facility] Work Phone: Laboratory - Chemistry and C hemistry - challengeon 02-25-2022 CO2 [Moles/Vol] 26.0 mmol/L 21.0-32.0 [facility] Work Phone: Urea nitrogen/Creatinine [Mass ratio] 18.6 mg/mg 10-20 [facility] Work Phone: Laboratory - Hematology and Cell countson 02-25-2022 Erythrocyte distribution width (RBC) [Entitic vol] 46.8 fL 35.1-43.9 [facility] Work Phone: Erythrocyte distribution width (RBC) [Ratio] 14.1 % 11.6-14.6 [facility] Work Phone: Immature granulocytes/100 WBC (Bld) 2.900 % 0.0-0.9 [facility] Work Phone: Comment on above: IG% - Immature Granu locytes (promyelocytes, myelocytes and metamyelocytes) > 1% indicates that a LEFT SHIFT is Present. MCH (RBC) [Entitic mass] 29.3 pg 27.0-32.0 [facility] Work Phone: Nucleated RBC/100 WBC (Bld) [Ratio] 0 % 0-5 [facility] Work Phone: MCHC Auto (RBC) [Mass/Vol]on 02-25-2022 MCHC (RBC) [Mass/Vol] 32.5 g/dL 32-36 [facility] Work Phone: Mucus LM Ql (Urine sed)on Mucus Ql (Urine sed) 0 SEEN /hpf [facility] Work Phone: Nitrite Test strip Ql (U)on 02-25-2022 Nitrite Ql (U) Negative Negative [facility] Work Phone: No Panel Informationon 02-25 Estimated GFR (MDRD) Amer 43 mL/min >60 [facility] Work Phone: Comment on above: GFR Calc Estimated GFR (MDRD) Non-Af Amer 36 mL/min >60 [facility] Work Phone: Comment on above: Non- GFR Calc [place] Level 0.50 mmol/L 0.60-1.20 [facility] Work Phone: Platelets bldon 02-25-2022 Platelets (Bld) [#/Vol] TNP [facility] Work Phone: Comment on above: Test not performedPl ease note: For this sample, a platelet estimate is provided rather than a platelet count due to platelet clumping. Other parameters associated with this sample are not affected by platelet clumping. If a more accurate platelet count is required, a redraw of the patient will be necessary.Previous reported result: 202 [id number] by: MSTNIKOLE on 02/25/22:1032 AMENDED REPORT 02/25/22 1032 PLT previously reported as: 202 [id number] Protein Test strip Ql (U)on 02-25-2022 Protein Ql (U) Negative Negative [facility] Work Phone: Serum or plasma albumin you urement (mass/volume)on 02-25-2022 Albumin [Mass/Vol] 3.2 g/dL 3.2-5.0 [facility] Work Phone: Serum or plasma calcium you urement (mass/volume)on 02-25-2022 Calcium [Mass/Vol] 8.4 mg/dL 8.5-10.1 [facility] Work Phone: Serum or plasma creatinine m easurement (mass/volume)on 02-25-2022 Creatinine [Mass/Vol] 2.04 mg/dL 0.70-1.30 [facility] Work Phone: Comment on above: The validity of the calculated GFR & GFRAA in patients over 70 years has not been determined. Clinical correlation is essential. Serum or plasma urea nitroge n measurement (mass/volume)on 02-25-2022 Urea nitrogen [Mass/Vol] 38 mg/dL 7-18 [facility] Work Phone: Serum or plasma uric acid me asurement (mass/volume)on 02-25-2022 Urate [Mass/Vol] 7.8 mg/dL 3.5-7.2 [facility] Work Phone: [phone] Comment on above: The drugs N-Acetylcy steine and Metamizole may falsely depress this assay. Squamous epithelial cells de tection in urine sediment by light microscopyon 02-25-2022 Epithelial cells.squamous LM Ql (Urine sed) 0 SEEN /hpf 0-5 [facility] Work Phone: [phone] Urine blood detectionon 02-12 RBC Ql (U) Negative Negative [facility] Work Phone: [phone] RBC Ql (U) 0 SEEN /hpf 0-5 [facility] Work Phone: Urine clarityon 02-25-2022 Clarity (U) Clear Clear [facility] Work Phone: Urine color determinationon 02-25-2022 Color (U) Yellow Yellow [facility] Work Phone: [phone] Urine creatinine measurement (mass/volume)on 02-25-2022 Creatinine (U) [Mass/Vol] 82.80 mg/dL NO RANGE EST. [facility] Work Phone: Urine glucose detectionon Glucose Ql (U) Normal mg/dl Normal [facility] Work Phone: [phone] Urine leukocyte esterase det ection by dipstickon 02-25-2022 Leukocyte esterase Test strip Ql (U) 25 /ul Negative [facility] Work Phone: Urine pHon 02-25-2022 pH (U) 6.0 [pH] 5.0 - 8.0 [facility] Work Phone: [phone] Urine protein measurement (m ass/volume)on 02-25-2022 Protein (U) [Mass/Vol] 13.8 mg/dL 0.0-11.8 [place] Work Phone: [phone] Urine protein/creatinine mas s ratioon 02-25-2022 Protein/Creatinine (U) [Mass ratio] 167 mg/g CRE 0-200 [facility] Work Phone: Urine sediment bacteria coun t by microscopy (number/high power field)on 02-25-2022 Bacteria LM.HPF (Urine sed) [#/Area] 0 /[HPF] None Seen [facility] Work Phone: Urine specific gravity measu rementon 02-25-2022 Specific gravity (U) [Rel density] 1.020 1.002-1.03 0 [facility] Work Phone: [phone] Urobilinogen Auto test strip Ql (U)on 02-25-2022 Urobilinogen Ql (U) Normal mg/dl Normal [facility] Work Phone: Basophil percentageon 2021 Chloride [Moles/Vol] 110 mmol/L 98-107 [facility] Work Phone: Glucose [Mass/Vol] 125 mg/dL 74-106 [facility] Work Phone: Comment on above: Fasting Glucose resu lt from 100 to 125 mg/dL suggests IMPAIRED HOMEOSTASIS per A.D.A. criteria. Potassium [Moles/Vol] 4.1 mmol/L 3.5-5.1 [facility] Work Phone: Sodium [Moles/Vol] 139 mmol/L 136-145 [facility] Work Phone: Erythrocyte sedimentation ra meredith 02-18-2022 ESR (Bld) [Velocity] 12 mm/h 0-20 [facility] Work Phone: Laboratory - Chemistry and C hemistry - challengeon 02-18-2022 CO2 [Moles/Vol] 24.0 mmol/L 21.0-32.0 [facility] Work Phone: [phone] Urea nitrogen/Creatinine [Mass ratio] 11.8 mg/mg 10-20 [facility] Work Phone: No Panel Informationon 02-18 Estimated GFR (MDRD) Amer 48 mL/min >60 [facility] Work Phone: Comment on above: GFR Calc Estimated GFR (MDRD) Non-Af Amer 40 mL/min >60 [facility] Work Phone: Comment on above: Non- GFR Calc Serum or plasma calcium you urement (mass/volume)on 02-18-2022 Calcium [Mass/Vol] 8.7 mg/dL 8.5-10.1 [facility] Work Phone: Serum or plasma creatinine m easurement (mass/volume)on 02-18-2022 Creatinine [Mass/Vol] 1.86 mg/dL 0.70-1.30 [facility] Work Phone: Comment on above: The validity of the calculated GFR & GFRAA in patients over 70 years has not been determined. Clinical correlation is essential. Serum or plasma urea nitroge n measurement (mass/volume)on 02-18-2022 Urea nitrogen [Mass/Vol] 22 mg/dL 7-18 [facility] Work Phone: Serum or plasma uric acid me asurement (mass/volume)on 02-18-2022 Urate [Mass/Vol] 7.2 mg/dL 3.5-7.2 [facility] Work Phone: Comment on above: The drugs N-Acetylcy steine and Metamizole may falsely depress this assay. Thin prep Papanicolaou smear with manual screeningon 02-18-2022 Thin prep Papanicolaou smear with manual screening 5 5-15 [facility] Work Phone: Absolute lymphocyte counton 01-28-2022 Lymphocytes Auto (Unsp spec) [#/Vol] 1.90 10*3/uL 0.83-4.51 [facility] Work Phone: Basophil percentageon 2021 Basophil percentage 0 SEEN /hpf 0-5 [facility] Work Phone: Basophil percentage 2.7 mg/dL 2.5-4.9 [facility] Work [facility]: Basophils/100 WBC (Bld) 0.5 % 0-1 [facility] Work Phone: Chloride [Moles/Vol] 110 mmol/L 98-107 [facility] Work Phone: Eosinophils/100 WBC (Bld) 0.4 % 0-5 [facility] Work Phone: Glucose [Mass/Vol] 129 mg/dL 74-106 [facility] Work Phone: Comment on above: Fasting Glucose resu lt greater than or equal to 126 mg/dL suggests DIABETES MELLITUS per A.D.A. criteria. Neutrophils (Bld) [#/Vol] 8.0 10*3/uL 2.0-7.7 [facility] Work Phone: Neutrophils/100 WBC (Bld) 70.6 % 47-70 [facility] Work Phone: Potassium [Moles/Vol] 3.8 mmol/L 3.5-5.1 [facility] Work Phone: Sodium [Moles/Vol] 141 mmol/L 136-145 [facility] Work Phone: WBC (Bld) [#/Vol] 11.3 10*3/uL 4.4-11.0 [facility] Work Phone: [phone] Bilirubin Test strip Ql (U)o n 01-28-2022 Bilirubin Ql (U) Negative Negative [facility] Work Phone: Blood erythrocytes count (nu mber/volume)on 01-28-2022 RBC (Bld) [#/Vol] 4.23 10*6/uL 4.6-6.2 [facility] Work Phone: Blood hemoglobin measurement (mass/volume)on 01-28-2022 Hemoglobin (Bld) [Mass/Vol] 12.6 g/dL 13.0-16.5 [facility] Work Phone: Blood lymphocytes/100 leukoc yteson 01-28-2022 Lymphocytes/100 WBC (Bld) 16.8 % 19-41 [facility] Work Phone: Blood monocytes/100 leukocyt eson 01-28-2022 Monocytes/100 WBC (Bld) 10.0 % 0-10 [facility] Work Phone: [phone] Blood platelet mean volumeon 01-28-2022 Platelet mean volume (Bld) [Entitic vol] 9.3 fL 6.2-12.0 [facility] Work Phone: Determination of erythrocyte mean corpuscular volume (MCV)on 01-28-2022 MCV (RBC) [Entitic vol] 91.3 fL 80-94 [facility] Work Phone: [phone] Hematocrit Auto (Bld) [Volum e fraction]on 01-28-2022 Hematocrit (Bld) [Volume fraction] 38.6 % 40-54 [facility] Work Phone: Ketones Test strip Ql (U)on 01-28-2022 Ketones Ql (U) Negative Negative [facility] Work Phone: Laboratory - Chemistry and C hemistry - challengeon 01-28-2022 CO2 [Moles/Vol] 25.0 mmol/L 21.0-32.0 [facility] Work Phone: Urea nitrogen/Creatinine [Mass ratio] 14.7 mg/mg 10-20 [facility] Work Phone: Laboratory - Hematology and Cell countson 01-28-2022 Erythrocyte distribution width (RBC) [Entitic vol] 45.7 fL 35.1-43.9 [facility] Work Phone: [phone] Erythrocyte distribution width (RBC) [Ratio] 13.7 % 11.6-14.6 [facility] Work Phone: [phone] Immature granulocytes/100 WBC (Bld) 1.700 % 0.0-0.9 [facility] Work Phone: Comment on above: IG% - Immature Granu locytes (promyelocytes, myelocytes and metamyelocytes) > 1% indicates that a LEFT SHIFT is Present. MCH (RBC) [Entitic mass] 29.8 pg 27.0-32.0 [facility] Work Phone: Nucleated RBC/100 WBC (Bld) [Ratio] 0 % 0-5 [facility] Work Phone: MCHC Auto (RBC) [Mass/Vol]on 01-28-2022 MCHC (RBC) [Mass/Vol] 32.6 g/dL 32-36 [facility] Work Phone: Mucus LM Ql (Urine sed)on Mucus Ql (Urine sed) 0 SEEN /hpf [facility] Work Phone: Nitrite Test strip Ql (U)on 01-28-2022 Nitrite Ql (U) Negative Negative [facility] Work Phone: No Panel Informationon 01-28 Urine Microalbumin/Creatinine Ratio 77.0 mg/g CRE <30 [facility] Work Phone: Estimated GFR (MDRD) Amer 56 mL/min >60 [facility] Work Phone: Comment on above: GFR Calc Estimated GFR (MDRD) Non-Af Amer 46 mL/min >60 [facility] Work Phone: Comment on above: Non- GFR Calc Platelets bldon 01-28-2022 Platelets (Bld) [#/Vol] 240 10*3/uL 150-450 [facility] Work Phone: Protein Test strip Ql (U)on 01-28-2022 Protein Ql (U) Negative Negative [facility] Work Phone: Serum or plasma albumin you urement (mass/volume)on 01-28-2022 Albumin [Mass/Vol] 3.2 g/dL 3.2-5.0 [facility] Work Phone: Serum or plasma calcium you urement (mass/volume)on 01-28-2022 Calcium [Mass/Vol] 8.4 mg/dL 8.5-10.1 [facility] Work Phone: Serum or plasma creatinine m easurement (mass/volume)on 01-28-2022 Creatinine [Mass/Vol] 1.63 mg/dL 0.70-1.30 [facility] Work Phone: Comment on above: The validity of the calculated GFR & GFRAA in patients over 70 years has not been determined. Clinical correlation is essential. Serum or plasma urea nitroge n measurement (mass/volume)on 01-28-2022 Urea nitrogen [Mass/Vol] 24 mg/dL 7-18 [facility] Work Phone: Squamous epithelial cells de tection in urine sediment by light microscopyon 01-28-2022 Epithelial cells.squamous LM Ql (Urine sed) 0-5 SEEN /hpf 0-5 [facility] Work Phone: Thin prep Papanicolaou smear with manual screeningon 01-28-2022 Thin prep Papanicolaou smear with manual screening 28.5 mg/L NO RANGE EST. [facility] Work Phone: Urine blood detectionon 01-12 RBC Ql (U) Negative Negative [facility] Work Phone: RBC Ql (U) 0 SEEN /hpf 0-5 [facility] Work Phone: Urine clarityon 01-28-2022 Clarity (U) Sl. Cloudy Clear [facility] Work Phone: Urine color determinationon 01-28-2022 Color (U) Yellow Yellow [facility] Work Phone: Urine creatinine measurement (mass/volume)on 01-28-2022 Creatinine (U) [Mass/Vol] 37.00 mg/dL NO RANGE EST. [facility] Work Phone: Urine glucose detectionon Glucose Ql (U) Normal mg/dl Normal [facility] Work Phone: Urine leukocyte esterase det ection by dipstickon 01-28-2022 Leukocyte esterase Test strip Ql (U) Negative Negative [facility] Work Phone: Urine pHon 01-28-2022 pH (U) 7.0 [pH] 5.0 - 8.0 [facility] Work Phone: Urine sediment bacteria coun t by microscopy (number/high power field)on 01-28-2022 Bacteria LM.HPF (Urine sed) [#/Area] 0 /[HPF] None Seen [facility] Work Phone: Urine specific gravity measu rementon 01-28-2022 Specific gravity (U) [Rel density] 1.010 1.002-1.03 0 [facility] Work Phone: Urobilinogen Auto test strip Ql (U)on 01-28-2022 Urobilinogen Ql (U) Normal mg/dl Normal [facility] Work Phone: No Panel Informationon 01-25 [place] Level 0.50 mmol/L 0.60-1.20 [facility] Work Phone: Basophil percentageon 2021 Cholesterol [Mass/Vol] 140 mg/dL <200 [place] Work Phone: Comment on above: <200 mg/dL Desirable 200-240 mg/dL Borderline >240 mg/dL High Risk Triglyceride [Mass/Vol] 247 mg/dL <199 [facility] Work Phone: Comment on above: The drugs N-Acetylcy steine and Metamizole may falsely depress this assay.Serum Triglycerides Reference Interval Normal <150 mg/dL Borderline high 150 - 199 mg/dL High 200 - 499 mg/dL Very High > or = 500 mg/dL No Panel Informationon 01-04 [place] Level 0.50 mmol/L 0.60-1.20 [facility] Work Phone: Serum or plasma cholesterol in HDL measurement (mass/volume)on 01-04-2022 Cholesterol in HDL [Mass/Vol] 34 mg/dL >40 [facility] Work Phone: Comment on above: The drugs N-Acetylcy steine and Metamizole may falsely depress this assay. Reference Range HDL <40 mg/dL Low HDL Cholesterol HDL >or= 60 mg/dL High HDL Cholesterol Serum or plasma cholesterol in VLDL measurement (mass/volume)on 01-04-2022 Cholesterol in VLDL [Mass/Vol] 49 mg/dL 5-40 [facility] Work Phone: [phone] Serum or plasma low density lipoprotein (LDL) cholesterol measurement (mass/volume)on 01-04-2022 Cholesterol in LDL [Mass/Vol] 57 mg/dL 0-130 [facility] Work Phone: [phone] No Panel Informationon 12-07 [place] Level 0.50 mmol/L 0.60-1.20 [facility] Work Phone: [phone] Absolute lymphocyte counton 12-03-2021 Lymphocytes Auto (Unsp spec) [#/Vol] 2.02 10*3/uL 0.83-4.51 [facility] Work Phone: [phone] Basophil percentageon 2021 Basophils/100 WBC (Bld) 1.1 % 0-1 [facility] Work Phone: [phone] Chloride [Moles/Vol] 108 mmol/L 98-107 [facility] Work Phone: [phone] Eosinophils/100 WBC (Bld) 2.9 % 0-5 [facility] Work Phone: [phone] Glucose [Mass/Vol] 118 mg/dL 74-106 [facility] Work Phone: [phone] Comment on above: Fasting Glucose resu lt from 100 to 125 mg/dL suggests IMPAIRED HOMEOSTASIS per A.D.A. criteria. Neutrophils (Bld) [#/Vol] 4.3 10*3/uL 2.0-7.7 [facility] Work Phone: Neutrophils/100 WBC (Bld) 57.2 % 47-70 [facility] Work Phone: Potassium [Moles/Vol] 3.9 mmol/L 3.5-5.1 [facility] Work Phone: Sodium [Moles/Vol] 140 mmol/L 136-145 [facility] Work Phone: [phone] WBC (Bld) [#/Vol] 7.5 10*3/uL 4.4-11.0 [facility] Work Phone: Bilirubin Test strip Ql (U)o n 12-03-2021 Bilirubin Ql (U) Negative Negative [facility] Work Phone: Blood erythrocytes count (nu mber/volume)on 12-03-2021 RBC (Bld) [#/Vol] 4.70 10*6/uL 4.6-6.2 [facility] Work Phone: Blood hemoglobin measurement (mass/volume)on 12-03-2021 Hemoglobin (Bld) [Mass/Vol] 13.7 g/dL 13.0-16.5 [facility] Work Phone: [phone] Blood lymphocytes/100 leukoc yteson 12-03-2021 Lymphocytes/100 WBC (Bld) 27.1 % 19-41 [facility] Work Phone: [phone] Blood monocytes/100 leukocyt eson 12-03-2021 Monocytes/100 WBC (Bld) 11.0 % 0-10 [facility] Work Phone: Blood platelet mean volumeon 12-03-2021 Platelet mean volume (Bld) [Entitic vol] 9.1 fL 6.2-12.0 [facility] Work Phone: Culture, urineon 12-03-2021 Bacteria identified Cx Nom (U) Culture exhibits no growth. [facility] Work Phone: Determination of erythrocyte mean corpuscular volume (MCV)on 12-03-2021 MCV (RBC) [Entitic vol] 88.9 fL 80-94 [facility] Work Phone: Hematocrit Auto (Bld) [Volum e fraction]on 12-03-2021 Hematocrit (Bld) [Volume fraction] 41.8 % 40-54 [facility] Work Phone: Ketones Test strip Ql (U)on 12-03-2021 Ketones Ql (U) Negative Negative [facility] Work Phone: Laboratory - Chemistry and C hemistry - challengeon 12-03-2021 CO2 [Moles/Vol] 27.0 mmol/L 21.0-32.0 [facility] Work Phone: Urea nitrogen/Creatinine [Mass ratio] 9.7 mg/mg 10-20 [facility] Work Phone: Laboratory - Hematology and Cell countson 12-03-2021 Erythrocyte distribution width (RBC) [Entitic vol] 43.4 fL 35.1-43.9 [facility] Work Phone: Erythrocyte distribution width (RBC) [Ratio] 13.2 % 11.6-14.6 [facility] Work Phone: Immature granulocytes/100 WBC (Bld) 0.700 % 0.0-0.9 [facility] Work Phone: Comment on above: IG% - Immature Granu locytes (promyelocytes, myelocytes and metamyelocytes) > 1% indicates that a LEFT SHIFT is Present. MCH (RBC) [Entitic mass] 29.1 pg 27.0-32.0 [facility] Work Phone: Nucleated RBC/100 WBC (Bld) [Ratio] 0 % 0-5 [facility] Work Phone: MCHC Auto (RBC) [Mass/Vol]on 12-03-2021 MCHC (RBC) [Mass/Vol] 32.8 g/dL 32-36 [facility] Work Phone: Nitrite Test strip Ql (U)on 12-03-2021 Nitrite Ql (U) Negative Negative [facility] Work Phone: No Panel Informationon 12-03 Estimated GFR (MDRD) Amer 43 mL/min >60 [facility] Work Phone: Comment on above: GFR Calc Estimated GFR (MDRD) Non-Af Amer 35 mL/min >60 [facility] Work Phone: Comment on above: Non- GFR Calc [place] Level 0.50 mmol/L 0.60-1.20 [facility] Work Phone: Platelets bldon 12-03-2021 Platelets (Bld) [#/Vol] 230 10*3/uL 150-450 [facility] Work Phone: Protein Test strip Ql (U)on 12-03-2021 Protein Ql (U) Negative Negative [facility] Work Phone: Serum or plasma calcium you urement (mass/volume)on 12-03-2021 Calcium [Mass/Vol] 8.9 mg/dL 8.5-10.1 [facility] Work Phone: Serum or plasma creatinine m easurement (mass/volume)on 12-03-2021 Creatinine [Mass/Vol] 2.07 mg/dL 0.70-1.30 [facility] Work Phone: Comment on above: The validity of the calculated GFR & GFRAA in patients over 70 years has not been determined. Clinical correlation is essential. Serum or plasma urea nitroge n measurement (mass/volume)on 12-03-2021 Urea nitrogen [Mass/Vol] 20 mg/dL 7-18 [facility] Work Phone: Thin prep Papanicolaou smear with manual screeningon 12-03-2021 Thin prep Papanicolaou smear with manual screening 5 5-15 [facility] Work Phone: Urine blood detectionon 11-15 RBC Ql (U) Negative Negative [facility] Work Phone: Urine clarityon 12-03-2021 Clarity (U) Clear Clear [facility] Work Phone: Urine color determinationon 12-03-2021 Color (U) Yellow Yellow [facility] Work Phone: Urine glucose detectionon Glucose Ql (U) Normal mg/dl Normal [facility] Work Phone: Urine leukocyte esterase det ection by dipstickon 12-03-2021 Leukocyte esterase Test strip Ql (U) Negative Negative [facility] Work Phone: [phone] Urine pHon 12-03-2021 pH (U) 7.0 [pH] [facility] Work Phone: Urine specific gravity measu rementon 12-03-2021 Specific gravity (U) [Rel density] 1.010 [facility] Work Phone: Urobilinogen Auto test strip Ql (U)on 12-03-2021 Urobilinogen Ql (U) Normal mg/dl Normal [facility] Work Phone: No Panel Informationon 11-09 [place] Level 0.40 mmol/L 0.60-1.20 [facility] Work Phone: Absolute lymphocyte counton 11-05-2021 Lymphocytes Auto (Unsp spec) [#/Vol] 2.12 10*3/uL 0.83-4.51 [facility] Work Phone: Basophil percentageon 2020 Chloride [Moles/Vol] 110 mmol/L 98-107 [facility] Work Phone: [phone] Eosinophils/100 WBC (Bld) 2.8 % 0-5 [facility] Work Phone: Glucose [Mass/Vol] 132 mg/dL 74-106 [facility] Work Phone: Comment on above: Fasting Glucose resu lt greater than or equal to 126 mg/dL suggests DIABETES MELLITUS per A.D.A. criteria.Please note revised GLUCOSE reference range effective 2017. Neutrophils (Bld) [#/Vol] 5.7 10*3/uL 2.0-7.7 [facility] Work Phone: Potassium [Moles/Vol] 4.0 mmol/L 3.5-5.1 [facility] Work Phone: [phone] Sodium [Moles/Vol] 143 mmol/L 136-145 [facility] Work Phone: [phone] WBC (Bld) [#/Vol] 9.3 10*3/uL 4.4-11.0 [facility] Work Phone: [phone] Basophil percentage 10-25 SEEN /hpf [facility] Work Phone: Bilirubin Test strip Ql (U)o n 12-23-2021 Bilirubin Ql (U) Negative Negative [facility] Work Phone: Blood erythrocytes count (nu mber/volume)on 11-05-2021 RBC (Bld) [#/Vol] 4.57 10*6/uL 4.6-6.2 [facility] Work Phone: [phone] Blood hemoglobin measurement (mass/volume)on 11-05-2021 Hemoglobin (Bld) [Mass/Vol] 13.4 g/dL 13.0-16.5 [facility] Work Phone: Blood lymphocytes/100 leukoc yteson 11-05-2021 Lymphocytes/100 WBC (Bld) 22.9 % 19-41 [facility] Work Phone: Blood monocytes/100 leukocyt eson 11-05-2021 Monocytes/100 WBC (Bld) 10.9 % 0-10 [facility] Work Phone: [phone] Blood platelet mean volumeon 11-05-2021 Platelet mean volume (Bld) [Entitic vol] 9.1 fL 6.2-12.0 [facility] Work Phone: Culture, urineon 11-05-2021 Bacteria identified Cx Nom (U) Streptococcus mitis/ oralis [facility] Work Phone: [phone] Determination of erythrocyte mean corpuscular volume (MCV)on 11-05-2021 MCV (RBC) [Entitic vol] 89.5 fL 80-94 [facility] Work Phone: [phone] Hematocrit Auto (Bld) [Volum e fraction]on 11-05-2021 Hematocrit (Bld) [Volume fraction] 40.9 % 40-54 [facility] Work Phone: Ketones Test strip Ql (U)on 11-05-2021 Ketones Ql (U) Negative Negative [facility] Work Phone: Laboratory - Chemistry and C hemistry - challengeon 11-05-2021 CO2 [Moles/Vol] 28.0 mmol/L 21.0-32.0 [facility] Work Phone: Urea nitrogen/Creatinine [Mass ratio] 11.6 mg/mg 10-20 [facility] Work Phone: Laboratory - Hematology and Cell countson 11-05-2021 Basophils/100 WBC (Unsp spec) 0.9 % 0-1 [facility] Work Phone: [phone] Erythrocyte distribution width (RBC) [Entitic vol] 43.5 fL 35.1-43.9 [facility] Work Phone: [phone] Erythrocyte distribution width (RBC) [Ratio] 13.3 % 11.6-14.6 [facility] Work Phone: [phone] Immature granulocytes/100 WBC (Bld) 0.600 % 0.0-0.9 [facility] Work Phone: Comment on above: IG% - Immature Granu locytes (promyelocytes, myelocytes and metamyelocytes) > 1% indicates that a LEFT SHIFT is Present. MCH (RBC) [Entitic mass] 29.3 pg 27.0-32.0 [facility] Work Phone: [phone] Neutrophils/100 WBC (Bld) 61.9 % 47-70 [facility] Work Phone: [phone] Nucleated RBC/100 WBC (Bld) [Ratio] 0 % 0-5 [facility] Work Phone: MCHC Auto (RBC) [Mass/Vol]on 11-05-2021 MCHC (RBC) [Mass/Vol] 32.8 g/dL 32-36 [facility] Work Phone: Mucus LM Ql (Urine sed)on Mucus Ql (Urine sed) 0 SEEN /hpf [facility] Work Phone: Nitrite Test strip Ql (U)on 11-05-2021 Nitrite Ql (U) Negative Negative [facility] Work Phone: No Panel Informationon 11-05 Estimated GFR (MDRD) Amer 47 mL/min >60 [facility] Work Phone: Comment on above: GFR Calc Estimated GFR (MDRD) Non-Af Amer 39 mL/min >60 [facility] Work Phone: Comment on above: Non- GFR Calc Platelets bldon 11-05-2021 Platelets (Bld) [#/Vol] 218 10*3/uL 150-450 [facility] Work Phone: Protein Test strip Ql (U)on 11-05-2021 Protein Ql (U) 15 mg/dl Negative [facility] Work Phone: Serum or plasma albumin you urement (mass/volume)on 11-05-2021 Albumin [Mass/Vol] 2.7 g/dL 3.2-5.0 [facility] Work Phone: Serum or plasma calcium yuo urement (mass/volume)on 11-05-2021 Calcium [Mass/Vol] 8.7 mg/dL 8.5-10.1 [facility] Work Phone: Serum or plasma creatinine m easurement (mass/volume)on 11-05-2021 Creatinine [Mass/Vol] 1.90 mg/dL 0.70-1.30 [facility] Work Phone: Comment on above: The validity of the calculated GFR & GFRAA in patients over 70 years has not been determined. Clinical correlation is essential. Serum or plasma urea nitroge n measurement (mass/volume)on 11-05-2021 Urea nitrogen [Mass/Vol] 22 mg/dL 7-18 [facility] Work Phone: Squamous epithelial cells de tection in urine sediment by light microscopyon 11-05-2021 Epithelial cells.squamous LM Ql (Urine sed) 0-5 SEEN /hpf [facility] Work Phone: Thin prep Papanicolaou smear with manual screeningon 11-05-2021 Thin prep Papanicolaou smear with manual screening 5 5-15 [facility] Work Phone: Urine blood detectionon 10-15 RBC Ql (U) Negative Negative [facility] Work Phone: RBC Ql (U) 0 SEEN /hpf [facility] Work Phone: Urine clarityon 11-05-2021 Clarity (U) Sl. Cloudy Clear [facility] Work Phone: Urine color determinationon 11-05-2021 Color (U) Yellow Yellow [facility] Work Phone: Urine creatinine measurement (mass/volume)on 11-05-2021 Creatinine (U) [Mass/Vol] 169.00 mg/dL NO RANGE EST. [facility] Work Phone: [phone] Urine glucose detectionon Glucose Ql (U) Normal mg/dl Normal [facility] Work Phone: [phone] Urine leukocyte esterase det ection by dipstickon 11-05-2021 Leukocyte esterase Test strip Ql (U) 100 /ul Negative [facility] Work Phone: Urine pHon 11-05-2021 pH (U) 6.0 [pH] [facility] Work Phone: Urine protein measurement (m ass/volume)on 11-05-2021 Protein (U) [Mass/Vol] 21.0 mg/dL 0.0-11.8 [place] Work Phone: Urine protein/creatinine mas s ratioon 11-05-2021 Protein/Creatinine (U) [Mass ratio] 124 mg/g CRE 0-200 [facility] Work Phone: Urine sediment bacteria coun t by microscopy (number/high power field)on 11-05-2021 Bacteria LM.HPF (Urine sed) [#/Area] 0 /[HPF] None Seen [facility] Work Phone: Urine specific gravity measu rementon 11-05-2021 Specific gravity (U) [Rel density] 1.020 [facility] Work Phone: [phone] Urobilinogen Auto test strip Ql (U)on 11-05-2021 Urobilinogen Ql (U) Normal mg/dl Normal [facility] Work Phone: CBC Auto Differentialon 10-15 Erythrocyte distribution width (RBC) [Ratio] 14.5 % 11.5 - 14.5 % [place] Hematocrit (Bld) [Volume fraction] 42.1 % 40 - 52 % [place] Hemoglobin (Bld) [Mass/Vol] 13.8 g/dL 13 - 18 g/dL [place] Interpretation and review of laboratory results Abnormal [place] MCH (RBC) [Entitic mass] 28.8 pg 26 - 34 pg [place] MCHC (RBC) [Mass/Vol] 32.7 % 32 - 36 % [place] MCV (RBC) [Entitic vol] 88.1 fL 80 - 98 fL [place] Platelet mean volume (Bld) [Entitic vol] 7.9 fL 7.4 - 10.4 fL [place] Platelets (Bld) [#/Vol] 356 10*3/uL 140 - 440 10*3/uL [place] RBC (Bld) [#/Vol] 4.78 10*6/uL 4.4 - 5.9 10*6/uL [place] WBC (Bld) [#/Vol] 16.4 10*3/uL High 3.6 - 10.7 10*3/uL [place] Test Performed by [facility], [address] [place] [address] [place], [place] Comp Panel with Mg Reflexon 11-04-2020 Calcium [Mass/Vol] 8.9 mg/dL Normal 8.4-10.4 [facility] Comment on above: Performed By: #### H EMOG, CMP3M, CRP2, LDH3, FIBGN, DDI2, APTT, FERR3 #### [facility] [address] [place] [address] ALP [Catalytic activity/Vol] 83 U/L Normal 38-126 [facility] Comment on above: Performed By: #### H EMOG, CMP3M, CRP2, LDH3, FIBGN, DDI2, APTT, FERR3 #### [facility] [address] [place] [address] ALT [Catalytic activity/Vol] 133 U/L High 0-49 [facility] Comment on above: Result Comment: The ALT test is performed by an updated assay method. Please note that the reference intervals have been changed and are now sex specific. Performed By: #### H EMOG, CMP3M, CRP2, LDH3, FIBGN, DDI2, APTT, FERR3 #### [facility] [address] [place] [address] Anion gap [Moles/Vol] 9 Normal [facility] Comment on above: Performed By: #### H EMOG, CMP3M, CRP2, LDH3, FIBGN, DDI2, APTT, FERR3 #### [facility] [address] [place] [address] AST [Catalytic activity/Vol] 39 U/L Normal 15-46 [facility] Comment on above: Performed By: #### H EMOG, CMP3M, CRP2, LDH3, FIBGN, DDI2, APTT, FERR3 #### [facility] [address] [place] [address] Bilirubin [Mass/Vol] 0.6 mg/dL Normal 0.2-1.3 [facility] Comment on above: Performed By: #### H EMOG, CMP3M, CRP2, LDH3, FIBGN, DDI2, APTT, FERR3 #### [facility] [address] [place] [address] CO2 [Moles/Vol] 20 mmol/L Low 22-30 [facility] Comment on above: Performed By: #### H EMOG, CMP3M, CRP2, LDH3, FIBGN, DDI2, APTT, FERR3 #### [facility] [address] [place] [address] Glucose [Mass/Vol] 140 mg/dL High 70-100 [facility] Comment on above: Performed By: #### H EMOG, CMP3M, CRP2, LDH3, FIBGN, DDI2, APTT, FERR3 #### [facility] [address] [place] [address] Protein [Mass/Vol] 6.1 g/dL Low 6.3-8.2 [facility] Comment on above: Performed By: #### H EMOG, CMP3M, CRP2, LDH3, FIBGN, DDI2, APTT, FERR3 #### [facility] [address] [place] [address] Urea nitrogen [Mass/Vol] 41 mg/dL High 7-20 [facility] Comment on above: Performed By: #### H EMOG, CMP3M, CRP2, LDH3, FIBGN, DDI2, APTT, FERR3 #### [facility] [address] [place] [address] Creatinine [Mass/Vol] 1.84 mg/dL High 0.52-1.25 [facility] Comment on above: Performed By: #### H EMOG, CMP3M, CRP2, LDH3, FIBGN, DDI2, APTT, FERR3 #### [facility] [address] [place] [address] GFR/1.73 sq M predicted among blacks MDRD (S/P/Bld) [Vol rate/Area] 46.0 mL/min/{1.73_m2} Abnormal >60 [facility] Comment on above: Performed By: #### H EMOG, CMP3M, CRP2, LDH3, FIBGN, DDI2, APTT, FERR3 #### [facility] [address] [place] [address] GFR/1.73 sq M predicted among non-blacks MDRD [...] #### [facility] [address] [place] [address] Albumin [Mass/Vol] 3.4 g/dL Low 3.5-5.0 [facility] Comment on above: Performed By: #### H EMOG, CMP3M, CRP2, LDH3, FIBGN, DDI2, APTT, FERR3 #### [facility] [address] [place] [address] Chloride [Moles/Vol] 106 mmol/L Normal 98-107 [facility] Comment on above: Performed By: #### H EMOG, CMP3M, CRP2, LDH3, FIBGN, DDI2, APTT, FERR3 #### [facility] [address] [place] [address] Potassium [Moles/Vol] 4.3 mmol/L Normal 3.5-5.1 [facility] Comment on above: Performed By: #### H EMOG, CMP3M, CRP2, LDH3, FIBGN, DDI2, APTT, FERR3 #### [facility] [address] [place] [address] Sodium [Moles/Vol] 134 mmol/L Low 135-145 [facility] Comment on above: Performed By: #### H EMOG, CMP3M, CRP2, LDH3, FIBGN, DDI2, APTT, FERR3 #### [facility] [address] [place] [address] Comprehensive Metabolic Pane l w/ Reflex to MGon 11-04-2020 Albumin [Mass/Vol] 3.4 g/dL Low 3.5 - 5 g/dL [place] ALP [Catalytic activity/Vol] 83 U/L 38 - 126 U/L [place] ALT [Catalytic activity/Vol] 133 U/L High 0 - 49 U/L [place] Comment on above: The ALT test is perf ormed by an updated assay method. Please note that the reference intervals have been changed and are now sex specific. Anion gap [Moles/Vol] 9 mmol/L [place] AST [Catalytic activity/Vol] 39 U/L 15 - 46 U/L [place] Bilirubin Ql (U) 0.6 mg/dL 0.2 - 1.3 mg/dL [place] Calcium [Mass/Vol] 8.9 mg/dL 8.4 - 10. 4 mg/dL [place] Chloride [Moles/Vol] 106 mmol/L 98 - 10 7 mmol/L [place] CO2 [Moles/Vol] 20 mmol/L Low 22 - 30 mmol/L [place] Creatinine [Mass/Vol] 1.84 mg/dL High 0.52 - 1.25 mg/dL [place] EGFR IF NonAfrican [place]ian 39.7 mL/min Abnormal >60 [place] Comment on above: KDIGO guidelines pro [...] (S/P/Bld) [Vol rate/Area] 46.0 mL/min/{1.73_m2} Abnormal >60 [place] Glucose [Mass/Vol] 140 mg/dL High 70 - 100 mg/dL [place] Interpretation and review of laboratory results Abnormal [place] Potassium [Moles/Vol] 4.3 mmol/L 3.5 - 5.1 mmol/L [place] Protein [Mass/Vol] 6.1 g/dL Low 6.3 - 8.2 g/dL [place] Sodium [Moles/Vol] 134 mmol/L Low 135 - 145 mmol/L [place] Urea nitrogen [Mass/Vol] 41 mg/dL High 7 - 20 mg/dL [place] Test Performed by [facility], [address] [place] [address] [place] Hemogram w/ Autodiffon 11-04 Erythrocyte distribution width (RBC) [Ratio] 14.5 % Normal 11.5-14.5 [facility] Comment on above: Performed By: #### H EMOG, CMP3M, CRP2, LDH3, FIBGN, DDI2, APTT, FERR3 #### [facility] [address] [place] [address] Hematocrit (Bld) [Volume fraction] 42.1 % Normal 40.0-52.0 [facility] Comment on above: Performed By: #### H EMOG, CMP3M, CRP2, LDH3, FIBGN, DDI2, APTT, FERR3 #### [facility] [address] [place] [id number] Hemoglobin (Bld) [Mass/Vol] 13.8 g/dL Normal 13.0-18.0 [facility] Comment on above: Performed By: #### H EMOG, CMP3M, CRP2, LDH3, FIBGN, DDI2, APTT, FERR3 #### [facility] [address] [place] [id number] MCH (RBC) [Entitic mass] 28.8 pg Normal 26.0-34.0 [facility] Comment on above: Performed By: #### H EMOG, CMP3M, CRP2, LDH3, FIBGN, DDI2, APTT, FERR3 #### [facility] [address] [place] [address] MCHC (RBC) [Mass/Vol] 32.7 % Normal 32.0-36.0 [facility] Comment on above: Performed By: #### H EMOG, CMP3M, CRP2, LDH3, FIBGN, DDI2, APTT, FERR3 #### [facility] [address] [place] [id number] MCV (RBC) [Entitic vol] 88.1 fL Normal 80.0-98.0 [facility] Comment on above: Performed By: #### H EMOG, CMP3M, CRP2, LDH3, FIBGN, DDI2, APTT, FERR3 #### [facility] [address] [place] [id number] Platelet mean volume (Bld) [Entitic vol] 7.9 fL Normal 7.4-10.4 [facility] Comment on above: Performed By: #### H EMOG, CMP3M, CRP2, LDH3, FIBGN, DDI2, APTT, FERR3 #### [facility] [address] [place] [id number] Platelets (Bld) [#/Vol] 356 10*3/uL Normal 140-440 [facility] Comment on above: Performed By: #### H EMOG, CMP3M, CRP2, LDH3, FIBGN, DDI2, APTT, FERR3 #### [facility] [address] [place] [id number] RBC (Bld) [#/Vol] 4.78 10*6/uL Normal 4.40-5.90 [facility] Comment on above: Performed By: #### H EMOG, CMP3M, CRP2, LDH3, FIBGN, DDI2, APTT, FERR3 #### [facility] [address] [place] [id number] WBC (Bld) [#/Vol] 16.4 10*3/uL High 3.6-10.7 [facility] Comment on above: Performed By: #### H EMOG, CMP3M, CRP2, LDH3, FIBGN, DDI2, APTT, FERR3 #### [facility] [address] [place] [id number] Manual Diffon 11-04-2020 Abs Baso Cnt 0.0 10*3/uL Normal 0.0-0.2 [facility] Comment on above: Performed By: #### H EMOG, CMP3M, CRP2, LDH3, FIBGN, DDI2, APTT, FERR3 #### [facility] [address] [place] [address] Abs Eosin Cnt 0.0 10*3/uL Normal 0.0-0.5 [facility] Comment on above: Performed By: #### H EMOG, CMP3M, CRP2, LDH3, FIBGN, DDI2, APTT, FERR3 #### [facility] [address] [place] [address] Abs Lymph Cnt 1.0 10*3/uL Low 1.1-4.5 [facility] Comment on above: Performed By: #### H EMOG, CMP3M, CRP2, LDH3, FIBGN, DDI2, APTT, FERR3 #### [facility] [address] [place] [address] Abs Monocyte Cnt 1.3 10*3/uL High 0.2-1.1 [facility] Comment on above: Performed By: #### H EMOG, CMP3M, CRP2, LDH3, FIBGN, DDI2, APTT, FERR3 #### [facility] [address] [place] [id number] Abs Neutrophile Cnt 13.1 10*3/uL High 2.2-8.2 [facility] Comment on above: Performed By: #### H EMOG, CMP3M, CRP2, LDH3, FIBGN, DDI2, APTT, FERR3 #### [facility] [address] [place] [id number] Anisocytosis Ql (Bld) Slight Normal [facility] Comment on above: Performed By: #### H EMOG, CMP3M, CRP2, LDH3, FIBGN, DDI2, APTT, FERR3 #### [facility] [address] [place] [address] Bands 2 % Normal 0-3 [facility] Comment on above: Performed By: #### H EMOG, CMP3M, CRP2, LDH3, FIBGN, DDI2, APTT, FERR3 #### [facility] [address] [place] [address] Basophils 0 % Normal 0-2 [facility] Comment on above: Performed By: #### H EMOG, CMP3M, CRP2, LDH3, FIBGN, DDI2, APTT, FERR3 #### [facility] [address] [place] [address] Danya Cells Slight Normal [facility] Comment on above: Performed By: #### H EMOG, CMP3M, CRP2, LDH3, FIBGN, DDI2, APTT, FERR3 #### [facility] [address] [place] [address] Cells counted 100 Normal [facility] Comment on above: Performed By: #### H EMOG, CMP3M, CRP2, LDH3, FIBGN, DDI2, APTT, FERR3 #### [facility] [address] [place] [address] Eosinophils 0 % Low 1-6 [facility] Comment on above: Performed By: #### H EMOG, CMP3M, CRP2, LDH3, FIBGN, DDI2, APTT, FERR3 #### [facility] [address] [place] [address] Lymphocytes 6 % Low 20-40 [facility] Comment on above: Performed By: #### H EMOG, CMP3M, CRP2, LDH3, FIBGN, DDI2, APTT, FERR3 #### [facility] [address] [place] [address] Metamyelocytes 5 % Abnormal <1 [facility] Comment on above: Performed By: #### H EMOG, CMP3M, CRP2, LDH3, FIBGN, DDI2, APTT, FERR3 #### [facility] [address] [place] [address] Monocytes 8 % Normal 2-10 [facility] Comment on above: Performed By: #### H EMOG, CMP3M, CRP2, LDH3, FIBGN, DDI2, APTT, FERR3 #### [facility] [address] [place] [address] Myelocytes 1 % Abnormal <1 [facility] Comment on above: Performed By: #### H EMOG, CMP3M, CRP2, LDH3, FIBGN, DDI2, APTT, FERR3 #### [facility] [address] [place] [address] Poikilocytosis Slight Normal [facility] Comment on above: Performed By: #### H EMOG, CMP3M, CRP2, LDH3, FIBGN, DDI2, APTT, FERR3 #### [facility] [address] [place] [address] RBC morphology finding Nom (Bld) ABNORMAL Normal [facility] Comment on above: Performed By: #### H EMOG, CMP3M, CRP2, LDH3, FIBGN, DDI2, APTT, FERR3 #### [facility] [address] [place] [address] Seg Neutrophils 78 % Normal 40-80 [facility] Comment on above: Performed By: #### H EMOG, CMP3M, CRP2, LDH3, FIBGN, DDI2, APTT, FERR3 #### [facility] [address] [place] [address] Manual Differentialon 2019 Absolute Baso # 0.0 10*3/uL 0 - 0.2 10*3/uL [place] Absolute Eos # 0.0 10*3/uL 0 - 0.5 10*3/uL [place] Absolute Lymph # 1.0 10*3/uL Low 1.1 - 4.5 10*3/uL [facility], [place] Absolute [place] # 1.3 10*3/uL High 0.2 - 1.1 10*3/uL [place] Absolute Neut # 13.1 10*3/uL High 2.2 - 8.2 10*3/uL [facility] Anisocytosis Ql (Bld) Slight [facility], [place] Bands 2 % 0 - 3 % [facility] Basophils 0 % 0 - 2 % [facility] Danya Cells Slight [facility] Eosinophils 0 % Low 1 - 6 % [facility] Interpretation and review of laboratory results Abnormal [place] Lymphocytes 6 % Low 20 - 40 % [place] Metamyelocytes 5 % Abnormal <1 [place] Monocytes 8 % 2 - 10 % [place] Myelocytes 1 % Abnormal <1 [place] Poikilocytes Slight [place] RBC morphology finding Nom (Bld) ABNORMAL [place] Seg Neutrophils 78 % 40 - 80 % [place] TOTAL CELLS COUNTED 100 [place] Test Performed by [facility], [address], [place], [place] [address] [place] Add On Lab Teston 11-03-2020 Sodium [Moles/Vol] Accepted [place] Comment on above: Specimen available & acceptable for analysis. Test Performed by [facility], [address], [place], [place] [address] [place] Add on test from HISon 11-03 Add on test from HIS Accepted Normal [facility] Comment on above: Result Comment: Spec imen available & acceptable for analysis. Performed By: #### H EMOG, CMP3M, CRP2, LDH3, FIBGN, DDI2, APTT, FERR3 #### [facility] [address] [place] [address] CBC Auto Differentialon 10-15 Erythrocyte distribution width (RBC) [Ratio] 14.3 % 11.5 - 14.5 % [place] Hematocrit (Bld) [Volume fraction] 39.0 % Low 40 - 52 % [place] Hemoglobin (Bld) [Mass/Vol] 12.8 g/dL Low 13 - 18 g/dL [place] Interpretation and review of laboratory results Abnormal [place] MCH (RBC) [Entitic mass] 28.7 pg 26 - 34 pg [place] MCHC (RBC) [Mass/Vol] 32.8 % 32 - 36 % [place] MCV (RBC) [Entitic vol] 87.6 fL 80 - 98 fL [place] Platelet mean volume (Bld) [Entitic vol] 7.5 fL 7.4 - 10.4 fL [place] Platelets (Bld) [#/Vol] 332 10*3/uL 140 - 440 10*3/uL [place] RBC (Bld) [#/Vol] 4.45 10*6/uL 4.4 - 5.9 10*6/uL [place] WBC (Bld) [#/Vol] 15.6 10*3/uL High 3.6 - 10.7 10*3/uL [place] Test Performed by [facility], [address], [place], [place] [address] [place] CR Chest PA/LATon 11-03-2020 CR Chest PA/LAT Patient Name: REGGIE WILSON Diagnostic Radiology ACCESSION EXAM DATE/TIME PROCEDURE ORDERING PROVIDER [id number] 11/03/2020 10:20 EST CR Chest PA and LAT MD DIAZ IMOLA KINGA CPT code 22309 Reason For Exam (CR Chest PA and [...] #### [facility] [address] [place] [address] Anion gap [Moles/Vol] 5 Normal [facility] Comment on above: Performed By: #### H EMOG, CMP3M, CRP2, LDH3, FIBGN, DDI2, APTT, FERR3 #### [facility] [address] [place] [id number] Bilirubin [Mass/Vol] 0.7 mg/dL Normal 0.2-1.3 [facility] Comment on above: Performed By: #### H EMOG, CMP3M, CRP2, LDH3, FIBGN, DDI2, APTT, FERR3 #### [facility] [address] [place] [id number] Creatinine [Mass/Vol] 2.08 mg/dL High 0.52-1.25 [facility] Comment on above: Performed By: #### H EMOG, CMP3M, CRP2, LDH3, FIBGN, DDI2, APTT, FERR3 #### [facility] [address] [place] [id number] GFR/1.73 sq M predicted among blacks MDRD (S/P/Bld) [Vol rate/Area] 39.6 mL/min/{1.73_m2} Abnormal >60 [facility] Comment on above: Performed By: #### H EMOG, CMP3M, CRP2, LDH3, FIBGN, DDI2, APTT, FERR3 #### [facility] [address] [place] [address] GFR/1.73 sq M predicted among non-blacks MDRD [...] [facility] [address] [place] [address] Albumin [Mass/Vol] 3.4 g/dL Low 3.5-5.0 [facility] Comment on above: Performed By: #### H EMOG, CMP3M, CRP2, LDH3, FIBGN, DDI2, APTT, FERR3 #### [facility] [address] [place] [address] Chloride [Moles/Vol] 107 mmol/L Normal 98-107 [facility] Comment on above: Performed By: #### H EMOG, CMP3M, CRP2, LDH3, FIBGN, DDI2, APTT, FERR3 #### [facility] [address] [place] [address] Potassium [Moles/Vol] 3.8 mmol/L Normal 3.5-5.1 [facility] Comment on above: Performed By: #### H EMOG, CMP3M, CRP2, LDH3, FIBGN, DDI2, APTT, FERR3 #### [facility] [address] [place] [address] Sodium [Moles/Vol] 134 mmol/L Low 135-145 [facility] Comment on above: Performed By: #### H EMOG, CMP3M, CRP2, LDH3, FIBGN, DDI2, APTT, FERR3 #### [facility] [address] [place] [address] ALP [Catalytic activity/Vol] 83 U/L Normal 38-126 [place] Comment on above: Performed By: #### H EMOG, CMP3M, CRP2, LDH3, FIBGN, DDI2, APTT, FERR3 #### [facility] [address] [place] [address] ALT [Catalytic activity/Vol] 175 U/L High 0-49 [place] Comment on above: Result Comment: The ALT test is performed by an updated assay method. Please note that the reference intervals have been changed and are now sex specific. Performed By: #### H EMOG, CMP3M, CRP2, LDH3, FIBGN, DDI2, APTT, FERR3 #### [facility] [address] [place] [id number] The ALT test is perf ormed by an updated assay method. Please note that the reference intervals have been changed and are now sex specific. AST [Catalytic activity/Vol] 63 U/L High 15-46 [place] Comment on above: Performed By: #### H EMOG, CMP3M, CRP2, LDH3, FIBGN, DDI2, APTT, FERR3 #### [facility] [address] [place] [address] CO2 [Moles/Vol] 21 mmol/L Low 22-30 [place] Comment on above: Performed By: #### H EMOG, CMP3M, CRP2, LDH3, FIBGN, DDI2, APTT, FERR3 #### [facility] [address] [place] [address] Glucose [Mass/Vol] 139 mg/dL High 70-100 [place] Comment on above: Performed By: #### H EMOG, CMP3M, CRP2, LDH3, FIBGN, DDI2, APTT, FERR3 #### [facility] [address] [place] [address] Protein [Mass/Vol] 5.9 g/dL Low 6.3-8.2 [place] Comment on above: Performed By: #### H EMOG, CMP3M, CRP2, LDH3, FIBGN, DDI2, APTT, FERR3 #### [facility] [address] [place] [id number] Urea nitrogen [Mass/Vol] 43 mg/dL High 7-20 [place] Comment on above: Performed By: #### H EMOG, CMP3M, CRP2, LDH3, FIBGN, DDI2, APTT, FERR3 #### [facility] [address] [place] [address] Comprehensive Metabolic Pane l w/ Reflex to MGon 11-03-2020 Albumin [Mass/Vol] 3.4 g/dL Low 3.5 - 5 g/dL [place] Anion gap [Moles/Vol] 5 mmol/L [place] Bilirubin Ql (U) 0.7 mg/dL 0.2 - 1.3 mg/dL [place] Calcium [Mass/Vol] 9.0 mg/dL 8.4 - 10. 4 mg/dL [place] Chloride [Moles/Vol] 107 mmol/L 98 - 10 7 mmol/L [place] Creatinine [Mass/Vol] 2.08 mg/dL High 0.52 - 1.25 mg/dL [place] EGFR IF NonAfrican [place] 34.2 mL/min Abnormal >60 [place] Comment on above: KDIGO guidelines pro [...] (S/P/Bld) [Vol rate/Area] 39.6 mL/min/{1.73_m2} Abnormal >60 [place] Interpretation and review of laboratory results Abnormal [place] Potassium [Moles/Vol] 3.8 mmol/L 3.5 - 5.1 mmol/L [place] Sodium [Moles/Vol] 134 mmol/L Low 135 - 145 mmol/L [place] Test Performed by [facility], [address] [place] [address] [place] Hemogram w/ Autodiffon 11-03 Erythrocyte distribution width (RBC) [Ratio] 14.3 % Normal 11.5-14.5 [facility] Comment on above: Performed By: #### H EMOG, CMP3M, CRP2, LDH3, FIBGN, DDI2, APTT, FERR3 #### [facility] [address] [place] [id number] Hematocrit (Bld) [Volume fraction] 39.0 % Low 40.0-52.0 [facility] Comment on above: Performed By: #### H EMOG, CMP3M, CRP2, LDH3, FIBGN, DDI2, APTT, FERR3 #### [facility] [address] [place] [address] Hemoglobin (Bld) [Mass/Vol] 12.8 g/dL Low 13.0-18.0 [facility] Comment on above: Performed By: #### H EMOG, CMP3M, CRP2, LDH3, FIBGN, DDI2, APTT, FERR3 #### [facility] [address] [place] [address] MCH (RBC) [Entitic mass] 28.7 pg Normal 26.0-34.0 [facility] Comment on above: Performed By: #### H EMOG, CMP3M, CRP2, LDH3, FIBGN, DDI2, APTT, FERR3 #### [facility] [address] [place] [id number] MCHC (RBC) [Mass/Vol] 32.8 % Normal 32.0-36.0 [facility] Comment on above: Performed By: #### H EMOG, CMP3M, CRP2, LDH3, FIBGN, DDI2, APTT, FERR3 #### [facility] [address] [place] [address] MCV (RBC) [Entitic vol] 87.6 fL Normal 80.0-98.0 [facility] Comment on above: Performed By: #### H EMOG, CMP3M, CRP2, LDH3, FIBGN, DDI2, APTT, FERR3 #### [facility] [address] [place] [id number] Platelet mean volume (Bld) [Entitic vol] 7.5 fL Normal 7.4-10.4 [facility] Comment on above: Performed By: #### H EMOG, CMP3M, CRP2, LDH3, FIBGN, DDI2, APTT, FERR3 #### [facility] [address] [place] [id number] Platelets (Bld) [#/Vol] 332 10*3/uL Normal 140-440 [facility] Comment on above: Performed By: #### H EMOG, CMP3M, CRP2, LDH3, FIBGN, DDI2, APTT, FERR3 #### [facility] [address] [place] [id number] RBC (Bld) [#/Vol] 4.45 10*6/uL Normal 4.40-5.90 [facility] Comment on above: Performed By: #### H EMOG, CMP3M, CRP2, LDH3, FIBGN, DDI2, APTT, FERR3 #### [facility] [address] [place] [id number] WBC (Bld) [#/Vol] 15.6 10*3/uL High 3.6-10.7 [facility] Comment on above: Performed By: #### H EMOG, CMP3M, CRP2, LDH3, FIBGN, DDI2, APTT, FERR3 #### [facility] [address] [place] [id number] Manual Diffon 11-03-2020 Abs Lymph Cnt 2.0 10*3/uL Normal 1.1-4.5 [facility] Comment on above: Performed By: #### H EMOG, CMP3M, CRP2, LDH3, FIBGN, DDI2, APTT, FERR3 #### [facility] [address] [place] [id number] Abs Monocyte Cnt 2.2 10*3/uL High 0.2-1.1 [facility] Comment on above: Performed By: #### H EMOG, CMP3M, CRP2, LDH3, FIBGN, DDI2, APTT, FERR3 #### [facility] [address] [place] [address] Abs Neutrophile Cnt 11.4 10*3/uL High 2.2-8.2 [facility] Comment on above: Performed By: #### H EMOG, CMP3M, CRP2, LDH3, FIBGN, DDI2, APTT, FERR3 #### [facility] [address] [place] [address] Anisocytosis Ql (Bld) Slight Normal [facility] Comment on above: Performed By: #### H EMOG, CMP3M, CRP2, LDH3, FIBGN, DDI2, APTT, FERR3 #### [facility] [address] [place] [address] Bands 4 % High 0-3 [facility] Comment on above: Performed By: #### H EMOG, CMP3M, CRP2, LDH3, FIBGN, DDI2, APTT, FERR3 #### [facility] [address] [place] [address] Ludell Cells Slight Normal [facility] Comment on above: Performed By: #### H EMOG, CMP3M, CRP2, LDH3, FIBGN, DDI2, APTT, FERR3 #### [facility] [address] [place] [address] Lymphocytes 13 % Low 20-40 [facility] Comment on above: Performed By: #### H EMOG, CMP3M, CRP2, LDH3, FIBGN, DDI2, APTT, FERR3 #### [facility] [address] [place] [address] Monocytes 14 % High 2-10 [facility] Comment on above: Performed By: #### H EMOG, CMP3M, CRP2, LDH3, FIBGN, DDI2, APTT, FERR3 #### [facility] [address] [place] [address] NRBC 1 /100{WBCs} High -1-0 [facility] Comment on above: Result Comment: [place] (<60 days) 1-10 Adult <1 Performed By: #### H EMOG, CMP3M, CRP2, LDH3, FIBGN, DDI2, APTT, FERR3 #### [facility] [address] [place] [address] RBC morphology finding Nom (Bld) ABNORMAL Normal [facility] Comment on above: Performed By: #### H EMOG, CMP3M, CRP2, LDH3, FIBGN, DDI2, APTT, FERR3 #### [facility] [address] [place] [address] Seg Neutrophils 69 % Normal 40-80 [facility] Comment on above: Performed By: #### H EMOG, CMP3M, CRP2, LDH3, FIBGN, DDI2, APTT, FERR3 #### [facility] [address] [place] [address] Tear Drop Forms Slight Normal [facility] Comment on above: Performed By: #### H EMOG, CMP3M, CRP2, LDH3, FIBGN, DDI2, APTT, FERR3 #### [facility] [address] [place] [address] Abs Baso Cnt 0.0 10*3/uL Normal 0.0-0.2 [facility] Comment on above: Performed By: #### H EMOG, CMP3M, CRP2, LDH3, FIBGN, DDI2, APTT, FERR3 #### [facility] [address] [place] [address] Abs Eosin Cnt 0.0 10*3/uL Normal 0.0-0.5 [facility] Comment on above: Performed By: #### H EMOG, CMP3M, CRP2, LDH3, FIBGN, DDI2, APTT, FERR3 #### [facility] [address] [place] [address] Basophils 0 % Normal 0-2 [facility] Comment on above: Performed By: #### H EMOG, CMP3M, CRP2, LDH3, FIBGN, DDI2, APTT, FERR3 #### [facility] [address] [place] [address] Cells counted 100 Normal [facility] Comment on above: Performed By: #### H EMOG, CMP3M, CRP2, LDH3, FIBGN, DDI2, APTT, FERR3 #### [facility] [address] [place] [address] Eosinophils 0 % Low 1-6 [facility] Comment on above: Performed By: #### H EMOG, CMP3M, CRP2, LDH3, FIBGN, DDI2, APTT, FERR3 #### [facility] [address] [place] [address] Manual Differentialon 2019 Absolute Baso # 0.0 10*3/uL 0 - 0.2 10*3/uL [facility] Absolute Eos # 0.0 10*3/uL 0 - 0.5 10*3/uL [place] Absolute Lymph # 2.0 10*3/uL 1.1 - 4.5 10*3/uL [facility] Absolute [place] # 2.2 10*3/uL High 0.2 - 1.1 10*3/uL [facility] Absolute Neut # 11.4 10*3/uL High 2.2 - 8.2 10*3/uL [facility] Anisocytosis Ql (Bld) Slight [facility], [place] Bands 4 % High 0 - 3 % [facility] Basophils 0 % 0 - 2 % [facility] Cells Slight [place] Eosinophils 0 % Low 1 - 6 % [place] Interpretation and review of laboratory results Abnormal [place] Lymphocytes 13 % Low 20 - 40 % [facility] Monocytes 14 % High 2 - 10 % [facility] nRBC 1 /100{WBCs} High -1 - 0 /100{WBCs} [place] Comment on above: [place] (<60 days) 1 -10 Adult <1 RBC morphology finding Nom (Bld) ABNORMAL [place] Seg Neutrophils 69 % 40 - 80 % [facility] Tear Drop Cells Slight [facility] TOTAL CELLS COUNTED 100 [place] Test Performed by [facility], [address] [place] [address] [place] Procalcitoninon 11-03-2020 Procalcitonin < 0.10 Normal <0.10 [facility] Comment on above: Performed By: #### H EMOG, CMP3M, CRP2, LDH3, FIBGN, DDI2, APTT, FERR3 #### [facility] [address] [place] [address] Procalcitonin <0.10 <0.10 ng/mL [place] Sodium [Moles/Vol] See Below [place], [place] Comment on above: PCT <0.50 = Low risk of severe sepsis and/or septic shock. PCT >2.00 = High risk of severe sepsis and/or septic shock. Test Performed by [facility], [address] [place] [id number] [place], [place] Interpretation See Below Normal [facility] Comment on above: Result Comment: PCT <0.50 = Low risk of severe sepsis and/or septic shock. PCT >2.00 = High risk of severe sepsis and/or septic shock. Performed By: #### H EMOG, CMP3M, CRP2, LDH3, FIBGN, DDI2, APTT, FERR3 #### [facility] [address] [place] [address] XR CHEST (2 VW)on 11-03-2020 Michel, [facility] Incoming Radiology Results From [facility] - 11/03/2020 10:59 AM EST Patient Name: REGGIE LEÓN Diagnostic Radiology ACCESSION EXAM DATE/TIME PROCEDURE ORDERING PROVIDER [id number] 11/03/2020 10:20 EST CR Chest PA & LAT MD EMILY, FARRUKH MCCORMICK CPT code 60759 Reason For Exam (CR Chest PA & [...] JEFFREY Transcribed Date and Time: 11/03/2020 10:59 [place], [place] Patient Name: [id number] Diagnostic Radiology ACCESSION EXAM DATE/TIME PROCEDURE ORDERING PROVIDER [id number] 11/03/2020 10:20 EST CR Chest PA & LAT MD DIAZ IMOLA KINGA CPT code 43118 Reason For Exam (CR Chest PA & [...] JEFFREY Transcribed Date and Time: 11/03/2020 10:59 [place] APTTon 11-02-2020 aPTT Coag (Bld) [Time] 30.4 s Normal 20.0-30.5 [facility] Comment on above: Result Comment: NOTE : The therapeutic time for Heparin anticoagulation, based on Xa activity inhibition, is an APTT of 46-80 seconds. Performed By: #### H EMOG, CMP3M, CRP2, LDH3, FIBGN, DDI2, APTT, FERR3 #### [facility] [address] [place] [address] aPTT Coag (Bld) [Time] 30.4 s 20 - 30.5 s [place] Comment on above: NOTE: The therapeuti c time for Heparin anticoagulation, based on Xa activity inhibition, is an APTT of 46-80 seconds. C-Reactive Proteinon 020 CRP [Mass/Vol] 10.2 mg/L High 0.0-6.0 [facility] Comment on above: Result Comment: . Performed By: #### H EMOG, CMP3M, CRP2, LDH3, FIBGN, DDI2, APTT, FERR3 #### [facility] [address] [place] [address] CRP [Mass/Vol] 10.2 mg/L High 0 - 6 mg/L [place] Comment on above: . CBCon 11-02-2020 Erythrocyte distribution width (RBC) [Ratio] 14.2 % 11.5 - 14.5 % [place] Hematocrit (Bld) [Volume fraction] 39.5 % Low 40 - 52 % [place] Hemoglobin (Bld) [Mass/Vol] 13.2 g/dL 13 - 18 g/dL [place] Interpretation and review of laboratory results Abnormal [place] MCH (RBC) [Entitic mass] 29.4 pg 26 - 34 pg [place] MCHC (RBC) [Mass/Vol] 33.5 % 32 - 36 % [place], [place] MCV (RBC) [Entitic vol] 87.8 fL 80 - 98 fL M [place], [place] Platelet mean volume (Bld) [Entitic vol] 7.6 fL 7.4 - 10.4 fL [place] Platelets (Bld) [#/Vol] 340 10*3/uL 140 - 440 10*3/uL [place] RBC (Bld) [#/Vol] 4.49 10*6/uL 4.4 - 5.9 10*6/uL [place] WBC (Bld) [#/Vol] 13.0 10*3/uL High 3.6 - 10.7 10*3/uL [place] Test Performed by [facility], [address], [place], [place] [address] [facility], [place] Comp Panel with Mg Reflexon 11-02-2020 [...] [facility] [address] [place] [address] Calcium [Mass/Vol] 8.8 mg/dL Normal 8.4-10.4 [facility] Comment on above: Performed By: #### H EMOG, CMP3M, CRP2, LDH3, FIBGN, DDI2, APTT, FERR3 #### [facility] [address] [place] [address] Glucose [Mass/Vol] 135 mg/dL High 70-100 [facility] Comment on above: Performed By: #### H EMOG, CMP3M, CRP2, LDH3, FIBGN, DDI2, APTT, FERR3 #### [facility] [address] [place] [address] ALP [Catalytic activity/Vol] 85 U/L Normal 38-126 [facility] Comment on above: Performed By: #### H EMOG, CMP3M, CRP2, LDH3, FIBGN, DDI2, APTT, FERR3 #### [facility] [address] [place] [address] Anion gap [Moles/Vol] 9 Normal [facility] Comment on above: Performed By: #### H EMOG, CMP3M, CRP2, LDH3, FIBGN, DDI2, APTT, FERR3 #### [facility] [address] [place] [address] AST [Catalytic activity/Vol] 104 U/L High 15-46 [facility] Comment on above: Performed By: #### H EMOG, CMP3M, CRP2, LDH3, FIBGN, DDI2, APTT, FERR3 #### [facility] [address] [place] [address] Bilirubin [Mass/Vol] 0.7 mg/dL Normal 0.2-1.3 [facility] Comment on above: Performed By: #### H EMOG, CMP3M, CRP2, LDH3, FIBGN, DDI2, APTT, FERR3 #### [facility] [address] [place] [address] CO2 [Moles/Vol] 18 mmol/L Low 22-30 [facility] Comment on above: Performed By: #### H EMOG, CMP3M, CRP2, LDH3, FIBGN, DDI2, APTT, FERR3 #### [facility] [address] [place] [address] Creatinine [Mass/Vol] 1.89 mg/dL High 0.52-1.25 [facility] Comment on above: Performed By: #### H EMOG, CMP3M, CRP2, LDH3, FIBGN, DDI2, APTT, FERR3 #### [facility] [address] [place] [address] GFR/1.73 sq M predicted among blacks MDRD (S/P/Bld) [Vol rate/Area] 44.5 mL/min/{1.73_m2} Abnormal >60 [facility] Comment on above: Performed By: #### H EMOG, CMP3M, CRP2, LDH3, FIBGN, DDI2, APTT, FERR3 #### [facility] [address] [place] [address] GFR/1.73 sq M predicted among non-blacks MDRD [...] [facility] [address] [place] [address] Protein [Mass/Vol] 6.1 g/dL Low 6.3-8.2 [facility] Comment on above: Performed By: #### H EMOG, CMP3M, CRP2, LDH3, FIBGN, DDI2, APTT, FERR3 #### [facility] [address] [place] [address] Urea nitrogen [Mass/Vol] 35 mg/dL High 7-20 [facility] Comment on above: Performed By: #### H EMOG, CMP3M, CRP2, LDH3, FIBGN, DDI2, APTT, FERR3 #### [facility] [address] [place] [address] Potassium [Moles/Vol] 4.3 mmol/L Normal 3.5-5.1 [facility] Comment on above: Performed By: #### H EMOG, CMP3M, CRP2, LDH3, FIBGN, DDI2, APTT, FERR3 #### [facility] [address] [place] [address] Albumin [Mass/Vol] 3.3 g/dL Low 3.5-5.0 [facility] Comment on above: Performed By: #### H EMOG, CMP3M, CRP2, LDH3, FIBGN, DDI2, APTT, FERR3 #### [facility] [address] [place] [address] Chloride [Moles/Vol] 110 mmol/L High 98-107 [facility] Comment on above: Performed By: #### H EMOG, CMP3M, CRP2, LDH3, FIBGN, DDI2, APTT, FERR3 #### [facility] [address] [place] [address] Sodium [Moles/Vol] 137 mmol/L Normal 135-145 [facility] Comment on above: Performed By: #### H EMOG, CMP3M, CRP2, LDH3, FIBGN, DDI2, APTT, FERR3 #### [facility] [address] [place] [address] Comprehensive Metabolic Pane l w/ Reflex to MGon 11-02-2020 Albumin [Mass/Vol] 3.3 g/dL Low 3.5 - 5 g/dL [place] ALP [Catalytic activity/Vol] 85 U/L 38 - 126 U/L [place] ALT [Catalytic activity/Vol] 198 U/L High 0 - 49 U/L [place] Comment on above: The ALT test is perf ormed by an updated assay method. Please note that the reference intervals have been changed and are now sex specific. Anion gap [Moles/Vol] 9 mmol/L [place], [place] AST [Catalytic activity/Vol] 104 U/L High 15 - 46 U/L [place] Bilirubin Ql (U) 0.7 mg/dL 0.2 - 1.3 mg/dL [place] Calcium [Mass/Vol] 8.8 mg/dL 8.4 - 10. 4 mg/dL [place] Chloride [Moles/Vol] 110 mmol/L High 98 - 10 7 mmol/L [place] CO2 [Moles/Vol] 18 mmol/L Low 22 - 30 mmol/L [place] Creatinine [Mass/Vol] 1.89 mg/dL High 0.52 - 1.25 mg/dL [place] EGFR IF NonAfrican [place] 38.4 mL/min Abnormal >60 [place] Comment on above: KDIGO guidelines pro [...] (S/P/Bld) [Vol rate/Area] 44.5 mL/min/{1.73_m2} Abnormal >60 [facility] Glucose [Mass/Vol] 135 mg/dL High 70 - 100 mg/dL [facility] Potassium [Moles/Vol] 4.3 mmol/L 3.5 - 5.1 mmol/L [facility] Protein [Mass/Vol] 6.1 g/dL Low 6.3 - 8.2 g/dL [place] Sodium [Moles/Vol] 137 mmol/L 135 - 145 mmol/L [facility] Urea nitrogen [Mass/Vol] 35 mg/dL High 7 - 20 mg/dL [place] D-Dimer, Innovanceon 11-02-2 020 D-Dimer, Innovance 0.83 mg/L High 0.00-0.50 [facility] Comment on above: Result Comment: Inno quach D-Dimer values of <0.50 mg/L FEU can be used in combination with a pre-test probability model (e.g. Well's) to exclude pulmonary embolism (PE) disease, as well as an aid in the diagnosis of deep vein thrombosis (DVT). Performed By: #### H EMOG, CMP3M, CRP2, LDH3, FIBGN, DDI2, APTT, FERR3 #### [employer] [address] [place] [address] D-Dimer, Quantitativeon 12-2 D-Dimer, Quant 0.83 mg/L High 0 - 0.5 mg/L [place] Comment on above: [employer] D-Dimer va lues of <0.50 mg/L FEU can be used in combination with a pre-test probability model (e.g. Well's) to exclude pulmonary embolism (PE) disease, as well as an aid in the diagnosis of deep vein thrombosis (DVT). Interpretation and review of laboratory results Abnormal [place] Ferritinon 11-02-2020 Ferritin [Mass/Vol] 938 ng/mL High 18-464 [facility] Comment on above: Performed By: #### H EMOG, CMP3M, CRP2, LDH3, FIBGN, DDI2, APTT, FERR3 #### [facility] [address] [place] [address] Ferritin [Mass/Vol] 938 ng/mL High 18 - 464 ng/mL [place] Interpretation and review of laboratory results Abnormal [place] Test Performed by [facility], [address] [place] [address] [place] Fibrinogenon 11-02-2020 Fibrinogen 373 mg/dL Normal 200-400 [facility] Comment on above: Performed By: #### H EMOG, CMP3M, CRP2, LDH3, FIBGN, DDI2, APTT, FERR3 #### [facility] [address] [place] [address] Fibrinogen 373 mg/dL 200 - 400 mg/dL [place] Hemogramon 11-02-2020 Erythrocyte distribution width (RBC) [Ratio] 14.2 % Normal 11.5-14.5 [facility] Comment on above: Performed By: #### H EMOG, CMP3M, CRP2, LDH3, FIBGN, DDI2, APTT, FERR3 #### [facility] [address] [place] [address] Hematocrit (Bld) [Volume fraction] 39.5 % Low 40.0-52.0 [facility] Comment on above: Performed By: #### H EMOG, CMP3M, CRP2, LDH3, FIBGN, DDI2, APTT, FERR3 #### [facility] [address] [place] [address] Hemoglobin (Bld) [Mass/Vol] 13.2 g/dL Normal 13.0-18.0 [facility] Comment on above: Performed By: #### H EMOG, CMP3M, CRP2, LDH3, FIBGN, DDI2, APTT, FERR3 #### [facility] [address] [place] [address] MCH (RBC) [Entitic mass] 29.4 pg Normal 26.0-34.0 [facility] Comment on above: Performed By: #### H EMOG, CMP3M, CRP2, LDH3, FIBGN, DDI2, APTT, FERR3 #### [facility] [address] [place] [address] MCHC (RBC) [Mass/Vol] 33.5 % Normal 32.0-36.0 [facility] Comment on above: Performed By: #### H EMOG, CMP3M, CRP2, LDH3, FIBGN, DDI2, APTT, FERR3 #### [facility] [address] [place] [address] MCV (RBC) [Entitic vol] 87.8 fL Normal 80.0-98.0 [facility] Comment on above: Performed By: #### H EMOG, CMP3M, CRP2, LDH3, FIBGN, DDI2, APTT, FERR3 #### [facility] [address] [place] [address] Platelet mean volume (Bld) [Entitic vol] 7.6 fL Normal 7.4-10.4 [facility] Comment on above: Performed By: #### H EMOG, CMP3M, CRP2, LDH3, FIBGN, DDI2, APTT, FERR3 #### [facility] [address] [place] [address] Platelets (Bld) [#/Vol] 340 10*3/uL Normal 140-440 [facility] Comment on above: Performed By: #### H EMOG, CMP3M, CRP2, LDH3, FIBGN, DDI2, APTT, FERR3 #### [facility] [address] [place] [address] RBC (Bld) [#/Vol] 4.49 10*6/uL Normal 4.40-5.90 [facility] Comment on above: Performed By: #### H EMOG, CMP3M, CRP2, LDH3, FIBGN, DDI2, APTT, FERR3 #### [facility] [address] [place] [address] WBC (Bld) [#/Vol] 13.0 10*3/uL High 3.6-10.7 [facility] Comment on above: Performed By: #### H EMOG, CMP3M, CRP2, LDH3, FIBGN, DDI2, APTT, FERR3 #### [facility] [address] [place] [address] LDHon 11-02-2020 LDH 589 U/L High 120-246 [facility] Comment on above: Performed By: #### H EMOG, CMP3M, CRP2, LDH3, FIBGN, DDI2, APTT, FERR3 #### [facility] [address] [place] [address] Lactate Dehydrogenaseon - 0-2019 LD 589 U/L High 120 - 246 U/L [facility] [employer] Otheron 11-02-2020 Test Performed by [facility], [address] [place] [address] [place] Interpretation and review of laboratory results Abnormal [facility] [employer] Test Performed by [facility], [address] [place] [address] [place] C-Reactive Proteinon 020 CRP [Mass/Vol] 14.1 mg/L High 0.0-6.0 [facility] Comment on above: Result Comment: . Performed By: #### H EMOG, CMP3M, CRP2, LDH3, FIBGN, DDI2, APTT, FERR3 #### [facility] [address] [place] [address] CRP [Mass/Vol] 14.1 mg/L High 0 - 6 mg/L [place] Comment on above: . Interpretation and review of laboratory results Abnormal [facility] [employer] Test Performed by [facility], [address] [place] [address] [place], [place] Comp Panel with Mg Reflexon 12-19-2020 ALT [Catalytic activity/Vol] 173 U/L High 0-49 [facility] Comment on above: Result Comment: The ALT test is performed by an updated assay method. Please note that the reference intervals have been changed and are now sex specific. Performed By: #### H EMOG, CMP3M, CRP2, LDH3, FIBGN, DDI2, APTT, FERR3 #### [facility] [address] [place] [address] Calcium [Mass/Vol] 8.7 mg/dL Normal 8.4-10.4 [facility] Comment on above: Performed By: #### H EMOG, CMP3M, CRP2, LDH3, FIBGN, DDI2, APTT, FERR3 #### [facility] [address] [place] [address] ALP [Catalytic activity/Vol] 77 U/L Normal 38-126 [facility] Comment on above: Performed By: #### H EMOG, CMP3M, CRP2, LDH3, FIBGN, DDI2, APTT, FERR3 #### [facility] [address] [place] [address] Anion gap [Moles/Vol] 7 Normal [facility] Comment on above: Performed By: #### H EMOG, CMP3M, CRP2, LDH3, FIBGN, DDI2, APTT, FERR3 #### [facility] [address] [place] [address] AST [Catalytic activity/Vol] 135 U/L High 15-46 [facility] Comment on above: Performed By: #### H EMOG, CMP3M, CRP2, LDH3, FIBGN, DDI2, APTT, FERR3 #### [facility] [address] [place] [address] Bilirubin [Mass/Vol] 0.5 mg/dL Normal 0.2-1.3 [facility] Comment on above: Performed By: #### H EMOG, CMP3M, CRP2, LDH3, FIBGN, DDI2, APTT, FERR3 #### [facility] [address] [place] [address] CO2 [Moles/Vol] 18 mmol/L Low 22-30 [facility] Comment on above: Performed By: #### H EMOG, CMP3M, CRP2, LDH3, FIBGN, DDI2, APTT, FERR3 #### [facility] [address] [place] [address] Creatinine [Mass/Vol] 1.77 mg/dL High 0.52-1.25 [facility] Comment on above: Performed By: #### H EMOG, CMP3M, CRP2, LDH3, FIBGN, DDI2, APTT, FERR3 #### [facility] [address] [place] [address] GFR/1.73 sq M predicted among blacks MDRD (S/P/Bld) [Vol rate/Area] 48.2 mL/min/{1.73_m2} Abnormal >60 [facility] Comment on above: Performed By: #### H EMOG, CMP3M, CRP2, LDH3, FIBGN, DDI2, APTT, FERR3 #### [facility] [address] [place] [address] GFR/1.73 sq M predicted among non-blacks MDRD [...] Hospital [address] [place] [address] Glucose [Mass/Vol] 134 mg/dL High 70-100 [facility] Comment on above: Performed By: #### H EMOG, CMP3M, CRP2, LDH3, FIBGN, DDI2, APTT, FERR3 #### [facility] [address] [place] [address] Protein [Mass/Vol] 5.6 g/dL Low 6.3-8.2 [facility] Comment on above: Performed By: #### H EMOG, CMP3M, CRP2, LDH3, FIBGN, DDI2, APTT, FERR3 #### [facility] [address] [place] [address] Urea nitrogen [Mass/Vol] 32 mg/dL High 7-20 [facility] Comment on above: Performed By: #### H EMOG, CMP3M, CRP2, LDH3, FIBGN, DDI2, APTT, FERR3 #### [facility] [address] [place] [address] Potassium [Moles/Vol] 4.2 mmol/L Normal 3.5-5.1 [facility] Comment on above: Performed By: #### H EMOG, CMP3M, CRP2, LDH3, FIBGN, DDI2, APTT, FERR3 #### [facility] [address] [place] [address] Sodium [Moles/Vol] 137 mmol/L Normal 135-145 [facility] Comment on above: Performed By: #### H EMOG, CMP3M, CRP2, LDH3, FIBGN, DDI2, APTT, FERR3 #### [facility] [address] [place] [address] Albumin [Mass/Vol] 3.1 g/dL Low 3.5-5.0 [facility] Comment on above: Performed By: #### H EMOG, CMP3M, CRP2, LDH3, FIBGN, DDI2, APTT, FERR3 #### [facility] [address] [place] [address] Chloride [Moles/Vol] 113 mmol/L High 98-107 [facility] Comment on above: Performed By: #### H EMOG, CMP3M, CRP2, LDH3, FIBGN, DDI2, APTT, FERR3 #### [facility] [address] [place] [address] Comprehensive Metabolic Pane l w/ Reflex to MGon 11-01-2020 Albumin [Mass/Vol] 3.1 g/dL Low 3.5 - 5 g/dL [place] ALP [Catalytic activity/Vol] 77 U/L 38 - 126 U/L [place] ALT [Catalytic activity/Vol] 173 U/L High 0 - 49 U/L [place] Comment on above: The ALT test is perf ormed by an updated assay method. Please note that the reference intervals have been changed and are now sex specific. Anion gap [Moles/Vol] 7 mmol/L [place], [place] AST [Catalytic activity/Vol] 135 U/L High 15 - 46 U/L [place] Bilirubin Ql (U) 0.5 mg/dL 0.2 - 1.3 mg/dL [place] Calcium [Mass/Vol] 8.7 mg/dL 8.4 - 10. 4 mg/dL [place] Chloride [Moles/Vol] 113 mmol/L High 98 - 10 7 mmol/L [place] CO2 [Moles/Vol] 18 mmol/L Low 22 - 30 mmol/L [place] Creatinine [Mass/Vol] 1.77 mg/dL High 0.52 - 1.25 mg/dL [place] EGFR IF NonAfrican [place] 41.6 mL/min Abnormal >60 [place] Comment on above: KDIGO guidelines pro [...] (S/P/Bld) [Vol rate/Area] 48.2 mL/min/{1.73_m2} Abnormal >60 [facility], [place] Glucose [Mass/Vol] 134 mg/dL High 70 - 100 mg/dL [facility] Potassium [Moles/Vol] 4.2 mmol/L 3.5 - 5.1 mmol/L [facility] Protein [Mass/Vol] 5.6 g/dL Low 6.3 - 8.2 g/dL [facility] Sodium [Moles/Vol] 137 mmol/L 135 - 145 mmol/L [facility] Urea nitrogen [Mass/Vol] 32 mg/dL High 7 - 20 mg/dL [place], [place] D-Dimer, [employer] 11-01- 020 D-Dimer, [employer] 0.87 mg/L [facility] 0.00-0.[facility] Comment on above: Result Comment: Inno quach D-Dimer values of <0.50 mg/L FEU can be used in combination with a pre-test probability model (e.g. Well's) to exclude pulmonary embolism (PE) disease, as well as an aid in the diagnosis of deep vein thrombosis (DVT). Performed By: #### H EMOG, CMP3M, CRP2, LDH3, FIBGN, DDI2, APTT, FERR3 #### [employer] [address] [place] [address] D-Dimer, Quantitativeon - D-Dimer, Quant 0.87 mg/L High 0 - 0.5 mg/L [place], [place] Comment on above: [employer] D-Dimer va lues of <0.50 mg/L FEU can be used in combination with a pre-test probability model (e.g. Well's) to exclude pulmonary embolism (PE) disease, as well as an aid in the diagnosis of deep vein thrombosis (DVT). EKG 12 [place] 11-01-2020 Michel, [facility] Incoming Cardiology Results From [facility] - 11/01/2020 11:02 PM EST [facility] Test Date: 2020-10-31 Pat Name: Reggie León Department: 09 Room: 468 Gender: Cirilo Anesthesia Assistant: [place]LA : [id number] Requested By: FARRUKH DIAZ Order Number: [id number] Reading MD: Usama Johnston Intervals [place] Rate: 83 P: 21 DE: 192 QRS: -16 QRSD: 104 T: 28 QT: 404 QTc: 475 Interpretive Statements SINUS RHYTHM MULTIPLE VENTRICULAR PREMATURE COMPLEXES Electronically Signed On 11-01-2020 23:01:06 EST by Usama [facility] Test Date: 2020-10-31 Pat Name: Reggie León Department: Room: 468 Gender: M Anesthesia Assistant: NYLA : [id number] Requested By: FARRUKH DIAZ Order Number: [id number] Reading MD: Usama Johnston Intervals [place] Rate: 83 P: 21 DE: 192 QRS: -16 QRSD: 104 T: 28 QT: 404 QTc: 475 Interpretive Statements SINUS RHYTHM MULTIPLE VENTRICULAR PREMATURE COMPLEXES Electronically Signed On 11-01-2020 23:01:06 EST by Usama [place], [place] Ferritinon 11-01-2020 Ferritin [Mass/Vol] 1020 ng/mL High 18-464 [facility] Comment on above: Performed By: #### H EMOG, CMP3M, CRP2, LDH3, FIBGN, DDI2, APTT, FERR3 #### [facility] [address] [place] [address] Ferritin [Mass/Vol] 1020 ng/mL High 18 - 464 ng/mL [place] Interpretation and review of laboratory results Abnormal [place] Test Performed by [facility], [address], [place], [place] [address] [place], [place] Fibrinogenon 11-01-2020 Fibrinogen 420 mg/dL High 200-400 [facility] Comment on above: Performed By: #### H EMOG, CMP3M, CRP2, LDH3, FIBGN, DDI2, APTT, FERR3 #### [facility] [address] [place] [address] Fibrinogen 420 mg/dL High 200 - 400 mg/dL [place] LDHon 11-01-2020 LDH 665 U/L High 120-246 [facility] Comment on above: Performed By: #### H EMOG, CMP3M, CRP2, LDH3, FIBGN, DDI2, APTT, FERR3 #### [facility] [address] [place] [address] Lactate Dehydrogenaseon 10-14 LD 665 U/L High 120 - 246 U/L [place] Otheron 11-01-2020 Interpretation and review of laboratory results Abnormal [place] Test Performed by [facility], [address] [place] [address] [place] Interpretation and review of laboratory results Abnormal [place] Test Performed by [facility], [address] [place] [address] [place] C-Reactive Proteinon 020 CRP [Mass/Vol] 19.2 mg/L High 0.0-6.0 [facility] Comment on above: Result Comment: . Performed By: #### H EMOG, CMP3M, CRP2, LDH3, FIBGN, DDI2, APTT, FERR3 #### [facility] [address] [place] [address] CRP [Mass/Vol] 19.2 mg/L High 0 - 6 mg/L [place] Comment on above: . CBCon 10-31-2020 Erythrocyte distribution width (RBC) [Ratio] 14.0 % 11.5 - 14.5 % [place] Hematocrit (Bld) [Volume fraction] 35.7 % Low 40 - 52 % [place] Hemoglobin (Bld) [Mass/Vol] 12.0 g/dL Low 13 - 18 g/dL [place] Interpretation and review of laboratory results Abnormal [place] MCH (RBC) [Entitic mass] 29.0 pg 26 - 34 pg [place] MCHC (RBC) [Mass/Vol] 33.7 % 32 - 36 % [place] MCV (RBC) [Entitic vol] 86.3 fL 80 - 98 fL [place], [place] Platelet mean volume (Bld) [Entitic vol] 7.5 fL 7.4 - 10.4 fL [place] Platelets (Bld) [#/Vol] 294 10*3/uL 140 - 440 10*3/uL [place] RBC (Bld) [#/Vol] 4.14 10*6/uL Low 4.4 - 5.9 10*6/uL [place] WBC (Bld) [#/Vol] 9.5 10*3/uL 3.6 - 10.7 10*3/uL [place] Test Performed by [facility], [address] [place], [place] [address] [place] Comp Panel with Mg Reflexon 10-31-2020 [...] #### [facility] [address] [place] [address] Calcium [Mass/Vol] 8.7 mg/dL Normal 8.4-10.4 [facility] Comment on above: Performed By: #### H EMOG, CMP3M, CRP2, LDH3, FIBGN, DDI2, APTT, FERR3 #### [facility] [address] [place] [place] [address] Glucose [Mass/Vol] 139 mg/dL High 70-100 [facility] Comment on above: Performed By: #### H EMOG, CMP3M, CRP2, LDH3, FIBGN, DDI2, APTT, FERR3 #### [facility] [address] [place] [address] Urea nitrogen [Mass/Vol] 30 mg/dL High 7-20 [facility] Comment on above: Performed By: #### H EMOG, CMP3M, CRP2, LDH3, FIBGN, DDI2, APTT, FERR3 #### [facility] [address] [place] [address] ALP [Catalytic activity/Vol] 69 U/L Normal 38-126 [facility] Comment on above: Performed By: #### H EMOG, CMP3M, CRP2, LDH3, FIBGN, DDI2, APTT, FERR3 #### [facility] [address] [place] [address] Anion gap [Moles/Vol] 7 Normal [facility] Comment on above: Performed By: #### H EMOG, CMP3M, CRP2, LDH3, FIBGN, DDI2, APTT, FERR3 #### [facility] [address] [place] [address] AST [Catalytic activity/Vol] 67 U/L High 15-46 [facility] Comment on above: Performed By: #### H EMOG, CMP3M, CRP2, LDH3, FIBGN, DDI2, APTT, FERR3 #### [facility] [address] [place] [address] Bilirubin [Mass/Vol] 0.4 mg/dL Normal 0.2-1.3 [facility] Comment on above: Performed By: #### H EMOG, CMP3M, CRP2, LDH3, FIBGN, DDI2, APTT, FERR3 #### [facility] [address] [place] [address] CO2 [Moles/Vol] 17 mmol/L Low 22-30 [facility] Comment on above: Performed By: #### H EMOG, CMP3M, CRP2, LDH3, FIBGN, DDI2, APTT, FERR3 #### [facility] [address] [place] [address] Creatinine [Mass/Vol] 1.84 mg/dL High 0.52-1.25 [facility] Comment on above: Performed By: #### H EMOG, CMP3M, CRP2, LDH3, FIBGN, DDI2, APTT, FERR3 #### [facility] [address] [place] [address] GFR/1.73 sq M predicted among blacks MDRD (S/P/Bld) [Vol rate/Area] 46.0 mL/min/{1.73_m2} Abnormal >60 [facility] Comment on above: Performed By: #### H EMOG, CMP3M, CRP2, LDH3, FIBGN, DDI2, APTT, FERR3 #### [facility] [address] [place] [address] GFR/1.73 sq M predicted among non-blacks MDRD [...] FERR3 #### [facility] [address] [place] [address] Protein [Mass/Vol] 5.3 g/dL Low 6.3-8.2 [facility] Comment on above: Performed By: #### H EMOG, CMP3M, CRP2, LDH3, FIBGN, DDI2, APTT, FERR3 #### [facility] [address] [place] [address] Albumin [Mass/Vol] 2.8 g/dL Low 3.5-5.0 [facility] Comment on above: Performed By: #### H EMOG, CMP3M, CRP2, LDH3, FIBGN, DDI2, APTT, FERR3 #### [facility] [address] [place] [address] Chloride [Moles/Vol] 112 mmol/L High 98-107 [facility] Comment on above: Performed By: #### H EMOG, CMP3M, CRP2, LDH3, FIBGN, DDI2, APTT, FERR3 #### [facility] [address] [place] [address] Sodium [Moles/Vol] 136 mmol/L Normal 135-145 [facility] Comment on above: Performed By: #### H EMOG, CMP3M, CRP2, LDH3, FIBGN, DDI2, APTT, FERR3 #### [facility] [address] [place] [address] Potassium [Moles/Vol] 3.8 mmol/L Normal 3.5-5.1 [place] Comment on above: Performed By: #### H EMOG, CMP3M, CRP2, LDH3, FIBGN, DDI2, APTT, FERR3 #### [facility] [address] [place] [address] Comprehensive Metabolic Pane l w/ Reflex to MGon 10-31-2020 Albumin [Mass/Vol] 2.8 g/dL Low 3.5 - 5 g/dL [place] ALP [Catalytic activity/Vol] 69 U/L 38 - 126 U/L [place] ALT [Catalytic activity/Vol] 79 U/L High 0 - 49 U/L [place] Comment on above: The ALT test is perf ormed by an updated assay method. Please note that the reference intervals have been changed and are now sex specific. Anion gap [Moles/Vol] 7 mmol/L [place], [place] AST [Catalytic activity/Vol] 67 U/L High 15 - 46 U/L [place] Bilirubin Ql (U) 0.4 mg/dL 0.2 - 1.3 mg/dL [place] Calcium [Mass/Vol] 8.7 mg/dL 8.4 - 10. 4 mg/dL [place] Chloride [Moles/Vol] 112 mmol/L High 98 - 10 7 mmol/L [place] CO2 [Moles/Vol] 17 mmol/L Low 22 - 30 mmol/L [place] Creatinine [Mass/Vol] 1.84 mg/dL High 0.52 - 1.25 mg/dL [place] EGFR IF NonAfrican Lithuanian 39.7 mL/min Abnormal >60 [place] Comment on above: KDIGO guidelines pro [...] (S/P/Bld) [Vol rate/Area] 46.0 mL/min/{1.73_m2} Abnormal >60 [place], [place] Glucose [Mass/Vol] 139 mg/dL High 70 - 100 mg/dL [place] Protein [Mass/Vol] 5.3 g/dL Low 6.3 - 8.2 g/dL [place] Sodium [Moles/Vol] 136 mmol/L 135 - 145 mmol/L [place] Urea nitrogen [Mass/Vol] 30 mg/dL High 7 - 20 mg/dL [place] D-Dimer, Innovanceon 12-18-2 020 D-Dimer, Innovance [...] #### [facility] [address] [place] [address] D-Dimer, Quantitativeon 10-14 D-Dimer, Quant 0.96 mg/L High 0 - 0.5 mg/L [place] Comment on above: Innovance D-Dimer va [...] #### [facility] [address] [place] [address] Ferritin [Mass/Vol] 810 ng/mL High 18 - 464 ng/mL [place] Interpretation and review of laboratory results Abnormal [place] Test Performed by [facility], [address] [place] [address] [place], [place] Fibrinogenon 10-31-2020 Fibrinogen 455 mg/dL High 200-400 [facility] Comment on above: Performed By: #### H EMOG, CMP3M, CRP2, LDH3, FIBGN, DDI2, APTT, FERR3 #### [facility] [address] [facility] [place] [address] Fibrinogen 455 mg/dL High 200 - 400 mg/dL [place], [place] Hemogramon 10-31-2020 Erythrocyte distribution width (RBC) [Ratio] 14.0 % Normal 11.5-14.5 [facility] Comment on above: Performed By: #### H EMOG, CMP3M, CRP2, LDH3, FIBGN, DDI2, APTT, FERR3 #### [facility] [address] [place] [address] Hematocrit (Bld) [Volume fraction] 35.7 % Low 40.0-52.0 [facility] Comment on above: Performed By: #### H EMOG, CMP3M, CRP2, LDH3, FIBGN, DDI2, APTT, FERR3 #### [facility] [address] [place] [address] Hemoglobin (Bld) [Mass/Vol] 12.0 g/dL Low 13.0-18.0 [facility] Comment on above: Performed By: #### H EMOG, CMP3M, CRP2, LDH3, FIBGN, DDI2, APTT, FERR3 #### [facility] [address] [place] [address] MCH (RBC) [Entitic mass] 29.0 pg Normal 26.0-34.0 [facility] Comment on above: Performed By: #### H EMOG, CMP3M, CRP2, LDH3, FIBGN, DDI2, APTT, FERR3 #### [facility] [address] [place] [address] MCHC (RBC) [Mass/Vol] 33.7 % Normal 32.0-36.0 [facility] Comment on above: Performed By: #### H EMOG, CMP3M, CRP2, LDH3, FIBGN, DDI2, APTT, FERR3 #### [facility] [address] [place] [address] MCV (RBC) [Entitic vol] 86.3 fL Normal 80.0-98.0 [facility] Comment on above: Performed By: #### H EMOG, CMP3M, CRP2, LDH3, FIBGN, DDI2, APTT, FERR3 #### [facility] [address] [place] [address] Platelet mean volume (Bld) [Entitic vol] 7.5 fL Normal 7.4-10.4 [facility] Comment on above: Performed By: #### H EMOG, CMP3M, CRP2, LDH3, FIBGN, DDI2, APTT, FERR3 #### [facility] [address] [place] [address] Platelets (Bld) [#/Vol] 294 10*3/uL Normal 140-440 [facility] Comment on above: Performed By: #### H EMOG, CMP3M, CRP2, LDH3, FIBGN, DDI2, APTT, FERR3 #### [facility] [address] [place] [address] RBC (Bld) [#/Vol] 4.14 10*6/uL Low 4.40-5.90 [facility] Comment on above: Performed By: #### H EMOG, CMP3M, CRP2, LDH3, FIBGN, DDI2, APTT, FERR3 #### [facility] [address] [place] [address] WBC (Bld) [#/Vol] 9.5 10*3/uL Normal 3.6-10.7 [facility] Comment on above: Performed By: #### H EMOG, CMP3M, CRP2, LDH3, FIBGN, DDI2, APTT, FERR3 #### [facility] [address] [place] [address] LDHon 10-31-2020 LDH 572 U/L High 120-246 [facility] Comment on above: Performed By: #### H EMOG, CMP3M, CRP2, LDH3, FIBGN, DDI2, APTT, FERR3 #### [facility] [address] [place] [address] Lactate Dehydrogenaseon 10-14 LD 572 U/L High 120 - 246 U/L [facility], [place] Otheron 10-31-2020 Interpretation and review of laboratory results Abnormal [facility], [place] Test Performed by [place] [address] [place] [id number] [place] [address], [place] Interpretation and review of laboratory results Abnormal [facility], [place] Test Performed by [facility], [facility] [address] [place] [address] [place], [place] APTTon 10-30-2020 aPTT Coag (Bld) [Time] 47.0 s High 20.0-30.5 [facility] Comment on above: Result Comment: NOTE : The therapeutic time for Heparin anticoagulation, based on Xa activity inhibition, is an APTT of 46-80 seconds. Performed By: #### H EMOG, CMP3M, CRP2, LDH3, FIBGN, DDI2, APTT, FERR3 #### [facility] [address] [place] [address] aPTT Coag (Bld) [Time] 47 s High 20 - 30.5 s [place], [place] Comment on above: NOTE: The therapeuti c time for Heparin anticoagulation, based on Xa activity inhibition, is an APTT of 46-80 seconds. C-Reactive Proteinon 020 CRP [Mass/Vol] 27.5 mg/L High 0.0-6.0 [facility] Comment on above: Result Comment: . Performed By: #### H EMOG, CMP3M, CRP2, LDH3, FIBGN, DDI2, APTT, FERR3 #### [facility] [address] [place] [address] CRP [Mass/Vol] 27.5 mg/L High 0 - 6 mg/L [place] Comment on above: . Comp Panel [...] #### [facility] [address] [place] [address] Calcium [Mass/Vol] 8.6 mg/dL Normal 8.4-10.4 [facility] Comment on above: Performed By: #### H EMOG, CMP3M, CRP2, LDH3, FIBGN, DDI2, APTT, FERR3 #### [facility] [address] [place] [address] Glucose [Mass/Vol] 142 mg/dL High 70-100 [facility] Comment on above: Performed By: #### H EMOG, CMP3M, CRP2, LDH3, FIBGN, DDI2, APTT, FERR3 #### [facility] [address] [place] [address] Urea nitrogen [Mass/Vol] 30 mg/dL High 7-20 [facility] Comment on above: Performed By: #### H EMOG, CMP3M, CRP2, LDH3, FIBGN, DDI2, APTT, FERR3 #### [facility] [address] [place] [address] ALP [Catalytic activity/Vol] 75 U/L Normal 38-126 [facility] Comment on above: Performed By: #### H EMOG, CMP3M, CRP2, LDH3, FIBGN, DDI2, APTT, FERR3 #### [facility] [address] [place] [address] Anion gap [Moles/Vol] 8 Normal [facility] Comment on above: Performed By: #### H EMOG, CMP3M, CRP2, LDH3, FIBGN, DDI2, APTT, FERR3 #### [facility] [address] [place] [address] AST [Catalytic activity/Vol] 67 U/L High 15-46 [facility] Comment on above: Performed By: #### H EMOG, CMP3M, CRP2, LDH3, FIBGN, DDI2, APTT, FERR3 #### [facility] [address] [place] [address] Bilirubin [Mass/Vol] 0.3 mg/dL Normal 0.2-1.3 [facility] Comment on above: Performed By: #### H EMOG, CMP3M, CRP2, LDH3, FIBGN, DDI2, APTT, FERR3 #### [facility] [address] [place] [address] CO2 [Moles/Vol] 18 mmol/L Low 22-30 [facility] Comment on above: Performed By: #### H EMOG, CMP3M, CRP2, LDH3, FIBGN, DDI2, APTT, FERR3 #### [facility] [address] [place] [address] Creatinine [Mass/Vol] 2.01 mg/dL High 0.52-1.25 [facility] Comment on above: Performed By: #### H EMOG, CMP3M, CRP2, LDH3, FIBGN, DDI2, APTT, FERR3 #### [facility] [address] [place] [address] GFR/1.73 sq M predicted among blacks MDRD (S/P/Bld) [Vol rate/Area] 41.3 mL/min/{1.73_m2} Abnormal >60 [facility] Comment on above: Performed By: #### H EMOG, CMP3M, CRP2, LDH3, FIBGN, DDI2, APTT, FERR3 #### [facility] [address] [place] [address] GFR/1.73 sq M predicted among non-blacks MDRD [...] [facility] [address] [place] [address] Protein [Mass/Vol] 5.7 g/dL Low 6.3-8.2 [facility] Comment on above: Performed By: #### H EMOG, CMP3M, CRP2, LDH3, FIBGN, DDI2, APTT, FERR3 #### [facility] [address] [place] [address] Potassium [Moles/Vol] 4.0 mmol/L Normal 3.5-5.1 [facility] Comment on above: Performed By: #### H EMOG, CMP3M, CRP2, LDH3, FIBGN, DDI2, APTT, FERR3 #### [facility] [address] [place] [address] Albumin [Mass/Vol] 2.9 g/dL Low 3.5-5.0 [facility] Comment on above: Performed By: #### H EMOG, CMP3M, CRP2, LDH3, FIBGN, DDI2, APTT, FERR3 #### [facility] [address] [place] [address] Chloride [Moles/Vol] 114 mmol/L High 98-107 [facility] Comment on above: Performed By: #### H EMOG, CMP3M, CRP2, LDH3, FIBGN, DDI2, APTT, FERR3 #### [facility] [address] [place] [address] Sodium [Moles/Vol] 140 mmol/L Normal 135-145 [facility] Comment on above: Performed By: #### H EMOG, CMP3M, CRP2, LDH3, FIBGN, DDI2, APTT, FERR3 #### [facility] [address] [place] [address] Comprehensive Metabolic Pane l w/ Reflex to MGon 10-30-2020 Albumin [Mass/Vol] 2.9 g/dL Low 3.5 - 5 g/dL [place] ALP [Catalytic activity/Vol] 75 U/L 38 - 126 U/L [place] ALT [Catalytic activity/Vol] 67 U/L High 0 - 49 U/L [place] Comment on above: The ALT test is perf ormed by an updated assay method. Please note that the reference intervals have been changed and are now sex specific. Anion gap [Moles/Vol] 8 mmol/L [place], [place] AST [Catalytic activity/Vol] 67 U/L High 15 - 46 U/L [place] Bilirubin Ql (U) 0.3 mg/dL 0.2 - 1.3 mg/dL [place] Calcium [Mass/Vol] 8.6 mg/dL 8.4 - 10. 4 mg/dL [place] Chloride [Moles/Vol] 114 mmol/L High 98 - 10 7 mmol/L [place] CO2 [Moles/Vol] 18 mmol/L Low 22 - 30 mmol/L [place] Creatinine [Mass/Vol] 2.01 mg/dL High 0.52 - 1.25 mg/dL [place], [place] EGFR IF NonAfrican Lithuanian 35.6 mL/min Abnormal >60 [place], [place] Comment on above: KDIGO guidelines pro [...] (S/P/Bld) [Vol rate/Area] 41.3 mL/min/{1.73_m2} Abnormal >60 [place] Glucose [Mass/Vol] 142 mg/dL High 70 - 100 mg/dL [place] Potassium [Moles/Vol] 4.0 mmol/L 3.5 - 5.1 mmol/L [place] Protein [Mass/Vol] 5.7 g/dL Low 6.3 - 8.2 g/dL [place] Sodium [Moles/Vol] 140 mmol/L 135 - 145 mmol/L [place], [place] Urea nitrogen [Mass/Vol] 30 mg/dL High 7 - 20 mg/dL [place] D-Dimer, Innovanceon 020 D-Dimer, Innovance 0.89 [...] #### [facility] [address] [place] [address] D-Dimer, Quantitativeon 10-14 D-Dimer, Quant 0.89 mg/L High 0 - 0.5 mg/L [place], [place] Comment on above: Innovance D-Dimer va [...] #### [facility] [address] [place] [address] Ferritin [Mass/Vol] 885 ng/mL High 18 - 464 ng/mL [place] Interpretation and review of laboratory results Abnormal [place] Test Performed by [facility], [address] [place] [address] [place], [place] Fibrinogenon 10-30-2020 Fibrinogen 456 mg/dL High 200-400 [facility] Comment on above: Performed By: #### H EMOG, CMP3M, CRP2, LDH3, FIBGN, DDI2, APTT, FERR3 #### [facility] [address] [place] [address] Fibrinogen 456 mg/dL High 200 - 400 mg/dL [place], [place] LDHon 10-30-2020 LDH 613 U/L High 120-246 [facility] Comment on above: Performed By: #### H EMOG, CMP3M, CRP2, LDH3, FIBGN, DDI2, APTT, FERR3 #### [facility] [address] [place] [address] Lactate Dehydrogenaseon 10-14 LD 613 U/L High 120 - 246 U/L [place], [place] Otheron 10-30-2020 Interpretation and review of laboratory results Abnormal [place] Test Performed by [facility], [address] [place] [address] [place], [place] Interpretation and review of laboratory results Abnormal [place] Test Performed by [facility], [address] [place] [address] [place], [place] APTTon 10-29-2020 aPTT Coag (Bld) [Time] 35.1 s High 20.0-30.5 [facility] Comment on above: Result Comment: NOTE : The therapeutic time for Heparin anticoagulation, based on Xa activity inhibition, is an APTT of 46-80 seconds. Performed By: #### H EMOG, CMP3M, CRP2, LDH3, FIBGN, DDI2, APTT, FERR3 #### [facility] [address] [place] [address] aPTT Coag (Bld) [Time] 35.1 s High 20 - 30.5 s [place] Comment on above: NOTE: The therapeuti c time for Heparin anticoagulation, based on Xa activity inhibition, is an APTT of 46-80 seconds. C-Reactive Proteinon 020 CRP [Mass/Vol] 34.9 mg/L High 0.0-6.0 [facility] Comment on above: Result Comment: . Performed By: #### H EMOG, CMP3M, CRP2, LDH3, FIBGN, DDI2, APTT, FERR3 #### [facility] [address] [place] [address] CRP [Mass/Vol] 34.9 mg/L High 0 - 6 mg/L [place], [place] Comment on above: . CBCon 10-29-2020 Erythrocyte distribution width (RBC) [Ratio] 14.2 % 11.5 - 14.5 % [place] Hematocrit (Bld) [Volume fraction] 37.3 % Low 40 - 52 % [place] Hemoglobin (Bld) [Mass/Vol] 12.6 g/dL Low 13 - 18 g/dL [place] Interpretation and review of laboratory results Abnormal [place] MCH (RBC) [Entitic mass] 29.2 pg 26 - 34 pg [place] MCHC (RBC) [Mass/Vol] 33.7 % 32 - 36 % [place] MCV (RBC) [Entitic vol] 86.7 fL 80 - 98 fL [place] Platelet mean volume (Bld) [Entitic vol] 7.6 fL 7.4 - 10.4 fL [place] Platelets (Bld) [#/Vol] 255 10*3/uL 140 - 440 10*3/uL [place] RBC (Bld) [#/Vol] 4.30 10*6/uL Low 4.4 - 5.9 10*6/uL [place] WBC (Bld) [#/Vol] 7.8 10*3/uL 3.6 - 10.7 10*3/uL [place] Test Performed by [facility], [address], [place], [place] [address] [place] CBC auto differentialon 10-14 Absolute Baso # 0.0 10*3/uL 0 - 0.2 10*3/uL [place] Absolute Neut # 3.5 10*3/uL 1.8 - 7 10*3/uL [place] Basophils/100 WBC (Bld) 0.3 % 0 - 2 % [place] Eosinophils (Bld) [#/Vol] 0.0 10*3/uL 0 - 0.5 10*3/uL [place] Eosinophils/100 WBC (Bld) 0.0 % Low 1 - 6 % [place] Erythrocyte distribution width (RBC) [Ratio] 13.8 % 11.5 - 14.5 % [place] Granulocytes/100 WBC (Bld) 79.4 % 40 - 80 % [place] Hematocrit (Bld) [Volume fraction] 36.7 % Low 40 - 52 % [place] Hemoglobin (Bld) [Mass/Vol] 12.2 g/dL Low 13 - 18 g/dL [place] Interpretation and review of laboratory results Abnormal [place] Lymphocytes (Bld) [#/Vol] 0.4 10*3/uL Low 1 - 4.3 10*3/uL [place] Lymphocytes/100 WBC (Bld) 8.8 % Low 20 - 40 % [place] MCH (RBC) [Entitic mass] 29.1 pg 26 - 34 pg [place] MCHC (RBC) [Mass/Vol] 33.1 % 32 - 36 % [place] MCV (RBC) [Entitic vol] 87.8 fL 80 - 98 fL [place] Monocytes (Bld) [#/Vol] 0.5 10*3/uL 0 - 0.8 10*3/uL [place], [place] Monocytes/100 WBC (Bld) 11.5 % High 2 - 10 % [place] Platelet mean volume (Bld) [Entitic vol] 7.9 fL 7.4 - 10.4 fL [place] Platelets (Bld) [#/Vol] 231 10*3/uL 140 - 440 10*3/uL [place] RBC (Bld) [#/Vol] 4.19 10*6/uL Low 4.4 - 5.9 10*6/uL [place] WBC (Bld) [#/Vol] 4.4 10*3/uL 3.6 - 10.7 10*3/uL [place], [place] Test Performed by [facility], [address] [place] [address] [place], [place] COVID and Resp PCR Panelon 1 12-30-2019 COVID and Resp PCR Panel COVID and Resp PCR Panel --> Status: F NEGATIVE: No targets were detected by the [employer] (PR[employer]) Upper Respiratory Pathogens PCR Panel. _ Expected Result: Not Detected The [employer] ([employer]) Upper Respiratory Pathogens PCR Panel can detect [...] management decisions. This assay was developed by [employer] and distributed under an Emergency Use Authorization (EUA) granted by the FDA for the qualitative detection of SARS-CoV-2 nucleic acid. Provider and patient fact sheets can be found at https://www.fda.gov/media/ 996601/download and https://www.fda.gov/media/ 420464/download. Respiratory Pathogens PCR Panel. _ Expected Result: Not Detected The [employer] ([facility]) Upper Respiratory Pathogens PCR Panel can detect [...] management decisions. This assay was developed by [employer] and distributed under an Emergency Use Authorization (EUA) granted by the FDA for the qualitative detection of SARS-CoV-2 nucleic acid. Provider and patient fact sheets can be found at https://www.fda.gov/media/ 400909/download and https://www.fda.gov/media/ 252157/download. Normal [facility] Comment on above: Performed By: #### H EMOG, CMP3M, CRP2, LDH3, FIBGN, DDI2, APTT, FERR3 #### [facility] [address] [place] [address] CTA CHEST W WO CONTRASTon Patient Name: REGGIE WILSON Computed Tomography ACCESSION EXAM DATE/TIME PROCEDURE ORDERING PROVIDER [id number] 10/29/2020 16:29 EST CTA Chest w/ + w/o MD EMILY, FARRUKH MCCORMICK Contrast CPT code 73632 [id number] Reason For Exam (CTA Chest w/ + w/o Contrast) Hypoxia and elevated D-dimer, possible COVID+ and PE? Report Reasons for examination: Hypoxia, elevated d-dimer, Covid 19. CT scan of the chest were performed with bolus contrast and high resolution scans for CT pulmonary angiographic study, with images post-processed by myself on [employer] workstation, with 3D - volume rendered CT [...] WILLIAM Transcribed Date and Time: 10/29/2020 4:51 [facility], [place] Dar Pearson Incoming Radiology Results From [facility] - 10/29/2020 4:51 PM EST Patient Name: REGGIE LEÓN Computed Tomography ACCESSION EXAM DATE/TIME PROCEDURE ORDERING PROVIDER [id number] 10/29/2020 16:29 EST CTA Chest w/ + w/o MD EMILY, FARRUKH MCCORMICK Contrast CPT code 23715 Q9967 Reason For Exam (CTA Chest w/ + w/o Contrast) Hypoxia and elevated D-dimer, possible COVID+ and PE? Report Reasons for examination: Hypoxia, elevated d-dimer, Covid 19. CT scan of the chest were performed with bolus contrast and high resolution scans for CT pulmonary angiographic study, with images post-processed by myself on [employer] workstation, with 3D - volume rendered CT [...] WILLIAM Transcribed Date and Time: 10/29/2020 4:51 [facility], [place] CTA Chest w/ + w/o Contrasto n 10-29-2020 CTA Chest w/ + w/o Contrast Patient Name: REGGIE LEÓN Computed Tomography ACCESSION EXAM DATE/TIME PROCEDURE ORDERING PROVIDER [id number] 10/29/2020 16:29 EST CTA Chest w/ + w/o MD EMILY, CINDYJAQUELINE ANNY Contrast CPT code 42460 Q9967 Reason For Exam (CTA Chest w/ + w/o Contrast) Hypoxia and elevated D-dimer, possible COVID+ and PE? Report Reasons for examination: Hypoxia, elevated d-dimer, Covid 19. CT scan of the chest were performed with bolus contrast and high resolution scans for CT pulmonary angiographic study, with images post-processed by myself on [employer] workstation, with 3D - volume rendered CT [...] CRP2, LDH3, FIBGN, DDI2, APTT, FERR3 #### [facility] [address] [place] [address] ALT [Catalytic activity/Vol] 67 U/L High 0-49 [facility] Comment on above: Result Comment: The ALT test is performed by an updated assay method. Please note that the reference intervals have been changed and are now sex specific. Performed By: #### H EMOG, CMP3M, CRP2, LDH3, FIBGN, DDI2, APTT, FERR3 #### [facility] [address] [place] [address] Anion gap [Moles/Vol] 7 Normal [facility] Comment on above: Performed By: #### H EMOG, CMP3M, CRP2, LDH3, FIBGN, DDI2, APTT, FERR3 #### [facility] [address] [place] [address] AST [Catalytic activity/Vol] 88 U/L High 15-46 [facility] Comment on above: Performed By: #### H EMOG, CMP3M, CRP2, LDH3, FIBGN, DDI2, APTT, FERR3 #### [facility] [address] [place] [address] Bilirubin [Mass/Vol] 0.6 mg/dL Normal 0.2-1.3 [facility] Comment on above: Performed By: #### H EMOG, CMP3M, CRP2, LDH3, FIBGN, DDI2, APTT, FERR3 #### [facility] [address] [place] [address] Calcium [Mass/Vol] 8.9 mg/dL Normal 8.4-10.4 [facility] Comment on above: Performed By: #### H EMOG, CMP3M, CRP2, LDH3, FIBGN, DDI2, APTT, FERR3 #### [facility] [address] [place] [address] CO2 [Moles/Vol] 18 mmol/L Low 22-30 [facility] Comment on above: Performed By: #### H EMOG, CMP3M, CRP2, LDH3, FIBGN, DDI2, APTT, FERR3 #### [facility] [address] [place] [address] Creatinine [Mass/Vol] 2.24 mg/dL High 0.52-1.25 [facility] Comment on above: Performed By: #### H EMOG, CMP3M, CRP2, LDH3, FIBGN, DDI2, APTT, FERR3 #### [facility] [address] [place] [address] GFR/1.73 sq M predicted among blacks MDRD (S/P/Bld) [Vol rate/Area] 36.2 mL/min/{1.73_m2} Abnormal >60 [facility] Comment on above: Performed By: #### H EMOG, CMP3M, CRP2, LDH3, FIBGN, DDI2, APTT, FERR3 #### [facility] [address] [place] [address] GFR/1.73 sq M predicted among non-blacks MDRD [...] CRP2, LDH3, FIBGN, DDI2, APTT, FERR3 #### [facility] [address] [place] [address] Glucose [Mass/Vol] 132 mg/dL High 70-100 [facility] Comment on above: Performed By: #### H EMOG, CMP3M, CRP2, LDH3, FIBGN, DDI2, APTT, FERR3 #### [facility] [address] [place] [address] Protein [Mass/Vol] 6.0 g/dL Low 6.3-8.2 [facility] Comment on above: Performed By: #### H EMOG, CMP3M, CRP2, LDH3, FIBGN, DDI2, APTT, FERR3 #### [facility] [address] [place] [address] Urea nitrogen [Mass/Vol] 33 mg/dL High 7-20 [facility] Comment on above: Performed By: #### H EMOG, CMP3M, CRP2, LDH3, FIBGN, DDI2, APTT, FERR3 #### [facility] [address] [place] [address] Potassium [Moles/Vol] 3.9 mmol/L Normal 3.5-5.1 [facility] Comment on above: Performed By: #### H EMOG, CMP3M, CRP2, LDH3, FIBGN, DDI2, APTT, FERR3 #### [facility] [address] [place] [address] Albumin [Mass/Vol] 3.2 g/dL Low 3.5-5.0 [facility] Comment on above: Performed By: #### H EMOG, CMP3M, CRP2, LDH3, FIBGN, DDI2, APTT, FERR3 #### [facility] [address] [place] [address] Chloride [Moles/Vol] 112 mmol/L High 98-107 [facility] Comment on above: Performed By: #### H EMOG, CMP3M, CRP2, LDH3, FIBGN, DDI2, APTT, FERR3 #### [facility] [address] [place] [address] Sodium [Moles/Vol] 137 mmol/L Normal 135-145 [facility] Comment on above: Performed By: #### H EMOG, CMP3M, CRP2, LDH3, FIBGN, DDI2, APTT, FERR3 #### [facility] [address] [place] [address] ALP [Catalytic activity/Vol] 81 U/L Normal 38-126 [facility] Comment on above: Performed By: #### H EMOG, CMP3M, CRP2, LDH3, FIBGN, DDI2, APTT, FERR3 #### [facility] [address] [place] [address] ALT [Catalytic activity/Vol] 67 U/L High 0-49 [facility] Comment on above: Result Comment: The ALT test is performed by an updated assay method. Please note that the reference intervals have been changed and are now sex specific. Performed By: #### H EMOG, CMP3M, CRP2, LDH3, FIBGN, DDI2, APTT, FERR3 #### [facility] [address] [place] [address] Anion gap [Moles/Vol] 9 Normal [facility] Comment on above: Performed By: #### H EMOG, CMP3M, CRP2, LDH3, FIBGN, DDI2, APTT, FERR3 #### [facility] [address] [place] [address] AST [Catalytic activity/Vol] 86 U/L High 15-46 [facility] Comment on above: Performed By: #### H EMOG, CMP3M, CRP2, LDH3, FIBGN, DDI2, APTT, FERR3 #### [facility] [address] [place] [address] Calcium [Mass/Vol] 8.5 mg/dL Normal 8.4-10.4 [facility] Comment on above: Performed By: #### H EMOG, CMP3M, CRP2, LDH3, FIBGN, DDI2, APTT, FERR3 #### [facility] [address] [place] [address] CO2 [Moles/Vol] 17 mmol/L Low 22-30 [facility] Comment on above: Performed By: #### H EMOG, CMP3M, CRP2, LDH3, FIBGN, DDI2, APTT, FERR3 #### [facility] [address] [place] [address] Glucose [Mass/Vol] 139 mg/dL High 70-100 [facility] Comment on above: Performed By: #### H EMOG, CMP3M, CRP2, LDH3, FIBGN, DDI2, APTT, FERR3 #### [facility] [address] [place] [id number] Protein [Mass/Vol] 5.8 g/dL Low 6.3-8.2 [facility] Comment on above: Performed By: #### H EMOG, CMP3M, CRP2, LDH3, FIBGN, DDI2, APTT, FERR3 #### [facility] [address] [place] [address] Urea nitrogen [Mass/Vol] 31 mg/dL High 7-20 [facility] Comment on above: Performed By: #### H EMOG, CMP3M, CRP2, LDH3, FIBGN, DDI2, APTT, FERR3 #### [facility] [address] [place] [address] Bilirubin [Mass/Vol] 0.5 mg/dL Normal 0.2-1.3 [facility] Comment on above: Performed By: #### H EMOG, CMP3M, CRP2, LDH3, FIBGN, DDI2, APTT, FERR3 #### [facility] [address] [place] [address] Creatinine [Mass/Vol] 2.37 mg/dL High 0.52-1.25 [facility] Comment on above: Performed By: #### H EMOG, CMP3M, CRP2, LDH3, FIBGN, DDI2, APTT, FERR3 #### [facility] [address] [place] [address] GFR/1.73 sq M predicted among blacks MDRD (S/P/Bld) [Vol rate/Area] 33.9 mL/min/{1.73_m2} Abnormal >60 [facility] Comment on above: Performed By: #### H EMOG, CMP3M, CRP2, LDH3, FIBGN, DDI2, APTT, FERR3 #### [facility] [address] [place] [address] GFR/1.73 sq M predicted among non-blacks MDRD [...] FERR3 #### [facility] [address] [place] [address] Potassium [Moles/Vol] 4.3 mmol/L Normal 3.5-5.1 [facility] Comment on above: Performed By: #### H EMOG, CMP3M, CRP2, LDH3, FIBGN, DDI2, APTT, FERR3 #### [facility] [address] [place] [address] Sodium [Moles/Vol] 136 mmol/L Normal 135-145 [facility] Comment on above: Performed By: #### H EMOG, CMP3M, CRP2, LDH3, FIBGN, DDI2, APTT, FERR3 #### [facility] [address] [place] [address] Albumin [Mass/Vol] 3.0 g/dL Low 3.5-5.0 [facility] Comment on above: Performed By: #### H EMOG, CMP3M, CRP2, LDH3, FIBGN, DDI2, APTT, FERR3 #### [facility] [address] [place] [address] Chloride [Moles/Vol] 110 mmol/L High 98-107 [facility] Comment on above: Performed By: #### H EMOG, CMP3M, CRP2, LDH3, FIBGN, DDI2, APTT, FERR3 #### [facility] [address] [place] [address] Comprehensive Metabolic Pane l w/ Reflex to MGon 10-29-2020 Albumin [Mass/Vol] 3.2 g/dL Low 3.5 - 5 g/dL [place], [place] ALP [Catalytic activity/Vol] 71 U/L 38 - 126 U/L [place] ALT [Catalytic activity/Vol] 67 U/L High 0 - 49 U/L [place] Comment on above: The ALT test is perf ormed by an updated assay method. Please note that the reference intervals have been changed and are now sex specific. Anion gap [Moles/Vol] 7 mmol/L [place], [place] AST [Catalytic activity/Vol] 88 U/L High 15 - 46 U/L [place] Bilirubin Ql (U) 0.6 mg/dL 0.2 - 1.3 mg/dL [place] Calcium [Mass/Vol] 8.9 mg/dL 8.4 - 10. 4 mg/dL [place] Chloride [Moles/Vol] 112 mmol/L High 98 - 10 7 mmol/L [place] CO2 [Moles/Vol] 18 mmol/L Low 22 - 30 mmol/L [place] Creatinine [Mass/Vol] 2.24 mg/dL High 0.52 - 1.25 mg/dL [place] EGFR IF NonAfrican [place]ian 31.3 mL/min Abnormal >60 [place] Comment on above: KDIGO guidelines pro [...] (S/P/Bld) [Vol rate/Area] 36.2 mL/min/{1.73_m2} Abnormal >60 [place] Glucose [Mass/Vol] 132 mg/dL High 70 - 100 mg/dL [place] Interpretation and review of laboratory results Abnormal [place] Potassium [Moles/Vol] 3.9 mmol/L 3.5 - 5.1 mmol/L [place] Protein [Mass/Vol] 6.0 g/dL Low 6.3 - 8.2 g/dL [place] Sodium [Moles/Vol] 137 mmol/L 135 - 145 mmol/L [place] Urea nitrogen [Mass/Vol] 33 mg/dL High 7 - 20 mg/dL [place] Test Performed by [facility], [address] [place], [place] [address] [place] Albumin [Mass/Vol] 3.0 g/dL Low 3.5 - 5 g/dL [place] ALP [Catalytic activity/Vol] 81 U/L 38 - 126 U/L [place] ALT [Catalytic activity/Vol] 67 U/L High 0 - 49 U/L [place] Comment on above: The ALT test is perf ormed by an updated assay method. Please note that the reference intervals have been changed and are now sex specific. Anion gap [Moles/Vol] 9 mmol/L [place] AST [Catalytic activity/Vol] 86 U/L High 15 - 46 U/L [place] Bilirubin Ql (U) 0.5 mg/dL 0.2 - 1.3 mg/dL [place] Calcium [Mass/Vol] 8.5 mg/dL 8.4 - 10. 4 mg/dL [place] Chloride [Moles/Vol] 110 mmol/L High 98 - 10 7 mmol/L [place] CO2 [Moles/Vol] 17 mmol/L Low 22 - 30 mmol/L [place] Creatinine [Mass/Vol] 2.37 mg/dL High 0.52 - 1.25 mg/dL [place] EGFR IF NonAfrican [place]ian 29.2 mL/min Abnormal >60 [place] Comment on above: KDIGO guidelines pro [...] (S/P/Bld) [Vol rate/Area] 33.9 mL/min/{1.73_m2} Abnormal >60 [place] Glucose [Mass/Vol] 139 mg/dL High 70 - 100 mg/dL [place] Potassium [Moles/Vol] 4.3 mmol/L 3.5 - 5.1 mmol/L [place] Protein [Mass/Vol] 5.8 g/dL Low 6.3 - 8.2 g/dL [place] Sodium [Moles/Vol] 136 mmol/L 135 - 145 mmol/L [place] Urea nitrogen [Mass/Vol] 31 mg/dL High 7 - 20 mg/dL [place] D-Dimer, Innovanceon 12-16-2 020 D-Dimer, Innov[employer] 1.54 mg/L High 0.00-0.50 [facility] Comment on above: Result Comment: Inno quach D-Dimer values of <0.50 mg/L FEU can be used in combination with a pre-test probability model (e.g. Well's) to exclude pulmonary embolism (PE) disease, as well as an aid in the diagnosis of deep vein thrombosis (DVT). Performed By: #### H EMOG, CMP3M, CRP2, LDH3, FIBGN, DDI2, APTT, FERR3 #### [facility] [address] [place] [address] D-Dimer, [employer] 1.23 mg/L High 0.00-0.50 [facility] Comment on [...] FERR3 #### [facility] [address] [place] [address] D-Dimer, Quantitativeon 12-1 D-Dimer, Quant 1.54 mg/L High 0 - 0.5 mg/L [facility] [place] Comment on above: [employer] D-Dimer va lues of <0.50 mg/L FEU can be used in combination with a pre-test probability model (e.g. Well's) to exclude pulmonary embolism (PE) disease, as well as an aid in the diagnosis of deep vein thrombosis (DVT). D-Dimer, Quant 1.23 mg/L High 0 - 0.5 mg/L [facility] Comment on above: [employer] D-Dimer va lues of <0.50 mg/L FEU can be used in combination with a pre-test probability model (e.g. Well's) to exclude pulmonary embolism (PE) disease, as well as an aid in the diagnosis of deep vein thrombosis (DVT). EKG 12 Lead - Chest Painon 1 12-30-2019 Michel, [facility] Incoming Cardiology Results From [facility] - 10/29/2020 9:41 AM EST [facility] Test Date: 2020-10-28 Pat Name: Reggie León Department: 2AED Room: 468 Gender: M Anesthesia Assistant: PARESH : 1965 Requested By: ANDREW SILVER Order Number: [id number] Reading MD: Usama Johnston Intervals [place] Rate: 85 P: 15 DE: 184 QRS: -12 QRSD: 104 T: 73 QT: 408 QTc: 486 Interpretive Statements SINUS RHYTHM Electronically Signed On 10-29-2020 9:40:09 EST by [facility] ER Test Date: 2020-10-28 Pat Name: Reggie León Department: 2AED Room: 468 Gender: M Anesthesia Assistant: PARESH : 1965 Requested By: ANDREW SILVER Order Number: [id number] Reading MD: Usama Cedillo Measurements Intervals [place] Rate: 85 P: 15 DE: 184 QRS: -12 QRSD: 104 T: 73 QT: 408 QTc: 486 Interpretive Statements SINUS RHYTHM Electronically Signed On 10-29-2020 9:40:09 EST by [facility] Ferritinon 10-29-2020 Ferritin [Mass/Vol] 714 ng/mL High 18-464 [facility] Comment on above: Performed By: #### H EMOG, CMP3M, CRP2, LDH3, FIBGN, DDI2, APTT, FERR3 #### [facility] [address] [place] [address] Ferritin [Mass/Vol] 714 ng/mL High 18 - 464 ng/mL [place], [place] Interpretation and review of laboratory results Abnormal [place] Test Performed by [facility], [address], [place], [place] [address] [place] Fibrinogenon 10-29-2020 Fibrinogen 534 mg/dL High 200-400 [facility] Comment on above: Performed By: #### H EMOG, CMP3M, CRP2, LDH3, FIBGN, DDI2, APTT, FERR3 #### [facility] [address] [place] [address] Fibrinogen 534 mg/dL High 200 - 400 mg/dL [place] Fibrinogen 587 mg/dL High 200-400 [facility] Comment on above: Performed By: #### H EMOG, CMP3M, CRP2, LDH3, FIBGN, DDI2, APTT, FERR3 #### [facility] [address] [place] [id number] Fibrinogen 587 mg/dL High 200 - 400 mg/dL [place] Hemogramon 10-29-2020 Erythrocyte distribution width (RBC) [Ratio] 14.2 % Normal 11.5-14.5 [facility] Comment on above: Performed By: #### H EMOG, CMP3M, CRP2, LDH3, FIBGN, DDI2, APTT, FERR3 #### [facility] [address] [place] [id number] Hematocrit (Bld) [Volume fraction] 37.3 % Low 40.0-52.0 [facility] Comment on above: Performed By: #### H EMOG, CMP3M, CRP2, LDH3, FIBGN, DDI2, APTT, FERR3 #### [facility] [address] [place] [address] Hemoglobin (Bld) [Mass/Vol] 12.6 g/dL Low 13.0-18.0 [facility] Comment on above: Performed By: #### H EMOG, CMP3M, CRP2, LDH3, FIBGN, DDI2, APTT, FERR3 #### [facility] [address] [place] [id number] MCH (RBC) [Entitic mass] 29.2 pg Normal 26.0-34.0 [facility] Comment on above: Performed By: #### H EMOG, CMP3M, CRP2, LDH3, FIBGN, DDI2, APTT, FERR3 #### [facility] [address] [place] [address] MCHC (RBC) [Mass/Vol] 33.7 % Normal 32.0-36.0 [facility] Comment on above: Performed By: #### H EMOG, CMP3M, CRP2, LDH3, FIBGN, DDI2, APTT, FERR3 #### [facility] [address] [place] [address] MCV (RBC) [Entitic vol] 86.7 fL Normal 80.0-98.0 [facility] Comment on above: Performed By: #### H EMOG, CMP3M, CRP2, LDH3, FIBGN, DDI2, APTT, FERR3 #### [facility] [address] [place] [id number] Platelet mean volume (Bld) [Entitic vol] 7.6 fL Normal 7.4-10.4 [facility] Comment on above: Performed By: #### H EMOG, CMP3M, CRP2, LDH3, FIBGN, DDI2, APTT, FERR3 #### [facility] [address] [place] [id number] Platelets (Bld) [#/Vol] 255 10*3/uL Normal 140-440 [facility] Comment on above: Performed By: #### H EMOG, CMP3M, CRP2, LDH3, FIBGN, DDI2, APTT, FERR3 #### [facility] [address] [place] [id number] RBC (Bld) [#/Vol] 4.30 10*6/uL Low 4.40-5.90 [facility] Comment on above: Performed By: #### H EMOG, CMP3M, CRP2, LDH3, FIBGN, DDI2, APTT, FERR3 #### [facility] [address] [place] [address] WBC (Bld) [#/Vol] 7.8 10*3/uL Normal 3.6-10.7 [facility] Comment on above: Performed By: #### H EMOG, CMP3M, CRP2, LDH3, FIBGN, DDI2, APTT, FERR3 #### [facility] [address] [place] [id number] Hemogram w/ Autodiffon 10-29 Abs Baso Cnt 0.0 10*3/uL Normal 0.0-0.2 [facility] Comment on above: Performed By: #### H EMOG, CMP3M, CRP2, LDH3, FIBGN, DDI2, APTT, FERR3 #### [facility] [address] [place] [address] Abs Neutrophile Cnt 3.5 10*3/uL Normal 1.8-7.0 [facility] Comment on above: Performed By: #### H EMOG, CMP3M, CRP2, LDH3, FIBGN, DDI2, APTT, FERR3 #### [facility] [address] [place] [address] Basophils/100 WBC (Bld) 0.3 % Normal 0.0-2.0 [facility] Comment on above: Performed By: #### H EMOG, CMP3M, CRP2, LDH3, FIBGN, DDI2, APTT, FERR3 #### [facility] [address] [place] [address] Eosinophils (Bld) [#/Vol] 0.0 10*3/uL Normal 0.0-0.5 [facility] Comment on above: Performed By: #### H EMOG, CMP3M, CRP2, LDH3, FIBGN, DDI2, APTT, FERR3 #### [facility] [address] [place] [address] Eosinophils/100 WBC (Bld) 0.0 % Low 1.0-6.0 [facility] Comment on above: Performed By: #### H EMOG, CMP3M, CRP2, LDH3, FIBGN, DDI2, APTT, FERR3 #### [facility] [address] [place] [address] Erythrocyte distribution width (RBC) [Ratio] 13.8 % Normal 11.5-14.5 [facility] Comment on above: Performed By: #### H EMOG, CMP3M, CRP2, LDH3, FIBGN, DDI2, APTT, FERR3 #### [facility] [address] [place] [address] Granulocytes/100 WBC (Bld) 79.4 % Normal 40.0-80.0 [facility] Comment on above: Performed By: #### H EMOG, CMP3M, CRP2, LDH3, FIBGN, DDI2, APTT, FERR3 #### [facility] [address] [place] [address] Hematocrit (Bld) [Volume fraction] 36.7 % Low 40.0-52.0 [facility] Comment on above: Performed By: #### H EMOG, CMP3M, CRP2, LDH3, FIBGN, DDI2, APTT, FERR3 #### [facility] [address] [place] [address] Hemoglobin (Bld) [Mass/Vol] 12.2 g/dL Low 13.0-18.0 [facility] Comment on above: Performed By: #### H EMOG, CMP3M, CRP2, LDH3, FIBGN, DDI2, APTT, FERR3 #### [facility] [address] [place] [address] Lymphocytes (Bld) [#/Vol] 0.4 10*3/uL Low 1.0-4.3 [facility] Comment on above: Performed By: #### H EMOG, CMP3M, CRP2, LDH3, FIBGN, DDI2, APTT, FERR3 #### [facility] [address] [place] [address] Lymphocytes/100 WBC (Bld) 8.8 % Low 20.0-40.0 [facility] Comment on above: Performed By: #### H EMOG, CMP3M, CRP2, LDH3, FIBGN, DDI2, APTT, FERR3 #### [facility] [address] [place] [address] MCH (RBC) [Entitic mass] 29.1 pg Normal 26.0-34.0 [facility] Comment on above: Performed By: #### H EMOG, CMP3M, CRP2, LDH3, FIBGN, DDI2, APTT, FERR3 #### [facility] [address] [place] [address] MCHC (RBC) [Mass/Vol] 33.1 % Normal 32.0-36.0 [facility] Comment on above: Performed By: #### H EMOG, CMP3M, CRP2, LDH3, FIBGN, DDI2, APTT, FERR3 #### [facility] [address] [place] [address] MCV (RBC) [Entitic vol] 87.8 fL Normal 80.0-98.0 [facility] Comment on above: Performed By: #### H EMOG, CMP3M, CRP2, LDH3, FIBGN, DDI2, APTT, FERR3 #### [facility] [address] [place] [address] Monocytes (Bld) [#/Vol] 0.5 10*3/uL Normal 0.0-0.8 [facility] Comment on above: Performed By: #### H EMOG, CMP3M, CRP2, LDH3, FIBGN, DDI2, APTT, FERR3 #### [facility] [address] [place] [address] Monocytes/100 WBC (Bld) 11.5 % High 2.0-10.0 [facility] Comment on above: Performed By: #### H EMOG, CMP3M, CRP2, LDH3, FIBGN, DDI2, APTT, FERR3 #### [facility] [address] [place] [id number] Platelet mean volume (Bld) [Entitic vol] 7.9 fL Normal 7.4-10.4 [facility] Comment on above: Performed By: #### H EMOG, CMP3M, CRP2, LDH3, FIBGN, DDI2, APTT, FERR3 #### [facility] [address] [place] [id number] Platelets (Bld) [#/Vol] 231 10*3/uL Normal 140-440 [facility] Comment on above: Performed By: #### H EMOG, CMP3M, CRP2, LDH3, FIBGN, DDI2, APTT, FERR3 #### [facility] [address] [place] [id number] RBC (Bld) [#/Vol] 4.19 10*6/uL Low 4.40-5.90 [facility] Comment on above: Performed By: #### H EMOG, CMP3M, CRP2, LDH3, FIBGN, DDI2, APTT, FERR3 #### [facility] [address] [place] [address] WBC (Bld) [#/Vol] 4.4 10*3/uL Normal 3.6-10.7 [facility] Comment on above: Performed By: #### H EMOG, CMP3M, CRP2, LDH3, FIBGN, DDI2, APTT, FERR3 #### [facility] [address] [place] [address] LDHon 10-29-2020 LDH 676 U/L High 120-246 [facility] Comment on above: Performed By: #### H EMOG, CMP3M, CRP2, LDH3, FIBGN, DDI2, APTT, FERR3 #### [facility] [address] [place] [id number] Lactate Dehydrogenaseon 10-14 LD 676 U/L High 120 - 246 U/L [place], [place] Lithiumon 10-29-2020 [place] [Moles/Vol] 0.7 mmol/L Normal 0.6-1.2 [facility] Comment on above: Performed By: #### H EMOG, CMP3M, CRP2, LDH3, FIBGN, DDI2, APTT, FERR3 #### [facility] [address] [place] [id number] [place] Levelon 10-29-2020 [place] Lvl 0.7 mmol/L 0.6 - 1.2 mmol/L [facility] [place] Otheron 10-29-2020 Interpretation and review of laboratory results Abnormal [place], [place] Test Performed by [facility], [facility] [address] [place], [place] [id number] [place] [address] Interpretation and review of laboratory results Abnormal [place], [place] Test Performed by [facility], [facility] [address] [place], [place] [id number] [place] [address] Interpretation and review of laboratory results Abnormal [place], [place] Test Performed by [facility], [facility] [address] [place], [place] [id number] [place] [address] Procalcitoninon 10-29-2020 Procalcitonin 0.31 ng/mL Abnormal <0.10 [facility] Comment on above: Performed By: #### H EMOG, CMP3M, CRP2, LDH3, FIBGN, DDI2, APTT, FERR3 #### [facility] [address] [place] [address] Interpretation and review of laboratory results Abnormal [place], [place] Procalcitonin 0.31 ng/mL Abnormal <0.10 [place], [place] Sodium [Moles/Vol] See Below [place], [place] Comment on above: PCT <0.50 = Low risk of severe sepsis and/or septic shock. PCT >2.00 = High risk of severe sepsis and/or septic shock. Test Performed by [facility], [address] [place] [address] [place], [place] Vit D 25-OH, Totalon 020 Vit D 25-OH, Total 69 ng/mL Normal 30-100 [facility] Comment on above: Result Comment: Ther apy is based on measurement of Total 25-OHD with the following classification levels: Less than 20 ng/mL: Indicative of Vit D deficiency 20-30 ng/mL: Suggests Vit D insufficiency Optimal: Greater than or equal to 30 ng/mL Test performed by [email or web address] Immunoassay, measuring Total Vitamin D, not individual fractions. Performed By: #### H EMOG, CMP3M, CRP2, LDH3, FIBGN, DDI2, APTT, FERR3 #### [facility] [address] [place] [address] Vitamin D 25 Hydroxyon 10-29 Vit D, 25-Hydroxy 69 ng/mL 30 - 100 ng/mL [place], [place] Comment on above: Therapy is based on measurement of Total 25-OHD with the following classification levels: Less than 20 ng/mL: Indicative of Vit D deficiency 20-30 ng/mL: Suggests Vit D insufficiency Optimal: Greater than or equal to 30 ng/mL Test performed by [employer] Competitive Immuno[employer], measuring Total Vitamin D, not individual fractions. Test Performed by [facility], [address], [place], [place] [address] [place], [place] Arterial Blood Gas Respirato sarah 10-28-2020 Base Excess -5.8 mmol/L Low -3.0-3.0 [facility] Comment on above: Performed By: #### A BGE #### [facility] [address] [place] [address] CO2 [Moles/Vol] 19.3 mmol/L Low 23.0-27.0 [facility] Comment on above: Performed By: #### A BGE #### [facility] [address] [place] [address] FIO2 21 Normal [facility] Comment on above: Result Comment: Perf ormed by CLIA ID: [id number] [place], [place] Performed By: #### A BGE #### [facility] [address] [place] [address] HCO3 (Bld) [Moles/Vol] 18.3 mmol/L Low 21.0-25.0 [facility] Comment on above: Performed By: #### A BGE #### [facility] [address] [place] [address] Oxygen (Bld) [Partial pressure] 69.8 mm[Hg] Low 80.0-100.0 [facility] Comment on above: Performed By: #### A BGE #### [facility] [address] [place] [address] Oxygen saturation in Blood 93.6 % Low 95.0-100.0 [facility] Comment on above: Performed By: #### A BGE #### [place] [address] [place] [address] pCO2 31.2 mm[Hg] Low 35.0-45.0 [facility] Comment on above: Performed By: #### A BGE #### [facility] [address] [place] [address] pH (Bld) 7.376 Normal 7.350-7.45 0 [facility] Comment on above: Performed By: #### A BGE #### [facility] [address] [place] [address] Brain Natriuretic Peptideon 10-28-2020 Natriuretic peptide B (Bld) [Mass/Vol] 47 pg/mL 0 - 125 pg/mL [facility], [place] CR Chest Portableon 10-28-20 20 CR Chest Portable Patient Name: REGGIE WILSON Diagnostic Radiology ACCESSION EXAM DATE/TIME PROCEDURE ORDERING PROVIDER [id number] 10/28/2020 15:05 EST CR Chest Portable BALAJI SILVER DANIEL M CPT code 32772 Reason For Exam (CR Chest Portable) dyspnea [...] #### [facility] [address] [place] [address] ALT [Catalytic activity/Vol] 60 U/L High 0-49 [facility] Comment on above: Result Comment: The ALT test is performed by an updated assay method. Please note that the reference intervals have been changed and are now sex specific. Performed By: #### H EMOG, CMP3M, CRP2, LDH3, FIBGN, DDI2, APTT, FERR3 #### [facility] [address] [place] [address] Calcium [Mass/Vol] 8.6 mg/dL Normal 8.4-10.4 [facility] Comment on above: Performed By: #### H EMOG, CMP3M, CRP2, LDH3, FIBGN, DDI2, APTT, FERR3 #### [facility] [address] [place] [address] Glucose [Mass/Vol] 122 mg/dL High 70-100 [facility] Comment on above: Performed By: #### H EMOG, CMP3M, CRP2, LDH3, FIBGN, DDI2, APTT, FERR3 #### [facility] [address] [place] [address] Protein [Mass/Vol] 6.2 g/dL Low 6.3-8.2 [facility] Comment on above: Performed By: #### H EMOG, CMP3M, CRP2, LDH3, FIBGN, DDI2, APTT, FERR3 #### [facility] [address] [place] [address] Urea nitrogen [Mass/Vol] 35 mg/dL High 7-20 [facility] Comment on above: Performed By: #### H EMOG, CMP3M, CRP2, LDH3, FIBGN, DDI2, APTT, FERR3 #### [facility] [address] [place] [address] Anion gap [Moles/Vol] 9 Normal [facility] Comment on above: Performed By: #### H EMOG, CMP3M, CRP2, LDH3, FIBGN, DDI2, APTT, FERR3 #### [facility] [address] [place] [address] AST [Catalytic activity/Vol] 87 U/L High 15-46 [facility] Comment on above: Performed By: #### H EMOG, CMP3M, CRP2, LDH3, FIBGN, DDI2, APTT, FERR3 #### [facility] [address] [place] [address] Bilirubin [Mass/Vol] 0.6 mg/dL Normal 0.2-1.3 [facility] Comment on above: Performed By: #### H EMOG, CMP3M, CRP2, LDH3, FIBGN, DDI2, APTT, FERR3 #### [facility] [address] [place] [address] CO2 [Moles/Vol] 22 mmol/L Normal 22-30 [facility] Comment on above: Performed By: #### H EMOG, CMP3M, CRP2, LDH3, FIBGN, DDI2, APTT, FERR3 #### [facility] [address] [place] [address] Creatinine [Mass/Vol] 2.96 mg/dL High 0.52-1.25 [facility] Comment on above: Performed By: #### H EMOG, CMP3M, CRP2, LDH3, FIBGN, DDI2, APTT, FERR3 #### [facility] [address] [place] [address] GFR/1.73 sq M predicted among blacks MDRD (S/P/Bld) [Vol rate/Area] 25.9 mL/min/{1.73_m2} Abnormal >60 [facility] Comment on above: Performed By: #### H EMOG, CMP3M, CRP2, LDH3, FIBGN, DDI2, APTT, FERR3 #### [facility] [address] [place] [address] GFR/1.73 sq M predicted among non-blacks MDRD [...] [facility] [address] [place] [address] Chloride [Moles/Vol] 101 mmol/L Normal 98-107 [facility] Comment on above: Performed By: #### H EMOG, CMP3M, CRP2, LDH3, FIBGN, DDI2, APTT, FERR3 #### [facility] [address] [place] [address] Potassium [Moles/Vol] 3.1 mmol/L Low 3.5-5.1 [facility] Comment on above: Performed By: #### H EMOG, CMP3M, CRP2, LDH3, FIBGN, DDI2, APTT, FERR3 #### [facility] [address] [place] [address] Sodium [Moles/Vol] 133 mmol/L Low 135-145 [facility] Comment on above: Performed By: #### H EMOG, CMP3M, CRP2, LDH3, FIBGN, DDI2, APTT, FERR3 #### [facility] [address] [place] [address] Albumin [Mass/Vol] 3.3 g/dL Low 3.5-5.0 [facility] Comment on above: Performed By: #### H EMOG, CMP3M, CRP2, LDH3, FIBGN, DDI2, APTT, FERR3 #### [facility] [address] [place] [address] Complete Urinalysison 2019 Amorphous Crystal Few Abnormal Negative [facility] Comment on above: Result Comment: . Performed By: #### C UA2 #### [facility] [address] [place] [address] Appearance (U) Clear Normal Clear [facility] Comment on above: Result Comment: . Performed By: #### C UA2 #### [facility] [address] [place] [address] Bacteria LM.HPF (Urine sed) [#/Area] Few Abnormal Negative [facility] Comment on above: Result Comment: . Performed By: #### C UA2 #### [facility] [address] [place] [address] Bilirubin,Urine Negative Normal Negative [facility] Comment on above: Result Comment: . Performed By: #### C UA2 #### [facility] [address] [place] [address] Cast, Granular 0 - 2 Abnormal Negative [facility] Comment on above: Result Comment: . Performed By: #### C UA2 #### [facility] [address] [place] [address] Cast, Hyaline 3 - 5 Abnormal Negative [facility] Comment on above: Result Comment: . Performed By: #### C UA2 #### [facility] [address] [place] [address] Color (U) Yellow Normal Lt. Yellow [facility] Comment on above: Result Comment: . Performed By: #### C UA2 #### [facility] [address] [place] [address] Glucose Ql (U) Normal Normal Normal (<70) [facility] Comment on above: Result Comment: . Performed By: #### C UA2 #### [facility] [address] [place] [address] Ketone,Urine Negative Normal Negative [facility] Comment on above: Result Comment: . Performed By: #### C UA2 #### [facility] [address] [place] [address] Leukocytes,Urine Negative Normal Negative [facility] Comment on above: Result Comment: . Performed By: #### C UA2 #### [facility] [address] [place] [address] Mucous Threads Few Normal Negative [facility] Comment on above: Result Comment: . Performed By: #### C UA2 #### [facility] [address] [place] [address] Nitrites,Urine Negative Normal Negative [facility] Comment on above: Result Comment: . Performed By: #### C UA2 #### [facility] [address] [place] [address] Non-Squamous Epithelial < 1 Abnormal Negative [facility] Comment on above: Result Comment: . Performed By: #### C UA2 #### [facility] [address] [place] [address] Occult Blood,Urine Negative Normal Negative [facility] Comment on above: Result Comment: . Performed By: #### C UA2 #### [facility] [address] [place] [address] pH (U) 5.5 Normal 5.0-8.0 [facility] Comment on above: Result Comment: . Performed By: #### C UA2 #### [facility] [address] [place] [address] Protein (U) [Mass/Vol] 20 mg/dL Abnormal Negative [facility] Comment on above: Result Comment: . Performed By: #### C UA2 #### [facility] [address] [place] [address] RBC LM.HPF (Urine sed) [#/Area] 0 - 2 Normal 0-2 [facility] Comment on above: Result Comment: . Performed By: #### C UA2 #### [facility] [address] [place] [address] Specific [place],Urine 1.015 Normal 1.005 - 1.030 [facility] Comment on above: Result Comment: . Performed By: #### C UA2 #### [facility] [address] [place] [address] Squamous Epithelial 0 - 2 Normal 3-5 [facility] Comment on above: Result Comment: . Performed By: #### C UA2 #### [facility] [address] [place] [address] Urobilinogen,Urine Normal Normal Normal (0-1) [facility] Comment on above: Result Comment: . Performed By: #### C UA2 #### [facility] [address] [place] [address] WBC LM.HPF (Urine sed) [#/Area] 0 - 2 Normal 0-5 [facility] Comment on above: Result Comment: . Performed By: #### C UA2 #### [facility] [address] [place] [address] Comprehensive Metabolic Pane rahul 10-28-2020 Albumin [Mass/Vol] 3.3 g/dL Low 3.5 - 5 g/dL [place] ALP [Catalytic activity/Vol] 82 U/L 38 - 126 U/L [place] ALT [Catalytic activity/Vol] 60 U/L High 0 - 49 U/L [place] Comment on above: The ALT test is perf ormed by an updated assay method. Please note that the reference intervals have been changed and are now sex specific. Anion gap [Moles/Vol] 9 mmol/L [place], [place] AST [Catalytic activity/Vol] 87 U/L High 15 - 46 U/L [place] Bilirubin Ql (U) 0.6 mg/dL 0.2 - 1.3 mg/dL [place] Calcium [Mass/Vol] 8.6 mg/dL 8.4 - 10. 4 mg/dL [place] Chloride [Moles/Vol] 101 mmol/L 98 - 10 7 mmol/L [place] CO2 [Moles/Vol] 22 mmol/L 22 - 30 mmol/L [place] Creatinine [Mass/Vol] 2.96 mg/dL High 0.52 - 1.25 mg/dL [place] EGFR IF NonAfrican Lithuanian 22.3 mL/min Abnormal >60 [place] Comment on above: KDIGO guidelines pro [...] (S/P/Bld) [Vol rate/Area] 25.9 mL/min/{1.73_m2} Abnormal >60 [place] Glucose [Mass/Vol] 122 mg/dL High 70 - 100 mg/dL [place] Interpretation and review of laboratory results Abnormal [place] Potassium [Moles/Vol] 3.1 mmol/L Low 3.5 - 5.1 mmol/L [place] Protein [Mass/Vol] 6.2 g/dL Low 6.3 - 8.2 g/dL [place] Sodium [Moles/Vol] 133 mmol/L Low 135 - 145 mmol/L [place] Urea nitrogen [Mass/Vol] 35 mg/dL High 7 - 20 mg/dL [place], [place] ED Provider Noteon 0 ED Provider Note Emergency Department Encounter New [facility] ED Patient: Reggie León : 1965 Date of Evaluation: 10/28/2020 ED Supervising Physician: Otf Long, I independently examined and evaluated Reggie León. In brief, Reggie León is a 55 y.o. male that presents to the emergency department with increased shortness of breath from his half-way. Patient has a known COVID-19 infection. Patient [...] and cough. CELINA spoke with the patient's half-way who states that he was on 4 [...] EKG: Sinus rhythm rate 85, QTC 486, DE interval 184, Q wave in lead 3, [...] [employer] Otf Long DO 10/28/20 1823 [facility] ED [facility] eMERGENCY dEPARTMENT eNCOUnter Pt Name: eRggie Lenó Birthdate 1965 Date of evaluation: 10/28/2020 Provider: Andrew Silver, NICKI - PRINTS AND DRAWINGS CURATOR This patient was seen in conjunction with [...] History Narrative ? Not on file SCREENINGS @FLOW([id number])@ PHYSICAL EXAM (5+ for level 4, 8+ [...] Department physician in the absence of a data operations director. Please see their accompanying note for interpretation. RADIOLOGY (Per EmergencyPhysician): Interpretation per the Radiologist below, if available at the time of this note: Xr Chest Portable Result Date: 10/28/2020 Patient Name: REGGIE LEÓN Diagnostic Radiology ACCESSION EXAM DATE/TIME PROCEDURE ORDERING PROVIDER [id number] 10/28/2020 15:05 EST CR Chest Portable BALAJI SILVER DANIEL M CPT code 90519 Reason For Exam (CR Chest Portable) dyspnea [...] (*) eGFR 25.9 (*) EGFR IF NonAfrican Lithuanian 22.3 (*) Albumin,Serum 3.3 (*) Total Protein 6.2 (*) ALT 60 (*) AST 87 (*) All other components within normal limits Narrative: Test Performed by [facility], [address] [place] [address] CBC WITH AUTO DIFFERENTIAL - Abnormal; Notable for the following components: Hemoglobin 12.9 (*) Hematocrit 38.1 (*) Lymphocyte % 13.6 (*) Monocytes 17.8 (*) Eosinophils 0.8 (*) Absolute Lymph # 0.6 (*) All other components within normal limits Narrative: Test Performed by [facility], [facility] [address] [place] [address] POCT ARTERIAL - Abnormal; Notable for the following components: pCO2, Arterial 31.2 (*) pO2, Arterial 69.8 (*) HCO3, Arterial 18.3 (*) Base Excess, Arterial -5.8 (*) O2 Sat, Arterial 93.6 (*) TCO2, Arterial 19.3 (*) All other components within normal limits Narrative: Test Performed by [facility], [address] [place] [address] BRAIN NATRIURETIC PEPTIDE Narrative: Test Performed by [facility], [address] [place] [address] TROPONIN Narrative: Test Performed by [facility], [facility] [address] [place] [address] LACTIC ACID, PLASMA Narrative: Test Performed by [facility], [address], [place], [place] [address] URINALYSIS POCT ARTERIAL All other labs were [...] # 0.0 10*3/uL 0 - 0.2 10*3/uL [place] Absolute Neut # 3.1 10*3/uL 1.8 - 7 10*3/uL [place] Basophils/100 WBC (Bld) 0.7 % 0 - 2 % [place] Eosinophils (Bld) [#/Vol] 0.0 10*3/uL 0 - 0.5 10*3/uL [place] Eosinophils/100 WBC (Bld) 0.8 % Low 1 - 6 % [place] Erythrocyte distribution width (RBC) [Ratio] 14.0 % 11.5 - 14.5 % [place] Granulocytes/100 WBC (Bld) 67.1 % 40 - 80 % [place] Hematocrit (Bld) [Volume fraction] 38.1 % Low 40 - 52 % [place] Hemoglobin (Bld) [Mass/Vol] 12.9 g/dL Low 13 - 18 g/dL [place] Interpretation and review of laboratory results Abnormal [place] Lymphocytes (Bld) [#/Vol] 0.6 10*3/uL Low 1 - 4.3 10*3/uL [place] Lymphocytes/100 WBC (Bld) 13.6 % Low 20 - 40 % [place] MCH (RBC) [Entitic mass] 29.2 pg 26 - 34 pg [place] MCHC (RBC) [Mass/Vol] 33.9 % 32 - 36 % [place] MCV (RBC) [Entitic vol] 86.2 fL 80 - 98 fL [place] Monocytes (Bld) [#/Vol] 0.8 10*3/uL 0 - 0.8 10*3/uL [place], [place] Monocytes/100 WBC (Bld) 17.8 % High 2 - 10 % [place] Platelet mean volume (Bld) [Entitic vol] 7.4 fL 7.4 - 10.4 fL [place], [place] Platelets (Bld) [#/Vol] 223 10*3/uL 140 - 440 10*3/uL [place] RBC (Bld) [#/Vol] 4.42 10*6/uL 4.4 - 5.9 10*6/uL [place] WBC (Bld) [#/Vol] 4.6 10*3/uL 3.6 - 10.7 10*3/uL [place] Test Performed by [facility], [address] [place] [address] [place] Hemogram w/ Autodiffon 10-28 Abs Baso Cnt 0.0 10*3/uL Normal 0.0-0.2 [facility] Comment on above: Performed By: #### H EMOG, CMP3M, CRP2, LDH3, FIBGN, DDI2, APTT, FERR3 #### [facility] [address] [place] [address] Abs Neutrophile Cnt 3.1 10*3/uL Normal 1.8-7.0 [facility] Comment on above: Performed By: #### H EMOG, CMP3M, CRP2, LDH3, FIBGN, DDI2, APTT, FERR3 #### [facility] [address] [place] [address] Basophils/100 WBC (Bld) 0.7 % Normal 0.0-2.0 [facility] Comment on above: Performed By: #### H EMOG, CMP3M, CRP2, LDH3, FIBGN, DDI2, APTT, FERR3 #### [facility] [address] [place] [address] Eosinophils (Bld) [#/Vol] 0.0 10*3/uL Normal 0.0-0.5 [facility] Comment on above: Performed By: #### H EMOG, CMP3M, CRP2, LDH3, FIBGN, DDI2, APTT, FERR3 #### [facility] [address] [place] [address] Eosinophils/100 WBC (Bld) 0.8 % Low 1.0-6.0 [facility] Comment on above: Performed By: #### H EMOG, CMP3M, CRP2, LDH3, FIBGN, DDI2, APTT, FERR3 #### [facility] [address] [place] [address] Erythrocyte distribution width (RBC) [Ratio] 14.0 % Normal 11.5-14.5 [facility] Comment on above: Performed By: #### H EMOG, CMP3M, CRP2, LDH3, FIBGN, DDI2, APTT, FERR3 #### [facility] [address] [place] [address] Granulocytes/100 WBC (Bld) 67.1 % Normal 40.0-80.0 [facility] Comment on above: Performed By: #### H EMOG, CMP3M, CRP2, LDH3, FIBGN, DDI2, APTT, FERR3 #### [facility] [address] [place] [address] Hematocrit (Bld) [Volume fraction] 38.1 % Low 40.0-52.0 [facility] Comment on above: Performed By: #### H EMOG, CMP3M, CRP2, LDH3, FIBGN, DDI2, APTT, FERR3 #### [facility] [address] [place] [address] Hemoglobin (Bld) [Mass/Vol] 12.9 g/dL Low 13.0-18.0 [facility] Comment on above: Performed By: #### H EMOG, CMP3M, CRP2, LDH3, FIBGN, DDI2, APTT, FERR3 #### [facility] [address] [place] [address] Lymphocytes (Bld) [#/Vol] 0.6 10*3/uL Low 1.0-4.3 [facility] Comment on above: Performed By: #### H EMOG, CMP3M, CRP2, LDH3, FIBGN, DDI2, APTT, FERR3 #### [facility] [address] [place] [address] Lymphocytes/100 WBC (Bld) 13.6 % Low 20.0-40.0 [facility] Comment on above: Performed By: #### H EMOG, CMP3M, CRP2, LDH3, FIBGN, DDI2, APTT, FERR3 #### [facility] [address] [place] [address] MCH (RBC) [Entitic mass] 29.2 pg Normal 26.0-34.0 [facility] Comment on above: Performed By: #### H EMOG, CMP3M, CRP2, LDH3, FIBGN, DDI2, APTT, FERR3 #### [facility] [address] [place] [address] MCHC (RBC) [Mass/Vol] 33.9 % Normal 32.0-36.0 [facility] Comment on above: Performed By: #### H EMOG, CMP3M, CRP2, LDH3, FIBGN, DDI2, APTT, FERR3 #### [facility] [address] [place] [address] MCV (RBC) [Entitic vol] 86.2 fL Normal 80.0-98.0 [facility] Comment on above: Performed By: #### H EMOG, CMP3M, CRP2, LDH3, FIBGN, DDI2, APTT, FERR3 #### [facility] [address] [place] [address] Monocytes (Bld) [#/Vol] 0.8 10*3/uL Normal 0.0-0.8 [facility] Comment on above: Performed By: #### H EMOG, CMP3M, CRP2, LDH3, FIBGN, DDI2, APTT, FERR3 #### [facility] [address] [place] [address] Monocytes/100 WBC (Bld) 17.8 % High 2.0-10.0 [facility] Comment on above: Performed By: #### H EMOG, CMP3M, CRP2, LDH3, FIBGN, DDI2, APTT, FERR3 #### [facility] [address] [place] [address] Platelet mean volume (Bld) [Entitic vol] 7.4 fL Normal 7.4-10.4 [facility] Comment on above: Performed By: #### H EMOG, CMP3M, CRP2, LDH3, FIBGN, DDI2, APTT, FERR3 #### [facility] [address] [place] [address] Platelets (Bld) [#/Vol] 223 10*3/uL Normal 140-440 [facility] Comment on above: Performed By: #### H EMOG, CMP3M, CRP2, LDH3, FIBGN, DDI2, APTT, FERR3 #### [facility] [address] [place] [address] RBC (Bld) [#/Vol] 4.42 10*6/uL Normal 4.40-5.90 [facility] Comment on above: Performed By: #### H EMOG, CMP3M, CRP2, LDH3, FIBGN, DDI2, APTT, FERR3 #### [facility] [address] [place] [address] WBC (Bld) [#/Vol] 4.6 10*3/uL Normal 3.6-10.7 [facility] Comment on above: Performed By: #### H EMOG, CMP3M, CRP2, LDH3, FIBGN, DDI2, APTT, FERR3 #### [facility] [address] [place] [address] Lactic Acidon 10-28-2020 Lactate [Moles/Vol] 1.6 mmol/L Normal 0.7-2.0 [facility] Comment on above: Performed By: #### H EMOG, CMP3M, CRP2, LDH3, FIBGN, DDI2, APTT, FERR3 #### [facility] [address] [place] [address] Lactic Acid, Plasmaon 2019 Lactate [Moles/Vol] 1.6 mmol/L 0.7 - 2 mmol/L [facility] NT pro BNPon 10-28-2020 Natriuretic peptide B (Bld) [Mass/Vol] 47 pg/mL Normal 0-125 [facility] Comment on above: Performed By: #### H EMOG, CMP3M, CRP2, LDH3, FIBGN, DDI2, APTT, FERR3 #### [facility] [address] [place] [address] Otheron 10-28-2020 Test Performed by [facility], [address], [place], [place] [address] [facility] Test Performed by [facility], [address] [place], [place] [address] [facility] POCT Arterialon 10-28-2020 Base Excess, Arterial -5.8 mmol/L Low -3 - 3 mmol/L [place] HCO3, Arterial 18.3 mmol/L Low 21 - 25 mmol/L [place] Interpretation and review of laboratory results Abnormal [place] Oxygen saturation in Blood 93.6 % Low 95 - 100 % [place] pCO2, Arterial 31.2 mm[Hg] Low 35 - 45 mm[Hg] [place] pH, Arterial 7.376 [place] pO2, Arterial 69.8 mm[Hg] Low 80 - 100 mm[Hg] [place] Sodium [Moles/Vol] 21 mmol/L [place] Comment on above: Performed by CLIA ID : [id number] [place], [place] TCO2, Arterial 19.3 mmol/L Low 23 - 27 mmol/L [place] Test Performed by [facility], [address], [place], [place] [id number] [place] [address] Procalcitoninon 10-28-2020 Interpretation See Below Normal [facility] Comment on above: Result Comment: PCT <0.50 = Low risk of severe sepsis and/or septic shock. PCT >2.00 = High risk of severe sepsis and/or septic shock. Performed By: #### H EMOG, CMP3M, CRP2, LDH3, FIBGN, DDI2, APTT, FERR3 #### [facility] [address] [place] [address] Respiratory Panel, Molecular , with COVID-19 (Restricted: [...] management decisions. This assay was developed by [employer] and distributed under an Emergency Use Authorization (EUA) granted by the FDA for the qualitative detection of SARS-CoV-2 nucleic acid. Provider and patient fact sheets can be found at https://www.fda.gov/media/ 441576/download and https://www.fda.gov/media/ 858859/download. [place] Test Performed by [facility], [address] [place] [address] [place] Troponin Ion 10-28-2020 Troponin I.cardiac [Mass/Vol] ng/mL Normal 0.000-0.03 4 [facility] Comment on above: Result Comment: . Performed By: #### H EMOG, CMP3M, CRP2, LDH3, FIBGN, DDI2, APTT, FERR3 #### [facility] [address] [place] [address] Troponin x1on 10-28-2020 Troponin I.cardiac [Mass/Vol] ng/mL 0 - 0.034 ng/mL [place] Comment on above: . Urinalysison 10-28-2020 AMORPHOUS CRYSTAL Few Abnormal Negative /[HPF] [place] Comment on above: . Appearance (U) Clear Clear NA [place] Comment on above: . Bacteria, UA Few Abnormal Negative /[HPF] [place] Comment on above: . Bilirubin Urine Negative Negative mg/dL [place] Comment on above: . Color (U) Yellow Lt. Yellow NA [place] Comment on above: . Glucose, Ur Normal Normal (<70) mg/dL [place] Comment on above: . Granular Casts, UA 0-2 Abnormal Negative /[LPF] [place] Comment on above: . Hyaline Casts, UA 3-5 Abnormal Negative /[LPF] [place], [place] Comment on above: . Interpretation and review of laboratory results Abnormal [place] Ketones Ql (U) Negative Negative mg/dL [place] Comment on [place]: . LEUKOCYTES, UA Negative Negative Mary/uL [place] Comment on above: . Mucous Threads Few Negative /[LPF] [place] Comment on above: . Nitrite, Urine Negative Negative [place] Comment on above: . Non-Squamous Epithelial <1 Abnormal Nega tive /[HPF] [place] Comment on above: . Occult Blood,Urine Negative Negative mg/dL [place] Comment [place]: . pH (U) 5.5 [pH] [place] Comment on above: . Protein (U) [Mass/Vol] 20 mg/dL Abnormal Negative Me [place] Comment on above: . RBC (U) [#/Vol] 0-2 0 - 2 /[HPF] [place] Comment on above: . Specific [place], Urine 1.015 M [place] Comment on above: . Squam Epithel, UA 0-2 3 - 5 /[HPF] [place] Comment on above: . Urobilinogen, Urine Normal Normal (0-1) mg/dL [place] Comment on above: . WBC, UA 0-2 0 - 5 /[HPF] [place] Comment on above: . Test Performed by [facility], [address], [place], [place] [address] [place] XR CHEST PORTABLEon 10-28-20 [facility], [facility] - 10/28/2020 3:21 PM EST Patient Name: REGGIE LEÓN Diagnostic Radiology ACCESSION EXAM DATE/TIME PROCEDURE ORDERING PROVIDER [id number] 10/28/2020 15:05 EST CR Chest Portable BALAJI SILVER ANDREW Cirilo CPT code 64114 Reason For Exam (CR Chest Portable) dyspnea [...] JOHN Transcribed Date and Time: 10/28/2020 3:21 [place] Patient Name: REGGIE WILSON Diagnostic Radiology ACCESSION EXAM DATE/TIME PROCEDURE ORDERING PROVIDER [id number] 10/28/2020 15:05 EST CR Chest Portable BALAJI SILVER DANIEL M CPT code 78354 Reason For Exam (CR Chest Portable) dyspnea [...] JOHN Transcribed Date and Time: 10/28/2020 3:21 [facility], [facility] with eGFRon 05-05-2020 Age - Reported 54 years Normal [facility] Comment on above: Performed By: #### 2 36727 #### [facility],[address] [place] [address] 61752 Anion gap [Moles/Vol] 11 mmol/L Normal 10 - 20 [facility] Comment on above: Performed By: #### 2 86921 #### [facility],[address] [place] [address] 32750 Calcium [Mass/Vol] 9.5 mg/dL Normal 8.6 - 10.2 [facility] Comment on above: Performed By: #### 2 53875 #### [facility],[address] [place] [address] 19619 CO2 [Moles/Vol] 24.7 mmol/L Normal 21.0 - 31.0 [facility] Comment on above: Performed By: #### 2 03923 #### [facility],[address] [place] [address] 68240 GFR/1.73 sq M predicted among non-blacks MDRD (S/P/Bld) [Vol rate/Area] 27 ML/MINUTE Low 60 - 999 [facility] Comment on above: Performed By: #### 2 79271 #### [facility],[address] [place] [address] 23378 GFR/1.73 sq M predicted among non-blacks MDRD (S/P/Bld) [Vol rate/Area] 33 ML/MINUTE Low 60 - 999 [facility] Comment on above: Result Comment: ACCO RDING TO THE NATIONAL KIDNEY DISEASE EDUCATION PROGRAM(NKDE), A NORMAL eGFR IS A VALUE GREATER THAN OR EQUAL TO 60 ML/MIN/1.73 SQ METERS. CHRONIC KIDNEY DISEASE: <60mL/MIN/1.73 SQ METERS KIDNEY FAILURE: <15mL/MIN/1.73 SQ METERS THIS TEST SHOULD ONLY BE USED FOR PATIENTS 18 YEARS OF AGE AND OLDER. Performed By: #### 2 44557 #### [address] [address] GFR/1.73 sq M predicted among non-blacks MDRD (S/P/Bld) [Vol rate/Area] Normal [facility] Comment on above: Result Comment: BASI C METABOLIC PANEL Performed By: #### 2 53735 #### [address] [address] Glucose [Mass/Vol] 113 mg/dL High 74 - 106 [facility] Comment on above: Performed By: #### 2 13530 #### [address] [address] Potassium [Moles/Vol] 4.1 mmol/L Normal 3.5 - 5.1 [facility] Comment on above: Performed By: #### 2 30635 #### [address] [address] Urea nitrogen [Mass/Vol] 24 mg/dL High 6 - 20 [facility] Comment on above: Performed By: #### 2 90381 #### [address] [address] CBC + DIFFon 05-05-2020 Basophils (Bld) [#/Vol] 0.10 x10EE3/UL Normal 0. 00 - 0.10 [facility] Comment on above: Performed By: #### 2 86954 #### [address] [address] Basophils/100 WBC (Bld) 0.9 % Normal 0.0 - 2.0 [facility] Comment on above: Performed By: #### 2 39120 #### [facility],[address] [place] [address] CBC + DIFF Normal [facility] Comment on above: Result Comment: CBC- COMPLETE BLOOD COUNT Performed By: #### 2 46486 #### [facility],[address] [place] [address] Eosinophils (Bld) [#/Vol] 0.40 x10EE3/UL Normal 0.00 - 0.50 [facility] Comment on above: Performed By: #### 2 75589 #### [place] [address] Eosinophils/100 WBC (Bld) 5.4 % Normal 0.0 - 7.0 [facility] Comment on above: Performed By: #### 2 21100 #### [place] [address] Erythrocyte distribution width (RBC) [Ratio] 12.7 % Normal 12.0 - 15.6 [facility] Comment on above: Performed By: #### 2 00628 #### [place] [address] Hematocrit (Bld) [Volume fraction] 37.0 % Low 40.0 - 52.0 [facility] Comment on above: Performed By: #### 2 12781 #### [facility],[address] [place], [place] [address] Hemoglobin (Bld) [Mass/Vol] 13.0 g/dL Normal 13.0 - 17.5 [facility] Comment on above: Performed By: #### 2 45467 #### [place] [id number] Lymphocytes (Bld) [#/Vol] 1.50 x10EE3/UL Normal 0.80 - 2.80 [facility] Comment on above: Performed By: #### 2 69833 #### [facility] [place] [address] 04350 Lymphocytes/100 WBC (Bld) 18.7 % Low 20.0 - 45.0 [facility] Comment on above: Performed By: #### 2 21813 #### [facility],[address] [place] [address] 86313 MANUAL DIFF N/A Normal [facility] Comment on above: Performed By: #### 2 58879 #### [facility],[address] [place] [address] 77032 MCH (RBC) [Entitic mass] 31 pg Normal 27 - 33 [facility] Comment on above: Performed By: #### 2 87304 #### [facility],[address] [place] [address] 32669 MCHC (RBC) [Mass/Vol] 35 X10 3 Normal 32 - 36 [facility] Comment on above: Performed By: #### 2 94702 #### [facility],[address] [place] [address] 06236 MCV (RBC) [Entitic vol] 87 fL Normal 81 - 98 [facility] Comment on above: Performed By: #### 2 08591 #### [facility],[address] [place] [address] 15754 Monocytes (Bld) [#/Vol] 1.20 x10EE3/UL High 0. 20 - 1.00 [facility] Comment on above: Performed By: #### 2 98389 #### [facility],[address] [place] [address] 19557 MONOS % 14.8 % High 0.0 - 10.0 [facility] Comment on above: Performed By: #### 2 73770 #### [facility],[address] [place] [address] 46297 Morphology Cris[place] (Bld) [Interp] N/A Normal [facility] Comment on above: Performed By: #### 2 86054 #### [facility],[address] [place] [address] 95947 Neutrophils (Bld) [#/Vol] 4.80 x10EE3/UL Normal 1.50 - 7.10 [facility] Comment on above: Performed By: #### 2 33111 #### [facility],[address] [place] [address] 95497 Neutrophils/100 WBC (Bld) 60.2 % Normal 46.0 - 76.0 [facility] Comment on above: Performed By: #### 2 35454 #### [facility],[address] [place] [address] 39052 Platelet mean volume (Bld) [Entitic vol] 7.2 fL Normal 6.4 - 10.5 [facility] Comment on above: Result Comment: AUTO MATED DIFFERENTIAL Performed By: #### 2 52748 #### [address] [address] Platelets (Bld) [#/Vol] 286 x10EE3/UL Normal 150 - 450 [facility] Comment on above: Performed By: #### 2 90418 #### [facility],[address] [place] [address] 74106 RBC (Bld) [#/Vol] 4.24 x 10EE6/UL Low 4.50 - 6.00 [facility] Comment on above: Performed By: #### 2 98089 #### [facility],[address] [place] [address] 26888 WBC (Bld) [#/Vol] 8.0 x 10EE3/UL Normal 4.5 - 10.8 [facility] Comment on above: Performed By: #### 2 83457 #### [address] [address] CULTURE URINEon 05-05-2020 CULTURE URINE CULTURE URINE _URINE CULTURE_ M I C R O B I O L O G Y R E P O R T FINAL ------- Antimicrobial Susceptibility and Organism Identification Report -------- Specimen Number : [id number] Requested : 05/05/20 Specimen Source : URINE Collected : 05/05/20 03:00 Arredondo of Isolation : MEME HUANG Received : 05/05/20 03:00 Requesting Physician : FLORECITA -- Patient/Specimen Tests and Comments Specimen Comments -------- -------- FINAL REPORT: NO GROWTH AT 48 HOURS -- Tech : Source : URINE ID # : [id number] FINAL Report Date : / / : Collected : 05/05/20 03:00 05/07/20.1244.KLS. 05/06/20.0705.JLN. 05/07/20.1245.KLS.COMPLETE Normal [facility] Comment on above: Performed By: #### 2 83721 #### [facility],[address] [place] [address] 95397 LITHIUMon 05-05-2020 [place] [Moles/Vol] 0.9 mmol/L Normal 0.6 - 1.2 [facility] Comment on above: Performed By: #### 2 58136 #### [facility],[address] [place] [address] 02370 RENAL FUNCTION PANELon 05-05 Albumin [Mass/Vol] 3.3 g/dL Low 3.4 - 4.8 [facility] Comment on above: Performed By: #### 2 75544 #### [facility],[address] [place] [address] 79962 B/C RATIO 10 ratio Normal 0 - 30 [facility] Comment on above: Performed By: #### 2 17804 #### [facility],[address] [place] [address] 10962 Chloride [Moles/Vol] 107 mmol/L Normal 98 - 107 [facility] Comment on above: Performed By: #### 2 88699 #### [facility],[address] [place] [address] 73160 Creatinine [Mass/Vol] 2.5 mg/dL High 0.7 - 1.3 [facility] Comment on above: Performed By: #### 2 26344 #### [facility],[address] [place] [address] 21210 Phosphate [Mass/Vol] 4.9 mg/dL Normal 2.7 - 4.9 [facility] Comment on above: Performed By: #### 2 42267 #### [facility],[address] [place] [address] 51354 RENAL FUNCTION PANEL Normal [facility] Comment on above: Result Comment: JESSICA L FUNCTION PANEL Performed By: #### 2 81675 #### [facility],[address] [place] [address] 43836 Sodium [Moles/Vol] 139 mmol/L Normal 136 - 145 [facility] Comment on above: Performed By: #### 2 08311 #### [facility],[address] [place] [address] 70556 URINALYSISon 05-05-2020 Bilirubin [Mass/Vol] Negative Normal NORMAL: NEGATIVE [facility] Comment on above: Performed By: #### 2 24313 #### [facility],[address] [place] [address] 15953 Blood Negative Normal NORMAL: NEGATIVE [facility] Comment on above: Performed By: #### 2 03315 #### [facility],[address] [place] [address] 96668 Clarity (U) clear Normal NORMAL: CLEAR [facility] Comment on above: Performed By: #### 2 79172 #### [facility],[address] [place] [address] 22193 Color (U) yellow Normal NORMAL: YELLOW [facility] Comment on above: Performed By: #### 2 88016 #### [facility],[address] [place] [address] 30744 Glucose [Mass/Vol] NORM Normal NORMAL: NORMAL [facility] Comment on above: Performed By: #### 2 31557 #### [facility],[address] [place] [address] 55496 Ketone Negative Normal NORMAL: NEGATIVE [facility] Comment on above: Performed By: #### 2 54976 #### [facility],[address] [place] [address] 64780 Microscopic NOT INDICATED Normal [facility] Comment on above: Performed By: #### 2 37967 #### [facility],[address] [place] [address] 68958 Nitrite Ql (U) Negative Normal NORMAL: NEGATIVE [facility] Comment on above: Performed By: #### 2 52726 #### [facility],[address] [place], [place] [address] pH (Bld) 6 Normal NORMAL: 5.0-8.0 [facility] Comment on above: Performed By: #### 2 24918 #### [facility],[address] [place] [address] Protein (U) [Mass/Vol] Negative Normal JENN L: NEGATIVE [facility] Comment on above: Performed By: #### 2 26677 #### [facility],[address] [place] [address] Sp [place] 1.020 Normal NORMAL: 1.010-1.03 0 [facility] Comment on above: Performed By: #### 2 23813 #### [facility],[address] [place] [address] Specimen type Nom (Spec) UNSPECIFIED Normal [facility] Comment on above: Performed By: #### 2 57566 #### [facility],[address] [place] [address] Urobilinog NORM Normal NORMAL: NORMAL [facility] Comment on above: Performed By: #### 2 48189 #### [facility],[address] [place] [address] 79614 WBC (Bld) [#/Vol] Negative Normal NORMAL: NEGATIVE [facility] Comment on above: Performed By: #### 2 64208 #### [facility],[address] [place], [place] [address] CBC + DIFFon 04-08-2020 Basophils (Bld) [#/Vol] 0.10 x10EE3/UL Normal 0. 00 - 0.10 [facility] Comment on above: Performed By: #### 2 54291 ####[facility],[address] [place], [place] [address] Basophils/100 WBC (Bld) 1.2 % Normal 0.0 - 2.0 [facility] Comment on above: Performed By: #### 2 86802 ####[facility],[address] [place] [address] CBC + DIFF Normal [facility] Comment on above: Result Comment: CBC- COMPLETE BLOOD COUNT Performed By: #### 2 50747 ####[place] [address] Eosinophils (Bld) [#/Vol] 0.40 x10EE3/UL Normal 0.00 - 0.50 [facility] Comment on above: Performed By: #### 2 96390 ####[facility],[address] [place] [address] Eosinophils/100 WBC (Bld) 4.3 % Normal 0.0 - 7.0 [facility] Comment on above: Performed By: #### 2 29849 ####[place] [address] Erythrocyte distribution width (RBC) [Ratio] 12.9 % Normal 12.0 - 15.6 [facility] Comment on above: Performed By: #### 2 72138 ####[facility],[address] [place] [address] Hematocrit (Bld) [Volume fraction] 38.7 % Low 40.0 - 52.0 [facility] Comment on above: Performed By: #### 2 33829 ####[place] [address] Hemoglobin (Bld) [Mass/Vol] 13.4 g/dL Normal 13.0 - 17.5 [facility] Comment on above: Performed By: #### 2 87733 ####[facility],[address] [place] [address] Lymphocytes (Bld) [#/Vol] 1.80 x10EE3/UL Normal 0.80 - 2.80 [facility] Comment on above: Performed By: #### 2 08206 ####[facility],[address] [place] [address] 46564 Lymphocytes/100 WBC (Bld) 21.9 % Normal 20.0 - 45.0 [facility] Comment on above: Performed By: #### 2 00436 ####[facility],[address] [place] [address] 31777 MANUAL DIFF N/A Normal [facility] Comment on above: Performed By: #### 2 94621 ####[facility],[address] [place] [address] 73887 MCH (RBC) [Entitic mass] 31 pg Normal 27 - 33 [facility] Comment on above: Performed By: #### 2 45305 ####[facility],[address] [place] [address] 25961 MCHC (RBC) [Mass/Vol] 35 X10 3 Normal 32 - 36 [facility] Comment on above: Performed By: #### 2 80577 ####[facility],[address] [place] [address] 62014 MCV (RBC) [Entitic vol] 88 fL Normal 81 - 98 [facility] Comment on above: Performed By: #### 2 54586 ####[facility],[address] [place] [address] 22230 Monocytes (Bld) [#/Vol] 1.20 x10EE3/UL High 0. 20 - 1.00 [facility] Comment on above: Performed By: #### 2 83754 ####[facility],[address] [place] [address] 99995 MONOS % 14.1 % High 0.0 - 10.0 [facility] Comment on above: Performed By: #### 2 10783 ####[facility],[address] [place] [address] 10800 Morphology [place] (Bld) [Interp] N/A Normal [facility] Comment on above: Performed By: #### 2 07085 ####[facility],[address] [place] [address] 34407 Neutrophils (Bld) [#/Vol] 4.90 x10EE3/UL Normal 1.50 - 7.10 [facility] Comment on above: Performed By: #### 2 36131 ####[facility],[address] [place] [address] 32389 Neutrophils/100 WBC (Bld) 58.5 % Normal 46.0 - 76.0 [facility] Comment on above: Performed By: #### 2 09267 ####[facility],[address] [place] [address] 16282 Platelet mean volume (Bld) [Entitic vol] 7.4 fL Normal 6.4 - 10.5 [facility] Comment on above: Result Comment: AUTO MATED DIFFERENTIAL Performed By: #### 2 75184 ####[address] [address] Platelets (Bld) [#/Vol] 268 x10EE3/UL Normal 150 - 450 [facility] Comment on above: Performed By: #### 2 31542 ####[facility],[address] [place] [address] 00233 RBC (Bld) [#/Vol] 4.41 x 10EE6/UL Low 4.50 - 6.00 [facility] Comment on above: Performed By: #### 2 01766 ####[facility],[address] [place] [address] 57061 WBC (Bld) [#/Vol] 8.3 x 10EE3/UL Normal 4.5 - 10.8 [facility] Comment on above: Performed By: #### 2 42204 ####[address] [address] CULTURE URINEon 04-08-2020 CULTURE URINE CULTURE URINE _URINE CULTURE_ M I C R O B I O L O G Y R E P O R T FINAL ------- Antimicrobial Susceptibility and Organism Identification Report -------- Specimen Number : [id number] Requested : 04/08/20 Specimen Source : CLEAN CATCH URINE Collected : 04/08/20 06:28 [place] of [place]olation : MEME SAL Received : 04/08/20 06:28 Requesting Physician : FLORECITA -- Patient/Specimen Tests and Comments Specimen Comments -------- -------- FINAL REPORT: NO GROWTH AT 48 HOURS -- Tech : Source : CLEAN CATCH URINE ID # : [id number] FINAL Report Date : / / : Collected : 04/08/20 06:28 04/10/20.1059.BKO. 04/09/20.1214.KLS. 04/10/20.1059.BKO.COMPLETE Normal [facility] Comment on above: Performed By: #### 2 08694 #### [facility],[address] [place] [address] 28305 HEPATIC FUNCTION PANELon Albumin [Mass/Vol] 3.4 g/dL Normal 3.4 - 4.8 [facility] Comment on above: Performed By: #### 2 83696 ####[facility],[address] [place] [address] 34135 Performed By: #### 2 91179 ####[facility],[address] [place] [address] 62654 ALK PHOS 65 U/L Normal 38 - 126 [facility] Comment on above: Performed By: #### 2 63326 ####[facility],[address] [place] [address] 34541 ALT/SGPT 16 U/L Normal 10 - 40 [facility] Comment on above: Performed By: #### 2 27498 ####[facility],[address] [place] [address] 90084 AST/SGOT 10 U/L Low 13 - 39 [facility] Comment on above: Performed By: #### 2 56158 ####[facility],[address] [place] [address] 04976 Bilirubin [Mass/Vol] 0.4 mg/dL Normal 0.0 - 1.5 [facility] Comment on above: Performed By: #### 2 61683 ####[facility],[address] [place] [address] 53343 Bilirubin.direct [Mass/Vol] 0.1 mg/dL Normal 0.0 - 0.1 [facility] Comment on above: Performed By: #### 2 81234 ####[facility],[address] [place] [address] 40186 HEPATIC FUNCTION PANEL Normal [facility] Comment on above: Result Comment: HEPA TIC FUNCTION PROFILE Performed By: #### 2 56066 ####[facility],[address] [place] [address] 54551 Protein [Mass/Vol] 5.4 g/dL Low 6.4 - 8.3 [facility] Comment on above: Performed By: #### 2 01885 ####[facility],[address] [place] [address] 10566 LITHIUMon 04-08-2020 [place] [Moles/Vol] 0.7 mmol/L Normal 0.6 - 1.2 [facility] Comment on above: Performed By: #### 2 47155 ####[facility],[address] [place] [address] 01866 RENAL FUNCTION PANELon 04-08 B/C RATIO 11 ratio Normal 0 - 30 [facility] Comment on above: Performed By: #### 2 87853 ####[facility],[address] [place] [address] 36815 Calcium [Mass/Vol] 9.5 mg/dL Normal 8.6 - 10.2 [facility] Comment on above: Performed By: #### 2 90359 ####[facility],[address] [place] [address] 44722 Chloride [Moles/Vol] 105 mmol/L Normal 98 - 107 [facility] Comment on above: Performed By: #### 2 88033 ####[facility],[address] [place] [address] 93027 CO2 [Moles/Vol] 25.4 mmol/L Normal 21.0 - 31.0 [facility] Comment on above: Performed By: #### 2 48997 ####[facility],[address] [place] [address] 42761 Creatinine [Mass/Vol] 2.1 mg/dL High 0.7 - 1.3 [facility] Comment on above: Performed By: #### 2 84549 ####[facility],[address] [place] [address] 54846 Glucose [Mass/Vol] 105 mg/dL Normal 74 - 106 [facility] Comment on above: Performed By: #### 2 69945 ####[facility],[address] [place] [address] 52970 Phosphate [Mass/Vol] 5.2 mg/dL High 2.7 - 4.9 [facility] Comment on above: Performed By: #### 2 27140 ####[facility],[address] [place] [address] 56007 Potassium [Moles/Vol] 3.8 mmol/L Normal 3.5 - 5.1 [facility] Comment on above: Performed By: #### 2 59147 ####[facility],[address] [place] [address] 22217 RENAL FUNCTION PANEL Normal [facility] Comment on above: Result Comment: JESSICA L FUNCTION PANEL Performed By: #### 2 43353 ####[facility],[address] [place] [address] 19741 Sodium [Moles/Vol] 139 mmol/L Normal 136 - 145 [facility] Comment on above: Performed By: #### 2 14297 ####[facility],[address] [place] [address] 01966 Urea nitrogen [Mass/Vol] 23 mg/dL High 6 - 20 [facility] Comment on above: Performed By: #### 2 01138 ####[facility],[address] [place] [address] 73402 URINALYSISon 04-08-2020 Bilirubin [Mass/Vol] Negative Normal NORMAL: NEGATIVE [facility] Comment on above: Performed By: #### 2 76587 #### [facility],[address] [place] [address] 81959 Blood Negative Normal NORMAL: NEGATIVE [facility] Comment on above: Performed By: #### 2 13693 #### [facility],[address] [place] [address] 95583 Clarity (U) clear Normal NORMAL: CLEAR [facility] Comment on above: Performed By: #### 2 89148 #### [facility],[address] [place], [place] [address] Color (U) p.yel Normal NORMAL: YELLOW [facility] Comment on above: Performed By: #### 2 08806 #### [facility],[address] [place], [place] [address] Glucose [Mass/Vol] NORM Normal NORMAL: NORMAL [facility] Comment on above: Performed By: #### 2 39608 #### [facility],[address] [place] [address] 01869 Ketone Negative Normal NORMAL: NEGATIVE [facility] Comment on above: Performed By: #### 2 23458 #### [facility],[address] [place] [address] 14205 Microscopic NOT INDICATED Normal [facility] Comment on above: Performed By: #### 2 83140 #### [facility],[address] [place] [address] 42925 Nitrite Ql (U) Negative Normal NORMAL: NEGATIVE [facility] Comment on above: Performed By: #### 2 76074 #### [facility],[address] [place] [address] 67690 pH (Bld) 6 Normal NORMAL: 5.0-8.0 [facility] Comment on above: Performed By: #### 2 88018 #### [facility],[address] [place] [address] 83230 Protein (U) [Mass/Vol] Negative Normal JENN L: NEGATIVE [facility] Comment on above: Performed By: #### 2 74100 #### [facility],[address] [place] [address] 80436 Sp [place] 1.020 Normal NORMAL: 1.010-1.03 0 [facility] Comment on above: Performed By: #### 2 33494 #### [facility],[address] [place] [address] Specimen type Nom (Spec) Clean catch Normal [facility] Comment on above: Performed By: #### 2 86879 #### [facility],[address] [place] [address] Urobilinog NORM Normal NORMAL: NORMAL [facility] Comment on above: Performed By: #### 2 03250 #### [facility],[address] [place], [place] [address] WBC (Bld) [#/Vol] Negative Normal NORMAL: NEGATIVE [facility] Comment on above: Performed By: #### 2 60868 #### [facility],[address] [place], [place] [address] URINE CREATININE AND PROTEIN RATIOon 04-08-2020 CREATININE UR 146.3 mg/dl Normal [facility] Comment on above: Performed By: #### 2 09547 ####[facility],[address] [place] [address] 01717 PC RATIO 0.06 mg/dL Normal 0.00 - 10.00 [facility] Comment on above: Performed By: #### 2 34711 ####[facility] [facility],[address] [place] [address] 66545 Protein (U) [Mass/Vol] 9.00 mg/dL Normal 0.00 - 10.00 [facility] Comment on above: Performed By: #### 2 12959 ####[facility],[address] [place], [place] [id number] HGB A1C [CCL]on 03-18-2020 HbA1c (Bld) [Mass fraction] 117 mg/dL Normal [facility] Comment on above: Result Comment: eAG: (Estimated average glucose) is a calculated value from HgbA1c and is pharmaceutical service representative of the average blood glucose level in the last 2-3 month period. [facility] [address] [place] [address] Dre Gilliland III, M.D. [id number] Performed By: #### 2 58721 ####[place] [address] HbA1c (Bld) [Mass fraction] 5.7 % High 4.3-5.6 [facility] Comment on above: Result Comment: Amer [place] Diabetes Association guidelines indicate that patients with HgbA1c in the range 5.7-6.4% are at increased risk for development of diabetes, and intervention by lifestyle modification may be beneficial. HgbA1c greater or equal to 6.5% is considered diagnostic of diabetes. Performed By: #### 2 68846 ####[place] [id number] Hemoglobin A1con 03-18-2020 HbA1c (Bld) [Mass fraction] 5.7 % High 4.3-5.6 [facility] Comment on above: Performed By: #### H BA1C #### [facility] [address] [place] [address] HbA1c (Bld) [Mass fraction] 117 mg/dL Normal [facility] Comment on above: Performed By: #### H BA1C #### [facility] [address] [place] [address] LIPID PROFILEon 03-17-2020 Cholesterol [Mass/Vol] 133 mg/dL Normal 0 - 200 [facility] Comment on above: Performed By: #### 2 81850 ####[address] [address] Cholesterol in HDL [Mass/Vol] 29 mg/dL Low 40 - 60 [facility] Comment on above: Performed By: #### 2 91837 ####[facility],[address] [place] [address] 15109 Cholesterol in LDL [Mass/Vol] 59 mg/dL Normal 0 - 129 [facility] Comment on above: Performed By: #### 2 57578 ####[facility],[address] [place] [address] 36213 Cholesterol.total/Choles terol in HDL [Mass ratio] 4.6 {ratio} Normal 0.0 - 5.0 [facility] Comment on above: Performed By: #### 2 40373 ####[facility],[address] [place] [address] 34419 Lipid 1996 panel Normal [facility] Comment on above: Result Comment: LIPI D PROFILE Performed By: #### 2 70519 ####[facility],[address] [place] [address] 11130 Triglyceride [Mass/Vol] 224 mg/dL High 0 - 150 [facility] Comment on above: Performed By: #### 2 46723 ####[facility],[address] [place] [address] 43141 TSHon 03-17-2020 TSH Qn 0.99 uIU/ml Normal 0.34 - 5.60 [facility] Comment on above: Performed By: #### 2 40040 ####[facility],[address] [place] [address] 50043 URINE CREATININE AND PROTEIN RATIOon 03-11-2020 CREATININE UR 65.8 mg/dl Normal [facility] Comment on above: Performed By: #### 2 10843 ####[facility],[address] [place] [address] 73949 PC RATIO 0.06 mg/dL Normal 0.00 - 10.00 [facility] Comment on above: Performed By: #### 2 43250 ####[facility],[address] [place] [address] 92611 Protein (U) [Mass/Vol] mg/dL Normal 0.00 - 10.00 [facility] Comment on above: Performed By: #### 2 53958 ####[facility],[address] [place] [address] CBC + DIFFon 03-10-2020 Basophils (Bld) [#/Vol] 0.10 x10EE3/UL Normal 0. 00 - 0.10 [facility] Comment on above: Performed By: #### 2 61157 #### [facility],[address] [place] [address] 87564 Basophils/100 WBC (Bld) 1.3 % Normal 0.0 - 2.0 [facility] Comment on above: Performed By: #### 2 47516 #### [place] [address] CBC + DIFF Normal [facility] Comment on above: Result Comment: CBC- COMPLETE BLOOD COUNT Performed By: #### 2 15448 #### [place] [id number] Eosinophils (Bld) [#/Vol] 0.40 x10EE3/UL Normal 0.00 - 0.50 [facility] Comment on above: Performed By: #### 2 04685 #### [facility],[address] [place] [address] 51464 Eosinophils/100 WBC (Bld) 5.7 % Normal 0.0 - 7.0 [facility] Comment on above: Performed By: #### 2 58571 #### [place] [address] Erythrocyte distribution width (RBC) [Ratio] 13.3 % Normal 12.0 - 15.6 [facility] Comment on above: Performed By: #### 2 09963 #### [facility],[address] [place], [place] [address] Hematocrit (Bld) [Volume fraction] 40.4 % Normal 40.0 - 52.0 [facility] Comment on above: Performed By: #### 2 82532 #### [facility],[address] [place] [address] 68483 Hemoglobin (Bld) [Mass/Vol] 13.8 g/dL Normal 13.0 - 17.5 [facility] Comment on above: Performed By: #### 2 06581 #### [facility],[address] [place], [place] [address] Lymphocytes (Bld) [#/Vol] 1.30 x10EE3/UL Normal 0.80 - 2.80 [facility] Comment on above: Performed By: #### 2 00621 #### [facility],[address] [place] [address] 44552 Lymphocytes/100 WBC (Bld) 20.1 % Normal 20.0 - 45.0 [facility] Comment on above: Performed By: #### 2 43608 #### [facility],[address] [place] [address] 23693 MANUAL DIFF N/A Normal [facility] Comment on above: Performed By: #### 2 20950 #### [facility],[address] [place] [address] 05637 MCH (RBC) [Entitic mass] 30 pg Normal 27 - 33 [facility] Comment on above: Performed By: #### 2 11728 #### [facility],[address] [place] [address] 27897 MCHC (RBC) [Mass/Vol] 34 X10 3 Normal 32 - 36 [facility] Comment on above: Performed By: #### 2 52095 #### [facility],[address] [place] [address] 37228 MCV (RBC) [Entitic vol] 88 fL Normal 81 - 98 [facility] Comment on above: Performed By: #### 2 96076 #### [facility],[address] [place] [address] 46949 Monocytes (Bld) [#/Vol] 0.90 x10EE3/UL Normal 0. 20 - 1.00 [facility] Comment on above: Performed By: #### 2 54252 #### [facility],[address] [place] [address] 27713 MONOS % 13.7 % High 0.0 - 10.0 [facility] Comment on above: Performed By: #### 2 31785 #### [facility],[address] [place] [address] 94800 Morphology Cris[place] (Bld) [Interp] N/A Normal [facility] Comment on above: Performed By: #### 2 45234 #### [address] [address] Neutrophils (Bld) [#/Vol] 3.80 x10EE3/UL Normal 1.50 - 7.10 [facility] Comment on above: Performed By: #### 2 91073 #### [address] [address] Neutrophils/100 WBC (Bld) 59.2 % Normal 46.0 - 76.0 [facility] Comment on above: Performed By: #### 2 06023 #### [facility],[address] [place] [address] 10384 Platelet mean volume (Bld) [Entitic vol] 7.8 fL Normal 6.4 - 10.5 [facility] Comment on above: Result Comment: AUTO MATED DIFFERENTIAL Performed By: #### 2 61277 #### [address] [address] Platelets (Bld) [#/Vol] 291 x10EE3/UL Normal 150 - 450 [facility] Comment on above: Performed By: #### 2 49419 #### [facility],[address] [place] [address] 61168 RBC (Bld) [#/Vol] 4.57 x 10EE6/UL Normal 4.50 - 6.00 [facility] Comment on above: Performed By: #### 2 29508 #### [facility],[address] [place] [address] 81634 WBC (Bld) [#/Vol] 6.4 x 10EE3/UL Normal 4.5 - 10.8 [facility] Comment on above: Performed By: #### 2 97982 #### [facility],[address] [place] [address] 25472 LITHIUMon 03-10-2020 [place] [Moles/Vol] 0.8 mmol/L Normal 0.6 - 1.2 [facility] Comment on above: Performed By: #### 2 39072 #### [facility],[address] [place] [address] 87915 RENAL FUNCTION PANEL WITH eG FRon 03-10-2020 Age - Reported 54 years Normal [facility] Comment on above: Performed By: #### 2 41375 ####[facility],[address] [place] [address] 41110 Albumin [Mass/Vol] 3.5 g/dL Normal 3.4 - 4.8 [facility] Comment on above: Performed By: #### 2 78047 ####[facility],[address] [place] [address] 87725 B/C RATIO 8 ratio Normal 0 - 30 [facility] Comment on above: Performed By: #### 2 12006 ####[facility],[address] [place] [address] 27625 Calcium [Mass/Vol] 9.4 mg/dL Normal 8.6 - 10.2 [facility] Comment on above: Performed By: #### 2 51474 ####[facility],[address] [place] [address] 13968 Chloride [Moles/Vol] 106 mmol/L Normal 98 - 107 [facility] Comment on above: Performed By: #### 2 91494 ####[facility],[address] [place] [address] 75084 CO2 [Moles/Vol] 26.1 mmol/L Normal 21.0 - 31.0 [facility] Comment on above: Performed By: #### 2 82381 ####[facility],[address] [place] [address] 48821 Creatinine [Mass/Vol] 2.5 mg/dL High 0.7 - 1.3 [facility] Comment on above: Performed By: #### 2 64242 ####[facility],[address] [place] [address] 79420 GFR/1.73 sq M predicted among non-blacks MDRD (S/P/Bld) [Vol rate/Area] 33 ML/MINUTE Low 60 - 999 [facility] Comment on above: Result Comment: ACCO RDING TO THE NATIONAL KIDNEY DISEASE EDUCATION PROGRAM(NKDE), A NORMAL eGFR IS A VALUE GREATER THAN OR EQUAL TO 60 ML/MIN/1.73 SQ METERS. CHRONIC KIDNEY DISEASE: <60mL/MIN/1.73 SQ METERS KIDNEY FAILURE: <15mL/MIN/1.73 SQ METERS THIS TEST SHOULD ONLY BE USED FOR PATIENTS 18 YEARS OF AGE AND OLDER. Performed By: #### 2 65196 ####[facility],[address] [place] [address] 10492 GFR/1.73 sq M predicted among non-blacks MDRD (S/P/Bld) [Vol rate/Area] 27 ML/MINUTE Low 60 - 999 [facility] Comment on above: Performed By: #### 2 30198 ####[facility],[address] [place] [address] 38215 Glucose [Mass/Vol] 114 mg/dL High 74 - 106 [facility] Comment on above: Performed By: #### 2 13286 ####[facility],[address] [place] [address] 98701 Phosphate [Mass/Vol] 4.6 mg/dL Normal 2.7 - 4.9 [facility] Comment on above: Performed By: #### 2 03803 ####[facility],[address] [place] [address] 98558 Potassium [Moles/Vol] 3.9 mmol/L Normal 3.5 - 5.1 [facility] Comment on above: Performed By: #### 2 21953 ####[facility],[address] [place] [address] RENAL FUNCTION PANEL WITH eGFR Normal [facility] Comment on above: Result Comment: JESSICA L FUNCTION PANEL Performed By: #### 2 61110 ####[place] [address] Sodium [Moles/Vol] 139 mmol/L Normal 136 - 145 [facility] Comment on above: Performed By: #### 2 45934 ####[place] [address] Urea nitrogen [Mass/Vol] 21 mg/dL High 6 - 20 [facility] Comment on above: Performed By: #### 2 78193 ####[address] [address] CBC + DIFFon 02-04-2020 Basophils (Bld) [#/Vol] 0.10 x10EE3/UL Normal 0. 00 - 0.10 [facility] Comment on above: Performed By: #### 2 18194 #### [facility],[address] [place] [address] 33911 Basophils/100 WBC (Bld) 1.3 % Normal 0.0 - 2.0 [facility] Comment on above: Performed By: #### 2 58884 #### [facility],[address] [place] [address] CBC + DIFF Normal [facility] Comment on above: Result Comment: CBC- COMPLETE BLOOD COUNT Performed By: #### 2 73280 #### [address],[place] [address] Eosinophils (Bld) [#/Vol] 0.40 x10EE3/UL Normal 0.00 - 0.50 [facility] Comment on above: Performed By: #### 2 68788 #### [facility],[address] [place], [place] [address] Eosinophils/100 WBC (Bld) 5.6 % Normal 0.0 - 7.0 [facility] Comment on above: Performed By: #### 2 54129 #### [facility],[address] [place] [address] Erythrocyte distribution width (RBC) [Ratio] 13.2 % Normal 12.0 - 15.6 [facility] Comment on above: Performed By: #### 2 01603 #### [facility],[address] [place] [address] Hematocrit (Bld) [Volume fraction] 38.7 % Low 40.0 - 52.0 [facility] Comment on above: Performed By: #### 2 31046 #### [facility],[address] [place] [address] Hemoglobin (Bld) [Mass/Vol] 13.2 g/dL Normal 13.0 - 17.5 [facility] Comment on above: Performed By: #### 2 80531 #### [facility],[address] [place] [address] 46104 Lymphocytes (Bld) [#/Vol] 1.40 x10EE3/UL Normal 0.80 - 2.80 [facility] Comment on above: Performed By: #### 2 05737 #### [facility],[address] [place] [address] 37074 Lymphocytes/100 WBC (Bld) 18.1 % Low 20.0 - 45.0 [facility] Comment on above: Performed By: #### 2 71822 #### [place] [address] MANUAL DIFF N/A Normal [facility] Comment on above: Performed By: #### 2 63074 #### [facility],[address] [place], [place] [address] MCH (RBC) [Entitic mass] 30 pg Normal 27 - 33 [facility] Comment on above: Performed By: #### 2 23639 #### [facility],[address] [place], [place] [address] MCHC (RBC) [Mass/Vol] 34 X10 3 Normal 32 - 36 [facility] Comment on above: Performed By: #### 2 50091 #### [facility],[address] [place], [place] [address] MCV (RBC) [Entitic vol] 88 fL Normal 81 - 98 [facility] Comment on above: Performed By: #### 2 74808 #### [facility],[address] [place], [place] [address] Monocytes (Bld) [#/Vol] 1.10 x10EE3/UL High 0. 20 - 1.00 [facility] Comment on above: Performed By: #### 2 39531 #### [facility],[address] [place], [place] [address] MONOS % 13.6 % High 0.0 - 10.0 [facility] Comment on above: Performed By: #### 2 58920 #### [facility],[address] [place] [address] 61707 Morphology [place] (Bld) [Interp] N/A Normal [facility] Comment on above: Performed By: #### 2 95866 #### [facility],[address] [place] [address] 00438 Neutrophils (Bld) [#/Vol] 4.80 x10EE3/UL Normal 1.50 - 7.10 [facility] Comment on above: Performed By: #### 2 43507 #### [facility],[address],[place] [address] Neutrophils/100 WBC (Bld) 61.4 % Normal 46.0 - 76.0 [facility] Comment on above: Performed By: #### 2 86791 #### [place] [id number] Platelet mean volume (Bld) [Entitic vol] 7.7 fL Normal 6.4 - 10.5 [facility] Comment on above: Result Comment: AUTO MATED DIFFERENTIAL Performed By: #### 2 22104 #### [place] [id number] Platelets (Bld) [#/Vol] 298 x10EE3/UL Normal 150 - 450 [facility] Comment on above: Performed By: #### 2 61938 #### [address] [address] RBC (Bld) [#/Vol] 4.40 x 10EE6/UL Low 4.50 - 6.00 [facility] Comment on above: Performed By: #### 2 53882 #### [address] [address] WBC (Bld) [#/Vol] 7.8 x 10EE3/UL Normal 4.5 - 10.8 [facility] Comment on above: Performed By: #### 2 86573 #### [address] [address] CULTURE URINEon 02-04-2020 CULTURE URINE CULTURE URINE _URINE CULTURE_ M I C R O B I O L O G Y R E P O R T FINAL ------- Antimicrobial Susceptibility and Organism Identification Report -------- Specimen Number : [id number] Requested : 02/04/20 Specimen Source : URINE Collected : 02/04/20 02:50 Arredondo of Isolation : MEME HUANG Received : 02/04/20 02:50 Requesting Physician : FLORECITA -- Patient/Specimen Tests and Comments Specimen Comments -------- -------- FINAL REPORT: NO GROWTH AT 48 HOURS -- Tech : Source : URINE ID # : [id number] FINAL Report Date : / / : Collected : 02/04/20 02:50 02/06/20.1208.KLS. 02/05/20.10.JLN. 02/06/20.KLS.COMPLETE Normal [facility] Comment on above: Performed By: #### 2 57714 #### [facility],[address] [place] [address] 83510 RENAL FUNCTION PANEL WITH eG FRon 02-04-2020 Age - Reported 54 years Normal [facility] Comment on above: Performed By: #### 2 20698 #### [facility],[address] [place] [address] 14710 Albumin [Mass/Vol] 3.5 g/dL Normal 3.4 - 4.8 [facility] Comment on above: Performed By: #### 2 11488 #### [facility],[address] [place] [address] 89019 B/C RATIO 9 ratio Normal 0 - 30 [facility] Comment on above: Performed By: #### 2 28506 #### [facility],[address] [place] [address] 66021 Calcium [Mass/Vol] 9.4 mg/dL Normal 8.6 - 10.2 [facility] Comment on above: Performed By: #### 2 00186 #### [facility],[address] [place] [address] 50038 Chloride [Moles/Vol] 107 mmol/L Normal 98 - 107 [facility] Comment on above: Performed By: #### 2 54775 #### [facility],[address] [place] [address] 94122 CO2 [Moles/Vol] 25.6 mmol/L Normal 21.0 - 31.0 [facility] Comment on above: Performed By: #### 2 74315 #### [facility],[address] [place] [address] 35312 Creatinine [Mass/Vol] 2.4 mg/dL High 0.7 - 1.3 [facility] Comment on above: Performed By: #### 2 32246 #### [facility],[address] [place] [address] 41734 GFR/1.73 sq M predicted among non-blacks MDRD (S/P/Bld) [Vol rate/Area] 28 ML/MINUTE Low 60 - 999 [facility] Comment on above: Performed By: #### 2 66112 #### [facility],[address] [place] [address] 92318 GFR/1.73 sq M predicted among non-blacks MDRD (S/P/Bld) [Vol rate/Area] 34 ML/MINUTE Low 60 - 999 [facility] Comment on above: Result Comment: ACCO RDING TO THE NATIONAL KIDNEY DISEASE EDUCATION PROGRAM(NKDE), A NORMAL eGFR IS A VALUE GREATER THAN OR EQUAL TO 60 ML/MIN/1.73 SQ METERS. CHRONIC KIDNEY DISEASE: <60mL/MIN/1.73 SQ METERS KIDNEY FAILURE: <15mL/MIN/1.73 SQ METERS THIS TEST SHOULD ONLY BE USED FOR PATIENTS 18 YEARS OF AGE AND OLDER. Performed By: #### 2 36073 #### [facility],[address] [place] [address] 91608 Glucose [Mass/Vol] 114 mg/dL High 74 - 106 [facility] Comment on above: Performed By: #### 2 76705 #### [facility],[address] [place] [address] 39278 Phosphate [Mass/Vol] 4.5 mg/dL Normal 2.7 - 4.9 [facility] Comment on above: Performed By: #### 2 07979 #### [facility],[address] [place] [address] 69294 Potassium [Moles/Vol] 3.8 mmol/L Normal 3.5 - 5.1 [facility] Comment on above: Performed By: #### 2 18988 #### [facility],[address] [place] [address] 60361 RENAL FUNCTION PANEL WITH eGFR Normal [facility] Comment on above: Result Comment: JESSICA L FUNCTION PANEL Performed By: #### 2 23517 #### [facility],[address] [place] [address] 23168 Sodium [Moles/Vol] 139 mmol/L Normal 136 - 145 [facility] Comment on above: Performed By: #### 2 67484 #### [facility],[address] [place] [address] Urea nitrogen [Mass/Vol] 22 mg/dL High 6 - [facility] Comment on above: Performed By: #### 2 15474 #### [facility],[address] [place], [place] [phone] URINALYSISon 02-04-2020 Amorphous NONE Normal [facility] Comment on above: Performed By: #### 2 94668 #### [facility],[address] [place] [address] Bacteria LM.HPF (Urine sed) [#/Area] NONE Normal [facility] Comment on above: Performed By: #### 2 90895 #### [facility],[address] [place], [place] [address] Bilirubin [Mass/Vol] Negative Normal NORMAL: NEGATIVE [facility] Comment on above: Performed By: #### 2 23487 #### [facility],[address] [place] [address] Blood Negative Normal NORMAL: NEGATIVE [facility] Comment on above: Performed By: #### 2 91348 #### [facility],[address] [place], [place] [address] Casts LM.LPF (Urine sed) [#/Area] NONE Normal [facility] Comment on above: Performed By: #### 2 61133 #### [facility],[address] [place] [address] Clarity (U) clear Normal NORMAL: CLEAR [facility] Comment on above: Performed By: #### 2 36191 #### [facility],[address] [place], [place] [address] Color (U) yellow Normal NORMAL: YELLOW [facility] Comment on above: Performed By: #### 2 35530 #### [facility],[address] [place], [place] [address] Crystals LM Nom (Urine sed) NONE Normal [facility] Comment on above: Performed By: #### 2 30607 #### [facility],[address] [place] [address],[facility] [address] Epi Cells NONE Normal [facility] Comment on above: Performed By: #### 2 93035 #### [facility],[address] [place] [address],[facility] [address] Glucose [Mass/Vol] NORM Normal NORMAL: NORMAL [facility] Comment on above: Performed By: #### 2 88926 #### [facility],[address] [place] [address],[facility] [address] Ketone Negative Normal NORMAL: NEGATIVE [facility] Comment on above: Performed By: #### 2 26960 #### [facility],[address] [place] [address],[facility] [address] Microscopic SEE BELOW Normal [facility] Comment on above: Result Comment: MICR OSCOPIC Performed By: #### 2 37802 #### [facility],[address] [place] [address] 41989 Mucous NONE Normal [facility] Comment on above: Performed By: #### 2 07238 #### [facility],[address] [place] [address] 00549 Nitrite Ql (U) Negative Normal NORMAL: NEGATIVE [facility] Comment on above: Performed By: #### 2 34570 #### [facility],[address] [place] [address] 60295 pH (Bld) 6 Normal NORMAL: 5.0-8.0 [facility] Comment on above: Performed By: #### 2 66426 #### [facility],[address] [place] [address] 37130 Protein (U) [Mass/Vol] Negative Normal JENN L: NEGATIVE [facility] Comment on above: Performed By: #### 2 46132 #### [facility],[address] [place] [address] 71356 Rbc NONE Normal 0-3/hpf [facility] Comment on above: Performed By: #### 2 95880 #### [facility],[address] [place] [address] Sp [place] 1.015 Normal NORMAL: 1.010-1.03 0 [facility] Comment on above: Performed By: #### 2 47388 #### [facility],[address] [place] [address] Specimen type Nom (Spec) Clean catch Normal [facility] Comment on above: Performed By: #### 2 05790 #### [facility],[address] [place] [address] Urobilinog NORM Normal NORMAL: NORMAL [facility] Comment on above: Performed By: #### 2 98453 #### [facility],[address] [place] [address] Wbc 1-5 Normal 0-5/hpf [facility] Comment on above: Performed By: #### 2 40881 #### [facility],[address] [place] [address] WBC (Bld) [#/Vol] 25 Abnormal NORMAL: NEGATIVE [facility] Comment on above: Performed By: #### 2 12866 #### [facility],[address] [place] [address] Yeast LM Ql (Urine sed) NONE Normal [facility] Comment on above: Performed By: #### 2 17623 #### [facility],[address] [place] [address] URINE CREATININE AND PROTEIN RATIOon 02-04-2020 CREATININE UR 143.6 mg/dl Normal [facility] Comment on above: Performed By: #### 2 99603 #### [facility],[address] [place] [address] PC RATIO 0.05 mg/dL Normal 0.00 - 10.00 [facility] Comment on above: Performed By: #### 2 08839 #### [facility],[address] [place] [address] 45687 Protein (U) [Mass/Vol] 7.00 mg/dL Normal 0.00 - 10.00 [facility] Comment on above: Performed By: #### 2 89545 #### [facility],[address] [place] [address] 95069 ALBUMIN PLASMAon 01-07-2020 Albumin [Mass/Vol] 3.7 g/dL Normal 3.4 - 4.8 [facility] Comment on above: Performed By: #### 2 33104 #### [facility],[address] [place] [address] 13585 BMP with eGFRon 01-07-2020 Age - Reported 54 years Normal [facility] Comment on above: Performed By: #### 2 14479 #### [facility],[address] [place] [address] 40724 Anion gap [Moles/Vol] 13 mmol/L Normal 10 - 20 [facility] Comment on above: Performed By: #### 2 88444 #### [facility],[address] [place] [address] 19613 Calcium [Mass/Vol] 9.3 mg/dL Normal 8.6 - 10.2 [facility] Comment on above: Performed By: #### 2 93814 #### [facility],[address] [place] [address] 85210 Chloride [Moles/Vol] 108 mmol/L High 98 - 107 [facility] Comment on above: Performed By: #### 2 18579 #### [facility],[address] [place] [address] 28690 CO2 [Moles/Vol] 26.1 mmol/L Normal 21.0 - 31.0 [facility] Comment on above: Performed By: #### 2 14545 #### [facility],[address] [place] [address] 75864 Creatinine [Mass/Vol] 2.0 mg/dL High 0.7 - 1.3 [facility] Comment on above: Performed By: #### 2 38184 #### [facility],[address] [place] [address] 36242 GFR/1.73 sq M predicted among non-blacks MDRD (S/P/Bld) [Vol rate/Area] Normal [facility] Comment on above: Result Comment: BASI C METABOLIC PANEL Performed By: #### 2 32674 #### [facility],[address] [place] [address] 79747 GFR/1.73 sq M predicted among non-blacks MDRD (S/P/Bld) [Vol rate/Area] 42 ML/MINUTE Low 60 - 999 [facility] Comment on above: Result Comment: ACCO RDING TO THE NATIONAL KIDNEY DISEASE EDUCATION PROGRAM(NKDE), A NORMAL eGFR IS A VALUE GREATER THAN OR EQUAL TO 60 ML/MIN/1.73 SQ METERS. CHRONIC KIDNEY DISEASE: <60mL/MIN/1.73 SQ METERS KIDNEY FAILURE: <15mL/MIN/1.73 SQ METERS THIS TEST SHOULD ONLY BE USED FOR PATIENTS 18 YEARS OF AGE AND OLDER. Performed By: #### 2 44099 #### [address] [address] GFR/1.73 sq M predicted among non-blacks MDRD (S/P/Bld) [Vol rate/Area] 35 ML/MINUTE Low 60 - 999 [facility] Comment on above: Performed By: #### 2 19919 #### [facility],[address] [place] [address] 81718 Glucose [Mass/Vol] 99 mg/dL Normal 74 - 106 [facility] Comment on above: Performed By: #### 2 36003 #### [address] [address] Potassium [Moles/Vol] 3.8 mmol/L Normal 3.5 - 5.1 [facility] Comment on above: Performed By: #### 2 09822 #### [facility],[address] [place] [address] Sodium [Moles/Vol] 143 mmol/L Normal 136 - 145 [facility] Comment on above: Performed By: #### 2 25025 #### [facility],[address] [place] [address] Urea nitrogen [Mass/Vol] 22 mg/dL High 6 - 20 [facility] Comment on above: Performed By: #### 2 86541 #### [facility],[address] [place] [address] 09596 CBC + DIFFon 01-07-2020 Basophils (Bld) [#/Vol] 0.10 x10EE3/UL Normal 0. 00 - 0.10 [facility] Comment on above: Performed By: #### 2 86324 #### [facility],[address] [place] [address] 69234 Basophils/100 WBC (Bld) 1.0 % Normal 0.0 - 2.0 [facility] Comment on above: Performed By: #### 2 50632 #### [facility],[address] [place] [address] 30196 CBC + DIFF Normal [facility] Comment on above: Result Comment: CBC- COMPLETE BLOOD COUNT Performed By: #### 2 84712 #### [facility],[address] [place] [address] 49461 Eosinophils (Bld) [#/Vol] 0.30 x10EE3/UL Normal 0.00 - 0.50 [facility] Comment on above: Performed By: #### 2 89320 #### [facility],[address] [place] [address] 13175 Eosinophils/100 WBC (Bld) 3.3 % Normal 0.0 - 7.0 [facility] Comment on above: Performed By: #### 2 30012 #### [facility],[address] [place] [address] 25894 Erythrocyte distribution width (RBC) [Ratio] 13.1 % Normal 12.0 - 15.6 [facility] Comment on above: Performed By: #### 2 55390 #### [facility],[address] [place] [address] Hematocrit (Bld) [Volume fraction] 39.0 % Low 40.0 - 52.0 [facility] Comment on above: Performed By: #### 2 95557 #### [facility],[address] [place] [address] Hemoglobin (Bld) [Mass/Vol] 13.4 g/dL Normal 13.0 - 17.5 [facility] Comment on above: Performed By: #### 2 29135 #### [facility],[address] [place] [address] Lymphocytes (Bld) [#/Vol] 1.90 x10EE3/UL Normal 0.80 - 2.80 [facility] Comment on above: Performed By: #### 2 71110 #### [facility],[address] [place], [place] [address] Lymphocytes/100 WBC (Bld) 20.6 % Normal 20.0 - 45.0 [facility] Comment on above: Performed By: #### 2 91670 #### [place] [id number] MANUAL DIFF N/A Normal [facility] Comment on above: Performed By: #### 2 39040 #### [facility],[address] [place] [address] 84575 MCH (RBC) [Entitic mass] 30 pg Normal 27 - 33 [facility] Comment on above: Performed By: #### 2 61055 #### [facility],[address] [place] [address] 42768 MCHC (RBC) [Mass/Vol] 34 X10 3 Normal 32 - 36 [facility] Comment on above: Performed By: #### 2 81636 #### [address],[place] [address] MCV (RBC) [Entitic vol] 88 fL Normal 81 - 98 [facility] Comment on above: Performed By: #### 2 07121 #### [facility],[address] [place] [address] 00559 Monocytes (Bld) [#/Vol] 0.90 x10EE3/UL Normal 0. 20 - 1.00 [facility] Comment on above: Performed By: #### 2 65386 #### [facility],[address] [place] [address] 81561 MONOS % 10.0 % Normal 0.0 - 10.0 [facility] Comment on above: Performed By: #### 2 37781 #### [facility],[address] [place] [address] 98852 Morphology Crispin (Bld) [Interp] N/A Normal [facility] Comment on above: Performed By: #### 2 46679 #### [facility],[address] [place] [address] 29797 Neutrophils (Bld) [#/Vol] 5.90 x10EE3/UL Normal 1.50 - 7.10 [facility] Comment on above: Performed By: #### 2 22103 #### [address] [address] Neutrophils/100 WBC (Bld) 65.1 % Normal 46.0 - 76.0 [facility] Comment on above: Performed By: #### 2 96000 #### [facility],[address] [place] [address] 93353 Platelet mean volume (Bld) [Entitic vol] 7.7 fL Normal 6.4 - 10.5 [facility] Comment on above: Result Comment: AUTO MATED DIFFERENTIAL Performed By: #### 2 89376 #### [facility],[address] [place] [address] 26810 Platelets (Bld) [#/Vol] 260 x10EE3/UL Normal 150 - 450 [facility] Comment on above: Performed By: #### 2 55399 #### [facility],[address] [place] [address] RBC (Bld) [#/Vol] 4.41 x 10EE6/UL Low 4.50 - 6.00 [facility] Comment on above: Performed By: #### 2 58311 #### [facility],[address] [place] [address] WBC (Bld) [#/Vol] 9.1 x 10EE3/UL Normal 4.5 - 10.8 [facility] Comment on above: Performed By: #### 2 94397 #### [facility],[address] [place] [address] CULTURE URINEon 01-07-2020 CULTURE URINE CULTURE URINE _URINE CULTURE_ M I C R O B I O L O G Y R E P O R T FINAL ------- Antimicrobial Susceptibility and Organism Identification Report -------- Specimen Number : [id number] Requested : 01/07/20 Specimen Source : CLEAN CATCH URINE Collected : 01/07/20 02:30 Arredondo of Isolation : MEME HUANG Received : 01/07/20 02:30 Requesting Physician : FLORECITA -- Patient/Specimen Tests and Comments Specimen Comments -------- -------- FINAL REPORT: NO GROWTH AT 48 HOURS -- Tech : Source : CLEAN CATCH URINE ID # : [id number] FINAL Report Date : / / : Collected : 01/07/20 02:30 01/09/20.1027.BKO. 01/08/20.1302.KLS. 01/09/20.1027.BKO.COMPLETE 01/09/20.1027.BKO.to [facility] via fax Normal [facility] Comment on above: Performed By: #### 2 12532 #### [facility],[address] [place] [address] 21425 LITHIUMon 01-07-2020 [place] [Moles/Vol] 0.6 mmol/L Normal 0.6 - 1.2 [facility] Comment on above: Performed By: #### 2 37851 #### [facility],[address] [place] [address] 49992 URINALYSISon 01-07-2020 Bilirubin [Mass/Vol] Negative Normal NORMAL: NEGATIVE [facility] Comment on above: Performed By: #### 2 10472 #### [facility],[address] [place] [address] 49751 Blood Negative Normal NORMAL: NEGATIVE [facility] Comment on above: Performed By: #### 2 41844 #### [facility],[address] [place] [address] 84989 Clarity (U) clear Normal NORMAL: CLEAR [facility] Comment on above: Performed By: #### 2 28740 #### [facility],[address] [place], [place] [id number] Color (U) p.yel Normal NORMAL: YELLOW [facility] Comment on above: Performed By: #### 2 82660 #### [facility],[address] [place] [address] 91013 Glucose [Mass/Vol] NORM Normal NORMAL: NORMAL [facility] Comment on above: Performed By: #### 2 24451 #### [facility],[address] [place], [place] [address] Ketone Negative Normal NORMAL: NEGATIVE [facility] Comment on above: Performed By: #### 2 11347 #### [facility],[address] [place] [address] 86192 Microscopic NOT INDICATED Normal [facility] Comment on above: Performed By: #### 2 35072 #### [facility],[address] [place] [address] 03513 Nitrite Ql (U) Negative Normal NORMAL: NEGATIVE [facility] Comment on above: Performed By: #### 2 85802 #### [facility],[address] [place] [address] 69604 pH (Bld) 6.5 Normal NORMAL: 5.0-8.0 [facility] Comment on above: Performed By: #### 2 77714 #### [facility],[address] [place] [address] 07948 Protein (U) [Mass/Vol] Negative Normal JENN L: NEGATIVE [facility] Comment on above: Performed By: #### 2 45159 #### [facility],[address] [place] [address] 89266 Sp [place] 1.010 Normal NORMAL: 1.010-1.03 0 [facility] Comment on above: Performed By: #### 2 41500 #### [facility],[address] [place] [address] Specimen type Nom (Spec) Clean catch Normal [facility] Comment on above: Performed By: #### 2 73699 #### [facility],[address] [place], [place] [address] Urobilinog NORM Normal NORMAL: NORMAL [facility] Comment on above: Performed By: #### 2 81818 #### [facility],[address] [place] [address] 89712 WBC (Bld) [#/Vol] Negative Normal NORMAL: NEGATIVE [facility] Comment on above: Performed By: #### 2 05200 #### [facility],[address] [place], [place] [address] URINE CREATININE AND PROTEIN RATIOon 01-07-2020 CREATININE UR 75.6 mg/dl Normal [facility] Comment on above: Performed By: #### 2 78131 #### [facility],[address] [place] [address] 23024 PC RATIO 0.07 mg/dL Normal 0.00 - 10.00 [facility] Comment on above: Performed By: #### 2 62385 #### [facility],[address] [place] [address] 41804 Protein (U) [Mass/Vol] mg/dL Normal 0.00 - 10.00 [facility] Comment on above: Performed By: #### 2 95107 #### [facility],[address] [place] [address] 17087 CBC + DIFFon 12-10-2019 Basophils (Bld) [#/Vol] 0.10 x10EE3/UL Normal 0. 00 - 0.10 [facility] Comment on above: Performed By: #### 2 21949 #### [facility],[address] [place], [place] [address] Basophils/100 WBC (Bld) 0.7 % Normal 0.0 - 2.0 [facility] Comment on above: Performed By: #### 2 17324 #### [facility],[address] [place] [address] CBC + DIFF Normal [facility] Comment on above: Result Comment: CBC- COMPLETE BLOOD COUNT Performed By: #### 2 67164 #### [facility],[address] [place] [address] Eosinophils (Bld) [#/Vol] 0.30 x10EE3/UL Normal 0.00 - 0.50 [facility] Comment on above: Performed By: #### 2 05252 #### [facility],[address] [place], [place] [address] Eosinophils/100 WBC (Bld) 3.2 % Normal 0.0 - 7.0 [facility] Comment on above: Performed By: #### 2 79085 #### [facility],[address] [place] [address] Erythrocyte distribution width (RBC) [Ratio] 12.7 % Normal 12.0 - 15.6 [facility] Comment on above: Performed By: #### 2 77278 #### [facility],[address] [place] [address] Hematocrit (Bld) [Volume fraction] 38.7 % Low 40.0 - 52.0 [facility] Comment on above: Performed By: #### 2 99319 #### [facility],[address] [place], [place] [address] Hemoglobin (Bld) [Mass/Vol] 13.4 g/dL Normal 13.0 - 17.5 [facility] Comment on above: Performed By: #### 2 85885 #### [facility],[address] [place] [address] 92621 Lymphocytes (Bld) [#/Vol] 2.10 x10EE3/UL Normal 0.80 - 2.80 [facility] Comment on above: Performed By: #### 2 56517 #### [facility],[address] [place] [address] 11505 Lymphocytes/100 WBC (Bld) 21.3 % Normal 20.0 - 45.0 [facility] Comment on above: Performed By: #### 2 23984 #### [facility],[address] [place] [address] 44774 MANUAL DIFF N/A Normal [facility] Comment on above: Performed By: #### 2 06304 #### [facility],[address] [place] [address] 03568 MCH (RBC) [Entitic mass] 31 pg Normal 27 - 33 [facility] Comment on above: Performed By: #### 2 58488 #### [facility],[address] [place] [address] 98693 MCHC (RBC) [Mass/Vol] 35 X10 3 Normal 32 - 36 [facility] Comment on above: Performed By: #### 2 85044 #### [facility],[address] [place] [address] 80340 MCV (RBC) [Entitic vol] 89 fL Normal 81 - 98 [facility] Comment on above: Performed By: #### 2 49588 #### [facility],[address] [place] [address] 14852 Monocytes (Bld) [#/Vol] 1.00 x10EE3/UL Normal 0. 20 - 1.00 [facility] Comment on above: Performed By: #### 2 75494 #### [facility],[address] [place] [address] 96469 MONOS % 10.5 % High 0.0 - 10.0 [facility] Comment on above: Performed By: #### 2 31891 #### [facility],[address] [place] [address] 14642 Morphology [place] (Bld) [Interp] N/A Normal [facility] Comment on above: Performed By: #### 2 07357 #### [facility],[address] [place] [address] 11952 Neutrophils (Bld) [#/Vol] 6.30 x10EE3/UL Normal 1.50 - 7.10 [facility] Comment on above: Performed By: #### 2 71894 #### [facility],[address] [place] [address] 71819 Neutrophils/100 WBC (Bld) 64.3 % Normal 46.0 - 76.0 [facility] Comment on above: Performed By: #### 2 55595 #### [facility],[address] [place] [address] 51571 Platelet mean volume (Bld) [Entitic vol] 7.4 fL Normal 6.4 - 10.5 [facility] Comment on above: Result Comment: AUTO MATED DIFFERENTIAL Performed By: #### 2 72924 #### [facility],[address] [place] [address] 43380 Platelets (Bld) [#/Vol] 254 x10EE3/UL Normal 150 - 450 [facility] Comment on above: Performed By: #### 2 05779 #### [facility],[address] [place] [address] 13950 RBC (Bld) [#/Vol] 4.34 x 10EE6/UL Low 4.50 - 6.00 [facility] Comment on above: Performed By: #### 2 19699 #### [facility],[address] [place] [address] 27390 WBC (Bld) [#/Vol] 9.8 x 10EE3/UL Normal 4.5 - 10.8 Gerald l [facility] Comment on above: Performed By: #### 2 60714 #### Johan [facility],[address] [place], [place] [address] CULTURE URINEon 12-10-2019 CULTURE URINE CULTURE URINE _URINE CULTURE_ M I C R O B I O L O G Y R E P O R T FINAL ------- Antimicrobial Susceptibility and Organism Identification Report -------- Specimen Number : [id number] Requested : 12/09/19 Specimen Source : CLEAN CATCH URINE Collected : 12/09/19 23:45 Arredondo of Isolation : MEME HUANG Received : 12/09/19 23:45 Requesting Physician : FLORECITA -- Patient/Specimen Tests and Comments Specimen Comments -------- -------- FINAL REPORT: NO GROWTH AT 48 HOURS -- Tech : Source : CLEAN CATCH URINE ID # : [id number] FINAL Report Date : / / : Collected : 12/09/19 23:45 12/12/19.BKO. 12/11/19.38.BKO. 12/12/19.BKO.COMPLETE 12/12/19.BKO.to [facility] via fax Normal [facility] Comment on above: Performed By: #### 2 85547 #### [facility],[address] [place], [place] [address] LITHIUMon 12-10-2019 [place] [Moles/Vol] 0.6 mmol/L Normal 0.6 - 1.2 [facility] Comment on above: Performed By: #### 2 66476 #### [facility],[address] [place] [address] 63331 RENAL FUNCTION PANEL WITH eG FRon 12-10-2019 Age - Reported 54 years Normal [facility] Comment on above: Performed By: #### 2 62231 #### [facility],[address] [place] [address] 63648 Albumin [Mass/Vol] 3.6 g/dL Normal 3.4 - 4.8 [facility] Comment on above: Performed By: #### 2 68874 #### [facility],[address] [place] [address] 60634 B/C RATIO 12 ratio Normal 0 - 30 [facility] Comment on above: Performed By: #### 2 30962 #### [facility],[address] [place] [address] 94245 Calcium [Mass/Vol] 9.4 mg/dL Normal 8.6 - 10.2 [facility] Comment on above: Performed By: #### 2 32402 #### [facility],[address] [place], [place] [address] Chloride [Moles/Vol] 105 mmol/L Normal 98 - 107 [facility] Comment on above: Performed By: #### 2 78759 #### [facility],[address] [place] [address] CO2 [Moles/Vol] 24.4 mmol/L Normal 21.0 - 31.0 [facility] Comment on above: Performed By: #### 2 26138 #### [place] [address] Creatinine [Mass/Vol] 1.9 mg/dL High 0.7 - 1.3 [facility] Comment on above: Performed By: #### 2 86042 #### [place] [id number] GFR/1.73 sq M predicted among non-blacks MDRD (S/P/Bld) [Vol rate/Area] 37 ML/MINUTE Low 60 - 999 [facility] Comment on above: Performed By: #### 2 41983 #### [place] [address] GFR/1.73 sq M predicted among non-blacks MDRD (S/P/Bld) [Vol rate/Area] 45 ML/MINUTE Low 60 - 999 [facility] Comment on above: Result Comment: ACCO RDING TO THE NATIONAL KIDNEY DISEASE EDUCATION PROGRAM(NKDE), A NORMAL eGFR IS A VALUE GREATER THAN OR EQUAL TO 60 ML/MIN/1.73 SQ METERS. CHRONIC KIDNEY DISEASE: <60mL/MIN/1.73 SQ METERS KIDNEY FAILURE: <15mL/MIN/1.73 SQ METERS THIS TEST SHOULD ONLY BE USED FOR PATIENTS 18 YEARS OF AGE AND OLDER. Performed By: #### 2 10556 #### [place] [id number] Glucose [Mass/Vol] 106 mg/dL Normal 74 - 106 [facility] Comment on above: Performed By: #### 2 06082 #### [facility],[address] [place] [address] 86204 Phosphate [Mass/Vol] 5.0 mg/dL High 2.7 - 4.9 [facility] Comment on above: Performed By: #### 2 22152 #### [facility],[address] [place] [address] 73318 Potassium [Moles/Vol] 3.4 mmol/L Low 3.5 - 5.1 [facility] Comment on above: Performed By: #### 2 95522 #### [facility],[address] [place] [address] RENAL FUNCTION PANEL WITH eGFR Normal [facility] Comment on above: Result Comment: JESSICA L FUNCTION PANEL Performed By: #### 2 65945 #### [facility],[address] [place], [place] [address] Sodium [Moles/Vol] 139 mmol/L Normal 136 - 145 [facility] Comment on above: Performed By: #### 2 85180 #### [facility],[address] [place] [address] 45289 Urea nitrogen [Mass/Vol] 23 mg/dL High 6 - 20 [facility] Comment on above: Performed By: #### 2 35132 #### [facility],[address] [place] [address] 23889 URINALYSISon 12-10-2019 Bilirubin [Mass/Vol] Negative Normal NORMAL: NEGATIVE [facility] Comment on above: Performed By: #### 2 16842 #### [facility],[address] [place] [address] 47038 Blood Negative Normal NORMAL: NEGATIVE [facility] Comment on above: Performed By: #### 2 77292 #### [facility],[address] [place] [address] 93604 Clarity (U) clear Normal NORMAL: CLEAR [facility] Comment on above: Performed By: #### 2 08771 #### [facility],[address] [place] [address] 83207 Color (U) p.yel Normal NORMAL: YELLOW [facility] Comment on above: Performed By: #### 2 82290 #### [facility],[address] [place] [address] 60783 Glucose [Mass/Vol] NORM Normal NORMAL: NORMAL [facility] Comment on above: Performed By: #### 2 65042 #### [facility],[address] [place], [place] [address] Ketone Negative Normal NORMAL: NEGATIVE [facility] Comment on above: Performed By: #### 2 79869 #### [facility],[address] [place], [place] [address] Microscopic NOT INDICATED Normal [facility] Comment on above: Performed By: #### 2 76819 #### [facility],[address] [place] [address] 37509 Nitrite Ql (U) Negative Normal NORMAL: NEGATIVE [facility] Comment on above: Performed By: #### 2 04258 #### [facility],[address] [place] [address] 36164 pH (Bld) 6 Normal NORMAL: 5.0-8.0 [facility] Comment on above: Performed By: #### 2 11582 #### [facility],[address] [place] [address] 60795 Protein (U) [Mass/Vol] Negative Normal JENN L: NEGATIVE [facility] Comment on above: Performed By: #### 2 04218 #### [facility],[address] [place] [address] 22528 Sp [place] 1.015 Normal NORMAL: 1.010-1.03 0 [facility] Comment on above: Performed By: #### 2 17130 #### [facility],[address] [place] [address] Specimen type Nom (Spec) Clean catch Normal [facility] Comment on above: Performed By: #### 2 92599 #### [facility],[address] [place], [place] [id number] Urobilinog NORM Normal NORMAL: NORMAL [facility] Comment on above: Performed By: #### 2 26929 #### [facility],[address] [place], [place] [address] WBC (Bld) [#/Vol] Negative Normal NORMAL: NEGATIVE [facility] Comment on above: Performed By: #### 2 67095 #### [facility],[address] [place], [place] [address] URINE CREATININE AND PROTEIN RATIOon 12-10-2019 CREATININE UR 97.1 mg/dl Normal [facility] Comment on above: Performed By: #### 2 11709 #### [facility],[address] [place] [address] PC RATIO 0.07 mg/dL Normal 0.00 - 10.00 [facility] Comment on above: Performed By: #### 2 47598 #### [facility],[address] [place], [place] [address] Protein (U) [Mass/Vol] 7.00 mg/dL Normal 0.00 - 10.00 [facility] Comment on above: Performed By: #### 2 27695 #### [facility],[address] [place] [address] 89854 BMP with eGFRon 11-05-2019 Age - Reported 54 years Normal [facility] Comment on above: Performed By: #### 2 19376 #### [facility],[address] [place], [place] [address] Anion gap [Moles/Vol] 12 mmol/L Normal 10 - 20 [facility] Comment on above: Performed By: #### 2 04004 #### [facility],[address] [place] [address] 89597 Chloride [Moles/Vol] 105 mmol/L Normal 98 - 107 [facility] Comment on above: Performed By: #### 2 98528 #### [facility],[address] [place] [address] 09426 CO2 [Moles/Vol] 26.8 mmol/L Normal 21.0 - 31.0 [facility] Comment on above: Performed By: #### 2 29254 #### [facility],[address] [place] [address] 56162 GFR/1.73 sq M predicted among non-blacks MDRD (S/P/Bld) [Vol rate/Area] 38 ML/MINUTE Low 60 - 999 [facility] Comment on above: Result Comment: ACCO RDING TO THE NATIONAL KIDNEY DISEASE EDUCATION PROGRAM(NKDE), A NORMAL eGFR IS A VALUE GREATER THAN OR EQUAL TO 60 ML/MIN/1.73 SQ METERS. CHRONIC KIDNEY DISEASE: <60mL/MIN/1.73 SQ METERS KIDNEY FAILURE: <15mL/MIN/1.73 SQ METERS THIS TEST SHOULD ONLY BE USED FOR PATIENTS 18 YEARS OF AGE AND OLDER. Performed By: #### 2 82623 #### [facility],[address] [place] [address] 65974 GFR/1.73 sq M predicted among non-blacks MDRD (S/P/Bld) [Vol rate/Area] 31 ML/MINUTE Low 60 - 999 [facility] Comment on above: Performed By: #### 2 69470 #### [facility],[address] [place] [address] 57230 GFR/1.73 sq M predicted among non-blacks MDRD (S/P/Bld) [Vol rate/Area] Normal [facility] Comment on above: Result Comment: BASI C METABOLIC PANEL Performed By: #### 2 56864 #### [facility],[address] [place] [address] 12232 Potassium [Moles/Vol] 3.4 mmol/L Low 3.5 - 5.1 [facility] Comment on above: Performed By: #### 2 00879 #### [facility],[address] [place] [address] 14359 Sodium [Moles/Vol] 140 mmol/L Normal 136 - 145 [facility] Comment on above: Performed By: #### 2 82273 #### [facility],[address] [place] [address] 88509 CBC + DIFFon 11-05-2019 Basophils (Bld) [#/Vol] 0.10 x10EE3/UL Normal 0. 00 - 0.10 [facility] Comment on above: Performed By: #### 2 65304 #### [facility],[address] [place] [address] 49816 Basophils/100 WBC (Bld) 0.9 % Normal 0.0 - 2.0 [facility] Comment on above: Performed By: #### 2 33381 #### [facility],[address] [place] [address] 32129 CBC + DIFF Normal [facility] Comment on above: Result Comment: CBC- COMPLETE BLOOD COUNT Performed By: #### 2 50226 #### [facility],[address] [place] [address] 46035 Eosinophils (Bld) [#/Vol] 0.40 x10EE3/UL Normal 0.00 - 0.50 [facility] Comment on above: Performed By: #### 2 51834 #### [facility],[address] [place] [address] 63337 Eosinophils/100 WBC (Bld) 3.9 % Normal 0.0 - 7.0 [facility] Comment on above: Performed By: #### 2 57548 #### [facility],[address] [place] [address] 47039 Erythrocyte distribution width (RBC) [Ratio] 12.4 % Normal 12.0 - 15.6 [facility] Comment on above: Performed By: #### 2 80922 #### [facility],[address] [place] [address] Hematocrit (Bld) [Volume fraction] 39.9 % Low 40.0 - 52.0 [facility] Comment on above: Performed By: #### 2 33909 #### [facility],[address] [place] [address] Hemoglobin (Bld) [Mass/Vol] 13.3 g/dL Normal 13.0 - 17.5 [facility] Comment on above: Performed By: #### 2 00533 #### [facility],[address] [place] [address] Lymphocytes (Bld) [#/Vol] 1.90 x10EE3/UL Normal 0.80 - 2.80 [facility] Comment on above: Performed By: #### 2 40549 #### [facility],[address] [place], [place] [address] Lymphocytes/100 WBC (Bld) 20.3 % Normal 20.0 - 45.0 [facility] Comment on above: Performed By: #### 2 69071 #### [facility],[address] [place] [address] MANUAL DIFF N/A Normal [facility] Comment on above: Performed By: #### 2 18409 #### [facility],[address] [place], [place] [id number] MCH (RBC) [Entitic mass] 30 pg Normal 27 - 33 [facility] Comment on above: Performed By: #### 2 29316 #### [facility],[address] [place], [place] [id number] MCHC (RBC) [Mass/Vol] 33 X10 3 Normal 32 - 36 [facility] Comment on above: Performed By: #### 2 19696 #### [facility],[address],[place] [address] MCV (RBC) [Entitic vol] 91 fL Normal 81 - 98 [facility] Comment on above: Performed By: #### 2 89239 #### [facility],[address] [place] [address] 12978 Monocytes (Bld) [#/Vol] 1.00 x10EE3/UL Normal 0. 20 - 1.00 [facility] Comment on above: Performed By: #### 2 32510 #### [facility],[address] [place] [address] 39876 MONOS % 10.5 % High 0.0 - 10.0 [facility] Comment on above: Performed By: #### 2 97593 #### [facility],[address] [place] [address] 08873 Morphology Crispin (Bld) [Interp] N/A Normal [facility] Comment on above: Performed By: #### 2 34762 #### [facility],[address] [place] [address] 92993 Neutrophils (Bld) [#/Vol] 6.10 x10EE3/UL Normal 1.50 - 7.10 [facility] Comment on above: Performed By: #### 2 18375 #### [facility],[address] [place] [address] 99221 Neutrophils/100 WBC (Bld) 64.4 % Normal 46.0 - 76.0 [facility] Comment on above: Performed By: #### 2 67748 #### [facility],[address] [place] [address] 43584 Platelet mean volume (Bld) [Entitic vol] 7.4 fL Normal 6.4 - 10.5 [facility] Comment on above: Result Comment: AUTO MATED DIFFERENTIAL Performed By: #### 2 43285 #### [facility],[address] [place] [address] 62235 Platelets (Bld) [#/Vol] 260 x10EE3/UL Normal 150 - 450 [facility] Comment on above: Performed By: #### 2 59622 #### [facility],[address] [place] [address] 31228 RBC (Bld) [#/Vol] 4.38 x 10EE6/UL Low 4.50 - 6.00 [facility] Comment on above: Performed By: #### 2 57486 #### [facility],[address] [place] [address] 84193 WBC (Bld) [#/Vol] 9.4 x 10EE3/UL Normal 4.5 - 10.8 [facility] Comment on above: Performed By: #### 2 55171 #### [facility],[address] [place] [address] 14038 LITHIUMon 11-05-2019 [place] [Moles/Vol] 0.5 mmol/L Low 0.6 - 1.2 [facility] Comment on above: Performed By: #### 2 61148 #### [facility],[address] [place] [address] 15743 RENAL FUNCTION PANELon 11-05 Albumin [Mass/Vol] 3.5 g/dL Normal 3.4 - 4.8 [facility] Comment on above: Performed By: #### 2 07964 #### [facility],[address] [place] [address] 24048 B/C RATIO 9 ratio Normal 0 - 30 [facility] Comment on above: Performed By: #### 2 91626 #### [facility],[address] [place] [address] 48382 Calcium [Mass/Vol] 9.4 mg/dL Normal 8.6 - 10.2 [facility] Comment on above: Performed By: #### 2 66049 #### [facility],[address] [place] [address] 22788 Creatinine [Mass/Vol] 2.2 mg/dL High 0.7 - 1.3 [facility] Comment on above: Performed By: #### 2 83150 #### [facility],[address] [place] [address] 25516 Glucose [Mass/Vol] 105 mg/dL Normal 74 - 106 [facility] Comment on above: Performed By: #### 2 74373 #### [facility],[address] [place] [address] 03714 Phosphate [Mass/Vol] 4.3 mg/dL Normal 2.7 - 4.9 [facility] Comment on above: Performed By: #### 2 48853 #### [facility],[address] [place] [address] RENAL FUNCTION PANEL Normal [facility] Comment on above: Result Comment: JESSICA L FUNCTION PANEL Performed By: #### 2 24558 #### [facility],[address] [place] [address] 49308 Urea nitrogen [Mass/Vol] 20 mg/dL Normal 6 - 20 [facility] Comment on above: Performed By: #### 2 62874 #### [facility],[address] [place] [address] 81099 URINALYSISon 11-05-2019 Bilirubin [Mass/Vol] Negative Normal NORMAL: NEGATIVE [facility] Comment on above: Performed By: #### 2 20290 #### [facility],[address] [place], [place] [address] Blood Negative Normal NORMAL: NEGATIVE [facility] Comment on above: Performed By: #### 2 44285 #### [facility],[address] [place] [address] 25121 Clarity (U) clear Normal NORMAL: CLEAR [facility] Comment on above: Performed By: #### 2 16456 #### [facility],[address] [place] [address] 82167 Color (U) p.yel Normal NORMAL: YELLOW [facility] Comment on above: Performed By: #### 2 22875 #### [facility],[address] [place] [address] Glucose [Mass/Vol] NORM Normal NORMAL: NORMAL [facility] Comment on above: Performed By: #### 2 69354 #### [facility],[address] [place] [address] Ketone Negative Normal NORMAL: NEGATIVE [facility] Comment on above: Performed By: #### 2 39269 #### [facility],[address] [place] [address] Microscopic NOT INDICATED Normal [facility] Comment on above: Performed By: #### 2 30616 #### [facility],[address] [place] [address] Nitrite Ql (U) Negative Normal NORMAL: NEGATIVE [facility] Comment on above: Performed By: #### 2 46538 #### [facility],[address] [place] [address] pH (Bld) 6.5 Normal NORMAL: 5.0-8.0 [facility] Comment on above: Performed By: #### 2 49288 #### [facility],[address] [place] [address] Protein (U) [Mass/Vol] Negative Normal JENN L: NEGATIVE [facility] Comment on above: Performed By: #### 2 85970 #### [facility],[address] [place] [address] Sp [place] 1.010 Normal NORMAL: 1.010-1.03 0 [facility] Comment on above: Performed By: #### 2 62069 #### [facility],[address] [place] [address] Specimen type Nom (Spec) UNSPECIFIED Normal [facility] Comment on above: Performed By: #### 2 39964 #### [facility],[address] [place] [address] Urobilinog NORM Normal NORMAL: NORMAL [facility] Comment on above: Performed By: #### 2 55351 #### [facility],[address] [place] [address] 50861 WBC (Bld) [#/Vol] Negative Normal NORMAL: NEGATIVE [facility] Comment on above: Performed By: #### 2 35546 #### [facility],[address] [place] [address] URINE CREATININE AND PROTEIN RATIOon 11-05-2019 CREATININE UR 72.6 mg/dl Normal [facility] Comment on above: Performed By: #### 2 94439 #### [facility],[address] [place] [address] PC RATIO 0.07 mg/dL Normal 0.00 - 10.00 [facility] Comment on above: Performed By: #### 2 37617 #### [facility],[address] [place] [address] 74316 Protein (U) [Mass/Vol] mg/dL Normal 0.00 - 10.00 [facility] Comment on above: Performed By: #### 2 25659 #### [facility],[address] [place] [address] BMP with eGFRon 10-08-2019 Age - Reported 54 years Normal [facility] Comment on above: Performed By: #### 2 86599 #### [facility],[address] [place] [address] 07019 Anion gap [Moles/Vol] 12 mmol/L Normal 10 - 20 [facility] Comment on above: Performed By: #### 2 77027 #### [facility],[address] [place] [address] 94020 Calcium [Mass/Vol] 9.2 mg/dL Normal 8.6 - 10.2 [facility] Comment on above: Performed By: #### 2 11078 #### [facility],[address] [place] [address] 19643 Chloride [Moles/Vol] 107 mmol/L Normal 98 - 107 [facility] Comment on above: Performed By: #### 2 37478 #### [facility],[address] [place] [address] 29457 CO2 [Moles/Vol] 26.7 mmol/L Normal 21.0 - 31.0 [facility] Comment on above: Performed By: #### 2 28601 #### [facility],[address] [place] [address] 40926 Creatinine [Mass/Vol] 2.1 mg/dL High 0.7 - 1.3 [facility] Comment on above: Performed By: #### 2 32659 #### [facility],[address] [place] [address] 95270 GFR/1.73 sq M predicted among non-blacks MDRD (S/P/Bld) [Vol rate/Area] Normal [facility] Comment on above: Result Comment: BASI C METABOLIC PANEL Performed By: #### 2 28611 #### [facility],[address] [place] [address] 76313 GFR/1.73 sq M predicted among non-blacks MDRD (S/P/Bld) [Vol rate/Area] 40 ML/MINUTE Low 60 - 999 [facility] Comment on above: Result Comment: ACCO RDING TO THE NATIONAL KIDNEY DISEASE EDUCATION PROGRAM(NKDE), A NORMAL eGFR IS A VALUE GREATER THAN OR EQUAL TO 60 ML/MIN/1.73 SQ METERS. CHRONIC KIDNEY DISEASE: <60mL/MIN/1.73 SQ METERS KIDNEY FAILURE: <15mL/MIN/1.73 SQ METERS THIS TEST SHOULD ONLY BE USED FOR PATIENTS 18 YEARS OF AGE AND OLDER. Performed By: #### 2 38610 #### [facility],[address] [place] [address] 41006 GFR/1.73 sq M predicted among non-blacks MDRD (S/P/Bld) [Vol rate/Area] 33 ML/MINUTE Low 60 - 999 [facility] Comment on above: Performed By: #### 2 13023 #### [facility],[address] [place] [address] 32970 Glucose [Mass/Vol] 106 mg/dL Normal 74 - 106 [facility] Comment on above: Performed By: #### 2 74841 #### [facility],[address] [place] [address] 36925 Potassium [Moles/Vol] 3.6 mmol/L Normal 3.5 - 5.1 [facility] Comment on above: Performed By: #### 2 26420 #### [facility],[address] [place] [address] 66179 Sodium [Moles/Vol] 142 mmol/L Normal 136 - 145 [facility] Comment on above: Performed By: #### 2 29453 #### [address] [address] Urea nitrogen [Mass/Vol] 22 mg/dL High 6 - 20 [facility] Comment on above: Performed By: #### 2 31339 #### [facility],[address] [place] [address] 04430 CBC + DIFFon 10-08-2019 Basophils (Bld) [#/Vol] 0.10 x10EE3/UL Normal 0. 00 - 0.10 [facility] Comment on above: Performed By: #### 2 40381 #### [facility],[address] [place] [address] 84072 Basophils/100 WBC (Bld) 0.7 % Normal 0.0 - 2.0 [facility] Comment on above: Performed By: #### 2 42734 #### [address] [address] CBC + DIFF Normal [facility] Comment on above: Result Comment: CBC- COMPLETE BLOOD COUNT Performed By: #### 2 75872 #### [facility],[address] [place] [address] 52466 Eosinophils (Bld) [#/Vol] 0.50 x10EE3/UL Normal 0.00 - 0.50 [facility] Comment on above: Performed By: #### 2 46628 #### [facility],[address] [place] [address] 92707 Eosinophils/100 WBC (Bld) 5.1 % Normal 0.0 - 7.0 [facility] Comment on above: Performed By: #### 2 76782 #### [facility],[address] [place] [address] 93120 Erythrocyte distribution width (RBC) [Ratio] 12.8 % Normal 12.0 - 15.6 [facility] Comment on above: Performed By: #### 2 52305 #### [facility],[address] [place] [address] 37175 Hematocrit (Bld) [Volume fraction] 37.6 % Low 40.0 - 52.0 [facility] Comment on above: Performed By: #### 2 46160 #### [facility],[address] [place] [address] 56453 Hemoglobin (Bld) [Mass/Vol] 12.5 g/dL Low 13.0 - 17.5 [facility] Comment on above: Performed By: #### 2 04454 #### [facility],[address] [place] [address] 21238 Lymphocytes (Bld) [#/Vol] 1.90 x10EE3/UL Normal 0.80 - 2.80 [facility] Comment on above: Performed By: #### 2 24718 #### [facility],[address] [place] [address] 94000 Lymphocytes/100 WBC (Bld) 18.6 % Low 20.0 - 45.0 [facility] Comment on above: Performed By: #### 2 47142 #### [facility],[address] [place] [address] 17389 MANUAL DIFF N/A Normal [facility] Comment on above: Performed By: #### 2 24302 #### [facility],[address] [place] [address] 84052 MCH (RBC) [Entitic mass] 31 pg Normal 27 - 33 [facility] Comment on above: Performed By: #### 2 89956 #### [facility],[address] [place] [address] 90704 MCHC (RBC) [Mass/Vol] 33 X10 3 Normal 32 - 36 [facility] Comment on above: Performed By: #### 2 14463 #### [facility],[address] [place] [address] 97046 MCV (RBC) [Entitic vol] 93 fL Normal 81 - 98 [facility] Comment on above: Performed By: #### 2 32508 #### [address] [address] Monocytes (Bld) [#/Vol] 1.00 x10EE3/UL Normal 0. 20 - 1.00 [facility] Comment on above: Performed By: #### 2 95950 #### [place] [id number] MONOS % 9.4 % Normal 0.0 - 10.0 [facility] Comment on above: Performed By: #### 2 37909 #### [facility],[address] [place] [address] 81760 Morphology Cris[place] (Bld) [Interp] N/A Normal [facility] Comment on above: Performed By: #### 2 28207 #### [facility],[address] [place] [address] 75257 Neutrophils (Bld) [#/Vol] 6.90 x10EE3/UL Normal 1.50 - 7.10 [facility] Comment on above: Performed By: #### 2 24633 #### [facility],[address],[place] [address] Neutrophils/100 WBC (Bld) 66.2 % Normal 46.0 - 76.0 [facility] Comment on above: Performed By: #### 2 99219 #### [facility],[address] [place] [address] Platelet mean volume (Bld) [Entitic vol] 7.7 fL Normal 6.4 - 10.5 [facility] Comment on above: Result Comment: AUTO MATED DIFFERENTIAL Performed By: #### 2 96496 #### [place] [address] Platelets (Bld) [#/Vol] 250 x10EE3/UL Normal 150 - 450 [facility] Comment on above: Performed By: #### 2 12534 #### [place] [address] RBC (Bld) [#/Vol] 4.07 x 10EE6/UL Low 4.50 - 6.00 [facility] Comment on above: Performed By: #### 2 84664 #### [place] [id number] WBC (Bld) [#/Vol] 10.4 x 10EE3/UL Normal 4.5 - 10.8 [facility] Comment on above: Performed By: #### 2 20508 #### [facility],[address] [place], [place] [address] CULTURE URINEon 10-08-2019 CULTURE URINE CULTURE URINE _URINE CULTURE_ M I C R O B I O L O G Y R E P O R T FINAL ------- Antimicrobial Susceptibility and Organism Identification Report -------- Specimen Number : [id number] Requested : 10/08/19 Specimen Source : URINE Collected : 10/08/19 08:30 Ar[place]ondo of [place] : MAJORA SAL Received : 10/08/19 08:30 Requesting Physician : FLORECITA -- Patient/Specimen Tests and Comments Specimen Comments -------- -------- FINAL REPORT: NO GROWTH AT 48 HOURS -- Tech : Source : URINE ID # : [id number] FINAL Report Date : / / : Collected : 10/08/19 08:30 10/10/19.1115.BKO. 10/09/19.1011.BKO. 10/10/19.1115.BKO.COMPLETE Normal [facility] Comment on above: Performed By: #### 2 09193 #### [facility],[address] [place] [address] 59267 HEPATIC FUNCTION PANELon ALK PHOS 52 U/L Normal 38 - 126 [facility] Comment on above: Performed By: #### 2 49331 #### [facility],[address] [place] [address] 31478 ALT/SGPT 15 U/L Normal 10 - 40 [facility] Comment on above: Performed By: #### 2 99758 #### [facility],[address] [place] [address] 44766 AST/SGOT 9 U/L Low 13 - 39 [facility] Comment on above: Performed By: #### 2 91617 #### [facility],[address] [place] [address] 38427 Bilirubin [Mass/Vol] 0.3 mg/dL Normal 0.0 - 1.5 [facility] Comment on above: Performed By: #### 2 84553 #### [facility],[address] [place] [address] 21600 Bilirubin.direct [Mass/Vol] 0.1 mg/dL Normal 0.0 - 0.1 [facility] Comment on above: Performed By: #### 2 73160 #### [facility],[address] [place] [address] 05562 HEPATIC FUNCTION PANEL Normal [facility] Comment on above: Result Comment: HEPA TIC FUNCTION PROFILE Performed By: #### 2 32520 #### [facility],[address] [place] [address] 78182 Protein [Mass/Vol] 5.5 g/dL Low 6.4 - 8.3 [facility] Comment on above: Performed By: #### 2 79539 #### [facility],[address] [place] [address] 41479 LITHIUMon 10-08-2019 [place] [Moles/Vol] 0.6 mmol/L Normal 0.6 - 1.2 [facility] Comment on above: Performed By: #### 2 75766 #### [facility],[address] [place] [address] 02618 RENAL FUNCTION PANELon 10-08 Albumin [Mass/Vol] 3.5 g/dL Normal 3.4 - 4.8 [facility] Comment on above: Performed By: #### 2 76360 #### [facility],[address] [place] [address] 90782 B/C RATIO 10 ratio Normal 0 - 30 [facility] Comment on above: Performed By: #### 2 70913 #### [facility],[address] [place] [address] 45304 Calcium [Mass/Vol] 9.2 mg/dL Normal 8.6 - 10.2 [facility] Comment on above: Performed By: #### 2 43912 #### [facility],[address] [place] [address] 71881 Chloride [Moles/Vol] 107 mmol/L Normal 98 - 107 [facility] Comment on above: Performed By: #### 2 07879 #### [facility],[address] [place] [address] 91513 CO2 [Moles/Vol] 26.7 mmol/L Normal 21.0 - 31.0 [facility] Comment on above: Performed By: #### 2 04165 #### [facility],[address] [place] [address] 03732 Creatinine [Mass/Vol] 2.1 mg/dL High 0.7 - 1.3 [facility] Comment on above: Performed By: #### 2 97237 #### [facility],[address] [place] [address] 06336 Glucose [Mass/Vol] 106 mg/dL Normal 74 - 106 [facility] Comment on above: Performed By: #### 2 58633 #### [facility],[address] [place] [address] 73564 Phosphate [Mass/Vol] 4.7 mg/dL Normal 2.7 - 4.9 [facility] Comment on above: Performed By: #### 2 82137 #### [facility],[address] [place] [address] 72445 Potassium [Moles/Vol] 3.6 mmol/L Normal 3.5 - 5.1 [facility] Comment on above: Performed By: #### 2 46670 #### [facility],[address] [place] [address] RENAL FUNCTION PANEL Normal [facility] Comment on above: Result Comment: JESSICA L FUNCTION PANEL Performed By: #### 2 93857 #### [facility],[address] [place] [address] Sodium [Moles/Vol] 142 mmol/L Normal 136 - 145 [facility] Comment on above: Performed By: #### 2 77601 #### [facility],[address] [place], [place] [address] Urea nitrogen [Mass/Vol] 22 mg/dL High 6 - 20 [facility] Comment on above: Performed By: #### 2 00360 #### [facility],[address] [place], [place] [address] URINALYSISon 10-08-2019 Bilirubin [Mass/Vol] Negative Normal NORMAL: NEGATIVE [facility] Comment on above: Performed By: #### 2 27222 #### [facility],[address] [place] [address] 13866 Blood Negative Normal NORMAL: NEGATIVE [facility] Comment on above: Performed By: #### 2 07129 #### [facility],[address] [place] [address] 80511 Clarity (U) clear Normal NORMAL: CLEAR [facility] Comment on above: Performed By: #### 2 24471 #### [facility],[address] [place] [address] 20995 Color (U) p.yel Normal NORMAL: YELLOW [facility] Comment on above: Performed By: #### 2 10013 #### [facility],[address] [place] [address] 85070 Glucose [Mass/Vol] NORM Normal NORMAL: NORMAL [facility] Comment on above: Performed By: #### 2 33397 #### [facility],[address] [place] [address] 36892 Ketone Negative Normal NORMAL: NEGATIVE [facility] Comment on above: Performed By: #### 2 31169 #### [facility],[address] [place] [address] 59180 Microscopic NOT INDICATED Normal [facility] Comment on above: Performed By: #### 2 39740 #### [facility],[address] [place] [address] 82256 Nitrite Ql (U) Negative Normal NORMAL: NEGATIVE [facility] Comment on above: Performed By: #### 2 89213 #### [facility],[address] [place], [place] [address] pH (Bld) 6 Normal NORMAL: 5.0-8.0 [facility] Comment on above: Performed By: #### 2 14515 #### [facility],[address] [place] [address] 64464 Protein (U) [Mass/Vol] Negative Normal JENN L: NEGATIVE [facility] Comment on above: Performed By: #### 2 82607 #### [facility],[address] [place] [address] 20798 Sp [place] 1.015 Normal NORMAL: 1.010-1.03 0 [facility] Comment on above: Performed By: #### 2 10717 #### [facility],[address] [place] [address] 46573 Specimen type Nom (Spec) Clean catch Normal [facility] Comment on above: Performed By: #### 2 47559 #### [facility],[address] [place] [address] 91124 Urobilinog NORM Normal NORMAL: NORMAL [facility] Comment on above: Performed By: #### 2 89054 #### [facility],[address] [place] [address] 59756 WBC (Bld) [#/Vol] Negative Normal NORMAL: NEGATIVE [facility] Comment on above: Performed By: #### 2 07408 #### [facility],[address] [place] [address] 76591 CBC + DIFFon 09-10-2019 Basophils (Bld) [#/Vol] 0.10 x10EE3/UL Normal 0. 00 - 0.10 [facility] Comment on above: Performed By: #### 2 84552 #### [facility],[address] [place] [address] 53821 Basophils/100 WBC (Bld) 1.0 % Normal 0.0 - 2.0 [facility] Comment on above: Performed By: #### 2 53848 #### [facility],[address] [place] [address] 63728 CBC + DIFF Normal [facility] Comment on above: Result Comment: CBC- COMPLETE BLOOD COUNT Performed By: #### 2 04239 #### [facility],[address] [place] [address] 56890 Eosinophils (Bld) [#/Vol] 0.50 x10EE3/UL Normal 0.00 - 0.50 [facility] Comment on above: Performed By: #### 2 18082 #### [facility],[address] [place] [address] 20569 Eosinophils/100 WBC (Bld) 6.3 % Normal 0.0 - 7.0 [facility] Comment on above: Performed By: #### 2 16428 #### [facility],[address] [place] [address] 92076 Erythrocyte distribution width (RBC) [Ratio] 13.3 % Normal 12.0 - 15.6 [facility] Comment on above: Performed By: #### 2 07207 #### [facility],[address] [place] [address] 84203 Hematocrit (Bld) [Volume fraction] 36.9 % Low 40.0 - 52.0 [facility] Comment on above: Performed By: #### 2 55653 #### [facility],[address] [place] [address] 63900 Hemoglobin (Bld) [Mass/Vol] 12.5 g/dL Low 13.0 - 17.5 [facility] Comment on above: Performed By: #### 2 62614 #### [facility],[address] [place], [place] [address] Lymphocytes (Bld) [#/Vol] 2.20 x10EE3/UL Normal 0.80 - 2.80 [facility] Comment on above: Performed By: #### 2 47583 #### [facility],[address] [place], [place] [address] Lymphocytes/100 WBC (Bld) 25.0 % Normal 20.0 - 45.0 [facility] Comment on above: Performed By: #### 2 28308 #### [facility],[address] [place] [address] 30933 MANUAL DIFF N/A Normal [facility] Comment on above: Performed By: #### 2 98300 #### [facility],[address] [place] [address] 93671 MCH (RBC) [Entitic mass] 31 pg Normal 27 - 33 [facility] Comment on above: Performed By: #### 2 18676 #### [facility],[address] [place] [address] 47236 MCHC (RBC) [Mass/Vol] 34 X10 3 Normal 32 - 36 [facility] Comment on above: Performed By: #### 2 73749 #### [facility],[address] [place] [address] 45507 MCV (RBC) [Entitic vol] 93 fL Normal 81 - 98 [facility] Comment on above: Performed By: #### 2 96128 #### [facility],[address] [place] [address] 46476 Monocytes (Bld) [#/Vol] 0.90 x10EE3/UL Normal 0. 20 - 1.00 [facility] Comment on above: Performed By: #### 2 78557 #### [facility],[address] [place] [address] 91360 MONOS % 10.6 % High 0.0 - 10.0 [facility] Comment on above: Performed By: #### 2 23341 #### [facility],[address] [place] [address] 79593 Morphology Crispin (Bld) [Interp] N/A Normal [facility] Comment on above: Performed By: #### 2 22545 #### [facility],[address] [place] [address] 20265 Neutrophils (Bld) [#/Vol] 5.00 x10EE3/UL Normal 1.50 - 7.10 [facility] Comment on above: Performed By: #### 2 86194 #### [facility],[address] [place] [address] 82929 Neutrophils/100 WBC (Bld) 57.1 % Normal 46.0 - 76.0 [facility] Comment on above: Performed By: #### 2 40203 #### [facility],[address] [place] [address] 38405 Platelet mean volume (Bld) [Entitic vol] 7.6 fL Normal 6.4 - 10.5 [facility] Comment on above: Result Comment: AUTO MATED DIFFERENTIAL Performed By: #### 2 82672 #### [facility],[address] [place] [address] 24868 Platelets (Bld) [#/Vol] 236 x10EE3/UL Normal 150 - 450 [facility] Comment on above: Performed By: #### 2 26271 #### [facility],[address] [place] [address] RBC (Bld) [#/Vol] 3.99 x 10EE6/UL Low 4.50 - 6.00 [facility] Comment on above: Performed By: #### 2 04653 #### [facility],[address] [place] [address] 82331 WBC (Bld) [#/Vol] 8.7 x 10EE3/UL Normal 4.5 - 10.8 [facility] Comment on above: Performed By: #### 2 75238 #### [facility],[address] [place] [address] CULTURE URINEon 09-10-2019 CULTURE URINE CULTURE URINE _URINE CULTURE_ M I C R O B I O L O G Y R E P O R T FINAL ------- Antimicrobial Susceptibility and Organism Identification Report -------- Specimen Number : [id number] Requested : 09/10/19 Specimen Source : CLEAN CATCH URINE Collected : 09/10/19 04:30 Arredondo of [employer]olation : MEME HUANG Received : 09/10/19 04:30 Requesting Physician : FLORECITA -- Patient/Specimen Tests and Comments Specimen Comments -------- -------- FINAL REPORT: NO GROWTH AT 48 HOURS -- Tech : Source : CLEAN CATCH URINE ID # : [id number] FINAL Report Date : / / : Collected : 09/10/19 04:30 09/12/19.BKO. 09/11/190717.JLN. 09/12/19.BKO.COMPLETE 09/12/19.BKO.to [facility] via fax Normal [facility] Comment on above: Performed By: #### 2 35870 #### [facility],[address] [place] [address] 28346 LITHIUMon 09-10-2019 [place] [Moles/Vol] 0.6 mmol/L Normal 0.6 - 1.2 [facility] Comment on above: Performed By: #### 2 00328 #### [facility],[address] [place] [address] 99653 RENAL FUNCTION PANEL WITH eG FRon 09-10-2019 Age - Reported 54 years Normal [facility] Comment on above: Performed By: #### 2 61397 #### [facility],[address] [place] [address] 91556 Albumin [Mass/Vol] 3.4 g/dL Normal 3.4 - 4.8 [facility] Comment on above: Performed By: #### 2 77776 #### [facility],[address] [place] [address] 99459 B/C RATIO 11 ratio Normal 0 - 30 [facility] Comment on above: Performed By: #### 2 65529 #### [facility],[address] [place] [address] 94291 Calcium [Mass/Vol] 9.2 mg/dL Normal 8.6 - 10.2 [facility] Comment on above: Performed By: #### 2 10722 #### [facility],[address] [place] [address] 77769 Chloride [Moles/Vol] 107 mmol/L Normal 98 - 107 [facility] Comment on above: Performed By: #### 2 84171 #### [facility],[address] [place] [address] 14338 CO2 [Moles/Vol] 25.3 mmol/L Normal 21.0 - 31.0 [facility] Comment on above: Performed By: #### 2 76485 #### [facility],[address] [place] [address] 70739 Creatinine [Mass/Vol] 2.2 mg/dL High 0.7 - 1.3 [facility] Comment on above: Performed By: #### 2 83585 #### [facility],[address] [place] [address] 98849 GFR/1.73 sq M predicted among non-blacks MDRD (S/P/Bld) [Vol rate/Area] 31 ML/MINUTE Low 60 - 999 [facility] Comment on above: Performed By: #### 2 39910 #### [facility],[address] [place] [address] 76729 GFR/1.73 sq M predicted among non-blacks MDRD (S/P/Bld) [Vol rate/Area] 38 ML/MINUTE Low 60 - 999 [facility] Comment on above: Result Comment: ACCO RDING TO THE NATIONAL KIDNEY DISEASE EDUCATION PROGRAM(NKDE), A NORMAL eGFR IS A VALUE GREATER THAN OR EQUAL TO 60 ML/MIN/1.73 SQ METERS. CHRONIC KIDNEY DISEASE: <60mL/MIN/1.73 SQ METERS KIDNEY FAILURE: <15mL/MIN/1.73 SQ METERS THIS TEST SHOULD ONLY BE USED FOR PATIENTS 18 YEARS OF AGE AND OLDER. Performed By: #### 2 98857 #### [facility],[address] [place] [address] 00975 Glucose [Mass/Vol] 96 mg/dL Normal 74 - 106 [facility] Comment on above: Performed By: #### 2 36115 #### [facility],[address] [place] [address] 33105 Phosphate [Mass/Vol] 4.5 mg/dL Normal 2.7 - 4.9 [facility] Comment on above: Performed By: #### 2 97105 #### [facility],[address] [place] [address] 52662 Potassium [Moles/Vol] 3.5 mmol/L Normal 3.5 - 5.1 [facility] Comment on above: Performed By: #### 2 18967 #### [facility],[address] [place] [address] 36187 RENAL FUNCTION PANEL WITH eGFR Normal [facility] Comment on above: Result Comment: JESSICA L FUNCTION PANEL Performed By: #### 2 31094 #### [facility],[address] [place] [address] 66461 Sodium [Moles/Vol] 141 mmol/L Normal 136 - 145 [facility] Comment on above: Performed By: #### 2 24355 #### [facility],[address] [place] [address] 55367 Urea nitrogen [Mass/Vol] 24 mg/dL High 6 - 20 [facility] Comment on above: Performed By: #### 2 63438 #### [facility],[address] [place] [address] 05741 URINALYSISon 09-10-2019 Bilirubin [Mass/Vol] Negative Normal NORMAL: NEGATIVE [facility] Comment on above: Performed By: #### 2 65251 #### [facility],[address] [place] [address] 08810 Blood Negative Normal NORMAL: NEGATIVE [facility] Comment on above: Performed By: #### 2 16678 #### [facility],[address] [place] [address] 23200 Clarity (U) clear Normal NORMAL: CLEAR [facility] Comment on above: Performed By: #### 2 78257 #### [facility],[address] [place] [address] 58503 Color (U) p.yel Normal NORMAL: YELLOW [facility] Comment on above: Performed By: #### 2 59500 #### [facility],[address] [place] [address] 00467 Glucose [Mass/Vol] NORM Normal NORMAL: NORMAL [facility] Comment on above: Performed By: #### 2 47829 #### [facility],[address] [place] [address] 62420 Ketone Negative Normal NORMAL: NEGATIVE [facility] Comment on above: Performed By: #### 2 33126 #### [facility],[address] [place] [address] 14544 Microscopic NOT INDICATED Normal [facility] Comment on above: Performed By: #### 2 17911 #### [facility],[address] [place] [address] 81960 Nitrite Ql (U) Negative Normal NORMAL: NEGATIVE [facility] Comment on above: Performed By: #### 2 33311 #### [facility],[address] [place] [address] 16958 pH (Bld) 6.5 Normal NORMAL: 5.0-8.0 [facility] Comment on above: Performed By: #### 2 82911 #### [facility],[address] [place] [address] Protein (U) [Mass/Vol] Negative Normal JENN L: NEGATIVE [facility] Comment on above: Performed By: #### 2 36368 #### [facility],[address] [place] [address] Sp [place] 1.010 Normal NORMAL: 1.010-1.03 0 [facility] Comment on above: Performed By: #### 2 27345 #### [facility],[address] [place] [address] Specimen type Nom (Spec) Clean catch Normal [facility] Comment on above: Performed By: #### 2 17479 #### [facility],[address] [place] [address] Urobilinog NORM Normal NORMAL: NORMAL [facility] Comment on above: Performed By: #### 2 73920 #### [facility],[address] [place] [address] WBC (Bld) [#/Vol] Negative Normal NORMAL: NEGATIVE [facility] Comment on above: Performed By: #### 2 56464 #### [facility],[address] [place] [address] URINE CREATININE AND PROTEIN RATIOon 09-10-2019 CREATININE UR 58.3 mg/dl Normal [facility] Comment on above: Performed By: #### 2 51815 #### [facility],[address] [place] [address] PC RATIO 0.09 mg/dL Normal 0.00 - 10.00 [facility] Comment on above: Performed By: #### 2 93318 #### [facility],[address] [place], [place] [address] Protein (U) [Mass/Vol] mg/dL Normal 0.00 - 10.00 [facility] Comment on above: Performed By: #### 2 26738 #### [facility],[address] [place] [address] 93765 BMP with eGFRon 08-31-2019 Age - Reported 54 years Normal [facility] Comment on above: Performed By: #### 2 47585 #### [facility],[address] [place] [address] 95941 Anion gap [Moles/Vol] 12 mmol/L Normal 10 - 20 [facility] Comment on above: Performed By: #### 2 15856 #### [facility],[address] [place] [address] 33499 Calcium [Mass/Vol] 9.4 mg/dL Normal 8.6 - 10.2 [facility] Comment on above: Performed By: #### 2 84986 #### [facility],[address] [place] [address] 67303 Chloride [Moles/Vol] 104 mmol/L Normal 98 - 107 [facility] Comment on above: Performed By: #### 2 44942 #### [facility],[address] [place] [address] 61474 CO2 [Moles/Vol] 26.9 mmol/L Normal 21.0 - 31.0 [facility] Comment on above: Performed By: #### 2 50423 #### [facility],[address] [place] [address] 88859 Creatinine [Mass/Vol] 2.4 mg/dL High 0.7 - 1.3 [facility] Comment on above: Performed By: #### 2 92746 #### [facility],[address] [place] [address] 80276 GFR/1.73 sq M predicted among non-blacks MDRD (S/P/Bld) [Vol rate/Area] Normal [facility] Comment on above: Result Comment: BASI C METABOLIC PANEL Performed By: #### 2 04460 #### [facility],[address] [place] [address] 46390 GFR/1.73 sq M predicted among non-blacks MDRD (S/P/Bld) [Vol rate/Area] 28 ML/MINUTE Low 60 - 999 [facility] Comment on above: Performed By: #### 2 03818 #### [facility],[address] [place] [address] 85031 GFR/1.73 sq M predicted among non-blacks MDRD (S/P/Bld) [Vol rate/Area] 34 ML/MINUTE Low 60 - 999 [facility] Comment on above: Result Comment: ACCO RDING TO THE NATIONAL KIDNEY DISEASE EDUCATION PROGRAM(NKDE), A NORMAL eGFR IS A VALUE GREATER THAN OR EQUAL TO 60 ML/MIN/1.73 SQ METERS. CHRONIC KIDNEY DISEASE: <60mL/MIN/1.73 SQ METERS KIDNEY FAILURE: <15mL/MIN/1.73 SQ METERS THIS TEST SHOULD ONLY BE USED FOR PATIENTS 18 YEARS OF AGE AND OLDER. Performed By: #### 2 23418 #### [facility],[address] [place] [address] 09183 Glucose [Mass/Vol] 106 mg/dL Normal 74 - 106 [facility] Comment on above: Performed By: #### 2 73599 #### [facility],[address] [place] [address] 26677 Potassium [Moles/Vol] 3.5 mmol/L Normal 3.5 - 5.1 [facility] Comment on above: Performed By: #### 2 08773 #### [facility],[address] [place] [address] 23497 Sodium [Moles/Vol] 139 mmol/L Normal 136 - 145 [facility] Comment on above: Performed By: #### 2 73595 #### [facility],[address] [place] [address] 22047 Urea nitrogen [Mass/Vol] 25 mg/dL High 6 - 20 [facility] Comment on above: Performed By: #### 2 67301 #### [facility],[address] [place], [place] [address] HGB A1C [CCL]on 08-26-2019 HbA1c (Bld) [Mass fraction] 117 mg/dL Normal [facility] Comment on above: Result Comment: eAG: (Estimated average glucose) is a calculated value from HgbA1c and is pharmaceutical service representative of the average blood glucose level in the last 2-3 month period. [facility] [address] [place] [address] Peyton Lang M.D. [id number] Performed By: #### 2 02498 #### [facility],[address] [place], [place] [address] HbA1c (Bld) [Mass fraction] 5.7 % High 4.3-5.6 [facility] Comment on above: Result Comment: Amer [place] Diabetes Association guidelines indicate that patients with HgbA1c in the range 5.7-6.4% are at increased risk for development of diabetes, and intervention by lifestyle modification may be beneficial. HgbA1c greater or equal to 6.5% is considered diagnostic of diabetes. Performed By: #### 2 54459 #### [facility],[address] [place] [address] 93664 Hemoglobin A1con 08-26-2019 HbA1c (Bld) [Mass fraction] 5.7 % High 4.3-5.6 [facility] Comment on above: Performed By: #### H BA1C #### [facility] Routine Lab [address] [place] [address] HbA1c (Bld) [Mass fraction] 117 mg/dL Normal [facility] Comment on above: Performed By: #### H BA1C #### [facility] [address] [place] [address] RENAL FUNCTION PANELon 08-14 Albumin [Mass/Vol] 3.2 g/dL Low 3.4 - 4.8 [facility] Comment on above: Performed By: #### 2 36004 #### [facility],[address] [place] [address] 74890 B/C RATIO 13 ratio Normal 0 - 30 [facility] Comment on above: Performed By: #### 2 80253 #### [facility],[address] [place] [address] 46240 Calcium [Mass/Vol] 8.8 mg/dL Normal 8.6 - 10.2 [facility] Comment on above: Performed By: #### 2 24158 #### [facility],[address] [place] [address] 00173 Chloride [Moles/Vol] 105 mmol/L Normal 98 - 107 [facility] Comment on above: Performed By: #### 2 79461 #### [facility],[address] [place] [address] 77578 CO2 [Moles/Vol] 29.8 mmol/L Normal 21.0 - 31.0 [facility] Comment on above: Performed By: #### 2 77947 #### [facility],[address] [place] [address] 78971 Creatinine [Mass/Vol] 2.0 mg/dL High 0.7 - 1.3 [facility] Comment on above: Performed By: #### 2 23881 #### [facility],[address] [place] [address] 20824 Glucose [Mass/Vol] 78 mg/dL Normal 74 - 106 [facility] Comment on above: Performed By: #### 2 73277 #### [facility],[address] [place] [address] 93371 Phosphate [Mass/Vol] 4.8 mg/dL Normal 2.7 - 4.9 [facility] Comment on above: Performed By: #### 2 28209 #### [facility],[address] [place] [address] 83663 Potassium [Moles/Vol] 3.9 mmol/L Normal 3.5 - 5.1 [facility] Comment on above: Performed By: #### 2 69418 #### [facility],[address] [place] [address] RENAL FUNCTION PANEL Normal [facility] Comment on above: Result Comment: JESSICA L FUNCTION PANEL Performed By: #### 2 86029 #### [facility],[address] [place] [address] Sodium [Moles/Vol] 141 mmol/L Normal 136 - 145 [facility] Comment on above: Performed By: #### 2 36619 #### [facility],[address] [place] [address] Urea nitrogen [Mass/Vol] 25 mg/dL High 6 - 20 [facility] Comment on above: Performed By: #### 2 53220 #### [facility],[address] [place] [address] CBC (NO DIFF)on 08-06-2019 CBC (NO DIFF) Normal [facility] Comment on above: Result Comment: CBC( WITHOUT DIFFERENTIAL) Performed By: #### 2 02104 #### [facility],[address] [place], [place] [address] Erythrocyte distribution width (RBC) [Ratio] 13.2 % Normal 12.0 - 15.6 [facility] Comment on above: Performed By: #### 2 73592 #### [facility],[address] [place], [place] [address] Hematocrit (Bld) [Volume fraction] 37.7 % Low 40.0 - 52.0 [facility] Comment on above: Performed By: #### 2 46252 #### [facility],[address] [place], [place] [address] Hemoglobin (Bld) [Mass/Vol] 12.9 g/dL Low 13.0 - 17.5 [facility] Comment on above: Performed By: #### 2 60303 #### [facility],[address] [place] [address] 63340 MCH (RBC) [Entitic mass] 32 pg Normal 27 - 33 [facility] Comment on above: Performed By: #### 2 26850 #### [facility],[address] [place] [address] 31712 MCHC (RBC) [Mass/Vol] 34 X10 3 Normal 32 - 36 [facility] Comment on above: Performed By: #### 2 08346 #### [facility],[address] [place] [address] 66416 MCV (RBC) [Entitic vol] 94 fL Normal 81 - 98 [facility] Comment on above: Performed By: #### 2 54217 #### [facility],[address] [place] [address] 06456 Platelet mean volume (Bld) [Entitic vol] 7.3 fL Normal 6.4 - 10.5 [facility] Comment on above: Performed By: #### 2 01676 #### [facility],[address] [place] [address] 15419 Platelets (Bld) [#/Vol] 166 x10EE3/UL Normal 150 - 450 [facility] Comment on above: Performed By: #### 2 47015 #### [facility],[address] [place] [address] 18556 RBC (Bld) [#/Vol] 4.00 x 10EE6/UL Low 4.50 - 6.00 [facility] Comment on above: Performed By: #### 2 74175 #### [facility],[address] [place] [address] 44257 WBC (Bld) [#/Vol] 8.7 x 10EE3/UL Normal 4.5 - 10.8 [facility] Comment on above: Performed By: #### 2 51656 #### [facility],[address] [place] [address] 38125 CULTURE URINEon 08-06-2019 CULTURE URINE CULTURE URINE _URINE CULTURE_ M I C R O B I O L O G Y R E P O R T FINAL ------- Antimicrobial Susceptibility and Organism Identification Report -------- Specimen Number : [id number] Requested : 08/06/19 Specimen Source : CLEAN CATCH URINE Collected : 08/06/19 03:10 [place] of [place] : MEME HUANG Received : 08/06/19 03:10 Requesting Physician : FLORECITA -- Patient/Specimen Tests and Comments Specimen Comments -------- -------- FINAL REPORT: NO GROWTH AT 48 HOURS -- Tech : Source : CLEAN CATCH URINE ID # : [id number] FINAL Report Date : / / : Collected : 08/06/19 03:10 08/08/19.1104.BKO. 08/07/19.0711.JLN. 08/08/19.1105.BKO.COMPLETE Normal [facility] Comment on above: Performed By: #### 2 44808 #### [facility],[address] [place] [address] LITHIUMon 08-06-2019 [place] [Moles/Vol] 0.6 mmol/L Normal 0.6 - 1.2 [facility] Comment on above: Performed By: #### 2 71334 #### [facility],[address] [place] [address] MR MRI BRAIN W/O CONTRASTon 08-06-2019 MR MRI BRAIN W/O CONTRAST [place] [address] Patient: REGGIE LEÓN Phone#: : 1965 Age: 54 Gender: M Pt. Type: Out Account: [id number] Location: Ordering: HODA BERNABE Exam Date: 08/06/2019/8:56 Family Phys: Charge Code: [id number] Physician: [place] Order #: [id number] DLP Dose#: PROCEDURE: MRI BRAIN WITHOUT CONTRAST [...] Momin MD on 08/06/2019 at 9:51 Normal [facility] RENAL FUNCTION PANELon 08-06 Albumin [Mass/Vol] 3.3 g/dL Low 3.4 - 4.8 [facility] Comment on above: Performed By: #### 2 42083 #### [facility],[address] [place], [place] [address] B/C RATIO 11 ratio Normal 0 - 30 [facility] Comment on above: Performed By: #### 2 19210 #### [facility],[address] [place] [address] 18359 Calcium [Mass/Vol] 8.9 mg/dL Normal 8.6 - 10.2 [facility] Comment on above: Performed By: #### 2 69695 #### [facility],[address] [place] [address] 10852 Chloride [Moles/Vol] 107 mmol/L Normal 98 - 107 [facility] Comment on above: Performed By: #### 2 32558 #### [facility],[address] [place] [address] 73661 CO2 [Moles/Vol] 26.8 mmol/L Normal 21.0 - 31.0 [facility] Comment on above: Performed By: #### 2 11280 #### [facility],[address] [place] [address] 85035 Creatinine [Mass/Vol] 2.2 mg/dL High 0.7 - 1.3 [facility] Comment on above: Performed By: #### 2 01091 #### [facility],[address] [place] [address] 12088 Glucose [Mass/Vol] 84 mg/dL Normal 74 - 106 [facility] Comment on above: Performed By: #### 2 84905 #### [facility],[address] [place] [address] 32820 Phosphate [Mass/Vol] 3.9 mg/dL Normal 2.7 - 4.9 [facility] Comment on above: Performed By: #### 2 54456 #### [facility],[address] [place] [address] 31431 Potassium [Moles/Vol] 4.1 mmol/L Normal 3.5 - 5.1 [facility] Comment on above: Performed By: #### 2 82451 #### [facility],[address] [place] [address] 18505 RENAL FUNCTION PANEL Normal [facility] Comment on above: Result Comment: JESSICA L FUNCTION PANEL Performed By: #### 2 12633 #### [facility],[address] [place] [address] 14419 Sodium [Moles/Vol] 141 mmol/L Normal 136 - 145 [facility] Comment on above: Performed By: #### 2 11093 #### [facility],[address] [place] [address] 73442 Urea nitrogen [Mass/Vol] 25 mg/dL High 6 - 20 [facility] Comment on above: Performed By: #### 2 49920 #### [facility],[address] [place] [address] 38071 URINALYSISon 08-06-2019 Bilirubin [Mass/Vol] Negative Normal NORMAL: NEGATIVE [facility] Comment on above: Performed By: #### 2 81997 #### [facility],[address] [place] [address] 82696 Blood Negative Normal NORMAL: NEGATIVE [facility] Comment on above: Performed By: #### 2 86508 #### [facility],[address] [place] [address] 72838 Clarity (U) clear Normal NORMAL: CLEAR [facility] Comment on above: Performed By: #### 2 26014 #### [facility],[address] [place] [address] 19477 Color (U) p.yel Normal NORMAL: YELLOW [facility] Comment on above: Performed By: #### 2 00503 #### [facility],[address] [place] [address] 62541 Glucose [Mass/Vol] NORM Normal NORMAL: NORMAL [facility] Comment on above: Performed By: #### 2 97294 #### [facility],[address] [place] [address] 51684 Ketone Negative Normal NORMAL: NEGATIVE [facility] Comment on above: Performed By: #### 2 30084 #### [facility],[address] [place] [address] 26866 Microscopic NOT Normal [facility] Comment on above: Performed By: #### 2 45923 #### [facility],[address] [place] [address] 39943 Nitrite Ql (U) Negative Normal NORMAL: NEGATIVE [facility] Comment on above: Performed By: #### 2 41257 #### [facility],[address] [place] [address] 96702 pH (Bld) 8 Normal NORMAL: 5.0-8.0 [facility] Comment on above: Performed By: #### 2 93293 #### [facility],[address] [place] [address] 49832 Protein (U) [Mass/Vol] Negative Normal JENN L: NEGATIVE [facility] Comment on above: Performed By: #### 2 18493 #### [facility],[address] [place] [address] 85456 Sp [place] 1.010 Normal NORMAL: 1.010-1.03 0 [facility] Comment on above: Performed By: #### 2 49543 #### [facility],[address] [place] [address] 39868 Specimen type Nom (Spec) Clean catch Normal [facility] Comment on above: Performed By: #### 2 91530 #### [facility],[address] [place] [address] 65906 Urobilinog NORM Normal NORMAL: NORMAL [facility] Comment on above: Performed By: #### 2 03103 #### [facility],[address] [place] [address] 96897 WBC (Bld) [#/Vol] Negative Normal NORMAL: NEGATIVE [facility] Comment on above: Performed By: #### 2 [id number] #### [facility],[address] [place] [address]673 URINE CREATININE AND PROTEIN RATIOon 08-06-2019 CREATININE UR 35.5 mg/dl Normal [facility] Comment on above: Performed By: #### 2 [id number] #### [facility],[address] [place] [address] 53863 PC RATIO 0.11 mg/dL Normal 0.00 - 10.00 [facility] Comment on above: Performed By: #### 2 [id number] #### [facility],[address] [place] [address] 06941 Protein (U) [Mass/Vol] mg/dL Normal 0.00 - 10.00 [facility] Comment on above: Performed By: #### 2 [id number] #### [facility],[address] [place] [address] Ammoniaon 03-19-2019 Ammonia mass conc (P) 34 umol/L Normal 16-60 [facility] Comment on above: Performed By: #### L ITH #### [facility] [address] [place] [id number] Basic Metabolic Panelon 05 Anion gap molar conc 13 mmol/L Normal 9-15 [facility] Comment on above: Result Comment: Effe ctive: 12/21/2018 New reference range for this analyte has been established. Performed By: #### L ITH #### [facility] [address] [place] [address] Calcium mass conc 8.8 mg/dL Normal 8.5-9.9 [facility] Comment on above: Result Comment: Effe ctive: 12/21/2018 New reference range for this analyte has been established. Performed By: #### L ITH #### [facility] [address] [place] [address] Chloride molar conc 106 mmol/L Normal 95-107 [facility] Comment on above: Result Comment: Effe ctive: 12/21/2018 New reference range for this analyte has been established. Performed By: #### L ITH #### [facility] [address] [place] [address] CO2 molar conc 22 mmol/L Normal 20-31 [facility] Comment on above: Result Comment: Effe ctive: 12/21/2018 New reference range for this analyte has been established. Performed By: #### L ITH #### [facility] [address] [place] [address] Creatinine mass conc 1.78 mg/dL Critically high 0.70-1.20 [facility] Comment on above: Performed By: #### L ITH #### [facility] [address] [place] [address] GFR/1.73 sq M predicted among blacks MDRD vol rate/area (S/P/Bld) 48.1 mL/min/{1.73_m2} Low >60 [facility] Comment on above: Result Comment: >60 mL/min/1.73m2 EGFR, calc. for ages 18 and older using the MDRD formula (not corrected for weight), is valid for stable renal function. Performed By: #### L ITH #### [facility] [address] [place] [address] GFR/1.73 sq M.predicted MDRD vol rate/area 39.8 mL/min/{1.73_m2} Low >60 [facility] Comment on above: Result Comment: >60 mL/min/1.73m2 EGFR, calc. for ages 18 and older using the MDRD formula (not corrected for weight), is valid for stable renal function. Performed By: #### L ITH #### [facility] [address] [place] [address] Glucose mass conc 84 mg/dL Normal 70-99 [facility] Comment on above: Result Comment: Effe ctive: 12/21/2018 New reference range for this analyte has been established. Performed By: #### L ITH #### [facility] [address] [place] [address] Potassium molar conc 4.4 mmol/L Normal 3.4-4.9 [facility] Comment on above: Result Comment: Effe ctive: 12/21/2018 New reference range for this analyte has been established. Performed By: #### L ITH #### [facility] [address] [place] [address] Sodium molar conc 141 mmol/L Normal 135-144 [facility] Comment on above: Result Comment: Effe ctive: 12/21/2018 New reference range for this analyte has been established. Performed By: #### L ITH #### [facility] [address] [place] [address] Urea nitrogen mass conc 25 mg/dL Critically high 6-20 [facility] Comment on above: Performed By: #### L ITH #### [facility] [address] [place] [address] Valproic Acid /Depakene Leve rahul 03-19-2019 Protein mass conc 62.5 ug/mL Normal 50.0-100.0 [facility] Comment on above: Performed By: #### L ITH #### [facility] [address] [place] [address] Basic Metabolic Panelon 05-0 Anion gap molar conc 14 mmol/L Normal 9-15 [facility] Comment on above: Result Comment: Effe ctive: 12/21/2018 New reference range for this analyte has been established. Performed By: #### L ITH #### [facility] [address] [place] [address] Calcium mass conc 9.1 mg/dL Normal 8.5-9.9 [facility] Comment on above: Result Comment: Effe ctive: 12/21/2018 New reference range for this analyte has been established. Performed By: #### L ITH #### [facility] [address] [place] [address] Chloride molar conc 107 mmol/L Normal 95-107 [facility] Comment on above: Result Comment: Effe ctive: 12/21/2018 New reference range for this analyte has been established. Performed By: #### L ITH #### [facility] [address] [place] [address] CO2 molar conc 22 mmol/L Normal 20-31 [facility] Comment on above: Result Comment: Effe ctive: 12/21/2018 New reference range for this analyte has been established. Performed By: #### L ITH #### [facility] [address] [place] [address] Creatinine mass conc 2.32 mg/dL Critically high 0.70-1.20 [facility] Comment on above: Performed By: #### L ITH #### [facility] [address] [place] [address] GFR/1.73 sq M predicted among blacks MDRD vol rate/area (S/P/Bld) 35.4 mL/min/{1.73_m2} Low >60 [facility] Comment on above: Result Comment: >60 mL/min/1.73m2 EGFR, calc. for ages 18 and older using the MDRD formula (not corrected for weight), is valid for stable renal function. Performed By: #### L ITH #### [facility] [address] [place] [address] GFR/1.73 sq M.predicted MDRD vol rate/area 29.3 mL/min/{1.73_m2} Low >60 [facility] Comment on above: Result Comment: >60 mL/min/1.73m2 EGFR, calc. for ages 18 and older using the MDRD formula (not corrected for weight), is valid for stable renal function. Performed By: #### L ITH #### [facility] [address] [place] [address] Glucose mass conc 97 mg/dL Normal 70-99 [facility] Comment on above: Result Comment: Effe ctive: 12/21/2018 New reference range for this analyte has been established. Performed By: #### L ITH #### [facility] [address] [place] [address] Potassium molar conc 4.5 mmol/L Normal 3.4-4.9 [facility] Comment on above: Result Comment: Effe ctive: 12/21/2018 New reference range for this analyte has been established. Performed By: #### L ITH #### [facility] [address] [place] [address] Sodium molar conc 143 mmol/L Normal 135-144 [facility] Comment on above: Result Comment: Effe ctive: 12/21/2018 New reference range for this analyte has been established. Performed By: #### L ITH #### [facility] [address] [place] [address] Urea nitrogen mass conc 29 mg/dL Critically high 6-20 [facility] Comment on above: Performed By: #### L ITH #### [facility] [address] [place] [address] Basic Metabolic Panelon 05-0 Anion gap molar conc 10 mmol/L Normal 9-15 [facility] Comment on above: Result Comment: Effe ctive: 12/21/2018 New reference range for this analyte has been established. Performed By: #### L ITH #### [facility] [address] [place] [address] Calcium mass conc 8.7 mg/dL Normal 8.5-9.9 [facility] Comment on above: Result Comment: Effe ctive: 12/21/2018 New reference range for this analyte has been established. Performed By: #### L ITH #### [facility] [address] [place] [address] Chloride molar conc 109 mmol/L Critically high 95-107 [facility] Comment on above: Result Comment: Effe ctive: 12/21/2018 New reference range for this analyte has been established. Performed By: #### L ITH #### [facility] [address] [place] [address] CO2 molar conc 24 mmol/L Normal 20-31 [facility] Comment on above: Result Comment: Effe ctive: 12/21/2018 New reference range for this analyte has been established. Performed By: #### L ITH #### [facility] [address] [place] [address] Creatinine mass conc 1.77 mg/dL Critically high 0.70-1.20 [facility] Comment on above: Performed By: #### L ITH #### [facility] [address] [place] [address] GFR/1.73 sq M predicted among blacks MDRD vol rate/area (S/P/Bld) 48.4 mL/min/{1.73_m2} Low >60 [facility] Comment on above: Result Comment: >60 mL/min/1.73m2 EGFR, calc. for ages 18 and older using the MDRD formula (not corrected for weight), is valid for stable renal function. Performed By: #### L ITH #### [facility] [address] [place] [address] GFR/1.73 sq M.predicted MDRD vol rate/area 40.0 mL/min/{1.73_m2} Low >60 [facility] Comment on above: Result Comment: >60 mL/min/1.73m2 EGFR, calc. for ages 18 and older using the MDRD formula (not corrected for weight), is valid for stable renal function. Performed By: #### L ITH #### [facility] [address] [place] [address] Glucose mass conc 95 mg/dL Normal 70-99 [facility] Comment on above: Result Comment: Effe ctive: 12/21/2018 New reference range for this analyte has been established. Performed By: #### L ITH #### [facility] [address] [place] [address] Potassium molar conc 4.8 mmol/L Normal 3.4-4.9 [facility] Comment on above: Result Comment: Effe ctive: 12/21/2018 New reference range for this analyte has been established. Performed By: #### L ITH #### [facility] [address] [place] [address] Sodium molar conc 143 mmol/L Normal 135-144 [facility] Comment on above: Result Comment: Effe ctive: 12/21/2018 New reference range for this analyte has been established. Performed By: #### L ITH #### [facility] [address] [place] [address] Urea nitrogen mass conc 25 mg/dL Critically high 6-20 [facility] Comment on above: Performed By: #### L ITH #### [facility] [address] [place] [address] Ammoniaon 03-12-2019 Ammonia mass conc (P) 20 umol/L Normal 16-60 [facility] Comment on above: Performed By: #### N H3 #### [facility] [address] [place] [address] Basic Metabolic Panelon 04- Anion gap molar conc 14 mmol/L Normal 9-15 [facility] Comment on above: Result Comment: Effe ctive: 12/21/2018 New reference range for this analyte has been established. Performed By: #### L ITH #### [facility] [address] [place] [address] Calcium mass conc 9.1 mg/dL Normal 8.5-9.9 [facility] Comment on above: Result Comment: Effe ctive: 12/21/2018 New reference range for this analyte has been established. Performed By: #### L ITH #### [facility] [address] [place] [address] Chloride molar conc 109 mmol/L Critically high 95-107 [facility] Comment on above: Result Comment: Effe ctive: 12/21/2018 New reference range for this analyte has been established. Performed By: #### L ITH #### [facility] [address] [place] [address] CO2 molar conc 24 mmol/L Normal 20-31 [facility] Comment on above: Result Comment: Effe ctive: 12/21/2018 New reference range for this analyte has been established. Performed By: #### L ITH #### [facility] [address] [place] [address] Creatinine mass conc 1.94 mg/dL Critically high 0.70-1.20 [facility] Comment on above: Performed By: #### L ITH #### [facility] [address] [place] [address] GFR/1.73 sq M predicted among blacks MDRD vol rate/area (S/P/Bld) 43.6 mL/min/{1.73_m2} Low >60 [facility] Comment on above: Result Comment: >60 mL/min/1.73m2 EGFR, calc. for ages 18 and older using the MDRD formula (not corrected for weight), is valid for stable renal function. Performed By: #### L ITH #### [facility] [address] [place] [address] GFR/1.73 sq M.predicted MDRD vol rate/area 36.0 mL/min/{1.73_m2} Low >60 [facility] Comment on above: Result Comment: >60 mL/min/1.73m2 EGFR, calc. for ages 18 and older using the MDRD formula (not corrected for weight), is valid for stable renal function. Performed By: #### L ITH #### [facility] [address] [place] [address] Glucose mass conc 90 mg/dL Normal 70-99 [facility] Comment on above: Result Comment: Effe ctive: 12/21/2018 New reference range for this analyte has been established. Performed By: #### L ITH #### [facility] [address] [place] [address] Potassium molar conc 4.5 mmol/L Normal 3.4-4.9 [facility] Comment on above: Result Comment: Effe ctive: 12/21/2018 New reference range for this analyte has been established. Performed By: #### L ITH #### [facility] [address] [place] [address] Sodium molar conc 147 mmol/L Critically high 135-144 [facility] Comment on above: Result Comment: Effe ctive: 12/21/2018 New reference range for this analyte has been established. Performed By: #### L ITH #### [facility] [address] [place] [address] Urea nitrogen mass conc 27 mg/dL Critically high 6-20 [facility] Comment on above: Performed By: #### L ITH #### [facility] [address] [place] [address] [place] Levelon 03-12-2019 [place] molar conc 0.8 mmol/L Normal 0.6-1.2 [facility] Comment on above: Performed By: #### L ITH #### [facility] [address] [place] [address] Valproic Acid /Depakene Leve rahul 03-12-2019 Protein mass conc 70.6 ug/mL Normal 50.0-100.0 [facility] Comment on above: Performed By: #### L ITH #### [facility] [address] [place] [address] Basic Metabolic Panelon 02-13 Anion gap molar conc 13 mmol/L Normal 9-15 [facility] Comment on above: Result Comment: Effe ctive: 12/21/2018 New reference range for this analyte has been established. Performed By: #### B MP #### [facility] [address] [place] [address] Calcium mass conc 8.9 mg/dL Normal 8.5-9.9 [facility] Comment on above: Result Comment: Effe ctive: 12/21/2018 New reference range for this analyte has been established. Performed By: #### B MP #### [facility] [address] [place] [address] Chloride molar conc 108 mmol/L Critically high 95-107 [facility] Comment on above: Result Comment: Effe ctive: 12/21/2018 New reference range for this analyte has been established. Performed By: #### B MP #### [facility] [address] [place] [address] CO2 molar conc 23 mmol/L Normal 20-31 [facility] Comment on above: Result Comment: Effe ctive: 12/21/2018 New reference range for this analyte has been established. Performed By: #### B MP #### [facility] [address] [place] [address] Creatinine mass conc 1.82 mg/dL Critically high 0.70-1.20 [facility] Comment on above: Performed By: #### B MP #### [facility] [address] [place] [address] GFR/1.73 sq M predicted among blacks MDRD vol rate/area (S/P/Bld) 46.9 mL/min/{1.73_m2} Low >60 [facility] Comment on above: Result Comment: >60 mL/min/1.73m2 EGFR, calc. for ages 18 and older using the MDRD formula (not corrected for weight), is valid for stable renal function. Performed By: #### B MP #### [facility] [address] [place] [address] GFR/1.73 sq M.predicted MDRD vol rate/area 38.8 mL/min/{1.73_m2} Low >60 [facility] Comment on above: Result Comment: >60 mL/min/1.73m2 EGFR, calc. for ages 18 and older using the MDRD formula (not corrected for weight), is valid for stable renal function. Performed By: #### B MP #### [facility] [address] [place] [address] Glucose mass conc 82 mg/dL Normal 70-99 [facility] Comment on above: Result Comment: Effe ctive: 12/21/2018 New reference range for this analyte has been established. Performed By: #### B MP #### [facility] [address] [place] [address] Potassium molar conc 4.2 mmol/L Normal 3.4-4.9 [facility] Comment on above: Result Comment: Effe ctive: 12/21/2018 New reference range for this analyte has been established. Performed By: #### B MP #### [facility] [address] [place] [address] Sodium molar conc 144 mmol/L Normal 135-144 [facility] Comment on above: Result Comment: Effe ctive: 12/21/2018 New reference range for this analyte has been established. Performed By: #### B MP #### [facility] [address] [place] [address] Urea nitrogen mass conc 28 mg/dL Critically high 6-20 [facility] Comment on above: Performed By: #### B MP #### [facility] [address] [place] [address] Lipid Panelon 03-09-2019 Cholesterol in HDL mass conc 30 mg/dL Low 40-59 [facility] Comment on above: Result Comment: ATP III [...] CHD Performed By: #### L IPID #### [facility] [address] [place] [address] Cholesterol in LDL mass conc 83 mg/dL Normal 0-129 [facility] Comment on above: Result Comment: ATP III LDL Classification is Optimal. Performed By: #### L IPID #### [facility] [address] [place] [address] Cholesterol mass conc 160 mg/dL Normal 0-199 [facility] Comment on above: Result Comment: ATP III Cholesterol classification is Desirable. Performed By: #### L IPID #### [facility] [address] [place] [address] Triglyceride mass conc 234 mg/dL Critically high 0-150 [facility] Comment on above: Result Comment: ATP III Triglycerides Classification is High. Effective: 12/21/2018 New reference range for this analyte has been established. Performed By: #### L IPID #### [facility] [address] [place] [address] Ammoniaon 03-04-2019 Ammonia mass conc (P) 35 umol/L Normal 16-60 [facility] Comment on above: Performed By: #### N H3 #### [facility] [address] [place] [address] [place] Levelon 03-04-2019 [place] molar conc 0.7 mmol/L Normal 0.6-1.2 [facility] Comment on above: Performed By: #### L ITH #### [facility] [address] [place] [address] TSH w/out Reflexon 201 9 Thyrotropin Qn 2.880 uIU/mL Normal 0.440-3.86 [facility] Comment on above: Result Comment: Effe ctive: 12/21/2018 New reference range for this analyte has been established. Performed By: #### T SH #### [facility] [address] [place] [address] VITAMIN Don 03-04-2019 VITAMIN D 33.1 ng/mL Normal 30.0-100.0 [facility] Comment on above: Result Comment: (30- 100 ng/mL) Optimum Level This assay accurately quantifies the sum of vitamin D3, 25-Hydroxy and vitamin D2, 25-Hyroxy. Performed By: #### V ITD #### [facility] [address] [place] [address] Valproic Acid /Depakene Leve rahul 03-04-2019 Protein mass conc 25.8 ug/mL Low 50.0-100.0 [facility] Comment on above: Performed By: #### V ALPR #### [facility] [address] [place] [address] Vitamin B12 and Folateon Cobalamin (Vitamin B12) mass conc 340 pg/mL Normal 232-1245 [facility] Comment on above: Performed By: #### B 12FO #### [facility] [address] [place] [address] Folate 10.2 ng/mL Normal 7.3-26.1 [facility] Comment on above: Result Comment: As o f 16, the methodology has changed. Results from this methodology should not be compared with results from previous methodology. Performed By: #### B 12FO #### [facility] [address] [place] [address] Creatinineon 06-06-2018 Creatinine 1.93 mg/dL High 0.58-0.96 [facility] Comment on above: Performed By: #### C RET1, TSH, LI ####[facility] [id number] [place], [place] [phone] eGFR (non-black) 27 . Normal [facility] Comment on above: Performed By: #### C RET1, TSH, LI ####[facility] [id number] [place], [place] [phone] eGFR- Amer. [address] [facility] Comment on above: Performed By: #### C RET1, TSH, LI ####[facility] [id number] [place], [place] [phone] Lithiumon 06-06-2018 [place] 0.8 mmol/L Normal 0.6-1.2 [facility] Comment on above: Performed By: #### C RET1, TSH, LI ####[facility] [id number] [place], [place] [phone] TSHon 06-06-2018 Thyroid stimulating hormone (TSH) 2.350 uU/mL Normal 0.400-5.50 0 [facility] Comment on above: Performed By: #### C RET1, TSH, LI ####[facility] [id number] [place], [place] [phone] Culture, urine Bacteria identified Cx Nom (U) Culture exhibits no growth. [facility] Work Phone: Bacteria identified Cx Nom (U) Positive [facility] Work Phone: Bacteria identified Cx Nom (U) Actinomyces turicensis [facility] Work Phone: Bacteria identified Cx Nom (U) Streptococcus mitis [facility] Work Phone: Vital Signs Date Time Vital Sign Value Performing Clinician Facility 02-26-2025 11:40-0400 Diastolic blood pressure 76 mm[Hg] [facility] Work Phone: [facility] 02-26-2025 11:40-0400 Heart rate 75 /min [facility] Work Phone: [facility] 02-26-2025 11:40-0400 Respiratory rate 18 /min [facility] Work Phone: [facility] 02-26-2025 11:40-0400 SaO2% (BldA) [Mass fraction] 96 % [facility] Work Phone: [facility] 02-26-2025 11:40-0400 Systolic blood pressure 122 mm[Hg] [facility] Work Phone: [facility] 02-26-2025 09:00-0400 Body temperature 98.6 [degF] [facility] Work Phone: [facility] 02-12-2025 14:04-0400 Diastolic blood pressure 55 mm[Hg] [facility] Work Phone: [facility] 02-12-2025 14:04-0400 Heart rate 78 /min [facility] Work Phone: [facility] 02-12-2025 14:04-0400 Respiratory rate 18 /min [facility] Work Phone: [facility] 02-12-2025 14:04-0400 SaO2% (BldA) [Mass fraction] 95 % [facility] Work Phone: [facility] 02-12-2025 14:04-0400 Systolic blood pressure 128 mm[Hg] [facility] Work Phone: [facility] 02-12-2025 09:00-0400 Body temperature 98.6 [degF] [facility] Work Phone: [facility] 09-14-2024 08:49-0400 Body height 176.3 cm Dorota Smith MD Work Phone: [facility] 09-14-2024 08:49-0400 Body mass index (BMI) [Ratio] 39.27 kg/m2 Dorota Smtih MD Work Phone: [facility] 09-14-2024 08:49-0400 Body temperature 97.3 [degF] Dorota Smith MD Work Phone: [facility] 09-14-2024 08:49-0400 Body weight 122.05 kg Dorota Smith MD [facility] [facility] 09-14-2024 08:49-0400 Diastolic blood pressure 65 mm[Hg] Dorota Smith MD Work Phone: [facility] 09-14-2024 08:49-0400 Heart rate 106 /min Dorota Smith MD Work Phone: [facility] 09-14-2024 08:49-0400 Respiratory rate 14 /min Dorota Smith MD Work Phone: [facility] 09-14-2024 08:49-0400 Systolic blood pressure 104 mm[Hg] Dorota Smith MD Work Phone: [facility] 08-09-2024 10:45-0400 Diastolic blood pressure 68 mm[Hg] [facility] Work Phone: [facility] 08-09-2024 10:45-0400 Heart rate 82 /min [facility] Work Phone: [facility] 08-09-2024 10:45-0400 Respiratory rate 18 /min [facility] Work Phone: [facility] 08-09-2024 10:45-0400 SaO2% (BldA) [Mass fraction] 96 % [facility] Work Phone: [facility] 08-09-2024 10:45-0400 Systolic blood pressure 125 mm[Hg] [facility] Work Phone: [facility] 08-09-2024 07:00-0400 Body temperature 98.4 [degF] [facility] Work Phone: [facility] 07-17-2024 11:09-0400 Body height 182.9 cm Anthony Olivares MD Work Phone: [facility] 07-17-2024 11:09-0400 Body mass index (BMI) [Ratio] 36.48 kg/m2 Anthony Olivares MD Work Phone: [facility] 07-17-2024 11:09-0400 Body weight 122 kg Anthony Olivares MD Work Phone: [facility] 07-17-2024 11:09-0400 Diastolic blood pressure 73 mm[Hg] Anthony Olivares MD Work Phone: [facility] 07-17-2024 11:09-0400 Heart rate 90 /min Anthony Olivares MD Work Phone: [facility] 07-17-2024 11:09-0400 Systolic blood pressure 106 mm[Hg] Anthony Olivares MD Work Phone: [facility] 01-26-2024 12:00-0400 Diastolic blood pressure 62 mm[Hg] [facility] Work Phone: [facility] 01-26-2024 12:00-0400 Heart rate 97 /min [facility] Work Phone: [facility] 01-26-2024 12:00-0400 Respiratory rate 18 /min [facility] Work Phone: [facility] 01-26-2024 12:00-0400 SaO2% (BldA) [Mass fraction] 96 % [facility] Work Phone: [facility] 01-26-2024 12:00-0400 Systolic blood pressure 110 mm[Hg] Chair [facility] Work Phone: [facility] 01-26-2024 07:05-0400 Body temperature 98.6 [degF] Chair [facility] Work Phone: [facility] 12-20-2023 09:51-0500 Body height 177.8 cm Anthony Olivares MD Work Phone: [facility] 12-20-2023 09:51-0500 Body temperature 97.7 [degF] Anthony Olivares MD Work Phone: [facility] 12-20-2023 09:51-0500 Body weight 126.4 kg Anthony Olivares MD Work Phone: [facility] 12-20-2023 09:51-0500 Diastolic blood pressure 68 mm[Hg] Anthony Olivares MD Work Phone: [facility] 12-20-2023 09:51-0500 Heart rate 116 /min Anthony Olivares MD Work Phone: [facility] 12-20-2023 09:51-0500 Systolic blood pressure 97 mm[Hg] Anthony Olivares MD Work Phone: [facility] 02-25-2023 11:04-0400 Body height 171.5 cm Luz Daniel MD Work Phone: [facility] 02-25-2023 11:04-0400 Body temperature 97.9 [degF] Luz Daniel MD Work Phone: [facility] 02-25-2023 11:04-0400 Body weight 146.69 kg Luz Daniel MD Work Phone: [facility] 02-25-2023 11:04-0400 Diastolic blood pressure 86 mm[Hg] Luz Daniel MD Work Phone: [facility] 02-25-2023 11:04-0400 Heart rate 93 /min Luz Daniel MD Work Phone: [facility] 02-25-2023 11:04-0400 Systolic blood pressure 125 mm[Hg] Luz Daniel MD Work Phone: [facility] 11-03-2022 13:05-0500 Body temperature 97.2 [degF] Guki 2 Work Phone: [facility] 11-03-2022 13:05-0500 Diastolic blood pressure 78 mm[Hg] [place] 2 Work Phone: [facility] 11-03-2022 13:05-0500 Heart rate 89 /min [place] 2 Work Phone: [facility] 11-03-2022 13:05-0500 Respiratory rate 18 /min [place] 2 Work Phone: [facility] 11-03-2022 13:05-0500 SaO2% (BldA) [Mass fraction] 95 % [place] 2 Work Phone: [facility] 11-03-2022 13:05-0500 Systolic blood pressure 124 mm[Hg] [place] 2 Work Phone: [facility] 11-03-2022 07:52-0500 Body weight 144.74 kg [place] 2 Work Phone: [facility] 08-27-2022 10:46-0400 Body height 171.5 cm Luz Daniel MD Work Phone: [facility] 08-27-2022 10:46-0400 Body temperature 98.29 [degF] Luz Daniel MD Work Phone: [facility] 08-27-2022 10:46-0400 Body weight 146.06 kg Luz Daniel MD Work Phone: [facility] 08-27-2022 10:46-0400 Diastolic blood pressure 95 mm[Hg] Luz Daniel MD Work Phone: [facility] 08-27-2022 10:46-0400 Heart rate 109 /min Luz Daniel MD Work Phone: [facility] 08-27-2022 10:46-0400 Systolic blood pressure 132 mm[Hg] Luz Daniel MD Work Phone: [facility] 07-27-2022 15:53-0400 Body height 176.5 cm Anthony Olivares MD Work Phone: [facility] 07-27-2022 15:53-0400 Body weight 142.88 kg Anthony Olivares MD Work Phone: [facility] 07-27-2022 15:53-0400 Diastolic blood pressure 85 mm[Hg] Anthony Olivares MD Work Phone: [facility] 07-27-2022 15:53-0400 Heart rate 94 /min Anthony Olivares MD Work Phone: [facility] 07-27-2022 15:53-0400 Systolic blood pressure 128 mm[Hg] Anthony Olivares MD Work Phone: [facility] 05-05-2022 13:15-0400 Body temperature 97.2 [degF] Kidney 1 [facility] 05-05-2022 13:15-0400 Diastolic blood pressure 91 mm[Hg] Kidney 1 [facility] 05-05-2022 13:15-0400 Heart rate 116 /min Kidney 1 [facility] 05-05-2022 13:15-0400 Systolic blood pressure 157 mm[Hg] Kidney 1 [facility] 05-05-2022 07:40-0400 SaO2% (BldA) [Mass fraction] 95 % Kidney 1 [facility] 05-05-2022 07:36-0400 Body weight 140.57 kg Kidney 1 [facility] 11-04-2020 15:52-0500 Body Temperature 97.2 [degF] [place] 11-04-2020 15:52-0500 BP Diastolic 74 mm[Hg] [facility] [place] [facility] 11-04-2020 15:52-0500 BP Systolic 113 mm[Hg] [facility] [place] , [facility] 11-04-2020 15:52-0500 Pulse (Heart Rate) 92 /min [facility] [place] 11-04-2020 15:52-0500 Pulse Oximetry 96 % [facility] [place] [facility] 11-04-2020 15:52-0500 Respiratory Rate 17 /min [facility], [facility] 11-04-2020 05:31-0500 Body weight 114.31 kg Otf [place] Encounters Encounter Date Encounter Type Care Provider Facility Start: 08-02-2025 ambulatory Adam Ferraro OLS Fac ility:[facility] Start: 07-29-2025 ambulatory Alfredo Lexiiros OLS Faci lity:[facility] Start: 07-02-2025 ambulatory Lasha Dixonyuko laith OLS Facility:[facility] Start: 07-01-2025 ambulatory Adam Wandaning OLS Fac ility:[facility] Start: 06-27-2025 ambulatory Adam Muñozning OLS Fac ility:[facility] Start: 06-20-2025 ambulatory Alfredo Shultzsaros OLS Faci lity:[facility] Start: 06-19-2025 ambulatory Alfredo Wayros OLS Faci lity:[facility] Start: 06-06-2025 End: 06-06-2025 ambulatory Julieta Luo RN Kidney Medicine [facility] Start: 06-05-2025 ambulatory Adam Gunning OLS Fac ility:[facility] Start: 05-28-2025 ambulatory Adam Wandaning OLS Fac ility:[facility] Start: 05-26-2025 ambulatory Adam Wandaning OLS Fac ility:[facility] Start: 05-24-2025 ambulatory Adam Gunning OLS Fac ility:[facility] Start: 05-23-2025 End: 05-23-2025 Telemedicine consultation with patient Anthony Olivares MD Work Phone: [facility] Start: 05-23-2025 End: 05-27-2025 ambulatory Anthony Olivares MD Work Phone: [facility] [place] Comment on above: 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 Elgin Bal MD Work Phone: -[place] [employer] Start: 04-01-2025 End: 04-01-2025 Departed Referred Adam Jasmine [facility] [employer] Start: 04-01-2025 End: 04-01-2025 ambulatory Adam CHANDLER Facility:[facility] Start: 03-27-2025 ambulatory [facility] Start: 03-27-2025 Registered Referred Alfredo Phipps - [place] [employer] Start: 03-04-2025 End: 03-04-[address] Elgin Bal MD Work Phone: [facility] Work Phone: Start: 03-04-2025 End: 03-04-2025 Departed Referred Adam Jasmine -[place] [employer] Start: 03-04-2025 Registered Referred Adam Ferraro -[place] [employer] Start: 03-04-2025 End: 03-04-2025 ambulatory Adam Muñozmele RAMESH Facility:[facility] Start: 02-27-2025 End: 02-27-[address] Elgin Bal MD Work Phone: [facility] Work Phone: Start: 02-27-2025 End: 02-27-2025 Departed Referred Alfredo Phipps [place] [employer] Start: 02-27-2025 Registered Referred Alfredo Phipps - [place] [employer] Start: 02-26-2025 End: 02-27-2025 ambulatory ANTHONY OLIVARES Facility:[facility] Start: 02-26-2025 End: 02-26-2025 Subsequent hospital visit by physician Chair [facility] Work Phone: [facility] Start: 02-25-2025 End: 02-25-[address] Elgin Bal MD Work Phone: [facility] Work Phone: Start: 02-25-2025 End: 02-25-2025 [facility]ed [facility] [place] Start: 02-25-2025 Registered Referred Adam Ferraro -[place] [employer] Start: 02-25-2025 End: 02-25-2025 ambulatory Adam Wandamele CHANDLER Facility:[facility] Start: 02-12-2025 ambulatory ANTHONY OLIVARES Facility: [facility] Start: 02-12-2025 End: 02-12-2025 Subsequent hospital visit by physician Chair [facility] Work Phone: [facility] Start: 02-11-2025 End: 02-11-[address] Elgin Bal MD Work Phone: [facility] Work Phone: Start: 02-11-2025 End: 02-11-2025 Departed Referred Alfredo Robertouary [employer] Start: 02-11-2025 Registered Referred Alfredo Gutierrezuary [employer] Start: 02-11-2025 End: 02-11-2025 ambulatory Alfredo CHANDLER Facility:[facility] Start: 02-06-2025 End: 02-06-[address] Elgin Bal MD Work Phone: [facility] Work Phone: Start: 02-06-2025 End: 02-06-2025 Departed Referred Alfredo Robertouary [employer] Start: 02-06-2025 Registered Referred Alfredo Phipps - [place] [employer] Start: 02-06-2025 End: 02-06-2025 ambulatory Alfredo Phipps RAMESH Facility:[facility] Start: 01-30-2025 End: 01-30-2025 Departed Referred Adam Ferraro -[place] [employer] Start: 01-30-2025 End: 01-30-2025 Orders Only Anthony Olivares MD Work Phone: [facility] Start: 01-30-2025 Registered Referred Adam Ferraro -[place] [employer] Start: 01-30-2025 End: 01-30-2025 ambulatory Adam CHANDLER Facility:[facility] Start: 01-25-2025 End: 01-25-[address] Elgin Bal MD Work Phone: [facility] Work Phone: Start: 01-25-2025 End: 01-25-2025 Departed Referred Adam Ferraro -[place] [employer] Start: 01-25-2025 End: 01-25-2025 ambulatory Adam CHANDLER Facility:[facility] Start: 01-03-2025 End: 01-03-[address] Elgin Bal MD Work Phone: [facility] Work Phone: Start: 01-03-2025 End: 01-03-2025 Departed Referred Adam Ferraro -[place] [employer] Start: 01-03-2025 Registered Referred Adam Ferraro -[place] [employer] Start: 01-02-2025 End: 01-03-[address] Elgin Bal MD Work Phone: [facility] Work Phone: Start: 01-02-2025 End: 01-02-2025 Departed Referred Adam Ferraro -[place] [employer] Start: 01-02-2025 Registered Referred Adam Ferraro -[place] [employer] Start: 01-02-2025 End: 01-02-2025 ambulatory Adam Wandamele CHANDLER Facility:[facility] Start: 12-28-2024 End: 12-28-[address] Elgin Bal MD Work Phone: [facility] Work Phone: Start: 12-28-2024 End: 12-28-2024 Departed Referred Adam Ferraro -[place] [employer] Start: 12-28-2024 End: 12-28-2024 ambulatory Adam CHANDLER Facility:[facility] Start: 11-27-2024 End: 11-27-2024 Departed Referred Adam Ferraro -[place] [employer] Start: 11-27-2024 End: 11-27-2024 ambulatory Adam CHANDLER Facility:[facility] Start: 11-20-2024 End: 11-23-2024 ambulatory Anthony Olivares MD Work Phone: [facility] Start: 11-15-2024 End: 11-15-2024 Departed Referred Adam Ferraro -[place] [employer] Start: 11-15-2024 End: 11-15-2024 ambulatory [facility] Facility:[facility] Start: 09-27-2024 End: 09-27-2024 Departed Referred Adam Ferraro -[place] [employer] Start: 09-27-2024 End: 09-27-2024 ambulatory [facility] Facility:[facility] Start: 09-14-2024 End: 09-14-2024 Patient encounter procedure Dorota Smith MD Work Phone: [facility] Rheumatology and Arthritis Comment on above: 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); Rash and nonspecific skin eruption; 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) Start: 09-14-2024 End: 09-14-2024 ambulatory ALFREDO PHIPPS Facility:[facility] Start: 09-12-2024 End: 09-12-2024 ambulatory [facility] Facility:[facility] Start: 08-27-2024 End: 08-27-2024 ambulatory [facility] Facility:[facility] Start: 08-10-2024 ambulatory Alfredo CHANDLER Faci lity:[facility] Start: 08-09-2024 ambulatory ANTHONY OLIVARES Facility: [facility] Start: 08-09-2024 End: 08-09-2024 Subsequent hospital visit by physician Chair [facility] Work Phone: Infusion Center Comment on above: Rituximab Start: 07-17-2024 End: 07-17-2024 Patient encounter procedure Anthony Olivares MD Work Phone: [facility] [place] Comment on above: 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); Stage 3b chronic kidney disease (HCC); Benign hypertension with chronic kidney disease Start: 07-17-2024 End: 07-20-2024 ambulatory Anthony Olivares MD Work Phone: [facility] Start: 05-21-2024 Telephone encounter Dorota hameed MD Work Phone: [facility] Rheumatology and Arthritis Comment on above: No [...] kidney disease Start: 02-03-2024 End: 02-03-2024 ambulatory [facility] Work Phone: Start: 02-03-2024 End: 02-03-2024 Departed Referred [facility] [email or web address] Start: 01-26-2024 End: 01-26-2024 Subsequent hospital visit by physician Chair [facility] Work Phone: Infusion Center Comment on above: Rituximab Start: 01-06-2024 End: 01-06-2024 ambulatory [facility] Work Phone: Start: 01-06-2024 End: 01-06-2024 Departed Referred [facility] [email or web address] Start: 12-29-2023 Orders Only Babak Drummond RN [facility] Start: 12-27-2023 Orders Only Anthony Olivares MD Work Phone: [facility] Start: 12-23-2023 Telephone encounter Nuria noyola RN Kidney Medicine Comment on above: Appointment Start: 12-20-2023 ambulatory Anthony Olivares MD Work Phone: [facility] Start: 12-20-2023 End: 12-20-2023 Patient encounter procedure Anthony Olivares MD Work Phone: [facility] Comment on above: 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); Stage 3b chronic kidney disease (HCC); Benign hypertension with chronic kidney disease Start: 12-09-2023 End: 12-09-2023 ambulatory [facility] Work Phone: Start: 12-09-2023 End: 12-09-2023 [facility] Start: 11-16-2023 End: 11-16-2023 Departed Referred [facility] [employer] [facility] Start: 11-16-2023 [facility] Start: 11-11-2023 End: 11-11-2023 ambulatory [facility] Work Phone: Start: 11-11-2023 End: 11-11-2023 Departed Referred [facility] [employer] [facility] Start: 11-11-2023 Registered Referred [facility] [employer] [facility] Start: 10-27-2023 End: 10-27-2023 ambulatory [facility] Work Phone: Start: 10-27-2023 End: 10-27-2023 Departed Referred [facility] Start: 10-14-2023 End: 10-14-2023 ambulatory [facility] Work Phone: Start: 10-14-2023 End: 10-14-2023 [facility] Start: 09-27-2023 End: 09-27-2023 ambulatory [facility] Work Phone: Start: 09-27-2023 End: 09-27-2023 [facility] Start: 09-27-2023 [facility] Start: 09-16-2023 End: 09-16-2023 ambulatory [facility] Work Phone: Start: 09-16-2023 End: 09-16-2023 [facility] Start: 08-29-2023 Telephone encounter Dorota hameed MD Work Phone: [facility] Rheumatology and Arthritis Comment on above: Patient Update Start: 08-26-2023 Telephone encounter Luz Daniel MD Work Phone: [facility] Arthritis and Rheumatology [place] Comment on above: NO SHOW Start: 08-19-2023 End: 08-19-2023 ambulatory [facility] Work Phone: Start: 08-19-2023 End: 08-19-2023 [facility] Start: 07-28-2023 End: 07-28-2023 [facility] Start: 07-28-2023 [facility] [employer] Start: 07-24-2023 [facility] [employer] Start: 07-22-2023 End: 07-22-2023 ambulatory [facility] Work Phone: Start: 07-22-2023 End: 07-22-2023 [facility] Start: 06-24-2023 End: 06-24-2023 ambulatory [facility] Work Phone: Start: 06-24-2023 End: 06-24-2023 Departed Referred [facility] [employer] Start: 06-24-2023 Registered Referred [facility] [employer] Start: 05-30-2023 End: 05-30-2023 ambulatory [facility] Work Phone: Start: 05-30-2023 End: 05-30-2023 [facility] [employer] [facility] Start: 05-30-2023 [facility] Start: 05-27-2023 End: 05-27-2023 ambulatory [facility] Work Phone: Start: 05-27-2023 End: 05-27-2023 [facility] [employer] [facility] Start: 05-27-2023 [facility] [facility] Start: 05-19-2023 End: 05-19-2023 ambulatory [facility] Work Phone: Start: 05-19-2023 End: 05-19-2023 [facility] [employer] [facility] Start: 05-19-2023 [facility] [employer] [facility] Start: 04-29-2023 End: 04-29-2023 ambulatory [facility] Work Phone: Start: 04-29-2023 End: 04-29-2023 [facility] [employer] [facility] Start: 04-29-2023 [facility] [employer] [facility] Start: 04-27-2023 End: 04-27-2023 ambulatory [facility] Work Phone: Start: 04-27-2023 End: 04-27-2023 [facility] [employer] [facility] Start: 04-04-2023 End: 04-04-2023 [facility] [employer] [facility] Start: 04-01-2023 End: 04-01-2023 [facility] [employer] [facility] Start: 03-04-2023 End: 03-04-2023 ambulatory [facility] Work Phone: Start: 03-04-2023 End: 03-04-2023 [facility] [employer] [facility] Start: 02-25-2023 End: 02-25-2023 Patient encounter procedure Luz Daniel MD Work Phone: [facility] Arthritis and Rheumatology [place] Comment on above: Rheumatoid arthritis involving both hands 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 rheumatoid factor (HCC) (Primary Dx); 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) Start: 02-25-2023 End: 02-25-2023 ambulatory [facility] Work Phone: Start: 02-25-2023 End: 02-25-2023 [facility] [employer] Start: 02-04-2023 End: 02-04-2023 ambulatory [facility] Work Phone: Start: 02-04-2023 End: 02-04-2023 [facility] [employer] [facility] Start: 02-04-2023 [facility] [employer] [facility] Start: 01-25-2023 End: 01-25-2023 ambulatory [facility] Work Phone: Start: 01-25-2023 End: 01-25-2023 [facility] [employer] [facility] Start: 01-25-2023 [facility] [facility] Start: 01-19-2023 End: 01-19-2023 [facility] [employer] [facility] Start: 01-19-2023 [facility] [employer] [facility] Start: 01-07-2023 End: 01-07-2023 ambulatory [facility] Work Phone: Start: 01-07-2023 End: 01-07-2023 [facility] [employer] Start: 01-07-2023 [facility] [employer] [facility] Start: 12-28-2022 End: 12-28-2022 ambulatory [facility] Work Phone: Start: 12-28-2022 End: 12-28-2022 [facility] [employer] [facility] Start: 12-28-2022 [facility] [employer] Start: 12-15-2022 End: 12-15-2022 [facility] [employer] [facility] Start: 12-15-2022 [facility] [employer] Start: 12-10-2022 End: 12-10-2022 ambulatory [facility] Work Phone: Start: 12-10-2022 End: 12-10-2022 [facility] [employer] Start: 11-17-2022 End: 11-17-2022 ambulatory [facility] Work Phone: Start: 11-17-2022 End: 11-17-2022 [facility] [employer] Start: 11-17-2022 Registered [facility] Start: 11-12-2022 End: 11-12-2022 Departed [facility] Start: 11-12-2022 Registered [facility] Start: 11-03-2022 End: 11-03-2022 Patient encounter procedure Kidney Med Main Infusion Chair 1 Kidney Medicine Comment on above: 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) Start: 11-02-2022 Orders Only Adam Tee MD Work Phone: Kidney Medicine Main [place] Comment on above: 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) Start: 10-27-2022 End: 10-27-2022 ambulatory [facility] Work Phone: Start: 10-27-2022 End: 10-27-2022 Departed [facility] Start: 10-27-2022 Registered [facility] Start: 10-15-2022 End: 10-15-2022 Departed [facility] Start: 10-15-2022 Registered [facility] Start: 09-27-2022 End: 09-27-2022 ambulatory [facility] Work Phone: Start: 09-27-2022 End: 09-27-2022 Departed Referred [facility] [employer] Start: 09-27-2022 Registered [facility] Start: 09-17-2022 End: 09-17-2022 ambulatory [facility] Work Phone: Start: 09-17-2022 End: 09-17-2022 Departed Referred [facility] Start: 09-17-2022 Registered [facility] Start: 08-27-2022 End: 08-27-2022 Patient encounter procedure Luz Daniel MD Work Phone: [facility] [place] Comment on above: Rheumatoid arthritis involving both hands 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 rheumatoid factor (HCC) (Primary Dx) Start: 08-27-2022 End: 08-27-2022 Departed Referred [facility] Start: 08-27-2022 Registered [facility] Start: 08-23-2022 End: 08-23-2022 ambulatory [facility] Work Phone: Start: 08-23-2022 End: 08-23-2022 Departed [facility] Start: 08-23-2022 Registered [facility] Start: 08-12-2022 End: 08-12-2022 ambulatory [facility] Work Phone: Start: 08-12-2022 End: 08-12-2022 Departed [facility] Start: 07-28-2022 End: 07-28-2022 ambulatory [facility] Work Phone: Start: 07-28-2022 End: 07-28-2022 Departed [facility] Start: 07-28-2022 Registered [facility] Start: 07-27-2022 End: 07-27-2022 Patient encounter procedure Anthony Olivares MD Work Phone: [facility] Comment on above: 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); Stage 3a chronic kidney disease (HCC) Start: 07-27-2022 ambulatory Anthony Olivares MD Work Phone: [facility] Start: 07-15-2022 End: 07-15-2022 ambulatory [facility] Work Phone: Start: 07-15-2022 End: 07-15-2022 Departed [facility] Start: 07-15-2022 [facility] Start: 06-28-2022 End: 06-28-2022 ambulatory [facility] Work Phone: Start: 06-28-2022 End: 06-28-2022 Departed [facility] Start: 06-28-2022 [facility] Start: 06-17-2022 End: 06-17-2022 ambulatory [facility] Work Phone: Start: 06-17-2022 End: 06-17-2022 Departed [facility] Start: 05-27-2022 End: 05-27-2022 Departed [facility] Start: 05-20-2022 End: 05-20-2022 Departed Referred [facility] [employer] Start: 05-05-2022 Patient encounter procedure Anthony Olivares MD Work Phone: Kidney Medicine Main [place] Comment on above: 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); Stage 3b chronic kidney disease (HCC); Benign hypertension with chronic kidney disease Start: 05-05-2022 End: 05-05-2022 Subsequent hospital visit by physician Gus Main J1-4 Work Phone: Radiology Comment on above: Rheumatoid arthritis involving both hands 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 rheumatoid factor (HCC) [M06.041, M06.042] Start: 05-05-2022 End: 05-05-2022 Nursing evaluation of patient and report Kidney Med Main Infusion Chair 1 Kidney Medicine Comment on above: 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); Vasculitis (HCC) Start: 04-27-2022 End: 04-27-2022 Departed Referred [facility] [employer] Start: 04-27-2022 Registered Referred [facility] [email or web address] Start: 04-22-2022 End: 04-22-2022 Departed Referred [facility] [employer] Start: 04-22-2022 Registered Referred [facility] Start: 04-21-2022 End: 04-21-2022 Departed Referred [facility] [employer] Start: 04-21-2022 Registered Referred [facility] Start: 04-06-2022 End: 04-06-2022 Departed Referred [facility] [employer] Start: 04-06-2022 Registered Referred [facility] [employer] Start: 04-05-2022 End: 04-05-2022 Departed Referred [facility] [employer] Start: 04-05-2022 Registered Referred [facility] [employer] Start: 04-02-2022 End: 04-02-2022 Departed [facility] Start: 04-02-2022 [facility]istered [facility] Start: 03-30-2022 Orders Only Anthony Olivares MD Work Phone: Kidney Medicine [facility] Comment on above: Granulomatosis with polyangiitis, unspecified whether renal involvement (HCC) (Primary Dx) Start: 03-25-2022 End: 03-25-2022 Departed [facility] Start: 03-25-2022 [facility]istered [facility] Start: 03-19-2022 End: 03-19-2022 Departed [facility] Start: 03-19-2022 Registered [facility] Start: 02-25-2022 End: 02-25-2022 Departed [facility] Start: 02-25-2022 Registered [facility] Start: 02-18-2022 End: 02-18-2022 Departed [facility] Start: 01-28-2022 End: 01-28-2022 [facility]ed [facility] Start: 01-28-2022 Registered [facility] Start: 01-25-2022 End: 01-25-2022 [facility]ed [facility] Start: 01-25-2022 Registered [facility] Start: 01-04-2022 End: 01-04-2022 [facility]arted [facility] Start: 01-04-2022 Registered [facility] Start: 12-07-2021 End: 12-07-2021 Departed [facility] Start: 12-03-2021 Registered [facility] Start: 11-09-2021 Registered Referred [facility] Start: 11-05-2021 Registered Referred [facility] Start: 10-28-2020 End: 11-04-2020 Evaluation and management of inpatient Otf Long Work Phone: [facility] [employer] Comment on above: Pneumonia due to COV ID-19 virus (Primary Dx); Hypoxia; Hypokalemia; Stage 3 chronic kidney disease, unspecified whether stage 3a or 3b CKD Start: 11-14-2019 Encounter for genera l adult medical examination without abnormal findings [facility] Start: 11-14-2019 End: 08-05-2020 Patient encounter procedure HODA BROWNING [facility] Start: 08-06-2019 End: 08-06-2019 Patient encounter procedure HODA BROWNING [facility] Start: 10-21-2009 End: 01-29-2013 Patient encounter status Ronny Polanco MD Work Phone: [facility] Encounter for genera l adult medical examination without abnormal findings [facility] Procedures Date Procedure Procedure Detail Performing Clinician Start: 05-02-[address] Elgin Bal MD Work Phone: Start: 04-24-[address] Elgin Bal MD Work Phone: Start: 04-24-2025 Serum inorganic phos phate measurement Dr. Elgin Bal MD Work Phone: Start: 04-01-[address] Elgin Bal MD Work Phone: Start: 02-27-[address] Elgin Bal MD Work Phone: Start: 01-30-[address] Elgin Bal MD Work Phone: Start: 01-03-[address] Elgin Bal MD Work Phone: Start: 01-03-2025 Urine microalbumin/creatinine ratio measurement Dr. Elgin Bal MD Work Phone: Comment on above: Test not performed Start: 01-02-2025 Assay of phosphorus inorganic Dr. Elgin Bal MD Work Phone: Start: 01-02-[address] Elgin Bal MD Work Phone: [...] O2 EVAL (DESATU RATION SCREEN) Imola K Emily Work Phone: Start: 11-04-2020 Blood count complete auto&auto difrntl wbc Imola K Osapay Work Phone: Start: 11-04-2020 Blood count complete auto&auto difrntl wbc Imola K Osapay Work Phone: Start: 11-04-2020 MANUAL DIFFERENTIAL Imo la K Emily Work Phone: Start: 11-03-2020 Radiologic exam ches t 2 views Imola K Osapay Work Phone: Start: 11-03-2020 ADD ON LAB TEST Farrukh Diaz Work Phone: Start: 11-03-2020 Blood count complete auto&auto difrntl wbc Imola Jeremy Diaz Work Phone: Start: 11-03-2020 MANUAL DIFFERENTIAL Imo la Jeremy Diaz Work Phone: Start: 11-03-2020 Procalcitonin (pct) Imo la Jeremy Diaz Work Phone: Start: 11-02-2020 Assay of ferritin Farrukh Diaz Work Phone: Start: 11-02-2020 Blood count complete auto&auto difrntl wbc Farrukh K Emily Work Phone: Start: 11-02-2020 Blood count complete automated Farrukh Diaz Work Phone: Start: 11-02-2020 C-reactive protein Cindyol a Jeremy Diaz Work Phone: Start: 11-02-2020 Fibrin dgradj produc ts d-dimer quantitative Farrukh Diaz Work Phone: Start: 11-02-2020 Fibrinogen activity Cindyo helena Diaz Work Phone: Start: 11-02-2020 Lactate dehydrogenase ldh Farrukh Diaz Work Phone: Start: 11-02-2020 Thromboplastin time partial plasma/whole blood Imola K Emily Work Phone: Start: 11-01-2020 Assay of ferritin Cindyola K Emily Work Phone: Start: 11-01-2020 Blood count complete auto&auto difrntl wbc Imola K Patrickpacandido Work Phone: Start: 11-01-2020 C-reactive protein Imol [...] Start: 10-29-2020 C-reactive protein Imol a K Osapay Work Phone: Start: 10-29-2020 Fibrin dgradj produc ts d-dimer quantitative Imola K Osapay Work Phone: Start: 10-29-2020 Fibrinogen activity Imo la K Osapay Work Phone: Start: 10-29-2020 Lactate dehydrogenase ldh Imola K Osapay Work Phone: Start: 10-29-2020 Procalcitonin (pct) Phillip Hernandez Work Phone: Start: 10-28-2020 Urnls dip stick/tabl [...] Work Phone: Start: 10-28-2020 Natriuretic peptide Bruce iel Adrianne Work Phone: Start: 10-28-2020 Ecg routine ecg w/le ast 12 lds w/i&r Andrew Silver Work Phone: Start: 10-28-2020 Radiologic exam ches t single view Andrew Silver Work Phone: Start: 10-28-2020 RESPIRATORY PANEL, MOLECULAR, WITH COVID-19 Farrukh Diaz Work Phone: Start: 05-05-2020 Urinalysis HODA WYATT Comment on above: Result Comment: URIN ALYSIS Performed By: #### [id number] #### [facility],[address] [place] [address] Start: 04-08-2020 Urinalysis HODA WYATT Comment on above: Result Comment: URIN ALYSIS Performed By: #### [id number] #### [place] [address] Start: 02-04-2020 Urinalysis HODA WYATT Comment on above: Result Comment: URIN ALYSIS Performed By: #### 2 [id number] #### [place] [address] Start: 01-07-2020 Urinalysis HODA WYATT Comment on above: Result Comment: URIN ALYSIS Performed By: #### 2 [id number] #### [place] [address] Start: 12-10-2019 Urinalysis HODA WYATT Comment on above: Result Comment: URIN ALYSIS Performed By: #### 2 [id number] #### [facility],[address] [place] [address] Start: 11-05-2019 Urinalysis HODA WYATT Comment on above: Result Comment: URIN ALYSIS Performed By: #### [id number] #### [place] [address] Start: 10-08-2019 Urinalysis HODA WYATT Comment on above: Result Comment: URIN ALYSIS Performed By: #### 2 [id number] #### [place] [address] Start: 09-10-2019 Urinalysis HODA WYATT Comment on above: Result Comment: URIN ALYSIS Performed By: #### 2 [id number] #### [place] [address] Start: 08-10-2019 Adult depression scr eening assessment Anthony Olivares MD Work Phone: Start: 08-06-2019 Urinalysis HODA WYATT Comment on above: Result Comment: URIN ALYSIS Performed By: #### 2 [id number] #### [facility],[address] [place] [address] Start: 07-23-2019 Colonoscopy Anthony rosa MD Work Phone: Start: 08-09-2018 Lipid 1996 panel - S ellen or Plasma Luz Daniel MD Work Phone: Urine culture Urine culture Plan of Treatment Date Care Activity Detail Author Start: 12-20-2028 Lipid panel Lipid Screening [facility] Start: 12-20-2026 Diabetes Screening Diabetes Screenin g [facility] Start: 09-16-2025 End: 09-16-2025 Patient encounter procedure 09/16/2025 9:00 AM EST Office Visit [facility] [address] [place], [place] [id number] Dorota Smith MD [address] [place] [address] 6 months in office PA [facility] Comment on above: 6 months in office P A Start: 09-14-2025 BP Controlled (<130/80) BP Controlle d (<130/80) [facility] Start: 08-15-2025 End: 08-15-2025 Patient encounter procedure 08/15/2025 2:20 PM EDT Office Visit [facility] [address] [place] [id number] Anthony Olivares MD [address] [place] [address] f/u [facility] Comment on above: f/u Start: 07-17-2025 BP Controlled (<130/80) BP Controlle d (<130/80) [facility] Start: 07-15-2025 Influenza vaccination Influenza Vacc ine (#1) [facility] Start: 05-23-2025 End: 05-23-2025 Patient encounter procedure 05/23/2025 4:00 PM EDT Office Visit [facility] [address] [place] [id number] Anthony Olivares MD [address] [place], [place] [id number] Virtual f/u per Dr Olivares.I spoke with Nursing Facility where patient is at [facility] Comment on above: Virtual f/u per Dr Leonie herrera.I spoke with Nursing Facility where patient is at Start: 03-20-2025 End: 03-20-2025 Patient encounter procedure 03/20/2025 9:00 AM EDT Office Visit [facility] [address] [place] [address] Leeann Lopez PA-C [address] [place], [place] [id number] [facility] Comment on above: 6 months in office P A Start: 02-26-2025 End: 02-26-2025 Patient encounter procedure 02/26/2025 9:00 AM EDT Appointment Infusion Center [address] [place] [id number] [address] Ignacio Jack, granulomatosis, () Infusion Center Comment on above: Dr Ignacio Jack, granulomatosis, () Start: 02-20-2025 Covid-19 Vaccine (9 - Pfizer risk ) Covid-19 Vaccine (9 - Pfizer risk ) [facility] Start: 12-20-2024 BP Controlled (<130/80) BP Controlle d (<130/80) [facility] Start: 12-20-2024 Complete blood count Hemoglobin/Timo tocrit [facility] Start: 12-20-2024 Creatinine measurement Serum Creatin ine [facility] Start: 11-20-2024 End: 11-20-2024 Patient encounter procedure 11/20/2024 11:00 AM EST Office Visit Kid[facility] [address] [place] [id number] Anthony Olivares MD [address] [place] [address] follow up in October per Dr Olivares Kidney Medicine [facility] Comment on above: follow up in per Dr Olivares Start: 11-14-2024 Medicare Advantage Annual Wellness Visit Medicare Advantage Annual Wellness Visit [facility] Start: 10-17-2024 Covid-19 Vaccine () Covid-19 Vaccine () [facility] Start: 09-14-2024 End: 09-14-2024 Patient encounter procedure 09/14/2024 9:00 AM EDT Office Visit [facility] [address] [place] [address] Dorota Smith MD [address] [place], [place] [id number] RA/Trans from Dr Daniel to [facility] Comment on above: RA/Trans from Dr Ruben welsh to [place] [facility] Start: 08-09-2024 End: 08-09-2024 Patient encounter procedure 08/09/2024 7:00 AM EDT Appointment Infusion Center [address] [place] [address] rituximabJulia simon(RK) Infusion Center Comment on above: rituximabJulia simon(RK) Start: 07-17-2024 End: 07-17-2024 Patient encounter procedure 07/17/2024 11:20 AM EDT Office Visit [facility] [address] [address] Anthony Olivares MD [address] [place] [address] Vasculitis Renal follow up [facility] Comment on above: Vasculitis Renal fol low up Start: 07-15-2024 Covid-19 Vaccine ( season) Covid-19 Vaccine ( season) [facility] Start: 07-15-2024 Covid-19 Vaccine ( season) Covid-19 Vaccine ( season) [facility] Start: 07-15-2024 Influenza vaccination Influenza Vacc ine (#1) [facility] Start: 05-21-2024 End: 05-21-2024 Patient encounter procedure 05/21/2024 9:20 AM EDT Office Visit [facility] [address] [place] [address] Dorota Smith MD [address] [place] [address] RA/Trans from Dr Daniel to Smith [facility] Comment on above: RA/Trans from Dr Ruben welsh to [place] [facility] Start: 03-09-2024 Lipid panel Lipid Screening [facility] Start: 02-21-2024 PROSTATE CANCER SCREENING DISCUSSION PROSTATE CANCER SCREENING DISCUSSION [facility] Start: 02-21-2024 Prostate specific antigen measurement Prostate Cancer Screening Discussion [facility] Start: 12-20-2023 End: 03-20-2024 25-hydroxyvitamin D3 [Mass/volume] in Serum or Plasma [facility] Work Phone: Comment on above: Expected: 12/20/2023 , Expires: 03/20/2024 Start: 12-12-2023 Covid-19 Vaccine () Covid-19 Vaccine () [facility] Start: 11-14-2023 Behavioral Health Screening Behavioral Health Screening [facility] Start: 11-14-[address] [facility] Start: 11-04-2023 Diabetes Screening Diabetes Screenin [facility] Start: 11-03-2023 BP CONTROLLED (<130/80) BP CONTROLLE D (<130/80) [facility] Start: 09-18-2023 DIABETES SCREEN DIABETES SCREEN [facility] Start: 09-18-2023 Diabetes Screening Diabetes Screenin [facility] Start: 08-09-2023 Lipid 1996 panel - S ellen or Plasma Lipid Screening [facility] Start: 08-09-2023 LIPID SCREEN LIPID SCREEN [facility] Start: 07-15-2023 Covid-19 Vaccine ( season) Covid-19 Vaccine () [facility] Start: 07-15-2023 Influenza vaccination C [facility] Start: 2023 RSV Vaccine (1 - 1-d ose 60+ series) RSV Vaccine (1 - 1-dose 60+ series) [facility] Start: 2023 RSV Vaccine (1 - Ris k 60-74 years 1-dose series) RSV Vaccine (1 - Risk 60-74 years 1-dose series) [facility] Start: 11-14-2022 DEPRESSION ASSESSMENT DEPRESSION ASS ESSMENT [facility] Start: 11-03-2022 End: 11-03-2023 Chronic hepatitis differentiation between hepatitis B and C virus panel - Serum or Plasma HEP REMOTE PANEL BL Lab Routine 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) Expected: 11/03/2022, Expires: 11/03/2023 [facility] Work Phone: Comment on above: Expected: 11/03/2022 , Expires: 11/03/2023 Start: 07-23-2022 Colonoscopy COLONOSCOPY [facility] Start: 07-23-2022 COLORECTAL CANCER SCREENING COLORECTAL CANCER SCREENING [facility] Start: 07-23-2022 Screening for malign ant neoplasm of colon [facility] Start: 07-15-2022 Influenza vaccination INFLUENZA (#1) [facility] Start: 04-29-2022 COVID-19 VACCINE (6 - Booster for Pfizer series) COVID-19 VACCINE (6 - Booster for Pfizer series) [facility] Start: 01-04-2022 COVID-19 VACCINE (5 - Booster for Pfizer series) COVID-19 VACCINE (5 - Booster for Pfizer series) [facility] Start: 11-14-2021 DEPRESSION ASSESSMENT DEPRESSION ASS ESSMENT [facility] Start: 11-04-2021 Creatinine measurement [facility] Start: 11-04-2021 Potassium monitoring Potassium monit oring Drug Response Dx Start: 11-02-2021 HEMOGLOBIN/HEMATOCRIT HEMOGLOBIN/HEM ATOCRIT [facility] Start: 09-18-2021 SERUM CREATININE SERUM CREATININE Cl [facility] Start: 11-09-2020 Influenza vaccination LUNG CANCER SC REENING [facility] Start: 11-09-2020 Screening for malign ant neoplasm of lung Lung Cancer Screening [facility] Start: 08-10-2020 Adult depression screening assessment DEPRESSION SCREENING [facility] Start: 07-15-2020 Influenza vaccination Flu vaccine (# 1) Drug Response Dx Start: 02-21-2020 ANNUAL PCP TEAM [employer]IVER DIPTI DISEASE VISIT ANNUAL PCP TEAM CHRONIC DISEASE VISIT [facility] Start: 07-10-2019 PNEUMOCOCCAL (3 - PP SV23 if available, else PCV20) PNEUMOCOCCAL (3 - PPSV23 if available, else PCV20) [facility] Start: 07-10-2019 PNEUMOCOCCAL (3 - PP SV23 or PCV20) PNEUMOCOCCAL (3 - PPSV23 or PCV20) [facility] Start: 07-10-2019 Pneumococcal vaccination Pneum ococcal Vaccine (3 - PPSV23 or PCV20) [facility] Start: 09-04-2018 Pneumococcal vaccination Pneum ococcal Vaccine (3 of 3 - PPSV23 or PCV20) [facility] Start: 08-16-2014 TWO PNEUMOVAX 5 YEAR S APART PRIOR TO AGE 65 (#2) TWO PNEUMOVAX 5 YEARS APART PRIOR TO AGE 65 (#2) [facility] Start: 2013 SHINGRIX VACCINE (1 of 2) SHINGRIX VACCINE (1 of 2) [facility] Start: 2008 COLOGUARD (FIT-DNA) COLOGUARD (FIT-D NA) [facility] Start: [address] COLONOGRAPHY [facility] Start: 2008 FECAL OCCULT BLOOD FECAL OCCULT BLOO D [facility] Start: 2008 Screening for malign ant neoplasm of colon [facility] Start: 2008 SIGMOIDOSCOPY SIGMOIDOSCOPY [facility] Start: 1982 SHINGRIX VACCINE (1 of 2) SHINGRIX VACCINE (1 of 2) [facility] Start: 1982 Urine microalbumin profile [facility] Start: 1981 Annual PCP Team Broth Setter dipti Disease Visit Annual PCP Team Chronic Disease Visit [facility] Start: 1981 Anxiety Screening Anxiety Screening [facility] Start: 1981 BP CONTROLLED (<130/80) BP CONTROLLE D (<130/80) [facility] Start: 1981 Depression Screening [facility]ing [facility] System CBC Auto Differential CBC Auto D ifferential Lab Routine Daily until discontinued starting 11/03/2020, 2 completed [facility] [place] Comment on above: Daily until disconti nued starting 11/03/2020, 2 completed End: 12-19-2024 CBC W Auto Differential panel - Blood CBC + DIFF Lab Routine Stage 3b chronic kidney disease (HCC) 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) Once per month for 13 Occurrences starting 12/20/2023 until 12/19/2024, 1 completed [facility] Work Phone: Comment on above: Once per month for 1 3 Occurrences starting 12/20/2023 until 12/19/2024, 1 completed End: 05-23-2026 CBC W Auto Differential panel - Blood COMPLETE BLOOD COUNT AND DIFFERENTIAL Lab Routine 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) Every 2 months for 7 Occurrences starting 05/23/2025 until 05/23/2026 [facility] Comment on above: Every 2 months for 7 Occurrences starting 05/23/2025 until 05/23/2026 End: 12-19-2024 Comprehensive metabolic 2000 panel - Serum or Plasma COMP METABOLIC PANEL Lab Routine Stage 3b chronic kidney disease (HCC) 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) Once per month for 13 Occurrences starting 12/20/2023 until 12/19/2024, 1 completed [facility] Work Phone: Comment on above: Once per month for 1 3 Occurrences starting 12/20/2023 until 12/19/2024, 1 completed End: 05-23-2026 Comprehensive metabolic 2000 panel - Serum or Plasma COMPREHENSIVE METABOLIC PANEL Lab Routine 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) Every 2 months for 7 Occurrences starting 05/23/2025 until 05/23/2026 [facility] Work Phone: Comment on above: Every 2 months for 7 Occurrences starting 05/23/2025 until 05/23/2026 Comprehensive Metabo lic Panel w/ Reflex to MG Comprehensive Metabolic Panel w/ Reflex to MG Lab Routine Daily until discontinued starting 10/28/2020, [facility] Comment on above: Daily until disconti nued starting 10/28/2020, 7 completed Nasal Cannula Oxygen Nasal Cannu la Oxygen Respiratory Care Routine Daily until discontinued starting 10/28/2020 [facility] Comment on above: Daily until disconti nued starting 10/28/2020 Nebulizer therapy HHN Treatment Respiratory Care Routine 0600, 1000, 1400, 1800, 2200 until discontinued starting 10/30/2020 [facility] Comment on above: 0600, 1000, 1400, 18 00, 2200 until discontinued starting 10/30/2020 Oxygen therapy [[facility] Data Set] Initiate Oxygen Therapy Protocol Respiratory Care Routine Daily until discontinued starting 10/28/2020 [facility] Comment on above: Daily until disconti nued starting 10/28/2020 End: 12-19-2024 Phosphate [Mass/volume] in Serum or Plasma PHOSPHORUS INORGANIC Lab Routine Stage 3b chronic kidney disease (HCC) 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) Once per month for 13 Occurrences starting 12/20/2023 until 12/19/2024, 1 completed [facility] Work Phone: Comment on above: Once per month for 1 3 Occurrences starting 12/20/2023 until 12/19/2024, 1 completed End: 05-23-2026 Phosphate [Mass/volume] in Serum or Plasma PHOSPHORUS INORGANIC Lab Routine 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) Every 2 months for 7 Occurrences starting 05/23/2025 until 05/23/2026 [facility] Comment on above: Every 2 months for 7 Occurrences starting 05/23/2025 until 05/23/2026 End: 12-19-2024 Protein/Creatinine [Mass Ratio] in Urine PROTEIN CREATININE RATIO Lab Routine 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) Once per month for 13 Occurrences starting 12/20/2023 until 12/19/2024 [facility] Work Phone: Comment on above: Once per month for 1 3 Occurrences starting 12/20/2023 until 12/19/2024 UA DIP, URINE (POC) UA DIP, URIN E (POC) Lab Routine Screening for genitourinary condition 1 Occurrences starting 11/20/2024 [facility] Work Phone: Comment on above: 1 Occurrences starti ng 11/20/2024 UA DIP, URINE (POC) UA DIP, URIN E (POC) Lab Routine Screening for genitourinary condition 1 Occurrences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 Arteritis, unspecified [facility]* Diagnosis Rheumatoid arthritis involving both hands 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 rheumatoid factor (HCC) Chronic pain of right knee [facility]* Diagnosis Screening for genitourinary condition Screening for other and unspecified genitourinary condition [facility]* Diagnosis Rheumatoid arthritis involving both hands 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 rheumatoid factor (HCC)- Primary [facility]* Diagnosis 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 [facility]* Diagnosis 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 [facility] Diagnosis Rheumatoid arthritis involving both hands 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 rheumatoid factor (HCC)- Primary 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) [facility]* Diagnosis 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 Stage 3b chronic kidney disease (HCC) Benign hypertension with chronic kidney disease [facility]* Diagnosis Screening for genitourinary condition Screening for other and unspecified genitourinary condition [facility] Diagnosis 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 [facility] Diagnosis Vasculitis (HCC)- Primary Arteritis, unspecified Stage 3b chronic kidney disease (HCC) 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) Benign hypertension with chronic kidney disease [facility] Diagnosis Granulomatosis with polyangiitis with renal [...] chronic kidney disease documented in this encounter [facility] note* Diagnosis Granulomatosis with polyangiitis with [...] unspecified genitourinary condition documented in this encounter [facility] note* Diagnosis Granulomatosis with polyangiitis with [...] involvement (HCC)- Primary documented in this encounter [facility] note* Diagnosis Granulomatosis with polyangiitis with [...] therapy (HCC) (HCC) documented in this encounter [facility] note* Diagnosis Granulomatosis with polyangiitis with [...] unspecified genitourinary condition documented in this encounter [facility] note* Diagnosis Granulomatosis with polyangiitis with [...] involvement (HCC)- Primary documented in this encounter [facility] note* Diagnosis Granulomatosis with polyangiitis with [...] involvement (HCC)- Primary documented in this encounter [facility] note* Diagnosis Granulomatosis with polyangiitis with [...] kidney disease (HCC) documented in this encounter [facility] note* Diagnosis Granulomatosis with polyangiitis with [...] unspecified genitourinary condition documented in this encounter [facility] for referral (narrative)* Diagnostic Procedure Only (Routine) - Closed Specialty Diagnoses / Procedures Referred By Contac t Referred To Contact XR IMAGING Diagnoses Chronic pain of right knee Procedures XR KNEE LIMITED 2V AP/LAT RIGHT RADIOLOGIC EXAMINATION KNEE 1/2 VIEWS Luz Daniel MD [address] [address] Xr Imaging Referral ID Status Reason Start Date Expiration Date V isits Requested Visits Authorized [id number] Closed Auto-Generate d Referral 02/26/2022 03/28/2023 1 1 * Diagnostic Procedure Only (Routine) - Closed Specialty Diagnoses / Procedures Referred By Contac t Referred To Contact XR IMAGING Diagnoses Rheumatoid arthritis involving both hands 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 rheumatoid factor (HCC) Procedures XR FOOT GENERAL 3V AP/LAT/OBL RIGHT RADEX FOOT COMPLETE MINIMUM 3 VIEWS Luz Daniel MD [address] [address] Xr Imaging Referral ID Status Reason Start Date Expiration Date V isits Requested Visits Authorized [id number] Closed Auto-Generate d Referral 02/26/2022 03/28/2023 1 1 * Diagnostic Procedure Only (Routine) - Closed Specialty Diagnoses / Procedures Referred By Contac t Referred To Contact XR IMAGING Diagnoses Rheumatoid arthritis involving both hands 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 rheumatoid factor (HCC) Procedures XR FOOT GENERAL 3V AP/LAT/OBL LEFT RADEX FOOT COMPLETE MINIMUM 3 VIEWS Luz Daniel MD [address] [place] [address] Xr Imaging Referral ID Status Reason Start Date Expiration Date V isits Requested Visits Authorized [id number] Closed Auto-Generate d Referral 02/26/2022 03/28/2023 1 1 * Diagnostic Procedure Only (Routine) - Closed Specialty Diagnoses / Procedures Referred By Contac t Referred To Contact XR IMAGING Diagnoses Rheumatoid arthritis involving both hands 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 rheumatoid factor (HCC) Procedures XR HAND GENERAL 3V PA/LAT/OBL RIGHT RADEX HAND MINIMUM 3 VIEWS Luz Daniel MD [address] [place] [address] Xr Imaging Referral ID Status Reason Start Date Expiration Date V isits Requested Visits Authorized [id number] Closed Auto-Generate d Referral 02/26/2022 03/28/2023 1 1 * Diagnostic Procedure Only (Routine) - Closed Specialty Diagnoses / Procedures Referred By Contac t Referred To Contact XR IMAGING Diagnoses Rheumatoid arthritis involving both hands 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 rheumatoid factor (HCC) Procedures XR HAND GENERAL 3V PA/LAT/OBL LEFT RADEX HAND MINIMUM 3 VIEWS Luz Daniel MD [address] [address] Xr Imaging Referral ID Status Reason Start Date Expiration Date V isits Requested Visits Authorized [id number] Closed Auto-Generate d Referral 02/26/2022 03/28/2023 1 1 [facility])No reason for referral information availableWKet[facility] Work Phone: Reason for visit Narrative* [place] Prior Authorization (Routine) - Authorized Specialty Diagnoses / Procedures Referred By Contac t Referred To Contact Diagnoses 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) Procedures INJ RUXIENCE, 10 MG Anthony Olivares MD [address] [place] [address] Phone: tel: fax: Anthony Olivares MD [address] [place] [address] Phone: tel: fax: Referral ID Status Reason Start Date Expiration Date V isits Requested Visits Authorized [id number] Authorized 01/30/2025 01/31/2026 2 2 [facility] Summary Purpose Family History No Family [...] No March 02, 2019 1:12pm Power of Gang Bore Operator No March 02 1:12pm Documents on File Type Date Recorded Patient Long Term Expl anation Advance Directive(s) 08/17/2019 7:16 PM Advance Directive(s) 08/14/2019 9:32 AM Advance Directive(s) 07/23/2019 12:21 PM Advance Directive(s) 01/05/2019 9:49 AM Advance Directive(s) 06/12/2018 10:01 AM Advance Directive(s) 08/24/2016 10:32 PM Advance Directive(s) 08/11/2016 2:31 PM Documents on File Type Date Recorded Patient Long Term Expl anation Advance Directive(s) 08/17/2019 7:16 PM Advance Directive(s) 08/14/2019 9:32 AM Advance Directive(s) 07/23/2019 12:21 PM Advance Directive(s) 01/05/2019 9:49 AM Advance Directive(s) 06/12/2018 10:01 AM Advance Directive(s) 08/24/2016 10:32 PM Advance Directive(s) 08/11/2016 2:31 PM Advance Directive Response Recorded Date/ Time Advance Directives No July 12:38am Living Will No March 02, 2019 12:12pm Power of Gang Bore Operator No March 02 12:12pm Advance Directive Response [...] with shortness of breath and hypoxia from [facility]. He had a positive COVID19 test (more [...] 10/28/20 0000 -- -- -- Aminah León [phone] Admitting Physician: Farrukh Diaz MD PCP: No primary care provider on file. Discharging Nurse: [facility] Unit/Room#: 679/1596 Discharging Unit Phone Number: [phone] Emergency Contact: No emergency contact information on [...] Casillas RN 11/05/20 11/12/20 10/14/2020 Documentation in [place] Disease Reporting System of positive COVID - [...] Assisted Dressing Assisted Toileting Independent Feeding Independent Husker Operator Assisted Med Delivery whole Wound Care Documentation [...] Read[facility]: [facility] Address: [address] [place] [address] Dialysis Facility (if applicable) Name: Address: Dialysis Schedule: Phone: Fax: Filterer/Circuit Manager signature: at12:24 PM EST PHYSICIAN SECTION Prognosis: [...] PM EST Report given to Yesenia jiang Hurst. * Amaris Ibrahim RCP - 11/04/2020 12:15 [...] Daniel MD - 11/03/2020 6:05 PM EST [facility]rology Progress Note Subjective/ 55 [...] 600 mg at 11/02/202009 Data/ Recent Labs 11/02/207 11/03/20 0236 WBC 13.0* 15.6* HGB 13.2 [...] in remission from renal perspective. No urgent BIOSTATISTICS DIRECTOR indications. Will follow. [facility] * Farrukh Diaz MD - 11/03/2020 1:09 PM EST Hospitalist Progress Note 11/03/2020 1:09 PM [phone]: Please page ar [phone] for patient care issues. [phone]: Please page [facility] night Hospitalist for any issues. Subjective: Admit [...] of Hospitalist Medicine Inpatient Medical Services PAGER: [phone] * Piyush Daniel MD - 11/02/2020 10:00 PM EST [facility] Progress Note Subjective/ 55 [...] Daily Farrukh Diaz MD 40 mg at 11/02/20809 hydroxychloroquine (PLAQUENIL) tablet 100 mg 100 mg [...] Farrukh Diaz MD 6 mg at 11/02/20 08 QUEtiapine (SEROQUEL XR) extended release tablet 600 mg 600 mg Oral Nightly Farrukh Diaz MD 600 mg at 11/02/202009 Data/ Recent Labs 10/31/2022011/02/207 WBC 9.5 13.0* HGB 12.0* 13.2 HCT [...] remission atleast from renal perspective. No urgent BIOSTATISTICS DIRECTOR indications. Will follow. [facility] * Farrukh Diaz MD - 11/02/2020 3:16 PM EST Hospitalist Progress Note 11/02/2020 3:16 PM [phone]: Please page ar [phone] for patient care issues. [phone]: Please page [facility] Hospitalist for any issues. Subjective: Admit [...] 7 7 9 LIVER PROFILE: Recent Labs 10/31/2022011/01/20 0235 11/02/20 0317 AST 67* 135* 104* ALT 79* 173* [...] of Hospitalist Medicine Inpatient Medical Services PAGER: [phone] * Piyush Daniel MD - 11/01/2020 8:04 PM EST [facility] Progress Note Subjective/ 55 [...] capsule 300 mg 300 mg Oral Nightly Farurkh Diaz MD 300 mg at 10/31/202122 cetirizine [...] mg at 10/31/202122 Data/ Recent Labs 10/31/20 022 WBC 9.5 HGB 12.0* HCT 35.7* MCV [...] remission atleast from renal perspective. No urgent BIOSTATISTICS DIRECTOR indications. Will follow. [facility] * Farrukh Diaz MD - 11/01/2020 3:07 PM EST Hospitalist Progress Note 11/01/2020 3:08 PM [phone]: Please page ar [phone] for patient care issues. [phone]: Please page [facility] night Hospitalist for any issues. Subjective: Admit [...] 8 7 7 LIVER PROFILE: Recent Labs 10/30/2011510/31/2022011/01/20234 AST 67* 67* 135* ALT 67* 79* [...] of Hospitalist Medicine Inpatient Medical Services PAGER: [phone] * Mia Noyola RCP - 11/01/2020 12:00 [...] EST Hospitalist Progress Note 11/01/2020 11:33 AM [phone]: Please page ar [phone] for patient care issues. [phone]: Please page [facility] night Hospitalist for any issues. Subjective: Admit [...] 7 7 LIVER PROFILE: Recent Labs 10/30/20 01110/31/2022011/01/20 023 AST 67* 67* 135* ALT 67* 79* [...] of Hospitalist Medicine Inpatient Medical Services PAGER: [phone] * Bakari Hdz MD - 10/31/2020 9:35 AM EST [facility] Progress Note Subjective/ 55 [...] solution 1 ampule 1 ampule Inhalation Q4H GA Farrukh Diaz MD 1 ampule at 10/30/207 [...] Farrukh Diaz MD 200 mg at 10/30/20 104 lithium capsule 300 mg 300 mg Oral [...] to restart home lasix dose today since creyuko improvinig Continue to hold Losartan. No changes needed to immunosuppressive therapy. May need to institute the antibiotic 3x/week the one he was on outpatient. 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 D/w [facility]. No urgent BIOSTATISTICS DIRECTOR indications. Will follow. [facility] * Farrukh Diaz MD - 10/30/2020 3:50 PM EST Hospitalist Progress Note 10/30/2020 3:50 PM [phone]: Please page ar [phone] for patient care issues. [phone]: Please page [facility] night Hospitalist for any issues. Subjective: Admit [...] NEGATIVE: No targets were detected by the [employer] (PRIMP) Upper Respiratory Pathogens PCR Panel. _ Expected Result: Not Detected The [employer] Upper Respiratory Pathogens PCR Panel can detect [...] management decisions. This assay was developed by [employer] and distributed under an Emergency Use Authorization (EUA) granted by the FDA for the qualitative detection of SARS-CoV-2 nucleic acid. Provider and patient fact sheets can be found at https://www.fda. gov/media/128555/download and https://www.fda.gov/media/245206/download. Assessment / Plan 1. Acute hypoxic respiratory [...] of Hospitalist Medicine Inpatient Medical Services PAGER: [phone] * Bakari Hdz MD - 10/30/2020 10:18 AM EST [facility] Progress Note Subjective/ 55 [...] day Farrukh Diaz MD5,000 Units at 10/30/20 044 sodium chloride flush 0.9 % injection 10 [...] 10 mg 10 mg Oral TID PRN Farrkuh Diaz MD 10 mg at 10/28/202049 famotidine [...] 3 mg 3 mg Oral Nightly Farrukh Daiz MD 3 mg at 10/29/202010 metoprolol succinate [...] from renal perspective. D/w IMS. No urgent BIOSTATISTICS DIRECTOR indications. Will follow. [facility] * Jeanie Samuel - 10/30/2020 9:42 AM EST Nutrition rescreen completed. Patient assigned a level 1. * Farrukh Diaz MD - 10/29/2020 5:56 PM EST Hospitalist Progress Note 10/29/2020 5:56 PM [phone]: Please page ar [phone] for patient care issues. [phone]: Please page [facility] night Hospitalist for any issues. Subjective: Admit [...] NEGATIVE: No targets were detected by the [employer] (PRIMP) Upper Respiratory Pathogens PCR Panel. _ Expected Result: Not Detected The [employer] (PRIMP) Upper Respiratory Pathogens PCR Panel can detect [...] management decisions. This assay was developed by [employer] and distributed under an Emergency Use Authorization (EUA) granted by the FDA for the qualitative detection of SARS-CoV-2 nucleic acid. Provider and patient fact sheets can be found at https://www.fda. gov/media/593525/download and https://www.fda.gov/media/898240/download. Assessment / Plan 1. Acute hypoxic respiratory [...] of Hospitalist Medicine Inpatient Medical Services PAGER: [phone] * Shirley Casillas RN - 10/29/2020 10:49 AM EST Documentation in [place] disease Reporting System: * Farrukh Diaz MD - 10/29/2020 9:58 AM EST Patient unable to get CTA chest due to DONNA - will hydrate and if able, will get it at a later time. * Irena Land RN - 10/29/2020 12:48 AM EST Patient moved into private bed [address] Mosley. Patients COVID test came back negative. Dr. Pro nursing supervisor blast furnace made aware. documented in this encounter Assessments [...] Date LONG TERM LAB WORK September 27 5:00am LONG TERM LAB WORK November 15, [...] skin eruption Procedures CONSULT TO DERMATOLOGY OFFICE/OUTPATIENT [facility] 60 MINUTES Dorota Smith MD [address] [facility] [address] [place] [address] Referral ID Status Reason Start Date Expiration Date Visits Requested Visits Authorized [id number] Authorized PCP Requested Referral 09/14/2024 09/14/2025 1 1 Additional Source Comments INFORMATION SOURCE (unrecogn ized section and content) DATE CREATED AUTHOR 06/07/2018 [facility] DATE CREATED AUTHOR AUTHOR'S ORGANIZ ATION 04/02/2019 [facility] ([place], [place]) DATE CREATED AUTHOR AUTHOR'S ORGANIZ ATION 03/30/2020 [facility] DATE CREATED AUTHOR AUTHOR'S ORGANIZ ATION 08/05/2020 [facility] DATE CREATED AUTHOR AUTHOR'S ORGANIZ ATION 11/21/2020 [facility] DATE CREATED AUTHOR AUTHOR'S ORGANIZ ATION 09/18/2024 [facility] DATE CREATED AUTHOR AUTHOR'S ORGANIZ ATION 02/27/2025 [facility] DATE CREATED AUTHOR AUTHOR'S ORGANIZ ATION 06/11/2025 [facility] DATE CREATED AUTHOR AUTHOR'S ORGANIZ ATION 08/08/[address] [facility] (unrecognized sect ion and content) No [...] 10 MG IV RITUXIMAB Anthony Olivares MD [address] [place] [address] 1, Kidney Med Main Infusion Chair [address] [facility] [place] [address] Referral ID Status Reason Start Date Expiration Date V isits Requested Visits Authorized [id number] Authorized 03/31/2022 11/13/2022 99 99 Reason Comments Shortness of Breath Reason Comments Follow Up Reason Comments Infusion iv rituximab Reason Comments Radio Main J1 Specialty Diagnoses / Procedures Referred By Contac t Referred To Contact XR IMAGING Diagnoses Chronic pain of right knee Procedures XR KNEE LIMITED 2V AP/LAT RIGHT RADIOLOGIC EXAMINATION KNEE 1/2 VIEWS Luz Daniel MD [address] [facility] [address] [place] [address] Xr Imaging Referral ID Status Reason Start Date Expiration Date V isits Requested Visits Authorized [id number] Closed Auto-Generate d Referral 02/26/2022 03/28/2023 1 1 Reason Comments Rheumatoid Arthritis Reason Comments Follow Up RA- hands, stiff and swollen Reason Comments NO SHOW Reason Comments Patient Update Reason Comments Appointment Specialty Diagnoses / Procedures Referred By Contac t Referred To Contact Diagnoses 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) Procedures INJ RUXIENCE, 10 MG Anthony Olivares MD [address] [place] [address] Infusion [facility] [address] [place] [address] Referral ID Status Reason Start Date Expiration Date V isits Requested Visits Authorized [id number] Authorized 12/27/2023 12/29/2024 24 24 Reason Comments [...] or prosecute any alcohol or drug abuse patient.[facility] the event this information is protected by the Federal Confidentiality of Alcohol and Drug Abuse Patient Records regulations: The Federal rules restrict any use of the information to criminally investigate or prosecute any alcohol or drug abuse patient.[facility] System[facility] the event this information is protected by the Federal Confidentiality of Alcohol and Drug Abuse Patient Records regulations: The Federal rules restrict any use of the information to criminally investigate or prosecute any alcohol or drug abuse patient.[facility] SystemIn the event this information is protected by the Federal Confidentiality of Alcohol and Drug Abuse Patient Records regulations: The Federal rules restrict any use of the information to criminally investigate or prosecute any alcohol or drug abuse patient.[facility] SystemIn the event this information is protected by the Federal Confidentiality of Alcohol and Drug Abuse Patient Records regulations: The Federal rules restrict any use of the information to criminally investigate or prosecute any alcohol or drug abuse patient.[facility] System[facility] the event this information is protected by the Federal Confidentiality of Alcohol and Drug Abuse Patient Records regulations: The Federal rules restrict any use of the information to criminally investigate or prosecute any alcohol or drug abuse patient.[facility] System[facility] the event this information is protected by the Federal Confidentiality of Alcohol and Drug Abuse Patient Records regulations: The Federal rules restrict any use of the information to criminally investigate or prosecute any alcohol or drug abuse patient.[facility] System[facility] the event this information is protected by the Federal Confidentiality of Alcohol and Drug Abuse Patient Records regulations: The Federal rules restrict any use of the information to criminally investigate or prosecute any alcohol or drug abuse patient.[facility] SystemIn the event this information is protected by the Federal Confidentiality of Alcohol and Drug Abuse Patient Records regulations: The Federal rules restrict any use of the information to criminally investigate or prosecute any alcohol or drug abuse patient.[facility] SystemIn the event this information is protected by the Federal Confidentiality of Alcohol and Drug Abuse Patient Records regulations: The Federal rules restrict any use of the information to criminally investigate or prosecute any alcohol or drug abuse patient.[facility] SystemIn the event this information is protected by the Federal Confidentiality of Alcohol and Drug Abuse Patient Records regulations: The Federal rules restrict any use of the information to criminally investigate or prosecute any alcohol or drug abuse patient.[facility] SystemIn the event this information is protected by the Federal Confidentiality of Alcohol and Drug Abuse Patient Records regulations: The Federal rules restrict any use of the information to criminally investigate or prosecute any alcohol or drug abuse patient.[facility] System[facility] the event this information is protected by the Federal Confidentiality of Alcohol and Drug Abuse Patient Records regulations: The Federal rules restrict any use of the information to criminally investigate or prosecute any alcohol or drug abuse patient.[facility] SystemIn the event this information is protected by the Federal Confidentiality of Alcohol and Drug Abuse Patient Records regulations: The Federal rules restrict any use of the information to criminally investigate or prosecute any alcohol or drug abuse patient.[facility] SystemIn the event this information is protected by the Federal Confidentiality of Alcohol and Drug Abuse Patient Records regulations: The Federal rules restrict any use of the information to criminally investigate or prosecute any alcohol or drug abuse patient.[facility] SystemIn the event this information is protected by the Federal Confidentiality of Alcohol and Drug Abuse Patient Records regulations: The Federal rules restrict any use of the information to criminally investigate or prosecute any alcohol or drug abuse patient.[facility] SystemIn the event this information is protected by the Federal Confidentiality of Alcohol and Drug Abuse Patient Records regulations: The Federal rules restrict any use of the information to criminally investigate or prosecute any alcohol or drug abuse patient.[facility] SystemIn the event this information is protected by the Federal Confidentiality of Alcohol and Drug Abuse Patient Records regulations: The Federal rules restrict any use of the information to criminally investigate or prosecute any alcohol or drug abuse patient.[facility] SystemIn the event this information is protected by the Federal Confidentiality of Alcohol and Drug Abuse Patient Records regulations: The Federal rules restrict any use of the information to criminally investigate or prosecute any alcohol or drug abuse patient.[facility] SystemIn the event this information is protected by the Federal Confidentiality of Alcohol and Drug Abuse Patient Records regulations: The Federal rules restrict any use of the information to criminally investigate or prosecute any alcohol or drug abuse patient.[facility] SystemIn the event this information is protected by the Federal Confidentiality of Alcohol and Drug Abuse Patient Records regulations: The Federal rules restrict any use of the information to criminally investigate or prosecute any alcohol or drug abuse patient.[facility] SystemIn the event this information is protected by the Federal Confidentiality of Alcohol and Drug Abuse Patient Records regulations: The Federal rules restrict any use of the information to criminally investigate or prosecute any alcohol or drug abuse patient.[facility] SystemIn the event this information is protected by the Federal Confidentiality of Alcohol and Drug Abuse Patient Records regulations: The Federal rules restrict any use of the information to criminally investigate or prosecute any alcohol or drug abuse patient.[facility] SystemIn the event this information is protected by the Federal Confidentiality of Alcohol and Drug Abuse Patient Records regulations: The Federal rules restrict any use of the information to criminally investigate or prosecute any alcohol or drug abuse patient.[facility] SystemIn the event this information is protected by the Federal Confidentiality of Alcohol and Drug Abuse Patient Records regulations: The Federal rules restrict any use of the information to criminally investigate or prosecute any alcohol or drug abuse patient.[facility] SystemIn the event this information is protected by the Federal Confidentiality of Alcohol and Drug Abuse Patient Records regulations: The Federal rules restrict any use of the information to criminally investigate or prosecute any alcohol or drug abuse patient.[facility] SystemIn the event this information is protected by the Federal Confidentiality of Alcohol and Drug Abuse Patient Records regulations: The Federal rules restrict any use of the information to criminally investigate or prosecute any alcohol or drug abuse patient.[facility] SystemIn the event this information is protected by the Federal Confidentiality of Alcohol and Drug Abuse Patient Records regulations: The Federal rules restrict any use of the information to criminally investigate or prosecute any alcohol or drug abuse patient.[facility] SystemIn the event this information is protected by the Federal Confidentiality of Alcohol and Drug Abuse Patient Records regulations: The Federal rules restrict any use of the information to criminally investigate or prosecute any alcohol or drug abuse patient.[facility] SystemIn the event this information is protected by the Federal Confidentiality of Alcohol and Drug Abuse Patient Records regulations: The Federal rules restrict any use of the information to criminally investigate or prosecute any alcohol or drug abuse patient.[facility] SystemIn the event this information is protected by the Federal Confidentiality of Alcohol and Drug Abuse Patient Records regulations: The Federal rules restrict any use of the information to criminally investigate or prosecute any alcohol or drug abuse patient.[facility] SystemIn the event this information is protected by the Federal Confidentiality of Alcohol and Drug Abuse Patient Records regulations: The Federal rules restrict any use of the information to criminally investigate or prosecute any alcohol or drug abuse patient.[facility] SystemIn the event this information is protected by the Federal Confidentiality of Alcohol and Drug Abuse Patient Records regulations: The Federal rules restrict any use of the information to criminally investigate or prosecute any alcohol or drug abuse patient.[facility] SystemIn the event this information is protected by the Federal Confidentiality of Alcohol and Drug Abuse Patient Records regulations: The Federal rules restrict any use of the information to criminally investigate or prosecute any alcohol or drug abuse patient.[facility] SystemIn the event this information is protected by the Federal Confidentiality of Alcohol and Drug Abuse Patient Records regulations: The Federal rules restrict any use of the information to criminally investigate or prosecute any alcohol or drug abuse patient.[facility] Care Teams (unrecognized sec tion and content) Tank Setter Helper Relationship Specialty Start Date End Date Elgin Bal MD [address] [place], [place] [address] PCP - General Family Practice 12/25/12 Anthony Olivares MD [address] [place] [address] Transportation Coordinator Nephrology 03/19/21 Anthony Olivares MD [address] [place] [address] Primary Staff Physician Nephrology 12/10/21 Tank Setter Helper Relationship Specialty Start Date End Date Elgin Bal MD [address] [place] [address] PCP - General Family Practice 12/25/12 Anthony Olivares MD [address] [place] [address] Transportation Coordinator Nephrology 03/19/21 Anthony Olivares MD [address] [place] [address] Primary Staff Physician Nephrology 12/10/21 Tank Setter Helper Relationship Specialty Start Date End Date Elgin Bal MD [address] [place] [address] PCP - General Family Practice 12/25/12 Anthony Olivares MD [address] [place] [address] Transportation Coordinator Nephrology 03/19/21 Anthony Olivares MD [address] [place] [address] Primary Staff Physician Nephrology 12/10/21 Tank Setter Helper Relationship Specialty Start Date End Date Elgin Bal MD [address] [place] [address] PCP - General Family Practice 12/25/12 Anthony Olivares MD [address] [place] [address] Transportation Coordinator Nephrology 03/19/21 Anthony Olivares MD [address] [place] [address] Primary Staff Physician Nephrology 12/10/21 Tank Setter Helper Relationship Specialty Start Date End Date Elgin Bal MD [address] [place] [address] PCP - General Family Practice 12/25/12 Anthony Olivares MD [address] [place] [address] Transportation Coordinator Nephrology 03/19/21 Anthony Olivares MD [address] [place] [address] Primary Staff Physician Nephrology 12/10/21 Tank Setter Helper Relationship Specialty Start Date End Date Elgin Bal MD [address] [place] [address] PCP - General Family Practice 12/25/12 Anthony Olivares MD [address] [place] [address] Transportation Coordinator Nephrology 03/19/21 Anthony Olivares MD [address] [place] [address] Primary Staff Physician Nephrology 12/10/21 Tank Setter Helper Relationship Specialty Start Date End Date Elgin Bal MD [address] [place] [address] PCP - General Family Medicine 12/25/12 Anthony Olivares MD [address] [place] [address] Transportation Coordinator Nephrology 03/19/21 Anthony Olivares MD [address] [place] [address] Primary Staff Physician Nephrology 12/10/21 Tank Setter Helper Relationship Specialty Start Date End Date Elgin Bal MD [address] [place] [address] PCP - General Family Medicine 12/25/12 Anthony Oilvares MD [address] [facility] [place] [address] Transportation Coordinator Nephrology 03/19/21 Anthony Olivares MD [address] [place] [address] Primary Staff Physician Nephrology 12/10/21 Tank Setter Helper Relationship Specialty Start Date End Date Elgin Bal MD [address] [place] [address] PCP - General Family Medicine 12/25/12 Anthony Olivares MD [address] [facility] [facility] [place] [address] Transportation Coordinator Nephrology 03/19/21 Anthony Olivares MD [address] [facility] [place] [address] Primary Staff Physician Nephrology 12/10/21 Tank Setter Helper Relationship Specialty Start Date End Date Elgin Bal MD [address] [place] [address] PCP - General Family Medicine 12/25/12 Anthony Olivares MD [address] [place] [address] Transportation Coordinator Nephrology 03/19/21 Anthony Olivares MD [address] [facility] [place] [address] Primary Staff Physician Nephrology 12/10/21 Team Status: [...] Status: Inactive Member Role Status Dates Dr. Elgni Bal MD Primary Care Provider Active Adam [...] CHANDLER Attending Provider, Referring Prov ider Active Tank Setter Helper Relationship Specialty Start Date End Date Elgin Bal MD [address] [place] [address] PCP - General Family Medicine 12/25/12 Anthony Olivares MD [address] [place] [address] Transportation Coordinator Nephrology 03/19/21 Anthony Olivares MD [address] [facility] [place] [address] Primary Staff Physician Nephrology 12/10/21 Team Status: Inactive Member Role Status Dates Dr. Elgin Bal MD Primary Care Provider Active Dr. Alfredo Phipps MD Attending Provider Active Team Status: Active Member Role Status Dates Dr. Elgin Bal MD Primary Care Provider Active Adam CHANDLER Attending Provider, [place] Active Tank Setter Helper Relationship Specialty Start Date End Date Elgin Bal MD [address] [place] [address] PCP - General Family Medicine 12/25/12 Anthony Olivares MD [address] [place], [place] [id number] Transportation Coordinator Nephrology 03/19/21 Anthony Olivares MD [address] [place] [address] Primary Staff Physician Nephrology 12/10/21 Tank Setter Helper Relationship Specialty Start Date End Date Elgin Bal MD [address] [place] [address] PCP - General Family Medicine 12/25/12 Anthony Olivares MD [address] [place] [address] Transportation Coordinator Nephrology 03/19/21 Anthony Olivares MD [address] [place] [address] Primary Staff Physician Nephrology 12/10/21 Tank Setter Helper Relationship Specialty Start Date End Date Alfredo Phipps MD [address] [address] PCP - General Internal Medicine 10/19/23 Anthony Olivares MD [address] [place] [address] Transportation Coordinator Nephrology 03/19/21 Anthony Olivares MD [address] [facility] [place] [address] Primary Staff Physician Nephrology 12/10/21 Tank Setter Helper Relationship Specialty Start Date End Date Alfredo Phipps MD [address] [place] [address] PCP - General Internal Medicine 10/19/23 Anthony Olivares MD [address] [place] [address] Transportation Coordinator Nephrology 03/19/21 Anthony Olivares MD [address] [place] [address] Primary Staff Physician Nephrology 12/10/21 Tank Setter Helper Relationship Specialty Start Date End Date Alfredo Phipps MD [address] [facility] [address] [place] [address] PCP - General Internal Medicine 10/19/23 Anthony Olivares MD [address] [place] [address] Transportation Coordinator Nephrology 03/19/21 Anthony Olivares MD [address] [place] [address] Primary Staff Physician Nephrology 12/10/21 Tank Setter Helper Relationship Specialty Start Date End Date Alfredo Phipps MD [address] [facility] [address] [place] [address] PCP - General Internal Medicine 10/19/23 Anthony Olivares MD [address] [place] [address] Transportation Coordinator Nephrology 03/19/21 Anthony Olivares MD [address] [place] [address] Primary Staff Physician Nephrology 12/10/21 Tank Setter Helper Relationship Specialty Start Date End Date Alfredo Phipps MD [address] [facility] [address] [place] [address] PCP - General Internal Medicine 10/19/23 Anthony Olivares MD [address] [place] [address] Transportation Coordinator Nephrology 03/19/21 Anthony Olivares MD [address] [place] [address] Primary Staff Physician Nephrology 12/10/21 Tank Setter Helper Relationship Specialty Start Date End Date Alfredo Phipps MD [address] [facility] [address] [place] [address] PCP - General Internal Medicine 10/19/23 Anthony Olivares MD [address] [place] [address] Transportation Coordinator Nephrology 03/19/21 Anthony Olivares MD [address] [place] [address] Primary Staff Physician Nephrology 12/10/21 Tank Setter Helper Relationship Specialty Start Date End Date Alfredo Phipps MD [address] [facility] [address] [place] [address] PCP - General Internal Medicine 10/19/23 Anthony Olivares MD [address] [place] [address] Transportation Coordinator Nephrology 03/19/21 Anthony Olivares MD [address] [place] [address] Primary Staff Physician Nephrology 12/10/21 Tank Setter Helper Relationship Specialty Start Date End Date Alfredo Phipps MD [address] [facility] [address] [place] [address] PCP - General Internal Medicine 10/19/23 Anthony Olivares MD [address] [place] [address] Transportation Coordinator Nephrology 03/19/21 Anthony Olivares MD [address] [place] [address] Primary Staff Physician Nephrology 12/10/21 Tank Setter Helper Relationship Specialty Start Date End Date Alfredo Phipps MD [address] [facility] [address] [place] [address] PCP - General Internal Medicine 10/19/23 Anthony Olivares MD [address] [place] [address] Transportation Coordinator Nephrology 03/19/21 Anthony Olivares MD [address] [place] [address] Primary Staff Physician Nephrology 12/10/21 Tank Setter Helper Relationship Specialty Start Date End Date Alfredo Phipps MD [address] [place] [address] PCP - General Internal Medicine 10/19/23 Anthony Olivares MD [address] [place] [address] Transportation Coordinator Nephrology 03/19/21 Anthony Olivares MD [address] [place] [address] Primary Staff Physician Nephrology 12/10/21 Tank Setter Helper Relationship Specialty Start Date End Date Alfredo Phipps MD [address] [place] [address] PCP - General Internal Medicine 10/19/23 Anthony Olivares MD [address] [place] [address] Transportation Coordinator Nephrology 03/19/21 Anthony Olivares MD [address] [place] [address] Primary Staff Physician Nephrology 12/10/21 Tank Setter Helper Relationship Specialty Start Date End Date Alfredo Phipps MD [address] [place] [address] PCP - General Internal Medicine 10/19/23 Anthony Olivares MD [address] [place] [address] Transportation Coordinator Nephrology 03/19/21 Anthony Olivares MD [address] [place] [address] Primary Staff Physician Nephrology 12/10/21 Tank Setter Helper Relationship Specialty Start Date End Date Alfredo Phipps MD [address] [facility] [address] [place] [address] PCP - General Internal Medicine 10/19/23 Anthony Olivares MD [address] [place] [address] Transportation Coordinator Nephrology 03/19/21 Anthony Olivares MD [address] [place] [address] Primary Staff Physician Nephrology 12/10/21 Tank Setter Helper Relationship Specialty Start Date End Date Alfredo Phipps MD [address] [facility] [address] [place] [address] PCP - General Internal Medicine 10/19/23 Anthony Olivares MD [address] [place] [address] Transportation Coordinator Nephrology 03/19/21 Anthony Olivares MD [address] [place], [place] [address] Primary Staff Physician Nephrology 12/10/21 Team Status: [...] 28, 2024 End: December 28, 2024 Adam CHANLDER Attending Provider Active St art: December 28, [...] January 03, 2025 End: January 03, 2025 Adma CHANDLER Attending Provider Active St art: January [...] January 30, 2025 End: January 30, 2025 Tank Setter Helper Relationship Specialty Start Date End Date Alfredo Phipps MD [address] [address] PCP - General Internal Medicine 10/19/23 Anthony Olivares MD [address] [place] [address] Transportation Coordinator Nephrology 03/19/21 Anthony Olivares MD [address] [place] [address] Primary Staff Physician Nephrology 12/10/21 [...] Provider Active St art: May 02, [address] Relationship Specialty Start Date End Date Alfredo Phipps MD [address] [facility] [address] [place] [address] PCP - General Internal Medicine 10/19/23 Anthony Olivares MD [address] [place] [address] Transportation Coordinator Nephrology 03/19/21 Anthony Olivares MD [address] [place] [address] Primary Staff Physician Nephrology 12/10/21 [employer] Relationship Specialty Start Date End Date Alfredo Phipps MD [address] [facility] [address] [place] [address] PCP - General Internal Medicine 10/19/23 Anthony Olivares MD [address] [place] [address] Transportation Coordinator Nephrology 03/19/21 Anthony Olivares MD [address] [place] [address] Primary Staff Physician Nephrology 12/10/21 [employer] Relationship Specialty Start Date End Date Alfredo Phipps MD [address] [facility] [address] [place] [address] PCP - General Internal Medicine 10/19/23 Anthony Olivares MD [address] [place] [address] Transportation Coordinator Nephrology 03/19/21 Anthony Olivares MD [address] [place] [address] Primary Staff Physician Nephrology 12/10/21 Inactive Administered [...] BE BASED ON THE PRIMARY CLINICAL RECORDS. [employer] provides no warranty or guarantee of the accuracy or completeness of information in this document.
--- OUTSIDE RECORDS SUMMARY | 2025-08-09 04:32 | XMS RPT_ITS | CCD ---
Author Organization [facility] Care Team Providers Care Steam Meter Reader Name Role Phone HODA BERNABE MD Admitting [...] MD Unavailable Anthony Olivares MD Unavailable Anthony Olivarse MD Unavailable Alfredo Phipps MD Primary Care Provider Alfredo Phipps MD Primary Care Provider ALFREDO PHIPPS Primary Care Unavaila ble DOROTA SMITH Referring Unavailable DOROTA SMITH Attending Unavailable Mally BROWNING, Dr. Eisenberg Primary Care Provider [phone] Adam Marley Attending Provider Unavailyuko Bal MD, [...] KATSAROS, ALFREDO SPICER Primary Care Unavaila ble [place], [facility] Primary Care Unavailable Gunning RAMESH, Adam Attending Unavailable Wandaning RAMESH, Adam Attending Unavailable Mally, [facility] Primary Care Unavailable Gunning RAMESH, Adam Attending Unavailable Mally, [facility] Primary Care Unavailable Gunning RAMESH, Adam Attending Unavailable Mally, [facility] Primary Care Unavailable [place], [facility] Primary Care Unavailable Gunning RAMESH, Adam Attending Unavailable Wandaning RAMESH, Adam Attending Unavailable [place], [facility] Primary Care Unavailable Gunning OLS, Adam Attending Unavailable [place], [facility] Primary Care Unavailable Gunning OLS, Adam Attending Unavailable Mally, [facility] Primary Care Unavailable Gunning OLS, Adam Attending Unavailable [place], [facility] Primary Care Unavailable Gunning RAMESH, Adam Attending Unavailable [place], [facility] Primary Care Unavailable Katsar[place] RAMESH, Alfredo Attending Unavailable [place], [facility] Primary Care Unavailable Katsaros OLS, Alfredo Attending Unavailable [place], [facility] Primary Care Unavailable Gunning RAMESH, Adam Attending Unavailable [place], [facility] Primary Care Unavailable Katsaros OLS, Alfredo Attending Unavailable [place], [facility] Primary Care Unavailable Katsaros OLS, Alfredo Attending Unavailable Mally, [facility] Primary Care Unavailable [place], [facility] Primary Care Unavailable Gunning OLS, Adam Attending Unavailable Wilnerkksayraeladioa Lasha CHANDLER Attending Unavail able [place], [facility] Primary Care Unavailable [place], [facility] Primary Care Unavailable Katsaros OLS, Alfredo Attending Unavailable Gunning OLS, Adam Attending Unavailable [place], [facility] Primary Care Unavailable Gunning OLS, Adam Attending Unavailable Mally, [facility] Primary Care Unavailable Gunning OLS, Adam Attending Unavailable Mally, [facility] Primary Care Unavailable Katsaros OLS, Peter Attending Unavailable Mally, [facility] Primary Care Unavailable Gunning OLS, Adam Attending Unavailable Mally, [facility] Primary Care Unavailable Gunning OLS, Adam Attending Unavailable [place], [facility] Primary Care Unavailable Katsaros OLS, Peter Attending Unavailable Mally, [facility] Primary Care Unavailable Gunning OLS, Adam Attending Unavailable Mally, [facility] Primary Care Unavailable Gunning OLS, Adam Attending Unavailable Mally, [facility] Primary Care Unavailable Gunning OLS, Adam Attending Unavailable Mally, [facility] Primary Care Unavailable Gunning OLS, Adam Referring Unavailable Gunning OLS, Adam Attending Unavailable [place], [facility] Primary Care Unavailable Katsaros OLS, Peter Attending Unavailable [place], [facility] Primary Care Unavailable Mally, [facility] Primary Care Unavailable Gunning OLS, Adam Attending Unavailable Mally, [facility] Primary Care Unavailable K[place]ar[place] OLS, Peter Attending Unavailable [place], [facility] Primary Care Unavailable Gunning OLS, Adam Attending Unavailable Allergies Allergy Classification Reported Allergen(s) Allergy Type Date of Onset Reaction(s) Facility Anti-Epileptic Agents (1 source) lamoTRIgine Drug Allergy 8 [facility] Work Phone: Bee pollen (1 source) Bee pollen Drug Allergy 0 Other: See [facility] Corticosteroids (1 source) fluticasone Drug Allergy 3 Other: See [facility] Work Phone: OLANZapine (1 source) OLANZapine Drug Allergy 7 [facility] (20 sources) Bee pollen; Translations: [BEE POLLEN] Drug Allergy 0 Other: See [facility] [place], [place] (20 sources) fluticasone Drug Allergy 0 [place] (20 sources) lamoTRIgine; Translations: [LAMOTRIGINE] Drug Allergy 8 [place], [place] (20 sources) OLANZapine; Translations: [OLANZAPINE] Drug Allergy 7 [place] (20 sources) fluticasone; Translations: [FLUTICASONE PROPIONATE] Drug Allergy 3 Other: See Comments [facility] Work Phone: (1 source) fluticasone Drug Allergy 0 [facility] (1 source) lamoTRIgine Drug Allergy 9 [facility] (1 source) OLANZapine Drug Allergy 0 [facility] Medications Current Medications Medication Drug Class(es) [...] th every 8 hours as needed. 500mg [id number] 60 actuat albuterol 0.09 mg/actuat metered dose [...] Start: 02-14-2020 take 1 capsule by mo [facility] once daily Cholecalciferol (Vitamin D3) 2,000 UNIT [...] 20 mg/ml oral suspension (1 source) Uncompetitive K-visosc-Z-aspartate Receptor Antagonist, Sigma-1 Agonist Start: 10-28-2020 take 5 mL by mouth every four hours as needed for cough 5 mL, Oral, EVERY 4 HOURS PRN, Cough, Starting Tue10/28/20 at 1936 docosahexaenoic acid 120 mg / eicosapentaenoic acid 180 mg oral capsule (1 source) take 1 capsule by mouth once daily [place]-3 1000 MG CAPS Take 1 capsule by [...] Active Start: 03-18-2021 [facility] furosemide (LASIX) 40 mg tablet [...] 2020 12:00am take 3 tablets by mo [facility] once daily furosemide (LASIX) 20 [...] Active Start: 03-06-20[address] [facility] once daily lithium carbonate (ESKALITH) 300 mg capsule Take 300 mg by mouth once daily. 03/06/2021 Active Start: 10-28-2020 take 300 mg by mouth once tommy y 300 mg, Oral, NIGHTLY, First dose on Tue10/28/20 at 2100 Maintain adequate fluid and sodium intake Start: 04-02-2018 take 1 tablet by donovan th once daily at bedtime [place] Carbonate 300 MG tablet extended release Active 300 mg PO TWICE A DAY April 02, 2018 12:00am [facility] Comment on above: Take 150 mg by [...] donovan once daily. omega-3 acid ethyl esters (fdc) 1000 mg oral capsule (1 source) Start: 10-28-2020 take 1 capsule by mouth once daily 1 capsule, Oral, DAILY, First dose on Tue10/28/20 at 2000 [place]-3 Fatty Acids-Fish Oil (20 sources) Start: 02-14-2020 [place]-3 Fatty Acids-Fish Oil Active 1 EACH PO DAILY February 14, 2020 10:03am Start: 02-14-2020 [place]-3 Fatty Acids-Fish Oil Active 1 EACH PO DAILY February 13, 2020 11:00pm Start: 02-14-2020 [place]-3 Fatty Acids-Fish Oil Active 1 EACH PO DAILY February 14, 2020 12:00am [place]-3 Fatty Acids-Fish Oil 1 EACH capsule (11 sources) Start: 02-14-2020 [place]-3 Fatty Acids-Fish Oil 1 EACH capsule Active 1 NMA PO DAILY February 14, 2020 12:00am Start: 02-14-2020 [place]-3 Fatty Acids-Fish Oil 1 EACH capsule Active 1 NMA PO DAILY February 13, 2020 11:00pm Naltr-2-FIT-EPA-Fish Oil 1,0 00 mg (120 mg-180 mg) cap (20 sources) take 1 capsule by mouth once daily Ivwdy-2-NRF-EPA-Fish Oil 1,000 mg (120 mg-180 mg) cap Take 1 capsule by mouth once daily. Active take 1 capsule by mouth once berna ly Cpbkz-6-ZAI-EPA-Fish Oil 1,000 mg (120 mg- 180 mg) [...] Substituted for Omeprazole (PRILOSEC). polyethylene glycol 3350 40629 mg powder for oral solution (1 source) [...] 0 Active take 2 tablets by mo vah once daily QUEtiapine (SEROQUEL XR) 300 MG extended release tablet Take 600 mg by mouth nightly 0 Active Comment on above: Take 1 tablet by [facility] daily at bedtime. Take 500 [...] Comment on above: Take [address] [facility] as directed. prior to Rituximab [...] Comment on above: Take [address] [facility] as directed. prior to Rituximab [...] ously as directed. prior to Rituximab infusion. Gslof-0-CMM-EPA-Fish Oil (FISH OIL) 1,000 mg (120 mg-180 mg) cap (6 sources) take 1 capsule by mouth once daily Lbdhy-6-HTE-EPA-Fish Oil (FISH OIL) 1,000 mg (120 mg-180 [...] 03-02-2019 Episodic Other aftercare (3 sources) Other manager terminal (current) drug therapy; Translations: [Other manager terminal (current) drug therapy] Onset: 11-14-2019 Episodic Other [...] Lithiumon 08-02-2025 LI 0.61 mmol/L Normal 0.60-1.20 [facility] Comment on above: Order Comment: 111.2 Performed By: #### L 100.0500, L500.4050, L501.1400 #### [facility] [place], [address] Vitamin D,25 Hydroxyon 07-31 Vitamin D 25-OH 33.6 ng/mL Normal 30-100 [facility] Comment on above: Order Comment: URIC ACID ADDED TO 05/24/25 LABWORK Result Comment: Moriah min D Status Deficiency: <20 ng/mL (50nmol/L) Insufficiency: 20-30 ng/mL (50-75 nmol/L) Sufficiency: 30-100 ng/mL (75-250 nmol/L) Toxicity: >100 ng/mL (>250 nmol/L) Performed By: #### L 100.0500, L500.4050, L501.1400 #### [facility] [address] [place], [address] CBC W/Diff, Automatedon 07-15-2024 Absolute Lymph 1.68 X10 3/uL Normal 0.83-4.51 [facility] Comment on above: Order Comment: URIC ACID ADDED TO 05/24/25 LABWORK Performed By: #### L 100.0500, L500.4050, [id number] #### [facility] [address] [place], [address] Absolute Neut 5.6 X10 3/uL Normal 2.0-7.7 [facility] Comment on above: Order Comment: URIC ACID ADDED TO 05/24/25 LABWORK Performed By: #### L 100.0500, L500.4050, [id number] #### [facility] [address] [place], [address] Basophils/100 WBC (Bld) 1.2 % High 0-1 [facility] Comment on above: Order Comment: URIC ACID ADDED TO 05/24/25 LABWORK Performed By: #### L 100.0500, L500.4050, [id number] #### [facility] [address] [place], [address] Eosinophils/100 WBC (Bld) 4.2 % Normal 0-5 [facility] Comment on above: Order Comment: URIC ACID ADDED TO 05/24/25 LABWORK Performed By: #### L 100.0500, L500.4050, [id number] #### [facility] [address] [place], [address] Erythrocyte distribution width (RBC) [Ratio] 12.6 % Normal 11.6-14.6 [facility] Comment on above: Order Comment: URIC ACID ADDED TO 05/24/25 LABWORK Performed By: #### L 100.0500, L500.4050, [id number] #### [facility] [address] [place], [address] Hematocrit (Bld) [Volume fraction] 38.6 % Low 40-54 [facility] Comment on above: Order Comment: URIC ACID ADDED TO 05/24/25 LABWORK Performed By: #### L 100.0500, L500.4050, [id number] #### [facility] [address] [place], [address] Hemoglobin (Bld) [Mass/Vol] 12.9 g/dL Low 13.0-16.5 [facility] Comment on above: Order Comment: URIC ACID ADDED TO 05/24/25 LABWORK Performed By: #### L 100.0500, L500.4050, [id number] #### [facility] [address] [place], [address] IG% 0.400 Normal 0.0-0.9 [facility] Comment on above: Order Comment: URIC ACID ADDED TO 05/24/25 LABWORK Result Comment: IG% - Immature Granulocytes (promyelocytes, myelocytes and metamyelocytes) > 1% indicates that a LEFT SHIFT is Present. Performed By: #### L 100.0500, L500.4050, L501.1400 #### [facility] [address] [place], [address] Lymphocytes/100 WBC (Bld) 18.7 % Low 19-41 [facility] Comment on above: Order Comment: URIC ACID ADDED TO 05/24/25 LABWORK Performed By: #### L 100.0500, L500.4050, L501.1400 #### [facility] [address] [place], [address] MCH (RBC) [Entitic mass] 30.0 pg Normal 27.0-32.0 [facility] Comment on above: Order Comment: URIC ACID ADDED TO 05/24/25 LABWORK Performed By: #### L 100.0500, L500.4050, L501.1400 #### [facility] [address] [place], [address] MCHC (RBC) [Mass/Vol] 33.4 g/dL Normal 32-36 [facility] Comment on above: Order Comment: URIC ACID ADDED TO 05/24/25 LABWORK Performed By: #### L 100.0500, L500.4050, L501.1400 #### [facility] [address] [place], [address] MCV (RBC) [Entitic vol] 89.8 fL Normal 80-94 [facility] Comment on above: Order Comment: URIC ACID ADDED TO 05/24/25 LABWORK Performed By: #### L 100.0500, L500.4050, L501.1400 #### [facility] [address] [place], [address] Monocytes/100 WBC (Bld) 13.2 % High 0-10 [facility] Comment on above: Order Comment: URIC ACID ADDED TO 05/24/25 LABWORK Performed By: #### L 100.0500, L500.4050, L501.1400 #### [facility] [address] [place], [address] Neutrophils/100 WBC (Bld) 62.3 % Normal 47-70 [facility] Comment on above: Order Comment: URIC ACID ADDED TO 05/24/25 LABWORK Performed By: #### L 100.0500, L500.4050, L501.1400 #### [facility] [address] [place], [address] Nucleated RBC (Bld) [#/Vol] 0 10*3/uL Normal 0-5 [facility] Comment on above: Order Comment: URIC ACID ADDED TO 05/24/25 LABWORK Performed By: #### L 100.0500, L500.4050, L501.1400 #### [facility] [address] [place], [address] Platelet mean volume (Bld) [Entitic vol] 9.6 fL Normal 6.2-12.0 [facility] Comment on above: Order Comment: URIC ACID ADDED TO 05/24/25 LABWORK Performed By: #### L 100.0500, L500.4050, L501.1400 #### [facility] [address] [place], [address] Platelets (Bld) [#/Vol] 231 10*3/uL Normal 150-450 [facility] Comment on above: Order Comment: URIC ACID ADDED TO 05/24/25 LABWORK Performed By: #### L 100.0500, L500.4050, L501.1400 #### [facility] [address] [place], [address] RBC (Bld) [#/Vol] 4.30 10*6/uL Low 4.6-6.2 [facility] Comment on above: Order Comment: URIC ACID ADDED TO 05/24/25 LABWORK Performed By: #### L 100.0500, L500.4050, L501.1400 #### [facility] [address] [place], [address] RDW SD 41.1 fl Normal 35.1-43.9 [facility] Comment on above: Order Comment: URIC ACID ADDED TO 05/24/25 LABWORK Performed By: #### L 100.0500, L500.4050, L501.1400 #### [facility] [address] [place], [address] WBC (Bld) [#/Vol] 9.0 10*3/uL Normal 4.4-11.0 [facility] Comment on above: Order Comment: URIC ACID ADDED TO 05/24/25 LABWORK Performed By: #### L 100.0500, L500.4050, L501.1400 #### [facility] [address] [place], [address] Comprehensive Metabolic Prof ilon 07-29-2025 Albumin [Mass/Vol] 3.6 g/dL Normal 3.4-4.8 [facility] Comment on above: Order Comment: URIC ACID ADDED TO 05/24/25 LABWORK Performed By: #### L 100.0500, L500.4050, L501.1400 #### [facility] [address] [place], [address] Albumin/Globulin [Mass ratio] 1.5 {ratio} Normal 0.9-2.4 [facility] Comment on above: Order Comment: URIC ACID ADDED TO 05/24/25 LABWORK Performed By: #### L 100.0500, L500.4050, L501.1400 #### [facility] [address] [place], [address] ALK PHOS 91 U/L Normal 40-129 [facility] Comment on above: Order Comment: URIC ACID ADDED TO 05/24/25 LABWORK Performed By: #### L 100.0500, L500.4050, L501.1400 #### [facility] [address] [place], [address] ALT [Catalytic activity/Vol] 12 U/L Normal <=46 [facility] Comment on above: Order Comment: URIC ACID ADDED TO 05/24/25 LABWORK Performed By: #### L 100.0500, L500.4050, L501.1400 #### [facility] [address] [place], [address] AST [Catalytic activity/Vol] 12 U/L Normal <=37 [facility] Comment on above: Order Comment: URIC ACID ADDED TO 05/24/25 LABWORK Performed By: #### L 100.0500, L500.4050, L501.1400 #### [facility] [address] [place], [address] Bilirubin [Mass/Vol] 0.15 mg/dL Normal 0.00-1.30 [facility] Comment on above: Order Comment: URIC ACID ADDED TO 05/24/25 LABWORK Performed By: #### L 100.0500, L500.4050, L501.1400 #### [facility] [address] [place], [address] BUN/CRE 11.1 RATIO Normal 10-20 [facility] Comment on above: Order Comment: URIC ACID ADDED TO 05/24/25 LABWORK Performed By: #### L 100.0500, L500.4050, L501.1400 #### [facility] [address] [place], [address] Calcium [Mass/Vol] 9.2 mg/dL Normal 7.6-11.0 [facility] Comment on above: Order Comment: URIC ACID ADDED TO 05/24/25 LABWORK Performed By: #### L 100.0500, L500.4050, L501.1400 #### [facility] [address] [place], [address] Chloride [Moles/Vol] 108 mmol/L Normal 98-108 [facility] Comment on above: Order Comment: URIC ACID ADDED TO 05/24/25 LABWORK Performed By: #### L 100.0500, L500.4050, L501.1400 #### [facility] [address] [place], [address] CO2 [Moles/Vol] 22.2 mmol/L Normal 21.0-32.0 [facility] Comment on above: Order Comment: URIC ACID ADDED TO 05/24/25 LABWORK Performed By: #### L 100.0500, L500.4050, L501.1400 #### [facility] [address] [place], [address] Creatinine [Mass/Vol] 2.36 mg/dL High 0.70-1.20 [facility] Comment on above: Order Comment: URIC ACID ADDED TO 05/24/25 LABWORK Performed By: #### L 100.0500, L500.4050, L501.1400 #### [facility] [address] [place], [address] GAP 10 Normal 5-15 [facility] Comment on above: Order Comment: URIC ACID ADDED TO 05/24/25 LABWORK Performed By: #### L 100.0500, L500.4050, L501.1400 #### [facility] [address] [place], [address] GFR/1.73 sq M.predicted among non-blacks MDRD (S/P/Bld) [Vol rate/Area] 30 mL/min/{1.73_m2} Low >60 [facility] Comment on above: Order Comment: URIC ACID ADDED TO 05/24/25 LABWORK Result Comment: mL/m in/1.73m2 CKD-EPI Creatinine Equation (2020) Performed By: #### L 100.0500, L500.4050, L501.1400 #### [facility] [address] [place], [address] Globulin (S) [Mass/Vol] 2.4 g/dL Normal 2.2-4.2 [facility] Comment on above: Order Comment: URIC ACID ADDED TO 05/24/25 LABWORK Performed By: #### L 100.0500, L500.4050, L501.1400 #### [facility] [address] [place], [address] Glucose [Mass/Vol] 136 mg/dL High 70-99 [facility] Comment on above: Order Comment: URIC ACID ADDED TO 05/24/25 LABWORK Performed By: #### L 100.0500, L500.4050, L501.1400 #### [facility] [address] [place], [address] Potassium [Moles/Vol] 4.5 mmol/L Normal 3.3-5.1 [facility] Comment on above: Order Comment: URIC ACID ADDED TO 05/24/25 LABWORK Performed By: #### L 100.0500, L500.4050, L501.1400 #### [facility] [address] [place], [address] Sodium [Moles/Vol] 140 mmol/L Normal 133-145 [facility] Comment on above: Order Comment: URIC ACID ADDED TO 05/24/25 LABWORK Performed By: #### L 100.0500, L500.4050, L501.1400 #### [facility] [address] [place], [address] T PROT 6.0 g/dL Normal 5.9-8.4 [facility] Comment on above: Order Comment: URIC ACID ADDED TO 05/24/25 LABWORK Performed By: #### L 100.0500, L500.4050, L501.1400 #### [facility] [address] [place], [address] Urea nitrogen [Mass/Vol] 26 mg/dL High 4-19 [facility] Comment on above: Order Comment: URIC ACID ADDED TO 05/24/25 LABWORK Performed By: #### L 100.0500, L500.4050, L501.1400 #### [facility] [address] [place], [address] Phosphoruson 07-29-2025 Phosphate [Mass/Vol] 4.6 mg/dL High 2.7-4.5 [facility] Comment on above: Order Comment: URIC ACID ADDED TO 05/24/25 LABWORK Performed By: #### L 100.0500, L500.4050, L501.1400 #### [facility] [address] [place], [address] Lithiumon 07-02-2025 LI 0.56 mmol/L Low 0.60-1.20 [facility] Comment on above: Order Comment: 111.2 Performed By: #### L 501.2300, L500.4050, L501.9060, L100.0100 #### [facility] [address] [place], [address] Liver Profileon 07-01-2025 Albumin [Mass/Vol] 3.5 g/dL Normal 3.4-4.8 [facility] Comment on above: Performed By: #### L 501.9060 #### [facility] [address] [place], [address] ALK PHOS 88 U/L Normal 40-129 [facility] Comment on above: Performed By: #### L 501.9060 #### [facility] [address] [place], [address] ALT [Catalytic activity/Vol] 13 U/L Normal <=46 [facility] Comment on above: Performed By: #### L 501.9060 #### [facility] [address] [place], [address] AST [Catalytic activity/Vol] 11 U/L Normal <=37 [facility] Comment on above: Performed By: #### L 501.9060 #### [facility] [address] [place], [address] Bilirubin [Mass/Vol] 0.16 mg/dL Normal 0.00-1.30 [facility] Comment on above: Performed By: #### L 501.9060 #### [facility] [address] [place], [address] Bilirubin.direct [Mass/Vol] 0.09 mg/dL Normal 0.00-0.30 [facility] Comment on above: Performed By: #### L 501.9060 #### [facility] [address] [place], [address] Globulin (S) [Mass/Vol] 2.4 g/dL Normal 2.2-4.2 [facility] Comment on above: Performed By: #### L 501.9060 #### [facility] [address] [place], [address] T PROT 5.8 g/dL Low 5.9-8.4 [facility] Comment on above: Performed By: #### L 501.9060 #### [facility] [address] [place], [address] Uric Acidon 06-27-2025 URIC 5.8 mg/dL Normal 3.5-7.2 [facility] Comment on above: Order Comment: 111.2 20250501 Result Comment: The drugs N-Acetylcysteine and Metamizole may falsely depress this assay. Performed By: #### L 501.9060 #### [facility] [address] [place], [address] Protein+Creatinine Ratio,Uri neon 06-20-2025 PROT:CRE RATIO 227 mg/g CRE High 0-200 [facility] Comment on above: Order Comment: 111.2 20250501 Performed By: #### L 501.9060 #### [facility] [address] [place], [address] Protein (U) [Mass/Vol] 7.7 mg/dL Normal 0.0-12.0 [facility] Comment on above: Order Comment: 111.2 20250501 Performed By: #### L 501.9060 #### [facility] [address] [place], [address] UR CREAT 33.80 mg/dL Low 39.00-259. 00 [facility] Comment on above: Order Comment: 111.2 [id number] Performed By: #### L 501.9060 #### [facility] [address] [place], [address] CBC W/Diff, Automatedon 08-0 Absolute Lymph 1.75 X10 3/uL Normal 0.83-4.51 [facility] Comment on above: Order Comment: URIC ACID ADDED TO 05/24/25 LABWORK Performed By: #### L 100.0500, L500.4050, L501.1400 #### [facility] [address] [place], [address] Absolute Neut 5.4 X10 3/uL Normal 2.0-7.7 [facility] Comment on above: Order Comment: URIC ACID ADDED TO 05/24/25 LABWORK Performed By: #### L 100.0500, L500.4050, L501.1400 #### [facility] [address] [place], [address] Basophils/100 WBC (Bld) 1.0 % Normal 0-1 [facility] Comment on above: Order Comment: URIC ACID ADDED TO 05/24/25 LABWORK Performed By: #### L 100.0500, L500.4050, [id number] #### [facility] [address] [place], [address] Eosinophils/100 WBC (Bld) 6.0 % High 0-5 [facility] Comment on above: Order Comment: URIC ACID ADDED TO 05/24/25 LABWORK Performed By: #### L 100.0500, L500.4050, [id number] #### [facility] [address] [place], [address] Erythrocyte distribution width (RBC) [Ratio] 12.7 % Normal 11.6-14.6 [facility] Comment on above: Order Comment: URIC ACID ADDED TO 05/24/25 LABWORK Performed By: #### L 100.0500, L500.4050, [id number] #### [facility] [address] [place], [address] Hematocrit (Bld) [Volume fraction] 39.2 % Low 40-54 [facility] Comment on above: Order Comment: URIC ACID ADDED TO 05/24/25 LABWORK Performed By: #### L 100.0500, L500.4050, [id number] #### [facility] [address] [place], [address] Hemoglobin (Bld) [Mass/Vol] 12.8 g/dL Low 13.0-16.5 [facility] Comment on above: Order Comment: URIC ACID ADDED TO 05/24/25 LABWORK Performed By: #### L 100.0500, L500.4050, [id number] #### [facility] [address] [place], [address] IG% 0.500 Normal 0.0-0.9 [facility] Comment on above: Order Comment: URIC ACID ADDED TO 05/24/25 LABWORK Result Comment: IG% - Immature Granulocytes (promyelocytes, myelocytes and metamyelocytes) > 1% indicates that a LEFT SHIFT is Present. Performed By: #### L 100.0500, L500.4050, L501.1400 #### [facility] [address] [place], [address] Lymphocytes/100 WBC (Bld) 20.1 % Normal 19-41 [facility] Comment on above: Order Comment: URIC ACID ADDED TO 05/24/25 LABWORK Performed By: #### L 100.0500, L500.4050, L501.1400 #### [facility] [address] [place], [address] MCH (RBC) [Entitic mass] 30.0 pg Normal 27.0-32.0 [facility] Comment on above: Order Comment: URIC ACID ADDED TO 05/24/25 LABWORK Performed By: #### L 100.0500, L500.4050, L501.1400 #### [facility] [address] [place], [address] MCHC (RBC) [Mass/Vol] 32.7 g/dL Normal 32-36 [facility] Comment on above: Order Comment: URIC ACID ADDED TO 05/24/25 LABWORK Performed By: #### L 100.0500, L500.4050, L501.1400 #### [facility] [address] [place], [address] MCV (RBC) [Entitic vol] 91.8 fL Normal 80-94 [facility] Comment on above: Order Comment: URIC ACID ADDED TO 05/24/25 LABWORK Performed By: #### L 100.0500, L500.4050, L501.1400 #### [facility] [address] [place], [address] Monocytes/100 WBC (Bld) 10.7 % High 0-10 [facility] Comment on above: Order Comment: URIC ACID ADDED TO 05/24/25 LABWORK Performed By: #### L 100.0500, L500.4050, L501.1400 #### [facility] [address] [place], [address] Neutrophils/100 WBC (Bld) 61.7 % Normal 47-70 [facility] Comment on above: Order Comment: URIC ACID ADDED TO 05/24/25 LABWORK Performed By: #### L 100.0500, L500.4050, L501.1400 #### [facility] [address] [place], [address] Nucleated RBC (Bld) [#/Vol] 0 10*3/uL Normal 0-5 [facility] Comment on above: Order Comment: URIC ACID ADDED TO 05/24/25 LABWORK Performed By: #### L 100.0500, L500.4050, L501.1400 #### [facility] [address] [place], [address] Platelet mean volume (Bld) [Entitic vol] 9.5 fL Normal 6.2-12.0 [facility] Comment on above: Order Comment: URIC ACID ADDED TO 05/24/25 LABWORK Performed By: #### L 100.0500, L500.4050, L501.1400 #### [facility] [address] [place], [address] Platelets (Bld) [#/Vol] 247 10*3/uL Normal 150-450 [facility] Comment on above: Order Comment: URIC ACID ADDED TO 05/24/25 LABWORK Performed By: #### L 100.0500, L500.4050, L501.1400 #### [facility] [address] [place], [address] RBC (Bld) [#/Vol] 4.27 10*6/uL Low 4.6-6.2 [facility] Comment on above: Order Comment: URIC ACID ADDED TO 05/24/25 LABWORK Performed By: #### L 100.0500, L500.4050, L501.1400 #### [facility] [address] [place], [address] RDW SD 42.5 fl Normal 35.1-43.9 [facility] Comment on above: Order Comment: URIC ACID ADDED TO 05/24/25 LABWORK Performed By: #### L 100.0500, L500.4050, L501.1400 #### [facility] [address] [place], [address] WBC (Bld) [#/Vol] 8.7 10*3/uL Normal 4.4-11.0 [facility] Comment on above: Order Comment: URIC ACID ADDED TO 05/24/25 LABWORK Performed By: #### L 100.0500, L500.4050, L501.1400 #### [facility] [address] [place], [address] Comprehensive Metabolic Prof ilon 06-19-2025 Albumin [Mass/Vol] 3.6 g/dL Normal 3.4-4.8 [facility] Comment on above: Order Comment: URIC ACID ADDED TO 05/24/25 LABWORK Performed By: #### L 100.0500, L500.4050, L501.1400 #### [facility] [address] [place], [address] Albumin/Globulin [Mass ratio] 1.4 {ratio} Normal 0.9-2.4 [facility] Comment on above: Order Comment: URIC ACID ADDED TO 05/24/25 LABWORK Performed By: #### L 100.0500, L500.4050, L501.1400 #### [facility] [address] [place], [address] ALK PHOS 91 U/L Normal 40-129 [facility] Comment on above: Order Comment: URIC ACID ADDED TO 05/24/25 LABWORK Performed By: #### L 100.0500, L500.4050, L501.1400 #### [facility] [address] [place], [address] ALT [Catalytic activity/Vol] 8 U/L Normal <=46 [facility] Comment on above: Order Comment: URIC ACID ADDED TO 05/24/25 LABWORK Performed By: #### L 100.0500, L500.4050, L501.1400 #### [facility] [address] [place], [address] AST [Catalytic activity/Vol] 14 U/L Normal <=37 [facility] Comment on above: Order Comment: URIC ACID ADDED TO 05/24/25 LABWORK Performed By: #### L 100.0500, L500.4050, L501.1400 #### [facility] [address] [place], [address] Bilirubin [Mass/Vol] 0.22 mg/dL Normal 0.00-1.30 [facility] Comment on above: Order Comment: URIC ACID ADDED TO 05/24/25 LABWORK Performed By: #### L 100.0500, L500.4050, L501.1400 #### [facility] [address] [place], [address] BUN/CRE 11.3 RATIO Normal 10-20 [facility] Comment on above: Order Comment: URIC ACID ADDED TO 05/24/25 LABWORK Performed By: #### L 100.0500, L500.4050, L501.1400 #### [facility] [address] [place], [address] Calcium [Mass/Vol] 9.3 mg/dL Normal 7.6-11.0 [facility] Comment on above: Order Comment: URIC ACID ADDED TO 05/24/25 LABWORK Performed By: #### L 100.0500, L500.4050, L501.1400 #### [facility] [address] [place], [address] Chloride [Moles/Vol] 105 mmol/L Normal 98-108 [facility] Comment on above: Order Comment: URIC ACID ADDED TO 05/24/25 LABWORK Performed By: #### L 100.0500, L500.4050, L501.1400 #### [facility] [address] [place], [address] CO2 [Moles/Vol] 19.9 mmol/L Low 21.0-32.0 [facility] Comment on above: Order Comment: URIC ACID ADDED TO 05/24/25 LABWORK Performed By: #### L 100.0500, L500.4050, L501.1400 #### [facility] [address] [place], [address] Creatinine [Mass/Vol] 2.26 mg/dL High 0.70-1.20 [facility] Comment on above: Order Comment: URIC ACID ADDED TO 05/24/25 LABWORK Performed By: #### L 100.0500, L500.4050, L501.1400 #### [facility] [address] [place], [address] GAP 13 Normal 5-15 [facility] Comment on above: Order Comment: URIC ACID ADDED TO 05/24/25 LABWORK Performed By: #### L 100.0500, L500.4050, L501.1400 #### [facility] [address] [place], [address] GFR/1.73 sq M.predicted among non-blacks MDRD (S/P/Bld) [Vol rate/Area] 32 mL/min/{1.73_m2} Low >60 [facility] Comment on above: Order Comment: URIC ACID ADDED TO 05/24/25 LABWORK Result Comment: mL/m in/1.73m2 CKD-EPI Creatinine Equation (2020) Performed By: #### L 100.0500, L500.4050, L501.1400 #### [facility] [address] [place], [address] Globulin (S) [Mass/Vol] 2.5 g/dL Normal 2.2-4.2 [facility] Comment on above: Order Comment: URIC ACID ADDED TO 05/24/25 LABWORK Performed By: #### L 100.0500, L500.4050, L501.1400 #### [facility] [address] [place], [address] Glucose [Mass/Vol] 122 mg/dL High 70-99 [facility] Comment on above: Order Comment: URIC ACID ADDED TO 05/24/25 LABWORK Performed By: #### L 100.0500, L500.4050, L501.1400 #### [facility] [address] [place], [address] Potassium [Moles/Vol] 4.3 mmol/L Normal 3.3-5.1 [facility] Comment on above: Order Comment: URIC ACID ADDED TO 05/24/25 LABWORK Performed By: #### L 100.0500, L500.4050, L501.1400 #### [facility] [address], [address] Sodium [Moles/Vol] 137 mmol/L Normal 133-145 [facility] Comment on above: Order Comment: URIC ACID ADDED TO 05/24/25 LABWORK Performed By: #### L 100.0500, L500.4050, L501.1400 #### [facility] [address] [place], [address] T PROT 6.1 g/dL Normal 5.9-8.4 [facility] Comment on above: Order Comment: URIC ACID ADDED TO 05/24/25 LABWORK Performed By: #### L 100.0500, L500.4050, L501.1400 #### [facility] [address] [place], [address] Urea nitrogen [Mass/Vol] 26 mg/dL High 4-19 [facility] Comment on above: Order Comment: URIC ACID ADDED TO 05/24/25 LABWORK Performed By: #### L 100.0500, L500.4050, L501.1400 #### [facility] [address] [place], [address] Lithiumon 06-19-2025 LI 0.56 mmol/L Low 0.60-1.20 [facility] Comment on above: Order Comment: URIC ACID ADDED TO 05/24/25 LABWORK Performed By: #### L 100.0500, L500.4050, L501.1400 #### [facility] [address] [place], [address] Phosphoruson 06-19-2025 Phosphate [Mass/Vol] 4.5 mg/dL Normal 2.7-4.5 [facility] Comment on above: Order Comment: URIC ACID ADDED TO 05/24/25 LABWORK Performed By: #### L 100.0500, L500.4050, L501.1400 #### [facility] [address] [place], [address] EST Glomerular Filtration Ra meredith 06-05-2025 GFR/1.73 sq M.predicted among non-blacks MDRD (S/P/Bld) [Vol rate/Area] 30 mL/min/{1.73_m2} Low >60 [facility] Comment on above: Order Comment: 111.2 20250501 Result Comment: mL/m in/1.73m2 CKD-EPI Creatinine Equation (2020) Performed By: #### L 501.9060 #### [facility] [address] [place], [address] Urine Cultureon 05-29-2025 [facility] Mixed Gram Positive Organisms Schlater Count 11,000-25,000 [facility] Mixed contaminants. Submit a new specimen if indicated. Normal [facility] Comment on above: Performed By: #### L 501.1400 #### [facility] [address] [place], [address] CBC W/Diff, Automatedon 05-14 Absolute Lymph 2.10 X10 3/uL Normal 0.83-4.51 [facility] Comment on above: Order Comment: 111.2 20250501 Performed By: #### L 501.9060 #### [facility] [address] [place], [address] Absolute Neut 5.2 X10 3/uL Normal 2.0-7.7 [facility] Comment on above: Order Comment: 111.2 20250501 Performed By: #### L 501.9060 #### [facility] [address] [place], [address] Basophils/100 WBC (Bld) 1.0 % Normal 0-1 [facility] Comment on above: Order Comment: 111.2 20250501 Performed By: #### L 501.9060 #### [facility] [address] [place], [address] Eosinophils/100 WBC (Bld) 5.5 % High 0-5 [facility] Comment on above: Order Comment: 111.2 20250501 Performed By: #### L [id number] #### [facility] [address] [place], [address] Erythrocyte distribution width (RBC) [Ratio] 12.5 % Normal 11.6-14.6 [facility] Comment on above: Order Comment: 111.2 20250501 Performed By: #### L 501.9060 #### [facility] [address] [place], [address] Hematocrit (Bld) [Volume fraction] 39.7 % Low 40-54 [facility] Comment on above: Order Comment: 111.2 20250501 Performed By: #### L [id number] #### [facility] [address] [place], [address] Hemoglobin (Bld) [Mass/Vol] 13.3 g/dL Normal 13.0-16.5 [facility] Comment on above: Order Comment: 111.2 20250501 Performed By: #### L 501.9060 #### [facility] [address] [place], [address] IG% 0.700 Normal 0.0-0.9 [facility] Comment on above: Order Comment: 111.2 20250501 Result Comment: IG% - Immature Granulocytes (promyelocytes, myelocytes and metamyelocytes) > 1% indicates that a LEFT SHIFT is Present. Performed By: #### L 501.9060 #### [facility] [address] [place], [address] Lymphocytes/100 WBC (Bld) 23.5 % Normal 19-41 [facility] Comment on above: Order Comment: 111.2 20250501 Performed By: #### L 501.9060 #### [facility] [address] [place], [address] MCH (RBC) [Entitic mass] 30.2 pg Normal 27.0-32.0 [facility] Comment on above: Order Comment: 111.2 20250501 Performed By: #### L 501.9060 #### [facility] [address] [place], [address] MCHC (RBC) [Mass/Vol] 33.5 g/dL Normal 32-36 [facility] Comment on above: Order Comment: 111.2 20250501 Performed By: #### L 501.9060 #### [facility] [address] [place], [address] MCV (RBC) [Entitic vol] 90.0 fL Normal 80-94 [facility] Comment on above: Order Comment: 111.2 20250501 Performed By: #### L 501.9060 #### [facility] [address] [place], [address] Monocytes/100 WBC (Bld) 11.1 % High 0-10 [facility] Comment on above: Order Comment: 111.2 20250501 Performed By: #### L 501.9060 #### [facility] [address] [place], [address] Neutrophils/100 WBC (Bld) 58.2 % Normal 47-70 [facility] Comment on above: Order Comment: 111.2 20250501 Performed By: #### L 501.9060 #### [facility] [address] [place], [address] Nucleated RBC (Bld) [#/Vol] 0 10*3/uL Normal 0-5 [facility] Comment on above: Order Comment: 111.2 20250501 Performed By: #### L 501.9060 #### [facility] [address] [place], [address] Platelet mean volume (Bld) [Entitic vol] 9.2 fL Normal 6.2-12.0 [facility] Comment on above: Order Comment: 111.2 20250501 Performed By: #### L 501.9060 #### [facility] [address] [place], [address] Platelets (Bld) [#/Vol] 235 10*3/uL Normal 150-450 [facility] Comment on above: Order Comment: 111.2 20250501 Performed By: #### L 501.9060 #### [facility] [address] [place], [address] RBC (Bld) [#/Vol] 4.41 10*6/uL Low 4.6-6.2 [facility] Comment on above: Order Comment: 111.20250501 Performed By: #### L 501.9060 #### [facility] [address] [place], [address] RDW SD 41.1 fl Normal 35.1-43.9 [facility] Comment on above: Order Comment: 111.2 20250501 Performed By: #### L 501.9060 #### [facility] [address] [place], [address] WBC (Bld) [#/Vol] 8.9 10*3/uL Normal 4.4-11.0 [facility] Comment on above: Order Comment: 111.2 20250501 Performed By: #### L 501.9060 #### [facility] [address] [place], [address] Protein+Creatinine Ratio,Uri neon 05-27-2025 PROT:CRE RATIO 172 mg/g CRE Normal 0-200 [facility] Comment on above: Performed By: #### L 501.1400 #### [facility] [address] [place], [address] PROTEIN,UR.RAN. < 6.0 Normal 0.0-12.0 [facility] Comment on above: Performed By: #### L 501.1400 #### [facility] [address] [place], [address] UR CREAT 25.50 mg/dL Low 39.00-259. 00 [facility] Comment on above: Performed By: #### L 501.1400 #### [facility] [address] [place], [address] Uric Acidon 05-27-2025 URIC 6.3 mg/dL Normal 3.5-7.2 [facility] Comment on above: Order Comment: URIC ACID ADDED TO 05/24/25 LABWORK Result Comment: The drugs N-Acetylcysteine and Metamizole may falsely depress this assay. Performed By: #### L 100.0500, L500.4050, L501.1400 #### [facility] [address] [place], [address] Urinalysis, Routine (Dipstic k)on 05-27-2025 BILIRUBIN URINE Negative Normal Negative [facility] Comment on above: Order Comment: 111.2 20250501 Performed By: #### L 501.9060 #### [facility] [address] [place], [address] Clarity (U) Clear Normal Clear [facility] Comment on above: Order Comment: 111.2 20250501 Performed By: #### L 501.9060 #### [facility] [address] [place], [address] Color (U) Straw Normal Yellow [facility] Comment on above: Order Comment: 111.2 20250501 Performed By: #### L 501.9060 #### [facility] [address] [place], [address] GLUCOSE, UR Normal Normal Normal [facility] Comment on above: Order Comment: 111.2 20250501 Performed By: #### L 501.9060 #### [facility] [address] [place], [address] KETONE UR Negative Normal Negative [facility] Comment on above: Order Comment: 111.2 20250501 Performed By: #### L 501.9060 #### [facility] [address] [place], [address] LEUK ESTERASE 500 /ul Abnormal Negative [facility] Comment on above: Order Comment: 111.2 20250501 Performed By: #### L 501.9060 #### [facility] [address] [place], [address] Nitrite Ql (U) Negative Normal Negative [facility] Comment on above: Order Comment: 111.2 20250501 Performed By: #### L 501.9060 #### [facility] [address] [place], [address] OCCULT BLOOD-UR Negative Normal Negative [facility] Comment on above: Order Comment: 111.2 20250501 Performed By: #### L 501.9060 #### [facility] [address] [place], [address] pH UR 6.5 Normal 5.0 - 8.0 [facility] Comment on above: Order Comment: 111.2 20250501 Performed By: #### L 501.9060 #### [facility] [address] [place], [address] PROT DIPSTX Negative Normal Negative [facility] Comment on above: Order Comment: 111.2 20250501 Performed By: #### L 501.9060 #### [facility] [address] [place], [address] SP.GR. DIPSTX 1.005 Normal 1.002-1.03 0 [facility] Comment on above: Order Comment: 111.2 20250501 Performed By: #### L [id number] #### [facility] [address] [place], [address] UROBILI Normal Normal Normal [facility] Comment on above: Order Comment: 111.2 20250501 Performed By: #### L [id number] #### [facility] [address] [place], [address] CBC-Complete Blood Cnt No Di ffon 05-24-2025 Erythrocyte distribution width (RBC) [Ratio] 12.7 % Normal 11.6-14.6 [facility] Comment on above: Order Comment: 111.2 Performed By: #### L 100.0500, L500.4050, L501.1400 #### [facility] [address] [place], [address] Hematocrit (Bld) [Volume fraction] 39.2 % Low 40-54 [facility] Comment on above: Order Comment: 111.2 Performed By: #### L 100.0500, L500.4050, L501.1400 #### [facility] [address] [place], [address] Hemoglobin (Bld) [Mass/Vol] 12.9 g/dL Low 13.0-16.5 [facility] Comment on above: Order Comment: 111.2 Performed By: #### L 100.0500, L500.4050, L501.1400 #### [facility] [address] [place], [address] MCH (RBC) [Entitic mass] 30.1 pg Normal 27.0-32.0 [facility] Comment on above: Order Comment: 111.2 Performed By: #### L 100.0500, L500.4050, L501.1400 #### [facility] [address] [place], [address] MCHC (RBC) [Mass/Vol] 32.9 g/dL Normal 32-36 [facility] Comment on above: Order Comment: 111.2 Performed By: #### L 100.0500, L500.4050, L501.1400 #### [facility] [address] [place], [address] MCV (RBC) [Entitic vol] 91.6 fL Normal 80-94 [facility] Comment on above: Order Comment: 111.2 Performed By: #### L 100.0500, L500.4050, L501.1400 #### [facility] [address] [place], [address] Platelet mean volume (Bld) [Entitic vol] 9.2 fL Normal 6.2-12.0 [facility] Comment on above: Order Comment: 111.2 Performed By: #### L 100.0500, L500.4050, L501.1400 #### [facility] [address] [place], [address] Platelets (Bld) [#/Vol] 247 10*3/uL Normal 150-450 [facility] Comment on above: Order Comment: 111.2 Performed By: #### L 100.0500, L500.4050, L501.1400 #### [facility] [address] [place], [address] RBC (Bld) [#/Vol] 4.28 10*6/uL Low 4.6-6.2 [facility] Comment on above: Order Comment: 111.2 Performed By: #### L 100.0500, L500.4050, L501.1400 #### [facility] [address] [place], [address] RDW SD 42.1 fl Normal 35.1-43.9 [facility] Comment on above: Order Comment: 111.2 Performed By: #### L 100.0500, L500.4050, L501.1400 #### [facility] [address] [place], [address] WBC (Bld) [#/Vol] 10.3 10*3/uL Normal 4.4-11.0 [facility] Comment on above: Order Comment: 111.2 Performed By: #### L 100.0500, L500.4050, L501.1400 #### [facility] [address] [place], [address] Comprehensive Metabolic Prof ilon 05-24-2025 Albumin [Mass/Vol] 3.7 g/dL Normal 3.4-4.8 [facility] Comment on above: Order Comment: 111.2 Performed By: #### L 100.0500, L500.4050, L501.1400 #### [facility] [address] [place], [address] Albumin/Globulin [Mass ratio] 1.6 {ratio} Normal 0.9-2.4 [facility] Comment on above: Order Comment: 111.2 Performed By: #### L 100.0500, L500.4050, L501.1400 #### [facility] [address] [place], [address] ALK PHOS 80 U/L Normal 40-129 [facility] Comment on above: Order Comment: 111.2 Performed By: #### L 100.0500, L500.4050, L501.1400 #### [facility] [address] [place], [address] ALT [Catalytic activity/Vol] 10 U/L Normal <=46 [facility] Comment on above: Order Comment: 111.2 Performed By: #### L 100.0500, L500.4050, L501.1400 #### [facility] [address] [place], [address] AST [Catalytic activity/Vol] 12 U/L Normal <=37 [facility] Comment on above: Order Comment: 111.2 Performed By: #### L 100.0500, L500.4050, L501.1400 #### [facility] [address] [place], [address] Bilirubin [Mass/Vol] 0.15 mg/dL Normal 0.00-1.30 [facility] Comment on above: Order Comment: 111.2 Performed By: #### L 100.0500, L500.4050, L501.1400 #### [facility] [address] [place], [address] BUN/CRE 11.9 RATIO Normal 10-20 [facility] Comment on above: Order Comment: 111.2 Performed By: #### L 100.0500, L500.4050, L501.1400 #### [facility] [address] [place], [address] Calcium [Mass/Vol] 9.2 mg/dL Normal 7.6-11.0 [facility] Comment on above: Order Comment: 111.2 Performed By: #### L 100.0500, L500.4050, L501.1400 #### [facility] [address] [place], [address] Chloride [Moles/Vol] 107 mmol/L Normal 98-108 [facility] Comment on above: Order Comment: 111.2 Performed By: #### L 100.0500, L500.4050, L501.1400 #### [facility] [address] [place], [address] CO2 [Moles/Vol] 21.9 mmol/L Normal 21.0-32.0 [facility] Comment on above: Order Comment: 111.2 Performed By: #### L 100.0500, L500.4050, L501.1400 #### [facility] [address] [place], [address] Creatinine [Mass/Vol] 2.10 mg/dL High 0.70-1.20 [facility] Comment on above: Order Comment: 111.2 Performed By: #### L 100.0500, L500.4050, L501.1400 #### [facility] [address] [place], [address] GAP 10 Normal 5-15 [facility] Comment on above: Order Comment: 111.2 Performed By: #### L 100.0500, L500.4050, L501.1400 #### [facility] [address] [place], [address] GFR/1.73 sq M.predicted among non-blacks MDRD (S/P/Bld) [Vol rate/Area] 35 mL/min/{1.73_m2} Low >60 [facility] Comment on above: Order Comment: 111.2 Result Comment: mL/m in/1.73m2 CKD-EPI Creatinine Equation (2020) Performed By: #### L 100.0500, L500.4050, L501.1400 #### [facility] [address] [place], [address] Globulin (S) [Mass/Vol] 2.3 g/dL Normal 2.2-4.2 [facility] Comment on above: Order Comment: 111.2 Performed By: #### L 100.0500, L500.4050, L501.1400 #### [facility] [address] [place], [address] Glucose [Mass/Vol] 116 mg/dL High 70-99 [facility] Comment on above: Order Comment: 111.2 Performed By: #### L 100.0500, L500.4050, L501.1400 #### [facility] [address] [place], [address] Potassium [Moles/Vol] 4.4 mmol/L Normal 3.3-5.1 [facility] Comment on above: Order Comment: 111.2 Performed By: #### L 100.0500, L500.4050, L501.1400 #### [facility] [address] [place], [address] Sodium [Moles/Vol] 139 mmol/L Normal 133-145 [facility] Comment on above: Order Comment: 111.2 Performed By: #### L 100.0500, L500.4050, L501.1400 #### [facility] [address] [place], [address] T PROT 6.0 g/dL Normal 5.9-8.4 [facility] Comment on above: Order Comment: 111.2 Performed By: #### L 100.0500, L500.4050, L501.1400 #### [facility] [address] [place], [address] Urea nitrogen [Mass/Vol] 25 mg/dL High 4-19 [facility] Comment on above: Order Comment: 111.2 Performed By: #### L 100.0500, L500.4050, L501.1400 #### [facility] [address] [place], [address] Lithiumon 05-02-2025 LI 0.53 mmol/L Low 0.60-1.20 [facility] Comment on above: Order Comment: 111.2 [id number] Performed By: #### L 501.9060 #### [facility] [address] [place], [address] Serum or plasma uric acid me asurement (mass/volume)Ordered By: Alfredo Phipps on 04-26-2025 Urate [Mass/Vol] 6.3 mg/dL 3.5-7.2 [facility] Comment on above: The drugs N-Acetylcy steine and Metamizole may falsely depress this assay. Uric Acidon 04-26-2025 URIC 6.3 mg/dL Normal 3.5-7.2 [facility] Comment on above: Order Comment: 111-2 Result Comment: The drugs N-Acetylcysteine and Metamizole may falsely depress this assay. Performed By: #### L 501.1400 #### [facility] [address] [place], [place], [id number] Absolute lymphocyte countOrd ered By: Adam Ferraro on 04-24-2025 Lymphocytes Auto (Unsp spec) [#/Vol] 2.17 10*3/uL 0.83-4.51 [facility] Absolute neutrophil countOrd ered By: Adam Ferraro on 04-24-2025 Neutrophils (Bld) [#/Vol] 6.4 10*3/uL 2.0-7.7 [facility] Anion gap in Serum or Plasma Ordered By: Adam Ferraro on 04-24-2025 Anion gap [Moles/Vol] 12 mmol/L 5-15 [facility] Automated lymphocyte count a s percentage of total leukocytesOrdered By: Adam Ferraro on 04-24-2025 Lymphocytes/100 WBC Auto (Unsp spec) 21.0 % 19- [facility] BUN/creatinine ratioOrdered By: Adam Ferraro on 04-24-2025 Urea nitrogen/Creatinine [Mass ratio] 10.5 mg/mg 10-20 [facility] Basophil percentageOrdered B y: Adam Ferraro on 04-24-2025 Basophils/100 WBC (Bld) 1.1 % High 0-1 [facility] Bilirubin, totalOrdered By: Adam Ferraro on 04-24-2025 Bilirubin [Mass/Vol] 0.16 mg/dL 0.00-1.30 [facility] CBC W/Diff, Automatedon 04-14 Absolute Lymph 2.17 X10 3/uL Normal 0.83-4.51 [facility] Comment on above: Order Comment: 111.2 Performed By: #### L 501.2300, L500.4050, L501.9060, L100.0100 #### [facility] [address] [place], [place], [id number] Absolute Neut 6.4 X10 3/uL Normal 2.0-7.7 [facility] Comment on above: Order Comment: 111.2 Performed By: #### L 501.2300, L500.4050, L501.9060, L100.0100 #### [facility] [address] [place], [address] Basophils/100 WBC (Bld) 1.1 % High 0-1 [facility] Comment on above: Order Comment: 111.2 Performed By: #### L 501.2300, L500.4050, L501.9060, L100.0100 #### [facility] [address] [place], [address] Eosinophils/100 WBC (Bld) 5.1 % High 0-5 [facility] Comment on above: Order Comment: 111.2 Performed By: #### L 501.2300, L500.4050, L501.9060, L100.0100 #### [facility] [address] [place] [place], [address] Erythrocyte distribution width (RBC) [Ratio] 13.1 % Normal 11.6-14.6 [facility] Comment on above: Order Comment: 111.2 Performed By: #### L 501.2300, L500.4050, L501.9060, L100.0100 #### [facility] [address] [place] [place], [address] Hematocrit (Bld) [Volume fraction] 38.2 % Low 40-54 [facility] Comment on above: Order Comment: 111.2 Performed By: #### L 501.2300, L500.4050, L501.9060, L100.0100 #### [facility] [address] [place], [address] Hemoglobin (Bld) [Mass/Vol] 12.7 g/dL Low 13.0-16.5 [facility] Comment on above: Order Comment: 111.2 Performed By: #### L 501.2300, L500.4050, L501.9060, L100.0100 #### [facility] [address] [place], [address] IG% 0.700 Normal 0.0-0.9 [facility] Comment on above: Order Comment: 111.2 Result Comment: IG% - Immature Granulocytes (promyelocytes, myelocytes and metamyelocytes) > 1% indicates that a LEFT SHIFT is Present. Performed By: #### L 501.2300, L500.4050, L501.9060, L100.0100 #### [facility] [address] [place], [address] Lymphocytes/100 WBC (Bld) 21.0 % Normal 19-41 [facility] Comment on above: Order Comment: 111.2 Performed By: #### L 501.2300, L500.4050, L501.9060, L100.0100 #### [facility] [address] [place], [address] MCH (RBC) [Entitic mass] 30.4 pg Normal 27.0-32.0 [facility] Comment on above: Order Comment: 111.2 Performed By: #### L 501.2300, L500.4050, L501.9060, L100.0100 #### [facility] [address] [place], [address] MCHC (RBC) [Mass/Vol] 33.2 g/dL Normal 32-36 [facility] Comment on above: Order Comment: 111.2 Performed By: #### L 501.2300, L500.4050, L501.9060, L100.0100 #### [facility] [address] [place], [address] MCV (RBC) [Entitic vol] 91.4 fL Normal 80-94 [facility] Comment on above: Order Comment: 111.2 Performed By: #### L 501.2300, L500.4050, L501.9060, L100.0100 #### [facility] [address] [place], [address] Monocytes/100 WBC (Bld) 9.9 % Normal 0-10 [facility] Comment on above: Order Comment: 111.2 Performed By: #### L 501.2300, L500.4050, L501.9060, L100.0100 #### [facility] [address] [place], [address] Neutrophils/100 WBC (Bld) 62.2 % Normal 47-70 [facility] Comment on above: Order Comment: 111.2 Performed By: #### L 501.2300, L500.4050, L501.9060, L100.0100 #### [facility] [address] [place], [address] Nucleated RBC (Bld) [#/Vol] 0 10*3/uL Normal 0-5 [facility] Comment on above: Order Comment: 111.2 Performed By: #### L 501.2300, L500.4050, L501.9060, L100.0100 #### [facility] [address] [place], [address] Platelet mean volume (Bld) [Entitic vol] 9.4 fL Normal 6.2-12.0 [facility] Comment on above: Order Comment: 111.2 Performed By: #### L 501.2300, L500.4050, L501.9060, L100.0100 #### [facility] [address] [place], [address] Platelets (Bld) [#/Vol] 245 10*3/uL Normal 150-450 [facility] Comment on above: Order Comment: 111.2 Performed By: #### L 501.2300, L500.4050, L501.9060, L100.0100 #### [facility] [address] [place], [address] RBC (Bld) [#/Vol] 4.18 10*6/uL Low 4.6-6.2 [facility] Comment on above: Order Comment: 111.2 Performed By: #### L 501.2300, L500.4050, L501.9060, L100.0100 #### [facility] [address] [place], [address] RDW SD 43.9 fl Normal 35.1-43.9 [facility] Comment on above: Order Comment: 111.2 Performed By: #### L 501.2300, L500.4050, L501.9060, L100.0100 #### [facility] [address] [place], [address] WBC (Bld) [#/Vol] 10.3 10*3/uL Normal 4.4-11.0 [facility] Comment on above: Order Comment: 111.2 Performed By: #### L 501.2300, L500.4050, L501.9060, L100.0100 #### [facility] [address] [place], [address] Carbon dioxide, total [Moles /volume] in Central venous bloodOrdered By: Adam Ferraro on 04-24-2025 CO2 [Moles/Vol] 21.9 mmol/L 21.0-32.0 [facility] Chloride assayOrdered By: Sabino Ferraro on 04-24-2025 Chloride [Moles/Vol] 107 mmol/L 98-108 [facility] Comprehensive Metabolic Prof ilon 04-24-2025 Albumin [Mass/Vol] 3.5 g/dL Normal 3.4-4.8 [facility] Comment on above: Order Comment: 111.2 Performed By: #### L 501.2300, L500.4050, L501.9060, L100.0100 #### [facility] [address] [place], [address] Albumin/Globulin [Mass ratio] 1.5 {ratio} Normal 0.9-2.4 [facility] Comment on above: Order Comment: 111.2 Performed By: #### L 501.2300, L500.4050, L501.9060, L100.0100 #### [facility] [address] [place], [address] ALK PHOS 76 U/L Normal 40-129 [facility] Comment on above: Order Comment: 111.2 Performed By: #### L 501.2300, L500.4050, L501.9060, L100.0100 #### [facility] [address] [place], [address] ALT [Catalytic activity/Vol] 11 U/L Normal <=46 [facility] Comment on above: Order Comment: 111.2 Performed By: #### L 501.2300, L500.4050, L501.9060, L100.0100 #### [facility] [address] [place], [address] AST [Catalytic activity/Vol] 16 U/L Normal <=37 [facility] Comment on above: Order Comment: 111.2 Performed By: #### L 501.2300, L500.4050, L501.9060, L100.0100 #### [facility] [address] [place], [address] Bilirubin [Mass/Vol] 0.16 mg/dL Normal 0.00-1.30 [facility] Comment on above: Order Comment: 111.2 Performed By: #### L 501.2300, L500.4050, L501.9060, L100.0100 #### [facility] [address] [place], [address] BUN/CRE 10.5 RATIO Normal 10-20 [facility] Comment on above: Order Comment: 111.2 Performed By: #### L 501.2300, L500.4050, L501.9060, L100.0100 #### [facility] [address] [place], [address] Calcium [Mass/Vol] 9.3 mg/dL Normal 7.6-11.0 [facility] Comment on above: Order Comment: 111.2 Performed By: #### L 501.2300, L500.4050, L501.9060, L100.0100 #### [facility] [address] [place], [address] Chloride [Moles/Vol] 107 mmol/L Normal 98-108 [facility] Comment on above: Order Comment: 111.2 Performed By: #### L 501.2300, L500.4050, L501.9060, L100.0100 #### [facility] [address] [place], [address] CO2 [Moles/Vol] 21.9 mmol/L Normal 21.0-32.0 [facility] Comment on above: Order Comment: 111.2 Performed By: #### L 501.2300, L500.4050, L501.9060, L100.0100 #### [facility] [address] [place], [address] Creatinine [Mass/Vol] 2.41 mg/dL High 0.70-1.20 [facility] Comment on above: Order Comment: 111.2 Performed By: #### L 501.2300, L500.4050, L501.9060, L100.0100 #### [facility] [address] [place], [address] GAP 12 Normal 5-15 [facility] Comment on above: Order Comment: 111.2 Performed By: #### L 501.2300, L500.4050, L501.9060, L100.0100 #### [facility] [address] [place], [address] GFR/1.73 sq M.predicted among non-blacks MDRD (S/P/Bld) [Vol rate/Area] 30 mL/min/{1.73_m2} Low >60 [facility] Comment on above: Order Comment: 111.2 Result Comment: mL/m in/1.73m2 CKD-EPI Creatinine Equation (2020) Performed By: #### L 501.2300, L500.4050, L501.9060, L100.0100 #### [facility] [address] [place], [address] Globulin (S) [Mass/Vol] 2.3 g/dL Normal 2.2-4.2 [facility] Comment on above: Order Comment: 111.2 Performed By: #### L 501.2300, L500.4050, L501.9060, L100.0100 #### [facility] [address] [place], [address] Glucose [Mass/Vol] 123 mg/dL High 70-99 [facility] Comment on above: Order Comment: 111.2 Performed By: #### L 501.2300, L500.4050, L501.9060, L100.0100 #### [facility] [address] [place], [address] Potassium [Moles/Vol] 4.6 mmol/L Normal 3.3-5.1 [facility] Comment on above: Order Comment: 111.2 Performed By: #### L 501.2300, L500.4050, L501.9060, L100.0100 #### [facility] [address] [place], [address] Sodium [Moles/Vol] 140 mmol/L Normal 133-145 [facility] Comment on above: Order Comment: 111.2 Performed By: #### L 501.2300, L500.4050, L501.9060, L100.0100 #### [facility] [address] [place], [address] T PROT 5.9 g/dL Normal 5.9-8.4 [facility] Comment on above: Order Comment: 111.2 Performed By: #### L 501.2300, L500.4050, L501.9060, L100.0100 #### [facility] [address] [place], [address] Urea nitrogen [Mass/Vol] 25 mg/dL High 4-19 [facility] Comment on above: Order Comment: 111.2 Performed By: #### L 501.2300, L500.4050, L501.9060, L100.0100 #### [facility] [address] [place], [address] Eosinophil percentageOrdered By: Adam Ferraro on 04-24-2025 Eosinophils/100 WBC (Bld) 5.1 % High 0-5 [facility] Erythrocyte distribution wid th ratioOrdered By: Adam Ferraro on 04-24-2025 Erythrocyte distribution width (RBC) [Ratio] 13.1 % 11.6-14.6 [facility] Erythrocyte distribution wid th standard deviationOrdered By: Adam Ferraro on 04-24-2025 Erythrocyte distribution width (RBC) [Ratio] 43.9 fl 35.1-43.9 [facility] Glomerular filtration rate ( GFR) estimation/1.73 sq m using serum, plasma, or whole bOrdered By: Adam Ferraro on 04-24-2025 GFR/1.73 sq M.predicted among non-blacks MDRD (S/P/Bld) [Vol rate/Area] 30 mL/min/{1.73_m2} Low >60 [facility] Comment on above: mL/min/1.73m2 CKD-EP I Creatinine Equation (2020) Hematocrit Auto (Bld) [Volum e fraction]Ordered By: Adam Ferraro on 04-24-2025 Hematocrit (Bld) [Volume fraction] 38.2 % Low 40-54 [facility] Hemoglobin measurementOrdere d By: Adam Ferraro on 04-24-2025 Hemoglobin (Bld) [Mass/Vol] 12.7 g/dL Low 13.0-16.5 [facility] Immature granulocytes/100 WB C Auto (Bld)Ordered By: Adam Ferraro on 04-24-2025 Immature granulocytes/100 WBC (Bld) 0.700 % 0.0-0.9 [facility] Comment on above: IG% - Immature Granu locytes (promyelocytes, myelocytes and metamyelocytes) > 1% indicates that a LEFT SHIFT is Present. Laboratory - Chemistry and C hemistry - challengeOrdered By: Adam Ferraro on 04-24-2025 AST [Catalytic activity/Vol] 16 U/L <38 [facility] Lithiumon 04-24-2025 LI 0.60 mmol/L Normal 0.60-1.20 [facility] Comment on above: Order Comment: 111.2 [id number] Performed By: #### L 501.2300, L500.4050, L501.9060, L100.0100 #### [facility] [address] [place], [address] MCV (mean corpuscular volume ) determinationOrdered By: Adam Ferraro on 04-24-2025 MCV (RBC) [Entitic vol] 91.4 fL 80-94 [facility] Mean corpuscular hemoglobin (MCH) determinationOrdered By: Adam Ferraro on 04-24-2025 MCH (RBC) [Entitic mass] 30.4 pg 27.0-32.0 [facility] Mean corpuscular hemoglobin concentration (MCHC) determinationOrdered By: Adam Ferraro on 04-24-2025 MCHC (RBC) [Mass/Vol] 33.2 g/dL 32-36 [facility] Mean platelet volume determi nationOrdered By: Adam Ferraro on 04-24-2025 Platelet mean volume (Bld) [Entitic vol] 9.4 fL 6.2-12.0 [facility] Monocyte percentageOrdered B y: Adam Ferraro on 04-24-2025 Monocytes/100 WBC (Bld) 9.9 % 0-10 [facility] Neutrophil percentageOrdered By: Adam Ferraro on 04-24-2025 Neutrophils/100 WBC (Bld) 62.2 % 47-70 [facility] Nucleated red blood cell per centageOrdered By: Adam Ferraro on 04-24-2025 Nucleated RBC/100 WBC (Bld) [Ratio] 0 % 0-5 [facility] Phosphoruson 04-24-2025 Phosphate [Mass/Vol] 4.8 mg/dL High 2.7-4.5 [facility] Comment on above: Order Comment: 111.2 Performed By: #### L 501.2300, L500.4050, L501.9060, L100.0100 #### [facility] [address] [place], [address] Platelet countOrdered By: Sabino Ferraro on 04-24-2025 Platelets (Bld) [#/Vol] 245 10*3/uL 150-450 [facility] Potassium measurement (mass/ volume)Ordered By: Adam Ferraro on 04-24-2025 Potassium (Unsp spec) [Mass/Vol] 4.6 mmol/L 3.3-5.1 [facility] RBC Auto (Bld) [#/Vol]Ordere d By: Adam Ferraro on 04-24-2025 RBC (Bld) [#/Vol] 4.18 10*6/uL Low 4.6-6.2 [facility] Serum creatinine measurement (mass/volume)Ordered By: Adam Ferraro on 04-24-2025 Creatinine [Mass/Vol] 2.41 mg/dL High 0.70-1.20 [facility] Serum globulin measurementOr dered By: Adam Ferraro on 04-24-2025 Globulin (S) [Mass/Vol] 2.3 g/dL 2.2-4.2 [facility] Serum glucose measurement (m ass/volume)Ordered By: Adam Ferraro on 04-24-2025 Glucose [Mass/Vol] 123 mg/dL High 70-99 [facility] Serum or plasma alanine sesay otransferase (ALT) measurementOrdered By: Adam Ferraro on 04-24-2025 ALT [Catalytic activity/Vol] 11 U/L <47 [facility] Serum or plasma albumin you urement (mass/volume)Ordered By: Adam Ferraro on 04-24-2025 Albumin [Mass/Vol] 3.5 g/dL 3.4-4.8 [facility] Serum or plasma albumin/glob ulin mass ratioOrdered By: Adam Ferraro on 04-24-2025 Albumin/Globulin [Mass ratio] 1.5 {ratio} 0.9-2.4 [facility] Serum or plasma alkaline hal sphatase measurementOrdered By: Adam Ferraro on 04-24-2025 ALP [Catalytic activity/Vol] 76 U/L 40-129 [facility] Serum or plasma calcium you urement (mass/volume)Ordered By: Adam Ferraro on 04-24-2025 Calcium [Mass/Vol] 9.3 mg/dL 7.6-11.0 [facility] Serum or plasma urea nitroge n measurement (mass/volume)Ordered By: Adam Ferraro on 04-24-2025 Urea nitrogen [Mass/Vol] 25 mg/dL High 4-19 [facility] Sodium levelOrdered By: Spike Ferraro on 04-24-2025 Sodium [Moles/Vol] 140 mmol/L 133-145 [facility] Total proteinOrdered By: Benoit Ferraro on 04-24-2025 Protein [Mass/Vol] 5.9 g/dL 5.9-8.4 [facility] White blood cell (WBC) count Ordered By: Adam Ferraro on 04-24-2025 WBC (Bld) [#/Vol] 10.3 10*3/uL 4.4-11.0 [facility] Lithiumon 04-01-2025 LI 0.64 mmol/L Normal 0.60-1.20 [facility] Comment on above: Order Comment: 111.2 [id number] Performed By: #### L 501.9060 #### [facility] [address] [place], [place] [address] [place], [address] Serum or plasma uric acid me asurement (mass/volume)Ordered By: Alfredo Phipps on 03-27-2025 Urate [Mass/Vol] 6.5 mg/dL 3.5-7.2 [facility] Comment on above: The drugs N-Acetylcy steine and Metamizole may falsely depress this assay. Uric Acidon 03-27-2025 URIC 6.5 mg/dL Normal 3.5-7.2 [facility] Comment on above: Order Comment: 111-2 Result Comment: The drugs N-Acetylcysteine and Metamizole may falsely depress this assay. Performed By: #### L 501.1400 #### [facility] [address] [place], [place], [id number] Microalb:Creat Ratio,Random URon 03-05-2025 Creatinine [Mass/Vol] 72.80 mg/dL Normal 39.00- 259. 00 [facility] Comment on above: Performed By: #### L 501.1400 #### [facility] [address] [place], [address] MALB:CREAT UNABLE TO CALCULATE Normal [facility] Comment on above: Performed By: #### L 501.1400 #### [facility] [address] [place], [place], [id number] MICROALBUMIN,UR < 12.0 Normal NO RANGE EST. [facility] Comment on above: Performed By: #### L 501.1400 #### [facility] [address] [place], [place], [id number] Microalbumin/creat ratio urO rdered By: Adam Ferraro on 03-04-2025 Urine microalbumin/creatinine ratio measurement UNABLE TO CALCULATE mg/g CRE [facility] Random urine creatinine you urement (mass/volume)Ordered By: Adam Ferraro on 03-04-2025 Creatinine Unsp time (U) [Mass/Vol] 72.80 mg/dL 39.00-259. 00 [facility] Urine albumin measurement [facility] detection limit of 20 mg/L or less (mass/volume)Ordered By: Adam Ferraro on 03-04-2025 Albumin DL <= 20 mg/L (U) [Mass/Vol] < 12.0 mg/L NO RANGE EST. [facility] Absolute lymphocyte countOrd ered By: Alfredo Phipps on 02-27-2025 Lymphocytes Auto (Unsp spec) [#/Vol] 1.42 10*3/uL 0.83-4.51 [facility] Absolute neutrophil countOrd ered By: Alfredo Phipps on 02-27-2025 Neutrophils (Bld) [#/Vol] 17.7 10*3/uL High 2.0-7.7 [facility] Anion gap in Serum or Plasma Ordered By: Alfredo Phipps on 02-27-2025 Anion gap [Moles/Vol] 12 mmol/L 5-15 [facility] Automated lymphocyte count a s percentage of total leukocytesOrdered By: Alfredo Phipps on 02-27-2025 Lymphocytes/100 WBC Auto (Unsp spec) 6.9 % Low 19-41 [facility] BUN/creatinine ratioOrdered By: Alfredo Phipps on 02-27-2025 Urea nitrogen/Creatinine [Mass ratio] 12.7 mg/mg 10- [facility] Basophil percentageOrdered B y: Alfredo Phipps on 02-27-2025 Basophils/100 WBC (Bld) 0.2 % 0-1 [facility] Bilirubin directOrdered By: Alfredo Phipps on 02-27-2025 Bilirubin.direct [Mass/Vol] 0.10 mg/dL 0.00-0.30 [facility] Bilirubin, Directon 02-28-20 25 Bilirubin.direct [Mass/Vol] 0.10 mg/dL Normal 0.00-0.30 [facility] Comment on above: Order Comment: 111-2 Performed By: #### L 501.1400 #### [facility] [address] [place], [place], [id number] Bilirubin, totalOrdered By: Alfredo Phipps on 02-27-2025 Bilirubin [Mass/Vol] 0.19 mg/dL 0.00-1.30 [facility] CBC W/Diff, Automatedon 02-12 Absolute Lymph 1.42 X10 3/uL Normal 0.83-4.51 [facility] Comment on above: Order Comment: 111-2 Performed By: #### L 501.1400 #### [facility] [address] [place], [place], [id number] Absolute Neut 17.7 X10 3/uL High 2.0-7.7 [facility] Comment on above: Order Comment: 111-2 Performed By: #### L 501.1400 #### [facility] [address] [place], [address] Basophils/100 WBC (Bld) 0.2 % Normal 0-1 [facility] Comment on above: Order Comment: 111-2 Performed By: #### L 501.1400 #### [facility] [address] [place], [address] Eosinophils/100 WBC (Bld) 0.0 % Normal 0-5 [facility] Comment on above: Order Comment: 111-2 Performed By: #### L 501.1400 #### [facility] [address] [place], [address] Erythrocyte distribution width (RBC) [Ratio] 13.3 % Normal 11.6-14.6 [facility] Comment on above: Order Comment: 111-2 Performed By: #### L 501.1400 #### [facility] [address] [place], [address] Hematocrit (Bld) [Volume fraction] 39.0 % Low 40-54 [facility] Comment on above: Order Comment: 111-2 Performed By: #### L 501.1400 #### [facility] [address] [place], [address] Hemoglobin (Bld) [Mass/Vol] 13.1 g/dL Normal 13.0-16.5 [facility] Comment on above: Order Comment: 111-2 Performed By: #### L [id number] #### [facility] [address] [place], [address] IG% 0.900 Normal 0.0-0.9 [facility] Comment on above: Order Comment: 111-2 Result Comment: IG% - Immature Granulocytes (promyelocytes, myelocytes and metamyelocytes) > 1% indicates that a LEFT SHIFT is Present. Performed By: #### L [id number] #### [facility] [address] [place], [address] Lymphocytes/100 WBC (Bld) 6.9 % Low 19-41 [facility] Comment on above: Order Comment: 111-2 Performed By: #### L 501.1400 #### [facility] [address] [place], [address] MCH (RBC) [Entitic mass] 30.1 pg Normal 27.0-32.0 [facility] Comment on above: Order Comment: 111-2 Performed By: #### L [id number] #### [facility] [address] [place], [address] MCHC (RBC) [Mass/Vol] 33.6 g/dL Normal 32-36 [facility] Comment on above: Order Comment: 111-2 Performed By: #### L [id number] #### [facility] [address] [place], [address] MCV (RBC) [Entitic vol] 89.7 fL Normal 80-94 [facility] Comment on above: Order Comment: 111-2 Performed By: #### L 501.1400 #### [facility] [address] [place], [address] Monocytes/100 WBC (Bld) 6.4 % Normal 0-10 [facility] Comment on above: Order Comment: 111-2 Performed By: #### L [id number] #### [facility] [address] [place], [address] Neutrophils/100 WBC (Bld) 85.6 % High 47-70 [facility] Comment on above: Order Comment: 111-2 Performed By: #### L [id number] #### [facility] [address] [place], [address] Nucleated RBC (Bld) [#/Vol] 0 10*3/uL Normal 0-5 [facility] Comment on above: Order Comment: 111-2 Performed By: #### L [id number] #### [facility] [address] [place], [address] Platelet mean volume (Bld) [Entitic vol] 9.3 fL Normal 6.2-12.0 [facility] Comment on above: Order Comment: 111-2 Performed By: #### L [id number] #### [facility] [address] [place], [address] Platelets (Bld) [#/Vol] 274 10*3/uL Normal 150-450 [facility] Comment on above: Order Comment: 111-2 Performed By: #### L [id number] #### [facility] [address] [place], [address] RBC (Bld) [#/Vol] 4.35 10*6/uL Low 4.6-6.2 [facility] Comment on above: Order Comment: 111-2 Performed By: #### L [id number] #### [facility] [address] [place], [address] RDW SD 43.8 fl Normal 35.1-43.9 [facility] Comment on above: Order Comment: 111-2 Performed By: #### L [id number] #### [facility] [address] [place], [address] WBC (Bld) [#/Vol] 20.6 10*3/uL High 4.4-11.0 [facility] Comment on above: Order Comment: 111-2 Performed By: #### L [id number] #### [facility] [address] [place], [address] Carbon dioxide, total [Moles /volume] in Central venous bloodOrdered By: Alfredo Phipps on 02-27-2025 CO2 [Moles/Vol] 20.5 mmol/L Low 21.0-32.0 [facility] Chloride assayOrdered By: Chan Fiore on 02-27-2025 Chloride [Moles/Vol] 105 mmol/L 98-108 [facility] Comprehensive Metabolic Prof ilon 02-27-2025 Albumin [Mass/Vol] 3.9 g/dL Normal 3.4-4.8 [facility] Comment on above: Order Comment: 111-2 Performed By: #### L 501.1400 #### [facility] [address] [place], [address] Albumin/Globulin [Mass ratio] 1.6 {ratio} Normal 0.9-2.4 [facility] Comment on above: Order Comment: 111-2 Performed By: #### L 501.1400 #### [facility] [address] [place], [address] ALK PHOS 66 U/L Normal 40-129 [facility] Comment on above: Order Comment: 111-2 Performed By: #### L [id number] #### [facility] [address] [place], [address] ALT [Catalytic activity/Vol] 13 U/L Normal <=46 [facility] Comment on above: Order Comment: 111-2 Performed By: #### L [id number] #### [facility] [address] [place], [address] AST [Catalytic activity/Vol] 11 U/L Normal <=37 [facility] Comment on above: Order Comment: 111-2 Performed By: #### L [id number] #### [facility] [address] [place], [address] Bilirubin [Mass/Vol] 0.19 mg/dL Normal 0.00-1.30 [facility] Comment on above: Order Comment: 111-2 Performed By: #### L [id number] #### [facility] [address] [place], [address] BUN/CRE 12.7 RATIO Normal 10-20 [facility] Comment on above: Order Comment: 111-2 Performed By: #### L [id number] #### [facility] [address] [place], [address] Calcium [Mass/Vol] 9.8 mg/dL Normal 7.6-11.0 [facility] Comment on above: Order Comment: 111-2 Performed By: #### L [id number] #### [facility] [address] [place], [address] Chloride [Moles/Vol] 105 mmol/L Normal 98-108 [facility] Comment on above: Order Comment: 111-2 Performed By: #### L [id number] #### [facility] [address] [place], [address] CO2 [Moles/Vol] 20.5 mmol/L Low 21.0-32.0 [facility] Comment on above: Order Comment: 111-2 Performed By: #### L [id number] #### [facility] [address] [place], [address] Creatinine [Mass/Vol] 2.32 mg/dL High 0.70-1.20 [facility] Comment on above: Order Comment: 111-2 Performed By: #### L [id number] #### [facility] [address] [place], [address] GAP 12 Normal 5-15 [facility] Comment on above: Order Comment: 111-2 Performed By: #### L [id number] #### [facility] [address] [place], [address] GFR/1.73 sq M.predicted among non-blacks MDRD (S/P/Bld) [Vol rate/Area] 31 mL/min/{1.73_m2} Low >60 [facility] Comment on above: Order Comment: 111-2 Result Comment: mL/m in/1.73m2 CKD-EPI Creatinine Equation (2020) Performed By: #### L 501.1400 #### [facility] [address] [place], [address] Globulin (S) [Mass/Vol] 2.4 g/dL Normal 2.2-4.2 [facility] Comment on above: Order Comment: 111-2 Performed By: #### L 501.1400 #### [facility] [address] [place], [address] Glucose [Mass/Vol] 134 mg/dL High 70-99 [facility] Comment on above: Order Comment: 111-2 Performed By: #### L [id number] #### [facility] [address] [place], [address] Potassium [Moles/Vol] 4.4 mmol/L Normal 3.3-5.1 [facility] Comment on above: Order Comment: 111-2 Performed By: #### L [id number] #### [facility] [address] [place], [address] Sodium [Moles/Vol] 138 mmol/L Normal 133-145 [facility] Comment on above: Order Comment: 111-2 Performed By: #### L [id number] #### [facility] [address] [place], [address] T PROT 6.2 g/dL Normal 5.9-8.4 [facility] Comment on above: Order Comment: 111-2 Performed By: #### L [id number] #### [facility] [address] [place], [address] Urea nitrogen [Mass/Vol] 29 mg/dL High 4-19 [facility] Comment on above: Order Comment: 111-2 Performed By: #### L 501.1400 #### [facility] [address] [place], [address] Eosinophil percentageOrdered By: Alfredo Phipps on 02-27-2025 Eosinophils/100 WBC (Bld) 0.0 % 0-5 [facility] Erythrocyte distribution wid th (RBC) [Ratio]Ordered By: Alfredo Phipps on 02-27-2025 Erythrocyte distribution width (RBC) [Entitic vol] 43.8 fL 35.1-43.9 [facility] Erythrocyte distribution wid th ratioOrdered By: Alfredo Phipps on 02-27-2025 Erythrocyte distribution width (RBC) [Ratio] 13.3 % 11.6-14.6 [facility] Erythrocyte distribution wid th standard deviationOrdered By: Alfredo Phipps on 02-27-2025 Erythrocyte distribution width (RBC) [Ratio] 43.8 fl 35.1-43.9 [facility] GFR/1.73 sq M.predicted miles g non-blacks MDRD (S/P/Bld) [Vol rate/Area]Ordered By: Alfredo Phipps on 02-27-2025 Estimated GFR (MDRD) Non-Af Amer 31 Low >60 [facility] Comment on above: mL/min/1.73m2 CKD-EP I Creatinine Equation (2020) Glomerular filtration rate ( GFR) estimation/1.73 sq m using serum, plasma, or whole bOrdered By: Alfredo Phipps on 02-27-2025 GFR/1.73 sq M.predicted among non-blacks MDRD (S/P/Bld) [Vol rate/Area] 31 mL/min/{1.73_m2} Low >60 [facility] Comment on above: mL/min/1.73m2 CKD-EP I Creatinine Equation (2020) Hematocrit Auto (Bld) [Volum e fraction]Ordered By: Alfredo Phipps on 02-27-2025 Hematocrit (Bld) [Volume fraction] 39.0 % Low 40-54 [facility] Hemoglobin measurementOrdere d By: Alfredo Phipps on 02-27-2025 Hemoglobin (Bld) [Mass/Vol] 13.1 g/dL 13.0-16.5 [facility] Immature granulocytes/100 WB C Auto (Bld)Ordered By: Alfredo Phipps on 02-27-2025 Immature granulocytes/100 WBC (Bld) 0.900 % 0.0-0.9 [facility] Comment on above: IG% - Immature Granu locytes (promyelocytes, myelocytes and metamyelocytes) > 1% indicates that a LEFT SHIFT is Present. Laboratory - Chemistry and C hemistry - challengeOrdered By: Alfredo Phipps on 02-27-2025 AST [Catalytic activity/Vol] 11 U/L <38 [facility] Lithiumon 02-27-2025 LI 0.60 mmol/L Normal 0.60-1.20 [facility] Comment on above: Order Comment: 111-2 Performed By: #### L 501.1400 #### [facility] [address] [place], [address] [place] levelOrdered By: Jennifer Phipps on 02-27-2025 [place] Level 0.60 mmol/L 0.60-1.20 [facility] Lymphocytes Auto (Unsp spec) [#/Vol]Ordered By: Alfredo Phipps on 02-27-2025 Lymphocytes (Bld) [#/Vol] 1.42 10*3/uL 0.83-4.51 [facility] Lymphocytes/100 WBC Auto (Un sp spec)Ordered By: Alfredo Phipps on 02-27-2025 Lymphocytes/100 WBC (Bld) 6.9 % Low 19-41 [facility] MCV (mean corpuscular volume ) determinationOrdered By: Alfredo Phipps on 02-27-2025 MCV (RBC) [Entitic vol] 89.7 fL 80-94 [facility] Mean corpuscular hemoglobin (MCH) determinationOrdered By: Alfredo Phipps on 02-27-2025 MCH (RBC) [Entitic mass] 30.1 pg 27.0-32.0 [facility] Mean corpuscular hemoglobin concentration (MCHC) determinationOrdered By: Alfredo Phipps on 02-27-2025 MCHC (RBC) [Mass/Vol] 33.6 g/dL 32-36 [facility] Mean platelet volume determi nationOrdered By: Alfredo Phipps on 02-27-2025 Platelet mean volume (Bld) [Entitic vol] 9.3 fL 6.2-12.0 [facility] Monocyte percentageOrdered B y: Alfredo Phipps on 02-27-2025 Monocytes/100 WBC (Bld) 6.4 % 0-10 [facility] Neutrophil percentageOrdered By: Alfredo Phipps on 02-27-2025 Neutrophils/100 WBC (Bld) 85.6 % High 47-70 [facility] Nucleated red blood cell per centageOrdered By: Alfredo Phipps on 02-27-2025 Nucleated RBC/100 WBC (Bld) [Ratio] 0 % 0-5 [facility] Platelet countOrdered By: Chan Fiore on 02-27-2025 Platelets (Bld) [#/Vol] 274 10*3/uL 150-450 [facility] Potassium (Unsp spec) [Mass/ Vol]Ordered By: Alfredo Phipps on 02-27-2025 Potassium [Moles/Vol] 4.4 mmol/L 3.3-5.1 [facility] Potassium measurement (mass/ volume)Ordered By: Alfredo Phipps on 02-27-2025 Potassium (Unsp spec) [Mass/Vol] 4.4 mmol/L 3.3-5.1 [facility] RBC Auto (Bld) [#/Vol]Ordere d By: Alfredo Phipps on 02-27-2025 RBC (Bld) [#/Vol] 4.35 10*6/uL Low 4.6-6.2 [facility] Serum creatinine measurement (mass/volume)Ordered By: Alfredo Phipps on 02-27-2025 Creatinine [Mass/Vol] 2.32 mg/dL High 0.70-1.20 [facility] Serum globulin measurementOr dered By: Alfredo Phipps on 02-27-2025 Globulin (S) [Mass/Vol] 2.4 g/dL 2.2-4.2 [facility] Serum glucose measurement (m ass/volume)Ordered By: Alfredo Phipps on 02-27-2025 Glucose [Mass/Vol] 134 mg/dL High 70-99 [facility] Serum or plasma alanine sesay otransferase (ALT) measurementOrdered By: Alfredo Phipps on 02-27-2025 ALT [Catalytic activity/Vol] 13 U/L <47 [facility] Serum or plasma albumin you urement (mass/volume)Ordered By: Alfredo Phipps on 02-27-2025 Albumin [Mass/Vol] 3.9 g/dL 3.4-4.8 [facility] Serum or plasma albumin/glob ulin mass ratioOrdered By: Alfredo Phipps on 02-27-2025 Albumin/Globulin [Mass ratio] 1.6 {ratio} 0.9-2.4 [facility] Serum or plasma alkaline hal sphatase measurementOrdered By: Alfredo Phipps on 02-27-2025 ALP [Catalytic activity/Vol] 66 U/L 40-129 [facility] Serum or plasma calcium you urement (mass/volume)Ordered By: Alfredo Phipps on 02-27-2025 Calcium [Mass/Vol] 9.8 mg/dL 7.6-11.0 [facility] Serum or plasma urea nitroge n measurement (mass/volume)Ordered By: Alfredo Phipps on 02-27-2025 Urea nitrogen [Mass/Vol] 29 mg/dL High 4-19 [facility] Sodium levelOrdered By: Raffi Phipps on 02-27-2025 Sodium [Moles/Vol] 138 mmol/L 133-145 [facility] Total proteinOrdered By: Jennifer Phipps on 02-27-2025 Protein [Mass/Vol] 6.2 g/dL 5.9-8.4 [facility] White blood cell (WBC) count Ordered By: Alfredo Phipps on 02-27-2025 WBC (Bld) [#/Vol] 20.6 10*3/uL High 4.4-11.0 [facility] Serum or plasma uric acid me asurement (mass/volume)Ordered By: Adam Ferraro on 02-25-2025 Urate [Mass/Vol] 6.3 mg/dL 3.5-7.2 [facility] Comment on above: The drugs N-Acetylcy steine and Metamizole may falsely depress this assay. Uric Acidon 02-25-2025 URIC 6.3 mg/dL Normal 3.5-7.2 [facility] Comment on above: Order Comment: 111.2 Result Comment: The drugs N-Acetylcysteine and Metamizole may falsely depress this assay. Performed By: #### L 100.0500, L500.4050, L501.1400 #### [facility] [address] [place], [place], [id number] Calculated very low density lipoprotein (VLDL) cholesterol measurementOrdered By: Alfredo Phipps on 02-11-2025 Calculated very low density lipoprotein (VLDL) cholesterol measurement 43 mg/dL High 5-40 [facility] VLDL Cholesterol 43 mg/dL High 5-40 [facility] LDL calc ser/plasOrdered By: Alfredo Phipps on 02-11-2025 Cholesterol in LDL [Mass/Vol] 67 mg/dL [facility] Comment on above: Ortovgmipo=364-926 m g/dL & Higher Dokv=392 mg/dL or greater LDL Cholesterol, Calculated 67 mg/dL [facility] Comment on above: Twomwsdqcm=820-349 m g/dL & Higher Dqgg=494 mg/dL or greater Lipid Profileon 02-11-2025 CHOL:HDL 4.53 Normal [facility] Comment on above: Order Comment: 111-2 Performed By: #### L [id number] #### [facility] [address] [place], [address] (937) Cholesterol [Mass/Vol] 141 mg/dL Normal <=200 [facility] Comment on above: Order Comment: 111-2 Result Comment: Chol esterol level, Desirable <200 mg/dL Borderline high cholesterol 200-239 mg/dL High cholesterol >=240 mg/dL Recommendations of the NCEP Adult Treatment Panel for the following risk-cutoff thresholds for the [place] population. Performed By: #### L 501.1400 #### [facility] [address] [place], [address] (310) Cholesterol in HDL [Mass/Vol] 31 mg/dL Low [facility] Comment on above: Order Comment: 111-2 Result Comment: Fabienne onal Cholesterol Education Program (NCEP) guidelines: <40 mg/dL: Low HDL-cholesterol (major risk factor for CHD) >= 60 mg/dL: High HDL-cholesterol (negative risk factor for CHD) HDL-cholesterol is affected by a number of factors, e.g. smoking, exercise, hormones, sex and age. Performed By: #### L 501.1400 #### [facility] [address] [place], [address] (515) Cholesterol in LDL [Mass/Vol] 67 mg/dL Normal [facility] Comment on above: Order Comment: 111-2 Result Comment: Bord zvmhrx=887-951 mg/dL Higher Qknt=999 mg/dL or greater Performed By: #### L 501.1400 #### [facility] [address] [place], [place], [id number] Cholesterol in VLDL [Mass/Vol] 43 mg/dL High 5-40 [facility] Comment on above: Order Comment: 111-2 Performed By: #### L 501.1400 #### [facility] [address] [place], [place], [address] Triglyceride [Mass/Vol] 215 mg/dL High [facility] Comment on above: Order Comment: 111-2 Result Comment: The drugs N-Acetylcysteine and Metamizole may falsely depress this assay. Normal range: <150 mg/dL Borderline High: 150-199 mg/dL High: 200-499 mg/dL Very High: >500 mg/dL Performed By: #### L 501.1400 #### [facility] [address] [place], [place], [id number] Screening total cholesterol/ high density lipoprotein (HDL) cholesterol ratioOrdered By: Alfredo Phipps on 02-11-2025 Cholesterol.total/Choles terol in HDL [Mass ratio] 4.53 {ratio} [facility] Serum or plasma cholesterol in HDL measurement (mass/volume)Ordered By: Alfredo Phipps on 02-11-2025 Cholesterol in HDL [Mass/Vol] 31 mg/dL Low >40 [facility] Comment on above: National Cholesterol Education Program (NCEP) guidelines:<40 mg/dL: Low HDL-cholesterol (major risk factor for CHD)>= 60 mg/dL: High HDL-cholesterol (negative risk factor for CHD)HDL-cholesterol is affected by a number of factors, e.g. smoking, exercise, hormones, sex and age. Serum or plasma cholesterol measurement (mass/volume)Ordered By: Alfredo Phipps on 02-11-2025 Cholesterol [Mass/Vol] 141 mg/dL <201 [facility] Comment on above: Cholesterol level, D esirable <200 mg/dLBorderline high cholesterol 200-239 mg/dLHigh cholesterol >=240 mg/dLRecommendations of the NCEP Adult Treatment Panel for the following risk-cutoff thresholds for the [place] population. Triglycerides measurementOrd ered By: Alfredo Phipps on 02-11-2025 Triglyceride [Mass/Vol] 215 mg/dL High <199 [facility] Comment on above: The drugs N-Acetylcy steine and Metamizole may falsely depress this assay. Normal range: <150 mg/dLBorderline High: 150-199 mg/dLHigh: 200-499 mg/dLVery High: >500 mg/dL Hemoglobin A1con 02-06-2025 HbA1c (Bld) [Mass fraction] 5.8 % Normal <=5.6 [facility] Comment on above: Order Comment: 111-2 Performed By: #### L 501.1400 #### [facility] [address] [facility] [place], [place], [address] Hemoglobin A1c percentageOrd ered By: Alfredo Phipps on 02-06-2025 HbA1c (Bld) [Mass fraction] 5.8 % >5.7 [facility] Lithiumon 01-30-2025 LI 0.71 mmol/L Normal 0.60-1.20 [facility] Comment on above: Order Comment: 111.2 Performed By: #### L 100.0500, L500.4050, L501.1400 #### [facility] [address] [facility] [place], [place], [address] [place] levelOrdered By: Benoit Ferraro on 01-30-2025 [place] Level 0.71 mmol/L 0.60-1.20 [facility] Serum or plasma uric acid me asurement (mass/volume)Ordered By: Adam Ferraro on 01-25-2025 Urate [Mass/Vol] 6.2 mg/dL 3.5-7.2 [facility] Comment on above: The drugs N-Acetylcy steine and Metamizole may falsely depress this assay. Uric Acidon 01-25-2025 URIC 6.2 mg/dL Normal 3.5-7.2 [facility] Comment on above: Order Comment: URIC ACID ADDED TO 05/24/25 LABWORK Result Comment: The drugs N-Acetylcysteine and Metamizole may falsely depress this assay. Performed By: #### L 100.0500, L500.4050, L501.1400 #### [facility] [address] [place], [address] Microalb:Creat Ratio,Random URon 01-03-2025 Creatinine [Mass/Vol] 104.00 mg/dL Normal NO RAN GE EST. [facility] Comment on above: Performed By: #### L 501.2300, L500.4050, L501.9060, L100.0100 #### [facility] [address] [place], [address] MALB:CRE TNP Normal <30 mg/g CRE [facility] Comment on above: Performed By: #### L 501.2300, L500.4050, L501.9060, L100.0100 #### [facility] [address] [place], [address] MICROALBUMIN,UR < 5.0 Normal NO RANGE EST. [facility] Comment on above: Performed By: #### L 501.2300, L500.4050, L501.9060, L100.0100 #### [facility] [address] [place], [address] Random urine microalbumin me asurementOrdered By: Adam Ferraro on 01-03-2025 Urine Random Microalbumin < 5.0 mg/L NO RANGE EST. [facility] Urine albumin/creatinine rat io for detection of microalbuminuriaOrdered By: Adam Ferraro on 01-03-2025 Urine Microalbumin/Creatinine Ratio TNP [facility] Comment on above: Test not performed Urine creatinine measurement (mass/volume)Ordered By: Adam Ferraro on 01-03-2025 Creatinine (U) [Mass/Vol] 104.00 mg/dL NO RANGE EST. [facility] Absolute lymphocyte countOrd ered By: Adam Ferraro on 01-02-2025 Lymphocytes Auto (Unsp spec) [#/Vol] 2.41 10*3/uL 0.83-4.51 [facility] Absolute neutrophil countOrd ered By: Adam Muñozmele on 01-02-2025 Neutrophils (Bld) [#/Vol] 5.6 10*3/uL 2.0-7.7 [facility] Albumin to globulin ratioOrd ered By: Adam Muñozmele on 01-02-2025 Albumin/Globulin [Mass ratio] 1.0 {ratio} 0.9-2.4 [facility] Automated lymphocyte count a s percentage of total leukocytesOrdered By: Adam Muñozmele on 01-02-2025 Lymphocytes/100 WBC Auto (Unsp spec) 25.1 % [facility] Basophil percentageOrdered B y: Adam Muñozmele on 01-02-2025 Basophils/100 WBC (Bld) 1.1 % High 0-1 [facility] Bilirubin, totalOrdered By: Adam Muñozmele on 01-02-2025 Bilirubin [Mass/Vol] 0.30 mg/dL 0.20-1.00 [facility] Comment on above: For patients on eltr ombopag therapy, use of Dimension [place] TBIL is not recommended. Blood urea nitrogen (BUN)/cr eatinine ratioOrdered By: Adam Muñozmele on 01-02-2025 Urea nitrogen/Creatinine [Mass ratio] 12.6 mg/mg 10 [facility] CBC W/Diff, Automatedon 12-15 Absolute Lymph 2.41 X10 3/uL Normal 0.83-4.51 [facility] Comment on above: Order Comment: 111.2 Performed By: #### L 501.2300, L500.4050, L501.9060, L100.0100 #### [facility] [address] [place], [address] Absolute Neut 5.6 X10 3/uL Normal 2.0-7.7 [facility] Comment on above: Order Comment: 111.2 Performed By: #### L 501.2300, L500.4050, L501.9060, L100.0100 #### [facility] [address] [place], [address] Basophils/100 WBC (Bld) 1.1 % High 0-1 [facility] Comment on above: Order Comment: 111.2 Performed By: #### L 501.2300, L500.4050, L501.9060, L100.0100 #### [facility] [address] [place], [address] Eosinophils/100 WBC (Bld) 5.3 % High 0-5 [facility] Comment on above: Order Comment: 111.2 Performed By: #### L 501.2300, L500.4050, L501.9060, L100.0100 #### [facility] [address] [place], [address] Erythrocyte distribution width (RBC) [Ratio] 12.9 % Normal 11.6-14.6 [facility] Comment on above: Order Comment: 111.2 Performed By: #### L 501.2300, L500.4050, L501.9060, L100.0100 #### [facility] [address] [place], [address] Hematocrit (Bld) [Volume fraction] 40.5 % Normal 40-54 [facility] Comment on above: Order Comment: 111.2 Performed By: #### L 501.2300, L500.4050, L501.9060, L100.0100 #### [facility] [address] [place], [address] Hemoglobin (Bld) [Mass/Vol] 13.4 g/dL Normal 13.0-16.5 [facility] Comment on above: Order Comment: 111.2 Performed By: #### L 501.2300, L500.4050, L501.9060, L100.0100 #### [facility] [address] [place], [address] IG% 0.500 Normal 0.0-0.9 [facility] Comment on above: Order Comment: 111.2 Result Comment: IG% - Immature Granulocytes (promyelocytes, myelocytes and metamyelocytes) > 1% indicates that a LEFT SHIFT is Present. Performed By: #### L 501.2300, L500.4050, L501.9060, L100.0100 #### [facility] [address] [place], [address] Lymphocytes/100 WBC (Bld) 25.1 % Normal 19-41 [facility] Comment on above: Order Comment: 111.2 Performed By: #### L 501.2300, L500.4050, L501.9060, L100.0100 #### [facility] [address] [place], [address] MCH (RBC) [Entitic mass] 30.0 pg Normal 27.0-32.0 [facility] Comment on above: Order Comment: 111.2 Performed By: #### L 501.2300, L500.4050, L501.9060, L100.0100 #### [facility] [address] [place], [address] MCHC (RBC) [Mass/Vol] 33.1 g/dL Normal 32-36 [facility] Comment on above: Order Comment: 111.2 Performed By: #### L 501.2300, L500.4050, L501.9060, L100.0100 #### [facility] [address] [place], [address] MCV (RBC) [Entitic vol] 90.8 fL Normal 80-94 [facility] Comment on above: Order Comment: 111.2 Performed By: #### L 501.2300, L500.4050, L501.9060, L100.0100 #### [facility] [address] [place], [address] Monocytes/100 WBC (Bld) 9.4 % Normal 0-10 [facility] Comment on above: Order Comment: 111.2 Performed By: #### L 501.2300, L500.4050, L501.9060, L100.0100 #### [facility] [address] [place], [address] Neutrophils/100 WBC (Bld) 58.6 % Normal 47-70 [facility] Comment on above: Order Comment: 111.2 Performed By: #### L 501.2300, L500.4050, L501.9060, L100.0100 #### [facility] [address] [place], [address] Nucleated RBC (Bld) [#/Vol] 0 10*3/uL Normal 0-5 [facility] Comment on above: Order Comment: 111.2 Performed By: #### L 501.2300, L500.4050, L501.9060, L100.0100 #### [facility] [address] [place], [address] Platelet mean volume (Bld) [Entitic vol] 9.5 fL Normal 6.2-12.0 [facility] Comment on above: Order Comment: 111.2 Performed By: #### L 501.2300, L500.4050, L501.9060, L100.0100 #### [facility] [address] [place], [address] Platelets (Bld) [#/Vol] 247 10*3/uL Normal 150-450 [facility] Comment on above: Order Comment: 111.2 Performed By: #### L 501.2300, L500.4050, L501.9060, L100.0100 #### [facility] [address] [place], [address] RBC (Bld) [#/Vol] 4.46 10*6/uL Low 4.6-6.2 [facility] Comment on above: Order Comment: 111.2 Performed By: #### L 501.2300, L500.4050, L501.9060, L100.0100 #### [facility] [address] [place], [address] RDW SD 41.9 fl Normal 35.1-43.9 [facility] Comment on above: Order Comment: 111.2 Performed By: #### L 501.2300, L500.4050, L501.9060, L100.0100 #### [facility] [address] [place], [address] WBC (Bld) [#/Vol] 9.6 10*3/uL Normal 4.4-11.0 [facility] Comment on above: Order Comment: 111.2 Performed By: #### L 501.2300, L500.4050, L501.9060, L100.0100 #### [facility] [address] [place], [address] Carbon dioxide measurementOr dered By: Adam Ferraro on 01-02-2025 CO2 [Moles/Vol] 25.0 mmol/L 21.0-32.0 [facility] Chloride measurementOrdered By: Adam Ferraro on 01-02-2025 Chloride [Moles/Vol] 109 mmol/L High 98-107 [facility] Comprehensive Metabolic Prof ilon 01-02-2025 Albumin [Mass/Vol] 3.1 g/dL Low 3.2-5.0 [facility] Comment on above: Order Comment: 111.2 Performed By: #### L 501.2300, L500.4050, L501.9060, L100.0100 #### [facility] [address] [place], [address] Albumin/Globulin [Mass ratio] 1.0 {ratio} Normal 0.9-2.4 [facility] Comment on above: Order Comment: 111.2 Performed By: #### L 501.2300, L500.4050, L501.9060, L100.0100 #### [facility] [address] [place], [address] ALK P 81 U/L Normal 45-117 [facility] Comment on above: Order Comment: 111.2 Performed By: #### L 501.2300, L500.4050, L501.9060, L100.0100 #### [facility] [address] [place], [address] ALT [Catalytic activity/Vol] 17 U/L Normal 16-61 [facility] Comment on above: Order Comment: 111.2 Performed By: #### L 501.2300, L500.4050, L501.9060, L100.0100 #### [facility] [address] [place], [address] AST [Catalytic activity/Vol] 12 U/L Low 15-37 [facility] Comment on above: Order Comment: 111.2 Performed By: #### L 501.2300, L500.4050, L501.9060, L100.0100 #### [facility] [address] [place], [address] Bilirubin [Mass/Vol] 0.30 mg/dL Normal 0.20-1.00 [facility] Comment on above: Order Comment: 111.2 Result Comment: For patients on eltrombopag therapy, use of Dimension [place]el TBIL is not recommended. Performed By: #### L 501.2300, L500.4050, L501.9060, L100.0100 #### [facility] [address] [place], [address] BUN/CRE 12.6 RATIO Normal 10-20 [facility] Comment on above: Order Comment: 111.2 Performed By: #### L 501.2300, L500.4050, L501.9060, L100.0100 #### [facility] [address] [place], [address] CA,Total 9.4 mg/dL Normal 8.5-10.1 [facility] Comment on above: Order Comment: 111.2 Performed By: #### L 501.2300, L500.4050, L501.9060, L100.0100 #### [facility] [address] [place], [address] Chloride [Moles/Vol] 109 mmol/L High 98-107 [facility] Comment on above: Order Comment: 111.2 Performed By: #### L 501.2300, L500.4050, L501.9060, L100.0100 #### [facility] [address] [place], [address] CO2 [Moles/Vol] 25.0 mmol/L Normal 21.0-32.0 [facility] Comment on above: Order Comment: 111.2 Performed By: #### L 501.2300, L500.4050, L501.9060, L100.0100 #### [facility] [address] [place], [address] Creatinine [Mass/Vol] 2.14 mg/dL High 0.70-1.30 [facility] Comment on above: Order Comment: 111.2 Result Comment: The validity of the calculated GFR GFRAA in patients over 70 years has not been determined. Clinical correlation is essential. Performed By: #### L 501.2300, L500.4050, L501.9060, L100.0100 #### [facility] [address] [place], [address] EST GFR - AA 41 mL/min Low >60 [facility] Comment on above: Order Comment: 111.2 Result Comment: Afri can Afghan GFR Calc Performed By: #### L 501.2300, L500.4050, L501.9060, L100.0100 #### [facility] [address] [place], [address] GAP 7 Normal 5-15 [facility] Comment on above: Order Comment: 111.2 Performed By: #### L 501.2300, L500.4050, L501.9060, L100.0100 #### [facility] [address] [place], [address] GFR/1.73 sq M.predicted among non-blacks MDRD (S/P/Bld) [Vol rate/Area] 34 mL/min/{1.73_m2} Low >60 [facility] Comment on above: Order Comment: 111.2 Result Comment: Non- GFR Calc Performed By: #### L 501.2300, L500.4050, L501.9060, L100.0100 #### [facility] [address] [place], [address] Globulin (S) [Mass/Vol] 3.1 g/dL Normal 2.2-4.2 [facility] Comment on above: Order Comment: 111.2 Performed By: #### L 501.2300, L500.4050, L501.9060, L100.0100 #### [facility] [address] [place], [address] Glucose [Mass/Vol] 115 mg/dL High 74-106 [facility] Comment on above: Order Comment: 111.2 Result Comment: Fast ing Glucose result from 100 to 125 mg/dL suggests IMPAIRED HOMEOSTASIS per A.D.A. criteria. Performed By: #### L 501.2300, L500.4050, L501.9060, L100.0100 #### [facility] [address] [place], [address] Potassium [Moles/Vol] 4.1 mmol/L Normal 3.5-5.1 [facility] Comment on above: Order Comment: 111.2 Performed By: #### L 501.2300, L500.4050, L501.9060, L100.0100 #### [facility] [address] [place], [address] Sodium [Moles/Vol] 141 mmol/L Normal 136-145 [facility] Comment on above: Order Comment: 111.2 Performed By: #### L 501.2300, L500.4050, L501.9060, L100.0100 #### [facility] [address] [place], [address] T PROT 6.2 g/dL Low 6.4-8.2 [facility] Comment on above: Order Comment: 111.2 Performed By: #### L 501.2300, L500.4050, L501.9060, L100.0100 #### [facility] [address] [place], [address] Urea nitrogen [Mass/Vol] 27 mg/dL High 7-18 [facility] Comment on above: Order Comment: 111.2 Performed By: #### L 501.2300, L500.4050, L501.9060, L100.0100 #### [facility] [address] [place], [address] Eosinophil percentageOrdered By: Adam Ferraro on 01-02-2025 Eosinophils/100 WBC (Bld) 5.3 % High 0-5 [facility] Erythrocyte distribution wid th ratioOrdered By: Adam Ferraro on 01-02-2025 Erythrocyte distribution width (RBC) [Ratio] 12.9 % 11.6-14.6 [facility] Erythrocyte distribution wid th standard deviationOrdered By: Adam Ferraro on 01-02-2025 Erythrocyte distribution width (RBC) [Entitic vol] 41.9 fL 35.1-43.9 [facility] Erythrocyte distribution width (RBC) [Ratio] 41.9 fl 35.1-43.9 [facility] Estimated glomerular filtrat ion rate (GFR) AmericanOrdered By: Adam Ferraro on 01-02-2025 Estimated GFR (MDRD) Amer 41 mL/min Low >60 [facility] Comment on above: GFR Calc Glomerular filtration rate ( GFR) estimationOrdered By: Adam Ferraro on 01-02-2025 Estimated GFR (MDRD) Non-Af Amer 34 mL/min Low >60 [facility] Comment on above: Non- GFR Calc GFR/1.73 sq M.predicted among non-blacks MDRD (S/P/Bld) [Vol rate/Area] 34 mL/min/{1.73_m2} Low >60 [facility] Comment on above: Non- GFR Calc Glucose measurementOrdered B y: Adam Ferraro on 01-02-2025 Glucose [Mass/Vol] 115 mg/dL High 74-106 [facility] Comment on above: Fasting Glucose resu lt from 100 to 125 mg/dL suggests IMPAIRED HOMEOSTASIS per A.D.A. criteria. Hematocrit Auto (Bld) [Volum e fraction]Ordered By: Adam Ferraro on 01-02-2025 Hematocrit (Bld) [Volume fraction] 40.5 % 40-54 [facility] Hemoglobin measurementOrdere d By: Adam Ferraro on 01-02-2025 Hemoglobin (Bld) [Mass/Vol] 13.4 g/dL 13.0-16.5 [facility] Immature granulocytes/100 WB C Auto (Bld)Ordered By: Adam Ferraro on 01-02-2025 Immature granulocytes/100 WBC (Bld) 0.500 % 0.0-0.9 [facility] Comment on above: IG% - Immature Granu locytes (promyelocytes, myelocytes and metamyelocytes) > 1% indicates that a LEFT SHIFT is Present. Laboratory - Chemistry and C hemistry - challengeOrdered By: Adam Ferraro on 01-02-2025 AST [Catalytic activity/Vol] 12 U/L Low 15-37 [facility] Lithiumon 01-02-2025 LI 0.60 mmol/L Normal 0.60-1.20 [facility] Comment on above: Order Comment: 111.2 Performed By: #### L 501.3310, L500.4050, L501.9060, L100.0100 #### [facility] [address] [place], [address] [place] levelOrdered By: Benoit Ferraro on 01-02-2025 [place] Level 0.60 mmol/L 0.60-1.20 [facility] Lymphocytes Auto (Unsp spec) [#/Vol]Ordered By: Adam Ferraro on 01-02-2025 Lymphocytes (Bld) [#/Vol] 2.41 10*3/uL 0.83-4.51 [facility] Lymphocytes/100 WBC Auto (Un sp spec)Ordered By: Adam Ferraro on 01-02-2025 Lymphocytes/100 WBC (Bld) 25.1 % 19-41 [facility] MCV (mean corpuscular volume ) determinationOrdered By: Adam Ferraro on 01-02-2025 MCV (RBC) [Entitic vol] 90.8 fL 80-94 [facility] Mean corpuscular hemoglobin (MCH) determinationOrdered By: Adam Ferraro on 01-02-2025 MCH (RBC) [Entitic mass] 30.0 pg 27.0-32.0 [facility] Mean corpuscular hemoglobin concentration (MCHC) determinationOrdered By: Adam Ferraro on 01-02-2025 MCHC (RBC) [Mass/Vol] 33.1 g/dL 32-36 [facility] Mean platelet volume determi nationOrdered By: Adam Ferraro on 01-02-2025 Platelet mean volume (Bld) [Entitic vol] 9.5 fL 6.2-12.0 [facility] Monocyte percentageOrdered B y: Adam Ferraro on 01-02-2025 Monocytes/100 WBC (Bld) 9.4 % 0-10 [facility] Neutrophil percentageOrdered By: Adam Ferraro on 01-02-2025 Neutrophils/100 WBC (Bld) 58.6 % 47-70 [facility] Nucleated red blood cell per centageOrdered By: Adam Ferraro on 01-02-2025 Nucleated RBC/100 WBC (Bld) [Ratio] 0 % 0-5 [facility] Phosphoruson 01-02-2025 Phosphate [Mass/Vol] 4.7 mg/dL Normal 2.5-4.9 [facility] Comment on above: Order Comment: 111.2 Performed By: #### L 501.2300, L500.4050, L501.9060, L100.0100 #### [facility] [place], [address] Phosphorus measurementOrdere d By: Adam Ferraro on 01-02-2025 Phosphorus Level 4.7 mg/dL 2.5-4.9 [facility] Platelet countOrdered By: Sabino Ferraro on 01-02-2025 Platelets (Bld) [#/Vol] 247 10*3/uL 150-450 [facility] Potassium measurementOrdered By: Adam Ferraro on 01-02-2025 Potassium [Moles/Vol] 4.1 mmol/L 3.5-5.1 [facility] RBC Auto (Bld) [#/Vol]Ordere d By: Adam Ferraro on 01-02-2025 RBC (Bld) [#/Vol] 4.46 10*6/uL Low 4.6-6.2 [facility] Serum anion gap measurementO rdered By: Adam Ferraro on 01-02-2025 Anion gap [Moles/Vol] 7 mmol/L 5-15 [facility] Serum globulin measurementOr dered By: Adam Ferraro on 01-02-2025 Globulin (S) [Mass/Vol] 3.1 g/dL 2.2-4.2 [facility] Serum or plasma alanine sesay otransferase (ALT) measurementOrdered By: Adam Ferrrao on 01-02-2025 ALT [Catalytic activity/Vol] 17 U/L 16-61 [facility] Serum or plasma albumin you urement (mass/volume)Ordered By: Adam Ferraro on 01-02-2025 Albumin [Mass/Vol] 3.1 g/dL Low 3.2-5.0 [facility] Serum or plasma alkaline hal sphatase measurementOrdered By: Adam Ferraro on 01-02-2025 ALP [Catalytic activity/Vol] 81 U/L 45-117 [facility] Serum or plasma calcium you urement (mass/volume)Ordered By: Adam Ferraro on 01-02-2025 Calcium [Mass/Vol] 9.4 mg/dL 8.5-10.1 [facility] Serum or plasma creatinine m easurement (mass/volume)Ordered By: Adam Ferraro on 01-02-2025 Creatinine [Mass/Vol] 2.14 mg/dL High 0.70-1.30 [facility] Comment on above: The validity of the calculated GFR & GFRAA in patients over 70 years has not been determined. Clinical correlation is essential. Serum or plasma urea nitroge n measurement (mass/volume)Ordered By: Adam Ferraro on 01-02-2025 Urea nitrogen [Mass/Vol] 27 mg/dL High 7-18 [facility] Sodium levelOrdered By: Spike Ferraro on 01-02-2025 Sodium [Moles/Vol] 141 mmol/L 136-145 [facility] Total proteinOrdered By: Benoit Ferraro on 01-02-2025 Protein [Mass/Vol] 6.2 g/dL Low 6.4-8.2 [facility] White blood cell (WBC) count Ordered By: Adam Ferraro on 01-02-2025 WBC (Bld) [#/Vol] 9.6 10*3/uL 4.4-11.0 [facility] Albumin to globulin ratioOrd ered By: Adam Ferraro on 12-28-2024 Albumin/Globulin [Mass ratio] 0.9 {ratio} 0.9-2.4 [facility] Bilirubin, totalOrdered By: Adam Ferraro on 12-28-2024 Bilirubin [Mass/Vol] 0.30 mg/dL 0.20-1.00 [facility] Comment on above: For patients on eltr ombopag therapy, use of Dimension [place]el TBIL is not recommended. Blood urea nitrogen (BUN)/cr eatinine ratioOrdered By: Adam Ferraro on 12-28-2024 Urea nitrogen/Creatinine [Mass ratio] 10.0 mg/mg 10-20 [facility] CBC-Complete Blood Cnt No Di ffon 12-28-2024 Erythrocyte distribution width (RBC) [Ratio] 13.1 % Normal 11.6-14.6 [facility] Comment on above: Order Comment: 111.2 Performed By: #### L 501.2300, L500.4050, L501.9060, L100.0100 #### [facility] [address] [place], [address] Hematocrit (Bld) [Volume fraction] 40.4 % Normal 40-54 [facility] Comment on above: Order Comment: 111.2 Performed By: #### L 501.2300, L500.4050, L501.9060, L100.0100 #### [facility] [address] [place], [address] Hemoglobin (Bld) [Mass/Vol] 13.2 g/dL Normal 13.0-16.5 [facility] Comment on above: Order Comment: 111.2 Performed By: #### L 501.2300, L500.4050, L501.9060, L100.0100 #### [facility] [address] [place], [address] MCH (RBC) [Entitic mass] 29.7 pg Normal 27.0-32.0 [facility] Comment on above: Order Comment: 111.2 Performed By: #### L 501.2300, L500.4050, L501.9060, L100.0100 #### [facility] [address] [place], [address] MCHC (RBC) [Mass/Vol] 32.7 g/dL Normal 32-36 [facility] Comment on above: Order Comment: 111.2 Performed By: #### L 501.2300, L500.4050, L501.9060, L100.0100 #### [facility] [address] [place], [address] MCV (RBC) [Entitic vol] 91.0 fL Normal 80-94 [facility] Comment on above: Order Comment: 111.2 Performed By: #### L 501.2300, L500.4050, L501.9060, L100.0100 #### [facility] [address] [place], [address] Platelet mean volume (Bld) [Entitic vol] 9.3 fL Normal 6.2-12.0 [facility] Comment on above: Order Comment: 111.2 Performed By: #### L 501.2300, L500.4050, L501.9060, L100.0100 #### [facility] [address] [place], [address] Platelets (Bld) [#/Vol] 248 10*3/uL Normal 150-450 [facility] Comment on above: Order Comment: 111.2 Performed By: #### L 501.2300, L500.4050, L501.9060, L100.0100 #### [facility] [address] [place], [address] RBC (Bld) [#/Vol] 4.44 10*6/uL Low 4.6-6.2 [facility] Comment on above: Order Comment: 111.2 Performed By: #### L 501.2300, L500.4050, L501.9060, L100.0100 #### [facility] [address] [place], [address] RDW SD 42.4 fl Normal 35.1-43.9 [facility] Comment on above: Order Comment: 111.2 Performed By: #### L 501.2300, L500.4050, L501.9060, L100.0100 #### [facility] [address] [place], [address] WBC (Bld) [#/Vol] 10.5 10*3/uL Normal 4.4-11.0 [facility] Comment on above: Order Comment: 111.2 Performed By: #### L 501.2300, L500.4050, L501.9060, L100.0100 #### [facility] [address] [place], [address] Carbon dioxide measurementOr dered By: Adam Ferraro on 12-28-2024 CO2 [Moles/Vol] 25.0 mmol/L 21.0-32.0 [facility] Chloride measurementOrdered By: Adam Ferraro on 12-28-2024 Chloride [Moles/Vol] 110 mmol/L High 98-107 [facility] Comprehensive Metabolic Prof ilon 12-28-2024 Albumin [Mass/Vol] 3.0 g/dL Low 3.2-5.0 [facility] Comment on above: Order Comment: 111.2 Performed By: #### L 501.2300, L500.4050, L501.9060, L100.0100 #### [facility] [address] [place], [address] Albumin/Globulin [Mass ratio] 0.9 {ratio} Normal 0.9-2.4 [facility] Comment on above: Order Comment: 111.2 Performed By: #### L 501.2300, L500.4050, L501.9060, L100.0100 #### [facility] [address] [place], [address] ALK P 81 U/L Normal 45-117 [facility] Comment on above: Order Comment: 111.2 Performed By: #### L 501.2300, L500.4050, L501.9060, L100.0100 #### [facility] [address] [place], [address] ALT [Catalytic activity/Vol] 20 U/L Normal 16-61 [facility] Comment on above: Order Comment: 111.2 Performed By: #### L 501.2300, L500.4050, L501.9060, L100.0100 #### [facility] [address] [place], [address] AST [Catalytic activity/Vol] 11 U/L Low 15-37 [facility] Comment on above: Order Comment: 111.2 Performed By: #### L 501.2300, L500.4050, L501.9060, L100.0100 #### [facility] [address] [place], [address] Bilirubin [Mass/Vol] 0.30 mg/dL Normal 0.20-1.00 [facility] Comment on above: Order Comment: 111.2 Result Comment: For patients on eltrombopag therapy, use of Dimension [place] TBIL is not recommended. Performed By: #### L 501.2300, L500.4050, L501.9060, L100.0100 #### [facility] [address] [place], [address] BUN/CRE 10.0 RATIO Normal 10-20 [facility] Comment on above: Order Comment: 111.2 Performed By: #### L 501.2300, L500.4050, L501.9060, L100.0100 #### [facility] [address] [place], [address] CA,Total 9.3 mg/dL Normal 8.5-10.1 [facility] Comment on above: Order Comment: 111.2 Performed By: #### L 501.2300, L500.4050, L501.9060, L100.0100 #### [facility] [address] [place], [address] Chloride [Moles/Vol] 110 mmol/L High 98-107 [facility] Comment on above: Order Comment: 111.2 Performed By: #### L 501.2300, L500.4050, L501.9060, L100.0100 #### [facility] [address] [place], [address] CO2 [Moles/Vol] 25.0 mmol/L Normal 21.0-32.0 [facility] Comment on above: Order Comment: 111.2 Performed By: #### L 501.2300, L500.4050, L501.9060, L100.0100 #### [facility] [address] [place], [address] Creatinine [Mass/Vol] 2.09 mg/dL High 0.70-1.30 [facility] Comment on above: Order Comment: 111.2 Result Comment: The validity of the calculated GFR GFRAA in patients over 70 years has not been determined. Clinical correlation is essential. Performed By: #### L 501.2300, L500.4050, L501.9060, L100.0100 #### [facility] [address] [place], [address] EST GFR - AA 42 mL/min Low >60 [facility] Comment on above: Order Comment: 111.2 Result Comment: Afri can Afghan GFR Calc Performed By: #### L 501.2300, L500.4050, L501.9060, L100.0100 #### [facility] [address] [place], [address] GAP 6 Normal 5-15 [facility] Comment on above: Order Comment: 111.2 Performed By: #### L 501.2300, L500.4050, L501.9060, L100.0100 #### [facility] [address] [place], [address] GFR/1.73 sq M.predicted among non-blacks MDRD (S/P/Bld) [Vol rate/Area] 34 mL/min/{1.73_m2} Low >60 [facility] Comment on above: Order Comment: 111.2 Result Comment: Non- GFR Calc Performed By: #### L 501.2300, L500.4050, L501.9060, L100.0100 #### [facility] [address] [place], [address] Globulin (S) [Mass/Vol] 3.4 g/dL Normal 2.2-4.2 [facility] Comment on above: Order Comment: 111.2 Performed By: #### L 501.2300, L500.4050, L501.9060, L100.0100 #### [facility] [address] [place], [address] Glucose [Mass/Vol] 119 mg/dL High 74-106 [facility] Comment on above: Order Comment: 111.2 Result Comment: Fast ing Glucose result from 100 to 125 mg/dL suggests IMPAIRED HOMEOSTASIS per A.D.A. criteria. Performed By: #### L 501.2300, L500.4050, L501.9060, L100.0100 #### [facility] [address] [place], [address] Potassium [Moles/Vol] 4.3 mmol/L Normal 3.5-5.1 [facility] Comment on above: Order Comment: 111.2 Performed By: #### L 501.2300, L500.4050, L501.9060, L100.0100 #### [facility] [address] [place], [address] Sodium [Moles/Vol] 141 mmol/L Normal 136-145 [facility] Comment on above: Order Comment: 111.2 Performed By: #### L 501.2300, L500.4050, L501.9060, L100.0100 #### [facility] [address] [place], [address] T PROT 6.4 g/dL Normal 6.4-8.2 [facility] Comment on above: Order Comment: 111.2 Performed By: #### L 501.2300, L500.4050, L501.9060, L100.0100 #### [facility] [address] [place], [address] Urea nitrogen [Mass/Vol] 21 mg/dL High 7-18 [facility] Comment on above: Order Comment: 111.2 Performed By: #### L 501.2300, L500.4050, L501.9060, L100.0100 #### [facility] [address] [place], [address] Erythrocyte distribution wid th ratioOrdered By: Adam Ferraro on 12-28-2024 Erythrocyte distribution width (RBC) [Ratio] 13.1 % 11.6-14.6 [facility] Erythrocyte distribution wid th standard deviationOrdered By: Adam Ferraro on 12-28-2024 Erythrocyte distribution width (RBC) [Entitic vol] 42.4 fL 35.1-43.9 [facility] Erythrocyte distribution width (RBC) [Ratio] 42.4 fl 35.1-43.9 [facility] Estimated glomerular filtrat ion rate (GFR) AmericanOrdered By: Adam Ferraro on 12-28-2024 Estimated GFR (MDRD) Amer 42 mL/min Low >60 [facility] Comment on above: GFR Calc Glomerular filtration rate ( GFR) estimationOrdered By: Adam Ferraro on 12-28-2024 Estimated GFR (MDRD) Non-Af Amer 34 mL/min Low >60 [facility] Comment on above: Non- GFR Calc GFR/1.73 sq M.predicted among non-blacks MDRD (S/P/Bld) [Vol rate/Area] 34 mL/min/{1.73_m2} Low >60 [facility] Comment on above: Non- GFR Calc Glucose measurementOrdered B y: Adam Ferraro on 12-28-2024 Glucose [Mass/Vol] 119 mg/dL High 74-106 [facility] Comment on above: Fasting Glucose resu lt from 100 to 125 mg/dL suggests IMPAIRED HOMEOSTASIS per A.D.A. criteria. Hematocrit Auto (Bld) [Volum e fraction]Ordered By: Adam Ferraro on 12-28-2024 Hematocrit (Bld) [Volume fraction] 40.4 % 40-54 [facility] Hemoglobin measurementOrdere d By: Adam Ferraro on 12-28-2024 Hemoglobin (Bld) [Mass/Vol] 13.2 g/dL 13.0-16.5 [facility] Laboratory - Chemistry and C hemistry - challengeOrdered By: Adam Ferraro on 12-28-2024 AST [Catalytic activity/Vol] 11 U/L Low 15-37 [facility] MCV (mean corpuscular volume ) determinationOrdered By: Adam Ferraro on 12-28-2024 MCV (RBC) [Entitic vol] 91.0 fL 80-94 [facility] Mean corpuscular hemoglobin (MCH) determinationOrdered By: Adam Ferraro on 12-28-2024 MCH (RBC) [Entitic mass] 29.7 pg 27.0-32.0 [facility] Mean corpuscular hemoglobin concentration (MCHC) determinationOrdered By: Adam Ferraro on 12-28-2024 MCHC (RBC) [Mass/Vol] 32.7 g/dL 32-36 [facility] Mean platelet volume determi nationOrdered By: Adam Ferraro on 12-28-2024 Platelet mean volume (Bld) [Entitic vol] 9.3 fL 6.2-12.0 [facility] Platelet countOrdered By: Sabino Ferraro on 12-28-2024 Platelets (Bld) [#/Vol] 248 10*3/uL 150-450 [facility] Potassium measurementOrdered By: Adam Ferraro on 12-28-2024 Potassium [Moles/Vol] 4.3 mmol/L 3.5-5.1 [facility] RBC Auto (Bld) [#/Vol]Ordere d By: Adam Ferraro on 12-28-2024 RBC (Bld) [#/Vol] 4.44 10*6/uL Low 4.6-6.2 [facility] Serum anion gap measurementO rdered By: Adam Ferraro on 12-28-2024 Anion gap [Moles/Vol] 6 mmol/L 5-15 [facility] Serum globulin measurementOr dered By: Adam Ferraro on 12-28-2024 Globulin (S) [Mass/Vol] 3.4 g/dL 2.2-4.2 [facility] Serum or plasma alanine sesay otransferase (ALT) measurementOrdered By: Adam Ferraro on 12-28-2024 ALT [Catalytic activity/Vol] 20 U/L 16-61 [facility] Serum or plasma albumin you urement (mass/volume)Ordered By: Adam Ferraro on 12-28-2024 Albumin [Mass/Vol] 3.0 g/dL Low 3.2-5.0 [facility] Serum or plasma alkaline hal sphatase measurementOrdered By: Adam Ferraro 12-28-2024 ALP [Catalytic activity/Vol] 81 U/L 45-117 [facility] Serum or plasma calcium you urement (mass/volume)Ordered By: Adam Ferraro on 12-28-2024 Calcium [Mass/Vol] 9.3 mg/dL 8.5-10.1 [facility] Serum or plasma creatinine m easurement (mass/volume)Ordered By: Adam Ferraro on 12-28-2024 Creatinine [Mass/Vol] 2.09 mg/dL High 0.70-1.30 [facility] Comment on above: The validity of the calculated GFR & GFRAA in patients over 70 years has not been determined. Clinical correlation is essential. Serum or plasma urea nitroge n measurement (mass/volume)Ordered By: Adam Ferraro on 12-28-2024 Urea nitrogen [Mass/Vol] 21 mg/dL High 7-18 [facility] Serum or plasma uric acid me asurement (mass/volume)Ordered By: Adam Ferraro on 12-28-2024 Urate [Mass/Vol] 5.8 mg/dL 3.5-7.2 [facility] Comment on above: The drugs N-Acetylcy steine and Metamizole may falsely depress this assay. Sodium levelOrdered By: Spike Ferraro on 12-28-2024 Sodium [Moles/Vol] 141 mmol/L 136-145 [facility] Total proteinOrdered By: Benoit Ferraro on 12-28-2024 Protein [Mass/Vol] 6.4 g/dL 6.4-8.2 [facility] Uric Acidon 12-28-2024 URIC 5.8 mg/dL Normal 3.5-7.2 [facility] Comment on above: Order Comment: 111.2 Result Comment: The drugs N-Acetylcysteine and Metamizole may falsely depress this assay. Performed By: #### L 501.2300, L500.4050, L501.9060, L100.0100 #### [facility] [address] [place], [address] White blood cell (WBC) count Ordered By: Adam Ferraro on 12-28-2024 WBC (Bld) [#/Vol] 10.5 10*3/uL 4.4-11.0 [facility] Serum or plasma uric acid me asurement (mass/volume)Ordered By: Adam Ferraro on 11-27-2024 Urate [Mass/Vol] 5.8 mg/dL 3.5-7.2 [facility] Comment on above: The drugs N-Acetylcy steine and Metamizole may falsely depress this assay. Uric Acidon 11-27-2024 URIC 5.8 mg/dL Normal 3.5-7.2 [facility] Comment on above: Order Comment: 111.2 Result Comment: The drugs N-Acetylcysteine and Metamizole may falsely depress this assay. Performed By: #### L 100.0500, L500.4050, L501.1400 #### [facility] [address] [place], [address] Absolute neutrophil countOrd ered By: Adam Ferraro on 11-15-2024 Neutrophils (Bld) [#/Vol] 6.8 10*3/uL 2.0-7.7 [facility] Basic Metabolic Profile (BMP )on 11-15-2024 BUN/CRE 10.0 RATIO Normal 10-20 [facility] Comment on above: Order Comment: 111.2 20250501 Performed By: #### L 501.9060 #### [facility] [address] [place], [address] CA,Total 9.6 mg/dL Normal 8.5-10.1 [facility] Comment on above: Order Comment: 111.2 20250501 Performed By: #### L 501.9060 #### [facility] [address] [place], [address] Chloride [Moles/Vol] 108 mmol/L High 98-107 [facility] Comment on above: Order Comment: 111.2 20250501 Performed By: #### L 501.9060 #### [facility] [address] [place], [address] CO2 [Moles/Vol] 23.0 mmol/L Normal 21.0-32.0 [facility] Comment on above: Order Comment: 111.2 20250501 Performed By: #### L 501.9060 #### [facility] [address] [place], [address] Creatinine [Mass/Vol] 2.30 mg/dL High 0.70-1.30 [facility] Comment on above: Order Comment: 111.2 20250501 Result Comment: The validity of the calculated GFR GFRAA in patients over 70 years has not been determined. Clinical correlation is essential. Performed By: #### L 501.9060 #### [facility] [address] [place], [address] EST GFR - AA 37 mL/min Low >60 [facility] Comment on above: Order Comment: 111.2 20250501 Result Comment: Afri can Afghan GFR Calc Performed By: #### L [id number] #### [facility] [address] [place], [address] GAP 8 Normal 5-15 [facility] Comment on above: Order Comment: 111.2 20250501 Performed By: #### L [id number] #### [facility] [address] [place], [address] GFR/1.73 sq M.predicted among non-blacks MDRD (S/P/Bld) [Vol rate/Area] 31 mL/min/{1.73_m2} Low >60 [facility] Comment on above: Order Comment: 111.2 20250501 Result Comment: Non- GFR Calc Performed By: #### L 501.9060 #### [facility] [address] [place], [address] Glucose [Mass/Vol] 114 mg/dL High 74-106 [facility] Comment on above: Order Comment: 111.2 20250501 Result Comment: Fast ing Glucose result from 100 to 125 mg/dL suggests IMPAIRED HOMEOSTASIS per A.D.A. criteria. Performed By: #### L [id number] #### [facility] [address] [place], [address] Potassium [Moles/Vol] 4.2 mmol/L Normal 3.5-5.1 [facility] Comment on above: Order Comment: 111.2 20250501 Performed By: #### L 501.9060 #### [facility] [address] [place], [address] Sodium [Moles/Vol] 140 mmol/L Normal 136-145 [facility] Comment on above: Order Comment: 111.2 20250501 Performed By: #### L 501.9060 #### [facility] [address] [place], [address] Urea nitrogen [Mass/Vol] 23 mg/dL High -18 [facility] Comment on above: Order Comment: 111.2 20250501 Performed By: #### L 501.9060 #### [facility] [address] [place], [address] Basophil percentageOrdered B y: Adam Ferraro on 11-15-2024 Basophils/100 WBC (Bld) 1.2 % High 0-1 [facility] Blood urea nitrogen (BUN)/cr eatinine ratioOrdered By: Adam Ferraro on 11-15-2024 Urea nitrogen/Creatinine [Mass ratio] 10.0 mg/mg 10-20 [facility] CBC W/Diff, Automatedon Absolute Lymph 2.67 X10 3/uL Normal 0.83-4.51 [facility] Comment on above: Order Comment: URIC ACID ADDED TO 05/24/25 LABWORK Performed By: #### L 100.0500, L500.4050, L501.1400 #### [facility] [address] [place], [address] Absolute Neut 6.8 X10 3/uL Normal 2.0-7.7 [facility] Comment on above: Order Comment: URIC ACID ADDED TO 05/24/25 LABWORK Performed By: #### L 100.0500, L500.4050, L501.1400 #### [facility] [address] [place], [address] Basophils/100 WBC (Bld) 1.2 % High 0-1 [facility] Comment on above: Order Comment: URIC ACID ADDED TO 05/24/25 LABWORK Performed By: #### L 100.0500, L500.4050, L501.1400 #### [facility] [address] [place], [address] Eosinophils/100 WBC (Bld) 4.6 % Normal 0-5 [facility] Comment on above: Order Comment: URIC ACID ADDED TO 05/24/25 LABWORK Performed By: #### L 100.0500, L500.4050, L501.1400 #### [facility] [address] [place], [address] Erythrocyte distribution width (RBC) [Ratio] 12.9 % Normal 11.6-14.6 [facility] Comment on above: Order Comment: URIC ACID ADDED TO 05/24/25 LABWORK Performed By: #### L 100.0500, L500.4050, L501.1400 #### [facility] [address] [place], [address] Hematocrit (Bld) [Volume fraction] 41.5 % Normal 40-54 [facility] Comment on above: Order Comment: URIC ACID ADDED TO 05/24/25 LABWORK Performed By: #### L 100.0500, L500.4050, L501.1400 #### [facility] [address] [place], [address] Hemoglobin (Bld) [Mass/Vol] 13.6 g/dL Normal 13.0-16.5 [facility] Comment on above: Order Comment: URIC ACID ADDED TO 05/24/25 LABWORK Performed By: #### L 100.0500, L500.4050, L501.1400 #### [facility] [address] [place], [address] IG% 0.500 Normal 0.0-0.9 [facility] Comment on above: Order Comment: URIC ACID ADDED TO 05/24/25 LABWORK Result Comment: IG% - Immature Granulocytes (promyelocytes, myelocytes and metamyelocytes) > 1% indicates that a LEFT SHIFT is Present. Performed By: #### L 100.0500, L500.4050, L501.1400 #### [facility] [address] [place], [address] Lymphocytes/100 WBC (Bld) 23.8 % Normal 19-41 [facility] Comment on above: Order Comment: URIC ACID ADDED TO 05/24/25 LABWORK Performed By: #### L 100.0500, L500.4050, L501.1400 #### [facility] [address] [place], [address] MCH (RBC) [Entitic mass] 29.9 pg Normal 27.0-32.0 [facility] Comment on above: Order Comment: URIC ACID ADDED TO 05/24/25 LABWORK Performed By: #### L 100.0500, L500.4050, L501.1400 #### [facility] [address] [place], [address] MCHC (RBC) [Mass/Vol] 32.8 g/dL Normal 32-36 [facility] Comment on above: Order Comment: URIC ACID ADDED TO 05/24/25 LABWORK Performed By: #### L 100.0500, L500.4050, L501.1400 #### [facility] [address] [place], [address] MCV (RBC) [Entitic vol] 91.2 fL Normal 80-94 [facility] Comment on above: Order Comment: URIC ACID ADDED TO 05/24/25 LABWORK Performed By: #### L 100.0500, L500.4050, L501.1400 #### [facility] [address] [place], [address] Monocytes/100 WBC (Bld) 9.8 % Normal 0-10 [facility] Comment on above: Order Comment: URIC ACID ADDED TO 05/24/25 LABWORK Performed By: #### L 100.0500, L500.4050, L501.1400 #### [facility] [address] [place], [address] Neutrophils/100 WBC (Bld) 60.1 % Normal 47-70 [facility] Comment on above: Order Comment: URIC ACID ADDED TO 05/24/25 LABWORK Performed By: #### L 100.0500, L500.4050, L501.1400 #### [facility] [address] [place], [address] Nucleated RBC (Bld) [#/Vol] 0 10*3/uL Normal 0-5 [facility] Comment on above: Order Comment: URIC ACID ADDED TO 05/24/25 LABWORK Performed By: #### L 100.0500, L500.4050, L501.1400 #### [facility] [address] [place], [address] Platelet mean volume (Bld) [Entitic vol] 9.5 fL Normal 6.2-12.0 [facility] Comment on above: Order Comment: URIC ACID ADDED TO 05/24/25 LABWORK Performed By: #### L 100.0500, L500.4050, L501.1400 #### [facility] [address] [place], [address] Platelets (Bld) [#/Vol] 257 10*3/uL Normal 150-450 [facility] Comment on above: Order Comment: URIC ACID ADDED TO 05/24/25 LABWORK Performed By: #### L 100.0500, L500.4050, L501.1400 #### [facility] [address] [place], [address] RBC (Bld) [#/Vol] 4.55 10*6/uL Low 4.6-6.2 [facility] Comment on above: Order Comment: URIC ACID ADDED TO 05/24/25 LABWORK Performed By: #### L 100.0500, L500.4050, L501.1400 #### [facility] [address] [place], [address] RDW SD 42.9 fl Normal 35.1-43.9 [facility] Comment on above: Order Comment: URIC ACID ADDED TO 05/24/25 LABWORK Performed By: #### L 100.0500, L500.4050, L501.1400 #### [facility] [address] [place], [address] WBC (Bld) [#/Vol] 11.2 10*3/uL High 4.4-11.0 [facility] Comment on above: Order Comment: URIC ACID ADDED TO 05/24/25 LABWORK Performed By: #### L 100.0500, L500.4050, L501.1400 #### [facility] [address] [place], [address] Carbon dioxide measurementOr dered By: Adam Ferraro on 11-15-2024 CO2 [Moles/Vol] 23.0 mmol/L 21.0-32.0 [facility] Chloride measurementOrdered By: Adam Ferraro on 11-15-2024 Chloride [Moles/Vol] 108 mmol/L High 98-107 [facility] Eosinophil percentageOrdered By: Adam Ferraro on 11-15-2024 Eosinophils/100 WBC (Bld) 4.6 % 0-5 [facility] Erythrocyte distribution wid th ratioOrdered By: Adam Ferraro on 11-15-2024 Erythrocyte distribution width (RBC) [Ratio] 12.9 % 11.6-14.6 [facility] Erythrocyte distribution wid th standard deviationOrdered By: Adam Ferraro on 11-15-2024 Erythrocyte distribution width (RBC) [Entitic vol] 42.9 fL 35.1-43.9 [facility] Estimated glomerular filtrat ion rate (GFR) AmericanOrdered By: Adam Ferraro on 11-15-2024 Estimated GFR (MDRD) Amer 37 mL/min Low >60 [facility] Comment on above: GFR Calc Glomerular filtration rate ( GFR) estimationOrdered By: Adam Ferraro on 11-15-2024 Estimated GFR (MDRD) Non-Af Amer 31 mL/min Low >60 [facility] Comment on above: Non- GFR Calc Glucose measurementOrdered B y: Adam Ferraro on 11-15-2024 Glucose [Mass/Vol] 114 mg/dL High 74-106 [facility] Comment on above: Fasting Glucose resu lt from 100 to 125 mg/dL suggests IMPAIRED HOMEOSTASIS per A.D.A. criteria. Hematocrit Auto (Bld) [Volum e fraction]Ordered By: Adam Ferraro on 11-15-2024 Hematocrit (Bld) [Volume fraction] 41.5 % 40-54 [facility] Hemoglobin measurementOrdere d By: Adam Ferraro on 11-15-2024 Hemoglobin (Bld) [Mass/Vol] 13.6 g/dL 13.0-16.5 [facility] Immature granulocytes/100 WB C Auto (Bld)Ordered By: Adam Ferraro on 11-15-2024 Immature granulocytes/100 WBC (Bld) 0.500 % 0.0-0.9 [facility] Comment on above: IG% - Immature Granu locytes (promyelocytes, myelocytes and metamyelocytes) > 1% indicates that a LEFT SHIFT is Present. Lithiumon 11-15-2024 LI 0.60 mmol/L Normal 0.60-1.20 [facility] Comment on above: Order Comment: 111.2 [id number] Performed By: #### L 501.9060 #### [facility] [address] [place] [address], [address] [place] levelOrdered By: Benoit Ferraro on 11-15-2024 [place] Level 0.60 mmol/L 0.60-1.20 [facility] Lymphocytes Auto (Unsp spec) [#/Vol]Ordered By: Adam Ferraro on 11-15-2024 Lymphocytes (Bld) [#/Vol] 2.67 10*3/uL 0.83-4.51 [facility] Lymphocytes/100 WBC Auto (Un sp spec)Ordered By: Adam Ferraro on 11-15-2024 Lymphocytes/100 WBC (Bld) 23.8 % 19-41 [facility] MCV (mean corpuscular volume ) determinationOrdered By: Adam Ferraro on 11-15-2024 MCV (RBC) [Entitic vol] 91.2 fL 80-94 [facility] Mean corpuscular hemoglobin (MCH) determinationOrdered By: Adam Ferraro on 11-15-2024 MCH (RBC) [Entitic mass] 29.9 pg 27.0-32.0 [facility] Mean corpuscular hemoglobin concentration (MCHC) determinationOrdered By: Adam Ferraro on 11-15-2024 MCHC (RBC) [Mass/Vol] 32.8 g/dL 32-36 [facility] Mean platelet volume determi nationOrdered By: Adam Ferraro on 11-15-2024 Platelet mean volume (Bld) [Entitic vol] 9.5 fL 6.2-12.0 [facility] Microalb:Creat Ratio,Random URon 11-15-2024 Creatinine [Mass/Vol] 50.60 mg/dL Normal NO RAN GE EST. [facility] Comment on above: Performed By: #### L 501.9060 #### [facility] [address] [place], [place], [id number] MALB:CRE TNP Normal <30 mg/g CRE [facility] Comment on above: Performed By: #### L 501.9060 #### [facility] [address] [place], [place], [id number] MICROALBUMIN,UR < 5.0 Normal NO RANGE EST. [facility] Comment on above: Performed By: #### L 501.9060 #### [facility] [address] [facility] [place], [place], [id number] Monocyte percentageOrdered B y: Adam Ferraro on 11-15-2024 Monocytes/100 WBC (Bld) 9.8 % 0-10 [facility] Neutrophil percentageOrdered By: Adam Ferraro on 11-15-2024 Neutrophils/100 WBC (Bld) 60.1 % 47-70 [facility] Nucleated red blood cell per centageOrdered By: Adam Ferraro on 11-15-2024 Nucleated RBC/100 WBC (Bld) [Ratio] 0 % 0-5 [facility] Platelet countOrdered By: Sabino Ferraro on 11-15-2024 Platelets (Bld) [#/Vol] 257 10*3/uL 150-450 [facility] Potassium measurementOrdered By: Adam Ferraro on 11-15-2024 Potassium [Moles/Vol] 4.2 mmol/L 3.5-5.1 [facility] RBC Auto (Bld) [#/Vol]Ordere d By: Adam Ferraro on 11-15-2024 RBC (Bld) [#/Vol] 4.55 10*6/uL Low 4.6-6.2 [facility] Random urine microalbumin me asurementOrdered By: Adam Ferraro on 11-15-2024 Urine Random Microalbumin < 5.0 mg/L NO RANGE EST. [facility] Serum anion gap measurementO rdered By: Adam Ferraro on 11-15-2024 Anion gap [Moles/Vol] 8 mmol/L 5-15 [facility] Serum or plasma calcium you urement (mass/volume)Ordered By: Adam Ferraro on 11-15-2024 Calcium [Mass/Vol] 9.6 mg/dL 8.5-10.1 [facility] Serum or plasma creatinine m easurement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 above: IG% - Immature Granu locytes (promyelocytes, myelocytes and metamyelocytes) > 1% indicates that a LEFT SHIFT is Present. Laboratory - Chemistry and C hemistry - challengeOrdered By: Alfredo Phipps on 02-03-2024 CO2 [Moles/Vol] 24.0 mmol/L 21.0-32.0 [facility] Urea nitrogen/Creatinine [Mass ratio] 10.9 mg/mg 10-20 [facility] Laboratory - Hematology and Cell countsOrdered By: Alfredo Phipps on 02-03-2024 MCH (RBC) [Entitic mass] 29.3 pg 27.0-32.0 [facility] MCHC (RBC) [Mass/Vol] 32.9 g/dL 32-36 [facility] Nucleated RBC/100 WBC (Bld) [Ratio] 0 % 0-5 [facility] Platelet mean volume (Bld) [Entitic vol] 9.5 fL 6.2-12.0 [facility] Platelets (Bld) [#/Vol] 234 10*3/uL 150-450 [facility] No Panel InformationOrdered By: Alfredo Phipps on 02-03-2024 Estimated GFR (MDRD) Amer 48 mL/min >60 [facility] Comment on above: GFR Calc Estimated GFR (MDRD) Non-Af Amer 40 mL/min >60 [facility] Comment on above: Non- GFR Calc [place] Level 0.60 mmol/L 0.60-1.20 [facility] RBC Auto (Bld) [#/Vol]Ordere d By: Alfredo Pihpps on 02-03-2024 RBC (Bld) [#/Vol] 4.54 10*6/uL 4.6-6.2 [facility] Serum or plasma calcium you urement (mass/volume)Ordered By: Alfredo Phipps on 02-03-2024 Calcium [Mass/Vol] 9.2 mg/dL 8.5-10.1 [facility] Serum or plasma creatinine m easurement (mass/volume)Ordered By: Alfredo Phipps on 02-03-2024 Creatinine [Mass/Vol] 1.84 mg/dL 0.70-1.30 [facility] Comment on above: The validity of the calculated GFR & GFRAA in patients over 70 years has not been determined. Clinical correlation is essential. Serum or plasma urea nitroge n measurement (mass/volume)Ordered By: Alfredo Phipps on 02-03-2024 Urea nitrogen [Mass/Vol] 20 mg/dL 7-18 [facility] Thin prep Papanicolaou smear with manual screeningOrdered By: Alfredo Phipps on 02-03-2024 Thin prep Papanicolaou smear with manual screening 3.0 g/dL 3.2-5.0 [facility] Protein (U) [Mass/Vol] 19.8 mg/dL 0.0-11.8 [facility] Urine creatinine measurement (mass/volume)Ordered By: Alfredo Phipps on 02-03-2024 Creatinine (U) [Mass/Vol] 116.00 mg/dL NO RANGE EST. [facility] Urine protein/creatinine mas s ratioOrdered By: Alfredo Phipps on 02-03-2024 Protein/Creatinine (U) [Mass ratio] 171 mg/g CRE 0-200 [facility] Absolute lymphocyte countOrd ered By: Alfredo Phipps on 01-06-2024 Lymphocytes Auto (Unsp spec) [#/Vol] 2.00 10*3/uL 0.83-4.51 [facility] Automated lymphocyte count a s percentage of total leukocytesOrdered By: Alfredo Phipps on 01-06-2024 Lymphocytes/100 WBC Auto (Unsp spec) 20.9 % 19-41 [facility] Basophil percentageOrdered B y: Alfredo Phipps on 01-06-2024 Basophil percentage 4.2 mg/dL 2.5-4.9 [facility] Basophils/100 WBC (Bld) 0.8 % 0-1 [facility] Chloride [Moles/Vol] 109 mmol/L 98-107 [facility] Eosinophils/100 WBC (Bld) 3.9 % 0-5 [facility] Glucose [Mass/Vol] 113 mg/dL 74-106 [facility] Comment on above: Fasting Glucose resu lt from 100 to 125 mg/dL suggests IMPAIRED HOMEOSTASIS per A.D.A. criteria. Hemoglobin (Bld) [Mass/Vol] 13.7 g/dL 13.0-16.5 [facility] Monocytes/100 WBC (Bld) 8.4 % 0-10 [facility] Neutrophils (Bld) [#/Vol] 6.3 10*3/uL 2.0-7.7 [facility] Neutrophils/100 WBC (Bld) 65.7 % 47-70 [facility] Potassium [Moles/Vol] 4.2 mmol/L 3.5-5.1 [facility] Sodium [Moles/Vol] 143 mmol/L 136-145 [facility] WBC (Bld) [#/Vol] 9.6 10*3/uL 4.4-11.0 [facility] Determination of erythrocyte mean corpuscular volume (MCV)Ordered By: Alfredo Phipps on 01-06-2024 MCV (RBC) [Entitic vol] 90.1 fL 80-94 [facility] Erythrocyte distribution wid th ratioOrdered By: Alfredo Phipps on 01-06-2024 Erythrocyte distribution width (RBC) [Ratio] 13.2 % 11.6-14.6 [facility] Erythrocyte distribution wid th standard deviationOrdered By: Alfredo Phipps on 01-06-2024 Erythrocyte distribution width (RBC) [Entitic vol] 43.2 fL 35.1-43.9 [facility] Hematocrit Auto (Bld) [Volum e fraction]Ordered By: Alfredo Phipps on 01-06-2024 Hematocrit (Bld) [Volume fraction] 41.7 % 40-54 [facility] Immature granulocytes/100 WB C Auto (Bld)Ordered By: Alfredo Phipps on 01-06-2024 Immature granulocytes/100 WBC (Bld) 0.300 % 0.0-0.9 [facility] Comment on above: IG% - Immature Granu locytes (promyelocytes, myelocytes and metamyelocytes) > 1% indicates that a LEFT SHIFT is Present. Laboratory - Chemistry and C hemistry - challengeOrdered By: Alfredo Phipps on 01-06-2024 CO2 [Moles/Vol] 24.0 mmol/L 21.0-32.0 [facility] Urea nitrogen/Creatinine [Mass ratio] 8.9 mg/mg 10-20 [facility] Laboratory - Hematology and Cell countsOrdered By: Alfredo Phipps on 01-06-2024 MCH (RBC) [Entitic mass] 29.6 pg 27.0-32.0 [facility] MCHC (RBC) [Mass/Vol] 32.9 g/dL 32-36 [facility] Nucleated RBC/100 WBC (Bld) [Ratio] 0 % 0-5 [facility] Platelet mean volume (Bld) [Entitic vol] 9.6 fL 6.2-12.0 [facility] Platelets (Bld) [#/Vol] 209 10*3/uL 150-450 [facility] No Panel InformationOrdered By: Alfredo Phipps on 01-06-2024 Estimated GFR (MDRD) Amer 44 mL/min >60 [facility] Comment on above: GFR Calc Estimated GFR (MDRD) Non-Af Amer 36 mL/min >60 [facility] Comment on above: Non- GFR Calc [place] Level 0.60 mmol/L 0.60-1.20 [facility] RBC Auto (Bld) [#/Vol]Ordere d By: Alfredo Phipps on 01-06-2024 RBC (Bld) [#/Vol] 4.63 10*6/uL 4.6-6.2 [facility] Serum or plasma calcium you urement (mass/volume)Ordered By: Alfredo Phipps on 01-06-2024 Calcium [Mass/Vol] 9.3 mg/dL 8.5-10.1 [facility] Serum or plasma creatinine m easurement (mass/volume)Ordered By: Alfredo Phipps on 01-06-2024 Creatinine [Mass/Vol] 2.02 mg/dL 0.70-1.30 [facility] Comment on above: The validity of the calculated GFR & GFRAA in patients over 70 years has not been determined. Clinical correlation is essential. Serum or plasma urea nitroge n measurement (mass/volume)Ordered By: Alfredo Phipps on 01-06-2024 Urea nitrogen [Mass/Vol] 18 mg/dL 7-18 [facility] Thin prep Papanicolaou smear with manual screeningOrdered By: Alfredo Phipps on 01-06-2024 Thin prep Papanicolaou smear with manual screening 3.3 g/dL 3.2-5.0 [facility] Protein (U) [Mass/Vol] 19.0 mg/dL 0.0-11.8 [facility] Urine creatinine measurement (mass/volume)Ordered By: Alfredo Phipps on 01-06-2024 Creatinine (U) [Mass/Vol] 122.00 mg/dL NO RANGE EST. [facility] Urine protein/creatinine mas s ratioOrdered By: Alfredo Phipps on 01-06-2024 Protein/Creatinine (U) [Mass ratio] 156 mg/g CRE 0-200 [facility] CBC W Auto Differential pane l (Bld)on 12-20-2023 Basophils (Bld) [#/Vol] 0.11 10*3/uL High <0.11 k/uL [facility] Basophils/100 WBC (Bld) 1.0 % [facility] Differential cell count method Nom (Bld) Auto [facility] Eosinophils (Bld) [#/Vol] 0.31 10*3/uL <0.46 k/uL [facility] Eosinophils/100 WBC (Bld) 2.8 % [facility] Erythrocyte distribution width (RBC) [Ratio] 12.9 % 11.5 - 15.0 % [facility] Hematocrit (Bld) [Volume fraction] 46.0 % 39.0 - 51.0 % [facility] Hemoglobin (Bld) [Mass/Vol] 15.2 g/dL 13.0 - 17.0 g/dL [facility] Immature granulocytes (Bld) [#/Vol] 0.06 10*3/uL <0.10 k/uL [facility] Immature granulocytes/100 WBC (Bld) 0.5 % [facility] Lymphocytes (Bld) [#/Vol] 1.82 10*3/uL 1.00 - 4.00 k/uL [facility] Lymphocytes/100 WBC (Bld) 16.5 % [facility] MCH (RBC) [Entitic mass] 28.9 pg 26. 0 - 34.0 pg [facility] MCHC (RBC) [Mass/Vol] 33.0 g/dL 30.5 - 36.0 g/dL [facility] MCV (RBC) [Entitic vol] 87.5 fL 80.0 - 100.0 fL [facility] Monocytes (Bld) [#/Vol] 0.88 10*3/uL High <0.87 k/uL [facility] Monocytes/100 WBC (Bld) 8.0 % [facility] Neutrophils (Bld) [#/Vol] 7.82 10*3/uL High 1.45 - 7.50 k/uL [facility] Neutrophils/100 WBC (Bld) 71.2 % [facility] Nucleated RBC (Bld) [#/Vol] <0.01 k/uL [facility] Nucleated RBC/100 WBC (Bld) [Ratio] 0.0 /100 WBC [facility] Platelet mean volume (Bld) [Entitic vol] 9.4 fL 9.0 - 12.7 fL [facility] Platelets (Bld) [#/Vol] 247 10*3/uL 150 - 400 k/uL [facility] RBC (Bld) [#/Vol] 5.26 10*6/uL 4.20 - 6.00 m/uL [facility] WBC (Bld) [#/Vol] 11.00 10*3/uL 3.70 - 11.00 k/uL [facility] CYSTATIN Con 12-20-2023 Cystatin C [Mass/Vol] 1.87 mg/L High 0.61 - 0.95 mg/L [facility] Cystatin C eGFR 34 mL/min/1.73m Low >=60 mL/min/1.7 3m [facility] Comprehensive metabolic 2000 panelon 12-20-2023 Albumin [Mass/Vol] 4.2 g/dL 3.9 - 4.9 g/dL [facility] ALP [Catalytic activity/Vol] 105 U/L 38 - 113 U/L [facility] ALT [Catalytic activity/Vol] 31 U/L 10 - 54 U/L [facility] Anion gap [Moles/Vol] 15 mmol/L 9 - 18 mmol/L [facility] AST [Catalytic activity/Vol] 19 U/L 14 - 40 U/L [facility] Bilirubin [Mass/Vol] 0.3 mg/dL 0.2 - 1 .3 mg/dL [facility] Calcium [Mass/Vol] 10.2 mg/dL 8.5 - 10. 2 mg/dL [facility] Chloride [Moles/Vol] 103 mmol/L 97 - 10 5 mmol/L [facility] CO2 [Moles/Vol] 24 mmol/L 22 - 30 mmol/L [facility] Creatinine [Mass/Vol] 2.22 mg/dL High 0.73 - 1.22 mg/dL [facility] Estimated Glomerular Filtration Rate 33 mL/min/1.73m Low >=60 mL/min/1.7 3m [facility] Glucose [Mass/Vol] 114 mg/dL High 74 - 99 mg/dL [facility] Potassium [Moles/Vol] 4.2 mmol/L 3.7 - 5.1 mmol/L [facility] Protein [Mass/Vol] 7.0 g/dL 6.3 - 8.0 g/dL [facility] Sodium [Moles/Vol] 142 mmol/L 136 - 144 mmol/L [facility] Urea nitrogen [Mass/Vol] 19 mg/dL 9 - 24 mg/dL [facility] LIPID PANEL, NONFASTINGon Cholesterol [Mass/Vol] 139 mg/dL <200 mg/dL [facility] HDL Cholesterol, Nonfasting 32 mg/dL Low >39 mg/dL [facility] LDL Cholesterol, Nonfasting 51 mg/dL <100 mg/dL [facility] LDL/HDL Ratio, Nonfasting 1.59 mg/dL <2.54 mg/dL [facility] Non HDL Cholesterol, Nonfasting 107 mg/dL <130 mg/dL [facility] Total Chol/HDL Ratio, Nonfasting 4.34 mg/dL <5.10 mg/dL [facility] Triglycerides, Nonfasting 280 mg/dL High <150 mg/dL [facility] VLDL Cholesterol, Nonfasting 56 mg/dL High <30 mg/dL [facility] PHOSPHORUS INORGANICon 12-20 Phosphate [Mass/Vol] 2.1 mg/dL Low 2.7 - 4 .8 mg/dL [facility] PROTEIN CREATININE RATIOon 0 12-20-2023 Protein/Creatinine (U) [Mass ratio] 0.07 mg/mg <0.15 mg/mg [facility] PTH INTACT BLDon 12-20-2023 Parathyrin.intact [Mass/Vol] 121 pg/mL High 15 - 65 pg/mL [facility] Protein/Creatinine (U) [Mass ratio]on 12-20-2023 Creatinine (U) [Mass/Vol] 103.8 mg/dL 20.0 - 300.0 mg/dL [facility] Protein (U) [Mass/Vol] 7 mg/dL 0 - 2 0 mg/dL [facility] URINALYSIS, REFLEX MICROSCOP ICon 12-20-2023 Bilirubin Ql (U) Negative Negative [facility] Clarity (Unsp spec) Clear Clear [facility] Color (U) Light Yellow Yellow [facility] Glucose Test strip (U) [Mass/Vol] Negative Trace, Negative [facility] Hemoglobin Ql (U) Negative Negative, Trace [facility] Ketones Ql (U) Negative Negative, Trace [facility] Leukocyte esterase Test strip Ql (U) Negative Negative, 25 Mary/uL [facility] Nitrite Ql (U) Negative Negative [facility] pH (U) 6.0 [pH] 5.0 - 8.0 [facility] Protein (U) [Mass/Vol] Negative Trace , Negative [facility] Specific gravity (U) [Rel density] 1.010 1.005 - 1.030 [facility] Urobilinogen Ql (U) Normal Normal [facility] Absolute lymphocyte countOrd ered By: Alfredo Phipps on 12-09-2023 Lymphocytes Auto (Unsp spec) [#/Vol] 2.24 10*3/uL 0.83-4.51 [facility] Automated lymphocyte count a s percentage of total leukocytesOrdered By: Alfredo Phipps on 12-09-2023 Lymphocytes/100 WBC Auto (Unsp spec) 23.2 % 19-41 [facility] Basophil percentageOrdered B y: Alfredo Phipps on 12-09-2023 Basophil percentage 3.8 mg/dL 2.5-4.9 [facility] Basophils/100 WBC (Bld) 1.0 % 0-1 [facility] Chloride [Moles/Vol] 110 mmol/L 98-107 [facility] Eosinophils/100 WBC (Bld) 3.9 % 0-5 [facility] Glucose [Mass/Vol] 129 mg/dL 74-106 [facility] Comment on above: Fasting Glucose resu lt greater than or equal to 126 mg/dL suggests DIABETES MELLITUS per A.D.A. criteria. Hemoglobin (Bld) [Mass/Vol] 13.9 g/dL 13.0-16.5 [facility] Monocytes/100 WBC (Bld) 9.3 % 0-10 [facility] Neutrophils (Bld) [#/Vol] 6.0 10*3/uL 2.0-7.7 [facility] Neutrophils/100 WBC (Bld) 62.2 % 47-70 [facility] Potassium [Moles/Vol] 3.5 mmol/L 3.5-5.1 [facility] Sodium [Moles/Vol] 138 mmol/L 136-145 [facility] WBC (Bld) [#/Vol] 9.7 10*3/uL 4.4-11.0 [facility] Determination of erythrocyte mean corpuscular volume (MCV)Ordered By: Alfredo Phipps on 12-09-2023 MCV (RBC) [Entitic vol] 90.2 fL 80-94 [facility] Erythrocyte distribution wid th ratioOrdered By: Alfredo Phipps on 12-09-2023 Erythrocyte distribution width (RBC) [Ratio] 13.1 % 11.6-14.6 [facility] Erythrocyte distribution wid th standard deviationOrdered By: Alfredo Phipps on 12-09-2023 Erythrocyte distribution width (RBC) [Entitic vol] 43.2 fL 35.1-43.9 [facility] Hematocrit Auto (Bld) [Volum e fraction]Ordered By: Alfredo Phipps on 12-09-2023 Hematocrit (Bld) [Volume fraction] 43.2 % 40-54 [facility] Immature granulocytes/100 WB C Auto (Bld)Ordered By: Alfredo Phipps on 12-09-2023 Immature granulocytes/100 WBC (Bld) 0.400 % 0.0-0.9 [facility] Comment on above: IG% - Immature Granu locytes (promyelocytes, myelocytes and metamyelocytes) > 1% indicates that a LEFT SHIFT is Present. Laboratory - Chemistry and C hemistry - challengeOrdered By: Alfredo Phipps on 12-09-2023 CO2 [Moles/Vol] 21.0 mmol/L 21.0-32.0 [facility] Urea nitrogen/Creatinine [Mass ratio] 7.4 mg/mg 10-20 [facility] Laboratory - Hematology and Cell countsOrdered By: Alfredo Phipps on 12-09-2023 MCH (RBC) [Entitic mass] 29.0 pg 27.0-32.0 [facility] MCHC (RBC) [Mass/Vol] 32.2 g/dL 32-36 [facility] Nucleated RBC/100 WBC (Bld) [Ratio] 0 % 0-5 [facility] Platelets (Bld) [#/Vol] 235 10*3/uL 150-450 [facility] No Panel InformationOrdered By: Alfredo Phipps on 12-09-2023 Estimated GFR (MDRD) Amer 44 mL/min >60 [facility] Comment on above: GFR Calc Estimated GFR (MDRD) Non-Af Amer 36 mL/min >60 [facility] Comment on above: Non- GFR Calc [place] Level 0.40 mmol/L 0.60-1.20 [facility] Platelet mean volume Naresh-Ec ker (Bld) [Entitic vol]Ordered By: Alfredo Phipps on 12-09-2023 Platelet mean volume (Bld) [Entitic vol] 9.5 fL 6.2-12.0 [facility] RBC Auto (Bld) [#/Vol]Ordere d By: Alfredo Phipps on 12-09-2023 RBC (Bld) [#/Vol] 4.79 10*6/uL 4.6-6.2 [facility] Serum or plasma calcium you urement (mass/volume)Ordered By: Alfredo Phipps on 12-09-2023 Calcium [Mass/Vol] 9.3 mg/dL 8.5-10.1 [facility] Serum or plasma creatinine m easurement (mass/volume)Ordered By: Alfredo Phipps on 12-09-2023 Creatinine [Mass/Vol] 2.02 mg/dL 0.70-1.30 [facility] Comment on above: The validity of the calculated GFR & GFRAA in patients over 70 years has not been determined. Clinical correlation is essential. Serum or plasma urea nitroge n measurement (mass/volume)Ordered By: Alfredo Phipps on 12-09-2023 Urea nitrogen [Mass/Vol] 15 mg/dL 7-18 [facility] Thin prep Papanicolaou smear with manual screeningOrdered By: Alfredo Phipps on 12-09-2023 Thin prep Papanicolaou smear with manual screening 3.2 g/dL 3.2-5.0 [facility] Urine creatinine measurement (mass/volume)Ordered By: Adam Ferraro on 11-16-2023 Creatinine (U) [Mass/Vol] 178.00 mg/dL NO RANGE EST. [facility] Urine protein measurement (m ass/volume)Ordered By: Adam Ferraro on 11-16-2023 Protein (U) [Mass/Vol] 28.7 mg/dL 0.0-11.8 [facility] Urine protein/creatinine mas s ratioOrdered By: Adam Ferraro on 11-16-2023 Protein/Creatinine (U) [Mass ratio] 161 mg/g CRE 0-200 [facility] Absolute lymphocyte countOrd ered By: Adam Ferraro on 11-11-2023 Lymphocytes Auto (Unsp spec) [#/Vol] 3.10 10*3/uL 0.83-4.51 [facility] Basophil percentageOrdered B y: Adam Ferraro on 11-11-2023 Basophil percentage 3.6 mg/dL 2.5-4.9 [facility] Basophils/100 WBC (Bld) 0.8 % 0-1 [facility] Chloride [Moles/Vol] 108 mmol/L 98-107 [facility] Eosinophils/100 WBC (Bld) 3.4 % 0-5 [facility] Glucose [Mass/Vol] 120 mg/dL 74-106 [facility] Comment on above: Fasting Glucose resu lt from 100 to 125 mg/dL suggests IMPAIRED HOMEOSTASIS per A.D.A. criteria. Neutrophils (Bld) [#/Vol] 7.1 10*3/uL 2.0-7.7 [facility] Neutrophils/100 WBC (Bld) 61.0 % 47-70 [facility] Potassium [Moles/Vol] 3.6 mmol/L 3.5-5.1 [facility] Sodium [Moles/Vol] 140 mmol/L 136-145 [facility] WBC (Bld) [#/Vol] 11.6 10*3/uL 4.4-11.0 [facility] Blood erythrocytes count (nu mber/volume)Ordered By: Adam Ferraro on 11-11-2023 RBC (Bld) [#/Vol] 4.98 10*6/uL 4.6-6.2 [facility] Blood hemoglobin measurement (mass/volume)Ordered By: Adam Ferraro on 11-11-2023 Hemoglobin (Bld) [Mass/Vol] 14.4 g/dL 13.0-16.5 [facility] Blood lymphocytes/100 leukoc ytesOrdered By: Adam Ferraro on 11-11-2023 Lymphocytes/100 WBC (Bld) 26.7 % 19-41 [facility] Blood monocytes/100 leukocyt esOrdered By: Adam Ferraro on 11-11-2023 Monocytes/100 WBC (Bld) 7.3 % 0-10 [facility] Blood platelet mean volumeOr dered By: Adam Ferraro on 11-11-2023 Platelet mean volume (Bld) [Entitic vol] 9.4 fL 6.2-12.0 [facility] Determination of erythrocyte mean corpuscular volume (MCV)Ordered By: Adam Ferraro on 11-11-2023 MCV (RBC) [Entitic vol] 89.8 fL 80-94 [facility] Hematocrit Auto (Bld) [Volum e fraction]Ordered By: Adam Ferraro on 11-11-2023 Hematocrit (Bld) [Volume fraction] 44.7 % 40-54 [facility] Laboratory - Chemistry and C hemistry - challengeOrdered By: Adam Ferraro on 11-11-2023 CO2 [Moles/Vol] 24.0 mmol/L 21.0-32.0 [facility] Urea nitrogen/Creatinine [Mass ratio] 7.8 mg/mg 10-20 [facility] Laboratory - Hematology and Cell countsOrdered By: Adam Ferraro on 12-29-2023 Erythrocyte distribution width (RBC) [Entitic vol] 42.7 fL 35.1-43.9 [facility] Erythrocyte distribution width (RBC) [Ratio] 13.1 % 11.6-14.6 [facility] Immature granulocytes/100 WBC (Bld) 0.800 % 0.0-0.9 [facility] Comment on above: IG% - Immature Granu locytes (promyelocytes, myelocytes and metamyelocytes) > 1% indicates that a LEFT SHIFT is Present. MCH (RBC) [Entitic mass] 28.9 pg 27.0-32.0 [facility] Nucleated RBC/100 WBC (Bld) [Ratio] 0 % 0-5 [facility] MCHC Auto (RBC) [Mass/Vol]Or dered By: Adam Ferraro on 11-11-2023 MCHC (RBC) [Mass/Vol] 32.2 g/dL 32-36 [facility] No Panel InformationOrdered By: Adam Ferraro on 11-11-2023 Estimated GFR (MDRD) Amer 37 mL/min >60 [facility] Comment on above: GFR Calc Estimated GFR (MDRD) Non-Af Amer 31 mL/min >60 [facility] Comment on above: Non- GFR Calc [place] Level 0.60 mmol/L 0.60-1.20 [facility] Platelets bldOrdered By: Benoit Ferraro on 11-11-2023 Platelets (Bld) [#/Vol] 252 10*3/uL 150-450 [facility] Serum or plasma albumin you urement (mass/volume)Ordered By: Adam Ferraro on 11-11-2023 Albumin [Mass/Vol] 3.1 g/dL 3.2-5.0 [facility] Serum or plasma calcium you urement (mass/volume)Ordered By: Adam Ferraro on 11-11-2023 Calcium [Mass/Vol] 8.9 mg/dL 8.5-10.1 [facility] Serum or plasma creatinine m easurement (mass/volume)Ordered By: Adam Ferraro on 11-11-2023 Creatinine [Mass/Vol] 2.31 mg/dL 0.70-1.30 [facility] Comment on above: The validity of the calculated GFR & GFRAA in patients over 70 years has not been determined. Clinical correlation is essential. Serum or plasma urea nitroge n measurement (mass/volume)Ordered By: Adam Ferraro on 11-11-2023 Urea nitrogen [Mass/Vol] 18 mg/dL 7-18 [facility] Serum or plasma uric acid me asurement (mass/volume)Ordered By: Adam Ferraro on 10-27-2023 Urate [Mass/Vol] 8.1 mg/dL 3.5-7.2 [facility] Comment on above: The drugs N-Acetylcy steine and Metamizole may falsely depress this assay. Absolute lymphocyte countOrd ered By: Alfredo Phipps on 10-14-2023 Lymphocytes Auto (Unsp spec) [#/Vol] 1.52 10*3/uL 0.83-4.51 [facility] Basophil percentageOrdered B y: Alfredo Phipps on 10-14-2023 Basophil percentage 3.2 mg/dL 2.5-4.9 [facility] Basophils/100 WBC (Bld) 1.2 % 0-1 [facility] Chloride [Moles/Vol] 110 mmol/L 98-107 [facility] Eosinophils/100 WBC (Bld) 5.0 % 0-5 [facility] Glucose [Mass/Vol] 151 mg/dL 74-106 [facility] Comment on above: Fasting Glucose resu lt greater than or equal to 126 mg/dL suggests DIABETES MELLITUS per A.D.A. criteria. Neutrophils (Bld) [#/Vol] 6.6 10*3/uL 2.0-7.7 [facility] Neutrophils/100 WBC (Bld) 68.8 % 47-70 [facility] Potassium [Moles/Vol] 3.8 mmol/L 3.5-5.1 [facility] Sodium [Moles/Vol] 141 mmol/L 136-145 [facility] WBC (Bld) [#/Vol] 9.5 10*3/uL 4.4-11.0 [facility] Blood erythrocytes count (nu mber/volume)Ordered By: Alfredo Phipps on 10-14-2023 RBC (Bld) [#/Vol] 4.51 10*6/uL 4.6-6.2 [facility] Blood hemoglobin measurement (mass/volume)Ordered By: Alfredo Phipps on 10-14-2023 Hemoglobin (Bld) [Mass/Vol] 13.0 g/dL 13.0-16.5 [facility] Blood lymphocytes/100 leukoc ytesOrdered By: Alfredo Phipps on 10-14-2023 Lymphocytes/100 WBC (Bld) 15.9 % 19-41 [facility] Blood monocytes/100 leukocyt esOrdered By: Alfredo Phipps on 10-14-2023 Monocytes/100 WBC (Bld) 8.3 % 0-10 [facility] Blood platelet mean volumeOr dered By: Alfredo Phipps on 10-14-2023 Platelet mean volume (Bld) [Entitic vol] 9.7 fL 6.2-12.0 [facility] Determination of erythrocyte mean corpuscular volume (MCV)Ordered By: Alfredo Phipps on 10-14-2023 MCV (RBC) [Entitic vol] 90.2 fL 80-94 [facility] Hematocrit Auto (Bld) [Volum e fraction]Ordered By: Alfredo Phipps on 10-14-2023 Hematocrit (Bld) [Volume fraction] 40.7 % 40-54 [facility] Laboratory - Chemistry and C hemistry - challengeOrdered By: Alfredo Phipps on 10-14-2023 CO2 [Moles/Vol] 26.0 mmol/L 21.0-32.0 [facility] Urea nitrogen/Creatinine [Mass ratio] 7.5 mg/mg 10-20 [facility] Laboratory - Hematology and Cell countsOrdered By: Alfredo Phipps on 10-14-2023 Erythrocyte distribution width (RBC) [Entitic vol] 43.6 fL 35.1-43.9 [facility] Erythrocyte distribution width (RBC) [Ratio] 13.2 % 11.6-14.6 [facility] Immature granulocytes/100 WBC (Bld) 0.800 % 0.0-0.9 [facility] Comment on above: IG% - Immature Granu locytes (promyelocytes, myelocytes and metamyelocytes) > 1% indicates that a LEFT SHIFT is Present. MCH (RBC) [Entitic mass] 28.8 pg 27.0-32.0 [facility] Nucleated RBC/100 [facility] (Bld) [[facility]] [facility] [[facility]/Vol]Or dered By: Alfredo Phipps on 10-14-2023 MCHC (RBC) [Mass/Vol] 31.9 g/dL 32-36 [facility] No Panel InformationOrdered By: Alfredo Phipps on 10-14-2023 Estimated GFR (MDRD) Amer 41 mL/min >60 [facility] Comment on above: GFR Calc Estimated GFR (MDRD) Non-Af Amer 34 mL/min >60 [facility] Comment on above: Non- GFR Calc [place] Level 0.50 mmol/L 0.60-1.20 [facility] Platelets bldOrdered By: Jennifer Phipps on 10-14-2023 Platelets (Bld) [#/Vol] 224 10*3/uL 150-450 [facility] Serum or plasma albumin you urement (mass/volume)Ordered By: Alfredo Phipps on 10-14-2023 Albumin [Mass/Vol] 2.9 g/dL 3.2-5.0 [facility] Serum or plasma calcium you urement (mass/volume)Ordered By: Alfredo Phipps on 10-14-2023 Calcium [Mass/Vol] 8.5 mg/dL 8.5-10.1 [facility] Serum or plasma creatinine m easurement (mass/volume)Ordered By: Alfredo Phipps on 10-14-2023 Creatinine [Mass/Vol] 2.12 mg/dL 0.70-1.30 [facility] Comment on above: The validity of the calculated GFR & GFRAA in patients over 70 years has not been determined. Clinical correlation is essential. Serum or plasma urea nitroge n measurement (mass/volume)Ordered By: Alfredo Phipps on 10-14-2023 Urea nitrogen [Mass/Vol] 16 mg/dL 7-18 [facility] Urine creatinine measurement (mass/volume)Ordered By: Alfredo Phipps on 10-14-2023 Creatinine (U) [Mass/Vol] 195.00 mg/dL NO RANGE EST. [facility] Urine protein measurement (m ass/volume)Ordered By: Alfredo Phipps on 10-14-2023 Protein (U) [Mass/Vol] 23.4 mg/dL 0.0-11.8 [facility] Urine protein/creatinine mas s ratioOrdered By: Alfredo Phipps on 10-14-2023 Protein/Creatinine (U) [Mass ratio] 120 mg/g CRE 0-200 [facility] Serum or plasma uric acid me asurement (mass/volume)Ordered By: Adam Ferraro on 09-27-2023 Urate [Mass/Vol] 7.3 mg/dL 3.5-7.2 [facility] Comment on above: The drugs N-Acetylcy steine and Metamizole may falsely depress this assay. Absolute lymphocyte countOrd ered By: Alfredo Phipps on 09-16-2023 Lymphocytes Auto (Unsp spec) [#/Vol] 1.78 10*3/uL 0.83-4.51 [facility] Basophil percentageOrdered B y: Alfredo Phipps on 09-16-2023 Basophil percentage 4.3 mg/dL 2.5-4.9 [facility] Basophils/100 WBC (Bld) 1.0 % 0-1 [facility] Chloride [Moles/Vol] 109 mmol/L 98-107 [facility] Eosinophils/100 WBC (Bld) 4.4 % 0-5 [facility] Glucose [Mass/Vol] 143 mg/dL 74-106 [facility] Comment on above: Fasting Glucose resu lt greater than or equal to 126 mg/dL suggests DIABETES MELLITUS per A.D.A. criteria. Neutrophils (Bld) [#/Vol] 6.3 10*3/uL 2.0-7.7 [facility] Neutrophils/100 WBC (Bld) 67.0 % 47-70 [facility] Potassium [Moles/Vol] 4.1 mmol/L 3.5-5.1 [facility] Sodium [Moles/Vol] 139 mmol/L 136-145 [facility] WBC (Bld) [#/Vol] 9.4 10*3/uL 4.4-11.0 [facility] Blood erythrocytes count (nu mber/volume)Ordered By: Alfredo Phipps on 09-16-2023 RBC (Bld) [#/Vol] 4.63 10*6/uL 4.6-6.2 [facility] Blood hemoglobin measurement (mass/volume)Ordered By: Alfredo Phipps on 09-16-2023 Hemoglobin (Bld) [Mass/Vol] 13.4 g/dL 13.0-16.5 [facility] Blood lymphocytes/100 leukoc ytesOrdered By: Alfredo Phipps on 09-16-2023 Lymphocytes/100 WBC (Bld) 19.0 % 19-41 [facility] Blood monocytes/100 leukocyt esOrdered By: Alfredo Phipps on 09-16-2023 Monocytes/100 WBC (Bld) 8.3 % 0-10 [facility] Blood platelet mean volumeOr dered By: Alfredo Phipps on 09-16-2023 Platelet mean volume (Bld) [Entitic vol] 9.6 fL 6.2-12.0 [facility] Determination of erythrocyte mean corpuscular volume (MCV)Ordered By: Alfredo Phipps on 09-16-2023 MCV (RBC) [Entitic vol] 90.5 fL 80-94 [facility] Hematocrit Auto (Bld) [Volum e fraction]Ordered By: Alfredo Phipps on 09-16-2023 Hematocrit (Bld) [Volume fraction] 41.9 % 40-54 [facility] Laboratory - Chemistry and C hemistry - challengeOrdered By: Alfredo Phipps on 09-16-2023 CO2 [Moles/Vol] 23.0 mmol/L 21.0-32.0 [facility] Urea nitrogen/Creatinine [Mass ratio] 11.6 mg/mg 10-20 [facility] Laboratory - Hematology and Cell countsOrdered By: Alfredo Phipps on 09-16-2023 Erythrocyte distribution width (RBC) [Entitic vol] 46.1 fL 35.1-43.9 [facility] Erythrocyte distribution width (RBC) [Ratio] 13.9 % 11.6-14.6 [facility] Immature granulocytes/100 WBC (Bld) 0.300 % 0.0-0.9 [facility] Comment on above: IG% - Immature Granu locytes (promyelocytes, myelocytes and metamyelocytes) > 1% indicates that a LEFT SHIFT is Present. MCH (RBC) [Entitic mass] 28.9 pg 27.0-32.0 [facility] Nucleated RBC/100 WBC (Bld) [Ratio] 0 % 0-5 [facility] [Mass/Vol]Or dered By: Alfredo Phipps on 09-16-2023 MCHC (RBC) [Mass/Vol] 32.0 g/dL 32-36 [facility] No Panel InformationOrdered By: Alfredo Phipps on 09-16-2023 Estimated GFR (MDRD) Amer 45 mL/min >60 [facility] Comment on above: GFR Calc Estimated GFR (MDRD) Non-Af Amer 37 mL/min >60 [facility] Comment on above: Non- GFR Calc [place] Level 0.60 mmol/L 0.60-1.20 [facility] Platelets bldOrdered By: Jennifer Phipps on 09-16-2023 Platelets (Bld) [#/Vol] 212 10*3/uL 150-450 [facility] Serum or plasma albumin you urement (mass/volume)Ordered By: Alfredo Phipps on 09-16-2023 Albumin [Mass/Vol] 2.9 g/dL 3.2-5.0 [facility] Serum or plasma calcium you urement (mass/volume)Ordered By: Alfredo Phipps on 09-16-2023 Calcium [Mass/Vol] 9.0 mg/dL 8.5-10.1 [facility] Serum or plasma creatinine m easurement (mass/volume)Ordered By: Alfredo Phipps on 09-16-2023 Creatinine [Mass/Vol] 1.98 mg/dL 0.70-1.30 [facility] Comment on above: The validity of the calculated GFR & GFRAA in patients over 70 years has not been determined. Clinical correlation is essential. Serum or plasma urea nitroge n measurement (mass/volume)Ordered By: Alfredo Phipps on 09-16-2023 Urea nitrogen [Mass/Vol] 23 mg/dL 7-18 [facility] Urine creatinine measurement (mass/volume)Ordered By: Alfredo Phipps on 09-16-2023 Creatinine (U) [Mass/Vol] 44.20 mg/dL NO RANGE EST. [facility] Urine protein measurement (m ass/volume)Ordered By: Alfredo Phipps on 09-16-2023 Protein (U) [Mass/Vol] mg/dL 0.0-11.8 [facility] Urine protein/creatinine mas s ratioOrdered By: Alfredo Phipps on 09-16-2023 Protein/Creatinine (U) [Mass ratio] 131 mg/g CRE 0-200 [facility] Urine creatinine measurement (mass/volume)Ordered By: Adam Ferraro on 08-22-2023 Creatinine (U) [Mass/Vol] 105.00 mg/dL NO RANGE EST. [facility] Urine protein measurement (m ass/volume)Ordered By: Adam Ferraro on 08-22-2023 Protein (U) [Mass/Vol] 19.3 mg/dL 0.0-11.8 [facility] Urine protein/creatinine mas s ratioOrdered By: Adam Ferraro on 08-22-2023 Protein/Creatinine (U) [Mass ratio] 184 mg/g CRE 0-200 [facility] Absolute lymphocyte countOrd ered By: Adam Ferraro on 08-19-2023 Lymphocytes Auto (Unsp spec) [#/Vol] 2.02 10*3/uL 0.83-4.51 [facility] Basophil percentageOrdered B y: Adam Ferraro on 08-19-2023 Basophil percentage 4.0 mg/dL 2.5-4.9 [facility] Basophils/100 WBC (Bld) 0.7 % 0-1 [facility] Chloride [Moles/Vol] 108 mmol/L 98-107 [facility] Eosinophils/100 WBC (Bld) 4.4 % 0-5 [facility] Glucose [Mass/Vol] 161 mg/dL 74-106 [facility] Comment on above: Fasting Glucose resu lt greater than or equal to 126 mg/dL suggests DIABETES MELLITUS per A.D.A. criteria. Neutrophils (Bld) [#/Vol] 7.4 10*3/uL 2.0-7.7 [facility] Neutrophils/100 WBC (Bld) 66.8 % 47-70 [facility] Potassium [Moles/Vol] 3.9 mmol/L 3.5-5.1 [facility] Sodium [Moles/Vol] 140 mmol/L 136-145 [facility] WBC (Bld) [#/Vol] 11.1 10*3/uL 4.4-11.0 [facility] Blood erythrocytes count (nu mber/volume)Ordered By: Adam Ferraro on 08-19-2023 RBC (Bld) [#/Vol] 4.67 10*6/uL 4.6-6.2 [facility] Blood hemoglobin measurement (mass/volume)Ordered By: Adam Ferraro on 08-19-2023 Hemoglobin (Bld) [Mass/Vol] 13.5 g/dL 13.0-16.5 [facility] Blood lymphocytes/100 leukoc ytesOrdered By: Adam Ferraro on 08-19-2023 Lymphocytes/100 WBC (Bld) 18.3 % 19-41 [facility] Blood monocytes/100 leukocyt esOrdered By: Adam Ferraro on 08-19-2023 Monocytes/100 WBC (Bld) 9.1 % 0-10 [facility] Blood platelet mean volumeOr dered By: Adam Ferraro on 08-19-2023 Platelet mean volume (Bld) [Entitic vol] 9.4 fL 6.2-12.0 [facility] Determination of erythrocyte mean corpuscular volume (MCV)Ordered By: Adam Ferraro on 08-19-2023 MCV (RBC) [Entitic vol] 90.1 fL 80-94 [facility] Hematocrit Auto (Bld) [Volum e fraction]Ordered By: Adam Ferraro on 08-19-2023 Hematocrit (Bld) [Volume fraction] 42.1 % 40-54 [facility] Laboratory - Chemistry and C hemistry - challengeOrdered By: Adam Ferraro on 08-19-2023 CO2 [Moles/Vol] 26.0 mmol/L 21.0-32.0 [facility] Urea nitrogen/Creatinine [Mass ratio] 10.9 mg/mg 10-20 [facility] Laboratory - Hematology and Cell countsOrdered By: Adam Ferraro on 08-19-2023 Erythrocyte distribution width (RBC) [Entitic vol] 45.8 fL 35.1-43.9 [facility] Erythrocyte distribution width (RBC) [Ratio] 13.8 % 11.6-14.6 [facility] Immature granulocytes/100 WBC (Bld) 0.700 % 0.0-0.9 [facility] Comment on above: IG% - Immature Granu locytes (promyelocytes, myelocytes and metamyelocytes) > 1% indicates that a LEFT SHIFT is Present. MCH (RBC) [Entitic mass] 28.9 pg 27.0-32.0 [facility] Nucleated RBC/100 WBC (Bld) [Ratio] 0 % 0-5 [facility] MCHC Auto (RBC) [Mass/Vol]Or dered By: Adam Ferraro on 08-19-2023 MCHC (RBC) [Mass/Vol] 32.1 g/dL 32-36 [facility] No Panel InformationOrdered By: Adam Ferraro on 08-19-2023 Estimated GFR (MDRD) Amer 44 mL/min >60 [facility] Comment on above: GFR Calc Estimated GFR (MDRD) Non-Af Amer 36 mL/min >60 [facility] Comment on above: Non- GFR Calc [place] Level 0.50 mmol/L 0.60-1.20 [facility] Platelets bldOrdered By: Benoit Ferraro on 08-19-2023 Platelets (Bld) [#/Vol] 218 10*3/uL 150-450 [facility] Serum or plasma albumin you urement (mass/volume)Ordered By: Adam Ferraro on 08-19-2023 Albumin [Mass/Vol] 2.9 g/dL 3.2-5.0 [facility] Serum or plasma calcium you urement (mass/volume)Ordered By: Adam Ferraro on 08-19-2023 Calcium [Mass/Vol] 9.0 mg/dL 8.5-10.1 [facility] Serum or plasma creatinine m easurement (mass/volume)Ordered By: Adam Ferraro on 08-19-2023 Creatinine [Mass/Vol] 2.01 mg/dL 0.70-1.30 [facility] Comment on above: The validity of the calculated GFR & GFRAA in patients over 70 years has not been determined. Clinical correlation is essential. Serum or plasma urea nitroge n measurement (mass/volume)Ordered By: Adam Ferraro on 08-19-2023 Urea nitrogen [Mass/Vol] 22 mg/dL 7-18 [facility] Whole blood hemoglobin A1c/t otal hemoglobin ratio (mass fraction)Ordered By: Adam Ferraro on 08-19-2023 HbA1c (Bld) [Mass fraction] 7.2 % 3.8-5.6 [facility] Comment on above: Normal < 5.7 % Predi abetic 5.7 - 6.4 % Diabetic >or= 6.5 % Please note range changes. Basophil percentageOrdered B y: Adam Ferraro on 07-28-2023 Cholesterol [Mass/Vol] 124 mg/dL <200 [facility] Comment on above: <200 mg/dL Desirable 200-240 mg/dL Borderline >240 mg/dL High Risk Triglyceride [Mass/Vol] 234 mg/dL <199 [facility] Comment on above: The drugs N-Acetylcy steine and Metamizole may falsely depress this assay.Serum Triglycerides Reference Interval Normal <150 mg/dL Borderline high 150 - 199 mg/dL High 200 - 499 mg/dL Very High > or = 500 mg/dL Serum or plasma cholesterol in HDL measurement (mass/volume)Ordered By: Adam Ferraro on 07-28-2023 Cholesterol in HDL [Mass/Vol] 36 mg/dL >40 [facility] Comment on above: The drugs N-Acetylcy steine and Metamizole may falsely depress this assay. Reference Range HDL <40 mg/dL Low HDL Cholesterol HDL >or= 60 mg/dL High HDL Cholesterol Serum or plasma cholesterol in VLDL measurement (mass/volume)Ordered By: Adam Ferraro on 07-28-2023 Cholesterol in VLDL [Mass/Vol] 47 mg/dL 5-40 [facility] Serum or plasma low density lipoprotein (LDL) cholesterol measurement (mass/volume)Ordered By: Adam Ferraro on 07-28-2023 Cholesterol in LDL [Mass/Vol] 41 mg/dL 0-130 [facility] Serum or plasma uric acid me asurement (mass/volume)Ordered By: Adam Ferraro on 07-28-2023 Urate [Mass/Vol] 6.6 mg/dL 3.5-7.2 [facility] Comment on above: The drugs N-Acetylcy steine and Metamizole may falsely depress this assay. Urine creatinine measurement (mass/volume)Ordered By: Adam Ferraro on 07-24-2023 Creatinine (U) [Mass/Vol] 113.00 mg/dL NO RANGE EST. [facility] Urine protein measurement (m ass/volume)Ordered By: Adam Ferraro on 07-24-2023 Protein (U) [Mass/Vol] 15.1 mg/dL 0.0-11.8 [facility] Urine protein/creatinine mas s ratioOrdered By: Adam Ferraro on 07-24-2023 Protein/Creatinine (U) [Mass ratio] 134 mg/g CRE 0-200 [facility] Absolute lymphocyte countOrd ered By: Alfredo Phipps on 07-22-2023 Lymphocytes Auto (Unsp spec) [#/Vol] 1.60 10*3/uL 0.83-4.51 [facility] Basophil percentageOrdered B y: Alfredo Phipps on 07-22-2023 Basophil percentage 4.2 mg/dL 2.5-4.9 [facility] Basophils/100 WBC (Bld) 1.1 % 0-1 [facility] Chloride [Moles/Vol] 108 mmol/L 98-107 [facility] Eosinophils/100 WBC (Bld) 2.7 % 0-5 [facility] Glucose [Mass/Vol] 138 mg/dL 74-106 [facility] Comment on above: Fasting Glucose resu lt greater than or equal to 126 mg/dL suggests DIABETES MELLITUS per A.D.A. criteria. Neutrophils (Bld) [#/Vol] 6.9 10*3/uL 2.0-7.7 [facility] Neutrophils/100 WBC (Bld) 69.3 % 47-70 [facility] Potassium [Moles/Vol] 3.8 mmol/L 3.5-5.1 [facility] Sodium [Moles/Vol] 135 mmol/L 136-145 [facility] WBC (Bld) [#/Vol] 9.9 10*3/uL 4.4-11.0 [facility] Blood erythrocytes count (nu mber/volume)Ordered By: Alfredo Phipps on 07-22-2023 RBC (Bld) [#/Vol] 4.79 10*6/uL 4.6-6.2 [facility] Blood hemoglobin measurement (mass/volume)Ordered By: Alfredo Phipps on 07-22-2023 Hemoglobin (Bld) [Mass/Vol] 13.6 g/dL 13.0-16.5 [facility] Blood lymphocytes/100 leukoc ytesOrdered By: Alfredo Phipps on 07-22-2023 Lymphocytes/100 WBC (Bld) 16.1 % 19-41 [facility] Blood monocytes/100 leukocyt esOrdered By: Alfredo Phipps on 07-22-2023 Monocytes/100 WBC (Bld) 10.2 % 0-10 [facility] Blood platelet mean volumeOr dered By: Alfredo Phipps on 07-22-2023 Platelet mean volume (Bld) [Entitic vol] 10.8 fL 6.2-12.0 [facility] Determination of erythrocyte mean corpuscular volume (MCV)Ordered By: Alfredo Phipps on 07-22-2023 MCV (RBC) [Entitic vol] 98.1 fL 80-94 [facility] Hematocrit Auto (Bld) [Volum e fraction]Ordered By: Alfredo Phipps on 07-22-2023 Hematocrit (Bld) [Volume fraction] 47.0 % 40-54 [facility] Laboratory - Chemistry and C hemistry - challengeOrdered By: Alfredo Phipps on 07-22-2023 CO2 [Moles/Vol] 19.0 mmol/L 21.0-32.0 [facility] Urea nitrogen/Creatinine [Mass ratio] 10.7 mg/mg 10-20 [facility] Laboratory - Hematology and Cell countsOrdered By: Alfredo Phipps on 07-22-2023 Erythrocyte distribution width (RBC) [Entitic vol] 58.0 fL 35.1-43.9 [facility] Erythrocyte distribution width (RBC) [Ratio] 16.4 % 11.6-14.6 [facility] Immature granulocytes/100 WBC (Bld) 0.600 % 0.0-0.9 [facility] Comment on above: IG% - Immature Granu locytes (promyelocytes, myelocytes and metamyelocytes) > 1% indicates that a LEFT SHIFT is Present. MCH (RBC) [Entitic mass] 28.4 pg 27.0-32.0 [facility] Nucleated RBC/100 WBC (Bld) [Ratio] 0 % 0-5 [facility] MCHC Auto (RBC) [Mass/Vol]Or dered By: Alfredo Phipps on 07-22-2023 MCHC (RBC) [Mass/Vol] 28.9 g/dL 32-36 [facility] No Panel InformationOrdered By: Alfredo Phipps on 07-22-2023 Estimated GFR (MDRD) Amer 45 mL/min >60 [facility] Comment on above: GFR Calc Estimated GFR (MDRD) Non-Af Amer 37 mL/min >60 [facility] Comment on above: Non- GFR Calc [place] Level 0.60 mmol/L 0.60-1.20 [facility] Platelets bldOrdered By: Pet er Desire on 07-22-2023 Platelets (Bld) [#/Vol] 209 10*3/uL 150-450 [facility] Serum or plasma albumin you urement (mass/volume)Ordered By: Alfredo Phipps on 07-22-2023 Albumin [Mass/Vol] 2.6 g/dL 3.2-5.0 [facility] Serum or plasma calcium you urement (mass/volume)Ordered By: Alfredo Phipps on 07-22-2023 Calcium [Mass/Vol] 9.1 mg/dL 8.5-10.1 [facility] Serum or plasma creatinine m easurement (mass/volume)Ordered By: Alfredo Phipps on 07-22-2023 Creatinine [Mass/Vol] 1.97 mg/dL 0.70-1.30 [facility] Comment on above: The validity of the calculated GFR & GFRAA in patients over 70 years has not been determined. Clinical correlation is essential. Serum or plasma urea nitroge n measurement (mass/volume)Ordered By: Alfredo Phipps on 07-22-2023 Urea nitrogen [Mass/Vol] 21 mg/dL 7-18 [facility] Absolute lymphocyte countOrd ered By: Alfredo Phipps on 06-24-2023 Lymphocytes Auto (Unsp spec) [#/Vol] 2.04 10*3/uL 0.83-4.51 [facility] Basophil percentageOrdered B y: Alfredo Phipps on 06-24-2023 Basophil percentage 4.4 mg/dL 2.5-4.9 [facility] Basophils/100 WBC (Bld) 1.2 % 0-1 [facility] Chloride [Moles/Vol] 107 mmol/L 98-107 [facility] Eosinophils/100 WBC (Bld) 5.2 % 0-5 [facility] Glucose [Mass/Vol] 144 mg/dL 74-106 [facility] Comment on above: Fasting Glucose resu lt greater than or equal to 126 mg/dL suggests DIABETES MELLITUS per A.D.A. criteria. Neutrophils (Bld) [#/Vol] 5.9 10*3/uL 2.0-7.7 [facility] Neutrophils/100 WBC (Bld) 62.3 % 47-70 [facility] Potassium [Moles/Vol] 3.7 mmol/L 3.5-5.1 [facility] Sodium [Moles/Vol] 138 mmol/L 136-145 [facility] WBC (Bld) [#/Vol] 9.4 10*3/uL 4.4-11.0 [facility] Blood erythrocytes count (nu mber/volume)Ordered By: Alfredo Phipps on 06-24-2023 RBC (Bld) [#/Vol] 4.95 10*6/uL 4.6-6.2 [facility] Blood hemoglobin measurement (mass/volume)Ordered By: Alfredo Phipps on 06-24-2023 Hemoglobin (Bld) [Mass/Vol] 14.2 g/dL 13.0-16.5 [facility] Blood lymphocytes/100 leukoc ytesOrdered By: Alfredo Phipps on 06-24-2023 Lymphocytes/100 WBC (Bld) 21.7 % 19-41 [facility] Blood monocytes/100 leukocyt esOrdered By: Alfredo Phipps on 06-24-2023 Monocytes/100 WBC (Bld) 9.1 % 0-10 [facility] Blood platelet mean volumeOr dered By: Alfredo Phipps on 06-24-2023 Platelet mean volume (Bld) [Entitic vol] 9.8 fL 6.2-12.0 [facility] Determination of erythrocyte mean corpuscular volume (MCV)Ordered By: Alfredo Phipps on 06-24-2023 MCV (RBC) [Entitic vol] 88.5 fL 80-94 [facility] Hematocrit Auto (Bld) [Volum e fraction]Ordered By: Alfredo Phipps on 06-24-2023 Hematocrit (Bld) [Volume fraction] 43.8 % 40-54 [facility] Laboratory - Chemistry and C hemistry - challengeOrdered By: Alfredo Phipps on 06-24-2023 CO2 [Moles/Vol] 25.0 mmol/L 21.0-32.0 [facility] Urea nitrogen/Creatinine [Mass ratio] 11.5 mg/mg 10-20 [facility] Laboratory - Hematology and Cell countsOrdered By: Alfredo Phipps on 06-24-2023 Erythrocyte distribution width (RBC) [Entitic vol] 42.3 fL 35.1-43.9 [facility] Erythrocyte distribution width (RBC) [Ratio] 13.1 % 11.6-14.6 [facility] Immature granulocytes/100 WBC (Bld) 0.500 % 0.0-0.9 [facility] Comment on above: IG% - Immature Granu locytes (promyelocytes, myelocytes and metamyelocytes) > 1% indicates that a LEFT SHIFT is Present. MCH (RBC) [Entitic mass] 28.7 pg 27.0-32.0 [facility] Nucleated RBC/100 WBC (Bld) [Ratio] 0 % 0-5 [facility] MCHC Auto (RBC) [Mass/Vol]Or dered By: Alfredo Phipps on 06-24-2023 MCHC (RBC) [Mass/Vol] 32.4 g/dL 32-36 [facility] No Panel InformationOrdered By: Alfredo Phipps on 06-24-2023 Estimated GFR (MDRD) Amer 49 mL/min >60 [facility] Comment on above: GFR Calc Estimated GFR (MDRD) Non-Af Amer 40 mL/min >60 [facility] Comment on above: Non- GFR Calc [place] Level 0.60 mmol/L 0.60-1.20 [facility] Platelets bldOrdered By: Jennifer Phipps on 06-24-2023 Platelets (Bld) [#/Vol] 213 10*3/uL 150-450 [facility] Serum or plasma albumin yuo urement (mass/volume)Ordered By: Alfredo Phipps on 06-24-2023 Albumin [Mass/Vol] 2.9 g/dL 3.2-5.0 [facility] Serum or plasma calcium you urement (mass/volume)Ordered By: Alfredo Phipps on 06-24-2023 Calcium [Mass/Vol] 9.1 mg/dL 8.5-10.1 [facility] Serum or plasma creatinine m easurement (mass/volume)Ordered By: Alfredo Phipps on 06-24-2023 Creatinine [Mass/Vol] 1.83 mg/dL 0.70-1.30 [facility] Comment on above: The validity of the calculated GFR & GFRAA in patients over 70 years has not been determined. Clinical correlation is essential. Serum or plasma urea nitroge n measurement (mass/volume)Ordered By: Alfredo Phipps on 06-24-2023 Urea nitrogen [Mass/Vol] 21 mg/dL 7-18 [facility] Serum or plasma uric acid me asurement (mass/volume)Ordered By: Alfredo Phipps on 06-24-2023 Urate [Mass/Vol] 6.5 mg/dL 3.5-7.2 [facility] Comment on above: The drugs N-Acetylcy steine and Metamizole may falsely depress this assay. Urine creatinine measurement (mass/volume)Ordered By: Alfredo Phipps on 06-24-2023 Creatinine (U) [Mass/Vol] 127.00 mg/dL NO RANGE EST. [facility] Urine protein measurement (m ass/volume)Ordered By: Alfredo Phipps on 06-24-2023 Protein (U) [Mass/Vol] 19.9 mg/dL 0.0-11.8 [facility] Urine protein/creatinine mas s ratioOrdered By: Alfredo Phipps on 06-24-2023 Protein/Creatinine (U) [Mass ratio] 157 mg/g CRE 0-200 [facility] Urine creatinine measurement (mass/volume)Ordered By: Adam Ferraro on 05-30-2023 Creatinine (U) [Mass/Vol] 73.90 mg/dL NO RANGE EST. [facility] Urine protein measurement (m ass/volume)Ordered By: Adam Ferraro on 05-30-2023 Protein (U) [Mass/Vol] 18.0 mg/dL 0.0-11.8 [facility] Urine protein/creatinine mas s ratioOrdered By: Adam Ferraro on 05-30-2023 Protein/Creatinine (U) [Mass ratio] 244 mg/g CRE 0-200 [facility] Absolute lymphocyte countOrd ered By: Adam Ferraro on 05-27-2023 Lymphocytes Auto (Unsp spec) [#/Vol] 1.85 10*3/uL 0.83-4.51 [facility] Basophil percentageOrdered B y: Adam Ferraro on 05-27-2023 Basophil percentage 3.9 mg/dL 2.5-4.9 [facility] Basophils/100 WBC (Bld) 1.1 % 0-1 [facility] Chloride [Moles/Vol] 106 mmol/L 98-107 [facility] Eosinophils/100 WBC (Bld) 3.3 % 0-5 [facility] Glucose [Mass/Vol] 208 mg/dL 74-106 [facility] Comment on above: Glucose result great er than or equal to 200 mg/dLsuggests DIABETES MELLITUS per A.D.A. criteria. Neutrophils (Bld) [#/Vol] 5.6 10*3/uL 2.0-7.7 [facility] Neutrophils/100 WBC (Bld) 64.5 % 47-70 [facility] Potassium [Moles/Vol] 3.7 mmol/L 3.5-5.1 [facility] Sodium [Moles/Vol] 138 mmol/L 136-145 [facility] WBC (Bld) [#/Vol] 8.7 10*3/uL 4.4-11.0 [facility] Blood erythrocytes count (nu mber/volume)Ordered By: Adam Ferraro on 05-27-2023 RBC (Bld) [#/Vol] 4.98 10*6/uL 4.6-6.2 [facility] Blood hemoglobin measurement (mass/volume)Ordered By: Adam Ferraro on 05-27-2023 Hemoglobin (Bld) [Mass/Vol] 14.4 g/dL 13.0-16.5 [facility] Blood lymphocytes/100 leukoc ytesOrdered By: Adam Ferraro on 05-27-2023 Lymphocytes/100 WBC (Bld) 21.2 % 19-41 [facility] Blood monocytes/100 leukocyt esOrdered By: Adam Ferraro on 05-27-2023 Monocytes/100 WBC (Bld) 9.3 % 0-10 [facility] Blood platelet mean volumeOr dered By: Adam Ferraro on 05-27-2023 Platelet mean volume (Bld) [Entitic vol] 10.0 fL 6.2-12.0 [facility] Determination of erythrocyte mean corpuscular volume (MCV)Ordered By: Adam Ferraro on 05-27-2023 MCV (RBC) [Entitic vol] 89.6 fL 80-94 [facility] Hematocrit Auto (Bld) [Volum e fraction]Ordered By: Adam Ferraro on 05-27-2023 Hematocrit (Bld) [Volume fraction] 44.6 % 40-54 [facility] Laboratory - Chemistry and C hemistry - challengeOrdered By: Adam Ferraro on 05-27-2023 CO2 [Moles/Vol] 27.0 mmol/L 21.0-32.0 [facility] Urea nitrogen/Creatinine [Mass ratio] 11.5 mg/mg 10-20 [facility] Laboratory - Hematology and Cell countsOrdered By: Adam Ferraro on 05-27-2023 Erythrocyte distribution width (RBC) [Entitic vol] 42.2 fL 35.1-43.9 [facility] Erythrocyte distribution width (RBC) [Ratio] 13.0 % 11.6-14.6 [facility] Immature granulocytes/100 WBC (Bld) 0.600 % 0.0-0.9 [facility] Comment on above: IG% - Immature Granu locytes (promyelocytes, myelocytes and metamyelocytes) > 1% indicates that a LEFT SHIFT is Present. MCH (RBC) [Entitic mass] 28.9 pg 27.0-32.0 [facility] Nucleated RBC/100 WBC (Bld) [Ratio] 0 % 0-5 [facility] MCHC Auto (RBC) [Mass/Vol]Or dered By: Adam Ferraro on 05-27-2023 MCHC (RBC) [Mass/Vol] 32.3 g/dL 32-36 [facility] No Panel InformationOrdered By: Adam Ferraro on 05-27-2023 Estimated GFR (MDRD) Amer 52 mL/min >60 [facility] Comment on above: GFR Calc Estimated GFR (MDRD) Non-Af Amer 43 mL/min >60 [facility] Comment on above: Non- GFR Calc [place] Level 0.40 mmol/L 0.60-1.20 [facility] Platelets bldOrdered By: Benoit Ferraro on 05-27-2023 Platelets (Bld) [#/Vol] 211 10*3/uL 150-450 [facility] Serum or plasma albumin you urement (mass/volume)Ordered By: Adam Ferraro on 05-27-2023 Albumin [Mass/Vol] 2.9 g/dL 3.2-5.0 [facility] Serum or plasma calcium you urement (mass/volume)Ordered By: Adam Ferraro on 05-27-2023 Calcium [Mass/Vol] 9.2 mg/dL 8.5-10.1 [facility] Serum or plasma creatinine m easurement (mass/volume)Ordered By: Adam Ferraro on 05-27-2023 Creatinine [Mass/Vol] 1.74 mg/dL 0.70-1.30 [facility] Comment on above: The validity of the calculated GFR & GFRAA in patients over 70 years has not been determined. Clinical correlation is essential. Serum or plasma urea nitroge n measurement (mass/volume)Ordered By: Adam Ferraro on 05-27-2023 Urea nitrogen [Mass/Vol] 20 mg/dL 7-18 [facility] Serum or plasma uric acid me asurement (mass/volume)Ordered By: Adam Ferraro on 05-27-2023 Urate [Mass/Vol] 4.9 mg/dL 3.5-7.2 [facility] Comment on above: The drugs N-Acetylcy steine and Metamizole may falsely depress this assay. Whole blood hemoglobin A1c/t otal hemoglobin ratio (mass fraction)Ordered By: Adam Ferraro on 05-19-2023 HbA1c (Bld) [Mass fraction] 11.1 % 3.8-5.6 [facility] Comment on above: Normal < 5.7 % Predi abetic 5.7 - 6.4 % Diabetic >or= 6.5 % Please note range changes. Absolute lymphocyte countOrd ered By: Alfredo Phipps on 06-16-2023 Lymphocytes Auto (Unsp spec) [#/Vol] 1.98 10*3/uL 0.83-4.51 [facility] Basophil percentageOrdered B y: Alfredo Phipps on 04-29-2023 Basophil percentage 3.6 mg/dL 2.5-4.9 [facility] Basophils/100 WBC (Bld) 1.0 % 0-1 [facility] Chloride [Moles/Vol] 105 mmol/L 98-107 [facility] Eosinophils/100 WBC (Bld) 2.7 % 0-5 [facility] Glucose [Mass/Vol] 300 mg/dL 74-106 [facility] Comment on above: Glucose result great er than or equal to 200 mg/dLsuggests DIABETES MELLITUS per A.D.A. criteria. Neutrophils (Bld) [#/Vol] 5.7 10*3/uL 2.0-7.7 [facility] Neutrophils/100 WBC (Bld) 64.2 % 47-70 [facility] Potassium [Moles/Vol] 3.9 mmol/L 3.5-5.1 [facility] Sodium [Moles/Vol] 138 mmol/L 136-145 [facility] WBC (Bld) [#/Vol] 8.9 10*3/uL 4.4-11.0 [facility] Blood erythrocytes count (nu mber/volume)Ordered By: Alfredo Phipps on 04-29-2023 RBC (Bld) [#/Vol] 4.74 10*6/uL 4.6-6.2 [facility] Blood hemoglobin measurement (mass/volume)Ordered By: Alfredo Phipps on 04-29-2023 Hemoglobin (Bld) [Mass/Vol] 13.6 g/dL 13.0-16.5 [facility] Blood lymphocytes/100 leukoc ytesOrdered By: Alfredo Phipps on 04-29-2023 Lymphocytes/100 WBC (Bld) 22.2 % 19-41 [facility] Blood monocytes/100 leukocyt esOrdered By: Alfredo Phipps on 04-29-2023 Monocytes/100 WBC (Bld) 9.2 % 0-10 [facility] Blood platelet mean volumeOr dered By: Alfredo Phipps on 04-29-2023 Platelet mean volume (Bld) [Entitic vol] 9.7 fL 6.2-12.0 [facility] Determination of erythrocyte mean corpuscular volume (MCV)Ordered By: Alfredo Phipps on 04-29-2023 MCV (RBC) [Entitic vol] 87.8 fL 80-94 [facility] Hematocrit Auto (Bld) [Volum e fraction]Ordered By: Alfredo Phipps on 04-29-2023 Hematocrit (Bld) [Volume fraction] 41.6 % 40-54 [facility] Laboratory - Chemistry and C hemistry - challengeOrdered By: Alfredo Phipps on 04-29-2023 CO2 [Moles/Vol] 24.0 mmol/L 21.0-32.0 [facility] Urea nitrogen/Creatinine [Mass ratio] 13.7 mg/mg 10-20 [facility] Laboratory - Hematology and Cell countsOrdered By: Alfredo Phipps on 04-29-2023 Erythrocyte distribution width (RBC) [Entitic vol] 41.7 fL 35.1-43.9 [facility] Erythrocyte distribution width (RBC) [Ratio] 12.9 % 11.6-14.6 [facility] Immature granulocytes/100 WBC (Bld) 0.700 % 0.0-0.9 [facility] Comment on above: IG% - Immature Granu locytes (promyelocytes, myelocytes and metamyelocytes) > 1% indicates that a LEFT SHIFT is Present. MCH (RBC) [Entitic mass] 28.7 pg 27.0-32.0 [facility] Nucleated RBC/100 WBC (Bld) [Ratio] 0 % 0-5 [facility] MCHC Auto (RBC) [Mass/Vol]Or dered By: Alfredo Phipps on 04-29-2023 MCHC (RBC) [Mass/Vol] 32.7 g/dL 32-36 [facility] No Panel InformationOrdered By: Alfredo Phipps on 04-29-2023 Estimated GFR (MDRD) Amer 51 mL/min >60 [facility] Comment on above: GFR Calc Estimated GFR (MDRD) Non-Af Amer 43 mL/min >60 [facility] Comment on above: Non- GFR Calc [place] Level 0.40 mmol/L 0.60-1.20 [facility] Platelets bldOrdered By: Jennifer shonda Desire on 04-29-2023 Platelets (Bld) [#/Vol] 204 10*3/uL 150-450 [facility] Serum or plasma albumin you urement (mass/volume)Ordered By: Alfredo Phipps on 04-29-2023 Albumin [Mass/Vol] 2.7 g/dL 3.2-5.0 [facility] Serum or plasma calcium you urement (mass/volume)Ordered By: Alfredo Phipps on 04-29-2023 Calcium [Mass/Vol] 8.9 mg/dL 8.5-10.1 [facility] Serum or plasma creatinine m easurement (mass/volume)Ordered By: Alfredo Phipps on 04-29-2023 Creatinine [Mass/Vol] 1.75 mg/dL 0.70-1.30 [facility] Comment on above: The validity of the calculated GFR & GFRAA in patients over 70 years has not been determined. Clinical correlation is essential. Serum or plasma urea nitroge n measurement (mass/volume)Ordered By: Alfredo Phipps on 04-29-2023 Urea nitrogen [Mass/Vol] 24 mg/dL 7-18 [facility] Serum or plasma uric acid me asurement (mass/volume)Ordered By: Alfredo Phipps on 04-27-2023 Urate [Mass/Vol] 4.8 mg/dL 3.5-7.2 [facility] Comment on above: The drugs N-Acetylcy steine and Metamizole may falsely depress this assay. Urine creatinine measurement (mass/volume)Ordered By: Adam Ferraro on 04-04-2023 Creatinine (U) [Mass/Vol] 96.50 mg/dL NO RANGE EST. [facility] Urine protein measurement (m ass/volume)Ordered By: Adam Ferraro on 04-04-2023 Protein (U) [Mass/Vol] 26.4 mg/dL 0.0-11.8 [facility] Urine protein/creatinine mas s ratioOrdered By: Adam Ferraro on 04-04-2023 Protein/Creatinine (U) [Mass ratio] 274 mg/g CRE 0-200 [facility] Absolute lymphocyte countOrd ered By: Adam Ferraro on 04-01-2023 Lymphocytes Auto (Unsp spec) [#/Vol] 1.91 10*3/uL 0.83-4.51 [facility] Basophil percentageOrdered B y: Adam Ferraro on 04-01-2023 Basophil percentage 3.3 mg/dL 2.5-4.9 [facility] Basophils/100 WBC (Bld) 1.1 % 0-1 [facility] Chloride [Moles/Vol] 105 mmol/L 98-107 [facility] Eosinophils/100 WBC (Bld) 2.7 % 0-5 [facility] Glucose [Mass/Vol] 317 mg/dL 74-106 [facility] Comment on above: Glucose result great er than or equal to 200 mg/dLsuggests DIABETES MELLITUS per A.D.A. criteria. Neutrophils (Bld) [#/Vol] 5.4 10*3/uL 2.0-7.7 [facility] Neutrophils/100 WBC (Bld) 64.7 % 47-70 [facility] Potassium [Moles/Vol] 3.8 mmol/L 3.5-5.1 [facility] Sodium [Moles/Vol] 137 mmol/L 136-145 [facility] WBC (Bld) [#/Vol] 8.4 10*3/uL 4.4-11.0 [facility] Blood erythrocytes count (nu mber/volume)Ordered By: Adam Ferraro on 04-01-2023 RBC (Bld) [#/Vol] 5.17 10*6/uL 4.6-6.2 [facility] Blood hemoglobin measurement (mass/volume)Ordered By: Adam Ferraro on 04-01-2023 Hemoglobin (Bld) [Mass/Vol] 14.7 g/dL 13.0-16.5 [facility] Blood lymphocytes/100 leukoc ytesOrdered By: Adam Ferraro on 04-01-2023 Lymphocytes/100 WBC (Bld) 22.7 % 19-41 [facility] Blood monocytes/100 leukocyt esOrdered By: Adam Ferraro on 04-01-2023 Monocytes/100 WBC (Bld) 8.2 % 0-10 [facility] Blood platelet mean volumeOr dered By: Adam Ferraro on 04-01-2023 Platelet mean volume (Bld) [Entitic vol] 9.8 fL 6.2-12.0 [facility] Determination of erythrocyte mean corpuscular volume (MCV)Ordered By: Adam Ferraro on 04-01-2023 MCV (RBC) [Entitic vol] 88.6 fL 80-94 [facility] Hematocrit Auto (Bld) [Volum e fraction]Ordered By: Adam Ferraro on 04-01-2023 Hematocrit (Bld) [Volume fraction] 45.8 % 40-54 [facility] Laboratory - Chemistry and C hemistry - challengeOrdered By: Adam Ferraro on 04-01-2023 CO2 [Moles/Vol] 25.0 mmol/L 21.0-32.0 [facility] Urea nitrogen/Creatinine [Mass ratio] 13.7 mg/mg 10-20 [facility] Laboratory - Hematology and Cell countsOrdered By: Adam Ferraro on 04-01-2023 Erythrocyte distribution width (RBC) [Entitic vol] 42.5 fL 35.1-43.9 [facility] Erythrocyte distribution width (RBC) [Ratio] 13.1 % 11.6-14.6 [facility] Immature granulocytes/100 WBC (Bld) 0.600 % 0.0-0.9 [facility] Comment on above: IG% - Immature Granu locytes (promyelocytes, myelocytes and metamyelocytes) > 1% indicates that a LEFT SHIFT is Present. MCH (RBC) [Entitic mass] 28.4 pg 27.0-32.0 [facility] Nucleated RBC/100 WBC (Bld) [Ratio] 0 % 0-5 [facility] MCHC Auto (RBC) [Mass/Vol]Or dered By: Adam Ferraro on 04-01-2023 MCHC (RBC) [Mass/Vol] 32.1 g/dL 32-36 [facility] No Panel InformationOrdered By: Adam Ferraro on 04-01-2023 Estimated GFR (MDRD) Amer 49 mL/min >60 [facility] Comment on above: GFR Calc Estimated GFR (MDRD) Non-Af Amer 41 mL/min >60 [facility] Comment on above: Non- GFR Calc [place] Level < 0.20 mmol/L 0.60-1.20 [facility] Platelets bldOrdered By: Benoit ivey Jasmine on 04-01-2023 Platelets (Bld) [#/Vol] 209 10*3/uL 150-450 [facility] Serum or plasma albumin you urement (mass/volume)Ordered By: Adam Ferraro on 04-01-2023 Albumin [Mass/Vol] 3.0 g/dL 3.2-5.0 [facility] Serum or plasma calcium you urement (mass/volume)Ordered By: Adam Ferraro on 04-01-2023 Calcium [Mass/Vol] 8.9 mg/dL 8.5-10.1 [facility] Serum or plasma creatinine m easurement (mass/volume)Ordered By: Adam Ferraro on 04-01-2023 Creatinine [Mass/Vol] 1.82 mg/dL 0.70-1.30 [facility] Comment on above: The validity of the calculated GFR & GFRAA in patients over 70 years has not been determined. Clinical correlation is essential. Serum or plasma urea nitroge n measurement (mass/volume)Ordered By: Adam Ferraro on 04-01-2023 Urea nitrogen [Mass/Vol] 25 mg/dL 7-18 [facility] Absolute lymphocyte countOrd ered By: Alfredo Phipps on 03-04-2023 Lymphocytes Auto (Unsp spec) [#/Vol] 2.18 10*3/uL 0.83-4.51 [facility] Basophil percentageOrdered B y: Alfredo Phipps on 03-04-2023 Basophil percentage 3.9 mg/dL 2.5-4.9 [facility] Basophils/100 WBC (Bld) 0.9 % 0-1 [facility] Chloride [Moles/Vol] 109 mmol/L 98-107 [facility] Eosinophils/100 WBC (Bld) 3.5 % 0-5 [facility] Glucose [Mass/Vol] 179 mg/dL 74-106 [facility] Comment on above: Fasting Glucose resu lt greater than or equal to 126 mg/dL suggests DIABETES MELLITUS per A.D.A. criteria. Neutrophils (Bld) [#/Vol] 6.1 10*3/uL 2.0-7.7 [facility] Neutrophils/100 WBC (Bld) 63.2 % 47-70 [facility] Potassium [Moles/Vol] 3.9 mmol/L 3.5-5.1 [facility] Sodium [Moles/Vol] 138 mmol/L 136-145 [facility] WBC (Bld) [#/Vol] 9.6 10*3/uL 4.4-11.0 [facility] Blood erythrocytes count (nu mber/volume)Ordered By: Alfredo Phipps on 03-04-2023 RBC (Bld) [#/Vol] 4.74 10*6/uL 4.6-6.2 [facility] Blood hemoglobin measurement (mass/volume)Ordered By: Alfredo Phipps on 03-04-2023 Hemoglobin (Bld) [Mass/Vol] 13.6 g/dL 13.0-16.5 [facility] Blood lymphocytes/100 leukoc ytesOrdered By: Alfredo Phipps on 03-04-2023 Lymphocytes/100 WBC (Bld) 22.6 % 19-41 [facility] Blood monocytes/100 leukocyt esOrdered By: Alfredo Phipps on 03-04-2023 Monocytes/100 WBC (Bld) 9.4 % 0-10 [facility] Blood platelet mean volumeOr dered By: Alfredo Phipps on 03-04-2023 Platelet mean volume (Bld) [Entitic vol] 9.7 fL 6.2-12.0 [facility] Determination of erythrocyte mean corpuscular volume (MCV)Ordered By: Alfredo Phipps on 03-04-2023 MCV (RBC) [Entitic vol] 90.3 fL 80-94 [facility] Hematocrit Auto (Bld) [Volum e fraction]Ordered By: Alfredo Phipps on 03-04-2023 Hematocrit (Bld) [Volume fraction] 42.8 % 40-54 [facility] Laboratory - Chemistry and C hemistry - challengeOrdered By: Alfredo Phipps on 03-04-2023 CO2 [Moles/Vol] 26.0 mmol/L 21.0-32.0 [facility] Urea nitrogen/Creatinine [Mass ratio] 13.9 mg/mg 10-20 [facility] Laboratory - Hematology and Cell countsOrdered By: Alfredo Phipps on 03-04-2023 Erythrocyte distribution width (RBC) [Entitic vol] 42.8 fL 35.1-43.9 [facility] Erythrocyte distribution width (RBC) [Ratio] 12.9 % 11.6-14.6 [facility] Immature granulocytes/100 WBC (Bld) 0.400 % 0.0-0.9 [facility] Comment on above: IG% - Immature Granu locytes (promyelocytes, myelocytes and metamyelocytes) > 1% indicates that a LEFT SHIFT is Present. MCH (RBC) [Entitic mass] 28.7 pg 27.0-32.0 [facility] Nucleated RBC/100 WBC (Bld) [Ratio] 0 % 0-5 [facility] MCHC Auto (RBC) [Mass/Vol]Or dered By: Alfredo Phipps on 03-04-2023 MCHC (RBC) [Mass/Vol] 31.8 g/dL 32-36 [facility] No Panel InformationOrdered By: Alfredo Phipps on 03-04-2023 Estimated GFR (MDRD) Amer 55 mL/min >60 [facility] Comment on above: GFR Calc Estimated GFR (MDRD) Non-Af Amer 46 mL/min >60 [facility] Comment on above: Non- GFR Calc [place] Level 0.40 mmol/L 0.60-1.20 [facility] Platelets bldOrdered By: Jennifer Phipps on 03-04-2023 Platelets (Bld) [#/Vol] 207 10*3/uL 150-450 [facility] Serum or plasma albumin you urement (mass/volume)Ordered By: Alfredo Phipps on 03-04-2023 Albumin [Mass/Vol] 2.8 g/dL 3.2-5.0 [facility] Serum or plasma calcium you urement (mass/volume)Ordered By: Alfredo Phipps on 03-04-2023 Calcium [Mass/Vol] 9.2 mg/dL 8.5-10.1 [facility] Serum or plasma creatinine m easurement (mass/volume)Ordered By: Alfredo Phipps on 03-04-2023 Creatinine [Mass/Vol] 1.65 mg/dL 0.70-1.30 [facility] Comment on above: The validity of the calculated GFR & GFRAA in patients over 70 years has not been determined. Clinical correlation is essential. Serum or plasma urea nitroge n measurement (mass/volume)Ordered By: Alfredo Phipps on 03-04-2023 Urea nitrogen [Mass/Vol] 23 mg/dL 7-18 [facility] Serum or plasma uric acid me asurement (mass/volume)Ordered By: Alfredo Phipps on 02-25-2023 Urate [Mass/Vol] 5.6 mg/dL 3.5-7.2 [facility] Comment on above: The drugs N-Acetylcy steine and Metamizole may falsely depress this assay. Absolute lymphocyte countOrd ered By: Alfredo Phipps on 02-04-2023 Lymphocytes Auto (Unsp spec) [#/Vol] 2.03 10*3/uL 0.83-4.51 [facility] Basophil percentageOrdered B y: Alfredo Phipps on 02-04-2023 Basophil percentage 4.3 mg/dL 2.5-4.9 [facility] Basophils/100 WBC (Bld) 1.2 % 0-1 [facility] Chloride [Moles/Vol] 108 mmol/L 98-107 [facility] Eosinophils/100 WBC (Bld) 3.6 % 0-5 [facility] Glucose [Mass/Vol] 193 mg/dL 74-106 [facility] Comment on above: Fasting Glucose resu lt greater than or equal to 126 mg/dL suggests DIABETES MELLITUS per A.D.A. criteria. Neutrophils (Bld) [#/Vol] 6.1 10*3/uL 2.0-7.7 [facility] Neutrophils/100 WBC (Bld) 63.9 % 47-70 [facility] Potassium [Moles/Vol] 4.0 mmol/L 3.5-5.1 [facility] Sodium [Moles/Vol] 139 mmol/L 136-145 [facility] WBC (Bld) [#/Vol] 9.5 10*3/uL 4.4-11.0 [facility] Blood erythrocytes count (nu mber/volume)Ordered By: Alfredo Phipps on 02-04-2023 RBC (Bld) [#/Vol] 4.81 10*6/uL 4.6-6.2 [facility] Blood hemoglobin measurement (mass/volume)Ordered By: Alfredo Phipps on 02-04-2023 Hemoglobin (Bld) [Mass/Vol] 13.9 g/dL 13.0-16.5 [facility] Blood lymphocytes/100 leukoc ytesOrdered By: Alfredo Phipps on 02-04-2023 Lymphocytes/100 WBC (Bld) 21.4 % 19-41 [facility] Blood monocytes/100 leukocyt esOrdered By: Alfredo Phipps on 02-04-2023 Monocytes/100 WBC (Bld) 9.2 % 0-10 [facility] Blood platelet mean volumeOr dered By: Alfredo Phipps on 02-04-2023 Platelet mean volume (Bld) [Entitic vol] 9.4 fL 6.2-12.0 [facility] Determination of erythrocyte mean corpuscular volume (MCV)Ordered By: Alfredo Phipps on 02-04-2023 MCV (RBC) [Entitic vol] 94.2 fL 80-94 [facility] Hematocrit Auto (Bld) [Volum e fraction]Ordered By: Alfredo Phipps on 02-04-2023 Hematocrit (Bld) [Volume fraction] 45.3 % 40-54 [facility] Laboratory - Chemistry and C hemistry - challengeOrdered By: Alfredo Phipps on 02-04-2023 CO2 [Moles/Vol] 24.0 mmol/L 21.0-32.0 [facility] Urea nitrogen/Creatinine [Mass ratio] 14.6 mg/mg 10-20 [facility] Laboratory - Hematology and Cell countsOrdered By: Alfredo Phipps on 02-04-2023 Erythrocyte distribution width (RBC) [Entitic vol] 45.1 fL 35.1-43.9 [facility] Erythrocyte distribution width (RBC) [Ratio] 13.1 % 11.6-14.6 [facility] Immature granulocytes/100 WBC (Bld) 0.700 % 0.0-0.9 [facility] Comment on above: IG% - Immature Granu locytes (promyelocytes, myelocytes and metamyelocytes) > 1% indicates that a LEFT SHIFT is Present. MCH (RBC) [Entitic mass] 28.9 pg 27.0-32.0 [facility] Nucleated RBC/100 [facility] [[facility] [[facility]/Vol]Or dered By: Alfredo Phipps on 02-04-2023 MCHC (RBC) [Mass/Vol] 30.7 g/dL 32-36 [facility] No Panel InformationOrdered By: Alfredo Phipps on 02-04-2023 Estimated GFR (MDRD) Amer 53 mL/min >60 [facility] Comment on above: GFR Calc Estimated GFR (MDRD) Non-Af Amer 44 mL/min >60 [facility] Comment on above: Non- GFR Calc [place] Level 0.50 mmol/L 0.60-1.20 [facility] Platelets bldOrdered By: Jennifer Phipps on 02-04-2023 Platelets (Bld) [#/Vol] 182 10*3/uL 150-450 [facility] Serum or plasma albumin you urement (mass/volume)Ordered By: Alfredo Phipps on 02-04-2023 Albumin [Mass/Vol] 2.9 g/dL 3.2-5.0 [facility] Serum or plasma calcium you urement (mass/volume)Ordered By: Alfredo Phipps on 02-04-2023 Calcium [Mass/Vol] 8.9 mg/dL 8.5-10.1 [facility] Serum or plasma creatinine m easurement (mass/volume)Ordered By: Alfredo Phipps on 02-04-2023 Creatinine [Mass/Vol] 1.71 mg/dL 0.70-1.30 [facility] Comment on above: The validity of the calculated GFR & GFRAA in patients over 70 years has not been determined. Clinical correlation is essential. Serum or plasma urea nitroge n measurement (mass/volume)Ordered By: Alfredo Phipps on 02-04-2023 Urea nitrogen [Mass/Vol] 25 mg/dL 7-18 [facility] Serum or plasma uric acid me asurement (mass/volume)Ordered By: Adam Ferraro on 01-25-2023 Urate [Mass/Vol] 5.8 mg/dL 3.5-7.2 [facility] Comment on above: The drugs N-Acetylcy steine and Metamizole may falsely depress this assay. Basophil percentageOrdered B y: Alfredo Phipps on 01-19-2023 Cholesterol [Mass/Vol] 160 mg/dL <200 [facility] Comment on above: <200 mg/dL Desirable 200-240 mg/dL Borderline >240 mg/dL High Risk Triglyceride [Mass/Vol] 322 mg/dL <199 [facility] Comment on above: The drugs N-Acetylcy steine and Metamizole may falsely depress this assay.Serum Triglycerides Reference Interval Normal <150 mg/dL Borderline high 150 - 199 mg/dL High 200 - 499 mg/dL Very High > or = 500 mg/dL Serum or plasma cholesterol in HDL measurement (mass/volume)Ordered By: Alfredo Phipps on 01-19-2023 Cholesterol in HDL [Mass/Vol] 38 mg/dL >40 [facility] Comment on above: The drugs N-Acetylcy steine and Metamizole may falsely depress this assay. Reference Range HDL <40 mg/dL Low HDL Cholesterol HDL >or= 60 mg/dL High HDL Cholesterol Serum or plasma cholesterol in VLDL measurement (mass/volume)Ordered By: Alfredo Phipps on 01-19-2023 Cholesterol in VLDL [Mass/Vol] 64 mg/dL 5-40 [facility] Serum or plasma low density lipoprotein (LDL) cholesterol measurement (mass/volume)Ordered By: Alfredo Phipps on 01-19-2023 Cholesterol in LDL [Mass/Vol] 58 mg/dL 0-130 [facility] Absolute lymphocyte countOrd ered By: Alfredo Phipps on 01-07-2023 Lymphocytes Auto (Unsp spec) [#/Vol] 2.02 10*3/uL 0.83-4.51 [facility] Basophil percentageOrdered B y: Alfredo Phipps on 01-07-2023 Basophil percentage 3.6 mg/dL 2.5-4.9 [facility] Basophils/100 WBC (Bld) 1.0 % 0-1 [facility] Chloride [Moles/Vol] 109 mmol/L 98-107 [facility] Eosinophils/100 WBC (Bld) 2.8 % 0-5 [facility] Glucose [Mass/Vol] 236 mg/dL 74-[facility]: Glucose result great er than or equal to 200 mg/dLsuggests DIABETES MELLITUS per A.D.A. criteria. Neutrophils (Bld) [#/Vol] 5.8 10*3/uL 2.0-7.7 [facility] Neutrophils/100 WBC (Bld) 62.2 % 47-70 [facility] Potassium [Moles/Vol] 4.1 mmol/L 3.5-5.1 [facility] Sodium [Moles/Vol] 141 mmol/L 136-145 [facility] WBC (Bld) [#/Vol] 9.3 10*3/uL 4.4-11.0 [facility] Blood erythrocytes count (nu mber/volume)Ordered By: Alfredo Phipps on 01-07-2023 RBC (Bld) [#/Vol] 4.67 10*6/uL 4.6-6.2 [facility] Blood hemoglobin measurement (mass/volume)Ordered By: Alfredo Phipps on 01-07-2023 Hemoglobin (Bld) [Mass/Vol] 13.5 g/dL 13.0-16.5 [facility] Blood lymphocytes/100 leukoc ytesOrdered By: Alfredo Phipps on 01-07-2023 Lymphocytes/100 WBC (Bld) 21.8 % 19-41 [facility] Blood monocytes/100 leukocyt esOrdered By: Alfredo Phipps on 01-07-2023 Monocytes/100 WBC (Bld) 11.6 % 0-10 [facility] Blood platelet mean volumeOr dered By: Alfredo Phipps on 01-07-2023 Platelet mean volume (Bld) [Entitic vol] 9.8 fL 6.2-12.0 [facility] Determination of erythrocyte mean corpuscular volume (MCV)Ordered By: Alfredo Phipps on 01-07-2023 MCV (RBC) [Entitic vol] 89.7 fL 80-94 [facility] Hematocrit Auto (Bld) [Volum e fraction]Ordered By: Alfredo Phipps on 01-07-2023 Hematocrit (Bld) [Volume fraction] 41.9 % 40-54 [facility] Laboratory - Chemistry and C hemistry - challengeOrdered By: Alfredo Phipps on 01-07-2023 CO2 [Moles/Vol] 26.0 mmol/L 21.0-32.0 [facility] Urea nitrogen/Creatinine [Mass ratio] 13.4 mg/mg 10-20 [facility] Laboratory - Hematology and Cell countsOrdered By: Alfredo Phipps on 01-07-2023 Erythrocyte distribution width (RBC) [Entitic vol] 42.5 fL 35.1-43.9 [facility] Erythrocyte distribution width (RBC) [Ratio] 13.1 % 11.6-14.6 [facility] Immature granulocytes/100 WBC (Bld) 0.600 % 0.0-0.9 [facility] Comment on above: IG% - Immature Granu locytes (promyelocytes, myelocytes and metamyelocytes) > 1% indicates that a LEFT SHIFT is Present. MCH (RBC) [Entitic mass] 28.9 pg 27.0-32.0 [facility] Nucleated RBC/100 WBC (Bld) [Ratio] 0 % 0-5 [facility] MCHC Auto (RBC) [Mass/Vol]Or dered By: Alfredo Phipps on 01-07-2023 MCHC (RBC) [Mass/Vol] 32.2 g/dL 32-36 [facility] No Panel InformationOrdered By: Alfredo Phipps on 01-07-2023 Estimated GFR (MDRD) Amer 48 mL/min >60 [facility] Comment on above: GFR Calc Estimated GFR (MDRD) Non-Af Amer 40 mL/min >60 [facility] Comment on above: Non- GFR Calc [place] Level 0.30 mmol/L 0.60-1.20 [facility] Platelets bldOrdered By: Jennifer Phipps on 01-07-2023 Platelets (Bld) [#/Vol] 203 10*3/uL 150-450 [facility] Serum or plasma albumin you urement (mass/volume)Ordered By: Alfredo Phipps on 01-07-2023 Albumin [Mass/Vol] 2.9 g/dL 3.2-5.0 [facility] Serum or plasma calcium you urement (mass/volume)Ordered By: Alfredo Phipps on 01-07-2023 Calcium [Mass/Vol] 9.0 mg/dL 8.5-10.1 [facility] Serum or plasma creatinine m easurement (mass/volume)Ordered By: Alfredo Phipps on 01-07-2023 Creatinine [Mass/Vol] 1.86 mg/dL 0.70-1.30 [facility] Comment on above: The validity of the calculated GFR & GFRAA in patients over 70 years has not been determined. Clinical correlation is essential. Serum or plasma urea nitroge n measurement (mass/volume)Ordered By: Alfredo Phipps on 01-07-2023 Urea nitrogen [Mass/Vol] 25 mg/dL 7-18 [facility] Serum or plasma uric acid me asurement (mass/volume)Ordered By: Adam Ferraro on 12-28-2022 Urate [Mass/Vol] 5.9 mg/dL 3.5-7.2 [facility] Comment on above: The drugs N-Acetylcy steine and Metamizole may falsely depress this assay. Urine creatinine measurement (mass/volume)Ordered By: Adam Ferraro on 12-15-2022 Creatinine (U) [Mass/Vol] 141.00 mg/dL NO RANGE EST. [facility] Urine protein measurement (m ass/volume)Ordered By: Adam Ferraro on 12-15-2022 Protein (U) [Mass/Vol] 29.9 mg/dL 0.0-11.8 [facility] Urine protein/creatinine mas s ratioOrdered By: Adam Ferraro on 12-15-2022 Protein/Creatinine (U) [Mass ratio] 212 mg/g CRE 0-200 [facility] Absolute lymphocyte countOrd ered By: Adam Ferraro on 12-10-2022 Lymphocytes Auto (Unsp spec) [#/Vol] 1.96 10*3/uL 0.83-4.51 [facility] Basophil percentageOrdered B y: Adam Ferraro on 12-10-2022 Basophil percentage 4.0 mg/dL 2.5-4.9 [facility] Basophils/100 WBC (Bld) 1.2 % 0-1 [facility] Chloride [Moles/Vol] 106 mmol/L 98-107 [facility] Eosinophils/100 WBC (Bld) 3.6 % 0-5 [facility] Glucose [Mass/Vol] 155 mg/dL 74-106 [facility] Comment on above: Fasting Glucose resu lt greater than or equal to 126 mg/dL suggests DIABETES MELLITUS per A.D.A. criteria. Neutrophils (Bld) [#/Vol] 4.9 10*3/uL 2.0-7.7 [facility] Neutrophils/100 WBC (Bld) 60.1 % 47-70 [facility] Potassium [Moles/Vol] 4.1 mmol/L 3.5-5.1 [facility] Sodium [Moles/Vol] 140 mmol/L 136-145 [facility] WBC (Bld) [#/Vol] 8.1 10*3/uL 4.4-11.0 [facility] Blood erythrocytes count (nu mber/volume)Ordered By: Adam Ferraro on 12-10-2022 RBC (Bld) [#/Vol] 4.96 10*6/uL 4.6-6.2 [facility] Blood hemoglobin measurement (mass/volume)Ordered By: Adam Ferraro on 12-10-2022 Hemoglobin (Bld) [Mass/Vol] 14.4 g/dL 13.0-16.5 [facility] Blood lymphocytes/100 leukoc ytesOrdered By: Adam Ferraro on 12-10-2022 Lymphocytes/100 WBC (Bld) 24.1 % 19-41 [facility] Blood monocytes/100 leukocyt esOrdered By: Adam Ferraro on 12-10-2022 Monocytes/100 WBC (Bld) 10.6 % 0-10 [facility] Blood platelet mean volumeOr dered By: Adam Ferraro on 12-10-2022 Platelet mean volume (Bld) [Entitic vol] 9.8 fL 6.2-12.0 [facility] Determination of erythrocyte mean corpuscular volume (MCV)Ordered By: Adam Ferraro on 12-10-2022 MCV (RBC) [Entitic vol] 89.5 fL 80-94 [facility] Hematocrit Auto (Bld) [Volum e fraction]Ordered By: Adam Ferraro on 12-10-2022 Hematocrit (Bld) [Volume fraction] 44.4 % 40-54 [facility] Laboratory - Chemistry and C hemistry - challengeOrdered By: Adam Ferraro on 12-10-2022 CO2 [Moles/Vol] 26.0 mmol/L 21.0-32.0 [facility] Urea nitrogen/Creatinine [Mass ratio] 10.1 mg/mg 10-20 [facility] Laboratory - Hematology and Cell countsOrdered By: Adam Ferraro on 12-10-2022 Erythrocyte distribution width (RBC) [Entitic vol] 42.6 fL 35.1-43.9 [facility] Erythrocyte distribution width (RBC) [Ratio] 13.0 % 11.6-14.6 [facility] Immature granulocytes/100 WBC (Bld) 0.400 % 0.0-0.9 [facility] Comment on above: IG% - Immature Granu locytes (promyelocytes, myelocytes and metamyelocytes) > 1% indicates that a LEFT SHIFT is Present. MCH (RBC) [Entitic mass] 29.0 pg 27.0-32.0 [facility] Nucleated RBC/100 WBC (Bld) [Ratio] 0 % 0-5 [facility] MCHC Auto (RBC) [Mass/Vol]Or dered By: Adam Ferraro on 12-10-2022 MCHC (RBC) [Mass/Vol] 32.4 g/dL 32-36 [facility] No Panel InformationOrdered By: Adam Ferraro on 12-10-2022 Estimated GFR (MDRD) Amer 50 mL/min >60 [facility] Comment on above: GFR Calc Estimated GFR (MDRD) Non-Af Amer 41 mL/min >60 [facility] Comment on above: Non- GFR Calc [place] Level 0.50 mmol/L 0.60-1.20 [facility] Platelets bldOrdered By: Benoit Ferraro on 12-10-2022 Platelets (Bld) [#/Vol] 213 10*3/uL 150-450 [facility] Serum or plasma albumin you urement (mass/volume)Ordered By: Adam Ferraro on 12-10-2022 Albumin [Mass/Vol] 2.8 g/dL 3.2-5.0 [facility] Serum or plasma calcium you urement (mass/volume)Ordered By: Adam Ferraro on 12-10-2022 Calcium [Mass/Vol] 8.8 mg/dL 8.5-10.1 [facility] Serum or plasma creatinine m easurement (mass/volume)Ordered By: Adam Ferraro on 12-10-2022 Creatinine [Mass/Vol] 1.79 mg/dL 0.70-1.30 [facility] Comment on above: The validity of the calculated GFR & GFRAA in patients over 70 years has not been determined. Clinical correlation is essential. Serum or plasma urea nitroge n measurement (mass/volume)Ordered By: Adam Ferraro on 12-10-2022 Urea nitrogen [Mass/Vol] 18 mg/dL 7-18 [facility] Urine creatinine measurement (mass/volume)Ordered By: Adam Ferraro on 11-17-2022 Creatinine (U) [Mass/Vol] 74.70 mg/dL NO RANGE EST. [facility] Urine protein measurement (m ass/volume)Ordered By: Adam Ferraro on 11-17-2022 Protein (U) [Mass/Vol] 16.5 mg/dL 0.0-11.8 [facility] Urine protein/creatinine mas s ratioOrdered By: Adam Ferraro on 11-17-2022 Protein/Creatinine (U) [Mass ratio] 221 mg/g CRE 0-200 [facility] Absolute lymphocyte countOrd ered By: Alfredo Phipps on 11-12-2022 Lymphocytes Auto (Unsp spec) [#/Vol] 2.11 10*3/uL 0.83-4.51 [facility] Basophil percentageOrdered B y: Alfredo Phipps on 11-12-2022 Basophil percentage 3.3 mg/dL 2.5-4.9 [facility] Basophils/100 WBC (Bld) 0.7 % 0-1 [facility] Chloride [Moles/Vol] 106 mmol/L 98-107 [facility] Eosinophils/100 WBC (Bld) 2.4 % 0-5 [facility] Glucose [Mass/Vol] 169 mg/dL 74-106 [facility] Comment on above: Fasting Glucose resu lt greater than or equal to 126 mg/dL suggests DIABETES MELLITUS per A.D.A. criteria. Neutrophils (Bld) [#/Vol] 6.1 10*3/uL 2.0-7.7 [facility] Neutrophils/100 WBC (Bld) 63.5 % 47-70 [facility] Potassium [Moles/Vol] 3.5 mmol/L 3.5-5.1 [facility] Sodium [Moles/Vol] 138 mmol/L 136-145 [facility] WBC (Bld) [#/Vol] 9.6 10*3/uL 4.4-11.0 [facility] Blood erythrocytes count (nu mber/volume)Ordered By: Alfredo Phipps on 11-12-2022 RBC (Bld) [#/Vol] 4.67 10*6/uL 4.6-6.2 [facility] Blood hemoglobin measurement (mass/volume)Ordered By: Alfredo Phipps on 11-12-2022 Hemoglobin (Bld) [Mass/Vol] 13.9 g/dL 13.0-16.5 [facility] Blood lymphocytes/100 leukoc ytesOrdered By: Alfredo Phipps on 11-12-2022 Lymphocytes/100 WBC (Bld) 21.9 % 19-41 [facility] Blood monocytes/100 leukocyt esOrdered By: Alfredo Phipps on 11-12-2022 Monocytes/100 WBC (Bld) 10.8 % 0-10 [facility] Blood platelet mean volumeOr dered By: Alfredo Phipps on 11-12-2022 Platelet mean volume (Bld) [Entitic vol] 9.8 fL 6.2-12.0 [facility] Determination of erythrocyte mean corpuscular volume (MCV)Ordered By: Alfredo Phipps on 11-12-2022 MCV (RBC) [Entitic vol] 89.1 fL 80-94 [facility] Hematocrit Auto (Bld) [Volum e fraction]Ordered By: Alfredo Phipps on 11-12-2022 Hematocrit (Bld) [Volume fraction] 41.6 % 40-54 [facility] Laboratory - Chemistry and C hemistry - challengeOrdered By: Alfredo Phipps on 11-12-2022 CO2 [Moles/Vol] 25.0 mmol/L 21.0-32.0 [facility] Urea nitrogen/Creatinine [Mass ratio] 11.4 mg/mg 10-20 [facility] Laboratory - Hematology and Cell countsOrdered By: Alfredo Phipps on 11-12-2022 Erythrocyte distribution width (RBC) [Entitic vol] 43.2 fL 35.1-43.9 [facility] Erythrocyte distribution width (RBC) [Ratio] 13.2 % 11.6-14.6 [facility] Immature granulocytes/100 WBC (Bld) 0.700 % 0.0-0.9 [facility] Comment on above: IG% - Immature Granu locytes (promyelocytes, myelocytes and metamyelocytes) > 1% indicates that a LEFT SHIFT is Present. MCH (RBC) [Entitic mass] 29.8 pg 27.0-32.0 [facility] Nucleated RBC/100 WBC (Bld) [Ratio] 0 % 0-5 [facility] MCHC Auto (RBC) [Mass/Vol]Or dered By: Alfredo Phipps on 11-12-2022 MCHC (RBC) [Mass/Vol] 33.4 g/dL 32-36 [facility] No Panel InformationOrdered By: Alfredo Phipps on 11-12-2022 Estimated GFR (MDRD) Amer 48 mL/min >60 [facility] Comment on above: GFR Calc Estimated GFR (MDRD) Non-Af Amer 40 mL/min >60 [facility] Comment on above: Non- GFR Calc [place] Level 0.40 mmol/L 0.60-1.20 [facility] Platelets bldOrdered By: Jennifer Phipps on 11-12-2022 Platelets (Bld) [#/Vol] 200 10*3/uL 150-450 [facility] Serum or plasma albumin you urement (mass/volume)Ordered By: Alfredo Phipps on 11-12-2022 Albumin [Mass/Vol] 2.9 g/dL 3.2-5.0 [facility] Serum or plasma calcium you urement (mass/volume)Ordered By: Alfredo Phipps on 11-12-2022 Calcium [Mass/Vol] 8.7 mg/dL 8.5-10.1 [facility] Serum or plasma creatinine m easurement (mass/volume)Ordered By: Alfredo Phipps on 11-12-2022 Creatinine [Mass/Vol] 1.85 mg/dL 0.70-1.30 [facility] Comment on above: The validity of the calculated GFR & GFRAA in patients over 70 years has not been determined. Clinical correlation is essential. Serum or plasma urea nitroge n measurement (mass/volume)Ordered By: Alfredo Phipps on 11-12-2022 Urea nitrogen [Mass/Vol] 21 mg/dL 7-18 [facility] Serum or plasma uric acid me asurement (mass/volume)Ordered By: Alfredo Phipps on 10-27-2022 Urate [Mass/Vol] 6.4 mg/dL 3.5-7.2 [facility] Comment on above: The drugs N-Acetylcy steine and Metamizole may falsely depress this assay. Absolute lymphocyte countOrd ered By: Alfredo Phipps on 10-15-2022 Lymphocytes Auto (Unsp spec) [#/Vol] 2.30 10*3/uL 0.83-4.51 [facility] Basophil percentageOrdered B y: Alfredo Phipps on 10-15-2022 Basophil percentage 4.2 mg/dL 2.5-4.9 [facility] Basophils/100 WBC (Bld) 1.0 % 0-1 [facility] Chloride [Moles/Vol] 108 mmol/L 98-107 [facility] Eosinophils/100 WBC (Bld) 3.2 % 0-5 [facility] Glucose [Mass/Vol] 168 mg/dL 74-106 [facility] Comment on above: Fasting Glucose resu lt greater than or equal to 126 mg/dL suggests DIABETES MELLITUS per A.D.A. criteria. Neutrophils (Bld) [#/Vol] 4.8 10*3/uL 2.0-7.7 [facility] Neutrophils/100 WBC (Bld) 58.3 % 47-70 [facility] Potassium [Moles/Vol] 4.1 mmol/L 3.5-5.1 [facility] Comment on above: Slight Hemolysis, Re sult may be falsely increased. Sodium [Moles/Vol] 140 mmol/L 136-145 [facility] WBC (Bld) [#/Vol] 8.3 10*3/uL 4.4-11.0 [facility] Blood erythrocytes count (nu mber/volume)Ordered By: Alfredo Phipps on 10-15-2022 RBC (Bld) [#/Vol] 4.81 10*6/uL 4.6-6.2 [facility] Blood hemoglobin measurement (mass/volume)Ordered By: Alfredo Phipps on 10-15-2022 Hemoglobin (Bld) [Mass/Vol] 13.9 g/dL 13.0-16.5 [facility] Blood lymphocytes/100 leukoc ytesOrdered By: Alfredo Phipps on 10-15-2022 Lymphocytes/100 WBC (Bld) 27.6 % 19-41 [facility] Blood monocytes/100 leukocyt esOrdered By: Alfredo Phipps on 10-15-2022 Monocytes/100 WBC (Bld) 9.1 % 0-10 [facility] Blood platelet mean volumeOr dered By: Alfredo Phipps on 10-15-2022 Platelet mean volume (Bld) [Entitic vol] 10.1 fL 6.2-12.0 [facility] Determination of erythrocyte mean corpuscular volume (MCV)Ordered By: Alfredo Phipps on 10-15-2022 MCV (RBC) [Entitic vol] 89.4 fL 80-94 [facility] Hematocrit Auto (Bld) [Volum e fraction]Ordered By: Alfredo Phipps on 10-15-2022 Hematocrit (Bld) [Volume fraction] 43.0 % 40-54 [facility] Laboratory - Chemistry and C hemistry - challengeOrdered By: Alfredo Phipps on 10-15-2022 CO2 [Moles/Vol] 28.0 mmol/L 21.0-32.0 [facility] Urea nitrogen/Creatinine [Mass ratio] 11.3 mg/mg 10-20 [facility] Laboratory - Hematology and Cell countsOrdered By: Alfredo Phipps on 10-15-2022 Erythrocyte distribution width (RBC) [Entitic vol] 42.9 fL 35.1-43.9 [facility] Erythrocyte distribution width (RBC) [Ratio] 13.2 % 11.6-14.6 [facility] Immature granulocytes/100 WBC (Bld) 0.800 % 0.0-0.9 [facility] Comment on above: IG% - Immature Granu locytes (promyelocytes, myelocytes and metamyelocytes) > 1% indicates that a LEFT SHIFT is Present. MCH (RBC) [Entitic mass] 28.9 pg 27.0-32.0 [facility] Nucleated RBC/100 [facility] [[facility]/Vol]Or dered By: Alfredo Phipps on 10-15-2022 MCHC (RBC) [Mass/Vol] 32.3 g/dL 32-36 [facility] No Panel InformationOrdered By: Alfredo Phipps on 10-15-2022 Estimated GFR (MDRD) Amer 46 mL/min >60 [facility] Comment on above: GFR Calc Estimated GFR (MDRD) Non-Af Amer 38 mL/min >60 [facility] Comment on above: Non- GFR Calc [place] Level 0.50 mmol/L 0.60-1.20 [facility] Platelets bldOrdered By: Jennifer Phipps on 10-15-2022 Platelets (Bld) [#/Vol] 200 10*3/uL 150-450 [facility] Serum or plasma albumin you urement (mass/volume)Ordered By: Alfredo Phipps on 10-15-2022 Albumin [Mass/Vol] 2.9 g/dL 3.2-5.0 [facility] Serum or plasma calcium you urement (mass/volume)Ordered By: Alfredo Phipps on 10-15-2022 Calcium [Mass/Vol] 9.1 mg/dL 8.5-10.1 [facility] Serum or plasma creatinine m easurement (mass/volume)Ordered By: Alfredo Phipps on 10-15-2022 Creatinine [Mass/Vol] 1.94 mg/dL 0.70-1.30 [facility] Comment on above: The validity of the calculated GFR & GFRAA in patients over 70 years has not been determined. Clinical correlation is essential. Serum or plasma urea nitroge n measurement (mass/volume)Ordered By: Alfredo Phipps on 10-15-2022 Urea nitrogen [Mass/Vol] 22 mg/dL 7-18 [facility] Serum or plasma uric acid me asurement (mass/volume)Ordered By: Alfredo Phipps on 09-27-2022 Urate [Mass/Vol] 7.0 mg/dL 3.5-7.2 [facility] Comment on above: The drugs N-Acetylcy steine and Metamizole may falsely depress this assay. Absolute lymphocyte countOrd ered By: Adam Ferraro on 09-17-2022 Lymphocytes Auto (Unsp spec) [#/Vol] 2.69 10*3/uL 0.83-4.51 [facility] Basophil percentageOrdered B y: Adam Ferraro on 09-17-2022 Basophil percentage 3.8 mg/dL 2.5-4.9 [facility] Basophils/100 WBC (Bld) 0.9 % 0-1 [facility] Chloride [Moles/Vol] 105 mmol/L 98-107 [facility] Eosinophils/100 WBC (Bld) 3.2 % 0-5 [facility] Glucose [Mass/Vol] 141 mg/dL 74-106 [facility] Comment on above: Fasting Glucose resu lt greater than or equal to 126 mg/dL suggests DIABETES MELLITUS per A.D.A. criteria. Neutrophils (Bld) [#/Vol] 5.1 10*3/uL 2.0-7.7 [facility] Neutrophils/100 WBC (Bld) 56.1 % 47-70 [facility] Potassium [Moles/Vol] 3.8 mmol/L 3.5-5.1 [facility] Sodium [Moles/Vol] 139 mmol/L 136-145 [facility] WBC (Bld) [#/Vol] 9.0 10*3/uL 4.4-11.0 [facility] Blood erythrocytes count (nu mber/volume)Ordered By: Adam Ferraro on 09-17-2022 RBC (Bld) [#/Vol] 4.99 10*6/uL 4.6-6.2 [facility] Blood hemoglobin measurement (mass/volume)Ordered By: Adam Ferraro on 09-17-2022 Hemoglobin (Bld) [Mass/Vol] 14.8 g/dL 13.0-16.5 [facility] Blood lymphocytes/100 leukoc ytesOrdered By: Adam Ferraro on 09-17-2022 Lymphocytes/100 WBC (Bld) 29.8 % 19-41 [facility] Blood monocytes/100 leukocyt esOrdered By: Adam Ferraro on 09-17-2022 Monocytes/100 WBC (Bld) 9.4 % 0-10 [facility] Blood platelet mean volumeOr dered By: Adam Ferraro on 09-17-2022 Platelet mean volume (Bld) [Entitic vol] 10.2 fL 6.2-12.0 [facility] Determination of erythrocyte mean corpuscular volume (MCV)Ordered By: Adam Ferraro on 09-17-2022 MCV (RBC) [Entitic vol] 88.6 fL 80-94 [facility] Hematocrit Auto (Bld) [Volum e fraction]Ordered By: Adam Ferraro on 09-17-2022 Hematocrit (Bld) [Volume fraction] 44.2 % 40-54 [facility] Laboratory - Chemistry and C hemistry - challengeOrdered By: Adam Ferraro on 09-17-2022 CO2 [Moles/Vol] 26.0 mmol/L 21.0-32.0 [facility] Urea nitrogen/Creatinine [Mass ratio] 11.4 mg/mg 10-20 [facility] Laboratory - Hematology and Cell countsOrdered By: Adam Ferraro on 09-17-2022 Erythrocyte distribution width (RBC) [Entitic vol] 42.8 fL 35.1-43.9 [facility] Erythrocyte distribution width (RBC) [Ratio] 13.2 % 11.6-14.6 [facility] Immature granulocytes/100 WBC (Bld) 0.600 % 0.0-0.9 [facility] Comment on above: IG% - Immature Granu locytes (promyelocytes, myelocytes and metamyelocytes) > 1% indicates that a LEFT SHIFT is Present. MCH (RBC) [Entitic mass] 29.7 pg 27.0-32.0 [facility] Nucleated RBC/100 WBC (Bld) [Ratio] 0 % 0-5 [facility] MCHC Auto (RBC) [Mass/Vol]Or dered By: Adam Ferraro on 09-17-2022 MCHC (RBC) [Mass/Vol] 33.5 g/dL 32-36 [facility] No Panel InformationOrdered By: Adam Ferraro on 09-17-2022 [place] Level 0.50 mmol/L 0.60-1.20 [facility] Estimated GFR (MDRD) Amer 51 mL/min >60 [facility] Comment on above: GFR Calc Estimated GFR (MDRD) Non-Af Amer 42 mL/min >60 [facility] Comment on above: Non- GFR Calc Platelets bldOrdered By: Benoit Ferraro on 09-17-2022 Platelets (Bld) [#/Vol] 178 10*3/uL 150-450 [facility] Serum or plasma albumin you urement (mass/volume)Ordered By: Adam Ferraro on 09-17-2022 Albumin [Mass/Vol] 3.0 g/dL 3.2-5.0 [facility] Serum or plasma calcium you urement (mass/volume)Ordered By: Adam Ferraro on 09-17-2022 Calcium [Mass/Vol] 9.0 mg/dL 8.5-10.1 [facility] Serum or plasma creatinine m easurement (mass/volume)Ordered By: Adam Ferraro on 09-17-2022 Creatinine [Mass/Vol] 1.76 mg/dL 0.70-1.30 [facility] Comment on above: The validity of the calculated GFR & GFRAA in patients over 70 years has not been determined. Clinical correlation is essential. Serum or plasma urea nitroge n measurement (mass/volume)Ordered By: Adam Ferraro on 09-17-2022 Urea nitrogen [Mass/Vol] 20 mg/dL 7-18 [facility] Urine creatinine measurement (mass/volume)Ordered By: Adam Ferraro on 09-17-2022 Creatinine (U) [Mass/Vol] 128.00 mg/dL NO RANGE EST. [facility] Urine protein measurement (m ass/volume)Ordered By: Adam Ferraro on 09-17-2022 Protein (U) [Mass/Vol] 20.9 mg/dL 0.0-11.8 [facility] Urine protein/creatinine mas s ratioOrdered By: Adam Ferraro on 09-17-2022 Protein/Creatinine (U) [Mass ratio] 163 mg/g CRE 0-200 [facility] Serum or plasma uric acid me asurement (mass/volume)Ordered By: Adam Ferraro on 08-27-2022 Urate [Mass/Vol] 6.4 mg/dL 3.5-7.2 [facility] Comment on above: The drugs N-Acetylcy steine and Metamizole may falsely depress this assay. No Panel InformationOrdered By: Adam Ferraro on 08-23-2022 [place] Level 0.40 mmol/L 0.60-1.20 [facility] Culture, urineOrdered By: Chan Fiore on 08-15-2022 Bacteria identified Cx Nom (U) Streptococcus mitis [facility] Absolute lymphocyte countOrd ered By: Alfredo Phipps on 08-12-2022 Lymphocytes Auto (Unsp spec) [#/Vol] 2.09 10*3/uL 0.83-4.51 [facility] Basophil percentageOrdered B y: Alfredo Phipps on 08-12-2022 Basophil percentage 3.6 mg/dL 2.5-4.9 [facility] Basophils/100 WBC (Bld) 0.9 % 0-1 [facility] Chloride [Moles/Vol] 107 mmol/L 98-107 [facility] Eosinophils/100 WBC (Bld) 2.8 % 0-5 [facility] Glucose [Mass/Vol] 151 mg/dL 74-106 [facility] Comment on above: Fasting Glucose resu lt greater than or equal to 126 mg/dL suggests DIABETES MELLITUS per A.D.A. criteria. Neutrophils (Bld) [#/Vol] 5.5 10*3/uL 2.0-7.7 [facility] Neutrophils/100 WBC (Bld) 63.4 % 47-70 [facility] Potassium [Moles/Vol] 4.0 mmol/L 3.5-5.1 [facility] Sodium [Moles/Vol] 140 mmol/L 136-145 [facility] WBC (Bld) [#/Vol] 8.7 10*3/uL 4.4-11.0 [facility] Basophil percentage 10-25 SEEN /hpf 0-5 [facility] Bilirubin Test strip Ql (U)O rdered By: Alfredo Phipps on 08-12-2022 Bilirubin Ql (U) Negative Negative [facility] Blood erythrocytes count (nu mber/volume)Ordered By: Alfredo Phipps on 08-12-2022 RBC (Bld) [#/Vol] 4.92 10*6/uL 4.6-6.2 [facility] Blood hemoglobin measurement (mass/volume)Ordered By: Alfredo Phipps on 08-12-2022 Hemoglobin (Bld) [Mass/Vol] 14.5 g/dL 13.0-16.5 [facility] Blood lymphocytes/100 leukoc ytesOrdered By: Alfredo Phipps on 08-12-2022 Lymphocytes/100 WBC (Bld) 24.1 % 19-41 [facility] Blood monocytes/100 leukocyt esOrdered By: Alfredo Phipps on 08-12-2022 Monocytes/100 WBC (Bld) 8.3 % 0-10 [facility] Blood platelet mean volumeOr dered By: Alfredo Phipps on 08-12-2022 Platelet mean volume (Bld) [Entitic vol] 9.8 fL 6.2-12.0 [facility] Determination of erythrocyte mean corpuscular volume (MCV)Ordered By: Alfredo Phipps on 08-12-2022 MCV (RBC) [Entitic vol] 91.1 fL 80-94 [facility] [facility] Hematocrit Auto (Bld) [Volum e fraction]Ordered By: Alfredo Phipps on 08-12-2022 Hematocrit (Bld) [Volume fraction] 44.8 % 40-54 [facility] Ketones Test strip Ql (U)Ord ered By: Alfredo Phipps on 08-12-2022 Ketones Ql (U) Negative Negative [facility] Laboratory - Chemistry and C hemistry - challengeOrdered By: Alfredo Phipps on 08-12-2022 CO2 [Moles/Vol] 25.0 mmol/L 21.0-32.0 [facility] Urea nitrogen/Creatinine [Mass ratio] 14.9 mg/mg 10-20 [facility] Laboratory - Hematology and Cell countsOrdered By: Alfredo Phipps on 08-12-2022 Erythrocyte distribution width (RBC) [Entitic vol] 43.3 fL 35.1-43.9 [facility] Erythrocyte distribution width (RBC) [Ratio] 12.9 % 11.6-14.6 [facility] Immature granulocytes/100 WBC (Bld) 0.500 % 0.0-0.9 [facility] Comment on above: IG% - Immature Granu locytes (promyelocytes, myelocytes and metamyelocytes) > 1% indicates that a LEFT SHIFT is Present. MCH (RBC) [Entitic mass] 29.5 pg 27.0-32.0 [facility] Nucleated RBC/100 WBC (Bld) [Ratio] 0 % 0-5 [facility] MCHC Auto (RBC) [Mass/Vol]Or dered By: Alfredo Phipps on 08-12-2022 MCHC (RBC) [Mass/Vol] 32.4 g/dL 32-36 [facility] Mucus LM Ql (Urine sed)Order ed By: Alfredo Phipps on 08-12-2022 Mucus Ql (Urine sed) Not Reportable [facility] Nitrite Test strip Ql (U)Ord ered By: Alfredo Phipps on 08-12-2022 Nitrite Ql (U) Negative Negative [facility] No Panel InformationOrdered By: Alfredo Phipps on 08-12-2022 Estimated GFR (MDRD) Amer 54 mL/min >60 [facility] Comment on above: GFR Calc Estimated GFR (MDRD) Non-Af Amer 45 mL/min >60 [facility] Comment on above: Non- GFR Calc Platelets bldOrdered By: Pet shonda Phipps on 08-12-2022 Platelets (Bld) [#/Vol] 238 10*3/uL 150-450 [facility] Protein Test strip Ql (U)Ord ered By: Alfredo Phipps on 08-12-2022 Protein Ql (U) 15 mg/dl Negative [facility] Serum or plasma albumin you urement (mass/volume)Ordered By: Alfredo Phipps on 08-12-2022 Albumin [Mass/Vol] 2.9 g/dL 3.2-5.0 [facility] Serum or plasma calcium you urement (mass/volume)Ordered By: Alfredo Phipps on 08-12-2022 Calcium [Mass/Vol] 9.2 mg/dL 8.5-10.1 [facility] Serum or plasma creatinine m easurement (mass/volume)Ordered By: Alfredo Phipps on 08-12-2022 Creatinine [Mass/Vol] 1.68 mg/dL 0.70-1.30 [facility] Comment on above: The validity of the calculated GFR & GFRAA in patients over 70 years has not been determined. Clinical correlation is essential. Serum or plasma urea nitroge n measurement (mass/volume)Ordered By: Alfredo Phipps on 08-12-2022 Urea nitrogen [Mass/Vol] 25 mg/dL 7-18 [facility] Squamous epithelial cells de tection in urine sediment by light microscopyOrdered By: Alfredo Phipps on 08-12-2022 Epithelial cells.squamous LM Ql (Urine sed) 0-5 SEEN /hpf 0-5 [facility] Urine blood detectionOrdered By: Alfredo Phipps on 08-12-2022 RBC Ql (U) Negative Negative [facility] RBC Ql (U) 0 SEEN /hpf 0-5 [facility] Urine clarityOrdered By: Jennifer Phipps on 08-12-2022 Clarity (U) Clear Clear [facility] Urine color determinationOrd ered By: Alfredo Phipps on 08-12-2022 Color (U) Yellow Yellow [facility] Urine creatinine measurement (mass/volume)Ordered By: Alfredo Phipps on 08-12-2022 Creatinine (U) [Mass/Vol] 102.00 mg/dL NO RANGE EST. [facility] Urine glucose detectionOrder ed By: Alfredo Phipps on 08-12-2022 Glucose Ql (U) Normal mg/dl Normal [facility] Urine leukocyte esterase det ection by dipstickOrdered By: Alfredo Phipps on 08-12-2022 Leukocyte esterase Test strip Ql (U) 500 /ul Negative [facility] Urine pHOrdered By: Alfredo saha on 08-12-2022 pH (U) 6.0 [pH] 5.0 - 8.0 [facility] Urine protein measurement (m ass/volume)Ordered By: Alfredo Phipps on 08-12-2022 Protein (U) [Mass/Vol] 19.9 mg/dL 0.0-11.8 [facility] Urine protein/creatinine mas s ratioOrdered By: Alfredo Phipps on 08-12-2022 Protein/Creatinine (U) [Mass ratio] 195 mg/g CRE 0-200 [facility] Urine sediment bacteria coun t by microscopy (number/high power field)Ordered By: Alfredo Phipps on 08-12-2022 Bacteria LM.HPF (Urine sed) [#/Area] RARE /hpf None Seen [facility] Urine specific gravity measu rementOrdered By: Alfredo Phipps on 08-12-2022 Specific gravity (U) [Rel density] 1.015 1.002-1.03 0 [facility] Urobilinogen Auto test strip Ql (U)Ordered By: Alfredo Phipps on 08-12-2022 Urobilinogen Ql (U) Normal mg/dl Normal [facility] No Panel Informationon 07-28 [place] Level 0.60 mmol/L 0.60-1.20 [facility] Work Phone: Serum or plasma uric acid me asurement (mass/volume)on 07-28-2022 Urate [Mass/Vol] 6.3 mg/dL 3.5-7.2 [facility] Work Phone: Comment on above: The drugs N-Acetylcy steine and Metamizole may falsely depress this assay. URINALYSIS, REFLEX MICROSCOP ICon 07-27-2022 Bilirubin Ql (U) Negative Negative [facility] Clarity (Unsp spec) Clear Clear [facility] Color (U) Colorless Yellow [facility] Glucose Test strip (U) [Mass/Vol] Negative Negative [facility] Hemoglobin Ql (U) Negative Negative [facility] Ketones Ql (U) Negative Negative [facility] Leukocyte esterase Test strip Ql (U) Negative Negative [facility] Nitrite Ql (U) Negative Negative [facility] pH (U) 6.5 [pH] 5.0 - 8.0 [facility] Protein (U) [Mass/Vol] Negative Negative [facility] Specific gravity (U) [Rel density] 1.009 1.005 - 1.030 [facility] Urobilinogen Ql (U) Negative Negative [facility] Absolute lymphocyte counton 07-15-2022 Lymphocytes Auto (Unsp spec) [#/Vol] 1.93 10*3/uL 0.83-4.51 [facility] Work Phone: Basophil percentageon 2021 Basophil percentage 3.9 mg/dL 2.5-4.9 [facility] Work Phone: Basophils/100 WBC (Bld) 1.3 % 0-1 [facility] Work Phone: Chloride [Moles/Vol] 107 mmol/L 98-107 [facility] Work Phone: Eosinophils/100 WBC (Bld) 1.7 % 0-5 [facility] Work Phone: Glucose [Mass/Vol] 126 mg/dL 74-106 [facility] Work Phone: Comment on above: Fasting Glucose resu lt greater than or equal to 126 mg/dL suggests DIABETES MELLITUS per A.D.A. criteria. Neutrophils (Bld) [#/Vol] 6.1 10*3/uL 2.0-7.7 [facility] Work Phone: Neutrophils/100 WBC (Bld) 66.5 % 47-70 [facility] Work Phone: Potassium [Moles/Vol] 4.4 mmol/L 3.5-5.1 [facility] Work Phone: Sodium [Moles/Vol] 139 mmol/L 136-145 [facility] Work Phone: WBC (Bld) [#/Vol] 9.2 10*3/uL 4.4-11.0 [facility] Work Phone: [phone] Bilirubin Test strip Ql (U)o n 07-15-2022 Bilirubin Ql (U) Negative Negative [facility] Work Phone: Blood erythrocytes count (nu mber/volume)on 07-15-2022 RBC (Bld) [#/Vol] 5.01 10*6/uL 4.6-6.2 [facility] Work Phone: Blood hemoglobin measurement (mass/volume)on 07-15-2022 Hemoglobin (Bld) [Mass/Vol] 14.8 g/dL 13.0-16.5 [facility] Work Phone: Blood lymphocytes/100 leukoc yteson 07-15-2022 Lymphocytes/100 WBC (Bld) 20.9 % 19-41 [facility] Work Phone: Blood monocytes/100 leukocyt eson 07-15-2022 Monocytes/100 WBC (Bld) 8.9 % 0-10 [facility] Work Phone: Blood platelet mean volumeon 07-15-2022 Platelet mean volume (Bld) [Entitic vol] 9.7 fL 6.2-12.0 [facility] Work Phone: Determination of erythrocyte mean corpuscular volume (MCV)on 07-15-2022 MCV (RBC) [Entitic vol] 91.8 fL 80-94 [facility] Work Phone: [phone] Hematocrit Auto (Bld) [Volum e fraction]on 07-15-2022 Hematocrit (Bld) [Volume fraction] 46.0 % 40-54 [facility] Work Phone: Ketones Test strip Ql (U)on 07-15-2022 Ketones Ql (U) Negative Negative [facility] Work Phone: Laboratory - Chemistry and C hemistry - challengeon 07-15-2022 CO2 [Moles/Vol] 25.0 mmol/L 21.0-32.0 [facility] Work Phone: Urea nitrogen/Creatinine [Mass ratio] 14.9 mg/mg 10-20 [facility] Work Phone: Laboratory - Hematology and Cell countson 07-15-2022 Erythrocyte distribution width (RBC) [Entitic vol] 44.0 fL 35.1-43.9 [facility] Work Phone: Erythrocyte distribution width (RBC) [Ratio] 13.1 % 11.6-14.6 [facility] Work Phone: Immature granulocytes/100 WBC (Bld) 0.700 % 0.0-0.9 [facility] Work Phone: Comment on above: IG% - Immature Granu locytes (promyelocytes, myelocytes and metamyelocytes) > 1% indicates that a LEFT SHIFT is Present. MCH (RBC) [Entitic mass] 29.5 pg 27.0-32.0 [facility] Work Phone: [phone] Nucleated RBC/100 WBC (Bld) [Ratio] 0 % 0-5 [facility] Work Phone: MCHC Auto (RBC) [Mass/Vol]on 07-15-2022 MCHC (RBC) [Mass/Vol] 32.2 g/dL 32-36 [facility] Work Phone: Nitrite Test strip Ql (U)on 07-15-2022 Nitrite Ql (U) Negative Negative [facility] Work Phone: No Panel Informationon 07-15 Estimated GFR (MDRD) Amer 54 mL/min >60 [facility] Work Phone: Comment on above: GFR Calc Estimated GFR (MDRD) Non-Af Amer 45 mL/min >60 [facility] Work Phone: Comment on above: Non- GFR Calc Platelets bldon 07-15-2022 Platelets (Bld) [#/Vol] 231 10*3/uL 150-450 [facility] Work Phone: Protein Test strip Ql (U)on 07-15-2022 Protein Ql (U) 30 mg/dl Negative [facility] Work Phone: Serum or plasma albumin you urement (mass/volume)on 07-15-2022 Albumin [Mass/Vol] 3.1 g/dL 3.2-5.0 [facility] Work Phone: Serum or plasma calcium you urement (mass/volume)on 07-15-2022 Calcium [Mass/Vol] 8.6 mg/dL 8.5-10.1 [facility] Work Phone: Serum or plasma creatinine m easurement (mass/volume)on 07-15-2022 Creatinine [Mass/Vol] 1.68 mg/dL 0.70-1.30 [facility] Work Phone: Comment on above: The validity of the calculated GFR & GFRAA in patients over 70 years has not been determined. Clinical correlation is essential. Serum or plasma urea nitroge n measurement (mass/volume)on 07-15-2022 Urea nitrogen [Mass/Vol] 25 mg/dL 7-18 [facility] Work Phone: [phone] Urine blood detectionon 09-0 RBC Ql (U) Negative Negative [facility] Work Phone: Urine clarityon 07-15-2022 Clarity (U) Sl. Cloudy Clear [facility] Work Phone: [phone] Urine color determinationon 07-15-2022 Color (U) Yellow Yellow [facility] Work Phone: Urine creatinine measurement (mass/volume)on 07-15-2022 Creatinine (U) [Mass/Vol] 114.00 mg/dL NO RANGE EST. [facility] Work Phone: Urine glucose detectionon Glucose Ql (U) Normal mg/dl Normal [facility] Work Phone: Urine leukocyte esterase det ection by dipstickon 07-15-2022 Leukocyte esterase Test strip Ql (U) 100 /ul Negative [facility] Work Phone: Urine pHon 07-15-2022 pH (U) 6.0 [pH] 5.0 - 8.0 [facility] Work Phone: [phone] Urine protein measurement (m ass/volume)on 07-15-2022 Protein (U) [Mass/Vol] 26.5 mg/dL 0.0-11.8 [facility] Work Phone: Urine protein/creatinine mas s ratioon 07-15-2022 Protein/Creatinine (U) [Mass ratio] 232 mg/g CRE 0-200 [facility] Work Phone: Urine specific gravity measu rementon 07-15-2022 Specific gravity (U) [Rel density] 1.015 1.002-1.03 0 [facility] Work Phone: Urobilinogen Auto test strip Ql (U)on 07-15-2022 Urobilinogen Ql (U) Normal mg/dl Normal [facility] Work Phone: Basophil percentageon 2021 Cholesterol [Mass/Vol] 149 mg/dL <200 [facility] Work Phone: Comment on above: <200 mg/dL Desirable 200-240 mg/dL Borderline >240 mg/dL High Risk Triglyceride [Mass/Vol] 379 mg/dL <199 [facility] Work Phone: Comment on above: The drugs N-Acetylcy steine and Metamizole may falsely depress this assay.Serum Triglycerides Reference Interval Normal <150 mg/dL Borderline high 150 - 199 mg/dL High 200 - 499 mg/dL Very High > or = 500 mg/dL No Panel Informationon 06-28 [place] Level 0.40 mmol/L 0.60-1.20 [facility] Work Phone: Serum or plasma cholesterol in HDL measurement (mass/volume)on 06-28-2022 Cholesterol in HDL [Mass/Vol] 34 mg/dL >40 [facility] Work Phone: Comment on above: The drugs N-Acetylcy steine and Metamizole may falsely depress this assay. Reference Range HDL <40 mg/dL Low HDL Cholesterol HDL >or= 60 mg/dL High HDL Cholesterol Serum or plasma cholesterol in VLDL measurement (mass/volume)on 06-28-2022 Cholesterol in VLDL [Mass/Vol] 76 mg/dL 5-40 [facility] Work Phone: Serum or plasma low density lipoprotein (LDL) cholesterol measurement (mass/volume)on 06-28-2022 Cholesterol in LDL [Mass/Vol] 39 mg/dL 0-130 [facility] Work Phone: Serum or plasma uric acid me asurement (mass/volume)on 06-28-2022 Urate [Mass/Vol] 5.9 mg/dL 3.5-7.2 [facility] Work Phone: Comment on above: The drugs N-Acetylcy steine and Metamizole may falsely depress this assay. Absolute lymphocyte counton 06-17-2022 Lymphocytes Auto (Unsp spec) [#/Vol] 2.02 10*3/uL 0.83-4.51 [facility] Work Phone: Basophil percentageon 2021 Basophil percentage 0-5 SEEN /hpf 0-5 [facility] Work Phone: Basophil percentage 3.8 mg/dL 2.5-4.9 [facility]: Basophils/100 WBC (Bld) 0.8 % 0-1 [facility] Work Phone: Chloride [Moles/Vol] 108 mmol/L 98-107 [facility] Work [facility]: Eosinophils/100 WBC (Bld) 2.9 % 0-5 [facility] Work Phone: Glucose [Mass/Vol] 133 mg/dL 74-106 [facility] Work Phone: Comment on above: Fasting Glucose resu lt greater than or equal to 126 mg/dL suggests DIABETES MELLITUS per A.D.A. criteria. Neutrophils (Bld) [#/Vol] 5.3 10*3/uL 2.0-7.7 [facility] Work Phone: Neutrophils/100 WBC (Bld) 61.6 % 47-70 [facility] Work Phone: Potassium [Moles/Vol] 3.8 mmol/L 3.5-5.1 [facility] Work [facility]: Sodium [Moles/Vol] 140 mmol/L 136-145 [facility] Work Phone: WBC (Bld) [#/Vol] 8.6 10*3/uL 4.4-11.0 [facility] Work Phone: Bilirubin Test strip Ql (U)o n 06-17-2022 Bilirubin Ql (U) Negative Negative [facility] Work Phone: Blood erythrocytes count (nu mber/volume)on 06-17-2022 RBC (Bld) [#/Vol] 4.46 10*6/uL 4.6-6.2 [facility] Work Phone: Blood hemoglobin measurement (mass/volume)on 06-17-2022 Hemoglobin (Bld) [Mass/Vol] 13.4 g/dL 13.0-16.5 [facility] Work Phone: Blood lymphocytes/100 leukoc yteson 06-17-2022 Lymphocytes/100 WBC (Bld) 23.5 % 19-41 [facility] Work Phone: Blood monocytes/100 leukocyt eson 06-17-2022 Monocytes/100 WBC (Bld) 10.0 % 0-10 [facility] Work Phone: Blood platelet mean volumeon 06-17-2022 Platelet mean volume (Bld) [Entitic vol] 9.6 fL 6.2-12.0 [facility] Work Phone: [phone] Determination of erythrocyte mean corpuscular volume (MCV)on 06-17-2022 MCV (RBC) [Entitic vol] 91.3 fL 80-94 [facility] Work Phone: [phone] Hematocrit Auto (Bld) [Volum e fraction]on 06-17-2022 Hematocrit (Bld) [Volume fraction] 40.7 % 40-54 [facility] Work Phone: [phone] Ketones Test strip Ql (U)on 06-17-2022 Ketones Ql (U) Negative Negative [facility] Work Phone: [phone] Laboratory - Chemistry and C hemistry - challengeon 06-17-2022 CO2 [Moles/Vol] 25.0 mmol/L 21.0-32.0 [facility] Work Phone: [phone] Urea nitrogen/Creatinine [Mass ratio] 12.6 mg/mg 10-20 [facility] Work Phone: Laboratory - Hematology and Cell countson 06-17-2022 Erythrocyte distribution width (RBC) [Entitic vol] 45.5 fL 35.1-43.9 [facility] Work Phone: [phone] Erythrocyte distribution width (RBC) [Ratio] 13.4 % 11.6-14.6 [facility] Work Phone: [phone] Immature granulocytes/100 WBC (Bld) 1.200 % 0.0-0.9 [facility] Work Phone: Comment on above: IG% - Immature Granu locytes (promyelocytes, myelocytes and metamyelocytes) > 1% indicates that a LEFT SHIFT is Present. MCH (RBC) [Entitic mass] 30.0 pg 27.0-32.0 [facility] Work Phone: Nucleated RBC/100 WBC (Bld) [Ratio] 0 % 0-5 [facility] Work Phone: MCHC Auto (RBC) [Mass/Vol]on 06-17-2022 MCHC (RBC) [Mass/Vol] 32.9 g/dL 32-36 [facility] Work Phone: Mucus LM Ql (Urine sed)on Mucus Ql (Urine sed) 0 SEEN /hpf [facility] Work Phone: Nitrite Test strip Ql (U)on 06-17-2022 Nitrite Ql (U) Negative Negative [facility] Work Phone: No Panel Informationon 06-17 Estimated GFR (MDRD) Amer 58 mL/min >60 [facility] Work Phone: Comment on above: GFR Calc Estimated GFR (MDRD) Non-Af Amer 48 mL/min >60 [facility] Work Phone: Comment on above: Non- GFR Calc Platelets bldon 06-17-2022 Platelets (Bld) [#/Vol] 178 10*3/uL 150-450 [facility] Work Phone: Protein Test strip Ql (U)on 06-17-2022 Protein Ql (U) 15 mg/dl Negative [facility] Work Phone: Serum or plasma albumin you urement (mass/volume)on 06-17-2022 Albumin [Mass/Vol] 2.8 g/dL 3.2-5.0 [facility] Work Phone: Serum or plasma calcium you urement (mass/volume)on 06-17-2022 Calcium [Mass/Vol] 8.6 mg/dL 8.5-10.1 [facility] Work Phone: Serum or plasma creatinine m easurement (mass/volume)on 06-17-2022 Creatinine [Mass/Vol] 1.59 mg/dL 0.70-1.30 [facility] Work Phone: Comment on above: The validity of the calculated GFR & GFRAA in patients over 70 years has not been determined. Clinical correlation is essential. Serum or plasma urea nitroge n measurement (mass/volume)on 06-17-2022 Urea nitrogen [Mass/Vol] 20 mg/dL 7-18 [facility] Work Phone: Squamous epithelial cells de tection in urine sediment by light microscopyon 06-17-2022 Epithelial cells.squamous LM Ql (Urine sed) 0-5 SEEN /hpf 0-5 [facility] Work Phone: Urine blood detectionon RBC Ql (U) Negative Negative [facility] Work Phone: RBC Ql (U) 0 SEEN /hpf 0-5 [facility] Work Phone: Urine clarityon 06-17-2022 Clarity (U) Clear Clear [facility] Work Phone: Urine color determinationon 06-17-2022 Color (U) Yellow Yellow [facility] Work Phone: Urine creatinine measurement (mass/volume)on 06-17-2022 Creatinine (U) [Mass/Vol] 118.00 mg/dL NO RANGE EST. [facility] Work Phone: Urine glucose detectionon Glucose Ql (U) Normal mg/dl Normal [facility] Work Phone: Urine leukocyte esterase det ection by dipstickon 06-17-2022 Leukocyte esterase Test strip Ql (U) 100 /ul Negative [facility] Work Phone: Urine pHon 06-17-2022 pH (U) 6.0 [pH] 5.0 - 8.0 [facility] Work Phone: Urine protein measurement (m ass/volume)on 06-17-2022 Protein (U) [Mass/Vol] 22.0 mg/dL 0.0-11.8 [facility] Work Phone: Urine protein/creatinine mas s ratioon 06-17-2022 Protein/Creatinine (U) [Mass ratio] 186 mg/g CRE 0-200 [facility] Work Phone: Urine sediment bacteria coun t by microscopy (number/high power field)on 06-17-2022 Bacteria LM.HPF (Urine sed) [#/Area] 0 /[HPF] None Seen [facility] Work Phone: Urine specific gravity measu rementon 06-17-2022 Specific gravity (U) [Rel density] 1.015 1.002-1.03 0 [facility] Work Phone: Urobilinogen Auto test strip Ql (U)on 06-17-2022 Urobilinogen Ql (U) Normal mg/dl Normal [facility] Work Phone: No Panel Informationon 05-27 [place] Level 0.40 mmol/L 0.60-1.20 [facility] Work Phone: Serum or plasma uric acid me asurement (mass/volume)on 05-27-2022 Urate [Mass/Vol] 6.1 mg/dL 3.5-7.2 [facility] Work Phone: Comment on above: The drugs N-Acetylcy steine and Metamizole may falsely depress this assay. Absolute lymphocyte counton 05-20-2022 Lymphocytes Auto (Unsp spec) [#/Vol] 2.07 10*3/uL 0.83-4.51 [facility] Work Phone: Basophil percentageon 2021 Basophil percentage 3.2 mg/dL 2.5-4.9 [facility] Work Phone: Basophils/100 WBC (Bld) 0.7 % 0-1 [facility] Work Phone: Chloride [Moles/Vol] 108 mmol/L 98-107 [facility] Work Phone: Eosinophils/100 WBC (Bld) 2.5 % 0-5 [facility] Work Phone: Glucose [Mass/Vol] 149 mg/dL 74-106 [facility] Work Phone: [phone] Comment on above: Fasting Glucose resu lt greater than or equal to 126 mg/dL suggests DIABETES MELLITUS per A.D.A. criteria. Neutrophils (Bld) [#/Vol] 6.4 10*3/uL 2.0-7.7 [facility] Work Phone: Neutrophils/100 WBC (Bld) 65.6 % 47-70 [facility] Work Phone: Potassium [Moles/Vol] 3.9 mmol/L 3.5-5.1 [facility] Work Phone: Sodium [Moles/Vol] 140 mmol/L 136-145 [facility] Work Phone: WBC (Bld) [#/Vol] 9.7 10*3/uL 4.4-11.0 [facility] Work Phone: [phone] Basophil percentage 0-5 SEEN /hpf 0-5 [facility] Work Phone: [phone] Bilirubin Test strip Ql (U)o n 05-20-2022 Bilirubin Ql (U) Negative Negative [facility] Work Phone: Blood erythrocytes count (nu mber/volume)on 05-20-2022 RBC (Bld) [#/Vol] 4.36 10*6/uL 4.6-6.2 [facility] Work [facility]: Blood hemoglobin measurement (mass/volume)on 05-20-2022 Hemoglobin (Bld) [Mass/Vol] 12.9 g/dL 13.0-16.5 [facility] Work Phone: Blood lymphocytes/100 leukoc yteson 05-20-2022 Lymphocytes/100 WBC (Bld) 21.4 % 19-41 [facility] Work Phone: Blood monocytes/100 leukocyt eson 05-20-2022 Monocytes/100 WBC (Bld) 9.3 % 0-10 [facility] Work Phone: Blood platelet mean volumeon 05-20-2022 Platelet mean volume (Bld) [Entitic vol] 9.6 fL 6.2-12.0 [facility] Work Phone: Determination of erythrocyte mean corpuscular volume (MCV)on 05-20-2022 MCV (RBC) [Entitic vol] 91.5 fL 80-94 [facility] Work Phone: [phone] Hematocrit Auto (Bld) [Volum e fraction]on 05-20-2022 Hematocrit (Bld) [Volume fraction] 39.9 % 40-54 [facility] Work Phone: Ketones Test strip Ql (U)on 05-20-2022 Ketones Ql (U) Negative Negative [facility] Work Phone: [phone] Laboratory - Chemistry and C hemistry - challengeon 05-20-2022 CO2 [Moles/Vol] 26.0 mmol/L 21.0-32.0 [facility] Work Phone: Urea nitrogen/Creatinine [Mass ratio] 9.9 mg/mg 10-20 [facility] Work Phone: Laboratory - Hematology and Cell countson 05-20-2022 Erythrocyte distribution width (RBC) [Entitic vol] 45.7 fL 35.1-43.9 [facility] Work Phone: Erythrocyte distribution width (RBC) [Ratio] 13.6 % 11.6-14.6 [facility] Work Phone: [phone] Immature granulocytes/100 WBC (Bld) 0.500 % 0.0-0.9 [facility] Work Phone: Comment on above: IG% - Immature Granu locytes (promyelocytes, myelocytes and metamyelocytes) > 1% indicates that a LEFT SHIFT is Present. MCH (RBC) [Entitic mass] 29.6 pg 27.0-32.0 [facility] Work Phone: Nucleated RBC/100 WBC (Bld) [Ratio] 0 % 0-5 [facility] Work Phone: MCHC Auto (RBC) [Mass/Vol]on 05-20-2022 MCHC (RBC) [Mass/Vol] 32.3 g/dL 32-36 [facility] Work Phone: Mucus LM Ql (Urine sed)on Mucus Ql (Urine sed) 0 SEEN /hpf [facility] Work Phone: Nitrite Test strip Ql (U)on 05-20-2022 Nitrite Ql (U) Negative Negative [facility] Work Phone: No Panel Informationon 05-20 Estimated GFR (MDRD) Amer 53 mL/min >60 [facility] Work Phone: Comment on above: GFR Calc Estimated GFR (MDRD) Non-Af Amer 44 mL/min >60 [facility] Work Phone: Comment on above: Non- GFR Calc Platelets bldon 05-20-2022 Platelets (Bld) [#/Vol] 197 10*3/uL 150-450 [facility] Work Phone: Protein Test strip Ql (U)on 05-20-2022 Protein Ql (U) Negative Negative [facility] Work Phone: Serum or plasma albumin you urement (mass/volume)on 05-20-2022 Albumin [Mass/Vol] 2.7 g/dL 3.2-5.0 [facility] Work Phone: Serum or plasma calcium you urement (mass/volume)on 05-20-2022 Calcium [Mass/Vol] 9.0 mg/dL 8.5-10.1 [facility] Work Phone: Serum or plasma creatinine m easurement (mass/volume)on 05-20-2022 Creatinine [Mass/Vol] 1.71 mg/dL 0.70-1.30 [facility] Work Phone: Comment on above: The validity of the calculated GFR & GFRAA in patients over 70 years has not been determined. Clinical correlation is essential. Serum or plasma urea nitroge n measurement (mass/volume)on 05-20-2022 Urea nitrogen [Mass/Vol] 17 mg/dL 7-18 [facility] Work Phone: Squamous epithelial cells de tection in urine sediment by light microscopyon 05-20-2022 Epithelial cells.squamous LM Ql (Urine sed) 0-5 SEEN /hpf 0-5 [facility] Work Phone: Urine blood detectionon RBC Ql (U) Negative Negative [facility] Work Phone: RBC Ql (U) 0 SEEN /hpf 0-5 [facility] Work Phone: Urine clarityon 05-20-2022 Clarity (U) Clear Clear [facility] Work Phone: Urine color determinationon 05-20-2022 Color (U) Yellow Yellow [facility] Work Phone: Urine creatinine measurement (mass/volume)on 05-20-2022 Creatinine (U) [Mass/Vol] 107.00 mg/dL NO RANGE EST. [facility] Work Phone: Urine glucose detectionon Glucose Ql (U) Normal mg/dl Normal [facility] Work Phone: Urine leukocyte esterase det ection by dipstickon 05-20-2022 Leukocyte esterase Test strip Ql (U) 25 /ul Negative [facility] Work Phone: [phone] Urine pHon 05-20-2022 pH (U) 6.5 [pH] 5.0 - 8.0 [facility] Work Phone: Urine protein measurement (m ass/volume)on 05-20-2022 Protein (U) [Mass/Vol] 17.3 mg/dL 0.0-11.8 [facility] Work Phone: Urine protein/creatinine mas s ratioon 05-20-2022 Protein/Creatinine (U) [Mass ratio] 162 mg/g CRE 0-200 [facility] Work Phone: Urine sediment bacteria coun t by microscopy (number/high power field)on 05-20-2022 Bacteria LM.HPF (Urine sed) [#/Area] 0 /[HPF] None Seen [facility] Work Phone: Urine specific gravity measu rementon 05-20-2022 Specific gravity (U) [Rel density] 1.010 1.002-1.03 0 [facility] Work Phone: Urobilinogen Auto test strip Ql (U)on 05-20-2022 Urobilinogen Ql (U) Normal mg/dl Normal [facility] Work Phone: No Panel Informationon 05-05 [facility] Absolute lymphocyte counton 04-27-2022 Lymphocytes Auto (Unsp spec) [#/Vol] 2.36 10*3/uL 0.83-4.51 [facility] Work Phone: Basophil percentageon 2021 Basophil percentage 4.6 mg/dL 2.5-4.9 [facility]: Basophils/100 WBC (Bld) 0.3 % 0-1 [facility] Work Phone: Chloride [Moles/Vol] 104 mmol/L 98-107 [facility] Work Phone: Eosinophils/100 WBC (Bld) 0.1 % 0-5 [facility] Work Phone: Glucose [Mass/Vol] 190 mg/dL 74-106 [facility] Work Phone: Comment on above: Fasting Glucose resu lt greater than or equal to 126 mg/dL suggests DIABETES MELLITUS per A.D.A. criteria. Neutrophils (Bld) [#/Vol] 10.5 10*3/uL 2.0-7.7 [facility] Work Phone: Neutrophils/100 WBC (Bld) 72.0 % 47-70 [facility] Work Phone: Potassium [Moles/Vol] 3.8 mmol/L 3.5-5.1 [place] [facility] Work Phone: Sodium [Moles/Vol] 140 mmol/L 136-145 [facility]: WBC (Bld) [#/Vol] 14.5 10*3/uL 4.4-11.0 [facility] Work [facility]: [phone] Blood erythrocytes count (nu mber/volume)on 04-27-2022 RBC (Bld) [#/Vol] 4.56 10*6/uL 4.6-6.2 [facility] Work Phone: [phone] Blood hemoglobin measurement (mass/volume)on 04-27-2022 Hemoglobin (Bld) [Mass/Vol] 13.4 g/dL 13.0-16.5 [facility] Work Phone: Blood lymphocytes/100 leukoc yteson 04-27-2022 Lymphocytes/100 WBC (Bld) 16.3 % 19-41 [facility] Work Phone: Blood monocytes/100 leukocyt eson 04-27-2022 Monocytes/100 WBC (Bld) 7.6 % 0-10 [facility] Work Phone: Blood platelet mean volumeon 04-27-2022 Platelet mean volume (Bld) [Entitic vol] 9.2 fL 6.2-12.0 [facility] Work Phone: [phone] Determination of erythrocyte mean corpuscular volume (MCV)on 04-27-2022 MCV (RBC) [Entitic vol] 91.0 fL 80-94 [facility] Work Phone: Hematocrit Auto (Bld) [Volum e fraction]on 04-27-2022 Hematocrit (Bld) [Volume fraction] 41.5 % 40-54 [facility] Work Phone: [phone] Laboratory - Chemistry and C hemistry - challengeon 04-27-2022 CO2 [Moles/Vol] 28.0 mmol/L 21.0-32.0 [facility] Work Phone: Urea nitrogen/Creatinine [Mass ratio] 13.4 mg/mg 10-20 [facility] Work Phone: Laboratory - Hematology and Cell countson 04-27-2022 Erythrocyte distribution width (RBC) [Entitic vol] 45.7 fL 35.1-43.9 [facility] Work Phone: Erythrocyte distribution width (RBC) [Ratio] 13.7 % 11.6-14.6 [facility] Work Phone: Immature granulocytes/100 WBC (Bld) 3.700 % 0.0-0.9 [facility] Work Phone: Comment on above: IG% - Immature Granu locytes (promyelocytes, myelocytes and metamyelocytes) > 1% indicates that a LEFT SHIFT is Present. MCH (RBC) [Entitic mass] 29.4 pg 27.0-32.0 [facility] Work Phone: Nucleated RBC/100 WBC (Bld) [Ratio] 0.1 % 0-5 [facility] Work Phone: MCHC Auto (RBC) [Mass/Vol]on 04-27-2022 MCHC (RBC) [Mass/Vol] 32.3 g/dL 32-36 [facility] Work Phone: No Panel Informationon 04-27 Estimated GFR (MDRD) Amer 44 mL/min >60 [facility] Work Phone: Comment on above: GFR Calc Estimated GFR (MDRD) Non-Af Amer 36 mL/min >60 [facility] Work Phone: Comment on above: Non- GFR Calc [place] Level 0.50 mmol/L 0.60-1.20 [facility] Work Phone: Platelets bldon 04-27-2022 Platelets (Bld) [#/Vol] 243 10*3/uL 150-450 [facility] Work Phone: Serum or plasma albumin you urement (mass/volume)on 04-27-2022 Albumin [Mass/Vol] 2.9 g/dL 3.2-5.0 [facility] Work Phone: Serum or plasma calcium you urement (mass/volume)on 04-27-2022 Calcium [Mass/Vol] 9.3 mg/dL 8.5-10.1 [place] [facility] Work Phone: Serum or plasma creatinine m easurement (mass/volume)on 04-27-2022 Creatinine [Mass/Vol] 2.02 mg/dL 0.70-1.30 [place] [facility] Work Phone: Comment on above: The validity of the calculated GFR & GFRAA in patients over 70 years has not been determined. Clinical correlation is essential. Serum or plasma urea nitroge n measurement (mass/volume)on 04-27-2022 Urea nitrogen [Mass/Vol] 27 mg/dL 7-18 [facility] Work Phone: Serum or plasma uric acid me asurement (mass/volume)on 04-27-2022 Urate [Mass/Vol] 6.5 mg/dL 3.5-7.2 [facility] Work Phone: Comment on above: The drugs N-Acetylcy steine and Metamizole may falsely depress this assay. Urine creatinine measurement (mass/volume)on 04-27-2022 Creatinine (U) [Mass/Vol] 69.70 mg/dL NO RANGE EST. [facility] Work Phone: Urine protein measurement (m ass/volume)on 04-27-2022 Protein (U) [Mass/Vol] 10.2 mg/dL 0.0-11.8 [facility] Work Phone: Urine protein/creatinine mas s ratioon 04-27-2022 Protein/Creatinine (U) [Mass ratio] 146 mg/g CRE 0-200 [facility] Work Phone: Basophil percentageon 2021 Basophil percentage 4.2 mg/dL 2.5-4.9 [place] [facility] Work Phone: Chloride [Moles/Vol] 107 mmol/L 98-107 [facility] Work Phone: Glucose [Mass/Vol] 129 mg/dL 74-106 [facility] Work Phone: Comment on above: Fasting Glucose resu lt greater than or equal to 126 mg/dL suggests DIABETES MELLITUS per A.D.A. criteria. Potassium [Moles/Vol] 3.8 mmol/L 3.5-5.1 [facility] Work Phone: Sodium [Moles/Vol] 140 mmol/L 136-145 [facility] Work Phone: Basophil percentage 25-50 SEEN /hpf 0-5 [facility] Work Phone: Bilirubin Test strip Ql (U)o n 04-22-2022 Bilirubin Ql (U) Negative Negative [facility] Work Phone: Culture, urineon 04-22-2022 Bacteria identified Cx Nom (U) Positive [facility] Work Phone: Ketones Test strip Ql (U)on 04-22-2022 Ketones Ql (U) Negative Negative [facility] Work Phone: Laboratory - Chemistry and C hemistry - challengeon 04-22-2022 CO2 [Moles/Vol] 27.0 mmol/L 21.0-32.0 [facility] Work Phone: Urea nitrogen/Creatinine [Mass ratio] 8.2 mg/mg 10-20 [facility] Work Phone: Mucus LM Ql (Urine sed)on Mucus Ql (Urine sed) 0 SEEN /hpf [facility] Work Phone: Nitrite Test strip Ql (U)on 04-22-2022 Nitrite Ql (U) Negative Negative [facility] Work Phone: No Panel Informationon 04-22 Estimated GFR (MDRD) Amer 53 mL/min >60 [facility] Work Phone: Comment on above: GFR Calc Estimated GFR (MDRD) Non-Af Amer 44 mL/min >60 [facility] Work Phone: Comment on above: Non- GFR Calc Protein Test strip Ql (U)on 04-22-2022 Protein Ql (U) 15 mg/dl Negative [facility] Work Phone: Serum or plasma albumin you urement (mass/volume)on 04-22-2022 Albumin [Mass/Vol] 2.6 g/dL 3.2-5.0 [facility] Work Phone: Serum or plasma calcium you urement (mass/volume)on 04-22-2022 Calcium [Mass/Vol] 9.1 mg/dL 8.5-10.1 [facility] Work Phone: Serum or plasma creatinine m easurement (mass/volume)on 04-22-2022 Creatinine [Mass/Vol] 1.71 mg/dL 0.70-1.30 [facility] Work Phone: Comment on above: The validity of the calculated GFR & GFRAA in patients over 70 years has not been determined. Clinical correlation is essential. Serum or plasma urea nitroge n measurement (mass/volume)on 04-22-2022 Urea nitrogen [Mass/Vol] 14 mg/dL 7-18 [facility] Work Phone: Squamous epithelial cells de tection in urine sediment by light microscopyon 04-22-2022 Epithelial cells.squamous LM Ql (Urine sed) 0-5 SEEN /hpf 0-5 [facility] Work Phone: Urine blood detectionon RBC Ql (U) 10 /ul Negative [facility] Work Phone: RBC Ql (U) 0-5 SEEN /hpf 0-5 [facility] Work Phone: Urine clarityon 04-22-2022 Clarity (U) Clear Clear [facility] Work Phone: Urine color determinationon 04-22-2022 Color (U) Yellow Yellow [facility] Work Phone: Urine creatinine measurement (mass/volume)on 04-22-2022 Creatinine (U) [Mass/Vol] 171.00 mg/dL NO RANGE EST. [facility] Work Phone: Urine glucose detectionon Glucose Ql (U) Normal mg/dl Normal [facility] Work Phone: Urine leukocyte esterase det ection by dipstickon 04-22-2022 Leukocyte esterase Test strip Ql (U) 500 /ul Negative [facility] Work Phone: Urine pHon 04-22-2022 pH (U) 6.0 [pH] 5.0 - 8.0 [facility] Work Phone: Urine protein measurement (m ass/volume)on 04-22-2022 Protein (U) [Mass/Vol] 30.4 mg/dL 0.0-11.8 [facility] Work Phone: Urine protein/creatinine mas s ratioon 04-22-2022 Protein/Creatinine (U) [Mass ratio] 178 mg/g CRE 0-200 [facility] Work Phone: Urine sediment bacteria coun t by microscopy (number/high power field)on 04-22-2022 Bacteria LM.HPF (Urine sed) [#/Area] 0 /[HPF] None Seen [facility] Work Phone: Urine specific gravity measu rementon 04-22-2022 Specific gravity (U) [Rel density] 1.015 1.002-1.03 0 [facility] Work Phone: Urobilinogen Auto test strip Ql (U)on 04-22-2022 Urobilinogen Ql (U) Normal mg/dl Normal [facility] Work Phone: Absolute lymphocyte counton 04-21-2022 Lymphocytes Auto (Unsp spec) [#/Vol] 2.19 10*3/uL 0.83-4.51 [facility] Work Phone: Basophil percentageon 2021 Basophils/100 WBC (Bld) 0.6 % 0-1 [facility] Work Phone: Eosinophils/100 WBC (Bld) 2.4 % 0-5 [facility] Work Phone: Neutrophils (Bld) [#/Vol] 5.3 10*3/uL 2.0-7.7 [facility] Work Phone: Neutrophils/100 WBC (Bld) 60.5 % 47-70 [facility] Work Phone: WBC (Bld) [#/Vol] 8.8 10*3/uL 4.4-11.0 [facility] Work Phone: Blood erythrocytes count (nu mber/volume)on 04-21-2022 RBC (Bld) [#/Vol] 4.29 10*6/uL 4.6-6.2 [facility] Work Phone: Blood hemoglobin measurement (mass/volume)on 04-21-2022 Hemoglobin (Bld) [Mass/Vol] 12.9 g/dL 13.0-16.5 [facility] Work Phone: Blood lymphocytes/100 leukoc yteson 04-21-2022 Lymphocytes/100 WBC (Bld) 24.9 % 19-41 [facility] Work Phone: Blood monocytes/100 leukocyt eson 04-21-2022 Monocytes/100 WBC (Bld) 11.4 % 0-10 [facility] Work Phone: Blood platelet mean volumeon 04-21-2022 Platelet mean volume (Bld) [Entitic vol] 9.5 fL 6.2-12.0 [facility] Work Phone: Determination of erythrocyte mean corpuscular volume (MCV)on 04-21-2022 MCV (RBC) [Entitic vol] 92.1 fL 80-94 [facility] Work Phone: Hematocrit Auto (Bld) [Volum e fraction]on 04-21-2022 Hematocrit (Bld) [Volume fraction] 39.5 % 40-54 [facility] Work Phone: Laboratory - Hematology and Cell countson 04-21-2022 Erythrocyte distribution width (RBC) [Entitic vol] 45.9 fL 35.1-43.9 [facility] Work Phone: Erythrocyte distribution width (RBC) [Ratio] 13.5 % 11.6-14.6 [facility] Work Phone: Immature granulocytes/100 WBC (Bld) 0.200 % 0.0-0.9 [facility] Work Phone: Comment on above: IG% - Immature Granu locytes (promyelocytes, myelocytes and metamyelocytes) > 1% indicates that a LEFT SHIFT is Present. MCH (RBC) [Entitic mass] 30.1 pg 27.0-32.0 [facility] Work Phone: Nucleated RBC/100 WBC (Bld) [Ratio] 0 % 0-5 [facility] Work Phone: MCHC Auto (RBC) [Mass/Vol]on 04-21-2022 MCHC (RBC) [Mass/Vol] 32.7 g/dL 32-36 [facility] Work Phone: Platelets bldon 04-21-2022 Platelets (Bld) [#/Vol] 199 10*3/uL 150-450 [facility] Work Phone: Serum or plasma uric acid me asurement (mass/volume)on 04-21-2022 Urate [Mass/Vol] 6.2 mg/dL 3.5-7.2 [facility] Work Phone: Comment on above: The drugs N-Acetylcy steine and Metamizole may falsely depress this assay. Laboratory - Microbiology an d Antimicrobial susceptibilityon 04-06-2022 SARS-CoV-2 (COVID-19) RNA AMANDO+probe Ql (Unsp spec) Detected Not Detect [facility] Work Phone: Comment on above: Normal Reference Ran ge: Not DetectedMethod:(RT-PCR) real-time reverse transcriptase PCRLuminex MORGAN Instrument*The Food and Drug Administration (FDA) has issued an Emergency Use Authorization (EAU) for the MORGAN SARS-CoV-2 Assay for the rapid detection of the virus that causes COVID-19. This test has been validated, but the [facility] independent review of this validation is pending.*Negative [...] Auto (Unsp spec) [#/Vol] 1.96 10*3/uL 0.83-4.51 [facility] Work Phone: Basophil percentageon 2021 Basophils/100 WBC (Bld) 0.6 % 0-1 [facility] Work Phone: Chloride [Moles/Vol] 103 mmol/L 98-107 [facility] Work Phone: Eosinophils/100 WBC (Bld) 0.6 % 0-5 [facility] Work Phone: Glucose [Mass/Vol] 133 mg/dL 74-106 [facility] Work Phone: Comment on above: Fasting Glucose resu lt greater than or equal to 126 mg/dL suggests DIABETES MELLITUS per A.D.A. criteria. Neutrophils (Bld) [#/Vol] 7.3 10*3/uL 2.0-7.7 [facility] Work Phone: Neutrophils/100 WBC (Bld) 64.6 % 47-70 [facility] Work Phone: Potassium [Moles/Vol] 3.5 mmol/L 3.5-5.1 [facility] Work Phone: Sodium [Moles/Vol] 138 mmol/L 136-145 [facility] Work Phone: WBC (Bld) [#/Vol] 11.3 10*3/uL 4.4-11.0 [facility] Work Phone: Blood erythrocytes count (nu mber/volume)on 04-02-2022 RBC (Bld) [#/Vol] 4.81 10*6/uL 4.6-6.2 [facility] Work Phone: Blood hemoglobin measurement (mass/volume)on 04-02-2022 Hemoglobin (Bld) [Mass/Vol] 14.4 g/dL 13.0-16.5 [facility] Work Phone: Blood lymphocytes/100 leukoc yteson 04-02-2022 Lymphocytes/100 WBC (Bld) 17.3 % 19-41 [facility] Work Phone: Blood monocytes/100 leukocyt eson 04-02-2022 Monocytes/100 WBC (Bld) 15.7 % 0-10 [facility] Work Phone: Blood platelet mean volumeon 04-02-2022 Platelet mean volume (Bld) [Entitic vol] 10.0 fL 6.2-12.0 [facility] Work Phone: Determination of erythrocyte mean corpuscular volume (MCV)on 04-02-2022 MCV (RBC) [Entitic vol] 91.7 fL 80-94 [facility] Work Phone: Hematocrit Auto (Bld) [Volum e fraction]on 04-02-2022 Hematocrit (Bld) [Volume fraction] 44.1 % 40-54 [facility] Work Phone: [phone] Laboratory - Chemistry and C hemistry - challengeon 04-02-2022 CO2 [Moles/Vol] 26.0 mmol/L 21.0-32.0 [facility] Work Phone: Urea nitrogen/Creatinine [Mass ratio] 14.1 mg/mg 09-02 [facility] Work Phone: Laboratory - Hematology and Cell countson 04-02-2022 Erythrocyte distribution width (RBC) [Entitic vol] 47.8 fL 35.1-43.9 [facility] Work Phone: Erythrocyte distribution width (RBC) [Ratio] 14.0 % 11.6-14.6 [facility] Work Phone: Immature granulocytes/100 WBC (Bld) 1.200 % 0.0-0.9 [facility] Work Phone: Comment on above: IG% - Immature Granu locytes (promyelocytes, myelocytes and metamyelocytes) > 1% indicates that a LEFT SHIFT is Present. MCH (RBC) [Entitic mass] 29.9 pg 27.0-32.0 [facility] Work Phone: Nucleated RBC/100 WBC (Bld) [Ratio] 0 % 0-5 [facility] Work Phone: MCHC Auto (RBC) [Mass/Vol]on 04-02-2022 MCHC (RBC) [Mass/Vol] 32.7 g/dL 32-36 [facility] Work Phone: No Panel Informationon 04-02 Estimated GFR (MDRD) Amer 51 mL/min >60 [facility] Work Phone: Comment on above: GFR Calc Estimated GFR (MDRD) Non-Af Amer 42 mL/min >60 [facility] Work Phone: Comment on above: Non- GFR Calc Platelets bldon 04-02-2022 Platelets (Bld) [#/Vol] 160 10*3/uL 150-450 [facility] Work Phone: Review by pathologiston 03-15 Pathologist review Crispin (Unsp spec) [Interp] Reviewed [facility] Work Phone: Comment on above: Previous reported re sult: Bonnie kincaid Edited by: ETHEL on 04/06/22:912Leukocytosis. Tuan Servin M.D. 04/06/22 AMENDED REPORT 04/06/22912 PATH REV previously reported as: Bonnie kincaid Serum or plasma calcium you urement (mass/volume)on 04-02-2022 Calcium [Mass/Vol] 9.0 mg/dL 8.5-10.1 [facility] Work Phone: Serum or plasma creatinine m easurement (mass/volume)on 04-02-2022 Creatinine [Mass/Vol] 1.77 mg/dL 0.70-1.30 [facility] Work Phone: [phone] Comment on above: The validity of the calculated GFR & GFRAA in patients over 70 years has not been determined. Clinical correlation is essential. Serum or plasma urea nitroge n measurement (mass/volume)on 04-02-2022 Urea nitrogen [Mass/Vol] 25 mg/dL 7-18 [facility] Work Phone: [phone] Thin prep Papanicolaou smear with manual screeningon 04-02-2022 Thin prep Papanicolaou smear with manual screening 9 5-15 [facility] Work Phone: [phone] Absolute lymphocyte counton 03-25-2022 Lymphocytes Auto (Unsp spec) [#/Vol] 2.80 10*3/uL 0.83-4.51 [facility] Work Phone: [phone] Basophil percentageon 2021 Basophil percentage 4.0 mg/dL 2.5-4.9 [facility] Work Phone: Basophils/100 WBC (Bld) 0.6 % 0-1 [facility] Work Phone: [phone] Chloride [Moles/Vol] 106 mmol/L 98-107 [facility] Work Phone: [phone] Eosinophils/100 WBC (Bld) 1.7 % 0-5 [facility] Work Phone: [phone] Glucose [Mass/Vol] 164 mg/dL 74-106 [facility]: [phone] Comment on above: Fasting Glucose resu lt greater than or equal to 126 mg/dL suggests DIABETES MELLITUS per A.D.A. criteria. Neutrophils (Bld) [#/Vol] 5.6 10*3/uL 2.0-7.7 [facility] Work Phone: [phone] Neutrophils/100 WBC (Bld) 56.9 % 47-70 [facility] Work Phone: Potassium [Moles/Vol] 3.8 mmol/L 3.5-5.1 [place] [facility] Work Phone: Sodium [Moles/Vol] 139 mmol/L 136-145 [place] [facility] Work Phone: WBC (Bld) [#/Vol] 9.8 10*3/uL 4.4-11.0 [place] [facility] Work Phone: [phone] Basophil percentage 0-5 SEEN /hpf 0-5 [facility] Work Phone: [phone] Bilirubin Test strip Ql (U)o n 03-25-2022 Bilirubin Ql (U) Negative Negative [facility] Work Phone: [phone] Blood erythrocytes count (nu mber/volume)on 03-25-2022 RBC (Bld) [#/Vol] 4.77 10*6/uL 4.6-6.[address] [facility] Work Phone: [phone] Blood hemoglobin measurement (mass/volume)on 03-25-2022 Hemoglobin (Bld) [Mass/Vol] 14.1 g/dL 13.0-16.5 [facility] Work Phone: Blood lymphocytes/100 leukoc yteson 03-25-2022 Lymphocytes/100 WBC (Bld) 28.7 % 19-41 [facility] Work Phone: Blood monocytes/100 leukocyt eson 03-25-2022 Monocytes/100 WBC (Bld) 9.2 % 0-10 [facility] Work Phone: Blood platelet mean volumeon 03-25-2022 Platelet mean volume (Bld) [Entitic vol] 9.3 fL 6.2-12.0 [facility] Work Phone: [phone] Determination of erythrocyte mean corpuscular volume (MCV)on 03-25-2022 MCV (RBC) [Entitic vol] 91.4 fL 80-94 [facility] Work Phone: Hematocrit Auto (Bld) [Volum e fraction]on 03-25-2022 Hematocrit (Bld) [Volume fraction] 43.6 % 40-54 [facility] Work Phone: Ketones Test strip Ql (U)on 03-25-2022 Ketones Ql (U) Negative Negative [facility] Work Phone: Laboratory - Chemistry and C hemistry - challengeon 03-25-2022 CO2 [Moles/Vol] 26.0 mmol/L 21.0-32.0 [facility] Work Phone: Urea nitrogen/Creatinine [Mass ratio] 15.4 mg/mg 10-20 [facility] Work Phone: Laboratory - Hematology and Cell countson 03-25-2022 Erythrocyte distribution width (RBC) [Entitic vol] 45.9 fL 35.1-43.9 [facility] Work Phone: Erythrocyte distribution width (RBC) [Ratio] 13.6 % 11.6-14.6 [facility] Work Phone: Immature granulocytes/100 WBC (Bld) 2.900 % 0.0-0.9 [facility] Work Phone: Comment on above: IG% - Immature Granu locytes (promyelocytes, myelocytes and metamyelocytes) > 1% indicates that a LEFT SHIFT is Present. MCH (RBC) [Entitic mass] 29.6 pg 27.0-32.0 [facility] Work Phone: Nucleated RBC/100 WBC (Bld) [Ratio] 0 % 0-5 [facility] Work Phone: MCHC Auto (RBC) [Mass/Vol]on 03-25-2022 MCHC (RBC) [Mass/Vol] 32.3 g/dL 32-36 [facility] Work Phone: Mucus LM Ql (Urine sed)on Mucus Ql (Urine sed) 0 SEEN /hpf [facility] Work Phone: Nitrite Test strip Ql (U)on 03-25-2022 Nitrite Ql (U) Negative Negative [facility] Work Phone: No Panel Informationon 03-25 Estimated GFR (MDRD) Amer 52 mL/min >60 [facility] Work Phone: Comment on above: GFR Calc Estimated GFR (MDRD) Non-Af Amer 43 mL/min >60 [facility] Work Phone: Comment on above: Non- GFR Calc Platelets bldon 03-25-2022 Platelets (Bld) [#/Vol] 276 10*3/uL 150-450 [facility] Work Phone: Protein Test strip Ql (U)on 03-25-2022 Protein Ql (U) Negative Negative [facility] Work Phone: Serum or plasma albumin you urement (mass/volume)on 03-25-2022 Albumin [Mass/Vol] 2.9 g/dL 3.2-5.0 [facility] Work Phone: Serum or plasma calcium you urement (mass/volume)on 03-25-2022 Calcium [Mass/Vol] 8.7 mg/dL 8.5-10.1 [facility] Work Phone: Serum or plasma creatinine m easurement (mass/volume)on 03-25-2022 Creatinine [Mass/Vol] 1.75 mg/dL 0.70-1.30 [facility] Work Phone: Comment on above: The validity of the calculated GFR & GFRAA in patients over 70 years has not been determined. Clinical correlation is essential. Serum or plasma urea nitroge n measurement (mass/volume)on 03-25-2022 Urea nitrogen [Mass/Vol] 27 mg/dL 7-18 [facility] Work Phone: Squamous epithelial cells de tection in urine sediment by light microscopyon 03-25-2022 Epithelial cells.squamous LM Ql (Urine sed) 0-5 SEEN /hpf 0-5 [facility] Work Phone: Urine blood detectionon 03-14 RBC Ql (U) Negative Negative [facility] Work Phone: RBC Ql (U) 0 SEEN /hpf 0-5 [facility] Work Phone: Urine clarityon 03-25-2022 Clarity (U) Sl. Cloudy Clear [facility] Work Phone: [phone] Urine color determinationon 03-25-2022 Color (U) Yellow Yellow [facility] Work Phone: [phone] Urine creatinine measurement (mass/volume)on 03-25-2022 Creatinine (U) [Mass/Vol] 90.50 mg/dL NO RANGE EST. [facility] Work Phone: Urine glucose detectionon Glucose Ql (U) Normal mg/dl Normal [facility] Work Phone: Urine leukocyte esterase det ection by dipstickon 03-25-2022 Leukocyte esterase Test strip Ql (U) 25 /ul Negative [facility] Work Phone: Urine pHon 03-25-2022 pH (U) 6.0 [pH] 5.0 - 8.0 [facility] Work Phone: [phone] Urine protein measurement (m ass/volume)on 03-25-2022 Protein (U) [Mass/Vol] 15.8 mg/dL 0.0-11.8 [facility] Work Phone: [phone] Urine protein/creatinine mas s ratioon 03-25-2022 Protein/Creatinine (U) [Mass ratio] 175 mg/g CRE 0-200 [facility] Work Phone: [phone] Urine sediment bacteria coun t by microscopy (number/high power field)on 03-25-2022 Bacteria LM.HPF (Urine sed) [#/Area] 0 /[HPF] None Seen [facility] Work Phone: [phone] Urine specific gravity measu rementon 03-25-2022 Specific gravity (U) [Rel density] 1.015 1.002-1.03 0 [facility] Work Phone: [phone] Urobilinogen Auto test strip Ql (U)on 03-25-2022 Urobilinogen Ql (U) Normal mg/dl Normal [facility] Work Phone: Serum or plasma uric acid me asurement (mass/volume)on 03-19-2022 Urate [Mass/Vol] 8.3 mg/dL 3.5-7.2 [facility] Work Phone: [phone] Comment on above: The drugs N-Acetylcy steine and Metamizole may falsely depress this assay. Absolute lymphocyte counton 02-25-2022 Lymphocytes Auto (Unsp spec) [#/Vol] 2.27 10*3/uL 0.83-4.51 [facility] Work Phone: Basophil percentageon 2021 Basophil percentage 0 SEEN /hpf 0-5 [facility] Work Phone: Basophil percentage 4.3 mg/dL 2.5-4.9 [facility] Work Phone: Basophils/100 WBC (Bld) 0.3 % 0-1 [facility] Work Phone: Chloride [Moles/Vol] 102 mmol/L 98-107 [facility] Work Phone: Eosinophils/100 WBC (Bld) 0.2 % 0-5 [facility] Work Phone: [phone] Glucose [Mass/Vol] 107 mg/dL 74-106 [facility] Work Phone: [phone] Comment on above: Fasting Glucose resu lt from 100 to 125 mg/dL suggests IMPAIRED HOMEOSTASIS per A.D.A. criteria. Neutrophils (Bld) [#/Vol] 7.8 10*3/uL 2.0-7.7 [facility] Work Phone: Neutrophils/100 WBC (Bld) 67.9 % 47-70 [facility] Work Phone: Potassium [Moles/Vol] 4.1 mmol/L 3.5-5.1 [facility] Work Phone: Comment on above: Moderate Hemolysis, Result may be falsely increased. Sodium [Moles/Vol] 137 mmol/L 136-145 [facility] Work Phone: WBC (Bld) [#/Vol] 11.6 10*3/uL 4.4-11.0 [facility] Work Phone: [phone] Bilirubin Test strip Ql (U)o n 02-25-2022 Bilirubin Ql (U) Negative Negative [facility] Work Phone: [phone] Blood erythrocytes count (nu mber/volume)on 02-25-2022 RBC (Bld) [#/Vol] 4.09 10*6/uL 4.6-6.2 [facility] Work Phone: [phone] Blood hemoglobin measurement (mass/volume)on 02-25-2022 Hemoglobin (Bld) [Mass/Vol] 12.0 g/dL 13.0-16.5 [facility] Work Phone: Blood lymphocytes/100 leukoc yteson 02-25-2022 Lymphocytes/100 WBC (Bld) 19.7 % 19-41 [facility] Work Phone: Blood monocytes/100 leukocyt eson 02-25-2022 Monocytes/100 WBC (Bld) 9.0 % 0-10 [facility] Work Phone: [phone] Blood platelet adequacy dete ction by light microscopyon 02-25-2022 Platelets LM Ql (Bld) ADEQUATE ADEQ [facility] Work Phone: [phone] Blood platelet mean volumeon 02-25-2022 Platelet mean volume (Bld) [Entitic vol] 9.9 fL 6.2-12.0 [facility] Work Phone: Culture, urineon 02-25-2022 Bacteria identified Cx Nom (U) Culture exhibits no growth. [facility] Work Phone: [phone] Determination of erythrocyte mean corpuscular volume (MCV)on 02-25-2022 MCV (RBC) [Entitic vol] 90.2 fL 80-94 [facility] Work Phone: [phone] Hematocrit Auto (Bld) [Volum e fraction]on 02-25-2022 Hematocrit (Bld) [Volume fraction] 36.9 % 40-54 [facility] Work Phone: Ketones Test strip Ql (U)on 02-25-2022 Ketones Ql (U) Negative Negative [facility] Work Phone: Laboratory - Chemistry and C hemistry - challengeon 02-25-2022 CO2 [Moles/Vol] 26.0 mmol/L 21.0-32.0 [facility] Work Phone: Urea nitrogen/Creatinine [Mass ratio] 18.6 mg/mg 10-20 [facility] Work Phone: Laboratory - Hematology and Cell countson 02-25-2022 Erythrocyte distribution width (RBC) [Entitic vol] 46.8 fL 35.1-43.9 [facility] Work Phone: Erythrocyte distribution width (RBC) [Ratio] 14.1 % 11.6-14.6 [facility] Work Phone: Immature granulocytes/100 WBC (Bld) 2.900 % 0.0-0.9 [facility] Work Phone: Comment on above: IG% - Immature Granu locytes (promyelocytes, myelocytes and metamyelocytes) > 1% indicates that a LEFT SHIFT is Present. MCH (RBC) [Entitic mass] 29.3 pg 27.0-32.0 [facility] Work Phone: Nucleated RBC/100 WBC (Bld) [Ratio] 0 % 0-5 [facility] Work Phone: MCHC Auto (RBC) [Mass/Vol]on 02-25-2022 MCHC (RBC) [Mass/Vol] 32.5 g/dL 32-36 [facility] Work Phone: Mucus LM Ql (Urine sed)on Mucus Ql (Urine sed) 0 SEEN /hpf [facility] Work Phone: Nitrite Test strip Ql (U)on 02-25-2022 Nitrite Ql (U) Negative Negative [facility] Work Phone: No Panel Informationon 02-25 Estimated GFR (MDRD) Amer 43 mL/min >60 [facility] Work Phone: Comment on above: GFR Calc Estimated GFR (MDRD) Non-Af Amer 36 mL/min >60 [facility] Work Phone: Comment on above: Non- GFR Calc [place] Level 0.50 mmol/L 0.60-1.20 [facility] Work Phone: Platelets bldon 02-25-2022 Platelets (Bld) [#/Vol] TNP [facility] Work Phone: Comment on above: Test not performedPl ease note: For this sample, a platelet estimate is provided rather than a platelet count due to platelet clumping. Other parameters associated with this sample are not affected by platelet clumping. If a more accurate platelet count is required, a redraw of the patient will be necessary.Previous reported result: 202 [id number] by: [email or web address] on 02/25/22:1032 AMENDED REPORT 02/25/22 1032 PLT previously reported as: 202 K/mm3 Protein Test strip Ql (U)on 02-25-2022 Protein Ql (U) Negative Negative [facility] Work Phone: Serum or plasma albumin you urement (mass/volume)on 02-25-2022 Albumin [Mass/Vol] 3.2 g/dL 3.2-5.0 [facility] Work Phone: Serum or plasma calcium you urement (mass/volume)on 02-25-2022 Calcium [Mass/Vol] 8.4 mg/dL 8.5-10.1 [facility] Work Phone: Serum or plasma creatinine m easurement (mass/volume)on 02-25-2022 Creatinine [Mass/Vol] 2.04 mg/dL 0.70-1.30 [facility] Work Phone: Comment on above: The validity of the calculated GFR & GFRAA in patients over 70 years has not been determined. Clinical correlation is essential. Serum or plasma urea nitroge n measurement (mass/volume)on 02-25-2022 Urea nitrogen [Mass/Vol] 38 mg/dL 7-18 [facility] Work Phone: Serum or plasma uric acid me asurement (mass/volume)on 02-25-2022 Urate [Mass/Vol] 7.8 mg/dL 3.5-7.2 [facility] Work Phone: [phone] Comment on above: The drugs N-Acetylcy steine and Metamizole may falsely depress this assay. Squamous epithelial cells de tection in urine sediment by light microscopyon 02-25-2022 Epithelial cells.squamous LM Ql (Urine sed) 0 SEEN /hpf 0-5 [facility] Work Phone: [phone] Urine blood detectionon 02-12 RBC Ql (U) Negative Negative [facility] Work Phone: [phone] RBC Ql (U) 0 SEEN /hpf 0-5 [facility] Work Phone: Urine clarityon 02-25-2022 Clarity (U) Clear Clear [facility] Work Phone: Urine color determinationon 02-25-2022 Color (U) Yellow Yellow [facility] Work Phone: [phone] Urine creatinine measurement (mass/volume)on 02-25-2022 Creatinine (U) [Mass/Vol] 82.80 mg/dL NO RANGE EST. [facility] Work Phone: Urine glucose detectionon Glucose Ql (U) Normal mg/dl Normal [facility] Work Phone: [phone] Urine leukocyte esterase det ection by dipstickon 02-25-2022 Leukocyte esterase Test strip Ql (U) 25 /ul Negative [facility] Work Phone: Urine pHon 02-25-2022 pH (U) 6.0 [pH] 5.0 - 8.0 [facility] Work Phone: [phone] Urine protein measurement (m ass/volume)on 02-25-2022 Protein (U) [Mass/Vol] 13.8 mg/dL 0.0-11.8 [facility] Work Phone: [phone] Urine protein/creatinine mas s ratioon 02-25-2022 Protein/Creatinine (U) [Mass ratio] 167 mg/g CRE 0-200 [facility] Work Phone: Urine sediment bacteria coun t by microscopy (number/high power field)on 02-25-2022 Bacteria LM.HPF (Urine sed) [#/Area] 0 /[HPF] None Seen [facility] Work Phone: Urine specific gravity measu rementon 02-25-2022 Specific gravity (U) [Rel density] 1.020 1.002-1.03 0 [facility] Work Phone: [phone] Urobilinogen Auto test strip Ql (U)on 02-25-2022 Urobilinogen Ql (U) Normal mg/dl Normal [facility] Work Phone: Basophil percentageon 2021 Chloride [Moles/Vol] 110 mmol/L 98-107 [facility] Work Phone: Glucose [Mass/Vol] 125 mg/dL 74-106 [facility] Work Phone: Comment on above: Fasting Glucose resu lt from 100 to 125 mg/dL suggests IMPAIRED HOMEOSTASIS per A.D.A. criteria. Potassium [Moles/Vol] 4.1 mmol/L 3.5-5.1 [facility] Work Phone: Sodium [Moles/Vol] 139 mmol/L 136-145 [facility] Work Phone: Erythrocyte sedimentation ra meredith 02-18-2022 ESR (Bld) [Velocity] 12 mm/h 0-20 [facility] Work Phone: Laboratory - Chemistry and C hemistry - challengeon 02-18-2022 CO2 [Moles/Vol] 24.0 mmol/L 21.0-32.0 [facility] Work Phone: [phone] Urea nitrogen/Creatinine [Mass ratio] 11.8 mg/mg 10-20 [facility] Work Phone: No Panel Informationon 02-18 Estimated GFR (MDRD) Amer 48 mL/min >60 [facility] Work Phone: Comment on above: GFR Calc Estimated GFR (MDRD) Non-Af Amer 40 mL/min >60 [facility] Work Phone: Comment on above: Non- GFR Calc Serum or plasma calcium you urement (mass/volume)on 02-18-2022 Calcium [Mass/Vol] 8.7 mg/dL 8.5-10.1 [facility] Work Phone: Serum or plasma creatinine m easurement (mass/volume)on 02-18-2022 Creatinine [Mass/Vol] 1.86 mg/dL 0.70-1.30 [facility] ster [facility] Work Phone: Comment on above: The validity of the calculated GFR & GFRAA in patients over 70 years has not been determined. Clinical correlation is essential. Serum or plasma urea nitroge n measurement (mass/volume)on 02-18-2022 Urea nitrogen [Mass/Vol] 22 mg/dL 7-18 [facility] Work Phone: Serum or plasma uric acid me asurement (mass/volume)on 02-18-2022 Urate [Mass/Vol] 7.2 mg/dL 3.5-7.2 [facility] Work Phone: Comment on above: The drugs N-Acetylcy steine and Metamizole may falsely depress this assay. Thin prep Papanicolaou smear with manual screeningon 02-18-2022 Thin prep Papanicolaou smear with manual screening 5 5-15 [facility] Work Phone: Absolute lymphocyte counton 01-28-2022 Lymphocytes Auto (Unsp spec) [#/Vol] 1.90 10*3/uL 0.83-4.51 [facility] Work Phone: Basophil percentageon 2021 Basophil percentage 0 SEEN /hpf 0-5 [facility] Work Phone: Basophil percentage 2.7 mg/dL 2.5-4.9 [facility]: Basophils/100 WBC (Bld) 0.5 % 0-1 [facility] Work Phone: Chloride [Moles/Vol] 110 mmol/L 98-107 [facility] Work [facility]: Eosinophils/100 WBC (Bld) 0.4 % 0-5 [facility] Work Phone: Glucose [Mass/Vol] 129 mg/dL 74-106 [facility] Work Phone: Comment on above: Fasting Glucose resu lt greater than or equal to 126 mg/dL suggests DIABETES MELLITUS per A.D.A. criteria. Neutrophils (Bld) [#/Vol] 8.0 10*3/uL 2.0-7.7 [facility] Work Phone: Neutrophils/100 WBC (Bld) 70.6 % 47-70 [facility] Work Phone: Potassium [Moles/Vol] 3.8 mmol/L 3.5-5.1 [facility] Work Phone: Sodium [Moles/Vol] 141 mmol/L 136-145 [facility] Work Phone: WBC (Bld) [#/Vol] 11.3 10*3/uL 4.4-11.0 [facility] Work Phone: [phone] Bilirubin Test strip Ql (U)o n 01-28-2022 Bilirubin Ql (U) Negative Negative [facility] Work Phone: Blood erythrocytes count (nu mber/volume)on 01-28-2022 RBC (Bld) [#/Vol] 4.23 10*6/uL 4.6-6.2 [facility] Work Phone: Blood hemoglobin measurement (mass/volume)on 01-28-2022 Hemoglobin (Bld) [Mass/Vol] 12.6 g/dL 13.0-16.5 [facility] Work Phone: Blood lymphocytes/100 leukoc yteson 01-28-2022 Lymphocytes/100 WBC (Bld) 16.8 % 19-41 [facility] Work Phone: Blood monocytes/100 leukocyt eson 01-28-2022 Monocytes/100 WBC (Bld) 10.0 % 0-10 [facility] Work Phone: [phone] Blood platelet mean volumeon 01-28-2022 Platelet mean volume (Bld) [Entitic vol] 9.3 fL 6.2-12.0 [facility] Work Phone: Determination of erythrocyte mean corpuscular volume (MCV)on 01-28-2022 MCV (RBC) [Entitic vol] 91.3 fL 80-94 [facility] Work Phone: [phone] Hematocrit Auto (Bld) [Volum e fraction]on 01-28-2022 Hematocrit (Bld) [Volume fraction] 38.6 % 40-54 [facility] Work Phone: Ketones Test strip Ql (U)on 01-28-2022 Ketones Ql (U) Negative Negative [facility] Work Phone: Laboratory - Chemistry and C hemistry - challengeon 01-28-2022 CO2 [Moles/Vol] 25.0 mmol/L 21.0-32.0 [facility] Work Phone: Urea nitrogen/Creatinine [Mass ratio] 14.7 mg/mg 10-20 [facility] Work Phone: Laboratory - Hematology and Cell countson 01-28-2022 Erythrocyte distribution width (RBC) [Entitic vol] 45.7 fL 35.1-43.9 [facility] Work Phone: [phone] Erythrocyte distribution width (RBC) [Ratio] 13.7 % 11.6-14.6 [facility] Work Phone: [phone] Immature granulocytes/100 WBC (Bld) 1.700 % 0.0-0.9 [facility] Work Phone: Comment on above: IG% - Immature Granu locytes (promyelocytes, myelocytes and metamyelocytes) > 1% indicates that a LEFT SHIFT is Present. MCH (RBC) [Entitic mass] 29.8 pg 27.0-32.0 [facility] Work Phone: Nucleated RBC/100 WBC (Bld) [Ratio] 0 % 0-5 [facility] Work Phone: MCHC Auto (RBC) [Mass/Vol]on 01-28-2022 MCHC (RBC) [Mass/Vol] 32.6 g/dL 32-36 [facility] Work Phone: Mucus LM Ql (Urine sed)on Mucus Ql (Urine sed) 0 SEEN /hpf [facility] Work Phone: Nitrite Test strip Ql (U)on 01-28-2022 Nitrite Ql (U) Negative Negative [facility] Work Phone: No Panel Informationon 01-28 Urine Microalbumin/Creatinine Ratio 77.0 mg/g CRE <30 [facility] Work Phone: Estimated GFR (MDRD) Amer 56 mL/min >60 [facility] Work Phone: Comment on above: GFR Calc Estimated GFR (MDRD) Non-Af Amer 46 mL/min >60 [facility] Work Phone: Comment on above: Non- GFR Calc Platelets bldon 01-28-2022 Platelets (Bld) [#/Vol] 240 10*3/uL 150-450 [facility] Work Phone: Protein Test strip Ql (U)on 01-28-2022 Protein Ql (U) Negative Negative [facility] Work Phone: Serum or plasma albumin you urement (mass/volume)on 01-28-2022 Albumin [Mass/Vol] 3.2 g/dL 3.2-5.0 [facility] Work Phone: Serum or plasma calcium you urement (mass/volume)on 01-28-2022 Calcium [Mass/Vol] 8.4 mg/dL 8.5-10.1 [facility] Work Phone: Serum or plasma creatinine m easurement (mass/volume)on 01-28-2022 Creatinine [Mass/Vol] 1.63 mg/dL 0.70-1.30 [facility] Work Phone: Comment on above: The validity of the calculated GFR & GFRAA in patients over 70 years has not been determined. Clinical correlation is essential. Serum or plasma urea nitroge n measurement (mass/volume)on 01-28-2022 Urea nitrogen [Mass/Vol] 24 mg/dL 7-18 [facility] Work Phone: Squamous epithelial cells de tection in urine sediment by light microscopyon 01-28-2022 Epithelial cells.squamous LM Ql (Urine sed) 0-5 SEEN /hpf 0-5 [facility] Work Phone: Thin prep Papanicolaou smear with manual screeningon 01-28-2022 Thin prep Papanicolaou smear with manual screening 28.5 mg/L NO RANGE EST. [facility] Work Phone: Urine blood detectionon 01-12 RBC Ql (U) Negative Negative [facility] Work Phone: RBC Ql (U) 0 SEEN /hpf 0-5 [facility] Work Phone: Urine clarityon 01-28-2022 Clarity (U) Sl. Cloudy Clear [facility] Work Phone: Urine color determinationon 01-28-2022 Color (U) Yellow Yellow [facility] Work Phone: Urine creatinine measurement (mass/volume)on 01-28-2022 Creatinine (U) [Mass/Vol] 37.00 mg/dL NO RANGE EST. [facility] Work Phone: Urine glucose detectionon Glucose Ql (U) Normal mg/dl Normal [facility] Work Phone: Urine leukocyte esterase det ection by dipstickon 01-28-2022 Leukocyte esterase Test strip Ql (U) Negative Negative [facility] Work Phone: Urine pHon 01-28-2022 pH (U) 7.0 [pH] 5.0 - 8.0 [facility] Work Phone: Urine sediment bacteria coun t by microscopy (number/high power field)on 01-28-2022 Bacteria LM.HPF (Urine sed) [#/Area] 0 /[HPF] None Seen [facility] Work Phone: Urine specific gravity measu rementon 01-28-2022 Specific gravity (U) [Rel density] 1.010 1.002-1.03 0 [facility] Work Phone: Urobilinogen Auto test strip Ql (U)on 01-28-2022 Urobilinogen Ql (U) Normal mg/dl Normal [facility] Work Phone: No Panel Informationon 01-25 [place] Level 0.50 mmol/L 0.60-1.20 [facility] Work Phone: Basophil percentageon 2021 Cholesterol [Mass/Vol] 140 mg/dL <200 [facility] Work Phone: Comment on above: <200 mg/dL Desirable 200-240 mg/dL Borderline >240 mg/dL High Risk Triglyceride [Mass/Vol] 247 mg/dL <199 [facility] Work Phone: Comment on above: The drugs N-Acetylcy steine and Metamizole may falsely depress this assay.Serum Triglycerides Reference Interval Normal <150 mg/dL Borderline high 150 - 199 mg/dL High 200 - 499 mg/dL Very High > or = 500 mg/dL No Panel Informationon 01-04 [place] Level 0.50 mmol/L 0.60-1.20 [facility] Work Phone: Serum or plasma cholesterol in HDL measurement (mass/volume)on 01-04-2022 Cholesterol in HDL [Mass/Vol] 34 mg/dL >40 [facility] Work Phone: Comment on above: The drugs N-Acetylcy steine and Metamizole may falsely depress this assay. Reference Range HDL <40 mg/dL Low HDL Cholesterol HDL >or= 60 mg/dL High HDL Cholesterol Serum or plasma cholesterol in VLDL measurement (mass/volume)on 01-04-2022 Cholesterol in VLDL [Mass/Vol] 49 mg/dL 5-40 [facility] Work Phone: [phone] Serum or plasma low density lipoprotein (LDL) cholesterol measurement (mass/volume)on 01-04-2022 Cholesterol in LDL [Mass/Vol] 57 mg/dL 0-130 [facility] Work Phone: [phone] No Panel Informationon 12-07 [place] Level 0.50 mmol/L 0.60-1.20 [facility] Work Phone: [phone] Absolute lymphocyte counton 12-03-2021 Lymphocytes Auto (Unsp spec) [#/Vol] 2.02 10*3/uL 0.83-4.51 [facility] Work Phone: [phone] Basophil percentageon 2021 Basophils/100 WBC (Bld) 1.1 % 0-1 [facility] Work Phone: [phone] Chloride [Moles/Vol] 108 mmol/L 98-107 [facility] Work Phone: [phone] Eosinophils/100 WBC (Bld) 2.9 % 0-5 [facility] Work Phone: [phone] Glucose [Mass/Vol] 118 mg/dL 74-106 [facility] Work Phone: [phone] Comment on above: Fasting Glucose resu lt from 100 to 125 mg/dL suggests IMPAIRED HOMEOSTASIS per A.D.A. criteria. Neutrophils (Bld) [#/Vol] 4.3 10*3/uL 2.0-7.7 [facility] Work Phone: Neutrophils/100 WBC (Bld) 57.2 % 47-70 [facility] Work Phone: Potassium [Moles/Vol] 3.9 mmol/L 3.5-5.1 [facility] Work Phone: Sodium [Moles/Vol] 140 mmol/L 136-145 [facility] Work Phone: [phone] WBC (Bld) [#/Vol] 7.5 10*3/uL 4.4-11.0 [facility] Work Phone: Bilirubin Test strip Ql (U)o n 12-03-2021 Bilirubin Ql (U) Negative Negative [facility] Work Phone: Blood erythrocytes count (nu mber/volume)on 12-03-2021 RBC (Bld) [#/Vol] 4.70 10*6/uL 4.6-6.2 [facility] Work Phone: Blood hemoglobin measurement (mass/volume)on 12-03-2021 Hemoglobin (Bld) [Mass/Vol] 13.7 g/dL 13.0-16.5 [facility] Work Phone: [phone] Blood lymphocytes/100 leukoc yteson 12-03-2021 Lymphocytes/100 WBC (Bld) 27.1 % 19-41 [facility] Work Phone: [phone] Blood monocytes/100 leukocyt eson 12-03-2021 Monocytes/100 WBC (Bld) 11.0 % 0-10 [facility] Work Phone: Blood platelet mean volumeon 12-03-2021 Platelet mean volume (Bld) [Entitic vol] 9.1 fL 6.2-12.0 [facility] Work Phone: Culture, urineon 12-03-2021 Bacteria identified Cx Nom (U) Culture exhibits no growth. [facility] Work Phone: Determination of erythrocyte mean corpuscular volume (MCV)on 12-03-2021 MCV (RBC) [Entitic vol] 88.9 fL 80-94 [facility] Work Phone: Hematocrit Auto (Bld) [Volum e fraction]on 12-03-2021 Hematocrit (Bld) [Volume fraction] 41.8 % 40-54 [facility] Work Phone: Ketones Test strip Ql (U)on 12-03-2021 Ketones Ql (U) Negative Negative [facility] Work Phone: Laboratory - Chemistry and C hemistry - challengeon 12-03-2021 CO2 [Moles/Vol] 27.0 mmol/L 21.0-32.0 [facility] Work Phone: Urea nitrogen/Creatinine [Mass ratio] 9.7 mg/mg 10-20 [facility] Work Phone: Laboratory - Hematology and Cell countson 12-03-2021 Erythrocyte distribution width (RBC) [Entitic vol] 43.4 fL 35.1-43.9 [facility] Work Phone: Erythrocyte distribution width (RBC) [Ratio] 13.2 % 11.6-14.6 [facility] Work Phone: Immature granulocytes/100 WBC (Bld) 0.700 % 0.0-0.9 [facility] Work Phone: Comment on above: IG% - Immature Granu locytes (promyelocytes, myelocytes and metamyelocytes) > 1% indicates that a LEFT SHIFT is Present. MCH (RBC) [Entitic mass] 29.1 pg 27.0-32.0 [facility] Work Phone: Nucleated RBC/100 WBC (Bld) [Ratio] 0 % 0-5 [facility] Work Phone: MCHC Auto (RBC) [Mass/Vol]on 12-03-2021 MCHC (RBC) [Mass/Vol] 32.8 g/dL 32-36 [facility] Work Phone: Nitrite Test strip Ql (U)on 12-03-2021 Nitrite Ql (U) Negative Negative [facility] Work Phone: No Panel Informationon 12-03 Estimated GFR (MDRD) Amer 43 mL/min >60 [facility] Work Phone: Comment on above: GFR Calc Estimated GFR (MDRD) Non-Af Amer 35 mL/min >60 [facility] Work Phone: Comment on above: Non- GFR Calc [place] Level 0.50 mmol/L 0.60-1.20 [facility] Work Phone: Platelets bldon 12-03-2021 Platelets (Bld) [#/Vol] 230 10*3/uL 150-450 [facility] Work Phone: Protein Test strip Ql (U)on 12-03-2021 Protein Ql (U) Negative Negative [facility] Work Phone: Serum or plasma calcium you urement (mass/volume)on 12-03-2021 Calcium [Mass/Vol] 8.9 mg/dL 8.5-10.1 [facility] Work Phone: Serum or plasma creatinine m easurement (mass/volume)on 12-03-2021 Creatinine [Mass/Vol] 2.07 mg/dL 0.70-1.30 [facility] Work Phone: Comment on above: The validity of the calculated GFR & GFRAA in patients over 70 years has not been determined. Clinical correlation is essential. Serum or plasma urea nitroge n measurement (mass/volume)on 12-03-2021 Urea nitrogen [Mass/Vol] 20 mg/dL 7-18 [facility] Work Phone: Thin prep Papanicolaou smear with manual screeningon 12-03-2021 Thin prep Papanicolaou smear with manual screening 5 5-15 [facility] Work Phone: Urine blood detectionon 11-15 RBC Ql (U) Negative Negative [facility] Work Phone: Urine clarityon 12-03-2021 Clarity (U) Clear Clear [facility] Work Phone: Urine color determinationon 12-03-2021 Color (U) Yellow Yellow [facility] Work Phone: Urine glucose detectionon Glucose Ql (U) Normal mg/dl Normal [facility] Work Phone: Urine leukocyte esterase det ection by dipstickon 12-03-2021 Leukocyte esterase Test strip Ql (U) Negative Negative [facility] Work Phone: [phone] Urine pHon 12-03-2021 pH (U) 7.0 [pH] [facility] Work Phone: Urine specific gravity measu rementon 12-03-2021 Specific gravity (U) [Rel density] 1.010 [facility] Work Phone: Urobilinogen Auto test strip Ql (U)on 12-03-2021 Urobilinogen Ql (U) Normal mg/dl Normal [facility] Work Phone: No Panel Informationon 11-09 [place] Level 0.40 mmol/L 0.60-1.20 [facility] Work Phone: Absolute lymphocyte counton 11-05-2021 Lymphocytes Auto (Unsp spec) [#/Vol] 2.12 10*3/uL 0.83-4.51 [facility] Work Phone: Basophil percentageon 2020 Chloride [Moles/Vol] 110 mmol/L 98-107 [facility] Work Phone: [phone] Eosinophils/100 WBC (Bld) 2.8 % 0-5 [facility] Work Phone: Glucose [Mass/Vol] 132 mg/dL 74-106 [facility] Work Phone: Comment on above: Fasting Glucose resu lt greater than or equal to 126 mg/dL suggests DIABETES MELLITUS per A.D.A. criteria.Please note revised GLUCOSE reference range effective 2017. Neutrophils (Bld) [#/Vol] 5.7 10*3/uL 2.0-7.7 [facility] Work Phone: Potassium [Moles/Vol] 4.0 mmol/L 3.5-5.1 [facility] Work Phone: [phone] Sodium [Moles/Vol] 143 mmol/L 136-145 [facility] Work Phone: [phone] WBC (Bld) [#/Vol] 9.3 10*3/uL 4.4-11.0 [facility] Work Phone: [phone] Basophil percentage 10-25 SEEN /hpf [facility] Work Phone: Bilirubin Test strip Ql (U)o n 12-23-2021 Bilirubin Ql (U) Negative Negative [facility] Work Phone: Blood erythrocytes count (nu mber/volume)on 11-05-2021 RBC (Bld) [#/Vol] 4.57 10*6/uL 4.6-6.2 [facility] Work Phone: [phone] Blood hemoglobin measurement (mass/volume)on 11-05-2021 Hemoglobin (Bld) [Mass/Vol] 13.4 g/dL 13.0-16.5 [facility] Work Phone: Blood lymphocytes/100 leukoc yteson 11-05-2021 Lymphocytes/100 WBC (Bld) 22.9 % 19-41 [facility] Work Phone: Blood monocytes/100 leukocyt eson 11-05-2021 Monocytes/100 WBC (Bld) 10.9 % 0-10 [facility] Work Phone: [phone] Blood platelet mean volumeon 11-05-2021 Platelet mean volume (Bld) [Entitic vol] 9.1 fL 6.2-12.0 [facility] Work Phone: Culture, urineon 11-05-2021 Bacteria identified Cx Nom (U) Streptococcus mitis/ oralis [facility] Work Phone: [phone] Determination of erythrocyte mean corpuscular volume (MCV)on 11-05-2021 MCV (RBC) [Entitic vol] 89.5 fL 80-94 [facility] Work Phone: [phone] Hematocrit Auto (Bld) [Volum e fraction]on 11-05-2021 Hematocrit (Bld) [Volume fraction] 40.9 % 40-54 [facility] Work Phone: Ketones Test strip Ql (U)on 11-05-2021 Ketones Ql (U) Negative Negative [facility] Work Phone: Laboratory - Chemistry and C hemistry - challengeon 11-05-2021 CO2 [Moles/Vol] 28.0 mmol/L 21.0-32.0 [facility] Work Phone: Urea nitrogen/Creatinine [Mass ratio] 11.6 mg/mg 10-20 [facility] Work Phone: Laboratory - Hematology and Cell countson 11-05-2021 Basophils/100 WBC (Unsp spec) 0.9 % 0-1 [facility] Work Phone: [phone] Erythrocyte distribution width (RBC) [Entitic vol] 43.5 fL 35.1-43.9 [facility] Work Phone: [phone] Erythrocyte distribution width (RBC) [Ratio] 13.3 % 11.6-14.6 [facility] Work Phone: [phone] Immature granulocytes/100 WBC (Bld) 0.600 % 0.0-0.9 [facility] Work Phone: Comment on above: IG% - Immature Granu locytes (promyelocytes, myelocytes and metamyelocytes) > 1% indicates that a LEFT SHIFT is Present. MCH (RBC) [Entitic mass] 29.3 pg 27.0-32.0 [facility] Work Phone: [phone] Neutrophils/100 WBC (Bld) 61.9 % 47-70 [facility] Work Phone: [phone] Nucleated RBC/100 WBC (Bld) [Ratio] 0 % 0-5 [facility] Work Phone: MCHC Auto (RBC) [Mass/Vol]on 11-05-2021 MCHC (RBC) [Mass/Vol] 32.8 g/dL 32-36 [facility] Work Phone: Mucus LM Ql (Urine sed)on Mucus Ql (Urine sed) 0 SEEN /hpf [facility] Work Phone: Nitrite Test strip Ql (U)on 11-05-2021 Nitrite Ql (U) Negative Negative [facility] Work Phone: No Panel Informationon 11-05 Estimated GFR (MDRD) Amer 47 mL/min >60 [facility] Work Phone: Comment on above: GFR Calc Estimated GFR (MDRD) Non-Af Amer 39 mL/min >60 [facility] Work Phone: Comment on above: Non- GFR Calc Platelets bldon 11-05-2021 Platelets (Bld) [#/Vol] 218 10*3/uL 150-450 [facility] Work Phone: Protein Test strip Ql (U)on 11-05-2021 Protein Ql (U) 15 mg/dl Negative [facility] Work Phone: Serum or plasma albumin you urement (mass/volume)on 11-05-2021 Albumin [Mass/Vol] 2.7 g/dL 3.2-5.0 [facility] Work Phone: Serum or plasma calcium you urement (mass/volume)on 11-05-2021 Calcium [Mass/Vol] 8.7 mg/dL 8.5-10.1 [facility] Work Phone: Serum or plasma creatinine m easurement (mass/volume)on 11-05-2021 Creatinine [Mass/Vol] 1.90 mg/dL 0.70-1.30 [facility] Work Phone: Comment on above: The validity of the calculated GFR & GFRAA in patients over 70 years has not been determined. Clinical correlation is essential. Serum or plasma urea nitroge n measurement (mass/volume)on 11-05-2021 Urea nitrogen [Mass/Vol] 22 mg/dL 7-18 [facility] Work Phone: Squamous epithelial cells de tection in urine sediment by light microscopyon 11-05-2021 Epithelial cells.squamous LM Ql (Urine sed) 0-5 SEEN /hpf [facility] Work Phone: Thin prep Papanicolaou smear with manual screeningon 11-05-2021 Thin prep Papanicolaou smear with manual screening 5 5-15 [facility] Work Phone: Urine blood detectionon 10-15 RBC Ql (U) Negative Negative [facility] Work Phone: RBC Ql (U) 0 SEEN /hpf [facility] Work Phone: Urine clarityon 11-05-2021 Clarity (U) Sl. Cloudy Clear [facility] Work Phone: Urine color determinationon 11-05-2021 Color (U) Yellow Yellow [facility] Work Phone: Urine creatinine measurement (mass/volume)on 11-05-2021 Creatinine (U) [Mass/Vol] 169.00 mg/dL NO RANGE EST. [facility] Work Phone: [phone] Urine glucose detectionon Glucose Ql (U) Normal mg/dl Normal [facility] Work Phone: [phone] Urine leukocyte esterase det ection by dipstickon 11-05-2021 Leukocyte esterase Test strip Ql (U) 100 /ul Negative [facility] Work Phone: Urine pHon 11-05-2021 pH (U) 6.0 [pH] [facility] Work Phone: Urine protein measurement (m ass/volume)on 11-05-2021 Protein (U) [Mass/Vol] 21.0 mg/dL 0.0-11.8 [facility] Work Phone: Urine protein/creatinine mas s ratioon 11-05-2021 Protein/Creatinine (U) [Mass ratio] 124 mg/g CRE 0-200 [facility] Work Phone: Urine sediment bacteria coun t by microscopy (number/high power field)on 11-05-2021 Bacteria LM.HPF (Urine sed) [#/Area] 0 /[HPF] None Seen [facility] Work Phone: Urine specific gravity measu rementon 11-05-2021 Specific gravity (U) [Rel density] 1.020 [facility] Work Phone: [phone] Urobilinogen Auto test strip Ql (U)on 11-05-2021 Urobilinogen Ql (U) Normal mg/dl Normal [facility] Work Phone: CBC Auto Differentialon 10-15 Erythrocyte distribution width (RBC) [Ratio] 14.5 % 11.5 - 14.5 % [place] Hematocrit (Bld) [Volume fraction] 42.1 % 40 - 52 % [place] Hemoglobin (Bld) [Mass/Vol] 13.8 g/dL 13 - 18 g/dL [place] Interpretation and review of laboratory results Abnormal [place] MCH (RBC) [Entitic mass] 28.8 pg 26 - 34 pg [place] MCHC (RBC) [Mass/Vol] 32.7 % 32 - 36 % [place] MCV (RBC) [Entitic vol] 88.1 fL 80 - 98 fL [place] Platelet mean volume (Bld) [Entitic vol] 7.9 fL 7.4 - 10.4 fL [place] Platelets (Bld) [#/Vol] 356 10*3/uL 140 - 440 10*3/uL [place] RBC (Bld) [#/Vol] 4.78 10*6/uL 4.4 - 5.9 10*6/uL [place] WBC (Bld) [#/Vol] 16.4 10*3/uL High 3.6 - 10.7 10*3/uL [place] Test Performed by [facility], [address] [place] [address] [place] Comp Panel with Mg Reflexon 11-04-2020 Calcium [Mass/Vol] 8.9 mg/dL Normal 8.4-10.4 [facility] Comment on above: Performed By: #### H EMOG, CMP3M, CRP2, LDH3, FIBGN, DDI2, APTT, FERR3 #### [facility] [address] [place] [address] ALP [Catalytic activity/Vol] 83 U/L Normal 38-126 [facility] Comment on above: Performed By: #### H EMOG, CMP3M, CRP2, LDH3, FIBGN, DDI2, APTT, FERR3 #### [facility] [address] [place] [address] ALT [Catalytic activity/Vol] 133 U/L High 0-49 [facility] Comment on above: Result Comment: The ALT test is performed by an updated assay method. Please note that the reference intervals have been changed and are now sex specific. Performed By: #### H EMOG, CMP3M, CRP2, LDH3, FIBGN, DDI2, APTT, FERR3 #### [facility] [address] [place] [address] Anion gap [Moles/Vol] 9 Normal [facility] Comment on above: Performed By: #### H EMOG, CMP3M, CRP2, LDH3, FIBGN, DDI2, APTT, FERR3 #### [facility] [address] [place] [address] AST [Catalytic activity/Vol] 39 U/L Normal 15-46 [facility] Comment on above: Performed By: #### H EMOG, CMP3M, CRP2, LDH3, FIBGN, DDI2, APTT, FERR3 #### [facility] [address] [place] [address] Bilirubin [Mass/Vol] 0.6 mg/dL Normal 0.2-1.3 [facility] Comment on above: Performed By: #### H EMOG, CMP3M, CRP2, LDH3, FIBGN, DDI2, APTT, FERR3 #### [facility] [address] [place] [address] CO2 [Moles/Vol] 20 mmol/L Low 22-30 [facility] Comment on above: Performed By: #### H EMOG, CMP3M, CRP2, LDH3, FIBGN, DDI2, APTT, FERR3 #### [facility] [address] [place] [address] Glucose [Mass/Vol] 140 mg/dL High 70-100 [facility] Comment on above: Performed By: #### H EMOG, CMP3M, CRP2, LDH3, FIBGN, DDI2, APTT, FERR3 #### [facility] [address] [place] [address] Protein [Mass/Vol] 6.1 g/dL Low 6.3-8.2 [facility] Comment on above: Performed By: #### H EMOG, CMP3M, CRP2, LDH3, FIBGN, DDI2, APTT, FERR3 #### [facility] [address] [place] [address] Urea nitrogen [Mass/Vol] 41 mg/dL High 7-20 [facility] Comment on above: Performed By: #### H EMOG, CMP3M, CRP2, LDH3, FIBGN, DDI2, APTT, FERR3 #### [facility] [address] [place] [address] Creatinine [Mass/Vol] 1.84 mg/dL High 0.52-1.25 [facility] Comment on above: Performed By: #### H EMOG, CMP3M, CRP2, LDH3, FIBGN, DDI2, APTT, FERR3 #### [facility] [address] [place] [address] GFR/1.73 sq M predicted among blacks MDRD (S/P/Bld) [Vol rate/Area] 46.0 mL/min/{1.73_m2} Abnormal >60 [facility] Comment on above: Performed By: #### H EMOG, CMP3M, CRP2, LDH3, FIBGN, DDI2, APTT, FERR3 #### [facility] [address] [place] [address] GFR/1.73 sq M predicted among non-blacks MDRD (S/P/Bld) [Vol rate/Area] 39.7 mL/min/{1.73_m2} Abnormal >60 [facility] Comment on above: Result Comment: KDIG [...] FIBGN, DDI2, APTT, FERR3 #### [facility] [address] [place] [address] Albumin [Mass/Vol] 3.4 g/dL Low 3.5-5.0 [facility] Comment on above: Performed By: #### H EMOG, CMP3M, CRP2, LDH3, FIBGN, DDI2, APTT, FERR3 #### [facility] [address] [place] [address] Chloride [Moles/Vol] 106 mmol/L Normal 98-107 [facility] Comment on above: Performed By: #### H EMOG, CMP3M, CRP2, LDH3, FIBGN, DDI2, APTT, FERR3 #### [facility] [address] [place] [address] Potassium [Moles/Vol] 4.3 mmol/L Normal 3.5-5.1 [facility] Comment on above: Performed By: #### H EMOG, CMP3M, CRP2, LDH3, FIBGN, DDI2, APTT, FERR3 #### [facility] [address] [place] [address] Sodium [Moles/Vol] 134 mmol/L Low 135-145 [facility] Comment on above: Performed By: #### H EMOG, CMP3M, CRP2, LDH3, FIBGN, DDI2, APTT, FERR3 #### [facility] [address] [place] [address] Comprehensive Metabolic Pane l w/ Reflex to MGon 11-04-2020 Albumin [Mass/Vol] 3.4 g/dL Low 3.5 - 5 g/dL [place] ALP [Catalytic activity/Vol] 83 U/L 38 - 126 U/L [place] ALT [Catalytic activity/Vol] 133 U/L High 0 - 49 U/L [place] Comment on above: The ALT test is perf ormed by an updated assay method. Please note that the reference intervals have been changed and are now sex specific. Anion gap [Moles/Vol] 9 mmol/L [place] AST [Catalytic activity/Vol] 39 U/L 15 - 46 U/L [place] Bilirubin Ql (U) 0.6 mg/dL 0.2 - 1.3 mg/dL [place] Calcium [Mass/Vol] 8.9 mg/dL 8.4 - 10. 4 mg/dL [place] Chloride [Moles/Vol] 106 mmol/L 98 - 10 7 mmol/L [place] CO2 [Moles/Vol] 20 mmol/L Low 22 - 30 mmol/L [place] Creatinine [Mass/Vol] 1.84 mg/dL High 0.52 - 1.25 mg/dL [place] EGFR IF NonAfrican [place] 39.7 mL/min Abnormal >60 [place] Comment on above: KDIGO guidelines pro [...] (S/P/Bld) [Vol rate/Area] 46.0 mL/min/{1.73_m2} Abnormal >60 [place] Glucose [Mass/Vol] 140 mg/dL High 70 - 100 mg/dL [place] Interpretation and review of laboratory results Abnormal [place] Potassium [Moles/Vol] 4.3 mmol/L 3.5 - 5.1 mmol/L [place] Protein [Mass/Vol] 6.1 g/dL Low 6.3 - 8.2 g/dL [place] Sodium [Moles/Vol] 134 mmol/L Low 135 - 145 mmol/L [place] Urea nitrogen [Mass/Vol] 41 mg/dL High 7 - 20 mg/dL [place] Test Performed by [facility], [address] [place] [address] [place] Hemogram w/ [employer] 11-04 Erythrocyte distribution width (RBC) [Ratio] 14.5 % Normal 11.5-14.5 [facility] Comment on above: Performed By: #### H EMOG, CMP3M, CRP2, LDH3, FIBGN, DDI2, APTT, FERR3 #### [facility] [address] [place] [address] Hematocrit (Bld) [Volume fraction] 42.1 % Normal 40.0-52.0 [facility] Comment on above: Performed By: #### H EMOG, CMP3M, CRP2, LDH3, FIBGN, DDI2, APTT, FERR3 #### [facility] [address] [place] [address] Hemoglobin (Bld) [Mass/Vol] 13.8 g/dL Normal 13.0-18.0 [facility] Comment on above: Performed By: #### H EMOG, CMP3M, CRP2, LDH3, FIBGN, DDI2, APTT, FERR3 #### [facility] [address] [place] [address] MCH (RBC) [Entitic mass] 28.8 pg Normal 26.0-34.0 [facility] Comment on above: Performed By: #### H EMOG, CMP3M, CRP2, LDH3, FIBGN, DDI2, APTT, FERR3 #### [facility] [address] [place] [address] MCHC (RBC) [Mass/Vol] 32.7 % Normal 32.0-36.0 [facility] Comment on above: Performed By: #### H EMOG, CMP3M, CRP2, LDH3, FIBGN, DDI2, APTT, FERR3 #### [facility] [address] [place] [address] MCV (RBC) [Entitic vol] 88.1 fL Normal 80.0-98.0 [facility] Comment on above: Performed By: #### H EMOG, CMP3M, CRP2, LDH3, FIBGN, DDI2, APTT, FERR3 #### [facility] [address] [place] [address] Platelet mean volume (Bld) [Entitic vol] 7.9 fL Normal 7.4-10.4 [facility] Comment on above: Performed By: #### H EMOG, CMP3M, CRP2, LDH3, FIBGN, DDI2, APTT, FERR3 #### [facility] [address] [place] [address] Platelets (Bld) [#/Vol] 356 10*3/uL Normal 140-440 [facility] Comment on above: Performed By: #### H EMOG, CMP3M, CRP2, LDH3, FIBGN, DDI2, APTT, FERR3 #### [facility] [address] [place] [address] RBC (Bld) [#/Vol] 4.78 10*6/uL Normal 4.40-5.90 [facility] Comment on above: Performed By: #### H EMOG, CMP3M, CRP2, LDH3, FIBGN, DDI2, APTT, FERR3 #### [facility] [address] [place] [address] WBC (Bld) [#/Vol] 16.4 10*3/uL High 3.6-10.7 [facility] Comment on above: Performed By: #### H EMOG, CMP3M, CRP2, LDH3, FIBGN, DDI2, APTT, FERR3 #### [facility] [address] [place] [address] Manual Diffon 11-04-2020 Abs Baso Cnt 0.0 10*3/uL Normal 0.0-0.2 [facility] Comment on above: Performed By: #### H EMOG, CMP3M, CRP2, LDH3, FIBGN, DDI2, APTT, FERR3 #### [facility] [address] [place] [address] Abs Eosin Cnt 0.0 10*3/uL Normal 0.0-0.5 [facility] Comment on above: Performed By: #### H EMOG, CMP3M, CRP2, LDH3, FIBGN, DDI2, APTT, FERR3 #### [facility] [address] [place] [address] Abs Lymph Cnt 1.0 10*3/uL Low 1.1-4.5 [facility] Comment on above: Performed By: #### H EMOG, CMP3M, CRP2, LDH3, FIBGN, DDI2, APTT, FERR3 #### [facility] [address] [place] [address] Abs Monocyte Cnt 1.3 10*3/uL High 0.2-1.1 [facility] Comment on above: Performed By: #### H EMOG, CMP3M, CRP2, LDH3, FIBGN, DDI2, APTT, FERR3 #### [facility] [address] [place] [address] Abs Neutrophile Cnt 13.1 10*3/uL High 2.2-8.2 [facility] Comment on above: Performed By: #### H EMOG, CMP3M, CRP2, LDH3, FIBGN, DDI2, APTT, FERR3 #### [facility] [address] [place] [address] Anisocytosis Ql (Bld) Slight Normal [facility] Comment on above: Performed By: #### H EMOG, CMP3M, CRP2, LDH3, FIBGN, DDI2, APTT, FERR3 #### [facility] [address] [place] [address] Bands 2 % Normal 0-3 [facility] Comment on above: Performed By: #### H EMOG, CMP3M, CRP2, LDH3, FIBGN, DDI2, APTT, FERR3 #### [facility] [address] [place] [address] Basophils 0 % Normal 0-2 [facility] Comment on above: Performed By: #### H EMOG, CMP3M, CRP2, LDH3, FIBGN, DDI2, APTT, FERR3 #### [facility] [address] [place] [address] Danya Cells Slight Normal [facility] Comment on above: Performed By: #### H EMOG, CMP3M, CRP2, LDH3, FIBGN, DDI2, APTT, FERR3 #### [facility] [address] [place] [address] Cells counted 100 Normal [facility] Comment on above: Performed By: #### H EMOG, CMP3M, CRP2, LDH3, FIBGN, DDI2, APTT, FERR3 #### [facility] [address] [place] [address] Eosinophils 0 % Low 1-6 [facility] Comment on above: Performed By: #### H EMOG, CMP3M, CRP2, LDH3, FIBGN, DDI2, APTT, FERR3 #### [facility] [address] [place] [address] Lymphocytes 6 % Low 20-40 [facility] Comment on above: Performed By: #### H EMOG, CMP3M, CRP2, LDH3, FIBGN, DDI2, APTT, FERR3 #### [facility] [address] [place] [address] Metamyelocytes 5 % Abnormal <1 [facility] Comment on above: Performed By: #### H EMOG, CMP3M, CRP2, LDH3, FIBGN, DDI2, APTT, FERR3 #### [facility] [address] [place] [address] Monocytes 8 % Normal 2-10 [facility] Comment on above: Performed By: #### H EMOG, CMP3M, CRP2, LDH3, FIBGN, DDI2, APTT, FERR3 #### [facility] [address] [place] [address] Myelocytes 1 % Abnormal <1 [facility] Comment on above: Performed By: #### H EMOG, CMP3M, CRP2, LDH3, FIBGN, DDI2, APTT, FERR3 #### [facility] [address] [place] [address] Poikilocytosis Slight Normal [facility] Comment on above: Performed By: #### H EMOG, CMP3M, CRP2, LDH3, FIBGN, DDI2, APTT, FERR3 #### [facility] [address] [place] [address] RBC morphology finding Nom (Bld) ABNORMAL Normal [facility] Comment on above: Performed By: #### H EMOG, CMP3M, CRP2, LDH3, FIBGN, DDI2, APTT, FERR3 #### [facility] [address] [place] [address] Seg Neutrophils 78 % Normal 40-80 [facility] Comment on above: Performed By: #### H EMOG, CMP3M, CRP2, LDH3, FIBGN, DDI2, APTT, FERR3 #### [facility] [address] [place] [address] Manual Differentialon 2019 Absolute Baso # 0.0 10*3/uL 0 - 0.2 10*3/uL [place] Absolute Eos # 0.0 10*3/uL 0 - 0.5 10*3/uL [place] Absolute Lymph # 1.0 10*3/uL Low 1.1 - 4.5 10*3/uL [facility], [place] Absolute [place] # 1.3 10*3/uL High 0.2 - 1.1 10*3/uL [place] Absolute Neut # 13.1 10*3/uL High 2.2 - 8.2 10*3/uL [facility], [place] Anisocytosis Ql (Bld) Slight [facility], [place] Bands 2 % 0 - 3 % [facility], [place] Basophils 0 % 0 - 2 % [facility], [place] Danya Cells Slight [facility], [place] Eosinophils 0 % Low 1 - 6 % [facility], [place] Interpretation and review of laboratory results Abnormal [place] Lymphocytes 6 % Low 20 - 40 % [place] Metamyelocytes 5 % Abnormal <1 [place] Monocytes 8 % 2 - 10 % [place] Myelocytes 1 % Abnormal <1 [place] Poikilocytes Slight [place] RBC morphology finding Nom (Bld) ABNORMAL [place] Seg Neutrophils 78 % 40 - 80 % [place] TOTAL CELLS COUNTED 100 [place] Test Performed by [facility], [address], [place], [place] [address] [place] Add On Lab Teston 11-03-2020 Sodium [Moles/Vol] Accepted [place] Comment on above: Specimen available & acceptable for analysis. Test Performed by [facility], [address], [place], [place] [address] [place] Add on test from HISon 11-03 Add on test from HIS Accepted Normal [facility] Comment on above: Result Comment: Spec imen available & acceptable for analysis. Performed By: #### H EMOG, CMP3M, CRP2, LDH3, FIBGN, DDI2, APTT, FERR3 #### [facility] [address] [place] [address] CBC Auto Differentialon 10-15 Erythrocyte distribution width (RBC) [Ratio] 14.3 % 11.5 - 14.5 % [place] Hematocrit (Bld) [Volume fraction] 39.0 % Low 40 - 52 % [place] Hemoglobin (Bld) [Mass/Vol] 12.8 g/dL Low 13 - 18 g/dL [place] Interpretation and review of laboratory results Abnormal [place] MCH (RBC) [Entitic mass] 28.7 pg 26 - 34 pg [place] MCHC (RBC) [Mass/Vol] 32.8 % 32 - 36 % [place] MCV (RBC) [Entitic vol] 87.6 fL 80 - 98 fL [place] Platelet mean volume (Bld) [Entitic vol] 7.5 fL 7.4 - 10.4 fL [place] Platelets (Bld) [#/Vol] 332 10*3/uL 140 - 440 10*3/uL [place] RBC (Bld) [#/Vol] 4.45 10*6/uL 4.4 - 5.9 10*6/uL [place] WBC (Bld) [#/Vol] 15.6 10*3/uL High 3.6 - 10.7 10*3/uL [place] Test Performed by [facility], [address], [place], [place] [address] [place] CR Chest PA/LATon 11-03-2020 CR Chest PA/LAT Patient Name: REGGIE WILSON Diagnostic Radiology ACCESSION EXAM DATE/TIME PROCEDURE ORDERING PROVIDER [id number] 11/03/2020 10:20 EST CR Chest PA and LAT MD DIAZ IMOLA KINGA CPT code 02980 Reason For Exam (CR Chest PA and [...] and Time: 11/03/2020 10:59 Normal [facility] Comp Panel with Mg Reflexon 11-03-2020 Calcium [Mass/Vol] 9.0 mg/dL Normal 8.4-10.4 [facility] Comment on above: Performed By: #### H EMOG, CMP3M, CRP2, LDH3, FIBGN, DDI2, APTT, FERR3 #### [facility] [address] [place] [address] Anion gap [Moles/Vol] 5 Normal [facility] Comment on above: Performed By: #### H EMOG, CMP3M, CRP2, LDH3, FIBGN, DDI2, APTT, FERR3 #### [facility] [address] [place] [address] Bilirubin [Mass/Vol] 0.7 mg/dL Normal 0.2-1.3 [facility] Comment on above: Performed By: #### H EMOG, CMP3M, CRP2, LDH3, FIBGN, DDI2, APTT, FERR3 #### [facility] [address] [place] [address] Creatinine [Mass/Vol] 2.08 mg/dL High 0.52-1.25 [facility] Comment on above: Performed By: #### H EMOG, CMP3M, CRP2, LDH3, FIBGN, DDI2, APTT, FERR3 #### [facility] [address] [place] [address] GFR/1.73 sq M predicted among blacks MDRD (S/P/Bld) [Vol rate/Area] 39.6 mL/min/{1.73_m2} Abnormal >60 [facility] Comment on above: Performed By: #### H EMOG, CMP3M, CRP2, LDH3, FIBGN, DDI2, APTT, FERR3 #### [facility] [address] [place] [address] GFR/1.73 sq M predicted among non-blacks MDRD (S/P/Bld) [Vol rate/Area] 34.2 mL/min/{1.73_m2} Abnormal >60 [facility] Comment on above: Result Comment: KDIG [...] FIBGN, DDI2, APTT, FERR3 #### [facility] [address] [place] [address] Albumin [Mass/Vol] 3.4 g/dL Low 3.5-5.0 [facility] Comment on above: Performed By: #### H EMOG, CMP3M, CRP2, LDH3, FIBGN, DDI2, APTT, FERR3 #### [facility] [address] [place] [address] Chloride [Moles/Vol] 107 mmol/L Normal 98-107 [facility] Comment on above: Performed By: #### H EMOG, CMP3M, CRP2, LDH3, FIBGN, DDI2, APTT, FERR3 #### [facility] [address] [place] [address] Potassium [Moles/Vol] 3.8 mmol/L Normal 3.5-5.1 [facility] Comment on above: Performed By: #### H EMOG, CMP3M, CRP2, LDH3, FIBGN, DDI2, APTT, FERR3 #### [facility] [address] [place] [address] Sodium [Moles/Vol] 134 mmol/L Low 135-145 [facility] Comment on above: Performed By: #### H EMOG, CMP3M, CRP2, LDH3, FIBGN, DDI2, APTT, FERR3 #### [facility] [address] [place] [address] ALP [Catalytic activity/Vol] 83 U/L Normal 38-126 [place] Comment on above: Performed By: #### H EMOG, CMP3M, CRP2, LDH3, FIBGN, DDI2, APTT, FERR3 #### [facility] [address] [place] [address] ALT [Catalytic activity/Vol] 175 U/L High 0-49 [place] Comment on above: Result Comment: The ALT test is performed by an updated assay method. Please note that the reference intervals have been changed and are now sex specific. Performed By: #### H EMOG, CMP3M, CRP2, LDH3, FIBGN, DDI2, APTT, FERR3 #### [facility] [address] [place] [address] The ALT test is perf ormed by an updated assay method. Please note that the reference intervals have been changed and are now sex specific. AST [Catalytic activity/Vol] 63 U/L High 15-46 [place] Comment on above: Performed By: #### H EMOG, CMP3M, CRP2, LDH3, FIBGN, DDI2, APTT, FERR3 #### [facility] [address] [place] [address] CO2 [Moles/Vol] 21 mmol/L Low 22-30 [place] Comment on above: Performed By: #### H EMOG, CMP3M, CRP2, LDH3, FIBGN, DDI2, APTT, FERR3 #### [facility] [address] [place] [address] Glucose [Mass/Vol] 139 mg/dL High 70-100 [place] Comment on above: Performed By: #### H EMOG, CMP3M, CRP2, LDH3, FIBGN, DDI2, APTT, FERR3 #### [facility] [address] [place] [address] Protein [Mass/Vol] 5.9 g/dL Low 6.3-8.2 [place] Comment on above: Performed By: #### H EMOG, CMP3M, CRP2, LDH3, FIBGN, DDI2, APTT, FERR3 #### [facility] [address] [place] [address] Urea nitrogen [Mass/Vol] 43 mg/dL High 7-20 [place] Comment on above: Performed By: #### H EMOG, CMP3M, CRP2, LDH3, FIBGN, DDI2, APTT, FERR3 #### [facility] [address] [place] [address] Comprehensive Metabolic Pane l w/ Reflex to MGon 11-03-2020 Albumin [Mass/Vol] 3.4 g/dL Low 3.5 - 5 g/dL [place] Anion gap [Moles/Vol] 5 mmol/L [place] Bilirubin Ql (U) 0.7 mg/dL 0.2 - 1.3 mg/dL [place] Calcium [Mass/Vol] 9.0 mg/dL 8.4 - 10. 4 mg/dL [place] Chloride [Moles/Vol] 107 mmol/L 98 - 10 7 mmol/L [place] Creatinine [Mass/Vol] 2.08 mg/dL High 0.52 - 1.25 mg/dL [place] EGFR IF NonAfrican [place] 34.2 mL/min Abnormal >60 [place] Comment on above: KDIGO guidelines pro [...] (S/P/Bld) [Vol rate/Area] 39.6 mL/min/{1.73_m2} Abnormal >60 [place] Interpretation and review of laboratory results Abnormal [place] Potassium [Moles/Vol] 3.8 mmol/L 3.5 - 5.1 mmol/L [place] Sodium [Moles/Vol] 134 mmol/L Low 135 - 145 mmol/L [place] Test Performed by [facility], [address] [place] [address] [place] Hemogram w/ Autodiffon 11-03 Erythrocyte distribution width (RBC) [Ratio] 14.3 % Normal 11.5-14.5 [facility] Comment on above: Performed By: #### H EMOG, CMP3M, CRP2, LDH3, FIBGN, DDI2, APTT, FERR3 #### [facility] [address] [place] [address] Hematocrit (Bld) [Volume fraction] 39.0 % Low 40.0-52.0 [facility] Comment on above: Performed By: #### H EMOG, CMP3M, CRP2, LDH3, FIBGN, DDI2, APTT, FERR3 #### [facility] [address] [place] [address] Hemoglobin (Bld) [Mass/Vol] 12.8 g/dL Low 13.0-18.0 [facility] Comment on above: Performed By: #### H EMOG, CMP3M, CRP2, LDH3, FIBGN, DDI2, APTT, FERR3 #### [facility] [address] [place] [address] MCH (RBC) [Entitic mass] 28.7 pg Normal 26.0-34.0 [facility] Comment on above: Performed By: #### H EMOG, CMP3M, CRP2, LDH3, FIBGN, DDI2, APTT, FERR3 #### [facility] [address] [place] [address] MCHC (RBC) [Mass/Vol] 32.8 % Normal 32.0-36.0 [facility] Comment on above: Performed By: #### H EMOG, CMP3M, CRP2, LDH3, FIBGN, DDI2, APTT, FERR3 #### [facility] [address] [place] [address] MCV (RBC) [Entitic vol] 87.6 fL Normal 80.0-98.0 [facility] Comment on above: Performed By: #### H EMOG, CMP3M, CRP2, LDH3, FIBGN, DDI2, APTT, FERR3 #### [facility] [address] [place] [address] Platelet mean volume (Bld) [Entitic vol] 7.5 fL Normal 7.4-10.4 [facility] Comment on above: Performed By: #### H EMOG, CMP3M, CRP2, LDH3, FIBGN, DDI2, APTT, FERR3 #### [facility] [address] [place] [address] Platelets (Bld) [#/Vol] 332 10*3/uL Normal 140-440 [facility] Comment on above: Performed By: #### H EMOG, CMP3M, CRP2, LDH3, FIBGN, DDI2, APTT, FERR3 #### [facility] [address] [place] [address] RBC (Bld) [#/Vol] 4.45 10*6/uL Normal 4.40-5.90 [facility] Comment on above: Performed By: #### H EMOG, CMP3M, CRP2, LDH3, FIBGN, DDI2, APTT, FERR3 #### [facility] [address] [place] [address] WBC (Bld) [#/Vol] 15.6 10*3/uL High 3.6-10.7 [facility] Comment on above: Performed By: #### H EMOG, CMP3M, CRP2, LDH3, FIBGN, DDI2, APTT, FERR3 #### [facility] [address] [place] [address] Manual Diffon 11-03-2020 Abs Lymph Cnt 2.0 10*3/uL Normal 1.1-4.5 [facility] Comment on above: Performed By: #### H EMOG, CMP3M, CRP2, LDH3, FIBGN, DDI2, APTT, FERR3 #### [facility] [address] [place] [address] Abs Monocyte Cnt 2.2 10*3/uL High 0.2-1.1 [facility] Comment on above: Performed By: #### H EMOG, CMP3M, CRP2, LDH3, FIBGN, DDI2, APTT, FERR3 #### [facility] [address] [place] [address] Abs Neutrophile Cnt 11.4 10*3/uL High 2.2-8.2 [facility] Comment on above: Performed By: #### H EMOG, CMP3M, CRP2, LDH3, FIBGN, DDI2, APTT, FERR3 #### [facility] [address] [place] [address] Anisocytosis Ql (Bld) Slight Normal [facility] Comment on above: Performed By: #### H EMOG, CMP3M, CRP2, LDH3, FIBGN, DDI2, APTT, FERR3 #### [facility] [address] [place] [address] Bands 4 % High 0-3 [facility] Comment on above: Performed By: #### H EMOG, CMP3M, CRP2, LDH3, FIBGN, DDI2, APTT, FERR3 #### [facility] [address] [place] [address] Harrington Cells Slight Normal [facility] Comment on above: Performed By: #### H EMOG, CMP3M, CRP2, LDH3, FIBGN, DDI2, APTT, FERR3 #### [facility] [address] [place] [address] Lymphocytes 13 % Low 20-40 [facility] Comment on above: Performed By: #### H EMOG, CMP3M, CRP2, LDH3, FIBGN, DDI2, APTT, FERR3 #### [facility] [address] [place] [address] Monocytes 14 % High 2-10 [facility] Comment on above: Performed By: #### H EMOG, CMP3M, CRP2, LDH3, FIBGN, DDI2, APTT, FERR3 #### [facility] [address] [place] [address] NRBC 1 /100{WBCs} High -1-0 [facility] Comment on above: Result Comment: Newb orn (<60 days) 1-10 Adult <1 Performed By: #### H EMOG, CMP3M, CRP2, LDH3, FIBGN, DDI2, APTT, FERR3 #### [facility] [address] [place] [address] RBC morphology finding Nom (Bld) ABNORMAL Normal [facility] Comment on above: Performed By: #### H EMOG, CMP3M, CRP2, LDH3, FIBGN, DDI2, APTT, FERR3 #### [facility] [address] [place] [address] Seg Neutrophils 69 % Normal 40-80 [facility] Comment on above: Performed By: #### H EMOG, CMP3M, CRP2, LDH3, FIBGN, DDI2, APTT, FERR3 #### [facility] [address] [place] [address] Tear Drop Forms Slight Normal [facility] Comment on above: Performed By: #### H EMOG, CMP3M, CRP2, LDH3, FIBGN, DDI2, APTT, FERR3 #### [facility] [address] [place] [address] Abs Baso Cnt 0.0 10*3/uL Normal 0.0-0.2 [facility] Comment on above: Performed By: #### H EMOG, CMP3M, CRP2, LDH3, FIBGN, DDI2, APTT, FERR3 #### [facility] [address] [place] [address] Abs Eosin Cnt 0.0 10*3/uL Normal 0.0-0.5 [facility] Comment on above: Performed By: #### H EMOG, CMP3M, CRP2, LDH3, FIBGN, DDI2, APTT, FERR3 #### [facility] [address] [place] [address] Basophils 0 % Normal 0-2 [facility] Comment on above: Performed By: #### H EMOG, CMP3M, CRP2, LDH3, FIBGN, DDI2, APTT, FERR3 #### [facility] [address] [place] [address] Cells counted 100 Normal [facility] Comment on above: Performed By: #### H EMOG, CMP3M, CRP2, LDH3, FIBGN, DDI2, APTT, FERR3 #### [facility] [address] [place] [address] Eosinophils 0 % Low 1-6 [facility] Comment on above: Performed By: #### H EMOG, CMP3M, CRP2, LDH3, FIBGN, DDI2, APTT, FERR3 #### [facility] [address] [place] [address] Manual Differentialon 2019 Absolute Baso # 0.0 10*3/uL 0 - 0.2 10*3/uL [facility], [place] Absolute Eos # 0.0 10*3/uL 0 - 0.5 10*3/uL [place] Absolute Lymph # 2.0 10*3/uL 1.1 - 4.5 10*3/uL [facility], [place] Absolute [place] # 2.2 10*3/uL High 0.2 - 1.1 10*3/uL [facility], [place] Absolute Neut # 11.4 10*3/uL High 2.2 - 8.2 10*3/uL [facility], [place] Anisocytosis Ql (Bld) Slight [facility], [place] Bands 4 % High 0 - 3 % [facility], [place] Basophils 0 % 0 - 2 % [facility], [place] Danya Cells Slight [place] Eosinophils 0 % Low 1 - 6 % [place] Interpretation and review of laboratory results Abnormal [place] Lymphocytes 13 % Low 20 - 40 % [facility], [place] Monocytes 14 % High 2 - 10 % [facility], [place] nRBC 1 /100{WBCs} High -1 - 0 /100{WBCs} [place] Comment on above: Council (<60 days) 1 -10 Adult <1 RBC morphology finding Nom (Bld) ABNORMAL [place] Seg Neutrophils 69 % 40 - 80 % [facility], [place] Tear Drop Cells Slight [facility], [place] TOTAL CELLS COUNTED 100 [place] Test Performed by [facility], [address] [place] [address] [place] Procalcitoninon 11-03-2020 Procalcitonin < 0.10 Normal <0.10 [facility] Comment on above: Performed By: #### H EMOG, CMP3M, CRP2, LDH3, FIBGN, DDI2, APTT, FERR3 #### [facility] [address] [place] [address] Procalcitonin <0.10 <0.10 ng/mL [place] Sodium [Moles/Vol] See Below [place] Comment on above: PCT <0.50 = Low risk of severe sepsis and/or septic shock. PCT >2.00 = High risk of severe sepsis and/or septic shock. Test Performed by [facility], [address] [place] [id number] [place], [place] Interpretation See Below Normal [facility] Comment on above: Result Comment: PCT <0.50 = Low risk of severe sepsis and/or septic shock. PCT >2.00 = High risk of severe sepsis and/or septic shock. Performed By: #### H EMOG, CMP3M, CRP2, LDH3, FIBGN, DDI2, APTT, FERR3 #### [facility] [address] [place] [address] XR CHEST (2 VW)on 11-03-2020 Michel, [facility] Incoming Radiology Results From [facility] - 11/03/2020 10:59 AM EST Patient Name: REGGIE LEÓN Diagnostic Radiology ACCESSION EXAM DATE/TIME PROCEDURE ORDERING PROVIDER [id number] 11/03/2020 10:20 EST CR Chest PA & LAT MD EMILY, FARRUKH MCCORMICK CPT code 29730 Reason For Exam (CR Chest PA & [...] JEFFREY Transcribed Date and Time: 11/03/2020 10:59 [place], [place] Patient Name: [id number] Radiology ACCESSION EXAM DATE/TIME PROCEDURE ORDERING PROVIDER [id number] 11/03/2020 10:20 EST CR Chest PA & LAT MD DIAZ IMOLA KINGA CPT code 14244 Reason For Exam (CR Chest PA & [...] JEFFREY Transcribed Date and Time: 11/03/2020 10:59 [place] APTTon 11-02-2020 aPTT Coag (Bld) [Time] 30.4 s Normal 20.0-30.5 [facility] Comment on above: Result Comment: NOTE : The therapeutic time for Heparin anticoagulation, based on Xa activity inhibition, is an APTT of 46-80 seconds. Performed By: #### H EMOG, CMP3M, CRP2, LDH3, FIBGN, DDI2, APTT, FERR3 #### [facility] [address] [place] [address] aPTT Coag (Bld) [Time] 30.4 s 20 - 30.5 s [place] Comment on above: NOTE: The therapeuti c time for Heparin anticoagulation, based on Xa activity inhibition, is an APTT of 46-80 seconds. C-Reactive Proteinon 020 CRP [Mass/Vol] 10.2 mg/L High 0.0-6.0 [facility] Comment on above: Result Comment: . Performed By: #### H EMOG, CMP3M, CRP2, LDH3, FIBGN, DDI2, APTT, FERR3 #### [facility] [address] [place] [address] CRP [Mass/Vol] 10.2 mg/L High 0 - 6 mg/L [place] Comment on above: . CBCon 11-02-2020 Erythrocyte distribution width (RBC) [Ratio] 14.2 % 11.5 - 14.5 % [place] Hematocrit (Bld) [Volume fraction] 39.5 % Low 40 - 52 % [place] Hemoglobin (Bld) [Mass/Vol] 13.2 g/dL 13 - 18 g/dL [place] Interpretation and review of laboratory results Abnormal [place] MCH (RBC) [Entitic mass] 29.4 pg 26 - 34 pg [place] MCHC (RBC) [Mass/Vol] 33.5 % 32 - 36 % [place] MCV (RBC) [Entitic vol] 87.8 fL 80 - 98 fL [place] Platelet mean volume (Bld) [Entitic vol] 7.6 fL 7.4 - 10.4 fL [place] Platelets (Bld) [#/Vol] 340 10*3/uL 140 - 440 10*3/uL [place] RBC (Bld) [#/Vol] 4.49 10*6/uL 4.4 - 5.9 10*6/uL [place] WBC (Bld) [#/Vol] 13.0 10*3/uL High 3.6 - 10.7 10*3/uL [place] Test Performed by [facility], [address], [place], [place] [address] [facility], [place] Comp Panel with Mg Reflexon 11-02-2020 ALT [Catalytic activity/Vol] 198 U/L High 0-49 [facility] Comment on above: Result Comment: The ALT test is performed by an updated assay method. Please note that the reference intervals have been changed and are now sex specific. Performed By: #### H EMOG, CMP3M, CRP2, LDH3, FIBGN, DDI2, APTT, FERR3 #### [facility] [address] [place] [address] Calcium [Mass/Vol] 8.8 mg/dL Normal 8.4-10.4 [facility] Comment on above: Performed By: #### H EMOG, CMP3M, CRP2, LDH3, FIBGN, DDI2, APTT, FERR3 #### [facility] [address] [place] [address] Glucose [Mass/Vol] 135 mg/dL High 70-100 [facility] Comment on above: Performed By: #### H EMOG, CMP3M, CRP2, LDH3, FIBGN, DDI2, APTT, FERR3 #### [facility] [address] [place] [address] ALP [Catalytic activity/Vol] 85 U/L Normal 38-126 [facility] Comment on above: Performed By: #### H EMOG, CMP3M, CRP2, LDH3, FIBGN, DDI2, APTT, FERR3 #### [facility] [address] [place] [address] Anion gap [Moles/Vol] 9 Normal [facility] Comment on above: Performed By: #### H EMOG, CMP3M, CRP2, LDH3, FIBGN, DDI2, APTT, FERR3 #### [facility] [address] [place] [address] AST [Catalytic activity/Vol] 104 U/L High 15-46 [facility] Comment on above: Performed By: #### H EMOG, CMP3M, CRP2, LDH3, FIBGN, DDI2, APTT, FERR3 #### [facility] [address] [place] [address] Bilirubin [Mass/Vol] 0.7 mg/dL Normal 0.2-1.3 [facility] Comment on above: Performed By: #### H EMOG, CMP3M, CRP2, LDH3, FIBGN, DDI2, APTT, FERR3 #### [facility] [address] [place] [address] CO2 [Moles/Vol] 18 mmol/L Low 22-30 [facility] Comment on above: Performed By: #### H EMOG, CMP3M, CRP2, LDH3, FIBGN, DDI2, APTT, FERR3 #### [facility] [address] [place] [address] Creatinine [Mass/Vol] 1.89 mg/dL High 0.52-1.25 [facility] Comment on above: Performed By: #### H EMOG, CMP3M, CRP2, LDH3, FIBGN, DDI2, APTT, FERR3 #### [facility] [address] [place] [address] GFR/1.73 sq M predicted among blacks MDRD (S/P/Bld) [Vol rate/Area] 44.5 mL/min/{1.73_m2} Abnormal >60 [facility] Comment on above: Performed By: #### H EMOG, CMP3M, CRP2, LDH3, FIBGN, DDI2, APTT, FERR3 #### [facility] [address] [place] [address] GFR/1.73 sq M predicted among non-blacks MDRD (S/P/Bld) [Vol rate/Area] 38.4 mL/min/{1.73_m2} Abnormal >60 [facility] Comment on above: Result Comment: KDIG [...] FIBGN, DDI2, APTT, FERR3 #### [facility] [address] [place] [address] Protein [Mass/Vol] 6.1 g/dL Low 6.3-8.2 [facility] Comment on above: Performed By: #### H EMOG, CMP3M, CRP2, LDH3, FIBGN, DDI2, APTT, FERR3 #### [facility] [address] [place] [address] Urea nitrogen [Mass/Vol] 35 mg/dL High 7-20 [facility] Comment on above: Performed By: #### H EMOG, CMP3M, CRP2, LDH3, FIBGN, DDI2, APTT, FERR3 #### [facility] [address] [place] [address] Potassium [Moles/Vol] 4.3 mmol/L Normal 3.5-5.1 [facility] Comment on above: Performed By: #### H EMOG, CMP3M, CRP2, LDH3, FIBGN, DDI2, APTT, FERR3 #### [facility] [address] [place] [address] Albumin [Mass/Vol] 3.3 g/dL Low 3.5-5.0 [facility] Comment on above: Performed By: #### H EMOG, CMP3M, CRP2, LDH3, FIBGN, DDI2, APTT, FERR3 #### [facility] [address] [place] [address] Chloride [Moles/Vol] 110 mmol/L High 98-107 [facility] Comment on above: Performed By: #### H EMOG, CMP3M, CRP2, LDH3, FIBGN, DDI2, APTT, FERR3 #### [facility] [address] [place] [address] Sodium [Moles/Vol] 137 mmol/L Normal 135-145 [facility] Comment on above: Performed By: #### H EMOG, CMP3M, CRP2, LDH3, FIBGN, DDI2, APTT, FERR3 #### [facility] [address] [place] [address] Comprehensive Metabolic Pane l w/ Reflex to MGon 11-02-2020 Albumin [Mass/Vol] 3.3 g/dL Low 3.5 - 5 g/dL [place] ALP [Catalytic activity/Vol] 85 U/L 38 - 126 U/L [place] ALT [Catalytic activity/Vol] 198 U/L High 0 - 49 U/L [place] Comment on above: The ALT test is perf ormed by an updated assay method. Please note that the reference intervals have been changed and are now sex specific. Anion gap [Moles/Vol] 9 mmol/L [place] AST [Catalytic activity/Vol] 104 U/L High 15 - 46 U/L [place] Bilirubin Ql (U) 0.7 mg/dL 0.2 - 1.3 mg/dL [place] Calcium [Mass/Vol] 8.8 mg/dL 8.4 - 10. 4 mg/dL [place] Chloride [Moles/Vol] 110 mmol/L High 98 - 10 7 mmol/L [place] CO2 [Moles/Vol] 18 mmol/L Low 22 - 30 mmol/L [place] Creatinine [Mass/Vol] 1.89 mg/dL High 0.52 - 1.25 mg/dL [place] EGFR IF NonAfrican [place] 38.4 mL/min Abnormal >60 [place] Comment on above: KDIGO guidelines pro [...] (S/P/Bld) [Vol rate/Area] 44.5 mL/min/{1.73_m2} Abnormal >60 [facility], [place] Glucose [Mass/Vol] 135 mg/dL High 70 - 100 mg/dL [facility], [place] Potassium [Moles/Vol] 4.3 mmol/L 3.5 - 5.1 mmol/L [facility], [place] Protein [Mass/Vol] 6.1 g/dL Low 6.3 - 8.2 g/dL [place] Sodium [Moles/Vol] 137 mmol/L 135 - 145 mmol/L [facility], [place] Urea nitrogen [Mass/Vol] 35 mg/dL High 7 - 20 mg/dL [place] D-Dimer, Innovanceon 11-02-2 020 D-Dimer, [employer] 0.83 mg/L High 0.00-0.50 [facility] Comment on above: Result Comment: Inno quach D-Dimer values of <0.50 mg/L FEU can be used in combination with a pre-test probability model (e.g. Well's) to exclude pulmonary embolism (PE) disease, as well as an aid in the diagnosis of deep vein thrombosis (DVT). Performed By: #### H EMOG, CMP3M, CRP2, LDH3, FIBGN, DDI2, APTT, FERR3 #### [employer] [address] [place] [address] D-Dimer, Quantitativeon 12-2 D-Dimer, Quant 0.83 mg/L High 0 - 0.5 mg/L [place] Comment on above: [employer] D-Dimer va lues of <0.50 mg/L FEU can be used in combination with a pre-test probability model (e.g. Well's) to exclude pulmonary embolism (PE) disease, as well as an aid in the diagnosis of deep vein thrombosis (DVT). Interpretation and review of laboratory results Abnormal [place] Ferritinon 11-02-2020 Ferritin [Mass/Vol] 938 ng/mL High 18-464 [facility] Comment on above: Performed By: #### H EMOG, CMP3M, CRP2, LDH3, FIBGN, DDI2, APTT, FERR3 #### [facility] [address] [place] [address] Ferritin [Mass/Vol] 938 ng/mL High 18 - 464 ng/mL [place], [place] Interpretation and review of laboratory results Abnormal [place], [place] Test Performed by [facility], [address] [place], [place] [address] [place], [place] Fibrinogenon 11-02-2020 Fibrinogen 373 mg/dL Normal 200-400 [facility] Comment on above: Performed By: #### H EMOG, CMP3M, CRP2, LDH3, FIBGN, DDI2, APTT, FERR3 #### [facility] [address] [place] [address] Fibrinogen 373 mg/dL 200 - 400 mg/dL [place], [place] Hemogramon 11-02-2020 Erythrocyte distribution width (RBC) [Ratio] 14.2 % Normal 11.5-14.5 [facility] Comment on above: Performed By: #### H EMOG, CMP3M, CRP2, LDH3, FIBGN, DDI2, APTT, FERR3 #### [facility] [address] [place] [address] Hematocrit (Bld) [Volume fraction] 39.5 % Low 40.0-52.0 [facility] Comment on above: Performed By: #### H EMOG, CMP3M, CRP2, LDH3, FIBGN, DDI2, APTT, FERR3 #### [facility] [address] [place] [address] Hemoglobin (Bld) [Mass/Vol] 13.2 g/dL Normal 13.0-18.0 [facility] Comment on above: Performed By: #### H EMOG, CMP3M, CRP2, LDH3, FIBGN, DDI2, APTT, FERR3 #### [facility] [address] [place] [address] MCH (RBC) [Entitic mass] 29.4 pg Normal 26.0-34.0 [facility] Comment on above: Performed By: #### H EMOG, CMP3M, CRP2, LDH3, FIBGN, DDI2, APTT, FERR3 #### [facility] [address] [place] [address] MCHC (RBC) [Mass/Vol] 33.5 % Normal 32.0-36.0 [facility] Comment on above: Performed By: #### H EMOG, CMP3M, CRP2, LDH3, FIBGN, DDI2, APTT, FERR3 #### [facility] [address] [place] [address] MCV (RBC) [Entitic vol] 87.8 fL Normal 80.0-98.0 [facility] Comment on above: Performed By: #### H EMOG, CMP3M, CRP2, LDH3, FIBGN, DDI2, APTT, FERR3 #### [facility] [address] [place] [address] Platelet mean volume (Bld) [Entitic vol] 7.6 fL Normal 7.4-10.4 [facility] Comment on above: Performed By: #### H EMOG, CMP3M, CRP2, LDH3, FIBGN, DDI2, APTT, FERR3 #### [facility] [address] [place] [address] Platelets (Bld) [#/Vol] 340 10*3/uL Normal 140-440 [facility] Comment on above: Performed By: #### H EMOG, CMP3M, CRP2, LDH3, FIBGN, DDI2, APTT, FERR3 #### [facility] [address] [place] [address] RBC (Bld) [#/Vol] 4.49 10*6/uL Normal 4.40-5.90 [facility] Comment on above: Performed By: #### H EMOG, CMP3M, CRP2, LDH3, FIBGN, DDI2, APTT, FERR3 #### [facility] [address] [place] [address] WBC (Bld) [#/Vol] 13.0 10*3/uL High 3.6-10.7 [facility] Comment on above: Performed By: #### H EMOG, CMP3M, CRP2, LDH3, FIBGN, DDI2, APTT, FERR3 #### [facility] [address] [place] [address] LDHon 11-02-2020 LDH 589 U/L High 120-246 [facility] Comment on above: Performed By: #### H EMOG, CMP3M, CRP2, LDH3, FIBGN, DDI2, APTT, FERR3 #### [facility] [address] [place] [address] Lactate Dehydrogenaseon - 0-2019 LD 589 U/L High 120 - 246 U/L [facility] Otheron 11-02-2020 Test Performed by [facility], [address] [place] [address] [place], [place] Interpretation and review of laboratory results Abnormal [facility] Test Performed by [facility], [address] [place] [address] [place] C-Reactive Proteinon 020 CRP [Mass/Vol] 14.1 mg/L High 0.0-6.0 [facility] Comment on above: Result Comment: . Performed By: #### H EMOG, CMP3M, CRP2, LDH3, FIBGN, DDI2, APTT, FERR3 #### [facility] [address] [place] [address] CRP [Mass/Vol] 14.1 mg/L High 0 - 6 mg/L [place] Comment on above: . Interpretation and review of laboratory results Abnormal [facility] Test Performed by [facility], [address] [place] [address] [place], [place] Comp Panel with Mg Reflexon 12-19-2020 ALT [Catalytic activity/Vol] 173 U/L High 0-49 [facility] Comment on above: Result Comment: The ALT test is performed by an updated assay method. Please note that the reference intervals have been changed and are now sex specific. Performed By: #### H EMOG, CMP3M, CRP2, LDH3, FIBGN, DDI2, APTT, FERR3 #### [facility] [address] [place] [address] Calcium [Mass/Vol] 8.7 mg/dL Normal 8.4-10.4 [facility] Comment on above: Performed By: #### H EMOG, CMP3M, CRP2, LDH3, FIBGN, DDI2, APTT, FERR3 #### [facility] [address] [place] [address] ALP [Catalytic activity/Vol] 77 U/L Normal 38-126 [facility] Comment on above: Performed By: #### H EMOG, CMP3M, CRP2, LDH3, FIBGN, DDI2, APTT, FERR3 #### [facility] [address] [place] [address] Anion gap [Moles/Vol] 7 Normal [facility] Comment on above: Performed By: #### H EMOG, CMP3M, CRP2, LDH3, FIBGN, DDI2, APTT, FERR3 #### [facility] [address] [place] [address] AST [Catalytic activity/Vol] 135 U/L High 15-46 [facility] Comment on above: Performed By: #### H EMOG, CMP3M, CRP2, LDH3, FIBGN, DDI2, APTT, FERR3 #### [facility] [address] [place] [address] Bilirubin [Mass/Vol] 0.5 mg/dL Normal 0.2-1.3 [facility] Comment on above: Performed By: #### H EMOG, CMP3M, CRP2, LDH3, FIBGN, DDI2, APTT, FERR3 #### [facility] [address] [place] [address] CO2 [Moles/Vol] 18 mmol/L Low 22-30 [facility] Comment on above: Performed By: #### H EMOG, CMP3M, CRP2, LDH3, FIBGN, DDI2, APTT, FERR3 #### [facility] [address] [place] [address] Creatinine [Mass/Vol] 1.77 mg/dL High 0.52-1.25 [facility] Comment on above: Performed By: #### H EMOG, CMP3M, CRP2, LDH3, FIBGN, DDI2, APTT, FERR3 #### [facility] [address] [place] [address] GFR/1.73 sq M predicted among blacks MDRD (S/P/Bld) [Vol rate/Area] 48.2 mL/min/{1.73_m2} Abnormal >60 [facility] Comment on above: Performed By: #### H EMOG, CMP3M, CRP2, LDH3, FIBGN, DDI2, APTT, FERR3 #### [facility] [address] [place] [address] GFR/1.73 sq M predicted among non-blacks MDRD (S/P/Bld) [Vol rate/Area] 41.6 mL/min/{1.73_m2} Abnormal >60 [facility] Comment on above: Result Comment: KDIG [...] FIBGN, DDI2, APTT, FERR3 #### [facility] [address] [place] [address] Glucose [Mass/Vol] 134 mg/dL High 70-100 [facility] Comment on above: Performed By: #### H EMOG, CMP3M, CRP2, LDH3, FIBGN, DDI2, APTT, FERR3 #### [facility] [address] [place] [address] Protein [Mass/Vol] 5.6 g/dL Low 6.3-8.2 [facility] Comment on above: Performed By: #### H EMOG, CMP3M, CRP2, LDH3, FIBGN, DDI2, APTT, FERR3 #### [facility] [address] [place] [address] Urea nitrogen [Mass/Vol] 32 mg/dL High 7-20 [facility] Comment on above: Performed By: #### H EMOG, CMP3M, CRP2, LDH3, FIBGN, DDI2, APTT, FERR3 #### [facility] [address] [place] [address] Potassium [Moles/Vol] 4.2 mmol/L Normal 3.5-5.1 [facility] Comment on above: Performed By: #### H EMOG, CMP3M, CRP2, LDH3, FIBGN, DDI2, APTT, FERR3 #### [facility] [address] [place] [address] Sodium [Moles/Vol] 137 mmol/L Normal 135-145 [facility] Comment on above: Performed By: #### H EMOG, CMP3M, CRP2, LDH3, FIBGN, DDI2, APTT, FERR3 #### [facility] [address] [place] [address] Albumin [Mass/Vol] 3.1 g/dL Low 3.5-5.0 [facility] Comment on above: Performed By: #### H EMOG, CMP3M, CRP2, LDH3, FIBGN, DDI2, APTT, FERR3 #### [facility] [address] [place] [address] Chloride [Moles/Vol] 113 mmol/L High 98-107 [facility] Comment on above: Performed By: #### H EMOG, CMP3M, CRP2, LDH3, FIBGN, DDI2, APTT, FERR3 #### [facility] [address] [place] [address] Comprehensive Metabolic Pane l w/ Reflex to MGon 11-01-2020 Albumin [Mass/Vol] 3.1 g/dL Low 3.5 - 5 g/dL [place] ALP [Catalytic activity/Vol] 77 U/L 38 - 126 U/L [place] ALT [Catalytic activity/Vol] 173 U/L High 0 - 49 U/L [place] Comment on above: The ALT test is perf ormed by an updated assay method. Please note that the reference intervals have been changed and are now sex specific. Anion gap [Moles/Vol] 7 mmol/L [place], [place] AST [Catalytic activity/Vol] 135 U/L High 15 - 46 U/L [place] Bilirubin Ql (U) 0.5 mg/dL 0.2 - 1.3 mg/dL [place] Calcium [Mass/Vol] 8.7 mg/dL 8.4 - 10. 4 mg/dL [place] Chloride [Moles/Vol] 113 mmol/L High 98 - 10 7 mmol/L [place] CO2 [Moles/Vol] 18 mmol/L Low 22 - 30 mmol/L [place] Creatinine [Mass/Vol] 1.77 mg/dL High 0.52 - 1.25 mg/dL [place], [place] EGFR IF NonAfrican [place] 41.6 mL/min Abnormal >60 [place] Comment on above: KDIGO guidelines pro [...] (S/P/Bld) [Vol rate/Area] 48.2 mL/min/{1.73_m2} Abnormal >60 [facility], [place] Glucose [Mass/Vol] 134 mg/dL High 70 - 100 mg/dL [facility], [place] Potassium [Moles/Vol] 4.2 mmol/L 3.5 - 5.1 mmol/L [facility], [place] Protein [Mass/Vol] 5.6 g/dL Low 6.3 - 8.2 g/dL [facility], [place] Sodium [Moles/Vol] 137 mmol/L 135 - 145 mmol/L [facility], [place] Urea nitrogen [Mass/Vol] 32 mg/dL High 7 - 20 mg/dL [place] D-Dimer, Innovanceon 11-01- 020 D-Dimer, Innovance 0.87 mg/L High 0.00-0.50 [facility] Comment on above: Result Comment: Inno uqach D-Dimer values of <0.50 mg/L FEU can be used in combination with a pre-test probability model (e.g. Well's) to exclude pulmonary embolism (PE) disease, as well as an aid in the diagnosis of deep vein thrombosis (DVT). Performed By: #### H EMOG, CMP3M, CRP2, LDH3, FIBGN, DDI2, APTT, FERR3 #### [employer] [address] [place] [address] D-Dimer, Quantitativeon - D-Dimer, Quant 0.87 mg/L High 0 - 0.5 mg/L [place], [place] Comment on above: [employer] D-Dimer va lues of <0.50 mg/L FEU can be used in combination with a pre-test probability model (e.g. Well's) to exclude pulmonary embolism (PE) disease, as well as an aid in the diagnosis of deep vein thrombosis (DVT). 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 : 1965 Requested By: FARRUKH DIAZ Order Number: [id number] Reading MD: Usama Johnston Intervals [place] Rate: 83 P: 21 TN: 192 QRS: -16 QRSD: 104 T: 28 QT: 404 QTc: 475 Interpretive Statements SINUS RHYTHM MULTIPLE VENTRICULAR PREMATURE COMPLEXES Electronically Signed On 11-01-2020 23:01:06 EST by Usama [facility] Test Date: 2020-10-31 Pat Name: Reggie León Department: Room: 468 Gender: M Side Panel Hanger: NYLA : 1965 Requested By: FARRUKH DIAZ Order Number: [id number] Reading MD: Usama Johnston Intervals [place] Rate: 83 P: 21 TN: 192 QRS: -16 QRSD: 104 T: 28 QT: 404 QTc: 475 Interpretive Statements SINUS RHYTHM MULTIPLE VENTRICULAR PREMATURE COMPLEXES Electronically Signed On 11-01-2020 23:01:06 EST by Usama Leland [place], [place] Ferritinon 11-01-2020 Ferritin [Mass/Vol] 1020 ng/mL High 18-464 [facility] Comment on above: Performed By: #### H EMOG, CMP3M, CRP2, LDH3, FIBGN, DDI2, APTT, FERR3 #### [facility] [address] [place] [address] Ferritin [Mass/Vol] 1020 ng/mL High 18 - 464 ng/mL [place], [place] Interpretation and review of laboratory results Abnormal [place] Test Performed by [facility], [address], [place], [place] [address] [place] Fibrinogenon 11-01-2020 Fibrinogen 420 mg/dL High 200-400 [facility] Comment on above: Performed By: #### H EMOG, CMP3M, CRP2, LDH3, FIBGN, DDI2, APTT, FERR3 #### [facility] [address] [place] [address] Fibrinogen 420 mg/dL High 200 - 400 mg/dL [place] LDHon 11-01-2020 LDH 665 U/L High 120-246 [facility] Comment on above: Performed By: #### H EMOG, CMP3M, CRP2, LDH3, FIBGN, DDI2, APTT, FERR3 #### [facility] [address] [place] [address] Lactate Dehydrogenaseon 10-14 LD 665 U/L High 120 - 246 U/L [place] Otheron 11-01-2020 Interpretation and review of laboratory results Abnormal [place] Test Performed by [facility], [address] [place] [address] [place] Interpretation and review of laboratory results Abnormal [place] Test Performed by [facility], [address] [place] [address] [place], [place] C-Reactive Proteinon 020 CRP [Mass/Vol] 19.2 mg/L High 0.0-6.0 [facility] Comment on above: Result Comment: . Performed By: #### H EMOG, CMP3M, CRP2, LDH3, FIBGN, DDI2, APTT, FERR3 #### [facility] [address] [place] [address] CRP [Mass/Vol] 19.2 mg/L High 0 - 6 mg/L [place] Comment on above: . CBCon 10-31-2020 Erythrocyte distribution width (RBC) [Ratio] 14.0 % 11.5 - 14.5 % [place] Hematocrit (Bld) [Volume fraction] 35.7 % Low 40 - 52 % [place] Hemoglobin (Bld) [Mass/Vol] 12.0 g/dL Low 13 - 18 g/dL [place] Interpretation and review of laboratory results Abnormal [place] MCH (RBC) [Entitic mass] 29.0 pg 26 - 34 pg [place] MCHC (RBC) [Mass/Vol] 33.7 % 32 - 36 % [place] MCV (RBC) [Entitic vol] 86.3 fL 80 - 98 fL [place] Platelet mean volume (Bld) [Entitic vol] 7.5 fL 7.4 - 10.4 fL [place], [place] Platelets (Bld) [#/Vol] 294 10*3/uL 140 - 440 10*3/uL [place] RBC (Bld) [#/Vol] 4.14 10*6/uL Low 4.4 - 5.9 10*6/uL [place] WBC (Bld) [#/Vol] 9.5 10*3/uL 3.6 - 10.7 10*3/uL [place] Test Performed by [facility], [address] [place] [address] [place], [place] Comp Panel with Mg Reflexon 10-31-2020 ALT [Catalytic activity/Vol] 79 U/L High 0-49 [facility] Comment on above: Result Comment: The ALT test is performed by an updated assay method. Please note that the reference intervals have been changed and are now sex specific. Performed By: #### H EMOG, CMP3M, CRP2, LDH3, FIBGN, DDI2, APTT, FERR3 #### [facility] [address] [place] [address] Calcium [Mass/Vol] 8.7 mg/dL Normal 8.4-10.4 [facility] Comment on above: Performed By: #### H EMOG, CMP3M, CRP2, LDH3, FIBGN, DDI2, APTT, FERR3 #### [facility] [address] [place] [address] Glucose [Mass/Vol] 139 mg/dL High 70-100 [facility] Comment on above: Performed By: #### H EMOG, CMP3M, CRP2, LDH3, FIBGN, DDI2, APTT, FERR3 #### [facility] [address] [place] [address] Urea nitrogen [Mass/Vol] 30 mg/dL High 7-20 [facility] Comment on above: Performed By: #### H EMOG, CMP3M, CRP2, LDH3, FIBGN, DDI2, APTT, FERR3 #### [facility] [address] [place] [address] ALP [Catalytic activity/Vol] 69 U/L Normal 38-126 [facility] Comment on above: Performed By: #### H EMOG, CMP3M, CRP2, LDH3, FIBGN, DDI2, APTT, FERR3 #### [facility] [address] [place] [address] Anion gap [Moles/Vol] 7 Normal [facility] Comment on above: Performed By: #### H EMOG, CMP3M, CRP2, LDH3, FIBGN, DDI2, APTT, FERR3 #### [facility] [address] [place] [address] AST [Catalytic activity/Vol] 67 U/L High 15-46 [facility] Comment on above: Performed By: #### H EMOG, CMP3M, CRP2, LDH3, FIBGN, DDI2, APTT, FERR3 #### [facility] [address] [place] [address] Bilirubin [Mass/Vol] 0.4 mg/dL Normal 0.2-1.3 [facility] Comment on above: Performed By: #### H EMOG, CMP3M, CRP2, LDH3, FIBGN, DDI2, APTT, FERR3 #### [facility] [address] [place] [address] CO2 [Moles/Vol] 17 mmol/L Low 22-30 [facility] Comment on above: Performed By: #### H EMOG, CMP3M, CRP2, LDH3, FIBGN, DDI2, APTT, FERR3 #### [facility] [address] [place] [address] Creatinine [Mass/Vol] 1.84 mg/dL High 0.52-1.25 [facility] Comment on above: Performed By: #### H EMOG, CMP3M, CRP2, LDH3, FIBGN, DDI2, APTT, FERR3 #### [facility] [address] [place] [address] GFR/1.73 sq M predicted among blacks MDRD (S/P/Bld) [Vol rate/Area] 46.0 mL/min/{1.73_m2} Abnormal >60 [facility] Comment on above: Performed By: #### H EMOG, CMP3M, CRP2, LDH3, FIBGN, DDI2, APTT, FERR3 #### [facility] [employer] [facility] [address] [place] [address] GFR/1.73 sq M predicted among non-blacks MDRD (S/P/Bld) [Vol rate/Area] 39.7 mL/min/{1.73_m2} Abnormal >60 [facility] Comment on above: Result Comment: KDIG [...] FIBGN, DDI2, APTT, FERR3 #### [facility] [address] [place] [address] Protein [Mass/Vol] 5.3 g/dL Low 6.3-8.2 [facility] Comment on above: Performed By: #### H EMOG, CMP3M, CRP2, LDH3, FIBGN, DDI2, APTT, FERR3 #### [facility] [address] [place] [address] Albumin [Mass/Vol] 2.8 g/dL Low 3.5-5.0 [facility] Comment on above: Performed By: #### H EMOG, CMP3M, CRP2, LDH3, FIBGN, DDI2, APTT, FERR3 #### [facility] [address] [place] [address] Chloride [Moles/Vol] 112 mmol/L High 98-107 [facility] Comment on above: Performed By: #### H EMOG, CMP3M, CRP2, LDH3, FIBGN, DDI2, APTT, FERR3 #### [facility] [address] [place] [address] Sodium [Moles/Vol] 136 mmol/L Normal 135-145 [facility] Comment on above: Performed By: #### H EMOG, CMP3M, CRP2, LDH3, FIBGN, DDI2, APTT, FERR3 #### [facility] [address] [place] [address] Potassium [Moles/Vol] 3.8 mmol/L Normal 3.5-5.1 [place] Comment on above: Performed By: #### H EMOG, CMP3M, CRP2, LDH3, FIBGN, DDI2, APTT, FERR3 #### [facility] [address] [place] [address] Comprehensive Metabolic Pane l w/ Reflex to MGon 10-31-2020 Albumin [Mass/Vol] 2.8 g/dL Low 3.5 - 5 g/dL [place] ALP [Catalytic activity/Vol] 69 U/L 38 - 126 U/L [place] ALT [Catalytic activity/Vol] 79 U/L High 0 - 49 U/L [place] Comment on above: The ALT test is perf ormed by an updated assay method. Please note that the reference intervals have been changed and are now sex specific. Anion gap [Moles/Vol] 7 mmol/L [place] AST [Catalytic activity/Vol] 67 U/L High 15 - 46 U/L [place] Bilirubin Ql (U) 0.4 mg/dL 0.2 - 1.3 mg/dL [place] Calcium [Mass/Vol] 8.7 mg/dL 8.4 - 10. 4 mg/dL [place] Chloride [Moles/Vol] 112 mmol/L High 98 - 10 7 mmol/L [place] CO2 [Moles/Vol] 17 mmol/L Low 22 - 30 mmol/L [place] Creatinine [Mass/Vol] 1.84 mg/dL High 0.52 - 1.25 mg/dL [place] EGFR IF NonAfrican [place] 39.7 mL/min Abnormal >60 [place] Comment on above: KDIGO guidelines pro [...] (S/P/Bld) [Vol rate/Area] 46.0 mL/min/{1.73_m2} Abnormal >60 [place] Glucose [Mass/Vol] 139 mg/dL High 70 - 100 mg/dL [place] Protein [Mass/Vol] 5.3 g/dL Low 6.3 - 8.2 g/dL [place] Sodium [Moles/Vol] 136 mmol/L 135 - 145 mmol/L [place] Urea nitrogen [Mass/Vol] 30 mg/dL High 7 - 20 mg/dL [place] D-Dimer, Innovanceon 12-18-2 020 D-Dimer, [employer] 0.96 mg/L High 0.00-0.50 [facility] Comment on above: Result Comment: Inno quach D-Dimer values of <0.50 mg/L FEU can be used in combination with a pre-test probability model (e.g. Well's) to exclude pulmonary embolism (PE) disease, as well as an aid in the diagnosis of deep vein thrombosis (DVT). Performed By: #### H EMOG, CMP3M, CRP2, LDH3, FIBGN, DDI2, APTT, FERR3 #### [facility] [address] [place] [address] D-Dimer, Quantitativeon 10-14 D-Dimer, Quant 0.96 mg/L High 0 - 0.5 mg/L [place] Comment on above: [employer] D-Dimer va lues of <0.50 mg/L FEU can be used in combination with a pre-test probability model (e.g. Well's) to exclude pulmonary embolism (PE) disease, as well as an aid in the diagnosis of deep vein thrombosis (DVT). Ferritinon 10-31-2020 Ferritin [Mass/Vol] 810 ng/mL High 18-464 [facility] Comment on above: Performed By: #### H EMOG, CMP3M, CRP2, LDH3, FIBGN, DDI2, APTT, FERR3 #### [facility] [address] [place] [address] Ferritin [Mass/Vol] 810 ng/mL High 18 - 464 ng/mL [place] Interpretation and review of laboratory results Abnormal [place] Test Performed by [facility], [address] [place] [address] [place] Fibrinogenon 10-31-2020 Fibrinogen 455 mg/dL High 200-400 [facility] Comment on above: Performed By: #### H EMOG, CMP3M, CRP2, LDH3, FIBGN, DDI2, APTT, FERR3 #### [facility] [address] [facility] [place] [address] Fibrinogen 455 mg/dL High 200 - 400 mg/dL [place] Hemogramon 10-31-2020 Erythrocyte distribution width (RBC) [Ratio] 14.0 % Normal 11.5-14.5 [facility] Comment on above: Performed By: #### H EMOG, CMP3M, CRP2, LDH3, FIBGN, DDI2, APTT, FERR3 #### [facility] [address] [place] [address] Hematocrit (Bld) [Volume fraction] 35.7 % Low 40.0-52.0 [facility] Comment on above: Performed By: #### H EMOG, CMP3M, CRP2, LDH3, FIBGN, DDI2, APTT, FERR3 #### [facility] [address] [place] [address] Hemoglobin (Bld) [Mass/Vol] 12.0 g/dL Low 13.0-18.0 [facility] Comment on above: Performed By: #### H EMOG, CMP3M, CRP2, LDH3, FIBGN, DDI2, APTT, FERR3 #### [facility] [address] [place] [address] MCH (RBC) [Entitic mass] 29.0 pg Normal 26.0-34.0 [facility] Comment on above: Performed By: #### H EMOG, CMP3M, CRP2, LDH3, FIBGN, DDI2, APTT, FERR3 #### [facility] [address] [place] [address] MCHC (RBC) [Mass/Vol] 33.7 % Normal 32.0-36.0 [facility] Comment on above: Performed By: #### H EMOG, CMP3M, CRP2, LDH3, FIBGN, DDI2, APTT, FERR3 #### [facility] [address] [place] [address] MCV (RBC) [Entitic vol] 86.3 fL Normal 80.0-98.0 [facility] Comment on above: Performed By: #### H EMOG, CMP3M, CRP2, LDH3, FIBGN, DDI2, APTT, FERR3 #### [facility] [address] [place] [address] Platelet mean volume (Bld) [Entitic vol] 7.5 fL Normal 7.4-10.4 [facility] Comment on above: Performed By: #### H EMOG, CMP3M, CRP2, LDH3, FIBGN, DDI2, APTT, FERR3 #### [facility] [address] [place] [id number] Platelets (Bld) [#/Vol] 294 10*3/uL Normal 140-440 [facility] Comment on above: Performed By: #### H EMOG, CMP3M, CRP2, LDH3, FIBGN, DDI2, APTT, FERR3 #### [facility] [address] [place] [id number] RBC (Bld) [#/Vol] 4.14 10*6/uL Low 4.40-5.90 [facility] [facility] Comment on above: Performed By: #### H EMOG, CMP3M, CRP2, LDH3, FIBGN, DDI2, APTT, FERR3 #### [facility] [address] [place] [address] WBC (Bld) [#/Vol] 9.5 10*3/uL Normal 3.6-10.7 [facility] Comment on above: Performed By: #### H EMOG, CMP3M, CRP2, LDH3, FIBGN, DDI2, APTT, FERR3 #### [facility] [address] [place] [address] LDHon 10-31-2020 LDH 572 U/L High 120-246 [facility] Comment on above: Performed By: #### H EMOG, CMP3M, CRP2, LDH3, FIBGN, DDI2, APTT, FERR3 #### [facility] [address] [place] [address] Lactate Dehydrogenaseon 10-14 LD 572 U/L High 120 - 246 U/L [facility], [place] Otheron 10-31-2020 Interpretation and review of laboratory results Abnormal [facility], [place] Test Performed by [place] [address] [place] [id number] [place] [address], [place] Interpretation and review of laboratory results Abnormal [facility], [place] Test Performed by [facility], [facility] [address] [place] [address] [place], [place] APTTon 10-30-2020 aPTT Coag (Bld) [Time] 47.0 s High 20.0-30.5 [facility] Comment on above: Result Comment: NOTE : The therapeutic time for Heparin anticoagulation, based on Xa activity inhibition, is an APTT of 46-80 seconds. Performed By: #### H EMOG, CMP3M, CRP2, LDH3, FIBGN, DDI2, APTT, FERR3 #### [facility] [address] [place] [address] aPTT Coag (Bld) [Time] 47 s High 20 - 30.5 s [place], [place] Comment on above: NOTE: The therapeuti c time for Heparin anticoagulation, based on Xa activity inhibition, is an APTT of 46-80 seconds. C-Reactive Proteinon 020 CRP [Mass/Vol] 27.5 mg/L High 0.0-6.0 [facility] Comment on above: Result Comment: . Performed By: #### H EMOG, CMP3M, CRP2, LDH3, FIBGN, DDI2, APTT, FERR3 #### [facility] [address] [place] [address] CRP [Mass/Vol] 27.5 mg/L High 0 - 6 mg/L [place], [place] Comment on above: . Comp Panel with Mg Reflexon 10-30-2020 ALT [Catalytic activity/Vol] 67 U/L High 0-49 [facility] Comment on above: Result Comment: The ALT test is performed by an updated assay method. Please note that the reference intervals have been changed and are now sex specific. Performed By: #### H EMOG, CMP3M, CRP2, LDH3, FIBGN, DDI2, APTT, FERR3 #### [facility] [address] [place] [address] Calcium [Mass/Vol] 8.6 mg/dL Normal 8.4-10.4 [facility] Comment on above: Performed By: #### H EMOG, CMP3M, CRP2, LDH3, FIBGN, DDI2, APTT, FERR3 #### [facility] [address] [place] [address] Glucose [Mass/Vol] 142 mg/dL High 70-100 [facility] Comment on above: Performed By: #### H EMOG, CMP3M, CRP2, LDH3, FIBGN, DDI2, APTT, FERR3 #### [facility] [address] [place] [address] Urea nitrogen [Mass/Vol] 30 mg/dL High 7-20 [facility] Comment on above: Performed By: #### H EMOG, CMP3M, CRP2, LDH3, FIBGN, DDI2, APTT, FERR3 #### [facility] [address] [place] [address] ALP [Catalytic activity/Vol] 75 U/L Normal 38-126 [facility] Comment on above: Performed By: #### H EMOG, CMP3M, CRP2, LDH3, FIBGN, DDI2, APTT, FERR3 #### [facility] [address] [place] [address] Anion gap [Moles/Vol] 8 Normal [facility] Comment on above: Performed By: #### H EMOG, CMP3M, CRP2, LDH3, FIBGN, DDI2, APTT, FERR3 #### [facility] [address] [place] [address] AST [Catalytic activity/Vol] 67 U/L High 15-46 [facility] Comment on above: Performed By: #### H EMOG, CMP3M, CRP2, LDH3, FIBGN, DDI2, APTT, FERR3 #### [facility] [address] [place] [address] Bilirubin [Mass/Vol] 0.3 mg/dL Normal 0.2-1.3 [facility] Comment on above: Performed By: #### H EMOG, CMP3M, CRP2, LDH3, FIBGN, DDI2, APTT, FERR3 #### [facility] [address] [place] [address] CO2 [Moles/Vol] 18 mmol/L Low 22-30 [facility] Comment on above: Performed By: #### H EMOG, CMP3M, CRP2, LDH3, FIBGN, DDI2, APTT, FERR3 #### [facility] [address] [place] [address] Creatinine [Mass/Vol] 2.01 mg/dL High 0.52-1.25 [facility] Comment on above: Performed By: #### H EMOG, CMP3M, CRP2, LDH3, FIBGN, DDI2, APTT, FERR3 #### [facility] [address] [place] [address] GFR/1.73 sq M predicted among blacks MDRD (S/P/Bld) [Vol rate/Area] 41.3 mL/min/{1.73_m2} Abnormal >60 [facility] Comment on above: Performed By: #### H EMOG, CMP3M, CRP2, LDH3, FIBGN, DDI2, APTT, FERR3 #### [facility] [address] [place] [place] [address] GFR/1.73 sq M predicted among non-blacks MDRD (S/P/Bld) [Vol rate/Area] 35.6 mL/min/{1.73_m2} Abnormal >60 [facility] Comment on above: Result Comment: KDIG [...] FIBGN, DDI2, APTT, FERR3 #### [facility] [address] [place] [address] Protein [Mass/Vol] 5.7 g/dL Low 6.3-8.2 [facility] Comment on above: Performed By: #### H EMOG, CMP3M, CRP2, LDH3, FIBGN, DDI2, APTT, FERR3 #### [facility] [address] [place] [address] Potassium [Moles/Vol] 4.0 mmol/L Normal 3.5-5.1 [facility] Comment on above: Performed By: #### H EMOG, CMP3M, CRP2, LDH3, FIBGN, DDI2, APTT, FERR3 #### [facility] [address] [place] [address] Albumin [Mass/Vol] 2.9 g/dL Low 3.5-5.0 [facility] Comment on above: Performed By: #### H EMOG, CMP3M, CRP2, LDH3, FIBGN, DDI2, APTT, FERR3 #### [facility] [address] [place] [address] Chloride [Moles/Vol] 114 mmol/L High 98-107 [facility] Comment on above: Performed By: #### H EMOG, CMP3M, CRP2, LDH3, FIBGN, DDI2, APTT, FERR3 #### [facility] [address] [place] [address] Sodium [Moles/Vol] 140 mmol/L Normal 135-145 [facility] Comment on above: Performed By: #### H EMOG, CMP3M, CRP2, LDH3, FIBGN, DDI2, APTT, FERR3 #### [facility] [address] [place] [address] Comprehensive Metabolic Pane l w/ Reflex to MGon 10-30-2020 Albumin [Mass/Vol] 2.9 g/dL Low 3.5 - 5 g/dL [place], [place] ALP [Catalytic activity/Vol] 75 U/L 38 - 126 U/L [place] ALT [Catalytic activity/Vol] 67 U/L High 0 - 49 U/L [place], [place] Comment on above: The ALT test is perf ormed by an updated assay method. Please note that the reference intervals have been changed and are now sex specific. Anion gap [Moles/Vol] 8 mmol/L [place], [place] AST [Catalytic activity/Vol] 67 U/L High 15 - 46 U/L [place], [place] Bilirubin Ql (U) 0.3 mg/dL 0.2 - 1.3 mg/dL [place], [place] Calcium [Mass/Vol] 8.6 mg/dL 8.4 - 10. 4 mg/dL [place], [place] Chloride [Moles/Vol] 114 mmol/L High 98 - 10 7 mmol/L [place], [place] CO2 [Moles/Vol] 18 mmol/L Low 22 - 30 mmol/L [place] Creatinine [Mass/Vol] 2.01 mg/dL High 0.52 - 1.25 mg/dL [place], [place] EGFR IF NonAfrican [place] 35.6 mL/min Abnormal >60 [place] Comment on above: KDIGO guidelines pro [...] (S/P/Bld) [Vol rate/Area] 41.3 mL/min/{1.73_m2} Abnormal >60 [place], [place] Glucose [Mass/Vol] 142 mg/dL High 70 - 100 mg/dL [place], [place] Potassium [Moles/Vol] 4.0 mmol/L 3.5 - 5.1 mmol/L [place], [place] Protein [Mass/Vol] 5.7 g/dL Low 6.3 - 8.2 g/dL [place] Sodium [Moles/Vol] 140 mmol/L 135 - 145 mmol/L [place], [place] Urea nitrogen [Mass/Vol] 30 mg/dL High 7 - 20 mg/dL [place] D-Dimer, Innovanceon 020 D-Dimer, Innovance 0.89 mg/L High 0.00-0.50 [facility] Comment on above: Result Comment: Inno quach D-Dimer values of <0.50 mg/L FEU can be used in combination with a pre-test probability model (e.g. Well's) to exclude pulmonary embolism (PE) disease, as well as an aid in the diagnosis of deep vein thrombosis (DVT). Performed By: #### H EMOG, CMP3M, CRP2, LDH3, FIBGN, DDI2, APTT, FERR3 #### [facility] [address] [place] [address] D-Dimer, Quantitativeon 10-14 D-Dimer, Quant 0.89 mg/L High 0 - 0.5 mg/L [place], [place] Comment on above: Innovance D-Dimer va lues of <0.50 mg/L FEU can be used in combination with a pre-test probability model (e.g. Well's) to exclude pulmonary embolism (PE) disease, as well as an aid in the diagnosis of deep vein thrombosis (DVT). Ferritinon 10-30-2020 Ferritin [Mass/Vol] 885 ng/mL High 18-464 [facility] Comment on above: Performed By: #### H EMOG, CMP3M, CRP2, LDH3, FIBGN, DDI2, APTT, FERR3 #### [facility] [address] [place] [address] Ferritin [Mass/Vol] 885 ng/mL High 18 - 464 ng/mL [place], [place] Interpretation and review of laboratory results Abnormal [place], [place] Test Performed by [facility], [address] [place] [address] [place], [place] Fibrinogenon 10-30-2020 Fibrinogen 456 mg/dL High 200-400 [facility] Comment on above: Performed By: #### H EMOG, CMP3M, CRP2, LDH3, FIBGN, DDI2, APTT, FERR3 #### [facility] [address] [place] [address] Fibrinogen 456 mg/dL High 200 - 400 mg/dL [place] LDHon 10-30-2020 LDH 613 U/L High 120-246 [facility] Comment on above: Performed By: #### H EMOG, CMP3M, CRP2, LDH3, FIBGN, DDI2, APTT, FERR3 #### [facility] [address] [place] [address] Lactate Dehydrogenaseon 10-14 LD 613 U/L High 120 - 246 U/L [place] Otheron 10-30-2020 Interpretation and review of laboratory results Abnormal [place], [place] Test Performed by [facility], [address] [place] [address] [place], [place] Interpretation and review of laboratory results Abnormal [place], [place] Test Performed by [facility], [address] [place] [address] [place], [place] APTTon 10-29-2020 aPTT Coag (Bld) [Time] 35.1 s High 20.0-30.5 [facility] Comment on above: Result Comment: NOTE : The therapeutic time for Heparin anticoagulation, based on Xa activity inhibition, is an APTT of 46-80 seconds. Performed By: #### H EMOG, CMP3M, CRP2, LDH3, FIBGN, DDI2, APTT, FERR3 #### [facility] [address] [place] [address] aPTT Coag (Bld) [Time] 35.1 s High 20 - 30.5 s [place] Comment on above: NOTE: The therapeuti c time for Heparin anticoagulation, based on Xa activity inhibition, is an APTT of 46-80 seconds. C-Reactive Proteinon 020 CRP [Mass/Vol] 34.9 mg/L High 0.0-6.0 [facility] Comment on above: Result Comment: . Performed By: #### H EMOG, CMP3M, CRP2, LDH3, FIBGN, DDI2, APTT, FERR3 #### [facility] [address] [place] [address] CRP [Mass/Vol] 34.9 mg/L High 0 - 6 mg/L [place], [place] Comment on above: . CBCon 10-29-2020 Erythrocyte distribution width (RBC) [Ratio] 14.2 % 11.5 - 14.5 % [place] Hematocrit (Bld) [Volume fraction] 37.3 % Low 40 - 52 % [place] Hemoglobin (Bld) [Mass/Vol] 12.6 g/dL Low 13 - 18 g/dL [place], [place] Interpretation and review of laboratory results Abnormal [place] MCH (RBC) [Entitic mass] 29.2 pg 26 - 34 pg [place] MCHC (RBC) [Mass/Vol] 33.7 % 32 - 36 % [place], [place] MCV (RBC) [Entitic vol] 86.7 fL 80 - 98 fL [place], [place] Platelet mean volume (Bld) [Entitic vol] 7.6 fL 7.4 - 10.4 fL [place], [place] Platelets (Bld) [#/Vol] 255 10*3/uL 140 - 440 10*3/uL [place] RBC (Bld) [#/Vol] 4.30 10*6/uL Low 4.4 - 5.9 10*6/uL [place] WBC (Bld) [#/Vol] 7.8 10*3/uL 3.6 - 10.7 10*3/uL [place] Test Performed by [facility], [address], [place], [place] [address] [place], [place] CBC auto differentialon 10-14 Absolute Baso # 0.0 10*3/uL 0 - 0.2 10*3/uL [place], [place] Absolute Neut # 3.5 10*3/uL 1.8 - 7 10*3/uL [place], [place] Basophils/100 WBC (Bld) 0.3 % 0 - 2 % [place], [place] Eosinophils (Bld) [#/Vol] 0.0 10*3/uL 0 - 0.5 10*3/uL [place] Eosinophils/100 WBC (Bld) 0.0 % Low 1 - 6 % [place] Erythrocyte distribution width (RBC) [Ratio] 13.8 % 11.5 - 14.5 % [place] Granulocytes/100 WBC (Bld) 79.4 % 40 - 80 % [place] Hematocrit (Bld) [Volume fraction] 36.7 % Low 40 - 52 % [place] Hemoglobin (Bld) [Mass/Vol] 12.2 g/dL Low 13 - 18 g/dL [place] Interpretation and review of laboratory results Abnormal [place] Lymphocytes (Bld) [#/Vol] 0.4 10*3/uL Low 1 - 4.3 10*3/uL [place] Lymphocytes/100 WBC (Bld) 8.8 % Low 20 - 40 % [place] MCH (RBC) [Entitic mass] 29.1 pg 26 - 34 pg [place] MCHC (RBC) [Mass/Vol] 33.1 % 32 - 36 % [place] MCV (RBC) [Entitic vol] 87.8 fL 80 - 98 fL [place], [place] Monocytes (Bld) [#/Vol] 0.5 10*3/uL 0 - 0.8 10*3/uL [place], [place] Monocytes/100 WBC (Bld) 11.5 % High 2 - 10 % [place], [place] Platelet mean volume (Bld) [Entitic vol] 7.9 fL 7.4 - 10.4 fL [place], [place] Platelets (Bld) [#/Vol] 231 10*3/uL 140 - 440 10*3/uL [place] RBC (Bld) [#/Vol] 4.19 10*6/uL Low 4.4 - 5.9 10*6/uL [place] WBC (Bld) [#/Vol] 4.4 10*3/uL 3.6 - 10.7 10*3/uL [place] Test Performed by [facility], [address] [place] [address] [place], [place] COVID and Resp PCR Panelon 1 12-30-2019 COVID and Resp PCR Panel COVID and Resp PCR Panel --> Status: F NEGATIVE: No targets were detected by the [employer] Upper Respiratory Pathogens PCR Panel. _ Expected Result: Not Detected The [employer] Upper Respiratory Pathogens PCR Panel can detect [...] management decisions. This assay was developed by [employer] and distributed under an Emergency Use Authorization (EUA) granted by the FDA for the qualitative detection of SARS-CoV-2 nucleic acid. Provider and patient fact sheets can be found at https://www.fda.gov/media/ 118295/download and https://www.fda.gov/media/ 229962/download. Respiratory Pathogens PCR Panel. _ Expected Result: Not Detected The [employer] Upper Respiratory Pathogens PCR Panel can detect [...] management decisions. This assay was developed by [employer] and distributed under an Emergency Use Authorization (EUA) granted by the FDA for the qualitative detection of SARS-CoV-2 nucleic acid. Provider and patient fact sheets can be found at https://www.fda.gov/media/ 937062/download and https://www.fda.gov/media/ 488753/download. Normal [facility] Comment on above: Performed By: #### H EMOG, CMP3M, CRP2, LDH3, FIBGN, DDI2, APTT, FERR3 #### [facility] [address] [place] [address] CTA CHEST W WO CONTRASTon Patient Name: REGGIE WILSON [employer] ACCESSION EXAM DATE/TIME PROCEDURE ORDERING PROVIDER [id number] 10/29/2020 16:29 EST CTA Chest w/ + w/o MD EMILY, FARRUKH MCCORMICK Contrast CPT code 37992 Q9967 Reason For Exam (CTA Chest w/ + w/o Contrast) Hypoxia and elevated D-dimer, possible COVID+ and PE? Report Reasons for examination: Hypoxia, elevated d-dimer, Covid 19. CT scan of the chest were performed with bolus contrast and high resolution scans for CT pulmonary angiographic study, with images post-processed by myself on [employer] workstation, with 3D - volume rendered CT [...] WILLIAM Transcribed Date and Time: 10/29/2020 4:51 [facility], [place] Dar Pearson Incoming Radiology Results From [facility] - 10/29/2020 4:51 PM EST Patient Name: REGGIE LEÓN Computed Tomography ACCESSION EXAM DATE/TIME PROCEDURE ORDERING PROVIDER [id number] 10/29/2020 16:29 EST CTA Chest w/ + w/o MD EMILY, FARRUKH MCCORMICK Contrast CPT code 60809 Q9967 Reason For Exam (CTA Chest w/ + w/o Contrast) Hypoxia and elevated D-dimer, possible COVID+ and PE? Report Reasons for examination: Hypoxia, elevated d-dimer, Covid 19. CT scan of the chest were performed with bolus contrast and high resolution scans for CT pulmonary angiographic study, with images post-processed by myself on [employer] workstation, with 3D - volume rendered CT [...] WILLIAM Transcribed Date and Time: 10/29/2020 4:51 [facility], [place] CTA Chest w/ + w/o Contrasto n 10-29-2020 CTA Chest w/ + w/o Contrast Patient Name: REGGIE LEÓN Computed Tomography ACCESSION EXAM DATE/TIME PROCEDURE ORDERING PROVIDER [id number] 10/29/2020 16:29 EST CTA Chest w/ + w/o MD EMILY, CINDYJAQUELINE ANNY Contrast CPT code 82342 Q9967 Reason For Exam (CTA Chest w/ + w/o Contrast) Hypoxia and elevated D-dimer, possible COVID+ and PE? Report Reasons for examination: Hypoxia, elevated d-dimer, Covid 19. CT scan of the chest were performed with bolus contrast and high resolution scans for CT pulmonary angiographic study, with images post-processed by myself on [employer] workstation, with 3D - volume rendered CT [...] and Time: 10/29/2020 4:51 Normal [facility] Comp Panel with Mg Reflexon 10-29-2020 ALP [Catalytic activity/Vol] 71 U/L Normal 38-126 [facility] Comment on above: Performed By: #### H EMOG, CMP3M, CRP2, LDH3, FIBGN, DDI2, APTT, FERR3 #### [facility] [address] [place] [address] ALT [Catalytic activity/Vol] 67 U/L High 0-49 [facility] Comment on above: Result Comment: The ALT test is performed by an updated assay method. Please note that the reference intervals have been changed and are now sex specific. Performed By: #### H EMOG, CMP3M, CRP2, LDH3, FIBGN, DDI2, APTT, FERR3 #### [facility] [address] [place] [address] Anion gap [Moles/Vol] 7 Normal [facility] Comment on above: Performed By: #### H EMOG, CMP3M, CRP2, LDH3, FIBGN, DDI2, APTT, FERR3 #### [facility] [address] [place] [address] AST [Catalytic activity/Vol] 88 U/L High 15-46 [facility] Comment on above: Performed By: #### H EMOG, CMP3M, CRP2, LDH3, FIBGN, DDI2, APTT, FERR3 #### [facility] [address] [place] [address] Bilirubin [Mass/Vol] 0.6 mg/dL Normal 0.2-1.3 [facility] Comment on above: Performed By: #### H EMOG, CMP3M, CRP2, LDH3, FIBGN, DDI2, APTT, FERR3 #### [facility] [address] [place] [address] Calcium [Mass/Vol] 8.9 mg/dL Normal 8.4-10.4 [facility] Comment on above: Performed By: #### H EMOG, CMP3M, CRP2, LDH3, FIBGN, DDI2, APTT, FERR3 #### [facility] [address] [place] [address] CO2 [Moles/Vol] 18 mmol/L Low 22-30 [facility] Comment on above: Performed By: #### H EMOG, CMP3M, CRP2, LDH3, FIBGN, DDI2, APTT, FERR3 #### [facility] [address] [place] [address] Creatinine [Mass/Vol] 2.24 mg/dL High 0.52-1.25 [facility] Comment on above: Performed By: #### H EMOG, CMP3M, CRP2, LDH3, FIBGN, DDI2, APTT, FERR3 #### [facility] [employer] [facility] [address] [place] [address] GFR/1.73 sq M predicted among blacks MDRD (S/P/Bld) [Vol rate/Area] 36.2 mL/min/{1.73_m2} Abnormal >60 [facility] Comment on above: Performed By: #### H EMOG, CMP3M, CRP2, LDH3, FIBGN, DDI2, APTT, FERR3 #### [facility] [employer] [facility] [address] [place] [address] GFR/1.73 sq M predicted among non-blacks MDRD (S/P/Bld) [Vol rate/Area] 31.3 mL/min/{1.73_m2} Abnormal >60 [facility] Comment on above: Result Comment: KDIG [...] CRP2, LDH3, FIBGN, DDI2, APTT, FERR3 #### [facility] [employer] [facility] [address] [place] [address] Glucose [Mass/Vol] 132 mg/dL High 70-100 [facility] Comment on above: Performed By: #### H EMOG, CMP3M, CRP2, LDH3, FIBGN, DDI2, APTT, FERR3 #### [facility] [employer] [facility] [address] [place] [address] Protein [Mass/Vol] 6.0 g/dL Low 6.3-8.2 [facility] Comment on above: Performed By: #### H EMOG, CMP3M, CRP2, LDH3, FIBGN, DDI2, APTT, FERR3 #### [facility] [address] [place] [address] Urea nitrogen [Mass/Vol] 33 mg/dL High 7-20 [facility] Comment on above: Performed By: #### H EMOG, CMP3M, CRP2, LDH3, FIBGN, DDI2, APTT, FERR3 #### [facility] [address] [place] [address] Potassium [Moles/Vol] 3.9 mmol/L Normal 3.5-5.1 [facility] Comment on above: Performed By: #### H EMOG, CMP3M, CRP2, LDH3, FIBGN, DDI2, APTT, FERR3 #### [facility] [address] [place] [address] Albumin [Mass/Vol] 3.2 g/dL Low 3.5-5.0 [facility] Comment on above: Performed By: #### H EMOG, CMP3M, CRP2, LDH3, FIBGN, DDI2, APTT, FERR3 #### [facility] [address] [place] [address] Chloride [Moles/Vol] 112 mmol/L High 98-107 [facility] Comment on above: Performed By: #### H EMOG, CMP3M, CRP2, LDH3, FIBGN, DDI2, APTT, FERR3 #### [facility] [address] [place] [address] Sodium [Moles/Vol] 137 mmol/L Normal 135-145 [facility] Comment on above: Performed By: #### H EMOG, CMP3M, CRP2, LDH3, FIBGN, DDI2, APTT, FERR3 #### [facility] [address] [place] [address] ALP [Catalytic activity/Vol] 81 U/L Normal 38-126 [facility] Comment on above: Performed By: #### H EMOG, CMP3M, CRP2, LDH3, FIBGN, DDI2, APTT, FERR3 #### [facility] [address] [place] [address] ALT [Catalytic activity/Vol] 67 U/L High 0-49 [facility] Comment on above: Result Comment: The ALT test is performed by an updated assay method. Please note that the reference intervals have been changed and are now sex specific. Performed By: #### H EMOG, CMP3M, CRP2, LDH3, FIBGN, DDI2, APTT, FERR3 #### [facility] [address] [place] [address] Anion gap [Moles/Vol] 9 Normal [facility] Comment on above: Performed By: #### H EMOG, CMP3M, CRP2, LDH3, FIBGN, DDI2, APTT, FERR3 #### [facility] [address] [place] [address] AST [Catalytic activity/Vol] 86 U/L High 15-46 [facility] Comment on above: Performed By: #### H EMOG, CMP3M, CRP2, LDH3, FIBGN, DDI2, APTT, FERR3 #### [facility] [address] [place] [address] Calcium [Mass/Vol] 8.5 mg/dL Normal 8.4-10.4 [facility] Comment on above: Performed By: #### H EMOG, CMP3M, CRP2, LDH3, FIBGN, DDI2, APTT, FERR3 #### [facility] [address] [place] [address] CO2 [Moles/Vol] 17 mmol/L Low 22-30 [facility] Comment on above: Performed By: #### H EMOG, CMP3M, CRP2, LDH3, FIBGN, DDI2, APTT, FERR3 #### [facility] [address] [place] [address] Glucose [Mass/Vol] 139 mg/dL High 70-100 [facility] Comment on above: Performed By: #### H EMOG, CMP3M, CRP2, LDH3, FIBGN, DDI2, APTT, FERR3 #### [facility] [address] [place] [address] Protein [Mass/Vol] 5.8 g/dL Low 6.3-8.2 [facility] Comment on above: Performed By: #### H EMOG, CMP3M, CRP2, LDH3, FIBGN, DDI2, APTT, FERR3 #### [facility] [address] [place] [address] Urea nitrogen [Mass/Vol] 31 mg/dL High 7-20 [facility] Comment on above: Performed By: #### H EMOG, CMP3M, CRP2, LDH3, FIBGN, DDI2, APTT, FERR3 #### [facility] [address] [place] [address] Bilirubin [Mass/Vol] 0.5 mg/dL Normal 0.2-1.3 [facility] Comment on above: Performed By: #### H EMOG, CMP3M, CRP2, LDH3, FIBGN, DDI2, APTT, FERR3 #### [facility] [address] [place] [address] Creatinine [Mass/Vol] 2.37 mg/dL High 0.52-1.25 [facility] Comment on above: Performed By: #### H EMOG, CMP3M, CRP2, LDH3, FIBGN, DDI2, APTT, FERR3 #### [facility] [address] [place] [address] GFR/1.73 sq M predicted among blacks MDRD (S/P/Bld) [Vol rate/Area] 33.9 mL/min/{1.73_m2} Abnormal >60 [facility] Comment on above: Performed By: #### H EMOG, CMP3M, CRP2, LDH3, FIBGN, DDI2, APTT, FERR3 #### [facility] [address] [place] [address] GFR/1.73 sq M predicted among non-blacks MDRD (S/P/Bld) [Vol rate/Area] 29.2 mL/min/{1.73_m2} Abnormal >60 [facility] Comment on above: Result Comment: KDIG [...] FIBGN, DDI2, APTT, FERR3 #### [facility] [address] [place] [address] Potassium [Moles/Vol] 4.3 mmol/L Normal 3.5-5.1 [facility] Comment on above: Performed By: #### H EMOG, CMP3M, CRP2, LDH3, FIBGN, DDI2, APTT, FERR3 #### [facility] [address] [place] [address] Sodium [Moles/Vol] 136 mmol/L Normal 135-145 [facility] Comment on above: Performed By: #### H EMOG, CMP3M, CRP2, LDH3, FIBGN, DDI2, APTT, FERR3 #### [facility] [address] [place] [address] Albumin [Mass/Vol] 3.0 g/dL Low 3.5-5.0 [facility] Comment on above: Performed By: #### H EMOG, CMP3M, CRP2, LDH3, FIBGN, DDI2, APTT, FERR3 #### [facility] [address] [place] [address] Chloride [Moles/Vol] 110 mmol/L High 98-107 [facility] Comment on above: Performed By: #### H EMOG, CMP3M, CRP2, LDH3, FIBGN, DDI2, APTT, FERR3 #### [facility] [address] [place] [address] Comprehensive Metabolic Pane l w/ Reflex to MGon 10-29-2020 Albumin [Mass/Vol] 3.2 g/dL Low 3.5 - 5 g/dL [place] ALP [Catalytic activity/Vol] 71 U/L 38 - 126 U/L [place] ALT [Catalytic activity/Vol] 67 U/L High 0 - 49 U/L [place] Comment on above: The ALT test is perf ormed by an updated assay method. Please note that the reference intervals have been changed and are now sex specific. Anion gap [Moles/Vol] 7 mmol/L [place], [place] AST [Catalytic activity/Vol] 88 U/L High 15 - 46 U/L [place] Bilirubin Ql (U) 0.6 mg/dL 0.2 - 1.3 mg/dL [place] Calcium [Mass/Vol] 8.9 mg/dL 8.4 - 10. 4 mg/dL [place] Chloride [Moles/Vol] 112 mmol/L High 98 - 10 7 mmol/L [place] CO2 [Moles/Vol] 18 mmol/L Low 22 - 30 mmol/L [place] Creatinine [Mass/Vol] 2.24 mg/dL High 0.52 - 1.25 mg/dL [place] EGFR IF NonAfrican [place] 31.3 mL/min Abnormal >60 [place] Comment on above: KDIGO guidelines pro [...] (S/P/Bld) [Vol rate/Area] 36.2 mL/min/{1.73_m2} Abnormal >60 [place] Glucose [Mass/Vol] 132 mg/dL High 70 - 100 mg/dL [place] Interpretation and review of laboratory results Abnormal [place] Potassium [Moles/Vol] 3.9 mmol/L 3.5 - 5.1 mmol/L [place] Protein [Mass/Vol] 6.0 g/dL Low 6.3 - 8.2 g/dL [place] Sodium [Moles/Vol] 137 mmol/L 135 - 145 mmol/L [place] Urea nitrogen [Mass/Vol] 33 mg/dL High 7 - 20 mg/dL [place] Test Performed by [facility], [address] [place], [place] [address] [place] Albumin [Mass/Vol] 3.0 g/dL Low 3.5 - 5 g/dL [place] ALP [Catalytic activity/Vol] 81 U/L 38 - 126 U/L [place] ALT [Catalytic activity/Vol] 67 U/L High 0 - 49 U/L [place] Comment on above: The ALT test is perf ormed by an updated assay method. Please note that the reference intervals have been changed and are now sex specific. Anion gap [Moles/Vol] 9 mmol/L [place] AST [Catalytic activity/Vol] 86 U/L High 15 - 46 U/L [place] Bilirubin Ql (U) 0.5 mg/dL 0.2 - 1.3 mg/dL [place] Calcium [Mass/Vol] 8.5 mg/dL 8.4 - 10. 4 mg/dL [place] Chloride [Moles/Vol] 110 mmol/L High 98 - 10 7 mmol/L [place] CO2 [Moles/Vol] 17 mmol/L Low 22 - 30 mmol/L [place] Creatinine [Mass/Vol] 2.37 mg/dL High 0.52 - 1.25 mg/dL [place] EGFR IF NonAfrican [place] 29.2 mL/min Abnormal >60 [place] Comment on above: KDIGO guidelines pro [...] (S/P/Bld) [Vol rate/Area] 33.9 mL/min/{1.73_m2} Abnormal >60 [place] Glucose [Mass/Vol] 139 mg/dL High 70 - 100 mg/dL [place] Potassium [Moles/Vol] 4.3 mmol/L 3.5 - 5.1 mmol/L [place] Protein [Mass/Vol] 5.8 g/dL Low 6.3 - 8.2 g/dL [place] Sodium [Moles/Vol] 136 mmol/L 135 - 145 mmol/L [place] Urea nitrogen [Mass/Vol] 31 mg/dL High 7 - 20 mg/dL [place] D-Dimer, Innovanceon 12-16-2 020 D-Dimer, Innovance 1.54 mg/L High 0.00-0.50 [facility] [employer] [facility] Comment on above: Result Comment: Inno quach D-Dimer values of <0.50 mg/L FEU can be used in combination with a pre-test probability model (e.g. Well's) to exclude pulmonary embolism (PE) disease, as well as an aid in the diagnosis of deep vein thrombosis (DVT). Performed By: #### H EMOG, CMP3M, CRP2, LDH3, FIBGN, DDI2, APTT, FERR3 #### [facility] [address] [place] [address] D-Dimer, Innovance 1.23 mg/L High 0.00-0.50 [facility] Comment on above: Result Comment: Inno quach D-Dimer values of <0.50 mg/L FEU can be used in combination with a pre-test probability model (e.g. Well's) to exclude pulmonary embolism (PE) disease, as well as an aid in the diagnosis of deep vein thrombosis (DVT). Performed By: #### H EMOG, CMP3M, CRP2, LDH3, FIBGN, DDI2, APTT, FERR3 #### [facility] [address] [place] [address] D-Dimer, Quantitativeon 12-1 D-Dimer, Quant 1.54 mg/L High 0 - 0.5 mg/L [facility], [place] Comment on above: Innovance D-Dimer va lues of <0.50 mg/L FEU can be used in combination with a pre-test probability model (e.g. Well's) to exclude pulmonary embolism (PE) disease, as well as an aid in the diagnosis of deep vein thrombosis (DVT). D-Dimer, Quant 1.23 mg/L High 0 - 0.5 mg/L [facility], [place] Comment on above: Innovance D-Dimer va lues of <0.50 mg/L FEU can be used in combination with a pre-test probability model (e.g. Well's) to exclude pulmonary embolism (PE) disease, as well as an aid in the diagnosis of deep vein thrombosis (DVT). EKG 12 Lead - Chest Painon 1 12-30-2019 Michel, [facility] Incoming Cardiology Results From Kiah/Mandy - 10/29/2020 9:41 AM EST [facility] [employer] [facility] Test Date: 2020-10-28 Pat Name: Reggie León Department: 2AED Room: 468 Gender: M Side Panel Hanger: PARESH : 1965 Requested By: ANDREW SILVER Order Number: [id number] Reading MD: Usama Johnston Intervals [place] Rate: 85 P: 15 TN: 184 QRS: -12 QRSD: 104 T: 73 QT: 408 QTc: 486 Interpretive Statements SINUS RHYTHM Electronically Signed On 10-29-2020 9:40:09 EST by [facility] Test Date: 2020-10-28 Pat Name: Reggie León Department: 2AED Room: 468 Gender: M Side Panel Hanger: PARESH : 1965 Requested By: ANDREW SILVER Order Number: [id number] Reading MD: Usama Cedillo Measurements Intervals [place] Rate: 85 P: 15 TN: 184 QRS: -12 QRSD: 104 T: 73 QT: 408 QTc: 486 Interpretive Statements SINUS RHYTHM Electronically Signed On 10-29-2020 9:40:09 EST by Usama [facility] Ferritinon 10-29-2020 Ferritin [Mass/Vol] 714 ng/mL High 18-464 [facility] Comment on above: Performed By: #### H EMOG, CMP3M, CRP2, LDH3, FIBGN, DDI2, APTT, FERR3 #### [facility] [address] [place] [address] Ferritin [Mass/Vol] 714 ng/mL High 18 - 464 ng/mL [place] Interpretation and review of laboratory results Abnormal [place] Test Performed by [facility], [address], [place], [place] [address] [place] Fibrinogenon 10-29-2020 Fibrinogen 534 mg/dL High 200-400 [facility] Comment on above: Performed By: #### H EMOG, CMP3M, CRP2, LDH3, FIBGN, DDI2, APTT, FERR3 #### [facility] [address] [place] [address] Fibrinogen 534 mg/dL High 200 - 400 mg/dL [place] Fibrinogen 587 mg/dL High 200-400 [facility] Comment on above: Performed By: #### H EMOG, CMP3M, CRP2, LDH3, FIBGN, DDI2, APTT, FERR3 #### [facility] [address] [place] [address] Fibrinogen 587 mg/dL High 200 - 400 mg/dL [place] Hemogramon 10-29-2020 Erythrocyte distribution width (RBC) [Ratio] 14.2 % Normal 11.5-14.5 [facility] Comment on above: Performed By: #### H EMOG, CMP3M, CRP2, LDH3, FIBGN, DDI2, APTT, FERR3 #### [facility] [address] [place] [address] Hematocrit (Bld) [Volume fraction] 37.3 % Low 40.0-52.0 [facility] Comment on above: Performed By: #### H EMOG, CMP3M, CRP2, LDH3, FIBGN, DDI2, APTT, FERR3 #### [facility] [address] [place] [address] Hemoglobin (Bld) [Mass/Vol] 12.6 g/dL Low 13.0-18.0 [facility] Comment on above: Performed By: #### H EMOG, CMP3M, CRP2, LDH3, FIBGN, DDI2, APTT, FERR3 #### [facility] [address] [place] [address] MCH (RBC) [Entitic mass] 29.2 pg Normal 26.0-34.0 [facility] Comment on above: Performed By: #### H EMOG, CMP3M, CRP2, LDH3, FIBGN, DDI2, APTT, FERR3 #### [facility] [address] [place] [address] MCHC (RBC) [Mass/Vol] 33.7 % Normal 32.0-36.0 [facility] Comment on above: Performed By: #### H EMOG, CMP3M, CRP2, LDH3, FIBGN, DDI2, APTT, FERR3 #### [facility] [address] [place] [address] MCV (RBC) [Entitic vol] 86.7 fL Normal 80.0-98.0 [facility] Comment on above: Performed By: #### H EMOG, CMP3M, CRP2, LDH3, FIBGN, DDI2, APTT, FERR3 #### [facility] [address] [place] [address] Platelet mean volume (Bld) [Entitic vol] 7.6 fL Normal 7.4-10.4 [facility] Comment on above: Performed By: #### H EMOG, CMP3M, CRP2, LDH3, FIBGN, DDI2, APTT, FERR3 #### [facility] [address] [place] [address] Platelets (Bld) [#/Vol] 255 10*3/uL Normal 140-440 [facility] Comment on above: Performed By: #### H EMOG, CMP3M, CRP2, LDH3, FIBGN, DDI2, APTT, FERR3 #### [facility] [address] [place] [address] RBC (Bld) [#/Vol] 4.30 10*6/uL Low 4.40-5.90 [facility] Comment on above: Performed By: #### H EMOG, CMP3M, CRP2, LDH3, FIBGN, DDI2, APTT, FERR3 #### [facility] [address] [place] [address] WBC (Bld) [#/Vol] 7.8 10*3/uL Normal 3.6-10.7 [facility] Comment on above: Performed By: #### H EMOG, CMP3M, CRP2, LDH3, FIBGN, DDI2, APTT, FERR3 #### [facility] [address] [place] [address] Hemogram w/ Autodiffon 10-29 Abs Baso Cnt 0.0 10*3/uL Normal 0.0-0.2 [facility] Comment on above: Performed By: #### H EMOG, CMP3M, CRP2, LDH3, FIBGN, DDI2, APTT, FERR3 #### [facility] [address] [place] [address] Abs Neutrophile Cnt 3.5 10*3/uL Normal 1.8-7.0 [facility] Comment on above: Performed By: #### H EMOG, CMP3M, CRP2, LDH3, FIBGN, DDI2, APTT, FERR3 #### [facility] [address] [place] [address] Basophils/100 WBC (Bld) 0.3 % Normal 0.0-2.0 [facility] Comment on above: Performed By: #### H EMOG, CMP3M, CRP2, LDH3, FIBGN, DDI2, APTT, FERR3 #### [facility] [address] [place] [address] Eosinophils (Bld) [#/Vol] 0.0 10*3/uL Normal 0.0-0.5 [facility] Comment on above: Performed By: #### H EMOG, CMP3M, CRP2, LDH3, FIBGN, DDI2, APTT, FERR3 #### [facility] [address] [place] [address] Eosinophils/100 WBC (Bld) 0.0 % Low 1.0-6.0 [facility] Comment on above: Performed By: #### H EMOG, CMP3M, CRP2, LDH3, FIBGN, DDI2, APTT, FERR3 #### [facility] [address] [place] [address] Erythrocyte distribution width (RBC) [Ratio] 13.8 % Normal 11.5-14.5 [facility] Comment on above: Performed By: #### H EMOG, CMP3M, CRP2, LDH3, FIBGN, DDI2, APTT, FERR3 #### [facility] [address] [place] [address] Granulocytes/100 WBC (Bld) 79.4 % Normal 40.0-80.0 [facility] Comment on above: Performed By: #### H EMOG, CMP3M, CRP2, LDH3, FIBGN, DDI2, APTT, FERR3 #### [facility] [address] [place] [address] Hematocrit (Bld) [Volume fraction] 36.7 % Low 40.0-52.0 [facility] Comment on above: Performed By: #### H EMOG, CMP3M, CRP2, LDH3, FIBGN, DDI2, APTT, FERR3 #### [facility] [address] [place] [address] Hemoglobin (Bld) [Mass/Vol] 12.2 g/dL Low 13.0-18.0 [facility] Comment on above: Performed By: #### H EMOG, CMP3M, CRP2, LDH3, FIBGN, DDI2, APTT, FERR3 #### [facility] [address] [place] [address] Lymphocytes (Bld) [#/Vol] 0.4 10*3/uL Low 1.0-4.3 [facility] Comment on above: Performed By: #### H EMOG, CMP3M, CRP2, LDH3, FIBGN, DDI2, APTT, FERR3 #### [facility] [address] [place] [address] Lymphocytes/100 WBC (Bld) 8.8 % Low 20.0-40.0 [facility] Comment on above: Performed By: #### H EMOG, CMP3M, CRP2, LDH3, FIBGN, DDI2, APTT, FERR3 #### [facility] [address] [place] [address] MCH (RBC) [Entitic mass] 29.1 pg Normal 26.0-34.0 [facility] Comment on above: Performed By: #### H EMOG, CMP3M, CRP2, LDH3, FIBGN, DDI2, APTT, FERR3 #### [facility] [address] [place] [address] MCHC (RBC) [Mass/Vol] 33.1 % Normal 32.0-36.0 [facility] Comment on above: Performed By: #### H EMOG, CMP3M, CRP2, LDH3, FIBGN, DDI2, APTT, FERR3 #### [facility] [address] [place] [address] MCV (RBC) [Entitic vol] 87.8 fL Normal 80.0-98.0 [facility] Comment on above: Performed By: #### H EMOG, CMP3M, CRP2, LDH3, FIBGN, DDI2, APTT, FERR3 #### [facility] [address] [place] [address] Monocytes (Bld) [#/Vol] 0.5 10*3/uL Normal 0.0-0.8 [facility] Comment on above: Performed By: #### H EMOG, CMP3M, CRP2, LDH3, FIBGN, DDI2, APTT, FERR3 #### [facility] [address] [place] [address] Monocytes/100 WBC (Bld) 11.5 % High 2.0-10.0 [facility] Comment on above: Performed By: #### H EMOG, CMP3M, CRP2, LDH3, FIBGN, DDI2, APTT, FERR3 #### [facility] [address] [place] [address] Platelet mean volume (Bld) [Entitic vol] 7.9 fL Normal 7.4-10.4 [facility] Comment on above: Performed By: #### H EMOG, CMP3M, CRP2, LDH3, FIBGN, DDI2, APTT, FERR3 #### [facility] [address] [place] [address] Platelets (Bld) [#/Vol] 231 10*3/uL Normal 140-440 [facility] Comment on above: Performed By: #### H EMOG, CMP3M, CRP2, LDH3, FIBGN, DDI2, APTT, FERR3 #### [facility] [address] [place] [address] RBC (Bld) [#/Vol] 4.19 10*6/uL Low 4.40-5.90 [facility] Comment on above: Performed By: #### H EMOG, CMP3M, CRP2, LDH3, FIBGN, DDI2, APTT, FERR3 #### [facility] [address] [place] [address] WBC (Bld) [#/Vol] 4.4 10*3/uL Normal 3.6-10.7 [facility] Comment on above: Performed By: #### H EMOG, CMP3M, CRP2, LDH3, FIBGN, DDI2, APTT, FERR3 #### [facility] [address] [place] [address] LDHon 10-29-2020 LDH 676 U/L High 120-246 [facility] Comment on above: Performed By: #### H EMOG, CMP3M, CRP2, LDH3, FIBGN, DDI2, APTT, FERR3 #### [facility] [address] [place] [address] Lactate Dehydrogenaseon 10-14 LD 676 U/L High 120 - 246 U/L [place] Lithiumon 10-29-2020 [place] [Moles/Vol] 0.7 mmol/L Normal 0.6-1.2 [facility] Comment on above: Performed By: #### H EMOG, CMP3M, CRP2, LDH3, FIBGN, DDI2, APTT, FERR3 #### [facility] [address] [place] [address] [place] Levelon 10-29-2020 [place] Lvl 0.7 mmol/L 0.6 - 1.2 mmol/L [facility] [place] Otheron 10-29-2020 Interpretation and review of laboratory results Abnormal [place] Test Performed by [facility], [facility] [address] [place], [place] [id number] [place] [address] Interpretation and review of laboratory results Abnormal [place] Test Performed by [facility], [facility] [address] [place], [place] [id number] [place] [address] Interpretation and review of laboratory results Abnormal [place] Test Performed by [facility], [facility] [address] [place], [place] [id number] [place] [address] Procalcitoninon 10-29-2020 Procalcitonin 0.31 ng/mL Abnormal <0.10 [facility] Comment on above: Performed By: #### H EMOG, CMP3M, CRP2, LDH3, FIBGN, DDI2, APTT, FERR3 #### [facility] [address] [place] [address] Interpretation and review of laboratory results Abnormal [place] Procalcitonin 0.31 ng/mL Abnormal <0.10 [place] Sodium [Moles/Vol] See Below [place] Comment on above: PCT <0.50 = Low risk of severe sepsis and/or septic shock. PCT >2.00 = High risk of severe sepsis and/or septic shock. Test Performed by [facility], [address] [place] [address] [place] Vit D 25-OH, Totalon 020 Vit D 25-OH, Total 69 ng/mL Normal 30-100 [facility] Comment on above: Result Comment: Ther apy is based on measurement of Total 25-OHD with the following classification levels: Less than 20 ng/mL: Indicative of Vit D deficiency 20-30 ng/mL: Suggests Vit D insufficiency Optimal: Greater than or equal to 30 ng/mL Test performed by [employer], measuring Total Vitamin D, not individual fractions. Performed By: #### H EMOG, CMP3M, CRP2, LDH3, FIBGN, DDI2, APTT, FERR3 #### [facility] [address] [place] [address] Vitamin D 25 Hydroxyon 10-29 Vit D, 25-Hydroxy 69 ng/mL 30 - 100 ng/mL [place] Comment on above: Therapy is based on measurement of Total 25-OHD with the following classification levels: Less than 20 ng/mL: Indicative of Vit D deficiency 20-30 ng/mL: Suggests Vit D insufficiency Optimal: Greater than or equal to 30 ng/mL Test performed by [employer] Competitive Immunoassay, measuring Total Vitamin D, not individual fractions. Test Performed by [facility], [address], [place], [place] [address] [place] Arterial Blood Gas Respirato sarah 10-28-2020 Base Excess -5.8 mmol/L Low -3.0-3.0 [facility] Comment on above: Performed By: #### A BGE #### [facility] [address] [place] [address] CO2 [Moles/Vol] 19.3 mmol/L Low 23.0-27.0 [facility] Comment on above: Performed By: #### A BGE #### [facility] [address] [place] [address] FIO2 21 Normal [facility] Comment on above: Result Comment: Perf ormed by CLIA ID: [id number] [place] Performed By: #### A BGE #### [facility] [address] [place] [address] HCO3 (Bld) [Moles/Vol] 18.3 mmol/L Low 21.0-25.0 [facility] Comment on above: Performed By: #### A BGE #### [facility] [address] [place] [address] Oxygen (Bld) [Partial pressure] 69.8 mm[Hg] Low 80.0-100.0 [facility] Comment on above: Performed By: #### A BGE #### [facility] [address] [place] [address] Oxygen saturation in Blood 93.6 % Low 95.0-100.0 [facility] Comment on above: Performed By: #### A BGE #### [place] [address] [place] [address] pCO2 31.2 mm[Hg] Low 35.0-45.0 [facility] Comment on above: Performed By: #### A BGE #### [facility] [address] [place] [address] pH (Bld) 7.376 Normal 7.350-7.45 0 [facility] Comment on above: Performed By: #### A BGE #### [facility] [address] [place] [address] Brain Natriuretic Peptideon 10-28-2020 Natriuretic peptide B (Bld) [Mass/Vol] 47 pg/mL 0 - 125 pg/mL [facility], [place] CR Chest Portableon 10-28-20 20 CR Chest Portable Patient Name: REGGIE WILSON Diagnostic Radiology ACCESSION EXAM DATE/TIME PROCEDURE ORDERING PROVIDER [id number] 10/28/2020 15:05 EST CR Chest Portable BALAJI SILVER DANIEL M CPT code 50495 Reason For Exam (CR Chest Portable) dyspnea [...] and Time: 10/28/2020 3:21 Normal [facility] Comp Metabolic Panelon 10-28 ALP [Catalytic activity/Vol] 82 U/L Normal 38-126 [facility] Comment on above: Performed By: #### H EMOG, CMP3M, CRP2, LDH3, FIBGN, DDI2, APTT, FERR3 #### [facility] [address] [place] [address] ALT [Catalytic activity/Vol] 60 U/L High 0-49 [facility] Comment on above: Result Comment: The ALT test is performed by an updated assay method. Please note that the reference intervals have been changed and are now sex specific. Performed By: #### H EMOG, CMP3M, CRP2, LDH3, FIBGN, DDI2, APTT, FERR3 #### [facility] [address] [place] [address] Calcium [Mass/Vol] 8.6 mg/dL Normal 8.4-10.4 [facility] Comment on above: Performed By: #### H EMOG, CMP3M, CRP2, LDH3, FIBGN, DDI2, APTT, FERR3 #### [facility] [address] [place] [address] Glucose [Mass/Vol] 122 mg/dL High 70-100 [facility] Comment on above: Performed By: #### H EMOG, CMP3M, CRP2, LDH3, FIBGN, DDI2, APTT, FERR3 #### [facility] [address] [place] [address] Protein [Mass/Vol] 6.2 g/dL Low 6.3-8.2 [facility] Comment on above: Performed By: #### H EMOG, CMP3M, CRP2, LDH3, FIBGN, DDI2, APTT, FERR3 #### [facility] [address] [place] [address] Urea nitrogen [Mass/Vol] 35 mg/dL High 7-20 [facility] Comment on above: Performed By: #### H EMOG, CMP3M, CRP2, LDH3, FIBGN, DDI2, APTT, FERR3 #### [facility] [address] [place] [address] Anion gap [Moles/Vol] 9 Normal [facility] Comment on above: Performed By: #### H EMOG, CMP3M, CRP2, LDH3, FIBGN, DDI2, APTT, FERR3 #### [facility] [address] [place] [address] AST [Catalytic activity/Vol] 87 U/L High 15-46 [facility] Comment on above: Performed By: #### H EMOG, CMP3M, CRP2, LDH3, FIBGN, DDI2, APTT, FERR3 #### [facility] [address] [place] [address] Bilirubin [Mass/Vol] 0.6 mg/dL Normal 0.2-1.3 [facility] Comment on above: Performed By: #### H EMOG, CMP3M, CRP2, LDH3, FIBGN, DDI2, APTT, FERR3 #### [facility] [address] [place] [address] CO2 [Moles/Vol] 22 mmol/L Normal 22-30 [facility] Comment on above: Performed By: #### H EMOG, CMP3M, CRP2, LDH3, FIBGN, DDI2, APTT, FERR3 #### [facility] [facility] [address] [place] [address] Creatinine [Mass/Vol] 2.96 mg/dL High 0.52-1.25 [facility] Comment on above: Performed By: #### H EMOG, CMP3M, CRP2, LDH3, FIBGN, DDI2, APTT, FERR3 #### [facility] [address] [place] [address] GFR/1.73 sq M predicted among blacks MDRD (S/P/Bld) [Vol rate/Area] 25.9 mL/min/{1.73_m2} Abnormal >60 [facility] Comment on above: Performed By: #### H EMOG, CMP3M, CRP2, LDH3, FIBGN, DDI2, APTT, FERR3 #### [facility] [address] [place] [address] GFR/1.73 sq M predicted among non-blacks MDRD (S/P/Bld) [Vol rate/Area] 22.3 mL/min/{1.73_m2} Abnormal >60 [facility] Comment on above: Result Comment: KDIG [...] FIBGN, DDI2, APTT, FERR3 #### [facility] [address] [place] [address] Chloride [Moles/Vol] 101 mmol/L Normal 98-107 [facility] Comment on above: Performed By: #### H EMOG, CMP3M, CRP2, LDH3, FIBGN, DDI2, APTT, FERR3 #### [facility] [address] [place] [address] Potassium [Moles/Vol] 3.1 mmol/L Low 3.5-5.1 [facility] Comment on above: Performed By: #### H EMOG, CMP3M, CRP2, LDH3, FIBGN, DDI2, APTT, FERR3 #### [facility] [address] [place] [address] Sodium [Moles/Vol] 133 mmol/L Low 135-145 [facility] Comment on above: Performed By: #### H EMOG, CMP3M, CRP2, LDH3, FIBGN, DDI2, APTT, FERR3 #### [facility] [address] [place] [address] Albumin [Mass/Vol] 3.3 g/dL Low 3.5-5.0 [facility] Comment on above: Performed By: #### H EMOG, CMP3M, CRP2, LDH3, FIBGN, DDI2, APTT, FERR3 #### [facility] [address] [place] [address] Complete Urinalysison 2019 Amorphous Crystal Few Abnormal Negative [facility] Comment on above: Result Comment: . Performed By: #### C UA2 #### [facility] [address] [place] [address] Appearance (U) Clear Normal Clear [facility] Comment on above: Result Comment: . Performed By: #### C UA2 #### [facility] [address] [place] [address] Bacteria LM.HPF (Urine sed) [#/Area] Few Abnormal Negative [facility] Comment on above: Result Comment: . Performed By: #### C UA2 #### [facility] [address] [place] [address] Bilirubin,Urine Negative Normal Negative [facility] Comment on above: Result Comment: . Performed By: #### C UA2 #### [facility] [address] [place] [address] Cast, Granular 0 - 2 Abnormal Negative [facility] Comment on above: Result Comment: . Performed By: #### C UA2 #### [facility] [address] [place] [address] Cast, Hyaline 3 - 5 Abnormal Negative [facility] Comment on above: Result Comment: . Performed By: #### C UA2 #### [facility] [address] [place] [address] Color (U) Yellow Normal Lt. Yellow [facility] Comment on above: Result Comment: . Performed By: #### C UA2 #### [facility] [address] [place] [address] Glucose Ql (U) Normal Normal Normal (<70) [facility] Comment on above: Result Comment: . Performed By: #### C UA2 #### [facility] [address] [place] [address] Ketone,Urine Negative Normal Negative [facility] Comment on above: Result Comment: . Performed By: #### C UA2 #### [facility] [address] [place] [address] Leukocytes,Urine Negative Normal Negative [facility] Comment on above: Result Comment: . Performed By: #### C UA2 #### [facility] [address] [place] [address] Mucous Threads Few Normal Negative [facility] Comment on above: Result Comment: . Performed By: #### C UA2 #### [facility] [address] [place] [address] Nitrites,Urine Negative Normal Negative [facility] Comment on above: Result Comment: . Performed By: #### C UA2 #### [facility] [address] [place] [address] Non-Squamous Epithelial < 1 Abnormal Negative [facility] Comment on above: Result Comment: . Performed By: #### C UA2 #### [facility] [address] [place] [address] Occult Blood,Urine Negative Normal Negative [facility] Comment on above: Result Comment: . Performed By: #### C UA2 #### [facility] [address] [place] [address] pH (U) 5.5 Normal 5.0-8.0 [facility] Comment on above: Result Comment: . Performed By: #### C UA2 #### [facility] [address] [place] [address] Protein (U) [Mass/Vol] 20 mg/dL Abnormal Negative [facility] Comment on above: Result Comment: . Performed By: #### C UA2 #### [facility] [address] [place] [address] RBC LM.HPF (Urine sed) [#/Area] 0 - 2 Normal 0-2 [facility] Comment on above: Result Comment: . Performed By: #### C UA2 #### [facility] [address] [place] [address] Specific [place],Urine 1.015 Normal 1.005 - 1.030 [facility] Comment on above: Result Comment: . Performed By: #### C UA2 #### [facility] [address] [place] [address] Squamous Epithelial 0 - 2 Normal 3-5 [facility] Comment on above: Result Comment: . Performed By: #### C UA2 #### [facility] [address] [place] [address] Urobilinogen,Urine Normal Normal Normal (0-1) [facility] Comment on above: Result Comment: . Performed By: #### C UA2 #### [facility] [address] [place] [address] WBC LM.HPF (Urine sed) [#/Area] 0 - 2 Normal 0-5 [facility] Comment on above: Result Comment: . Performed By: #### C UA2 #### [facility] [address] [place] [address] Comprehensive Metabolic Pane rahul 10-28-2020 Albumin [Mass/Vol] 3.3 g/dL Low 3.5 - 5 g/dL [place] ALP [Catalytic activity/Vol] 82 U/L 38 - 126 U/L [place] ALT [Catalytic activity/Vol] 60 U/L High 0 - 49 U/L [place] Comment on above: The ALT test is perf ormed by an updated assay method. Please note that the reference intervals have been changed and are now sex specific. Anion gap [Moles/Vol] 9 mmol/L [place] AST [Catalytic activity/Vol] 87 U/L High 15 - 46 U/L [place] Bilirubin Ql (U) 0.6 mg/dL 0.2 - 1.3 mg/dL [place] Calcium [Mass/Vol] 8.6 mg/dL 8.4 - 10. 4 mg/dL [place] Chloride [Moles/Vol] 101 mmol/L 98 - 10 7 mmol/L [place] CO2 [Moles/Vol] 22 mmol/L 22 - 30 mmol/L [place] Creatinine [Mass/Vol] 2.96 mg/dL High 0.52 - 1.25 mg/dL [place] EGFR IF NonAfrican Afghan 22.3 mL/min Abnormal >60 [place] Comment on above: KDIGO guidelines pro [...] (S/P/Bld) [Vol rate/Area] 25.9 mL/min/{1.73_m2} Abnormal >60 [place] Glucose [Mass/Vol] 122 mg/dL High 70 - 100 mg/dL [place] Interpretation and review of laboratory results Abnormal [place] Potassium [Moles/Vol] 3.1 mmol/L Low 3.5 - 5.1 mmol/L [place] Protein [Mass/Vol] 6.2 g/dL Low 6.3 - 8.2 g/dL [place] Sodium [Moles/Vol] 133 mmol/L Low 135 - 145 mmol/L [place] Urea nitrogen [Mass/Vol] 35 mg/dL High 7 - 20 mg/dL [place] ED Provider Noteon 0 ED Provider Note Emergency Department Encounter New [facility] Patient: Reggie León : 1965 Date of Evaluation: 10/28/2020 ED Supervising Physician: Otf Long, I independently examined and evaluated Reggie León. In brief, Reggie León is a 55 y.o. male that presents to the emergency department with increased shortness of breath from his usp. Patient has a known COVID-19 infection. Patient [...] and cough. CELINA spoke with the patient's usp who states that he was on 4 [...] EKG: Sinus rhythm rate 85, QTC 486, TN interval 184, Q wave in lead 3, [...] [employer] Otf Long DO 10/28/20 1823 [facility] ED [facility] eMERGENCY dEPARTMENT eNCOUnter Pt Name: Reggie León Birthdate 1965 Date of evaluation: 10/28/2020 Provider: Andrew Silver, NICKI - WRAP CHECKER This patient was seen in conjunction with [...] file Gets together: Not on file Attends druze service: Not on file Active member of [...] History Narrative ? Not on file SCREENINGS @FLOW([id number])@ PHYSICAL EXAM (5+ for level 4, 8+ [...] Department physician in the absence of a green promotions specialist. Please see their accompanying note for interpretation. RADIOLOGY (Per EmergencyPhysician): Interpretation per the Radiologist below, if available at the time of this note: Xr Chest Portable Result Date: 10/28/2020 Patient Name: REGGIE LEÓN Diagnostic Radiology ACCESSION EXAM DATE/TIME PROCEDURE ORDERING PROVIDER [id number] 10/28/2020 15:05 EST CR Chest Portable BALAJI SILVER DANIEL M CPT code 94273 Reason For Exam (CR Chest Portable) dyspnea [...] (*) eGFR 25.9 (*) EGFR IF NonAfrican Afghan 22.3 (*) Albumin,Serum 3.3 (*) Total Protein 6.2 (*) ALT 60 (*) AST 87 (*) All other components within normal limits Narrative: Test Performed by [facility], [address] [place] [address] CBC WITH AUTO DIFFERENTIAL - Abnormal; Notable for the following components: Hemoglobin 12.9 (*) Hematocrit 38.1 (*) Lymphocyte % 13.6 (*) Monocytes 17.8 (*) Eosinophils 0.8 (*) Absolute Lymph # 0.6 (*) All other components within normal limits Narrative: Test Performed by [facility], [facility] [address] [place] [address] POCT ARTERIAL - Abnormal; Notable for the following components: pCO2, Arterial 31.2 (*) pO2, Arterial 69.8 (*) HCO3, Arterial 18.3 (*) Base Excess, Arterial -5.8 (*) O2 Sat, Arterial 93.6 (*) TCO2, Arterial 19.3 (*) All other components within normal limits Narrative: Test Performed by [facility], [address] [place] [address] BRAIN NATRIURETIC PEPTIDE Narrative: Test Performed by [facility], [address] [place] [address] TROPONIN Narrative: Test Performed by [facility], [facility] [address] [place] [address] LACTIC ACID, PLASMA Narrative: Test Performed by [facility], [address], [place], [place] [address] URINALYSIS POCT ARTERIAL All other labs were [...] Bustillo CNP 10/28/20 1750 Normal [facility] Hemogram (CBC) w/Auto Diffon 10-28-2020 Absolute Baso # 0.0 10*3/uL 0 - 0.2 10*3/uL [place] Absolute Neut # 3.1 10*3/uL 1.8 - 7 10*3/uL [place] Basophils/100 WBC (Bld) 0.7 % 0 - 2 % [place] Eosinophils (Bld) [#/Vol] 0.0 10*3/uL 0 - 0.5 10*3/uL [place] Eosinophils/100 WBC (Bld) 0.8 % Low 1 - 6 % [place] Erythrocyte distribution width (RBC) [Ratio] 14.0 % 11.5 - 14.5 % [place] Granulocytes/100 WBC (Bld) 67.1 % 40 - 80 % [place] Hematocrit (Bld) [Volume fraction] 38.1 % Low 40 - 52 % [place] Hemoglobin (Bld) [Mass/Vol] 12.9 g/dL Low 13 - 18 g/dL [place] Interpretation and review of laboratory results Abnormal [place] Lymphocytes (Bld) [#/Vol] 0.6 10*3/uL Low 1 - 4.3 10*3/uL [place] Lymphocytes/100 WBC (Bld) 13.6 % Low 20 - 40 % [place] MCH (RBC) [Entitic mass] 29.2 pg 26 - 34 pg [place] MCHC (RBC) [Mass/Vol] 33.9 % 32 - 36 % [place] MCV (RBC) [Entitic vol] 86.2 fL 80 - 98 fL [place] Monocytes (Bld) [#/Vol] 0.8 10*3/uL 0 - 0.8 10*3/uL [place] Monocytes/100 WBC (Bld) 17.8 % High 2 - 10 % [place] Platelet mean volume (Bld) [Entitic vol] 7.4 fL 7.4 - 10.4 fL [place] Platelets (Bld) [#/Vol] 223 10*3/uL 140 - 440 10*3/uL [place] RBC (Bld) [#/Vol] 4.42 10*6/uL 4.4 - 5.9 10*6/uL [place] WBC (Bld) [#/Vol] 4.6 10*3/uL 3.6 - 10.7 10*3/uL [place] Test Performed by [facility], [address] [place] [address] [place] Hemogram w/ Autodiffon 10-28 Abs Baso Cnt 0.0 10*3/uL Normal 0.0-0.2 [facility] Comment on above: Performed By: #### H EMOG, CMP3M, CRP2, LDH3, FIBGN, DDI2, APTT, FERR3 #### [facility] [address] [place] [address] Abs Neutrophile Cnt 3.1 10*3/uL Normal 1.8-7.0 [facility] Comment on above: Performed By: #### H EMOG, CMP3M, CRP2, LDH3, FIBGN, DDI2, APTT, FERR3 #### [facility] [address] [place] [address] Basophils/100 WBC (Bld) 0.7 % Normal 0.0-2.0 [facility] Comment on above: Performed By: #### H EMOG, CMP3M, CRP2, LDH3, FIBGN, DDI2, APTT, FERR3 #### [facility] [address] [place] [address] Eosinophils (Bld) [#/Vol] 0.0 10*3/uL Normal 0.0-0.5 [facility] Comment on above: Performed By: #### H EMOG, CMP3M, CRP2, LDH3, FIBGN, DDI2, APTT, FERR3 #### [facility] [address] [place] [address] Eosinophils/100 WBC (Bld) 0.8 % Low 1.0-6.0 [facility] Comment on above: Performed By: #### H EMOG, CMP3M, CRP2, LDH3, FIBGN, DDI2, APTT, FERR3 #### [facility] [address] [place] [address] Erythrocyte distribution width (RBC) [Ratio] 14.0 % Normal 11.5-14.5 [facility] Comment on above: Performed By: #### H EMOG, CMP3M, CRP2, LDH3, FIBGN, DDI2, APTT, FERR3 #### [facility] [address] [place] [address] Granulocytes/100 WBC (Bld) 67.1 % Normal 40.0-80.0 [facility] Comment on above: Performed By: #### H EMOG, CMP3M, CRP2, LDH3, FIBGN, DDI2, APTT, FERR3 #### [facility] [address] [place] [address] Hematocrit (Bld) [Volume fraction] 38.1 % Low 40.0-52.0 [facility] Comment on above: Performed By: #### H EMOG, CMP3M, CRP2, LDH3, FIBGN, DDI2, APTT, FERR3 #### [facility] [address] [place] [address] Hemoglobin (Bld) [Mass/Vol] 12.9 g/dL Low 13.0-18.0 [facility] Comment on above: Performed By: #### H EMOG, CMP3M, CRP2, LDH3, FIBGN, DDI2, APTT, FERR3 #### [facility] [address] [place] [address] Lymphocytes (Bld) [#/Vol] 0.6 10*3/uL Low 1.0-4.3 [facility] Comment on above: Performed By: #### H EMOG, CMP3M, CRP2, LDH3, FIBGN, DDI2, APTT, FERR3 #### [facility] [address] [place] [address] Lymphocytes/100 WBC (Bld) 13.6 % Low 20.0-40.0 [facility] Comment on above: Performed By: #### H EMOG, CMP3M, CRP2, LDH3, FIBGN, DDI2, APTT, FERR3 #### [facility] [address] [place] [address] MCH (RBC) [Entitic mass] 29.2 pg Normal 26.0-34.0 [facility] Comment on above: Performed By: #### H EMOG, CMP3M, CRP2, LDH3, FIBGN, DDI2, APTT, FERR3 #### [facility] [address] [place] [address] MCHC (RBC) [Mass/Vol] 33.9 % Normal 32.0-36.0 [facility] Comment on above: Performed By: #### H EMOG, CMP3M, CRP2, LDH3, FIBGN, DDI2, APTT, FERR3 #### [facility] [address] [place] [address] MCV (RBC) [Entitic vol] 86.2 fL Normal 80.0-98.0 [facility] Comment on above: Performed By: #### H EMOG, CMP3M, CRP2, LDH3, FIBGN, DDI2, APTT, FERR3 #### [facility] [address] [place] [address] Monocytes (Bld) [#/Vol] 0.8 10*3/uL Normal 0.0-0.8 [facility] Comment on above: Performed By: #### H EMOG, CMP3M, CRP2, LDH3, FIBGN, DDI2, APTT, FERR3 #### [facility] [address] [place] [address] Monocytes/100 WBC (Bld) 17.8 % High 2.0-10.0 [facility] Comment on above: Performed By: #### H EMOG, CMP3M, CRP2, LDH3, FIBGN, DDI2, APTT, FERR3 #### [facility] [address] [place] [address] Platelet mean volume (Bld) [Entitic vol] 7.4 fL Normal 7.4-10.4 [facility] Comment on above: Performed By: #### H EMOG, CMP3M, CRP2, LDH3, FIBGN, DDI2, APTT, FERR3 #### [facility] [address] [place] [address] Platelets (Bld) [#/Vol] 223 10*3/uL Normal 140-440 [facility] Comment on above: Performed By: #### H EMOG, CMP3M, CRP2, LDH3, FIBGN, DDI2, APTT, FERR3 #### [facility] [address] [place] [address] RBC (Bld) [#/Vol] 4.42 10*6/uL Normal 4.40-5.90 [facility] Comment on above: Performed By: #### H EMOG, CMP3M, CRP2, LDH3, FIBGN, DDI2, APTT, FERR3 #### [facility] [address] [place] [address] WBC (Bld) [#/Vol] 4.6 10*3/uL Normal 3.6-10.7 [facility] Comment on above: Performed By: #### H EMOG, CMP3M, CRP2, LDH3, FIBGN, DDI2, APTT, FERR3 #### [facility] [address] [place] [address] Lactic Acidon 10-28-2020 Lactate [Moles/Vol] 1.6 mmol/L Normal 0.7-2.0 [facility] Comment on above: Performed By: #### H EMOG, CMP3M, CRP2, LDH3, FIBGN, DDI2, APTT, FERR3 #### [facility] [address] [place] [address] Lactic Acid, Plasmaon 2019 Lactate [Moles/Vol] 1.6 mmol/L 0.7 - 2 mmol/L [facility], [place] NT pro BNPon 10-28-2020 Natriuretic peptide B (Bld) [Mass/Vol] 47 pg/mL Normal 0-125 [facility] Comment on above: Performed By: #### H EMOG, CMP3M, CRP2, LDH3, FIBGN, DDI2, APTT, FERR3 #### [facility] [address] [place] [address] Otheron 10-28-2020 Test Performed by [facility], [address], [place], [place] [address] [facility], [place] Test Performed by [facility], [address] [place], [place] [address] [facility], [place] POCT Arterialon 10-28-2020 Base Excess, Arterial -5.8 mmol/L Low -3 - 3 mmol/L [place] HCO3, Arterial 18.3 mmol/L Low 21 - 25 mmol/L [place] Interpretation and review of laboratory results Abnormal [place] Oxygen saturation in Blood 93.6 % Low 95 - 100 % [place] pCO2, Arterial 31.2 mm[Hg] Low 35 - 45 mm[Hg] [place] pH, Arterial 7.376 [place] pO2, Arterial 69.8 mm[Hg] Low 80 - 100 mm[Hg] [place] Sodium [Moles/Vol] 21 mmol/L [place] Comment on above: Performed by CLIA ID : [id number] [place], [place] TCO2, Arterial 19.3 mmol/L Low 23 - 27 mmol/L [place] Test Performed by [facility], [address], [place], [place] [id number] [place] [address] Procalcitoninon 10-28-2020 Interpretation See Below Normal [facility] Comment on above: Result Comment: PCT <0.50 = Low risk of severe sepsis and/or septic shock. PCT >2.00 = High risk of severe sepsis and/or septic shock. Performed By: #### H EMOG, CMP3M, CRP2, LDH3, FIBGN, DDI2, APTT, FERR3 #### [facility] [address] [place] [address] Respiratory Panel, Molecular , with COVID-19 (Restricted: [...] management decisions. This assay was developed by [employer] and distributed under an Emergency Use Authorization (EUA) granted by the FDA for the qualitative detection of SARS-CoV-2 nucleic acid. Provider and patient fact sheets can be found at https://www.fda.gov/media/ 248740/download and https://www.fda.gov/media/ 692200/download. [place] Test Performed by [facility], [address] [place] [address] [place] Troponin Ion 10-28-2020 Troponin I.cardiac [Mass/Vol] ng/mL Normal 0.000-0.03 4 [facility] Comment on above: Result Comment: . Performed By: #### H EMOG, CMP3M, CRP2, LDH3, FIBGN, DDI2, APTT, FERR3 #### [facility] [address] [place] [address] Troponin x1on 10-28-2020 Troponin I.cardiac [Mass/Vol] ng/mL 0 - 0.034 ng/mL [place] Comment on above: . Urinalysison 10-28-2020 AMORPHOUS CRYSTAL Few Abnormal Negative /[HPF] [place] Comment on above: . Appearance (U) Clear Clear NA [place] Comment on above: . Bacteria, UA Few Abnormal Negative /[HPF] [place] Comment on above: . Bilirubin Urine Negative Negative mg/dL [place] Comment on above: . Color (U) Yellow Lt. Yellow NA [place] Comment on above: . Glucose, Ur Normal Normal (<70) mg/dL [place] Comment on above: . Granular Casts, UA 0-2 Abnormal Negative /[LPF] [place] Comment on above: . Hyaline Casts, UA 3-5 Abnormal Negative /[LPF] [place] Comment on above: . Interpretation and review of laboratory results Abnormal [place] Ketones Ql (U) Negative Negative mg/dL [place] Comment on above: . LEUKOCYTES, UA Negative Negative Mary/uL [place] Comment on above: . Mucous Threads Few Negative /[LPF] [place] Comment on above: . Nitrite, Urine Negative Negative NA [place] Comment on above: . Non-Squamous Epithelial <1 Abnormal Nega tive /[HPF] [place] Comment on above: . Occult Blood,Urine Negative Negative mg/dL [place] Comment on above: . pH (U) 5.5 [pH] [place] Comment on above: . Protein (U) [Mass/Vol] 20 mg/dL Abnormal Negative Me [place] Comment on above: . RBC (U) [#/Vol] 0-2 0 - 2 /[HPF] [place] Comment on above: . Specific [place], Urine 1.015 [place] Comment on above: . Squam Epithel, UA 0-2 3 - 5 /[HPF] [place] Comment on above: . Urobilinogen, Urine Normal Normal (0-1) mg/dL [place] Comment on above: . WBC, UA 0-2 0 - 5 /[HPF] [place] Comment on above: . Test Performed by [facility], [address], [place], [place] [address] [place] XR CHEST PORTABLEon 10-28-20 [facility], [facility] Incoming Radiology [facility] - 10/28/2020 3:21 PM EST Patient Name: REGGIE LEÓN Diagnostic Radiology ACCESSION EXAM DATE/TIME PROCEDURE ORDERING PROVIDER [id number] 10/28/2020 15:05 EST CR Chest Portable BALAJI SILVER ANDREW [facility] CPT code 42877 Reason For Exam (CR Chest Portable) dyspnea [...] JOHN Transcribed Date and Time: 10/28/2020 3:21 [place] Patient Name: REGGIE WILSON Diagnostic Radiology ACCESSION EXAM DATE/TIME PROCEDURE ORDERING PROVIDER [id number] 10/28/2020 15:05 EST CR Chest Portable BALAJI SILVER DANIEL M CPT code 42812 Reason For Exam (CR Chest Portable) dyspnea [...] JOHN Transcribed Date and Time: 10/28/2020 3:21 [facility], [place] [facility] with eGFRon 05-05-2020 Age - Reported 54 years Normal [facility] Comment on above: Performed By: #### 2 [id number] #### [facility],[address] [place] [address] Anion gap [Moles/Vol] 11 mmol/L Normal 10 - 20 [facility] Comment on above: Performed By: #### 2 [id number] #### [facility],[address] [place] [address] Calcium [Mass/Vol] 9.5 mg/dL Normal 8.6 - 10.2 [facility] Comment on above: Performed By: #### 2 [id number] #### [facility],[address] [place] [address] CO2 [Moles/Vol] 24.7 mmol/L Normal 21.0 - 31.0 [facility] Comment on above: Performed By: #### 2 [id number] #### [facility],[address] [place] [address] GFR/1.73 sq M predicted among non-blacks MDRD (S/P/Bld) [Vol rate/Area] 27 ML/MINUTE Low 60 - 999 [facility] Comment on above: Performed By: #### 2 [id number] #### [facility],[address] [place] [address] GFR/1.73 sq M predicted among non-blacks MDRD (S/P/Bld) [Vol rate/Area] 33 ML/MINUTE Low 60 - 999 [facility] Comment on above: Result Comment: ACCO RDING TO THE NATIONAL KIDNEY DISEASE EDUCATION PROGRAM(NKDE), A NORMAL eGFR IS A VALUE GREATER THAN OR EQUAL TO 60 ML/MIN/1.73 SQ METERS. CHRONIC KIDNEY DISEASE: <60mL/MIN/1.73 SQ METERS KIDNEY FAILURE: <15mL/MIN/1.73 SQ METERS THIS TEST SHOULD ONLY BE USED FOR PATIENTS 18 YEARS OF AGE AND OLDER. Performed By: #### 2 90647 #### [address] [address] GFR/1.73 sq M predicted among non-blacks MDRD (S/P/Bld) [Vol rate/Area] Normal [facility] Comment on above: Result Comment: BASI C METABOLIC PANEL Performed By: #### 2 35215 #### [address] [address] Glucose [Mass/Vol] 113 mg/dL High 74 - 106 [facility] Comment on above: Performed By: #### 2 42071 #### [address] [address] Potassium [Moles/Vol] 4.1 mmol/L Normal 3.5 - 5.1 [facility] Comment on above: Performed By: #### 2 26332 #### [address] [address] Urea nitrogen [Mass/Vol] 24 mg/dL High 6 - 20 [facility] Comment on above: Performed By: #### 2 30382 #### [address] [address] CBC + DIFFon 05-05-2020 Basophils (Bld) [#/Vol] 0.10 x10EE3/UL Normal 0. 00 - 0.10 [facility] Comment on above: Performed By: #### 2 96093 #### [address] [address] Basophils/100 WBC (Bld) 0.9 % Normal 0.0 - 2.0 [facility] Comment on above: Performed By: #### 2 16082 #### [facility],[address] [place] [address] CBC + DIFF Normal [facility] Comment on above: Result Comment: CBC- COMPLETE BLOOD COUNT Performed By: #### 2 83519 #### [facility],[address] [place] [address] Eosinophils (Bld) [#/Vol] 0.40 x10EE3/UL Normal 0.00 - 0.50 [facility] Comment on above: Performed By: #### 2 84791 #### [place] [address] Eosinophils/100 WBC (Bld) 5.4 % Normal 0.0 - 7.0 [facility] Comment on above: Performed By: #### 2 30686 #### [place] [address] Erythrocyte distribution width (RBC) [Ratio] 12.7 % Normal 12.0 - 15.6 [facility] Comment on above: Performed By: #### 2 97828 #### [place] [address] Hematocrit (Bld) [Volume fraction] 37.0 % Low 40.0 - 52.0 [facility] Comment on above: Performed By: #### 2 82110 #### [facility],[address] [place], [place] [id number] Hemoglobin (Bld) [Mass/Vol] 13.0 g/dL Normal 13.0 - 17.5 [facility] Comment on above: Performed By: #### 2 71350 #### [place] [id number] Lymphocytes (Bld) [#/Vol] 1.50 x10EE3/UL Normal 0.80 - 2.80 [facility] Comment on above: Performed By: #### 2 11156 #### [facility] [place] [address] Lymphocytes/100 WBC (Bld) 18.7 % Low 20.0 - 45.0 [facility] Comment on above: Performed By: #### 2 52426 #### [facility],[address] [place] [address] 14943 MANUAL DIFF N/A Normal [facility] Comment on above: Performed By: #### 2 62139 #### [facility],[address] [place] [address] 40844 MCH (RBC) [Entitic mass] 31 pg Normal 27 - 33 [facility] Comment on above: Performed By: #### 2 23192 #### [facility],[address] [place] [address] 04452 MCHC (RBC) [Mass/Vol] 35 X10 3 Normal 32 - 36 [facility] Comment on above: Performed By: #### 2 79263 #### [facility],[address] [place] [address] 91998 MCV (RBC) [Entitic vol] 87 fL Normal 81 - 98 [facility] Comment on above: Performed By: #### 2 70986 #### [facility],[address] [place] [address]275 Monocytes (Bld) [#/Vol] 1.20 x10EE3/UL High 0. 20 - 1.00 [facility] Comment on above: Performed By: #### 2 37507 #### [facility],[address] [place] [address] 58648 MONOS % 14.8 % High 0.0 - 10.0 [facility] Comment on above: Performed By: #### 2 39070 #### [facility],[address] [place] [address] 69265 Morphology [place] (Bld) [Interp] N/A Normal [facility] Comment on above: Performed By: #### 2 26088 #### [facility],[address] [place] [address]126 Neutrophils (Bld) [#/Vol] 4.80 x10EE3/UL Normal 1.50 - 7.10 [facility] Comment on above: Performed By: #### 2 90024 #### [facility],[address] [place] [address]75 Neutrophils/100 WBC (Bld) 60.2 % Normal 46.0 - 76.0 [facility] Comment on above: Performed By: #### 2 22875 #### [facility],[address] [place] [address] 89327 Platelet mean volume (Bld) [Entitic vol] 7.2 fL Normal 6.4 - 10.5 [facility] Comment on above: Result Comment: AUTO MATED DIFFERENTIAL Performed By: #### 2 83123 #### [address] [address] Platelets (Bld) [#/Vol] 286 x10EE3/UL Normal 150 - 450 [facility] Comment on above: Performed By: #### 2 03796 #### [facility],[address] [place] [address] RBC (Bld) [#/Vol] 4.24 x 10EE6/UL Low 4.50 - 6.00 [facility] Comment on above: Performed By: #### 2 50940 #### [facility],[address] [place] [address]367 WBC (Bld) [#/Vol] 8.0 x 10EE3/UL Normal 4.5 - 10.8 [facility] Comment on above: Performed By: #### 2 85604 #### [address] [address] CULTURE URINEon 05-05-2020 CULTURE URINE CULTURE URINE _URINE CULTURE_ M I C R O B I O L O G Y R E P O R T FINAL ------- Antimicrobial Susceptibility and Organism Identification Report -------- Specimen Number : [id number] Requested : 05/05/20 Specimen Source : URINE Collected : 05/05/20 03:00 [place] of [place] : MEME HUANG Received : 05/05/20 03:00 Requesting Physician : FLORECITA -- Patient/Specimen Tests and Comments Specimen Comments -------- -------- FINAL REPORT: NO GROWTH AT 48 HOURS -- Tech : Source : URINE ID # : [id number] FINAL Report Date : / / : Collected : 05/05/20 03:00 05/07/20.1244.KLS. 05/06/20.0705.JLN. 05/07/20.1245.KLS.COMPLETE Normal [facility] Comment on above: Performed By: #### 2 82312 #### [facility],[address] [place] [address] LITHIUMon 05-05-2020 [place] [Moles/Vol] 0.9 mmol/L Normal 0.6 - 1.2 [facility] Comment on above: Performed By: #### 2 27182 #### [facility],[address] [place] [address] RENAL FUNCTION PANELon 05-05 Albumin [Mass/Vol] 3.3 g/dL Low 3.4 - 4.8 [facility] Comment on above: Performed By: #### 2 27554 #### [facility],[address] [place] [address] B/C RATIO 10 ratio Normal 0 - 30 [facility] Comment on above: Performed By: #### 2 68423 #### [facility],[address] [place] [address] Chloride [Moles/Vol] 107 mmol/L Normal 98 - 107 [facility] Comment on above: Performed By: #### 2 24260 #### [facility],[address] [place] [address]87 Creatinine [Mass/Vol] 2.5 mg/dL High 0.7 - 1.3 [facility] Comment on above: Performed By: #### 2 39743 #### [facility],[address] [place] [address]137 Phosphate [Mass/Vol] 4.9 mg/dL Normal 2.7 - 4.9 [facility] Comment on above: Performed By: #### 2 36984 #### [facility],[address] [place] [address]32 RENAL FUNCTION PANEL Normal [facility] Comment on above: Result Comment: JESSICA L FUNCTION PANEL Performed By: #### 2 22098 #### [facility],[address] [place] [address] Sodium [Moles/Vol] 139 mmol/L Normal 136 - 145 [facility] Comment on above: Performed By: #### 2 70904 #### [facility],[address] [place] [address]334 URINALYSISon 05-05-2020 Bilirubin [Mass/Vol] Negative Normal NORMAL: NEGATIVE [facility] Comment on above: Performed By: #### 2 05699 #### [facility],[address] [place] [address]385 Blood Negative Normal NORMAL: NEGATIVE [facility] Comment on above: Performed By: #### 2 27856 #### [facility],[address] [place] [address] Clarity (U) clear Normal NORMAL: CLEAR [facility] Comment on above: Performed By: #### 2 25064 #### [facility],[address] [place] [address] Color (U) yellow Normal NORMAL: YELLOW [facility] Comment on above: Performed By: #### 2 73020 #### [facility],[address] [place] [address]69 Glucose [Mass/Vol] NORM Normal NORMAL: NORMAL [facility] Comment on above: Performed By: #### 2 92324 #### [facility],[address] [place] [address] 00239 Ketone Negative Normal NORMAL: NEGATIVE [facility] Comment on above: Performed By: #### 2 19637 #### [facility],[address] [place] [address]23 Microscopic NOT INDICATED Normal [facility] Comment on above: Performed By: #### 2 92240 #### [facility],[address] [place] [address] Nitrite Ql (U) Negative Normal NORMAL: NEGATIVE [facility] Comment on above: Performed By: #### 2 82109 #### [facility],[address] [place], [place] [address] pH (Bld) 6 Normal NORMAL: 5.0-8.0 [facility] Comment on above: Performed By: #### 2 15860 #### [facility],[address] [place] [address] Protein (U) [Mass/Vol] Negative Normal JENN L: NEGATIVE [facility] Comment on above: Performed By: #### 2 18221 #### [facility],[address] [place] [address] Sp [place] 1.020 Normal NORMAL: 1.010-1.03 0 [facility] Comment on above: Performed By: #### 2 97940 #### [facility],[address] [place] [address] Specimen type Nom (Spec) UNSPECIFIED Normal [facility] Comment on above: Performed By: #### 2 49623 #### [facility],[address] [place] [address] Urobilinog NORM Normal NORMAL: NORMAL [facility] Comment on above: Performed By: #### 2 21848 #### [facility],[address] [place] [address] WBC (Bld) [#/Vol] Negative Normal NORMAL: NEGATIVE [facility] Comment on above: Performed By: #### 2 58525 #### [facility],[address] [place], [place] [address] CBC + DIFFon 04-08-2020 Basophils (Bld) [#/Vol] 0.10 x10EE3/UL Normal 0. 00 - 0.10 [facility] Comment on above: Performed By: #### 2 64292 ####[facility],[address] [place], [place] [address] Basophils/100 WBC (Bld) 1.2 % Normal 0.0 - 2.0 [facility] Comment on above: Performed By: #### 2 97251 ####[facility],[address] [place] [address] CBC + DIFF Normal [facility] Comment on above: Result Comment: CBC- COMPLETE BLOOD COUNT Performed By: #### 2 45824 ####[place] [address] Eosinophils (Bld) [#/Vol] 0.40 x10EE3/UL Normal 0.00 - 0.50 [facility] Comment on above: Performed By: #### 2 43188 ####[facility],[address] [place] [address] Eosinophils/100 WBC (Bld) 4.3 % Normal 0.0 - 7.0 [facility] Comment on above: Performed By: #### 2 82794 ####[place] [address] Erythrocyte distribution width (RBC) [Ratio] 12.9 % Normal 12.0 - 15.6 [facility] Comment on above: Performed By: #### 2 85613 ####[facility],[address] [place] [address] Hematocrit (Bld) [Volume fraction] 38.7 % Low 40.0 - 52.0 [facility] Comment on above: Performed By: #### 2 59330 ####[place] [address] Hemoglobin (Bld) [Mass/Vol] 13.4 g/dL Normal 13.0 - 17.5 [facility] Comment on above: Performed By: #### 2 45973 ####[facility],[address] [place] [address] Lymphocytes (Bld) [#/Vol] 1.80 x10EE3/UL Normal 0.80 - 2.80 [facility] Comment on above: Performed By: #### 2 13537 ####[facility],[address] [place] [address] 18555 Lymphocytes/100 WBC (Bld) 21.9 % Normal 20.0 - 45.0 [facility] Comment on above: Performed By: #### 2 34735 ####[facility],[address] [place] [address] 17415 MANUAL DIFF N/A Normal [facility] Comment on above: Performed By: #### 2 64800 ####[facility],[address] [place] [address] 74362 MCH (RBC) [Entitic mass] 31 pg Normal 27 - 33 [facility] Comment on above: Performed By: #### 2 98317 ####[facility],[address] [place] [address] 9[address]31 MCHC (RBC) [Mass/Vol] 35 X10 3 Normal 32 - 36 [facility] Comment on above: Performed By: #### 2 82873 ####[facility],[address] [place] [address] 37976 MCV (RBC) [Entitic vol] 88 fL Normal 81 - 98 [facility] Comment on above: Performed By: #### 2 60041 ####[facility],[address] [place] [address] 9[address]41 Monocytes (Bld) [#/Vol] 1.20 x10EE3/UL High 0. 20 - 1.00 [facility] Comment on above: Performed By: #### 2 21905 ####[facility],[address] [place] [address] 7[address]99 MONOS % 14.1 % High 0.0 - 10.0 [facility] Comment on above: Performed By: #### 2 28540 ####[facility],[address] [place] [address] 74242 Morphology [place] (Bld) [Interp] N/A Normal [facility] Comment on above: Performed By: #### 2 85537 ####[facility],[address] [place] [address]86 Neutrophils (Bld) [#/Vol] 4.90 x10EE3/UL Normal 1.50 - 7.10 [facility] Comment on above: Performed By: #### 2 99658 ####[facility],[address] [place] [address] 28821 Neutrophils/100 WBC (Bld) 58.5 % Normal 46.0 - 76.0 [facility] Comment on above: Performed By: #### 2 90294 ####[facility],[address] [place] [address] 65417 Platelet mean volume (Bld) [Entitic vol] 7.4 fL Normal 6.4 - 10.5 [facility] Comment on above: Result Comment: AUTO MATED DIFFERENTIAL Performed By: #### 2 87740 ####[address] [address] Platelets (Bld) [#/Vol] 268 x10EE3/UL Normal 150 - 450 [facility] Comment on above: Performed By: #### 2 67626 ####[facility],[address] [place] [address] 40995 RBC (Bld) [#/Vol] 4.41 x 10EE6/UL Low 4.50 - 6.00 [facility] Comment on above: Performed By: #### 2 14578 ####[facility],[address] [place] [address] 6[address]34 WBC (Bld) [#/Vol] 8.3 x 10EE3/UL Normal 4.5 - 10.8 [facility] Comment on above: Performed By: #### 2 42662 ####[address] [address] CULTURE URINEon 04-08-2020 CULTURE URINE CULTURE URINE _URINE CULTURE_ M I C R O B I O L O G Y R E P O R T FINAL ------- Antimicrobial Susceptibility and Organism Identification Report -------- Specimen Number : [id number] Requested : 04/08/20 Specimen Source : CLEAN CATCH URINE Collected : 04/08/20 06:28 [place] : MEME SAL Received : 04/08/20 06:28 Requesting Physician : FLORECITA -- Patient/Specimen Tests and Comments Specimen Comments -------- -------- FINAL REPORT: NO GROWTH AT 48 HOURS -- Tech : Source : CLEAN CATCH URINE ID # : [id number] FINAL Report Date : / / : Collected : 04/08/20 06:28 04/10/20.1059.BKO. 04/09/20.1214.KLS. 04/10/20.1059.BKO.COMPLETE Normal [facility] Comment on above: Performed By: #### 2 02615 #### [facility],[address] [place] [address]124 HEPATIC FUNCTION PANELon Albumin [Mass/Vol] 3.4 g/dL Normal 3.4 - 4.8 [facility] Comment on above: Performed By: #### 2 43935 ####[facility],[address] [place] [address] 47749 Performed By: #### 2 87958 ####[facility],[address] [place] [address] 59546 ALK PHOS 65 U/L Normal 38 - 126 [facility] Comment on above: Performed By: #### 2 43188 ####[facility],[address] [place] [address] 31360 ALT/SGPT 16 U/L Normal 10 - 40 [facility] Comment on above: Performed By: #### 2 17343 ####[facility],[address] [place] [address] 81313 AST/SGOT 10 U/L Low 13 - 39 [facility] Comment on above: Performed By: #### 2 45437 ####[facility],[address] [place] [address] 21261 Bilirubin [Mass/Vol] 0.4 mg/dL Normal 0.0 - 1.5 [facility] Comment on above: Performed By: #### 2 32893 ####[facility],[address] [place] [address] 18371 Bilirubin.direct [Mass/Vol] 0.1 mg/dL Normal 0.0 - 0.1 [facility] Comment on above: Performed By: #### 2 64193 ####[facility],[address] [place] [address] 33509 HEPATIC FUNCTION PANEL Normal [facility] Comment on above: Result Comment: HEPA TIC FUNCTION PROFILE Performed By: #### 2 16465 ####[facility],[address] [place] [address] 19000 Protein [Mass/Vol] 5.4 g/dL Low 6.4 - 8.3 [facility] Comment on above: Performed By: #### 2 62866 ####[facility],[address] [place] [address] 17977 LITHIUMon 04-08-2020 [place] [Moles/Vol] 0.7 mmol/L Normal 0.6 - 1.2 [facility] Comment on above: Performed By: #### 2 42047 ####[facility],[address] [place] [address] 68951 RENAL FUNCTION PANELon 04-08 B/C RATIO 11 ratio Normal 0 - 30 [facility] Comment on above: Performed By: #### 2 15414 ####[facility],[address] [place] [address] 46605 Calcium [Mass/Vol] 9.5 mg/dL Normal 8.6 - 10.2 [facility] Comment on above: Performed By: #### 2 05998 ####[facility],[address] [place] [address] 51753 Chloride [Moles/Vol] 105 mmol/L Normal 98 - 107 [facility] Comment on above: Performed By: #### 2 05818 ####[facility],[address] [place] [address] 95865 CO2 [Moles/Vol] 25.4 mmol/L Normal 21.0 - 31.0 [facility] Comment on above: Performed By: #### 2 97665 ####[facility],[address] [place] [address] 94629 Creatinine [Mass/Vol] 2.1 mg/dL High 0.7 - 1.3 [facility] Comment on above: Performed By: #### 2 56422 ####[facility],[address] [place] [address] 32216 Glucose [Mass/Vol] 105 mg/dL Normal 74 - 106 [facility] Comment on above: Performed By: #### 2 14239 ####[facility],[address] [place] [address] 67863 Phosphate [Mass/Vol] 5.2 mg/dL High 2.7 - 4.9 [facility] Comment on above: Performed By: #### 2 62919 ####[facility],[address] [place] [address] 18893 Potassium [Moles/Vol] 3.8 mmol/L Normal 3.5 - 5.1 [facility] Comment on above: Performed By: #### 2 92513 ####[facility],[address] [place] [address] 65390 RENAL FUNCTION PANEL Normal [facility] Comment on above: Result Comment: JESSICA L FUNCTION PANEL Performed By: #### 2 21959 ####[facility],[address] [place] [address] 24279 Sodium [Moles/Vol] 139 mmol/L Normal 136 - 145 [facility] Comment on above: Performed By: #### 2 90890 ####[facility],[address] [place] [address] 21146 Urea nitrogen [Mass/Vol] 23 mg/dL High 6 - 20 [facility] Comment on above: Performed By: #### 2 92977 ####[facility],[address] [place] [address] 70698 URINALYSISon 04-08-2020 Bilirubin [Mass/Vol] Negative Normal NORMAL: NEGATIVE [facility] Comment on above: Performed By: #### 2 11562 #### [facility],[address] [place] [address] 57297 Blood Negative Normal NORMAL: NEGATIVE [facility] Comment on above: Performed By: #### 2 64436 #### [facility],[address] [place] [address] 94588 Clarity (U) clear Normal NORMAL: CLEAR [facility] Comment on above: Performed By: #### 2 43014 #### [facility],[address] [place], [place] [address] Color (U) p.yel Normal NORMAL: YELLOW [facility] Comment on above: Performed By: #### 2 49490 #### [facility],[address] [place], [place] [address] Glucose [Mass/Vol] NORM Normal NORMAL: NORMAL [facility] Comment on above: Performed By: #### 2 40568 #### [facility],[address] [place] [address] 89475 Ketone Negative Normal NORMAL: NEGATIVE [facility] Comment on above: Performed By: #### 2 46002 #### [facility] [facility],[address] [place] [address] 40215 Microscopic NOT INDICATED Normal [facility] Comment on above: Performed By: #### 2 74346 #### [facility],[address] [place] [address] 32825 Nitrite Ql (U) Negative Normal NORMAL: NEGATIVE [facility] Comment on above: Performed By: #### 2 21323 #### [facility],[address] [place] [address] 74091 pH (Bld) 6 Normal NORMAL: 5.0-8.0 [facility] Comment on above: Performed By: #### 2 46707 #### [facility],[address] [place] [address] 89044 Protein (U) [Mass/Vol] Negative Normal JENN L: NEGATIVE [facility] Comment on above: Performed By: #### 2 50369 #### [facility],[address] [place] [address] 52120 Sp [place] 1.020 Normal NORMAL: 1.010-1.03 0 [facility] Comment on above: Performed By: #### 2 35114 #### [facility],[address] [place] [address] Specimen type Nom (Spec) Clean catch Normal [facility] Comment on above: Performed By: #### 2 68223 #### [facility],[address] [place] [address] Urobilinog NORM Normal NORMAL: NORMAL [facility] Comment on above: Performed By: #### 2 03179 #### [facility],[address] [place], [place] [id number] WBC (Bld) [#/Vol] Negative Normal NORMAL: NEGATIVE [facility] Comment on above: Performed By: #### 2 30385 #### [facility],[address] [place], [place] [id number] URINE CREATININE AND PROTEIN RATIOon 04-08-2020 CREATININE UR 146.3 mg/dl Normal [facility] Comment on above: Performed By: #### 2 03692 ####[facility],[address] [place] [address] 00891 PC RATIO 0.06 mg/dL Normal 0.00 - 10.00 [facility] Comment on above: Performed By: #### 2 89100 ####[facility],[address] [place] [address] 50720 Protein (U) [Mass/Vol] 9.00 mg/dL Normal 0.00 - 10.00 [facility] Comment on above: Performed By: #### 2 92804 ####[facility],[address] [place], [place] [address] HGB A1C [CCL]on 03-18-2020 HbA1c (Bld) [Mass fraction] 117 mg/dL Normal [facility] Comment on above: Result Comment: eAG: (Estimated average glucose) is a calculated value from HgbA1c and is patient account representative of the average blood glucose level in the last 2-3 month period. [facility] [address] [place] [address] Dre Gilliland III, M.D. [id number] Performed By: #### 2 35122 ####[place] [address] HbA1c (Bld) [Mass fraction] 5.7 % High 4.3-5.6 [facility] Comment on above: Result Comment: [place] Diabetes Association guidelines indicate that patients with HgbA1c in the range 5.7-6.4% are at increased risk for development of diabetes, and intervention by lifestyle modification may be beneficial. HgbA1c greater or equal to 6.5% is considered diagnostic of diabetes. Performed By: #### 2 67155 ####[place] [id number] Hemoglobin A1con 03-18-2020 HbA1c (Bld) [Mass fraction] 5.7 % High 4.3-5.6 [facility] Comment on above: Performed By: #### H BA1C #### [facility] [address] [address] HbA1c (Bld) [Mass fraction] 117 mg/dL Normal [facility] Comment on above: Performed By: #### H BA1C #### [facility] [address] [place] [address] LIPID PROFILEon 03-17-2020 Cholesterol [Mass/Vol] 133 mg/dL Normal 0 - 200 [facility] Comment on above: Performed By: #### 2 61207 ####[address] [address] Cholesterol in HDL [Mass/Vol] 29 mg/dL Low 40 - 60 [facility] Comment on above: Performed By: #### 2 05289 ####[facility],[address] [place] [address] 29838 Cholesterol in LDL [Mass/Vol] 59 mg/dL Normal 0 - 129 [facility] Comment on above: Performed By: #### 2 76968 ####[facility],[address] [place] [address] 57434 Cholesterol.total/Choles terol in HDL [Mass ratio] 4.6 {ratio} Normal 0.0 - 5.0 [facility] Comment on above: Performed By: #### 2 89531 ####[facility],[address] [place] [address] 92258 Lipid 1996 panel Normal [facility] Comment on above: Result Comment: LIPI D PROFILE Performed By: #### 2 08461 ####[facility],[address] [place] [address] 03388 Triglyceride [Mass/Vol] 224 mg/dL High 0 - 150 [facility] Comment on above: Performed By: #### 2 29958 ####[facility],[address] [place] [address] 25500 TSHon 03-17-2020 TSH Qn 0.99 uIU/ml Normal 0.34 - 5.60 [facility] Comment on above: Performed By: #### 2 92046 ####[facility],[address] [place] [address] 56383 URINE CREATININE AND PROTEIN RATIOon 03-11-2020 CREATININE UR 65.8 mg/dl Normal [facility] Comment on above: Performed By: #### 2 17556 ####[facility],[address] [place] [address] 45033 PC RATIO 0.06 mg/dL Normal 0.00 - 10.00 [facility] Comment on above: Performed By: #### 2 92994 ####[facility],[address] [place] [address] 17087 Protein (U) [Mass/Vol] mg/dL Normal 0.00 - 10.00 [facility] Comment on above: Performed By: #### 2 01282 ####[facility],[address] [place] [address] CBC + DIFFon 03-10-2020 Basophils (Bld) [#/Vol] 0.10 x10EE3/UL Normal 0. 00 - 0.10 [facility] Comment on above: Performed By: #### 2 96667 #### [facility],[address] [place] [address] 80405 Basophils/100 WBC (Bld) 1.3 % Normal 0.0 - 2.0 [facility] Comment on above: Performed By: #### 2 90974 #### [place] [address] CBC + DIFF Normal [facility] Comment on above: Result Comment: CBC- COMPLETE BLOOD COUNT Performed By: #### 2 52239 #### [place] [id number] Eosinophils (Bld) [#/Vol] 0.40 x10EE3/UL Normal 0.00 - 0.50 [facility] Comment on above: Performed By: #### 2 28125 #### [facility],[address] [place] [address] 47732 Eosinophils/100 WBC (Bld) 5.7 % Normal 0.0 - 7.0 [facility] Comment on above: Performed By: #### 2 05780 #### [place] [address] Erythrocyte distribution width (RBC) [Ratio] 13.3 % Normal 12.0 - 15.6 [facility] Comment on above: Performed By: #### 2 38716 #### [facility],[address] [place], [place] [address] Hematocrit (Bld) [Volume fraction] 40.4 % Normal 40.0 - 52.0 [facility] Comment on above: Performed By: #### 2 70913 #### [facility],[address] [place] [address] 37254 Hemoglobin (Bld) [Mass/Vol] 13.8 g/dL Normal 13.0 - 17.5 [facility] Comment on above: Performed By: #### 2 00983 #### [facility],[address] [place], [place] [address] Lymphocytes (Bld) [#/Vol] 1.30 x10EE3/UL Normal 0.80 - 2.80 [facility] Comment on above: Performed By: #### 2 59682 #### [facility],[address] [place] [address] 15976 Lymphocytes/100 WBC (Bld) 20.1 % Normal 20.0 - 45.0 [facility] Comment on above: Performed By: #### 2 65561 #### [facility],[address] [place] [address] 07786 MANUAL DIFF N/A Normal [facility] Comment on above: Performed By: #### 2 03937 #### [facility],[address] [place] [address] 45460 MCH (RBC) [Entitic mass] 30 pg Normal 27 - 33 [facility] Comment on above: Performed By: #### 2 70059 #### [facility],[address] [place] [address] 89425 MCHC (RBC) [Mass/Vol] 34 X10 3 Normal 32 - 36 [facility] Comment on above: Performed By: #### 2 88873 #### [facility],[address] [place] [address] 64680 MCV (RBC) [Entitic vol] 88 fL Normal 81 - 98 [facility] Comment on above: Performed By: #### 2 07565 #### [facility],[address] [place] [address] 63848 Monocytes (Bld) [#/Vol] 0.90 x10EE3/UL Normal 0. 20 - 1.00 [facility] Comment on above: Performed By: #### 2 09722 #### [facility],[address] [place] [address] 10411 MONOS % 13.7 % High 0.0 - 10.0 [facility] Comment on above: Performed By: #### 2 90649 #### [facility],[address] [place] [address] 20141 Morphology [place] (Bld) [Interp] N/A Normal [facility] Comment on above: Performed By: #### 2 75763 #### [address] [address] Neutrophils (Bld) [#/Vol] 3.80 x10EE3/UL Normal 1.50 - 7.10 [facility] Comment on above: Performed By: #### 2 35344 #### [address] [address] Neutrophils/100 WBC (Bld) 59.2 % Normal 46.0 - 76.0 [facility] Comment on above: Performed By: #### 2 77090 #### [facility],[address] [place] [address] 37458 Platelet mean volume (Bld) [Entitic vol] 7.8 fL Normal 6.4 - 10.5 [facility] Comment on above: Result Comment: AUTO MATED DIFFERENTIAL Performed By: #### 2 61522 #### [address] [address] Platelets (Bld) [#/Vol] 291 x10EE3/UL Normal 150 - 450 [facility] Comment on above: Performed By: #### 2 85831 #### [facility],[address] [place] [address] 05115 RBC (Bld) [#/Vol] 4.57 x 10EE6/UL Normal 4.50 - 6.00 [facility] Comment on above: Performed By: #### 2 75744 #### [facility],[address] [place] [address] 57724 WBC (Bld) [#/Vol] 6.4 x 10EE3/UL Normal 4.5 - 10.8 [facility] Comment on above: Performed By: #### 2 64618 #### [facility],[address] [place] [address] 78634 LITHIUMon 03-10-2020 [place] [Moles/Vol] 0.8 mmol/L Normal 0.6 - 1.2 [facility] Comment on above: Performed By: #### 2 53541 #### [facility],[address] [place] [address] 82027 RENAL FUNCTION PANEL WITH eG FRon 03-10-2020 Age - Reported 54 years Normal [facility] Comment on above: Performed By: #### 2 25076 ####[facility],[address] [place] [address] 34587 Albumin [Mass/Vol] 3.5 g/dL Normal 3.4 - 4.8 [facility] Comment on above: Performed By: #### 2 43168 ####[facility],[address] [place] [address] 77490 B/C RATIO 8 ratio Normal 0 - 30 [facility] Comment on above: Performed By: #### 2 58041 ####[facility],[address] [place] [address] 30514 Calcium [Mass/Vol] 9.4 mg/dL Normal 8.6 - 10.2 [facility] Comment on above: Performed By: #### 2 55366 ####[facility],[address] [place] [address] 26399 Chloride [Moles/Vol] 106 mmol/L Normal 98 - 107 [facility] Comment on above: Performed By: #### 2 92582 ####[facility],[address] [place] [address] 58117 CO2 [Moles/Vol] 26.1 mmol/L Normal 21.0 - 31.0 [facility] Comment on above: Performed By: #### 2 90244 ####[facility],[address] [place] [address] 26601 Creatinine [Mass/Vol] 2.5 mg/dL High 0.7 - 1.3 [facility] Comment on above: Performed By: #### 2 96964 ####[facility],[address] [place] [address] 61087 GFR/1.73 sq M predicted among non-blacks MDRD (S/P/Bld) [Vol rate/Area] 33 ML/MINUTE Low 60 - 999 [facility] Comment on above: Result Comment: ACCO RDING TO THE NATIONAL KIDNEY DISEASE EDUCATION PROGRAM(NKDE), A NORMAL eGFR IS A VALUE GREATER THAN OR EQUAL TO 60 ML/MIN/1.73 SQ METERS. CHRONIC KIDNEY DISEASE: <60mL/MIN/1.73 SQ METERS KIDNEY FAILURE: <15mL/MIN/1.73 SQ METERS THIS TEST SHOULD ONLY BE USED FOR PATIENTS 18 YEARS OF AGE AND OLDER. Performed By: #### 2 19582 ####[facility],[address] [place] [address] 12031 GFR/1.73 sq M predicted among non-blacks MDRD (S/P/Bld) [Vol rate/Area] 27 ML/MINUTE Low 60 - 999 [facility] Comment on above: Performed By: #### 2 14709 ####[facility],[address] [place] [address] 85310 Glucose [Mass/Vol] 114 mg/dL High 74 - 106 [facility] Comment on above: Performed By: #### 2 28630 ####[facility],[address] [place] [address] 31634 Phosphate [Mass/Vol] 4.6 mg/dL Normal 2.7 - 4.9 [facility] Comment on above: Performed By: #### 2 44534 ####[facility],[address] [place] [address] 25043 Potassium [Moles/Vol] 3.9 mmol/L Normal 3.5 - 5.1 [facility] Comment on above: Performed By: #### 2 59807 ####[facility],[address] [place] [address] RENAL FUNCTION PANEL WITH eGFR Normal [facility] Comment on above: Result Comment: JESSICA L FUNCTION PANEL Performed By: #### 2 74149 ####[place] [address] Sodium [Moles/Vol] 139 mmol/L Normal 136 - 145 [facility] Comment on above: Performed By: #### 2 88216 ####[place] [address] Urea nitrogen [Mass/Vol] 21 mg/dL High 6 - 20 [facility] Comment on above: Performed By: #### 2 79742 ####[address] [address] CBC + DIFFon 02-04-2020 Basophils (Bld) [#/Vol] 0.10 x10EE3/UL Normal 0. 00 - 0.10 [facility] Comment on above: Performed By: #### 2 30529 #### [facility],[address] [place] [address] 32755 Basophils/100 WBC (Bld) 1.3 % Normal 0.0 - 2.0 [facility] Comment on above: Performed By: #### 2 72683 #### [facility],[address] [place] [address] CBC + DIFF Normal [facility] Comment on above: Result Comment: CBC- COMPLETE BLOOD COUNT Performed By: #### 2 67056 #### [address],[place] [address] Eosinophils (Bld) [#/Vol] 0.40 x10EE3/UL Normal 0.00 - 0.50 [facility] Comment on above: Performed By: #### 2 68129 #### [facility],[address] [place], [place] [address] Eosinophils/100 WBC (Bld) 5.6 % Normal 0.0 - 7.0 [facility] Comment on above: Performed By: #### 2 35644 #### [facility],[address] [place] [address] Erythrocyte distribution width (RBC) [Ratio] 13.2 % Normal 12.0 - 15.6 [facility] Comment on above: Performed By: #### 2 37282 #### [facility],[address] [place] [address] Hematocrit (Bld) [Volume fraction] 38.7 % Low 40.0 - 52.0 [facility] Comment on above: Performed By: #### 2 95971 #### [facility],[address] [place] [address] Hemoglobin (Bld) [Mass/Vol] 13.2 g/dL Normal 13.0 - 17.5 [facility] Comment on above: Performed By: #### 2 54428 #### [facility],[address] [place] [address] 29989 Lymphocytes (Bld) [#/Vol] 1.40 x10EE3/UL Normal 0.80 - 2.80 [facility] Comment on above: Performed By: #### 2 94118 #### [facility],[address] [place] [address] 98661 Lymphocytes/100 WBC (Bld) 18.1 % Low 20.0 - 45.0 [facility] Comment on above: Performed By: #### 2 63558 #### [place] [address] MANUAL DIFF N/A Normal [facility] Comment on above: Performed By: #### 2 07657 #### [facility],[address] [place], [place] [address] MCH (RBC) [Entitic mass] 30 pg Normal 27 - 33 [facility] Comment on above: Performed By: #### 2 17279 #### [facility],[address] [place], [place] [address] MCHC (RBC) [Mass/Vol] 34 X10 3 Normal 32 - 36 [facility] Comment on above: Performed By: #### 2 64358 #### [facility],[address] [place], [place] [address] MCV (RBC) [Entitic vol] 88 fL Normal 81 - 98 [facility] Comment on above: Performed By: #### 2 67520 #### [facility],[address] [place], [place] [address] Monocytes (Bld) [#/Vol] 1.10 x10EE3/UL High 0. 20 - 1.00 [facility] Comment on above: Performed By: #### 2 26661 #### [facility],[address] [place], [place] [address] MONOS % 13.6 % High 0.0 - 10.0 [facility] Comment on above: Performed By: #### 2 45689 #### [facility],[address] [place] [address] 13167 Morphology [place] (Bld) [Interp] N/A Normal [facility] Comment on above: Performed By: #### 2 22547 #### [facility],[address] [place] [address] 56127 Neutrophils (Bld) [#/Vol] 4.80 x10EE3/UL Normal 1.50 - 7.10 [facility] Comment on above: Performed By: #### 2 96566 #### [facility],[address],[place] [address] Neutrophils/100 WBC (Bld) 61.4 % Normal 46.0 - 76.0 [facility] Comment on above: Performed By: #### 2 86328 #### [place] [id number] Platelet mean volume (Bld) [Entitic vol] 7.7 fL Normal 6.4 - 10.5 [facility] Comment on above: Result Comment: AUTO MATED DIFFERENTIAL Performed By: #### 2 77504 #### [place] [id number] Platelets (Bld) [#/Vol] 298 x10EE3/UL Normal 150 - 450 [facility] Comment on above: Performed By: #### 2 37818 #### [address] [address] RBC (Bld) [#/Vol] 4.40 x 10EE6/UL Low 4.50 - 6.00 [facility] Comment on above: Performed By: #### 2 72570 #### [address] [address] WBC (Bld) [#/Vol] 7.8 x 10EE3/UL Normal 4.5 - 10.8 [facility] Comment on above: Performed By: #### 2 11832 #### [address] [address] CULTURE URINEon 02-04-2020 CULTURE URINE CULTURE URINE _URINE CULTURE_ M I C R O B I O L O G Y R E P O R T FINAL ------- Antimicrobial Susceptibility and Organism Identification Report -------- Specimen Number : [id number] Requested : 02/04/20 Specimen Source : URINE Collected : 02/04/20 02:50 [place] of [place]olation : MEME HUANG Received : 02/04/20 02:50 Requesting Physician : FLORECITA -- Patient/Specimen Tests and Comments Specimen Comments -------- -------- FINAL REPORT: NO GROWTH AT 48 HOURS -- Tech : Source : URINE ID # : [id number] FINAL Report Date : / / : Collected : 02/04/20 02:50 02/06/20.1208.KLS. 02/05/20.10.JLN. 02/06/20.KLS.COMPLETE Normal [facility] Comment on above: Performed By: #### 2 60837 #### [facility],[address] [place] [address] 56071 RENAL FUNCTION PANEL WITH eG FRon 02-04-2020 Age - Reported 54 years Normal [facility] Comment on above: Performed By: #### 2 45433 #### [facility],[address] [place] [address] 12626 Albumin [Mass/Vol] 3.5 g/dL Normal 3.4 - 4.8 [facility] Comment on above: Performed By: #### 2 73673 #### [facility],[address] [place] [address] 55286 B/C RATIO 9 ratio Normal 0 - 30 [facility] Comment on above: Performed By: #### 2 39927 #### [facility],[address] [place] [address] 25273 Calcium [Mass/Vol] 9.4 mg/dL Normal 8.6 - 10.2 [facility] Comment on above: Performed By: #### 2 90933 #### [facility],[address] [place] [address] 79426 Chloride [Moles/Vol] 107 mmol/L Normal 98 - 107 [facility] Comment on above: Performed By: #### 2 80948 #### [facility],[address] [place] [address] 78254 CO2 [Moles/Vol] 25.6 mmol/L Normal 21.0 - 31.0 [facility] Comment on above: Performed By: #### 2 24889 #### [facility],[address] [place] [address] 55961 Creatinine [Mass/Vol] 2.4 mg/dL High 0.7 - 1.3 [facility] Comment on above: Performed By: #### 2 48961 #### [facility],[address] [place] [address] 49987 GFR/1.73 sq M predicted among non-blacks MDRD (S/P/Bld) [Vol rate/Area] 28 ML/MINUTE Low 60 - 999 [facility] Comment on above: Performed By: #### 2 73534 #### [facility],[address] [place] [address] 03940 GFR/1.73 sq M predicted among non-blacks MDRD (S/P/Bld) [Vol rate/Area] 34 ML/MINUTE Low 60 - 999 [facility] Comment on above: Result Comment: ACCO RDING TO THE NATIONAL KIDNEY DISEASE EDUCATION PROGRAM(NKDE), A NORMAL eGFR IS A VALUE GREATER THAN OR EQUAL TO 60 ML/MIN/1.73 SQ METERS. CHRONIC KIDNEY DISEASE: <60mL/MIN/1.73 SQ METERS KIDNEY FAILURE: <15mL/MIN/1.73 SQ METERS THIS TEST SHOULD ONLY BE USED FOR PATIENTS 18 YEARS OF AGE AND OLDER. Performed By: #### 2 89788 #### [facility],[address] [place] [address] 34118 Glucose [Mass/Vol] 114 mg/dL High 74 - 106 [facility] Comment on above: Performed By: #### 2 91830 #### [facility],[address] [place] [address] 79805 Phosphate [Mass/Vol] 4.5 mg/dL Normal 2.7 - 4.9 [facility] Comment on above: Performed By: #### 2 66308 #### [facility],[address] [place], [place] [address] 27094 Potassium [Moles/Vol] 3.8 mmol/L Normal 3.5 - 5.1 [facility] Comment on above: Performed By: #### 2 96849 #### [facility],[address] [place] [address] 09342 RENAL FUNCTION PANEL WITH eGFR Normal [facility] Comment on above: Result Comment: JESSICA L FUNCTION PANEL Performed By: #### 2 01059 #### [facility],[address] [place] [address] 63546 Sodium [Moles/Vol] 139 mmol/L Normal 136 - 145 [facility] Comment on above: Performed By: #### 2 35197 #### [facility],[address] [place] [address] Urea nitrogen [Mass/Vol] 22 mg/dL High 6 - [facility] Comment on above: Performed By: #### 2 99523 #### [facility],[address] [place], [place] [id number] URINALYSISon 02-04-2020 Amorphous NONE Normal [facility] Comment on above: Performed By: #### 2 44170 #### [facility],[address] [place] [address] Bacteria LM.HPF (Urine sed) [#/Area] NONE Normal [facility] Comment on above: Performed By: #### 2 47207 #### [facility],[address] [place], [place] [id number] Bilirubin [Mass/Vol] Negative Normal NORMAL: NEGATIVE [facility] Comment on above: Performed By: #### 2 13412 #### [facility],[address] [place] [address] Blood Negative Normal NORMAL: NEGATIVE [facility] Comment on above: Performed By: #### 2 98138 #### [facility],[address] [place], [place] [id number] Casts LM.LPF (Urine sed) [#/Area] NONE Normal [facility] Comment on above: Performed By: #### 2 30756 #### [facility],[address] [place] [address] Clarity (U) clear Normal NORMAL: CLEAR [facility] Comment on above: Performed By: #### 2 33042 #### [facility],[address] [place], [place] [id number] Color (U) yellow Normal NORMAL: YELLOW [facility] Comment on above: Performed By: #### 2 25335 #### [facility],[address] [place], [place] [id number] Crystals LM Nom (Urine sed) NONE Normal [facility] Comment on above: Performed By: #### 2 45475 #### [facility],[address] [place] [address],[facility] [address] Epi Cells NONE Normal [facility] Comment on above: Performed By: #### 2 83958 #### [facility],[address] [place] [address],[facility] [address] Glucose [Mass/Vol] NORM Normal NORMAL: NORMAL [facility] Comment on above: Performed By: #### 2 00291 #### [facility],[address] [place] [address],[facility] [address] Ketone Negative Normal NORMAL: NEGATIVE [facility] Comment on above: Performed By: #### 2 73377 #### [facility],[address] [place] [address],[facility] [address] Microscopic SEE BELOW Normal [facility] Comment on above: Result Comment: MICR OSCOPIC Performed By: #### 2 30708 #### [facility],[address] [place] [address] 47421 Mucous NONE Normal [facility] Comment on above: Performed By: #### 2 78197 #### [facility],[address] [place] [address] 83958 Nitrite Ql (U) Negative Normal NORMAL: NEGATIVE [facility] Comment on above: Performed By: #### 2 47090 #### [facility],[address] [place] [address] 39335 pH (Bld) 6 Normal NORMAL: 5.0-8.0 [facility] Comment on above: Performed By: #### 2 88641 #### [facility],[address] [place] [address] 37449 Protein (U) [Mass/Vol] Negative Normal JENN L: NEGATIVE [facility] Comment on above: Performed By: #### 2 60193 #### [facility],[address] [place] [address] 09073 Rbc NONE Normal 0-3/hpf [facility] Comment on above: Performed By: #### 2 71521 #### [facility],[address] [place] [address] Sp [place] 1.015 Normal NORMAL: 1.010-1.03 0 [facility] Comment on above: Performed By: #### 2 65432 #### [facility],[address] [place] [address] Specimen type Nom (Spec) Clean catch Normal [facility] Comment on above: Performed By: #### 2 97956 #### [facility],[address] [place] [address] Urobilinog NORM Normal NORMAL: NORMAL [facility] Comment on above: Performed By: #### 2 68642 #### [facility],[address] [place] [address] Wbc 1-5 Normal 0-5/hpf [facility] Comment on above: Performed By: #### 2 94181 #### [facility],[address] [place] [address] WBC (Bld) [#/Vol] 25 Abnormal NORMAL: NEGATIVE [facility] Comment on above: Performed By: #### 2 27726 #### [facility],[address] [place] [address] Yeast LM Ql (Urine sed) NONE Normal [facility] Comment on above: Performed By: #### 2 80326 #### [facility],[address] [place] [address] URINE CREATININE AND PROTEIN RATIOon 02-04-2020 CREATININE UR 143.6 mg/dl Normal [facility] Comment on above: Performed By: #### 2 84414 #### [facility],[address] [place] [address] PC RATIO 0.05 mg/dL Normal 0.00 - 10.00 [facility] Comment on above: Performed By: #### 2 02144 #### [facility],[address] [place] [address] 86124 Protein (U) [Mass/Vol] 7.00 mg/dL Normal 0.00 - 10.00 [facility] Comment on above: Performed By: #### 2 20135 #### [facility],[address] [place] [address] 01021 ALBUMIN PLASMAon 01-07-2020 Albumin [Mass/Vol] 3.7 g/dL Normal 3.4 - 4.8 [facility] Comment on above: Performed By: #### 2 45587 #### [facility],[address] [place] [address] 67710 BMP with eGFRon 01-07-2020 Age - Reported 54 years Normal [facility] Comment on above: Performed By: #### 2 06431 #### [facility],[address] [place] [address] 86352 Anion gap [Moles/Vol] 13 mmol/L Normal 10 - 20 [facility] Comment on above: Performed By: #### 2 04431 #### [facility],[address] [place] [address] 08112 Calcium [Mass/Vol] 9.3 mg/dL Normal 8.6 - 10.2 [facility] Comment on above: Performed By: #### 2 73290 #### [facility],[address] [place] [address] 70864 Chloride [Moles/Vol] 108 mmol/L High 98 - 107 [facility] Comment on above: Performed By: #### 2 76255 #### [facility],[address] [place] [address] 54547 CO2 [Moles/Vol] 26.1 mmol/L Normal 21.0 - 31.0 [facility] Comment on above: Performed By: #### 2 80412 #### [facility],[address] [place] [address] 10498 Creatinine [Mass/Vol] 2.0 mg/dL High 0.7 - 1.3 [facility] Comment on above: Performed By: #### 2 95602 #### [facility],[address] [place] [address] 75658 GFR/1.73 sq M predicted among non-blacks MDRD (S/P/Bld) [Vol rate/Area] Normal [facility] Comment on above: Result Comment: BASI C METABOLIC PANEL Performed By: #### 2 87642 #### [facility],[address] [place] [address] 42892 GFR/1.73 sq M predicted among non-blacks MDRD (S/P/Bld) [Vol rate/Area] 42 ML/MINUTE Low 60 - 999 [facility] Comment on above: Result Comment: ACCO RDING TO THE NATIONAL KIDNEY DISEASE EDUCATION PROGRAM(NKDE), A NORMAL eGFR IS A VALUE GREATER THAN OR EQUAL TO 60 ML/MIN/1.73 SQ METERS. CHRONIC KIDNEY DISEASE: <60mL/MIN/1.73 SQ METERS KIDNEY FAILURE: <15mL/MIN/1.73 SQ METERS THIS TEST SHOULD ONLY BE USED FOR PATIENTS 18 YEARS OF AGE AND OLDER. Performed By: #### 2 55438 #### [address] [address] GFR/1.73 sq M predicted among non-blacks MDRD (S/P/Bld) [Vol rate/Area] 35 ML/MINUTE Low 60 - 999 [facility] Comment on above: Performed By: #### 2 08291 #### [facility],[address] [place] [address] 62138 Glucose [Mass/Vol] 99 mg/dL Normal 74 - 106 [facility] Comment on above: Performed By: #### 2 28996 #### [address] [address] Potassium [Moles/Vol] 3.8 mmol/L Normal 3.5 - 5.1 [facility] Comment on above: Performed By: #### 2 44675 #### [facility],[address] [place] [address] Sodium [Moles/Vol] 143 mmol/L Normal 136 - 145 [facility] Comment on above: Performed By: #### 2 21393 #### [facility],[address] [place] [address] Urea nitrogen [Mass/Vol] 22 mg/dL High 6 - 20 [facility] Comment on above: Performed By: #### 2 39455 #### [facility],[address] [place] [address] 15320 CBC + DIFFon 01-07-2020 Basophils (Bld) [#/Vol] 0.10 x10EE3/UL Normal 0. 00 - 0.10 [facility] Comment on above: Performed By: #### 2 10866 #### [facility],[address] [place] [address] 04824 Basophils/100 WBC (Bld) 1.0 % Normal 0.0 - 2.0 [facility] Comment on above: Performed By: #### 2 49176 #### [facility],[address] [place] [address] 95091 CBC + DIFF Normal [facility] Comment on above: Result Comment: CBC- COMPLETE BLOOD COUNT Performed By: #### 2 79343 #### [facility],[address] [place] [address] 41247 Eosinophils (Bld) [#/Vol] 0.30 x10EE3/UL Normal 0.00 - 0.50 [facility] Comment on above: Performed By: #### 2 70713 #### [facility],[address] [place] [address] 01281 Eosinophils/100 WBC (Bld) 3.3 % Normal 0.0 - 7.0 [facility] Comment on above: Performed By: #### 2 91327 #### [facility],[address] [place] [address] 47610 Erythrocyte distribution width (RBC) [Ratio] 13.1 % Normal 12.0 - 15.6 [facility] Comment on above: Performed By: #### 2 77841 #### [facility],[address] [place] [address] Hematocrit (Bld) [Volume fraction] 39.0 % Low 40.0 - 52.0 [facility] Comment on above: Performed By: #### 2 84704 #### [facility],[address] [place] [address] Hemoglobin (Bld) [Mass/Vol] 13.4 g/dL Normal 13.0 - 17.5 [facility] Comment on above: Performed By: #### 2 66302 #### [facility],[address] [place] [address] Lymphocytes (Bld) [#/Vol] 1.90 x10EE3/UL Normal 0.80 - 2.80 [facility] Comment on above: Performed By: #### 2 20549 #### [facility],[address] [place], [place] [address] Lymphocytes/100 WBC (Bld) 20.6 % Normal 20.0 - 45.0 [facility] Comment on above: Performed By: #### 2 01545 #### [place] [id number] MANUAL DIFF N/A Normal [facility] Comment on above: Performed By: #### 2 57837 #### [facility],[address] [place] [address] 06254 MCH (RBC) [Entitic mass] 30 pg Normal 27 - 33 [facility] Comment on above: Performed By: #### 2 05996 #### [facility],[address] [place] [address] 19600 MCHC (RBC) [Mass/Vol] 34 X10 3 Normal 32 - 36 [facility] Comment on above: Performed By: #### 2 86425 #### [address],[place] [address] MCV (RBC) [Entitic vol] 88 fL Normal 81 - 98 [facility] Comment on above: Performed By: #### 2 25737 #### [facility],[address] [place] [address] 34857 Monocytes (Bld) [#/Vol] 0.90 x10EE3/UL Normal 0. 20 - 1.00 [facility] Comment on above: Performed By: #### 2 22787 #### [facility],[address] [place] [address] 24670 MONOS % 10.0 % Normal 0.0 - 10.0 [facility] Comment on above: Performed By: #### 2 02610 #### [facility],[address] [place] [address] 20022 Morphology [place] (Bld) [Interp] N/A Normal [facility] Comment on above: Performed By: #### 2 01720 #### [facility],[address] [place] [address] 31497 Neutrophils (Bld) [#/Vol] 5.90 x10EE3/UL Normal 1.50 - 7.10 [facility] Comment on above: Performed By: #### 2 22515 #### [address] [address] Neutrophils/100 WBC (Bld) 65.1 % Normal 46.0 - 76.0 [facility] Comment on above: Performed By: #### 2 38711 #### [facility],[address] [place] [address] 89774 Platelet mean volume (Bld) [Entitic vol] 7.7 fL Normal 6.4 - 10.5 [facility] Comment on above: Result Comment: AUTO MATED DIFFERENTIAL Performed By: #### 2 16904 #### [facility],[address] [place] [address] 35728 Platelets (Bld) [#/Vol] 260 x10EE3/UL Normal 150 - 450 [facility] Comment on above: Performed By: #### 2 88575 #### [facility],[address] [place] [address] RBC (Bld) [#/Vol] 4.41 x 10EE6/UL Low 4.50 - 6.00 [facility] Comment on above: Performed By: #### 2 76671 #### [facility],[address] [place] [address] WBC (Bld) [#/Vol] 9.1 x 10EE3/UL Normal 4.5 - 10.8 [facility] Comment on above: Performed By: #### 2 32068 #### [facility],[address] [place] [address] CULTURE URINEon 01-07-2020 CULTURE URINE CULTURE URINE _URINE CULTURE_ M I C R O B I O L O G Y R E P O R T FINAL ------- Antimicrobial Susceptibility and Organism Identification Report -------- Specimen Number : [id number] Requested : 01/07/20 Specimen Source : CLEAN CATCH URINE Collected : 01/07/20 02:30 Ar[place]ondo of [place]olation : MEME HUANG Received : 01/07/20 02:30 Requesting Physician : FLORECITA -- Patient/Specimen Tests and Comments Specimen Comments -------- -------- FINAL REPORT: NO GROWTH AT 48 HOURS -- Tech : Source : CLEAN CATCH URINE ID # : [id number] FINAL Report Date : / / : Collected : 01/07/20 02:30 01/09/20.1027.BKO. 01/08/20.1302.KLS. 01/09/20.1027.BKO.COMPLETE 01/09/20.1027.BKO[facility] fax Normal [facility] Comment on above: Performed By: #### 2 32426 #### [facility],[address] [place] [address] 80655 LITHIUMon 01-07-2020 [place] [Moles/Vol] 0.6 mmol/L Normal 0.6 - 1.2 [facility] Comment on above: Performed By: #### 2 74599 #### [facility],[address] [place] [address] 96735 URINALYSISon 01-07-2020 Bilirubin [Mass/Vol] Negative Normal NORMAL: NEGATIVE [facility] Comment on above: Performed By: #### 2 27760 #### [facility],[address] [place] [address] 68761 Blood Negative Normal NORMAL: NEGATIVE [facility] Comment on above: Performed By: #### 2 85831 #### [facility],[address] [place] [address] 80917 Clarity (U) clear Normal NORMAL: CLEAR [facility] Comment on above: Performed By: #### 2 66385 #### [facility],[address] [place], [place] [address] Color (U) p.yel Normal NORMAL: YELLOW [facility] Comment on above: Performed By: #### 2 09229 #### [facility],[address] [place] [address] 82828 Glucose [Mass/Vol] NORM Normal NORMAL: NORMAL [facility] Comment on above: Performed By: #### 2 38966 #### [facility],[address] [place], [place] [address] Ketone Negative Normal NORMAL: NEGATIVE [facility] Comment on above: Performed By: #### 2 54834 #### [facility],[address] [place] [address] 88795 Microscopic NOT INDICATED Normal [facility] Comment on above: Performed By: #### 2 92698 #### [facility],[address] [place] [address] 22552 Nitrite Ql (U) Negative Normal NORMAL: NEGATIVE [facility] Comment on above: Performed By: #### 2 71255 #### [facility],[address] [place] [address] 11439 pH (Bld) 6.5 Normal NORMAL: 5.0-8.0 [facility] Comment on above: Performed By: #### 2 31094 #### [facility],[address] [place] [address] 42698 Protein (U) [Mass/Vol] Negative Normal JENN L: NEGATIVE [facility] Comment on above: Performed By: #### 2 94839 #### [facility],[address] [place] [address] 75359 Sp [place] 1.010 Normal NORMAL: 1.010-1.03 0 [facility] Comment on above: Performed By: #### 2 85606 #### [facility],[address] [place] [address] Specimen type Nom (Spec) Clean catch Normal [facility] Comment on above: Performed By: #### 2 66544 #### [facility],[address] [place], [place] [address] Urobilinog NORM Normal NORMAL: NORMAL [facility] Comment on above: Performed By: #### 2 69140 #### [facility],[address] [place] [address] 22687 WBC (Bld) [#/Vol] Negative Normal NORMAL: NEGATIVE [facility] Comment on above: Performed By: #### 2 43171 #### [facility],[address] [place], [place] [address] URINE CREATININE AND PROTEIN RATIOon 01-07-2020 CREATININE UR 75.6 mg/dl Normal [facility] Comment on above: Performed By: #### 2 95556 #### [facility],[address] [place] [address] 86357 PC RATIO 0.07 mg/dL Normal 0.00 - 10.00 [facility] Comment on above: Performed By: #### 2 35173 #### [facility],[address] [place] [address] 34144 Protein (U) [Mass/Vol] mg/dL Normal 0.00 - 10.00 [facility] Comment on above: Performed By: #### 2 04902 #### [facility],[address] [place] [address] 94702 CBC + DIFFon 12-10-2019 Basophils (Bld) [#/Vol] 0.10 x10EE3/UL Normal 0. 00 - 0.10 [facility] Comment on above: Performed By: #### 2 25594 #### [facility],[address] [place], [place] [address] Basophils/100 WBC (Bld) 0.7 % Normal 0.0 - 2.0 [facility] Comment on above: Performed By: #### 2 34595 #### [facility],[address] [place] [address] CBC + DIFF Normal [facility] Comment on above: Result Comment: CBC- COMPLETE BLOOD COUNT Performed By: #### 2 48641 #### [facility],[address] [place] [address] Eosinophils (Bld) [#/Vol] 0.30 x10EE3/UL Normal 0.00 - 0.50 [facility] Comment on above: Performed By: #### 2 45955 #### [facility],[address] [place], [place] [address] Eosinophils/100 WBC (Bld) 3.2 % Normal 0.0 - 7.0 [facility] Comment on above: Performed By: #### 2 49597 #### [facility],[address] [place] [address] Erythrocyte distribution width (RBC) [Ratio] 12.7 % Normal 12.0 - 15.6 [facility] Comment on above: Performed By: #### 2 14413 #### [facility],[address] [place] [address] Hematocrit (Bld) [Volume fraction] 38.7 % Low 40.0 - 52.0 [facility] Comment on above: Performed By: #### 2 92848 #### [facility],[address] [place], [place] [address] Hemoglobin (Bld) [Mass/Vol] 13.4 g/dL Normal 13.0 - 17.5 [facility] Comment on above: Performed By: #### 2 47469 #### [facility],[address] [place] [address] 27057 Lymphocytes (Bld) [#/Vol] 2.10 x10EE3/UL Normal 0.80 - 2.80 [facility] Comment on above: Performed By: #### 2 51254 #### [facility],[address] [place] [address] 68277 Lymphocytes/100 WBC (Bld) 21.3 % Normal 20.0 - 45.0 [facility] Comment on above: Performed By: #### 2 22289 #### [facility],[address] [place] [address] 17130 MANUAL DIFF N/A Normal [facility] Comment on above: Performed By: #### 2 10480 #### [facility],[address] [place] [address] 23409 MCH (RBC) [Entitic mass] 31 pg Normal 27 - 33 [facility] Comment on above: Performed By: #### 2 40894 #### [facility],[address] [place] [address] 65807 MCHC (RBC) [Mass/Vol] 35 X10 3 Normal 32 - 36 [facility] Comment on above: Performed By: #### 2 96349 #### [facility],[address] [place] [address] 37661 MCV (RBC) [Entitic vol] 89 fL Normal 81 - 98 [facility] Comment on above: Performed By: #### 2 70462 #### [facility] [place],[address] [place] [address] 14390 Monocytes (Bld) [#/Vol] 1.00 x10EE3/UL Normal 0. 20 - 1.00 [facility] [place] Comment on above: Performed By: #### 2 96364 #### [facility] [place],[address] [place] [address] 02797 MONOS % 10.5 % High 0.0 - 10.0 [facility] [place] Comment on above: Performed By: #### 2 06384 #### [facility] [place],[address] [place] [address] 42724 Morphology [place]pin (Bld) [Interp] N/A Normal [facility] [place] Comment on above: Performed By: #### 2 13364 #### [facility] [place],[address] [place] [address] 34835 Neutrophils (Bld) [#/Vol] 6.30 x10EE3/UL Normal 1.50 - 7.10 [facility] [place] Comment on above: Performed By: #### 2 99468 #### [facility] [place],[address] [place] [address] 57959 Neutrophils/100 WBC (Bld) 64.3 % Normal 46.0 - 76.0 [facility] [place] Comment on above: Performed By: #### 2 16716 #### [facility] [place],[address] [place] [address] 36101 Platelet mean volume (Bld) [Entitic vol] 7.4 fL Normal 6.4 - 10.5 [facility] [place] Comment on above: Result Comment: AUTO MATED DIFFERENTIAL Performed By: #### 2 52256 #### [facility] [place],[address] [place] [address] 53465 Platelets (Bld) [#/Vol] 254 x10EE3/UL Normal 150 - 450 [facility] [place] Comment on above: Performed By: #### 2 27417 #### [facility] [place],[address] [place] [address] 60788 RBC (Bld) [#/Vol] 4.34 x 10EE6/UL Low 4.50 - 6.00 [facility] [place] Comment on above: Performed By: #### 2 86000 #### [facility] [place],[address] [place] [address] 09720 WBC (Bld) [#/Vol] 9.8 x 10EE3/UL Normal 4.5 - 10.8 [facility] Comment on above: Performed By: #### 2 57629 #### [facility],[address] [place], [place] [id number] CULTURE URINEon 12-10-2019 CULTURE URINE CULTURE URINE _URINE CULTURE_ M I C R O B I O L O G Y R E P O R T FINAL ------- Antimicrobial Susceptibility and Organism Identification Report -------- Specimen Number : [id number] Requested : 12/09/19 Specimen Source : CLEAN CATCH URINE Collected : 12/09/19 23:45 Ar[place] of [place]olation : MEME HUANG Received : 12/09/19 23:45 Requesting Physician : FLORECITA -- Patient/Specimen Tests and Comments Specimen Comments -------- -------- FINAL REPORT: NO GROWTH AT 48 HOURS -- Tech : Source : CLEAN CATCH URINE ID # : [id number] FINAL Report Date : / / : Collected : 12/09/19 23:45 12/12/19.BKO. 12/11/19.38.BKO. 12/12/19.BKO.COMPLETE 12/12/19.BKO.[facility] fax Normal [facility] [place] Comment on above: Performed By: #### 2 99444 #### [facility] [place],[address] [place], [place] [id number] LITHIUMon 12-10-2019 [place] [Moles/Vol] 0.6 mmol/L Normal 0.6 - 1.2 [facility] [place] Comment on above: Performed By: #### 2 03547 #### [facility] [place],[address] [place] [address] 80583 RENAL FUNCTION PANEL WITH eG FRon 12-10-2019 Age - Reported 54 years Normal [facility] [place] Comment on above: Performed By: #### 2 21900 #### [facility] [place],[address] [place] [address] 65405 Albumin [Mass/Vol] 3.6 g/dL Normal 3.4 - 4.8 [facility] [place] Comment on above: Performed By: #### 2 04971 #### [facility] [place],[address] [place] [address] 73322 B/C RATIO 12 ratio Normal 0 - 30 [facility] [place] Comment on above: Performed By: #### 2 18881 #### [facility] [place],[address] [place] [address] 21748 Calcium [Mass/Vol] 9.4 mg/dL Normal 8.6 - 10.2 [facility] [place] Comment on above: Performed By: #### 2 32764 #### [facility] [place],[address] [place], [place] [id number] Chloride [Moles/Vol] 105 mmol/L Normal 98 - 107 [facility] [place] Comment on above: Performed By: #### 2 79396 #### [facility] [place],[address] [place] [address] CO2 [Moles/Vol] 24.4 mmol/L Normal 21.0 - 31.0 [facility] [place] Comment on above: Performed By: #### 2 62906 #### [place] [address] Creatinine [Mass/Vol] 1.9 mg/dL High 0.7 - 1.3 [facility] Comment on above: Performed By: #### 2 29615 #### [place] [id number] GFR/1.73 sq M predicted among non-blacks MDRD (S/P/Bld) [Vol rate/Area] 37 ML/MINUTE Low 60 - 999 [facility] [place] Comment on above: Performed By: #### 2 87550 #### [place] [id number] GFR/1.73 sq M predicted among non-blacks MDRD (S/P/Bld) [Vol rate/Area] 45 ML/MINUTE Low 60 - 999 [facility] [place] Comment on above: Result Comment: ACCO RDING TO THE NATIONAL KIDNEY DISEASE EDUCATION PROGRAM(NKDE), A NORMAL eGFR IS A VALUE GREATER THAN OR EQUAL TO 60 ML/MIN/1.73 SQ METERS. CHRONIC KIDNEY DISEASE: <60mL/MIN/1.73 SQ METERS KIDNEY FAILURE: <15mL/MIN/1.73 SQ METERS THIS TEST SHOULD ONLY BE USED FOR PATIENTS 18 YEARS OF AGE AND OLDER. Performed By: #### 2 50590 #### [place] [id number] Glucose [Mass/Vol] 106 mg/dL Normal 74 - 106 [facility] [place] Comment on above: Performed By: #### 2 75210 #### [facility] [place],[address] [place] [address] 21941 Phosphate [Mass/Vol] 5.0 mg/dL High 2.7 - 4.9 [facility] [place] Comment on above: Performed By: #### 2 96292 #### [facility] [place],[address] [place] [address] 99739 Potassium [Moles/Vol] 3.4 mmol/L Low 3.5 - 5.1 [facility] Comment on above: Performed By: #### 2 85134 #### [facility] [place],[address] [place] [address] RENAL FUNCTION PANEL WITH eGFR Normal [facility] [place] Comment on above: Result Comment: JESSICA L FUNCTION PANEL Performed By: #### 2 66434 #### [facility] [place],[address] [place], [place] [address] Sodium [Moles/Vol] 139 mmol/L Normal 136 - 145 [facility] [place] Comment on above: Performed By: #### 2 81670 #### [facility] [place],[address] [place] [address] 06336 Urea nitrogen [Mass/Vol] 23 mg/dL High 6 - 20 [facility] [place] Comment on above: Performed By: #### 2 22300 #### [facility] [place],[address] [place] [address] 54041 URINALYSISon 12-10-2019 Bilirubin [Mass/Vol] Negative Normal NORMAL: NEGATIVE [facility] [place] Comment on above: Performed By: #### 2 54318 #### [facility] [place],[address] [place] [address] 80121 Blood Negative Normal NORMAL: NEGATIVE [facility] [place] Comment on above: Performed By: #### 2 39799 #### [facility] [place],[address] [place] [address] 79170 Clarity (U) clear Normal NORMAL: CLEAR [facility] [place] Comment on above: Performed By: #### 2 09092 #### [facility] [place],[address] [place] [address] 31405 Color (U) p.yel Normal NORMAL: YELLOW [facility] [place] Comment on above: Performed By: #### 2 35159 #### [facility] [place],[address] [place] [address] 55303 Glucose [Mass/Vol] NORM Normal NORMAL: NORMAL [facility] [place] Comment on above: Performed By: #### 2 01868 #### [facility] [place],[address] [place], [place] [address] Ketone Negative Normal NORMAL: NEGATIVE [facility] [place] Comment on above: Performed By: #### 2 31723 #### [facility] [place],[address] [place], [place] [id number] Microscopic NOT INDICATED Normal [facility] [place] Comment on above: Performed By: #### 2 01844 #### [facility] [place],[address] [place] [address] 75460 Nitrite Ql (U) Negative Normal NORMAL: NEGATIVE [facility] [place] Comment on above: Performed By: #### 2 80598 #### [facility] [place],[address] [place] [address] 86921 pH (Bld) 6 Normal NORMAL: 5.0-8.0 [facility] [place] Comment on above: Performed By: #### 2 38802 #### [facility] [place],[address] [place] [address] 13877 Protein (U) [Mass/Vol] Negative Normal JENN L: NEGATIVE [facility] [place] Comment on above: Performed By: #### 2 38765 #### [facility] [place],[address] [place] [address] 10169 Sp [place] 1.015 Normal NORMAL: 1.010-1.03 0 [facility] [place] Comment on above: Performed By: #### 2 47659 #### [facility] [place],[address] [place] [address] Specimen type Nom (Spec) Clean catch Normal [facility] [place] Comment on above: Performed By: #### 2 29071 #### [facility] [place],[address] [place], [place] [address] Urobilinog NORM Normal NORMAL: NORMAL [facility] [place] Comment on above: Performed By: #### 2 06122 #### [facility] [place],[address] [place], [place] [address] WBC (Bld) [#/Vol] Negative Normal NORMAL: NEGATIVE [facility] [place] Comment on above: Performed By: #### 2 43201 #### [facility] [place],[address] [place], [place] [id number] URINE CREATININE AND PROTEIN RATIOon 12-10-2019 CREATININE UR 97.1 mg/dl Normal [facility] [place] Comment on above: Performed By: #### 2 89231 #### [facility] [place],[address] [place] [address] PC RATIO 0.07 mg/dL Normal 0.00 - 10.00 [facility] [place] Comment on above: Performed By: #### 2 51795 #### [facility] [place],[address] [place], [place] [address] Protein (U) [Mass/Vol] 7.00 mg/dL Normal 0.00 - 10.00 [facility] [place] Comment on above: Performed By: #### 2 22950 #### [facility] [place],[address] [place] [address] 07904 BMP with eGFRon 11-05-2019 Age - Reported 54 years Normal [facility] [place] Comment on above: Performed By: #### 2 27924 #### [facility] [place],[address] [place], [place] [address] Anion gap [Moles/Vol] 12 mmol/L Normal 10 - 20 [facility] Comment on above: Performed By: #### 2 40213 #### [facility] [place],[address] [place] [address] 08664 Chloride [Moles/Vol] 105 mmol/L Normal 98 - 107 [facility] [place] Comment on above: Performed By: #### 2 72199 #### [facility] [place],[address] [place] [address] 10828 CO2 [Moles/Vol] 26.8 mmol/L Normal 21.0 - 31.0 [facility] [place] Comment on above: Performed By: #### 2 17502 #### [facility] [place],[address] [place] [address] 11866 GFR/1.73 sq M predicted among non-blacks MDRD (S/P/Bld) [Vol rate/Area] 38 ML/MINUTE Low 60 - 999 [facility] [place] Comment on above: Result Comment: ACCO RDING TO THE NATIONAL KIDNEY DISEASE EDUCATION PROGRAM(NKDE), A NORMAL eGFR IS A VALUE GREATER THAN OR EQUAL TO 60 ML/MIN/1.73 SQ METERS. CHRONIC KIDNEY DISEASE: <60mL/MIN/1.73 SQ METERS KIDNEY FAILURE: <15mL/MIN/1.73 SQ METERS THIS TEST SHOULD ONLY BE USED FOR PATIENTS 18 YEARS OF AGE AND OLDER. Performed By: #### 2 76105 #### [facility] [place],[address] [place] [address] 62123 GFR/1.73 sq M predicted among non-blacks MDRD (S/P/Bld) [Vol rate/Area] 31 ML/MINUTE Low 60 - 999 [facility] [place] Comment on above: Performed By: #### 2 11717 #### [facility] [place],[address] [place] [address] 26879 GFR/1.73 sq M predicted among non-blacks MDRD (S/P/Bld) [Vol rate/Area] Normal [facility] [place] Comment on above: Result Comment: BASI C METABOLIC PANEL Performed By: #### 2 27620 #### [facility] [place],[address] [place] [address] 17201 Potassium [Moles/Vol] 3.4 mmol/L Low 3.5 - 5.1 [facility] Comment on above: Performed By: #### 2 14735 #### [facility] [place],[address] [place] [address] 16964 Sodium [Moles/Vol] 140 mmol/L Normal 136 - 145 [facility] [place] Comment on above: Performed By: #### 2 17708 #### [facility] [place],[address] [place] [address] 39237 CBC + DIFFon 11-05-2019 Basophils (Bld) [#/Vol] 0.10 x10EE3/UL Normal 0. 00 - 0.10 [facility] [place] Comment on above: Performed By: #### 2 33602 #### [facility] [place],[address] [place] [address] 12164 Basophils/100 WBC (Bld) 0.9 % Normal 0.0 - 2.0 [facility] Comment on above: Performed By: #### 2 15953 #### [facility] [place],[address] [place] [address] 50399 CBC + DIFF Normal [facility] [place] Comment on above: Result Comment: CBC- COMPLETE BLOOD COUNT Performed By: #### 2 27531 #### [facility] [place],[address] [place] [address] 81935 Eosinophils (Bld) [#/Vol] 0.40 x10EE3/UL Normal 0.00 - 0.50 [facility] [place] Comment on above: Performed By: #### 2 92816 #### [facility] [place],[address] [place] [address] 23211 Eosinophils/100 WBC (Bld) 3.9 % Normal 0.0 - 7.0 [facility] [place] Comment on above: Performed By: #### 2 46732 #### [facility] [place],[address] [place] [address] 04972 Erythrocyte distribution width (RBC) [Ratio] 12.4 % Normal 12.0 - 15.6 [facility] [place] Comment on above: Performed By: #### 2 67826 #### [facility] [place],[address] [place] [address] Hematocrit (Bld) [Volume fraction] 39.9 % Low 40.0 - 52.0 [facility] [place] Comment on above: Performed By: #### 2 74994 #### [facility] [place],[address] [place] [address] Hemoglobin (Bld) [Mass/Vol] 13.3 g/dL Normal 13.0 - 17.5 [facility] [place] Comment on above: Performed By: #### 2 26409 #### [facility] [place],[address] [place] [address] Lymphocytes (Bld) [#/Vol] 1.90 x10EE3/UL Normal 0.80 - 2.80 [facility] [place] Comment on above: Performed By: #### 2 68004 #### [facility] [place],[address] [place], [place] [address] Lymphocytes/100 WBC (Bld) 20.3 % Normal 20.0 - 45.0 [facility] [place] Comment on above: Performed By: #### 2 21206 #### [facility] [place],[address] [place] [address] MANUAL DIFF N/A Normal [facility] [place] Comment on above: Performed By: #### 2 20373 #### [facility] [place],[address] [place], [place] [address] MCH (RBC) [Entitic mass] 30 pg Normal 27 - 33 [facility] [place] Comment on above: Performed By: #### 2 24989 #### [facility] [place],[address] [place], [place] [address] MCHC (RBC) [Mass/Vol] 33 X10 3 Normal 32 - 36 [facility] Comment on above: Performed By: #### 2 56736 #### [facility] [place],[address],[place] [address] MCV (RBC) [Entitic vol] 91 fL Normal 81 - 98 [facility] Comment on above: Performed By: #### 2 39283 #### [facility] [place],[address] [place] [address] 65703 Monocytes (Bld) [#/Vol] 1.00 x10EE3/UL Normal 0. 20 - 1.00 [facility] [place] Comment on above: Performed By: #### 2 74377 #### [facility] [place],[address] [place] [address] 43980 MONOS % 10.5 % High 0.0 - 10.0 [facility] [place] Comment on above: Performed By: #### 2 32818 #### [facility] [place],[address] [place] [address] 72781 Morphology [place] (Bld) [Interp] N/A Normal [facility] [place] Comment on above: Performed By: #### 2 12649 #### [facility] [place],[address] [place] [address] 26277 Neutrophils (Bld) [#/Vol] 6.10 x10EE3/UL Normal 1.50 - 7.10 [facility] [place] Comment on above: Performed By: #### 2 03985 #### [facility] [place],[address] [place] [address] 05736 Neutrophils/100 WBC (Bld) 64.4 % Normal 46.0 - 76.0 [facility] [place] Comment on above: Performed By: #### 2 65379 #### [facility] [place],[address] [place] [address] 11000 Platelet mean volume (Bld) [Entitic vol] 7.4 fL Normal 6.4 - 10.5 [facility] [place] Comment on above: Result Comment: AUTO MATED DIFFERENTIAL Performed By: #### 2 53461 #### [facility] [place],[address] [place] [address] 06290 Platelets (Bld) [#/Vol] 260 x10EE3/UL Normal 150 - 450 [facility] [place] Comment on above: Performed By: #### 2 71998 #### [facility] [place],[address] [place] [address] 27984 RBC (Bld) [#/Vol] 4.38 x 10EE6/UL Low 4.50 - 6.00 [facility] [place] Comment on above: Performed By: #### 2 52437 #### [facility] [place],[address] [place] [address] 82948 WBC (Bld) [#/Vol] 9.4 x 10EE3/UL Normal 4.5 - 10.8 [facility] Comment on above: Performed By: #### 2 12723 #### [facility] [place],[address] [place] [address] 80787 LITHIUMon 11-05-2019 [place] [Moles/Vol] 0.5 mmol/L Low 0.6 - 1.2 [facility] [place] Comment on above: Performed By: #### 2 21772 #### [facility] [place],[address] [place] [address] 20010 RENAL FUNCTION PANELon 11-05 Albumin [Mass/Vol] 3.5 g/dL Normal 3.4 - 4.8 [facility] [place] Comment on above: Performed By: #### 2 82494 #### [facility] [place],[address] [place] [address] 85406 B/C RATIO 9 ratio Normal 0 - 30 [facility] [place] Comment on above: Performed By: #### 2 24392 #### [facility] [place],[address] [place] [address] 04336 Calcium [Mass/Vol] 9.4 mg/dL Normal 8.6 - 10.2 [facility] [place] Comment on above: Performed By: #### 2 03035 #### [facility] [place],[address] [place] [address] 24749 Creatinine [Mass/Vol] 2.2 mg/dL High 0.7 - 1.3 [facility] Comment on above: Performed By: #### 2 86545 #### [facility] [place],[address] [place] [address] 49131 Glucose [Mass/Vol] 105 mg/dL Normal 74 - 106 [facility] [place] Comment on above: Performed By: #### 2 21986 #### [facility] [place],[address] [place] [address] 53199 Phosphate [Mass/Vol] 4.3 mg/dL Normal 2.7 - 4.9 [facility] [place] Comment on above: Performed By: #### 2 09017 #### [facility] [place],[address] [place] [address] RENAL FUNCTION PANEL Normal [facility] [place] Comment on above: Result Comment: JESSICA L FUNCTION PANEL Performed By: #### 2 96771 #### [facility] [place],[address] [place] [address] 56562 Urea nitrogen [Mass/Vol] 20 mg/dL Normal 6 - 20 [facility] [place] Comment on above: Performed By: #### 2 88519 #### [facility] [place],[address] [place] [address] 96483 URINALYSISon 11-05-2019 Bilirubin [Mass/Vol] Negative Normal NORMAL: NEGATIVE [facility] [place] Comment on above: Performed By: #### 2 92060 #### [facility] [place],[address] [place], [place] [address] Blood Negative Normal NORMAL: NEGATIVE [facility] [place] Comment on above: Performed By: #### 2 76825 #### [facility] [place],[address] [place] [address] 17880 Clarity (U) clear Normal NORMAL: CLEAR [facility] [place] Comment on above: Performed By: #### 2 76378 #### [facility] [place],[address] [place] [address] 79359 Color (U) p.yel Normal NORMAL: YELLOW [facility] [place] Comment on above: Performed By: #### 2 91185 #### [facility] [place],[address] [place] [address] Glucose [Mass/Vol] NORM Normal NORMAL: NORMAL [facility] [place] Comment on above: Performed By: #### 2 60416 #### [facility] [place],[address] [place] [address] Ketone Negative Normal NORMAL: NEGATIVE [facility] [place] Comment on above: Performed By: #### 2 17953 #### [facility] [place],[address] [place] [address] Microscopic NOT INDICATED Normal [facility] [place] Comment on above: Performed By: #### 2 69196 #### [facility] [place],[address] [place] [address] Nitrite Ql (U) Negative Normal NORMAL: NEGATIVE [facility] [place] Comment on above: Performed By: #### 2 31054 #### [facility] [place],[address] [place] [address] pH (Bld) 6.5 Normal NORMAL: 5.0-8.0 [facility] [place] Comment on above: Performed By: #### 2 81842 #### [facility] [place],[address] [place] [address] Protein (U) [Mass/Vol] Negative Normal JENN L: NEGATIVE [facility] [place] Comment on above: Performed By: #### 2 96246 #### [facility] [place],[address] [place] [address] Sp [place] 1.010 Normal NORMAL: 1.010-1.03 0 [facility] [place] Comment on above: Performed By: #### 2 40624 #### [facility] [place],[address] [place] [address] Specimen type Nom (Spec) UNSPECIFIED Normal [facility] [place] Comment on above: Performed By: #### 2 04482 #### [facility] [place],[address] [place] [address] Urobilinog NORM Normal NORMAL: NORMAL [facility] [place] Comment on above: Performed By: #### 2 19407 #### [facility] [place],[address] [place] [address] 86166 WBC (Bld) [#/Vol] Negative Normal NORMAL: NEGATIVE [facility] [place] Comment on above: Performed By: #### 2 [id number] #### [facility] [place],[address] [place] [address] URINE CREATININE AND PROTEIN RATIOon 11-05-2019 CREATININE UR 72.6 mg/dl Normal [facility] [place] Comment on above: Performed By: #### 2 77909 #### [facility] [place],[address] [place] [address] PC RATIO 0.07 mg/dL Normal 0.00 - 10.00 [facility] [place] Comment on above: Performed By: #### 2 08103 #### [facility] [place],[address] [place] [address] 71285 Protein (U) [Mass/Vol] mg/dL Normal 0.00 - 10.00 [facility] [place] Comment on above: Performed By: #### 2 34164 #### [facility] [place],[address] [place] [address] BMP with eGFRon 10-08-2019 Age - Reported 54 years Normal [facility] [place] Comment on above: Performed By: #### 2 88146 #### [facility] [place],[address] [place] [address] 38233 Anion gap [Moles/Vol] 12 mmol/L Normal 10 - 20 [facility] Comment on above: Performed By: #### 2 56434 #### [facility] [place],[address] [place] [address] 84152 Calcium [Mass/Vol] 9.2 mg/dL Normal 8.6 - 10.2 [facility] [place] Comment on above: Performed By: #### 2 60655 #### [facility] [place],[address] [place] [address] 38065 Chloride [Moles/Vol] 107 mmol/L Normal 98 - 107 [facility] [place] Comment on above: Performed By: #### 2 92110 #### [facility] [place],[address] [place] [address] 92831 CO2 [Moles/Vol] 26.7 mmol/L Normal 21.0 - 31.0 [facility] [place] Comment on above: Performed By: #### 2 93190 #### [facility] [place],[address] [place] [address] 13284 Creatinine [Mass/Vol] 2.1 mg/dL High 0.7 - 1.3 [facility] Comment on above: Performed By: #### 2 40542 #### [facility] [place],[address] [place] [address] 07797 GFR/1.73 sq M predicted among non-blacks MDRD (S/P/Bld) [Vol rate/Area] Normal [facility] [place] Comment on above: Result Comment: BASI C METABOLIC PANEL Performed By: #### 2 14296 #### [facility] [place],[address] [place] [address] 37463 GFR/1.73 sq M predicted among non-blacks MDRD (S/P/Bld) [Vol rate/Area] 40 ML/MINUTE Low 60 - 999 [facility] [place] Comment on above: Result Comment: ACCO RDING TO THE NATIONAL KIDNEY DISEASE EDUCATION PROGRAM(NKDE), A NORMAL eGFR IS A VALUE GREATER THAN OR EQUAL TO 60 ML/MIN/1.73 SQ METERS. CHRONIC KIDNEY DISEASE: <60mL/MIN/1.73 SQ METERS KIDNEY FAILURE: <15mL/MIN/1.73 SQ METERS THIS TEST SHOULD ONLY BE USED FOR PATIENTS 18 YEARS OF AGE AND OLDER. Performed By: #### 2 94191 #### [facility] [place],[address] [place] [address] 89961 GFR/1.73 sq M predicted among non-blacks MDRD (S/P/Bld) [Vol rate/Area] 33 ML/MINUTE Low 60 - 999 [facility] [place] Comment on above: Performed By: #### 2 67868 #### [facility] [place],[address] [place] [address] 00346 Glucose [Mass/Vol] 106 mg/dL Normal 74 - 106 [facility] [place] Comment on above: Performed By: #### 2 30548 #### [facility] [place],[address] [place] [address] 77913 Potassium [Moles/Vol] 3.6 mmol/L Normal 3.5 - 5.1 [facility] Comment on above: Performed By: #### 2 66335 #### [facility] [place],[address] [place] [address] 19734 Sodium [Moles/Vol] 142 mmol/L Normal 136 - 145 [facility] [place] Comment on above: Performed By: #### 2 02454 #### [address] [address] Urea nitrogen [Mass/Vol] 22 mg/dL High 6 - 20 [facility] [place] Comment on above: Performed By: #### 2 50674 #### [facility] [place],[address] [place] [address] 14708 CBC + DIFFon 10-08-2019 Basophils (Bld) [#/Vol] 0.10 x10EE3/UL Normal 0. 00 - 0.10 [facility] [place] Comment on above: Performed By: #### 2 61715 #### [facility] [place],[address] [place] [address] 23226 Basophils/100 WBC (Bld) 0.7 % Normal 0.0 - 2.0 [facility] Comment on above: Performed By: #### 2 13523 #### [address] [address] CBC + DIFF Normal [facility] [place] Comment on above: Result Comment: CBC- COMPLETE BLOOD COUNT Performed By: #### 2 69201 #### [facility] [place],[address] [place] [address] 86552 Eosinophils (Bld) [#/Vol] 0.50 x10EE3/UL Normal 0.00 - 0.50 [facility] [place] Comment on above: Performed By: #### 2 34122 #### [facility] [place],[address] [place] [address] 71317 Eosinophils/100 WBC (Bld) 5.1 % Normal 0.0 - 7.0 [facility] [place] Comment on above: Performed By: #### 2 54492 #### [facility] [place],[address] [place] [address] 87295 Erythrocyte distribution width (RBC) [Ratio] 12.8 % Normal 12.0 - 15.6 [facility] [place] Comment on above: Performed By: #### 2 03483 #### [facility] [place],[address] [place] [address] 37662 Hematocrit (Bld) [Volume fraction] 37.6 % Low 40.0 - 52.0 [facility] [place] Comment on above: Performed By: #### 2 05817 #### [facility] [place],[address] [place] [address] 27363 Hemoglobin (Bld) [Mass/Vol] 12.5 g/dL Low 13.0 - 17.5 [facility] [place] Comment on above: Performed By: #### 2 06999 #### [facility] [place],[address] [place] [address] 99520 Lymphocytes (Bld) [#/Vol] 1.90 x10EE3/UL Normal 0.80 - 2.80 [facility] [place] Comment on above: Performed By: #### 2 90294 #### [facility] [place],[address] [place] [address] 65046 Lymphocytes/100 WBC (Bld) 18.6 % Low 20.0 - 45.0 [facility] [place] Comment on above: Performed By: #### 2 16638 #### [facility] [place],[address] [place] [address] 19711 MANUAL DIFF N/A Normal [facility] [place] Comment on above: Performed By: #### 2 21201 #### [facility] [place],[address] [place] [address] 55225 MCH (RBC) [Entitic mass] 31 pg Normal 27 - 33 [facility] [place] Comment on above: Performed By: #### 2 77993 #### [facility] [place],[address] [place] [address] 79708 MCHC (RBC) [Mass/Vol] 33 X10 3 Normal 32 - 36 [facility] Comment on above: Performed By: #### 2 63992 #### [facility] [place],[address] [place] [address] 10677 MCV (RBC) [Entitic vol] 93 fL Normal 81 - 98 [facility] Comment on above: Performed By: #### 2 76998 #### [address] [address] Monocytes (Bld) [#/Vol] 1.00 x10EE3/UL Normal 0. 20 - 1.00 [facility] [place] Comment on above: Performed By: #### 2 59661 #### [place] [id number] MONOS % 9.4 % Normal 0.0 - 10.0 [facility] [place] Comment on above: Performed By: #### 2 94470 #### [facility] [place],[address] [place] [address] 05255 Morphology [place] (Bld) [Interp] N/A Normal [facility] [place] Comment on above: Performed By: #### 2 87857 #### [facility] [place],[address] [place] [address] 25165 Neutrophils (Bld) [#/Vol] 6.90 x10EE3/UL Normal 1.50 - 7.10 [facility] [place] Comment on above: Performed By: #### 2 54749 #### [facility] [place],[address],[place] [address] Neutrophils/100 WBC (Bld) 66.2 % Normal 46.0 - 76.0 [facility] [place] Comment on above: Performed By: #### 2 65353 #### [facility] [place],[address] [place] [address] Platelet mean volume (Bld) [Entitic vol] 7.7 fL Normal 6.4 - 10.5 [facility] [place] Comment on above: Result Comment: AUTO MATED DIFFERENTIAL Performed By: #### 2 66975 #### [place] [address] Platelets (Bld) [#/Vol] 250 x10EE3/UL Normal 150 - 450 [facility] [place] Comment on above: Performed By: #### 2 09382 #### [place] [address] RBC (Bld) [#/Vol] 4.07 x 10EE6/UL Low 4.50 - 6.00 [facility] [place] Comment on above: Performed By: #### 2 16473 #### [place] [id number] WBC (Bld) [#/Vol] 10.4 x 10EE3/UL Normal 4.5 - 10.8 [facility] Comment on above: Performed By: #### 2 82875 #### [facility] [place],[address] [place], [place] [address] CULTURE URINEon 10-08-2019 CULTURE URINE CULTURE URINE _URINE CULTURE_ M I C R O B I O L O G Y R E P O R T FINAL ------- Antimicrobial Susceptibility and Organism Identification Report -------- Specimen Number : [id number] Requested : 10/08/19 Specimen Source : URINE Collected : 10/08/19 08:30 [employer] [place] : MAJORA SAL Received : 10/08/19 08:30 Requesting Physician : FLORECITA -- Patient/Specimen Tests and Comments Specimen Comments -------- -------- FINAL REPORT: NO GROWTH AT 48 HOURS -- Tech : Source : URINE ID # : [id number] FINAL Report Date : / / : Collected : 10/08/19 08:30 10/10/19.1115.BKO. 10/09/19.1011.BKO. 10/10/19.1115.BKO.COMPLETE Normal [facility] [place] Comment on above: Performed By: #### 2 50840 #### [facility] [place],[address] [place] [address] 20464 HEPATIC FUNCTION PANELon ALK PHOS 52 U/L Normal 38 - 126 [facility] [place] Comment on above: Performed By: #### 2 49442 #### [facility] [place],[address] [place] [address] 43869 ALT/SGPT 15 U/L Normal 10 - 40 [facility] [place] Comment on above: Performed By: #### 2 81651 #### [facility] [place],[address] [place] [address] 34957 AST/SGOT 9 U/L Low 13 - 39 [facility] [place] Comment on above: Performed By: #### 2 46357 #### [facility] [place],[address] [place] [address] 81855 Bilirubin [Mass/Vol] 0.3 mg/dL Normal 0.0 - 1.5 [facility] [place] Comment on above: Performed By: #### 2 68101 #### [facility] [place],[address] [place] [address] 40319 Bilirubin.direct [Mass/Vol] 0.1 mg/dL Normal 0.0 - 0.1 [facility] [place] Comment on above: Performed By: #### 2 00375 #### [facility] [place],[address] [place] [address] 90751 HEPATIC FUNCTION PANEL Normal [facility] Comment on above: Result Comment: HEPA TIC FUNCTION PROFILE Performed By: #### 2 10142 #### [facility] [place],[address] [place] [address] 74847 Protein [Mass/Vol] 5.5 g/dL Low 6.4 - 8.3 [facility] [place] Comment on above: Performed By: #### 2 25923 #### [facility] [place],[address] [place] [address] 93402 LITHIUMon 10-08-2019 [place] [Moles/Vol] 0.6 mmol/L Normal 0.6 - 1.2 [facility] [place] Comment on above: Performed By: #### 2 89317 #### [facility] [place],[address] [place] [address] 96196 RENAL FUNCTION PANELon 10-08 Albumin [Mass/Vol] 3.5 g/dL Normal 3.4 - 4.8 [facility] [place] Comment on above: Performed By: #### 2 43735 #### [facility] [place],[address] [place] [address] 26518 B/C RATIO 10 ratio Normal 0 - 30 [facility] [place] Comment on above: Performed By: #### 2 03374 #### [facility] [place],[address] [place] [address] 15714 Calcium [Mass/Vol] 9.2 mg/dL Normal 8.6 - 10.2 [facility] [place] Comment on above: Performed By: #### 2 70856 #### [facility] [place],[address] [place] [address] 92795 Chloride [Moles/Vol] 107 mmol/L Normal 98 - 107 [facility] [place] Comment on above: Performed By: #### 2 24854 #### [facility] [place],[address] [place] [address] 96124 CO2 [Moles/Vol] 26.7 mmol/L Normal 21.0 - 31.0 [facility] [place] Comment on above: Performed By: #### 2 95374 #### [facility] [place],[address] [place] [address] 50638 Creatinine [Mass/Vol] 2.1 mg/dL High 0.7 - 1.3 [facility] Comment on above: Performed By: #### 2 34957 #### [facility] [place],[address] [place] [address] 30140 Glucose [Mass/Vol] 106 mg/dL Normal 74 - 106 [facility] [place] Comment on above: Performed By: #### 2 05605 #### [facility] [place],[address] [place] [address] 07163 Phosphate [Mass/Vol] 4.7 mg/dL Normal 2.7 - 4.9 [facility] [place] Comment on above: Performed By: #### 2 22787 #### [facility] [place],[address] [place] [address] 10735 Potassium [Moles/Vol] 3.6 mmol/L Normal 3.5 - 5.1 [facility] Comment on above: Performed By: #### 2 50243 #### [facility] [place],[address] [place] [address] RENAL FUNCTION PANEL Normal [facility] [place] Comment on above: Result Comment: JESSICA L FUNCTION PANEL Performed By: #### 2 71405 #### [facility] [place],[address] [place] [address] Sodium [Moles/Vol] 142 mmol/L Normal 136 - 145 [facility] [place] Comment on above: Performed By: #### 2 91509 #### [facility] [place],[address] [place], [place] [address] Urea nitrogen [Mass/Vol] 22 mg/dL High 6 - 20 [facility] [place] Comment on above: Performed By: #### 2 22409 #### [facility] [place],[address] [place], [place] [address] URINALYSISon 10-08-2019 Bilirubin [Mass/Vol] Negative Normal NORMAL: NEGATIVE [facility] [place] Comment on above: Performed By: #### 2 85974 #### [facility] [place],[address] [place] [address] 23301 Blood Negative Normal NORMAL: NEGATIVE [facility] [place] Comment on above: Performed By: #### 2 48767 #### [facility] [place],[address] [place] [address] 35768 Clarity (U) clear Normal NORMAL: CLEAR [facility] [place] Comment on above: Performed By: #### 2 60042 #### [facility] [place],[address] [place] [address] 28812 Color (U) p.yel Normal NORMAL: YELLOW [facility] [place] Comment on above: Performed By: #### 2 84140 #### [facility] [place],[address] [place] [address] 40858 Glucose [Mass/Vol] NORM Normal NORMAL: NORMAL [facility] [place] Comment on above: Performed By: #### 2 10629 #### [facility] [place],[address] [place] [address] 18691 Ketone Negative Normal NORMAL: NEGATIVE [facility] [place] Comment on above: Performed By: #### 2 24416 #### [facility] [place],[address] [place] [address] 17662 Microscopic NOT INDICATED Normal [facility] [place] Comment on above: Performed By: #### 2 26875 #### [facility] [place],[address] [place] [address] 66360 Nitrite Ql (U) Negative Normal NORMAL: NEGATIVE [facility] [place] Comment on above: Performed By: #### 2 67769 #### [facility] [place],[address] [place], [place] [address] pH (Bld) 6 Normal NORMAL: 5.0-8.0 [facility] [place] Comment on above: Performed By: #### 2 51956 #### [facility] [place],[address] [place] [address] 34451 Protein (U) [Mass/Vol] Negative Normal JENN L: NEGATIVE [facility] [place] Comment on above: Performed By: #### 2 33332 #### [facility] [place],[address] [place] [address] 20871 Sp [place] 1.015 Normal NORMAL: 1.010-1.03 0 [facility] [place] Comment on above: Performed By: #### 2 40792 #### [facility] [place],[address] [place] [address] 55562 Specimen type Nom (Spec) Clean catch Normal [facility] [place] Comment on above: Performed By: #### 2 97347 #### [facility] [place],[address] [place] [address] 04613 Urobilinog NORM Normal NORMAL: NORMAL [facility] [place] Comment on above: Performed By: #### 2 11191 #### [facility] [place],[address] [place] [address] 79559 WBC (Bld) [#/Vol] Negative Normal NORMAL: NEGATIVE [facility] [place] Comment on above: Performed By: #### 2 73439 #### [facility] [place],[address] [place] [address] 08525 CBC + DIFFon 09-10-2019 Basophils (Bld) [#/Vol] 0.10 x10EE3/UL Normal 0. 00 - 0.10 [facility] [place] Comment on above: Performed By: #### 2 61037 #### [facility] [place],[address] [place] [address] 64675 Basophils/100 WBC (Bld) 1.0 % Normal 0.0 - 2.0 [facility] Comment on above: Performed By: #### 2 24042 #### [facility] [place],[address] [place] [address] 58078 CBC + DIFF Normal [facility] [place] Comment on above: Result Comment: CBC- COMPLETE BLOOD COUNT Performed By: #### 2 51802 #### [facility] [place],[address] [place] [address] 98849 Eosinophils (Bld) [#/Vol] 0.50 x10EE3/UL Normal 0.00 - 0.50 [facility] [place] Comment on above: Performed By: #### 2 70257 #### [facility] [place],[address] [place] [address] 07195 Eosinophils/100 WBC (Bld) 6.3 % Normal 0.0 - 7.0 [facility] [place] Comment on above: Performed By: #### 2 58353 #### [facility] [place],[address] [place] [address] 66262 Erythrocyte distribution width (RBC) [Ratio] 13.3 % Normal 12.0 - 15.6 [facility] [place] Comment on above: Performed By: #### 2 56671 #### [facility] [place],[address] [place] [address] 50497 Hematocrit (Bld) [Volume fraction] 36.9 % Low 40.0 - 52.0 [facility] [place] Comment on above: Performed By: #### 2 81699 #### [facility] [place],[address] [place] [address] 62805 Hemoglobin (Bld) [Mass/Vol] 12.5 g/dL Low 13.0 - 17.5 [facility] [place] Comment on above: Performed By: #### 2 41397 #### [facility] [place],[address] [place], [place] [address] Lymphocytes (Bld) [#/Vol] 2.20 x10EE3/UL Normal 0.80 - 2.80 [facility] [place] Comment on above: Performed By: #### 2 50216 #### [facility] [place],[address] [place], [place] [address] Lymphocytes/100 WBC (Bld) 25.0 % Normal 20.0 - 45.0 [facility] [place] Comment on above: Performed By: #### 2 74394 #### [facility] [place],[address] [place] [address] 43519 MANUAL DIFF N/A Normal [facility] [place] Comment on above: Performed By: #### 2 81652 #### [facility] [place],[address] [place] [address] 60021 MCH (RBC) [Entitic mass] 31 pg Normal 27 - 33 [facility] [place] Comment on above: Performed By: #### 2 84677 #### [facility] [place],[address] [place] [address] 65572 MCHC (RBC) [Mass/Vol] 34 X10 3 Normal 32 - 36 [facility] Comment on above: Performed By: #### 2 44665 #### [facility] [place],[address] [place] [address] 82298 MCV (RBC) [Entitic vol] 93 fL Normal 81 - 98 [facility] Comment on above: Performed By: #### 2 50040 #### [facility] [place],[address] [place] [address] 17377 Monocytes (Bld) [#/Vol] 0.90 x10EE3/UL Normal 0. 20 - 1.00 [facility] [place] Comment on above: Performed By: #### 2 66414 #### [facility] [place],[address] [place] [address] 61795 MONOS % 10.6 % High 0.0 - 10.0 [facility] [place] Comment on above: Performed By: #### 2 57824 #### [facility] [place],[address] [place] [address] 67420 Morphology [place] (Bld) [Interp] N/A Normal [facility] [place] Comment on above: Performed By: #### 2 99765 #### [facility] [place],[address] [place] [address] 06561 Neutrophils (Bld) [#/Vol] 5.00 x10EE3/UL Normal 1.50 - 7.10 [facility] [place] Comment on above: Performed By: #### 2 16487 #### [facility] [place],[address] [place] [address] 13251 Neutrophils/100 WBC (Bld) 57.1 % Normal 46.0 - 76.0 [facility] [place] Comment on above: Performed By: #### 2 82990 #### [facility] [place],[address] [place] [address] 14242 Platelet mean volume (Bld) [Entitic vol] 7.6 fL Normal 6.4 - 10.5 [facility] [place] Comment on above: Result Comment: AUTO MATED DIFFERENTIAL Performed By: #### 2 43931 #### [facility] [place],[address] [place] [address] 61598 Platelets (Bld) [#/Vol] 236 x10EE3/UL Normal 150 - 450 [facility] [place] Comment on above: Performed By: #### 2 18065 #### [facility] [place],[address] [place] [address] RBC (Bld) [#/Vol] 3.99 x 10EE6/UL Low 4.50 - 6.00 [facility] [place] Comment on above: Performed By: #### 2 65460 #### [facility] [place],[address] [place] [address] 83727 WBC (Bld) [#/Vol] 8.7 x 10EE3/UL Normal 4.5 - 10.8 [facility] Comment on above: Performed By: #### 2 22777 #### [facility] [place],[address] [place] [address] CULTURE URINEon 09-10-2019 CULTURE URINE CULTURE URINE _URINE CULTURE_ M I C R O B I O L O G Y R E P O R T FINAL ------- Antimicrobial Susceptibility and Organism Identification Report -------- Specimen Number : [id number] Requested : 09/10/19 Specimen Source : CLEAN CATCH URINE Collected : 09/10/19 04:30 [employer] [place] : MEME HUANG Received : 09/10/19 04:30 Requesting Physician : FLORECITA -- Patient/Specimen Tests and Comments Specimen Comments -------- -------- FINAL REPORT: NO GROWTH AT 48 HOURS -- Tech : Source : CLEAN CATCH URINE ID # : [id number] FINAL Report Date : / / : Collected : 09/10/19 04:30 09/12/19.BKO. 09/11/190717.JLN. 09/12/19.BKO.COMPLETE 09/12/19.BKO.[facility] via fax Normal [facility] Comment on above: Performed By: #### 2 65730 #### [facility],[address] [place] [address] 06568 LITHIUMon 09-10-2019 [place] [Moles/Vol] 0.6 mmol/L Normal 0.6 - 1.2 [facility] Comment on above: Performed By: #### 2 18968 #### [facility],[address] [place] [address] 43128 RENAL FUNCTION PANEL WITH eG FRon 09-10-2019 Age - Reported 54 years Normal [facility] Comment on above: Performed By: #### 2 44636 #### [facility],[address] [place] [address] 83015 Albumin [Mass/Vol] 3.4 g/dL Normal 3.4 - 4.8 [facility] Comment on above: Performed By: #### 2 26459 #### [facility],[address] [place] [address] 18330 B/C RATIO 11 ratio Normal 0 - 30 [facility] Comment on above: Performed By: #### 2 85798 #### [facility],[address] [place] [address] 83368 Calcium [Mass/Vol] 9.2 mg/dL Normal 8.6 - 10.2 [facility] Comment on above: Performed By: #### 2 67118 #### [facility],[address] [place] [address] 51914 Chloride [Moles/Vol] 107 mmol/L Normal 98 - 107 [facility] Comment on above: Performed By: #### 2 23156 #### [facility],[address] [place] [address] 16984 CO2 [Moles/Vol] 25.3 mmol/L Normal 21.0 - 31.0 [facility] Comment on above: Performed By: #### 2 10714 #### [facility],[address] [place] [address] 83869 Creatinine [Mass/Vol] 2.2 mg/dL High 0.7 - 1.3 [facility] Comment on above: Performed By: #### 2 34974 #### [facility],[address] [place] [address] 82663 GFR/1.73 sq M predicted among non-blacks MDRD (S/P/Bld) [Vol rate/Area] 31 ML/MINUTE Low 60 - 999 [facility] Comment on above: Performed By: #### 2 66477 #### [facility],[address] [place] [address] 96169 GFR/1.73 sq M predicted among non-blacks MDRD (S/P/Bld) [Vol rate/Area] 38 ML/MINUTE Low 60 - 999 [facility] Comment on above: Result Comment: ACCO RDING TO THE NATIONAL KIDNEY DISEASE EDUCATION PROGRAM(NKDE), A NORMAL eGFR IS A VALUE GREATER THAN OR EQUAL TO 60 ML/MIN/1.73 SQ METERS. CHRONIC KIDNEY DISEASE: <60mL/MIN/1.73 SQ METERS KIDNEY FAILURE: <15mL/MIN/1.73 SQ METERS THIS TEST SHOULD ONLY BE USED FOR PATIENTS 18 YEARS OF AGE AND OLDER. Performed By: #### 2 48074 #### [facility],[address] [place] [address] 56935 Glucose [Mass/Vol] 96 mg/dL Normal 74 - 106 [facility] Comment on above: Performed By: #### 2 26832 #### [facility],[address] [place] [address] 93723 Phosphate [Mass/Vol] 4.5 mg/dL Normal 2.7 - 4.9 [facility] Comment on above: Performed By: #### 2 91688 #### [facility],[address] [place] [address] 98823 Potassium [Moles/Vol] 3.5 mmol/L Normal 3.5 - 5.1 [facility] Comment on above: Performed By: #### 2 71688 #### [facility],[address] [place] [address] 94590 RENAL FUNCTION PANEL WITH eGFR Normal [facility] Comment on above: Result Comment: JESSICA L FUNCTION PANEL Performed By: #### 2 40303 #### [facility],[address] [place] [address] 65593 Sodium [Moles/Vol] 141 mmol/L Normal 136 - 145 [facility] Comment on above: Performed By: #### 2 64895 #### [facility],[address] [place] [address] 76036 Urea nitrogen [Mass/Vol] 24 mg/dL High 6 - 20 [facility] Comment on above: Performed By: #### 2 06286 #### [facility],[address] [place] [address] 52785 URINALYSISon 09-10-2019 Bilirubin [Mass/Vol] Negative Normal NORMAL: NEGATIVE [facility] Comment on above: Performed By: #### 2 10389 #### [facility],[address] [place] [address] 28812 Blood Negative Normal NORMAL: NEGATIVE [facility] Comment on above: Performed By: #### 2 91519 #### [facility],[address] [place] [address] 25680 Clarity (U) clear Normal NORMAL: CLEAR [facility] Comment on above: Performed By: #### 2 09239 #### [facility],[address] [place] [address] 76241 Color (U) p.yel Normal NORMAL: YELLOW [facility] Comment on above: Performed By: #### 2 77032 #### [facility],[address] [place] [address] 71126 Glucose [Mass/Vol] NORM Normal NORMAL: NORMAL [facility] Comment on above: Performed By: #### 2 87363 #### [facility],[address] [place] [address] 69131 Ketone Negative Normal NORMAL: NEGATIVE [facility] Comment on above: Performed By: #### 2 47426 #### [facility],[address] [place] [address] 93458 Microscopic NOT INDICATED Normal [facility] Comment on above: Performed By: #### 2 05104 #### [facility],[address] [place] [address] 97133 Nitrite Ql (U) Negative Normal NORMAL: NEGATIVE [facility] Comment on above: Performed By: #### 2 64708 #### [facility],[address] [place] [address] 17915 pH (Bld) 6.5 Normal NORMAL: 5.0-8.0 [facility] Comment on above: Performed By: #### 2 93851 #### [facility],[address] [place] [address] Protein (U) [Mass/Vol] Negative Normal JENN L: NEGATIVE [facility] Comment on above: Performed By: #### 2 08364 #### [facility],[address] [place] [address] Sp [place] 1.010 Normal NORMAL: 1.010-1.03 0 [facility] Comment on above: Performed By: #### 2 83781 #### [facility],[address] [place] [address] Specimen type Nom (Spec) Clean catch Normal [facility] Comment on above: Performed By: #### 2 81441 #### [facility],[address] [place] [address] Urobilinog NORM Normal NORMAL: NORMAL [facility] Comment on above: Performed By: #### 2 23505 #### [facility],[address] [place] [address] WBC (Bld) [#/Vol] Negative Normal NORMAL: NEGATIVE [facility] Comment on above: Performed By: #### 2 39178 #### [facility],[address] [place] [address] URINE CREATININE AND PROTEIN RATIOon 09-10-2019 CREATININE UR 58.3 mg/dl Normal [facility] Comment on above: Performed By: #### 2 13842 #### [facility],[address] [place] [address] PC RATIO 0.09 mg/dL Normal 0.00 - 10.00 [facility] Comment on above: Performed By: #### 2 73817 #### [facility],[address] [place], [place] [address] Protein (U) [Mass/Vol] mg/dL Normal 0.00 - 10.00 [facility] Comment on above: Performed By: #### 2 15663 #### [facility],[address] [place] [address] 28933 BMP with eGFRon 08-31-2019 Age - Reported 54 years Normal [facility] Comment on above: Performed By: #### 2 92897 #### [facility],[address] [place] [address] 13833 Anion gap [Moles/Vol] 12 mmol/L Normal 10 - 20 [facility] Comment on above: Performed By: #### 2 92234 #### [facility],[address] [place] [address] 10895 Calcium [Mass/Vol] 9.4 mg/dL Normal 8.6 - 10.2 [facility] Comment on above: Performed By: #### 2 87737 #### [facility],[address] [place] [address] 87385 Chloride [Moles/Vol] 104 mmol/L Normal 98 - 107 [facility] Comment on above: Performed By: #### 2 25577 #### [facility],[address] [place] [address] 03852 CO2 [Moles/Vol] 26.9 mmol/L Normal 21.0 - 31.0 [facility] Comment on above: Performed By: #### 2 10297 #### [facility],[address] [place] [address] 91233 Creatinine [Mass/Vol] 2.4 mg/dL High 0.7 - 1.3 [facility] Comment on above: Performed By: #### 2 80342 #### [facility],[address] [place] [address] 52583 GFR/1.73 sq M predicted among non-blacks MDRD (S/P/Bld) [Vol rate/Area] Normal [facility] Comment on above: Result Comment: BASI C METABOLIC PANEL Performed By: #### 2 87974 #### [facility],[address] [place] [address] 91579 GFR/1.73 sq M predicted among non-blacks MDRD (S/P/Bld) [Vol rate/Area] 28 ML/MINUTE Low 60 - 999 [facility] Comment on above: Performed By: #### 2 04411 #### [facility],[address] [place] [address] 55438 GFR/1.73 sq M predicted among non-blacks MDRD (S/P/Bld) [Vol rate/Area] 34 ML/MINUTE Low 60 - 999 [facility] Comment on above: Result Comment: ACCO RDING TO THE NATIONAL KIDNEY DISEASE EDUCATION PROGRAM(NKDE), A NORMAL eGFR IS A VALUE GREATER THAN OR EQUAL TO 60 ML/MIN/1.73 SQ METERS. CHRONIC KIDNEY DISEASE: <60mL/MIN/1.73 SQ METERS KIDNEY FAILURE: <15mL/MIN/1.73 SQ METERS THIS TEST SHOULD ONLY BE USED FOR PATIENTS 18 YEARS OF AGE AND OLDER. Performed By: #### 2 05189 #### [facility],[address] [place] [address] 92350 Glucose [Mass/Vol] 106 mg/dL Normal 74 - 106 [facility] Comment on above: Performed By: #### 2 34455 #### [facility],[address] [place] [address] 85626 Potassium [Moles/Vol] 3.5 mmol/L Normal 3.5 - 5.1 [facility] Comment on above: Performed By: #### 2 61152 #### [facility],[address] [place] [address] 74474 Sodium [Moles/Vol] 139 mmol/L Normal 136 - 145 [facility] Comment on above: Performed By: #### 2 46330 #### [facility],[address] [place] [address] 07157 Urea nitrogen [Mass/Vol] 25 mg/dL High 6 - 20 [facility] Comment on above: Performed By: #### 2 37857 #### [facility],[address] [place], [place] [address] HGB A1C [CCL]on 08-26-2019 HbA1c (Bld) [Mass fraction] 117 mg/dL Normal [facility] Comment on above: Result Comment: eAG: (Estimated average glucose) is a calculated value from HgbA1c and is patient account representative of the average blood glucose level in the last 2-3 month period. [facility] [address] [place] [address] Peyton Lang M.D. [id number] Performed By: #### 2 32842 #### [facility],[address] [place], [place] [address] HbA1c (Bld) [Mass fraction] 5.7 % High 4.3-5.6 [facility] Comment on above: Result Comment: [place] Diabetes Association guidelines indicate that patients with HgbA1c in the range 5.7-6.4% are at increased risk for development of diabetes, and intervention by lifestyle modification may be beneficial. HgbA1c greater or equal to 6.5% is considered diagnostic of diabetes. Performed By: #### 2 35502 #### [facility],[address] [place] [address] 89296 Hemoglobin A1con 08-26-2019 HbA1c (Bld) [Mass fraction] 5.7 % High 4.3-5.6 [facility] Comment on above: Performed By: #### H BA1C #### [facility] Routine Lab [address] [place] [address] HbA1c (Bld) [Mass fraction] 117 mg/dL Normal [facility] Comment on above: Performed By: #### H BA1C #### [facility] Routine Lab [address] [place] [address] RENAL FUNCTION PANELon 08-14 Albumin [Mass/Vol] 3.2 g/dL Low 3.4 - 4.8 [facility] Comment on above: Performed By: #### 2 49506 #### [facility],[address] [place] [address] 10880 B/C RATIO 13 ratio Normal 0 - 30 [facility] Comment on above: Performed By: #### 2 00909 #### [facility],[address] [place] [address] 46629 Calcium [Mass/Vol] 8.8 mg/dL Normal 8.6 - 10.2 [facility] Comment on above: Performed By: #### 2 55943 #### [facility],[address] [place] [address] 64385 Chloride [Moles/Vol] 105 mmol/L Normal 98 - 107 [facility] Comment on above: Performed By: #### 2 24170 #### [facility],[address] [place] [address] 63885 CO2 [Moles/Vol] 29.8 mmol/L Normal 21.0 - 31.0 [facility] Comment on above: Performed By: #### 2 00595 #### [facility],[address] [place] [address] 13985 Creatinine [Mass/Vol] 2.0 mg/dL High 0.7 - 1.3 [facility] Comment on above: Performed By: #### 2 10082 #### [facility],[address] [place] [address] 91346 Glucose [Mass/Vol] 78 mg/dL Normal 74 - 106 [facility] Comment on above: Performed By: #### 2 01448 #### [facility],[address] [place] [address] 09183 Phosphate [Mass/Vol] 4.8 mg/dL Normal 2.7 - 4.9 [facility] Comment on above: Performed By: #### 2 77204 #### [facility],[address] [place] [address] 58757 Potassium [Moles/Vol] 3.9 mmol/L Normal 3.5 - 5.1 [facility] Comment on above: Performed By: #### 2 70658 #### [facility],[address] [place] [address] RENAL FUNCTION PANEL Normal [facility] Comment on above: Result Comment: JESSICA L FUNCTION PANEL Performed By: #### 2 29624 #### [facility],[address] [place] [address] Sodium [Moles/Vol] 141 mmol/L Normal 136 - 145 [facility] Comment on above: Performed By: #### 2 13662 #### [facility],[address] [place] [address] Urea nitrogen [Mass/Vol] 25 mg/dL High 6 - 20 [facility] Comment on above: Performed By: #### 2 75504 #### [facility],[address] [place] [address] CBC (NO DIFF)on 08-06-2019 CBC (NO DIFF) Normal [facility] Comment on above: Result Comment: CBC( WITHOUT DIFFERENTIAL) Performed By: #### 2 44361 #### [facility],[address] [place], [place] [address] Erythrocyte distribution width (RBC) [Ratio] 13.2 % Normal 12.0 - 15.6 [facility] Comment on above: Performed By: #### 2 27118 #### [facility],[address] [place], [place] [address] Hematocrit (Bld) [Volume fraction] 37.7 % Low 40.0 - 52.0 [facility] Comment on above: Performed By: #### 2 67322 #### [facility],[address] [place], [place] [address] Hemoglobin (Bld) [Mass/Vol] 12.9 g/dL Low 13.0 - 17.5 [facility] Comment on above: Performed By: #### 2 39143 #### [facility],[address] [place] [address] 03694 MCH (RBC) [Entitic mass] 32 pg Normal 27 - 33 [facility] Comment on above: Performed By: #### 2 07046 #### [facility],[address] [place] [address] 09652 MCHC (RBC) [Mass/Vol] 34 X10 3 Normal 32 - 36 [facility] Comment on above: Performed By: #### 2 36821 #### [facility],[address] [place] [address] 56681 MCV (RBC) [Entitic vol] 94 fL Normal 81 - 98 [facility] Comment on above: Performed By: #### 2 00107 #### [facility],[address] [place] [address] 96806 Platelet mean volume (Bld) [Entitic vol] 7.3 fL Normal 6.4 - 10.5 [facility] Comment on above: Performed By: #### 2 23766 #### [facility],[address] [place] [address] 99802 Platelets (Bld) [#/Vol] 166 x10EE3/UL Normal 150 - 450 [facility] Comment on above: Performed By: #### 2 35416 #### [facility],[address] [place] [address] 79832 RBC (Bld) [#/Vol] 4.00 x 10EE6/UL Low 4.50 - 6.00 [facility] Comment on above: Performed By: #### 2 12533 #### [facility],[address] [place] [address] 43010 WBC (Bld) [#/Vol] 8.7 x 10EE3/UL Normal 4.5 - 10.8 [facility] Comment on above: Performed By: #### 2 73587 #### [facility],[address] [place] [address] 86356 CULTURE URINEon 08-06-2019 CULTURE URINE CULTURE URINE _URINE CULTURE_ M I C R O B I O L O G Y R E P O R T FINAL ------- Antimicrobial Susceptibility and Organism Identification Report -------- Specimen Number : [id number] Requested : 08/06/19 Specimen Source : CLEAN CATCH URINE Collected : 08/06/19 03:10 [place] : MEME HUANG Received : 08/06/19 03:10 Requesting Physician : FLORECITA -- Patient/Specimen Tests and Comments Specimen Comments -------- -------- FINAL REPORT: NO GROWTH AT 48 HOURS -- Tech : Source : CLEAN CATCH URINE ID # : [id number] FINAL Report Date : / / : Collected : 08/06/19 03:10 08/08/19.1104.BKO. 08/07/19.0711.JLN. 08/08/19.1105.BKO.COMPLETE Normal [facility] Comment on above: Performed By: #### 2 34295 #### [facility],[address] [place] [address] LITHIUMon 08-06-2019 [place] [Moles/Vol] 0.6 mmol/L Normal 0.6 - 1.2 [facility] Comment on above: Performed By: #### 2 19578 #### [facility],[address] [place] [address] MR MRI BRAIN W/O CONTRASTon 08-06-2019 MR MRI BRAIN W/O CONTRAST [place] [address] Patient: REGGIE LEÓN Phone#: : 1965 Age: 54 Gender: M Pt. Type: Out Account: [id number] Location: Ordering: HODA BERNABE Exam Date: 08/06/2019/8:56 Family Phys: Charge Code: [id number] Physician: [place] Order #: [id number] [id number] Dose#: PROCEDURE: MRI BRAIN WITHOUT CONTRAST [...] 9:51 Normal [facility] RENAL FUNCTION PANELon 08-06 Albumin [Mass/Vol] 3.3 g/dL Low 3.4 - 4.8 [facility] Comment on above: Performed By: #### 2 11302 #### [facility],[address] [place], [place] [address] B/C RATIO 11 ratio Normal 0 - 30 [facility] Comment on above: Performed By: #### 2 65033 #### [facility],[address] [place] [address] 97531 Calcium [Mass/Vol] 8.9 mg/dL Normal 8.6 - 10.2 [facility] Comment on above: Performed By: #### 2 09286 #### [facility],[address] [place] [address] 43045 Chloride [Moles/Vol] 107 mmol/L Normal 98 - 107 [facility] Comment on above: Performed By: #### 2 35495 #### [facility],[address] [place] [address] 77138 CO2 [Moles/Vol] 26.8 mmol/L Normal 21.0 - 31.0 [facility] Comment on above: Performed By: #### 2 11297 #### [facility],[address] [place] [address] 29102 Creatinine [Mass/Vol] 2.2 mg/dL High 0.7 - 1.3 [facility] Comment on above: Performed By: #### 2 46856 #### [facility],[address] [place] [address] 07679 Glucose [Mass/Vol] 84 mg/dL Normal 74 - 106 [facility] Comment on above: Performed By: #### 2 50720 #### [facility],[address] [place] [address] 52279 Phosphate [Mass/Vol] 3.9 mg/dL Normal 2.7 - 4.9 [facility] Comment on above: Performed By: #### 2 60066 #### [facility],[address] [place] [address] 45518 Potassium [Moles/Vol] 4.1 mmol/L Normal 3.5 - 5.1 [facility] Comment on above: Performed By: #### 2 09728 #### [facility],[address] [place] [address] 09803 RENAL FUNCTION PANEL Normal [facility] Comment on above: Result Comment: JESSICA L FUNCTION PANEL Performed By: #### 2 27244 #### [facility],[address] [place] [address] 13580 Sodium [Moles/Vol] 141 mmol/L Normal 136 - 145 [facility] Comment on above: Performed By: #### 2 16841 #### [facility],[address] [place] [address] 52077 Urea nitrogen [Mass/Vol] 25 mg/dL High 6 - 20 [facility] Comment on above: Performed By: #### 2 04873 #### [facility],[address] [place] [address] 57124 URINALYSISon 08-06-2019 Bilirubin [Mass/Vol] Negative Normal NORMAL: NEGATIVE [facility] Comment on above: Performed By: #### 2 55946 #### [facility],[address] [place] [address] 96368 Blood Negative Normal NORMAL: NEGATIVE [facility] Comment on above: Performed By: #### 2 80995 #### [facility],[address] [place] [address] 75729 Clarity (U) clear Normal NORMAL: CLEAR [facility] Comment on above: Performed By: #### 2 19429 #### [facility],[address] [place] [address] 31766 Color (U) p.yel Normal NORMAL: YELLOW [facility] Comment on above: Performed By: #### 2 42386 #### [facility],[address] [place] [address] 32784 Glucose [Mass/Vol] NORM Normal NORMAL: NORMAL [facility] Comment on above: Performed By: #### 2 18581 #### [facility],[address] [place] [address] 11179 Ketone Negative Normal NORMAL: NEGATIVE [facility] Comment on above: Performed By: #### 2 [id number] #### [facility],[address] [place] [address] 92204 Microscopic NOT Normal [facility] Comment on above: Performed By: #### 2 [id number] #### [facility],[address] [place] [address] 94536 Nitrite Ql (U) Negative Normal NORMAL: NEGATIVE [facility] Comment on above: Performed By: #### 2 [id number] #### [facility],[address] [place] [address] 75905 pH (Bld) 8 Normal NORMAL: 5.0-8.0 [facility] Comment on above: Performed By: #### 2 [id number] #### [facility],[address] [place] [address] 69027 Protein (U) [Mass/Vol] Negative Normal JENN L: NEGATIVE [facility] Comment on above: Performed By: #### 2 [id number] #### [facility],[address] [place] [address] 54276 Sp [place] 1.010 Normal NORMAL: 1.010-1.03 0 [facility] Comment on above: Performed By: #### 2 85749 #### [facility],[address] [place] [address] 99711 Specimen type Nom (Spec) Clean catch Normal [facility] Comment on above: Performed By: #### 2 76045 #### [facility],[address] [place] [address] 85356 Urobilinog NORM Normal NORMAL: NORMAL [facility] Comment on above: Performed By: #### 2 [id number] #### [facility],[address] [place] [address] 27278 WBC (Bld) [#/Vol] Negative Normal NORMAL: NEGATIVE [facility] Comment on above: Performed By: #### 2 [id number] #### [facility],[address] [place] [address] 97738 URINE CREATININE AND PROTEIN RATIOon 08-06-2019 CREATININE UR 35.5 mg/dl Normal [facility] Comment on above: Performed By: #### 2 65961 #### [facility],[address] [place] [address] 50984 PC RATIO 0.11 mg/dL Normal 0.00 - 10.00 [facility] Comment on above: Performed By: #### 2 67590 #### [facility],[address] [place] [address] 34589 Protein (U) [Mass/Vol] mg/dL Normal 0.00 - 10.00 [facility] Comment on above: Performed By: #### 2 58753 #### [facility],[address] [place] [address] 45808 Ammoniaon 03-19-2019 Ammonia mass conc (P) 34 umol/L Normal 16-60 [facility] Comment on above: Performed By: #### L ITH #### [address] [place] [id number] Basic Metabolic Panelon 05 Anion gap molar conc 13 mmol/L Normal 9-15 [facility] Comment on above: Result Comment: Effe ctive: 12/21/2018 New reference range for this analyte has been established. Performed By: #### L ITH #### [address] [place] [address] Calcium mass conc 8.8 mg/dL Normal 8.5-9.9 Comment on above: Result Comment: Effe ctive: 12/21/2018 New reference range for this analyte has been established. Performed By: #### L ITH #### [address] [place] [address] Chloride molar conc 106 mmol/L Normal 95-107 Comment on above: Result Comment: Effe ctive: 12/21/2018 New reference range for this analyte has been established. Performed By: #### L ITH #### [address] [place] [address] CO2 molar conc 22 mmol/L Normal 20-31 Comment on above: Result Comment: Effe ctive: 12/21/2018 New reference range for this analyte has been established. Performed By: #### L ITH #### [address] [place] [address] Creatinine mass conc 1.78 mg/dL Critically high 0.70-1.20 Comment on above: Performed By: #### L ITH #### [address] [place] [address] GFR/1.73 sq M predicted among blacks MDRD vol rate/area (S/P/Bld) 48.1 mL/min/{1.73_m2} Low >60 Comment on above: Result Comment: >60 mL/min/1.73m2 EGFR, calc. for ages 18 and older using the MDRD formula (not corrected for weight), is valid for stable renal function. Performed By: #### L ITH #### [address] [place] [address] GFR/1.73 sq M.predicted MDRD vol rate/area 39.8 mL/min/{1.73_m2} Low >60 Comment on above: Result Comment: >60 mL/min/1.73m2 EGFR, calc. for ages 18 and older using the MDRD formula (not corrected for weight), is valid for stable renal function. Performed By: #### L ITH #### [address] [place] [address] Glucose mass conc 84 mg/dL Normal 70-99 Comment on above: Result Comment: Effe ctive: 12/21/2018 New reference range for this analyte has been established. Performed By: #### L ITH #### [address] [place] [address] Potassium molar conc 4.4 mmol/L Normal 3.4-4.9 [facility] Comment on above: Result Comment: Effe ctive: 12/21/2018 New reference range for this analyte has been established. Performed By: #### L ITH #### [address] [place] [address] Sodium molar conc 141 mmol/L Normal 135-144 Comment on above: Result Comment: Effe ctive: 12/21/2018 New reference range for this analyte has been established. Performed By: #### L ITH #### [address] [place] [address] Urea nitrogen mass conc 25 mg/dL Critically high 6-20 Comment on above: Performed By: #### L ITH #### [address] [place] [address] Valproic Acid /Depakene Leve rahul 03-19-2019 Protein mass conc 62.5 ug/mL Normal 50.0-100.0 Comment on above: Performed By: #### L ITH #### [address] [place] [address] Basic Metabolic Panelon 05-0 Anion gap molar conc 14 mmol/L Normal 9-15 [facility] Comment on above: Result Comment: Effe ctive: 12/21/2018 New reference range for this analyte has been established. Performed By: #### L ITH #### [address] [place] [address] Calcium mass conc 9.1 mg/dL Normal 8.5-9.9 Comment on above: Result Comment: Effe ctive: 12/21/2018 New reference range for this analyte has been established. Performed By: #### L ITH #### [address] [place] [address] Chloride molar conc 107 mmol/L Normal 95-107 Comment on above: Result Comment: Effe ctive: 12/21/2018 New reference range for this analyte has been established. Performed By: #### L ITH #### [address] [place] [address] CO2 molar conc 22 mmol/L Normal 20-31 Comment on above: Result Comment: Effe ctive: 12/21/2018 New reference range for this analyte has been established. Performed By: #### L ITH #### [address] [place] [address] Creatinine mass conc 2.32 mg/dL Critically high 0.70-1.20 Comment on above: Performed By: #### L ITH #### [address] [place] [address] GFR/1.73 sq M predicted among blacks MDRD vol rate/area (S/P/Bld) 35.4 mL/min/{1.73_m2} Low >60 Comment on above: Result Comment: >60 mL/min/1.73m2 EGFR, calc. for ages 18 and older using the MDRD formula (not corrected for weight), is valid for stable renal function. Performed By: #### L ITH #### [address] [place] [address] GFR/1.73 sq M.predicted MDRD vol rate/area 29.3 mL/min/{1.73_m2} Low >60 Comment on above: Result Comment: >60 mL/min/1.73m2 EGFR, calc. for ages 18 and older using the MDRD formula (not corrected for weight), is valid for stable renal function. Performed By: #### L ITH #### [address] [place] [address] Glucose mass conc 97 mg/dL Normal 70-99 Comment on above: Result Comment: Effe ctive: 12/21/2018 New reference range for this analyte has been established. Performed By: #### L ITH #### [address] [place] [address] Potassium molar conc 4.5 mmol/L Normal 3.4-4.9 [facility] Comment on above: Result Comment: Effe ctive: 12/21/2018 New reference range for this analyte has been established. Performed By: #### L ITH #### [address] [place] [address] Sodium molar conc 143 mmol/L Normal 135-144 Comment on above: Result Comment: Effe ctive: 12/21/2018 New reference range for this analyte has been established. Performed By: #### L ITH #### [address] [place] [address] Urea nitrogen mass conc 29 mg/dL Critically high 6-20 Comment on above: Performed By: #### L ITH #### [address] [place] [address] Basic Metabolic Panelon 05-0 Anion gap molar conc 10 mmol/L Normal 9-15 [facility] Comment on above: Result Comment: Effe ctive: 12/21/2018 New reference range for this analyte has been established. Performed By: #### L ITH #### [address] [place] [address] Calcium mass conc 8.7 mg/dL Normal 8.5-9.9 Comment on above: Result Comment: Effe ctive: 12/21/2018 New reference range for this analyte has been established. Performed By: #### L ITH #### [address] [place] [address] Chloride molar conc 109 mmol/L Critically high 95-107 Comment on above: Result Comment: Effe ctive: 12/21/2018 New reference range for this analyte has been established. Performed By: #### L ITH #### [address] [place] [address] CO2 molar conc 24 mmol/L Normal 20-31 Comment on above: Result Comment: Effe ctive: 12/21/2018 New reference range for this analyte has been established. Performed By: #### L ITH #### [address] [place] [address] Creatinine mass conc 1.77 mg/dL Critically high 0.70-1.20 Comment on above: Performed By: #### L ITH #### [address] [place] [address] GFR/1.73 sq M predicted among blacks MDRD vol rate/area (S/P/Bld) 48.4 mL/min/{1.73_m2} Low >60 Comment on above: Result Comment: >60 mL/min/1.73m2 EGFR, calc. for ages 18 and older using the MDRD formula (not corrected for weight), is valid for stable renal function. Performed By: #### L ITH #### [address] [place] [address] GFR/1.73 sq M.predicted MDRD vol rate/area 40.0 mL/min/{1.73_m2} Low >60 Comment on above: Result Comment: >60 mL/min/1.73m2 EGFR, calc. for ages 18 and older using the MDRD formula (not corrected for weight), is valid for stable renal function. Performed By: #### L ITH #### [address] [place] [address] Glucose mass conc 95 mg/dL Normal 70-99 Comment on above: Result Comment: Effe ctive: 12/21/2018 New reference range for this analyte has been established. Performed By: #### L ITH #### [address] [place] [address] Potassium molar conc 4.8 mmol/L Normal 3.4-4.9 [facility] Comment on above: Result Comment: Effe ctive: 12/21/2018 New reference range for this analyte has been established. Performed By: #### L ITH #### [address] [place] [address] Sodium molar conc 143 mmol/L Normal 135-144 Comment on above: Result Comment: Effe ctive: 12/21/2018 New reference range for this analyte has been established. Performed By: #### L ITH #### [address] [place] [address] Urea nitrogen mass conc 25 mg/dL Critically high 6-20 Comment on above: Performed By: #### L ITH #### [address] [place] [address] Ammoniaon 03-12-2019 Ammonia mass conc (P) 20 umol/L Normal 16-60 [facility] Comment on above: Performed By: #### N H3 #### [address] [place] [address] Basic Metabolic Panelon 04- Anion gap molar conc 14 mmol/L Normal 9-15 [facility] Comment on above: Result Comment: Effe ctive: 12/21/2018 New reference range for this analyte has been established. Performed By: #### L ITH #### [address] [place] [address] Calcium mass conc 9.1 mg/dL Normal 8.5-9.9 Comment on above: Result Comment: Effe ctive: 12/21/2018 New reference range for this analyte has been established. Performed By: #### L ITH #### [address] [place] [address] Chloride molar conc 109 mmol/L Critically high 95-107 Comment on above: Result Comment: Effe ctive: 12/21/2018 New reference range for this analyte has been established. Performed By: #### L ITH #### [address] [place] [address] CO2 molar conc 24 mmol/L Normal 20-31 Comment on above: Result Comment: Effe ctive: 12/21/2018 New reference range for this analyte has been established. Performed By: #### L ITH #### [address] [place] [address] Creatinine mass conc 1.94 mg/dL Critically high 0.70-1.20 Comment on above: Performed By: #### L ITH #### [address] [place] [address] GFR/1.73 sq M predicted among blacks MDRD vol rate/area (S/P/Bld) 43.6 mL/min/{1.73_m2} Low >60 Comment on above: Result Comment: >60 mL/min/1.73m2 EGFR, calc. for ages 18 and older using the MDRD formula (not corrected for weight), is valid for stable renal function. Performed By: #### L ITH #### [address] [place] [address] GFR/1.73 sq M.predicted MDRD vol rate/area 36.0 mL/min/{1.73_m2} Low >60 Comment on above: Result Comment: >60 mL/min/1.73m2 EGFR, calc. for ages 18 and older using the MDRD formula (not corrected for weight), is valid for stable renal function. Performed By: #### L ITH #### [address] [place] [address] Glucose mass conc 90 mg/dL Normal 70-99 Comment on above: Result Comment: Effe ctive: 12/21/2018 New reference range for this analyte has been established. Performed By: #### L ITH #### [address] [place] [address] Potassium molar conc 4.5 mmol/L Normal 3.4-4.9 [facility] Comment on above: Result Comment: Effe ctive: 12/21/2018 New reference range for this analyte has been established. Performed By: #### L ITH #### [address] [place] [address] Sodium molar conc 147 mmol/L Critically high 135-144 [facility] Comment on above: Result Comment: Effe ctive: 12/21/2018 New reference range for this analyte has been established. Performed By: #### L ITH #### [address] [place] [address] Urea nitrogen mass conc 27 mg/dL Critically high 6-20 Comment on above: Performed By: #### L ITH #### [address] [place] [address] [place] Levelon 03-12-2019 [place] molar conc 0.8 mmol/L Normal 0.6-1.2 Comment on above: Performed By: #### L ITH #### [address] [place] [address] Valproic Acid /Depakene Leve rahul 03-12-2019 Protein mass conc 70.6 ug/mL Normal 50.0-100.0 Comment on above: Performed By: #### L ITH #### [address] [place] [address] Basic Metabolic Panelon 02-13 Anion gap molar conc 13 mmol/L Normal 9-15 [facility] Comment on above: Result Comment: Effe ctive: 12/21/2018 New reference range for this analyte has been established. Performed By: #### B MP #### [address] [place] [address] Calcium mass conc 8.9 mg/dL Normal 8.5-9.9 Comment on above: Result Comment: Effe ctive: 12/21/2018 New reference range for this analyte has been established. Performed By: #### B MP #### [address] [place] [address] Chloride molar conc 108 mmol/L Critically high 95-107 Comment on above: Result Comment: Effe ctive: 12/21/2018 New reference range for this analyte has been established. Performed By: #### B MP #### [address] [place] [address] CO2 molar conc 23 mmol/L Normal 20-31 Comment on above: Result Comment: Effe ctive: 12/21/2018 New reference range for this analyte has been established. Performed By: #### B MP #### [address] [place] [address] Creatinine mass conc 1.82 mg/dL Critically high 0.70-1.20 Comment on above: Performed By: #### B MP #### [address] [place] [address] GFR/1.73 sq M predicted among blacks MDRD vol rate/area (S/P/Bld) 46.9 mL/min/{1.73_m2} Low >60 Comment on above: Result Comment: >60 mL/min/1.73m2 EGFR, calc. for ages 18 and older using the MDRD formula (not corrected for weight), is valid for stable renal function. Performed By: #### B MP #### [address] [place] [address] GFR/1.73 sq M.predicted MDRD vol rate/area 38.8 mL/min/{1.73_m2} Low >60 Comment on above: Result Comment: >60 mL/min/1.73m2 EGFR, calc. for ages 18 and older using the MDRD formula (not corrected for weight), is valid for stable renal function. Performed By: #### B MP #### [address] [place] [address] Glucose mass conc 82 mg/dL Normal 70-99 Comment on above: Result Comment: Effe ctive: 12/21/2018 New reference range for this analyte has been established. Performed By: #### B MP #### [address] [place] [address] Potassium molar conc 4.2 mmol/L Normal 3.4-4.9 [facility] Comment on above: Result Comment: Effe ctive: 12/21/2018 New reference range for this analyte has been established. Performed By: #### B MP #### [address] [place] [address] Sodium molar conc 144 mmol/L Normal 135-144 Comment on above: Result Comment: Effe ctive: 12/21/2018 New reference range for this analyte has been established. Performed By: #### B MP #### [address] [place] [address] Urea nitrogen mass conc 28 mg/dL Critically high 6-20 Comment on above: Performed By: #### B MP #### [address] [place] [address] Lipid Panelon 03-09-2019 Cholesterol in HDL mass conc 30 mg/dL Low 40-59 Comment on above: Result Comment: ATP III [...] CHD Performed By: #### L IPID #### [address] [place] [address] Cholesterol in LDL mass conc 83 mg/dL Normal 0-129 Comment on above: Result Comment: ATP III LDL Classification is Optimal. Performed By: #### L IPID #### [address] [place] [address] Cholesterol mass conc 160 mg/dL Normal 0-199 [facility] Comment on above: Result Comment: ATP III Cholesterol classification is Desirable. Performed By: #### L IPID #### [address] [place] [address] Triglyceride mass conc 234 mg/dL Critically high 0-150 Comment on above: Result Comment: ATP III Triglycerides Classification is High. Effective: 12/21/2018 New reference range for this analyte has been established. Performed By: #### L IPID #### [address] [place] [address] Ammoniaon 03-04-2019 Ammonia mass conc (P) 35 umol/L Normal 16-60 [facility] Comment on above: Performed By: #### N H3 #### [address] [place] [address] [place] Levelon 03-04-2019 [place] molar conc 0.7 mmol/L Normal 0.6-1.2 Comment on above: Performed By: #### L ITH #### [address] [place] [address] TSH w/out Reflexon 201 9 Thyrotropin Qn 2.880 uIU/mL Normal 0.440-3.86 Comment on above: Result Comment: Effe ctive: 12/21/2018 New reference range for this analyte has been established. Performed By: #### T SH #### [address] [place] [address] VITAMIN Don 03-04-2019 VITAMIN D 33.1 ng/mL Normal 30.0-100.0 Comment on above: Result Comment: (30- 100 ng/mL) Optimum Level This assay accurately quantifies the sum of vitamin D3, 25-Hydroxy and vitamin D2, 25-Hyroxy. Performed By: #### V ITD #### [address] [place] [address] Valproic Acid /Depakene Leve rahul 03-04-2019 Protein mass conc 25.8 ug/mL Low 50.0-100.0 Comment on above: Performed By: #### V ALPR #### [address] [place] [address] Vitamin B12 and Folateon Cobalamin (Vitamin B12) mass conc 340 pg/mL Normal 232-1245 Comment on above: Performed By: #### B 12FO #### [address] [place] [address] Folate 10.2 ng/mL Normal 7.3-26.1 Comment on above: Result Comment: As o f 16, the methodology has changed. Results from this methodology should not be compared with results from previous methodology. Performed By: #### B 12FO #### [address] [place] [address] Creatinineon 06-06-2018 Creatinine 1.93 mg/dL High 0.58-0.96 [facility] Comment on above: Performed By: #### C RET1, TSH, LI ####[facility] [id number] [place], [place] [phone] eGFR (non-black) 27 . Normal [facility] Comment on above: Performed By: #### C RET1, TSH, LI ####[facility] [id number] [place], [place] [phone] eGFR- Amer. 33 Normal [facility] Comment on above: Performed By: #### C RET1, TSH, LI ####[facility] [id number] [place], [place] [phone] Lithiumon 06-06-2018 [place] 0.8 mmol/L Normal 0.6-1.2 [facility] Comment on above: Performed By: #### C RET1, TSH, LI ####[facility] [id number] [place], [place] [phone] TSHon 06-06-2018 Thyroid stimulating hormone (TSH) 2.350 uU/mL Normal 0.400-5.50 0 [facility] Comment on above: Performed By: #### C RET1, TSH, LI ####[facility] [id number] [place], [place] [phone] Culture, urine Bacteria identified Cx Nom (U) Culture exhibits no growth. [facility] Work Phone: Bacteria identified Cx Nom (U) Positive [facility] Work Phone: Bacteria identified Cx Nom (U) Actinomyces turicensis [facility] Work Phone: Bacteria identified Cx Nom (U) Streptococcus mitis [facility] Work Phone: Vital Signs Date Time Vital Sign Value Performing Clinician Facility 02-26-2025 11:40-0400 Diastolic blood pressure 76 mm[Hg] [facility] Work Phone: [facility] 02-26-2025 11:40-0400 Heart rate 75 /min [facility] Work Phone: [facility] 02-26-2025 11:40-0400 Respiratory rate 18 /min [facility] Work Phone: [facility] 02-26-2025 11:40-0400 SaO2% (BldA) [Mass fraction] 96 % [facility] Work Phone: [facility] 02-26-2025 11:40-0400 Systolic blood pressure 122 mm[Hg] [facility] Work Phone: [facility] 02-26-2025 09:00-0400 Body temperature 98.6 [degF] [facility] Work Phone: [facility] 02-12-2025 14:04-0400 Diastolic blood pressure 55 mm[Hg] [facility] Work Phone: [facility] 02-12-2025 14:04-0400 Heart rate 78 /min [facility] Work Phone: [facility] 02-12-2025 14:04-0400 Respiratory rate 18 /min [facility] Work Phone: [facility] 02-12-2025 14:04-0400 SaO2% (BldA) [Mass fraction] 95 % [facility] Work Phone: [facility] 02-12-2025 14:04-0400 Systolic blood pressure 128 mm[Hg] [facility] Work Phone: [facility] 02-12-2025 09:00-0400 Body temperature 98.6 [degF] [facility] Work Phone: [facility] 09-14-2024 08:49-0400 Body height 176.3 cm Dorota Smith MD Work Phone: [facility] 09-14-2024 08:49-0400 Body mass index (BMI) [Ratio] 39.27 kg/m2 Dorota Smith MD Work Phone: [facility] 09-14-2024 08:49-0400 Body temperature 97.3 [degF] Dorota Smiht MD Work Phone: [facility] 09-14-2024 08:49-0400 Body weight 122.05 kg Dorota Smith MD Work Phone: [facility] 09-14-2024 08:49-0400 Diastolic blood pressure 65 mm[Hg] Dorota Smith MD Work Phone: [facility] 09-14-2024 08:49-0400 Heart rate 106 /min Dorota Smith MD Work Phone: [facility] 09-14-2024 08:49-0400 Respiratory rate 14 /min Dorota Smith MD Work Phone: [facility] 09-14-2024 08:49-0400 Systolic blood pressure 104 mm[Hg] Dorota Smith MD Work Phone: [facility] 08-09-2024 10:45-0400 Diastolic blood pressure 68 mm[Hg] [facility] Work Phone: [facility] 08-09-2024 10:45-0400 Heart rate 82 /min [facility] Work Phone: [facility] 08-09-2024 10:45-0400 Respiratory rate 18 /min [facility] Work Phone: [facility] 08-09-2024 10:45-0400 SaO2% (BldA) [Mass fraction] 96 % [facility] Work Phone: [facility] 08-09-2024 10:45-0400 Systolic blood pressure 125 mm[Hg] [facility] Work Phone: [facility] 08-09-2024 07:00-0400 Body temperature 98.4 [degF] [facility] Work Phone: [facility] 07-17-2024 11:09-0400 Body height 182.9 cm Anthony Olivares MD Work Phone: [facility] 07-17-2024 11:09-0400 Body mass index (BMI) [Ratio] 36.48 kg/m2 Anthony Olivares MD Work Phone: [facility] 07-17-2024 11:09-0400 Body weight 122 kg Anthony Olivares MD Work Phone: [facility] 07-17-2024 11:09-0400 Diastolic blood pressure 73 mm[Hg] Anthony Olivares MD Work Phone: [facility] 07-17-2024 11:09-0400 Heart rate 90 /min Anthony Olivares MD Work Phone: [facility] 07-17-2024 11:09-0400 Systolic blood pressure 106 mm[Hg] Anthony Olivares MD Work Phone: [facility] 01-26-2024 12:00-0400 Diastolic blood pressure 62 mm[Hg] Chair Hosp Work Phone: [facility] 01-26-2024 12:00-0400 Heart rate 97 /min Chair [facility] Work Phone: [facility] 01-26-2024 12:00-0400 Respiratory rate 18 /min Chair [facility] Work Phone: [facility] 01-26-2024 12:00-0400 SaO2% (BldA) [Mass fraction] 96 % Chair [facility] Work Phone: [facility] 01-26-2024 12:00-0400 Systolic blood pressure 110 mm[Hg] Chair Hosp Work Phone: [facility] 01-26-2024 07:05-0400 Body temperature 98.6 [degF] Chair Hosp Work Phone: [facility] 12-20-2023 09:51-0500 Body height 177.8 cm Anthony Olivares MD Work Phone: [facility] 12-20-2023 09:51-0500 Body temperature 97.7 [degF] Anthony Olivares MD Work Phone: [facility] 12-20-2023 09:51-0500 Body weight 126.4 kg Anthony Olivares MD Work Phone: [facility] 12-20-2023 09:51-0500 Diastolic blood pressure 68 mm[Hg] Anthony Olivares MD Work Phone: [facility] 12-20-2023 09:51-0500 Heart rate 116 /min Anthony Olivares MD Work Phone: [facility] 12-20-2023 09:51-0500 Systolic blood pressure 97 mm[Hg] Anthony Olivares MD Work Phone: [facility] 02-25-2023 11:04-0400 Body height 171.5 cm Luz Daniel MD Work Phone: [facility] 02-25-2023 11:04-0400 Body temperature 97.9 [degF] Luz Daniel MD Work Phone: [facility] 02-25-2023 11:04-0400 Body weight 146.69 kg Luz Daniel MD Work Phone: [facility] 02-25-2023 11:04-0400 Diastolic blood pressure 86 mm[Hg] Luz Daniel MD Work Phone: [facility] 02-25-2023 11:04-0400 Heart rate 93 /min Luz Daniel MD Work Phone: [facility] 02-25-2023 11:04-0400 Systolic blood pressure 125 mm[Hg] Luz Daniel MD Work Phone: [facility] 11-03-2022 13:05-0500 Body temperature 97.2 [degF] Guki 2 Work Phone: [facility] 11-03-2022 13:05-0500 Diastolic blood pressure 78 mm[Hg] [place]i 2 Work Phone: [facility] 11-03-2022 13:05-0500 Heart rate 89 /min Dougl[place]i 2 Work Phone: [facility] 11-03-2022 13:05-0500 Respiratory rate 18 /min [place]i 2 Work Phone: [facility] 11-03-2022 13:05-0500 SaO2% (BldA) [Mass fraction] 95 % [place]i 2 Work Phone: [facility] 11-03-2022 13:05-0500 Systolic blood pressure 124 mm[Hg] [place]i 2 Work Phone: [facility] 11-03-2022 07:52-0500 Body weight 144.74 kg Dougl[place]i 2 Work Phone: [facility] 08-27-2022 10:46-0400 Body height 171.5 cm Luz Daniel MD Work Phone: [facility] 08-27-2022 10:46-0400 Body temperature 98.29 [degF] Luz Daniel MD Work Phone: [facility] 08-27-2022 10:46-0400 Body weight 146.06 kg Luz Daniel MD Work Phone: [facility] 08-27-2022 10:46-0400 Diastolic blood pressure 95 mm[Hg] Luz Daniel MD Work Phone: [facility] 08-27-2022 10:46-0400 Heart rate 109 /min Luz Daniel MD Work Phone: [facility] 08-27-2022 10:46-0400 Systolic blood pressure 132 mm[Hg] Luz Daniel MD Work Phone: [facility] 07-27-2022 15:53-0400 Body height 176.5 cm Anthony Olivares MD Work Phone: [facility] 07-27-2022 15:53-0400 Body weight 142.88 kg Anthony Olivares MD Work Phone: [facility] 07-27-2022 15:53-0400 Diastolic blood pressure 85 mm[Hg] Anthony Olivares MD Work Phone: [facility] 07-27-2022 15:53-0400 Heart rate 94 /min Anthony Olivares MD Work Phone: [facility] 07-27-2022 15:53-0400 Systolic blood pressure 128 mm[Hg] Anthony Olivares MD Work Phone: [facility] 05-05-2022 13:15-0400 Body temperature 97.2 [degF] Kidney 1 [facility] 05-05-2022 13:15-0400 Diastolic blood pressure 91 mm[Hg] Kidney 1 [facility] 05-05-2022 13:15-0400 Heart rate 116 /min Kidney 1 [facility] 05-05-2022 13:15-0400 Systolic blood pressure 157 mm[Hg] Kidney 1 [facility] 05-05-2022 07:40-0400 SaO2% (BldA) [Mass fraction] 95 % Kidney 1 [facility] 05-05-2022 07:36-0400 Body weight 140.57 kg Kidney 1 [facility] 11-04-2020 15:52-0500 Body Temperature 97.2 [degF] [place] 11-04-2020 15:52-0500 BP Diastolic 74 mm[Hg] [facility] [place] [facility] 11-04-2020 15:52-0500 BP Systolic 113 mm[Hg] [facility] [place] , [facility] 11-04-2020 15:52-0500 Pulse (Heart Rate) 92 /min [facility] [place] [place] 11-04-2020 15:52-0500 Pulse Oximetry 96 % [facility] [place] [facility] 11-04-2020 15:52-0500 Respiratory Rate 17 /min [facility] 11-04-2020 05:31-0500 Body weight 114.31 kg Otf [place], [place] Encounters Encounter Date Encounter Type Care Provider Facility Start: 08-02-2025 ambulatory Adam Ferraro OLS Fac ility:[facility] Start: 07-29-2025 ambulatory Alfredo Lexiiros OLS Faci lity:[facility] Start: 07-02-2025 ambulatory Lasha Dixonyuko laith OLS Facility:[facility] Start: 07-01-2025 ambulatory Adam Wandaning OLS Fac ility:[facility] Start: 06-27-2025 ambulatory Adam Muñozning OLS Fac ility:[facility] Start: 06-20-2025 ambulatory Alfredo Shultzsaros OLS Faci lity:[facility] Start: 06-19-2025 ambulatory Alfredo Wayros OLS Faci lity:[facility] Start: 06-06-2025 End: 06-06-2025 ambulatory Julieta uLo RN [facility]ney [facility] Start: 06-05-2025 ambulatory Adam Gunning OLS Fac ility:[facility] Start: 05-28-2025 ambulatory Adam Wandaning OLS Fac ility:[facility] Start: 05-26-2025 ambulatory Adam Wandaning OLS Fac ility:[facility] Start: 05-24-2025 ambulatory Adam Gunning OLS Fac ility:[facility] Start: 05-23-2025 End: 05-23-2025 Telemedicine consultation with patient Anthony Olivares MD Work Phone: [facility] Start: 05-23-2025 End: 05-27-2025 ambulatory Anthony Olivares MD Work Phone: [facility] [place] Comment on above: 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 Elgin Bal MD Work Phone: -[place] [facility] Start: 04-01-2025 End: 04-01-2025 Departed Referred Adam Jasmine -[place] [facility] Start: 04-01-2025 End: 04-01-2025 ambulatory Adam CHANDLER Facility:[facility] Start: 03-27-2025 ambulatory [facility] Facility:[facility] Start: 03-27-2025 Registered Referred Alfredo Phipps - [place] [facility] Start: 03-04-2025 End: 03-04-[address] Elgin Bal MD Work Phone: [facility] Work Phone: Start: 03-04-2025 End: 03-04-2025 Departed Referred Adam Jasmine -[place] [facility] Start: 03-04-2025 Registered Referred Adam Ferraro -[place] [facility] Start: 03-04-2025 End: 03-04-2025 ambulatory Adam Muñozmele RAMESH Facility:[facility] Start: 02-27-2025 End: 02-27-[address] Elgin Bal MD Work Phone: [facility] Work Phone: Start: 02-27-2025 End: 02-27-2025 Departed Referred Alfredo Phipps -[place] [facility] Start: 02-27-2025 Registered Referred Alfredo Phipps - [place] [facility] Start: 02-26-2025 End: 02-27-2025 ambulatory ANTHONY OLIVARES Facility:[facility] Start: 02-26-2025 End: 02-26-2025 Subsequent hospital visit by physician Chair [facility] Work Phone: [facility] Start: 02-25-2025 End: 02-25-[address] Elgin Bal MD Work Phone: [facility] Work Phone: Start: 02-25-2025 End: 02-25-2025 [place]ed [place] [facility] Start: 02-25-2025 Registered Referred Adam Ferraro -[place] [facility] Start: 02-25-2025 End: 02-25-2025 ambulatory Adam Wandamele CHANDLER Facility:[facility] Start: 02-12-2025 ambulatory ANTHONY OLIVARES Facility: [facility] Start: 02-12-2025 End: 02-12-2025 Subsequent hospital visit by physician Chair [facility] Work Phone: [facility] Start: 02-11-2025 End: 02-11-[address] Elgin Bal MD Work Phone: [facility] Work Phone: Start: 02-11-2025 End: 02-11-2025 Departed Referred Alfredo Robertouary [facility] Start: 02-11-2025 Registered Referred Alfredo Gutierrezuary [facility] Start: 02-11-2025 End: 02-11-2025 ambulatory Alfredo CHANDLER Facility:[facility] Start: 02-06-2025 End: 02-06-[address] Elgin Bal MD Work Phone: [facility] Work Phone: Start: 02-06-2025 End: 02-06-2025 Departed Referred Alfredo Robertouary [facility] Start: 02-06-2025 Registered Referred Alfredo Phipps - [place] [facility] Start: 02-06-2025 End: 02-06-2025 ambulatory Alfredo Phipps RAMESH Facility:[facility] Start: 01-30-2025 End: 01-30-2025 Departed Referred Adam Ferraro -[place] [facility] Start: 01-30-2025 End: 01-30-2025 Orders Only Anthony Olivares MD Work Phone: [facility] Start: 01-30-2025 Registered Referred Adam Ferraro -[place] [facility] Start: 01-30-2025 End: 01-30-2025 ambulatory Adam CHANDLER Facility:[facility] Start: 01-25-2025 End: 01-25-[address] Elgin Bal MD Work Phone: [facility] Work Phone: Start: 01-25-2025 End: 01-25-2025 Departed Referred Adam Ferraro -[place] [facility] Start: 01-25-2025 End: 01-25-2025 ambulatory Adam CHANDLER Facility:[facility] Start: 01-03-2025 End: 01-03-[address] Elgin Bal MD Work Phone: [facility] Work Phone: Start: 01-03-2025 End: 01-03-2025 Departed Referred Adam Ferraro -[place] [facility] Start: 01-03-2025 Registered Referred Adam Ferraro -[place] [facility] Start: 01-02-2025 End: 01-03-[address] Elgin Bal MD Work Phone: [facility] Work Phone: Start: 01-02-2025 End: 01-02-2025 Departed Referred Adam Ferraro -[place] [facility] Start: 01-02-2025 Registered Referred Adam Ferraro -[place] [facility] Start: 01-02-2025 End: 01-02-2025 ambulatory Adam Wandamele CHANDLER Facility:[facility] Start: 12-28-2024 End: 12-28-[address] Elgin Bal MD Work Phone: [facility] Work Phone: Start: 12-28-2024 End: 12-28-2024 Departed Referred Adam Ferraro -[place] [facility] Start: 12-28-2024 End: 12-28-2024 ambulatory Adam CHANDLER Facility:[facility] Start: 11-27-2024 End: 11-27-2024 Departed Referred Adam Ferraro -[place] [facility] Start: 11-27-2024 End: 11-27-2024 ambulatory Adam CHANDLER Facility:[facility] Start: 11-20-2024 End: 11-23-2024 ambulatory Anthony Olivares MD Work Phone: [facility] Start: 11-15-2024 End: 11-15-2024 Departed Referred Adam Ferraro -[place] [facility] Start: 11-15-2024 End: 11-15-2024 ambulatory [facility] Facility:[facility] Start: 09-27-2024 End: 09-27-2024 Departed Referred Adam Ferraro [place] [facility] Start: 09-27-2024 End: 09-27-2024 ambulatory [facility] Facility:[facility] Start: 09-14-2024 End: 09-14-2024 Patient encounter procedure Dorota Smith MD Work Phone: [facility]ology [facility] Arth[facility] Comment on above: 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); Rash and nonspecific skin eruption; 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) Start: 09-14-2024 End: 09-14-2024 ambulatory ALFREDO PHIPPS Facility:[facility] Start: 09-12-2024 End: 09-12-2024 ambulatory [facility] Facility:[facility] Start: 08-27-2024 End: 08-27-2024 ambulatory [facility] Facility:[facility] Start: 08-10-2024 ambulatory Alfredo CHANDLER Faci lity:[facility] Start: 08-09-2024 ambulatory ANTHONY OLIVARES Facility: [facility] Start: 08-09-2024 End: 08-09-2024 Subsequent hospital visit by physician Chair [facility] Work Phone: Infusion Center Comment on above: Rituximab Start: 07-17-2024 End: 07-17-2024 Patient encounter procedure Anthony Olivares MD Work Phone: [facility] [place] Comment on above: 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); Stage 3b chronic kidney disease (HCC); Benign hypertension with chronic kidney disease Start: 07-17-2024 End: 07-20-2024 ambulatory Anthony Olivares MD Work Phone: Kidney [facility] Start: 05-21-2024 Telephone encounter Dorota hameed MD Work Phone: [facility] Rheumatology [facility] Arthritis Comment on [...] kidney disease Start: 02-03-2024 End: 02-03-2024 ambulatory [facility] Work Phone: Start: 02-03-2024 End: 02-03-2024 Departed Referred [facility] [employer] Start: 01-26-2024 End: 01-26-2024 Subsequent hospital visit by physician Chair [facility] Work Phone: Infusion Center Comment on above: Rituximab Start: 01-06-2024 End: 01-06-2024 ambulatory [facility] Work Phone: Start: 01-06-2024 End: 01-06-2024 Departed Referred [facility] [employer] Start: 12-29-2023 Orders Only Babak Drummond RN [facility] Start: 12-27-2023 Orders Only Anthony Olivares MD Work Phone: Kidney [facility] Start: 12-23-2023 Telephone encounter Nuria noyola RN Kidney Medicine Comment on above: Appointment Start: 12-20-2023 ambulatory Anthony Olivares MD Work Phone: Kidney [facility] Start: 12-20-2023 End: 12-20-2023 Patient encounter procedure Anthony Olivares MD Work Phone: Kidney [facility] Comment on above: 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); Stage 3b chronic kidney disease (HCC); Benign hypertension with chronic kidney disease Start: 12-09-2023 End: 12-09-2023 ambulatory [facility] Work Phone: Start: 12-09-2023 End: 12-09-2023 [facility] Start: 11-16-2023 End: 11-16-2023 Departed Referred [facility] Start: 11-16-2023 [facility] Start: 11-11-2023 End: 11-11-2023 ambulatory [facility] Work Phone: Start: 11-11-2023 End: 11-11-2023 Departed Referred [facility] Start: 11-11-2023 Registered Referred [facility] Start: 10-27-2023 End: 10-27-2023 ambulatory [facility] Work Phone: Start: 10-27-2023 End: 10-27-2023 Departed Referred [facility] Start: 10-14-2023 End: 10-14-2023 ambulatory [facility] Work Phone: Start: 10-14-2023 End: 10-14-2023 [facility] Start: 09-27-2023 End: 09-27-2023 ambulatory [facility] Work Phone: Start: 09-27-2023 End: 09-27-2023 [facility] Start: 09-27-2023 [facility] Start: 09-16-2023 End: 09-16-2023 ambulatory [facility] Work Phone: Start: 09-16-2023 End: 09-16-2023 [facility] Start: 08-29-2023 Telephone encounter Dorota hameed MD Work Phone: [facility] Rheumatology [facility] Arthritis Comment on above: Patient Update Start: 08-26-2023 Telephone encounter Luz Daniel MD Work Phone: [facility] Ar[facility]ritis [facility] Rhe[facility] [place] Comment on above: NO SHOW Start: 08-19-2023 End: 08-19-2023 ambulatory [facility] Work Phone: Start: 08-19-2023 End: 08-19-2023 [facility] Start: 07-28-2023 End: 07-28-2023 [facility] Start: 07-28-2023 [facility] Start: 07-24-2023 Reg[facility] Start: 07-22-2023 End: 07-22-2023 ambulatory [facility] Work Phone: Start: 07-22-2023 End: 07-22-2023 [facility] Start: 06-24-2023 End: 06-24-2023 ambulatory [facility] Work Phone: Start: 06-24-2023 End: 06-24-2023 Departed Referred [facility] Start: 06-24-2023 Registered Referred [facility] Start: 05-30-2023 End: 05-30-2023 ambulatory [facility] Work Phone: Start: 05-30-2023 End: 05-30-2023 [facility] Start: 05-30-2023 [facility] Start: 05-27-2023 End: 05-27-2023 ambulatory [facility] Work Phone: Start: 05-27-2023 End: 05-27-2023 [facility] Start: 05-27-2023 [facility] Start: 05-19-2023 End: 05-19-2023 ambulatory [facility] Work Phone: Start: 05-19-2023 End: 05-19-2023 [facility] Start: 05-19-2023 [facility] Start: 04-29-2023 End: 04-29-2023 ambulatory [facility] Work Phone: Start: 04-29-2023 End: 04-29-2023 [facility] Start: 04-29-2023 [facility] Start: 04-27-2023 End: 04-27-2023 ambulatory [facility] Work Phone: Start: 04-27-2023 End: 04-27-2023 [facility] Start: 04-04-2023 End: 04-04-2023 [facility] Start: 04-01-2023 End: 04-01-2023 [facility] Start: 03-04-2023 End: 03-04-2023 ambulatory [facility] Work Phone: Start: 03-04-2023 End: 03-04-2023 [facility] Start: 02-25-2023 End: 02-25-2023 Patient encounter procedure Luz Daniel MD Work Phone: [facility] Arthritis and Rheumatology [place] Comment on above: Rheumatoid arthritis involving both hands 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 rheumatoid factor (HCC) (Primary Dx); 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) Start: 02-25-2023 End: 02-25-2023 ambulatory [facility] Work Phone: Start: 02-25-2023 End: 02-25-2023 [facility] Start: 02-04-2023 End: 02-04-2023 ambulatory [facility] Work Phone: Start: 02-04-2023 End: 02-04-2023 [facility] Start: 02-04-2023 [facility] Start: 01-25-2023 End: 01-25-2023 ambulatory [facility] Work Phone: Start: 01-25-2023 End: 01-25-2023 [facility] Start: 01-25-2023 [facility] Start: 01-19-2023 End: 01-19-2023 [facility] Start: 01-19-2023 [facility] Start: 01-07-2023 End: 01-07-2023 ambulatory [facility] Work Phone: Start: 01-07-2023 End: 01-07-2023 [facility] Start: 01-07-2023 [facility] Start: 12-28-2022 End: 12-28-2022 ambulatory [facility] Work Phone: Start: 12-28-2022 End: 12-28-2022 [facility] Start: 12-28-2022 [facility] Start: 12-15-2022 End: 12-15-2022 [facility] Start: 12-15-2022 [facility] Start: 12-10-2022 End: 12-10-2022 ambulatory [facility] Work Phone: Start: 12-10-2022 End: 12-10-2022 [facility] Start: 11-17-2022 End: 11-17-2022 ambulatory [facility] Work Phone: Start: 11-17-2022 End: 11-17-2022 [facility] Start: 11-17-2022 Reg[facility] Start: 11-12-2022 End: 11-12-2022 [facility] Start: 11-12-2022 [facility] Start: 11-03-2022 End: 11-03-2022 Patient encounter procedure [facility] Chair 1 Kidney Medicine Comment on above: 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) Start: 11-02-2022 Orders Only Adam Tee MD Work Phone: [facility] [place] Comment on above: 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) Start: 10-27-2022 End: 10-27-2022 ambulatory [facility] Work Phone: Start: 10-27-2022 End: 10-27-2022 [facility] Start: 10-27-2022 Registered [facility] Start: 10-15-2022 End: 10-15-2022 [facility] Start: 10-15-2022 Registered [facility] Start: 09-27-2022 End: 09-27-2022 ambulatory [facility] Work Phone: Start: 09-27-2022 End: 09-27-2022 Departed Referred [facility] Start: 09-27-2022 Registered [facility] Start: 09-17-2022 End: 09-17-2022 ambulatory [facility] Work Phone: Start: 09-17-2022 End: 09-17-2022 Departed Referred [facility] Start: 09-17-2022 Registered [facility] Start: 08-27-2022 End: 08-27-2022 Patient encounter procedure Luz Daniel MD Work Phone: [facility] [place] Comment on above: Rheumatoid arthritis involving both hands 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 rheumatoid factor (HCC) (Primary Dx) Start: 08-27-2022 End: 08-27-2022 Departed Referred [facility] Start: 08-27-2022 Registered [facility] Start: 08-23-2022 End: 08-23-2022 ambulatory [facility] Work Phone: Start: 08-23-2022 End: 08-23-2022 [facility]ed [facility] Start: 08-23-2022 Registered [facility] Start: 08-12-2022 End: 08-12-2022 ambulatory [facility] Work Phone: Start: 08-12-2022 End: 08-12-2022 [facility]ed [facility] Start: 07-28-2022 End: 07-28-2022 ambulatory [facility] Work Phone: Start: 07-28-2022 End: 07-28-2022 [facility]ed [facility] Start: 07-28-2022 Registered [facility] Start: 07-27-2022 End: 07-27-2022 Patient encounter procedure Anthony Olivares MD Work Phone: [facility] Comment on above: 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); Stage 3a chronic kidney disease (HCC) Start: 07-27-2022 ambulatory Anthony Olivares MD Work Phone: [facility] Start: 07-15-2022 End: 07-15-2022 ambulatory [facility] Work Phone: Start: 07-15-2022 End: 07-15-2022 [facility]ed [facility] Start: 07-15-2022 [facility] Start: 06-28-2022 End: 06-28-2022 ambulatory [facility] Work Phone: Start: 06-28-2022 End: 06-28-2022 [facility]ed [facility] Start: 06-28-2022 [facility] Start: 06-17-2022 End: 06-17-2022 ambulatory [facility] Work Phone: Start: 06-17-2022 End: 06-17-2022 [facility]ed [facility] Start: 05-27-2022 End: 05-27-2022 Departed [facility] Start: 05-20-2022 End: 05-20-2022 Departed Referred [facility] Start: 05-05-2022 Patient encounter procedure Anthony Olivares MD Work Phone: [facility] [place] Comment on above: Granulomatosis with polyangiitis with [...] 04-27-2022 Departed Referred [facility] Start: 04-27-2022 Registered Referred [facility] Start: 04-22-2022 End: 04-22-2022 Departed Referred [facility] Start: 04-22-2022 Registered Referred [facility] Start: 04-21-2022 End: 04-21-2022 Departed Referred [facility] Start: 04-21-2022 Registered Referred [facility] Start: 04-06-2022 End: 04-06-2022 Departed Referred [facility] Start: 04-06-2022 Registered Referred [facility] Start: 04-05-2022 End: 04-05-2022 Departed Referred [facility] Start: 04-05-2022 Registered Referred [facility] Start: 04-02-2022 End: 04-02-2022 [facility]arted [facility] Start: 04-02-2022 [facility] Start: 03-30-2022 Orders Only Anthony Olivares MD Work Phone: Kidney [facility] Comment on above: Granulomatosis with polyangiitis, unspecified whether renal involvement (HCC) (Primary Dx) Start: 03-25-2022 End: 03-25-2022 [facility]ed [facility] Start: 03-25-2022 [facility] Start: 03-19-2022 End: 03-19-2022 [facility]arted [facility] Start: 03-19-2022 [facility] Start: 02-25-2022 End: 02-25-2022 [facility]arted [facility] Start: 02-25-2022 [facility] Start: 02-18-2022 End: 02-18-2022 [facility]arted [facility] Start: 01-28-2022 End: 01-28-2022 [facility] Start: 01-28-2022 [facility] Start: 01-25-2022 End: 01-25-2022 [facility] Start: 01-25-2022 [facility] Start: 01-04-2022 End: 01-04-2022 [facility] Start: 01-04-2022 [facility] Start: 12-07-2021 End: 12-07-2021 Departed [facility] Start: 12-03-2021 [facility] Start: 11-09-2021 Registered Referred [facility] Start: 11-05-2021 Registered Referred [place] Start: 10-28-2020 End: 11-04-2020 Evaluation and management of inpatient [place] Work Phone: [facility] [employer] Comment on above: Pneumonia due to COV ID-19 virus (Primary Dx); Hypoxia; Hypokalemia; Stage 3 chronic kidney disease, unspecified whether stage 3a or 3b CKD Start: 11-14-2019 Encounter for genera l adult medical examination without abnormal findings [facility] Start: 11-14-2019 End: 08-05-2020 Patient encounter procedure HODA BROWNING [facility] Start: 08-06-2019 End: 08-06-2019 Patient encounter procedure HODA BROWNING [facility] Start: 10-21-2009 End: 01-29-2013 Patient encounter status Ronny Polanco MD Work Phone: [facility] Encounter for genera l adult medical examination without abnormal findings [facility] Procedures Date Procedure Procedure Detail Performing Clinician Start: 05-02-[address] Elgin Bal MD Work Phone: Start: 04-24-[address] Elgin Bal MD Work Phone: Start: 04-24-2025 Serum inorganic phos phate measurement Dr. Elgin Bal MD Work Phone: Start: 04-01-[address] Elgin Bal MD Work Phone: Start: 02-27-[address] Elgin Bal MD Work Phone: Start: 01-30-[address] Elgin Bal MD Work Phone: Start: 01-03-[address] Elgin Bal MD Work Phone: Start: 01-03-2025 Urine microalbumin/creatinine ratio measurement Dr. Elgin Bal MD Work Phone: Comment on above: Test not performed Start: 01-02-2025 Assay of phosphorus inorganic Dr. Elgin Bal MD Work Phone: Start: 01-02-[address] Elgin Bal MD Work Phone: [...] Comment: URIN ALYSIS Performed By: #### [id number] #### [facility],[address] [place] [address] Start: 04-08-2020 Urinalysis HODA WYATT Comment on above: Result Comment: URIN ALYSIS Performed By: #### [id number] #### [place] [address] Start: 02-04-2020 Urinalysis HODA WYATT Comment on above: Result Comment: URIN ALYSIS Performed By: #### [id number] #### [place] [address] Start: 01-07-2020 Urinalysis HODA WYATT Comment on above: Result Comment: URIN ALYSIS Performed By: #### [id number] #### [place] [address] Start: 12-10-2019 Urinalysis HODA WYATT Comment on above: Result Comment: URIN ALYSIS Performed By: #### [id number] #### [facility],[address] [place] [address] Start: 11-05-2019 Urinalysis HODA WYATT Comment on above: Result Comment: URIN ALYSIS Performed By: #### 2 [id number] #### [place] [address] Start: 10-08-2019 Urinalysis HODA WYATT Comment on above: Result Comment: URIN ALYSIS Performed By: #### 2 [id number] #### [place] [address] Start: 09-10-2019 Urinalysis HODA WYATT Comment on above: Result Comment: URIN ALYSIS Performed By: #### 2 [id number] #### [place] [address] Start: 08-10-2019 Adult depression scr eening assessment Anthony Olivares MD Work Phone: Start: 08-06-2019 Urinalysis HODA WYATT Comment on above: Result Comment: URIN ALYSIS Performed By: #### 2 [id number] #### [facility],[address] [place] [address] Start: 07-23-2019 Colonoscopy Anthony rosa MD Work Phone: Start: 08-09-2018 Lipid 1996 panel - S ellen or Plasma Luz Daniel MD Work Phone: Urine culture Urine culture Plan of Treatment Date Care Activity Detail Author Start: 12-20-2028 Lipid panel Lipid Screening [facility] Start: 12-20-2026 Diabetes Screening Diabetes Screenin g [facility] Start: 09-16-2025 End: 09-16-2025 Patient encounter procedure 09/16/2025 9:00 AM EST Office Visit [facility] [address] [place], [place] [id number] Dorota Smith MD [address] [place] [address] 6 months in office PA [facility] Comment on above: 6 months in office P A Start: 09-14-2025 BP Controlled (<130/80) BP Controlle d (<130/80) [facility] Start: 08-15-2025 End: 08-15-2025 Patient encounter procedure 08/15/2025 2:20 PM EDT Office Visit [facility] [address] [place] [id number] Anthony Olivares MD [address] [place] [address] f/u [facility] Comment on above: f/u Start: 07-17-2025 BP Controlled (<130/80) BP Controlle d (<130/80) [facility] Start: 07-15-2025 Influenza vaccination Influenza Vacc ine (#1) [facility] Start: 05-23-2025 End: 05-23-2025 Patient encounter procedure 05/23/2025 4:00 PM EDT Office Visit [facility] [address] [place] [id number] Anthony Olivares MD [address] [place], [place] [id number] Virtual f/u per Dr Olivares.I spoke with Nursing Facility where patient is at [facility] Comment on above: Virtual f/u per Dr Leonie herrera.I spoke with Nursing Facility where patient is at Start: 03-20-2025 End: 03-20-2025 Patient encounter procedure 03/20/2025 9:00 AM EDT Office Visit [facility] [address] [place] [address] Leeann Lopez PA-C [address] [place], [place] [id number] 6 months in office PA [facility] Comment on above: 6 months in office P A Start: 02-26-2025 End: 02-26-2025 Patient encounter procedure 02/26/2025 9:00 AM EDT Appointment [facility] [address] [place] [id number] [address] Ignacio Jack, granulomatosis, () Infusion Center Comment on above: Dr Ignacio Jack, granulomatosis, () Start: 02-20-2025 Covid-19 Vaccine (9 - Pfizer risk ) Covid-19 Vaccine (9 - Pfizer risk ) [facility] Start: 12-20-2024 BP Controlled (<130/80) BP Controlle d (<130/80) [facility] Start: 12-20-2024 Complete blood count Hemoglobin/Timo tocrit [facility] Start: 12-20-2024 Creatinine measurement Serum Creatin ine [facility] Start: 11-20-2024 End: 11-20-2024 Patient encounter procedure 11/20/2024 11:00 AM EST Office Visit [facility] [address] [place] [phone] Anthony Olivares MD [address] [place] [address] follow up in October per Dr Olivares [facility] Comment on above: follow up in per Dr Olivares Start: 11-14-2024 Medicare Advantage Annual Wellness Visit Medicare Advantage Annual Wellness Visit [facility] Start: 10-17-2024 Covid-19 Vaccine () Covid-19 Vaccine () [facility] Start: 09-14-2024 End: 09-14-2024 Patient encounter procedure 09/14/2024 9:00 AM EDT Office Visit [facility] [address] [place] [address] Dorota Smith MD [address] [place], [place] [address] RA/Trans from Dr Daniel to [facility] Comment on above: RA/Trans from Dr Ruben welsh to [facility] Start: 08-09-2024 End: 08-09-2024 Patient encounter procedure 08/09/2024 7:00 AM EDT Appointment Infusion Center [address] [place] [address] rituximabJulia simon(RK) Infusion Center Comment on above: rituximabJulia simon(RK) Start: 07-17-2024 End: 07-17-2024 Patient encounter procedure 07/17/2024 11:20 AM EDT Office Visit [facility] [address] [address] Anthony Olivares MD [address] [place] [address] Vasculitis Renal follow up [facility] Comment on above: Vasculitis Renal fol low up Start: 07-15-2024 Covid-19 Vaccine ( season) Covid-19 Vaccine ( season) [facility] Start: 07-15-2024 Covid-19 Vaccine ( season) Covid-19 Vaccine ( season) [facility] Start: 07-15-2024 Influenza vaccination Influenza Vacc ine (#1) [facility] Start: 05-21-2024 End: 05-21-2024 Patient encounter procedure 05/21/2024 9:20 AM EDT Office Visit [facility] [address] [place] [address] Dorota Smith MD [address] [place] [address] RA/Trans from Dr Daniel to [facility] Comment on above: RA/Trans from Dr Ruben welsh to [facility] Start: 03-09-2024 Lipid panel Lipid Screening [facility] Start: 02-21-2024 PROSTATE CANCER SCREENING DISCUSSION PROSTATE CANCER SCREENING DISCUSSION [facility] Start: 02-21-2024 Prostate specific antigen measurement Prostate Cancer Screening Discussion [facility] Start: 12-20-2023 End: 03-20-2024 25-hydroxyvitamin D3 [Mass/volume] in Serum or Plasma [facility] Work Phone: Comment on above: Expected: 12/20/2023 , Expires: 03/20/2024 Start: 12-12-2023 Covid-19 Vaccine () Covid-19 Vaccine () [facility] Start: 11-14-2023 Behavioral Health Screening Behavioral Health Screening [facility] Start: 11-14-2023 [facility] Start: 11-04-2023 Diabetes Screening Diabetes Screenin [facility] Start: 11-03-2023 BP CONTROLLED (<130/80) BP CONTROLLE D (<130/80) [facility] Start: 09-18-2023 DIABETES SCREEN DIABETES SCREEN [facility] Start: 09-18-2023 Diabetes Screening Diabetes Screenin [facility] Start: 08-09-2023 Lipid 1996 panel - S ellen or Plasma Lipid Screening [facility] Start: 08-09-2023 LIPID SCREEN LIPID SCREEN [facility] Start: 07-15-2023 Covid-19 Vaccine ( season) Covid-19 Vaccine () [facility] Start: 07-15-2023 Influenza vaccination C [facility] Start: 2023 RSV Vaccine (1 - 1-d ose 60+ series) RSV Vaccine (1 - 1-dose 60+ series) [facility] Start: 2023 RSV Vaccine (1 - Ris k 60-74 years 1-dose series) RSV Vaccine (1 - Risk 60-74 years 1-dose series) [facility] Start: 11-14-2022 DEPRESSION ASSESSMENT DEPRESSION ASS ESSMENT [facility] Start: 11-03-2022 End: 11-03-2023 Chronic hepatitis differentiation between hepatitis B and C virus panel - Serum or Plasma HEP REMOTE PANEL BL Lab Routine 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) Expected: 11/03/2022, Expires: 11/03/2023 [facility] Work Phone: Comment on above: Expected: 11/03/2022 , Expires: 11/03/2023 Start: 07-23-2022 Colonoscopy COLONOSCOPY [facility] Start: 07-23-2022 COLORECTAL CANCER SCREENING COLORECTAL CANCER SCREENING [facility] Start: 07-23-2022 Screening for malign ant neoplasm of colon [facility] Start: 07-15-2022 Influenza vaccination INFLUENZA (#1) [facility] Start: 04-29-2022 COVID-19 VACCINE (6 - Booster for Pfizer series) COVID-19 VACCINE (6 - Booster for Pfizer series) [facility] Start: 01-04-2022 COVID-19 VACCINE (5 - Booster for Pfizer series) COVID-19 VACCINE (5 - Booster for Pfizer series) [facility] Start: 11-14-2021 DEPRESSION ASSESSMENT DEPRESSION ASS ESSMENT [facility] Start: 11-04-2021 Creatinine measurement [facility] Start: 11-04-2021 Potassium monitoring Potassium monit oring [employer] Start: 11-02-2021 HEMOGLOBIN/HEMATOCRIT HEMOGLOBIN/HEM ATOCRIT [facility] Start: 09-18-2021 SERUM CREATININE SERUM CREATININE Cl [facility] Start: 11-09-2020 Influenza vaccination LUNG CANCER SC REENING [facility] Start: 11-09-2020 Screening for malign ant neoplasm of lung Lung Cancer Screening [facility] Start: 08-10-2020 Adult depression screening assessment DEPRESSION SCREENING [facility] Start: 07-15-2020 Influenza vaccination Flu vaccine (# 1) [employer] Start: 02-21-2020 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 DIPTI DISEASE VISIT ANNUAL PCP TEAM CHRONIC DISEASE VISIT [facility] Start: 07-10-2019 PNEUMOCOCCAL (3 - PP SV23 if available, else PCV20) PNEUMOCOCCAL (3 - PPSV23 if available, else PCV20) [facility] Start: 07-10-2019 PNEUMOCOCCAL (3 - PP SV23 or PCV20) PNEUMOCOCCAL (3 - PPSV23 or PCV20) [facility] Start: 07-10-2019 Pneumococcal vaccination Pneum ococcal Vaccine (3 - PPSV23 or PCV20) [facility] Start: 09-04-2018 Pneumococcal vaccination Pneum ococcal Vaccine (3 of 3 - PPSV23 or PCV20) [facility] Start: 08-16-2014 TWO PNEUMOVAX 5 YEAR S APART PRIOR TO AGE 65 (#2) TWO PNEUMOVAX 5 YEARS APART PRIOR TO AGE 65 (#2) [facility] Start: 2013 SHINGRIX VACCINE (1 of 2) SHINGRIX VACCINE (1 of 2) [facility] Start: 2008 COLOGUARD (FIT-DNA) COLOGUARD (FIT-D NA) [facility] Start: [address] COLONOGRAPHY [facility] Start: 2008 FECAL OCCULT BLOOD FECAL OCCULT BLOO D [facility] Start: 2008 Screening for malign ant neoplasm of colon [facility] Start: 2008 SIGMOIDOSCOPY SIGMOIDOSCOPY [facility] Start: 1982 SHINGRIX VACCINE (1 of 2) SHINGRIX VACCINE (1 of 2) [facility] Start: 1982 Urine microalbumin profile [facility] Start: 1981 Annual PCP Team Global Project Manager dipti Disease Visit Annual PCP Team Chronic Disease Visit [facility] Start: 1981 Anxiety Screening Anxiety Screening [facility] Start: 1981 BP CONTROLLED (<130/80) BP CONTROLLE D (<130/80) [facility] Start: 1981 Depression Screening Depression Scre ening [facility] CBC Auto Differential CBC Auto D ifferential Lab Routine Daily until discontinued starting 11/03/2020, 2 completed [employer] [place] [place] Comment on above: Daily until disconti nued starting 11/03/2020, 2 completed End: 12-19-2024 CBC W Auto Differential panel - Blood CBC + DIFF Lab Routine Stage 3b chronic kidney disease (HCC) 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) Once per month for 13 Occurrences starting 12/20/2023 until 12/19/2024, 1 completed [facility] Work Phone: Comment on above: Once per month for 1 3 Occurrences starting 12/20/2023 until 12/19/2024, 1 completed End: 05-23-2026 CBC W Auto Differential panel - Blood COMPLETE BLOOD COUNT AND DIFFERENTIAL Lab Routine 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) Every 2 months for 7 Occurrences starting 05/23/2025 until 05/23/2026 [facility] Comment on above: Every 2 months for 7 Occurrences starting 05/23/2025 until 05/23/2026 End: 12-19-2024 Comprehensive metabolic 2000 panel - Serum or Plasma COMP METABOLIC PANEL Lab Routine Stage 3b chronic kidney disease (HCC) 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) Once per month for 13 Occurrences starting 12/20/2023 until 12/19/2024, 1 completed [facility] Work Phone: Comment on above: Once per month for 1 3 Occurrences starting 12/20/2023 until 12/19/2024, 1 completed End: 05-23-2026 Comprehensive metabolic 2000 panel - Serum or Plasma COMPREHENSIVE METABOLIC PANEL Lab Routine 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) Every 2 months for 7 Occurrences starting 05/23/2025 until 05/23/2026 [facility] Work Phone: Comment on above: Every 2 months for 7 Occurrences starting 05/23/2025 until 05/23/2026 Comprehensive Metabo lic Panel w/ Reflex to MG Comprehensive Metabolic Panel w/ Reflex to MG Lab Routine Daily until discontinued starting 10/28/2020, 7 [facility] Comment on above: Daily until disconti nued starting 10/28/2020, 7 completed Nasal Cannula Oxygen Nasal Cannu la Oxygen Respiratory Care Routine Daily until discontinued starting 10/28/2020 [facility] Comment on above: Daily until disconti nued starting 10/28/2020 Nebulizer therapy HHN Treatment Respiratory Care Routine 0600, 1000, 1400, 1800, 2200 until discontinued starting 10/30/2020 [facility] Comment on above: 0600, 1000, 1400, 18 00, 2200 until discontinued starting 10/30/2020 Oxygen therapy [[facility] Data Set] Initiate Oxygen Therapy Protocol Respiratory Care Routine Daily until discontinued starting 10/28/2020 [facility] Comment on above: Daily until disconti nued starting 10/28/2020 End: 12-19-2024 Phosphate [Mass/volume] in Serum or Plasma PHOSPHORUS INORGANIC Lab Routine Stage 3b chronic kidney disease (HCC) 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) Once per month for 13 Occurrences starting 12/20/2023 until 12/19/2024, 1 completed [facility] Work Phone: Comment on above: Once per month for 1 3 Occurrences starting 12/20/2023 until 12/19/2024, 1 completed End: 05-23-2026 Phosphate [Mass/volume] in Serum or Plasma PHOSPHORUS INORGANIC Lab Routine 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) Every 2 months for 7 Occurrences starting 05/23/2025 until 05/23/2026 [facility] Comment on above: Every 2 months for 7 Occurrences starting 05/23/2025 until 05/23/2026 End: 12-19-2024 Protein/Creatinine [Mass Ratio] in Urine PROTEIN CREATININE RATIO Lab Routine 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) Once per month for 13 Occurrences starting 12/20/2023 until 12/19/2024 [facility] Work Phone: Comment on above: Once per month for 1 3 Occurrences starting 12/20/2023 until 12/19/2024 UA DIP, URINE (POC) UA DIP, URIN E (POC) Lab Routine Screening for genitourinary condition 1 Occurrences starting 11/20/2024 [facility] Work Phone: Comment on above: 1 Occurrences starti ng 11/20/2024 UA DIP, URINE (POC) UA DIP, URIN E (POC) Lab Routine Screening for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 Diagnosis Granulomatosis with polyangiitis with [...] documented in this encounter [facility] note* Diagnosis Granulomatosis with polyangiitis with [...] documented in this encounter [facility] note* Diagnosis Granulomatosis with polyangiitis with [...] documented in this encounter [facility] note* Diagnosis Granulomatosis with polyangiitis with [...] documented in this encounter [facility] note* Diagnosis Granulomatosis with polyangiitis with [...] documented in this encounter [facility] note* Diagnosis Granulomatosis with polyangiitis with [...] documented in this encounter [facility] note* Diagnosis Granulomatosis with polyangiitis with [...] documented in this encounter [facility] note* Diagnosis Granulomatosis with polyangiitis with [...] kidney disease (HCC) documented in this encounter [facility] note* Diagnosis Granulomatosis with polyangiitis with [...] unspecified genitourinary condition documented in this encounter [facility] for referral (narrative)* Diagnostic Procedure Only (Routine) - Closed Specialty Diagnoses / Procedures Referred By Contac t Referred To Contact XR IMAGING Diagnoses Chronic pain of right knee Procedures XR KNEE LIMITED 2V AP/LAT RIGHT RADIOLOGIC EXAMINATION KNEE 1/2 VIEWS Luz Daniel MD [address] [address] Xr Imaging Referral ID Status Reason Start Date Expiration Date V isits Requested Visits Authorized [id number] Closed Auto-Generate d Referral 02/26/2022 03/28/2023 1 1 * Diagnostic Procedure Only (Routine) - Closed Specialty Diagnoses / Procedures Referred By Contac t Referred To Contact XR IMAGING Diagnoses Rheumatoid arthritis involving both hands 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 rheumatoid factor (HCC) Procedures XR FOOT GENERAL 3V AP/LAT/OBL RIGHT RADEX FOOT COMPLETE MINIMUM 3 VIEWS Luz Daniel MD [address] [address] Xr Imaging Referral ID Status Reason Start Date Expiration Date V isits Requested Visits Authorized [id number] Closed Auto-Generate d Referral 02/26/2022 03/28/2023 1 1 * Diagnostic Procedure Only (Routine) - Closed Specialty Diagnoses / Procedures Referred By Contac t Referred To Contact XR IMAGING Diagnoses Rheumatoid arthritis involving both hands 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 rheumatoid factor (HCC) Procedures XR FOOT GENERAL 3V AP/LAT/OBL LEFT RADEX FOOT COMPLETE MINIMUM 3 VIEWS Luz Daniel MD [address] [place] [address] Xr Imaging Referral ID Status Reason Start Date Expiration Date V isits Requested Visits Authorized [id number] Closed Auto-Generate d Referral 02/26/2022 03/28/2023 1 1 * Diagnostic Procedure Only (Routine) - Closed Specialty Diagnoses / Procedures Referred By Contac t Referred To Contact XR IMAGING Diagnoses Rheumatoid arthritis involving both hands 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 rheumatoid factor (HCC) Procedures XR HAND GENERAL 3V PA/LAT/OBL RIGHT RADEX HAND MINIMUM 3 VIEWS Luz Daniel MD [address] [place] [address] Xr Imaging Referral ID Status Reason Start Date Expiration Date V isits Requested Visits Authorized [id number] Closed Auto-Generate d Referral 02/26/2022 03/28/2023 1 1 * Diagnostic Procedure Only (Routine) - Closed Specialty Diagnoses / Procedures Referred By Contac t Referred To Contact XR IMAGING Diagnoses Rheumatoid arthritis involving both hands 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 rheumatoid factor (HCC) Procedures XR HAND GENERAL 3V PA/LAT/OBL LEFT RADEX HAND MINIMUM 3 VIEWS Luz Daniel MD [address] [address] Xr Imaging Referral ID Status Reason Start Date Expiration Date V isits Requested Visits Authorized [id number] Closed Auto-Generate d Referral 02/26/2022 03/28/2023 1 1 [facility] referral (narrative)No reason for referral information availableWCleveland Clinic Mer[facility] Work Phone: Reason for visit Narrative* [place] Prior Authorization (Routine) - Authorized Specialty Diagnoses / Procedures Referred By Contac t Referred To Contact Diagnoses 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) Procedures INJ RUXIENCE, 10 MG Anthony Olivares MD [address] [place] [address] Phone: tel: fax: Anthony Olivares MD [address] [place] [address] Phone: tel: fax: Referral ID Status Reason Start Date Expiration Date V isits Requested Visits Authorized [id number] Authorized 01/30/2025 01/31/2026 2 2 [facility] Summary Purpose Family History No [...] No March 02, 2019 1:12pm Power of Medical Appointment Clerk No March 02 1:12pm Documents on File Type Date Recorded Patient Food And Nutrition Supervisor Expl anation Advance Directive(s) 08/17/2019 7:16 PM Advance Directive(s) 08/14/2019 9:32 AM Advance Directive(s) 07/23/2019 12:21 PM Advance Directive(s) 01/05/2019 9:49 AM Advance Directive(s) 06/12/2018 10:01 AM Advance Directive(s) 08/24/2016 10:32 PM Advance Directive(s) 08/11/2016 2:31 PM Documents on File Type Date Recorded Patient Food And Nutrition Supervisor Expl anation Advance Directive(s) 08/17/2019 7:16 PM Advance Directive(s) 08/14/2019 9:32 AM Advance Directive(s) 07/23/2019 12:21 PM Advance Directive(s) 01/05/2019 9:49 AM Advance Directive(s) 06/12/2018 10:01 AM Advance Directive(s) 08/24/2016 10:32 PM Advance Directive(s) 08/11/2016 2:31 PM Advance Directive Response Recorded Date/ Time Advance Directives No July 12:38am Living Will No March 02, 2019 12:12pm Power of Medical Appointment Clerk No March 02 12:12pm Advance Directive Response [...] with shortness of breath and hypoxia from [facility]. He had a positive COVID19 test [...] 10/28/20 0000 -- -- -- Aminah León [phone] Admitting Physician: Farrukh Diaz MD PCP: No primary care provider on file. Discharging Nurse: [facility] Unit/Room#: 042/6288 Discharging Unit Phone Number: [phone] Emergency Contact: No emergency contact information on [...] Casillas RN 11/05/20 11/12/20 10/14/2020 Documentation in [place] Disease Reporting System of positive COVID - [...] Assisted Dressing Assisted Toileting Independent Feeding Independent Inletter Assisted Med Delivery whole Wound Care Documentation [...] Read[facility]: [facility] Address: [address] [place] [id number] Dialysis Facility (if applicable) Name: Address: Dialysis Schedule: Phone: Fax: Adult Daycare Coordinator/Program Director [employer] signature: at12:24 PM EST PHYSICIAN SECTION Prognosis: [...] PM EST Report given to Yesenia jiang Regina. * Amaris Ibrahim RCP - 11/04/2020 12:15 PM EST [facility] Respiratory Care Department Progress Note SpO2 [...] Daniel MD - 11/03/2020 6:05 PM EST [facility] Progress Note Subjective/ 55 [...] in remission from renal perspective. No urgent INSTRUMENTATION AND CONTROLS DESIGNER indications. Will follow. [facility] * Farrukh Diaz MD - 11/03/2020 1:09 PM EST Hospitalist Progress Note 11/03/2020 1:09 PM [phone]: Please page de [phone] for patient care issues. [phone]: Please page [facility] night Hospitalist for any issues. [...] of Hospitalist Medicine Inpatient Medical Services PAGER: [phone] * Piyush Daniel MD - 11/02/2020 10:00 PM EST [facility] Progress Note Subjective/ 55 [...] remission atleast from renal perspective. No urgent INSTRUMENTATION AND CONTROLS DESIGNER indications. Will follow. [facility] * Farrukh Diaz MD - 11/02/2020 3:16 PM EST Hospitalist Progress Note 11/02/2020 3:16 PM [phone]: Please page de [phone] for patient care issues. [phone]: Please page [facility] for any issues. Subjective: Admit Date: [...] of Hospitalist Medicine Inpatient Medical Services PAGER: [phone] * Piyush Daniel MD - 11/01/2020 8:04 PM EST [facility] Progress Note Subjective/ 55 [...] 1 ampule 1 ampule Inhalation Q4H PRN Frarukh Diaz MD furosemide (LASIX) tablet 60 mg [...] 50 mg 50 mg Oral Daily Farrukh Daiz MD 50 mg at 11/01/20 0830 omega-3 [...] remission atleast from renal perspective. No urgent INSTRUMENTATION AND CONTROLS DESIGNER indications. Will follow. [facility] * Farrukh Diaz MD - 11/01/2020 3:07 PM EST Hospitalist Progress Note 11/01/2020 3:08 PM [phone]: Please page de [phone] for patient care issues. [phone]: Please page [facility] night Hospitalist for any issues. [...] of Hospitalist Medicine Inpatient Medical Services PAGER: [phone] * Mia Noyola RCP - 11/01/2020 12:00 [...] EST Hospitalist Progress Note 11/01/2020 11:33 AM [phone]: Please page de [phone] for patient care issues. [phone]: Please page [facility] night Hospitalist for any issues. [...] of Hospitalist Medicine Inpatient Medical Services PAGER: [phone] * Bakari Hdz MD - 10/31/2020 9:35 AM EST [facility] Progress Note Subjective/ 55 [...] solution 1 ampule 1 ampule Inhalation Q4H MT Farrukh Diaz MD 1 ampule at 10/30/207 [...] in remission atleast from renal perspective. D/w [facility]. No urgent INSTRUMENTATION AND CONTROLS DESIGNER indications. Will follow. [facility] * Farrukh Diaz MD - 10/30/2020 3:50 PM EST Hospitalist Progress Note 10/30/2020 3:50 PM [phone]: Please page de [phone] for patient care issues. [phone]: Please page [facility] night Hospitalist for any issues. [...] NEGATIVE: No targets were detected by the [employer] Upper Respiratory Pathogens PCR Panel. _ Expected Result: Not Detected The [employer] Upper Respiratory Pathogens PCR Panel can detect [...] management decisions. This assay was developed by [employer] and distributed under an Emergency Use Authorization (EUA) granted by the FDA for the qualitative detection of SARS-CoV-2 nucleic acid. Provider and patient fact sheets can be found at https://www.fda. gov/media/278679/download and https://www.fda.gov/media/521751/download. Assessment / Plan 1. Acute hypoxic respiratory [...] of Hospitalist Medicine Inpatient Medical Services PAGER: [phone] * Bakari Hdz MD - 10/30/2020 10:18 AM EST [facility] Progress Note Subjective/ 55 [...] from renal perspective. D/w [facility]. No urgent INSTRUMENTATION AND CONTROLS DESIGNER indications. Will follow. [facility] * Jeanie Samuel - 10/30/2020 9:42 AM EST Nutrition rescreen completed. Patient assigned a level 1. * Farrukh Diaz MD - 10/29/2020 5:56 PM EST Hospitalist Progress Note 10/29/2020 5:56 PM [phone]: Please page de [phone] for patient care issues. [phone]: Please page [facility] night Hospitalist for any issues. [...] NEGATIVE: No targets were detected by the [employer] Upper Respiratory Pathogens PCR Panel. _ Expected Result: Not Detected The [employer] Upper Respiratory Pathogens PCR Panel can detect [...] management decisions. This assay was developed by [employer] and distributed under an Emergency Use Authorization (EUA) granted by the FDA for the qualitative detection of SARS-CoV-2 nucleic acid. Provider and patient fact sheets can be found at https://www.fda. gov/media/203249/download and https://www.fda.gov/media/543035/download. Assessment / Plan 1. Acute hypoxic respiratory [...] of Hospitalist Medicine Inpatient Medical Services PAGER: [phone] * Shirley Casillas RN - 10/29/2020 10:49 AM EST Documentation in [place] disease Reporting System: * Farrukh Diaz MD - 10/29/2020 9:58 AM EST Patient unable to get CTA chest due to DONNA - will hydrate and if able, will get it at a later time. * Irena Land RN - 10/29/2020 12:48 AM EST Patient moved into private bed [address] Mosley. Patients COVID test came back negative. Dr. Pro nursing malt liquors sales supervisor made aware. documented in this encounter Assessments Diagnosis Pneumonia due to COVID-19 virus- Primary Hypoxia Hypoxemia Hypokalemia Hypopotassemia Stage 3 chronic kidney disease, unspecified whether stage 3a or 3b CKD Chief Complaint and Reason for Visit Chief Complaint LONGTERM LAB WOR K LONGTERM LABWORK LONGTERM LABWORK LONGTERM LABWORK LONGTERM LAB WORK LONGTERM LABWORK Chief Complaint LONGTERM LABWORK LONGTERM LABWORK LONGTERM LAB WORK LONGTERM LABWORK LONGTERM LABWORK LONGTERM LABWORK Chief Complaint LONGTERM LABWORK LONGTERM LAB WORK LONGTERM LABWORK LONGTERM LABWORK LONGTERM LABWORK LABWORK LONGTERM LABWORK Chief Complaint LONGTERM LABWORK LONGTERM LAB WORK LONGTERM LABWORK LONGTERM LABWORK LONGTERM LABWORK LABWORK LONGTERM LABWORK LABWORK Chief Complaint LONGTERM LAB WOR K LONGTERM LABWORK LONGTERM LABWORK LONGTERM LABWORK LABWORK LONGTERM LABWORK LABWORK LABWORK Chief Complaint LONGTERM LABWORK LONGTERM LABWORK LABWORK LONGTERM LABWORK LABWORK LONGTERM LABWORK LABWORK LONGTERM LAB WORK LABWORK Chief Complaint LABWORK LONGTERM LABWORK LABWORK LONGTERM LABWORK LABWORK LONGTERM LAB WORK LABWORK LABWORK LABWORK Chief Complaint LABWORK LONGTERM LABWORK LABWORK LONGTERM LABWORK LABWORK LONGTERM LAB WORK LABWORK LABWORK LABWORK LONGTERM LABWORK Chief Complaint LONGTERM LABWORK LABWORK LONGTERM LABWORK LABWORK LONGTERM LAB WORK LABWORK LABWORK LABWORK LONGTERM LABWORK LONGTERM LABWORK Chief Complaint LABWORK LABWORK LABWORK LONGTERM LABWORK LONGTERM LABWORK LONGTERM LABWORK Chief Complaint LABWORK LABWORK LABWORK LONGTERM LABWORK LONGTERM LABWORK LABWORK LONGTERM LABWORK Chief Complaint LABWORK LABWORK LONGTERM LABWORK LONGTERM LABWORK LABWORK LONGTERM LABWORK LONGTERM LAB WORK LONGTERM LABWORK Chief Complaint LABWORK LONGTERM LABWORK LONGTERM LABWORK LABWORK LONGTERM LABWORK LONGTERM LAB WORK LONGTERM LABWORK LONGTERM LABWORK Chief Complaint LABWORK LONGTERM LABWORK LONGTERM LAB WORK LONGTERM LABWORK LONGTERM LABWORK LABWORK LONGTERM LAB WORK LABWORK Chief Complaint LONGTERM LABWORK LONGTERM LAB WORK LONGTERM LABWORK LONGTERM LABWORK LABWORK LONGTERM LAB WORK LABWORK LABWORK Chief Complaint LONGTERM LABWORK LONGTERM LAB WORK LONGTERM LABWORK LONGTERM LABWORK LABWORK LONGTERM LAB WORK LABWORK LABWORK LONGTERM LAB WORK Chief Complaint LONGTERM LABWORK LABWORK LONGTERM LAB WORK LABWORK LABWORK LONGTERM LAB WORK LONGTERM LABWORK Chief Complaint LABWORK LONGTERM LAB WORK LABWORK LABWORK LONGTERM LAB WORK LONGTERM LABWORK LABWORK LONGTERM LABWORK Chief Complaint LONGTERM LAB WOR K LABWORK LABWORK LONGTERM LAB WORK LONGTERM LABWORK LABWORK LONGTERM LABWORK LABWORK Chief Complaint LONGTERM LAB WOR K LABWORK LABWORK LONGTERM LAB WORK LONGTERM LABWORK LABWORK LONGTERM LABWORK LABWORK LONGTERM LAB WORK Chief Complaint LABWORK LABWORK LONGTERM LAB WORK LONGTERM LABWORK LABWORK LONGTERM LABWORK LABWORK LABWORK LONGTERM LAB WORK LONGTERM LABWORK Chief Complaint LABWORK LONGTERM LAB WORK LONGTERM LABWORK LABWORK LONGTERM LABWORK LABWORK LABWORK LONGTERM LAB WORK LONGTERM LABWORK LABWORK Chief Complaint LONGTERM LAB WOR K LONGTERM LABWORK LABWORK LONGTERM LABWORK LABWORK LABWORK LONGTERM LAB WORK LONGTERM LABWORK LABWORK LABWORK Chief Complaint LABWORK LABWORK LONGTERM LABWORK LONGTERM LABWORK LABWORK LABWORK LONGTERM LAB WORK LONGTERM LABWORK Chief Complaint LONGTERM LABWORK LONGTERM LABWORK LABWORK LABWORK LONGTERM LAB WORK LONGTERM LABWORK LONGTERM LAB WORK LABWORK Chief Complaint LABWORK LABWORK LONGTERM LAB WORK LONGTERM LABWORK LONGTERM LAB WORK LABWORK LABWORK Chief Complaint LONGTERM LAB WOR K LONGTERM LABWORK LONGTERM LAB WORK LABWORK LABWORK LONGTERM LABWORK LONGTERM LABWORK Chief Complaint LABWORK LABWORK LONGTERM LABWORK LONGTERM LABWORK LABWORK Chief Complaint LABWORK LABWORK LONGTERM LABWORK LONGTERM LABWORK LABWORK LONGTERM LAB WORK Chief Complaint LABWORK LABWORK LONGTERM LABWORK LONGTERM LABWORK LABWORK LONGTERM LAB WORK LABWORK Chief Complaint LONGTERM LABWORK LONGTERM LABWORK LABWORK LONGTERM LAB WORK LABWORK LONGTERM LABWORK Chief Complaint LONGTERM LABWORK LONGTERM LABWORK LABWORK LONGTERM LAB WORK LABWORK LONGTERM LABWORK LONGTERM LAB WORK Chief Complaint LABWORK LONGTERM LAB WORK LABWORK LONGTERM LABWORK LONGTERM LAB WORK LONGTERM LAB WORK LABWORK Chief Complaint LONGTERM LAB WOR K LABWORK LONGTERM LABWORK LONGTERM LAB WORK LONGTERM LAB WORK LABWORK LABWORK Chief Complaint LONGTERM LABWORK LONGTERM LAB WORK LONGTERM LAB WORK LABWORK LABWORK LABWORK Chief Complaint Admit Date LONGTERM LAB WORK September 27 5:00am LONGTERM LAB WORK November 15, 2024 5:00am LONGTERM LAB WORK November 27, 2024 5:00am LONGTERM LAB WORK December 28 5:00am LONGTERM LAB WORK January 02 5:00am LONGTERM LAB WORK January 03 6:10am Chief Complaint Admit Date LONGTERM LAB WORK November 15, 2024 5:00am LONGTERM LAB WORK November 27, 2024 5:00am LONGTERM LAB WORK December 28 5:00am LONGTERM LAB WORK January 02 5:00am LONGTERM LAB WORK January 03 6:10am LONGTERM LAB WORK January 25, 2025 5 :00am Chief Complaint Admit Date LONGTERM LAB WORK November 15, 2024 5:00am LONGTERM LAB WORK November 27, 2024 5:00am LONGTERM LAB WORK December 28 5:00am LONGTERM LAB WORK January 02 5:00am LONGTERM LAB WORK January 03 6:10am LONGTERM LAB WORK January 25, 2025 5 :00am LONGTERM LAB WORK January 30, 2025 5 :00am Chief Complaint Admit Date LONGTERM LAB WORK November 15, 2024 5:00am LONGTERM LAB WORK November 27, 2024 5:00am LONGTERM LAB WORK December 28 5:00am LONGTERM LAB WORK January 02 5:00am LONGTERM LAB WORK January 03 6:10am LONGTERM LAB WORK January 25, 2025 5 :00am LONGTERM LAB WORK January 30, 2025 5 :00am LABWORKJ February 06, 2025 5:0 0am LABWORK February 11, 2025 5:0 0am Chief Complaint Admit Date LONGTERM LAB WORK November 27, 2024 5:00am LONGTERM LAB WORK December 28 5:00am LONGTERM LAB WORK January 02 5:00am LONGTERM LAB WORK January 03 6:10am LONGTERM LAB WORK January 25, 2025 5 :00am LONGTERM LAB WORK January 30, 2025 5 :00am LABWORKJ February 06, 2025 5:0 0am LABWORK February 11, 2025 5:0 0am LABWORK February 27, 2025 5:0 0am Chief Complaint Admit Date LONGTERM LAB WORK November 27, 2024 5:00am LONGTERM LAB WORK December 28 5:00am LONGTERM LAB WORK January 02 5:00am LONGTERM LAB WORK January 03 6:10am LONGTERM LAB WORK January 25, 2025 5 :00am LONGTERM LAB WORK January 30, 2025 5 :00am LABWORKJ February 06, 2025 5:0 0am LABWORK February 11, 2025 5:0 0am LONGTERM LAB WORK February 25, 2025 5 :00am LABWORK February 27, 2025 5:0 0am Chief Complaint Admit Date LONGTERM LAB WORK December 28 5:00am LONGTERM LAB WORK January 02 5:00am LONGTERM LAB WORK January 03 6:10am LONGTERM LAB WORK January 25, 2025 5 :00am LONGTERM LAB WORK January 30, 2025 5 :00am LABWORKJ February 06, 2025 5:0 0am LABWORK February 11, 2025 5:0 0am LONGTERM LAB WORK February 25, 2025 5 :00am LABWORK February 27, 2025 5:0 0am LONGTERM LAB WORK March 04, 2025 1 0:30pm Chief Complaint Admit Date LONGTERM LAB WORK January 25, 2025 5 :00am LONGTERM LAB WORK January 30, 2025 5 :00am LABWORKJ February 06, 2025 5:0 0am LABWORK February 11, 2025 5:0 0am LONGTERM LAB WORK February 25, 2025 5 :00am LABWORK February 27, 2025 5:0 0am LONGTERM LAB WORK March 04, 2025 1 0:30pm LABWORK March 27, 2025 5:00a m LONGTERM LAB WORK April 01, 2025 5:0 0am [...] [facility] 60 MINUTES Dorota Smith MD [address] [facility] [address] [place] [address] Referral ID Status Reason Start Date Expiration Date Visits Requested Visits Authorized [id number] Authorized PCP Requested Referral 09/14/2024 09/14/2025 1 1 Additional Source Comments INFORMATION SOURCE (unrecogn ized section and content) DATE CREATED AUTHOR 06/07/2018 [facility] DATE CREATED AUTHOR AUTHOR'S ORGANIZ ATION 04/02/2019 [facility] DATE CREATED AUTHOR AUTHOR'S ORGANIZ ATION 03/30/2020 [facility] DATE CREATED AUTHOR AUTHOR'S ORGANIZ ATION 08/05/2020 [facility] DATE CREATED AUTHOR AUTHOR'S ORGANIZ ATION 11/21/2020 [facility] DATE CREATED AUTHOR AUTHOR'S ORGANIZ ATION 09/18/2024 [facility] DATE CREATED AUTHOR AUTHOR'S ORGANIZ ATION 02/27/2025 [facility] DATE CREATED AUTHOR AUTHOR'S ORGANIZ ATION 06/11/2025 [facility] DATE CREATED AUTHOR AUTHOR'S ORGANIZ ATION 08/08/2025 [facility] (unrecognized sect ion and content) No [...] 10 MG IV RITUXIMAB Anthony Olivares MD [address] [place] [address] 1, [facility] Main Infusion Chair [address] [address] Referral ID Status Reason Start Date Expiration Date V isits Requested Visits Authorized [id number] Authorized 03/31/2022 11/13/2022 99 99 Reason Comments Shortness of Breath Reason Comments Follow Up Reason Comments Infusion iv rituximab Reason Comments Radio Main J1 Specialty Diagnoses / Procedures Referred By Contac t Referred To Contact XR IMAGING Diagnoses Chronic pain of right knee Procedures XR KNEE LIMITED 2V AP/LAT RIGHT RADIOLOGIC EXAMINATION KNEE 1/2 VIEWS Luz Daniel MD [address] [facility] [address] [place] [address] Xr Imaging Referral ID Status Reason Start Date Expiration Date V isits Requested Visits Authorized [id number] Closed Auto-Generate d Referral 02/26/2022 03/28/2023 1 1 Reason Comments Rheumatoid Arthritis Reason Comments Follow Up RA- hands, stiff and swollen Reason Comments NO SHOW Reason Comments Patient Update Reason Comments Appointment Specialty Diagnoses / Procedures Referred By Contac t Referred To Contact Diagnoses 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) Procedures INJ RUXIENCE, 10 MG Anthony Olivares MD [address] [place] [address] [facility] [address] [place] [address] Referral ID Status Reason Start Date Expiration Date V isits Requested Visits Authorized [id number] Authorized 12/27/2023 12/29/2024 24 24 Reason Comments [...] any alcohol or drug abuse patient.[facility] Center[facility] the event this information is protected by the Federal Confidentiality of Alcohol and Drug Abuse Patient Records regulations: The Federal rules restrict any use of the information to criminally investigate or prosecute any alcohol or drug abuse patient.[facility] Center[facility] the event this information is protected by the Federal Confidentiality of Alcohol and Drug Abuse Patient Records regulations: The Federal rules restrict any use of the information to criminally investigate or prosecute any alcohol or drug abuse patient.[facility] CenterIn the event this information is protected by the Federal Confidentiality of Alcohol and Drug Abuse Patient Records regulations: The Federal rules restrict any use of the information to criminally investigate or prosecute any alcohol or drug abuse patient.[facility] CenterIn the event this information is protected by the Federal Confidentiality of Alcohol and Drug Abuse Patient Records regulations: The Federal rules restrict any use of the information to criminally investigate or prosecute any alcohol or drug abuse patient.[facility] CenterIn the event this information is protected by the Federal Confidentiality of Alcohol and Drug Abuse Patient Records regulations: The Federal rules restrict any use of the information to criminally investigate or prosecute any alcohol or drug abuse patient.[facility] CenterIn the event this information is protected by the Federal Confidentiality of Alcohol and Drug Abuse Patient Records regulations: The Federal rules restrict any use of the information to criminally investigate or prosecute any alcohol or drug abuse patient.[facility] CenterIn the event this information is protected by the Federal Confidentiality of Alcohol and Drug Abuse Patient Records regulations: The Federal rules restrict any use of the information to criminally investigate or prosecute any alcohol or drug abuse patient.[facility] CenterIn the event this information is protected by the Federal Confidentiality of Alcohol and Drug Abuse Patient Records regulations: The Federal rules restrict any use of the information to criminally investigate or prosecute any alcohol or drug abuse patient.[facility] CenterIn the event this information is protected by the Federal Confidentiality of Alcohol and Drug Abuse Patient Records regulations: The Federal rules restrict any use of the information to criminally investigate or prosecute any alcohol or drug abuse patient.[facility] CenterIn the event this information is protected by the Federal Confidentiality of Alcohol and Drug Abuse Patient Records regulations: The Federal rules restrict any use of the information to criminally investigate or prosecute any alcohol or drug abuse patient.[facility] CenterIn the event this information is protected by the Federal Confidentiality of Alcohol and Drug Abuse Patient Records regulations: The Federal rules restrict any use of the information to criminally investigate or prosecute any alcohol or drug abuse patient.[facility] CenterIn the event this information is protected by the Federal Confidentiality of Alcohol and Drug Abuse Patient Records regulations: The Federal rules restrict any use of the information to criminally investigate or prosecute any alcohol or drug abuse patient.[facility] CenterIn the event this information is protected by the Federal Confidentiality of Alcohol and Drug Abuse Patient Records regulations: The Federal rules restrict any use of the information to criminally investigate or prosecute any alcohol or drug abuse patient.[facility] CenterIn the event this information is protected by the Federal Confidentiality of Alcohol and Drug Abuse Patient Records regulations: The Federal rules restrict any use of the information to criminally investigate or prosecute any alcohol or drug abuse patient.[facility] CenterIn the event this information is protected by the Federal Confidentiality of Alcohol and Drug Abuse Patient Records regulations: The Federal rules restrict any use of the information to criminally investigate or prosecute any alcohol or drug abuse patient.[facility] CenterIn the event this information is protected by the Federal Confidentiality of Alcohol and Drug Abuse Patient Records regulations: The Federal rules restrict any use of the information to criminally investigate or prosecute any alcohol or drug abuse patient.[facility] CenterIn the event this information is protected by the Federal Confidentiality of Alcohol and Drug Abuse Patient Records regulations: The Federal rules restrict any use of the information to criminally investigate or prosecute any alcohol or drug abuse patient.[facility] CenterIn the event this information is protected by the Federal Confidentiality of Alcohol and Drug Abuse Patient Records regulations: The Federal rules restrict any use of the information to criminally investigate or prosecute any alcohol or drug abuse patient.[facility] CenterIn the event this information is protected by the Federal Confidentiality of Alcohol and Drug Abuse Patient Records regulations: The Federal rules restrict any use of the information to criminally investigate or prosecute any alcohol or drug abuse patient.[facility] CenterIn the event this information is protected by the Federal Confidentiality of Alcohol and Drug Abuse Patient Records regulations: The Federal rules restrict any use of the information to criminally investigate or prosecute any alcohol or drug abuse patient.[facility] CenterIn the event this information is protected by the Federal Confidentiality of Alcohol and Drug Abuse Patient Records regulations: The Federal rules restrict any use of the information to criminally investigate or prosecute any alcohol or drug abuse patient.[facility] CenterIn the event this information is protected by the Federal Confidentiality of Alcohol and Drug Abuse Patient Records regulations: The Federal rules restrict any use of the information to criminally investigate or prosecute any alcohol or drug abuse patient.[facility] CenterIn the event this information is protected by the Federal Confidentiality of Alcohol and Drug Abuse Patient Records regulations: The Federal rules restrict any use of the information to criminally investigate or prosecute any alcohol or drug abuse patient.[facility] CenterIn the event this information is protected by the Federal Confidentiality of Alcohol and Drug Abuse Patient Records regulations: The Federal rules restrict any use of the information to criminally investigate or prosecute any alcohol or drug abuse patient.[facility] CenterIn the event this information is protected by the Federal Confidentiality of Alcohol and Drug Abuse Patient Records regulations: The Federal rules restrict any use of the information to criminally investigate or prosecute any alcohol or drug abuse patient.[facility] CenterIn the event this information is protected by the Federal Confidentiality of Alcohol and Drug Abuse Patient Records regulations: The Federal rules restrict any use of the information to criminally investigate or prosecute any alcohol or drug abuse patient.[facility] CenterIn the event this information is protected by the Federal Confidentiality of Alcohol and Drug Abuse Patient Records regulations: The Federal rules restrict any use of the information to criminally investigate or prosecute any alcohol or drug abuse patient.[facility] CenterIn the event this information is protected by the Federal Confidentiality of Alcohol and Drug Abuse Patient Records regulations: The Federal rules restrict any use of the information to criminally investigate or prosecute any alcohol or drug abuse patient.[facility] CenterIn the event this information is protected by the Federal Confidentiality of Alcohol and Drug Abuse Patient Records regulations: The Federal rules restrict any use of the information to criminally investigate or prosecute any alcohol or drug abuse patient.[facility] CenterIn the event this information is protected by the Federal Confidentiality of Alcohol and Drug Abuse Patient Records regulations: The Federal rules restrict any use of the information to criminally investigate or prosecute any alcohol or drug abuse patient.[facility] CenterIn the event this information is protected by the Federal Confidentiality of Alcohol and Drug Abuse Patient Records regulations: The Federal rules restrict any use of the information to criminally investigate or prosecute any alcohol or drug abuse patient.[facility] CenterIn the event this information is protected by the Federal Confidentiality of Alcohol and Drug Abuse Patient Records regulations: The Federal rules restrict any use of the information to criminally investigate or prosecute any alcohol or drug abuse patient.[facility] CenterIn the event this information is protected by the Federal Confidentiality of Alcohol and Drug Abuse Patient Records regulations: The Federal rules restrict any use of the information to criminally investigate or prosecute any alcohol or drug abuse patient.[facility] CenterIn the event this information is protected by the Federal Confidentiality of Alcohol and Drug Abuse Patient Records regulations: The Federal rules restrict any use of the information to criminally investigate or prosecute any alcohol or drug abuse patient.[facility] Care Teams (unrecognized sec tion and content) Steam Meter Reader Relationship Specialty Start Date End Date Elgin Bal MD [address] [place], [place] [address] PCP - General Family Practice 12/25/12 Anthony Olivares MD [address] [place] [address] Sewing Machine Maintenance Mechanic Nephrology 03/19/21 Anthony Olivares MD [address] [place] [address] Primary Staff Physician Nephrology 12/10/21 Steam Meter Reader Relationship Specialty Start Date End Date Elgin Bal MD [address] [place] [address] PCP - General Family Practice 12/25/12 Anthony Olivares MD [address] [place] [address] Sewing Machine Maintenance Mechanic Nephrology 03/19/21 Anthony Olivares MD [address] [place] [address] Primary Staff Physician Nephrology 12/10/21 Steam Meter Reader Relationship Specialty Start Date End Date Elgin Bal MD [address] [place] [address] PCP - General Family Practice 12/25/12 Anthony Olivares MD [address] [place] [address] Sewing Machine Maintenance Mechanic Nephrology 03/19/21 Anthony Olivares MD [address] [place] [address] Primary Staff Physician Nephrology 12/10/21 Steam Meter Reader Relationship Specialty Start Date End Date Elgin Bal MD [address] [place] [address] PCP - General Family Practice 12/25/12 Anthony Olivares MD [address] [place] [address] Sewing Machine Maintenance Mechanic Nephrology 03/19/21 Anthony Olivares MD [address] [place] [address] Primary Staff Physician Nephrology 12/10/21 Steam Meter Reader Relationship Specialty Start Date End Date Elgin Bal MD [address] [place] [address] PCP - General Family Practice 12/25/12 Anthony Olivares MD [address] [place] [address] Sewing Machine Maintenance Mechanic Nephrology 03/19/21 Anthony Olivares MD [address] [place] [address] Primary Staff Physician Nephrology 12/10/21 Steam Meter Reader Relationship Specialty Start Date End Date Elgin Bal MD [address] [place] [address] PCP - General Family Practice 12/25/12 Anthony Olivares MD [address] [place] [address] Sewing Machine Maintenance Mechanic Nephrology 03/19/21 Anthony Olivares MD [address] [place] [address] Primary Staff Physician Nephrology 12/10/21 Steam Meter Reader Relationship Specialty Start Date End Date Elgin Bal MD [address] [place] [address] PCP - General Family Medicine 12/25/12 Anthony Olivares MD [address] [place] [address] Sewing Machine Maintenance Mechanic Nephrology 03/19/21 Anthony Olivares MD [address] [place] [address] Primary Staff Physician Nephrology 12/10/21 Steam Meter Reader Relationship Specialty Start Date End Date Elgin Bal MD [address] [place] [address] PCP - General Family Medicine 12/25/12 Anthony Olivares MD [address] [place] [address] Sewing Machine Maintenance Mechanic Nephrology 03/19/21 Anthony Olivares MD [address] [place] [address] Primary Staff Physician Nephrology 12/10/21 Steam Meter Reader Relationship Specialty Start Date End Date Elgin Bal MD [address] [place] [address] PCP - General Family Medicine 12/25/12 Anthony Olivares MD [address] [facility] [address] Sewing Machine Maintenance Mechanic Nephrology 03/19/21 Anthony Olivares MD [address] [facility] [address] Primary Staff Physician Nephrology 12/10/21 Steam Meter Reader Relationship Specialty Start Date End Date Elgin Bal MD [address] [place] [address] PCP - General Family Medicine 12/25/12 Anthony Olivares MD [address] [place] [address] Sewing Machine Maintenance Mechanic Nephrology 03/19/21 Anthony Olivraes MD [address] [facility] [address] Primary Staff Physician Nephrology 12/10/21 Team Status: [...] CHANDLER Attending Provider, Referring Prov ider Active Steam Meter Reader Relationship Specialty Start Date End Date Elgin Bal MD [address] [place] [address] PCP - General Family Medicine 12/25/12 Anthony Olivares MD [address] [place] [address] Sewing Machine Maintenance Mechanic Nephrology 03/19/21 Anthony Olivares MD [address] [facility] [place] [address] Primary Staff Physician Nephrology 12/10/21 Team Status: Inactive Member Role Status Dates Dr. Elgin Bal MD Primary Care Provider Active Dr. Alfredo Phipps MD Attending Provider Active Team Status: Active Member Role Status Dates Dr. Elign Bal MD Primary Care Provider Active Adam CHANDLER Attending Provider, [place] Active Steam Meter Reader Relationship Specialty Start Date End Date Elgin Bal MD [address] [place] [address] PCP - General Family Medicine 12/25/12 Anthony Olivares MD [address] [place], [place] [id number] Sewing Machine Maintenance Mechanic Nephrology 03/19/21 Anthony Olivares MD [address] [place] [address] Primary Staff Physician Nephrology 12/10/21 Steam Meter Reader Relationship Specialty Start Date End Date Elgin Bal MD [address] [place] [address] PCP - General Family Medicine 12/25/12 Anthony Olivares MD [address] [place] [address] Sewing Machine Maintenance Mechanic Nephrology 03/19/21 Anthony Olivares MD [address] [place] [address] Primary Staff Physician Nephrology 12/10/21 Steam Meter Reader Relationship Specialty Start Date End Date Alfredo Phipps MD [address] [address] PCP - General Internal Medicine 10/19/23 Anthony Olivares MD [address] [place] [address] Sewing Machine Maintenance Mechanic Nephrology 03/19/21 Anthony Olivares MD [address] [place] [address] Primary Staff Physician Nephrology 12/10/21 Steam Meter Reader Relationship Specialty Start Date End Date Alfredo Phipps MD [address] [place] [address] PCP - General Internal Medicine 10/19/23 Anthony Olivares MD [address] [place] [address] Sewing Machine Maintenance Mechanic Nephrology 03/19/21 Anthony Olivares MD [address] [place] [address] Primary Staff Physician Nephrology 12/10/21 Steam Meter Reader Relationship Specialty Start Date End Date Alfredo Phipps MD [address] [facility] [address] [place] [address] PCP - General Internal Medicine 10/19/23 Anthony Olivares MD [address] [place] [address] Sewing Machine Maintenance Mechanic Nephrology 03/19/21 Anthony Olivares MD [address] [place] [address] Primary Staff Physician Nephrology 12/10/21 Steam Meter Reader Relationship Specialty Start Date End Date Alfredo Phipps MD [address] [facility] [address] [place] [address] PCP - General Internal Medicine 10/19/23 Anthony Olivares MD [address] [place] [address] Sewing Machine Maintenance Mechanic Nephrology 03/19/21 Anthony Olivares MD [address] [place] [address] Primary Staff Physician Nephrology 12/10/21 Steam Meter Reader Relationship Specialty Start Date End Date Alfredo Phipps MD [address] [facility] [address] [place] [address] PCP - General Internal Medicine 10/19/23 Anthony Olivares MD [address] [place] [address] Sewing Machine Maintenance Mechanic Nephrology 03/19/21 Anthony Olivares MD [address] [place] [address] Primary Staff Physician Nephrology 12/10/21 Steam Meter Reader Relationship Specialty Start Date End Date Alfredo Phipps MD [address] [facility] [address] [place] [address] PCP - General Internal Medicine 10/19/23 Anthony Olivares MD [address] [place] [address] Sewing Machine Maintenance Mechanic Nephrology 03/19/21 Anthony Olivares MD [address] [place] [address] Primary Staff Physician Nephrology 12/10/21 Steam Meter Reader Relationship Specialty Start Date End Date Alfredo Phipps MD [address] [facility] [address] [place] [address] PCP - General Internal Medicine 10/19/23 Anthony Olivares MD [address] [place] [address] Sewing Machine Maintenance Mechanic Nephrology 03/19/21 Anthony Olivares MD [address] [place] [address] Primary Staff Physician Nephrology 12/10/21 Steam Meter Reader Relationship Specialty Start Date End Date Alfredo Phipps MD [address] [facility] [address] [place] [address] PCP - General Internal Medicine 10/19/23 Anthony Olivares MD [address] [place] [address] Sewing Machine Maintenance Mechanic Nephrology 03/19/21 Anthony Olivares MD [address] [place] [address] Primary Staff Physician Nephrology 12/10/21 Steam Meter Reader Relationship Specialty Start Date End Date Alfredo Phipps MD [address] [facility] [address] [place] [address] PCP - General Internal Medicine 10/19/23 Anthony Olivares MD [address] [place] [address] Sewing Machine Maintenance Mechanic Nephrology 03/19/21 Anthony Olivares MD [address] [place] [address] Primary Staff Physician Nephrology 12/10/21 Steam Meter Reader Relationship Specialty Start Date End Date Alfredo Phipps MD [address] [place] [address] PCP - General Internal Medicine 10/19/23 Anthony Olivares MD [address] [place] [address] Sewing Machine Maintenance Mechanic Nephrology 03/19/21 Anthony Olivares MD [address] [place] [address] Primary Staff Physician Nephrology 12/10/21 Steam Meter Reader Relationship Specialty Start Date End Date Alfredo Phipps MD [address] [place] [address] PCP - General Internal Medicine 10/19/23 Anthony Olivares MD [address] [place] [address] Sewing Machine Maintenance Mechanic Nephrology 03/19/21 Anthony Olivares MD [address] [place] [address] Primary Staff Physician Nephrology 12/10/21 Steam Meter Reader Relationship Specialty Start Date End Date Alfredo Phipps MD [address] [place] [address] PCP - General Internal Medicine 10/19/23 Anthony Olivares MD [address] [place] [address] Sewing Machine Maintenance Mechanic Nephrology 03/19/21 Anthony Olivares MD [address] [place] [address] Primary Staff Physician Nephrology 12/10/21 Steam Meter Reader Relationship Specialty Start Date End Date Alfredo Phipps MD [address] [facility] [address] [place] [address] PCP - General Internal Medicine 10/19/23 Anthony Olivares MD [address] [place] [address] Sewing Machine Maintenance Mechanic Nephrology 03/19/21 Anthony Olivares MD [address] [place] [address] Primary Staff Physician Nephrology 12/10/21 Steam Meter Reader Relationship Specialty Start Date End Date Alfredo Phipps MD [address] [facility] [address] [place] [address] PCP - General Internal Medicine 10/19/23 Anthony Olivares MD [address] [place] [address] Sewing Machine Maintenance Mechanic Nephrology 03/19/21 Anthony Olivares MD [address] [place], [place] [id number] Primary Staff Physician Nephrology 12/10/21 Team Status: [...] January 30, 2025 End: January 30, 2025 Steam Meter Reader Relationship Specialty Start Date End Date Alfredo Phipps MD [address] [address] PCP - General Internal Medicine 10/19/23 Anthony Olivares MD [address] [place] [address] Sewing Machine Maintenance Mechanic Nephrology 03/19/21 Anthony Olivares MD [address] [place] [address] Primary Staff Physician Nephrology 12/10/21 [...] Status: Active Member Role/Relationship Status Dates Dr. Elgni Bal MD Primary Care Provider Active Start: [...] Provider Active St art: May 02, 2025 Steam Meter Reader Relationship Specialty Start Date End Date Alfredo Phipps MD [address] [facility] [address] [place] [address] PCP - General Internal Medicine 10/19/23 Anthony Olivares MD [address] [place] [address] Sewing Machine Maintenance Mechanic Nephrology 03/19/21 Anthony Olivares MD [address] [place] [address] Primary Staff Physician Nephrology 12/10/21 Steam Meter Reader Relationship Specialty Start Date End Date Alfredo Phipps MD [address] [facility] [address] [place] [address] PCP - General Internal Medicine 10/19/23 Anthony Olivares MD [address] [place] [address] Sewing Machine Maintenance Mechanic Nephrology 03/19/21 Anthony Olivares MD [address] [place] [address] Primary Staff Physician Nephrology 12/10/21 Steam Meter Reader Relationship Specialty Start Date End Date Alfredo Phipps MD [address] [facility] [address] [place] [address] PCP - General Internal Medicine 10/19/23 Anthony Olivares MD [address] [place] [address] Sewing Machine Maintenance Mechanic Nephrology 03/19/21 Anthony Olivares MD [address] [place] [address] Primary Staff Physician Nephrology 12/10/21 Inactive Administered [...] BE BASED ON THE PRIMARY CLINICAL RECORDS. [employer] provides no warranty or guarantee of the accuracy or completeness of information in this document.
== END ==
LOC: OLS.SANC 05:00
PROVIDERS: PCP Family Medicine; Visit Provider Internal Medicine
DX: E11.9 Type 2 diabetes mellitus without complications (principal)
CPT/HCPCS: 36415; 83036

== ENCOUNTER → 2025-08-14 05:00 | Outpatient (REF) | payer MEDICARE, MEDICAID, SELFPAY ==
[2025-08-14 09:48] LABS: Hematocrit 37.9 % (40-54); Hemoglobin 12.6 g/dL (13.0-16.5); Immature Granulocytes Count 0.050 X10^3/uL (0.0-0.0); Mean Corp Hgb Conc 33.2 g/dL (32-36); Mean Corpuscular Volume 89.8 fL (80-94); Mean Platelet Vol. 9.4 fl (6.2-12.0); NRBC Flagged by Analyzer 0 % (0-5); Platelet Count 248 K/mm3 (150-450); RBC Distribution Width CV 12.8 % (11.6-14.6); RBC Distribution Width SD 41.8 fl (35.1-43.9); Red Blood Count 4.22 M/mm3 (4.6-6.2); White Blood Count 9.6 K/mm3 (4.4-11.0)
[2025-08-14 10:02] LABS: AST(SGOT) 14 U/L (<=37); Alanine Aminotransfer ALT/SGPT 12 U/L (<=46); Albumin, Serum 3.6 g/dL (3.4-4.8); Alkaline Phosphatase 90 U/L (40-129); Anion Gap 12 (5-15); BUN 30 mg/dL (4-19); BUN/Creat Ratio 11.6 RATIO (10-20); Calcium,Total 9.0 mg/dL (7.6-11.0); Carbon Dioxide 20.8 mmol/L (21.0-32.0); Chloride 105 mmol/L (98-108); Globulin 2.3 g/dL (2.2-4.2); Glucose 128 mg/dL (70-99); Potassium 4.4 mmol/L (3.3-5.1)
[2025-08-14 10:23] LABS: Lithium 0.60 mmol/L (0.60-1.20)
== END ==
LOC: OLS.SANC 05:00
PROVIDERS: PCP Family Medicine; Visit Provider Internal Medicine
DX: E11.22 Type 2 diabetes mellitus with diabetic chronic kidney disease (principal); I12.9 Hypertensive chronic kidney disease with stage 1 through stage 4 chronic kidney disease, or unspecified chronic kidney disease; N18.30 Chronic kidney disease, stage 3 unspecified; M31.31 Wegener's granulomatosis with renal involvement
CPT/HCPCS: 36415; 80053; 80178; 84100; 85025

== ENCOUNTER → 2025-08-27 05:00 | Outpatient (REF) | payer MEDICARE, MEDICAID, SELFPAY ==
[2025-08-27 09:45] LABS: Uric Acid 6.3 mg/dL (3.5-7.2)
== END ==
LOC: OLS.SANC 05:00
PROVIDERS: PCP Family Medicine; Visit Provider Family Medicine
DX: I50.9 Heart failure, unspecified (principal); J44.9 Chronic obstructive pulmonary disease, unspecified; E11.9 Type 2 diabetes mellitus without complications
CPT/HCPCS: 36415; 84550

== ENCOUNTER → 2025-09-27 | Outpatient (REF) | payer MEDICARE, MEDICAID, SELFPAY ==
[2025-09-27 08:04] LABS: Uric Acid 6.2 mg/dL (3.5-7.2)
== END ==
LOC: OLS.SANC 05:00
PROVIDERS: PCP Family Medicine; Visit Provider Internal Medicine
DX: M1A.00X0 Idiopathic chronic gout, unspecified site, without tophus (tophi) (principal)
CPT/HCPCS: 36415; 84550

== ENCOUNTER → 2025-10-02 05:00 | Outpatient (REF) | payer MEDICARE, MEDICAID, SELFPAY ==
--- OUTSIDE RECORDS SUMMARY | 2025-10-02 04:58 | XMS RPT_ITS | CCD ---
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 [address] [place], [address] Calcium [Mass/Vol] 9.0 mg/dL Normal 7.6-11.0 [facility] Comment on above: Order Comment: 111-2 Performed By: #### L 500.4050, L501.2300, L501.9060, L100.0100 #### [facility] [address] [place], [address] Chloride [Moles/Vol] 105 mmol/L Normal 98-108 [facility] Comment on above: Order Comment: 111-2 Performed By: #### L 500.4050, L501.2300, L501.9060, L100.0100 #### [facility] [address] [place], [address] CO2 [Moles/Vol] 20.8 mmol/L Low 21.0-32.0 [facility] Comment on above: Order Comment: 111-2 Performed By: #### L 500.4050, L501.2300, L501.9060, L100.0100 #### [facility] [address] [place], [address] Creatinine [Mass/Vol] 2.55 mg/dL High 0.70-1.20 [facility] Comment on above: Order Comment: 111-2 Performed By: #### L 500.4050, L501.2300, L501.9060, L100.0100 #### [facility] [address] [place], [address] GAP 12 Normal 5-15 [facility] Comment on above: Order Comment: 111-2 Performed By: #### L 500.4050, L501.2300, L501.9060, L100.0100 #### [facility] [address] [place], [address] GFR/1.73 sq M.predicted among non-blacks MDRD (S/P/Bld) [Vol rate/Area] 28 mL/min/{1.73_m2} Low >60 [facility] Comment on above: Order Comment: 111-2 Result Comment: mL/m in/1.73m2 CKD-EPI Creatinine Equation (2020) Performed By: #### L 500.4050, L501.2300, L501.9060, L100.0100 #### [facility] [address] [place], [address] Globulin (S) [Mass/Vol] 2.3 g/dL Normal 2.2-4.2 [facility] Comment on above: Order Comment: 111-2 Performed By: #### L 500.4050, L501.2300, L501.9060, L100.0100 #### [facility] [address] [place], [address] Glucose [Mass/Vol] 128 mg/dL High 70-99 [facility] Comment on above: Order Comment: 111-2 Performed By: #### L 500.4050, L501.2300, L501.9060, L100.0100 #### [facility] [address] [place], [address] Potassium [Moles/Vol] 4.4 mmol/L Normal 3.3-5.1 [facility] Comment on above: Order Comment: 111-2 Performed By: #### L 500.4050, L501.2300, L501.9060, L100.0100 #### [facility] [address] [place], [address] Sodium [Moles/Vol] 137 mmol/L Normal 133-145 [facility] Comment on above: Order Comment: 111-2 Performed By: #### L 500.4050, L501.2300, L501.9060, L100.0100 #### [facility] [address] [place], [address] T PROT 5.9 g/dL Normal 5.9-8.4 [facility] Comment on above: Order Comment: 111-2 Performed By: #### L 500.4050, L501.2300, L501.9060, L100.0100 #### [facility] [address] [place], [place], [address] Urea nitrogen [Mass/Vol] 30 mg/dL High 4-19 [facility] Comment on above: Order Comment: 111-2 Performed By: #### L 500.4050, L501.2300, L501.9060, L100.0100 #### [facility] [address] [place], [address] Eosinophil percentageOrdered By: Alfredo Phipps on 08-14-2025 Eosinophils/100 WBC (Bld) 4.0 % 0-5 [facility] Erythrocyte distribution wid th ratioOrdered By: Alfredo Phipps on 08-14-2025 Erythrocyte distribution width (RBC) [Ratio] 12.8 % 11.6-14.6 [facility] Erythrocyte distribution wid th standard deviationOrdered By: Alfredo Phipps on 08-14-2025 Erythrocyte distribution width (RBC) [Ratio] 41.8 fl 35.1-43.9 [facility] Glomerular filtration rate ( GFR) estimation/1.73 sq m using serum, plasma, or whole bOrdered By: Alfredo Phipps on 08-14-2025 GFR/1.73 sq M.predicted among non-blacks MDRD (S/P/Bld) [Vol rate/Area] 28 mL/min/{1.73_m2} Low >60 [facility] Comment on above: mL/min/1.73m2 CKD-EP I Creatinine Equation (2020) Hematocrit Auto (Bld) [Volum e fraction]Ordered By: Alfredo Phipps on 08-14-2025 Hematocrit (Bld) [Volume fraction] 37.9 % Low 40-54 [facility] Hemoglobin measurementOrdere d By: Alfredo Phipps on 08-14-2025 Hemoglobin (Bld) [Mass/Vol] 12.6 g/dL Low 13.0-16.5 [facility] Immature granulocytes/100 WB C Auto (Bld)Ordered By: Alfredo Phipps on 08-14-2025 Immature granulocytes/100 WBC (Bld) 0.500 % 0.0-0.9 [facility] Comment on above: IG% - Immature Granu locytes (promyelocytes, myelocytes and metamyelocytes) > 1% indicates that a LEFT SHIFT is Present. Laboratory - Chemistry and C hemistry - challengeOrdered By: Alfredo Phipps on 08-14-2025 AST [Catalytic activity/Vol] 14 U/L <38 [facility] Lithiumon 08-14-2025 LI 0.60 mmol/L Normal 0.60-1.20 [facility] Comment on above: Order Comment: 111-2 [id number] Performed By: #### L 500.4050, L501.2300, L501.9060, L100.0100 #### [facility] [address] [place], [place], [address] MCV (mean corpuscular volume ) determinationOrdered By: Alfredo Phipps on 08-14-2025 MCV (RBC) [Entitic vol] 89.8 fL 80-94 [facility] Mean corpuscular hemoglobin (MCH) determinationOrdered By: Alfredo Phipps on 08-14-2025 MCH (RBC) [Entitic mass] 29.9 pg 27.0-32.0 [facility] Mean corpuscular hemoglobin concentration (MCHC) determinationOrdered By: Alfredo Phipps on 08-14-2025 MCHC (RBC) [Mass/Vol] 33.2 g/dL 32-36 [facility] Mean platelet volume determi nationOrdered By: Alfredo Phipps on 08-14-2025 Platelet mean volume (Bld) [Entitic vol] 9.4 fL 6.2-12.0 [facility] Monocyte percentageOrdered B y: Alfredo Phipps on 08-14-2025 Monocytes/100 WBC (Bld) 10.2 % High 0-10 [facility] Neutrophil percentageOrdered By: Alfredo Phipps on 08-14-2025 Neutrophils/100 WBC (Bld) 63.5 % 47-70 [facility] Nucleated red blood cell per centageOrdered By: Alfredo Phipps on 08-14-2025 Nucleated RBC/100 WBC (Bld) [Ratio] 0 % 0-5 [facility] Phosphoruson 08-14-2025 Phosphate [Mass/Vol] 4.9 mg/dL High 2.7-4.5 [facility] Comment on above: Order Comment: 111-2 Performed By: #### L 500.4050, L501.2300, L501.9060, L100.0100 #### [facility] [address] [place], [address] Platelet countOrdered By: Chan Fiore on 08-14-2025 Platelets (Bld) [#/Vol] 248 10*3/uL 150-450 [facility] Potassium measurement (mass/ volume)Ordered By: Alfredo Phipps on 08-14-2025 Potassium (Unsp spec) [Mass/Vol] 4.4 mmol/L 3.3-5.1 [facility] RBC Auto (Bld) [#/Vol]Ordere d By: Alfredo Phipps on 08-14-2025 RBC (Bld) [#/Vol] 4.22 10*6/uL Low 4.6-6.2 [facility] Serum creatinine measurement (mass/volume)Ordered By: Alfredo Phipps on 08-14-2025 Creatinine [Mass/Vol] 2.55 mg/dL High 0.70-1.20 [facility] Serum globulin measurementOr dered By: Alfredo Phipps on 08-14-2025 Globulin (S) [Mass/Vol] 2.3 g/dL 2.2-4.2 [facility] Serum glucose measurement (m ass/volume)Ordered By: Alfredo Phipps on 08-14-2025 Glucose [Mass/Vol] 128 mg/dL High 70-99 [facility] Serum or plasma alanine sesay otransferase (ALT) measurementOrdered By: Alfredo Phipps on 08-14-2025 ALT [Catalytic activity/Vol] 12 U/L <47 [facility] Serum or plasma albumin you urement (mass/volume)Ordered By: Alfredo Phipps on 08-14-2025 Albumin [Mass/Vol] 3.6 g/dL 3.4-4.8 [facility] Serum or plasma albumin/glob ulin mass ratioOrdered By: Alfredo Phipps on 08-14-2025 Albumin/Globulin [Mass ratio] 1.6 {ratio} 0.9-2.4 [facility] Serum or plasma alkaline hal sphatase measurementOrdered By: Alfredo Phipps on 08-14-2025 ALP [Catalytic activity/Vol] 90 U/L 40-129 [facility] Serum or plasma calcium you urement (mass/volume)Ordered By: Alfredo Phipps on 08-14-2025 Calcium [Mass/Vol] 9.0 mg/dL 7.6-11.0 [facility] Serum or plasma urea nitroge n measurement (mass/volume)Ordered By: Alfredo Phipps on 08-14-2025 Urea nitrogen [Mass/Vol] 30 mg/dL High 4-19 [facility] Sodium levelOrdered By: Raffi Phipps on 08-14-2025 Sodium [Moles/Vol] 137 mmol/L 133-145 [facility] Total proteinOrdered By: Jennifer Phipps on 08-14-2025 Protein [Mass/Vol] 5.9 g/dL 5.9-8.4 [facility] White blood cell (WBC) count Ordered By: Alfredo Phipps on 08-14-2025 WBC (Bld) [#/Vol] 9.6 10*3/uL 4.4-11.0 [facility] Hemoglobin A1con 08-09-2025 HbA1c (Bld) [Mass fraction] 6.4 % High <=5.6 [facility] Comment on above: Order Comment: 111-2 Result Comment: Norm al < 5.7 % Prediabetic 5.7 - 6.4 % Diabetic >or= 6.5 % Please note range changes. Performed By: #### L 500.4050, L501.2300, L501.9060, L100.0100 #### [facility] [address] [place], [address] Hemoglobin A1c percentageOrd ered By: Alfredo Phipps on 08-09-2025 HbA1c (Bld) [Mass fraction] 6.4 % High <5.7 [facility] Comment on above: Normal < 5.7 % Predi abetic 5.7 - 6.4 % Diabetic >or= 6.5 % Please note range changes. Lithiumon 08-02-2025 LI 0.61 mmol/L Normal 0.60-1.20 [facility] Comment on above: Order Comment: 111-2 Performed By: #### L 500.4050, L501.2300, L501.9060, L100.0100 #### [facility] [address] [place], [place], [address] Vitamin D,25 Hydroxyon 07-31 Vitamin D 25-OH 33.6 ng/mL Normal 30-100 [facility] Comment on above: Order Comment: 111-2 Result Comment: Moriah min D Status Deficiency: <20 ng/mL (50nmol/L) Insufficiency: 20-30 ng/mL (50-75 nmol/L) Sufficiency: 30-100 ng/mL (75-250 nmol/L) Toxicity: >100 ng/mL (>250 nmol/L) Performed By: #### L 500.4050, L501.2300, L501.9060, L100.0100 #### [facility] [address] [place], [place], [address] Absolute lymphocyte countOrd ered By: Alfredo Phipps on 07-29-2025 Lymphocytes Auto (Unsp spec) [#/Vol] 1.68 10*3/uL 0.83-4.51 [facility] Absolute neutrophil countOrd ered By: Alfredo Phipps on 07-29-2025 Neutrophils (Bld) [#/Vol] 5.6 10*3/uL 2.0-7.7 [facility] Anion gap in Serum or Plasma Ordered By: Alfredo Phipps on 07-29-2025 Anion gap [Moles/Vol] 10 mmol/L 03-28 [facility] Automated lymphocyte count a s percentage of total leukocytesOrdered By: Alfredo Phipps on 07-29-2025 Lymphocytes/100 WBC Auto (Unsp spec) 18.7 % Low - [facility] BUN/creatinine ratioOrdered By: Alfredo Phipps on 07-29-2025 Urea nitrogen/Creatinine [Mass ratio] 11.1 mg/mg - [facility] Basophil percentageOrdered B y: Alfredo Phipps on 09-15-2025 Basophils/100 WBC (Bld) 1.2 % High 0-1 [facility] Bilirubin, totalOrdered By: Alfredo Phipps on 07-29-2025 Bilirubin [Mass/Vol] 0.15 mg/dL 0.00-1.30 [facility] CBC W/Diff, Automatedon 07-15 Absolute Lymph 1.68 X10 3/uL Normal 0.83-4.51 [facility] Comment on above: Order Comment: 111-2 Performed By: #### L 500.4050, L501.2300, L501.9060, L100.0100 #### [facility] [address] [place], [address] Absolute Neut 5.6 X10 3/uL Normal 2.0-7.7 [facility] Comment on above: Order Comment: 111-2 Performed By: #### L 500.4050, L501.2300, L501.9060, L100.0100 #### [facility] [address] [place], [address] Basophils/100 WBC (Bld) 1.2 % High 0-1 [facility] Comment on above: Order Comment: 111-2 Performed By: #### L 500.4050, L501.2300, L501.9060, L100.0100 #### [facility] [address] [place], [address] Eosinophils/100 WBC (Bld) 4.2 % Normal 0-5 [facility] Comment on above: Order Comment: 111-2 Performed By: #### L 500.4050, L501.2300, L501.9060, L100.0100 #### [facility] [address] [place], [address] Erythrocyte distribution width (RBC) [Ratio] 12.6 % Normal 11.6-14.6 [facility] Comment on above: Order Comment: 111-2 Performed By: #### L 500.4050, L501.2300, L501.9060, L100.0100 #### [facility] [address] [place], [address] Hematocrit (Bld) [Volume fraction] 38.6 % Low 40-54 [facility] Comment on above: Order Comment: 111-2 Performed By: #### L 500.4050, L501.2300, L501.9060, L100.0100 #### [facility] [address] [place], [address] Hemoglobin (Bld) [Mass/Vol] 12.9 g/dL Low 13.0-16.5 [facility] Comment on above: Order Comment: 111-2 Performed By: #### L 500.4050, L501.2300, L501.9060, L100.0100 #### [facility] [address] [place], [address] IG% 0.400 Normal 0.0-0.9 [facility] Comment on above: Order Comment: 111-2 Result Comment: IG% - Immature Granulocytes (promyelocytes, myelocytes and metamyelocytes) > 1% indicates that a LEFT SHIFT is Present. Performed By: #### L 500.4050, L501.2300, L501.9060, L100.0100 #### [facility] [address] [place], [address] Lymphocytes/100 WBC (Bld) 18.7 % Low 19-41 [facility] Comment on above: Order Comment: 111-2 Performed By: #### L 500.4050, L501.2300, L501.9060, L100.0100 #### [facility] [address] [place], [address] MCH (RBC) [Entitic mass] 30.0 pg Normal 27.0-32.0 [facility] Comment on above: Order Comment: 111-2 Performed By: #### L 500.4050, L501.2300, L501.9060, L100.0100 #### [facility] [address] [place], [address] MCHC (RBC) [Mass/Vol] 33.4 g/dL Normal 32-36 [facility] Comment on above: Order Comment: 111-2 Performed By: #### L 500.4050, L501.2300, L501.9060, L100.0100 #### [facility] [address] [place], [address] MCV (RBC) [Entitic vol] 89.8 fL Normal 80-94 [facility] Comment on above: Order Comment: 111-2 Performed By: #### L 500.4050, L501.2300, L501.9060, L100.0100 #### [facility] [address] [place], [address] Monocytes/100 WBC (Bld) 13.2 % High 0-10 [facility] Comment on above: Order Comment: 111-2 Performed By: #### L 500.4050, L501.2300, L501.9060, L100.0100 #### [facility] [address] [place], [address] Neutrophils/100 WBC (Bld) 62.3 % Normal 47-70 [facility] Comment on above: Order Comment: 111-2 Performed By: #### L 500.4050, L501.2300, L501.9060, L100.0100 #### [facility] [address] [place], [address] Nucleated RBC (Bld) [#/Vol] 0 10*3/uL Normal 0-5 [facility] Comment on above: Order Comment: 111-2 Performed By: #### L 500.4050, L501.2300, L501.9060, L100.0100 #### [facility] [address] [place], [address] Platelet mean volume (Bld) [Entitic vol] 9.6 fL Normal 6.2-12.0 [facility] Comment on above: Order Comment: 111-2 Performed By: #### L 500.4050, L501.2300, L501.9060, L100.0100 #### [facility] [address] [place], [address] Platelets (Bld) [#/Vol] 231 10*3/uL Normal 150-450 [facility] Comment on above: Order Comment: 111-2 Performed By: #### L 500.4050, L501.2300, L501.9060, L100.0100 #### [facility] [address] [place], [address] RBC (Bld) [#/Vol] 4.30 10*6/uL Low 4.6-6.2 [facility] Comment on above: Order Comment: 111-2 Performed By: #### L 500.4050, L501.2300, L501.9060, L100.0100 #### [facility] [address] [place], [address] RDW SD 41.1 fl Normal 35.1-43.9 [facility] Comment on above: Order Comment: 111-2 Performed By: #### L 500.4050, L501.2300, L501.9060, L100.0100 #### [facility] [address] [place], [address] WBC (Bld) [#/Vol] 9.0 10*3/uL Normal 4.4-11.0 [facility] Comment on above: Order Comment: 111-2 Performed By: #### L 500.4050, L501.2300, L501.9060, L100.0100 #### [facility] [address] [place], [address] Carbon dioxide, total [Moles /volume] in Central venous bloodOrdered By: Alfredo Phipps on 07-29-2025 CO2 [Moles/Vol] 22.2 mmol/L 21.0-32.0 [facility] Chloride assayOrdered By: Chan Fiore on 07-29-2025 Chloride [Moles/Vol] 108 mmol/L 98-108 [facility] Comprehensive Metabolic Prof ilon 07-29-2025 Albumin [Mass/Vol] 3.6 g/dL Normal 3.4-4.8 [facility] Comment on above: Order Comment: 111-2 Performed By: #### L 500.4050, L501.2300, L501.9060, L100.0100 #### [facility] [address] [place], [address] Albumin/Globulin [Mass ratio] 1.5 {ratio} Normal 0.9-2.4 [facility] Comment on above: Order Comment: 111-2 Performed By: #### L 500.4050, L501.2300, L501.9060, L100.0100 #### [facility] [address] [place], [address] ALK PHOS 91 U/L Normal 40-129 [facility] Comment on above: Order Comment: 111-2 Performed By: #### L 500.4050, L501.2300, L501.9060, L100.0100 #### [facility] [address] [place], [address] ALT [Catalytic activity/Vol] 12 U/L Normal <=46 [facility] Comment on above: Order Comment: 111-2 Performed By: #### L 500.4050, L501.2300, L501.9060, L100.0100 #### [facility] [address] [place], [address] AST [Catalytic activity/Vol] 12 U/L Normal <=37 [facility] Comment on above: Order Comment: 111-2 Performed By: #### L 500.4050, L501.2300, L501.9060, L100.0100 #### [facility] [address] [place], [address] Bilirubin [Mass/Vol] 0.15 mg/dL Normal 0.00-1.30 [facility] Comment on above: Order Comment: 111-2 Performed By: #### L 500.4050, L501.2300, L501.9060, L100.0100 #### [facility] [address] [place], [address] BUN/CRE 11.1 RATIO Normal 10-20 [facility] Comment on above: Order Comment: 111-2 Performed By: #### L 500.4050, L501.2300, L501.9060, L100.0100 #### [facility] [address] [place], [address] Calcium [Mass/Vol] 9.2 mg/dL Normal 7.6-11.0 [facility] Comment on above: Order Comment: 111-2 Performed By: #### L 500.4050, L501.2300, L501.9060, L100.0100 #### [facility] [address] [place], [address] Chloride [Moles/Vol] 108 mmol/L Normal 98-108 [facility] Comment on above: Order Comment: 111-2 Performed By: #### L 500.4050, L501.2300, L501.9060, L100.0100 #### [facility] [address] [place], [address] CO2 [Moles/Vol] 22.2 mmol/L Normal 21.0-32.0 [facility] Comment on above: Order Comment: 111-2 Performed By: #### L 500.4050, L501.2300, L501.9060, L100.0100 #### [facility] [address] [place], [address] Creatinine [Mass/Vol] 2.36 mg/dL High 0.70-1.20 [facility] Comment on above: Order Comment: 111-2 Performed By: #### L 500.4050, L501.2300, L501.9060, L100.0100 #### [facility] [address] [place], [address] GAP 10 Normal 5-15 [facility] Comment on above: Order Comment: 111-2 Performed By: #### L 500.4050, L501.2300, L501.9060, L100.0100 #### [facility] [address] [place], [address] GFR/1.73 sq M.predicted among non-blacks MDRD (S/P/Bld) [Vol rate/Area] 30 mL/min/{1.73_m2} Low >60 [facility] Comment on above: Order Comment: 111-2 Result Comment: mL/m in/1.73m2 CKD-EPI Creatinine Equation (2020) Performed By: #### L 500.4050, L501.2300, L501.9060, L100.0100 #### [facility] [address] [place], [address] Globulin (S) [Mass/Vol] 2.4 g/dL Normal 2.2-4.2 [facility] Comment on above: Order Comment: 111-2 Performed By: #### L 500.4050, L501.2300, L501.9060, L100.0100 #### [facility] [address] [place], [address] Glucose [Mass/Vol] 136 mg/dL High 70-99 [facility] Comment on above: Order Comment: 111-2 Performed By: #### L 500.4050, L501.2300, L501.9060, L100.0100 #### [facility] [address] [place], [address] Potassium [Moles/Vol] 4.5 mmol/L Normal 3.3-5.1 [facility] Comment on above: Order Comment: 111-2 Performed By: #### L 500.4050, L501.2300, L501.9060, L100.0100 #### [facility] [address] [place], [address] Sodium [Moles/Vol] 140 mmol/L Normal 133-145 [facility] Comment on above: Order Comment: 111-2 Performed By: #### L 500.4050, L501.2300, L501.9060, L100.0100 #### [facility] [address] [place], [address] T PROT 6.0 g/dL Normal 5.9-8.4 [facility] Comment on above: Order Comment: 111-2 Performed By: #### L 500.4050, L501.2300, L501.9060, L100.0100 #### [facility] [address] [place], [address] Urea nitrogen [Mass/Vol] 26 mg/dL High 4-19 [facility] Comment on above: Order Comment: 111-2 Performed By: #### L 500.4050, L501.2300, L501.9060, L100.0100 #### [facility] [address] [place], [address] Eosinophil percentageOrdered By: Alfredo Phipps on 07-29-2025 Eosinophils/100 WBC (Bld) 4.2 % 0-5 [facility] Erythrocyte distribution wid th ratioOrdered By: Alfredo Phipps on 07-29-2025 Erythrocyte distribution width (RBC) [Ratio] 12.6 % 11.6-14.6 [facility] Erythrocyte distribution wid th standard deviationOrdered By: Alfredo Phipps on 07-29-2025 Erythrocyte distribution width (RBC) [Ratio] 41.1 fl 35.1-43.9 [facility] Glomerular filtration rate ( GFR) estimation/1.73 sq m using serum, plasma, or whole bOrdered By: Alfredo Phipps on 07-29-2025 GFR/1.73 sq M.predicted among non-blacks MDRD (S/P/Bld) [Vol rate/Area] 30 mL/min/{1.73_m2} Low >60 [facility] Comment on above: mL/min/1.73m2 CKD-EP I Creatinine Equation (2020) Hematocrit Auto (Bld) [Volum e fraction]Ordered By: Alfredo Phipps on 07-29-2025 Hematocrit (Bld) [Volume fraction] 38.6 % Low 40-54 [facility] Hemoglobin measurementOrdere d By: Alfredo Phipps on 07-29-2025 Hemoglobin (Bld) [Mass/Vol] 12.9 g/dL Low 13.0-16.5 [facility] Immature granulocytes/100 WB C Auto (Bld)Ordered By: Alfredo Phipps on 07-29-2025 Immature granulocytes/100 WBC (Bld) 0.400 % 0.0-0.9 [facility] Comment on above: IG% - Immature Granu locytes (promyelocytes, myelocytes and metamyelocytes) > 1% indicates that a LEFT SHIFT is Present. Laboratory - Chemistry and C hemistry - challengeOrdered By: Alfredo Phipps on 07-29-2025 AST [Catalytic activity/Vol] 12 U/L <38 [facility] MCV (mean corpuscular volume ) determinationOrdered By: Alfredo Phipps on 07-29-2025 MCV (RBC) [Entitic vol] 89.8 fL 80-94 [facility] Mean corpuscular hemoglobin (MCH) determinationOrdered By: Alfredo Phipps on 07-29-2025 MCH (RBC) [Entitic mass] 30.0 pg 27.0-32.0 [facility] Mean corpuscular hemoglobin concentration (MCHC) determinationOrdered By: Alfredo Phipps on 07-29-2025 MCHC (RBC) [Mass/Vol] 33.4 g/dL 32-36 [facility] Mean platelet volume determi nationOrdered By: Alfredo Phipps on 07-29-2025 Platelet mean volume (Bld) [Entitic vol] 9.6 fL 6.2-12.0 [facility] Monocyte percentageOrdered B y: Alfredo Phipps on 07-29-2025 Monocytes/100 WBC (Bld) 13.2 % High 0-10 [facility] Neutrophil percentageOrdered By: Alfredo Phipps on 07-29-2025 Neutrophils/100 WBC (Bld) 62.3 % 47-70 [facility] Nucleated red blood cell per centageOrdered By: Alfredo Phipps on 07-29-2025 Nucleated RBC/100 WBC (Bld) [Ratio] 0 % 0-5 [facility] Phosphoruson 07-29-2025 Phosphate [Mass/Vol] 4.6 mg/dL High 2.7-4.5 [facility] Comment on above: Order Comment: 111-2 Performed By: #### L 500.4050, L501.2300, L501.9060, L100.0100 #### [facility] [address] [place] [address], [address] Platelet countOrdered By: Chan Fiore on 07-29-2025 Platelets (Bld) [#/Vol] 231 10*3/uL 150-450 [facility] Potassium measurement (mass/ volume)Ordered By: Alfredo Phipps on 07-29-2025 Potassium (Unsp spec) [Mass/Vol] 4.5 mmol/L 3.3-5.1 [facility] RBC Auto (Bld) [#/Vol]Ordere d By: Alfredo Phipps on 07-29-2025 RBC (Bld) [#/Vol] 4.30 10*6/uL Low 4.6-6.2 [facility] Serum creatinine measurement (mass/volume)Ordered By: Alfredo Phipps on 07-29-2025 Creatinine [Mass/Vol] 2.36 mg/dL High 0.70-1.20 [facility] Serum globulin measurementOr dered By: Alfredo Phipps on 07-29-2025 Globulin (S) [Mass/Vol] 2.4 g/dL 2.2-4.2 [facility] Serum glucose measurement (m ass/volume)Ordered By: Alfredo Phipps on 07-29-2025 Glucose [Mass/Vol] 136 mg/dL High 70-99 [facility] Serum or plasma alanine sesay otransferase (ALT) measurementOrdered By: Alfredo Phipps on 07-29-2025 ALT [Catalytic activity/Vol] 12 U/L <47 [facility] Serum or plasma albumin you urement (mass/volume)Ordered By: Alrfedo Phipps on 07-29-2025 Albumin [Mass/Vol] 3.6 g/dL 3.4-4.8 [facility] Serum or plasma albumin/glob ulin mass ratioOrdered By: Alfredo Phipps on 07-29-2025 Albumin/Globulin [Mass ratio] 1.5 {ratio} 0.9-2.4 [facility] Serum or plasma alkaline hal sphatase measurementOrdered By: Alfredo Phipps on 07-29-2025 ALP [Catalytic activity/Vol] 91 U/L 40-129 [facility] Serum or plasma calcium you urement (mass/volume)Ordered By: Alfredo Phipps on 07-29-2025 Calcium [Mass/Vol] 9.2 mg/dL 7.6-11.0 [facility] Serum or plasma urea nitroge n measurement (mass/volume)Ordered By: Alfredo Phipps on 07-29-2025 Urea nitrogen [Mass/Vol] 26 mg/dL High 4-19 [facility] Sodium levelOrdered By: Raffi Phipps on 07-29-2025 Sodium [Moles/Vol] 140 mmol/L 133-145 [facility] Total proteinOrdered By: Jennifer Phipps on 07-29-2025 Protein [Mass/Vol] 6.0 g/dL 5.9-8.4 [facility] White blood cell (WBC) count Ordered By: Alfredo Phipps on 07-29-2025 WBC (Bld) [#/Vol] 9.0 10*3/uL 4.4-11.0 [facility] Lithiumon 07-02-2025 LI 0.56 mmol/L Low 0.60-1.20 [facility] Comment on above: Order Comment: 111.2 UNKNOWN [id number] Performed By: #### L 501.9060 #### [facility] [address] [place], [address] Bilirubin directOrdered By: Adam Ferraro on 07-01-2025 Bilirubin.direct [Mass/Vol] 0.09 mg/dL 0.00-0.30 [facility] Bilirubin, totalOrdered By: Adam Ferraro on 07-01-2025 Bilirubin [Mass/Vol] 0.16 mg/dL 0.00-1.30 [facility] Laboratory - Chemistry and C hemistry - challengeOrdered By: Adam Ferraro on 07-01-2025 AST [Catalytic activity/Vol] 11 U/L <38 [facility] Liver Profileon 07-01-2025 Albumin [Mass/Vol] 3.5 g/dL Normal 3.4-4.8 [facility] Comment on above: Performed By: #### L 500.4050, L501.2300, L501.9060, L100.0100 #### [facility] [address] [place], [address] ALK PHOS 88 U/L Normal 40-129 [facility] Comment on above: Performed By: #### L 500.4050, L501.2300, L501.9060, L100.0100 #### [facility] [address] [place], [address] ALT [Catalytic activity/Vol] 13 U/L Normal <=46 [facility] Comment on above: Performed By: #### L 500.4050, L501.2300, L501.9060, L100.0100 #### [facility] [address] [place], [address] AST [Catalytic activity/Vol] 11 U/L Normal <=37 [facility] Comment on above: Performed By: #### L 500.4050, L501.2300, L501.9060, L100.0100 #### [facility] [address] [place], [address] Bilirubin [Mass/Vol] 0.16 mg/dL Normal 0.00-1.30 [facility] Comment on above: Performed By: #### L 500.4050, L501.2300, L501.9060, L100.0100 #### [facility] [address] [place], [address] Bilirubin.direct [Mass/Vol] 0.09 mg/dL Normal 0.00-0.30 [facility] Comment on above: Performed By: #### L 500.4050, L501.2300, L501.9060, L100.0100 #### [facility] [address] [place], [address] Globulin (S) [Mass/Vol] 2.4 g/dL Normal 2.2-4.2 [facility] Comment on above: Performed By: #### L 500.4050, L501.2300, L501.9060, L100.0100 #### [facility] [address] [place], [address] T PROT 5.8 g/dL Low 5.9-8.4 [facility] Comment on above: Performed By: #### L 500.4050, L501.2300, L501.9060, L100.0100 #### [facility] [address] [place], [address] Serum globulin measurementOr dered By: Adam Ferraro on 07-01-2025 Globulin (S) [Mass/Vol] 2.4 g/dL 2.2-4.2 [facility] Serum or plasma alanine sesay otransferase (ALT) measurementOrdered By: Adam Ferraro on 07-01-2025 ALT [Catalytic activity/Vol] 13 U/L <47 [facility] Serum or plasma albumin you urement (mass/volume)Ordered By: Adam Ferraro on 07-01-2025 Albumin [Mass/Vol] 3.5 g/dL 3.4-4.8 [facility] Serum or plasma alkaline hal sphatase measurementOrdered By: Adam Jasmine on 07-01-2025 ALP [Catalytic activity/Vol] 88 U/L 40-129 [facility] Total proteinOrdered By: Benoit ivey Jasmine on 07-01-2025 Protein [Mass/Vol] 5.8 g/dL Low 5.9-8.4 [facility] Serum or plasma uric acid me asurement (mass/volume)Ordered By: Adam Ferraro on 06-27-2025 Urate [Mass/Vol] 5.8 mg/dL 3.5-7.2 [facility] Comment on above: The drugs N-Acetylcy steine and Metamizole may falsely depress this assay. Uric Acidon 06-27-2025 URIC 5.8 mg/dL Normal 3.5-7.2 [facility] Comment on above: Order Comment: [id number] Result Comment: The drugs N-Acetylcysteine and Metamizole may falsely depress this assay. Performed By: #### L 500.4050, L501.2300, L501.9060, L100.0100 #### [facility] [address] [place], [address] Protein+Creatinine Ratio,Uri neon 06-20-2025 PROT:CRE RATIO 227 mg/g CRE High 0-200 [facility] Comment on above: Order Comment: [id number] Performed By: #### L 500.4050, L501.2300, L501.9060, L100.0100 #### [facility] [address] [place], [address] UR CREAT 33.80 mg/dL Low 39.00-259.0 0 [facility] Comment on above: Order Comment: [id number] Performed By: #### L 500.4050, L501.2300, L501.9060, L100.0100 #### [facility] [address] [place], [address] Random urine creatinine you urement (mass/volume)Ordered By: Alfredo Phipps on 06-20-2025 Creatinine Unsp time (U) [Mass/Vol] 33.80 mg/dL Low 39.00-259.0 0 [facility] Urine protein measurement (m ass/volume)Ordered By: Alfredo Phipps on 06-20-2025 Protein (U) [Mass/Vol] 7.7 mg/dL Normal 0.0-12.0 [facility] Comment on above: Order Comment: 111-2 [id number] Performed By: #### L 500.4050, L501.2300, L501.9060, L100.0100 #### [facility] [address] [place], [address] Urine protein/creatinine mas s ratioOrdered By: Alfredo Phipps on 06-20-2025 Protein/Creatinine (U) [Mass ratio] 227 mg/g CRE High 0-200 [facility] Absolute lymphocyte countOrd ered By: Alfredo Phipps on 06-19-2025 Lymphocytes Auto (Unsp spec) [#/Vol] 1.75 10*3/uL 0.83-4.51 [facility] Absolute neutrophil countOrd ered By: Alfredo Phipps on 06-19-2025 Neutrophils (Bld) [#/Vol] 5.4 10*3/uL 2.0-7.7 [facility] Anion gap in Serum or Plasma Ordered By: Alfredo Phipps on 06-19-2025 Anion gap [Moles/Vol] 13 mmol/L 5-15 [facility] Automated lymphocyte count a s percentage of total leukocytesOrdered By: Alfredo Phipps on 06-19-2025 Lymphocytes/100 WBC Auto (Unsp spec) 20.1 % 19-41 [facility] BUN/creatinine ratioOrdered By: Alfredo Phipps on 06-19-2025 Urea nitrogen/Creatinine [Mass ratio] 11.3 mg/mg 10-20 [facility] Basophil percentageOrdered B y: Alfredo Phipps on 06-19-2025 Basophils/100 WBC (Bld) 1.0 % 0-1 [facility] Bilirubin, totalOrdered By: Alfredo Phipps on 06-19-2025 Bilirubin [Mass/Vol] 0.22 mg/dL 0.00-1.30 [facility] CBC W/Diff, Automatedon 08-0 6-2024 Absolute Lymph 1.75 X10 3/uL Normal 0.83-4.51 [facility] Comment on above: Order Comment: 111-2 Performed By: #### L 500.4050, L501.2300, L501.9060, L100.0100 #### [facility] [address] [place], [address] Absolute Neut 5.4 X10 3/uL Normal 2.0-7.7 [facility] Comment on above: Order Comment: 111-2 Performed By: #### L 500.4050, L501.2300, L501.9060, L100.0100 #### [facility] [address] [place], [address] Basophils/100 WBC (Bld) 1.0 % Normal 0-1 [facility] Comment on above: Order Comment: 111-2 Performed By: #### L 500.4050, L501.2300, L501.9060, L100.0100 #### [facility] [address] [place], [address] Eosinophils/100 WBC (Bld) 6.0 % High 0-5 [facility] Comment on above: Order Comment: 111-2 Performed By: #### L 500.4050, L501.2300, L501.9060, L100.0100 #### [facility] [address] [place], [address] Erythrocyte distribution width (RBC) [Ratio] 12.7 % Normal 11.6-14.6 [facility] Comment on above: Order Comment: 111-2 Performed By: #### L 500.4050, L501.2300, L501.9060, L100.0100 #### [facility] [address] [place], [address] Hematocrit (Bld) [Volume fraction] 39.2 % Low 40-54 [facility] Comment on above: Order Comment: 111-2 Performed By: #### L 500.4050, L501.2300, L501.9060, L100.0100 #### [facility] [address] [place], [address] Hemoglobin (Bld) [Mass/Vol] 12.8 g/dL Low 13.0-16.5 [facility] Comment on above: Order Comment: 111-2 Performed By: #### L 500.4050, L501.2300, L501.9060, L100.0100 #### [facility] [address] [place], [address] IG% 0.500 Normal 0.0-0.9 [facility] Comment on above: Order Comment: 111-2 Result Comment: IG% - Immature Granulocytes (promyelocytes, myelocytes and metamyelocytes) > 1% indicates that a LEFT SHIFT is Present. Performed By: #### L 500.4050, L501.2300, L501.9060, L100.0100 #### [facility] [address] [place], [address] Lymphocytes/100 WBC (Bld) 20.1 % Normal 19-41 [facility] Comment on above: Order Comment: 111-2 Performed By: #### L 500.4050, L501.2300, L501.9060, L100.0100 #### [facility] [address] [place], [address] MCH (RBC) [Entitic mass] 30.0 pg Normal 27.0-32.0 [facility] Comment on above: Order Comment: 111-2 Performed By: #### L 500.4050, L501.2300, L501.9060, L100.0100 #### [facility] [address] [place], [address] MCHC (RBC) [Mass/Vol] 32.7 g/dL Normal 32-36 [facility] Comment on above: Order Comment: 111-2 Performed By: #### L 500.4050, L501.2300, L501.9060, L100.0100 #### [facility] [address] [place], [address] MCV (RBC) [Entitic vol] 91.8 fL Normal 80-94 [facility] Comment on above: Order Comment: 111-2 Performed By: #### L 500.4050, L501.2300, L501.9060, L100.0100 #### [facility] [address] [place], [address] Monocytes/100 WBC (Bld) 10.7 % High 0-10 [facility] Comment on above: Order Comment: 111-2 Performed By: #### L 500.4050, L501.2300, L501.9060, L100.0100 #### [facility] [address] [place], [address] Neutrophils/100 WBC (Bld) 61.7 % Normal 47-70 [facility] Comment on above: Order Comment: 111-2 Performed By: #### L 500.4050, L501.2300, L501.9060, L100.0100 #### [facility] [address] [place], [address] Nucleated RBC (Bld) [#/Vol] 0 10*3/uL Normal 0-5 [facility] Comment on above: Order Comment: 111-2 Performed By: #### L 500.4050, L501.2300, L501.9060, L100.0100 #### [facility] [address] [place], [address] Platelet mean volume (Bld) [Entitic vol] 9.5 fL Normal 6.2-12.0 [facility] Comment on above: Order Comment: 111-2 Performed By: #### L 500.4050, L501.2300, L501.9060, L100.0100 #### [facility] [address] [place], [address] Platelets (Bld) [#/Vol] 247 10*3/uL Normal 150-450 [facility] Comment on above: Order Comment: 111-2 Performed By: #### L 500.4050, L501.2300, L501.9060, L100.0100 #### [facility] [address] [place], [address] RBC (Bld) [#/Vol] 4.27 10*6/uL Low 4.6-6.2 [facility] Comment on above: Order Comment: 111-2 Performed By: #### L 500.4050, L501.2300, L501.9060, L100.0100 #### [facility] [address] [place], [address] RDW SD 42.5 fl Normal 35.1-43.9 [facility] Comment on above: Order Comment: 111-2 Performed By: #### L 500.4050, L501.2300, L501.9060, L100.0100 #### [facility] [address] [place], [address] WBC (Bld) [#/Vol] 8.7 10*3/uL Normal 4.4-11.0 [facility] Comment on above: Order Comment: 111-2 Performed By: #### L 500.4050, L501.2300, L501.9060, L100.0100 #### [facility] [address] [place], [address] Carbon dioxide, total [Moles /volume] in Central venous bloodOrdered By: Alfredo Phipps on 06-19-2025 CO2 [Moles/Vol] 19.9 mmol/L Low 21.0-32.0 [facility] Chloride assayOrdered By: Chan Fiore on 06-19-2025 Chloride [Moles/Vol] 105 mmol/L 98-108 [facility] Comprehensive Metabolic Prof ilon 06-19-2025 Albumin [Mass/Vol] 3.6 g/dL Normal 3.4-4.8 [facility] Comment on above: Order Comment: 111-2 Performed By: #### L 500.4050, L501.2300, L501.9060, L100.0100 #### [facility] [address] [place], [address] Albumin/Globulin [Mass ratio] 1.4 {ratio} Normal 0.9-2.4 [facility] Comment on above: Order Comment: 111-2 Performed By: #### L 500.4050, L501.2300, L501.9060, L100.0100 #### [facility] [address] [place], [address] ALK PHOS 91 U/L Normal 40-129 [facility] Comment on above: Order Comment: 111-2 Performed By: #### L 500.4050, L501.2300, L501.9060, L100.0100 #### [facility] [address] [place], [address] ALT [Catalytic activity/Vol] 8 U/L Normal <=46 [facility] Comment on above: Order Comment: 111-2 Performed By: #### L 500.4050, L501.2300, L501.9060, L100.0100 #### [facility] [address] [place], [address] AST [Catalytic activity/Vol] 14 U/L Normal <=37 [facility] Comment on above: Order Comment: 111-2 Performed By: #### L 500.4050, L501.2300, L501.9060, L100.0100 #### [facility] [address] [place], [address] Bilirubin [Mass/Vol] 0.22 mg/dL Normal 0.00-1.30 [facility] Comment on above: Order Comment: 111-2 Performed By: #### L 500.4050, L501.2300, L501.9060, L100.0100 #### [facility] [address] [place], [address] BUN/CRE 11.3 RATIO Normal 10-20 [facility] Comment on above: Order Comment: 111-2 Performed By: #### L 500.4050, L501.2300, L501.9060, L100.0100 #### [facility] [address] [place], [address] Calcium [Mass/Vol] 9.3 mg/dL Normal 7.6-11.0 [facility] Comment on above: Order Comment: 111-2 Performed By: #### L 500.4050, L501.2300, L501.9060, L100.0100 #### [facility] [address] [place], [address] Chloride [Moles/Vol] 105 mmol/L Normal 98-108 [facility] Comment on above: Order Comment: 111-2 Performed By: #### L 500.4050, L501.2300, L501.9060, L100.0100 #### [facility] [address] [place], [address] CO2 [Moles/Vol] 19.9 mmol/L Low 21.0-32.0 [facility] Comment on above: Order Comment: 111-2 Performed By: #### L 500.4050, L501.2300, L501.9060, L100.0100 #### [facility] [address] [place], [address] Creatinine [Mass/Vol] 2.26 mg/dL High 0.70-1.20 [facility] Comment on above: Order Comment: 111-2 Performed By: #### L 500.4050, L501.2300, L501.9060, L100.0100 #### [facility] [address] [place], [address] GAP 13 Normal 5-15 [facility] Comment on above: Order Comment: 111-2 Performed By: #### L 500.4050, L501.2300, L501.9060, L100.0100 #### [facility] [address] [place], [address] GFR/1.73 sq M.predicted among non-blacks MDRD (S/P/Bld) [Vol rate/Area] 32 mL/min/{1.73_m2} Low >60 [facility] Comment on above: Order Comment: 111-2 Result Comment: mL/m in/1.73m2 CKD-EPI Creatinine Equation (2020) Performed By: #### L 500.4050, L501.2300, L501.9060, L100.0100 #### [facility] [address] [place], [address] Globulin (S) [Mass/Vol] 2.5 g/dL Normal 2.2-4.2 [facility] Comment on above: Order Comment: 111-2 Performed By: #### L 500.4050, L501.2300, L501.9060, L100.0100 #### [facility] [address] [place], [address] Glucose [Mass/Vol] 122 mg/dL High 70-99 [facility] Comment on above: Order Comment: 111-2 Performed By: #### L 500.4050, L501.2300, L501.9060, L100.0100 #### [facility] [address] [place], [address] Potassium [Moles/Vol] 4.3 mmol/L Normal 3.3-5.1 [facility] Comment on above: Order Comment: 111-2 Performed By: #### L 500.4050, L501.2300, L501.9060, L100.0100 #### [facility] [address] [place], [address] Sodium [Moles/Vol] 137 mmol/L Normal 133-145 [facility] Comment on above: Order Comment: 111-2 Performed By: #### L 500.4050, L501.2300, L501.9060, L100.0100 #### [facility] [address] [place], [address] T PROT 6.1 g/dL Normal 5.9-8.4 [facility] Comment on above: Order Comment: 111-2 Performed By: #### L 500.4050, L501.2300, L501.9060, L100.0100 #### [facility] [address] [place], [address] Urea nitrogen [Mass/Vol] 26 mg/dL High 4-19 [facility] Comment on above: Order Comment: 111-2 Performed By: #### L 500.4050, L501.2300, L501.9060, L100.0100 #### [facility] [address] [place], [address] Eosinophil percentageOrdered By: Alfredo Phipps on 06-19-2025 Eosinophils/100 WBC (Bld) 6.0 % High 0-5 [facility] Erythrocyte distribution wid th ratioOrdered By: Alfredo Phipps on 06-19-2025 Erythrocyte distribution width (RBC) [Ratio] 12.7 % 11.6-14.6 [facility] Erythrocyte distribution wid th standard deviationOrdered By: Alfredo Phipps on 06-19-2025 Erythrocyte distribution width (RBC) [Ratio] 42.5 fl 35.1-43.9 [facility] Glomerular filtration rate ( GFR) estimation/1.73 sq m using serum, plasma, or whole bOrdered By: Alfredo Phipps on 06-19-2025 GFR/1.73 sq M.predicted among non-blacks MDRD (S/P/Bld) [Vol rate/Area] 32 mL/min/{1.73_m2} Low >60 [facility] Comment on above: mL/min/1.73m2 CKD-EP I Creatinine Equation (2020) Hematocrit Auto (Bld) [Volum e fraction]Ordered By: Alfredo Phipps on 06-19-2025 Hematocrit (Bld) [Volume fraction] 39.2 % Low 40-54 [facility] Hemoglobin measurementOrdere d By: Alfredo Phipps on 06-19-2025 Hemoglobin (Bld) [Mass/Vol] 12.8 g/dL Low 13.0-16.5 [facility] Immature granulocytes/100 WB C Auto (Bld)Ordered By: Alfredo Phipps on 06-19-2025 Immature granulocytes/100 WBC (Bld) 0.500 % 0.0-0.9 [facility] Comment on above: IG% - Immature Granu locytes (promyelocytes, myelocytes and metamyelocytes) > 1% indicates that a LEFT SHIFT is Present. Laboratory - Chemistry and C hemistry - challengeOrdered By: Alfredo Phipps on 06-19-2025 AST [Catalytic activity/Vol] 14 U/L <38 [facility] Lithiumon 06-19-2025 LI 0.56 mmol/L Low 0.60-1.20 [facility] Comment on above: Order Comment: 111-2 Performed By: #### L 500.4050, L501.2300, L501.9060, L100.0100 #### [facility] [address] [place], [address] MCV (mean corpuscular volume ) determinationOrdered By: Alfredo Phipps on 06-19-2025 MCV (RBC) [Entitic vol] 91.8 fL 80-94 [facility] Mean corpuscular hemoglobin (MCH) determinationOrdered By: Alfredo Phipps on 06-19-2025 MCH (RBC) [Entitic mass] 30.0 pg 27.0-32.0 [facility] Mean corpuscular hemoglobin concentration (MCHC) determinationOrdered By: Alfredo Phipps on 06-19-2025 MCHC (RBC) [Mass/Vol] 32.7 g/dL 32-36 [facility] Mean platelet volume determi nationOrdered By: Alfredo Phipps on 06-19-2025 Platelet mean volume (Bld) [Entitic vol] 9.5 fL 6.2-12.0 [facility] Monocyte percentageOrdered B y: Alfredo Phipps on 06-19-2025 Monocytes/100 WBC (Bld) 10.7 % High 0-10 [facility] Neutrophil percentageOrdered By: Alfredo Phipps on 06-19-2025 Neutrophils/100 WBC (Bld) 61.7 % 47-70 [facility] Nucleated red blood cell per centageOrdered By: Alfredo Phipps on 06-19-2025 Nucleated RBC/100 WBC (Bld) [Ratio] 0 % 0-5 [facility] Phosphoruson 06-19-2025 Phosphate [Mass/Vol] 4.5 mg/dL Normal 2.7-4.5 [facility] Comment on above: Order Comment: 111-2 Performed By: #### L 500.4050, L501.2300, L501.9060, L100.0100 #### [facility] [address] [place], [address] Platelet countOrdered By: Chan Fiore on 06-19-2025 Platelets (Bld) [#/Vol] 247 10*3/uL 150-450 [facility] Potassium measurement (mass/ volume)Ordered By: Alfredo Phipps on 06-19-2025 Potassium (Unsp spec) [Mass/Vol] 4.3 mmol/L 3.3-5.1 [facility] RBC Auto (Bld) [#/Vol]Ordere d By: Alfredo Phipps on 06-19-2025 RBC (Bld) [#/Vol] 4.27 10*6/uL Low 4.6-6.2 [facility] Serum creatinine measurement (mass/volume)Ordered By: Alfredo Phipps on 06-19-2025 Creatinine [Mass/Vol] 2.26 mg/dL High 0.70-1.20 [facility] Serum globulin measurementOr dered By: Alfredo Phipps on 06-19-2025 Globulin (S) [Mass/Vol] 2.5 g/dL 2.2-4.2 [facility] Serum glucose measurement (m ass/volume)Ordered By: Alfredo Phipps on 06-19-2025 Glucose [Mass/Vol] 122 mg/dL High 70-99 [facility] Serum or plasma alanine sesay otransferase (ALT) measurementOrdered By: Alfredo Phipps on 06-19-2025 ALT [Catalytic activity/Vol] 8 U/L <47 [facility] Serum or plasma albumin you urement (mass/volume)Ordered By: Alfredo Phipps on 06-19-2025 Albumin [Mass/Vol] 3.6 g/dL 3.4-4.8 [facility] Serum or plasma albumin/glob ulin mass ratioOrdered By: Alfredo Phipps on 06-19-2025 Albumin/Globulin [Mass ratio] 1.4 {ratio} 0.9-2.4 [facility] Serum or plasma alkaline hal sphatase measurementOrdered By: Alfredo Phipps on 06-19-2025 ALP [Catalytic activity/Vol] 91 U/L 40-129 [facility] Serum or plasma calcium you urement (mass/volume)Ordered By: Alfredo Phipps on 06-19-2025 Calcium [Mass/Vol] 9.3 mg/dL 7.6-11.0 [facility] Serum or plasma urea nitroge n measurement (mass/volume)Ordered By: Alfredo Phipps on 06-19-2025 Urea nitrogen [Mass/Vol] 26 mg/dL High 4-19 [facility] Sodium levelOrdered By: Raffi Phipps on 06-19-2025 Sodium [Moles/Vol] 137 mmol/L 133-145 [facility] Total proteinOrdered By: Jennifer Phipps on 06-19-2025 Protein [Mass/Vol] 6.1 g/dL 5.9-8.4 [facility] White blood cell (WBC) count Ordered By: Alfredo Phipps on 06-19-2025 WBC (Bld) [#/Vol] 8.7 10*3/uL 4.4-11.0 [facility] EST Glomerular Filtration Ra meredith 06-05-2025 GFR/1.73 sq M.predicted among non-blacks MDRD (S/P/Bld) [Vol rate/Area] 30 mL/min/{1.73_m2} Low >60 [facility] Comment on above: Order Comment: 111-2 [id number] Result Comment: mL/m in/1.73m2 CKD-EPI Creatinine Equation (2020) Performed By: #### L 500.4050, L501.2300, L501.9060, L100.0100 #### [facility] [address] [place], [place], [id number] Glomerular filtration rate ( GFR) estimation/1.73 sq m using serum, plasma, or whole bOrdered By: Adam Ferraro on 06-05-2025 GFR/1.73 sq M.predicted among non-blacks MDRD (S/P/Bld) [Vol rate/Area] 30 mL/min/{1.73_m2} Low >60 [facility] Comment on above: mL/min/1.73m2 CKD-EP I Creatinine Equation (2020) Urine Cultureon 05-29-2025 [facility] Mixed Gram Positive Organisms Grant Count 11,000-25,000 [facility] Mixed contaminants. Submit a new specimen if indicated. Normal [facility] Comment on above: Performed By: #### L 500.4050, L501.2300, L501.9060, L100.0100 #### [facility] [address] [place], [place], [address] Absolute lymphocyte countOrd ered By: Adam Ferraro on 05-28-2025 Lymphocytes Auto (Unsp spec) [#/Vol] 2.10 10*3/uL 0.83-4.51 [facility] Absolute neutrophil countOrd ered By: Adam Ferraro on 05-28-2025 Neutrophils (Bld) [#/Vol] 5.2 10*3/uL 2.0-7.7 [facility] Automated lymphocyte count a s percentage of total leukocytesOrdered By: Adam Ferraro on 05-28-2025 Lymphocytes/100 WBC Auto (Unsp spec) 23.5 % 19-41 [facility] Basophil percentageOrdered B y: Adam Ferraro on 05-28-2025 Basophils/100 WBC (Bld) 1.0 % 0-1 [facility] CBC W/Diff, Automatedon 05-14 Absolute Lymph 2.10 X10 3/uL Normal 0.83-4.51 [facility] Comment on above: Order Comment: [id number] Performed By: #### L 500.4050, L501.2300, L501.9060, L100.0100 #### [facility] [address] [place], [address] Absolute Neut 5.2 X10 3/uL Normal 2.0-7.7 [facility] Comment on above: Order Comment: [id number] Performed By: #### L 500.4050, L501.2300, L501.9060, L100.0100 #### [facility] [address] [place], [address] Basophils/100 WBC (Bld) 1.0 % Normal 0-1 [facility] Comment on above: Order Comment: [id number] Performed By: #### L 500.4050, L501.2300, L501.9060, L100.0100 #### [facility] [address] [place], [address] Eosinophils/100 WBC (Bld) 5.5 % High 0-5 [facility] Comment on above: Order Comment: [id number] Performed By: #### L 500.4050, L501.2300, L501.9060, L100.0100 #### [facility] [address] [place], [address] Erythrocyte distribution width (RBC) [Ratio] 12.5 % Normal 11.6-14.6 [facility] Comment on above: Order Comment: 111-2 [id number] Performed By: #### L 500.4050, L501.2300, L501.9060, L100.0100 #### [facility] [address] [place], [address] Hematocrit (Bld) [Volume fraction] 39.7 % Low 40-54 [facility] Comment on above: Order Comment: [id number] Performed By: #### L 500.4050, L501.2300, L501.9060, L100.0100 #### [facility] [address] [place], [address] Hemoglobin (Bld) [Mass/Vol] 13.3 g/dL Normal 13.0-16.5 [facility] Comment on above: Order Comment: [id number] Performed By: #### L 500.4050, L501.2300, L501.9060, L100.0100 #### [facility] [address] [place], [address] IG% 0.700 Normal 0.0-0.9 [facility] Comment on above: Order Comment: [id number] Result Comment: IG% - Immature Granulocytes (promyelocytes, myelocytes and metamyelocytes) > 1% indicates that a LEFT SHIFT is Present. Performed By: #### L 500.4050, L501.2300, L501.9060, L100.0100 #### [facility] [address] [place], [address] Lymphocytes/100 WBC (Bld) 23.5 % Normal 19-41 [facility] Comment on above: Order Comment: 20250814 Performed By: #### L 500.4050, L501.2300, L501.9060, L100.0100 #### [facility] [address] [place], [address] MCH (RBC) [Entitic mass] 30.2 pg Normal 27.0-32.0 [facility] Comment on above: Order Comment: 20250814 Performed By: #### L 500.4050, L501.2300, L501.9060, L100.0100 #### [facility] [address] [place], [address] MCHC (RBC) [Mass/Vol] 33.5 g/dL Normal 32-36 [facility] Comment on above: Order Comment: 20250814 Performed By: #### L 500.4050, L501.2300, L501.9060, L100.0100 #### [facility] [address] [place], [address] MCV (RBC) [Entitic vol] 90.0 fL Normal 80-94 [facility] Comment on above: Order Comment: [id number] Performed By: #### L 500.4050, L501.2300, L501.9060, L100.0100 #### [facility] [address] [place], [address] Monocytes/100 WBC (Bld) 11.1 % High 0-10 [facility] Comment on above: Order Comment: 20250814 Performed By: #### L 500.4050, L501.2300, L501.9060, L100.0100 #### [facility] [address] [place], [address] Neutrophils/100 WBC (Bld) 58.2 % Normal 47-70 [facility] Comment on above: Order Comment: 20250814 Performed By: #### L 500.4050, L501.2300, L501.9060, L100.0100 #### [facility] [address] [place], [address] Nucleated RBC (Bld) [#/Vol] 0 10*3/uL Normal 0-5 [facility] Comment on above: Order Comment: [id number] 0100 Performed By: #### L 500.4050, L501.2300, L501.9060, L100.0100 #### [facility] [address] [place], [address] Platelet mean volume (Bld) [Entitic vol] 9.2 fL Normal 6.2-12.0 [facility] Comment on above: Order Comment: [id number] 010 Performed By: #### L 500.4050, L501.2300, L501.9060, L100.0100 #### [facility] [address] [place], [address] Platelets (Bld) [#/Vol] 235 10*3/uL Normal 150-450 [facility] Comment on above: Order Comment: 20250814 Performed By: #### L 500.4050, L501.2300, L501.9060, L100.0100 #### [facility] [address] [place], [address] RBC (Bld) [#/Vol] 4.41 10*6/uL Low 4.6-6.2 [facility] Comment on above: Order Comment: 20250814 Performed By: #### L 500.4050, L501.2300, L501.9060, L100.0100 #### [facility] [address] [place], [address] RDW SD 41.1 fl Normal 35.1-43.9 [facility] Comment on above: Order Comment: [id number] Performed By: #### L 500.4050, L501.2300, L501.9060, L100.0100 #### [facility] [address] [place], [address] WBC (Bld) [#/Vol] 8.9 10*3/uL Normal 4.4-11.0 [facility] Comment on above: Order Comment: 111-2 [id number] Performed By: #### L 500.4050, L501.2300, L501.9060, L100.0100 #### [facility] [address] [place], [address] Eosinophil percentageOrdered By: Adam Ferraro on 05-28-2025 Eosinophils/100 WBC (Bld) 5.5 % High 0-5 [facility] Erythrocyte distribution wid th ratioOrdered By: Adam Ferraro on 05-28-2025 Erythrocyte distribution width (RBC) [Ratio] 12.5 % 11.6-14.6 [facility] Erythrocyte distribution wid th standard deviationOrdered By: Adam Ferraro on 05-28-2025 Erythrocyte distribution width (RBC) [Ratio] 41.1 fl 35.1-43.9 [facility] Hematocrit Auto (Bld) [Volum e fraction]Ordered By: Adam Ferraro on 05-28-2025 Hematocrit (Bld) [Volume fraction] 39.7 % Low 40-54 [facility] Hemoglobin measurementOrdere d By: Adam Ferraro on 05-28-2025 Hemoglobin (Bld) [Mass/Vol] 13.3 g/dL 13.0-16.5 [facility] Immature granulocytes/100 WB C Auto (Bld)Ordered By: Adam Ferraro on 05-28-2025 Immature granulocytes/100 WBC (Bld) 0.700 % 0.0-0.9 [facility] Comment on above: IG% - Immature Granu locytes (promyelocytes, myelocytes and metamyelocytes) > 1% indicates that a LEFT SHIFT is Present. MCV (mean corpuscular volume ) determinationOrdered By: Adam Ferraro on 05-28-2025 MCV (RBC) [Entitic vol] 90.0 fL 80-94 [facility] Mean corpuscular hemoglobin (MCH) determinationOrdered By: Adam Ferraro 05-28-2025 MCH (RBC) [Entitic mass] 30.2 pg 27.0-32.0 [facility] Mean corpuscular hemoglobin concentration (MCHC) determinationOrdered By: Adam Ferraro on 05-28-2025 MCHC (RBC) [Mass/Vol] 33.5 g/dL 32-36 [facility] Mean platelet volume determi nationOrdered By: Adam Ferraro on 05-28-2025 Platelet mean volume (Bld) [Entitic vol] 9.2 fL 6.2-12.0 [facility] Monocyte percentageOrdered B y: Adam Ferraro on 05-28-2025 Monocytes/100 WBC (Bld) 11.1 % High 0-10 [facility] Neutrophil percentageOrdered By: Adam Ferraro on 05-28-2025 Neutrophils/100 WBC (Bld) 58.2 % 47-70 [facility] Nucleated red blood cell per centageOrdered By: Adam Ferraro on 05-28-2025 Nucleated RBC/100 WBC (Bld) [Ratio] 0 % 0-5 [facility] Platelet countOrdered By: Sabino Ferraro on 05-28-2025 Platelets (Bld) [#/Vol] 235 10*3/uL 150-450 [facility] RBC Auto (Bld) [#/Vol]Ordere d By: Adam Ferraro on 05-28-2025 RBC (Bld) [#/Vol] 4.41 10*6/uL Low 4.6-6.2 [facility] White blood cell (WBC) count Ordered By: Adam Ferraro on 05-28-2025 WBC (Bld) [#/Vol] 8.9 10*3/uL 4.4-11.0 [facility] Protein+Creatinine Ratio,Uri neon 05-27-2025 PROT:CRE RATIO 172 mg/g CRE Normal 0-200 [facility] Comment on above: Performed By: #### L 500.4050, L501.2300, L501.9060, L100.0100 #### [facility] [address] [place], [place], [id number] PROTEIN,UR.RAN. < 6.0 Normal 0.0-12.0 [facility] Comment on above: Performed By: #### L 500.4050, L501.2300, L501.9060, L100.0100 #### [facility] [address] [place], [address] UR CREAT 25.50 mg/dL Low 39.00-259.0 0 [facility] Comment on above: Performed By: #### L 500.4050, L501.2300, L501.9060, L100.0100 #### [facility] [address] [place], [address] Uric Acidon 05-27-2025 URIC 6.3 mg/dL Normal 3.5-7.2 [facility] Comment on above: Order Comment: URIC ACID ADDED TO 05/24/25 LABWORK Result Comment: The drugs N-Acetylcysteine and Metamizole may falsely depress this assay. Performed By: #### L 100.0500, L500.4050, L501.1400 #### [facility] [address] [place], [address] Urinalysis, Routine (Dipstic k)on 05-27-2025 BILIRUBIN URINE Negative Normal Negative [facility] Comment on above: Order Comment: 20250814 Performed By: #### L 500.4050, L501.2300, L501.9060, L100.0100 #### [facility] [address] [place], [address] Clarity (U) Clear Normal Clear [facility] Comment on above: Order Comment: 20250814 Performed By: #### L 500.4050, L501.2300, L501.9060, L100.0100 #### [facility] [address] [place], [address] Color (U) Straw Normal Yellow [facility] Comment on above: Order Comment: 20250814 Performed By: #### L 500.4050, L501.2300, L501.9060, L100.0100 #### [facility] [address] [place], [address] GLUCOSE, UR Normal Normal Normal [facility] Comment on above: Order Comment: 20250814 Performed By: #### L 500.4050, L501.2300, L501.9060, L100.0100 #### [facility] [address] [place], [address] KETONE UR Negative Normal Negative [facility] Comment on above: Order Comment: 20250814 Performed By: #### L 500.4050, L501.2300, L501.9060, L100.0100 #### [facility] [address] [place], [address] LEUK ESTERASE 500 /ul Abnormal Negative [facility] Comment on above: Order Comment: 20250814 Performed By: #### L 500.4050, L501.2300, L501.9060, L100.0100 #### [facility] [address] [place], [address] Nitrite Ql (U) Negative Normal Negative [facility] Comment on above: Order Comment: 20250814 Performed By: #### L 500.4050, L501.2300, L501.9060, L100.0100 #### [facility] [address] [place], [address] OCCULT BLOOD-UR Negative Normal Negative [facility] Comment on above: Order Comment: 20250814 Performed By: #### L 500.4050, L501.2300, L501.9060, L100.0100 #### [facility] [address] [place], [address] pH UR 6.5 Normal 5.0 - 8.0 [facility] Comment on above: Order Comment: 20250814 Performed By: #### L 500.4050, L501.2300, L501.9060, L100.0100 #### [facility] [address] [place], [address] PROT DIPSTX Negative Normal Negative [facility] Comment on above: Order Comment: 20250814 Performed By: #### L 500.4050, L501.2300, L501.9060, L100.0100 #### [facility] [address] [place], [address] SP.GR. DIPSTX 1.005 Normal 1.002-1.030 [facility] Comment on above: Order Comment: 20250814 Performed By: #### L 500.4050, L501.2300, L501.9060, L100.0100 #### [facility] [address] [place], [address] UROBILI Normal Normal Normal [facility] Comment on above: Order Comment: 20250814 Performed By: #### L 500.4050, L501.2300, L501.9060, L100.0100 #### [facility] [address] [place], [address] Bilirubin Test strip Ql (U)O rdered By: Adam Ferraro on 05-26-2025 Bilirubin Ql (U) Negative Negative [facility] Ketones Test strip Ql (U)Ord ered By: Adam Ferraro on 05-26-2025 Ketones Ql (U) Negative Negative [facility] Nitrite Test strip Ql (U)Ord ered By: Adam Ferraro on 05-26-2025 Nitrite Ql (U) Negative Negative [facility] Protein Test strip Ql (U)Ord ered By: Adam Ferraro on 05-26-2025 Protein Ql (U) Negative Negative [facility] Random urine creatinine you urement (mass/volume)Ordered By: Adam Ferraro on 05-26-2025 Creatinine Unsp time (U) [Mass/Vol] 25.50 mg/dL Low 39.00-259.0 0 [facility] Urine clarityOrdered By: Benoit Ferraro on 05-26-2025 Clarity (U) Clear Clear [facility] Urine color determinationOrd ered By: Adam Ferraro on 05-26-2025 Color (U) Straw Yellow [facility] Urine cultureOrdered By: Benoit Ferraro on 05-26-2025 Bacteria identified Cx Nom (U) Positive Abnormal [facility] Urine glucose detectionOrder ed By: Adam Ferraro on 05-26-2025 Glucose Ql (U) Normal mg/dl Normal [facility] Urine leukocyte esterase det ection by dipstickOrdered By: Adam Ferraro on 05-26-2025 Leukocyte esterase Test strip Ql (U) 500 /ul High Negative [facility] Urine pHOrdered By: Adam Ferraro on 05-26-2025 pH (U) 6.5 [pH] 5.0 - 8.0 [facility] Urine protein measurement (m ass/volume)Ordered By: Adam Ferraro on 05-26-2025 Protein (U) [Mass/Vol] mg/dL 0.0-12.0 [facility] Urine protein/creatinine mas s ratioOrdered By: Adam Ferraro on 05-26-2025 Protein/Creatinine (U) [Mass ratio] 172 mg/g CRE 0-200 [facility] Urine specific gravity measu rementOrdered By: Adam Ferraro on 05-26-2025 Specific gravity (U) [Rel density] 1.005 1.002-1.030 [facility] Urine urobilinogen measureme ntOrdered By: Adam Ferraro on 05-26-2025 Urobilinogen Ql (U) Normal mg/dl Normal [facility] Anion gap in Serum or Plasma Ordered By: Adam Ferraro on 05-24-2025 Anion gap [Moles/Vol] 10 mmol/L 5-15 [facility] BUN/creatinine ratioOrdered By: Adam Ferraro on 05-24-2025 Urea nitrogen/Creatinine [Mass ratio] 11.9 mg/mg 10-20 [facility] Bilirubin, totalOrdered By: Adam Ferraro on 05-24-2025 Bilirubin [Mass/Vol] 0.15 mg/dL 0.00-1.30 [facility] CBC-Complete Blood Cnt No Di ffon 05-24-2025 Erythrocyte distribution width (RBC) [Ratio] 12.7 % Normal 11.6-14.6 [facility] Comment on above: Order Comment: 111.2 Performed By: #### L 100.0500, L500.4050, L501.1400 #### [facility] [address] [place], [address] Hematocrit (Bld) [Volume fraction] 39.2 % Low 40-54 [facility] Comment on above: Order Comment: 111.2 Performed By: #### L 100.0500, L500.4050, L501.1400 #### [facility] [address] [place], [address] Hemoglobin (Bld) [Mass/Vol] 12.9 g/dL Low 13.0-16.5 [facility] Comment on above: Order Comment: 111.2 Performed By: #### L 100.0500, L500.4050, L501.1400 #### [facility] [address] [place], [address] MCH (RBC) [Entitic mass] 30.1 pg Normal 27.0-32.0 [facility] Comment on above: Order Comment: 111.2 Performed By: #### L 100.0500, L500.4050, L501.1400 #### [facility] [address] [place], [address] MCHC (RBC) [Mass/Vol] 32.9 g/dL Normal 32-36 [facility] Comment on above: Order Comment: 111.2 Performed By: #### L 100.0500, L500.4050, L501.1400 #### [facility] [address] [place], [address] MCV (RBC) [Entitic vol] 91.6 fL Normal 80-94 [facility] Comment on above: Order Comment: 111.2 Performed By: #### L 100.0500, L500.4050, L501.1400 #### [facility] [address] [place], [address] Platelet mean volume (Bld) [Entitic vol] 9.2 fL Normal 6.2-12.0 [facility] Comment on above: Order Comment: 111.2 Performed By: #### L 100.0500, L500.4050, L501.1400 #### [facility] [address] [place], [address] Platelets (Bld) [#/Vol] 247 10*3/uL Normal 150-450 [facility] Comment on above: Order Comment: 111.2 Performed By: #### L 100.0500, L500.4050, L501.1400 #### [facility] [address] [place], [address] RBC (Bld) [#/Vol] 4.28 10*6/uL Low 4.6-6.2 [facility] Comment on above: Order Comment: 111.2 Performed By: #### L 100.0500, L500.4050, L501.1400 #### [facility] [address] [place], [address] RDW SD 42.1 fl Normal 35.1-43.9 [facility] Comment on above: Order Comment: 111.2 Performed By: #### L 100.0500, L500.4050, L501.1400 #### [facility] [address] [place], [address] WBC (Bld) [#/Vol] 10.3 10*3/uL Normal 4.4-11.0 [facility] Comment on above: Order Comment: 111.2 Performed By: #### L 100.0500, L500.4050, L501.1400 #### [facility] [address] [place], [address] Carbon dioxide, total [Moles /volume] in Central venous bloodOrdered By: Adam Ferraro on 05-24-2025 CO2 [Moles/Vol] 21.9 mmol/L 21.0-32.0 [facility] Chloride assayOrdered By: Sabino Ferraro on 05-24-2025 Chloride [Moles/Vol] 107 mmol/L 98-108 [facility] Comprehensive Metabolic Prof ilon 05-24-2025 Albumin [Mass/Vol] 3.7 g/dL Normal 3.4-4.8 [facility] Comment on above: Order Comment: 111.2 Performed By: #### L 100.0500, L500.4050, L501.1400 #### [facility] [address] [place], [address] Albumin/Globulin [Mass ratio] 1.6 {ratio} Normal 0.9-2.4 [facility] Comment on above: Order Comment: 111.2 Performed By: #### L 100.0500, L500.4050, L501.1400 #### [facility] [address] [place], [address] ALK PHOS 80 U/L Normal 40-129 [facility] Comment on above: Order Comment: 111.2 Performed By: #### L 100.0500, L500.4050, L501.1400 #### [facility] [address] [place], [address] ALT [Catalytic activity/Vol] 10 U/L Normal <=46 [facility] Comment on above: Order Comment: 111.2 Performed By: #### L 100.0500, L500.4050, L501.1400 #### [facility] [address] [place], [address] AST [Catalytic activity/Vol] 12 U/L Normal <=37 [facility] Comment on above: Order Comment: 111.2 Performed By: #### L 100.0500, L500.4050, L501.1400 #### [facility] [address] [place], [address] Bilirubin [Mass/Vol] 0.15 mg/dL Normal 0.00-1.30 [facility] Comment on above: Order Comment: 111.2 Performed By: #### L 100.0500, L500.4050, L501.1400 #### [facility] [address] [place], [address] BUN/CRE 11.9 RATIO Normal 10-20 [facility] Comment on above: Order Comment: 111.2 Performed By: #### L 100.0500, L500.4050, L501.1400 #### [facility] [address] [place], [address] Calcium [Mass/Vol] 9.2 mg/dL Normal 7.6-11.0 [facility] Comment on above: Order Comment: 111.2 Performed By: #### L 100.0500, L500.4050, L501.1400 #### [facility] [address] [place], [address] Chloride [Moles/Vol] 107 mmol/L Normal 98-108 [facility] Comment on above: Order Comment: 111.2 Performed By: #### L 100.0500, L500.4050, L501.1400 #### [facility] [address] [place], [address] CO2 [Moles/Vol] 21.9 mmol/L Normal 21.0-32.0 [facility] Comment on above: Order Comment: 111.2 Performed By: #### L 100.0500, L500.4050, L501.1400 #### [facility] [address] [place], [address] Creatinine [Mass/Vol] 2.10 mg/dL High 0.70-1.20 [facility] Comment on above: Order Comment: 111.2 Performed By: #### L 100.0500, L500.4050, L501.1400 #### [facility] [address] [place], [address] GAP 10 Normal 5-15 [facility] Comment on above: Order Comment: 111.2 Performed By: #### L 100.0500, L500.4050, L501.1400 #### [facility] [address] [place], [address] GFR/1.73 sq M.predicted among non-blacks MDRD (S/P/Bld) [Vol rate/Area] 35 mL/min/{1.73_m2} Low >60 [facility] Comment on above: Order Comment: 111.2 Result Comment: mL/m in/1.73m2 CKD-EPI Creatinine Equation (2020) Performed By: #### L 100.0500, L500.4050, L501.1400 #### [facility] [address] [place], [address] Globulin (S) [Mass/Vol] 2.3 g/dL Normal 2.2-4.2 [facility] Comment on above: Order Comment: 111.2 Performed By: #### L 100.0500, L500.4050, L501.1400 #### [facility] [address] [place], [address] Glucose [Mass/Vol] 116 mg/dL High 70-99 [facility] Comment on above: Order Comment: 111.2 Performed By: #### L 100.0500, L500.4050, L501.1400 #### [facility] [address] [place], [address] Potassium [Moles/Vol] 4.4 mmol/L Normal 3.3-5.1 [facility] Comment on above: Order Comment: 111.2 Performed By: #### L 100.0500, L500.4050, L501.1400 #### [facility] [address] [place], [address] Sodium [Moles/Vol] 139 mmol/L Normal 133-145 [facility] Comment on above: Order Comment: 111.2 Performed By: #### L 100.0500, L500.4050, L501.1400 #### [facility] [address] [place], [address] T PROT 6.0 g/dL Normal 5.9-8.4 [facility] Comment on above: Order Comment: 111.2 Performed By: #### L 100.0500, L500.4050, L501.1400 #### [facility] [address] [place], [address] Urea nitrogen [Mass/Vol] 25 mg/dL High 4-19 [facility] [facility] Comment on above: Order Comment: 111.2 Performed By: #### L 100.0500, L500.4050, L501.1400 #### [facility] [address] [place], [address] Erythrocyte distribution wid th ratioOrdered By: Adam Ferraro on 05-24-2025 Erythrocyte distribution width (RBC) [Ratio] 12.7 % 11.6-14.6 [facility] Erythrocyte distribution wid th standard deviationOrdered By: Adam Ferraro on 05-24-2025 Erythrocyte distribution width (RBC) [Ratio] 42.1 fl 35.1-43.9 [facility] Glomerular filtration rate ( GFR) estimation/1.73 sq m using serum, plasma, or whole bOrdered By: Adam Ferraro on 05-24-2025 GFR/1.73 sq M.predicted among non-blacks MDRD (S/P/Bld) [Vol rate/Area] 35 mL/min/{1.73_m2} Low >60 [facility] Comment on above: mL/min/1.73m2 CKD-EP I Creatinine Equation (2020) Hematocrit Auto (Bld) [Volum e fraction]Ordered By: Adam Ferraro on 05-24-2025 Hematocrit (Bld) [Volume fraction] 39.2 % Low 40-54 [facility] Hemoglobin measurementOrdere d By: Adam Ferraro on 05-24-2025 Hemoglobin (Bld) [Mass/Vol] 12.9 g/dL Low 13.0-16.5 [facility] - Chemistry and C hemistry - challengeOrdered By: Adam Ferraro on 05-24-2025 AST [Catalytic activity/Vol] 12 U/L <38 [facility] MCV (mean corpuscular volume ) determinationOrdered By: Adam Ferraro on 05-24-2025 MCV (RBC) [Entitic vol] 91.6 fL 80-94 [facility] Mean corpuscular hemoglobin (MCH) determinationOrdered By: Adam Ferraro on 05-24-2025 MCH (RBC) [Entitic mass] 30.1 pg 27.0-32.0 [facility] Mean corpuscular hemoglobin concentration (MCHC) determinationOrdered By: Adam Ferraro on 05-24-2025 MCHC (RBC) [Mass/Vol] 32.9 g/dL 32-36 [facility] Mean platelet volume determi nationOrdered By: Adam Ferraro on 05-24-2025 Platelet mean volume (Bld) [Entitic vol] 9.2 fL 6.2-12.0 [facility] Platelet countOrdered By: Sabino Ferraro on 05-24-2025 Platelets (Bld) [#/Vol] 247 10*3/uL 150-450 [facility] Potassium measurement (mass/ volume)Ordered By: Adam Ferraro on 05-24-2025 Potassium (Unsp spec) [Mass/Vol] 4.4 mmol/L 3.3-5.1 [facility] RBC Auto (Bld) [#/Vol]Ordere d By: Adam Ferraro on 05-24-2025 RBC (Bld) [#/Vol] 4.28 10*6/uL Low 4.6-6.2 [facility] Serum creatinine measurement (mass/volume)Ordered By: Adam Ferraro on 05-24-2025 Creatinine [Mass/Vol] 2.10 mg/dL High 0.70-1.20 [facility] Serum globulin measurementOr dered By: Adam Ferraro on 05-24-2025 Globulin (S) [Mass/Vol] 2.3 g/dL 2.2-4.2 [facility] Serum glucose measurement (m ass/volume)Ordered By: Adam Ferraro on 05-24-2025 Glucose [Mass/Vol] 116 mg/dL High 70-99 [facility] Serum or plasma alanine sesay otransferase (ALT) measurementOrdered By: Adam Ferraro on 05-24-2025 ALT [Catalytic activity/Vol] 10 U/L <47 [facility] Serum or plasma albumin you urement (mass/volume)Ordered By: Adam Ferraro on 05-24-2025 Albumin [Mass/Vol] 3.7 g/dL 3.4-4.8 [facility] Serum or plasma albumin/glob ulin mass ratioOrdered By: Adam Ferraro on 05-24-2025 Albumin/Globulin [Mass ratio] 1.6 {ratio} 0.9-2.4 [facility] Serum or plasma alkaline hal sphatase measurementOrdered By: Adam Ferraro on 05-24-2025 ALP [Catalytic activity/Vol] 80 U/L 40-129 [facility] Serum or plasma calcium you urement (mass/volume)Ordered By: Adam Ferraro on 05-24-2025 Calcium [Mass/Vol] 9.2 mg/dL 7.6-11.0 [facility] Serum or plasma urea nitroge n measurement (mass/volume)Ordered By: Adam Ferraro on 05-24-2025 Urea nitrogen [Mass/Vol] 25 mg/dL High 4-19 [facility] Serum or plasma uric acid me asurement (mass/volume)Ordered By: Adam Ferraro on 05-24-2025 Urate [Mass/Vol] 6.3 mg/dL 3.5-7.2 [facility] Comment on above: The drugs N-Acetylcy steine and Metamizole may falsely depress this assay. Sodium levelOrdered By: Spike Ferraro on 05-24-2025 Sodium [Moles/Vol] 139 mmol/L 133-145 [facility] Total proteinOrdered By: Benoit Ferraro on 05-24-2025 Protein [Mass/Vol] 6.0 g/dL 5.9-8.4 [facility] White blood cell (WBC) count Ordered By: Adam Ferraro on 05-24-2025 WBC (Bld) [#/Vol] 10.3 10*3/uL 4.4-11.0 [facility] Lithiumon 05-02-2025 LI 0.53 mmol/L Low 0.60-1.20 [facility] Comment on above: Order Comment: 111-2 Performed By: #### L 500.4050, L501.2300, L501.9060, L100.0100 #### [facility] [address] [place], [place], [address] Serum or plasma uric acid me asurement (mass/volume)Ordered By: Alfredo Phipps on 04-26-2025 Urate [Mass/Vol] 6.3 mg/dL 3.5-7.2 [facility] Comment on above: The drugs N-Acetylcy steine and Metamizole may falsely depress this assay. Uric Acidon 04-26-2025 URIC 6.3 mg/dL Normal 3.5-7.2 [facility] Comment on above: Order Comment: 111-2 Result Comment: The drugs N-Acetylcysteine and Metamizole may falsely depress this assay. Performed By: #### L 501.1400 #### [facility] [address] [place], [place], [address] Absolute lymphocyte countOrd ered By: Adam Ferraro on 04-24-2025 Lymphocytes Auto (Unsp spec) [#/Vol] 2.17 10*3/uL 0.83-4.51 [facility] Absolute neutrophil countOrd ered By: Adam Ferraro on 04-24-2025 Neutrophils (Bld) [#/Vol] 6.4 10*3/uL 2.0-7.7 [facility] Anion gap in Serum or Plasma Ordered By: Adam Ferraro on 04-24-2025 Anion gap [Moles/Vol] 12 mmol/L 5-15 [facility] Automated lymphocyte count a s percentage of total leukocytesOrdered By: Adam Ferraro on 04-24-2025 Lymphocytes/100 WBC Auto (Unsp spec) 21.0 % - [facility] BUN/creatinine ratioOrdered By: Adam Ferraro on 04-24-2025 Urea nitrogen/Creatinine [Mass ratio] 10.5 mg/mg 10-20 [facility] Basophil percentageOrdered B y: Adam Ferraro on 04-24-2025 Basophils/100 WBC (Bld) 1.1 % High 0-1 [facility] Bilirubin, totalOrdered By: Adam Ferraro on 04-24-2025 Bilirubin [Mass/Vol] 0.16 mg/dL 0.00-1.30 [facility] CBC W/Diff, Automatedon 04-14 Absolute Lymph 2.17 X10 3/uL Normal 0.83-4.51 [facility] Comment on above: Order Comment: 111.2 Performed By: #### L 501.2300, L500.4050, L501.9060, L100.0100 #### [facility] [address] [place], [address] Absolute Neut 6.4 X10 3/uL Normal 2.0-7.7 [facility] Comment on above: Order Comment: 111.2 Performed By: #### L 501.2300, L500.4050, L501.9060, L100.0100 #### [facility] [address] [place], [address] Basophils/100 WBC (Bld) 1.1 % High 0-1 [facility] Comment on above: Order Comment: 111.2 Performed By: #### L 501.2300, L500.4050, L501.9060, L100.0100 #### [facility] [address] [place], [address] Eosinophils/100 WBC (Bld) 5.1 % High 0-5 [facility] Comment on above: Order Comment: 111.2 Performed By: #### L 501.2300, L500.4050, L501.9060, L100.0100 #### [facility] [address] [place], [address] Erythrocyte distribution width (RBC) [Ratio] 13.1 % Normal 11.6-14.6 [facility] Comment on above: Order Comment: 111.2 Performed By: #### L 501.2300, L500.4050, L501.9060, L100.0100 #### [facility] [address] [place], [address] Hematocrit (Bld) [Volume fraction] 38.2 % Low 40-54 [facility] Comment on above: Order Comment: 111.2 Performed By: #### L 501.2300, L500.4050, L501.9060, L100.0100 #### [facility] [address] [place], [address] Hemoglobin (Bld) [Mass/Vol] 12.7 g/dL Low 13.0-16.5 [facility] Comment on above: Order Comment: 111.2 Performed By: #### L 501.2300, L500.4050, L501.9060, L100.0100 #### [facility] [address] [place], [address] IG% 0.700 Normal 0.0-0.9 [facility] Comment on above: Order Comment: 111.2 Result Comment: IG% - Immature Granulocytes (promyelocytes, myelocytes and metamyelocytes) > 1% indicates that a LEFT SHIFT is Present. Performed By: #### L 501.2300, L500.4050, L501.9060, L100.0100 #### [facility] [address] [place], [address] Lymphocytes/100 WBC (Bld) 21.0 % Normal 19-41 [facility] Comment on above: Order Comment: 111.2 Performed By: #### L 501.2300, L500.4050, L501.9060, L100.0100 #### [facility] [address] [place], [address] MCH (RBC) [Entitic mass] 30.4 pg Normal 27.0-32.0 [facility] Comment on above: Order Comment: 111.2 Performed By: #### L 501.2300, L500.4050, L501.9060, L100.0100 #### [facility] [address] [place], [address] MCHC (RBC) [Mass/Vol] 33.2 g/dL Normal 32-36 [facility] Comment on above: Order Comment: 111.2 Performed By: #### L 501.2300, L500.4050, L501.9060, L100.0100 #### [facility] [address] [place], [address] MCV (RBC) [Entitic vol] 91.4 fL Normal 80-94 [facility] Comment on above: Order Comment: 111.2 Performed By: #### L 501.2300, L500.4050, L501.9060, L100.0100 #### [facility] [address] [place], [address] Monocytes/100 WBC (Bld) 9.9 % Normal 0-10 [facility] Comment on above: Order Comment: 111.2 Performed By: #### L 501.2300, L500.4050, L501.9060, L100.0100 #### [facility] [address] [place], [address] Neutrophils/100 WBC (Bld) 62.2 % Normal 47-70 [facility] Comment on above: Order Comment: 111.2 Performed By: #### L 501.2300, L500.4050, L501.9060, L100.0100 #### [facility] [address] [place], [address] Nucleated RBC (Bld) [#/Vol] 0 10*3/uL Normal 0-5 [facility] Comment on above: Order Comment: 111.2 Performed By: #### L 501.2300, L500.4050, L501.9060, L100.0100 #### [facility] [address] [place], [address] Platelet mean volume (Bld) [Entitic vol] 9.4 fL Normal 6.2-12.0 [facility] Comment on above: Order Comment: 111.2 Performed By: #### L 501.2300, L500.4050, L501.9060, L100.0100 #### [facility] [address] [place], [address] Platelets (Bld) [#/Vol] 245 10*3/uL Normal 150-450 [facility] Comment on above: Order Comment: 111.2 Performed By: #### L 501.2300, L500.4050, L501.9060, L100.0100 #### [facility] [address] [place], [address] RBC (Bld) [#/Vol] 4.18 10*6/uL Low 4.6-6.2 [facility] Comment on above: Order Comment: 111.2 Performed By: #### L 501.2300, L500.4050, L501.9060, L100.0100 #### [facility] [address] [place], [address] RDW SD 43.9 fl Normal 35.1-43.9 [facility] Comment on above: Order Comment: 111.2 Performed By: #### L 501.2300, L500.4050, L501.9060, L100.0100 #### [facility] [address] [place], [address] WBC (Bld) [#/Vol] 10.3 10*3/uL Normal 4.4-11.0 [facility] Comment on above: Order Comment: 111.2 Performed By: #### L 501.2300, L500.4050, L501.9060, L100.0100 #### [facility] [address] [place], [address] Carbon dioxide, total [Moles /volume] in Central venous bloodOrdered By: Adam Ferraro on 04-24-2025 CO2 [Moles/Vol] 21.9 mmol/L 21.0-32.0 [facility] Chloride assayOrdered By: Sabino Ferraro on 04-24-2025 Chloride [Moles/Vol] 107 mmol/L 98-108 [facility] Comprehensive Metabolic Prof ilon 04-24-2025 Albumin [Mass/Vol] 3.5 g/dL Normal 3.4-4.8 [facility] Comment on above: Order Comment: 111-2 Performed By: #### L 500.4050, L501.2300, L501.9060, L100.0100 #### [facility] [address] [place], [address] Albumin/Globulin [Mass ratio] 1.5 {ratio} Normal 0.9-2.4 [facility] Comment on above: Order Comment: 111-2 Performed By: #### L 500.4050, L501.2300, L501.9060, L100.0100 #### [facility] [address] [place], [address] ALK PHOS 76 U/L Normal 40-129 [facility] Comment on above: Order Comment: 111-2 Performed By: #### L 500.4050, L501.2300, L501.9060, L100.0100 #### [facility] [address] [place], [address] ALT [Catalytic activity/Vol] 11 U/L Normal <=46 [facility] Comment on above: Order Comment: 111-2 Performed By: #### L 500.4050, L501.2300, L501.9060, L100.0100 #### [facility] [address] [place], [address] AST [Catalytic activity/Vol] 16 U/L Normal <=37 [facility] Comment on above: Order Comment: 111-2 Performed By: #### L 500.4050, L501.2300, L501.9060, L100.0100 #### [facility] [address] [place], [address] Bilirubin [Mass/Vol] 0.16 mg/dL Normal 0.00-1.30 [facility] Comment on above: Order Comment: 111-2 Performed By: #### L 500.4050, L501.2300, L501.9060, L100.0100 #### [facility] [address] [place], [address] BUN/CRE 10.5 RATIO Normal 10-20 [facility] Comment on above: Order Comment: 111-2 Performed By: #### L 500.4050, L501.2300, L501.9060, L100.0100 #### [facility] [address] [place], [address] Calcium [Mass/Vol] 9.3 mg/dL Normal 7.6-11.0 [facility] Comment on above: Order Comment: 111-2 Performed By: #### L 500.4050, L501.2300, L501.9060, L100.0100 #### [facility] [address] [place], [address] Chloride [Moles/Vol] 107 mmol/L Normal 98-108 [facility] Comment on above: Order Comment: 111-2 Performed By: #### L 500.4050, L501.2300, L501.9060, L100.0100 #### [facility] [address] [place], [address] CO2 [Moles/Vol] 21.9 mmol/L Normal 21.0-32.0 [facility] Comment on above: Order Comment: 111-2 Performed By: #### L 500.4050, L501.2300, L501.9060, L100.0100 #### [facility] [address] [place], [address] Creatinine [Mass/Vol] 2.41 mg/dL High 0.70-1.20 [facility] Comment on above: Order Comment: 111-2 Performed By: #### L 500.4050, L501.2300, L501.9060, L100.0100 #### [facility] [address] [place], [address] GAP 12 Normal 5-15 [facility] Comment on above: Order Comment: 111-2 Performed By: #### L 500.4050, L501.2300, L501.9060, L100.0100 #### [facility] [address] [place], [address] GFR/1.73 sq M.predicted among non-blacks MDRD (S/P/Bld) [Vol rate/Area] 30 mL/min/{1.73_m2} Low >60 [facility] Comment on above: Order Comment: 111-2 Result Comment: mL/m in/1.73m2 CKD-EPI Creatinine Equation (2020) Performed By: #### L 500.4050, L501.2300, L501.9060, L100.0100 #### [facility] [address] [place], [address] Globulin (S) [Mass/Vol] 2.3 g/dL Normal 2.2-4.2 [facility] Comment on above: Order Comment: 111-2 Performed By: #### L 500.4050, L501.2300, L501.9060, L100.0100 #### [facility] [address] [place], [address] Glucose [Mass/Vol] 123 mg/dL High 70-99 [facility] Comment on above: Order Comment: 111-2 Performed By: #### L 500.4050, L501.2300, L501.9060, L100.0100 #### [facility] [address] [place], [address] Potassium [Moles/Vol] 4.6 mmol/L Normal 3.3-5.1 [facility] Comment on above: Order Comment: 111-2 Performed By: #### L 500.4050, L501.2300, L501.9060, L100.0100 #### [facility] [address] [place], [address] Sodium [Moles/Vol] 140 mmol/L Normal 133-145 [facility] Comment on above: Order Comment: 111-2 Performed By: #### L 500.4050, L501.2300, L501.9060, L100.0100 #### [facility] [address] [place], [address] T PROT 5.9 g/dL Normal 5.9-8.4 [facility] Comment on above: Order Comment: 111-2 Performed By: #### L 500.4050, L501.2300, L501.9060, L100.0100 #### [facility] [address] [place], [address] Urea nitrogen [Mass/Vol] 25 mg/dL High 4-19 [facility] Comment on above: Order Comment: 111-2 Performed By: #### L 500.4050, L501.2300, L501.9060, L100.0100 #### [facility] [address] [place], [address] Eosinophil percentageOrdered By: Adam Ferraro on 04-24-2025 Eosinophils/100 WBC (Bld) 5.1 % High 0-5 [facility] Erythrocyte distribution wid th ratioOrdered By: Adam Ferraro on 04-24-2025 Erythrocyte distribution width (RBC) [Ratio] 13.1 % 11.6-14.6 [facility] Erythrocyte distribution wid th standard deviationOrdered By: Adam Ferraro on 04-24-2025 Erythrocyte distribution width (RBC) [Ratio] 43.9 fl 35.1-43.9 [facility] Glomerular filtration rate ( GFR) estimation/1.73 sq m using serum, plasma, or whole bOrdered By: Adam Ferraro on 04-24-2025 GFR/1.73 sq M.predicted among non-blacks MDRD (S/P/Bld) [Vol rate/Area] 30 mL/min/{1.73_m2} Low >60 [facility] Comment on above: mL/min/1.73m2 CKD-EP I Creatinine Equation (2020) Hematocrit Auto (Bld) [Volum e fraction]Ordered By: Adam Ferraro on 04-24-2025 Hematocrit (Bld) [Volume fraction] 38.2 % Low 40-54 [facility] Hemoglobin measurementOrdere d By: Adam Ferraro on 04-24-2025 Hemoglobin (Bld) [Mass/Vol] 12.7 g/dL Low 13.0-16.5 [facility] Immature granulocytes/100 WB C Auto (Bld)Ordered By: Adam Ferraro on 04-24-2025 Immature granulocytes/100 WBC (Bld) 0.700 % 0.0-0.9 [facility] Comment on above: IG% - Immature Granu locytes (promyelocytes, myelocytes and metamyelocytes) > 1% indicates that a LEFT SHIFT is Present. Laboratory - Chemistry and C hemistry - challengeOrdered By: Adam Ferraro on 04-24-2025 AST [Catalytic activity/Vol] 16 U/L <38 [facility] Lithiumon 04-24-2025 LI 0.60 mmol/L Normal 0.60-1.20 [facility] Comment on above: Order Comment: 111-2 Performed By: #### L 500.4050, L501.2300, L501.9060, L100.0100 #### [facility] [address] [place], [address] MCV (mean corpuscular volume ) determinationOrdered By: Adam Ferraro on 04-24-2025 MCV (RBC) [Entitic vol] 91.4 fL 80-94 [facility] Mean corpuscular hemoglobin (MCH) determinationOrdered By: Adam Ferraro on 04-24-2025 MCH (RBC) [Entitic mass] 30.4 pg 27.0-32.0 [facility] Mean corpuscular hemoglobin concentration (MCHC) determinationOrdered By: Adam Ferraro on 04-24-2025 MCHC (RBC) [Mass/Vol] 33.2 g/dL 32-36 [facility] Mean platelet volume determi nationOrdered By: Adam Ferraro on 04-24-2025 Platelet mean volume (Bld) [Entitic vol] 9.4 fL 6.2-12.0 [facility] Monocyte percentageOrdered B y: Adam Ferraro on 04-24-2025 Monocytes/100 WBC (Bld) 9.9 % 0-10 [facility] Neutrophil percentageOrdered By: Adam Ferraro on 04-24-2025 Neutrophils/100 WBC (Bld) 62.2 % 47-70 [facility] Nucleated red blood cell per centageOrdered By: Adam Ferraro on 04-24-2025 Nucleated RBC/100 WBC (Bld) [Ratio] 0 % 0-5 [facility] Phosphoruson 04-24-2025 Phosphate [Mass/Vol] 4.8 mg/dL High 2.7-4.5 [facility] Comment on above: Order Comment: 111-2 Performed By: #### L 500.4050, L501.2300, L501.9060, L100.0100 #### [facility] [address] [place], [address] Platelet countOrdered By: Sabino Ferraro on 04-24-2025 Platelets (Bld) [#/Vol] 245 10*3/uL 150-450 [facility] Potassium measurement (mass/ volume)Ordered By: Adam Ferraro on 04-24-2025 Potassium (Unsp spec) [Mass/Vol] 4.6 mmol/L 3.3-5.1 [facility] RBC Auto (Bld) [#/Vol]Ordere d By: Adam Ferraro on 04-24-2025 RBC (Bld) [#/Vol] 4.18 10*6/uL Low 4.6-6.2 [facility] Serum creatinine measurement (mass/volume)Ordered By: Adam Ferraro on 04-24-2025 Creatinine [Mass/Vol] 2.41 mg/dL High 0.70-1.20 [facility] Serum globulin measurementOr dered By: Adam Ferraro on 04-24-2025 Globulin (S) [Mass/Vol] 2.3 g/dL 2.2-4.2 [facility] Serum glucose measurement (m ass/volume)Ordered By: Adam Ferraro on 04-24-2025 Glucose [Mass/Vol] 123 mg/dL High 70-99 [facility] Serum or plasma alanine sesay otransferase (ALT) measurementOrdered By: Adam Ferraro on 04-24-2025 ALT [Catalytic activity/Vol] 11 U/L <47 [facility] Serum or plasma albumin you urement (mass/volume)Ordered By: Adam Ferraro on 04-24-2025 Albumin [Mass/Vol] 3.5 g/dL 3.4-4.8 [facility] Serum or plasma albumin/glob ulin mass ratioOrdered By: Adam Ferraro on 04-24-2025 Albumin/Globulin [Mass ratio] 1.5 {ratio} 0.9-2.4 [facility] Serum or plasma alkaline hal sphatase measurementOrdered By: Adam Ferraro on 04-24-2025 ALP [Catalytic activity/Vol] 76 U/L 40-129 [facility] Serum or plasma calcium you urement (mass/volume)Ordered By: Adam Ferraro on 04-24-2025 Calcium [Mass/Vol] 9.3 mg/dL 7.6-11.0 [facility] Serum or plasma urea nitroge n measurement (mass/volume)Ordered By: Adam Ferraro on 04-24-2025 Urea nitrogen [Mass/Vol] 25 mg/dL High 4-19 [facility] Sodium levelOrdered By: Spike Ferraro on 04-24-2025 Sodium [Moles/Vol] 140 mmol/L 133-145 [facility] Total proteinOrdered By: Benoit Ferraro on 04-24-2025 Protein [Mass/Vol] 5.9 g/dL 5.9-8.4 [facility] White blood cell (WBC) count Ordered By: Adam Ferraro on 04-24-2025 WBC (Bld) [#/Vol] 10.3 10*3/uL 4.4-11.0 [facility] Lithiumon 04-01-2025 LI 0.64 mmol/L Normal 0.60-1.20 [facility] Comment on above: Order Comment: 111-2 Performed By: #### L 500.4050, L501.2300, L501.9060, L100.0100 #### [facility] [address] [place], [address] Serum or plasma uric acid me asurement (mass/volume)Ordered By: Alfredo Phipps on 03-27-2025 Urate [Mass/Vol] 6.5 mg/dL 3.5-7.2 [facility] Comment on above: The drugs N-Acetylcy steine and Metamizole may falsely depress this assay. Uric Acidon 03-27-2025 URIC 6.5 mg/dL Normal 3.5-7.2 [facility] Comment on above: Order Comment: 111-2 [id number] Result Comment: The drugs N-Acetylcysteine and Metamizole may falsely depress this assay. Performed By: #### L 500.4050, L501.2300, L501.9060, L100.0100 #### [facility] [address] [place], [address] Microalb:Creat Ratio,Random URon 03-05-2025 Creatinine [Mass/Vol] 72.80 mg/dL Normal 39.00- 259.0 0 [facility] Comment on above: Performed By: #### L 500.4050, L501.2300, L501.9060, L100.0100 #### [facility] [address] [place], [address] MALB:CREAT UNABLE TO CALCULATE Normal [facility] Comment on above: Performed By: #### L 500.4050, L501.2300, L501.9060, L100.0100 #### [facility] [address] [place], [address] MICROALBUMIN,UR < 12.0 Normal NO RANGE EST. [facility] Comment on above: Performed By: #### L 500.4050, L501.2300, L501.9060, L100.0100 #### [facility] [address] [place], [address] Microalbumin/creat ratio urO rdered By: Adam Ferraro on 03-04-2025 Urine microalbumin/creatinine ratio measurement UNABLE TO CALCULATE mg/g CRE [facility] Random urine creatinine you urement (mass/volume)Ordered By: Adam Ferraro on 03-04-2025 Creatinine Unsp time (U) [Mass/Vol] 72.80 mg/dL 39.00-259.0 0 [facility] Urine albumin measurement wi th detection limit of 20 mg/L or less (mass/volume)Ordered By: Adam Ferraro on 03-04-2025 Albumin DL <= 20 mg/L (U) [Mass/Vol] < 12.0 mg/L NO RANGE EST. [facility] Absolute lymphocyte countOrd ered By: Alfredo Phipps on 02-27-2025 Lymphocytes Auto (Unsp spec) [#/Vol] 1.42 10*3/uL 0.83-4.51 [facility] Absolute neutrophil countOrd ered By: Alfredo Phipps on 02-27-2025 Neutrophils (Bld) [#/Vol] 17.7 10*3/uL High 2.0-7.7 [facility] Anion gap in Serum or Plasma Ordered By: Alfredo Phipps on 02-27-2025 Anion gap [Moles/Vol] 12 mmol/L 5-15 [facility] Automated lymphocyte count a s percentage of total leukocytesOrdered By: Alfredo Phipps on 02-27-2025 Lymphocytes/100 WBC Auto (Unsp spec) 6.9 % Low 19-41 [facility] [facility] BUN/creatinine ratioOrdered By: Alfredo Phipps on 02-27-2025 Urea nitrogen/Creatinine [Mass ratio] 12.7 mg/mg 10-20 [facility] Basophil percentageOrdered B y: Alfredo Phipps on 02-27-2025 Basophils/100 WBC (Bld) 0.2 % 0-1 [facility] Bilirubin directOrdered By: Alfredo Phipps on 02-27-2025 Bilirubin.direct [Mass/Vol] 0.10 mg/dL 0.00-0.30 [facility] Bilirubin, Directon 02-28-20 25 Bilirubin.direct [Mass/Vol] 0.10 mg/dL Normal 0.00-0.30 [facility] Comment on above: Order Comment: 111. UNKNOWN [id number] Performed By: #### L [id number] #### [facility] [address] [place], [address] Bilirubin, totalOrdered By: Alfredo Phipps on 02-27-2025 Bilirubin [Mass/Vol] 0.19 mg/dL 0.00-1.30 [facility] CBC W/Diff, Automatedon 02-12 Absolute Lymph 1.42 X10 3/uL Normal 0.83-4.51 [facility] Comment on above: Order Comment: [id number] Performed By: #### L 500.4050, L501.2300, L501.9060, L100.0100 #### [facility] [address] [place], [address] Absolute Neut 17.7 X10 3/uL High 2.0-7.7 [facility] Comment on above: Order Comment: [id number] Performed By: #### L 500.4050, L501.2300, L501.9060, L100.0100 #### [facility] [address] [place], [address] Basophils/100 WBC (Bld) 0.2 % Normal 0-1 [facility] Comment on above: Order Comment: [id number] Performed By: #### L 500.4050, L501.2300, L501.9060, L100.0100 #### [facility] [address] [place], [address] Eosinophils/100 WBC (Bld) 0.0 % Normal 0-5 [facility] Comment on above: Order Comment: [id number] Performed By: #### L 500.4050, L501.2300, L501.9060, L100.0100 #### [facility] [address] [place], [address] Erythrocyte distribution width (RBC) [Ratio] 13.3 % Normal 11.6-14.6 [facility] Comment on above: Order Comment: [id number] Performed By: #### L 500.4050, L501.2300, L501.9060, L100.0100 #### [facility] [address] [place], [address] Hematocrit (Bld) [Volume fraction] 39.0 % Low 40-54 [facility] Comment on above: Order Comment: [id number] Performed By: #### L 500.4050, L501.2300, L501.9060, L100.0100 #### [facility] [address] [place], [address] Hemoglobin (Bld) [Mass/Vol] 13.1 g/dL Normal 13.0-16.5 [facility] Comment on above: Order Comment: [id number] Performed By: #### L 500.4050, L501.2300, L501.9060, L100.0100 #### [facility] [address] [place], [address] IG% 0.900 Normal 0.0-0.9 [facility] Comment on above: Order Comment: [id number] Result Comment: IG% - Immature Granulocytes (promyelocytes, myelocytes and metamyelocytes) > 1% indicates that a LEFT SHIFT is Present. Performed By: #### L 500.4050, L501.2300, L501.9060, L100.0100 #### [facility] [address] [place], [address] Lymphocytes/100 WBC (Bld) 6.9 % Low 19-41 [facility] Comment on above: Order Comment: [id number] Performed By: #### L 500.4050, L501.2300, L501.9060, L100.0100 #### [facility] [address] [place], [address] MCH (RBC) [Entitic mass] 30.1 pg Normal 27.0-32.0 [facility] Comment on above: Order Comment: [id number] Performed By: #### L 500.4050, L501.2300, L501.9060, L100.0100 #### [facility] [address] [place], [address] MCHC (RBC) [Mass/Vol] 33.6 g/dL Normal 32-36 [facility] Comment on above: Order Comment: [id number] Performed By: #### L 500.4050, L501.2300, L501.9060, L100.0100 #### [facility] [address] [place], [address] MCV (RBC) [Entitic vol] 89.7 fL Normal 80-94 [facility] Comment on above: Order Comment: [id number] Performed By: #### L 500.4050, L501.2300, L501.9060, L100.0100 #### [facility] [address] [place], [address] Monocytes/100 WBC (Bld) 6.4 % Normal 0-10 [facility] Comment on above: Order Comment: [id number] Performed By: #### L 500.4050, L501.2300, L501.9060, L100.0100 #### [facility] [address] [place], [address] Neutrophils/100 WBC (Bld) 85.6 % High 47-70 [facility] Comment on above: Order Comment: [id number] Performed By: #### L 500.4050, L501.2300, L501.9060, L100.0100 #### [facility] [address] [place], [address] Nucleated RBC (Bld) [#/Vol] 0 10*3/uL Normal 0-5 [facility] Comment on above: Order Comment: [id number] Performed By: #### L 500.4050, L501.2300, L501.9060, L100.0100 #### [facility] [address] [place], [address] Platelet mean volume (Bld) [Entitic vol] 9.3 fL Normal 6.2-12.0 [facility] Comment on above: Order Comment: [id number] Performed By: #### L 500.4050, L501.2300, L501.9060, L100.0100 #### [facility] [address] [place], [address] Platelets (Bld) [#/Vol] 274 10*3/uL Normal 150-450 [facility] Comment on above: Order Comment: [id number] Performed By: #### L 500.4050, L501.2300, L501.9060, L100.0100 #### [facility] [address] [place], [address] RBC (Bld) [#/Vol] 4.35 10*6/uL Low 4.6-6.2 [facility] Comment on above: Order Comment: [id number] Performed By: #### L 500.4050, L501.2300, L501.9060, L100.0100 #### [facility] [address] [place], [address] RDW SD 43.8 fl Normal 35.1-43.9 [facility] Comment on above: Order Comment: [id number] Performed By: #### L 500.4050, L501.2300, L501.9060, L100.0100 #### [facility] [address] [place], [address] WBC (Bld) [#/Vol] 20.6 10*3/uL High 4.4-11.0 [facility] Comment on above: Order Comment: [id number] Performed By: #### L 500.4050, L501.2300, L501.9060, L100.0100 #### [facility] [address] [place], [address] Carbon dioxide, total [Moles /volume] in Central venous bloodOrdered By: Alfredo Phipps on 02-27-2025 CO2 [Moles/Vol] 20.5 mmol/L Low 21.0-32.0 [facility] Chloride assayOrdered By: Chan Fiore on 02-27-2025 Chloride [Moles/Vol] 105 mmol/L 98-108 [facility] Comprehensive Metabolic Prof ilon 02-27-2025 Albumin [Mass/Vol] 3.9 g/dL Normal 3.4-4.8 [facility] Comment on above: Order Comment: 111.2 UNKNOWN [id number] 0000 Performed By: #### L 501.9060 #### [facility] [address] [place], [address] Albumin/Globulin [Mass ratio] 1.6 {ratio} Normal 0.9-2.4 [facility] Comment on above: Order Comment: 111.2 UNKNOWN 20250701 0000 Performed By: #### L 501.9060 #### [facility] [address] [place], [address] ALK PHOS 66 U/L Normal 40-129 [facility] Comment on above: Order Comment: 111.2 UNKNOWN 20250701 0000 Performed By: #### L [id number] #### [facility] [address] [place], [address] ALT [Catalytic activity/Vol] 13 U/L Normal <=46 [facility] Comment on above: Order Comment: 111.2 UNKNOWN 20250701 0000 Performed By: #### L [id number] #### [facility] [address] [place], [address] AST [Catalytic activity/Vol] 11 U/L Normal <=37 [facility] Comment on above: Order Comment: 111.2 UNKNOWN 20250701 0000 Performed By: #### L [id number] #### [facility] [address] [place], [address] Bilirubin [Mass/Vol] 0.19 mg/dL Normal 0.00-1.30 [facility] Comment on above: Order Comment: 111.2 UNKNOWN [id number] 0000 Performed By: #### L [id number] #### [facility] [address] [place], [address] BUN/CRE 12.7 RATIO Normal 10-20 [facility] Comment on above: Order Comment: 111.2 UNKNOWN 20250701 0000 Performed By: #### L [id number] #### [facility] [address] [place], [address] Calcium [Mass/Vol] 9.8 mg/dL Normal 7.6-11.0 [facility] Comment on above: Order Comment: 111.2 UNKNOWN 20250701 0000 Performed By: #### L 501.9060 #### [facility] [address] [place], [address] Chloride [Moles/Vol] 105 mmol/L Normal 98-108 [facility] Comment on above: Order Comment: 111.2 UNKNOWN [id number] 0000 Performed By: #### L [id number] #### [facility] [address] [place], [address] CO2 [Moles/Vol] 20.5 mmol/L Low 21.0-32.0 [facility] Comment on above: Order Comment: 111.2 UNKNOWN 20250701 0000 Performed By: #### L [id number] #### [facility] [address] [place], [address] Creatinine [Mass/Vol] 2.32 mg/dL High 0.70-1.20 [facility] Comment on above: Order Comment: 111.2 UNKNOWN 20250701 Performed By: #### L [id number] #### [facility] [address] [place], [address] GAP 12 Normal 5-15 [facility] Comment on above: Order Comment: 111.2 UNKNOWN 20250701 Performed By: #### L [id number] #### [facility] [address] [place], [address] GFR/1.73 sq M.predicted among non-blacks MDRD (S/P/Bld) [Vol rate/Area] 31 mL/min/{1.73_m2} Low >60 [facility] Comment on above: Order Comment: 111.2 UNKNOWN 20250701 Result Comment: mL/m in/1.73m2 CKD-EPI Creatinine Equation (2020) Performed By: #### L [id number] #### [facility] [address] [place], [address] Globulin (S) [Mass/Vol] 2.4 g/dL Normal 2.2-4.2 [facility] Comment on above: Order Comment: 111.2 UNKNOWN 20250701 Performed By: #### L [id number] #### [facility] [address] [place], [address] Glucose [Mass/Vol] 134 mg/dL High 70-99 [facility] Comment on above: Order Comment: 111.2 UNKNOWN 20250701 0000 Performed By: #### L 501.9060 #### [facility] [address] [place], [address] Potassium [Moles/Vol] 4.4 mmol/L Normal 3.3-5.1 [facility] Comment on above: Order Comment: 111.2 UNKNOWN 20250701 0000 Performed By: #### L 501.9060 #### [facility] [address] [place], [address] Sodium [Moles/Vol] 138 mmol/L Normal 133-145 [facility] Comment on above: Order Comment: 111.2 UNKNOWN 20250701 0000 Performed By: #### L 501.9060 #### [facility] [address] [place], [address] T PROT 6.2 g/dL Normal 5.9-8.4 [facility] Comment on above: Order Comment: 111.2 UNKNOWN 20250701 0000 Performed By: #### L 501.9060 #### [facility] [address] [place], [address] Urea nitrogen [Mass/Vol] 29 mg/dL High 4-19 [facility] Comment on above: Order Comment: 111.2 UNKNOWN 20250701 0000 Performed By: #### L [id number] #### [facility] [address] [place], [address] Eosinophil percentageOrdered By: Alfredo Phipps on 02-27-2025 Eosinophils/100 WBC (Bld) 0.0 % 0-5 [facility] Erythrocyte distribution wid th (RBC) [Ratio]Ordered By: Alfredo Phipps on 02-27-2025 Erythrocyte distribution width (RBC) [Entitic vol] 43.8 fL 35.1-43.9 [facility] Erythrocyte distribution wid th ratioOrdered By: Alfredo Phipps on 02-27-2025 Erythrocyte distribution width (RBC) [Ratio] 13.3 % 11.6-14.6 [facility] Erythrocyte distribution wid th standard deviationOrdered By: Alfredo Phipps on 02-27-2025 Erythrocyte distribution width (RBC) [Ratio] 43.8 fl 35.1-43.9 [facility] GFR/1.73 sq M.predicted miles g non-blacks MDRD (S/P/Bld) [Vol rate/Area]Ordered By: Alfredo Phipps on 02-27-2025 Estimated GFR (MDRD) Non-Af Amer 31 Low >60 [facility] Comment on above: mL/min/1.73m2 CKD-EP I Creatinine Equation (2020) Glomerular filtration rate ( GFR) estimation/1.73 sq m using serum, plasma, or whole bOrdered By: Alfredo Phipps on 02-27-2025 GFR/1.73 sq M.predicted among non-blacks MDRD (S/P/Bld) [Vol rate/Area] 31 mL/min/{1.73_m2} Low >60 [facility] Comment on above: mL/min/1.73m2 CKD-EP I Creatinine Equation (2020) Hematocrit Auto (Bld) [Volum e fraction]Ordered By: Alfredo Phipps on 02-27-2025 Hematocrit (Bld) [Volume fraction] 39.0 % Low 40-54 [facility] Hemoglobin measurementOrdere d By: Alfredo Phipps on 02-27-2025 Hemoglobin (Bld) [Mass/Vol] 13.1 g/dL 13.0-16.5 [facility] Immature granulocytes/100 WB C Auto (Bld)Ordered By: Alfredo Phipps on 02-27-2025 Immature granulocytes/100 WBC (Bld) 0.900 % 0.0-0.9 [facility] Comment on above: IG% - Immature Granu locytes (promyelocytes, myelocytes and metamyelocytes) > 1% indicates that a LEFT SHIFT is Present. Laboratory - Chemistry and C hemistry - challengeOrdered By: Alfredo Phipps on 02-27-2025 AST [Catalytic activity/Vol] 11 U/L <38 [facility] Lithiumon 02-27-2025 LI 0.60 mmol/L Normal 0.60-1.20 [facility] Comment on above: Order Comment: 111.2 UNKNOWN [id number] 0000 Performed By: #### L [id number] #### [facility] [place], [address] [place] levelOrdered By: Jennifer Phipps on 02-27-2025 [place] Level 0.60 mmol/L 0.60-1.20 [facility] Lymphocytes Auto (Unsp spec) [#/Vol]Ordered By: Alfredo Phipps on 02-27-2025 Lymphocytes (Bld) [#/Vol] 1.42 10*3/uL 0.83-4.5 1 [facility] Lymphocytes/100 WBC Auto (Un sp spec)Ordered By: Alfredo Phipps on 02-27-2025 Lymphocytes/100 WBC (Bld) 6.9 % Low 19-41 [facility] MCV (mean corpuscular volume ) determinationOrdered By: Alfredo Phipps on 02-27-2025 MCV (RBC) [Entitic vol] 89.7 fL 80-94 [facility] Mean corpuscular hemoglobin (MCH) determinationOrdered By: Alfredo Phipps on 02-27-2025 MCH (RBC) [Entitic mass] 30.1 pg 27.0-32.0 [facility] Mean corpuscular hemoglobin concentration (MCHC) determinationOrdered By: Alfredo Phipps on 02-27-2025 MCHC (RBC) [Mass/Vol] 33.6 g/dL 32-36 [facility] Mean platelet volume determi nationOrdered By: Alfredo Phipps on 02-27-2025 Platelet mean volume (Bld) [Entitic vol] 9.3 fL 6.2-12.0 [facility] Monocyte percentageOrdered B y: Alfredo Phipps on 02-27-2025 Monocytes/100 WBC (Bld) 6.4 % 0-10 [facility] Neutrophil percentageOrdered By: Alfredo Phipps on 02-27-2025 Neutrophils/100 WBC (Bld) 85.6 % High 47-70 [facility] Nucleated red blood cell per centageOrdered By: Alfredo Phipps on 02-27-2025 Nucleated RBC/100 WBC (Bld) [Ratio] 0 % 0-5 [facility] Platelet countOrdered By: Chan Fiore on 02-27-2025 Platelets (Bld) [#/Vol] 274 10*3/uL 150-450 [facility] Potassium (Unsp spec) [Mass/ Vol]Ordered By: Alfredo Phipps on 02-27-2025 Potassium [Moles/Vol] 4.4 mmol/L 3.3-5.1 [facility] Potassium measurement (mass/ volume)Ordered By: Alfredo Phipps on 02-27-2025 Potassium (Unsp spec) [Mass/Vol] 4.4 mmol/L 3.3-5.1 [facility] RBC Auto (Bld) [#/Vol]Ordere d By: Alfredo Phipps on 02-27-2025 RBC (Bld) [#/Vol] 4.35 10*6/uL Low 4.6-6.2 [facility] Serum creatinine measurement (mass/volume)Ordered By: Alfredo Phipps on 02-27-2025 Creatinine [Mass/Vol] 2.32 mg/dL High 0.70-1.20 [facility] Serum globulin measurementOr dered By: Alfredo Phipps on 02-27-2025 Globulin (S) [Mass/Vol] 2.4 g/dL 2.2-4.2 [facility] Serum glucose measurement (m ass/volume)Ordered By: Alfredo Phipps on 02-27-2025 Glucose [Mass/Vol] 134 mg/dL High 70-99 [facility] Serum or plasma alanine sesay otransferase (ALT) measurementOrdered By: Alfredo Phipps on 02-27-2025 ALT [Catalytic activity/Vol] 13 U/L <47 [facility] Serum or plasma albumin you urement (mass/volume)Ordered By: Alfredo Phipps on 02-27-2025 Albumin [Mass/Vol] 3.9 g/dL 3.4-4.8 [facility] Serum or plasma albumin/glob ulin mass ratioOrdered By: Alfredo Phipps on 02-27-2025 Albumin/Globulin [Mass ratio] 1.6 {ratio} 0.9-2.4 [facility] Serum or plasma alkaline hal sphatase measurementOrdered By: Alfredo Phipps on 02-27-2025 ALP [Catalytic activity/Vol] 66 U/L 40-129 [facility] Serum or plasma calcium you urement (mass/volume)Ordered By: Alfredo Phipps on 02-27-2025 Calcium [Mass/Vol] 9.8 mg/dL 7.6-11.0 [facility] Serum or plasma urea nitroge n measurement (mass/volume)Ordered By: Alfredo Phipps on 02-27-2025 Urea nitrogen [Mass/Vol] 29 mg/dL High 4-19 [facility] Sodium levelOrdered By: Raffi Phipps on 02-27-2025 Sodium [Moles/Vol] 138 mmol/L 133-145 [facility] Total proteinOrdered By: Jennifer Phipps on 02-27-2025 Protein [Mass/Vol] 6.2 g/dL 5.9-8.4 [facility] White blood cell (WBC) count Ordered By: Alfredo Phipps on 02-27-2025 WBC (Bld) [#/Vol] 20.6 10*3/uL High 4.4-11.0 [facility] Serum or plasma uric acid me asurement (mass/volume)Ordered By: Adam Ferraro on 02-25-2025 Urate [Mass/Vol] 6.3 mg/dL 3.5-7.2 [facility] Comment on above: The drugs N-Acetylcy steine and Metamizole may falsely depress this assay. Uric Acidon 02-25-2025 URIC 6.3 mg/dL Normal 3.5-7.2 [facility] Comment on above: Order Comment: 111-2 Result Comment: The drugs N-Acetylcysteine and Metamizole may falsely depress this assay. Performed By: #### L 500.4050, L501.2300, L501.9060, L100.0100 #### [facility] [address] [place], [place], [id number] Calculated very low density lipoprotein (VLDL) cholesterol measurementOrdered By: Alfredo Phipps on 02-11-2025 Calculated very low density lipoprotein (VLDL) cholesterol measurement 43 mg/dL High 5-40 [facility] VLDL Cholesterol 43 mg/dL High 5-40 [facility] LDL calc ser/plasOrdered By: Alfredo Phipps on 02-11-2025 Cholesterol in LDL [Mass/Vol] 67 mg/dL [facility] Comment on above: Whispmuons=759-320 m g/dL & Higher Wmdf=682 mg/dL or greater LDL Cholesterol, Calculated 67 mg/dL [facility] Comment on above: Pzuqkqdcxe=650-487 m g/dL & Higher Ewlq=347 mg/dL or greater Lipid Profileon 02-11-2025 CHOL:HDL 4.53 Normal [facility] Comment on above: Order Comment: 111.2 UNKNOWN 20250701 Performed By: #### L 501.9060 #### [facility] [address] [place], [place], [id number] (510) Cholesterol [Mass/Vol] 141 mg/dL Normal <=200 [facility] Comment on above: Order Comment: 111.2 UNKNOWN 20250701 Result Comment: Chol esterol level, Desirable <200 mg/dL Borderline high cholesterol 200-239 mg/dL High cholesterol >=240 mg/dL Recommendations of the NCEP Adult Treatment Panel for the following risk-cutoff thresholds for the [place] population. Performed By: #### L 501.9060 #### [facility] [address] [place], [place], [id number] (782) Cholesterol in HDL [Mass/Vol] 31 mg/dL Low [facility] Comment on above: Order Comment: 111.2 UNKNOWN 20250701 Result Comment: Fabienne onal Cholesterol Education Program (NCEP) guidelines: <40 mg/dL: Low HDL-cholesterol (major risk factor for CHD) >= 60 mg/dL: High HDL-cholesterol (negative risk factor for CHD) HDL-cholesterol is affected by a number of factors, e.g. smoking, exercise, hormones, sex and age. Performed By: #### L 501.9060 #### [facility] [address] [place], [place], [phone] (399) Cholesterol in LDL [Mass/Vol] 67 mg/dL Normal [facility] Comment on above: Order Comment: 111.2 UNKNOWN 20250701 Result Comment: Bord dvbwkc=083-707 mg/dL Higher Ywfp=974 mg/dL or greater Performed By: #### L 501.9060 #### [facility] [address] [place], [place], [id number] Cholesterol in VLDL [Mass/Vol] 43 mg/dL High 5-40 [facility] Comment on above: Order Comment: 111.2 UNKNOWN [id number] 0000 Performed By: #### L 501.9060 #### [facility] [address] [place], [place], [id number] Triglyceride [Mass/Vol] 215 mg/dL High [facility] Comment on above: Order Comment: 111.2 UNKNOWN [id number] Result Comment: The drugs N-Acetylcysteine and Metamizole may falsely depress this assay. Normal range: <150 mg/dL Borderline High: 150-199 mg/dL High: 200-499 mg/dL Very High: >500 mg/dL Performed By: #### L 501.9060 #### [facility] [address] [place], [place], [id number] Screening total cholesterol/ high density lipoprotein (HDL) cholesterol ratioOrdered By: Alfredo Phipps on 02-11-2025 Cholesterol.total/Choleste rol in HDL [Mass ratio] 4.53 {ratio} [facility] Serum or plasma cholesterol in HDL measurement (mass/volume)Ordered By: Alfredo Phipps on 02-11-2025 Cholesterol in HDL [Mass/Vol] 31 mg/dL Low >40 [facility] Comment on above: National Cholesterol Education Program (NCEP) guidelines:<40 mg/dL: Low HDL-cholesterol (major risk factor for CHD)>= 60 mg/dL: High HDL-cholesterol (negative risk factor for CHD)HDL-cholesterol is affected by a number of factors, e.g. smoking, exercise, hormones, sex and age. Serum or plasma cholesterol measurement (mass/volume)Ordered By: Alfredo Phipps on 02-11-2025 Cholesterol [Mass/Vol] 141 mg/dL <201 [facility] Comment on above: Cholesterol level, D esirable <200 mg/dLBorderline high cholesterol 200-239 mg/dLHigh cholesterol >=240 mg/dLRecommendations of the NCEP Adult Treatment Panel for the following risk-cutoff thresholds for the [place] population. Triglycerides measurementOrd ered By: Alfredo Phipps on 02-11-2025 Triglyceride [Mass/Vol] 215 mg/dL High <199 [facility] Comment on above: The drugs N-Acetylcy steine and Metamizole may falsely depress this assay. Normal range: <150 mg/dLBorderline High: 150-199 mg/dLHigh: 200-499 mg/dLVery High: >500 mg/dL Hemoglobin A1con 02-06-2025 HbA1c (Bld) [Mass fraction] 5.8 % Normal <=5.6 [facility] Comment on above: Order Comment: 111.2 UNKNOWN [id number] 0000 Performed By: #### L [id number] #### [facility] [address] [place], [place], [address] Hemoglobin A1c percentageOrd ered By: Alfredo Phipps on 02-06-2025 HbA1c (Bld) [Mass fraction] 5.8 % >5.7 [facility] Lithiumon 01-30-2025 LI 0.71 mmol/L Normal 0.60-1.20 [facility] Comment on above: Order Comment: 111-2 Performed By: #### L 500.4050, L501.2300, L501.9060, L100.0100 #### [facility] [address] [place], [place], [address] [place] levelOrdered By: Benoit Ferraro on 01-30-2025 [place] Level 0.71 mmol/L 0.60-1.20 [facility] Serum or plasma uric acid me asurement (mass/volume)Ordered By: Adam Ferraro on 01-25-2025 Urate [Mass/Vol] 6.2 mg/dL 3.5-7.2 [facility] Comment on above: The drugs N-Acetylcy steine and Metamizole may falsely depress this assay. Uric Acidon 01-25-2025 URIC 6.2 mg/dL Normal 3.5-7.2 [facility] Comment on above: Order Comment: 111-2 Result Comment: The drugs N-Acetylcysteine and Metamizole may falsely depress this assay. Performed By: #### L 500.4050, L501.2300, L501.9060, L100.0100 #### [facility] [address] [place], [address] Microalb:Creat Ratio,Random URon 01-03-2025 Creatinine [Mass/Vol] 104.00 mg/dL Normal NO RAN GE EST. [facility] Comment on above: Performed By: #### L [id number] #### [facility] [address] [place], [address] MALB:CRE TNP Normal <30 mg/g CRE [facility] Comment on above: Performed By: #### L [id number] #### [facility] [address] [place], [address] MICROALBUMIN,UR < 5.0 Normal NO RANGE EST. [facility] Comment on above: Performed By: #### L [id number] #### [facility] [address] [place], [address] Random urine microalbumin me asurementOrdered By: Adam Ferraro on 01-03-2025 Urine Random Microalbumin < 5.0 mg/L NO RANGE EST. [facility] Urine albumin/creatinine rat io for detection of microalbuminuriaOrdered By: Adam Ferraro on 01-03-2025 Urine Microalbumin/Creatinine Ratio TNP [facility] Comment on above: Test not performed Urine creatinine measurement (mass/volume)Ordered By: Adam Ferraro on 01-03-2025 Creatinine (U) [Mass/Vol] 104.00 mg/dL NO RANGE EST. [facility] Absolute lymphocyte countOrd ered By: Adam Ferraro on 01-02-2025 Lymphocytes Auto (Unsp spec) [#/Vol] 2.41 10*3/uL 0.83-4.51 [facility] Absolute neutrophil countOrd ered By: Adam Ferraro on 01-02-2025 Neutrophils (Bld) [#/Vol] 5.6 10*3/uL 2.0-7.7 [facility] Albumin to globulin ratioOrd ered By: Adam Muñozmele on 01-02-2025 Albumin/Globulin [Mass ratio] 1.0 {ratio} 0.9-2.4 [facility] Automated lymphocyte count a s percentage of total leukocytesOrdered By: Adam Ferraro on 01-02-2025 Lymphocytes/100 WBC Auto (Unsp spec) 25.1 % [facility] Basophil percentageOrdered B y: Adam Ferraro on 01-02-2025 Basophils/100 WBC (Bld) 1.1 % High 0-1 [facility] Bilirubin, totalOrdered By: Adam Ferraro on 01-02-2025 Bilirubin [Mass/Vol] 0.30 mg/dL 0.20-1.00 [facility] Comment on above: For patients on eltr ombopag therapy, use of Dimension Ragland TBIL is not recommended. Blood urea nitrogen (BUN)/cr eatinine ratioOrdered By: Adam Ferraro on 01-02-2025 Urea nitrogen/Creatinine [Mass ratio] 12.6 mg/mg 10- [facility] CBC W/Diff, Automatedon 12-15 Absolute Lymph 2.41 X10 3/uL Normal 0.83-4.51 [facility] Comment on above: Order Comment: 111.2 UNKNOWN [id number] 0000 Performed By: #### L [id number] #### [facility] [address] [place], [address] Absolute Neut 5.6 X10 3/uL Normal 2.0-7.7 [facility] Comment on above: Order Comment: 111.2 UNKNOWN [id number] 0000 Performed By: #### L [id number] #### [facility] [address] [place], [address] Basophils/100 WBC (Bld) 1.1 % High 0-1 [facility] Comment on above: Order Comment: 111.2 UNKNOWN [id number] 0000 Performed By: #### L [id number] #### [facility] [address] [place], [address] Eosinophils/100 WBC (Bld) 5.3 % High 0-5 [facility] Comment on above: Order Comment: 111.2 UNKNOWN [id number] 0000 Performed By: #### L [id number] #### [facility] [address] [place], [address] Erythrocyte distribution width (RBC) [Ratio] 12.9 % Normal 11.6-14.6 [facility] Comment on above: Order Comment: 111.2 UNKNOWN [id number] 0000 Performed By: #### L [id number] #### [facility] [address] [place], [address] Hematocrit (Bld) [Volume fraction] 40.5 % Normal 40-54 [facility] Comment on above: Order Comment: 111.2 UNKNOWN [id number] 0000 Performed By: #### L [id number] #### [facility] [address] [place], [address] Hemoglobin (Bld) [Mass/Vol] 13.4 g/dL Normal 13.0-16.5 [facility] Comment on above: Order Comment: 111.2 UNKNOWN [id number] 0000 Performed By: #### L [id number] #### [facility] [address] [place], [address] IG% 0.500 Normal 0.0-0.9 [facility] Comment on above: Order Comment: 111.2 UNKNOWN 20250701 0000 Result Comment: IG% - Immature Granulocytes (promyelocytes, myelocytes and metamyelocytes) > 1% indicates that a LEFT SHIFT is Present. Performed By: #### L [id number] #### [facility] [address] [place], [address] Lymphocytes/100 WBC (Bld) 25.1 % Normal 19-41 [facility] Comment on above: Order Comment: 111.2 UNKNOWN [id number] 0000 Performed By: #### L [id number] #### [facility] [address] [place], [address] MCH (RBC) [Entitic mass] 30.0 pg Normal 27.0-32.0 [facility] Comment on above: Order Comment: 111.2 UNKNOWN [id number] 0000 Performed By: #### L [id number] #### [facility] [address] [place], [address] MCHC (RBC) [Mass/Vol] 33.1 g/dL Normal 32-36 [facility] Comment on above: Order Comment: 111.2 UNKNOWN [id number] 0000 Performed By: #### L [id number] #### [facility] [address] [place], [address] MCV (RBC) [Entitic vol] 90.8 fL Normal 80-94 [facility] Comment on above: Order Comment: 111.2 UNKNOWN [id number] 0000 Performed By: #### L [id number] #### [facility] [address] [place], [address] Monocytes/100 WBC (Bld) 9.4 % Normal 0-10 [facility] Comment on above: Order Comment: 111.2 UNKNOWN [id number] 0000 Performed By: #### L [id number] #### [facility] [address] [place], [address] Neutrophils/100 WBC (Bld) 58.6 % Normal 47-70 [facility] Comment on above: Order Comment: 111.2 UNKNOWN [id number] 0000 Performed By: #### L [id number] #### [facility] [address] [place], [address] Nucleated RBC (Bld) [#/Vol] 0 10*3/uL Normal 0-5 [facility] Comment on above: Order Comment: 111.2 UNKNOWN [id number] 0000 Performed By: #### L [id number] #### [facility] [address] [place], [address] Platelet mean volume (Bld) [Entitic vol] 9.5 fL Normal 6.2-12.0 [facility] Comment on above: Order Comment: 111.2 UNKNOWN [id number] 0000 Performed By: #### L [id number] #### [facility] [address] [place], [address] Platelets (Bld) [#/Vol] 247 10*3/uL Normal 150-450 [facility] Comment on above: Order Comment: 111.2 UNKNOWN [id number] 0000 Performed By: #### L [id number] #### [facility] [address] [place], [address] RBC (Bld) [#/Vol] 4.46 10*6/uL Low 4.6-6.2 [facility] Comment on above: Order Comment: 111.2 UNKNOWN 20250701 0000 Performed By: #### L [id number] #### [facility] [address] [place], [address] RDW SD 41.9 fl Normal 35.1-43.9 [facility] Comment on above: Order Comment: 111.2 UNKNOWN 20250701 0000 Performed By: #### L [id number] #### [facility] [address] [place], [address] WBC (Bld) [#/Vol] 9.6 10*3/uL Normal 4.4-11.0 [facility] Comment on above: Order Comment: 111.2 UNKNOWN 20250701 0000 Performed By: #### L [id number] #### [facility] [address] [place], [address] Carbon dioxide measurementOr dered By: Adam Ferraro on 01-02-2025 CO2 [Moles/Vol] 25.0 mmol/L 21.0-32.0 [facility] Chloride measurementOrdered By: Adam Ferraro on 01-02-2025 Chloride [Moles/Vol] 109 mmol/L High 98-107 [facility] Comprehensive Metabolic Prof ilon 01-02-2025 Albumin [Mass/Vol] 3.1 g/dL Low 3.2-5.0 [facility] Comment on above: Order Comment: 111.2 UNKNOWN [id number] 0000 Performed By: #### L [id number] #### [facility] [address] [place], [address] Albumin/Globulin [Mass ratio] 1.0 {ratio} Normal 0.9-2.4 [facility] Comment on above: Order Comment: 111.2 UNKNOWN [id number] 0000 Performed By: #### L [id number] #### [facility] [address] [place], [address] ALK P 81 U/L Normal 45-117 [facility] Comment on above: Order Comment: 111.2 UNKNOWN 20250701 0000 Performed By: #### L [id number] #### [facility] [address] [place], [address] ALT [Catalytic activity/Vol] 17 U/L Normal 16-61 [facility] Comment on above: Order Comment: 111.2 UNKNOWN 20250701 0000 Performed By: #### L [id number] #### [facility] [address] [place], [address] AST [Catalytic activity/Vol] 12 U/L Low 15-37 [facility] Comment on above: Order Comment: 111.2 UNKNOWN 20250701 0000 Performed By: #### L [id number] #### [facility] [address] [place], [address] Bilirubin [Mass/Vol] 0.30 mg/dL Normal 0.20-1.00 [facility] Comment on above: Order Comment: 111.2 UNKNOWN 20250701 0000 Result Comment: For patients on eltrombopag therapy, use of Dimension Ragland TBIL is not recommended. Performed By: #### L [id number] #### [facility] [address] [place], [address] BUN/CRE 12.6 RATIO Normal 10-20 [facility] Comment on above: Order Comment: 111.2 UNKNOWN 20250701 0000 Performed By: #### L 048.2081 #### [facility] [address] [place], [address] CA,Total 9.4 mg/dL Normal 8.5-10.1 [facility] Comment on above: Order Comment: 111.2 UNKNOWN 20250701 0000 Performed By: #### L 906.0547 #### [facility] [address] [place], [address] Chloride [Moles/Vol] 109 mmol/L High 98-107 [facility] Comment on above: Order Comment: 111.2 UNKNOWN 20250701 0000 Performed By: #### L 552.1308 #### [facility] [address] [place], [address] CO2 [Moles/Vol] 25.0 mmol/L Normal 21.0-32.0 [facility] Comment on above: Order Comment: 111.2 UNKNOWN 20250701 0000 Performed By: #### L 316.0379 #### [facility] [address] [place], [address] Creatinine [Mass/Vol] 2.14 mg/dL High 0.70-1.30 [facility] Comment on above: Order Comment: 111.2 UNKNOWN 20250701 0000 Result Comment: The validity of the calculated GFR GFRAA in patients over 70 years has not been determined. Clinical correlation is essential. Performed By: #### L [id number] #### [facility] [address] [place], [address] EST GFR - AA 41 mL/min Low >60 [facility] Comment on above: Order Comment: 111.2 UNKNOWN 20250701 0000 Result Comment: Afri can Indian GFR Calc Performed By: #### L 413.3319 #### [facility] [address] [place], [address] GAP 7 Normal 5-15 [facility] Comment on above: Order Comment: 111.2 UNKNOWN 20250701 0000 Performed By: #### L [id number] #### [facility] [address] [place], [address] GFR/1.73 sq M.predicted among non-blacks MDRD (S/P/Bld) [Vol rate/Area] 34 mL/min/{1.73_m2} Low >60 [facility] Comment on above: Order Comment: 111.2 UNKNOWN 20250701 0000 Result Comment: Non- GFR Calc Performed By: #### L [id number] #### [facility] [address] [place], [address] Globulin (S) [Mass/Vol] 3.1 g/dL Normal 2.2-4.2 [facility] Comment on above: Order Comment: 111.2 UNKNOWN 20250701 0000 Performed By: #### L [id number] #### [facility] [address] [place], [address] Glucose [Mass/Vol] 115 mg/dL High 74-106 [facility] Comment on above: Order Comment: 111.2 UNKNOWN 20250701 0000 Result Comment: Fast ing Glucose result from 100 to 125 mg/dL suggests IMPAIRED HOMEOSTASIS per A.D.A. criteria. Performed By: #### L [id number] #### [facility] [address] [place], [address] Potassium [Moles/Vol] 4.1 mmol/L Normal 3.5-5.1 [facility] Comment on above: Order Comment: 111.2 UNKNOWN 20250701 0000 Performed By: #### L [id number] #### [facility] [address] [place], [address] Sodium [Moles/Vol] 141 mmol/L Normal 136-145 [facility] Comment on above: Order Comment: 111.2 UNKNOWN 20250701 0000 Performed By: #### L [id number] #### [facility] [address] [place], [place], [address] T PROT 6.2 g/dL Low 6.4-8.2 [facility] Comment on above: Order Comment: 111.2 UNKNOWN 20250701 0000 Performed By: #### L [id number] #### [facility] [address] [place], [address] Urea nitrogen [Mass/Vol] 27 mg/dL High 7-18 [facility] Comment on above: Order Comment: 111.2 UNKNOWN 20250701 0000 Performed By: #### L [id number] #### [facility] [address] [place], [place], [address] Eosinophil percentageOrdered By: Adam Ferraro on 01-02-2025 Eosinophils/100 WBC (Bld) 5.3 % High 0-5 [facility] Erythrocyte distribution wid th ratioOrdered By: Adam Ferraro on 01-02-2025 Erythrocyte distribution width (RBC) [Ratio] 12.9 % 11.6-14.6 [facility] Erythrocyte distribution wid th standard deviationOrdered By: Adam Ferraro on 01-02-2025 Erythrocyte distribution width (RBC) [Entitic vol] 41.9 fL 35.1-43.9 [facility] Erythrocyte distribution width (RBC) [Ratio] 41.9 fl 35.1-43.9 [facility] Estimated glomerular filtrat ion rate (GFR) AmericanOrdered By: Adam Ferraro on 01-02-2025 Estimated GFR (MDRD) Amer 41 mL/min Low >60 [facility] Comment on above: GFR Calc Glomerular filtration rate ( GFR) estimationOrdered By: Adam Ferraro on 01-02-2025 Estimated GFR (MDRD) Non-Af Amer 34 mL/min Low >60 [facility] Comment on above: Non- GFR Calc GFR/1.73 sq M.predicted among non-blacks MDRD (S/P/Bld) [Vol rate/Area] 34 mL/min/{1.73_m2} Low >60 [facility] Comment on above: Non- GFR Calc Glucose measurementOrdered B y: Adam Jasmine on 01-02-2025 Glucose [Mass/Vol] 115 mg/dL High 74-106 [facility] Comment on above: Fasting Glucose resu lt from 100 to 125 mg/dL suggests IMPAIRED HOMEOSTASIS per A.D.A. criteria. Hematocrit Auto (Bld) [Volum e fraction]Ordered By: Adam Ferraro on 01-02-2025 Hematocrit (Bld) [Volume fraction] 40.5 % 40-54 [facility] Hemoglobin measurementOrdere d By: Adam Ferraro on 01-02-2025 Hemoglobin (Bld) [Mass/Vol] 13.4 g/dL 13.0-16.5 [facility] Immature granulocytes/100 WB C Auto (Bld)Ordered By: Adam Ferraro on 01-02-2025 Immature granulocytes/100 WBC (Bld) 0.500 % 0.0-0.9 [facility] Comment on above: IG% - Immature Granu locytes (promyelocytes, myelocytes and metamyelocytes) > 1% indicates that a LEFT SHIFT is Present. Laboratory - Chemistry and C hemistry - challengeOrdered By: Adam Ferraro on 01-02-2025 AST [Catalytic activity/Vol] 12 U/L Low 15-37 [facility] Lithiumon 01-02-2025 LI 0.60 mmol/L Normal 0.60-1.20 [facility] Comment on above: Order Comment: 111.2 UNKNOWN [id number] 0000 Performed By: #### L [id number] #### [facility] [address] [facility] [place], [address] [place] levelOrdered By: Benoit Ferraro on 01-02-2025 [place] Level 0.60 mmol/L 0.60-1.20 [facility] Lymphocytes Auto (Unsp spec) [#/Vol]Ordered By: Adam Ferraro on 01-02-2025 Lymphocytes (Bld) [#/Vol] 2.41 10*3/uL 0.83-4.5 1 [facility] Lymphocytes/100 WBC Auto (Un sp spec)Ordered By: Adam Ferraro on 01-02-2025 Lymphocytes/100 WBC (Bld) 25.1 % 19-41 [facility] MCV (mean corpuscular volume ) determinationOrdered By: Adam Ferraro on 01-02-2025 MCV (RBC) [Entitic vol] 90.8 fL 80-94 [facility] Mean corpuscular hemoglobin (MCH) determinationOrdered By: Adam Ferraro on 01-02-2025 MCH (RBC) [Entitic mass] 30.0 pg 27.0-32.0 [facility] Mean corpuscular hemoglobin concentration (MCHC) determinationOrdered By: Adam Ferraro on 01-02-2025 MCHC (RBC) [Mass/Vol] 33.1 g/dL 32-36 [facility] Mean platelet volume determi nationOrdered By: Adam Ferraro on 01-02-2025 Platelet mean volume (Bld) [Entitic vol] 9.5 fL 6.2-12.0 [facility] Monocyte percentageOrdered B y: Adam Ferraro on 01-02-2025 Monocytes/100 WBC (Bld) 9.4 % 0-10 [facility] Neutrophil percentageOrdered By: Adam Ferraro on 01-02-2025 Neutrophils/100 WBC (Bld) 58.6 % 47-70 [facility] Nucleated red blood cell per centageOrdered By: Adam Ferraro on 01-02-2025 Nucleated RBC/100 WBC (Bld) [Ratio] 0 % 0-5 [facility] Phosphoruson 01-02-2025 Phosphate [Mass/Vol] 4.7 mg/dL Normal 2.5-4.9 [facility] Comment on above: Order Comment: 111.2 UNKNOWN [id number] 0000 Performed By: #### L [id number] #### [facility] [address] [place] [address], [address] Phosphorus measurementOrdere d By: Adam Ferraro on 01-02-2025 Phosphorus Level 4.7 mg/dL 2.5-4.9 [facility] Platelet countOrdered By: Sabino Ferraro on 01-02-2025 Platelets (Bld) [#/Vol] 247 10*3/uL 150-450 [facility] Potassium measurementOrdered By: Adam Ferraro on 01-02-2025 Potassium [Moles/Vol] 4.1 mmol/L 3.5-5.1 [facility] RBC Auto (Bld) [#/Vol]Ordere d By: dAam Ferraro on 01-02-2025 RBC (Bld) [#/Vol] 4.46 10*6/uL Low 4.6-6.2 [facility] Serum anion gap measurementO rdered By: Adam Ferraro on 01-02-2025 Anion gap [Moles/Vol] 7 mmol/L 5-15 [facility] Serum globulin measurementOr dered By: Adam Ferraro on 01-02-2025 Globulin (S) [Mass/Vol] 3.1 g/dL 2.2-4.2 [facility] Serum or plasma alanine sesay otransferase (ALT) measurementOrdered By: Adam Ferraro on 01-02-2025 ALT [Catalytic activity/Vol] 17 U/L 16-61 [facility] Serum or plasma albumin you urement (mass/volume)Ordered By: Adam Ferraro on 01-02-2025 Albumin [Mass/Vol] 3.1 g/dL Low 3.2-5.0 [facility] Serum or plasma alkaline hal sphatase measurementOrdered By: Adam Ferraro on 01-02-2025 ALP [Catalytic activity/Vol] 81 U/L 45-117 [facility] Serum or plasma calcium you urement (mass/volume)Ordered By: Adam Ferraro on 01-02-2025 Calcium [Mass/Vol] 9.4 mg/dL 8.5-10.1 [facility] Serum or plasma creatinine m easurement (mass/volume)Ordered By: Adam Ferraro on 01-02-2025 Creatinine [Mass/Vol] 2.14 mg/dL High 0.70-1.30 [facility] Comment on above: The validity of the calculated GFR & GFRAA in patients over 70 years has not been determined. Clinical correlation is essential. Serum or plasma urea nitroge n measurement (mass/volume)Ordered By: Adam Ferraro on 01-02-2025 Urea nitrogen [Mass/Vol] 27 mg/dL High 7-18 [facility] Sodium levelOrdered By: Spike Ferraro on 01-02-2025 Sodium [Moles/Vol] 141 mmol/L 136-145 [facility] Total proteinOrdered By: Benoit loni Jasmine on 01-02-2025 Protein [Mass/Vol] 6.2 g/dL Low 6.4-8.2 [facility] White blood cell (WBC) count Ordered By: Adam Ferraro on 01-02-2025 WBC (Bld) [#/Vol] 9.6 10*3/uL 4.4-11.0 [facility] Albumin to globulin ratioOrd ered By: Adam Ferraro on 12-28-2024 Albumin/Globulin [Mass ratio] 0.9 {ratio} 0.9-2.4 [facility] Bilirubin, totalOrdered By: Adam Ferraro on 12-28-2024 Bilirubin [Mass/Vol] 0.30 mg/dL 0.20-1.00 [facility] Comment on above: For patients on eltr ombopag therapy, use of Dimension Ragland TBIL is not recommended. Blood urea nitrogen (BUN)/cr eatinine ratioOrdered By: Adam Ferraro on 12-28-2024 Urea nitrogen/Creatinine [Mass ratio] 10.0 mg/mg 10-20 [facility] CBC-Complete Blood Cnt No Di ffon 12-28-2024 Erythrocyte distribution width (RBC) [Ratio] 13.1 % Normal 11.6-14.6 [facility] Comment on above: Order Comment: 111.2 Performed By: #### L 100.0500, L500.4050, L501.1400 #### [facility] [address] [place], [address] Hematocrit (Bld) [Volume fraction] 40.4 % Normal 40-54 [facility] Comment on above: Order Comment: 111.2 Performed By: #### L 100.0500, [id number], L501.1400 #### [facility] [address] [place], [address] Hemoglobin (Bld) [Mass/Vol] 13.2 g/dL Normal 13.0-16.5 [facility] Comment on above: Order Comment: 111.2 Performed By: #### L 100.0500, [id number], L501.1400 #### [facility] [address] [place], [address] MCH (RBC) [Entitic mass] 29.7 pg Normal 27.0-32.0 [facility] Comment on above: Order Comment: 111.2 Performed By: #### L 100.0500, [id number], L501.1400 #### [facility] [address] [place], [address] MCHC (RBC) [Mass/Vol] 32.7 g/dL Normal 32-36 [facility] Comment on above: Order Comment: 111.2 Performed By: #### L 100.0500, [id number], L501.1400 #### [facility] [address] [place], [address] MCV (RBC) [Entitic vol] 91.0 fL Normal 80-94 [facility] Comment on above: Order Comment: 111.2 Performed By: #### L 100.0500, [id number], L501.1400 #### [facility] [address] [place], [address] Platelet mean volume (Bld) [Entitic vol] 9.3 fL Normal 6.2-12.0 [facility] Comment on above: Order Comment: 111.2 Performed By: #### L 100.0500, [id number], L501.1400 #### [facility] [address] [place], [address] Platelets (Bld) [#/Vol] 248 10*3/uL Normal 150-450 [facility] Comment on above: Order Comment: 111.2 Performed By: #### L 100.0500, [id number], L501.1400 #### [facility] [address] [place], [address] RBC (Bld) [#/Vol] 4.44 10*6/uL Low 4.6-6.2 [facility] Comment on above: Order Comment: 111.2 Performed By: #### L 100.0500, [id number], L501.1400 #### [facility] [address] [place], [address] RDW SD 42.4 fl Normal 35.1-43.9 [facility] Comment on above: Order Comment: 111.2 Performed By: #### L 100.0500, [id number], L501.1400 #### [facility] [address] [place], [address] WBC (Bld) [#/Vol] 10.5 10*3/uL Normal 4.4-11.0 [facility] Comment on above: Order Comment: 111.2 Performed By: #### L 100.0500, [id number], L501.1400 #### [facility] [address] [place], [address] Carbon dioxide measurementOr dered By: Adam Ferraro on 12-28-2024 CO2 [Moles/Vol] 25.0 mmol/L 21.0-32.0 [facility] Chloride measurementOrdered By: Adam Ferraro on 12-28-2024 Chloride [Moles/Vol] 110 mmol/L High 98-107 [facility] Comprehensive Metabolic Prof ilon 12-28-2024 Albumin [Mass/Vol] 3.0 g/dL Low 3.2-5.0 [facility] Comment on above: Order Comment: 111.2 Performed By: #### L 100.0500, L500.4050, L501.1400 #### [facility] [address] [place], [address] Albumin/Globulin [Mass ratio] 0.9 {ratio} Normal 0.9-2.4 [facility] Comment on above: Order Comment: 111.2 Performed By: #### L 100.0500, [id number], L501.1400 #### [facility] [address] [place], [address] ALK P 81 U/L Normal 45-117 [facility] Comment on above: Order Comment: 111.2 Performed By: #### L 100.0500, [id number], L501.1400 #### [facility] [address] [place], [address] ALT [Catalytic activity/Vol] 20 U/L Normal 16-61 [facility] Comment on above: Order Comment: 111.2 Performed By: #### L 100.0500, [id number], L501.1400 #### [facility] [address] [place], [address] AST [Catalytic activity/Vol] 11 U/L Low 15-37 [facility] Comment on above: Order Comment: 111.2 Performed By: #### L 100.0500, [id number], L501.1400 #### [facility] [address] [place], [address] Bilirubin [Mass/Vol] 0.30 mg/dL Normal 0.20-1.00 [facility] Comment on above: Order Comment: 111.2 Result Comment: For patients on eltrombopag therapy, use of Dimension Ragland TBIL is not recommended. Performed By: #### L 100.0500, L500.4050, L501.1400 #### [facility] [address] [place], [address] BUN/CRE 10.0 RATIO Normal 10-20 [facility] Comment on above: Order Comment: 111.2 Performed By: #### L 100.0500, [id number], L501.1400 #### [facility] [address] [place], [address] CA,Total 9.3 mg/dL Normal 8.5-10.1 [facility] Comment on above: Order Comment: 111.2 Performed By: #### L 100.0500, [id number], L501.1400 #### [facility] [address] [place], [address] Chloride [Moles/Vol] 110 mmol/L High 98-107 [facility] Comment on above: Order Comment: 111.2 Performed By: #### L 100.0500, [id number], L501.1400 #### [facility] [address] [place], [address] CO2 [Moles/Vol] 25.0 mmol/L Normal 21.0-32.0 [facility] Comment on above: Order Comment: 111.2 Performed By: #### L 100.0500, L500.4050, L501.1400 #### [facility] [address] [place], [address] Creatinine [Mass/Vol] 2.09 mg/dL High 0.70-1.30 [facility] Comment on above: Order Comment: 111.2 Result Comment: The validity of the calculated GFR GFRAA in patients over 70 years has not been determined. Clinical correlation is essential. Performed By: #### L 100.0500, L500.4050, L501.1400 #### [facility] [address] [place], [address] EST GFR - AA 42 mL/min Low >60 [facility] Comment on above: Order Comment: 111.2 Result Comment: Afri can Indian GFR Calc Performed By: #### L 100.0500, L500.4050, L501.1400 #### [facility] [address] [place], [address] GAP 6 Normal 5-15 [facility] Comment on above: Order Comment: 111.2 Performed By: #### L 100.0500, L500.4050, L501.1400 #### [facility] [address] [place], [address] GFR/1.73 sq M.predicted among non-blacks MDRD (S/P/Bld) [Vol rate/Area] 34 mL/min/{1.73_m2} Low >60 [facility] Comment on above: Order Comment: 111.2 Result Comment: Non- GFR Calc Performed By: #### L 100.0500, L500.4050, L501.1400 #### [facility] [address] [place], [address] Globulin (S) [Mass/Vol] 3.4 g/dL Normal 2.2-4.2 [facility] Comment on above: Order Comment: 111.2 Performed By: #### L 100.0500, L500.4050, L501.1400 #### [facility] [address] [place], [address] Glucose [Mass/Vol] 119 mg/dL High 74-106 [facility] Comment on above: Order Comment: 111.2 Result Comment: Fast ing Glucose result from 100 to 125 mg/dL suggests IMPAIRED HOMEOSTASIS per A.D.A. criteria. Performed By: #### L 100.0500, L500.4050, L501.1400 #### [facility] [address] [place], [address] Potassium [Moles/Vol] 4.3 mmol/L Normal 3.5-5.1 [facility] Comment on above: Order Comment: 111.2 Performed By: #### L 100.0500, L500.4050, L501.1400 #### [facility] [address] [place], [address] Sodium [Moles/Vol] 141 mmol/L Normal 136-145 [facility] Comment on above: Order Comment: 111.2 Performed By: #### L 100.0500, L500.4050, L501.1400 #### [facility] [address] [place], [address] T PROT 6.4 g/dL Normal 6.4-8.2 [facility] Comment on above: Order Comment: 111.2 Performed By: #### L 100.0500, L500.4050, L501.1400 #### [facility] [address] [place], [place], [id number] Urea nitrogen [Mass/Vol] 21 mg/dL High 7-18 [facility] Comment on above: Order Comment: 111.2 Performed By: #### L 100.0500, L500.4050, L501.1400 #### [facility] [address] [place], [place], [address] Erythrocyte distribution wid th ratioOrdered By: Adam Ferraro on 12-28-2024 Erythrocyte distribution width (RBC) [Ratio] 13.1 % 11.6-14.6 [facility] Erythrocyte distribution wid th standard deviationOrdered By: Adam Ferraro on 12-28-2024 Erythrocyte distribution width (RBC) [Entitic vol] 42.4 fL 35.1-43.9 [facility] Erythrocyte distribution width (RBC) [Ratio] 42.4 fl 35.1-43.9 [facility] Estimated glomerular filtrat ion rate (GFR) AmericanOrdered By: Adam Ferraro on 12-28-2024 Estimated GFR (MDRD) Amer 42 mL/min Low >60 [facility] Comment on above: GFR Calc Glomerular filtration rate ( GFR) estimationOrdered By: Adam Ferraro on 12-28-2024 Estimated GFR (MDRD) Non-Af Amer 34 mL/min Low >60 [facility] Comment on above: Non- GFR Calc GFR/1.73 sq M.predicted among non-blacks MDRD (S/P/Bld) [Vol rate/Area] 34 mL/min/{1.73_m2} Low >60 [facility] Comment on above: Non- GFR Calc Glucose measurementOrdered B y: Adam Ferraro on 12-28-2024 Glucose [Mass/Vol] 119 mg/dL High 74-106 [facility] Comment on above: Fasting Glucose resu lt from 100 to 125 mg/dL suggests IMPAIRED HOMEOSTASIS per A.D.A. criteria. Hematocrit Auto (Bld) [Volum e fraction]Ordered By: Adam Ferraro on 12-28-2024 Hematocrit (Bld) [Volume fraction] 40.4 % 40-54 [facility] Hemoglobin measurementOrdere d By: Adam Ferraro on 12-28-2024 Hemoglobin (Bld) [Mass/Vol] 13.2 g/dL 13.0-16.5 [facility] - Chemistry and C hemistry - challengeOrdered By: Adam Ferraro on 12-28-2024 AST [Catalytic activity/Vol] 11 U/L Low 15-37 [facility] MCV (mean corpuscular volume ) determinationOrdered By: Adam Ferraro on 12-28-2024 MCV (RBC) [Entitic vol] 91.0 fL 80-94 [facility] Mean corpuscular hemoglobin (MCH) determinationOrdered By: Adam Ferraro on 12-28-2024 MCH (RBC) [Entitic mass] 29.7 pg 27.0-32.0 [facility] Mean corpuscular hemoglobin concentration (MCHC) determinationOrdered By: Adam Ferraro on 12-28-2024 MCHC (RBC) [Mass/Vol] 32.7 g/dL 32-36 [facility] Mean platelet volume determi nationOrdered By: Adam Ferraro on 12-28-2024 Platelet mean volume (Bld) [Entitic vol] 9.3 fL 6.2-12.0 [facility] Platelet countOrdered By: Sabino Ferraro on 12-28-2024 Platelets (Bld) [#/Vol] 248 10*3/uL 150-450 [facility] Potassium measurementOrdered By: Adam Ferraro on 12-28-2024 Potassium [Moles/Vol] 4.3 mmol/L 3.5-5.1 [facility] RBC Auto (Bld) [#/Vol]Ordere d By: Adam Ferraro on 12-28-2024 RBC (Bld) [#/Vol] 4.44 10*6/uL Low 4.6-6.2 [facility] Serum anion gap measurementO rdered By: Adam Ferraro on 12-28-2024 Anion gap [Moles/Vol] 6 mmol/L 5-15 [facility] Serum globulin measurementOr dered By: Adam Ferraro on 12-28-2024 Globulin (S) [Mass/Vol] 3.4 g/dL 2.2-4.2 [facility] Serum or plasma alanine sesay otransferase (ALT) measurementOrdered By: Adam Ferraro on 12-28-2024 ALT [Catalytic activity/Vol] 20 U/L 16-61 [facility] Serum or plasma albumin you urement (mass/volume)Ordered By: Adam Ferraro on 12-28-2024 Albumin [Mass/Vol] 3.0 g/dL Low 3.2-5.0 [facility] Serum or plasma alkaline hal sphatase measurementOrdered By: Adam Ferraro on 12-28-2024 ALP [Catalytic activity/Vol] 81 U/L 45-117 [facility] Serum or plasma calcium you urement (mass/volume)Ordered By: Adam Ferraro on 12-28-2024 Calcium [Mass/Vol] 9.3 mg/dL 8.5-10.1 [facility] Serum or plasma creatinine m easurement (mass/volume)Ordered By: Adam Ferraro on 12-28-2024 Creatinine [Mass/Vol] 2.09 mg/dL High 0.70-1.30 [facility] Comment on above: The validity of the calculated GFR & GFRAA in patients over 70 years has not been determined. Clinical correlation is essential. Serum or plasma urea nitroge n measurement (mass/volume)Ordered By: Adam Ferraro on 12-28-2024 Urea nitrogen [Mass/Vol] 21 mg/dL High 7-18 [facility] Serum or plasma uric acid me asurement (mass/volume)Ordered By: Adam Ferraro on 12-28-2024 Urate [Mass/Vol] 5.8 mg/dL 3.5-7.2 [facility] Comment on above: The drugs N-Acetylcy steine and Metamizole may falsely depress this assay. Sodium levelOrdered By: Spike Ferraro on 12-28-2024 Sodium [Moles/Vol] 141 mmol/L 136-145 [facility] Total proteinOrdered By: Benoit Ferraro on 12-28-2024 Protein [Mass/Vol] 6.4 g/dL 6.4-8.2 [facility] Uric Acidon 12-28-2024 URIC 5.8 mg/dL Normal 3.5-7.2 [facility] Comment on above: Order Comment: 111.2 Result Comment: The drugs N-Acetylcysteine and Metamizole may falsely depress this assay. Performed By: #### L 100.0500, L500.4050, L501.1400 #### [facility] [address] [place], [address] White blood cell (WBC) count Ordered By: Adam Ferraro on 12-28-2024 WBC (Bld) [#/Vol] 10.5 10*3/uL 4.4-11.0 [facility] Serum or plasma uric acid me asurement (mass/volume)Ordered By: Adam Ferraro on 11-27-2024 Urate [Mass/Vol] 5.8 mg/dL 3.5-7.2 [facility] Comment on above: The drugs N-Acetylcy steine and Metamizole may falsely depress this assay. Uric Acidon 11-27-2024 URIC 5.8 mg/dL Normal 3.5-7.2 [facility] Comment on above: Order Comment: 111-2 Result Comment: The drugs N-Acetylcysteine and Metamizole may falsely depress this assay. Performed By: #### L 500.4050, L501.2300, L501.9060, L100.0100 #### [facility] [address] [place], [address] Absolute neutrophil countOrd ered By: Adam Ferraro on 11-15-2024 Neutrophils (Bld) [#/Vol] 6.8 10*3/uL 2.0-7.7 [facility] Basic Metabolic Profile (BMP )on 11-15-2024 BUN/CRE 10.0 RATIO Normal 10-20 [facility] Comment on above: Order Comment: 111.2 Performed By: #### L 100.0500, L500.4050, L501.1400 #### [facility] [address] [place], [address] CA,Total 9.6 mg/dL Normal 8.5-10.1 [facility] Comment on above: Order Comment: 111.2 Performed By: #### L 100.0500, L500.4050, L501.1400 #### [facility] [address] [place], [address] Chloride [Moles/Vol] 108 mmol/L High 98-107 [facility] Comment on above: Order Comment: 111.2 Performed By: #### L 100.0500, L500.4050, L501.1400 #### [facility] [address] [place], [address] CO2 [Moles/Vol] 23.0 mmol/L Normal 21.0-32.0 [facility] Comment on above: Order Comment: 111.2 Performed By: #### L 100.0500, L500.4050, L501.1400 #### [facility] [address] [place], [address] Creatinine [Mass/Vol] 2.30 mg/dL High 0.70-1.30 [facility] Comment on above: Order Comment: 111.2 Result Comment: The validity of the calculated GFR GFRAA in patients over 70 years has not been determined. Clinical correlation is essential. Performed By: #### L 100.0500, L500.4050, L501.1400 #### [facility] [address] [place], [address] EST GFR - AA 37 mL/min Low >60 [facility] Comment on above: Order Comment: 111.2 Result Comment: Afri can Indian GFR Calc Performed By: #### L 100.0500, L500.4050, L501.1400 #### [facility] [address] [place], [address] GAP 8 Normal 5-15 [facility] Comment on above: Order Comment: 111.2 Performed By: #### L 100.0500, L500.4050, L501.1400 #### [facility] [address] [place], [address] GFR/1.73 sq M.predicted among non-blacks MDRD (S/P/Bld) [Vol rate/Area] 31 mL/min/{1.73_m2} Low >60 [facility] Comment on above: Order Comment: 111.2 Result Comment: Non- GFR Calc Performed By: #### L 100.0500, L500.4050, L501.1400 #### [facility] [address] [place], [address] Glucose [Mass/Vol] 114 mg/dL High 74-106 [facility] Comment on above: Order Comment: 111.2 Result Comment: Fast ing Glucose result from 100 to 125 mg/dL suggests IMPAIRED HOMEOSTASIS per A.D.A. criteria. Performed By: #### L 100.0500, L500.4050, L501.1400 #### [facility] [address] [place], [address] Potassium [Moles/Vol] 4.2 mmol/L Normal 3.5-5.1 [facility] Comment on above: Order Comment: 111.2 Performed By: #### L 100.0500, L500.4050, L501.1400 #### [facility] [address] [place], [address] Sodium [Moles/Vol] 140 mmol/L Normal 136-145 [facility] Comment on above: Order Comment: 111.2 Performed By: #### L 100.0500, L500.4050, L501.1400 #### [facility] [address] [place], [address] Urea nitrogen [Mass/Vol] 23 mg/dL High 7-18 [facility] Comment on above: Order Comment: 111.2 Performed By: #### L 100.0500, L500.4050, L501.1400 #### [facility] [address] [place], [address] Basophil percentageOrdered B y: Adam Ferraro on 11-15-2024 Basophils/100 WBC (Bld) 1.2 % High 0-1 [facility] Blood urea nitrogen (BUN)/cr eatinine ratioOrdered By: Adam Ferraro on 11-15-2024 Urea nitrogen/Creatinine [Mass ratio] 10.0 mg/mg 10-20 [facility] CBC W/Diff, Automatedon Absolute Lymph 2.67 X10 3/uL Normal 0.83-4.51 [facility] Comment on above: Order Comment: 111.2 Performed By: #### L 100.0500, L500.4050, L501.1400 #### [facility] [address] [place], [address] Absolute Neut 6.8 X10 3/uL Normal 2.0-7.7 [facility] Comment on above: Order Comment: 111.2 Performed By: #### L 100.0500, L500.4050, L501.1400 #### [facility] [address] [place], [address] Basophils/100 WBC (Bld) 1.2 % High 0-1 [facility] Comment on above: Order Comment: 111.2 Performed By: #### L 100.0500, L500.4050, L501.1400 #### [facility] [address] [place], [address] Eosinophils/100 WBC (Bld) 4.6 % Normal 0-5 [facility] Comment on above: Order Comment: 111.2 Performed By: #### L 100.0500, L500.4050, L501.1400 #### [facility] [address] [place], [address] Erythrocyte distribution width (RBC) [Ratio] 12.9 % Normal 11.6-14.6 [facility] Comment on above: Order Comment: 111.2 Performed By: #### L 100.0500, L500.4050, L501.1400 #### [facility] [address] [place], [address] Hematocrit (Bld) [Volume fraction] 41.5 % Normal 40-54 [facility] Comment on above: Order Comment: 111.2 Performed By: #### L 100.0500, L500.4050, L501.1400 #### [facility] [address] [place], [address] Hemoglobin (Bld) [Mass/Vol] 13.6 g/dL Normal 13.0-16.5 [facility] Comment on above: Order Comment: 111.2 Performed By: #### L 100.0500, L500.4050, L501.1400 #### [facility] [address] [place], [address] IG% 0.500 Normal 0.0-0.9 [facility] Comment on above: Order Comment: 111.2 Result Comment: IG% - Immature Granulocytes (promyelocytes, myelocytes and metamyelocytes) > 1% indicates that a LEFT SHIFT is Present. Performed By: #### L 100.0500, L500.4050, L501.1400 #### [facility] [address] [place], [address] Lymphocytes/100 WBC (Bld) 23.8 % Normal 19-41 [facility] Comment on above: Order Comment: 111.2 Performed By: #### L 100.0500, L500.4050, L501.1400 #### [facility] [address] [place], [address] MCH (RBC) [Entitic mass] 29.9 pg Normal 27.0-32.0 [facility] Comment on above: Order Comment: 111.2 Performed By: #### L 100.0500, L500.4050, L501.1400 #### [facility] [address] [place], [address] MCHC (RBC) [Mass/Vol] 32.8 g/dL Normal 32-36 [facility] Comment on above: Order Comment: 111.2 Performed By: #### L 100.0500, L500.4050, L501.1400 #### [facility] [address] [place], [address] MCV (RBC) [Entitic vol] 91.2 fL Normal 80-94 [facility] Comment on above: Order Comment: 111.2 Performed By: #### L 100.0500, L500.4050, L501.1400 #### [facility] [address] [place], [address] Monocytes/100 WBC (Bld) 9.8 % Normal 0-10 [facility] Comment on above: Order Comment: 111.2 Performed By: #### L 100.0500, L500.4050, L501.1400 #### [facility] [address] [place], [address] Neutrophils/100 WBC (Bld) 60.1 % Normal 47-70 [facility] Comment on above: Order Comment: 111.2 Performed By: #### L 100.0500, L500.4050, L501.1400 #### [facility] [address] [place], [address] Nucleated RBC (Bld) [#/Vol] 0 10*3/uL Normal 0-5 [facility] Comment on above: Order Comment: 111.2 Performed By: #### L 100.0500, L500.4050, L501.1400 #### [facility] [address] [place], [address] Platelet mean volume (Bld) [Entitic vol] 9.5 fL Normal 6.2-12.0 [facility] Comment on above: Order Comment: 111.2 Performed By: #### L 100.0500, L500.4050, L501.1400 #### [facility] [address] [place], [address] Platelets (Bld) [#/Vol] 257 10*3/uL Normal 150-450 [facility] Comment on above: Order Comment: 111.2 Performed By: #### L 100.0500, L500.4050, L501.1400 #### [facility] [address] [place], [address] RBC (Bld) [#/Vol] 4.55 10*6/uL Low 4.6-6.2 [facility] Comment on above: Order Comment: 111.2 Performed By: #### L 100.0500, L500.4050, L501.1400 #### [facility] [address] [place], [address] RDW SD 42.9 fl Normal 35.1-43.9 [facility] Comment on above: Order Comment: 111.2 Performed By: #### L 100.0500, L500.4050, L501.1400 #### [facility] [address] [place], [address] WBC (Bld) [#/Vol] 11.2 10*3/uL High 4.4-11.0 [facility] Comment on above: Order Comment: 111.2 Performed By: #### L 100.0500, L500.4050, L501.1400 #### [facility] [address] [place], [address] Carbon dioxide measurementOr dered By: Adam Ferraro on 11-15-2024 CO2 [Moles/Vol] 23.0 mmol/L 21.0-32.0 [facility] Chloride measurementOrdered By: Adam Ferraro on 11-15-2024 Chloride [Moles/Vol] 108 mmol/L High 98-107 [facility] Eosinophil percentageOrdered By: Adam Ferraro on 11-15-2024 Eosinophils/100 WBC (Bld) 4.6 % 0-5 [facility] Erythrocyte distribution wid th ratioOrdered By: Adam Ferraro on 11-15-2024 Erythrocyte distribution width (RBC) [Ratio] 12.9 % 11.6-14.6 [facility] Erythrocyte distribution wid th standard deviationOrdered By: Adam Ferraro on 11-15-2024 Erythrocyte distribution width (RBC) [Entitic vol] 42.9 fL 35.1-43.9 [facility] Estimated glomerular filtrat ion rate (GFR) AmericanOrdered By: Adam Ferraro on 11-15-2024 Estimated GFR (MDRD) Amer 37 mL/min Low >60 [facility] Comment on above: GFR Calc Glomerular filtration rate ( GFR) estimationOrdered By: Adam Ferraro on 11-15-2024 Estimated GFR (MDRD) Non-Af Amer 31 mL/min Low >60 [facility] Comment on above: Non- GFR Calc Glucose measurementOrdered B y: Adam Ferraro on 11-15-2024 Glucose [Mass/Vol] 114 mg/dL High 74-106 [facility] Comment on above: Fasting Glucose resu lt from 100 to 125 mg/dL suggests IMPAIRED HOMEOSTASIS per A.D.A. criteria. Hematocrit Auto (Bld) [Volum e fraction]Ordered By: Adam Ferraro on 11-15-2024 Hematocrit (Bld) [Volume fraction] 41.5 % 40-54 [facility] Hemoglobin measurementOrdere d By: Adam Ferraro on 11-15-2024 Hemoglobin (Bld) [Mass/Vol] 13.6 g/dL 13.0-16.5 [facility] Immature granulocytes/100 WB C Auto (Bld)Ordered By: Adam Ferraro on 11-15-2024 Immature granulocytes/100 WBC (Bld) 0.500 % 0.0-0.9 [facility] Comment on above: IG% - Immature Granu locytes (promyelocytes, myelocytes and metamyelocytes) > 1% indicates that a LEFT SHIFT is Present. Lithiumon 11-15-2024 LI 0.60 mmol/L Normal 0.60-1.20 [facility] Comment on above: Order Comment: 111.2 Performed By: #### L 100.0500, L500.4050, L501.1400 #### [facility] [address] [place], [address] [place] levelOrdered By: Benoit Ferraro on 11-15-2024 [place] Level 0.60 mmol/L 0.60-1.20 [facility] Lymphocytes Auto (Unsp spec) [#/Vol]Ordered By: Adam Ferraro on 11-15-2024 Lymphocytes (Bld) [#/Vol] 2.67 10*3/uL 0.83-4.5 1 [facility] Lymphocytes/100 WBC Auto (Un sp spec)Ordered By: Adam Ferraro on 11-15-2024 Lymphocytes/100 WBC (Bld) 23.8 % 19-41 [facility] MCV (mean corpuscular volume ) determinationOrdered By: Adam Ferraro on 11-15-2024 MCV (RBC) [Entitic vol] 91.2 fL 80-94 [facility] Mean corpuscular hemoglobin (MCH) determinationOrdered By: Adam Ferraro on 11-15-2024 MCH (RBC) [Entitic mass] 29.9 pg 27.0-32.0 [facility] Mean corpuscular hemoglobin concentration (MCHC) determinationOrdered By: Adam Ferraro on 11-15-2024 MCHC (RBC) [Mass/Vol] 32.8 g/dL 32-36 [facility] Mean platelet volume determi nationOrdered By: Adam Ferraro on 11-15-2024 Platelet mean volume (Bld) [Entitic vol] 9.5 fL 6.2-12.0 [facility] Microalb:Creat Ratio,Random URon 11-15-2024 Creatinine [Mass/Vol] 50.60 mg/dL Normal NO RAN GE EST. [facility] Comment on above: Performed By: #### L 100.0500, L500.4050, L501.1400 #### [facility] [address] [place], [place], [id number] MALB:CRE TNP Normal <30 mg/g CRE [facility] Comment on above: Performed By: #### L 100.0500, L500.4050, L501.1400 #### [facility] [address] [place], [place], [address] MICROALBUMIN,UR < 5.0 Normal NO RANGE EST. [facility] Comment on above: Performed By: #### L 100.0500, L500.4050, L501.1400 #### [facility] [address] [place], [address] Monocyte percentageOrdered B y: Adam Ferraro on 11-15-2024 Monocytes/100 WBC (Bld) 9.8 % 0-10 [facility] Neutrophil percentageOrdered By: Adam Ferraro on 11-15-2024 Neutrophils/100 WBC (Bld) 60.1 % 47-70 [facility] Nucleated red blood cell per centageOrdered By: Adam Ferraro on 11-15-2024 Nucleated RBC/100 WBC (Bld) [Ratio] 0 % 0-5 [facility] Platelet countOrdered By: Sabino Ferraro on 11-15-2024 Platelets (Bld) [#/Vol] 257 10*3/uL 150-450 [facility] Potassium measurementOrdered By: Adam Ferraro on 11-15-2024 Potassium [Moles/Vol] 4.2 mmol/L 3.5-5.1 [facility] RBC Auto (Bld) [#/Vol]Ordere d By: Adam Ferraro on 11-15-2024 RBC (Bld) [#/Vol] 4.55 10*6/uL Low 4.6-6.2 [facility] Random urine microalbumin me asurementOrdered By: Adam Ferraro on 11-15-2024 Urine Random Microalbumin < 5.0 mg/L NO RANGE EST. [facility] Serum anion gap measurementO rdered By: Adam Ferraro on 11-15-2024 Anion gap [Moles/Vol] 8 mmol/L 5-15 [facility] Serum or plasma calcium you urement (mass/volume)Ordered By: Adam Ferraro on 11-15-2024 Calcium [Mass/Vol] 9.6 mg/dL 8.5-10.1 [facility] Serum or plasma creatinine m easurement (mass/volume)Ordered By: Adam Ferraro on 11-15-2024 Creatinine [Mass/Vol] 2.30 mg/dL High 0.70-1.30 [facility] Comment on above: The validity of the calculated GFR & GFRAA in patients over 70 years has not been determined. Clinical correlation is essential. Serum or plasma urea nitroge n measurement (mass/volume)Ordered By: Adam Ferraro on 11-15-2024 Urea nitrogen [Mass/Vol] 23 mg/dL High 7-18 [facility] Sodium levelOrdered By: Spike Ferraro on 11-15-2024 Sodium [Moles/Vol] 140 mmol/L 136-145 [facility] Urine albumin/creatinine rat io for detection of microalbuminuriaOrdered By: Adam Ferraro on 11-15-2024 Urine Microalbumin/Creatinine Ratio TNP [facility] Comment on above: Test not performed Urine creatinine measurement (mass/volume)Ordered By: Adam Ferraro on 11-15-2024 Creatinine (U) [Mass/Vol] 50.60 mg/dL NO RANGE EST. [facility] White blood cell (WBC) count Ordered By: Adam Ferraro on 11-15-2024 WBC (Bld) [#/Vol] 11.2 10*3/uL High 4.4-11.0 [facility] Serum or plasma uric acid me asurement (mass/volume)Ordered By: Adam Ferraro on 09-27-2024 Urate [Mass/Vol] 5.4 mg/dL 3.5-7.2 [facility] Comment on above: The drugs N-Acetylcy steine and Metamizole may falsely depress this assay. Uric Acidon 09-27-2024 URIC 5.4 mg/dL Normal 3.5-7.2 [facility] Comment on above: Order Comment: 111.2 Result Comment: The drugs N-Acetylcysteine and Metamizole may falsely depress this assay. Performed By: #### L 100.0500, L500.4050, L501.1400 #### [facility] [address] [place], [address] CNOVon 09-14-2024 CNOV Office Visit (RHBATH ) REGGIE LEÓN ([id number]) 1965 M Date Time Provider Department 09/14/24 [...] HISTORY Diagnosis Date Bipolar disorder, unspecified ([facility]) [facility] 18 [facility]; stable on meds Chronic systolic CHF (congestive heart failure) ([facility]) 03/19/2021 Convulsions ([facility]) 08/10/2019 Diabetes ([facility]) Diabetes mellitus ([facility]) Diverticulosis of colon (without mention of hemorrhage) DVT (deep venous thrombosis) ([facility]) 2014 rina-op. on anticoagulants, 2016 Erosive esophagitis 02/11/2010 See EGD 2007 Family history of epilepsy Paternal uncle's son had epilepsy Gastritis, chronic 02/11/2010 Severe, per EGD 2007 -- see notes; Feels best on twice-daily PPI History of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 correlation is essential. Serum or plasma urea nitroge n measurement (mass/volume)Ordered By: Adam Ferraro on 11-11-2023 Urea nitrogen [Mass/Vol] 18 mg/dL 7-18 [facility] Serum or plasma uric acid me asurement (mass/volume)Ordered By: Adam Ferraro on 10-27-2023 Urate [Mass/Vol] 8.1 mg/dL 3.5-7.2 [facility] Comment on above: The drugs N-Acetylcy steine and Metamizole may falsely depress this assay. Absolute lymphocyte countOrd ered By: Alfredo Phipps on 10-14-2023 Lymphocytes Auto (Unsp spec) [#/Vol] 1.52 10*3/uL 0.83-4.51 [facility] Basophil percentageOrdered B y: Alfredo Phipps on 10-14-2023 Basophil percentage 3.2 mg/dL 2.5-4.9 [facility] Basophils/100 WBC (Bld) 1.2 % 0-1 [facility] Chloride [Moles/Vol] 110 mmol/L 98-107 [facility] Eosinophils/100 WBC (Bld) 5.0 % 0-5 [facility] Glucose [Mass/Vol] 151 mg/dL 74-106 [facility] Comment on above: Fasting Glucose resu lt greater than or equal to 126 mg/dL suggests DIABETES MELLITUS per A.D.A. criteria. Neutrophils (Bld) [#/Vol] 6.6 10*3/uL 2.0-7.7 [facility] Neutrophils/100 WBC (Bld) 68.8 % 47-70 [facility] Potassium [Moles/Vol] 3.8 mmol/L 3.5-5.1 [facility] Sodium [Moles/Vol] 141 mmol/L 136-145 [facility] WBC (Bld) [#/Vol] 9.5 10*3/uL 4.4-11.0 [facility] Blood erythrocytes count (nu mber/volume)Ordered By: Alfredo Phipps on 10-14-2023 RBC (Bld) [#/Vol] 4.51 10*6/uL 4.6-6.2 [facility] Blood hemoglobin measurement (mass/volume)Ordered By: Alfredo Phipps on 10-14-2023 Hemoglobin (Bld) [Mass/Vol] 13.0 g/dL 13.0-16.5 [facility] Blood lymphocytes/100 leukoc ytesOrdered By: Alfredo Phipps on 10-14-2023 Lymphocytes/100 WBC (Bld) 15.9 % 19-41 [facility] Blood monocytes/100 leukocyt esOrdered By: Alfredo Phipps on 10-14-2023 Monocytes/100 WBC (Bld) 8.3 % 0-10 [facility] Blood platelet mean volumeOr dered By: Alfredo Phipps on 10-14-2023 Platelet mean volume (Bld) [Entitic vol] 9.7 fL 6.2-12.0 [facility] Determination of erythrocyte mean corpuscular volume (MCV)Ordered By: Alfredo Phipps on 10-14-2023 MCV (RBC) [Entitic vol] 90.2 fL 80-94 [facility] Hematocrit Auto (Bld) [Volum e fraction]Ordered By: Alfredo Phipps on 10-14-2023 Hematocrit (Bld) [Volume fraction] 40.7 % 40-54 [facility] - Chemistry and C hemistry - challengeOrdered By: Alfredo Phipps on 10-14-2023 CO2 [Moles/Vol] 26.0 mmol/L 21.0-32.0 [facility] Urea nitrogen/Creatinine [Mass ratio] 7.5 mg/mg 10-20 [facility] - Hematology and Cell countsOrdered By: Alfredo Phipps on 10-14-2023 Erythrocyte distribution width (RBC) [Entitic vol] 43.6 fL 35.1-43.9 [facility] Erythrocyte distribution width (RBC) [Ratio] 13.2 % 11.6-14.6 [facility] Immature granulocytes/100 WBC (Bld) 0.800 % 0.0-0.9 [facility] Comment on above: IG% - Immature Granu locytes (promyelocytes, myelocytes and metamyelocytes) > 1% indicates that a LEFT SHIFT is Present. MCH (RBC) [Entitic mass] 28.8 pg 27.0-32.0 [facility] Nucleated RBC/100 WBC (Bld) [Ratio] 0 % 0-5 [facility] MCHC Auto (RBC) [Mass/Vol]Or dered By: Alfredo Phipps on 10-14-2023 MCHC (RBC) [Mass/Vol] 31.9 g/dL 32-36 [facility] No Panel InformationOrdered By: Alfredo Phipps on 10-14-2023 Estimated GFR (MDRD) Amer 41 mL/min >60 [facility] Comment on above: GFR Calc Estimated GFR (MDRD) Non-Af Amer 34 mL/min >60 [facility] Comment on above: Non- GFR Calc [place] Level 0.50 mmol/L 0.60-1.20 [facility] Platelets bldOrdered By: Jennifer Phipps on 10-14-2023 Platelets (Bld) [#/Vol] 224 10*3/uL 150-450 [facility] Serum or plasma albumin you urement (mass/volume)Ordered By: Alfredo Phipps on 10-14-2023 Albumin [Mass/Vol] 2.9 g/dL 3.2-5.0 [facility] Serum or plasma calcium you urement (mass/volume)Ordered By: Alfredo Phipps on 10-14-2023 Calcium [Mass/Vol] 8.5 mg/dL 8.5-10.1 [facility] Serum or plasma creatinine m easurement (mass/volume)Ordered By: Alfredo Phipps on 10-14-2023 Creatinine [Mass/Vol] 2.12 mg/dL 0.70-1.30 [facility] Comment on above: The validity of the calculated GFR & GFRAA in patients over 70 years has not been determined. Clinical correlation is essential. Serum or plasma urea nitroge n measurement (mass/volume)Ordered By: Alfredo Phipps on 10-14-2023 Urea nitrogen [Mass/Vol] 16 mg/dL 7-18 [facility] Urine creatinine measurement (mass/volume)Ordered By: Alfredo Phipps on 10-14-2023 Creatinine (U) [Mass/Vol] 195.00 mg/dL NO RANGE EST. [facility] Urine protein measurement (m ass/volume)Ordered By: Alfredo Phipps on 10-14-2023 Protein (U) [Mass/Vol] 23.4 mg/dL 0.0-11.8 [facility] Urine protein/creatinine mas s ratioOrdered By: Alfredo Phipps on 10-14-2023 Protein/Creatinine (U) [Mass ratio] 120 mg/g CRE 0-200 [facility] Serum or plasma uric acid me asurement (mass/volume)Ordered By: Adam Ferraro on 09-27-2023 Urate [Mass/Vol] 7.3 mg/dL 3.5-7.2 [facility] Comment on above: The drugs N-Acetylcy steine and Metamizole may falsely depress this assay. Absolute lymphocyte countOrd ered By: Alfredo Phipps on 09-16-2023 Lymphocytes Auto (Unsp spec) [#/Vol] 1.78 10*3/uL 0.83-4.51 [facility] Basophil percentageOrdered B y: Alfredo Phipps on 09-16-2023 Basophil percentage 4.3 mg/dL 2.5-4.9 [facility] Basophils/100 WBC (Bld) 1.0 % 0-1 [facility] Chloride [Moles/Vol] 109 mmol/L 98-107 [facility] Eosinophils/100 WBC (Bld) 4.4 % 0-5 [facility] Glucose [Mass/Vol] 143 mg/dL 74-106 [facility] Comment on above: Fasting Glucose resu lt greater than or equal to 126 mg/dL suggests DIABETES MELLITUS per A.D.A. criteria. Neutrophils (Bld) [#/Vol] 6.3 10*3/uL 2.0-7.7 [facility] Neutrophils/100 WBC (Bld) 67.0 % 47-70 [facility] Potassium [Moles/Vol] 4.1 mmol/L 3.5-5.1 [facility] Sodium [Moles/Vol] 139 mmol/L 136-145 [facility] WBC (Bld) [#/Vol] 9.4 10*3/uL 4.4-11.0 [facility] Blood erythrocytes count (nu mber/volume)Ordered By: Alfredo Phipps on 09-16-2023 RBC (Bld) [#/Vol] 4.63 10*6/uL 4.6-6.2 [facility] Blood hemoglobin measurement (mass/volume)Ordered By: Alfredo Phipps on 09-16-2023 Hemoglobin (Bld) [Mass/Vol] 13.4 g/dL 13.0-16.5 [facility] Blood lymphocytes/100 leukoc ytesOrdered By: Alfredo Phipps on 09-16-2023 Lymphocytes/100 WBC (Bld) 19.0 % 19-41 [facility] Blood monocytes/100 leukocyt esOrdered By: Alfredo Phipps on 09-16-2023 Monocytes/100 WBC (Bld) 8.3 % 0-10 [facility] Blood platelet mean volumeOr dered By: Alfredo Phipps on 09-16-2023 Platelet mean volume (Bld) [Entitic vol] 9.6 fL 6.2-12.0 [facility] Determination of erythrocyte mean corpuscular volume (MCV)Ordered By: Alfredo Phipps on 09-16-2023 MCV (RBC) [Entitic vol] 90.5 fL 80-94 [facility] Hematocrit Auto (Bld) [Volum e fraction]Ordered By: Alfredo Phipps on 09-16-2023 Hematocrit (Bld) [Volume fraction] 41.9 % 40-54 [facility] - Chemistry and C hemistry - challengeOrdered By: Alfredo Phipps on 09-16-2023 CO2 [Moles/Vol] 23.0 mmol/L 21.0-32.0 [facility] Urea nitrogen/Creatinine [Mass ratio] 11.6 mg/mg 10-20 [facility] - Hematology and Cell countsOrdered By: Alfredo Phipps on 09-16-2023 Erythrocyte distribution width (RBC) [Entitic vol] 46.1 fL 35.1-43.9 [facility] Erythrocyte distribution width (RBC) [Ratio] 13.9 % 11.6-14.6 [facility] Immature granulocytes/100 WBC (Bld) 0.300 % 0.0-0.9 [facility] Comment on above: IG% - Immature Granu locytes (promyelocytes, myelocytes and metamyelocytes) > 1% indicates that a LEFT SHIFT is Present. MCH (RBC) [Entitic mass] 28.9 pg 27.0-32.0 [facility] Nucleated RBC/100 WBC (Bld) [Ratio] 0 % 0-5 [facility] ([facility]) [Mass/Vol]Or dered By: Alfredo Phipps on 09-16-2023 MCHC (RBC) [Mass/Vol] 32.0 g/dL 32-36 [facility] No Panel InformationOrdered By: Alfredo Phipps on 09-16-2023 Estimated GFR (MDRD) Amer 45 mL/min >60 [facility] Comment on above: GFR Calc Estimated GFR (MDRD) Non-Af Amer 37 mL/min >60 [facility] Comment on above: Non- GFR Calc [place] Level 0.60 mmol/L 0.60-1.20 [facility] Platelets bldOrdered By: Jennifer Phipps on 09-16-2023 Platelets (Bld) [#/Vol] 212 10*3/uL 150-450 [facility] Serum or plasma albumin you urement (mass/volume)Ordered By: Alfredo Phipps on 09-16-2023 Albumin [Mass/Vol] 2.9 g/dL 3.2-5.0 [facility] Serum or plasma calcium you urement (mass/volume)Ordered By: Alfredo Phipps on 09-16-2023 Calcium [Mass/Vol] 9.0 mg/dL 8.5-10.1 [facility] Serum or plasma creatinine m easurement (mass/volume)Ordered By: Alfredo Phipps on 09-16-2023 Creatinine [Mass/Vol] 1.98 mg/dL 0.70-1.30 [facility] Comment on above: The validity of the calculated GFR & GFRAA in patients over 70 years has not been determined. Clinical correlation is essential. Serum or plasma urea nitroge n measurement (mass/volume)Ordered By: Alfredo Phipps on 09-16-2023 Urea nitrogen [Mass/Vol] 23 mg/dL 7-18 [facility] Urine creatinine measurement (mass/volume)Ordered By: Alfredo Phipps on 09-16-2023 Creatinine (U) [Mass/Vol] 44.20 mg/dL NO RANGE EST. [facility] Urine protein measurement (m ass/volume)Ordered By: Alfredo Phipps on 09-16-2023 Protein (U) [Mass/Vol] mg/dL 0.0-11.8 [facility] Urine protein/creatinine mas s ratioOrdered By: Alferdo Phipps on 09-16-2023 Protein/Creatinine (U) [Mass ratio] 131 mg/g CRE 0-200 [facility] Urine creatinine measurement (mass/volume)Ordered By: Adam Ferraro on 08-22-2023 Creatinine (U) [Mass/Vol] 105.00 mg/dL NO RANGE EST. [facility] Urine protein measurement (m ass/volume)Ordered By: Adam Ferraro on 08-22-2023 Protein (U) [Mass/Vol] 19.3 mg/dL 0.0-11.8 [facility] Urine protein/creatinine mas s ratioOrdered By: Adam Ferraro on 08-22-2023 Protein/Creatinine (U) [Mass ratio] 184 mg/g CRE 0-200 [facility] Absolute lymphocyte countOrd ered By: Adam Ferraro on 08-19-2023 Lymphocytes Auto (Unsp spec) [#/Vol] 2.02 10*3/uL 0.83-4.51 [facility] Basophil percentageOrdered B y: Adam Ferraro on 08-19-2023 Basophil percentage 4.0 mg/dL 2.5-4.9 [facility] Basophils/100 WBC (Bld) 0.7 % 0-1 [facility] Chloride [Moles/Vol] 108 mmol/L 98-107 [facility] Eosinophils/100 WBC (Bld) 4.4 % 0-5 [facility] Glucose [Mass/Vol] 161 mg/dL 74-106 [facility] Comment on above: Fasting Glucose resu lt greater than or equal to 126 mg/dL suggests DIABETES MELLITUS per A.D.A. criteria. Neutrophils (Bld) [#/Vol] 7.4 10*3/uL 2.0-7.7 [facility] Neutrophils/100 WBC (Bld) 66.8 % 47-70 [facility] Potassium [Moles/Vol] 3.9 mmol/L 3.5-5.1 [facility] Sodium [Moles/Vol] 140 mmol/L 136-145 [facility] WBC (Bld) [#/Vol] 11.1 10*3/uL 4.4-11.0 [facility] Blood erythrocytes count (nu mber/volume)Ordered By: Adam Ferraro on 08-19-2023 RBC (Bld) [#/Vol] 4.67 10*6/uL 4.6-6.2 [facility] Blood hemoglobin measurement (mass/volume)Ordered By: Adam Ferraro on 08-19-2023 Hemoglobin (Bld) [Mass/Vol] 13.5 g/dL 13.0-16.5 [facility] Blood lymphocytes/100 leukoc ytesOrdered By: Adam Ferraro on 08-19-2023 Lymphocytes/100 WBC (Bld) 18.3 % 19-41 [facility] Blood monocytes/100 leukocyt esOrdered By: Adam Ferraro on 08-19-2023 Monocytes/100 WBC (Bld) 9.1 % 0-10 [facility] Blood platelet mean volumeOr dered By: Adam Ferraro on 08-19-2023 Platelet mean volume (Bld) [Entitic vol] 9.4 fL 6.2-12.0 [facility] Determination of erythrocyte mean corpuscular volume (MCV)Ordered By: Adam Ferraro on 08-19-2023 MCV (RBC) [Entitic vol] 90.1 fL 80-94 [facility] Hematocrit Auto (Bld) [Volum e fraction]Ordered By: Adam Ferraro on 08-19-2023 Hematocrit (Bld) [Volume fraction] 42.1 % 40-54 [facility] - Chemistry and C hemistry - challengeOrdered By: Adam Ferraro on 08-19-2023 CO2 [Moles/Vol] 26.0 mmol/L 21.0-32.0 [facility] Urea nitrogen/Creatinine [Mass ratio] 10.9 mg/mg 10-20 [facility] - Hematology and Cell countsOrdered By: Adam Ferraro on 08-19-2023 Erythrocyte distribution width (RBC) [Entitic vol] 45.8 fL 35.1-43.9 [facility] Erythrocyte distribution width (RBC) [Ratio] 13.8 % 11.6-14.6 [facility] Immature granulocytes/100 WBC (Bld) 0.700 % 0.0-0.9 [facility] Comment on above: IG% - Immature Granu locytes (promyelocytes, myelocytes and metamyelocytes) > 1% indicates that a LEFT SHIFT is Present. MCH (RBC) [Entitic mass] 28.9 pg 27.0-32.0 [facility] Nucleated RBC/100 WBC (Bld) [Ratio] 0 % 0-5 [facility] MCHC Auto (RBC) [Mass/Vol]Or dered By: Adam Ferraro on 08-19-2023 MCHC (RBC) [Mass/Vol] 32.1 g/dL 32-36 [facility] No Panel InformationOrdered By: Adam Ferraro on 08-19-2023 Estimated GFR (MDRD) Amer 44 mL/min >60 [facility] Comment on above: GFR Calc Estimated GFR (MDRD) Non-Af Amer 36 mL/min >60 [facility] Comment on above: Non- GFR Calc [place] Level 0.50 mmol/L 0.60-1.20 [facility] Platelets bldOrdered By: Benoit Ferraro on 08-19-2023 Platelets (Bld) [#/Vol] 218 10*3/uL 150-450 [facility] Serum or plasma albumin you urement (mass/volume)Ordered By: Adam Ferraro on 08-19-2023 Albumin [Mass/Vol] 2.9 g/dL 3.2-5.0 [facility] Serum or plasma calcium you urement (mass/volume)Ordered By: Adam Ferraro on 08-19-2023 Calcium [Mass/Vol] 9.0 mg/dL 8.5-10.1 [facility] Serum or plasma creatinine m easurement (mass/volume)Ordered By: Adam Ferraro on 08-19-2023 Creatinine [Mass/Vol] 2.01 mg/dL 0.70-1.30 [facility] Comment on above: The validity of the calculated GFR & GFRAA in patients over 70 years has not been determined. Clinical correlation is essential. Serum or plasma urea nitroge n measurement (mass/volume)Ordered By: Adam Ferraro on 08-19-2023 Urea nitrogen [Mass/Vol] 22 mg/dL 7-18 [facility] Whole blood hemoglobin A1c/t otal hemoglobin ratio (mass fraction)Ordered By: Adam Ferraro on 08-19-2023 HbA1c (Bld) [Mass fraction] 7.2 % 3.8-5.6 [facility] Comment on above: Normal < 5.7 % Predi abetic 5.7 - 6.4 % Diabetic >or= 6.5 % Please note range changes. Basophil percentageOrdered B y: Adam Ferraro on 07-28-2023 Cholesterol [Mass/Vol] 124 mg/dL <200 [facility] Comment on above: <200 mg/dL Desirable 200-240 mg/dL Borderline >240 mg/dL High Risk Triglyceride [Mass/Vol] 234 mg/dL <199 [facility] Comment on above: The drugs N-Acetylcy steine and Metamizole may falsely depress this assay.Serum Triglycerides Reference Interval Normal <150 mg/dL Borderline high 150 - 199 mg/dL High 200 - 499 mg/dL Very High > or = 500 mg/dL Serum or plasma cholesterol in HDL measurement (mass/volume)Ordered By: Adam Ferraro on 07-28-2023 Cholesterol in HDL [Mass/Vol] 36 mg/dL >40 [facility] Comment on above: The drugs N-Acetylcy steine and Metamizole may falsely depress this assay. Reference Range HDL <40 mg/dL Low HDL Cholesterol HDL >or= 60 mg/dL High HDL Cholesterol Serum or plasma cholesterol in VLDL measurement (mass/volume)Ordered By: Adam Ferraro on 07-28-2023 Cholesterol in VLDL [Mass/Vol] 47 mg/dL 5-40 [facility] Serum or plasma low density lipoprotein (LDL) cholesterol measurement (mass/volume)Ordered By: Adam Ferraro on 07-28-2023 Cholesterol in LDL [Mass/Vol] 41 mg/dL 0-130 [facility] Serum or plasma uric acid me asurement (mass/volume)Ordered By: Adam Ferraro on 07-28-2023 Urate [Mass/Vol] 6.6 mg/dL 3.5-7.2 [facility] Comment on above: The drugs N-Acetylcy steine and Metamizole may falsely depress this assay. Urine creatinine measurement (mass/volume)Ordered By: Adam Ferraro on 07-24-2023 Creatinine (U) [Mass/Vol] 113.00 mg/dL NO RANGE EST. [facility] Urine protein measurement (m ass/volume)Ordered By: Adam Ferraro on 07-24-2023 Protein (U) [Mass/Vol] 15.1 mg/dL 0.0-11.8 [facility] Urine protein/creatinine mas s ratioOrdered By: Adam Ferraro on 07-24-2023 Protein/Creatinine (U) [Mass ratio] 134 mg/g CRE 0-200 [facility] Absolute lymphocyte countOrd ered By: Alfredo Phipps on 07-22-2023 Lymphocytes Auto (Unsp spec) [#/Vol] 1.60 10*3/uL 0.83-4.51 [facility] Basophil percentageOrdered B y: Alfredo Phipps on 07-22-2023 Basophil percentage 4.2 mg/dL 2.5-4.9 [facility] Basophils/100 WBC (Bld) 1.1 % 0-1 [facility] Chloride [Moles/Vol] 108 mmol/L 98-107 [facility] Eosinophils/100 WBC (Bld) 2.7 % 0-5 [facility] Glucose [Mass/Vol] 138 mg/dL 74-106 [facility] Comment on above: Fasting Glucose resu lt greater than or equal to 126 mg/dL suggests DIABETES MELLITUS per A.D.A. criteria. Neutrophils (Bld) [#/Vol] 6.9 10*3/uL 2.0-7.7 [facility] Neutrophils/100 WBC (Bld) 69.3 % 47-70 [facility] Potassium [Moles/Vol] 3.8 mmol/L 3.5-5.1 [facility] Sodium [Moles/Vol] 135 mmol/L 136-145 [facility] WBC (Bld) [#/Vol] 9.9 10*3/uL 4.4-11.0 [facility] Blood erythrocytes count (nu mber/volume)Ordered By: Alfredo Phipps on 07-22-2023 RBC (Bld) [#/Vol] 4.79 10*6/uL 4.6-6.2 [facility] Blood hemoglobin measurement (mass/volume)Ordered By: Alfredo Phipps on 07-22-2023 Hemoglobin (Bld) [Mass/Vol] 13.6 g/dL 13.0-16.5 [facility] Blood lymphocytes/100 leukoc ytesOrdered By: Alfredo Phipps on 07-22-2023 Lymphocytes/100 WBC (Bld) 16.1 % 19-41 [facility] Blood monocytes/100 leukocyt esOrdered By: Alfredo Phipps on 07-22-2023 Monocytes/100 WBC (Bld) 10.2 % 0-10 [facility] Blood platelet mean volumeOr dered By: Alfredo Phipps on 07-22-2023 Platelet mean volume (Bld) [Entitic vol] 10.8 fL 6.2-12.0 [facility] Determination of erythrocyte mean corpuscular volume (MCV)Ordered By: Alfredo Phipps on 07-22-2023 MCV (RBC) [Entitic vol] 98.1 fL 80-94 [facility] Hematocrit Auto (Bld) [Volum e fraction]Ordered By: Alfredo Phipps on 07-22-2023 Hematocrit (Bld) [Volume fraction] 47.0 % 40-54 [facility] - Chemistry and C hemistry - challengeOrdered By: Alfredo Phipps on 07-22-2023 CO2 [Moles/Vol] 19.0 mmol/L 21.0-32.0 [facility] Urea nitrogen/Creatinine [Mass ratio] 10.7 mg/mg 10-20 [facility] - Hematology and Cell countsOrdered By: Alfredo Phipps on 07-22-2023 Erythrocyte distribution width (RBC) [Entitic vol] 58.0 fL 35.1-43.9 [facility] Erythrocyte distribution width (RBC) [Ratio] 16.4 % 11.6-14.6 [facility] Immature granulocytes/100 WBC (Bld) 0.600 % 0.0-0.9 [facility] Comment on above: IG% - Immature Granu locytes (promyelocytes, myelocytes and metamyelocytes) > 1% indicates that a LEFT SHIFT is Present. MCH (RBC) [Entitic mass] 28.4 pg 27.0-32.0 [facility] Nucleated RBC/100 WBC (Bld) [Ratio] 0 % 0-5 [facility] MCHC Auto (RBC) [Mass/Vol]Or dered By: Alfredo Phipps on 07-22-2023 MCHC (RBC) [Mass/Vol] 28.9 g/dL 32-36 [facility] No Panel InformationOrdered By: Alfredo Phipps on 07-22-2023 Estimated GFR (MDRD) Amer 45 mL/min >60 [facility] Comment on above: GFR Calc Estimated GFR (MDRD) Non-Af Amer 37 mL/min >60 [facility] Comment on above: Non- GFR Calc [place] Level 0.60 mmol/L 0.60-1.20 [facility] Platelets bldOrdered By: Pet shonda Phipps on 07-22-2023 Platelets (Bld) [#/Vol] 209 10*3/uL 150-450 [facility] Serum or plasma albumin you urement (mass/volume)Ordered By: Alfredo Phipps on 07-22-2023 Albumin [Mass/Vol] 2.6 g/dL 3.2-5.0 [facility] Serum or plasma calcium you urement (mass/volume)Ordered By: Alfredo Phipps on 07-22-2023 Calcium [Mass/Vol] 9.1 mg/dL 8.5-10.1 [facility] Serum or plasma creatinine m easurement (mass/volume)Ordered By: Alfredo Phipps on 07-22-2023 Creatinine [Mass/Vol] 1.97 mg/dL 0.70-1.30 [facility] Comment on above: The validity of the calculated GFR & GFRAA in patients over 70 years has not been determined. Clinical correlation is essential. Serum or plasma urea nitroge n measurement (mass/volume)Ordered By: Alfredo Phipps on 07-22-2023 Urea nitrogen [Mass/Vol] 21 mg/dL 7-18 [facility] Absolute lymphocyte countOrd ered By: Alfredo Phipps on 06-24-2023 Lymphocytes Auto (Unsp spec) [#/Vol] 2.04 10*3/uL 0.83-4.51 [facility] Basophil percentageOrdered B y: Alfredo Phipps on 06-24-2023 Basophil percentage 4.4 mg/dL 2.5-4.9 [facility] Basophils/100 WBC (Bld) 1.2 % 0-1 [facility] Chloride [Moles/Vol] 107 mmol/L 98-107 [facility] Eosinophils/100 WBC (Bld) 5.2 % 0-5 [facility] Glucose [Mass/Vol] 144 mg/dL 74-106 [facility] Comment on above: Fasting Glucose resu lt greater than or equal to 126 mg/dL suggests DIABETES MELLITUS per A.D.A. criteria. Neutrophils (Bld) [#/Vol] 5.9 10*3/uL 2.0-7.7 [facility] Neutrophils/100 WBC (Bld) 62.3 % 47-70 [facility] Potassium [Moles/Vol] 3.7 mmol/L 3.5-5.1 [facility] Sodium [Moles/Vol] 138 mmol/L 136-145 [facility] WBC (Bld) [#/Vol] 9.4 10*3/uL 4.4-11.0 [facility] [facility] Blood erythrocytes count (nu mber/volume)Ordered By: Alfredo Phipps on 06-24-2023 RBC (Bld) [#/Vol] 4.95 10*6/uL 4.6-6.2 [facility] Blood hemoglobin measurement (mass/volume)Ordered By: Alfredo Phipps on 06-24-2023 Hemoglobin (Bld) [Mass/Vol] 14.2 g/dL 13.0-16.5 [facility] Blood lymphocytes/100 leukoc ytesOrdered By: Alfredo Phipps on 06-24-2023 Lymphocytes/100 WBC (Bld) 21.7 % 19-41 [facility] Blood monocytes/100 leukocyt esOrdered By: Alfredo Phipps on 06-24-2023 Monocytes/100 WBC (Bld) 9.1 % 0-10 [facility] Blood platelet mean volumeOr dered By: Alfredo Phipps on 06-24-2023 Platelet mean volume (Bld) [Entitic vol] 9.8 fL 6.2-12.0 [facility] Determination of erythrocyte mean corpuscular volume (MCV)Ordered By: Alfredo Phipps on 06-24-2023 MCV (RBC) [Entitic vol] 88.5 fL 80-94 [facility] Hematocrit Auto (Bld) [Volum e fraction]Ordered By: Alfredo Phipps on 06-24-2023 Hematocrit (Bld) [Volume fraction] 43.8 % 40-54 [facility] - Chemistry and C hemistry - challengeOrdered By: Alfredo Phipps on 06-24-2023 CO2 [Moles/Vol] 25.0 mmol/L 21.0-32.0 [facility] Urea nitrogen/Creatinine [Mass ratio] 11.5 mg/mg 10-20 [facility] - Hematology and Cell countsOrdered By: Alfredo Phipps on 06-24-2023 Erythrocyte distribution width (RBC) [Entitic vol] 42.3 fL 35.1-43.9 [facility] Erythrocyte distribution width (RBC) [Ratio] 13.1 % 11.6-14.6 [facility] Immature granulocytes/100 WBC (Bld) 0.500 % 0.0-0.9 [facility] Comment on above: IG% - Immature Granu locytes (promyelocytes, myelocytes and metamyelocytes) > 1% indicates that a LEFT SHIFT is Present. MCH (RBC) [Entitic mass] 28.7 pg 27.0-32.0 [facility] Nucleated RBC/100 WBC (Bld) [Ratio] 0 % 0-5 [facility] MCHC Auto (RBC) [Mass/Vol]Or dered By: Alfredo Phipps on 06-24-2023 MCHC (RBC) [Mass/Vol] 32.4 g/dL 32-36 [facility] No Panel InformationOrdered By: Alfredo Phipps on 06-24-2023 Estimated GFR (MDRD) Amer 49 mL/min >60 [facility] Comment on above: GFR Calc Estimated GFR (MDRD) Non-Af Amer 40 mL/min >60 [facility] Comment on above: Non- GFR Calc [place] Level 0.60 mmol/L 0.60-1.20 [facility] Platelets bldOrdered By: Jennifer Phipps on 06-24-2023 Platelets (Bld) [#/Vol] 213 10*3/uL 150-450 [facility] Serum or plasma albumin you urement (mass/volume)Ordered By: Alfredo Phipps on 06-24-2023 Albumin [Mass/Vol] 2.9 g/dL 3.2-5.0 [facility] Serum or plasma calcium you urement (mass/volume)Ordered By: Alfredo Phipps on 06-24-2023 Calcium [Mass/Vol] 9.1 mg/dL 8.5-10.1 [facility] Serum or plasma creatinine m easurement (mass/volume)Ordered By: Alfredo Phipps on 06-24-2023 Creatinine [Mass/Vol] 1.83 mg/dL 0.70-1.30 [facility] Comment on above: The validity of the calculated GFR & GFRAA in patients over 70 years has not been determined. Clinical correlation is essential. Serum or plasma urea nitroge n measurement (mass/volume)Ordered By: Alfredo Phipps on 06-24-2023 Urea nitrogen [Mass/Vol] 21 mg/dL 7-18 [facility] Serum or plasma uric acid me asurement (mass/volume)Ordered By: Alfredo Phipps on 06-24-2023 Urate [Mass/Vol] 6.5 mg/dL 3.5-7.2 [facility] Comment on above: The drugs N-Acetylcy steine and Metamizole may falsely depress this assay. Urine creatinine measurement (mass/volume)Ordered By: Alfredo Phipps on 06-24-2023 Creatinine (U) [Mass/Vol] 127.00 mg/dL NO RANGE EST. [facility] Urine protein measurement (m ass/volume)Ordered By: Alfredo Phipps on 06-24-2023 Protein (U) [Mass/Vol] 19.9 mg/dL 0.0-11.8 [facility] Urine protein/creatinine mas s ratioOrdered By: Alfredo Phipps on 06-24-2023 Protein/Creatinine (U) [Mass ratio] 157 mg/g CRE 0-200 [facility] Urine creatinine measurement (mass/volume)Ordered By: Adam Ferraro on 05-30-2023 Creatinine (U) [Mass/Vol] 73.90 mg/dL NO RANGE EST. [facility] Urine protein measurement (m ass/volume)Ordered By: Adam Ferrrao on 05-30-2023 Protein (U) [Mass/Vol] 18.0 mg/dL 0.0-11.8 [facility] Urine protein/creatinine mas s ratioOrdered By: Adam Ferraro on 07-17-2023 Protein/Creatinine (U) [Mass ratio] 244 mg/g CRE 0-200 [facility] Absolute lymphocyte countOrd ered By: Adam Ferraro on 05-27-2023 Lymphocytes Auto (Unsp spec) [#/Vol] 1.85 10*3/uL 0.83-4.51 [facility] Basophil percentageOrdered B y: Adam Ferraro on 05-27-2023 Basophil percentage 3.9 mg/dL 2.5-4.9 [facility] Basophils/100 WBC (Bld) 1.1 % 0-1 [facility] Chloride [Moles/Vol] 106 mmol/L 98-107 [facility] Eosinophils/100 WBC (Bld) 3.3 % 0-5 [facility] Glucose [Mass/Vol] 208 mg/dL 74-106 [facility] Comment on above: Glucose result great er than or equal to 200 mg/dLsuggests DIABETES MELLITUS per A.D.A. criteria. Neutrophils (Bld) [#/Vol] 5.6 10*3/uL 2.0-7.7 [facility] Neutrophils/100 WBC (Bld) 64.5 % 47-70 [facility] Potassium [Moles/Vol] 3.7 mmol/L 3.5-5.1 [facility] Sodium [Moles/Vol] 138 mmol/L 136-145 [facility] WBC (Bld) [#/Vol] 8.7 10*3/uL 4.4-11.0 [facility] Blood erythrocytes count (nu mber/volume)Ordered By: Adam Ferraro on 05-27-2023 RBC (Bld) [#/Vol] 4.98 10*6/uL 4.6-6.2 [facility] Blood hemoglobin measurement (mass/volume)Ordered By: Adam Ferraro on 05-27-2023 Hemoglobin (Bld) [Mass/Vol] 14.4 g/dL 13.0-16.5 [facility] Blood lymphocytes/100 leukoc ytesOrdered By: Adam Ferraro on 05-27-2023 Lymphocytes/100 WBC (Bld) 21.2 % 19-41 [facility] Blood monocytes/100 leukocyt esOrdered By: Adam Ferraro on 05-27-2023 Monocytes/100 WBC (Bld) 9.3 % 0-10 [facility] Blood platelet mean volumeOr dered By: Adam Ferraro on 05-27-2023 Platelet mean volume (Bld) [Entitic vol] 10.0 fL 6.2-12.0 [facility] Determination of erythrocyte mean corpuscular volume (MCV)Ordered By: Adam Ferraro on 05-27-2023 MCV (RBC) [Entitic vol] 89.6 fL 80-94 [facility] Hematocrit Auto (Bld) [Volum e fraction]Ordered By: Adam Ferraro on 05-27-2023 Hematocrit (Bld) [Volume fraction] 44.6 % 40-54 [facility] - Chemistry and C hemistry - challengeOrdered By: Adma Ferraro on 05-27-2023 CO2 [Moles/Vol] 27.0 mmol/L 21.0-32.0 [facility] Urea nitrogen/Creatinine [Mass ratio] 11.5 mg/mg 10-20 [facility] - Hematology and Cell countsOrdered By: Adam Ferraro on 05-27-2023 Erythrocyte distribution width (RBC) [Entitic vol] 42.2 fL 35.1-43.9 [facility] Erythrocyte distribution width (RBC) [Ratio] 13.0 % 11.6-14.6 [facility] Immature granulocytes/100 WBC (Bld) 0.600 % 0.0-0.9 [facility] Comment on above: IG% - Immature Granu locytes (promyelocytes, myelocytes and metamyelocytes) > 1% indicates that a LEFT SHIFT is Present. MCH (RBC) [Entitic mass] 28.9 pg 27.0-32.0 [facility] Nucleated RBC/100 WBC (Bld) [Ratio] 0 % 0-5 [facility] MCHC Auto (RBC) [Mass/Vol]Or dered By: Adam Ferraro on 05-27-2023 MCHC (RBC) [Mass/Vol] 32.3 g/dL 32-36 [facility] No Panel InformationOrdered By: Adam Ferraro on 05-27-2023 Estimated GFR (MDRD) Amer 52 mL/min >60 [facility] Comment on above: GFR Calc Estimated GFR (MDRD) Non-Af Amer 43 mL/min >60 [facility] Comment on above: Non- GFR Calc [place] Level 0.40 mmol/L 0.60-1.20 [facility] Platelets bldOrdered By: Benoit Ferraro on 05-27-2023 Platelets (Bld) [#/Vol] 211 10*3/uL 150-450 [facility] Serum or plasma albumin you urement (mass/volume)Ordered By: Adam Ferraro on 05-27-2023 Albumin [Mass/Vol] 2.9 g/dL 3.2-5.0 [facility] Serum or plasma calcium you urement (mass/volume)Ordered By: Adam Ferraro on 05-27-2023 Calcium [Mass/Vol] 9.2 mg/dL 8.5-10.1 [facility] Serum or plasma creatinine m easurement (mass/volume)Ordered By: Adam Ferraro on 05-27-2023 Creatinine [Mass/Vol] 1.74 mg/dL 0.70-1.30 [facility] Comment on above: The validity of the calculated GFR & GFRAA in patients over 70 years has not been determined. Clinical correlation is essential. Serum or plasma urea nitroge n measurement (mass/volume)Ordered By: Adam Ferraro on 05-27-2023 Urea nitrogen [Mass/Vol] 20 mg/dL 7-18 [facility] Serum or plasma uric acid me asurement (mass/volume)Ordered By: Adam Ferraro on 05-27-2023 Urate [Mass/Vol] 4.9 mg/dL 3.5-7.2 [facility] Comment on above: The drugs N-Acetylcy steine and Metamizole may falsely depress this assay. Whole blood hemoglobin A1c/t otal hemoglobin ratio (mass fraction)Ordered By: Adam Ferraro on 05-19-2023 HbA1c (Bld) [Mass fraction] 11.1 % 3.8-5.6 [facility] Comment on above: Normal < 5.7 % Predi abetic 5.7 - 6.4 % Diabetic >or= 6.5 % Please note range changes. Absolute lymphocyte countOrd ered By: Alfredo Phipps on 04-29-2023 Lymphocytes Auto (Unsp spec) [#/Vol] 1.98 10*3/uL 0.83-4.51 [facility] Basophil percentageOrdered B y: Alfredo Phipps on 04-29-2023 Basophil percentage 3.6 mg/dL 2.5-4.9 [facility] Basophils/100 WBC (Bld) 1.0 % 0-1 [facility] Chloride [Moles/Vol] 105 mmol/L 98-107 [facility] Eosinophils/100 WBC (Bld) 2.7 % 0-5 [facility] Glucose [Mass/Vol] 300 mg/dL 74-106 [facility] Comment on above: Glucose result great er than or equal to 200 mg/dLsuggests DIABETES MELLITUS per A.D.A. criteria. Neutrophils (Bld) [#/Vol] 5.7 10*3/uL 2.0-7.7 [facility] Neutrophils/100 WBC (Bld) 64.2 % 47-70 [facility] Potassium [Moles/Vol] 3.9 mmol/L 3.5-5.1 [facility] Sodium [Moles/Vol] 138 mmol/L 136-145 [facility] WBC (Bld) [#/Vol] 8.9 10*3/uL 4.4-11.0 [facility] Blood erythrocytes count (nu mber/volume)Ordered By: Alfredo Phipps on 04-29-2023 RBC (Bld) [#/Vol] 4.74 10*6/uL 4.6-6.2 [facility] Blood hemoglobin measurement (mass/volume)Ordered By: Alfredo Phipps on 04-29-2023 Hemoglobin (Bld) [Mass/Vol] 13.6 g/dL 13.0-16.5 [facility] Blood lymphocytes/100 leukoc ytesOrdered By: Aflredo Phipps on 04-29-2023 Lymphocytes/100 WBC (Bld) 22.2 % 19-41 [facility] Blood monocytes/100 leukocyt esOrdered By: Alfredo Phipps on 04-29-2023 Monocytes/100 WBC (Bld) 9.2 % 0-10 [facility] Blood platelet mean volumeOr dered By: Alfredo Phipps on 04-29-2023 Platelet mean volume (Bld) [Entitic vol] 9.7 fL 6.2-12.0 [facility] Determination of erythrocyte mean corpuscular volume (MCV)Ordered By: Alfredo Phipps on 04-29-2023 MCV (RBC) [Entitic vol] 87.8 fL 80-94 [facility] Hematocrit Auto (Bld) [Volum e fraction]Ordered By: Alfredo Phipps on 04-29-2023 Hematocrit (Bld) [Volume fraction] 41.6 % 40-54 [facility] - Chemistry and C hemistry - challengeOrdered By: Alfredo Phipps on 04-29-2023 CO2 [Moles/Vol] 24.0 mmol/L 21.0-32.0 [facility] Urea nitrogen/Creatinine [Mass ratio] 13.7 mg/mg 10-20 [facility] - Hematology and Cell countsOrdered By: Alfredo Phipps on 04-29-2023 Erythrocyte distribution width (RBC) [Entitic vol] 41.7 fL 35.1-43.9 [facility] Erythrocyte distribution width (RBC) [Ratio] 12.9 % 11.6-14.6 [facility] Immature granulocytes/100 WBC (Bld) 0.700 % 0.0-0.9 [facility] Comment on above: IG% - Immature Granu locytes (promyelocytes, myelocytes and metamyelocytes) > 1% indicates that a LEFT SHIFT is Present. MCH (RBC) [Entitic mass] 28.7 pg 27.0-32.0 [facility] Nucleated RBC/100 WBC (Bld) [Ratio] 0 % 0-5 [facility] MCHC Auto (RBC) [Mass/Vol]Or dered By: Alfredo Phipps on 04-29-2023 MCHC (RBC) [Mass/Vol] 32.7 g/dL 32-36 [facility] No Panel InformationOrdered By: Alfredo Phipps on 04-29-2023 Estimated GFR (MDRD) Amer 51 mL/min >60 [facility] Comment on above: GFR Calc Estimated GFR (MDRD) Non-Af Amer 43 mL/min >60 [facility] Comment on above: Non- GFR Calc [place] Level 0.40 mmol/L 0.60-1.20 [facility] Platelets bldOrdered By: Jennifer Phipps on 04-29-2023 Platelets (Bld) [#/Vol] 204 10*3/uL 150-450 [facility] Serum or plasma albumin you urement (mass/volume)Ordered By: Alfredo Phipps on 04-29-2023 Albumin [Mass/Vol] 2.7 g/dL 3.2-5.0 [facility] Serum or plasma calcium you urement (mass/volume)Ordered By: Alfredo Phipps on 04-29-2023 Calcium [Mass/Vol] 8.9 mg/dL 8.5-10.1 [facility] Serum or plasma creatinine m easurement (mass/volume)Ordered By: Alfredo Phipps on 04-29-2023 Creatinine [Mass/Vol] 1.75 mg/dL 0.70-1.30 [facility] Comment on above: The validity of the calculated GFR & GFRAA in patients over 70 years has not been determined. Clinical correlation is essential. Serum or plasma urea nitroge n measurement (mass/volume)Ordered By: Alfredo Phipps on 04-29-2023 Urea nitrogen [Mass/Vol] 24 mg/dL 7-18 [facility] Serum or plasma uric acid me asurement (mass/volume)Ordered By: Alfredo Phipps on 04-27-2023 Urate [Mass/Vol] 4.8 mg/dL 3.5-7.2 [facility] Comment on above: The drugs N-Acetylcy steine and Metamizole may falsely depress this assay. Urine creatinine measurement (mass/volume)Ordered By: Adam Ferraro on 04-04-2023 Creatinine (U) [Mass/Vol] 96.50 mg/dL NO RANGE EST. [facility] Urine protein measurement (m ass/volume)Ordered By: Adam Ferraro on 04-04-2023 Protein (U) [Mass/Vol] 26.4 mg/dL 0.0-11.8 [facility] Urine protein/creatinine mas s ratioOrdered By: Adam Ferraro on 04-04-2023 Protein/Creatinine (U) [Mass ratio] 274 mg/g CRE 0-200 [facility] Absolute lymphocyte countOrd ered By: Adam Ferraro on 04-01-2023 Lymphocytes Auto (Unsp spec) [#/Vol] 1.91 10*3/uL 0.83-4.51 [facility] Basophil percentageOrdered B y: Adam Ferraro on 04-01-2023 Basophil percentage 3.3 mg/dL 2.5-4.9 [facility] Basophils/100 WBC (Bld) 1.1 % 0-1 [facility] Chloride [Moles/Vol] 105 mmol/L 98-107 [facility] Eosinophils/100 WBC (Bld) 2.7 % 0-5 [facility] Glucose [Mass/Vol] 317 mg/dL 74-106 [facility] Comment on above: Glucose result great er than or equal to 200 mg/dLsuggests DIABETES MELLITUS per A.D.A. criteria. Neutrophils (Bld) [#/Vol] 5.4 10*3/uL 2.0-7.7 [facility] Neutrophils/100 WBC (Bld) 64.7 % 47-70 [facility] Potassium [Moles/Vol] 3.8 mmol/L 3.5-5.1 [facility] Sodium [Moles/Vol] 137 mmol/L 136-145 [facility] WBC (Bld) [#/Vol] 8.4 10*3/uL 4.4-11.0 [facility] Blood erythrocytes count (nu mber/volume)Ordered By: Adam Ferraro on 04-01-2023 RBC (Bld) [#/Vol] 5.17 10*6/uL 4.6-6.2 [facility] Blood hemoglobin measurement (mass/volume)Ordered By: Adam Ferraro on 04-01-2023 Hemoglobin (Bld) [Mass/Vol] 14.7 g/dL 13.0-16.5 [facility] Blood lymphocytes/100 leukoc ytesOrdered By: Adam Ferraro on 04-01-2023 Lymphocytes/100 WBC (Bld) 22.7 % 19-41 [facility] Blood monocytes/100 leukocyt esOrdered By: Adam Ferraro on 04-01-2023 Monocytes/100 WBC (Bld) 8.2 % 0-10 [facility] Blood platelet mean volumeOr dered By: Adam Ferraro on 04-01-2023 Platelet mean volume (Bld) [Entitic vol] 9.8 fL 6.2-12.0 [facility] Determination of erythrocyte mean corpuscular volume (MCV)Ordered By: Adam Ferraro on 04-01-2023 MCV (RBC) [Entitic vol] 88.6 fL 80-94 [facility] Hematocrit Auto (Bld) [Volum e fraction]Ordered By: Adam Ferraro on 04-01-2023 Hematocrit (Bld) [Volume fraction] 45.8 % 40-54 [facility] - Chemistry and C hemistry - challengeOrdered By: Adam Ferraro on 04-01-2023 CO2 [Moles/Vol] 25.0 mmol/L 21.0-32.0 [facility] Urea nitrogen/Creatinine [Mass ratio] 13.7 mg/mg 10-20 [facility] - Hematology and Cell countsOrdered By: Adam Ferraro on 04-01-2023 Erythrocyte distribution width (RBC) [Entitic vol] 42.5 fL 35.1-43.9 [facility] Erythrocyte distribution width (RBC) [Ratio] 13.1 % 11.6-14.6 [facility] Immature granulocytes/100 WBC (Bld) 0.600 % 0.0-0.9 [facility] Comment on above: IG% - Immature Granu locytes (promyelocytes, myelocytes and metamyelocytes) > 1% indicates that a LEFT SHIFT is Present. MCH (RBC) [Entitic mass] 28.4 pg 27.0-32.0 [facility] Nucleated RBC/100 WBC (Bld) [Ratio] 0 % 0-5 [facility] MCHC Auto (RBC) [Mass/Vol]Or dered By: Adam Ferraro on 04-01-2023 MCHC (RBC) [Mass/Vol] 32.1 g/dL 32-36 [facility] No Panel InformationOrdered By: Adam Ferraro on 04-01-2023 Estimated GFR (MDRD) Amer 49 mL/min >60 [facility] Comment on above: GFR Calc Estimated GFR (MDRD) Non-Af Amer 41 mL/min >60 [facility] Comment on above: Non- GFR Calc [place] Level < 0.20 mmol/L 0.60-1.20 [facility] Platelets bldOrdered By: Benoit Ferraro on 04-01-2023 Platelets (Bld) [#/Vol] 209 10*3/uL 150-450 [facility] Serum or plasma albumin you urement (mass/volume)Ordered By: Adam Ferraro on 04-01-2023 Albumin [Mass/Vol] 3.0 g/dL 3.2-5.0 [facility] Serum or plasma calcium you urement (mass/volume)Ordered By: Adam Ferraro on 04-01-2023 Calcium [Mass/Vol] 8.9 mg/dL 8.5-10.1 [facility] Serum or plasma creatinine m easurement (mass/volume)Ordered By: Adam Ferraro on 04-01-2023 Creatinine [Mass/Vol] 1.82 mg/dL 0.70-1.30 [facility] Comment on above: The validity of the calculated GFR & GFRAA in patients over 70 years has not been determined. Clinical correlation is essential. Serum or plasma urea nitroge n measurement (mass/volume)Ordered By: Adam Ferraro on 04-01-2023 Urea nitrogen [Mass/Vol] 25 mg/dL 7-18 [facility] Absolute lymphocyte countOrd ered By: Alfredo Phipps on 03-04-2023 Lymphocytes Auto (Unsp spec) [#/Vol] 2.18 10*3/uL 0.83-4.51 [facility] Basophil percentageOrdered B y: Alfredo Phipps on 03-04-2023 Basophil percentage 3.9 mg/dL 2.5-4.9 [facility] Basophils/100 WBC (Bld) 0.9 % 0-1 [facility] Chloride [Moles/Vol] 109 mmol/L 98-107 [facility] Eosinophils/100 WBC (Bld) 3.5 % 0-5 [facility] Glucose [Mass/Vol] 179 mg/dL 74-106 [facility] Comment on above: Fasting Glucose resu lt greater than or equal to 126 mg/dL suggests DIABETES MELLITUS per A.D.A. criteria. Neutrophils (Bld) [#/Vol] 6.1 10*3/uL 2.0-7.7 [facility] Neutrophils/100 WBC (Bld) 63.2 % 47-70 [facility] Potassium [Moles/Vol] 3.9 mmol/L 3.5-5.1 [facility] Sodium [Moles/Vol] 138 mmol/L 136-145 [facility] WBC (Bld) [#/Vol] 9.6 10*3/uL 4.4-11.0 [facility] Blood erythrocytes count (nu mber/volume)Ordered By: Alfredo Phipps on 03-04-2023 RBC (Bld) [#/Vol] 4.74 10*6/uL 4.6-6.2 [facility] Blood hemoglobin measurement (mass/volume)Ordered By: Alfredo Phipps on 03-04-2023 Hemoglobin (Bld) [Mass/Vol] 13.6 g/dL 13.0-16.5 [facility] Blood lymphocytes/100 leukoc ytesOrdered By: Alfredo Phipps on 03-04-2023 Lymphocytes/100 WBC (Bld) 22.6 % 19-41 [facility] Blood monocytes/100 leukocyt esOrdered By: Alfredo Phipps on 03-04-2023 Monocytes/100 WBC (Bld) 9.4 % 0-10 [facility] Blood platelet mean volumeOr dered By: Alfredo Phipps on 03-04-2023 Platelet mean volume (Bld) [Entitic vol] 9.7 fL 6.2-12.0 [facility] Determination of erythrocyte mean corpuscular volume (MCV)Ordered By: Alfredo Phipps on 03-04-2023 MCV (RBC) [Entitic vol] 90.3 fL 80-94 [facility] Hematocrit Auto (Bld) [Volum e fraction]Ordered By: Alfredo Phipps on 03-04-2023 Hematocrit (Bld) [Volume fraction] 42.8 % 40-54 [facility] - Chemistry and C hemistry - challengeOrdered By: Alfredo Phipps on 03-04-2023 CO2 [Moles/Vol] 26.0 mmol/L 21.0-32.0 [facility] Urea nitrogen/Creatinine [Mass ratio] 13.9 mg/mg 10-20 [facility] - Hematology and Cell countsOrdered By: Alfredo Phipps on 03-04-2023 Erythrocyte distribution width (RBC) [Entitic vol] 42.8 fL 35.1-43.9 [facility] Erythrocyte distribution width (RBC) [Ratio] 12.9 % 11.6-14.6 [facility] Immature granulocytes/100 WBC (Bld) 0.400 % 0.0-0.9 [facility] Comment on above: IG% - Immature Granu locytes (promyelocytes, myelocytes and metamyelocytes) > 1% indicates that a LEFT SHIFT is Present. MCH (RBC) [Entitic mass] 28.7 pg 27.0-32.0 [facility] Nucleated RBC/100 WBC (Bld) [Ratio] 0 % 0-5 [facility] MCHC Auto (RBC) [Mass/Vol]Or dered By: Alfredo Phipps on 03-04-2023 MCHC (RBC) [Mass/Vol] 31.8 g/dL 32-36 [facility] No Panel InformationOrdered By: Alfredo Phipps on 03-04-2023 Estimated GFR (MDRD) Amer 55 mL/min >60 [facility] Comment on above: GFR Calc Estimated GFR (MDRD) Non-Af Amer 46 mL/min >60 [facility] Comment on above: Non- GFR Calc [place] Level 0.40 mmol/L 0.60-1.20 [facility] Platelets bldOrdered By: Jennifer Phipps on 03-04-2023 Platelets (Bld) [#/Vol] 207 10*3/uL 150-450 [facility] Serum or plasma albumin you urement (mass/volume)Ordered By: Alfredo Phipps on 03-04-2023 Albumin [Mass/Vol] 2.8 g/dL 3.2-5.0 [facility] Serum or plasma calcium you urement (mass/volume)Ordered By: Alfredo Phipps on 03-04-2023 Calcium [Mass/Vol] 9.2 mg/dL 8.5-10.1 [facility] Serum or plasma creatinine m easurement (mass/volume)Ordered By: Alfredo Phipps on 03-04-2023 Creatinine [Mass/Vol] 1.65 mg/dL 0.70-1.30 [facility] Comment on above: The validity of the calculated GFR & GFRAA in patients over 70 years has not been determined. Clinical correlation is essential. Serum or plasma urea nitroge n measurement (mass/volume)Ordered By: Alfredo Phipps on 03-04-2023 Urea nitrogen [Mass/Vol] 23 mg/dL 7-18 [facility] Serum or plasma uric acid me asurement (mass/volume)Ordered By: Alfredo Phipps on 02-25-2023 Urate [Mass/Vol] 5.6 mg/dL 3.5-7.2 [facility] Comment on above: The drugs N-Acetylcy steine and Metamizole may falsely depress this assay. Absolute lymphocyte countOrd ered By: Alfredo Phipps on 02-04-2023 Lymphocytes Auto (Unsp spec) [#/Vol] 2.03 10*3/uL 0.83-4.51 [facility] Basophil percentageOrdered B y: Alfredo Phipps on 02-04-2023 Basophil percentage 4.3 mg/dL 2.5-4.9 [facility] Basophils/100 WBC (Bld) 1.2 % 0-1 [facility] Chloride [Moles/Vol] 108 mmol/L 98-107 [facility] Eosinophils/100 WBC (Bld) 3.6 % 0-5 [facility] Glucose [Mass/Vol] 193 mg/dL 74-106 [facility] Comment on above: Fasting Glucose resu lt greater than or equal to 126 mg/dL suggests DIABETES MELLITUS per A.D.A. criteria. Neutrophils (Bld) [#/Vol] 6.1 10*3/uL 2.0-7.7 [facility] Neutrophils/100 WBC (Bld) 63.9 % 47-70 [facility] Potassium [Moles/Vol] 4.0 mmol/L 3.5-5.1 [facility] Sodium [Moles/Vol] 139 mmol/L 136-145 [facility] WBC (Bld) [#/Vol] 9.5 10*3/uL 4.4-11.0 [facility] Blood erythrocytes count (nu mber/volume)Ordered By: Alfredo Phipps on 02-04-2023 RBC (Bld) [#/Vol] 4.81 10*6/uL 4.6-6.2 [facility] Blood hemoglobin measurement (mass/volume)Ordered By: Alfredo Phipps on 02-04-2023 Hemoglobin (Bld) [Mass/Vol] 13.9 g/dL 13.0-16.5 [facility] Blood lymphocytes/100 leukoc ytesOrdered By: Alfredo Phipps on 02-04-2023 Lymphocytes/100 WBC (Bld) 21.4 % 19-41 [facility] Blood monocytes/100 leukocyt esOrdered By: Alfredo Phipps on 02-04-2023 Monocytes/100 WBC (Bld) 9.2 % 0-10 [facility] [facility] Blood platelet mean volumeOr dered By: Alfredo Phipps on 02-04-2023 Platelet mean volume (Bld) [Entitic vol] 9.4 fL 6.2-12.0 [facility] Determination of erythrocyte mean corpuscular volume (MCV)Ordered By: Alfredo Phipps on 02-04-2023 MCV (RBC) [Entitic vol] 94.2 fL 80-94 [facility] Hematocrit Auto (Bld) [Volum e fraction]Ordered By: Alfredo Phipps on 02-04-2023 Hematocrit (Bld) [Volume fraction] 45.3 % 40-54 [facility] - Chemistry and C hemistry - challengeOrdered By: Alfredo Phipps on 02-04-2023 CO2 [Moles/Vol] 24.0 mmol/L 21.0-32.0 [facility] Urea nitrogen/Creatinine [Mass ratio] 14.6 mg/mg 10-20 [facility] - Hematology and Cell countsOrdered By: Alfredo Phipps on 02-04-2023 Erythrocyte distribution width (RBC) [Entitic vol] 45.1 fL 35.1-43.9 [facility] Erythrocyte distribution width (RBC) [Ratio] 13.1 % 11.6-14.6 [facility] Immature granulocytes/100 WBC (Bld) 0.700 % 0.0-0.9 [facility] Comment on above: IG% - Immature Granu locytes (promyelocytes, myelocytes and metamyelocytes) > 1% indicates that a LEFT SHIFT is Present. MCH (RBC) [Entitic mass] 28.9 pg 27.0-32.0 [facility] Nucleated RBC/100 WBC (Bld) [Ratio] 0 % 0-5 [facility] Auto (RBC) [Mass/Vol]Or dered By: Alfredo Phipps on 02-04-2023 MCHC (RBC) [Mass/Vol] 30.7 g/dL 32-36 [facility] No Panel InformationOrdered By: Alfredo Phipps on 02-04-2023 Estimated GFR (MDRD) Amer 53 mL/min >60 [facility] Comment on above: GFR Calc Estimated GFR (MDRD) Non-Af Amer 44 mL/min >60 [facility] Comment on above: Non- GFR Calc [place] Level 0.50 mmol/L 0.60-1.20 [facility] Platelets bldOrdered By: Jennifer Phipps on 02-04-2023 Platelets (Bld) [#/Vol] 182 10*3/uL 150-450 [facility] Serum or plasma albumin you urement (mass/volume)Ordered By: Alfredo Phipps on 02-04-2023 Albumin [Mass/Vol] 2.9 g/dL 3.2-5.0 [facility] Serum or plasma calcium you urement (mass/volume)Ordered By: Alfredo Phipps on 02-04-2023 Calcium [Mass/Vol] 8.9 mg/dL 8.5-10.1 [facility] Serum or plasma creatinine m easurement (mass/volume)Ordered By: Alfredo Phipps on 02-04-2023 Creatinine [Mass/Vol] 1.71 mg/dL 0.70-1.30 [facility] Comment on above: The validity of the calculated GFR & GFRAA in patients over 70 years has not been determined. Clinical correlation is essential. Serum or plasma urea nitroge n measurement (mass/volume)Ordered By: Alfredo Phipps on 02-04-2023 Urea nitrogen [Mass/Vol] 25 mg/dL 7-18 [facility] Serum or plasma uric acid me asurement (mass/volume)Ordered By: Adam Ferraro on 01-25-2023 Urate [Mass/Vol] 5.8 mg/dL 3.5-7.2 [facility] Comment on above: The drugs N-Acetylcy steine and Metamizole may falsely depress this assay. Basophil percentageOrdered B y: Alfredo Phipps on 01-19-2023 Cholesterol [Mass/Vol] 160 mg/dL <200 [facility] Comment on above: <200 mg/dL Desirable 200-240 mg/dL Borderline >240 mg/dL High Risk Triglyceride [Mass/Vol] 322 mg/dL <199 [facility] Comment on above: The drugs N-Acetylcy steine and Metamizole may falsely depress this assay.Serum Triglycerides Reference Interval Normal <150 mg/dL Borderline high 150 - 199 mg/dL High 200 - 499 mg/dL Very High > or = 500 mg/dL Serum or plasma cholesterol in HDL measurement (mass/volume)Ordered By: Alfredo Phipps on 01-19-2023 Cholesterol in HDL [Mass/Vol] 38 mg/dL >40 [facility] Comment on above: The drugs N-Acetylcy steine and Metamizole may falsely depress this assay. Reference Range HDL <40 mg/dL Low HDL Cholesterol HDL >or= 60 mg/dL High HDL Cholesterol Serum or plasma cholesterol in VLDL measurement (mass/volume)Ordered By: Alfredo Phipps on 01-19-2023 Cholesterol in VLDL [Mass/Vol] 64 mg/dL 5-40 [facility] Serum or plasma low density lipoprotein (LDL) cholesterol measurement (mass/volume)Ordered By: Alfredo Phipps on 01-19-2023 Cholesterol in LDL [Mass/Vol] 58 mg/dL 0-130 [facility] Absolute lymphocyte countOrd ered By: Alfredo Phipps on 01-07-2023 Lymphocytes Auto (Unsp spec) [#/Vol] 2.02 10*3/uL 0.83-4.51 [facility] Basophil percentageOrdered B y: Alfredo Phipps on 01-07-2023 Basophil percentage 3.6 mg/dL 2.5-4.[address] [facility] Bas[place]/100 WBC (Bld) 1.0 % 0-1 [facility] Chloride [Moles/Vol] 109 mmol/L 98-107 [facility] Eosinophils/100 WBC (Bld) 2.8 % 0-5 [facility] Glucose [Mass/Vol] 236 mg/dL 74-106 [facility] Comment on above: Glucose result great er than or equal to 200 mg/dLsuggests DIABETES MELLITUS per A.D.A. criteria. Neutrophils (Bld) [#/Vol] 5.8 10*3/uL 2.0-7.7 [facility] Neutrophils/100 WBC (Bld) 62.2 % 47-70 [facility] Potassium [Moles/Vol] 4.1 mmol/L 3.5-5.1 [facility] Sodium [Moles/Vol] 141 mmol/L 136-145 [facility] WBC (Bld) [#/Vol] 9.3 10*3/uL 4.4-11.0 [facility] Blood erythrocytes count (nu mber/volume)Ordered By: Alfredo Phipps on 01-07-2023 RBC (Bld) [#/Vol] 4.67 10*6/uL 4.6-6.2 [facility] Blood hemoglobin measurement (mass/volume)Ordered By: Alfredo Phipps on 01-07-2023 Hemoglobin (Bld) [Mass/Vol] 13.5 g/dL 13.0-16.5 [facility] Blood lymphocytes/100 leukoc ytesOrdered By: Alfredo Phipps on 01-07-2023 Lymphocytes/100 WBC (Bld) 21.8 % 19-41 [facility] Blood monocytes/100 leukocyt esOrdered By: Alfredo Phipps on 01-07-2023 Monocytes/100 WBC (Bld) 11.6 % 0-10 [facility] Blood platelet mean volumeOr dered By: Alfredo Phipps on 01-07-2023 Platelet mean volume (Bld) [Entitic vol] 9.8 fL 6.2-12.0 [facility] Determination of erythrocyte mean corpuscular volume (MCV)Ordered By: Alfredo Phipps on 01-07-2023 MCV (RBC) [Entitic vol] 89.7 fL 80-94 [facility] Hematocrit Auto (Bld) [Volum e fraction]Ordered By: Alfredo Phipps on 01-07-2023 Hematocrit (Bld) [Volume fraction] 41.9 % 40-54 [facility] - Chemistry and C hemistry - challengeOrdered By: Alfredo Phipps on 01-07-2023 CO2 [Moles/Vol] 26.0 mmol/L 21.0-32.0 [facility] Urea nitrogen/Creatinine [Mass ratio] 13.4 mg/mg 10-20 [facility] - Hematology and Cell countsOrdered By: Alfredo Phipps on 01-07-2023 Erythrocyte distribution width (RBC) [Entitic vol] 42.5 fL 35.1-43.9 [facility] Erythrocyte distribution width (RBC) [Ratio] 13.1 % 11.6-14.6 [facility] Immature granulocytes/100 WBC (Bld) 0.600 % 0.0-0.9 [facility] Comment on above: IG% - Immature Granu locytes (promyelocytes, myelocytes and metamyelocytes) > 1% indicates that a LEFT SHIFT is Present. MCH (RBC) [Entitic mass] 28.9 pg 27.0-32.0 [facility] Nucleated RBC/100 WBC (Bld) [Ratio] 0 % 0-5 [facility] MCHC Auto (RBC) [Mass/Vol]Or dered By: Alfredo Phipps on 01-07-2023 MCHC (RBC) [Mass/Vol] 32.2 g/dL 32-36 [facility] No Panel InformationOrdered By: Alfredo Phipps on 01-07-2023 Estimated GFR (MDRD) Amer 48 mL/min >60 [facility] Comment on above: GFR Calc Estimated GFR (MDRD) Non-Af Amer 40 mL/min >60 [facility] Comment on above: Non- GFR Calc [place] Level 0.30 mmol/L 0.60-1.20 [facility] Platelets bldOrdered By: Jennifer Phipps on 01-07-2023 Platelets (Bld) [#/Vol] 203 10*3/uL 150-450 [facility] Serum or plasma albumin you urement (mass/volume)Ordered By: Alfredo Phipps on 01-07-2023 Albumin [Mass/Vol] 2.9 g/dL 3.2-5.0 [facility] Serum or plasma calcium you urement (mass/volume)Ordered By: Alfredo Phipps on 01-07-2023 Calcium [Mass/Vol] 9.0 mg/dL 8.5-10.1 [facility] Serum or plasma creatinine m easurement (mass/volume)Ordered By: Alfredo Phipps on 01-07-2023 Creatinine [Mass/Vol] 1.86 mg/dL 0.70-1.30 [facility] Comment on above: The validity of the calculated GFR & GFRAA in patients over 70 years has not been determined. Clinical correlation is essential. Serum or plasma urea nitroge n measurement (mass/volume)Ordered By: Alfredo Phipps on 01-07-2023 Urea nitrogen [Mass/Vol] 25 mg/dL 7-18 [facility] Serum or plasma uric acid me asurement (mass/volume)Ordered By: Adam Ferraro on 12-28-2022 Urate [Mass/Vol] 5.9 mg/dL 3.5-7.2 [facility] Comment on above: The drugs N-Acetylcy steine and Metamizole may falsely depress this assay. Urine creatinine measurement (mass/volume)Ordered By: Adam Ferraro on 12-15-2022 Creatinine (U) [Mass/Vol] 141.00 mg/dL NO RANGE EST. [facility] Urine protein measurement (m ass/volume)Ordered By: Adam Ferraro on 12-15-2022 Protein (U) [Mass/Vol] 29.9 mg/dL 0.0-11.8 [facility] Urine protein/creatinine mas s ratioOrdered By: Adam Ferraro on 12-15-2022 Protein/Creatinine (U) [Mass ratio] 212 mg/g CRE 0-200 [facility] Absolute lymphocyte countOrd ered By: Adam Ferraro on 12-10-2022 Lymphocytes Auto (Unsp spec) [#/Vol] 1.96 10*3/uL 0.83-4.51 [facility] Basophil percentageOrdered B y: Adam Ferraro on 12-10-2022 Basophil percentage 4.0 mg/dL 2.5-4.9 [facility] Basophils/100 WBC (Bld) 1.2 % 0-1 [facility] Chloride [Moles/Vol] 106 mmol/L 98-107 [facility] Eosinophils/100 WBC (Bld) 3.6 % 0-5 [facility] Glucose [Mass/Vol] 155 mg/dL 74-106 [facility] Comment on above: Fasting Glucose resu lt greater than or equal to 126 mg/dL suggests DIABETES MELLITUS per A.D.A. criteria. Neutrophils (Bld) [#/Vol] 4.9 10*3/uL 2.0-7.7 [facility] Neutrophils/100 WBC (Bld) 60.1 % 47-70 [facility] Potassium [Moles/Vol] 4.1 mmol/L 3.5-5.1 [facility] Sodium [Moles/Vol] 140 mmol/L 136-145 [facility] WBC (Bld) [#/Vol] 8.1 10*3/uL 4.4-11.0 [facility] Blood erythrocytes count (nu mber/volume)Ordered By: Adam Ferraro on 12-10-2022 RBC (Bld) [#/Vol] 4.96 10*6/uL 4.6-6.2 [facility] Blood hemoglobin measurement (mass/volume)Ordered By: Adam Ferraro on 12-10-2022 Hemoglobin (Bld) [Mass/Vol] 14.4 g/dL 13.0-16.5 [facility] Blood lymphocytes/100 leukoc ytesOrdered By: Adam Ferraro on 12-10-2022 Lymphocytes/100 WBC (Bld) 24.1 % 19-41 [facility] Blood monocytes/100 leukocyt esOrdered By: Adam Ferraro on 12-10-2022 Monocytes/100 WBC (Bld) 10.6 % 0-10 [facility] Blood platelet mean volumeOr dered By: Adam Ferraro on 12-10-2022 Platelet mean volume (Bld) [Entitic vol] 9.8 fL 6.2-12.0 [facility] Determination of erythrocyte mean corpuscular volume (MCV)Ordered By: Adam Ferraro on 12-10-2022 MCV (RBC) [Entitic vol] 89.5 fL 80-94 [facility] Hematocrit Auto (Bld) [Volum e fraction]Ordered By: Adam Ferraro on 12-10-2022 Hematocrit (Bld) [Volume fraction] 44.4 % 40-54 [facility] - Chemistry and C hemistry - challengeOrdered By: Adam Ferraro on 12-10-2022 CO2 [Moles/Vol] 26.0 mmol/L 21.0-32.0 [facility] Urea nitrogen/Creatinine [Mass ratio] 10.1 mg/mg 10-20 [facility] - Hematology and Cell countsOrdered By: Adam Ferraro on 12-10-2022 Erythrocyte distribution width (RBC) [Entitic vol] 42.6 fL 35.1-43.9 [facility] Erythrocyte distribution width (RBC) [Ratio] 13.0 % 11.6-14.6 [facility] Immature granulocytes/100 WBC (Bld) 0.400 % 0.0-0.9 [facility] Comment on above: IG% - Immature Granu locytes (promyelocytes, myelocytes and metamyelocytes) > 1% indicates that a LEFT SHIFT is Present. MCH (RBC) [Entitic mass] 29.0 pg 27.0-32.0 [facility] Nucleated RBC/100 WBC (Bld) [Ratio] 0 % 0-5 [facility] MCHC Auto (RBC) [Mass/Vol]Or dered By: Aadm Ferraro on 12-10-2022 MCHC (RBC) [Mass/Vol] 32.4 g/dL 32-36 [facility] No Panel InformationOrdered By: Adam Ferraro on 12-10-2022 Estimated GFR (MDRD) Amer 50 mL/min >60 [facility] Comment on above: GFR Calc Estimated GFR (MDRD) Non-Af Amer 41 mL/min >60 [facility] Comment on above: Non- GFR Calc [place] Level 0.50 mmol/L 0.60-1.20 [facility] Platelets bldOrdered By: Benoit Ferraro on 12-10-2022 Platelets (Bld) [#/Vol] 213 10*3/uL 150-450 [facility] Serum or plasma albumin you urement (mass/volume)Ordered By: Adam Ferraro on 12-10-2022 Albumin [Mass/Vol] 2.8 g/dL 3.2-5.0 [facility] Serum or plasma calcium you urement (mass/volume)Ordered By: Adam Ferraro on 12-10-2022 Calcium [Mass/Vol] 8.8 mg/dL 8.5-10.1 [facility] Serum or plasma creatinine m easurement (mass/volume)Ordered By: Adam Ferraro on 12-10-2022 Creatinine [Mass/Vol] 1.79 mg/dL 0.70-1.30 [facility] Comment on above: The validity of the calculated GFR & GFRAA in patients over 70 years has not been determined. Clinical correlation is essential. Serum or plasma urea nitroge n measurement (mass/volume)Ordered By: Adam Ferraro on 12-10-2022 Urea nitrogen [Mass/Vol] 18 mg/dL 7-18 [facility] Urine creatinine measurement (mass/volume)Ordered By: Adam Ferraro on 11-17-2022 Creatinine (U) [Mass/Vol] 74.70 mg/dL NO RANGE EST. [facility] Urine protein measurement (m ass/volume)Ordered By: Adam Ferraro on 11-17-2022 Protein (U) [Mass/Vol] 16.5 mg/dL 0.0-11.8 [facility] Urine protein/creatinine mas s ratioOrdered By: Adam Ferraro on 11-17-2022 Protein/Creatinine (U) [Mass ratio] 221 mg/g CRE 0-200 [facility] Absolute lymphocyte countOrd ered By: Alfredo Phipps on 11-12-2022 Lymphocytes Auto (Unsp spec) [#/Vol] 2.11 10*3/uL 0.83-4.51 [facility] Basophil percentageOrdered B y: Alfredo Phipps on 11-12-2022 Basophil percentage 3.3 mg/dL 2.5-4.9 [facility] Basophils/100 WBC (Bld) 0.7 % 0-1 [facility] Chloride [Moles/Vol] 106 mmol/L 98-107 [facility] Eosinophils/100 WBC (Bld) 2.4 % 0-5 [facility] Glucose [Mass/Vol] 169 mg/dL 74-106 [facility] Comment on above: Fasting Glucose resu lt greater than or equal to 126 mg/dL suggests DIABETES MELLITUS per A.D.A. criteria. Neutrophils (Bld) [#/Vol] 6.1 10*3/uL 2.0-7.7 [facility] Neutrophils/100 WBC (Bld) 63.5 % 47-70 [facility] Potassium [Moles/Vol] 3.5 mmol/L 3.5-5.1 [facility] Sodium [Moles/Vol] 138 mmol/L 136-145 [facility] WBC (Bld) [#/Vol] 9.6 10*3/uL 4.4-11.0 [facility] Blood erythrocytes count (nu mber/volume)Ordered By: Alfredo Phipps on 11-12-2022 RBC (Bld) [#/Vol] 4.67 10*6/uL 4.6-6.2 [facility] Blood hemoglobin measurement (mass/volume)Ordered By: Alfredo Phipps on 11-12-2022 Hemoglobin (Bld) [Mass/Vol] 13.9 g/dL 13.0-16.5 [facility] Blood lymphocytes/100 leukoc ytesOrdered By: Alfredo Phipps on 11-12-2022 Lymphocytes/100 WBC (Bld) 21.9 % 19-41 [facility] Blood monocytes/100 leukocyt esOrdered By: Alfredo Phipps on 11-12-2022 Monocytes/100 WBC (Bld) 10.8 % 0-10 [facility] Blood platelet mean volumeOr dered By: Alfredo Phipps on 11-12-2022 Platelet mean volume (Bld) [Entitic vol] 9.8 fL 6.2-12.0 [facility] Determination of erythrocyte mean corpuscular volume (MCV)Ordered By: Alfredo Phipps on 11-12-2022 MCV (RBC) [Entitic vol] 89.1 fL 80-94 [facility] Hematocrit Auto (Bld) [Volum e fraction]Ordered By: Alfredo Phipps on 11-12-2022 Hematocrit (Bld) [Volume fraction] 41.6 % 40-54 [facility] - Chemistry and C hemistry - challengeOrdered By: Alfredo Phipps on 11-12-2022 CO2 [Moles/Vol] 25.0 mmol/L 21.0-32.0 [facility] Urea nitrogen/Creatinine [Mass ratio] 11.4 mg/mg 10-20 [facility] - Hematology and Cell countsOrdered By: Alfredo Phipps on 11-12-2022 Erythrocyte distribution width (RBC) [Entitic vol] 43.2 fL 35.1-43.9 [facility] Erythrocyte distribution width (RBC) [Ratio] 13.2 % 11.6-14.6 [facility] Immature granulocytes/100 WBC (Bld) 0.700 % 0.0-0.9 [facility] Comment on above: IG% - Immature Granu locytes (promyelocytes, myelocytes and metamyelocytes) > 1% indicates that a LEFT SHIFT is Present. MCH (RBC) [Entitic mass] 29.8 pg 27.0-32.0 [facility] Nucleated RBC/100 WBC (Bld) [Ratio] 0 % 0-5 [facility] MCHC Auto (RBC) [Mass/Vol]Or dered By: Alfredo Phipps on 11-12-2022 MCHC (RBC) [Mass/Vol] 33.4 g/dL 32-36 [facility] No Panel InformationOrdered By: Alfredo Phipps on 11-12-2022 Estimated GFR (MDRD) Amer 48 mL/min >60 [facility] Comment on above: GFR Calc Estimated GFR (MDRD) Non-Af Amer 40 mL/min >60 [facility] Comment on above: Non- GFR Calc [place] Level 0.40 mmol/L 0.60-1.20 [facility] Platelets bldOrdered By: Jennifer Phipps on 11-12-2022 Platelets (Bld) [#/Vol] 200 10*3/uL 150-450 [facility] Serum or plasma albumin you urement (mass/volume)Ordered By: Alfredo Phipps on 11-12-2022 Albumin [Mass/Vol] 2.9 g/dL 3.2-5.0 [facility] Serum or plasma calcium you urement (mass/volume)Ordered By: Alfredo Phipps on 11-12-2022 Calcium [Mass/Vol] 8.7 mg/dL 8.5-10.1 [facility] Serum or plasma creatinine m easurement (mass/volume)Ordered By: Alfredo Phipps on 11-12-2022 Creatinine [Mass/Vol] 1.85 mg/dL 0.70-1.30 [facility] Comment on above: The validity of the calculated GFR & GFRAA in patients over 70 years has not been determined. Clinical correlation is essential. Serum or plasma urea nitroge n measurement (mass/volume)Ordered By: Alfredo Phipps on 11-12-2022 Urea nitrogen [Mass/Vol] 21 mg/dL 7-18 [facility] Serum or plasma uric acid me asurement (mass/volume)Ordered By: Alfredo Phipps on 10-27-2022 Urate [Mass/Vol] 6.4 mg/dL 3.5-7.2 [facility] Comment on above: The drugs N-Acetylcy steine and Metamizole may falsely depress this assay. Absolute lymphocyte countOrd ered By: Alfredo Phipps on 10-15-2022 Lymphocytes Auto (Unsp spec) [#/Vol] 2.30 10*3/uL 0.83-4.51 [facility] Basophil percentageOrdered B y: Alfredo Phipps on 10-15-2022 Basophil percentage 4.2 mg/dL 2.5-4.9 [facility] Basophils/100 WBC (Bld) 1.0 % 0-1 [facility] Chloride [Moles/Vol] 108 mmol/L 98-107 [facility] Eosinophils/100 WBC (Bld) 3.2 % 0-5 [facility] Glucose [Mass/Vol] 168 mg/dL 74-106 [facility] Comment on above: Fasting Glucose resu lt greater than or equal to 126 mg/dL suggests DIABETES MELLITUS per A.D.A. criteria. Neutrophils (Bld) [#/Vol] 4.8 10*3/uL 2.0-7.7 [facility] Neutrophils/100 WBC (Bld) 58.3 % 47-70 [facility] Potassium [Moles/Vol] 4.1 mmol/L 3.5-5.1 [facility] Comment on above: Slight Hemolysis, Re sult may be falsely increased. Sodium [Moles/Vol] 140 mmol/L 136-145 [facility] WBC (Bld) [#/Vol] 8.3 10*3/uL 4.4-11.0 [facility] Blood erythrocytes count (nu mber/volume)Ordered By: Alfredo Phipps on 10-15-2022 RBC (Bld) [#/Vol] 4.81 10*6/uL 4.6-6.2 [facility] Blood hemoglobin measurement (mass/volume)Ordered By: Alfredo Phipps on 10-15-2022 Hemoglobin (Bld) [Mass/Vol] 13.9 g/dL 13.0-16.5 [facility] Blood lymphocytes/100 leukoc ytesOrdered By: Alfredo Phipps on 10-15-2022 Lymphocytes/100 WBC (Bld) 27.6 % 19-41 [facility] Blood monocytes/100 leukocyt esOrdered By: Alfredo Phipps on 10-15-2022 Monocytes/100 WBC (Bld) 9.1 % 0-10 [facility] Blood platelet mean volumeOr dered By: Alfredo Phipps on 10-15-2022 Platelet mean volume (Bld) [Entitic vol] 10.1 fL 6.2-12.0 [facility] Determination of erythrocyte mean corpuscular volume (MCV)Ordered By: Alfredo Phipps on 10-15-2022 MCV (RBC) [Entitic vol] 89.4 fL 80-94 [facility] Hematocrit Auto (Bld) [Volum e fraction]Ordered By: Alfredo Phipps on 10-15-2022 Hematocrit (Bld) [Volume fraction] 43.0 % 40-54 [facility] - Chemistry and C hemistry - challengeOrdered By: Alfredo Phipps on 10-15-2022 CO2 [Moles/Vol] 28.0 mmol/L 21.0-32.0 [facility] Urea nitrogen/Creatinine [Mass ratio] 11.3 mg/mg 10-20 [facility] - Hematology and Cell countsOrdered By: Alferdo Phipps on 10-15-2022 Erythrocyte distribution width (RBC) [Entitic vol] 42.9 fL 35.1-43.9 [facility] Erythrocyte distribution width (RBC) [Ratio] 13.2 % 11.6-14.6 [facility] Immature granulocytes/100 WBC (Bld) 0.800 % 0.0-0.9 [facility] Comment on above: IG% - Immature Granu locytes (promyelocytes, myelocytes and metamyelocytes) > 1% indicates that a LEFT SHIFT is Present. MCH (RBC) [Entitic mass] 28.9 pg 27.0-32.0 [facility] Nucleated RBC/100 WBC (Bld) [Ratio] 0 % 0-5 [facility] Auto (RBC) [Mass/Vol]Or dered By: Alfredo Phipps on 10-15-2022 MCHC (RBC) [Mass/Vol] 32.3 g/dL 32-36 [facility] No Panel InformationOrdered By: Alfredo Phipps on 10-15-2022 Estimated GFR (MDRD) Amer 46 mL/min >60 [facility] Comment on above: GFR Calc Estimated GFR (MDRD) Non-Af Amer 38 mL/min >60 [facility] Comment on above: Non- GFR Calc [place] Level 0.50 mmol/L 0.60-1.20 [facility] Platelets bldOrdered By: Jennifer Phipps on 10-15-2022 Platelets (Bld) [#/Vol] 200 10*3/uL 150-450 [facility] Serum or plasma albumin you urement (mass/volume)Ordered By: Alfredo Phipps on 10-15-2022 Albumin [Mass/Vol] 2.9 g/dL 3.2-5.0 [facility] Serum or plasma calcium you urement (mass/volume)Ordered By: Alfredo Phipps on 10-15-2022 Calcium [Mass/Vol] 9.1 mg/dL 8.5-10.1 [facility] Serum or plasma creatinine m easurement (mass/volume)Ordered By: Alfredo Phipps on 10-15-2022 Creatinine [Mass/Vol] 1.94 mg/dL 0.70-1.30 [facility] Comment on above: The validity of the calculated GFR & GFRAA in patients over 70 years has not been determined. Clinical correlation is essential. Serum or plasma urea nitroge n measurement (mass/volume)Ordered By: Alfredo Phipps on 10-15-2022 Urea nitrogen [Mass/Vol] 22 mg/dL 7-18 [facility] Serum or plasma uric acid me asurement (mass/volume)Ordered By: Alfredo Phipps on 09-27-2022 Urate [Mass/Vol] 7.0 mg/dL 3.5-7.2 [facility] Comment on above: The drugs N-Acetylcy steine and Metamizole may falsely depress this assay. Absolute lymphocyte countOrd ered By: Adam Ferraro on 09-17-2022 Lymphocytes Auto (Unsp spec) [#/Vol] 2.69 10*3/uL 0.83-4.51 [facility] Basophil percentageOrdered B y: Adam Ferraro on 09-17-2022 Basophil percentage 3.8 mg/dL 2.5-4.9 [facility] Basophils/100 WBC (Bld) 0.9 % 0-1 [facility] Chloride [Moles/Vol] 105 mmol/L 98-107 [facility] Eosinophils/100 WBC (Bld) 3.2 % 0-5 [facility] Glucose [Mass/Vol] 141 mg/dL 74-106 [facility] Comment on above: Fasting Glucose resu lt greater than or equal to 126 mg/dL suggests DIABETES MELLITUS per A.D.A. criteria. Neutrophils (Bld) [#/Vol] 5.1 10*3/uL 2.0-7.7 [facility] Neutrophils/100 WBC (Bld) 56.1 % 47-70 [facility] Potassium [Moles/Vol] 3.8 mmol/L 3.5-5.1 [facility] Sodium [Moles/Vol] 139 mmol/L 136-145 [facility] WBC (Bld) [#/Vol] 9.0 10*3/uL 4.4-11.0 [facility] Blood erythrocytes count (nu mber/volume)Ordered By: Adam Ferraro on 09-17-2022 RBC (Bld) [#/Vol] 4.99 10*6/uL 4.6-6.2 [facility] Blood hemoglobin measurement (mass/volume)Ordered By: Adam Ferraro on 09-17-2022 Hemoglobin (Bld) [Mass/Vol] 14.8 g/dL 13.0-16.5 [facility] Blood lymphocytes/100 leukoc ytesOrdered By: Adam Ferraro on 09-17-2022 Lymphocytes/100 WBC (Bld) 29.8 % 19-41 [facility] Blood monocytes/100 leukocyt esOrdered By: Adam Ferraro on 09-17-2022 Monocytes/100 WBC (Bld) 9.4 % 0-10 [facility] Blood platelet mean volumeOr dered By: Adam Ferraro on 09-17-2022 Platelet mean volume (Bld) [Entitic vol] 10.2 fL 6.2-12.0 [facility] Determination of erythrocyte mean corpuscular volume (MCV)Ordered By: Adam Ferraro on 09-17-2022 MCV (RBC) [Entitic vol] 88.6 fL 80-94 [facility] Hematocrit Auto (Bld) [Volum e fraction]Ordered By: Adam Ferraro on 09-17-2022 Hematocrit (Bld) [Volume fraction] 44.2 % 40-54 [facility] Laboratory - Chemistry and C hemistry - challengeOrdered By: Adam Ferraro on 09-17-2022 CO2 [Moles/Vol] 26.0 mmol/L 21.0-32.0 [facility] Urea nitrogen/Creatinine [Mass ratio] 11.4 mg/mg 10-20 [facility] Laboratory - Hematology and Cell countsOrdered By: Adam Ferraro on 09-17-2022 Erythrocyte distribution width (RBC) [Entitic vol] 42.8 fL 35.1-43.9 [facility] Erythrocyte distribution width (RBC) [Ratio] 13.2 % 11.6-14.6 [facility] Immature granulocytes/100 WBC (Bld) 0.600 % 0.0-0.9 [facility] Comment on above: IG% - Immature Granu locytes (promyelocytes, myelocytes and metamyelocytes) > 1% indicates that a LEFT SHIFT is Present. MCH (RBC) [Entitic mass] 29.7 pg 27.0-32.0 [facility] Nucleated RBC/100 WBC (Bld) [Ratio] 0 % 0-5 [facility] MCHC Auto (RBC) [Mass/Vol]Or dered By: Adam Ferraro on 09-17-2022 MCHC (RBC) [Mass/Vol] 33.5 g/dL 32-36 [facility] No Panel InformationOrdered By: Adam Ferraro on 09-17-2022 [place] Level 0.50 mmol/L 0.60-1.20 [facility] Estimated GFR (MDRD) Amer 51 mL/min >60 [facility] Comment on above: GFR Calc Estimated GFR (MDRD) Non-Af Amer 42 mL/min >60 [facility] Comment on above: Non- GFR Calc Platelets bldOrdered By: Benoit Ferraro on 09-17-2022 Platelets (Bld) [#/Vol] 178 10*3/uL 150-450 [facility] Serum or plasma albumin you urement (mass/volume)Ordered By: Adam Ferraro on 09-17-2022 Albumin [Mass/Vol] 3.0 g/dL 3.2-5.0 [facility] Serum or plasma calcium you urement (mass/volume)Ordered By: Adam Ferraro on 09-17-2022 Calcium [Mass/Vol] 9.0 mg/dL 8.5-10.1 [facility] Serum or plasma creatinine m easurement (mass/volume)Ordered By: Adam Ferraro on 09-17-2022 Creatinine [Mass/Vol] 1.76 mg/dL 0.70-1.30 [facility] Comment on above: The validity of the calculated GFR & GFRAA in patients over 70 years has not been determined. Clinical correlation is essential. Serum or plasma urea nitroge n measurement (mass/volume)Ordered By: Adam Ferraro on 09-17-2022 Urea nitrogen [Mass/Vol] 20 mg/dL 7-18 [facility] Urine creatinine measurement (mass/volume)Ordered By: Adam Ferraro on 09-17-2022 Creatinine (U) [Mass/Vol] 128.00 mg/dL NO RANGE EST. [facility] Urine protein measurement (m ass/volume)Ordered By: Adam Ferraro on 09-17-2022 Protein (U) [Mass/Vol] 20.9 mg/dL 0.0-11.8 [facility] Urine protein/creatinine mas s ratioOrdered By: Adam Ferraro on 09-17-2022 Protein/Creatinine (U) [Mass ratio] 163 mg/g CRE 0-200 [facility] Serum or plasma uric acid me asurement (mass/volume)Ordered By: Adam Ferraro on 08-27-2022 Urate [Mass/Vol] 6.4 mg/dL 3.5-7.2 [facility] Comment on above: The drugs N-Acetylcy steine and Metamizole may falsely depress this assay. No Panel InformationOrdered By: Adam Ferraro on 08-23-2022 [place] Level 0.40 mmol/L 0.60-1.20 [facility] Culture, urineOrdered By: Chan Fiore on 08-15-2022 Bacteria identified Cx Nom (U) Streptococcus mitis [facility] Absolute lymphocyte countOrd ered By: Alfredo Phipps on 08-12-2022 Lymphocytes Auto (Unsp spec) [#/Vol] 2.09 10*3/uL 0.83-4.51 [facility] Basophil percentageOrdered B y: Alfredo Phipps on 08-12-2022 Basophil percentage 3.6 mg/dL 2.5-4.9 [facility] Basophils/100 WBC (Bld) 0.9 % 0-1 [facility] Chloride [Moles/Vol] 107 mmol/L 98-107 [facility] Eosinophils/100 WBC (Bld) 2.8 % 0-5 [facility] Glucose [Mass/Vol] 151 mg/dL 74-106 [facility] Comment on above: Fasting Glucose resu lt greater than or equal to 126 mg/dL suggests DIABETES MELLITUS per A.D.A. criteria. Neutrophils (Bld) [#/Vol] 5.5 10*3/uL 2.0-7.7 [facility] Neutrophils/100 WBC (Bld) 63.4 % 47-70 [facility] Potassium [Moles/Vol] 4.0 mmol/L 3.5-5.1 [facility] Sodium [Moles/Vol] 140 mmol/L 136-145 [facility] WBC (Bld) [#/Vol] 8.7 10*3/uL 4.4-11.0 [facility] Basophil percentage 10-25 SEEN /hpf 0-5 [facility] Bilirubin Test strip Ql (U)O rdered By: Alfredo Phipps on 08-12-2022 Bilirubin Ql (U) Negative Negative [facility] Blood erythrocytes count (nu mber/volume)Ordered By: Alfredo Phipps on 08-12-2022 RBC (Bld) [#/Vol] 4.92 10*6/uL 4.6-6.2 [facility] Blood hemoglobin measurement (mass/volume)Ordered By: Alfredo Phipps on 08-12-2022 Hemoglobin (Bld) [Mass/Vol] 14.5 g/dL 13.0-16.5 [facility] Blood lymphocytes/100 leukoc ytesOrdered By: Alfredo Phipps on 08-12-2022 Lymphocytes/100 WBC (Bld) 24.1 % 19-41 [facility] Blood monocytes/100 leukocyt esOrdered By: Alfredo Phipps on 08-12-2022 Monocytes/100 WBC (Bld) 8.3 % 0-10 [facility] Blood platelet mean volumeOr dered By: Alfredo Phpips on 08-12-2022 Platelet mean volume (Bld) [Entitic vol] 9.8 fL 6.2-12.0 [facility] Determination of erythrocyte mean corpuscular volume (MCV)Ordered By: Alfredo Phipps on 08-12-2022 MCV (RBC) [Entitic vol] 91.1 fL 80-94 [facility] Hematocrit Auto (Bld) [Volum e fraction]Ordered By: Alfredo Phipps on 08-12-2022 Hematocrit (Bld) [Volume fraction] 44.8 % 40-54 [facility] Ketones Test strip Ql (U)Ord ered By: Alfredo Phipps on 08-12-2022 Ketones Ql (U) Negative Negative [facility] Laboratory - Chemistry and C hemistry - challengeOrdered By: Alfredo Phipps on 08-12-2022 CO2 [Moles/Vol] 25.0 mmol/L 21.0-32.0 [facility] Urea nitrogen/Creatinine [Mass ratio] 14.9 mg/mg 10-20 [facility] - Hematology and Cell countsOrdered By: Alfredo Phipps on 08-12-2022 Erythrocyte distribution width (RBC) [Entitic vol] 43.3 fL 35.1-43.9 [facility] Erythrocyte distribution width (RBC) [Ratio] 12.9 % 11.6-14.6 [facility] Immature granulocytes/100 WBC (Bld) 0.500 % 0.0-0.9 [facility] Comment on above: IG% - Immature Granu locytes (promyelocytes, myelocytes and metamyelocytes) > 1% indicates that a LEFT SHIFT is Present. MCH (RBC) [Entitic mass] 29.5 pg 27.0-32.0 [facility] Nucleated RBC/100 WBC (Bld) [Ratio] 0 % 0-5 [facility] MCHC Auto (RBC) [Mass/Vol]Or dered By: Alferdo Phipps on 08-12-2022 MCHC (RBC) [Mass/Vol] 32.4 g/dL 32-36 [facility] Mucus LM Ql (Urine sed)Order ed By: Alfredo Phipps on 08-12-2022 Mucus Ql (Urine sed) Not Reportable [facility] Nitrite Test strip Ql (U)Ord ered By: Alfredo Phipps on 08-12-2022 Nitrite Ql (U) Negative Negative [facility] No Panel InformationOrdered By: Alfredo Phipps on 08-12-2022 Estimated GFR (MDRD) Amer 54 mL/min >60 [facility] Comment on above: GFR Calc Estimated GFR (MDRD) Non-Af Amer 45 mL/min >60 [facility] Comment on above: Non- GFR Calc Platelets bldOrdered By: Pet shonda Phipps on 08-12-2022 Platelets (Bld) [#/Vol] 238 10*3/uL 150-450 [facility] Protein Test strip Ql (U)Ord ered By: Alfredo Phipps on 08-12-2022 Protein Ql (U) 15 mg/dl Negative [facility] Serum or plasma albumin you urement (mass/volume)Ordered By: Alfredo Phipps on 08-12-2022 Albumin [Mass/Vol] 2.9 g/dL 3.2-5.0 [facility] Serum or plasma calcium you urement (mass/volume)Ordered By: Alfredo Phipps on 08-12-2022 Calcium [Mass/Vol] 9.2 mg/dL 8.5-10.1 [facility] Serum or plasma creatinine m easurement (mass/volume)Ordered By: Alfredo Phipps on 08-12-2022 Creatinine [Mass/Vol] 1.68 mg/dL 0.70-1.30 [facility] Comment on above: The validity of the calculated GFR & GFRAA in patients over 70 years has not been determined. Clinical correlation is essential. Serum or plasma urea nitroge n measurement (mass/volume)Ordered By: Alfredo Phipps on 08-12-2022 Urea nitrogen [Mass/Vol] 25 mg/dL 7-18 [facility] Squamous epithelial cells de tection in urine sediment by light microscopyOrdered By: Alfredo Phipps on 08-12-2022 Epithelial cells.squamous LM Ql (Urine sed) 0-5 SEEN /hpf 0-5 [facility] Urine blood detectionOrdered By: Alfredo Phipps on 08-12-2022 RBC Ql (U) Negative Negative [facility] RBC Ql (U) 0 SEEN /hpf 0-5 [facility] Urine clarityOrdered By: Jennifer Phipps on 08-12-2022 Clarity (U) Clear Clear [facility] Urine color determinationOrd ered By: Alfredo Phipps on 08-12-2022 Color (U) Yellow Yellow [facility] Urine creatinine measurement (mass/volume)Ordered By: Alfredo Phipps on 08-12-2022 Creatinine (U) [Mass/Vol] 102.00 mg/dL NO RANGE EST. [facility] Urine glucose detectionOrder ed By: Alfredo Phipps on 08-12-2022 Glucose Ql (U) Normal mg/dl Normal [facility] Urine leukocyte esterase det ection by dipstickOrdered By: Alfredo Phipps on 08-12-2022 Leukocyte esterase Test strip Ql (U) 500 /ul Negative [facility] Urine pHOrdered By: Alfredo saha on 08-12-2022 pH (U) 6.0 [pH] 5.0 - 8.0 [facility] Urine protein measurement (m ass/volume)Ordered By: Alfredo Phipps on 08-12-2022 Protein (U) [Mass/Vol] 19.9 mg/dL 0.0-11.8 [facility] Urine protein/creatinine mas s ratioOrdered By: Alfredo Phipps on 08-12-2022 Protein/Creatinine (U) [Mass ratio] 195 mg/g CRE 0-200 [facility] Urine sediment bacteria coun t by microscopy (number/high power field)Ordered By: Alfredo Phipps on 08-12-2022 Bacteria LM.HPF (Urine sed) [#/Area] RARE /hpf None Seen [facility] Urine specific gravity measu rementOrdered By: Alfredo Phipps on 08-12-2022 Specific gravity (U) [Rel density] 1.015 1.002-1.030 [facility] Urobilinogen Auto test strip Ql (U)Ordered By: Alfredo Phipps on 08-12-2022 Urobilinogen Ql (U) Normal mg/dl Normal [facility] No Panel Informationon 07-28 [place] Level 0.60 mmol/L 0.60-1.20 [facility] Work Phone: Serum or plasma uric acid me asurement (mass/volume)on 07-28-2022 Urate [Mass/Vol] 6.3 mg/dL 3.5-7.2 [facility] Work Phone: Comment on above: The drugs N-Acetylcy steine and Metamizole may falsely depress this assay. URINALYSIS, REFLEX MICROSCOP ICon 07-27-2022 Bilirubin Ql (U) Negative Negative [facility] Clarity (Unsp spec) Clear Clear [facility] Color (U) Colorless Yellow [facility] Glucose Test strip (U) [Mass/Vol] Negative Negative [facility] Hemoglobin Ql (U) Negative Negative [facility] Ketones Ql (U) Negative Negative [facility] Leukocyte esterase Test strip Ql (U) Negative Negative [facility] Nitrite Ql (U) Negative Negative [facility] pH (U) 6.5 [pH] 5.0 - 8.0 [facility] Protein (U) [Mass/Vol] Negative Negative [facility] Specific gravity (U) [Rel density] 1.009 1.005 - 1.030 [facility] Urobilinogen Ql (U) Negative Negative [facility] Absolute lymphocyte counton 07-15-2022 Lymphocytes Auto (Unsp spec) [#/Vol] 1.93 10*3/uL 0.83-4.51 [facility] Work Phone: Basophil percentageon 2021 Basophil percentage 3.9 mg/dL 2.5-4.9 [facility] Work Phone: Basophils/100 WBC (Bld) 1.3 % 0-1 [facility] Work Phone: Chloride [Moles/Vol] 107 mmol/L 98-107 [facility] Work Phone: Eosinophils/100 WBC (Bld) 1.7 % 0-5 [facility] Work Phone: Glucose [Mass/Vol] 126 mg/dL 74-106 [facility] Work Phone: Comment on above: Fasting Glucose resu lt greater than or equal to 126 mg/dL suggests DIABETES MELLITUS per A.D.A. criteria. Neutrophils (Bld) [#/Vol] 6.1 10*3/uL 2.0-7.7 [facility] Work Phone: Neutrophils/100 WBC (Bld) 66.5 % 47-70 [facility] Work Phone: Potassium [Moles/Vol] 4.4 mmol/L 3.5-5.1 [facility] Work Phone: Sodium [Moles/Vol] 139 mmol/L 136-145 [facility] Work Phone: WBC (Bld) [#/Vol] 9.2 10*3/uL 4.4-11.0 [facility] Work Phone: Bilirubin Test strip Ql (U)o n 07-15-2022 Bilirubin Ql (U) Negative Negative [facility] Work Phone: Blood erythrocytes count (nu mber/volume)on 07-15-2022 RBC (Bld) [#/Vol] 5.01 10*6/uL 4.6-6.2 [facility] Work Phone: Blood hemoglobin measurement (mass/volume)on 07-15-2022 Hemoglobin (Bld) [Mass/Vol] 14.8 g/dL 13.0-16.5 [facility] Work Phone: Blood lymphocytes/100 leukoc yteson 07-15-2022 Lymphocytes/100 WBC (Bld) 20.9 % 19-41 [facility] Work Phone: Blood monocytes/100 leukocyt eson 07-15-2022 Monocytes/100 WBC (Bld) 8.9 % 0-10 [facility] Work Phone: Blood platelet mean volumeon 07-15-2022 Platelet mean volume (Bld) [Entitic vol] 9.7 fL 6.2-12.0 [facility] Work Phone: Determination of erythrocyte mean corpuscular volume (MCV)on 07-15-2022 MCV (RBC) [Entitic vol] 91.8 fL 80-94 [facility] Work Phone: Hematocrit Auto (Bld) [Volum e fraction]on 07-15-2022 Hematocrit (Bld) [Volume fraction] 46.0 % 40-54 [facility] Work Phone: Ketones Test strip Ql (U)on 07-15-2022 Ketones Ql (U) Negative Negative [facility] Work Phone: Laboratory - Chemistry and C hemistry - challengeon 07-15-2022 CO2 [Moles/Vol] 25.0 mmol/L 21.0-32.0 [facility] Work Phone: Urea nitrogen/Creatinine [Mass ratio] 14.9 mg/mg 10-20 [facility] Work Phone: Laboratory - Hematology and Cell countson 07-15-2022 Erythrocyte distribution width (RBC) [Entitic vol] 44.0 fL 35.1-43.9 [facility] Work Phone: Erythrocyte distribution width (RBC) [Ratio] 13.1 % 11.6-14.6 [facility] Work Phone: Immature granulocytes/100 WBC (Bld) 0.700 % 0.0-0.9 [facility] Work Phone: Comment on above: IG% - Immature Granu locytes (promyelocytes, myelocytes and metamyelocytes) > 1% indicates that a LEFT SHIFT is Present. MCH (RBC) [Entitic mass] 29.5 pg 27.0-32.0 [facility] Work Phone: Nucleated RBC/100 WBC (Bld) [Ratio] 0 % 0-5 [facility] Work Phone: MCHC Auto (RBC) [Mass/Vol]on 07-15-2022 MCHC (RBC) [Mass/Vol] 32.2 g/dL 32-36 [facility] Work Phone: Nitrite Test strip Ql (U)on 07-15-2022 Nitrite Ql (U) Negative Negative [facility] Work Phone: No Panel Informationon 07-15 Estimated GFR (MDRD) Amer 54 mL/min >60 [facility] Work Phone: Comment on above: GFR Calc Estimated GFR (MDRD) Non-Af Amer 45 mL/min >60 [facility] Work Phone: Comment on above: Non- GFR Calc Platelets bldon 07-15-2022 Platelets (Bld) [#/Vol] 231 10*3/uL 150-450 [facility] Work Phone: Protein Test strip Ql (U)on 07-15-2022 Protein Ql (U) 30 mg/dl Negative [facility] Work Phone: Serum or plasma albumin you urement (mass/volume)on 07-15-2022 Albumin [Mass/Vol] 3.1 g/dL 3.2-5.0 [facility] Work Phone: Serum or plasma calcium you urement (mass/volume)on 07-15-2022 Calcium [Mass/Vol] 8.6 mg/dL 8.5-10.1 [facility] Work Phone: Serum or plasma creatinine m easurement (mass/volume)on 07-15-2022 Creatinine [Mass/Vol] 1.68 mg/dL 0.70-1.30 [facility] Work Phone: Comment on above: The validity of the calculated GFR & GFRAA in patients over 70 years has not been determined. Clinical correlation is essential. Serum or plasma urea nitroge n measurement (mass/volume)on 07-15-2022 Urea nitrogen [Mass/Vol] 25 mg/dL 7-18 [facility] Work Phone: Urine blood detectionon 09-0 RBC Ql (U) Negative Negative [facility] Work Phone: Urine clarityon 07-15-2022 Clarity (U) Sl. Cloudy Clear [facility] Work Phone: Urine color determinationon 07-15-2022 Color (U) Yellow Yellow [facility] Work Phone: Urine creatinine measurement (mass/volume)on 07-15-2022 Creatinine (U) [Mass/Vol] 114.00 mg/dL NO RANGE EST. [facility] Work Phone: Urine glucose detectionon Glucose Ql (U) Normal mg/dl Normal [facility] Work Phone: Urine leukocyte esterase det ection by dipstickon 07-15-2022 Leukocyte esterase Test strip Ql (U) 100 /ul Negative [facility] Work Phone: Urine pHon 07-15-2022 pH (U) 6.0 [pH] 5.0 - 8.0 [facility] Work Phone: Urine protein measurement (m ass/volume)on 07-15-2022 Protein (U) [Mass/Vol] 26.5 mg/dL 0.0-11.8 [facility] Work Phone: Urine protein/creatinine mas s ratioon 07-15-2022 Protein/Creatinine (U) [Mass ratio] 232 mg/g CRE 0-200 [facility] Work Phone: Urine specific gravity measu rementon 07-15-2022 Specific gravity (U) [Rel density] 1.015 1.002-1.030 [facility] Work Phone: Urobilinogen Auto test strip Ql (U)on 07-15-2022 Urobilinogen Ql (U) Normal mg/dl Normal [facility] Work Phone: Basophil percentageon 2021 Cholesterol [Mass/Vol] 149 mg/dL <200 [facility] Work Phone: Comment on above: <200 mg/dL Desirable 200-240 mg/dL Borderline >240 mg/dL High Risk Triglyceride [Mass/Vol] 379 mg/dL <199 [facility] Work Phone: Comment on above: The drugs N-Acetylcy steine and Metamizole may falsely depress this assay.Serum Triglycerides Reference Interval Normal <150 mg/dL Borderline high 150 - 199 mg/dL High 200 - 499 mg/dL Very High > or = 500 mg/dL No Panel Informationon 06-28 [place] Level 0.40 mmol/L 0.60-1.20 [facility] Work Phone: Serum or plasma cholesterol in HDL measurement (mass/volume)on 06-28-2022 Cholesterol in HDL [Mass/Vol] 34 mg/dL >40 [facility] Work Phone: Comment on above: The drugs N-Acetylcy steine and Metamizole may falsely depress this assay. Reference Range HDL <40 mg/dL Low HDL Cholesterol HDL >or= 60 mg/dL High HDL Cholesterol Serum or plasma cholesterol in VLDL measurement (mass/volume)on 06-28-2022 Cholesterol in VLDL [Mass/Vol] 76 mg/dL 5-40 [facility] Work Phone: Serum or plasma low density lipoprotein (LDL) cholesterol measurement (mass/volume)on 06-28-2022 Cholesterol in LDL [Mass/Vol] 39 mg/dL 0-130 [facility] Work Phone: Serum or plasma uric acid me asurement (mass/volume)on 06-28-2022 Urate [Mass/Vol] 5.9 mg/dL 3.5-7.2 [facility] Work Phone: Comment on above: The drugs N-Acetylcy steine and Metamizole may falsely depress this assay. Absolute lymphocyte counton 06-17-2022 Lymphocytes Auto (Unsp spec) [#/Vol] 2.02 10*3/uL 0.83-4.51 [facility] Work Phone: Basophil percentageon 2021 Basophil percentage 0-5 SEEN /hpf 0-5 [place] [facility] [place]: Basophil percentage 3.8 mg/dL 2.5-4.[address] [facility] Work [place]: Basophils/100 WBC (Bld) 0.8 % 0-1 [facility] Work Phone: [phone] Chloride [Moles/Vol] 108 mmol/L 98-[address] [facility] Work [place]: Eosinophils/100 WBC (Bld) 2.9 % 0-5 [facility] Work Phone: Glucose [Mass/Vol] 133 mg/dL 74-106 [facility] Work Phone: Comment on above: Fasting Glucose resu lt greater than or equal to 126 mg/dL suggests DIABETES MELLITUS per A.D.A. criteria. Neutrophils (Bld) [#/Vol] 5.3 10*3/uL 2.0-7.7 [facility] Work Phone: Neutrophils/100 WBC (Bld) 61.6 % 47-70 [facility] Work Phone: Potassium [Moles/Vol] 3.8 mmol/L 3.5-5.[address] [place] [place] [facility] Work Phone: Sodium [Moles/Vol] 140 mmol/L 136-145 [facility] Work Phone: WBC (Bld) [#/Vol] 8.6 10*3/uL 4.4-11.0 [facility] Work Phone: [phone] Bilirubin Test strip Ql (U)o n 06-17-2022 Bilirubin Ql (U) Negative Negative [facility] Work Phone: Blood erythrocytes count (nu mber/volume)on 06-17-2022 RBC (Bld) [#/Vol] 4.46 10*6/uL 4.6-6.2 [facility] Work Phone: Blood hemoglobin measurement (mass/volume)on 06-17-2022 Hemoglobin (Bld) [Mass/Vol] 13.4 g/dL 13.0-16.5 [facility] Work Phone: Blood lymphocytes/100 leukoc yteson 06-17-2022 Lymphocytes/100 WBC (Bld) 23.5 % 19-41 [facility] Work Phone: Blood monocytes/100 leukocyt eson 06-17-2022 Monocytes/100 WBC (Bld) 10.0 % 0-10 [facility] Work Phone: Blood platelet mean volumeon 06-17-2022 Platelet mean volume (Bld) [Entitic vol] 9.6 fL 6.2-12.0 [facility] Work Phone: Determination of erythrocyte mean corpuscular volume (MCV)on 06-17-2022 MCV (RBC) [Entitic vol] 91.3 fL 80-94 [facility] Work Phone: Hematocrit Auto (Bld) [Volum e fraction]on 06-17-2022 Hematocrit (Bld) [Volume fraction] 40.7 % 40-54 [facility] Work Phone: Ketones Test strip Ql (U)on 06-17-2022 Ketones Ql (U) Negative Negative [facility] Work Phone: Laboratory - Chemistry and C hemistry - challengeon 06-17-2022 CO2 [Moles/Vol] 25.0 mmol/L 21.0-32.0 [facility] Work Phone: Urea nitrogen/Creatinine [Mass ratio] 12.6 mg/mg 10-20 [facility] Work Phone: Laboratory - Hematology and Cell countson 06-17-2022 Erythrocyte distribution width (RBC) [Entitic vol] 45.5 fL 35.1-43.9 [facility] Work Phone: Erythrocyte distribution width (RBC) [Ratio] 13.4 % 11.6-14.6 [facility] Work Phone: Immature granulocytes/100 WBC (Bld) 1.200 % 0.0-0.9 [facility] Work Phone: Comment on above: IG% - Immature Granu locytes (promyelocytes, myelocytes and metamyelocytes) > 1% indicates that a LEFT SHIFT is Present. MCH (RBC) [Entitic mass] 30.0 pg 27.0-32.0 [facility] Work Phone: Nucleated RBC/100 WBC (Bld) [Ratio] 0 % 0-5 [facility] Work Phone: MCHC Auto (RBC) [Mass/Vol]on 06-17-2022 MCHC (RBC) [Mass/Vol] 32.9 g/dL 32-36 [facility] Work Phone: Mucus LM Ql (Urine sed)on Mucus Ql (Urine sed) 0 SEEN /hpf [facility] Work Phone: Nitrite Test strip Ql (U)on 06-17-2022 Nitrite Ql (U) Negative Negative [facility] Work Phone: No Panel Informationon 06-17 Estimated GFR (MDRD) Amer 58 mL/min >60 [facility] Work Phone: Comment on above: GFR Calc Estimated GFR (MDRD) Non-Af Amer 48 mL/min >60 [facility] Work Phone: Comment on above: Non- GFR Calc Platelets bldon 06-17-2022 Platelets (Bld) [#/Vol] 178 10*3/uL 150-450 [facility] Work Phone: Protein Test strip Ql (U)on 06-17-2022 Protein Ql (U) 15 mg/dl Negative [facility] Work Phone: Serum or plasma albumin you urement (mass/volume)on 06-17-2022 Albumin [Mass/Vol] 2.8 g/dL 3.2-5.0 [facility] Work Phone: Serum or plasma calcium you urement (mass/volume)on 06-17-2022 Calcium [Mass/Vol] 8.6 mg/dL 8.5-10.1 [facility] Work Phone: Serum or plasma creatinine m easurement (mass/volume)on 06-17-2022 Creatinine [Mass/Vol] 1.59 mg/dL 0.70-1.30 [facility] Work Phone: Comment on above: The validity of the calculated GFR & GFRAA in patients over 70 years has not been determined. Clinical correlation is essential. Serum or plasma urea nitroge n measurement (mass/volume)on 06-17-2022 Urea nitrogen [Mass/Vol] 20 mg/dL 7-18 [facility] Work Phone: Squamous epithelial cells de tection in urine sediment by light microscopyon 06-17-2022 Epithelial cells.squamous LM Ql (Urine sed) 0-5 SEEN /hpf 0-5 [facility] Work Phone: Urine blood detectionon RBC Ql (U) Negative Negative [facility] Work Phone: RBC Ql (U) 0 SEEN /hpf 0-5 [facility] Work Phone: Urine clarityon 06-17-2022 Clarity (U) Clear Clear [facility] Work Phone: Urine color determinationon 06-17-2022 Color (U) Yellow [place] [facility] Work Phone: Urine creatinine measurement (mass/volume)on 06-17-2022 Creatinine (U) [Mass/Vol] 118.00 mg/dL NO RANGE EST. [facility] Work Phone: Urine glucose detectionon Glucose Ql (U) Normal mg/dl Normal [facility] Work Phone: Urine leukocyte esterase det ection by dipstickon 06-17-2022 Leukocyte esterase Test strip Ql (U) 100 /ul Negative [facility] Work Phone: Urine pHon 06-17-2022 pH (U) 6.0 [pH] 5.0 - 8.0 [facility] Work Phone: Urine protein measurement (m ass/volume)on 06-17-2022 Protein (U) [Mass/Vol] 22.0 mg/dL 0.0-11.8 [facility] Work Phone: Urine protein/creatinine mas s ratioon 06-17-2022 Protein/Creatinine (U) [Mass ratio] 186 mg/g CRE 0-200 [facility] Work Phone: Urine sediment bacteria coun t by microscopy (number/high power field)on 06-17-2022 Bacteria LM.HPF (Urine sed) [#/Area] 0 /[HPF] None Seen [facility] Work Phone: Urine specific gravity measu rementon 06-17-2022 Specific gravity (U) [Rel density] 1.015 1.002-1.030 [facility] Work Phone: Urobilinogen Auto test strip Ql (U)on 06-17-2022 Urobilinogen Ql (U) Normal mg/dl [facility] No Panel Informationon 05-27 [place] Level 0.40 mmol/L 0.60-1.20 [facility] Work Phone: Serum or plasma uric acid me asurement (mass/volume)on 05-27-2022 Urate [Mass/Vol] 6.1 mg/dL 3.5-7.2 [facility] Work Phone: Comment on above: The drugs N-Acetylcy steine and Metamizole may falsely depress this assay. Absolute lymphocyte counton 05-20-2022 Lymphocytes Auto (Unsp spec) [#/Vol] 2.07 10*3/uL 0.83-4.51 [facility] Work Phone: Basophil percentageon 2021 Basophil percentage 3.2 mg/dL 2.5-4.9 [facility] Work Phone: Basophils/100 WBC (Bld) 0.7 % 0-1 [facility] Work Phone: Chloride [Moles/Vol] 108 mmol/L 98-107 [facility] Work [facility]: Eosinophils/100 WBC (Bld) 2.5 % 0-5 [facility] Work Phone: Glucose [Mass/Vol] 149 mg/dL 74-106 [facility] Work Phone: Comment on above: Fasting Glucose resu lt greater than or equal to 126 mg/dL suggests DIABETES MELLITUS per A.D.A. criteria. Neutrophils (Bld) [#/Vol] 6.4 10*3/uL 2.0-7.7 [facility] Work Phone: Neutrophils/100 WBC (Bld) 65.6 % 47-70 [facility] Work Phone: Potassium [Moles/Vol] 3.9 mmol/L 3.5-5.1 [facility] Work Phone: Sodium [Moles/Vol] 140 mmol/L 136-145 [facility] Work Phone: WBC (Bld) [#/Vol] 9.7 10*3/uL 4.4-11.0 [facility] Work Phone: Basophil percentage 0-5 SEEN /hpf 0-5 [facility] Work Phone: [phone] Bilirubin Test strip Ql (U)o n 05-20-2022 Bilirubin Ql (U) Negative Negative [facility] Work Phone: [phone] Blood erythrocytes count (nu mber/volume)on 05-20-2022 RBC (Bld) [#/Vol] 4.36 10*6/uL 4.6-6.2 [facility] Work Phone: Blood hemoglobin measurement (mass/volume)on 05-20-2022 Hemoglobin (Bld) [Mass/Vol] 12.9 g/dL 13.0-16.5 [facility] Work Phone: Blood lymphocytes/100 leukoc yteson 05-20-2022 Lymphocytes/100 WBC (Bld) 21.4 % 19-41 [facility] Work Phone: Blood monocytes/100 leukocyt eson 05-20-2022 Monocytes/100 WBC (Bld) 9.3 % 0-10 [facility] Work Phone: Blood platelet mean volumeon 05-20-2022 Platelet mean volume (Bld) [Entitic vol] 9.6 fL 6.2-12.0 [facility] Work Phone: Determination of erythrocyte mean corpuscular volume (MCV)on 05-20-2022 MCV (RBC) [Entitic vol] 91.5 fL 80-94 [facility] Work Phone: Hematocrit Auto (Bld) [Volum e fraction]on 05-20-2022 Hematocrit (Bld) [Volume fraction] 39.9 % 40-54 [facility] Work Phone: Ketones Test strip Ql (U)on 05-20-2022 Ketones Ql (U) Negative Negative [facility] Work Phone: Laboratory - Chemistry and C hemistry - challengeon 05-20-2022 CO2 [Moles/Vol] 26.0 mmol/L 21.0-32.0 [facility] Work Phone: Urea nitrogen/Creatinine [Mass ratio] 9.9 mg/mg 10-20 [facility] Work Phone: Laboratory - Hematology and Cell countson 05-20-2022 Erythrocyte distribution width (RBC) [Entitic vol] 45.7 fL 35.1-43.9 [facility] Work Phone: Erythrocyte distribution width (RBC) [Ratio] 13.6 % 11.6-14.6 [facility] Work Phone: Immature granulocytes/100 WBC (Bld) 0.500 % 0.0-0.9 [facility] Work Phone: Comment on above: IG% - Immature Granu locytes (promyelocytes, myelocytes and metamyelocytes) > 1% indicates that a LEFT SHIFT is Present. MCH (RBC) [Entitic mass] 29.6 pg 27.0-32.0 [facility] Work Phone: Nucleated RBC/100 WBC (Bld) [Ratio] 0 % 0-5 [facility] Work Phone: MCHC Auto (RBC) [Mass/Vol]on 05-20-2022 MCHC (RBC) [Mass/Vol] 32.3 g/dL 32-36 [facility] Work Phone: Mucus LM Ql (Urine sed)on Mucus Ql (Urine sed) 0 SEEN /hpf [facility] Work Phone: Nitrite Test strip Ql (U)on 05-20-2022 Nitrite Ql (U) Negative Negative [facility] Work Phone: No Panel Informationon 05-20 Estimated GFR (MDRD) Amer 53 mL/min >60 [facility] Work Phone: Comment on above: GFR Calc Estimated GFR (MDRD) Non-Af Amer 44 mL/min >60 [facility] Work Phone: Comment on above: Non- GFR Calc Platelets bldon 05-20-2022 Platelets (Bld) [#/Vol] 197 10*3/uL 150-450 [facility] Work Phone: Protein Test strip Ql (U)on 05-20-2022 Protein Ql (U) Negative Negative [facility] Work Phone: Serum or plasma albumin you urement (mass/volume)on 05-20-2022 Albumin [Mass/Vol] 2.7 g/dL 3.2-5.0 [facility] Work Phone: Serum or plasma calcium you urement (mass/volume)on 05-20-2022 Calcium [Mass/Vol] 9.0 mg/dL 8.5-10.1 [facility] Work Phone: Serum or plasma creatinine m easurement (mass/volume)on 05-20-2022 Creatinine [Mass/Vol] 1.71 mg/dL 0.70-1.30 [facility] Work Phone: Comment on above: The validity of the calculated GFR & GFRAA in patients over 70 years has not been determined. Clinical correlation is essential. Serum or plasma urea nitroge n measurement (mass/volume)on 05-20-2022 Urea nitrogen [Mass/Vol] 17 mg/dL 7-18 [facility] Work Phone: Squamous epithelial cells de tection in urine sediment by light microscopyon 05-20-2022 Epithelial cells.squamous LM Ql (Urine sed) 0-5 SEEN /hpf 0-5 [facility] Work Phone: Urine blood detectionon RBC Ql (U) Negative Negative [facility] Work Phone: RBC Ql (U) 0 SEEN /hpf 0-5 [facility] Work Phone: Urine clarityon 05-20-2022 Clarity (U) Clear Clear [facility] Work Phone: Urine color determinationon 05-20-2022 Color (U) Yellow Yellow [facility] Work Phone: Urine creatinine measurement (mass/volume)on 05-20-2022 Creatinine (U) [Mass/Vol] 107.00 mg/dL NO RANGE EST. [facility] Work Phone: Urine glucose detectionon Glucose Ql (U) Normal mg/dl Normal [facility] Work Phone: Urine leukocyte esterase det ection by dipstickon 05-20-2022 Leukocyte esterase Test strip Ql (U) 25 /ul Negative [facility] Work Phone: Urine pHon 05-20-2022 pH (U) 6.5 [pH] 5.0 - 8.0 [facility] Work Phone: Urine protein measurement (m ass/volume)on 05-20-2022 Protein (U) [Mass/Vol] 17.3 mg/dL 0.0-11.8 [facility] Work Phone: Urine protein/creatinine mas s ratioon 05-20-2022 Protein/Creatinine (U) [Mass ratio] 162 mg/g CRE 0-200 [facility] Work Phone: Urine sediment bacteria coun t by microscopy (number/high power field)on 05-20-2022 Bacteria LM.HPF (Urine sed) [#/Area] 0 /[HPF] None Seen [facility] Work Phone: Urine specific gravity measu rementon 05-20-2022 Specific gravity (U) [Rel density] 1.010 1.002-1.030 [facility] Work Phone: [phone] Urobilinogen Auto test strip Ql (U)on 05-20-2022 Urobilinogen Ql (U) Normal mg/dl Normal [facility] Work Phone: No Panel Informationon 05-05 [facility] Absolute lymphocyte counton 04-27-2022 Lymphocytes Auto (Unsp spec) [#/Vol] 2.36 10*3/uL 0.83-4.51 [facility] Work Phone: Basophil percentageon 2021 Basophil percentage 4.6 mg/dL 2.5-4.9 [facility] Work Phone: Basophils/100 WBC (Bld) 0.3 % 0-1 [facility] Work Phone: Chloride [Moles/Vol] 104 mmol/L 98-107 [facility] Work Phone: Eosinophils/100 WBC (Bld) 0.1 % 0-5 [facility] Work Phone: Glucose [Mass/Vol] 190 mg/dL 74-106 [facility] Work Phone: Comment on above: Fasting Glucose resu lt greater than or equal to 126 mg/dL suggests DIABETES MELLITUS per A.D.A. criteria. Neutrophils (Bld) [#/Vol] 10.5 10*3/uL 2.0-7.7 [facility] Work Phone: Neutrophils/100 WBC (Bld) 72.0 % 47-70 [facility] Work Phone: Potassium [Moles/Vol] 3.8 mmol/L 3.5-5.1 [place] [facility] Work [facility]: Sodium [Moles/Vol] 140 mmol/L 136-145 [facility] Work Phone: WBC (Bld) [#/Vol] 14.5 10*3/uL 4.4-11.0 [facility] Work Phone: Blood erythrocytes count (nu mber/volume)on 04-27-2022 RBC (Bld) [#/Vol] 4.56 10*6/uL 4.6-6.2 [facility] Work Phone: Blood hemoglobin measurement (mass/volume)on 04-27-2022 Hemoglobin (Bld) [Mass/Vol] 13.4 g/dL 13.0-16.5 [facility] Work Phone: Blood lymphocytes/100 leukoc yteson 04-27-2022 Lymphocytes/100 WBC (Bld) 16.3 % 19-41 [facility] Work Phone: Blood monocytes/100 leukocyt eson 04-27-2022 Monocytes/100 WBC (Bld) 7.6 % 0-10 [facility] Work Phone: Blood platelet mean volumeon 04-27-2022 Platelet mean volume (Bld) [Entitic vol] 9.2 fL 6.2-12.0 [facility] Work Phone: Determination of erythrocyte mean corpuscular volume (MCV)on 04-27-2022 MCV (RBC) [Entitic vol] 91.0 fL 80-94 [facility] Work Phone: Hematocrit Auto (Bld) [Volum e fraction]on 04-27-2022 Hematocrit (Bld) [Volume fraction] 41.5 % 40-54 [facility] Work Phone: Laboratory - Chemistry and C hemistry - challengeon 04-27-2022 CO2 [Moles/Vol] 28.0 mmol/L 21.0-32.0 [facility] Work Phone: Urea nitrogen/Creatinine [Mass ratio] 13.4 mg/mg 10-20 [facility] Work Phone: Laboratory - Hematology and Cell countson 04-27-2022 Erythrocyte distribution width (RBC) [Entitic vol] 45.7 fL 35.1-43.9 [facility] Work Phone: Erythrocyte distribution width (RBC) [Ratio] 13.7 % 11.6-14.6 [facility] Work Phone: Immature granulocytes/100 WBC (Bld) 3.700 % 0.0-0.9 [facility] Work Phone: Comment on above: IG% - Immature Granu locytes (promyelocytes, myelocytes and metamyelocytes) > 1% indicates that a LEFT SHIFT is Present. MCH (RBC) [Entitic mass] 29.4 pg 27.0-32.0 [facility] Work Phone: Nucleated RBC/100 WBC (Bld) [Ratio] 0.1 % 0-5 [facility] Work Phone: MCHC Auto (RBC) [Mass/Vol]on 04-27-2022 MCHC (RBC) [Mass/Vol] 32.3 g/dL 32-36 [facility] Work Phone: No Panel Informationon 04-27 Estimated GFR (MDRD) Amer 44 mL/min >60 [facility] Work Phone: Comment on above: GFR Calc Estimated GFR (MDRD) Non-Af Amer 36 mL/min >60 [facility] Work Phone: Comment on above: Non- GFR Calc [place] Level 0.50 mmol/L 0.60-1.20 [facility] Work Phone: Platelets bldon 04-27-2022 Platelets (Bld) [#/Vol] 243 10*3/uL 150-450 [facility] Work Phone: Serum or plasma albumin you urement (mass/volume)on 04-27-2022 Albumin [Mass/Vol] 2.9 g/dL 3.2-5.0 [place] [facility] Work Phone: Serum or plasma calcium you urement (mass/volume)on 04-27-2022 Calcium [Mass/Vol] 9.3 mg/dL 8.5-10.1 [place] [facility] Work Phone: Serum or plasma creatinine m easurement (mass/volume)on 04-27-2022 Creatinine [Mass/Vol] 2.02 mg/dL 0.70-1.30 [place] [facility] Work Phone: Comment on above: The validity of the calculated GFR & GFRAA in patients over 70 years has not been determined. Clinical correlation is essential. Serum or plasma urea nitroge n measurement (mass/volume)on 04-27-2022 Urea nitrogen [Mass/Vol] 27 mg/dL 7-18 [facility] Work Phone: Serum or plasma uric acid me asurement (mass/volume)on 04-27-2022 Urate [Mass/Vol] 6.5 mg/dL 3.5-7.2 [facility] Work Phone: Comment on above: The drugs N-Acetylcy steine and Metamizole may falsely depress this assay. Urine creatinine measurement (mass/volume)on 04-27-2022 Creatinine (U) [Mass/Vol] 69.70 mg/dL NO RANGE EST. [facility] Work Phone: Urine protein measurement (m ass/volume)on 04-27-2022 Protein (U) [Mass/Vol] 10.2 mg/dL 0.0-11.8 [place] [facility] [facility] Work Phone: Urine protein/creatinine mas s ratioon 04-27-2022 Protein/Creatinine (U) [Mass ratio] 146 mg/g CRE 0-200 [facility] Work Phone: Basophil percentageon 2021 Basophil percentage 4.2 mg/dL 2.5-4.9 [place] [facility] Work Phone: Chloride [Moles/Vol] 107 mmol/L 98-[address] [place] [facility] Work Phone: Glucose [Mass/Vol] 129 mg/dL 74-106 [facility] Work Phone: Comment on above: Fasting Glucose resu lt greater than or equal to 126 mg/dL suggests DIABETES MELLITUS per A.D.A. criteria. Potassium [Moles/Vol] 3.8 mmol/L 3.5-5.1 [facility] Work Phone: Sodium [Moles/Vol] 140 mmol/L 136-145 [facility] Work Phone: Basophil percentage 25-50 SEEN /hpf 0-5 [facility] Work Phone: Bilirubin Test strip Ql (U)o n 04-22-2022 Bilirubin Ql (U) Negative Negative [facility] Work Phone: Culture, urineon 04-22-2022 Bacteria identified Cx Nom (U) Positive [facility] Work Phone: Ketones Test strip Ql (U)on 04-22-2022 Ketones Ql (U) Negative Negative [facility] Work Phone: Laboratory - Chemistry and C hemistry - challengeon 04-22-2022 CO2 [Moles/Vol] 27.0 mmol/L 21.0-32.0 [facility] Work Phone: Urea nitrogen/Creatinine [Mass ratio] 8.2 mg/mg 10-20 [facility] Work Phone: Mucus LM Ql (Urine sed)on Mucus Ql (Urine sed) 0 SEEN /hpf [facility] Work Phone: Nitrite Test strip Ql (U)on 04-22-2022 Nitrite Ql (U) Negative Negative [facility] Work Phone: No Panel Informationon 04-22 Estimated GFR (MDRD) Amer 53 mL/min >60 [facility] Work Phone: Comment on above: GFR Calc Estimated GFR (MDRD) Non-Af Amer 44 mL/min >60 [facility] Work Phone: Comment on above: Non- GFR Calc Protein Test strip Ql (U)on 04-22-2022 Protein Ql (U) 15 mg/dl Negative [facility] Work Phone: Serum or plasma albumin you urement (mass/volume)on 04-22-2022 Albumin [Mass/Vol] 2.6 g/dL 3.2-5.0 [facility] Work Phone: Serum or plasma calcium you urement (mass/volume)on 04-22-2022 Calcium [Mass/Vol] 9.1 mg/dL 8.5-10.1 [facility] Work Phone: Serum or plasma creatinine m easurement (mass/volume)on 04-22-2022 Creatinine [Mass/Vol] 1.71 mg/dL 0.70-1.30 [facility] Work Phone: Comment on above: The validity of the calculated GFR & GFRAA in patients over 70 years has not been determined. Clinical correlation is essential. Serum or plasma urea nitroge n measurement (mass/volume)on 04-22-2022 Urea nitrogen [Mass/Vol] 14 mg/dL 7-18 [facility] Work Phone: Squamous epithelial cells de tection in urine sediment by light microscopyon 04-22-2022 Epithelial cells.squamous LM Ql (Urine sed) 0-5 SEEN /hpf 0-5 [facility] Work Phone: Urine blood detectionon RBC Ql (U) 10 /ul Negative [facility] Work Phone: RBC Ql (U) 0-5 SEEN /hpf 0-5 [facility] Work Phone: Urine clarityon 04-22-2022 Clarity (U) Clear Clear [facility] Work Phone: Urine color determinationon 04-22-2022 Color (U) Yellow Yellow [facility] Work Phone: Urine creatinine measurement (mass/volume)on 04-22-2022 Creatinine (U) [Mass/Vol] 171.00 mg/dL NO RANGE EST. [facility] Work Phone: Urine glucose detectionon Glucose Ql (U) Normal mg/dl Normal [facility] Work Phone: Urine leukocyte esterase det ection by dipstickon 04-22-2022 Leukocyte esterase Test strip Ql (U) 500 /ul Negative [facility] Work Phone: Urine pHon 04-22-2022 pH (U) 6.0 [pH] 5.0 - 8.0 [facility] Work Phone: Urine protein measurement (m ass/volume)on 04-22-2022 Protein (U) [Mass/Vol] 30.4 mg/dL 0.0-11.8 [facility] Work Phone: Urine protein/creatinine mas s ratioon 04-22-2022 Protein/Creatinine (U) [Mass ratio] 178 mg/g CRE 0-200 [facility] Work Phone: Urine sediment bacteria coun t by microscopy (number/high power field)on 04-22-2022 Bacteria LM.HPF (Urine sed) [#/Area] 0 /[HPF] None Seen [facility] Work Phone: Urine specific gravity measu rementon 04-22-2022 Specific gravity (U) [Rel density] 1.015 1.002-1.030 [facility] Work Phone: Urobilinogen Auto test strip Ql (U)on 04-22-2022 Urobilinogen Ql (U) Normal mg/dl Normal [facility] Work Phone: Absolute lymphocyte counton 04-21-2022 Lymphocytes Auto (Unsp spec) [#/Vol] 2.19 10*3/uL 0.83-4.51 [facility] Work Phone: Basophil percentageon 2021 Basophils/100 WBC (Bld) 0.6 % 0-1 [facility] Work Phone: Eosinophils/100 WBC (Bld) 2.4 % 0-5 [facility] Work Phone: Neutrophils (Bld) [#/Vol] 5.3 10*3/uL 2.0-7.7 [facility] Work Phone: Neutrophils/100 WBC (Bld) 60.5 % 47-70 [facility] Work Phone: WBC (Bld) [#/Vol] 8.8 10*3/uL 4.4-11.0 [facility] Work Phone: Blood erythrocytes count (nu mber/volume)on 04-21-2022 RBC (Bld) [#/Vol] 4.29 10*6/uL 4.6-6.2 [facility] Work Phone: Blood hemoglobin measurement (mass/volume)on 04-21-2022 Hemoglobin (Bld) [Mass/Vol] 12.9 g/dL 13.0-16.5 [facility] Work Phone: Blood lymphocytes/100 leukoc yteson 04-21-2022 Lymphocytes/100 WBC (Bld) 24.9 % 19-41 [facility] Work Phone: Blood monocytes/100 leukocyt eson 04-21-2022 Monocytes/100 WBC (Bld) 11.4 % 0-10 [facility] Work Phone: Blood platelet mean volumeon 04-21-2022 Platelet mean volume (Bld) [Entitic vol] 9.5 fL 6.2-12.0 [facility] Work Phone: Determination of erythrocyte mean corpuscular volume (MCV)on 04-21-2022 MCV (RBC) [Entitic vol] 92.1 fL 80-94 [facility] Work Phone: Hematocrit Auto (Bld) [Volum e fraction]on 04-21-2022 Hematocrit (Bld) [Volume fraction] 39.5 % 40-54 [facility] Work Phone: Laboratory - Hematology and Cell countson 06-08-2022 Erythrocyte distribution width (RBC) [Entitic vol] 45.9 fL 35.1-43.9 [facility] Work Phone: Erythrocyte distribution width (RBC) [Ratio] 13.5 % 11.6-14.6 [facility] Work Phone: Immature granulocytes/100 WBC (Bld) 0.200 % 0.0-0.9 [facility] Work Phone: Comment on above: IG% - Immature Granu locytes (promyelocytes, myelocytes and metamyelocytes) > 1% indicates that a LEFT SHIFT is Present. MCH (RBC) [Entitic mass] 30.1 pg 27.0-32.0 [facility] Work Phone: Nucleated RBC/100 WBC (Bld) [Ratio] 0 % 0-5 [facility] Work Phone: MCHC Auto (RBC) [Mass/Vol]on 04-21-2022 MCHC (RBC) [Mass/Vol] 32.7 g/dL 32-36 [facility] Work Phone: Platelets bldon 04-21-2022 Platelets (Bld) [#/Vol] 199 10*3/uL 150-450 [facility] Work Phone: Serum or plasma uric acid me asurement (mass/volume)on 04-21-2022 Urate [Mass/Vol] 6.2 mg/dL 3.5-7.2 [facility] Work Phone: Comment on above: The drugs N-Acetylcy steine and Metamizole may falsely depress this assay. Laboratory - Microbiology an d Antimicrobial susceptibilityon 04-06-2022 SARS-CoV-2 (COVID-19) RNA AMANDO+probe Ql (Unsp spec) Detected Not Detect [facility] Work Phone: Comment on above: Normal Reference Ran ge: Not DetectedMethod:(RT-PCR) real-time reverse transcriptase PCRLuminex MORGAN Instrument*The Food and Drug Administration (FDA) has issued an Emergency Use Authorization (EAU) for the MORGAN SARS-CoV-2 Assay for the rapid detection of the virus that causes COVID-19. This test has been validated, but the [facility] review of this validation is [...] Auto (Unsp spec) [#/Vol] 1.96 10*3/uL 0.83-4.51 [facility] Work Phone: Basophil percentageon 2021 Basophils/100 WBC (Bld) 0.6 % 0-1 [facility] Work Phone: Chloride [Moles/Vol] 103 mmol/L 98-107 [facility] Work Phone: Eosinophils/100 WBC (Bld) 0.6 % 0-5 [facility] Work Phone: Glucose [Mass/Vol] 133 mg/dL 74-106 [facility] Work Phone: Comment on above: Fasting Glucose resu lt greater than or equal to 126 mg/dL suggests DIABETES MELLITUS per A.D.A. criteria. Neutrophils (Bld) [#/Vol] 7.3 10*3/uL 2.0-7.7 [facility] Work Phone: Neutrophils/100 WBC (Bld) 64.6 % 47-70 [facility] Work Phone: Potassium [Moles/Vol] 3.5 mmol/L 3.5-5.1 [facility] Work Phone: Sodium [Moles/Vol] 138 mmol/L 136-145 [facility] Work Phone: WBC (Bld) [#/Vol] 11.3 10*3/uL 4.4-11.0 [facility] Work Phone: Blood erythrocytes count (nu mber/volume)on 04-02-2022 RBC (Bld) [#/Vol] 4.81 10*6/uL 4.6-6.2 [facility] Work Phone: Blood hemoglobin measurement (mass/volume)on 04-02-2022 Hemoglobin (Bld) [Mass/Vol] 14.4 g/dL 13.0-16.5 [facility] Work Phone: Blood lymphocytes/100 leukoc yteson 04-02-2022 Lymphocytes/100 WBC (Bld) 17.3 % 19-41 [facility] Work Phone: Blood monocytes/100 leukocyt eson 04-02-2022 Monocytes/100 WBC (Bld) 15.7 % 0-10 [facility] Work Phone: Blood platelet mean volumeon 04-02-2022 Platelet mean volume (Bld) [Entitic vol] 10.0 fL 6.2-12.0 [facility] Work Phone: Determination of erythrocyte mean corpuscular volume (MCV)on 04-02-2022 MCV (RBC) [Entitic vol] 91.7 fL 80-94 [facility] Work Phone: Hematocrit Auto (Bld) [Volum e fraction]on 04-02-2022 Hematocrit (Bld) [Volume fraction] 44.1 % 40-54 [facility] Work Phone: Laboratory - Chemistry and C hemistry - challengeon 04-02-2022 CO2 [Moles/Vol] 26.0 mmol/L 21.0-32.0 [facility] Work Phone: Urea nitrogen/Creatinine [Mass ratio] 14.1 mg/mg 09-02 [facility] Work Phone: Laboratory - Hematology and Cell countson 04-02-2022 Erythrocyte distribution width (RBC) [Entitic vol] 47.8 fL 35.1-43.9 [facility] Work Phone: Erythrocyte distribution width (RBC) [Ratio] 14.0 % 11.6-14.6 [facility] Work Phone: Immature granulocytes/100 WBC (Bld) 1.200 % 0.0-0.9 [facility] Work Phone: Comment on above: IG% - Immature Granu locytes (promyelocytes, myelocytes and metamyelocytes) > 1% indicates that a LEFT SHIFT is Present. MCH (RBC) [Entitic mass] 29.9 pg 27.0-32.0 [facility] Work Phone: Nucleated RBC/100 WBC (Bld) [Ratio] 0 % 0-5 [facility] Work Phone: MCHC Auto (RBC) [Mass/Vol]on 04-02-2022 MCHC (RBC) [Mass/Vol] 32.7 g/dL 32-36 [facility] Work Phone: No Panel Informationon 04-02 Estimated GFR (MDRD) Amer 51 mL/min >60 [facility] Work Phone: Comment on above: GFR Calc Estimated GFR (MDRD) Non-Af Amer 42 mL/min >60 [facility] Work Phone: Comment on above: Non- GFR Calc Platelets bldon 04-02-2022 Platelets (Bld) [#/Vol] 160 10*3/uL 150-450 [facility] Work Phone: Review by pathologiston 03-15 Pathologist review Crispin (Unsp spec) [Interp] Reviewed [facility] Work Phone: Comment on above: Previous reported re sult: Bonnie kincaid Edited by: RGOOD on 04/06/22:912Leukocytosis. Tuan Servin M.D. 04/06/22 AMENDED REPORT 04/06/22912 PATH REV previously reported as: Bonnie kincaid Serum or plasma calcium you urement (mass/volume)on 04-02-2022 Calcium [Mass/Vol] 9.0 mg/dL 8.5-10.1 [facility] Work Phone: Serum or plasma creatinine m easurement (mass/volume)on 04-02-2022 Creatinine [Mass/Vol] 1.77 mg/dL 0.70-1.30 [facility] Work Phone: Comment on above: The validity of the calculated GFR & GFRAA in patients over 70 years has not been determined. Clinical correlation is essential. Serum or plasma urea nitroge n measurement (mass/volume)on 04-02-2022 Urea nitrogen [Mass/Vol] 25 mg/dL 7-18 [facility] Work Phone: Thin prep Papanicolaou smear with manual screeningon 04-02-2022 Thin prep Papanicolaou smear with manual screening 9 5-15 [facility] Work Phone: Absolute lymphocyte counton 03-25-2022 Lymphocytes Auto (Unsp spec) [#/Vol] 2.80 10*3/uL 0.83-4.51 [facility] Work Phone: Basophil percentageon 2021 Basophil percentage 4.0 mg/dL 2.5-4.9 [facility] Work Phone: Basophils/100 WBC (Bld) 0.6 % 0-1 [facility] Work Phone: Chloride [Moles/Vol] 106 mmol/L 98-107 [facility] Work Phone: Eosinophils/100 WBC (Bld) 1.7 % 0-5 [facility] Work Phone: Glucose [Mass/Vol] 164 mg/dL 74-106 [facility] Work Phone: Comment on above: Fasting Glucose resu lt greater than or equal to 126 mg/dL suggests DIABETES MELLITUS per A.D.A. criteria. Neutrophils (Bld) [#/Vol] 5.6 10*3/uL 2.0-7.7 [facility] Work Phone: Neutrophils/100 WBC (Bld) 56.9 % 47-70 [facility] Work Phone: Potassium [Moles/Vol] 3.8 mmol/L 3.5-5.1 [place] [facility] [place]: [phone] Sodium [Moles/Vol] 139 mmol/L 136-145 [facility] Work Phone: WBC (Bld) [#/Vol] 9.8 10*3/uL 4.4-11.0 [facility] Work Phone: Basophil percentage 0-5 SEEN /hpf 0-5 [place] [facility] Work [place]: Bilirubin Test strip Ql (U)o n 03-25-2022 Bilirubin Ql (U) Negative Negative [facility] Work Phone: Blood erythrocytes count (nu mber/volume)on 03-25-2022 RBC (Bld) [#/Vol] 4.77 10*6/uL 4.6-6.2 [facility] Work Phone: Blood hemoglobin measurement (mass/volume)on 03-25-2022 Hemoglobin (Bld) [Mass/Vol] 14.1 g/dL 13.0-16.5 [facility] Work Phone: Blood lymphocytes/100 leukoc yteson 03-25-2022 Lymphocytes/100 WBC (Bld) 28.7 % 19-41 [facility] Work Phone: Blood monocytes/100 leukocyt eson 03-25-2022 Monocytes/100 WBC (Bld) 9.2 % 0-10 [facility] Work Phone: [phone] Blood platelet mean volumeon 03-25-2022 Platelet mean volume (Bld) [Entitic vol] 9.3 fL 6.2-12.0 [facility] Work Phone: Determination of erythrocyte mean corpuscular volume (MCV)on 03-25-2022 MCV (RBC) [Entitic vol] 91.4 fL 80-94 [facility] Work Phone: Hematocrit Auto (Bld) [Volum e fraction]on 03-25-2022 Hematocrit (Bld) [Volume fraction] 43.6 % 40-54 [facility] Work Phone: Ketones Test strip Ql (U)on 03-25-2022 Ketones Ql (U) Negative Negative [facility] Work Phone: Laboratory - Chemistry and C hemistry - challengeon 03-25-2022 CO2 [Moles/Vol] 26.0 mmol/L 21.0-32.0 [facility] Work Phone: Urea nitrogen/Creatinine [Mass ratio] 15.4 mg/mg 10-20 [facility] Work Phone: Laboratory - Hematology and Cell countson 03-25-2022 Erythrocyte distribution width (RBC) [Entitic vol] 45.9 fL 35.1-43.9 [facility] Work Phone: Erythrocyte distribution width (RBC) [Ratio] 13.6 % 11.6-14.6 [facility] Work Phone: Immature granulocytes/100 WBC (Bld) 2.900 % 0.0-0.9 [facility] Work Phone: Comment on above: IG% - Immature Granu locytes (promyelocytes, myelocytes and metamyelocytes) > 1% indicates that a LEFT SHIFT is Present. MCH (RBC) [Entitic mass] 29.6 pg 27.0-32.0 [facility] Work Phone: Nucleated RBC/100 WBC (Bld) [Ratio] 0 % 0-5 [facility] Work Phone: MCHC Auto (RBC) [Mass/Vol]on 03-25-2022 MCHC (RBC) [Mass/Vol] 32.3 g/dL 32-36 [facility] Work Phone: Mucus LM Ql (Urine sed)on Mucus Ql (Urine sed) 0 SEEN /hpf [facility] Work Phone: Nitrite Test strip Ql (U)on 03-25-2022 Nitrite Ql (U) Negative Negative [facility] Work Phone: No Panel Informationon 03-25 Estimated GFR (MDRD) Amer 52 mL/min >60 [facility] Work Phone: Comment on above: GFR Calc Estimated GFR (MDRD) Non-Af Amer 43 mL/min >60 [facility] Work Phone: Comment on above: Non- GFR Calc Platelets bldon 03-25-2022 Platelets (Bld) [#/Vol] 276 10*3/uL 150-450 [facility] Work Phone: Protein Test strip Ql (U)on 03-25-2022 Protein Ql (U) Negative Negative [facility] Work Phone: Serum or plasma albumin you urement (mass/volume)on 03-25-2022 Albumin [Mass/Vol] 2.9 g/dL 3.2-5.0 [facility] Work Phone: Serum or plasma calcium you urement (mass/volume)on 03-25-2022 Calcium [Mass/Vol] 8.7 mg/dL 8.5-10.1 [facility] Work Phone: Serum or plasma creatinine m easurement (mass/volume)on 03-25-2022 Creatinine [Mass/Vol] 1.75 mg/dL 0.70-1.30 [facility] Work Phone: Comment on above: The validity of the calculated GFR & GFRAA in patients over 70 years has not been determined. Clinical correlation is essential. Serum or plasma urea nitroge n measurement (mass/volume)on 03-25-2022 Urea nitrogen [Mass/Vol] 27 mg/dL 7-18 [facility] Work Phone: Squamous epithelial cells de tection in urine sediment by light microscopyon 03-25-2022 Epithelial cells.squamous LM Ql (Urine sed) 0-5 SEEN /hpf 0-5 [facility] Work Phone: Urine blood detectionon 03-14 RBC Ql (U) Negative Negative [facility] Work Phone: RBC Ql (U) 0 SEEN /hpf 0-5 [facility] Work Phone: Urine clarityon 03-25-2022 Clarity (U) Sl. Cloudy Clear [facility] Work Phone: Urine color determinationon 03-25-2022 Color (U) Yellow Yellow [facility] Work Phone: Urine creatinine measurement (mass/volume)on 03-25-2022 Creatinine (U) [Mass/Vol] 90.50 mg/dL NO RANGE EST. [facility] Work Phone: Urine glucose detectionon Glucose Ql (U) Normal mg/dl Normal [facility] Work Phone: Urine leukocyte esterase det ection by dipstickon 03-25-2022 Leukocyte esterase Test strip Ql (U) 25 /ul Negative [facility] Work Phone: Urine pHon 03-25-2022 pH (U) 6.0 [pH] 5.0 - 8.0 [facility] Work Phone: Urine protein measurement (m ass/volume)on 03-25-2022 Protein (U) [Mass/Vol] 15.8 mg/dL 0.0-11.8 [facility] Work Phone: Urine protein/creatinine mas s ratioon 03-25-2022 Protein/Creatinine (U) [Mass ratio] 175 mg/g CRE 0-200 [facility] Work Phone: Urine sediment bacteria coun t by microscopy (number/high power field)on 03-25-2022 Bacteria LM.HPF (Urine sed) [#/Area] 0 /[HPF] None Seen [facility] Work Phone: Urine specific gravity measu rementon 03-25-2022 Specific gravity (U) [Rel density] 1.015 1.002-1.030 [facility] Work Phone: Urobilinogen Auto test strip Ql (U)on 03-25-2022 Urobilinogen Ql (U) Normal mg/dl Normal [facility] Work Phone: Serum or plasma uric acid me asurement (mass/volume)on 03-19-2022 Urate [Mass/Vol] 8.3 mg/dL 3.5-7.2 [facility] Work Phone: Comment on above: The drugs N-Acetylcy steine and Metamizole may falsely depress this assay. Absolute lymphocyte counton 02-25-2022 Lymphocytes Auto (Unsp spec) [#/Vol] 2.27 10*3/uL 0.83-4.51 [facility] Work Phone: Basophil percentageon 2021 Basophil percentage 0 SEEN /hpf 0-5 [facility] Work Phone: [phone] Basophil percentage 4.3 mg/dL 2.5-4.9 [facility] Work Phone: Basophils/100 WBC (Bld) 0.3 % 0-1 [facility] Work Phone: Chloride [Moles/Vol] 102 mmol/L 98-107 [facility] Work Phone: Eosinophils/100 WBC (Bld) 0.2 % 0-5 [facility] Work Phone: Glucose [Mass/Vol] 107 mg/dL 74-106 [facility] Work Phone: Comment on above: Fasting Glucose resu lt from 100 to 125 mg/dL suggests IMPAIRED HOMEOSTASIS per A.D.A. criteria. Neutrophils (Bld) [#/Vol] 7.8 10*3/uL 2.0-7.7 [facility] Work Phone: Neutrophils/100 WBC (Bld) 67.9 % 47-70 [facility] Work Phone: Potassium [Moles/Vol] 4.1 mmol/L 3.5-5.1 [facility] Work Phone: Comment on above: Moderate Hemolysis, Result may be falsely increased. Sodium [Moles/Vol] 137 mmol/L 136-145 [facility] Work Phone: WBC (Bld) [#/Vol] 11.6 10*3/uL 4.4-11.0 [facility] Work Phone: Bilirubin Test strip Ql (U)o n 02-25-2022 Bilirubin Ql (U) Negative Negative [facility] Work Phone: Blood erythrocytes count (nu mber/volume)on 02-25-2022 RBC (Bld) [#/Vol] 4.09 10*6/uL 4.6-6.2 [facility] Work Phone: Blood hemoglobin measurement (mass/volume)on 02-25-2022 Hemoglobin (Bld) [Mass/Vol] 12.0 g/dL 13.0-16.5 [facility] Work Phone: Blood lymphocytes/100 leukoc yteson 02-25-2022 Lymphocytes/100 WBC (Bld) 19.7 % 19-41 [facility] Work Phone: Blood monocytes/100 leukocyt eson 02-25-2022 Monocytes/100 WBC (Bld) 9.0 % 0-10 [facility] Work Phone: Blood platelet adequacy dete ction by light microscopyon 02-25-2022 Platelets LM Ql (Bld) ADEQUATE ADEQ [facility] Work Phone: Blood platelet mean volumeon 02-25-2022 Platelet mean volume (Bld) [Entitic vol] 9.9 fL 6.2-12.0 [facility] Work Phone: Culture, urineon 02-25-2022 Bacteria identified Cx Nom (U) Culture exhibits no growth. [facility] Work Phone: Determination of erythrocyte mean corpuscular volume (MCV)on 02-25-2022 MCV (RBC) [Entitic vol] 90.2 fL 80-94 [facility] Work Phone: Hematocrit Auto (Bld) [Volum e fraction]on 02-25-2022 Hematocrit (Bld) [Volume fraction] 36.9 % 40-54 [facility] Work Phone: Ketones Test strip Ql (U)on 02-25-2022 Ketones Ql (U) Negative Negative [facility] Work Phone: Laboratory - Chemistry and C hemistry - challengeon 02-25-2022 CO2 [Moles/Vol] 26.0 mmol/L 21.0-32.0 [facility] Work Phone: Urea nitrogen/Creatinine [Mass ratio] 18.6 mg/mg 10-20 [facility] Work Phone: Laboratory - Hematology and Cell countson 02-25-2022 Erythrocyte distribution width (RBC) [Entitic vol] 46.8 fL 35.1-43.9 [facility] Work Phone: Erythrocyte distribution width (RBC) [Ratio] 14.1 % 11.6-14.6 [facility] Work Phone: Immature granulocytes/100 WBC (Bld) 2.900 % 0.0-0.9 [facility] Work Phone: Comment on above: IG% - Immature Granu locytes (promyelocytes, myelocytes and metamyelocytes) > 1% indicates that a LEFT SHIFT is Present. MCH (RBC) [Entitic mass] 29.3 pg 27.0-32.0 [facility] Work Phone: Nucleated RBC/100 WBC (Bld) [Ratio] 0 % 0-5 [facility] Work Phone: MCHC Auto (RBC) [Mass/Vol]on 02-25-2022 MCHC (RBC) [Mass/Vol] 32.5 g/dL 32-36 [facility] Work Phone: Mucus LM Ql (Urine sed)on Mucus Ql (Urine sed) 0 SEEN /hpf [facility] Work Phone: Nitrite Test strip Ql (U)on 02-25-2022 Nitrite Ql (U) Negative Negative [facility] Work Phone: No Panel Informationon 02-25 Estimated GFR (MDRD) Amer 43 mL/min >60 [facility] Work Phone: Comment on above: GFR Calc Estimated GFR (MDRD) Non-Af Amer 36 mL/min >60 [facility] Work Phone: Comment on above: Non- GFR Calc [place] Level 0.50 mmol/L 0.60-1.20 [facility] Work Phone: Platelets bldon 02-25-2022 Platelets (Bld) [#/Vol] TNP [facility] Work Phone: Comment on above: Test not performedPl ease note: For this sample, a platelet estimate is provided rather than a platelet count due to platelet clumping. Other parameters associated with this sample are not affected by platelet clumping. If a more accurate platelet count is required, a redraw of the patient will be necessary.Previous reported result: 202 [id number] by: RUPERTO on 02/25/22:1032 AMENDED REPORT 02/25/22 1032 PLT previously reported as: 202 K/mm3 Protein Test strip Ql (U)on 02-25-2022 Protein Ql (U) Negative Negative [facility] Work Phone: Serum or plasma albumin you urement (mass/volume)on 02-25-2022 Albumin [Mass/Vol] 3.2 g/dL 3.2-5.0 [facility] Work Phone: Serum or plasma calcium you urement (mass/volume)on 02-25-2022 Calcium [Mass/Vol] 8.4 mg/dL 8.5-10.1 [facility] Work Phone: Serum or plasma creatinine m easurement (mass/volume)on 02-25-2022 Creatinine [Mass/Vol] 2.04 mg/dL 0.70-1.30 [facility] Work Phone: Comment on above: The validity of the calculated GFR & GFRAA in patients over 70 years has not been determined. Clinical correlation is essential. Serum or plasma urea nitroge n measurement (mass/volume)on 02-25-2022 Urea nitrogen [Mass/Vol] 38 mg/dL 7-18 [facility] Work Phone: Serum or plasma uric acid me asurement (mass/volume)on 02-25-2022 Urate [Mass/Vol] 7.8 mg/dL 3.5-7.2 [facility] Work Phone: Comment on above: The drugs N-Acetylcy steine and Metamizole may falsely depress this assay. Squamous epithelial cells de tection in urine sediment by light microscopyon 02-25-2022 Epithelial cells.squamous LM Ql (Urine sed) 0 SEEN /hpf 0-5 [facility] Work Phone: Urine blood detectionon 02-12 RBC Ql (U) Negative Negative [facility] Work Phone: RBC Ql (U) 0 SEEN /hpf 0-5 [facility] Work Phone: Urine clarityon 02-25-2022 Clarity (U) Clear Clear [facility] Work Phone: Urine color determinationon 02-25-2022 Color (U) Yellow Yellow [facility] Work Phone: Urine creatinine measurement (mass/volume)on 02-25-2022 Creatinine (U) [Mass/Vol] 82.80 mg/dL NO RANGE EST. [facility] Work Phone: Urine glucose detectionon Glucose Ql (U) Normal mg/dl Normal [facility] Work Phone: Urine leukocyte esterase det ection by dipstickon 02-25-2022 Leukocyte esterase Test strip Ql (U) 25 /ul Negative [facility] Work Phone: Urine pHon 02-25-2022 pH (U) 6.0 [pH] 5.0 - 8.0 [facility] Work Phone: Urine protein measurement (m ass/volume)on 02-25-2022 Protein (U) [Mass/Vol] 13.8 mg/dL 0.0-11.8 [facility] Work Phone: Urine protein/creatinine mas s ratioon 02-25-2022 Protein/Creatinine (U) [Mass ratio] 167 mg/g CRE 0-200 [facility] Work Phone: Urine sediment bacteria coun t by microscopy (number/high power field)on 02-25-2022 Bacteria LM.HPF (Urine sed) [#/Area] 0 /[HPF] None Seen [facility] Work Phone: Urine specific gravity measu rementon 02-25-2022 Specific gravity (U) [Rel density] 1.020 1.002-1.030 [facility] Work Phone: Urobilinogen Auto test strip Ql (U)on 02-25-2022 Urobilinogen Ql (U) Normal mg/dl Normal [facility] Work Phone: Basophil percentageon 2021 Chloride [Moles/Vol] 110 mmol/L 98-107 [facility] Work Phone: Glucose [Mass/Vol] 125 mg/dL 74-106 [facility] Work Phone: Comment on above: Fasting Glucose resu lt from 100 to 125 mg/dL suggests IMPAIRED HOMEOSTASIS per A.D.A. criteria. Potassium [Moles/Vol] 4.1 mmol/L 3.5-5.1 [facility] Work Phone: Sodium [Moles/Vol] 139 mmol/L 136-145 [facility] Work Phone: Erythrocyte sedimentation ra meredith 02-18-2022 ESR (Bld) [Velocity] 12 mm/h 0-20 [facility] Work Phone: Laboratory - Chemistry and C hemistry - challengeon 02-18-2022 CO2 [Moles/Vol] 24.0 mmol/L 21.0-32.0 [facility] Work Phone: Urea nitrogen/Creatinine [Mass ratio] 11.8 mg/mg 10-20 [facility] Work Phone: No Panel Informationon 02-18 Estimated GFR (MDRD) Amer 48 mL/min >60 [facility] Work Phone: Comment on above: GFR Calc Estimated GFR (MDRD) Non-Af Amer 40 mL/min >60 [facility] Work Phone: Comment on above: Non- GFR Calc Serum or plasma calcium you urement (mass/volume)on 02-18-2022 Calcium [Mass/Vol] 8.7 mg/dL 8.5-10.1 [facility] Work Phone: Serum or plasma creatinine m easurement (mass/volume)on 02-18-2022 Creatinine [Mass/Vol] 1.86 mg/dL 0.70-1.30 [facility] Work Phone: Comment on above: The validity of the calculated GFR & GFRAA in patients over 70 years has not been determined. Clinical correlation is essential. Serum or plasma urea nitroge n measurement (mass/volume)on 02-18-2022 Urea nitrogen [Mass/Vol] 22 mg/dL 7-18 [facility] Work Phone: Serum or plasma uric acid me asurement (mass/volume)on 02-18-2022 Urate [Mass/Vol] 7.2 mg/dL 3.5-7.2 [facility] Work Phone: Comment on above: The drugs N-Acetylcy steine and Metamizole may falsely depress this assay. Thin prep Papanicolaou smear with manual screeningon 02-18-2022 Thin prep Papanicolaou smear with manual screening 5 5-15 [facility] Work Phone: Absolute lymphocyte counton 01-28-2022 Lymphocytes Auto (Unsp spec) [#/Vol] 1.90 10*3/uL 0.83-4.51 [facility] Work Phone: Basophil percentageon 2021 Basophil percentage 0 SEEN /hpf 0-5 [facility] Work Phone: Basophil percentage 2.7 mg/dL 2.5-4.9 [facility] Work Phone: Basophils/100 WBC (Bld) 0.5 % 0-1 [facility] Work Phone: Chloride [Moles/Vol] 110 mmol/L 98-107 [facility] Work [facility]: Eosinophils/100 WBC (Bld) 0.4 % 0-5 [facility] Work Phone: Glucose [Mass/Vol] 129 mg/dL 74-106 [facility] Work Phone: Comment on above: Fasting Glucose resu lt greater than or equal to 126 mg/dL suggests DIABETES MELLITUS per A.D.A. criteria. Neutrophils (Bld) [#/Vol] 8.0 10*3/uL 2.0-7.7 [facility] Work Phone: Neutrophils/100 WBC (Bld) 70.6 % 47-70 [facility] Work Phone: Potassium [Moles/Vol] 3.8 mmol/L 3.5-5.1 [facility] Work Phone: Sodium [Moles/Vol] 141 mmol/L 136-145 [facility] Work Phone: WBC (Bld) [#/Vol] 11.3 10*3/uL 4.4-11.0 [facility] Work Phone: Bilirubin Test strip Ql (U)o n 01-28-2022 Bilirubin Ql (U) Negative Negative [facility] Work Phone: Blood erythrocytes count (nu mber/volume)on 01-28-2022 RBC (Bld) [#/Vol] 4.23 10*6/uL 4.6-6.2 [facility] Work Phone: Blood hemoglobin measurement (mass/volume)on 01-28-2022 Hemoglobin (Bld) [Mass/Vol] 12.6 g/dL 13.0-16.5 [facility] Work Phone: Blood lymphocytes/100 leukoc yteson 01-28-2022 Lymphocytes/100 WBC (Bld) 16.8 % 19-41 [facility] Work Phone: Blood monocytes/100 leukocyt eson 01-28-2022 Monocytes/100 WBC (Bld) 10.0 % 0-10 [facility] Work Phone: Blood platelet mean volumeon 01-28-2022 Platelet mean volume (Bld) [Entitic vol] 9.3 fL 6.2-12.0 [facility] Work Phone: Determination of erythrocyte mean corpuscular volume (MCV)on 01-28-2022 MCV (RBC) [Entitic vol] 91.3 fL 80-94 [facility] Work Phone: Hematocrit Auto (Bld) [Volum e fraction]on 01-28-2022 Hematocrit (Bld) [Volume fraction] 38.6 % 40-54 [facility] Work Phone: Ketones Test strip Ql (U)on 01-28-2022 Ketones Ql (U) Negative Negative [facility] Work Phone: Laboratory - Chemistry and C hemistry - challengeon 01-28-2022 CO2 [Moles/Vol] 25.0 mmol/L 21.0-32.0 [facility] Work Phone: Urea nitrogen/Creatinine [Mass ratio] 14.7 mg/mg 10-20 [facility] Work Phone: Laboratory - Hematology and Cell countson 01-28-2022 Erythrocyte distribution width (RBC) [Entitic vol] 45.7 fL 35.1-43.9 [facility] Work Phone: Erythrocyte distribution width (RBC) [Ratio] 13.7 % 11.6-14.6 [facility] Work Phone: Immature granulocytes/100 WBC (Bld) 1.700 % 0.0-0.9 [facility] Work Phone: Comment on above: IG% - Immature Granu locytes (promyelocytes, myelocytes and metamyelocytes) > 1% indicates that a LEFT SHIFT is Present. MCH (RBC) [Entitic mass] 29.8 pg 27.0-32.0 [facility] Work Phone: Nucleated RBC/100 WBC (Bld) [Ratio] 0 % 0-5 [facility] Work Phone: MCHC Auto (RBC) [Mass/Vol]on 01-28-2022 MCHC (RBC) [Mass/Vol] 32.6 g/dL 32-36 [facility] Work Phone: Mucus LM Ql (Urine sed)on Mucus Ql (Urine sed) 0 SEEN /hpf [facility] Work Phone: Nitrite Test strip Ql (U)on 01-28-2022 Nitrite Ql (U) Negative Negative [facility] Work Phone: No Panel Informationon 01-28 Urine Microalbumin/Creatinine Ratio 77.0 mg/g CRE <30 [facility] Work Phone: Estimated GFR (MDRD) Amer 56 mL/min >60 [facility] Work Phone: Comment on above: GFR Calc Estimated GFR (MDRD) Non-Af Amer 46 mL/min >60 [facility] Work Phone: Comment on above: Non- GFR Calc Platelets bldon 01-28-2022 Platelets (Bld) [#/Vol] 240 10*3/uL 150-450 [facility] Work Phone: Protein Test strip Ql (U)on 01-28-2022 Protein Ql (U) Negative Negative [facility] Work Phone: Serum or plasma albumin you urement (mass/volume)on 01-28-2022 Albumin [Mass/Vol] 3.2 g/dL 3.2-5.0 [facility] Work Phone: Serum or plasma calcium you urement (mass/volume)on 01-28-2022 Calcium [Mass/Vol] 8.4 mg/dL 8.5-10.1 [facility] Work Phone: Serum or plasma creatinine m easurement (mass/volume)on 01-28-2022 Creatinine [Mass/Vol] 1.63 mg/dL 0.70-1.30 [facility] Work Phone: Comment on above: The validity of the calculated GFR & GFRAA in patients over 70 years has not been determined. Clinical correlation is essential. Serum or plasma urea nitroge n measurement (mass/volume)on 01-28-2022 Urea nitrogen [Mass/Vol] 24 mg/dL 7-18 [facility] Work Phone: Squamous epithelial cells de tection in urine sediment by light microscopyon 01-28-2022 Epithelial cells.squamous LM Ql (Urine sed) 0-5 SEEN /hpf 0-5 [facility] Work Phone: Thin prep Papanicolaou smear with manual screeningon 01-28-2022 Thin prep Papanicolaou smear with manual screening 28.5 mg/L NO RANGE EST. [facility] Work Phone: Urine blood detectionon 01-12 RBC Ql (U) Negative Negative [facility] Work Phone: RBC Ql (U) 0 SEEN /hpf 0-5 [facility] Work Phone: Urine clarityon 01-28-2022 Clarity (U) Sl. Cloudy Clear [facility] Work Phone: Urine color determinationon 01-28-2022 Color (U) Yellow Yellow [facility] Work Phone: Urine creatinine measurement (mass/volume)on 01-28-2022 Creatinine (U) [Mass/Vol] 37.00 mg/dL NO RANGE EST. [facility] Work Phone: Urine glucose detectionon Glucose Ql (U) Normal mg/dl Normal [facility] Work Phone: Urine leukocyte esterase det ection by dipstickon 01-28-2022 Leukocyte esterase Test strip Ql (U) Negative Negative [facility] Work Phone: Urine pHon 01-28-2022 pH (U) 7.0 [pH] 5.0 - 8.0 [facility] Work Phone: Urine sediment bacteria coun t by microscopy (number/high power field)on 01-28-2022 Bacteria LM.HPF (Urine sed) [#/Area] 0 /[HPF] None Seen [facility] Work Phone: Urine specific gravity measu rementon 01-28-2022 Specific gravity (U) [Rel density] 1.010 1.002-1.030 [facility] Work Phone: Urobilinogen Auto test strip Ql (U)on 01-28-2022 Urobilinogen Ql (U) Normal mg/dl Normal [facility] Work Phone: No Panel Informationon 01-25 [place] Level 0.50 mmol/L 0.60-1.20 [facility] Work Phone: Basophil percentageon 2021 Cholesterol [Mass/Vol] 140 mg/dL <200 [facility] Work Phone: Comment on above: <200 mg/dL Desirable 200-240 mg/dL Borderline >240 mg/dL High Risk Triglyceride [Mass/Vol] 247 mg/dL <199 [facility] Work Phone: Comment on above: The drugs N-Acetylcy steine and Metamizole may falsely depress this assay.Serum Triglycerides Reference Interval Normal <150 mg/dL Borderline high 150 - 199 mg/dL High 200 - 499 mg/dL Very High > or = 500 mg/dL No Panel Informationon 01-04 [place] Level 0.50 mmol/L 0.60-1.20 [facility] Work Phone: Serum or plasma cholesterol in HDL measurement (mass/volume)on 01-04-2022 Cholesterol in HDL [Mass/Vol] 34 mg/dL >40 [facility] Work Phone: Comment on above: The drugs N-Acetylcy steine and Metamizole may falsely depress this assay. Reference Range HDL <40 mg/dL Low HDL Cholesterol HDL >or= 60 mg/dL High HDL Cholesterol Serum or plasma cholesterol in VLDL measurement (mass/volume)on 01-04-2022 Cholesterol in VLDL [Mass/Vol] 49 mg/dL 5-40 [facility] Work Phone: Serum or plasma low density lipoprotein (LDL) cholesterol measurement (mass/volume)on 01-04-2022 Cholesterol in LDL [Mass/Vol] 57 mg/dL 0-130 [facility] Work Phone: No Panel Informationon 12-07 [place] Level 0.50 mmol/L 0.60-1.20 [facility] Work Phone: [phone] Absolute lymphocyte counton 12-03-2021 Lymphocytes Auto (Unsp spec) [#/Vol] 2.02 10*3/uL 0.83-4.51 [facility] Work Phone: Basophil percentageon 2021 Basophils/100 WBC (Bld) 1.1 % 0-1 [facility] Work Phone: Chloride [Moles/Vol] 108 mmol/L 98-107 [facility] Work Phone: Eosinophils/100 WBC (Bld) 2.9 % 0-5 [facility] Work Phone: [phone] Glucose [Mass/Vol] 118 mg/dL 74-106 [facility] Work Phone: Comment on above: Fasting Glucose resu lt from 100 to 125 mg/dL suggests IMPAIRED HOMEOSTASIS per A.D.A. criteria. Neutrophils (Bld) [#/Vol] 4.3 10*3/uL 2.0-7.7 [facility] Work Phone: Neutrophils/100 WBC (Bld) 57.2 % 47-70 [facility] Work Phone: Potassium [Moles/Vol] 3.9 mmol/L 3.5-5.1 [facility] Work Phone: Sodium [Moles/Vol] 140 mmol/L 136-145 [facility] Work Phone: WBC (Bld) [#/Vol] 7.5 10*3/uL 4.4-11.0 [facility] Work Phone: Bilirubin Test strip Ql (U)o n 12-03-2021 Bilirubin Ql (U) Negative Negative [facility] Work Phone: Blood erythrocytes count (nu mber/volume)on 12-03-2021 RBC (Bld) [#/Vol] 4.70 10*6/uL 4.6-6.2 [facility] Work Phone: Blood hemoglobin measurement (mass/volume)on 12-03-2021 Hemoglobin (Bld) [Mass/Vol] 13.7 g/dL 13.0-16.5 [facility] Work Phone: Blood lymphocytes/100 leukoc yteson 12-03-2021 Lymphocytes/100 WBC (Bld) 27.1 % 19-41 [facility] Work Phone: Blood monocytes/100 leukocyt eson 12-03-2021 Monocytes/100 WBC (Bld) 11.0 % 0-10 [facility] Work Phone: Blood platelet mean volumeon 12-03-2021 Platelet mean volume (Bld) [Entitic vol] 9.1 fL 6.2-12.0 [facility] Work Phone: Culture, urineon 12-03-2021 Bacteria identified Cx Nom (U) Culture exhibits no growth. [facility] Work Phone: Determination of erythrocyte mean corpuscular volume (MCV)on 12-03-2021 MCV (RBC) [Entitic vol] 88.9 fL 80-94 [facility] Work Phone: Hematocrit Auto (Bld) [Volum e fraction]on 12-03-2021 Hematocrit (Bld) [Volume fraction] 41.8 % 40-54 [facility] Work Phone: Ketones Test strip Ql (U)on 12-03-2021 Ketones Ql (U) Negative Negative [facility] Work Phone: Laboratory - Chemistry and C hemistry - challengeon 12-03-2021 CO2 [Moles/Vol] 27.0 mmol/L 21.0-32.0 [facility] Work Phone: Urea nitrogen/Creatinine [Mass ratio] 9.7 mg/mg 10-20 [facility] Work Phone: Laboratory - Hematology and Cell countson 12-03-2021 Erythrocyte distribution width (RBC) [Entitic vol] 43.4 fL 35.1-43.9 [facility] Work Phone: Erythrocyte distribution width (RBC) [Ratio] 13.2 % 11.6-14.6 [facility] Work Phone: Immature granulocytes/100 WBC (Bld) 0.700 % 0.0-0.9 [facility] Work Phone: Comment on above: IG% - Immature Granu locytes (promyelocytes, myelocytes and metamyelocytes) > 1% indicates that a LEFT SHIFT is Present. MCH (RBC) [Entitic mass] 29.1 pg 27.0-32.0 [facility] Work Phone: Nucleated RBC/100 WBC (Bld) [Ratio] 0 % 0-5 [facility] Work Phone: MCHC Auto (RBC) [Mass/Vol]on 12-03-2021 MCHC (RBC) [Mass/Vol] 32.8 g/dL 32-36 [facility] Work Phone: Nitrite Test strip Ql (U)on 12-03-2021 Nitrite Ql (U) Negative Negative [facility] Work Phone: No Panel Informationon 12-03 Estimated GFR (MDRD) Amer 43 mL/min >60 [facility] Work Phone: Comment on above: GFR Calc Estimated GFR (MDRD) Non-Af Amer 35 mL/min >60 [facility] Work Phone: Comment on above: Non- GFR Calc [place] Level 0.50 mmol/L 0.60-1.20 [facility] Work Phone: Platelets bldon 12-03-2021 Platelets (Bld) [#/Vol] 230 10*3/uL 150-450 [facility] Work Phone: Protein Test strip Ql (U)on 12-03-2021 Protein Ql (U) Negative Negative [facility] Work Phone: Serum or plasma calcium you urement (mass/volume)on 12-03-2021 Calcium [Mass/Vol] 8.9 mg/dL 8.5-10.1 [facility] Work Phone: Serum or plasma creatinine m easurement (mass/volume)on 12-03-2021 Creatinine [Mass/Vol] 2.07 mg/dL 0.70-1.30 [facility] Work Phone: Comment on above: The validity of the calculated GFR & GFRAA in patients over 70 years has not been determined. Clinical correlation is essential. Serum or plasma urea nitroge n measurement (mass/volume)on 12-03-2021 Urea nitrogen [Mass/Vol] 20 mg/dL 7-18 [facility] Work Phone: Thin prep Papanicolaou smear with manual screeningon 12-03-2021 Thin prep Papanicolaou smear with manual screening 5 5-15 [facility] Work Phone: Urine blood detectionon 11-15 RBC Ql (U) Negative Negative [facility] Work Phone: Urine clarityon 12-03-2021 Clarity (U) Clear Clear [facility] Work Phone: Urine color determinationon 12-03-2021 Color (U) Yellow Yellow [facility] Work Phone: Urine glucose detectionon Glucose Ql (U) Normal mg/dl Normal [facility] Work Phone: Urine leukocyte esterase det ection by dipstickon 12-03-2021 Leukocyte esterase Test strip Ql (U) Negative Negative [facility] Work Phone: Urine pHon 12-03-2021 pH (U) 7.0 [pH] [facility] Work Phone: Urine specific gravity measu rementon 12-03-2021 Specific gravity (U) [Rel density] 1.010 [facility] Work Phone: Urobilinogen Auto test strip Ql (U)on 12-03-2021 Urobilinogen Ql (U) Normal mg/dl Normal [facility] Work Phone: No Panel Informationon 11-09 [place] Level 0.40 mmol/L 0.60-1.20 [facility] Work Phone: Absolute lymphocyte counton 11-05-2021 Lymphocytes Auto (Unsp spec) [#/Vol] 2.12 10*3/uL 0.83-4.51 [facility] Work Phone: Basophil percentageon 2020 Chloride [Moles/Vol] 110 mmol/L 98-107 [facility] Work Phone: Eosinophils/100 WBC (Bld) 2.8 % 0-5 [facility] Work Phone: Glucose [Mass/Vol] 132 mg/dL 74-106 [facility] Work Phone: Comment on above: Fasting Glucose resu lt greater than or equal to 126 mg/dL suggests DIABETES MELLITUS per A.D.A. criteria.Please note revised GLUCOSE reference range effective 2017. Neutrophils (Bld) [#/Vol] 5.7 10*3/uL 2.0-7.7 [facility] Work Phone: [phone] Potassium [Moles/Vol] 4.0 mmol/L 3.5-5.1 [facility] Work Phone: Sodium [Moles/Vol] 143 mmol/L 136-145 [facility] Work Phone: WBC (Bld) [#/Vol] 9.3 10*3/uL 4.4-11.0 [facility] Work Phone: Basophil percentage 10-25 SEEN /hpf [facility] Work Phone: [phone] Bilirubin Test strip Ql (U)o n 11-05-2021 Bilirubin Ql (U) Negative Negative [facility] Work Phone: Blood erythrocytes count (nu mber/volume)on 11-05-2021 RBC (Bld) [#/Vol] 4.57 10*6/uL 4.6-6.2 [facility] Work Phone: Blood hemoglobin measurement (mass/volume)on 11-05-2021 Hemoglobin (Bld) [Mass/Vol] 13.4 g/dL 13.0-16.5 [facility] Work Phone: Blood lymphocytes/100 leukoc yteson 11-05-2021 Lymphocytes/100 WBC (Bld) 22.9 % 19-41 [facility] Work Phone: Blood monocytes/100 leukocyt eson 11-05-2021 Monocytes/100 WBC (Bld) 10.9 % 0-10 [facility] Work Phone: Blood platelet mean volumeon 11-05-2021 Platelet mean volume (Bld) [Entitic vol] 9.1 fL 6.2-12.0 [facility] Work Phone: Culture, urineon 11-05-2021 Bacteria identified Cx Nom (U) Streptococcus mitis/ oralis [facility] Work Phone: Determination of erythrocyte mean corpuscular volume (MCV)on 11-05-2021 MCV (RBC) [Entitic vol] 89.5 fL 80-94 [facility] Work Phone: Hematocrit Auto (Bld) [Volum e fraction]on 11-05-2021 Hematocrit (Bld) [Volume fraction] 40.9 % 40-54 [facility] Work Phone: Ketones Test strip Ql (U)on 11-05-2021 Ketones Ql (U) Negative Negative [facility] Work Phone: Laboratory - Chemistry and C hemistry - challengeon 11-05-2021 CO2 [Moles/Vol] 28.0 mmol/L 21.0-32.0 [facility] Work Phone: Urea nitrogen/Creatinine [Mass ratio] 11.6 mg/mg 10-20 [facility] Work Phone: Laboratory - Hematology and Cell countson 11-05-2021 Basophils/100 WBC (Unsp spec) 0.9 % 0-1 [facility] Work Phone: Erythrocyte distribution width (RBC) [Entitic vol] 43.5 fL 35.1-43.9 [facility] Work Phone: Erythrocyte distribution width (RBC) [Ratio] 13.3 % 11.6-14.6 [facility] Work Phone: Immature granulocytes/100 WBC (Bld) 0.600 % 0.0-0.9 [facility] Work Phone: Comment on above: IG% - Immature Granu locytes (promyelocytes, myelocytes and metamyelocytes) > 1% indicates that a LEFT SHIFT is Present. MCH (RBC) [Entitic mass] 29.3 pg 27.0-32.0 [facility] Work Phone: Neutrophils/100 WBC (Bld) 61.9 % 47-70 [facility] Work Phone: Nucleated RBC/100 WBC (Bld) [Ratio] 0 % 0-5 [facility] Work Phone: MCHC Auto (RBC) [Mass/Vol]on 11-05-2021 MCHC (RBC) [Mass/Vol] 32.8 g/dL 32-36 [facility] Work Phone: Mucus LM Ql (Urine sed)on Mucus Ql (Urine sed) 0 SEEN /hpf [facility] Work Phone: Nitrite Test strip Ql (U)on 11-05-2021 Nitrite Ql (U) Negative Negative [facility] Work Phone: No Panel Informationon 11-05 Estimated GFR (MDRD) Amer 47 mL/min >60 [facility] Work Phone: Comment on above: GFR Calc Estimated GFR (MDRD) Non-Af Amer 39 mL/min >60 [facility] Work Phone: Comment on above: Non- GFR Calc Platelets bldon 11-05-2021 Platelets (Bld) [#/Vol] 218 10*3/uL 150-450 [facility] Work Phone: Protein Test strip Ql (U)on 11-05-2021 Protein Ql (U) 15 mg/dl Negative [facility] Work Phone: Serum or plasma albumin you urement (mass/volume)on 11-05-2021 Albumin [Mass/Vol] 2.7 g/dL 3.2-5.0 [facility] Work Phone: Serum or plasma calcium you urement (mass/volume)on 11-05-2021 Calcium [Mass/Vol] 8.7 mg/dL 8.5-10.1 [facility] Work Phone: Serum or plasma creatinine m easurement (mass/volume)on 11-05-2021 Creatinine [Mass/Vol] 1.90 mg/dL 0.70-1.30 [facility] Work Phone: Comment on above: The validity of the calculated GFR & GFRAA in patients over 70 years has not been determined. Clinical correlation is essential. Serum or plasma urea nitroge n measurement (mass/volume)on 11-05-2021 Urea nitrogen [Mass/Vol] 22 mg/dL 7-18 [facility] Work Phone: Squamous epithelial cells de tection in urine sediment by light microscopyon 11-05-2021 Epithelial cells.squamous LM Ql (Urine sed) 0-5 SEEN /hpf [facility] Work Phone: Thin prep Papanicolaou smear with manual screeningon 11-05-2021 Thin prep Papanicolaou smear with manual screening 5 5-15 [facility] Work Phone: Urine blood detectionon 10-15 RBC Ql (U) Negative Negative [facility] Work Phone: RBC Ql (U) 0 SEEN /hpf [facility] Work Phone: Urine clarityon 11-05-2021 Clarity (U) Sl. Cloudy Clear [facility] Work Phone: Urine color determinationon 11-05-2021 Color (U) Yellow Yellow [facility] Work Phone: Urine creatinine measurement (mass/volume)on 11-05-2021 Creatinine (U) [Mass/Vol] 169.00 mg/dL NO RANGE EST. [facility] Work Phone: Urine glucose detectionon Glucose Ql (U) Normal mg/dl Normal [facility] Work Phone: Urine leukocyte esterase det ection by dipstickon 11-05-2021 Leukocyte esterase Test strip Ql (U) 100 /ul Negative [facility] Work Phone: Urine pHon 11-05-2021 pH (U) 6.0 [pH] [facility] Work Phone: Urine protein measurement (m ass/volume)on 11-05-2021 Protein (U) [Mass/Vol] 21.0 mg/dL 0.0-11.8 [facility] Work Phone: Urine protein/creatinine mas s ratioon 11-05-2021 Protein/Creatinine (U) [Mass ratio] 124 mg/g CRE 0-200 [facility] Work Phone: Urine sediment bacteria coun t by microscopy (number/high power field)on 11-05-2021 Bacteria LM.HPF (Urine sed) [#/Area] 0 /[HPF] None Seen [facility] Work Phone: Urine specific gravity measu rementon 11-05-2021 Specific gravity (U) [Rel density] 1.020 [facility] Work Phone: Urobilinogen Auto test strip Ql (U)on 11-05-2021 Urobilinogen Ql (U) Normal mg/dl Normal [facility] Work Phone: CBC Auto Differentialon 10-15 Erythrocyte distribution width (RBC) [Ratio] 14.5 % 11.5 - 14.5 % [place] Hematocrit (Bld) [Volume fraction] 42.1 % 40 - 52 % [place] Hemoglobin (Bld) [Mass/Vol] 13.8 g/dL 13 - 18 g/dL [place] Interpretation and review of laboratory results Abnormal [place] MCH (RBC) [Entitic mass] 28.8 pg 26 - 34 pg [place] MCHC (RBC) [Mass/Vol] 32.7 % 32 - 36 % [place] MCV (RBC) [Entitic vol] 88.1 fL 80 - 98 fL [place], [place] Platelet mean volume (Bld) [Entitic vol] 7.9 fL 7.4 - 10.4 fL [place] Platelets (Bld) [#/Vol] 356 10*3/uL 140 - 440 10*3/uL [place] RBC (Bld) [#/Vol] 4.78 10*6/uL 4.4 - 5.9 10*6/uL [place] WBC (Bld) [#/Vol] 16.4 10*3/uL High 3.6 - 10.7 10*3/uL [place] Test Performed by [facility], [address] [place], [place] [address] [place] Comp Panel with Mg Reflexon 11-04-2020 Calcium [Mass/Vol] 8.9 mg/dL Normal 8.4-10.4 [facility] Comment on above: Performed By: #### H EMOG, CMP3M, CRP2, LDH3, FIBGN, DDI2, APTT, FERR3 #### [facility] [address] [place] [address] ALP [Catalytic activity/Vol] 83 U/L Normal 38-126 [facility] Comment on above: Performed By: #### H EMOG, CMP3M, CRP2, LDH3, FIBGN, DDI2, APTT, FERR3 #### [facility] [address] [place] [address] ALT [Catalytic activity/Vol] 133 U/L High 0-49 [facility] Comment on above: Result Comment: The ALT test is performed by an updated assay method. Please note that the reference intervals have been changed and are now sex specific. Performed By: #### H EMOG, CMP3M, CRP2, LDH3, FIBGN, DDI2, APTT, FERR3 #### [facility] [address] [place] [address] Anion gap [Moles/Vol] 9 Normal [facility] Comment on above: Performed By: #### H EMOG, CMP3M, CRP2, LDH3, FIBGN, DDI2, APTT, FERR3 #### [facility] [address] [place] [address] AST [Catalytic activity/Vol] 39 U/L Normal 15-46 [facility] Comment on above: Performed By: #### H EMOG, CMP3M, CRP2, LDH3, FIBGN, DDI2, APTT, FERR3 #### [facility] [address] [place] [address] Bilirubin [Mass/Vol] 0.6 mg/dL Normal 0.2-1.3 [facility] Comment on above: Performed By: #### H EMOG, CMP3M, CRP2, LDH3, FIBGN, DDI2, APTT, FERR3 #### [facility] [address] [place] [address] CO2 [Moles/Vol] 20 mmol/L Low 22-30 [facility] Comment on above: Performed By: #### H EMOG, CMP3M, CRP2, LDH3, FIBGN, DDI2, APTT, FERR3 #### [facility] [address] [place] [address] Glucose [Mass/Vol] 140 mg/dL High 70-100 [facility] Comment on above: Performed By: #### H EMOG, CMP3M, CRP2, LDH3, FIBGN, DDI2, APTT, FERR3 #### [facility] [address] [place] [address] Protein [Mass/Vol] 6.1 g/dL Low 6.3-8.2 [facility] Comment on above: Performed By: #### H EMOG, CMP3M, CRP2, LDH3, FIBGN, DDI2, APTT, FERR3 #### [facility] [address] [place] [address] Urea nitrogen [Mass/Vol] 41 mg/dL High 7-20 [facility] Comment on above: Performed By: #### H EMOG, CMP3M, CRP2, LDH3, FIBGN, DDI2, APTT, FERR3 #### [facility] [address] [place] [address] Creatinine [Mass/Vol] 1.84 mg/dL High 0.52-1.25 [facility] Comment on above: Performed By: #### H EMOG, CMP3M, CRP2, LDH3, FIBGN, DDI2, APTT, FERR3 #### [facility] [address] [place] [address] GFR/1.73 sq M predicted among blacks MDRD (S/P/Bld) [Vol rate/Area] 46.0 mL/min/{1.73_m2} Abnormal >60 [facility] Comment on above: Performed By: #### H EMOG, CMP3M, CRP2, LDH3, FIBGN, DDI2, APTT, FERR3 #### [facility] [address] [place] [address] GFR/1.73 sq M predicted among non-blacks MDRD (S/P/Bld) [Vol rate/Area] 39.7 mL/min/{1.73_m2} Abnormal >60 [facility] Comment on above: Result Comment: KDIG [...] CRP2, LDH3, FIBGN, DDI2, APTT, FERR3 #### [facility] [address] [place] [address] Albumin [Mass/Vol] 3.4 g/dL Low 3.5-5.0 [facility] Comment on above: Performed By: #### H EMOG, CMP3M, CRP2, LDH3, FIBGN, DDI2, APTT, FERR3 #### [facility] [address] [place] [address] Chloride [Moles/Vol] 106 mmol/L Normal 98-107 [facility] Comment on above: Performed By: #### H EMOG, CMP3M, CRP2, LDH3, FIBGN, DDI2, APTT, FERR3 #### [facility] [address] [place] [address] Potassium [Moles/Vol] 4.3 mmol/L Normal 3.5-5.1 [facility] Comment on above: Performed By: #### H EMOG, CMP3M, CRP2, LDH3, FIBGN, DDI2, APTT, FERR3 #### [facility] [address] [place] [address] Sodium [Moles/Vol] 134 mmol/L Low 135-145 [facility] Comment on above: Performed By: #### H EMOG, CMP3M, CRP2, LDH3, FIBGN, DDI2, APTT, FERR3 #### [facility] [address] [place] [address] Comprehensive Metabolic Pane l w/ Reflex to MGon 11-04-2020 Albumin [Mass/Vol] 3.4 g/dL Low 3.5 - 5 g/dL [place] ALP [Catalytic activity/Vol] 83 U/L 38 - 126 U/L [place] ALT [Catalytic activity/Vol] 133 U/L High 0 - 49 U/L [place] Comment on above: The ALT test is perf ormed by an updated assay method. Please note that the reference intervals have been changed and are now sex specific. Anion gap [Moles/Vol] 9 mmol/L [place] AST [Catalytic activity/Vol] 39 U/L 15 - 46 U/L [place] Bilirubin Ql (U) 0.6 mg/dL 0.2 - 1.3 mg/dL [place] Calcium [Mass/Vol] 8.9 mg/dL 8.4 - 10. 4 mg/dL [place] Chloride [Moles/Vol] 106 mmol/L 98 - 10 7 mmol/L [place] CO2 [Moles/Vol] 20 mmol/L Low 22 - 30 mmol/L [place] Creatinine [Mass/Vol] 1.84 mg/dL High 0.52 - 1.25 mg/dL [place] EGFR IF NonAfrican Indian 39.7 mL/min Abnormal >60 [place] Comment on above: KDIGO guidelines pro [...] (S/P/Bld) [Vol rate/Area] 46.0 mL/min/{1.73_m2} Abnormal >60 [place] Glucose [Mass/Vol] 140 mg/dL High 70 - 100 mg/dL [place] Interpretation and review of laboratory results Abnormal [place] Potassium [Moles/Vol] 4.3 mmol/L 3.5 - 5.1 mmol/L [place] Protein [Mass/Vol] 6.1 g/dL Low 6.3 - 8.2 g/dL [place] Sodium [Moles/Vol] 134 mmol/L Low 135 - 145 mmol/L [place] Urea nitrogen [Mass/Vol] 41 mg/dL High 7 - 20 mg/dL [place] Test Performed by [facility], [address] [place] [address] [place] Hemogram w/ Autodiffon 11-04 Erythrocyte distribution width (RBC) [Ratio] 14.5 % Normal 11.5-14.5 [facility] Comment on above: Performed By: #### H EMOG, CMP3M, CRP2, LDH3, FIBGN, DDI2, APTT, FERR3 #### [facility] [address] [place] [address] Hematocrit (Bld) [Volume fraction] 42.1 % Normal 40.0-52.0 [facility] Comment on above: Performed By: #### H EMOG, CMP3M, CRP2, LDH3, FIBGN, DDI2, APTT, FERR3 #### [facility] [address] [place] [address] Hemoglobin (Bld) [Mass/Vol] 13.8 g/dL Normal 13.0-18.0 [facility] Comment on above: Performed By: #### H EMOG, CMP3M, CRP2, LDH3, FIBGN, DDI2, APTT, FERR3 #### [facility] [address] [place] [address] MCH (RBC) [Entitic mass] 28.8 pg Normal 26.0-34.0 [facility] Comment on above: Performed By: #### H EMOG, CMP3M, CRP2, LDH3, FIBGN, DDI2, APTT, FERR3 #### [facility] [address] [place] [address] MCHC (RBC) [Mass/Vol] 32.7 % Normal 32.0-36.0 [facility] Comment on above: Performed By: #### H EMOG, CMP3M, CRP2, LDH3, FIBGN, DDI2, APTT, FERR3 #### [facility] [address] [place] [address] MCV (RBC) [Entitic vol] 88.1 fL Normal 80.0-98.0 [facility] Comment on above: Performed By: #### H EMOG, CMP3M, CRP2, LDH3, FIBGN, DDI2, APTT, FERR3 #### [facility] [address] [place] [address] Platelet mean volume (Bld) [Entitic vol] 7.9 fL Normal 7.4-10.4 [facility] Comment on above: Performed By: #### H EMOG, CMP3M, CRP2, LDH3, FIBGN, DDI2, APTT, FERR3 #### [facility] [address] [place] [address] Platelets (Bld) [#/Vol] 356 10*3/uL Normal 140-440 [facility] Comment on above: Performed By: #### H EMOG, CMP3M, CRP2, LDH3, FIBGN, DDI2, APTT, FERR3 #### [facility] [address] [place] [address] RBC (Bld) [#/Vol] 4.78 10*6/uL Normal 4.40-5.90 [facility] Comment on above: Performed By: #### H EMOG, CMP3M, CRP2, LDH3, FIBGN, DDI2, APTT, FERR3 #### [facility] [address] [place] [address] WBC (Bld) [#/Vol] 16.4 10*3/uL High 3.6-10.7 [facility] Comment on above: Performed By: #### H EMOG, CMP3M, CRP2, LDH3, FIBGN, DDI2, APTT, FERR3 #### [facility] [address] [place] [address] Manual Diffon 11-04-2020 Abs Baso Cnt 0.0 10*3/uL Normal 0.0-0.2 [facility] Comment on above: Performed By: #### H EMOG, CMP3M, CRP2, LDH3, FIBGN, DDI2, APTT, FERR3 #### [facility] [address] [place] [address] Abs Eosin Cnt 0.0 10*3/uL Normal 0.0-0.5 [facility] Comment on above: Performed By: #### H EMOG, CMP3M, CRP2, LDH3, FIBGN, DDI2, APTT, FERR3 #### [facility] [address] [place] [address] Abs Lymph Cnt 1.0 10*3/uL Low 1.1-4.5 [facility] Comment on above: Performed By: #### H EMOG, CMP3M, CRP2, LDH3, FIBGN, DDI2, APTT, FERR3 #### [facility] [address] [place] [address] Abs Monocyte Cnt 1.3 10*3/uL High 0.2-1.1 [facility] Comment on above: Performed By: #### H EMOG, CMP3M, CRP2, LDH3, FIBGN, DDI2, APTT, FERR3 #### [facility] [address] [place] [address] Abs Neutrophile Cnt 13.1 10*3/uL High 2.2-8.2 [facility] Comment on above: Performed By: #### H EMOG, CMP3M, CRP2, LDH3, FIBGN, DDI2, APTT, FERR3 #### [facility] [address] [place] [address] Anisocytosis Ql (Bld) Slight Normal [facility] Comment on above: Performed By: #### H EMOG, CMP3M, CRP2, LDH3, FIBGN, DDI2, APTT, FERR3 #### [facility] [address] [place] [address] Bands 2 % Normal 0-3 [facility] Comment on above: Performed By: #### H EMOG, CMP3M, CRP2, LDH3, FIBGN, DDI2, APTT, FERR3 #### [facility] [address] [place] [address] Basophils 0 % Normal 0-2 [facility] Comment on above: Performed By: #### H EMOG, CMP3M, CRP2, LDH3, FIBGN, DDI2, APTT, FERR3 #### [facility] [address] [place] [address] Danya Cells Slight Normal [facility] Comment on above: Performed By: #### H EMOG, CMP3M, CRP2, LDH3, FIBGN, DDI2, APTT, FERR3 #### [facility] [address] [place] [address] Cells counted 100 Normal [facility] Comment on above: Performed By: #### H EMOG, CMP3M, CRP2, LDH3, FIBGN, DDI2, APTT, FERR3 #### [facility] [address] [place] [address] Eosinophils 0 % Low 1-6 [facility] Comment on above: Performed By: #### H EMOG, CMP3M, CRP2, LDH3, FIBGN, DDI2, APTT, FERR3 #### [facility] [address] [place] [address] Lymphocytes 6 % Low 20-40 [facility] Comment on above: Performed By: #### H EMOG, CMP3M, CRP2, LDH3, FIBGN, DDI2, APTT, FERR3 #### [facility] [address] [place] [address] Metamyelocytes 5 % Abnormal <1 [facility] Comment on above: Performed By: #### H EMOG, CMP3M, CRP2, LDH3, FIBGN, DDI2, APTT, FERR3 #### [facility] [address] [place] [address] Monocytes 8 % Normal 2-10 [facility] Comment on above: Performed By: #### H EMOG, CMP3M, CRP2, LDH3, FIBGN, DDI2, APTT, FERR3 #### [facility] [address] [place] [address] Myelocytes 1 % Abnormal <1 [facility] Comment on above: Performed By: #### H EMOG, CMP3M, CRP2, LDH3, FIBGN, DDI2, APTT, FERR3 #### [facility] [address] [place] [address] Poikilocytosis Slight Normal [facility] Comment on above: Performed By: #### H EMOG, CMP3M, CRP2, LDH3, FIBGN, DDI2, APTT, FERR3 #### [facility] [address] [place] [address] RBC morphology finding Nom (Bld) ABNORMAL Normal [facility] Comment on above: Performed By: #### H EMOG, CMP3M, CRP2, LDH3, FIBGN, DDI2, APTT, FERR3 #### [facility] [address] [place] [address] Seg Neutrophils 78 % Normal 40-80 [facility] Comment on above: Performed By: #### H EMOG, CMP3M, CRP2, LDH3, FIBGN, DDI2, APTT, FERR3 #### [facility] [address] [place] [address] Manual Differentialon 2019 Absolute Baso # 0.0 10*3/uL 0 - 0.2 10*3/uL [place] Absolute Eos # 0.0 10*3/uL 0 - 0.5 10*3/uL [place] Absolute Lymph # 1.0 10*3/uL Low 1.1 - 4.5 10*3/uL [place] Absolute [place] # 1.3 10*3/uL High 0.2 - 1.1 10*3/uL [place] Absolute Neut # 13.1 10*3/uL High 2.2 - 8.2 10*3/uL [place] Anisocytosis Ql (Bld) Slight [facility], [place] Bands 2 % 0 - 3 % [place] Basophils 0 % 0 - 2 % [facility] Cells Slight [place] Eosinophils 0 % Low 1 - 6 % [place] Interpretation and review of laboratory results Abnormal [place] Lymphocytes 6 % Low 20 - 40 % [place] Metamyelocytes 5 % Abnormal <1 [place] Monocytes 8 % 2 - 10 % [place] Myelocytes 1 % Abnormal <1 [place] Poikilocytes Slight [place] RBC morphology finding Nom (Bld) ABNORMAL [place] Seg Neutrophils 78 % 40 - 80 % [place] TOTAL CELLS COUNTED 100 [place] Test Performed by [facility] [employer] [facility], [address], [place], [place] [address] [place] Add On Lab Teston 11-03-2020 Sodium [Moles/Vol] Accepted [place] Comment on above: Specimen available & acceptable for analysis. Test Performed by [facility], [address] [place] [address] [place] Add on test from HISon 11-03 Add on test from HIS Accepted Normal [facility] [employer] [facility] Comment on above: Result Comment: Spec imen available & acceptable for analysis. Performed By: #### H EMOG, CMP3M, CRP2, LDH3, FIBGN, DDI2, APTT, FERR3 #### [facility] [address] [place] [address] CBC Auto Differentialon 10-15 Erythrocyte distribution width (RBC) [Ratio] 14.3 % 11.5 - 14.5 % [place] Hematocrit (Bld) [Volume fraction] 39.0 % Low 40 - 52 % [place] Hemoglobin (Bld) [Mass/Vol] 12.8 g/dL Low 13 - 18 g/dL [place] Interpretation and review of laboratory results Abnormal [place] MCH (RBC) [Entitic mass] 28.7 pg 26 - 34 pg [place] MCHC (RBC) [Mass/Vol] 32.8 % 32 - 36 % [place] MCV (RBC) [Entitic vol] 87.6 fL 80 - 98 fL [place] Platelet mean volume (Bld) [Entitic vol] 7.5 fL 7.4 - 10.4 fL [place] Platelets (Bld) [#/Vol] 332 10*3/uL 140 - 440 10*3/uL [place] RBC (Bld) [#/Vol] 4.45 10*6/uL 4.4 - 5.9 10*6/uL [place] WBC (Bld) [#/Vol] 15.6 10*3/uL High 3.6 - 10.7 10*3/uL [place] Test Performed by [facility], [address], [place], [place] [address] [place] CR Chest PA/LATon 11-03-2020 CR Chest PA/LAT Patient Name: REGGIE LEÓN Diagnostic Radiology ACCESSION EXAM DATE/TIME PROCEDURE ORDERING PROVIDER [id number] 11/03/2020 10:20 EST CR Chest PA and LAT MD DIAZ IMOLA KINGA CPT code 31760 Reason For Exam (CR Chest PA and [...] Transcribed Date and Time: 11/03/2020 10:59 Normal [facility] Comp Panel with Mg Reflexon 11-03-2020 Calcium [Mass/Vol] 9.0 mg/dL Normal 8.4-10.4 [facility] Comment on above: Performed By: #### H EMOG, CMP3M, CRP2, LDH3, FIBGN, DDI2, APTT, FERR3 #### [facility] [address] [place] [address] Anion gap [Moles/Vol] 5 Normal [facility] Comment on above: Performed By: #### H EMOG, CMP3M, CRP2, LDH3, FIBGN, DDI2, APTT, FERR3 #### [facility] [address] [place] [address] Bilirubin [Mass/Vol] 0.7 mg/dL Normal 0.2-1.3 [facility] Comment on above: Performed By: #### H EMOG, CMP3M, CRP2, LDH3, FIBGN, DDI2, APTT, FERR3 #### [facility] [address] [place] [address] Creatinine [Mass/Vol] 2.08 mg/dL High 0.52-1.25 [facility] Comment on above: Performed By: #### H EMOG, CMP3M, CRP2, LDH3, FIBGN, DDI2, APTT, FERR3 #### [facility] [address] [place] [address] GFR/1.73 sq M predicted among blacks MDRD (S/P/Bld) [Vol rate/Area] 39.6 mL/min/{1.73_m2} Abnormal >60 [facility] Comment on above: Performed By: #### H EMOG, CMP3M, CRP2, LDH3, FIBGN, DDI2, APTT, FERR3 #### [facility] [address] [place] [address] GFR/1.73 sq M predicted among non-blacks MDRD (S/P/Bld) [Vol rate/Area] 34.2 mL/min/{1.73_m2} Abnormal >60 [facility] Comment on above: Result Comment: KDIG [...] CRP2, LDH3, FIBGN, DDI2, APTT, FERR3 #### [facility] [address] [place] [address] Albumin [Mass/Vol] 3.4 g/dL Low 3.5-5.0 [facility] Comment on above: Performed By: #### H EMOG, CMP3M, CRP2, LDH3, FIBGN, DDI2, APTT, FERR3 #### [facility] [address] [place] [address] Chloride [Moles/Vol] 107 mmol/L Normal 98-107 [facility] Comment on above: Performed By: #### H EMOG, CMP3M, CRP2, LDH3, FIBGN, DDI2, APTT, FERR3 #### [facility] [address] [place] [address] Potassium [Moles/Vol] 3.8 mmol/L Normal 3.5-5.1 [facility] Comment on above: Performed By: #### H EMOG, CMP3M, CRP2, LDH3, FIBGN, DDI2, APTT, FERR3 #### [facility] [address] [place] [address] Sodium [Moles/Vol] 134 mmol/L Low 135-145 [facility] Comment on above: Performed By: #### H EMOG, CMP3M, CRP2, LDH3, FIBGN, DDI2, APTT, FERR3 #### [facility] [address] [place] [address] ALP [Catalytic activity/Vol] 83 U/L Normal 38-126 [facility] Comment on above: Performed By: #### H EMOG, CMP3M, CRP2, LDH3, FIBGN, DDI2, APTT, FERR3 #### [facility] [address] [place] [address] ALT [Catalytic activity/Vol] 175 U/L High 0-49 [place] Comment on above: Result Comment: The ALT test is performed by an updated assay method. Please note that the reference intervals have been changed and are now sex specific. Performed By: #### H EMOG, CMP3M, CRP2, LDH3, FIBGN, DDI2, APTT, FERR3 #### [facility] [address] [place] [address] The ALT test is perf ormed by an updated assay method. Please note that the reference intervals have been changed and are now sex specific. AST [Catalytic activity/Vol] 63 U/L High 15-46 [place] Comment on above: Performed By: #### H EMOG, CMP3M, CRP2, LDH3, FIBGN, DDI2, APTT, FERR3 #### [facility] [address] [place] [address] CO2 [Moles/Vol] 21 mmol/L Low 22-30 [place] Comment on above: Performed By: #### H EMOG, CMP3M, CRP2, LDH3, FIBGN, DDI2, APTT, FERR3 #### [facility] [address] [place] [address] Glucose [Mass/Vol] 139 mg/dL High 70-100 [place] Comment on above: Performed By: #### H EMOG, CMP3M, CRP2, LDH3, FIBGN, DDI2, APTT, FERR3 #### [facility] [address] [place] [address] Protein [Mass/Vol] 5.9 g/dL Low 6.3-8.2 [place] Comment on above: Performed By: #### H EMOG, CMP3M, CRP2, LDH3, FIBGN, DDI2, APTT, FERR3 #### [facility] [address] [place] [address] Urea nitrogen [Mass/Vol] 43 mg/dL High 7-20 [place] Comment on above: Performed By: #### H EMOG, CMP3M, CRP2, LDH3, FIBGN, DDI2, APTT, FERR3 #### [facility] [address] [place] [address] Comprehensive Metabolic Pane l w/ Reflex to MGon 11-03-2020 Albumin [Mass/Vol] 3.4 g/dL Low 3.5 - 5 g/dL [place] Anion gap [Moles/Vol] 5 mmol/L [place] Bilirubin Ql (U) 0.7 mg/dL 0.2 - 1.3 mg/dL [place] Calcium [Mass/Vol] 9.0 mg/dL 8.4 - 10. 4 mg/dL [place] Chloride [Moles/Vol] 107 mmol/L 98 - 10 7 mmol/L [place] Creatinine [Mass/Vol] 2.08 mg/dL High 0.52 - 1.25 mg/dL [place] EGFR IF NonAfrican Indian 34.2 mL/min Abnormal >60 [place] Comment on above: KDIGO guidelines pro [...] (S/P/Bld) [Vol rate/Area] 39.6 mL/min/{1.73_m2} Abnormal >60 [place] Interpretation and review of laboratory results Abnormal [place] Potassium [Moles/Vol] 3.8 mmol/L 3.5 - 5.1 mmol/L [place] Sodium [Moles/Vol] 134 mmol/L Low 135 - 145 mmol/L [place] Test Performed by [facility], [address] [place] [address] [place] Hemogram w/ Autodiffon 11-03 Erythrocyte distribution width (RBC) [Ratio] 14.3 % Normal 11.5-14.5 [facility] Comment on above: Performed By: #### H EMOG, CMP3M, CRP2, LDH3, FIBGN, DDI2, APTT, FERR3 #### [facility] [address] [place] [address] Hematocrit (Bld) [Volume fraction] 39.0 % Low 40.0-52.0 [facility] Comment on above: Performed By: #### H EMOG, CMP3M, CRP2, LDH3, FIBGN, DDI2, APTT, FERR3 #### [facility] [address] [place] [address] Hemoglobin (Bld) [Mass/Vol] 12.8 g/dL Low 13.0-18.0 [facility] Comment on above: Performed By: #### H EMOG, CMP3M, CRP2, LDH3, FIBGN, DDI2, APTT, FERR3 #### [facility] [address] [place] [address] MCH (RBC) [Entitic mass] 28.7 pg Normal 26.0-34.0 [facility] Comment on above: Performed By: #### H EMOG, CMP3M, CRP2, LDH3, FIBGN, DDI2, APTT, FERR3 #### [facility] [address] [place] [address] MCHC (RBC) [Mass/Vol] 32.8 % Normal 32.0-36.0 [facility] Comment on above: Performed By: #### H EMOG, CMP3M, CRP2, LDH3, FIBGN, DDI2, APTT, FERR3 #### [facility] [address] [place] [address] MCV (RBC) [Entitic vol] 87.6 fL Normal 80.0-98.0 [facility] Comment on above: Performed By: #### H EMOG, CMP3M, CRP2, LDH3, FIBGN, DDI2, APTT, FERR3 #### [facility] [address] [place] [address] Platelet mean volume (Bld) [Entitic vol] 7.5 fL Normal 7.4-10.4 [facility] Comment on above: Performed By: #### H EMOG, CMP3M, CRP2, LDH3, FIBGN, DDI2, APTT, FERR3 #### [facility] [address] [place] [address] Platelets (Bld) [#/Vol] 332 10*3/uL Normal 140-440 [facility] Comment on above: Performed By: #### H EMOG, CMP3M, CRP2, LDH3, FIBGN, DDI2, APTT, FERR3 #### [facility] [address] [place] [address] RBC (Bld) [#/Vol] 4.45 10*6/uL Normal 4.40-5.90 [facility] Comment on above: Performed By: #### H EMOG, CMP3M, CRP2, LDH3, FIBGN, DDI2, APTT, FERR3 #### [facility] [address] [place] [address] WBC (Bld) [#/Vol] 15.6 10*3/uL High 3.6-10.7 [facility] Comment on above: Performed By: #### H EMOG, CMP3M, CRP2, LDH3, FIBGN, DDI2, APTT, FERR3 #### [facility] [address] [place] [address] Manual Diffon 11-03-2020 Abs Lymph Cnt 2.0 10*3/uL Normal 1.1-4.5 [facility] Comment on above: Performed By: #### H EMOG, CMP3M, CRP2, LDH3, FIBGN, DDI2, APTT, FERR3 #### [facility] [address] [place] [address] Abs Monocyte Cnt 2.2 10*3/uL High 0.2-1.1 [facility] Comment on above: Performed By: #### H EMOG, CMP3M, CRP2, LDH3, FIBGN, DDI2, APTT, FERR3 #### [facility] [address] [place] [address] Abs Neutrophile Cnt 11.4 10*3/uL High 2.2-8.2 [facility] Comment on above: Performed By: #### H EMOG, CMP3M, CRP2, LDH3, FIBGN, DDI2, APTT, FERR3 #### [facility] [address] [place] [address] Anisocytosis Ql (Bld) Slight Normal [facility] Comment on above: Performed By: #### H EMOG, CMP3M, CRP2, LDH3, FIBGN, DDI2, APTT, FERR3 #### [facility] [address] [place] [address] Bands 4 % High 0-3 [facility] Comment on above: Performed By: #### H EMOG, CMP3M, CRP2, LDH3, FIBGN, DDI2, APTT, FERR3 #### [facility] [address] [place] [address] [place] [employer] Cells Slight Normal [facility] Comment on above: Performed By: #### H EMOG, CMP3M, CRP2, LDH3, FIBGN, DDI2, APTT, FERR3 #### [facility] [address] [place] [address] Lymphocytes 13 % Low 20-40 [facility] Comment on above: Performed By: #### H EMOG, CMP3M, CRP2, LDH3, FIBGN, DDI2, APTT, FERR3 #### [facility] [address] [place] [address] Monocytes 14 % High 2-10 [facility] Comment on above: Performed By: #### H EMOG, CMP3M, CRP2, LDH3, FIBGN, DDI2, APTT, FERR3 #### [facility] [address] [place] [address] NRBC 1 /100{WBCs} High -1-0 [facility] Comment on above: Result Comment: [place] orn (<60 days) 1-10 Adult <1 Performed By: #### H EMOG, CMP3M, CRP2, LDH3, FIBGN, DDI2, APTT, FERR3 #### [facility] [address] [place] [address] RBC morphology finding Nom (Bld) ABNORMAL Normal [facility] Comment on above: Performed By: #### H EMOG, CMP3M, CRP2, LDH3, FIBGN, DDI2, APTT, FERR3 #### [facility] [address] [place] [address] Seg Neutrophils 69 % Normal 40-80 [facility] Comment on above: Performed By: #### H EMOG, CMP3M, CRP2, LDH3, FIBGN, DDI2, APTT, FERR3 #### [facility] [address] [place] [address] Tear Drop Forms Slight Normal [facility] Comment on above: Performed By: #### H EMOG, CMP3M, CRP2, LDH3, FIBGN, DDI2, APTT, FERR3 #### [facility] [address] [place] [address] Abs Baso Cnt 0.0 10*3/uL Normal 0.0-0.2 [facility] Comment on above: Performed By: #### H EMOG, CMP3M, CRP2, LDH3, FIBGN, DDI2, APTT, FERR3 #### [facility] [address] [place] [address] Abs Eosin Cnt 0.0 10*3/uL Normal 0.0-0.5 [facility] Comment on above: Performed By: #### H EMOG, CMP3M, CRP2, LDH3, FIBGN, DDI2, APTT, FERR3 #### [facility] [address] [place] [address] Basophils 0 % Normal 0-2 [facility] Comment on above: Performed By: #### H EMOG, CMP3M, CRP2, LDH3, FIBGN, DDI2, APTT, FERR3 #### [facility] [address] [place] [address] Cells counted 100 Normal [facility] Comment on above: Performed By: #### H EMOG, CMP3M, CRP2, LDH3, FIBGN, DDI2, APTT, FERR3 #### [facility] [employer] [facility] [address] [place] [address] Eosinophils 0 % Low 1-6 [facility] Comment on above: Performed By: #### H EMOG, CMP3M, CRP2, LDH3, FIBGN, DDI2, APTT, FERR3 #### [facility] [employer] [facility] [address] [place] [address] Manual Differentialon 2019 Absolute Baso # 0.0 10*3/uL 0 - 0.2 10*3/uL [facility] Absolute Eos # 0.0 10*3/uL 0 - 0.5 10*3/uL [facility] Absolute Lymph # 2.0 10*3/uL 1.1 - 4.5 10*3/uL [facility] Absolute [place] # 2.2 10*3/uL High 0.2 - 1.1 10*3/uL [facility] Absolute Neut # 11.4 10*3/uL High 2.2 - 8.2 10*3/uL [facility] Anisocytosis Ql (Bld) Slight [facility] Bands 4 % High 0 - 3 % [facility] Basophils 0 % 0 - 2 % [facility] Cells Slight [facility] Eosinophils 0 % Low 1 - 6 % [facility] Interpretation and review of laboratory results Abnormal [facility] Lymphocytes 13 % Low 20 - 40 % [facility] Monocytes 14 % High 2 - 10 % [facility] nRBC 1 /100{WBCs} High -1 - 0 /100{WBCs} [facility] Comment on above: [place] (<60 days) 1 -10 Adult <1 RBC morphology finding Nom (Bld) ABNORMAL [facility] Seg Neutrophils 69 % 40 - 80 % [facility] Tear Drop Cells Slight [facility] TOTAL CELLS COUNTED 100 [place] Test Performed by [facility] [employer] [facility], [address] [place], [place] [address] [place] Procalcitoninon 11-03-2020 Procalcitonin < 0.10 Normal <0.10 [facility] Comment on above: Performed By: #### H EMOG, CMP3M, CRP2, LDH3, FIBGN, DDI2, APTT, FERR3 #### [facility] [address] [place] [address] Procalcitonin <0.10 <0.10 ng/mL [place] Sodium [Moles/Vol] See Below [place] Comment on above: PCT <0.50 = Low risk of severe sepsis and/or septic shock. PCT >2.00 = High risk of severe sepsis and/or septic shock. Test Performed by [facility], [address] [place] [id number] [place] Interpretation See Below Normal [facility] Comment on above: Result Comment: PCT <0.50 = Low risk of severe sepsis and/or septic shock. PCT >2.00 = High risk of severe sepsis and/or septic shock. Performed By: #### H EMOG, CMP3M, CRP2, LDH3, FIBGN, DDI2, APTT, FERR3 #### [facility] [address] [place] [address] XR CHEST (2 VW)on 11-03-2020 Michel, [facility] Incoming Radiology Results From [facility] - 11/03/2020 10:59 AM EST Patient Name: REGGIE LEÓN Diagnostic Radiology ACCESSION EXAM DATE/TIME PROCEDURE ORDERING PROVIDER [id number] 11/03/2020 10:20 EST CR Chest PA & LAT MD EMILY, FARRUKH MCCORMICK CPT code 19418 Reason For Exam (CR Chest PA & [...] JEFFREY Transcribed Date and Time: 11/03/2020 10:59 [place] Patient Name: [id number] Diagnostic Radiology ACCESSION EXAM DATE/TIME PROCEDURE ORDERING PROVIDER [id number] 11/03/2020 10:20 EST CR Chest PA & LAT MD EMILY, FARRUKH MCCORMICK CPT code 52334 Reason For Exam (CR Chest PA & [...] JEFFREY Transcribed Date and Time: 11/03/2020 10:59 [place] APTTon 11-02-2020 aPTT Coag (Bld) [Time] 30.4 s Normal 20.0-30.5 [facility] Comment on above: Result Comment: NOTE : The therapeutic time for Heparin anticoagulation, based on Xa activity inhibition, is an APTT of 46-80 seconds. Performed By: #### H EMOG, CMP3M, CRP2, LDH3, FIBGN, DDI2, APTT, FERR3 #### [facility] [address] [place] [address] aPTT Coag (Bld) [Time] 30.4 s 20 - 30.5 s [place] Comment on above: NOTE: The therapeuti c time for Heparin anticoagulation, based on Xa activity inhibition, is an APTT of 46-80 seconds. C-Reactive Proteinon 020 CRP [Mass/Vol] 10.2 mg/L High 0.0-6.0 [facility] Comment on above: Result Comment: . Performed By: #### H EMOG, CMP3M, CRP2, LDH3, FIBGN, DDI2, APTT, FERR3 #### [facility] [address] [place] [address] CRP [Mass/Vol] 10.2 mg/L High 0 - 6 mg/L [place] Comment on above: . CBCon 11-02-2020 Erythrocyte distribution width (RBC) [Ratio] 14.2 % 11.5 - 14.5 % [place] Hematocrit (Bld) [Volume fraction] 39.5 % Low 40 - 52 % [place] Hemoglobin (Bld) [Mass/Vol] 13.2 g/dL 13 - 18 g/dL [place] Interpretation and review of laboratory results Abnormal [place] MCH (RBC) [Entitic mass] 29.4 pg 26 - 34 pg [place] MCHC (RBC) [Mass/Vol] 33.5 % 32 - 36 % [place] MCV (RBC) [Entitic vol] 87.8 fL 80 - 98 fL [place] Platelet mean volume (Bld) [Entitic vol] 7.6 fL 7.4 - 10.4 fL [place], [place] Platelets (Bld) [#/Vol] 340 10*3/uL 140 - 440 10*3/uL [place] RBC (Bld) [#/Vol] 4.49 10*6/uL 4.4 - 5.9 10*6/uL [place] WBC (Bld) [#/Vol] 13.0 10*3/uL High 3.6 - 10.7 10*3/uL [place] Test Performed by [facility], [address], [place], [place] [address] [place] Comp Panel with Mg Reflexon 11-02-2020 ALT [Catalytic activity/Vol] 198 U/L High 0-49 [facility] Comment on above: Result Comment: The ALT test is performed by an updated assay method. Please note that the reference intervals have been changed and are now sex specific. Performed By: #### H EMOG, CMP3M, CRP2, LDH3, FIBGN, DDI2, APTT, FERR3 #### [facility] [address] [place] [address] Calcium [Mass/Vol] 8.8 mg/dL Normal 8.4-10.4 [facility] Comment on above: Performed By: #### H EMOG, CMP3M, CRP2, LDH3, FIBGN, DDI2, APTT, FERR3 #### [facility] [address] [place] [address] Glucose [Mass/Vol] 135 mg/dL High 70-100 [facility] Comment on above: Performed By: #### H EMOG, CMP3M, CRP2, LDH3, FIBGN, DDI2, APTT, FERR3 #### [facility] [address] [place] [address] ALP [Catalytic activity/Vol] 85 U/L Normal 38-126 [facility] Comment on above: Performed By: #### H EMOG, CMP3M, CRP2, LDH3, FIBGN, DDI2, APTT, FERR3 #### [facility] [address] [place] [address] Anion gap [Moles/Vol] 9 Normal [facility] Comment on above: Performed By: #### H EMOG, CMP3M, CRP2, LDH3, FIBGN, DDI2, APTT, FERR3 #### [facility] [address] [place] [address] AST [Catalytic activity/Vol] 104 U/L High 15-46 [facility] Comment on above: Performed By: #### H EMOG, CMP3M, CRP2, LDH3, FIBGN, DDI2, APTT, FERR3 #### [facility] [address] [place] [address] Bilirubin [Mass/Vol] 0.7 mg/dL Normal 0.2-1.3 [facility] Comment on above: Performed By: #### H EMOG, CMP3M, CRP2, LDH3, FIBGN, DDI2, APTT, FERR3 #### [facility] [address] [place] [id number] CO2 [Moles/Vol] 18 mmol/L Low 22-30 [facility] Comment on above: Performed By: #### H EMOG, CMP3M, CRP2, LDH3, FIBGN, DDI2, APTT, FERR3 #### [facility] [address] [place] [id number] Creatinine [Mass/Vol] 1.89 mg/dL High 0.52-1.25 [facility] Comment on above: Performed By: #### H EMOG, CMP3M, CRP2, LDH3, FIBGN, DDI2, APTT, FERR3 #### [facility] [facility] [address] [place] [address] GFR/1.73 sq M predicted among blacks MDRD (S/P/Bld) [Vol rate/Area] 44.5 mL/min/{1.73_m2} Abnormal >60 [facility] Comment on above: Performed By: #### H EMOG, CMP3M, CRP2, LDH3, FIBGN, DDI2, APTT, FERR3 #### [facility] [address] [place] [address] GFR/1.73 sq M predicted among non-blacks MDRD (S/P/Bld) [Vol rate/Area] 38.4 mL/min/{1.73_m2} Abnormal >60 [facility] Comment on above: Result Comment: KDIG [...] CRP2, LDH3, FIBGN, DDI2, APTT, FERR3 #### [facility] [address] [place] [address] Protein [Mass/Vol] 6.1 g/dL Low 6.3-8.2 [facility] Comment on above: Performed By: #### H EMOG, CMP3M, CRP2, LDH3, FIBGN, DDI2, APTT, FERR3 #### [facility] [address] [place] [address] Urea nitrogen [Mass/Vol] 35 mg/dL High 7-20 [facility] Comment on above: Performed By: #### H EMOG, CMP3M, CRP2, LDH3, FIBGN, DDI2, APTT, FERR3 #### [facility] [address] [place] [address] Potassium [Moles/Vol] 4.3 mmol/L Normal 3.5-5.1 [facility] Comment on above: Performed By: #### H EMOG, CMP3M, CRP2, LDH3, FIBGN, DDI2, APTT, FERR3 #### [facility] [address] [place] [address] Albumin [Mass/Vol] 3.3 g/dL Low 3.5-5.0 [facility] Comment on above: Performed By: #### H EMOG, CMP3M, CRP2, LDH3, FIBGN, DDI2, APTT, FERR3 #### [facility] [address] [place] [address] Chloride [Moles/Vol] 110 mmol/L High 98-107 [facility] Comment on above: Performed By: #### H EMOG, CMP3M, CRP2, LDH3, FIBGN, DDI2, APTT, FERR3 #### [facility] [address] [place] [address] Sodium [Moles/Vol] 137 mmol/L Normal 135-145 [facility] Comment on above: Performed By: #### H EMOG, CMP3M, CRP2, LDH3, FIBGN, DDI2, APTT, FERR3 #### [facility] [address] [place] [address] Comprehensive Metabolic Pane l w/ Reflex to MGon 11-02-2020 Albumin [Mass/Vol] 3.3 g/dL Low 3.5 - 5 g/dL [place] ALP [Catalytic activity/Vol] 85 U/L 38 - 126 U/L [place] ALT [Catalytic activity/Vol] 198 U/L High 0 - 49 U/L [place] Comment on above: The ALT test is perf ormed by an updated assay method. Please note that the reference intervals have been changed and are now sex specific. Anion gap [Moles/Vol] 9 mmol/L [place], [place] AST [Catalytic activity/Vol] 104 U/L High 15 - 46 U/L [place] Bilirubin Ql (U) 0.7 mg/dL 0.2 - 1.3 mg/dL [place] Calcium [Mass/Vol] 8.8 mg/dL 8.4 - 10. 4 mg/dL [place] Chloride [Moles/Vol] 110 mmol/L High 98 - 10 7 mmol/L [place] CO2 [Moles/Vol] 18 mmol/L Low 22 - 30 mmol/L [place] Creatinine [Mass/Vol] 1.89 mg/dL High 0.52 - 1.25 mg/dL [place] EGFR IF NonAfrican Indian 38.4 mL/min Abnormal >60 [place] Comment on above: KDIGO guidelines pro [...] (S/P/Bld) [Vol rate/Area] 44.5 mL/min/{1.73_m2} Abnormal >60 [facility] Glucose [Mass/Vol] 135 mg/dL High 70 - 100 mg/dL [facility] Potassium [Moles/Vol] 4.3 mmol/L 3.5 - 5.1 mmol/L [facility] Protein [Mass/Vol] 6.1 g/dL Low 6.3 - 8.2 g/dL [facility] Sodium [Moles/Vol] 137 mmol/L 135 - 145 mmol/L [facility] Urea nitrogen [Mass/Vol] 35 mg/dL High 7 - 20 mg/dL [facility] D-Dimer, Innovanceon -20-2 020 D-Dimer, Innovance 0.83 mg/L High 0.00-0.50 [facility] Comment on above: Result Comment: Inno quach D-Dimer values of <0.50 mg/L FEU can be used in combination with a pre-test probability model (e.g. Well's) to exclude pulmonary embolism (PE) disease, as well as an aid in the diagnosis of deep vein thrombosis (DVT). Performed By: #### H EMOG, CMP3M, CRP2, LDH3, FIBGN, DDI2, APTT, FERR3 #### [facility] [address] [place] [address] D-Dimer, Quantitativeon 12-2 0-2020 D-Dimer, Quant 0.83 mg/L High 0 - 0.5 mg/L [place] Comment on above: Innovance D-Dimer va lues of <0.50 mg/L FEU can be used in combination with a pre-test probability model (e.g. Well's) to exclude pulmonary embolism (PE) disease, as well as an aid in the diagnosis of deep vein thrombosis (DVT). Interpretation and review of laboratory results Abnormal [place] Ferritinon 11-02-2020 Ferritin [Mass/Vol] 938 ng/mL High 18-464 [facility] Comment on above: Performed By: #### H EMOG, CMP3M, CRP2, LDH3, FIBGN, DDI2, APTT, FERR3 #### [facility] [address] [place] [address] Ferritin [Mass/Vol] 938 ng/mL High 18 - 464 ng/mL [place] Interpretation and review of laboratory results Abnormal [place] Test Performed by [facility], [address] [place] [address] [place] Fibrinogenon 11-02-2020 Fibrinogen 373 mg/dL Normal 200-400 [facility] Comment on above: Performed By: #### H EMOG, CMP3M, CRP2, LDH3, FIBGN, DDI2, APTT, FERR3 #### [facility] [address] [place] [address] Fibrinogen 373 mg/dL 200 - 400 mg/dL [place] Hemogramon 11-02-2020 Erythrocyte distribution width (RBC) [Ratio] 14.2 % Normal 11.5-14.5 [facility] Comment on above: Performed By: #### H EMOG, CMP3M, CRP2, LDH3, FIBGN, DDI2, APTT, FERR3 #### [facility] [address] [place] [address] Hematocrit (Bld) [Volume fraction] 39.5 % Low 40.0-52.0 [facility] Comment on above: Performed By: #### H EMOG, CMP3M, CRP2, LDH3, FIBGN, DDI2, APTT, FERR3 #### [facility] [address] [place] [address] Hemoglobin (Bld) [Mass/Vol] 13.2 g/dL Normal 13.0-18.0 [facility] Comment on above: Performed By: #### H EMOG, CMP3M, CRP2, LDH3, FIBGN, DDI2, APTT, FERR3 #### [facility] [address] [place] [address] MCH (RBC) [Entitic mass] 29.4 pg Normal 26.0-34.0 [facility] Comment on above: Performed By: #### H EMOG, CMP3M, CRP2, LDH3, FIBGN, DDI2, APTT, FERR3 #### [facility] [address] [place] [address] MCHC (RBC) [Mass/Vol] 33.5 % Normal 32.0-36.0 [facility] Comment on above: Performed By: #### H EMOG, CMP3M, CRP2, LDH3, FIBGN, DDI2, APTT, FERR3 #### [facility] [address] [place] [address] MCV (RBC) [Entitic vol] 87.8 fL Normal 80.0-98.0 [facility] Comment on above: Performed By: #### H EMOG, CMP3M, CRP2, LDH3, FIBGN, DDI2, APTT, FERR3 #### [facility] [address] [place] [address] Platelet mean volume (Bld) [Entitic vol] 7.6 fL Normal 7.4-10.4 [facility] Comment on above: Performed By: #### H EMOG, CMP3M, CRP2, LDH3, FIBGN, DDI2, APTT, FERR3 #### [facility] [address] [place] [address] Platelets (Bld) [#/Vol] 340 10*3/uL Normal 140-440 [facility] Comment on above: Performed By: #### H EMOG, CMP3M, CRP2, LDH3, FIBGN, DDI2, APTT, FERR3 #### [facility] [address] [place] [address] RBC (Bld) [#/Vol] 4.49 10*6/uL Normal 4.40-5.90 [facility] Comment on above: Performed By: #### H EMOG, CMP3M, CRP2, LDH3, FIBGN, DDI2, APTT, FERR3 #### [facility] [address] [place] [address] WBC (Bld) [#/Vol] 13.0 10*3/uL High 3.6-10.7 [facility] Comment on above: Performed By: #### H EMOG, CMP3M, CRP2, LDH3, FIBGN, DDI2, APTT, FERR3 #### [facility] [address] [place] [address] LDHon 11-02-2020 LDH 589 U/L High 120-246 [facility] Comment on above: Performed By: #### H EMOG, CMP3M, CRP2, LDH3, FIBGN, DDI2, APTT, FERR3 #### [facility] [address] [place] [address] Lactate Dehydrogenaseon 10-15 0-2020 LD 589 U/L High 120 - 246 U/L [place] Otheron 11-02-2020 Test Performed by [facility], [address] [place], [place] [address] [place] Interpretation and review of laboratory results Abnormal [place] Test Performed by [facility], [address] [place] [address] [place] C-Reactive Proteinon 020 CRP [Mass/Vol] 14.1 mg/L High 0.0-6.0 [facility] Comment on above: Result Comment: . Performed By: #### H EMOG, CMP3M, CRP2, LDH3, FIBGN, DDI2, APTT, FERR3 #### [facility] [address] [place] [address] CRP [Mass/Vol] 14.1 mg/L High 0 - 6 mg/L [place] Comment on above: . Interpretation and review of laboratory results Abnormal [place] Test Performed by [facility], [address] [place], [place] [address] [place] Comp Panel with Mg Reflexon 11-01-2020 ALT [Catalytic activity/Vol] 173 U/L High 0-49 [facility] Comment on above: Result Comment: The ALT test is performed by an updated assay method. Please note that the reference intervals have been changed and are now sex specific. Performed By: #### H EMOG, CMP3M, CRP2, LDH3, FIBGN, DDI2, APTT, FERR3 #### [facility] [address] [place] [address] Calcium [Mass/Vol] 8.7 mg/dL Normal 8.4-10.4 [facility] Comment on above: Performed By: #### H EMOG, CMP3M, CRP2, LDH3, FIBGN, DDI2, APTT, FERR3 #### [facility] [address] [place] [address] ALP [Catalytic activity/Vol] 77 U/L Normal 38-126 [facility] Comment on above: Performed By: #### H EMOG, CMP3M, CRP2, LDH3, FIBGN, DDI2, APTT, FERR3 #### [facility] [address] [place] [address] Anion gap [Moles/Vol] 7 Normal [facility] Comment on above: Performed By: #### H EMOG, CMP3M, CRP2, LDH3, FIBGN, DDI2, APTT, FERR3 #### [facility] [address] [place] [address] AST [Catalytic activity/Vol] 135 U/L High 15-46 [facility] Comment on above: Performed By: #### H EMOG, CMP3M, CRP2, LDH3, FIBGN, DDI2, APTT, FERR3 #### [facility] [address] [place] [address] Bilirubin [Mass/Vol] 0.5 mg/dL Normal 0.2-1.3 [facility] Comment on above: Performed By: #### H EMOG, CMP3M, CRP2, LDH3, FIBGN, DDI2, APTT, FERR3 #### [facility] [address] [place] [address] CO2 [Moles/Vol] 18 mmol/L Low 22-30 [facility] Comment on above: Performed By: #### H EMOG, CMP3M, CRP2, LDH3, FIBGN, DDI2, APTT, FERR3 #### [facility] [address] [place] [address] Creatinine [Mass/Vol] 1.77 mg/dL High 0.52-1.25 [facility] Comment on above: Performed By: #### H EMOG, CMP3M, CRP2, LDH3, FIBGN, DDI2, APTT, FERR3 #### [facility] [address] [place] [address] GFR/1.73 sq M predicted among blacks MDRD (S/P/Bld) [Vol rate/Area] 48.2 mL/min/{1.73_m2} Abnormal >60 [facility] Comment on above: Performed By: #### H EMOG, CMP3M, CRP2, LDH3, FIBGN, DDI2, APTT, FERR3 #### [facility] [address] [place] [address] GFR/1.73 sq M predicted among non-blacks MDRD (S/P/Bld) [Vol rate/Area] 41.6 mL/min/{1.73_m2} Abnormal >60 [facility] Comment on above: Result Comment: KDIG [...] CRP2, LDH3, FIBGN, DDI2, APTT, FERR3 #### [facility] [address] [place] [address] Glucose [Mass/Vol] 134 mg/dL High 70-100 [facility] Comment on above: Performed By: #### H EMOG, CMP3M, CRP2, LDH3, FIBGN, DDI2, APTT, FERR3 #### [facility] [address] [place] [address] Protein [Mass/Vol] 5.6 g/dL Low 6.3-8.2 [facility] Comment on above: Performed By: #### H EMOG, CMP3M, CRP2, LDH3, FIBGN, DDI2, APTT, FERR3 #### [facility] [address] [place] [address] Urea nitrogen [Mass/Vol] 32 mg/dL High 7-20 [facility] Comment on above: Performed By: #### H EMOG, CMP3M, CRP2, LDH3, FIBGN, DDI2, APTT, FERR3 #### [facility] [address] [place] [address] Potassium [Moles/Vol] 4.2 mmol/L Normal 3.5-5.1 [facility] Comment on above: Performed By: #### H EMOG, CMP3M, CRP2, LDH3, FIBGN, DDI2, APTT, FERR3 #### [facility] [address] [place] [address] Sodium [Moles/Vol] 137 mmol/L Normal 135-145 [facility] Comment on above: Performed By: #### H EMOG, CMP3M, CRP2, LDH3, FIBGN, DDI2, APTT, FERR3 #### [facility] [address] [place] [address] Albumin [Mass/Vol] 3.1 g/dL Low 3.5-5.0 [facility] Comment on above: Performed By: #### H EMOG, CMP3M, CRP2, LDH3, FIBGN, DDI2, APTT, FERR3 #### [facility] [address] [place] [address] Chloride [Moles/Vol] 113 mmol/L High 98-107 [facility] Comment on above: Performed By: #### H EMOG, CMP3M, CRP2, LDH3, FIBGN, DDI2, APTT, FERR3 #### [facility] [address] [place] [address] Comprehensive Metabolic Pane l w/ Reflex to MGon 11-01-2020 Albumin [Mass/Vol] 3.1 g/dL Low 3.5 - 5 g/dL [place] ALP [Catalytic activity/Vol] 77 U/L 38 - 126 U/L [place] ALT [Catalytic activity/Vol] 173 U/L High 0 - 49 U/L [place] Comment on above: The ALT test is perf ormed by an updated assay method. Please note that the reference intervals have been changed and are now sex specific. Anion gap [Moles/Vol] 7 mmol/L [place] AST [Catalytic activity/Vol] 135 U/L High 15 - 46 U/L [place] Bilirubin Ql (U) 0.5 mg/dL 0.2 - 1.3 mg/dL [place] Calcium [Mass/Vol] 8.7 mg/dL 8.4 - 10. 4 mg/dL [place] Chloride [Moles/Vol] 113 mmol/L High 98 - 10 7 mmol/L [place] CO2 [Moles/Vol] 18 mmol/L Low 22 - 30 mmol/L [place] Creatinine [Mass/Vol] 1.77 mg/dL High 0.52 - 1.25 mg/dL [place] EGFR IF NonAfrican Indian 41.6 mL/min Abnormal >60 [place] Comment on above: KDIGO guidelines pro [...] (S/P/Bld) [Vol rate/Area] 48.2 mL/min/{1.73_m2} Abnormal >60 [facility] Glucose [Mass/Vol] 134 mg/dL High 70 - 100 mg/dL [facility] Potassium [Moles/Vol] 4.2 mmol/L 3.5 - 5.1 mmol/L [facility] Protein [Mass/Vol] 5.6 g/dL Low 6.3 - 8.2 g/dL [facility] Sodium [Moles/Vol] 137 mmol/L 135 - 145 mmol/L [facility] Urea nitrogen [Mass/Vol] 32 mg/dL High 7 - 20 mg/dL [place] D-Dimer, Innovanceon 11-01-2 020 D-Dimer, Innovance 0.87 mg/L High 0.00-0.50 [facility] Comment on above: Result Comment: Inno quach D-Dimer values of <0.50 mg/L FEU can be used in combination with a pre-test probability model (e.g. Well's) to exclude pulmonary embolism (PE) disease, as well as an aid in the diagnosis of deep vein thrombosis (DVT). Performed By: #### H EMOG, CMP3M, CRP2, LDH3, FIBGN, DDI2, APTT, FERR3 #### [facility] [address] [place] [address] D-Dimer, Quantitativeon 10-14 D-Dimer, Quant 0.87 mg/L High 0 - 0.5 mg/L [place] Comment on above: [employer] D-Dimer va lues of <0.50 mg/L FEU can be used in combination with a pre-test probability model (e.g. Well's) to exclude pulmonary embolism (PE) disease, as well as an aid in the diagnosis of deep vein thrombosis (DVT). EKG 12 Leadon 11-01-2020 Michel, [facility] Incoming Cardiology Results From [employer] - 11/01/2020 11:02 PM EST [facility] [employer] [facility] Test Date: 2020-10-31 Pat Name: Reggie León Department: 09 Room: 468 Gender: Cirilo Peer Specialist: Jean CarlosBulmaro : 1965 Requested By: FARRUKH DIAZ Order Number: [id number] Reading MD: Usama Johnston Intervals [place] Rate: 83 P: 21 [place]: 192 QRS: -16 QRSD: 104 T: 28 QT: 404 QTc: 475 Interpretive Statements SINUS RHYTHM MULTIPLE VENTRICULAR PREMATURE COMPLEXES Electronically Signed On 11-01-2020 23:01:06 EST by Usama Nguyen [facility] [employer] [facility] Test Date: 2020-10-31 Pat Name: Reggie León Department: 09 Room: 468 Gender: M Peer Specialist: NYLA : 1965 Requested By: FARRUKH DIAZ Order Number: [id number] Reading MD: Usama Johnston Intervals [place] Rate: 83 P: 21 [place]: 192 QRS: -16 QRSD: 104 T: 28 QT: 404 QTc: 475 Interpretive Statements SINUS RHYTHM MULTIPLE VENTRICULAR PREMATURE COMPLEXES Electronically Signed On 11-01-2020 23:01:06 EST by Usama Cedillo [facility] [place] Ferritinon 11-01-2020 Ferritin [Mass/Vol] 1020 ng/mL High 18-464 [facility] [employer] [facility] Comment on above: Performed By: #### H EMOG, CMP3M, CRP2, LDH3, FIBGN, DDI2, APTT, FERR3 #### [facility] [address] [place] [address] Ferritin [Mass/Vol] 1020 ng/mL High 18 - 464 ng/mL [facility] [place] Interpretation and review of laboratory results Abnormal [facility] Year Up Test Performed by [facility], [address], [place], [place] [address] [facility] [place] Fibrinogenon 11-01-2020 Fibrinogen 420 mg/dL High 200-400 [facility] [employer] [facility] Comment on above: Performed By: #### H EMOG, CMP3M, CRP2, LDH3, FIBGN, DDI2, APTT, FERR3 #### [facility] [address] [place] [address] Fibrinogen 420 mg/dL High 200 - 400 mg/dL [place] LDHon 11-01-2020 LDH 665 U/L High 120-246 [facility] Comment on above: Performed By: #### H EMOG, CMP3M, CRP2, LDH3, FIBGN, DDI2, APTT, FERR3 #### [facility] [address] [place] [address] Lactate Dehydrogenaseon 10-14 LD 665 U/L High 120 - 246 U/L [place] Otheron 11-01-2020 Interpretation and review of laboratory results Abnormal [place] Test Performed by [facility], [facility] [address] [place] [address] [place] Interpretation and review of laboratory results Abnormal [place] Test Performed by [facility], [address] [place], [place] [address] [place] C-Reactive Proteinon 020 CRP [Mass/Vol] 19.2 mg/L High 0.0-6.0 [facility] Comment on above: Result Comment: . Performed By: #### H EMOG, CMP3M, CRP2, LDH3, FIBGN, DDI2, APTT, FERR3 #### [facility] [address] [place] [address] CRP [Mass/Vol] 19.2 mg/L High 0 - 6 mg/L [place] Comment on above: . CBCon 10-31-2020 Erythrocyte distribution width (RBC) [Ratio] 14.0 % 11.5 - 14.5 % [place] Hematocrit (Bld) [Volume fraction] 35.7 % Low 40 - 52 % [place] Hemoglobin (Bld) [Mass/Vol] 12.0 g/dL Low 13 - 18 g/dL [place] Interpretation and review of laboratory results Abnormal [place] MCH (RBC) [Entitic mass] 29.0 pg 26 - 34 pg [place] MCHC (RBC) [Mass/Vol] 33.7 % 32 - 36 % [place] MCV (RBC) [Entitic vol] 86.3 fL 80 - 98 fL [place], [place] Platelet mean volume (Bld) [Entitic vol] 7.5 fL 7.4 - 10.4 fL [place] Platelets (Bld) [#/Vol] 294 10*3/uL 140 - 440 10*3/uL [place] RBC (Bld) [#/Vol] 4.14 10*6/uL Low 4.4 - 5.9 10*6/uL [place] WBC (Bld) [#/Vol] 9.5 10*3/uL 3.6 - 10.7 10*3/uL [place] Test Performed by [facility], [address] [place], [place] [address] [place] Comp Panel with Mg Reflexon 10-31-2020 ALT [Catalytic activity/Vol] 79 U/L High 0-49 [facility] Comment on above: Result Comment: The ALT test is performed by an updated assay method. Please note that the reference intervals have been changed and are now sex specific. Performed By: #### H EMOG, CMP3M, CRP2, LDH3, FIBGN, DDI2, APTT, FERR3 #### [facility] [address] [place] [address] Calcium [Mass/Vol] 8.7 mg/dL Normal 8.4-10.4 [facility] Comment on above: Performed By: #### H EMOG, CMP3M, CRP2, LDH3, FIBGN, DDI2, APTT, FERR3 #### [facility] [address] [place] [address] Glucose [Mass/Vol] 139 mg/dL High 70-100 [facility] Comment on above: Performed By: #### H EMOG, CMP3M, CRP2, LDH3, FIBGN, DDI2, APTT, FERR3 #### [facility] [address] [place] [address] Urea nitrogen [Mass/Vol] 30 mg/dL High 7-20 [facility] Comment on above: Performed By: #### H EMOG, CMP3M, CRP2, LDH3, FIBGN, DDI2, APTT, FERR3 #### [facility] [address] [place] [address] ALP [Catalytic activity/Vol] 69 U/L Normal 38-126 [facility] Comment on above: Performed By: #### H EMOG, CMP3M, CRP2, LDH3, FIBGN, DDI2, APTT, FERR3 #### [facility] [address] [place] [address] Anion gap [Moles/Vol] 7 Normal [facility] Comment on above: Performed By: #### H EMOG, CMP3M, CRP2, LDH3, FIBGN, DDI2, APTT, FERR3 #### [facility] [address] [place] [address] AST [Catalytic activity/Vol] 67 U/L High 15-46 [facility] Comment on above: Performed By: #### H EMOG, CMP3M, CRP2, LDH3, FIBGN, DDI2, APTT, FERR3 #### [facility] [address] [place] [address] Bilirubin [Mass/Vol] 0.4 mg/dL Normal 0.2-1.3 [facility] Comment on above: Performed By: #### H EMOG, CMP3M, CRP2, LDH3, FIBGN, DDI2, APTT, FERR3 #### [facility] [address] [place] [address] CO2 [Moles/Vol] 17 mmol/L Low 22-30 [facility] Comment on above: Performed By: #### H EMOG, CMP3M, CRP2, LDH3, FIBGN, DDI2, APTT, FERR3 #### [facility] [address] [place] [address] Creatinine [Mass/Vol] 1.84 mg/dL High 0.52-1.25 [facility] Comment on above: Performed By: #### H EMOG, CMP3M, CRP2, LDH3, FIBGN, DDI2, APTT, FERR3 #### [facility] [address] [place] [address] GFR/1.73 sq M predicted among blacks MDRD (S/P/Bld) [Vol rate/Area] 46.0 mL/min/{1.73_m2} Abnormal >60 [facility] Comment on above: Performed By: #### H EMOG, CMP3M, CRP2, LDH3, FIBGN, DDI2, APTT, FERR3 #### [facility] [address] [place] [address] GFR/1.73 sq M predicted among non-blacks MDRD (S/P/Bld) [Vol rate/Area] 39.7 mL/min/{1.73_m2} Abnormal >60 [facility] Comment on above: Result Comment: KDIG [...] CRP2, LDH3, FIBGN, DDI2, APTT, FERR3 #### [facility] [address] [place] [address] Protein [Mass/Vol] 5.3 g/dL Low 6.3-8.2 [facility] Comment on above: Performed By: #### H EMOG, CMP3M, CRP2, LDH3, FIBGN, DDI2, APTT, FERR3 #### [facility] [address] [place] [address] Albumin [Mass/Vol] 2.8 g/dL Low 3.5-5.0 [facility] Comment on above: Performed By: #### H EMOG, CMP3M, CRP2, LDH3, FIBGN, DDI2, APTT, FERR3 #### [facility] [address] [place] [address] Chloride [Moles/Vol] 112 mmol/L High 98-107 [facility] Comment on above: Performed By: #### H EMOG, CMP3M, CRP2, LDH3, FIBGN, DDI2, APTT, FERR3 #### [facility] [address] [place] [id number] Sodium [Moles/Vol] 136 mmol/L Normal 135-145 [facility] Comment on above: Performed By: #### H EMOG, CMP3M, CRP2, LDH3, FIBGN, DDI2, APTT, FERR3 #### [facility] [address] [place] [id number] Potassium [Moles/Vol] 3.8 mmol/L Normal 3.5-5.1 [place], [place] Comment on above: Performed By: #### H EMOG, CMP3M, CRP2, LDH3, FIBGN, DDI2, APTT, FERR3 #### [facility] [address] [place] [address] Comprehensive Metabolic Pane l w/ Reflex to MGon 10-31-2020 Albumin [Mass/Vol] 2.8 g/dL Low 3.5 - 5 g/dL [place], [place] ALP [Catalytic activity/Vol] 69 U/L 38 - 126 U/L [place] ALT [Catalytic activity/Vol] 79 U/L High 0 - 49 U/L [place] Comment on above: The ALT test is perf ormed by an updated assay method. Please note that the reference intervals have been changed and are now sex specific. Anion gap [Moles/Vol] 7 mmol/L [place], [place] AST [Catalytic activity/Vol] 67 U/L High 15 - 46 U/L [place] Bilirubin Ql (U) 0.4 mg/dL 0.2 - 1.3 mg/dL [place] Calcium [Mass/Vol] 8.7 mg/dL 8.4 - 10. 4 mg/dL [place] Chloride [Moles/Vol] 112 mmol/L High 98 - 10 7 mmol/L [place] CO2 [Moles/Vol] 17 mmol/L Low 22 - 30 mmol/L [place] Creatinine [Mass/Vol] 1.84 mg/dL High 0.52 - 1.25 mg/dL [place] EGFR IF NonAfrican Indian 39.7 mL/min Abnormal >60 [place] Comment on above: KDIGO guidelines pro [...] (S/P/Bld) [Vol rate/Area] 46.0 mL/min/{1.73_m2} Abnormal >60 [place] Glucose [Mass/Vol] 139 mg/dL High 70 - 100 mg/dL [place] Protein [Mass/Vol] 5.3 g/dL Low 6.3 - 8.2 g/dL [place] Sodium [Moles/Vol] 136 mmol/L 135 - 145 mmol/L [place] Urea nitrogen [Mass/Vol] 30 mg/dL High 7 - 20 mg/dL [place] D-Dimer, Innovanceon 12-18-2 020 D-Dimer, Innovance 0.96 mg/L High 0.00-0.50 [facility] Comment on above: Result Comment: Inno quach D-Dimer values of <0.50 mg/L FEU can be used in combination with a pre-test probability model (e.g. Well's) to exclude pulmonary embolism (PE) disease, as well as an aid in the diagnosis of deep vein thrombosis (DVT). Performed By: #### H EMOG, CMP3M, CRP2, LDH3, FIBGN, DDI2, APTT, FERR3 #### [facility] [address] [place] [address] D-Dimer, Quantitativeon 10-14 D-Dimer, Quant 0.96 mg/L High 0 - 0.5 mg/L [place], [place] Comment on above: [employer] D-Dimer va lues of <0.50 mg/L FEU can be used in combination with a pre-test probability model (e.g. Well's) to exclude pulmonary embolism (PE) disease, as well as an aid in the diagnosis of deep vein thrombosis (DVT). Ferritinon 10-31-2020 Ferritin [Mass/Vol] 810 ng/mL High 18-464 [facility] Comment on above: Performed By: #### H EMOG, CMP3M, CRP2, LDH3, FIBGN, DDI2, APTT, FERR3 #### [facility] [address] [place] [address] Ferritin [Mass/Vol] 810 ng/mL High 18 - 464 ng/mL [place] Interpretation and review of laboratory results Abnormal [place] Test Performed by [facility], [address] [place] [address] [place] Fibrinogenon 10-31-2020 Fibrinogen 455 mg/dL High 200-400 [facility] Comment on above: Performed By: #### H EMOG, CMP3M, CRP2, LDH3, FIBGN, DDI2, APTT, FERR3 #### [facility] [address] [place] [address] Fibrinogen 455 mg/dL High 200 - 400 mg/dL [place] Hemogramon 10-31-2020 Erythrocyte distribution width (RBC) [Ratio] 14.0 % Normal 11.5-14.5 [facility] Comment on above: Performed By: #### H EMOG, CMP3M, CRP2, LDH3, FIBGN, DDI2, APTT, FERR3 #### [facility] [address] [place] [address] Hematocrit (Bld) [Volume fraction] 35.7 % Low 40.0-52.0 [facility] Comment on above: Performed By: #### H EMOG, CMP3M, CRP2, LDH3, FIBGN, DDI2, APTT, FERR3 #### [facility] [address] [place] [address] Hemoglobin (Bld) [Mass/Vol] 12.0 g/dL Low 13.0-18.0 [facility] Comment on above: Performed By: #### H EMOG, CMP3M, CRP2, LDH3, FIBGN, DDI2, APTT, FERR3 #### [facility] [address] [place] [address] MCH (RBC) [Entitic mass] 29.0 pg Normal 26.0-34.0 [facility] Comment on above: Performed By: #### H EMOG, CMP3M, CRP2, LDH3, FIBGN, DDI2, APTT, FERR3 #### [facility] [address] [place] [address] MCHC (RBC) [Mass/Vol] 33.7 % Normal 32.0-36.0 [facility] Comment on above: Performed By: #### H EMOG, CMP3M, CRP2, LDH3, FIBGN, DDI2, APTT, FERR3 #### [facility] [address] [place] [address] MCV (RBC) [Entitic vol] 86.3 fL Normal 80.0-98.0 [facility] Comment on above: Performed By: #### H EMOG, CMP3M, CRP2, LDH3, FIBGN, DDI2, APTT, FERR3 #### [facility] [address] [place] [address] Platelet mean volume (Bld) [Entitic vol] 7.5 fL Normal 7.4-10.4 [facility] Comment on above: Performed By: #### H EMOG, CMP3M, CRP2, LDH3, FIBGN, DDI2, APTT, FERR3 #### [facility] [address] [place] [address] Platelets (Bld) [#/Vol] 294 10*3/uL Normal 140-440 [facility] Comment on above: Performed By: #### H EMOG, CMP3M, CRP2, LDH3, FIBGN, DDI2, APTT, FERR3 #### [facility] [address] [place] [address] RBC (Bld) [#/Vol] 4.14 10*6/uL Low 4.40-5.90 [facility] Comment on above: Performed By: #### H EMOG, CMP3M, CRP2, LDH3, FIBGN, DDI2, APTT, FERR3 #### [facility] [address] [place] [address] WBC (Bld) [#/Vol] 9.5 10*3/uL Normal 3.6-10.7 [facility] Comment on above: Performed By: #### H EMOG, CMP3M, CRP2, LDH3, FIBGN, DDI2, APTT, FERR3 #### [facility] [address] [place] [address] LDHon 10-31-2020 LDH 572 U/L High 120-246 [facility] Comment on above: Performed By: #### H EMOG, CMP3M, CRP2, LDH3, FIBGN, DDI2, APTT, FERR3 #### [facility] [address] [place] [address] Lactate Dehydrogenaseon 10-14 LD 572 U/L High 120 - 246 U/L [facility] [place], [place] Otheron 10-31-2020 Interpretation and review of laboratory results Abnormal [facility] [place] Test Performed by [facility], [facility] [address] [place] [address] [facility] [place] Interpretation and review of laboratory results Abnormal [facility] [place] Test Performed by [facility], [facility] [address] [place] [address] [place] APTTon 10-30-2020 aPTT Coag (Bld) [Time] 47.0 s High 20.0-30.5 [facility] Comment on above: Result Comment: NOTE : The therapeutic time for Heparin anticoagulation, based on Xa activity inhibition, is an APTT of 46-80 seconds. Performed By: #### H EMOG, CMP3M, CRP2, LDH3, FIBGN, DDI2, APTT, FERR3 #### [facility] [address] [place] [address] aPTT Coag (Bld) [Time] 47 s High 20 - 30.5 s [place] Comment on above: NOTE: The therapeuti c time for Heparin anticoagulation, based on Xa activity inhibition, is an APTT of 46-80 seconds. C-Reactive Proteinon 020 CRP [Mass/Vol] 27.5 mg/L High 0.0-6.0 [facility] Comment on above: Result Comment: . Performed By: #### H EMOG, CMP3M, CRP2, LDH3, FIBGN, DDI2, APTT, FERR3 #### [facility] [address] [place] [address] CRP [Mass/Vol] 27.5 mg/L High 0 - 6 mg/L [place] Comment on above: . Comp Panel with Mg Reflexon 10-30-2020 ALT [Catalytic activity/Vol] 67 U/L High 0-49 [facility] Comment on above: Result Comment: The ALT test is performed by an updated assay method. Please note that the reference intervals have been changed and are now sex specific. Performed By: #### H EMOG, CMP3M, CRP2, LDH3, FIBGN, DDI2, APTT, FERR3 #### [facility] [address] [place] [address] Calcium [Mass/Vol] 8.6 mg/dL Normal 8.4-10.4 [facility] Comment on above: Performed By: #### H EMOG, CMP3M, CRP2, LDH3, FIBGN, DDI2, APTT, FERR3 #### [facility] [address] [place] [address] Glucose [Mass/Vol] 142 mg/dL High 70-100 [facility] Comment on above: Performed By: #### H EMOG, CMP3M, CRP2, LDH3, FIBGN, DDI2, APTT, FERR3 #### [facility] [address] [place] [address] Urea nitrogen [Mass/Vol] 30 mg/dL High 7-20 [facility] Comment on above: Performed By: #### H EMOG, CMP3M, CRP2, LDH3, FIBGN, DDI2, APTT, FERR3 #### [facility] [address] [place] [address] ALP [Catalytic activity/Vol] 75 U/L Normal 38-126 [facility] Comment on above: Performed By: #### H EMOG, CMP3M, CRP2, LDH3, FIBGN, DDI2, APTT, FERR3 #### [facility] [address] [place] [address] Anion gap [Moles/Vol] 8 Normal [facility] [place] [facility] Comment on above: Performed By: #### H EMOG, CMP3M, CRP2, LDH3, FIBGN, DDI2, APTT, FERR3 #### [facility] [address] [place] [address] AST [Catalytic activity/Vol] 67 U/L High 15-46 [facility] Comment on above: Performed By: #### H EMOG, CMP3M, CRP2, LDH3, FIBGN, DDI2, APTT, FERR3 #### [facility] [address] [place] [address] Bilirubin [Mass/Vol] 0.3 mg/dL Normal 0.2-1.3 [facility] Comment on above: Performed By: #### H EMOG, CMP3M, CRP2, LDH3, FIBGN, DDI2, APTT, FERR3 #### [facility] [address] [place] [address] CO2 [Moles/Vol] 18 mmol/L Low 22-30 [facility] Comment on above: Performed By: #### H EMOG, CMP3M, CRP2, LDH3, FIBGN, DDI2, APTT, FERR3 #### [facility] [address] [place] [address] Creatinine [Mass/Vol] 2.01 mg/dL High 0.52-1.25 [facility] Comment on above: Performed By: #### H EMOG, CMP3M, CRP2, LDH3, FIBGN, DDI2, APTT, FERR3 #### [facility] [address] [place] [address] GFR/1.73 sq M predicted among blacks MDRD (S/P/Bld) [Vol rate/Area] 41.3 mL/min/{1.73_m2} Abnormal >60 [facility] Comment on above: Performed By: #### H EMOG, CMP3M, CRP2, LDH3, FIBGN, DDI2, APTT, FERR3 #### [facility] [address] [place] [address] GFR/1.73 sq M predicted among non-blacks MDRD (S/P/Bld) [Vol rate/Area] 35.6 mL/min/{1.73_m2} Abnormal >60 [facility] Comment on above: Result Comment: KDIG [...] CRP2, LDH3, FIBGN, DDI2, APTT, FERR3 #### [facility] [address] [place] [address] Protein [Mass/Vol] 5.7 g/dL Low 6.3-8.2 [facility] Comment on above: Performed By: #### H EMOG, CMP3M, CRP2, LDH3, FIBGN, DDI2, APTT, FERR3 #### [facility] [address] [place] [address] Potassium [Moles/Vol] 4.0 mmol/L Normal 3.5-5.1 [facility] Comment on above: Performed By: #### H EMOG, CMP3M, CRP2, LDH3, FIBGN, DDI2, APTT, FERR3 #### [facility] [address] [place] [address] Albumin [Mass/Vol] 2.9 g/dL Low 3.5-5.0 [facility] Comment on above: Performed By: #### H EMOG, CMP3M, CRP2, LDH3, FIBGN, DDI2, APTT, FERR3 #### [facility] [address] [place] [address] Chloride [Moles/Vol] 114 mmol/L High 98-107 [facility] Comment on above: Performed By: #### H EMOG, CMP3M, CRP2, LDH3, FIBGN, DDI2, APTT, FERR3 #### [facility] [address] [place] [address] Sodium [Moles/Vol] 140 mmol/L Normal 135-145 [facility] Comment on above: Performed By: #### H EMOG, CMP3M, CRP2, LDH3, FIBGN, DDI2, APTT, FERR3 #### [facility] [address] [place] [address] Comprehensive Metabolic Pane l w/ Reflex to MGon 10-30-2020 Albumin [Mass/Vol] 2.9 g/dL Low 3.5 - 5 g/dL [place] ALP [Catalytic activity/Vol] 75 U/L 38 - 126 U/L [place] ALT [Catalytic activity/Vol] 67 U/L High 0 - 49 U/L [place] Comment on above: The ALT test is perf ormed by an updated assay method. Please note that the reference intervals have been changed and are now sex specific. Anion gap [Moles/Vol] 8 mmol/L [place] AST [Catalytic activity/Vol] 67 U/L High 15 - 46 U/L [place] Bilirubin Ql (U) 0.3 mg/dL 0.2 - 1.3 mg/dL [place] Calcium [Mass/Vol] 8.6 mg/dL 8.4 - 10. 4 mg/dL [place] Chloride [Moles/Vol] 114 mmol/L High 98 - 10 7 mmol/L [place] CO2 [Moles/Vol] 18 mmol/L Low 22 - 30 mmol/L [place] Creatinine [Mass/Vol] 2.01 mg/dL High 0.52 - 1.25 mg/dL [place] EGFR IF NonAfrican Indian 35.6 mL/min Abnormal >60 [place] Comment on above: KDIGO guidelines pro [...] (S/P/Bld) [Vol rate/Area] 41.3 mL/min/{1.73_m2} Abnormal >60 [place], [place] Glucose [Mass/Vol] 142 mg/dL High 70 - 100 mg/dL [place] Potassium [Moles/Vol] 4.0 mmol/L 3.5 - 5.1 mmol/L [place] Protein [Mass/Vol] 5.7 g/dL Low 6.3 - 8.2 g/dL [place] Sodium [Moles/Vol] 140 mmol/L 135 - 145 mmol/L [place] Urea nitrogen [Mass/Vol] 30 mg/dL High 7 - 20 mg/dL [place] D-Dimer, Innovanceon 020 D-Dimer, Innovance 0.89 mg/L High 0.00-0.50 [facility] Comment on above: Result Comment: Inno quach D-Dimer values of <0.50 mg/L FEU can be used in combination with a pre-test probability model (e.g. Well's) to exclude pulmonary embolism (PE) disease, as well as an aid in the diagnosis of deep vein thrombosis (DVT). Performed By: #### H EMOG, CMP3M, CRP2, LDH3, FIBGN, DDI2, APTT, FERR3 #### [facility] [address] [place] [address] D-Dimer, Quantitativeon 10-14 D-Dimer, Quant 0.89 mg/L High 0 - 0.5 mg/L [place] Comment on above: Innov[employer] D-Dimer va lues of <0.50 mg/L FEU can be used in combination with a pre-test probability model (e.g. Well's) to exclude pulmonary embolism (PE) disease, as well as an aid in the diagnosis of deep vein thrombosis (DVT). Ferritinon 10-30-2020 Ferritin [Mass/Vol] 885 ng/mL High 18-464 [facility] Comment on above: Performed By: #### H EMOG, CMP3M, CRP2, LDH3, FIBGN, DDI2, APTT, FERR3 #### [facility] [address] [place] [address] Ferritin [Mass/Vol] 885 ng/mL High 18 - 464 ng/mL [place] Interpretation and review of laboratory results Abnormal [place] Test Performed by [facility], [address] [place], [place] [address] [place] Fibrinogenon 10-30-2020 Fibrinogen 456 mg/dL High 200-400 [facility] Comment on above: Performed By: #### H EMOG, CMP3M, CRP2, LDH3, FIBGN, DDI2, APTT, FERR3 #### [facility] [address] [place] [address] Fibrinogen 456 mg/dL High 200 - 400 mg/dL [place] LDHon 10-30-2020 LDH 613 U/L High 120-246 [facility] Comment on above: Performed By: #### H EMOG, CMP3M, CRP2, LDH3, FIBGN, DDI2, APTT, FERR3 #### [facility] [address] [place] [address] Lactate Dehydrogenaseon 10-14 LD 613 U/L High 120 - 246 U/L [place] Otheron 10-30-2020 Interpretation and review of laboratory results Abnormal [place] Test Performed by [facility], [address] [place] [address] [place] Interpretation and review of laboratory results Abnormal [place] Test Performed by [facility], [address] [place] [address] [place] APTTon 10-29-2020 aPTT Coag (Bld) [Time] 35.1 s High 20.0-30.5 [facility] Comment on above: Result Comment: NOTE : The therapeutic time for Heparin anticoagulation, based on Xa activity inhibition, is an APTT of 46-80 seconds. Performed By: #### H EMOG, CMP3M, CRP2, LDH3, FIBGN, DDI2, APTT, FERR3 #### [facility] [address] [place] [address] aPTT Coag (Bld) [Time] 35.1 s High 20 - 30.5 s [place] Comment on above: NOTE: The therapeuti c time for Heparin anticoagulation, based on Xa activity inhibition, is an APTT of 46-80 seconds. C-Reactive Proteinon 020 CRP [Mass/Vol] 34.9 mg/L High 0.0-6.0 [facility] Comment on above: Result Comment: . Performed By: #### H EMOG, CMP3M, CRP2, LDH3, FIBGN, DDI2, APTT, FERR3 #### [facility] [address] [place] [address] CRP [Mass/Vol] 34.9 mg/L High 0 - 6 mg/L [place] Comment on above: . CBCon 10-29-2020 Erythrocyte distribution width (RBC) [Ratio] 14.2 % 11.5 - 14.5 % [place] Hematocrit (Bld) [Volume fraction] 37.3 % Low 40 - 52 % [place] Hemoglobin (Bld) [Mass/Vol] 12.6 g/dL Low 13 - 18 g/dL [place] Interpretation and review of laboratory results Abnormal [place] MCH (RBC) [Entitic mass] 29.2 pg 26 - 34 pg [place] MCHC (RBC) [Mass/Vol] 33.7 % 32 - 36 % [place] MCV (RBC) [Entitic vol] 86.7 fL 80 - 98 fL [place] Platelet mean volume (Bld) [Entitic vol] 7.6 fL 7.4 - 10.4 fL [place] Platelets (Bld) [#/Vol] 255 10*3/uL 140 - 440 10*3/uL [place] RBC (Bld) [#/Vol] 4.30 10*6/uL Low 4.4 - 5.9 10*6/uL [place] WBC (Bld) [#/Vol] 7.8 10*3/uL 3.6 - 10.7 10*3/uL [place] Test Performed by [facility], [address], [place], [place] [address] [place] CBC auto differentialon 10-14 Absolute Baso # 0.0 10*3/uL 0 - 0.2 10*3/uL [place] Absolute Neut # 3.5 10*3/uL 1.8 - 7 10*3/uL [place], [place] Basophils/100 WBC (Bld) 0.3 % 0 - 2 % [place] Eosinophils (Bld) [#/Vol] 0.0 10*3/uL 0 - 0.5 10*3/uL [place] Eosinophils/100 WBC (Bld) 0.0 % Low 1 - 6 % [place] Erythrocyte distribution width (RBC) [Ratio] 13.8 % 11.5 - 14.5 % [place] Granulocytes/100 WBC (Bld) 79.4 % 40 - 80 % [place] Hematocrit (Bld) [Volume fraction] 36.7 % Low 40 - 52 % [place] Hemoglobin (Bld) [Mass/Vol] 12.2 g/dL Low 13 - 18 g/dL [place] Interpretation and review of laboratory results Abnormal [place] Lymphocytes (Bld) [#/Vol] 0.4 10*3/uL Low 1 - 4.3 10*3/uL [place] Lymphocytes/100 WBC (Bld) 8.8 % Low 20 - 40 % [place] MCH (RBC) [Entitic mass] 29.1 pg 26 - 34 pg [place] MCHC (RBC) [Mass/Vol] 33.1 % 32 - 36 % [place] MCV (RBC) [Entitic vol] 87.8 fL 80 - 98 fL [place], [place] Monocytes (Bld) [#/Vol] 0.5 10*3/uL 0 - 0.8 10*3/uL [place] Monocytes/100 WBC (Bld) 11.5 % High 2 - 10 % [place] Platelet mean volume (Bld) [Entitic vol] 7.9 fL 7.4 - 10.4 fL [place] Platelets (Bld) [#/Vol] 231 10*3/uL 140 - 440 10*3/uL [place] RBC (Bld) [#/Vol] 4.19 10*6/uL Low 4.4 - 5.9 10*6/uL [place] WBC (Bld) [#/Vol] 4.4 10*3/uL 3.6 - 10.7 10*3/uL [facility], [place] Test Performed by [facility], [address] [place], [place], [place] [id number] [place] [address] COVID and Resp PCR Panelon 1 12-30-2019 COVID and Resp PCR Panel COVID and Resp PCR Panel --> Status: F NEGATIVE: No targets were detected by the [employer] Upper Respiratory Pathogens PCR Panel. _ Expected Result: Not Detected The [employer] Upper Respiratory Pathogens PCR Panel can detect the following targets: SARS-CoV-2, Adenovirus, Coronavirus 229E, Coronavirus HKU1, Coronavirus NL63, Coronavirus OC43, Human Metapneumovirus, Human Rhinovirus/Enteroviru s, Influenza A, Influenza B, Parainfluenza Virus 1, Parainfluenza Virus 2, Parainfluenza Virus 3, Parainfluenza Virus 4, Respiratory Syncytial Virus, Bordetella pertussis, Bordetella parapertussis, Chlamydia pneumoniae, Mycoplasma pneumoniae. Negative results do not preclude SARS-CoV-2 infection and should not be used as the sole basis for treatment or other patient management decisions. This assay was developed by [employer] and distributed under an Emergency Use Authorization (EUA) granted by the FDA for the qualitative detection of SARS-CoV-2 nucleic acid. Provider and patient fact sheets can be found at https://www.fda.gov/m edia/270720/download and https://www.fda.gov/m edia/757125/download. Respiratory Pathogens PCR Panel. _ Expected Result: Not Detected The [employer] Upper Respiratory Pathogens PCR Panel can detect the following targets: SARS-CoV-2, Adenovirus, Coronavirus 229E, Coronavirus HKU1, Coronavirus NL63, Coronavirus OC43, Human Metapneumovirus, Human Rhinovirus/Enteroviru s, Influenza A, Influenza B, Parainfluenza Virus 1, Parainfluenza Virus 2, Parainfluenza Virus 3, Parainfluenza Virus 4, Respiratory Syncytial Virus, Bordetella pertussis, Bordetella parapertussis, Chlamydia pneumoniae, Mycoplasma pneumoniae. Negative results do not preclude SARS-CoV-2 infection and should not be used as the sole basis for treatment or other patient management decisions. This assay was developed by [employer] and distributed under an Emergency Use Authorization (EUA) granted by the FDA for the qualitative detection of SARS-CoV-2 nucleic acid. Provider and patient fact sheets can be found at https://www.[facility].gov/m edia/732726/download and https://www.fda.gov/m edia/427610/download. Normal [facility] Comment on above: Performed By: #### H EMOG, CMP3M, CRP2, LDH3, FIBGN, DDI2, APTT, FERR3 #### [facility] [address] [place] [address] CTA CHEST W WO CONTRASTon Patient Name: REGGIE LEÓN Computed Tomography ACCESSION EXAM DATE/TIME PROCEDURE ORDERING PROVIDER [id number] 10/29/2020 16:29 EST CTA Chest w/ + w/o MD EMILY, FARRUKH MCCORMICK Contrast CPT code 65071 Q9967 Reason For Exam (CTA Chest w/ + w/o Contrast) Hypoxia and elevated D-dimer, possible COVID+ and PE? Report Reasons for examination: Hypoxia, elevated d-dimer, Covid 19. CT scan of the chest were performed with bolus contrast and high resolution scans for CT pulmonary angiographic study, with images post-processed by myself on [employer] workstation, with 3D - volume rendered CT [...] WILLIAM Transcribed Date and Time: 10/29/2020 4:51 [facility] [place], [place] Michel, [place] Incoming Radiology Results From [facility] - 10/29/2020 4:51 PM EST Patient Name: REGGIE LÓEN Computed Tomography ACCESSION EXAM DATE/TIME PROCEDURE ORDERING PROVIDER [id number] 10/29/2020 16:29 EST CTA Chest w/ + w/o MD EMILY, FARRUKH MCCORMICK Contrast CPT code 14990 Q9967 Reason For Exam (CTA Chest w/ + w/o Contrast) Hypoxia and elevated D-dimer, possible COVID+ and PE? Report Reasons for examination: Hypoxia, elevated d-dimer, Covid 19. CT scan of the chest were performed with bolus contrast and high resolution scans for CT pulmonary angiographic study, with images post-processed by myself on [employer] workstation, with 3D - volume rendered CT [...] WILLIAM Transcribed Date and Time: 10/29/2020 4:51 [facility] [place] CTA Chest w/ + w/o Contrasto n 10-29-2020 CTA Chest w/ + w/o Contrast Patient Name: REGGIE LEÓN Computed Tomography ACCESSION EXAM DATE/TIME PROCEDURE ORDERING PROVIDER [id number] 10/29/2020 16:29 EST CTA Chest w/ + w/o MD EMILY, CINDYJAQUELINE ANNY Contrast CPT code 23041 Q9967 Reason For Exam (CTA Chest w/ + w/o Contrast) Hypoxia and elevated D-dimer, possible COVID+ and PE? Report Reasons for examination: Hypoxia, elevated d-dimer, Covid 19. CT scan of the chest were performed with bolus contrast and high resolution scans for CT pulmonary angiographic study, with images post-processed by myself on [employer] workstation, with 3D - volume rendered CT [...] Transcribed Date and Time: 10/29/2020 4:51 Normal [facility] Comp Panel with Mg Reflexon 10-29-2020 ALP [Catalytic activity/Vol] 71 U/L Normal 38-126 [facility] Comment on above: Performed By: #### H EMOG, CMP3M, CRP2, LDH3, FIBGN, DDI2, APTT, FERR3 #### [facility] [address] [place] [address] ALT [Catalytic activity/Vol] 67 U/L High 0-49 [facility] Comment on above: Result Comment: The ALT test is performed by an updated assay method. Please note that the reference intervals have been changed and are now sex specific. Performed By: #### H EMOG, CMP3M, CRP2, LDH3, FIBGN, DDI2, APTT, FERR3 #### [facility] [address] [place] [address] Anion gap [Moles/Vol] 7 Normal [facility] Comment on above: Performed By: #### H EMOG, CMP3M, CRP2, LDH3, FIBGN, DDI2, APTT, FERR3 #### [facility] [address] [place] [address] AST [Catalytic activity/Vol] 88 U/L High 15-46 [facility] Comment on above: Performed By: #### H EMOG, CMP3M, CRP2, LDH3, FIBGN, DDI2, APTT, FERR3 #### [facility] [address] [place] [address] Bilirubin [Mass/Vol] 0.6 mg/dL Normal 0.2-1.3 [facility] Comment on above: Performed By: #### H EMOG, CMP3M, CRP2, LDH3, FIBGN, DDI2, APTT, FERR3 #### [facility] [address] [place] [address] Calcium [Mass/Vol] 8.9 mg/dL Normal 8.4-10.4 [facility] Comment on above: Performed By: #### H EMOG, CMP3M, CRP2, LDH3, FIBGN, DDI2, APTT, FERR3 #### [facility] [address] [place] [address] CO2 [Moles/Vol] 18 mmol/L Low 22-30 [facility] Comment on above: Performed By: #### H EMOG, CMP3M, CRP2, LDH3, FIBGN, DDI2, APTT, FERR3 #### [facility] [address] [place] [address] Creatinine [Mass/Vol] 2.24 mg/dL High 0.52-1.25 [facility] Comment on above: Performed By: #### H EMOG, CMP3M, CRP2, LDH3, FIBGN, DDI2, APTT, FERR3 #### [facility] [address] [place] [address] GFR/1.73 sq M predicted among blacks MDRD (S/P/Bld) [Vol rate/Area] 36.2 mL/min/{1.73_m2} Abnormal >60 [facility] Comment on above: Performed By: #### H EMOG, CMP3M, CRP2, LDH3, FIBGN, DDI2, APTT, FERR3 #### [facility] [address] [place] [address] GFR/1.73 sq M predicted among non-blacks MDRD (S/P/Bld) [Vol rate/Area] 31.3 mL/min/{1.73_m2} Abnormal >60 [facility] Comment on above: Result Comment: KDIG [...] CRP2, LDH3, FIBGN, DDI2, APTT, FERR3 #### [facility] [employer] [facility] [address] [place] [address] Glucose [Mass/Vol] 132 mg/dL High 70-100 [facility] Comment on above: Performed By: #### H EMOG, CMP3M, CRP2, LDH3, FIBGN, DDI2, APTT, FERR3 #### [facility] [address] [place] [address] Protein [Mass/Vol] 6.0 g/dL Low 6.3-8.2 [facility] Comment on above: Performed By: #### H EMOG, CMP3M, CRP2, LDH3, FIBGN, DDI2, APTT, FERR3 #### [facility] [address] [place] [address] Urea nitrogen [Mass/Vol] 33 mg/dL High 7-20 [facility] Comment on above: Performed By: #### H EMOG, CMP3M, CRP2, LDH3, FIBGN, DDI2, APTT, FERR3 #### [facility] [address] [place] [address] Potassium [Moles/Vol] 3.9 mmol/L Normal 3.5-5.1 [facility] Comment on above: Performed By: #### H EMOG, CMP3M, CRP2, LDH3, FIBGN, DDI2, APTT, FERR3 #### [facility] [address] [place] [address] Albumin [Mass/Vol] 3.2 g/dL Low 3.5-5.0 [facility] Comment on above: Performed By: #### H EMOG, CMP3M, CRP2, LDH3, FIBGN, DDI2, APTT, FERR3 #### [facility] [address] [place] [address] Chloride [Moles/Vol] 112 mmol/L High 98-107 [facility] Comment on above: Performed By: #### H EMOG, CMP3M, CRP2, LDH3, FIBGN, DDI2, APTT, FERR3 #### [facility] [address] [place] [address] Sodium [Moles/Vol] 137 mmol/L Normal 135-145 [facility] Comment on above: Performed By: #### H EMOG, CMP3M, CRP2, LDH3, FIBGN, DDI2, APTT, FERR3 #### [facility] [address] [place] [address] ALP [Catalytic activity/Vol] 81 U/L Normal 38-126 [facility] Comment on above: Performed By: #### H EMOG, CMP3M, CRP2, LDH3, FIBGN, DDI2, APTT, FERR3 #### [facility] [address] [place] [address] ALT [Catalytic activity/Vol] 67 U/L High 0-49 [facility] Comment on above: Result Comment: The ALT test is performed by an updated assay method. Please note that the reference intervals have been changed and are now sex specific. Performed By: #### H EMOG, CMP3M, CRP2, LDH3, FIBGN, DDI2, APTT, FERR3 #### [facility] [address] [place] [address] Anion gap [Moles/Vol] 9 Normal [facility] Comment on above: Performed By: #### H EMOG, CMP3M, CRP2, LDH3, FIBGN, DDI2, APTT, FERR3 #### [facility] [address] [place] [address] AST [Catalytic activity/Vol] 86 U/L High 15-46 [facility] Comment on above: Performed By: #### H EMOG, CMP3M, CRP2, LDH3, FIBGN, DDI2, APTT, FERR3 #### [facility] [address] [place] [address] Calcium [Mass/Vol] 8.5 mg/dL Normal 8.4-10.4 [facility] Comment on above: Performed By: #### H EMOG, CMP3M, CRP2, LDH3, FIBGN, DDI2, APTT, FERR3 #### [facility] [address] [place] [address] CO2 [Moles/Vol] 17 mmol/L Low 22-30 [facility] Comment on above: Performed By: #### H EMOG, CMP3M, CRP2, LDH3, FIBGN, DDI2, APTT, FERR3 #### [facility] [address] [place] [address] Glucose [Mass/Vol] 139 mg/dL High 70-100 [facility] Comment on above: Performed By: #### H EMOG, CMP3M, CRP2, LDH3, FIBGN, DDI2, APTT, FERR3 #### [facility] [address] [place] [address] Protein [Mass/Vol] 5.8 g/dL Low 6.3-8.2 [facility] Comment on above: Performed By: #### H EMOG, CMP3M, CRP2, LDH3, FIBGN, DDI2, APTT, FERR3 #### [facility] [address] [place] [address] Urea nitrogen [Mass/Vol] 31 mg/dL High 7-20 [facility] Comment on above: Performed By: #### H EMOG, CMP3M, CRP2, LDH3, FIBGN, DDI2, APTT, FERR3 #### [facility] [address] [place] [address] Bilirubin [Mass/Vol] 0.5 mg/dL Normal 0.2-1.3 [facility] Comment on above: Performed By: #### H EMOG, CMP3M, CRP2, LDH3, FIBGN, DDI2, APTT, FERR3 #### [facility] [address] [place] [address] Creatinine [Mass/Vol] 2.37 mg/dL High 0.52-1.25 [facility] Comment on above: Performed By: #### H EMOG, CMP3M, CRP2, LDH3, FIBGN, DDI2, APTT, FERR3 #### [facility] [address] [place] [address] GFR/1.73 sq M predicted among blacks MDRD (S/P/Bld) [Vol rate/Area] 33.9 mL/min/{1.73_m2} Abnormal >60 [facility] Comment on above: Performed By: #### H EMOG, CMP3M, CRP2, LDH3, FIBGN, DDI2, APTT, FERR3 #### [facility] [address] [place] [address] GFR/1.73 sq M predicted among non-blacks MDRD (S/P/Bld) [Vol rate/Area] 29.2 mL/min/{1.73_m2} Abnormal >60 [facility] Comment on above: Result Comment: KDIG [...] CRP2, LDH3, FIBGN, DDI2, APTT, FERR3 #### [facility] [address] [place] [address] Potassium [Moles/Vol] 4.3 mmol/L Normal 3.5-5.1 [facility] Comment on above: Performed By: #### H EMOG, CMP3M, CRP2, LDH3, FIBGN, DDI2, APTT, FERR3 #### [facility] [address] [place] [address] Sodium [Moles/Vol] 136 mmol/L Normal 135-145 [facility] Comment on above: Performed By: #### H EMOG, CMP3M, CRP2, LDH3, FIBGN, DDI2, APTT, FERR3 #### [facility] [address] [place] [address] Albumin [Mass/Vol] 3.0 g/dL Low 3.5-5.0 [facility] Comment on above: Performed By: #### H EMOG, CMP3M, CRP2, LDH3, FIBGN, DDI2, APTT, FERR3 #### [facility] [address] [place] [address] Chloride [Moles/Vol] 110 mmol/L High 98-107 [facility] Comment on above: Performed By: #### H EMOG, CMP3M, CRP2, LDH3, FIBGN, DDI2, APTT, FERR3 #### [facility] [address] [place] [address] Comprehensive Metabolic Pane l w/ Reflex to MGon 10-29-2020 Albumin [Mass/Vol] 3.2 g/dL Low 3.5 - 5 g/dL [place] ALP [Catalytic activity/Vol] 71 U/L 38 - 126 U/L [place] ALT [Catalytic activity/Vol] 67 U/L High 0 - 49 U/L [place] Comment on above: The ALT test is perf ormed by an updated assay method. Please note that the reference intervals have been changed and are now sex specific. Anion gap [Moles/Vol] 7 mmol/L [place] AST [Catalytic activity/Vol] 88 U/L High 15 - 46 U/L [place] Bilirubin Ql (U) 0.6 mg/dL 0.2 - 1.3 mg/dL [place] Calcium [Mass/Vol] 8.9 mg/dL 8.4 - 10. 4 mg/dL [place] Chloride [Moles/Vol] 112 mmol/L High 98 - 10 7 mmol/L [place] CO2 [Moles/Vol] 18 mmol/L Low 22 - 30 mmol/L [place] Creatinine [Mass/Vol] 2.24 mg/dL High 0.52 - 1.25 mg/dL [place] EGFR IF NonAfrican Indian 31.3 mL/min Abnormal >60 [place] Comment on above: KDIGO guidelines pro [...] (S/P/Bld) [Vol rate/Area] 36.2 mL/min/{1.73_m2} Abnormal >60 [place] Glucose [Mass/Vol] 132 mg/dL High 70 - 100 mg/dL [place] Interpretation and review of laboratory results Abnormal [place] Potassium [Moles/Vol] 3.9 mmol/L 3.5 - 5.1 mmol/L [place] Protein [Mass/Vol] 6.0 g/dL Low 6.3 - 8.2 g/dL [place] Sodium [Moles/Vol] 137 mmol/L 135 - 145 mmol/L [place] Urea nitrogen [Mass/Vol] 33 mg/dL High 7 - 20 mg/dL [place] Test Performed by [facility], [address] [place] [address] [place] Albumin [Mass/Vol] 3.0 g/dL Low 3.5 - 5 g/dL [place] ALP [Catalytic activity/Vol] 81 U/L 38 - 126 U/L [place] ALT [Catalytic activity/Vol] 67 U/L High 0 - 49 U/L [place] Comment on above: The ALT test is perf ormed by an updated assay method. Please note that the reference intervals have been changed and are now sex specific. Anion gap [Moles/Vol] 9 mmol/L [place] AST [Catalytic activity/Vol] 86 U/L High 15 - 46 U/L [place] Bilirubin Ql (U) 0.5 mg/dL 0.2 - 1.3 mg/dL [place] Calcium [Mass/Vol] 8.5 mg/dL 8.4 - 10. 4 mg/dL [place] Chloride [Moles/Vol] 110 mmol/L High 98 - 10 7 mmol/L [place] CO2 [Moles/Vol] 17 mmol/L Low 22 - 30 mmol/L [place] Creatinine [Mass/Vol] 2.37 mg/dL High 0.52 - 1.25 mg/dL [place] EGFR IF NonAfrican Indian 29.2 mL/min Abnormal >60 [place] Comment on above: KDIGO guidelines pro [...] (S/P/Bld) [Vol rate/Area] 33.9 mL/min/{1.73_m2} Abnormal >60 [place] Glucose [Mass/Vol] 139 mg/dL High 70 - 100 mg/dL [place] Potassium [Moles/Vol] 4.3 mmol/L 3.5 - 5.1 mmol/L [place] Protein [Mass/Vol] 5.8 g/dL Low 6.3 - 8.2 g/dL [place] Sodium [Moles/Vol] 136 mmol/L 135 - 145 mmol/L [place] Urea nitrogen [Mass/Vol] 31 mg/dL High 7 - 20 mg/dL [place] D-Dimer, Innovanceon 12-16-2 020 D-Dimer, Innovance 1.54 mg/L High 0.00-0.50 [facility] [employer] [facility] Comment on above: Result Comment: Inno quach D-Dimer values of <0.50 mg/L FEU can be used in combination with a pre-test probability model (e.g. Well's) to exclude pulmonary embolism (PE) disease, as well as an aid in the diagnosis of deep vein thrombosis (DVT). Performed By: #### H EMOG, CMP3M, CRP2, LDH3, FIBGN, DDI2, APTT, FERR3 #### [facility] [employer] [facility] [address] [place] [address] D-Dimer, Innovance 1.23 mg/L High 0.00-0.50 [facility] Comment on above: Result Comment: Inno quach D-Dimer values of <0.50 mg/L FEU can be used in combination with a pre-test probability model (e.g. Well's) to exclude pulmonary embolism (PE) disease, as well as an aid in the diagnosis of deep vein thrombosis (DVT). Performed By: #### H EMOG, CMP3M, CRP2, LDH3, FIBGN, DDI2, APTT, FERR3 #### [facility] [employer] [facility] [address] [place] [address] D-Dimer, Quantitativeon 10-14 D-Dimer, Quant 1.54 mg/L High 0 - 0.5 mg/L [facility] [place] [place] Comment on above: Innovance D-Dimer va lues of <0.50 mg/L FEU can be used in combination with a pre-test probability model (e.g. Well's) to exclude pulmonary embolism (PE) disease, as well as an aid in the diagnosis of deep vein thrombosis (DVT). D-Dimer, Quant 1.23 mg/L High 0 - 0.5 mg/L [facility] [place] [place] Comment on above: Innovance D-Dimer va lues of <0.50 mg/L FEU can be used in combination with a pre-test probability model (e.g. Well's) to exclude pulmonary embolism (PE) disease, as well as an aid in the diagnosis of deep vein thrombosis (DVT). EKG 12 Lead - Chest Painon 1 12-30-2019 Michel, [facility] Cardiology Results From Merge/Epiph[employer] - 10/29/2020 9:41 AM EST [facility] Test Date: 2020-10-28 Pat Name: Reggie León Department: 2AED Room: 468 Gender: M Peer Specialist: PARESH : 1965 Requested By: ANDREW SILVER Order Number: [id number] Reading MD: Usama Johnston Intervals [place] Rate: 85 P: 15 [place]: 184 QRS: -12 QRSD: 104 T: 73 QT: 408 QTc: 486 Interpretive Statements SINUS RHYTHM Electronically Signed On 10-29-2020 9:40:09 EST by Usama [facility] [employer] [facility] Test Date: 2020-10-28 Pat Name: Reggie León Department: 2AED Room: 468 Gender: M Peer Specialist: PARESH : 1965 Requested By: ANDREW SILVER Order Number: [id number] Reading MD: Usama Cedillo Measurements Intervals [place] Rate: 85 P: 15 [place]: 184 QRS: -12 QRSD: 104 T: 73 QT: 408 QTc: 486 Interpretive Statements SINUS RHYTHM Electronically Signed On 10-29-2020 9:40:09 EST by [facility] [place] Ferritinon 10-29-2020 Ferritin [Mass/Vol] 714 ng/mL High 18-464 [facility] [employer] [facility] Comment on above: Performed By: #### H EMOG, CMP3M, CRP2, LDH3, FIBGN, DDI2, APTT, FERR3 #### [facility] [employer] [facility] [address] [place] [address] Ferritin [Mass/Vol] 714 ng/mL High 18 - 464 ng/mL [place] Interpretation and review of laboratory results Abnormal [place] Test Performed by [facility], [address], [place] [address] [place] Fibrinogenon 10-29-2020 Fibrinogen 534 mg/dL High 200-400 [facility] [employer] [facility] Comment on above: Performed By: #### H EMOG, CMP3M, CRP2, LDH3, FIBGN, DDI2, APTT, FERR3 #### [facility] [employer] [facility] [address] [place] [address] Fibrinogen 534 mg/dL High 200 - 400 mg/dL [place] Fibrinogen 587 mg/dL High 200-400 [facility] Comment on above: Performed By: #### H EMOG, CMP3M, CRP2, LDH3, FIBGN, DDI2, APTT, FERR3 #### [facility] [address] [place] [address] Fibrinogen 587 mg/dL High 200 - 400 mg/dL [place] Hemogramon 10-29-2020 Erythrocyte distribution width (RBC) [Ratio] 14.2 % Normal 11.5-14.5 [facility] Comment on above: Performed By: #### H EMOG, CMP3M, CRP2, LDH3, FIBGN, DDI2, APTT, FERR3 #### [facility] [address] [place] [address] Hematocrit (Bld) [Volume fraction] 37.3 % Low 40.0-52.0 [facility] Comment on above: Performed By: #### H EMOG, CMP3M, CRP2, LDH3, FIBGN, DDI2, APTT, FERR3 #### [facility] [address] [place] [address] Hemoglobin (Bld) [Mass/Vol] 12.6 g/dL Low 13.0-18.0 [facility] Comment on above: Performed By: #### H EMOG, CMP3M, CRP2, LDH3, FIBGN, DDI2, APTT, FERR3 #### [facility] [address] [place] [address] MCH (RBC) [Entitic mass] 29.2 pg Normal 26.0-34.0 [facility] Comment on above: Performed By: #### H EMOG, CMP3M, CRP2, LDH3, FIBGN, DDI2, APTT, FERR3 #### [facility] [address] [place] [address] MCHC (RBC) [Mass/Vol] 33.7 % Normal 32.0-36.0 [facility] Comment on above: Performed By: #### H EMOG, CMP3M, CRP2, LDH3, FIBGN, DDI2, APTT, FERR3 #### [facility] [address] [place] [address] MCV (RBC) [Entitic vol] 86.7 fL Normal 80.0-98.0 [facility] Comment on above: Performed By: #### H EMOG, CMP3M, CRP2, LDH3, FIBGN, DDI2, APTT, FERR3 #### [facility] [address] [place] [address] Platelet mean volume (Bld) [Entitic vol] 7.6 fL Normal 7.4-10.4 [facility] Comment on above: Performed By: #### H EMOG, CMP3M, CRP2, LDH3, FIBGN, DDI2, APTT, FERR3 #### [facility] [address] [place] [address] Platelets (Bld) [#/Vol] 255 10*3/uL Normal 140-440 [facility] Comment on above: Performed By: #### H EMOG, CMP3M, CRP2, LDH3, FIBGN, DDI2, APTT, FERR3 #### [facility] [address] [place] [address] RBC (Bld) [#/Vol] 4.30 10*6/uL Low 4.40-5.90 [facility] Comment on above: Performed By: #### H EMOG, CMP3M, CRP2, LDH3, FIBGN, DDI2, APTT, FERR3 #### [facility] [address] [place] [address] WBC (Bld) [#/Vol] 7.8 10*3/uL Normal 3.6-10.7 [facility] Comment on above: Performed By: #### H EMOG, CMP3M, CRP2, LDH3, FIBGN, DDI2, APTT, FERR3 #### [facility] [address] [place] [address] Hemogram w/ Autodiffon 10-29 Abs Baso Cnt 0.0 10*3/uL Normal 0.0-0.2 [facility] Comment on above: Performed By: #### H EMOG, CMP3M, CRP2, LDH3, FIBGN, DDI2, APTT, FERR3 #### [facility] [address] [place] [address] Abs Neutrophile Cnt 3.5 10*3/uL Normal 1.8-7.0 [facility] Comment on above: Performed By: #### H EMOG, CMP3M, CRP2, LDH3, FIBGN, DDI2, APTT, FERR3 #### [facility] [address] [place] [address] Basophils/100 WBC (Bld) 0.3 % Normal 0.0-2.0 [facility] Comment on above: Performed By: #### H EMOG, CMP3M, CRP2, LDH3, FIBGN, DDI2, APTT, FERR3 #### [facility] [address] [place] [address] Eosinophils (Bld) [#/Vol] 0.0 10*3/uL Normal 0.0-0.5 [facility] Comment on above: Performed By: #### H EMOG, CMP3M, CRP2, LDH3, FIBGN, DDI2, APTT, FERR3 #### [facility] [address] [place] [address] Eosinophils/100 WBC (Bld) 0.0 % Low 1.0-6.0 [facility] Comment on above: Performed By: #### H EMOG, CMP3M, CRP2, LDH3, FIBGN, DDI2, APTT, FERR3 #### [facility] [address] [place] [address] Erythrocyte distribution width (RBC) [Ratio] 13.8 % Normal 11.5-14.5 [facility] Comment on above: Performed By: #### H EMOG, CMP3M, CRP2, LDH3, FIBGN, DDI2, APTT, FERR3 #### [facility] [address] [place] [address] Granulocytes/100 WBC (Bld) 79.4 % Normal 40.0-80.0 [facility] Comment on above: Performed By: #### H EMOG, CMP3M, CRP2, LDH3, FIBGN, DDI2, APTT, FERR3 #### [facility] [address] [place] [address] Hematocrit (Bld) [Volume fraction] 36.7 % Low 40.0-52.0 [facility] Comment on above: Performed By: #### H EMOG, CMP3M, CRP2, LDH3, FIBGN, DDI2, APTT, FERR3 #### [facility] [address] [place] [address] Hemoglobin (Bld) [Mass/Vol] 12.2 g/dL Low 13.0-18.0 [facility] Comment on above: Performed By: #### H EMOG, CMP3M, CRP2, LDH3, FIBGN, DDI2, APTT, FERR3 #### [facility] [address] [place] [address] Lymphocytes (Bld) [#/Vol] 0.4 10*3/uL Low 1.0-4.3 [facility] Comment on above: Performed By: #### H EMOG, CMP3M, CRP2, LDH3, FIBGN, DDI2, APTT, FERR3 #### [facility] [address] [place] [address] Lymphocytes/100 WBC (Bld) 8.8 % Low 20.0-40.0 [facility] Comment on above: Performed By: #### H EMOG, CMP3M, CRP2, LDH3, FIBGN, DDI2, APTT, FERR3 #### [facility] [address] [place] [address] MCH (RBC) [Entitic mass] 29.1 pg Normal 26.0-34.0 [facility] Comment on above: Performed By: #### H EMOG, CMP3M, CRP2, LDH3, FIBGN, DDI2, APTT, FERR3 #### [facility] [address] [place] [address] MCHC (RBC) [Mass/Vol] 33.1 % Normal 32.0-36.0 [facility] Comment on above: Performed By: #### H EMOG, CMP3M, CRP2, LDH3, FIBGN, DDI2, APTT, FERR3 #### [facility] [address] [place] [address] MCV (RBC) [Entitic vol] 87.8 fL Normal 80.0-98.0 [facility] Comment on above: Performed By: #### H EMOG, CMP3M, CRP2, LDH3, FIBGN, DDI2, APTT, FERR3 #### [facility] [address] [place] [address] Monocytes (Bld) [#/Vol] 0.5 10*3/uL Normal 0.0-0.8 [facility] Comment on above: Performed By: #### H EMOG, CMP3M, CRP2, LDH3, FIBGN, DDI2, APTT, FERR3 #### [facility] [address] [place] [address] Monocytes/100 WBC (Bld) 11.5 % High 2.0-10.0 [facility] Comment on above: Performed By: #### H EMOG, CMP3M, CRP2, LDH3, FIBGN, DDI2, APTT, FERR3 #### [facility] [address] [place] [address] Platelet mean volume (Bld) [Entitic vol] 7.9 fL Normal 7.4-10.4 [facility] Comment on above: Performed By: #### H EMOG, CMP3M, CRP2, LDH3, FIBGN, DDI2, APTT, FERR3 #### [facility] [address] [place] [address] Platelets (Bld) [#/Vol] 231 10*3/uL Normal 140-440 [facility] Comment on above: Performed By: #### H EMOG, CMP3M, CRP2, LDH3, FIBGN, DDI2, APTT, FERR3 #### [facility] [address] [place] [address] RBC (Bld) [#/Vol] 4.19 10*6/uL Low 4.40-5.90 [facility] Comment on above: Performed By: #### H EMOG, CMP3M, CRP2, LDH3, FIBGN, DDI2, APTT, FERR3 #### [facility] [address] [place] [address] WBC (Bld) [#/Vol] 4.4 10*3/uL Normal 3.6-10.7 [facility] Comment on above: Performed By: #### H EMOG, CMP3M, CRP2, LDH3, FIBGN, DDI2, APTT, FERR3 #### [facility] [address] [place] [address] LDHon 10-29-2020 LDH 676 U/L High 120-246 [facility] Comment on above: Performed By: #### H EMOG, CMP3M, CRP2, LDH3, FIBGN, DDI2, APTT, FERR3 #### [facility] [address] [place] [address] Lactate Dehydrogenaseon 10-14 LD 676 U/L High 120 - 246 U/L [place] Lithiumon 10-29-2020 [place] [Moles/Vol] 0.7 mmol/L Normal 0.6-1.2 [facility] Comment on above: Performed By: #### H EMOG, CMP3M, CRP2, LDH3, FIBGN, DDI2, APTT, FERR3 #### [facility] [address] [place] [address] [place] Levelon 10-29-2020 [place] Lvl 0.7 mmol/L 0.6 - 1.2 mmol/L [place], [place] Otheron 10-29-2020 Interpretation and review of laboratory results Abnormal [place], [place] Test Performed by [facility], [facility] [address] [place], [place] [id number] [place] [address] Interpretation and review of laboratory results Abnormal [place], [place] Test Performed by [facility], [facility] [address] [place], [place] [id number] [place] [address] Interpretation and review of laboratory results Abnormal [place], [place] Test Performed by [facility], [facility] [address] [place], [place] [id number] [place] [address] Procalcitoninon 10-29-2020 [place] 0.31 ng/mL Abnormal <0.10 [facility] Comment on above: Performed By: #### H EMOG, CMP3M, CRP2, LDH3, FIBGN, DDI2, APTT, FERR3 #### [facility] [address] [place] [address] Interpretation and review of laboratory results Abnormal [place], [place] Procalcitonin 0.31 ng/mL Abnormal <0.10 [place], [place] Sodium [Moles/Vol] See Below [place], [place] Comment on above: PCT <0.50 = Low risk of severe sepsis and/or septic shock. PCT >2.00 = High risk of severe sepsis and/or septic shock. Test Performed by [facility], [address] [place] [address] [place], [place] Vit D 25-OH, Totalon 020 Vit D 25-OH, Total 69 ng/mL Normal 30-100 [facility] Comment on above: Result Comment: Ther apy is based on measurement of Total 25-OHD with the following classification levels: Less than 20 ng/mL: Indicative of Vit D deficiency 20-30 ng/mL: Suggests Vit D insufficiency Optimal: Greater than or equal to 30 ng/mL Test performed by [employer]etitive Immunoassay, measuring Total Vitamin D, not individual fractions. Performed By: #### H EMOG, CMP3M, CRP2, LDH3, FIBGN, DDI2, APTT, FERR3 #### [facility] [employer] [facility] [address] [place] [address] Vitamin D 25 Hydroxyon 10-29 Vit D, 25-Hydroxy 69 ng/mL 30 - 100 ng/mL [place], [place] Comment on above: Therapy is based on measurement of Total 25-OHD with the following classification levels: Less than 20 ng/mL: Indicative of Vit D deficiency 20-30 ng/mL: Suggests Vit D insufficiency Optimal: Greater than or equal to 30 ng/mL Test performed by [employer] Immunoassay, measuring Total Vitamin D, not individual fractions. Test Performed by [employer] [facility], [address], [place], [place] [address] [place], [place] Arterial Blood Gas Respirato sarah 10-28-2020 Base Excess -5.8 mmol/L Low -3.0-3.0 [facility] Comment on above: Performed By: #### A BGE #### [facility] [address] [place] [address] CO2 [Moles/Vol] 19.3 mmol/L Low 23.0-27.0 [facility] Comment on above: Performed By: #### A BGE #### [facility] [address] [place] [address] FIO2 21 Normal [facility] Comment on above: Result Comment: Perf ormed by CLIA ID: [id number] [place], [place] Performed By: #### A BGE #### [facility] [address] [place] [address] HCO3 (Bld) [Moles/Vol] 18.3 mmol/L Low 21.0-25.0 S [facility] Comment on above: Performed By: #### A BGE #### [facility] [address] [place] [address] Oxygen (Bld) [Partial pressure] 69.8 mm[Hg] Low 80.0-100.0 [facility] Comment on above: Performed By: #### A BGE #### [facility] [address] [place] [address] Oxygen saturation in Blood 93.6 % Low 95.0-100. 0 [facility] Comment on above: Performed By: #### A BGE #### [facility] [address] [place] [address] pCO2 31.2 mm[Hg] Low 35.0-45.0 [facility] Comment on above: Performed By: #### A BGE #### [facility] [address] [place] [address] pH (Bld) 7.376 Normal 7.350-7.450 [facility] Comment on above: Performed By: #### A BGE #### [facility] [address] [place] [address] Brain Natriuretic Peptideon 10-28-2020 Natriuretic peptide B (Bld) [Mass/Vol] 47 pg/mL 0 - 125 pg/mL [facility] [place] CR Chest Portableon 10-28-20 20 CR Chest Portable Patient Name: REGGIE LEÓN Diagnostic Radiology ACCESSION EXAM DATE/TIME PROCEDURE ORDERING PROVIDER [id number] 10/28/2020 15:05 EST CR Chest Portable BALAJI SILVER DANIEL M CPT code 94660 Reason For Exam (CR Chest Portable) dyspnea Report EXAM TYPE: RADIOLOGIC EXAMINATION, CHEST, SINGLE VIEW FRONTAL (CXR SINGLE VIEW) EXAM DATE AND TIME: 10/28/2020 3:05 PM EST INDICATION: Respiratory distress COMPARISON: None TECHNIQUE: A single frontal view of the thorax was obtained and reviewed. Special views: None. IMPRESSION: 1. Lines/Tubes/Devices/H ardware: None. Please confirm position/function of devices/catheters clinically. [...] Transcribed Date and Time: 10/28/2020 3:21 Normal [facility] Comp Metabolic Panelon 10-28 ALP [Catalytic activity/Vol] 82 U/L Normal 38-126 [facility] Comment on above: Performed By: #### H EMOG, CMP3M, CRP2, LDH3, FIBGN, DDI2, APTT, FERR3 #### [facility] [address] [place] [address] ALT [Catalytic activity/Vol] 60 U/L High 0-49 [facility] Comment on above: Result Comment: The ALT test is performed by an updated assay method. Please note that the reference intervals have been changed and are now sex specific. Performed By: #### H EMOG, CMP3M, CRP2, LDH3, FIBGN, DDI2, APTT, FERR3 #### [facility] [address] [place] [address] Calcium [Mass/Vol] 8.6 mg/dL Normal 8.4-10.4 [facility] Comment on above: Performed By: #### H EMOG, CMP3M, CRP2, LDH3, FIBGN, DDI2, APTT, FERR3 #### [facility] [address] [place] [address] Glucose [Mass/Vol] 122 mg/dL High 70-100 [facility] Comment on above: Performed By: #### H EMOG, CMP3M, CRP2, LDH3, FIBGN, DDI2, APTT, FERR3 #### [facility] [address] [place] [address] Protein [Mass/Vol] 6.2 g/dL Low 6.3-8.2 [facility] Comment on above: Performed By: #### H EMOG, CMP3M, CRP2, LDH3, FIBGN, DDI2, APTT, FERR3 #### [facility] [address] [place] [address] Urea nitrogen [Mass/Vol] 35 mg/dL High 7-20 [facility] Comment on above: Performed By: #### H EMOG, CMP3M, CRP2, LDH3, FIBGN, DDI2, APTT, FERR3 #### [facility] [address] [place] [address] Anion gap [Moles/Vol] 9 Normal [facility] Comment on above: Performed By: #### H EMOG, CMP3M, CRP2, LDH3, FIBGN, DDI2, APTT, FERR3 #### [facility] [address] [place] [address] AST [Catalytic activity/Vol] 87 U/L High 15-46 [facility] Comment on above: Performed By: #### H EMOG, CMP3M, CRP2, LDH3, FIBGN, DDI2, APTT, FERR3 #### [facility] [address] [place] [address] Bilirubin [Mass/Vol] 0.6 mg/dL Normal 0.2-1.3 [facility] Comment on above: Performed By: #### H EMOG, CMP3M, CRP2, LDH3, FIBGN, DDI2, APTT, FERR3 #### [facility] [address] [place] [address] CO2 [Moles/Vol] 22 mmol/L Normal 22-30 [facility] Comment on above: Performed By: #### H EMOG, CMP3M, CRP2, LDH3, FIBGN, DDI2, APTT, FERR3 #### [facility] [address] [place] [address] Creatinine [Mass/Vol] 2.96 mg/dL High 0.52-1.25 [facility] Comment on above: Performed By: #### H EMOG, CMP3M, CRP2, LDH3, FIBGN, DDI2, APTT, FERR3 #### [facility] [address] [place] [address] GFR/1.73 sq M predicted among blacks MDRD (S/P/Bld) [Vol rate/Area] 25.9 mL/min/{1.73_m2} Abnormal >60 [facility] Comment on above: Performed By: #### H EMOG, CMP3M, CRP2, LDH3, FIBGN, DDI2, APTT, FERR3 #### [facility] [address] [place] [address] GFR/1.73 sq M predicted among non-blacks MDRD (S/P/Bld) [Vol rate/Area] 22.3 mL/min/{1.73_m2} Abnormal >60 [facility] Comment on above: Result Comment: KDIG [...] CRP2, LDH3, FIBGN, DDI2, APTT, FERR3 #### [facility] [address] [place] [address] Chloride [Moles/Vol] 101 mmol/L Normal 98-107 [facility] Comment on above: Performed By: #### H EMOG, CMP3M, CRP2, LDH3, FIBGN, DDI2, APTT, FERR3 #### [facility] [address] [place] [address] Potassium [Moles/Vol] 3.1 mmol/L Low 3.5-5.1 [facility] Comment on above: Performed By: #### H EMOG, CMP3M, CRP2, LDH3, FIBGN, DDI2, APTT, FERR3 #### [facility] [address] [place] [address] Sodium [Moles/Vol] 133 mmol/L Low 135-145 [facility] Comment on above: Performed By: #### H EMOG, CMP3M, CRP2, LDH3, FIBGN, DDI2, APTT, FERR3 #### [facility] [address] [place] [address] Albumin [Mass/Vol] 3.3 g/dL Low 3.5-5.0 [facility] Comment on above: Performed By: #### H EMOG, CMP3M, CRP2, LDH3, FIBGN, DDI2, APTT, FERR3 #### [facility] [address] [place] [address] Complete Urinalysison 2019 Amorphous [place] Few Abnormal Negative [facility] Comment on above: Result Comment: . Performed By: #### C UA2 #### [facility] [address] [place] [address] Appearance (U) Clear Normal Clear [facility] Comment on above: Result Comment: . Performed By: #### C UA2 #### [facility] [address] [place] [address] Bacteria LM.HPF (Urine sed) [#/Area] Few Abnormal Negative [facility] Comment on above: Result Comment: . Performed By: #### C UA2 #### [facility] [address] [place] [address] Bilirubin,Urine Negative Normal Negative [facility] Comment on above: Result Comment: . Performed By: #### C UA2 #### [facility] [address] [place] [address] Cast, Granular 0 - 2 Abnormal Negative [facility] Comment on above: Result Comment: . Performed By: #### C UA2 #### [facility] [address] [place] [address] Cast, Hyaline 3 - 5 Abnormal Negative [facility] Comment on above: Result Comment: . Performed By: #### C UA2 #### [facility] [address] [place] [address] Color (U) Yellow Normal Lt. Yellow [facility] Comment on above: Result Comment: . Performed By: #### C UA2 #### [facility] [address] [place] [address] Glucose Ql (U) Normal Normal Normal (<70) [facility] Comment on above: Result Comment: . Performed By: #### C UA2 #### [facility] [address] [place] [address] Ketone,Urine Negative Normal Negative [facility] Comment on above: Result Comment: . Performed By: #### C UA2 #### [facility] [address] [place] [address] Leukocytes,Urine Negative Normal Negative [facility] Comment on above: Result Comment: . Performed By: #### C UA2 #### [facility] [address] [place] [address] Mucous Threads Few Normal Negative [facility] Comment on above: Result Comment: . Performed By: #### C UA2 #### [facility] [address] [place] [address] Nitrites,Urine Negative Normal Negative [facility] Comment on above: Result Comment: . Performed By: #### C UA2 #### [facility] [address] [place] [address] Non-Squamous Epithelial < 1 Abnormal Negative [facility] Comment on above: Result Comment: . Performed By: #### C UA2 #### [facility] [address] [place] [address] Occult Blood,Urine Negative Normal Negative [facility] Comment on above: Result Comment: . Performed By: #### C UA2 #### [facility] [address] [place] [address] pH (U) 5.5 Normal 5.0-8.0 [facility] Comment on above: Result Comment: . Performed By: #### C UA2 #### [facility] [address] [place] [address] Protein (U) [Mass/Vol] 20 mg/dL Abnormal Negative [facility] Comment on above: Result Comment: . Performed By: #### C UA2 #### [facility] [address] [place] [address] RBC LM.HPF (Urine sed) [#/Area] 0 - 2 Normal 0-2 [facility] Comment on above: Result Comment: . Performed By: #### C UA2 #### [facility] [address] [place] [address] Specific [place],Urine 1.015 Normal 1.005 - 1.030 [facility] Comment on above: Result Comment: . Performed By: #### C UA2 #### [facility] [address] [place] [address] Squamous Epithelial 0 - 2 Normal 3-5 [facility] Comment on above: Result Comment: . Performed By: #### C UA2 #### [facility] [address] [place] [address] Urobilinogen,Urine Normal Normal Normal (0-1) [facility] Comment on above: Result Comment: . Performed By: #### C UA2 #### [facility] [address] [place] [address] WBC LM.HPF (Urine sed) [#/Area] 0 - 2 Normal 0-5 [facility] Comment on above: Result Comment: . Performed By: #### C UA2 #### [facility] [address] [place] [address] Comprehensive Metabolic Pane rahul 10-28-2020 Albumin [Mass/Vol] 3.3 g/dL Low 3.5 - 5 g/dL [place] ALP [Catalytic activity/Vol] 82 U/L 38 - 126 U/L [place] ALT [Catalytic activity/Vol] 60 U/L High 0 - 49 U/L [place] Comment on above: The ALT test is perf ormed by an updated assay method. Please note that the reference intervals have been changed and are now sex specific. Anion gap [Moles/Vol] 9 mmol/L [place] AST [Catalytic activity/Vol] 87 U/L High 15 - 46 U/L [place] Bilirubin Ql (U) 0.6 mg/dL 0.2 - 1.3 mg/dL [place] Calcium [Mass/Vol] 8.6 mg/dL 8.4 - 10. 4 mg/dL [place] Chloride [Moles/Vol] 101 mmol/L 98 - 10 7 mmol/L [place] CO2 [Moles/Vol] 22 mmol/L 22 - 30 mmol/L [place] Creatinine [Mass/Vol] 2.96 mg/dL High 0.52 - 1.25 mg/dL [place] EGFR IF NonAfrican Indian 22.3 mL/min Abnormal >60 [place] Comment on above: KDIGO guidelines pro [...] (S/P/Bld) [Vol rate/Area] 25.9 mL/min/{1.73_m2} Abnormal >60 [place] Glucose [Mass/Vol] 122 mg/dL High 70 - 100 mg/dL [place] Interpretation and review of laboratory results Abnormal [place] Potassium [Moles/Vol] 3.1 mmol/L Low 3.5 - 5.1 mmol/L [place] Protein [Mass/Vol] 6.2 g/dL Low 6.3 - 8.2 g/dL [place] Sodium [Moles/Vol] 133 mmol/L Low 135 - 145 mmol/L [place] Urea nitrogen [Mass/Vol] 35 mg/dL High 7 - 20 mg/dL [place] ED Provider Noteon 0 ED Provider Note Emergency [facility] Patient: Reggie León : 1965 Date [...] EKG: Sinus rhythm rate 85, QTC 486, OH interval 184, Q wave in lead 3, [...] [employer] Otf Long DO 10/28/20 1823 Normal [facility] ED Provider [facility] eMERGENCY dEPARTMENT eNCOUnter Pt Name: Reggie León Birthdate 1965 Date of evaluation: 10/28/2020 Provider: Andrew Silver APRN - BALAJI This patient was seen in conjunction with Dr. Long CHIEF COMPLAINT Chief Complaint Patient presents with ? Shortness of Breath HISTORY OF PRESENT ILLNESS (Location/Symptom, Timing/Onset,Context/ Setting, Quality, Duration, Modifying Factors, Severity) Note limiting [...] Neurological: Negative for dizziness, light-headedness and headaches. Psychiatric/Behaviora l: Negative for confusion. All other systems reviewed [...] file Gets together: Not on file Attends yarsani service: Not on file Active member of [...] History Narrative ? Not on file SCREENINGS @FLOW([id number])@ PHYSICAL EXAM (5+ for level 4, 8+ [...] Department physician in the absence of a ecologist. Please see their accompanying note for interpretation. RADIOLOGY (Per EmergencyPhysician): Interpretation per the Radiologist below, if available at the time of this note: Xr Chest Portable Result Date: 10/28/2020 Patient Name: REGGIE LEÓN Diagnostic Radiology ACCESSION EXAM DATE/TIME PROCEDURE ORDERING PROVIDER [id number] 10/28/2020 15:05 EST CR Chest Portable BALAJI SILVER DANIEL M CPT code 25457 Reason For Exam (CR Chest Portable) dyspnea Report EXAM TYPE: RADIOLOGIC EXAMINATION, CHEST, SINGLE VIEW FRONTAL (CXR SINGLE VIEW) EXAM DATE AND TIME: 10/28/2020 3:05 PM EST INDICATION: Respiratory distress COMPARISON: None TECHNIQUE: A single frontal view of the thorax was obtained and reviewed. Special views: None. IMPRESSION: 1. Lines/Tubes/Devices/H ardware: None. Please confirm position/function of devices/catheters clinically. [...] (*) eGFR 25.9 (*) EGFR IF NonAfrican Indian 22.3 (*) Albumin,Serum 3.3 (*) Total Protein 6.2 (*) ALT 60 (*) AST 87 (*) All other components within normal limits Narrative: Test Performed by [facility], [address] [place] [address] CBC WITH AUTO DIFFERENTIAL - Abnormal; Notable for the following components: Hemoglobin 12.9 (*) Hematocrit 38.1 (*) Lymphocyte % 13.6 (*) Monocytes 17.8 (*) Eosinophils 0.8 (*) Absolute Lymph # 0.6 (*) All other components within normal limits Narrative: Test Performed by [facility], [address] [place] [address] POCT ARTERIAL - Abnormal; Notable for the following components: pCO2, Arterial 31.2 (*) pO2, Arterial 69.8 (*) HCO3, Arterial 18.3 (*) Base Excess, Arterial -5.8 (*) O2 Sat, Arterial 93.6 (*) TCO2, Arterial 19.3 (*) All other components within normal limits Narrative: Test Performed by [facility], [address] [address] BRAIN NATRIURETIC PEPTIDE Narrative: Test Performed by [facility], [address] [place] [address] TROPONIN Narrative: Test Performed by [facility], [facility] [address] [place] [address] LACTIC ACID, PLASMA Narrative: Test Performed by [facility], [address] [place], [place], [place] [address] URINALYSIS POCT ARTERIAL All other labs were within normal range or not returned as of this dictation. EMERGENCY DEPARTMENT COURSE and DIFFERENTIALDIAGNOSIS /MDM: Vitals: Vitals: 10/28/20 1457 10/28/20 1745 BP: [...] Emergency Medicine Provider NICKI Bustillo CNP 10/28/20 1752 Normal [facility] [employer] Hemogram (CBC) w/Auto Diffon 10-28-2020 Absolute Baso # 0.0 10*3/uL 0 - 0.2 10*3/uL [place] Absolute Neut # 3.1 10*3/uL 1.8 - 7 10*3/uL [place] Basophils/100 WBC (Bld) 0.7 % 0 - 2 % [place] Eosinophils (Bld) [#/Vol] 0.0 10*3/uL 0 - 0.5 10*3/uL [place] Eosinophils/100 WBC (Bld) 0.8 % Low 1 - 6 % [place] Erythrocyte distribution width (RBC) [Ratio] 14.0 % 11.5 - 14.5 % [place] Granulocytes/100 WBC (Bld) 67.1 % 40 - 80 % [place] Hematocrit (Bld) [Volume fraction] 38.1 % Low 40 - 52 % [place] Hemoglobin (Bld) [Mass/Vol] 12.9 g/dL Low 13 - 18 g/dL [place] Interpretation and review of laboratory results Abnormal [place] Lymphocytes (Bld) [#/Vol] 0.6 10*3/uL Low 1 - 4.3 10*3/uL [place] Lymphocytes/100 WBC (Bld) 13.6 % Low 20 - 40 % [place] MCH (RBC) [Entitic mass] 29.2 pg 26 - 34 pg [place] MCHC (RBC) [Mass/Vol] 33.9 % 32 - 36 % [place] MCV (RBC) [Entitic vol] 86.2 fL 80 - 98 fL [place] Monocytes (Bld) [#/Vol] 0.8 10*3/uL 0 - 0.8 10*3/uL [place] Monocytes/100 WBC (Bld) 17.8 % High 2 - 10 % [place] Platelet mean volume (Bld) [Entitic vol] 7.4 fL 7.4 - 10.4 fL [place] Platelets (Bld) [#/Vol] 223 10*3/uL 140 - 440 10*3/uL [place] RBC (Bld) [#/Vol] 4.42 10*6/uL 4.4 - 5.9 10*6/uL [place] WBC (Bld) [#/Vol] 4.6 10*3/uL 3.6 - 10.7 10*3/uL [place] Test Performed by [facility], [address] [place] [address] [place] Hemogram w/ Autodiffon 10-28 Abs Baso Cnt 0.0 10*3/uL Normal 0.0-0.2 [facility] Comment on above: Performed By: #### H EMOG, CMP3M, CRP2, LDH3, FIBGN, DDI2, APTT, FERR3 #### [facility] [address] [place] [address] Abs Neutrophile Cnt 3.1 10*3/uL Normal 1.8-7.0 [facility] Comment on above: Performed By: #### H EMOG, CMP3M, CRP2, LDH3, FIBGN, DDI2, APTT, FERR3 #### [facility] [address] [place] [address] Basophils/100 WBC (Bld) 0.7 % Normal 0.0-2.0 S [facility] Comment on above: Performed By: #### H EMOG, CMP3M, CRP2, LDH3, FIBGN, DDI2, APTT, FERR3 #### [facility] [address] [place] [address] Eosinophils (Bld) [#/Vol] 0.0 10*3/uL Normal 0.0-0.5 [facility] Comment on above: Performed By: #### H EMOG, CMP3M, CRP2, LDH3, FIBGN, DDI2, APTT, FERR3 #### [facility] [address] [place] [address] Eosinophils/100 WBC (Bld) 0.8 % Low 1.0-6.0 [facility] Comment on above: Performed By: #### H EMOG, CMP3M, CRP2, LDH3, FIBGN, DDI2, APTT, FERR3 #### [facility] [address] [place] [address] Erythrocyte distribution width (RBC) [Ratio] 14.0 % Normal 11.5-14.5 [facility] Comment on above: Performed By: #### H EMOG, CMP3M, CRP2, LDH3, FIBGN, DDI2, APTT, FERR3 #### [facility] [address] [place] [address] Granulocytes/100 WBC (Bld) 67.1 % Normal 40.0-80.0 [facility] Comment on above: Performed By: #### H EMOG, CMP3M, CRP2, LDH3, FIBGN, DDI2, APTT, FERR3 #### [facility] [address] [place] [address] Hematocrit (Bld) [Volume fraction] 38.1 % Low 40.0-52.0 [facility] Comment on above: Performed By: #### H EMOG, CMP3M, CRP2, LDH3, FIBGN, DDI2, APTT, FERR3 #### [facility] [address] [place] [address] Hemoglobin (Bld) [Mass/Vol] 12.9 g/dL Low 13.0-18.0 [facility] Comment on above: Performed By: #### H EMOG, CMP3M, CRP2, LDH3, FIBGN, DDI2, APTT, FERR3 #### [facility] [address] [place] [address] Lymphocytes (Bld) [#/Vol] 0.6 10*3/uL Low 1.0-4.3 [facility] Comment on above: Performed By: #### H EMOG, CMP3M, CRP2, LDH3, FIBGN, DDI2, APTT, FERR3 #### [facility] [address] [place] [address] Lymphocytes/100 WBC (Bld) 13.6 % Low 20.0-40.0 [facility] Comment on above: Performed By: #### H EMOG, CMP3M, CRP2, LDH3, FIBGN, DDI2, APTT, FERR3 #### [facility] [address] [place] [address] MCH (RBC) [Entitic mass] 29.2 pg Normal 26.0-34.0 [facility] Comment on above: Performed By: #### H EMOG, CMP3M, CRP2, LDH3, FIBGN, DDI2, APTT, FERR3 #### [facility] [address] [place] [address] MCHC (RBC) [Mass/Vol] 33.9 % Normal 32.0-36.0 [facility] Comment on above: Performed By: #### H EMOG, CMP3M, CRP2, LDH3, FIBGN, DDI2, APTT, FERR3 #### [facility] [address] [place] [address] MCV (RBC) [Entitic vol] 86.2 fL Normal 80.0-98.0 S [facility] Comment on above: Performed By: #### H EMOG, CMP3M, CRP2, LDH3, FIBGN, DDI2, APTT, FERR3 #### [facility] [address] [place] [address] Monocytes (Bld) [#/Vol] 0.8 10*3/uL Normal 0.0-0.8 [facility] Comment on above: Performed By: #### H EMOG, CMP3M, CRP2, LDH3, FIBGN, DDI2, APTT, FERR3 #### [facility] [address] [place] [address] Monocytes/100 WBC (Bld) 17.8 % High 2.0-10.0 S [facility] Comment on above: Performed By: #### H EMOG, CMP3M, CRP2, LDH3, FIBGN, DDI2, APTT, FERR3 #### [facility] [address] [place] [address] Platelet mean volume (Bld) [Entitic vol] 7.4 fL Normal 7.4-10.4 [facility] Comment on above: Performed By: #### H EMOG, CMP3M, CRP2, LDH3, FIBGN, DDI2, APTT, FERR3 #### [facility] [address] [place] [address] Platelets (Bld) [#/Vol] 223 10*3/uL Normal 140-440 [facility] Comment on above: Performed By: #### H EMOG, CMP3M, CRP2, LDH3, FIBGN, DDI2, APTT, FERR3 #### [facility] [address] [place] [address] RBC (Bld) [#/Vol] 4.42 10*6/uL Normal 4.40-5.90 [facility] Comment on above: Performed By: #### H EMOG, CMP3M, CRP2, LDH3, FIBGN, DDI2, APTT, FERR3 #### [facility] [address] [place] [address] WBC (Bld) [#/Vol] 4.6 10*3/uL Normal 3.6-10.7 [facility] Comment on above: Performed By: #### H EMOG, CMP3M, CRP2, LDH3, FIBGN, DDI2, APTT, FERR3 #### [facility] [address] [place] [address] Lactic Acidon 10-28-2020 Lactate [Moles/Vol] 1.6 mmol/L Normal 0.7-2.0 [facility] Comment on above: Performed By: #### H EMOG, CMP3M, CRP2, LDH3, FIBGN, DDI2, APTT, FERR3 #### [facility] [address] [place] [address] Lactic Acid, Plasmaon 2019 Lactate [Moles/Vol] 1.6 mmol/L 0.7 - 2 mmol/L [facility] [place] NT pro BNPon 10-28-2020 Natriuretic peptide B (Bld) [Mass/Vol] 47 pg/mL Normal 0-125 [facility] Comment on above: Performed By: #### H EMOG, CMP3M, CRP2, LDH3, FIBGN, DDI2, APTT, FERR3 #### [facility] [address] [place] [address] Otheron 10-28-2020 Test Performed by [facility], [address] [place], [place] [id number] [place] [address] Test Performed by [facility], [address] [place], [place] [address] [place], [place] POCT Arterialon 10-28-2020 Base Excess, Arterial -5.8 mmol/L Low -3 - 3 mmol/L [place] HCO3, Arterial 18.3 mmol/L Low 21 - 25 mmol/L [place] Interpretation and review of laboratory results Abnormal [place] Oxygen saturation in Blood 93.6 % Low 95 - 100 % [place] pCO2, Arterial 31.2 mm[Hg] Low 35 - 45 mm[Hg] [place] pH, Arterial 7.376 [place] pO2, Arterial 69.8 mm[Hg] Low 80 - 100 mm[Hg] [place] Sodium [Moles/Vol] 21 mmol/L [place] Comment on above: Performed by CLIA ID : [id number] [place], [place] TCO2, Arterial 19.3 mmol/L Low 23 - 27 mmol/L [place] Test Performed by [facility], [address] [place], [place] [id number] [place] [address] Procalcitoninon 10-28-2020 Interpretation See Below Normal [facility] Comment on above: Result Comment: PCT <0.50 = Low risk of severe sepsis and/or septic shock. PCT >2.00 = High risk of severe sepsis and/or septic shock. Performed By: #### H EMOG, CMP3M, CRP2, LDH3, FIBGN, DDI2, APTT, FERR3 #### [facility] [address] [place] [address] Respiratory Panel, Molecular , with COVID-19 (Restricted: peds pts or suitable admitted adults)on 10-28-2020 Respiratory Panel Molecular, with COVID NEGATIVE: No targets were detected by the [employer] Upper Respiratory Pathogens PCR Panel. _ Expected Result: Not Detected The [employer] Upper Respiratory Pathogens PCR Panel can detect the following targets: SARS-CoV-2, Adenovirus, Coronavirus 229E, Coronavirus HKU1, Coronavirus NL63, Coronavirus OC43, Human Metapneumovirus, Human Rhinovirus/Enteroviru s, Influenza A, Influenza B, Parainfluenza Virus 1, Parainfluenza Virus 2, Parainfluenza Virus 3, Parainfluenza Virus 4, Respiratory Syncytial Virus, Bordetella pertussis, Bordetella parapertussis, Chlamydia pneumoniae, Mycoplasma pneumoniae. Negative results do not preclude SARS-CoV-2 infection and should not be used as the sole basis for treatment or other patient management decisions. This assay was developed by [employer] and distributed under an Emergency Use Authorization (EUA) granted by the FDA for the qualitative detection of SARS-CoV-2 nucleic acid. Provider and patient fact sheets can be found at https://www.fda.gov/m edia/243996/download and https://www.fda.gov/m edia/194154/download. [place], [place] Test Performed by [facility], [address] [place] [address] [place] Troponin Ion 10-28-2020 Troponin I.cardiac [Mass/Vol] ng/mL Normal 0.000-0.034 [facility] Comment on above: Result Comment: . Performed By: #### H EMOG, CMP3M, CRP2, LDH3, FIBGN, DDI2, APTT, FERR3 #### [facility] [employer] [facility] [address] [place] [address] Troponin x1on 10-28-2020 Troponin I.cardiac [Mass/Vol] ng/mL 0 - 0.034 ng/mL [place] Comment on above: . Urinalysison 10-28-2020 AMORPHOUS CRYSTAL Few Abnormal Negative /[HPF] [place] Comment on above: . Appearance (U) Clear Clear NA [place] Comment on above: . Bacteria, UA Few Abnormal Negative /[HPF] [place] Comment on above: . Bilirubin Urine Negative Negative mg/dL [place] Comment on above: . Color (U) Yellow Lt. Yellow NA [place] Comment on above: . Glucose, Ur Normal Normal (<70) mg/dL [place] Comment on above: . Granular Casts, UA 0-2 Abnormal Negative /[LPF] [place] Comment on above: . Hyaline Casts, UA 3-5 Abnormal Negative /[LPF] [place] Comment on above: . Interpretation and review of laboratory results Abnormal [place] Ketones Ql (U) Negative Negative mg/dL [place] Comment on above: . LEUKOCYTES, UA Negative Negative Mary/uL [place] Comment on above: . Mucous Threads Few Negative /[LPF] [place] Comment on above: . Nitrite, Urine Negative Negative NA [place] Comment on above: . Non-Squamous Epithelial <1 Abnormal Nega tive /[HPF] [place] Comment on above: . Occult Blood,Urine Negative Negative mg/dL [place] Comment on above: . pH (U) 5.5 [pH] [place] Comment on above: . Protein (U) [Mass/Vol] 20 mg/dL Abnormal Negative [place] Comment on above: . RBC (U) [#/Vol] 0-2 0 - 2 /[HPF] [place] Comment on above: . Specific [place], Urine 1.015 M [place] Comment on above: . Squam Epithel, UA 0-2 3 - 5 /[HPF] [place] Comment on above: . Urobilinogen, Urine Normal Normal (0-1) mg/dL [place] Comment on above: . WBC, UA 0-2 0 - 5 /[HPF] [place] Comment on above: . Test Performed by [facility], [address], [place], [place] [address] [place] XR CHEST PORTABLEon 10-28-20 Michel, [facility] Incoming Radiology Results From [facility] - 10/28/2020 3:21 PM EST Patient Name: REGGIE LEÓN Diagnostic Radiology ACCESSION EXAM DATE/TIME PROCEDURE ORDERING PROVIDER [phone] 10/28/2020 15:05 EST CR Chest Portable ADRIANNE, BALAJIANDREW Cirilo CPT code 10144 Reason For Exam (CR Chest Portable) dyspnea Report EXAM TYPE: RADIOLOGIC EXAMINATION, CHEST, SINGLE VIEW FRONTAL (CXR SINGLE VIEW) EXAM DATE AND TIME: 10/28/2020 3:05 PM EST INDICATION: Respiratory distress COMPARISON: None TECHNIQUE: A single frontal view of the thorax was obtained and reviewed. Special views: None. IMPRESSION: 1. Lines/Tubes/Devices/H ardware: None. Please confirm position/function of devices/catheters clinically. [...] JOHN Transcribed Date and Time: 10/28/2020 3:21 [place] Patient Name: REGGIE LEÓN Diagnostic Radiology ACCESSION EXAM DATE/TIME PROCEDURE ORDERING PROVIDER [id number] 10/28/2020 15:05 EST CR Chest Portable BALAJI SILVER DANIEL M CPT code 02453 Reason For Exam (CR Chest Portable) dyspnea Report EXAM TYPE: RADIOLOGIC EXAMINATION, CHEST, SINGLE VIEW FRONTAL (CXR SINGLE VIEW) EXAM DATE AND TIME: 10/28/2020 3:05 PM EST INDICATION: Respiratory distress COMPARISON: None TECHNIQUE: A single frontal view of the thorax was obtained and reviewed. Special views: None. IMPRESSION: 1. Lines/Tubes/Devices/H ardware: None. Please confirm position/function of devices/catheters clinically. [...] JOHN Transcribed Date and Time: 10/28/2020 3:21 [facility] with eGFRon 05-05-2020 Age - Reported 54 years Normal [facility] Comment on above: Performed By: #### 2 22164 #### [facility],[address] [place] [address] Anion gap [Moles/Vol] 11 mmol/L Normal 10 - 20 [facility] Comment on above: Performed By: #### 2 63347 #### [facility],[address] [place] [address] Calcium [Mass/Vol] 9.5 mg/dL Normal 8.6 - 10.2 [facility] Comment on above: Performed By: #### 2 51935 #### [facility],[address] [place] [address] CO2 [Moles/Vol] 24.7 mmol/L Normal 21.0 - 31.0 [facility] Comment on above: Performed By: #### 2 83119 #### [facility],[address] [place] [address]008 GFR/1.73 sq M predicted among non-blacks MDRD (S/P/Bld) [Vol rate/Area] 27 ML/MINUTE Low 60 - 999 [facility] Comment on above: Performed By: #### 2 61189 #### [facility],[address] [place] [address] 13104 GFR/1.73 sq M predicted among non-blacks MDRD (S/P/Bld) [Vol rate/Area] 33 ML/MINUTE Low 60 - 999 [facility] Comment on above: Result Comment: ACCO RDING TO THE NATIONAL KIDNEY DISEASE EDUCATION PROGRAM(NKDE), A NORMAL eGFR IS A VALUE GREATER THAN OR EQUAL TO 60 ML/MIN/1.73 SQ METERS. CHRONIC KIDNEY DISEASE: <60mL/MIN/1.73 SQ METERS KIDNEY FAILURE: <15mL/MIN/1.73 SQ METERS THIS TEST SHOULD ONLY BE USED FOR PATIENTS 18 YEARS OF AGE AND OLDER. Performed By: #### 2 47963 #### [address] [address] GFR/1.73 sq M predicted among non-blacks MDRD (S/P/Bld) [Vol rate/Area] Normal [facility] Comment on above: Result Comment: BASI C METABOLIC PANEL Performed By: #### 2 11082 #### [address] [address] Glucose [Mass/Vol] 113 mg/dL High 74 - 106 [facility] Comment on above: Performed By: #### 2 22007 #### [facility],[address] [place] [address] Potassium [Moles/Vol] 4.1 mmol/L Normal 3.5 - 5.1 [facility] Comment on above: Performed By: #### 2 83456 #### [facility],[address] [place] [address]271 Urea nitrogen [Mass/Vol] 24 mg/dL High 6 - 20 [facility] Comment on above: Performed By: #### 2 62676 #### [address] [address] CBC + DIFFon 05-05-2020 Basophils (Bld) [#/Vol] 0.10 x10EE3/UL Normal 0.00 - 0 .10 [facility] Comment on above: Performed By: #### 2 10294 #### [address] [address] Basophils/100 WBC (Bld) 0.9 % Normal 0.0 - 2.0 [facility] Comment on above: Performed By: #### 2 92679 #### [facility],[address] [place] [address] CBC + DIFF Normal [facility] Comment on above: Result Comment: CBC- COMPLETE BLOOD COUNT Performed By: #### 2 27089 #### [facility],[address] [place] [address] Eosinophils (Bld) [#/Vol] 0.40 x10EE3/UL Normal 0.00 - 0.50 [facility] Comment on above: Performed By: #### 2 46642 #### [facility],[address] [place] [address] Eosinophils/100 WBC (Bld) 5.4 % Normal 0.0 - 7.0 [facility] Comment on above: Performed By: #### 2 80009 #### [facility],[address] [place] [address] Erythrocyte distribution width (RBC) [Ratio] 12.7 % Normal 12.0 - 15.6 [facility] Comment on above: Performed By: #### 2 80378 #### [facility],[address] [place] [address] Hematocrit (Bld) [Volume fraction] 37.0 % Low 40.0 - 52.0 [facility] Comment on above: Performed By: #### 2 63550 #### [facility],[address] [place], [place] [address] Hemoglobin (Bld) [Mass/Vol] 13.0 g/dL Normal 13.0 - 17.5 [facility] Comment on above: Performed By: #### 2 62322 #### [facility],[address] [place], [place] [address] Lymphocytes (Bld) [#/Vol] 1.50 x10EE3/UL Normal 0.80 - 2.80 [facility] Comment on above: Performed By: #### 2 16822 #### [facility],[address] [place] [address] Lymphocytes/100 WBC (Bld) 18.7 % Low 20.0 - 45. 0 [facility] Comment on above: Performed By: #### 2 12847 #### [facility],[address] [place] [address] MANUAL DIFF N/A Normal [facility] Comment on above: Performed By: #### 2 59583 #### [facility],[address] [place] [address] MCH (RBC) [Entitic mass] 31 pg Normal 27 - 33 [facility] Comment on above: Performed By: #### 2 25554 #### [facility],[address] [place] [address] MCHC (RBC) [Mass/Vol] 35 X10 3 Normal 32 - 36 [facility] Comment on above: Performed By: #### 2 03584 #### [facility],[address] [place] [address] 39693 MCV (RBC) [Entitic vol] 87 fL Normal 81 - 98 [facility] Comment on above: Performed By: #### 2 05233 #### [facility],[address] [place] [address] Monocytes (Bld) [#/Vol] 1.20 x10EE3/UL High 0.20 - 1 .00 [facility] Comment on above: Performed By: #### 2 37486 #### [facility],[address] [place] [address]555 MONOS % 14.8 % High 0.0 - 10.0 [facility] Comment on above: Performed By: #### 2 12220 #### [facility],[address] [place] [address]80 Morphology [place]pin (Bld) [Interp] N/A Normal [facility] Comment on above: Performed By: #### 2 05656 #### [facility],[address] [place] [address] 53582 Neutrophils (Bld) [#/Vol] 4.80 x10EE3/UL Normal 1.50 - 7.10 [facility] Comment on above: Performed By: #### 2 93198 #### [facility],[address] [place] [address]39 Neutrophils/100 WBC (Bld) 60.2 % Normal 46.0 - 76. 0 [facility] Comment on above: Performed By: #### 2 61052 #### [facility],[address] [place] [address]290 Platelet mean volume (Bld) [Entitic vol] 7.2 fL Normal 6.4 - 10.5 [facility] Comment on above: Result Comment: AUTO MATED DIFFERENTIAL Performed By: #### 2 32953 #### [facility],[address] [place] [address]119 Platelets (Bld) [#/Vol] 286 x10EE3/UL Normal 150 - 450 [facility] Comment on above: Performed By: #### 2 16088 #### [facility],[address] [place] [address]307 RBC (Bld) [#/Vol] 4.24 x 10EE6/UL Low 4.50 - 6.00 [facility] Comment on above: Performed By: #### 2 72362 #### [facility],[address] [place] [address]645 WBC (Bld) [#/Vol] 8.0 x 10EE3/UL Normal 4.5 - 10.8 [facility] Comment on above: Performed By: #### 2 77266 #### [facility],[address] [place] [address]759 CULTURE URINEon 05-05-2020 CULTURE URINE CULTURE URINE _URINE CULTURE_ M I C R O B I O L O G Y R E P O R T FINAL Antimicrobial Susceptibility and Organism Identification Report Specimen Number : [id number] Requested : 05/05/20 Specimen Source : URINE Collected : 05/05/20 03:00 [place] of [place] : REJITerra HUANG Received : 05/05/20 03:00 Requesting Physician : FLORECITA ------ Patient/Specimen Tests and Comments Specimen Comments FINAL REPORT: NO GROWTH AT 48 HOURS ------ Tech : Source : URINE ID # : [id number] FINAL Report Date : / / : Collected : 05/05/20 03:00 05/07/20.1244.KLS. 05/06/20.0705.JLN. 05/07/20.1245.KLS.COM PLETE Normal [facility] Comment on above: Performed By: #### 2 58337 #### [facility],[address] [place] [address] LITHIUMon 05-05-2020 [place] [Moles/Vol] 0.9 mmol/L Normal 0.6 - 1.2 [facility] Comment on above: Performed By: #### 2 30970 #### [facility],[address] [place] [address] 53469 RENAL FUNCTION PANELon 05-05 Albumin [Mass/Vol] 3.3 g/dL Low 3.4 - 4.8 [facility] Comment on above: Performed By: #### 2 33505 #### [facility],[address] [place] [address]9937 B/C RATIO 10 ratio Normal 0 - 30 [facility] Comment on above: Performed By: #### 2 30635 #### [facility],[address] [place] [address] 39420 Chloride [Moles/Vol] 107 mmol/L Normal 98 - 107 [facility] Comment on above: Performed By: #### 2 32359 #### [facility],[address] [place] [address] 08245 Creatinine [Mass/Vol] 2.5 mg/dL High 0.7 - 1.3 [facility] Comment on above: Performed By: #### 2 43107 #### [facility],[address] [place] [address] 68922 Phosphate [Mass/Vol] 4.9 mg/dL Normal 2.7 - 4.9 [facility] Comment on above: Performed By: #### 2 74529 #### [facility],[address] [place] [address] 44410 RENAL FUNCTION PANEL Normal [facility] Comment on above: Result Comment: JESSICA L FUNCTION PANEL Performed By: #### 2 43783 #### [facility],[address] [place] [address] 06586 Sodium [Moles/Vol] 139 mmol/L Normal 136 - 145 [facility] Comment on above: Performed By: #### 2 92672 #### [facility],[address] [place] [address] 611[address] URINALYSISon 05-05-2020 Bilirubin [Mass/Vol] Negative Normal NORMAL: NEGATIVE [facility] Comment on above: Performed By: #### 2 35402 #### [facility],[address] [place] [address] 00630 Blood Negative Normal NORMAL: NEGATIVE [facility] Comment on above: Performed By: #### 2 02931 #### [facility],[address] [place] [address] 26863 Clarity (U) clear Normal NORMAL: CLEAR [facility] Comment on above: Performed By: #### 2 59577 #### [facility],[address] [place] [address] 31866 Color (U) yellow Normal NORMAL: YELLOW [facility] Comment on above: Performed By: #### 2 30781 #### [facility],[address] [place] [address] 38521 Glucose [Mass/Vol] NORM Normal NORMAL: NORMAL [facility] Comment on above: Performed By: #### 2 84722 #### [facility],[address] [place] [address] 04172 Ketone Negative Normal NORMAL: NEGATIVE [facility] Comment on above: Performed By: #### 2 07023 #### [facility],[address] [place] [address] 96158 Microscopic NOT INDICATED Normal [facility] Comment on above: Performed By: #### 2 93090 #### [facility],[address] [place] [address] Nitrite Ql (U) Negative Normal NORMAL: NEGATIVE [facility] Comment on above: Performed By: #### 2 34684 #### [facility],[address] [place] [address] pH (Bld) 6 Normal NORMAL: 5.0-8.0 [facility] Comment on above: Performed By: #### 2 97038 #### [facility],[address] [place] [address] Protein (U) [Mass/Vol] Negative Normal JENN L: NEGATIVE [facility] Comment on above: Performed By: #### 2 49208 #### [facility],[address] [place] [address] Sp [place] 1.020 Normal NORMAL: 1.010-1.030 [facility] Comment on above: Performed By: #### 2 00552 #### [facility],[address] [place] [address] Specimen type Nom (Spec) UNSPECIFIED Normal [facility] Comment on above: Performed By: #### 2 50994 #### [facility],[address] [place], [place] [id number] Urobilinog NORM Normal NORMAL: NORMAL [facility] Comment on above: Performed By: #### 2 78748 #### [facility],[address] [place] [address] 57135 WBC (Bld) [#/Vol] Negative Normal NORMAL: NEGATIVE [facility] Comment on above: Performed By: #### 2 88340 #### [facility],[address] [place], [place] [address] CBC + DIFFon 04-08-2020 Basophils (Bld) [#/Vol] 0.10 x10EE3/UL Normal 0.00 - 0 .10 [facility] Comment on above: Performed By: #### 2 38103 ####[facility],[address] [place], [place] [address] Basophils/100 WBC (Bld) 1.2 % Normal 0.0 - 2.0 [facility] Comment on above: Performed By: #### 2 82068 ####[facility],[address] [place] [address] CBC + DIFF Normal [facility] Comment on above: Result Comment: CBC- COMPLETE BLOOD COUNT Performed By: #### 2 72555 ####[facility],[address] [place] [address] Eosinophils (Bld) [#/Vol] 0.40 x10EE3/UL Normal 0.00 - 0.50 [facility] Comment on above: Performed By: #### 2 84154 ####[facility],[address] [place], [place] [address] Eosinophils/100 WBC (Bld) 4.3 % Normal 0.0 - 7.0 [facility] Comment on above: Performed By: #### 2 95704 ####[place] [address] Erythrocyte distribution width (RBC) [Ratio] 12.9 % Normal 12.0 - 15.6 [facility] Comment on above: Performed By: #### 2 00946 ####[facility],[address] [place] [address] Hematocrit (Bld) [Volume fraction] 38.7 % Low 40.0 - 52.0 [facility] Comment on above: Performed By: #### 2 71865 ####[facility],[address] [place] [address] Hemoglobin (Bld) [Mass/Vol] 13.4 g/dL Normal 13.0 - 17.5 [facility] Comment on above: Performed By: #### 2 29527 ####[facility] [place] [address]4318 Lymphocytes (Bld) [#/Vol] 1.80 x10EE3/UL Normal 0.80 - 2.80 [facility] Comment on above: Performed By: #### 2 33824 ####[facility],[address] [place] [address] 62697 Lymphocytes/100 WBC (Bld) 21.9 % Normal 20.0 - 45. 0 [facility] Comment on above: Performed By: #### 2 20651 ####[facility],[address] [place] [address] 92440 MANUAL DIFF N/A Normal [facility] Comment on above: Performed By: #### 2 71055 ####[facility],[address] [place] [address] 80997 MCH (RBC) [Entitic mass] 31 pg Normal 27 - 33 [facility] Comment on above: Performed By: #### 2 18108 ####[facility],[address] [place] [address] 79333 MCHC (RBC) [Mass/Vol] 35 X10 3 Normal 32 - 36 [facility] Comment on above: Performed By: #### 2 08545 ####[facility],[address] [place] [place] [address] 69492 MCV (RBC) [Entitic vol] 88 fL Normal 81 - 98 [facility] Comment on above: Performed By: #### 2 77298 ####[facility],[address] [place] [address] 75584 Monocytes (Bld) [#/Vol] 1.20 x10EE3/UL High 0.20 - 1 .00 [facility] Comment on above: Performed By: #### 2 87867 ####[facility],[address] [place] [address] 27330 MONOS % 14.1 % High 0.0 - 10.0 [facility] Comment on above: Performed By: #### 2 54997 ####[facility],[address] [place] [address] 68032 Morphology Crispin (Bld) [Interp] N/A Normal [facility] Comment on above: Performed By: #### 2 28060 ####[facility],[address] [place] [address] 65135 Neutrophils (Bld) [#/Vol] 4.90 x10EE3/UL Normal 1.50 - 7.10 [facility] Comment on above: Performed By: #### 2 03816 ####[facility],[address] [place] [address] 15704 Neutrophils/100 WBC (Bld) 58.5 % Normal 46.0 - 76. 0 [facility] Comment on above: Performed By: #### 2 29118 ####[facility],[address] [place] [address] 70880 Platelet mean volume (Bld) [Entitic vol] 7.4 fL Normal 6.4 - 10.5 [facility] Comment on above: Result Comment: AUTO MATED DIFFERENTIAL Performed By: #### 2 67995 ####[facility],[address] [place] [address] 93710 Platelets (Bld) [#/Vol] 268 x10EE3/UL Normal 150 - 450 [facility] Comment on above: Performed By: #### 2 13928 ####[facility],[address] [place] [address] 43679 RBC (Bld) [#/Vol] 4.41 x 10EE6/UL Low 4.50 - 6.00 [facility] Comment on above: Performed By: #### 2 07001 ####[facility],[address] [place] [address] 86568 WBC (Bld) [#/Vol] 8.3 x 10EE3/UL Normal 4.5 - 10.8 [facility] Comment on above: Performed By: #### 2 47655 ####[facility],[address] [place] [address] 08517 CULTURE URINEon 04-08-2020 CULTURE URINE CULTURE URINE _URINE CULTURE_ M I C R O B I O L O G Y R E P O R T FINAL Antimicrobial Susceptibility and Organism Identification Report Specimen Number : [id number] Requested : 04/08/20 Specimen Source : CLEAN CATCH URINE Collected : 04/08/20 06:28 [place] of [place]olation : MEME HUANG Received : 04/08/20 06:28 Requesting Physician : FLORECITA ------ Patient/Specimen Tests and Comments Specimen Comments FINAL REPORT: NO GROWTH AT 48 HOURS ------ Tech : Source : CLEAN CATCH URINE ID # : [id number] FINAL Report Date : / / : Collected : 04/08/20 06:28 04/10/20.1059.BKO. 04/09/20.1214.KLS. 04/10/20.1059.[employer] PLETE Normal [facility] Comment on above: Performed By: #### 2 08181 #### [facility],[address] [place] [place] [address] 92583 HEPATIC FUNCTION PANELon Albumin [Mass/Vol] 3.4 g/dL Normal 3.4 - 4.8 [facility] Comment on above: Performed By: #### 2 86895 ####[facility],[address] [place] [address] 24850 Performed By: #### 2 22525 ####[facility],[address] [place] [address] 99805 ALK PHOS 65 U/L Normal 38 - 126 [facility] Comment on above: Performed By: #### 2 28260 ####[facility],[address] [place] [place] [address] 31207 ALT/SGPT 16 U/L Normal 10 - 40 [facility] Comment on above: Performed By: #### 2 41904 ####[facility],[address] [place] [place] [address] 40235 AST/SGOT 10 U/L Low 13 - 39 [facility] Comment on above: Performed By: #### 2 26110 ####[facility],[address] [place] [place] [address] 80378 Bilirubin [Mass/Vol] 0.4 mg/dL Normal 0.0 - 1.5 [facility] Comment on above: Performed By: #### 2 11130 ####[facility],[address] [place] [address] 63653 Bilirubin.direct [Mass/Vol] 0.1 mg/dL Normal 0.0 - 0.1 [facility] Comment on above: Performed By: #### 2 71184 ####[facility],[address] [place] [address] HEPATIC FUNCTION PANEL Normal [facility] Comment on above: Result Comment: HEPA TIC FUNCTION PROFILE Performed By: #### 2 10217 ####[facility],[address] [place] [place] [address] 50706 Protein [Mass/Vol] 5.4 g/dL Low 6.4 - 8.3 [facility] Comment on above: Performed By: #### 2 79271 ####[facility],[address] [place] [place] [address] 03045 LITHIUMon 04-08-2020 [place] [Moles/Vol] 0.7 mmol/L Normal 0.6 - 1.2 [facility] Comment on above: Performed By: #### 2 56733 ####[facility],[address] [place], [place] [id number] RENAL FUNCTION PANELon 04-08 B/C RATIO 11 ratio Normal 0 - 30 [facility] Comment on above: Performed By: #### 2 86779 ####[facility],[address] [place] [place] [address] 38119 Calcium [Mass/Vol] 9.5 mg/dL Normal 8.6 - 10.2 [facility] Comment on above: Performed By: #### 2 67975 ####[facility],[address] [place] [place] [address] 91925 Chloride [Moles/Vol] 105 mmol/L Normal 98 - 107 [facility] Comment on above: Performed By: #### 2 07020 ####[facility],[address] [place] [address] 27344 CO2 [Moles/Vol] 25.4 mmol/L Normal 21.0 - 31.0 [facility] Comment on above: Performed By: #### 2 88470 ####[facility],[address] [place] [place] [address] 19383 Creatinine [Mass/Vol] 2.1 mg/dL High 0.7 - 1.3 [facility] Comment on above: Performed By: #### 2 92821 ####[facility],[address] [place] [place] [address] 73510 Glucose [Mass/Vol] 105 mg/dL Normal 74 - 106 [facility] Comment on above: Performed By: #### 2 12258 ####[facility],[address] [place] [address] 34448 Phosphate [Mass/Vol] 5.2 mg/dL High 2.7 - 4.9 [facility] Comment on above: Performed By: #### 2 93919 ####[facility],[address] [place] [address] 15765 Potassium [Moles/Vol] 3.8 mmol/L Normal 3.5 - 5.1 [facility] Comment on above: Performed By: #### 2 12568 ####[facility],[address] [place] [place] [address] 56858 RENAL FUNCTION PANEL Normal [facility] Comment on above: Result Comment: JESSICA L FUNCTION PANEL Performed By: #### 2 49738 ####[facility],[address] [place] [address] 33058 Sodium [Moles/Vol] 139 mmol/L Normal 136 - 145 [facility] Comment on above: Performed By: #### 2 83681 ####[facility],[address] [place] [place] [address] 12742 Urea nitrogen [Mass/Vol] 23 mg/dL High 6 - 20 [facility] Comment on above: Performed By: #### 2 60481 ####[facility],[address] [place] [address] 19956 URINALYSISon 04-08-2020 Bilirubin [Mass/Vol] Negative Normal NORMAL: NEGATIVE [facility] Comment on above: Performed By: #### 2 17776 #### [facility],[address] [place] [address] 29867 Blood Negative Normal NORMAL: NEGATIVE [facility] Comment on above: Performed By: #### 2 07868 #### [facility],[address] [place] [place] [address] 99299 Clarity (U) clear Normal NORMAL: CLEAR [facility] Comment on above: Performed By: #### 2 16676 #### [facility],[address] [place], [place] [id number] Color (U) p.yel Normal NORMAL: YELLOW [facility] Comment on above: Performed By: #### 2 98874 #### [facility],[address] [place] [address] 36623 Glucose [Mass/Vol] NORM Normal NORMAL: NORMAL [facility] Comment on above: Performed By: #### 2 11833 #### [facility],[address] [place] [place] [address] 25306 Ketone Negative Normal NORMAL: NEGATIVE [facility] Comment on above: Performed By: #### 2 26581 #### [facility],[address] [place] [address] 90127 Microscopic NOT INDICATED Normal [facility] Comment on above: Performed By: #### 2 70493 #### [facility],[address] [place] [address] 61714 Nitrite Ql (U) Negative Normal NORMAL: NEGATIVE [facility] Comment on above: Performed By: #### 2 76806 #### [facility],[address] [place] [address] 02032 pH (Bld) 6 Normal NORMAL: 5.0-8.0 [facility] Comment on above: Performed By: #### 2 30105 #### [facility],[address] [place] [place] [address] 54695 Protein (U) [Mass/Vol] Negative Normal JENN L: NEGATIVE [facility] Comment on above: Performed By: #### 2 55348 #### [facility],[address] [place] [address] 43688 Sp [place] 1.020 Normal NORMAL: 1.010-1.030 [facility] Comment on above: Performed By: #### 2 32890 #### [facility],[address] [place] [address] 62840 Specimen type Nom (Spec) Clean catch Normal [facility] Comment on above: Performed By: #### 2 20881 #### [facility],[address] [place] [address] 45741 Urobilinog NORM Normal NORMAL: NORMAL [facility] Comment on above: Performed By: #### 2 47782 #### [facility],[address] [place] [address] 21884 WBC (Bld) [#/Vol] Negative Normal NORMAL: NEGATIVE [facility] Comment on above: Performed By: #### 2 20320 #### [facility],[address] [place] [place] [address] 32857 URINE CREATININE AND PROTEIN RATIOon 04-08-2020 CREATININE UR 146.3 mg/dl Normal [facility] Comment on above: Performed By: #### 2 89380 ####[facility],[address] [place] [address] 05783 PC RATIO 0.06 mg/dL Normal 0.00 - 10.00 [facility] Comment on above: Performed By: #### 2 06899 ####[facility],[address] [place] [address] 80494 Protein (U) [Mass/Vol] 9.00 mg/dL Normal 0.00 - 10.00 [facility] Comment on above: Performed By: #### 2 91674 ####[facility],[address] [place] [address] 03793 HGB A1C [CCL]on 03-18-2020 HbA1c (Bld) [Mass fraction] 117 mg/dL Normal [facility] Comment on above: Result Comment: eAG: (Estimated average glucose) is a calculated value from HgbA1c and is field service representative of the average blood glucose level in the last 2-3 month period. [facility] [address] [place] [address] Dre Gilliland III, M.D. [id number] Performed By: #### 2 59022 ####[place] [id number] HbA1c (Bld) [Mass fraction] 5.7 % High 4.3-5.6 [facility] Comment on above: Result Comment: Amer [place] Diabetes Association guidelines indicate that patients with HgbA1c in the range 5.7-6.4% are at increased risk for development of diabetes, and intervention by lifestyle modification may be beneficial. HgbA1c greater or equal to 6.5% is considered diagnostic of diabetes. Performed By: #### 2 85277 ####[facility],[address] [place] [address] 13500 Hemoglobin A1con 03-18-2020 HbA1c (Bld) [Mass fraction] 5.7 % High 4.3-5.6 [facility] Comment on above: Performed By: #### H BA1C #### [facility] Routine Lab [address] [place] [address] HbA1c (Bld) [Mass fraction] 117 mg/dL Normal [facility] Comment on above: Performed By: #### H BA1C #### [facility] Routine Lab [address] [place] [address] LIPID PROFILEon 03-17-2020 Cholesterol [Mass/Vol] 133 mg/dL Normal 0 - 200 [facility] Comment on above: Performed By: #### 2 13098 ####[facility],[address] [place] [place] [address] 39846 Cholesterol in HDL [Mass/Vol] 29 mg/dL Low 40 - 60 [facility] Comment on above: Performed By: #### 2 16179 ####[facility],[address] [place] [place] [address] 67207 Cholesterol in LDL [Mass/Vol] 59 mg/dL Normal 0 - 129 [facility] Comment on above: Performed By: #### 2 27529 ####[facility],[address] [place] [address] 02885 Cholesterol.total/Choleste rol in HDL [Mass ratio] 4.6 {ratio} Normal 0.0 - 5.0 [facility] Comment on above: Performed By: #### 2 87968 ####[facility],[address] [place] [address] 41580 Lipid 1996 panel Normal [facility] Comment on above: Result Comment: LIPI D PROFILE Performed By: #### 2 39155 ####[facility],[address] [place] [address] 90682 Triglyceride [Mass/Vol] 224 mg/dL High 0 - 150 [facility] Comment on above: Performed By: #### 2 05203 ####[facility],[address] [place] [address] 63457 TSHon 03-17-2020 TSH Qn 0.99 uIU/ml Normal 0.34 - 5.60 [facility] Comment on above: Performed By: #### 2 04174 ####[facility],[address] [place] [address] 14216 URINE CREATININE AND PROTEIN RATIOon 03-11-2020 CREATININE UR 65.8 mg/dl Normal [facility] Comment on above: Performed By: #### 2 79314 ####[facility],[address] [place] [address] 05868 PC RATIO 0.06 mg/dL Normal 0.00 - 10.00 [facility] Comment on above: Performed By: #### 2 44206 ####[facility],[address] [place] [address] 87922 Protein (U) [Mass/Vol] mg/dL Normal 0.00 - 10.00 [facility] Comment on above: Performed By: #### 2 69702 ####[facility],[address] [place] [address] 02979 CBC + DIFFon 03-10-2020 Basophils (Bld) [#/Vol] 0.10 x10EE3/UL Normal 0.00 - 0 .10 [facility] Comment on above: Performed By: #### 2 35924 #### [facility],[address] [place] [address] 23961 Basophils/100 WBC (Bld) 1.3 % Normal 0.0 - 2.0 [facility] Comment on above: Performed By: #### 2 55549 #### [facility],[address] [place] [address] 19494 CBC + DIFF Normal [facility] Comment on above: Result Comment: CBC- COMPLETE BLOOD COUNT Performed By: #### 2 09943 #### [facility],[address] [place] [address] 39841 Eosinophils (Bld) [#/Vol] 0.40 x10EE3/UL Normal 0.00 - 0.50 [facility] Comment on above: Performed By: #### 2 26310 #### [facility],[address] [place] [address] 94934 Eosinophils/100 WBC (Bld) 5.7 % Normal 0.0 - 7.0 [facility] Comment on above: Performed By: #### 2 18488 #### [facility],[address] [place] [address] 45244 Erythrocyte distribution width (RBC) [Ratio] 13.3 % Normal 12.0 - 15.6 [facility] Comment on above: Performed By: #### 2 60240 #### [facility],[address] [place] [address] 89941 Hematocrit (Bld) [Volume fraction] 40.4 % Normal 40.0 - 52.0 [facility] Comment on above: Performed By: #### 2 00120 #### [facility],[address] [place] [address] 60391 Hemoglobin (Bld) [Mass/Vol] 13.8 g/dL Normal 13.0 - 17.5 [facility] Comment on above: Performed By: #### 2 43277 #### [facility],[address] [place] [address] 45491 Lymphocytes (Bld) [#/Vol] 1.30 x10EE3/UL Normal 0.80 - 2.80 [facility] Comment on above: Performed By: #### 2 98112 #### [facility],[address] [place] [address] 95212 Lymphocytes/100 WBC (Bld) 20.1 % Normal 20.0 - 45. 0 [facility] Comment on above: Performed By: #### 2 09616 #### [facility],[address] [place] [address] 87181 MANUAL DIFF N/A Normal [facility] Comment on above: Performed By: #### 2 01113 #### [facility],[address] [place] [address] 57470 MCH (RBC) [Entitic mass] 30 pg Normal 27 - 33 [facility] Comment on above: Performed By: #### 2 61862 #### [facility],[address] [place] [address] 54059 MCHC (RBC) [Mass/Vol] 34 X10 3 Normal 32 - 36 [facility] Comment on above: Performed By: #### 2 88374 #### [facility],[address] [place] [place] [address] 37640 MCV (RBC) [Entitic vol] 88 fL Normal 81 - 98 [facility] Comment on above: Performed By: #### 2 97868 #### [facility],[address] [place] [address] 72215 Monocytes (Bld) [#/Vol] 0.90 x10EE3/UL Normal 0.20 - 1 .00 [facility] Comment on above: Performed By: #### 2 42186 #### [facility],[address] [place] [address] 52297 MONOS % 13.7 % High 0.0 - 10.0 [facility] Comment on above: Performed By: #### 2 09223 #### [place] [address] Morphology Crispin (Bld) [Interp] N/A Normal [facility] Comment on above: Performed By: #### 2 61767 #### [address] [address] Neutrophils (Bld) [#/Vol] 3.80 x10EE3/UL Normal 1.50 - 7.10 [facility] Comment on above: Performed By: #### 2 15183 #### [place] [address] Neutrophils/100 WBC (Bld) 59.2 % Normal 46.0 - 76. 0 [facility] Comment on above: Performed By: #### 2 64456 #### [place] [address] Platelet mean volume (Bld) [Entitic vol] 7.8 fL Normal 6.4 - 10.5 [facility] Comment on above: Result Comment: AUTO MATED DIFFERENTIAL Performed By: #### 2 98726 #### [place] [address] Platelets (Bld) [#/Vol] 291 x10EE3/UL Normal 150 - 450 [facility] Comment on above: Performed By: #### 2 18797 #### [address],[place] [address] RBC (Bld) [#/Vol] 4.57 x 10EE6/UL Normal 4.50 - 6.00 [facility] Comment on above: Performed By: #### 2 91824 #### [facility],[address] [place] [address] 35594 WBC (Bld) [#/Vol] 6.4 x 10EE3/UL Normal 4.5 - 10.8 [facility] Comment on above: Performed By: #### 2 31910 #### [facility],[address] [place] [address] 00300 LITHIUMon 03-10-2020 [place] [Moles/Vol] 0.8 mmol/L Normal 0.6 - 1.2 [facility] Comment on above: Performed By: #### 2 48848 #### [facility],[address] [place], [place] [id number] RENAL FUNCTION PANEL WITH eG FRon 03-10-2020 Age - Reported 54 years Normal [facility] Comment on above: Performed By: #### 2 65299 ####[facility],[address] [place] [address] 02437 Albumin [Mass/Vol] 3.5 g/dL Normal 3.4 - 4.8 [facility] Comment on above: Performed By: #### 2 55653 ####[facility],[address] [place] [address] 21065 B/C RATIO 8 ratio Normal 0 - 30 [facility] Comment on above: Performed By: #### 2 10493 ####[facility],[address] [place] [address] 12210 Calcium [Mass/Vol] 9.4 mg/dL Normal 8.6 - 10.2 [facility] Comment on above: Performed By: #### 2 19346 ####[facility],[address] [place] [address] 60113 Chloride [Moles/Vol] 106 mmol/L Normal 98 - 107 [facility] Comment on above: Performed By: #### 2 01439 ####[facility],[address] [place] [address] 58600 CO2 [Moles/Vol] 26.1 mmol/L Normal 21.0 - 31.0 [facility] Comment on above: Performed By: #### 2 07573 ####[address] [address] Creatinine [Mass/Vol] 2.5 mg/dL High 0.7 - 1.3 [facility] Comment on above: Performed By: #### 2 72844 ####[facility],[address] [place] [address] 39506 GFR/1.73 sq M predicted among non-blacks MDRD (S/P/Bld) [Vol rate/Area] 33 ML/MINUTE Low 60 - 999 [facility] Comment on above: Result Comment: ACCO RDING TO THE NATIONAL KIDNEY DISEASE EDUCATION PROGRAM(NKDE), A NORMAL eGFR IS A VALUE GREATER THAN OR EQUAL TO 60 ML/MIN/1.73 SQ METERS. CHRONIC KIDNEY DISEASE: <60mL/MIN/1.73 SQ METERS KIDNEY FAILURE: <15mL/MIN/1.73 SQ METERS THIS TEST SHOULD ONLY BE USED FOR PATIENTS 18 YEARS OF AGE AND OLDER. Performed By: #### 2 60026 ####[facility],[address] [place] [address] 60438 GFR/1.73 sq M predicted among non-blacks MDRD (S/P/Bld) [Vol rate/Area] 27 ML/MINUTE Low 60 - 999 [facility] Comment on above: Performed By: #### 2 06104 ####[address] [address] Glucose [Mass/Vol] 114 mg/dL High 74 - 106 [facility] Comment on above: Performed By: #### 2 97041 ####[facility],[address] [place] [address] 80929 Phosphate [Mass/Vol] 4.6 mg/dL Normal 2.7 - 4.9 [facility] Comment on above: Performed By: #### 2 73767 ####[facility],[address] [place] [address] 61388 Potassium [Moles/Vol] 3.9 mmol/L Normal 3.5 - 5.1 [facility] Comment on above: Performed By: #### 2 34350 ####[facility],[address] [place] [address] 76805 RENAL FUNCTION PANEL WITH eGFR Normal [facility] Comment on above: Result Comment: JESSICA L FUNCTION PANEL Performed By: #### 2 73306 ####[facility],[address] [place] [place] [address] 45160 Sodium [Moles/Vol] 139 mmol/L Normal 136 - 145 [facility] Comment on above: Performed By: #### 2 29773 ####[facility],[address] [place] [place] [address] 63516 Urea nitrogen [Mass/Vol] 21 mg/dL High 6 - 20 [facility] Comment on above: Performed By: #### 2 00359 ####[facility],[address] [place] [address] 74225 CBC + DIFFon 02-04-2020 Basophils (Bld) [#/Vol] 0.10 x10EE3/UL Normal 0.00 - 0 .10 [facility] Comment on above: Performed By: #### 2 53322 #### [facility],[address] [place] [address] 84494 Basophils/100 WBC (Bld) 1.3 % Normal 0.0 - 2.0 [facility] Comment on above: Performed By: #### 2 08962 #### [facility],[address] [place] [place] [address] 18227 CBC + DIFF Normal [facility] Comment on above: Result Comment: CBC- COMPLETE BLOOD COUNT Performed By: #### 2 11875 #### [facility],[address] [place] [address] Eosinophils (Bld) [#/Vol] 0.40 x10EE3/UL Normal 0.00 - 0.50 [facility] Comment on above: Performed By: #### 2 00897 #### [facility],[address] [place], [place] [id number] Eosinophils/100 WBC (Bld) 5.6 % Normal 0.0 - 7.0 [facility] Comment on above: Performed By: #### 2 16593 #### [place] [address] Erythrocyte distribution width (RBC) [Ratio] 13.2 % Normal 12.0 - 15.6 [facility] Comment on above: Performed By: #### 2 38109 #### [place] [address] Hematocrit (Bld) [Volume fraction] 38.7 % Low 40.0 - 52.0 [facility] Comment on above: Performed By: #### 2 92453 #### [place] [address] Hemoglobin (Bld) [Mass/Vol] 13.2 g/dL Normal 13.0 - 17.5 [facility] Comment on above: Performed By: #### 2 54601 #### [place] [id number] Lymphocytes (Bld) [#/Vol] 1.40 x10EE3/UL Normal 0.80 - 2.80 [facility] Comment on above: Performed By: #### 2 53098 #### [place] [id number] Lymphocytes/100 WBC (Bld) 18.1 % Low 20.0 - 45. 0 [facility] Comment on above: Performed By: #### 2 05691 #### [facility],[address] [place] [address] MANUAL DIFF N/A Normal [facility] Comment on above: Performed By: #### 2 43826 #### [facility],[address] [place] [address] MCH (RBC) [Entitic mass] 30 pg Normal 27 - 33 [facility] Comment on above: Performed By: #### 2 41415 #### [facility],[address] [place] [address] MCHC (RBC) [Mass/Vol] 34 X10 3 Normal 32 - 36 [facility] Comment on above: Performed By: #### 2 99177 #### [facility],[address] [place] [address] MCV (RBC) [Entitic vol] 88 fL Normal 81 - 98 [facility] Comment on above: Performed By: #### 2 46782 #### [facility],[address] [place], [place] [address] Monocytes (Bld) [#/Vol] 1.10 x10EE3/UL High 0.20 - 1 .00 [facility] Comment on above: Performed By: #### 2 78501 #### [place] [id number] MONOS % 13.6 % High 0.0 - 10.0 [facility] Comment on above: Performed By: #### 2 81940 #### [facility],[address] [place], [place] [id number] Morphology Crispin (Bld) [Interp] N/A Normal [facility] Comment on above: Performed By: #### 2 41042 #### [place] [id number] Neutrophils (Bld) [#/Vol] 4.80 x10EE3/UL Normal 1.50 - 7.10 [facility] Comment on above: Performed By: #### 2 91136 #### [facility],[address] [place], [place] [address] Neutrophils/100 WBC (Bld) 61.4 % Normal 46.0 - 76. 0 [facility] Comment on above: Performed By: #### 2 94524 #### [facility],[address] [place] [address] Platelet mean volume (Bld) [Entitic vol] 7.7 fL Normal 6.4 - 10.5 [facility] Comment on above: Result Comment: AUTO MATED DIFFERENTIAL Performed By: #### 2 28725 #### [address] [address] Platelets (Bld) [#/Vol] 298 x10EE3/UL Normal 150 - 450 [facility] Comment on above: Performed By: #### 2 06353 #### [address] [address] RBC (Bld) [#/Vol] 4.40 x 10EE6/UL Low 4.50 - 6.00 [facility] Comment on above: Performed By: #### 2 91373 #### [address] [address] WBC (Bld) [#/Vol] 7.8 x 10EE3/UL Normal 4.5 - 10.8 [facility] Comment on above: Performed By: #### 2 37322 #### [address] [address] CULTURE URINEon 02-04-2020 CULTURE URINE CULTURE URINE _URINE CULTURE_ M I C R O B I O L O G Y R E P O R T FINAL Antimicrobial Susceptibility and Organism Identification Report Specimen Number : [id number] Requested : 02/04/20 Specimen Source : URINE Collected : 02/04/20 02:50 [place] of [place] : MEME HUANG Received : 02/04/20 02:50 Requesting Physician : FLORECITA ------ Patient/Specimen Tests and Comments Specimen Comments FINAL REPORT: NO GROWTH AT 48 HOURS ------ Tech : Source : URINE ID # : [id number] FINAL Report Date : / / : Collected : 02/04/20 02:50 02/06/20.9.ARAVINDS. 02/05/20.0910.SAIGE. 02/06/20.1208.KLS[employer] PAIGE Johnson [facility] Comment on above: Performed By: #### 2 45901 #### [facility],[address] [place] [address] 98500 RENAL FUNCTION PANEL WITH eG FRon 02-04-2020 Age - Reported 54 years Normal [facility] Comment on above: Performed By: #### 2 74397 #### [facility],[address] [place] [address] 79153 Albumin [Mass/Vol] 3.5 g/dL Normal 3.4 - 4.8 [facility] Comment on above: Performed By: #### 2 98493 #### [facility],[address] [place] [address] 12095 B/C RATIO 9 ratio Normal 0 - 30 [facility] Comment on above: Performed By: #### 2 48252 #### [facility],[address] [place] [address] 57915 Calcium [Mass/Vol] 9.4 mg/dL Normal 8.6 - 10.2 [facility] Comment on above: Performed By: #### 2 72617 #### [facility],[address] [place] [address] 46795 Chloride [Moles/Vol] 107 mmol/L Normal 98 - 107 [facility] Comment on above: Performed By: #### 2 70471 #### [facility],[address] [place] [address] 05226 CO2 [Moles/Vol] 25.6 mmol/L Normal 21.0 - 31.0 [facility] Comment on above: Performed By: #### 2 35995 #### [facility],[address] [place] [address] 81176 Creatinine [Mass/Vol] 2.4 mg/dL High 0.7 - 1.3 [facility] Comment on above: Performed By: #### 2 71332 #### [facility],[address] [place] [address] 64171 GFR/1.73 sq M predicted among non-blacks MDRD (S/P/Bld) [Vol rate/Area] 28 ML/MINUTE Low 60 - 999 [facility] Comment on above: Performed By: #### 2 00923 #### [address] [address] GFR/1.73 sq M predicted among non-blacks MDRD (S/P/Bld) [Vol rate/Area] 34 ML/MINUTE Low 60 - 999 [facility] Comment on above: Result Comment: ACCO RDING TO THE NATIONAL KIDNEY DISEASE EDUCATION PROGRAM(NKDE), A NORMAL eGFR IS A VALUE GREATER THAN OR EQUAL TO 60 ML/MIN/1.73 SQ METERS. CHRONIC KIDNEY DISEASE: <60mL/MIN/1.73 SQ METERS KIDNEY FAILURE: <15mL/MIN/1.73 SQ METERS THIS TEST SHOULD ONLY BE USED FOR PATIENTS 18 YEARS OF AGE AND OLDER. Performed By: #### 2 29631 #### [address] [address] Glucose [Mass/Vol] 114 mg/dL High 74 - 106 [facility] Comment on above: Performed By: #### 2 75849 #### [address] [address] Phosphate [Mass/Vol] 4.5 mg/dL Normal 2.7 - 4.9 [facility] Comment on above: Performed By: #### 2 24707 #### [facility],[address] [place] [address] 90730 Potassium [Moles/Vol] 3.8 mmol/L Normal 3.5 - 5.1 [facility] Comment on above: Performed By: #### 2 03633 #### [facility],[address] [place] [address] 17952 RENAL FUNCTION PANEL WITH eGFR Normal [facility] Comment on above: Result Comment: JESSICA L FUNCTION PANEL Performed By: #### 2 64931 #### [facility],[address] [place] [address] 02642 Sodium [Moles/Vol] 139 mmol/L Normal 136 - 145 [facility] Comment on above: Performed By: #### 2 67340 #### [facility],[address] [place] [place] [address] 29722 Urea nitrogen [Mass/Vol] 22 mg/dL High 6 - [facility] Comment on above: Performed By: #### 2 39257 #### [facility],[address] [place] [address] 88322 URINALYSISon 02-04-2020 Amorphous NONE Normal [facility] Comment on above: Performed By: #### 2 16418 #### [facility],[address] [place] [address] 77069 Bacteria LM.HPF (Urine sed) [#/Area] NONE Normal [facility] Comment on above: Performed By: #### 2 80870 #### [facility],[address] [place] [address] 86584 Bilirubin [Mass/Vol] Negative Normal NORMAL: NEGATIVE [facility] Comment on above: Performed By: #### 2 80539 #### [facility],[address] [place] [address] 33882 Blood Negative Normal NORMAL: NEGATIVE [facility] Comment on above: Performed By: #### 2 30707 #### [facility],[address] [place] [address] 21202 Casts LM.LPF (Urine sed) [#/Area] NONE Normal [facility] Comment on above: Performed By: #### 2 84160 #### [facility],[address] [place] [address] 68171 Clarity (U) clear Normal NORMAL: CLEAR [facility] Comment on above: Performed By: #### 2 88316 #### [facility],[address] [place] [address] 73243 Color (U) yellow Normal NORMAL: YELLOW [facility] Comment on above: Performed By: #### 2 49303 #### [facility],[address] [place] [address] 02795 Crystals LM Nom (Urine sed) NONE Normal [facility] Comment on above: Performed By: #### 2 09104 #### [facility],[address] [place] [address] 39739 Epi Cells NONE Normal [facility] Comment on above: Performed By: #### 2 94546 #### [facility],[address] [place] [address] 22018 Glucose [Mass/Vol] NORM Normal NORMAL: NORMAL [facility] Comment on above: Performed By: #### 2 98101 #### [facility],[address] [place] [address] 71521 Ketone Negative Normal NORMAL: NEGATIVE [facility] Comment on above: Performed By: #### 2 21859 #### [facility],[address] [place] [address] 89155 Microscopic SEE BELOW Normal [facility] Comment on above: Result Comment: MICR OSCOPIC Performed By: #### 2 43790 #### [facility],[address] [place] [address] 58016 Mucous NONE Normal [facility] Comment on above: Performed By: #### 2 36939 #### [facility],[address] [place] [address] 49903 Nitrite Ql (U) Negative Normal NORMAL: NEGATIVE [facility] Comment on above: Performed By: #### 2 06450 #### [facility],[address] [place] [address] 93909 pH (Bld) 6 Normal NORMAL: 5.0-8.0 [facility] Comment on above: Performed By: #### 2 97131 #### [facility],[address] [place] [address] 06812 Protein (U) [Mass/Vol] Negative Normal JENN L: NEGATIVE [facility] Comment on above: Performed By: #### 2 52837 #### [facility],[address] [place] [address] 04245 Rbc NONE Normal 0-3/hpf [facility] Comment on above: Performed By: #### 2 07811 #### [facility],[address] [place] [address] Sp [place] 1.015 Normal NORMAL: 1.010-1.030 [facility] Comment on above: Performed By: #### 2 75828 #### [facility],[address] [place] [address] Specimen type Nom (Spec) Clean catch Normal [facility] Comment on above: Performed By: #### 2 75297 #### [facility],[address] [place] [address] Urobilinog NORM Normal NORMAL: NORMAL [facility] Comment on above: Performed By: #### 2 57351 #### [facility],[address] [place] [address] Wbc 1-5 Normal 0-5/hpf [facility] Comment on above: Performed By: #### 2 93375 #### [facility],[address] [place], [place] [address] WBC (Bld) [#/Vol] 25 Abnormal NORMAL: NEGATIVE [facility] Comment on above: Performed By: #### 2 37155 #### [facility],[address] [place], [place] [address] Yeast LM Ql (Urine sed) NONE Normal [facility] Comment on above: Performed By: #### 2 85003 #### [facility],[address] [place], [place] [address] URINE CREATININE AND PROTEIN RATIOon 02-04-2020 CREATININE UR 143.6 mg/dl Normal [facility] Comment on above: Performed By: #### 2 95069 #### [facility],[address] [place], [place] [address] PC RATIO 0.05 mg/dL Normal 0.00 - 10.00 [facility] Comment on above: Performed By: #### 2 42403 #### [facility],[address] [place] [address] 89096 Protein (U) [Mass/Vol] 7.00 mg/dL Normal 0.00 - 10.00 [facility] Comment on above: Performed By: #### 2 01409 #### [facility],[address] [place] [address] 34689 ALBUMIN PLASMAon 01-07-2020 Albumin [Mass/Vol] 3.7 g/dL Normal 3.4 - 4.8 [facility] Comment on above: Performed By: #### 2 78535 #### [facility],[address] [place] [address] 23171 BMP with eGFRon 01-07-2020 Age - Reported 54 years Normal [facility] Comment on above: Performed By: #### 2 49619 #### [facility],[address] [place] [address] 87137 Anion gap [Moles/Vol] 13 mmol/L Normal 10 - 20 [facility] Comment on above: Performed By: #### 2 69823 #### [facility],[address] [place] [address] 87038 Calcium [Mass/Vol] 9.3 mg/dL Normal 8.6 - 10.2 [facility] Comment on above: Performed By: #### 2 67079 #### [facility],[address] [place] [address] 12886 Chloride [Moles/Vol] 108 mmol/L High 98 - 107 [facility] Comment on above: Performed By: #### 2 33986 #### [facility],[address] [place] [address] 99846 CO2 [Moles/Vol] 26.1 mmol/L Normal 21.0 - 31.0 [facility] Comment on above: Performed By: #### 2 85514 #### [facility],[address] [place] [address] 81912 Creatinine [Mass/Vol] 2.0 mg/dL High 0.7 - 1.3 [facility] Comment on above: Performed By: #### 2 40958 #### [facility],[address] [place] [address] 01807 GFR/1.73 sq M predicted among non-blacks MDRD (S/P/Bld) [Vol rate/Area] Normal [facility] Comment on above: Result Comment: BASI C METABOLIC PANEL Performed By: #### 2 02562 #### [facility],[address] [place] [address] 09994 GFR/1.73 sq M predicted among non-blacks MDRD (S/P/Bld) [Vol rate/Area] 42 ML/MINUTE Low 60 - 999 [facility] Comment on above: Result Comment: ACCO RDING TO THE NATIONAL KIDNEY DISEASE EDUCATION PROGRAM(NKDE), A NORMAL eGFR IS A VALUE GREATER THAN OR EQUAL TO 60 ML/MIN/1.73 SQ METERS. CHRONIC KIDNEY DISEASE: <60mL/MIN/1.73 SQ METERS KIDNEY FAILURE: <15mL/MIN/1.73 SQ METERS THIS TEST SHOULD ONLY BE USED FOR PATIENTS 18 YEARS OF AGE AND OLDER. Performed By: #### 2 80876 #### [facility],[address] [place] [address] 91669 GFR/1.73 sq M predicted among non-blacks MDRD (S/P/Bld) [Vol rate/Area] 35 ML/MINUTE Low 60 - 999 [facility] Comment on above: Performed By: #### 2 17148 #### [facility],[address] [place] [address] 82031 Glucose [Mass/Vol] 99 mg/dL Normal 74 - 106 [facility] Comment on above: Performed By: #### 2 63046 #### [facility],[address] [place] [address] 06071 Potassium [Moles/Vol] 3.8 mmol/L Normal 3.5 - 5.1 [facility] Comment on above: Performed By: #### 2 85437 #### [facility],[address] [place] [address] Sodium [Moles/Vol] 143 mmol/L Normal 136 - 145 [facility] Comment on above: Performed By: #### 2 48612 #### [facility],[address] [place] [address] Urea nitrogen [Mass/Vol] 22 mg/dL High 6 - 20 [facility] Comment on above: Performed By: #### 2 19359 #### [facility],[address] [place] [address] CBC + DIFFon 01-07-2020 Basophils (Bld) [#/Vol] 0.10 x10EE3/UL Normal 0.00 - 0 .10 [facility] Comment on above: Performed By: #### 2 05397 #### [facility],[address] [place], [place] [address] Basophils/100 WBC (Bld) 1.0 % Normal 0.0 - 2.0 [facility] Comment on above: Performed By: #### 2 21444 #### [facility],[address] [place] [address] CBC + DIFF Normal [facility] Comment on above: Result Comment: CBC- COMPLETE BLOOD COUNT Performed By: #### 2 54180 #### [facility],[address] [place] [address] Eosinophils (Bld) [#/Vol] 0.30 x10EE3/UL Normal 0.00 - 0.50 [facility] Comment on above: Performed By: #### 2 59986 #### [facility],[address] [place] [address] 32587 Eosinophils/100 WBC (Bld) 3.3 % Normal 0.0 - 7.0 [facility] Comment on above: Performed By: #### 2 12553 #### [facility],[address],[place] [address] Erythrocyte distribution width (RBC) [Ratio] 13.1 % Normal 12.0 - 15.6 [facility] Comment on above: Performed By: #### 2 77828 #### [facility],[address] [place], [place] [address] Hematocrit (Bld) [Volume fraction] 39.0 % Low 40.0 - 52.0 [facility] Comment on above: Performed By: #### 2 01796 #### [facility],[address] [place], [place] [address] Hemoglobin (Bld) [Mass/Vol] 13.4 g/dL Normal 13.0 - 17.5 [facility] Comment on above: Performed By: #### 2 48435 #### [facility],[address] [place] [address] 52545 Lymphocytes (Bld) [#/Vol] 1.90 x10EE3/UL Normal 0.80 - 2.80 [facility] Comment on above: Performed By: #### 2 27169 #### [facility],[address] [place] [address] 74926 Lymphocytes/100 WBC (Bld) 20.6 % Normal 20.0 - 45. 0 [facility] Comment on above: Performed By: #### 2 21018 #### [facility],[address] [place] [address] 78804 MANUAL DIFF N/A Normal [facility] Comment on above: Performed By: #### 2 45101 #### [facility],[address] [place] [address] 87117 MCH (RBC) [Entitic mass] 30 pg Normal 27 - 33 [facility] Comment on above: Performed By: #### 2 66430 #### [facility],[address] [place] [address] 71888 MCHC (RBC) [Mass/Vol] 34 X10 3 Normal 32 - 36 [facility] Comment on above: Performed By: #### 2 36824 #### [facility],[address] [place] [address] 62653 MCV (RBC) [Entitic vol] 88 fL Normal 81 - 98 [facility] Comment on above: Performed By: #### 2 41387 #### [facility],[address] [place] [address] 04284 Monocytes (Bld) [#/Vol] 0.90 x10EE3/UL Normal 0.20 - 1 .00 [facility] Comment on above: Performed By: #### 2 17535 #### [address] [address] MONOS % 10.0 % Normal 0.0 - 10.0 [facility] Comment on above: Performed By: #### 2 33079 #### [address] [address] Morphology Crispin (Bld) [Interp] N/A Normal [facility] Comment on above: Performed By: #### 2 61882 #### [address] [address] Neutrophils (Bld) [#/Vol] 5.90 x10EE3/UL Normal 1.50 - 7.10 [facility] Comment on above: Performed By: #### 2 10817 #### [address] [address] Neutrophils/100 WBC (Bld) 65.1 % Normal 46.0 - 76. 0 [facility] Comment on above: Performed By: #### 2 65028 #### [address] [address] Platelet mean volume (Bld) [Entitic vol] 7.7 fL Normal 6.4 - 10.5 [facility] Comment on above: Result Comment: AUTO MATED DIFFERENTIAL Performed By: #### 2 98912 #### [facility],[address] [place] [address] 35708 Platelets (Bld) [#/Vol] 260 x10EE3/UL Normal 150 - 450 [facility] Comment on above: Performed By: #### 2 38492 #### [facility],[address] [place] [address] RBC (Bld) [#/Vol] 4.41 x 10EE6/UL Low 4.50 - 6.00 [facility] Comment on above: Performed By: #### 2 24963 #### [facility],[address] [place] [place] [address] 45111 WBC (Bld) [#/Vol] 9.1 x 10EE3/UL Normal 4.5 - 10.8 [facility] Comment on above: Performed By: #### 2 08780 #### [facility],[address] [place], [place] [id number] CULTURE URINEon 01-07-2020 CULTURE URINE CULTURE URINE _URINE CULTURE_ M I C R O B I O L O G Y R E P O R T FINAL Antimicrobial Susceptibility and Organism Identification Report Specimen Number : [id number] Requested : 01/07/20 Specimen Source : CLEAN CATCH URINE Collected : 01/07/20 02:30 [employer] : MEME HUANG Received : 01/07/20 02:30 Requesting Physician : FLORECITA ------ Patient/Specimen Tests and Comments Specimen Comments FINAL REPORT: NO GROWTH AT 48 HOURS ------ Tech : Source : CLEAN CATCH URINE ID # : [id number] FINAL Report Date : / / : Collected : 01/07/20 02:30 01/09/20.1027.BKO. 01/08/20.1302.KLS. 01/09/20.1027.TerosO[employer] PLETE 01/09/20.1027.TerosO.to [facility] via fax Normal [facility] Comment on above: Performed By: #### 2 55553 #### [facility],[address] [place] [place] [address] 33683 LITHIUMon 01-07-2020 [place] [Moles/Vol] 0.6 mmol/L Normal 0.6 - 1.2 [facility] Comment on above: Performed By: #### 2 62853 #### [facility],[address] [place] [place] [address] 93967 URINALYSISon 01-07-2020 Bilirubin [Mass/Vol] Negative Normal NORMAL: NEGATIVE [facility] Comment on above: Performed By: #### 2 43839 #### [facility],[address] [place] [place] [address] 44538 Blood Negative Normal NORMAL: NEGATIVE [facility] Comment on above: Performed By: #### 2 18694 #### [facility],[address] [place] [place] [address] 57783 Clarity (U) clear Normal NORMAL: CLEAR [facility] Comment on above: Performed By: #### 2 04386 #### [facility],[address] [place] [place] [address] 35667 Color (U) p.yel Normal NORMAL: YELLOW [facility] Comment on above: Performed By: #### 2 19167 #### [facility],[address] [place], [place] [id number] Glucose [Mass/Vol] NORM Normal NORMAL: NORMAL [facility] Comment on above: Performed By: #### 2 25560 #### [facility],[address] [place] [address] 93721 Ketone Negative Normal NORMAL: NEGATIVE [facility] Comment on above: Performed By: #### 2 88280 #### [facility],[address] [place] [place] [address] 93787 Microscopic NOT INDICATED Normal [facility] Comment on above: Performed By: #### 2 27191 #### [facility],[address] [place] [place] [address] 10455 Nitrite Ql (U) Negative Normal NORMAL: NEGATIVE [facility] Comment on above: Performed By: #### 2 89923 #### [facility],[address] [place] [address] 28560 pH (Bld) 6.5 Normal NORMAL: 5.0-8.0 [facility] Comment on above: Performed By: #### 2 68857 #### [facility],[address] [place] [address] 96430 Protein (U) [Mass/Vol] Negative Normal JENN L: NEGATIVE [facility] Comment on above: Performed By: #### 2 35809 #### [facility],[address] [place] [address] Sp [place] 1.010 Normal NORMAL: 1.010-1.030 [facility] Comment on above: Performed By: #### 2 28573 #### [facility],[address] [place] [address] Specimen type Nom (Spec) Clean catch Normal [facility] Comment on above: Performed By: #### 2 47652 #### [facility],[address] [place] [address] Urobilinog NORM Normal NORMAL: NORMAL [facility] Comment on above: Performed By: #### 2 26725 #### [facility],[address] [place] [address] WBC (Bld) [#/Vol] Negative Normal NORMAL: NEGATIVE [facility] Comment on above: Performed By: #### 2 81948 #### [facility],[address] [place], [place] [id number] URINE CREATININE AND PROTEIN RATIOon 01-07-2020 CREATININE UR 75.6 mg/dl Normal [facility] Comment on above: Performed By: #### 2 01656 #### [facility],[address] [place], [place] [address] PC RATIO 0.07 mg/dL Normal 0.00 - 10.00 [facility] Comment on above: Performed By: #### 2 55278 #### [facility],[address] [place] [address] 99520 Protein (U) [Mass/Vol] mg/dL Normal 0.00 - 10.00 [facility] Comment on above: Performed By: #### 2 29659 #### [facility],[address] [place], [place] [address] CBC + DIFFon 12-10-2019 Basophils (Bld) [#/Vol] 0.10 x10EE3/UL Normal 0.00 - 0 .10 [facility] Comment on above: Performed By: #### 2 65102 #### [facility],[address] [place] [address] 56769 Basophils/100 WBC (Bld) 0.7 % Normal 0.0 - 2.0 [facility] Comment on above: Performed By: #### 2 29073 #### [facility],[address] [place] [address] 02139 CBC + DIFF Normal [facility] Comment on above: Result Comment: CBC- COMPLETE BLOOD COUNT Performed By: #### 2 67122 #### [facility],[address] [place] [address] 14002 Eosinophils (Bld) [#/Vol] 0.30 x10EE3/UL Normal 0.00 - 0.50 [facility] Comment on above: Performed By: #### 2 74269 #### [facility],[address] [place] [address] 44325 Eosinophils/100 WBC (Bld) 3.2 % Normal 0.0 - 7.0 [facility] Comment on above: Performed By: #### 2 03332 #### [facility],[address] [place] [address] 78998 Erythrocyte distribution width (RBC) [Ratio] 12.7 % Normal 12.0 - 15.6 [facility] Comment on above: Performed By: #### 2 11721 #### [facility],[address] [place] [address] 37873 Hematocrit (Bld) [Volume fraction] 38.7 % Low 40.0 - 52.0 [facility] Comment on above: Performed By: #### 2 28354 #### [facility],[address] [place] [address] 11046 Hemoglobin (Bld) [Mass/Vol] 13.4 g/dL Normal 13.0 - 17.5 [facility] Comment on above: Performed By: #### 2 97623 #### [facility],[address] [place] [address] 73846 Lymphocytes (Bld) [#/Vol] 2.10 x10EE3/UL Normal 0.80 - 2.80 [facility] Comment on above: Performed By: #### 2 15935 #### [facility],[address] [place], [place] [address] Lymphocytes/100 WBC (Bld) 21.3 % Normal 20.0 - 45. 0 [facility] Comment on above: Performed By: #### 2 91937 #### [facility],[address] [place] [address] MANUAL DIFF N/A Normal [facility] Comment on above: Performed By: #### 2 88567 #### [place] [id number] MCH (RBC) [Entitic mass] 31 pg Normal 27 - 33 [facility] Comment on above: Performed By: #### 2 05840 #### [address] [address] MCHC (RBC) [Mass/Vol] 35 X10 3 Normal 32 - 36 [facility] Comment on above: Performed By: #### 2 59942 #### [facility],[address] [place], [place] [address] MCV (RBC) [Entitic vol] 89 fL Normal 81 - 98 [facility] Comment on above: Performed By: #### 2 39902 #### [address] [address] Monocytes (Bld) [#/Vol] 1.00 x10EE3/UL Normal 0.20 - 1 .00 [facility] Comment on above: Performed By: #### 2 11449 #### [facility],[address] [place] [address] 17127 MONOS % 10.5 % High 0.0 - 10.0 [facility] Comment on above: Performed By: #### 2 06171 #### [facility],[address] [place] [place] [address] 82607 Morphology [place] (Bld) [Interp] N/A Normal [facility] Comment on above: Performed By: #### 2 94415 #### [address] [address] Neutrophils (Bld) [#/Vol] 6.30 x10EE3/UL Normal 1.50 - 7.10 [facility] Comment on above: Performed By: #### 2 21794 #### [address] [address] Neutrophils/100 WBC (Bld) 64.3 % Normal 46.0 - 76. 0 [facility] Comment on above: Performed By: #### 2 41614 #### [address] [address] Platelet mean volume (Bld) [Entitic vol] 7.4 fL Normal 6.4 - 10.5 [facility] Comment on above: Result Comment: AUTO MATED DIFFERENTIAL Performed By: #### 2 01151 #### [address] [address] Platelets (Bld) [#/Vol] 254 x10EE3/UL Normal 150 - 450 [facility] Comment on above: Performed By: #### 2 70581 #### [address] [address] RBC (Bld) [#/Vol] 4.34 x 10EE6/UL Low 4.50 - 6.00 [facility] Comment on above: Performed By: #### 2 74501 #### [address] [address] WBC (Bld) [#/Vol] 9.8 x 10EE3/UL Normal 4.5 - 10.8 [facility] Comment on above: Performed By: #### 2 28418 #### Johan [facility],[address] [place] [address] 79223 CULTURE URINEon 12-10-2019 CULTURE URINE CULTURE URINE _URINE CULTURE_ M I C R O B I O L O G Y R E P O R T FINAL Antimicrobial Susceptibility and Organism Identification Report Specimen Number : [id number] Requested : 12/09/19 Specimen Source : CLEAN CATCH URINE Collected : 12/09/19 23:45 [employer] [place] : MEME HUANG Received : 12/09/19 23:45 Requesting Physician : FLORECITA ------ Patient/Specimen Tests and Comments Specimen Comments FINAL REPORT: NO GROWTH AT 48 HOURS ------ Tech : Source : CLEAN CATCH URINE ID # : [id number] FINAL Report Date : / / : Collected : 12/09/19 23:45 12/12/19.TerosO. 12/11/19.BKO. 12/12/19.[employer] PLETE 12/12/19.TerosO.to [facility] via fax Normal [facility] Comment on above: Performed By: #### 2 51677 #### [facility],[address] [place], [place] [address] LITHIUMon 12-10-2019 [place] [Moles/Vol] 0.6 mmol/L Normal 0.6 - 1.2 [facility] Comment on above: Performed By: #### 2 79787 #### [facility],[address] [place] [address] 26296 RENAL FUNCTION PANEL WITH eG FRon 12-10-2019 Age - Reported 54 years Normal [facility] Comment on above: Performed By: #### 2 66833 #### [facility],[address] [place] [address] 97547 Albumin [Mass/Vol] 3.6 g/dL Normal 3.4 - 4.8 [facility] Comment on above: Performed By: #### 2 45042 #### [facility],[address] [place] [address] 42229 B/C RATIO 12 ratio Normal 0 - 30 [facility] Comment on above: Performed By: #### 2 09472 #### [facility],[address] [place] [address] 68853 Calcium [Mass/Vol] 9.4 mg/dL Normal 8.6 - 10.2 [facility] Comment on above: Performed By: #### 2 83095 #### [facility],[address] [place] [address] 98066 Chloride [Moles/Vol] 105 mmol/L Normal 98 - 107 [facility] Comment on above: Performed By: #### 2 07252 #### [facility],[address] [place] [address] 13400 CO2 [Moles/Vol] 24.4 mmol/L Normal 21.0 - 31.0 [facility] Comment on above: Performed By: #### 2 04032 #### [facility],[address] [place] [address] 25597 Creatinine [Mass/Vol] 1.9 mg/dL High 0.7 - 1.3 [facility] Comment on above: Performed By: #### 2 72270 #### [facility],[address] [place] [address] 16362 GFR/1.73 sq M predicted among non-blacks MDRD (S/P/Bld) [Vol rate/Area] 37 ML/MINUTE Low 60 - 999 [facility] Comment on above: Performed By: #### 2 39213 #### [facility],[address] [place] [address] 64858 GFR/1.73 sq M predicted among non-blacks MDRD (S/P/Bld) [Vol rate/Area] 45 ML/MINUTE Low 60 - 999 [facility] Comment on above: Result Comment: ACCO RDING TO THE NATIONAL KIDNEY DISEASE EDUCATION PROGRAM(NKDE), A NORMAL eGFR IS A VALUE GREATER THAN OR EQUAL TO 60 ML/MIN/1.73 SQ METERS. CHRONIC KIDNEY DISEASE: <60mL/MIN/1.73 SQ METERS KIDNEY FAILURE: <15mL/MIN/1.73 SQ METERS THIS TEST SHOULD ONLY BE USED FOR PATIENTS 18 YEARS OF AGE AND OLDER. Performed By: #### 2 34513 #### [facility],[address] [place] [address] 78655 Glucose [Mass/Vol] 106 mg/dL Normal 74 - 106 [facility] Comment on above: Performed By: #### 2 68776 #### [facility],[address] [place] [address] 39129 Phosphate [Mass/Vol] 5.0 mg/dL High 2.7 - 4.9 [facility] Comment on above: Performed By: #### 2 70020 #### [facility],[address] [place] [address] 70453 Potassium [Moles/Vol] 3.4 mmol/L Low 3.5 - 5.1 [facility] Comment on above: Performed By: #### 2 59563 #### [facility],[address] [place] [address] 56720 RENAL FUNCTION PANEL WITH eGFR Normal [facility] Comment on above: Result Comment: JESSICA L FUNCTION PANEL Performed By: #### 2 04328 #### [facility],[address] [place] [address] 50252 Sodium [Moles/Vol] 139 mmol/L Normal 136 - 145 [facility] Comment on above: Performed By: #### 2 56391 #### [facility],[address] [place] [address] 63493 Urea nitrogen [Mass/Vol] 23 mg/dL High 6 - 20 [facility] Comment on above: Performed By: #### 2 08487 #### [facility],[address] [place] [address] 01207 URINALYSISon 12-10-2019 Bilirubin [Mass/Vol] Negative Normal NORMAL: NEGATIVE [facility] Comment on above: Performed By: #### 2 00551 #### [facility],[address] [place] [address] 43230 Blood Negative Normal NORMAL: NEGATIVE [facility] Comment on above: Performed By: #### 2 11682 #### [facility],[address] [place] [address] 47644 Clarity (U) clear Normal NORMAL: CLEAR [facility] Comment on above: Performed By: #### 2 58696 #### [facility],[address] [place] [address] 90394 Color (U) p.yel Normal NORMAL: YELLOW [facility] Comment on above: Performed By: #### 2 00914 #### [facility],[address] [place] [address] 00536 Glucose [Mass/Vol] NORM Normal NORMAL: NORMAL [facility] Comment on above: Performed By: #### 2 03018 #### [facility],[address] [place], [place] [address] Ketone Negative Normal NORMAL: NEGATIVE [facility] Comment on above: Performed By: #### 2 52161 #### [facility],[address] [place] [address] Microscopic NOT INDICATED Normal [facility] Comment on above: Performed By: #### 2 98458 #### [facility],[address] [place] [address] 16593 Nitrite Ql (U) Negative Normal NORMAL: NEGATIVE [facility] Comment on above: Performed By: #### 2 38722 #### [facility],[address] [place] [address] 61860 pH (Bld) 6 Normal NORMAL: 5.0-8.0 [facility] Comment on above: Performed By: #### 2 65205 #### [facility],[address] [place] [address] 08728 Protein (U) [Mass/Vol] Negative Normal JENN L: NEGATIVE [facility] Comment on above: Performed By: #### 2 37217 #### [facility],[address] [place] [address] 72884 Sp [place] 1.015 Normal NORMAL: 1.010-1.030 [facility] Comment on above: Performed By: #### 2 90026 #### [facility],[address] [place] [address] 45557 Specimen type Nom (Spec) Clean catch Normal [facility] Comment on above: Performed By: #### 2 95552 #### [facility],[address] [place] [address] 98603 Urobilinog NORM Normal NORMAL: NORMAL [facility] Comment on above: Performed By: #### 2 42659 #### [facility],[address] [place] [address] 75307 WBC (Bld) [#/Vol] Negative Normal NORMAL: NEGATIVE [facility] Comment on above: Performed By: #### 2 10444 #### [facility],[address] [place] [address] 17335 URINE CREATININE AND PROTEIN RATIOon 12-10-2019 CREATININE UR 97.1 mg/dl Normal [facility] Comment on above: Performed By: #### 2 79985 #### [facility],[address] [place] [address] 86498 PC RATIO 0.07 mg/dL Normal 0.00 - 10.00 [facility] Comment on above: Performed By: #### 2 92511 #### [facility],[address] [place] [address] 50628 Protein (U) [Mass/Vol] 7.00 mg/dL Normal 0.00 - 10.00 [facility] Comment on above: Performed By: #### 2 81894 #### [facility],[address] [place] [address] 81973 BMP with eGFRon 11-05-2019 Age - Reported 54 years Normal [facility] Comment on above: Performed By: #### 2 86729 #### [facility],[address] [place] [address] 86279 Anion gap [Moles/Vol] 12 mmol/L Normal 10 - 20 [facility] Comment on above: Performed By: #### 2 47541 #### [address] [address] Chloride [Moles/Vol] 105 mmol/L Normal 98 - 107 [facility] Comment on above: Performed By: #### 2 28147 #### [facility],[address] [place] [address] 13048 CO2 [Moles/Vol] 26.8 mmol/L Normal 21.0 - 31.0 [facility] Comment on above: Performed By: #### 2 35588 #### [address] [address] GFR/1.73 sq M predicted among non-blacks MDRD (S/P/Bld) [Vol rate/Area] 38 ML/MINUTE Low 60 - 999 [facility] Comment on above: Result Comment: ACCO RDING TO THE NATIONAL KIDNEY DISEASE EDUCATION PROGRAM(NKDE), A NORMAL eGFR IS A VALUE GREATER THAN OR EQUAL TO 60 ML/MIN/1.73 SQ METERS. CHRONIC KIDNEY DISEASE: <60mL/MIN/1.73 SQ METERS KIDNEY FAILURE: <15mL/MIN/1.73 SQ METERS THIS TEST SHOULD ONLY BE USED FOR PATIENTS 18 YEARS OF AGE AND OLDER. Performed By: #### 2 05786 #### [address] [address] GFR/1.73 sq M predicted among non-blacks MDRD (S/P/Bld) [Vol rate/Area] 31 ML/MINUTE Low 60 - 999 [facility] Comment on above: Performed By: #### 2 13485 #### [address] [address] GFR/1.73 sq M predicted among non-blacks MDRD (S/P/Bld) [Vol rate/Area] Normal [facility] Comment on above: Result Comment: BASI C METABOLIC PANEL Performed By: #### 2 26740 #### [place] [address],[place] [address] Potassium [Moles/Vol] 3.4 mmol/L Low 3.5 - 5.1 [facility] Comment on above: Performed By: #### 2 62279 #### [facility],[address] [place] [address] Sodium [Moles/Vol] 140 mmol/L Normal 136 - 145 [facility] Comment on above: Performed By: #### 2 92075 #### [facility],[address] [place], [place] [address] CBC + DIFFon 11-05-2019 Basophils (Bld) [#/Vol] 0.10 x10EE3/UL Normal 0.00 - 0 .10 [facility] Comment on above: Performed By: #### 2 11044 #### [facility],[address] [place] [address] 13133 Basophils/100 WBC (Bld) 0.9 % Normal 0.0 - 2.0 [facility] Comment on above: Performed By: #### 2 46614 #### [facility],[address] [place] [address] CBC + DIFF Normal [facility] Comment on above: Result Comment: CBC- COMPLETE BLOOD COUNT Performed By: #### 2 30625 #### [facility],[address] [place] [address] 68006 Eosinophils (Bld) [#/Vol] 0.40 x10EE3/UL Normal 0.00 - 0.50 [facility] Comment on above: Performed By: #### 2 53372 #### [facility],[address] [place] [address] 57400 Eosinophils/100 WBC (Bld) 3.9 % Normal 0.0 - 7.0 [facility] Comment on above: Performed By: #### 2 49355 #### [facility],[address],[place] [address] Erythrocyte distribution width (RBC) [Ratio] 12.4 % Normal 12.0 - 15.6 [facility] Comment on above: Performed By: #### 2 59380 #### [facility],[address] [place] [address] 46094 Hematocrit (Bld) [Volume fraction] 39.9 % Low 40.0 - 52.0 [facility] Comment on above: Performed By: #### 2 53151 #### [facility],[address] [place] [address] 11271 Hemoglobin (Bld) [Mass/Vol] 13.3 g/dL Normal 13.0 - 17.5 [facility] Comment on above: Performed By: #### 2 66936 #### [facility],[address] [place] [address] 30572 Lymphocytes (Bld) [#/Vol] 1.90 x10EE3/UL Normal 0.80 - 2.80 [facility] Comment on above: Performed By: #### 2 59927 #### [facility],[address] [place] [address] 67734 Lymphocytes/100 WBC (Bld) 20.3 % Normal 20.0 - 45. 0 [facility] Comment on above: Performed By: #### 2 06628 #### [facility],[address] [place] [place] [address] 42430 MANUAL DIFF N/A Normal [facility] Comment on above: Performed By: #### 2 09035 #### [facility],[address] [place] [place] [address] 17804 MCH (RBC) [Entitic mass] 30 pg Normal 27 - 33 [facility] Comment on above: Performed By: #### 2 22014 #### [facility],[address] [place] [address] 25492 MCHC (RBC) [Mass/Vol] 33 X10 3 Normal 32 - 36 [facility] Comment on above: Performed By: #### 2 26663 #### [facility],[address] [place] [place] [address] 05365 MCV (RBC) [Entitic vol] 91 fL Normal 81 - 98 [facility] Comment on above: Performed By: #### 2 90145 #### [facility],[address] [place] [place] [address] 82598 Monocytes (Bld) [#/Vol] 1.00 x10EE3/UL Normal 0.20 - 1 .00 [facility] Comment on above: Performed By: #### 2 01130 #### [facility],[address] [place] [address] 90518 MONOS % 10.5 % High 0.0 - 10.0 [facility] Comment on above: Performed By: #### 2 92019 #### [facility],[address] [place] [place] [address] 61941 Morphology Crispin (Bld) [Interp] N/A Normal [facility] Comment on above: Performed By: #### 2 21701 #### [facility],[address] [place] [address] 47648 Neutrophils (Bld) [#/Vol] 6.10 x10EE3/UL Normal 1.50 - 7.10 [facility] Comment on above: Performed By: #### 2 51307 #### [facility],[address] [place] [address] 30739 Neutrophils/100 WBC (Bld) 64.4 % Normal 46.0 - 76. 0 [facility] Comment on above: Performed By: #### 2 42609 #### [facility],[address] [place] [address] 99805 Platelet mean volume (Bld) [Entitic vol] 7.4 fL Normal 6.4 - 10.5 [facility] Comment on above: Result Comment: AUTO MATED DIFFERENTIAL Performed By: #### 2 91689 #### [facility],[address] [place] [address] 60726 Platelets (Bld) [#/Vol] 260 x10EE3/UL Normal 150 - 450 [facility] Comment on above: Performed By: #### 2 39552 #### [facility],[address] [place] [address] RBC (Bld) [#/Vol] 4.38 x 10EE6/UL Low 4.50 - 6.00 [facility] Comment on above: Performed By: #### 2 40840 #### [facility],[address] [place], [place] [address] WBC (Bld) [#/Vol] 9.4 x 10EE3/UL Normal 4.5 - 10.8 [facility] Comment on above: Performed By: #### 2 26633 #### [facility],[address] [place] [address] LITHIUMon 11-05-2019 [place] [Moles/Vol] 0.5 mmol/L Low 0.6 - 1.2 [facility] Comment on above: Performed By: #### 2 70291 #### [facility],[address] [place] [address] RENAL FUNCTION PANELon 11-05 Albumin [Mass/Vol] 3.5 g/dL Normal 3.4 - 4.8 [facility] Comment on above: Performed By: #### 2 82272 #### [facility],[address] [place] [address] B/C RATIO 9 ratio Normal 0 - 30 [facility] Comment on above: Performed By: #### 2 14829 #### [facility],[address] [place] [address] Calcium [Mass/Vol] 9.4 mg/dL Normal 8.6 - 10.2 [facility] Comment on above: Performed By: #### 2 90862 #### [facility],[address],[place] [address] Creatinine [Mass/Vol] 2.2 mg/dL High 0.7 - 1.3 [facility] Comment on above: Performed By: #### 2 46027 #### [facility],[address] [place] [address] Glucose [Mass/Vol] 105 mg/dL Normal 74 - 106 [facility] Comment on above: Performed By: #### 2 50303 #### [facility],[address] [place] [address] Phosphate [Mass/Vol] 4.3 mg/dL Normal 2.7 - 4.9 [facility] Comment on above: Performed By: #### 2 48072 #### [facility],[address] [place] [address] RENAL FUNCTION PANEL Normal [facility] Comment on above: Result Comment: JESSICA L FUNCTION PANEL Performed By: #### 2 34992 #### [facility],[address] [place] [address] Urea nitrogen [Mass/Vol] 20 mg/dL Normal 6 - 20 [facility] Comment on above: Performed By: #### 2 34391 #### [facility],[address] [place] [address] URINALYSISon 11-05-2019 Bilirubin [Mass/Vol] Negative Normal NORMAL: NEGATIVE [facility] Comment on above: Performed By: #### 2 75503 #### [facility],[address] [place] [address] Blood Negative Normal NORMAL: NEGATIVE [facility] Comment on above: Performed By: #### 2 18016 #### [facility],[address] [place] [address] Clarity (U) clear Normal NORMAL: CLEAR [facility] Comment on above: Performed By: #### 2 86854 #### [facility],[address] [place] [address] Color (U) p.yel Normal NORMAL: YELLOW [facility] Comment on above: Performed By: #### 2 84141 #### [facility],[address] [place] [address] 32721 Glucose [Mass/Vol] NORM Normal NORMAL: NORMAL [facility] Comment on above: Performed By: #### 2 79649 #### [facility],[address] [place] [place] [address] 89582 Ketone Negative Normal NORMAL: NEGATIVE [facility] Comment on above: Performed By: #### 2 10436 #### [facility],[address] [place], [place] [id number] Microscopic NOT INDICATED Normal [facility] Comment on above: Performed By: #### 2 75449 #### [facility],[address] [place], [place] [address] Nitrite Ql (U) Negative Normal NORMAL: NEGATIVE [facility] Comment on above: Performed By: #### 2 59657 #### [facility],[address] [place], [place] [address] pH (Bld) 6.5 Normal NORMAL: 5.0-8.0 [facility] Comment on above: Performed By: #### 2 82109 #### [facility],[address] [place] [address] 75369 Protein (U) [Mass/Vol] Negative Normal JENN L: NEGATIVE [facility] Comment on above: Performed By: #### 2 59052 #### [facility],[address] [place] [address] 69819 Sp [place] 1.010 Normal NORMAL: 1.010-1.030 [facility] Comment on above: Performed By: #### 2 92340 #### [facility],[address] [place] [address] 06652 Specimen type Nom (Spec) UNSPECIFIED Normal [facility] Comment on above: Performed By: #### 2 59054 #### [facility],[address] [place] [address] 14669 Urobilinog NORM Normal NORMAL: NORMAL [facility] Comment on above: Performed By: #### 2 28538 #### [facility],[address] [place] [address] 81736 WBC (Bld) [#/Vol] Negative Normal NORMAL: NEGATIVE [facility] Comment on above: Performed By: #### 2 78661 #### [facility],[address] [place], [place] [address] URINE CREATININE AND PROTEIN RATIOon 11-05-2019 CREATININE UR 72.6 mg/dl Normal [facility] Comment on above: Performed By: #### 2 73537 #### [facility],[address] [place] [address] PC RATIO 0.07 mg/dL Normal 0.00 - 10.00 [facility] Comment on above: Performed By: #### 2 67652 #### [facility],[address] [place] [address] 11340 Protein (U) [Mass/Vol] mg/dL Normal 0.00 - 10.00 [facility] Comment on above: Performed By: #### 2 12600 #### [facility],[address] [place], [place] [address] BMP with eGFRon 10-08-2019 Age - Reported 54 years Normal [facility] Comment on above: Performed By: #### 2 08336 #### [facility],[address] [place] [address] 77019 Anion gap [Moles/Vol] 12 mmol/L Normal 10 - 20 [facility] Comment on above: Performed By: #### 2 12800 #### [facility],[address] [place] [address] 62244 Calcium [Mass/Vol] 9.2 mg/dL Normal 8.6 - 10.2 [facility] Comment on above: Performed By: #### 2 83427 #### [facility],[address] [place] [address] 27254 Chloride [Moles/Vol] 107 mmol/L Normal 98 - 107 [facility] Comment on above: Performed By: #### 2 56580 #### [facility],[address] [place] [address] 42028 CO2 [Moles/Vol] 26.7 mmol/L Normal 21.0 - 31.0 [facility] Comment on above: Performed By: #### 2 16745 #### [facility],[address] [place] [address] 33166 Creatinine [Mass/Vol] 2.1 mg/dL High 0.7 - 1.3 [facility] Comment on above: Performed By: #### 2 51561 #### [facility],[address] [place] [address] 43474 GFR/1.73 sq M predicted among non-blacks MDRD (S/P/Bld) [Vol rate/Area] Normal [facility] Comment on above: Result Comment: BASI C METABOLIC PANEL Performed By: #### 2 84243 #### [facility],[address] [place] [address] 81552 GFR/1.73 sq M predicted among non-blacks MDRD (S/P/Bld) [Vol rate/Area] 40 ML/MINUTE Low 60 - 999 [facility] Comment on above: Result Comment: ACCO RDING TO THE NATIONAL KIDNEY DISEASE EDUCATION PROGRAM(NKDE), A NORMAL eGFR IS A VALUE GREATER THAN OR EQUAL TO 60 ML/MIN/1.73 SQ METERS. CHRONIC KIDNEY DISEASE: <60mL/MIN/1.73 SQ METERS KIDNEY FAILURE: <15mL/MIN/1.73 SQ METERS THIS TEST SHOULD ONLY BE USED FOR PATIENTS 18 YEARS OF AGE AND OLDER. Performed By: #### 2 20990 #### [facility],[address] [place] [address] 35766 GFR/1.73 sq M predicted among non-blacks MDRD (S/P/Bld) [Vol rate/Area] 33 ML/MINUTE Low 60 - 999 [facility] Comment on above: Performed By: #### 2 32284 #### [facility],[address] [place] [address] 90143 Glucose [Mass/Vol] 106 mg/dL Normal 74 - 106 [facility] Comment on above: Performed By: #### 2 63011 #### [facility],[address] [place] [address] 31783 Potassium [Moles/Vol] 3.6 mmol/L Normal 3.5 - 5.1 [facility] Comment on above: Performed By: #### 2 65396 #### [facility],[address] [place] [address] 67791 Sodium [Moles/Vol] 142 mmol/L Normal 136 - 145 [facility] Comment on above: Performed By: #### 2 76338 #### [facility],[address] [place], [place] [address] Urea nitrogen [Mass/Vol] 22 mg/dL High 6 - 20 [facility] Comment on above: Performed By: #### 2 09356 #### [facility],[address] [place] [address] 52362 CBC + DIFFon 10-08-2019 Basophils (Bld) [#/Vol] 0.10 x10EE3/UL Normal 0.00 - 0 .10 [facility] Comment on above: Performed By: #### 2 26559 #### [facility],[address] [place] [address] 04860 Basophils/100 WBC (Bld) 0.7 % Normal 0.0 - 2.0 [facility] Comment on above: Performed By: #### 2 70875 #### [facility],[address] [place] [address] 32379 CBC + DIFF Normal [facility] Comment on above: Result Comment: CBC- COMPLETE BLOOD COUNT Performed By: #### 2 15156 #### [facility],[address] [place] [address] 04593 Eosinophils (Bld) [#/Vol] 0.50 x10EE3/UL Normal 0.00 - 0.50 [facility] Comment on above: Performed By: #### 2 61606 #### [facility],[address] [place] [address] 63343 Eosinophils/100 WBC (Bld) 5.1 % Normal 0.0 - 7.0 [facility] Comment on above: Performed By: #### 2 71057 #### [facility],[address] [place] [address] 99877 Erythrocyte distribution width (RBC) [Ratio] 12.8 % Normal 12.0 - 15.6 [facility] Comment on above: Performed By: #### 2 68974 #### [place] [id number] Hematocrit (Bld) [Volume fraction] 37.6 % Low 40.0 - 52.0 [facility] Comment on above: Performed By: #### 2 08863 #### [address] [address] Hemoglobin (Bld) [Mass/Vol] 12.5 g/dL Low 13.0 - 17.5 [facility] Comment on above: Performed By: #### 2 57882 #### [address] [address] Lymphocytes (Bld) [#/Vol] 1.90 x10EE3/UL Normal 0.80 - 2.80 [facility] Comment on above: Performed By: #### 2 00633 #### [address] [address]68 Lymphocytes/100 WBC (Bld) 18.6 % Low 20.0 - 45. 0 [facility] Comment on above: Performed By: #### 2 69932 #### [facility],[address] [place] [address] 00984 MANUAL DIFF N/A Normal [facility] Comment on above: Performed By: #### 2 91079 #### [facility],[address] [place], [place] [address] MCH (RBC) [Entitic mass] 31 pg Normal 27 - 33 [facility] Comment on above: Performed By: #### 2 26868 #### [facility],[address] [place] [address] MCHC (RBC) [Mass/Vol] 33 X10 3 Normal 32 - 36 [facility] Comment on above: Performed By: #### 2 53041 #### [facility],[address] [place], [place] [address] MCV (RBC) [Entitic vol] 93 fL Normal 81 - 98 [facility] Comment on above: Performed By: #### 2 64211 #### [facility],[address] [place], [place] [address] Monocytes (Bld) [#/Vol] 1.00 x10EE3/UL Normal 0.20 - 1 .00 [facility] Comment on above: Performed By: #### 2 33640 #### [facility],[address] [place] [address] 16149 MONOS % 9.4 % Normal 0.0 - 10.0 [facility] Comment on above: Performed By: #### 2 06896 #### [facility],[address] [place] [address] 05626 Morphology [place] (Bld) [Interp] N/A Normal [facility] Comment on above: Performed By: #### 2 85276 #### [facility],[address] [place] [address] 20050 Neutrophils (Bld) [#/Vol] 6.90 x10EE3/UL Normal 1.50 - 7.10 [facility] Comment on above: Performed By: #### 2 82884 #### [facility],[address] [place], [place] [address] Neutrophils/100 WBC (Bld) 66.2 % Normal 46.0 - 76. 0 [facility] Comment on above: Performed By: #### 2 02723 #### [facility],[address] [place] [address] Platelet mean volume (Bld) [Entitic vol] 7.7 fL Normal 6.4 - 10.5 [facility] Comment on above: Result Comment: AUTO MATED DIFFERENTIAL Performed By: #### 2 34140 #### [address] [address] Platelets (Bld) [#/Vol] 250 x10EE3/UL Normal 150 - 450 [facility] Comment on above: Performed By: #### 2 46281 #### [address] [address] RBC (Bld) [#/Vol] 4.07 x 10EE6/UL Low 4.50 - 6.00 [facility] Comment on above: Performed By: #### 2 64068 #### [facility],[address] [place] [address] 88128 WBC (Bld) [#/Vol] 10.4 x 10EE3/UL Normal 4.5 - 10.8 [facility] Comment on above: Performed By: #### 2 79741 #### [address] [address] CULTURE URINEon 10-08-2019 CULTURE URINE CULTURE URINE _URINE CULTURE_ M I C R O B I O L O G Y R E P O R T FINAL Antimicrobial Susceptibility and Organism Identification Report Specimen Number : [id number] Requested : 10/08/19 Specimen Source : URINE Collected : 10/08/19 08:30 [place] [employer] [place] : MEME HUANG Received : 10/08/19 08:30 Requesting Physician : FLORECITA ------ Patient/Specimen Tests and Comments Specimen Comments FINAL REPORT: NO GROWTH AT 48 HOURS ------ Tech : Source : URINE ID # : [id number] FINAL Report Date : / / : Collected : 10/08/19 08:30 10/10/19.1115.BKO. 10/09/19.1011.BKO. 10/10/19.1115.BKO.[employer]IGE [facility] Comment on above: Performed By: #### 2 72094 #### [facility],[address] [place] [address] 87143 HEPATIC FUNCTION PANELon ALK PHOS 52 U/L Normal 38 - 126 [facility] Comment on above: Performed By: #### 2 71549 #### [facility],[address] [place] [address] 64769 ALT/SGPT 15 U/L Normal 10 - 40 [facility] Comment on above: Performed By: #### 2 95703 #### [facility],[address] [place] [address] 65381 AST/SGOT 9 U/L Low 13 - 39 [facility] Comment on above: Performed By: #### 2 67193 #### [facility],[address] [place] [address] 66071 Bilirubin [Mass/Vol] 0.3 mg/dL Normal 0.0 - 1.5 [facility] Comment on above: Performed By: #### 2 40023 #### [facility],[address] [place] [address] 16213 Bilirubin.direct [Mass/Vol] 0.1 mg/dL Normal 0.0 - 0.1 [facility] Comment on above: Performed By: #### 2 22288 #### [facility],[address] [place] [address] 37210 HEPATIC FUNCTION PANEL Normal [facility] Comment on above: Result Comment: HEPA TIC FUNCTION PROFILE Performed By: #### 2 08709 #### [facility],[address] [place] [address] 31455 Protein [Mass/Vol] 5.5 g/dL Low 6.4 - 8.3 [facility] Comment on above: Performed By: #### 2 79955 #### [facility],[address] [place] [address] 61775 LITHIUMon 10-08-2019 [place] [Moles/Vol] 0.6 mmol/L Normal 0.6 - 1.2 [facility] Comment on above: Performed By: #### 2 22336 #### [facility],[address] [place] [address] 82008 RENAL FUNCTION PANELon 10-08 Albumin [Mass/Vol] 3.5 g/dL Normal 3.4 - 4.8 [facility] Comment on above: Performed By: #### 2 09360 #### [facility],[address] [place], [place] [address] B/C RATIO 10 ratio Normal 0 - 30 [facility] Comment on above: Performed By: #### 2 87856 #### [facility],[address] [place] [address] 74135 Calcium [Mass/Vol] 9.2 mg/dL Normal 8.6 - 10.2 [facility] Comment on above: Performed By: #### 2 32577 #### [facility],[address] [place] [address] 31811 Chloride [Moles/Vol] 107 mmol/L Normal 98 - 107 [facility] Comment on above: Performed By: #### 2 31297 #### [facility],[address] [place] [address] 86341 CO2 [Moles/Vol] 26.7 mmol/L Normal 21.0 - 31.0 [facility] Comment on above: Performed By: #### 2 46361 #### [facility],[address] [place] [address] 91190 Creatinine [Mass/Vol] 2.1 mg/dL High 0.7 - 1.3 [facility] Comment on above: Performed By: #### 2 05798 #### [facility],[address] [place] [address] 30923 Glucose [Mass/Vol] 106 mg/dL Normal 74 - 106 [facility] Comment on above: Performed By: #### 2 15814 #### [facility],[address] [place] [address] 83996 Phosphate [Mass/Vol] 4.7 mg/dL Normal 2.7 - 4.9 [facility] Comment on above: Performed By: #### 2 96171 #### [facility],[address] [place] [address] 14123 Potassium [Moles/Vol] 3.6 mmol/L Normal 3.5 - 5.1 [facility] Comment on above: Performed By: #### 2 53563 #### [facility],[address] [place] [address] 94080 RENAL FUNCTION PANEL Normal [facility] Comment on above: Result Comment: JESSICA L FUNCTION PANEL Performed By: #### 2 84547 #### [facility],[address] [place] [address] 28921 Sodium [Moles/Vol] 142 mmol/L Normal 136 - 145 [facility] Comment on above: Performed By: #### 2 07508 #### [facility],[address] [place] [address] 13777 Urea nitrogen [Mass/Vol] 22 mg/dL High 6 - 20 [facility] Comment on above: Performed By: #### 2 10489 #### [facility],[address] [place] [address] 13115 URINALYSISon 10-08-2019 Bilirubin [Mass/Vol] Negative Normal NORMAL: NEGATIVE [facility] Comment on above: Performed By: #### 2 81682 #### [facility],[address] [place] [address] 03237 Blood Negative Normal NORMAL: NEGATIVE [facility] Comment on above: Performed By: #### 2 59645 #### [facility],[address] [place] [place] [address] 81716 Clarity (U) clear Normal NORMAL: CLEAR [facility] Comment on above: Performed By: #### 2 58418 #### [facility],[address] [place] [address] 15241 Color (U) p.yel Normal NORMAL: YELLOW [facility] Comment on above: Performed By: #### 2 98306 #### [facility],[address] [place] [address] 04880 Glucose [Mass/Vol] NORM Normal NORMAL: NORMAL [facility] Comment on above: Performed By: #### 2 11300 #### [facility],[address] [place] [address] Ketone Negative Normal NORMAL: NEGATIVE [facility] Comment on above: Performed By: #### 2 03477 #### [facility],[address] [place] [address] Microscopic NOT INDICATED Normal [facility] Comment on above: Performed By: #### 2 83704 #### [facility],[address] [place], [place] [id number] Nitrite Ql (U) Negative Normal NORMAL: NEGATIVE [facility] Comment on above: Performed By: #### 2 90704 #### [facility],[address] [place] [address] pH (Bld) 6 Normal NORMAL: 5.0-8.0 [facility] Comment on above: Performed By: #### 2 19273 #### [facility],[address] [place], [place] [id number] Protein (U) [Mass/Vol] Negative Normal JENN L: NEGATIVE [facility] Comment on above: Performed By: #### 2 60722 #### [facility],[address] [place], [place] [address] Sp [place] 1.015 Normal NORMAL: 1.010-1.030 [facility] Comment on above: Performed By: #### 2 05026 #### [facility],[address] [place], [place] [address] Specimen type Nom (Spec) Clean catch Normal [facility] Comment on above: Performed By: #### 2 78928 #### [facility],[address] [place] [address] 27740 Urobilinog NORM Normal NORMAL: NORMAL [facility] Comment on above: Performed By: #### 2 49481 #### [facility],[address] [place] [address] 01366 WBC (Bld) [#/Vol] Negative Normal NORMAL: NEGATIVE [facility] Comment on above: Performed By: #### 2 32714 #### [facility],[address] [place] [address] CBC + DIFFon 09-10-2019 Basophils (Bld) [#/Vol] 0.10 x10EE3/UL Normal 0.00 - 0 .10 [facility] Comment on above: Performed By: #### 2 30808 #### [facility],[address] [place] [address] 73336 Basophils/100 WBC (Bld) 1.0 % Normal 0.0 - 2.0 [facility] Comment on above: Performed By: #### 2 93592 #### [facility],[address] [place] [address] 90475 CBC + DIFF Normal [facility] Comment on above: Result Comment: CBC- COMPLETE BLOOD COUNT Performed By: #### 2 41936 #### [facility],[address] [place] [address] 72138 Eosinophils (Bld) [#/Vol] 0.50 x10EE3/UL Normal 0.00 - 0.50 [facility] Comment on above: Performed By: #### 2 77583 #### [facility],[address] [place] [address] 94105 Eosinophils/100 WBC (Bld) 6.3 % Normal 0.0 - 7.0 [facility] Comment on above: Performed By: #### 2 90785 #### [facility],[address] [place] [address] 56037 Erythrocyte distribution width (RBC) [Ratio] 13.3 % Normal 12.0 - 15.6 [facility] Comment on above: Performed By: #### 2 85754 #### [facility],[address] [place] [address] 16657 Hematocrit (Bld) [Volume fraction] 36.9 % Low 40.0 - 52.0 [facility] Comment on above: Performed By: #### 2 38746 #### [facility],[address] [place] [address] 13823 Hemoglobin (Bld) [Mass/Vol] 12.5 g/dL Low 13.0 - 17.5 [facility] Comment on above: Performed By: #### 2 87109 #### [facility],[address] [place] [address] 88401 Lymphocytes (Bld) [#/Vol] 2.20 x10EE3/UL Normal 0.80 - 2.80 [facility] Comment on above: Performed By: #### 2 23934 #### [facility],[address] [place] [address] 32575 Lymphocytes/100 WBC (Bld) 25.0 % Normal 20.0 - 45. 0 [facility] Comment on above: Performed By: #### 2 82570 #### [facility],[address] [place] [address] 54204 MANUAL DIFF N/A Normal [facility] Comment on above: Performed By: #### 2 08276 #### [facility],[address] [place] [address] 16209 MCH (RBC) [Entitic mass] 31 pg Normal 27 - 33 [facility] Comment on above: Performed By: #### 2 57074 #### [facility],[address] [place] [address] 51266 MCHC (RBC) [Mass/Vol] 34 X10 3 Normal 32 - 36 [facility] Comment on above: Performed By: #### 2 99014 #### [facility],[address] [place] [address] 30827 MCV (RBC) [Entitic vol] 93 fL Normal 81 - 98 [facility] Comment on above: Performed By: #### 2 32316 #### [facility],[address] [place] [address] 74674 Monocytes (Bld) [#/Vol] 0.90 x10EE3/UL Normal 0.20 - 1 .00 [facility] Comment on above: Performed By: #### 2 96513 #### [address] [address] MONOS % 10.6 % High 0.0 - 10.0 [facility] Comment on above: Performed By: #### 2 90657 #### [address] [address] Morphology Crispin (Bld) [Interp] N/A Normal [facility] Comment on above: Performed By: #### 2 62339 #### [address] [address] Neutrophils (Bld) [#/Vol] 5.00 x10EE3/UL Normal 1.50 - 7.10 [facility] Comment on above: Performed By: #### 2 12066 #### [address] [address] Neutrophils/100 WBC (Bld) 57.1 % Normal 46.0 - 76. 0 [facility] Comment on above: Performed By: #### 2 88840 #### [address] [address] Platelet mean volume (Bld) [Entitic vol] 7.6 fL Normal 6.4 - 10.5 [facility] Comment on above: Result Comment: AUTO MATED DIFFERENTIAL Performed By: #### 2 24791 #### [address],[place] [address] Platelets (Bld) [#/Vol] 236 x10EE3/UL Normal 150 - 450 [facility] Comment on above: Performed By: #### 2 14744 #### [facility],[address] [place] [address] 48568 RBC (Bld) [#/Vol] 3.99 x 10EE6/UL Low 4.50 - 6.00 [facility] Comment on above: Performed By: #### 2 09604 #### [facility],[address] [place] [address] 61979 WBC (Bld) [#/Vol] 8.7 x 10EE3/UL Normal 4.5 - 10.8 [facility] Comment on above: Performed By: #### 2 45424 #### [facility],[address] [place] [address] 25260 CULTURE URINEon 09-10-2019 CULTURE URINE CULTURE URINE _URINE CULTURE_ M I C R O B I O L O G Y R E P O R T FINAL Antimicrobial Susceptibility and Organism Identification Report Specimen Number : [id number] Requested : 09/10/19 Specimen Source : CLEAN CATCH URINE Collected : 09/10/19 04:30 [place] [employer] [place] : MEME HUAGN Received : 09/10/19 04:30 Requesting Physician : FLORECITA ------ Patient/Specimen Tests and Comments Specimen Comments FINAL REPORT: NO GROWTH AT 48 HOURS ------ Tech : Source : CLEAN CATCH URINE ID # : [id number] FINAL Report Date : / / : Collected : 09/10/19 04:30 09/12/19.1053.BKO. 09/11/19.0717.JLN. 09/12/19.1053.BKO.[employer] PLETE 09/12/19105.BKO.to [facility] via fax Normal [facility] Comment on above: Performed By: #### 2 42474 #### [facility],[address] [place] [address] 99091 LITHIUMon 09-10-2019 [place] [Moles/Vol] 0.6 mmol/L Normal 0.6 - 1.2 [facility] Comment on above: Performed By: #### 2 95836 #### [facility],[address] [place] [address] 40144 RENAL FUNCTION PANEL WITH eG FRon 09-10-2019 Age - Reported 54 years Normal [facility] Comment on above: Performed By: #### 2 59182 #### [facility],[address] [place] [address] 31866 Albumin [Mass/Vol] 3.4 g/dL Normal 3.4 - 4.8 [facility] Comment on above: Performed By: #### 2 34228 #### [facility],[address] [place] [address] 79706 B/C RATIO 11 ratio Normal 0 - 30 [facility] Comment on above: Performed By: #### 2 91931 #### [facility],[address] [place] [address] 91934 Calcium [Mass/Vol] 9.2 mg/dL Normal 8.6 - 10.2 [facility] Comment on above: Performed By: #### 2 07014 #### [facility],[address] [place] [address] 64389 Chloride [Moles/Vol] 107 mmol/L Normal 98 - 107 [facility] Comment on above: Performed By: #### 2 12430 #### [facility],[address] [place] [address] 84565 CO2 [Moles/Vol] 25.3 mmol/L Normal 21.0 - 31.0 [facility] Comment on above: Performed By: #### 2 24868 #### [facility],[address] [place] [address] 22095 Creatinine [Mass/Vol] 2.2 mg/dL High 0.7 - 1.3 [facility] Comment on above: Performed By: #### 2 63597 #### [address] [address] GFR/1.73 sq M predicted among non-blacks MDRD (S/P/Bld) [Vol rate/Area] 31 ML/MINUTE Low 60 - 999 [facility] Comment on above: Performed By: #### 2 00588 #### [facility],[address] [place] [address] 76425 GFR/1.73 sq M predicted among non-blacks MDRD (S/P/Bld) [Vol rate/Area] 38 ML/MINUTE Low 60 - 999 [facility] Comment on above: Result Comment: ACCO RDING TO THE NATIONAL KIDNEY DISEASE EDUCATION PROGRAM(NKDE), A NORMAL eGFR IS A VALUE GREATER THAN OR EQUAL TO 60 ML/MIN/1.73 SQ METERS. CHRONIC KIDNEY DISEASE: <60mL/MIN/1.73 SQ METERS KIDNEY FAILURE: <15mL/MIN/1.73 SQ METERS THIS TEST SHOULD ONLY BE USED FOR PATIENTS 18 YEARS OF AGE AND OLDER. Performed By: #### 2 01071 #### [facility],[address] [place] [address] 10164 Glucose [Mass/Vol] 96 mg/dL Normal 74 - 106 [facility] Comment on above: Performed By: #### 2 57375 #### [facility],[address] [place] [address] 09521 Phosphate [Mass/Vol] 4.5 mg/dL Normal 2.7 - 4.9 [facility] Comment on above: Performed By: #### 2 48419 #### [facility],[address] [place] [address] 27953 Potassium [Moles/Vol] 3.5 mmol/L Normal 3.5 - 5.1 [facility] Comment on above: Performed By: #### 2 13207 #### [facility],[address] [place] [address] 86980 RENAL FUNCTION PANEL WITH eGFR Normal [facility] Comment on above: Result Comment: JESSICA L FUNCTION PANEL Performed By: #### 2 62224 #### [facility],[address] [place] [address] 64279 Sodium [Moles/Vol] 141 mmol/L Normal 136 - 145 [facility] Comment on above: Performed By: #### 2 54639 #### [facility],[address] [place] [address] Urea nitrogen [Mass/Vol] 24 mg/dL High 6 - 20 [facility] Comment on above: Performed By: #### 2 23776 #### [facility],[address] [place], [place] [address] URINALYSISon 09-10-2019 Bilirubin [Mass/Vol] Negative Normal NORMAL: NEGATIVE [facility] Comment on above: Performed By: #### 2 30679 #### [facility],[address] [place], [place] [address] Blood Negative Normal NORMAL: NEGATIVE [facility] Comment on above: Performed By: #### 2 76610 #### [facility],[address] [place] [address] Clarity (U) clear Normal NORMAL: CLEAR [facility] Comment on above: Performed By: #### 2 72323 #### [facility],[address] [place], [place] [address] Color (U) p.yel Normal NORMAL: YELLOW [facility] Comment on above: Performed By: #### 2 96757 #### [facility],[address] [place], [place] [address] Glucose [Mass/Vol] NORM Normal NORMAL: NORMAL [facility] Comment on above: Performed By: #### 2 56681 #### [facility],[address] [place], [place] [address] Ketone Negative Normal NORMAL: NEGATIVE [facility] Comment on above: Performed By: #### 2 18247 #### [facility],[address] [place], [place] [address] Microscopic NOT INDICATED Normal [facility] Comment on above: Performed By: #### 2 63590 #### [facility],[address] [place] [address] 58063 Nitrite Ql (U) Negative Normal NORMAL: NEGATIVE [facility] Comment on above: Performed By: #### 2 44019 #### [facility],[address] [place] [place] [address] 08323 pH (Bld) 6.5 Normal NORMAL: 5.0-8.0 [facility] Comment on above: Performed By: #### 2 07692 #### [facility],[address] [place] [address] 04181 Protein (U) [Mass/Vol] Negative Normal JENN L: NEGATIVE [facility] Comment on above: Performed By: #### 2 93714 #### [facility],[address] [place] [address] Sp [place] 1.010 Normal NORMAL: 1.010-1.030 [facility] Comment on above: Performed By: #### 2 52988 #### [facility],[address] [place] [address] Specimen type Nom (Spec) Clean catch Normal [facility] Comment on above: Performed By: #### 2 47786 #### [facility],[address] [place] [address] Urobilinog NORM Normal NORMAL: NORMAL [facility] Comment on above: Performed By: #### 2 58943 #### [facility],[address] [place], [place] [address] WBC (Bld) [#/Vol] Negative Normal NORMAL: NEGATIVE [facility] Comment on above: Performed By: #### 2 64439 #### [facility],[address] [place], [place] [address] URINE CREATININE AND PROTEIN RATIOon 09-10-2019 CREATININE UR 58.3 mg/dl Normal [facility] Comment on above: Performed By: #### 2 75866 #### [facility],[address] [place] [address] 87552 PC RATIO 0.09 mg/dL Normal 0.00 - 10.00 [facility] Comment on above: Performed By: #### 2 65058 #### [facility],[address] [place] [address] 79850 Protein (U) [Mass/Vol] mg/dL Normal 0.00 - 10.00 [facility] Comment on above: Performed By: #### 2 12750 #### [facility],[address] [place] [address] 48017 BMP with eGFRon 08-31-2019 Age - Reported 54 years Normal [facility] Comment on above: Performed By: #### 2 71208 #### [facility],[address] [place] [address] 46743 Anion gap [Moles/Vol] 12 mmol/L Normal 10 - 20 [facility] Comment on above: Performed By: #### 2 96457 #### [facility],[address] [place] [address] 24836 Calcium [Mass/Vol] 9.4 mg/dL Normal 8.6 - 10.2 [facility] Comment on above: Performed By: #### 2 56797 #### [facility],[address] [place] [address] 43847 Chloride [Moles/Vol] 104 mmol/L Normal 98 - 107 [facility] Comment on above: Performed By: #### 2 29351 #### [facility],[address] [place] [address] 86009 CO2 [Moles/Vol] 26.9 mmol/L Normal 21.0 - 31.0 [facility] Comment on above: Performed By: #### 2 81956 #### [facility],[address] [place] [address] 71791 Creatinine [Mass/Vol] 2.4 mg/dL High 0.7 - 1.3 [facility] Comment on above: Performed By: #### 2 97891 #### [facility],[address] [place] [address] 10110 GFR/1.73 sq M predicted among non-blacks MDRD (S/P/Bld) [Vol rate/Area] Normal [facility] Comment on above: Result Comment: BASI C METABOLIC PANEL Performed By: #### 2 66068 #### [facility],[address] [place] [address] 65361 GFR/1.73 sq M predicted among non-blacks MDRD (S/P/Bld) [Vol rate/Area] 28 ML/MINUTE Low 60 - 999 [facility] Comment on above: Performed By: #### 2 13356 #### [facility],[address] [place] [address] 30708 GFR/1.73 sq M predicted among non-blacks MDRD (S/P/Bld) [Vol rate/Area] 34 ML/MINUTE Low 60 - 999 [facility] Comment on above: Result Comment: ACCO RDING TO THE NATIONAL KIDNEY DISEASE EDUCATION PROGRAM(NKDE), A NORMAL eGFR IS A VALUE GREATER THAN OR EQUAL TO 60 ML/MIN/1.73 SQ METERS. CHRONIC KIDNEY DISEASE: <60mL/MIN/1.73 SQ METERS KIDNEY FAILURE: <15mL/MIN/1.73 SQ METERS THIS TEST SHOULD ONLY BE USED FOR PATIENTS 18 YEARS OF AGE AND OLDER. Performed By: #### 2 45903 #### [facility],[address] [place] [address] 74783 Glucose [Mass/Vol] 106 mg/dL Normal 74 - 106 [facility] Comment on above: Performed By: #### 2 12471 #### [facility],[address] [place] [address] 18389 Potassium [Moles/Vol] 3.5 mmol/L Normal 3.5 - 5.1 [facility] Comment on above: Performed By: #### 2 92825 #### [facility],[address] [place] [address] 94360 Sodium [Moles/Vol] 139 mmol/L Normal 136 - 145 [facility] Comment on above: Performed By: #### 2 54515 #### [facility],[address] [place] [address] 07277 Urea nitrogen [Mass/Vol] 25 mg/dL High 6 - 20 [facility] Comment on above: Performed By: #### 2 32851 #### [facility],[address] [place] [address] 00465 HGB A1C [CCL]on 08-26-2019 HbA1c (Bld) [Mass fraction] 117 mg/dL Normal [facility] Comment on above: Result Comment: eAG: (Estimated average glucose) is a calculated value from HgbA1c and is field service representative of the average blood glucose level in the last 2-3 month period. [facility] [address] [place] [address] Peyton Lang M.D. [id number] Performed By: #### 2 90097 #### [place] [id number] HbA1c (Bld) [Mass fraction] 5.7 % High 4.3-5.6 [facility] Comment on above: Result Comment: Amer [place] Diabetes Association guidelines indicate that patients with HgbA1c in the range 5.7-6.4% are at increased risk for development of diabetes, and intervention by lifestyle modification may be beneficial. HgbA1c greater or equal to 6.5% is considered diagnostic of diabetes. Performed By: #### 2 39957 #### [facility],[address] [place] [address] 63169 Hemoglobin A1con 08-26-2019 HbA1c (Bld) [Mass fraction] 5.7 % High 4.3-5.6 [facility] Comment on above: Performed By: #### H BA1C #### [facility] [address] [place], [place] [address] HbA1c (Bld) [Mass fraction] 117 mg/dL Normal [facility] Comment on above: Performed By: #### H BA1C #### [facility] [address] [place], [place] [address] RENAL FUNCTION PANELon 08-14 Albumin [Mass/Vol] 3.2 g/dL Low 3.4 - 4.8 [facility] Comment on above: Performed By: #### 2 82420 #### [facility],[address] [place] [address] 98497 B/C RATIO 13 ratio Normal 0 - 30 [facility] Comment on above: Performed By: #### 2 04240 #### [facility],[address] [place] [address] 12624 Calcium [Mass/Vol] 8.8 mg/dL Normal 8.6 - 10.2 [facility] Comment on above: Performed By: #### 2 31688 #### [facility],[address] [place] [address] 23593 Chloride [Moles/Vol] 105 mmol/L Normal 98 - 107 [facility] Comment on above: Performed By: #### 2 95364 #### [facility],[address] [place] [address] 03036 CO2 [Moles/Vol] 29.8 mmol/L Normal 21.0 - 31.0 [facility] Comment on above: Performed By: #### 2 38973 #### [facility],[address] [place] [address] 94024 Creatinine [Mass/Vol] 2.0 mg/dL High 0.7 - 1.3 [facility] Comment on above: Performed By: #### 2 25743 #### [facility],[address] [place] [address] 15118 Glucose [Mass/Vol] 78 mg/dL Normal 74 - 106 [facility] Comment on above: Performed By: #### 2 50670 #### [facility],[address] [place] [address] 47253 Phosphate [Mass/Vol] 4.8 mg/dL Normal 2.7 - 4.9 [facility] Comment on above: Performed By: #### 2 11887 #### [facility],[address] [place] [address] 98022 Potassium [Moles/Vol] 3.9 mmol/L Normal 3.5 - 5.1 [facility] Comment on above: Performed By: #### 2 88660 #### [facility],[address] [place] [address] 45442 RENAL FUNCTION PANEL Normal [facility] Comment on above: Result Comment: JESSICA L FUNCTION PANEL Performed By: #### 2 73437 #### [facility],[address] [place] [address] 30744 Sodium [Moles/Vol] 141 mmol/L Normal 136 - 145 [facility] Comment on above: Performed By: #### 2 [id number] #### [facility],[address] [place] [address] 89250 Urea nitrogen [Mass/Vol] 25 mg/dL High 6 - 20 [facility] Comment on above: Performed By: #### 2 03920 #### [facility],[address] [place] [place] [address] 94086 CBC (NO DIFF)on 08-06-2019 CBC (NO DIFF) Normal [facility] Comment on above: Result Comment: CBC( WITHOUT DIFFERENTIAL) Performed By: #### 2 19541 #### [facility],[address] [place] [place] [address] 23175 Erythrocyte distribution width (RBC) [Ratio] 13.2 % Normal 12.0 - 15.6 [facility] Comment on above: Performed By: #### 2 51023 #### [facility],[address] [place] [place] [address] 69098 Hematocrit (Bld) [Volume fraction] 37.7 % Low 40.0 - 52.0 [facility] Comment on above: Performed By: #### 2 58155 #### [facility],[address] [place] [place] [address] 56993 Hemoglobin (Bld) [Mass/Vol] 12.9 g/dL Low 13.0 - 17.5 [facility] Comment on above: Performed By: #### 2 44051 #### [facility],[address] [place] [place] [address] 23061 MCH (RBC) [Entitic mass] 32 pg Normal 27 - 33 [facility] Comment on above: Performed By: #### 2 36312 #### [facility],[address] [place] [address] 25275 MCHC (RBC) [Mass/Vol] 34 X10 3 Normal 32 - 36 [facility] Comment on above: Performed By: #### 2 18376 #### [facility],[address] [place] [address] 93778 MCV (RBC) [Entitic vol] 94 fL Normal 81 - 98 [facility] Comment on above: Performed By: #### 2 65878 #### [facility],[address] [place] [place] [address] 56610 Platelet mean volume (Bld) [Entitic vol] 7.3 fL Normal 6.4 - 10.5 [facility] Comment on above: Performed By: #### 2 86507 #### [facility],[address] [place] [place] [address] 95962 Platelets (Bld) [#/Vol] 166 x10EE3/UL Normal 150 - 450 [facility] Comment on above: Performed By: #### 2 88365 #### [facility],[address] [place] [address] 01714 RBC (Bld) [#/Vol] 4.00 x 10EE6/UL Low 4.50 - 6.00 [facility] Comment on above: Performed By: #### 2 96674 #### [facility],[address] [place] [address] 23685 WBC (Bld) [#/Vol] 8.7 x 10EE3/UL Normal 4.5 - 10.8 [facility] Comment on above: Performed By: #### 2 95224 #### [facility],[address] [place] [address] 97381 CULTURE URINEon 08-06-2019 CULTURE URINE CULTURE URINE _URINE CULTURE_ M I C R O B I O L O G Y R E P O R T FINAL Antimicrobial Susceptibility and Organism Identification Report Specimen Number : [id number] Requested : 08/06/19 Specimen Source : CLEAN CATCH URINE Collected : 08/06/19 03:10 [place] of [place]olation : MEME HUANG Received : 08/06/19 03:10 Requesting Physician : FLORECITA ------ Patient/Specimen Tests and Comments Specimen Comments FINAL REPORT: NO GROWTH AT 48 HOURS ------ Tech : Source : CLEAN CATCH URINE ID # : [id number] FINAL Report Date : / / : Collected : 08/06/19 03:10 08/08/19.1104.BKO. 08/07/19.0711.JLN. 08/08/19.1105.[employer] PLETE Normal [facility] Comment on above: Performed By: #### 2 98214 #### [facility],[address] [place] [address] LITHIUMon 08-06-2019 [place] [Moles/Vol] 0.6 mmol/L Normal 0.6 - 1.2 [facility] Comment on above: Performed By: #### 2 08916 #### [facility],[address] [place] [address] MR MRI BRAIN W/O CONTRASTon 08-06-2019 MR MRI BRAIN W/O CONTRAST [facility] [place] [address] Patient: REGGIE LEÓN Phone#: : 1965 Age: 54 Gender: M Pt. Type: Out Account: [id number] Location: Ordering: HODA BERNABE Exam Date: 08/06/2019/8:56 Family Phys: Charge Code: [id number] Physician: [place] Order #: [id number] DLP Dose#: PROCEDURE: MRI BRAIN WITHOUT CONTRAST [...] Momin MD on 08/06/2019 at 9:51 Normal [facility] RENAL FUNCTION PANELon 08-06 Albumin [Mass/Vol] 3.3 g/dL Low 3.4 - 4.8 [facility] Comment on above: Performed By: #### 2 57411 #### [place] [id number] B/C RATIO 11 ratio Normal 0 - 30 [facility] Comment on above: Performed By: #### 2 05248 #### [address] [address] Calcium [Mass/Vol] 8.9 mg/dL Normal 8.6 - 10.2 [facility] Comment on above: Performed By: #### 2 09068 #### [address] [address] Chloride [Moles/Vol] 107 mmol/L Normal 98 - 107 [facility] Comment on above: Performed By: #### 2 66250 #### [address] [address] CO2 [Moles/Vol] 26.8 mmol/L Normal 21.0 - 31.0 [facility] Comment on above: Performed By: #### 2 22290 #### [address] [address] Creatinine [Mass/Vol] 2.2 mg/dL High 0.7 - 1.3 [facility] Comment on above: Performed By: #### 2 76115 #### [facility],[address] [place] [place] [address] 83652 Glucose [Mass/Vol] 84 mg/dL Normal 74 - 106 [facility] Comment on above: Performed By: #### 2 58045 #### [facility],[address] [place] [address] 07725 Phosphate [Mass/Vol] 3.9 mg/dL Normal 2.7 - 4.9 [facility] Comment on above: Performed By: #### 2 07730 #### [facility],[address] [place] [address] 01145 Potassium [Moles/Vol] 4.1 mmol/L Normal 3.5 - 5.1 [facility] Comment on above: Performed By: #### 2 83181 #### [facility],[address] [place] [place] [address] 88891 RENAL FUNCTION PANEL Normal [facility] Comment on above: Result Comment: JESSICA L FUNCTION PANEL Performed By: #### 2 63372 #### [facility],[address] [place] [place] [address] 19441 Sodium [Moles/Vol] 141 mmol/L Normal 136 - 145 [facility] Comment on above: Performed By: #### 2 11370 #### [facility],[address] [place] [place] [address] 99014 Urea nitrogen [Mass/Vol] 25 mg/dL High 6 - 20 [facility] Comment on above: Performed By: #### 2 36410 #### [facility],[address] [place] [place] [address] 51733 URINALYSISon 08-06-2019 Bilirubin [Mass/Vol] Negative Normal NORMAL: NEGATIVE [facility] Comment on above: Performed By: #### 2 25799 #### [facility],[address] [place] [place] [address] 32581 Blood Negative Normal NORMAL: NEGATIVE [facility] Comment on above: Performed By: #### 2 69778 #### [facility],[address] [place] [place] [address] 99076 Clarity (U) clear Normal NORMAL: CLEAR [facility] Comment on above: Performed By: #### 2 28921 #### [facility],[address] [place], [place] [id number] Color (U) p.yel Normal NORMAL: YELLOW [facility] Comment on above: Performed By: #### 2 58997 #### [facility],[address] [place], [place] [id number] Glucose [Mass/Vol] NORM Normal NORMAL: NORMAL [facility] Comment on above: Performed By: #### 2 93117 #### [facility],[address] [place], [place] [id number] Ketone Negative Normal NORMAL: NEGATIVE [facility] Comment on above: Performed By: #### 2 84584 #### [facility],[address] [place], [place] [id number] Microscopic NOT Normal [facility] Comment on above: Performed By: #### 2 31248 #### [facility],[address] [place] [place] [address] 43499 Nitrite Ql (U) Negative Normal NORMAL: NEGATIVE [facility] Comment on above: Performed By: #### 2 29731 #### [facility],[address] [place] [address] 52651 pH (Bld) 8 Normal NORMAL: 5.0-8.0 [facility] Comment on above: Performed By: #### 2 06011 #### [facility],[address] [place] [address] 62765 Protein (U) [Mass/Vol] Negative Normal JENN L: NEGATIVE [facility] Comment on above: Performed By: #### 2 03534 #### [facility],[address] [place] [address] Sp [place] 1.010 Normal NORMAL: 1.010-1.030 [facility] Comment on above: Performed By: #### 2 53875 #### [facility],[address] [place] [address] Specimen type Nom (Spec) Clean catch Normal [facility] Comment on above: Performed By: #### 2 41273 #### [facility],[address] [place] [address] Urobilinog NORM Normal NORMAL: NORMAL [facility] Comment on above: Performed By: #### 2 68638 #### [place] [address] WBC (Bld) [#/Vol] Negative Normal NORMAL: NEGATIVE [facility] Comment on above: Performed By: #### 2 01876 #### [place] [address] URINE CREATININE AND PROTEIN RATIOon 08-06-2019 CREATININE UR 35.5 mg/dl Normal [facility] Comment on above: Performed By: #### 2 46145 #### [place] [address] PC RATIO 0.11 mg/dL Normal 0.00 - 10.00 [facility] Comment on above: Performed By: #### 2 64938 #### [place] [id number] Protein (U) [Mass/Vol] mg/dL Normal 0.00 - 10.00 [facility] Comment on above: Performed By: #### 2 97185 #### [place] [id number] Ammoniaon 03-19-2019 Ammonia mass conc (P) 34 umol/L Normal 16-60 [facility] Comment on above: Performed By: #### L ITH #### [facility] [address] [place] [address] Basic Metabolic Panelon 05-0 Anion gap molar conc 13 mmol/L Normal 9-15 [facility] Comment on above: Result Comment: Effe ctive: 12/21/2018 New reference range for this analyte has been established. Performed By: #### L ITH #### [facility] [address] [place] [address] Calcium mass conc 8.8 mg/dL Normal 8.5-9.9 [facility] Comment on above: Result Comment: Effe ctive: 12/21/2018 New reference range for this analyte has been established. Performed By: #### L ITH #### [facility] [address] [place] [address] Chloride molar conc 106 mmol/L Normal 95-107 [facility] Comment on above: Result Comment: Effe ctive: 12/21/2018 New reference range for this analyte has been established. Performed By: #### L ITH #### [facility] [address] [place] [address] CO2 molar conc 22 mmol/L Normal 20-31 [facility] Comment on above: Result Comment: Effe ctive: 12/21/2018 New reference range for this analyte has been established. Performed By: #### L ITH #### [facility] [address] [place] [address] Creatinine mass conc 1.78 mg/dL Critically high 0.70-1.20 [facility] Comment on above: Performed By: #### L ITH #### [facility] [address] [place] [address] GFR/1.73 sq M predicted among blacks MDRD vol rate/area (S/P/Bld) 48.1 mL/min/{1.73_m2} Low >60 [facility] Comment on above: Result Comment: >60 mL/min/1.73m2 EGFR, calc. for ages 18 and older using the MDRD formula (not corrected for weight), is valid for stable renal function. Performed By: #### L ITH #### [facility] [address] [place] [address] GFR/1.73 sq M.predicted MDRD vol rate/area 39.8 mL/min/{1.73_m2} Low >60 [facility] Comment on above: Result Comment: >60 mL/min/1.73m2 EGFR, calc. for ages 18 and older using the MDRD formula (not corrected for weight), is valid for stable renal function. Performed By: #### L ITH #### [facility] [address] [place] [address] Glucose mass conc 84 mg/dL Normal 70-99 [facility] Comment on above: Result Comment: Effe ctive: 12/21/2018 New reference range for this analyte has been established. Performed By: #### L ITH #### [facility] [address] [place] [address] Potassium molar conc 4.4 mmol/L Normal 3.4-4.9 [facility] Comment on above: Result Comment: Effe ctive: 12/21/2018 New reference range for this analyte has been established. Performed By: #### L ITH #### [facility] [address] [place] [address] Sodium molar conc 141 mmol/L Normal 135-144 [facility] Comment on above: Result Comment: Effe ctive: 12/21/2018 New reference range for this analyte has been established. Performed By: #### L ITH #### [facility] [address] [place] [address] Urea nitrogen mass conc 25 mg/dL Critically high 6-20 [facility] Comment on above: Performed By: #### L ITH #### [facility] [address] [place] [address] Valproic Acid /Depakene Leve rahul 03-19-2019 Protein mass conc 62.5 ug/mL Normal 50.0-100.0 [facility] Comment on above: Performed By: #### L ITH #### [facility] [address] [place] [address] Basic Metabolic Panelon 05-0 Anion gap molar conc 14 mmol/L Normal 9-15 [facility] Comment on above: Result Comment: Effe ctive: 12/21/2018 New reference range for this analyte has been established. Performed By: #### L ITH #### [facility] [address] [place] [address] Calcium mass conc 9.1 mg/dL Normal 8.5-9.9 [facility] Comment on above: Result Comment: Effe ctive: 12/21/2018 New reference range for this analyte has been established. Performed By: #### L ITH #### [facility] [address] [place] [address] Chloride molar conc 107 mmol/L Normal 95-107 [facility] Comment on above: Result Comment: Effe ctive: 12/21/2018 New reference range for this analyte has been established. Performed By: #### L ITH #### [facility] [address] [place] [address] CO2 molar conc 22 mmol/L Normal 20-31 [facility] Comment on above: Result Comment: Effe ctive: 12/21/2018 New reference range for this analyte has been established. Performed By: #### L ITH #### [facility] [address] [place] [address] Creatinine mass conc 2.32 mg/dL Critically high 0.70-1.20 [facility] Comment on above: Performed By: #### L ITH #### [facility] [address] [place] [address] GFR/1.73 sq M predicted among blacks MDRD vol rate/area (S/P/Bld) 35.4 mL/min/{1.73_m2} Low >60 [facility] Comment on above: Result Comment: >60 mL/min/1.73m2 EGFR, calc. for ages 18 and older using the MDRD formula (not corrected for weight), is valid for stable renal function. Performed By: #### L ITH #### [facility] [address] [place] [address] GFR/1.73 sq M.predicted MDRD vol rate/area 29.3 mL/min/{1.73_m2} Low >60 [facility] Comment on above: Result Comment: >60 mL/min/1.73m2 EGFR, calc. for ages 18 and older using the MDRD formula (not corrected for weight), is valid for stable renal function. Performed By: #### L ITH #### [facility] [address] [place] [address] Glucose mass conc 97 mg/dL Normal 70-99 [facility] Comment on above: Result Comment: Effe ctive: 12/21/2018 New reference range for this analyte has been established. Performed By: #### L ITH #### [facility] [address] [place] [address] Potassium molar conc 4.5 mmol/L Normal 3.4-4.9 [facility] Comment on above: Result Comment: Effe ctive: 12/21/2018 New reference range for this analyte has been established. Performed By: #### L ITH #### [facility] [address] [place] [address] Sodium molar conc 143 mmol/L Normal 135-144 [facility] Comment on above: Result Comment: Effe ctive: 12/21/2018 New reference range for this analyte has been established. Performed By: #### L ITH #### [facility] [address] [place] [address] Urea nitrogen mass conc 29 mg/dL Critically high 6-20 [facility] Comment on above: Performed By: #### L ITH #### [facility] [address] [place] [address] Basic Metabolic Panelon 05-0 Anion gap molar conc 10 mmol/L Normal 9-15 [facility] Comment on above: Result Comment: Effe ctive: 12/21/2018 New reference range for this analyte has been established. Performed By: #### L ITH #### [facility] [address] [place] [address] Calcium mass conc 8.7 mg/dL Normal 8.5-9.9 [facility] Comment on above: Result Comment: Effe ctive: 12/21/2018 New reference range for this analyte has been established. Performed By: #### L ITH #### [facility] [address] [place] [address] Chloride molar conc 109 mmol/L Critically high 95-107 [facility] Comment on above: Result Comment: Effe ctive: 12/21/2018 New reference range for this analyte has been established. Performed By: #### L ITH #### [facility] [address] [place] [address] CO2 molar conc 24 mmol/L Normal 20-31 [facility] Comment on above: Result Comment: Effe ctive: 12/21/2018 New reference range for this analyte has been established. Performed By: #### L ITH #### [facility] [address] [place] [address] Creatinine mass conc 1.77 mg/dL Critically high 0.70-1.20 [facility] Comment on above: Performed By: #### L ITH #### [facility] [address] [place] [address] GFR/1.73 sq M predicted among blacks MDRD vol rate/area (S/P/Bld) 48.4 mL/min/{1.73_m2} Low >60 [facility] Comment on above: Result Comment: >60 mL/min/1.73m2 EGFR, calc. for ages 18 and older using the MDRD formula (not corrected for weight), is valid for stable renal function. Performed By: #### L ITH #### [facility] [address] [place] [address] GFR/1.73 sq M.predicted MDRD vol rate/area 40.0 mL/min/{1.73_m2} Low >60 [facility] Comment on above: Result Comment: >60 mL/min/1.73m2 EGFR, calc. for ages 18 and older using the MDRD formula (not corrected for weight), is valid for stable renal function. Performed By: #### L ITH #### [facility] [address] [place] [address] Glucose mass conc 95 mg/dL Normal 70-99 [facility] Comment on above: Result Comment: Effe ctive: 12/21/2018 New reference range for this analyte has been established. Performed By: #### L ITH #### [facility] [address] [place] [address] Potassium molar conc 4.8 mmol/L Normal 3.4-4.9 [facility] Comment on above: Result Comment: Effe ctive: 12/21/2018 New reference range for this analyte has been established. Performed By: #### L ITH #### [facility] [address] [place] [address] Sodium molar conc 143 mmol/L Normal 135-144 [facility] Comment on above: Result Comment: Effe ctive: 12/21/2018 New reference range for this analyte has been established. Performed By: #### L ITH #### [facility] [address] [place] [address] Urea nitrogen mass conc 25 mg/dL Critically high 6-20 [facility] Comment on above: Performed By: #### L ITH #### [facility] [address] [place] [address] Ammoniaon 03-12-2019 Ammonia mass conc (P) 20 umol/L Normal 16-60 [facility] Comment on above: Performed By: #### N H3 #### [facility] [address] [place] [address] Basic Metabolic Panelon 04- Anion gap molar conc 14 mmol/L Normal 9-15 [facility] Comment on above: Result Comment: Effe ctive: 12/21/2018 New reference range for this analyte has been established. Performed By: #### L ITH #### [facility] [address] [place] [address] Calcium mass conc 9.1 mg/dL Normal 8.5-9.9 [facility] Comment on above: Result Comment: Effe ctive: 12/21/2018 New reference range for this analyte has been established. Performed By: #### L ITH #### [facility] [address] [place] [address] Chloride molar conc 109 mmol/L Critically high 95-107 [facility] Comment on above: Result Comment: Effe ctive: 12/21/2018 New reference range for this analyte has been established. Performed By: #### L ITH #### [facility] [address] [place] [address] CO2 molar conc 24 mmol/L Normal 20-31 [facility] Comment on above: Result Comment: Effe ctive: 12/21/2018 New reference range for this analyte has been established. Performed By: #### L ITH #### [facility] [address] [place] [address] Creatinine mass conc 1.94 mg/dL Critically high 0.70-1.20 [facility] Comment on above: Performed By: #### L ITH #### [facility] [address] [place] [address] GFR/1.73 sq M predicted among blacks MDRD vol rate/area (S/P/Bld) 43.6 mL/min/{1.73_m2} Low >60 [facility] Comment on above: Result Comment: >60 mL/min/1.73m2 EGFR, calc. for ages 18 and older using the MDRD formula (not corrected for weight), is valid for stable renal function. Performed By: #### L ITH #### [facility] [address] [place] [address] GFR/1.73 sq M.predicted MDRD vol rate/area 36.0 mL/min/{1.73_m2} Low >60 [facility] Comment on above: Result Comment: >60 mL/min/1.73m2 EGFR, calc. for ages 18 and older using the MDRD formula (not corrected for weight), is valid for stable renal function. Performed By: #### L ITH #### [facility] [address] [place] [address] Glucose mass conc 90 mg/dL Normal 70-99 [facility] Comment on above: Result Comment: Effe ctive: 12/21/2018 New reference range for this analyte has been established. Performed By: #### L ITH #### [facility] [address] [place] [address] Potassium molar conc 4.5 mmol/L Normal 3.4-4.9 [facility] Comment on above: Result Comment: Effe ctive: 12/21/2018 New reference range for this analyte has been established. Performed By: #### L ITH #### [facility] [address] [place] [address] Sodium molar conc 147 mmol/L Critically high 135-144 [facility] Comment on above: Result Comment: Effe ctive: 12/21/2018 New reference range for this analyte has been established. Performed By: #### L ITH #### [facility] [address] [place] [address] Urea nitrogen mass conc 27 mg/dL Critically high - [facility] Comment on above: Performed By: #### L ITH #### [facility] [address] [place] [address] [place] Levelon 03-12-2019 [place] molar conc 0.8 mmol/L Normal 0.6-1.2 [facility] Comment on above: Performed By: #### L ITH #### [facility] [address] [place] [address] Valproic Acid /Depakene Leve rahul 03-12-2019 Protein mass conc 70.6 ug/mL Normal 50.0-100.0 [facility] Comment on above: Performed By: #### L ITH #### [facility] [address] [place] [address] Basic Metabolic Panelon - Anion gap molar conc 13 mmol/L Normal 9-15 [facility] Comment on above: Result Comment: Effe ctive: 12/21/2018 New reference range for this analyte has been established. Performed By: #### B MP #### [facility] [address] [place] [address] Calcium mass conc 8.9 mg/dL Normal 8.5-9.9 [facility] Comment on above: Result Comment: Effe ctive: 12/21/2018 New reference range for this analyte has been established. Performed By: #### B MP #### [facility] [address] [place] [address] Chloride molar conc 108 mmol/L Critically high 95-107 [facility] Comment on above: Result Comment: Effe ctive: 12/21/2018 New reference range for this analyte has been established. Performed By: #### B MP #### [facility] [address] [place] [address] CO2 molar conc 23 mmol/L Normal 20-31 [facility] Comment on above: Result Comment: Effe ctive: 12/21/2018 New reference range for this analyte has been established. Performed By: #### B MP #### [facility] [address] [place] [address] Creatinine mass conc 1.82 mg/dL Critically high 0.70-1.20 [facility] Comment on above: Performed By: #### B MP #### [facility] [address] [place] [address] GFR/1.73 sq M predicted among blacks MDRD vol rate/area (S/P/Bld) 46.9 mL/min/{1.73_m2} Low >60 [facility] Comment on above: Result Comment: >60 mL/min/1.73m2 EGFR, calc. for ages 18 and older using the MDRD formula (not corrected for weight), is valid for stable renal function. Performed By: #### B MP #### [facility] [address] [place] [address] GFR/1.73 sq M.predicted MDRD vol rate/area 38.8 mL/min/{1.73_m2} Low >60 [facility] Comment on above: Result Comment: >60 mL/min/1.73m2 EGFR, calc. for ages 18 and older using the MDRD formula (not corrected for weight), is valid for stable renal function. Performed By: #### B MP #### [facility] [address] [place] [address] Glucose mass conc 82 mg/dL Normal 70-99 [facility] Comment on above: Result Comment: Effe ctive: 12/21/2018 New reference range for this analyte has been established. Performed By: #### B MP #### [facility] [address] [place] [address] Potassium molar conc 4.2 mmol/L Normal 3.4-4.9 [facility] Comment on above: Result Comment: Effe ctive: 12/21/2018 New reference range for this analyte has been established. Performed By: #### B MP #### [facility] [address] [place] [address] Sodium molar conc 144 mmol/L Normal 135-144 [facility] Comment on above: Result Comment: Effe ctive: 12/21/2018 New reference range for this analyte has been established. Performed By: #### B MP #### [facility] [address] [place] [address] Urea nitrogen mass conc 28 mg/dL Critically high 6-20 [facility] Comment on above: Performed By: #### B MP #### [facility] [address] [place] [address] Lipid Panelon 03-09-2019 Cholesterol in HDL mass conc 30 mg/dL Low 40-59 [facility] Comment on above: Result [...] CHD Performed By: #### L IPID #### [facility] [address] [place] [address] Cholesterol in LDL mass conc 83 mg/dL Normal 0-129 [facility] Comment on above: Result Comment: ATP III LDL Classification is Optimal. Performed By: #### L IPID #### [facility] [address] [place] [address] Cholesterol mass conc 160 mg/dL Normal 0-199 [facility] Comment on above: Result Comment: ATP III Cholesterol classification is Desirable. Performed By: #### L IPID #### [facility] [address] [place] [address] Triglyceride mass conc 234 mg/dL Critically high 0-150 [facility] Comment on above: Result Comment: ATP III Triglycerides Classification is High. Effective: 12/21/2018 New reference range for this analyte has been established. Performed By: #### L IPID #### [facility] [address] [place] [address] Ammoniaon 03-04-2019 Ammonia mass conc (P) 35 umol/L Normal 16-60 [facility] Comment on above: Performed By: #### N H3 #### [facility] [address] [place] [address] [place] Levelon 03-04-2019 [place] molar conc 0.7 mmol/L Normal 0.6-1.2 [facility] Comment on above: Performed By: #### L ITH #### [facility] [address] [place] [address] TSH w/out Reflexon 9 Thyrotropin Qn 2.880 uIU/mL Normal 0.440-3.86 [facility] Comment on above: Result Comment: Effe ctive: 12/21/2018 New reference range for this analyte has been established. Performed By: #### T SH #### [facility] [address] [place] [address] VITAMIN Don 03-04-2019 VITAMIN D 33.1 ng/mL Normal 30.0-100.0 [facility] Comment on above: Result Comment: (30- 100 ng/mL) Optimum Level This assay accurately quantifies the sum of vitamin D3, 25-Hydroxy and vitamin D2, 25-Hyroxy. Performed By: #### V ITD #### [facility] [address] [place] [address] Valproic Acid /Depakene Leve rahul 03-04-2019 Protein mass conc 25.8 ug/mL Low 50.0-100.0 [facility] Comment on above: Performed By: #### V ALPR #### [facility] [address] [place] [address] Vitamin B12 and Folateon Cobalamin (Vitamin B12) mass conc 340 pg/mL Normal 232-1245 [facility] Comment on above: Performed By: #### B 12FO #### [facility] [address] [place] [address] Folate 10.2 ng/mL Normal 7.3-26.1 [facility] Comment on above: Result Comment: As o f 16, the methodology has changed. Results from this methodology should not be compared with results from previous methodology. Performed By: #### B 12FO #### [facility] [address] [place] [address] Creatinineon 06-06-2018 Creatinine 1.93 mg/dL High 0.58-0.96 [facility] Comment on above: Performed By: #### C RET1, TSH, LI ####[facility] [id number] [place], [place] [phone] eGFR (non-black) 27 . Normal [facility] Comment on above: Performed By: #### C RET1, TSH, LI ####[facility] [id number] [place], [place] [phone] eGFR- Amer. 33 Normal [facility] Comment on above: Performed By: #### C RET1, TSH, LI ####[facility] [id number] [place], [place] [phone] Lithiumon 06-06-2018 [place] 0.8 mmol/L Normal 0.6-1.2 [facility] Comment on above: Performed By: #### C RET1, TSH, LI ####[facility] [id number] [place], [place] [phone] TSHon 06-06-2018 Thyroid stimulating hormone (TSH) 2.350 uU/mL Normal 0.400-5.500 [facility] Comment on above: Performed By: #### C RET1, TSH, LI ####[facility] [id number] [place], [place] [phone] Culture, urine Bacteria identified Cx Nom (U) Culture exhibits no growth. [facility] Work Phone: Bacteria identified Cx Nom (U) Positive [facility] Work Phone: Bacteria identified Cx Nom (U) Actinomyces turicensis [facility] Work Phone: Bacteria identified Cx Nom (U) Streptococcus mitis [facility] Work Phone: Vital Signs Date Time Vital Sign Value Performing Clinician Facility 02-26-2025 11:40-0400 Diastolic blood pressure 76 mm[Hg] [facility] Work Phone: [facility] 02-26-2025 11:40-0400 Heart rate 75 /min [facility] Work Phone: [facility] 02-26-2025 11:40-0400 Respiratory rate 18 /min [facility] Work Phone: [facility] 02-26-2025 11:40-0400 SaO2% (BldA) [Mass fraction] 96 % [facility] Work Phone: [facility] 02-26-2025 11:40-0400 Systolic blood pressure 122 mm[Hg] [facility] Work Phone: [facility] 02-26-2025 09:00-0400 Body temperature 98.6 [degF] [facility] Work Phone: [facility] 02-12-2025 14:04-0400 Diastolic blood pressure 55 mm[Hg] [facility] Work Phone: [facility] 02-12-2025 14:04-0400 Heart rate 78 /min [facility] Work Phone: [facility] 02-12-2025 14:04-0400 Respiratory rate 18 /min [facility] Work Phone: [facility] 02-12-2025 14:04-0400 SaO2% (BldA) [Mass fraction] 95 % [facility] Work Phone: [facility] 02-12-2025 14:04-0400 Systolic blood pressure 128 mm[Hg] [facility] Work Phone: [facility] 02-12-2025 09:00-0400 Body temperature 98.6 [degF] [facility] Work Phone: [facility] 09-14-2024 08:49-0400 Body height 176.3 cm Dorota Smith MD Work Phone: [facility] 09-14-2024 08:49-0400 Body mass index (BMI) [Ratio] 39.27 kg/m2 Dorota Smith MD Work Phone: [facility] 09-14-2024 08:49-0400 Body temperature 97.3 [degF] Dorota Smith MD Work Phone: [facility] 09-14-2024 08:49-0400 Body weight 122.05 kg Dorota Smith MD Work Phone: [facility] 09-14-2024 08:49-0400 Diastolic blood pressure 65 mm[Hg] Dorota Smith MD Work Phone: [facility] 09-14-2024 08:49-0400 Heart rate 106 /min Dorota Smith MD Work Phone: [facility] 09-14-2024 08:49-0400 Respiratory rate 14 /min Dorota Smith MD Work Phone: [facility] 09-14-2024 08:49-0400 Systolic blood pressure 104 mm[Hg] Dorota Smith MD Work Phone: [facility] 08-09-2024 10:45-0400 Diastolic blood pressure 68 mm[Hg] [facility] Work Phone: [facility] 08-09-2024 10:45-0400 Heart rate 82 /min [facility] Work Phone: [facility] 08-09-2024 10:45-0400 Respiratory rate 18 /min [facility] Work Phone: [facility] 08-09-2024 10:45-0400 SaO2% (BldA) [Mass fraction] 96 % [facility] Work Phone: [facility] 08-09-2024 10:45-0400 Systolic blood pressure 125 mm[Hg] [facility] Work Phone: [facility] 08-09-2024 07:00-0400 Body temperature 98.4 [degF] [facility] Work Phone: [facility] 07-17-2024 11:09-0400 Body height 182.9 cm Anthony Olivares MD Work Phone: [facility] 07-17-2024 11:09-0400 Body mass index (BMI) [Ratio] 36.48 kg/m2 Anthony Olivares MD Work Phone: [facility] 07-17-2024 11:09-0400 Body weight 122 kg Anthony Olivares MD Work Phone: [facility] 07-17-2024 11:09-0400 Diastolic blood pressure 73 mm[Hg] Anthony Olivares MD Work Phone: [facility] 07-17-2024 11:09-0400 Heart rate 90 /min Anthony Olivares MD Work Phone: [facility] 07-17-2024 11:09-0400 Systolic blood pressure 106 mm[Hg] Anthony Olivares MD Work Phone: [facility] 01-26-2024 12:00-0400 Diastolic blood pressure 62 mm[Hg] [facility] Work Phone: [facility] 01-26-2024 12:00-0400 Heart rate 97 /min [facility] Work Phone: [facility] 01-26-2024 12:00-0400 Respiratory rate 18 /min [facility] Work Phone: [facility] 01-26-2024 12:00-0400 SaO2% (BldA) [Mass fraction] 96 % [facility] Work Phone: [facility] 01-26-2024 12:00-0400 Systolic blood pressure 110 mm[Hg] [facility] Work Phone: [facility] 01-26-2024 07:05-0400 Body temperature 98.6 [degF] [facility] Work Phone: [facility] 12-20-2023 09:51-0500 Body height 177.8 cm Anthony Olivares MD Work Phone: [facility] 12-20-2023 09:51-0500 Body temperature 97.7 [degF] Anthony Olivares MD Work Phone: [facility] 12-20-2023 09:51-0500 Body weight 126.4 kg Anthony Olivares MD Work Phone: [facility] 12-20-2023 09:51-0500 Diastolic blood pressure 68 mm[Hg] Anthony Olivares MD Work Phone: [facility] 12-20-2023 09:51-0500 Heart rate 116 /min Anthony Olivares MD Work Phone: [facility] 12-20-2023 09:51-0500 Systolic blood pressure 97 mm[Hg] Anthony Olivares MD Work Phone: [facility] 02-25-2023 11:04-0400 Body height 171.5 cm Luz Daniel MD Work Phone: [facility] 02-25-2023 11:04-0400 Body temperature 97.9 [degF] Luz Daniel MD Work Phone: [facility] 02-25-2023 11:04-0400 Body weight 146.69 kg Luz Daniel MD Work Phone: [facility] 02-25-2023 11:04-0400 Diastolic blood pressure 86 mm[Hg] Luz Daniel MD Work Phone: [facility] 02-25-2023 11:04-0400 Heart rate 93 /min Luz Daniel MD Work Phone: [facility] 02-25-2023 11:04-0400 Systolic blood pressure 125 mm[Hg] Luz Daniel MD Work Phone: [facility] 11-03-2022 13:05-0500 Body temperature 97.2 [degF] Douglaski 2 Work Phone: [facility] 11-03-2022 13:05-0500 Diastolic blood pressure 78 mm[Hg] Ashleigh 2 Work Phone: [facility] 11-03-2022 13:05-0500 Heart rate 89 /min Guki 2 Work Phone: [facility] 11-03-2022 13:05-0500 Respiratory rate 18 /min Dougl[place]i 2 Work Phone: [facility] 11-03-2022 13:05-0500 SaO2% (BldA) [Mass fraction] 95 % [place]i 2 Work Phone: [facility] 11-03-2022 13:05-0500 Systolic blood pressure 124 mm[Hg] [place]i 2 Work Phone: [facility] 11-03-2022 07:52-0500 Body weight 144.74 kg Dougl[place]i 2 Work Phone: [facility] 08-27-2022 10:46-0400 Body height 171.5 cm Luz Daniel MD Work Phone: [facility] 08-27-2022 10:46-0400 Body temperature 98.29 [degF] Luz Daniel MD Work Phone: [facility] 08-27-2022 10:46-0400 Body weight 146.06 kg Luz Daniel MD Work Phone: [facility] 08-27-2022 10:46-0400 Diastolic blood pressure 95 mm[Hg] Luz Daniel MD Work Phone: [facility] 08-27-2022 10:46-0400 Heart rate 109 /min Luz Daniel MD Work Phone: [facility] 08-27-2022 10:46-0400 Systolic blood pressure 132 mm[Hg] Luz Daniel MD Work Phone: [facility] 07-27-2022 15:53-0400 Body height 176.5 cm Anthony Olivares MD Work Phone: [facility] 07-27-2022 15:53-0400 Body weight 142.88 kg Anthony Olivares MD Work Phone: [facility] 07-27-2022 15:53-0400 Diastolic blood pressure 85 mm[Hg] Anthony Olivares MD Work Phone: [facility] 07-27-2022 15:53-0400 Heart rate 94 /min Anthony Olivares MD Work Phone: [facility] 07-27-2022 15:53-0400 Systolic blood pressure 128 mm[Hg] Anthony Olivares MD Work Phone: [facility] 05-05-2022 13:15-0400 Body temperature 97.2 [degF] Kidney 1 [facility] 05-05-2022 13:15-0400 Diastolic blood pressure 91 mm[Hg] Kidney 1 [facility] 05-05-2022 13:15-0400 Heart rate 116 /min Kidney 1 [facility] 05-05-2022 13:15-0400 Systolic blood pressure 157 mm[Hg] Kidney 1 [facility] 05-05-2022 07:40-0400 SaO2% (BldA) [Mass fraction] 95 % Kidney 1 [facility] 05-05-2022 07:36-0400 Body weight 140.57 kg Kidney 1 [facility] 11-04-2020 15:52-0500 Body Temperature 97.2 [degF] [facility] 11-04-2020 15:52-0500 BP Diastolic 74 mm[Hg] [facility] [place] 11-04-2020 15:52-0500 BP Systolic 113 mm[Hg] [facility] [place] 11-04-2020 15:52-0500 Pulse (Heart Rate) 92 /min [facility] 11-04-2020 15:52-0500 Pulse Oximetry 96 % [facility] [place] 11-04-2020 15:52-0500 Respiratory Rate 17 /min [facility] 11-04-2020 05:31-0500 Body weight 114.31 kg Otf [place], [place] Encounters Encounter Date Encounter Type Care Provider Facility Start: 08-28-2025 ambulatory ALFREDO PHIPPS Facility:[facility] Start: 08-27-2025 ambulatory Adam CHANDLER Fac ility:[facility] Start: 08-15-2025 End: 08-15-2025 ambulatory ANTHONY OLIVARES Facility:[facility] Start: 08-14-2025 ambulatory Alfredo CHANDLER Faci lity:[facility] Start: 08-14-2025 Registered Referred Alfredo Phipps - [place] [employer] Start: 08-09-2025 Registered Referred Alfredo Phipps - [place] [employer] Start: 08-09-2025 End: 08-09-2025 ambulatory Alfredo CHANDLER Facility:[facility] Start: 08-02-2025 Registered Referred Adam Ferraro -[place] [employer] Start: 08-02-2025 End: 08-02-2025 ambulatory Adam CHANDLER Facility:[facility] Start: 07-29-2025 Registered Referred Alfredo Phipps - [place] [employer] Start: 07-29-2025 End: 07-29-2025 ambulatory Alfredo CHANDLER Facility:[facility] Start: 07-02-2025 Registered Referred Lasha alicia MD -[place] [employer] Start: 07-02-2025 End: 07-02-2025 ambulatory Lasha CHANDLER Facility:[facility] Start: 07-01-2025 Registered Referred Adam Ferraro -[place] [employer] Start: 07-01-2025 End: 07-01-2025 ambulatory Adam CHANDLER Facility:[facility] Start: 06-27-2025 ambulatory Adam Wandamele CHANDLER Fac ility:[facility] Start: 06-27-2025 Registered Referred Adam Ferraro -[place] [employer] Start: 06-20-2025 Registered Referred Alfredo Phipps - [place] [employer] Start: 06-20-2025 End: 06-20-2025 ambulatory Alfredo CHANDLER Facility:[facility] Start: 06-19-2025 Registered Referred Alfredo Phipps - [place] [employer] Start: 06-19-2025 End: 06-19-2025 ambulatory Elgin Bal Facility:[facility] Start: 06-06-2025 End: 06-06-2025 ambulatory Julieta Luo RN [facility] Start: 06-05-2025 Registered Referred Adam Ferraro -[place] [employer] Start: 06-05-2025 End: 06-05-2025 ambulatory Adam CHANDLER Facility:[facility] Start: 05-28-2025 End: 05-28-[address] Elgin Bal MD Work Phone: -[place] [employer] Start: 05-28-2025 End: 05-28-2025 Departed Referred Adam Ferraro -[place] [employer] Start: 05-28-2025 Registered Referred Adam Ferraro -[place] [employer] Start: 05-28-2025 End: 05-28-2025 ambulatory Adam CHANDLER Facility:[facility] Start: 05-26-2025 Registered Referred Adam Ferraro -[place] [employer] Start: 05-26-2025 End: 05-26-2025 ambulatory Adam CHANDLER Facility:[facility] Start: 05-24-2025 ambulatory Adam CHANDLER Fac ility:[facility] Start: 05-24-2025 Registered Referred Adam Ferraro -[place] [employer] Start: 05-23-2025 End: 05-23-2025 Telemedicine consultation with patient Anthony Olivares MD Work Phone: [facility] Start: 05-23-2025 End: 05-27-2025 ambulatory Anthony Olivares MD Work Phone: [facility] Comment on above: 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); Stage 3b chronic kidney disease (HCC) Start: 05-02-2025 Registered Referred Adam Ferraro -[place] [employer] Start: 05-02-2025 End: 05-02-2025 ambulatory Adam CHANDLER Facility:[facility] Start: 04-26-2025 End: 04-26-[address] lEgin Bal MD Work Phone: -[place] [employer] Start: 04-26-2025 End: 04-26-2025 Departed Referred Alfredo Phipps -[place] [employer] Start: 04-26-2025 Registered Referred Alfredo Phipps - [place] [employer] Start: 04-26-2025 End: 04-26-2025 ambulatory Elgin Bal Facility:[facility] Start: 04-24-2025 ambulatory Adam CHANDLER Fac ility:[facility] Start: 04-24-2025 Registered Referred Adam Ferraro -[place] [employer] Start: 04-01-2025 End: 04-01-[address] Elgin Bal MD Work Phone: -[place] [employer] Start: 04-01-2025 End: 04-01-2025 Departed Referred Adam Ferraro -[place] [employer] Start: 04-01-2025 End: 04-01-2025 ambulatory Adam CHANDLER Facility:[facility] Start: 03-27-2025 ambulatory Alfredo CHANDLER Faci lity:[facility] Start: 03-27-2025 Registered Referred Alfredo Phipps - [place] [employer] Start: 03-04-2025 End: 03-04-[address] Elgin Bal MD Work Phone: [facility] Work Phone: Start: 03-04-2025 End: 03-04-2025 Departed Referred Adam Ferraro -[place] [employer] Start: 03-04-2025 Registered Referred Adam Ferraro -[place] [employer] Start: 03-04-2025 End: 03-04-2025 ambulatory Adam Wandamele RAMESH Facility:[facility] Start: 02-27-2025 End: 02-27-[address] Elgin Bal MD Work Phone: [facility] Work Phone: Start: 02-27-2025 End: 02-27-2025 Departed Referred Alfredo Phipps -[place] [employer] Start: 02-27-2025 Registered Referred Alfredo Phipps - [place] [employer] Start: 02-26-2025 End: 02-27-2025 ambulatory ALFREDO PHIPPS Facility:[facility] Start: 02-26-2025 End: 02-26-2025 Subsequent hospital visit by physician Chair [facility] Work Phone: [facility] Start: 02-25-2025 End: 02-25-[address] Elgin Bal MD Work Phone: [facility] Work Phone: Start: 02-25-2025 End: 02-25-2025 Departed Referred Adam Ferraro -[place] [employer] Start: 02-25-2025 Registered Referred Adam Ferraro -[place] [employer] Start: 02-25-2025 End: 02-25-2025 ambulatory Adam Ferraro RAMESH Facility:[facility] Start: 02-12-2025 ambulatory ANTHONY Rivera ELISE Facility: [facility] Start: 02-12-2025 End: 02-12-2025 Subsequent hospital visit by physician Chair [facility] Work Phone: [facility] Start: 02-11-2025 End: 02-11-[address] Elgin Bal MD Work Phone: [facility] Work Phone: Start: 02-11-2025 End: 02-11-2025 Departed Referred Alfredo Wayros -[place] [employer] Start: 02-11-2025 Registered Referred Alfredo Shultzsaros - [place] [employer] Start: 02-11-2025 End: 02-11-2025 ambulatory Alfredo Wayshawna CHANDLER Facility:[facility] Start: 02-06-2025 End: 02-06-[address] Elgin Bal MD Work Phone: [facility] Work Phone: Start: 02-06-2025 End: 02-06-2025 Departed Referred Alfredo Wayros -[place] [employer] Start: 02-06-2025 Registered Referred Alfredo Wayros - [place] [employer] Start: 02-06-2025 End: 02-06-2025 ambulatory [facility] Facility:[facility] Start: 01-30-2025 End: 01-30-2025 Departed Referred Adam Ferraro -[place] [employer] Start: 01-30-2025 End: 01-30-2025 Orders Only Anthony Olivares MD Work Phone: [facility] Start: 01-30-2025 Registered Referred Adam Ferraro -[place] [employer] Start: 01-30-2025 End: 01-30-2025 ambulatory Adam CHANDLER Facility:[facility] Start: 01-25-2025 End: 01-25-[address] Elgin Bal MD Work Phone: [facility] Work Phone: Start: 01-25-2025 End: 01-25-2025 Departed Referred Adam Ferraro -[place] [employer] Start: 01-25-2025 End: 01-25-2025 ambulatory [facility] Facility:[facility] Start: 01-03-2025 End: 01-03-[address] Elgin Bal MD Work Phone: [facility] Work Phone: Start: 01-03-2025 End: 01-03-2025 Departed Referred Adam Ferraro -[place] [employer] Start: 01-03-2025 Registered Referred Adam Ferraro -[place] [employer] Start: 01-02-2025 End: 01-03-[address] Elgin Bal MD Work Phone: [facility] Work Phone: Start: 01-02-2025 End: 01-02-2025 Departed Referred Adam Ferraro -[place] [employer] Start: 01-02-2025 Registered Referred Adam Jasmine -[place] [employer] Start: 01-02-2025 End: 01-02-2025 ambulatory [facility] Facility:[facility] Start: 12-28-2024 End: 12-28-[address] Elgin Bal MD Work Phone: [facility] Work Phone: Start: 12-28-2024 End: 12-28-2024 Departed Referred Adam Ferraro -[place] [employer] Start: 12-28-2024 End: 12-28-2024 ambulatory [facility] Facility:[facility] Start: 11-27-2024 End: 11-27-2024 Departed Referred Adam Ferraro -[place] [employer] Start: 11-27-2024 End: 11-27-2024 ambulatory Adam CHANDLER Facility:[facility] Start: 11-20-2024 End: 11-23-2024 ambulatory Anthony Olivares MD Work Phone: [facility] Start: 11-15-2024 End: 11-15-2024 Departed Referred Adam Jasmine -[place] [employer] Start: 11-15-2024 End: 11-15-2024 ambulatory Adam Ferraro O[facility] Facility:[facility] Start: 09-27-2024 End: 09-27-2024 Departed Referred Adam Jasmine -[facility] Start: 09-27-2024 End: 09-27-2024 ambulatory Adam Ferraro OLS Facility:[facility] Start: 09-14-2024 End: 09-14-2024 Patient encounter procedure Dorota Smith MD Work Phone: [facility] Comment on above: 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); Rash and nonspecific skin eruption; 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) Start: 09-14-2024 End: 09-14-2024 ambulatory ALFREDO IGNACIOLeonie GEMASHAWNA Facility:[facility] Start: 08-09-2024 End: 08-09-2024 Subsequent hospital visit by physician Chair [facility] Work Phone: Infusion Center Comment on above: Rituximab Start: 07-17-2024 End: 07-20-2024 ambulatory Anthony Olivares MD Work Phone: [facility] Start: 07-17-2024 End: 07-17-2024 Patient encounter procedure Anthony Olivares MD Work Phone: [facility] Comment on above: 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); Stage 3b chronic kidney disease (HCC); Benign hypertension with chronic kidney disease Start: 05-21-2024 Telephone encounter Dorota hameed MD Work Phone: [facility]ology [facility] Arth[facility] Comment on above: [...] kidney disease Start: 02-03-2024 End: 02-03-2024 ambulatory [facility] Work Phone: Start: 02-03-2024 End: 02-03-2024 Departed Referred [facility] Start: 01-26-2024 End: 01-26-2024 Subsequent hospital visit by physician Chair [facility] Work Phone: Infusion Center Comment on above: Rituximab Start: 01-06-2024 End: 01-06-2024 ambulatory [facility] Work Phone: Start: 01-06-2024 End: 01-06-[address] [facility] Start: 12-29-2023 Orders Only Babak Drummond RN [facility] Start: 12-27-2023 Orders Only Anthony Olivares MD Work Phone: Kidney [facility] Start: 12-23-2023 Telephone encounter Nuria noyola RN Kidney Medicine Comment on above: Appointment Start: 12-20-2023 ambulatory Anthony Olivares MD Work Phone: [facility] Start: 12-20-2023 End: 12-20-2023 Patient encounter procedure Anthony Olivares MD Work Phone: [facility] Comment on above: 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); Stage 3b chronic kidney disease (HCC); Benign hypertension with chronic kidney disease Start: 12-09-2023 End: 12-09-2023 ambulatory [facility] Work Phone: Start: 12-09-2023 End: 12-09-[address] [facility] Start: 11-16-2023 End: 11-16-[address] [facility] Start: 11-16-2023 Registered Referred [facility] Start: 11-11-2023 End: 11-11-2023 ambulatory [facility] Work Phone: Start: 11-11-2023 End: 11-11-[address] [facility] Start: 11-11-2023 [facility]istered [facility] Start: 10-27-2023 End: 10-27-2023 ambulatory [facility] Work Phone: Start: 10-27-2023 End: 10-27-[address] [facility] Start: 10-14-2023 End: 10-14-2023 ambulatory [facility] Work Phone: Start: 10-14-2023 End: 10-14-2023 [facility] Start: 09-27-2023 End: 09-27-2023 ambulatory [facility] Work Phone: Start: 09-27-2023 End: 09-27-2023 [facility] Start: 09-27-2023 [facility] Start: 09-16-2023 End: 09-16-2023 ambulatory [facility] Work Phone: Start: 09-16-2023 End: 09-16-2023 [facility] Start: 08-29-2023 Telephone encounter Dorota hameed MD Work Phone: [facility] Comment on above: Patient Update Start: 08-26-2023 Telephone encounter Luz Daniel MD Work Phone: [facility] [place] Comment on above: NO SHOW Start: 08-19-2023 End: 08-19-2023 ambulatory [facility] Work Phone: Start: 08-19-2023 End: 08-19-2023 [facility] Start: 07-28-2023 End: 07-28-2023 [facility] Start: 07-28-2023 [facility] Start: 07-24-2023 [facility] Start: 07-22-2023 End: 07-22-2023 ambulatory [facility] Work Phone: Start: 07-22-2023 End: 07-22-2023 [facility] Start: 06-24-2023 End: 06-24-2023 ambulatory [facility] Work Phone: Start: 06-24-2023 End: 06-24-2023 [facility] Start: 06-24-2023 [facility] Start: 05-30-2023 End: 05-30-2023 ambulatory [facility] Work Phone: Start: 05-30-2023 End: 05-30-2023 [facility] Start: 05-30-2023 [facility] Start: 05-27-2023 End: 05-27-2023 ambulatory [facility] Work Phone: Start: 05-27-2023 End: 05-27-2023 [facility] Start: 05-27-2023 [facility] Start: 05-19-2023 End: 05-19-2023 ambulatory [facility] Work Phone: Start: 05-19-2023 End: 05-19-2023 [facility] Start: 05-19-2023 [facility] Start: 04-29-2023 End: 04-29-2023 ambulatory [facility] Work Phone: Start: 04-29-2023 End: 04-29-2023 [facility] Start: 04-29-2023 [facility] Start: 04-27-2023 End: 04-27-2023 ambulatory [facility] Work Phone: Start: 04-27-2023 End: 04-27-2023 [facility] Start: 04-04-2023 End: 04-04-2023 [facility] Start: 04-01-2023 End: 04-01-2023 [facility]ed [facility] Start: 03-04-2023 End: 03-04-2023 ambulatory [facility] Work Phone: Start: 03-04-2023 End: 03-04-2023 [facility] Start: 02-25-2023 End: 02-25-2023 Patient encounter procedure Luz Daniel MD Work Phone: [facility] [place] Comment on above: Rheumatoid arthritis involving both hands 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 rheumatoid factor (HCC) (Primary Dx); 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) Start: 02-25-2023 End: 02-25-2023 ambulatory [facility] Work Phone: Start: 02-25-2023 End: 02-25-2023 [facility]ed [facility] Start: 02-04-2023 End: 02-04-2023 ambulatory [facility] Work Phone: Start: 02-04-2023 End: 02-04-2023 [facility]ed [facility] Start: 02-04-2023 [facility] Start: 01-25-2023 End: 01-25-2023 ambulatory [facility] Work Phone: Start: 01-25-2023 End: 01-25-2023 [facility] Start: 01-25-2023 [facility] Start: 01-19-2023 End: 01-19-2023 [facility] Start: 01-19-2023 [facility] Start: 01-07-2023 End: 01-07-2023 ambulatory [facility] Work Phone: Start: 01-07-2023 End: 01-07-2023 [facility] Start: 01-07-2023 [facility] Start: 12-28-2022 End: 12-28-2022 ambulatory [facility] Work Phone: Start: 12-28-2022 End: 12-28-2022 [facility]ed [facility] Start: 12-28-2022 [facility] Start: 12-15-2022 End: 12-15-2022 [facility] Start: 12-15-2022 [facility] Start: 12-10-2022 End: 12-10-2022 ambulatory [facility] Work Phone: Start: 12-10-2022 End: 12-10-2022 [facility]ed [facility] Start: 11-17-2022 End: 11-17-2022 ambulatory [facility] Work Phone: Start: 11-17-2022 End: 11-17-2022 [facility]ed [facility] Start: 11-17-2022 [facility] Start: 11-12-2022 End: 11-12-2022 [facility] Start: 11-12-2022 [facility] Start: 11-03-2022 End: 11-03-2022 Patient encounter procedure Kidney Med Main Infusion Chair 1 Kidney Medicine Comment on above: 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) Start: 11-02-2022 Orders Only Adam Tee MD Work Phone: [facility] [place] Comment on above: 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) Start: 10-27-2022 End: 10-27-2022 ambulatory [facility] Work Phone: Start: 10-27-2022 End: 10-27-2022 Departed Referred [facility] Start: 10-27-2022 Registered Referred [facility] Start: 10-15-2022 End: 10-15-2022 Departed Referred [facility] Start: 10-15-2022 Registered Referred [facility] Start: 09-27-2022 End: 09-27-2022 ambulatory [facility] Work Phone: Start: 09-27-2022 End: 09-27-2022 Departed Referred [facility] Start: 09-27-2022 Registered Referred [facility] Start: 09-17-2022 End: 09-17-2022 ambulatory [facility] Work Phone: Start: 09-17-2022 End: 09-17-2022 Departed Referred [facility] Start: 09-17-2022 Registered Referred [facility] Start: 08-27-2022 End: 08-27-2022 Patient encounter procedure Luz Daniel MD Work Phone: [facility] [place] Comment on above: Rheumatoid arthritis involving both hands 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 rheumatoid factor (HCC) (Primary Dx) Start: 08-27-2022 End: 08-27-2022 Departed Referred [facility] Start: 08-27-2022 Registered Referred [facility] Start: 08-23-2022 End: 08-23-2022 ambulatory [facility] Work Phone: Start: 08-23-2022 End: 08-23-2022 Departed Referred [facility] Start: 08-23-2022 [facility] Start: 08-12-2022 End: 08-12-2022 ambulatory [facility] Work Phone: Start: 08-12-2022 End: 08-12-2022 Departed Referred [facility] Start: 07-28-2022 End: 07-28-2022 ambulatory [facility] Work Phone: Start: 07-28-2022 End: 07-28-2022 Departed Referred [facility] Start: 07-28-2022 Registered Referred [facility] Start: 07-27-2022 End: 07-27-2022 Patient encounter procedure Anthony Olivares MD Work Phone: Kidney Medicine [facility] Comment on above: 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); Stage 3a chronic kidney disease (HCC) Start: 07-27-2022 ambulatory Anthony Olivares MD Work Phone: [facility] Start: 07-15-2022 End: 07-15-2022 ambulatory [facility] Work Phone: Start: 07-15-2022 End: 07-15-2022 Departed Referred [facility] Start: 07-15-2022 [facility] Start: 06-28-2022 End: 06-28-2022 ambulatory [facility] Work Phone: Start: 06-28-2022 End: 06-28-2022 Departed Referred [facility] Start: 06-28-2022 [facility] Start: 06-17-2022 End: 06-17-2022 ambulatory [facility] Work Phone: Start: 06-17-2022 End: 06-17-[address] [facility] Start: 05-27-2022 End: 05-27-[address] [facility] Start: 05-20-2022 End: 05-20-[address] [facility] Start: 05-05-2022 Patient encounter procedure Anthony Olivares MD Work Phone: [facility] [place] Comment on above: Granulomatosis with polyangiitis with [...] (HCC) Start: 04-27-2022 End: 04-27-[address] [facility] Start: 04-27-2022 Registered Referred [facility] Start: 04-22-2022 End: 04-22-[address] [facility] [employer] Start: 04-22-2022 Registered Referred [facility] [facility] Start: 04-21-2022 End: 04-21-[address] [facility] Start: 04-21-2022 Registered Referred [facility] Start: 04-06-2022 End: 04-06-[address] [facility] Start: 04-06-2022 Registered [facility] Start: 04-05-2022 End: 04-05-2022 [facility] Start: 04-05-2022 [facility] Start: 04-02-2022 End: 04-02-2022 [facility] Start: 04-02-2022 [facility] Start: 03-30-2022 Orders Only Anthony Olivares MD Work Phone: [facility] Comment on above: Granulomatosis with polyangiitis, unspecified whether renal involvement (HCC) (Primary Dx) Start: 03-25-2022 End: 03-25-2022 [facility] Start: 03-25-2022 [facility] Start: 03-19-2022 End: 03-19-2022 [facility] Start: 03-19-2022 [facility] Start: 02-25-2022 End: 02-25-2022 [facility] Start: 02-25-2022 [facility] Start: 02-18-2022 End: 02-18-2022 [facility] Start: 01-28-2022 End: 01-28-2022 [facility] Start: 01-28-2022 [facility] Start: 01-25-2022 End: 01-25-2022 [facility] Start: 01-25-2022 [facility] Start: 01-04-2022 End: 01-04-2022 [facility] Start: 01-04-2022 [facility] Start: 12-07-2021 End: 12-07-[address] [facility] [employer] Start: 12-03-2021 Registered Referred [facility] [facility] Start: 11-09-2021 Registered Ref[facility] [facility] Start: 11-05-2021 Registered Referred [facility] [facility] Start: 10-28-2020 End: 11-04-2020 Evaluation and management of inpatient [place] Work Phone: [facility] [employer] Comment on above: Pneumonia due to COV ID-19 virus (Primary Dx); Hypoxia; Hypokalemia; Stage 3 chronic kidney disease, unspecified whether stage 3a or 3b CKD Start: 11-14-2019 Encounter for genera l adult medical examination without abnormal findings [facility] Start: 11-14-2019 End: 08-05-2020 Patient encounter procedure [facility] Start: 08-06-2019 End: 08-06-2019 Patient encounter procedure HODA BROWNING [facility] Start: 10-21-2009 End: 01-29-2013 Patient encounter status Ronny Polanco MD Work Phone: [facility] Encounter for genera l adult medical examination without abnormal findings [facility] Procedures Date Procedure Procedure Detail Performing Clinician Start: 08-14-[address] [place] [address] Elgin Bal MD Work Phone: Start: 08-14-2025 Serum inorganic phos phate measurement Dr. Elgin Bal MD Work Phone: Start: 08-02-[address] [place] [address] Elgin Bal MD Work Phone: Start: 07-29-2025 Serum inorganic phos phate measurement Dr. Elgin Bal MD Work Phone: Start: 07-29-2025 Vitamin D, 25-hydrox y measurement Dr. Elgin Bal MD Work Phone: Comment on above: Vitamin D StatusDefi ciency: <20 ng/mL (50nmol/L)Insufficiency: 20-30 ng/mL (50-75 nmol/L)Sufficiency: 30-100 ng/mL (75-250 nmol/L)Toxicity: >100 ng/mL (>250 nmol/L) Start: 07-02-[address] [place] [address] Elgin Bal MD Work Phone: Start: 06-19-[address] [place] [address] Elgin Bal MD Work Phone: Start: 06-19-2025 Serum inorganic phos phate measurement Dr. Elgin Bal MD Work Phone: Start: 05-26-2025 Urnls dip stick/tabl et reagent auto microscopy Dr. Elgin Bal MD Work Phone: Start: 05-26-[address] Keyur Bal MD Work Phone: Start: 05-02-[address] [place] [address] Elgin Bal MD Work Phone: Start: 04-24-[address] [place] [address] Elgin Bal MD Work Phone: Start: 04-24-2025 Serum inorganic phos phate measurement Dr. Elgin Bal MD Work Phone: Start: 04-01-[address] [place] [address] Elgin Bal MD Work Phone: Start: 02-27-[address] [place] [address] Elgin Bal MD Work Phone: Start: 01-30-[address] [place] [address] Elgin Bal MD Work Phone: Start: 01-03-[address] Elgin Bal MD Work Phone: Start: 01-03-2025 Urine microalbumin/creatinine ratio measurement Dr. Elgin Bal MD Work Phone: Comment on above: Test not performed Start: 01-02-2025 Assay of phosphorus inorganic Dr. Elgin Bal MD Work Phone: Start: 01-02-[address] [place] [address] Elgin Bal MD Work Phone: [...] Comment: URIN ALYSIS Performed By: #### [id number] #### [place] [id number] Start: 04-08-2020 Urinalysis HODA WYATT Comment on above: Result Comment: URIN ALYSIS Performed By: #### [id number] #### [facility],[address] [place] [address] Start: 02-04-2020 Urinalysis HODA WYATT Comment on above: Result Comment: URIN ALYSIS Performed By: #### [id number] #### [place] [id number] Start: 01-07-2020 Urinalysis HODA WYATT Comment on above: Result Comment: URIN ALYSIS Performed By: #### [id number] #### [place] [id number] Start: 12-10-2019 Urinalysis HODA EASLEY YOSELIN Comment on above: Result Comment: URIN ALYSIS Performed By: #### [id number] #### [place] [id number] Start: 11-05-2019 Urinalysis HODA GOODRICHELIJAH Comment on above: Result Comment: URIN ALYSIS Performed By: #### [id number] #### [place] [id number] Start: 10-08-2019 Urinalysis HODA EASLEY YOSELIN Comment on above: Result Comment: URIN ALYSIS Performed By: #### [id number] #### [place] [id number] Start: 09-10-2019 Urinalysis HODA EASLEY YOSELIN Comment on above: Result Comment: URIN ALYSIS Performed By: #### 2 [id number] #### [place] [id number] Start: 08-10-2019 Adult depression scr eening assessment Anthony Olivares MD Work Phone: Start: 08-06-2019 Urinalysis HODATERRELL EASLEY YOSELIN Comment on above: Result Comment: URIN ALYSIS Performed By: #### 2 [id number] #### [place] [id number] Start: 07-23-2019 Colonoscopy Anthony rosa MD Work Phone: Start: 08-09-2018 Lipid 1996 panel - S ellen or Plasma Luz Daniel MD Work Phone: Urine culture Urine culture Plan of Treatment Date Care Activity Detail Author Start: 12-20-2028 Lipid panel Lipid Screening [facility] Start: 12-20-2026 Diabetes Screening Diabetes Screenin g [facility] Start: 09-16-2025 End: 09-16-2025 Patient encounter procedure 09/16/2025 9:00 AM EST Office Visit [facility] General Rheumatology and Arthritis [address] [place] [address] [address] [place], [place] [phone] Dorota Smith MD [address] [place], [place] [id number] 6 months in office PA [facility] Comment on above: 6 months in office P A Start: 09-14-2025 BP Controlled (<130/80) BP Controlle d (<130/80) [facility] Start: 08-15-2025 End: 08-15-2025 Patient encounter procedure 08/15/2025 2:20 PM EDT Office Visit [facility] [address] [place] [id number] Anthony Olivares MD [address] [place], [place] [id number] f/u [facility] Comment on above: f/u Start: 07-17-2025 BP Controlled (<130/80) BP Controlle d (<130/80) [facility] Start: 07-15-2025 Influenza vaccination Influenza Vacc ine (#1) [facility] Start: 05-23-2025 End: 05-23-2025 Patient encounter procedure 05/23/2025 4:00 PM EDT Office Visit [facility] [address] [place] [id number] Anthony Olivares MD [address] [place] [address] Virtual f/u per Dr Olivares.I spoke with Nursing Facility where patient is at [facility] Comment on above: Virtual f/u per Dr Leonie herrera.I spoke with Nursing Facility where patient is at Start: 03-20-2025 End: 03-20-2025 Patient encounter procedure 03/20/2025 9:00 AM EDT Office Visit [facility] Rhe[facility]ology [facility] Arthritis [address] [place], [place] [phone] Leeann Lopez PA-C [address] [place], [place] [id number] 6 months in office PA [facility] Rhe[facility]ology [facility] Arth[facility] Comment on above: 6 months in office P A Start: 02-26-2025 End: 02-26-2025 Patient encounter procedure 02/26/2025 9:00 AM EDT Appointment Infusion [facility] [address] [place] [address] [address] Elise Jack, granulomatosis, () Infusion Center Comment on above: Dr Elise Jack, granulomatosis, () Start: 02-20-2025 Covid-19 Vaccine (9 - Pfizer risk ) Covid-19 Vaccine (9 - Pfizer risk ) [facility] Start: 12-20-2024 BP Controlled (<130/80) BP Controlle d (<130/80) [facility] Start: 12-20-2024 Complete blood count Hemoglobin/Timo tocrit [facility] Start: 12-20-2024 Creatinine measurement Serum Creatin ine [facility] Start: 11-20-2024 End: 11-20-2024 Patient encounter procedure 11/20/2024 11:00 AM EST Office Visit [facility] [address] [place] [id number] Anthony Olivares MD [address] [place] [address] follow up in October per Dr Olivares [facility] Comment on above: follow up in per Dr Olivares Start: 11-14-2024 Medicare Advantage Annual Wellness Visit Medicare Advantage Annual Wellness Visit [facility] Start: 10-17-2024 Covid-19 Vaccine () Covid-19 Vaccine () [facility] Start: 09-14-2024 End: 09-14-2024 Patient encounter procedure 09/14/2024 9:00 AM EDT Office Visit [facility] Rheumatology and Arthritis [address] [place], [place] [phone] Dorota Smith MD [address] [place], [place] [phone] RA/Trans from Dr Daniel to [facility] Comment on above: RA/Trans from Dr Ruben welsh to [facility] Start: 08-09-2024 End: 08-09-2024 Patient encounter procedure 08/09/2024 7:00 AM EDT Appointment Infusion Center [address] [place] [address] rituximab, M32.30 elise(RK) Infusion Center Comment on above: rituximab, M32.30 , elise(RK) Start: 07-17-2024 End: 07-17-2024 Patient encounter procedure 07/17/2024 11:20 AM EDT Office Visit [facility] [address] [address] Anthony Olivares MD [address] [place] [address] Vasculitis Renal follow up [facility] Comment on above: Vasculitis Renal fol low up Start: 07-15-2024 Covid-19 Vaccine ( season) Covid-19 Vaccine ( season) [facility] Start: 07-15-2024 Covid-19 Vaccine ( season) Covid-19 Vaccine ( season) [facility] Start: 07-15-2024 Influenza vaccination Influenza Vacc ine (#1) [facility] Start: 05-21-2024 End: 05-21-2024 Patient encounter procedure 05/21/2024 9:20 AM EDT Office Visit [facility] [facility]ology [facility] Arth[facility] [address] [place], [place] [id number] Dorota Smith MD [address] [place], [place] [address] RA/Trans from Dr Daniel to [facility] General Rheumatology and Arthritis Comment on above: RA/Trans from Dr Ruben welsh to [facility] Start: 03-09-2024 Lipid panel Lipid Screening [facility] Start: 02-21-2024 PROSTATE CANCER SCREENING DISCUSSION PROSTATE CANCER SCREENING DISCUSSION [facility] Start: 02-21-2024 Prostate specific antigen measurement Prostate Cancer Screening Discussion [facility] Start: 12-20-2023 End: 03-20-2024 25-hydroxyvitamin D3 [Mass/volume] in Serum or Plasma [facility] Work Phone: Comment on above: Expected: 12/20/2023 , Expires: 03/20/2024 Start: 12-12-2023 Covid-19 Vaccine () Covid-19 Vaccine () [facility] Start: 11-14-2023 Behavioral Health Screening Behavioral Health Screening [facility] Start: 11-14-2023 [facility] Start: 11-04-2023 Diabetes Screening Diabetes Screenin [facility] Start: 11-03-2023 BP CONTROLLED (<130/80) BP CONTROLLE D (<130/80) [facility] Start: 09-18-2023 DIABETES SCREEN DIABETES SCREEN [facility] Start: 09-18-2023 Diabetes Screening Diabetes Screenin g [facility] Start: 08-09-2023 Lipid 1996 panel - S ellen or Plasma Lipid Screening [facility] Start: 08-09-2023 LIPID SCREEN LIPID SCREEN [facility] Start: 07-15-2023 Covid-19 Vaccine ( season) Covid-19 Vaccine () [facility] Start: 07-15-2023 Influenza vaccination C [facility] Start: 2023 RSV Vaccine (1 - 1-d ose 60+ series) RSV Vaccine (1 - 1-dose 60+ series) [facility] Start: 2023 RSV Vaccine (1 - Ris k 60-74 years 1-dose series) RSV Vaccine (1 - Risk 60-74 years 1-dose series) [facility] Start: 11-14-2022 DEPRESSION ASSESSMENT DEPRESSION ASS ESSMENT [facility] Start: 11-03-2022 End: 11-03-2023 Chronic hepatitis differentiation between hepatitis B and C virus panel - Serum or Plasma HEP REMOTE PANEL BL Lab Routine 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) Expected: 11/03/2022, Expires: 11/03/2023 [facility] Work Phone: Comment on above: Expected: 11/03/2022 , Expires: 11/03/2023 Start: 07-23-2022 Colonoscopy COLONOSCOPY [facility] Start: 07-23-2022 COLORECTAL CANCER SCREENING COLORECTAL CANCER SCREENING [facility] Start: 07-23-2022 Screening for malign ant neoplasm of colon [facility] Start: 07-15-2022 Influenza vaccination INFLUENZA (#1) [facility] Start: 04-29-2022 COVID-19 VACCINE (6 - Booster for Pfizer series) COVID-19 VACCINE (6 - Booster for Pfizer series) [facility] Start: 01-04-2022 COVID-19 VACCINE (5 - Booster for Pfizer series) COVID-19 VACCINE (5 - Booster for Pfizer series) [facility] Start: 11-14-2021 DEPRESSION ASSESSMENT DEPRESSION ASS ESSMENT [facility] Start: 11-04-2021 Creatinine measurement [facility] Start: 11-04-2021 Potassium monitoring Potassium monit oring [facility] [place] Start: 11-02-2021 HEMOGLOBIN/HEMATOCRIT HEMOGLOBIN/HEM ATOCRIT [facility] Start: 09-18-2021 SERUM CREATININE SERUM CREATININE Cl [facility] Start: 11-09-2020 Influenza vaccination LUNG CANCER SC REENING [facility] Start: 11-09-2020 Screening for malign ant neoplasm of lung Lung Cancer Screening [facility] Start: 08-10-2020 Adult depression screening assessment DEPRESSION SCREENING [facility] Start: 07-15-2020 Influenza vaccination Flu vaccine (# 1) [facility] [place] Start: 02-21-2020 ANNUAL PCP TEAM FOOD 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 MANAGER DIPTI DISEASE VISIT ANNUAL PCP TEAM CHRONIC DISEASE VISIT [facility] Start: 07-10-2019 PNEUMOCOCCAL (3 - PP SV23 if available, else PCV20) PNEUMOCOCCAL (3 - PPSV23 if available, else PCV20) [facility] Start: 07-10-2019 PNEUMOCOCCAL (3 - PP SV23 or PCV20) PNEUMOCOCCAL (3 - PPSV23 or PCV20) [facility] Start: 07-10-2019 Pneumococcal vaccination Pneum ococcal Vaccine (3 - PPSV23 or PCV20) [facility] Start: 09-04-2018 Pneumococcal vaccination Pneum ococcal Vaccine (3 of 3 - PPSV23 or PCV20) [facility] Start: 08-16-2014 TWO PNEUMOVAX 5 YEAR S APART PRIOR TO AGE 65 (#2) TWO PNEUMOVAX 5 YEARS APART PRIOR TO AGE 65 (#2) [facility] Start: 2013 SHINGRIX VACCINE (1 of 2) SHINGRIX VACCINE (1 of 2) [facility] Start: 2008 COLOGUARD (FIT-DNA) COLOGUARD (FIT-D NA) [facility] Start: [address] COLONOGRAPHY [facility] Start: 2008 FECAL OCCULT BLOOD FECAL OCCULT BLOO D [facility] Start: 2008 Screening for malign ant neoplasm of colon [facility] Start: 2008 SIGMOIDOSCOPY SIGMOIDOSCOPY [facility] Start: 1982 SHINGRIX VACCINE (1 of 2) SHINGRIX VACCINE (1 of 2) [facility] Start: 1982 Urine microalbumin profile [facility] Start: 1981 Annual PCP Team Slip Bridge Operator dipti Disease Visit Annual PCP Team Chronic Disease Visit [facility] Start: 1981 Anxiety Screening Anxiety Screening [facility] Start: 1981 BP CONTROLLED (<130/80) BP CONTROLLE D (<130/80) [facility] Start: 1981 Depression Screening Depression Scre ening [facility] CBC Auto Differential CBC Auto D ifferential Lab Routine Daily until discontinued starting 11/03/2020, 2 completed [facility] [place] Comment on above: Daily until disconti nued starting 11/03/2020, 2 completed End: 12-19-2024 CBC W Auto Differential panel - Blood CBC + DIFF Lab Routine Stage 3b chronic kidney disease (HCC) 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) Once per month for 13 Occurrences starting 12/20/2023 until 12/19/2024, 1 completed [facility] Work Phone: Comment on above: Once per month for 1 3 Occurrences starting 12/20/2023 until 12/19/2024, 1 completed End: 05-23-2026 CBC W Auto Differential panel - Blood COMPLETE BLOOD COUNT AND DIFFERENTIAL Lab Routine 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) Every 2 months for 7 Occurrences starting 05/23/2025 until 05/23/2026 [facility] Comment on above: Every 2 months for 7 Occurrences starting 05/23/2025 until 05/23/2026 End: 12-19-2024 Comprehensive metabolic 2000 panel - Serum or Plasma COMP METABOLIC PANEL Lab Routine Stage 3b chronic kidney disease (HCC) 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) Once per month for 13 Occurrences starting 12/20/2023 until 12/19/2024, 1 completed [facility] Work Phone: Comment on above: Once per month for 1 3 Occurrences starting 12/20/2023 until 12/19/2024, 1 completed End: 05-23-2026 Comprehensive metabolic 2000 panel - Serum or Plasma COMPREHENSIVE METABOLIC PANEL Lab Routine 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) Every 2 months for 7 Occurrences starting 05/23/2025 until 05/23/2026 [facility] Work Phone: Comment on above: Every 2 months for 7 Occurrences starting 05/23/2025 until 05/23/2026 Comprehensive Metabo lic Panel w/ Reflex to MG Comprehensive Metabolic Panel w/ Reflex to MG Lab Routine Daily until discontinued starting 10/28/2020, 7 completed [place], [place] Comment on above: Daily until disconti nued starting 10/28/2020, 7 completed Nasal Cannula Oxygen Nasal Cannu la Oxygen Respiratory Care Routine Daily until discontinued starting 10/28/2020 [place] Comment on above: Daily until disconti nued starting 10/28/2020 Nebulizer therapy HHN Treatment Respiratory Care Routine 0600, 1000, 1400, 1800, 2200 until discontinued starting 10/30/2020 [place] Comment on above: 0600, 1000, 1400, 18 00, 2200 until discontinued starting 10/30/2020 Oxygen therapy [[facility] Data Set] Initiate Oxygen Therapy Protocol Respiratory Care Routine Daily until discontinued starting 10/28/2020 [place] Comment on above: Daily until disconti nued starting 10/28/2020 End: 12-19-2024 Phosphate [Mass/volume] in Serum or Plasma PHOSPHORUS INORGANIC Lab Routine Stage 3b chronic kidney disease (HCC) 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) Once per month for 13 Occurrences starting 12/20/2023 until 12/19/2024, 1 completed [facility] Work Phone: Comment on above: Once per month for 1 3 Occurrences starting 12/20/2023 until 12/19/2024, 1 completed End: 05-23-2026 Phosphate [Mass/volume] in Serum or Plasma PHOSPHORUS INORGANIC Lab Routine 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) Every 2 months for 7 Occurrences starting 05/23/2025 until 05/23/2026 [facility] Comment on above: Every 2 months for 7 Occurrences starting 05/23/2025 until 05/23/2026 End: 12-19-2024 Protein/Creatinine [Mass Ratio] in Urine PROTEIN CREATININE RATIO Lab Routine 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) Once per month for 13 Occurrences starting 12/20/2023 until 12/19/2024 [facility] Work Phone: Comment on above: Once per month for 1 3 Occurrences starting 12/20/2023 until 12/19/2024 UA DIP, URINE (POC) UA DIP, URIN E (POC) Lab Routine Screening for genitourinary condition 1 Occurrences starting 11/20/2024 [facility] Work Phone: Comment on above: 1 Occurrences starti ng 11/20/2024 UA DIP, URINE (POC) UA DIP, URIN E (POC) Lab Routine Screening for genitourinary condition 1 Occurrences starting 05/23/2025 [facility] Work Phone: Comment on above: 1 Occurrences starti ng 05/23/2025 End: 12-19-2024 Urinalysis complete panel - Urine URINALYSIS, WITH MICROSCOPIC Lab Routine 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) Once per month for 13 Occurrences starting 12/20/2023 until 12/19/2024 [facility] Work Phone: Comment on above: Once per month for 1 3 Occurrences starting 12/20/2023 until 12/19/2024 End: 05-23-2026 Urinalysis complete panel - Urine URINALYSIS, WITH MICROSCOPIC Lab Routine 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) Every 2 months for 7 Occurrences starting 05/23/2025 until 05/23/2026 [facility] Comment on above: Every 2 months for 7 Occurrences starting 05/23/2025 until 05/23/2026 [facility] Immunizations Immunization Date Immunization Notes Care Provider Fa [facility] 08-15-2024 influenza virus vacc ine, unspecified formulation Anthony Olivares MD Work Phone: [facility] 08-15-2023 influenza virus vacc ine, unspecified formulation Dorota Smith MD Work Phone: [facility] 08-18-2021 influenza, injectabl e, quadrivalent, preservative free Anthony Olivares MD Work Phone: [facility] Work Phone: 08-18-2021 influenza virus vacc ine, unspecified formulation Luz Daniel MD Work Phone: [facility] 08-14-2021 COVID-19 vaccine, ag e 12+ yr ([employer] - PURPLE TOP) Anthony Olivares MD Work Phone: [facility] Work Phone: 08-17-2019 influenza, injectabl e, quadrivalent, preservative free Anthony Olivares MD Work Phone: [facility] 08-02-2018 influenza, injectabl e, quadrivalent, preservative free Anthony Olivares MD Work Phone: [facility] 07-10-2018 pneumococcal conjuga te vaccine, 13 valent Anthony Olivares MD Work Phone: [facility] 08-14-2016 Influenza virus vaccine [facility] 08-14-2016 influenza, seasonal, injectable, preservative free Anthony Olivares MD Work Phone: [facility] Work Phone: 07-30-2016 influenza, injectabl e, quadrivalent, contains preservative Anthony Olivares MD Work Phone: [facility] 08-21-2015 influenza, injectabl e, quadrivalent, contains preservative Anthony Olivares MD Work Phone: [facility] 09-27-2014 influenza, seasonal, injectable Anthony Olivares MD Work Phone: [facility] 09-06-2013 influenza virus vacc ine, unspecified formulation Anthony Olivares MD Work Phone: [facility] 09-07-2012 influenza virus vacc ine, unspecified formulation Anthony Olivares MD Work Phone: [facility] Work Phone: 11-24-2010 influenza virus vacc ine, unspecified formulation Anthony Olivares MD Work Phone: [facility] Work Phone: 08-16-2009 influenza virus vacc ine, unspecified formulation Anthony Olivares MD Work Phone: [facility] 08-16-2009 pneumococcal polysaccharide vaccine, 23 valent Anthony Olivares MD Work Phone: [facility] 10-15-2000 influenza virus vacc ine, whole virus Anthony Olivares MD Work Phone: [facility] Work Phone: Payers Date Payer Category Payer Self-pay [id number] [phone] [id number] 2020 Medicaid [id number] 2020 Medicare [id number] 2020 Medicare UHC MEDICARE MYC ARE [facility] MEDICARE [id number] 2020-Present [phone] [address] [place] [address] Medicare [id number] 2020 Medicare (Managed Care) [facility] MEDICARE [id number] 2020 Private Health Insurance [id number]. [id number] 2016 Medicaid [id number] 2002 Medicare [id number] 1965 Unknown [id number] 2.16.840.1.464566.3.579.2. 651 1963 Unknown [id number] 2.16.840.1.263039.3.579.2. 651 Unknown [id number] 2.16.840.1.025411.3.579.2. 462 Unknown [id number] 2.16.840.1.348405.3.579.2. 462 Unknown [id number] 2.16.840.1.723986.3.579.2. 462 Unknown [id number] 2.16.840.1.629533.3.579.2. 462 Unknown [id number] 2.16.840.1.463703.3.579.2. 462 Unknown [id number] 2.16.840.1.082825.3.579.2. 462 Unknown [id number] 2.16.840.1.339892.3.579.2. 462 Unknown [id number] 2.16.840.1.081457.3.579.2. 462 Unknown [id number] 2.16.840.1.238734.3.579.2. 462 Unknown [id number] 2.16.840.1.585475.3.579.2. 462 Unknown [id number] 2.16.840.1.516474.3.579.2. 462 Unknown [id number] 2.16.840.1.878149.3.579.2. 462 Unknown [id number] 2.16.840.1.133736.3.579.2. 462 Unknown [id number] 2.16.840.1.918662.3.579.2. 462 Unknown [id number] 2.16.840.1.564275.3.579.2. 462 Unknown [id number] 2.16.840.1.095624.3.579.2. 462 Unknown [id number] 2.840.1.414416.3.579.2. 462 Unknown [id number] 2.16.840.1.570492.3.579.2. 462 Unknown [id number] 2.840.1.423651.3.579.2. 462 Unknown [id number] 2.840.1.472715.3.579.2. 462 Unknown [id number] 2.16.840.1.062802.3.579.2. 462 Unknown [id number] 2.16.840.1.685266.3.579.2. 462 Unknown [id number] 2.16.840.1.596689.3.579.2. 462 Unknown [id number] 2.16840.1.854566.3.579.2. 462 Unknown [id number] 2.16.840.1.073842.3.579.2. 462 Unknown [id number] 2.16.840.1.323852.3.579.2. 462 Unknown [id number] 2.16.840.1.640104.3.579.2. 462 Unknown [id number] 2.16.840.1.588010.3.579.2. 462 Unknown [id number] 2.16.840.1.140137.3.579.2. 462 Unknown [id number] 2.16.840.1.170471.3.579.2. 462 Unknown [id number] 2.16.840.1.096030.3.579.2. 462 Unknown [id number] 2.16.840.1.194876.3.579.2. 462 Social History Date Type Detail Facility Start: 10-28-2020 End: 09-14-2024 Tobacco smoking status NHIS Former smoker [facility] Start: 01-19-1973 End: 01-19-2015 History of tobacco use Current smoker [place], [place] Start: 1965 Sex Assigned At Not on file M [place], [place] Exposure to SARS-CoV -2 (event) Yes [place] Start: 03-02-2019 End: 03-02-2019 Tobacco smoking status TXIS Unknown if ever smoked [facility] Start: 03-02-2019 None [facility] Start: 03-02-2019 Spouse/ Signif icant Other;With Family [facility] Start: 04-04-2018 Non-smoker [facility] Start: 1965 Sex Assigned At Male W [facility] Start: 01-19-1973 End: 01-19-2015 History of tobacco use Cigarette Smoker [facility] Start: 02-11-2015 End: 10-19-2020 Cigarettes smoked current (pack per day) - Reported 1.5 [facility] Start: 02-11-2015 End: 09-14-2024 Tobacco use and exposure Smokeless tobacco non-user [facility] Start: 02-26-2022 End: 05-23-2025 Alcohol intake Current non-drinker of alcohol (finding) [facility] Start: 04-25-2022 End: 05-05-2022 Exposure to SARS-CoV-2 (event) Not sure [facility] Start: 10-19-2020 End: 08-27-2022 Tobacco use panel [facility] PHQ2 Score 5 [facility] Start: 03-02-2019 End: 03-02-2019 Tobacco smoking status NHIS Never smoked tobacco (finding) [facility] Start: 01-18-2025 End: 02-28-2025 Sex Male (finding) [facility] Medical Equipment Procedure Code Equipment Code Equipment Original Text Equipment Identifier Dates Cwk-Lh-C-Kind Implant - [id number] Start: 07-16-2015 Comment on above: Description: C1713 M TP PLATE Aga-Eb-V-Kind Implant - [id number] Start: 07-16-2015 Comment on above: Description: 3MM LOC VINNY SCREW Key-By-X-Kind Implant - [id number] Start: 07-16-2015 Comment on above: Description: C1713, 3MM CORTICAL LOCKING SCREW Zmb-My-R-Kind Implant - [id number] Start: 07-16-2015 Comment on above: Description: C1713, 3MM PARTIALLY THREADED CANNULATED SCREW Ehh-Bx-Q-Kind Implant - [id number] Start: 07-16-2015 Comment on above: Description: Implant System, CPR Mini Scorpion DX and Micro SutureLasso Screw Bn 3mm 18m m Ti Rodrigo Lp - [id number] Start: 07-16-2015 Screw Bn 3mm 15m m Qfix Ti Orth - [id number] Start: 07-16-2015 Screw Bn 3mm 15m m Qfix Ti Orth - [id number] Start: 07-16-2015 Screw Bn 3mm 12m m Ti Lck Lp - [id number] Start: 07-16-2015 Wire Fix .054in 6in [facility] - [id number] Start: 07-16-2015 Wire Fix .045in 5.5in [facility] - [id number] Start: 07-16-2015 Functional Status Date Assessment Result Facility 08-23-2019 Are you deaf, or do you have serious difficulty hearing No 08/23/2019 1:49 PM Vita Avitia RN No [facility] 08-23-2019 Are you blind, or do you have serious difficulty seeing, even when wearing glasses No 08/23/2019 1:49 PM Vita Avitia RN No [facility] 08-23-2019 Do you have serious difficulty walking or climbing stairs Yes 08/23/2019 1:49 PM EDT Vita Glaser, JENSEN Yes [facility] 08-23-2019 Do you have difficul ty dressing or bathing No 08/23/2019 1:49 PM EDT Vita Glaser, JENSEN No [facility] 08-23-2019 Because of a physica l, mental, or emotional condition, do you have difficulty doing errands alone such as visiting a physician's office or shopping No 08/23/2019 1:49 PM EDT Vita Glaser, JENSEN No [facility] Mental Status Date Assessment Result Facility 08-23-2019 Because of a physica l, mental, or emotional condition, do you have serious difficulty concentrating, remembering, or making decisions Yes 08/23/2019 1:49 PM EDT Vita Glaser, JENSEN Yes [facility] Clinical Notes 08-16-2019 to 08-15-2025 Julieta Luo RN - 06/06/2025 11:00 AM Anthony Grimm MD - 05/23/2025 3:57 PM Dorota Walker MD - 09/14/2024 9:01 AM EDTPatient Anthony Waggoner MD - 07/17/2024 11:24 AM EDT Note Date & Type Note Facility 08-15-2025 Note HNO ID: [id number] Author: ANTHONY OLIVARES MD Service: ? Author Type: Physician Type: Progress Notes Filed: 08/15/2025 14:31 Note Text: Chief complaint: follow up vasculitis HPI: Subjective Mr. 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 He went two years without seeing me or rituximab infusions from 2021 to 2023. We reinstituted his rituximab in 2023, last infusion was February 2025 at [place], next scheduled for this month. Last seen by me on virtual visit with his nurse in June 02. No new complaints. His metformin dose did get reduced to 500mg twice a day. He has no new concerns or complaints. PAST MEDICAL HISTORY Diagnosis Date Bipolar disorder, unspecified (HCC) age 18 [facility], on lithium; stable on meds Chronic systolic CHF (congestive heart failure) ([facility]) 03/19/2021 Convulsions ([facility]) 08/10/2019 Diabetes ([facility]) Diabetes mellitus (HCC) Diverticulosis of colon (without mention of hemorrhage) DVT (deep venous thrombosis) ([facility]) 2014 rina-op. on anticoagulants, 2016 Erosive esophagitis [...] pulm involvement, high dose predinsone and rituximab [id number], started Aug 16, 2016; 07/30. flared spring 2017, induced with pred and rituximab PAST SURGICAL HISTORY Procedure Laterality Date CHOLECYSTECTOMY 2013 [facility] COLONOSCOPY FLX DX W/COLLJ SPEC WHEN [...] Take 500 mg by mouth once daily. (Patient taking differently: Take 300 mg by mouth once daily.) ipratropium-albuterol (DUONEB) 0.5 mg-3 mg(2.5 mg base)/3 mL nebu Inhale 3 mL as instructed every 6 hours as needed for wheezing/shortness of breath. hydrOXYchloroQUINE (PLAQUENIL) 200 mg tablet Take 100 [...] Take 10 mg by mouth once daily. Bbhnc-1-VGZ-EPA-Fish Oil 1,000 mg (120 mg-180 mg) cap Take 1 capsule by mouth once daily. PALIPERIDONE ORAL Take 6 mg by mouth as directed. acetaminophen-codeine (TYLENOL-COD #4) 300-60 mg per tablet Take 1 tablet by mouth every 8 hours as needed. 500mg (Patient not taking: Reported on 09/14/2024) riTUXimab 1,000 mg in NaCl 0.9% 250 mL Inject 1,000 mg intravenously as directed for 1 dose. aluminum-magnesium hydroxide-simethicone (MAALOX,MYLANTA,MAG-AL PLUS) 200-200-20 mg/5 mL suspension Take 20 mL by mouth every 6 hours as needed. No current facility-administered medic (more content not included)... [facility] 08-15-2025 Note Patient Outreach (KI DMMN) ---- WILBURREGGIE Rosa ([id number]) 1965 M Date Time Provider Department 08/15/25 ANTHONY OLIVARES During your visit today, we recorded the following information about you: Allergies As of Date: 08/15/2025 Noted Allergy Reaction BEE POLLEN 10/28/2020 14 - Other: See Comments FLONASE (FLUTICASONE PROPIONATE) 10/21/2013 14 - Other: See Comments Comments: Anxiety LAMOTRIGINE 04/24/2008 2 - Rash ZYPREXA (OLANZAPINE) 06/21/2007 2 - Rash Date Reviewed: 08/15/2025 Reviewed by: Anthony Olivares MD - Fully Assessed Visit Diagnosis:Screening for genitourinary condition [Z13.89] Order(s):UA DIP, URINE (POC) [2151118] Order #: [id number] FUTURE Prescriptions as of 08/19/2025 - QUEtiapine XR (SEROQUEL XR) 300 mg 24 hr tablet Take 1 tablet by mouth once daily. - metFORMIN (GLUCOPHAGE) 500 mg tablet Take 1 tablet by mouth two times a day. - ergocalciferol 50,000 unit capsule (VITAMIN D2, DRISDOL) Take 1 capsule by mouth every 2 weeks. - allopurinol (ZYLOPRIM) 100 mg tablet Take [...] every 8 hours as needed. 500mg - melatonin 10 mg tab Take 10 mg by mouth once daily. - ipratropium-albuterol [...] 10 mg by mouth once daily. - Icaec-4-KIW-EPA-Fish Oil 1,000 mg (120 mg-180 mg) cap Take 1 capsule by mouth once daily. - PALIPERIDONE ORAL Take 6 mg by mouth as directed. Problem List As Of Date 08/15/2025 Noted Resolved Pneumonia, Organism Unspecified [J18.9] 01/29/2008 02/11/2010 Acute Gastritis without Mention of Hemorrhage [*05/28/2008 02/11/2010 Nontraumatic rupture of other tendons of foot a*10/08/2009 07/30/2016 Rout[facility] at [facility]*10/21/2009 01/29/2013 Class: Chronic Bipolar affective disorder (HCC) [F31.9] 10/21/2009 Tobacco abuse [Z72.0] 10/21/2009 07/10/2018 Porokeratosis [Q82.8] 02/03/2010 Gastritis, chronic [K29.50] 02/11/2010 07/10/2018 Erosive esophagitis [K22.10] 02/11/2010 Achilles bursitis or tendinitis [M76.60] 03/20/2010 07/30/2016 Contusion of unspecified site [T14.8XXA] 03/30/2010 07/30/2016 Enthesopathy of unspecified site [M77.9] 11/25/2010 07/10/2018 Other physical therapy [IKK9069] 11/25/2010 07/10/2018 Low HDL (under 40) [E78.6] [...] with esophagiti*04/27/2018 07/10/2018 Stage 3b chronic kidney dis (more content not included)... [facility] 06-06-2025 Note HNO ID: [id number] Author: JULIETA LUO RN Service: ? Author Type: Registered Nurse Type: Progress Notes Filed: 06/06/2025 13:13 Note Text: Asked to call nurse at [facility] for order clarification. Spoke with nurse [...] labs q2 months. Keely STYLES notified at [facility]. Verbalized understanding. Julieta Luo RN [facility] 06-06-2025 History of Present illness Narrative Asked to call nurse at [facility] for order clarification. Spoke with nurse [...] Dr. Olivares for further instructions. Per Dr. Elise rivera to continue Metformin. Continue labs q2 months. Keely STYLES notified at [facility]. Verbalized understanding. Julieta Luo RN documented in this encounter [facility] 06-06-2025 Note Patient Outreach (JENN STRATTON) ---- REGGIE LEÓN ([id number]) 1965 M Date Time Provider Department 06/06/25 JULIETA LUO During your visit today, we recorded the following information about you: Julieta Luo RN 06/06/2025 1:13 PM Addendum Asked to call nurse at [facility] for order clarification. Spoke with nurse [...] labs q2 months. Keely STYLES notified at [facility]. Verbalized understanding. Julieta Luo RN Allergies As [...] 10 mg by mouth once daily. - Kksgy-3-AXU-EPA-Fish Oil 1,000 mg (120 mg-180 mg) cap Take 1 capsule by mouth once daily. - PALIPERIDONE ORAL Take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 during the admission. PLAN: - Do not restart VPA Convulsions 08/10/2019 08/23/2019 Last Assessment & Plan: Gastroesophageal reflux disease with esophagitis 04/27/2018 07/10/2018 Overview: Added automatically from request for surgery [id number] Stage 4 chronic renal impair ment associated [...] of this encounter (statuses as of 03/30/2022) [facility] History of Past illness Narrative* Problem Noted Date Resolved Date Encephalopathy 08/16/2019 08/23/2019 Last Assessment & Plan: POA Assessment: 54 year old male who was referred by Dr. Aissatou Culp [[facility]] for diagnosis of events. No typical events during the admission. PLAN: - Do not restart VPA Convulsions 08/10/2019 08/23/2019 Last Assessment & Plan: Gastroesophageal reflux disease with esophagitis 04/27/2018 07/10/2018 Overview: Added automatically from request for surgery [id number] Stage 4 chronic renal impair ment associated [...] of this encounter (statuses as of 05/05/2022) [facility] History of Past illness Narrative* Problem Noted Date Resolved Date Encephalopathy 08/16/2019 08/23/2019 Last Assessment & Plan: POA Assessment: 54 year old male who was referred by Dr. Aissatou Culp [[facility]] for diagnosis of events. No typical events during the admission. PLAN: - Do not restart VPA Convulsions 08/10/2019 08/23/2019 Last Assessment & Plan: Gastroesophageal reflux disease with esophagitis 04/27/2018 07/10/2018 Overview: Added automatically from request for surgery [id number] Stage 4 chronic renal impair ment associated [...] Routine general medical exam ination at a [facility] care facility 10/21/2009 01/29/2013 Overview: 10/21/2009, from Dr. Stuart (pre-op physical, for podiatry) 06/28/2011, yearly check Tobacco abuse 10/21/2009 07/10/2018 Nontraumatic rupture of other tendons of foot an d ankle 10/08/2009 07/30/2016 Acute gastritis without mention of hemorrhage 02/11/2010 Pneumonia, organism unspecified(486) 01/29/2008 02/11/2010 documented as of this encounter (statuses as of 05/05/2022) [facility] History of Past illness Narrative* Problem Noted Date Resolved Date Encephalopathy 08/16/2019 08/23/2019 Last Assessment & Plan: POA Assessment: 54 year old male who was referred by Dr. Aissatou Culp [[facility]] for diagnosis of events. No typical events during the admission. PLAN: - Do not restart VPA Convulsions 08/10/2019 08/23/2019 Last Assessment & Plan: Gastroesophageal reflux disease with esophagitis 04/27/2018 07/10/2018 Overview: Added automatically from request for surgery [id number] Stage 4 chronic renal impair ment associated [...] of this encounter (statuses as of 05/06/2022) [facility] History of Past illness Narrative* Problem Noted Date Resolved Date Encephalopathy 08/16/2019 08/23/2019 Last Assessment & Plan: POA Assessment: 54 year old male who was referred by Dr. Aissatou Culp [[facility]] for diagnosis of events. No typical events during the admission. PLAN: - Do not restart VPA Convulsions 08/10/2019 08/23/2019 Last Assessment & Plan: Gastroesophageal reflux disease with esophagitis 04/27/2018 07/10/2018 Overview: Added automatically from request for surgery [id number] Stage 4 chronic renal impair ment associated [...] of this encounter (statuses as of 07/27/2022) [facility] History of Past illness Narrative* Problem Noted Date Resolved Date Encephalopathy 08/16/2019 08/23/2019 Last Assessment & Plan: POA Assessment: 54 year old male who was referred by Dr. Aissatou Culp [[facility]] for diagnosis of events. No typical events during the admission. PLAN: - Do not restart VPA Convulsions 08/10/2019 08/23/2019 Last Assessment & Plan: Gastroesophageal reflux disease with esophagitis 04/27/2018 07/10/2018 Overview: Added automatically from request for surgery [id number] Stage 4 chronic renal impair ment associated [...] of this encounter (statuses as of 07/30/2022) [facility] History of Past illness Narrative* Problem Noted Date Resolved Date Encephalopathy 08/16/2019 08/23/2019 Last Assessment & Plan: POA Assessment: 54 year old male who was referred by Dr. Aissatou Culp [[facility]] for diagnosis of events. No typical events during the admission. PLAN: - Do not restart VPA Convulsions 08/10/2019 08/23/2019 Last Assessment & Plan: Gastroesophageal reflux disease with esophagitis 04/27/2018 07/10/2018 Overview: Added automatically from request for surgery [id number] Stage 4 chronic renal impair ment associated [...] of this encounter (statuses as of 08/27/2022) [facility] History of Past illness Narrative* Problem Noted Date Resolved Date Encephalopathy 08/16/2019 08/23/2019 Last Assessment & Plan: POA Assessment: 54 year old male who was referred by Dr. Aissatou Culp [[facility]] for diagnosis of events. No typical events during the admission. PLAN: - Do not restart VPA Convulsions 08/10/2019 08/23/2019 Last Assessment & Plan: Gastroesophageal reflux disease with esophagitis 04/27/2018 07/10/2018 Overview: Added automatically from request for surgery [id number] Stage 4 chronic renal impair ment associated [...] of this encounter (statuses as of 11/02/2022) [facility] History of Past illness Narrative* Problem Noted Date Resolved Date Encephalopathy 08/16/2019 08/23/2019 Last Assessment & Plan: POA Assessment: 54 year old male who was referred by Dr. Aissatou Culp [[facility]] for diagnosis of events. No typical events during the admission. PLAN: - Do not restart VPA Convulsions 08/10/2019 08/23/2019 Last Assessment & Plan: Gastroesophageal reflux disease with esophagitis 04/27/2018 07/10/2018 Overview: Added automatically from request for surgery [id number] Stage 4 chronic renal impair ment associated [...] of this encounter (statuses as of 11/02/2022) [facility] History of Past illness Narrative* Problem Noted Date Resolved Date Encephalopathy 08/16/2019 08/23/2019 Last Assessment & Plan: POA Assessment: 54 year old male who was referred by Dr. Aissatou Culp [[facility]] for diagnosis of events. No typical events during the admission. PLAN: - Do not restart VPA Convulsions 08/10/2019 08/23/2019 Last Assessment & Plan: Gastroesophageal reflux disease with esophagitis 04/27/2018 07/10/2018 Overview: Added automatically from request for surgery [id number] Stage 4 chronic renal impair ment associated [...] of this encounter (statuses as of 11/03/2022) [facility] History of Past illness Narrative* Problem Noted Date Resolved Date Encephalopathy 08/16/2019 08/23/2019 Last Assessment & Plan: POA Assessment: 54 year old male who was referred by Dr. Aissatou Culp [[facility]] for diagnosis of events. No typical events during the admission. PLAN: - Do not restart VPA Convulsions 08/10/2019 08/23/2019 Last Assessment & Plan: Gastroesophageal reflux disease with esophagitis 04/27/2018 07/10/2018 Overview: Added automatically from request for surgery [id number] Stage 4 chronic renal impair ment associated [...] of this encounter (statuses as of 02/25/2023) [facility] History of Past illness Narrative* Problem [...] Overview: Added automatically from request for surgery [id number] Stage 4 chronic renal impair ment associated [...] of this encounter (statuses as of 08/26/2023) [facility] History of Past illness Narrative* Problem Noted Date Diagnosed Date Resolved Date Encephalopathy 08/16/2019 08/23/2019 Last Assessment & Plan: POA Assessment: 54 year old male who was referred by Dr. Aissatou Culp [[facility]] for diagnosis of events. No typical events during the admission. PLAN: - Do not restart VPA Convulsions 08/10/2019 08/23/2019 Last Assessment & Plan: Gastroesophageal reflux dise ase with esophagitis 04/27/2018 07/10/2018 Overview: Added automatically from request for surgery [id number] Stage 4 chronic renal impair ment associated [...] of this encounter (statuses as of 08/31/2023) [facility] of Past illness Narrative* Problem Noted Date Diagnosed Date Resolved Date Encephalopathy 08/16/2019 08/23/2019 Last Assessment & Plan: POA Assessment: 54 year old male who was referred by Dr. Aissatou Culp [[facility]] for diagnosis of events. No typical events during the admission. PLAN: - Do not restart VPA Convulsions 08/10/2019 08/23/2019 Last Assessment & Plan: Gastroesophageal reflux dise ase with esophagitis 04/27/2018 07/10/2018 Overview: Added automatically from request for surgery [id number] Stage 4 chronic renal impair ment associated [...] of this encounter (statuses as of 12/20/2023) [facility] of Past illness Narrative* Problem Noted Date Diagnosed Date Resolved Date Encephalopathy 08/16/2019 08/23/2019 Last Assessment & Plan: POA Assessment: 54 year old male who was referred by Dr. Aissatou Culp [[facility]] for diagnosis of events. No typical events during the admission. PLAN: - Do not restart VPA Convulsions 08/10/2019 08/23/2019 Last Assessment & Plan: Gastroesophageal reflux dise ase with esophagitis 04/27/2018 07/10/2018 Overview: Added automatically from request for surgery [id number] Stage 4 chronic renal impair ment associated [...] of this encounter (statuses as of 12/23/2023) [facility] of Past illness Narrative* Problem Noted Date Diagnosed Date Resolved Date Encephalopathy 08/16/2019 08/23/2019 Last Assessment & Plan: POA Assessment: 54 year old male who was referred by Dr. Aissatou Culp [[facility]] for diagnosis of events. No typical events during the admission. PLAN: - Do not restart VPA Convulsions 08/10/2019 08/23/2019 Last Assessment & Plan: Gastroesophageal reflux dise ase with esophagitis 04/27/2018 07/10/2018 Overview: Added automatically from request for surgery [id number] Stage 4 chronic renal impair ment associated [...] of this encounter (statuses as of 12/23/2023) [facility] of Past illness Narrative* Problem Noted Date Diagnosed Date Resolved Date Encephalopathy 08/16/2019 08/23/2019 Last Assessment & Plan: POA Assessment: 54 year old male who was referred by Dr. Aissatou Culp [[facility]] for diagnosis of events. No typical events during the admission. PLAN: - Do not restart VPA Convulsions 08/10/2019 08/23/2019 Last Assessment & Plan: Gastroesophageal reflux dise ase with esophagitis 04/27/2018 07/10/2018 Overview: Added automatically from request for surgery [id number] Stage 4 chronic renal impair ment associated [...] of this encounter (statuses as of 12/27/2023) [facility] of Past illness Narrative* Problem Noted Date Diagnosed Date Resolved Date Encephalopathy 08/16/2019 08/23/2019 Last Assessment & Plan: POA Assessment: 54 year old male who was referred by Dr. Aissatou Culp [[facility]] for diagnosis of events. No typical events during the admission. PLAN: - Do not restart VPA Convulsions 08/10/2019 08/23/2019 Last Assessment & Plan: Gastroesophageal reflux dise ase with esophagitis 04/27/2018 07/10/2018 Overview: Added automatically from request for surgery [id number] Stage 4 chronic renal impair ment associated [...] of this encounter (statuses as of 01/26/2024) [facility] of Past illness Narrative* Problem Noted Date Diagnosed Date Resolved Date Encephalopathy 08/16/2019 08/23/2019 Last Assessment & Plan: POA Assessment: 54 year old male who was referred by Dr. Aissatou Culp [[facility]] for diagnosis of events. No typical events during the admission. PLAN: - Do not restart VPA Convulsions 08/10/2019 08/23/2019 Last Assessment & Plan: Gastroesophageal reflux dise ase with esophagitis 04/27/2018 07/10/2018 Overview: Added automatically from request for surgery [id number] Stage 4 chronic renal impair ment associated [...] of this encounter (statuses as of 01/27/2024) [facility] noteNo assessment information availableWUniversity [facility]als [facility] Work Phone: Evaluation note* Diagnosis Granulomatosis with polyangiitis, unspecified whether renal involvement (HCC)- Primary [facility]* Diagnosis 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 Stage 3b chronic kidney disease (HCC) Benign hypertension with chronic kidney disease Rheumatoid arthritis involving both hands 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 rheumatoid factor (HCC) Chronic pain of right knee [facility]* Diagnosis 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 Vasculitis (HCC) Arteritis, unspecified documented in this encounter [facility] note* Diagnosis Rheumatoid arthritis involving both hands [...] unspecified genitourinary condition [facility]* Diagnosis Granulomatosis with polyangiitis with renal [...] this encounter [facility] note* Diagnosis Granulomatosis with polyangiitis [...] therapy (HCC) (HCC) documented in this encounter [facility] note* Diagnosis Granulomatosis with polyangiitis [...] genitourinary condition [facility] Diagnosis Granulomatosis with polyangiitis with renal [...] this encounter [facility] note* Diagnosis Granulomatosis with polyangiitis [...] this encounter [facility] note* Diagnosis Granulomatosis with polyangiitis [...] kidney disease (HCC) [facility] Diagnosis Granulomatosis with polyangiitis with [...] unspecified genitourinary condition [facility] Diagnostic Procedure Only (Routine) - Closed Specialty Diagnoses / Procedures Referred By Contac t Referred To Contact XR IMAGING Diagnoses Chronic pain of right knee Procedures XR KNEE LIMITED 2V AP/LAT RIGHT RADIOLOGIC EXAMINATION KNEE 1/2 VIEWS Luz Daniel MD [address] [place] [address] Xr Imaging Referral ID Status Reason Start Date Expiration Date V isits Requested Visits Authorized [id number] Closed Auto-Generate d Referral 02/26/2022 03/28/2023 1 1 * Diagnostic Procedure Only (Routine) - Closed Specialty Diagnoses / Procedures Referred By Contac t Referred To Contact XR IMAGING Diagnoses Rheumatoid arthritis involving both hands 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 rheumatoid factor (HCC) Procedures XR FOOT GENERAL 3V AP/LAT/OBL RIGHT RADEX FOOT COMPLETE MINIMUM 3 VIEWS Luz Daniel MD [address] [place] [id number] Xr Imaging Referral ID Status Reason Start Date Expiration Date V isits Requested Visits Authorized [id number] Closed Auto-Generate d Referral 02/26/2022 03/28/2023 1 1 * Diagnostic Procedure Only (Routine) - Closed Specialty Diagnoses / Procedures Referred By Contac t Referred To Contact XR IMAGING Diagnoses Rheumatoid arthritis involving both hands 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 rheumatoid factor (HCC) Procedures XR FOOT GENERAL 3V AP/LAT/OBL LEFT RADEX FOOT COMPLETE MINIMUM 3 VIEWS Luz Daniel MD [address] [place] [address] Xr Imaging Referral ID Status Reason Start Date Expiration Date V isits Requested Visits Authorized [id number] Closed Auto-Generate d Referral 02/26/2022 03/28/2023 1 1 * Diagnostic Procedure Only (Routine) - Closed Specialty Diagnoses / Procedures Referred By Contac t Referred To Contact XR IMAGING Diagnoses Rheumatoid arthritis involving both hands 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 rheumatoid factor (HCC) Procedures XR HAND GENERAL 3V PA/LAT/OBL RIGHT RADEX HAND MINIMUM 3 VIEWS Luz Daniel MD [address] [place] [address] Xr Imaging Referral ID Status Reason Start Date Expiration Date V isits Requested Visits Authorized [id number] Closed Auto-Generate d Referral 02/26/2022 03/28/2023 1 1 * Diagnostic Procedure Only (Routine) - Closed Specialty Diagnoses / Procedures Referred By Contac t Referred To Contact XR IMAGING Diagnoses Rheumatoid arthritis involving both hands 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 rheumatoid factor (HCC) Procedures XR HAND GENERAL 3V PA/LAT/OBL LEFT RADEX HAND MINIMUM 3 VIEWS Luz Daniel MD [address] [place] [id number] Xr Imaging Referral ID Status Reason Start Date Expiration Date V isits Requested Visits Authorized [id number] Closed Auto-Generate d Referral 02/26/2022 03/28/2023 1 1 [facility])No reason for referral information availableWUniversity [facility]als [facility] Work Phone: Reason for visit Narrative* [place] Prior Authorization (Routine) - Authorized Specialty Diagnoses / Procedures Referred By Contac t Referred To Contact Diagnoses Granulomatosis with polyangiitis with renal involvement (HCC) Procedures INJ RUXIENCE, 10 MG Anthony Olivares MD [address] [place] [address] Phone: tel: fax: Anthony Olivares MD [address] [place] [address] Phone: tel: fax: Referral ID Status Reason Start Date Expiration Date V isits Requested Visits Authorized [id number] Authorized 01/30/2025 01/31/2026 2 2 [facility] Summary Purpose Family History No Family [...] No March 02, 2019 1:12pm Power of Website Admin No March 02 1:12pm Documents on File Type Date Recorded 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 Advance Directive(s) 08/17/2019 7:16 PM Advance Directive(s) 08/14/2019 9:32 AM Advance Directive(s) 07/23/2019 12:21 PM Advance Directive(s) 01/05/2019 9:49 AM Advance Directive(s) 06/12/2018 10:01 AM Advance Directive(s) 08/24/2016 10:32 PM Advance Directive(s) 08/11/2016 2:31 PM Documents on File Type Date Recorded 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 He had a positive COVID19 test (more [...] 10/28/20 0000 -- -- -- Aminah León [phone] Admitting Physician: Farrukh Diaz MD PCP: No primary care provider on file. Discharging Nurse: [facility] Unit/Room#: 611/8642 Discharging Unit Phone Number: [phone] Emergency Contact: No emergency contact information on [...] Casillas RN 11/05/20 11/12/20 10/14/2020 Documentation in [place] Disease Reporting System of positive COVID - [...] Assisted Dressing Assisted Toileting Independent Feeding Independent Motorcycle Sales Associate Assisted Med Delivery whole Wound Care Documentation [...] Readmission: 20 Discharging to Facility/ Agency Name: [facility] Address: [address] [place] [id number] Dialysis Facility (if applicable) Name: Address: Dialysis Schedule: Phone: Fax: Washcoat Wiper/Acquisition Professional signature: at12:24 PM EST PHYSICIAN SECTION Prognosis: [...] encounter History of Present Illness * Joy Sepulveda, JENSEN - 11/04/2020 3:42 PM EST Report given to Yesenia at [place]. * Amaris Ibrahim RCP - 11/04/2020 12:15 PM EST [facility] Respiratory Care Department Progress Note SpO2 [...] Daniel MD - 11/03/2020 6:05 PM EST [facility] Progress Note Subjective/ 55 [...] PLT [id number] Recent Labs 11/01/20 0235 11/02/207 11/03/20 0236 NA 137 137 134* [...] in remission from renal perspective. No urgent STOCK SHIPPER indications. Will follow. [facility] * Farrukh Diaz MD - 11/03/2020 1:09 PM EST Hospitalist Progress Note 11/03/2020 1:09 PM [phone]: Please page [place] [phone] for patient care issues. [phone]: Please page [facility] night Hospitalist for any issues. Subjective: [...] of Hospitalist Medicine Inpatient Medical Services PAGER: [phone] * Piyush Daniel MD - 11/02/2020 10:00 [...] AC Farrukh Diaz MD 40 mg at 11/02/20809 paliperidone (INVEGA) extended release tablet 6 mg [...] remission atleast from renal perspective. No urgent STOCK SHIPPER indications. Will follow. [facility] * Farrukh Diaz MD - 11/02/2020 3:16 PM EST Hospitalist Progress Note 11/02/2020 3:16 PM [phone]: Please page [place] [phone] for patient care issues. [phone]: Please page [facility] Hospitalist for any issues. Subjective: Admit Date: [...] of Hospitalist Medicine Inpatient Medical Services PAGER: [phone] * Piyush Daniel MD - 11/01/2020 8:04 PM EST [facility]rology Progress Note Subjective/ 57 [...] Farrukh Diaz MD 2,000 Units at 11/01/20 08 remdesivir 100 mg in sodium chloride 0.9 % 250 mL IVPB 100 mg Intravenous Q24H Farrukh Diaz MD Stopped at 10/31/20 2313 0.9 % sodium chloride bolus 30 mL Intravenous PRN Farrukh Diaz MD atorvastatin (LIPITOR) tablet 20 mg 20 mg Oral Daily Farrukh Diaz MD 20 mg at 11/01/20828 cyclobenzaprine (FLEXERIL) tablet 10 mg 10 mg [...] remission atleast from renal perspective. No urgent STOCK SHIPPER indications. Will follow. [facility] * Farrukh Diaz MD - 11/01/2020 3:07 PM EST Hospitalist Progress Note 11/01/2020 3:08 PM [phone]: Please page [place] [phone] for patient care issues. [phone]: Please page [facility] night Hospitalist for any issues. Subjective: [...] or lesions. LABS: CBC: Recent Labs 10/31/20 022 WBC 9.5 RBC 4.14* HGB 12.0* HCT [...] of Hospitalist Medicine Inpatient Medical Services PAGER: [phone] * Mia Noyola RCP - 11/01/2020 12:00 [...] EST Hospitalist Progress Note 11/01/2020 11:33 AM [phone]: Please page [place] [phone] for patient care issues. [phone]: Please page [facility] night Hospitalist for any issues. Subjective: [...] of Hospitalist Medicine Inpatient Medical Services PAGER: [phone] * Bakari Hdz MD - 10/31/2020 9:35 AM EST [facility] Progress Note Subjective/ 57 [...] [place] Farrukh Diaz MD 1 ampule at 10/30/202226 [...] No more ivf needed S/p contrats exposure abby staying stable so far, trend Plan to restart home lasix dose today since abby improvinig Continue to hold Losartan. No changes needed to immunosuppressive therapy. May need to institute the antibiotic 3x/week the one he was on outpatient. 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 D/w IMS. No urgent STOCK SHIPPER indications. Will follow. [facility] * Farrukh Diaz MD - 10/30/2020 3:50 PM EST Hospitalist Progress Note 10/30/2020 3:50 PM [phone]: Please page [place] [phone] for patient care issues. [phone]: Please page [facility] Hospitalist for any issues. Subjective: Admit Date: [...] NEGATIVE: No targets were detected by the [employer] Upper Respiratory Pathogens PCR Panel. _ Expected Result: Not Detected The [employer] Upper Respiratory Pathogens PCR Panel can detect [...] management decisions. This assay was developed by [employer] and distributed under an Emergency Use Authorization (EUA) granted by the FDA for the qualitative detection of SARS-CoV-2 nucleic acid. Provider and patient fact sheets can be found at https://www.fda. gov/media/527679/download and https://www.fda.gov/media/763368/download. Assessment / Plan 1. Acute hypoxic respiratory [...] of Hospitalist Medicine Inpatient Medical Services PAGER: [phone] * Bakari Hdz MD - 10/30/2020 10:18 AM EST [facility] Progress Note Subjective/ 57 [...] 108/92 Pulse: 68 78 97 Resp: 20 18 20 Temp: 96.7 F (35.9 C) 97.4 [...] per day Farrukh Diaz MD5,000 Units at 10/30/205 sodium chloride flush 0.9 % injection 10 [...] Farrukh Diaz MD 5 mg at 10/29/20 08 melatonin tablet 3 mg 3 mg Oral Nightly Farrukh Diaz MD 3 mg at 10/29/202010 metoprolol succinate (TOPROL XL) extended release tablet 50 mg 50 mg Oral Daily Farrukh Diaz MD 50 mg at 10/29/20 08 omega-3 acid ethyl esters (LOVAZA) capsule 1 [...] trend Plan to restart home lasix dose dain am if abby og Continue to hold Losartan. No changes needed to immunosuppressive therapy. May need to institute the antibiotic 3x/week the one he was on outpatient. 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 D/w [facility]. No urgent STOCK SHIPPER indications. Will follow. [facility] * Jeanie Samuel - 10/30/2020 9:42 AM EST Nutrition rescreen completed. Patient assigned a level 1. * Farrukh Diaz MD - 10/29/2020 5:56 PM EST Hospitalist Progress Note 10/29/2020 5:56 PM [phone]: Please page [place] [phone] for patient care issues. [phone]: Please page [facility] night Hospitalist for any issues. Subjective: [...] NEGATIVE: No targets were detected by the [employer] Upper Respiratory Pathogens PCR Panel. _ Expected Result: Not Detected The [employer] Upper Respiratory Pathogens PCR Panel can detect [...] management decisions. This assay was developed by [employer] and distributed under an Emergency Use Authorization (EUA) granted by the FDA for the qualitative detection of SARS-CoV-2 nucleic acid. Provider and patient fact sheets can be found at https://www.fda. gov/media/985251/download and https://www.fda.gov/media/979440/download. Assessment / Plan 1. Acute hypoxic respiratory [...] of Hospitalist Medicine Inpatient Medical Services PAGER: [phone] * Shirley Casillas RN - 10/29/2020 10:49 AM EST Documentation in [place] disease Reporting System: * Farrukh Diaz MD - 10/29/2020 9:58 AM EST Patient unable to get CTA chest due to DONNA - will hydrate and if able, will get it at a later time. * Irena Land RN - 10/29/2020 12:48 AM EST Patient moved into private bed [address] Mosley. Patients COVID test came back negative. Dr. Pro nursing sample supervisor made aware. documented in this encounter Assessments Diagnosis Pneumonia due to COVID-19 virus- Primary Hypoxia Hypoxemia Hypokalemia Hypopotassemia Stage 3 chronic kidney disease, unspecified whether stage 3a or 3b CKD Chief Complaint and Reason for Visit Chief Complaint GROUP HOME LAB WOR K GROUP HOME LABWORK GROUP HOME LABWORK GROUP HOME LABWORK GROUP HOME LAB WORK GROUP HOME LABWORK Chief Complaint GROUP HOME LABWORK GROUP HOME LABWORK GROUP HOME LAB WORK GROUP HOME LABWORK GROUP HOME LABWORK GROUP HOME LABWORK Chief Complaint GROUP HOME LABWORK GROUP HOME LAB WORK GROUP HOME LABWORK GROUP HOME LABWORK GROUP HOME LABWORK LABWORK GROUP HOME LABWORK Chief Complaint GROUP HOME LABWORK GROUP HOME LAB WORK GROUP HOME LABWORK GROUP HOME LABWORK GROUP HOME LABWORK LABWORK GROUP HOME LABWORK LABWORK Chief Complaint GROUP HOME LAB WOR K GROUP HOME LABWORK GROUP HOME LABWORK GROUP HOME LABWORK LABWORK GROUP HOME LABWORK LABWORK LABWORK Chief Complaint GROUP HOME LABWORK GROUP HOME LABWORK LABWORK GROUP HOME LABWORK LABWORK GROUP HOME LABWORK LABWORK GROUP HOME LAB WORK LABWORK Chief Complaint LABWORK GROUP HOME LABWORK LABWORK GROUP HOME LABWORK LABWORK GROUP HOME LAB WORK LABWORK LABWORK LABWORK Chief Complaint LABWORK GROUP HOME LABWORK LABWORK GROUP HOME LABWORK LABWORK GROUP HOME LAB WORK LABWORK LABWORK LABWORK GROUP HOME LABWORK Chief Complaint GROUP HOME LABWORK LABWORK GROUP HOME LABWORK LABWORK GROUP HOME LAB WORK LABWORK LABWORK LABWORK GROUP HOME LABWORK GROUP HOME LABWORK Chief Complaint LABWORK LABWORK LABWORK GROUP HOME LABWORK GROUP HOME LABWORK GROUP HOME LABWORK Chief Complaint LABWORK LABWORK LABWORK GROUP HOME LABWORK GROUP HOME LABWORK LABWORK GROUP HOME LABWORK Chief Complaint LABWORK LABWORK GROUP HOME LABWORK GROUP HOME LABWORK LABWORK GROUP HOME LABWORK GROUP HOME LAB WORK GROUP HOME LABWORK Chief Complaint LABWORK GROUP HOME LABWORK GROUP HOME LABWORK LABWORK GROUP HOME LABWORK GROUP HOME LAB WORK GROUP HOME LABWORK GROUP HOME LABWORK Chief Complaint LABWORK GROUP HOME LABWORK GROUP HOME LAB WORK GROUP HOME LABWORK GROUP HOME LABWORK LABWORK GROUP HOME LAB WORK LABWORK Chief Complaint GROUP HOME LABWORK GROUP HOME LAB WORK GROUP HOME LABWORK GROUP HOME LABWORK LABWORK GROUP HOME LAB WORK LABWORK LABWORK Chief Complaint GROUP HOME LABWORK GROUP HOME LAB WORK GROUP HOME LABWORK GROUP HOME LABWORK LABWORK GROUP HOME LAB WORK LABWORK LABWORK GROUP HOME LAB WORK Chief Complaint GROUP HOME LABWORK LABWORK GROUP HOME LAB WORK LABWORK LABWORK GROUP HOME LAB WORK GROUP HOME LABWORK Chief Complaint LABWORK GROUP HOME LAB WORK LABWORK LABWORK GROUP HOME LAB WORK GROUP HOME LABWORK LABWORK GROUP HOME LABWORK Chief Complaint GROUP HOME LAB WOR K LABWORK LABWORK GROUP HOME LAB WORK GROUP HOME LABWORK LABWORK GROUP HOME LABWORK LABWORK Chief Complaint GROUP HOME LAB WOR K LABWORK LABWORK GROUP HOME LAB WORK GROUP HOME LABWORK LABWORK GROUP HOME LABWORK LABWORK GROUP HOME LAB WORK Chief Complaint LABWORK LABWORK GROUP HOME LAB WORK GROUP HOME LABWORK LABWORK GROUP HOME LABWORK LABWORK LABWORK GROUP HOME LAB WORK GROUP HOME LABWORK Chief Complaint LABWORK GROUP HOME LAB WORK GROUP HOME LABWORK LABWORK GROUP HOME LABWORK LABWORK LABWORK GROUP HOME LAB WORK GROUP HOME LABWORK LABWORK Chief Complaint GROUP HOME LAB WOR K GROUP HOME LABWORK LABWORK GROUP HOME LABWORK LABWORK LABWORK GROUP HOME LAB WORK GROUP HOME LABWORK LABWORK LABWORK Chief Complaint LABWORK LABWORK GROUP HOME LABWORK GROUP HOME LABWORK LABWORK LABWORK GROUP HOME LAB WORK GROUP HOME LABWORK Chief Complaint GROUP HOME LABWORK GROUP HOME LABWORK LABWORK LABWORK GROUP HOME LAB WORK GROUP HOME LABWORK GROUP HOME LAB WORK LABWORK Chief Complaint LABWORK LABWORK GROUP HOME LAB WORK GROUP HOME LABWORK GROUP HOME LAB WORK LABWORK LABWORK Chief Complaint GROUP HOME LAB WOR K GROUP HOME LABWORK GROUP HOME LAB WORK LABWORK LABWORK GROUP HOME LABWORK GROUP HOME LABWORK Chief Complaint LABWORK LABWORK GROUP HOME LABWORK GROUP HOME LABWORK LABWORK Chief Complaint LABWORK LABWORK GROUP HOME LABWORK GROUP HOME LABWORK LABWORK GROUP HOME LAB WORK Chief Complaint LABWORK LABWORK GROUP HOME LABWORK GROUP HOME LABWORK LABWORK GROUP HOME LAB WORK LABWORK Chief Complaint GROUP HOME LABWORK GROUP HOME LABWORK LABWORK GROUP HOME LAB WORK LABWORK GROUP HOME LABWORK Chief Complaint GROUP HOME LABWORK GROUP HOME LABWORK LABWORK GROUP HOME LAB WORK LABWORK GROUP HOME LABWORK GROUP HOME LAB WORK Chief Complaint LABWORK GROUP HOME LAB WORK LABWORK GROUP HOME LABWORK GROUP HOME LAB WORK GROUP HOME LAB WORK LABWORK Chief Complaint GROUP HOME LAB WOR K LABWORK GROUP HOME LABWORK GROUP HOME LAB WORK GROUP HOME LAB WORK LABWORK LABWORK Chief Complaint GROUP HOME LABWORK GROUP HOME LAB WORK GROUP HOME LAB WORK LABWORK LABWORK LABWORK Chief Complaint Admit Date GROUP HOME LAB WORK September 27 4 5:00am GROUP HOME LAB WORK November 15, 2024 5:00am GROUP HOME LAB WORK November 27, 2024 5:00am GROUP HOME LAB WORK December 28 5:00am GROUP HOME LAB WORK January 02 5:00am GROUP HOME LAB WORK January 03 6:10am Chief Complaint Admit Date GROUP HOME LAB WORK November 15, 2024 5:00am GROUP HOME LAB WORK November 27, 2024 5:00am GROUP HOME LAB WORK December 28 5:00am GROUP HOME LAB WORK January 02 5:00am GROUP HOME LAB WORK January 03 6:10am GROUP HOME LAB WORK January 25, 2025 5 :00am Chief Complaint Admit Date GROUP HOME LAB WORK November 15, 2024 5:00am GROUP HOME LAB WORK November 27, 2024 5:00am GROUP HOME LAB WORK December 28 5:00am GROUP HOME LAB WORK January 02 5:00am GROUP HOME LAB WORK January 03 6:10am GROUP HOME LAB WORK January 25, 2025 5 :00am GROUP HOME LAB WORK January 30, 2025 5 :00am Chief Complaint Admit Date GROUP HOME LAB WORK November 15, 2024 5:00am GROUP HOME LAB WORK November 27, 2024 5:00am GROUP HOME LAB WORK December 28 5:00am GROUP HOME LAB WORK January 02 5:00am GROUP HOME LAB WORK January 03 6:10am GROUP HOME LAB WORK January 25, 2025 5 :00am GROUP HOME LAB WORK January 30, 2025 5 :00am LABWORKJ February 06, 2025 5:0 0am LABWORK February 11, 2025 5:0 0am Chief Complaint Admit Date GROUP HOME LAB WORK November 27, 2024 5:00am GROUP HOME LAB WORK December 28 5:00am GROUP HOME LAB WORK January 02 5:00am GROUP HOME LAB WORK January 03 6:10am GROUP HOME LAB WORK January 25, 2025 5 :00am GROUP HOME LAB WORK January 30, 2025 5 :00am LABWORKJ February 06, 2025 5:0 0am LABWORK February 11, 2025 5:0 0am LABWORK February 27, 2025 5:0 0am Chief Complaint Admit Date GROUP HOME LAB WORK November 27, 2024 5:00am GROUP HOME LAB WORK December 28 5:00am GROUP HOME LAB WORK January 02 5:00am GROUP HOME LAB WORK January 03 6:10am GROUP HOME LAB WORK January 25, 2025 5 :00am GROUP HOME LAB WORK January 30, 2025 5 :00am LABWORKJ February 06, 2025 5:0 0am LABWORK February 11, 2025 5:0 0am GROUP HOME LAB WORK February 25, 2025 5 :00am LABWORK February 27, 2025 5:0 0am Chief Complaint Admit Date GROUP HOME LAB WORK December 28 5:00am GROUP HOME LAB WORK January 02 5:00am GROUP HOME LAB WORK January 03 6:10am GROUP HOME LAB WORK January 25, 2025 5 :00am GROUP HOME LAB WORK January 30, 2025 5 :00am LABWORKJ February 06, 2025 5:0 0am LABWORK February 11, 2025 5:0 0am GROUP HOME LAB WORK February 25, 2025 5 :00am LABWORK February 27, 2025 5:0 0am GROUP HOME LAB WORK March 04, 2025 1 0:30pm Chief Complaint Admit Date GROUP HOME LAB WORK January 25, 2025 5 :00am GROUP HOME LAB WORK January 30, 2025 5 :00am LABWORKJ February 06, 2025 5:0 0am LABWORK February 11, 2025 5:0 0am GROUP HOME LAB WORK February 25, 2025 5 :00am LABWORK February 27, 2025 5:0 0am GROUP HOME LAB WORK March 04, 2025 1 0:30pm LABWORK March 27, 2025 5:00a m GROUP HOME LAB WORK April 01, 2025 5:0 0am Chief Complaint Admit Date GROUP HOME LAB WORK April 24, 2025 5: 00am LABWORK April 26, 2025 5:00 am GROUP HOME LAB WORK May 02, 2025 5: 00am GROUP HOME LAB WORK May 24, 2025 5: 00am GROUP HOME LAB WORK May 26, 2025 8: 00pm GROUP HOME LAB WORK May 28, 2025 5: 00am [facility] June 05, 2025 5:00 am LABWORK June 19, 2025 5:0 0am LABWORK June 20, 2025 5:0 0am GROUP HOME LAB WORK June 27, 2025 5:00am GROUP HOME LAB WORK July 01, 2025 6:38am GROUP HOME LAB WORK July 02, 2025 5:00am LABOWRK July 29, 2025 5:00am Chief Complaint Admit Date GROUP HOME LAB WORK April 24, 2025 5: 00am LABWORK April 26, 2025 5:00 am GROUP HOME LAB WORK May 02, 2025 5: 00am GROUP HOME LAB WORK May 24, 2025 5: 00am GROUP HOME LAB WORK May 26, 2025 8: 00pm GROUP HOME LAB WORK May 28, 2025 5: 00am [facility] June 05, 2025 5:00 am LABWORK June 19, 2025 5:0 0am LABWORK June 20, 2025 5:0 0am GROUP HOME LAB WORK June 27, 2025 5:00am GROUP HOME LAB WORK July 01, 2025 6:38am GROUP HOME LAB WORK July 02, 2025 5:00am [facility] July 29, 2025 5:00am GROUP HOME LAB WORK August 02 5:00am LABWORK August 09, 2025 5:00am Medications Administered Section Inactive Administered Medications - [...] skin eruption Procedures CONSULT TO DERMATOLOGY OFFICE/OUTPATIENT [facility] 60 MINUTES Dorota Smith MD [address] [facility] [address] [place] [address] Referral ID Status Reason Start Date Expiration Date Visits Requested Visits Authorized [id number] Authorized PCP Requested Referral 09/14/2024 09/14/2025 1 1 Additional Source Comments INFORMATION SOURCE (unrecogn ized section and content) DATE CREATED AUTHOR 06/07/2018 [facility] DATE CREATED AUTHOR AUTHOR'S ORGANIZ ATION 04/02/2019 [facility] DATE CREATED AUTHOR AUTHOR'S ORGANIZ ATION 03/30/2020 [facility] DATE CREATED AUTHOR AUTHOR'S ORGANIZ ATION 08/05/2020 [facility] DATE CREATED AUTHOR AUTHOR'S ORGANIZ ATION 11/21/2020 [facility] DATE CREATED AUTHOR AUTHOR'S ORGANIZ ATION 09/18/2024 [facility] DATE CREATED AUTHOR AUTHOR'S ORGANIZ ATION 08/20/2025 [facility] DATE CREATED AUTHOR AUTHOR'S ORGANIZ ATION 08/29/2025 [facility] DATE CREATED AUTHOR AUTHOR'S ORGANIZ ATION 09/19/[address] [facility] (unrecognized sect ion and content) No [...] 10 MG IV RITUXIMAB Anthony Olivares MD [address] [id number] 1, Kidney Med Main Infusion Chair [address] [id number] Referral ID Status Reason Start Date Expiration Date V isits Requested Visits Authorized [id number] Authorized 03/31/2022 11/13/2022 99 99 Reason Comments Shortness of Breath Reason Comments Follow Up Reason Comments Infusion iv rituximab Reason Comments Radio Main J1 Specialty Diagnoses / Procedures Referred By Ulises duncan Referred To Contact XR IMAGING Diagnoses Chronic pain of right knee Procedures XR KNEE LIMITED 2V AP/LAT RIGHT RADIOLOGIC EXAMINATION KNEE 1/2 VIEWS Luz Daniel MD [address] [place] [address] Xr Imaging Referral ID Status Reason Start Date Expiration Date V isits Requested Visits Authorized [id number] Closed Auto-Generate d Referral 02/26/2022 03/28/2023 1 1 Reason Comments Rheumatoid Arthritis Reason Comments Follow Up RA- hands, stiff and swollen Reason Comments NO SHOW Reason Comments Patient Update Reason Comments Appointment Specialty Diagnoses / Procedures Referred By Ulises t Referred To Contact Diagnoses 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) Procedures INJ RUXIENCE, 10 MG Anthony Olivares MD [address] [place] [address] Infusion [facility] [address] [place] [address] Referral ID Status Reason Start Date Expiration Date V isits Requested Visits Authorized [id number] Authorized 12/27/2023 12/29/2024 24 24 Reason Comments [...] or prosecute any alcohol or drug abuse patient.[facility] the event this information is protected by the Federal Confidentiality of Alcohol and Drug Abuse Patient Records regulations: The Federal rules restrict any use of the information to criminally investigate or prosecute any alcohol or drug abuse patient.[facility] Hospital[facility] the event this information is protected by the Federal Confidentiality of Alcohol and Drug Abuse Patient Records regulations: The Federal rules restrict any use of the information to criminally investigate or prosecute any alcohol or drug abuse patient.[facility] the event this information is protected by the Federal Confidentiality of Alcohol and Drug Abuse Patient Records regulations: The Federal rules restrict any use of the information to criminally investigate or prosecute any alcohol or drug abuse patient.[facility] HospitalIn the event this information is protected by the Federal Confidentiality of Alcohol and Drug Abuse Patient Records regulations: The Federal rules restrict any use of the information to criminally investigate or prosecute any alcohol or drug abuse patient.[facility] HospitalIn the event this information is protected by the Federal Confidentiality of Alcohol and Drug Abuse Patient Records regulations: The Federal rules restrict any use of the information to criminally investigate or prosecute any alcohol or drug abuse patient.[facility] HospitalIn the event this information is protected by the Federal Confidentiality of Alcohol and Drug Abuse Patient Records regulations: The Federal rules restrict any use of the information to criminally investigate or prosecute any alcohol or drug abuse patient.[facility] HospitalIn the event this information is protected by the Federal Confidentiality of Alcohol and Drug Abuse Patient Records regulations: The Federal rules restrict any use of the information to criminally investigate or prosecute any alcohol or drug abuse patient.[facility] HospitalIn the event this information is protected by the Federal Confidentiality of Alcohol and Drug Abuse Patient Records regulations: The Federal rules restrict any use of the information to criminally investigate or prosecute any alcohol or drug abuse patient.[facility] HospitalIn the event this information is protected by the Federal Confidentiality of Alcohol and Drug Abuse Patient Records regulations: The Federal rules restrict any use of the information to criminally investigate or prosecute any alcohol or drug abuse patient.[facility] HospitalIn the event this information is protected by the Federal Confidentiality of Alcohol and Drug Abuse Patient Records regulations: The Federal rules restrict any use of the information to criminally investigate or prosecute any alcohol or drug abuse patient.[facility] HospitalIn the event this information is protected by the Federal Confidentiality of Alcohol and Drug Abuse Patient Records regulations: The Federal rules restrict any use of the information to criminally investigate or prosecute any alcohol or drug abuse patient.[facility] HospitalIn the event this information is protected by the Federal Confidentiality of Alcohol and Drug Abuse Patient Records regulations: The Federal rules restrict any use of the information to criminally investigate or prosecute any alcohol or drug abuse patient.[facility] HospitalIn the event this information is protected by the Federal Confidentiality of Alcohol and Drug Abuse Patient Records regulations: The Federal rules restrict any use of the information to criminally investigate or prosecute any alcohol or drug abuse patient.[facility] HospitalIn the event this information is protected by the Federal Confidentiality of Alcohol and Drug Abuse Patient Records regulations: The Federal rules restrict any use of the information to criminally investigate or prosecute any alcohol or drug abuse patient.[facility] HospitalIn the event this information is protected by the Federal Confidentiality of Alcohol and Drug Abuse Patient Records regulations: The Federal rules restrict any use of the information to criminally investigate or prosecute any alcohol or drug abuse patient.[facility] HospitalIn the event this information is protected by the Federal Confidentiality of Alcohol and Drug Abuse Patient Records regulations: The Federal rules restrict any use of the information to criminally investigate or prosecute any alcohol or drug abuse patient.[facility] HospitalIn the event this information is protected by the Federal Confidentiality of Alcohol and Drug Abuse Patient Records regulations: The Federal rules restrict any use of the information to criminally investigate or prosecute any alcohol or drug abuse patient.[facility] HospitalIn the event this information is protected by the Federal Confidentiality of Alcohol and Drug Abuse Patient Records regulations: The Federal rules restrict any use of the information to criminally investigate or prosecute any alcohol or drug abuse patient.[facility] HospitalIn the event this information is protected by the Federal Confidentiality of Alcohol and Drug Abuse Patient Records regulations: The Federal rules restrict any use of the information to criminally investigate or prosecute any alcohol or drug abuse patient.[facility] HospitalIn the event this information is protected by the Federal Confidentiality of Alcohol and Drug Abuse Patient Records regulations: The Federal rules restrict any use of the information to criminally investigate or prosecute any alcohol or drug abuse patient.[facility] HospitalIn the event this information is protected by the Federal Confidentiality of Alcohol and Drug Abuse Patient Records regulations: The Federal rules restrict any use of the information to criminally investigate or prosecute any alcohol or drug abuse patient.[facility] HospitalIn the event this information is protected by the Federal Confidentiality of Alcohol and Drug Abuse Patient Records regulations: The Federal rules restrict any use of the information to criminally investigate or prosecute any alcohol or drug abuse patient.[facility] HospitalIn the event this information is protected by the Federal Confidentiality of Alcohol and Drug Abuse Patient Records regulations: The Federal rules restrict any use of the information to criminally investigate or prosecute any alcohol or drug abuse patient.[facility] HospitalIn the event this information is protected by the Federal Confidentiality of Alcohol and Drug Abuse Patient Records regulations: The Federal rules restrict any use of the information to criminally investigate or prosecute any alcohol or drug abuse patient.[facility] HospitalIn the event this information is protected by the Federal Confidentiality of Alcohol and Drug Abuse Patient Records regulations: The Federal rules restrict any use of the information to criminally investigate or prosecute any alcohol or drug abuse patient.[facility] HospitalIn the event this information is protected by the Federal Confidentiality of Alcohol and Drug Abuse Patient Records regulations: The Federal rules restrict any use of the information to criminally investigate or prosecute any alcohol or drug abuse patient.[facility] HospitalIn the event this information is protected by the Federal Confidentiality of Alcohol and Drug Abuse Patient Records regulations: The Federal rules restrict any use of the information to criminally investigate or prosecute any alcohol or drug abuse patient.[facility] HospitalIn the event this information is protected by the Federal Confidentiality of Alcohol and Drug Abuse Patient Records regulations: The Federal rules restrict any use of the information to criminally investigate or prosecute any alcohol or drug abuse patient.[facility] HospitalIn the event this information is protected by the Federal Confidentiality of Alcohol and Drug Abuse Patient Records regulations: The Federal rules restrict any use of the information to criminally investigate or prosecute any alcohol or drug abuse patient.[facility] HospitalIn the event this information is protected by the Federal Confidentiality of Alcohol and Drug Abuse Patient Records regulations: The Federal rules restrict any use of the information to criminally investigate or prosecute any alcohol or drug abuse patient.[facility] HospitalIn the event this information is protected by the Federal Confidentiality of Alcohol and Drug Abuse Patient Records regulations: The Federal rules restrict any use of the information to criminally investigate or prosecute any alcohol or drug abuse patient.[facility] HospitalIn the event this information is protected by the Federal Confidentiality of Alcohol and Drug Abuse Patient Records regulations: The Federal rules restrict any use of the information to criminally investigate or prosecute any alcohol or drug abuse patient.[facility] HospitalIn the event this information is protected by the Federal Confidentiality of Alcohol and Drug Abuse Patient Records regulations: The Federal rules restrict any use of the information to criminally investigate or prosecute any alcohol or drug abuse patient.[facility] HospitalIn the event this information is protected by the Federal Confidentiality of Alcohol and Drug Abuse Patient Records regulations: The Federal rules restrict any use of the information to criminally investigate or prosecute any alcohol or drug abuse patient.[facility] Care Teams (unrecognized sec tion and content) Suede Cleaner Relationship Specialty Start Date End Date Elgin Bal MD [address] [place], [place] [address] PCP - General Family Practice 12/25/12 Anthony Olivares MD [address] [place], [place] [id number] Triage Licensed Practical Nurse Nephrology 03/19/21 Anthony Olivares MD [address] [place], [place] [id number] Primary Staff Physician Nephrology 12/10/21 Suede Cleaner Relationship Specialty Start Date End Date Elgin aBl MD [address] [place], [place] [id number] PCP - General Family Practice 12/25/12 Anthony Olivares MD [address] [place] [address] Triage Licensed Practical Nurse Nephrology 03/19/21 Anthony Olivares MD [address] [place] [address] Primary Staff Physician Nephrology 12/10/21 Suede Cleaner Relationship Specialty Start Date End Date Elgin Bal MD [address] [place] [address] PCP - General Family Practice 12/25/12 Anthony Olivares MD [address] [facility] [place] [address] Triage Licensed Practical Nurse Nephrology 03/19/21 Anthony Olivares MD [address] [place] [address] Primary Staff Physician Nephrology 12/10/21 Suede Cleaner Relationship Specialty Start Date End Date Elgin Bal MD [address] [place] [address] PCP - General Family Practice 12/25/12 Anthony Olivares MD [address] [facility] [place] [address] Triage Licensed Practical Nurse Nephrology 03/19/21 Anthony Olivares MD [address] [facility] [place] [address] Primary Staff Physician Nephrology 12/10/21 Suede Cleaner Relationship Specialty Start Date End Date Elgin Bal MD [address] [place] [address] PCP - General [facility] 12/25/12 Anthony Olivares MD [address] [place] [address] Triage Licensed Practical Nurse Nephrology 03/19/21 Anthony Olivares MD [address] [facility] [address] Primary Staff Physician Nephrology 12/10/21 Suede Cleaner Relationship Specialty Start Date End Date Elgin Bal MD [address] [place] [address], [place] [address] PCP - General Family Practice 12/25/12 Anthony Olivares MD [address] [place] [address] Triage Licensed Practical Nurse Nephrology 03/19/21 Anthony Olivares MD [address] [place] [address] Primary Staff Physician Nephrology 12/10/21 Suede Cleaner Relationship Specialty Start Date End Date Elgin Bal MD [address] [place] [address] PCP - General Family Medicine 12/25/12 Anthony Olivares MD [address] [place] [address] Triage Licensed Practical Nurse Nephrology 03/19/21 Anthony Olivares MD [address] [place] [address] Primary Staff Physician Nephrology 12/10/21 Suede Cleaner Relationship Specialty Start Date End Date Elgin Bal MD [address] [place] [address] PCP - General Family Medicine 12/25/12 Anthony Olivares MD [address] [place] [address] Triage Licensed Practical Nurse Nephrology 03/19/21 Anthony Olivares MD [address] [place] [address] Primary Staff Physician Nephrology 12/10/21 Suede Cleaner Relationship Specialty Start Date End Date Elgin Bal MD [address] [place] [address] PCP - General Family Medicine 12/25/12 Anthony Olivares MD [address] [place], [place] [id number] Triage Licensed Practical Nurse Nephrology 03/19/21 Anthony Olivares MD [address] [place] [address] Primary Staff Physician Nephrology 12/10/21 Suede Cleaner Relationship Specialty Start Date End Date Elgin Bal MD [address] [place] [address] PCP - General Family Medicine 12/25/12 Anthony Olivares MD [address] [place] [address] Triage Licensed Practical Nurse Nephrology 03/19/21 Anthony Olivares MD [address] [place] [address] Primary Staff Physician Nephrology 12/10/21 [...] CHANDLER Attending Provider, Referring Prov ider Active Suede Cleaner Relationship Specialty Start Date End Date Elgin Bal MD [address] [place] [address] PCP - General Family Medicine 12/25/12 Anthony Olivares MD [address] [place], [place] [id number] Triage Licensed Practical Nurse Nephrology 03/19/21 Anthony Olivares MD [address] [place], [place] [id number] Primary Staff Physician Nephrology 12/10/21 Team Status: Inactive Member Role Status Dates Dr. Elgin Bal MD Primary Care Provider Active Dr. Alfredo Phipps MD Attending Provider Active Team Status: Active Member Role Status Dates Dr. Elgin Bal MD Primary Care Provider Active Adam CHANDLER Attending Provider, Referring Prov ider Active Suede Cleaner Relationship Specialty Start Date End Date Elgin Bal MD [address] [place], [place] [address]291 PCP - General Family Medicine 12/25/12 Anthony Olivares MD [address] [place], [place] [id number] Triage Licensed Practical Nurse Nephrology 03/19/21 Anthony Olivares MD [address] [place], [place] [id number] Primary Staff Physician Nephrology 12/10/21 Suede Cleaner Relationship Specialty Start Date End Date Elgin Bal MD [address] [place] [address] PCP - General Family Medicine 12/25/12 Anthony Olivares MD [address] [place] [address] Triage Licensed Practical Nurse Nephrology 03/19/21 Anthony Olivares MD [address] [place], [place] [id number] Primary Staff Physician Nephrology 12/10/21 Suede Cleaner Relationship Specialty Start Date End Date Alfredo Phipps MD [address] [facility] [address] [place], [place] [id number] PCP - General Internal Medicine 10/19/23 Anthony Olivares MD [address] [place], [place] [address] Triage Licensed Practical Nurse Nephrology 03/19/21 Anthony Olivares MD [address] [place] [address] Primary Staff Physician Nephrology 12/10/21 Suede Cleaner Relationship Specialty Start Date End Date Alfredo Phipps MD [address] [facility] [address] [place] [address] PCP - General Internal Medicine 10/19/23 Anthony Olivares MD [address] [place] [address] Triage Licensed Practical Nurse Nephrology 03/19/21 Anthony Olivares MD [address] [place] [address] Primary Staff Physician Nephrology 12/10/21 Suede Cleaner Relationship Specialty Start Date End Date Alfredo Phipps MD [address] [place] [address] [place] [address] PCP - General Internal Medicine 10/19/23 Anthony Olivares MD [address] [place] [address] Triage Licensed Practical Nurse Nephrology 03/19/21 Anthony Olivares MD [address] [place] [address] Primary Staff Physician Nephrology 12/10/21 Suede Cleaner Relationship Specialty Start Date End Date Alfredo Phipps MD [address] [facility] [place] [address] [place] [address] PCP - General Internal Medicine 10/19/23 Anthony Olivares MD [address] [place] [address] Triage Licensed Practical Nurse Nephrology 03/19/21 Anthony Olivares MD [address] [place] [address] Primary Staff Physician Nephrology 12/10/21 Suede Cleaner Relationship Specialty Start Date End Date Alfredo Phipps MD [address] [facility] [address] [place] [address] PCP - General Internal Medicine 10/19/23 Anthony Olivares MD [address] [place] [address] Triage Licensed Practical Nurse Nephrology 03/19/21 Anthony Olivares MD [address] [place] [address] Primary Staff Physician Nephrology 12/10/21 Suede Cleaner Relationship Specialty Start Date End Date Alfredo Phipps MD [address] [place] [address] [place] [address] PCP - General Internal Medicine 10/19/23 Anthony Olivares MD [address] [place] [address] Triage Licensed Practical Nurse Nephrology 03/19/21 Anthony Olivares MD [address] [place] [address] Primary Staff Physician Nephrology 12/10/21 Suede Cleaner Relationship Specialty Start Date End Date Alfredo Phipps MD [address] [place] [address] [place] [address] PCP - General Internal Medicine 10/19/23 Anthony Olivares MD [address] [place] [address] Triage Licensed Practical Nurse Nephrology 03/19/21 Anthony Olivares MD [address] [place] [address] Primary Staff Physician Nephrology 12/10/21 Suede Cleaner Relationship Specialty Start Date End Date Alfredo Phipps MD [address] [place] [address] [place] [address] PCP - General Internal Medicine 10/19/23 Anthony Olivares MD [address] [place] [address] Triage Licensed Practical Nurse Nephrology 03/19/21 Anthony Olivares MD [address] [place] [address] Primary Staff Physician Nephrology 12/10/21 Suede Cleaner Relationship Specialty Start Date End Date Alfredo Phipps MD [address] [facility] [address] [place] [address] PCP - General Internal Medicine 10/19/23 Anthoyn Olivares MD [address] [place] [address] Triage Licensed Practical Nurse Nephrology 03/19/21 Anthony Olivares MD [address] [place] [address] Primary Staff Physician Nephrology 12/10/21 Suede Cleaner Relationship Specialty Start Date End Date Alfredo Phipps MD [address] [facility] [address] [place] [address] PCP - General Internal Medicine 10/19/23 Anthony Olivares MD [address] [place] [address] Triage Licensed Practical Nurse Nephrology 03/19/21 Anthony Olivares MD [address] [place] [address] Primary Staff Physician Nephrology 12/10/21 Suede Cleaner Relationship Specialty Start Date End Date Alfredo Phipps MD [address] [facility] [place] [address] [place] [address] PCP - General Internal Medicine 10/19/23 Anthony Olivares MD [address] [place] [address] Triage Licensed Practical Nurse Nephrology 03/19/21 Anthony Olivares MD [address] [place] [address] Primary Staff Physician Nephrology 12/10/21 Suede Cleaner Relationship Specialty Start Date End Date Alfredo Phipps MD [address] [facility] [address] [place] [address] PCP - General Internal Medicine 10/19/23 Anthony Olivares MD [address] [place] [address] Triage Licensed Practical Nurse Nephrology 03/19/21 Anthony Olivares MD [address] [place] [address] Primary Staff Physician Nephrology 12/10/21 Suede Cleaner Relationship Specialty Start Date End Date Alfredo Phipps MD [address] [facility] [address] [place] [address] PCP - General Internal Medicine 10/19/23 Anthony Olivares MD [address] [place] [address] Triage Licensed Practical Nurse Nephrology 03/19/21 Anthony Olivares MD [address] [place] [address] Primary Staff Physician Nephrology 12/10/21 Suede Cleaner Relationship Specialty Start Date End Date Alfredo Phipps MD [address] [place] [address] [place] [address] PCP - General Internal Medicine 10/19/23 Anthony Olivares MD [address] [place], [place] [id number] Triage Licensed Practical Nurse Nephrology 03/19/21 Anthony Olivares MD [address] [place] [address] Primary Staff Physician Nephrology 12/10/21 [...] January 30, 2025 End: January 30, 2025 Suede Cleaner Relationship Specialty Start Date End Date Alfredo Phipps MD [address] [facility] [address] [place] [address] PCP - General Internal Medicine 10/19/23 Anthony Olivares MD [address] [place] [address] Triage Licensed Practical Nurse Nephrology 03/19/21 Anthony Olivares MD [address] [place] [address] Primary Staff Physician Nephrology 12/10/21 Team Status: [...] Active Member Role/Relationship Status Dates Dr. Elgin aBl MD Primary Care Provider Active Start: April 26, 2025 Alfredo CHANDLER Attending Provider Active Sta rt: April 26, 2025 Team Status: Active Member Role/Relationship Status Dates Dr. Elgin Bal MD Primary Care Provider Active Start: May 02, 2025 Adam CHANDLER Attending Provider Active St art: May 02, 2025 Suede Cleaner Relationship Specialty Start Date End Date Alfredo Phipps MD [address] [facility] [address] [place] [address] PCP - General Internal Medicine 10/19/23 Anthony Olivares MD [address] [place] [address] Triage Licensed Practical Nurse Nephrology 03/19/21 Anthony Olivares MD [address] [place] [address] Primary Staff Physician Nephrology 12/10/21 Suede Cleaner Relationship Specialty Start Date End Date Alfredo Phipps MD [address] [facility] [place] [address] [place] [address] PCP - General Internal Medicine 10/19/23 Anthony Olivares MD [address] [place], [place] [id number] Triage Licensed Practical Nurse Nephrology 03/19/21 Anthony Olivares MD [address] [place], [place] [id number] Primary Staff Physician Nephrology 12/10/21 Suede Cleaner Relationship Specialty Start Date End Date Alfredo Phipps MD [address] [facility] [address] [place] [address] PCP - General Internal Medicine 10/19/23 Anthony Olivares MD [address] [place] [address] Triage Licensed Practical Nurse Nephrology 03/19/21 Anthony Olivares MD [address] [place] [address] Primary Staff Physician Nephrology 12/10/21 Team Status: Active Member Role/Relationship Status Dates Dr. Elgin Bal MD Primary care physician Active Team Status: Active Member Role/Relationship Status Dates Dr. Elgin Bal MD Primary care physician Active Start: April 24, 2025 Adam CHANDLER Attending physician Active S tart: April 24, 2025 Team Status: Inactive Member Role/Relationship Status Dates Dr. Elgin Bal MD Primary care physician Active Start: April 26, 2025 End: April 26, 2025 Alfredo CHANDLER Attending physician Active St art: April 26, 2025 End: April 26, 2025 Team Status: Active Member Role/Relationship Status Dates Dr. Elgin Bal MD Primary care physician Active Start: May 02, 2025 Adam CHANDLER Attending physician Active S tart: May 02, 2025 Team Status: Active Member Role/Relationship Status Dates Dr. Elgin Bal MD Primary care physician Active Start: May 24, 2025 Adam CHANDLER Attending physician Active S tart: May 24, 2025 Team Status: Active Member Role/Relationship Status Dates Dr. Elgin Bal MD Primary care physician Active Start: May 26, 2025 Adam CHANDLER Attending physician Active S tart: May 26, 2025 Team Status: Active Member Role/Relationship Status Dates Dr. Elgin Bal MD Primary care physician Active Start: May 28, 2025 Adam CHANDLER Attending physician Active S tart: May 28, 2025 Team Status: Active Member Role/Relationship Status Dates Dr. Elgin Bal MD Primary care physician Active Start: June 05, 2025 Adam CHANDLER Attending physician Active S tart: June 05, 2025 Team Status: Active Member Role/Relationship Status Dates Dr. Elgin Bal MD Primary care physician Active Start: June 19, 2025 Alfredo CHANDLER Attending physician Active St art: June 19, 2025 Team Status: Active Member Role/Relationship Status Dates Dr. Elgin Bal MD Primary care physician Active Start: June 20, 2025 Alfredo CHANDLER Attending physician Active St art: June 20, 2025 Team Status: Active Member Role/Relationship Status Dates Dr. Elgin Bal MD Primary care physician Active Start: June 27, 2025 Adam CHANDLER Attending physician Active S tart: June 27, 2025 Team Status: Active Member Role/Relationship Status Dates Dr. Elgin Bal MD Primary care physician Active Start: July 01, 2025 Adam CHANDLER Attending physician Active S tart: July 01, 2025 Adam CHANDLER Referring Provider Active St art: July 01, 2025 Team Status: Active Member Role/Relationship Status Dates Dr. Elgin Bal MD Primary care physician Active Start: July 02, 2025 Lasha CHANDLER MD Attending physician Active Start: July 02, 2025 Team Status: Active Member Role/Relationship Status Dates Dr. Elgin Bal MD Primary care physician Active Start: July 29, 2025 Alfredo CHANDLER Attending physician Active St art: July 29, 2025 Team Status: Active Member Role/Relationship Status Dates Dr. Elgin Bal MD Primary care physician Active Start: August 02, 2025 Adam CHANDLER Attending physician Active S tart: August 02, 2025 Team Status: Active Member Role/Relationship Status Dates Dr. Elgin Bal MD Primary care physician Active Start: August 09, 2025 Alfredo CHANDLER Attending physician Active art: August 09, 2025 Team Status: Active Member Role/Relationship Status Dates Dr. Elgin Bal MD Primary care physician Active Start: August 14, 2025 Alfredo CHANDLER Attending physician Active art: August 14, 2025 Team Status: Inactive Member Role/Relationship Status Dates Dr. Elgin Bal MD Primary care physician Active Start: May 28, 2025 End: May 28, 2025 Adam CHANDLER Attending physician Active S tart: May 28, 2025 End: May 28, 2025 Inactive Administered Medications - up to 3 most recent administrations Administered Medications (un recognized section and content) Medication Order MAR Action Action Date Dose Rate Site acetaminophen 1,000 mg tab(s) (TYLENOL) 1,000 mg, ORAL, ONCE, 1 dose, [place] 01/26/24 at 0730 Given 01/26/2024 7:43 AM EDT 1,000 mg diphenhydrAMINE 50 mg capsule (BENADRYL) 50 mg, ORAL, ONCE, 1 dose, [place] 01/26/24 at 0730 Given 01/26/2024 7:43 AM [...] BE BASED ON THE PRIMARY CLINICAL RECORDS. [facility]. provides no warranty or guarantee of the accuracy or completeness of information in this document.
[2025-10-02 09:38] LABS: Lithium 0.52 mmol/L (0.60-1.20)
== END ==
LOC: OLS.SANC 05:00
PROVIDERS: PCP Family Medicine; Visit Provider Internal Medicine
DX: Z79.899 Other long term (current) drug therapy (principal)
CPT/HCPCS: 36415; 80178

== ENCOUNTER → 2025-10-09 | Outpatient (REF) | payer MEDICARE, MEDICAID, SELFPAY ==
--- OUTSIDE RECORDS SUMMARY | 2025-10-09 04:51 | XMS RPT_ITS | CCD ---
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 [place], [address] Hemoglobin A1c percentageOrd ered By: Alfredo Phipps on 08-09-2025 HbA1c (Bld) [Mass fraction] 6.4 % High <5.7 [facility] Comment on above: Normal < 5.7 % Predi abetic 5.7 - 6.4 % Diabetic >or= 6.5 % Please note range changes. Lithiumon 08-02-2025 LI 0.61 mmol/L Normal 0.60-1.20 [facility] Comment on above: Order Comment: 111-2 Performed By: #### L 500.4050, L501.2300, L501.9060, L100.0100 #### [facility] [address] [place], [place], [address] Vitamin D,25 Hydroxyon 07-31 Vitamin D 25-OH 33.6 ng/mL Normal 30-100 [facility] Comment on above: Order Comment: 111-2 Result Comment: Moriah min D Status Deficiency: <20 ng/mL (50nmol/L) Insufficiency: 20-30 ng/mL (50-75 nmol/L) Sufficiency: 30-100 ng/mL (75-250 nmol/L) Toxicity: >100 ng/mL (>250 nmol/L) Performed By: #### L 500.4050, L501.2300, L501.9060, L100.0100 #### [facility] [address] [place], [place], [address] Absolute lymphocyte countOrd ered By: Alfredo Phipps on 07-29-2025 Lymphocytes Auto (Unsp spec) [#/Vol] 1.68 10*3/uL 0.83-4.51 [facility] Absolute neutrophil countOrd ered By: Alfredo Phipps on 07-29-2025 Neutrophils (Bld) [#/Vol] 5.6 10*3/uL 2.0-7.7 [facility] Anion gap in Serum or Plasma Ordered By: Alfredo Phipps on 07-29-2025 Anion gap [Moles/Vol] 10 mmol/L 03-28 [facility] Automated lymphocyte count a s percentage of total leukocytesOrdered By: Alfredo Phipps on 07-29-2025 Lymphocytes/100 WBC Auto (Unsp spec) 18.7 % Low - [facility] BUN/creatinine ratioOrdered By: Alfredo Phipps on 07-29-2025 Urea nitrogen/Creatinine [Mass ratio] 11.1 mg/mg - [facility] Basophil percentageOrdered B y: Alfredo Phipps on 09-15-2025 Basophils/100 WBC (Bld) 1.2 % High 0-1 [facility] Bilirubin, totalOrdered By: Alfredo Phipps on 07-29-2025 Bilirubin [Mass/Vol] 0.15 mg/dL 0.00-1.30 [facility] CBC W/Diff, Automatedon 07-15 Absolute Lymph 1.68 X10 3/uL Normal 0.83-4.51 [facility] Comment on above: Order Comment: 111-2 Performed By: #### L 500.4050, L501.2300, L501.9060, L100.0100 #### [facility] [address] [place], [address] Absolute Neut 5.6 X10 3/uL Normal 2.0-7.7 [facility] Comment on above: Order Comment: 111-2 Performed By: #### L 500.4050, L501.2300, L501.9060, L100.0100 #### [facility] [address] [place], [address] Basophils/100 WBC (Bld) 1.2 % High 0-1 [facility] Comment on above: Order Comment: 111-2 Performed By: #### L 500.4050, L501.2300, L501.9060, L100.0100 #### [facility] [address] [place], [address] Eosinophils/100 WBC (Bld) 4.2 % Normal 0-5 [facility] Comment on above: Order Comment: 111-2 Performed By: #### L 500.4050, L501.2300, L501.9060, L100.0100 #### [facility] [address] [place], [address] Erythrocyte distribution width (RBC) [Ratio] 12.6 % Normal 11.6-14.6 [facility] Comment on above: Order Comment: 111-2 Performed By: #### L 500.4050, L501.2300, L501.9060, L100.0100 #### [facility] [address] [place], [address] Hematocrit (Bld) [Volume fraction] 38.6 % Low 40-54 [facility] Comment on above: Order Comment: 111-2 Performed By: #### L 500.4050, L501.2300, L501.9060, L100.0100 #### [facility] [address] [place], [address] Hemoglobin (Bld) [Mass/Vol] 12.9 g/dL Low 13.0-16.5 [facility] Comment on above: Order Comment: 111-2 Performed By: #### L 500.4050, L501.2300, L501.9060, L100.0100 #### [facility] [address] [place], [address] IG% 0.400 Normal 0.0-0.9 [facility] Comment on above: Order Comment: 111-2 Result Comment: IG% - Immature Granulocytes (promyelocytes, myelocytes and metamyelocytes) > 1% indicates that a LEFT SHIFT is Present. Performed By: #### L 500.4050, L501.2300, L501.9060, L100.0100 #### [facility] [address] [place], [address] Lymphocytes/100 WBC (Bld) 18.7 % Low 19-41 [facility] Comment on above: Order Comment: 111-2 Performed By: #### L 500.4050, L501.2300, L501.9060, L100.0100 #### [facility] [address] [place], [address] MCH (RBC) [Entitic mass] 30.0 pg Normal 27.0-32.0 [facility] Comment on above: Order Comment: 111-2 Performed By: #### L 500.4050, L501.2300, L501.9060, L100.0100 #### [facility] [address] [place], [address] MCHC (RBC) [Mass/Vol] 33.4 g/dL Normal 32-36 [facility] Comment on above: Order Comment: 111-2 Performed By: #### L 500.4050, L501.2300, L501.9060, L100.0100 #### [facility] [address] [place], [address] MCV (RBC) [Entitic vol] 89.8 fL Normal 80-94 [facility] Comment on above: Order Comment: 111-2 Performed By: #### L 500.4050, L501.2300, L501.9060, L100.0100 #### [facility] [address] [place], [address] Monocytes/100 WBC (Bld) 13.2 % High 0-10 [facility] Comment on above: Order Comment: 111-2 Performed By: #### L 500.4050, L501.2300, L501.9060, L100.0100 #### [facility] [address] [place], [address] Neutrophils/100 WBC (Bld) 62.3 % Normal 47-70 [facility] Comment on above: Order Comment: 111-2 Performed By: #### L 500.4050, L501.2300, L501.9060, L100.0100 #### [facility] [address] [place], [address] Nucleated RBC (Bld) [#/Vol] 0 10*3/uL Normal 0-5 [facility] Comment on above: Order Comment: 111-2 Performed By: #### L 500.4050, L501.2300, L501.9060, L100.0100 #### [facility] [address] [place], [address] Platelet mean volume (Bld) [Entitic vol] 9.6 fL Normal 6.2-12.0 [facility] Comment on above: Order Comment: 111-2 Performed By: #### L 500.4050, L501.2300, L501.9060, L100.0100 #### [facility] [address] [place], [address] Platelets (Bld) [#/Vol] 231 10*3/uL Normal 150-450 [facility] Comment on above: Order Comment: 111-2 Performed By: #### L 500.4050, L501.2300, L501.9060, L100.0100 #### [facility] [address] [place], [address] RBC (Bld) [#/Vol] 4.30 10*6/uL Low 4.6-6.2 [facility] Comment on above: Order Comment: 111-2 Performed By: #### L 500.4050, L501.2300, L501.9060, L100.0100 #### [facility] [address] [place], [address] RDW SD 41.1 fl Normal 35.1-43.9 [facility] Comment on above: Order Comment: 111-2 Performed By: #### L 500.4050, L501.2300, L501.9060, L100.0100 #### [facility] [address] [place], [address] WBC (Bld) [#/Vol] 9.0 10*3/uL Normal 4.4-11.0 [facility] Comment on above: Order Comment: 111-2 Performed By: #### L 500.4050, L501.2300, L501.9060, L100.0100 #### [facility] [address] [place], [address] Carbon dioxide, total [Moles /volume] in Central venous bloodOrdered By: Alfredo Phipps on 07-29-2025 CO2 [Moles/Vol] 22.2 mmol/L 21.0-32.0 [facility] Chloride assayOrdered By: Chan Fiore on 07-29-2025 Chloride [Moles/Vol] 108 mmol/L 98-108 [facility] Comprehensive Metabolic Prof ilon 07-29-2025 Albumin [Mass/Vol] 3.6 g/dL Normal 3.4-4.8 [facility] Comment on above: Order Comment: 111-2 Performed By: #### L 500.4050, L501.2300, L501.9060, L100.0100 #### [facility] [address] [place], [address] Albumin/Globulin [Mass ratio] 1.5 {ratio} Normal 0.9-2.4 [facility] Comment on above: Order Comment: 111-2 Performed By: #### L 500.4050, L501.2300, L501.9060, L100.0100 #### [facility] [address] [place], [address] ALK PHOS 91 U/L Normal 40-129 [facility] Comment on above: Order Comment: 111-2 Performed By: #### L 500.4050, L501.2300, L501.9060, L100.0100 #### [facility] [address] [place], [address] ALT [Catalytic activity/Vol] 12 U/L Normal <=46 [facility] Comment on above: Order Comment: 111-2 Performed By: #### L 500.4050, L501.2300, L501.9060, L100.0100 #### [facility] [address] [place], [address] AST [Catalytic activity/Vol] 12 U/L Normal <=37 [facility] Comment on above: Order Comment: 111-2 Performed By: #### L 500.4050, L501.2300, L501.9060, L100.0100 #### [facility] [address] [place], [address] Bilirubin [Mass/Vol] 0.15 mg/dL Normal 0.00-1.30 [facility] Comment on above: Order Comment: 111-2 Performed By: #### L 500.4050, L501.2300, L501.9060, L100.0100 #### [facility] [address] [place], [address] BUN/CRE 11.1 RATIO Normal 10-20 [facility] Comment on above: Order Comment: 111-2 Performed By: #### L 500.4050, L501.2300, L501.9060, L100.0100 #### [facility] [address] [place], [address] Calcium [Mass/Vol] 9.2 mg/dL Normal 7.6-11.0 [facility] Comment on above: Order Comment: 111-2 Performed By: #### L 500.4050, L501.2300, L501.9060, L100.0100 #### [facility] [address] [place], [address] Chloride [Moles/Vol] 108 mmol/L Normal 98-108 [facility] Comment on above: Order Comment: 111-2 Performed By: #### L 500.4050, L501.2300, L501.9060, L100.0100 #### [facility] [address] [place], [address] CO2 [Moles/Vol] 22.2 mmol/L Normal 21.0-32.0 [facility] Comment on above: Order Comment: 111-2 Performed By: #### L 500.4050, L501.2300, L501.9060, L100.0100 #### [facility] [address] [place], [address] Creatinine [Mass/Vol] 2.36 mg/dL High 0.70-1.20 [facility] Comment on above: Order Comment: 111-2 Performed By: #### L 500.4050, L501.2300, L501.9060, L100.0100 #### [facility] [address] [place], [address] GAP 10 Normal 5-15 [facility] Comment on above: Order Comment: 111-2 Performed By: #### L 500.4050, L501.2300, L501.9060, L100.0100 #### [facility] [address] [place], [address] GFR/1.73 sq M.predicted among non-blacks MDRD (S/P/Bld) [Vol rate/Area] 30 mL/min/{1.73_m2} Low >60 [facility] Comment on above: Order Comment: 111-2 Result Comment: mL/m in/1.73m2 CKD-EPI Creatinine Equation (2020) Performed By: #### L 500.4050, L501.2300, L501.9060, L100.0100 #### [facility] [address] [place], [address] Globulin (S) [Mass/Vol] 2.4 g/dL Normal 2.2-4.2 [facility] Comment on above: Order Comment: 111-2 Performed By: #### L 500.4050, L501.2300, L501.9060, L100.0100 #### [facility] [address] [place], [address] Glucose [Mass/Vol] 136 mg/dL High 70-99 [facility] Comment on above: Order Comment: 111-2 Performed By: #### L 500.4050, L501.2300, L501.9060, L100.0100 #### [facility] [address] [place], [address] Potassium [Moles/Vol] 4.5 mmol/L Normal 3.3-5.1 [facility] Comment on above: Order Comment: 111-2 Performed By: #### L 500.4050, L501.2300, L501.9060, L100.0100 #### [facility] [address] [place], [address] Sodium [Moles/Vol] 140 mmol/L Normal 133-145 [facility] Comment on above: Order Comment: 111-2 Performed By: #### L 500.4050, L501.2300, L501.9060, L100.0100 #### [facility] [address] [place], [address] T PROT 6.0 g/dL Normal 5.9-8.4 [facility] Comment on above: Order Comment: 111-2 Performed By: #### L 500.4050, L501.2300, L501.9060, L100.0100 #### [facility] [address] [place], [address] Urea nitrogen [Mass/Vol] 26 mg/dL High 4-19 [facility] Comment on above: Order Comment: 111-2 Performed By: #### L 500.4050, L501.2300, L501.9060, L100.0100 #### [facility] [address] [place], [address] Eosinophil percentageOrdered By: Alfredo Phipps on 07-29-2025 Eosinophils/100 WBC (Bld) 4.2 % 0-5 [facility] Erythrocyte distribution wid th ratioOrdered By: Alfredo Phipps on 07-29-2025 Erythrocyte distribution width (RBC) [Ratio] 12.6 % 11.6-14.6 [facility] Erythrocyte distribution wid th standard deviationOrdered By: Alfredo Phipps on 07-29-2025 Erythrocyte distribution width (RBC) [Ratio] 41.1 fl 35.1-43.9 [facility] Glomerular filtration rate ( GFR) estimation/1.73 sq m using serum, plasma, or whole bOrdered By: Alfredo Phipps on 07-29-2025 GFR/1.73 sq M.predicted among non-blacks MDRD (S/P/Bld) [Vol rate/Area] 30 mL/min/{1.73_m2} Low >60 [facility] Comment on above: mL/min/1.73m2 CKD-EP I Creatinine Equation (2020) Hematocrit Auto (Bld) [Volum e fraction]Ordered By: Alfredo Phipps on 07-29-2025 Hematocrit (Bld) [Volume fraction] 38.6 % Low 40-54 [facility] Hemoglobin measurementOrdere d By: Alfredo Phipps on 07-29-2025 Hemoglobin (Bld) [Mass/Vol] 12.9 g/dL Low 13.0-16.5 [facility] Immature granulocytes/100 WB C Auto (Bld)Ordered By: Alfredo Phipps on 07-29-2025 Immature granulocytes/100 WBC (Bld) 0.400 % 0.0-0.9 [facility] Comment on above: IG% - Immature Granu locytes (promyelocytes, myelocytes and metamyelocytes) > 1% indicates that a LEFT SHIFT is Present. Laboratory - Chemistry and C hemistry - challengeOrdered By: Alfredo Phipps on 07-29-2025 AST [Catalytic activity/Vol] 12 U/L <38 [facility] MCV (mean corpuscular volume ) determinationOrdered By: Alfredo Phipps on 07-29-2025 MCV (RBC) [Entitic vol] 89.8 fL 80-94 [facility] Mean corpuscular hemoglobin (MCH) determinationOrdered By: Alfredo Phipps on 07-29-2025 MCH (RBC) [Entitic mass] 30.0 pg 27.0-32.0 [facility] Mean corpuscular hemoglobin concentration (MCHC) determinationOrdered By: Alfredo Phipps on 07-29-2025 MCHC (RBC) [Mass/Vol] 33.4 g/dL 32-36 [facility] Mean platelet volume determi nationOrdered By: Alfredo Phipps on 07-29-2025 Platelet mean volume (Bld) [Entitic vol] 9.6 fL 6.2-12.0 [facility] Monocyte percentageOrdered B y: Alfredo Phipps on 07-29-2025 Monocytes/100 WBC (Bld) 13.2 % High 0-10 [facility] Neutrophil percentageOrdered By: Alfredo Phipps on 07-29-2025 Neutrophils/100 WBC (Bld) 62.3 % 47-70 [facility] Nucleated red blood cell per centageOrdered By: Alfredo Phipps on 07-29-2025 Nucleated RBC/100 WBC (Bld) [Ratio] 0 % 0-5 [facility] Phosphoruson 07-29-2025 Phosphate [Mass/Vol] 4.6 mg/dL High 2.7-4.5 [facility] Comment on above: Order Comment: 111-2 Performed By: #### L 500.4050, L501.2300, L501.9060, L100.0100 #### [facility] [address] [place] [address], [address] Platelet countOrdered By: Chan Fiore on 07-29-2025 Platelets (Bld) [#/Vol] 231 10*3/uL 150-450 [facility] Potassium measurement (mass/ volume)Ordered By: Alfredo Phipps on 07-29-2025 Potassium (Unsp spec) [Mass/Vol] 4.5 mmol/L 3.3-5.1 [facility] RBC Auto (Bld) [#/Vol]Ordere d By: Alfredo Phipps on 07-29-2025 RBC (Bld) [#/Vol] 4.30 10*6/uL Low 4.6-6.2 [facility] Serum creatinine measurement (mass/volume)Ordered By: Alfredo Phipps on 07-29-2025 Creatinine [Mass/Vol] 2.36 mg/dL High 0.70-1.20 [facility] Serum globulin measurementOr dered By: Alfredo Phipps on 07-29-2025 Globulin (S) [Mass/Vol] 2.4 g/dL 2.2-4.2 [facility] Serum glucose measurement (m ass/volume)Ordered By: Alfredo Phipps on 07-29-2025 Glucose [Mass/Vol] 136 mg/dL High 70-99 [facility] Serum or plasma alanine sesay otransferase (ALT) measurementOrdered By: Alfredo Phipps on 07-29-2025 ALT [Catalytic activity/Vol] 12 U/L <47 [facility] Serum or plasma albumin you urement (mass/volume)Ordered By: Alfredo Phipps on 07-29-2025 Albumin [Mass/Vol] 3.6 g/dL 3.4-4.8 [facility] Serum or plasma albumin/glob ulin mass ratioOrdered By: Alfredo Phipps on 07-29-2025 Albumin/Globulin [Mass ratio] 1.5 {ratio} 0.9-2.4 [facility] Serum or plasma alkaline hal sphatase measurementOrdered By: Alfredo Phipps on 07-29-2025 ALP [Catalytic activity/Vol] 91 U/L 40-129 [facility] Serum or plasma calcium you urement (mass/volume)Ordered By: Alfredo Phipps on 07-29-2025 Calcium [Mass/Vol] 9.2 mg/dL 7.6-11.0 [facility] Serum or plasma urea nitroge n measurement (mass/volume)Ordered By: Alfredo Phipps on 07-29-2025 Urea nitrogen [Mass/Vol] 26 mg/dL High 4-19 [facility] Sodium levelOrdered By: Raffi Phipps on 07-29-2025 Sodium [Moles/Vol] 140 mmol/L 133-145 [facility] Total proteinOrdered By: Jennifer Phipps on 07-29-2025 Protein [Mass/Vol] 6.0 g/dL 5.9-8.4 [facility] White blood cell (WBC) count Ordered By: Alfredo Phipps on 07-29-2025 WBC (Bld) [#/Vol] 9.0 10*3/uL 4.4-11.0 [facility] Lithiumon 07-02-2025 LI 0.56 mmol/L Low 0.60-1.20 [facility] Comment on above: Order Comment: 111.2 UNKNOWN [id number] Performed By: #### L 501.9060 #### [facility] [address] [place], [address] Bilirubin directOrdered By: Adam Ferraro on 07-01-2025 Bilirubin.direct [Mass/Vol] 0.09 mg/dL 0.00-0.30 [facility] Bilirubin, totalOrdered By: Adam Ferraro on 07-01-2025 Bilirubin [Mass/Vol] 0.16 mg/dL 0.00-1.30 [facility] Laboratory - Chemistry and C hemistry - challengeOrdered By: Adam Ferraro on 07-01-2025 AST [Catalytic activity/Vol] 11 U/L <38 [facility] Liver Profileon 07-01-2025 Albumin [Mass/Vol] 3.5 g/dL Normal 3.4-4.8 [facility] Comment on above: Performed By: #### L 500.4050, L501.2300, L501.9060, L100.0100 #### [facility] [address] [place], [address] ALK PHOS 88 U/L Normal 40-129 [facility] Comment on above: Performed By: #### L 500.4050, L501.2300, L501.9060, L100.0100 #### [facility] [address] [place], [address] ALT [Catalytic activity/Vol] 13 U/L Normal <=46 [facility] Comment on above: Performed By: #### L 500.4050, L501.2300, L501.9060, L100.0100 #### [facility] [address] [place], [address] AST [Catalytic activity/Vol] 11 U/L Normal <=37 [facility] Comment on above: Performed By: #### L 500.4050, L501.2300, L501.9060, L100.0100 #### [facility] [address] [place] [place], [address] Bilirubin [Mass/Vol] 0.16 mg/dL Normal 0.00-1.30 [facility] Comment on above: Performed By: #### L 500.4050, L501.2300, L501.9060, L100.0100 #### [facility] [address] [place], [address] Bilirubin.direct [Mass/Vol] 0.09 mg/dL Normal 0.00-0.30 [facility] Comment on above: Performed By: #### L 500.4050, L501.2300, L501.9060, L100.0100 #### [facility] [address] [place], [address] Globulin (S) [Mass/Vol] 2.4 g/dL Normal 2.2-4.2 [facility] Comment on above: Performed By: #### L 500.4050, L501.2300, L501.9060, L100.0100 #### [facility] [address] [place], [address] T PROT 5.8 g/dL Low 5.9-8.4 [facility] Comment on above: Performed By: #### L 500.4050, L501.2300, L501.9060, L100.0100 #### [facility] [address] [place], [address] Serum globulin measurementOr dered By: Adam Ferraro on 07-01-2025 Globulin (S) [Mass/Vol] 2.4 g/dL 2.2-4.2 [facility] Serum or plasma alanine sesay otransferase (ALT) measurementOrdered By: Adam Ferraro on 07-01-2025 ALT [Catalytic activity/Vol] 13 U/L <47 [facility] Serum or plasma albumin you urement (mass/volume)Ordered By: Adam Ferraro on 07-01-2025 Albumin [Mass/Vol] 3.5 g/dL 3.4-4.8 [facility] Serum or plasma alkaline hal sphatase measurementOrdered By: Adam Jasmine on 07-01-2025 ALP [Catalytic activity/Vol] 88 U/L 40-129 [facility] Total proteinOrdered By: Benoit ivey Jasmine on 07-01-2025 Protein [Mass/Vol] 5.8 g/dL Low 5.9-8.4 [facility] Serum or plasma uric acid me asurement (mass/volume)Ordered By: Adam Ferraro on 06-27-2025 Urate [Mass/Vol] 5.8 mg/dL 3.5-7.2 [facility] Comment on above: The drugs N-Acetylcy steine and Metamizole may falsely depress this assay. Uric Acidon 06-27-2025 URIC 5.8 mg/dL Normal 3.5-7.2 [facility] Comment on above: Order Comment: [id number] Result Comment: The drugs N-Acetylcysteine and Metamizole may falsely depress this assay. Performed By: #### L 500.4050, L501.2300, L501.9060, L100.0100 #### [facility] [address] [place], [address] Protein+Creatinine Ratio,Uri neon 06-20-2025 PROT:CRE RATIO 227 mg/g CRE High 0-200 [facility] Comment on above: Order Comment: [id number] Performed By: #### L 500.4050, L501.2300, L501.9060, L100.0100 #### [facility] [address] [place], [address] UR CREAT 33.80 mg/dL Low 39.00-259.0 0 [facility] Comment on above: Order Comment: [id number] Performed By: #### L 500.4050, L501.2300, L501.9060, L100.0100 #### [facility] [address] [place], [address] Random urine creatinine you urement (mass/volume)Ordered By: Alfredo Phipps on 06-20-2025 Creatinine Unsp time (U) [Mass/Vol] 33.80 mg/dL Low 39.00-259.0 0 [facility] Urine protein measurement (m ass/volume)Ordered By: Alfredo Phipps on 06-20-2025 Protein (U) [Mass/Vol] 7.7 mg/dL Normal 0.0-12.0 [facility] Comment on above: Order Comment: 111-2 [id number] Performed By: #### L 500.4050, L501.2300, L501.9060, L100.0100 #### [facility] [address] [place], [address] Urine protein/creatinine mas s ratioOrdered By: Alfredo Phipps on 06-20-2025 Protein/Creatinine (U) [Mass ratio] 227 mg/g CRE High 0-200 [facility] Absolute lymphocyte countOrd ered By: Alfredo Phipps on 06-19-2025 Lymphocytes Auto (Unsp spec) [#/Vol] 1.75 10*3/uL 0.83-4.51 [facility] Absolute neutrophil countOrd ered By: Alfredo Phipps on 06-19-2025 Neutrophils (Bld) [#/Vol] 5.4 10*3/uL 2.0-7.7 [facility] Anion gap in Serum or Plasma Ordered By: Alfredo Phipps on 06-19-2025 Anion gap [Moles/Vol] 13 mmol/L 5-15 [facility] Automated lymphocyte count a s percentage of total leukocytesOrdered By: Alfredo Phipps on 06-19-2025 Lymphocytes/100 WBC Auto (Unsp spec) 20.1 % 19-41 [facility] BUN/creatinine ratioOrdered By: Alfredo Phipps on 06-19-2025 Urea nitrogen/Creatinine [Mass ratio] 11.3 mg/mg 10-20 [facility] Basophil percentageOrdered B y: Alfredo Phipps on 06-19-2025 Basophils/100 WBC (Bld) 1.0 % 0-1 [facility] Bilirubin, totalOrdered By: Alfredo Phipps on 06-19-2025 Bilirubin [Mass/Vol] 0.22 mg/dL 0.00-1.30 [facility] CBC W/Diff, Automatedon 08-0 6-2024 Absolute Lymph 1.75 X10 3/uL Normal 0.83-4.51 [facility] Comment on above: Order Comment: 111-2 Performed By: #### L 500.4050, L501.2300, L501.9060, L100.0100 #### [facility] [address] [place], [address] Absolute Neut 5.4 X10 3/uL Normal 2.0-7.7 [facility] Comment on above: Order Comment: 111-2 Performed By: #### L 500.4050, L501.2300, L501.9060, L100.0100 #### [facility] [address] [place], [address] Basophils/100 WBC (Bld) 1.0 % Normal 0-1 [facility] Comment on above: Order Comment: 111-2 Performed By: #### L 500.4050, L501.2300, L501.9060, L100.0100 #### [facility] [address] [place], [address] Eosinophils/100 WBC (Bld) 6.0 % High 0-5 [facility] Comment on above: Order Comment: 111-2 Performed By: #### L 500.4050, L501.2300, L501.9060, L100.0100 #### [facility] [address] [place], [address] Erythrocyte distribution width (RBC) [Ratio] 12.7 % Normal 11.6-14.6 [facility] Comment on above: Order Comment: 111-2 Performed By: #### L 500.4050, L501.2300, L501.9060, L100.0100 #### [facility] [address] [place], [address] Hematocrit (Bld) [Volume fraction] 39.2 % Low 40-54 [facility] Comment on above: Order Comment: 111-2 Performed By: #### L 500.4050, L501.2300, L501.9060, L100.0100 #### [facility] [address] [place], [address] Hemoglobin (Bld) [Mass/Vol] 12.8 g/dL Low 13.0-16.5 [facility] Comment on above: Order Comment: 111-2 Performed By: #### L 500.4050, L501.2300, L501.9060, L100.0100 #### [facility] [address] [place], [address] IG% 0.500 Normal 0.0-0.9 [facility] Comment on above: Order Comment: 111-2 Result Comment: IG% - Immature Granulocytes (promyelocytes, myelocytes and metamyelocytes) > 1% indicates that a LEFT SHIFT is Present. Performed By: #### L 500.4050, L501.2300, L501.9060, L100.0100 #### [facility] [address] [place], [address] Lymphocytes/100 WBC (Bld) 20.1 % Normal 19-41 [facility] Comment on above: Order Comment: 111-2 Performed By: #### L 500.4050, L501.2300, L501.9060, L100.0100 #### [facility] [address] [place], [address] MCH (RBC) [Entitic mass] 30.0 pg Normal 27.0-32.0 [facility] Comment on above: Order Comment: 111-2 Performed By: #### L 500.4050, L501.2300, L501.9060, L100.0100 #### [facility] [address] [place], [address] MCHC (RBC) [Mass/Vol] 32.7 g/dL Normal 32-36 [facility] Comment on above: Order Comment: 111-2 Performed By: #### L 500.4050, L501.2300, L501.9060, L100.0100 #### [facility] [address] [place], [address] MCV (RBC) [Entitic vol] 91.8 fL Normal 80-94 [facility] Comment on above: Order Comment: 111-2 Performed By: #### L 500.4050, L501.2300, L501.9060, L100.0100 #### [facility] [address] [place], [address] Monocytes/100 WBC (Bld) 10.7 % High 0-10 [facility] Comment on above: Order Comment: 111-2 Performed By: #### L 500.4050, L501.2300, L501.9060, L100.0100 #### [facility] [address] [place], [address] Neutrophils/100 WBC (Bld) 61.7 % Normal 47-70 [facility] Comment on above: Order Comment: 111-2 Performed By: #### L 500.4050, L501.2300, L501.9060, L100.0100 #### [facility] [address] [place], [address] Nucleated RBC (Bld) [#/Vol] 0 10*3/uL Normal 0-5 [facility] Comment on above: Order Comment: 111-2 Performed By: #### L 500.4050, L501.2300, L501.9060, L100.0100 #### [facility] [address] [place], [address] Platelet mean volume (Bld) [Entitic vol] 9.5 fL Normal 6.2-12.0 [facility] Comment on above: Order Comment: 111-2 Performed By: #### L 500.4050, L501.2300, L501.9060, L100.0100 #### [facility] [address] [place], [address] Platelets (Bld) [#/Vol] 247 10*3/uL Normal 150-450 [facility] Comment on above: Order Comment: 111-2 Performed By: #### L 500.4050, L501.2300, L501.9060, L100.0100 #### [facility] [address] [place], [address] RBC (Bld) [#/Vol] 4.27 10*6/uL Low 4.6-6.2 [facility] Comment on above: Order Comment: 111-2 Performed By: #### L 500.4050, L501.2300, L501.9060, L100.0100 #### [facility] [address] [place], [address] RDW SD 42.5 fl Normal 35.1-43.9 [facility] Comment on above: Order Comment: 111-2 Performed By: #### L 500.4050, L501.2300, L501.9060, L100.0100 #### [facility] [address] [place], [address] WBC (Bld) [#/Vol] 8.7 10*3/uL Normal 4.4-11.0 [facility] Comment on above: Order Comment: 111-2 Performed By: #### L 500.4050, L501.2300, L501.9060, L100.0100 #### [facility] [address] [place], [address] Carbon dioxide, total [Moles /volume] in Central venous bloodOrdered By: Alfredo Phipps on 06-19-2025 CO2 [Moles/Vol] 19.9 mmol/L Low 21.0-32.0 [facility] Chloride assayOrdered By: Chan Fiore on 06-19-2025 Chloride [Moles/Vol] 105 mmol/L 98-108 [facility] Comprehensive Metabolic Prof ilon 06-19-2025 Albumin [Mass/Vol] 3.6 g/dL Normal 3.4-4.8 [facility] Comment on above: Order Comment: 111-2 Performed By: #### L 500.4050, L501.2300, L501.9060, L100.0100 #### [facility] [address] [place], [address] Albumin/Globulin [Mass ratio] 1.4 {ratio} Normal 0.9-2.4 [facility] Comment on above: Order Comment: 111-2 Performed By: #### L 500.4050, L501.2300, L501.9060, L100.0100 #### [facility] [address] [place], [address] ALK PHOS 91 U/L Normal 40-129 [facility] Comment on above: Order Comment: 111-2 Performed By: #### L 500.4050, L501.2300, L501.9060, L100.0100 #### [facility] [address] [place], [address] ALT [Catalytic activity/Vol] 8 U/L Normal <=46 [facility] Comment on above: Order Comment: 111-2 Performed By: #### L 500.4050, L501.2300, L501.9060, L100.0100 #### [facility] [address] [place], [address] AST [Catalytic activity/Vol] 14 U/L Normal <=37 [facility] Comment on above: Order Comment: 111-2 Performed By: #### L 500.4050, L501.2300, L501.9060, L100.0100 #### [facility] [address] [place], [address] Bilirubin [Mass/Vol] 0.22 mg/dL Normal 0.00-1.30 [facility] Comment on above: Order Comment: 111-2 Performed By: #### L 500.4050, L501.2300, L501.9060, L100.0100 #### [facility] [address] [place], [address] BUN/CRE 11.3 RATIO Normal 10-20 [facility] Comment on above: Order Comment: 111-2 Performed By: #### L 500.4050, L501.2300, L501.9060, L100.0100 #### [facility] [address] [place], [address] Calcium [Mass/Vol] 9.3 mg/dL Normal 7.6-11.0 [facility] Comment on above: Order Comment: 111-2 Performed By: #### L 500.4050, L501.2300, L501.9060, L100.0100 #### [facility] [address] [place], [address] Chloride [Moles/Vol] 105 mmol/L Normal 98-108 [facility] Comment on above: Order Comment: 111-2 Performed By: #### L 500.4050, L501.2300, L501.9060, L100.0100 #### [facility] [address] [place], [address] CO2 [Moles/Vol] 19.9 mmol/L Low 21.0-32.0 [facility] Comment on above: Order Comment: 111-2 Performed By: #### L 500.4050, L501.2300, L501.9060, L100.0100 #### [facility] [address] [place], [address] Creatinine [Mass/Vol] 2.26 mg/dL High 0.70-1.20 [facility] Comment on above: Order Comment: 111-2 Performed By: #### L 500.4050, L501.2300, L501.9060, L100.0100 #### [facility] [address] [place], [address] GAP 13 Normal 5-15 [facility] Comment on above: Order Comment: 111-2 Performed By: #### L 500.4050, L501.2300, L501.9060, L100.0100 #### [facility] [address] [place], [address] GFR/1.73 sq M.predicted among non-blacks MDRD (S/P/Bld) [Vol rate/Area] 32 mL/min/{1.73_m2} Low >60 [facility] Comment on above: Order Comment: 111-2 Result Comment: mL/m in/1.73m2 CKD-EPI Creatinine Equation (2020) Performed By: #### L 500.4050, L501.2300, L501.9060, L100.0100 #### [facility] [address] [place], [address] Globulin (S) [Mass/Vol] 2.5 g/dL Normal 2.2-4.2 [facility] Comment on above: Order Comment: 111-2 Performed By: #### L 500.4050, L501.2300, L501.9060, L100.0100 #### [facility] [address] [place], [address] Glucose [Mass/Vol] 122 mg/dL High 70-99 [facility] Comment on above: Order Comment: 111-2 Performed By: #### L 500.4050, L501.2300, L501.9060, L100.0100 #### [facility] [address] [place], [address] Potassium [Moles/Vol] 4.3 mmol/L Normal 3.3-5.1 [facility] Comment on above: Order Comment: 111-2 Performed By: #### L 500.4050, L501.2300, L501.9060, L100.0100 #### [facility] [address] [place], [address] Sodium [Moles/Vol] 137 mmol/L Normal 133-145 [facility] Comment on above: Order Comment: 111-2 Performed By: #### L 500.4050, L501.2300, L501.9060, L100.0100 #### [facility] [address] [place], [address] T PROT 6.1 g/dL Normal 5.9-8.4 [facility] Comment on above: Order Comment: 111-2 Performed By: #### L 500.4050, L501.2300, L501.9060, L100.0100 #### [facility] [address] [place], [address] Urea nitrogen [Mass/Vol] 26 mg/dL High 4-19 [facility] Comment on above: Order Comment: 111-2 Performed By: #### L 500.4050, L501.2300, L501.9060, L100.0100 #### [facility] [address] [place], [address] Eosinophil percentageOrdered By: Alfredo Phipps on 06-19-2025 Eosinophils/100 WBC (Bld) 6.0 % High 0-5 [facility] Erythrocyte distribution wid th ratioOrdered By: Alfredo Phipps on 06-19-2025 Erythrocyte distribution width (RBC) [Ratio] 12.7 % 11.6-14.6 [facility] Erythrocyte distribution wid th standard deviationOrdered By: Alfredo Phipps on 06-19-2025 Erythrocyte distribution width (RBC) [Ratio] 42.5 fl 35.1-43.9 [facility] Glomerular filtration rate ( GFR) estimation/1.73 sq m using serum, plasma, or whole bOrdered By: Alfredo Phipps on 06-19-2025 GFR/1.73 sq M.predicted among non-blacks MDRD (S/P/Bld) [Vol rate/Area] 32 mL/min/{1.73_m2} Low >60 [facility] Comment on above: mL/min/1.73m2 CKD-EP I Creatinine Equation (2020) Hematocrit Auto (Bld) [Volum e fraction]Ordered By: Alfredo Phipps on 06-19-2025 Hematocrit (Bld) [Volume fraction] 39.2 % Low 40-54 [facility] Hemoglobin measurementOrdere d By: Alfredo Phipps on 06-19-2025 Hemoglobin (Bld) [Mass/Vol] 12.8 g/dL Low 13.0-16.5 [facility] Immature granulocytes/100 WB C Auto (Bld)Ordered By: Alfredo Phipps on 06-19-2025 Immature granulocytes/100 WBC (Bld) 0.500 % 0.0-0.9 [facility] Comment on above: IG% - Immature Granu locytes (promyelocytes, myelocytes and metamyelocytes) > 1% indicates that a LEFT SHIFT is Present. Laboratory - Chemistry and C hemistry - challengeOrdered By: Alfredo Phipps on 06-19-2025 AST [Catalytic activity/Vol] 14 U/L <38 [facility] Lithiumon 06-19-2025 LI 0.56 mmol/L Low 0.60-1.20 [facility] Comment on above: Order Comment: 111-2 Performed By: #### L 500.4050, L501.2300, L501.9060, L100.0100 #### [facility] [address] [place], [address] MCV (mean corpuscular volume ) determinationOrdered By: Alfredo Phipps on 06-19-2025 MCV (RBC) [Entitic vol] 91.8 fL 80-94 [facility] Mean corpuscular hemoglobin (MCH) determinationOrdered By: Alfredo Phipps on 06-19-2025 MCH (RBC) [Entitic mass] 30.0 pg 27.0-32.0 [facility] Mean corpuscular hemoglobin concentration (MCHC) determinationOrdered By: Alfredo Phipps on 06-19-2025 MCHC (RBC) [Mass/Vol] 32.7 g/dL 32-36 [facility] Mean platelet volume determi nationOrdered By: Alfredo Phipps on 06-19-2025 Platelet mean volume (Bld) [Entitic vol] 9.5 fL 6.2-12.0 [facility] Monocyte percentageOrdered B y: Alfredo Phipps on 06-19-2025 Monocytes/100 WBC (Bld) 10.7 % High 0-10 [facility] Neutrophil percentageOrdered By: Alfredo Phipps on 06-19-2025 Neutrophils/100 WBC (Bld) 61.7 % 47-70 [facility] Nucleated red blood cell per centageOrdered By: Alfredo Phipps on 06-19-2025 Nucleated RBC/100 WBC (Bld) [Ratio] 0 % 0-5 [facility] Phosphoruson 06-19-2025 Phosphate [Mass/Vol] 4.5 mg/dL Normal 2.7-4.5 [facility] Comment on above: Order Comment: 111-2 Performed By: #### L 500.4050, L501.2300, L501.9060, L100.0100 #### [facility] [address] [place], [address] Platelet countOrdered By: Chan Fiore on 06-19-2025 Platelets (Bld) [#/Vol] 247 10*3/uL 150-450 [facility] Potassium measurement (mass/ volume)Ordered By: Alfredo Phipps on 06-19-2025 Potassium (Unsp spec) [Mass/Vol] 4.3 mmol/L 3.3-5.1 [facility] RBC Auto (Bld) [#/Vol]Ordere d By: Alfredo Phipps on 06-19-2025 RBC (Bld) [#/Vol] 4.27 10*6/uL Low 4.6-6.2 [facility] Serum creatinine measurement (mass/volume)Ordered By: Alfredo Phipps on 06-19-2025 Creatinine [Mass/Vol] 2.26 mg/dL High 0.70-1.20 [facility] Serum globulin measurementOr dered By: Alfredo Phipps on 06-19-2025 Globulin (S) [Mass/Vol] 2.5 g/dL 2.2-4.2 [facility] Serum glucose measurement (m ass/volume)Ordered By: Alfredo Phipps on 06-19-2025 Glucose [Mass/Vol] 122 mg/dL High 70-99 [facility] Serum or plasma alanine sesay otransferase (ALT) measurementOrdered By: Alfredo Phipps on 06-19-2025 ALT [Catalytic activity/Vol] 8 U/L <47 [facility] Serum or plasma albumin you urement (mass/volume)Ordered By: Alfredo Phipps on 06-19-2025 Albumin [Mass/Vol] 3.6 g/dL 3.4-4.8 [facility] Serum or plasma albumin/glob ulin mass ratioOrdered By: Alfredo Phipps on 06-19-2025 Albumin/Globulin [Mass ratio] 1.4 {ratio} 0.9-2.4 [facility] Serum or plasma alkaline hal sphatase measurementOrdered By: Alfredo Phipps on 06-19-2025 ALP [Catalytic activity/Vol] 91 U/L 40-129 [facility] Serum or plasma calcium you urement (mass/volume)Ordered By: Alfredo Phipps on 06-19-2025 Calcium [Mass/Vol] 9.3 mg/dL 7.6-11.0 [facility] Serum or plasma urea nitroge n measurement (mass/volume)Ordered By: Alfredo Phipps on 06-19-2025 Urea nitrogen [Mass/Vol] 26 mg/dL High 4-19 [facility] Sodium levelOrdered By: Raffi Phipps on 06-19-2025 Sodium [Moles/Vol] 137 mmol/L 133-145 [facility] Total proteinOrdered By: Jennifer Phipps on 06-19-2025 Protein [Mass/Vol] 6.1 g/dL 5.9-8.4 [facility] White blood cell (WBC) count Ordered By: Alfredo Phipps on 06-19-2025 WBC (Bld) [#/Vol] 8.7 10*3/uL 4.4-11.0 [facility] EST Glomerular Filtration Ra meredith 06-05-2025 GFR/1.73 sq M.predicted among non-blacks MDRD (S/P/Bld) [Vol rate/Area] 30 mL/min/{1.73_m2} Low >60 [facility] Comment on above: Order Comment: 111-2 [id number] Result Comment: mL/m in/1.73m2 CKD-EPI Creatinine Equation (2020) Performed By: #### L 500.4050, L501.2300, L501.9060, L100.0100 #### [facility] [address] [place], [place], [address] Glomerular filtration rate ( GFR) estimation/1.73 sq m using serum, plasma, or whole bOrdered By: Adam Ferraro on 06-05-2025 GFR/1.73 sq M.predicted among non-blacks MDRD (S/P/Bld) [Vol rate/Area] 30 mL/min/{1.73_m2} Low >60 [facility] Comment on above: mL/min/1.73m2 CKD-EP I Creatinine Equation (2020) Urine Cultureon 05-29-2025 [facility] Mixed Gram Positive Organisms Sebastian Count 11,000-25,000 [facility] Mixed contaminants. Submit a new specimen if indicated. Normal [facility] Comment on above: Performed By: #### L 500.4050, L501.2300, L501.9060, L100.0100 #### [facility] [address] [place], [place], [address] Absolute lymphocyte countOrd ered By: Adam Ferraro on 05-28-2025 Lymphocytes Auto (Unsp spec) [#/Vol] 2.10 10*3/uL 0.83-4.51 [facility] [place] Absolute neutrophil countOrd ered By: Adam Ferraro on 05-28-2025 Neutrophils (Bld) [#/Vol] 5.2 10*3/uL 2.0-7.7 [facility] Automated lymphocyte count a s percentage of total leukocytesOrdered By: Adam Ferraro on 05-28-2025 Lymphocytes/100 WBC Auto (Unsp spec) 23.5 % 19-41 [facility] Basophil percentageOrdered B y: Adam Ferraro on 05-28-2025 Basophils/100 WBC (Bld) 1.0 % 0-1 [facility] CBC W/Diff, Automatedon 05-14 Absolute Lymph 2.10 X10 3/uL Normal 0.83-4.51 [facility] Comment on above: Order Comment: 20250814 Performed By: #### L 500.4050, L501.2300, L501.9060, L100.0100 #### [facility] [address] [place], [address] Absolute Neut 5.2 X10 3/uL Normal 2.0-7.7 [facility] Comment on above: Order Comment: 20250814 Performed By: #### L 500.4050, L501.2300, L501.9060, L100.0100 #### [facility] [address] [place], [address] Basophils/100 WBC (Bld) 1.0 % Normal 0-1 [facility] Comment on above: Order Comment: 20250814 Performed By: #### L 500.4050, L501.2300, L501.9060, L100.0100 #### [facility] [address] [place], [address] Eosinophils/100 WBC (Bld) 5.5 % High 0-5 [facility] Comment on above: Order Comment: 20250814 Performed By: #### L 500.4050, L501.2300, L501.9060, L100.0100 #### [facility] [address] [place], [address] Erythrocyte distribution width (RBC) [Ratio] 12.5 % Normal 11.6-14.6 [facility] Comment on above: Order Comment: 111-2 [id number] Performed By: #### L 500.4050, L501.2300, L501.9060, L100.0100 #### [facility] [address] [place], [address] Hematocrit (Bld) [Volume fraction] 39.7 % Low 40-54 [facility] Comment on above: Order Comment: 20250814 Performed By: #### L 500.4050, L501.2300, L501.9060, L100.0100 #### [facility] [address] [place], [address] Hemoglobin (Bld) [Mass/Vol] 13.3 g/dL Normal 13.0-16.5 [facility] Comment on above: Order Comment: 20250814 Performed By: #### L 500.4050, L501.2300, L501.9060, L100.0100 #### [facility] [address] [place], [address] IG% 0.700 Normal 0.0-0.9 [facility] Comment on above: Order Comment: 20250814 Result Comment: IG% - Immature Granulocytes (promyelocytes, myelocytes and metamyelocytes) > 1% indicates that a LEFT SHIFT is Present. Performed By: #### L 500.4050, L501.2300, L501.9060, L100.0100 #### [facility] [address] [place], [address] Lymphocytes/100 WBC (Bld) 23.5 % Normal 19-41 [facility] Comment on above: Order Comment: 20250814 Performed By: #### L 500.4050, L501.2300, L501.9060, L100.0100 #### [facility] [address] [place], [address] MCH (RBC) [Entitic mass] 30.2 pg Normal 27.0-32.0 [facility] Comment on above: Order Comment: 20250814 Performed By: #### L 500.4050, L501.2300, L501.9060, L100.0100 #### [facility] [address] [place], [address] MCHC (RBC) [Mass/Vol] 33.5 g/dL Normal 32-36 [facility] Comment on above: Order Comment: 20250814 Performed By: #### L 500.4050, L501.2300, L501.9060, L100.0100 #### [facility] [address] [place], [address] MCV (RBC) [Entitic vol] 90.0 fL Normal 80-94 [facility] Comment on above: Order Comment: 20250814 Performed By: #### L 500.4050, L501.2300, L501.9060, L100.0100 #### [facility] [address] [place], [address] Monocytes/100 WBC (Bld) 11.1 % High 0-10 [facility] Comment on above: Order Comment: 20250814 Performed By: #### L 500.4050, L501.2300, L501.9060, L100.0100 #### [facility] [address] [place], [address] Neutrophils/100 WBC (Bld) 58.2 % Normal 47-70 [facility] Comment on above: Order Comment: 20250814 Performed By: #### L 500.4050, L501.2300, L501.9060, L100.0100 #### [facility] [address] [place], [address] Nucleated RBC (Bld) [#/Vol] 0 10*3/uL Normal 0-5 [facility] Comment on above: Order Comment: 20250814 0100 Performed By: #### L 500.4050, L501.2300, L501.9060, L100.0100 #### [facility] [address] [place], [address] Platelet mean volume (Bld) [Entitic vol] 9.2 fL Normal 6.2-12.0 [facility] Comment on above: Order Comment: 20250814 010 Performed By: #### L 500.4050, L501.2300, L501.9060, L100.0100 #### [facility] [address] [place], [address] Platelets (Bld) [#/Vol] 235 10*3/uL Normal 150-450 [facility] Comment on above: Order Comment: 20250814 Performed By: #### L 500.4050, L501.2300, L501.9060, L100.0100 #### [facility] [address] [place], [address] RBC (Bld) [#/Vol] 4.41 10*6/uL Low 4.6-6.2 [facility] Comment on above: Order Comment: 20250814 Performed By: #### L 500.4050, L501.2300, L501.9060, L100.0100 #### [facility] [address] [place], [address] RDW SD 41.1 fl Normal 35.1-43.9 [facility] Comment on above: Order Comment: 20250814 Performed By: #### L 500.4050, L501.2300, L501.9060, L100.0100 #### [facility] [place] [facility] [address] [place], [address] WBC (Bld) [#/Vol] 8.9 10*3/uL Normal 4.4-11.0 [facility] Comment on above: Order Comment: 111-2 [id number] Performed By: #### L 500.4050, L501.2300, L501.9060, L100.0100 #### [facility] [address] [place], [address] Eosinophil percentageOrdered By: Adam Ferraro on 05-28-2025 Eosinophils/100 WBC (Bld) 5.5 % High 0-5 [facility] Erythrocyte distribution wid th ratioOrdered By: Adam Ferraro on 05-28-2025 Erythrocyte distribution width (RBC) [Ratio] 12.5 % 11.6-14.6 [facility] Erythrocyte distribution wid th standard deviationOrdered By: Adam Ferraro on 05-28-2025 Erythrocyte distribution width (RBC) [Ratio] 41.1 fl 35.1-43.9 [facility] Hematocrit Auto (Bld) [Volum e fraction]Ordered By: Adam Ferraro on 05-28-2025 Hematocrit (Bld) [Volume fraction] 39.7 % Low 40-54 [facility] Hemoglobin measurementOrdere d By: Adam Ferraro on 05-28-2025 Hemoglobin (Bld) [Mass/Vol] 13.3 g/dL 13.0-16.5 [facility] Immature granulocytes/100 WB C Auto (Bld)Ordered By: Adam Ferraro on 05-28-2025 Immature granulocytes/100 WBC (Bld) 0.700 % 0.0-0.9 [facility] Comment on above: IG% - Immature Granu locytes (promyelocytes, myelocytes and metamyelocytes) > 1% indicates that a LEFT SHIFT is Present. MCV (mean corpuscular volume ) determinationOrdered By: Adam Ferraro on 05-28-2025 MCV (RBC) [Entitic vol] 90.0 fL 80-94 [facility] Mean corpuscular hemoglobin (MCH) determinationOrdered By: Adam Ferraro 05-28-2025 MCH (RBC) [Entitic mass] 30.2 pg 27.0-32.0 [facility] Mean corpuscular hemoglobin concentration (MCHC) determinationOrdered By: Adam Ferraro on 05-28-2025 MCHC (RBC) [Mass/Vol] 33.5 g/dL 32-36 [facility] Mean platelet volume determi nationOrdered By: Adam Ferraro on 05-28-2025 Platelet mean volume (Bld) [Entitic vol] 9.2 fL 6.2-12.0 [facility] Monocyte percentageOrdered B y: Adam Ferraro on 05-28-2025 Monocytes/100 WBC (Bld) 11.1 % High 0-10 [facility] Neutrophil percentageOrdered By: Adam Ferraro on 05-28-2025 Neutrophils/100 WBC (Bld) 58.2 % 47-70 [facility] Nucleated red blood cell per centageOrdered By: Adam Ferraro on 05-28-2025 Nucleated RBC/100 WBC (Bld) [Ratio] 0 % 0-5 [facility] Platelet countOrdered By: Sabino Ferraro on 05-28-2025 Platelets (Bld) [#/Vol] 235 10*3/uL 150-450 [facility] RBC Auto (Bld) [#/Vol]Ordere d By: Adam Ferraro on 05-28-2025 RBC (Bld) [#/Vol] 4.41 10*6/uL Low 4.6-6.2 [facility] White blood cell (WBC) count Ordered By: Adam Ferraro on 05-28-2025 WBC (Bld) [#/Vol] 8.9 10*3/uL 4.4-11.0 [facility] Protein+Creatinine Ratio,Uri neon 05-27-2025 PROT:CRE RATIO 172 mg/g CRE Normal 0-200 [facility] Comment on above: Performed By: #### L 500.4050, L501.2300, L501.9060, L100.0100 #### [facility] [address] [place], [place], [id number] PROTEIN,UR.RAN. < 6.0 Normal 0.0-12.0 [facility] Comment on above: Performed By: #### L 500.4050, L501.2300, L501.9060, L100.0100 #### [facility] [address] [place], [address] UR CREAT 25.50 mg/dL Low 39.00-259.0 0 [facility] Comment on above: Performed By: #### L 500.4050, L501.2300, L501.9060, L100.0100 #### [facility] [address] [place], [address] Uric Acidon 05-27-2025 URIC 6.3 mg/dL Normal 3.5-7.2 [facility] Comment on above: Order Comment: URIC ACID ADDED TO 05/24/25 LABWORK Result Comment: The drugs N-Acetylcysteine and Metamizole may falsely depress this assay. Performed By: #### L 100.0500, L500.4050, L501.1400 #### [facility] [address] [place], [address] Urinalysis, Routine (Dipstic k)on 05-27-2025 BILIRUBIN URINE Negative Normal Negative [facility] Comment on above: Order Comment: 20250814 Performed By: #### L 500.4050, L501.2300, L501.9060, L100.0100 #### [facility] [address] [place], [address] Clarity (U) Clear Normal Clear [facility] Comment on above: Order Comment: 20250814 Performed By: #### L 500.4050, L501.2300, L501.9060, L100.0100 #### [facility] [address] [place], [address] Color (U) Straw Normal Yellow [facility] Comment on above: Order Comment: 20250814 Performed By: #### L 500.4050, L501.2300, L501.9060, L100.0100 #### [facility] [address] [place], [address] GLUCOSE, UR Normal Normal Normal [facility] Comment on above: Order Comment: 20250814 Performed By: #### L 500.4050, L501.2300, L501.9060, L100.0100 #### [facility] [address] [place], [address] KETONE UR Negative Normal Negative [facility] Comment on above: Order Comment: 20250814 Performed By: #### L 500.4050, L501.2300, L501.9060, L100.0100 #### [facility] [address] [place], [address] LEUK ESTERASE 500 /ul Abnormal Negative [facility] Comment on above: Order Comment: 20250814 Performed By: #### L 500.4050, L501.2300, L501.9060, L100.0100 #### [facility] [address] [place], [address] Nitrite Ql (U) Negative Normal Negative [facility] Comment on above: Order Comment: 20250814 Performed By: #### L 500.4050, L501.2300, L501.9060, L100.0100 #### [facility] [address] [place], [address] OCCULT BLOOD-UR Negative Normal Negative [facility] Comment on above: Order Comment: 20250814 Performed By: #### L 500.4050, L501.2300, L501.9060, L100.0100 #### [facility] [address] [place], [address] pH UR 6.5 Normal 5.0 - 8.0 [facility] Comment on above: Order Comment: 20250814 Performed By: #### L 500.4050, L501.2300, L501.9060, L100.0100 #### [facility] [address] [place], [address] PROT DIPSTX Negative Normal Negative [facility] Comment on above: Order Comment: 20250814 Performed By: #### L 500.4050, L501.2300, L501.9060, L100.0100 #### [facility] [address] [place], [address] SP.GR. DIPSTX 1.005 Normal 1.002-1.030 [facility] Comment on above: Order Comment: 20250814 Performed By: #### L 500.4050, L501.2300, L501.9060, L100.0100 #### [facility] [address] [place], [address] UROBILI Normal Normal Normal [facility] Comment on above: Order Comment: 20250814 Performed By: #### L 500.4050, L501.2300, L501.9060, L100.0100 #### [facility] [address] [place], [address] Bilirubin Test strip Ql (U)O rdered By: Adam Ferraro on 05-26-2025 Bilirubin Ql (U) Negative Negative [facility] Ketones Test strip Ql (U)Ord ered By: Adam Ferraro on 05-26-2025 Ketones Ql (U) Negative Negative [facility] Nitrite Test strip Ql (U)Ord ered By: Adam Ferraro on 05-26-2025 Nitrite Ql (U) Negative Negative [facility] Protein Test strip Ql (U)Ord ered By: Adam Ferraro on 05-26-2025 Protein Ql (U) Negative Negative [facility] Random urine creatinine you urement (mass/volume)Ordered By: Adam Ferraro on 05-26-2025 Creatinine Unsp time (U) [Mass/Vol] 25.50 mg/dL Low 39.00-259.0 0 [facility] Urine clarityOrdered By: Benoit Ferraro on 05-26-2025 Clarity (U) Clear Clear [facility] Urine color determinationOrd ered By: Adam Ferraro on 05-26-2025 Color (U) Straw Yellow [facility] Urine cultureOrdered By: Benoit Ferraro on 05-26-2025 Bacteria identified Cx Nom (U) Positive Abnormal [facility] Urine glucose detectionOrder ed By: Adma Ferraro on 05-26-2025 Glucose Ql (U) Normal mg/dl Normal [facility] Urine leukocyte esterase det ection by dipstickOrdered By: Adam Ferraro on 05-26-2025 Leukocyte esterase Test strip Ql (U) 500 /ul High Negative [facility] Urine pHOrdered By: Adam Ferraro on 05-26-2025 pH (U) 6.5 [pH] 5.0 - 8.0 [facility] Urine protein measurement (m ass/volume)Ordered By: Adam Ferraro on 05-26-2025 Protein (U) [Mass/Vol] mg/dL 0.0-12.0 [facility] Urine protein/creatinine mas s ratioOrdered By: Adam Ferraro on 05-26-2025 Protein/Creatinine (U) [Mass ratio] 172 mg/g CRE 0-200 [facility] Urine specific gravity measu rementOrdered By: Adam Ferraro on 05-26-2025 Specific gravity (U) [Rel density] 1.005 1.002-1.030 [facility] Urine urobilinogen measureme ntOrdered By: Adam Ferraro on 05-26-2025 Urobilinogen Ql (U) Normal mg/dl Normal [facility] Anion gap in Serum or Plasma Ordered By: Adam Ferraro on 05-24-2025 Anion gap [Moles/Vol] 10 mmol/L 5-15 [facility] BUN/creatinine ratioOrdered By: Adam Ferraro on 05-24-2025 Urea nitrogen/Creatinine [Mass ratio] 11.9 mg/mg 10-20 [facility] Bilirubin, totalOrdered By: Adam Ferraro on 05-24-2025 Bilirubin [Mass/Vol] 0.15 mg/dL 0.00-1.30 [facility] CBC-Complete Blood Cnt No Di ffon 05-24-2025 Erythrocyte distribution width (RBC) [Ratio] 12.7 % Normal 11.6-14.6 [facility] Comment on above: Order Comment: 111.2 Performed By: #### L 100.0500, L500.4050, L501.1400 #### [facility] [address] [place], [address] Hematocrit (Bld) [Volume fraction] 39.2 % Low 40-54 [facility] Comment on above: Order Comment: 111.2 Performed By: #### L 100.0500, L500.4050, L501.1400 #### [facility] [address] [place], [address] Hemoglobin (Bld) [Mass/Vol] 12.9 g/dL Low 13.0-16.5 [facility] Comment on above: Order Comment: 111.2 Performed By: #### L 100.0500, L500.4050, L501.1400 #### [facility] [address] [place], [address] MCH (RBC) [Entitic mass] 30.1 pg Normal 27.0-32.0 [facility] Comment on above: Order Comment: 111.2 Performed By: #### L 100.0500, L500.4050, L501.1400 #### [facility] [address] [place], [address] MCHC (RBC) [Mass/Vol] 32.9 g/dL Normal 32-36 [facility] Comment on above: Order Comment: 111.2 Performed By: #### L 100.0500, L500.4050, L501.1400 #### [facility] [address] [place], [address] MCV (RBC) [Entitic vol] 91.6 fL Normal 80-94 [facility] Comment on above: Order Comment: 111.2 Performed By: #### L 100.0500, L500.4050, L501.1400 #### [facility] [address] [place], [address] Platelet mean volume (Bld) [Entitic vol] 9.2 fL Normal 6.2-12.0 [facility] Comment on above: Order Comment: 111.2 Performed By: #### L 100.0500, L500.4050, L501.1400 #### [facility] [address] [place], [address] Platelets (Bld) [#/Vol] 247 10*3/uL Normal 150-450 [facility] Comment on above: Order Comment: 111.2 Performed By: #### L 100.0500, L500.4050, L501.1400 #### [facility] [address] [place], [address] RBC (Bld) [#/Vol] 4.28 10*6/uL Low 4.6-6.2 [facility] Comment on above: Order Comment: 111.2 Performed By: #### L 100.0500, L500.4050, L501.1400 #### [facility] [address] [place], [address] RDW SD 42.1 fl Normal 35.1-43.9 [facility] Comment on above: Order Comment: 111.2 Performed By: #### L 100.0500, L500.4050, L501.1400 #### [facility] [address] [place], [address] WBC (Bld) [#/Vol] 10.3 10*3/uL Normal 4.4-11.0 [facility] Comment on above: Order Comment: 111.2 Performed By: #### L 100.0500, L500.4050, L501.1400 #### [facility] [address] [place], [address] Carbon dioxide, total [Moles /volume] in Central venous bloodOrdered By: Adam Ferraro on 05-24-2025 CO2 [Moles/Vol] 21.9 mmol/L 21.0-32.0 [facility] Chloride assayOrdered By: Sabino Ferraro on 05-24-2025 Chloride [Moles/Vol] 107 mmol/L 98-108 [facility] Comprehensive Metabolic Prof ilon 05-24-2025 Albumin [Mass/Vol] 3.7 g/dL Normal 3.4-4.8 [facility] Comment on above: Order Comment: 111.2 Performed By: #### L 100.0500, L500.4050, L501.1400 #### [facility] [address] [place], [address] Albumin/Globulin [Mass ratio] 1.6 {ratio} Normal 0.9-2.4 [facility] Comment on above: Order Comment: 111.2 Performed By: #### L 100.0500, L500.4050, L501.1400 #### [facility] [address] [place], [address] ALK PHOS 80 U/L Normal 40-129 [facility] Comment on above: Order Comment: 111.2 Performed By: #### L 100.0500, L500.4050, L501.1400 #### [facility] [address] [place], [address] ALT [Catalytic activity/Vol] 10 U/L Normal <=46 [facility] Comment on above: Order Comment: 111.2 Performed By: #### L 100.0500, L500.4050, L501.1400 #### [facility] [address] [place], [address] AST [Catalytic activity/Vol] 12 U/L Normal <=37 [facility] Comment on above: Order Comment: 111.2 Performed By: #### L 100.0500, L500.4050, L501.1400 #### [facility] [address] [place], [address] Bilirubin [Mass/Vol] 0.15 mg/dL Normal 0.00-1.30 [facility] Comment on above: Order Comment: 111.2 Performed By: #### L 100.0500, L500.4050, L501.1400 #### [facility] [address] [place], [address] BUN/CRE 11.9 RATIO Normal 10-20 [facility] Comment on above: Order Comment: 111.2 Performed By: #### L 100.0500, L500.4050, L501.1400 #### [facility] [address] [place], [address] Calcium [Mass/Vol] 9.2 mg/dL Normal 7.6-11.0 [facility] Comment on above: Order Comment: 111.2 Performed By: #### L 100.0500, L500.4050, L501.1400 #### [facility] [address] [place], [address] Chloride [Moles/Vol] 107 mmol/L Normal 98-108 [facility] Comment on above: Order Comment: 111.2 Performed By: #### L 100.0500, L500.4050, L501.1400 #### [facility] [address] [place], [address] CO2 [Moles/Vol] 21.9 mmol/L Normal 21.0-32.0 [facility] Comment on above: Order Comment: 111.2 Performed By: #### L 100.0500, L500.4050, L501.1400 #### [facility] [address] [place], [address] Creatinine [Mass/Vol] 2.10 mg/dL High 0.70-1.20 [facility] Comment on above: Order Comment: 111.2 Performed By: #### L 100.0500, L500.4050, L501.1400 #### [facility] [address] [place], [address] GAP 10 Normal 5-15 [facility] Comment on above: Order Comment: 111.2 Performed By: #### L 100.0500, L500.4050, L501.1400 #### [facility] [address] [place], [address] GFR/1.73 sq M.predicted among non-blacks MDRD (S/P/Bld) [Vol rate/Area] 35 mL/min/{1.73_m2} Low >60 [facility] Comment on above: Order Comment: 111.2 Result Comment: mL/m in/1.73m2 CKD-EPI Creatinine Equation (2020) Performed By: #### L 100.0500, L500.4050, L501.1400 #### [facility] [address] [place], [address] Globulin (S) [Mass/Vol] 2.3 g/dL Normal 2.2-4.2 [facility] Comment on above: Order Comment: 111.2 Performed By: #### L 100.0500, L500.4050, L501.1400 #### [facility] [address] [place], [address] Glucose [Mass/Vol] 116 mg/dL High 70-99 [facility] Comment on above: Order Comment: 111.2 Performed By: #### L 100.0500, L500.4050, L501.1400 #### [facility] [address] [place], [address] Potassium [Moles/Vol] 4.4 mmol/L Normal 3.3-5.1 [facility] Comment on above: Order Comment: 111.2 Performed By: #### L 100.0500, L500.4050, L501.1400 #### [facility] [address] [place], [address] Sodium [Moles/Vol] 139 mmol/L Normal 133-145 [facility] Comment on above: Order Comment: 111.2 Performed By: #### L 100.0500, L500.4050, L501.1400 #### [facility] [address] [place], [address] T PROT 6.0 g/dL Normal 5.9-8.4 [facility] Comment on above: Order Comment: 111.2 Performed By: #### L 100.0500, L500.4050, L501.1400 #### [facility] [address] [place], [address] Urea nitrogen [Mass/Vol] 25 mg/dL High 4-19 [facility] Comment on above: Order Comment: 111.2 Performed By: #### L 100.0500, L500.4050, L501.1400 #### [facility] [address] [place], [address] Erythrocyte distribution wid th ratioOrdered By: Adam Ferraro on 05-24-2025 Erythrocyte distribution width (RBC) [Ratio] 12.7 % 11.6-14.6 [facility] Erythrocyte distribution wid th standard deviationOrdered By: Adam Ferraro on 05-24-2025 Erythrocyte distribution width (RBC) [Ratio] 42.1 fl 35.1-43.9 [facility] Glomerular filtration rate ( GFR) estimation/1.73 sq m using serum, plasma, or whole bOrdered By: Adam Ferraro on 05-24-2025 GFR/1.73 sq M.predicted among non-blacks MDRD (S/P/Bld) [Vol rate/Area] 35 mL/min/{1.73_m2} Low >60 [facility] Comment on above: mL/min/1.73m2 CKD-EP I Creatinine Equation (2020) Hematocrit Auto (Bld) [Volum e fraction]Ordered By: Adam Ferraro on 05-24-2025 Hematocrit (Bld) [Volume fraction] 39.2 % Low 40-54 [facility] Hemoglobin measurementOrdere d By: Adam Ferraro on 05-24-2025 Hemoglobin (Bld) [Mass/Vol] 12.9 g/dL Low 13.0-16.5 [facility] - Chemistry and C hemistry - challengeOrdered By: Adam Ferraro on 05-24-2025 AST [Catalytic activity/Vol] 12 U/L <38 [facility] MCV (mean corpuscular volume ) determinationOrdered By: Adam Ferraro on 05-24-2025 MCV (RBC) [Entitic vol] 91.6 fL 80-94 [facility] Mean corpuscular hemoglobin (MCH) determinationOrdered By: Adam Ferraro on 05-24-2025 MCH (RBC) [Entitic mass] 30.1 pg 27.0-32.0 [facility] Mean corpuscular hemoglobin concentration (MCHC) determinationOrdered By: Adam Ferraro on 05-24-2025 MCHC (RBC) [Mass/Vol] 32.9 g/dL 32-36 [facility] Mean platelet volume determi nationOrdered By: Adam Ferraro on 05-24-2025 Platelet mean volume (Bld) [Entitic vol] 9.2 fL 6.2-12.0 [facility] Platelet countOrdered By: Sabino Ferraro on 05-24-2025 Platelets (Bld) [#/Vol] 247 10*3/uL 150-450 [facility] Potassium measurement (mass/ volume)Ordered By: Adam Ferraro on 05-24-2025 Potassium (Unsp spec) [Mass/Vol] 4.4 mmol/L 3.3-5.1 [facility] RBC Auto (Bld) [#/Vol]Ordere d By: Adam Ferraro on 05-24-2025 RBC (Bld) [#/Vol] 4.28 10*6/uL Low 4.6-6.2 [facility] Serum creatinine measurement (mass/volume)Ordered By: Adam Ferraro on 05-24-2025 Creatinine [Mass/Vol] 2.10 mg/dL High 0.70-1.20 [facility] Serum globulin measurementOr dered By: Adam Ferraro on 05-24-2025 Globulin (S) [Mass/Vol] 2.3 g/dL 2.2-4.2 [facility] Serum glucose measurement (m ass/volume)Ordered By: Adam Ferraro on 05-24-2025 Glucose [Mass/Vol] 116 mg/dL High 70-99 [facility] Serum or plasma alanine sesay otransferase (ALT) measurementOrdered By: Adam Ferraro on 05-24-2025 ALT [Catalytic activity/Vol] 10 U/L <47 [facility] Serum or plasma albumin you urement (mass/volume)Ordered By: Adam Ferraro on 05-24-2025 Albumin [Mass/Vol] 3.7 g/dL 3.4-4.8 [facility] Serum or plasma albumin/glob ulin mass ratioOrdered By: Adam Ferraro on 05-24-2025 Albumin/Globulin [Mass ratio] 1.6 {ratio} 0.9-2.4 [facility] Serum or plasma alkaline hal sphatase measurementOrdered By: Adam Ferraro on 05-24-2025 ALP [Catalytic activity/Vol] 80 U/L 40-129 [facility] Serum or plasma calcium you urement (mass/volume)Ordered By: Adam Ferraro on 05-24-2025 Calcium [Mass/Vol] 9.2 mg/dL 7.6-11.0 [facility] Serum or plasma urea nitroge n measurement (mass/volume)Ordered By: Adam Ferraro on 05-24-2025 Urea nitrogen [Mass/Vol] 25 mg/dL High 4-19 [facility] Serum or plasma uric acid me asurement (mass/volume)Ordered By: Adam Ferraro on 05-24-2025 Urate [Mass/Vol] 6.3 mg/dL 3.5-7.2 [facility] Comment on above: The drugs N-Acetylcy steine and Metamizole may falsely depress this assay. Sodium levelOrdered By: Spike Ferraro on 05-24-2025 Sodium [Moles/Vol] 139 mmol/L 133-145 [facility] Total proteinOrdered By: Benoit Ferraro on 05-24-2025 Protein [Mass/Vol] 6.0 g/dL 5.9-8.4 [facility] White blood cell (WBC) count Ordered By: Adam Ferraro on 05-24-2025 WBC (Bld) [#/Vol] 10.3 10*3/uL 4.4-11.0 [facility] Lithiumon 05-02-2025 LI 0.53 mmol/L Low 0.60-1.20 [facility] Comment on above: Order Comment: 111-2 Performed By: #### L 500.4050, L501.2300, L501.9060, L100.0100 #### [facility] [address] [place], [place], [address] Serum or plasma uric acid me asurement (mass/volume)Ordered By: Alfredo Phipps on 04-26-2025 Urate [Mass/Vol] 6.3 mg/dL 3.5-7.2 [facility] Comment on above: The drugs N-Acetylcy steine and Metamizole may falsely depress this assay. Uric Acidon 04-26-2025 URIC 6.3 mg/dL Normal 3.5-7.2 [facility] Comment on above: Order Comment: 111-2 Result Comment: The drugs N-Acetylcysteine and Metamizole may falsely depress this assay. Performed By: #### L 501.1400 #### [facility] [address] [place], [place], [id number] Absolute lymphocyte countOrd ered By: Adam Ferraro on 04-24-2025 Lymphocytes Auto (Unsp spec) [#/Vol] 2.17 10*3/uL 0.83-4.51 [facility] Absolute neutrophil countOrd ered By: Adam Ferraro on 04-24-2025 Neutrophils (Bld) [#/Vol] 6.4 10*3/uL 2.0-7.7 [facility] Anion gap in Serum or Plasma Ordered By: Adam Ferraro on 04-24-2025 Anion gap [Moles/Vol] 12 mmol/L 5-15 [facility] Automated lymphocyte count a s percentage of total leukocytesOrdered By: Adam Ferraro on 04-24-2025 Lymphocytes/100 WBC Auto (Unsp spec) 21.0 % - [facility] BUN/creatinine ratioOrdered By: Adam Ferraro on 04-24-2025 Urea nitrogen/Creatinine [Mass ratio] 10.5 mg/mg 10-20 [facility] Basophil percentageOrdered B y: Adam Ferraro on 04-24-2025 Basophils/100 WBC (Bld) 1.1 % High 0-1 [facility] Bilirubin, totalOrdered By: Adam Ferraro on 04-24-2025 Bilirubin [Mass/Vol] 0.16 mg/dL 0.00-1.30 [facility] CBC W/Diff, Automatedon 04-14 Absolute Lymph 2.17 X10 3/uL Normal 0.83-4.51 [facility] Comment on above: Order Comment: 111.2 Performed By: #### L 501.2300, L500.4050, L501.9060, L100.0100 #### [facility] [address] [place], [address] Absolute Neut 6.4 X10 3/uL Normal 2.0-7.7 [facility] Comment on above: Order Comment: 111.2 Performed By: #### L 501.2300, L500.4050, L501.9060, L100.0100 #### [facility] [address] [place], [address] Basophils/100 WBC (Bld) 1.1 % High 0-1 [facility] Comment on above: Order Comment: 111.2 Performed By: #### L 501.2300, L500.4050, L501.9060, L100.0100 #### [facility] [address] [place], [address] Eosinophils/100 WBC (Bld) 5.1 % High 0-5 [facility] Comment on above: Order Comment: 111.2 Performed By: #### L 501.2300, L500.4050, L501.9060, L100.0100 #### [facility] [address] [place], [address] Erythrocyte distribution width (RBC) [Ratio] 13.1 % Normal 11.6-14.6 [facility] Comment on above: Order Comment: 111.2 Performed By: #### L 501.2300, L500.4050, L501.9060, L100.0100 #### [facility] [address] [place], [address] Hematocrit (Bld) [Volume fraction] 38.2 % Low 40-54 [facility] Comment on above: Order Comment: 111.2 Performed By: #### L 501.2300, L500.4050, L501.9060, L100.0100 #### [facility] [address] [place], [address] Hemoglobin (Bld) [Mass/Vol] 12.7 g/dL Low 13.0-16.5 [facility] Comment on above: Order Comment: 111.2 Performed By: #### L 501.2300, L500.4050, L501.9060, L100.0100 #### [facility] [address], [address] IG% 0.700 Normal 0.0-0.9 [facility] Comment on above: Order Comment: 111.2 Result Comment: IG% - Immature Granulocytes (promyelocytes, myelocytes and metamyelocytes) > 1% indicates that a LEFT SHIFT is Present. Performed By: #### L 501.2300, L500.4050, L501.9060, L100.0100 #### [facility] [address] [place], [address] Lymphocytes/100 WBC (Bld) 21.0 % Normal 19-41 [facility] Comment on above: Order Comment: 111.2 Performed By: #### L 501.2300, L500.4050, L501.9060, L100.0100 #### [facility] [address] [place], [address] MCH (RBC) [Entitic mass] 30.4 pg Normal 27.0-32.0 [facility] Comment on above: Order Comment: 111.2 Performed By: #### L 501.2300, L500.4050, L501.9060, L100.0100 #### [facility] [address] [place], [address] MCHC (RBC) [Mass/Vol] 33.2 g/dL Normal 32-36 [facility] Comment on above: Order Comment: 111.2 Performed By: #### L 501.2300, L500.4050, L501.9060, L100.0100 #### [facility] [address] [place], [address] MCV (RBC) [Entitic vol] 91.4 fL Normal 80-94 [facility] Comment on above: Order Comment: 111.2 Performed By: #### L 501.2300, L500.4050, L501.9060, L100.0100 #### [facility] [address] [place], [address] Monocytes/100 WBC (Bld) 9.9 % Normal 0-10 [facility] Comment on above: Order Comment: 111.2 Performed By: #### L 501.2300, L500.4050, L501.9060, L100.0100 #### [facility] [address] [place], [address] Neutrophils/100 WBC (Bld) 62.2 % Normal 47-70 [facility] Comment on above: Order Comment: 111.2 Performed By: #### L 501.2300, L500.4050, L501.9060, L100.0100 #### [facility] [address] [place], [address] Nucleated RBC (Bld) [#/Vol] 0 10*3/uL Normal 0-5 [facility] Comment on above: Order Comment: 111.2 Performed By: #### L 501.2300, L500.4050, L501.9060, L100.0100 #### [facility] [address] [place], [address] Platelet mean volume (Bld) [Entitic vol] 9.4 fL Normal 6.2-12.0 [facility] Comment on above: Order Comment: 111.2 Performed By: #### L 501.2300, L500.4050, L501.9060, L100.0100 #### [facility] [address] [place], [address] Platelets (Bld) [#/Vol] 245 10*3/uL Normal 150-450 [facility] Comment on above: Order Comment: 111.2 Performed By: #### L 501.2300, L500.4050, L501.9060, L100.0100 #### [facility] [address] [place], [address] RBC (Bld) [#/Vol] 4.18 10*6/uL Low 4.6-6.2 [facility] Comment on above: Order Comment: 111.2 Performed By: #### L 501.2300, L500.4050, L501.9060, L100.0100 #### [facility] [address] [place], [address] RDW SD 43.9 fl Normal 35.1-43.9 [facility] Comment on above: Order Comment: 111.2 Performed By: #### L 501.2300, L500.4050, L501.9060, L100.0100 #### [facility] [address] [place], [address] WBC (Bld) [#/Vol] 10.3 10*3/uL Normal 4.4-11.0 [facility] Comment on above: Order Comment: 111.2 Performed By: #### L 501.2300, L500.4050, L501.9060, L100.0100 #### [facility] [address] [place], [address] Carbon dioxide, total [Moles /volume] in Central venous bloodOrdered By: Adam Ferraro on 04-24-2025 CO2 [Moles/Vol] 21.9 mmol/L 21.0-32.0 [facility] Chloride assayOrdered By: Sabino Ferraro on 04-24-2025 Chloride [Moles/Vol] 107 mmol/L 98-108 [facility] Comprehensive Metabolic Prof ilon 04-24-2025 Albumin [Mass/Vol] 3.5 g/dL Normal 3.4-4.8 [facility] Comment on above: Order Comment: 111-2 Performed By: #### L 500.4050, L501.2300, L501.9060, L100.0100 #### [facility] [address] [place], [address] Albumin/Globulin [Mass ratio] 1.5 {ratio} Normal 0.9-2.4 [facility] Comment on above: Order Comment: 111-2 Performed By: #### L 500.4050, L501.2300, L501.9060, L100.0100 #### [facility] [address] [place], [address] ALK PHOS 76 U/L Normal 40-129 [facility] Comment on above: Order Comment: 111-2 Performed By: #### L 500.4050, L501.2300, L501.9060, L100.0100 #### [facility] [address] [place], [address] ALT [Catalytic activity/Vol] 11 U/L Normal <=46 [facility] Comment on above: Order Comment: 111-2 Performed By: #### L 500.4050, L501.2300, L501.9060, L100.0100 #### [facility] [address] [place], [address] AST [Catalytic activity/Vol] 16 U/L Normal <=37 [facility] Comment on above: Order Comment: 111-2 Performed By: #### L 500.4050, L501.2300, L501.9060, L100.0100 #### [facility] [address] [place], [address] Bilirubin [Mass/Vol] 0.16 mg/dL Normal 0.00-1.30 [facility] Comment on above: Order Comment: 111-2 Performed By: #### L 500.4050, L501.2300, L501.9060, L100.0100 #### [facility] [address] [place], [address] BUN/CRE 10.5 RATIO Normal 10-20 [facility] Comment on above: Order Comment: 111-2 Performed By: #### L 500.4050, L501.2300, L501.9060, L100.0100 #### [facility] [address] [place], [address] Calcium [Mass/Vol] 9.3 mg/dL Normal 7.6-11.0 [facility] Comment on above: Order Comment: 111-2 Performed By: #### L 500.4050, L501.2300, L501.9060, L100.0100 #### [facility] [address] [place], [address] Chloride [Moles/Vol] 107 mmol/L Normal 98-108 [facility] Comment on above: Order Comment: 111-2 Performed By: #### L 500.4050, L501.2300, L501.9060, L100.0100 #### [facility] [address] [place], [address] CO2 [Moles/Vol] 21.9 mmol/L Normal 21.0-32.0 [facility] Comment on above: Order Comment: 111-2 Performed By: #### L 500.4050, L501.2300, L501.9060, L100.0100 #### [facility] [address] [place], [address] Creatinine [Mass/Vol] 2.41 mg/dL High 0.70-1.20 [facility] Comment on above: Order Comment: 111-2 Performed By: #### L 500.4050, L501.2300, L501.9060, L100.0100 #### [facility] [address] [place], [address] GAP 12 Normal 5-15 [facility] Comment on above: Order Comment: 111-2 Performed By: #### L 500.4050, L501.2300, L501.9060, L100.0100 #### [facility] [address] [place], [address] GFR/1.73 sq M.predicted among non-blacks MDRD (S/P/Bld) [Vol rate/Area] 30 mL/min/{1.73_m2} Low >60 [facility] Comment on above: Order Comment: 111-2 Result Comment: mL/m in/1.73m2 CKD-EPI Creatinine Equation (2020) Performed By: #### L 500.4050, L501.2300, L501.9060, L100.0100 #### [facility] [address] [place], [address] Globulin (S) [Mass/Vol] 2.3 g/dL Normal 2.2-4.2 [facility] Comment on above: Order Comment: 111-2 Performed By: #### L 500.4050, L501.2300, L501.9060, L100.0100 #### [facility] [address] [place], [address] Glucose [Mass/Vol] 123 mg/dL High 70-99 [facility] Comment on above: Order Comment: 111-2 Performed By: #### L 500.4050, L501.2300, L501.9060, L100.0100 #### [facility] [address] [place], [address] Potassium [Moles/Vol] 4.6 mmol/L Normal 3.3-5.1 [facility] Comment on above: Order Comment: 111-2 Performed By: #### L 500.4050, L501.2300, L501.9060, L100.0100 #### [facility] [address] [place], [address] Sodium [Moles/Vol] 140 mmol/L Normal 133-145 [facility] Comment on above: Order Comment: 111-2 Performed By: #### L 500.4050, L501.2300, L501.9060, L100.0100 #### [facility] [address] [place], [address] T PROT 5.9 g/dL Normal 5.9-8.4 [facility] Comment on above: Order Comment: 111-2 Performed By: #### L 500.4050, L501.2300, L501.9060, L100.0100 #### [facility] [address] [place], [address] Urea nitrogen [Mass/Vol] 25 mg/dL High 4-19 [facility] Comment on above: Order Comment: 111-2 Performed By: #### L 500.4050, L501.2300, L501.9060, L100.0100 #### [facility] [address] [place], [address] Eosinophil percentageOrdered By: Adam Ferraro on 04-24-2025 Eosinophils/100 WBC (Bld) 5.1 % High 0-5 [facility] Erythrocyte distribution wid th ratioOrdered By: Adam Ferraro on 04-24-2025 Erythrocyte distribution width (RBC) [Ratio] 13.1 % 11.6-14.6 [facility] Erythrocyte distribution wid th standard deviationOrdered By: Adam Ferraro on 04-24-2025 Erythrocyte distribution width (RBC) [Ratio] 43.9 fl 35.1-43.9 [facility] Glomerular filtration rate ( GFR) estimation/1.73 sq m using serum, plasma, or whole bOrdered By: Adam Ferraro on 04-24-2025 GFR/1.73 sq M.predicted among non-blacks MDRD (S/P/Bld) [Vol rate/Area] 30 mL/min/{1.73_m2} Low >60 [facility] Comment on above: mL/min/1.73m2 CKD-EP I Creatinine Equation (2020) Hematocrit Auto (Bld) [Volum e fraction]Ordered By: Adam Ferraro on 04-24-2025 Hematocrit (Bld) [Volume fraction] 38.2 % Low 40-54 [facility] Hemoglobin measurementOrdere d By: Adam Ferraro on 04-24-2025 Hemoglobin (Bld) [Mass/Vol] 12.7 g/dL Low 13.0-16.5 [facility] Immature granulocytes/100 WB C Auto (Bld)Ordered By: Adam Ferraro on 04-24-2025 Immature granulocytes/100 WBC (Bld) 0.700 % 0.0-0.9 [facility] Comment on above: IG% - Immature Granu locytes (promyelocytes, myelocytes and metamyelocytes) > 1% indicates that a LEFT SHIFT is Present. Laboratory - Chemistry and C hemistry - challengeOrdered By: Adam Ferraro on 04-24-2025 AST [Catalytic activity/Vol] 16 U/L <38 [facility] Lithiumon 04-24-2025 LI 0.60 mmol/L Normal 0.60-1.20 [facility] Comment on above: Order Comment: 111-2 Performed By: #### L 500.4050, L501.2300, L501.9060, L100.0100 #### [facility] [address] [place], [address] MCV (mean corpuscular volume ) determinationOrdered By: Adam Ferraro on 04-24-2025 MCV (RBC) [Entitic vol] 91.4 fL 80-94 [facility] Mean corpuscular hemoglobin (MCH) determinationOrdered By: Adam Ferraro on 04-24-2025 MCH (RBC) [Entitic mass] 30.4 pg 27.0-32.0 [facility] Mean corpuscular hemoglobin concentration (MCHC) determinationOrdered By: Adam Ferraro on 04-24-2025 MCHC (RBC) [Mass/Vol] 33.2 g/dL 32-36 [facility] Mean platelet volume determi nationOrdered By: Adam Ferraro on 04-24-2025 Platelet mean volume (Bld) [Entitic vol] 9.4 fL 6.2-12.0 [facility] Monocyte percentageOrdered B y: Adam Ferraro on 04-24-2025 Monocytes/100 WBC (Bld) 9.9 % 0-10 [facility] Neutrophil percentageOrdered By: Adam Ferraro on 04-24-2025 Neutrophils/100 WBC (Bld) 62.2 % 47-70 [facility] Nucleated red blood cell per centageOrdered By: Adam Ferraro on 04-24-2025 Nucleated RBC/100 WBC (Bld) [Ratio] 0 % 0-5 [facility] Phosphoruson 04-24-2025 Phosphate [Mass/Vol] 4.8 mg/dL High 2.7-4.5 [facility] Comment on above: Order Comment: 111-2 Performed By: #### L 500.4050, L501.2300, L501.9060, L100.0100 #### [facility] [address] [place], [address] Platelet countOrdered By: Sabino Freraro on 04-24-2025 Platelets (Bld) [#/Vol] 245 10*3/uL 150-450 [facility] Potassium measurement (mass/ volume)Ordered By: Adam Ferraro on 04-24-2025 Potassium (Unsp spec) [Mass/Vol] 4.6 mmol/L 3.3-5.1 [facility] RBC Auto (Bld) [#/Vol]Ordere d By: Adam Ferraro on 04-24-2025 RBC (Bld) [#/Vol] 4.18 10*6/uL Low 4.6-6.2 [facility] Serum creatinine measurement (mass/volume)Ordered By: Adam Ferraro on 04-24-2025 Creatinine [Mass/Vol] 2.41 mg/dL High 0.70-1.20 [facility] Serum globulin measurementOr dered By: Adam Ferraro on 04-24-2025 Globulin (S) [Mass/Vol] 2.3 g/dL 2.2-4.2 [facility] Serum glucose measurement (m ass/volume)Ordered By: Adam Ferraro on 04-24-2025 Glucose [Mass/Vol] 123 mg/dL High 70-99 [facility] Serum or plasma alanine sesay otransferase (ALT) measurementOrdered By: Adam Ferraro on 04-24-2025 ALT [Catalytic activity/Vol] 11 U/L <47 [facility] Serum or plasma albumin you urement (mass/volume)Ordered By: Adam Ferraro on 04-24-2025 Albumin [Mass/Vol] 3.5 g/dL 3.4-4.8 [facility] Serum or plasma albumin/glob ulin mass ratioOrdered By: Adam Ferraro on 04-24-2025 Albumin/Globulin [Mass ratio] 1.5 {ratio} 0.9-2.4 [facility] Serum or plasma alkaline hal sphatase measurementOrdered By: Adam Ferraro on 04-24-2025 ALP [Catalytic activity/Vol] 76 U/L 40-129 [facility] Serum or plasma calcium you urement (mass/volume)Ordered By: Adam Ferraro on 04-24-2025 Calcium [Mass/Vol] 9.3 mg/dL 7.6-11.0 [facility] Serum or plasma urea nitroge n measurement (mass/volume)Ordered By: Adam Ferraro on 04-24-2025 Urea nitrogen [Mass/Vol] 25 mg/dL High 4-19 [facility] Sodium levelOrdered By: Spike Ferraro on 04-24-2025 Sodium [Moles/Vol] 140 mmol/L 133-145 [facility] Total proteinOrdered By: Benoit Ferraro on 04-24-2025 Protein [Mass/Vol] 5.9 g/dL 5.9-8.4 [facility] White blood cell (WBC) count Ordered By: Adam Ferraro on 04-24-2025 WBC (Bld) [#/Vol] 10.3 10*3/uL 4.4-11.0 [facility] Lithiumon 04-01-2025 LI 0.64 mmol/L Normal 0.60-1.20 [facility] Comment on above: Order Comment: 111-2 Performed By: #### L 500.4050, L501.2300, L501.9060, L100.0100 #### [facility] [address] [place], [address] Serum or plasma uric acid me asurement (mass/volume)Ordered By: Alfredo Phipps on 03-27-2025 Urate [Mass/Vol] 6.5 mg/dL 3.5-7.2 [facility] Comment on above: The drugs N-Acetylcy steine and Metamizole may falsely depress this assay. Uric Acidon 03-27-2025 URIC 6.5 mg/dL Normal 3.5-7.2 [facility] Comment on above: Order Comment: 111-2 [id number] Result Comment: The drugs N-Acetylcysteine and Metamizole may falsely depress this assay. Performed By: #### L 500.4050, L501.2300, L501.9060, L100.0100 #### [facility] [address] [place], [address] Microalb:Creat Ratio,Random URon 03-05-2025 Creatinine [Mass/Vol] 72.80 mg/dL Normal 39.00- 259.0 0 [facility] Comment on above: Performed By: #### L 500.4050, L501.2300, L501.9060, L100.0100 #### [facility] [address] [place], [address] MALB:CREAT UNABLE TO CALCULATE Normal [facility] Comment on above: Performed By: #### L 500.4050, L501.2300, L501.9060, L100.0100 #### [facility] [address] [place], [address] MICROALBUMIN,UR < 12.0 Normal NO RANGE EST. [facility] Comment on above: Performed By: #### L 500.4050, L501.2300, L501.9060, L100.0100 #### [facility] [address] [place], [address] Microalbumin/creat ratio urO rdered By: Adam Ferraro on 03-04-2025 Urine microalbumin/creatinine ratio measurement UNABLE TO CALCULATE mg/g CRE [facility] Random urine creatinine you urement (mass/volume)Ordered By: Adam Ferraro on 03-04-2025 Creatinine Unsp time (U) [Mass/Vol] 72.80 mg/dL 39.00-259.0 0 [facility] Urine albumin measurement wi th detection limit of 20 mg/L or less (mass/volume)Ordered By: Adam Ferraro on 03-04-2025 Albumin DL <= 20 mg/L (U) [Mass/Vol] < 12.0 mg/L NO RANGE EST. [facility] Absolute lymphocyte countOrd ered By: Alfredo Phipps on 02-27-2025 Lymphocytes Auto (Unsp spec) [#/Vol] 1.42 10*3/uL 0.83-4.51 [facility] Absolute neutrophil countOrd ered By: Alfredo Phipps on 02-27-2025 Neutrophils (Bld) [#/Vol] 17.7 10*3/uL High 2.0-7.7 [facility] Anion gap in Serum or Plasma Ordered By: Alfredo Phipps on 02-27-2025 Anion gap [Moles/Vol] 12 mmol/L 5-15 [facility] Automated lymphocyte count a s percentage of total leukocytesOrdered By: Alfredo Phipps on 02-27-2025 Lymphocytes/100 WBC Auto (Unsp spec) 6.9 % Low 19-41 [facility] BUN/creatinine ratioOrdered By: Alfredo Phipsp on 02-27-2025 Urea nitrogen/Creatinine [Mass ratio] 12.7 mg/mg 10-20 [facility] Basophil percentageOrdered B y: Alfredo Phipps on 02-27-2025 Basophils/100 WBC (Bld) 0.2 % 0-1 [facility] Bilirubin directOrdered By: Alfredo Phipps on 02-27-2025 Bilirubin.direct [Mass/Vol] 0.10 mg/dL 0.00-0.30 [facility] Bilirubin, Directon 02-28-20 25 Bilirubin.direct [Mass/Vol] 0.10 mg/dL Normal 0.00-0.30 [facility] Comment on above: Order Comment: 111. UNKNOWN [id number] Performed By: #### L [id number] #### [facility] [address] [place], [address] Bilirubin, totalOrdered By: Alfredo Phipps on 02-27-2025 Bilirubin [Mass/Vol] 0.19 mg/dL 0.00-1.30 [facility] CBC W/Diff, Automatedon 02-12 Absolute Lymph 1.42 X10 3/uL Normal 0.83-4.51 [facility] Comment on above: Order Comment: [id number] Performed By: #### L 500.4050, L501.2300, L501.9060, L100.0100 #### [facility] [address] [place], [address] Absolute Neut 17.7 X10 3/uL High 2.0-7.7 [facility] Comment on above: Order Comment: [id number] Performed By: #### L 500.4050, L501.2300, L501.9060, L100.0100 #### [facility] [address] [place], [address] Basophils/100 WBC (Bld) 0.2 % Normal 0-1 [facility] Comment on above: Order Comment: [id number] Performed By: #### L 500.4050, L501.2300, L501.9060, L100.0100 #### [facility] [address] [place], [address] Eosinophils/100 WBC (Bld) 0.0 % Normal 0-5 [facility] Comment on above: Order Comment: [id number] Performed By: #### L 500.4050, L501.2300, L501.9060, L100.0100 #### [facility] [address] [place], [address] Erythrocyte distribution width (RBC) [Ratio] 13.3 % Normal 11.6-14.6 [facility] Comment on above: Order Comment: 20250814 Performed By: #### L 500.4050, L501.2300, L501.9060, L100.0100 #### [facility] [address] [place], [address] Hematocrit (Bld) [Volume fraction] 39.0 % Low 40-54 [facility] Comment on above: Order Comment: [id number] Performed By: #### L 500.4050, L501.2300, L501.9060, L100.0100 #### [facility] [address] [place], [address] Hemoglobin (Bld) [Mass/Vol] 13.1 g/dL Normal 13.0-16.5 [facility] Comment on above: Order Comment: 20250814 Performed By: #### L 500.4050, L501.2300, L501.9060, L100.0100 #### [facility] [address] [place], [address] IG% 0.900 Normal 0.0-0.9 [facility] Comment on above: Order Comment: 20250814 Result Comment: IG% - Immature Granulocytes (promyelocytes, myelocytes and metamyelocytes) > 1% indicates that a LEFT SHIFT is Present. Performed By: #### L 500.4050, L501.2300, L501.9060, L100.0100 #### [facility] [address] [place], [address] Lymphocytes/100 WBC (Bld) 6.9 % Low 19-41 [facility] Comment on above: Order Comment: [id number] Performed By: #### L 500.4050, L501.2300, L501.9060, L100.0100 #### [facility] [address] [place], [address] MCH (RBC) [Entitic mass] 30.1 pg Normal 27.0-32.0 [facility] Comment on above: Order Comment: [id number] Performed By: #### L 500.4050, L501.2300, L501.9060, L100.0100 #### [facility] [address] [place], [address] MCHC (RBC) [Mass/Vol] 33.6 g/dL Normal 32-36 [facility] Comment on above: Order Comment: [id number] Performed By: #### L 500.4050, L501.2300, L501.9060, L100.0100 #### [facility] [address] [place], [address] MCV (RBC) [Entitic vol] 89.7 fL Normal 80-94 [facility] Comment on above: Order Comment: 20250814 Performed By: #### L 500.4050, L501.2300, L501.9060, L100.0100 #### [facility] [address] [place], [address] Monocytes/100 WBC (Bld) 6.4 % Normal 0-10 [facility] Comment on above: Order Comment: 20250814 Performed By: #### L 500.4050, L501.2300, L501.9060, L100.0100 #### [facility] [address] [place], [address] Neutrophils/100 WBC (Bld) 85.6 % High 47-70 [facility] Comment on above: Order Comment: 20250814 Performed By: #### L 500.4050, L501.2300, L501.9060, L100.0100 #### [facility] [address] [place], [address] Nucleated RBC (Bld) [#/Vol] 0 10*3/uL Normal 0-5 [facility] Comment on above: Order Comment: 20250814 Performed By: #### L 500.4050, L501.2300, L501.9060, L100.0100 #### [facility] [address] [place], [address] Platelet mean volume (Bld) [Entitic vol] 9.3 fL Normal 6.2-12.0 [facility] Comment on above: Order Comment: 20250814 Performed By: #### L 500.4050, L501.2300, L501.9060, L100.0100 #### [facility] [address] [place], [address] Platelets (Bld) [#/Vol] 274 10*3/uL Normal 150-450 [facility] Comment on above: Order Comment: 20250814 Performed By: #### L 500.4050, L501.2300, L501.9060, L100.0100 #### [facility] [address] [place], [address] RBC (Bld) [#/Vol] 4.35 10*6/uL Low 4.6-6.2 [facility] Comment on above: Order Comment: 20250814 Performed By: #### L 500.4050, L501.2300, L501.9060, L100.0100 #### [facility] [address] [place], [address] RDW SD 43.8 fl Normal 35.1-43.9 [facility] Comment on above: Order Comment: 20250814 Performed By: #### L 500.4050, L501.2300, L501.9060, L100.0100 #### [facility] [address] [place], [address] WBC (Bld) [#/Vol] 20.6 10*3/uL High 4.4-11.0 [facility] Comment on above: Order Comment: 20250814 Performed By: #### L 500.4050, L501.2300, L501.9060, L100.0100 #### [facility] [address] [place], [address] Carbon dioxide, total [Moles /volume] in Central venous bloodOrdered By: Alfredo Phipps on 02-27-2025 CO2 [Moles/Vol] 20.5 mmol/L Low 21.0-32.0 [facility] Chloride assayOrdered By: Chan Fiore on 02-27-2025 Chloride [Moles/Vol] 105 mmol/L 98-108 [facility] Comprehensive Metabolic Prof ilon 02-27-2025 Albumin [Mass/Vol] 3.9 g/dL Normal 3.4-4.8 [facility] Comment on above: Order Comment: 111.2 UNKNOWN 20250701 0000 Performed By: #### L 501.9060 #### [facility] [address] [place], [address] Albumin/Globulin [Mass ratio] 1.6 {ratio} Normal 0.9-2.4 [facility] Comment on above: Order Comment: 111.2 UNKNOWN 20250701 0000 Performed By: #### L 501.9060 #### [facility] [address] [place], [address] ALK PHOS 66 U/L Normal 40-129 [facility] Comment on above: Order Comment: 111.2 UNKNOWN 20250701 0000 Performed By: #### L [id number] #### [facility] [address] [place], [address] ALT [Catalytic activity/Vol] 13 U/L Normal <=46 [facility] Comment on above: Order Comment: 111.2 UNKNOWN 20250701 0000 Performed By: #### L [id number] #### [facility] [address] [place], [address] AST [Catalytic activity/Vol] 11 U/L Normal <=37 [facility] Comment on above: Order Comment: 111.2 UNKNOWN 20250701 0000 Performed By: #### L [id number] #### [facility] [address] [place], [address] Bilirubin [Mass/Vol] 0.19 mg/dL Normal 0.00-1.30 [facility] Comment on above: Order Comment: 111.2 UNKNOWN 20250701 0000 Performed By: #### L [id number] #### [facility] [address] [place], [address] BUN/CRE 12.7 RATIO Normal 10-20 [facility] Comment on above: Order Comment: 111.2 UNKNOWN 20250701 0000 Performed By: #### L [id number] #### [facility] [address] [place], [address] Calcium [Mass/Vol] 9.8 mg/dL Normal 7.6-11.0 [facility] Comment on above: Order Comment: 111.2 UNKNOWN 20250701 0000 Performed By: #### L [id number] #### [facility] [address] [place], [address] Chloride [Moles/Vol] 105 mmol/L Normal 98-108 [facility] Comment on above: Order Comment: 111.2 UNKNOWN [id number] 0000 Performed By: #### L [id number] #### [facility] [address] [place], [address] CO2 [Moles/Vol] 20.5 mmol/L Low 21.0-32.0 [facility] Comment on above: Order Comment: 111.2 UNKNOWN 20250701 0000 Performed By: #### L [id number] #### [facility] [address] [place], [address] Creatinine [Mass/Vol] 2.32 mg/dL High 0.70-1.20 [facility] Comment on above: Order Comment: 111.2 UNKNOWN 20250701 Performed By: #### L [id number] #### [facility] [address] [place], [address] GAP 12 Normal 5-15 [facility] Comment on above: Order Comment: 111.2 UNKNOWN 20250701 Performed By: #### L [id number] #### [facility] [address] [place], [address] GFR/1.73 sq M.predicted among non-blacks MDRD (S/P/Bld) [Vol rate/Area] 31 mL/min/{1.73_m2} Low >60 [facility] Comment on above: Order Comment: 111.2 UNKNOWN 20250701 Result Comment: mL/m in/1.73m2 CKD-EPI Creatinine Equation (2020) Performed By: #### L [id number] #### [facility] [address] [place], [address] Globulin (S) [Mass/Vol] 2.4 g/dL Normal 2.2-4.2 [facility] Comment on above: Order Comment: 111.2 UNKNOWN 20250701 Performed By: #### L [id number] #### [facility] [address] [place], [address] Glucose [Mass/Vol] 134 mg/dL High 70-99 [facility] Comment on above: Order Comment: 111.2 UNKNOWN 20250701 0000 Performed By: #### L 501.9060 #### [facility] [address] [place], [address] Potassium [Moles/Vol] 4.4 mmol/L Normal 3.3-5.1 [facility] Comment on above: Order Comment: 111.2 UNKNOWN 20250701 0000 Performed By: #### L [id number] #### [facility] [address] [place], [address] Sodium [Moles/Vol] 138 mmol/L Normal 133-145 [facility] Comment on above: Order Comment: 111.2 UNKNOWN 20250701 0000 Performed By: #### L [id number] #### [facility] [address] [place], [address] T PROT 6.2 g/dL Normal 5.9-8.4 [facility] Comment on above: Order Comment: 111.2 UNKNOWN 20250701 0000 Performed By: #### L [id number] #### [facility] [address] [place], [address] Urea nitrogen [Mass/Vol] 29 mg/dL High 4-19 [facility] Comment on above: Order Comment: 111.2 UNKNOWN 20250701 0000 Performed By: #### L [id number] #### [facility] [address] [place], [address] Eosinophil percentageOrdered By: Alfredo Phipps on 02-27-2025 Eosinophils/100 WBC (Bld) 0.0 % 0-5 [facility] Erythrocyte distribution wid th (RBC) [Ratio]Ordered By: Alfredo Phipps on 02-27-2025 Erythrocyte distribution width (RBC) [Entitic vol] 43.8 fL 35.1-43.9 [facility] Erythrocyte distribution wid th ratioOrdered By: Alfredo Phipps on 02-27-2025 Erythrocyte distribution width (RBC) [Ratio] 13.3 % 11.6-14.6 [facility] Erythrocyte distribution wid th standard deviationOrdered By: Alfredo Phipps on 02-27-2025 Erythrocyte distribution width (RBC) [Ratio] 43.8 fl 35.1-43.9 [facility] GFR/1.73 sq M.predicted miles g non-blacks MDRD (S/P/Bld) [Vol rate/Area]Ordered By: Alfredo Phipps on 02-27-2025 Estimated GFR (MDRD) Non-Af Amer 31 Low >60 [facility] Comment on above: mL/min/1.73m2 CKD-EP I Creatinine Equation (2020) Glomerular filtration rate ( GFR) estimation/1.73 sq m using serum, plasma, or whole bOrdered By: Alfredo Phipps on 02-27-2025 GFR/1.73 sq M.predicted among non-blacks MDRD (S/P/Bld) [Vol rate/Area] 31 mL/min/{1.73_m2} Low >60 [facility] Comment on above: mL/min/1.73m2 CKD-EP I Creatinine Equation (2020) Hematocrit Auto (Bld) [Volum e fraction]Ordered By: Alfredo Phipps on 02-27-2025 Hematocrit (Bld) [Volume fraction] 39.0 % Low 40-54 [facility] Hemoglobin measurementOrdere d By: Alfredo Phipps on 02-27-2025 Hemoglobin (Bld) [Mass/Vol] 13.1 g/dL 13.0-16.5 [facility] Immature granulocytes/100 WB C Auto (Bld)Ordered By: Alfredo Phipps on 02-27-2025 Immature granulocytes/100 WBC (Bld) 0.900 % 0.0-0.9 [facility] Comment on above: IG% - Immature Granu locytes (promyelocytes, myelocytes and metamyelocytes) > 1% indicates that a LEFT SHIFT is Present. Laboratory - Chemistry and C hemistry - challengeOrdered By: Alfredo Phipps on 02-27-2025 AST [Catalytic activity/Vol] 11 U/L <38 [facility] Lithiumon 02-27-2025 LI 0.60 mmol/L Normal 0.60-1.20 [facility] Comment on above: Order Comment: 111.2 UNKNOWN [id number] 0000 Performed By: #### L [id number] #### [facility] [place], [address] [place] levelOrdered By: Jennifer Phipps on 02-27-2025 [place] Level 0.60 mmol/L 0.60-1.20 [facility] Lymphocytes Auto (Unsp spec) [#/Vol]Ordered By: Alfredo Phipps on 02-27-2025 Lymphocytes (Bld) [#/Vol] 1.42 10*3/uL 0.83-4.5 1 [facility] Lymphocytes/100 WBC Auto (Un sp spec)Ordered By: Alfredo Phipps on 02-27-2025 Lymphocytes/100 WBC (Bld) 6.9 % Low 19-41 [facility] MCV (mean corpuscular volume ) determinationOrdered By: Alfredo Phipps on 02-27-2025 MCV (RBC) [Entitic vol] 89.7 fL 80-94 [facility] Mean corpuscular hemoglobin (MCH) determinationOrdered By: Alfredo Phipps on 02-27-2025 MCH (RBC) [Entitic mass] 30.1 pg 27.0-32.0 [facility] Mean corpuscular hemoglobin concentration (MCHC) determinationOrdered By: Alfredo Phipps on 02-27-2025 MCHC (RBC) [Mass/Vol] 33.6 g/dL 32-36 [facility] Mean platelet volume determi nationOrdered By: Alfredo Phipps on 02-27-2025 Platelet mean volume (Bld) [Entitic vol] 9.3 fL 6.2-12.0 [facility] Monocyte percentageOrdered B y: Alfredo Phipps on 02-27-2025 Monocytes/100 WBC (Bld) 6.4 % 0-10 [facility] Neutrophil percentageOrdered By: Alfredo Phipps on 02-27-2025 Neutrophils/100 WBC (Bld) 85.6 % High 47-70 [facility] Nucleated red blood cell per centageOrdered By: Alfredo Phipps on 02-27-2025 Nucleated RBC/100 WBC (Bld) [Ratio] 0 % 0-5 [facility] Platelet countOrdered By: Chan Fiore on 02-27-2025 Platelets (Bld) [#/Vol] 274 10*3/uL 150-450 [facility] Potassium (Unsp spec) [Mass/ Vol]Ordered By: Alfredo Phipps on 02-27-2025 Potassium [Moles/Vol] 4.4 mmol/L 3.3-5.1 [facility] Potassium measurement (mass/ volume)Ordered By: Alfredo Phipps on 02-27-2025 Potassium (Unsp spec) [Mass/Vol] 4.4 mmol/L 3.3-5.1 [facility] RBC Auto (Bld) [#/Vol]Ordere d By: Alfredo Phipps on 02-27-2025 RBC (Bld) [#/Vol] 4.35 10*6/uL Low 4.6-6.2 [facility] Serum creatinine measurement (mass/volume)Ordered By: Alfredo Phipps on 02-27-2025 Creatinine [Mass/Vol] 2.32 mg/dL High 0.70-1.20 [facility] Serum globulin measurementOr dered By: Alfredo Phipps on 02-27-2025 Globulin (S) [Mass/Vol] 2.4 g/dL 2.2-4.2 [facility] Serum glucose measurement (m ass/volume)Ordered By: Alfredo Phipps on 02-27-2025 Glucose [Mass/Vol] 134 mg/dL High 70-99 [facility] Serum or plasma alanine sesay otransferase (ALT) measurementOrdered By: Alfredo Phipps on 02-27-2025 ALT [Catalytic activity/Vol] 13 U/L <47 [facility] Serum or plasma albumin you urement (mass/volume)Ordered By: Alfredo Phipps on 02-27-2025 Albumin [Mass/Vol] 3.9 g/dL 3.4-4.8 [facility] Serum or plasma albumin/glob ulin mass ratioOrdered By: Alfredo Phipps on 02-27-2025 Albumin/Globulin [Mass ratio] 1.6 {ratio} 0.9-2.4 [facility] Serum or plasma alkaline hal sphatase measurementOrdered By: Alfredo Phipps on 02-27-2025 ALP [Catalytic activity/Vol] 66 U/L 40-129 [facility] Serum or plasma calcium you urement (mass/volume)Ordered By: Alfredo Phipps on 02-27-2025 Calcium [Mass/Vol] 9.8 mg/dL 7.6-11.0 [facility] Serum or plasma urea nitroge n measurement (mass/volume)Ordered By: Alfredo Phipps on 02-27-2025 Urea nitrogen [Mass/Vol] 29 mg/dL High 4-19 [facility] Sodium levelOrdered By: Raffi Phipps on 02-27-2025 Sodium [Moles/Vol] 138 mmol/L 133-145 [facility] Total proteinOrdered By: Jennifer Phipps on 02-27-2025 Protein [Mass/Vol] 6.2 g/dL 5.9-8.4 [facility] White blood cell (WBC) count Ordered By: Alfredo Phipps on 02-27-2025 WBC (Bld) [#/Vol] 20.6 10*3/uL High 4.4-11.0 [facility] Serum or plasma uric acid me asurement (mass/volume)Ordered By: Adam Ferraro on 02-25-2025 Urate [Mass/Vol] 6.3 mg/dL 3.5-7.2 [facility] Comment on above: The drugs N-Acetylcy steine and Metamizole may falsely depress this assay. Uric Acidon 02-25-2025 URIC 6.3 mg/dL Normal 3.5-7.2 [facility] Comment on above: Order Comment: 111-2 Result Comment: The drugs N-Acetylcysteine and Metamizole may falsely depress this assay. Performed By: #### L 500.4050, L501.2300, L501.9060, L100.0100 #### [facility] [address] [place], [place], [id number] Calculated very low density lipoprotein (VLDL) cholesterol measurementOrdered By: Alfredo Phipps on 02-11-2025 Calculated very low density lipoprotein (VLDL) cholesterol measurement 43 mg/dL High 5-40 [facility] VLDL Cholesterol 43 mg/dL High 5-40 [facility] LDL calc ser/plasOrdered By: Alfredo Phipps on 02-11-2025 Cholesterol in LDL [Mass/Vol] 67 mg/dL [facility] Comment on above: Ajqguleznu=844-103 m g/dL & Higher Xysf=902 mg/dL or greater LDL Cholesterol, Calculated 67 mg/dL [facility] Comment on above: Mwyuewrjgb=965-936 m g/dL & Higher Xfli=063 mg/dL or greater Lipid Profileon 02-11-2025 CHOL:HDL 4.53 Normal [facility] Comment on above: Order Comment: 111.2 UNKNOWN 20250701 Performed By: #### L [id number] #### [facility] [address] [place], [place], [id number] (317) Cholesterol [Mass/Vol] 141 mg/dL Normal <=200 [facility] Comment on above: Order Comment: 111.2 UNKNOWN 20250701 Result Comment: Chol esterol level, Desirable <200 mg/dL Borderline high cholesterol 200-239 mg/dL High cholesterol >=240 mg/dL Recommendations of the NCEP Adult Treatment Panel for the following risk-cutoff thresholds for the [place] population. Performed By: #### L [id number] #### [facility] [address] [place], [place], [id number] (772) Cholesterol in HDL [Mass/Vol] 31 mg/dL Low [facility] Comment on above: Order Comment: 111.2 UNKNOWN 20250701 Result Comment: Fabienne onal Cholesterol Education Program (NCEP) guidelines: <40 mg/dL: Low HDL-cholesterol (major risk factor for CHD) >= 60 mg/dL: High HDL-cholesterol (negative risk factor for CHD) HDL-cholesterol is affected by a number of factors, e.g. smoking, exercise, hormones, sex and age. Performed By: #### L [id number] #### [facility] [address] [place], [place], [id number] ([phone]) Cholesterol in LDL [Mass/Vol] 67 mg/dL Normal [facility] Comment on above: Order Comment: 111.2 UNKNOWN 20250701 Result Comment: Bord oiwshf=046-889 mg/dL Higher Gcxo=782 mg/dL or greater Performed By: #### L [id number] #### [facility] [address] [place], [place], [id number] Cholesterol in VLDL [Mass/Vol] 43 mg/dL High 5-40 [facility] Comment on above: Order Comment: 111.2 UNKNOWN [id number] 0000 Performed By: #### L [id number] #### [facility] [address] [place], [place], [id number] Triglyceride [Mass/Vol] 215 mg/dL High [facility] Comment on above: Order Comment: 111.2 UNKNOWN [id number] Result Comment: The drugs N-Acetylcysteine and Metamizole may falsely depress this assay. Normal range: <150 mg/dL Borderline High: 150-199 mg/dL High: 200-499 mg/dL Very High: >500 mg/dL Performed By: #### L [id number] #### [facility] [address] [place], [place], [address] Screening total cholesterol/ high density lipoprotein (HDL) cholesterol ratioOrdered By: Alfredo Phipps on 02-11-2025 Cholesterol.total/Choleste rol in HDL [Mass ratio] 4.53 {ratio} [facility] Serum or plasma cholesterol in HDL measurement (mass/volume)Ordered By: Alfredo Phipps on 02-11-2025 Cholesterol in HDL [Mass/Vol] 31 mg/dL Low >40 [facility] Comment on above: National Cholesterol Education Program (NCEP) guidelines:<40 mg/dL: Low HDL-cholesterol (major risk factor for CHD)>= 60 mg/dL: High HDL-cholesterol (negative risk factor for CHD)HDL-cholesterol is affected by a number of factors, e.g. smoking, exercise, hormones, sex and age. Serum or plasma cholesterol measurement (mass/volume)Ordered By: Alfredo Phipps on 02-11-2025 Cholesterol [Mass/Vol] 141 mg/dL <201 [facility] Comment on above: Cholesterol level, D esirable <200 mg/dLBorderline high cholesterol 200-239 mg/dLHigh cholesterol >=240 mg/dLRecommendations of the NCEP Adult Treatment Panel for the following risk-cutoff thresholds for the [place] population. Triglycerides measurementOrd ered By: Alfredo Phipps on 02-11-2025 Triglyceride [Mass/Vol] 215 mg/dL High <199 [facility] Comment on above: The drugs N-Acetylcy steine and Metamizole may falsely depress this assay. Normal range: <150 mg/dLBorderline High: 150-199 mg/dLHigh: 200-499 mg/dLVery High: >500 mg/dL Hemoglobin A1con 02-06-2025 HbA1c (Bld) [Mass fraction] 5.8 % Normal <=5.6 [facility] Comment on above: Order Comment: 111.2 UNKNOWN [id number] 0000 Performed By: #### L [id number] #### [facility] [address] [place], [place], [address] Hemoglobin A1c percentageOrd ered By: Alfredo Phipps on 02-06-2025 HbA1c (Bld) [Mass fraction] 5.8 % >5.7 [facility] Lithiumon 01-30-2025 LI 0.71 mmol/L Normal 0.60-1.20 [facility] Comment on above: Order Comment: 111-2 Performed By: #### L [id number], L501.2300, L501.9060, L100.0100 #### [facility] [address] [place], [place], [address] [place] levelOrdered By: Benoit Ferraro on 01-30-2025 [place] Level 0.71 mmol/L 0.60-1.20 [facility] Serum or plasma uric acid me asurement (mass/volume)Ordered By: Adam Ferraro on 01-25-2025 Urate [Mass/Vol] 6.2 mg/dL 3.5-7.2 [facility] Comment on above: The drugs N-Acetylcy steine and Metamizole may falsely depress this assay. Uric Acidon 01-25-2025 URIC 6.2 mg/dL Normal 3.5-7.2 [facility] Comment on above: Order Comment: 111-2 Result Comment: The drugs N-Acetylcysteine and Metamizole may falsely depress this assay. Performed By: #### L [id number], L501.2300, L501.9060, L100.0100 #### [facility] [address] [place], [address] Microalb:Creat Ratio,Random URon 01-03-2025 Creatinine [Mass/Vol] 104.00 mg/dL Normal NO RAN GE EST. [facility] Comment on above: Performed By: #### L [id number] #### [facility] [address] [place], [address] MALB:CRE TNP Normal <30 mg/g CRE [facility] Comment on above: Performed By: #### L [id number] #### [facility] [address] [place], [address] MICROALBUMIN,UR < 5.0 Normal NO RANGE EST. [facility] Comment on above: Performed By: #### L [id number] #### [facility] [address] [place], [address] Random urine microalbumin me asurementOrdered By: Adam Ferraro on 01-03-2025 Urine Random Microalbumin < 5.0 mg/L NO RANGE EST. [facility] Urine albumin/creatinine rat io for detection of microalbuminuriaOrdered By: Adam Ferraro on 01-03-2025 Urine Microalbumin/Creatinine Ratio TNP [facility] Comment on above: Test not performed Urine creatinine measurement (mass/volume)Ordered By: Adam Ferraro on 01-03-2025 Creatinine (U) [Mass/Vol] 104.00 mg/dL NO RANGE EST. [facility] Absolute lymphocyte countOrd ered By: Adam Ferraro on 01-02-2025 Lymphocytes Auto (Unsp spec) [#/Vol] 2.41 10*3/uL 0.83-4.51 [facility] Absolute neutrophil countOrd ered By: Adam Ferraro on 01-02-2025 Neutrophils (Bld) [#/Vol] 5.6 10*3/uL 2.0-7.7 [facility] Albumin to globulin ratioOrd ered By: Adam Muñozmele on 01-02-2025 Albumin/Globulin [Mass ratio] 1.0 {ratio} 0.9-2.4 [facility] Automated lymphocyte count a s percentage of total leukocytesOrdered By: Adam Ferraro on 01-02-2025 Lymphocytes/100 WBC Auto (Unsp spec) 25.1 % [facility] Basophil percentageOrdered B y: Adam Ferraro on 01-02-2025 Basophils/100 WBC (Bld) 1.1 % High 0-1 [facility] Bilirubin, totalOrdered By: Adam Ferraro on 01-02-2025 Bilirubin [Mass/Vol] 0.30 mg/dL 0.20-1.00 [facility] Comment on above: For patients on eltr ombopag therapy, use of Dimension [place] TBIL is not recommended. Blood urea nitrogen (BUN)/cr eatinine ratioOrdered By: Adam Ferraro on 01-02-2025 Urea nitrogen/Creatinine [Mass ratio] 12.6 mg/mg 10- [facility] CBC W/Diff, Automatedon 12-15 Absolute Lymph 2.41 X10 3/uL Normal 0.83-4.51 [facility] Comment on above: Order Comment: 111.2 UNKNOWN 20250701 0000 Performed By: #### L [id number] #### [facility] [address] [place], [address] Absolute Neut 5.6 X10 3/uL Normal 2.0-7.7 [facility] Comment on above: Order Comment: 111.2 UNKNOWN [id number] 0000 Performed By: #### L [id number] #### [facility] [address] [place], [address] Basophils/100 WBC (Bld) 1.1 % High 0-1 [facility] Comment on above: Order Comment: 111.2 UNKNOWN [id number] 0000 Performed By: #### L [id number] #### [facility] [address] [place], [address] Eosinophils/100 WBC (Bld) 5.3 % High 0-5 [facility] Comment on above: Order Comment: 111.2 UNKNOWN 20250701 0000 Performed By: #### L [id number] #### [facility] [address] [place], [address] Erythrocyte distribution width (RBC) [Ratio] 12.9 % Normal 11.6-14.6 [facility] Comment on above: Order Comment: 111.2 UNKNOWN 20250701 0000 Performed By: #### L [id number] #### [facility] [address] [place], [address] Hematocrit (Bld) [Volume fraction] 40.5 % Normal 40-54 [facility] Comment on above: Order Comment: 111.2 UNKNOWN 20250701 0000 Performed By: #### L [id number] #### [facility] [address] [place], [address] Hemoglobin (Bld) [Mass/Vol] 13.4 g/dL Normal 13.0-16.5 [facility] Comment on above: Order Comment: 111.2 UNKNOWN 20250701 0000 Performed By: #### L [id number] #### [facility] [address] [place], [address] IG% 0.500 Normal 0.0-0.9 [facility] Comment on above: Order Comment: 111.2 UNKNOWN 20250701 0000 Result Comment: IG% - Immature Granulocytes (promyelocytes, myelocytes and metamyelocytes) > 1% indicates that a LEFT SHIFT is Present. Performed By: #### L [id number] #### [facility] [address] [place], [address] Lymphocytes/100 WBC (Bld) 25.1 % Normal 19-41 [facility] Comment on above: Order Comment: 111.2 UNKNOWN 20250701 0000 Performed By: #### L [id number] #### [facility] [address] [place], [address] MCH (RBC) [Entitic mass] 30.0 pg Normal 27.0-32.0 [facility] Comment on above: Order Comment: 111.2 UNKNOWN [id number] 0000 Performed By: #### L [id number] #### [facility] [address] [place], [address] MCHC (RBC) [Mass/Vol] 33.1 g/dL Normal 32-36 [facility] Comment on above: Order Comment: 111.2 UNKNOWN [id number] 0000 Performed By: #### L [id number] #### [facility] [address] [place], [address] MCV (RBC) [Entitic vol] 90.8 fL Normal 80-94 [facility] Comment on above: Order Comment: 111.2 UNKNOWN 20250701 0000 Performed By: #### L [id number] #### [facility] [address] [place], [address] Monocytes/100 WBC (Bld) 9.4 % Normal 0-10 [facility] Comment on above: Order Comment: 111.2 UNKNOWN 20250701 0000 Performed By: #### L [id number] #### [facility] [address] [place], [address] Neutrophils/100 WBC (Bld) 58.6 % Normal 47-70 [facility] Comment on above: Order Comment: 111.2 UNKNOWN 20250701 0000 Performed By: #### L [id number] #### [facility] [address] [place], [address] Nucleated RBC (Bld) [#/Vol] 0 10*3/uL Normal 0-5 [facility] Comment on above: Order Comment: 111.2 UNKNOWN 20250701 0000 Performed By: #### L [id number] #### [facility] [address] [place], [address] Platelet mean volume (Bld) [Entitic vol] 9.5 fL Normal 6.2-12.0 [facility] Comment on above: Order Comment: 111.2 UNKNOWN 20250701 0000 Performed By: #### L [id number] #### [facility] [address] [place], [address] Platelets (Bld) [#/Vol] 247 10*3/uL Normal 150-450 [facility] Comment on above: Order Comment: 111.2 UNKNOWN 20250701 0000 Performed By: #### L [id number] #### [facility] [address] [place], [address] RBC (Bld) [#/Vol] 4.46 10*6/uL Low 4.6-6.2 [facility] Comment on above: Order Comment: 111.2 UNKNOWN 20250701 0000 Performed By: #### L [id number] #### [facility] [address] [place], [address] RDW SD 41.9 fl Normal 35.1-43.9 [facility] Comment on above: Order Comment: 111.2 UNKNOWN 20250701 0000 Performed By: #### L [id number] #### [facility] [address] [place], [address] WBC (Bld) [#/Vol] 9.6 10*3/uL Normal 4.4-11.0 [facility] Comment on above: Order Comment: 111.2 UNKNOWN 20250701 0000 Performed By: #### L [id number] #### [facility] [address] [place], [address] Carbon dioxide measurementOr dered By: Adam Ferraro on 01-02-2025 CO2 [Moles/Vol] 25.0 mmol/L 21.0-32.0 [facility] Chloride measurementOrdered By: Adam Ferraro on 01-02-2025 Chloride [Moles/Vol] 109 mmol/L High 98-107 [facility] Comprehensive Metabolic Prof ilon 01-02-2025 Albumin [Mass/Vol] 3.1 g/dL Low 3.2-5.0 [facility] Comment on above: Order Comment: 111.2 UNKNOWN [id number] 0000 Performed By: #### L [id number] #### [facility] [address] [place], [address] Albumin/Globulin [Mass ratio] 1.0 {ratio} Normal 0.9-2.4 [facility] Comment on above: Order Comment: 111.2 UNKNOWN 20250701 0000 Performed By: #### L [id number] #### [facility] [address] [place], [address] ALK P 81 U/L Normal 45-117 [facility] Comment on above: Order Comment: 111.2 UNKNOWN 20250701 0000 Performed By: #### L [id number] #### [facility] [address] [place], [address] ALT [Catalytic activity/Vol] 17 U/L Normal 16-61 [facility] Comment on above: Order Comment: 111.2 UNKNOWN 20250701 0000 Performed By: #### L [id number] #### [facility] [address] [place], [address] AST [Catalytic activity/Vol] 12 U/L Low 15-37 [facility] Comment on above: Order Comment: 111.2 UNKNOWN 20250701 0000 Performed By: #### L [id number] #### [facility] [address] [place], [address] Bilirubin [Mass/Vol] 0.30 mg/dL Normal 0.20-1.00 [facility] Comment on above: Order Comment: 111.2 UNKNOWN 20250701 0000 Result Comment: For patients on eltrombopag therapy, use of Dimension [place] TBIL is not recommended. Performed By: #### L [id number] #### [facility] [address] [place], [address] BUN/CRE 12.6 RATIO Normal 10-20 [facility] Comment on above: Order Comment: 111.2 UNKNOWN 20250701 0000 Performed By: #### L 072.3105 #### [facility] [address] [place], [address] CA,Total 9.4 mg/dL Normal 8.5-10.1 [facility] Comment on above: Order Comment: 111.2 UNKNOWN 20250701 0000 Performed By: #### L 711.2412 #### [facility] [address] [place], [address] Chloride [Moles/Vol] 109 mmol/L High 98-107 [facility] Comment on above: Order Comment: 111.2 UNKNOWN 20250701 0000 Performed By: #### L 655.1403 #### [facility] [address] [place], [address] CO2 [Moles/Vol] 25.0 mmol/L Normal 21.0-32.0 [facility] Comment on above: Order Comment: 111.2 UNKNOWN 20250701 0000 Performed By: #### L 554.0755 #### [facility] [address] [place], [address] Creatinine [Mass/Vol] 2.14 mg/dL High 0.70-1.30 [facility] Comment on above: Order Comment: 111.2 UNKNOWN 20250701 0000 Result Comment: The validity of the calculated GFR GFRAA in patients over 70 years has not been determined. Clinical correlation is essential. Performed By: #### L [id number] #### [facility] [address] [place], [address] EST GFR - AA 41 mL/min Low >60 [facility] Comment on above: Order Comment: 111.2 UNKNOWN 20250701 0000 Result Comment: Afri can [place] GFR Calc Performed By: #### L [id number] #### [facility] [address] [place], [address] GAP 7 Normal 5-15 [facility] Comment on above: Order Comment: 111.2 UNKNOWN 20250701 0000 Performed By: #### L [id number] #### [facility] [address] [place], [address] GFR/1.73 sq M.predicted among non-blacks MDRD (S/P/Bld) [Vol rate/Area] 34 mL/min/{1.73_m2} Low >60 [facility] Comment on above: Order Comment: 111.2 UNKNOWN 20250701 0000 Result Comment: Non- GFR Calc Performed By: #### L [id number] #### [facility] [address] [place], [address] Globulin (S) [Mass/Vol] 3.1 g/dL Normal 2.2-4.2 [facility] Comment on above: Order Comment: 111.2 UNKNOWN 20250701 0000 Performed By: #### L [id number] #### [facility] [address] [place], [address] Glucose [Mass/Vol] 115 mg/dL High 74-106 [facility] Comment on above: Order Comment: 111.2 UNKNOWN 20250701 0000 Result Comment: Fast ing Glucose result from 100 to 125 mg/dL suggests IMPAIRED HOMEOSTASIS per A.D.A. criteria. Performed By: #### L [id number] #### [facility] [address] [place], [address] Potassium [Moles/Vol] 4.1 mmol/L Normal 3.5-5.1 [facility] Comment on above: Order Comment: 111.2 UNKNOWN 20250701 0000 Performed By: #### L [id number] #### [facility] [address] [place], [address] Sodium [Moles/Vol] 141 mmol/L Normal 136-145 [facility] Comment on above: Order Comment: 111.2 UNKNOWN 20250701 0000 Performed By: #### L [id number] #### [facility] [address] [place], [place], [address] T PROT 6.2 g/dL Low 6.4-8.2 [facility] Comment on above: Order Comment: 111.2 UNKNOWN 20250701 0000 Performed By: #### L [id number] #### [facility] [address] [place], [address] Urea nitrogen [Mass/Vol] 27 mg/dL High 7-18 [facility] Comment on above: Order Comment: 111.2 UNKNOWN 20250701 0000 Performed By: #### L [id number] #### [facility] [address] [place], [place], [address] Eosinophil percentageOrdered By: Adam Ferraro on 01-02-2025 Eosinophils/100 WBC (Bld) 5.3 % High 0-5 [facility] Erythrocyte distribution wid th ratioOrdered By: Adam Ferraro on 01-02-2025 Erythrocyte distribution width (RBC) [Ratio] 12.9 % 11.6-14.6 [facility] Erythrocyte distribution wid th standard deviationOrdered By: Adam Ferraro on 01-02-2025 Erythrocyte distribution width (RBC) [Entitic vol] 41.9 fL 35.1-43.9 [facility] Erythrocyte distribution width (RBC) [Ratio] 41.9 fl 35.1-43.9 [facility] Estimated glomerular filtrat ion rate (GFR) AmericanOrdered By: Adam Ferraro on 01-02-2025 Estimated GFR (MDRD) Amer 41 mL/min Low >60 [facility] Comment on above: GFR Calc Glomerular filtration rate ( GFR) estimationOrdered By: Adam Ferraro on 01-02-2025 Estimated GFR (MDRD) Non-Af Amer 34 mL/min Low >60 [facility] Comment on above: Non- GFR Calc GFR/1.73 sq M.predicted among non-blacks MDRD (S/P/Bld) [Vol rate/Area] 34 mL/min/{1.73_m2} Low >60 [facility] Comment on above: Non- GFR Calc Glucose measurementOrdered B y: Adam Jasmine on 01-02-2025 Glucose [Mass/Vol] 115 mg/dL High 74-106 [facility] Comment on above: Fasting Glucose resu lt from 100 to 125 mg/dL suggests IMPAIRED HOMEOSTASIS per A.D.A. criteria. Hematocrit Auto (Bld) [Volum e fraction]Ordered By: Adam Ferraro on 01-02-2025 Hematocrit (Bld) [Volume fraction] 40.5 % 40-54 [facility] Hemoglobin measurementOrdere d By: Adam Ferraro on 01-02-2025 Hemoglobin (Bld) [Mass/Vol] 13.4 g/dL 13.0-16.5 [facility] Immature granulocytes/100 WB C Auto (Bld)Ordered By: Adam Ferraro on 01-02-2025 Immature granulocytes/100 WBC (Bld) 0.500 % 0.0-0.9 [facility] Comment on above: IG% - Immature Granu locytes (promyelocytes, myelocytes and metamyelocytes) > 1% indicates that a LEFT SHIFT is Present. Laboratory - Chemistry and C hemistry - challengeOrdered By: Adma Ferraro on 01-02-2025 AST [Catalytic activity/Vol] 12 U/L Low 15-37 [facility] Lithiumon 01-02-2025 LI 0.60 mmol/L Normal 0.60-1.20 [facility] Comment on above: Order Comment: 111.2 UNKNOWN [id number] 0000 Performed By: #### L [id number] #### [facility] [address], [address] [place] levelOrdered By: Benoit Ferraro on 01-02-2025 [place] Level 0.60 mmol/L 0.60-1.20 [facility] Lymphocytes Auto (Unsp spec) [#/Vol]Ordered By: Adam Ferraro on 01-02-2025 Lymphocytes (Bld) [#/Vol] 2.41 10*3/uL 0.83-4.5 1 [facility] Lymphocytes/100 WBC Auto (Un sp spec)Ordered By: Adam Ferraro on 01-02-2025 Lymphocytes/100 WBC (Bld) 25.1 % 19-41 [facility] MCV (mean corpuscular volume ) determinationOrdered By: Adam Ferraro on 01-02-2025 MCV (RBC) [Entitic vol] 90.8 fL 80-94 [facility] Mean corpuscular hemoglobin (MCH) determinationOrdered By: Adam Ferraro on 01-02-2025 MCH (RBC) [Entitic mass] 30.0 pg 27.0-32.0 [facility] Mean corpuscular hemoglobin concentration (MCHC) determinationOrdered By: Adam Ferraro on 01-02-2025 MCHC (RBC) [Mass/Vol] 33.1 g/dL 32-36 [facility] Mean platelet volume determi nationOrdered By: Adam Ferraro on 01-02-2025 Platelet mean volume (Bld) [Entitic vol] 9.5 fL 6.2-12.0 [facility] Monocyte percentageOrdered B y: Adam Ferraro on 01-02-2025 Monocytes/100 WBC (Bld) 9.4 % 0-10 [facility] Neutrophil percentageOrdered By: Adam Ferraro on 01-02-2025 Neutrophils/100 WBC (Bld) 58.6 % 47-70 [facility] Nucleated red blood cell per centageOrdered By: Adam Ferraro on 01-02-2025 Nucleated RBC/100 WBC (Bld) [Ratio] 0 % 0-5 [facility] Phosphoruson 01-02-2025 Phosphate [Mass/Vol] 4.7 mg/dL Normal 2.5-4.9 [facility] Comment on above: Order Comment: 111.2 UNKNOWN [id number] 0000 Performed By: #### L [id number] #### [facility] [address] [place] [address], [address] Phosphorus measurementOrdere d By: Adam Ferraro on 01-02-2025 Phosphorus Level 4.7 mg/dL 2.5-4.9 [facility] Platelet countOrdered By: Sabino Ferraro on 01-02-2025 Platelets (Bld) [#/Vol] 247 10*3/uL 150-450 [facility] Potassium measurementOrdered By: Adam Ferraro on 01-02-2025 Potassium [Moles/Vol] 4.1 mmol/L 3.5-5.1 [facility] RBC Auto (Bld) [#/Vol]Ordere d By: Adam Ferraro on 01-02-2025 RBC (Bld) [#/Vol] 4.46 10*6/uL Low 4.6-6.2 [facility] Serum anion gap measurementO rdered By: Adam Ferraro on 01-02-2025 Anion gap [Moles/Vol] 7 mmol/L 5-15 [facility] Serum globulin measurementOr dered By: Adam Ferraro on 01-02-2025 Globulin (S) [Mass/Vol] 3.1 g/dL 2.2-4.2 [facility] Serum or plasma alanine sesay otransferase (ALT) measurementOrdered By: Adam Ferraro on 01-02-2025 ALT [Catalytic activity/Vol] 17 U/L 16-61 [facility] Serum or plasma albumin you urement (mass/volume)Ordered By: Adam Ferraro on 01-02-2025 Albumin [Mass/Vol] 3.1 g/dL Low 3.2-5.0 [facility] Serum or plasma alkaline hal sphatase measurementOrdered By: Adam Ferraro on 01-02-2025 ALP [Catalytic activity/Vol] 81 U/L 45-117 [facility] Serum or plasma calcium you urement (mass/volume)Ordered By: Adam Ferraro on 01-02-2025 Calcium [Mass/Vol] 9.4 mg/dL 8.5-10.1 [facility] Serum or plasma creatinine m easurement (mass/volume)Ordered By: Adam Ferraro on 01-02-2025 Creatinine [Mass/Vol] 2.14 mg/dL High 0.70-1.30 [facility] Comment on above: The validity of the calculated GFR & GFRAA in patients over 70 years has not been determined. Clinical correlation is essential. Serum or plasma urea nitroge n measurement (mass/volume)Ordered By: Adam Ferraro on 01-02-2025 Urea nitrogen [Mass/Vol] 27 mg/dL High 7-18 [facility] Sodium levelOrdered By: Spike Ferraro on 01-02-2025 Sodium [Moles/Vol] 141 mmol/L 136-145 [facility] Total proteinOrdered By: Benoit loni Jasmine on 01-02-2025 Protein [Mass/Vol] 6.2 g/dL Low 6.4-8.2 [facility] White blood cell (WBC) count Ordered By: Adam Ferraro on 01-02-2025 WBC (Bld) [#/Vol] 9.6 10*3/uL 4.4-11.0 [facility] Albumin to globulin ratioOrd ered By: Adam Ferraro on 12-28-2024 Albumin/Globulin [Mass ratio] 0.9 {ratio} 0.9-2.4 [facility] Bilirubin, totalOrdered By: Adam Ferraro on 12-28-2024 Bilirubin [Mass/Vol] 0.30 mg/dL 0.20-1.00 [facility] Comment on above: For patients on eltr ombopag therapy, use of Dimension [place] TBIL is not recommended. Blood urea nitrogen (BUN)/cr eatinine ratioOrdered By: Adam Ferraro on 12-28-2024 Urea nitrogen/Creatinine [Mass ratio] 10.0 mg/mg 10-20 [facility] CBC-Complete Blood Cnt No Di ffon 12-28-2024 Erythrocyte distribution width (RBC) [Ratio] 13.1 % Normal 11.6-14.6 [facility] Comment on above: Order Comment: 111.2 Performed By: #### L 100.0500, L500.4050, L501.1400 #### [facility] [address] [place], [address] Hematocrit (Bld) [Volume fraction] 40.4 % Normal 40-54 [facility] Comment on above: Order Comment: 111.2 Performed By: #### L 100.0500, L500.4050, L501.1400 #### [facility] [address] [place], [address] Hemoglobin (Bld) [Mass/Vol] 13.2 g/dL Normal 13.0-16.5 [facility] Comment on above: Order Comment: 111.2 Performed By: #### L 100.0500, L500.4050, L501.1400 #### [facility] [address] [place], [address] MCH (RBC) [Entitic mass] 29.7 pg Normal 27.0-32.0 [facility] Comment on above: Order Comment: 111.2 Performed By: #### L 100.0500, L500.4050, L501.1400 #### [facility] [address] [place], [address] MCHC (RBC) [Mass/Vol] 32.7 g/dL Normal 32-36 [facility] Comment on above: Order Comment: 111.2 Performed By: #### L 100.0500, L500.4050, L501.1400 #### [facility] [address] [place], [address] MCV (RBC) [Entitic vol] 91.0 fL Normal 80-94 [facility] Comment on above: Order Comment: 111.2 Performed By: #### L 100.0500, L500.4050, L501.1400 #### [facility] [address] [place], [address] Platelet mean volume (Bld) [Entitic vol] 9.3 fL Normal 6.2-12.0 [facility] Comment on above: Order Comment: 111.2 Performed By: #### L 100.0500, L500.4050, L501.1400 #### [facility] [address] [place], [address] Platelets (Bld) [#/Vol] 248 10*3/uL Normal 150-450 [facility] Comment on above: Order Comment: 111.2 Performed By: #### L 100.0500, L500.4050, L501.1400 #### [facility] [address] [place], [address] RBC (Bld) [#/Vol] 4.44 10*6/uL Low 4.6-6.2 [facility] Comment on above: Order Comment: 111.2 Performed By: #### L 100.0500, L500.4050, L501.1400 #### [facility] [address] [place], [address] RDW SD 42.4 fl Normal 35.1-43.9 [facility] Comment on above: Order Comment: 111.2 Performed By: #### L 100.0500, L500.4050, L501.1400 #### [facility] [address] [place], [address] WBC (Bld) [#/Vol] 10.5 10*3/uL Normal 4.4-11.0 [facility] Comment on above: Order Comment: 111.2 Performed By: #### L 100.0500, L500.4050, L501.1400 #### [facility] [address] [place], [address] Carbon dioxide measurementOr dered By: Adam Ferraro on 12-28-2024 CO2 [Moles/Vol] 25.0 mmol/L 21.0-32.0 [facility] Chloride measurementOrdered By: Adam Ferraro on 12-28-2024 Chloride [Moles/Vol] 110 mmol/L High 98-107 [facility] Comprehensive Metabolic Prof ilon 12-28-2024 Albumin [Mass/Vol] 3.0 g/dL Low 3.2-5.0 [facility] Comment on above: Order Comment: 111.2 Performed By: #### L 100.0500, L500.4050, L501.1400 #### [facility] [address] [place], [address] Albumin/Globulin [Mass ratio] 0.9 {ratio} Normal 0.9-2.4 [facility] Comment on above: Order Comment: 111.2 Performed By: #### L 100.0500, L500.4050, L501.1400 #### [facility] [address] [place], [address] ALK P 81 U/L Normal 45-117 [facility] Comment on above: Order Comment: 111.2 Performed By: #### L 100.0500, L500.4050, L501.1400 #### [facility] [address] [place], [address] ALT [Catalytic activity/Vol] 20 U/L Normal 16-61 [facility] Comment on above: Order Comment: 111.2 Performed By: #### L 100.0500, L500.4050, L501.1400 #### [facility] [address] [place], [address] AST [Catalytic activity/Vol] 11 U/L Low 15-37 [facility] Comment on above: Order Comment: 111.2 Performed By: #### L 100.0500, L500.4050, L501.1400 #### [facility] [address] [place], [address] Bilirubin [Mass/Vol] 0.30 mg/dL Normal 0.20-1.00 [facility] Comment on above: Order Comment: 111.2 Result Comment: For patients on eltrombopag therapy, use of Dimension [place] TBIL is not recommended. Performed By: #### L 100.0500, L500.4050, L501.1400 #### [facility] [address] [place], [address] BUN/CRE 10.0 RATIO Normal 10-20 [facility] Comment on above: Order Comment: 111.2 Performed By: #### L 100.0500, L500.4050, L501.1400 #### [facility] [address] [place], [address] CA,Total 9.3 mg/dL Normal 8.5-10.1 [facility] Comment on above: Order Comment: 111.2 Performed By: #### L 100.0500, L500.4050, L501.1400 #### [facility] [address] [place], [address] Chloride [Moles/Vol] 110 mmol/L High 98-107 [facility] Comment on above: Order Comment: 111.2 Performed By: #### L 100.0500, L500.4050, L501.1400 #### [facility] [address] [place], [address] CO2 [Moles/Vol] 25.0 mmol/L Normal 21.0-32.0 [facility] Comment on above: Order Comment: 111.2 Performed By: #### L 100.0500, L500.4050, L501.1400 #### [facility] [address] [place], [address] Creatinine [Mass/Vol] 2.09 mg/dL High 0.70-1.30 [facility] Comment on above: Order Comment: 111.2 Result Comment: The validity of the calculated GFR GFRAA in patients over 70 years has not been determined. Clinical correlation is essential. Performed By: #### L 100.0500, L500.4050, L501.1400 #### [facility] [address] [place], [address] EST GFR - AA 42 mL/min Low >60 [facility] Comment on above: Order Comment: 111.2 Result Comment: Afri can Macedonian GFR Calc Performed By: #### L 100.0500, L500.4050, L501.1400 #### [facility] [address] [place], [address] GAP 6 Normal 5-15 [facility] Comment on above: Order Comment: 111.2 Performed By: #### L 100.0500, L500.4050, L501.1400 #### [facility] [address] [place], [address] GFR/1.73 sq M.predicted among non-blacks MDRD (S/P/Bld) [Vol rate/Area] 34 mL/min/{1.73_m2} Low >60 [facility] Comment on above: Order Comment: 111.2 Result Comment: Non- GFR Calc Performed By: #### L 100.0500, L500.4050, L501.1400 #### [facility] [address] [place], [address] Globulin (S) [Mass/Vol] 3.4 g/dL Normal 2.2-4.2 [facility] Comment on above: Order Comment: 111.2 Performed By: #### L 100.0500, L500.4050, L501.1400 #### [facility] [address] [place], [address] Glucose [Mass/Vol] 119 mg/dL High 74-106 [facility] Comment on above: Order Comment: 111.2 Result Comment: Fast ing Glucose result from 100 to 125 mg/dL suggests IMPAIRED HOMEOSTASIS per A.D.A. criteria. Performed By: #### L 100.0500, L500.4050, L501.1400 #### [facility] [address] [place], [address] Potassium [Moles/Vol] 4.3 mmol/L Normal 3.5-5.1 [facility] Comment on above: Order Comment: 111.2 Performed By: #### L 100.0500, L500.4050, L501.1400 #### [facility] [address] [place], [address] Sodium [Moles/Vol] 141 mmol/L Normal 136-145 [facility] Comment on above: Order Comment: 111.2 Performed By: #### L 100.0500, L500.4050, L501.1400 #### [facility] [address] [place], [address] T PROT 6.4 g/dL Normal 6.4-8.2 [facility] Comment on above: Order Comment: 111.2 Performed By: #### L 100.0500, L500.4050, L501.1400 #### [facility] [address] [place], [place], [address] Urea nitrogen [Mass/Vol] 21 mg/dL High 7-18 [facility] Comment on above: Order Comment: 111.2 Performed By: #### L 100.0500, L500.4050, L501.1400 #### [facility] [address] [place], [place], [address] Erythrocyte distribution wid th ratioOrdered By: Adam Ferraro on 12-28-2024 Erythrocyte distribution width (RBC) [Ratio] 13.1 % 11.6-14.6 [facility] Erythrocyte distribution wid th standard deviationOrdered By: Adam Ferraro on 12-28-2024 Erythrocyte distribution width (RBC) [Entitic vol] 42.4 fL 35.1-43.9 [facility] Erythrocyte distribution width (RBC) [Ratio] 42.4 fl 35.1-43.9 [facility] Estimated glomerular filtrat ion rate (GFR) AmericanOrdered By: Adam Ferraro on 12-28-2024 Estimated GFR (MDRD) Amer 42 mL/min Low >60 [facility] Comment on above: GFR Calc Glomerular filtration rate ( GFR) estimationOrdered By: Adam Ferraro on 12-28-2024 Estimated GFR (MDRD) Non-Af Amer 34 mL/min Low >60 [facility] Comment on above: Non- GFR Calc GFR/1.73 sq M.predicted among non-blacks MDRD (S/P/Bld) [Vol rate/Area] 34 mL/min/{1.73_m2} Low >60 [facility] Comment on above: Non- GFR Calc Glucose measurementOrdered B y: Adam Ferraro on 12-28-2024 Glucose [Mass/Vol] 119 mg/dL High 74-106 [facility] Comment on above: Fasting Glucose resu lt from 100 to 125 mg/dL suggests IMPAIRED HOMEOSTASIS per A.D.A. criteria. Hematocrit Auto (Bld) [Volum e fraction]Ordered By: Adam Ferraro on 12-28-2024 Hematocrit (Bld) [Volume fraction] 40.4 % 40-54 [facility] Hemoglobin measurementOrdere d By: Adam Ferraro on 12-28-2024 Hemoglobin (Bld) [Mass/Vol] 13.2 g/dL 13.0-16.5 [facility] - Chemistry and C hemistry - challengeOrdered By: Adam Ferraro on 12-28-2024 AST [Catalytic activity/Vol] 11 U/L Low 15-37 [facility] MCV (mean corpuscular volume ) determinationOrdered By: Adam Ferraro on 12-28-2024 MCV (RBC) [Entitic vol] 91.0 fL 80-94 [facility] Mean corpuscular hemoglobin (MCH) determinationOrdered By: Adam Ferraro on 12-28-2024 MCH (RBC) [Entitic mass] 29.7 pg 27.0-32.0 [facility] Mean corpuscular hemoglobin concentration (MCHC) determinationOrdered By: Adam Ferraro on 12-28-2024 MCHC (RBC) [Mass/Vol] 32.7 g/dL 32-36 [facility] Mean platelet volume determi nationOrdered By: Adam Ferraro on 12-28-2024 Platelet mean volume (Bld) [Entitic vol] 9.3 fL 6.2-12.0 [facility] Platelet countOrdered By: Sabino Ferraro on 12-28-2024 Platelets (Bld) [#/Vol] 248 10*3/uL 150-450 [facility] Potassium measurementOrdered By: Adam Ferraro on 12-28-2024 Potassium [Moles/Vol] 4.3 mmol/L 3.5-5.1 [facility] RBC Auto (Bld) [#/Vol]Ordere d By: Adam Ferraro on 12-28-2024 RBC (Bld) [#/Vol] 4.44 10*6/uL Low 4.6-6.2 [facility] Serum anion gap measurementO rdered By: Adam Ferraro on 12-28-2024 Anion gap [Moles/Vol] 6 mmol/L 5-15 [facility] Serum globulin measurementOr dered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 [facility] Basophils/100 WBC (Bld) 0.8 % 0-1 [facility] Chloride [Moles/Vol] 109 mmol/L 98-107 [facility] Eosinophils/100 WBC (Bld) 3.9 % 0-5 [facility] Glucose [Mass/Vol] 113 mg/dL 74-106 [facility] Comment on above: Fasting Glucose resu lt from 100 to 125 mg/dL suggests IMPAIRED HOMEOSTASIS per A.D.A. criteria. Hemoglobin (Bld) [Mass/Vol] 13.7 g/dL 13.0-16.5 [facility] Monocytes/100 WBC (Bld) 8.4 % 0-10 [facility] Neutrophils (Bld) [#/Vol] 6.3 10*3/uL 2.0-7.7 [facility] Neutrophils/100 WBC (Bld) 65.7 % 47-70 [facility] Potassium [Moles/Vol] 4.2 mmol/L 3.5-5.1 [facility] Sodium [Moles/Vol] 143 mmol/L 136-145 [facility] WBC (Bld) [#/Vol] 9.6 10*3/uL 4.4-11.0 [facility] Determination of erythrocyte mean corpuscular volume (MCV)Ordered By: Alfredo Phipps on 01-06-2024 MCV (RBC) [Entitic vol] 90.1 fL 80-94 [facility] Erythrocyte distribution wid th ratioOrdered By: Alfredo Phipps on 01-06-2024 Erythrocyte distribution width (RBC) [Ratio] 13.2 % 11.6-14.6 [facility] Erythrocyte distribution wid th standard deviationOrdered By: Alfredo Phipps on 01-06-2024 Erythrocyte distribution width (RBC) [Entitic vol] 43.2 fL 35.1-43.9 [facility] Hematocrit Auto (Bld) [Volum e fraction]Ordered By: Alfredo Phipps on 01-06-2024 Hematocrit (Bld) [Volume fraction] 41.7 % 40-54 [facility] Immature granulocytes/100 WB C Auto (Bld)Ordered By: Alfredo Phipps on 01-06-2024 Immature granulocytes/100 WBC (Bld) 0.300 % 0.0-0.9 [facility] Comment on above: IG% - Immature Granu locytes (promyelocytes, myelocytes and metamyelocytes) > 1% indicates that a LEFT SHIFT is Present. Laboratory - Chemistry and C hemistry - challengeOrdered By: Alfredo Phipps on 01-06-2024 CO2 [Moles/Vol] 24.0 mmol/L 21.0-32.0 [facility] Urea nitrogen/Creatinine [Mass ratio] 8.9 mg/mg 10-20 [facility] - Hematology and Cell countsOrdered By: Alfredo Phipps on 01-06-2024 MCH (RBC) [Entitic mass] 29.6 pg 27.0-32.0 [facility] MCHC (RBC) [Mass/Vol] 32.9 g/dL 32-36 [facility] Nucleated RBC/100 WBC (Bld) [Ratio] 0 % 0-5 [facility] Platelet mean volume (Bld) [Entitic vol] 9.6 fL 6.2-12.0 [facility] Platelets (Bld) [#/Vol] 209 10*3/uL 150-450 [facility] No Panel InformationOrdered By: Alfredo Phipps on 01-06-2024 Estimated GFR (MDRD) Amer 44 mL/min >60 [facility] Comment on above: GFR Calc Estimated GFR (MDRD) Non-Af Amer 36 mL/min >60 [facility] Comment on above: Non- GFR Calc [place] Level 0.60 mmol/L 0.60-1.20 [facility] RBC Auto (Bld) [#/Vol]Ordere d By: Alfredo Phipps on 01-06-2024 RBC (Bld) [#/Vol] 4.63 10*6/uL 4.6-6.2 [facility] Serum or plasma calcium you urement (mass/volume)Ordered By: Alfredo Phipps on 01-06-2024 Calcium [Mass/Vol] 9.3 mg/dL 8.5-10.1 [facility] Serum or plasma creatinine m easurement (mass/volume)Ordered By: Alfredo Phipps on 01-06-2024 Creatinine [Mass/Vol] 2.02 mg/dL 0.70-1.30 [facility] Comment on above: The validity of the calculated GFR & GFRAA in patients over 70 years has not been determined. Clinical correlation is essential. Serum or plasma urea nitroge n measurement (mass/volume)Ordered By: Alfredo Phipps on 01-06-2024 Urea nitrogen [Mass/Vol] 18 mg/dL 7-18 [facility] Thin prep Papanicolaou smear with manual screeningOrdered By: Alfredo Phipps on 01-06-2024 Thin prep Papanicolaou smear with manual screening 3.3 g/dL 3.2-5.0 [facility] Protein (U) [Mass/Vol] 19.0 mg/dL 0.0-11.8 [facility] Urine creatinine measurement (mass/volume)Ordered By: Alfredo Phipps on 01-06-2024 Creatinine (U) [Mass/Vol] 122.00 mg/dL NO RANGE EST. [facility] Urine protein/creatinine mas s ratioOrdered By: Alfredo Phipps on 01-06-2024 Protein/Creatinine (U) [Mass ratio] 156 mg/g CRE 0-200 [facility] CBC W Auto Differential pane l (Bld)on 12-20-2023 Basophils (Bld) [#/Vol] 0.11 10*3/uL High <0.11 k/uL [facility] Basophils/100 WBC (Bld) 1.0 % [facility] Differential cell count method Nom (Bld) Auto [facility] Eosinophils (Bld) [#/Vol] 0.31 10*3/uL <0.46 k/ uL [facility] Eosinophils/100 WBC (Bld) 2.8 % [facility] Erythrocyte distribution width (RBC) [Ratio] 12.9 % 11.5 - 15.0 % [facility] Hematocrit (Bld) [Volume fraction] 46.0 % 39.0 - 51.0 % [facility] Hemoglobin (Bld) [Mass/Vol] 15.2 g/dL 13.0 - 17.0 g/dL [facility] Immature granulocytes (Bld) [#/Vol] 0.06 10*3/uL <0.10 k/uL [facility] Immature granulocytes/100 WBC (Bld) 0.5 % [facility] Lymphocytes (Bld) [#/Vol] 1.82 10*3/uL 1. 00 - 4.00 k/uL [facility] Lymphocytes/100 WBC (Bld) 16.5 % [facility] MCH (RBC) [Entitic mass] 28.9 pg 26. 0 - 34.0 pg [facility] MCHC (RBC) [Mass/Vol] 33.0 g/dL 30.5 - 36.0 g/dL [facility] MCV (RBC) [Entitic vol] 87.5 fL 80.0 - 100.0 fL [facility] Monocytes (Bld) [#/Vol] 0.88 10*3/uL High <0.87 k/uL [facility] Monocytes/100 WBC (Bld) 8.0 % [facility] Neutrophils (Bld) [#/Vol] 7.82 10*3/uL High 1. 45 - 7.50 k/uL [facility] Neutrophils/100 WBC (Bld) 71.2 % [facility] Nucleated RBC (Bld) [#/Vol] <0.01 k/uL [facility] Nucleated RBC/100 WBC (Bld) [Ratio] 0.0 /100 WBC [facility] Platelet mean volume (Bld) [Entitic vol] 9.4 fL 9.0 - 12.7 fL [facility] Platelets (Bld) [#/Vol] 247 10*3/uL 150 - 400 k/uL [facility] RBC (Bld) [#/Vol] 5.26 10*6/uL 4.20 - 6.0 0 m/uL [facility] WBC (Bld) [#/Vol] 11.00 10*3/uL 3.70 - 11.00 k/uL [facility] CYSTATIN Con 12-20-2023 Cystatin C [Mass/Vol] 1.87 mg/L High 0.61 - 0.95 mg/L [facility] Cystatin C eGFR 34 mL/min/1.73m Low >=60 mL/min/1.73 m [facility] Comprehensive metabolic 2000 panelon 12-20-2023 Albumin [Mass/Vol] 4.2 g/dL 3.9 - 4.9 g/dL [facility] ALP [Catalytic activity/Vol] 105 U/L 38 - 113 U/L [facility] ALT [Catalytic activity/Vol] 31 U/L 10 - 54 U/L [facility] Anion gap [Moles/Vol] 15 mmol/L 9 - 18 mmol/L [facility] AST [Catalytic activity/Vol] 19 U/L 14 - 40 U/L [facility] Bilirubin [Mass/Vol] 0.3 mg/dL 0.2 - 1 .3 mg/dL [facility] Calcium [Mass/Vol] 10.2 mg/dL 8.5 - 10. 2 mg/dL [facility] Chloride [Moles/Vol] 103 mmol/L 97 - 10 5 mmol/L [facility] CO2 [Moles/Vol] 24 mmol/L 22 - 30 mmol/L [facility] Creatinine [Mass/Vol] 2.22 mg/dL High 0.73 - 1.22 mg/dL [facility] Estimated Glomerular Filtration Rate 33 mL/min/1.73m Low >=60 mL/min/1.73 m [facility] Glucose [Mass/Vol] 114 mg/dL High 74 - 99 mg/dL [facility] Potassium [Moles/Vol] 4.2 mmol/L 3.7 - 5.1 mmol/L [facility] Protein [Mass/Vol] 7.0 g/dL 6.3 - 8.0 g/dL [facility] Sodium [Moles/Vol] 142 mmol/L 136 - 144 mmol/L [facility] Urea nitrogen [Mass/Vol] 19 mg/dL 9 - 24 mg/dL [facility] LIPID PANEL, NONFASTINGon Cholesterol [Mass/Vol] 139 mg/dL <200 mg/dL [facility] HDL Cholesterol, Nonfasting 32 mg/dL Low >39 mg/dL [facility] LDL Cholesterol, Nonfasting 51 mg/dL <100 mg/dL [facility] LDL/HDL Ratio, Nonfasting 1.59 mg/dL <2.54 mg/d L [facility] Non HDL Cholesterol, Nonfasting 107 mg/dL <130 mg/dL [facility] Total Chol/HDL Ratio, Nonfasting 4.34 mg/dL <5.10 mg/dL [facility] Triglycerides, Nonfasting 280 mg/dL High <150 mg/dL [facility] VLDL Cholesterol, Nonfasting 56 mg/dL High <30 mg/dL [facility] PHOSPHORUS INORGANICon 12-20 Phosphate [Mass/Vol] 2.1 mg/dL Low 2.7 - 4 .8 mg/dL [facility] PROTEIN CREATININE RATIOon 0 12-20-2023 Protein/Creatinine (U) [Mass ratio] 0.07 mg/mg <0.15 mg/mg [facility] PTH INTACT BLDon 12-20-2023 Parathyrin.intact [Mass/Vol] 121 pg/mL High 15 - 65 pg/mL [facility] Protein/Creatinine (U) [Mass ratio]on 12-20-2023 Creatinine (U) [Mass/Vol] 103.8 mg/dL 20 .0 - 300.0 mg/dL [facility] Protein (U) [Mass/Vol] 7 mg/dL 0 - 2 0 mg/dL [facility] URINALYSIS, REFLEX MICROSCOP ICon 12-20-2023 Bilirubin Ql (U) Negative Negative [facility] Clarity (Unsp spec) Clear Clear [facility] Color (U) Light Yellow Yellow [facility] Glucose Test strip (U) [Mass/Vol] Negative Trace, Negative [facility] Hemoglobin Ql (U) Negative Negative, Trace [facility] Ketones Ql (U) Negative Negative, Trace [facility] Leukocyte esterase Test strip Ql (U) Negative Negative, 25 Mary/uL [facility] Nitrite Ql (U) Negative Negative [facility] pH (U) 6.0 [pH] 5.0 - 8.0 [facility] Protein (U) [Mass/Vol] Negative Trace , Negative [facility] Specific gravity (U) [Rel density] 1.010 1.005 - 1.030 [facility] Urobilinogen Ql (U) Normal Normal [facility] Absolute lymphocyte countOrd ered By: Alfredo Phipps on 12-09-2023 Lymphocytes Auto (Unsp spec) [#/Vol] 2.24 10*3/uL 0.83-4.51 [facility] Automated lymphocyte count a s percentage of total leukocytesOrdered By: Alfredo Phipps on 12-09-2023 Lymphocytes/100 WBC Auto (Unsp spec) 23.2 % 19-41 [facility] Basophil percentageOrdered B y: Alfredo Phipps on 12-09-2023 Basophil percentage 3.8 mg/dL 2.5-4.9 [facility] Basophils/100 WBC (Bld) 1.0 % 0-1 [facility] Chloride [Moles/Vol] 110 mmol/L 98-107 [facility] Eosinophils/100 WBC (Bld) 3.9 % 0-5 [facility] Glucose [Mass/Vol] 129 mg/dL 74-106 [facility] Comment on above: Fasting Glucose resu lt greater than or equal to 126 mg/dL suggests DIABETES MELLITUS per A.D.A. criteria. Hemoglobin (Bld) [Mass/Vol] 13.9 g/dL 13.0-16.5 [facility] Monocytes/100 WBC (Bld) 9.3 % 0-10 [facility] Neutrophils (Bld) [#/Vol] 6.0 10*3/uL 2.0-7.7 [facility] Neutrophils/100 WBC (Bld) 62.2 % 47-70 [facility] Potassium [Moles/Vol] 3.5 mmol/L 3.5-5.1 [facility] Sodium [Moles/Vol] 138 mmol/L 136-145 [facility] WBC (Bld) [#/Vol] 9.7 10*3/uL 4.4-11.0 [facility] Determination of erythrocyte mean corpuscular volume (MCV)Ordered By: Alfredo Phipps on 12-09-2023 MCV (RBC) [Entitic vol] 90.2 fL 80-94 [facility] Erythrocyte distribution wid th ratioOrdered By: Alfredo Phipps on 12-09-2023 Erythrocyte distribution width (RBC) [Ratio] 13.1 % 11.6-14.6 [facility] Erythrocyte distribution wid th standard deviationOrdered By: Alfredo Phipps on 12-09-2023 Erythrocyte distribution width (RBC) [Entitic vol] 43.2 fL 35.1-43.9 [facility] Hematocrit Auto (Bld) [Volum e fraction]Ordered By: Alfredo Phipps on 12-09-2023 Hematocrit (Bld) [Volume fraction] 43.2 % 40-54 [facility] Immature granulocytes/100 WB C Auto (Bld)Ordered By: Alfredo Phipps on 12-09-2023 Immature granulocytes/100 WBC (Bld) 0.400 % 0.0-0.9 [facility] Comment on above: IG% - Immature Granu locytes (promyelocytes, myelocytes and metamyelocytes) > 1% indicates that a LEFT SHIFT is Present. Laboratory - Chemistry and C hemistry - challengeOrdered By: Alfredo Phipps on 12-09-2023 CO2 [Moles/Vol] 21.0 mmol/L 21.0-32.0 [facility] Urea nitrogen/Creatinine [Mass ratio] 7.4 mg/mg 10-20 [facility] Laboratory - Hematology and Cell countsOrdered By: Alfredo Phipps on 12-09-2023 MCH (RBC) [Entitic mass] 29.0 pg 27.0-32.0 [facility] MCHC (RBC) [Mass/Vol] 32.2 g/dL 32-36 [facility] Nucleated RBC/100 WBC (Bld) [Ratio] 0 % 0-5 [facility] Platelets (Bld) [#/Vol] 235 10*3/uL 150-450 [facility] No Panel InformationOrdered By: Alfredo Phipps on 12-09-2023 Estimated GFR (MDRD) Amer 44 mL/min >60 [facility] Comment on above: GFR Calc Estimated GFR (MDRD) Non-Af Amer 36 mL/min >60 [facility] Comment on above: Non- GFR Calc [place] Level 0.40 mmol/L 0.60-1.20 [facility] Platelet mean volume Naresh-Ec ker (Bld) [Entitic vol]Ordered By: Alfredo Phipps on 12-09-2023 Platelet mean volume (Bld) [Entitic vol] 9.5 fL 6.2-12.0 [facility] RBC Auto (Bld) [#/Vol]Ordere d By: Alfredo Phipps on 12-09-2023 RBC (Bld) [#/Vol] 4.79 10*6/uL 4.6-6.2 [facility] Serum or plasma calcium you urement (mass/volume)Ordered By: Alfredo Phipps on 12-09-2023 Calcium [Mass/Vol] 9.3 mg/dL 8.5-10.1 [facility] Serum or plasma creatinine m easurement (mass/volume)Ordered By: Alfredo Phipps on 12-09-2023 Creatinine [Mass/Vol] 2.02 mg/dL 0.70-1.30 [facility] Comment on above: The validity of the calculated GFR & GFRAA in patients over 70 years has not been determined. Clinical correlation is essential. Serum or plasma urea nitroge n measurement (mass/volume)Ordered By: Alfredo Phipps on 12-09-2023 Urea nitrogen [Mass/Vol] 15 mg/dL 7-18 [facility] Thin prep Papanicolaou smear with manual screeningOrdered By: Alfredo Phipps on 12-09-2023 Thin prep Papanicolaou smear with manual screening 3.2 g/dL 3.2-5.0 [facility] Urine creatinine measurement (mass/volume)Ordered By: Adam Ferraro on 11-16-2023 Creatinine (U) [Mass/Vol] 178.00 mg/dL NO RANGE EST. [facility] Urine protein measurement (m ass/volume)Ordered By: Adam Ferraro on 11-16-2023 Protein (U) [Mass/Vol] 28.7 mg/dL 0.0-11.8 [facility] Urine protein/creatinine mas s ratioOrdered By: Adam Ferraro on 11-16-2023 Protein/Creatinine (U) [Mass ratio] 161 mg/g CRE 0-200 [facility] Absolute lymphocyte countOrd ered By: Adam Ferraro on 11-11-2023 Lymphocytes Auto (Unsp spec) [#/Vol] 3.10 10*3/uL 0.83-4.51 [facility] Basophil percentageOrdered B y: Adam Ferraro on 11-11-2023 Basophil percentage 3.6 mg/dL 2.5-4.9 [facility] Basophils/100 WBC (Bld) 0.8 % 0-1 [facility] Chloride [Moles/Vol] 108 mmol/L 98-107 [facility] Eosinophils/100 WBC (Bld) 3.4 % 0-5 [facility] Glucose [Mass/Vol] 120 mg/dL 74-106 [facility] Comment on above: Fasting Glucose resu lt from 100 to 125 mg/dL suggests IMPAIRED HOMEOSTASIS per A.D.A. criteria. Neutrophils (Bld) [#/Vol] 7.1 10*3/uL 2.0-7.7 [facility] Neutrophils/100 WBC (Bld) 61.0 % 47-70 [facility] Potassium [Moles/Vol] 3.6 mmol/L 3.5-5.1 [facility] Sodium [Moles/Vol] 140 mmol/L 136-145 [facility] WBC (Bld) [#/Vol] 11.6 10*3/uL 4.4-11.0 [facility] Blood erythrocytes count (nu mber/volume)Ordered By: Adam Ferraro on 11-11-2023 RBC (Bld) [#/Vol] 4.98 10*6/uL 4.6-6.2 [facility] Blood hemoglobin measurement (mass/volume)Ordered By: Adam Ferraro on 11-11-2023 Hemoglobin (Bld) [Mass/Vol] 14.4 g/dL 13.0-16.5 [facility] Blood lymphocytes/100 leukoc ytesOrdered By: Adam Ferraro on 11-11-2023 Lymphocytes/100 WBC (Bld) 26.7 % 19-41 [facility] Blood monocytes/100 leukocyt esOrdered By: Adam Ferraro on 11-11-2023 Monocytes/100 WBC (Bld) 7.3 % 0-10 [facility] Blood platelet mean volumeOr dered By: Adam Ferraro on 11-11-2023 Platelet mean volume (Bld) [Entitic vol] 9.4 fL 6.2-12.0 [facility] Determination of erythrocyte mean corpuscular volume (MCV)Ordered By: Adam Ferraro on 11-11-2023 MCV (RBC) [Entitic vol] 89.8 fL 80-94 [facility] Hematocrit Auto (Bld) [Volum e fraction]Ordered By: Adam Ferraro on 11-11-2023 Hematocrit (Bld) [Volume fraction] 44.7 % 40-54 [facility] Laboratory - Chemistry and C hemistry - challengeOrdered By: Adam Ferraro on 11-11-2023 CO2 [Moles/Vol] 24.0 mmol/L 21.0-32.0 [facility] Urea nitrogen/Creatinine [Mass ratio] 7.8 mg/mg 10-20 [facility] Laboratory - Hematology and Cell countsOrdered By: Adam Ferraro on 11-11-2023 Erythrocyte distribution width (RBC) [Entitic vol] 42.7 fL 35.1-43.9 [facility] Erythrocyte distribution width (RBC) [Ratio] 13.1 % 11.6-14.6 [facility] Immature granulocytes/100 WBC (Bld) 0.800 % 0.0-0.9 [facility] Comment on above: IG% - Immature Granu locytes (promyelocytes, myelocytes and metamyelocytes) > 1% indicates that a LEFT SHIFT is Present. MCH (RBC) [Entitic mass] 28.9 pg 27.0-32.0 [facility] Nucleated RBC/100 WBC (Bld) [Ratio] 0 % 0-5 [facility] MCHC Auto (RBC) [Mass/Vol]Or dered By: Adam Ferraro on 11-11-2023 MCHC (RBC) [Mass/Vol] 32.2 g/dL 32-36 [facility] No Panel InformationOrdered By: Adam Ferraro on 11-11-2023 Estimated GFR (MDRD) Amer 37 mL/min >60 [facility] Comment on above: GFR Calc Estimated GFR (MDRD) Non-Af Amer 31 mL/min >60 [facility] Comment on above: Non- GFR Calc [place] Level 0.60 mmol/L 0.60-1.20 [facility] Platelets bldOrdered By: Benoit Ferraro on 11-11-2023 Platelets (Bld) [#/Vol] 252 10*3/uL 150-450 [facility] Serum or plasma albumin you urement (mass/volume)Ordered By: Adam Ferraro on 11-11-2023 Albumin [Mass/Vol] 3.1 g/dL 3.2-5.0 [facility] Serum or plasma calcium you urement (mass/volume)Ordered By: Adam Ferraro on 11-11-2023 Calcium [Mass/Vol] 8.9 mg/dL 8.5-10.1 [facility] Serum or plasma creatinine m easurement (mass/volume)Ordered By: Adam Ferraro on 11-11-2023 Creatinine [Mass/Vol] 2.31 mg/dL 0.70-1.30 [facility] Comment on above: The validity of the calculated GFR & GFRAA in patients over 70 years has not been determined. Clinical correlation is essential. Serum or plasma urea nitroge n measurement (mass/volume)Ordered By: Adam Ferraro on 11-11-2023 Urea nitrogen [Mass/Vol] 18 mg/dL 7-18 [facility] Serum or plasma uric acid me asurement (mass/volume)Ordered By: Adam Ferraro on 10-27-2023 Urate [Mass/Vol] 8.1 mg/dL 3.5-7.2 [facility] Comment on above: The drugs N-Acetylcy steine and Metamizole may falsely depress this assay. Absolute lymphocyte countOrd ered By: Alfredo Phipps on 10-14-2023 Lymphocytes Auto (Unsp spec) [#/Vol] 1.52 10*3/uL 0.83-4.51 [facility] Basophil percentageOrdered B y: Alfredo Phipps on 10-14-2023 Basophil percentage 3.2 mg/dL 2.5-4.9 [facility] Basophils/100 WBC (Bld) 1.2 % 0-1 [facility] Chloride [Moles/Vol] 110 mmol/L 98-107 [facility] Eosinophils/100 WBC (Bld) 5.0 % 0-5 [facility] Glucose [Mass/Vol] 151 mg/dL 74-106 [facility] Comment on above: Fasting Glucose resu lt greater than or equal to 126 mg/dL suggests DIABETES MELLITUS per A.D.A. criteria. Neutrophils (Bld) [#/Vol] 6.6 10*3/uL 2.0-7.7 [facility] Neutrophils/100 WBC (Bld) 68.8 % 47-70 [facility] Potassium [Moles/Vol] 3.8 mmol/L 3.5-5.1 [facility] Sodium [Moles/Vol] 141 mmol/L 136-145 [facility] WBC (Bld) [#/Vol] 9.5 10*3/uL 4.4-11.0 [facility] Blood erythrocytes count (nu mber/volume)Ordered By: Alfredo Phipps on 10-14-2023 RBC (Bld) [#/Vol] 4.51 10*6/uL 4.6-6.2 [facility] Blood hemoglobin measurement (mass/volume)Ordered By: Alfredo Phipps on 10-14-2023 Hemoglobin (Bld) [Mass/Vol] 13.0 g/dL 13.0-16.5 [facility] Blood lymphocytes/100 leukoc ytesOrdered By: Alfredo Phipps on 10-14-2023 Lymphocytes/100 WBC (Bld) 15.9 % 19-41 [facility] Blood monocytes/100 leukocyt esOrdered By: Alfredo Phipps on 10-14-2023 Monocytes/100 WBC (Bld) 8.3 % 0-10 [facility] Blood platelet mean volumeOr dered By: Alfredo Phipps on 10-14-2023 Platelet mean volume (Bld) [Entitic vol] 9.7 fL 6.2-12.0 [facility] Determination of erythrocyte mean corpuscular volume (MCV)Ordered By: Alfredo Phipps on 10-14-2023 MCV (RBC) [Entitic vol] 90.2 fL 80-94 [facility] Hematocrit Auto (Bld) [Volum e fraction]Ordered By: Alfredo Phipps on 10-14-2023 Hematocrit (Bld) [Volume fraction] 40.7 % 40-54 [facility] Laboratory - Chemistry and C hemistry - challengeOrdered By: Alfredo Phipps on 10-14-2023 CO2 [Moles/Vol] 26.0 mmol/L 21.0-32.0 [facility] Urea nitrogen/Creatinine [Mass ratio] 7.5 mg/mg 10-20 [facility] Laboratory - Hematology and Cell countsOrdered By: Alfredo Phipps on 10-14-2023 Erythrocyte distribution width (RBC) [Entitic vol] 43.6 fL 35.1-43.9 [facility] Erythrocyte distribution width (RBC) [Ratio] 13.2 % 11.6-14.6 [facility] Immature granulocytes/100 WBC (Bld) 0.800 % 0.0-0.9 [facility] Comment on above: IG% - Immature Granu locytes (promyelocytes, myelocytes and metamyelocytes) > 1% indicates that a LEFT SHIFT is Present. MCH (RBC) [Entitic mass] 28.8 pg 27.0-32.0 [facility] Nucleated RBC/100 WBC (Bld) [Ratio] 0 % 0-5 [facility] MCHC Auto (RBC) [Mass/Vol]Or dered By: Alfredo Phipps on 10-14-2023 MCHC (RBC) [Mass/Vol] 31.9 g/dL 32-36 [facility] No Panel InformationOrdered By: Alfredo Phipps on 10-14-2023 Estimated GFR (MDRD) Amer 41 mL/min >60 [facility] Comment on above: GFR Calc Estimated GFR (MDRD) Non-Af Amer 34 mL/min >60 [facility] Comment on above: Non- GFR Calc [place] Level 0.50 mmol/L 0.60-1.20 [facility] Platelets bldOrdered By: Jennifer Phipps on 10-14-2023 Platelets (Bld) [#/Vol] 224 10*3/uL 150-450 [facility] Serum or plasma albumin you urement (mass/volume)Ordered By: Alfredo Phipps on 10-14-2023 Albumin [Mass/Vol] 2.9 g/dL 3.2-5.0 [facility] Serum or plasma calcium you urement (mass/volume)Ordered By: Alfredo Phipps on 10-14-2023 Calcium [Mass/Vol] 8.5 mg/dL 8.5-10.1 [facility] Serum or plasma creatinine m easurement (mass/volume)Ordered By: Alfredo Phipps on 10-14-2023 Creatinine [Mass/Vol] 2.12 mg/dL 0.70-1.30 [facility] Comment on above: The validity of the calculated GFR & GFRAA in patients over 70 years has not been determined. Clinical correlation is essential. Serum or plasma urea nitroge n measurement (mass/volume)Ordered By: Alfredo Phipps on 10-14-2023 Urea nitrogen [Mass/Vol] 16 mg/dL 7-18 [facility] Urine creatinine measurement (mass/volume)Ordered By: Alfredo Phipps on 10-14-2023 Creatinine (U) [Mass/Vol] 195.00 mg/dL NO RANGE EST. [facility] Urine protein measurement (m ass/volume)Ordered By: Alfredo Phipps on 10-14-2023 Protein (U) [Mass/Vol] 23.4 mg/dL 0.0-11.8 [facility] Urine protein/creatinine mas s ratioOrdered By: Alfredo Phipps on 10-14-2023 Protein/Creatinine (U) [Mass ratio] 120 mg/g CRE 0-200 [facility] Serum or plasma uric acid me asurement (mass/volume)Ordered By: Adam Ferraro on 09-27-2023 Urate [Mass/Vol] 7.3 mg/dL 3.5-7.2 [facility] Comment on above: The drugs N-Acetylcy steine and Metamizole may falsely depress this assay. Absolute lymphocyte countOrd ered By: Alfredo Phipps on 09-16-2023 Lymphocytes Auto (Unsp spec) [#/Vol] 1.78 10*3/uL 0.83-4.51 [facility] Basophil percentageOrdered B y: Alfredo Phipps on 09-16-2023 Basophil percentage 4.3 mg/dL 2.5-4.9 [facility] Basophils/100 WBC (Bld) 1.0 % 0-1 [facility] Chloride [Moles/Vol] 109 mmol/L 98-107 [facility] Eosinophils/100 WBC (Bld) 4.4 % 0-5 [facility] Glucose [Mass/Vol] 143 mg/dL 74-106 [facility] Comment on above: Fasting Glucose resu lt greater than or equal to 126 mg/dL suggests DIABETES MELLITUS per A.D.A. criteria. Neutrophils (Bld) [#/Vol] 6.3 10*3/uL 2.0-7.7 [facility] Neutrophils/100 WBC (Bld) 67.0 % 47-70 [facility] Potassium [Moles/Vol] 4.1 mmol/L 3.5-5.1 [facility] Sodium [Moles/Vol] 139 mmol/L 136-145 [facility] WBC (Bld) [#/Vol] 9.4 10*3/uL 4.4-11.0 [facility] Blood erythrocytes count (nu mber/volume)Ordered By: Alfredo Phipps on 09-16-2023 RBC (Bld) [#/Vol] 4.63 10*6/uL 4.6-6.2 [facility] Blood hemoglobin measurement (mass/volume)Ordered By: Alfredo Phipps on 09-16-2023 Hemoglobin (Bld) [Mass/Vol] 13.4 g/dL 13.0-16.5 [facility] Blood lymphocytes/100 leukoc ytesOrdered By: Alfredo Phipps on 09-16-2023 Lymphocytes/100 WBC (Bld) 19.0 % 19-41 [facility] Blood monocytes/100 leukocyt esOrdered By: Alfredo Phipps on 09-16-2023 Monocytes/100 WBC (Bld) 8.3 % 0-10 [facility] Blood platelet mean volumeOr dered By: Alfredo Phipps on 09-16-2023 Platelet mean volume (Bld) [Entitic vol] 9.6 fL 6.2-12.0 [facility] Determination of erythrocyte mean corpuscular volume (MCV)Ordered By: Alfredo Phipps on 09-16-2023 MCV (RBC) [Entitic vol] 90.5 fL 80-94 [facility] Hematocrit Auto (Bld) [Volum e fraction]Ordered By: Alfredo Phipps on 09-16-2023 Hematocrit (Bld) [Volume fraction] 41.9 % 40-54 [facility] Laboratory - Chemistry and C hemistry - challengeOrdered By: Alfredo Phipps on 09-16-2023 CO2 [Moles/Vol] 23.0 mmol/L 21.0-32.0 [facility] Urea nitrogen/Creatinine [Mass ratio] 11.6 mg/mg 10-20 [facility] Laboratory - Hematology and Cell countsOrdered By: Alfredo Phipps on 09-16-2023 Erythrocyte distribution width (RBC) [Entitic vol] 46.1 fL 35.1-43.9 [facility] Erythrocyte distribution width (RBC) [Ratio] 13.9 % 11.6-14.6 [facility] Immature granulocytes/100 WBC (Bld) 0.300 % 0.0-0.9 [facility] Comment on above: IG% - Immature Granu locytes (promyelocytes, myelocytes and metamyelocytes) > 1% indicates that a LEFT SHIFT is Present. MCH (RBC) [Entitic mass] 28.9 pg 27.0-32.0 [facility] Nucleated RBC/100 WBC (Bld) [Ratio] 0 % 0-5 [facility] ([facility] [Mass/Vol]Or dered By: Alfredo Phipps on 09-16-2023 MCHC (RBC) [Mass/Vol] 32.0 g/dL 32-36 [facility] No Panel InformationOrdered By: Alfredo Phipps on 09-16-2023 Estimated GFR (MDRD) Amer 45 mL/min >60 [facility] Comment on above: GFR Calc Estimated GFR (MDRD) Non-Af Amer 37 mL/min >60 [facility] Comment on above: Non- GFR Calc [place] Level 0.60 mmol/L 0.60-1.20 [facility] Platelets bldOrdered By: Jennifer Phipps on 09-16-2023 Platelets (Bld) [#/Vol] 212 10*3/uL 150-450 [facility] Serum or plasma albumin you urement (mass/volume)Ordered By: Alfredo Phipps on 09-16-2023 Albumin [Mass/Vol] 2.9 g/dL 3.2-5.0 [facility] Serum or plasma calcium you urement (mass/volume)Ordered By: Alfredo Phipps on 09-16-2023 Calcium [Mass/Vol] 9.0 mg/dL 8.5-10.1 [facility] Serum or plasma creatinine m easurement (mass/volume)Ordered By: Alfredo Phipps on 09-16-2023 Creatinine [Mass/Vol] 1.98 mg/dL 0.70-1.30 [facility] Comment on above: The validity of the calculated GFR & GFRAA in patients over 70 years has not been determined. Clinical correlation is essential. Serum or plasma urea nitroge n measurement (mass/volume)Ordered By: Alfredo Phipps on 09-16-2023 Urea nitrogen [Mass/Vol] 23 mg/dL 7-18 [facility] Urine creatinine measurement (mass/volume)Ordered By: Alfredo Phipps on 09-16-2023 Creatinine (U) [Mass/Vol] 44.20 mg/dL NO RANGE EST. [facility] Urine protein measurement (m ass/volume)Ordered By: Alfredo Phipps on 09-16-2023 Protein (U) [Mass/Vol] mg/dL 0.0-11.8 [facility] Urine protein/creatinine mas s ratioOrdered By: Alfredo Phipps on 09-16-2023 Protein/Creatinine (U) [Mass ratio] 131 mg/g CRE 0-200 [facility] Urine creatinine measurement (mass/volume)Ordered By: Adam Ferraro on 08-22-2023 Creatinine (U) [Mass/Vol] 105.00 mg/dL NO RANGE EST. [facility] Urine protein measurement (m ass/volume)Ordered By: Adam Ferraro on 08-22-2023 Protein (U) [Mass/Vol] 19.3 mg/dL 0.0-11.8 [facility] Urine protein/creatinine mas s ratioOrdered By: Adam Ferraro on 08-22-2023 Protein/Creatinine (U) [Mass ratio] 184 mg/g CRE 0-200 [facility] Absolute lymphocyte countOrd ered By: Adam Ferraro on 08-19-2023 Lymphocytes Auto (Unsp spec) [#/Vol] 2.02 10*3/uL 0.83-4.51 [facility] Basophil percentageOrdered B y: Adam Ferraro on 08-19-2023 Basophil percentage 4.0 mg/dL 2.5-4.9 [facility] Basophils/100 WBC (Bld) 0.7 % 0-1 [facility] Chloride [Moles/Vol] 108 mmol/L 98-107 [facility] Eosinophils/100 WBC (Bld) 4.4 % 0-5 [facility] Glucose [Mass/Vol] 161 mg/dL 74-106 [facility] Comment on above: Fasting Glucose resu lt greater than or equal to 126 mg/dL suggests DIABETES MELLITUS per A.D.A. criteria. Neutrophils (Bld) [#/Vol] 7.4 10*3/uL 2.0-7.7 [facility] Neutrophils/100 WBC (Bld) 66.8 % 47-70 [facility] Potassium [Moles/Vol] 3.9 mmol/L 3.5-5.1 [facility] Sodium [Moles/Vol] 140 mmol/L 136-145 [facility] WBC (Bld) [#/Vol] 11.1 10*3/uL 4.4-11.0 [facility] Blood erythrocytes count (nu mber/volume)Ordered By: Adam Ferraro on 08-19-2023 RBC (Bld) [#/Vol] 4.67 10*6/uL 4.6-6.2 [facility] Blood hemoglobin measurement (mass/volume)Ordered By: Adam Ferraro on 08-19-2023 Hemoglobin (Bld) [Mass/Vol] 13.5 g/dL 13.0-16.5 [facility] Blood lymphocytes/100 leukoc ytesOrdered By: Adam Ferraro on 08-19-2023 Lymphocytes/100 WBC (Bld) 18.3 % 19-41 [facility] Blood monocytes/100 leukocyt esOrdered By: Adam Ferraro on 08-19-2023 Monocytes/100 WBC (Bld) 9.1 % 0-10 [facility] Blood platelet mean volumeOr dered By: Adam Ferraro on 08-19-2023 Platelet mean volume (Bld) [Entitic vol] 9.4 fL 6.2-12.0 [facility] Determination of erythrocyte mean corpuscular volume (MCV)Ordered By: Adam Ferraro on 08-19-2023 MCV (RBC) [Entitic vol] 90.1 fL 80-94 [facility] Hematocrit Auto (Bld) [Volum e fraction]Ordered By: Adam Ferraro on 08-19-2023 Hematocrit (Bld) [Volume fraction] 42.1 % 40-54 [facility] Laboratory - Chemistry and C hemistry - challengeOrdered By: Adam Ferraro on 08-19-2023 CO2 [Moles/Vol] 26.0 mmol/L 21.0-32.0 [facility] Urea nitrogen/Creatinine [Mass ratio] 10.9 mg/mg 10-20 [facility] - Hematology and Cell countsOrdered By: Adam Ferraro on 08-19-2023 Erythrocyte distribution width (RBC) [Entitic vol] 45.8 fL 35.1-43.9 [facility] Erythrocyte distribution width (RBC) [Ratio] 13.8 % 11.6-14.6 [facility] Immature granulocytes/100 WBC (Bld) 0.700 % 0.0-0.9 [facility] Comment on above: IG% - Immature Granu locytes (promyelocytes, myelocytes and metamyelocytes) > 1% indicates that a LEFT SHIFT is Present. MCH (RBC) [Entitic mass] 28.9 pg 27.0-32.0 [facility] Nucleated RBC/100 WBC (Bld) [Ratio] 0 % 0-5 [facility] MCHC Auto (RBC) [Mass/Vol]Or dered By: Adam Ferraro on 08-19-2023 MCHC (RBC) [Mass/Vol] 32.1 g/dL 32-36 [facility] No Panel InformationOrdered By: Adam Ferraro on 08-19-2023 Estimated GFR (MDRD) Amer 44 mL/min >60 [facility] Comment on above: GFR Calc Estimated GFR (MDRD) Non-Af Amer 36 mL/min >60 [facility] Comment on above: Non- GFR Calc [place] Level 0.50 mmol/L 0.60-1.20 [facility] Platelets bldOrdered By: Benoit Ferraro on 08-19-2023 Platelets (Bld) [#/Vol] 218 10*3/uL 150-450 [facility] Serum or plasma albumin you urement (mass/volume)Ordered By: Adam Ferraro on 08-19-2023 Albumin [Mass/Vol] 2.9 g/dL 3.2-5.0 [facility] Serum or plasma calcium you urement (mass/volume)Ordered By: Adam Ferraro on 08-19-2023 Calcium [Mass/Vol] 9.0 mg/dL 8.5-10.1 [facility] Serum or plasma creatinine m easurement (mass/volume)Ordered By: Adam Ferraro on 08-19-2023 Creatinine [Mass/Vol] 2.01 mg/dL 0.70-1.30 [facility] Comment on above: The validity of the calculated GFR & GFRAA in patients over 70 years has not been determined. Clinical correlation is essential. Serum or plasma urea nitroge n measurement (mass/volume)Ordered By: Adam Ferraro on 08-19-2023 Urea nitrogen [Mass/Vol] 22 mg/dL 7-18 [facility] Whole blood hemoglobin A1c/t otal hemoglobin ratio (mass fraction)Ordered By: Adam Ferraro on 08-19-2023 HbA1c (Bld) [Mass fraction] 7.2 % 3.8-5.6 [facility] Comment on above: Normal < 5.7 % Predi abetic 5.7 - 6.4 % Diabetic >or= 6.5 % Please note range changes. Basophil percentageOrdered B y: Adam Ferraro on 07-28-2023 Cholesterol [Mass/Vol] 124 mg/dL <200 [facility] Comment on above: <200 mg/dL Desirable 200-240 mg/dL Borderline >240 mg/dL High Risk Triglyceride [Mass/Vol] 234 mg/dL <199 [facility] Comment on above: The drugs N-Acetylcy steine and Metamizole may falsely depress this assay.Serum Triglycerides Reference Interval Normal <150 mg/dL Borderline high 150 - 199 mg/dL High 200 - 499 mg/dL Very High > or = 500 mg/dL Serum or plasma cholesterol in HDL measurement (mass/volume)Ordered By: Adam Ferraro on 07-28-2023 Cholesterol in HDL [Mass/Vol] 36 mg/dL >40 [facility] Comment on above: The drugs N-Acetylcy steine and Metamizole may falsely depress this assay. Reference Range HDL <40 mg/dL Low HDL Cholesterol HDL >or= 60 mg/dL High HDL Cholesterol Serum or plasma cholesterol in VLDL measurement (mass/volume)Ordered By: Adam Ferraro on 07-28-2023 Cholesterol in VLDL [Mass/Vol] 47 mg/dL 5-40 [facility] Serum or plasma low density lipoprotein (LDL) cholesterol measurement (mass/volume)Ordered By: Adam Ferraro on 07-28-2023 Cholesterol in LDL [Mass/Vol] 41 mg/dL 0-130 [facility] Serum or plasma uric acid me asurement (mass/volume)Ordered By: Adam Ferraro on 07-28-2023 Urate [Mass/Vol] 6.6 mg/dL 3.5-7.2 [facility] Comment on above: The drugs N-Acetylcy steine and Metamizole may falsely depress this assay. Urine creatinine measurement (mass/volume)Ordered By: Adam Ferraro on 07-24-2023 Creatinine (U) [Mass/Vol] 113.00 mg/dL NO RANGE EST. [facility] Urine protein measurement (m ass/volume)Ordered By: Adam Ferraro on 07-24-2023 Protein (U) [Mass/Vol] 15.1 mg/dL 0.0-11.8 [facility] Urine protein/creatinine mas s ratioOrdered By: Adam Ferraro on 07-24-2023 Protein/Creatinine (U) [Mass ratio] 134 mg/g CRE 0-200 [facility] Absolute lymphocyte countOrd ered By: Alfredo Phipps on 07-22-2023 Lymphocytes Auto (Unsp spec) [#/Vol] 1.60 10*3/uL 0.83-4.51 [facility] Basophil percentageOrdered B y: Alfredo Phipps on 07-22-2023 Basophil percentage 4.2 mg/dL 2.5-4.9 [facility] Basophils/100 WBC (Bld) 1.1 % 0-1 [facility] Chloride [Moles/Vol] 108 mmol/L 98-107 [facility] Eosinophils/100 WBC (Bld) 2.7 % 0-5 [facility] Glucose [Mass/Vol] 138 mg/dL 74-106 [facility] Comment on above: Fasting Glucose resu lt greater than or equal to 126 mg/dL suggests DIABETES MELLITUS per A.D.A. criteria. Neutrophils (Bld) [#/Vol] 6.9 10*3/uL 2.0-7.7 [facility] Neutrophils/100 WBC (Bld) 69.3 % 47-70 [facility] Potassium [Moles/Vol] 3.8 mmol/L 3.5-5.1 [facility] Sodium [Moles/Vol] 135 mmol/L 136-145 [facility] WBC (Bld) [#/Vol] 9.9 10*3/uL 4.4-11.0 [facility] Blood erythrocytes count (nu mber/volume)Ordered By: Alfredo Phipps on 07-22-2023 RBC (Bld) [#/Vol] 4.79 10*6/uL 4.6-6.2 [facility] Blood hemoglobin measurement (mass/volume)Ordered By: Alfredo Phipps on 07-22-2023 Hemoglobin (Bld) [Mass/Vol] 13.6 g/dL 13.0-16.5 [facility] Blood lymphocytes/100 leukoc ytesOrdered By: Alfredo Phipps on 07-22-2023 Lymphocytes/100 WBC (Bld) 16.1 % 19-41 [facility] Blood monocytes/100 leukocyt esOrdered By: Alfredo Phipps on 07-22-2023 Monocytes/100 WBC (Bld) 10.2 % 0-10 [facility] Blood platelet mean volumeOr dered By: Alfredo Phpips on 07-22-2023 Platelet mean volume (Bld) [Entitic vol] 10.8 fL 6.2-12.0 [facility] Determination of erythrocyte mean corpuscular volume (MCV)Ordered By: Alfredo Phipps on 07-22-2023 MCV (RBC) [Entitic vol] 98.1 fL 80-94 [facility] Hematocrit Auto (Bld) [Volum e fraction]Ordered By: Alfredo Phipps on 07-22-2023 Hematocrit (Bld) [Volume fraction] 47.0 % 40-54 [facility] - Chemistry and C hemistry - challengeOrdered By: Alfredo Phipps on 07-22-2023 CO2 [Moles/Vol] 19.0 mmol/L 21.0-32.0 [facility] Urea nitrogen/Creatinine [Mass ratio] 10.7 mg/mg 10-20 [facility] - Hematology and Cell countsOrdered By: Alfredo Phipps on 07-22-2023 Erythrocyte distribution width (RBC) [Entitic vol] 58.0 fL 35.1-43.9 [facility] Erythrocyte distribution width (RBC) [Ratio] 16.4 % 11.6-14.6 [facility] Immature granulocytes/100 WBC (Bld) 0.600 % 0.0-0.9 [facility] Comment on above: IG% - Immature Granu locytes (promyelocytes, myelocytes and metamyelocytes) > 1% indicates that a LEFT SHIFT is Present. MCH (RBC) [Entitic mass] 28.4 pg 27.0-32.0 [facility] Nucleated RBC/100 WBC (Bld) [Ratio] 0 % 0-5 [facility] MCHC Auto (RBC) [Mass/Vol]Or dered By: Alfredo Phipps on 07-22-2023 MCHC (RBC) [Mass/Vol] 28.9 g/dL 32-36 [facility] No Panel InformationOrdered By: Alfredo Phipps on 07-22-2023 Estimated GFR (MDRD) Amer 45 mL/min >60 [facility] Comment on above: GFR Calc Estimated GFR (MDRD) Non-Af Amer 37 mL/min >60 [facility] Comment on above: Non- GFR Calc [place] Level 0.60 mmol/L 0.60-1.20 [facility] Platelets bldOrdered By: Pet shonda Phipps on 07-22-2023 Platelets (Bld) [#/Vol] 209 10*3/uL 150-450 [facility] Serum or plasma albumin you urement (mass/volume)Ordered By: Alfredo Phipps on 07-22-2023 Albumin [Mass/Vol] 2.6 g/dL 3.2-5.0 [facility] Serum or plasma calcium you urement (mass/volume)Ordered By: Alfredo Phipps on 07-22-2023 Calcium [Mass/Vol] 9.1 mg/dL 8.5-10.1 [facility] Serum or plasma creatinine m easurement (mass/volume)Ordered By: Alfredo Phipps on 07-22-2023 Creatinine [Mass/Vol] 1.97 mg/dL 0.70-1.30 [facility] Comment on above: The validity of the calculated GFR & GFRAA in patients over 70 years has not been determined. Clinical correlation is essential. Serum or plasma urea nitroge n measurement (mass/volume)Ordered By: Alfredo Phipps on 07-22-2023 Urea nitrogen [Mass/Vol] 21 mg/dL 7-18 [facility] Absolute lymphocyte countOrd ered By: Alfredo Phipps on 06-24-2023 Lymphocytes Auto (Unsp spec) [#/Vol] 2.04 10*3/uL 0.83-4.51 [facility] Basophil percentageOrdered B y: Alfredo Phipps on 06-24-2023 Basophil percentage 4.4 mg/dL 2.5-4.9 [facility] Basophils/100 WBC (Bld) 1.2 % 0-1 [facility] Chloride [Moles/Vol] 107 mmol/L 98-107 [facility] Eosinophils/100 WBC (Bld) 5.2 % 0-5 [facility] Glucose [Mass/Vol] 144 mg/dL 74-106 [facility] Comment on above: Fasting Glucose resu lt greater than or equal to 126 mg/dL suggests DIABETES MELLITUS per A.D.A. criteria. Neutrophils (Bld) [#/Vol] 5.9 10*3/uL 2.0-7.7 [facility] Neutrophils/100 WBC (Bld) 62.3 % 47-70 [facility] Potassium [Moles/Vol] 3.7 mmol/L 3.5-5.1 [facility] Sodium [Moles/Vol] 138 mmol/L 136-145 [facility] WBC (Bld) [#/Vol] 9.4 10*3/uL 4.4-11.0 [facility] Blood erythrocytes count (nu mber/volume)Ordered By: Alfredo Phipps on 06-24-2023 RBC (Bld) [#/Vol] 4.95 10*6/uL 4.6-6.2 [facility] Blood hemoglobin measurement (mass/volume)Ordered By: Alfredo Phipps on 06-24-2023 Hemoglobin (Bld) [Mass/Vol] 14.2 g/dL 13.0-16.5 [facility] Blood lymphocytes/100 leukoc ytesOrdered By: Alfredo Phipps on 06-24-2023 Lymphocytes/100 WBC (Bld) 21.7 % 19-41 [facility] Blood monocytes/100 leukocyt esOrdered By: Alfredo Phipps on 06-24-2023 Monocytes/100 WBC (Bld) 9.1 % 0-10 [facility] Blood platelet mean volumeOr dered By: Alfredo Phipps on 06-24-2023 Platelet mean volume (Bld) [Entitic vol] 9.8 fL 6.2-12.0 [facility] Determination of erythrocyte mean corpuscular volume (MCV)Ordered By: Alfredo Phipps on 06-24-2023 MCV (RBC) [Entitic vol] 88.5 fL 80-94 [facility] Hematocrit Auto (Bld) [Volum e fraction]Ordered By: Alfredo Phipps on 06-24-2023 Hematocrit (Bld) [Volume fraction] 43.8 % 40-54 [facility] - Chemistry and C hemistry - challengeOrdered By: Alfredo Phipps on 06-24-2023 CO2 [Moles/Vol] 25.0 mmol/L 21.0-32.0 [facility] Urea nitrogen/Creatinine [Mass ratio] 11.5 mg/mg 10-20 [facility] - Hematology and Cell countsOrdered By: Alfredo Phipps on 06-24-2023 Erythrocyte distribution width (RBC) [Entitic vol] 42.3 fL 35.1-43.9 [facility] Erythrocyte distribution width (RBC) [Ratio] 13.1 % 11.6-14.6 [facility] Immature granulocytes/100 WBC (Bld) 0.500 % 0.0-0.9 [facility] Comment on above: IG% - Immature Granu locytes (promyelocytes, myelocytes and metamyelocytes) > 1% indicates that a LEFT SHIFT is Present. MCH (RBC) [Entitic mass] 28.7 pg 27.0-32.0 [facility] Nucleated RBC/100 WBC (Bld) [Ratio] 0 % 0-5 [facility] MCHC Auto (RBC) [Mass/Vol]Or dered By: Alfredo Phipps on 06-24-2023 MCHC (RBC) [Mass/Vol] 32.4 g/dL 32-36 [facility] No Panel InformationOrdered By: Alfredo Phipps on 06-24-2023 Estimated GFR (MDRD) Amer 49 mL/min >60 [facility] Comment on above: GFR Calc Estimated GFR (MDRD) Non-Af Amer 40 mL/min >60 [facility] Comment on above: Non- GFR Calc [place] Level 0.60 mmol/L 0.60-1.20 [facility] Platelets bldOrdered By: Jennifer Phipps on 06-24-2023 Platelets (Bld) [#/Vol] 213 10*3/uL 150-450 [facility] Serum or plasma albumin you urement (mass/volume)Ordered By: Alfredo Phipps on 06-24-2023 Albumin [Mass/Vol] 2.9 g/dL 3.2-5.0 [facility] Serum or plasma calcium you urement (mass/volume)Ordered By: Alfredo Phipps on 06-24-2023 Calcium [Mass/Vol] 9.1 mg/dL 8.5-10.1 [facility] Serum or plasma creatinine m easurement (mass/volume)Ordered By: Alfredo Phipps on 06-24-2023 Creatinine [Mass/Vol] 1.83 mg/dL 0.70-1.30 [facility] Comment on above: The validity of the calculated GFR & GFRAA in patients over 70 years has not been determined. Clinical correlation is essential. Serum or plasma urea nitroge n measurement (mass/volume)Ordered By: Alfredo Phipps on 06-24-2023 Urea nitrogen [Mass/Vol] 21 mg/dL 7-18 [facility] Serum or plasma uric acid me asurement (mass/volume)Ordered By: Alfredo Phipps on 06-24-2023 Urate [Mass/Vol] 6.5 mg/dL 3.5-7.2 [facility] Comment on above: The drugs N-Acetylcy steine and Metamizole may falsely depress this assay. Urine creatinine measurement (mass/volume)Ordered By: Alfredo Phipps on 06-24-2023 Creatinine (U) [Mass/Vol] 127.00 mg/dL NO RANGE EST. [facility] Urine protein measurement (m ass/volume)Ordered By: Alfredo Pihpps on 06-24-2023 Protein (U) [Mass/Vol] 19.9 mg/dL 0.0-11.8 [facility] Urine protein/creatinine mas s ratioOrdered By: Alfredo Phipps on 06-24-2023 Protein/Creatinine (U) [Mass ratio] 157 mg/g CRE 0-200 [facility] Urine creatinine measurement (mass/volume)Ordered By: Adam Ferraro on 05-30-2023 Creatinine (U) [Mass/Vol] 73.90 mg/dL NO RANGE EST. [facility] Urine protein measurement (m ass/volume)Ordered By: Adam Ferraro on 05-30-2023 Protein (U) [Mass/Vol] 18.0 mg/dL 0.0-11.8 [facility] Urine protein/creatinine mas s ratioOrdered By: Adam Ferraro on 07-17-2023 Protein/Creatinine (U) [Mass ratio] 244 mg/g CRE 0-200 [facility] Absolute lymphocyte countOrd ered By: Adam Ferraro on 05-27-2023 Lymphocytes Auto (Unsp spec) [#/Vol] 1.85 10*3/uL 0.83-4.51 [facility] Basophil percentageOrdered B y: Adam Ferraro on 05-27-2023 Basophil percentage 3.9 mg/dL 2.5-4.9 [facility] Basophils/100 WBC (Bld) 1.1 % 0-1 [facility] Chloride [Moles/Vol] 106 mmol/L 98-107 [facility] Eosinophils/100 WBC (Bld) 3.3 % 0-5 [facility] Glucose [Mass/Vol] 208 mg/dL 74-106 [facility] Comment on above: Glucose result great er than or equal to 200 mg/dLsuggests DIABETES MELLITUS per A.D.A. criteria. Neutrophils (Bld) [#/Vol] 5.6 10*3/uL 2.0-7.7 [facility] Neutrophils/100 WBC (Bld) 64.5 % 47-70 [facility] Potassium [Moles/Vol] 3.7 mmol/L 3.5-5.1 [facility] Sodium [Moles/Vol] 138 mmol/L 136-145 [facility] WBC (Bld) [#/Vol] 8.7 10*3/uL 4.4-11.0 [facility] Blood erythrocytes count (nu mber/volume)Ordered By: Adam Ferraro on 05-27-2023 RBC (Bld) [#/Vol] 4.98 10*6/uL 4.6-6.2 [facility] Blood hemoglobin measurement (mass/volume)Ordered By: Adam Ferraro on 05-27-2023 Hemoglobin (Bld) [Mass/Vol] 14.4 g/dL 13.0-16.5 [facility] Blood lymphocytes/100 leukoc ytesOrdered By: Adam Ferraro on 05-27-2023 Lymphocytes/100 WBC (Bld) 21.2 % 19-41 [facility] Blood monocytes/100 leukocyt esOrdered By: Adam Ferraro on 05-27-2023 Monocytes/100 WBC (Bld) 9.3 % 0-10 [facility] Blood platelet mean volumeOr dered By: Adam Ferraro on 05-27-2023 Platelet mean volume (Bld) [Entitic vol] 10.0 fL 6.2-12.0 [facility] Determination of erythrocyte mean corpuscular volume (MCV)Ordered By: Adam Ferraro on 05-27-2023 MCV (RBC) [Entitic vol] 89.6 fL 80-94 [facility] Hematocrit Auto (Bld) [Volum e fraction]Ordered By: Adam Ferraro on 05-27-2023 Hematocrit (Bld) [Volume fraction] 44.6 % 40-54 [facility] - Chemistry and C hemistry - challengeOrdered By: Adam Ferraro on 05-27-2023 CO2 [Moles/Vol] 27.0 mmol/L 21.0-32.0 [facility] Urea nitrogen/Creatinine [Mass ratio] 11.5 mg/mg 10-20 [facility] - Hematology and Cell countsOrdered By: Adam Ferraro on 05-27-2023 Erythrocyte distribution width (RBC) [Entitic vol] 42.2 fL 35.1-43.9 [facility] Erythrocyte distribution width (RBC) [Ratio] 13.0 % 11.6-14.6 [facility] Immature granulocytes/100 WBC (Bld) 0.600 % 0.0-0.9 [facility] Comment on above: IG% - Immature Granu locytes (promyelocytes, myelocytes and metamyelocytes) > 1% indicates that a LEFT SHIFT is Present. MCH (RBC) [Entitic mass] 28.9 pg 27.0-32.0 [facility] Nucleated RBC/100 WBC (Bld) [Ratio] 0 % 0-5 [facility] MCHC Auto (RBC) [Mass/Vol]Or dered By: Adam Ferraro on 05-27-2023 MCHC (RBC) [Mass/Vol] 32.3 g/dL 32-36 [facility] No Panel InformationOrdered By: Adam Ferraro on 05-27-2023 Estimated GFR (MDRD) Amer 52 mL/min >60 [facility] Comment on above: GFR Calc Estimated GFR (MDRD) Non-Af Amer 43 mL/min >60 [facility] Comment on above: Non- GFR Calc [place] Level 0.40 mmol/L 0.60-1.20 [facility] Platelets bldOrdered By: Benoit Ferraro on 05-27-2023 Platelets (Bld) [#/Vol] 211 10*3/uL 150-450 [facility] Serum or plasma albumin you urement (mass/volume)Ordered By: Adam Ferraro on 05-27-2023 Albumin [Mass/Vol] 2.9 g/dL 3.2-5.0 [facility] Serum or plasma calcium you urement (mass/volume)Ordered By: Adam Ferraro on 05-27-2023 Calcium [Mass/Vol] 9.2 mg/dL 8.5-10.1 [facility] Serum or plasma creatinine m easurement (mass/volume)Ordered By: Adam Ferraro on 05-27-2023 Creatinine [Mass/Vol] 1.74 mg/dL 0.70-1.30 [facility] Comment on above: The validity of the calculated GFR & GFRAA in patients over 70 years has not been determined. Clinical correlation is essential. Serum or plasma urea nitroge n measurement (mass/volume)Ordered By: Adam Ferraro on 05-27-2023 Urea nitrogen [Mass/Vol] 20 mg/dL 7-18 [facility] Serum or plasma uric acid me asurement (mass/volume)Ordered By: Adam Ferraro on 05-27-2023 Urate [Mass/Vol] 4.9 mg/dL 3.5-7.2 [facility] Comment on above: The drugs N-Acetylcy steine and Metamizole may falsely depress this assay. Whole blood hemoglobin A1c/t otal hemoglobin ratio (mass fraction)Ordered By: Adam Ferraro on 05-19-2023 HbA1c (Bld) [Mass fraction] 11.1 % 3.8-5.6 [facility] Comment on above: Normal < 5.7 % Predi abetic 5.7 - 6.4 % Diabetic >or= 6.5 % Please note range changes. Absolute lymphocyte countOrd ered By: Alfredo Phipps on 04-29-2023 Lymphocytes Auto (Unsp spec) [#/Vol] 1.98 10*3/uL 0.83-4.51 [facility] Basophil percentageOrdered B y: Alfredo Phipps on 04-29-2023 Basophil percentage 3.6 mg/dL 2.5-4.9 [facility] Basophils/100 WBC (Bld) 1.0 % 0-1 [facility] Chloride [Moles/Vol] 105 mmol/L 98-107 [facility] Eosinophils/100 WBC (Bld) 2.7 % 0-5 [facility] Glucose [Mass/Vol] 300 mg/dL 74-106 [facility] Comment on above: Glucose result great er than or equal to 200 mg/dLsuggests DIABETES MELLITUS per A.D.A. criteria. Neutrophils (Bld) [#/Vol] 5.7 10*3/uL 2.0-7.7 [facility] Neutrophils/100 WBC (Bld) 64.2 % 47-70 [facility] Potassium [Moles/Vol] 3.9 mmol/L 3.5-5.1 [facility] Sodium [Moles/Vol] 138 mmol/L 136-145 [facility] WBC (Bld) [#/Vol] 8.9 10*3/uL 4.4-11.0 [facility] Blood erythrocytes count (nu mber/volume)Ordered By: Alfredo Phipps on 04-29-2023 RBC (Bld) [#/Vol] 4.74 10*6/uL 4.6-6.2 [facility] Blood hemoglobin measurement (mass/volume)Ordered By: Alfredo Phipps on 04-29-2023 Hemoglobin (Bld) [Mass/Vol] 13.6 g/dL 13.0-16.5 [facility] Blood lymphocytes/100 leukoc ytesOrdered By: Alfredo Phipps on 04-29-2023 Lymphocytes/100 WBC (Bld) 22.2 % 19-41 [facility] Blood monocytes/100 leukocyt esOrdered By: Alfredo Phipps on 04-29-2023 Monocytes/100 WBC (Bld) 9.2 % 0-10 [facility] Blood platelet mean volumeOr dered By: Alfredo Phipps on 04-29-2023 Platelet mean volume (Bld) [Entitic vol] 9.7 fL 6.2-12.0 [facility] Determination of erythrocyte mean corpuscular volume (MCV)Ordered By: Alfredo Phipps on 04-29-2023 MCV (RBC) [Entitic vol] 87.8 fL 80-94 [facility] Hematocrit Auto (Bld) [Volum e fraction]Ordered By: Alfredo Phipps on 04-29-2023 Hematocrit (Bld) [Volume fraction] 41.6 % 40-54 [facility] - Chemistry and C hemistry - challengeOrdered By: Alfredo Phipps on 04-29-2023 CO2 [Moles/Vol] 24.0 mmol/L 21.0-32.0 [facility] Urea nitrogen/Creatinine [Mass ratio] 13.7 mg/mg 10-20 [facility] - Hematology and Cell countsOrdered By: Alfredo Phipps on 04-29-2023 Erythrocyte distribution width (RBC) [Entitic vol] 41.7 fL 35.1-43.9 [facility] Erythrocyte distribution width (RBC) [Ratio] 12.9 % 11.6-14.6 [facility] Immature granulocytes/100 WBC (Bld) 0.700 % 0.0-0.9 [facility] Comment on above: IG% - Immature Granu locytes (promyelocytes, myelocytes and metamyelocytes) > 1% indicates that a LEFT SHIFT is Present. MCH (RBC) [Entitic mass] 28.7 pg 27.0-32.0 [facility] Nucleated RBC/100 WBC (Bld) [Ratio] 0 % 0-5 [facility] MCHC Auto (RBC) [Mass/Vol]Or dered By: Alfredo Phipps on 04-29-2023 MCHC (RBC) [Mass/Vol] 32.7 g/dL 32-36 [facility] No Panel InformationOrdered By: Alfredo Phipps on 04-29-2023 Estimated GFR (MDRD) Amer 51 mL/min >60 [facility] Comment on above: GFR Calc Estimated GFR (MDRD) Non-Af Amer 43 mL/min >60 [facility] Comment on above: Non- GFR Calc [place] Level 0.40 mmol/L 0.60-1.20 [facility] Platelets bldOrdered By: Jennifer Phipps on 04-29-2023 Platelets (Bld) [#/Vol] 204 10*3/uL 150-450 [facility] Serum or plasma albumin you urement (mass/volume)Ordered By: Alfredo Phipps on 04-29-2023 Albumin [Mass/Vol] 2.7 g/dL 3.2-5.0 [facility] Serum or plasma calcium you urement (mass/volume)Ordered By: Alfredo Phipps on 04-29-2023 Calcium [Mass/Vol] 8.9 mg/dL 8.5-10.1 [facility] Serum or plasma creatinine m easurement (mass/volume)Ordered By: Alfredo Phipps on 04-29-2023 Creatinine [Mass/Vol] 1.75 mg/dL 0.70-1.30 [facility] Comment on above: The validity of the calculated GFR & GFRAA in patients over 70 years has not been determined. Clinical correlation is essential. Serum or plasma urea nitroge n measurement (mass/volume)Ordered By: Alfredo Phipps on 04-29-2023 Urea nitrogen [Mass/Vol] 24 mg/dL 7-18 [facility] Serum or plasma uric acid me asurement (mass/volume)Ordered By: Alfredo Phipps on 04-27-2023 Urate [Mass/Vol] 4.8 mg/dL 3.5-7.2 [facility] Comment on above: The drugs N-Acetylcy steine and Metamizole may falsely depress this assay. Urine creatinine measurement (mass/volume)Ordered By: Adam Ferraro on 04-04-2023 Creatinine (U) [Mass/Vol] 96.50 mg/dL NO RANGE EST. [facility] Urine protein measurement (m ass/volume)Ordered By: Adam Ferraro on 04-04-2023 Protein (U) [Mass/Vol] 26.4 mg/dL 0.0-11.8 [facility] Urine protein/creatinine mas s ratioOrdered By: Adam Ferraro on 04-04-2023 Protein/Creatinine (U) [Mass ratio] 274 mg/g CRE 0-200 [facility] Absolute lymphocyte countOrd ered By: Adam Ferraro on 04-01-2023 Lymphocytes Auto (Unsp spec) [#/Vol] 1.91 10*3/uL 0.83-4.51 [facility] Basophil percentageOrdered B y: Adam Ferraro on 04-01-2023 Basophil percentage 3.3 mg/dL 2.5-4.9 [facility] Basophils/100 WBC (Bld) 1.1 % 0-1 [facility] Chloride [Moles/Vol] 105 mmol/L 98-107 [facility] Eosinophils/100 WBC (Bld) 2.7 % 0-5 [facility] Glucose [Mass/Vol] 317 mg/dL 74-106 [facility] Comment on above: Glucose result great er than or equal to 200 mg/dLsuggests DIABETES MELLITUS per A.D.A. criteria. Neutrophils (Bld) [#/Vol] 5.4 10*3/uL 2.0-7.7 [facility] Neutrophils/100 WBC (Bld) 64.7 % 47-70 [facility] Potassium [Moles/Vol] 3.8 mmol/L 3.5-5.1 [facility] Sodium [Moles/Vol] 137 mmol/L 136-145 [facility] WBC (Bld) [#/Vol] 8.4 10*3/uL 4.4-11.0 [facility] Blood erythrocytes count (nu mber/volume)Ordered By: Adam Ferraro on 04-01-2023 RBC (Bld) [#/Vol] 5.17 10*6/uL 4.6-6.2 [facility] Blood hemoglobin measurement (mass/volume)Ordered By: Adam Ferraro on 04-01-2023 Hemoglobin (Bld) [Mass/Vol] 14.7 g/dL 13.0-16.5 [facility] Blood lymphocytes/100 leukoc ytesOrdered By: Adam Ferraro on 04-01-2023 Lymphocytes/100 WBC (Bld) 22.7 % 19-41 [facility] Blood monocytes/100 leukocyt esOrdered By: Adam Ferraro on 04-01-2023 Monocytes/100 WBC (Bld) 8.2 % 0-10 [facility] Blood platelet mean volumeOr dered By: Adam Ferraro on 04-01-2023 Platelet mean volume (Bld) [Entitic vol] 9.8 fL 6.2-12.0 [facility] Determination of erythrocyte mean corpuscular volume (MCV)Ordered By: Adam Ferraro on 04-01-2023 MCV (RBC) [Entitic vol] 88.6 fL 80-94 [facility] Hematocrit Auto (Bld) [Volum e fraction]Ordered By: Adam Ferraro on 04-01-2023 Hematocrit (Bld) [Volume fraction] 45.8 % 40-54 [facility] - Chemistry and C hemistry - challengeOrdered By: Adam Ferraro on 04-01-2023 CO2 [Moles/Vol] 25.0 mmol/L 21.0-32.0 [facility] Urea nitrogen/Creatinine [Mass ratio] 13.7 mg/mg 10-20 [facility] - Hematology and Cell countsOrdered By: Adam Ferraro on 04-01-2023 Erythrocyte distribution width (RBC) [Entitic vol] 42.5 fL 35.1-43.9 [facility] Erythrocyte distribution width (RBC) [Ratio] 13.1 % 11.6-14.6 [facility] Immature granulocytes/100 WBC (Bld) 0.600 % 0.0-0.9 [facility] Comment on above: IG% - Immature Granu locytes (promyelocytes, myelocytes and metamyelocytes) > 1% indicates that a LEFT SHIFT is Present. MCH (RBC) [Entitic mass] 28.4 pg 27.0-32.0 [facility] Nucleated RBC/100 WBC (Bld) [Ratio] 0 % 0-5 [facility] MCHC Auto (RBC) [Mass/Vol]Or dered By: Adam Ferraro on 04-01-2023 MCHC (RBC) [Mass/Vol] 32.1 g/dL 32-36 [facility] No Panel InformationOrdered By: Adam Ferraro on 04-01-2023 Estimated GFR (MDRD) Amer 49 mL/min >60 [facility] Comment on above: GFR Calc Estimated GFR (MDRD) Non-Af Amer 41 mL/min >60 [facility] Comment on above: Non- GFR Calc [place] Level < 0.20 mmol/L 0.60-1.20 [facility] Platelets bldOrdered By: Benoit Ferraro on 04-01-2023 Platelets (Bld) [#/Vol] 209 10*3/uL 150-450 [facility] Serum or plasma albumin you urement (mass/volume)Ordered By: Adam Ferraro on 04-01-2023 Albumin [Mass/Vol] 3.0 g/dL 3.2-5.0 [facility] Serum or plasma calcium you urement (mass/volume)Ordered By: Adam Ferraro on 04-01-2023 Calcium [Mass/Vol] 8.9 mg/dL 8.5-10.1 [facility] Serum or plasma creatinine m easurement (mass/volume)Ordered By: Adam Ferraro on 04-01-2023 Creatinine [Mass/Vol] 1.82 mg/dL 0.70-1.30 [facility] Comment on above: The validity of the calculated GFR & GFRAA in patients over 70 years has not been determined. Clinical correlation is essential. Serum or plasma urea nitroge n measurement (mass/volume)Ordered By: Adam Ferraro on 04-01-2023 Urea nitrogen [Mass/Vol] 25 mg/dL 7-18 [facility] Absolute lymphocyte countOrd ered By: Alfredo Phipps on 03-04-2023 Lymphocytes Auto (Unsp spec) [#/Vol] 2.18 10*3/uL 0.83-4.51 [facility] Basophil percentageOrdered B y: Alfredo Phipps on 03-04-2023 Basophil percentage 3.9 mg/dL 2.5-4.9 [facility] Basophils/100 WBC (Bld) 0.9 % 0-1 [facility] Chloride [Moles/Vol] 109 mmol/L 98-107 [facility] Eosinophils/100 WBC (Bld) 3.5 % 0-5 [facility] Glucose [Mass/Vol] 179 mg/dL 74-106 [facility] Comment on above: Fasting Glucose resu lt greater than or equal to 126 mg/dL suggests DIABETES MELLITUS per A.D.A. criteria. Neutrophils (Bld) [#/Vol] 6.1 10*3/uL 2.0-7.7 [facility] Neutrophils/100 WBC (Bld) 63.2 % 47-70 [facility] Potassium [Moles/Vol] 3.9 mmol/L 3.5-5.1 [facility] Sodium [Moles/Vol] 138 mmol/L 136-145 [facility] WBC (Bld) [#/Vol] 9.6 10*3/uL 4.4-11.0 [facility] Blood erythrocytes count (nu mber/volume)Ordered By: Alfredo Phipps on 03-04-2023 RBC (Bld) [#/Vol] 4.74 10*6/uL 4.6-6.2 [facility] Blood hemoglobin measurement (mass/volume)Ordered By: Alfredo Phipps on 03-04-2023 Hemoglobin (Bld) [Mass/Vol] 13.6 g/dL 13.0-16.5 [facility] Blood lymphocytes/100 leukoc ytesOrdered By: Alfredo Phipps on 03-04-2023 Lymphocytes/100 WBC (Bld) 22.6 % 19-41 [facility] Blood monocytes/100 leukocyt esOrdered By: Alfredo Phipps on 03-04-2023 Monocytes/100 WBC (Bld) 9.4 % 0-10 [facility] Blood platelet mean volumeOr dered By: Alfredo Phipps on 03-04-2023 Platelet mean volume (Bld) [Entitic vol] 9.7 fL 6.2-12.0 [facility] Determination of erythrocyte mean corpuscular volume (MCV)Ordered By: Alfredo Phipps on 03-04-2023 MCV (RBC) [Entitic vol] 90.3 fL 80-94 [facility] Hematocrit Auto (Bld) [Volum e fraction]Ordered By: Alfredo Phipps on 03-04-2023 Hematocrit (Bld) [Volume fraction] 42.8 % 40-54 [facility] - Chemistry and C hemistry - challengeOrdered By: Alfredo Phipps on 03-04-2023 CO2 [Moles/Vol] 26.0 mmol/L 21.0-32.0 [facility] Urea nitrogen/Creatinine [Mass ratio] 13.9 mg/mg 10-20 [facility] - Hematology and Cell countsOrdered By: Alfredo Phipps on 03-04-2023 Erythrocyte distribution width (RBC) [Entitic vol] 42.8 fL 35.1-43.9 [facility] Erythrocyte distribution width (RBC) [Ratio] 12.9 % 11.6-14.6 [facility] Immature granulocytes/100 WBC (Bld) 0.400 % 0.0-0.9 [facility] Comment on above: IG% - Immature Granu locytes (promyelocytes, myelocytes and metamyelocytes) > 1% indicates that a LEFT SHIFT is Present. MCH (RBC) [Entitic mass] 28.7 pg 27.0-32.0 [facility] Nucleated RBC/100 WBC (Bld) [Ratio] 0 % 0-5 [facility] MCHC Auto (RBC) [Mass/Vol]Or dered By: Alfredo Phipps on 03-04-2023 MCHC (RBC) [Mass/Vol] 31.8 g/dL 32-36 [facility] No Panel InformationOrdered By: Alfredo Phipps on 03-04-2023 Estimated GFR (MDRD) Amer 55 mL/min >60 [facility] Comment on above: GFR Calc Estimated GFR (MDRD) Non-Af Amer 46 mL/min >60 [facility] Comment on above: Non- GFR Calc [place] Level 0.40 mmol/L 0.60-1.20 [facility] Platelets bldOrdered By: Jennifer Phipps on 03-04-2023 Platelets (Bld) [#/Vol] 207 10*3/uL 150-450 [facility] Serum or plasma albumin you urement (mass/volume)Ordered By: Alfredo Phipps on 03-04-2023 Albumin [Mass/Vol] 2.8 g/dL 3.2-5.0 [facility] Serum or plasma calcium you urement (mass/volume)Ordered By: Alfredo Phipps on 03-04-2023 Calcium [Mass/Vol] 9.2 mg/dL 8.5-10.1 [facility] Serum or plasma creatinine m easurement (mass/volume)Ordered By: Alfredo Phipps on 03-04-2023 Creatinine [Mass/Vol] 1.65 mg/dL 0.70-1.30 [facility] Comment on above: The validity of the calculated GFR & GFRAA in patients over 70 years has not been determined. Clinical correlation is essential. Serum or plasma urea nitroge n measurement (mass/volume)Ordered By: Alfredo Phipps on 03-04-2023 Urea nitrogen [Mass/Vol] 23 mg/dL 7-18 [facility] Serum or plasma uric acid me asurement (mass/volume)Ordered By: Alfredo Phipps on 02-25-2023 Urate [Mass/Vol] 5.6 mg/dL 3.5-7.2 [facility] Comment on above: The drugs N-Acetylcy steine and Metamizole may falsely depress this assay. Absolute lymphocyte countOrd ered By: Alfredo Phipps on 02-04-2023 Lymphocytes Auto (Unsp spec) [#/Vol] 2.03 10*3/uL 0.83-4.51 [facility] Basophil percentageOrdered B y: Alfredo Phipps on 02-04-2023 Basophil percentage 4.3 mg/dL 2.5-4.9 [facility] Basophils/100 WBC (Bld) 1.2 % 0-1 [facility] Chloride [Moles/Vol] 108 mmol/L 98-107 [facility] Eosinophils/100 WBC (Bld) 3.6 % 0-5 [facility] Glucose [Mass/Vol] 193 mg/dL 74-106 [facility] Comment on above: Fasting Glucose resu lt greater than or equal to 126 mg/dL suggests DIABETES MELLITUS per A.D.A. criteria. Neutrophils (Bld) [#/Vol] 6.1 10*3/uL 2.0-7.7 [facility] Neutrophils/100 WBC (Bld) 63.9 % 47-70 [facility] Potassium [Moles/Vol] 4.0 mmol/L 3.5-5.1 [facility] Sodium [Moles/Vol] 139 mmol/L 136-145 [facility] WBC (Bld) [#/Vol] 9.5 10*3/uL 4.4-11.0 [facility] Blood erythrocytes count (nu mber/volume)Ordered By: Alfredo Phipps on 02-04-2023 RBC (Bld) [#/Vol] 4.81 10*6/uL 4.6-6.2 [facility] Blood hemoglobin measurement (mass/volume)Ordered By: Alfredo Phipps on 02-04-2023 Hemoglobin (Bld) [Mass/Vol] 13.9 g/dL 13.0-16.5 [facility] Blood lymphocytes/100 leukoc ytesOrdered By: Alfredo Phipps on 02-04-2023 Lymphocytes/100 WBC (Bld) 21.4 % 19-41 [facility] Blood monocytes/100 leukocyt esOrdered By: Alfredo Phipps on 02-04-2023 Monocytes/100 WBC (Bld) 9.2 % 0-10 [facility] Blood platelet mean volumeOr dered By: Alfredo Phipps on 02-04-2023 Platelet mean volume (Bld) [Entitic vol] 9.4 fL 6.2-12.0 [facility] Determination of erythrocyte mean corpuscular volume (MCV)Ordered By: Alfredo Phipps on 02-04-2023 MCV (RBC) [Entitic vol] 94.2 fL 80-94 [facility] Hematocrit Auto (Bld) [Volum e fraction]Ordered By: Alfredo Phipps on 02-04-2023 Hematocrit (Bld) [Volume fraction] 45.3 % 40-54 [facility] - Chemistry and C hemistry - challengeOrdered By: Alfredo Phipps on 02-04-2023 CO2 [Moles/Vol] 24.0 mmol/L 21.0-32.0 [facility] Urea nitrogen/Creatinine [Mass ratio] 14.6 mg/mg 10-20 [facility] - Hematology and Cell countsOrdered By: Alfredo Phipps on 02-04-2023 Erythrocyte distribution width (RBC) [Entitic vol] 45.1 fL 35.1-43.9 [facility] Erythrocyte distribution width (RBC) [Ratio] 13.1 % 11.6-14.6 [facility] Immature granulocytes/100 WBC (Bld) 0.700 % 0.0-0.9 [facility] Comment on above: IG% - Immature Granu locytes (promyelocytes, myelocytes and metamyelocytes) > 1% indicates that a LEFT SHIFT is Present. MCH (RBC) [Entitic mass] 28.9 pg 27.0-32.0 [facility] Nucleated RBC/100 WBC (Bld) [Ratio] 0 % 0-5 [facility] Auto (RBC) [Mass/Vol]Or dered By: Alfredo Phpips on 02-04-2023 MCHC (RBC) [Mass/Vol] 30.7 g/dL 32-36 [facility] No Panel InformationOrdered By: Alfredo Phipps on 02-04-2023 Estimated GFR (MDRD) Amer 53 mL/min >60 [facility] Comment on above: GFR Calc Estimated GFR (MDRD) Non-Af Amer 44 mL/min >60 [facility] Comment on above: Non- GFR Calc [place] Level 0.50 mmol/L 0.60-1.20 [facility] Platelets bldOrdered By: Jennifer Phipps on 02-04-2023 Platelets (Bld) [#/Vol] 182 10*3/uL 150-450 [facility] Serum or plasma albumin you urement (mass/volume)Ordered By: Alfredo Phipps on 02-04-2023 Albumin [Mass/Vol] 2.9 g/dL 3.2-5.0 [facility] Serum or plasma calcium you urement (mass/volume)Ordered By: Alfredo Phpips on 02-04-2023 Calcium [Mass/Vol] 8.9 mg/dL 8.5-10.1 [facility] Serum or plasma creatinine m easurement (mass/volume)Ordered By: Alfredo Phipps on 02-04-2023 Creatinine [Mass/Vol] 1.71 mg/dL 0.70-1.30 [facility] Comment on above: The validity of the calculated GFR & GFRAA in patients over 70 years has not been determined. Clinical correlation is essential. Serum or plasma urea nitroge n measurement (mass/volume)Ordered By: Alfredo Phipps on 02-04-2023 Urea nitrogen [Mass/Vol] 25 mg/dL 7-18 [facility] Serum or plasma uric acid me asurement (mass/volume)Ordered By: Adam Ferraro on 01-25-2023 Urate [Mass/Vol] 5.8 mg/dL 3.5-7.2 [facility] Comment on above: The drugs N-Acetylcy steine and Metamizole may falsely depress this assay. Basophil percentageOrdered B y: Alfredo Phipps on 01-19-2023 Cholesterol [Mass/Vol] 160 mg/dL <200 [facility] Comment on above: <200 mg/dL Desirable 200-240 mg/dL Borderline >240 mg/dL High Risk Triglyceride [Mass/Vol] 322 mg/dL <199 [facility] Comment on above: The drugs N-Acetylcy steine and Metamizole may falsely depress this assay.Serum Triglycerides Reference Interval Normal <150 mg/dL Borderline high 150 - 199 mg/dL High 200 - 499 mg/dL Very High > or = 500 mg/dL Serum or plasma cholesterol in HDL measurement (mass/volume)Ordered By: Alfredo Phipps on 01-19-2023 Cholesterol in HDL [Mass/Vol] 38 mg/dL >40 [facility] Comment on above: The drugs N-Acetylcy steine and Metamizole may falsely depress this assay. Reference Range HDL <40 mg/dL Low HDL Cholesterol HDL >or= 60 mg/dL High HDL Cholesterol Serum or plasma cholesterol in VLDL measurement (mass/volume)Ordered By: Alfredo Phipps on 01-19-2023 Cholesterol in VLDL [Mass/Vol] 64 mg/dL 5-40 [facility] Serum or plasma low density lipoprotein (LDL) cholesterol measurement (mass/volume)Ordered By: Alfredo Phipps on 01-19-2023 Cholesterol in LDL [Mass/Vol] 58 mg/dL 0-130 [facility] Absolute lymphocyte countOrd ered By: Alfredo Phipps on 01-07-2023 Lymphocytes Auto (Unsp spec) [#/Vol] 2.02 10*3/uL 0.83-4.51 [facility] Basophil percentageOrdered B y: Alfredo Phipps on 01-07-2023 Basophil percentage 3.6 mg/dL 2.5-4.[address] [facility] [facility] Basophils/100 WBC (Bld) 1.0 % 0-1 [facility] Chloride [Moles/Vol] 109 mmol/L 98-107 [facility] Eosinophils/100 WBC (Bld) 2.8 % 0-5 [facility] Glucose [Mass/Vol] 236 mg/dL 74-106 [facility] Comment on above: Glucose result great er than or equal to 200 mg/dLsuggests DIABETES MELLITUS per A.D.A. criteria. Neutrophils (Bld) [#/Vol] 5.8 10*3/uL 2.0-7.7 [facility] Neutrophils/100 WBC (Bld) 62.2 % 47-70 [facility] Potassium [Moles/Vol] 4.1 mmol/L 3.5-5.1 [facility] Sodium [Moles/Vol] 141 mmol/L 136-145 [facility] WBC (Bld) [#/Vol] 9.3 10*3/uL 4.4-11.0 [facility] Blood erythrocytes count (nu mber/volume)Ordered By: Alfredo Phipps on 01-07-2023 RBC (Bld) [#/Vol] 4.67 10*6/uL 4.6-6.2 [facility] Blood hemoglobin measurement (mass/volume)Ordered By: Alfredo Phipps on 01-07-2023 Hemoglobin (Bld) [Mass/Vol] 13.5 g/dL 13.0-16.5 [facility] Blood lymphocytes/100 leukoc ytesOrdered By: Alfredo Phipps on 01-07-2023 Lymphocytes/100 WBC (Bld) 21.8 % 19-41 [facility] Blood monocytes/100 leukocyt esOrdered By: Alfredo Phipps on 01-07-2023 Monocytes/100 WBC (Bld) 11.6 % 0-10 [facility] Blood platelet mean volumeOr dered By: Alfredo Phipps on 01-07-2023 Platelet mean volume (Bld) [Entitic vol] 9.8 fL 6.2-12.0 [facility] Determination of erythrocyte mean corpuscular volume (MCV)Ordered By: Alfredo Phipps on 01-07-2023 MCV (RBC) [Entitic vol] 89.7 fL 80-94 [facility] Hematocrit Auto (Bld) [Volum e fraction]Ordered By: Alfredo Phipps on 01-07-2023 Hematocrit (Bld) [Volume fraction] 41.9 % 40-54 [facility] - Chemistry and C hemistry - challengeOrdered By: Alfredo Phipps on 01-07-2023 CO2 [Moles/Vol] 26.0 mmol/L 21.0-32.0 [facility] Urea nitrogen/Creatinine [Mass ratio] 13.4 mg/mg 10-20 [facility] - Hematology and Cell countsOrdered By: Alfredo Phipps on 01-07-2023 Erythrocyte distribution width (RBC) [Entitic vol] 42.5 fL 35.1-43.9 [facility] Erythrocyte distribution width (RBC) [Ratio] 13.1 % 11.6-14.6 [facility] Immature granulocytes/100 WBC (Bld) 0.600 % 0.0-0.9 [facility] Comment on above: IG% - Immature Granu locytes (promyelocytes, myelocytes and metamyelocytes) > 1% indicates that a LEFT SHIFT is Present. MCH (RBC) [Entitic mass] 28.9 pg 27.0-32.0 [facility] Nucleated RBC/100 WBC (Bld) [Ratio] 0 % 0-5 [facility] MCHC Auto (RBC) [Mass/Vol]Or dered By: Alfredo Phipps on 01-07-2023 MCHC (RBC) [Mass/Vol] 32.2 g/dL 32-36 [facility] No Panel InformationOrdered By: Alfredo Phipps on 01-07-2023 Estimated GFR (MDRD) Amer 48 mL/min >60 [facility] Comment on above: GFR Calc Estimated GFR (MDRD) Non-Af Amer 40 mL/min >60 [facility] Comment on above: Non- GFR Calc [place] Level 0.30 mmol/L 0.60-1.20 [facility] Platelets bldOrdered By: Jennifer Phipps on 01-07-2023 Platelets (Bld) [#/Vol] 203 10*3/uL 150-450 [facility] Serum or plasma albumin you urement (mass/volume)Ordered By: Alfredo Phipps on 01-07-2023 Albumin [Mass/Vol] 2.9 g/dL 3.2-5.0 [facility] Serum or plasma calcium you urement (mass/volume)Ordered By: Alfredo Phipps on 01-07-2023 Calcium [Mass/Vol] 9.0 mg/dL 8.5-10.1 [facility] Serum or plasma creatinine m easurement (mass/volume)Ordered By: Alfredo Phipps on 01-07-2023 Creatinine [Mass/Vol] 1.86 mg/dL 0.70-1.30 [facility] Comment on above: The validity of the calculated GFR & GFRAA in patients over 70 years has not been determined. Clinical correlation is essential. Serum or plasma urea nitroge n measurement (mass/volume)Ordered By: Alfredo Phipps on 01-07-2023 Urea nitrogen [Mass/Vol] 25 mg/dL 7-18 [facility] Serum or plasma uric acid me asurement (mass/volume)Ordered By: Adam Ferraro on 12-28-2022 Urate [Mass/Vol] 5.9 mg/dL 3.5-7.2 [facility] Comment on above: The drugs N-Acetylcy steine and Metamizole may falsely depress this assay. Urine creatinine measurement (mass/volume)Ordered By: Adam Ferraro on 12-15-2022 Creatinine (U) [Mass/Vol] 141.00 mg/dL NO RANGE EST. [facility] Urine protein measurement (m ass/volume)Ordered By: Adam Ferraro on 12-15-2022 Protein (U) [Mass/Vol] 29.9 mg/dL 0.0-11.8 [facility] Urine protein/creatinine mas s ratioOrdered By: Adam Ferraro on 12-15-2022 Protein/Creatinine (U) [Mass ratio] 212 mg/g CRE 0-200 [facility] Absolute lymphocyte countOrd ered By: Adam Ferraro on 12-10-2022 Lymphocytes Auto (Unsp spec) [#/Vol] 1.96 10*3/uL 0.83-4.51 [facility] Basophil percentageOrdered B y: Adam Ferraro on 12-10-2022 Basophil percentage 4.0 mg/dL 2.5-4.9 [facility] Basophils/100 WBC (Bld) 1.2 % 0-1 [facility] [facility] Chloride [Moles/Vol] 106 mmol/L 98-107 [facility] Eosinophils/100 WBC (Bld) 3.6 % 0-5 [facility] Glucose [Mass/Vol] 155 mg/dL 74-106 [facility] Comment on above: Fasting Glucose resu lt greater than or equal to 126 mg/dL suggests DIABETES MELLITUS per A.D.A. criteria. Neutrophils (Bld) [#/Vol] 4.9 10*3/uL 2.0-7.7 [facility] Neutrophils/100 WBC (Bld) 60.1 % 47-70 [facility] Potassium [Moles/Vol] 4.1 mmol/L 3.5-5.1 [facility] Sodium [Moles/Vol] 140 mmol/L 136-145 [facility] WBC (Bld) [#/Vol] 8.1 10*3/uL 4.4-11.0 [facility] Blood erythrocytes count (nu mber/volume)Ordered By: Adam Ferraro on 12-10-2022 RBC (Bld) [#/Vol] 4.96 10*6/uL 4.6-6.2 [facility] Blood hemoglobin measurement (mass/volume)Ordered By: Adam Ferraro on 12-10-2022 Hemoglobin (Bld) [Mass/Vol] 14.4 g/dL 13.0-16.5 [facility] Blood lymphocytes/100 leukoc ytesOrdered By: Adam Ferraro on 12-10-2022 Lymphocytes/100 WBC (Bld) 24.1 % 19-41 [facility] Blood monocytes/100 leukocyt esOrdered By: Adam Ferraro on 12-10-2022 Monocytes/100 WBC (Bld) 10.6 % 0-10 [facility] Blood platelet mean volumeOr dered By: Adam Ferraro on 12-10-2022 Platelet mean volume (Bld) [Entitic vol] 9.8 fL 6.2-12.0 [facility] Determination of erythrocyte mean corpuscular volume (MCV)Ordered By: Adam Ferraro on 12-10-2022 MCV (RBC) [Entitic vol] 89.5 fL 80-94 [facility] Hematocrit Auto (Bld) [Volum e fraction]Ordered By: Adam Ferraro on 12-10-2022 Hematocrit (Bld) [Volume fraction] 44.4 % 40-54 [facility] Laboratory - Chemistry and C hemistry - challengeOrdered By: Adam Ferraro on 12-10-2022 CO2 [Moles/Vol] 26.0 mmol/L 21.0-32.0 [facility] Urea nitrogen/Creatinine [Mass ratio] 10.1 mg/mg 10-20 [facility] Laboratory - Hematology and Cell countsOrdered By: Adam Ferraro on 12-10-2022 Erythrocyte distribution width (RBC) [Entitic vol] 42.6 fL 35.1-43.9 [facility] Erythrocyte distribution width (RBC) [Ratio] 13.0 % 11.6-14.6 [facility] Immature granulocytes/100 WBC (Bld) 0.400 % 0.0-0.9 [facility] Comment on above: IG% - Immature Granu locytes (promyelocytes, myelocytes and metamyelocytes) > 1% indicates that a LEFT SHIFT is Present. MCH (RBC) [Entitic mass] 29.0 pg 27.0-32.0 [facility] Nucleated RBC/100 WBC (Bld) [Ratio] 0 % 0-5 [facility] MCHC Auto (RBC) [Mass/Vol]Or dered By: Adam Ferraro on 12-10-2022 MCHC (RBC) [Mass/Vol] 32.4 g/dL 32-36 [facility] No Panel InformationOrdered By: Adam Ferraro on 12-10-2022 Estimated GFR (MDRD) Amer 50 mL/min >60 [facility] Comment on above: GFR Calc Estimated GFR (MDRD) Non-Af Amer 41 mL/min >60 [facility] Comment on above: Non- GFR Calc [place] Level 0.50 mmol/L 0.60-1.20 [facility] Platelets bldOrdered By: Benoit Ferraro on 12-10-2022 Platelets (Bld) [#/Vol] 213 10*3/uL 150-450 [facility] Serum or plasma albumin you urement (mass/volume)Ordered By: Adam Ferraro on 12-10-2022 Albumin [Mass/Vol] 2.8 g/dL 3.2-5.0 [facility] Serum or plasma calcium you urement (mass/volume)Ordered By: Adam Ferraro on 12-10-2022 Calcium [Mass/Vol] 8.8 mg/dL 8.5-10.1 [facility] Serum or plasma creatinine m easurement (mass/volume)Ordered By: Adam Ferraro on 12-10-2022 Creatinine [Mass/Vol] 1.79 mg/dL 0.70-1.30 [facility] Comment on above: The validity of the calculated GFR & GFRAA in patients over 70 years has not been determined. Clinical correlation is essential. Serum or plasma urea nitroge n measurement (mass/volume)Ordered By: Adam Ferraro on 12-10-2022 Urea nitrogen [Mass/Vol] 18 mg/dL 7-18 [facility] Urine creatinine measurement (mass/volume)Ordered By: Adam Ferraro on 11-17-2022 Creatinine (U) [Mass/Vol] 74.70 mg/dL NO RANGE EST. [facility] Urine protein measurement (m ass/volume)Ordered By: Adam Ferraro on 11-17-2022 Protein (U) [Mass/Vol] 16.5 mg/dL 0.0-11.8 [facility] Urine protein/creatinine mas s ratioOrdered By: Adam Ferraro on 11-17-2022 Protein/Creatinine (U) [Mass ratio] 221 mg/g CRE 0-200 [facility] Absolute lymphocyte countOrd ered By: Alfredo Phipps on 11-12-2022 Lymphocytes Auto (Unsp spec) [#/Vol] 2.11 10*3/uL 0.83-4.51 [facility] Basophil percentageOrdered B y: Alfredo Phipps on 11-12-2022 Basophil percentage 3.3 mg/dL 2.5-4.9 [facility] Basophils/100 WBC (Bld) 0.7 % 0-1 [facility] Chloride [Moles/Vol] 106 mmol/L 98-107 [facility] Eosinophils/100 WBC (Bld) 2.4 % 0-5 [facility] Glucose [Mass/Vol] 169 mg/dL 74-106 [facility] Comment on above: Fasting Glucose resu lt greater than or equal to 126 mg/dL suggests DIABETES MELLITUS per A.D.A. criteria. Neutrophils (Bld) [#/Vol] 6.1 10*3/uL 2.0-7.7 [facility] Neutrophils/100 WBC (Bld) 63.5 % 47-70 [facility] Potassium [Moles/Vol] 3.5 mmol/L 3.5-5.1 [facility] Sodium [Moles/Vol] 138 mmol/L 136-145 [facility] WBC (Bld) [#/Vol] 9.6 10*3/uL 4.4-11.0 [facility] Blood erythrocytes count (nu mber/volume)Ordered By: Alfredo Phipps on 11-12-2022 RBC (Bld) [#/Vol] 4.67 10*6/uL 4.6-6.2 [facility] Blood hemoglobin measurement (mass/volume)Ordered By: Alfredo Phipps on 11-12-2022 Hemoglobin (Bld) [Mass/Vol] 13.9 g/dL 13.0-16.5 [facility] Blood lymphocytes/100 leukoc ytesOrdered By: Alfredo Phipps on 11-12-2022 Lymphocytes/100 WBC (Bld) 21.9 % 19-41 [facility] Blood monocytes/100 leukocyt esOrdered By: Alfredo Phipps on 11-12-2022 Monocytes/100 WBC (Bld) 10.8 % 0-10 [facility] Blood platelet mean volumeOr dered By: Alfredo Phipps on 11-12-2022 Platelet mean volume (Bld) [Entitic vol] 9.8 fL 6.2-12.0 [facility] Determination of erythrocyte mean corpuscular volume (MCV)Ordered By: Alfredo Phipps on 11-12-2022 MCV (RBC) [Entitic vol] 89.1 fL 80-94 [facility] Hematocrit Auto (Bld) [Volum e fraction]Ordered By: Alfredo Phipps on 11-12-2022 Hematocrit (Bld) [Volume fraction] 41.6 % 40-54 [facility] Laboratory - Chemistry and C hemistry - challengeOrdered By: Alfredo Phipps on 11-12-2022 CO2 [Moles/Vol] 25.0 mmol/L 21.0-32.0 [facility] Urea nitrogen/Creatinine [Mass ratio] 11.4 mg/mg 10-20 [facility] Laboratory - Hematology and Cell countsOrdered By: Alfredo Phipps on 11-12-2022 Erythrocyte distribution width (RBC) [Entitic vol] 43.2 fL 35.1-43.9 [facility] Erythrocyte distribution width (RBC) [Ratio] 13.2 % 11.6-14.6 [facility] Immature granulocytes/100 WBC (Bld) 0.700 % 0.0-0.9 [facility] Comment on above: IG% - Immature Granu locytes (promyelocytes, myelocytes and metamyelocytes) > 1% indicates that a LEFT SHIFT is Present. MCH (RBC) [Entitic mass] 29.8 pg 27.0-32.0 [facility] Nucleated RBC/100 WBC (Bld) [Ratio] 0 % 0-5 [facility] MCHC Auto (RBC) [Mass/Vol]Or dered By: Alfredo Phipps on 11-12-2022 MCHC (RBC) [Mass/Vol] 33.4 g/dL 32-36 [facility] No Panel InformationOrdered By: Alfredo Phipps on 11-12-2022 Estimated GFR (MDRD) Amer 48 mL/min >60 [facility] Comment on above: GFR Calc Estimated GFR (MDRD) Non-Af Amer 40 mL/min >60 [facility] Comment on above: Non- GFR Calc [place] Level 0.40 mmol/L 0.60-1.20 [facility] Platelets bldOrdered By: Jennifer Phipps on 11-12-2022 Platelets (Bld) [#/Vol] 200 10*3/uL 150-450 [facility] Serum or plasma albumin you urement (mass/volume)Ordered By: Alfredo Phipps on 11-12-2022 Albumin [Mass/Vol] 2.9 g/dL 3.2-5.0 [facility] Serum or plasma calcium you urement (mass/volume)Ordered By: Alfredo Phipps on 11-12-2022 Calcium [Mass/Vol] 8.7 mg/dL 8.5-10.1 [facility] Serum or plasma creatinine m easurement (mass/volume)Ordered By: Alfredo Phipps on 11-12-2022 Creatinine [Mass/Vol] 1.85 mg/dL 0.70-1.30 [facility] Comment on above: The validity of the calculated GFR & GFRAA in patients over 70 years has not been determined. Clinical correlation is essential. Serum or plasma urea nitroge n measurement (mass/volume)Ordered By: Alfredo Phipps on 11-12-2022 Urea nitrogen [Mass/Vol] 21 mg/dL 7-18 [facility] Serum or plasma uric acid me asurement (mass/volume)Ordered By: Alfredo Phipps on 10-27-2022 Urate [Mass/Vol] 6.4 mg/dL 3.5-7.2 [facility] Comment on above: The drugs N-Acetylcy steine and Metamizole may falsely depress this assay. Absolute lymphocyte countOrd ered By: Alfredo Phipps on 10-15-2022 Lymphocytes Auto (Unsp spec) [#/Vol] 2.30 10*3/uL 0.83-4.51 [facility] Basophil percentageOrdered B y: Alfredo Phipps on 10-15-2022 Basophil percentage 4.2 mg/dL 2.5-4.9 [facility] Basophils/100 WBC (Bld) 1.0 % 0-1 [facility] Chloride [Moles/Vol] 108 mmol/L 98-107 [facility] Eosinophils/100 WBC (Bld) 3.2 % 0-5 [facility] Glucose [Mass/Vol] 168 mg/dL 74-106 [facility] Comment on above: Fasting Glucose resu lt greater than or equal to 126 mg/dL suggests DIABETES MELLITUS per A.D.A. criteria. Neutrophils (Bld) [#/Vol] 4.8 10*3/uL 2.0-7.7 [facility] Neutrophils/100 WBC (Bld) 58.3 % 47-70 [facility] Potassium [Moles/Vol] 4.1 mmol/L 3.5-5.1 [facility] Comment on above: Slight Hemolysis, Re sult may be falsely increased. Sodium [Moles/Vol] 140 mmol/L 136-145 [facility] WBC (Bld) [#/Vol] 8.3 10*3/uL 4.4-11.0 [facility] Blood erythrocytes count (nu mber/volume)Ordered By: Alfredo Phipps on 10-15-2022 RBC (Bld) [#/Vol] 4.81 10*6/uL 4.6-6.2 [facility] Blood hemoglobin measurement (mass/volume)Ordered By: Alfredo Phipps on 10-15-2022 Hemoglobin (Bld) [Mass/Vol] 13.9 g/dL 13.0-16.5 [facility] Blood lymphocytes/100 leukoc ytesOrdered By: Alfredo Phipps on 10-15-2022 Lymphocytes/100 WBC (Bld) 27.6 % 19-41 [facility] Blood monocytes/100 leukocyt esOrdered By: Alfredo Phipps on 10-15-2022 Monocytes/100 WBC (Bld) 9.1 % 0-10 [facility] Blood platelet mean volumeOr dered By: Alfredo Phipps on 10-15-2022 Platelet mean volume (Bld) [Entitic vol] 10.1 fL 6.2-12.0 [facility] Determination of erythrocyte mean corpuscular volume (MCV)Ordered By: Alfredo Phipps on 10-15-2022 MCV (RBC) [Entitic vol] 89.4 fL 80-94 [facility] Hematocrit Auto (Bld) [Volum e fraction]Ordered By: Alfredo Phipps on 10-15-2022 Hematocrit (Bld) [Volume fraction] 43.0 % 40-54 [facility] Laboratory - Chemistry and C hemistry - challengeOrdered By: Alfredo Phipps on 10-15-2022 CO2 [Moles/Vol] 28.0 mmol/L 21.0-32.0 [facility] Urea nitrogen/Creatinine [Mass ratio] 11.3 mg/mg 10-20 [facility] - Hematology and Cell countsOrdered By: Alfredo Phipps on 10-15-2022 Erythrocyte distribution width (RBC) [Entitic vol] 42.9 fL 35.1-43.9 [facility] Erythrocyte distribution width (RBC) [Ratio] 13.2 % 11.6-14.6 [facility] Immature granulocytes/100 WBC (Bld) 0.800 % 0.0-0.9 [facility] Comment on above: IG% - Immature Granu locytes (promyelocytes, myelocytes and metamyelocytes) > 1% indicates that a LEFT SHIFT is Present. MCH (RBC) [Entitic mass] 28.9 pg 27.0-32.0 [facility] Nucleated RBC/100 WBC (Bld) [Ratio] 0 % 0-5 [facility] Auto (RBC) [Mass/Vol]Or dered By: Alfredo Phipps on 10-15-2022 MCHC (RBC) [Mass/Vol] 32.3 g/dL 32-36 [facility] No Panel InformationOrdered By: Alfredo Phipps on 10-15-2022 Estimated GFR (MDRD) Amer 46 mL/min >60 [facility] Comment on above: GFR Calc Estimated GFR (MDRD) Non-Af Amer 38 mL/min >60 [facility] Comment on above: Non- GFR Calc [place] Level 0.50 mmol/L 0.60-1.20 [facility] Platelets bldOrdered By: Jennifer Phipps on 10-15-2022 Platelets (Bld) [#/Vol] 200 10*3/uL 150-450 [facility] Serum or plasma albumin you urement (mass/volume)Ordered By: Alfredo Phipps on 10-15-2022 Albumin [Mass/Vol] 2.9 g/dL 3.2-5.0 [facility] Serum or plasma calcium you urement (mass/volume)Ordered By: Alfredo Phipps on 10-15-2022 Calcium [Mass/Vol] 9.1 mg/dL 8.5-10.1 [facility] Serum or plasma creatinine m easurement (mass/volume)Ordered By: Alfredo Phipps on 10-15-2022 Creatinine [Mass/Vol] 1.94 mg/dL 0.70-1.30 [facility] Comment on above: The validity of the calculated GFR & GFRAA in patients over 70 years has not been determined. Clinical correlation is essential. Serum or plasma urea nitroge n measurement (mass/volume)Ordered By: Alfredo Phipps on 10-15-2022 Urea nitrogen [Mass/Vol] 22 mg/dL 7-18 [facility] Serum or plasma uric acid me asurement (mass/volume)Ordered By: Alfredo Phipps on 09-27-2022 Urate [Mass/Vol] 7.0 mg/dL 3.5-7.2 [facility] Comment on above: The drugs N-Acetylcy steine and Metamizole may falsely depress this assay. Absolute lymphocyte countOrd ered By: Adam Ferraro on 09-17-2022 Lymphocytes Auto (Unsp spec) [#/Vol] 2.69 10*3/uL 0.83-4.51 [facility] Basophil percentageOrdered B y: Adam Ferraro on 09-17-2022 Basophil percentage 3.8 mg/dL 2.5-4.9 [facility] Basophils/100 WBC (Bld) 0.9 % 0-1 [facility] Chloride [Moles/Vol] 105 mmol/L 98-107 [facility] Eosinophils/100 WBC (Bld) 3.2 % 0-5 [facility] Glucose [Mass/Vol] 141 mg/dL 74-106 [facility] Comment on above: Fasting Glucose resu lt greater than or equal to 126 mg/dL suggests DIABETES MELLITUS per A.D.A. criteria. Neutrophils (Bld) [#/Vol] 5.1 10*3/uL 2.0-7.7 [facility] Neutrophils/100 WBC (Bld) 56.1 % 47-70 [facility] Potassium [Moles/Vol] 3.8 mmol/L 3.5-5.1 [facility] Sodium [Moles/Vol] 139 mmol/L 136-145 [facility] WBC (Bld) [#/Vol] 9.0 10*3/uL 4.4-11.0 [facility] Blood erythrocytes count (nu mber/volume)Ordered By: Adam Ferraro on 09-17-2022 RBC (Bld) [#/Vol] 4.99 10*6/uL 4.6-6.2 [facility] Blood hemoglobin measurement (mass/volume)Ordered By: Adam Ferraro on 09-17-2022 Hemoglobin (Bld) [Mass/Vol] 14.8 g/dL 13.0-16.5 [facility] Blood lymphocytes/100 leukoc ytesOrdered By: Adam Ferraro on 09-17-2022 Lymphocytes/100 WBC (Bld) 29.8 % 19-41 [facility] Blood monocytes/100 leukocyt esOrdered By: Adam Ferraro on 09-17-2022 Monocytes/100 WBC (Bld) 9.4 % 0-10 [facility] Blood platelet mean volumeOr dered By: Adam Ferraro on 09-17-2022 Platelet mean volume (Bld) [Entitic vol] 10.2 fL 6.2-12.0 [facility] Determination of erythrocyte mean corpuscular volume (MCV)Ordered By: Adam Ferraro on 09-17-2022 MCV (RBC) [Entitic vol] 88.6 fL 80-94 [facility] Hematocrit Auto (Bld) [Volum e fraction]Ordered By: Adam Ferraro on 09-17-2022 Hematocrit (Bld) [Volume fraction] 44.2 % 40-54 [facility] Laboratory - Chemistry and C hemistry - challengeOrdered By: Adam Ferraro on 09-17-2022 CO2 [Moles/Vol] 26.0 mmol/L 21.0-32.0 [facility] Urea nitrogen/Creatinine [Mass ratio] 11.4 mg/mg 10-20 [facility] Laboratory - Hematology and Cell countsOrdered By: Adam Ferraro on 09-17-2022 Erythrocyte distribution width (RBC) [Entitic vol] 42.8 fL 35.1-43.9 [facility] Erythrocyte distribution width (RBC) [Ratio] 13.2 % 11.6-14.6 [facility] Immature granulocytes/100 WBC (Bld) 0.600 % 0.0-0.9 [facility] Comment on above: IG% - Immature Granu locytes (promyelocytes, myelocytes and metamyelocytes) > 1% indicates that a LEFT SHIFT is Present. MCH (RBC) [Entitic mass] 29.7 pg 27.0-32.0 [facility] Nucleated RBC/100 WBC (Bld) [Ratio] 0 % 0-5 [facility] MCHC Auto (RBC) [Mass/Vol]Or dered By: Adam Ferraro on 09-17-2022 MCHC (RBC) [Mass/Vol] 33.5 g/dL 32-36 [facility] No Panel InformationOrdered By: Adam Ferraro on 09-17-2022 [place] Level 0.50 mmol/L 0.60-1.20 [facility] Estimated GFR (MDRD) Amer 51 mL/min >60 [facility] Comment on above: GFR Calc Estimated GFR (MDRD) Non-Af Amer 42 mL/min >60 [facility] Comment on above: Non- GFR Calc Platelets bldOrdered By: Benoit Ferraro on 09-17-2022 Platelets (Bld) [#/Vol] 178 10*3/uL 150-450 [facility] Serum or plasma albumin you urement (mass/volume)Ordered By: Adam Ferraro on 09-17-2022 Albumin [Mass/Vol] 3.0 g/dL 3.2-5.0 [facility] Serum or plasma calcium you urement (mass/volume)Ordered By: Adam Ferraro on 09-17-2022 Calcium [Mass/Vol] 9.0 mg/dL 8.5-10.1 [facility] Serum or plasma creatinine m easurement (mass/volume)Ordered By: Adam Ferraro on 09-17-2022 Creatinine [Mass/Vol] 1.76 mg/dL 0.70-1.30 [facility] Comment on above: The validity of the calculated GFR & GFRAA in patients over 70 years has not been determined. Clinical correlation is essential. Serum or plasma urea nitroge n measurement (mass/volume)Ordered By: Adam Ferraro on 09-17-2022 Urea nitrogen [Mass/Vol] 20 mg/dL 7-18 [facility] Urine creatinine measurement (mass/volume)Ordered By: Adam Ferraro on 09-17-2022 Creatinine (U) [Mass/Vol] 128.00 mg/dL NO RANGE EST. [facility] Urine protein measurement (m ass/volume)Ordered By: Adam Ferraro on 09-17-2022 Protein (U) [Mass/Vol] 20.9 mg/dL 0.0-11.8 [facility] Urine protein/creatinine mas s ratioOrdered By: Adam Ferraro on 09-17-2022 Protein/Creatinine (U) [Mass ratio] 163 mg/g CRE 0-200 [facility] Serum or plasma uric acid me asurement (mass/volume)Ordered By: Adam Ferraro on 08-27-2022 Urate [Mass/Vol] 6.4 mg/dL 3.5-7.2 [facility] Comment on above: The drugs N-Acetylcy steine and Metamizole may falsely depress this assay. No Panel InformationOrdered By: Adam Ferraro on 08-23-2022 [place] Level 0.40 mmol/L 0.60-1.20 [facility] Culture, urineOrdered By: Chan Fiore on 08-15-2022 Bacteria identified Cx Nom (U) Streptococcus mitis [facility] Absolute lymphocyte countOrd ered By: Alfredo Phipps on 08-12-2022 Lymphocytes Auto (Unsp spec) [#/Vol] 2.09 10*3/uL 0.83-4.51 [facility] Basophil percentageOrdered B y: Alfredo Phipps on 08-12-2022 Basophil percentage 3.6 mg/dL 2.5-4.9 [facility] Basophils/100 WBC (Bld) 0.9 % 0-1 [facility] Chloride [Moles/Vol] 107 mmol/L 98-107 [facility] Eosinophils/100 WBC (Bld) 2.8 % 0-5 [facility] Glucose [Mass/Vol] 151 mg/dL 74-106 [facility] Comment on above: Fasting Glucose resu lt greater than or equal to 126 mg/dL suggests DIABETES MELLITUS per A.D.A. criteria. Neutrophils (Bld) [#/Vol] 5.5 10*3/uL 2.0-7.7 [facility] Neutrophils/100 WBC (Bld) 63.4 % 47-70 [facility] Potassium [Moles/Vol] 4.0 mmol/L 3.5-5.1 [facility] Sodium [Moles/Vol] 140 mmol/L 136-145 [facility] WBC (Bld) [#/Vol] 8.7 10*3/uL 4.4-11.0 [facility] Basophil percentage 10-25 SEEN /hpf 0-5 [facility] Bilirubin Test strip Ql (U)O rdered By: Alfredo Phipps on 08-12-2022 Bilirubin Ql (U) Negative Negative [facility] Blood erythrocytes count (nu mber/volume)Ordered By: Alfredo Phipps on 08-12-2022 RBC (Bld) [#/Vol] 4.92 10*6/uL 4.6-6.2 [facility] Blood hemoglobin measurement (mass/volume)Ordered By: Alfredo Phipps on 08-12-2022 Hemoglobin (Bld) [Mass/Vol] 14.5 g/dL 13.0-16.5 [facility] Blood lymphocytes/100 leukoc ytesOrdered By: Alfredo Phipps on 08-12-2022 Lymphocytes/100 WBC (Bld) 24.1 % 19-41 [facility] Blood monocytes/100 leukocyt esOrdered By: Alfredo Phipps on 08-12-2022 Monocytes/100 WBC (Bld) 8.3 % 0-10 [facility] Blood platelet mean volumeOr dered By: Alfredo Phipps on 08-12-2022 Platelet mean volume (Bld) [Entitic vol] 9.8 fL 6.2-12.0 [facility] Determination of erythrocyte mean corpuscular volume (MCV)Ordered By: Alfredo Phipps on 08-12-2022 MCV (RBC) [Entitic vol] 91.1 fL 80-94 [facility] Hematocrit Auto (Bld) [Volum e fraction]Ordered By: Alfredo Phipps on 08-12-2022 Hematocrit (Bld) [Volume fraction] 44.8 % 40-54 [facility] Ketones Test strip Ql (U)Ord ered By: Alfredo Phipps on 08-12-2022 Ketones Ql (U) Negative Negative [facility] Laboratory - Chemistry and C hemistry - challengeOrdered By: Alfredo Phipps on 08-12-2022 CO2 [Moles/Vol] 25.0 mmol/L 21.0-32.0 [facility] Urea nitrogen/Creatinine [Mass ratio] 14.9 mg/mg 10-20 [facility] - Hematology and Cell countsOrdered By: Alfredo Phipps on 08-12-2022 Erythrocyte distribution width (RBC) [Entitic vol] 43.3 fL 35.1-43.9 [facility] Erythrocyte distribution width (RBC) [Ratio] 12.9 % 11.6-14.6 [facility] Immature granulocytes/100 WBC (Bld) 0.500 % 0.0-0.9 [facility] Comment on above: IG% - Immature Granu locytes (promyelocytes, myelocytes and metamyelocytes) > 1% indicates that a LEFT SHIFT is Present. MCH (RBC) [Entitic mass] 29.5 pg 27.0-32.0 [facility] Nucleated RBC/100 WBC (Bld) [Ratio] 0 % 0-5 [facility] MCHC Auto (RBC) [Mass/Vol]Or dered By: Alfredo Phipps on 08-12-2022 MCHC (RBC) [Mass/Vol] 32.4 g/dL 32-36 [facility] Mucus LM Ql (Urine sed)Order ed By: Alfredo Phipps on 08-12-2022 Mucus Ql (Urine sed) Not Reportable [facility] Nitrite Test strip Ql (U)Ord ered By: Alfredo Phipps on 08-12-2022 Nitrite Ql (U) Negative Negative [facility] No Panel InformationOrdered By: Alfredo Phipps on 08-12-2022 Estimated GFR (MDRD) Amer 54 mL/min >60 [facility] Comment on above: GFR Calc Estimated GFR (MDRD) Non-Af Amer 45 mL/min >60 [facility] Comment on above: Non- GFR Calc Platelets bldOrdered By: Pet shonda Phipps on 08-12-2022 Platelets (Bld) [#/Vol] 238 10*3/uL 150-450 [facility] Protein Test strip Ql (U)Ord ered By: Alfredo Phipps on 08-12-2022 Protein Ql (U) 15 mg/dl Negative [facility] Serum or plasma albumin you urement (mass/volume)Ordered By: Alfredo Phipps on 08-12-2022 Albumin [Mass/Vol] 2.9 g/dL 3.2-5.0 [facility] Serum or plasma calcium you urement (mass/volume)Ordered By: Alfredo Phipps on 08-12-2022 Calcium [Mass/Vol] 9.2 mg/dL 8.5-10.1 [facility] Serum or plasma creatinine m easurement (mass/volume)Ordered By: Alfredo Phipps on 08-12-2022 Creatinine [Mass/Vol] 1.68 mg/dL 0.70-1.30 [facility] Comment on above: The validity of the calculated GFR & GFRAA in patients over 70 years has not been determined. Clinical correlation is essential. Serum or plasma urea nitroge n measurement (mass/volume)Ordered By: Alfredo Phipps on 08-12-2022 Urea nitrogen [Mass/Vol] 25 mg/dL 7-18 [facility] Squamous epithelial cells de tection in urine sediment by light microscopyOrdered By: Alfredo Phipps on 08-12-2022 Epithelial cells.squamous LM Ql (Urine sed) 0-5 SEEN /hpf 0-5 [facility] Urine blood detectionOrdered By: Alfredo Phipps on 08-12-2022 RBC Ql (U) Negative Negative [facility] RBC Ql (U) 0 SEEN /hpf 0-5 [facility] Urine clarityOrdered By: Jennifer Phipps on 08-12-2022 Clarity (U) Clear Clear [facility] Urine color determinationOrd ered By: Alfredo Phipps on 08-12-2022 Color (U) Yellow Yellow [facility] Urine creatinine measurement (mass/volume)Ordered By: Alfredo Phipps on 08-12-2022 Creatinine (U) [Mass/Vol] 102.00 mg/dL NO RANGE EST. [facility] Urine glucose detectionOrder ed By: Alfredo Phipps on 08-12-2022 Glucose Ql (U) Normal mg/dl Normal [facility] Urine leukocyte esterase det ection by dipstickOrdered By: Alfredo Phipps on 08-12-2022 Leukocyte esterase Test strip Ql (U) 500 /ul Negative [facility] Urine pHOrdered By: Alfredo saha on 08-12-2022 pH (U) 6.0 [pH] 5.0 - 8.0 [facility] Urine protein measurement (m ass/volume)Ordered By: Alfredo Phipps on 08-12-2022 Protein (U) [Mass/Vol] 19.9 mg/dL 0.0-11.8 [facility] Urine protein/creatinine mas s ratioOrdered By: Alfredo Phipps on 08-12-2022 Protein/Creatinine (U) [Mass ratio] 195 mg/g CRE 0-200 [facility] Urine sediment bacteria coun t by microscopy (number/high power field)Ordered By: Alfredo Phipps on 08-12-2022 Bacteria LM.HPF (Urine sed) [#/Area] RARE /hpf None Seen [facility] Urine specific gravity measu rementOrdered By: Alfredo Phipps on 08-12-2022 Specific gravity (U) [Rel density] 1.015 1.002-1.030 [facility] Urobilinogen Auto test strip Ql (U)Ordered By: Alfredo Phipps on 08-12-2022 Urobilinogen Ql (U) Normal mg/dl Normal [facility] No Panel Informationon 07-28 [place] Level 0.60 mmol/L 0.60-1.20 [facility] Work Phone: Serum or plasma uric acid me asurement (mass/volume)on 07-28-2022 Urate [Mass/Vol] 6.3 mg/dL 3.5-7.2 [facility] Work Phone: Comment on above: The drugs N-Acetylcy steine and Metamizole may falsely depress this assay. URINALYSIS, REFLEX MICROSCOP ICon 07-27-2022 Bilirubin Ql (U) Negative Negative [facility] Clarity (Unsp spec) Clear Clear [facility] Color (U) Colorless Yellow [facility] Glucose Test strip (U) [Mass/Vol] Negative Negative [facility] Hemoglobin Ql (U) Negative Negative [facility] Ketones Ql (U) Negative Negative [facility] Leukocyte esterase Test strip Ql (U) Negative Negative [facility] Nitrite Ql (U) Negative Negative [facility] pH (U) 6.5 [pH] 5.0 - 8.0 [facility] Protein (U) [Mass/Vol] Negative Negative [facility] Specific gravity (U) [Rel density] 1.009 1.005 - 1.030 [facility] Urobilinogen Ql (U) Negative Negative [facility] Absolute lymphocyte counton 07-15-2022 Lymphocytes Auto (Unsp spec) [#/Vol] 1.93 10*3/uL 0.83-4.51 [facility] Work Phone: Basophil percentageon 2021 Basophil percentage 3.9 mg/dL 2.5-4.9 [facility] Work Phone: Basophils/100 WBC (Bld) 1.3 % 0-1 [facility] Work Phone: Chloride [Moles/Vol] 107 mmol/L 98-107 [facility] Work Phone: Eosinophils/100 WBC (Bld) 1.7 % 0-5 [facility] Work Phone: Glucose [Mass/Vol] 126 mg/dL 74-106 [facility] Work Phone: Comment on above: Fasting Glucose resu lt greater than or equal to 126 mg/dL suggests DIABETES MELLITUS per A.D.A. criteria. Neutrophils (Bld) [#/Vol] 6.1 10*3/uL 2.0-7.7 [facility] Work Phone: [phone] Neutrophils/100 WBC (Bld) 66.5 % 47-70 [facility] Work Phone: Potassium [Moles/Vol] 4.4 mmol/L 3.5-5.1 [facility] Work Phone: Sodium [Moles/Vol] 139 mmol/L 136-145 [facility] Work Phone: WBC (Bld) [#/Vol] 9.2 10*3/uL 4.4-11.0 [facility] Work Phone: Bilirubin Test strip Ql (U)o n 07-15-2022 Bilirubin Ql (U) Negative Negative [facility] Work Phone: Blood erythrocytes count (nu mber/volume)on 07-15-2022 RBC (Bld) [#/Vol] 5.01 10*6/uL 4.6-6.2 [facility] Work Phone: Blood hemoglobin measurement (mass/volume)on 07-15-2022 Hemoglobin (Bld) [Mass/Vol] 14.8 g/dL 13.0-16.5 [facility] Work Phone: Blood lymphocytes/100 leukoc yteson 07-15-2022 Lymphocytes/100 WBC (Bld) 20.9 % 19-41 [facility] Work Phone: Blood monocytes/100 leukocyt eson 07-15-2022 Monocytes/100 WBC (Bld) 8.9 % 0-10 [facility] Work Phone: Blood platelet mean volumeon 07-15-2022 Platelet mean volume (Bld) [Entitic vol] 9.7 fL 6.2-12.0 [facility] Work Phone: Determination of erythrocyte mean corpuscular volume (MCV)on 07-15-2022 MCV (RBC) [Entitic vol] 91.8 fL 80-94 [facility] Work Phone: Hematocrit Auto (Bld) [Volum e fraction]on 07-15-2022 Hematocrit (Bld) [Volume fraction] 46.0 % 40-54 [facility] Work Phone: Ketones Test strip Ql (U)on 07-15-2022 Ketones Ql (U) Negative Negative [facility] Work Phone: Laboratory - Chemistry and C hemistry - challengeon 07-15-2022 CO2 [Moles/Vol] 25.0 mmol/L 21.0-32.0 [facility] Work Phone: Urea nitrogen/Creatinine [Mass ratio] 14.9 mg/mg 10-20 [facility] Work Phone: Laboratory - Hematology and Cell countson 07-15-2022 Erythrocyte distribution width (RBC) [Entitic vol] 44.0 fL 35.1-43.9 [facility] Work Phone: Erythrocyte distribution width (RBC) [Ratio] 13.1 % 11.6-14.6 [facility] Work Phone: Immature granulocytes/100 WBC (Bld) 0.700 % 0.0-0.9 [facility] Work Phone: Comment on above: IG% - Immature Granu locytes (promyelocytes, myelocytes and metamyelocytes) > 1% indicates that a LEFT SHIFT is Present. MCH (RBC) [Entitic mass] 29.5 pg 27.0-32.0 [facility] Work Phone: Nucleated RBC/100 WBC (Bld) [Ratio] 0 % 0-5 [facility] Work Phone: MCHC Auto (RBC) [Mass/Vol]on 07-15-2022 MCHC (RBC) [Mass/Vol] 32.2 g/dL 32-36 [facility] Work Phone: Nitrite Test strip Ql (U)on 07-15-2022 Nitrite Ql (U) Negative Negative [facility] Work Phone: No Panel Informationon 07-15 Estimated GFR (MDRD) Amer 54 mL/min >60 [facility] Work Phone: Comment on above: GFR Calc Estimated GFR (MDRD) Non-Af Amer 45 mL/min >60 [facility] Work Phone: Comment on above: Non- GFR Calc Platelets bldon 07-15-2022 Platelets (Bld) [#/Vol] 231 10*3/uL 150-450 [facility] Work Phone: Protein Test strip Ql (U)on 07-15-2022 Protein Ql (U) 30 mg/dl Negative [facility] Work Phone: Serum or plasma albumin you urement (mass/volume)on 07-15-2022 Albumin [Mass/Vol] 3.1 g/dL 3.2-5.0 [facility] Work Phone: Serum or plasma calcium you urement (mass/volume)on 07-15-2022 Calcium [Mass/Vol] 8.6 mg/dL 8.5-10.1 [facility] Work Phone: Serum or plasma creatinine m easurement (mass/volume)on 07-15-2022 Creatinine [Mass/Vol] 1.68 mg/dL 0.70-1.30 [facility] Work Phone: Comment on above: The validity of the calculated GFR & GFRAA in patients over 70 years has not been determined. Clinical correlation is essential. Serum or plasma urea nitroge n measurement (mass/volume)on 07-15-2022 Urea nitrogen [Mass/Vol] 25 mg/dL 7-18 [facility] Work Phone: Urine blood detectionon 09-0 RBC Ql (U) Negative Negative [facility] Work Phone: Urine clarityon 07-15-2022 Clarity (U) Sl. Cloudy Clear [facility] Work Phone: Urine color determinationon 07-15-2022 Color (U) Yellow Yellow [facility] Work Phone: Urine creatinine measurement (mass/volume)on 07-15-2022 Creatinine (U) [Mass/Vol] 114.00 mg/dL NO RANGE EST. [facility] Work Phone: Urine glucose detectionon Glucose Ql (U) Normal mg/dl Normal [facility] Work Phone: Urine leukocyte esterase det ection by dipstickon 07-15-2022 Leukocyte esterase Test strip Ql (U) 100 /ul Negative [facility] Work Phone: Urine pHon 07-15-2022 pH (U) 6.0 [pH] 5.0 - 8.0 [facility] Work Phone: Urine protein measurement (m ass/volume)on 07-15-2022 Protein (U) [Mass/Vol] 26.5 mg/dL 0.0-11.8 [facility] Work Phone: Urine protein/creatinine mas s ratioon 07-15-2022 Protein/Creatinine (U) [Mass ratio] 232 mg/g CRE 0-200 [facility] Work Phone: Urine specific gravity measu rementon 07-15-2022 Specific gravity (U) [Rel density] 1.015 1.002-1.030 [facility] Work Phone: Urobilinogen Auto test strip Ql (U)on 07-15-2022 Urobilinogen Ql (U) Normal mg/dl Normal [facility] Work Phone: Basophil percentageon 2021 Cholesterol [Mass/Vol] 149 mg/dL <200 [facility] Work Phone: Comment on above: <200 mg/dL Desirable 200-240 mg/dL Borderline >240 mg/dL High Risk Triglyceride [Mass/Vol] 379 mg/dL <199 [facility] Work Phone: Comment on above: The drugs N-Acetylcy steine and Metamizole may falsely depress this assay.Serum Triglycerides Reference Interval Normal <150 mg/dL Borderline high 150 - 199 mg/dL High 200 - 499 mg/dL Very High > or = 500 mg/dL No Panel Informationon 06-28 [place] Level 0.40 mmol/L 0.60-1.20 [facility] Work Phone: Serum or plasma cholesterol in HDL measurement (mass/volume)on 06-28-2022 Cholesterol in HDL [Mass/Vol] 34 mg/dL >40 [facility] Work Phone: Comment on above: The drugs N-Acetylcy steine and Metamizole may falsely depress this assay. Reference Range HDL <40 mg/dL Low HDL Cholesterol HDL >or= 60 mg/dL High HDL Cholesterol Serum or plasma cholesterol in VLDL measurement (mass/volume)on 06-28-2022 Cholesterol in VLDL [Mass/Vol] 76 mg/dL 5-40 [facility] Work Phone: Serum or plasma low density lipoprotein (LDL) cholesterol measurement (mass/volume)on 06-28-2022 Cholesterol in LDL [Mass/Vol] 39 mg/dL 0-130 [facility] Work Phone: Serum or plasma uric acid me asurement (mass/volume)on 06-28-2022 Urate [Mass/Vol] 5.9 mg/dL 3.5-7.2 [facility] Work Phone: Comment on above: The drugs N-Acetylcy steine and Metamizole may falsely depress this assay. Absolute lymphocyte counton 06-17-2022 Lymphocytes Auto (Unsp spec) [#/Vol] 2.02 10*3/uL 0.83-4.51 [facility] Work Phone: Basophil percentageon 2021 Basophil percentage 0-5 SEEN /hpf 0-5 [facility] Work Phone: Basophil percentage 3.8 mg/dL 2.5-4.[address] [facility] Work Phone: Basophils/100 WBC (Bld) 0.8 % 0-1 [facility] Work Phone: Chloride [Moles/Vol] 108 mmol/L 98-[address] [facility] Work Phone: Eosinophils/100 WBC (Bld) 2.9 % 0-5 [facility] Work Phone: Glucose [Mass/Vol] 133 mg/dL 74-106 [facility] Work Phone: Comment on above: Fasting Glucose resu lt greater than or equal to 126 mg/dL suggests DIABETES MELLITUS per A.D.A. criteria. Neutrophils (Bld) [#/Vol] 5.3 10*3/uL 2.0-7.7 [facility] Work Phone: Neutrophils/100 WBC (Bld) 61.6 % 47-70 [facility] Work Phone: Potassium [Moles/Vol] 3.8 mmol/L 3.5-5.[address] [facility] Work Phone: Sodium [Moles/Vol] 140 mmol/L 136-145 [facility] Work Phone: WBC (Bld) [#/Vol] 8.6 10*3/uL 4.4-11.0 [facility] Work Phone: Bilirubin Test strip Ql (U)o n 06-17-2022 Bilirubin Ql (U) Negative Negative [facility] Work Phone: Blood erythrocytes count (nu mber/volume)on 06-17-2022 RBC (Bld) [#/Vol] 4.46 10*6/uL 4.6-6.2 [facility]: Blood hemoglobin measurement (mass/volume)on 06-17-2022 Hemoglobin (Bld) [Mass/Vol] 13.4 g/dL 13.0-16.5 [facility] Work Phone: Blood lymphocytes/100 leukoc yteson 06-17-2022 Lymphocytes/100 WBC (Bld) 23.5 % 19-41 [facility] Work Phone: Blood monocytes/100 leukocyt eson 06-17-2022 Monocytes/100 WBC (Bld) 10.0 % 0-10 [facility] Work Phone: Blood platelet mean volumeon 06-17-2022 Platelet mean volume (Bld) [Entitic vol] 9.6 fL 6.2-12.0 [facility] Work Phone: Determination of erythrocyte mean corpuscular volume (MCV)on 06-17-2022 MCV (RBC) [Entitic vol] 91.3 fL 80-94 [facility] Work Phone: Hematocrit Auto (Bld) [Volum e fraction]on 06-17-2022 Hematocrit (Bld) [Volume fraction] 40.7 % 40-54 [facility] Work Phone: Ketones Test strip Ql (U)on 06-17-2022 Ketones Ql (U) Negative Negative [facility] Work Phone: Laboratory - Chemistry and C hemistry - challengeon 06-17-2022 CO2 [Moles/Vol] 25.0 mmol/L 21.0-32.0 [facility] Work Phone: Urea nitrogen/Creatinine [Mass ratio] 12.6 mg/mg 10-20 [facility] Work Phone: Laboratory - Hematology and Cell countson 06-17-2022 Erythrocyte distribution width (RBC) [Entitic vol] 45.5 fL 35.1-43.9 [facility] Work Phone: Erythrocyte distribution width (RBC) [Ratio] 13.4 % 11.6-14.6 [facility] Work Phone: Immature granulocytes/100 WBC (Bld) 1.200 % 0.0-0.9 [facility] Work Phone: Comment on above: IG% - Immature Granu locytes (promyelocytes, myelocytes and metamyelocytes) > 1% indicates that a LEFT SHIFT is Present. MCH (RBC) [Entitic mass] 30.0 pg 27.0-32.0 [facility] Work Phone: Nucleated RBC/100 WBC (Bld) [Ratio] 0 % 0-5 [facility] Work Phone: MCHC Auto (RBC) [Mass/Vol]on 06-17-2022 MCHC (RBC) [Mass/Vol] 32.9 g/dL 32-36 [facility] Work Phone: Mucus LM Ql (Urine sed)on Mucus Ql (Urine sed) 0 SEEN /hpf [facility] Work Phone: Nitrite Test strip Ql (U)on 06-17-2022 Nitrite Ql (U) Negative Negative [facility] Work Phone: No Panel Informationon 06-17 Estimated GFR (MDRD) Amer 58 mL/min >60 [facility] Work Phone: Comment on above: GFR Calc Estimated GFR (MDRD) Non-Af Amer 48 mL/min >60 [facility] Work Phone: Comment on above: Non- GFR Calc Platelets bldon 06-17-2022 Platelets (Bld) [#/Vol] 178 10*3/uL 150-450 [facility] Work Phone: Protein Test strip Ql (U)on 06-17-2022 Protein Ql (U) 15 mg/dl Negative [facility] Work Phone: Serum or plasma albumin you urement (mass/volume)on 06-17-2022 Albumin [Mass/Vol] 2.8 g/dL 3.2-5.0 [facility] Work Phone: Serum or plasma calcium you urement (mass/volume)on 06-17-2022 Calcium [Mass/Vol] 8.6 mg/dL 8.5-10.[facility] Work Phone: Serum or plasma creatinine m easurement (mass/volume)on 06-17-2022 Creatinine [Mass/Vol] 1.59 mg/dL 0.70-1.30 [facility] Work Phone: Comment on above: The validity of the calculated GFR & GFRAA in patients over 70 years has not been determined. Clinical correlation is essential. Serum or plasma urea nitroge n measurement (mass/volume)on 06-17-2022 Urea nitrogen [Mass/Vol] 20 mg/dL 7-18 [facility] Work Phone: Squamous epithelial cells de tection in urine sediment by light microscopyon 06-17-2022 Epithelial cells.squamous LM Ql (Urine sed) 0-5 SEEN /hpf 0-5 [facility] Work Phone: Urine blood detectionon RBC Ql (U) Negative Negative [facility] Work Phone: RBC Ql (U) 0 SEEN /hpf 0-5 [facility] Work Phone: Urine clarityon 06-17-2022 Clarity (U) Clear Clear [facility] Work Phone: Urine color determinationon 06-17-2022 Color (U) Yellow Yellow [facility] Work Phone: Urine creatinine measurement (mass/volume)on 06-17-2022 Creatinine (U) [Mass/Vol] 118.00 mg/dL NO RANGE EST. [facility] Work Phone: Urine glucose detectionon Glucose Ql (U) Normal mg/dl Normal [facility] Work Phone: Urine leukocyte esterase det ection by dipstickon 06-17-2022 Leukocyte esterase Test strip Ql (U) 100 /ul Negative [facility] Work Phone: Urine pHon 06-17-2022 pH (U) 6.0 [pH] 5.0 - 8.0 [facility] Work Phone: Urine protein measurement (m ass/volume)on 06-17-2022 Protein (U) [Mass/Vol] 22.0 mg/dL 0.0-11.8 [facility] Work Phone: Urine protein/creatinine mas s ratioon 06-17-2022 Protein/Creatinine (U) [Mass ratio] 186 mg/g CRE 0-200 [facility] Work Phone: Urine sediment bacteria coun t by microscopy (number/high power field)on 06-17-2022 Bacteria LM.HPF (Urine sed) [#/Area] 0 /[HPF] None Seen [facility] Work Phone: Urine specific gravity measu rementon 06-17-2022 Specific gravity (U) [Rel density] 1.015 1.002-1.030 [facility] Work Phone: Urobilinogen Auto test strip Ql (U)on 06-17-2022 Urobilinogen Ql (U) Normal mg/dl [facility] Work [facility]: No Panel Informationon 05-27 [place] Level 0.40 mmol/L 0.60-1.20 [facility] Work Phone: Serum or plasma uric acid me asurement (mass/volume)on 05-27-2022 Urate [Mass/Vol] 6.1 mg/dL 3.5-7.2 [facility] Work Phone: Comment on above: The drugs N-Acetylcy steine and Metamizole may falsely depress this assay. Absolute lymphocyte counton 05-20-2022 Lymphocytes Auto (Unsp spec) [#/Vol] 2.07 10*3/uL 0.83-4.51 [facility] Work Phone: Basophil percentageon 2021 Basophil percentage 3.2 mg/dL 2.5-4.9 [facility] Work Phone: Basophils/100 WBC (Bld) 0.7 % 0-1 [facility] Work Phone: Chloride [Moles/Vol] 108 mmol/L 98-107 [facility] Work Phone: Eosinophils/100 WBC (Bld) 2.5 % 0-5 [facility] Work Phone: Glucose [Mass/Vol] 149 mg/dL 74-106 [facility] Work Phone: [phone] Comment on above: Fasting Glucose resu lt greater than or equal to 126 mg/dL suggests DIABETES MELLITUS per A.D.A. criteria. Neutrophils (Bld) [#/Vol] 6.4 10*3/uL 2.0-7.7 [facility] Work Phone: Neutrophils/100 WBC (Bld) 65.6 % 47-70 [facility] Work Phone: [phone] Potassium [Moles/Vol] 3.9 mmol/L 3.5-5.1 [facility] Work Phone: Sodium [Moles/Vol] 140 mmol/L 136-145 [facility] Work Phone: WBC (Bld) [#/Vol] 9.7 10*3/uL 4.4-11.0 [facility] Work Phone: Basophil percentage 0-5 SEEN /hpf 0-5 [facility] Work Phone: Bilirubin Test strip Ql (U)o n 05-20-2022 Bilirubin Ql (U) Negative Negative [facility] Work Phone: [phone] Blood erythrocytes count (nu mber/volume)on 05-20-2022 RBC (Bld) [#/Vol] 4.36 10*6/uL 4.6-6.2 [facility] Work Phone: Blood hemoglobin measurement (mass/volume)on 05-20-2022 Hemoglobin (Bld) [Mass/Vol] 12.9 g/dL 13.0-16.5 [facility] Work Phone: Blood lymphocytes/100 leukoc yteson 05-20-2022 Lymphocytes/100 WBC (Bld) 21.4 % 19-41 [facility] Work Phone: Blood monocytes/100 leukocyt eson 05-20-2022 Monocytes/100 WBC (Bld) 9.3 % 0-10 [facility] Work Phone: Blood platelet mean volumeon 05-20-2022 Platelet mean volume (Bld) [Entitic vol] 9.6 fL 6.2-12.0 [facility] Work Phone: Determination of erythrocyte mean corpuscular volume (MCV)on 05-20-2022 MCV (RBC) [Entitic vol] 91.5 fL 80-94 [facility] Work Phone: Hematocrit Auto (Bld) [Volum e fraction]on 05-20-2022 Hematocrit (Bld) [Volume fraction] 39.9 % 40-54 [facility] Work Phone: Ketones Test strip Ql (U)on 05-20-2022 Ketones Ql (U) Negative Negative [facility] Work Phone: Laboratory - Chemistry and C hemistry - challengeon 05-20-2022 CO2 [Moles/Vol] 26.0 mmol/L 21.0-32.0 [facility] Work Phone: Urea nitrogen/Creatinine [Mass ratio] 9.9 mg/mg 10-20 [facility] Work Phone: Laboratory - Hematology and Cell countson 05-20-2022 Erythrocyte distribution width (RBC) [Entitic vol] 45.7 fL 35.1-43.9 [facility] Work Phone: Erythrocyte distribution width (RBC) [Ratio] 13.6 % 11.6-14.6 [facility] Work Phone: Immature granulocytes/100 WBC (Bld) 0.500 % 0.0-0.9 [facility] Work Phone: Comment on above: IG% - Immature Granu locytes (promyelocytes, myelocytes and metamyelocytes) > 1% indicates that a LEFT SHIFT is Present. MCH (RBC) [Entitic mass] 29.6 pg 27.0-32.0 [facility] Work Phone: Nucleated RBC/100 WBC (Bld) [Ratio] 0 % 0-5 [facility] Work Phone: MCHC Auto (RBC) [Mass/Vol]on 05-20-2022 MCHC (RBC) [Mass/Vol] 32.3 g/dL 32-36 [facility] Work Phone: Mucus LM Ql (Urine sed)on Mucus Ql (Urine sed) 0 SEEN /hpf [facility] Work Phone: Nitrite Test strip Ql (U)on 05-20-2022 Nitrite Ql (U) Negative Negative [facility] Work Phone: No Panel Informationon 05-20 Estimated GFR (MDRD) Amer 53 mL/min >60 [facility] Work Phone: Comment on above: GFR Calc Estimated GFR (MDRD) Non-Af Amer 44 mL/min >60 [facility] Work Phone: Comment on above: Non- GFR Calc Platelets bldon 05-20-2022 Platelets (Bld) [#/Vol] 197 10*3/uL 150-450 [facility] Work Phone: Protein Test strip Ql (U)on 05-20-2022 Protein Ql (U) Negative Negative [facility] Work Phone: Serum or plasma albumin you urement (mass/volume)on 05-20-2022 Albumin [Mass/Vol] 2.7 g/dL 3.2-5.0 [facility] Work Phone: Serum or plasma calcium you urement (mass/volume)on 05-20-2022 Calcium [Mass/Vol] 9.0 mg/dL 8.5-10.1 [facility] Work Phone: Serum or plasma creatinine m easurement (mass/volume)on 05-20-2022 Creatinine [Mass/Vol] 1.71 mg/dL 0.70-1.30 [facility] Work Phone: Comment on above: The validity of the calculated GFR & GFRAA in patients over 70 years has not been determined. Clinical correlation is essential. Serum or plasma urea nitroge n measurement (mass/volume)on 05-20-2022 Urea nitrogen [Mass/Vol] 17 mg/dL 7-18 [facility] Work Phone: Squamous epithelial cells de tection in urine sediment by light microscopyon 05-20-2022 Epithelial cells.squamous LM Ql (Urine sed) 0-5 SEEN /hpf 0-5 [facility] Work Phone: Urine blood detectionon RBC Ql (U) Negative Negative [facility] Work Phone: RBC Ql (U) 0 SEEN /hpf 0-5 [facility] Work Phone: Urine clarityon 05-20-2022 Clarity (U) Clear Clear [facility] Work Phone: Urine color determinationon 05-20-2022 Color (U) Yellow Yellow [facility] Work Phone: Urine creatinine measurement (mass/volume)on 05-20-2022 Creatinine (U) [Mass/Vol] 107.00 mg/dL NO RANGE EST. [facility] Work Phone: Urine glucose detectionon Glucose Ql (U) Normal mg/dl Normal [facility] Work Phone: Urine leukocyte esterase det ection by dipstickon 05-20-2022 Leukocyte esterase Test strip Ql (U) 25 /ul Negative [facility] Work Phone: Urine pHon 05-20-2022 pH (U) 6.5 [pH] 5.0 - 8.0 [facility] Work Phone: Urine protein measurement (m ass/volume)on 05-20-2022 Protein (U) [Mass/Vol] 17.3 mg/dL 0.0-11.8 [facility] Work Phone: Urine protein/creatinine mas s ratioon 05-20-2022 Protein/Creatinine (U) [Mass ratio] 162 mg/g CRE 0-200 [facility] Work Phone: Urine sediment bacteria coun t by microscopy (number/high power field)on 05-20-2022 Bacteria LM.HPF (Urine sed) [#/Area] 0 /[HPF] None Seen [facility] Work Phone: Urine specific gravity measu rementon 05-20-2022 Specific gravity (U) [Rel density] 1.010 1.002-1.030 [facility] Work Phone: [phone] Urobilinogen Auto test strip Ql (U)on 05-20-2022 Urobilinogen Ql (U) Normal mg/dl Normal [facility] Work Phone: No Panel Informationon 05-05 [facility] Absolute lymphocyte counton 04-27-2022 Lymphocytes Auto (Unsp spec) [#/Vol] 2.36 10*3/uL 0.83-4.51 [facility] Work Phone: Basophil percentageon 2021 Basophil percentage 4.6 mg/dL 2.5-4.9 [facility]: Basophils/100 WBC (Bld) 0.3 % 0-1 [facility] Work Phone: Chloride [Moles/Vol] 104 mmol/L 98-107 [facility]: Eosinophils/100 WBC (Bld) 0.1 % 0-5 [facility] Work Phone: Glucose [Mass/Vol] 190 mg/dL 74-106 [facility] Work Phone: Comment on above: Fasting Glucose resu lt greater than or equal to 126 mg/dL suggests DIABETES MELLITUS per A.D.A. criteria. Neutrophils (Bld) [#/Vol] 10.5 10*3/uL 2.0-7.7 [facility] Work Phone: Neutrophils/100 WBC (Bld) 72.0 % 47-70 [facility] Work Phone: [phone] Potassium [Moles/Vol] 3.8 mmol/L 3.5-5.[address] [facility] Work Phone: Sodium [Moles/Vol] 140 mmol/L 136-145 [facility] Work Phone: WBC (Bld) [#/Vol] 14.5 10*3/uL 4.4-11.0 [facility] Work [facility]: Blood erythrocytes count (nu mber/volume)on 04-27-2022 RBC (Bld) [#/Vol] 4.56 10*6/uL 4.6-6.2 [facility] Work Phone: Blood hemoglobin measurement (mass/volume)on 04-27-2022 Hemoglobin (Bld) [Mass/Vol] 13.4 g/dL 13.0-16.5 [facility] Work Phone: Blood lymphocytes/100 leukoc yteson 04-27-2022 Lymphocytes/100 WBC (Bld) 16.3 % 19-41 [facility] Work Phone: Blood monocytes/100 leukocyt eson 04-27-2022 Monocytes/100 WBC (Bld) 7.6 % 0-10 [facility] Work Phone: Blood platelet mean volumeon 04-27-2022 Platelet mean volume (Bld) [Entitic vol] 9.2 fL 6.2-12.0 [facility] Work Phone: Determination of erythrocyte mean corpuscular volume (MCV)on 04-27-2022 MCV (RBC) [Entitic vol] 91.0 fL 80-94 [facility] Work Phone: Hematocrit Auto (Bld) [Volum e fraction]on 04-27-2022 Hematocrit (Bld) [Volume fraction] 41.5 % 40-54 [facility] Work Phone: Laboratory - Chemistry and C hemistry - challengeon 04-27-2022 CO2 [Moles/Vol] 28.0 mmol/L 21.0-32.0 [facility] Work Phone: Urea nitrogen/Creatinine [Mass ratio] 13.4 mg/mg 10-20 [facility] Work Phone: Laboratory - Hematology and Cell countson 04-27-2022 Erythrocyte distribution width (RBC) [Entitic vol] 45.7 fL 35.1-43.9 [facility] Work Phone: Erythrocyte distribution width (RBC) [Ratio] 13.7 % 11.6-14.6 [facility] Work Phone: Immature granulocytes/100 WBC (Bld) 3.700 % 0.0-0.9 [facility] Work Phone: Comment on above: IG% - Immature Granu locytes (promyelocytes, myelocytes and metamyelocytes) > 1% indicates that a LEFT SHIFT is Present. MCH (RBC) [Entitic mass] 29.4 pg 27.0-32.0 [facility] Work Phone: Nucleated RBC/100 WBC (Bld) [Ratio] 0.1 % 0-5 [facility] Work Phone: MCHC Auto (RBC) [Mass/Vol]on 04-27-2022 MCHC (RBC) [Mass/Vol] 32.3 g/dL 32-36 [facility] Work Phone: No Panel Informationon 04-27 Estimated GFR (MDRD) Amer 44 mL/min >60 [facility] Work Phone: Comment on above: GFR Calc Estimated GFR (MDRD) Non-Af Amer 36 mL/min >60 [facility] Work Phone: Comment on above: Non- GFR Calc [place] Level 0.50 mmol/L 0.60-1.20 [facility] Work Phone: Platelets bldon 04-27-2022 Platelets (Bld) [#/Vol] 243 10*3/uL 150-450 [facility] Work Phone: Serum or plasma albumin you urement (mass/volume)on 04-27-2022 Albumin [Mass/Vol] 2.9 g/dL 3.2-5.0 [facility] Work Phone: Serum or plasma calcium you urement (mass/volume)on 04-27-2022 Calcium [Mass/Vol] 9.3 mg/dL 8.5-10.1 [facility] Work Phone: Serum or plasma creatinine m easurement (mass/volume)on 04-27-2022 Creatinine [Mass/Vol] 2.02 mg/dL 0.70-1.[address] [facility] Work Phone: Comment on above: The validity of the calculated GFR & GFRAA in patients over 70 years has not been determined. Clinical correlation is essential. Serum or plasma urea nitroge n measurement (mass/volume)on 04-27-2022 Urea nitrogen [Mass/Vol] 27 mg/dL 7-18 [facility] Work Phone: Serum or plasma uric acid me asurement (mass/volume)on 04-27-2022 Urate [Mass/Vol] 6.5 mg/dL 3.5-7.2 [facility] Work Phone: Comment on above: The drugs N-Acetylcy steine and Metamizole may falsely depress this assay. Urine creatinine measurement (mass/volume)on 04-27-2022 Creatinine (U) [Mass/Vol] 69.70 mg/dL NO RANGE EST. [facility] Work Phone: Urine protein measurement (m ass/volume)on 04-27-2022 Protein (U) [Mass/Vol] 10.2 mg/dL 0.0-11.8 [facility] Work Phone: Urine protein/creatinine mas s ratioon 04-27-2022 Protein/Creatinine (U) [Mass ratio] 146 mg/g CRE 0-200 [facility] Work Phone: Basophil percentageon 2021 Basophil percentage 4.2 mg/dL 2.5-4.9 [facility] Work Phone: Chloride [Moles/Vol] 107 mmol/L 98-[address] [facility] Work Phone: Glucose [Mass/Vol] 129 mg/dL 74-106 [facility] Work Phone: Comment on above: Fasting Glucose resu lt greater than or equal to 126 mg/dL suggests DIABETES MELLITUS per A.D.A. criteria. Potassium [Moles/Vol] 3.8 mmol/L 3.5-5.1 [facility] Work Phone: Sodium [Moles/Vol] 140 mmol/L 136-145 [facility] Work Phone: Basophil percentage 25-50 SEEN /hpf 0-5 [facility] Work Phone: Bilirubin Test strip Ql (U)o n 04-22-2022 Bilirubin Ql (U) Negative Negative [facility] Work Phone: Culture, urineon 04-22-2022 Bacteria identified Cx Nom (U) Positive [facility] Work Phone: Ketones Test strip Ql (U)on 04-22-2022 Ketones Ql (U) Negative Negative [facility] Work Phone: Laboratory - Chemistry and C hemistry - challengeon 04-22-2022 CO2 [Moles/Vol] 27.0 mmol/L 21.0-32.0 [facility] Work Phone: Urea nitrogen/Creatinine [Mass ratio] 8.2 mg/mg 10-20 [facility] Work Phone: Mucus LM Ql (Urine sed)on Mucus Ql (Urine sed) 0 SEEN /hpf [facility] Work Phone: Nitrite Test strip Ql (U)on 04-22-2022 Nitrite Ql (U) Negative Negative [facility] Work Phone: No Panel Informationon 04-22 Estimated GFR (MDRD) Amer 53 mL/min >60 [facility] Work Phone: Comment on above: GFR Calc Estimated GFR (MDRD) Non-Af Amer 44 mL/min >60 [facility] Work Phone: Comment on above: Non- GFR Calc Protein Test strip Ql (U)on 04-22-2022 Protein Ql (U) 15 mg/dl Negative [facility] Work Phone: Serum or plasma albumin you urement (mass/volume)on 04-22-2022 Albumin [Mass/Vol] 2.6 g/dL 3.2-5.0 [facility] Work Phone: Serum or plasma calcium you urement (mass/volume)on 04-22-2022 Calcium [Mass/Vol] 9.1 mg/dL 8.5-10.1 [facility] Work Phone: Serum or plasma creatinine m easurement (mass/volume)on 04-22-2022 Creatinine [Mass/Vol] 1.71 mg/dL 0.70-1.30 [facility] Work Phone: Comment on above: The validity of the calculated GFR & GFRAA in patients over 70 years has not been determined. Clinical correlation is essential. Serum or plasma urea nitroge n measurement (mass/volume)on 04-22-2022 Urea nitrogen [Mass/Vol] 14 mg/dL 7-18 [facility] Work Phone: Squamous epithelial cells de tection in urine sediment by light microscopyon 04-22-2022 Epithelial cells.squamous LM Ql (Urine sed) 0-5 SEEN /hpf 0-5 [facility] Work Phone: Urine blood detectionon RBC Ql (U) 10 /ul Negative [facility] Work Phone: RBC Ql (U) 0-5 SEEN /hpf 0-5 [facility] Work Phone: Urine clarityon 04-22-2022 Clarity (U) Clear Clear [facility] Work Phone: Urine color determinationon 04-22-2022 Color (U) Yellow Yellow [facility] Work Phone: Urine creatinine measurement (mass/volume)on 04-22-2022 Creatinine (U) [Mass/Vol] 171.00 mg/dL NO RANGE EST. [facility] Work Phone: Urine glucose detectionon Glucose Ql (U) Normal mg/dl Normal [facility] Work Phone: Urine leukocyte esterase det ection by dipstickon 04-22-2022 Leukocyte esterase Test strip Ql (U) 500 /ul Negative [facility] Work Phone: Urine pHon 04-22-2022 pH (U) 6.0 [pH] 5.0 - 8.0 [facility] Work Phone: Urine protein measurement (m ass/volume)on 04-22-2022 Protein (U) [Mass/Vol] 30.4 mg/dL 0.0-11.8 [facility] Work Phone: Urine protein/creatinine mas s ratioon 04-22-2022 Protein/Creatinine (U) [Mass ratio] 178 mg/g CRE 0-200 [facility] Work Phone: Urine sediment bacteria coun t by microscopy (number/high power field)on 04-22-2022 Bacteria LM.HPF (Urine sed) [#/Area] 0 /[HPF] None Seen [facility] Work Phone: Urine specific gravity measu rementon 04-22-2022 Specific gravity (U) [Rel density] 1.015 1.002-1.030 [facility] Work Phone: Urobilinogen Auto test strip Ql (U)on 04-22-2022 Urobilinogen Ql (U) Normal mg/dl Normal [facility] Work Phone: Absolute lymphocyte counton 04-21-2022 Lymphocytes Auto (Unsp spec) [#/Vol] 2.19 10*3/uL 0.83-4.51 [facility] Work Phone: Basophil percentageon 2021 Basophils/100 WBC (Bld) 0.6 % 0-1 [facility] Work Phone: Eosinophils/100 WBC (Bld) 2.4 % 0-5 [facility] Work Phone: [phone] Neutrophils (Bld) [#/Vol] 5.3 10*3/uL 2.0-7.7 [facility] Work Phone: Neutrophils/100 WBC (Bld) 60.5 % 47-70 [facility] Work Phone: WBC (Bld) [#/Vol] 8.8 10*3/uL 4.4-11.0 [facility] Work Phone: Blood erythrocytes count (nu mber/volume)on 04-21-2022 RBC (Bld) [#/Vol] 4.29 10*6/uL 4.6-6.2 [facility] Work Phone: Blood hemoglobin measurement (mass/volume)on 04-21-2022 Hemoglobin (Bld) [Mass/Vol] 12.9 g/dL 13.0-16.5 [facility] Work Phone: Blood lymphocytes/100 leukoc yteson 04-21-2022 Lymphocytes/100 WBC (Bld) 24.9 % 19-41 [facility] Work Phone: Blood monocytes/100 leukocyt eson 04-21-2022 Monocytes/100 WBC (Bld) 11.4 % 0-10 [facility] Work Phone: Blood platelet mean volumeon 04-21-2022 Platelet mean volume (Bld) [Entitic vol] 9.5 fL 6.2-12.0 [facility] Work Phone: Determination of erythrocyte mean corpuscular volume (MCV)on 04-21-2022 MCV (RBC) [Entitic vol] 92.1 fL 80-94 [facility] Work Phone: Hematocrit Auto (Bld) [Volum e fraction]on 04-21-2022 Hematocrit (Bld) [Volume fraction] 39.5 % 40-54 [facility] Work Phone: Laboratory - Hematology and Cell countson 06-08-2022 Erythrocyte distribution width (RBC) [Entitic vol] 45.9 fL 35.1-43.9 [facility] Work Phone: Erythrocyte distribution width (RBC) [Ratio] 13.5 % 11.6-14.6 [facility] Work Phone: Immature granulocytes/100 WBC (Bld) 0.200 % 0.0-0.9 [facility] Work Phone: Comment on above: IG% - Immature Granu locytes (promyelocytes, myelocytes and metamyelocytes) > 1% indicates that a LEFT SHIFT is Present. MCH (RBC) [Entitic mass] 30.1 pg 27.0-32.0 [facility] Work Phone: Nucleated RBC/100 WBC (Bld) [Ratio] 0 % 0-5 [facility] Work Phone: MCHC Auto (RBC) [Mass/Vol]on 04-21-2022 MCHC (RBC) [Mass/Vol] 32.7 g/dL 32-36 [facility] Work Phone: Platelets bldon 04-21-2022 Platelets (Bld) [#/Vol] 199 10*3/uL 150-450 [facility] Work Phone: Serum or plasma uric acid me asurement (mass/volume)on 04-21-2022 Urate [Mass/Vol] 6.2 mg/dL 3.5-7.2 [facility] Work Phone: Comment on above: The drugs N-Acetylcy steine and Metamizole may falsely depress this assay. Laboratory - Microbiology an d Antimicrobial susceptibilityon 04-06-2022 SARS-CoV-2 (COVID-19) RNA AMANDO+probe Ql (Unsp spec) Detected Not Detect [facility] Work Phone: Comment on above: Normal Reference Ran ge: Not DetectedMethod:(RT-PCR) real-time reverse transcriptase PCRLuminex MORGAN Instrument*The Food and Drug Administration (FDA) has issued an Emergency Use Authorization (EAU) for the MORGAN SARS-CoV-2 Assay for the rapid detection of the virus that causes COVID-19. This test has been validated, but the [facility] review of this validation is [...] Auto (Unsp spec) [#/Vol] 1.96 10*3/uL 0.83-4.51 [facility] Work Phone: Basophil percentageon 2021 Basophils/100 WBC (Bld) 0.6 % 0-1 [facility] Work Phone: Chloride [Moles/Vol] 103 mmol/L 98-107 [facility] Work Phone: Eosinophils/100 WBC (Bld) 0.6 % 0-5 [facility] Work Phone: Glucose [Mass/Vol] 133 mg/dL 74-106 [facility] Work Phone: [phone] Comment on above: Fasting Glucose resu lt greater than or equal to 126 mg/dL suggests DIABETES MELLITUS per A.D.A. criteria. Neutrophils (Bld) [#/Vol] 7.3 10*3/uL 2.0-7.7 [facility] Work Phone: Neutrophils/100 WBC (Bld) 64.6 % 47-70 [facility] Work Phone: Potassium [Moles/Vol] 3.5 mmol/L 3.5-5.1 [facility] Work Phone: Sodium [Moles/Vol] 138 mmol/L 136-145 [facility] Work Phone: WBC (Bld) [#/Vol] 11.3 10*3/uL 4.4-11.0 [facility] Work Phone: Blood erythrocytes count (nu mber/volume)on 04-02-2022 RBC (Bld) [#/Vol] 4.81 10*6/uL 4.6-6.2 [facility] Work Phone: Blood hemoglobin measurement (mass/volume)on 04-02-2022 Hemoglobin (Bld) [Mass/Vol] 14.4 g/dL 13.0-16.5 [facility] Work Phone: Blood lymphocytes/100 leukoc yteson 04-02-2022 Lymphocytes/100 WBC (Bld) 17.3 % 19-41 [facility] Work Phone: Blood monocytes/100 leukocyt eson 04-02-2022 Monocytes/100 WBC (Bld) 15.7 % 0-10 [facility] Work Phone: Blood platelet mean volumeon 04-02-2022 Platelet mean volume (Bld) [Entitic vol] 10.0 fL 6.2-12.0 [facility] Work Phone: Determination of erythrocyte mean corpuscular volume (MCV)on 04-02-2022 MCV (RBC) [Entitic vol] 91.7 fL 80-94 [facility] Work Phone: Hematocrit Auto (Bld) [Volum e fraction]on 04-02-2022 Hematocrit (Bld) [Volume fraction] 44.1 % 40-54 [facility] Work Phone: Laboratory - Chemistry and C hemistry - challengeon 04-02-2022 CO2 [Moles/Vol] 26.0 mmol/L 21.0-32.0 [facility] Work Phone: Urea nitrogen/Creatinine [Mass ratio] 14.1 mg/mg 09-02 [facility] Work Phone: Laboratory - Hematology and Cell countson 04-02-2022 Erythrocyte distribution width (RBC) [Entitic vol] 47.8 fL 35.1-43.9 [facility] Work Phone: Erythrocyte distribution width (RBC) [Ratio] 14.0 % 11.6-14.6 [facility] Work Phone: Immature granulocytes/100 WBC (Bld) 1.200 % 0.0-0.9 [facility] Work Phone: Comment on above: IG% - Immature Granu locytes (promyelocytes, myelocytes and metamyelocytes) > 1% indicates that a LEFT SHIFT is Present. MCH (RBC) [Entitic mass] 29.9 pg 27.0-32.0 [facility] Work Phone: Nucleated RBC/100 WBC (Bld) [Ratio] 0 % 0-5 [facility] Work Phone: MCHC Auto (RBC) [Mass/Vol]on 04-02-2022 MCHC (RBC) [Mass/Vol] 32.7 g/dL 32-36 [facility] Work Phone: No Panel Informationon 04-02 Estimated GFR (MDRD) Amer 51 mL/min >60 [facility] Work Phone: Comment on above: GFR Calc Estimated GFR (MDRD) Non-Af Amer 42 mL/min >60 [facility] Work Phone: Comment on above: Non- GFR Calc Platelets bldon 04-02-2022 Platelets (Bld) [#/Vol] 160 10*3/uL 150-450 [facility] Work Phone: Review by pathologiston 03-15 Pathologist review Crispin (Unsp spec) [Interp] Reviewed [facility] Work Phone: Comment on above: Previous reported re sult: Bonnie kincaid Edited by: RGOOD on 04/06/22:912Leukocytosis. Tuan Servin M.D. 04/06/22 AMENDED REPORT 04/06/22912 PATH REV previously reported as: Bonnie kincaid Serum or plasma calcium you urement (mass/volume)on 04-02-2022 Calcium [Mass/Vol] 9.0 mg/dL 8.5-10.1 [facility] Work Phone: Serum or plasma creatinine m easurement (mass/volume)on 04-02-2022 Creatinine [Mass/Vol] 1.77 mg/dL 0.70-1.30 [facility] Work Phone: Comment on above: The validity of the calculated GFR & GFRAA in patients over 70 years has not been determined. Clinical correlation is essential. Serum or plasma urea nitroge n measurement (mass/volume)on 04-02-2022 Urea nitrogen [Mass/Vol] 25 mg/dL 7-18 [facility] Work Phone: Thin prep Papanicolaou smear with manual screeningon 04-02-2022 Thin prep Papanicolaou smear with manual screening 9 5-15 [facility] Work Phone: Absolute lymphocyte counton 03-25-2022 Lymphocytes Auto (Unsp spec) [#/Vol] 2.80 10*3/uL 0.83-4.51 [facility] Work Phone: Basophil percentageon 2021 Basophil percentage 4.0 mg/dL 2.5-4.9 [facility] Work Phone: Basophils/100 WBC (Bld) 0.6 % 0-1 [facility] Work Phone: Chloride [Moles/Vol] 106 mmol/L 98-107 [facility] Work Phone: Eosinophils/100 WBC (Bld) 1.7 % 0-5 [facility] Work Phone: Glucose [Mass/Vol] 164 mg/dL 74-106 [facility] Work Phone: Comment on above: Fasting Glucose resu lt greater than or equal to 126 mg/dL suggests DIABETES MELLITUS per A.D.A. criteria. Neutrophils (Bld) [#/Vol] 5.6 10*3/uL 2.0-7.7 [facility] Work Phone: Neutrophils/100 WBC (Bld) 56.9 % 47-70 [facility] Work Phone: Potassium [Moles/Vol] 3.8 mmol/L 3.5-5.1 [facility] Work Phone: Sodium [Moles/Vol] 139 mmol/L 136-[facility] Work Phone: WBC (Bld) [#/Vol] 9.8 10*3/uL 4.4-11.[facility] Work Phone: Basophil percentage 0-5 SEEN /hpf 0-5 [facility] Work Phone: Bilirubin Test strip Ql (U)o n 03-25-2022 Bilirubin Ql (U) Negative Negative [facility] Work Phone: Blood erythrocytes count (nu mber/volume)on 03-25-2022 RBC (Bld) [#/Vol] 4.77 10*6/uL 4.6-6.[facility]: Blood hemoglobin measurement (mass/volume)on 03-25-2022 Hemoglobin (Bld) [Mass/Vol] 14.1 g/dL 13.0-16.5 [facility] Work Phone: Blood lymphocytes/100 leukoc yteson 03-25-2022 Lymphocytes/100 WBC (Bld) 28.7 % 19-41 [facility] Work Phone: Blood monocytes/100 leukocyt eson 03-25-2022 Monocytes/100 WBC (Bld) 9.2 % 0-10 [facility] Work Phone: Blood platelet mean volumeon 03-25-2022 Platelet mean volume (Bld) [Entitic vol] 9.3 fL 6.2-12.0 [facility] Work Phone: Determination of erythrocyte mean corpuscular volume (MCV)on 03-25-2022 MCV (RBC) [Entitic vol] 91.4 fL 80-94 [facility] Work Phone: [phone] Hematocrit Auto (Bld) [Volum e fraction]on 03-25-2022 Hematocrit (Bld) [Volume fraction] 43.6 % 40-54 [facility] Work Phone: Ketones Test strip Ql (U)on 03-25-2022 Ketones Ql (U) Negative Negative [facility] Work Phone: Laboratory - Chemistry and C hemistry - challengeon 03-25-2022 CO2 [Moles/Vol] 26.0 mmol/L 21.0-32.0 [facility] Work Phone: Urea nitrogen/Creatinine [Mass ratio] 15.4 mg/mg 10-20 [facility] Work Phone: Laboratory - Hematology and Cell countson 03-25-2022 Erythrocyte distribution width (RBC) [Entitic vol] 45.9 fL 35.1-43.9 [facility] Work Phone: Erythrocyte distribution width (RBC) [Ratio] 13.6 % 11.6-14.6 [facility] Work Phone: Immature granulocytes/100 WBC (Bld) 2.900 % 0.0-0.9 [facility] Work Phone: Comment on above: IG% - Immature Granu locytes (promyelocytes, myelocytes and metamyelocytes) > 1% indicates that a LEFT SHIFT is Present. MCH (RBC) [Entitic mass] 29.6 pg 27.0-32.0 [facility] Work Phone: Nucleated RBC/100 WBC (Bld) [Ratio] 0 % 0-5 [facility] Work Phone: MCHC Auto (RBC) [Mass/Vol]on 03-25-2022 MCHC (RBC) [Mass/Vol] 32.3 g/dL 32-36 [facility] Work Phone: Mucus LM Ql (Urine sed)on Mucus Ql (Urine sed) 0 SEEN /hpf [facility] Work Phone: Nitrite Test strip Ql (U)on 03-25-2022 Nitrite Ql (U) Negative Negative [facility] Work Phone: No Panel Informationon 03-25 Estimated GFR (MDRD) Amer 52 mL/min >60 [facility] Work Phone: Comment on above: GFR Calc Estimated GFR (MDRD) Non-Af Amer 43 mL/min >60 [facility] Work Phone: Comment on above: Non- GFR Calc Platelets bldon 03-25-2022 Platelets (Bld) [#/Vol] 276 10*3/uL 150-450 [facility] Work Phone: Protein Test strip Ql (U)on 03-25-2022 Protein Ql (U) Negative Negative [facility] Work Phone: Serum or plasma albumin you urement (mass/volume)on 03-25-2022 Albumin [Mass/Vol] 2.9 g/dL 3.2-5.0 [facility] Work Phone: Serum or plasma calcium you urement (mass/volume)on 03-25-2022 Calcium [Mass/Vol] 8.7 mg/dL 8.5-10.1 [facility] Work Phone: Serum or plasma creatinine m easurement (mass/volume)on 03-25-2022 Creatinine [Mass/Vol] 1.75 mg/dL 0.70-1.30 [facility] Work Phone: Comment on above: The validity of the calculated GFR & GFRAA in patients over 70 years has not been determined. Clinical correlation is essential. Serum or plasma urea nitroge n measurement (mass/volume)on 03-25-2022 Urea nitrogen [Mass/Vol] 27 mg/dL 7-18 [facility] Work Phone: Squamous epithelial cells de tection in urine sediment by light microscopyon 03-25-2022 Epithelial cells.squamous LM Ql (Urine sed) 0-5 SEEN /hpf 0-5 [facility] Work Phone: Urine blood detectionon 03-14 RBC Ql (U) Negative Negative [facility] Work Phone: RBC Ql (U) 0 SEEN /hpf 0-5 [facility] Work Phone: Urine clarityon 03-25-2022 Clarity (U) Sl. Cloudy Clear [facility] Work Phone: Urine color determinationon 03-25-2022 Color (U) Yellow Yellow [facility] Work Phone: Urine creatinine measurement (mass/volume)on 03-25-2022 Creatinine (U) [Mass/Vol] 90.50 mg/dL NO RANGE EST. [facility] Work Phone: Urine glucose detectionon Glucose Ql (U) Normal mg/dl Normal [facility] Work Phone: Urine leukocyte esterase det ection by dipstickon 03-25-2022 Leukocyte esterase Test strip Ql (U) 25 /ul Negative [facility] Work Phone: Urine pHon 03-25-2022 pH (U) 6.0 [pH] 5.0 - 8.0 [facility] Work Phone: Urine protein measurement (m ass/volume)on 03-25-2022 Protein (U) [Mass/Vol] 15.8 mg/dL 0.0-11.8 [facility] Work Phone: Urine protein/creatinine mas s ratioon 03-25-2022 Protein/Creatinine (U) [Mass ratio] 175 mg/g CRE 0-200 [facility] Work Phone: Urine sediment bacteria coun t by microscopy (number/high power field)on 03-25-2022 Bacteria LM.HPF (Urine sed) [#/Area] 0 /[HPF] None Seen [facility] Work Phone: Urine specific gravity measu rementon 03-25-2022 Specific gravity (U) [Rel density] 1.015 1.002-1.030 [facility] Work Phone: Urobilinogen Auto test strip Ql (U)on 03-25-2022 Urobilinogen Ql (U) Normal mg/dl Normal [facility] Work Phone: Serum or plasma uric acid me asurement (mass/volume)on 03-19-2022 Urate [Mass/Vol] 8.3 mg/dL 3.5-7.2 [facility] Work Phone: Comment on above: The drugs N-Acetylcy steine and Metamizole may falsely depress this assay. Absolute lymphocyte counton 02-25-2022 Lymphocytes Auto (Unsp spec) [#/Vol] 2.27 10*3/uL 0.83-4.51 [facility] Work Phone: Basophil percentageon 2021 Basophil percentage 0 SEEN /hpf 0-5 [facility] Work Phone: [phone] Basophil percentage 4.3 mg/dL 2.5-4.9 [facility] Work Phone: Basophils/100 WBC (Bld) 0.3 % 0-1 [facility] Work Phone: Chloride [Moles/Vol] 102 mmol/L 98-107 [facility] Work Phone: Eosinophils/100 WBC (Bld) 0.2 % 0-5 [facility] Work Phone: Glucose [Mass/Vol] 107 mg/dL 74-106 [facility] Work Phone: Comment on above: Fasting Glucose resu lt from 100 to 125 mg/dL suggests IMPAIRED HOMEOSTASIS per A.D.A. criteria. Neutrophils (Bld) [#/Vol] 7.8 10*3/uL 2.0-7.7 [facility] Work Phone: Neutrophils/100 WBC (Bld) 67.9 % 47-70 [facility] Work Phone: Potassium [Moles/Vol] 4.1 mmol/L 3.5-5.1 [facility] Work Phone: Comment on above: Moderate Hemolysis, Result may be falsely increased. Sodium [Moles/Vol] 137 mmol/L 136-145 [facility] Work Phone: WBC (Bld) [#/Vol] 11.6 10*3/uL 4.4-11.0 [facility] Work Phone: Bilirubin Test strip Ql (U)o n 02-25-2022 Bilirubin Ql (U) Negative Negative [facility] Work Phone: Blood erythrocytes count (nu mber/volume)on 02-25-2022 RBC (Bld) [#/Vol] 4.09 10*6/uL 4.6-6.2 [facility] Work Phone: Blood hemoglobin measurement (mass/volume)on 02-25-2022 Hemoglobin (Bld) [Mass/Vol] 12.0 g/dL 13.0-16.5 [facility] Work Phone: Blood lymphocytes/100 leukoc yteson 02-25-2022 Lymphocytes/100 WBC (Bld) 19.7 % 19-41 [facility] Work Phone: Blood monocytes/100 leukocyt eson 02-25-2022 Monocytes/100 WBC (Bld) 9.0 % 0-10 [facility] Work Phone: Blood platelet adequacy dete ction by light microscopyon 02-25-2022 Platelets LM Ql (Bld) ADEQUATE ADEQ [facility] Work Phone: Blood platelet mean volumeon 02-25-2022 Platelet mean volume (Bld) [Entitic vol] 9.9 fL 6.2-12.0 [facility] Work Phone: Culture, urineon 02-25-2022 Bacteria identified Cx Nom (U) Culture exhibits no growth. [facility] Work Phone: Determination of erythrocyte mean corpuscular volume (MCV)on 02-25-2022 MCV (RBC) [Entitic vol] 90.2 fL 80-94 [facility] Work Phone: Hematocrit Auto (Bld) [Volum e fraction]on 02-25-2022 Hematocrit (Bld) [Volume fraction] 36.9 % 40-54 [facility] Work Phone: Ketones Test strip Ql (U)on 02-25-2022 Ketones Ql (U) Negative Negative [facility] Work Phone: Laboratory - Chemistry and C hemistry - challengeon 02-25-2022 CO2 [Moles/Vol] 26.0 mmol/L 21.0-32.0 [facility] Work Phone: Urea nitrogen/Creatinine [Mass ratio] 18.6 mg/mg 10-20 [facility] Work Phone: Laboratory - Hematology and Cell countson 02-25-2022 Erythrocyte distribution width (RBC) [Entitic vol] 46.8 fL 35.1-43.9 [facility] Work Phone: Erythrocyte distribution width (RBC) [Ratio] 14.1 % 11.6-14.6 [facility] Work Phone: Immature granulocytes/100 WBC (Bld) 2.900 % 0.0-0.9 [facility] Work Phone: Comment on above: IG% - Immature Granu locytes (promyelocytes, myelocytes and metamyelocytes) > 1% indicates that a LEFT SHIFT is Present. MCH (RBC) [Entitic mass] 29.3 pg 27.0-32.0 [facility] Work Phone: Nucleated RBC/100 WBC (Bld) [Ratio] 0 % 0-5 [facility] Work Phone: MCHC Auto (RBC) [Mass/Vol]on 02-25-2022 MCHC (RBC) [Mass/Vol] 32.5 g/dL 32-36 [facility] Work Phone: Mucus LM Ql (Urine sed)on Mucus Ql (Urine sed) 0 SEEN /hpf [facility] Work Phone: Nitrite Test strip Ql (U)on 02-25-2022 Nitrite Ql (U) Negative Negative [facility] Work Phone: No Panel Informationon 02-25 Estimated GFR (MDRD) Amer 43 mL/min >60 [facility] Work Phone: Comment on above: GFR Calc Estimated GFR (MDRD) Non-Af Amer 36 mL/min >60 [facility] Work Phone: Comment on above: Non- GFR Calc [place] Level 0.50 mmol/L 0.60-1.20 [facility] Work Phone: Platelets bldon 02-25-2022 Platelets (Bld) [#/Vol] TNP [facility] Work Phone: Comment on above: Test not performedPl ease note: For this sample, a platelet estimate is provided rather than a platelet count due to platelet clumping. Other parameters associated with this sample are not affected by platelet clumping. If a more accurate platelet count is required, a redraw of the patient will be necessary.Previous reported result: [id number] by: RUPERTO on 02/25/22:1032 AMENDED REPORT 02/25/22 1032 PLT previously reported as: 202 K/mm3 Protein Test strip Ql (U)on 02-25-2022 Protein Ql (U) Negative Negative [facility] Work Phone: Serum or plasma albumin you urement (mass/volume)on 02-25-2022 Albumin [Mass/Vol] 3.2 g/dL 3.2-5.0 [facility] Work Phone: Serum or plasma calcium you urement (mass/volume)on 02-25-2022 Calcium [Mass/Vol] 8.4 mg/dL 8.5-10.1 [facility] Work Phone: Serum or plasma creatinine m easurement (mass/volume)on 02-25-2022 Creatinine [Mass/Vol] 2.04 mg/dL 0.70-1.30 [facility] Work Phone: Comment on above: The validity of the calculated GFR & GFRAA in patients over 70 years has not been determined. Clinical correlation is essential. Serum or plasma urea nitroge n measurement (mass/volume)on 02-25-2022 Urea nitrogen [Mass/Vol] 38 mg/dL 7-18 [facility] Work Phone: Serum or plasma uric acid me asurement (mass/volume)on 02-25-2022 Urate [Mass/Vol] 7.8 mg/dL 3.5-7.2 [facility] Work Phone: Comment on above: The drugs N-Acetylcy steine and Metamizole may falsely depress this assay. Squamous epithelial cells de tection in urine sediment by light microscopyon 02-25-2022 Epithelial cells.squamous LM Ql (Urine sed) 0 SEEN /hpf 0-5 [facility] Work Phone: Urine blood detectionon 02-12 RBC Ql (U) Negative Negative [facility] Work Phone: RBC Ql (U) 0 SEEN /hpf 0-5 [facility] Work Phone: Urine clarityon 02-25-2022 Clarity (U) Clear Clear [facility] Work Phone: Urine color determinationon 02-25-2022 Color (U) Yellow Yellow [facility] Work Phone: Urine creatinine measurement (mass/volume)on 02-25-2022 Creatinine (U) [Mass/Vol] 82.80 mg/dL NO RANGE EST. [facility] Work Phone: Urine glucose detectionon Glucose Ql (U) Normal mg/dl Normal [facility] Work Phone: Urine leukocyte esterase det ection by dipstickon 02-25-2022 Leukocyte esterase Test strip Ql (U) 25 /ul Negative [facility] Work Phone: Urine pHon 02-25-2022 pH (U) 6.0 [pH] 5.0 - 8.0 [facility] Work Phone: Urine protein measurement (m ass/volume)on 02-25-2022 Protein (U) [Mass/Vol] 13.8 mg/dL 0.0-11.8 [facility] Work Phone: Urine protein/creatinine mas s ratioon 02-25-2022 Protein/Creatinine (U) [Mass ratio] 167 mg/g CRE 0-200 [facility] Work Phone: Urine sediment bacteria coun t by microscopy (number/high power field)on 02-25-2022 Bacteria LM.HPF (Urine sed) [#/Area] 0 /[HPF] None Seen [facility] Work Phone: Urine specific gravity measu rementon 02-25-2022 Specific gravity (U) [Rel density] 1.020 1.002-1.030 [facility] Work Phone: Urobilinogen Auto test strip Ql (U)on 02-25-2022 Urobilinogen Ql (U) Normal mg/dl Normal [facility] Work Phone: Basophil percentageon 2021 Chloride [Moles/Vol] 110 mmol/L 98-107 [facility] Work Phone: Glucose [Mass/Vol] 125 mg/dL 74-106 [facility] Work Phone: Comment on above: Fasting Glucose resu lt from 100 to 125 mg/dL suggests IMPAIRED HOMEOSTASIS per A.D.A. criteria. Potassium [Moles/Vol] 4.1 mmol/L 3.5-5.1 [facility] Work Phone: Sodium [Moles/Vol] 139 mmol/L 136-145 [facility] Work Phone: Erythrocyte sedimentation ra meredith 02-18-2022 ESR (Bld) [Velocity] 12 mm/h 0-20 [facility] Work Phone: Laboratory - Chemistry and C hemistry - challengeon 02-18-2022 CO2 [Moles/Vol] 24.0 mmol/L 21.0-32.0 [facility] Work Phone: Urea nitrogen/Creatinine [Mass ratio] 11.8 mg/mg 10-20 [facility] Work Phone: No Panel Informationon 02-18 Estimated GFR (MDRD) Amer 48 mL/min >60 [facility] Work Phone: Comment on above: GFR Calc Estimated GFR (MDRD) Non-Af Amer 40 mL/min >60 [facility] Work Phone: Comment on above: Non- GFR Calc Serum or plasma calcium you urement (mass/volume)on 02-18-2022 Calcium [Mass/Vol] 8.7 mg/dL 8.5-10.1 [facility] Work Phone: Serum or plasma creatinine m easurement (mass/volume)on 02-18-2022 Creatinine [Mass/Vol] 1.86 mg/dL 0.70-1.30 [facility] Work Phone: Comment on above: The validity of the calculated GFR & GFRAA in patients over 70 years has not been determined. Clinical correlation is essential. Serum or plasma urea nitroge n measurement (mass/volume)on 02-18-2022 Urea nitrogen [Mass/Vol] 22 mg/dL 7-18 [facility] Work Phone: Serum or plasma uric acid me asurement (mass/volume)on 02-18-2022 Urate [Mass/Vol] 7.2 mg/dL 3.5-7.2 [facility] Work Phone: Comment on above: The drugs N-Acetylcy steine and Metamizole may falsely depress this assay. Thin prep Papanicolaou smear with manual screeningon 02-18-2022 Thin prep Papanicolaou smear with manual screening 5 5-15 [facility] Work Phone: Absolute lymphocyte counton 01-28-2022 Lymphocytes Auto (Unsp spec) [#/Vol] 1.90 10*3/uL 0.83-4.51 [facility] Work Phone: Basophil percentageon 2021 Basophil percentage 0 SEEN /hpf 0-5 [facility] Work Phone: Basophil percentage 2.7 mg/dL 2.5-4.9 [facility] Work Phone: Basophils/100 WBC (Bld) 0.5 % 0-1 [facility] Work Phone: Chloride [Moles/Vol] 110 mmol/L 98-107 [facility]: Eosinophils/100 WBC (Bld) 0.4 % 0-5 [facility] Work Phone: Glucose [Mass/Vol] 129 mg/dL 74-106 [facility] Work Phone: Comment on above: Fasting Glucose resu lt greater than or equal to 126 mg/dL suggests DIABETES MELLITUS per A.D.A. criteria. Neutrophils (Bld) [#/Vol] 8.0 10*3/uL 2.0-7.7 [facility] Work Phone: Neutrophils/100 WBC (Bld) 70.6 % 47-70 [facility] Work Phone: Potassium [Moles/Vol] 3.8 mmol/L 3.5-5.1 [facility] Work Phone: Sodium [Moles/Vol] 141 mmol/L 136-145 [facility] Work Phone: WBC (Bld) [#/Vol] 11.3 10*3/uL 4.4-11.0 [facility] Work Phone: Bilirubin Test strip Ql (U)o n 01-28-2022 Bilirubin Ql (U) Negative Negative [facility] Work Phone: Blood erythrocytes count (nu mber/volume)on 01-28-2022 RBC (Bld) [#/Vol] 4.23 10*6/uL 4.6-6.2 [facility] Work Phone: Blood hemoglobin measurement (mass/volume)on 01-28-2022 Hemoglobin (Bld) [Mass/Vol] 12.6 g/dL 13.0-16.5 [facility] Work Phone: Blood lymphocytes/100 leukoc yteson 01-28-2022 Lymphocytes/100 WBC (Bld) 16.8 % 19-41 [facility] Work Phone: Blood monocytes/100 leukocyt eson 01-28-2022 Monocytes/100 WBC (Bld) 10.0 % 0-10 [facility] Work Phone: Blood platelet mean volumeon 01-28-2022 Platelet mean volume (Bld) [Entitic vol] 9.3 fL 6.2-12.0 [facility] Work Phone: Determination of erythrocyte mean corpuscular volume (MCV)on 01-28-2022 MCV (RBC) [Entitic vol] 91.3 fL 80-94 [facility] Work Phone: Hematocrit Auto (Bld) [Volum e fraction]on 01-28-2022 Hematocrit (Bld) [Volume fraction] 38.6 % 40-54 [facility] Work Phone: Ketones Test strip Ql (U)on 01-28-2022 Ketones Ql (U) Negative Negative [facility] Work Phone: Laboratory - Chemistry and C hemistry - challengeon 01-28-2022 CO2 [Moles/Vol] 25.0 mmol/L 21.0-32.0 [facility] Work Phone: Urea nitrogen/Creatinine [Mass ratio] 14.7 mg/mg 10-20 [facility] Work Phone: Laboratory - Hematology and Cell countson 01-28-2022 Erythrocyte distribution width (RBC) [Entitic vol] 45.7 fL 35.1-43.9 [facility] Work Phone: Erythrocyte distribution width (RBC) [Ratio] 13.7 % 11.6-14.6 [facility] Work Phone: Immature granulocytes/100 WBC (Bld) 1.700 % 0.0-0.9 [facility] Work Phone: Comment on above: IG% - Immature Granu locytes (promyelocytes, myelocytes and metamyelocytes) > 1% indicates that a LEFT SHIFT is Present. MCH (RBC) [Entitic mass] 29.8 pg 27.0-32.0 [facility] Work Phone: Nucleated RBC/100 WBC (Bld) [Ratio] 0 % 0-5 [facility] Work Phone: MCHC Auto (RBC) [Mass/Vol]on 01-28-2022 MCHC (RBC) [Mass/Vol] 32.6 g/dL 32-36 [facility] Work Phone: Mucus LM Ql (Urine sed)on Mucus Ql (Urine sed) 0 SEEN /hpf [facility] Work Phone: Nitrite Test strip Ql (U)on 01-28-2022 Nitrite Ql (U) Negative Negative [facility] Work Phone: No Panel Informationon 01-28 Urine Microalbumin/Creatinine Ratio 77.0 mg/g CRE <30 [facility] Work Phone: Estimated GFR (MDRD) Amer 56 mL/min >60 [facility] Work Phone: Comment on above: GFR Calc Estimated GFR (MDRD) Non-Af Amer 46 mL/min >60 [facility] Work Phone: Comment on above: Non- GFR Calc Platelets bldon 01-28-2022 Platelets (Bld) [#/Vol] 240 10*3/uL 150-450 [facility] Work Phone: Protein Test strip Ql (U)on 01-28-2022 Protein Ql (U) Negative Negative [facility] Work Phone: Serum or plasma albumin you urement (mass/volume)on 01-28-2022 Albumin [Mass/Vol] 3.2 g/dL 3.2-5.0 [facility] Work Phone: Serum or plasma calcium you urement (mass/volume)on 01-28-2022 Calcium [Mass/Vol] 8.4 mg/dL 8.5-10.1 [facility] Work Phone: Serum or plasma creatinine m easurement (mass/volume)on 01-28-2022 Creatinine [Mass/Vol] 1.63 mg/dL 0.70-1.30 [facility] Work Phone: Comment on above: The validity of the calculated GFR & GFRAA in patients over 70 years has not been determined. Clinical correlation is essential. Serum or plasma urea nitroge n measurement (mass/volume)on 01-28-2022 Urea nitrogen [Mass/Vol] 24 mg/dL 7-18 [facility] Work Phone: Squamous epithelial cells de tection in urine sediment by light microscopyon 01-28-2022 Epithelial cells.squamous LM Ql (Urine sed) 0-5 SEEN /hpf 0-5 [facility] Work Phone: Thin prep Papanicolaou smear with manual screeningon 01-28-2022 Thin prep Papanicolaou smear with manual screening 28.5 mg/L NO RANGE EST. [facility] Work Phone: Urine blood detectionon 01-12 RBC Ql (U) Negative Negative [facility] Work Phone: RBC Ql (U) 0 SEEN /hpf 0-5 [facility] Work Phone: Urine clarityon 01-28-2022 Clarity (U) Sl. Cloudy Clear [facility] Work Phone: Urine color determinationon 01-28-2022 Color (U) Yellow Yellow [facility] Work Phone: Urine creatinine measurement (mass/volume)on 01-28-2022 Creatinine (U) [Mass/Vol] 37.00 mg/dL NO RANGE EST. [facility] Work Phone: Urine glucose detectionon Glucose Ql (U) Normal mg/dl Normal [facility] Work Phone: Urine leukocyte esterase det ection by dipstickon 01-28-2022 Leukocyte esterase Test strip Ql (U) Negative Negative [facility] Work Phone: Urine pHon 01-28-2022 pH (U) 7.0 [pH] 5.0 - 8.0 [facility] Work Phone: Urine sediment bacteria coun t by microscopy (number/high power field)on 01-28-2022 Bacteria LM.HPF (Urine sed) [#/Area] 0 /[HPF] None Seen [facility] Work Phone: Urine specific gravity measu rementon 01-28-2022 Specific gravity (U) [Rel density] 1.010 1.002-1.030 [facility] Work Phone: Urobilinogen Auto test strip Ql (U)on 01-28-2022 Urobilinogen Ql (U) Normal mg/dl Normal [facility] Work Phone: No Panel Informationon 01-25 [place] Level 0.50 mmol/L 0.60-1.20 [facility] Work Phone: Basophil percentageon 2021 Cholesterol [Mass/Vol] 140 mg/dL <200 [facility] Work Phone: Comment on above: <200 mg/dL Desirable 200-240 mg/dL Borderline >240 mg/dL High Risk Triglyceride [Mass/Vol] 247 mg/dL <199 [facility] Work Phone: Comment on above: The drugs N-Acetylcy steine and Metamizole may falsely depress this assay.Serum Triglycerides Reference Interval Normal <150 mg/dL Borderline high 150 - 199 mg/dL High 200 - 499 mg/dL Very High > or = 500 mg/dL No Panel Informationon 01-04 [place] Level 0.50 mmol/L 0.60-1.20 [facility] Work Phone: Serum or plasma cholesterol in HDL measurement (mass/volume)on 01-04-2022 Cholesterol in HDL [Mass/Vol] 34 mg/dL >40 [facility] Work Phone: Comment on above: The drugs N-Acetylcy steine and Metamizole may falsely depress this assay. Reference Range HDL <40 mg/dL Low HDL Cholesterol HDL >or= 60 mg/dL High HDL Cholesterol Serum or plasma cholesterol in VLDL measurement (mass/volume)on 01-04-2022 Cholesterol in VLDL [Mass/Vol] 49 mg/dL 5-40 [facility] Work Phone: Serum or plasma low density lipoprotein (LDL) cholesterol measurement (mass/volume)on 01-04-2022 Cholesterol in LDL [Mass/Vol] 57 mg/dL 0-130 [facility] Work Phone: No Panel Informationon 12-07 [place] Level 0.50 mmol/L 0.60-1.20 [facility] Work Phone: Absolute lymphocyte counton 12-03-2021 Lymphocytes Auto (Unsp spec) [#/Vol] 2.02 10*3/uL 0.83-4.51 [facility] Work Phone: Basophil percentageon 2021 Basophils/100 WBC (Bld) 1.1 % 0-1 [facility] Work Phone: Chloride [Moles/Vol] 108 mmol/L 98-107 [facility] Work Phone: Eosinophils/100 WBC (Bld) 2.9 % 0-5 [facility] Work Phone: Glucose [Mass/Vol] 118 mg/dL 74-106 [facility] Work Phone: Comment on above: Fasting Glucose resu lt from 100 to 125 mg/dL suggests IMPAIRED HOMEOSTASIS per A.D.A. criteria. Neutrophils (Bld) [#/Vol] 4.3 10*3/uL 2.0-7.7 [facility] Work Phone: Neutrophils/100 WBC (Bld) 57.2 % 47-70 [facility] Work Phone: Potassium [Moles/Vol] 3.9 mmol/L 3.5-5.1 [facility] Work Phone: Sodium [Moles/Vol] 140 mmol/L 136-145 [facility] Work Phone: [phone] WBC (Bld) [#/Vol] 7.5 10*3/uL 4.4-11.0 [facility] Work Phone: Bilirubin Test strip Ql (U)o n 12-03-2021 Bilirubin Ql (U) Negative Negative [facility] Work Phone: Blood erythrocytes count (nu mber/volume)on 12-03-2021 RBC (Bld) [#/Vol] 4.70 10*6/uL 4.6-6.2 [facility] Work Phone: Blood hemoglobin measurement (mass/volume)on 12-03-2021 Hemoglobin (Bld) [Mass/Vol] 13.7 g/dL 13.0-16.5 [facility] Work Phone: Blood lymphocytes/100 leukoc yteson 12-03-2021 Lymphocytes/100 WBC (Bld) 27.1 % 19-41 [facility] Work Phone: Blood monocytes/100 leukocyt eson 12-03-2021 Monocytes/100 WBC (Bld) 11.0 % 0-10 [facility] Work Phone: Blood platelet mean volumeon 12-03-2021 Platelet mean volume (Bld) [Entitic vol] 9.1 fL 6.2-12.0 [facility] Work Phone: Culture, urineon 12-03-2021 Bacteria identified Cx Nom (U) Culture exhibits no growth. [facility] Work Phone: Determination of erythrocyte mean corpuscular volume (MCV)on 12-03-2021 MCV (RBC) [Entitic vol] 88.9 fL 80-94 [facility] Work Phone: Hematocrit Auto (Bld) [Volum e fraction]on 12-03-2021 Hematocrit (Bld) [Volume fraction] 41.8 % 40-54 [facility] Work Phone: Ketones Test strip Ql (U)on 12-03-2021 Ketones Ql (U) Negative Negative [facility] Work Phone: Laboratory - Chemistry and C hemistry - challengeon 12-03-2021 CO2 [Moles/Vol] 27.0 mmol/L 21.0-32.0 [facility] Work Phone: Urea nitrogen/Creatinine [Mass ratio] 9.7 mg/mg 10-20 [facility] Work Phone: Laboratory - Hematology and Cell countson 12-03-2021 Erythrocyte distribution width (RBC) [Entitic vol] 43.4 fL 35.1-43.9 [facility] Work Phone: Erythrocyte distribution width (RBC) [Ratio] 13.2 % 11.6-14.6 [facility] Work Phone: Immature granulocytes/100 WBC (Bld) 0.700 % 0.0-0.9 [facility] Work Phone: Comment on above: IG% - Immature Granu locytes (promyelocytes, myelocytes and metamyelocytes) > 1% indicates that a LEFT SHIFT is Present. MCH (RBC) [Entitic mass] 29.1 pg 27.0-32.0 [facility] Work Phone: Nucleated RBC/100 WBC (Bld) [Ratio] 0 % 0-5 [facility] Work Phone: MCHC Auto (RBC) [Mass/Vol]on 12-03-2021 MCHC (RBC) [Mass/Vol] 32.8 g/dL 32-36 [facility] Work Phone: Nitrite Test strip Ql (U)on 12-03-2021 Nitrite Ql (U) Negative Negative [facility] Work Phone: No Panel Informationon 12-03 Estimated GFR (MDRD) Amer 43 mL/min >60 [facility] Work Phone: Comment on above: GFR Calc Estimated GFR (MDRD) Non-Af Amer 35 mL/min >60 [facility] Work Phone: Comment on above: Non- GFR Calc [place] Level 0.50 mmol/L 0.60-1.20 [facility] Work Phone: Platelets bldon 12-03-2021 Platelets (Bld) [#/Vol] 230 10*3/uL 150-450 [facility] Work Phone: Protein Test strip Ql (U)on 12-03-2021 Protein Ql (U) Negative Negative [facility] Work Phone: Serum or plasma calcium you urement (mass/volume)on 12-03-2021 Calcium [Mass/Vol] 8.9 mg/dL 8.5-10.1 [facility] Work Phone: Serum or plasma creatinine m easurement (mass/volume)on 12-03-2021 Creatinine [Mass/Vol] 2.07 mg/dL 0.70-1.30 [facility] Work Phone: Comment on above: The validity of the calculated GFR & GFRAA in patients over 70 years has not been determined. Clinical correlation is essential. Serum or plasma urea nitroge n measurement (mass/volume)on 12-03-2021 Urea nitrogen [Mass/Vol] 20 mg/dL 7-18 [facility] Work Phone: Thin prep Papanicolaou smear with manual screeningon 12-03-2021 Thin prep Papanicolaou smear with manual screening 5 5-15 [facility] Work Phone: Urine blood detectionon 11-15 RBC Ql (U) Negative Negative [facility] Work Phone: Urine clarityon 12-03-2021 Clarity (U) Clear Clear [facility] Work Phone: Urine color determinationon 12-03-2021 Color (U) Yellow Yellow [facility] Work Phone: Urine glucose detectionon Glucose Ql (U) Normal mg/dl Normal [facility] Work Phone: Urine leukocyte esterase det ection by dipstickon 12-03-2021 Leukocyte esterase Test strip Ql (U) Negative Negative [facility] Work Phone: Urine pHon 12-03-2021 pH (U) 7.0 [pH] [facility] Work Phone: Urine specific gravity measu rementon 12-03-2021 Specific gravity (U) [Rel density] 1.010 [facility] Work Phone: Urobilinogen Auto test strip Ql (U)on 12-03-2021 Urobilinogen Ql (U) Normal mg/dl Normal [facility] Work Phone: No Panel Informationon 11-09 [place] Level 0.40 mmol/L 0.60-1.20 [facility] Work Phone: Absolute lymphocyte counton 11-05-2021 Lymphocytes Auto (Unsp spec) [#/Vol] 2.12 10*3/uL 0.83-4.51 [facility] Work Phone: Basophil percentageon 2020 Chloride [Moles/Vol] 110 mmol/L 98-107 [facility] Work Phone: Eosinophils/100 WBC (Bld) 2.8 % 0-5 [facility] Work Phone: Glucose [Mass/Vol] 132 mg/dL 74-106 [facility] Work Phone: Comment on above: Fasting Glucose resu lt greater than or equal to 126 mg/dL suggests DIABETES MELLITUS per A.D.A. criteria.Please note revised GLUCOSE reference range effective 2017. Neutrophils (Bld) [#/Vol] 5.7 10*3/uL 2.0-7.7 [facility] Work Phone: Potassium [Moles/Vol] 4.0 mmol/L 3.5-5.1 [facility] Work Phone: Sodium [Moles/Vol] 143 mmol/L 136-145 [facility] Work Phone: WBC (Bld) [#/Vol] 9.3 10*3/uL 4.4-11.0 [facility] Work Phone: Basophil percentage 10-25 SEEN /hpf [facility] Work Phone: Bilirubin Test strip Ql (U)o n 11-05-2021 Bilirubin Ql (U) Negative Negative [facility] Work Phone: Blood erythrocytes count (nu mber/volume)on 11-05-2021 RBC (Bld) [#/Vol] 4.57 10*6/uL 4.6-6.2 [facility] Work Phone: Blood hemoglobin measurement (mass/volume)on 11-05-2021 Hemoglobin (Bld) [Mass/Vol] 13.4 g/dL 13.0-16.5 [facility] Work Phone: Blood lymphocytes/100 leukoc yteson 11-05-2021 Lymphocytes/100 WBC (Bld) 22.9 % 19-41 [facility] Work Phone: Blood monocytes/100 leukocyt eson 11-05-2021 Monocytes/100 WBC (Bld) 10.9 % 0-10 [facility] Work Phone: Blood platelet mean volumeon 11-05-2021 Platelet mean volume (Bld) [Entitic vol] 9.1 fL 6.2-12.0 [facility] Work Phone: Culture, urineon 11-05-2021 Bacteria identified Cx Nom (U) Streptococcus mitis/ oralis [facility] Work Phone: Determination of erythrocyte mean corpuscular volume (MCV)on 11-05-2021 MCV (RBC) [Entitic vol] 89.5 fL 80-94 [facility] Work Phone: Hematocrit Auto (Bld) [Volum e fraction]on 11-05-2021 Hematocrit (Bld) [Volume fraction] 40.9 % 40-54 [facility] Work Phone: Ketones Test strip Ql (U)on 11-05-2021 Ketones Ql (U) Negative Negative [facility] Work Phone: Laboratory - Chemistry and C hemistry - challengeon 11-05-2021 CO2 [Moles/Vol] 28.0 mmol/L 21.0-32.0 [facility] Work Phone: Urea nitrogen/Creatinine [Mass ratio] 11.6 mg/mg 10-20 [facility] Work Phone: Laboratory - Hematology and Cell countson 11-05-2021 Basophils/100 WBC (Unsp spec) 0.9 % 0-1 [facility] Work Phone: Erythrocyte distribution width (RBC) [Entitic vol] 43.5 fL 35.1-43.9 [facility] Work Phone: Erythrocyte distribution width (RBC) [Ratio] 13.3 % 11.6-14.6 [facility] Work Phone: Immature granulocytes/100 WBC (Bld) 0.600 % 0.0-0.9 [facility] Work Phone: Comment on above: IG% - Immature Granu locytes (promyelocytes, myelocytes and metamyelocytes) > 1% indicates that a LEFT SHIFT is Present. MCH (RBC) [Entitic mass] 29.3 pg 27.0-32.0 [facility] Work Phone: Neutrophils/100 WBC (Bld) 61.9 % 47-70 [facility] Work Phone: Nucleated RBC/100 WBC (Bld) [Ratio] 0 % 0-5 [facility] Work Phone: MCHC Auto (RBC) [Mass/Vol]on 11-05-2021 MCHC (RBC) [Mass/Vol] 32.8 g/dL 32-36 [facility] Work Phone: Mucus LM Ql (Urine sed)on Mucus Ql (Urine sed) 0 SEEN /hpf [facility] Work Phone: Nitrite Test strip Ql (U)on 11-05-2021 Nitrite Ql (U) Negative Negative [facility] Work Phone: No Panel Informationon 11-05 Estimated GFR (MDRD) Amer 47 mL/min >60 [facility] Work Phone: Comment on above: GFR Calc Estimated GFR (MDRD) Non-Af Amer 39 mL/min >60 [facility] Work Phone: Comment on above: Non- GFR Calc Platelets bldon 11-05-2021 Platelets (Bld) [#/Vol] 218 10*3/uL 150-450 [facility] Work Phone: Protein Test strip Ql (U)on 11-05-2021 Protein Ql (U) 15 mg/dl Negative [facility] Work Phone: Serum or plasma albumin you urement (mass/volume)on 11-05-2021 Albumin [Mass/Vol] 2.7 g/dL 3.2-5.0 [facility] Work Phone: Serum or plasma calcium you urement (mass/volume)on 11-05-2021 Calcium [Mass/Vol] 8.7 mg/dL 8.5-10.1 [facility] Work Phone: Serum or plasma creatinine m easurement (mass/volume)on 11-05-2021 Creatinine [Mass/Vol] 1.90 mg/dL 0.70-1.30 [facility] Work Phone: Comment on above: The validity of the calculated GFR & GFRAA in patients over 70 years has not been determined. Clinical correlation is essential. Serum or plasma urea nitroge n measurement (mass/volume)on 11-05-2021 Urea nitrogen [Mass/Vol] 22 mg/dL 7-18 [facility] Work Phone: Squamous epithelial cells de tection in urine sediment by light microscopyon 11-05-2021 Epithelial cells.squamous LM Ql (Urine sed) 0-5 SEEN /hpf [facility] Work Phone: Thin prep Papanicolaou smear with manual screeningon 11-05-2021 Thin prep Papanicolaou smear with manual screening 5 5-15 [facility] Work Phone: Urine blood detectionon 10-15 RBC Ql (U) Negative Negative [facility] Work Phone: RBC Ql (U) 0 SEEN /hpf [facility] Work Phone: Urine clarityon 11-05-2021 Clarity (U) Sl. Cloudy Clear [facility] Work Phone: Urine color determinationon 11-05-2021 Color (U) Yellow Yellow [facility] Work Phone: Urine creatinine measurement (mass/volume)on 11-05-2021 Creatinine (U) [Mass/Vol] 169.00 mg/dL NO RANGE EST. [facility] Work Phone: Urine glucose detectionon Glucose Ql (U) Normal mg/dl Normal [facility] Work Phone: Urine leukocyte esterase det ection by dipstickon 11-05-2021 Leukocyte esterase Test strip Ql (U) 100 /ul Negative [facility] Work Phone: Urine pHon 11-05-2021 pH (U) 6.0 [pH] [facility] Work Phone: Urine protein measurement (m ass/volume)on 11-05-2021 Protein (U) [Mass/Vol] 21.0 mg/dL 0.0-11.8 [facility] Work Phone: Urine protein/creatinine mas s ratioon 11-05-2021 Protein/Creatinine (U) [Mass ratio] 124 mg/g CRE 0-200 [facility] Work Phone: Urine sediment bacteria coun t by microscopy (number/high power field)on 11-05-2021 Bacteria LM.HPF (Urine sed) [#/Area] 0 /[HPF] None Seen [facility] Work Phone: Urine specific gravity measu rementon 11-05-2021 Specific gravity (U) [Rel density] 1.020 [facility] Work Phone: Urobilinogen Auto test strip Ql (U)on 11-05-2021 Urobilinogen Ql (U) Normal mg/dl Normal [facility] Work Phone: CBC Auto Differentialon 10-15 Erythrocyte distribution width (RBC) [Ratio] 14.5 % 11.5 - 14.5 % [place] Hematocrit (Bld) [Volume fraction] 42.1 % 40 - 52 % [place] Hemoglobin (Bld) [Mass/Vol] 13.8 g/dL 13 - 18 g/dL [place] Interpretation and review of laboratory results Abnormal [place] MCH (RBC) [Entitic mass] 28.8 pg 26 - 34 pg [place] MCHC (RBC) [Mass/Vol] 32.7 % 32 - 36 % [place] MCV (RBC) [Entitic vol] 88.1 fL 80 - 98 fL [place] Platelet mean volume (Bld) [Entitic vol] 7.9 fL 7.4 - 10.4 fL [place] Platelets (Bld) [#/Vol] 356 10*3/uL 140 - 440 10*3/uL [place] RBC (Bld) [#/Vol] 4.78 10*6/uL 4.4 - 5.9 10*6/uL [place] WBC (Bld) [#/Vol] 16.4 10*3/uL High 3.6 - 10.7 10*3/uL [place] Test Performed by [facility], [address] [place], [place] [address] [place] Comp Panel with Mg Reflexon 11-04-2020 Calcium [Mass/Vol] 8.9 mg/dL Normal 8.4-10.4 [facility] Comment on above: Performed By: #### H EMOG, CMP3M, CRP2, LDH3, FIBGN, DDI2, APTT, FERR3 #### [facility] [address] [place] [address] ALP [Catalytic activity/Vol] 83 U/L Normal 38-126 [facility] Comment on above: Performed By: #### H EMOG, CMP3M, CRP2, LDH3, FIBGN, DDI2, APTT, FERR3 #### [facility] [address] [place] [address] ALT [Catalytic activity/Vol] 133 U/L High 0-49 [facility] Comment on above: Result Comment: The ALT test is performed by an updated assay method. Please note that the reference intervals have been changed and are now sex specific. Performed By: #### H EMOG, CMP3M, CRP2, LDH3, FIBGN, DDI2, APTT, FERR3 #### [facility] [address] [place] [address] Anion gap [Moles/Vol] 9 Normal [facility] Comment on above: Performed By: #### H EMOG, CMP3M, CRP2, LDH3, FIBGN, DDI2, APTT, FERR3 #### [facility] [address] [place] [address] AST [Catalytic activity/Vol] 39 U/L Normal 15-46 [facility] Comment on above: Performed By: #### H EMOG, CMP3M, CRP2, LDH3, FIBGN, DDI2, APTT, FERR3 #### [facility] [address] [place] [address] Bilirubin [Mass/Vol] 0.6 mg/dL Normal 0.2-1.3 [facility] Comment on above: Performed By: #### H EMOG, CMP3M, CRP2, LDH3, FIBGN, DDI2, APTT, FERR3 #### [facility] [address] [place] [address] CO2 [Moles/Vol] 20 mmol/L Low 22-30 [facility] Comment on above: Performed By: #### H EMOG, CMP3M, CRP2, LDH3, FIBGN, DDI2, APTT, FERR3 #### [facility] [address] [place] [address] Glucose [Mass/Vol] 140 mg/dL High 70-100 [facility] Comment on above: Performed By: #### H EMOG, CMP3M, CRP2, LDH3, FIBGN, DDI2, APTT, FERR3 #### [facility] [address] [place] [address] Protein [Mass/Vol] 6.1 g/dL Low 6.3-8.2 [facility] Comment on above: Performed By: #### H EMOG, CMP3M, CRP2, LDH3, FIBGN, DDI2, APTT, FERR3 #### [facility] [address] [place] [address] Urea nitrogen [Mass/Vol] 41 mg/dL High 7-20 [facility] Comment on above: Performed By: #### H EMOG, CMP3M, CRP2, LDH3, FIBGN, DDI2, APTT, FERR3 #### [facility] [address] [place] [address] Creatinine [Mass/Vol] 1.84 mg/dL High 0.52-1.25 [facility] Comment on above: Performed By: #### H EMOG, CMP3M, CRP2, LDH3, FIBGN, DDI2, APTT, FERR3 #### [facility] [address] [place] [address] GFR/1.73 sq M predicted among blacks MDRD (S/P/Bld) [Vol rate/Area] 46.0 mL/min/{1.73_m2} Abnormal >60 [facility] Comment on above: Performed By: #### H EMOG, CMP3M, CRP2, LDH3, FIBGN, DDI2, APTT, FERR3 #### [facility] [address] [place] [address] GFR/1.73 sq M predicted among non-blacks MDRD (S/P/Bld) [Vol rate/Area] 39.7 mL/min/{1.73_m2} Abnormal >60 [facility] Comment on above: Result Comment: KDIG [...] CRP2, LDH3, FIBGN, DDI2, APTT, FERR3 #### [facility] [address] [place] [address] Albumin [Mass/Vol] 3.4 g/dL Low 3.5-5.0 [facility] Comment on above: Performed By: #### H EMOG, CMP3M, CRP2, LDH3, FIBGN, DDI2, APTT, FERR3 #### [facility] [address] [place] [address] Chloride [Moles/Vol] 106 mmol/L Normal 98-107 [facility] Comment on above: Performed By: #### H EMOG, CMP3M, CRP2, LDH3, FIBGN, DDI2, APTT, FERR3 #### [facility] [address] [place] [address] Potassium [Moles/Vol] 4.3 mmol/L Normal 3.5-5.1 [facility] Comment on above: Performed By: #### H EMOG, CMP3M, CRP2, LDH3, FIBGN, DDI2, APTT, FERR3 #### [facility] [address] [place] [address] Sodium [Moles/Vol] 134 mmol/L Low 135-145 [facility] Comment on above: Performed By: #### H EMOG, CMP3M, CRP2, LDH3, FIBGN, DDI2, APTT, FERR3 #### [facility] [address] [place] [address] Comprehensive Metabolic Pane l w/ Reflex to MGon 11-04-2020 Albumin [Mass/Vol] 3.4 g/dL Low 3.5 - 5 g/dL [place] ALP [Catalytic activity/Vol] 83 U/L 38 - 126 U/L [place] ALT [Catalytic activity/Vol] 133 U/L High 0 - 49 U/L [place] Comment on above: The ALT test is perf ormed by an updated assay method. Please note that the reference intervals have been changed and are now sex specific. Anion gap [Moles/Vol] 9 mmol/L [place] AST [Catalytic activity/Vol] 39 U/L 15 - 46 U/L [place] Bilirubin Ql (U) 0.6 mg/dL 0.2 - 1.3 mg/dL [place] Calcium [Mass/Vol] 8.9 mg/dL 8.4 - 10. 4 mg/dL [place] Chloride [Moles/Vol] 106 mmol/L 98 - 10 7 mmol/L [place] CO2 [Moles/Vol] 20 mmol/L Low 22 - 30 mmol/L [place] Creatinine [Mass/Vol] 1.84 mg/dL High 0.52 - 1.25 mg/dL [place] EGFR IF NonAfrican [place] 39.7 mL/min Abnormal >60 [place] Comment on above: KDIGO guidelines pro [...] (S/P/Bld) [Vol rate/Area] 46.0 mL/min/{1.73_m2} Abnormal >60 [place] Glucose [Mass/Vol] 140 mg/dL High 70 - 100 mg/dL [place] Interpretation and review of laboratory results Abnormal [place] Potassium [Moles/Vol] 4.3 mmol/L 3.5 - 5.1 mmol/L [place] Protein [Mass/Vol] 6.1 g/dL Low 6.3 - 8.2 g/dL [place] Sodium [Moles/Vol] 134 mmol/L Low 135 - 145 mmol/L [place] Urea nitrogen [Mass/Vol] 41 mg/dL High 7 - 20 mg/dL [place] Test Performed by [facility], [address] [place] [address] [place] Hemogram w/ Autodiffon 11-04 Erythrocyte distribution width (RBC) [Ratio] 14.5 % Normal 11.5-14.5 [facility] Comment on above: Performed By: #### H EMOG, CMP3M, CRP2, LDH3, FIBGN, DDI2, APTT, FERR3 #### [facility] [address] [place] [address] Hematocrit (Bld) [Volume fraction] 42.1 % Normal 40.0-52.0 [facility] Comment on above: Performed By: #### H EMOG, CMP3M, CRP2, LDH3, FIBGN, DDI2, APTT, FERR3 #### [facility] [address] [place] [address] Hemoglobin (Bld) [Mass/Vol] 13.8 g/dL Normal 13.0-18.0 [facility] Comment on above: Performed By: #### H EMOG, CMP3M, CRP2, LDH3, FIBGN, DDI2, APTT, FERR3 #### [facility] [address] [place] [address] MCH (RBC) [Entitic mass] 28.8 pg Normal 26.0-34.0 [facility] Comment on above: Performed By: #### H EMOG, CMP3M, CRP2, LDH3, FIBGN, DDI2, APTT, FERR3 #### [facility] [address] [place] [address] MCHC (RBC) [Mass/Vol] 32.7 % Normal 32.0-36.0 [facility] Comment on above: Performed By: #### H EMOG, CMP3M, CRP2, LDH3, FIBGN, DDI2, APTT, FERR3 #### [facility] [address] [place] [address] MCV (RBC) [Entitic vol] 88.1 fL Normal 80.0-98.0 [facility] Comment on above: Performed By: #### H EMOG, CMP3M, CRP2, LDH3, FIBGN, DDI2, APTT, FERR3 #### [facility] [address] [place] [address] Platelet mean volume (Bld) [Entitic vol] 7.9 fL Normal 7.4-10.4 [facility] Comment on above: Performed By: #### H EMOG, CMP3M, CRP2, LDH3, FIBGN, DDI2, APTT, FERR3 #### [facility] [address] [place] [address] Platelets (Bld) [#/Vol] 356 10*3/uL Normal 140-440 [facility] Comment on above: Performed By: #### H EMOG, CMP3M, CRP2, LDH3, FIBGN, DDI2, APTT, FERR3 #### [facility] [address] [place] [address] RBC (Bld) [#/Vol] 4.78 10*6/uL Normal 4.40-5.90 [facility] Comment on above: Performed By: #### H EMOG, CMP3M, CRP2, LDH3, FIBGN, DDI2, APTT, FERR3 #### [facility] [address] [place] [address] WBC (Bld) [#/Vol] 16.4 10*3/uL High 3.6-10.7 [facility] Comment on above: Performed By: #### H EMOG, CMP3M, CRP2, LDH3, FIBGN, DDI2, APTT, FERR3 #### [facility] [address] [place] [address] Manual Diffon 11-04-2020 Abs Baso Cnt 0.0 10*3/uL Normal 0.0-0.2 [facility] Comment on above: Performed By: #### H EMOG, CMP3M, CRP2, LDH3, FIBGN, DDI2, APTT, FERR3 #### [facility] [address] [place] [address] Abs Eosin Cnt 0.0 10*3/uL Normal 0.0-0.5 [facility] Comment on above: Performed By: #### H EMOG, CMP3M, CRP2, LDH3, FIBGN, DDI2, APTT, FERR3 #### [facility] [address] [place] [address] Abs Lymph Cnt 1.0 10*3/uL Low 1.1-4.5 [facility] Comment on above: Performed By: #### H EMOG, CMP3M, CRP2, LDH3, FIBGN, DDI2, APTT, FERR3 #### [facility] [address] [place] [address] Abs Monocyte Cnt 1.3 10*3/uL High 0.2-1.1 [facility] Comment on above: Performed By: #### H EMOG, CMP3M, CRP2, LDH3, FIBGN, DDI2, APTT, FERR3 #### [facility] [address] [place] [address] Abs Neutrophile Cnt 13.1 10*3/uL High 2.2-8.2 [facility] Comment on above: Performed By: #### H EMOG, CMP3M, CRP2, LDH3, FIBGN, DDI2, APTT, FERR3 #### [facility] [address] [place] [address] Anisocytosis Ql (Bld) Slight Normal [facility] Comment on above: Performed By: #### H EMOG, CMP3M, CRP2, LDH3, FIBGN, DDI2, APTT, FERR3 #### [facility] [address] [place] [address] Bands 2 % Normal 0-3 [facility] Comment on above: Performed By: #### H EMOG, CMP3M, CRP2, LDH3, FIBGN, DDI2, APTT, FERR3 #### [facility] [address] [place] [address] Basophils 0 % Normal 0-2 [facility] Comment on above: Performed By: #### H EMOG, CMP3M, CRP2, LDH3, FIBGN, DDI2, APTT, FERR3 #### [facility] [address] [place] [address] Danya Cells Slight Normal [facility] Comment on above: Performed By: #### H EMOG, CMP3M, CRP2, LDH3, FIBGN, DDI2, APTT, FERR3 #### [facility] [address] [place] [address] Cells counted 100 Normal [facility] Comment on above: Performed By: #### H EMOG, CMP3M, CRP2, LDH3, FIBGN, DDI2, APTT, FERR3 #### [facility] [address] [place] [address] Eosinophils 0 % Low 1-6 [facility] Comment on above: Performed By: #### H EMOG, CMP3M, CRP2, LDH3, FIBGN, DDI2, APTT, FERR3 #### [facility] [address] [place] [address] Lymphocytes 6 % Low 20-40 [facility] Comment on above: Performed By: #### H EMOG, CMP3M, CRP2, LDH3, FIBGN, DDI2, APTT, FERR3 #### [facility] [address] [place] [address] Metamyelocytes 5 % Abnormal <1 [facility] Comment on above: Performed By: #### H EMOG, CMP3M, CRP2, LDH3, FIBGN, DDI2, APTT, FERR3 #### [facility] [address] [place] [address] Monocytes 8 % Normal 2-10 [facility] Comment on above: Performed By: #### H EMOG, CMP3M, CRP2, LDH3, FIBGN, DDI2, APTT, FERR3 #### [facility] [address] [place] [address] Myelocytes 1 % Abnormal <1 [facility] Comment on above: Performed By: #### H EMOG, CMP3M, CRP2, LDH3, FIBGN, DDI2, APTT, FERR3 #### [facility] [address] [place] [address] Poikilocytosis Slight Normal [facility] Comment on above: Performed By: #### H EMOG, CMP3M, CRP2, LDH3, FIBGN, DDI2, APTT, FERR3 #### [facility] [address] [place] [address] RBC morphology finding Nom (Bld) ABNORMAL Normal [facility] Comment on above: Performed By: #### H EMOG, CMP3M, CRP2, LDH3, FIBGN, DDI2, APTT, FERR3 #### [facility] [facility] [address] [place] [address] Seg Neutrophils 78 % Normal 40-80 [facility] Comment on above: Performed By: #### H EMOG, CMP3M, CRP2, LDH3, FIBGN, DDI2, APTT, FERR3 #### [facility] [address] [place] [address] Manual Differentialon 2019 Absolute Baso # 0.0 10*3/uL 0 - 0.2 10*3/uL [place] Absolute Eos # 0.0 10*3/uL 0 - 0.5 10*3/uL [place] Absolute Lymph # 1.0 10*3/uL Low 1.1 - 4.5 10*3/uL [place] Absolute Towns # 1.3 10*3/uL High 0.2 - 1.1 10*3/uL [place] Absolute Neut # 13.1 10*3/uL High 2.2 - 8.2 10*3/uL [place] Anisocytosis Ql (Bld) Slight [facility], [place] Bands 2 % 0 - 3 % [place] Basophils 0 % 0 - 2 % [facility] Cells Slight [place] Eosinophils 0 % Low 1 - 6 % [place] Interpretation and review of laboratory results Abnormal [place] Lymphocytes 6 % Low 20 - 40 % [place] Metamyelocytes 5 % Abnormal <1 [place] Monocytes 8 % 2 - 10 % [place] Myelocytes 1 % Abnormal <1 [place] Poikilocytes Slight [place] RBC morphology finding Nom (Bld) ABNORMAL [place] Seg Neutrophils 78 % 40 - 80 % [place] TOTAL CELLS COUNTED 100 [place] Test Performed by [facility], [address], [place], [place] [address] [place] Add On Lab Teston 11-03-2020 Sodium [Moles/Vol] Accepted [place] Comment on above: Specimen available & acceptable for analysis. Test Performed by [facility], [address] [place] [address] [place] Add on test from HISon 11-03 Add on test from HIS Accepted Normal [facility] Comment on above: Result Comment: Spec imen available & acceptable for analysis. Performed By: #### H EMOG, CMP3M, CRP2, LDH3, FIBGN, DDI2, APTT, FERR3 #### [facility] [address] [place] [address] CBC Auto Differentialon 10-15 Erythrocyte distribution width (RBC) [Ratio] 14.3 % 11.5 - 14.5 % [place] Hematocrit (Bld) [Volume fraction] 39.0 % Low 40 - 52 % [place] Hemoglobin (Bld) [Mass/Vol] 12.8 g/dL Low 13 - 18 g/dL [place] Interpretation and review of laboratory results Abnormal [place] MCH (RBC) [Entitic mass] 28.7 pg 26 - 34 pg [place] MCHC (RBC) [Mass/Vol] 32.8 % 32 - 36 % [place] MCV (RBC) [Entitic vol] 87.6 fL 80 - 98 fL [place], [place] Platelet mean volume (Bld) [Entitic vol] 7.5 fL 7.4 - 10.4 fL [place] Platelets (Bld) [#/Vol] 332 10*3/uL 140 - 440 10*3/uL [place] RBC (Bld) [#/Vol] 4.45 10*6/uL 4.4 - 5.9 10*6/uL [place] WBC (Bld) [#/Vol] 15.6 10*3/uL High 3.6 - 10.7 10*3/uL [place] Test Performed by [facility], [address], [place], [place] [address] [place], [place] CR Chest PA/LATon 11-03-2020 CR Chest PA/LAT Patient Name: REGGIE LEÓN Diagnostic Radiology ACCESSION EXAM DATE/TIME PROCEDURE ORDERING PROVIDER [id number] 11/03/2020 10:20 EST CR Chest PA and LAT MD DIAZ IMOLA KINGA CPT code 99327 Reason For Exam (CR Chest PA and [...] Transcribed Date and Time: 11/03/2020 10:59 Normal [facility] Comp Panel with Mg Reflexon 11-03-2020 Calcium [Mass/Vol] 9.0 mg/dL Normal 8.4-10.4 [facility] Comment on above: Performed By: #### H EMOG, CMP3M, CRP2, LDH3, FIBGN, DDI2, APTT, FERR3 #### [facility] [address] [place] [address] Anion gap [Moles/Vol] 5 Normal [facility] Comment on above: Performed By: #### H EMOG, CMP3M, CRP2, LDH3, FIBGN, DDI2, APTT, FERR3 #### [facility] [address] [place] [address] Bilirubin [Mass/Vol] 0.7 mg/dL Normal 0.2-1.3 [facility] Comment on above: Performed By: #### H EMOG, CMP3M, CRP2, LDH3, FIBGN, DDI2, APTT, FERR3 #### [facility] [address] [place] [address] Creatinine [Mass/Vol] 2.08 mg/dL High 0.52-1.25 [facility] Comment on above: Performed By: #### H EMOG, CMP3M, CRP2, LDH3, FIBGN, DDI2, APTT, FERR3 #### [facility] [address] [place] [address] GFR/1.73 sq M predicted among blacks MDRD (S/P/Bld) [Vol rate/Area] 39.6 mL/min/{1.73_m2} Abnormal >60 [facility] Comment on above: Performed By: #### H EMOG, CMP3M, CRP2, LDH3, FIBGN, DDI2, APTT, FERR3 #### [facility] [address] [place] [address] GFR/1.73 sq M predicted among non-blacks MDRD (S/P/Bld) [Vol rate/Area] 34.2 mL/min/{1.73_m2} Abnormal >60 [facility] Comment on above: Result Comment: KDIG [...] CRP2, LDH3, FIBGN, DDI2, APTT, FERR3 #### [facility] [address] [place] [address] Albumin [Mass/Vol] 3.4 g/dL Low 3.5-5.0 [facility] Comment on above: Performed By: #### H EMOG, CMP3M, CRP2, LDH3, FIBGN, DDI2, APTT, FERR3 #### [facility] [address] [place] [address] Chloride [Moles/Vol] 107 mmol/L Normal 98-107 [facility] Comment on above: Performed By: #### H EMOG, CMP3M, CRP2, LDH3, FIBGN, DDI2, APTT, FERR3 #### [facility] [address] [place] [address] Potassium [Moles/Vol] 3.8 mmol/L Normal 3.5-5.1 [facility] Comment on above: Performed By: #### H EMOG, CMP3M, CRP2, LDH3, FIBGN, DDI2, APTT, FERR3 #### [facility] [address] [place] [address] Sodium [Moles/Vol] 134 mmol/L Low 135-145 [facility] Comment on above: Performed By: #### H EMOG, CMP3M, CRP2, LDH3, FIBGN, DDI2, APTT, FERR3 #### [facility] [address] [place] [address] ALP [Catalytic activity/Vol] 83 U/L Normal 38-126 [facility] [place] Comment on above: Performed By: #### H EMOG, CMP3M, CRP2, LDH3, FIBGN, DDI2, APTT, FERR3 #### [facility] [address] [place] [address] ALT [Catalytic activity/Vol] 175 U/L High 0-49 [place] Comment on above: Result Comment: The ALT test is performed by an updated assay method. Please note that the reference intervals have been changed and are now sex specific. Performed By: #### H EMOG, CMP3M, CRP2, LDH3, FIBGN, DDI2, APTT, FERR3 #### [facility] [address] [place] [address] The ALT test is perf ormed by an updated assay method. Please note that the reference intervals have been changed and are now sex specific. AST [Catalytic activity/Vol] 63 U/L High 15-46 [place] Comment on above: Performed By: #### H EMOG, CMP3M, CRP2, LDH3, FIBGN, DDI2, APTT, FERR3 #### [facility] [address] [place] [address] CO2 [Moles/Vol] 21 mmol/L Low 22-30 [place] Comment on above: Performed By: #### H EMOG, CMP3M, CRP2, LDH3, FIBGN, DDI2, APTT, FERR3 #### [facility] [address] [place] [address] Glucose [Mass/Vol] 139 mg/dL High 70-100 [place] Comment on above: Performed By: #### H EMOG, CMP3M, CRP2, LDH3, FIBGN, DDI2, APTT, FERR3 #### [facility] [address] [place] [address] Protein [Mass/Vol] 5.9 g/dL Low 6.3-8.2 [place] Comment on above: Performed By: #### H EMOG, CMP3M, CRP2, LDH3, FIBGN, DDI2, APTT, FERR3 #### [facility] [address] [place] [address] Urea nitrogen [Mass/Vol] 43 mg/dL High 7-20 [place] Comment on above: Performed By: #### H EMOG, CMP3M, CRP2, LDH3, FIBGN, DDI2, APTT, FERR3 #### [facility] [address] [place] [address] Comprehensive Metabolic Pane l w/ Reflex to MGon 11-03-2020 Albumin [Mass/Vol] 3.4 g/dL Low 3.5 - 5 g/dL [place] Anion gap [Moles/Vol] 5 mmol/L [place] Bilirubin Ql (U) 0.7 mg/dL 0.2 - 1.3 mg/dL [place] Calcium [Mass/Vol] 9.0 mg/dL 8.4 - 10. 4 mg/dL [place] Chloride [Moles/Vol] 107 mmol/L 98 - 10 7 mmol/L [place] Creatinine [Mass/Vol] 2.08 mg/dL High 0.52 - 1.25 mg/dL [place] EGFR IF NonAfrican Macedonian 34.2 mL/min Abnormal >60 [place] Comment on above: KDIGO guidelines pro [...] (S/P/Bld) [Vol rate/Area] 39.6 mL/min/{1.73_m2} Abnormal >60 [place] Interpretation and review of laboratory results Abnormal [place] Potassium [Moles/Vol] 3.8 mmol/L 3.5 - 5.1 mmol/L [place] Sodium [Moles/Vol] 134 mmol/L Low 135 - 145 mmol/L [place] Test Performed by [facility], [address] [place] [address] [place] Hemogram w/ Autodiffon 11-03 Erythrocyte distribution width (RBC) [Ratio] 14.3 % Normal 11.5-14.5 [facility] Comment on above: Performed By: #### H EMOG, CMP3M, CRP2, LDH3, FIBGN, DDI2, APTT, FERR3 #### [facility] [address] [place] [address] Hematocrit (Bld) [Volume fraction] 39.0 % Low 40.0-52.0 [facility] Comment on above: Performed By: #### H EMOG, CMP3M, CRP2, LDH3, FIBGN, DDI2, APTT, FERR3 #### [facility] [address] [place] [address] Hemoglobin (Bld) [Mass/Vol] 12.8 g/dL Low 13.0-18.0 [facility] Comment on above: Performed By: #### H EMOG, CMP3M, CRP2, LDH3, FIBGN, DDI2, APTT, FERR3 #### [facility] [address] [place] [address] MCH (RBC) [Entitic mass] 28.7 pg Normal 26.0-34.0 [facility] Comment on above: Performed By: #### H EMOG, CMP3M, CRP2, LDH3, FIBGN, DDI2, APTT, FERR3 #### [facility] [address] [place] [address] MCHC (RBC) [Mass/Vol] 32.8 % Normal 32.0-36.0 [facility] Comment on above: Performed By: #### H EMOG, CMP3M, CRP2, LDH3, FIBGN, DDI2, APTT, FERR3 #### [facility] [address] [place] [address] MCV (RBC) [Entitic vol] 87.6 fL Normal 80.0-98.0 [facility] Comment on above: Performed By: #### H EMOG, CMP3M, CRP2, LDH3, FIBGN, DDI2, APTT, FERR3 #### [facility] [address] [place] [address] Platelet mean volume (Bld) [Entitic vol] 7.5 fL Normal 7.4-10.4 [facility] Comment on above: Performed By: #### H EMOG, CMP3M, CRP2, LDH3, FIBGN, DDI2, APTT, FERR3 #### [facility] [address] [place] [address] Platelets (Bld) [#/Vol] 332 10*3/uL Normal 140-440 [facility] Comment on above: Performed By: #### H EMOG, CMP3M, CRP2, LDH3, FIBGN, DDI2, APTT, FERR3 #### [facility] [address] [place] [address] RBC (Bld) [#/Vol] 4.45 10*6/uL Normal 4.40-5.90 [facility] Comment on above: Performed By: #### H EMOG, CMP3M, CRP2, LDH3, FIBGN, DDI2, APTT, FERR3 #### [facility] [address] [place] [address] WBC (Bld) [#/Vol] 15.6 10*3/uL High 3.6-10.7 [facility] Comment on above: Performed By: #### H EMOG, CMP3M, CRP2, LDH3, FIBGN, DDI2, APTT, FERR3 #### [facility] [address] [place] [address] Manual Diffon 11-03-2020 Abs Lymph Cnt 2.0 10*3/uL Normal 1.1-4.5 [facility] Comment on above: Performed By: #### H EMOG, CMP3M, CRP2, LDH3, FIBGN, DDI2, APTT, FERR3 #### [facility] [address] [place] [address] Abs Monocyte Cnt 2.2 10*3/uL High 0.2-1.1 [facility] Comment on above: Performed By: #### H EMOG, CMP3M, CRP2, LDH3, FIBGN, DDI2, APTT, FERR3 #### [facility] [address] [place] [address] Abs Neutrophile Cnt 11.4 10*3/uL High 2.2-8.2 [facility] Comment on above: Performed By: #### H EMOG, CMP3M, CRP2, LDH3, FIBGN, DDI2, APTT, FERR3 #### [facility] [address] [place] [address] Anisocytosis Ql (Bld) Slight Normal [facility] Comment on above: Performed By: #### H EMOG, CMP3M, CRP2, LDH3, FIBGN, DDI2, APTT, FERR3 #### [facility] [address] [place] [address] Bands 4 % High 0-3 [facility] Comment on above: Performed By: #### H EMOG, CMP3M, CRP2, LDH3, FIBGN, DDI2, APTT, FERR3 #### [facility] [address] [place] [address] Dan[place] Cells Slight Normal [facility] Comment on above: Performed By: #### H EMOG, CMP3M, CRP2, LDH3, FIBGN, DDI2, APTT, FERR3 #### [facility] [address] [place] [address] Lymphocytes 13 % Low 20-40 [facility] Comment on above: Performed By: #### H EMOG, CMP3M, CRP2, LDH3, FIBGN, DDI2, APTT, FERR3 #### [facility] [address] [place] [address] Monocytes 14 % High 2-10 [facility] Comment on above: Performed By: #### H EMOG, CMP3M, CRP2, LDH3, FIBGN, DDI2, APTT, FERR3 #### [facility] [address] [place] [address] NRBC 1 /100{WBCs} High -1-0 [facility] Comment on above: Result Comment: [place] (<60 days) 1-10 Adult <1 Performed By: #### H EMOG, CMP3M, CRP2, LDH3, FIBGN, DDI2, APTT, FERR3 #### [facility] [address] [place] [address] RBC morphology finding Nom (Bld) ABNORMAL Normal [facility] Comment on above: Performed By: #### H EMOG, CMP3M, CRP2, LDH3, FIBGN, DDI2, APTT, FERR3 #### [facility] [address] [place] [address] Seg Neutrophils 69 % Normal 40-80 [facility] Comment on above: Performed By: #### H EMOG, CMP3M, CRP2, LDH3, FIBGN, DDI2, APTT, FERR3 #### [facility] [address] [place] [address] Tear Drop Forms Slight Normal [facility] Comment on above: Performed By: #### H EMOG, CMP3M, CRP2, LDH3, FIBGN, DDI2, APTT, FERR3 #### [facility] [address] [place] [address] Abs Baso Cnt 0.0 10*3/uL Normal 0.0-0.2 [facility] Comment on above: Performed By: #### H EMOG, CMP3M, CRP2, LDH3, FIBGN, DDI2, APTT, FERR3 #### [facility] [address] [place] [address] Abs Eosin Cnt 0.0 10*3/uL Normal 0.0-0.5 [facility] Comment on above: Performed By: #### H EMOG, CMP3M, CRP2, LDH3, FIBGN, DDI2, APTT, FERR3 #### [facility] [address] [place] [address] Basophils 0 % Normal 0-2 [facility] Comment on above: Performed By: #### H EMOG, CMP3M, CRP2, LDH3, FIBGN, DDI2, APTT, FERR3 #### [facility] [address] [place] [address] Cells counted 100 Normal [facility] Comment on above: Performed By: #### H EMOG, CMP3M, CRP2, LDH3, FIBGN, DDI2, APTT, FERR3 #### [facility] [address] [place] [address] Eosinophils 0 % Low 1-6 [facility] Comment on above: Performed By: #### H EMOG, CMP3M, CRP2, LDH3, FIBGN, DDI2, APTT, FERR3 #### [facility] [address] [place] [address] Manual Differentialon 2019 Absolute Baso # 0.0 10*3/uL 0 - 0.2 10*3/uL [facility] [place] Absolute Eos # 0.0 10*3/uL 0 - 0.5 10*3/uL [facility] Absolute Lymph # 2.0 10*3/uL 1.1 - 4.5 10*3/uL [facility] Absolute Towns # 2.2 10*3/uL High 0.2 - 1.1 10*3/uL [facility] Absolute Neut # 11.4 10*3/uL High 2.2 - 8.2 10*3/uL [facility] Anisocytosis Ql (Bld) Slight [facility] Bands 4 % High 0 - 3 % [facility] Basophils 0 % 0 - 2 % [facility] [place] D[place] Cells Slight [facility] Eosinophils 0 % Low 1 - 6 % [facility] Interpretation and review of laboratory results Abnormal [facility] [place] Lymphocytes 13 % Low 20 - 40 % [facility] [place] Monocytes 14 % High 2 - 10 % [facility] nRBC 1 /100{WBCs} High -1 - 0 /100{WBCs} [facility] [place] Comment on above: [place] (<60 days) 1 -10 Adult <1 RBC morphology finding Nom (Bld) ABNORMAL [facility] [place] Seg Neutrophils 69 % 40 - 80 % [facility] [place] Tear Drop Cells Slight [facility] [place] TOTAL CELLS COUNTED 100 [place] Test Performed by [facility], [address] [place], [place] [address] [place] Procalcitoninon 11-03-2020 Procalcitonin < 0.10 Normal <0.10 [facility] Comment on above: Performed By: #### H EMOG, CMP3M, CRP2, LDH3, FIBGN, DDI2, APTT, FERR3 #### [facility] [address] [place] [address] Procalcitonin <0.10 <0.10 ng/mL [place] Sodium [Moles/Vol] See Below [place], [place] Comment on above: PCT <0.50 = Low risk of severe sepsis and/or septic shock. PCT >2.00 = High risk of severe sepsis and/or septic shock. Test Performed by [facility], [address] [place] [id number] [place], [place] Interpretation See Below Normal [facility] Comment on above: Result Comment: PCT <0.50 = Low risk of severe sepsis and/or septic shock. PCT >2.00 = High risk of severe sepsis and/or septic shock. Performed By: #### H EMOG, CMP3M, CRP2, LDH3, FIBGN, DDI2, APTT, FERR3 #### [facility] [address] [place] [address] XR CHEST (2 VW)on 11-03-2020 Michel, [facility] Incoming Radiology Results From [facility] - 11/03/2020 10:59 AM EST Patient Name: REGGIE LEÓN Diagnostic Radiology ACCESSION EXAM DATE/TIME PROCEDURE ORDERING PROVIDER [id number] 11/03/2020 10:20 EST CR Chest PA & LAT MD EMILY, FARRUKH MCCORMICK CPT code 93466 Reason For Exam (CR Chest PA & [...] JEFFREY Transcribed Date and Time: 11/03/2020 10:59 [place] Patient Name: [id number] Diagnostic Radiology ACCESSION EXAM DATE/TIME PROCEDURE ORDERING PROVIDER [id number] 11/03/2020 10:20 EST CR Chest PA & LAT MD EMILY, FARRUKH MCCORMICK CPT code 49868 Reason For Exam (CR Chest PA & [...] JEFFREY Transcribed Date and Time: 11/03/2020 10:59 [place] APTTon 11-02-2020 aPTT Coag (Bld) [Time] 30.4 s Normal 20.0-30.5 [facility] Comment on above: Result Comment: NOTE : The therapeutic time for Heparin anticoagulation, based on Xa activity inhibition, is an APTT of 46-80 seconds. Performed By: #### H EMOG, CMP3M, CRP2, LDH3, FIBGN, DDI2, APTT, FERR3 #### [facility] [address] [place] [address] aPTT Coag (Bld) [Time] 30.4 s 20 - 30.5 s [place], [place] Comment on above: NOTE: The therapeuti c time for Heparin anticoagulation, based on Xa activity inhibition, is an APTT of 46-80 seconds. C-Reactive Proteinon 020 CRP [Mass/Vol] 10.2 mg/L High 0.0-6.0 [facility] Comment on above: Result Comment: . Performed By: #### H EMOG, CMP3M, CRP2, LDH3, FIBGN, DDI2, APTT, FERR3 #### [facility] [address] [place] [address] CRP [Mass/Vol] 10.2 mg/L High 0 - 6 mg/L [place] Comment on above: . CBCon 11-02-2020 Erythrocyte distribution width (RBC) [Ratio] 14.2 % 11.5 - 14.5 % [place] Hematocrit (Bld) [Volume fraction] 39.5 % Low 40 - 52 % [place] Hemoglobin (Bld) [Mass/Vol] 13.2 g/dL 13 - 18 g/dL [place] Interpretation and review of laboratory results Abnormal [place] MCH (RBC) [Entitic mass] 29.4 pg 26 - 34 pg [place] MCHC (RBC) [Mass/Vol] 33.5 % 32 - 36 % [place] MCV (RBC) [Entitic vol] 87.8 fL 80 - 98 fL [place] Platelet mean volume (Bld) [Entitic vol] 7.6 fL 7.4 - 10.4 fL [place] Platelets (Bld) [#/Vol] 340 10*3/uL 140 - 440 10*3/uL [place] RBC (Bld) [#/Vol] 4.49 10*6/uL 4.4 - 5.9 10*6/uL [place] WBC (Bld) [#/Vol] 13.0 10*3/uL High 3.6 - 10.7 10*3/uL [place] Test Performed by [facility], [address], [place], [place] [address] [place] Comp Panel with Mg Reflexon 11-02-2020 ALT [Catalytic activity/Vol] 198 U/L High 0-49 [facility] Comment on above: Result Comment: The ALT test is performed by an updated assay method. Please note that the reference intervals have been changed and are now sex specific. Performed By: #### H EMOG, CMP3M, CRP2, LDH3, FIBGN, DDI2, APTT, FERR3 #### [facility] [address] [place] [address] Calcium [Mass/Vol] 8.8 mg/dL Normal 8.4-10.4 [facility] Comment on above: Performed By: #### H EMOG, CMP3M, CRP2, LDH3, FIBGN, DDI2, APTT, FERR3 #### [facility] [address] [place] [address] Glucose [Mass/Vol] 135 mg/dL High 70-100 [facility] Comment on above: Performed By: #### H EMOG, CMP3M, CRP2, LDH3, FIBGN, DDI2, APTT, FERR3 #### [facility] [address] [place] [address] ALP [Catalytic activity/Vol] 85 U/L Normal 38-126 [facility] Comment on above: Performed By: #### H EMOG, CMP3M, CRP2, LDH3, FIBGN, DDI2, APTT, FERR3 #### [facility] [address] [place] [address] Anion gap [Moles/Vol] 9 Normal [facility] Comment on above: Performed By: #### H EMOG, CMP3M, CRP2, LDH3, FIBGN, DDI2, APTT, FERR3 #### [facility] [address] [place] [address] AST [Catalytic activity/Vol] 104 U/L High 15-46 [facility] Comment on above: Performed By: #### H EMOG, CMP3M, CRP2, LDH3, FIBGN, DDI2, APTT, FERR3 #### [facility] [address] [place] [address] Bilirubin [Mass/Vol] 0.7 mg/dL Normal 0.2-1.3 [facility] Comment on above: Performed By: #### H EMOG, CMP3M, CRP2, LDH3, FIBGN, DDI2, APTT, FERR3 #### [facility] [address] [place] [address] CO2 [Moles/Vol] 18 mmol/L Low 22-30 [facility] Comment on above: Performed By: #### H EMOG, CMP3M, CRP2, LDH3, FIBGN, DDI2, APTT, FERR3 #### [facility] [address] [place] [address] Creatinine [Mass/Vol] 1.89 mg/dL High 0.52-1.25 [facility] Comment on above: Performed By: #### H EMOG, CMP3M, CRP2, LDH3, FIBGN, DDI2, APTT, FERR3 #### [facility] [address] [place] [address] GFR/1.73 sq M predicted among blacks MDRD (S/P/Bld) [Vol rate/Area] 44.5 mL/min/{1.73_m2} Abnormal >60 [facility] Comment on above: Performed By: #### H EMOG, CMP3M, CRP2, LDH3, FIBGN, DDI2, APTT, FERR3 #### [facility] [address] [place] [address] GFR/1.73 sq M predicted among non-blacks MDRD (S/P/Bld) [Vol rate/Area] 38.4 mL/min/{1.73_m2} Abnormal >60 [facility] Comment on above: Result Comment: KDIG [...] CRP2, LDH3, FIBGN, DDI2, APTT, FERR3 #### [facility] [address] [place] [address] Protein [Mass/Vol] 6.1 g/dL Low 6.3-8.2 [facility] Comment on above: Performed By: #### H EMOG, CMP3M, CRP2, LDH3, FIBGN, DDI2, APTT, FERR3 #### [facility] [address] [place] [address] Urea nitrogen [Mass/Vol] 35 mg/dL High 7-20 [facility] Comment on above: Performed By: #### H EMOG, CMP3M, CRP2, LDH3, FIBGN, DDI2, APTT, FERR3 #### [facility] [address] [place] [address] Potassium [Moles/Vol] 4.3 mmol/L Normal 3.5-5.1 [facility] Comment on above: Performed By: #### H EMOG, CMP3M, CRP2, LDH3, FIBGN, DDI2, APTT, FERR3 #### [facility] [address] [place] [address] Albumin [Mass/Vol] 3.3 g/dL Low 3.5-5.0 [facility] Comment on above: Performed By: #### H EMOG, CMP3M, CRP2, LDH3, FIBGN, DDI2, APTT, FERR3 #### [facility] [address] [place] [address] Chloride [Moles/Vol] 110 mmol/L High 98-107 [facility] Comment on above: Performed By: #### H EMOG, CMP3M, CRP2, LDH3, FIBGN, DDI2, APTT, FERR3 #### [facility] [address] [place] [address] Sodium [Moles/Vol] 137 mmol/L Normal 135-145 [facility] Comment on above: Performed By: #### H EMOG, CMP3M, CRP2, LDH3, FIBGN, DDI2, APTT, FERR3 #### [facility] [address] [place] [address] Comprehensive Metabolic Pane l w/ Reflex to MGon 11-02-2020 Albumin [Mass/Vol] 3.3 g/dL Low 3.5 - 5 g/dL [place] ALP [Catalytic activity/Vol] 85 U/L 38 - 126 U/L [place] ALT [Catalytic activity/Vol] 198 U/L High 0 - 49 U/L [place] Comment on above: The ALT test is perf ormed by an updated assay method. Please note that the reference intervals have been changed and are now sex specific. Anion gap [Moles/Vol] 9 mmol/L [place], [place] AST [Catalytic activity/Vol] 104 U/L High 15 - 46 U/L [place] Bilirubin Ql (U) 0.7 mg/dL 0.2 - 1.3 mg/dL [place] Calcium [Mass/Vol] 8.8 mg/dL 8.4 - 10. 4 mg/dL [place] Chloride [Moles/Vol] 110 mmol/L High 98 - 10 7 mmol/L [place] CO2 [Moles/Vol] 18 mmol/L Low 22 - 30 mmol/L [place] Creatinine [Mass/Vol] 1.89 mg/dL High 0.52 - 1.25 mg/dL [place] EGFR IF NonAfrican Macedonian 38.4 mL/min Abnormal >60 [place] Comment on above: KDIGO guidelines pro [...] (S/P/Bld) [Vol rate/Area] 44.5 mL/min/{1.73_m2} Abnormal >60 [facility] [place] Glucose [Mass/Vol] 135 mg/dL High 70 - 100 mg/dL [facility] [place] Potassium [Moles/Vol] 4.3 mmol/L 3.5 - 5.1 mmol/L [facility] [place] Protein [Mass/Vol] 6.1 g/dL Low 6.3 - 8.2 g/dL [facility] [place] Sodium [Moles/Vol] 137 mmol/L 135 - 145 mmol/L [facility] [place] Urea nitrogen [Mass/Vol] 35 mg/dL High 7 - 20 mg/dL [facility] D-Dimer, Innovanceon -20-2 020 D-Dimer, Innovance 0.83 mg/L High 0.00-0.50 [employer] Comment on above: Result Comment: Inno quach D-Dimer values of <0.50 mg/L FEU can be used in combination with a pre-test probability model (e.g. Well's) to exclude pulmonary embolism (PE) disease, as well as an aid in the diagnosis of deep vein thrombosis (DVT). Performed By: #### H EMOG, CMP3M, CRP2, LDH3, FIBGN, DDI2, APTT, FERR3 #### [employer] [address] [place] [address] D-Dimer, Quantitativeon 12-2 0-2020 D-Dimer, Quant 0.83 mg/L High 0 - 0.5 mg/L [place] Comment on above: [employer] D-Dimer va lues of <0.50 mg/L FEU can be used in combination with a pre-test probability model (e.g. Well's) to exclude pulmonary embolism (PE) disease, as well as an aid in the diagnosis of deep vein thrombosis (DVT). Interpretation and review of laboratory results Abnormal [place] Ferritinon 11-02-2020 Ferritin [Mass/Vol] 938 ng/mL High 18-464 [facility] Comment on above: Performed By: #### H EMOG, CMP3M, CRP2, LDH3, FIBGN, DDI2, APTT, FERR3 #### [facility] [address] [place] [address] Ferritin [Mass/Vol] 938 ng/mL High 18 - 464 ng/mL [place] Interpretation and review of laboratory results Abnormal [place] Test Performed by [facility], [address] [place], [place] [address] [place] Fibrinogenon 11-02-2020 Fibrinogen 373 mg/dL Normal 200-400 [facility] Comment on above: Performed By: #### H EMOG, CMP3M, CRP2, LDH3, FIBGN, DDI2, APTT, FERR3 #### [facility] [address] [place] [address] Fibrinogen 373 mg/dL 200 - 400 mg/dL [place] Hemogramon 11-02-2020 Erythrocyte distribution width (RBC) [Ratio] 14.2 % Normal 11.5-14.5 [facility] Comment on above: Performed By: #### H EMOG, CMP3M, CRP2, LDH3, FIBGN, DDI2, APTT, FERR3 #### [facility] [address] [place] [address] Hematocrit (Bld) [Volume fraction] 39.5 % Low 40.0-52.0 [facility] Comment on above: Performed By: #### H EMOG, CMP3M, CRP2, LDH3, FIBGN, DDI2, APTT, FERR3 #### [facility] [address] [place] [address] Hemoglobin (Bld) [Mass/Vol] 13.2 g/dL Normal 13.0-18.0 [facility] Comment on above: Performed By: #### H EMOG, CMP3M, CRP2, LDH3, FIBGN, DDI2, APTT, FERR3 #### [facility] [address] [place] [address] MCH (RBC) [Entitic mass] 29.4 pg Normal 26.0-34.0 [facility] Comment on above: Performed By: #### H EMOG, CMP3M, CRP2, LDH3, FIBGN, DDI2, APTT, FERR3 #### [facility] [address] [place] [address] MCHC (RBC) [Mass/Vol] 33.5 % Normal 32.0-36.0 [facility] Comment on above: Performed By: #### H EMOG, CMP3M, CRP2, LDH3, FIBGN, DDI2, APTT, FERR3 #### [facility] [address] [place] [address] MCV (RBC) [Entitic vol] 87.8 fL Normal 80.0-98.0 [facility] Comment on above: Performed By: #### H EMOG, CMP3M, CRP2, LDH3, FIBGN, DDI2, APTT, FERR3 #### [facility] [address] [place] [address] Platelet mean volume (Bld) [Entitic vol] 7.6 fL Normal 7.4-10.4 [facility] Comment on above: Performed By: #### H EMOG, CMP3M, CRP2, LDH3, FIBGN, DDI2, APTT, FERR3 #### [facility] [address] [place] [address] Platelets (Bld) [#/Vol] 340 10*3/uL Normal 140-440 [facility] Comment on above: Performed By: #### H EMOG, CMP3M, CRP2, LDH3, FIBGN, DDI2, APTT, FERR3 #### [facility] [address] [place] [address] RBC (Bld) [#/Vol] 4.49 10*6/uL Normal 4.40-5.90 [facility] Comment on above: Performed By: #### H EMOG, CMP3M, CRP2, LDH3, FIBGN, DDI2, APTT, FERR3 #### [facility] [address] [place] [address] WBC (Bld) [#/Vol] 13.0 10*3/uL High 3.6-10.7 [facility] Comment on above: Performed By: #### H EMOG, CMP3M, CRP2, LDH3, FIBGN, DDI2, APTT, FERR3 #### [facility] [address] [place] [address] LDHon 11-02-2020 LDH 589 U/L High 120-246 [facility] Comment on above: Performed By: #### H EMOG, CMP3M, CRP2, LDH3, FIBGN, DDI2, APTT, FERR3 #### [facility] [address] [place] [address] Lactate Dehydrogenaseon 10-15 0-2020 LD 589 U/L High 120 - 246 U/L [place] Otheron 11-02-2020 Test Performed by [facility], [address] [place], [place] [address] [place] Interpretation and review of laboratory results Abnormal [place] Test Performed by [facility], [address] [place] [address] [place] C-Reactive Proteinon 020 CRP [Mass/Vol] 14.1 mg/L High 0.0-6.0 [facility] Comment on above: Result Comment: . Performed By: #### H EMOG, CMP3M, CRP2, LDH3, FIBGN, DDI2, APTT, FERR3 #### [facility] [address] [place] [address] CRP [Mass/Vol] 14.1 mg/L High 0 - 6 mg/L [place] Comment on above: . Interpretation and review of laboratory results Abnormal [place] Test Performed by [facility], [address] [place], [place] [address] [place] Comp Panel with Mg Reflexon 11-01-2020 ALT [Catalytic activity/Vol] 173 U/L High 0-49 [facility] Comment on above: Result Comment: The ALT test is performed by an updated assay method. Please note that the reference intervals have been changed and are now sex specific. Performed By: #### H EMOG, CMP3M, CRP2, LDH3, FIBGN, DDI2, APTT, FERR3 #### [facility] [address] [place] [address] Calcium [Mass/Vol] 8.7 mg/dL Normal 8.4-10.4 [facility] Comment on above: Performed By: #### H EMOG, CMP3M, CRP2, LDH3, FIBGN, DDI2, APTT, FERR3 #### [facility] [address] [place] [address] ALP [Catalytic activity/Vol] 77 U/L Normal 38-126 [facility] Comment on above: Performed By: #### H EMOG, CMP3M, CRP2, LDH3, FIBGN, DDI2, APTT, FERR3 #### [facility] [address] [place] [address] Anion gap [Moles/Vol] 7 Normal [facility] Comment on above: Performed By: #### H EMOG, CMP3M, CRP2, LDH3, FIBGN, DDI2, APTT, FERR3 #### [facility] [address] [place] [address] AST [Catalytic activity/Vol] 135 U/L High 15-46 [facility] Comment on above: Performed By: #### H EMOG, CMP3M, CRP2, LDH3, FIBGN, DDI2, APTT, FERR3 #### [facility] [address] [place] [address] Bilirubin [Mass/Vol] 0.5 mg/dL Normal 0.2-1.3 [facility] Comment on above: Performed By: #### H EMOG, CMP3M, CRP2, LDH3, FIBGN, DDI2, APTT, FERR3 #### [facility] [address] [place] [address] CO2 [Moles/Vol] 18 mmol/L Low 22-30 [facility] Comment on above: Performed By: #### H EMOG, CMP3M, CRP2, LDH3, FIBGN, DDI2, APTT, FERR3 #### [facility] [address] [place] [address] Creatinine [Mass/Vol] 1.77 mg/dL High 0.52-1.25 [facility] Comment on above: Performed By: #### H EMOG, CMP3M, CRP2, LDH3, FIBGN, DDI2, APTT, FERR3 #### [facility] [address] [place] [address] GFR/1.73 sq M predicted among blacks MDRD (S/P/Bld) [Vol rate/Area] 48.2 mL/min/{1.73_m2} Abnormal >60 [facility] Comment on above: Performed By: #### H EMOG, CMP3M, CRP2, LDH3, FIBGN, DDI2, APTT, FERR3 #### [facility] [address] [place] [address] GFR/1.73 sq M predicted among non-blacks MDRD (S/P/Bld) [Vol rate/Area] 41.6 mL/min/{1.73_m2} Abnormal >60 [facility] Comment on above: Result Comment: KDIG [...] CRP2, LDH3, FIBGN, DDI2, APTT, FERR3 #### [facility] [address] [place] [address] Glucose [Mass/Vol] 134 mg/dL High 70-100 [facility] Comment on above: Performed By: #### H EMOG, CMP3M, CRP2, LDH3, FIBGN, DDI2, APTT, FERR3 #### [facility] [address] [place] [address] Protein [Mass/Vol] 5.6 g/dL Low 6.3-8.2 [facility] Comment on above: Performed By: #### H EMOG, CMP3M, CRP2, LDH3, FIBGN, DDI2, APTT, FERR3 #### [facility] [address] [place] [address] Urea nitrogen [Mass/Vol] 32 mg/dL High 7-20 [facility] Comment on above: Performed By: #### H EMOG, CMP3M, CRP2, LDH3, FIBGN, DDI2, APTT, FERR3 #### [facility] [address] [place] [address] Potassium [Moles/Vol] 4.2 mmol/L Normal 3.5-5.1 [facility] Comment on above: Performed By: #### H EMOG, CMP3M, CRP2, LDH3, FIBGN, DDI2, APTT, FERR3 #### [facility] [address] [place] [address] Sodium [Moles/Vol] 137 mmol/L Normal 135-145 [facility] Comment on above: Performed By: #### H EMOG, CMP3M, CRP2, LDH3, FIBGN, DDI2, APTT, FERR3 #### [facility] [address] [place] [address] Albumin [Mass/Vol] 3.1 g/dL Low 3.5-5.0 [facility] Comment on above: Performed By: #### H EMOG, CMP3M, CRP2, LDH3, FIBGN, DDI2, APTT, FERR3 #### [facility] [address] [place] [address] Chloride [Moles/Vol] 113 mmol/L High 98-107 [facility] Comment on above: Performed By: #### H EMOG, CMP3M, CRP2, LDH3, FIBGN, DDI2, APTT, FERR3 #### [facility] [address] [place] [address] Comprehensive Metabolic Pane l w/ Reflex to MGon 11-01-2020 Albumin [Mass/Vol] 3.1 g/dL Low 3.5 - 5 g/dL [place] ALP [Catalytic activity/Vol] 77 U/L 38 - 126 U/L [place] ALT [Catalytic activity/Vol] 173 U/L High 0 - 49 U/L [place] Comment on above: The ALT test is perf ormed by an updated assay method. Please note that the reference intervals have been changed and are now sex specific. Anion gap [Moles/Vol] 7 mmol/L [place] AST [Catalytic activity/Vol] 135 U/L High 15 - 46 U/L [place] Bilirubin Ql (U) 0.5 mg/dL 0.2 - 1.3 mg/dL [place] Calcium [Mass/Vol] 8.7 mg/dL 8.4 - 10. 4 mg/dL [place] Chloride [Moles/Vol] 113 mmol/L High 98 - 10 7 mmol/L [place] CO2 [Moles/Vol] 18 mmol/L Low 22 - 30 mmol/L [place] Creatinine [Mass/Vol] 1.77 mg/dL High 0.52 - 1.25 mg/dL [place] EGFR IF NonAfrican [place]onian 41.6 mL/min Abnormal >60 [place] Comment on above: KDIGO guidelines pro [...] (S/P/Bld) [Vol rate/Area] 48.2 mL/min/{1.73_m2} Abnormal >60 [facility] [place] Glucose [Mass/Vol] 134 mg/dL High 70 - 100 mg/dL [facility] [place] Potassium [Moles/Vol] 4.2 mmol/L 3.5 - 5.1 mmol/L [facility] [place] Protein [Mass/Vol] 5.6 g/dL Low 6.3 - 8.2 g/dL [facility] [place] Sodium [Moles/Vol] 137 mmol/L 135 - 145 mmol/L [facility] [place] Urea nitrogen [Mass/Vol] 32 mg/dL High 7 - 20 mg/dL [place] D-Dimer, Innov[employer]on 11-01-2 020 D-Dimer, [employer] 0.87 mg/L High 0.00-0.50 [facility] Comment on above: Result Comment: Inno quach D-Dimer values of <0.50 mg/L FEU can be used in combination with a pre-test probability model (e.g. Well's) to exclude pulmonary embolism (PE) disease, as well as an aid in the diagnosis of deep vein thrombosis (DVT). Performed By: #### H EMOG, CMP3M, CRP2, LDH3, FIBGN, DDI2, APTT, FERR3 #### [employer] [address] [place] [address] D-Dimer, Quantitativeon 10-14 D-Dimer, Quant 0.87 mg/L High 0 - 0.5 mg/L [place] Comment on above: [employer] D-Dimer va lues of <0.50 mg/L FEU can be used in combination with a pre-test probability model (e.g. Well's) to exclude pulmonary embolism (PE) disease, as well as an aid in the diagnosis of deep vein thrombosis (DVT). EKG 12 Leadon 11-01-2020 Michel, [facility] Incoming Cardiology Results From [employer] - 11/01/2020 11:02 PM EST [facility] Test Date: 2020-10-31 Pat Name: Reggie León Department: 09 Room: 468 Gender: Cirilo [employer] Markup Clerk: Jean CarlosBulmaro : 1965 Requested By: FARRUKH DIAZ Order Number: [id number] Reading MD: Usama Johnston Intervals [place] Rate: 83 P: 21 WA: 192 QRS: -16 QRSD: 104 T: 28 QT: 404 QTc: 475 Interpretive Statements SINUS RHYTHM MULTIPLE VENTRICULAR PREMATURE COMPLEXES Electronically Signed On 11-01-2020 23:01:06 EST by Usama Nguyen 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: NYLA : 1965 Requested By: FARRUKH DIAZ Order Number: [id number] Reading MD: Usama Johnston Intervals [place] Rate: 83 P: 21 WA: 192 QRS: -16 QRSD: 104 T: 28 QT: 404 QTc: 475 Interpretive Statements SINUS RHYTHM MULTIPLE VENTRICULAR PREMATURE COMPLEXES Electronically Signed On 11-01-2020 23:01:06 EST by Usama Cedillo [facility] [place] Ferritinon 11-01-2020 Ferritin [Mass/Vol] 1020 ng/mL High 18-464 [facility] Comment on above: Performed By: #### H EMOG, CMP3M, CRP2, LDH3, FIBGN, DDI2, APTT, FERR3 #### [employer] [address] [place] [address] Ferritin [Mass/Vol] 1020 ng/mL High 18 - 464 ng/mL [facility] [place] Interpretation and review of laboratory results Abnormal [facility] Test Performed by [employer], [address], [place], [place] [address] [facility] [place] Fibrinogenon 11-01-2020 Fibrinogen 420 mg/dL High 200-400 [facility] [place] [facility] Comment on above: Performed By: #### H EMOG, CMP3M, CRP2, LDH3, FIBGN, DDI2, APTT, FERR3 #### [facility] [address] [place] [address] Fibrinogen 420 mg/dL High 200 - 400 mg/dL [place] LDHon 11-01-2020 LDH 665 U/L High 120-246 [facility] Comment on above: Performed By: #### H EMOG, CMP3M, CRP2, LDH3, FIBGN, DDI2, APTT, FERR3 #### [facility] [address] [place] [address] Lactate Dehydrogenaseon 10-14 LD 665 U/L High 120 - 246 U/L [place] Otheron 11-01-2020 Interpretation and review of laboratory results Abnormal [place] Test Performed by [facility], [facility] [address] [place] [address] [place] Interpretation and review of laboratory results Abnormal [place] Test Performed by [facility], [address] [place], [place] [address] [place] C-Reactive Proteinon 020 CRP [Mass/Vol] 19.2 mg/L High 0.0-6.0 [facility] Comment on above: Result Comment: . Performed By: #### H EMOG, CMP3M, CRP2, LDH3, FIBGN, DDI2, APTT, FERR3 #### [facility] [address] [place] [address] CRP [Mass/Vol] 19.2 mg/L High 0 - 6 mg/L [place] Comment on above: . CBCon 10-31-2020 Erythrocyte distribution width (RBC) [Ratio] 14.0 % 11.5 - 14.5 % [place] Hematocrit (Bld) [Volume fraction] 35.7 % Low 40 - 52 % [place] Hemoglobin (Bld) [Mass/Vol] 12.0 g/dL Low 13 - 18 g/dL [place] Interpretation and review of laboratory results Abnormal [place] MCH (RBC) [Entitic mass] 29.0 pg 26 - 34 pg [place] MCHC (RBC) [Mass/Vol] 33.7 % 32 - 36 % [place] MCV (RBC) [Entitic vol] 86.3 fL 80 - 98 fL [place] Platelet mean volume (Bld) [Entitic vol] 7.5 fL 7.4 - 10.4 fL [place] Platelets (Bld) [#/Vol] 294 10*3/uL 140 - 440 10*3/uL [place] RBC (Bld) [#/Vol] 4.14 10*6/uL Low 4.4 - 5.9 10*6/uL [place] WBC (Bld) [#/Vol] 9.5 10*3/uL 3.6 - 10.7 10*3/uL [place] Test Performed by [facility], [address] [place], [place] [address] [place] Comp Panel with Mg Reflexon 10-31-2020 ALT [Catalytic activity/Vol] 79 U/L High 0-49 [facility] Comment on above: Result Comment: The ALT test is performed by an updated assay method. Please note that the reference intervals have been changed and are now sex specific. Performed By: #### H EMOG, CMP3M, CRP2, LDH3, FIBGN, DDI2, APTT, FERR3 #### [facility] [address] [place] [address] Calcium [Mass/Vol] 8.7 mg/dL Normal 8.4-10.4 [facility] Comment on above: Performed By: #### H EMOG, CMP3M, CRP2, LDH3, FIBGN, DDI2, APTT, FERR3 #### [facility] [address] [place] [address] Glucose [Mass/Vol] 139 mg/dL High 70-100 [facility] Comment on above: Performed By: #### H EMOG, CMP3M, CRP2, LDH3, FIBGN, DDI2, APTT, FERR3 #### [facility] [address] [place] [address] Urea nitrogen [Mass/Vol] 30 mg/dL High 7-20 [facility] Comment on above: Performed By: #### H EMOG, CMP3M, CRP2, LDH3, FIBGN, DDI2, APTT, FERR3 #### [facility] [address] [place] [address] ALP [Catalytic activity/Vol] 69 U/L Normal 38-126 [facility] Comment on above: Performed By: #### H EMOG, CMP3M, CRP2, LDH3, FIBGN, DDI2, APTT, FERR3 #### [facility] [address] [place] [address] Anion gap [Moles/Vol] 7 Normal [facility] Comment on above: Performed By: #### H EMOG, CMP3M, CRP2, LDH3, FIBGN, DDI2, APTT, FERR3 #### [facility] [address] [place] [address] AST [Catalytic activity/Vol] 67 U/L High 15-46 [facility] Comment on above: Performed By: #### H EMOG, CMP3M, CRP2, LDH3, FIBGN, DDI2, APTT, FERR3 #### [facility] [address] [place] [address] Bilirubin [Mass/Vol] 0.4 mg/dL Normal 0.2-1.3 [facility] Comment on above: Performed By: #### H EMOG, CMP3M, CRP2, LDH3, FIBGN, DDI2, APTT, FERR3 #### [facility] [address] [place] [address] CO2 [Moles/Vol] 17 mmol/L Low 22-30 [facility] Comment on above: Performed By: #### H EMOG, CMP3M, CRP2, LDH3, FIBGN, DDI2, APTT, FERR3 #### [facility] [address] [place] [address] Creatinine [Mass/Vol] 1.84 mg/dL High 0.52-1.25 [facility] Comment on above: Performed By: #### H EMOG, CMP3M, CRP2, LDH3, FIBGN, DDI2, APTT, FERR3 #### [facility] [address] [place] [address] GFR/1.73 sq M predicted among blacks MDRD (S/P/Bld) [Vol rate/Area] 46.0 mL/min/{1.73_m2} Abnormal >60 [facility] Comment on above: Performed By: #### H EMOG, CMP3M, CRP2, LDH3, FIBGN, DDI2, APTT, FERR3 #### [facility] [address] [place] [address] GFR/1.73 sq M predicted among non-blacks MDRD (S/P/Bld) [Vol rate/Area] 39.7 mL/min/{1.73_m2} Abnormal >60 [facility] Comment on above: Result Comment: KDIG [...] CRP2, LDH3, FIBGN, DDI2, APTT, FERR3 #### [facility] [address] [place] [address] Protein [Mass/Vol] 5.3 g/dL Low 6.3-8.2 [facility] Comment on above: Performed By: #### H EMOG, CMP3M, CRP2, LDH3, FIBGN, DDI2, APTT, FERR3 #### [facility] [address] [place] [address] Albumin [Mass/Vol] 2.8 g/dL Low 3.5-5.0 [facility] Comment on above: Performed By: #### H EMOG, CMP3M, CRP2, LDH3, FIBGN, DDI2, APTT, FERR3 #### [facility] [address] [place] [address] Chloride [Moles/Vol] 112 mmol/L High 98-107 [facility] Comment on above: Performed By: #### H EMOG, CMP3M, CRP2, LDH3, FIBGN, DDI2, APTT, FERR3 #### [facility] [address] [place] [address] Sodium [Moles/Vol] 136 mmol/L Normal 135-145 [facility] Comment on above: Performed By: #### H EMOG, CMP3M, CRP2, LDH3, FIBGN, DDI2, APTT, FERR3 #### [facility] [address] [place] [address] Potassium [Moles/Vol] 3.8 mmol/L Normal 3.5-5.1 [place] Comment on above: Performed By: #### H EMOG, CMP3M, CRP2, LDH3, FIBGN, DDI2, APTT, FERR3 #### [facility] [address] [place] [address] Comprehensive Metabolic Pane l w/ Reflex to MGon 10-31-2020 Albumin [Mass/Vol] 2.8 g/dL Low 3.5 - 5 g/dL [place], [place] ALP [Catalytic activity/Vol] 69 U/L 38 - 126 U/L [place] ALT [Catalytic activity/Vol] 79 U/L High 0 - 49 U/L [place] Comment on above: The ALT test is perf ormed by an updated assay method. Please note that the reference intervals have been changed and are now sex specific. Anion gap [Moles/Vol] 7 mmol/L [place], [place] AST [Catalytic activity/Vol] 67 U/L High 15 - 46 U/L [place] Bilirubin Ql (U) 0.4 mg/dL 0.2 - 1.3 mg/dL [place] Calcium [Mass/Vol] 8.7 mg/dL 8.4 - 10. 4 mg/dL [place] Chloride [Moles/Vol] 112 mmol/L High 98 - 10 7 mmol/L [place] CO2 [Moles/Vol] 17 mmol/L Low 22 - 30 mmol/L [place] Creatinine [Mass/Vol] 1.84 mg/dL High 0.52 - 1.25 mg/dL [place] EGFR IF NonAfrican Macedonian 39.7 mL/min Abnormal >60 [place], [place] Comment on above: KDIGO guidelines pro [...] (S/P/Bld) [Vol rate/Area] 46.0 mL/min/{1.73_m2} Abnormal >60 [place] Glucose [Mass/Vol] 139 mg/dL High 70 - 100 mg/dL [place] Protein [Mass/Vol] 5.3 g/dL Low 6.3 - 8.2 g/dL [place] Sodium [Moles/Vol] 136 mmol/L 135 - 145 mmol/L [place] Urea nitrogen [Mass/Vol] 30 mg/dL High 7 - 20 mg/dL [place] D-Dimer, Innovanceon 12-18-2 020 D-Dimer, Innovance 0.96 mg/L High 0.00-0.50 [facility] Comment on above: Result Comment: Inno quach D-Dimer values of <0.50 mg/L FEU can be used in combination with a pre-test probability model (e.g. Well's) to exclude pulmonary embolism (PE) disease, as well as an aid in the diagnosis of deep vein thrombosis (DVT). Performed By: #### H EMOG, CMP3M, CRP2, LDH3, FIBGN, DDI2, APTT, FERR3 #### [facility] [address] [place] [address] D-Dimer, Quantitativeon 10-14 D-Dimer, Quant 0.96 mg/L High 0 - 0.5 mg/L [place] Comment on above: Innovance D-Dimer va lues of <0.50 mg/L FEU can be used in combination with a pre-test probability model (e.g. Well's) to exclude pulmonary embolism (PE) disease, as well as an aid in the diagnosis of deep vein thrombosis (DVT). Ferritinon 10-31-2020 Ferritin [Mass/Vol] 810 ng/mL High 18-464 [facility] Comment on above: Performed By: #### H EMOG, CMP3M, CRP2, LDH3, FIBGN, DDI2, APTT, FERR3 #### [facility] [address] [place] [address] Ferritin [Mass/Vol] 810 ng/mL High 18 - 464 ng/mL [place] Interpretation and review of laboratory results Abnormal [place] Test Performed by [facility], [address] [place], [place] [address] [place] Fibrinogenon 10-31-2020 Fibrinogen 455 mg/dL High 200-400 [facility] Comment on above: Performed By: #### H EMOG, CMP3M, CRP2, LDH3, FIBGN, DDI2, APTT, FERR3 #### [facility] [address] [place] [address] Fibrinogen 455 mg/dL High 200 - 400 mg/dL [place] Hemogramon 10-31-2020 Erythrocyte distribution width (RBC) [Ratio] 14.0 % Normal 11.5-14.5 [facility] Comment on above: Performed By: #### H EMOG, CMP3M, CRP2, LDH3, FIBGN, DDI2, APTT, FERR3 #### [facility] [address] [place] [address] Hematocrit (Bld) [Volume fraction] 35.7 % Low 40.0-52.0 [facility] Comment on above: Performed By: #### H EMOG, CMP3M, CRP2, LDH3, FIBGN, DDI2, APTT, FERR3 #### [facility] [address] [place] [address] Hemoglobin (Bld) [Mass/Vol] 12.0 g/dL Low 13.0-18.0 [facility] Comment on above: Performed By: #### H EMOG, CMP3M, CRP2, LDH3, FIBGN, DDI2, APTT, FERR3 #### [facility] [address] [place] [address] MCH (RBC) [Entitic mass] 29.0 pg Normal 26.0-34.0 [facility] Comment on above: Performed By: #### H EMOG, CMP3M, CRP2, LDH3, FIBGN, DDI2, APTT, FERR3 #### [facility] [address] [place] [address] MCHC (RBC) [Mass/Vol] 33.7 % Normal 32.0-36.0 [facility] Comment on above: Performed By: #### H EMOG, CMP3M, CRP2, LDH3, FIBGN, DDI2, APTT, FERR3 #### [facility] [address] [place] [address] MCV (RBC) [Entitic vol] 86.3 fL Normal 80.0-98.0 [facility] Comment on above: Performed By: #### H EMOG, CMP3M, CRP2, LDH3, FIBGN, DDI2, APTT, FERR3 #### [facility] [address] [place] [address] Platelet mean volume (Bld) [Entitic vol] 7.5 fL Normal 7.4-10.4 [facility] Comment on above: Performed By: #### H EMOG, CMP3M, CRP2, LDH3, FIBGN, DDI2, APTT, FERR3 #### [facility] [address] [place] [address] Platelets (Bld) [#/Vol] 294 10*3/uL Normal 140-440 [facility] Comment on above: Performed By: #### H EMOG, CMP3M, CRP2, LDH3, FIBGN, DDI2, APTT, FERR3 #### [facility] [address] [place] [address] RBC (Bld) [#/Vol] 4.14 10*6/uL Low 4.40-5.90 [facility] Comment on above: Performed By: #### H EMOG, CMP3M, CRP2, LDH3, FIBGN, DDI2, APTT, FERR3 #### [facility] [address] [place] [address] WBC (Bld) [#/Vol] 9.5 10*3/uL Normal 3.6-10.7 [facility] Comment on above: Performed By: #### H EMOG, CMP3M, CRP2, LDH3, FIBGN, DDI2, APTT, FERR3 #### [facility] [address] [place] [address] LDHon 10-31-2020 LDH 572 U/L High 120-246 [facility] Comment on above: Performed By: #### H EMOG, CMP3M, CRP2, LDH3, FIBGN, DDI2, APTT, FERR3 #### [facility] [address] [place] [address] Lactate Dehydrogenaseon 10-14 LD 572 U/L High 120 - 246 U/L [facility] [place], [place] Otheron 10-31-2020 Interpretation and review of laboratory results Abnormal [facility] [place] Test Performed by [facility], [facility] [address] [place] [address] [facility] [place] Interpretation and review of laboratory results Abnormal [facility] [place] Test Performed by [facility], [facility] [address] [place], [place] [address] [place] APTTon 10-30-2020 aPTT Coag (Bld) [Time] 47.0 s High 20.0-30.5 [facility] Comment on above: Result Comment: NOTE : The therapeutic time for Heparin anticoagulation, based on Xa activity inhibition, is an APTT of 46-80 seconds. Performed By: #### H EMOG, CMP3M, CRP2, LDH3, FIBGN, DDI2, APTT, FERR3 #### [facility] [address] [place] [address] aPTT Coag (Bld) [Time] 47 s High 20 - 30.5 s [place] Comment on above: NOTE: The therapeuti c time for Heparin anticoagulation, based on Xa activity inhibition, is an APTT of 46-80 seconds. C-Reactive Proteinon 020 CRP [Mass/Vol] 27.5 mg/L High 0.0-6.0 [facility] Comment on above: Result Comment: . Performed By: #### H EMOG, CMP3M, CRP2, LDH3, FIBGN, DDI2, APTT, FERR3 #### [facility] [address] [place] [address] CRP [Mass/Vol] 27.5 mg/L High 0 - 6 mg/L [place] Comment on above: . Comp Panel with Mg Reflexon 10-30-2020 ALT [Catalytic activity/Vol] 67 U/L High 0-49 [facility] Comment on above: Result Comment: The ALT test is performed by an updated assay method. Please note that the reference intervals have been changed and are now sex specific. Performed By: #### H EMOG, CMP3M, CRP2, LDH3, FIBGN, DDI2, APTT, FERR3 #### [facility] [address] [place] [place] [address] Calcium [Mass/Vol] 8.6 mg/dL Normal 8.4-10.4 [facility] Comment on above: Performed By: #### H EMOG, CMP3M, CRP2, LDH3, FIBGN, DDI2, APTT, FERR3 #### [facility] [address] [place] [address] Glucose [Mass/Vol] 142 mg/dL High 70-100 [facility] Comment on above: Performed By: #### H EMOG, CMP3M, CRP2, LDH3, FIBGN, DDI2, APTT, FERR3 #### [facility] [address] [place] [address] Urea nitrogen [Mass/Vol] 30 mg/dL High 7-20 [facility] Comment on above: Performed By: #### H EMOG, CMP3M, CRP2, LDH3, FIBGN, DDI2, APTT, FERR3 #### [facility] [address] [place] [address] ALP [Catalytic activity/Vol] 75 U/L Normal 38-126 [facility] Comment on above: Performed By: #### H EMOG, CMP3M, CRP2, LDH3, FIBGN, DDI2, APTT, FERR3 #### [facility] [address] [place] [address] Anion gap [Moles/Vol] 8 Normal [facility] Comment on above: Performed By: #### H EMOG, CMP3M, CRP2, LDH3, FIBGN, DDI2, APTT, FERR3 #### [facility] [address] [place] [address] AST [Catalytic activity/Vol] 67 U/L High 15-46 [facility] Comment on above: Performed By: #### H EMOG, CMP3M, CRP2, LDH3, FIBGN, DDI2, APTT, FERR3 #### [facility] [address] [place] [address] Bilirubin [Mass/Vol] 0.3 mg/dL Normal 0.2-1.3 [facility] Comment on above: Performed By: #### H EMOG, CMP3M, CRP2, LDH3, FIBGN, DDI2, APTT, FERR3 #### [facility] [address] [place] [address] CO2 [Moles/Vol] 18 mmol/L Low 22-30 [facility] Comment on above: Performed By: #### H EMOG, CMP3M, CRP2, LDH3, FIBGN, DDI2, APTT, FERR3 #### [facility] [address] [place] [address] Creatinine [Mass/Vol] 2.01 mg/dL High 0.52-1.25 [facility] Comment on above: Performed By: #### H EMOG, CMP3M, CRP2, LDH3, FIBGN, DDI2, APTT, FERR3 #### [facility] [address] [place] [address] GFR/1.73 sq M predicted among blacks MDRD (S/P/Bld) [Vol rate/Area] 41.3 mL/min/{1.73_m2} Abnormal >60 [facility] Comment on above: Performed By: #### H EMOG, CMP3M, CRP2, LDH3, FIBGN, DDI2, APTT, FERR3 #### [facility] [address] [place] [place] [address] GFR/1.73 sq M predicted among non-blacks MDRD (S/P/Bld) [Vol rate/Area] 35.6 mL/min/{1.73_m2} Abnormal >60 [facility] Comment on above: Result Comment: KDIG [...] CRP2, LDH3, FIBGN, DDI2, APTT, FERR3 #### [facility] [address] [place] [address] Protein [Mass/Vol] 5.7 g/dL Low 6.3-8.2 [facility] Comment on above: Performed By: #### H EMOG, CMP3M, CRP2, LDH3, FIBGN, DDI2, APTT, FERR3 #### [facility] [address] [place] [address] Potassium [Moles/Vol] 4.0 mmol/L Normal 3.5-5.1 [facility] Comment on above: Performed By: #### H EMOG, CMP3M, CRP2, LDH3, FIBGN, DDI2, APTT, FERR3 #### [facility] [address] [place] [address] Albumin [Mass/Vol] 2.9 g/dL Low 3.5-5.0 [facility] Comment on above: Performed By: #### H EMOG, CMP3M, CRP2, LDH3, FIBGN, DDI2, APTT, FERR3 #### [facility] [address] [place] [address] Chloride [Moles/Vol] 114 mmol/L High 98-107 [facility] Comment on above: Performed By: #### H EMOG, CMP3M, CRP2, LDH3, FIBGN, DDI2, APTT, FERR3 #### [facility] [address] [place] [address] Sodium [Moles/Vol] 140 mmol/L Normal 135-145 [facility] Comment on above: Performed By: #### H EMOG, CMP3M, CRP2, LDH3, FIBGN, DDI2, APTT, FERR3 #### [facility] [address] [place] [address] Comprehensive Metabolic Pane l w/ Reflex to MGon 10-30-2020 Albumin [Mass/Vol] 2.9 g/dL Low 3.5 - 5 g/dL [place] ALP [Catalytic activity/Vol] 75 U/L 38 - 126 U/L [place] ALT [Catalytic activity/Vol] 67 U/L High 0 - 49 U/L [place] Comment on above: The ALT test is perf ormed by an updated assay method. Please note that the reference intervals have been changed and are now sex specific. Anion gap [Moles/Vol] 8 mmol/L [place], [place] AST [Catalytic activity/Vol] 67 U/L High 15 - 46 U/L [place] Bilirubin Ql (U) 0.3 mg/dL 0.2 - 1.3 mg/dL [place] Calcium [Mass/Vol] 8.6 mg/dL 8.4 - 10. 4 mg/dL [place] Chloride [Moles/Vol] 114 mmol/L High 98 - 10 7 mmol/L [place] CO2 [Moles/Vol] 18 mmol/L Low 22 - 30 mmol/L [place] Creatinine [Mass/Vol] 2.01 mg/dL High 0.52 - 1.25 mg/dL [place] EGFR IF NonAfrican [place]onian 35.6 mL/min Abnormal >60 [place] Comment on above: KDIGO guidelines pro [...] (S/P/Bld) [Vol rate/Area] 41.3 mL/min/{1.73_m2} Abnormal >60 [place] Glucose [Mass/Vol] 142 mg/dL High 70 - 100 mg/dL [place] Potassium [Moles/Vol] 4.0 mmol/L 3.5 - 5.1 mmol/L [place] Protein [Mass/Vol] 5.7 g/dL Low 6.3 - 8.2 g/dL [place] Sodium [Moles/Vol] 140 mmol/L 135 - 145 mmol/L [place] Urea nitrogen [Mass/Vol] 30 mg/dL High 7 - 20 mg/dL [place] D-Dimer, Innovanceon 020 D-Dimer, Innovance 0.89 mg/L High 0.00-0.50 [facility] Comment on above: Result Comment: Inno quach D-Dimer values of <0.50 mg/L FEU can be used in combination with a pre-test probability model (e.g. Well's) to exclude pulmonary embolism (PE) disease, as well as an aid in the diagnosis of deep vein thrombosis (DVT). Performed By: #### H EMOG, CMP3M, CRP2, LDH3, FIBGN, DDI2, APTT, FERR3 #### [facility] [address] [place] [address] D-Dimer, Quantitativeon 10-14 D-Dimer, Quant 0.89 mg/L High 0 - 0.5 mg/L [place] Comment on above: Innovance D-Dimer va lues of <0.50 mg/L FEU can be used in combination with a pre-test probability model (e.g. Well's) to exclude pulmonary embolism (PE) disease, as well as an aid in the diagnosis of deep vein thrombosis (DVT). Ferritinon 10-30-2020 Ferritin [Mass/Vol] 885 ng/mL High 18-464 [facility] Comment on above: Performed By: #### H EMOG, CMP3M, CRP2, LDH3, FIBGN, DDI2, APTT, FERR3 #### [facility] [address] [place] [address] Ferritin [Mass/Vol] 885 ng/mL High 18 - 464 ng/mL [place] Interpretation and review of laboratory results Abnormal [place] Test Performed by [facility], [address] [place] [address] [place] Fibrinogenon 10-30-2020 Fibrinogen 456 mg/dL High 200-400 [facility] Comment on above: Performed By: #### H EMOG, CMP3M, CRP2, LDH3, FIBGN, DDI2, APTT, FERR3 #### [facility] [address] [place] [address] Fibrinogen 456 mg/dL High 200 - 400 mg/dL [place] LDHon 10-30-2020 LDH 613 U/L High 120-246 [facility] Comment on above: Performed By: #### H EMOG, CMP3M, CRP2, LDH3, FIBGN, DDI2, APTT, FERR3 #### [facility] [address] [place] [address] Lactate Dehydrogenaseon 10-14 LD 613 U/L High 120 - 246 U/L [place] Otheron 10-30-2020 Interpretation and review of laboratory results Abnormal [place] Test Performed by [facility], [address] [place] [address] [place] Interpretation and review of laboratory results Abnormal [place] Test Performed by [facility], [address] [place] [address] [place] APTTon 10-29-2020 aPTT Coag (Bld) [Time] 35.1 s High 20.0-30.5 [facility] Comment on above: Result Comment: NOTE : The therapeutic time for Heparin anticoagulation, based on Xa activity inhibition, is an APTT of 46-80 seconds. Performed By: #### H EMOG, CMP3M, CRP2, LDH3, FIBGN, DDI2, APTT, FERR3 #### [facility] [address] [place] [address] aPTT Coag (Bld) [Time] 35.1 s High 20 - 30.5 s [place] Comment on above: NOTE: The therapeuti c time for Heparin anticoagulation, based on Xa activity inhibition, is an APTT of 46-80 seconds. C-Reactive Proteinon 020 CRP [Mass/Vol] 34.9 mg/L High 0.0-6.0 [facility] Comment on above: Result Comment: . Performed By: #### H EMOG, CMP3M, CRP2, LDH3, FIBGN, DDI2, APTT, FERR3 #### [facility] [address] [place] [address] CRP [Mass/Vol] 34.9 mg/L High 0 - 6 mg/L [place] Comment on above: . CBCon 10-29-2020 Erythrocyte distribution width (RBC) [Ratio] 14.2 % 11.5 - 14.5 % [place] Hematocrit (Bld) [Volume fraction] 37.3 % Low 40 - 52 % [place] Hemoglobin (Bld) [Mass/Vol] 12.6 g/dL Low 13 - 18 g/dL [place] Interpretation and review of laboratory results Abnormal [place] MCH (RBC) [Entitic mass] 29.2 pg 26 - 34 pg [place] MCHC (RBC) [Mass/Vol] 33.7 % 32 - 36 % [place] MCV (RBC) [Entitic vol] 86.7 fL 80 - 98 fL [place] Platelet mean volume (Bld) [Entitic vol] 7.6 fL 7.4 - 10.4 fL [place] Platelets (Bld) [#/Vol] 255 10*3/uL 140 - 440 10*3/uL [place] RBC (Bld) [#/Vol] 4.30 10*6/uL Low 4.4 - 5.9 10*6/uL [place] WBC (Bld) [#/Vol] 7.8 10*3/uL 3.6 - 10.7 10*3/uL [place] Test Performed by [facility], [address], [place], [place] [address] [place] CBC auto differentialon 10-14 Absolute Baso # 0.0 10*3/uL 0 - 0.2 10*3/uL [place] Absolute Neut # 3.5 10*3/uL 1.8 - 7 10*3/uL [place] Basophils/100 WBC (Bld) 0.3 % 0 - 2 % [place] Eosinophils (Bld) [#/Vol] 0.0 10*3/uL 0 - 0.5 10*3/uL [place] Eosinophils/100 WBC (Bld) 0.0 % Low 1 - 6 % [place] Erythrocyte distribution width (RBC) [Ratio] 13.8 % 11.5 - 14.5 % [place] Granulocytes/100 WBC (Bld) 79.4 % 40 - 80 % [place] Hematocrit (Bld) [Volume fraction] 36.7 % Low 40 - 52 % [place] Hemoglobin (Bld) [Mass/Vol] 12.2 g/dL Low 13 - 18 g/dL [place] Interpretation and review of laboratory results Abnormal [place] Lymphocytes (Bld) [#/Vol] 0.4 10*3/uL Low 1 - 4.3 10*3/uL [place] Lymphocytes/100 WBC (Bld) 8.8 % Low 20 - 40 % [place] MCH (RBC) [Entitic mass] 29.1 pg 26 - 34 pg [place] MCHC (RBC) [Mass/Vol] 33.1 % 32 - 36 % [place] MCV (RBC) [Entitic vol] 87.8 fL 80 - 98 fL [place] Monocytes (Bld) [#/Vol] 0.5 10*3/uL 0 - 0.8 10*3/uL [place] Monocytes/100 WBC (Bld) 11.5 % High 2 - 10 % [place] Platelet mean volume (Bld) [Entitic vol] 7.9 fL 7.4 - 10.4 fL [place] Platelets (Bld) [#/Vol] 231 10*3/uL 140 - 440 10*3/uL [place] RBC (Bld) [#/Vol] 4.19 10*6/uL Low 4.4 - 5.9 10*6/uL [place] WBC (Bld) [#/Vol] 4.4 10*3/uL 3.6 - 10.7 10*3/uL [facility], [place] Test Performed by [facility], [address] [place], [place], [place] [address] [place] [address] COVID and Resp PCR Panelon 1 12-30-2019 COVID and Resp PCR Panel COVID and Resp PCR Panel --> Status: F NEGATIVE: No targets were detected by the [employer] Upper Respiratory Pathogens PCR Panel. _ Expected Result: Not Detected The [employer] Upper Respiratory Pathogens PCR Panel can detect [...] management decisions. This assay was developed by [employer] and distributed under an Emergency Use Authorization (EUA) granted by the FDA for the qualitative detection of SARS-CoV-2 nucleic acid. Provider and patient fact sheets can be found at https://www.fda.gov/m edia/549964/download and https://www.fda.gov/m edia/841926/download. Respiratory Pathogens PCR Panel. _ Expected Result: Not Detected [facility] [employer] Upper Respiratory Pathogens PCR Panel can detect [...] management decisions. This assay was developed by [employer] and distributed under an Emergency Use Authorization (EUA) granted by the FDA for the qualitative detection of SARS-CoV-2 nucleic acid. Provider and patient fact sheets can be found at https://www.[facility].gov/m edia/793609/download and https://www.fda.gov/m edia/573086/download. Normal [facility] Comment on above: Performed By: #### H EMOG, CMP3M, CRP2, LDH3, FIBGN, DDI2, APTT, FERR3 #### [facility] [address] [place] [address] CTA CHEST W WO CONTRASTon Patient Name: REGGIE LEÓN [employer]ography ACCESSION EXAM DATE/TIME PROCEDURE ORDERING PROVIDER [id number] 10/29/2020 16:29 EST CTA Chest w/ + w/o MD EMILY, FARRUKH MCCORMICK Contrast CPT code 30979 Q9967 Reason For Exam (CTA Chest w/ + w/o Contrast) Hypoxia and elevated D-dimer, possible COVID+ and PE? Report Reasons for examination: Hypoxia, elevated d-dimer, Covid 19. CT scan of the chest were performed with bolus contrast and high resolution scans for CT pulmonary angiographic study, with images post-processed by myself on [employer] workstation, with 3D - volume rendered CT [...] WILLIAM Transcribed Date and Time: 10/29/2020 4:51 [facility], [place] Michel, [facility] Incoming Radiology Results From [facility] - 10/29/2020 4:51 PM EST Patient Name: REGGIE LEÓN Computed Tomography ACCESSION EXAM DATE/TIME PROCEDURE ORDERING PROVIDER [id number] 10/29/2020 16:29 EST CTA Chest w/ + w/o MD EMILY, FARRUKH MCCORMICK Contrast CPT code 02090 Q9967 Reason For Exam (CTA Chest w/ + w/o Contrast) Hypoxia and elevated D-dimer, possible COVID+ and PE? Report Reasons for examination: Hypoxia, elevated d-dimer, Covid 19. CT scan of the chest were performed with bolus contrast and high resolution scans for CT pulmonary angiographic study, with images post-processed by myself on [employer] workstation, with 3D - volume rendered CT [...] WILLIAM Transcribed Date and Time: 10/29/2020 4:51 [facility], [place] CTA Chest w/ + w/o Contrasto n 10-29-2020 CTA Chest w/ + w/o Contrast Patient Name: REGGIE LEÓN Computed Tomography ACCESSION EXAM DATE/TIME PROCEDURE ORDERING PROVIDER [id number] 10/29/2020 16:29 EST CTA Chest w/ + w/o MD EMILY, CINDYJAQUELINE ANNY Contrast CPT code 16960 Q9967 Reason For Exam (CTA Chest w/ + w/o Contrast) Hypoxia and elevated D-dimer, possible COVID+ and PE? Report Reasons for examination: Hypoxia, elevated d-dimer, Covid 19. CT scan of the chest were performed with bolus contrast and high resolution scans for CT pulmonary angiographic study, with images post-processed by myself on [employer] workstation, with 3D - volume rendered CT [...] Transcribed Date and Time: 10/29/2020 4:51 Normal [facility] Comp Panel with Mg Reflexon 10-29-2020 ALP [Catalytic activity/Vol] 71 U/L Normal 38-126 [facility] Comment on above: Performed By: #### H EMOG, CMP3M, CRP2, LDH3, FIBGN, DDI2, APTT, FERR3 #### [facility] [address] [place] [address] ALT [Catalytic activity/Vol] 67 U/L High 0-49 [facility] Comment on above: Result Comment: The ALT test is performed by an updated assay method. Please note that the reference intervals have been changed and are now sex specific. Performed By: #### H EMOG, CMP3M, CRP2, LDH3, FIBGN, DDI2, APTT, FERR3 #### [facility] [address] [place] [address] Anion gap [Moles/Vol] 7 Normal [facility] Comment on above: Performed By: #### H EMOG, CMP3M, CRP2, LDH3, FIBGN, DDI2, APTT, FERR3 #### [facility] [address] [place] [address] AST [Catalytic activity/Vol] 88 U/L High 15-46 [facility] Comment on above: Performed By: #### H EMOG, CMP3M, CRP2, LDH3, FIBGN, DDI2, APTT, FERR3 #### [facility] [address] [place] [address] Bilirubin [Mass/Vol] 0.6 mg/dL Normal 0.2-1.3 [facility] Comment on above: Performed By: #### H EMOG, CMP3M, CRP2, LDH3, FIBGN, DDI2, APTT, FERR3 #### [facility] [address] [place] [address] Calcium [Mass/Vol] 8.9 mg/dL Normal 8.4-10.4 [facility] Comment on above: Performed By: #### H EMOG, CMP3M, CRP2, LDH3, FIBGN, DDI2, APTT, FERR3 #### [facility] [address] [place] [address] CO2 [Moles/Vol] 18 mmol/L Low 22-30 [facility] Comment on above: Performed By: #### H EMOG, CMP3M, CRP2, LDH3, FIBGN, DDI2, APTT, FERR3 #### [facility] [address] [place] [address] Creatinine [Mass/Vol] 2.24 mg/dL High 0.52-1.25 [facility] Comment on above: Performed By: #### H EMOG, CMP3M, CRP2, LDH3, FIBGN, DDI2, APTT, FERR3 #### [facility] [address] [place] [address] GFR/1.73 sq M predicted among blacks MDRD (S/P/Bld) [Vol rate/Area] 36.2 mL/min/{1.73_m2} Abnormal >60 [facility] Comment on above: Performed By: #### H EMOG, CMP3M, CRP2, LDH3, FIBGN, DDI2, APTT, FERR3 #### [facility] [address] [place] [address] GFR/1.73 sq M predicted among non-blacks MDRD (S/P/Bld) [Vol rate/Area] 31.3 mL/min/{1.73_m2} Abnormal >60 [facility] Comment on above: Result Comment: KDIG [...] CRP2, LDH3, FIBGN, DDI2, APTT, FERR3 #### [facility] [address] [place] [address] Glucose [Mass/Vol] 132 mg/dL High 70-100 [facility] Comment on above: Performed By: #### H EMOG, CMP3M, CRP2, LDH3, FIBGN, DDI2, APTT, FERR3 #### [facility] [address] [place] [address] Protein [Mass/Vol] 6.0 g/dL Low 6.3-8.2 [facility] Comment on above: Performed By: #### H EMOG, CMP3M, CRP2, LDH3, FIBGN, DDI2, APTT, FERR3 #### [facility] [address] [place] [address] Urea nitrogen [Mass/Vol] 33 mg/dL High 7-20 [facility] Comment on above: Performed By: #### H EMOG, CMP3M, CRP2, LDH3, FIBGN, DDI2, APTT, FERR3 #### [facility] [address] [place] [address] Potassium [Moles/Vol] 3.9 mmol/L Normal 3.5-5.1 [facility] Comment on above: Performed By: #### H EMOG, CMP3M, CRP2, LDH3, FIBGN, DDI2, APTT, FERR3 #### [facility] [address] [place] [address] Albumin [Mass/Vol] 3.2 g/dL Low 3.5-5.0 [facility] Comment on above: Performed By: #### H EMOG, CMP3M, CRP2, LDH3, FIBGN, DDI2, APTT, FERR3 #### [facility] [address] [place] [address] Chloride [Moles/Vol] 112 mmol/L High 98-107 [facility] Comment on above: Performed By: #### H EMOG, CMP3M, CRP2, LDH3, FIBGN, DDI2, APTT, FERR3 #### [facility] [address] [place] [address] Sodium [Moles/Vol] 137 mmol/L Normal 135-145 [facility] Comment on above: Performed By: #### H EMOG, CMP3M, CRP2, LDH3, FIBGN, DDI2, APTT, FERR3 #### [facility] [address] [place] [address] ALP [Catalytic activity/Vol] 81 U/L Normal 38-126 [facility] Comment on above: Performed By: #### H EMOG, CMP3M, CRP2, LDH3, FIBGN, DDI2, APTT, FERR3 #### [facility] [address] [place] [address] ALT [Catalytic activity/Vol] 67 U/L High 0-49 [facility] Comment on above: Result Comment: The ALT test is performed by an updated assay method. Please note that the reference intervals have been changed and are now sex specific. Performed By: #### H EMOG, CMP3M, CRP2, LDH3, FIBGN, DDI2, APTT, FERR3 #### [facility] [address] [place] [address] Anion gap [Moles/Vol] 9 Normal [facility] Comment on above: Performed By: #### H EMOG, CMP3M, CRP2, LDH3, FIBGN, DDI2, APTT, FERR3 #### [facility] [address] [place] [address] AST [Catalytic activity/Vol] 86 U/L High 15-46 [facility] Comment on above: Performed By: #### H EMOG, CMP3M, CRP2, LDH3, FIBGN, DDI2, APTT, FERR3 #### [facility] [address] [place] [address] Calcium [Mass/Vol] 8.5 mg/dL Normal 8.4-10.4 [facility] Comment on above: Performed By: #### H EMOG, CMP3M, CRP2, LDH3, FIBGN, DDI2, APTT, FERR3 #### [facility] [address] [place] [address] CO2 [Moles/Vol] 17 mmol/L Low 22-30 [facility] Comment on above: Performed By: #### H EMOG, CMP3M, CRP2, LDH3, FIBGN, DDI2, APTT, FERR3 #### [facility] [address] [place] [address] Glucose [Mass/Vol] 139 mg/dL High 70-100 [facility] Comment on above: Performed By: #### H EMOG, CMP3M, CRP2, LDH3, FIBGN, DDI2, APTT, FERR3 #### [facility] [address] [place] [address] Protein [Mass/Vol] 5.8 g/dL Low 6.3-8.2 [facility] Comment on above: Performed By: #### H EMOG, CMP3M, CRP2, LDH3, FIBGN, DDI2, APTT, FERR3 #### [facility] [address] [place] [address] Urea nitrogen [Mass/Vol] 31 mg/dL High 7-20 [facility] Comment on above: Performed By: #### H EMOG, CMP3M, CRP2, LDH3, FIBGN, DDI2, APTT, FERR3 #### [facility] [address] [place] [address] Bilirubin [Mass/Vol] 0.5 mg/dL Normal 0.2-1.3 [facility] Comment on above: Performed By: #### H EMOG, CMP3M, CRP2, LDH3, FIBGN, DDI2, APTT, FERR3 #### [facility] [address] [place] [address] Creatinine [Mass/Vol] 2.37 mg/dL High 0.52-1.25 [facility] Comment on above: Performed By: #### H EMOG, CMP3M, CRP2, LDH3, FIBGN, DDI2, APTT, FERR3 #### [facility] [address] [place] [address] GFR/1.73 sq M predicted among blacks MDRD (S/P/Bld) [Vol rate/Area] 33.9 mL/min/{1.73_m2} Abnormal >60 [facility] Comment on above: Performed By: #### H EMOG, CMP3M, CRP2, LDH3, FIBGN, DDI2, APTT, FERR3 #### [facility] [address] [place] [address] GFR/1.73 sq M predicted among non-blacks MDRD (S/P/Bld) [Vol rate/Area] 29.2 mL/min/{1.73_m2} Abnormal >60 [facility] Comment on above: Result Comment: KDIG [...] CRP2, LDH3, FIBGN, DDI2, APTT, FERR3 #### [facility] [address] [place] [address] Potassium [Moles/Vol] 4.3 mmol/L Normal 3.5-5.1 [facility] Comment on above: Performed By: #### H EMOG, CMP3M, CRP2, LDH3, FIBGN, DDI2, APTT, FERR3 #### [facility] [address] [place] [address] Sodium [Moles/Vol] 136 mmol/L Normal 135-145 [facility] Comment on above: Performed By: #### H EMOG, CMP3M, CRP2, LDH3, FIBGN, DDI2, APTT, FERR3 #### [facility] [address] [place] [address] Albumin [Mass/Vol] 3.0 g/dL Low 3.5-5.0 [facility] Comment on above: Performed By: #### H EMOG, CMP3M, CRP2, LDH3, FIBGN, DDI2, APTT, FERR3 #### [facility] [address] [place] [address] Chloride [Moles/Vol] 110 mmol/L High 98-107 [facility] Comment on above: Performed By: #### H EMOG, CMP3M, CRP2, LDH3, FIBGN, DDI2, APTT, FERR3 #### [facility] [address] [place] [address] Comprehensive Metabolic Pane l w/ Reflex to MGon 10-29-2020 Albumin [Mass/Vol] 3.2 g/dL Low 3.5 - 5 g/dL [place] ALP [Catalytic activity/Vol] 71 U/L 38 - 126 U/L [place] ALT [Catalytic activity/Vol] 67 U/L High 0 - 49 U/L [place] Comment on above: The ALT test is perf ormed by an updated assay method. Please note that the reference intervals have been changed and are now sex specific. Anion gap [Moles/Vol] 7 mmol/L [place] AST [Catalytic activity/Vol] 88 U/L High 15 - 46 U/L [place] Bilirubin Ql (U) 0.6 mg/dL 0.2 - 1.3 mg/dL [place] Calcium [Mass/Vol] 8.9 mg/dL 8.4 - 10. 4 mg/dL [place] Chloride [Moles/Vol] 112 mmol/L High 98 - 10 7 mmol/L [place] CO2 [Moles/Vol] 18 mmol/L Low 22 - 30 mmol/L [place] Creatinine [Mass/Vol] 2.24 mg/dL High 0.52 - 1.25 mg/dL [place] EGFR IF NonAfrican Macedonian 31.3 mL/min Abnormal >60 [place] Comment on above: KDIGO guidelines pro [...] (S/P/Bld) [Vol rate/Area] 36.2 mL/min/{1.73_m2} Abnormal >60 [place] Glucose [Mass/Vol] 132 mg/dL High 70 - 100 mg/dL [place] Interpretation and review of laboratory results Abnormal [place] Potassium [Moles/Vol] 3.9 mmol/L 3.5 - 5.1 mmol/L [place] Protein [Mass/Vol] 6.0 g/dL Low 6.3 - 8.2 g/dL [place] Sodium [Moles/Vol] 137 mmol/L 135 - 145 mmol/L [place] Urea nitrogen [Mass/Vol] 33 mg/dL High 7 - 20 mg/dL [place] Test Performed by [facility], [address] [place] [address] [place] Albumin [Mass/Vol] 3.0 g/dL Low 3.5 - 5 g/dL [place] ALP [Catalytic activity/Vol] 81 U/L 38 - 126 U/L [place] ALT [Catalytic activity/Vol] 67 U/L High 0 - 49 U/L [place] Comment on above: The ALT test is perf ormed by an updated assay method. Please note that the reference intervals have been changed and are now sex specific. Anion gap [Moles/Vol] 9 mmol/L [place] AST [Catalytic activity/Vol] 86 U/L High 15 - 46 U/L [place] Bilirubin Ql (U) 0.5 mg/dL 0.2 - 1.3 mg/dL [place] Calcium [Mass/Vol] 8.5 mg/dL 8.4 - 10. 4 mg/dL [place] Chloride [Moles/Vol] 110 mmol/L High 98 - 10 7 mmol/L [place] CO2 [Moles/Vol] 17 mmol/L Low 22 - 30 mmol/L [place] Creatinine [Mass/Vol] 2.37 mg/dL High 0.52 - 1.25 mg/dL [place] EGFR IF NonAfrican [place] 29.2 mL/min Abnormal >60 [place] Comment on above: KDIGO guidelines pro [...] (S/P/Bld) [Vol rate/Area] 33.9 mL/min/{1.73_m2} Abnormal >60 [place] Glucose [Mass/Vol] 139 mg/dL High 70 - 100 mg/dL [place] Potassium [Moles/Vol] 4.3 mmol/L 3.5 - 5.1 mmol/L [place] Protein [Mass/Vol] 5.8 g/dL Low 6.3 - 8.2 g/dL [place] Sodium [Moles/Vol] 136 mmol/L 135 - 145 mmol/L [place] Urea nitrogen [Mass/Vol] 31 mg/dL High 7 - 20 mg/dL [place] D-Dimer, Innovanceon 12-16-2 020 D-Dimer, Innovance 1.54 mg/L High 0.00-0.50 [facility] Comment on above: Result Comment: Inno quach D-Dimer values of <0.50 mg/L FEU can be used in combination with a pre-test probability model (e.g. Well's) to exclude pulmonary embolism (PE) disease, as well as an aid in the diagnosis of deep vein thrombosis (DVT). Performed By: #### H EMOG, CMP3M, CRP2, LDH3, FIBGN, DDI2, APTT, FERR3 #### [facility] [address] [place] [address] D-Dimer, Innovance 1.23 mg/L High 0.00-0.50 [facility] Comment on above: Result Comment: Inno quach D-Dimer values of <0.50 mg/L FEU can be used in combination with a pre-test probability model (e.g. Well's) to exclude pulmonary embolism (PE) disease, as well as an aid in the diagnosis of deep vein thrombosis (DVT). Performed By: #### H EMOG, CMP3M, CRP2, LDH3, FIBGN, DDI2, APTT, FERR3 #### [facility] [address] [place] [address] D-Dimer, Quantitativeon 10-14 D-Dimer, Quant 1.54 mg/L High 0 - 0.5 mg/L [facility], [place] Comment on above: Innovance D-Dimer va lues of <0.50 mg/L FEU can be used in combination with a pre-test probability model (e.g. Well's) to exclude pulmonary embolism (PE) disease, as well as an aid in the diagnosis of deep vein thrombosis (DVT). D-Dimer, Quant 1.23 mg/L High 0 - 0.5 mg/L [facility], [place] Comment on above: Innovance D-Dimer va lues of <0.50 mg/L FEU can be used in combination with a pre-test probability model (e.g. Well's) to exclude pulmonary embolism (PE) disease, as well as an aid in the diagnosis of deep vein thrombosis (DVT). 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 : 1965 Requested By: ANDREW SILVER Order Number: [id number] Reading MD: Usama Johnston Intervals [place] Rate: 85 P: 15 WA: 184 QRS: -12 QRSD: 104 T: 73 QT: 408 QTc: 486 Interpretive Statements SINUS RHYTHM Electronically Signed On 10-29-2020 9:40:09 EST by Usama [facility] Test Date: 2020-10-28 Pat Name: Reggie León Department: 2AED Room: 468 Gender: M 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 : 1965 Requested By: ANDREW SILVER Order Number: [id number] Reading MD: Usama Cedillo Measurements Intervals [place] Rate: 85 P: 15 WA: 184 QRS: -12 QRSD: 104 T: 73 QT: 408 QTc: 486 Interpretive Statements SINUS RHYTHM Electronically Signed On 10-29-2020 9:40:09 EST by [facility] Ferritinon 10-29-2020 Ferritin [Mass/Vol] 714 ng/mL High 18-464 [facility] Comment on above: Performed By: #### H EMOG, CMP3M, CRP2, LDH3, FIBGN, DDI2, APTT, FERR3 #### [facility] [address] [place] [address] Ferritin [Mass/Vol] 714 ng/mL High 18 - 464 ng/mL [place] Interpretation and review of laboratory results Abnormal [place] Test Performed by [facility], [address], [place], [place] [address] [place] Fibrinogenon 10-29-2020 Fibrinogen 534 mg/dL High 200-400 [facility] Comment on above: Performed By: #### H EMOG, CMP3M, CRP2, LDH3, FIBGN, DDI2, APTT, FERR3 #### [facility] [address] [place] [address] Fibrinogen 534 mg/dL High 200 - 400 mg/dL [place] Fibrinogen 587 mg/dL High 200-400 [facility] Comment on above: Performed By: #### H EMOG, CMP3M, CRP2, LDH3, FIBGN, DDI2, APTT, FERR3 #### [facility] [address] [place] [address] Fibrinogen 587 mg/dL High 200 - 400 mg/dL [place] Hemogramon 10-29-2020 Erythrocyte distribution width (RBC) [Ratio] 14.2 % Normal 11.5-14.5 [facility] Comment on above: Performed By: #### H EMOG, CMP3M, CRP2, LDH3, FIBGN, DDI2, APTT, FERR3 #### [facility] [address] [place] [address] Hematocrit (Bld) [Volume fraction] 37.3 % Low 40.0-52.0 [facility] Comment on above: Performed By: #### H EMOG, CMP3M, CRP2, LDH3, FIBGN, DDI2, APTT, FERR3 #### [facility] [address] [place] [address] Hemoglobin (Bld) [Mass/Vol] 12.6 g/dL Low 13.0-18.0 [facility] Comment on above: Performed By: #### H EMOG, CMP3M, CRP2, LDH3, FIBGN, DDI2, APTT, FERR3 #### [facility] [address] [place] [address] MCH (RBC) [Entitic mass] 29.2 pg Normal 26.0-34.0 [facility] Comment on above: Performed By: #### H EMOG, CMP3M, CRP2, LDH3, FIBGN, DDI2, APTT, FERR3 #### [facility] [address] [place] [address] MCHC (RBC) [Mass/Vol] 33.7 % Normal 32.0-36.0 [facility] Comment on above: Performed By: #### H EMOG, CMP3M, CRP2, LDH3, FIBGN, DDI2, APTT, FERR3 #### [facility] [address] [place] [address] MCV (RBC) [Entitic vol] 86.7 fL Normal 80.0-98.0 [facility] Comment on above: Performed By: #### H EMOG, CMP3M, CRP2, LDH3, FIBGN, DDI2, APTT, FERR3 #### [facility] [address] [place] [address] Platelet mean volume (Bld) [Entitic vol] 7.6 fL Normal 7.4-10.4 [facility] Comment on above: Performed By: #### H EMOG, CMP3M, CRP2, LDH3, FIBGN, DDI2, APTT, FERR3 #### [facility] [address] [place] [address] Platelets (Bld) [#/Vol] 255 10*3/uL Normal 140-440 [facility] Comment on above: Performed By: #### H EMOG, CMP3M, CRP2, LDH3, FIBGN, DDI2, APTT, FERR3 #### [facility] [address] [place] [address] RBC (Bld) [#/Vol] 4.30 10*6/uL Low 4.40-5.90 [facility] Comment on above: Performed By: #### H EMOG, CMP3M, CRP2, LDH3, FIBGN, DDI2, APTT, FERR3 #### [facility] [address] [place] [address] WBC (Bld) [#/Vol] 7.8 10*3/uL Normal 3.6-10.7 [facility] Comment on above: Performed By: #### H EMOG, CMP3M, CRP2, LDH3, FIBGN, DDI2, APTT, FERR3 #### [facility] [address] [place] [address] Hemogram w/ Autodiffon 10-29 Abs Baso Cnt 0.0 10*3/uL Normal 0.0-0.2 [facility] Comment on above: Performed By: #### H EMOG, CMP3M, CRP2, LDH3, FIBGN, DDI2, APTT, FERR3 #### [facility] [address] [place] [address] Abs Neutrophile Cnt 3.5 10*3/uL Normal 1.8-7.0 [facility] Comment on above: Performed By: #### H EMOG, CMP3M, CRP2, LDH3, FIBGN, DDI2, APTT, FERR3 #### [facility] [address] [place] [address] Basophils/100 WBC (Bld) 0.3 % Normal 0.0-2.0 [facility] Comment on above: Performed By: #### H EMOG, CMP3M, CRP2, LDH3, FIBGN, DDI2, APTT, FERR3 #### [facility] [address] [place] [address] Eosinophils (Bld) [#/Vol] 0.0 10*3/uL Normal 0.0-0.5 [facility] Comment on above: Performed By: #### H EMOG, CMP3M, CRP2, LDH3, FIBGN, DDI2, APTT, FERR3 #### [facility] [address] [place] [address] Eosinophils/100 WBC (Bld) 0.0 % Low 1.0-6.0 [facility] Comment on above: Performed By: #### H EMOG, CMP3M, CRP2, LDH3, FIBGN, DDI2, APTT, FERR3 #### [facility] [address] [place] [address] Erythrocyte distribution width (RBC) [Ratio] 13.8 % Normal 11.5-14.5 [facility] Comment on above: Performed By: #### H EMOG, CMP3M, CRP2, LDH3, FIBGN, DDI2, APTT, FERR3 #### [facility] [address] [place] [address] Granulocytes/100 WBC (Bld) 79.4 % Normal 40.0-80.0 [facility] Comment on above: Performed By: #### H EMOG, CMP3M, CRP2, LDH3, FIBGN, DDI2, APTT, FERR3 #### [facility] [address] [place] [address] Hematocrit (Bld) [Volume fraction] 36.7 % Low 40.0-52.0 [facility] Comment on above: Performed By: #### H EMOG, CMP3M, CRP2, LDH3, FIBGN, DDI2, APTT, FERR3 #### [facility] [address] [place] [address] Hemoglobin (Bld) [Mass/Vol] 12.2 g/dL Low 13.0-18.0 [facility] Comment on above: Performed By: #### H EMOG, CMP3M, CRP2, LDH3, FIBGN, DDI2, APTT, FERR3 #### [facility] [address] [place] [address] Lymphocytes (Bld) [#/Vol] 0.4 10*3/uL Low 1.0-4.3 [facility] Comment on above: Performed By: #### H EMOG, CMP3M, CRP2, LDH3, FIBGN, DDI2, APTT, FERR3 #### [facility] [address] [place] [address] Lymphocytes/100 WBC (Bld) 8.8 % Low 20.0-40.0 [facility] Comment on above: Performed By: #### H EMOG, CMP3M, CRP2, LDH3, FIBGN, DDI2, APTT, FERR3 #### [facility] [address] [place] [address] MCH (RBC) [Entitic mass] 29.1 pg Normal 26.0-34.0 [facility] Comment on above: Performed By: #### H EMOG, CMP3M, CRP2, LDH3, FIBGN, DDI2, APTT, FERR3 #### [facility] [address] [place] [address] MCHC (RBC) [Mass/Vol] 33.1 % Normal 32.0-36.0 [facility] Comment on above: Performed By: #### H EMOG, CMP3M, CRP2, LDH3, FIBGN, DDI2, APTT, FERR3 #### [facility] [address] [place] [address] MCV (RBC) [Entitic vol] 87.8 fL Normal 80.0-98.0 [facility] Comment on above: Performed By: #### H EMOG, CMP3M, CRP2, LDH3, FIBGN, DDI2, APTT, FERR3 #### [facility] [address] [place] [address] Monocytes (Bld) [#/Vol] 0.5 10*3/uL Normal 0.0-0.8 [facility] Comment on above: Performed By: #### H EMOG, CMP3M, CRP2, LDH3, FIBGN, DDI2, APTT, FERR3 #### [facility] [address] [place] [address] Monocytes/100 WBC (Bld) 11.5 % High 2.0-10.0 [facility] Comment on above: Performed By: #### H EMOG, CMP3M, CRP2, LDH3, FIBGN, DDI2, APTT, FERR3 #### [facility] [address] [place] [address] Platelet mean volume (Bld) [Entitic vol] 7.9 fL Normal 7.4-10.4 [facility] Comment on above: Performed By: #### H EMOG, CMP3M, CRP2, LDH3, FIBGN, DDI2, APTT, FERR3 #### [facility] [address] [place] [address] Platelets (Bld) [#/Vol] 231 10*3/uL Normal 140-440 [facility] Comment on above: Performed By: #### H EMOG, CMP3M, CRP2, LDH3, FIBGN, DDI2, APTT, FERR3 #### [facility] [address] [place] [address] RBC (Bld) [#/Vol] 4.19 10*6/uL Low 4.40-5.90 [facility] Comment on above: Performed By: #### H EMOG, CMP3M, CRP2, LDH3, FIBGN, DDI2, APTT, FERR3 #### [facility] [address] [place] [address] WBC (Bld) [#/Vol] 4.4 10*3/uL Normal 3.6-10.7 [facility] Comment on above: Performed By: #### H EMOG, CMP3M, CRP2, LDH3, FIBGN, DDI2, APTT, FERR3 #### [facility] [address] [place] [address] LDHon 10-29-2020 LDH 676 U/L High 120-246 [facility] Comment on above: Performed By: #### H EMOG, CMP3M, CRP2, LDH3, FIBGN, DDI2, APTT, FERR3 #### [facility] [address] [place] [address] Lactate Dehydrogenaseon 10-14 LD 676 U/L High 120 - 246 U/L [place] Lithiumon 10-29-2020 [place] [Moles/Vol] 0.7 mmol/L Normal 0.6-1.2 [facility] Comment on above: Performed By: #### H EMOG, CMP3M, CRP2, LDH3, FIBGN, DDI2, APTT, FERR3 #### [facility] [address] [address] [place] Levelon 10-29-2020 [place] Lvl 0.7 mmol/L 0.6 - 1.2 mmol/L [place] Otheron 10-29-2020 Interpretation and review of laboratory results Abnormal [place] Test Performed by [facility], [facility] [address] [place], [place] [id number] [place] [address] Interpretation and review of laboratory results Abnormal [place] Test Performed by [facility], [facility] [address] [place], [place] [id number] [place] [address] Interpretation and review of laboratory results Abnormal [place] Test Performed by [facility], [facility] [address] [place], [place] [id number] [place] [address] Procalcitoninon 10-29-2020 Procalcitonin 0.31 ng/mL Abnormal <0.10 [facility] Comment on above: Performed By: #### H EMOG, CMP3M, CRP2, LDH3, FIBGN, DDI2, APTT, FERR3 #### [facility] [address] [place] [address] Interpretation and review of laboratory results Abnormal [place] Procalcitonin 0.31 ng/mL Abnormal <0.10 [place] Sodium [Moles/Vol] See Below [place] Comment on above: PCT <0.50 = Low risk of severe sepsis and/or septic shock. PCT >2.00 = High risk of severe sepsis and/or septic shock. Test [facility], [address] [place] [id number] [place], [place] Vit D 25-OH, Totalon 020 Vit D 25-OH, Total 69 ng/mL Normal 30-100 [facility] Comment on above: Result Comment: Ther apy is based on measurement of Total 25-OHD with the following classification levels: Less than 20 ng/mL: Indicative of Vit D deficiency 20-30 ng/mL: Suggests Vit D insufficiency Optimal: Greater than or equal to 30 ng/mL Test performed by [employer], measuring Total Vitamin D, not individual fractions. Performed By: #### H EMOG, CMP3M, CRP2, LDH3, FIBGN, DDI2, APTT, FERR3 #### [facility] [address] [place] [address] Vitamin D 25 Hydroxyon 10-29 Vit D, 25-Hydroxy 69 ng/mL 30 - 100 ng/mL [place], [place] Comment on above: Therapy is based on measurement of Total 25-OHD with the following classification levels: Less than 20 ng/mL: Indicative of Vit D deficiency 20-30 ng/mL: Suggests Vit D insufficiency Optimal: Greater than or equal to 30 ng/mL Test performed by [employer], measuring Total Vitamin D, not individual fractions. Test Performed by [employer] [facility], [address], [place], [place] [address] [place], [place] Arterial Blood Gas Respirato sarah 10-28-2020 Base Excess -5.8 mmol/L Low -3.0-3.0 [facility] Comment on above: Performed By: #### A BGE #### [facility] [address] [place] [address] CO2 [Moles/Vol] 19.3 mmol/L Low 23.0-27.0 [facility] Comment on above: Performed By: #### A BGE #### [facility] [address] [place] [address] FIO2 21 Normal [facility] Comment on above: Result Comment: Perf ormed by CLIA ID: [id number] [place], [place] Performed By: #### A BGE #### [facility] [address] [place] [address] HCO3 (Bld) [Moles/Vol] 18.3 mmol/L Low 21.0-25.0 [facility] Comment on above: Performed By: #### A BGE #### [facility] [address] [place] [address] Oxygen (Bld) [Partial pressure] 69.8 mm[Hg] Low 80.0-100.0 [facility] Comment on above: Performed By: #### A BGE #### [facility] [address] [place] [address] Oxygen saturation in Blood 93.6 % Low 95.0-100. 0 [facility] Comment on above: Performed By: #### A BGE #### [facility] [address] [place] [address] pCO2 31.2 mm[Hg] Low 35.0-45.0 [facility] Comment on above: Performed By: #### A BGE #### [facility] [address] [place] [address] pH (Bld) 7.376 Normal 7.350-7.450 [facility] Comment on above: Performed By: #### A BGE #### [facility] [address] [place] [address] Brain Natriuretic Peptideon 10-28-2020 Natriuretic peptide B (Bld) [Mass/Vol] 47 pg/mL 0 - 125 pg/mL [facility], [place] CR Chest Portableon 10-28-20 20 CR Chest Portable Patient Name: REGGIE LEÓN Diagnostic Radiology ACCESSION EXAM DATE/TIME PROCEDURE ORDERING PROVIDER [id number] 10/28/2020 15:05 EST CR Chest Portable BALAJI SILVER DANIEL M CPT code 37332 Reason For Exam (CR Chest Portable) dyspnea [...] Transcribed Date and Time: 10/28/2020 3:21 Normal [facility] Comp Metabolic Panelon 10-28 ALP [Catalytic activity/Vol] 82 U/L Normal 38-126 [facility] Comment on above: Performed By: #### H EMOG, CMP3M, CRP2, LDH3, FIBGN, DDI2, APTT, FERR3 #### [facility] [address] [place] [address] ALT [Catalytic activity/Vol] 60 U/L High 0-49 [facility] Comment on above: Result Comment: The ALT test is performed by an updated assay method. Please note that the reference intervals have been changed and are now sex specific. Performed By: #### H EMOG, CMP3M, CRP2, LDH3, FIBGN, DDI2, APTT, FERR3 #### [facility] [address] [place] [address] Calcium [Mass/Vol] 8.6 mg/dL Normal 8.4-10.4 [facility] Comment on above: Performed By: #### H EMOG, CMP3M, CRP2, LDH3, FIBGN, DDI2, APTT, FERR3 #### [facility] [address] [place] [address] Glucose [Mass/Vol] 122 mg/dL High 70-100 [facility] Comment on above: Performed By: #### H EMOG, CMP3M, CRP2, LDH3, FIBGN, DDI2, APTT, FERR3 #### [facility] [address] [place] [address] Protein [Mass/Vol] 6.2 g/dL Low 6.3-8.2 [facility] Comment on above: Performed By: #### H EMOG, CMP3M, CRP2, LDH3, FIBGN, DDI2, APTT, FERR3 #### [facility] [address] [place] [address] Urea nitrogen [Mass/Vol] 35 mg/dL High 7-20 [facility] Comment on above: Performed By: #### H EMOG, CMP3M, CRP2, LDH3, FIBGN, DDI2, APTT, FERR3 #### [facility] [address] [place] [address] Anion gap [Moles/Vol] 9 Normal [facility] Comment on above: Performed By: #### H EMOG, CMP3M, CRP2, LDH3, FIBGN, DDI2, APTT, FERR3 #### [facility] [address] [place] [address] AST [Catalytic activity/Vol] 87 U/L High 15-46 [facility] Comment on above: Performed By: #### H EMOG, CMP3M, CRP2, LDH3, FIBGN, DDI2, APTT, FERR3 #### [facility] [address] [place] [address] Bilirubin [Mass/Vol] 0.6 mg/dL Normal 0.2-1.3 [facility] Comment on above: Performed By: #### H EMOG, CMP3M, CRP2, LDH3, FIBGN, DDI2, APTT, FERR3 #### [facility] [address] [place] [address] CO2 [Moles/Vol] 22 mmol/L Normal 22-30 [facility] Comment on above: Performed By: #### H EMOG, CMP3M, CRP2, LDH3, FIBGN, DDI2, APTT, FERR3 #### [facility] [address] [place] [address] Creatinine [Mass/Vol] 2.96 mg/dL High 0.52-1.25 [facility] Comment on above: Performed By: #### H EMOG, CMP3M, CRP2, LDH3, FIBGN, DDI2, APTT, FERR3 #### [facility] [address] [place] [address] GFR/1.73 sq M predicted among blacks MDRD (S/P/Bld) [Vol rate/Area] 25.9 mL/min/{1.73_m2} Abnormal >60 [facility] Comment on above: Performed By: #### H EMOG, CMP3M, CRP2, LDH3, FIBGN, DDI2, APTT, FERR3 #### [facility] [address] [place] [address] GFR/1.73 sq M predicted among non-blacks MDRD (S/P/Bld) [Vol rate/Area] 22.3 mL/min/{1.73_m2} Abnormal >60 [facility] Comment on above: Result Comment: KDIG [...] CRP2, LDH3, FIBGN, DDI2, APTT, FERR3 #### [facility] [address] [place] [address] Chloride [Moles/Vol] 101 mmol/L Normal 98-107 [facility] Comment on above: Performed By: #### H EMOG, CMP3M, CRP2, LDH3, FIBGN, DDI2, APTT, FERR3 #### [facility] [address] [place] [address] Potassium [Moles/Vol] 3.1 mmol/L Low 3.5-5.1 [facility] Comment on above: Performed By: #### H EMOG, CMP3M, CRP2, LDH3, FIBGN, DDI2, APTT, FERR3 #### [facility] [address] [place] [address] Sodium [Moles/Vol] 133 mmol/L Low 135-145 [facility] Comment on above: Performed By: #### H EMOG, CMP3M, CRP2, LDH3, FIBGN, DDI2, APTT, FERR3 #### [facility] [address] [place] [address] Albumin [Mass/Vol] 3.3 g/dL Low 3.5-5.0 [facility] Comment on above: Performed By: #### H EMOG, CMP3M, CRP2, LDH3, FIBGN, DDI2, APTT, FERR3 #### [facility] [address] [place] [address] Complete Urinalysison 2019 Amorphous Crystal Few Abnormal Negative [facility] Comment on above: Result Comment: . Performed By: #### C UA2 #### [facility] [address] [place] [address] Appearance (U) Clear Normal Clear [facility] Comment on above: Result Comment: . Performed By: #### C UA2 #### [facility] [address] [place] [address] Bacteria LM.HPF (Urine sed) [#/Area] Few Abnormal Negative [facility] Comment on above: Result Comment: . Performed By: #### C UA2 #### [facility] [address] [place] [address] Bilirubin,Urine Negative Normal Negative [facility] Comment on above: Result Comment: . Performed By: #### C UA2 #### [facility] [address] [place] [address] Cast, Granular 0 - 2 Abnormal Negative [facility] Comment on above: Result Comment: . Performed By: #### C UA2 #### [facility] [address] [place] [address] Cast, Hyaline 3 - 5 Abnormal Negative [facility] Comment on above: Result Comment: . Performed By: #### C UA2 #### [facility] [address] [place] [address] Color (U) Yellow Normal Lt. Yellow [facility] Comment on above: Result Comment: . Performed By: #### C UA2 #### [facility] [address] [place] [address] Glucose Ql (U) Normal Normal Normal (<70) [facility] Comment on above: Result Comment: . Performed By: #### C UA2 #### [facility] [address] [place] [address] Ketone,Urine Negative Normal Negative [facility] Comment on above: Result Comment: . Performed By: #### C UA2 #### [facility] [address] [place] [address] Leukocytes,Urine Negative Normal Negative [facility] Comment on above: Result Comment: . Performed By: #### C UA2 #### [facility] [address] [place] [address] Mucous Threads Few Normal Negative [facility] Comment on above: Result Comment: . Performed By: #### C UA2 #### [facility] [address] [place] [address] Nitrites,Urine Negative Normal Negative [facility] Comment on above: Result Comment: . Performed By: #### C UA2 #### [facility] [address] [place] [address] Non-Squamous Epithelial < 1 Abnormal Negative [facility] Comment on above: Result Comment: . Performed By: #### C UA2 #### [facility] [address] [place] [address] Occult Blood,Urine Negative Normal Negative [facility] Comment on above: Result Comment: . Performed By: #### C UA2 #### [facility] [address] [place] [address] pH (U) 5.5 Normal 5.0-8.0 [facility] Comment on above: Result Comment: . Performed By: #### C UA2 #### [facility] [address] [place] [address] Protein (U) [Mass/Vol] 20 mg/dL Abnormal Negative [facility] Comment on above: Result Comment: . Performed By: #### C UA2 #### [facility] [address] [place] [address] RBC LM.HPF (Urine sed) [#/Area] 0 - 2 Normal 0-2 [facility] Comment on above: Result Comment: . Performed By: #### C UA2 #### [facility] [address] [place] [address] Specific [place],Urine 1.015 Normal 1.005 - 1.030 [facility] Comment on above: Result Comment: . Performed By: #### C UA2 #### [facility] [address] [place] [address] Squamous Epithelial 0 - 2 Normal 3-5 [facility] Comment on above: Result Comment: . Performed By: #### C UA2 #### [facility] [address] [place] [address] Urobilinogen,Urine Normal Normal Normal (0-1) [facility] Comment on above: Result Comment: . Performed By: #### C UA2 #### [facility] [address] [place] [address] WBC LM.HPF (Urine sed) [#/Area] 0 - 2 Normal 0-5 [facility] Comment on above: Result Comment: . Performed By: #### C UA2 #### [facility] [address] [place] [address] Comprehensive Metabolic Pane rahul 10-28-2020 Albumin [Mass/Vol] 3.3 g/dL Low 3.5 - 5 g/dL [place], [place] ALP [Catalytic activity/Vol] 82 U/L 38 - 126 U/L [place] ALT [Catalytic activity/Vol] 60 U/L High 0 - 49 U/L [place] Comment on above: The ALT test is perf ormed by an updated assay method. Please note that the reference intervals have been changed and are now sex specific. Anion gap [Moles/Vol] 9 mmol/L [place], [place] AST [Catalytic activity/Vol] 87 U/L High 15 - 46 U/L [place] Bilirubin Ql (U) 0.6 mg/dL 0.2 - 1.3 mg/dL [place] Calcium [Mass/Vol] 8.6 mg/dL 8.4 - 10. 4 mg/dL [place] Chloride [Moles/Vol] 101 mmol/L 98 - 10 7 mmol/L [place] CO2 [Moles/Vol] 22 mmol/L 22 - 30 mmol/L [place] Creatinine [Mass/Vol] 2.96 mg/dL High 0.52 - 1.25 mg/dL [place] EGFR IF NonAfrican Macedonian 22.3 mL/min Abnormal >60 [place] Comment on above: KDIGO guidelines pro [...] (S/P/Bld) [Vol rate/Area] 25.9 mL/min/{1.73_m2} Abnormal >60 [place] Glucose [Mass/Vol] 122 mg/dL High 70 - 100 mg/dL [place] Interpretation and review of laboratory results Abnormal [place] Potassium [Moles/Vol] 3.1 mmol/L Low 3.5 - 5.1 mmol/L [place] Protein [Mass/Vol] 6.2 g/dL Low 6.3 - 8.2 g/dL [place] Sodium [Moles/Vol] 133 mmol/L Low 135 - 145 mmol/L [place] Urea nitrogen [Mass/Vol] 35 mg/dL High 7 - 20 mg/dL [place], [place] ED Provider Noteon 0 ED Provider Note Emergency [facility] Patient: Reggie León : 1965 Date of Evaluation: 10/28/2020 ED Supervising Physician: Otf Long, I independently examined and evaluated Reggie León. In brief, Reggie León is a 55 y.o. male that presents to the emergency department with increased shortness of breath from his senior care. Patient has a known COVID-19 infection. Patient [...] cough. CELINA spoke with the patient's senior care who states that he was on 4 [...] EKG: Sinus rhythm rate 85, QTC 486, WA interval 184, Q wave in lead 3, [...] Solutions Otf Long DO 10/28/20 1823 Normal [facility] ED Provider Note [facility] eMERGENCY dEPARTMENT eNCOUnter Pt Name: Reggie [...] file Gets together: Not on file Attends rastafarian service: Not on file Active member of [...] History Narrative ? Not on file SCREENINGS @FLOW([id number])@ PHYSICAL EXAM (5+ for level 4, 8+ [...] Department physician in the absence of a video conference specialist. Please see their accompanying note for interpretation. RADIOLOGY (Per EmergencyPhysician): Interpretation per the Radiologist below, if available at the time of this note: Xr Chest Portable Result Date: 10/28/2020 Patient Name: REGGIE LEÓN Diagnostic Radiology ACCESSION EXAM DATE/TIME PROCEDURE ORDERING PROVIDER [id number] 10/28/2020 15:05 EST CR Chest Portable BALAJI SILVER DANIEL M CPT code 47893 Reason For Exam (CR Chest Portable) dyspnea [...] (*) eGFR 25.9 (*) EGFR IF NonAfrican Macedonian 22.3 (*) Albumin,Serum 3.3 (*) Total Protein 6.2 (*) ALT 60 (*) AST 87 (*) All other components within normal limits Narrative: Test Performed by [facility], [address] [place] [address] CBC WITH AUTO DIFFERENTIAL - Abnormal; Notable for the following components: Hemoglobin 12.9 (*) Hematocrit 38.1 (*) Lymphocyte % 13.6 (*) Monocytes 17.8 (*) Eosinophils 0.8 (*) Absolute Lymph # 0.6 (*) All other components within normal limits Narrative: Test Performed by [facility], [address] [place] [address] POCT ARTERIAL - Abnormal; Notable for the following components: pCO2, Arterial 31.2 (*) pO2, Arterial 69.8 (*) HCO3, Arterial 18.3 (*) Base Excess, Arterial -5.8 (*) O2 Sat, Arterial 93.6 (*) TCO2, Arterial 19.3 (*) All other components within normal limits Narrative: Test Performed by [facility], [address] [address] BRAIN NATRIURETIC PEPTIDE Narrative: Test Performed by [facility], [address] [place] [address] TROPONIN Narrative: Test Performed by [facility], [facility] [address] [place] [address] LACTIC ACID, PLASMA Narrative: Test Performed by [facility], [address] [place], [place], [place] [address] URINALYSIS POCT ARTERIAL All other labs were [...] Emergency Medicine Provider NICKI Bustillo CNP 10/28/20 1753 Normal [facility] Hemogram (CBC) w/Auto Diffon 10-28-2020 Absolute Baso # 0.0 10*3/uL 0 - 0.2 10*3/uL [place] Absolute Neut # 3.1 10*3/uL 1.8 - 7 10*3/uL [place] Basophils/100 WBC (Bld) 0.7 % 0 - 2 % [place], [place] Eosinophils (Bld) [#/Vol] 0.0 10*3/uL 0 - 0.5 10*3/uL [place] Eosinophils/100 WBC (Bld) 0.8 % Low 1 - 6 % [place] Erythrocyte distribution width (RBC) [Ratio] 14.0 % 11.5 - 14.5 % [place] Granulocytes/100 WBC (Bld) 67.1 % 40 - 80 % [place] Hematocrit (Bld) [Volume fraction] 38.1 % Low 40 - 52 % [place] Hemoglobin (Bld) [Mass/Vol] 12.9 g/dL Low 13 - 18 g/dL [place] Interpretation and review of laboratory results Abnormal [place] Lymphocytes (Bld) [#/Vol] 0.6 10*3/uL Low 1 - 4.3 10*3/uL [place], [place] Lymphocytes/100 WBC (Bld) 13.6 % Low 20 - 40 % [place] MCH (RBC) [Entitic mass] 29.2 pg 26 - 34 pg [place] MCHC (RBC) [Mass/Vol] 33.9 % 32 - 36 % [place] MCV (RBC) [Entitic vol] 86.2 fL 80 - 98 fL [place] Monocytes (Bld) [#/Vol] 0.8 10*3/uL 0 - 0.8 10*3/uL [place], [place] Monocytes/100 WBC (Bld) 17.8 % High 2 - 10 % [place] Platelet mean volume (Bld) [Entitic vol] 7.4 fL 7.4 - 10.4 fL [place] Platelets (Bld) [#/Vol] 223 10*3/uL 140 - 440 10*3/uL [place] RBC (Bld) [#/Vol] 4.42 10*6/uL 4.4 - 5.9 10*6/uL [place] WBC (Bld) [#/Vol] 4.6 10*3/uL 3.6 - 10.7 10*3/uL [place] Test Performed by [facility], [address] [place] [address] [place] Hemogram w/ Autodiffon 10-28 Abs Baso Cnt 0.0 10*3/uL Normal 0.0-0.2 [facility] Comment on above: Performed By: #### H EMOG, CMP3M, CRP2, LDH3, FIBGN, DDI2, APTT, FERR3 #### [facility] [address] [place] [address] Abs Neutrophile Cnt 3.1 10*3/uL Normal 1.8-7.0 [facility] Comment on above: Performed By: #### H EMOG, CMP3M, CRP2, LDH3, FIBGN, DDI2, APTT, FERR3 #### [facility] [address] [place] [address] Basophils/100 WBC (Bld) 0.7 % Normal 0.0-2.0 [facility] Comment on above: Performed By: #### H EMOG, CMP3M, CRP2, LDH3, FIBGN, DDI2, APTT, FERR3 #### [facility] [address] [place] [address] Eosinophils (Bld) [#/Vol] 0.0 10*3/uL Normal 0.0-0.5 [facility] Comment on above: Performed By: #### H EMOG, CMP3M, CRP2, LDH3, FIBGN, DDI2, APTT, FERR3 #### [facility] [address] [place] [address] Eosinophils/100 WBC (Bld) 0.8 % Low 1.0-6.0 [facility] Comment on above: Performed By: #### H EMOG, CMP3M, CRP2, LDH3, FIBGN, DDI2, APTT, FERR3 #### [facility] [address] [place] [address] Erythrocyte distribution width (RBC) [Ratio] 14.0 % Normal 11.5-14.5 [facility] Comment on above: Performed By: #### H EMOG, CMP3M, CRP2, LDH3, FIBGN, DDI2, APTT, FERR3 #### [facility] [address] [place] [address] Granulocytes/100 WBC (Bld) 67.1 % Normal 40.0-80.0 [facility] Comment on above: Performed By: #### H EMOG, CMP3M, CRP2, LDH3, FIBGN, DDI2, APTT, FERR3 #### [facility] [address] [place] [address] Hematocrit (Bld) [Volume fraction] 38.1 % Low 40.0-52.0 [facility] Comment on above: Performed By: #### H EMOG, CMP3M, CRP2, LDH3, FIBGN, DDI2, APTT, FERR3 #### [facility] [address] [place] [address] Hemoglobin (Bld) [Mass/Vol] 12.9 g/dL Low 13.0-18.0 [facility] Comment on above: Performed By: #### H EMOG, CMP3M, CRP2, LDH3, FIBGN, DDI2, APTT, FERR3 #### [facility] [address] [place] [address] Lymphocytes (Bld) [#/Vol] 0.6 10*3/uL Low 1.0-4.3 [facility] Comment on above: Performed By: #### H EMOG, CMP3M, CRP2, LDH3, FIBGN, DDI2, APTT, FERR3 #### [facility] [address] [place] [address] Lymphocytes/100 WBC (Bld) 13.6 % Low 20.0-40.0 [facility] Comment on above: Performed By: #### H EMOG, CMP3M, CRP2, LDH3, FIBGN, DDI2, APTT, FERR3 #### [facility] [address] [place] [address] MCH (RBC) [Entitic mass] 29.2 pg Normal 26.0-34.0 [facility] Comment on above: Performed By: #### H EMOG, CMP3M, CRP2, LDH3, FIBGN, DDI2, APTT, FERR3 #### [facility] [address] [place] [address] MCHC (RBC) [Mass/Vol] 33.9 % Normal 32.0-36.0 [facility] Comment on above: Performed By: #### H EMOG, CMP3M, CRP2, LDH3, FIBGN, DDI2, APTT, FERR3 #### [facility] [address] [place] [address] MCV (RBC) [Entitic vol] 86.2 fL Normal 80.0-98.0 [facility] Comment on above: Performed By: #### H EMOG, CMP3M, CRP2, LDH3, FIBGN, DDI2, APTT, FERR3 #### [facility] [address] [place] [address] Monocytes (Bld) [#/Vol] 0.8 10*3/uL Normal 0.0-0.8 [facility] Comment on above: Performed By: #### H EMOG, CMP3M, CRP2, LDH3, FIBGN, DDI2, APTT, FERR3 #### [facility] [address] [place] [address] Monocytes/100 WBC (Bld) 17.8 % High 2.0-10.0 [facility] Comment on above: Performed By: #### H EMOG, CMP3M, CRP2, LDH3, FIBGN, DDI2, APTT, FERR3 #### [facility] [address] [place] [address] Platelet mean volume (Bld) [Entitic vol] 7.4 fL Normal 7.4-10.4 [facility] Comment on above: Performed By: #### H EMOG, CMP3M, CRP2, LDH3, FIBGN, DDI2, APTT, FERR3 #### [facility] [address] [place] [address] Platelets (Bld) [#/Vol] 223 10*3/uL Normal 140-440 [facility] Comment on above: Performed By: #### H EMOG, CMP3M, CRP2, LDH3, FIBGN, DDI2, APTT, FERR3 #### [facility] [address] [place] [address] RBC (Bld) [#/Vol] 4.42 10*6/uL Normal 4.40-5.90 [facility] Comment on above: Performed By: #### H EMOG, CMP3M, CRP2, LDH3, FIBGN, DDI2, APTT, FERR3 #### [facility] [address] [place] [address] WBC (Bld) [#/Vol] 4.6 10*3/uL Normal 3.6-10.7 [facility] Comment on above: Performed By: #### H EMOG, CMP3M, CRP2, LDH3, FIBGN, DDI2, APTT, FERR3 #### [facility] [address] [place] [address] Lactic Acidon 10-28-2020 Lactate [Moles/Vol] 1.6 mmol/L Normal 0.7-2.0 [facility] Comment on above: Performed By: #### H EMOG, CMP3M, CRP2, LDH3, FIBGN, DDI2, APTT, FERR3 #### [facility] [address] [place] [address] Lactic Acid, Plasmaon 2019 Lactate [Moles/Vol] 1.6 mmol/L 0.7 - 2 mmol/L [facility], [place] NT pro BNPon 10-28-2020 Natriuretic peptide B (Bld) [Mass/Vol] 47 pg/mL Normal 0-125 [facility] Comment on above: Performed By: #### H EMOG, CMP3M, CRP2, LDH3, FIBGN, DDI2, APTT, FERR3 #### [facility] [address] [place] [address] Otheron 10-28-2020 Test Performed by [facility], [address] [place], [place] [id number] [place] [address] Test Performed by [facility], [address] [place], [place] [address] [place] POCT Arterialon 10-28-2020 Base Excess, Arterial -5.8 mmol/L Low -3 - 3 mmol/L [place] HCO3, Arterial 18.3 mmol/L Low 21 - 25 mmol/L [place] Interpretation and review of laboratory results Abnormal [place] Oxygen saturation in Blood 93.6 % Low 95 - 100 % [place] pCO2, Arterial 31.2 mm[Hg] Low 35 - 45 mm[Hg] [place] pH, Arterial 7.376 [place] pO2, Arterial 69.8 mm[Hg] Low 80 - 100 mm[Hg] [place] Sodium [Moles/Vol] 21 mmol/L [place] Comment on above: Performed by CLIA ID : [id number] [place], [place] TCO2, Arterial 19.3 mmol/L Low 23 - 27 mmol/L [place] Test Performed by [facility], [address] [place], [place] [id number] [place] [address] Procalcitoninon 10-28-2020 Interpretation See Below Normal [facility] Comment on above: Result Comment: PCT <0.50 = Low risk of severe sepsis and/or septic shock. PCT >2.00 = High risk of severe sepsis and/or septic shock. Performed By: #### H EMOG, CMP3M, CRP2, LDH3, FIBGN, DDI2, APTT, FERR3 #### [facility] [address] [place] [address] Respiratory Panel, Molecular , with COVID-19 (Restricted: [...] management decisions. This assay was developed by [employer] and distributed under an Emergency Use Authorization (EUA) granted by the FDA for the qualitative detection of SARS-CoV-2 nucleic acid. Provider and patient fact sheets can be found at https://www.fda.gov/m edia/616705/download and https://www.fda.gov/m edia/094734/download. [place], [place] Test [facility], [address] [place] [address] [place] Troponin Ion 10-28-2020 Troponin I.cardiac [Mass/Vol] ng/mL Normal 0.000-0.034 [facility] Comment on above: Result Comment: . Performed By: #### H EMOG, CMP3M, CRP2, LDH3, FIBGN, DDI2, APTT, FERR3 #### [facility] [address] [place] [address] Troponin x1on 10-28-2020 Troponin I.cardiac [Mass/Vol] ng/mL 0 - 0.034 ng/mL [place] Comment on above: . Urinalysison 10-28-2020 AMORPHOUS CRYSTAL Few Abnormal Negative /[HPF] [place] Comment on above: . Appearance (U) Clear Clear NA [place] Comment on above: . Bacteria, UA Few Abnormal Negative /[HPF] [place] Comment on above: . Bilirubin Urine Negative Negative mg/dL [place] Comment on above: . Color (U) Yellow Lt. Yellow NA [place] Comment on above: . Glucose, Ur Normal Normal (<70) mg/dL [place] Comment on above: . Granular Casts, UA 0-2 Abnormal Negative /[LPF] [place] Comment on above: . Hyaline Casts, UA 3-5 Abnormal Negative /[LPF] [place] Comment on above: . Interpretation and review of laboratory results Abnormal [place] Ketones Ql (U) Negative Negative mg/dL [place] Comment on above: . LEUKOCYTES, UA Negative Negative Mary/uL [place] Comment on above: . Mucous Threads Few Negative /[LPF] [place] Comment on above: . Nitrite, Urine Negative Negative NA [place] Comment on above: . Non-Squamous Epithelial <1 Abnormal Nega tive /[HPF] [place] Comment on above: . Occult Blood,Urine Negative Negative mg/dL [place] Comment on above: . pH (U) 5.5 [pH] [place] Comment on above: . Protein (U) [Mass/Vol] 20 mg/dL Abnormal Negative Me [place] Comment on above: . RBC (U) [#/Vol] 0-2 0 - 2 /[HPF] [place] Comment on above: . Specific [place], Urine 1.015 M [place] Comment on above: . Squam Epithel, UA 0-2 3 - 5 /[HPF] [place] Comment on above: . Urobilinogen, Urine Normal Normal (0-1) mg/dL [place] Comment on above: . WBC, UA 0-2 0 - 5 /[HPF] [place] Comment on above: . [facility], [address], [place], [place] [address] [place] XR CHEST PORTABLEon 10-28-20 [place], [facility] Incoming Radiology Results From [facility] - 10/28/2020 3:21 PM EST Patient Name: REGGIE LEÓN Diagnostic Radiology ACCESSION EXAM DATE/TIME PROCEDURE ORDERING PROVIDER [id number] 10/28/2020 15:05 EST CR Chest Portable ADRIANNE, BALAJIANDREW Cirilo CPT code 59215 Reason For Exam (CR Chest Portable) dyspnea [...] JOHN Transcribed Date and Time: 10/28/2020 3:21 [place] Patient Name: REGGIE LEÓN Diagnostic Radiology ACCESSION EXAM DATE/TIME PROCEDURE ORDERING PROVIDER [id number] 10/28/2020 15:05 EST CR Chest Portable BALAJI SILVER DANIEL M CPT code 24978 Reason For Exam (CR Chest Portable) dyspnea [...] JOHN Transcribed Date and Time: 10/28/2020 3:21 [facility] with eGFRon 05-05-2020 Age - Reported 54 years Normal [facility] Comment on above: Performed By: #### 2 59353 #### [facility],[address] [place] [address] 00724 Anion gap [Moles/Vol] 11 mmol/L Normal 10 - 20 [facility] Comment on above: Performed By: #### 2 25620 #### [facility],[address] [place] [address] Calcium [Mass/Vol] 9.5 mg/dL Normal 8.6 - 10.2 [facility] Comment on above: Performed By: #### 2 17333 #### [facility],[address] [place] [address] 09022 CO2 [Moles/Vol] 24.7 mmol/L Normal 21.0 - 31.0 [facility] Comment on above: Performed By: #### 2 11129 #### [facility],[address] [place] [address] GFR/1.73 sq M predicted among non-blacks MDRD (S/P/Bld) [Vol rate/Area] 27 ML/MINUTE Low 60 - 999 [facility] Comment on above: Performed By: #### 2 61864 #### [facility],[address] [place] [address] 26603 GFR/1.73 sq M predicted among non-blacks MDRD (S/P/Bld) [Vol rate/Area] 33 ML/MINUTE Low 60 - 999 [facility] Comment on above: Result Comment: ACCO RDING TO THE NATIONAL KIDNEY DISEASE EDUCATION PROGRAM(NKDE), A NORMAL eGFR IS A VALUE GREATER THAN OR EQUAL TO 60 ML/MIN/1.73 SQ METERS. CHRONIC KIDNEY DISEASE: <60mL/MIN/1.73 SQ METERS KIDNEY FAILURE: <15mL/MIN/1.73 SQ METERS THIS TEST SHOULD ONLY BE USED FOR PATIENTS 18 YEARS OF AGE AND OLDER. Performed By: #### 2 28617 #### [address] [address] GFR/1.73 sq M predicted among non-blacks MDRD (S/P/Bld) [Vol rate/Area] Normal [facility] Comment on above: Result Comment: BASI C METABOLIC PANEL Performed By: #### 2 01506 #### [address] [address] Glucose [Mass/Vol] 113 mg/dL High 74 - 106 [facility] Comment on above: Performed By: #### 2 79216 #### [facility],[address] [place] [address] 62477 Potassium [Moles/Vol] 4.1 mmol/L Normal 3.5 - 5.1 [facility] Comment on above: Performed By: #### 2 43446 #### [facility],[address] [place] [address] 96971 Urea nitrogen [Mass/Vol] 24 mg/dL High 6 - 20 [facility] Comment on above: Performed By: #### 2 76925 #### [address] [address] CBC + DIFFon 05-05-2020 Basophils (Bld) [#/Vol] 0.10 x10EE3/UL Normal 0.00 - 0 .10 [facility] Comment on above: Performed By: #### 2 99815 #### [address] [address] Basophils/100 WBC (Bld) 0.9 % Normal 0.0 - 2.0 [facility] Comment on above: Performed By: #### 2 74215 #### [facility],[address] [place] [address] CBC + DIFF Normal [facility] Comment on above: Result Comment: CBC- COMPLETE BLOOD COUNT Performed By: #### 2 06783 #### [facility],[address] [place] [address] Eosinophils (Bld) [#/Vol] 0.40 x10EE3/UL Normal 0.00 - 0.50 [facility] Comment on above: Performed By: #### 2 94623 #### [facility],[address] [place] [address] Eosinophils/100 WBC (Bld) 5.4 % Normal 0.0 - 7.0 [facility] Comment on above: Performed By: #### 2 23867 #### [facility],[address] [place] [address] Erythrocyte distribution width (RBC) [Ratio] 12.7 % Normal 12.0 - 15.6 [facility] Comment on above: Performed By: #### 2 21833 #### [facility],[address] [place] [address] Hematocrit (Bld) [Volume fraction] 37.0 % Low 40.0 - 52.0 [facility] Comment on above: Performed By: #### 2 50765 #### [facility],[address] [place], [place] [phone] Hemoglobin (Bld) [Mass/Vol] 13.0 g/dL Normal 13.0 - 17.5 [facility] Comment on above: Performed By: #### 2 05933 #### [facility],[address] [place], [place] [address] Lymphocytes (Bld) [#/Vol] 1.50 x10EE3/UL Normal 0.80 - 2.80 [facility] Comment on above: Performed By: #### 2 64530 #### [facility],[address] [place] [address]779 Lymphocytes/100 WBC (Bld) 18.7 % Low 20.0 - 45. 0 [facility] Comment on above: Performed By: #### 2 57538 #### [facility],[address] [place] [address] 11391 MANUAL DIFF N/A Normal [facility] Comment on above: Performed By: #### 2 71813 #### [facility],[address] [place] [address] 10892 MCH (RBC) [Entitic mass] 31 pg Normal 27 - 33 [facility] Comment on above: Performed By: #### 2 15665 #### [facility],[address] [place] [address] 13310 MCHC (RBC) [Mass/Vol] 35 X10 3 Normal 32 - 36 [facility] Comment on above: Performed By: #### 2 25846 #### [facility],[address] [place] [address] 31453 MCV (RBC) [Entitic vol] 87 fL Normal 81 - 98 [facility] Comment on above: Performed By: #### 2 41748 #### [facility],[address] [place] [address] 95554 Monocytes (Bld) [#/Vol] 1.20 x10EE3/UL High 0.20 - 1 .00 [facility] Comment on above: Performed By: #### 2 61527 #### [facility],[address] [place] [address] 07146 MONOS % 14.8 % High 0.0 - 10.0 [facility] Comment on above: Performed By: #### 2 26763 #### [facility],[address] [place] [address] 42756 Morphology Crispin (Bld) [Interp] N/A Normal [facility] Comment on above: Performed By: #### 2 89330 #### [facility],[address] [place] [address] 53704 Neutrophils (Bld) [#/Vol] 4.80 x10EE3/UL Normal 1.50 - 7.10 [facility] Comment on above: Performed By: #### 2 26091 #### [facility],[address] [place] [address] 9[address]11 Neutrophils/100 WBC (Bld) 60.2 % Normal 46.0 - 76. 0 [facility] Comment on above: Performed By: #### 2 55874 #### [facility],[address] [place] [address] 13810 Platelet mean volume (Bld) [Entitic vol] 7.2 fL Normal 6.4 - 10.5 [facility] Comment on above: Result Comment: AUTO MATED DIFFERENTIAL Performed By: #### 2 98182 #### [facility],[address] [place] [address] 71769 Platelets (Bld) [#/Vol] 286 x10EE3/UL Normal 150 - 450 [facility] Comment on above: Performed By: #### 2 29998 #### [facility],[address] [place] [address] 92300 RBC (Bld) [#/Vol] 4.24 x 10EE6/UL Low 4.50 - 6.00 [facility] Comment on above: Performed By: #### 2 17507 #### [facility],[address] [place] [address] 33454 WBC (Bld) [#/Vol] 8.0 x 10EE3/UL Normal 4.5 - 10.8 [facility] Comment on above: Performed By: #### 2 65718 #### [facility],[address] [place] [address] 59905 CULTURE URINEon 05-05-2020 CULTURE URINE CULTURE URINE _URINE CULTURE_ M I C R O B I O L O G Y R E P O R T FINAL Antimicrobial Susceptibility and Organism Identification Report Specimen Number : [id number] Requested : 05/05/20 Specimen Source : URINE Collected : 05/05/20 03:00 Ar[employer] : REJITerra HUANG Received : 05/05/20 03:00 Requesting Physician : FLORECITA ------ Patient/Specimen Tests and Comments Specimen Comments FINAL REPORT: NO GROWTH AT 48 HOURS ------ Tech : Source : URINE ID # : [id number] FINAL Report Date : / / : Collected : 05/05/20 03:00 05/07/20.1244.KLS. 05/06/20.0705.JLN. 05/07/20.1245.KLS.COM PLETE Normal [facility] Comment on above: Performed By: #### 2 99855 #### [facility],[address] [place] [address]200 LITHIUMon 05-05-2020 [place] [Moles/Vol] 0.9 mmol/L Normal 0.6 - 1.2 [facility] Comment on above: Performed By: #### 2 89404 #### [facility],[address] [place] [address] 39634 RENAL FUNCTION PANELon 05-05 Albumin [Mass/Vol] 3.3 g/dL Low 3.4 - 4.8 [facility] Comment on above: Performed By: #### 2 15163 #### [facility],[address] [place] [address] 48687 B/C RATIO 10 ratio Normal 0 - 30 [facility] Comment on above: Performed By: #### 2 94365 #### [facility],[address] [place] [address] 52706 Chloride [Moles/Vol] 107 mmol/L Normal 98 - 107 [facility] Comment on above: Performed By: #### 2 37199 #### [facility],[address] [place] [address] 11165 Creatinine [Mass/Vol] 2.5 mg/dL High 0.7 - 1.3 [facility] Comment on above: Performed By: #### 2 53712 #### [facility],[address] [place] [address] 16371 Phosphate [Mass/Vol] 4.9 mg/dL Normal 2.7 - 4.9 [facility] Comment on above: Performed By: #### 2 38758 #### [facility],[address] [place] [address] 94144 RENAL FUNCTION PANEL Normal [facility] Comment on above: Result Comment: JESSICA L FUNCTION PANEL Performed By: #### 2 94978 #### [facility],[address] [place] [address] 50880 Sodium [Moles/Vol] 139 mmol/L Normal 136 - 145 [facility] Comment on above: Performed By: #### 2 19752 #### [facility],[address] [place] [address] 76518 URINALYSISon 05-05-2020 Bilirubin [Mass/Vol] Negative Normal NORMAL: NEGATIVE [facility] Comment on above: Performed By: #### 2 57528 #### [facility],[address] [place] [address] 81148 Blood Negative Normal NORMAL: NEGATIVE [facility] Comment on above: Performed By: #### 2 43878 #### [facility],[address] [place] [address] 89166 Clarity (U) clear Normal NORMAL: CLEAR [facility] Comment on above: Performed By: #### 2 81716 #### [facility],[address] [place] [address] 51073 Color (U) yellow Normal NORMAL: YELLOW [facility] Comment on above: Performed By: #### 2 89159 #### [facility],[address] [place] [address] 08176 Glucose [Mass/Vol] NORM Normal NORMAL: NORMAL [facility] Comment on above: Performed By: #### 2 87635 #### [facility],[address] [place] [address] 19532 Ketone Negative Normal NORMAL: NEGATIVE [facility] Comment on above: Performed By: #### 2 80698 #### [facility],[address] [place] [address] 73076 Microscopic NOT INDICATED Normal [facility] Comment on above: Performed By: #### 2 65535 #### [facility],[address] [place] [address] Nitrite Ql (U) Negative Normal NORMAL: NEGATIVE [facility] Comment on above: Performed By: #### 2 77609 #### [facility],[address] [place] [address] pH (Bld) 6 Normal NORMAL: 5.0-8.0 [facility] Comment on above: Performed By: #### 2 45529 #### [facility],[address] [place] [address] Protein (U) [Mass/Vol] Negative Normal JENN L: NEGATIVE [facility] Comment on above: Performed By: #### 2 73609 #### [facility],[address] [place] [address] Sp [place] 1.020 Normal NORMAL: 1.010-1.030 [facility] Comment on above: Performed By: #### 2 03626 #### [facility],[address] [place] [address] Specimen type Nom (Spec) UNSPECIFIED Normal [facility] Comment on above: Performed By: #### 2 63913 #### [facility],[address] [place], [place] [phone] Urobilinog NORM Normal NORMAL: NORMAL [facility] Comment on above: Performed By: #### 2 32942 #### [facility],[address] [place] [address] 80686 WBC (Bld) [#/Vol] Negative Normal NORMAL: NEGATIVE [facility] Comment on above: Performed By: #### 2 09248 #### [facility],[address] [place], [place] [id number] CBC + DIFFon 04-08-2020 Basophils (Bld) [#/Vol] 0.10 x10EE3/UL Normal 0.00 - 0 .10 [facility] Comment on above: Performed By: #### 2 80615 ####[facility],[address] [place], [place] [phone] Basophils/100 WBC (Bld) 1.2 % Normal 0.0 - 2.0 [facility] Comment on above: Performed By: #### 2 46336 ####[facility],[address] [place] [address] CBC + DIFF Normal [facility] Comment on above: Result Comment: CBC- COMPLETE BLOOD COUNT Performed By: #### 2 33638 ####[facility],[address] [place] [address] Eosinophils (Bld) [#/Vol] 0.40 x10EE3/UL Normal 0.00 - 0.50 [facility] Comment on above: Performed By: #### 2 68408 ####[facility],[address] [place], [place] [phone] Eosinophils/100 WBC (Bld) 4.3 % Normal 0.0 - 7.0 [facility] Comment on above: Performed By: #### 2 98610 ####[place] [address] Erythrocyte distribution width (RBC) [Ratio] 12.9 % Normal 12.0 - 15.6 [facility] Comment on above: Performed By: #### 2 38718 ####[facility],[address] [place] [address] Hematocrit (Bld) [Volume fraction] 38.7 % Low 40.0 - 52.0 [facility] Comment on above: Performed By: #### 2 45798 ####[facility],[address] [place] [address] Hemoglobin (Bld) [Mass/Vol] 13.4 g/dL Normal 13.0 - 17.5 [facility] Comment on above: Performed By: #### 2 59573 ####[facility] [place] [address] 87179 Lymphocytes (Bld) [#/Vol] 1.80 x10EE3/UL Normal 0.80 - 2.80 [facility] Comment on above: Performed By: #### 2 84898 ####[facility],[address] [place] [address] 57751 Lymphocytes/100 WBC (Bld) 21.9 % Normal 20.0 - 45. 0 [facility] Comment on above: Performed By: #### 2 59332 ####[facility],[address] [place] [address] 78932 MANUAL DIFF N/A Normal [facility] Comment on above: Performed By: #### 2 33576 ####[facility],[address] [place] [address] 80155 MCH (RBC) [Entitic mass] 31 pg Normal 27 - 33 [facility] Comment on above: Performed By: #### 2 73146 ####[facility],[address] [place] [address] 03767 MCHC (RBC) [Mass/Vol] 35 X10 3 Normal 32 - 36 [facility] Comment on above: Performed By: #### 2 78739 ####[facility],[address] [place] [address] 35533 MCV (RBC) [Entitic vol] 88 fL Normal 81 - 98 [facility] Comment on above: Performed By: #### 2 25702 ####[facility],[address] [place] [address] 49165 Monocytes (Bld) [#/Vol] 1.20 x10EE3/UL High 0.20 - 1 .00 [facility] Comment on above: Performed By: #### 2 11602 ####[facility],[address] [place] [address] 51047 MONOS % 14.1 % High 0.0 - 10.0 [facility] Comment on above: Performed By: #### 2 42459 ####[facility],[address] [place] [address] 36539 Morphology Crispin (Bld) [Interp] N/A Normal [facility] Comment on above: Performed By: #### 2 33859 ####[facility],[address] [place] [address] 55633 Neutrophils (Bld) [#/Vol] 4.90 x10EE3/UL Normal 1.50 - 7.10 [facility] Comment on above: Performed By: #### 2 24541 ####[facility],[address] [place] [address] 90139 Neutrophils/100 WBC (Bld) 58.5 % Normal 46.0 - 76. 0 [facility] Comment on above: Performed By: #### 2 93002 ####[facility],[address] [place] [address] 55272 Platelet mean volume (Bld) [Entitic vol] 7.4 fL Normal 6.4 - 10.5 [facility] Comment on above: Result Comment: AUTO MATED DIFFERENTIAL Performed By: #### 2 13569 ####[facility],[address] [place] [address] 42052 Platelets (Bld) [#/Vol] 268 x10EE3/UL Normal 150 - 450 [facility] Comment on above: Performed By: #### 2 80119 ####[facility],[address] [place] [address] 19308 RBC (Bld) [#/Vol] 4.41 x 10EE6/UL Low 4.50 - 6.00 [facility] Comment on above: Performed By: #### 2 44043 ####[facility],[address] [place] [address] 75002 WBC (Bld) [#/Vol] 8.3 x 10EE3/UL Normal 4.5 - 10.8 [facility] Comment on above: Performed By: #### 2 24686 ####[facility],[address] [place] [address] 38713 CULTURE URINEon 04-08-2020 CULTURE URINE CULTURE URINE _URINE CULTURE_ M I C R O B I O L O G Y R E P O R T FINAL Antimicrobial Susceptibility and Organism Identification Report Specimen Number : [id number] Requested : 04/08/20 Specimen Source : CLEAN CATCH URINE Collected : 04/08/20 06:28 [employer] : MEME HUANG Received : 04/08/20 06:28 Requesting Physician : FLORECITA ------ Patient/Specimen Tests and Comments Specimen Comments FINAL REPORT: NO GROWTH AT 48 HOURS ------ Tech : Source : CLEAN CATCH URINE ID # : [id number] FINAL Report Date : / / : Collected : 04/08/20 06:28 04/10/20.1059.BKO. 04/09/20.1214.KLS. 04/10/20.1059.[employer] PLETE Normal [facility] Comment on above: Performed By: #### 2 43809 #### [facility],[address] [place] [address] 29786 HEPATIC FUNCTION PANELon Albumin [Mass/Vol] 3.4 g/dL Normal 3.4 - 4.8 [facility] Comment on above: Performed By: #### 2 55220 ####[facility],[address] [place] [address] 03349 Performed By: #### 2 14440 ####[facility],[address] [place] [address] 83217 ALK PHOS 65 U/L Normal 38 - 126 [facility] Comment on above: Performed By: #### 2 67417 ####[facility],[address] [place] [address] 03225 ALT/SGPT 16 U/L Normal 10 - 40 [facility] Comment on above: Performed By: #### 2 48169 ####[facility],[address] [place] [address] 22411 AST/SGOT 10 U/L Low 13 - 39 [facility] Comment on above: Performed By: #### 2 76573 ####[facility],[address] [place] [address] 68792 Bilirubin [Mass/Vol] 0.4 mg/dL Normal 0.0 - 1.5 [facility] Comment on above: Performed By: #### 2 63071 ####[facility],[address] [place] [address] 85495 Bilirubin.direct [Mass/Vol] 0.1 mg/dL Normal 0.0 - 0.1 [facility] Comment on above: Performed By: #### 2 64573 ####[facility],[address] [place] [address] HEPATIC FUNCTION PANEL Normal [facility] Comment on above: Result Comment: HEPA TIC FUNCTION PROFILE Performed By: #### 2 79041 ####[facility],[address] [place] [address] 01940 Protein [Mass/Vol] 5.4 g/dL Low 6.4 - 8.3 [facility] Comment on above: Performed By: #### 2 77637 ####[facility],[address] [place] [address] 95074 LITHIUMon 04-08-2020 [place] [Moles/Vol] 0.7 mmol/L Normal 0.6 - 1.2 [facility] Comment on above: Performed By: #### 2 13264 ####[facility],[address] [place], [place] [id number] RENAL FUNCTION PANELon 04-08 B/C RATIO 11 ratio Normal 0 - 30 [facility] Comment on above: Performed By: #### 2 64900 ####[facility],[address] [place] [address] 29184 Calcium [Mass/Vol] 9.5 mg/dL Normal 8.6 - 10.2 [facility] Comment on above: Performed By: #### 2 80216 ####[facility],[address] [place] [address] 39503 Chloride [Moles/Vol] 105 mmol/L Normal 98 - 107 [facility] Comment on above: Performed By: #### 2 23839 ####[facility],[address] [place] [address] 27550 CO2 [Moles/Vol] 25.4 mmol/L Normal 21.0 - 31.0 [facility] Comment on above: Performed By: #### 2 74653 ####[facility],[address] [place] [address] 43403 Creatinine [Mass/Vol] 2.1 mg/dL High 0.7 - 1.3 [facility] Comment on above: Performed By: #### 2 78851 ####[facility],[address] [place] [address] 59526 Glucose [Mass/Vol] 105 mg/dL Normal 74 - 106 [facility] Comment on above: Performed By: #### 2 16865 ####[facility],[address] [place] [address] 76212 Phosphate [Mass/Vol] 5.2 mg/dL High 2.7 - 4.9 [facility] Comment on above: Performed By: #### 2 58905 ####[facility],[address] [place] [address] 76182 Potassium [Moles/Vol] 3.8 mmol/L Normal 3.5 - 5.1 [facility] Comment on above: Performed By: #### 2 35530 ####[facility],[address] [place] [address] 70784 RENAL FUNCTION PANEL Normal [facility] Comment on above: Result Comment: JESSICA L FUNCTION PANEL Performed By: #### 2 39500 ####[facility],[address] [place] [address] 42951 Sodium [Moles/Vol] 139 mmol/L Normal 136 - 145 [facility] Comment on above: Performed By: #### 2 35291 ####[facility],[address] [place] [address] 27426 Urea nitrogen [Mass/Vol] 23 mg/dL High 6 - 20 [facility] Comment on above: Performed By: #### 2 45884 ####[facility],[address] [place] [address] 72057 URINALYSISon 04-08-2020 Bilirubin [Mass/Vol] Negative Normal NORMAL: NEGATIVE [facility] Comment on above: Performed By: #### 2 60445 #### [facility],[address] [place] [address] 39802 Blood Negative Normal NORMAL: NEGATIVE [facility] Comment on above: Performed By: #### 2 14454 #### [facility],[address] [place] [address] 69642 Clarity (U) clear Normal NORMAL: CLEAR [facility] Comment on above: Performed By: #### 2 42651 #### [facility],[address] [place], [place] [id number] Color (U) p.yel Normal NORMAL: YELLOW [facility] Comment on above: Performed By: #### 2 73323 #### [facility],[address] [place] [address] 22221 Glucose [Mass/Vol] NORM Normal NORMAL: NORMAL [facility] Comment on above: Performed By: #### 2 40970 #### [facility],[address] [place] [address] 74103 Ketone Negative Normal NORMAL: NEGATIVE [facility] Comment on above: Performed By: #### 2 71837 #### [facility],[address] [place] [address] 92853 Microscopic NOT INDICATED Normal [facility] Comment on above: Performed By: #### 2 14345 #### [facility],[address] [place] [address] 23086 Nitrite Ql (U) Negative Normal NORMAL: NEGATIVE [facility] Comment on above: Performed By: #### 2 40881 #### [facility],[address] [place] [address] 69810 pH (Bld) 6 Normal NORMAL: 5.0-8.0 [facility] Comment on above: Performed By: #### 2 64751 #### [facility],[address] [place] [address] 74870 Protein (U) [Mass/Vol] Negative Normal JENN L: NEGATIVE [facility] Comment on above: Performed By: #### 2 09133 #### [facility],[address] [place] [address] 69483 Sp [place] 1.020 Normal NORMAL: 1.010-1.030 [facility] Comment on above: Performed By: #### 2 79980 #### [facility],[address] [place] [address] 60876 Specimen type Nom (Spec) Clean catch Normal [facility] Comment on above: Performed By: #### 2 01632 #### [facility],[address] [place] [address] 52123 Urobilinog NORM Normal NORMAL: NORMAL [facility] Comment on above: Performed By: #### 2 70783 #### [facility],[address] [place] [address] 91138 WBC (Bld) [#/Vol] Negative Normal NORMAL: NEGATIVE [facility] Comment on above: Performed By: #### 2 34950 #### [facility],[address] [place] [address] 20225 URINE CREATININE AND PROTEIN RATIOon 04-08-2020 CREATININE UR 146.3 mg/dl Normal [facility] Comment on above: Performed By: #### 2 13309 ####[facility],[address] [place] [address] 09568 PC RATIO 0.06 mg/dL Normal 0.00 - 10.00 [facility] Comment on above: Performed By: #### 2 69797 ####[facility],[address] [place] [address] 30057 Protein (U) [Mass/Vol] 9.00 mg/dL Normal 0.00 - 10.00 [facility] Comment on above: Performed By: #### 2 08065 ####[facility],[address] [place] [address] 36310 HGB A1C [CCL]on 03-18-2020 HbA1c (Bld) [Mass fraction] 117 mg/dL Normal [facility] Comment on above: Result Comment: eAG: (Estimated average glucose) is a calculated value from HgbA1c and is phlebotomy services representative of the average blood glucose level in the last 2-3 month period. [facility] [address] [place] [address] Dre Gilliland III, M.D. [id number] Performed By: #### 2 78193 ####[place] [id number] HbA1c (Bld) [Mass fraction] 5.7 % High 4.3-5.6 [facility] Comment on above: Result Comment: [place] Diabetes Association guidelines indicate that patients with HgbA1c in the range 5.7-6.4% are at increased risk for development of diabetes, and intervention by lifestyle modification may be beneficial. HgbA1c greater or equal to 6.5% is considered diagnostic of diabetes. Performed By: #### 2 81852 ####[facility],[address] [place] [address] 80393 Hemoglobin A1con 03-18-2020 HbA1c (Bld) [Mass fraction] 5.7 % High 4.3-5.6 [facility] Comment on above: Performed By: #### H BA1C #### [facility] Routine Lab [address] [place] [address] HbA1c (Bld) [Mass fraction] 117 mg/dL Normal [facility] Comment on above: Performed By: #### H BA1C #### [facility] [address] [place] [address] LIPID PROFILEon 03-17-2020 Cholesterol [Mass/Vol] 133 mg/dL Normal 0 - 200 [facility] Comment on above: Performed By: #### 2 54606 ####[facility],[address] [place] [address] 86862 Cholesterol in HDL [Mass/Vol] 29 mg/dL Low 40 - 60 [facility] Comment on above: Performed By: #### 2 16090 ####[facility],[address] [place] [address] 17245 Cholesterol in LDL [Mass/Vol] 59 mg/dL Normal 0 - 129 [facility] Comment on above: Performed By: #### 2 59311 ####[facility],[address] [place] [address] 42106 Cholesterol.total/Choleste rol in HDL [Mass ratio] 4.6 {ratio} Normal 0.0 - 5.0 [facility] Comment on above: Performed By: #### 2 66694 ####[facility],[address] [place] [address] 43058 Lipid 1996 panel Normal [facility] Comment on above: Result Comment: LIPI D PROFILE Performed By: #### 2 09926 ####[facility],[address] [place] [address] 29830 Triglyceride [Mass/Vol] 224 mg/dL High 0 - 150 [facility] Comment on above: Performed By: #### 2 96724 ####[facility],[address] [place] [address] 63365 TSHon 03-17-2020 TSH Qn 0.99 uIU/ml Normal 0.34 - 5.60 [facility] Comment on above: Performed By: #### 2 76426 ####[facility],[address] [place] [address] 84377 URINE CREATININE AND PROTEIN RATIOon 03-11-2020 CREATININE UR 65.8 mg/dl Normal [facility] Comment on above: Performed By: #### 2 52158 ####[facility],[address] [place] [address] 17196 PC RATIO 0.06 mg/dL Normal 0.00 - 10.00 [facility] Comment on above: Performed By: #### 2 09079 ####[facility],[address] [place] [address] 58970 Protein (U) [Mass/Vol] mg/dL Normal 0.00 - 10.00 [facility] Comment on above: Performed By: #### 2 19822 ####[facility],[address] [place] [address] 18005 CBC + DIFFon 03-10-2020 Basophils (Bld) [#/Vol] 0.10 x10EE3/UL Normal 0.00 - 0 .10 [facility] Comment on above: Performed By: #### 2 43508 #### [facility],[address] [place] [address] 80138 Basophils/100 WBC (Bld) 1.3 % Normal 0.0 - 2.0 [facility] Comment on above: Performed By: #### 2 12238 #### [facility],[address] [place] [address] 27289 CBC + DIFF Normal [facility] Comment on above: Result Comment: CBC- COMPLETE BLOOD COUNT Performed By: #### 2 29897 #### [facility],[address] [place] [address] 12517 Eosinophils (Bld) [#/Vol] 0.40 x10EE3/UL Normal 0.00 - 0.50 [facility] Comment on above: Performed By: #### 2 46139 #### [facility],[address] [place] [address] 90239 Eosinophils/100 WBC (Bld) 5.7 % Normal 0.0 - 7.0 [facility] Comment on above: Performed By: #### 2 59447 #### [facility],[address] [place] [address] 03866 Erythrocyte distribution width (RBC) [Ratio] 13.3 % Normal 12.0 - 15.6 [facility] Comment on above: Performed By: #### 2 51297 #### [facility],[address] [place] [address] 49528 Hematocrit (Bld) [Volume fraction] 40.4 % Normal 40.0 - 52.0 [facility] Comment on above: Performed By: #### 2 22409 #### [facility],[address] [place] [address] 77157 Hemoglobin (Bld) [Mass/Vol] 13.8 g/dL Normal 13.0 - 17.5 [facility] Comment on above: Performed By: #### 2 16561 #### [facility],[address] [place] [address] 12528 Lymphocytes (Bld) [#/Vol] 1.30 x10EE3/UL Normal 0.80 - 2.80 [facility] Comment on above: Performed By: #### 2 76531 #### [facility],[address] [place] [address] 41326 Lymphocytes/100 WBC (Bld) 20.1 % Normal 20.0 - 45. 0 [facility] Comment on above: Performed By: #### 2 77886 #### [facility],[address] [place] [address] 18318 MANUAL DIFF N/A Normal [facility] Comment on above: Performed By: #### 2 60928 #### [facility],[address] [place] [address] 35443 MCH (RBC) [Entitic mass] 30 pg Normal 27 - 33 [facility] Comment on above: Performed By: #### 2 69372 #### [facility],[address] [place] [address] 29823 MCHC (RBC) [Mass/Vol] 34 X10 3 Normal 32 - 36 [facility] Comment on above: Performed By: #### 2 84757 #### [facility],[address] [place] [address] 91069 MCV (RBC) [Entitic vol] 88 fL Normal 81 - 98 [facility] Comment on above: Performed By: #### 2 60959 #### [facility],[address] [place] [address] 43039 Monocytes (Bld) [#/Vol] 0.90 x10EE3/UL Normal 0.20 - 1 .00 [facility] Comment on above: Performed By: #### 2 69321 #### [facility],[address] [place] [address] 81388 MONOS % 13.7 % High 0.0 - 10.0 [facility] Comment on above: Performed By: #### 2 53412 #### [place] [address] Morphology Crispin (Bld) [Interp] N/A Normal [facility] Comment on above: Performed By: #### 2 79189 #### [address] [address] Neutrophils (Bld) [#/Vol] 3.80 x10EE3/UL Normal 1.50 - 7.10 [facility] Comment on above: Performed By: #### 2 73616 #### [place] [address] Neutrophils/100 WBC (Bld) 59.2 % Normal 46.0 - 76. 0 [facility] Comment on above: Performed By: #### 2 11919 #### [place] [address] Platelet mean volume (Bld) [Entitic vol] 7.8 fL Normal 6.4 - 10.5 [facility] Comment on above: Result Comment: AUTO MATED DIFFERENTIAL Performed By: #### 2 86330 #### [place] [address] Platelets (Bld) [#/Vol] 291 x10EE3/UL Normal 150 - 450 [facility] Comment on above: Performed By: #### 2 84457 #### [address],[place] [address] RBC (Bld) [#/Vol] 4.57 x 10EE6/UL Normal 4.50 - 6.00 [facility] Comment on above: Performed By: #### 2 27645 #### [facility],[address] [place] [address] 27869 WBC (Bld) [#/Vol] 6.4 x 10EE3/UL Normal 4.5 - 10.8 [facility] Comment on above: Performed By: #### 2 29073 #### [facility],[address] [place] [address] 03547 LITHIUMon 03-10-2020 [place] [Moles/Vol] 0.8 mmol/L Normal 0.6 - 1.2 [facility] Comment on above: Performed By: #### 2 35071 #### [facility],[address] [place], [place] [id number] RENAL FUNCTION PANEL WITH eG FRon 03-10-2020 Age - Reported 54 years Normal [facility] Comment on above: Performed By: #### 2 58647 ####[facility],[address] [place] [address] 82651 Albumin [Mass/Vol] 3.5 g/dL Normal 3.4 - 4.8 [facility] Comment on above: Performed By: #### 2 81698 ####[facility],[address] [place] [address] 98942 B/C RATIO 8 ratio Normal 0 - 30 [facility] Comment on above: Performed By: #### 2 79927 ####[facility],[address] [place] [address] 10906 Calcium [Mass/Vol] 9.4 mg/dL Normal 8.6 - 10.2 [facility] Comment on above: Performed By: #### 2 87300 ####[facility],[address] [place] [address] 64251 Chloride [Moles/Vol] 106 mmol/L Normal 98 - 107 [facility] Comment on above: Performed By: #### 2 27017 ####[facility],[address] [place] [address] 88896 CO2 [Moles/Vol] 26.1 mmol/L Normal 21.0 - 31.0 [facility] Comment on above: Performed By: #### 2 67805 ####[address] [address] Creatinine [Mass/Vol] 2.5 mg/dL High 0.7 - 1.3 [facility] Comment on above: Performed By: #### 2 15786 ####[facility],[address] [place] [address] 84187 GFR/1.73 sq M predicted among non-blacks MDRD (S/P/Bld) [Vol rate/Area] 33 ML/MINUTE Low 60 - 999 [facility] Comment on above: Result Comment: ACCO RDING TO THE NATIONAL KIDNEY DISEASE EDUCATION PROGRAM(NKDE), A NORMAL eGFR IS A VALUE GREATER THAN OR EQUAL TO 60 ML/MIN/1.73 SQ METERS. CHRONIC KIDNEY DISEASE: <60mL/MIN/1.73 SQ METERS KIDNEY FAILURE: <15mL/MIN/1.73 SQ METERS THIS TEST SHOULD ONLY BE USED FOR PATIENTS 18 YEARS OF AGE AND OLDER. Performed By: #### 2 73482 ####[facility],[address] [place] [address] 31488 GFR/1.73 sq M predicted among non-blacks MDRD (S/P/Bld) [Vol rate/Area] 27 ML/MINUTE Low 60 - 999 [facility] Comment on above: Performed By: #### 2 44184 ####[address] [address] Glucose [Mass/Vol] 114 mg/dL High 74 - 106 [facility] Comment on above: Performed By: #### 2 66682 ####[facility],[address] [place] [address] 06926 Phosphate [Mass/Vol] 4.6 mg/dL Normal 2.7 - 4.9 [facility] Comment on above: Performed By: #### 2 83200 ####[facility],[address] [place] [address] 22422 Potassium [Moles/Vol] 3.9 mmol/L Normal 3.5 - 5.1 [facility] Comment on above: Performed By: #### 2 39524 ####[facility],[address] [place] [address] 46029 RENAL FUNCTION PANEL WITH eGFR Normal [facility] Comment on above: Result Comment: JESSICA L FUNCTION PANEL Performed By: #### 2 21945 ####[facility],[address] [place] [address] 67564 Sodium [Moles/Vol] 139 mmol/L Normal 136 - 145 [facility] Comment on above: Performed By: #### 2 64769 ####[facility],[address] [place] [address] 33254 Urea nitrogen [Mass/Vol] 21 mg/dL High 6 - 20 [facility] Comment on above: Performed By: #### 2 56339 ####[facility],[address] [place] [address] 13722 CBC + DIFFon 02-04-2020 Basophils (Bld) [#/Vol] 0.10 x10EE3/UL Normal 0.00 - 0 .10 [facility] Comment on above: Performed By: #### 2 45291 #### [facility],[address] [place] [address] 94313 Basophils/100 WBC (Bld) 1.3 % Normal 0.0 - 2.0 [facility] Comment on above: Performed By: #### 2 14031 #### [facility],[address] [place] [address] 45869 CBC + DIFF Normal [facility] Comment on above: Result Comment: CBC- COMPLETE BLOOD COUNT Performed By: #### 2 90234 #### [facility],[address] [place] [address] Eosinophils (Bld) [#/Vol] 0.40 x10EE3/UL Normal 0.00 - 0.50 [facility] Comment on above: Performed By: #### 2 87213 #### [facility],[address] [place], [place] [id number] Eosinophils/100 WBC (Bld) 5.6 % Normal 0.0 - 7.0 [facility] Comment on above: Performed By: #### 2 45601 #### [place] [address] Erythrocyte distribution width (RBC) [Ratio] 13.2 % Normal 12.0 - 15.6 [facility] Comment on above: Performed By: #### 2 22975 #### [place] [address] Hematocrit (Bld) [Volume fraction] 38.7 % Low 40.0 - 52.0 [facility] Comment on above: Performed By: #### 2 96343 #### [place] [address] Hemoglobin (Bld) [Mass/Vol] 13.2 g/dL Normal 13.0 - 17.5 [facility] Comment on above: Performed By: #### 2 73125 #### [place] [phone] Lymphocytes (Bld) [#/Vol] 1.40 x10EE3/UL Normal 0.80 - 2.80 [facility] Comment on above: Performed By: #### 2 98598 #### [place] [phone] Lymphocytes/100 WBC (Bld) 18.1 % Low 20.0 - 45. 0 [facility] Comment on above: Performed By: #### 2 85146 #### [facility],[address] [place] [address] MANUAL DIFF N/A Normal [facility] Comment on above: Performed By: #### 2 74378 #### [facility],[address] [place] [address] MCH (RBC) [Entitic mass] 30 pg Normal 27 - 33 [facility] Comment on above: Performed By: #### 2 65527 #### [facility],[address] [place] [address] MCHC (RBC) [Mass/Vol] 34 X10 3 Normal 32 - 36 [facility] Comment on above: Performed By: #### 2 63822 #### [facility],[address] [place] [address] MCV (RBC) [Entitic vol] 88 fL Normal 81 - 98 [facility] Comment on above: Performed By: #### 2 27759 #### [facility],[address] [place], [place] [id number] Monocytes (Bld) [#/Vol] 1.10 x10EE3/UL High 0.20 - 1 .00 [facility] Comment on above: Performed By: #### 2 45495 #### [place] [phone] MONOS % 13.6 % High 0.0 - 10.0 [facility] Comment on above: Performed By: #### 2 00228 #### [facility],[address] [place], [place] [id number] Morphology [place] (Bld) [Interp] N/A Normal [facility] [facility] Comment on above: Performed By: #### 2 50085 #### [place] [id number] Neutrophils (Bld) [#/Vol] 4.80 x10EE3/UL Normal 1.50 - 7.10 [facility] Comment on above: Performed By: #### 2 84401 #### [facility],[address] [place], [place] [id number] Neutrophils/100 WBC (Bld) 61.4 % Normal 46.0 - 76. 0 [facility] Comment on above: Performed By: #### 2 95098 #### [facility],[address] [place] [address] Platelet mean volume (Bld) [Entitic vol] 7.7 fL Normal 6.4 - 10.5 [facility] Comment on above: Result Comment: AUTO MATED DIFFERENTIAL Performed By: #### 2 10844 #### [address] [address] Platelets (Bld) [#/Vol] 298 x10EE3/UL Normal 150 - 450 [facility] Comment on above: Performed By: #### 2 54184 #### [address] [address] RBC (Bld) [#/Vol] 4.40 x 10EE6/UL Low 4.50 - 6.00 [facility] Comment on above: Performed By: #### 2 48691 #### [address] [address] WBC (Bld) [#/Vol] 7.8 x 10EE3/UL Normal 4.5 - 10.8 [facility] Comment on above: Performed By: #### 2 90385 #### [address] [address] CULTURE URINEon 02-04-2020 CULTURE URINE CULTURE URINE _URINE CULTURE_ M I C R O B I O L O G Y R E P O R T FINAL Antimicrobial Susceptibility and Organism Identification Report Specimen Number : [id number] Requested : 02/04/20 Specimen Source : URINE Collected : 02/04/20 02:50 [place] of [place] : MEME HUANG Received : 02/04/20 02:50 Requesting Physician : FLORECITA ------ Patient/Specimen Tests and Comments Specimen Comments FINAL REPORT: NO GROWTH AT 48 HOURS ------ Tech : Source : URINE ID # : [id number] FINAL Report Date : / / : Collected : 02/04/20 02:50 02/06/20.9.ARAVINDS. 02/05/20.0910.SAIGE. 02/06/20.1208.KLS.Games2Win PAIGE Johnson [facility] Comment on above: Performed By: #### 2 42286 #### [facility],[address] [place] [address] RENAL FUNCTION PANEL WITH eG FRon 02-04-2020 Age - Reported 54 years Normal [facility] Comment on above: Performed By: #### 2 30828 #### [facility],[address] [place] [address]15 Albumin [Mass/Vol] 3.5 g/dL Normal 3.4 - 4.8 [facility] Comment on above: Performed By: #### 2 46500 #### [facility],[address] [place] [address]322 B/C RATIO 9 ratio Normal 0 - 30 [facility] Comment on above: Performed By: #### 2 54574 #### [facility],[address] [place] [address] 31821 Calcium [Mass/Vol] 9.4 mg/dL Normal 8.6 - 10.2 [facility] Comment on above: Performed By: #### 2 59064 #### [facility],[address] [place] [address] 33119 Chloride [Moles/Vol] 107 mmol/L Normal 98 - 107 [facility] Comment on above: Performed By: #### 2 54932 #### [facility],[address] [place] [address] 02400 CO2 [Moles/Vol] 25.6 mmol/L Normal 21.0 - 31.0 [facility] Comment on above: Performed By: #### 2 61588 #### [facility],[address] [place] [address] 65949 Creatinine [Mass/Vol] 2.4 mg/dL High 0.7 - 1.3 [facility] Comment on above: Performed By: #### 2 34395 #### [facility],[address] [place] [address] 22679 GFR/1.73 sq M predicted among non-blacks MDRD (S/P/Bld) [Vol rate/Area] 28 ML/MINUTE Low 60 - 999 [facility] Comment on above: Performed By: #### 2 89057 #### [address] [address] GFR/1.73 sq M predicted among non-blacks MDRD (S/P/Bld) [Vol rate/Area] 34 ML/MINUTE Low 60 - 999 [facility] Comment on above: Result Comment: ACCO RDING TO THE NATIONAL KIDNEY DISEASE EDUCATION PROGRAM(NKDE), A NORMAL eGFR IS A VALUE GREATER THAN OR EQUAL TO 60 ML/MIN/1.73 SQ METERS. CHRONIC KIDNEY DISEASE: <60mL/MIN/1.73 SQ METERS KIDNEY FAILURE: <15mL/MIN/1.73 SQ METERS THIS TEST SHOULD ONLY BE USED FOR PATIENTS 18 YEARS OF AGE AND OLDER. Performed By: #### 2 31532 #### [address] [address] Glucose [Mass/Vol] 114 mg/dL High 74 - 106 [facility] Comment on above: Performed By: #### 2 74945 #### [address] [address] Phosphate [Mass/Vol] 4.5 mg/dL Normal 2.7 - 4.9 [facility] Comment on above: Performed By: #### 2 63369 #### [facility],[address] [place] [address] Potassium [Moles/Vol] 3.8 mmol/L Normal 3.5 - 5.1 [facility] Comment on above: Performed By: #### 2 03539 #### [facility],[address] [place] [address] RENAL FUNCTION PANEL WITH eGFR Normal [facility] Comment on above: Result Comment: JESSICA L FUNCTION PANEL Performed By: #### 2 43271 #### [facility],[address] [place] [address]23 Sodium [Moles/Vol] 139 mmol/L Normal 136 - 145 [facility] Comment on above: Performed By: #### 2 07369 #### [facility],[address] [place] [address] 07210 Urea nitrogen [Mass/Vol] 22 mg/dL High 6 - [facility] Comment on above: Performed By: #### 2 00513 #### [facility],[address] [place] [address]76 URINALYSISon 02-04-2020 Amorphous NONE Normal [facility] Comment on above: Performed By: #### 2 25873 #### [facility],[address] [place] [address] 30405 Bacteria LM.HPF (Urine sed) [#/Area] NONE Normal [facility] Comment on above: Performed By: #### 2 50781 #### [facility],[address] [place] [address] 21958 Bilirubin [Mass/Vol] Negative Normal NORMAL: NEGATIVE [facility] Comment on above: Performed By: #### 2 96354 #### [facility],[address] [place] [address] 81252 Blood Negative Normal NORMAL: NEGATIVE [facility] Comment on above: Performed By: #### 2 37694 #### [facility],[address] [place] [address] 42753 Casts LM.LPF (Urine sed) [#/Area] NONE Normal [facility] Comment on above: Performed By: #### 2 34988 #### [facility],[address] [place] [address] 0[address] Clarity (U) clear Normal NORMAL: CLEAR [facility] Comment on above: Performed By: #### 2 53978 #### [facility],[address] [place] [address] 33982 Color (U) yellow Normal NORMAL: YELLOW [facility] Comment on above: Performed By: #### 2 83681 #### [facility],[address] [place] [address] 63587 Crystals LM Nom (Urine sed) NONE Normal [facility] Comment on above: Performed By: #### 2 30082 #### [facility],[address] [place] [address] 65574 Epi Cells NONE Normal [facility] Comment on above: Performed By: #### 2 94160 #### [facility],[address] [place] [address] 16509 Glucose [Mass/Vol] NORM Normal NORMAL: NORMAL [facility] Comment on above: Performed By: #### 2 97090 #### [facility],[address] [place] [address] 88758 Ketone Negative Normal NORMAL: NEGATIVE [facility] Comment on above: Performed By: #### 2 50847 #### [facility],[address] [place] [address]687 Microscopic SEE BELOW Normal [facility] Comment on above: Result Comment: MICR OSCOPIC Performed By: #### 2 18548 #### [facility],[address] [place] [address] Mucous NONE Normal [facility] Comment on above: Performed By: #### 2 43976 #### [facility],[address] [place] [address] 09402 Nitrite Ql (U) Negative Normal NORMAL: NEGATIVE [facility] Comment on above: Performed By: #### 2 27192 #### [facility],[address] [place] [address] 17935 pH (Bld) 6 Normal NORMAL: 5.0-8.0 [facility] Comment on above: Performed By: #### 2 84464 #### [facility],[address] [place] [address] 50451 Protein (U) [Mass/Vol] Negative Normal JENN L: NEGATIVE [facility] Comment on above: Performed By: #### 2 34508 #### [facility],[address] [place] [address] 41044 Rbc NONE Normal 0-3/hpf [facility] Comment on above: Performed By: #### 2 22270 #### [facility],[address] [place] [address] Sp [place] 1.015 Normal NORMAL: 1.010-1.030 [facility] Comment on above: Performed By: #### 2 55406 #### [facility],[address] [place] [address] Specimen type Nom (Spec) Clean catch Normal [facility] Comment on above: Performed By: #### 2 10453 #### [facility],[address] [place] [address] Urobilinog NORM Normal NORMAL: NORMAL [facility] Comment on above: Performed By: #### 2 78063 #### [facility],[address] [place] [address] Wbc 1-5 Normal 0-5/hpf [facility] Comment on above: Performed By: #### 2 53557 #### [facility],[address] [place], [place] [id number] WBC (Bld) [#/Vol] 25 Abnormal NORMAL: NEGATIVE [facility] Comment on above: Performed By: #### 2 64559 #### [facility],[address] [place], [place] [id number] Yeast LM Ql (Urine sed) NONE Normal [facility] Comment on above: Performed By: #### 2 18550 #### [facility],[address] [place], [place] [id number] URINE CREATININE AND PROTEIN RATIOon 02-04-2020 CREATININE UR 143.6 mg/dl Normal [facility] Comment on above: Performed By: #### 2 94060 #### [facility],[address] [place], [place] [id number] PC RATIO 0.05 mg/dL Normal 0.00 - 10.00 [facility] Comment on above: Performed By: #### 2 45628 #### [facility],[address] [place] [address]136 Protein (U) [Mass/Vol] 7.00 mg/dL Normal 0.00 - 10.00 [facility] Comment on above: Performed By: #### 2 36791 #### [facility],[address] [place] [address] 44873 ALBUMIN PLASMAon 01-07-2020 Albumin [Mass/Vol] 3.7 g/dL Normal 3.4 - 4.8 [facility] Comment on above: Performed By: #### 2 96346 #### [facility],[address] [place] [address] 73481 BMP with eGFRon 01-07-2020 Age - Reported 54 years Normal [facility] Comment on above: Performed By: #### 2 24756 #### [facility],[address] [place] [address] 03151 Anion gap [Moles/Vol] 13 mmol/L Normal 10 - 20 [facility] Comment on above: Performed By: #### 2 80224 #### [facility],[address] [place] [address] 05065 Calcium [Mass/Vol] 9.3 mg/dL Normal 8.6 - 10.2 [facility] Comment on above: Performed By: #### 2 52968 #### [facility],[address] [place] [address] 56402 Chloride [Moles/Vol] 108 mmol/L High 98 - 107 [facility] Comment on above: Performed By: #### 2 92010 #### [facility],[address] [place] [address] 77746 CO2 [Moles/Vol] 26.1 mmol/L Normal 21.0 - 31.0 [facility] Comment on above: Performed By: #### 2 79055 #### [facility],[address] [place] [address] 63278 Creatinine [Mass/Vol] 2.0 mg/dL High 0.7 - 1.3 [facility] Comment on above: Performed By: #### 2 35732 #### [facility],[address] [place] [address] 01145 GFR/1.73 sq M predicted among non-blacks MDRD (S/P/Bld) [Vol rate/Area] Normal [facility] Comment on above: Result Comment: BASI C METABOLIC PANEL Performed By: #### 2 49174 #### [facility],[address] [place] [address] 69342 GFR/1.73 sq M predicted among non-blacks MDRD (S/P/Bld) [Vol rate/Area] 42 ML/MINUTE Low 60 - 999 [facility] Comment on above: Result Comment: ACCO RDING TO THE NATIONAL KIDNEY DISEASE EDUCATION PROGRAM(NKDE), A NORMAL eGFR IS A VALUE GREATER THAN OR EQUAL TO 60 ML/MIN/1.73 SQ METERS. CHRONIC KIDNEY DISEASE: <60mL/MIN/1.73 SQ METERS KIDNEY FAILURE: <15mL/MIN/1.73 SQ METERS THIS TEST SHOULD ONLY BE USED FOR PATIENTS 18 YEARS OF AGE AND OLDER. Performed By: #### 2 03579 #### [facility],[address] [place] [address] 97674 GFR/1.73 sq M predicted among non-blacks MDRD (S/P/Bld) [Vol rate/Area] 35 ML/MINUTE Low 60 - 999 [facility] Comment on above: Performed By: #### 2 84120 #### [facility],[address] [place] [address] 76324 Glucose [Mass/Vol] 99 mg/dL Normal 74 - 106 [facility] Comment on above: Performed By: #### 2 71031 #### [facility],[address] [place] [address] Potassium [Moles/Vol] 3.8 mmol/L Normal 3.5 - 5.1 [facility] Comment on above: Performed By: #### 2 65132 #### [facility],[address] [place] [address] Sodium [Moles/Vol] 143 mmol/L Normal 136 - 145 [facility] Comment on above: Performed By: #### 2 09467 #### [facility],[address] [place] [address] Urea nitrogen [Mass/Vol] 22 mg/dL High 6 - 20 [facility] Comment on above: Performed By: #### 2 48954 #### [facility],[address] [place] [address] CBC + DIFFon 01-07-2020 Basophils (Bld) [#/Vol] 0.10 x10EE3/UL Normal 0.00 - 0 .10 [facility] Comment on above: Performed By: #### 2 88021 #### [facility],[address] [place], [place] [id number] Basophils/100 WBC (Bld) 1.0 % Normal 0.0 - 2.0 [facility] Comment on above: Performed By: #### 2 80717 #### [facility],[address] [place] [address] CBC + DIFF Normal [facility] Comment on above: Result Comment: CBC- COMPLETE BLOOD COUNT Performed By: #### 2 89922 #### [facility],[address] [place] [address] Eosinophils (Bld) [#/Vol] 0.30 x10EE3/UL Normal 0.00 - 0.50 [facility] Comment on above: Performed By: #### 2 41541 #### [facility],[address] [place] [address] 18418 Eosinophils/100 WBC (Bld) 3.3 % Normal 0.0 - 7.0 [facility] Comment on above: Performed By: #### 2 49649 #### [facility],[address],[place] [address] Erythrocyte distribution width (RBC) [Ratio] 13.1 % Normal 12.0 - 15.6 [facility] Comment on above: Performed By: #### 2 73046 #### [facility],[address] [place], [place] [phone] Hematocrit (Bld) [Volume fraction] 39.0 % Low 40.0 - 52.0 [facility] Comment on above: Performed By: #### 2 36571 #### [facility],[address] [place], [place] [id number] Hemoglobin (Bld) [Mass/Vol] 13.4 g/dL Normal 13.0 - 17.5 [facility] Comment on above: Performed By: #### 2 89680 #### [facility],[address] [place] [address] 17848 Lymphocytes (Bld) [#/Vol] 1.90 x10EE3/UL Normal 0.80 - 2.80 [facility] Comment on above: Performed By: #### 2 00047 #### [facility],[address] [place] [address] 02989 Lymphocytes/100 WBC (Bld) 20.6 % Normal 20.0 - 45. 0 [facility] Comment on above: Performed By: #### 2 78319 #### [facility],[address] [place] [address] 34207 MANUAL DIFF N/A Normal [facility] Comment on above: Performed By: #### 2 86965 #### [facility],[address] [place] [address] 46779 MCH (RBC) [Entitic mass] 30 pg Normal 27 - 33 [facility] Comment on above: Performed By: #### 2 02765 #### [facility],[address] [place] [address] 11554 MCHC (RBC) [Mass/Vol] 34 X10 3 Normal 32 - 36 [facility] Comment on above: Performed By: #### 2 06429 #### [facility],[address] [place] [address] 34204 MCV (RBC) [Entitic vol] 88 fL Normal 81 - 98 [facility] Comment on above: Performed By: #### 2 18652 #### [facility],[address] [place] [address] 17992 Monocytes (Bld) [#/Vol] 0.90 x10EE3/UL Normal 0.20 - 1 .00 [facility] Comment on above: Performed By: #### 2 59766 #### [address] [address] MONOS % 10.0 % Normal 0.0 - 10.0 [facility] Comment on above: Performed By: #### 2 77431 #### [address] [address] Morphology [place] (Bld) [Interp] N/A Normal [facility] Comment on above: Performed By: #### 2 19461 #### [address] [address] Neutrophils (Bld) [#/Vol] 5.90 x10EE3/UL Normal 1.50 - 7.10 [facility] Comment on above: Performed By: #### 2 43166 #### [address] [address] Neutrophils/100 WBC (Bld) 65.1 % Normal 46.0 - 76. 0 [facility] Comment on above: Performed By: #### 2 15034 #### [address] [address] Platelet mean volume (Bld) [Entitic vol] 7.7 fL Normal 6.4 - 10.5 [facility] Comment on above: Result Comment: AUTO MATED DIFFERENTIAL Performed By: #### 2 81511 #### [facility],[address] [place] [address] 67639 Platelets (Bld) [#/Vol] 260 x10EE3/UL Normal 150 - 450 [facility] Comment on above: Performed By: #### 2 12216 #### [facility],[address] [place] [address] RBC (Bld) [#/Vol] 4.41 x 10EE6/UL Low 4.50 - 6.00 [facility] Comment on above: Performed By: #### 2 38053 #### [facility],[address] [place] [address] 22320 WBC (Bld) [#/Vol] 9.1 x 10EE3/UL Normal 4.5 - 10.8 [facility] Comment on above: Performed By: #### 2 11148 #### [facility],[address] [place], [place] [id number] CULTURE URINEon 01-07-2020 CULTURE URINE CULTURE URINE _URINE CULTURE_ M I C R O B I O L O G Y R E P O R T FINAL Antimicrobial Susceptibility and Organism Identification Report Specimen Number : [id number] Requested : 01/07/20 Specimen Source : CLEAN CATCH URINE Collected : 01/07/20 02:30 [place] of [place] : MEME HUANG Received : 01/07/20 02:30 Requesting Physician : FLORECITA ------ Patient/Specimen Tests and Comments Specimen Comments FINAL REPORT: NO GROWTH AT 48 HOURS ------ Tech : Source : CLEAN CATCH URINE ID # : [id number] FINAL Report Date : / / : Collected : 01/07/20 02:30 01/09/20.1027.BKO. 01/08/20.1302.KLS. 01/09/20.1027.InvesdorO.Games2Win PLETE 01/09/20.1027.InvesdorO.to [facility] via fax Normal [facility] Comment on above: Performed By: #### 2 04500 #### [facility],[address] [place] [address] 80577 LITHIUMon 01-07-2020 [place] [Moles/Vol] 0.6 mmol/L Normal 0.6 - 1.2 [facility] Comment on above: Performed By: #### 2 59002 #### [facility],[address] [place] [address] 40576 URINALYSISon 01-07-2020 Bilirubin [Mass/Vol] Negative Normal NORMAL: NEGATIVE [facility] Comment on above: Performed By: #### 2 58093 #### [facility],[address] [place] [address] 81638 Blood Negative Normal NORMAL: NEGATIVE [facility] Comment on above: Performed By: #### 2 81892 #### [facility],[address] [place] [address] 04916 Clarity (U) clear Normal NORMAL: CLEAR [facility] Comment on above: Performed By: #### 2 53077 #### [facility],[address] [place] [address] 50216 Color (U) p.yel Normal NORMAL: YELLOW [facility] Comment on above: Performed By: #### 2 10197 #### [facility],[address] [place], [place] [id number] Glucose [Mass/Vol] NORM Normal NORMAL: NORMAL [facility] Comment on above: Performed By: #### 2 29186 #### [facility],[address] [place] [address] 92497 Ketone Negative Normal NORMAL: NEGATIVE [facility] Comment on above: Performed By: #### 2 24155 #### [facility],[address] [place] [address] 07133 Microscopic NOT INDICATED Normal [facility] Comment on above: Performed By: #### 2 65247 #### [facility],[address] [place] [address] 46322 Nitrite Ql (U) Negative Normal NORMAL: NEGATIVE [facility] Comment on above: Performed By: #### 2 45585 #### [facility],[address] [place] [address] 36617 pH (Bld) 6.5 Normal NORMAL: 5.0-8.0 [facility] Comment on above: Performed By: #### 2 06877 #### [facility],[address] [place] [address] 10064 Protein (U) [Mass/Vol] Negative Normal JENN L: NEGATIVE [facility] Comment on above: Performed By: #### 2 48327 #### [facility],[address] [place] [address] Sp [place] 1.010 Normal NORMAL: 1.010-1.030 [facility] Comment on above: Performed By: #### 2 32224 #### [facility],[address] [place] [address] Specimen type Nom (Spec) Clean catch Normal [facility] [facility] Comment on above: Performed By: #### 2 20897 #### [facility],[address] [place] [address] Urobilinog NORM Normal NORMAL: NORMAL [facility] Comment on above: Performed By: #### 2 85059 #### [facility],[address] [place] [address] WBC (Bld) [#/Vol] Negative Normal NORMAL: NEGATIVE [facility] Comment on above: Performed By: #### 2 56152 #### [facility],[address] [place], [place] [id number] URINE CREATININE AND PROTEIN RATIOon 01-07-2020 CREATININE UR 75.6 mg/dl Normal [facility] Comment on above: Performed By: #### 2 81907 #### [facility],[address] [place], [place] [id number] PC RATIO 0.07 mg/dL Normal 0.00 - 10.00 [facility] Comment on above: Performed By: #### 2 33796 #### [facility],[address] [place] [address] 05908 Protein (U) [Mass/Vol] mg/dL Normal 0.00 - 10.00 [facility] Comment on above: Performed By: #### 2 32532 #### [facility],[address] [place], [place] [id number] CBC + DIFFon 12-10-2019 Basophils (Bld) [#/Vol] 0.10 x10EE3/UL Normal 0.00 - 0 .10 [facility] Comment on above: Performed By: #### 2 19572 #### [facility],[address] [place] [address] 84403 Basophils/100 WBC (Bld) 0.7 % Normal 0.0 - 2.0 [facility] Comment on above: Performed By: #### 2 57331 #### [facility],[address] [place] [address] 87200 CBC + DIFF Normal [facility] Comment on above: Result Comment: CBC- COMPLETE BLOOD COUNT Performed By: #### 2 91489 #### [facility],[address] [place] [address] 42079 Eosinophils (Bld) [#/Vol] 0.30 x10EE3/UL Normal 0.00 - 0.50 [facility] Comment on above: Performed By: #### 2 45897 #### [facility],[address] [place] [address] 47169 Eosinophils/100 WBC (Bld) 3.2 % Normal 0.0 - 7.0 [facility] Comment on above: Performed By: #### 2 70052 #### [facility],[address] [place] [address] 74787 Erythrocyte distribution width (RBC) [Ratio] 12.7 % Normal 12.0 - 15.6 [facility] Comment on above: Performed By: #### 2 58476 #### [facility],[address] [place] [address] 12779 Hematocrit (Bld) [Volume fraction] 38.7 % Low 40.0 - 52.0 [facility] Comment on above: Performed By: #### 2 79146 #### [facility],[address] [place] [address] 38482 Hemoglobin (Bld) [Mass/Vol] 13.4 g/dL Normal 13.0 - 17.5 [facility] Comment on above: Performed By: #### 2 07712 #### [facility],[address] [place] [address] 29262 Lymphocytes (Bld) [#/Vol] 2.10 x10EE3/UL Normal 0.80 - 2.80 [facility] Comment on above: Performed By: #### 2 11321 #### [facility],[address] [place], [place] [address] Lymphocytes/100 WBC (Bld) 21.3 % Normal 20.0 - 45. 0 [facility] Comment on above: Performed By: #### 2 17310 #### [facility],[address] [place] [address] MANUAL DIFF N/A Normal [facility] Comment on above: Performed By: #### 2 60765 #### [place] [id number] MCH (RBC) [Entitic mass] 31 pg Normal 27 - 33 [facility] Comment on above: Performed By: #### 2 36579 #### [address] [address] MCHC (RBC) [Mass/Vol] 35 X10 3 Normal 32 - 36 [facility] Comment on above: Performed By: #### 2 19342 #### [facility],[address] [place], [place] [phone] MCV (RBC) [Entitic vol] 89 fL Normal 81 - 98 [facility] Comment on above: Performed By: #### 2 37810 #### [address] [address] Monocytes (Bld) [#/Vol] 1.00 x10EE3/UL Normal 0.20 - 1 .00 [facility] Comment on above: Performed By: #### 2 92031 #### [facility],[address] [place] [address] 05793 MONOS % 10.5 % High 0.0 - 10.0 [facility] Comment on above: Performed By: #### 2 24183 #### [facility],[address] [place] [address] 94028 Morphology Crispin (Bld) [Interp] N/A Normal [facility] Comment on above: Performed By: #### 2 09123 #### [address] [address] Neutrophils (Bld) [#/Vol] 6.30 x10EE3/UL Normal 1.50 - 7.10 [facility] Comment on above: Performed By: #### 2 49205 #### [address] [address] Neutrophils/100 WBC (Bld) 64.3 % Normal 46.0 - 76. 0 [facility] Comment on above: Performed By: #### 2 26780 #### [address] [address] Platelet mean volume (Bld) [Entitic vol] 7.4 fL Normal 6.4 - 10.5 [facility] Comment on above: Result Comment: AUTO MATED DIFFERENTIAL Performed By: #### 2 35572 #### [address] [address] Platelets (Bld) [#/Vol] 254 x10EE3/UL Normal 150 - 450 [facility] Comment on above: Performed By: #### 2 29628 #### [address] [address] RBC (Bld) [#/Vol] 4.34 x 10EE6/UL Low 4.50 - 6.00 [facility] Comment on above: Performed By: #### 2 92771 #### [address] [address] WBC (Bld) [#/Vol] 9.8 x 10EE3/UL Normal 4.5 - 10.8 [facility] Comment on above: Performed By: #### 2 36260 #### [facility],[address] [place] [address] 97083 CULTURE URINEon 12-10-2019 CULTURE URINE CULTURE URINE _URINE CULTURE_ M I C R O B I O L O G Y R E P O R T FINAL Antimicrobial Susceptibility and Organism Identification Report Specimen Number : [id number] Requested : 12/09/19 Specimen Source : CLEAN CATCH URINE Collected : 12/09/19 23:45 Ar[place] of Isolation : MEME HUANG Received : 12/09/19 23:45 Requesting Physician : FLORECITA ------ Patient/Specimen Tests and Comments Specimen Comments FINAL REPORT: NO GROWTH AT 48 HOURS ------ Tech : Source : CLEAN CATCH URINE ID # : [id number] FINAL Report Date : / / : Collected : 12/09/19 23:45 12/12/19.InvesdorO. 12/11/19.BKO. 12/12/19.[employer] PLETE 12/12/19.InvesdorO.to [facility] via fax Normal [facility] Comment on above: Performed By: #### 2 60300 #### [facility],[address] [place], [place] [id number] LITHIUMon 12-10-2019 [place] [Moles/Vol] 0.6 mmol/L Normal 0.6 - 1.2 [facility] Comment on above: Performed By: #### 2 27239 #### [facility],[address] [place] [address] 51695 RENAL FUNCTION PANEL WITH eG FRon 12-10-2019 Age - Reported 54 years Normal [facility] Comment on above: Performed By: #### 2 13452 #### [facility],[address] [place] [address] 03495 Albumin [Mass/Vol] 3.6 g/dL Normal 3.4 - 4.8 [facility] Comment on above: Performed By: #### 2 42020 #### [facility],[address] [place] [address] 90764 B/C RATIO 12 ratio Normal 0 - 30 [facility] Comment on above: Performed By: #### 2 68411 #### [facility],[address] [place] [address] 68899 Calcium [Mass/Vol] 9.4 mg/dL Normal 8.6 - 10.2 [facility] Comment on above: Performed By: #### 2 33839 #### [facility],[address] [place] [address] 02510 Chloride [Moles/Vol] 105 mmol/L Normal 98 - 107 [facility] Comment on above: Performed By: #### 2 36189 #### [facility],[address] [place] [address] 80802 CO2 [Moles/Vol] 24.4 mmol/L Normal 21.0 - 31.0 [facility] Comment on above: Performed By: #### 2 47367 #### [facility],[address] [place] [address] 58457 Creatinine [Mass/Vol] 1.9 mg/dL High 0.7 - 1.3 [facility] Comment on above: Performed By: #### 2 72468 #### [facility],[address] [place] [address] 98791 GFR/1.73 sq M predicted among non-blacks MDRD (S/P/Bld) [Vol rate/Area] 37 ML/MINUTE Low 60 - 999 [facility] Comment on above: Performed By: #### 2 35649 #### [facility],[address] [place] [address] 73494 GFR/1.73 sq M predicted among non-blacks MDRD (S/P/Bld) [Vol rate/Area] 45 ML/MINUTE Low 60 - 999 [facility] Comment on above: Result Comment: ACCO RDING TO THE NATIONAL KIDNEY DISEASE EDUCATION PROGRAM(NKDE), A NORMAL eGFR IS A VALUE GREATER THAN OR EQUAL TO 60 ML/MIN/1.73 SQ METERS. CHRONIC KIDNEY DISEASE: <60mL/MIN/1.73 SQ METERS KIDNEY FAILURE: <15mL/MIN/1.73 SQ METERS THIS TEST SHOULD ONLY BE USED FOR PATIENTS 18 YEARS OF AGE AND OLDER. Performed By: #### 2 47068 #### [facility],[address] [place] [address] 52563 Glucose [Mass/Vol] 106 mg/dL Normal 74 - 106 [facility] Comment on above: Performed By: #### 2 04283 #### [facility],[address] [place] [address] 75556 Phosphate [Mass/Vol] 5.0 mg/dL High 2.7 - 4.9 [facility] Comment on above: Performed By: #### 2 35739 #### [facility],[address] [place] [address] 93420 Potassium [Moles/Vol] 3.4 mmol/L Low 3.5 - 5.1 [facility] Comment on above: Performed By: #### 2 66951 #### [facility],[address] [place] [address] 71650 RENAL FUNCTION PANEL WITH eGFR Normal [facility] Comment on above: Result Comment: JESSICA L FUNCTION PANEL Performed By: #### 2 81904 #### [facility],[address] [place] [address] 23456 Sodium [Moles/Vol] 139 mmol/L Normal 136 - 145 [facility] Comment on above: Performed By: #### 2 27180 #### [facility],[address] [place] [address] 68823 Urea nitrogen [Mass/Vol] 23 mg/dL High 6 - 20 [facility] Comment on above: Performed By: #### 2 59325 #### [facility],[address] [place] [address] 21397 URINALYSISon 12-10-2019 Bilirubin [Mass/Vol] Negative Normal NORMAL: NEGATIVE [facility] Comment on above: Performed By: #### 2 92873 #### [facility],[address] [place] [address] 40334 Blood Negative Normal NORMAL: NEGATIVE [facility] Comment on above: Performed By: #### 2 44923 #### [facility],[address] [place] [address] 04444 Clarity (U) clear Normal NORMAL: CLEAR [facility] Comment on above: Performed By: #### 2 94659 #### [facility],[address] [place] [address] 76033 Color (U) p.yel Normal NORMAL: YELLOW [facility] Comment on above: Performed By: #### 2 70989 #### [facility],[address] [place] [address] 07710 Glucose [Mass/Vol] NORM Normal NORMAL: NORMAL [facility] Comment on above: Performed By: #### 2 33151 #### [facility],[address] [place], [place] [id number] Ketone Negative Normal NORMAL: NEGATIVE [facility] Comment on above: Performed By: #### 2 72686 #### [facility],[address] [place] [address] Microscopic NOT INDICATED Normal [facility] Comment on above: Performed By: #### 2 11026 #### [facility],[address] [place] [address] 60514 Nitrite Ql (U) Negative Normal NORMAL: NEGATIVE [facility] Comment on above: Performed By: #### 2 52902 #### [facility],[address] [place] [address] 71881 pH (Bld) 6 Normal NORMAL: 5.0-8.0 [facility] Comment on above: Performed By: #### 2 55777 #### [facility],[address] [place] [address] 24937 Protein (U) [Mass/Vol] Negative Normal JENN L: NEGATIVE [facility] Comment on above: Performed By: #### 2 57359 #### [facility],[address] [place] [address] 98967 Sp [place] 1.015 Normal NORMAL: 1.010-1.030 [facility] Comment on above: Performed By: #### 2 83122 #### [facility],[address] [place] [address] 22277 Specimen type Nom (Spec) Clean catch Normal [facility] Comment on above: Performed By: #### 2 15333 #### [facility],[address] [place] [address] 88389 Urobilinog NORM Normal NORMAL: NORMAL [facility] Comment on above: Performed By: #### 2 13341 #### [facility],[address] [place] [address] 60584 WBC (Bld) [#/Vol] Negative Normal NORMAL: NEGATIVE [facility] Comment on above: Performed By: #### 2 01325 #### [facility],[address] [place] [address] 66260 URINE CREATININE AND PROTEIN RATIOon 12-10-2019 CREATININE UR 97.1 mg/dl Normal [facility] Comment on above: Performed By: #### 2 72508 #### [facility],[address] [place] [address] 13188 PC RATIO 0.07 mg/dL Normal 0.00 - 10.00 [facility] Comment on above: Performed By: #### 2 32663 #### [facility],[address] [place] [address] 54638 Protein (U) [Mass/Vol] 7.00 mg/dL Normal 0.00 - 10.00 [facility] Comment on above: Performed By: #### 2 38895 #### [facility],[address] [place] [address] 31886 BMP with eGFRon 11-05-2019 Age - Reported 54 years Normal [facility] Comment on above: Performed By: #### 2 93674 #### [facility],[address] [place] [address] 73352 Anion gap [Moles/Vol] 12 mmol/L Normal 10 - 20 [facility] Comment on above: Performed By: #### 2 82401 #### [address] [address] Chloride [Moles/Vol] 105 mmol/L Normal 98 - 107 [facility] Comment on above: Performed By: #### 2 44186 #### [facility],[address] [place] [address] 24787 CO2 [Moles/Vol] 26.8 mmol/L Normal 21.0 - 31.0 [facility] Comment on above: Performed By: #### 2 88453 #### [address] [address] GFR/1.73 sq M predicted among non-blacks MDRD (S/P/Bld) [Vol rate/Area] 38 ML/MINUTE Low 60 - 999 [facility] Comment on above: Result Comment: ACCO RDING TO THE NATIONAL KIDNEY DISEASE EDUCATION PROGRAM(NKDE), A NORMAL eGFR IS A VALUE GREATER THAN OR EQUAL TO 60 ML/MIN/1.73 SQ METERS. CHRONIC KIDNEY DISEASE: <60mL/MIN/1.73 SQ METERS KIDNEY FAILURE: <15mL/MIN/1.73 SQ METERS THIS TEST SHOULD ONLY BE USED FOR PATIENTS 18 YEARS OF AGE AND OLDER. Performed By: #### 2 45638 #### [address] [address] GFR/1.73 sq M predicted among non-blacks MDRD (S/P/Bld) [Vol rate/Area] 31 ML/MINUTE Low 60 - 999 [facility] Comment on above: Performed By: #### 2 07776 #### [address] [address] GFR/1.73 sq M predicted among non-blacks MDRD (S/P/Bld) [Vol rate/Area] Normal [facility] Comment on above: Result Comment: BASI C METABOLIC PANEL Performed By: #### 2 52280 #### [place] [address],[place] [address] Potassium [Moles/Vol] 3.4 mmol/L Low 3.5 - 5.1 [facility] Comment on above: Performed By: #### 2 68938 #### [facility],[address] [place] [address] Sodium [Moles/Vol] 140 mmol/L Normal 136 - 145 [facility] Comment on above: Performed By: #### 2 64830 #### [facility],[address] [place], [place] [id number] CBC + DIFFon 11-05-2019 Basophils (Bld) [#/Vol] 0.10 x10EE3/UL Normal 0.00 - 0 .10 [facility] Comment on above: Performed By: #### 2 57358 #### [facility],[address] [place] [address] 40961 Basophils/100 WBC (Bld) 0.9 % Normal 0.0 - 2.0 [facility] Comment on above: Performed By: #### 2 42082 #### [facility],[address] [place] [address] CBC + DIFF Normal [facility] Comment on above: Result Comment: CBC- COMPLETE BLOOD COUNT Performed By: #### 2 71591 #### [facility],[address] [place] [address] 21012 Eosinophils (Bld) [#/Vol] 0.40 x10EE3/UL Normal 0.00 - 0.50 [facility] Comment on above: Performed By: #### 2 58608 #### [facility],[address] [place] [address] 93320 Eosinophils/100 WBC (Bld) 3.9 % Normal 0.0 - 7.0 [facility] Comment on above: Performed By: #### 2 28319 #### [facility],[address],[place] [address] Erythrocyte distribution width (RBC) [Ratio] 12.4 % Normal 12.0 - 15.6 [facility] Comment on above: Performed By: #### 2 62779 #### [facility],[address] [place] [address] 18914 Hematocrit (Bld) [Volume fraction] 39.9 % Low 40.0 - 52.0 [facility] Comment on above: Performed By: #### 2 64451 #### [facility],[address] [place] [address] 82190 Hemoglobin (Bld) [Mass/Vol] 13.3 g/dL Normal 13.0 - 17.5 [facility] Comment on above: Performed By: #### 2 66618 #### [facility],[address] [place] [address] 48804 Lymphocytes (Bld) [#/Vol] 1.90 x10EE3/UL Normal 0.80 - 2.80 [facility] Comment on above: Performed By: #### 2 29139 #### [facility],[address] [place] [address] 52697 Lymphocytes/100 WBC (Bld) 20.3 % Normal 20.0 - 45. 0 [facility] Comment on above: Performed By: #### 2 41683 #### [facility],[address] [place] [address] 02327 MANUAL DIFF N/A Normal [facility] Comment on above: Performed By: #### 2 83063 #### [facility],[address] [place] [address] 97510 MCH (RBC) [Entitic mass] 30 pg Normal 27 - 33 [facility] Comment on above: Performed By: #### 2 12380 #### [facility],[address] [place] [address] 77291 MCHC (RBC) [Mass/Vol] 33 X10 3 Normal 32 - 36 [facility] Comment on above: Performed By: #### 2 12834 #### [facility],[address] [place] [address] 10827 MCV (RBC) [Entitic vol] 91 fL Normal 81 - 98 [facility] Comment on above: Performed By: #### 2 83966 #### [facility],[address] [place] [address] 17842 Monocytes (Bld) [#/Vol] 1.00 x10EE3/UL Normal 0.20 - 1 .00 [facility] Comment on above: Performed By: #### 2 20248 #### [facility],[address] [place] [address] 48218 MONOS % 10.5 % High 0.0 - 10.0 [facility] Comment on above: Performed By: #### 2 24271 #### [facility],[address] [place] [address] 94833 Morphology Crispin (Bld) [Interp] N/A Normal [facility] Comment on above: Performed By: #### 2 02968 #### [facility],[address] [place] [address] 29663 Neutrophils (Bld) [#/Vol] 6.10 x10EE3/UL Normal 1.50 - 7.10 [facility] Comment on above: Performed By: #### 2 21631 #### [facility],[address] [place] [address] 33449 Neutrophils/100 WBC (Bld) 64.4 % Normal 46.0 - 76. 0 [facility] Comment on above: Performed By: #### 2 50197 #### [facility],[address] [place] [address] 66929 Platelet mean volume (Bld) [Entitic vol] 7.4 fL Normal 6.4 - 10.5 [facility] Comment on above: Result Comment: AUTO MATED DIFFERENTIAL Performed By: #### 2 48734 #### [facility],[address] [place] [address] 22767 Platelets (Bld) [#/Vol] 260 x10EE3/UL Normal 150 - 450 [facility] Comment on above: Performed By: #### 2 33483 #### [facility],[address] [place] [address] RBC (Bld) [#/Vol] 4.38 x 10EE6/UL Low 4.50 - 6.00 [facility] Comment on above: Performed By: #### 2 94709 #### [facility],[address] [place], [place] [id number] WBC (Bld) [#/Vol] 9.4 x 10EE3/UL Normal 4.5 - 10.8 [facility] Comment on above: Performed By: #### 2 18138 #### [facility],[address] [place] [address] LITHIUMon 11-05-2019 [place] [Moles/Vol] 0.5 mmol/L Low 0.6 - 1.2 [facility] Comment on above: Performed By: #### 2 99787 #### [facility],[address] [place] [address] RENAL FUNCTION PANELon 11-05 Albumin [Mass/Vol] 3.5 g/dL Normal 3.4 - 4.8 [facility] Comment on above: Performed By: #### 2 82258 #### [facility],[address] [place] [address] B/C RATIO 9 ratio Normal 0 - 30 [facility] Comment on above: Performed By: #### 2 27433 #### [facility],[address] [place] [address] Calcium [Mass/Vol] 9.4 mg/dL Normal 8.6 - 10.2 [facility] Comment on above: Performed By: #### 2 80911 #### [facility],[address],[place] [address] Creatinine [Mass/Vol] 2.2 mg/dL High 0.7 - 1.3 [facility] Comment on above: Performed By: #### 2 09717 #### [facility],[address] [place] [address] Glucose [Mass/Vol] 105 mg/dL Normal 74 - 106 [facility] Comment on above: Performed By: #### 2 16246 #### [facility],[address] [place] [address] Phosphate [Mass/Vol] 4.3 mg/dL Normal 2.7 - 4.9 [facility] [facility] Comment on above: Performed By: #### 2 33002 #### [facility],[address] [place] [address] RENAL FUNCTION PANEL Normal [facility] Comment on above: Result Comment: JESSICA L FUNCTION PANEL Performed By: #### 2 82745 #### [facility],[address] [place] [address] Urea nitrogen [Mass/Vol] 20 mg/dL Normal 6 - 20 [facility] Comment on above: Performed By: #### 2 37389 #### [facility],[address] [place] [address] URINALYSISon 11-05-2019 Bilirubin [Mass/Vol] Negative Normal NORMAL: NEGATIVE [facility] Comment on above: Performed By: #### 2 08558 #### [facility],[address] [place] [address] Blood Negative Normal NORMAL: NEGATIVE [facility] Comment on above: Performed By: #### 2 14193 #### [facility],[address] [place] [address] Clarity (U) clear Normal NORMAL: CLEAR [facility] Comment on above: Performed By: #### 2 46860 #### [facility],[address] [place] [address] Color (U) p.yel Normal NORMAL: YELLOW [facility] Comment on above: Performed By: #### 2 66660 #### [facility],[address] [place] [address] 96026 Glucose [Mass/Vol] NORM Normal NORMAL: NORMAL [facility] Comment on above: Performed By: #### 2 21940 #### [facility],[address] [place] [address] 52003 Ketone Negative Normal NORMAL: NEGATIVE [facility] Comment on above: Performed By: #### 2 08756 #### [facility],[address] [place], [place] [id number] Microscopic NOT INDICATED Normal [facility] Comment on above: Performed By: #### 2 82407 #### [facility],[address] [place], [place] [id number] Nitrite Ql (U) Negative Normal NORMAL: NEGATIVE [facility] Comment on above: Performed By: #### 2 56129 #### [facility],[address] [place], [place] [id number] pH (Bld) 6.5 Normal NORMAL: 5.0-8.0 [facility] Comment on above: Performed By: #### 2 80310 #### [facility],[address] [place] [address] 69872 Protein (U) [Mass/Vol] Negative Normal JENN L: NEGATIVE [facility] Comment on above: Performed By: #### 2 79216 #### [facility],[address] [place] [address] 95147 Sp [place] 1.010 Normal NORMAL: 1.010-1.030 [facility] Comment on above: Performed By: #### 2 19462 #### [facility],[address] [place] [address] 55480 Specimen type Nom (Spec) UNSPECIFIED Normal [facility] Comment on above: Performed By: #### 2 57428 #### [facility],[address] [place] [address] 76850 Urobilinog NORM Normal NORMAL: NORMAL [facility] Comment on above: Performed By: #### 2 49855 #### [facility],[address] [place] [address] 07838 WBC (Bld) [#/Vol] Negative Normal NORMAL: NEGATIVE [facility] Comment on above: Performed By: #### 2 83376 #### [facility],[address] [place], [place] [id number] URINE CREATININE AND PROTEIN RATIOon 11-05-2019 CREATININE UR 72.6 mg/dl Normal [facility] Comment on above: Performed By: #### 2 48530 #### [facility],[address] [place] [address] PC RATIO 0.07 mg/dL Normal 0.00 - 10.00 [facility] Comment on above: Performed By: #### 2 45953 #### [facility],[address] [place] [address] 70234 Protein (U) [Mass/Vol] mg/dL Normal 0.00 - 10.00 [facility] Comment on above: Performed By: #### 2 72401 #### [facility],[address] [place], [place] [phone] BMP with eGFRon 10-08-2019 Age - Reported 54 years Normal [facility] Comment on above: Performed By: #### 2 24930 #### [facility],[address] [place] [address] 68097 Anion gap [Moles/Vol] 12 mmol/L Normal 10 - 20 [facility] Comment on above: Performed By: #### 2 91526 #### [facility],[address] [place] [address] 10809 Calcium [Mass/Vol] 9.2 mg/dL Normal 8.6 - 10.2 [facility] Comment on above: Performed By: #### 2 49611 #### [facility],[address] [place] [address] 87271 Chloride [Moles/Vol] 107 mmol/L Normal 98 - 107 [facility] Comment on above: Performed By: #### 2 51915 #### [facility],[address] [place] [address] 10641 CO2 [Moles/Vol] 26.7 mmol/L Normal 21.0 - 31.0 [facility] Comment on above: Performed By: #### 2 88774 #### [facility],[address] [place] [address] 14683 Creatinine [Mass/Vol] 2.1 mg/dL High 0.7 - 1.3 [facility] Comment on above: Performed By: #### 2 13011 #### [facility],[address] [place] [address] 80357 GFR/1.73 sq M predicted among non-blacks MDRD (S/P/Bld) [Vol rate/Area] Normal [facility] Comment on above: Result Comment: BASI C METABOLIC PANEL Performed By: #### 2 78656 #### [facility],[address] [place] [address] 71678 GFR/1.73 sq M predicted among non-blacks MDRD (S/P/Bld) [Vol rate/Area] 40 ML/MINUTE Low 60 - 999 [facility] Comment on above: Result Comment: ACCO RDING TO THE NATIONAL KIDNEY DISEASE EDUCATION PROGRAM(NKDE), A NORMAL eGFR IS A VALUE GREATER THAN OR EQUAL TO 60 ML/MIN/1.73 SQ METERS. CHRONIC KIDNEY DISEASE: <60mL/MIN/1.73 SQ METERS KIDNEY FAILURE: <15mL/MIN/1.73 SQ METERS THIS TEST SHOULD ONLY BE USED FOR PATIENTS 18 YEARS OF AGE AND OLDER. Performed By: #### 2 69686 #### [facility],[address] [place] [address] 58637 GFR/1.73 sq M predicted among non-blacks MDRD (S/P/Bld) [Vol rate/Area] 33 ML/MINUTE Low 60 - 999 [facility] Comment on above: Performed By: #### 2 48268 #### [facility],[address] [place] [address] 55522 Glucose [Mass/Vol] 106 mg/dL Normal 74 - 106 [facility] Comment on above: Performed By: #### 2 03298 #### [facility],[address] [place] [address] 79744 Potassium [Moles/Vol] 3.6 mmol/L Normal 3.5 - 5.1 [facility] Comment on above: Performed By: #### 2 69229 #### [facility],[address] [place] [address] 33715 Sodium [Moles/Vol] 142 mmol/L Normal 136 - 145 [facility] Comment on above: Performed By: #### 2 60642 #### [facility],[address] [place], [place] [phone] Urea nitrogen [Mass/Vol] 22 mg/dL High 6 - 20 [facility] Comment on above: Performed By: #### 2 57710 #### [facility],[address] [place] [address] 95936 CBC + DIFFon 10-08-2019 Basophils (Bld) [#/Vol] 0.10 x10EE3/UL Normal 0.00 - 0 .10 [facility] Comment on above: Performed By: #### 2 61764 #### [facility],[address] [place] [address] 24915 Basophils/100 WBC (Bld) 0.7 % Normal 0.0 - 2.0 [facility] Comment on above: Performed By: #### 2 33118 #### [facility],[address] [place] [address] 14641 CBC + DIFF Normal [facility] Comment on above: Result Comment: CBC- COMPLETE BLOOD COUNT Performed By: #### 2 91256 #### [facility],[address] [place] [address] 48863 Eosinophils (Bld) [#/Vol] 0.50 x10EE3/UL Normal 0.00 - 0.50 [facility] Comment on above: Performed By: #### 2 06071 #### [facility],[address] [place] [address] 59593 Eosinophils/100 WBC (Bld) 5.1 % Normal 0.0 - 7.0 [facility] Comment on above: Performed By: #### 2 74894 #### [facility],[address] [place] [address] 89853 Erythrocyte distribution width (RBC) [Ratio] 12.8 % Normal 12.0 - 15.6 [facility] Comment on above: Performed By: #### 2 45143 #### [place] [id number] Hematocrit (Bld) [Volume fraction] 37.6 % Low 40.0 - 52.0 [facility] Comment on above: Performed By: #### 2 77400 #### [address] [address] Hemoglobin (Bld) [Mass/Vol] 12.5 g/dL Low 13.0 - 17.5 [facility] Comment on above: Performed By: #### 2 63497 #### [address] [address] Lymphocytes (Bld) [#/Vol] 1.90 x10EE3/UL Normal 0.80 - 2.80 [facility] Comment on above: Performed By: #### 2 47821 #### [address] [address] Lymphocytes/100 WBC (Bld) 18.6 % Low 20.0 - 45. 0 [facility] Comment on above: Performed By: #### 2 24733 #### [facility],[address] [place] [address] 74187 MANUAL DIFF N/A Normal [facility] Comment on above: Performed By: #### 2 72878 #### [facility],[address] [place], [place] [phone] MCH (RBC) [Entitic mass] 31 pg Normal 27 - 33 [facility] Comment on above: Performed By: #### 2 74085 #### [facility],[address] [place] [address] MCHC (RBC) [Mass/Vol] 33 X10 3 Normal 32 - 36 [facility] Comment on above: Performed By: #### 2 36657 #### [facility],[address] [place], [place] [address] MCV (RBC) [Entitic vol] 93 fL Normal 81 - 98 [facility] Comment on above: Performed By: #### 2 76829 #### [facility],[address] [place], [place] [address] Monocytes (Bld) [#/Vol] 1.00 x10EE3/UL Normal 0.20 - 1 .00 [facility] Comment on above: Performed By: #### 2 81680 #### [facility],[address] [place] [address] 89454 MONOS % 9.4 % Normal 0.0 - 10.0 [facility] Comment on above: Performed By: #### 2 59877 #### [facility],[address] [place] [address] 47015 Morphology Crispin (Bld) [Interp] N/A Normal [facility] Comment on above: Performed By: #### 2 41164 #### [facility],[address] [place] [address] 00383 Neutrophils (Bld) [#/Vol] 6.90 x10EE3/UL Normal 1.50 - 7.10 [facility] Comment on above: Performed By: #### 2 96311 #### [facility],[address] [place], [place] [address] Neutrophils/100 WBC (Bld) 66.2 % Normal 46.0 - 76. 0 [facility] Comment on above: Performed By: #### 2 02446 #### [facility],[address] [place] [address] Platelet mean volume (Bld) [Entitic vol] 7.7 fL Normal 6.4 - 10.5 [facility] Comment on above: Result Comment: AUTO MATED DIFFERENTIAL Performed By: #### 2 17519 #### [address] [address] Platelets (Bld) [#/Vol] 250 x10EE3/UL Normal 150 - 450 [facility] Comment on above: Performed By: #### 2 96983 #### [address] [address] RBC (Bld) [#/Vol] 4.07 x 10EE6/UL Low 4.50 - 6.00 [facility] Comment on above: Performed By: #### 2 78501 #### [facility],[address] [place] [address] 25705 WBC (Bld) [#/Vol] 10.4 x 10EE3/UL Normal 4.5 - 10.8 [facility] Comment on above: Performed By: #### 2 41953 #### [address] [address] CULTURE URINEon 10-08-2019 CULTURE URINE CULTURE URINE _URINE CULTURE_ M I C R O B I O L O G Y R E P O R T FINAL Antimicrobial Susceptibility and Organism Identification Report Specimen Number : [id number] Requested : 10/08/19 Specimen Source : URINE Collected : 10/08/19 08:30 Ar[place] of [place] : MEME HUANG Received : 10/08/19 08:30 Requesting Physician : FLORECITA ------ Patient/Specimen Tests and Comments Specimen Comments FINAL REPORT: NO GROWTH AT 48 HOURS ------ Tech : Source : URINE ID # : [id number] FINAL Report Date : / / : Collected : 10/08/19 08:30 10/10/19.1115.BKO. 10/09/19.1011.BKO. 10/10/19.1115.BKO.[employer] PAIGE [facility] Comment on above: Performed By: #### 2 38389 #### [facility],[address] [place] [address] 73250 HEPATIC FUNCTION PANELon ALK PHOS 52 U/L Normal 38 - 126 [facility] Comment on above: Performed By: #### 2 10796 #### [facility],[address] [place] [address] 91320 ALT/SGPT 15 U/L Normal 10 - 40 [facility] Comment on above: Performed By: #### 2 97755 #### [facility],[address] [place] [address] 67584 AST/SGOT 9 U/L Low 13 - 39 [facility] Comment on above: Performed By: #### 2 31573 #### [facility],[address] [place] [address] 94728 Bilirubin [Mass/Vol] 0.3 mg/dL Normal 0.0 - 1.5 [facility] Comment on above: Performed By: #### 2 07905 #### [facility],[address] [place] [address] 51144 Bilirubin.direct [Mass/Vol] 0.1 mg/dL Normal 0.0 - 0.1 [facility] Comment on above: Performed By: #### 2 07357 #### [facility],[address] [place] [address] 48500 HEPATIC FUNCTION PANEL Normal [facility] Comment on above: Result Comment: HEPA TIC FUNCTION PROFILE Performed By: #### 2 92199 #### [facility],[address] [place] [address] 53160 Protein [Mass/Vol] 5.5 g/dL Low 6.4 - 8.3 [facility] Comment on above: Performed By: #### 2 02672 #### [facility],[address] [place] [address] 26903 LITHIUMon 10-08-2019 [place] [Moles/Vol] 0.6 mmol/L Normal 0.6 - 1.2 [facility] Comment on above: Performed By: #### 2 70348 #### [facility],[address] [place] [address] 40878 RENAL FUNCTION PANELon 10-08 Albumin [Mass/Vol] 3.5 g/dL Normal 3.4 - 4.8 [facility] Comment on above: Performed By: #### 2 48453 #### [facility],[address] [place], [place] [id number] B/C RATIO 10 ratio Normal 0 - 30 [facility] Comment on above: Performed By: #### 2 95104 #### [facility],[address] [place] [address] 60450 Calcium [Mass/Vol] 9.2 mg/dL Normal 8.6 - 10.2 [facility] Comment on above: Performed By: #### 2 99143 #### [facility],[address] [place] [address] 69001 Chloride [Moles/Vol] 107 mmol/L Normal 98 - 107 [facility] Comment on above: Performed By: #### 2 85275 #### [facility],[address] [place] [address] 38381 CO2 [Moles/Vol] 26.7 mmol/L Normal 21.0 - 31.0 [facility] Comment on above: Performed By: #### 2 21498 #### [facility],[address] [place] [address] 55893 Creatinine [Mass/Vol] 2.1 mg/dL High 0.7 - 1.3 [facility] Comment on above: Performed By: #### 2 68612 #### [facility],[address] [place] [address] 65315 Glucose [Mass/Vol] 106 mg/dL Normal 74 - 106 [facility] Comment on above: Performed By: #### 2 34793 #### [facility],[address] [place] [address] 05193 Phosphate [Mass/Vol] 4.7 mg/dL Normal 2.7 - 4.9 [facility] Comment on above: Performed By: #### 2 72160 #### [facility],[address] [place] [address] 09929 Potassium [Moles/Vol] 3.6 mmol/L Normal 3.5 - 5.1 [facility] Comment on above: Performed By: #### 2 83731 #### [facility],[address] [place] [address] 24440 RENAL FUNCTION PANEL Normal [facility] Comment on above: Result Comment: JESSICA L FUNCTION PANEL Performed By: #### 2 68381 #### [facility],[address] [place] [address] 07821 Sodium [Moles/Vol] 142 mmol/L Normal 136 - 145 [facility] Comment on above: Performed By: #### 2 24550 #### [facility],[address] [place] [address] 95353 Urea nitrogen [Mass/Vol] 22 mg/dL High 6 - 20 [facility] Comment on above: Performed By: #### 2 10551 #### [facility],[address] [place] [address] 75389 URINALYSISon 10-08-2019 Bilirubin [Mass/Vol] Negative Normal NORMAL: NEGATIVE [facility] Comment on above: Performed By: #### 2 39076 #### [facility],[address] [place] [address] 68543 Blood Negative Normal NORMAL: NEGATIVE [facility] Comment on above: Performed By: #### 2 44515 #### [facility],[address] [place] [address] 73076 Clarity (U) clear Normal NORMAL: CLEAR [facility] Comment on above: Performed By: #### 2 27925 #### [facility],[address] [place] [address] 55169 Color (U) p.yel Normal NORMAL: YELLOW [facility] Comment on above: Performed By: #### 2 47309 #### [facility],[address] [place] [address] 03957 Glucose [Mass/Vol] NORM Normal NORMAL: NORMAL [facility] Comment on above: Performed By: #### 2 37539 #### [facility],[address] [place] [address] Ketone Negative Normal NORMAL: NEGATIVE [facility] Comment on above: Performed By: #### 2 74270 #### [facility],[address] [place] [address] Microscopic NOT INDICATED Normal [facility] Comment on above: Performed By: #### 2 72195 #### [facility],[address] [place], [place] [id number] Nitrite Ql (U) Negative Normal NORMAL: NEGATIVE [facility] Comment on above: Performed By: #### 2 98186 #### [facility],[address] [place] [address] pH (Bld) 6 Normal NORMAL: 5.0-8.0 [facility] Comment on above: Performed By: #### 2 65594 #### [facility],[address] [place], [place] [id number] Protein (U) [Mass/Vol] Negative Normal JENN L: NEGATIVE [facility] Comment on above: Performed By: #### 2 01257 #### [facility],[address] [place], [place] [id number] Sp [place] 1.015 Normal NORMAL: 1.010-1.030 [facility] Comment on above: Performed By: #### 2 25694 #### [facility],[address] [place], [place] [id number] Specimen type Nom (Spec) Clean catch Normal [facility] Comment on above: Performed By: #### 2 85637 #### [facility],[address] [place] [address] 40366 Urobilinog NORM Normal NORMAL: NORMAL [facility] Comment on above: Performed By: #### 2 43264 #### [facility],[address] [place] [address] 84450 WBC (Bld) [#/Vol] Negative Normal NORMAL: NEGATIVE [facility] Comment on above: Performed By: #### 2 84775 #### [facility],[address] [place] [address] CBC + DIFFon 09-10-2019 Basophils (Bld) [#/Vol] 0.10 x10EE3/UL Normal 0.00 - 0 .10 [facility] Comment on above: Performed By: #### 2 34664 #### [facility],[address] [place] [address] 56607 Basophils/100 WBC (Bld) 1.0 % Normal 0.0 - 2.0 [facility] Comment on above: Performed By: #### 2 13017 #### [facility],[address] [place] [address] 13354 CBC + DIFF Normal [facility] Comment on above: Result Comment: CBC- COMPLETE BLOOD COUNT Performed By: #### 2 89714 #### [facility],[address] [place] [address] 82536 Eosinophils (Bld) [#/Vol] 0.50 x10EE3/UL Normal 0.00 - 0.50 [facility] Comment on above: Performed By: #### 2 18036 #### [facility],[address] [place] [address] 14823 Eosinophils/100 WBC (Bld) 6.3 % Normal 0.0 - 7.0 [facility] Comment on above: Performed By: #### 2 44941 #### [facility],[address] [place] [address] 06149 Erythrocyte distribution width (RBC) [Ratio] 13.3 % Normal 12.0 - 15.6 [facility] Comment on above: Performed By: #### 2 02652 #### [facility],[address] [place] [address] 40617 Hematocrit (Bld) [Volume fraction] 36.9 % Low 40.0 - 52.0 [facility] Comment on above: Performed By: #### 2 65523 #### [facility],[address] [place] [address] 59797 Hemoglobin (Bld) [Mass/Vol] 12.5 g/dL Low 13.0 - 17.5 [facility] Comment on above: Performed By: #### 2 21198 #### [facility],[address] [place] [address] 13432 Lymphocytes (Bld) [#/Vol] 2.20 x10EE3/UL Normal 0.80 - 2.80 [facility] Comment on above: Performed By: #### 2 47365 #### [facility],[address] [place] [address] 23222 Lymphocytes/100 WBC (Bld) 25.0 % Normal 20.0 - 45. 0 [facility] Comment on above: Performed By: #### 2 58988 #### [facility],[address] [place] [address] 72136 MANUAL DIFF N/A Normal [facility] Comment on above: Performed By: #### 2 10758 #### [facility],[address] [place] [address] 96289 MCH (RBC) [Entitic mass] 31 pg Normal 27 - 33 [facility] Comment on above: Performed By: #### 2 38548 #### [facility],[address] [place] [address] 82756 MCHC (RBC) [Mass/Vol] 34 X10 3 Normal 32 - 36 [facility] Comment on above: Performed By: #### 2 34331 #### [facility],[address] [place] [address] 29302 MCV (RBC) [Entitic vol] 93 fL Normal 81 - 98 [facility] Comment on above: Performed By: #### 2 57372 #### [facility],[address] [place] [address] 61744 Monocytes (Bld) [#/Vol] 0.90 x10EE3/UL Normal 0.20 - 1 .00 [facility] Comment on above: Performed By: #### 2 63073 #### [address] [address] MONOS % 10.6 % High 0.0 - 10.0 [facility] Comment on above: Performed By: #### 2 20380 #### [address] [address] Morphology Crispin (Bld) [Interp] N/A Normal [facility] Comment on above: Performed By: #### 2 10274 #### [address] [address] Neutrophils (Bld) [#/Vol] 5.00 x10EE3/UL Normal 1.50 - 7.10 [facility] Comment on above: Performed By: #### 2 83848 #### [address] [address] Neutrophils/100 WBC (Bld) 57.1 % Normal 46.0 - 76. 0 [facility] Comment on above: Performed By: #### 2 06847 #### [address] [address] Platelet mean volume (Bld) [Entitic vol] 7.6 fL Normal 6.4 - 10.5 [facility] Comment on above: Result Comment: AUTO MATED DIFFERENTIAL Performed By: #### 2 45406 #### [address],[place] [address] Platelets (Bld) [#/Vol] 236 x10EE3/UL Normal 150 - 450 [facility] Comment on above: Performed By: #### 2 14239 #### [facility],[address] [place] [address] 51345 RBC (Bld) [#/Vol] 3.99 x 10EE6/UL Low 4.50 - 6.00 [facility] Comment on above: Performed By: #### 2 33974 #### [facility],[address] [place] [address] 80549 WBC (Bld) [#/Vol] 8.7 x 10EE3/UL Normal 4.5 - 10.8 [facility] Comment on above: Performed By: #### 2 82158 #### [facility],[address] [place] [address] 83416 CULTURE URINEon 09-10-2019 CULTURE URINE CULTURE URINE _URINE CULTURE_ M I C R O B I O L O G Y R E P O R T FINAL Antimicrobial Susceptibility and Organism Identification Report Specimen Number : [id number] Requested : 09/10/19 Specimen Source : CLEAN CATCH URINE Collected : 09/10/19 04:30 [employer] [place] : MEME HUANG Received : 09/10/19 04:30 Requesting Physician : FLORECITA ------ Patient/Specimen Tests and Comments Specimen Comments FINAL REPORT: NO GROWTH AT 48 HOURS ------ Tech : Source : CLEAN CATCH URINE ID # : [id number] FINAL Report Date : / / : Collected : 09/10/19 04:30 09/12/19.1053.BKO. 09/11/19.0717.JLN. 09/12/19.1053.BKO.Games2Win PLETE 09/12/19105.BKO.to [facility] via fax Normal [facility] Comment on above: Performed By: #### 2 83462 #### [facility],[address] [place] [address] 29704 LITHIUMon 09-10-2019 [place] [Moles/Vol] 0.6 mmol/L Normal 0.6 - 1.2 [facility] Comment on above: Performed By: #### 2 94704 #### [facility],[address] [place] [address] 71399 RENAL FUNCTION PANEL WITH eG FRon 09-10-2019 Age - Reported 54 years Normal [facility] Comment on above: Performed By: #### 2 23891 #### [facility],[address] [place] [address] 96428 Albumin [Mass/Vol] 3.4 g/dL Normal 3.4 - 4.8 [facility] Comment on above: Performed By: #### 2 82543 #### [facility],[address] [place] [address] 46880 B/C RATIO 11 ratio Normal 0 - 30 [facility] Comment on above: Performed By: #### 2 42648 #### [facility],[address] [place] [address] 92762 Calcium [Mass/Vol] 9.2 mg/dL Normal 8.6 - 10.2 [facility] Comment on above: Performed By: #### 2 01666 #### [facility],[address] [place] [address] 94384 Chloride [Moles/Vol] 107 mmol/L Normal 98 - 107 [facility] Comment on above: Performed By: #### 2 37080 #### [facility],[address] [place] [address] 64324 CO2 [Moles/Vol] 25.3 mmol/L Normal 21.0 - 31.0 [facility] Comment on above: Performed By: #### 2 66139 #### [facility],[address] [place] [address] 82332 Creatinine [Mass/Vol] 2.2 mg/dL High 0.7 - 1.3 [facility] Comment on above: Performed By: #### 2 79177 #### [address] [address] GFR/1.73 sq M predicted among non-blacks MDRD (S/P/Bld) [Vol rate/Area] 31 ML/MINUTE Low 60 - 999 [facility] Comment on above: Performed By: #### 2 78127 #### [facility],[address] [place] [address] 99803 GFR/1.73 sq M predicted among non-blacks MDRD (S/P/Bld) [Vol rate/Area] 38 ML/MINUTE Low 60 - 999 [facility] Comment on above: Result Comment: ACCO RDING TO THE NATIONAL KIDNEY DISEASE EDUCATION PROGRAM(NKDE), A NORMAL eGFR IS A VALUE GREATER THAN OR EQUAL TO 60 ML/MIN/1.73 SQ METERS. CHRONIC KIDNEY DISEASE: <60mL/MIN/1.73 SQ METERS KIDNEY FAILURE: <15mL/MIN/1.73 SQ METERS THIS TEST SHOULD ONLY BE USED FOR PATIENTS 18 YEARS OF AGE AND OLDER. Performed By: #### 2 79118 #### [facility],[address] [place] [address] 12656 Glucose [Mass/Vol] 96 mg/dL Normal 74 - 106 [facility] Comment on above: Performed By: #### 2 67416 #### [facility],[address] [place] [address] 00693 Phosphate [Mass/Vol] 4.5 mg/dL Normal 2.7 - 4.9 [facility] Comment on above: Performed By: #### 2 41680 #### [facility],[address] [place] [address] 58482 Potassium [Moles/Vol] 3.5 mmol/L Normal 3.5 - 5.1 [facility] Comment on above: Performed By: #### 2 23907 #### [facility],[address] [place] [address] 53249 RENAL FUNCTION PANEL WITH eGFR Normal [facility] Comment on above: Result Comment: JESSICA L FUNCTION PANEL Performed By: #### 2 35910 #### [facility],[address] [place] [address] 50929 Sodium [Moles/Vol] 141 mmol/L Normal 136 - 145 [facility] Comment on above: Performed By: #### 2 07495 #### [facility],[address] [place] [address] Urea nitrogen [Mass/Vol] 24 mg/dL High 6 - 20 [facility] Comment on above: Performed By: #### 2 96586 #### [facility],[address] [place], [place] [phone] URINALYSISon 09-10-2019 Bilirubin [Mass/Vol] Negative Normal NORMAL: NEGATIVE [facility] Comment on above: Performed By: #### 2 57446 #### [facility],[address] [place], [place] [phone] Blood Negative Normal NORMAL: NEGATIVE [facility] Comment on above: Performed By: #### 2 85281 #### [facility],[address] [place] [address] Clarity (U) clear Normal NORMAL: CLEAR [facility] Comment on above: Performed By: #### 2 19799 #### [facility],[address] [place], [place] [phone] Color (U) p.yel Normal NORMAL: YELLOW [facility] Comment on above: Performed By: #### 2 53086 #### [facility],[address] [place], [place] [phone] Glucose [Mass/Vol] NORM Normal NORMAL: NORMAL [facility] Comment on above: Performed By: #### 2 41891 #### [facility],[address] [place], [place] [phone] Ketone Negative Normal NORMAL: NEGATIVE [facility] Comment on above: Performed By: #### 2 86211 #### [facility],[address] [place], [place] [phone] Microscopic NOT INDICATED Normal [facility] Comment on above: Performed By: #### 2 22838 #### [facility],[address] [place] [address] 60874 Nitrite Ql (U) Negative Normal NORMAL: NEGATIVE [facility] Comment on above: Performed By: #### 2 78099 #### [facility],[address] [place] [address] 40746 pH (Bld) 6.5 Normal NORMAL: 5.0-8.0 [facility] Comment on above: Performed By: #### 2 96610 #### [facility],[address] [place] [address] 69276 Protein (U) [Mass/Vol] Negative Normal JENN L: NEGATIVE [facility] Comment on above: Performed By: #### 2 65006 #### [facility],[address] [place] [address] Sp [place] 1.010 Normal NORMAL: 1.010-1.030 [facility] Comment on above: Performed By: #### 2 32455 #### [facility],[address] [place] [address] Specimen type Nom (Spec) Clean catch Normal [facility] Comment on above: Performed By: #### 2 42208 #### [facility],[address] [place] [address] Urobilinog NORM Normal NORMAL: NORMAL [facility] Comment on above: Performed By: #### 2 60422 #### [facility],[address] [place], [place] [phone] WBC (Bld) [#/Vol] Negative Normal NORMAL: NEGATIVE [facility] Comment on above: Performed By: #### 2 03857 #### [facility],[address] [place], [place] [phone] URINE CREATININE AND PROTEIN RATIOon 09-10-2019 CREATININE UR 58.3 mg/dl Normal [facility] Comment on above: Performed By: #### 2 63870 #### [facility],[address] [place] [address] 18522 PC RATIO 0.09 mg/dL Normal 0.00 - 10.00 [facility] Comment on above: Performed By: #### 2 87172 #### [facility],[address] [place] [address] 06266 Protein (U) [Mass/Vol] mg/dL Normal 0.00 - 10.00 [facility] Comment on above: Performed By: #### 2 41111 #### [facility],[address] [place] [address] 47784 BMP with eGFRon 08-31-2019 Age - Reported 54 years Normal [facility] Comment on above: Performed By: #### 2 51508 #### [facility],[address] [place] [address] 56880 Anion gap [Moles/Vol] 12 mmol/L Normal 10 - 20 [facility] Comment on above: Performed By: #### 2 00179 #### [facility],[address] [place] [address] 35829 Calcium [Mass/Vol] 9.4 mg/dL Normal 8.6 - 10.2 [facility] Comment on above: Performed By: #### 2 91630 #### [facility],[address] [place] [address] 59537 Chloride [Moles/Vol] 104 mmol/L Normal 98 - 107 [facility] Comment on above: Performed By: #### 2 57166 #### [facility],[address] [place] [address] 06745 CO2 [Moles/Vol] 26.9 mmol/L Normal 21.0 - 31.0 [facility] Comment on above: Performed By: #### 2 49623 #### [facility],[address] [place] [address] 78574 Creatinine [Mass/Vol] 2.4 mg/dL High 0.7 - 1.3 [facility] Comment on above: Performed By: #### 2 74226 #### [facility],[address] [place] [address] 14411 GFR/1.73 sq M predicted among non-blacks MDRD (S/P/Bld) [Vol rate/Area] Normal [facility] Comment on above: Result Comment: BASI C METABOLIC PANEL Performed By: #### 2 32625 #### [facility],[address] [place] [address] 43548 GFR/1.73 sq M predicted among non-blacks MDRD (S/P/Bld) [Vol rate/Area] 28 ML/MINUTE Low 60 - 999 [facility] Comment on above: Performed By: #### 2 62533 #### [facility],[address] [place] [address] 50211 GFR/1.73 sq M predicted among non-blacks MDRD (S/P/Bld) [Vol rate/Area] 34 ML/MINUTE Low 60 - 999 [facility] Comment on above: Result Comment: ACCO RDING TO THE NATIONAL KIDNEY DISEASE EDUCATION PROGRAM(NKDE), A NORMAL eGFR IS A VALUE GREATER THAN OR EQUAL TO 60 ML/MIN/1.73 SQ METERS. CHRONIC KIDNEY DISEASE: <60mL/MIN/1.73 SQ METERS KIDNEY FAILURE: <15mL/MIN/1.73 SQ METERS THIS TEST SHOULD ONLY BE USED FOR PATIENTS 18 YEARS OF AGE AND OLDER. Performed By: #### 2 72972 #### [facility],[address] [place] [address] 45544 Glucose [Mass/Vol] 106 mg/dL Normal 74 - 106 [facility] Comment on above: Performed By: #### 2 31883 #### [facility],[address] [place] [address] 22956 Potassium [Moles/Vol] 3.5 mmol/L Normal 3.5 - 5.1 [facility] Comment on above: Performed By: #### 2 17927 #### [facility],[address] [place] [address] 73352 Sodium [Moles/Vol] 139 mmol/L Normal 136 - 145 [facility] Comment on above: Performed By: #### 2 70097 #### [facility],[address] [place] [address] 79826 Urea nitrogen [Mass/Vol] 25 mg/dL High 6 - 20 [facility] Comment on above: Performed By: #### 2 18678 #### [facility],[address] [place] [address] 03201 HGB A1C [CCL]on 08-26-2019 HbA1c (Bld) [Mass fraction] 117 mg/dL Normal [facility] Comment on above: Result Comment: eAG: (Estimated average glucose) is a calculated value from HgbA1c and is phlebotomy services representative of the average blood glucose level in the last 2-3 month period. [facility] [address] [place] [address] Peyton Lang M.D. [id number] Performed By: #### 2 91314 #### [place] [id number] HbA1c (Bld) [Mass fraction] 5.7 % High 4.3-5.6 [facility] Comment on above: Result Comment: [place] Diabetes Association guidelines indicate that patients with HgbA1c in the range 5.7-6.4% are at increased risk for development of diabetes, and intervention by lifestyle modification may be beneficial. HgbA1c greater or equal to 6.5% is considered diagnostic of diabetes. Performed By: #### 2 50208 #### [facility],[address] [place] [address] 09881 Hemoglobin A1con 08-26-2019 HbA1c (Bld) [Mass fraction] 5.7 % High 4.3-5.6 [facility] Comment on above: Performed By: #### H BA1C #### [facility] Routine Lab [address] [place], [place] [address] HbA1c (Bld) [Mass fraction] 117 mg/dL Normal [facility] Comment on above: Performed By: #### H BA1C #### [facility] Routine Lab [address] [place], [place] [address] RENAL FUNCTION PANELon 08-14 Albumin [Mass/Vol] 3.2 g/dL Low 3.4 - 4.8 [facility] Comment on above: Performed By: #### 2 70787 #### [facility],[address] [place] [address] 72118 B/C RATIO 13 ratio Normal 0 - 30 [facility] Comment on above: Performed By: #### 2 95484 #### [facility],[address] [place] [address] 48703 Calcium [Mass/Vol] 8.8 mg/dL Normal 8.6 - 10.2 [facility] Comment on above: Performed By: #### 2 21364 #### [facility],[address] [place] [address] 16263 Chloride [Moles/Vol] 105 mmol/L Normal 98 - 107 [facility] Comment on above: Performed By: #### 2 25316 #### [facility],[address] [place] [address] 17110 CO2 [Moles/Vol] 29.8 mmol/L Normal 21.0 - 31.0 [facility] Comment on above: Performed By: #### 2 04705 #### [facility],[address] [place] [address] 06419 Creatinine [Mass/Vol] 2.0 mg/dL High 0.7 - 1.3 [facility] Comment on above: Performed By: #### 2 00986 #### [facility],[address] [place] [address] 53193 Glucose [Mass/Vol] 78 mg/dL Normal 74 - 106 [facility] Comment on above: Performed By: #### 2 75156 #### [facility],[address] [place] [address] 80360 Phosphate [Mass/Vol] 4.8 mg/dL Normal 2.7 - 4.9 [facility] Comment on above: Performed By: #### 2 31710 #### [facility],[address] [place] [address] 36792 Potassium [Moles/Vol] 3.9 mmol/L Normal 3.5 - 5.1 [facility] Comment on above: Performed By: #### 2 16126 #### [facility],[address] [place] [address] 49222 RENAL FUNCTION PANEL Normal [facility] Comment on above: Result Comment: JESSICA L FUNCTION PANEL Performed By: #### 2 28027 #### [facility],[address] [place] [address] 48869 Sodium [Moles/Vol] 141 mmol/L Normal 136 - 145 [facility] Comment on above: Performed By: #### 2 06299 #### [facility],[address] [place] [address] 94002 Urea nitrogen [Mass/Vol] 25 mg/dL High 6 - 20 [facility] Comment on above: Performed By: #### 2 18979 #### [facility],[address] [place] [address] 90410 CBC (NO DIFF)on 08-06-2019 CBC (NO DIFF) Normal [facility] Comment on above: Result Comment: CBC( WITHOUT DIFFERENTIAL) Performed By: #### 2 10654 #### [facility],[address] [place] [address] 83179 Erythrocyte distribution width (RBC) [Ratio] 13.2 % Normal 12.0 - 15.6 [facility] Comment on above: Performed By: #### 2 69040 #### [facility],[address] [place] [address] 76973 Hematocrit (Bld) [Volume fraction] 37.7 % Low 40.0 - 52.0 [facility] Comment on above: Performed By: #### 2 68406 #### [facility],[address] [place] [address] 15600 Hemoglobin (Bld) [Mass/Vol] 12.9 g/dL Low 13.0 - 17.5 [facility] Comment on above: Performed By: #### 2 53678 #### [facility],[address] [place] [address] 06298 MCH (RBC) [Entitic mass] 32 pg Normal 27 - 33 [facility] Comment on above: Performed By: #### 2 32583 #### [facility],[address] [place] [address] 59406 MCHC (RBC) [Mass/Vol] 34 X10 3 Normal 32 - 36 [facility] Comment on above: Performed By: #### 2 68109 #### [facility],[address] [place] [address] 30746 MCV (RBC) [Entitic vol] 94 fL Normal 81 - 98 [facility] Comment on above: Performed By: #### 2 27543 #### [facility],[address] [place] [address] 44950 Platelet mean volume (Bld) [Entitic vol] 7.3 fL Normal 6.4 - 10.5 [facility] Comment on above: Performed By: #### 2 45219 #### [facility],[address] [place] [address] 21463 Platelets (Bld) [#/Vol] 166 x10EE3/UL Normal 150 - 450 [facility] Comment on above: Performed By: #### 2 12042 #### [facility],[address] [place] [address] 47702 RBC (Bld) [#/Vol] 4.00 x 10EE6/UL Low 4.50 - 6.00 [facility] Comment on above: Performed By: #### 2 71325 #### [facility],[address] [place] [address] 79065 WBC (Bld) [#/Vol] 8.7 x 10EE3/UL Normal 4.5 - 10.8 [facility] Comment on above: Performed By: #### 2 19666 #### [facility],[address] [place] [address] 37347 CULTURE URINEon 08-06-2019 CULTURE URINE CULTURE URINE _URINE CULTURE_ M I C R O B I O L O G Y R E P O R T FINAL Antimicrobial Susceptibility and Organism Identification Report Specimen Number : [id number] Requested : 08/06/19 Specimen Source : CLEAN CATCH URINE Collected : 08/06/19 03:10 [place] [employer] [place] : MEME HUANG Received : 08/06/19 03:10 Requesting Physician : FLORECITA ------ Patient/Specimen Tests and Comments Specimen Comments FINAL REPORT: NO GROWTH AT 48 HOURS ------ Tech : Source : CLEAN CATCH URINE ID # : [id number] FINAL Report Date : / / : Collected : 08/06/19 03:10 08/08/19.1104.BKO. 08/07/19.0711.JLN. 08/08/19.1105.[employer].Games2Win PLETE Normal [facility] Comment on above: Performed By: #### 2 51946 #### [facility],[address] [place] [address] LITHIUMon 08-06-2019 [place] [Moles/Vol] 0.6 mmol/L Normal 0.6 - 1.2 [facility] Comment on above: Performed By: #### 2 60167 #### [facility],[address] [place] [address] MR MRI BRAIN W/O CONTRASTon 08-06-2019 [facility] [place] [address] Patient: REGGIE LEÓN Phone#: : 1965 Age: 54 Gender: M Pt. Type: Out Account: [id number] Location: Ordering: [facility] EBRNABE Exam Date: 08/06/2019/8:56 Family Phys: Charge Code: [id number] Physician: Sully Order #: [id number] DLP Dose#: PROCEDURE: MRI BRAIN WITHOUT CONTRAST [...] 9:51 Normal [facility] RENAL FUNCTION PANELon 08-06 Albumin [Mass/Vol] 3.3 g/dL Low 3.4 - 4.8 [facility] Comment on above: Performed By: #### 2 91209 #### [place] [id number] B/C RATIO 11 ratio Normal 0 - 30 [facility] Comment on above: Performed By: #### 2 61622 #### [address] [address] Calcium [Mass/Vol] 8.9 mg/dL Normal 8.6 - 10.2 [facility] Comment on above: Performed By: #### 2 59982 #### [address] [address] Chloride [Moles/Vol] 107 mmol/L Normal 98 - 107 [facility] Comment on above: Performed By: #### 2 35221 #### [address] [address] CO2 [Moles/Vol] 26.8 mmol/L Normal 21.0 - 31.0 [facility] Comment on above: Performed By: #### 2 79192 #### [address] [address] Creatinine [Mass/Vol] 2.2 mg/dL High 0.7 - 1.3 [facility] Comment on above: Performed By: #### 2 19448 #### [facility],[address] [place] [address]643 Glucose [Mass/Vol] 84 mg/dL Normal 74 - 106 [facility] Comment on above: Performed By: #### 2 98836 #### [facility],[address] [place] [address] 89217 Phosphate [Mass/Vol] 3.9 mg/dL Normal 2.7 - 4.9 [facility] Comment on above: Performed By: #### 2 20230 #### [facility],[address] [place] [address] 77091 Potassium [Moles/Vol] 4.1 mmol/L Normal 3.5 - 5.1 [facility] Comment on above: Performed By: #### 2 25911 #### [facility],[address] [place] [address] 29487 RENAL FUNCTION PANEL Normal [facility] Comment on above: Result Comment: JESSICA L FUNCTION PANEL Performed By: #### 2 60401 #### [facility],[address] [place] [address] 29594 Sodium [Moles/Vol] 141 mmol/L Normal 136 - 145 [facility] Comment on above: Performed By: #### 2 62423 #### [facility],[address] [place] [address] 04674 Urea nitrogen [Mass/Vol] 25 mg/dL High 6 - 20 [facility] Comment on above: Performed By: #### 2 90830 #### [facility],[address] [place] [address] 66718 URINALYSISon 08-06-2019 Bilirubin [Mass/Vol] Negative Normal NORMAL: NEGATIVE [facility] Comment on above: Performed By: #### 2 49071 #### [facility],[address] [place] [address] 51558 Blood Negative Normal NORMAL: NEGATIVE [facility] Comment on above: Performed By: #### 2 19613 #### [facility],[address] [place] [address] 21877 Clarity (U) clear Normal NORMAL: CLEAR [facility] Comment on above: Performed By: #### 2 34021 #### [facility],[address] [place], [place] [phone] Color (U) p.yel Normal NORMAL: YELLOW [facility] Comment on above: Performed By: #### 2 65708 #### [facility],[address] [place], [place] [phone] Glucose [Mass/Vol] NORM Normal NORMAL: NORMAL [facility] Comment on above: Performed By: #### 2 29321 #### [facility],[address] [place], [place] [phone] Ketone Negative Normal NORMAL: NEGATIVE [facility] Comment on above: Performed By: #### 2 73862 #### [facility],[address] [place], [place] [phone] Microscopic NOT Normal [facility] Comment on above: Performed By: #### 2 91107 #### [facility],[address] [place] [address] 05228 Nitrite Ql (U) Negative Normal NORMAL: NEGATIVE [facility] Comment on above: Performed By: #### 2 00039 #### [facility],[address] [place] [address] 05847 pH (Bld) 8 Normal NORMAL: 5.0-8.0 [facility] Comment on above: Performed By: #### 2 28573 #### [facility],[address] [place] [address] 56478 Protein (U) [Mass/Vol] Negative Normal JENN L: NEGATIVE [facility] Comment on above: Performed By: #### 2 80430 #### [facility],[address] [place] [address] Sp [place] 1.010 Normal NORMAL: 1.010-1.030 [facility] Comment on above: Performed By: #### 2 59113 #### [facility],[address] [place] [address] Specimen type Nom (Spec) Clean catch Normal [facility] Comment on above: Performed By: #### 2 64161 #### [facility],[address] [place] [address] Urobilinog NORM Normal NORMAL: NORMAL [facility] Comment on above: Performed By: #### 2 16028 #### [place] [address] WBC (Bld) [#/Vol] Negative Normal NORMAL: NEGATIVE [facility] Comment on above: Performed By: #### 2 10411 #### [place] [address] URINE CREATININE AND PROTEIN RATIOon 08-06-2019 CREATININE UR 35.5 mg/dl Normal [facility] Comment on above: Performed By: #### 2 16598 #### [place] [address] PC RATIO 0.11 mg/dL Normal 0.00 - 10.00 [facility] Comment on above: Performed By: #### 2 10222 #### [place] [phone] Protein (U) [Mass/Vol] mg/dL Normal 0.00 - 10.00 [facility] Comment on above: Performed By: #### 2 60664 #### [place] [phone] Ammoniaon 03-19-2019 Ammonia mass conc (P) 34 umol/L Normal 16-60 [facility] Comment on above: Performed By: #### L ITH #### [facility] [address] [place] [address] Basic Metabolic Panelon 05-0 Anion gap molar conc 13 mmol/L Normal 9-15 [facility] Comment on above: Result Comment: Effe ctive: 12/21/2018 New reference range for this analyte has been established. Performed By: #### L ITH #### [facility] [address] [place] [address] Calcium mass conc 8.8 mg/dL Normal 8.5-9.9 [facility] Comment on above: Result Comment: Effe ctive: 12/21/2018 New reference range for this analyte has been established. Performed By: #### L ITH #### [facility] [address] [place] [address] Chloride molar conc 106 mmol/L Normal 95-107 [facility] Comment on above: Result Comment: Effe ctive: 12/21/2018 New reference range for this analyte has been established. Performed By: #### L ITH #### [facility] [address] [place] [address] CO2 molar conc 22 mmol/L Normal 20-31 [facility] Comment on above: Result Comment: Effe ctive: 12/21/2018 New reference range for this analyte has been established. Performed By: #### L ITH #### [facility] [address] [place] [address] Creatinine mass conc 1.78 mg/dL Critically high 0.70-1.20 [facility] Comment on above: Performed By: #### L ITH #### [facility] [address] [place] [address] GFR/1.73 sq M predicted among blacks MDRD vol rate/area (S/P/Bld) 48.1 mL/min/{1.73_m2} Low >60 [facility] Comment on above: Result Comment: >60 mL/min/1.73m2 EGFR, calc. for ages 18 and older using the MDRD formula (not corrected for weight), is valid for stable renal function. Performed By: #### L ITH #### [facility] [address] [place] [address] GFR/1.73 sq M.predicted MDRD vol rate/area 39.8 mL/min/{1.73_m2} Low >60 [facility] Comment on above: Result Comment: >60 mL/min/1.73m2 EGFR, calc. for ages 18 and older using the MDRD formula (not corrected for weight), is valid for stable renal function. Performed By: #### L ITH #### [facility] [address] [place] [address] Glucose mass conc 84 mg/dL Normal 70-99 [facility] Comment on above: Result Comment: Effe ctive: 12/21/2018 New reference range for this analyte has been established. Performed By: #### L ITH #### [facility] [address] [place] [address] Potassium molar conc 4.4 mmol/L Normal 3.4-4.9 [facility] Comment on above: Result Comment: Effe ctive: 12/21/2018 New reference range for this analyte has been established. Performed By: #### L ITH #### [facility] [address] [place] [address] Sodium molar conc 141 mmol/L Normal 135-144 [facility] Comment on above: Result Comment: Effe ctive: 12/21/2018 New reference range for this analyte has been established. Performed By: #### L ITH #### [facility] [address] [place] [address] Urea nitrogen mass conc 25 mg/dL Critically high 6-20 [facility] Comment on above: Performed By: #### L ITH #### [facility] [address] [place] [address] Valproic Acid /Depakene Leve rahul 03-19-2019 Protein mass conc 62.5 ug/mL Normal 50.0-100.0 [facility] Comment on above: Performed By: #### L ITH #### [facility] [address] [place] [address] Basic Metabolic Panelon 05-0 Anion gap molar conc 14 mmol/L Normal 9-15 [facility] Comment on above: Result Comment: Effe ctive: 12/21/2018 New reference range for this analyte has been established. Performed By: #### L ITH #### [facility] [address] [place] [address] Calcium mass conc 9.1 mg/dL Normal 8.5-9.9 [facility] Comment on above: Result Comment: Effe ctive: 12/21/2018 New reference range for this analyte has been established. Performed By: #### L ITH #### [facility] [address] [place] [address] Chloride molar conc 107 mmol/L Normal 95-107 [facility] Comment on above: Result Comment: Effe ctive: 12/21/2018 New reference range for this analyte has been established. Performed By: #### L ITH #### [facility] [address] [place] [address] CO2 molar conc 22 mmol/L Normal 20-31 [facility] Comment on above: Result Comment: Effe ctive: 12/21/2018 New reference range for this analyte has been established. Performed By: #### L ITH #### [facility] [address] [place] [address] Creatinine mass conc 2.32 mg/dL Critically high 0.70-1.20 [facility] Comment on above: Performed By: #### L ITH #### [facility] [address] [place] [address] GFR/1.73 sq M predicted among blacks MDRD vol rate/area (S/P/Bld) 35.4 mL/min/{1.73_m2} Low >60 [facility] Comment on above: Result Comment: >60 mL/min/1.73m2 EGFR, calc. for ages 18 and older using the MDRD formula (not corrected for weight), is valid for stable renal function. Performed By: #### L ITH #### [facility] [address] [place] [address] GFR/1.73 sq M.predicted MDRD vol rate/area 29.3 mL/min/{1.73_m2} Low >60 [facility] Comment on above: Result Comment: >60 mL/min/1.73m2 EGFR, calc. for ages 18 and older using the MDRD formula (not corrected for weight), is valid for stable renal function. Performed By: #### L ITH #### [facility] [address] [place] [address] Glucose mass conc 97 mg/dL Normal 70-99 [facility] Comment on above: Result Comment: Effe ctive: 12/21/2018 New reference range for this analyte has been established. Performed By: #### L ITH #### [facility] [address] [place] [address] Potassium molar conc 4.5 mmol/L Normal 3.4-4.9 [facility] Comment on above: Result Comment: Effe ctive: 12/21/2018 New reference range for this analyte has been established. Performed By: #### L ITH #### [facility] [address] [place] [address] Sodium molar conc 143 mmol/L Normal 135-144 [facility] Comment on above: Result Comment: Effe ctive: 12/21/2018 New reference range for this analyte has been established. Performed By: #### L ITH #### [facility] [address] [place] [address] Urea nitrogen mass conc 29 mg/dL Critically high 6-20 [facility] Comment on above: Performed By: #### L ITH #### [facility] [address] [place] [address] Basic Metabolic Panelon 05-0 Anion gap molar conc 10 mmol/L Normal 9-15 [facility] Comment on above: Result Comment: Effe ctive: 12/21/2018 New reference range for this analyte has been established. Performed By: #### L ITH #### [facility] [address] [place] [address] Calcium mass conc 8.7 mg/dL Normal 8.5-9.9 [facility] Comment on above: Result Comment: Effe ctive: 12/21/2018 New reference range for this analyte has been established. Performed By: #### L ITH #### [facility] [address] [place] [address] Chloride molar conc 109 mmol/L Critically high 95-107 [facility] Comment on above: Result Comment: Effe ctive: 12/21/2018 New reference range for this analyte has been established. Performed By: #### L ITH #### [facility] [address] [place] [address] CO2 molar conc 24 mmol/L Normal 20-31 [facility] Comment on above: Result Comment: Effe ctive: 12/21/2018 New reference range for this analyte has been established. Performed By: #### L ITH #### [facility] [address] [place] [address] Creatinine mass conc 1.77 mg/dL Critically high 0.70-1.20 [facility] Comment on above: Performed By: #### L ITH #### [facility] [address] [place] [address] GFR/1.73 sq M predicted among blacks MDRD vol rate/area (S/P/Bld) 48.4 mL/min/{1.73_m2} Low >60 [facility] Comment on above: Result Comment: >60 mL/min/1.73m2 EGFR, calc. for ages 18 and older using the MDRD formula (not corrected for weight), is valid for stable renal function. Performed By: #### L ITH #### [facility] [address] [place] [address] GFR/1.73 sq M.predicted MDRD vol rate/area 40.0 mL/min/{1.73_m2} Low >60 [facility] Comment on above: Result Comment: >60 mL/min/1.73m2 EGFR, calc. for ages 18 and older using the MDRD formula (not corrected for weight), is valid for stable renal function. Performed By: #### L ITH #### [facility] [address] [place] [address] Glucose mass conc 95 mg/dL Normal 70-99 [facility] Comment on above: Result Comment: Effe ctive: 12/21/2018 New reference range for this analyte has been established. Performed By: #### L ITH #### [facility] [address] [place] [address] Potassium molar conc 4.8 mmol/L Normal 3.4-4.9 [facility] Comment on above: Result Comment: Effe ctive: 12/21/2018 New reference range for this analyte has been established. Performed By: #### L ITH #### [facility] [address] [place] [address] Sodium molar conc 143 mmol/L Normal 135-144 [facility] Comment on above: Result Comment: Effe ctive: 12/21/2018 New reference range for this analyte has been established. Performed By: #### L ITH #### [facility] [address] [place] [address] Urea nitrogen mass conc 25 mg/dL Critically high 6-20 [facility] Comment on above: Performed By: #### L ITH #### [facility] [address] [place] [address] Ammoniaon 03-12-2019 Ammonia mass conc (P) 20 umol/L Normal 16-60 [facility] Comment on above: Performed By: #### N H3 #### [facility] [address] [place] [address] Basic Metabolic Panelon 04- Anion gap molar conc 14 mmol/L Normal 9-15 [facility] Comment on above: Result Comment: Effe ctive: 12/21/2018 New reference range for this analyte has been established. Performed By: #### L ITH #### [facility] [address] [place] [address] Calcium mass conc 9.1 mg/dL Normal 8.5-9.9 [facility] Comment on above: Result Comment: Effe ctive: 12/21/2018 New reference range for this analyte has been established. Performed By: #### L ITH #### [facility] [address] [place] [address] Chloride molar conc 109 mmol/L Critically high 95-107 [facility] Comment on above: Result Comment: Effe ctive: 12/21/2018 New reference range for this analyte has been established. Performed By: #### L ITH #### [facility] [address] [place] [address] CO2 molar conc 24 mmol/L Normal 20-31 [facility] Comment on above: Result Comment: Effe ctive: 12/21/2018 New reference range for this analyte has been established. Performed By: #### L ITH #### [facility] [address] [place] [address] Creatinine mass conc 1.94 mg/dL Critically high 0.70-1.20 [facility] Comment on above: Performed By: #### L ITH #### [facility] [address] [place] [address] GFR/1.73 sq M predicted among blacks MDRD vol rate/area (S/P/Bld) 43.6 mL/min/{1.73_m2} Low >60 [facility] Comment on above: Result Comment: >60 mL/min/1.73m2 EGFR, calc. for ages 18 and older using the MDRD formula (not corrected for weight), is valid for stable renal function. Performed By: #### L ITH #### [facility] [address] [place] [address] GFR/1.73 sq M.predicted MDRD vol rate/area 36.0 mL/min/{1.73_m2} Low >60 [facility] Comment on above: Result Comment: >60 mL/min/1.73m2 EGFR, calc. for ages 18 and older using the MDRD formula (not corrected for weight), is valid for stable renal function. Performed By: #### L ITH #### [facility] [address] [place] [address] Glucose mass conc 90 mg/dL Normal 70-99 [facility] Comment on above: Result Comment: Effe ctive: 12/21/2018 New reference range for this analyte has been established. Performed By: #### L ITH #### [facility] [address] [place] [address] Potassium molar conc 4.5 mmol/L Normal 3.4-4.9 [facility] Comment on above: Result Comment: Effe ctive: 12/21/2018 New reference range for this analyte has been established. Performed By: #### L ITH #### [facility] [address] [place] [address] Sodium molar conc 147 mmol/L Critically high 135-144 [facility] Comment on above: Result Comment: Effe ctive: 12/21/2018 New reference range for this analyte has been established. Performed By: #### L ITH #### [facility] [address] [place] [address] Urea nitrogen mass conc 27 mg/dL Critically high - [facility] Comment on above: Performed By: #### L ITH #### [facility] [address] [place] [address] [place] Levelon 03-12-2019 [place] molar conc 0.8 mmol/L Normal 0.6-1.2 [facility] Comment on above: Performed By: #### L ITH #### [facility] [address] [place] [address] Valproic Acid /Depakene Leve rahul 03-12-2019 Protein mass conc 70.6 ug/mL Normal 50.0-100.0 [facility] Comment on above: Performed By: #### L ITH #### [facility] [address] [place] [address] Basic Metabolic Panelon - Anion gap molar conc 13 mmol/L Normal 9-15 [facility] Comment on above: Result Comment: Effe ctive: 12/21/2018 New reference range for this analyte has been established. Performed By: #### B MP #### [facility] [address] [place] [address] Calcium mass conc 8.9 mg/dL Normal 8.5-9.9 [facility] Comment on above: Result Comment: Effe ctive: 12/21/2018 New reference range for this analyte has been established. Performed By: #### B MP #### [facility] [address] [place] [address] Chloride molar conc 108 mmol/L Critically high 95-107 [facility] Comment on above: Result Comment: Effe ctive: 12/21/2018 New reference range for this analyte has been established. Performed By: #### B MP #### [facility] [address] [place] [address] CO2 molar conc 23 mmol/L Normal 20-31 [facility] Comment on above: Result Comment: Effe ctive: 12/21/2018 New reference range for this analyte has been established. Performed By: #### B MP #### [facility] [address] [place] [address] Creatinine mass conc 1.82 mg/dL Critically high 0.70-1.20 [facility] Comment on above: Performed By: #### B MP #### [facility] [address] [place] [address] GFR/1.73 sq M predicted among blacks MDRD vol rate/area (S/P/Bld) 46.9 mL/min/{1.73_m2} Low >60 [facility] Comment on above: Result Comment: >60 mL/min/1.73m2 EGFR, calc. for ages 18 and older using the MDRD formula (not corrected for weight), is valid for stable renal function. Performed By: #### B MP #### [facility] [address] [place] [address] GFR/1.73 sq M.predicted MDRD vol rate/area 38.8 mL/min/{1.73_m2} Low >60 [facility] Comment on above: Result Comment: >60 mL/min/1.73m2 EGFR, calc. for ages 18 and older using the MDRD formula (not corrected for weight), is valid for stable renal function. Performed By: #### B MP #### [facility] [address] [place] [address] Glucose mass conc 82 mg/dL Normal 70-99 [facility] Comment on above: Result Comment: Effe ctive: 12/21/2018 New reference range for this analyte has been established. Performed By: #### B MP #### [facility] [address] [place] [address] Potassium molar conc 4.2 mmol/L Normal 3.4-4.9 [facility] Comment on above: Result Comment: Effe ctive: 12/21/2018 New reference range for this analyte has been established. Performed By: #### B MP #### [facility] [address] [place] [address] Sodium molar conc 144 mmol/L Normal 135-144 [facility] Comment on above: Result Comment: Effe ctive: 12/21/2018 New reference range for this analyte has been established. Performed By: #### B MP #### [facility] [address] [place] [address] Urea nitrogen mass conc 28 mg/dL Critically high 6-20 [facility] Comment on above: Performed By: #### B MP #### [facility] [address] [place] [address] Lipid Panelon 03-09-2019 Cholesterol in HDL mass [...] IPID #### [facility] [address] [place] [address] Cholesterol in LDL mass conc 83 mg/dL Normal 0-129 [facility] Comment on above: Result Comment: ATP III LDL Classification is Optimal. Performed By: #### L IPID #### [facility] [address] [place] [address] Cholesterol mass conc 160 mg/dL Normal 0-199 [facility] Comment on above: Result Comment: ATP III Cholesterol classification is Desirable. Performed By: #### L IPID #### [facility] [address] [place] [address] Triglyceride mass conc 234 mg/dL Critically high 0-150 [facility] Comment on above: Result Comment: ATP III Triglycerides Classification is High. Effective: 12/21/2018 New reference range for this analyte has been established. Performed By: #### L IPID #### [facility] [address] [place] [address] Ammoniaon 03-04-2019 Ammonia mass conc (P) 35 umol/L Normal 16-60 [facility] Comment on above: Performed By: #### N H3 #### [facility] [address] [place] [address] [place] Levelon 03-04-2019 [place] molar conc 0.7 mmol/L Normal 0.6-1.2 [facility] Comment on above: Performed By: #### L ITH #### [facility] [address] [place] [address] TSH w/out Reflexon 9 Thyrotropin Qn 2.880 uIU/mL Normal 0.440-3.86 [facility] Comment on above: Result Comment: Effe ctive: 12/21/2018 New reference range for this analyte has been established. Performed By: #### T SH #### [facility] [address] [place] [address] VITAMIN Don 03-04-2019 VITAMIN D 33.1 ng/mL Normal 30.0-100.0 [facility] Comment on above: Result Comment: (30- 100 ng/mL) Optimum Level This assay accurately quantifies the sum of vitamin D3, 25-Hydroxy and vitamin D2, 25-Hyroxy. Performed By: #### V ITD #### [facility] [address] [place] [address] Valproic Acid /Depakene Leve rahul 03-04-2019 Protein mass conc 25.8 ug/mL Low 50.0-100.0 [facility] Comment on above: Performed By: #### V ALPR #### [facility] [address] [place] [address] Vitamin B12 and Folateon Cobalamin (Vitamin B12) mass conc 340 pg/mL Normal 232-1245 [facility] Comment on above: Performed By: #### B 12FO #### [facility] [address] [place] [address] Folate 10.2 ng/mL Normal 7.3-26.1 [facility] Comment on above: Result Comment: As o f 16, the methodology has changed. Results from this methodology should not be compared with results from previous methodology. Performed By: #### B 12FO #### [facility] [address] [place] [address] Creatinineon 06-06-2018 Creatinine 1.93 mg/dL High 0.58-0.96 [facility] Comment on above: Performed By: #### C RET1, TSH, LI ####[facility] [address] [place], [place] [id number] eGFR (non-black) [address] [facility] Reference Lab Comment on above: Performed By: #### C RET1, TSH, LI ####[facility] [id number] [place], [place] [id number] eGFR- Amer. 33 Normal [facility] Reference [facility] Comment on above: Performed By: #### C RET1, TSH, LI ####[facility] [id number] [place], [place] [id number] Lithiumon 06-06-2018 [place] 0.8 mmol/L Normal 0.6-1.2 [facility] Reference Lab Comment on above: Performed By: #### C RET1, TSH, LI ####[facility] [id number] [place], [place] [id number] TSHon 06-06-2018 Thyroid stimulating hormone (TSH) 2.350 uU/mL Normal 0.400-5.500 [facility] Reference Lab Comment on above: Performed By: #### C RET1, TSH, LI ####[facility] [id number] [place], [place] [id number] Culture, urine Bacteria identified Cx Nom (U) Culture exhibits no growth. [facility] Work Phone: Bacteria identified Cx Nom (U) Positive [facility] Work Phone: Bacteria identified Cx Nom (U) Actinomyces turicensis [facility] Work Phone: Bacteria identified Cx Nom (U) Streptococcus mitis [facility] Work Phone: Vital Signs Date Time Vital Sign Value Performing Clinician Facility 02-26-2025 11:40-0400 Diastolic blood pressure 76 mm[Hg] [facility] Work Phone: [facility] 02-26-2025 11:40-0400 Heart rate 75 /min Chair Hosp Work Phone: [facility] 02-26-2025 11:40-0400 Respiratory rate 18 /min Chair [facility] Work Phone: [facility] 02-26-2025 11:40-0400 SaO2% (BldA) [Mass fraction] 96 % Chair [facility] Work Phone: [facility] 02-26-2025 11:40-0400 Systolic blood pressure 122 mm[Hg] Chair [facility]osp Work Phone: [facility] 02-26-2025 09:00-0400 Body temperature 98.6 [degF] Chair [facility] Work Phone: [facility] 02-12-2025 14:04-0400 Diastolic blood pressure 55 mm[Hg] Chair [facility] Work Phone: [facility] 02-12-2025 14:04-0400 Heart rate 78 /min Chair [facility] Work Phone: [facility] 02-12-2025 14:04-0400 Respiratory rate 18 /min Chair H[facility] Work Phone: [facility] 02-12-2025 14:04-0400 SaO2% (BldA) [Mass fraction] 95 % [facility] Work Phone: [facility] 02-12-2025 14:04-0400 Systolic blood pressure 128 mm[Hg] Chair Hosp Work Phone: [facility] 02-12-2025 09:00-0400 Body temperature 98.6 [degF] Chair [facility] Work Phone: [facility] 09-14-2024 08:49-0400 Body height 176.3 cm Dorota Smith MD Work Phone: [facility] 09-14-2024 08:49-0400 Body mass index (BMI) [Ratio] 39.27 kg/m2 Dorota Smith MD Work Phone: [facility] 09-14-2024 08:49-0400 Body temperature 97.3 [degF] Dorota Smith MD Work Phone: [facility] 09-14-2024 08:49-0400 Body weight 122.05 kg Dorota Smith MD Work Phone: [facility] 09-14-2024 08:49-0400 Diastolic blood pressure 65 mm[Hg] Dorota Smith MD Work Phone: [facility] 09-14-2024 08:49-0400 Heart rate 106 /min Dorota Smith MD Work Phone: [facility] 09-14-2024 08:49-0400 Respiratory rate 14 /min Dorota Smith MD Work Phone: [facility] 09-14-2024 08:49-0400 Systolic blood pressure 104 mm[Hg] Dorota Smith MD Work Phone: [facility] 08-09-2024 10:45-0400 Diastolic blood pressure 68 mm[Hg] Chair [facility] Work Phone: [facility] 08-09-2024 10:45-0400 Heart rate 82 /min Chair [facility] Work Phone: [facility] 08-09-2024 10:45-0400 Respiratory rate 18 /min Chair [facility] Work Phone: [facility] 08-09-2024 10:45-0400 SaO2% (BldA) [Mass fraction] 96 % [facility] Work Phone: [facility] 08-09-2024 10:45-0400 Systolic blood pressure 125 mm[Hg] Chair [facility] Work Phone: [facility] 08-09-2024 07:00-0400 Body temperature 98.4 [degF] Chair [facility] Work Phone: [facility] 07-17-2024 11:09-0400 Body height 182.9 cm Anthony Olivares MD Work Phone: [facility] 07-17-2024 11:09-0400 Body mass index (BMI) [Ratio] 36.48 kg/m2 Anthony Olivares MD Work Phone: [facility] 07-17-2024 11:09-0400 Body weight 122 kg Anthony Olivares MD Work Phone: [facility] 07-17-2024 11:09-0400 Diastolic blood pressure 73 mm[Hg] Anthony Olivares MD Work Phone: [facility] 07-17-2024 11:09-0400 Heart rate 90 /min Anthony Olivares MD Work Phone: [facility] 07-17-2024 11:09-0400 Systolic blood pressure 106 mm[Hg] Anthony Olivares MD Work Phone: [facility] 01-26-2024 12:00-0400 Diastolic blood pressure 62 mm[Hg] Chair [facility] Work Phone: [facility] 01-26-2024 12:00-0400 Heart rate 97 /min Chair [facility] Work Phone: [facility] 01-26-2024 12:00-0400 Respiratory rate 18 /min Chair [facility] Work Phone: [facility] 01-26-2024 12:00-0400 SaO2% (BldA) [Mass fraction] 96 % Chair [facility] Work Phone: [facility] 01-26-2024 12:00-0400 Systolic blood pressure 110 mm[Hg] Chair Hosp Work Phone: [facility] 01-26-2024 07:05-0400 Body temperature 98.6 [degF] Chair Hosp Work Phone: [facility] 12-20-2023 09:51-0500 Body height 177.8 cm Anthony Olivares MD Work Phone: [facility] 12-20-2023 09:51-0500 Body temperature 97.7 [degF] Anthony Olivares MD Work Phone: [facility] 12-20-2023 09:51-0500 Body weight 126.4 kg Anthony Olivares MD Work Phone: [facility] 12-20-2023 09:51-0500 Diastolic blood pressure 68 mm[Hg] Anthony Olivares MD Work Phone: [facility] 12-20-2023 09:51-0500 Heart rate 116 /min Anthony Olivares MD Work Phone: [facility] 12-20-2023 09:51-0500 Systolic blood pressure 97 mm[Hg] Anthony Olivares MD Work Phone: [facility] 02-25-2023 11:04-0400 Body height 171.5 cm Luz Daniel MD Work Phone: [facility] 02-25-2023 11:04-0400 Body temperature 97.9 [degF] Luz Daniel MD Work Phone: [facility] 02-25-2023 11:04-0400 Body weight 146.69 kg Luz Daniel MD Work Phone: [facility] 02-25-2023 11:04-0400 Diastolic blood pressure 86 mm[Hg] Luz Daniel MD Work Phone: [facility] 02-25-2023 11:04-0400 Heart rate 93 /min Luz Daniel MD Work Phone: [facility] 02-25-2023 11:04-0400 Systolic blood pressure 125 mm[Hg] Luz Daniel MD Work Phone: [facility] 11-03-2022 13:05-0500 Body temperature 97.2 [degF] Douglaski 2 Work Phone: [facility] 11-03-2022 13:05-0500 Diastolic blood pressure 78 mm[Hg] Ashleigh 2 Work Phone: [facility] 11-03-2022 13:05-0500 Heart rate 89 /min Guki 2 Work Phone: [facility] 11-03-2022 13:05-0500 Respiratory rate 18 /min Dougl[place]i 2 Work Phone: [facility] 11-03-2022 13:05-0500 SaO2% (BldA) [Mass fraction] 95 % Douglaski 2 Work Phone: [facility] 11-03-2022 13:05-0500 Systolic blood pressure 124 mm[Hg] Dougl[place]i 2 Work Phone: [facility] 11-03-2022 07:52-0500 Body weight 144.74 kg Douglaski 2 Work Phone: [facility] 08-27-2022 10:46-0400 Body height 171.5 cm Luz Daniel MD Work Phone: [facility] 08-27-2022 10:46-0400 Body temperature 98.29 [degF] Luz Daniel MD Work Phone: [facility] 08-27-2022 10:46-0400 Body weight 146.06 kg Luz Daniel MD Work Phone: [facility] 08-27-2022 10:46-0400 Diastolic blood pressure 95 mm[Hg] Luz Daniel MD Work Phone: [facility] 08-27-2022 10:46-0400 Heart rate 109 /min Luz Daniel MD Work Phone: [facility] 08-27-2022 10:46-0400 Systolic blood pressure 132 mm[Hg] Luz Daniel MD Work Phone: [facility] 07-27-2022 15:53-0400 Body height 176.5 cm Anthony Olivares MD Work Phone: [facility] 07-27-2022 15:53-0400 Body weight 142.88 kg Anthony Olivares MD Work Phone: [facility] 07-27-2022 15:53-0400 Diastolic blood pressure 85 mm[Hg] Anthony Olivares MD Work Phone: [facility] 07-27-2022 15:53-0400 Heart rate 94 /min Anthony Olivares MD Work Phone: [facility] 07-27-2022 15:53-0400 Systolic blood pressure 128 mm[Hg] Anthony Olivares MD Work Phone: [facility] 05-05-2022 13:15-0400 Body temperature 97.2 [degF] Kidney 1 [facility] 05-05-2022 13:15-0400 Diastolic blood pressure 91 mm[Hg] Kidney 1 [facility] 05-05-2022 13:15-0400 Heart rate 116 /min Kidney 1 [facility] 05-05-2022 13:15-0400 Systolic blood pressure 157 mm[Hg] Kidney 1 [facility] 05-05-2022 07:40-0400 SaO2% (BldA) [Mass fraction] 95 % Kidney 1 [facility] 05-05-2022 07:36-0400 Body weight 140.57 kg Kidney 1 [facility] 11-04-2020 15:52-0500 Body Temperature 97.2 [degF] [facility] 11-04-2020 15:52-0500 BP Diastolic 74 mm[Hg] [facility] [place] 11-04-2020 15:52-0500 BP Systolic 113 mm[Hg] [facility] [place] 11-04-2020 15:52-0500 Pulse (Heart Rate) 92 /min [facility] [place] 11-04-2020 15:52-0500 Pulse Oximetry 96 % [facility] [place] 11-04-2020 15:52-0500 Respiratory Rate 17 /min [facility], [place] 11-04-2020 05:31-0500 Body weight 114.31 kg [facility] [place], [place] Encounters Encounter Date Encounter Type Care Provider Facility Start: 08-28-2025 ambulatory ALFREDO PHIPPS Facility:[facility] Start: 08-27-2025 ambulatory Adam CHANDLER Fac ility:[facility] Start: 08-15-2025 End: 08-15-2025 ambulatory ANTHONY OLIVARES Facility:[facility] Start: 08-14-2025 ambulatory Alfredo CHANDLER Faci lity:[facility] Start: 08-14-2025 Registered Referred Alfredo Phipps - [facility] [employer] Start: 08-09-2025 Registered Referred Alfredo Phipps - [facility] [employer] Start: 08-09-2025 End: 08-09-2025 ambulatory Alfredo CHANDLER Facility:[facility] Start: 08-02-2025 Registered Referred Adam Ferraro -[employer] Start: 08-02-2025 End: 08-02-2025 ambulatory Adam CHANDLER Facility:[facility] Start: 07-29-2025 Registered Referred Alfredo Phipps - [facility] Start: 07-29-2025 End: 07-29-2025 ambulatory Alfredo CHANDLER Facility:[facility] Start: 07-02-2025 Registered Referred Lasha alicia MD -[facility] [employer] Start: 07-02-2025 End: 07-02-2025 ambulatory Lasha CHANDLER Facility:[facility] Start: 07-01-2025 Registered Referred Adam Ferraro -[facility] [employer] Start: 07-01-2025 End: 07-01-2025 ambulatory Adam CHANDLER Facility:[facility] Start: 06-27-2025 ambulatory Adam Wandamele CHANDLER Fac ility:[facility] Start: 06-27-2025 Registered Referred Adam Ferraro -[facility] [employer] Start: 06-20-2025 Registered Referred Alfredo Phipps - [employer] Start: 06-20-2025 End: 06-20-2025 ambulatory Alfredo CHANDLER Facility:[facility] Start: 06-19-2025 Registered Referred Alfredo Phipps - [facility] [employer] Start: 06-19-2025 End: 06-19-2025 ambulatory Elgin Bal Facility:[facility] Start: 06-06-2025 End: 06-06-2025 ambulatory Julieta Luo RN Kidney Medicine [facility] Start: 06-05-2025 Registered Referred Adam Ferraro -[employer] Start: 06-05-2025 End: 06-05-2025 ambulatory Adam CHANDLER Facility:[facility] Start: 05-28-2025 End: 05-28-[address] Elgin Bal MD Work Phone: -[facility] [employer] Start: 05-28-2025 End: 05-28-2025 Departed Referred Adam Ferraro -[employer] Start: 05-28-2025 Registered Referred Adam Ferraro -[facility] [employer] Start: 05-28-2025 End: 05-28-2025 ambulatory Adam CHANDLER Facility:[facility] Start: 05-26-2025 Registered Referred Adam Ferraro -[facility] [employer] Start: 05-26-2025 End: 05-26-2025 ambulatory Adam CHANDLER Facility:[facility] Start: 05-24-2025 ambulatory Adam CHANDLER Fac ility:[facility] Start: 05-24-2025 Registered Referred Adam Ferraro -[employer] Start: 05-23-2025 End: 05-23-2025 Telemedicine consultation with patient Anthony Olivares MD Work Phone: [facility] [place] Start: 05-23-2025 End: 05-27-2025 ambulatory Anthony Olivares MD Work Phone: [facility] [place] Comment on above: 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 Elgin Bal MD Work Phone: -[employer] Start: 04-26-2025 End: 04-26-2025 Departed Referred Alfredo Phipps -[facility] [employer] Start: 04-26-2025 Registered Referred Alfredo Phipps - [employer] Start: 04-26-2025 End: 04-26-2025 ambulatory Elgin Bal Facility:[facility] Start: 04-24-2025 ambulatory Adam CHANDLER Fac ility:[facility] Start: 04-24-2025 Registered Referred Adam Ferraro -[employer] Start: 04-01-2025 End: 04-01-[address] Elgin Bal MD Work Phone: -[facility] [employer] Start: 04-01-2025 End: 04-01-2025 Departed Referred Adam Ferraro -[employer] Start: 04-01-2025 End: 04-01-2025 ambulatory Adam CHANDLER Facility:[facility] Start: 03-27-2025 ambulatory Alfredo CHANDLER Faci lity:[facility] Start: 03-27-2025 Registered Referred Alfredo Phipps - [employer] Start: 03-04-2025 End: 03-04-[address] Elgin Bal MD Work Phone: [facility] Work Phone: Start: 03-04-2025 End: 03-04-2025 Departed Referred Adam Ferraro -[employer] Start: 03-04-2025 Registered Referred Adam Ferraro -[employer] Start: 03-04-2025 End: 03-04-2025 ambulatory Adam Wandamele RAMESH Facility:[facility] Start: 02-27-2025 End: 02-27-[address] Elgin Bal MD Work Phone: [facility] Work Phone: Start: 02-27-2025 End: 02-27-2025 Departed Referred Alfredo Phipps -[employer] Start: 02-27-2025 Registered Referred Alfredo Phipps - [employer] Start: 02-26-2025 End: 02-27-2025 ambulatory ALFREDO PHIPPS Facility:[facility] Start: 02-26-2025 End: 02-26-2025 Subsequent hospital visit by physician Chair [facility] Work Phone: [facility] Start: 02-25-2025 End: 02-25-[address] Elgin Bal MD Work Phone: [facility] Work Phone: Start: 02-25-2025 End: 02-25-2025 Departed Referred Adam Ferraro -[employer] Start: 02-25-2025 Registered Referred Adam Ferraro -[employer] Start: 02-25-2025 End: 02-25-2025 ambulatory Adam Ferraro RAMESH Facility:[facility] Start: 02-12-2025 ambulatory ANTHONY Rivera ELISE Facility: [facility] Start: 02-12-2025 End: 02-12-2025 Subsequent hospital visit by physician Chair [facility] Work Phone: [facility] Start: 02-11-2025 End: 02-11-[address] Elgin Bal MD Work Phone: [facility] Work Phone: Start: 02-11-2025 End: 02-11-2025 Departed Referred Alfredo Wayros -[employer] Start: 02-11-2025 Registered Referred Alfredo Shultzsaros - [employer] Start: 02-11-2025 End: 02-11-2025 ambulatory Alfredo Wayshawna CHANDLER Facility:[facility] Start: 02-06-2025 End: 02-06-[address] Elgin Bal MD Work Phone: [facility] Work Phone: Start: 02-06-2025 End: 02-06-2025 Departed Referred Alfredo Wayros -[employer] Start: 02-06-2025 Registered Referred Alfredo Wayros - [employer] Start: 02-06-2025 End: 02-06-2025 ambulatory [facility] Facility:[facility] Start: 01-30-2025 End: 01-30-2025 Departed Referred Adam Ferraro -[employer] Start: 01-30-2025 End: 01-30-2025 Orders Only Anthony Olivares MD Work Phone: Kidney Medicine [facility] Start: 01-30-2025 Registered Referred Adam Ferraro -[employer] Start: 01-30-2025 End: 01-30-2025 ambulatory Adam CHANDLER Facility:[facility] Start: 01-25-2025 End: 01-25-[address] Elgin Bal MD Work Phone: [facility] Work Phone: Start: 01-25-2025 End: 01-25-2025 Departed Referred Adam Ferraro -[employer] Start: 01-25-2025 End: 01-25-2025 ambulatory [facility] Facility:[facility] Start: 01-03-2025 End: 01-03-[address] Elgin Bal MD Work Phone: [facility] Work Phone: Start: 01-03-2025 End: 01-03-2025 Departed Referred Adam Ferraro -[employer] Start: 01-03-2025 Registered Referred Adam Ferraro -[facility] [employer] Start: 01-02-2025 End: 01-03-[address] Elgin Bal MD Work Phone: [facility] Work Phone: Start: 01-02-2025 End: 01-02-2025 Departed Referred Adam Ferraro -[employer] Start: 01-02-2025 Registered Referred Daam Jasmine -[facility] [employer] Start: 01-02-2025 End: 01-02-2025 ambulatory [facility] Facility:[facility] Start: 12-28-2024 End: 12-28-[address] Elgin Bal MD Work Phone: [facility] Work Phone: Start: 12-28-2024 End: 12-28-2024 Departed Referred Adam Ferraro -[employer] Start: 12-28-2024 End: 12-28-2024 ambulatory [facility] Facility:[facility] Start: 11-27-2024 End: 11-27-2024 Departed Referred Adam Ferraro -[employer] Start: 11-27-2024 End: 11-27-2024 ambulatory Adam CHANDLER Facility:[facility] Start: 11-20-2024 End: 11-23-2024 ambulatory Anthony Olivares MD Work Phone: [facility] [place] Start: 11-15-2024 End: 11-15-2024 Departed Referred Adam Jasmine -[facility] [employer] Start: 11-15-2024 End: 11-15-2024 ambulatory Adam Ferraro OLS Facility:[facility] Start: 09-27-2024 End: 09-27-2024 Departed Referred Adam Jasmine -[employer] Start: 09-27-2024 End: 09-27-2024 ambulatory Adam Ferraro OLS Facility:[facility] Start: 09-14-2024 End: 09-14-2024 Patient encounter procedure Dorota Smith MD Work Phone: [facility] Comment on above: 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); Rash and nonspecific skin eruption; 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) Start: 09-14-2024 End: 09-14-2024 ambulatory ALFREDO IGNACIOLeonie GEMASHAWNA Facility:[facility] Start: 08-09-2024 End: 08-09-2024 Subsequent hospital visit by physician Chair [facility] Work Phone: [facility]fusion [facility] Comment on above: Rituximab Start: 07-17-2024 End: 07-20-2024 ambulatory Anthony Olivares MD Work Phone: [facility] Start: 07-17-2024 End: 07-17-2024 Patient encounter procedure Anthony Olivares MD Work Phone: [facility] Comment on above: 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); Stage 3b chronic kidney disease (HCC); Benign hypertension with chronic kidney disease Start: 05-21-2024 Telephone encounter Dorota hameed MD Work Phone: [facility] Comment on above: No [...] kidney disease Start: 02-03-2024 End: 02-03-2024 ambulatory [facility] Work Phone: Start: 02-03-2024 End: 02-03-2024 Departed Referred [facility] [employer] Start: 01-26-2024 End: 01-26-2024 Subsequent hospital visit by physician Chair [facility] Work Phone: [facility]fusion [facility] Comment on above: Rituximab Start: 01-06-2024 End: 01-06-2024 ambulatory [facility] Work Phone: Start: 01-06-2024 End: 01-06-2024 Departed Referred [facility] Start: 12-29-2023 Orders Only Babak Drummond RN [facility] Start: 12-27-2023 Orders Only Anthony Olivares MD Work Phone: Kidney Medicine [facility] Start: 12-23-2023 Telephone encounter Nuria noyola RN Kidney Medicine Comment on above: Appointment Start: 12-20-2023 ambulatory Anthony Olivares MD Work Phone: [facility] Start: 12-20-2023 End: 12-20-2023 Patient encounter procedure Anthony Olivares MD Work Phone: [facility]ney [facility] Comment on above: 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); Stage 3b chronic kidney disease (HCC); Benign hypertension with chronic kidney disease Start: 12-09-2023 End: 12-09-2023 ambulatory [facility] Work Phone: Start: 12-09-2023 End: 12-09-2023 Departed Referred [facility] [employer] Start: 11-16-2023 End: 11-16-2023 Departed Referred [facility] [employer] Start: 11-16-2023 Registered Referred [facility] [employer] Start: 11-11-2023 End: 11-11-2023 ambulatory [facility] Work Phone: Start: 11-11-2023 End: 11-11-2023 Departed Referred [facility] [employer] Start: 11-11-2023 [facility] [employer] Start: 10-27-2023 End: 10-27-2023 ambulatory [facility] Work Phone: Start: 10-27-2023 End: 10-27-2023 Departed Referred [facility] [employer] Start: 10-14-2023 End: 10-14-2023 ambulatory [facility] Work Phone: Start: 10-14-2023 End: 10-14-2023 [facility] [employer] Start: 09-27-2023 End: 09-27-2023 ambulatory [facility] Work Phone: Start: 09-27-2023 End: 09-27-2023 [facility] [employer] Start: 09-27-2023 [facility] Start: 09-16-2023 End: 09-16-2023 ambulatory [facility] Work Phone: Start: 09-16-2023 End: 09-16-2023 [facility] - [place] [facility] [employer] Start: 08-29-2023 Telephone encounter Dorota hameed MD Work Phone: [facility] Comment on above: Patient Update Start: 08-26-2023 Telephone encounter Luz Daniel MD Work Phone: [facility] Comment on above: NO SHOW Start: 08-19-2023 End: 08-19-2023 ambulatory [facility] Work Phone: Start: 08-19-2023 End: 08-19-2023 Departed Referred [facility] Start: 07-28-2023 End: 07-28-2023 [facility] Start: 07-28-2023 [facility] Start: 07-24-2023 [facility] Start: 07-22-2023 End: 07-22-2023 ambulatory [facility] Work Phone: Start: 07-22-2023 End: 07-22-2023 [facility] Start: 06-24-2023 End: 06-24-2023 ambulatory [facility] Work Phone: Start: 06-24-2023 End: 06-24-2023 [facility] Start: 06-24-2023 [facility] Start: 05-30-2023 End: 05-30-2023 ambulatory [facility] Work Phone: Start: 05-30-2023 End: 05-30-2023 [facility] Start: 05-30-2023 [facility] Start: 05-27-2023 End: 05-27-2023 ambulatory [facility] Work Phone: Start: 05-27-2023 End: 05-27-2023 [facility] Start: 05-27-2023 [facility] Start: 05-19-2023 End: 05-19-2023 ambulatory [facility] Work Phone: Start: 05-19-2023 End: 05-19-2023 [facility] Start: 05-19-2023 [facility] Start: 04-29-2023 End: 04-29-2023 ambulatory [facility] Work Phone: Start: 04-29-2023 End: 04-29-2023 [facility] Start: 04-29-2023 [facility] Start: 04-27-2023 End: 04-27-2023 ambulatory [facility] Work Phone: Start: 04-27-2023 End: 04-27-2023 [facility] Start: 04-04-2023 End: 04-04-2023 [facility]ed [facility] Start: 04-01-2023 End: 04-01-2023 Departed Referred [facility] Start: 03-04-2023 End: 03-04-2023 ambulatory [facility] Work Phone: Start: 03-04-2023 End: 03-04-2023 Departed [facility] Start: 02-25-2023 End: 02-25-2023 Patient encounter procedure Luz Daniel MD Work Phone: [facility] Comment on above: Rheumatoid arthritis involving both hands 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 rheumatoid factor (HCC) (Primary Dx); Granulomatosis with polyangiitis with renal involvement (HCC) Start: 02-25-2023 End: 02-25-2023 ambulatory [facility] Work Phone: Start: 02-25-2023 End: 02-25-2023 [facility]ed [facility] Start: 02-04-2023 End: 02-04-2023 ambulatory [facility] Work Phone: Start: 02-04-2023 End: 02-04-2023 Departed [facility] Start: 02-04-2023 [facility] Start: 01-25-2023 End: 01-25-2023 ambulatory [facility] Work Phone: Start: 01-25-2023 End: 01-25-2023 Departed [facility] Start: 01-25-2023 [facility] Start: 01-19-2023 End: 01-19-2023 Departed [facility] Start: 01-19-2023 [facility] Start: 01-07-2023 End: 01-07-2023 ambulatory [facility] Work Phone: Start: 01-07-2023 End: 01-07-2023 Departed [facility] Start: 01-07-2023 [facility] Start: 12-28-2022 End: 12-28-2022 ambulatory [facility] Work Phone: Start: 12-28-2022 End: 12-28-2022 Dep[facility]ed [facility] Start: 12-28-2022 [facility]istered [facility] Start: 12-15-2022 End: 12-15-2022 [facility] Start: 12-15-2022 [facility] Start: 12-10-2022 End: 12-10-2022 ambulatory [facility] Work Phone: Start: 12-10-2022 End: 12-10-2022 Departed [facility] Start: 11-17-2022 End: 11-17-2022 ambulatory [facility] Work Phone: Start: 11-17-2022 End: 11-17-2022 Departed [facility] Start: 11-17-2022 [facility]istered [facility] Start: 11-12-2022 End: 11-12-2022 [facility] Start: 11-12-2022 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) Start: 10-27-2022 End: 10-27-2022 ambulatory [facility] Work Phone: Start: 10-27-2022 End: 10-27-2022 Departed Referred [facility] Start: 10-27-2022 Registered Referred [facility] Start: 10-15-2022 End: 10-15-2022 Departed [facility]erred [facility] Start: 10-15-2022 Registered Referred [facility] Start: 09-27-2022 End: 09-27-2022 ambulatory [facility] Work Phone: Start: 09-27-2022 End: 09-27-2022 Departed [facility]erred [facility] Start: 09-27-2022 Registered Referred [facility] Start: 09-17-2022 End: 09-17-2022 ambulatory [facility] Work Phone: Start: 09-17-2022 End: 09-17-2022 Departed [facility]erred [facility] Start: 09-17-2022 Registered Referred [facility] Start: 08-27-2022 End: 08-27-2022 Patient encounter procedure Luz Daniel MD Work Phone: [facility] [place] Comment on above: Rheumatoid arthritis involving both hands 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 rheumatoid factor (HCC) (Primary Dx) Start: 08-27-2022 End: 08-27-2022 Departed Referred [facility] Start: 08-27-2022 Registered Referred [facility] Start: 08-23-2022 End: 08-23-2022 ambulatory [facility] Work Phone: Start: 08-23-2022 End: 08-23-2022 Departed Referred [facility] Start: 08-23-2022 [facility] Start: 08-12-2022 End: 08-12-2022 ambulatory [facility] Work Phone: Start: 08-12-2022 End: 08-12-2022 Departed Referred [facility] Start: 07-28-2022 End: 07-28-2022 ambulatory [facility] Work Phone: Start: 07-28-2022 End: 07-28-2022 Departed Referred [facility] Start: 07-28-2022 Registered Referred [facility] Start: 07-27-2022 End: 07-27-2022 Patient encounter procedure Anthony Olivares MD Work Phone: Kidney Medicine [facility] Comment on above: 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); Stage 3a chronic kidney disease (HCC) Start: 07-27-2022 ambulatory Anthony Olivares MD Work Phone: [facility] Start: 07-15-2022 End: 07-15-2022 ambulatory [facility] Work Phone: Start: 07-15-2022 End: 07-15-2022 Departed [facility]erred [facility] Start: 07-15-2022 [facility] Start: 06-28-2022 End: 06-28-2022 ambulatory [facility] Work Phone: Start: 06-28-2022 End: 06-28-2022 Departed Referred [facility] Start: 06-28-2022 [facility] Start: 06-17-2022 End: 06-17-2022 ambulatory [facility] Work Phone: Start: 06-17-2022 End: 06-17-2022 Departed Referred [facility] [employer] Start: 05-27-2022 End: 05-27-2022 Departed Referred [facility] [employer] Start: 05-20-2022 End: 05-20-2022 Departed Referred [facility] [employer] Start: 05-05-2022 Patient encounter procedure Anthony Olivares MD Work Phone: [facility] Main [place] Comment on above: Granulomatosis with polyangiitis with [...] (HCC) Start: 04-27-2022 End: 04-27-2022 Departed Referred [facility] Start: 04-27-2022 Registered Referred [facility] [employer] Start: 04-22-2022 End: 04-22-2022 Departed Referred [facility] [employer] Start: 04-22-2022 Registered Referred [facility] [employer] Start: 04-21-2022 End: 04-21-2022 Departed Referred [facility] [employer] Start: 04-21-2022 Registered Referred [facility] [employer] Start: 04-06-2022 End: 04-06-2022 Departed Referred [facility] [employer] Start: 04-06-2022 Registered Referred [facility] [employer] Start: 04-05-2022 End: 04-05-2022 Dep[facility]ed [facility] Start: 04-05-2022 [facility] Start: 04-02-2022 End: 04-02-2022 [facility] Start: 04-02-2022 [facility] Start: 03-30-2022 Orders Only Anthony Olivares MD Work Phone: Kidney Medicine [facility] Comment on above: Granulomatosis with polyangiitis, unspecified whether renal involvement (HCC) (Primary Dx) Start: 03-25-2022 End: 03-25-2022 [facility]ed [facility] Start: 03-25-2022 Registered [facility] Start: 03-19-2022 End: 03-19-2022 Departed [facility] Start: 03-19-2022 Registered [facility] [facility] Start: 02-25-2022 End: 02-25-2022 [facility] Start: 02-25-2022 Registered [facility] Start: 02-18-2022 End: 02-18-2022 [facility]ed [facility] Start: 01-28-2022 End: 01-28-2022 [facility] Start: 01-28-2022 Registered [facility] [facility] Start: 01-25-2022 End: 01-25-2022 [facility] Start: 01-25-2022 Registered [facility] Start: 01-04-2022 End: 01-04-2022 Dep[facility]ed [facility] Start: 01-04-2022 [facility] [facility] Start: 12-07-2021 End: 12-07-2021 Departed Referred [facility] [employer] Start: 12-03-2021 Registered Referred [facility] Start: 11-09-2021 Registered Referred [facility] [employer] [facility] Start: 11-05-2021 Registered Referred [facility] [employer] [facility] Start: 10-28-2020 End: 11-04-2020 Evaluation and management of inpatient [place] Work Phone: [facility] [employer] Comment on above: Pneumonia due to COV ID-19 virus (Primary Dx); Hypoxia; Hypokalemia; Stage 3 chronic kidney disease, unspecified whether stage 3a or 3b CKD Start: 11-14-2019 Encounter for genera l adult medical examination without abnormal findings [facility] Start: 11-14-2019 End: 08-05-2020 Patient encounter procedure [facility] Start: 08-06-2019 End: 08-06-2019 Patient encounter procedure HODA BROWNING [facility] Start: 10-21-2009 End: 01-29-2013 Patient encounter status Ronny Polanco MD Work Phone: [facility] Encounter for genera l adult medical examination without abnormal findings [facility] Procedures Date Procedure Procedure Detail Performing Clinician Start: 08-14-[address] Elgin Bal MD Work Phone: Start: 08-14-2025 Serum inorganic phos phate measurement Dr. Elgin Bal MD Work Phone: Start: 08-02-[address] Elgin Bal MD Work Phone: Start: 07-29-2025 Serum inorganic phos phate measurement Dr. Elgin Bal MD Work Phone: Start: 07-29-2025 Vitamin D, 25-hydrox y measurement Dr. Elgin Bal MD Work Phone: Comment on above: Vitamin D StatusDefi ciency: <20 ng/mL (50nmol/L)Insufficiency: 20-30 ng/mL (50-75 nmol/L)Sufficiency: 30-100 ng/mL (75-250 nmol/L)Toxicity: >100 ng/mL (>250 nmol/L) Start: 07-02-[address] Elgin Bal MD Work Phone: Start: 06-19-[address] Elgin Bal MD Work Phone: Start: 06-19-2025 Serum inorganic phos phate measurement Dr. Elgin Bal MD Work Phone: Start: 05-26-2025 Urnls dip stick/tabl et reagent auto microscopy Dr. Elgin Bal MD Work Phone: Start: 05-26-[address] Keyur Bal MD Work Phone: Start: 05-02-[address] Elgin Bal MD Work Phone: Start: 04-24-[address] Elgin Bal MD Work Phone: Start: 04-24-2025 Serum inorganic phos phate measurement Dr. Elgin Bal MD Work Phone: Start: 04-01-[address] Elgin Bal MD Work Phone: Start: 02-27-[address] Elgin Bal MD Work Phone: Start: 01-30-[address] Elgin Bal MD Work Phone: Start: 01-03-[address] Elgin Bal MD Work Phone: Start: 01-03-2025 Urine microalbumin/creatinine ratio measurement Dr. Elgin Bal MD Work Phone: Comment on above: Test not performed Start: 01-02-2025 Assay of phosphorus inorganic Dr. Elgin Bal MD Work Phone: Start: 01-02-[address] Elgin Bal MD Work Phone: [...] Comment: URIN ALYSIS Performed By: #### [id number] #### [place] [id number] Start: 04-08-2020 Urinalysis HODA WYATT Comment on above: Result Comment: URIN ALYSIS Performed By: #### [id number] #### [facility],[address] [place] [address] Start: 02-04-2020 Urinalysis HODA WYATT Comment on above: Result Comment: URIN ALYSIS Performed By: #### [id number] #### [place] [id number] Start: 01-07-2020 Urinalysis HODA WYATT Comment on above: Result Comment: URIN ALYSIS Performed By: #### 2 [id number] #### [place] [id number] Start: 12-10-2019 Urinalysis HODA EASLEY YOSELIN Comment on above: Result Comment: URIN ALYSIS Performed By: #### [id number] #### [place] [id number] Start: 11-05-2019 Urinalysis HODA GOODRICHELIJAH Comment on above: Result Comment: URIN ALYSIS Performed By: #### [id number] #### [place] [address] Start: 10-08-2019 Urinalysis HODA EASLEY YOSELIN Comment on above: Result Comment: URIN ALYSIS Performed By: #### [id number] #### [place] [id number] Start: 09-10-2019 Urinalysis HODA EASLEY YOSELIN Comment on above: Result Comment: URIN ALYSIS Performed By: #### [id number] #### [place] [address] Start: 08-10-2019 Adult depression scr eening assessment Anthony Olivares MD Work Phone: Start: 08-06-2019 Urinalysis HODATERRELL EASLEY YOSELIN Comment on above: Result Comment: URIN ALYSIS Performed By: #### 2 [id number] #### [place] [address] Start: 07-23-2019 Colonoscopy Anthony rosa MD Work Phone: Start: 08-09-2018 Lipid 1996 panel - S ellen or Plasma Luz Daniel MD Work Phone: Urine culture Urine culture Plan of Treatment Date Care Activity Detail Author Start: 12-20-2028 Lipid panel Lipid Screening [facility] Start: 12-20-2026 Diabetes Screening Diabetes Screenin g [facility] Start: 09-16-2025 End: 09-16-2025 Patient encounter procedure 09/16/2025 9:00 AM EST Office Visit [facility] General Rheumatology and Arthritis [address] [place] [address] [address] [place], [place] [phone] Dorota Smith MD [address] [place], [place] [id number] 6 months in office PA [facility] Comment on above: 6 months in office P A Start: 09-14-2025 BP Controlled (<130/80) BP Controlle d (<130/80) [facility] Start: 08-15-2025 End: 08-15-2025 Patient encounter procedure 08/15/2025 2:20 PM EDT Office Visit [facility] [address] [place] [id number] Anthony Olivares MD [address] [place], [place] [phone] f/u [facility] Comment on above: f/u Start: 07-17-2025 BP Controlled (<130/80) BP Controlle d (<130/80) [facility] Start: 07-15-2025 Influenza vaccination Influenza Vacc ine (#1) [facility] Start: 05-23-2025 End: 05-23-2025 Patient encounter procedure 05/23/2025 4:00 PM EDT Office Visit [facility] [address] [place] [address] Anthony Olivares MD [address] [place] [address] Virtual f/u per Dr Olivares.I spoke with Nursing Facility where patient is at [facility] Comment on above: Virtual f/u per Dr Leonie herrera.I spoke with Nursing Facility where patient is at Start: 03-20-2025 End: 03-20-2025 Patient encounter procedure 03/20/2025 9:00 AM EDT Office Visit [facility] [place] General Rheumatology and Arthritis [address] [place], [place] [phone] Leeann Lopez PA-C [address] [place], [place] [phone] 6 months in office PA [facility] Comment on above: 6 months in office P A Start: 02-26-2025 End: 02-26-2025 Patient encounter procedure 02/26/2025 9:00 AM EDT Appointment Infusion Center [address] [place] [address] [address] Elise Jack, granulomatosis, () Infusion Center Comment on above: Dr Elise Jack, granulomatosis, () Start: 02-20-2025 Covid-19 Vaccine (9 - Pfizer risk ) Covid-19 Vaccine (9 - Pfizer risk ) [facility] Start: 12-20-2024 BP Controlled (<130/80) BP Controlle d (<130/80) [facility] Start: 12-20-2024 Complete blood count Hemoglobin/Timo tocrit [facility] Start: 12-20-2024 Creatinine measurement Serum Creatin ine [facility] Start: 11-20-2024 End: 11-20-2024 Patient encounter procedure 11/20/2024 11:00 AM EST Office Visit Kidney Medicine [facility] [address] [place] [address] Anthony Olivares MD [address] [place] [address] follow up in October per Dr Olivares [facility]ney [facility] Comment on above: follow up in per Dr Olivares Start: 11-14-2024 Medicare Advantage Annual Wellness Visit Medicare Advantage Annual Wellness Visit [facility] Start: 10-17-2024 Covid-19 Vaccine () Covid-19 Vaccine () [facility] Start: 09-14-2024 End: 09-14-2024 Patient encounter procedure 09/14/2024 9:00 AM EDT Office Visit [facility] [place] General Rheumatology and Arthritis [address] [place], [place] [phone] Dorota Smith MD [address] [place], [place] [phone] RA/Trans from Dr Daniel to [facility] General Rheumatology and Arthritis Comment on above: RA/Trans from Dr Ruben welsh to [facility] Start: 08-09-2024 End: 08-09-2024 Patient encounter procedure 08/09/2024 7:00 AM EDT Appointment Infusion Center [address] [place] [address] rituximab, M32.30 elise(RK) Infusion Center Comment on above: rituximab, M32.30 , elise(RK) Start: 07-17-2024 End: 07-17-2024 Patient encounter procedure 07/17/2024 11:20 AM EDT Office Visit Kidney [facility] [address] [address] Anthony Olivares MD [address] [place] [address] Vasculitis Renal follow up [facility] Comment on above: Vasculitis Renal fol low up Start: 07-15-2024 Covid-19 Vaccine ( season) Covid-19 Vaccine ( season) [facility] Start: 07-15-2024 Covid-19 Vaccine ( season) Covid-19 Vaccine ( season) [facility] Start: 07-15-2024 Influenza vaccination Influenza Vacc ine (#1) [facility] Start: 05-21-2024 End: 05-21-2024 Patient encounter procedure 05/21/2024 9:20 AM EDT Office Visit [facility] General Rheumatology and Arthritis [address] [place], [place] [address] Dorota Smith MD [address] [place], [place] [address] RA/Trans from Dr Daniel to [facility] General Rheumatology and Arthritis Comment on above: RA/Trans from Dr Ruben welsh to [facility] Start: 03-09-2024 Lipid panel Lipid Screening [facility] Start: 02-21-2024 PROSTATE CANCER SCREENING DISCUSSION PROSTATE CANCER SCREENING DISCUSSION [facility] Start: 02-21-2024 Prostate specific antigen measurement Prostate Cancer Screening Discussion [facility] Start: 12-20-2023 End: 03-20-2024 25-hydroxyvitamin D3 [Mass/volume] in Serum or Plasma [facility] Work Phone: Comment on above: Expected: 12/20/2023 , Expires: 03/20/2024 Start: 12-12-2023 Covid-19 Vaccine () Covid-19 Vaccine () [facility] Start: 11-14-2023 Behavioral Health Screening Behavioral Health Screening [facility] Start: 11-14-2023 [facility] Start: 11-04-2023 Diabetes Screening Diabetes Screenin [facility] Start: 11-03-2023 BP CONTROLLED (<130/80) BP CONTROLLE D (<130/80) [facility] Start: 09-18-2023 DIABETES SCREEN DIABETES SCREEN [facility] Start: 09-18-2023 Diabetes Screening Diabetes Screenin g [facility] Start: 08-09-2023 Lipid 1996 panel - S ellen or Plasma Lipid Screening [facility] Start: 08-09-2023 LIPID SCREEN LIPID SCREEN [facility] Start: 07-15-2023 Covid-19 Vaccine ( season) Covid-19 Vaccine () [facility] Start: 07-15-2023 Influenza vaccination C [facility] Start: 2023 RSV Vaccine (1 - 1-d ose 60+ series) RSV Vaccine (1 - 1-dose 60+ series) [facility] [facility] Start: 2023 RSV Vaccine (1 - Ris k 60-74 years 1-dose series) RSV Vaccine (1 - Risk 60-74 years 1-dose series) [facility] Start: 11-14-2022 DEPRESSION ASSESSMENT DEPRESSION ASS ESSMENT [facility] Start: 11-03-2022 End: 11-03-2023 Chronic hepatitis differentiation between hepatitis B and C virus panel - Serum or Plasma HEP REMOTE PANEL BL Lab Routine Granulomatosis with polyangiitis with renal involvement (HCC) Expected: 11/03/2022, Expires: 11/03/2023 [facility] Work Phone: Comment on above: Expected: 11/03/2022 , Expires: 11/03/2023 Start: 07-23-2022 Colonoscopy COLONOSCOPY [facility] Start: 07-23-2022 COLORECTAL CANCER SCREENING COLORECTAL CANCER SCREENING [facility] Start: 07-23-2022 Screening for malign ant neoplasm of colon [facility] Start: 07-15-2022 Influenza vaccination INFLUENZA (#1) [facility] Start: 04-29-2022 COVID-19 VACCINE (6 - Booster for Pfizer series) COVID-19 VACCINE (6 - Booster for Pfizer series) [facility] Start: 01-04-2022 COVID-19 VACCINE (5 - Booster for Pfizer series) COVID-19 VACCINE (5 - Booster for Pfizer series) [facility] Start: 11-14-2021 DEPRESSION ASSESSMENT DEPRESSION ASS ESSMENT [facility] Start: 11-04-2021 Creatinine measurement [facility] Start: 11-04-2021 Potassium monitoring [facility]it [facility] [place] Start: 11-02-2021 HEMOGLOBIN/HEMATOCRIT HEMOGLOBIN/HEM ATOCRIT [facility] Start: 09-18-2021 SERUM CREATININE SERUM CREATININE Cl [facility] Start: 11-09-2020 Influenza vaccination LUNG CANCER SC REENING [facility] Start: 11-09-2020 Screening for malign ant neoplasm of lung Lung Cancer Screening [facility] Start: 08-10-2020 Adult depression screening assessment DEPRESSION SCREENING [facility] Start: 07-15-2020 Influenza vaccination Flu vaccine (# 1) [facility] [place] Start: 02-21-2020 ANNUAL PCP TEAM GLASS CYLINDER FLANGER DIPTI DISEASE VISIT ANNUAL PCP TEAM CHRONIC DISEASE VISIT [facility] Start: 07-10-2019 PNEUMOCOCCAL (3 - PP SV23 if available, else PCV20) PNEUMOCOCCAL (3 - PPSV23 if available, else PCV20) [facility] Start: 07-10-2019 PNEUMOCOCCAL (3 - PP SV23 or PCV20) PNEUMOCOCCAL (3 - PPSV23 or PCV20) [facility] Start: 07-10-2019 Pneumococcal vaccination Pneum ococcal Vaccine (3 - PPSV23 or PCV20) [facility] Start: 09-04-2018 Pneumococcal vaccination Pneum ococcal Vaccine (3 of 3 - PPSV23 or PCV20) [facility] Start: 08-16-2014 TWO PNEUMOVAX 5 YEAR S APART PRIOR TO AGE 65 (#2) TWO PNEUMOVAX 5 YEARS APART PRIOR TO AGE 65 (#2) [facility] Start: 2013 SHINGRIX VACCINE (1 of 2) SHINGRIX VACCINE (1 of 2) [facility] Start: 2008 COLOGUARD (FIT-DNA) COLOGUARD (FIT-D NA) [facility] Start: [address] COLONOGRAPHY [facility] Start: 2008 FECAL OCCULT BLOOD FECAL OCCULT BLOO D [facility] Start: 2008 Screening for malign ant neoplasm of colon [facility] Start: [address] [facility] Start: 1982 SHINGRIX VACCINE (1 of 2) SHINGRIX VACCINE (1 of 2) [facility] Start: 1982 Urine microalbumin profile [facility] Start: 1981 Annual PCP Team [employer] dipti Disease Visit Annual PCP Team Chronic Disease Visit [facility] Start: 1981 Anxiety Screening Anxiety Screening [facility] Start: 1981 BP CONTROLLED (<130/80) BP CONTROLLE D (<130/80) [facility] Start: 1981 Depression Screening Depression Scre ening [facility] CBC Auto Differential CBC Auto D ifferential Lab Routine Daily until discontinued starting 11/03/2020, [address] [facility] [place] Comment on above: Daily until disconti nued starting 11/03/2020, 2 completed End: 12-19-2024 CBC W Auto Differential panel - Blood CBC + DIFF Lab Routine Stage 3b chronic kidney disease (HCC) Granulomatosis with polyangiitis with renal involvement (HCC) Once per month for 13 Occurrences starting 12/20/2023 until 12/19/2024, 1 completed [facility] Work Phone: Comment on above: Once per month for 1 3 Occurrences starting 12/20/2023 until 12/19/2024, 1 completed End: 05-23-2026 CBC W Auto Differential panel - Blood COMPLETE BLOOD COUNT AND DIFFERENTIAL Lab Routine Granulomatosis with polyangiitis with renal involvement (HCC) Every 2 months for 7 Occurrences starting 05/23/2025 until 05/23/2026 [facility] Comment on above: Every 2 months for 7 Occurrences starting 05/23/2025 until 05/23/2026 End: 12-19-2024 Comprehensive metabolic 2000 panel - Serum or Plasma COMP METABOLIC PANEL Lab Routine Stage 3b chronic kidney disease (HCC) Granulomatosis with polyangiitis with renal involvement (HCC) Once per month for 13 Occurrences starting 12/20/2023 until 12/19/2024, 1 completed [facility] Work Phone: Comment on above: Once per month for 1 3 Occurrences starting 12/20/2023 until 12/19/2024, 1 completed End: 05-23-2026 Comprehensive metabolic 2000 panel - Serum or Plasma COMPREHENSIVE METABOLIC PANEL Lab Routine Granulomatosis with polyangiitis with renal involvement (HCC) Every 2 months for 7 Occurrences starting 05/23/2025 until 05/23/2026 [facility] Work Phone: Comment on above: Every 2 months for 7 Occurrences starting 05/23/2025 until 05/23/2026 Comprehensive Metabo lic Panel w/ Reflex to MG Comprehensive Metabolic Panel w/ Reflex to MG Lab Routine Daily until discontinued starting 10/28/2020, 7 completed [place], [place] Comment on above: Daily until disconti nued starting 10/28/2020, 7 completed Nasal Cannula Oxygen Nasal Cannu la Oxygen Respiratory Care Routine Daily until discontinued starting 10/28/2020 [place] Comment on above: Daily until disconti nued starting 10/28/2020 Nebulizer therapy HHN Treatment Respiratory Care Routine 0600, 1000, 1400, 1800, 2200 until discontinued starting 10/30/2020 [place] Comment on above: 0600, 1000, 1400, 18 00, 2200 until discontinued starting 10/30/2020 Oxygen therapy [[facility] Data Set] Initiate Oxygen Therapy Protocol Respiratory Care Routine Daily until discontinued starting 10/28/2020 [place] Comment on above: Daily until disconti nued starting 10/28/2020 End: 12-19-2024 Phosphate [Mass/volume] in Serum or Plasma PHOSPHORUS INORGANIC Lab Routine Stage 3b chronic kidney disease (HCC) Granulomatosis with polyangiitis with renal involvement (HCC) Once per month for 13 Occurrences starting 12/20/2023 until 12/19/2024, 1 completed [facility] Work Phone: Comment on above: Once per month for 1 3 Occurrences starting 12/20/2023 until 12/19/2024, 1 completed End: 05-23-2026 Phosphate [Mass/volume] in Serum or Plasma PHOSPHORUS INORGANIC Lab Routine Granulomatosis with polyangiitis with renal involvement (HCC) Every 2 months for 7 Occurrences starting 05/23/2025 until 05/23/2026 [facility] Comment on above: Every 2 months for 7 Occurrences starting 05/23/2025 until 05/23/2026 End: 12-19-2024 Protein/Creatinine [Mass Ratio] in Urine PROTEIN CREATININE RATIO Lab Routine Granulomatosis with polyangiitis with renal involvement (HCC) Once per month for 13 Occurrences starting 12/20/2023 until 12/19/2024 [facility] Work Phone: Comment on above: Once per month for 1 3 Occurrences starting 12/20/2023 until 12/19/2024 UA DIP, URINE (POC) UA DIP, URIN E (POC) Lab Routine Screening for genitourinary condition 1 Occurrences starting 11/20/2024 [facility] Work Phone: Comment on above: 1 Occurrences starti ng 11/20/2024 UA DIP, URINE (POC) UA DIP, URIN E (POC) Lab Routine Screening for genitourinary condition 1 Occurrences starting 05/23/2025 [facility] Work Phone: Comment on above: 1 Occurrences starti ng 05/23/2025 End: 12-19-2024 Urinalysis complete panel - Urine URINALYSIS, WITH MICROSCOPIC Lab Routine Granulomatosis with polyangiitis with renal involvement (HCC) Once per month for 13 Occurrences starting 12/20/2023 until 12/19/2024 [facility] Work Phone: Comment on above: Once per month for 1 3 Occurrences starting 12/20/2023 until 12/19/2024 End: 05-23-2026 Urinalysis complete panel - Urine URINALYSIS, WITH MICROSCOPIC Lab Routine Granulomatosis with polyangiitis with renal involvement (HCC) Every 2 months for 7 Occurrences starting 05/23/2025 until 05/23/2026 [facility] Comment on above: Every 2 months for 7 Occurrences starting 05/23/2025 until 05/23/2026 [facility] Immunizations Immunization Date Immunization Notes Care Provider Fa [facility] 08-15-2024 influenza virus vacc ine, unspecified formulation Anthony Olivares MD Work Phone: [facility] 08-15-2023 influenza virus vacc ine, unspecified formulation Dorota Smith MD Work Phone: [facility] 08-18-2021 influenza, injectabl e, quadrivalent, preservative free Anthony Olivares MD Work Phone: [facility] Work Phone: 08-18-2021 influenza virus vacc ine, unspecified formulation Luz Daniel MD Work Phone: [facility] 08-14-2021 COVID-19 vaccine, ag e 12+ yr (UI [employer] - PURPLE TOP) Anthony Olivares MD Work Phone: [facility] Work Phone: 08-17-2019 influenza, injectabl e, quadrivalent, preservative free Anthony Olivares MD Work Phone: [facility] 08-02-2018 influenza, injectabl e, quadrivalent, preservative free Anthony Olivares MD Work Phone: [facility] 07-10-2018 pneumococcal conjuga te vaccine, 13 valent Anthony Olivares MD Work Phone: [facility] 08-14-2016 Influenza virus vaccine [facility] 08-14-2016 influenza, seasonal, injectable, preservative free Anthony Olivares MD Work Phone: [facility] Work Phone: 07-30-2016 influenza, injectabl e, quadrivalent, contains preservative Anthony Olivares MD Work Phone: [facility] 08-21-2015 influenza, injectabl e, quadrivalent, contains preservative Anthony Olivares MD Work Phone: [facility] 09-27-2014 influenza, seasonal, injectable Anthony Olivares MD Work Phone: [facility] 09-06-2013 influenza virus vacc ine, unspecified formulation Anthony Olivares MD Work Phone: [facility] 09-07-2012 influenza virus vacc ine, unspecified formulation Anthony Olivares MD Work Phone: [facility] Work Phone: 11-24-2010 influenza virus vacc ine, unspecified formulation Anthony Olivares MD Work Phone: [facility] Work Phone: 08-16-2009 influenza virus vacc ine, unspecified formulation Anthony Olivares MD Work Phone: [facility] 08-16-2009 pneumococcal polysaccharide vaccine, 23 valent Anthony Olivares MD Work Phone: [facility] 10-15-2000 influenza virus vacc ine, whole virus Anthony Olivares MD Work Phone: [facility] Work Phone: Payers Date Payer Category Payer Self-pay [id number] [phone] [id number] 2020 Medicaid [id number] 2020 Medicare [id number] 2020 Medicare UHC MEDICARE MYC ARE [facility]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 Housing Manager Expl anation Advance Directive(s) 08/17/2019 7:16 PM Advance Directive(s) 08/14/2019 9:32 AM Advance Directive(s) 07/23/2019 12:21 PM Advance Directive(s) 01/05/2019 9:49 AM Advance Directive(s) 06/12/2018 10:01 AM Advance Directive(s) 08/24/2016 10:32 PM Advance Directive(s) 08/11/2016 2:31 PM Documents on File Type Date Recorded Patient Public Housing Manager Expl anation Advance Directive(s) 08/17/2019 7:16 PM Advance Directive(s) 08/14/2019 9:32 AM Advance Directive(s) 07/23/2019 12:21 PM Advance Directive(s) 01/05/2019 9:49 AM Advance Directive(s) 06/12/2018 10:01 AM Advance Directive(s) 08/24/2016 10:32 PM Advance Directive(s) 08/11/2016 2:31 PM Advance Directive Response Recorded Date/ Time Advance Directives No July 12:38am Living Will No March 02, 2019 12:12pm Power of Construction Project Assistant No March 02 12:12pm Advance Directive Response [...] with shortness of breath and hypoxia from [place] [facility] [place]. He had a positive COVID19 test (more [...] 10/28/20 0000 -- -- -- Aminah León [phone] Admitting Physician: Farrukh Diaz MD PCP: No primary care provider on file. Discharging Nurse: [facility] Unit/Room#: 493/6094 Discharging Unit Phone Number: [phone] Emergency Contact: No emergency contact information on [...] Casillas RN 11/05/20 11/12/20 10/14/2020 Documentation in [place] Disease Reporting System of positive COVID - [...] Assisted Dressing Assisted Toileting Independent Feeding Independent Asset Protection Representative Assisted Med Delivery whole Wound Care Documentation [...] Readmission: 20 Discharging to Facility/ Agency Name: [facility] Address: [address] [place] [id number] Dialysis Facility (if applicable) Name: Address: Dialysis Schedule: Phone: Fax: Economic Research Analyst/Punch Operator signature: at12:24 PM EST PHYSICIAN SECTION Prognosis: [...] PM EST Report given to Yesenia at [place]. * Amaris Ibrahim RCP - 11/04/2020 12:15 PM EST [facility] Respiratory Care Department Progress Note SpO2 [...] Daniel MD - 11/03/2020 6:05 PM EST [facility]ph[facility] Progress Note Subjective/ 55 [...] in remission from renal perspective. No urgent AREA FORESTER indications. Will follow. [facility] * Farrukh Diaz MD - 11/03/2020 1:09 PM EST Hospitalist Progress Note 11/03/2020 1:09 PM [phone]: Please page fl [phone] for patient care issues. [phone]: Please page [facility] night Hospitalist for any issues. [...] of Hospitalist Medicine Inpatient Medical Services PAGER: [phone] * Piyush Daniel MD - 11/02/2020 10:00 [...] remission atleast from renal perspective. No urgent AREA FORESTER indications. Will follow. [facility] * Farrukh Diza MD - 11/02/2020 3:16 PM EST Hospitalist Progress Note 11/02/2020 3:16 PM [phone]: Please page fl [phone] for patient care issues. [phone]: Please page [facility] Hospitalist for any issues. Subjective: Admit [...] of Hospitalist Medicine Inpatient Medical Services PAGER: [phone] * Piyush Daniel MD - 11/01/2020 8:04 PM EST [facility] Progress Note Subjective/ 55 [...] remission atleast from renal perspective. No urgent AREA FORESTER indications. Will follow. [facility] * Farrukh Diaz MD - 11/01/2020 3:07 PM EST Hospitalist Progress Note 11/01/2020 3:08 PM [phone]: Please page fl [phone] for patient care issues. [phone]: Please page [facility] night Hospitalist for any issues. [...] of Hospitalist Medicine Inpatient Medical Services PAGER: [phone] * Mia Noyola RCP - 11/01/2020 12:00 [...] EST Hospitalist Progress Note 11/01/2020 11:33 AM [phone]: Please page fl [phone] for patient care issues. [phone]: Please page [facility] night Hospitalist for any issues. [...] of Hospitalist Medicine Inpatient Medical Services PAGER: [phone] * Bakari Hdz MD - 10/31/2020 9:35 AM EST [facility] Progress Note Subjective/ 55 [...] solution 1 ampule 1 ampule Inhalation Q4H [place] Farrukh Diaz MD 1 ampule at 10/30/202226 [...] from renal perspective. D/w IMS. No urgent AREA FORESTER indications. Will follow. [facility] * Farrukh Diaz MD - 10/30/2020 3:50 PM EST Hospitalist Progress Note 10/30/2020 3:50 PM [phone]: Please page fl [phone] for patient care issues. [phone]: Please page [facility] Hospitalist for any issues. Subjective: Admit [...] NEGATIVE: No targets were detected by the [employer] Upper Respiratory Pathogens PCR Panel. _ Expected Result: Not Detected The [employer] Upper Respiratory Pathogens PCR Panel can detect [...] management decisions. This assay was developed by [employer] and distributed under an Emergency Use Authorization (EUA) granted by the FDA for the qualitative detection of SARS-CoV-2 nucleic acid. Provider and patient fact sheets can be found at https://www.fda. gov/media/300262/download and https://www.fda.gov/media/872175/download. Assessment / Plan 1. Acute hypoxic respiratory [...] of Hospitalist Medicine Inpatient Medical Services PAGER: [phone] * Bakari Hdz MD - 10/30/2020 10:18 AM EST [facility] Progress Note Subjective/ 55 [...] in remission atleast from renal perspective. D/w [facility]. No urgent AREA FORESTER indications. Will follow. [facility] * Jeanie Samuel - 10/30/2020 9:42 AM EST Nutrition rescreen completed. Patient assigned a level 1. * Farrukh Diaz MD - 10/29/2020 5:56 PM EST Hospitalist Progress Note 10/29/2020 5:56 PM [phone]: Please page fl [phone] for patient care issues. [phone]: Please page [facility] night Hospitalist for any issues. [...] NEGATIVE: No targets were detected by the [employer] Upper Respiratory Pathogens PCR Panel. _ Expected Result: Not Detected The [employer] Upper Respiratory Pathogens PCR Panel can detect [...] management decisions. This assay was developed by [employer] and distributed under an Emergency Use Authorization (EUA) granted by the FDA for the qualitative detection of SARS-CoV-2 nucleic acid. Provider and patient fact sheets can be found at https://www.fda. gov/media/281991/download and https://www.fda.gov/media/073314/download. Assessment / Plan 1. Acute hypoxic respiratory [...] of Hospitalist Medicine Inpatient Medical Services PAGER: [phone] * Shirley Casillas RN - 10/29/2020 10:49 AM EST Documentation in [place] disease Reporting System: * Farrukh Diaz MD - 10/29/2020 9:58 AM EST Patient unable to get CTA chest due to DONNA - will hydrate and if able, will get it at a later time. * Irena Land RN - 10/29/2020 12:48 AM EST Patient moved into private bed [address] Mosley. Patients COVID test came back negative. Dr. Pro nursing program supervisor made aware. documented in this encounter Assessments Diagnosis Pneumonia due to COVID-19 virus- Primary Hypoxia Hypoxemia Hypokalemia Hypopotassemia Stage 3 chronic kidney disease, unspecified whether stage 3a or 3b CKD Chief Complaint and Reason for Visit Chief Complaint [facility] Chief Complaint [facility] Chief Complaint [facility] Chief Complaint [facility] Chief Complaint [facility] Chief Complaint [facility] LABWORK Chief Complaint LABWORK [facility] LABWORK Chief Complaint LABWORK [facility] Chief Complaint [facility] Chief Complaint LABWORK [facility]WORK LABWORK [facility] Chief Complaint [facility]WORK [facility]WORK LABWORK [facility] Chief Complaint LABWORK LABWORK [facility] Chief Complaint LABWORK [facility] Chief Complaint LABWORK [facility] Chief Complaint [facility] Chief Complaint [facility] Chief Complaint [facility] Chief Complaint LABWORK [facility] Chief Complaint [facility] LAB[facility] Chief Complaint [facility] LABWORK [facility] Chief Complaint LABWORK LABWORK [facility] Chief Complaint LABWORK [facility] Chief Complaint [facility] Chief Complaint LABWORK LABWORK [facility] Chief Complaint [facility] Chief Complaint LABWORK LABWORK [facility] Chief Complaint [facility] Chief Complaint [facility]WORK LABWORK [facility] Chief Complaint [facility]WORK LABWORK [facility] Chief Complaint LABWORK LABWORK [facility] Chief Complaint [facility] Chief Complaint [facility] Chief Complaint LABWORK [facility] Chief Complaint [facility] Chief Complaint [facility] Chief Complaint [facility]mit Date [facility] September 27 4 5:00am [facility] November 15, 2024 5:00am [facility] November 27, 2024 5:00am [facility] December 28 5:00am [facility] January 02 5:00am [facility] January 03 6:10am Chief Complaint Admit Date [facility] November 15, 2024 5:00am [facility] November 27, 2024 5[facility]00am [facility] December 28 5[facility]00am [facility] January 02 5:00am [facility] January 03 6:10am [facility] January 25, 2025 5 :00am Chief Complaint Admit Date [facility] November 15, 2024 5:00am [facility] November 27, 2024 5:00am [facility] December 28 5:00am [facility] January 02 5:00am [facility] January 03 6:10am [facility] January 25, 2025 5 :00am [facility] January 30, 2025 5 :00am Chief Complaint Admit Date [facility] November 15, 2024 5:00am [facility] November 27, 2024 5:00am [facility] December 28 5:00am [facility] January 02 5:00am [facility] January 03 6:10am [facility] January 25, 2025 5 :00am [facility] January 30, 2025 5 :00am [facility] February 06, 2025 5:0 0am [facility] February 11, 2025 5:0 0am Chief Complaint Admit Date [facility] November 27, 2024 5:00am [facility] December 28 5:00am [facility] January 02 5:00am [facility] January 03 6:10am [facility] January 25, 2025 5 :00am [facility] January 30, 2025 5 :00am [facility] February 06, 2025 5:0 0am [facility] February 11, 2025 5:0 0am [facility] February 27, 2025 5:0 0am Chief Complaint Admit Date [facility] November 27, 2024 5:00am [facility] December 28 5:00am [facility] January 02 5:00am [facility] January 03 6:10am [facility] January 25, 2025 5 :00am [facility] January 30, 2025 5 :00am [facility] February 06, 2025 5:0 0am [facility] February 11, 2025 5:0 0am [facility] February 25, 2025 5 :00am [facility] February 27, 2025 5:0 0am Chief Complaint Admit Date [facility] December 28 5:00am [facility] January 02 5:00am [facility] January 03 6:10am [facility] January 25, 2025 5 :00am [facility] January 30, 2025 5 :00am [facility] February 06, 2025 5:0 0am [facility] February 11, 2025 5:0 0am [facility] February 25, 2025 5 :00am [facility] February 27, 2025 5:0 0am [facility] March 04, 2025 1 0:30pm Chief Complaint Admit Date [facility] January 25, 2025 5 :00am [facility] January 30, 2025 5 :00am [facility] February 06, 2025 5:0 0am [facility] February 11, 2025 5:0 0am [facility] February 25, 2025 5 :00am [facility] February 27, 2025 5:0 0am [facility] March 04, 2025 1 0:30pm [facility] March 27, 2025 5:00a m [facility] April 01, 2025 5:0 0am Chief Complaint Admit Date [facility] April 24, 2025 5: 00am [facility] April 26, 2025 5:00 am [facility] May 02, 2025 5: 00am [facility] May 24, 2025 5: 00am [facility] May 26, 2025 8: 00pm [facility] May 28, 2025 5: 00am [facility] June 05, 2025 5:00 am [facility] June 19, 2025 5:0 0am [facility] June 20, 2025 5:0 0am [facility] June 27, 2025 5:00am [facility] July 01, 2025 6:38am [facility] July 02, 2025 5:00am [facility] July 29, 2025 5:00am Chief Complaint Admit Date [facility] April 24, 2025 5: 00am [facility] April 26, 2025 5:00 am [facility] May 02, 2025 5: 00am [facility] May 24, 2025 5: 00am [facility] May 26, 2025 8: 00pm [facility] May 28, 2025 5: 00am [facility] June 05, 2025 5:00 am [facility] June 19, 2025 5:0 0am [facility] June 20, 2025 5:0 0am [facility] June 27, 2025 5:00am [facility] July 01, 2025 6:38am [facility] July 02, 2025 5:00am [facility] July 29, 2025 5:00am [facility] August 02 5:00am LAB[facility] August [...] eruption Procedures CONSULT TO DERMATOLOGY OFFICE/OUTPATIENT [facility] 60 MINUTES Dorota Smith MD [address] [facility] [address] [place] [address] Referral ID Status Reason Start Date Expiration Date Visits Requested Visits Authorized [id number] Authorized PCP Requested Referral 09/14/2024 09/14/2025 1 1 Additional Source Comments INFORMATION SOURCE (unrecogn ized section and content) DATE CREATED AUTHOR 06/07/2018 [facility] DATE CREATED AUTHOR AUTHOR'S ORGANIZ ATION 04/02/2019 [facility] DATE CREATED AUTHOR AUTHOR'S ORGANIZ ATION 03/30/2020 [facility] DATE CREATED AUTHOR AUTHOR'S ORGANIZ ATION 08/05/2020 [facility] DATE CREATED AUTHOR AUTHOR'S ORGANIZ ATION 11/21/2020 [facility] DATE CREATED AUTHOR AUTHOR'S ORGANIZ ATION 09/18/2024 [facility] DATE CREATED AUTHOR AUTHOR'S ORGANIZ ATION 08/20/2025 [facility] DATE CREATED AUTHOR AUTHOR'S ORGANIZ ATION 08/29/2025 [facility] DATE CREATED AUTHOR AUTHOR'S ORGANIZ ATION 09/19/2025 [facility] (unrecognized sect ion and content) No [...] 10 MG IV RITUXIMAB Anthony Olivares MD [address] [id number] 1, Kidney Med Main Infusion Chair [address] [id number] Referral ID Status Reason Start Date Expiration Date V isits Requested Visits Authorized [id number] Authorized 03/31/2022 11/13/2022 99 99 Reason Comments Shortness of Breath Reason Comments Follow Up Reason Comments Infusion iv rituximab Reason Comments Radio Main J1 Specialty Diagnoses / Procedures Referred By Ulises duncan Referred To Contact XR IMAGING Diagnoses Chronic pain of right knee Procedures XR KNEE LIMITED 2V AP/LAT RIGHT RADIOLOGIC EXAMINATION KNEE 1/2 VIEWS Luz Daniel MD [address] [place] [address] Xr Imaging Referral ID Status Reason Start Date Expiration Date V isits Requested Visits Authorized [id number] Closed Auto-Generate d Referral 02/26/2022 03/28/2023 1 1 Reason Comments Rheumatoid Arthritis Reason Comments Follow Up RA- hands, stiff and swollen Reason Comments NO SHOW Reason Comments Patient Update Reason Comments Appointment Specialty Diagnoses / Procedures Referred By Ulises t Referred To Contact Diagnoses 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) Procedures INJ RUXIENCE, 10 MG Anthony Olivares MD [address] [place] [address] [facility] [address] [place] [address] Referral ID Status Reason Start Date Expiration Date V isits Requested Visits Authorized [id number] Authorized 12/27/2023 12/29/2024 24 24 Reason Comments [...] any alcohol or drug abuse patient.[facility] Center[facility] the event this information is protected by the Federal Confidentiality of Alcohol and Drug Abuse Patient Records regulations: The Federal rules restrict any use of the information to criminally investigate or prosecute any alcohol or drug abuse patient.[facility] the event this information is protected by the Federal Confidentiality of Alcohol and Drug Abuse Patient Records regulations: The Federal rules restrict any use of the information to criminally investigate or prosecute any alcohol or drug abuse patient.[facility] the event this information is protected by the Federal Confidentiality of Alcohol and Drug Abuse Patient Records regulations: The Federal rules restrict any use of the information to criminally investigate or prosecute any alcohol or drug abuse patient.[facility] Center[facility] the event this information is protected by the Federal Confidentiality of Alcohol and Drug Abuse Patient Records regulations: The Federal rules restrict any use of the information to criminally investigate or prosecute any alcohol or drug abuse patient.[facility] Center[facility] the event this information is protected by the Federal Confidentiality of Alcohol and Drug Abuse Patient Records regulations: The Federal rules restrict any use of the information to criminally investigate or prosecute any alcohol or drug abuse patient.[facility] Center[facility] the event this information is protected by the Federal Confidentiality of Alcohol and Drug Abuse Patient Records regulations: The Federal rules restrict any use of the information to criminally investigate or prosecute any alcohol or drug abuse patient.[facility] Center[facility] the event this information is protected by the Federal Confidentiality of Alcohol and Drug Abuse Patient Records regulations: The Federal rules restrict any use of the information to criminally investigate or prosecute any alcohol or drug abuse patient.[facility] Center[facility] the event this information is protected by the Federal Confidentiality of Alcohol and Drug Abuse Patient Records regulations: The Federal rules restrict any use of the information to criminally investigate or prosecute any alcohol or drug abuse patient.[facility] Center[facility] the event this information is protected by the Federal Confidentiality of Alcohol and Drug Abuse Patient Records regulations: The Federal rules restrict any use of the information to criminally investigate or prosecute any alcohol or drug abuse patient.[facility] CenterIn the event this information is protected by the Federal Confidentiality of Alcohol and Drug Abuse Patient Records regulations: The Federal rules restrict any use of the information to criminally investigate or prosecute any alcohol or drug abuse patient.[facility] CenterIn the event this information is protected by the Federal Confidentiality of Alcohol and Drug Abuse Patient Records regulations: The Federal rules restrict any use of the information to criminally investigate or prosecute any alcohol or drug abuse patient.[facility] CenterIn the event this information is protected by the Federal Confidentiality of Alcohol and Drug Abuse Patient Records regulations: The Federal rules restrict any use of the information to criminally investigate or prosecute any alcohol or drug abuse patient.[facility] CenterIn the event this information is protected by the Federal Confidentiality of Alcohol and Drug Abuse Patient Records regulations: The Federal rules restrict any use of the information to criminally investigate or prosecute any alcohol or drug abuse patient.[facility] CenterIn the event this information is protected by the Federal Confidentiality of Alcohol and Drug Abuse Patient Records regulations: The Federal rules restrict any use of the information to criminally investigate or prosecute any alcohol or drug abuse patient.[facility] CenterIn the event this information is protected by the Federal Confidentiality of Alcohol and Drug Abuse Patient Records regulations: The Federal rules restrict any use of the information to criminally investigate or prosecute any alcohol or drug abuse patient.[facility] CenterIn the event this information is protected by the Federal Confidentiality of Alcohol and Drug Abuse Patient Records regulations: The Federal rules restrict any use of the information to criminally investigate or prosecute any alcohol or drug abuse patient.[facility] CenterIn the event this information is protected by the Federal Confidentiality of Alcohol and Drug Abuse Patient Records regulations: The Federal rules restrict any use of the information to criminally investigate or prosecute any alcohol or drug abuse patient.[facility] CenterIn the event this information is protected by the Federal Confidentiality of Alcohol and Drug Abuse Patient Records regulations: The Federal rules restrict any use of the information to criminally investigate or prosecute any alcohol or drug abuse patient.[facility] CenterIn the event this information is protected by the Federal Confidentiality of Alcohol and Drug Abuse Patient Records regulations: The Federal rules restrict any use of the information to criminally investigate or prosecute any alcohol or drug abuse patient.[facility] CenterIn the event this information is protected by the Federal Confidentiality of Alcohol and Drug Abuse Patient Records regulations: The Federal rules restrict any use of the information to criminally investigate or prosecute any alcohol or drug abuse patient.[facility] CenterIn the event this information is protected by the Federal Confidentiality of Alcohol and Drug Abuse Patient Records regulations: The Federal rules restrict any use of the information to criminally investigate or prosecute any alcohol or drug abuse patient.[facility] CenterIn the event this information is protected by the Federal Confidentiality of Alcohol and Drug Abuse Patient Records regulations: The Federal rules restrict any use of the information to criminally investigate or prosecute any alcohol or drug abuse patient.[facility] CenterIn the event this information is protected by the Federal Confidentiality of Alcohol and Drug Abuse Patient Records regulations: The Federal rules restrict any use of the information to criminally investigate or prosecute any alcohol or drug abuse patient.[facility] CenterIn the event this information is protected by the Federal Confidentiality of Alcohol and Drug Abuse Patient Records regulations: The Federal rules restrict any use of the information to criminally investigate or prosecute any alcohol or drug abuse patient.[facility] CenterIn the event this information is protected by the Federal Confidentiality of Alcohol and Drug Abuse Patient Records regulations: The Federal rules restrict any use of the information to criminally investigate or prosecute any alcohol or drug abuse patient.[facility] CenterIn the event this information is protected by the Federal Confidentiality of Alcohol and Drug Abuse Patient Records regulations: The Federal rules restrict any use of the information to criminally investigate or prosecute any alcohol or drug abuse patient.[facility] CenterIn the event this information is protected by the Federal Confidentiality of Alcohol and Drug Abuse Patient Records regulations: The Federal rules restrict any use of the information to criminally investigate or prosecute any alcohol or drug abuse patient.[facility] CenterIn the event this information is protected by the Federal Confidentiality of Alcohol and Drug Abuse Patient Records regulations: The Federal rules restrict any use of the information to criminally investigate or prosecute any alcohol or drug abuse patient.[facility] CenterIn the event this information is protected by the Federal Confidentiality of Alcohol and Drug Abuse Patient Records regulations: The Federal rules restrict any use of the information to criminally investigate or prosecute any alcohol or drug abuse patient.[facility] CenterIn the event this information is protected by the Federal Confidentiality of Alcohol and Drug Abuse Patient Records regulations: The Federal rules restrict any use of the information to criminally investigate or prosecute any alcohol or drug abuse patient.[facility] CenterIn the event this information is protected by the Federal Confidentiality of Alcohol and Drug Abuse Patient Records regulations: The Federal rules restrict any use of the information to criminally investigate or prosecute any alcohol or drug abuse patient.[facility] CenterIn the event this information is protected by the Federal Confidentiality of Alcohol and Drug Abuse Patient Records regulations: The Federal rules restrict any use of the information to criminally investigate or prosecute any alcohol or drug abuse patient.[facility] CenterIn the event this information is protected by the Federal Confidentiality of Alcohol and Drug Abuse Patient Records regulations: The Federal rules restrict any use of the information to criminally investigate or prosecute any alcohol or drug abuse patient.[facility] CenterIn the event this information is protected by the Federal Confidentiality of Alcohol and Drug Abuse Patient Records regulations: The Federal rules restrict any use of the information to criminally investigate or prosecute any alcohol or drug abuse patient.[facility] Care Teams (unrecognized sec tion and content) Barrel Turner Relationship Specialty Start Date End Date Elgin Bal MD [address] [place], [place] [address] PCP - General Family Practice 12/25/12 Anthony Olivares MD [address] [place], [place] [id number] Sales And Marketing Manager Nephrology 03/19/21 Anthony Olivares MD [address] [place], [place] [id number] Primary Staff Physician Nephrology 12/10/21 Barrel Turner Relationship Specialty Start Date End Date Elgin Bal MD [address] [place], [place] [id number] PCP - General Family Practice 12/25/12 Anthony Olivares MD [address] [place] [address] Sales And Marketing Manager Nephrology 03/19/21 Anthony Olivares MD [address] [place] [address] Primary Staff Physician Nephrology 12/10/21 Barrel Turner Relationship Specialty Start Date End Date Elgin Bal MD [address] [place] [address] PCP - General Family Practice 12/25/12 Anthony Olivares MD [address] [place] [address] Sales And Marketing Manager Nephrology 03/19/21 Anthony Olivares MD [address] [place] [address] Primary Staff Physician Nephrology 12/10/21 Barrel Turner Relationship Specialty Start Date End Date Elgin Bal MD [address] [place] [address] PCP - General Family Practice 12/25/12 Anthony Olivares MD [address] [place] [address] Sales And Marketing Manager Nephrology 03/19/21 Anthony Olivares MD [address] [place] [address] Primary Staff Physician Nephrology 12/10/21 Barrel Turner Relationship Specialty Start Date End Date Elgin Bal MD [address] [place] [address] PCP - General [facility] Practice 12/25/12 Anthony Olivares MD [address] [place] [address] Sales And Marketing Manager Nephrology 03/19/21 Anthony Olivares MD [address] [place] [address] Primary Staff Physician Nephrology 12/10/21 Barrel Turner Relationship Specialty Start Date End Date Elgin Bal MD [address] [place] [address], [place] [address] PCP - General Family Practice 12/25/12 Anthony Olivares MD [address] [place] [address] Sales And Marketing Manager Nephrology 03/19/21 Anthony Olivares MD [address] [place] [address] Primary Staff Physician Nephrology 12/10/21 Barrel Turner Relationship Specialty Start Date End Date Elgin Bal MD [address] [place] [address] PCP - General Family Medicine 12/25/12 Anthony Olivares MD [address] [place] [address] Sales And Marketing Manager Nephrology 03/19/21 Anthony Olivares MD [address] [place] [address] Primary Staff Physician Nephrology 12/10/21 Barrel Turner Relationship Specialty Start Date End Date Elgin Bal MD [address] [place] [address] PCP - General Family Medicine 12/25/12 Anthony Olivares MD [address] [place] [address] Sales And Marketing Manager Nephrology 03/19/21 Anthony Olivares MD [address] [place] [address] Primary Staff Physician Nephrology 12/10/21 Barrel Turner Relationship Specialty Start Date End Date Elgin Bal MD [address] [place] [address] PCP - General Family Medicine 12/25/12 Anthony Olivares MD [address] [place], [place] [address] Sales And Marketing Manager Nephrology 03/19/21 Anthony Olivares MD [address] [place] [address] Primary Staff Physician Nephrology 12/10/21 Barrel Turner Relationship Specialty Start Date End Date Elgin Bal MD [address] [place] [address] PCP - General Family Medicine 12/25/12 Anthony Olivares MD [address] [place] [address] Sales And Marketing Manager Nephrology 03/19/21 Anthony Olivares MD [address] [place] [address] Primary Staff Physician Nephrology 12/10/21 Team Status: Active Member Role Status Dates Dr. Elgin Bal MD Family Provider Active Dr. Elgin Bal MD Primary Care Provider Active Team Status: Inactive Member Role Status Dates Dr. Elgin aBl MD Primary Care Provider Active Alfredo Phipps [...] CHANDLER Attending Provider, Referring Prov ider Active Barrel Turner Relationship Specialty Start Date End Date Elgin Bal MD [address] [place] [address] PCP - General Family Medicine 12/25/12 Anthony Olivares MD [address] [place], [place] [id number] Sales And Marketing Manager Nephrology 03/19/21 Anthony Olivares MD [address] [place], [place] [id number] Primary Staff Physician Nephrology 12/10/21 Team Status: Inactive Member Role Status Dates Dr. Elgin Bal MD Primary Care Provider Active Dr. Alfredo Phipps MD Attending Provider Active Team Status: Active Member Role Status Dates Dr. Elgin Bal MD Primary Care Provider Active Adam CHANDLER Attending Provider, Referring Prov ider Active Barrel Turner Relationship Specialty Start Date End Date Elgin Bal MD [address] [place], [place] [address] PCP - General Family Medicine 12/25/12 Anthony Olivares MD [address] [place], [place] [id number] Sales And Marketing Manager Nephrology 03/19/21 Anthony Olivares MD [address] [place], [place] [id number] Primary Staff Physician Nephrology 12/10/21 Barrel Turner Relationship Specialty Start Date End Date Elgin Bal MD [address] [place] [address] PCP - General Family Medicine 12/25/12 Anthony Olivares MD [address] [place] [address] Sales And Marketing Manager Nephrology 03/19/21 Anthony Olivares MD [address] [place], [place] [id number] Primary Staff Physician Nephrology 12/10/21 Barrel Turner Relationship Specialty Start Date End Date Alfredo Phipps MD [address] [facility] [address] [place], [place] [id number] PCP - General Internal Medicine 10/19/23 Anthony Olivares MD [address] [place], [place] [id number] Sales And Marketing Manager Nephrology 03/19/21 Anthony Olivares MD [address] [place] [address] Primary Staff Physician Nephrology 12/10/21 Barrel Turner Relationship Specialty Start Date End Date Alfredo Phipps MD [address] [facility] [address] [place] [address] PCP - General Internal Medicine 10/19/23 Anthony Olivares MD [address] [place] [address] Sales And Marketing Manager Nephrology 03/19/21 Anthony Olivares MD [address] [place] [address] Primary Staff Physician Nephrology 12/10/21 Barrel Turner Relationship Specialty Start Date End Date Alfredo Phipps MD [address] [place] [address] [place] [address] PCP - General Internal Medicine 10/19/23 Anthony Olivares MD [address] [place] [address] Sales And Marketing Manager Nephrology 03/19/21 Anthony Olivares MD [address] [place] [address] Primary Staff Physician Nephrology 12/10/21 Barrel Turner Relationship Specialty Start Date End Date Alfredo Phipps MD [address] [facility] [address] [place] [address] PCP - General Internal Medicine 10/19/23 Anthony Olivares MD [address] [place] [address] Sales And Marketing Manager Nephrology 03/19/21 Anthony Olivares MD [address] [place] [address] Primary Staff Physician Nephrology 12/10/21 Barrel Turner Relationship Specialty Start Date End Date Alfredo Phipps MD [address] [facility] [address] [place] [address] PCP - General Internal Medicine 10/19/23 Anthony Olivares MD [address] [place] [address] Sales And Marketing Manager Nephrology 03/19/21 Anthony Olivares MD [address] [place] [address] Primary Staff Physician Nephrology 12/10/21 Barrel Turner Relationship Specialty Start Date End Date Alfredo Phipps MD [address] [place] [address] [place] [address] PCP - General Internal Medicine 10/19/23 Anthony Olivares MD [address] [place] [address] Sales And Marketing Manager Nephrology 03/19/21 Anthony Olivares MD [address] [place] [address] Primary Staff Physician Nephrology 12/10/21 Barrel Turner Relationship Specialty Start Date End Date Alfredo Phipps MD [address] [place] [address] [place] [address] PCP - General Internal Medicine 10/19/23 Anthony Olivares MD [address] [place] [address] Sales And Marketing Manager Nephrology 03/19/21 Anthony Olivares MD [address] [place] [address] Primary Staff Physician Nephrology 12/10/21 Barrel Turner Relationship Specialty Start Date End Date Alfredo Phipps MD [address] [place] [address] [place] [address] PCP - General Internal Medicine 10/19/23 Anthony Olivares MD [address] [place] [address] Sales And Marketing Manager Nephrology 03/19/21 Anthony Olivares MD [address] [place] [address] Primary Staff Physician Nephrology 12/10/21 Barrel Turner Relationship Specialty Start Date End Date Alfredo Phipps MD [address] [facility] [address] [place] [address] PCP - General Internal Medicine 10/19/23 Anthony Olivares MD [address] [place] [address] Sales And Marketing Manager Nephrology 03/19/21 Anthony Olivares MD [address] [place] [address] Primary Staff Physician Nephrology 12/10/21 Barrel Turner Relationship Specialty Start Date End Date Alfredo Phipps MD [address] [facility] [address] [place] [address] PCP - General Internal Medicine 10/19/23 Anthony Olivares MD [address] [place] [address] Sales And Marketing Manager Nephrology 03/19/21 Anthony Olivares MD [address] [place] [address] Primary Staff Physician Nephrology 12/10/21 Barrel Turner Relationship Specialty Start Date End Date Alfredo Phipps MD [address] [facility] [address] [place] [address] PCP - General Internal Medicine 10/19/23 Anthony Olivares MD [address] [place] [address] Sales And Marketing Manager Nephrology 03/19/21 Anthony Olivares MD [address] [place] [address] Primary Staff Physician Nephrology 12/10/21 Barrel Turner Relationship Specialty Start Date End Date Alfredo Phipps MD [address] [facility] [address] [place] [address] PCP - General Internal Medicine 10/19/23 Anthony Olivares MD [address] [place] [address] Sales And Marketing Manager Nephrology 03/19/21 Anthony Olivares MD [address] [place] [address] Primary Staff Physician Nephrology 12/10/21 Barrel Turner Relationship Specialty Start Date End Date Alfredo Phipps MD [address] [facility] [address] [place] [address] PCP - General Internal Medicine 10/19/23 Anthony Olivares MD [address] [place] [address] Sales And Marketing Manager Nephrology 03/19/21 Anthony Olivares MD [address] [place] [address] Primary Staff Physician Nephrology 12/10/21 Barrel Turner Relationship Specialty Start Date End Date Alfredo Phipps MD [address] [place] [address] [place] [address] PCP - General Internal Medicine 10/19/23 Anthony Olivares MD [address] [place], [place] [id number] Sales And Marketing Manager Nephrology 03/19/21 Anthony Olivares MD [address] [place] [address] Primary Staff Physician Nephrology 12/10/21 [...] January 30, 2025 End: January 30, 2025 Barrel Turner Relationship Specialty Start Date End Date Alfredo Phipps MD [address] [facility] [address] [place] [address] PCP - General Internal Medicine 10/19/23 Anthony Olivares MD [address] [place] [address] Sales And Marketing Manager Nephrology 03/19/21 Anthony Olivares MD [address] [place] [address] Primary Staff Physician Nephrology 12/10/21 Team Status: [...] Provider Active St art: May 02, 2025 Barrel Turner Relationship Specialty Start Date End Date Alfredo Phipps MD [address] [facility] [address] [place] [address] PCP - General Internal Medicine 10/19/23 Anthony Olivares MD [address] [place] [address] Sales And Marketing Manager Nephrology 03/19/21 Anthony Olivares MD [address] [place] [address] Primary Staff Physician Nephrology 12/10/21 Barrel Turner Relationship Specialty Start Date End Date Alfredo Phipps MD [address] [facility] [address] [place] [address] PCP - General Internal Medicine 10/19/23 Anthony Olivares MD [address] [place], [place] [id number] Sales And Marketing Manager Nephrology 03/19/21 Anthony Olivares MD [address] [place], [place] [id number] Primary Staff Physician Nephrology 12/10/21 Barrel Turner Relationship Specialty Start Date End Date Alfredo Phipps MD [address] [facility] [address] [place] [address] PCP - General Internal Medicine 10/19/23 Anthony Olivares MD [address] [place] [address] Sales And Marketing Manager Nephrology 03/19/21 Anthony Olivares MD [address] [place] [address] Primary Staff Physician Nephrology 12/10/21 [...] Status: Active Member Role/Relationship Status Dates Dr. Elign Bal MD Primary care physician Active Start: [...] BE BASED ON THE PRIMARY CLINICAL RECORDS. [employer] [facility]. provides no warranty or guarantee of the accuracy or completeness of information in this document.
[2025-10-09 08:30] LABS: Lithium 0.53 mmol/L (0.60-1.20)
[2025-10-09 08:43] LABS: Hematocrit 36.9 % (40-54); Hemoglobin 12.0 g/dL (13.0-16.5); Immature Granulocytes Count 0.060 X10^3/uL (0.0-0.0); Mean Corp Hgb Conc 32.5 g/dL (32-36); Mean Corpuscular Volume 90.4 fL (80-94); Mean Platelet Vol. 9.2 fl (6.2-12.0); NRBC Flagged by Analyzer 0 % (0-5); Platelet Count 316 K/mm3 (150-450); RBC Distribution Width CV 12.2 % (11.6-14.6); RBC Distribution Width SD 40.4 fl (35.1-43.9); Red Blood Count 4.08 M/mm3 (4.6-6.2); White Blood Count 12.8 K/mm3 (4.4-11.0)
[2025-10-09 08:58] LABS: Creatinine, Urine (random) 87.70 mg/dL (39.00-259.00); Protein, Urine (Random) 9.3 mg/dL (0.0-12.0); Protein:Creat Ratio 106 mg/g CRE (0-200)
[2025-10-09 09:21] LABS: AST(SGOT) 12 U/L (<=37); Alanine Aminotransfer ALT/SGPT 11 U/L (<=46); Albumin, Serum 3.4 g/dL (3.4-4.8); Alkaline Phosphatase 93 U/L (40-129); Anion Gap 11 (5-15); BUN 24 mg/dL (4-19); BUN/Creat Ratio 9.2 RATIO (10-20); Calcium,Total 8.9 mg/dL (7.6-11.0); Carbon Dioxide 23.9 mmol/L (21.0-32.0); Chloride 105 mmol/L (98-108); Globulin 2.6 g/dL (2.2-4.2); Glucose 157 mg/dL (70-99); Potassium 4.3 mmol/L (3.3-5.1)
== END ==
LOC: OLS.SANC 05:00
PROVIDERS: PCP Family Medicine; Visit Provider Internal Medicine
DX: I12.9 Hypertensive chronic kidney disease with stage 1 through stage 4 chronic kidney disease, or unspecified chronic kidney disease (principal); N18.30 Chronic kidney disease, stage 3 unspecified; Z79.899 Other long term (current) drug therapy
CPT/HCPCS: 36415; 80053; 80178; 82570; 84100; 84156; 85025

== ENCOUNTER → 2025-10-15 04:00 | Outpatient (REF) | payer MEDICARE, MEDICAID, SELFPAY ==
--- OUTSIDE RECORDS SUMMARY | 2025-10-15 04:19 | XMS RPT_ITS | CCD ---
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 L 500.4050, L501.2300, L501.9060, L100.0100 #### [facility] [address] [place], [address] Hemoglobin A1c percentageOrd ered By: Alfredo Phipps on 08-09-2025 HbA1c (Bld) [Mass fraction] 6.4 % High <5.7 [facility] Comment on above: Normal < 5.7 % Predi abetic 5.7 - 6.4 % Diabetic >or= 6.5 % Please note range changes. Lithiumon 08-02-2025 LI 0.61 mmol/L Normal 0.60-1.20 [facility] Comment on above: Order Comment: 111-2 Performed By: #### L 500.4050, L501.2300, L501.9060, L100.0100 #### [facility] [address] [place], [place], [address] Vitamin D,25 Hydroxyon 07-31 Vitamin D 25-OH 33.6 ng/mL Normal 30-100 [facility] Comment on above: Order Comment: 111-2 Result Comment: Moriah min D Status Deficiency: <20 ng/mL (50nmol/L) Insufficiency: 20-30 ng/mL (50-75 nmol/L) Sufficiency: 30-100 ng/mL (75-250 nmol/L) Toxicity: >100 ng/mL (>250 nmol/L) Performed By: #### L 500.4050, L501.2300, L501.9060, L100.0100 #### [facility] [address] [place], [place], [address] Absolute lymphocyte countOrd ered By: Alfredo Phipps on 07-29-2025 Lymphocytes Auto (Unsp spec) [#/Vol] 1.68 10*3/uL 0.83-4.51 [facility] Absolute neutrophil countOrd ered By: Alfredo Phipps on 07-29-2025 Neutrophils (Bld) [#/Vol] 5.6 10*3/uL 2.0-7.7 [facility] Anion gap in Serum or Plasma Ordered By: Alfredo Phipps on 07-29-2025 Anion gap [Moles/Vol] 10 mmol/L 03-28 [facility] Automated lymphocyte count a s percentage of total leukocytesOrdered By: Alfredo Phipps on 07-29-2025 Lymphocytes/100 WBC Auto (Unsp spec) 18.7 % Low - [facility] BUN/creatinine ratioOrdered By: Alfredo Phipps on 07-29-2025 Urea nitrogen/Creatinine [Mass ratio] 11.1 mg/mg - [facility] Basophil percentageOrdered B y: Alfredo Phipps on 09-15-2025 Basophils/100 WBC (Bld) 1.2 % High 0-1 [facility] Bilirubin, totalOrdered By: Alfredo Phipps on 07-29-2025 Bilirubin [Mass/Vol] 0.15 mg/dL 0.00-1.30 [facility] CBC W/Diff, Automatedon 07-15 Absolute Lymph 1.68 X10 3/uL Normal 0.83-4.51 [facility] Comment on above: Order Comment: 111-2 Performed By: #### L 500.4050, L501.2300, L501.9060, L100.0100 #### [facility] [address] [place], [address] Absolute Neut 5.6 X10 3/uL Normal 2.0-7.7 [facility] Comment on above: Order Comment: 111-2 Performed By: #### L 500.4050, L501.2300, L501.9060, L100.0100 #### [facility] [address] [place], [address] Basophils/100 WBC (Bld) 1.2 % High 0-1 [facility] Comment on above: Order Comment: 111-2 Performed By: #### L 500.4050, L501.2300, L501.9060, L100.0100 #### [facility] [address] [place], [address] Eosinophils/100 WBC (Bld) 4.2 % Normal 0-5 [facility] Comment on above: Order Comment: 111-2 Performed By: #### L 500.4050, L501.2300, L501.9060, L100.0100 #### [facility] [address] [place], [address] Erythrocyte distribution width (RBC) [Ratio] 12.6 % Normal 11.6-14.6 [facility] Comment on above: Order Comment: 111-2 Performed By: #### L 500.4050, L501.2300, L501.9060, L100.0100 #### [facility] [address] [place], [address] Hematocrit (Bld) [Volume fraction] 38.6 % Low 40-54 [facility] Comment on above: Order Comment: 111-2 Performed By: #### L 500.4050, L501.2300, L501.9060, L100.0100 #### [facility] [address] [place], [address] Hemoglobin (Bld) [Mass/Vol] 12.9 g/dL Low 13.0-16.5 [facility] Comment on above: Order Comment: 111-2 Performed By: #### L 500.4050, L501.2300, L501.9060, L100.0100 #### [facility] [address] [place], [address] IG% 0.400 Normal 0.0-0.9 [facility] Comment on above: Order Comment: 111-2 Result Comment: IG% - Immature Granulocytes (promyelocytes, myelocytes and metamyelocytes) > 1% indicates that a LEFT SHIFT is Present. Performed By: #### L 500.4050, L501.2300, L501.9060, L100.0100 #### [facility] [address] [place], [address] Lymphocytes/100 WBC (Bld) 18.7 % Low 19-41 [facility] Comment on above: Order Comment: 111-2 Performed By: #### L 500.4050, L501.2300, L501.9060, L100.0100 #### [facility] [address] [place], [address] MCH (RBC) [Entitic mass] 30.0 pg Normal 27.0-32.0 [facility] Comment on above: Order Comment: 111-2 Performed By: #### L 500.4050, L501.2300, L501.9060, L100.0100 #### [facility] [address] [place], [address] MCHC (RBC) [Mass/Vol] 33.4 g/dL Normal 32-36 [facility] Comment on above: Order Comment: 111-2 Performed By: #### L 500.4050, L501.2300, L501.9060, L100.0100 #### [facility] [address] [place], [address] MCV (RBC) [Entitic vol] 89.8 fL Normal 80-94 [facility] Comment on above: Order Comment: 111-2 Performed By: #### L 500.4050, L501.2300, L501.9060, L100.0100 #### [facility] [address] [place], [address] Monocytes/100 WBC (Bld) 13.2 % High 0-10 [facility] Comment on above: Order Comment: 111-2 Performed By: #### L 500.4050, L501.2300, L501.9060, L100.0100 #### [facility] [address] [place], [address] Neutrophils/100 WBC (Bld) 62.3 % Normal 47-70 [facility] Comment on above: Order Comment: 111-2 Performed By: #### L 500.4050, L501.2300, L501.9060, L100.0100 #### [facility] [address] [place], [address] Nucleated RBC (Bld) [#/Vol] 0 10*3/uL Normal 0-5 [facility] Comment on above: Order Comment: 111-2 Performed By: #### L 500.4050, L501.2300, L501.9060, L100.0100 #### [facility] [address] [place], [address] Platelet mean volume (Bld) [Entitic vol] 9.6 fL Normal 6.2-12.0 [facility] Comment on above: Order Comment: 111-2 Performed By: #### L 500.4050, L501.2300, L501.9060, L100.0100 #### [facility] [address] [place], [address] Platelets (Bld) [#/Vol] 231 10*3/uL Normal 150-450 [facility] Comment on above: Order Comment: 111-2 Performed By: #### L 500.4050, L501.2300, L501.9060, L100.0100 #### [facility] [address] [place], [address] RBC (Bld) [#/Vol] 4.30 10*6/uL Low 4.6-6.2 [facility] Comment on above: Order Comment: 111-2 Performed By: #### L 500.4050, L501.2300, L501.9060, L100.0100 #### [facility] [address] [place], [address] RDW SD 41.1 fl Normal 35.1-43.9 [facility] Comment on above: Order Comment: 111-2 Performed By: #### L 500.4050, L501.2300, L501.9060, L100.0100 #### [facility] [address] [place], [address] WBC (Bld) [#/Vol] 9.0 10*3/uL Normal 4.4-11.0 [facility] Comment on above: Order Comment: 111-2 Performed By: #### L 500.4050, L501.2300, L501.9060, L100.0100 #### [facility] [address] [place], [address] Carbon dioxide, total [Moles /volume] in Central venous bloodOrdered By: Alfredo Phipps on 07-29-2025 CO2 [Moles/Vol] 22.2 mmol/L 21.0-32.0 [facility] Chloride assayOrdered By: Chan Fiore on 07-29-2025 Chloride [Moles/Vol] 108 mmol/L 98-108 [facility] Comprehensive Metabolic Prof ilon 07-29-2025 Albumin [Mass/Vol] 3.6 g/dL Normal 3.4-4.8 [facility] Comment on above: Order Comment: 111-2 Performed By: #### L 500.4050, L501.2300, L501.9060, L100.0100 #### [facility] [address] [place], [address] Albumin/Globulin [Mass ratio] 1.5 {ratio} Normal 0.9-2.4 [facility] Comment on above: Order Comment: 111-2 Performed By: #### L 500.4050, L501.2300, L501.9060, L100.0100 #### [facility] [address] [place], [address] ALK PHOS 91 U/L Normal 40-129 [facility] Comment on above: Order Comment: 111-2 Performed By: #### L 500.4050, L501.2300, L501.9060, L100.0100 #### [facility] [address] [place], [address] ALT [Catalytic activity/Vol] 12 U/L Normal <=46 [facility] Comment on above: Order Comment: 111-2 Performed By: #### L 500.4050, L501.2300, L501.9060, L100.0100 #### [facility] [address] [place], [address] AST [Catalytic activity/Vol] 12 U/L Normal <=37 [facility] Comment on above: Order Comment: 111-2 Performed By: #### L 500.4050, L501.2300, L501.9060, L100.0100 #### [facility] [address] [place], [address] Bilirubin [Mass/Vol] 0.15 mg/dL Normal 0.00-1.30 [facility] Comment on above: Order Comment: 111-2 Performed By: #### L 500.4050, L501.2300, L501.9060, L100.0100 #### [facility] [address] [place], [address] BUN/CRE 11.1 RATIO Normal 10-20 [facility] Comment on above: Order Comment: 111-2 Performed By: #### L 500.4050, L501.2300, L501.9060, L100.0100 #### [facility] [address] [place], [address] Calcium [Mass/Vol] 9.2 mg/dL Normal 7.6-11.0 [facility] Comment on above: Order Comment: 111-2 Performed By: #### L 500.4050, L501.2300, L501.9060, L100.0100 #### [facility] [address] [place], [address] Chloride [Moles/Vol] 108 mmol/L Normal 98-108 [facility] Comment on above: Order Comment: 111-2 Performed By: #### L 500.4050, L501.2300, L501.9060, L100.0100 #### [facility] [address] [place], [address] CO2 [Moles/Vol] 22.2 mmol/L Normal 21.0-32.0 [facility] Comment on above: Order Comment: 111-2 Performed By: #### L 500.4050, L501.2300, L501.9060, L100.0100 #### [facility] [address] [place], [address] Creatinine [Mass/Vol] 2.36 mg/dL High 0.70-1.20 [facility] Comment on above: Order Comment: 111-2 Performed By: #### L 500.4050, L501.2300, L501.9060, L100.0100 #### [facility] [address] [place], [address] GAP 10 Normal 5-15 [facility] Comment on above: Order Comment: 111-2 Performed By: #### L 500.4050, L501.2300, L501.9060, L100.0100 #### [facility] [address] [place], [address] GFR/1.73 sq M.predicted among non-blacks MDRD (S/P/Bld) [Vol rate/Area] 30 mL/min/{1.73_m2} Low >60 [facility] Comment on above: Order Comment: 111-2 Result Comment: mL/m in/1.73m2 CKD-EPI Creatinine Equation (2020) Performed By: #### L 500.4050, L501.2300, L501.9060, L100.0100 #### [facility] [address] [place], [address] Globulin (S) [Mass/Vol] 2.4 g/dL Normal 2.2-4.2 [facility] Comment on above: Order Comment: 111-2 Performed By: #### L 500.4050, L501.2300, L501.9060, L100.0100 #### [facility] [address] [place], [address] Glucose [Mass/Vol] 136 mg/dL High 70-99 [facility] Comment on above: Order Comment: 111-2 Performed By: #### L 500.4050, L501.2300, L501.9060, L100.0100 #### [facility] [address] [place], [address] Potassium [Moles/Vol] 4.5 mmol/L Normal 3.3-5.1 [facility] Comment on above: Order Comment: 111-2 Performed By: #### L 500.4050, L501.2300, L501.9060, L100.0100 #### [facility] [address] [place], [address] Sodium [Moles/Vol] 140 mmol/L Normal 133-145 [facility] Comment on above: Order Comment: 111-2 Performed By: #### L 500.4050, L501.2300, L501.9060, L100.0100 #### [facility] [address] [place], [address] T PROT 6.0 g/dL Normal 5.9-8.4 [facility] Comment on above: Order Comment: 111-2 Performed By: #### L 500.4050, L501.2300, L501.9060, L100.0100 #### [facility] [address] [place], [address] Urea nitrogen [Mass/Vol] 26 mg/dL High 4-19 [facility] Comment on above: Order Comment: 111-2 Performed By: #### L 500.4050, L501.2300, L501.9060, L100.0100 #### [facility] [address] [place], [address] Eosinophil percentageOrdered By: Alfredo Phipps on 07-29-2025 Eosinophils/100 WBC (Bld) 4.2 % 0-5 [facility] Erythrocyte distribution wid th ratioOrdered By: Alfredo Phipps on 07-29-2025 Erythrocyte distribution width (RBC) [Ratio] 12.6 % 11.6-14.6 [facility] Erythrocyte distribution wid th standard deviationOrdered By: Alfredo Phipps on 07-29-2025 Erythrocyte distribution width (RBC) [Ratio] 41.1 fl 35.1-43.9 [facility] Glomerular filtration rate ( GFR) estimation/1.73 sq m using serum, plasma, or whole bOrdered By: Alfredo Phipps on 07-29-2025 GFR/1.73 sq M.predicted among non-blacks MDRD (S/P/Bld) [Vol rate/Area] 30 mL/min/{1.73_m2} Low >60 [facility] Comment on above: mL/min/1.73m2 CKD-EP I Creatinine Equation (2020) Hematocrit Auto (Bld) [Volum e fraction]Ordered By: Alfredo Phipps on 07-29-2025 Hematocrit (Bld) [Volume fraction] 38.6 % Low 40-54 [facility] Hemoglobin measurementOrdere d By: Alfredo Phipps on 07-29-2025 Hemoglobin (Bld) [Mass/Vol] 12.9 g/dL Low 13.0-16.5 [facility] Immature granulocytes/100 WB C Auto (Bld)Ordered By: Alfredo Phipps on 07-29-2025 Immature granulocytes/100 WBC (Bld) 0.400 % 0.0-0.9 [facility] Comment on above: IG% - Immature Granu locytes (promyelocytes, myelocytes and metamyelocytes) > 1% indicates that a LEFT SHIFT is Present. Laboratory - Chemistry and C hemistry - challengeOrdered By: Alfredo Phipps on 07-29-2025 AST [Catalytic activity/Vol] 12 U/L <38 [facility] MCV (mean corpuscular volume ) determinationOrdered By: Alfredo Phipps on 07-29-2025 MCV (RBC) [Entitic vol] 89.8 fL 80-94 [facility] Mean corpuscular hemoglobin (MCH) determinationOrdered By: Alfredo Phipps on 07-29-2025 MCH (RBC) [Entitic mass] 30.0 pg 27.0-32.0 [facility] Mean corpuscular hemoglobin concentration (MCHC) determinationOrdered By: Alfredo Phipps on 07-29-2025 MCHC (RBC) [Mass/Vol] 33.4 g/dL 32-36 [facility] Mean platelet volume determi nationOrdered By: Alfredo Phipps on 07-29-2025 Platelet mean volume (Bld) [Entitic vol] 9.6 fL 6.2-12.0 [facility] Monocyte percentageOrdered B y: Alfredo Phipps on 07-29-2025 Monocytes/100 WBC (Bld) 13.2 % High 0-10 [facility] Neutrophil percentageOrdered By: Alfredo Phipps on 07-29-2025 Neutrophils/100 WBC (Bld) 62.3 % 47-70 [facility] Nucleated red blood cell per centageOrdered By: Alfredo Phipps on 07-29-2025 Nucleated RBC/100 WBC (Bld) [Ratio] 0 % 0-5 [facility] Phosphoruson 07-29-2025 Phosphate [Mass/Vol] 4.6 mg/dL High 2.7-4.5 [facility] Comment on above: Order Comment: 111-2 Performed By: #### L 500.4050, L501.2300, L501.9060, L100.0100 #### [facility] [address] [place] [address], [address] Platelet countOrdered By: Chan Fiore on 07-29-2025 Platelets (Bld) [#/Vol] 231 10*3/uL 150-450 [facility] Potassium measurement (mass/ volume)Ordered By: Alfredo Phipps on 07-29-2025 Potassium (Unsp spec) [Mass/Vol] 4.5 mmol/L 3.3-5.1 [facility] RBC Auto (Bld) [#/Vol]Ordere d By: Alfredo Phipps on 07-29-2025 RBC (Bld) [#/Vol] 4.30 10*6/uL Low 4.6-6.2 [facility] Serum creatinine measurement (mass/volume)Ordered By: Alfredo Phipps on 07-29-2025 Creatinine [Mass/Vol] 2.36 mg/dL High 0.70-1.20 [facility] Serum globulin measurementOr dered By: Alfredo Phipps on 07-29-2025 Globulin (S) [Mass/Vol] 2.4 g/dL 2.2-4.2 [facility] Serum glucose measurement (m ass/volume)Ordered By: Alfredo Phipps on 07-29-2025 Glucose [Mass/Vol] 136 mg/dL High 70-99 [facility] Serum or plasma alanine sesay otransferase (ALT) measurementOrdered By: Alfredo Phipps on 07-29-2025 ALT [Catalytic activity/Vol] 12 U/L <47 [facility] Serum or plasma albumin you urement (mass/volume)Ordered By: Alfredo Phipps on 07-29-2025 Albumin [Mass/Vol] 3.6 g/dL 3.4-4.8 [facility] Serum or plasma albumin/glob ulin mass ratioOrdered By: Alfredo Phipps on 07-29-2025 Albumin/Globulin [Mass ratio] 1.5 {ratio} 0.9-2.4 [facility] Serum or plasma alkaline hal sphatase measurementOrdered By: Alfredo Phipps on 07-29-2025 ALP [Catalytic activity/Vol] 91 U/L 40-129 [facility] Serum or plasma calcium you urement (mass/volume)Ordered By: Alfredo Phipps on 07-29-2025 Calcium [Mass/Vol] 9.2 mg/dL 7.6-11.0 [facility] Serum or plasma urea nitroge n measurement (mass/volume)Ordered By: Alfredo Phipps on 07-29-2025 Urea nitrogen [Mass/Vol] 26 mg/dL High 4-19 [facility] Sodium levelOrdered By: Raffi Phipps on 07-29-2025 Sodium [Moles/Vol] 140 mmol/L 133-145 [facility] Total proteinOrdered By: Jennifer Phipps on 07-29-2025 Protein [Mass/Vol] 6.0 g/dL 5.9-8.4 [facility] White blood cell (WBC) count Ordered By: Alfredo Phipps on 07-29-2025 WBC (Bld) [#/Vol] 9.0 10*3/uL 4.4-11.0 [facility] Lithiumon 07-02-2025 LI 0.56 mmol/L Low 0.60-1.20 [facility] Comment on above: Order Comment: 111.2 UNKNOWN [id number] Performed By: #### L 501.9060 #### [facility] [address] [place], [address] Bilirubin directOrdered By: Adam Ferraro on 07-01-2025 Bilirubin.direct [Mass/Vol] 0.09 mg/dL 0.00-0.30 [facility] Bilirubin, totalOrdered By: Adam Ferraro on 07-01-2025 Bilirubin [Mass/Vol] 0.16 mg/dL 0.00-1.30 [facility] Laboratory - Chemistry and C hemistry - challengeOrdered By: Adam Ferraro on 07-01-2025 AST [Catalytic activity/Vol] 11 U/L <38 [facility] Liver Profileon 07-01-2025 Albumin [Mass/Vol] 3.5 g/dL Normal 3.4-4.8 [facility] Comment on above: Performed By: #### L 500.4050, L501.2300, L501.9060, L100.0100 #### [facility] [address] [place], [address] ALK PHOS 88 U/L Normal 40-129 [facility] Comment on above: Performed By: #### L 500.4050, L501.2300, L501.9060, L100.0100 #### [facility] [address] [place], [address] ALT [Catalytic activity/Vol] 13 U/L Normal <=46 [facility] Comment on above: Performed By: #### L 500.4050, L501.2300, L501.9060, L100.0100 #### [facility] [address] [place], [address] AST [Catalytic activity/Vol] 11 U/L Normal <=37 [facility] Comment on above: Performed By: #### L 500.4050, L501.2300, L501.9060, L100.0100 #### [facility] [address] [place], [address] Bilirubin [Mass/Vol] 0.16 mg/dL Normal 0.00-1.30 [facility] Comment on above: Performed By: #### L 500.4050, L501.2300, L501.9060, L100.0100 #### [facility] [address] [place], [address] Bilirubin.direct [Mass/Vol] 0.09 mg/dL Normal 0.00-0.30 [facility] Comment on above: Performed By: #### L 500.4050, L501.2300, L501.9060, L100.0100 #### [facility] [address] [place], [address] Globulin (S) [Mass/Vol] 2.4 g/dL Normal 2.2-4.2 [facility] Comment on above: Performed By: #### L 500.4050, L501.2300, L501.9060, L100.0100 #### [facility] [address] [place], [address] T PROT 5.8 g/dL Low 5.9-8.4 [facility] Comment on above: Performed By: #### L 500.4050, L501.2300, L501.9060, L100.0100 #### [facility] [address] [place], [address] Serum globulin measurementOr dered By: Adam Ferraro on 07-01-2025 Globulin (S) [Mass/Vol] 2.4 g/dL 2.2-4.2 [facility] Serum or plasma alanine sesay otransferase (ALT) measurementOrdered By: Adam Ferraro on 07-01-2025 ALT [Catalytic activity/Vol] 13 U/L <47 [facility] Serum or plasma albumin you urement (mass/volume)Ordered By: Adam Ferraro on 07-01-2025 Albumin [Mass/Vol] 3.5 g/dL 3.4-4.8 [facility] Serum or plasma alkaline hal sphatase measurementOrdered By: Adam Jasmine on 07-01-2025 ALP [Catalytic activity/Vol] 88 U/L 40-129 [facility] Total proteinOrdered By: Benoit ivey Jasmine on 07-01-2025 Protein [Mass/Vol] 5.8 g/dL Low 5.9-8.4 [facility] Serum or plasma uric acid me asurement (mass/volume)Ordered By: Adam Ferraro on 06-27-2025 Urate [Mass/Vol] 5.8 mg/dL 3.5-7.2 [facility] Comment on above: The drugs N-Acetylcy steine and Metamizole may falsely depress this assay. Uric Acidon 06-27-2025 URIC 5.8 mg/dL Normal 3.5-7.2 [facility] Comment on above: Order Comment: [id number] Result Comment: The drugs N-Acetylcysteine and Metamizole may falsely depress this assay. Performed By: #### L 500.4050, L501.2300, L501.9060, L100.0100 #### [facility] [address] [place], [address] Protein+Creatinine Ratio,Uri neon 06-20-2025 PROT:CRE RATIO 227 mg/g CRE High 0-200 [facility] Comment on above: Order Comment: [id number] Performed By: #### L 500.4050, L501.2300, L501.9060, L100.0100 #### [facility] [address] [place], [address] UR CREAT 33.80 mg/dL Low 39.00-259.0 0 [facility] Comment on above: Order Comment: [id number] Performed By: #### L 500.4050, L501.2300, L501.9060, L100.0100 #### [facility] [address] [place], [address] Random urine creatinine you urement (mass/volume)Ordered By: Alfredo Phipps on 06-20-2025 Creatinine Unsp time (U) [Mass/Vol] 33.80 mg/dL Low 39.00-259.0 0 [facility] Urine protein measurement (m ass/volume)Ordered By: Alfredo Phipps on 06-20-2025 Protein (U) [Mass/Vol] 7.7 mg/dL Normal 0.0-12.0 [facility] Comment on above: Order Comment: 111-2 [id number] Performed By: #### L 500.4050, L501.2300, L501.9060, L100.0100 #### [facility] [address] [place], [address] Urine protein/creatinine mas s ratioOrdered By: Alfredo Phipps on 06-20-2025 Protein/Creatinine (U) [Mass ratio] 227 mg/g CRE High 0-200 [facility] Absolute lymphocyte countOrd ered By: Alfredo Phipsp on 06-19-2025 Lymphocytes Auto (Unsp spec) [#/Vol] 1.75 10*3/uL 0.83-4.51 [facility] Absolute neutrophil countOrd ered By: Alfredo Phipps on 06-19-2025 Neutrophils (Bld) [#/Vol] 5.4 10*3/uL 2.0-7.7 [facility] Anion gap in Serum or Plasma Ordered By: Alfredo Phipps on 06-19-2025 Anion gap [Moles/Vol] 13 mmol/L 5-15 [facility] Automated lymphocyte count a s percentage of total leukocytesOrdered By: Alfredo Phipps on 06-19-2025 Lymphocytes/100 WBC Auto (Unsp spec) 20.1 % 19-41 [facility] BUN/creatinine ratioOrdered By: Alfredo Phipps on 06-19-2025 Urea nitrogen/Creatinine [Mass ratio] 11.3 mg/mg 10-20 [facility] Basophil percentageOrdered B y: Alfredo Phipps on 06-19-2025 Basophils/100 WBC (Bld) 1.0 % 0-1 [facility] Bilirubin, totalOrdered By: Alfredo Phipps on 06-19-2025 Bilirubin [Mass/Vol] 0.22 mg/dL 0.00-1.30 [facility] CBC W/Diff, Automatedon 08-0 6-2024 Absolute Lymph 1.75 X10 3/uL Normal 0.83-4.51 [facility] Comment on above: Order Comment: 111-2 Performed By: #### L 500.4050, L501.2300, L501.9060, L100.0100 #### [facility] [address] [place], [address] Absolute Neut 5.4 X10 3/uL Normal 2.0-7.7 [facility] Comment on above: Order Comment: 111-2 Performed By: #### L 500.4050, L501.2300, L501.9060, L100.0100 #### [facility] [address] [place], [address] Basophils/100 WBC (Bld) 1.0 % Normal 0-1 [facility] Comment on above: Order Comment: 111-2 Performed By: #### L 500.4050, L501.2300, L501.9060, L100.0100 #### [facility] [address] [place], [address] Eosinophils/100 WBC (Bld) 6.0 % High 0-5 [facility] Comment on above: Order Comment: 111-2 Performed By: #### L 500.4050, L501.2300, L501.9060, L100.0100 #### [facility] [address] [place], [address] Erythrocyte distribution width (RBC) [Ratio] 12.7 % Normal 11.6-14.6 [facility] Comment on above: Order Comment: 111-2 Performed By: #### L 500.4050, L501.2300, L501.9060, L100.0100 #### [facility] [address] [place], [address] Hematocrit (Bld) [Volume fraction] 39.2 % Low 40-54 [facility] Comment on above: Order Comment: 111-2 Performed By: #### L 500.4050, L501.2300, L501.9060, L100.0100 #### [facility] [address] [place], [address] Hemoglobin (Bld) [Mass/Vol] 12.8 g/dL Low 13.0-16.5 [facility] Comment on above: Order Comment: 111-2 Performed By: #### L 500.4050, L501.2300, L501.9060, L100.0100 #### [facility] [address] [place], [address] IG% 0.500 Normal 0.0-0.9 [facility] Comment on above: Order Comment: 111-2 Result Comment: IG% - Immature Granulocytes (promyelocytes, myelocytes and metamyelocytes) > 1% indicates that a LEFT SHIFT is Present. Performed By: #### L 500.4050, L501.2300, L501.9060, L100.0100 #### [facility] [address] [place], [address] Lymphocytes/100 WBC (Bld) 20.1 % Normal 19-41 [facility] Comment on above: Order Comment: 111-2 Performed By: #### L 500.4050, L501.2300, L501.9060, L100.0100 #### [facility] [address] [place], [address] MCH (RBC) [Entitic mass] 30.0 pg Normal 27.0-32.0 [facility] Comment on above: Order Comment: 111-2 Performed By: #### L 500.4050, L501.2300, L501.9060, L100.0100 #### [facility] [address] [place], [address] MCHC (RBC) [Mass/Vol] 32.7 g/dL Normal 32-36 [facility] Comment on above: Order Comment: 111-2 Performed By: #### L 500.4050, L501.2300, L501.9060, L100.0100 #### [facility] [address] [place], [address] MCV (RBC) [Entitic vol] 91.8 fL Normal 80-94 [facility] Comment on above: Order Comment: 111-2 Performed By: #### L 500.4050, L501.2300, L501.9060, L100.0100 #### [facility] [address] [place], [address] Monocytes/100 WBC (Bld) 10.7 % High 0-10 [facility] Comment on above: Order Comment: 111-2 Performed By: #### L 500.4050, L501.2300, L501.9060, L100.0100 #### [facility] [address] [place], [address] Neutrophils/100 WBC (Bld) 61.7 % Normal 47-70 [facility] Comment on above: Order Comment: 111-2 Performed By: #### L 500.4050, L501.2300, L501.9060, L100.0100 #### [facility] [address] [place], [address] Nucleated RBC (Bld) [#/Vol] 0 10*3/uL Normal 0-5 [facility] Comment on above: Order Comment: 111-2 Performed By: #### L 500.4050, L501.2300, L501.9060, L100.0100 #### [facility] [address] [place], [address] Platelet mean volume (Bld) [Entitic vol] 9.5 fL Normal 6.2-12.0 [facility] Comment on above: Order Comment: 111-2 Performed By: #### L 500.4050, L501.2300, L501.9060, L100.0100 #### [facility] [address] [place], [address] Platelets (Bld) [#/Vol] 247 10*3/uL Normal 150-450 [facility] Comment on above: Order Comment: 111-2 Performed By: #### L 500.4050, L501.2300, L501.9060, L100.0100 #### [facility] [address] [place], [address] RBC (Bld) [#/Vol] 4.27 10*6/uL Low 4.6-6.2 [facility] Comment on above: Order Comment: 111-2 Performed By: #### L 500.4050, L501.2300, L501.9060, L100.0100 #### [facility] [address] [place], [address] RDW SD 42.5 fl Normal 35.1-43.9 [facility] Comment on above: Order Comment: 111-2 Performed By: #### L 500.4050, L501.2300, L501.9060, L100.0100 #### [facility] [address] [place], [address] WBC (Bld) [#/Vol] 8.7 10*3/uL Normal 4.4-11.0 [facility] Comment on above: Order Comment: 111-2 Performed By: #### L 500.4050, L501.2300, L501.9060, L100.0100 #### [facility] [address] [place], [address] Carbon dioxide, total [Moles /volume] in Central venous bloodOrdered By: Alfredo Phipps on 06-19-2025 CO2 [Moles/Vol] 19.9 mmol/L Low 21.0-32.0 [facility] Chloride assayOrdered By: Chan Fiore on 06-19-2025 Chloride [Moles/Vol] 105 mmol/L 98-108 [facility] Comprehensive Metabolic Prof ilon 06-19-2025 Albumin [Mass/Vol] 3.6 g/dL Normal 3.4-4.8 [facility] Comment on above: Order Comment: 111-2 Performed By: #### L 500.4050, L501.2300, L501.9060, L100.0100 #### [facility] [address] [place], [address] Albumin/Globulin [Mass ratio] 1.4 {ratio} Normal 0.9-2.4 [facility] Comment on above: Order Comment: 111-2 Performed By: #### L 500.4050, L501.2300, L501.9060, L100.0100 #### [facility] [address] [place], [address] ALK PHOS 91 U/L Normal 40-129 [facility] Comment on above: Order Comment: 111-2 Performed By: #### L 500.4050, L501.2300, L501.9060, L100.0100 #### [facility] [address] [place], [address] ALT [Catalytic activity/Vol] 8 U/L Normal <=46 [facility] Comment on above: Order Comment: 111-2 Performed By: #### L 500.4050, L501.2300, L501.9060, L100.0100 #### [facility] [address] [place], [address] AST [Catalytic activity/Vol] 14 U/L Normal <=37 [facility] Comment on above: Order Comment: 111-2 Performed By: #### L 500.4050, L501.2300, L501.9060, L100.0100 #### [facility] [address] [place], [address] Bilirubin [Mass/Vol] 0.22 mg/dL Normal 0.00-1.30 [facility] Comment on above: Order Comment: 111-2 Performed By: #### L 500.4050, L501.2300, L501.9060, L100.0100 #### [facility] [address] [place], [address] BUN/CRE 11.3 RATIO Normal 10-20 [facility] Comment on above: Order Comment: 111-2 Performed By: #### L 500.4050, L501.2300, L501.9060, L100.0100 #### [facility] [address] [place], [address] Calcium [Mass/Vol] 9.3 mg/dL Normal 7.6-11.0 [facility] Comment on above: Order Comment: 111-2 Performed By: #### L 500.4050, L501.2300, L501.9060, L100.0100 #### [facility] [address] [place], [address] Chloride [Moles/Vol] 105 mmol/L Normal 98-108 [facility] Comment on above: Order Comment: 111-2 Performed By: #### L 500.4050, L501.2300, L501.9060, L100.0100 #### [facility] [address] [place], [address] CO2 [Moles/Vol] 19.9 mmol/L Low 21.0-32.0 [facility] Comment on above: Order Comment: 111-2 Performed By: #### L 500.4050, L501.2300, L501.9060, L100.0100 #### [facility] [address] [place], [address] Creatinine [Mass/Vol] 2.26 mg/dL High 0.70-1.20 [facility] Comment on above: Order Comment: 111-2 Performed By: #### L 500.4050, L501.2300, L501.9060, L100.0100 #### [facility] [address] [place], [address] GAP 13 Normal 5-15 [facility] Comment on above: Order Comment: 111-2 Performed By: #### L 500.4050, L501.2300, L501.9060, L100.0100 #### [facility] [address] [place], [address] GFR/1.73 sq M.predicted among non-blacks MDRD (S/P/Bld) [Vol rate/Area] 32 mL/min/{1.73_m2} Low >60 [facility] Comment on above: Order Comment: 111-2 Result Comment: mL/m in/1.73m2 CKD-EPI Creatinine Equation (2020) Performed By: #### L 500.4050, L501.2300, L501.9060, L100.0100 #### [facility] [address] [place], [address] Globulin (S) [Mass/Vol] 2.5 g/dL Normal 2.2-4.2 [facility] Comment on above: Order Comment: 111-2 Performed By: #### L 500.4050, L501.2300, L501.9060, L100.0100 #### [facility] [address] [place], [address] Glucose [Mass/Vol] 122 mg/dL High 70-99 [facility] Comment on above: Order Comment: 111-2 Performed By: #### L 500.4050, L501.2300, L501.9060, L100.0100 #### [facility] [address] [place], [address] Potassium [Moles/Vol] 4.3 mmol/L Normal 3.3-5.1 [facility] Comment on above: Order Comment: 111-2 Performed By: #### L 500.4050, L501.2300, L501.9060, L100.0100 #### [facility] [address] [place], [address] Sodium [Moles/Vol] 137 mmol/L Normal 133-145 [facility] Comment on above: Order Comment: 111-2 Performed By: #### L 500.4050, L501.2300, L501.9060, L100.0100 #### [facility] [address] [place], [address] T PROT 6.1 g/dL Normal 5.9-8.4 [facility] Comment on above: Order Comment: 111-2 Performed By: #### L 500.4050, L501.2300, L501.9060, L100.0100 #### [facility] [address] [place], [address] Urea nitrogen [Mass/Vol] 26 mg/dL High 4-19 [facility] Comment on above: Order Comment: 111-2 Performed By: #### L 500.4050, L501.2300, L501.9060, L100.0100 #### [facility] [address] [place], [address] Eosinophil percentageOrdered By: Alfredo Phipps on 06-19-2025 Eosinophils/100 WBC (Bld) 6.0 % High 0-5 [facility] Erythrocyte distribution wid th ratioOrdered By: Alfredo Phipps on 06-19-2025 Erythrocyte distribution width (RBC) [Ratio] 12.7 % 11.6-14.6 [facility] Erythrocyte distribution wid th standard deviationOrdered By: Alfredo Phipps on 06-19-2025 Erythrocyte distribution width (RBC) [Ratio] 42.5 fl 35.1-43.9 [facility] Glomerular filtration rate ( GFR) estimation/1.73 sq m using serum, plasma, or whole bOrdered By: Alfredo Phipps on 06-19-2025 GFR/1.73 sq M.predicted among non-blacks MDRD (S/P/Bld) [Vol rate/Area] 32 mL/min/{1.73_m2} Low >60 [facility] Comment on above: mL/min/1.73m2 CKD-EP I Creatinine Equation (2020) Hematocrit Auto (Bld) [Volum e fraction]Ordered By: Alfredo Phipps on 06-19-2025 Hematocrit (Bld) [Volume fraction] 39.2 % Low 40-54 [facility] Hemoglobin measurementOrdere d By: Alfredo Phipps on 06-19-2025 Hemoglobin (Bld) [Mass/Vol] 12.8 g/dL Low 13.0-16.5 [facility] Immature granulocytes/100 WB C Auto (Bld)Ordered By: Alfredo Phipps on 06-19-2025 Immature granulocytes/100 WBC (Bld) 0.500 % 0.0-0.9 [facility] Comment on above: IG% - Immature Granu locytes (promyelocytes, myelocytes and metamyelocytes) > 1% indicates that a LEFT SHIFT is Present. Laboratory - Chemistry and C hemistry - challengeOrdered By: Alfredo Phipps on 06-19-2025 AST [Catalytic activity/Vol] 14 U/L <38 [facility] Lithiumon 06-19-2025 LI 0.56 mmol/L Low 0.60-1.20 [facility] Comment on above: Order Comment: 111-2 Performed By: #### L 500.4050, L501.2300, L501.9060, L100.0100 #### [facility] [address] [place], [address] MCV (mean corpuscular volume ) determinationOrdered By: Alfredo Phipps on 06-19-2025 MCV (RBC) [Entitic vol] 91.8 fL 80-94 [facility] Mean corpuscular hemoglobin (MCH) determinationOrdered By: Alfredo Phipps on 06-19-2025 MCH (RBC) [Entitic mass] 30.0 pg 27.0-32.0 [facility] Mean corpuscular hemoglobin concentration (MCHC) determinationOrdered By: Alfredo Phipps on 06-19-2025 MCHC (RBC) [Mass/Vol] 32.7 g/dL 32-36 [facility] Mean platelet volume determi nationOrdered By: Alfredo Phipps on 06-19-2025 Platelet mean volume (Bld) [Entitic vol] 9.5 fL 6.2-12.0 [facility] Monocyte percentageOrdered B y: Alfredo Phipps on 06-19-2025 Monocytes/100 WBC (Bld) 10.7 % High 0-10 [facility] Neutrophil percentageOrdered By: Alfredo Phipps on 06-19-2025 Neutrophils/100 WBC (Bld) 61.7 % 47-70 [facility] Nucleated red blood cell per centageOrdered By: Alfredo Phipps on 06-19-2025 Nucleated RBC/100 WBC (Bld) [Ratio] 0 % 0-5 [facility] Phosphoruson 06-19-2025 Phosphate [Mass/Vol] 4.5 mg/dL Normal 2.7-4.5 [facility] Comment on above: Order Comment: 111-2 Performed By: #### L 500.4050, L501.2300, L501.9060, L100.0100 #### [facility] [address] [place], [address] Platelet countOrdered By: Chan Fiore on 06-19-2025 Platelets (Bld) [#/Vol] 247 10*3/uL 150-450 [facility] Potassium measurement (mass/ volume)Ordered By: Alfredo Phipps on 06-19-2025 Potassium (Unsp spec) [Mass/Vol] 4.3 mmol/L 3.3-5.1 [facility] RBC Auto (Bld) [#/Vol]Ordere d By: Alfredo Phipps on 06-19-2025 RBC (Bld) [#/Vol] 4.27 10*6/uL Low 4.6-6.2 [facility] Serum creatinine measurement (mass/volume)Ordered By: Alfredo Phipps on 06-19-2025 Creatinine [Mass/Vol] 2.26 mg/dL High 0.70-1.20 [facility] Serum globulin measurementOr dered By: Alfredo Phipps on 06-19-2025 Globulin (S) [Mass/Vol] 2.5 g/dL 2.2-4.2 [facility] Serum glucose measurement (m ass/volume)Ordered By: Alfredo Phipps on 06-19-2025 Glucose [Mass/Vol] 122 mg/dL High 70-99 [facility] Serum or plasma alanine sesay otransferase (ALT) measurementOrdered By: Alfredo Phipps on 06-19-2025 ALT [Catalytic activity/Vol] 8 U/L <47 [facility] Serum or plasma albumin you urement (mass/volume)Ordered By: Alfredo Phipps on 06-19-2025 Albumin [Mass/Vol] 3.6 g/dL 3.4-4.8 [facility] Serum or plasma albumin/glob ulin mass ratioOrdered By: Alfredo Phipps on 06-19-2025 Albumin/Globulin [Mass ratio] 1.4 {ratio} 0.9-2.4 [facility] Serum or plasma alkaline hal sphatase measurementOrdered By: Alfredo Phipps on 06-19-2025 ALP [Catalytic activity/Vol] 91 U/L 40-129 [facility] Serum or plasma calcium you urement (mass/volume)Ordered By: Alfredo Phipps on 06-19-2025 Calcium [Mass/Vol] 9.3 mg/dL 7.6-11.0 [facility] Serum or plasma urea nitroge n measurement (mass/volume)Ordered By: Alfredo Phipps on 06-19-2025 Urea nitrogen [Mass/Vol] 26 mg/dL High 4-19 [facility] Sodium levelOrdered By: Raffi Phipps on 06-19-2025 Sodium [Moles/Vol] 137 mmol/L 133-145 [facility] Total proteinOrdered By: Jennifer Phipps on 06-19-2025 Protein [Mass/Vol] 6.1 g/dL 5.9-8.4 [facility] White blood cell (WBC) count Ordered By: Alfredo Phipps on 06-19-2025 WBC (Bld) [#/Vol] 8.7 10*3/uL 4.4-11.0 [facility] EST Glomerular Filtration Ra meredith 06-05-2025 GFR/1.73 sq M.predicted among non-blacks MDRD (S/P/Bld) [Vol rate/Area] 30 mL/min/{1.73_m2} Low >60 [facility] Comment on above: Order Comment: 111-2 [id number] Result Comment: mL/m in/1.73m2 CKD-EPI Creatinine Equation (2020) Performed By: #### L 500.4050, L501.2300, L501.9060, L100.0100 #### [facility] [address] [place], [place], [address] Glomerular filtration rate ( GFR) estimation/1.73 sq m using serum, plasma, or whole bOrdered By: Adam Ferraro on 06-05-2025 GFR/1.73 sq M.predicted among non-blacks MDRD (S/P/Bld) [Vol rate/Area] 30 mL/min/{1.73_m2} Low >60 [facility] Comment on above: mL/min/1.73m2 CKD-EP I Creatinine Equation (2020) Urine Cultureon 05-29-2025 [facility] Mixed Gram Positive Organisms Deloit Count 11,000-25,000 [facility] Mixed contaminants. Submit a new specimen if indicated. Normal [facility] Comment on above: Performed By: #### L 500.4050, L501.2300, L501.9060, L100.0100 #### [facility] [address] [place], [place], [address] Absolute lymphocyte countOrd ered By: Adam Ferraro on 05-28-2025 Lymphocytes Auto (Unsp spec) [#/Vol] 2.10 10*3/uL 0.83-4.51 [facility] Absolute neutrophil countOrd ered By: Adam Ferraro on 05-28-2025 Neutrophils (Bld) [#/Vol] 5.2 10*3/uL 2.0-7.7 [facility] Automated lymphocyte count a s percentage of total leukocytesOrdered By: Adam Ferraro on 05-28-2025 Lymphocytes/100 WBC Auto (Unsp spec) 23.5 % 19-41 [facility] Basophil percentageOrdered B y: Adam Ferraro on 05-28-2025 Basophils/100 WBC (Bld) 1.0 % 0-1 [facility] CBC W/Diff, Automatedon 05-14 Absolute Lymph 2.10 X10 3/uL Normal 0.83-4.51 [facility] Comment on above: Order Comment: [id number] Performed By: #### L 500.4050, L501.2300, L501.9060, L100.0100 #### [facility] [address] [place], [address] Absolute Neut 5.2 X10 3/uL Normal 2.0-7.7 [facility] Comment on above: Order Comment: 20250814 Performed By: #### L 500.4050, L501.2300, L501.9060, L100.0100 #### [facility] [address] [place], [address] Basophils/100 WBC (Bld) 1.0 % Normal 0-1 [facility] Comment on above: Order Comment: 20250814 Performed By: #### L 500.4050, L501.2300, L501.9060, L100.0100 #### [facility] [address] [place], [address] Eosinophils/100 WBC (Bld) 5.5 % High 0-5 [facility] Comment on above: Order Comment: [id number] Performed By: #### L 500.4050, L501.2300, L501.9060, L100.0100 #### [facility] [address] [place], [address] Erythrocyte distribution width (RBC) [Ratio] 12.5 % Normal 11.6-14.6 [facility] Comment on above: Order Comment: 111-2 [id number] Performed By: #### L 500.4050, L501.2300, L501.9060, L100.0100 #### [facility] [address] [place], [address] Hematocrit (Bld) [Volume fraction] 39.7 % Low 40-54 [facility] Comment on above: Order Comment: [id number] Performed By: #### L 500.4050, L501.2300, L501.9060, L100.0100 #### [facility] [address] [place], [address] Hemoglobin (Bld) [Mass/Vol] 13.3 g/dL Normal 13.0-16.5 [facility] Comment on above: Order Comment: [id number] Performed By: #### L 500.4050, L501.2300, L501.9060, L100.0100 #### [facility] [address] [place], [address] IG% 0.700 Normal 0.0-0.9 [facility] Comment on above: Order Comment: [id number] Result Comment: IG% - Immature Granulocytes (promyelocytes, myelocytes and metamyelocytes) > 1% indicates that a LEFT SHIFT is Present. Performed By: #### L 500.4050, L501.2300, L501.9060, L100.0100 #### [facility] [address] [place], [address] Lymphocytes/100 WBC (Bld) 23.5 % Normal 19-41 [facility] Comment on above: Order Comment: [id number] Performed By: #### L 500.4050, L501.2300, L501.9060, L100.0100 #### [facility] [address] [place], [address] MCH (RBC) [Entitic mass] 30.2 pg Normal 27.0-32.0 [facility] Comment on above: Order Comment: 20250814 Performed By: #### L 500.4050, L501.2300, L501.9060, L100.0100 #### [facility] [address] [place], [address] MCHC (RBC) [Mass/Vol] 33.5 g/dL Normal 32-36 [facility] Comment on above: Order Comment: [id number] Performed By: #### L 500.4050, L501.2300, L501.9060, L100.0100 #### [facility] [address] [place], [address] MCV (RBC) [Entitic vol] 90.0 fL Normal 80-94 [facility] Comment on above: Order Comment: 20250814 Performed By: #### L 500.4050, L501.2300, L501.9060, L100.0100 #### [facility] [address] [place], [address] Monocytes/100 WBC (Bld) 11.1 % High 0-10 [facility] Comment on above: Order Comment: 20250814 Performed By: #### L 500.4050, L501.2300, L501.9060, L100.0100 #### [facility] [address] [place], [address] Neutrophils/100 WBC (Bld) 58.2 % Normal 47-70 [facility] Comment on above: Order Comment: [id number] Performed By: #### L 500.4050, L501.2300, L501.9060, L100.0100 #### [facility] [address] [place], [address] Nucleated RBC (Bld) [#/Vol] 0 10*3/uL Normal 0-5 [facility] Comment on above: Order Comment: [id number] 0100 Performed By: #### L 500.4050, L501.2300, L501.9060, L100.0100 #### [facility] [address] [place], [address] Platelet mean volume (Bld) [Entitic vol] 9.2 fL Normal 6.2-12.0 [facility] Comment on above: Order Comment: [id number] 010 Performed By: #### L 500.4050, L501.2300, L501.9060, L100.0100 #### [facility] [address] [place], [address] Platelets (Bld) [#/Vol] 235 10*3/uL Normal 150-450 [facility] Comment on above: Order Comment: [id number] Performed By: #### L 500.4050, L501.2300, L501.9060, L100.0100 #### [facility] [address] [place], [address] RBC (Bld) [#/Vol] 4.41 10*6/uL Low 4.6-6.2 [facility] Comment on above: Order Comment: [id number] Performed By: #### L 500.4050, L501.2300, L501.9060, L100.0100 #### [facility] [address] [place], [address] RDW SD 41.1 fl Normal 35.1-43.9 [facility] Comment on above: Order Comment: [id number] Performed By: #### L 500.4050, L501.2300, L501.9060, L100.0100 #### [facility] [address] [place], [address] WBC (Bld) [#/Vol] 8.9 10*3/uL Normal 4.4-11.0 [facility] Comment on above: Order Comment: 111-2 [id number] Performed By: #### L 500.4050, L501.2300, L501.9060, L100.0100 #### [facility] [address] [place], [address] Eosinophil percentageOrdered By: Adam Ferraro on 05-28-2025 Eosinophils/100 WBC (Bld) 5.5 % High 0-5 [facility] Erythrocyte distribution wid th ratioOrdered By: Adam Ferraro on 05-28-2025 Erythrocyte distribution width (RBC) [Ratio] 12.5 % 11.6-14.6 [facility] Erythrocyte distribution wid th standard deviationOrdered By: Adam Ferraro on 05-28-2025 Erythrocyte distribution width (RBC) [Ratio] 41.1 fl 35.1-43.9 [facility] Hematocrit Auto (Bld) [Volum e fraction]Ordered By: Adam Ferraro on 05-28-2025 Hematocrit (Bld) [Volume fraction] 39.7 % Low 40-54 [facility] Hemoglobin measurementOrdere d By: Adam Ferraro on 05-28-2025 Hemoglobin (Bld) [Mass/Vol] 13.3 g/dL 13.0-16.5 [facility] Immature granulocytes/100 WB C Auto (Bld)Ordered By: Adam Ferraro on 05-28-2025 Immature granulocytes/100 WBC (Bld) 0.700 % 0.0-0.9 [facility] Comment on above: IG% - Immature Granu locytes (promyelocytes, myelocytes and metamyelocytes) > 1% indicates that a LEFT SHIFT is Present. MCV (mean corpuscular volume ) determinationOrdered By: Adam Ferraro on 05-28-2025 MCV (RBC) [Entitic vol] 90.0 fL 80-94 [facility] Mean corpuscular hemoglobin (MCH) determinationOrdered By: Adam Ferraro 05-28-2025 MCH (RBC) [Entitic mass] 30.2 pg 27.0-32.0 [facility] Mean corpuscular hemoglobin concentration (MCHC) determinationOrdered By: Adam Ferraro on 05-28-2025 MCHC (RBC) [Mass/Vol] 33.5 g/dL 32-36 [facility] Mean platelet volume determi nationOrdered By: Adam Ferraro on 05-28-2025 Platelet mean volume (Bld) [Entitic vol] 9.2 fL 6.2-12.0 [facility] Monocyte percentageOrdered B y: Adam Ferraro on 05-28-2025 Monocytes/100 WBC (Bld) 11.1 % High 0-10 [facility] Neutrophil percentageOrdered By: Adam Ferraro on 05-28-2025 Neutrophils/100 WBC (Bld) 58.2 % 47-70 [facility] Nucleated red blood cell per centageOrdered By: Adam Ferraro on 05-28-2025 Nucleated RBC/100 WBC (Bld) [Ratio] 0 % 0-5 [facility] Platelet countOrdered By: Sabino Ferraro on 05-28-2025 Platelets (Bld) [#/Vol] 235 10*3/uL 150-450 [facility] RBC Auto (Bld) [#/Vol]Ordere d By: Adam Ferraro on 05-28-2025 RBC (Bld) [#/Vol] 4.41 10*6/uL Low 4.6-6.2 [facility] White blood cell (WBC) count Ordered By: Adam Ferraro on 05-28-2025 WBC (Bld) [#/Vol] 8.9 10*3/uL 4.4-11.0 [facility] Protein+Creatinine Ratio,Uri neon 05-27-2025 PROT:CRE RATIO 172 mg/g CRE Normal 0-200 [facility] Comment on above: Performed By: #### L 500.4050, L501.2300, L501.9060, L100.0100 #### [facility] [address] [place], [place], [id number] PROTEIN,UR.RAN. < 6.0 Normal 0.0-12.0 [facility] Comment on above: Performed By: #### L 500.4050, L501.2300, L501.9060, L100.0100 #### [facility] [address] [place], [address] UR CREAT 25.50 mg/dL Low 39.00-259.0 0 [facility] Comment on above: Performed By: #### L 500.4050, L501.2300, L501.9060, L100.0100 #### [facility] [address] [place], [address] Uric Acidon 05-27-2025 URIC 6.3 mg/dL Normal 3.5-7.2 [facility] Comment on above: Order Comment: URIC ACID ADDED TO 05/24/25 LABWORK Result Comment: The drugs N-Acetylcysteine and Metamizole may falsely depress this assay. Performed By: #### L 100.0500, L500.4050, L501.1400 #### [facility] [address] [place], [address] Urinalysis, Routine (Dipstic k)on 05-27-2025 BILIRUBIN URINE Negative Normal Negative [facility] Comment on above: Order Comment: [id number] Performed By: #### L 500.4050, L501.2300, L501.9060, L100.0100 #### [facility] [address] [place], [address] Clarity (U) Clear Normal Clear [facility] Comment on above: Order Comment: [id number] Performed By: #### L 500.4050, L501.2300, L501.9060, L100.0100 #### [facility] [address] [place], [address] Color (U) Straw Normal Yellow [facility] Comment on above: Order Comment: [id number] Performed By: #### L 500.4050, L501.2300, L501.9060, L100.0100 #### [facility] [address] [place], [address] GLUCOSE, UR Normal Normal Normal [facility] Comment on above: Order Comment: [id number] Performed By: #### L 500.4050, L501.2300, L501.9060, L100.0100 #### [facility] [address] [place], [address] KETONE UR Negative Normal Negative [facility] Comment on above: Order Comment: [id number] Performed By: #### L 500.4050, L501.2300, L501.9060, L100.0100 #### [facility] [address] [place], [address] LEUK ESTERASE 500 /ul Abnormal Negative [facility] Comment on above: Order Comment: [id number] Performed By: #### L 500.4050, L501.2300, L501.9060, L100.0100 #### [facility] [address] [place], [address] Nitrite Ql (U) Negative Normal Negative [facility] Comment on above: Order Comment: [id number] Performed By: #### L 500.4050, L501.2300, L501.9060, L100.0100 #### [facility] [address] [place], [address] OCCULT BLOOD-UR Negative Normal Negative [facility] Comment on above: Order Comment: 20250814 Performed By: #### L 500.4050, L501.2300, L501.9060, L100.0100 #### [facility] [address] [place], [address] pH UR 6.5 Normal 5.0 - 8.0 [facility] Comment on above: Order Comment: [id number] Performed By: #### L 500.4050, L501.2300, L501.9060, L100.0100 #### [facility] [address] [place], [address] PROT DIPSTX Negative Normal Negative [facility] Comment on above: Order Comment: [id number] Performed By: #### L 500.4050, L501.2300, L501.9060, L100.0100 #### [facility] [address] [place], [address] SP.GR. DIPSTX 1.005 Normal 1.002-1.030 [facility] Comment on above: Order Comment: [id number] Performed By: #### L 500.4050, L501.2300, L501.9060, L100.0100 #### [facility] [address] [place], [address] UROBILI Normal Normal Normal [facility] Comment on above: Order Comment: [id number] Performed By: #### L 500.4050, L501.2300, L501.9060, L100.0100 #### [facility] [address] [place], [address] Bilirubin Test strip Ql (U)O rdered By: Adam Ferraro on 05-26-2025 Bilirubin Ql (U) Negative Negative [facility] Ketones Test strip Ql (U)Ord ered By: Adam Ferraro on 05-26-2025 Ketones Ql (U) Negative Negative [facility] Nitrite Test strip Ql (U)Ord ered By: Adam Ferraro on 05-26-2025 Nitrite Ql (U) Negative Negative [facility] Protein Test strip Ql (U)Ord ered By: Adam Ferraro on 05-26-2025 Protein Ql (U) Negative Negative [facility] Random urine creatinine you urement (mass/volume)Ordered By: Adam Ferraro on 05-26-2025 Creatinine Unsp time (U) [Mass/Vol] 25.50 mg/dL Low 39.00-259.0 0 [facility] Urine clarityOrdered By: Benoit Ferraro on 05-26-2025 Clarity (U) Clear Clear [facility] Urine color determinationOrd ered By: Adam Ferraro on 05-26-2025 Color (U) Straw Yellow [facility] Urine cultureOrdered By: Benoit Ferraro on 05-26-2025 Bacteria identified Cx Nom (U) Positive Abnormal [facility] Urine glucose detectionOrder ed By: Adam Ferraro on 05-26-2025 Glucose Ql (U) Normal mg/dl Normal [facility] Urine leukocyte esterase det ection by dipstickOrdered By: Adam Ferraro on 05-26-2025 Leukocyte esterase Test strip Ql (U) 500 /ul High Negative [facility] Urine pHOrdered By: Adam Ferraro on 05-26-2025 pH (U) 6.5 [pH] 5.0 - 8.0 [facility] Urine protein measurement (m ass/volume)Ordered By: Adam Ferraro on 05-26-2025 Protein (U) [Mass/Vol] mg/dL 0.0-12.0 [facility] Urine protein/creatinine mas s ratioOrdered By: Adam Ferraro on 05-26-2025 Protein/Creatinine (U) [Mass ratio] 172 mg/g CRE 0-200 [facility] Urine specific gravity measu rementOrdered By: Adam Ferraro on 05-26-2025 Specific gravity (U) [Rel density] 1.005 1.002-1.030 [facility] Urine urobilinogen measureme ntOrdered By: Adam Ferraro on 05-26-2025 Urobilinogen Ql (U) Normal mg/dl Normal [facility] Anion gap in Serum or Plasma Ordered By: Adam Ferraro on 05-24-2025 Anion gap [Moles/Vol] 10 mmol/L 5-15 [facility] BUN/creatinine ratioOrdered By: Adam Ferraro on 05-24-2025 Urea nitrogen/Creatinine [Mass ratio] 11.9 mg/mg 10-20 [facility] Bilirubin, totalOrdered By: Adam Ferraro on 05-24-2025 Bilirubin [Mass/Vol] 0.15 mg/dL 0.00-1.30 [facility] CBC-Complete Blood Cnt No Di ffon 05-24-2025 Erythrocyte distribution width (RBC) [Ratio] 12.7 % Normal 11.6-14.6 [facility] Comment on above: Order Comment: 111.2 Performed By: #### L 100.0500, L500.4050, L501.1400 #### [facility] [address] [place], [address] Hematocrit (Bld) [Volume fraction] 39.2 % Low 40-54 [facility] Comment on above: Order Comment: 111.2 Performed By: #### L 100.0500, L500.4050, L501.1400 #### [facility] [address] [place], [address] Hemoglobin (Bld) [Mass/Vol] 12.9 g/dL Low 13.0-16.5 [facility] Comment on above: Order Comment: 111.2 Performed By: #### L 100.0500, L500.4050, L501.1400 #### [facility] [address] [place], [address] MCH (RBC) [Entitic mass] 30.1 pg Normal 27.0-32.0 [facility] Comment on above: Order Comment: 111.2 Performed By: #### L 100.0500, L500.4050, L501.1400 #### [facility] [address] [place], [address] MCHC (RBC) [Mass/Vol] 32.9 g/dL Normal 32-36 [facility] Comment on above: Order Comment: 111.2 Performed By: #### L 100.0500, L500.4050, L501.1400 #### [facility] [address] [place], [address] MCV (RBC) [Entitic vol] 91.6 fL Normal 80-94 [facility] Comment on above: Order Comment: 111.2 Performed By: #### L 100.0500, L500.4050, L501.1400 #### [facility] [address] [place], [address] Platelet mean volume (Bld) [Entitic vol] 9.2 fL Normal 6.2-12.0 [facility] Comment on above: Order Comment: 111.2 Performed By: #### L 100.0500, L500.4050, L501.1400 #### [facility] [address] [place], [address] Platelets (Bld) [#/Vol] 247 10*3/uL Normal 150-450 [facility] Comment on above: Order Comment: 111.2 Performed By: #### L 100.0500, L500.4050, L501.1400 #### [facility] [address] [place], [address] RBC (Bld) [#/Vol] 4.28 10*6/uL Low 4.6-6.2 [facility] Comment on above: Order Comment: 111.2 Performed By: #### L 100.0500, L500.4050, L501.1400 #### [facility] [address] [place], [address] RDW SD 42.1 fl Normal 35.1-43.9 [facility] Comment on above: Order Comment: 111.2 Performed By: #### L 100.0500, L500.4050, L501.1400 #### [facility] [address] [place], [address] WBC (Bld) [#/Vol] 10.3 10*3/uL Normal 4.4-11.0 [facility] Comment on above: Order Comment: 111.2 Performed By: #### L 100.0500, L500.4050, L501.1400 #### [facility] [address] [place], [address] Carbon dioxide, total [Moles /volume] in Central venous bloodOrdered By: Adam Ferraro on 05-24-2025 CO2 [Moles/Vol] 21.9 mmol/L 21.0-32.0 [facility] Chloride assayOrdered By: Sabino Ferraro on 05-24-2025 Chloride [Moles/Vol] 107 mmol/L 98-108 [facility] Comprehensive Metabolic Prof ilon 05-24-2025 Albumin [Mass/Vol] 3.7 g/dL Normal 3.4-4.8 [facility] Comment on above: Order Comment: 111.2 Performed By: #### L 100.0500, L500.4050, L501.1400 #### [facility] [address] [place], [address] Albumin/Globulin [Mass ratio] 1.6 {ratio} Normal 0.9-2.4 [facility] Comment on above: Order Comment: 111.2 Performed By: #### L 100.0500, L500.4050, L501.1400 #### [facility] [address] [place], [address] ALK PHOS 80 U/L Normal 40-129 [facility] Comment on above: Order Comment: 111.2 Performed By: #### L 100.0500, L500.4050, L501.1400 #### [facility] [address] [place], [address] ALT [Catalytic activity/Vol] 10 U/L Normal <=46 [facility] Comment on above: Order Comment: 111.2 Performed By: #### L 100.0500, L500.4050, L501.1400 #### [facility] [address] [place], [address] AST [Catalytic activity/Vol] 12 U/L Normal <=37 [facility] Comment on above: Order Comment: 111.2 Performed By: #### L 100.0500, L500.4050, L501.1400 #### [facility] [address] [place], [address] Bilirubin [Mass/Vol] 0.15 mg/dL Normal 0.00-1.30 [facility] Comment on above: Order Comment: 111.2 Performed By: #### L 100.0500, L500.4050, L501.1400 #### [facility] [address] [place], [address] BUN/CRE 11.9 RATIO Normal 10-20 [facility] Comment on above: Order Comment: 111.2 Performed By: #### L 100.0500, L500.4050, L501.1400 #### [facility] [address] [place], [address] Calcium [Mass/Vol] 9.2 mg/dL Normal 7.6-11.0 [facility] Comment on above: Order Comment: 111.2 Performed By: #### L 100.0500, L500.4050, L501.1400 #### [facility] [address] [place], [address] Chloride [Moles/Vol] 107 mmol/L Normal 98-108 [facility] Comment on above: Order Comment: 111.2 Performed By: #### L 100.0500, L500.4050, L501.1400 #### [facility] [address] [place], [address] CO2 [Moles/Vol] 21.9 mmol/L Normal 21.0-32.0 [facility] Comment on above: Order Comment: 111.2 Performed By: #### L 100.0500, L500.4050, L501.1400 #### [facility] [address] [place], [address] Creatinine [Mass/Vol] 2.10 mg/dL High 0.70-1.20 [facility] Comment on above: Order Comment: 111.2 Performed By: #### L 100.0500, L500.4050, L501.1400 #### [facility] [address] [place], [address] GAP 10 Normal 5-15 [facility] Comment on above: Order Comment: 111.2 Performed By: #### L 100.0500, L500.4050, L501.1400 #### [facility] [address] [place], [address] GFR/1.73 sq M.predicted among non-blacks MDRD (S/P/Bld) [Vol rate/Area] 35 mL/min/{1.73_m2} Low >60 [facility] Comment on above: Order Comment: 111.2 Result Comment: mL/m in/1.73m2 CKD-EPI Creatinine Equation (2020) Performed By: #### L 100.0500, L500.4050, L501.1400 #### [facility] [address] [place], [address] Globulin (S) [Mass/Vol] 2.3 g/dL Normal 2.2-4.2 [facility] Comment on above: Order Comment: 111.2 Performed By: #### L 100.0500, L500.4050, L501.1400 #### [facility] [address] [place], [address] Glucose [Mass/Vol] 116 mg/dL High 70-99 [facility] Comment on above: Order Comment: 111.2 Performed By: #### L 100.0500, L500.4050, L501.1400 #### [facility] [address] [place], [address] Potassium [Moles/Vol] 4.4 mmol/L Normal 3.3-5.1 [facility] Comment on above: Order Comment: 111.2 Performed By: #### L 100.0500, L500.4050, L501.1400 #### [facility] [address] [place], [address] Sodium [Moles/Vol] 139 mmol/L Normal 133-145 [facility] Comment on above: Order Comment: 111.2 Performed By: #### L 100.0500, L500.4050, L501.1400 #### [facility] [address] [place], [address] T PROT 6.0 g/dL Normal 5.9-8.4 [facility] Comment on above: Order Comment: 111.2 Performed By: #### L 100.0500, L500.4050, L501.1400 #### [facility] [address] [place], [address] Urea nitrogen [Mass/Vol] 25 mg/dL High 4-19 [facility] Comment on above: Order Comment: 111.2 Performed By: #### L 100.0500, L500.4050, L501.1400 #### [facility] [address] [place], [address] Erythrocyte distribution wid th ratioOrdered By: Adam Ferraro on 05-24-2025 Erythrocyte distribution width (RBC) [Ratio] 12.7 % 11.6-14.6 [facility] Erythrocyte distribution wid th standard deviationOrdered By: Adam Ferraro on 05-24-2025 Erythrocyte distribution width (RBC) [Ratio] 42.1 fl 35.1-43.9 [facility] Glomerular filtration rate ( GFR) estimation/1.73 sq m using serum, plasma, or whole bOrdered By: Adam Ferraro on 05-24-2025 GFR/1.73 sq M.predicted among non-blacks MDRD (S/P/Bld) [Vol rate/Area] 35 mL/min/{1.73_m2} Low >60 [facility] Comment on above: mL/min/1.73m2 CKD-EP I Creatinine Equation (2020) Hematocrit Auto (Bld) [Volum e fraction]Ordered By: Adam Ferraro on 05-24-2025 Hematocrit (Bld) [Volume fraction] 39.2 % Low 40-54 [facility] Hemoglobin measurementOrdere d By: Adam Ferraro on 05-24-2025 Hemoglobin (Bld) [Mass/Vol] 12.9 g/dL Low 13.0-16.5 [facility] - Chemistry and C hemistry - challengeOrdered By: Adam Ferraro on 05-24-2025 AST [Catalytic activity/Vol] 12 U/L <38 [facility] MCV (mean corpuscular volume ) determinationOrdered By: Adam Ferraro on 05-24-2025 MCV (RBC) [Entitic vol] 91.6 fL 80-94 [facility] Mean corpuscular hemoglobin (MCH) determinationOrdered By: Adam Ferraro on 05-24-2025 MCH (RBC) [Entitic mass] 30.1 pg 27.0-32.0 [facility] Mean corpuscular hemoglobin concentration (MCHC) determinationOrdered By: Adam Ferraro on 05-24-2025 MCHC (RBC) [Mass/Vol] 32.9 g/dL 32-36 [facility] Mean platelet volume determi nationOrdered By: Adam Ferraro on 05-24-2025 Platelet mean volume (Bld) [Entitic vol] 9.2 fL 6.2-12.0 [facility] Platelet countOrdered By: Sabino Ferraro on 05-24-2025 Platelets (Bld) [#/Vol] 247 10*3/uL 150-450 [facility] Potassium measurement (mass/ volume)Ordered By: Adam Ferraro on 05-24-2025 Potassium (Unsp spec) [Mass/Vol] 4.4 mmol/L 3.3-5.1 [facility] RBC Auto (Bld) [#/Vol]Ordere d By: Adam Ferraro on 05-24-2025 RBC (Bld) [#/Vol] 4.28 10*6/uL Low 4.6-6.2 [facility] Serum creatinine measurement (mass/volume)Ordered By: Adam Ferraro on 05-24-2025 Creatinine [Mass/Vol] 2.10 mg/dL High 0.70-1.20 [facility] Serum globulin measurementOr dered By: Adam Ferraro on 05-24-2025 Globulin (S) [Mass/Vol] 2.3 g/dL 2.2-4.2 [facility] Serum glucose measurement (m ass/volume)Ordered By: Adam Ferraro on 05-24-2025 Glucose [Mass/Vol] 116 mg/dL High 70-99 [facility] Serum or plasma alanine sesay otransferase (ALT) measurementOrdered By: Adam Ferraro on 05-24-2025 ALT [Catalytic activity/Vol] 10 U/L <47 [facility] Serum or plasma albumin you urement (mass/volume)Ordered By: Adam Ferraro on 05-24-2025 Albumin [Mass/Vol] 3.7 g/dL 3.4-4.8 [facility] Serum or plasma albumin/glob ulin mass ratioOrdered By: Adam Ferraro on 05-24-2025 Albumin/Globulin [Mass ratio] 1.6 {ratio} 0.9-2.4 [facility] Serum or plasma alkaline hal sphatase measurementOrdered By: Adam Ferraro on 05-24-2025 ALP [Catalytic activity/Vol] 80 U/L 40-129 [facility] Serum or plasma calcium you urement (mass/volume)Ordered By: Adam Ferraro on 05-24-2025 Calcium [Mass/Vol] 9.2 mg/dL 7.6-11.0 [facility] Serum or plasma urea nitroge n measurement (mass/volume)Ordered By: Adam Ferraro on 05-24-2025 Urea nitrogen [Mass/Vol] 25 mg/dL High 4-19 [facility] Serum or plasma uric acid me asurement (mass/volume)Ordered By: Adam Ferraro on 05-24-2025 Urate [Mass/Vol] 6.3 mg/dL 3.5-7.2 [facility] Comment on above: The drugs N-Acetylcy steine and Metamizole may falsely depress this assay. Sodium levelOrdered By: Spike Ferraro on 05-24-2025 Sodium [Moles/Vol] 139 mmol/L 133-145 [facility] Total proteinOrdered By: Benoit Ferraro on 05-24-2025 Protein [Mass/Vol] 6.0 g/dL 5.9-8.4 [facility] White blood cell (WBC) count Ordered By: Adam Ferraro on 05-24-2025 WBC (Bld) [#/Vol] 10.3 10*3/uL 4.4-11.0 [facility] Lithiumon 05-02-2025 LI 0.53 mmol/L Low 0.60-1.20 [facility] Comment on above: Order Comment: 111-2 Performed By: #### L 500.4050, L501.2300, L501.9060, L100.0100 #### [facility] [address] [place], [place], [address] Serum or plasma uric acid me asurement (mass/volume)Ordered By: Alfredo Phipps on 04-26-2025 Urate [Mass/Vol] 6.3 mg/dL 3.5-7.2 [facility] Comment on above: The drugs N-Acetylcy steine and Metamizole may falsely depress this assay. Uric Acidon 04-26-2025 URIC 6.3 mg/dL Normal 3.5-7.2 [facility] Comment on above: Order Comment: 111-2 Result Comment: The drugs N-Acetylcysteine and Metamizole may falsely depress this assay. Performed By: #### L 501.1400 #### [facility] [address] [place], [place], [id number] Absolute lymphocyte countOrd ered By: Adam Ferraro on 04-24-2025 Lymphocytes Auto (Unsp spec) [#/Vol] 2.17 10*3/uL 0.83-4.51 [facility] Absolute neutrophil countOrd ered By: Adam Ferraro on 04-24-2025 Neutrophils (Bld) [#/Vol] 6.4 10*3/uL 2.0-7.7 [facility] Anion gap in Serum or Plasma Ordered By: Adam Ferraro on 04-24-2025 Anion gap [Moles/Vol] 12 mmol/L 5-15 [facility] Automated lymphocyte count a s percentage of total leukocytesOrdered By: Adam Ferraro on 04-24-2025 Lymphocytes/100 WBC Auto (Unsp spec) 21.0 % - [facility] BUN/creatinine ratioOrdered By: Adam Ferraro on 04-24-2025 Urea nitrogen/Creatinine [Mass ratio] 10.5 mg/mg 10-20 [facility] Basophil percentageOrdered B y: Adam Ferraro on 04-24-2025 Basophils/100 WBC (Bld) 1.1 % High 0-1 [facility] Bilirubin, totalOrdered By: Adam Ferraro on 04-24-2025 Bilirubin [Mass/Vol] 0.16 mg/dL 0.00-1.30 [facility] CBC W/Diff, Automatedon 04-14 Absolute Lymph 2.17 X10 3/uL Normal 0.83-4.51 [facility] Comment on above: Order Comment: 111.2 Performed By: #### L 501.2300, L500.4050, L501.9060, L100.0100 #### [facility] [address] [place], [address] Absolute Neut 6.4 X10 3/uL Normal 2.0-7.7 [facility] Comment on above: Order Comment: 111.2 Performed By: #### L 501.2300, L500.4050, L501.9060, L100.0100 #### [facility] [address] [place], [address] Basophils/100 WBC (Bld) 1.1 % High 0-1 [facility] Comment on above: Order Comment: 111.2 Performed By: #### L 501.2300, L500.4050, L501.9060, L100.0100 #### [facility] [address] [place], [address] Eosinophils/100 WBC (Bld) 5.1 % High 0-5 [facility] Comment on above: Order Comment: 111.2 Performed By: #### L 501.2300, L500.4050, L501.9060, L100.0100 #### [facility] [address] [place], [address] Erythrocyte distribution width (RBC) [Ratio] 13.1 % Normal 11.6-14.6 [facility] Comment on above: Order Comment: 111.2 Performed By: #### L 501.2300, L500.4050, L501.9060, L100.0100 #### [facility] [address] [place] [place], [address] Hematocrit (Bld) [Volume fraction] 38.2 % Low 40-54 [facility] Comment on above: Order Comment: 111.2 Performed By: #### L 501.2300, L500.4050, L501.9060, L100.0100 #### [facility] [address] [place], [address] Hemoglobin (Bld) [Mass/Vol] 12.7 g/dL Low 13.0-16.5 [facility] Comment on above: Order Comment: 111.2 Performed By: #### L 501.2300, L500.4050, L501.9060, L100.0100 #### [facility] [address] [place], [address] IG% 0.700 Normal 0.0-0.9 [facility] Comment on above: Order Comment: 111.2 Result Comment: IG% - Immature Granulocytes (promyelocytes, myelocytes and metamyelocytes) > 1% indicates that a LEFT SHIFT is Present. Performed By: #### L 501.2300, L500.4050, L501.9060, L100.0100 #### [facility] [address] [place], [address] Lymphocytes/100 WBC (Bld) 21.0 % Normal 19-41 [facility] Comment on above: Order Comment: 111.2 Performed By: #### L 501.2300, L500.4050, L501.9060, L100.0100 #### [facility] [address] [place], [address] MCH (RBC) [Entitic mass] 30.4 pg Normal 27.0-32.0 [facility] Comment on above: Order Comment: 111.2 Performed By: #### L 501.2300, L500.4050, L501.9060, L100.0100 #### [facility] [address] [place], [address] MCHC (RBC) [Mass/Vol] 33.2 g/dL Normal 32-36 [facility] Comment on above: Order Comment: 111.2 Performed By: #### L 501.2300, L500.4050, L501.9060, L100.0100 #### [facility] [address] [place], [address] MCV (RBC) [Entitic vol] 91.4 fL Normal 80-94 [facility] Comment on above: Order Comment: 111.2 Performed By: #### L 501.2300, L500.4050, L501.9060, L100.0100 #### [facility] [address] [place], [address] Monocytes/100 WBC (Bld) 9.9 % Normal 0-10 [facility] Comment on above: Order Comment: 111.2 Performed By: #### L 501.2300, L500.4050, L501.9060, L100.0100 #### [facility] [address] [place], [address] Neutrophils/100 WBC (Bld) 62.2 % Normal 47-70 [facility] Comment on above: Order Comment: 111.2 Performed By: #### L 501.2300, L500.4050, L501.9060, L100.0100 #### [facility] [address] [place], [address] Nucleated RBC (Bld) [#/Vol] 0 10*3/uL Normal 0-5 [facility] Comment on above: Order Comment: 111.2 Performed By: #### L 501.2300, L500.4050, L501.9060, L100.0100 #### [facility] [address] [place], [address] Platelet mean volume (Bld) [Entitic vol] 9.4 fL Normal 6.2-12.0 [facility] Comment on above: Order Comment: 111.2 Performed By: #### L 501.2300, L500.4050, L501.9060, L100.0100 #### [facility] [address] [place], [address] Platelets (Bld) [#/Vol] 245 10*3/uL Normal 150-450 [facility] Comment on above: Order Comment: 111.2 Performed By: #### L 501.2300, L500.4050, L501.9060, L100.0100 #### [facility] [address] [place], [address] RBC (Bld) [#/Vol] 4.18 10*6/uL Low 4.6-6.2 [facility] Comment on above: Order Comment: 111.2 Performed By: #### L 501.2300, L500.4050, L501.9060, L100.0100 #### [facility] [address] [place], [address] RDW SD 43.9 fl Normal 35.1-43.9 [facility] Comment on above: Order Comment: 111.2 Performed By: #### L 501.2300, L500.4050, L501.9060, L100.0100 #### [facility] [address] [place], [address] WBC (Bld) [#/Vol] 10.3 10*3/uL Normal 4.4-11.0 [facility] Comment on above: Order Comment: 111.2 Performed By: #### L 501.2300, L500.4050, L501.9060, L100.0100 #### [facility] [address] [place], [address] Carbon dioxide, total [Moles /volume] in Central venous bloodOrdered By: Adam Ferraro on 04-24-2025 CO2 [Moles/Vol] 21.9 mmol/L 21.0-32.0 [facility] Chloride assayOrdered By: Sabino Ferraro on 04-24-2025 Chloride [Moles/Vol] 107 mmol/L 98-108 [facility] Comprehensive Metabolic Prof ilon 04-24-2025 Albumin [Mass/Vol] 3.5 g/dL Normal 3.4-4.8 [facility] Comment on above: Order Comment: 111-2 Performed By: #### L 500.4050, L501.2300, L501.9060, L100.0100 #### [facility] [address] [place], [address] Albumin/Globulin [Mass ratio] 1.5 {ratio} Normal 0.9-2.4 [facility] Comment on above: Order Comment: 111-2 Performed By: #### L 500.4050, L501.2300, L501.9060, L100.0100 #### [facility] [address] [place], [address] ALK PHOS 76 U/L Normal 40-129 [facility] Comment on above: Order Comment: 111-2 Performed By: #### L 500.4050, L501.2300, L501.9060, L100.0100 #### [facility] [address] [place], [address] ALT [Catalytic activity/Vol] 11 U/L Normal <=46 [facility] Comment on above: Order Comment: 111-2 Performed By: #### L 500.4050, L501.2300, L501.9060, L100.0100 #### [facility] [address] [place], [address] AST [Catalytic activity/Vol] 16 U/L Normal <=37 [facility] Comment on above: Order Comment: 111-2 Performed By: #### L 500.4050, L501.2300, L501.9060, L100.0100 #### [facility] [address] [place], [address] Bilirubin [Mass/Vol] 0.16 mg/dL Normal 0.00-1.30 [facility] Comment on above: Order Comment: 111-2 Performed By: #### L 500.4050, L501.2300, L501.9060, L100.0100 #### [facility] [address] [place], [address] BUN/CRE 10.5 RATIO Normal 10-20 [facility] Comment on above: Order Comment: 111-2 Performed By: #### L 500.4050, L501.2300, L501.9060, L100.0100 #### [facility] [address] [place], [address] Calcium [Mass/Vol] 9.3 mg/dL Normal 7.6-11.0 [facility] Comment on above: Order Comment: 111-2 Performed By: #### L 500.4050, L501.2300, L501.9060, L100.0100 #### [facility] [address] [place], [address] Chloride [Moles/Vol] 107 mmol/L Normal 98-108 [facility] Comment on above: Order Comment: 111-2 Performed By: #### L 500.4050, L501.2300, L501.9060, L100.0100 #### [facility] [address] [place], [address] CO2 [Moles/Vol] 21.9 mmol/L Normal 21.0-32.0 [facility] Comment on above: Order Comment: 111-2 Performed By: #### L 500.4050, L501.2300, L501.9060, L100.0100 #### [facility] [address] [place], [address] Creatinine [Mass/Vol] 2.41 mg/dL High 0.70-1.20 [facility] Comment on above: Order Comment: 111-2 Performed By: #### L 500.4050, L501.2300, L501.9060, L100.0100 #### [facility] [address] [place], [address] GAP 12 Normal 5-15 [facility] Comment on above: Order Comment: 111-2 Performed By: #### L 500.4050, L501.2300, L501.9060, L100.0100 #### [facility] [address] [place], [address] GFR/1.73 sq M.predicted among non-blacks MDRD (S/P/Bld) [Vol rate/Area] 30 mL/min/{1.73_m2} Low >60 [facility] Comment on above: Order Comment: 111-2 Result Comment: mL/m in/1.73m2 CKD-EPI Creatinine Equation (2020) Performed By: #### L 500.4050, L501.2300, L501.9060, L100.0100 #### [facility] [address] [place], [address] Globulin (S) [Mass/Vol] 2.3 g/dL Normal 2.2-4.2 [facility] Comment on above: Order Comment: 111-2 Performed By: #### L 500.4050, L501.2300, L501.9060, L100.0100 #### [facility] [address] [place], [address] Glucose [Mass/Vol] 123 mg/dL High 70-99 [facility] Comment on above: Order Comment: 111-2 Performed By: #### L 500.4050, L501.2300, L501.9060, L100.0100 #### [facility] [address] [place], [address] Potassium [Moles/Vol] 4.6 mmol/L Normal 3.3-5.1 [facility] Comment on above: Order Comment: 111-2 Performed By: #### L 500.4050, L501.2300, L501.9060, L100.0100 #### [facility] [address] [place], [address] Sodium [Moles/Vol] 140 mmol/L Normal 133-145 [facility] Comment on above: Order Comment: 111-2 Performed By: #### L 500.4050, L501.2300, L501.9060, L100.0100 #### [facility] [address] [place], [address] T PROT 5.9 g/dL Normal 5.9-8.4 [facility] Comment on above: Order Comment: 111-2 Performed By: #### L 500.4050, L501.2300, L501.9060, L100.0100 #### [facility] [address] [place], [address] Urea nitrogen [Mass/Vol] 25 mg/dL High 4-19 [facility] Comment on above: Order Comment: 111-2 Performed By: #### L 500.4050, L501.2300, L501.9060, L100.0100 #### [facility] [address] [place], [address] Eosinophil percentageOrdered By: Adam Ferraro on 04-24-2025 Eosinophils/100 WBC (Bld) 5.1 % High 0-5 [facility] Erythrocyte distribution wid th ratioOrdered By: Adam Ferraro on 04-24-2025 Erythrocyte distribution width (RBC) [Ratio] 13.1 % 11.6-14.6 [facility] Erythrocyte distribution wid th standard deviationOrdered By: Adam Ferraro on 04-24-2025 Erythrocyte distribution width (RBC) [Ratio] 43.9 fl 35.1-43.9 [facility] Glomerular filtration rate ( GFR) estimation/1.73 sq m using serum, plasma, or whole bOrdered By: Adam Ferraro on 04-24-2025 GFR/1.73 sq M.predicted among non-blacks MDRD (S/P/Bld) [Vol rate/Area] 30 mL/min/{1.73_m2} Low >60 [facility] Comment on above: mL/min/1.73m2 CKD-EP I Creatinine Equation (2020) Hematocrit Auto (Bld) [Volum e fraction]Ordered By: Adam Ferraro on 04-24-2025 Hematocrit (Bld) [Volume fraction] 38.2 % Low 40-54 [facility] Hemoglobin measurementOrdere d By: Adam Ferraro on 04-24-2025 Hemoglobin (Bld) [Mass/Vol] 12.7 g/dL Low 13.0-16.5 [facility] Immature granulocytes/100 WB C Auto (Bld)Ordered By: Adam Ferraro on 04-24-2025 Immature granulocytes/100 WBC (Bld) 0.700 % 0.0-0.9 [facility] Comment on above: IG% - Immature Granu locytes (promyelocytes, myelocytes and metamyelocytes) > 1% indicates that a LEFT SHIFT is Present. Laboratory - Chemistry and C hemistry - challengeOrdered By: Adam Ferraro on 04-24-2025 AST [Catalytic activity/Vol] 16 U/L <38 [facility] Lithiumon 04-24-2025 LI 0.60 mmol/L Normal 0.60-1.20 [facility] Comment on above: Order Comment: 111-2 Performed By: #### L 500.4050, L501.2300, L501.9060, L100.0100 #### [facility] [address] [place], [address] MCV (mean corpuscular volume ) determinationOrdered By: Adam Ferraro on 04-24-2025 MCV (RBC) [Entitic vol] 91.4 fL 80-94 [facility] Mean corpuscular hemoglobin (MCH) determinationOrdered By: Adam Ferraro on 04-24-2025 MCH (RBC) [Entitic mass] 30.4 pg 27.0-32.0 [facility] Mean corpuscular hemoglobin concentration (MCHC) determinationOrdered By: Adam Ferraro on 04-24-2025 MCHC (RBC) [Mass/Vol] 33.2 g/dL 32-36 [facility] Mean platelet volume determi nationOrdered By: Adam Ferraro on 04-24-2025 Platelet mean volume (Bld) [Entitic vol] 9.4 fL 6.2-12.0 [facility] Monocyte percentageOrdered B y: Adam Ferraro on 04-24-2025 Monocytes/100 WBC (Bld) 9.9 % 0-10 [facility] Neutrophil percentageOrdered By: Adam Ferraro on 04-24-2025 Neutrophils/100 WBC (Bld) 62.2 % 47-70 [facility] Nucleated red blood cell per centageOrdered By: Adam Ferraro on 04-24-2025 Nucleated RBC/100 WBC (Bld) [Ratio] 0 % 0-5 [facility] Phosphoruson 04-24-2025 Phosphate [Mass/Vol] 4.8 mg/dL High 2.7-4.5 [facility] Comment on above: Order Comment: 111-2 Performed By: #### L 500.4050, L501.2300, L501.9060, L100.0100 #### [facility] [address] [facility] [place], [address] Platelet countOrdered By: Sabino Ferraro on 04-24-2025 Platelets (Bld) [#/Vol] 245 10*3/uL 150-450 [facility] Potassium measurement (mass/ volume)Ordered By: Adam Ferraro on 04-24-2025 Potassium (Unsp spec) [Mass/Vol] 4.6 mmol/L 3.3-5.1 [facility] RBC Auto (Bld) [#/Vol]Ordere d By: Adam Ferraro on 04-24-2025 RBC (Bld) [#/Vol] 4.18 10*6/uL Low 4.6-6.2 [facility] Serum creatinine measurement (mass/volume)Ordered By: Adam Ferraro on 04-24-2025 Creatinine [Mass/Vol] 2.41 mg/dL High 0.70-1.20 [facility] Serum globulin measurementOr dered By: Adam Ferraro on 04-24-2025 Globulin (S) [Mass/Vol] 2.3 g/dL 2.2-4.2 [facility] Serum glucose measurement (m ass/volume)Ordered By: Adam Ferraro on 04-24-2025 Glucose [Mass/Vol] 123 mg/dL High 70-99 [facility] Serum or plasma alanine sesay otransferase (ALT) measurementOrdered By: Adam Ferraro on 04-24-2025 ALT [Catalytic activity/Vol] 11 U/L <47 [facility] Serum or plasma albumin you urement (mass/volume)Ordered By: Adam Ferraro on 04-24-2025 Albumin [Mass/Vol] 3.5 g/dL 3.4-4.8 [facility] Serum or plasma albumin/glob ulin mass ratioOrdered By: Adam Ferraro on 04-24-2025 Albumin/Globulin [Mass ratio] 1.5 {ratio} 0.9-2.4 [facility] Serum or plasma alkaline hal sphatase measurementOrdered By: Adam Ferraro on 04-24-2025 ALP [Catalytic activity/Vol] 76 U/L 40-129 [facility] Serum or plasma calcium you urement (mass/volume)Ordered By: Adam Ferraro on 04-24-2025 Calcium [Mass/Vol] 9.3 mg/dL 7.6-11.0 [facility] Serum or plasma urea nitroge n measurement (mass/volume)Ordered By: Adam Ferraro on 04-24-2025 Urea nitrogen [Mass/Vol] 25 mg/dL High 4-19 [facility] Sodium levelOrdered By: Spike Ferraro on 04-24-2025 Sodium [Moles/Vol] 140 mmol/L 133-145 [facility] Total proteinOrdered By: Benoit Ferraro on 04-24-2025 Protein [Mass/Vol] 5.9 g/dL 5.9-8.4 [facility] White blood cell (WBC) count Ordered By: Adam Ferraro on 04-24-2025 WBC (Bld) [#/Vol] 10.3 10*3/uL 4.4-11.0 [facility] Lithiumon 04-01-2025 LI 0.64 mmol/L Normal 0.60-1.20 [facility] Comment on above: Order Comment: 111-2 Performed By: #### L 500.4050, L501.2300, L501.9060, L100.0100 #### [facility] [address] [place], [address] Serum or plasma uric acid me asurement (mass/volume)Ordered By: Alfredo Phipps on 03-27-2025 Urate [Mass/Vol] 6.5 mg/dL 3.5-7.2 [facility] Comment on above: The drugs N-Acetylcy steine and Metamizole may falsely depress this assay. Uric Acidon 03-27-2025 URIC 6.5 mg/dL Normal 3.5-7.2 [facility] Comment on above: Order Comment: 111-2 [id number] Result Comment: The drugs N-Acetylcysteine and Metamizole may falsely depress this assay. Performed By: #### L 500.4050, L501.2300, L501.9060, L100.0100 #### [facility] [address] [place], [address] Microalb:Creat Ratio,Random URon 03-05-2025 Creatinine [Mass/Vol] 72.80 mg/dL Normal 39.00- 259.0 0 [facility] Comment on above: Performed By: #### L 500.4050, L501.2300, L501.9060, L100.0100 #### [facility] [address] [place], [address] MALB:CREAT UNABLE TO CALCULATE Normal [facility] Comment on above: Performed By: #### L 500.4050, L501.2300, L501.9060, L100.0100 #### [facility] [address] [place], [address] MICROALBUMIN,UR < 12.0 Normal NO RANGE EST. [facility] Comment on above: Performed By: #### L 500.4050, L501.2300, L501.9060, L100.0100 #### [facility] [address] [place], [address] Microalbumin/creat ratio urO rdered By: Adam Ferraro on 03-04-2025 Urine microalbumin/creatinine ratio measurement UNABLE TO CALCULATE mg/g CRE [facility] Random urine creatinine you urement (mass/volume)Ordered By: Adam Ferraro on 03-04-2025 Creatinine Unsp time (U) [Mass/Vol] 72.80 mg/dL 39.00-259.0 0 [facility] Urine albumin measurement wi th detection limit of 20 mg/L or less (mass/volume)Ordered By: Adam Ferraro on 03-04-2025 Albumin DL <= 20 mg/L (U) [Mass/Vol] < 12.0 mg/L NO RANGE EST. [facility] Absolute lymphocyte countOrd ered By: Alfredo Phipps on 02-27-2025 Lymphocytes Auto (Unsp spec) [#/Vol] 1.42 10*3/uL 0.83-4.51 [facility] Absolute neutrophil countOrd ered By: Alfredo Phipps on 02-27-2025 Neutrophils (Bld) [#/Vol] 17.7 10*3/uL High 2.0-7.7 [facility] Anion gap in Serum or Plasma Ordered By: Alfredo Phipps on 02-27-2025 Anion gap [Moles/Vol] 12 mmol/L 5-15 [facility] Automated lymphocyte count a s percentage of total leukocytesOrdered By: Alfredo Phipps on 02-27-2025 Lymphocytes/100 WBC Auto (Unsp spec) 6.9 % Low 19-41 [facility] BUN/creatinine ratioOrdered By: Alfredo Phipps on 02-27-2025 Urea nitrogen/Creatinine [Mass ratio] 12.7 mg/mg 10-20 [facility] Basophil percentageOrdered B y: Alfredo Phipps on 02-27-2025 Basophils/100 WBC (Bld) 0.2 % 0-1 [facility] Bilirubin directOrdered By: Alfredo Phipps on 02-27-2025 Bilirubin.direct [Mass/Vol] 0.10 mg/dL 0.00-0.30 [facility] Bilirubin, Directon 02-28-20 25 Bilirubin.direct [Mass/Vol] 0.10 mg/dL Normal 0.00-0.30 [facility] Comment on above: Order Comment: 111. UNKNOWN [id number] Performed By: #### L 501.9060 #### [facility] [address] [place], [address] Bilirubin, totalOrdered By: Alfredo Phipps on 02-27-2025 Bilirubin [Mass/Vol] 0.19 mg/dL 0.00-1.30 [facility] CBC W/Diff, Automatedon 02-12 Absolute Lymph 1.42 X10 3/uL Normal 0.83-4.51 [facility] Comment on above: Order Comment: [id number] Performed By: #### L 500.4050, L501.2300, L501.9060, L100.0100 #### [facility] [address] [place], [address] Absolute Neut 17.7 X10 3/uL High 2.0-7.7 [facility] Comment on above: Order Comment: [id number] Performed By: #### L 500.4050, L501.2300, L501.9060, L100.0100 #### [facility] [address] [place], [address] Basophils/100 WBC (Bld) 0.2 % Normal 0-1 [facility] Comment on above: Order Comment: [id number] Performed By: #### L 500.4050, L501.2300, L501.9060, L100.0100 #### [facility] [address] [place], [address] Eosinophils/100 WBC (Bld) 0.0 % Normal 0-5 [facility] Comment on above: Order Comment: [id number] Performed By: #### L 500.4050, L501.2300, L501.9060, L100.0100 #### [facility] [address] [place], [address] Erythrocyte distribution width (RBC) [Ratio] 13.3 % Normal 11.6-14.6 [facility] Comment on above: Order Comment: [id number] Performed By: #### L 500.4050, L501.2300, L501.9060, L100.0100 #### [facility] [address] [place], [address] Hematocrit (Bld) [Volume fraction] 39.0 % Low 40-54 [facility] Comment on above: Order Comment: [id number] Performed By: #### L 500.4050, L501.2300, L501.9060, L100.0100 #### [facility] [address] [place], [address] Hemoglobin (Bld) [Mass/Vol] 13.1 g/dL Normal 13.0-16.5 [facility] Comment on above: Order Comment: [id number] Performed By: #### L 500.4050, L501.2300, L501.9060, L100.0100 #### [facility] [address] [place], [address] IG% 0.900 Normal 0.0-0.9 [facility] Comment on above: Order Comment: [id number] Result Comment: IG% - Immature Granulocytes (promyelocytes, myelocytes and metamyelocytes) > 1% indicates that a LEFT SHIFT is Present. Performed By: #### L 500.4050, L501.2300, L501.9060, L100.0100 #### [facility] [address] [place], [address] Lymphocytes/100 WBC (Bld) 6.9 % Low 19-41 [facility] Comment on above: Order Comment: [id number] Performed By: #### L 500.4050, L501.2300, L501.9060, L100.0100 #### [facility] [address] [place], [address] MCH (RBC) [Entitic mass] 30.1 pg Normal 27.0-32.0 [facility] Comment on above: Order Comment: [id number] Performed By: #### L 500.4050, L501.2300, L501.9060, L100.0100 #### [facility] [address] [place], [address] MCHC (RBC) [Mass/Vol] 33.6 g/dL Normal 32-36 [facility] Comment on above: Order Comment: [id number] Performed By: #### L 500.4050, L501.2300, L501.9060, L100.0100 #### [facility] [address] [place], [address] MCV (RBC) [Entitic vol] 89.7 fL Normal 80-94 [facility] Comment on above: Order Comment: [id number] Performed By: #### L 500.4050, L501.2300, L501.9060, L100.0100 #### [facility] [address] [place], [address] Monocytes/100 WBC (Bld) 6.4 % Normal 0-10 [facility] Comment on above: Order Comment: 20250814 Performed By: #### L 500.4050, L501.2300, L501.9060, L100.0100 #### [facility] [address] [place], [address] Neutrophils/100 WBC (Bld) 85.6 % High 47-70 [facility] Comment on above: Order Comment: [id number] Performed By: #### L 500.4050, L501.2300, L501.9060, L100.0100 #### [facility] [address] [place], [address] Nucleated RBC (Bld) [#/Vol] 0 10*3/uL Normal 0-5 [facility] Comment on above: Order Comment: [id number] Performed By: #### L 500.4050, L501.2300, L501.9060, L100.0100 #### [facility] [address] [place], [address] Platelet mean volume (Bld) [Entitic vol] 9.3 fL Normal 6.2-12.0 [facility] Comment on above: Order Comment: [id number] Performed By: #### L 500.4050, L501.2300, L501.9060, L100.0100 #### [facility] [address] [place], [address] Platelets (Bld) [#/Vol] 274 10*3/uL Normal 150-450 [facility] Comment on above: Order Comment: [id number] Performed By: #### L 500.4050, L501.2300, L501.9060, L100.0100 #### [facility] [address] [place], [address] RBC (Bld) [#/Vol] 4.35 10*6/uL Low 4.6-6.2 [facility] Comment on above: Order Comment: [id number] Performed By: #### L 500.4050, L501.2300, L501.9060, L100.0100 #### [facility] [address] [place], [address] RDW SD 43.8 fl Normal 35.1-43.9 [facility] Comment on above: Order Comment: [id number] Performed By: #### L 500.4050, L501.2300, L501.9060, L100.0100 #### [facility] [address] [place], [address] WBC (Bld) [#/Vol] 20.6 10*3/uL High 4.4-11.0 [facility] Comment on above: Order Comment: [id number] Performed By: #### L 500.4050, L501.2300, L501.9060, L100.0100 #### [facility] [address] [place], [address] Carbon dioxide, total [Moles /volume] in Central venous bloodOrdered By: Alfredo Phipps on 02-27-2025 CO2 [Moles/Vol] 20.5 mmol/L Low 21.0-32.0 [facility] Chloride assayOrdered By: Chan Fiore on 02-27-2025 Chloride [Moles/Vol] 105 mmol/L 98-108 [facility] Comprehensive Metabolic Prof ilon 02-27-2025 Albumin [Mass/Vol] 3.9 g/dL Normal 3.4-4.8 [facility] Comment on above: Order Comment: 111.2 UNKNOWN [id number] 0000 Performed By: #### L 501.9060 #### [facility] [address] [place], [address] Albumin/Globulin [Mass ratio] 1.6 {ratio} Normal 0.9-2.4 [facility] Comment on above: Order Comment: 111.2 UNKNOWN [id number] 0000 Performed By: #### L 501.9060 #### [facility] [address] [place], [address] ALK PHOS 66 U/L Normal 40-129 [facility] Comment on above: Order Comment: 111.2 UNKNOWN [id number] 0000 Performed By: #### L [id number] #### [facility] [facility] [address] [place], [address] ALT [Catalytic activity/Vol] 13 U/L Normal <=46 [facility] Comment on above: Order Comment: 111.2 UNKNOWN [id number] 0000 Performed By: #### L [id number] #### [facility] [address] [place], [address] AST [Catalytic activity/Vol] 11 U/L Normal <=37 [facility] Comment on above: Order Comment: 111.2 UNKNOWN [id number] 0000 Performed By: #### L [id number] #### [facility] [address] [place], [address] Bilirubin [Mass/Vol] 0.19 mg/dL Normal 0.00-1.30 [facility] Comment on above: Order Comment: 111.2 UNKNOWN [id number] 0000 Performed By: #### L [id number] #### [facility] [address] [place], [address] BUN/CRE 12.7 RATIO Normal 10-20 [facility] Comment on above: Order Comment: 111.2 UNKNOWN [id number] 0000 Performed By: #### L [id number] #### [facility] [address] [place], [address] Calcium [Mass/Vol] 9.8 mg/dL Normal 7.6-11.0 [facility] Comment on above: Order Comment: 111.2 UNKNOWN [id number] 0000 Performed By: #### L [id number] #### [facility] [address] [place], [address] Chloride [Moles/Vol] 105 mmol/L Normal 98-108 [facility] Comment on above: Order Comment: 111.2 UNKNOWN [id number] 0000 Performed By: #### L [id number] #### [facility] [address] [place], [address] CO2 [Moles/Vol] 20.5 mmol/L Low 21.0-32.0 [facility] Comment on above: Order Comment: 111.2 UNKNOWN [id number] 0000 Performed By: #### L [id number] #### [facility] [address] [place], [address] Creatinine [Mass/Vol] 2.32 mg/dL High 0.70-1.20 [facility] Comment on above: Order Comment: 111.2 UNKNOWN [id number] Performed By: #### L [id number] #### [facility] [address] [place], [address] GAP 12 Normal 5-15 [facility] Comment on above: Order Comment: 111.2 UNKNOWN 20250701 Performed By: #### L [id number] #### [facility] [address] [place], [address] GFR/1.73 sq M.predicted among non-blacks MDRD (S/P/Bld) [Vol rate/Area] 31 mL/min/{1.73_m2} Low >60 [facility] Comment on above: Order Comment: 111.2 UNKNOWN 20250701 Result Comment: mL/m in/1.73m2 CKD-EPI Creatinine Equation (2020) Performed By: #### L [id number] #### [facility] [address] [place], [address] Globulin (S) [Mass/Vol] 2.4 g/dL Normal 2.2-4.2 [facility] Comment on above: Order Comment: 111.2 UNKNOWN [id number] Performed By: #### L [id number] #### [facility] [address] [place], [address] Glucose [Mass/Vol] 134 mg/dL High 70-99 [facility] Comment on above: Order Comment: 111.2 UNKNOWN 20250701 0000 Performed By: #### L [id number] #### [facility] [address] [place], [address] Potassium [Moles/Vol] 4.4 mmol/L Normal 3.3-5.1 [facility] Comment on above: Order Comment: 111.2 UNKNOWN 20250701 0000 Performed By: #### L [id number] #### [facility] [address] [place], [address] Sodium [Moles/Vol] 138 mmol/L Normal 133-145 [facility] Comment on above: Order Comment: 111.2 UNKNOWN [id number] 0000 Performed By: #### L [id number] #### [facility] [address] [place], [address] T PROT 6.2 g/dL Normal 5.9-8.4 [facility] Comment on above: Order Comment: 111.2 UNKNOWN [id number] 0000 Performed By: #### L [id number] #### [facility] [address] [place], [address] Urea nitrogen [Mass/Vol] 29 mg/dL High 4-19 [facility] Comment on above: Order Comment: 111.2 UNKNOWN [id number] 0000 Performed By: #### L [id number] #### [facility] [address] [place], [address] Eosinophil percentageOrdered By: Alfredo Phipps on 02-27-2025 Eosinophils/100 WBC (Bld) 0.0 % 0-5 [facility] Erythrocyte distribution wid th (RBC) [Ratio]Ordered By: Alfredo Phipps on 02-27-2025 Erythrocyte distribution width (RBC) [Entitic vol] 43.8 fL 35.1-43.9 [facility] Erythrocyte distribution wid th ratioOrdered By: Alfredo Phipps on 02-27-2025 Erythrocyte distribution width (RBC) [Ratio] 13.3 % 11.6-14.6 [facility] Erythrocyte distribution wid th standard deviationOrdered By: Alfredo Phipps on 02-27-2025 Erythrocyte distribution width (RBC) [Ratio] 43.8 fl 35.1-43.9 [facility] GFR/1.73 sq M.predicted miles g non-blacks MDRD (S/P/Bld) [Vol rate/Area]Ordered By: Alfredo Phipps on 02-27-2025 Estimated GFR (MDRD) Non-Af Amer 31 Low >60 [facility] Comment on above: mL/min/1.73m2 CKD-EP I Creatinine Equation (2020) Glomerular filtration rate ( GFR) estimation/1.73 sq m using serum, plasma, or whole bOrdered By: Alfredo Phipps on 02-27-2025 GFR/1.73 sq M.predicted among non-blacks MDRD (S/P/Bld) [Vol rate/Area] 31 mL/min/{1.73_m2} Low >60 [facility] Comment on above: mL/min/1.73m2 CKD-EP I Creatinine Equation (2020) Hematocrit Auto (Bld) [Volum e fraction]Ordered By: Alfredo Phipps on 02-27-2025 Hematocrit (Bld) [Volume fraction] 39.0 % Low 40-54 [facility] Hemoglobin measurementOrdere d By: Alfredo Phipps on 02-27-2025 Hemoglobin (Bld) [Mass/Vol] 13.1 g/dL 13.0-16.5 [facility] Immature granulocytes/100 WB C Auto (Bld)Ordered By: Alfredo Phipps on 02-27-2025 Immature granulocytes/100 WBC (Bld) 0.900 % 0.0-0.9 [facility] Comment on above: IG% - Immature Granu locytes (promyelocytes, myelocytes and metamyelocytes) > 1% indicates that a LEFT SHIFT is Present. Laboratory - Chemistry and C hemistry - challengeOrdered By: Alfredo Phipps on 02-27-2025 AST [Catalytic activity/Vol] 11 U/L <38 [facility] Lithiumon 02-27-2025 LI 0.60 mmol/L Normal 0.60-1.20 [facility] Comment on above: Order Comment: 111.2 UNKNOWN [id number] 0000 Performed By: #### L [id number] #### [facility] [place], [address] [place] levelOrdered By: Jennifer Phipps on 02-27-2025 [place] Level 0.60 mmol/L 0.60-1.20 [facility] Lymphocytes Auto (Unsp spec) [#/Vol]Ordered By: Alfredo Phipps on 02-27-2025 Lymphocytes (Bld) [#/Vol] 1.42 10*3/uL 0.83-4.5 1 [facility] Lymphocytes/100 WBC Auto (Un sp spec)Ordered By: Alfredo Phipps on 02-27-2025 Lymphocytes/100 WBC (Bld) 6.9 % Low 19-41 [facility] MCV (mean corpuscular volume ) determinationOrdered By: Alfredo Phipps on 02-27-2025 MCV (RBC) [Entitic vol] 89.7 fL 80-94 [facility] Mean corpuscular hemoglobin (MCH) determinationOrdered By: Alfredo Phipps on 02-27-2025 MCH (RBC) [Entitic mass] 30.1 pg 27.0-32.0 [facility] Mean corpuscular hemoglobin concentration (MCHC) determinationOrdered By: Alfredo Phipps on 02-27-2025 MCHC (RBC) [Mass/Vol] 33.6 g/dL 32-36 [facility] Mean platelet volume determi nationOrdered By: Alfredo Phipps on 02-27-2025 Platelet mean volume (Bld) [Entitic vol] 9.3 fL 6.2-12.0 [facility] Monocyte percentageOrdered B y: Alfredo Phipps on 02-27-2025 Monocytes/100 WBC (Bld) 6.4 % 0-10 [facility] Neutrophil percentageOrdered By: Alfredo Phipps on 02-27-2025 Neutrophils/100 WBC (Bld) 85.6 % High 47-70 [facility] Nucleated red blood cell per centageOrdered By: Alfredo Phipps on 02-27-2025 Nucleated RBC/100 WBC (Bld) [Ratio] 0 % 0-5 [facility] Platelet countOrdered By: Chan Fiore on 02-27-2025 Platelets (Bld) [#/Vol] 274 10*3/uL 150-450 [facility] Potassium (Unsp spec) [Mass/ Vol]Ordered By: Alfredo Phipps on 02-27-2025 Potassium [Moles/Vol] 4.4 mmol/L 3.3-5.1 [facility] Potassium measurement (mass/ volume)Ordered By: Alfredo Phipps on 02-27-2025 Potassium (Unsp spec) [Mass/Vol] 4.4 mmol/L 3.3-5.1 [facility] RBC Auto (Bld) [#/Vol]Ordere d By: Alfredo Phipps on 02-27-2025 RBC (Bld) [#/Vol] 4.35 10*6/uL Low 4.6-6.2 [facility] Serum creatinine measurement (mass/volume)Ordered By: Alfredo Phipps on 02-27-2025 Creatinine [Mass/Vol] 2.32 mg/dL High 0.70-1.20 [facility] Serum globulin measurementOr dered By: Alfredo Phipps on 02-27-2025 Globulin (S) [Mass/Vol] 2.4 g/dL 2.2-4.2 [facility] Serum glucose measurement (m ass/volume)Ordered By: Alfredo Phipps on 02-27-2025 Glucose [Mass/Vol] 134 mg/dL High 70-99 [facility] Serum or plasma alanine sesay otransferase (ALT) measurementOrdered By: Alfredo Phipps on 02-27-2025 ALT [Catalytic activity/Vol] 13 U/L <47 [facility] Serum or plasma albumin you urement (mass/volume)Ordered By: Alfredo Phipps on 02-27-2025 Albumin [Mass/Vol] 3.9 g/dL 3.4-4.8 [facility] Serum or plasma albumin/glob ulin mass ratioOrdered By: Alfredo Phipps on 02-27-2025 Albumin/Globulin [Mass ratio] 1.6 {ratio} 0.9-2.4 [facility] Serum or plasma alkaline hal sphatase measurementOrdered By: Alfredo Phipps on 02-27-2025 ALP [Catalytic activity/Vol] 66 U/L 40-129 [facility] Serum or plasma calcium you urement (mass/volume)Ordered By: Alfredo Phipps on 02-27-2025 Calcium [Mass/Vol] 9.8 mg/dL 7.6-11.0 [facility] Serum or plasma urea nitroge n measurement (mass/volume)Ordered By: Alfredo Phipps on 02-27-2025 Urea nitrogen [Mass/Vol] 29 mg/dL High 4-19 [facility] Sodium levelOrdered By: Raffi Phipps on 02-27-2025 Sodium [Moles/Vol] 138 mmol/L 133-145 [facility] Total proteinOrdered By: Jennifer Phipps on 02-27-2025 Protein [Mass/Vol] 6.2 g/dL 5.9-8.4 [facility] White blood cell (WBC) count Ordered By: Alfredo Phipps on 02-27-2025 WBC (Bld) [#/Vol] 20.6 10*3/uL High 4.4-11.0 [facility] Serum or plasma uric acid me asurement (mass/volume)Ordered By: Adam Ferraro on 02-25-2025 Urate [Mass/Vol] 6.3 mg/dL 3.5-7.2 [facility] Comment on above: The drugs N-Acetylcy steine and Metamizole may falsely depress this assay. Uric Acidon 02-25-2025 URIC 6.3 mg/dL Normal 3.5-7.2 [facility] Comment on above: Order Comment: 111-2 Result Comment: The drugs N-Acetylcysteine and Metamizole may falsely depress this assay. Performed By: #### L [id number], L501.2300, L501.9060, L100.0100 #### [facility] [address] [place], [place], [id number] Calculated very low density lipoprotein (VLDL) cholesterol measurementOrdered By: Alfredo Phipps on 02-11-2025 Calculated very low density lipoprotein (VLDL) cholesterol measurement 43 mg/dL High 5-40 [facility] VLDL Cholesterol 43 mg/dL High 5-40 [facility] LDL calc ser/plasOrdered By: Alfredo Phipps on 02-11-2025 Cholesterol in LDL [Mass/Vol] 67 mg/dL [facility] Comment on above: Oumnecfvgp=726-934 m g/dL & Higher Gtaw=113 mg/dL or greater LDL Cholesterol, Calculated 67 mg/dL [facility] Comment on above: Obqpccyjhp=243-808 m g/dL & Higher Yifj=862 mg/dL or greater Lipid Profileon 02-11-2025 CHOL:HDL 4.53 Normal [facility] Comment on above: Order Comment: 111.2 UNKNOWN 20250701 Performed By: #### L [id number] #### [facility] [address] [place], [place], [id number] (275) Cholesterol [Mass/Vol] 141 mg/dL Normal <=200 [facility] Comment on above: Order Comment: 111.2 UNKNOWN 20250701 Result Comment: Chol esterol level, Desirable <200 mg/dL Borderline high cholesterol 200-239 mg/dL High cholesterol >=240 mg/dL Recommendations of the NCEP Adult Treatment Panel for the following risk-cutoff thresholds for the [place] population. Performed By: #### L [id number] #### [facility] [address] [place], [place], [id number] (962) Cholesterol in HDL [Mass/Vol] 31 mg/dL Low [facility] Comment on above: Order Comment: 111.2 UNKNOWN 20250701 Result Comment: Fabienne onal Cholesterol Education Program (NCEP) guidelines: <40 mg/dL: Low HDL-cholesterol (major risk factor for CHD) >= 60 mg/dL: High HDL-cholesterol (negative risk factor for CHD) HDL-cholesterol is affected by a number of factors, e.g. smoking, exercise, hormones, sex and age. Performed By: #### L [id number] #### [facility] [address] [place], [place], [id number] (950) Cholesterol in LDL [Mass/Vol] 67 mg/dL Normal [facility] Comment on above: Order Comment: 111.2 UNKNOWN 20250701 Result Comment: Bord fqxvxi=982-470 mg/dL Higher Aima=948 mg/dL or greater Performed By: #### L [id number] #### [facility] [address] [place], [place], [id number] Cholesterol in VLDL [Mass/Vol] 43 mg/dL High 5-40 [facility] Comment on above: Order Comment: 111.2 UNKNOWN [id number] 0000 Performed By: #### L [id number] #### [facility] [address] [place], [place], [id number] Triglyceride [Mass/Vol] 215 mg/dL High [facility] Comment on above: Order Comment: 111.2 UNKNOWN [id number] 0000 Result Comment: The drugs N-Acetylcysteine and Metamizole may falsely depress this assay. Normal range: <150 mg/dL Borderline High: 150-199 mg/dL High: 200-499 mg/dL Very High: >500 mg/dL Performed By: #### L [id number] #### [facility] [address] [place], [place], [id number] Screening total cholesterol/ high density lipoprotein (HDL) cholesterol ratioOrdered By: Alfredo Phipps on 02-11-2025 Cholesterol.total/Choleste rol in HDL [Mass ratio] 4.53 {ratio} [facility] Serum or plasma cholesterol in HDL measurement (mass/volume)Ordered By: Alfredo Phipps on 02-11-2025 Cholesterol in HDL [Mass/Vol] 31 mg/dL Low >40 [facility] Comment on above: National Cholesterol Education Program (NCEP) guidelines:<40 mg/dL: Low HDL-cholesterol (major risk factor for CHD)>= 60 mg/dL: High HDL-cholesterol (negative risk factor for CHD)HDL-cholesterol is affected by a number of factors, e.g. smoking, exercise, hormones, sex and age. Serum or plasma cholesterol measurement (mass/volume)Ordered By: Alfredo Phipps on 02-11-2025 Cholesterol [Mass/Vol] 141 mg/dL <201 [facility] Comment on above: Cholesterol level, D esirable <200 mg/dLBorderline high cholesterol 200-239 mg/dLHigh cholesterol >=240 mg/dLRecommendations of the NCEP Adult Treatment Panel for the following risk-cutoff thresholds for the [place] population. Triglycerides measurementOrd ered By: Alfredo Phipps on 02-11-2025 Triglyceride [Mass/Vol] 215 mg/dL High <199 [facility] Comment on above: The drugs N-Acetylcy steine and Metamizole may falsely depress this assay. Normal range: <150 mg/dLBorderline High: 150-199 mg/dLHigh: 200-499 mg/dLVery High: >500 mg/dL Hemoglobin A1con 02-06-2025 HbA1c (Bld) [Mass fraction] 5.8 % Normal <=5.6 [facility] Comment on above: Order Comment: 111.2 UNKNOWN [id number] 0000 Performed By: #### L [id number] #### [facility] [address] [place], [place], [address] Hemoglobin A1c percentageOrd ered By: Alfredo Phipps on 02-06-2025 HbA1c (Bld) [Mass fraction] 5.8 % >5.7 [facility] Lithiumon 01-30-2025 LI 0.71 mmol/L Normal 0.60-1.20 [facility] Comment on above: Order Comment: 111-2 Performed By: #### L [id number], L501.2300, L501.9060, L100.0100 #### [facility] [address] [place], [place], [address] [place] levelOrdered By: Benoit Ferraro on 01-30-2025 [place] Level 0.71 mmol/L 0.60-1.20 [facility] Serum or plasma uric acid me asurement (mass/volume)Ordered By: Adam Ferraro on 01-25-2025 Urate [Mass/Vol] 6.2 mg/dL 3.5-7.2 [facility] Comment on above: The drugs N-Acetylcy steine and Metamizole may falsely depress this assay. Uric Acidon 01-25-2025 URIC 6.2 mg/dL Normal 3.5-7.2 [facility] Comment on above: Order Comment: 111-2 Result Comment: The drugs N-Acetylcysteine and Metamizole may falsely depress this assay. Performed By: #### L [id number], L501.2300, L501.9060, L100.0100 #### [facility] [address] [place], [address] Microalb:Creat Ratio,Random URon 01-03-2025 Creatinine [Mass/Vol] 104.00 mg/dL Normal NO RAN GE EST. [facility] Comment on above: Performed By: #### L [id number] #### [facility] [address] [place], [address] MALB:CRE TNP Normal <30 mg/g CRE [facility] Comment on above: Performed By: #### L [id number] #### [facility] [address] [place], [address] MICROALBUMIN,UR < 5.0 Normal NO RANGE EST. [facility] Comment on above: Performed By: #### L [id number] #### [facility] [address] [place], [address] Random urine microalbumin me asurementOrdered By: Adam Ferraro on 01-03-2025 Urine Random Microalbumin < 5.0 mg/L NO RANGE EST. [facility] Urine albumin/creatinine rat io for detection of microalbuminuriaOrdered By: Adam Ferraro on 01-03-2025 Urine Microalbumin/Creatinine Ratio TNP [facility] Comment on above: Test not performed Urine creatinine measurement (mass/volume)Ordered By: Adam Ferraro on 01-03-2025 Creatinine (U) [Mass/Vol] 104.00 mg/dL NO RANGE EST. [facility] Absolute lymphocyte countOrd ered By: Adam Ferraro on 01-02-2025 Lymphocytes Auto (Unsp spec) [#/Vol] 2.41 10*3/uL 0.83-4.51 [facility] Absolute neutrophil countOrd ered By: Adam eFrraro on 01-02-2025 Neutrophils (Bld) [#/Vol] 5.6 10*3/uL 2.0-7.7 [facility] Albumin to globulin ratioOrd ered By: Adam Muñozmele on 01-02-2025 Albumin/Globulin [Mass ratio] 1.0 {ratio} 0.9-2.4 [facility] Automated lymphocyte count a s percentage of total leukocytesOrdered By: Adam Ferraro on 01-02-2025 Lymphocytes/100 WBC Auto (Unsp spec) 25.1 % [facility] Basophil percentageOrdered B y: Adam Ferraro on 01-02-2025 Basophils/100 WBC (Bld) 1.1 % High 0-1 [facility] Bilirubin, totalOrdered By: Adam Ferraro on 01-02-2025 Bilirubin [Mass/Vol] 0.30 mg/dL 0.20-1.00 [facility] Comment on above: For patients on eltr ombopag therapy, use of Dimension [place] TBIL is not recommended. Blood urea nitrogen (BUN)/cr eatinine ratioOrdered By: Adam Ferraro on 01-02-2025 Urea nitrogen/Creatinine [Mass ratio] 12.6 mg/mg 10- [facility] CBC W/Diff, Automatedon 12-15 Absolute Lymph 2.41 X10 3/uL Normal 0.83-4.51 [facility] Comment on above: Order Comment: 111.2 UNKNOWN [id number] 0000 Performed By: #### L [id number] #### [facility] [address] [place], [address] Absolute Neut 5.6 X10 3/uL Normal 2.0-7.7 [facility] Comment on above: Order Comment: 111.2 UNKNOWN [id number] 0000 Performed By: #### L [id number] #### [facility] [address] [place], [address] Basophils/100 WBC (Bld) 1.1 % High 0-1 [facility] Comment on above: Order Comment: 111.2 UNKNOWN [id number] 0000 Performed By: #### L 252.9035 #### [facility] [address] [place], [address] Eosinophils/100 WBC (Bld) 5.3 % High 0-5 [facility] Comment on above: Order Comment: 111.2 UNKNOWN [id number] 0000 Performed By: #### L [id number] #### [facility] [address] [place], [address] Erythrocyte distribution width (RBC) [Ratio] 12.9 % Normal 11.6-14.6 [facility] Comment on above: Order Comment: 111.2 UNKNOWN [id number] 0000 Performed By: #### L [id number] #### [facility] [address] [place], [address] Hematocrit (Bld) [Volume fraction] 40.5 % Normal 40-54 [facility] Comment on above: Order Comment: 111.2 UNKNOWN [id number] 0000 Performed By: #### L [id number] #### [facility] [address] [place], [address] Hemoglobin (Bld) [Mass/Vol] 13.4 g/dL Normal 13.0-16.5 [facility] Comment on above: Order Comment: 111.2 UNKNOWN 20250701 0000 Performed By: #### L [id number] #### [facility] [address] [place], [address] IG% 0.500 Normal 0.0-0.9 [facility] Comment on above: Order Comment: 111.2 UNKNOWN 20250701 0000 Result Comment: IG% - Immature Granulocytes (promyelocytes, myelocytes and metamyelocytes) > 1% indicates that a LEFT SHIFT is Present. Performed By: #### L [id number] #### [facility] [address] [place], [address] Lymphocytes/100 WBC (Bld) 25.1 % Normal 19-41 [facility] Comment on above: Order Comment: 111.2 UNKNOWN [id number] 0000 Performed By: #### L 501.9049 #### [facility] [address] [place], [address] MCH (RBC) [Entitic mass] 30.0 pg Normal 27.0-32.0 [facility] Comment on above: Order Comment: 111.2 UNKNOWN [id number] 0000 Performed By: #### L [id number] #### [facility] [address] [place], [address] MCHC (RBC) [Mass/Vol] 33.1 g/dL Normal 32-36 [facility] Comment on above: Order Comment: 111.2 UNKNOWN [id number] 0000 Performed By: #### L [id number] #### [facility] [address] [place], [address] MCV (RBC) [Entitic vol] 90.8 fL Normal 80-94 [facility] Comment on above: Order Comment: 111.2 UNKNOWN [id number] 0000 Performed By: #### L [id number] #### [facility] [address] [place], [address] Monocytes/100 WBC (Bld) 9.4 % Normal 0-10 [facility] Comment on above: Order Comment: 111.2 UNKNOWN 20250701 0000 Performed By: #### L [id number] #### [facility] [address] [place], [address] Neutrophils/100 WBC (Bld) 58.6 % Normal 47-70 [facility] Comment on above: Order Comment: 111.2 UNKNOWN [id number] 0000 Performed By: #### L [id number] #### [facility] [address] [place], [address] Nucleated RBC (Bld) [#/Vol] 0 10*3/uL Normal 0-5 [facility] Comment on above: Order Comment: 111.2 UNKNOWN [id number] 0000 Performed By: #### L [id number] #### [facility] [address] [place], [address] Platelet mean volume (Bld) [Entitic vol] 9.5 fL Normal 6.2-12.0 [facility] Comment on above: Order Comment: 111.2 UNKNOWN [id number] 0000 Performed By: #### L [id number] #### [facility] [address] [place], [address] Platelets (Bld) [#/Vol] 247 10*3/uL Normal 150-450 [facility] Comment on above: Order Comment: 111.2 UNKNOWN [id number] 0000 Performed By: #### L [id number] #### [facility] [address] [place], [address] RBC (Bld) [#/Vol] 4.46 10*6/uL Low 4.6-6.2 [facility] Comment on above: Order Comment: 111.2 UNKNOWN [id number] 0000 Performed By: #### L [id number] #### [facility] [address] [place], [address] RDW SD 41.9 fl Normal 35.1-43.9 [facility] Comment on above: Order Comment: 111.2 UNKNOWN [id number] 0000 Performed By: #### L [id number] #### [facility] [address] [place], [address] WBC (Bld) [#/Vol] 9.6 10*3/uL Normal 4.4-11.0 [facility] Comment on above: Order Comment: 111.2 UNKNOWN [id number] 0000 Performed By: #### L [id number] #### [facility] [address] [place], [address] Carbon dioxide measurementOr dered By: Adam Ferraro on 01-02-2025 CO2 [Moles/Vol] 25.0 mmol/L 21.0-32.0 [facility] Chloride measurementOrdered By: Adam Ferraro on 01-02-2025 Chloride [Moles/Vol] 109 mmol/L High 98-107 [facility] Comprehensive Metabolic Prof ilon 01-02-2025 Albumin [Mass/Vol] 3.1 g/dL Low 3.2-5.0 [facility] Comment on above: Order Comment: 111.2 UNKNOWN [id number] 0000 Performed By: #### L [id number] #### [facility] [address] [place], [address] Albumin/Globulin [Mass ratio] 1.0 {ratio} Normal 0.9-2.4 [facility] Comment on above: Order Comment: 111.2 UNKNOWN [id number] 0000 Performed By: #### L [id number] #### [facility] [address] [place], [address] ALK P 81 U/L Normal 45-117 [facility] Comment on above: Order Comment: 111.2 UNKNOWN [id number] 0000 Performed By: #### L [id number] #### [facility] [address] [place], [address] ALT [Catalytic activity/Vol] 17 U/L Normal 16-61 [facility] Comment on above: Order Comment: 111.2 UNKNOWN [id number] 0000 Performed By: #### L [id number] #### [facility] [facility] [address] [place], [address] AST [Catalytic activity/Vol] 12 U/L Low 15-37 [facility] Comment on above: Order Comment: 111.2 UNKNOWN [id number] 0000 Performed By: #### L [id number] #### [facility] [address] [place], [address] Bilirubin [Mass/Vol] 0.30 mg/dL Normal 0.20-1.00 [facility] Comment on above: Order Comment: 111.2 UNKNOWN [id number] 0000 Result Comment: For patients on eltrombopag therapy, use of Dimension [place] TBIL is not recommended. Performed By: #### L [id number] #### [facility] [address] [place], [address] BUN/CRE 12.6 RATIO Normal 10-20 [facility] Comment on above: Order Comment: 111.2 UNKNOWN [id number] 0000 Performed By: #### L 544.5611 #### [facility] [address] [place], [address] CA,Total 9.4 mg/dL Normal 8.5-10.1 [facility] Comment on above: Order Comment: 111.2 UNKNOWN [id number] 0000 Performed By: #### L 749.7117 #### [facility] [address] [place], [address] Chloride [Moles/Vol] 109 mmol/L High 98-107 [facility] Comment on above: Order Comment: 111.2 UNKNOWN [id number] 0000 Performed By: #### L 533.0056 #### [facility] [address] [place], [address] CO2 [Moles/Vol] 25.0 mmol/L Normal 21.0-32.0 [facility] Comment on above: Order Comment: 111.2 UNKNOWN [id number] 0000 Performed By: #### L 523.9830 #### [facility] [address] [place], [address] Creatinine [Mass/Vol] 2.14 mg/dL High 0.70-1.30 [facility] Comment on above: Order Comment: 111.2 UNKNOWN [id number] 0000 Result Comment: The validity of the calculated GFR GFRAA in patients over 70 years has not been determined. Clinical correlation is essential. Performed By: #### L 693.2838 #### [facility] [address] [place], [address] EST GFR - AA 41 mL/min Low >60 [facility] Comment on above: Order Comment: 111.2 UNKNOWN 20250701 0000 Result Comment: Afri can [place]inese GFR Calc Performed By: #### L 678.9669 #### [facility] [address] [place], [address] GAP 7 Normal 5-15 [facility] Comment on above: Order Comment: 111.2 UNKNOWN [id number] 0000 Performed By: #### L [id number] #### [facility] [address] [place], [address] GFR/1.73 sq M.predicted among non-blacks MDRD (S/P/Bld) [Vol rate/Area] 34 mL/min/{1.73_m2} Low >60 [facility] Comment on above: Order Comment: 111.2 UNKNOWN 20250701 0000 Result Comment: Non- GFR Calc Performed By: #### L [id number] #### [facility] [address] [place], [address] Globulin (S) [Mass/Vol] 3.1 g/dL Normal 2.2-4.2 [facility] Comment on above: Order Comment: 111.2 UNKNOWN [id number] 0000 Performed By: #### L [id number] #### [facility] [address] [place], [address] Glucose [Mass/Vol] 115 mg/dL High 74-106 [facility] Comment on above: Order Comment: 111.2 UNKNOWN 20250701 0000 Result Comment: Fast ing Glucose result from 100 to 125 mg/dL suggests IMPAIRED HOMEOSTASIS per A.D.A. criteria. Performed By: #### L [id number] #### [facility] [address] [place], [address] Potassium [Moles/Vol] 4.1 mmol/L Normal 3.5-5.1 [facility] Comment on above: Order Comment: 111.2 UNKNOWN [id number] 0000 Performed By: #### L [id number] #### [facility] [address] [place], [address] Sodium [Moles/Vol] 141 mmol/L Normal 136-145 [facility] Comment on above: Order Comment: 111.2 UNKNOWN [id number] 0000 Performed By: #### L [id number] #### [facility] [address] [place], [place], [address] T PROT 6.2 g/dL Low 6.4-8.2 [facility] Comment on above: Order Comment: 111.2 UNKNOWN [id number] 0000 Performed By: #### L [id number] #### [facility] [address] [place], [address] Urea nitrogen [Mass/Vol] 27 mg/dL High 7-18 [facility] Comment on above: Order Comment: 111.2 UNKNOWN [id number] 0000 Performed By: #### L [id number] #### [facility] [address] [place], [place], [address] Eosinophil percentageOrdered By: Adam Ferraro on 01-02-2025 Eosinophils/100 WBC (Bld) 5.3 % High 0-5 [facility] Erythrocyte distribution wid th ratioOrdered By: Adam Ferraro on 01-02-2025 Erythrocyte distribution width (RBC) [Ratio] 12.9 % 11.6-14.6 [facility] Erythrocyte distribution wid th standard deviationOrdered By: Adam Ferraro on 01-02-2025 Erythrocyte distribution width (RBC) [Entitic vol] 41.9 fL 35.1-43.9 [facility] Erythrocyte distribution width (RBC) [Ratio] 41.9 fl 35.1-43.9 [facility] Estimated glomerular filtrat ion rate (GFR) AmericanOrdered By: Adam Ferraro on 01-02-2025 Estimated GFR (MDRD) Amer 41 mL/min Low >60 [facility] Comment on above: GFR Calc Glomerular filtration rate ( GFR) estimationOrdered By: Adam Ferraro on 01-02-2025 Estimated GFR (MDRD) Non-Af Amer 34 mL/min Low >60 [facility] Comment on above: Non- GFR Calc GFR/1.73 sq M.predicted among non-blacks MDRD (S/P/Bld) [Vol rate/Area] 34 mL/min/{1.73_m2} Low >60 [facility] Comment on above: Non- GFR Calc Glucose measurementOrdered B y: Adam Jasmine on 01-02-2025 Glucose [Mass/Vol] 115 mg/dL High 74-106 [facility] Comment on above: Fasting Glucose resu lt from 100 to 125 mg/dL suggests IMPAIRED HOMEOSTASIS per A.D.A. criteria. Hematocrit Auto (Bld) [Volum e fraction]Ordered By: Adam Ferraro on 01-02-2025 Hematocrit (Bld) [Volume fraction] 40.5 % 40-54 [facility] Hemoglobin measurementOrdere d By: Adam Ferraro on 01-02-2025 Hemoglobin (Bld) [Mass/Vol] 13.4 g/dL 13.0-16.5 [facility] Immature granulocytes/100 WB C Auto (Bld)Ordered By: Adam Ferraro on 01-02-2025 Immature granulocytes/100 WBC (Bld) 0.500 % 0.0-0.9 [facility] Comment on above: IG% - Immature Granu locytes (promyelocytes, myelocytes and metamyelocytes) > 1% indicates that a LEFT SHIFT is Present. Laboratory - Chemistry and C hemistry - challengeOrdered By: Adam Ferraro on 01-02-2025 AST [Catalytic activity/Vol] 12 U/L Low 15-37 [facility] Lithiumon 01-02-2025 LI 0.60 mmol/L Normal 0.60-1.20 [facility] Comment on above: Order Comment: 111.2 UNKNOWN [id number] Performed By: #### L [id number] #### [facility] [address] [facility] [place], [address] [place] levelOrdered By: Benoit Ferraro on 01-02-2025 [place] Level 0.60 mmol/L 0.60-1.20 [facility] Lymphocytes Auto (Unsp spec) [#/Vol]Ordered By: Adam Ferraro on 01-02-2025 Lymphocytes (Bld) [#/Vol] 2.41 10*3/uL 0.83-4.5 1 [facility] Lymphocytes/100 WBC Auto (Un sp spec)Ordered By: Adam Ferraro on 01-02-2025 Lymphocytes/100 WBC (Bld) 25.1 % 19-41 [facility] MCV (mean corpuscular volume ) determinationOrdered By: Adam Ferraro on 01-02-2025 MCV (RBC) [Entitic vol] 90.8 fL 80-94 [facility] Mean corpuscular hemoglobin (MCH) determinationOrdered By: Adam Ferraro on 01-02-2025 MCH (RBC) [Entitic mass] 30.0 pg 27.0-32.0 [facility] Mean corpuscular hemoglobin concentration (MCHC) determinationOrdered By: Adam Ferraro on 01-02-2025 MCHC (RBC) [Mass/Vol] 33.1 g/dL 32-36 [facility] Mean platelet volume determi nationOrdered By: Adam Ferraro on 01-02-2025 Platelet mean volume (Bld) [Entitic vol] 9.5 fL 6.2-12.0 [facility] Monocyte percentageOrdered B y: Adam Ferraro on 01-02-2025 Monocytes/100 WBC (Bld) 9.4 % 0-10 [facility] Neutrophil percentageOrdered By: Adam Ferraro on 01-02-2025 Neutrophils/100 WBC (Bld) 58.6 % 47-70 [facility] Nucleated red blood cell per centageOrdered By: Adam Ferraro on 01-02-2025 Nucleated RBC/100 WBC (Bld) [Ratio] 0 % 0-5 [facility] Phosphoruson 01-02-2025 Phosphate [Mass/Vol] 4.7 mg/dL Normal 2.5-4.9 [facility] Comment on above: Order Comment: 111.2 UNKNOWN [id number] 0000 Performed By: #### L [id number] #### [facility] [address] [place] [address], [address] Phosphorus measurementOrdere d By: Adam Ferraro on 01-02-2025 Phosphorus Level 4.7 mg/dL 2.5-4.9 [facility] Platelet countOrdered By: Sabino Ferraro on 01-02-2025 Platelets (Bld) [#/Vol] 247 10*3/uL 150-450 [facility] Potassium measurementOrdered By: Adam Ferraro on 01-02-2025 Potassium [Moles/Vol] 4.1 mmol/L 3.5-5.1 [facility] RBC Auto (Bld) [#/Vol]Ordere d By: Adam Ferraro on 01-02-2025 RBC (Bld) [#/Vol] 4.46 10*6/uL Low 4.6-6.2 [facility] Serum anion gap measurementO rdered By: Adam Ferraro on 01-02-2025 Anion gap [Moles/Vol] 7 mmol/L 5-15 [facility] Serum globulin measurementOr dered By: Adam Ferraro on 01-02-2025 Globulin (S) [Mass/Vol] 3.1 g/dL 2.2-4.2 [facility] Serum or plasma alanine sesay otransferase (ALT) measurementOrdered By: Adam Ferraro on 01-02-2025 ALT [Catalytic activity/Vol] 17 U/L 16-61 [facility] Serum or plasma albumin you urement (mass/volume)Ordered By: Adam Ferraro on 01-02-2025 Albumin [Mass/Vol] 3.1 g/dL Low 3.2-5.0 [facility] Serum or plasma alkaline hal sphatase measurementOrdered By: Adam Ferraro on 01-02-2025 ALP [Catalytic activity/Vol] 81 U/L 45-117 [facility] Serum or plasma calcium you urement (mass/volume)Ordered By: Adam Ferraro on 01-02-2025 Calcium [Mass/Vol] 9.4 mg/dL 8.5-10.1 [facility] Serum or plasma creatinine m easurement (mass/volume)Ordered By: Adam Ferraro on 01-02-2025 Creatinine [Mass/Vol] 2.14 mg/dL High 0.70-1.30 [facility] Comment on above: The validity of the calculated GFR & GFRAA in patients over 70 years has not been determined. Clinical correlation is essential. Serum or plasma urea nitroge n measurement (mass/volume)Ordered By: Adam Ferraro on 01-02-2025 Urea nitrogen [Mass/Vol] 27 mg/dL High 7-18 [facility] Sodium levelOrdered By: Spike Ferraro on 01-02-2025 Sodium [Moles/Vol] 141 mmol/L 136-145 [facility] Total proteinOrdered By: Benoit loni Jasmine on 01-02-2025 Protein [Mass/Vol] 6.2 g/dL Low 6.4-8.2 [facility] White blood cell (WBC) count Ordered By: Adam Ferraro on 01-02-2025 WBC (Bld) [#/Vol] 9.6 10*3/uL 4.4-11.0 [facility] Albumin to globulin ratioOrd ered By: Adam Ferraro on 12-28-2024 Albumin/Globulin [Mass ratio] 0.9 {ratio} 0.9-2.4 [facility] Bilirubin, totalOrdered By: Adam Ferraro on 12-28-2024 Bilirubin [Mass/Vol] 0.30 mg/dL 0.20-1.00 [facility] Comment on above: For patients on eltr ombopag therapy, use of Dimension [place] TBIL is not recommended. Blood urea nitrogen (BUN)/cr eatinine ratioOrdered By: Adam Ferraro on 12-28-2024 Urea nitrogen/Creatinine [Mass ratio] 10.0 mg/mg 10-20 [facility] CBC-Complete Blood Cnt No Di ffon 12-28-2024 Erythrocyte distribution width (RBC) [Ratio] 13.1 % Normal 11.6-14.6 [facility] Comment on above: Order Comment: 111.2 Performed By: #### L 100.0500, L500.4050, L501.1400 #### [facility] [address] [place], [address] Hematocrit (Bld) [Volume fraction] 40.4 % Normal 40-54 [facility] Comment on above: Order Comment: 111.2 Performed By: #### L 100.0500, [id number], L501.1400 #### [facility] [address] [place], [address] Hemoglobin (Bld) [Mass/Vol] 13.2 g/dL Normal 13.0-16.5 [facility] Comment on above: Order Comment: 111.2 Performed By: #### L 100.0500, [id number], L501.1400 #### [facility] [address] [place], [address] MCH (RBC) [Entitic mass] 29.7 pg Normal 27.0-32.0 [facility] Comment on above: Order Comment: 111.2 Performed By: #### L 100.0500, [id number], L501.1400 #### [facility] [address] [place], [address] MCHC (RBC) [Mass/Vol] 32.7 g/dL Normal 32-36 [facility] Comment on above: Order Comment: 111.2 Performed By: #### L 100.0500, [id number], L501.1400 #### [facility] [address] [place], [address] MCV (RBC) [Entitic vol] 91.0 fL Normal 80-94 [facility] Comment on above: Order Comment: 111.2 Performed By: #### L 100.0500, [id number], L501.1400 #### [facility] [address] [place], [address] Platelet mean volume (Bld) [Entitic vol] 9.3 fL Normal 6.2-12.0 [facility] Comment on above: Order Comment: 111.2 Performed By: #### L 100.0500, [id number], L501.1400 #### [facility] [address] [place], [address] Platelets (Bld) [#/Vol] 248 10*3/uL Normal 150-450 [facility] Comment on above: Order Comment: 111.2 Performed By: #### L 100.0500, [id number], L501.1400 #### [facility] [address] [place], [address] RBC (Bld) [#/Vol] 4.44 10*6/uL Low 4.6-6.2 [facility] Comment on above: Order Comment: 111.2 Performed By: #### L 100.0500, [id number], L501.1400 #### [facility] [address] [place], [address] RDW SD 42.4 fl Normal 35.1-43.9 [facility] Comment on above: Order Comment: 111.2 Performed By: #### L 100.0500, [id number], L501.1400 #### [facility] [address] [place], [address] WBC (Bld) [#/Vol] 10.5 10*3/uL Normal 4.4-11.0 [facility] Comment on above: Order Comment: 111.2 Performed By: #### L 100.0500, [id number], L501.1400 #### [facility] [address] [place], [address] Carbon dioxide measurementOr dered By: Adam Ferraro on 12-28-2024 CO2 [Moles/Vol] 25.0 mmol/L 21.0-32.0 [facility] Chloride measurementOrdered By: Adam Ferraro on 12-28-2024 Chloride [Moles/Vol] 110 mmol/L High 98-107 [facility] Comprehensive Metabolic Prof ilon 12-28-2024 Albumin [Mass/Vol] 3.0 g/dL Low 3.2-5.0 [facility] Comment on above: Order Comment: 111.2 Performed By: #### L 100.0500, [id number], L501.1400 #### [facility] [address] [place], [address] Albumin/Globulin [Mass ratio] 0.9 {ratio} Normal 0.9-2.4 [facility] Comment on above: Order Comment: 111.2 Performed By: #### L 100.0500, [id number], L501.1400 #### [facility] [address] [place], [address] ALK P 81 U/L Normal 45-117 [facility] Comment on above: Order Comment: 111.2 Performed By: #### L 100.0500, [id number], L501.1400 #### [facility] [address] [place], [address] ALT [Catalytic activity/Vol] 20 U/L Normal 16-61 [facility] Comment on above: Order Comment: 111.2 Performed By: #### L 100.0500, [id number], L501.1400 #### [facility] [address] [place], [address] AST [Catalytic activity/Vol] 11 U/L Low 15-37 [facility] Comment on above: Order Comment: 111.2 Performed By: #### L 100.0500, [id number], L501.1400 #### [facility] [address] [place], [address] Bilirubin [Mass/Vol] 0.30 mg/dL Normal 0.20-1.00 [facility] Comment on above: Order Comment: 111.2 Result Comment: For patients on eltrombopag therapy, use of Dimension [place] TBIL is not recommended. Performed By: #### L 100.0500, [id number], L501.1400 #### [facility] [address] [place], [address] BUN/CRE 10.0 RATIO Normal 10-20 [facility] Comment on above: Order Comment: 111.2 Performed By: #### L 100.0500, [id number], L501.1400 #### [facility] [address] [place], [address] CA,Total 9.3 mg/dL Normal 8.5-10.1 [facility] Comment on above: Order Comment: 111.2 Performed By: #### L 100.0500, [id number], L501.1400 #### [facility] [address] [place], [address] Chloride [Moles/Vol] 110 mmol/L High 98-107 [facility] Comment on above: Order Comment: 111.2 Performed By: #### L 100.0500, [id number], L501.1400 #### [facility] [address] [place], [address] CO2 [Moles/Vol] 25.0 mmol/L Normal 21.0-32.0 [facility] Comment on above: Order Comment: 111.2 Performed By: #### L 100.0500, [id number], L501.1400 #### [facility] [address] [place], [address] Creatinine [Mass/Vol] 2.09 mg/dL High 0.70-1.30 [facility] Comment on above: Order Comment: 111.2 Result Comment: The validity of the calculated GFR GFRAA in patients over 70 years has not been determined. Clinical correlation is essential. Performed By: #### L 100.0500, L500.4050, L501.1400 #### [facility] [address] [place], [address] EST GFR - AA 42 mL/min Low >60 [facility] Comment on above: Order Comment: 111.2 Result Comment: Afri can [place] GFR Calc Performed By: #### L 100.0500, [id number], L501.1400 #### [facility] [address] [place], [address] GAP 6 Normal 5-15 [facility] Comment on above: Order Comment: 111.2 Performed By: #### L 100.0500, L500.4050, L501.1400 #### [facility] [address] [place], [address] GFR/1.73 sq M.predicted among non-blacks MDRD (S/P/Bld) [Vol rate/Area] 34 mL/min/{1.73_m2} Low >60 [facility] Comment on above: Order Comment: 111.2 Result Comment: Non- GFR Calc Performed By: #### L 100.0500, L500.4050, L501.1400 #### [facility] [address] [place], [address] Globulin (S) [Mass/Vol] 3.4 g/dL Normal 2.2-4.2 [facility] Comment on above: Order Comment: 111.2 Performed By: #### L 100.0500, [id number], L501.1400 #### [facility] [address] [place], [address] Glucose [Mass/Vol] 119 mg/dL High 74-106 [facility] Comment on above: Order Comment: 111.2 Result Comment: Fast ing Glucose result from 100 to 125 mg/dL suggests IMPAIRED HOMEOSTASIS per A.D.A. criteria. Performed By: #### L 100.0500, L500.4050, L501.1400 #### [facility] [address] [place], [address] Potassium [Moles/Vol] 4.3 mmol/L Normal 3.5-5.1 [facility] Comment on above: Order Comment: 111.2 Performed By: #### L 100.0500, L500.4050, L501.1400 #### [facility] [address] [place], [address] Sodium [Moles/Vol] 141 mmol/L Normal 136-145 [facility] Comment on above: Order Comment: 111.2 Performed By: #### L 100.0500, L500.4050, L501.1400 #### [facility] [address] [place], [address] T PROT 6.4 g/dL Normal 6.4-8.2 [facility] Comment on above: Order Comment: 111.2 Performed By: #### L 100.0500, L500.4050, L501.1400 #### [facility] [address] [place], [place], [address] Urea nitrogen [Mass/Vol] 21 mg/dL High 7-18 [facility] Comment on above: Order Comment: 111.2 Performed By: #### L 100.0500, L500.4050, L501.1400 #### [facility] [address] [place], [place], [address] Erythrocyte distribution wid th ratioOrdered By: Aadm Ferraro on 12-28-2024 Erythrocyte distribution width (RBC) [Ratio] 13.1 % 11.6-14.6 [facility] Erythrocyte distribution wid th standard deviationOrdered By: Adam Ferraro on 12-28-2024 Erythrocyte distribution width (RBC) [Entitic vol] 42.4 fL 35.1-43.9 [facility] Erythrocyte distribution width (RBC) [Ratio] 42.4 fl 35.1-43.9 [facility] Estimated glomerular filtrat ion rate (GFR) AmericanOrdered By: Adam Ferraro on 12-28-2024 Estimated GFR (MDRD) Amer 42 mL/min Low >60 [facility] Comment on above: GFR Calc Glomerular filtration rate ( GFR) estimationOrdered By: Adam Ferraro on 12-28-2024 Estimated GFR (MDRD) Non-Af Amer 34 mL/min Low >60 [facility] Comment on above: Non- GFR Calc GFR/1.73 sq M.predicted among non-blacks MDRD (S/P/Bld) [Vol rate/Area] 34 mL/min/{1.73_m2} Low >60 [facility] Comment on above: Non- GFR Calc Glucose measurementOrdered B y: Adam Ferraro on 12-28-2024 Glucose [Mass/Vol] 119 mg/dL High 74-106 [facility] Comment on above: Fasting Glucose resu lt from 100 to 125 mg/dL suggests IMPAIRED HOMEOSTASIS per A.D.A. criteria. Hematocrit Auto (Bld) [Volum e fraction]Ordered By: Adam Ferraro on 12-28-2024 Hematocrit (Bld) [Volume fraction] 40.4 % 40-54 [facility] Hemoglobin measurementOrdere d By: Adam Ferraro on 12-28-2024 Hemoglobin (Bld) [Mass/Vol] 13.2 g/dL 13.0-16.5 [facility] - Chemistry and C hemistry - challengeOrdered By: Adam Ferraro on 12-28-2024 AST [Catalytic activity/Vol] 11 U/L Low 15-37 [facility] MCV (mean corpuscular volume ) determinationOrdered By: Adam Ferraro on 12-28-2024 MCV (RBC) [Entitic vol] 91.0 fL 80-94 [facility] Mean corpuscular hemoglobin (MCH) determinationOrdered By: Adam Ferraro on 12-28-2024 MCH (RBC) [Entitic mass] 29.7 pg 27.0-32.0 [facility] Mean corpuscular hemoglobin concentration (MCHC) determinationOrdered By: Adam Ferraro on 12-28-2024 MCHC (RBC) [Mass/Vol] 32.7 g/dL 32-36 [facility] Mean platelet volume determi nationOrdered By: Adam Ferraro on 12-28-2024 Platelet mean volume (Bld) [Entitic vol] 9.3 fL 6.2-12.0 [facility] Platelet countOrdered By: Sabino Ferraro on 12-28-2024 Platelets (Bld) [#/Vol] 248 10*3/uL 150-450 [facility] Potassium measurementOrdered By: Adam Ferraro on 12-28-2024 Potassium [Moles/Vol] 4.3 mmol/L 3.5-5.1 [facility] RBC Auto (Bld) [#/Vol]Ordere d By: Adam Ferraro on 12-28-2024 RBC (Bld) [#/Vol] 4.44 10*6/uL Low 4.6-6.2 [facility] Serum anion gap measurementO rdered By: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 01-06-2024 Basophil percentage 4.2 mg/dL 2.5-4.9 [facility] Basophils/100 WBC (Bld) 0.8 % 0-1 [facility] Chloride [Moles/Vol] 109 mmol/L 98-107 [facility] Eosinophils/100 WBC (Bld) 3.9 % 0-5 [facility] Glucose [Mass/Vol] 113 mg/dL 74-106 [facility] Comment on above: Fasting Glucose resu lt from 100 to 125 mg/dL suggests IMPAIRED HOMEOSTASIS per A.D.A. criteria. Hemoglobin (Bld) [Mass/Vol] 13.7 g/dL 13.0-16.5 [facility] Monocytes/100 WBC (Bld) 8.4 % 0-10 [facility] Neutrophils (Bld) [#/Vol] 6.3 10*3/uL 2.0-7.7 [facility] Neutrophils/100 WBC (Bld) 65.7 % 47-70 [facility] Potassium [Moles/Vol] 4.2 mmol/L 3.5-5.1 [facility] Sodium [Moles/Vol] 143 mmol/L 136-145 [facility] WBC (Bld) [#/Vol] 9.6 10*3/uL 4.4-11.0 [facility] Determination of erythrocyte mean corpuscular volume (MCV)Ordered By: Alfredo Phipps on 01-06-2024 MCV (RBC) [Entitic vol] 90.1 fL 80-94 [facility] Erythrocyte distribution wid th ratioOrdered By: Alfredo Phipps on 01-06-2024 Erythrocyte distribution width (RBC) [Ratio] 13.2 % 11.6-14.6 [facility] Erythrocyte distribution wid th standard deviationOrdered By: Alfredo Phipps on 01-06-2024 Erythrocyte distribution width (RBC) [Entitic vol] 43.2 fL 35.1-43.9 [facility] Hematocrit Auto (Bld) [Volum e fraction]Ordered By: Alfredo Phipps on 01-06-2024 Hematocrit (Bld) [Volume fraction] 41.7 % 40-54 [facility] Immature granulocytes/100 WB C Auto (Bld)Ordered By: Alfredo Phipps on 01-06-2024 Immature granulocytes/100 WBC (Bld) 0.300 % 0.0-0.9 [facility] Comment on above: IG% - Immature Granu locytes (promyelocytes, myelocytes and metamyelocytes) > 1% indicates that a LEFT SHIFT is Present. Laboratory - Chemistry and C hemistry - challengeOrdered By: Alfredo Phipps on 01-06-2024 CO2 [Moles/Vol] 24.0 mmol/L 21.0-32.0 [facility] Urea nitrogen/Creatinine [Mass ratio] 8.9 mg/mg 10-20 [facility] Laboratory - Hematology and Cell countsOrdered By: Alfredo Phipps on 01-06-2024 MCH (RBC) [Entitic mass] 29.6 pg 27.0-32.0 [facility] MCHC (RBC) [Mass/Vol] 32.9 g/dL 32-36 [facility] Nucleated RBC/100 WBC (Bld) [Ratio] 0 % 0-5 [facility] Platelet mean volume (Bld) [Entitic vol] 9.6 fL 6.2-12.0 [facility] Platelets (Bld) [#/Vol] 209 10*3/uL 150-450 [facility] No Panel InformationOrdered By: Alfredo Phipps on 01-06-2024 Estimated GFR (MDRD) Amer 44 mL/min >60 [facility] Comment on above: GFR Calc Estimated GFR (MDRD) Non-Af Amer 36 mL/min >60 [facility] Comment on above: Non- GFR Calc [place] Level 0.60 mmol/L 0.60-1.20 [facility] RBC Auto (Bld) [#/Vol]Ordere d By: Alfredo Phipps on 01-06-2024 RBC (Bld) [#/Vol] 4.63 10*6/uL 4.6-6.2 [facility] Serum or plasma calcium you urement (mass/volume)Ordered By: Alfredo Phipps on 01-06-2024 Calcium [Mass/Vol] 9.3 mg/dL 8.5-10.1 [facility] Serum or plasma creatinine m easurement (mass/volume)Ordered By: Alfredo Phipps on 01-06-2024 Creatinine [Mass/Vol] 2.02 mg/dL 0.70-1.30 [facility] Comment on above: The validity of the calculated GFR & GFRAA in patients over 70 years has not been determined. Clinical correlation is essential. Serum or plasma urea nitroge n measurement (mass/volume)Ordered By: Alfredo Phipps on 01-06-2024 Urea nitrogen [Mass/Vol] 18 mg/dL 7-18 [facility] Thin prep Papanicolaou smear with manual screeningOrdered By: Alfredo Phipps on 01-06-2024 Thin prep Papanicolaou smear with manual screening 3.3 g/dL 3.2-5.0 [facility] Protein (U) [Mass/Vol] 19.0 mg/dL 0.0-11.8 [facility] Urine creatinine measurement (mass/volume)Ordered By: Alfredo Phipps on 01-06-2024 Creatinine (U) [Mass/Vol] 122.00 mg/dL NO RANGE EST. [facility] Urine protein/creatinine mas s ratioOrdered By: Alfredo Phipps on 01-06-2024 Protein/Creatinine (U) [Mass ratio] 156 mg/g CRE 0-200 [facility] CBC W Auto Differential pane l (Bld)on 12-20-2023 Basophils (Bld) [#/Vol] 0.11 10*3/uL High <0.11 k/uL [facility] Basophils/100 WBC (Bld) 1.0 % [facility] Differential cell count method Nom (Bld) Auto [facility] Eosinophils (Bld) [#/Vol] 0.31 10*3/uL <0.46 k/ uL [facility] Eosinophils/100 WBC (Bld) 2.8 % [facility] Erythrocyte distribution width (RBC) [Ratio] 12.9 % 11.5 - 15.0 % [facility] Hematocrit (Bld) [Volume fraction] 46.0 % 39.0 - 51.0 % [facility] Hemoglobin (Bld) [Mass/Vol] 15.2 g/dL 13.0 - 17.0 g/dL [facility] Immature granulocytes (Bld) [#/Vol] 0.06 10*3/uL <0.10 k/uL [facility] Immature granulocytes/100 WBC (Bld) 0.5 % [facility] Lymphocytes (Bld) [#/Vol] 1.82 10*3/uL 1. 00 - 4.00 k/uL [facility] Lymphocytes/100 WBC (Bld) 16.5 % [facility] MCH (RBC) [Entitic mass] 28.9 pg 26. 0 - 34.0 pg [facility] MCHC (RBC) [Mass/Vol] 33.0 g/dL 30.5 - 36.0 g/dL [facility] MCV (RBC) [Entitic vol] 87.5 fL 80.0 - 100.0 fL [facility] Monocytes (Bld) [#/Vol] 0.88 10*3/uL High <0.87 k/uL [facility] Monocytes/100 WBC (Bld) 8.0 % [facility] Neutrophils (Bld) [#/Vol] 7.82 10*3/uL High 1. 45 - 7.50 k/uL [facility] Neutrophils/100 WBC (Bld) 71.2 % [facility] Nucleated RBC (Bld) [#/Vol] <0.01 k/uL [facility] Nucleated RBC/100 WBC (Bld) [Ratio] 0.0 /100 WBC [facility] Platelet mean volume (Bld) [Entitic vol] 9.4 fL 9.0 - 12.7 fL [facility] Platelets (Bld) [#/Vol] 247 10*3/uL 150 - 400 k/uL [facility] RBC (Bld) [#/Vol] 5.26 10*6/uL 4.20 - 6.0 0 m/uL [facility] WBC (Bld) [#/Vol] 11.00 10*3/uL 3.70 - 11.00 k/uL [facility] CYSTATIN Con 12-20-2023 Cystatin C [Mass/Vol] 1.87 mg/L High 0.61 - 0.95 mg/L [facility] Cystatin C eGFR 34 mL/min/1.73m Low >=60 mL/min/1.73 m [facility] Comprehensive metabolic 2000 panelon 12-20-2023 Albumin [Mass/Vol] 4.2 g/dL 3.9 - 4.9 g/dL [facility] ALP [Catalytic activity/Vol] 105 U/L 38 - 113 U/L [facility] ALT [Catalytic activity/Vol] 31 U/L 10 - 54 U/L [facility] Anion gap [Moles/Vol] 15 mmol/L 9 - 18 mmol/L [facility] AST [Catalytic activity/Vol] 19 U/L 14 - 40 U/L [facility] Bilirubin [Mass/Vol] 0.3 mg/dL 0.2 - 1 .3 mg/dL [facility] Calcium [Mass/Vol] 10.2 mg/dL 8.5 - 10. 2 mg/dL [facility] Chloride [Moles/Vol] 103 mmol/L 97 - 10 5 mmol/L [facility] CO2 [Moles/Vol] 24 mmol/L 22 - 30 mmol/L [facility] Creatinine [Mass/Vol] 2.22 mg/dL High 0.73 - 1.22 mg/dL [facility] Estimated Glomerular Filtration Rate 33 mL/min/1.73m Low >=60 mL/min/1.73 m [facility] Glucose [Mass/Vol] 114 mg/dL High 74 - 99 mg/dL [facility] Potassium [Moles/Vol] 4.2 mmol/L 3.7 - 5.1 mmol/L [facility] Protein [Mass/Vol] 7.0 g/dL 6.3 - 8.0 g/dL [facility] Sodium [Moles/Vol] 142 mmol/L 136 - 144 mmol/L [facility] Urea nitrogen [Mass/Vol] 19 mg/dL 9 - 24 mg/dL [facility] LIPID PANEL, NONFASTINGon Cholesterol [Mass/Vol] 139 mg/dL <200 mg/dL [facility] HDL Cholesterol, Nonfasting 32 mg/dL Low >39 mg/dL [facility] LDL Cholesterol, Nonfasting 51 mg/dL <100 mg/dL [facility] LDL/HDL Ratio, Nonfasting 1.59 mg/dL <2.54 mg/d L [facility] Non HDL Cholesterol, Nonfasting 107 mg/dL <130 mg/dL [facility] Total Chol/HDL Ratio, Nonfasting 4.34 mg/dL <5.10 mg/dL [facility] Triglycerides, Nonfasting 280 mg/dL High <150 mg/dL [facility] VLDL Cholesterol, Nonfasting 56 mg/dL High <30 mg/dL [facility] PHOSPHORUS INORGANICon 12-20 Phosphate [Mass/Vol] 2.1 mg/dL Low 2.7 - 4 .8 mg/dL [facility] PROTEIN CREATININE RATIOon 0 12-20-2023 Protein/Creatinine (U) [Mass ratio] 0.07 mg/mg <0.15 mg/mg [facility] PTH INTACT BLDon 12-20-2023 Parathyrin.intact [Mass/Vol] 121 pg/mL High 15 - 65 pg/mL [facility] Protein/Creatinine (U) [Mass ratio]on 12-20-2023 Creatinine (U) [Mass/Vol] 103.8 mg/dL 20 .0 - 300.0 mg/dL [facility] Protein (U) [Mass/Vol] 7 mg/dL 0 - 2 0 mg/dL [facility] URINALYSIS, REFLEX MICROSCOP ICon 12-20-2023 Bilirubin Ql (U) Negative Negative [facility] Clarity (Unsp spec) Clear Clear [facility] Color (U) Light Yellow Yellow [facility] Glucose Test strip (U) [Mass/Vol] Negative Trace, Negative [facility] Hemoglobin Ql (U) Negative Negative, Trace [facility] Ketones Ql (U) Negative Negative, Trace [facility] Leukocyte esterase Test strip Ql (U) Negative Negative, 25 Mary/uL [facility] Nitrite Ql (U) Negative Negative [facility] pH (U) 6.0 [pH] 5.0 - 8.0 [facility] Protein (U) [Mass/Vol] Negative Trace , Negative [facility] Specific gravity (U) [Rel density] 1.010 1.005 - 1.030 [facility] Urobilinogen Ql (U) Normal Normal [facility] Absolute lymphocyte countOrd ered By: Alfredo Phipps on 12-09-2023 Lymphocytes Auto (Unsp spec) [#/Vol] 2.24 10*3/uL 0.83-4.51 [facility] Automated lymphocyte count a s percentage of total leukocytesOrdered By: Alfredo Phipps on 12-09-2023 Lymphocytes/100 WBC Auto (Unsp spec) 23.2 % 19-41 [facility] Basophil percentageOrdered B y: Alfredo Phipps on 12-09-2023 Basophil percentage 3.8 mg/dL 2.5-4.9 [facility] Basophils/100 WBC (Bld) 1.0 % 0-1 [facility] Chloride [Moles/Vol] 110 mmol/L 98-107 [facility] Eosinophils/100 WBC (Bld) 3.9 % 0-5 [facility] Glucose [Mass/Vol] 129 mg/dL 74-106 [facility] Comment on above: Fasting Glucose resu lt greater than or equal to 126 mg/dL suggests DIABETES MELLITUS per A.D.A. criteria. Hemoglobin (Bld) [Mass/Vol] 13.9 g/dL 13.0-16.5 [facility] Monocytes/100 WBC (Bld) 9.3 % 0-10 [facility] Neutrophils (Bld) [#/Vol] 6.0 10*3/uL 2.0-7.7 [facility] Neutrophils/100 WBC (Bld) 62.2 % 47-70 [facility] Potassium [Moles/Vol] 3.5 mmol/L 3.5-5.1 [facility] Sodium [Moles/Vol] 138 mmol/L 136-145 [facility] WBC (Bld) [#/Vol] 9.7 10*3/uL 4.4-11.0 [facility] Determination of erythrocyte mean corpuscular volume (MCV)Ordered By: Alfredo Phipps on 12-09-2023 MCV (RBC) [Entitic vol] 90.2 fL 80-94 [facility] Erythrocyte distribution wid th ratioOrdered By: Alfredo Phipps on 12-09-2023 Erythrocyte distribution width (RBC) [Ratio] 13.1 % 11.6-14.6 [facility] Erythrocyte distribution wid th standard deviationOrdered By: Alfredo Phipps on 12-09-2023 Erythrocyte distribution width (RBC) [Entitic vol] 43.2 fL 35.1-43.9 [facility] Hematocrit Auto (Bld) [Volum e fraction]Ordered By: Alfredo Phipps on 12-09-2023 Hematocrit (Bld) [Volume fraction] 43.2 % 40-54 [facility] Immature granulocytes/100 WB C Auto (Bld)Ordered By: Alfredo Phipps on 12-09-2023 Immature granulocytes/100 WBC (Bld) 0.400 % 0.0-0.9 [facility] Comment on above: IG% - Immature Granu locytes (promyelocytes, myelocytes and metamyelocytes) > 1% indicates that a LEFT SHIFT is Present. Laboratory - Chemistry and C hemistry - challengeOrdered By: Alfredo Phipps on 12-09-2023 CO2 [Moles/Vol] 21.0 mmol/L 21.0-32.0 [facility] Urea nitrogen/Creatinine [Mass ratio] 7.4 mg/mg 10-20 [facility] Laboratory - Hematology and Cell countsOrdered By: Alfredo Phipps on 12-09-2023 MCH (RBC) [Entitic mass] 29.0 pg 27.0-32.0 [facility] MCHC (RBC) [Mass/Vol] 32.2 g/dL 32-36 [facility] Nucleated RBC/100 WBC (Bld) [Ratio] 0 % 0-5 [facility] Platelets (Bld) [#/Vol] 235 10*3/uL 150-450 [facility] No Panel InformationOrdered By: Alfredo Phipps on 12-09-2023 Estimated GFR (MDRD) Amer 44 mL/min >60 [facility] Comment on above: GFR Calc Estimated GFR (MDRD) Non-Af Amer 36 mL/min >60 [facility] Comment on above: Non- GFR Calc [place] Level 0.40 mmol/L 0.60-1.20 [facility] Platelet mean volume Naresh-Ec ker (Bld) [Entitic vol]Ordered By: Alfredo Phipps on 12-09-2023 Platelet mean volume (Bld) [Entitic vol] 9.5 fL 6.2-12.0 [facility] RBC Auto (Bld) [#/Vol]Ordere d By: Alfredo Phipps on 12-09-2023 RBC (Bld) [#/Vol] 4.79 10*6/uL 4.6-6.2 [facility] Serum or plasma calcium you urement (mass/volume)Ordered By: Alfredo Phipps on 12-09-2023 Calcium [Mass/Vol] 9.3 mg/dL 8.5-10.1 [facility] Serum or plasma creatinine m easurement (mass/volume)Ordered By: Alfredo Phipps on 12-09-2023 Creatinine [Mass/Vol] 2.02 mg/dL 0.70-1.30 [facility] Comment on above: The validity of the calculated GFR & GFRAA in patients over 70 years has not been determined. Clinical correlation is essential. Serum or plasma urea nitroge n measurement (mass/volume)Ordered By: Alfredo Phipps on 12-09-2023 Urea nitrogen [Mass/Vol] 15 mg/dL 7-18 [facility] Thin prep Papanicolaou smear with manual screeningOrdered By: Alfredo Phipps on 12-09-2023 Thin prep Papanicolaou smear with manual screening 3.2 g/dL 3.2-5.0 [facility] Urine creatinine measurement (mass/volume)Ordered By: Adam Ferraro on 11-16-2023 Creatinine (U) [Mass/Vol] 178.00 mg/dL NO RANGE EST. [facility] Urine protein measurement (m ass/volume)Ordered By: Adam Ferraro on 11-16-2023 Protein (U) [Mass/Vol] 28.7 mg/dL 0.0-11.8 [facility] Urine protein/creatinine mas s ratioOrdered By: Adam Ferraro on 11-16-2023 Protein/Creatinine (U) [Mass ratio] 161 mg/g CRE 0-200 [facility] Absolute lymphocyte countOrd ered By: Adam Ferraro on 11-11-2023 Lymphocytes Auto (Unsp spec) [#/Vol] 3.10 10*3/uL 0.83-4.51 [facility] Basophil percentageOrdered B y: Adam Ferraro on 11-11-2023 Basophil percentage 3.6 mg/dL 2.5-4.9 [facility] Basophils/100 WBC (Bld) 0.8 % 0-1 [facility] Chloride [Moles/Vol] 108 mmol/L 98-107 [facility] Eosinophils/100 WBC (Bld) 3.4 % 0-5 [facility] Glucose [Mass/Vol] 120 mg/dL 74-106 [facility] Comment on above: Fasting Glucose resu lt from 100 to 125 mg/dL suggests IMPAIRED HOMEOSTASIS per A.D.A. criteria. Neutrophils (Bld) [#/Vol] 7.1 10*3/uL 2.0-7.7 [facility] Neutrophils/100 WBC (Bld) 61.0 % 47-70 [facility] Potassium [Moles/Vol] 3.6 mmol/L 3.5-5.1 [facility] Sodium [Moles/Vol] 140 mmol/L 136-145 [facility] WBC (Bld) [#/Vol] 11.6 10*3/uL 4.4-11.0 [facility] Blood erythrocytes count (nu mber/volume)Ordered By: Adam Ferraro on 11-11-2023 RBC (Bld) [#/Vol] 4.98 10*6/uL 4.6-6.2 [facility] Blood hemoglobin measurement (mass/volume)Ordered By: Adam Ferraro on 11-11-2023 Hemoglobin (Bld) [Mass/Vol] 14.4 g/dL 13.0-16.5 [facility] Blood lymphocytes/100 leukoc ytesOrdered By: Adam Ferraro on 11-11-2023 Lymphocytes/100 WBC (Bld) 26.7 % 19-41 [facility] Blood monocytes/100 leukocyt esOrdered By: Adam Ferraro on 11-11-2023 Monocytes/100 WBC (Bld) 7.3 % 0-10 [facility] Blood platelet mean volumeOr dered By: Adam Ferraro on 11-11-2023 Platelet mean volume (Bld) [Entitic vol] 9.4 fL 6.2-12.0 [facility] Determination of erythrocyte mean corpuscular volume (MCV)Ordered By: Adam Ferraro on 11-11-2023 MCV (RBC) [Entitic vol] 89.8 fL 80-94 [facility] Hematocrit Auto (Bld) [Volum e fraction]Ordered By: Adam Ferraro on 11-11-2023 Hematocrit (Bld) [Volume fraction] 44.7 % 40-54 [facility] Laboratory - Chemistry and C hemistry - challengeOrdered By: Adam Ferraro on 11-11-2023 CO2 [Moles/Vol] 24.0 mmol/L 21.0-32.0 [facility] Urea nitrogen/Creatinine [Mass ratio] 7.8 mg/mg 10-20 [facility] - Hematology and Cell countsOrdered By: Adam Ferraro on 11-11-2023 Erythrocyte distribution width (RBC) [Entitic vol] 42.7 fL 35.1-43.9 [facility] Erythrocyte distribution width (RBC) [Ratio] 13.1 % 11.6-14.6 [facility] Immature granulocytes/100 WBC (Bld) 0.800 % 0.0-0.9 [facility] Comment on above: IG% - Immature Granu locytes (promyelocytes, myelocytes and metamyelocytes) > 1% indicates that a LEFT SHIFT is Present. MCH (RBC) [Entitic mass] 28.9 pg 27.0-32.0 [facility] Nucleated RBC/100 WBC (Bld) [Ratio] 0 % 0-5 [facility] MCHC Auto (RBC) [Mass/Vol]Or dered By: Adam Ferraro on 11-11-2023 MCHC (RBC) [Mass/Vol] 32.2 g/dL 32-36 [facility] No Panel InformationOrdered By: Adam Ferraro on 11-11-2023 Estimated GFR (MDRD) Amer 37 mL/min >60 [facility] Comment on above: GFR Calc Estimated GFR (MDRD) Non-Af Amer 31 mL/min >60 [facility] Comment on above: Non- GFR Calc [place] Level 0.60 mmol/L 0.60-1.20 [facility] Platelets bldOrdered By: Benoit Ferraro on 11-11-2023 Platelets (Bld) [#/Vol] 252 10*3/uL 150-450 [facility] Serum or plasma albumin you urement (mass/volume)Ordered By: Adam Ferraro on 11-11-2023 Albumin [Mass/Vol] 3.1 g/dL 3.2-5.0 [facility] Serum or plasma calcium you urement (mass/volume)Ordered By: Adam Ferraro on 11-11-2023 Calcium [Mass/Vol] 8.9 mg/dL 8.5-10.1 [facility] Serum or plasma creatinine m easurement (mass/volume)Ordered By: Adam Ferraro on 11-11-2023 Creatinine [Mass/Vol] 2.31 mg/dL 0.70-1.30 [facility] Comment on above: The validity of the calculated GFR & GFRAA in patients over 70 years has not been determined. Clinical correlation is essential. Serum or plasma urea nitroge n measurement (mass/volume)Ordered By: Adam Ferraro on 11-11-2023 Urea nitrogen [Mass/Vol] 18 mg/dL 7-18 [facility] Serum or plasma uric acid me asurement (mass/volume)Ordered By: Adam Ferraro on 10-27-2023 Urate [Mass/Vol] 8.1 mg/dL 3.5-7.2 [facility] Comment on above: The drugs N-Acetylcy steine and Metamizole may falsely depress this assay. Absolute lymphocyte countOrd ered By: Alfredo Phipps on 10-14-2023 Lymphocytes Auto (Unsp spec) [#/Vol] 1.52 10*3/uL 0.83-4.51 [facility] Basophil percentageOrdered B y: Alfredo Phipps on 10-14-2023 Basophil percentage 3.2 mg/dL 2.5-4.9 [facility] Basophils/100 WBC (Bld) 1.2 % 0-1 [facility] Chloride [Moles/Vol] 110 mmol/L 98-107 [facility] Eosinophils/100 WBC (Bld) 5.0 % 0-5 [facility] Glucose [Mass/Vol] 151 mg/dL 74-106 [facility] Comment on above: Fasting Glucose resu lt greater than or equal to 126 mg/dL suggests DIABETES MELLITUS per A.D.A. criteria. Neutrophils (Bld) [#/Vol] 6.6 10*3/uL 2.0-7.7 [facility] Neutrophils/100 WBC (Bld) 68.8 % 47-70 [facility] Potassium [Moles/Vol] 3.8 mmol/L 3.5-5.1 [facility] Sodium [Moles/Vol] 141 mmol/L 136-145 [facility] WBC (Bld) [#/Vol] 9.5 10*3/uL 4.4-11.0 [facility] Blood erythrocytes count (nu mber/volume)Ordered By: Alfredo Phipps on 10-14-2023 RBC (Bld) [#/Vol] 4.51 10*6/uL 4.6-6.2 [facility] Blood hemoglobin measurement (mass/volume)Ordered By: Alfredo Phipps on 10-14-2023 Hemoglobin (Bld) [Mass/Vol] 13.0 g/dL 13.0-16.5 [facility] Blood lymphocytes/100 leukoc ytesOrdered By: Alfredo Phipps on 10-14-2023 Lymphocytes/100 WBC (Bld) 15.9 % 19-41 [facility] Blood monocytes/100 leukocyt esOrdered By: Alfredo Phipps on 10-14-2023 Monocytes/100 WBC (Bld) 8.3 % 0-10 [facility] Blood platelet mean volumeOr dered By: Alfredo Phipps on 10-14-2023 Platelet mean volume (Bld) [Entitic vol] 9.7 fL 6.2-12.0 [facility] Determination of erythrocyte mean corpuscular volume (MCV)Ordered By: Alfredo Phipps on 10-14-2023 MCV (RBC) [Entitic vol] 90.2 fL 80-94 [facility] Hematocrit Auto (Bld) [Volum e fraction]Ordered By: Alfredo Phipps on 10-14-2023 Hematocrit (Bld) [Volume fraction] 40.7 % 40-54 [facility] - Chemistry and C hemistry - challengeOrdered By: Alfredo Phipps on 10-14-2023 CO2 [Moles/Vol] 26.0 mmol/L 21.0-32.0 [facility] Urea nitrogen/Creatinine [Mass ratio] 7.5 mg/mg 10-20 [facility] - Hematology and Cell countsOrdered By: Alfredo Phipps on 10-14-2023 Erythrocyte distribution width (RBC) [Entitic vol] 43.6 fL 35.1-43.9 [facility] Erythrocyte distribution width (RBC) [Ratio] 13.2 % 11.6-14.6 [facility] Immature granulocytes/100 WBC (Bld) 0.800 % 0.0-0.9 [facility] Comment on above: IG% - Immature Granu locytes (promyelocytes, myelocytes and metamyelocytes) > 1% indicates that a LEFT SHIFT is Present. MCH (RBC) [Entitic mass] 28.8 pg 27.0-32.0 [facility] Nucleated RBC/100 WBC (Bld) [Ratio] 0 % 0-5 [facility] MCHC Auto (RBC) [Mass/Vol]Or dered By: Alfredo Phipps on 10-14-2023 MCHC (RBC) [Mass/Vol] 31.9 g/dL 32-36 [facility] No Panel InformationOrdered By: Alfredo Phipps on 10-14-2023 Estimated GFR (MDRD) Amer 41 mL/min >60 [facility] Comment on above: GFR Calc Estimated GFR (MDRD) Non-Af Amer 34 mL/min >60 [facility] Comment on above: Non- GFR Calc [place] Level 0.50 mmol/L 0.60-1.20 [facility] Platelets bldOrdered By: Jennifer Phipps on 10-14-2023 Platelets (Bld) [#/Vol] 224 10*3/uL 150-450 [facility] Serum or plasma albumin you urement (mass/volume)Ordered By: Alfredo Phipps on 10-14-2023 Albumin [Mass/Vol] 2.9 g/dL 3.2-5.0 [facility] Serum or plasma calcium you urement (mass/volume)Ordered By: Alfredo Phipps on 10-14-2023 Calcium [Mass/Vol] 8.5 mg/dL 8.5-10.1 [facility] Serum or plasma creatinine m easurement (mass/volume)Ordered By: Alfredo Phipps on 10-14-2023 Creatinine [Mass/Vol] 2.12 mg/dL 0.70-1.30 [facility] Comment on above: The validity of the calculated GFR & GFRAA in patients over 70 years has not been determined. Clinical correlation is essential. Serum or plasma urea nitroge n measurement (mass/volume)Ordered By: Alfredo Phipps on 10-14-2023 Urea nitrogen [Mass/Vol] 16 mg/dL 7-18 [facility] Urine creatinine measurement (mass/volume)Ordered By: Alfredo Phipps on 10-14-2023 Creatinine (U) [Mass/Vol] 195.00 mg/dL NO RANGE EST. [facility] Urine protein measurement (m ass/volume)Ordered By: Alfredo Phipps on 10-14-2023 Protein (U) [Mass/Vol] 23.4 mg/dL 0.0-11.8 [facility] Urine protein/creatinine mas s ratioOrdered By: Alfredo Phipps on 10-14-2023 Protein/Creatinine (U) [Mass ratio] 120 mg/g CRE 0-200 [facility] Serum or plasma uric acid me asurement (mass/volume)Ordered By: Adam Ferraro on 09-27-2023 Urate [Mass/Vol] 7.3 mg/dL 3.5-7.2 [facility] Comment on above: The drugs N-Acetylcy steine and Metamizole may falsely depress this assay. Absolute lymphocyte countOrd ered By: Alfredo Phipps on 09-16-2023 Lymphocytes Auto (Unsp spec) [#/Vol] 1.78 10*3/uL 0.83-4.51 [facility] Basophil percentageOrdered B y: Alfredo Phipps on 09-16-2023 Basophil percentage 4.3 mg/dL 2.5-4.9 [facility] Basophils/100 WBC (Bld) 1.0 % 0-1 [facility] Chloride [Moles/Vol] 109 mmol/L 98-107 [facility] Eosinophils/100 WBC (Bld) 4.4 % 0-5 [facility] Glucose [Mass/Vol] 143 mg/dL 74-106 [facility] Comment on above: Fasting Glucose resu lt greater than or equal to 126 mg/dL suggests DIABETES MELLITUS per A.D.A. criteria. Neutrophils (Bld) [#/Vol] 6.3 10*3/uL 2.0-7.7 [facility] Neutrophils/100 WBC (Bld) 67.0 % 47-70 [facility] Potassium [Moles/Vol] 4.1 mmol/L 3.5-5.1 [facility] Sodium [Moles/Vol] 139 mmol/L 136-145 [facility] WBC (Bld) [#/Vol] 9.4 10*3/uL 4.4-11.0 [facility] Blood erythrocytes count (nu mber/volume)Ordered By: Alfredo Phipps on 09-16-2023 RBC (Bld) [#/Vol] 4.63 10*6/uL 4.6-6.2 [facility] Blood hemoglobin measurement (mass/volume)Ordered By: Alfredo Phipps on 09-16-2023 Hemoglobin (Bld) [Mass/Vol] 13.4 g/dL 13.0-16.5 [facility] Blood lymphocytes/100 leukoc ytesOrdered By: Alfredo Phipps on 09-16-2023 Lymphocytes/100 WBC (Bld) 19.0 % 19-41 [facility] Blood monocytes/100 leukocyt esOrdered By: Alfredo Phipps on 09-16-2023 Monocytes/100 WBC (Bld) 8.3 % 0-10 [facility] Blood platelet mean volumeOr dered By: Alfredo Phipps on 09-16-2023 Platelet mean volume (Bld) [Entitic vol] 9.6 fL 6.2-12.0 [facility] Determination of erythrocyte mean corpuscular volume (MCV)Ordered By: Alfredo Phipps on 09-16-2023 MCV (RBC) [Entitic vol] 90.5 fL 80-94 [facility] Hematocrit Auto (Bld) [Volum e fraction]Ordered By: Alfredo Phipps on 09-16-2023 Hematocrit (Bld) [Volume fraction] 41.9 % 40-54 [facility] - Chemistry and C hemistry - challengeOrdered By: Alfredo Phipps on 09-16-2023 CO2 [Moles/Vol] 23.0 mmol/L 21.0-32.0 [facility] Urea nitrogen/Creatinine [Mass ratio] 11.6 mg/mg 10-20 [facility] - Hematology and Cell countsOrdered By: Alfredo Phipps on 09-16-2023 Erythrocyte distribution width (RBC) [Entitic vol] 46.1 fL 35.1-43.9 [facility] Erythrocyte distribution width (RBC) [Ratio] 13.9 % 11.6-14.6 [facility] Immature granulocytes/100 WBC (Bld) 0.300 % 0.0-0.9 [facility] Comment on above: IG% - Immature Granu locytes (promyelocytes, myelocytes and metamyelocytes) > 1% indicates that a LEFT SHIFT is Present. MCH (RBC) [Entitic mass] 28.9 pg 27.0-32.0 [facility] Nucleated RBC/100 WBC (Bld) [Ratio] 0 % 0-5 [facility] ([facility]) [Mass/Vol]Or dered By: Alfredo Phipps on 09-16-2023 MCHC (RBC) [Mass/Vol] 32.0 g/dL 32-36 [facility] No Panel InformationOrdered By: Alfredo Phipps on 09-16-2023 Estimated GFR (MDRD) Amer 45 mL/min >60 [facility] Comment on above: GFR Calc Estimated GFR (MDRD) Non-Af Amer 37 mL/min >60 [facility] Comment on above: Non- GFR Calc [place] Level 0.60 mmol/L 0.60-1.20 [facility] Platelets bldOrdered By: Jennifer Phipps on 09-16-2023 Platelets (Bld) [#/Vol] 212 10*3/uL 150-450 [facility] Serum or plasma albumin you urement (mass/volume)Ordered By: Alfredo Phipps on 09-16-2023 Albumin [Mass/Vol] 2.9 g/dL 3.2-5.0 [facility] Serum or plasma calcium you urement (mass/volume)Ordered By: Alfredo Phipps on 09-16-2023 Calcium [Mass/Vol] 9.0 mg/dL 8.5-10.1 [facility] Serum or plasma creatinine m easurement (mass/volume)Ordered By: Alfredo Phipps on 09-16-2023 Creatinine [Mass/Vol] 1.98 mg/dL 0.70-1.30 [facility] Comment on above: The validity of the calculated GFR & GFRAA in patients over 70 years has not been determined. Clinical correlation is essential. Serum or plasma urea nitroge n measurement (mass/volume)Ordered By: Alfredo Phipps on 09-16-2023 Urea nitrogen [Mass/Vol] 23 mg/dL 7-18 [facility] Urine creatinine measurement (mass/volume)Ordered By: Alfredo Phipps on 09-16-2023 Creatinine (U) [Mass/Vol] 44.20 mg/dL NO RANGE EST. [facility] Urine protein measurement (m ass/volume)Ordered By: Alfredo Phipps on 09-16-2023 Protein (U) [Mass/Vol] mg/dL 0.0-11.8 [facility] Urine protein/creatinine mas s ratioOrdered By: Alfredo Phipps on 09-16-2023 Protein/Creatinine (U) [Mass ratio] 131 mg/g CRE 0-200 [facility] Urine creatinine measurement (mass/volume)Ordered By: Adam Ferraro on 08-22-2023 Creatinine (U) [Mass/Vol] 105.00 mg/dL NO RANGE EST. [facility] Urine protein measurement (m ass/volume)Ordered By: Adam Ferraro on 08-22-2023 Protein (U) [Mass/Vol] 19.3 mg/dL 0.0-11.8 [facility] Urine protein/creatinine mas s ratioOrdered By: Adam Ferraro on 08-22-2023 Protein/Creatinine (U) [Mass ratio] 184 mg/g CRE 0-200 [facility] Absolute lymphocyte countOrd ered By: Adam Ferraro on 08-19-2023 Lymphocytes Auto (Unsp spec) [#/Vol] 2.02 10*3/uL 0.83-4.51 [facility] Basophil percentageOrdered B y: Adam Ferraro on 08-19-2023 Basophil percentage 4.0 mg/dL 2.5-4.9 [facility] Basophils/100 WBC (Bld) 0.7 % 0-1 [facility] Chloride [Moles/Vol] 108 mmol/L 98-107 [facility] Eosinophils/100 WBC (Bld) 4.4 % 0-5 [facility] Glucose [Mass/Vol] 161 mg/dL 74-106 [facility] Comment on above: Fasting Glucose resu lt greater than or equal to 126 mg/dL suggests DIABETES MELLITUS per A.D.A. criteria. Neutrophils (Bld) [#/Vol] 7.4 10*3/uL 2.0-7.7 [facility] Neutrophils/100 WBC (Bld) 66.8 % 47-70 [facility] Potassium [Moles/Vol] 3.9 mmol/L 3.5-5.1 [facility] Sodium [Moles/Vol] 140 mmol/L 136-145 [facility] WBC (Bld) [#/Vol] 11.1 10*3/uL 4.4-11.0 [facility] Blood erythrocytes count (nu mber/volume)Ordered By: Adam Ferraro on 08-19-2023 RBC (Bld) [#/Vol] 4.67 10*6/uL 4.6-6.2 [facility] Blood hemoglobin measurement (mass/volume)Ordered By: Adam Ferraro on 08-19-2023 Hemoglobin (Bld) [Mass/Vol] 13.5 g/dL 13.0-16.5 [facility] Blood lymphocytes/100 leukoc ytesOrdered By: Adam Ferraro on 08-19-2023 Lymphocytes/100 WBC (Bld) 18.3 % 19-41 [facility] Blood monocytes/100 leukocyt esOrdered By: Adam Ferraro on 08-19-2023 Monocytes/100 WBC (Bld) 9.1 % 0-10 [facility] Blood platelet mean volumeOr dered By: Adam Ferraro on 08-19-2023 Platelet mean volume (Bld) [Entitic vol] 9.4 fL 6.2-12.0 [facility] Determination of erythrocyte mean corpuscular volume (MCV)Ordered By: Adam Ferraro on 08-19-2023 MCV (RBC) [Entitic vol] 90.1 fL 80-94 [facility] Hematocrit Auto (Bld) [Volum e fraction]Ordered By: Adam Ferraro on 08-19-2023 Hematocrit (Bld) [Volume fraction] 42.1 % 40-54 [facility] - Chemistry and C hemistry - challengeOrdered By: Adam Ferraro on 08-19-2023 CO2 [Moles/Vol] 26.0 mmol/L 21.0-32.0 [facility] Urea nitrogen/Creatinine [Mass ratio] 10.9 mg/mg 10-20 [facility] - Hematology and Cell countsOrdered By: Adam Ferraro on 08-19-2023 Erythrocyte distribution width (RBC) [Entitic vol] 45.8 fL 35.1-43.9 [facility] Erythrocyte distribution width (RBC) [Ratio] 13.8 % 11.6-14.6 [facility] Immature granulocytes/100 WBC (Bld) 0.700 % 0.0-0.9 [facility] Comment on above: IG% - Immature Granu locytes (promyelocytes, myelocytes and metamyelocytes) > 1% indicates that a LEFT SHIFT is Present. MCH (RBC) [Entitic mass] 28.9 pg 27.0-32.0 [facility] Nucleated RBC/100 WBC (Bld) [Ratio] 0 % 0-5 [facility] MCHC Auto (RBC) [Mass/Vol]Or dered By: Adam Ferraro on 08-19-2023 MCHC (RBC) [Mass/Vol] 32.1 g/dL 32-36 [facility] No Panel InformationOrdered By: Adam Ferraro on 08-19-2023 Estimated GFR (MDRD) Amer 44 mL/min >60 [facility] Comment on above: GFR Calc Estimated GFR (MDRD) Non-Af Amer 36 mL/min >60 [facility] Comment on above: Non- GFR Calc [place] Level 0.50 mmol/L 0.60-1.20 [facility] Platelets bldOrdered By: Benoit Ferraro on 08-19-2023 Platelets (Bld) [#/Vol] 218 10*3/uL 150-450 [facility] Serum or plasma albumin you urement (mass/volume)Ordered By: Adam Ferraro on 08-19-2023 Albumin [Mass/Vol] 2.9 g/dL 3.2-5.0 [facility] Serum or plasma calcium you urement (mass/volume)Ordered By: Adam Ferraro on 08-19-2023 Calcium [Mass/Vol] 9.0 mg/dL 8.5-10.1 [facility] Serum or plasma creatinine m easurement (mass/volume)Ordered By: Adam Ferraro on 08-19-2023 Creatinine [Mass/Vol] 2.01 mg/dL 0.70-1.30 [facility] Comment on above: The validity of the calculated GFR & GFRAA in patients over 70 years has not been determined. Clinical correlation is essential. Serum or plasma urea nitroge n measurement (mass/volume)Ordered By: Adam Ferraro on 08-19-2023 Urea nitrogen [Mass/Vol] 22 mg/dL 7-18 [facility] Whole blood hemoglobin A1c/t otal hemoglobin ratio (mass fraction)Ordered By: Adam Ferraro on 08-19-2023 HbA1c (Bld) [Mass fraction] 7.2 % 3.8-5.6 [facility] Comment on above: Normal < 5.7 % Predi abetic 5.7 - 6.4 % Diabetic >or= 6.5 % Please note range changes. Basophil percentageOrdered B y: Adam Ferraro on 07-28-2023 Cholesterol [Mass/Vol] 124 mg/dL <200 [facility] Comment on above: <200 mg/dL Desirable 200-240 mg/dL Borderline >240 mg/dL High Risk Triglyceride [Mass/Vol] 234 mg/dL <199 [facility] Comment on above: The drugs N-Acetylcy steine and Metamizole may falsely depress this assay.Serum Triglycerides Reference Interval Normal <150 mg/dL Borderline high 150 - 199 mg/dL High 200 - 499 mg/dL Very High > or = 500 mg/dL Serum or plasma cholesterol in HDL measurement (mass/volume)Ordered By: Adam Ferraro on 07-28-2023 Cholesterol in HDL [Mass/Vol] 36 mg/dL >40 [facility] Comment on above: The drugs N-Acetylcy steine and Metamizole may falsely depress this assay. Reference Range HDL <40 mg/dL Low HDL Cholesterol HDL >or= 60 mg/dL High HDL Cholesterol Serum or plasma cholesterol in VLDL measurement (mass/volume)Ordered By: Adam Ferraro on 07-28-2023 Cholesterol in VLDL [Mass/Vol] 47 mg/dL 5-40 [facility] Serum or plasma low density lipoprotein (LDL) cholesterol measurement (mass/volume)Ordered By: Adam Ferraro on 07-28-2023 Cholesterol in LDL [Mass/Vol] 41 mg/dL 0-130 [facility] Serum or plasma uric acid me asurement (mass/volume)Ordered By: Adam Ferraro on 07-28-2023 Urate [Mass/Vol] 6.6 mg/dL 3.5-7.2 [facility] Comment on above: The drugs N-Acetylcy steine and Metamizole may falsely depress this assay. Urine creatinine measurement (mass/volume)Ordered By: Adam Ferraro on 07-24-2023 Creatinine (U) [Mass/Vol] 113.00 mg/dL NO RANGE EST. [facility] Urine protein measurement (m ass/volume)Ordered By: Adam Ferraro on 07-24-2023 Protein (U) [Mass/Vol] 15.1 mg/dL 0.0-11.8 [facility] Urine protein/creatinine mas s ratioOrdered By: Adam Ferraro on 07-24-2023 Protein/Creatinine (U) [Mass ratio] 134 mg/g CRE 0-200 [facility] Absolute lymphocyte countOrd ered By: Alfredo Phipps on 07-22-2023 Lymphocytes Auto (Unsp spec) [#/Vol] 1.60 10*3/uL 0.83-4.51 [facility] Basophil percentageOrdered B y: Alfredo Phipps on 07-22-2023 Basophil percentage 4.2 mg/dL 2.5-4.9 [facility] Basophils/100 WBC (Bld) 1.1 % 0-1 [facility] Chloride [Moles/Vol] 108 mmol/L 98-107 [facility] Eosinophils/100 WBC (Bld) 2.7 % 0-5 [facility] Glucose [Mass/Vol] 138 mg/dL 74-106 [facility] Comment on above: Fasting Glucose resu lt greater than or equal to 126 mg/dL suggests DIABETES MELLITUS per A.D.A. criteria. Neutrophils (Bld) [#/Vol] 6.9 10*3/uL 2.0-7.7 [facility] Neutrophils/100 WBC (Bld) 69.3 % 47-70 [facility] Potassium [Moles/Vol] 3.8 mmol/L 3.5-5.1 [facility] Sodium [Moles/Vol] 135 mmol/L 136-145 [facility] WBC (Bld) [#/Vol] 9.9 10*3/uL 4.4-11.0 [facility] Blood erythrocytes count (nu mber/volume)Ordered By: Alfredo Phipps on 07-22-2023 RBC (Bld) [#/Vol] 4.79 10*6/uL 4.6-6.2 [facility] Blood hemoglobin measurement (mass/volume)Ordered By: Alfredo Phipps on 07-22-2023 Hemoglobin (Bld) [Mass/Vol] 13.6 g/dL 13.0-16.5 [facility] Blood lymphocytes/100 leukoc ytesOrdered By: Alfredo Phipps on 07-22-2023 Lymphocytes/100 WBC (Bld) 16.1 % 19-41 [facility] Blood monocytes/100 leukocyt esOrdered By: Alfredo Phipps on 07-22-2023 Monocytes/100 WBC (Bld) 10.2 % 0-10 [facility] Blood platelet mean volumeOr dered By: Alfredo Phipps on 07-22-2023 Platelet mean volume (Bld) [Entitic vol] 10.8 fL 6.2-12.0 [facility] Determination of erythrocyte mean corpuscular volume (MCV)Ordered By: Alfredo Phipps on 07-22-2023 MCV (RBC) [Entitic vol] 98.1 fL 80-94 [facility] Hematocrit Auto (Bld) [Volum e fraction]Ordered By: Alfredo Phipps on 07-22-2023 Hematocrit (Bld) [Volume fraction] 47.0 % 40-54 [facility] - Chemistry and C hemistry - challengeOrdered By: Alfredo Phipps on 07-22-2023 CO2 [Moles/Vol] 19.0 mmol/L 21.0-32.0 [facility] Urea nitrogen/Creatinine [Mass ratio] 10.7 mg/mg 10-20 [facility] - Hematology and Cell countsOrdered By: Alfredo Phipps on 07-22-2023 Erythrocyte distribution width (RBC) [Entitic vol] 58.0 fL 35.1-43.9 [facility] Erythrocyte distribution width (RBC) [Ratio] 16.4 % 11.6-14.6 [facility] Immature granulocytes/100 WBC (Bld) 0.600 % 0.0-0.9 [facility] Comment on above: IG% - Immature Granu locytes (promyelocytes, myelocytes and metamyelocytes) > 1% indicates that a LEFT SHIFT is Present. MCH (RBC) [Entitic mass] 28.4 pg 27.0-32.0 [facility] Nucleated RBC/100 WBC (Bld) [Ratio] 0 % 0-5 [facility] MCHC Auto (RBC) [Mass/Vol]Or dered By: Alfredo Phipps on 07-22-2023 MCHC (RBC) [Mass/Vol] 28.9 g/dL 32-36 [facility] No Panel InformationOrdered By: Alfredo Phipps on 07-22-2023 Estimated GFR (MDRD) Amer 45 mL/min >60 [facility] Comment on above: GFR Calc Estimated GFR (MDRD) Non-Af Amer 37 mL/min >60 [facility] Comment on above: Non- GFR Calc [place] Level 0.60 mmol/L 0.60-1.20 [facility] Platelets bldOrdered By: Pet shonda Phipps on 07-22-2023 Platelets (Bld) [#/Vol] 209 10*3/uL 150-450 [facility] Serum or plasma albumin you urement (mass/volume)Ordered By: Alfredo Phipps on 07-22-2023 Albumin [Mass/Vol] 2.6 g/dL 3.2-5.0 [facility] Serum or plasma calcium you urement (mass/volume)Ordered By: Alfredo Phipps on 07-22-2023 Calcium [Mass/Vol] 9.1 mg/dL 8.5-10.1 [facility] Serum or plasma creatinine m easurement (mass/volume)Ordered By: Alfredo Phipps on 07-22-2023 Creatinine [Mass/Vol] 1.97 mg/dL 0.70-1.30 [facility] Comment on above: The validity of the calculated GFR & GFRAA in patients over 70 years has not been determined. Clinical correlation is essential. Serum or plasma urea nitroge n measurement (mass/volume)Ordered By: Alfredo Phipps on 07-22-2023 Urea nitrogen [Mass/Vol] 21 mg/dL 7-18 [facility] Absolute lymphocyte countOrd ered By: Alfredo Phipps on 06-24-2023 Lymphocytes Auto (Unsp spec) [#/Vol] 2.04 10*3/uL 0.83-4.51 [facility] Basophil percentageOrdered B y: Alfredo Phipps on 06-24-2023 Basophil percentage 4.4 mg/dL 2.5-4.9 [facility] Basophils/100 WBC (Bld) 1.2 % 0-1 [facility] Chloride [Moles/Vol] 107 mmol/L 98-107 [facility] Eosinophils/100 WBC (Bld) 5.2 % 0-5 [facility] Glucose [Mass/Vol] 144 mg/dL 74-106 [facility] Comment on above: Fasting Glucose resu lt greater than or equal to 126 mg/dL suggests DIABETES MELLITUS per A.D.A. criteria. Neutrophils (Bld) [#/Vol] 5.9 10*3/uL 2.0-7.7 [facility] Neutrophils/100 WBC (Bld) 62.3 % 47-70 [facility] Potassium [Moles/Vol] 3.7 mmol/L 3.5-5.1 [facility] Sodium [Moles/Vol] 138 mmol/L 136-145 [facility] WBC (Bld) [#/Vol] 9.4 10*3/uL 4.4-11.0 [facility] Blood erythrocytes count (nu mber/volume)Ordered By: Alfredo Phipps on 06-24-2023 RBC (Bld) [#/Vol] 4.95 10*6/uL 4.6-6.2 [facility] Blood hemoglobin measurement (mass/volume)Ordered By: Alfredo Phipps on 06-24-2023 Hemoglobin (Bld) [Mass/Vol] 14.2 g/dL 13.0-16.5 [facility] Blood lymphocytes/100 leukoc ytesOrdered By: Alfredo Phipps on 06-24-2023 Lymphocytes/100 WBC (Bld) 21.7 % 19-41 [facility] Blood monocytes/100 leukocyt esOrdered By: Alfredo Phipps on 06-24-2023 Monocytes/100 WBC (Bld) 9.1 % 0-10 [facility] Blood platelet mean volumeOr dered By: Alfredo Phipps on 06-24-2023 Platelet mean volume (Bld) [Entitic vol] 9.8 fL 6.2-12.0 [facility] Determination of erythrocyte mean corpuscular volume (MCV)Ordered By: Alfredo Phipps on 06-24-2023 MCV (RBC) [Entitic vol] 88.5 fL 80-94 [facility] Hematocrit Auto (Bld) [Volum e fraction]Ordered By: Alfredo Phipps on 06-24-2023 Hematocrit (Bld) [Volume fraction] 43.8 % 40-54 [facility] - Chemistry and C hemistry - challengeOrdered By: Alfredo Phipps on 06-24-2023 CO2 [Moles/Vol] 25.0 mmol/L 21.0-32.0 [facility] Urea nitrogen/Creatinine [Mass ratio] 11.5 mg/mg 10-20 [facility] - Hematology and Cell countsOrdered By: Alfredo Phipps on 06-24-2023 Erythrocyte distribution width (RBC) [Entitic vol] 42.3 fL 35.1-43.9 [facility] Erythrocyte distribution width (RBC) [Ratio] 13.1 % 11.6-14.6 [facility] Immature granulocytes/100 WBC (Bld) 0.500 % 0.0-0.9 [facility] Comment on above: IG% - Immature Granu locytes (promyelocytes, myelocytes and metamyelocytes) > 1% indicates that a LEFT SHIFT is Present. MCH (RBC) [Entitic mass] 28.7 pg 27.0-32.0 [facility] Nucleated RBC/100 WBC (Bld) [Ratio] 0 % 0-5 [facility] MCHC Auto (RBC) [Mass/Vol]Or dered By: Alfredo Phipps on 06-24-2023 MCHC (RBC) [Mass/Vol] 32.4 g/dL 32-36 [facility] No Panel InformationOrdered By: Alfredo Phipps on 06-24-2023 Estimated GFR (MDRD) Amer 49 mL/min >60 [facility] Comment on above: GFR Calc Estimated GFR (MDRD) Non-Af Amer 40 mL/min >60 [facility] Comment on above: Non- GFR Calc [place] Level 0.60 mmol/L 0.60-1.20 [facility] Platelets bldOrdered By: Jennifer Phipps on 06-24-2023 Platelets (Bld) [#/Vol] 213 10*3/uL 150-450 [facility] Serum or plasma albumin you urement (mass/volume)Ordered By: Alfredo Phipps on 06-24-2023 Albumin [Mass/Vol] 2.9 g/dL 3.2-5.0 [facility] Serum or plasma calcium you urement (mass/volume)Ordered By: Alfredo Phipps on 06-24-2023 Calcium [Mass/Vol] 9.1 mg/dL 8.5-10.1 [facility] Serum or plasma creatinine m easurement (mass/volume)Ordered By: Alfredo Phipps on 06-24-2023 Creatinine [Mass/Vol] 1.83 mg/dL 0.70-1.30 [facility] Comment on above: The validity of the calculated GFR & GFRAA in patients over 70 years has not been determined. Clinical correlation is essential. Serum or plasma urea nitroge n measurement (mass/volume)Ordered By: Alfredo Phipps on 06-24-2023 Urea nitrogen [Mass/Vol] 21 mg/dL 7-18 [facility] Serum or plasma uric acid me asurement (mass/volume)Ordered By: Alfredo Phipps on 06-24-2023 Urate [Mass/Vol] 6.5 mg/dL 3.5-7.2 [facility] Comment on above: The drugs N-Acetylcy steine and Metamizole may falsely depress this assay. Urine creatinine measurement (mass/volume)Ordered By: Alfredo Phipps on 06-24-2023 Creatinine (U) [Mass/Vol] 127.00 mg/dL NO RANGE EST. [facility] Urine protein measurement (m ass/volume)Ordered By: Alfredo Phipps on 06-24-2023 Protein (U) [Mass/Vol] 19.9 mg/dL 0.0-11.8 [facility] Urine protein/creatinine mas s ratioOrdered By: Alfredo Phipps on 06-24-2023 Protein/Creatinine (U) [Mass ratio] 157 mg/g CRE 0-200 [facility] Urine creatinine measurement (mass/volume)Ordered By: Adam Ferraro on 05-30-2023 Creatinine (U) [Mass/Vol] 73.90 mg/dL NO RANGE EST. [facility] Urine protein measurement (m ass/volume)Ordered By: Adam Ferraro on 05-30-2023 Protein (U) [Mass/Vol] 18.0 mg/dL 0.0-11.8 [facility] Urine protein/creatinine mas s ratioOrdered By: Adam Ferraro on 07-17-2023 Protein/Creatinine (U) [Mass ratio] 244 mg/g CRE 0-200 [facility] Absolute lymphocyte countOrd ered By: Adam Ferraro on 05-27-2023 Lymphocytes Auto (Unsp spec) [#/Vol] 1.85 10*3/uL 0.83-4.51 [facility] Basophil percentageOrdered B y: Adam Ferraro on 05-27-2023 Basophil percentage 3.9 mg/dL 2.5-4.9 [facility] Basophils/100 WBC (Bld) 1.1 % 0-1 [facility] Chloride [Moles/Vol] 106 mmol/L 98-107 [facility] Eosinophils/100 WBC (Bld) 3.3 % 0-5 [facility] Glucose [Mass/Vol] 208 mg/dL 74-106 [facility] Comment on above: Glucose result great er than or equal to 200 mg/dLsuggests DIABETES MELLITUS per A.D.A. criteria. Neutrophils (Bld) [#/Vol] 5.6 10*3/uL 2.0-7.7 [facility] Neutrophils/100 WBC (Bld) 64.5 % 47-70 [facility] Potassium [Moles/Vol] 3.7 mmol/L 3.5-5.1 [facility] Sodium [Moles/Vol] 138 mmol/L 136-145 [facility] WBC (Bld) [#/Vol] 8.7 10*3/uL 4.4-11.0 [facility] Blood erythrocytes count (nu mber/volume)Ordered By: Adam Ferraro on 05-27-2023 RBC (Bld) [#/Vol] 4.98 10*6/uL 4.6-6.2 [facility] Blood hemoglobin measurement (mass/volume)Ordered By: Adam Ferraro on 05-27-2023 Hemoglobin (Bld) [Mass/Vol] 14.4 g/dL 13.0-16.5 [facility] Blood lymphocytes/100 leukoc ytesOrdered By: Adam Ferraro on 05-27-2023 Lymphocytes/100 WBC (Bld) 21.2 % 19-41 [facility] Blood monocytes/100 leukocyt esOrdered By: Adam Ferraro on 05-27-2023 Monocytes/100 WBC (Bld) 9.3 % 0-10 [facility] Blood platelet mean volumeOr dered By: Adam Ferraro on 05-27-2023 Platelet mean volume (Bld) [Entitic vol] 10.0 fL 6.2-12.0 [facility] Determination of erythrocyte mean corpuscular volume (MCV)Ordered By: Adam Ferraro on 05-27-2023 MCV (RBC) [Entitic vol] 89.6 fL 80-94 [facility] Hematocrit Auto (Bld) [Volum e fraction]Ordered By: Adam Ferraro on 05-27-2023 Hematocrit (Bld) [Volume fraction] 44.6 % 40-54 [facility] - Chemistry and C hemistry - challengeOrdered By: Adam Ferraro on 05-27-2023 CO2 [Moles/Vol] 27.0 mmol/L 21.0-32.0 [facility] Urea nitrogen/Creatinine [Mass ratio] 11.5 mg/mg 10-20 [facility] - Hematology and Cell countsOrdered By: Adam Ferraro on 05-27-2023 Erythrocyte distribution width (RBC) [Entitic vol] 42.2 fL 35.1-43.9 [facility] Erythrocyte distribution width (RBC) [Ratio] 13.0 % 11.6-14.6 [facility] Immature granulocytes/100 WBC (Bld) 0.600 % 0.0-0.9 [facility] Comment on above: IG% - Immature Granu locytes (promyelocytes, myelocytes and metamyelocytes) > 1% indicates that a LEFT SHIFT is Present. MCH (RBC) [Entitic mass] 28.9 pg 27.0-32.0 [facility] Nucleated RBC/100 WBC (Bld) [Ratio] 0 % 0-5 [facility] MCHC Auto (RBC) [Mass/Vol]Or dered By: Adam Ferraro on 05-27-2023 MCHC (RBC) [Mass/Vol] 32.3 g/dL 32-36 [facility] No Panel InformationOrdered By: Adam Ferraro on 05-27-2023 Estimated GFR (MDRD) Amer 52 mL/min >60 [facility] Comment on above: GFR Calc Estimated GFR (MDRD) Non-Af Amer 43 mL/min >60 [facility] Comment on above: Non- GFR Calc [place] Level 0.40 mmol/L 0.60-1.20 [facility] Platelets bldOrdered By: Benoit Ferraro on 05-27-2023 Platelets (Bld) [#/Vol] 211 10*3/uL 150-450 [facility] Serum or plasma albumin you urement (mass/volume)Ordered By: Adam Ferraro on 05-27-2023 Albumin [Mass/Vol] 2.9 g/dL 3.2-5.0 [facility] Serum or plasma calcium you urement (mass/volume)Ordered By: Adam Ferraro on 05-27-2023 Calcium [Mass/Vol] 9.2 mg/dL 8.5-10.1 [facility] Serum or plasma creatinine m easurement (mass/volume)Ordered By: Adam Ferraro on 05-27-2023 Creatinine [Mass/Vol] 1.74 mg/dL 0.70-1.30 [facility] Comment on above: The validity of the calculated GFR & GFRAA in patients over 70 years has not been determined. Clinical correlation is essential. Serum or plasma urea nitroge n measurement (mass/volume)Ordered By: Adam Ferraro on 05-27-2023 Urea nitrogen [Mass/Vol] 20 mg/dL 7-18 [facility] Serum or plasma uric acid me asurement (mass/volume)Ordered By: Adam Ferraro on 05-27-2023 Urate [Mass/Vol] 4.9 mg/dL 3.5-7.2 [facility] Comment on above: The drugs N-Acetylcy steine and Metamizole may falsely depress this assay. Whole blood hemoglobin A1c/t otal hemoglobin ratio (mass fraction)Ordered By: Adam Ferraro on 05-19-2023 HbA1c (Bld) [Mass fraction] 11.1 % 3.8-5.6 [facility] Comment on above: Normal < 5.7 % Predi abetic 5.7 - 6.4 % Diabetic >or= 6.5 % Please note range changes. Absolute lymphocyte countOrd ered By: Alfredo Phipps on 04-29-2023 Lymphocytes Auto (Unsp spec) [#/Vol] 1.98 10*3/uL 0.83-4.51 [facility] Basophil percentageOrdered B y: Alfredo Phipps on 04-29-2023 Basophil percentage 3.6 mg/dL 2.5-4.9 [facility] Basophils/100 WBC (Bld) 1.0 % 0-1 [facility] Chloride [Moles/Vol] 105 mmol/L 98-107 [facility] Eosinophils/100 WBC (Bld) 2.7 % 0-5 [facility] Glucose [Mass/Vol] 300 mg/dL 74-106 [facility] Comment on above: Glucose result great er than or equal to 200 mg/dLsuggests DIABETES MELLITUS per A.D.A. criteria. Neutrophils (Bld) [#/Vol] 5.7 10*3/uL 2.0-7.7 [facility] Neutrophils/100 WBC (Bld) 64.2 % 47-70 [facility] Potassium [Moles/Vol] 3.9 mmol/L 3.5-5.1 [facility] Sodium [Moles/Vol] 138 mmol/L 136-145 [facility] WBC (Bld) [#/Vol] 8.9 10*3/uL 4.4-11.0 [facility] Blood erythrocytes count (nu mber/volume)Ordered By: Alfredo Phipps on 04-29-2023 RBC (Bld) [#/Vol] 4.74 10*6/uL 4.6-6.2 [facility] Blood hemoglobin measurement (mass/volume)Ordered By: Alfredo Phipps on 04-29-2023 Hemoglobin (Bld) [Mass/Vol] 13.6 g/dL 13.0-16.5 [facility] Blood lymphocytes/100 leukoc ytesOrdered By: Alfredo Phipps on 04-29-2023 Lymphocytes/100 WBC (Bld) 22.2 % 19-41 [facility] Blood monocytes/100 leukocyt esOrdered By: Alfredo Phipps on 04-29-2023 Monocytes/100 WBC (Bld) 9.2 % 0-10 [facility] Blood platelet mean volumeOr dered By: Alfredo Phipps on 04-29-2023 Platelet mean volume (Bld) [Entitic vol] 9.7 fL 6.2-12.0 [facility] Determination of erythrocyte mean corpuscular volume (MCV)Ordered By: Alfredo Phipps on 04-29-2023 MCV (RBC) [Entitic vol] 87.8 fL 80-94 [facility] Hematocrit Auto (Bld) [Volum e fraction]Ordered By: Alfredo Phipps on 04-29-2023 Hematocrit (Bld) [Volume fraction] 41.6 % 40-54 [facility] - Chemistry and C hemistry - challengeOrdered By: Alfredo Phipps on 04-29-2023 CO2 [Moles/Vol] 24.0 mmol/L 21.0-32.0 [facility] Urea nitrogen/Creatinine [Mass ratio] 13.7 mg/mg 10-20 [facility] - Hematology and Cell countsOrdered By: Alfredo Phipps on 04-29-2023 Erythrocyte distribution width (RBC) [Entitic vol] 41.7 fL 35.1-43.9 [facility] Erythrocyte distribution width (RBC) [Ratio] 12.9 % 11.6-14.6 [facility] Immature granulocytes/100 WBC (Bld) 0.700 % 0.0-0.9 [facility] Comment on above: IG% - Immature Granu locytes (promyelocytes, myelocytes and metamyelocytes) > 1% indicates that a LEFT SHIFT is Present. MCH (RBC) [Entitic mass] 28.7 pg 27.0-32.0 [facility] Nucleated RBC/100 WBC (Bld) [Ratio] 0 % 0-5 [facility] MCHC Auto (RBC) [Mass/Vol]Or dered By: Alfredo Phipps on 04-29-2023 MCHC (RBC) [Mass/Vol] 32.7 g/dL 32-36 [facility] No Panel InformationOrdered By: Alfredo Phipps on 04-29-2023 Estimated GFR (MDRD) Amer 51 mL/min >60 [facility] Comment on above: GFR Calc Estimated GFR (MDRD) Non-Af Amer 43 mL/min >60 [facility] Comment on above: Non- GFR Calc [place] Level 0.40 mmol/L 0.60-1.20 [facility] Platelets bldOrdered By: Jennifer Phipps on 04-29-2023 Platelets (Bld) [#/Vol] 204 10*3/uL 150-450 [facility] Serum or plasma albumin you urement (mass/volume)Ordered By: Alfredo Phipps on 04-29-2023 Albumin [Mass/Vol] 2.7 g/dL 3.2-5.0 [facility] Serum or plasma calcium you urement (mass/volume)Ordered By: Alfredo Phipps on 04-29-2023 Calcium [Mass/Vol] 8.9 mg/dL 8.5-10.1 [facility] Serum or plasma creatinine m easurement (mass/volume)Ordered By: Alfredo Phipps on 04-29-2023 Creatinine [Mass/Vol] 1.75 mg/dL 0.70-1.30 [facility] Comment on above: The validity of the calculated GFR & GFRAA in patients over 70 years has not been determined. Clinical correlation is essential. Serum or plasma urea nitroge n measurement (mass/volume)Ordered By: Alfredo Phipps on 04-29-2023 Urea nitrogen [Mass/Vol] 24 mg/dL 7-18 [facility] Serum or plasma uric acid me asurement (mass/volume)Ordered By: Alfredo Phipps on 04-27-2023 Urate [Mass/Vol] 4.8 mg/dL 3.5-7.2 [facility] Comment on above: The drugs N-Acetylcy steine and Metamizole may falsely depress this assay. Urine creatinine measurement (mass/volume)Ordered By: Adam Ferraro on 04-04-2023 Creatinine (U) [Mass/Vol] 96.50 mg/dL NO RANGE EST. [facility] Urine protein measurement (m ass/volume)Ordered By: Adam Ferraro on 04-04-2023 Protein (U) [Mass/Vol] 26.4 mg/dL 0.0-11.8 [facility] Urine protein/creatinine mas s ratioOrdered By: Adam Ferraro on 04-04-2023 Protein/Creatinine (U) [Mass ratio] 274 mg/g CRE 0-200 [facility] Absolute lymphocyte countOrd ered By: Adam Ferraro on 04-01-2023 Lymphocytes Auto (Unsp spec) [#/Vol] 1.91 10*3/uL 0.83-4.51 [facility] Basophil percentageOrdered B y: Adam Ferraro on 04-01-2023 Basophil percentage 3.3 mg/dL 2.5-4.9 [facility] Basophils/100 WBC (Bld) 1.1 % 0-1 [facility] Chloride [Moles/Vol] 105 mmol/L 98-107 [facility] Eosinophils/100 WBC (Bld) 2.7 % 0-5 [facility] Glucose [Mass/Vol] 317 mg/dL 74-106 [facility] Comment on above: Glucose result great er than or equal to 200 mg/dLsuggests DIABETES MELLITUS per A.D.A. criteria. Neutrophils (Bld) [#/Vol] 5.4 10*3/uL 2.0-7.7 [facility] Neutrophils/100 WBC (Bld) 64.7 % 47-70 [facility] Potassium [Moles/Vol] 3.8 mmol/L 3.5-5.1 [facility] Sodium [Moles/Vol] 137 mmol/L 136-145 [facility] WBC (Bld) [#/Vol] 8.4 10*3/uL 4.4-11.0 [facility] Blood erythrocytes count (nu mber/volume)Ordered By: Adam Ferraro on 04-01-2023 RBC (Bld) [#/Vol] 5.17 10*6/uL 4.6-6.2 [facility] Blood hemoglobin measurement (mass/volume)Ordered By: Adam Ferraro on 04-01-2023 Hemoglobin (Bld) [Mass/Vol] 14.7 g/dL 13.0-16.5 [facility] Blood lymphocytes/100 leukoc ytesOrdered By: Adam Ferraro on 04-01-2023 Lymphocytes/100 WBC (Bld) 22.7 % 19-41 [facility] Blood monocytes/100 leukocyt esOrdered By: Adam Ferraro on 04-01-2023 Monocytes/100 WBC (Bld) 8.2 % 0-10 [facility] Blood platelet mean volumeOr dered By: Adam Ferraro on 04-01-2023 Platelet mean volume (Bld) [Entitic vol] 9.8 fL 6.2-12.0 [facility] Determination of erythrocyte mean corpuscular volume (MCV)Ordered By: Adam Ferraro on 04-01-2023 MCV (RBC) [Entitic vol] 88.6 fL 80-94 [facility] Hematocrit Auto (Bld) [Volum e fraction]Ordered By: Adam Ferraro on 04-01-2023 Hematocrit (Bld) [Volume fraction] 45.8 % 40-54 [facility] - Chemistry and C hemistry - challengeOrdered By: Adam Ferraro on 04-01-2023 CO2 [Moles/Vol] 25.0 mmol/L 21.0-32.0 [facility] Urea nitrogen/Creatinine [Mass ratio] 13.7 mg/mg 10-20 [facility] - Hematology and Cell countsOrdered By: Adam Ferraro on 04-01-2023 Erythrocyte distribution width (RBC) [Entitic vol] 42.5 fL 35.1-43.9 [facility] Erythrocyte distribution width (RBC) [Ratio] 13.1 % 11.6-14.6 [facility] Immature granulocytes/100 WBC (Bld) 0.600 % 0.0-0.9 [facility] Comment on above: IG% - Immature Granu locytes (promyelocytes, myelocytes and metamyelocytes) > 1% indicates that a LEFT SHIFT is Present. MCH (RBC) [Entitic mass] 28.4 pg 27.0-32.0 [facility] Nucleated RBC/100 WBC (Bld) [Ratio] 0 % 0-5 [facility] MCHC Auto (RBC) [Mass/Vol]Or dered By: Adam Ferraro on 04-01-2023 MCHC (RBC) [Mass/Vol] 32.1 g/dL 32-36 [facility] No Panel InformationOrdered By: Adam Ferraro on 04-01-2023 Estimated GFR (MDRD) Amer 49 mL/min >60 [facility] Comment on above: GFR Calc Estimated GFR (MDRD) Non-Af Amer 41 mL/min >60 [facility] Comment on above: Non- GFR Calc [place] Level < 0.20 mmol/L 0.60-1.20 [facility] Platelets bldOrdered By: Benoit Ferraro on 04-01-2023 Platelets (Bld) [#/Vol] 209 10*3/uL 150-450 [facility] Serum or plasma albumin you urement (mass/volume)Ordered By: Adam Ferraro on 04-01-2023 Albumin [Mass/Vol] 3.0 g/dL 3.2-5.0 [facility] Serum or plasma calcium you urement (mass/volume)Ordered By: Adam Ferraro on 04-01-2023 Calcium [Mass/Vol] 8.9 mg/dL 8.5-10.1 [facility] Serum or plasma creatinine m easurement (mass/volume)Ordered By: Adam Ferraro on 04-01-2023 Creatinine [Mass/Vol] 1.82 mg/dL 0.70-1.30 [facility] Comment on above: The validity of the calculated GFR & GFRAA in patients over 70 years has not been determined. Clinical correlation is essential. Serum or plasma urea nitroge n measurement (mass/volume)Ordered By: Adam Ferraro on 04-01-2023 Urea nitrogen [Mass/Vol] 25 mg/dL 7-18 [facility] Absolute lymphocyte countOrd ered By: Alfredo Phipps on 03-04-2023 Lymphocytes Auto (Unsp spec) [#/Vol] 2.18 10*3/uL 0.83-4.51 [facility] Basophil percentageOrdered B y: Alfredo Phipps on 03-04-2023 Basophil percentage 3.9 mg/dL 2.5-4.9 [facility] Basophils/100 WBC (Bld) 0.9 % 0-1 [facility] Chloride [Moles/Vol] 109 mmol/L 98-107 [facility] Eosinophils/100 WBC (Bld) 3.5 % 0-5 [facility] Glucose [Mass/Vol] 179 mg/dL 74-106 [facility] Comment on above: Fasting Glucose resu lt greater than or equal to 126 mg/dL suggests DIABETES MELLITUS per A.D.A. criteria. Neutrophils (Bld) [#/Vol] 6.1 10*3/uL 2.0-7.7 [facility] Neutrophils/100 WBC (Bld) 63.2 % 47-70 [facility] Potassium [Moles/Vol] 3.9 mmol/L 3.5-5.1 [facility] Sodium [Moles/Vol] 138 mmol/L 136-145 [facility] WBC (Bld) [#/Vol] 9.6 10*3/uL 4.4-11.0 [facility] Blood erythrocytes count (nu mber/volume)Ordered By: Alfredo Phipps on 03-04-2023 RBC (Bld) [#/Vol] 4.74 10*6/uL 4.6-6.2 [facility] Blood hemoglobin measurement (mass/volume)Ordered By: Alfredo Phipps on 03-04-2023 Hemoglobin (Bld) [Mass/Vol] 13.6 g/dL 13.0-16.5 [facility] Blood lymphocytes/100 leukoc ytesOrdered By: Alfredo Phipps on 03-04-2023 Lymphocytes/100 WBC (Bld) 22.6 % 19-41 [facility] Blood monocytes/100 leukocyt esOrdered By: Alfredo Phipps on 03-04-2023 Monocytes/100 WBC (Bld) 9.4 % 0-10 [facility] Blood platelet mean volumeOr dered By: Alfredo Phipps on 03-04-2023 Platelet mean volume (Bld) [Entitic vol] 9.7 fL 6.2-12.0 [facility] Determination of erythrocyte mean corpuscular volume (MCV)Ordered By: Alfredo Phipps on 03-04-2023 MCV (RBC) [Entitic vol] 90.3 fL 80-94 [facility] Hematocrit Auto (Bld) [Volum e fraction]Ordered By: Alfredo Phipps on 03-04-2023 Hematocrit (Bld) [Volume fraction] 42.8 % 40-54 [facility] - Chemistry and C hemistry - challengeOrdered By: Alfredo Phipps on 03-04-2023 CO2 [Moles/Vol] 26.0 mmol/L 21.0-32.0 [facility] Urea nitrogen/Creatinine [Mass ratio] 13.9 mg/mg 10-20 [facility] - Hematology and Cell countsOrdered By: Alfredo Phipps on 03-04-2023 Erythrocyte distribution width (RBC) [Entitic vol] 42.8 fL 35.1-43.9 [facility] Erythrocyte distribution width (RBC) [Ratio] 12.9 % 11.6-14.6 [facility] Immature granulocytes/100 WBC (Bld) 0.400 % 0.0-0.9 [facility] Comment on above: IG% - Immature Granu locytes (promyelocytes, myelocytes and metamyelocytes) > 1% indicates that a LEFT SHIFT is Present. MCH (RBC) [Entitic mass] 28.7 pg 27.0-32.0 [facility] Nucleated RBC/100 WBC (Bld) [Ratio] 0 % 0-5 [facility] MCHC Auto (RBC) [Mass/Vol]Or dered By: Alfredo Phipps on 03-04-2023 MCHC (RBC) [Mass/Vol] 31.8 g/dL 32-36 [facility] No Panel InformationOrdered By: Alfredo Phipps on 03-04-2023 Estimated GFR (MDRD) Amer 55 mL/min >60 [facility] Comment on above: GFR Calc Estimated GFR (MDRD) Non-Af Amer 46 mL/min >60 [facility] Comment on above: Non- GFR Calc [place] Level 0.40 mmol/L 0.60-1.20 [facility] Platelets bldOrdered By: Jennifer Phipps on 03-04-2023 Platelets (Bld) [#/Vol] 207 10*3/uL 150-450 [facility] Serum or plasma albumin you urement (mass/volume)Ordered By: Alfredo Phipps on 03-04-2023 Albumin [Mass/Vol] 2.8 g/dL 3.2-5.0 [facility] Serum or plasma calcium you urement (mass/volume)Ordered By: Alfredo Phipps on 03-04-2023 Calcium [Mass/Vol] 9.2 mg/dL 8.5-10.1 [facility] Serum or plasma creatinine m easurement (mass/volume)Ordered By: Alfredo Phipps on 03-04-2023 Creatinine [Mass/Vol] 1.65 mg/dL 0.70-1.30 [facility] Comment on above: The validity of the calculated GFR & GFRAA in patients over 70 years has not been determined. Clinical correlation is essential. Serum or plasma urea nitroge n measurement (mass/volume)Ordered By: Alfredo Phipps on 03-04-2023 Urea nitrogen [Mass/Vol] 23 mg/dL 7-18 [facility] Serum or plasma uric acid me asurement (mass/volume)Ordered By: Alfredo Phipps on 02-25-2023 Urate [Mass/Vol] 5.6 mg/dL 3.5-7.2 [facility] Comment on above: The drugs N-Acetylcy steine and Metamizole may falsely depress this assay. Absolute lymphocyte countOrd ered By: Alfredo Phipps on 02-04-2023 Lymphocytes Auto (Unsp spec) [#/Vol] 2.03 10*3/uL 0.83-4.51 [facility] Basophil percentageOrdered B y: Alfredo Phipps on 02-04-2023 Basophil percentage 4.3 mg/dL 2.5-4.9 [facility] Basophils/100 WBC (Bld) 1.2 % 0-1 [facility] Chloride [Moles/Vol] 108 mmol/L 98-107 [facility] Eosinophils/100 WBC (Bld) 3.6 % 0-5 [facility] Glucose [Mass/Vol] 193 mg/dL 74-106 [facility] Comment on above: Fasting Glucose resu lt greater than or equal to 126 mg/dL suggests DIABETES MELLITUS per A.D.A. criteria. Neutrophils (Bld) [#/Vol] 6.1 10*3/uL 2.0-7.7 [facility] Neutrophils/100 WBC (Bld) 63.9 % 47-70 [facility] Potassium [Moles/Vol] 4.0 mmol/L 3.5-5.1 [facility] Sodium [Moles/Vol] 139 mmol/L 136-145 [facility] WBC (Bld) [#/Vol] 9.5 10*3/uL 4.4-11.0 [facility] Blood erythrocytes count (nu mber/volume)Ordered By: Alfredo Phipps on 02-04-2023 RBC (Bld) [#/Vol] 4.81 10*6/uL 4.6-6.2 [facility] Blood hemoglobin measurement (mass/volume)Ordered By: Alfredo Phipps on 02-04-2023 Hemoglobin (Bld) [Mass/Vol] 13.9 g/dL 13.0-16.5 [facility] Blood lymphocytes/100 leukoc ytesOrdered By: Alfredo Phipps on 02-04-2023 Lymphocytes/100 WBC (Bld) 21.4 % 19-41 [facility] Blood monocytes/100 leukocyt esOrdered By: Alfredo Phipps on 02-04-2023 Monocytes/100 WBC (Bld) 9.2 % 0-10 [facility] Blood platelet mean volumeOr dered By: Alfredo Phipps on 02-04-2023 Platelet mean volume (Bld) [Entitic vol] 9.4 fL 6.2-12.0 [facility] Determination of erythrocyte mean corpuscular volume (MCV)Ordered By: Alfredo Phipps on 02-04-2023 MCV (RBC) [Entitic vol] 94.2 fL 80-94 [facility] Hematocrit Auto (Bld) [Volum e fraction]Ordered By: Alfredo Phipps on 02-04-2023 Hematocrit (Bld) [Volume fraction] 45.3 % 40-54 [facility] - Chemistry and C hemistry - challengeOrdered By: Alfredo Phipps on 02-04-2023 CO2 [Moles/Vol] 24.0 mmol/L 21.0-32.0 [facility] Urea nitrogen/Creatinine [Mass ratio] 14.6 mg/mg 10-20 [facility] - Hematology and Cell countsOrdered By: Alfredo Phipps on 02-04-2023 Erythrocyte distribution width (RBC) [Entitic vol] 45.1 fL 35.1-43.9 [facility] Erythrocyte distribution width (RBC) [Ratio] 13.1 % 11.6-14.6 [facility] Immature granulocytes/100 WBC (Bld) 0.700 % 0.0-0.9 [facility] Comment on above: IG% - Immature Granu locytes (promyelocytes, myelocytes and metamyelocytes) > 1% indicates that a LEFT SHIFT is Present. MCH (RBC) [Entitic mass] 28.9 pg 27.0-32.0 [facility] Nucleated RBC/100 WBC (Bld) [Ratio] 0 % 0-5 [facility] Auto (RBC) [Mass/Vol]Or dered By: Alfredo Phipps on 02-04-2023 MCHC (RBC) [Mass/Vol] 30.7 g/dL 32-36 [facility] No Panel InformationOrdered By: Alfredo Phipps on 02-04-2023 Estimated GFR (MDRD) Amer 53 mL/min >60 [facility] Comment on above: GFR Calc Estimated GFR (MDRD) Non-Af Amer 44 mL/min >60 [facility] Comment on above: Non- GFR Calc [place] Level 0.50 mmol/L 0.60-1.20 [facility] Platelets bldOrdered By: Jennifer Phipps on 02-04-2023 Platelets (Bld) [#/Vol] 182 10*3/uL 150-450 [facility] Serum or plasma albumin you urement (mass/volume)Ordered By: Alfredo Phipps on 02-04-2023 Albumin [Mass/Vol] 2.9 g/dL 3.2-5.0 [facility] Serum or plasma calcium you urement (mass/volume)Ordered By: Alfredo Phipps on 02-04-2023 Calcium [Mass/Vol] 8.9 mg/dL 8.5-10.1 [facility] Serum or plasma creatinine m easurement (mass/volume)Ordered By: Alfredo Phipps on 02-04-2023 Creatinine [Mass/Vol] 1.71 mg/dL 0.70-1.30 [facility] Comment on above: The validity of the calculated GFR & GFRAA in patients over 70 years has not been determined. Clinical correlation is essential. Serum or plasma urea nitroge n measurement (mass/volume)Ordered By: Alfredo Phipps on 02-04-2023 Urea nitrogen [Mass/Vol] 25 mg/dL 7-18 [facility] Serum or plasma uric acid me asurement (mass/volume)Ordered By: Adam Ferraro on 01-25-2023 Urate [Mass/Vol] 5.8 mg/dL 3.5-7.2 [facility] Comment on above: The drugs N-Acetylcy steine and Metamizole may falsely depress this assay. Basophil percentageOrdered B y: Alfredo Phipps on 01-19-2023 Cholesterol [Mass/Vol] 160 mg/dL <200 [facility] Comment on above: <200 mg/dL Desirable 200-240 mg/dL Borderline >240 mg/dL High Risk Triglyceride [Mass/Vol] 322 mg/dL <199 [facility] Comment on above: The drugs N-Acetylcy steine and Metamizole may falsely depress this assay.Serum Triglycerides Reference Interval Normal <150 mg/dL Borderline high 150 - 199 mg/dL High 200 - 499 mg/dL Very High > or = 500 mg/dL Serum or plasma cholesterol in HDL measurement (mass/volume)Ordered By: Alfredo Phipps on 01-19-2023 Cholesterol in HDL [Mass/Vol] 38 mg/dL >40 [facility] Comment on above: The drugs N-Acetylcy steine and Metamizole may falsely depress this assay. Reference Range HDL <40 mg/dL Low HDL Cholesterol HDL >or= 60 mg/dL High HDL Cholesterol Serum or plasma cholesterol in VLDL measurement (mass/volume)Ordered By: Alfredo Phipps on 01-19-2023 Cholesterol in VLDL [Mass/Vol] 64 mg/dL 5-40 [facility] Serum or plasma low density lipoprotein (LDL) cholesterol measurement (mass/volume)Ordered By: Alfredo Phipps on 01-19-2023 Cholesterol in LDL [Mass/Vol] 58 mg/dL 0-130 [facility] Absolute lymphocyte countOrd ered By: Alfredo Phipps on 01-07-2023 Lymphocytes Auto (Unsp spec) [#/Vol] 2.02 10*3/uL 0.83-4.51 [facility] Basophil percentageOrdered B y: Alfredo Phipps on 01-07-2023 Basophil percentage 3.6 mg[facility]dL 2.5-4.[facility] Basophils/100 WBC (Bld) 1.0 % 0-1 [facility] Chloride [Moles/Vol] 109 mmol/L 98-107 [facility] Eosinophils/100 WBC (Bld) 2.8 % 0-5 [facility] Glucose [Mass/Vol] 236 mg/dL 74-106 [facility] Comment on above: Glucose result great er than or equal to 200 mg/dLsuggests DIABETES MELLITUS per A.D.A. criteria. Neutrophils (Bld) [#/Vol] 5.8 10*3/uL 2.0-7.7 [facility] Neutrophils/100 WBC (Bld) 62.2 % 47-70 [facility] Potassium [Moles/Vol] 4.1 mmol/L 3.5-5.1 [facility] Sodium [Moles/Vol] 141 mmol/L 136-145 [facility] WBC (Bld) [#/Vol] 9.3 10*3/uL 4.4-11.0 [facility] Blood erythrocytes count (nu mber/volume)Ordered By: Alfredo Phipps on 01-07-2023 RBC (Bld) [#/Vol] 4.67 10*6/uL 4.6-6.2 [facility] Blood hemoglobin measurement (mass/volume)Ordered By: Alfredo Phipps on 01-07-2023 Hemoglobin (Bld) [Mass/Vol] 13.5 g/dL 13.0-16.5 [facility] Blood lymphocytes/100 leukoc ytesOrdered By: Alfredo Phipps on 01-07-2023 Lymphocytes/100 WBC (Bld) 21.8 % 19-41 [facility] Blood monocytes/100 leukocyt esOrdered By: Alfredo Phipps on 01-07-2023 Monocytes/100 WBC (Bld) 11.6 % 0-10 [facility] Blood platelet mean volumeOr dered By: Alfredo Phipps on 01-07-2023 Platelet mean volume (Bld) [Entitic vol] 9.8 fL 6.2-12.0 [facility] Determination of erythrocyte mean corpuscular volume (MCV)Ordered By: Alfredo Phipps on 01-07-2023 MCV (RBC) [Entitic vol] 89.7 fL 80-94 [facility] Hematocrit Auto (Bld) [Volum e fraction]Ordered By: Alfredo Phipps on 01-07-2023 Hematocrit (Bld) [Volume fraction] 41.9 % 40-54 [facility] - Chemistry and C hemistry - challengeOrdered By: Alfredo Phipps on 01-07-2023 CO2 [Moles/Vol] 26.0 mmol/L 21.0-32.0 [facility] Urea nitrogen/Creatinine [Mass ratio] 13.4 mg/mg 10-20 [facility] - Hematology and Cell countsOrdered By: Alfredo Phipps on 01-07-2023 Erythrocyte distribution width (RBC) [Entitic vol] 42.5 fL 35.1-43.9 [facility] Erythrocyte distribution width (RBC) [Ratio] 13.1 % 11.6-14.6 [facility] Immature granulocytes/100 WBC (Bld) 0.600 % 0.0-0.9 [facility] Comment on above: IG% - Immature Granu locytes (promyelocytes, myelocytes and metamyelocytes) > 1% indicates that a LEFT SHIFT is Present. MCH (RBC) [Entitic mass] 28.9 pg 27.0-32.0 [facility] Nucleated RBC/100 WBC (Bld) [Ratio] 0 % 0-5 [facility] MCHC Auto (RBC) [Mass/Vol]Or dered By: Alfredo Phipps on 01-07-2023 MCHC (RBC) [Mass/Vol] 32.2 g/dL 32-36 [facility] No Panel InformationOrdered By: Alfredo Phipps on 01-07-2023 Estimated GFR (MDRD) Amer 48 mL/min >60 [facility] Comment on above: GFR Calc Estimated GFR (MDRD) Non-Af Amer 40 mL/min >60 [facility] [facility] Comment on above: Non- GFR Calc [place] Level 0.30 mmol/L 0.60-1.20 [facility] Platelets bldOrdered By: Jennifer Phipps on 01-07-2023 Platelets (Bld) [#/Vol] 203 10*3/uL 150-450 [facility] Serum or plasma albumin you urement (mass/volume)Ordered By: Alfredo Phipps on 01-07-2023 Albumin [Mass/Vol] 2.9 g/dL 3.2-5.0 [facility] Serum or plasma calcium you urement (mass/volume)Ordered By: Alfredo Phipps on 01-07-2023 Calcium [Mass/Vol] 9.0 mg/dL 8.5-10.1 [facility] Serum or plasma creatinine m easurement (mass/volume)Ordered By: Alfredo Phipps on 01-07-2023 Creatinine [Mass/Vol] 1.86 mg/dL 0.70-1.30 [facility] Comment on above: The validity of the calculated GFR & GFRAA in patients over 70 years has not been determined. Clinical correlation is essential. Serum or plasma urea nitroge n measurement (mass/volume)Ordered By: Alfredo Phipps on 01-07-2023 Urea nitrogen [Mass/Vol] 25 mg/dL 7-18 [facility] Serum or plasma uric acid me asurement (mass/volume)Ordered By: Adam Ferraro on 12-28-2022 Urate [Mass/Vol] 5.9 mg/dL 3.5-7.2 [facility] Comment on above: The drugs N-Acetylcy steine and Metamizole may falsely depress this assay. Urine creatinine measurement (mass/volume)Ordered By: Adam Ferraro on 12-15-2022 Creatinine (U) [Mass/Vol] 141.00 mg/dL NO RANGE EST. [facility] Urine protein measurement (m ass/volume)Ordered By: Adam Ferraro on 12-15-2022 Protein (U) [Mass/Vol] 29.9 mg/dL 0.0-11.8 [facility] Urine protein/creatinine mas s ratioOrdered By: Adam Ferraro on 12-15-2022 Protein/Creatinine (U) [Mass ratio] 212 mg/g CRE 0-200 [facility] Absolute lymphocyte countOrd ered By: Adam Ferraro on 12-10-2022 Lymphocytes Auto (Unsp spec) [#/Vol] 1.96 10*3/uL 0.83-4.51 [facility] Basophil percentageOrdered B y: Adam Ferraro on 12-10-2022 Basophil percentage 4.0 mg/dL 2.5-4.9 [facility] Basophils/100 WBC (Bld) 1.2 % 0-1 [facility] Chloride [Moles/Vol] 106 mmol/L 98-107 [facility] Eosinophils/100 WBC (Bld) 3.6 % 0-5 [facility] Glucose [Mass/Vol] 155 mg/dL 74-106 [facility] Comment on above: Fasting Glucose resu lt greater than or equal to 126 mg/dL suggests DIABETES MELLITUS per A.D.A. criteria. Neutrophils (Bld) [#/Vol] 4.9 10*3/uL 2.0-7.7 [facility] Neutrophils/100 WBC (Bld) 60.1 % 47-70 [facility] Potassium [Moles/Vol] 4.1 mmol/L 3.5-5.1 [facility] Sodium [Moles/Vol] 140 mmol/L 136-145 [facility] WBC (Bld) [#/Vol] 8.1 10*3/uL 4.4-11.0 [facility] Blood erythrocytes count (nu mber/volume)Ordered By: Adam Ferraro on 12-10-2022 RBC (Bld) [#/Vol] 4.96 10*6/uL 4.6-6.2 [facility] Blood hemoglobin measurement (mass/volume)Ordered By: Adam Ferraro on 12-10-2022 Hemoglobin (Bld) [Mass/Vol] 14.4 g/dL 13.0-16.5 [facility] Blood lymphocytes/100 leukoc ytesOrdered By: Adam Ferraro on 12-10-2022 Lymphocytes/100 WBC (Bld) 24.1 % 19-41 [facility] Blood monocytes/100 leukocyt esOrdered By: Adam Ferraro on 12-10-2022 Monocytes/100 WBC (Bld) 10.6 % 0-10 [facility] Blood platelet mean volumeOr dered By: Adam Ferraro on 12-10-2022 Platelet mean volume (Bld) [Entitic vol] 9.8 fL 6.2-12.0 [facility] Determination of erythrocyte mean corpuscular volume (MCV)Ordered By: Adam Ferraro on 12-10-2022 MCV (RBC) [Entitic vol] 89.5 fL 80-94 [facility] Hematocrit Auto (Bld) [Volum e fraction]Ordered By: Adam Ferraro on 12-10-2022 Hematocrit (Bld) [Volume fraction] 44.4 % 40-54 [facility] - Chemistry and C hemistry - challengeOrdered By: Adam Ferraro on 12-10-2022 CO2 [Moles/Vol] 26.0 mmol/L 21.0-32.0 [facility] Urea nitrogen/Creatinine [Mass ratio] 10.1 mg/mg 10-20 [facility] - Hematology and Cell countsOrdered By: Adam Ferraro on 12-10-2022 Erythrocyte distribution width (RBC) [Entitic vol] 42.6 fL 35.1-43.9 [facility] Erythrocyte distribution width (RBC) [Ratio] 13.0 % 11.6-14.6 [facility] Immature granulocytes/100 WBC (Bld) 0.400 % 0.0-0.9 [facility] Comment on above: IG% - Immature Granu locytes (promyelocytes, myelocytes and metamyelocytes) > 1% indicates that a LEFT SHIFT is Present. MCH (RBC) [Entitic mass] 29.0 pg 27.0-32.0 [facility] Nucleated RBC/100 WBC (Bld) [Ratio] 0 % 0-5 [facility] MCHC Auto (RBC) [Mass/Vol]Or dered By: Adam Ferraro on 12-10-2022 MCHC (RBC) [Mass/Vol] 32.4 g/dL 32-36 [facility] No Panel InformationOrdered By: Adam Ferraro on 12-10-2022 Estimated GFR (MDRD) Amer 50 mL/min >60 [facility] Comment on above: GFR Calc Estimated GFR (MDRD) Non-Af Amer 41 mL/min >60 [facility] Comment on above: Non- GFR Calc [place] Level 0.50 mmol/L 0.60-1.20 [facility] Platelets bldOrdered By: Benoit Ferraro on 12-10-2022 Platelets (Bld) [#/Vol] 213 10*3/uL 150-450 [facility] Serum or plasma albumin you urement (mass/volume)Ordered By: Adam Ferraro on 12-10-2022 Albumin [Mass/Vol] 2.8 g/dL 3.2-5.0 [facility] Serum or plasma calcium you urement (mass/volume)Ordered By: Adam Ferraro on 12-10-2022 Calcium [Mass/Vol] 8.8 mg/dL 8.5-10.1 [facility] Serum or plasma creatinine m easurement (mass/volume)Ordered By: Adam Ferraro on 12-10-2022 Creatinine [Mass/Vol] 1.79 mg/dL 0.70-1.30 [facility] Comment on above: The validity of the calculated GFR & GFRAA in patients over 70 years has not been determined. Clinical correlation is essential. Serum or plasma urea nitroge n measurement (mass/volume)Ordered By: Adam Ferraro on 12-10-2022 Urea nitrogen [Mass/Vol] 18 mg/dL 7-18 [facility] Urine creatinine measurement (mass/volume)Ordered By: Adam Ferraro on 11-17-2022 Creatinine (U) [Mass/Vol] 74.70 mg/dL NO RANGE EST. [facility] Urine protein measurement (m ass/volume)Ordered By: Adam Ferraro on 11-17-2022 Protein (U) [Mass/Vol] 16.5 mg/dL 0.0-11.8 [facility] Urine protein/creatinine mas s ratioOrdered By: Adam Ferraro on 11-17-2022 Protein/Creatinine (U) [Mass ratio] 221 mg/g CRE 0-200 [facility] Absolute lymphocyte countOrd ered By: Alfredo Phipps on 11-12-2022 Lymphocytes Auto (Unsp spec) [#/Vol] 2.11 10*3/uL 0.83-4.51 [facility] Basophil percentageOrdered B y: Alfredo Phipps on 11-12-2022 Basophil percentage 3.3 mg/dL 2.5-4.9 [facility] Basophils/100 WBC (Bld) 0.7 % 0-1 [facility] Chloride [Moles/Vol] 106 mmol/L 98-107 [facility] Eosinophils/100 WBC (Bld) 2.4 % 0-5 [facility] Glucose [Mass/Vol] 169 mg/dL 74-106 [facility] Comment on above: Fasting Glucose resu lt greater than or equal to 126 mg/dL suggests DIABETES MELLITUS per A.D.A. criteria. Neutrophils (Bld) [#/Vol] 6.1 10*3/uL 2.0-7.7 [facility] Neutrophils/100 WBC (Bld) 63.5 % 47-70 [facility] Potassium [Moles/Vol] 3.5 mmol/L 3.5-5.1 [facility] Sodium [Moles/Vol] 138 mmol/L 136-145 [facility] WBC (Bld) [#/Vol] 9.6 10*3/uL 4.4-11.0 [facility] Blood erythrocytes count (nu mber/volume)Ordered By: Alfredo Phipps on 11-12-2022 RBC (Bld) [#/Vol] 4.67 10*6/uL 4.6-6.2 [facility] Blood hemoglobin measurement (mass/volume)Ordered By: Alfredo Phipps on 11-12-2022 Hemoglobin (Bld) [Mass/Vol] 13.9 g/dL 13.0-16.5 [facility] Blood lymphocytes/100 leukoc ytesOrdered By: Alfredo Phipps on 11-12-2022 Lymphocytes/100 WBC (Bld) 21.9 % 19-41 [facility] Blood monocytes/100 leukocyt esOrdered By: Alfredo Phipps on 11-12-2022 Monocytes/100 WBC (Bld) 10.8 % 0-10 [facility] Blood platelet mean volumeOr dered By: Alfredo Phipps on 11-12-2022 Platelet mean volume (Bld) [Entitic vol] 9.8 fL 6.2-12.0 [facility] Determination of erythrocyte mean corpuscular volume (MCV)Ordered By: Alfredo Phipps on 11-12-2022 MCV (RBC) [Entitic vol] 89.1 fL 80-94 [facility] Hematocrit Auto (Bld) [Volum e fraction]Ordered By: Alfredo Phipps on 11-12-2022 Hematocrit (Bld) [Volume fraction] 41.6 % 40-54 [facility] - Chemistry and C hemistry - challengeOrdered By: Alfredo Phipps on 11-12-2022 CO2 [Moles/Vol] 25.0 mmol/L 21.0-32.0 [facility] Urea nitrogen/Creatinine [Mass ratio] 11.4 mg/mg 10-20 [facility] - Hematology and Cell countsOrdered By: Alfredo Phipps on 11-12-2022 Erythrocyte distribution width (RBC) [Entitic vol] 43.2 fL 35.1-43.9 [facility] Erythrocyte distribution width (RBC) [Ratio] 13.2 % 11.6-14.6 [facility] Immature granulocytes/100 WBC (Bld) 0.700 % 0.0-0.9 [facility] Comment on above: IG% - Immature Granu locytes (promyelocytes, myelocytes and metamyelocytes) > 1% indicates that a LEFT SHIFT is Present. MCH (RBC) [Entitic mass] 29.8 pg 27.0-32.0 [facility] Nucleated RBC/100 WBC (Bld) [Ratio] 0 % 0-5 [facility] MCHC Auto (RBC) [Mass/Vol]Or dered By: Alfredo Phipps on 11-12-2022 MCHC (RBC) [Mass/Vol] 33.4 g/dL 32-36 [facility] No Panel InformationOrdered By: Alfredo Phipps on 11-12-2022 Estimated GFR (MDRD) Amer 48 mL/min >60 [facility] Comment on above: GFR Calc Estimated GFR (MDRD) Non-Af Amer 40 mL/min >60 [facility] Comment on above: Non- GFR Calc [place] Level 0.40 mmol/L 0.60-1.20 [facility] Platelets bldOrdered By: Jennifer Phipps on 11-12-2022 Platelets (Bld) [#/Vol] 200 10*3/uL 150-450 [facility] Serum or plasma albumin you urement (mass/volume)Ordered By: Alfredo Phipps on 11-12-2022 Albumin [Mass/Vol] 2.9 g/dL 3.2-5.0 [facility] Serum or plasma calcium you urement (mass/volume)Ordered By: Alfredo Phipps on 11-12-2022 Calcium [Mass/Vol] 8.7 mg/dL 8.5-10.1 [facility] Serum or plasma creatinine m easurement (mass/volume)Ordered By: Alfredo Phipps on 11-12-2022 Creatinine [Mass/Vol] 1.85 mg/dL 0.70-1.30 [facility] Comment on above: The validity of the calculated GFR & GFRAA in patients over 70 years has not been determined. Clinical correlation is essential. Serum or plasma urea nitroge n measurement (mass/volume)Ordered By: Alfredo Phipps on 11-12-2022 Urea nitrogen [Mass/Vol] 21 mg/dL 7-18 [facility] Serum or plasma uric acid me asurement (mass/volume)Ordered By: Alfredo Phipps on 10-27-2022 Urate [Mass/Vol] 6.4 mg/dL 3.5-7.2 [facility] Comment on above: The drugs N-Acetylcy steine and Metamizole may falsely depress this assay. Absolute lymphocyte countOrd ered By: Alfredo Phipps on 10-15-2022 Lymphocytes Auto (Unsp spec) [#/Vol] 2.30 10*3/uL 0.83-4.51 [facility] Basophil percentageOrdered B y: Alfredo Phipps on 10-15-2022 Basophil percentage 4.2 mg/dL 2.5-4.9 [facility] Basophils/100 WBC (Bld) 1.0 % 0-1 [facility] Chloride [Moles/Vol] 108 mmol/L 98-107 [facility] Eosinophils/100 WBC (Bld) 3.2 % 0-5 [facility] Glucose [Mass/Vol] 168 mg/dL 74-106 [facility] Comment on above: Fasting Glucose resu lt greater than or equal to 126 mg/dL suggests DIABETES MELLITUS per A.D.A. criteria. Neutrophils (Bld) [#/Vol] 4.8 10*3/uL 2.0-7.7 [facility] Neutrophils/100 WBC (Bld) 58.3 % 47-70 [facility] Potassium [Moles/Vol] 4.1 mmol/L 3.5-5.1 [facility] Comment on above: Slight Hemolysis, Re sult may be falsely increased. Sodium [Moles/Vol] 140 mmol/L 136-145 [facility] WBC (Bld) [#/Vol] 8.3 10*3/uL 4.4-11.0 [facility] Blood erythrocytes count (nu mber/volume)Ordered By: Alfredo Phipps on 10-15-2022 RBC (Bld) [#/Vol] 4.81 10*6/uL 4.6-6.2 [facility] Blood hemoglobin measurement (mass/volume)Ordered By: Alfredo Phipps on 10-15-2022 Hemoglobin (Bld) [Mass/Vol] 13.9 g/dL 13.0-16.5 [facility] Blood lymphocytes/100 leukoc ytesOrdered By: Alfredo Phipps on 10-15-2022 Lymphocytes/100 WBC (Bld) 27.6 % 19-41 [facility] Blood monocytes/100 leukocyt esOrdered By: Alfredo Phipps on 10-15-2022 Monocytes/100 WBC (Bld) 9.1 % 0-10 [facility] Blood platelet mean volumeOr dered By: Alfredo Phipps on 10-15-2022 Platelet mean volume (Bld) [Entitic vol] 10.1 fL 6.2-12.0 [facility] Determination of erythrocyte mean corpuscular volume (MCV)Ordered By: Alfredo Phipps on 10-15-2022 MCV (RBC) [Entitic vol] 89.4 fL 80-94 [facility] Hematocrit Auto (Bld) [Volum e fraction]Ordered By: Alfredo Phipps on 10-15-2022 Hematocrit (Bld) [Volume fraction] 43.0 % 40-54 [facility] - Chemistry and C hemistry - challengeOrdered By: Alfredo Phipps on 10-15-2022 CO2 [Moles/Vol] 28.0 mmol/L 21.0-32.0 [facility] Urea nitrogen/Creatinine [Mass ratio] 11.3 mg/mg 10-20 [facility] - Hematology and Cell countsOrdered By: Alfredo Phipps on 10-15-2022 Erythrocyte distribution width (RBC) [Entitic vol] 42.9 fL 35.1-43.9 [facility] Erythrocyte distribution width (RBC) [Ratio] 13.2 % 11.6-14.6 [facility] Immature granulocytes/100 WBC (Bld) 0.800 % 0.0-0.9 [facility] Comment on above: IG% - Immature Granu locytes (promyelocytes, myelocytes and metamyelocytes) > 1% indicates that a LEFT SHIFT is Present. MCH (RBC) [Entitic mass] 28.9 pg 27.0-32.0 [facility] Nucleated RBC/100 WBC (Bld) [Ratio] 0 % 0-5 [facility] Auto (RBC) [Mass/Vol]Or dered By: Alfredo Phipps on 10-15-2022 MCHC (RBC) [Mass/Vol] 32.3 g/dL 32-36 [facility] No Panel InformationOrdered By: Alfredo Phipps on 10-15-2022 Estimated GFR (MDRD) Amer 46 mL/min >60 [facility] Comment on above: GFR Calc Estimated GFR (MDRD) Non-Af Amer 38 mL/min >60 [facility] Comment on above: Non- GFR Calc [place] Level 0.50 mmol/L 0.60-1.20 [facility] Platelets bldOrdered By: Jennifer Phipps on 10-15-2022 Platelets (Bld) [#/Vol] 200 10*3/uL 150-450 [facility] Serum or plasma albumin you urement (mass/volume)Ordered By: Alfredo Phipps on 10-15-2022 Albumin [Mass/Vol] 2.9 g/dL 3.2-5.0 [facility] Serum or plasma calcium you urement (mass/volume)Ordered By: Alfredo Phipps on 10-15-2022 Calcium [Mass/Vol] 9.1 mg/dL 8.5-10.1 [facility] Serum or plasma creatinine m easurement (mass/volume)Ordered By: Alfredo Phipps on 10-15-2022 Creatinine [Mass/Vol] 1.94 mg/dL 0.70-1.30 [facility] Comment on above: The validity of the calculated GFR & GFRAA in patients over 70 years has not been determined. Clinical correlation is essential. Serum or plasma urea nitroge n measurement (mass/volume)Ordered By: Alfredo Phipps on 10-15-2022 Urea nitrogen [Mass/Vol] 22 mg/dL 7-18 [facility] Serum or plasma uric acid me asurement (mass/volume)Ordered By: Alfredo Phipps on 09-27-2022 Urate [Mass/Vol] 7.0 mg/dL 3.5-7.2 [facility] Comment on above: The drugs N-Acetylcy steine and Metamizole may falsely depress this assay. Absolute lymphocyte countOrd ered By: Adam Ferraro on 09-17-2022 Lymphocytes Auto (Unsp spec) [#/Vol] 2.69 10*3/uL 0.83-4.51 [facility] Basophil percentageOrdered B y: Adam Ferraro on 09-17-2022 Basophil percentage 3.8 mg/dL 2.5-4.9 [facility] Basophils/100 WBC (Bld) 0.9 % 0-1 [facility] Chloride [Moles/Vol] 105 mmol/L 98-107 [facility] Eosinophils/100 WBC (Bld) 3.2 % 0-5 [facility] Glucose [Mass/Vol] 141 mg/dL 74-106 [facility] Comment on above: Fasting Glucose resu lt greater than or equal to 126 mg/dL suggests DIABETES MELLITUS per A.D.A. criteria. Neutrophils (Bld) [#/Vol] 5.1 10*3/uL 2.0-7.7 [facility] Neutrophils/100 WBC (Bld) 56.1 % 47-70 [facility] Potassium [Moles/Vol] 3.8 mmol/L 3.5-5.1 [facility] Sodium [Moles/Vol] 139 mmol/L 136-145 [facility] WBC (Bld) [#/Vol] 9.0 10*3/uL 4.4-11.0 [facility] Blood erythrocytes count (nu mber/volume)Ordered By: Adam Ferraro on 09-17-2022 RBC (Bld) [#/Vol] 4.99 10*6/uL 4.6-6.2 [facility] Blood hemoglobin measurement (mass/volume)Ordered By: Adam Ferraro on 09-17-2022 Hemoglobin (Bld) [Mass/Vol] 14.8 g/dL 13.0-16.5 [facility] Blood lymphocytes/100 leukoc ytesOrdered By: Adam Ferraro on 09-17-2022 Lymphocytes/100 WBC (Bld) 29.8 % 19-41 [facility] Blood monocytes/100 leukocyt esOrdered By: Adam Ferraro on 09-17-2022 Monocytes/100 WBC (Bld) 9.4 % 0-10 [facility] Blood platelet mean volumeOr dered By: Adam Ferraro on 09-17-2022 Platelet mean volume (Bld) [Entitic vol] 10.2 fL 6.2-12.0 [facility] Determination of erythrocyte mean corpuscular volume (MCV)Ordered By: Adam Ferraro on 09-17-2022 MCV (RBC) [Entitic vol] 88.6 fL 80-94 [facility] Hematocrit Auto (Bld) [Volum e fraction]Ordered By: Adam Ferraro on 09-17-2022 Hematocrit (Bld) [Volume fraction] 44.2 % 40-54 [facility] - Chemistry and C hemistry - challengeOrdered By: Adam Ferraro on 09-17-2022 CO2 [Moles/Vol] 26.0 mmol/L 21.0-32.0 [facility] Urea nitrogen/Creatinine [Mass ratio] 11.4 mg/mg 10-20 [facility] - Hematology and Cell countsOrdered By: Adam Ferraro on 09-17-2022 Erythrocyte distribution width (RBC) [Entitic vol] 42.8 fL 35.1-43.9 [facility] Erythrocyte distribution width (RBC) [Ratio] 13.2 % 11.6-14.6 [facility] Immature granulocytes/100 WBC (Bld) 0.600 % 0.0-0.9 [facility] Comment on above: IG% - Immature Granu locytes (promyelocytes, myelocytes and metamyelocytes) > 1% indicates that a LEFT SHIFT is Present. MCH (RBC) [Entitic mass] 29.7 pg 27.0-32.0 [facility] Nucleated RBC/100 WBC (Bld) [Ratio] 0 % 0-5 [facility] MCHC Auto (RBC) [Mass/Vol]Or dered By: Adam Ferraro on 09-17-2022 MCHC (RBC) [Mass/Vol] 33.5 g/dL 32-36 [facility] No Panel InformationOrdered By: Adam Ferraro on 09-17-2022 [place] Level 0.50 mmol/L 0.60-1.20 [facility] Estimated GFR (MDRD) Amer 51 mL/min >60 [facility] Comment on above: GFR Calc Estimated GFR (MDRD) Non-Af Amer 42 mL/min >60 [facility] Comment on above: Non- GFR Calc Platelets bldOrdered By: Benoit Ferraro on 09-17-2022 Platelets (Bld) [#/Vol] 178 10*3/uL 150-450 [facility] Serum or plasma albumin you urement (mass/volume)Ordered By: Adam Ferraro on 09-17-2022 Albumin [Mass/Vol] 3.0 g/dL 3.2-5.0 [facility] Serum or plasma calcium you urement (mass/volume)Ordered By: Adam Ferraro on 09-17-2022 Calcium [Mass/Vol] 9.0 mg/dL 8.5-10.1 [facility] Serum or plasma creatinine m easurement (mass/volume)Ordered By: Adam Ferraro on 09-17-2022 Creatinine [Mass/Vol] 1.76 mg/dL 0.70-1.30 [facility] Comment on above: The validity of the calculated GFR & GFRAA in patients over 70 years has not been determined. Clinical correlation is essential. Serum or plasma urea nitroge n measurement (mass/volume)Ordered By: Adam Ferraro on 09-17-2022 Urea nitrogen [Mass/Vol] 20 mg/dL 7-18 [facility] Urine creatinine measurement (mass/volume)Ordered By: Adam Ferraro on 09-17-2022 Creatinine (U) [Mass/Vol] 128.00 mg/dL NO RANGE EST. [facility] Urine protein measurement (m ass/volume)Ordered By: Adam Ferraro on 09-17-2022 Protein (U) [Mass/Vol] 20.9 mg/dL 0.0-11.8 [facility] Urine protein/creatinine mas s ratioOrdered By: Adam Ferraro on 09-17-2022 Protein/Creatinine (U) [Mass ratio] 163 mg/g CRE 0-200 [facility] Serum or plasma uric acid me asurement (mass/volume)Ordered By: Adam Ferraro on 08-27-2022 Urate [Mass/Vol] 6.4 mg/dL 3.5-7.2 [facility] Comment on above: The drugs N-Acetylcy steine and Metamizole may falsely depress this assay. No Panel InformationOrdered By: Adam Ferraro on 08-23-2022 [place] Level 0.40 mmol/L 0.60-1.20 [facility] Culture, urineOrdered By: Chan Fiore on 08-15-2022 Bacteria identified Cx Nom (U) Streptococcus mitis [facility] Absolute lymphocyte countOrd ered By: Alfredo Phipps on 08-12-2022 Lymphocytes Auto (Unsp spec) [#/Vol] 2.09 10*3/uL 0.83-4.51 [facility] Basophil percentageOrdered B y: Alfredo Phipps on 08-12-2022 Basophil percentage 3.6 mg/dL 2.5-4.9 [facility] Basophils/100 WBC (Bld) 0.9 % 0-1 [facility] Chloride [Moles/Vol] 107 mmol/L 98-107 [facility] Eosinophils/100 WBC (Bld) 2.8 % 0-5 [facility] Glucose [Mass/Vol] 151 mg/dL 74-106 [facility] Comment on above: Fasting Glucose resu lt greater than or equal to 126 mg/dL suggests DIABETES MELLITUS per A.D.A. criteria. Neutrophils (Bld) [#/Vol] 5.5 10*3/uL 2.0-7.7 [facility] Neutrophils/100 WBC (Bld) 63.4 % 47-70 [facility] Potassium [Moles/Vol] 4.0 mmol/L 3.5-5.1 [facility] Sodium [Moles/Vol] 140 mmol/L 136-145 [facility] WBC (Bld) [#/Vol] 8.7 10*3/uL 4.4-11.0 [facility] Basophil percentage 10-25 SEEN /hpf 0-5 [facility] Bilirubin Test strip Ql (U)O rdered By: Alfredo Phipps on 08-12-2022 Bilirubin Ql (U) Negative Negative [facility] Blood erythrocytes count (nu mber/volume)Ordered By: Alfredo Phipps on 08-12-2022 RBC (Bld) [#/Vol] 4.92 10*6/uL 4.6-6.2 [facility] Blood hemoglobin measurement (mass/volume)Ordered By: Alfredo Phipps on 08-12-2022 Hemoglobin (Bld) [Mass/Vol] 14.5 g/dL 13.0-16.5 [facility] Blood lymphocytes/100 leukoc ytesOrdered By: Alfredo Phipps on 08-12-2022 Lymphocytes/100 WBC (Bld) 24.1 % 19-41 [facility] Blood monocytes/100 leukocyt esOrdered By: Alfredo Phipps on 08-12-2022 Monocytes/100 WBC (Bld) 8.3 % 0-10 [facility] Blood platelet mean volumeOr dered By: Alfredo Phipps on 08-12-2022 Platelet mean volume (Bld) [Entitic vol] 9.8 fL 6.2-12.0 [facility] Determination of erythrocyte mean corpuscular volume (MCV)Ordered By: Alfredo Phipps on 08-12-2022 MCV (RBC) [Entitic vol] 91.1 fL 80-94 [facility] Hematocrit Auto (Bld) [Volum e fraction]Ordered By: Alfredo Phipps on 08-12-2022 Hematocrit (Bld) [Volume fraction] 44.8 % 40-54 [facility] Ketones Test strip Ql (U)Ord ered By: Alfredo Phipps on 08-12-2022 Ketones Ql (U) Negative Negative [facility] - Chemistry and C hemistry - challengeOrdered By: Alfredo Phipps on 08-12-2022 CO2 [Moles/Vol] 25.0 mmol/L 21.0-32.0 [facility] Urea nitrogen/Creatinine [Mass ratio] 14.9 mg/mg 10-20 [facility] - Hematology and Cell countsOrdered By: Alfredo Phipps on 08-12-2022 Erythrocyte distribution width (RBC) [Entitic vol] 43.3 fL 35.1-43.9 [facility] Erythrocyte distribution width (RBC) [Ratio] 12.9 % 11.6-14.6 [facility] Immature granulocytes/100 WBC (Bld) 0.500 % 0.0-0.9 [facility] Comment on above: IG% - Immature Granu locytes (promyelocytes, myelocytes and metamyelocytes) > 1% indicates that a LEFT SHIFT is Present. MCH (RBC) [Entitic mass] 29.5 pg 27.0-32.0 [facility] Nucleated RBC/100 WBC (Bld) [Ratio] 0 % 0-5 [facility] MCHC Auto (RBC) [Mass/Vol]Or dered By: Alfredo Phipps on 08-12-2022 MCHC (RBC) [Mass/Vol] 32.4 g/dL 32-36 [facility] Mucus LM Ql (Urine sed)Order ed By: Alfredo Phipps on 08-12-2022 Mucus Ql (Urine sed) Not Reportable [facility] Nitrite Test strip Ql (U)Ord ered By: Alfredo Phipps on 08-12-2022 Nitrite Ql (U) Negative Negative [facility] No Panel InformationOrdered By: Alfredo Phipps on 08-12-2022 Estimated GFR (MDRD) Amer 54 mL/min >60 [facility] Comment on above: GFR Calc Estimated GFR (MDRD) Non-Af Amer 45 mL/min >60 [facility] Comment on above: Non- GFR Calc Platelets bldOrdered By: Pet shonda Phipps on 08-12-2022 Platelets (Bld) [#/Vol] 238 10*3/uL 150-450 [facility] Protein Test strip Ql (U)Ord ered By: Alfredo Phipps on 08-12-2022 Protein Ql (U) 15 mg/dl Negative [facility] Serum or plasma albumin you urement (mass/volume)Ordered By: Alfredo Phipps on 08-12-2022 Albumin [Mass/Vol] 2.9 g/dL 3.2-5.0 [facility] Serum or plasma calcium you urement (mass/volume)Ordered By: Alfredo Phipps on 08-12-2022 Calcium [Mass/Vol] 9.2 mg/dL 8.5-10.1 [facility] Serum or plasma creatinine m easurement (mass/volume)Ordered By: Alfredo Phipps on 08-12-2022 Creatinine [Mass/Vol] 1.68 mg/dL 0.70-1.30 [facility] Comment on above: The validity of the calculated GFR & GFRAA in patients over 70 years has not been determined. Clinical correlation is essential. Serum or plasma urea nitroge n measurement (mass/volume)Ordered By: Alfredo Phipps on 08-12-2022 Urea nitrogen [Mass/Vol] 25 mg/dL 7-18 [facility] Squamous epithelial cells de tection in urine sediment by light microscopyOrdered By: Alfredo Phipps on 08-12-2022 Epithelial cells.squamous LM Ql (Urine sed) 0-5 SEEN /hpf 0-5 [facility] Urine blood detectionOrdered By: Alfredo Phipps on 08-12-2022 RBC Ql (U) Negative Negative [facility] RBC Ql (U) 0 SEEN /hpf 0-5 [facility] Urine clarityOrdered By: Jennifer Phipps on 08-12-2022 Clarity (U) Clear Clear [facility] Urine color determinationOrd ered By: Alfredo Phipps on 08-12-2022 Color (U) Yellow Yellow [facility] Urine creatinine measurement (mass/volume)Ordered By: Alfredo Phipps on 08-12-2022 Creatinine (U) [Mass/Vol] 102.00 mg/dL NO RANGE EST. [facility] Urine glucose detectionOrder ed By: Alfredo Phipps on 08-12-2022 Glucose Ql (U) Normal mg/dl Normal [facility] Urine leukocyte esterase det ection by dipstickOrdered By: Alfredo Phipps on 08-12-2022 Leukocyte esterase Test strip Ql (U) 500 /ul Negative [facility] Urine pHOrdered By: Alfredo saha on 08-12-2022 pH (U) 6.0 [pH] 5.0 - 8.0 [facility] Urine protein measurement (m ass/volume)Ordered By: Alfredo Phipps on 08-12-2022 Protein (U) [Mass/Vol] 19.9 mg/dL 0.0-11.8 [facility] Urine protein/creatinine mas s ratioOrdered By: Alfredo Phipps on 08-12-2022 Protein/Creatinine (U) [Mass ratio] 195 mg/g CRE 0-200 [facility] Urine sediment bacteria coun t by microscopy (number/high power field)Ordered By: Alfredo Phipps on 08-12-2022 Bacteria LM.HPF (Urine sed) [#/Area] RARE /hpf None Seen [facility] Urine specific gravity measu rementOrdered By: Alfredo Phipps on 08-12-2022 Specific gravity (U) [Rel density] 1.015 1.002-1.030 [facility] Urobilinogen Auto test strip Ql (U)Ordered By: Alfredo Phipps on 08-12-2022 Urobilinogen Ql (U) Normal mg/dl Normal [facility] No Panel Informationon 07-28 [place] Level 0.60 mmol/L 0.60-1.20 [facility] Work Phone: Serum or plasma uric acid me asurement (mass/volume)on 07-28-2022 Urate [Mass/Vol] 6.3 mg/dL 3.5-7.2 [facility] Work Phone: Comment on above: The drugs N-Acetylcy steine and Metamizole may falsely depress this assay. URINALYSIS, REFLEX MICROSCOP ICon 07-27-2022 Bilirubin Ql (U) Negative Negative [facility] Clarity (Unsp spec) Clear Clear [facility] Color (U) Colorless Yellow [facility] Glucose Test strip (U) [Mass/Vol] Negative Negative [facility] Hemoglobin Ql (U) Negative Negative [facility] Ketones Ql (U) Negative Negative [facility] Leukocyte esterase Test strip Ql (U) Negative Negative [facility] Nitrite Ql (U) Negative Negative [facility] pH (U) 6.5 [pH] 5.0 - 8.0 [facility] Protein (U) [Mass/Vol] Negative Negative [facility] Specific gravity (U) [Rel density] 1.009 1.005 - 1.030 [facility] Urobilinogen Ql (U) Negative Negative [facility] Absolute lymphocyte counton 07-15-2022 Lymphocytes Auto (Unsp spec) [#/Vol] 1.93 10*3/uL 0.83-4.51 [facility] Work Phone: Basophil percentageon 2021 Basophil percentage 3.9 mg/dL 2.5-4.9 [facility] Work Phone: Basophils/100 WBC (Bld) 1.3 % 0-1 [facility] Work Phone: Chloride [Moles/Vol] 107 mmol/L 98-107 [facility] Work Phone: Eosinophils/100 WBC (Bld) 1.7 % 0-5 [facility] Work Phone: Glucose [Mass/Vol] 126 mg/dL 74-106 [facility] Work Phone: Comment on above: Fasting Glucose resu lt greater than or equal to 126 mg/dL suggests DIABETES MELLITUS per A.D.A. criteria. Neutrophils (Bld) [#/Vol] 6.1 10*3/uL 2.0-7.7 [facility] Work Phone: Neutrophils/100 WBC (Bld) 66.5 % 47-70 [facility] Work Phone: Potassium [Moles/Vol] 4.4 mmol/L 3.5-5.1 [facility] Work Phone: Sodium [Moles/Vol] 139 mmol/L 136-145 [facility] Work Phone: [phone] WBC (Bld) [#/Vol] 9.2 10*3/uL 4.4-11.0 [facility] Work Phone: Bilirubin Test strip Ql (U)o n 07-15-2022 Bilirubin Ql (U) Negative Negative [facility] Work Phone: Blood erythrocytes count (nu mber/volume)on 07-15-2022 RBC (Bld) [#/Vol] 5.01 10*6/uL 4.6-6.2 [facility] Work Phone: Blood hemoglobin measurement (mass/volume)on 07-15-2022 Hemoglobin (Bld) [Mass/Vol] 14.8 g/dL 13.0-16.5 [facility] Work Phone: Blood lymphocytes/100 leukoc yteson 07-15-2022 Lymphocytes/100 WBC (Bld) 20.9 % 19-41 [facility] Work Phone: [phone] Blood monocytes/100 leukocyt eson 07-15-2022 Monocytes/100 WBC (Bld) 8.9 % 0-10 [facility] Work Phone: Blood platelet mean volumeon 07-15-2022 Platelet mean volume (Bld) [Entitic vol] 9.7 fL 6.2-12.0 [facility] Work Phone: Determination of erythrocyte mean corpuscular volume (MCV)on 07-15-2022 MCV (RBC) [Entitic vol] 91.8 fL 80-94 [facility] Work Phone: Hematocrit Auto (Bld) [Volum e fraction]on 07-15-2022 Hematocrit (Bld) [Volume fraction] 46.0 % 40-54 [facility] Work Phone: Ketones Test strip Ql (U)on 07-15-2022 Ketones Ql (U) Negative Negative [facility] Work Phone: Laboratory - Chemistry and C hemistry - challengeon 07-15-2022 CO2 [Moles/Vol] 25.0 mmol/L 21.0-32.0 [facility] Work Phone: Urea nitrogen/Creatinine [Mass ratio] 14.9 mg/mg 10-20 [facility] Work Phone: Laboratory - Hematology and Cell countson 07-15-2022 Erythrocyte distribution width (RBC) [Entitic vol] 44.0 fL 35.1-43.9 [facility] Work Phone: Erythrocyte distribution width (RBC) [Ratio] 13.1 % 11.6-14.6 [facility] Work Phone: Immature granulocytes/100 WBC (Bld) 0.700 % 0.0-0.9 [facility] Work Phone: Comment on above: IG% - Immature Granu locytes (promyelocytes, myelocytes and metamyelocytes) > 1% indicates that a LEFT SHIFT is Present. MCH (RBC) [Entitic mass] 29.5 pg 27.0-32.0 [facility] Work Phone: Nucleated RBC/100 WBC (Bld) [Ratio] 0 % 0-5 [facility] Work Phone: MCHC Auto (RBC) [Mass/Vol]on 07-15-2022 MCHC (RBC) [Mass/Vol] 32.2 g/dL 32-36 [facility] Work Phone: Nitrite Test strip Ql (U)on 07-15-2022 Nitrite Ql (U) Negative Negative [facility] Work Phone: No Panel Informationon 07-15 Estimated GFR (MDRD) Amer 54 mL/min >60 [facility] Work Phone: Comment on above: GFR Calc Estimated GFR (MDRD) Non-Af Amer 45 mL/min >60 [facility] Work Phone: Comment on above: Non- GFR Calc Platelets bldon 07-15-2022 Platelets (Bld) [#/Vol] 231 10*3/uL 150-450 [facility] Work Phone: Protein Test strip Ql (U)on 07-15-2022 Protein Ql (U) 30 mg/dl Negative [facility] Work Phone: Serum or plasma albumin you urement (mass/volume)on 07-15-2022 Albumin [Mass/Vol] 3.1 g/dL 3.2-5.0 [facility] Work Phone: Serum or plasma calcium you urement (mass/volume)on 07-15-2022 Calcium [Mass/Vol] 8.6 mg/dL 8.5-10.1 [facility] Work Phone: Serum or plasma creatinine m easurement (mass/volume)on 07-15-2022 Creatinine [Mass/Vol] 1.68 mg/dL 0.70-1.30 [facility] Work Phone: Comment on above: The validity of the calculated GFR & GFRAA in patients over 70 years has not been determined. Clinical correlation is essential. Serum or plasma urea nitroge n measurement (mass/volume)on 07-15-2022 Urea nitrogen [Mass/Vol] 25 mg/dL 7-18 [facility] Work Phone: Urine blood detectionon 09-0 RBC Ql (U) Negative Negative [facility] Work Phone: Urine clarityon 07-15-2022 Clarity (U) Sl. Cloudy Clear [facility] Work Phone: Urine color determinationon 07-15-2022 Color (U) Yellow Yellow [facility] Work Phone: Urine creatinine measurement (mass/volume)on 07-15-2022 Creatinine (U) [Mass/Vol] 114.00 mg/dL NO RANGE EST. [facility] Work Phone: Urine glucose detectionon Glucose Ql (U) Normal mg/dl Normal [facility] Work Phone: Urine leukocyte esterase det ection by dipstickon 07-15-2022 Leukocyte esterase Test strip Ql (U) 100 /ul Negative [facility] Work Phone: Urine pHon 07-15-2022 pH (U) 6.0 [pH] 5.0 - 8.0 [facility] Work Phone: Urine protein measurement (m ass/volume)on 07-15-2022 Protein (U) [Mass/Vol] 26.5 mg/dL 0.0-11.8 [facility] Work Phone: Urine protein/creatinine mas s ratioon 07-15-2022 Protein/Creatinine (U) [Mass ratio] 232 mg/g CRE 0-200 [facility] Work Phone: Urine specific gravity measu rementon 07-15-2022 Specific gravity (U) [Rel density] 1.015 1.002-1.030 [facility] Work Phone: Urobilinogen Auto test strip Ql (U)on 07-15-2022 Urobilinogen Ql (U) Normal mg/dl Normal [facility] Work Phone: Basophil percentageon 2021 Cholesterol [Mass/Vol] 149 mg/dL <200 [facility] Work Phone: Comment on above: <200 mg/dL Desirable 200-240 mg/dL Borderline >240 mg/dL High Risk Triglyceride [Mass/Vol] 379 mg/dL <199 [facility] Work Phone: Comment on above: The drugs N-Acetylcy steine and Metamizole may falsely depress this assay.Serum Triglycerides Reference Interval Normal <150 mg/dL Borderline high 150 - 199 mg/dL High 200 - 499 mg/dL Very High > or = 500 mg/dL No Panel Informationon 06-28 [place] Level 0.40 mmol/L 0.60-1.20 [facility] Work Phone: Serum or plasma cholesterol in HDL measurement (mass/volume)on 06-28-2022 Cholesterol in HDL [Mass/Vol] 34 mg/dL >40 [facility] Work Phone: Comment on above: The drugs N-Acetylcy steine and Metamizole may falsely depress this assay. Reference Range HDL <40 mg/dL Low HDL Cholesterol HDL >or= 60 mg/dL High HDL Cholesterol Serum or plasma cholesterol in VLDL measurement (mass/volume)on 06-28-2022 Cholesterol in VLDL [Mass/Vol] 76 mg/dL 5-40 [facility] Work Phone: Serum or plasma low density lipoprotein (LDL) cholesterol measurement (mass/volume)on 06-28-2022 Cholesterol in LDL [Mass/Vol] 39 mg/dL 0-130 [facility] Work Phone: Serum or plasma uric acid me asurement (mass/volume)on 06-28-2022 Urate [Mass/Vol] 5.9 mg/dL 3.5-7.2 [facility] Work Phone: Comment on above: The drugs N-Acetylcy steine and Metamizole may falsely depress this assay. Absolute lymphocyte counton 06-17-2022 Lymphocytes Auto (Unsp spec) [#/Vol] 2.02 10*3/uL 0.83-4.51 [facility] Work Phone: Basophil percentageon 2021 Basophil percentage 0-5 SEEN /hpf 0-5 [facility] Work Phone: Basophil percentage 3.8 mg/dL [facility].5-4.9 [facility] Work Phone: Basophils/100 WBC (Bld) 0.8 % 0-1 [facility] Work Phone: Chloride [Moles/Vol] 108 mmol/L 98-[address] [facility] Work Phone: Eosinophils/100 WBC (Bld) 2.9 % 0-5 [facility] Work Phone: Glucose [Mass/Vol] 133 mg/dL 74-106 [facility] Work Phone: Comment on above: Fasting Glucose resu lt greater than or equal to 126 mg/dL suggests DIABETES MELLITUS per A.D.A. criteria. Neutrophils (Bld) [#/Vol] 5.3 10*3/uL 2.0-7.7 [facility] Work Phone: Neutrophils/100 WBC (Bld) 61.6 % 47-70 [facility] Work Phone: Potassium [Moles/Vol] 3.8 mmol/L 3.5-5.1 [place] [facility] Work Phone: Sodium [Moles/Vol] 140 mmol/L 136-145 [facility] Work Phone: WBC (Bld) [#/Vol] 8.6 10*3/uL 4.4-11.0 [facility] Work Phone: Bilirubin Test strip Ql (U)o n 06-17-2022 Bilirubin Ql (U) Negative Negative [facility] Work Phone: Blood erythrocytes count (nu mber/volume)on 06-17-2022 RBC (Bld) [#/Vol] 4.46 10*6/uL 4.6-6.[address] [facility] [facility] Work Phone: Blood hemoglobin measurement (mass/volume)on 06-17-2022 Hemoglobin (Bld) [Mass/Vol] 13.4 g/dL 13.0-16.5 [facility] Work Phone: Blood lymphocytes/100 leukoc yteson 06-17-2022 Lymphocytes/100 WBC (Bld) 23.5 % 19-41 [facility] Work Phone: Blood monocytes/100 leukocyt eson 06-17-2022 Monocytes/100 WBC (Bld) 10.0 % 0-10 [facility] Work Phone: Blood platelet mean volumeon 06-17-2022 Platelet mean volume (Bld) [Entitic vol] 9.6 fL 6.2-12.0 [facility] Work Phone: Determination of erythrocyte mean corpuscular volume (MCV)on 06-17-2022 MCV (RBC) [Entitic vol] 91.3 fL 80-94 [facility] Work Phone: Hematocrit Auto (Bld) [Volum e fraction]on 06-17-2022 Hematocrit (Bld) [Volume fraction] 40.7 % 40-54 [facility] Work Phone: Ketones Test strip Ql (U)on 06-17-2022 Ketones Ql (U) Negative Negative [facility] Work Phone: Laboratory - Chemistry and C hemistry - challengeon 06-17-2022 CO2 [Moles/Vol] 25.0 mmol/L 21.0-32.0 [facility] Work Phone: Urea nitrogen/Creatinine [Mass ratio] 12.6 mg/mg 10-20 [facility] Work Phone: Laboratory - Hematology and Cell countson 06-17-2022 Erythrocyte distribution width (RBC) [Entitic vol] 45.5 fL 35.1-43.9 [facility] Work Phone: Erythrocyte distribution width (RBC) [Ratio] 13.4 % 11.6-14.6 [facility] Work Phone: Immature granulocytes/100 WBC (Bld) 1.200 % 0.0-0.9 [facility] Work Phone: Comment on above: IG% - Immature Granu locytes (promyelocytes, myelocytes and metamyelocytes) > 1% indicates that a LEFT SHIFT is Present. MCH (RBC) [Entitic mass] 30.0 pg 27.0-32.0 [facility] Work Phone: Nucleated RBC/100 WBC (Bld) [Ratio] 0 % 0-5 [facility] Work Phone: MCHC Auto (RBC) [Mass/Vol]on 06-17-2022 MCHC (RBC) [Mass/Vol] 32.9 g/dL 32-36 [facility] Work Phone: Mucus LM Ql (Urine sed)on Mucus Ql (Urine sed) 0 SEEN /hpf [facility] Work Phone: Nitrite Test strip Ql (U)on 06-17-2022 Nitrite Ql (U) Negative Negative [facility] Work Phone: No Panel Informationon 06-17 Estimated GFR (MDRD) Amer 58 mL/min >60 [facility] Work Phone: Comment on above: GFR Calc Estimated GFR (MDRD) Non-Af Amer 48 mL/min >60 [facility] Work Phone: Comment on above: Non- GFR Calc Platelets bldon 06-17-2022 Platelets (Bld) [#/Vol] 178 10*3/uL 150-450 [facility] Work Phone: Protein Test strip Ql (U)on 06-17-2022 Protein Ql (U) 15 mg/dl Negative [facility] Work Phone: Serum or plasma albumin you urement (mass/volume)on 06-17-2022 Albumin [Mass/Vol] 2.8 g/dL 3.2-5.0 [facility] Work Phone: Serum or plasma calcium you urement (mass/volume)on 06-17-2022 Calcium [Mass/Vol] 8.6 mg/dL 8.5-10.1 [facility] Work Phone: Serum or plasma creatinine m easurement (mass/volume)on 06-17-2022 Creatinine [Mass/Vol] 1.59 mg/dL 0.70-1.30 [facility] Work Phone: Comment on above: The validity of the calculated GFR & GFRAA in patients over 70 years has not been determined. Clinical correlation is essential. Serum or plasma urea nitroge n measurement (mass/volume)on 06-17-2022 Urea nitrogen [Mass/Vol] 20 mg/dL 7-18 [facility] Work Phone: Squamous epithelial cells de tection in urine sediment by light microscopyon 06-17-2022 Epithelial cells.squamous LM Ql (Urine sed) 0-5 SEEN /hpf 0-5 [facility] Work Phone: Urine blood detectionon RBC Ql (U) Negative Negative [facility] Work Phone: RBC Ql (U) 0 SEEN /hpf 0-5 [facility] Work Phone: Urine clarityon 06-17-2022 Clarity (U) Clear Clear [facility] Work Phone: Urine color determinationon 06-17-2022 Color (U) Yellow Yellow [facility] Work Phone: Urine creatinine measurement (mass/volume)on 06-17-2022 Creatinine (U) [Mass/Vol] 118.00 mg/dL NO RANGE EST. [facility] Work Phone: Urine glucose detectionon Glucose Ql (U) Normal mg/dl Normal [facility] Work Phone: Urine leukocyte esterase det ection by dipstickon 06-17-2022 Leukocyte esterase Test strip Ql (U) 100 /ul Negative [facility] Work Phone: Urine pHon 06-17-2022 pH (U) 6.0 [pH] 5.0 - 8.0 [facility] Work Phone: Urine protein measurement (m ass/volume)on 06-17-2022 Protein (U) [Mass/Vol] 22.0 mg/dL 0.0-11.8 [facility] Work Phone: Urine protein/creatinine mas s ratioon 06-17-2022 Protein/Creatinine (U) [Mass ratio] 186 mg/g CRE 0-200 [facility] Work Phone: Urine sediment bacteria coun t by microscopy (number/high power field)on 06-17-2022 Bacteria LM.HPF (Urine sed) [#/Area] 0 /[HPF] None Seen [facility] Work Phone: Urine specific gravity measu rementon 06-17-2022 Specific gravity (U) [Rel density] 1.015 1.002-1.030 [facility] Work Phone: Urobilinogen Auto test strip Ql (U)on 06-17-2022 Urobilinogen Ql (U) Normal mg/dl [facility] Work [facility]: No Panel Informationon 05-27 [place] Level 0.40 mmol/L 0.60-1.20 [facility] Work Phone: Serum or plasma uric acid me asurement (mass/volume)on 05-27-2022 Urate [Mass/Vol] 6.1 mg/dL 3.5-7.2 [facility] Work Phone: Comment on above: The drugs N-Acetylcy steine and Metamizole may falsely depress this assay. Absolute lymphocyte counton 05-20-2022 Lymphocytes Auto (Unsp spec) [#/Vol] 2.07 10*3/uL 0.83-4.51 [facility] Work Phone: Basophil percentageon 2021 Basophil percentage 3.2 mg/dL 2.5-4.[address] [facility] Work Phone: Basophils/100 WBC (Bld) 0.7 % 0-1 [facility] Work Phone: Chloride [Moles/Vol] 108 mmol/L 98-107 [facility] Work Phone: [phone] Eosinophils/100 WBC (Bld) 2.5 % 0-5 [facility] Work Phone: Glucose [Mass/Vol] 149 mg/dL 74-106 [facility] Work Phone: Comment on above: Fasting Glucose resu lt greater than or equal to 126 mg/dL suggests DIABETES MELLITUS per A.D.A. criteria. Neutrophils (Bld) [#/Vol] 6.4 10*3/uL 2.0-7.7 [facility] Work Phone: Neutrophils/100 WBC (Bld) 65.6 % 47-70 [facility] Work Phone: Potassium [Moles/Vol] 3.9 mmol/L 3.5-5.1 [facility] Work Phone: Sodium [Moles/Vol] 140 mmol/L 136-145 [facility] Work Phone: WBC (Bld) [#/Vol] 9.7 10*3/uL 4.4-11.0 [facility] Work Phone: Basophil percentage 0-5 SEEN /hpf 0-5 [facility] Work Phone: Bilirubin Test strip Ql (U)o n 05-20-2022 Bilirubin Ql (U) Negative Negative [facility] Work Phone: Blood erythrocytes count (nu mber/volume)on 05-20-2022 RBC (Bld) [#/Vol] 4.36 10*6/uL 4.6-6.2 [facility] Work Phone: Blood hemoglobin measurement (mass/volume)on 05-20-2022 Hemoglobin (Bld) [Mass/Vol] 12.9 g/dL 13.0-16.5 [facility] Work Phone: Blood lymphocytes/100 leukoc yteson 05-20-2022 Lymphocytes/100 WBC (Bld) 21.4 % 19-41 [facility] Work Phone: Blood monocytes/100 leukocyt eson 05-20-2022 Monocytes/100 WBC (Bld) 9.3 % 0-10 [facility] Work Phone: Blood platelet mean volumeon 05-20-2022 Platelet mean volume (Bld) [Entitic vol] 9.6 fL 6.2-12.0 [facility] Work Phone: Determination of erythrocyte mean corpuscular volume (MCV)on 05-20-2022 MCV (RBC) [Entitic vol] 91.5 fL 80-94 [facility] Work Phone: Hematocrit Auto (Bld) [Volum e fraction]on 05-20-2022 Hematocrit (Bld) [Volume fraction] 39.9 % 40-54 [facility] Work Phone: Ketones Test strip Ql (U)on 05-20-2022 Ketones Ql (U) Negative Negative [facility] Work Phone: Laboratory - Chemistry and C hemistry - challengeon 05-20-2022 CO2 [Moles/Vol] 26.0 mmol/L 21.0-32.0 [facility] Work Phone: Urea nitrogen/Creatinine [Mass ratio] 9.9 mg/mg 10-20 [facility] Work Phone: Laboratory - Hematology and Cell countson 05-20-2022 Erythrocyte distribution width (RBC) [Entitic vol] 45.7 fL 35.1-43.9 [facility] Work Phone: Erythrocyte distribution width (RBC) [Ratio] 13.6 % 11.6-14.6 [facility] Work Phone: Immature granulocytes/100 WBC (Bld) 0.500 % 0.0-0.9 [facility] Work Phone: Comment on above: IG% - Immature Granu locytes (promyelocytes, myelocytes and metamyelocytes) > 1% indicates that a LEFT SHIFT is Present. MCH (RBC) [Entitic mass] 29.6 pg 27.0-32.0 [facility] Work Phone: Nucleated RBC/100 WBC (Bld) [Ratio] 0 % 0-5 [facility] Work Phone: MCHC Auto (RBC) [Mass/Vol]on 05-20-2022 MCHC (RBC) [Mass/Vol] 32.3 g/dL 32-36 [facility] Work Phone: Mucus LM Ql (Urine sed)on Mucus Ql (Urine sed) 0 SEEN /hpf [facility] Work Phone: Nitrite Test strip Ql (U)on 05-20-2022 Nitrite Ql (U) Negative Negative [facility] Work Phone: No Panel Informationon 05-20 Estimated GFR (MDRD) Amer 53 mL/min >60 [facility] Work Phone: Comment on above: GFR Calc Estimated GFR (MDRD) Non-Af Amer 44 mL/min >60 [facility] Work Phone: Comment on above: Non- GFR Calc Platelets bldon 05-20-2022 Platelets (Bld) [#/Vol] 197 10*3/uL 150-450 [facility] Work Phone: Protein Test strip Ql (U)on 05-20-2022 Protein Ql (U) Negative Negative [facility] Work Phone: Serum or plasma albumin you urement (mass/volume)on 05-20-2022 Albumin [Mass/Vol] 2.7 g/dL 3.2-5.0 [facility] Work Phone: Serum or plasma calcium you urement (mass/volume)on 05-20-2022 Calcium [Mass/Vol] 9.0 mg/dL 8.5-10.1 [facility] Work Phone: Serum or plasma creatinine m easurement (mass/volume)on 05-20-2022 Creatinine [Mass/Vol] 1.71 mg/dL 0.70-1.30 [facility] Work Phone: Comment on above: The validity of the calculated GFR & GFRAA in patients over 70 years has not been determined. Clinical correlation is essential. Serum or plasma urea nitroge n measurement (mass/volume)on 05-20-2022 Urea nitrogen [Mass/Vol] 17 mg/dL 7-18 [facility] Work Phone: Squamous epithelial cells de tection in urine sediment by light microscopyon 05-20-2022 Epithelial cells.squamous LM Ql (Urine sed) 0-5 SEEN /hpf 0-5 [facility] Work Phone: Urine blood detectionon RBC Ql (U) Negative Negative [facility] Work Phone: RBC Ql (U) 0 SEEN /hpf 0-5 [facility] Work Phone: Urine clarityon 05-20-2022 Clarity (U) Clear Clear [facility] Work Phone: Urine color determinationon 05-20-2022 Color (U) Yellow Yellow [facility] Work Phone: Urine creatinine measurement (mass/volume)on 05-20-2022 Creatinine (U) [Mass/Vol] 107.00 mg/dL NO RANGE EST. [facility] Work Phone: Urine glucose detectionon Glucose Ql (U) Normal mg/dl Normal [facility] Work Phone: Urine leukocyte esterase det ection by dipstickon 05-20-2022 Leukocyte esterase Test strip Ql (U) 25 /ul Negative [facility] Work Phone: Urine pHon 05-20-2022 pH (U) 6.5 [pH] 5.0 - 8.0 [facility] Work Phone: Urine protein measurement (m ass/volume)on 05-20-2022 Protein (U) [Mass/Vol] 17.3 mg/dL 0.0-11.8 [facility] Work Phone: Urine protein/creatinine mas s ratioon 05-20-2022 Protein/Creatinine (U) [Mass ratio] 162 mg/g CRE 0-200 [facility] Work Phone: [phone] Urine sediment bacteria coun t by microscopy (number/high power field)on 05-20-2022 Bacteria LM.HPF (Urine sed) [#/Area] 0 /[HPF] None Seen [facility] Work Phone: Urine specific gravity measu rementon 05-20-2022 Specific gravity (U) [Rel density] 1.010 1.002-1.030 [facility] Work Phone: [phone] Urobilinogen Auto test strip Ql (U)on 05-20-2022 Urobilinogen Ql (U) Normal mg/dl Normal [facility] Work Phone: No Panel Informationon 05-05 [facility] Absolute lymphocyte counton 04-27-2022 Lymphocytes Auto (Unsp spec) [#/Vol] 2.36 10*3/uL 0.83-4.51 [facility] Work Phone: Basophil percentageon 2021 Basophil percentage 4.6 mg/dL 2.5-4.[address] [facility] Work Phone: [phone] Basophils/100 WBC (Bld) 0.3 % 0-1 [facility] Work Phone: Chloride [Moles/Vol] 104 mmol/L 98-107 [facility]: Eosinophils/100 WBC (Bld) 0.1 % 0-5 [facility] Work Phone: Glucose [Mass/Vol] 190 mg/dL 74-106 [facility] Work [facility]: Comment on above: Fasting Glucose resu lt greater than or equal to 126 mg/dL suggests DIABETES MELLITUS per A.D.A. criteria. Neutrophils (Bld) [#/Vol] 10.5 10*3/uL 2.0-7.7 [facility] Work Phone: Neutrophils/100 WBC (Bld) 72.0 % 47-70 [facility] Work Phone: Potassium [Moles/Vol] 3.8 mmol/L 3.5-5.1 [place] [facility] Work Phone: Sodium [Moles/Vol] 140 mmol/L 136-145 [facility] Work Phone: [phone] WBC (Bld) [#/Vol] 14.5 10*3/uL 4.4-11.[address] [facility] Work Phone: Blood erythrocytes count (nu mber/volume)on 04-27-2022 RBC (Bld) [#/Vol] 4.56 10*6/uL 4.6-6.2 [facility] Work Phone: Blood hemoglobin measurement (mass/volume)on 04-27-2022 Hemoglobin (Bld) [Mass/Vol] 13.4 g/dL 13.0-16.5 [facility] Work Phone: Blood lymphocytes/100 leukoc yteson 04-27-2022 Lymphocytes/100 WBC (Bld) 16.3 % 19-41 [facility] Work Phone: Blood monocytes/100 leukocyt eson 04-27-2022 Monocytes/100 WBC (Bld) 7.6 % 0-10 [facility] Work Phone: Blood platelet mean volumeon 04-27-2022 Platelet mean volume (Bld) [Entitic vol] 9.2 fL 6.2-12.0 [facility] Work Phone: Determination of erythrocyte mean corpuscular volume (MCV)on 04-27-2022 MCV (RBC) [Entitic vol] 91.0 fL 80-94 [facility] Work Phone: Hematocrit Auto (Bld) [Volum e fraction]on 04-27-2022 Hematocrit (Bld) [Volume fraction] 41.5 % 40-54 [facility] Work Phone: Laboratory - Chemistry and C hemistry - challengeon 04-27-2022 CO2 [Moles/Vol] 28.0 mmol/L 21.0-32.0 [facility] Work Phone: Urea nitrogen/Creatinine [Mass ratio] 13.4 mg/mg 10-20 [facility] Work Phone: Laboratory - Hematology and Cell countson 04-27-2022 Erythrocyte distribution width (RBC) [Entitic vol] 45.7 fL 35.1-43.9 [facility] Work Phone: Erythrocyte distribution width (RBC) [Ratio] 13.7 % 11.6-14.6 [facility] Work Phone: Immature granulocytes/100 WBC (Bld) 3.700 % 0.0-0.9 [facility] Work Phone: Comment on above: IG% - Immature Granu locytes (promyelocytes, myelocytes and metamyelocytes) > 1% indicates that a LEFT SHIFT is Present. MCH (RBC) [Entitic mass] 29.4 pg 27.0-32.0 [facility] Work Phone: Nucleated RBC/100 WBC (Bld) [Ratio] 0.1 % 0-5 [facility] Work Phone: MCHC Auto (RBC) [Mass/Vol]on 04-27-2022 MCHC (RBC) [Mass/Vol] 32.3 g/dL 32-36 [facility] Work Phone: No Panel Informationon 04-27 Estimated GFR (MDRD) Amer 44 mL/min >60 [facility] Work Phone: Comment on above: GFR Calc Estimated GFR (MDRD) Non-Af Amer 36 mL/min >60 [facility] Work Phone: Comment on above: Non- GFR Calc [place] Level 0.50 mmol/L 0.60-1.20 [facility] Work Phone: Platelets bldon 04-27-2022 Platelets (Bld) [#/Vol] 243 10*3/uL 150-450 [facility] Work Phone: Serum or plasma albumin you urement (mass/volume)on 04-27-2022 Albumin [Mass/Vol] 2.9 g/dL 3.2-5.0 [facility] Work Phone: Serum or plasma calcium you urement (mass/volume)on 04-27-2022 Calcium [Mass/Vol] 9.3 mg/dL 8.5-10.1 [facility] Work Phone: Serum or plasma creatinine m easurement (mass/volume)on 04-27-2022 Creatinine [Mass/Vol] 2.02 mg/dL 0.70-1.30 [place] [facility] Work Phone: Comment on above: The validity of the calculated GFR & GFRAA in patients over 70 years has not been determined. Clinical correlation is essential. Serum or plasma urea nitroge n measurement (mass/volume)on 04-27-2022 Urea nitrogen [Mass/Vol] 27 mg/dL 7-18 [facility] Work Phone: Serum or plasma uric acid me asurement (mass/volume)on 04-27-2022 Urate [Mass/Vol] 6.5 mg/dL 3.5-7.2 [facility] Work Phone: Comment on above: The drugs N-Acetylcy steine and Metamizole may falsely depress this assay. Urine creatinine measurement (mass/volume)on 04-27-2022 Creatinine (U) [Mass/Vol] 69.70 mg/dL NO RANGE EST. [facility] Work Phone: Urine protein measurement (m ass/volume)on 04-27-2022 Protein (U) [Mass/Vol] 10.2 mg/dL 0.0-11.8 [facility] Work Phone: Urine protein/creatinine mas s ratioon 04-27-2022 Protein/Creatinine (U) [Mass ratio] 146 mg/g CRE 0-200 [facility] Work Phone: Basophil percentageon 2021 Basophil percentage 4.2 mg/dL 2.5-4.9 [place] [facility] Work Phone: Chloride [Moles/Vol] 107 mmol/L 98-[address] [facility] Work Phone: Glucose [Mass/Vol] 129 mg/dL 74-106 [facility] Work Phone: Comment on above: Fasting Glucose resu lt greater than or equal to 126 mg/dL suggests DIABETES MELLITUS per A.D.A. criteria. Potassium [Moles/Vol] 3.8 mmol/L 3.5-5.1 [facility] Work Phone: Sodium [Moles/Vol] 140 mmol/L 136-145 [facility] Work Phone: Basophil percentage 25-50 SEEN /hpf 0-5 [facility] Work Phone: Bilirubin Test strip Ql (U)o n 04-22-2022 Bilirubin Ql (U) Negative Negative [facility] Work Phone: Culture, urineon 04-22-2022 Bacteria identified Cx Nom (U) Positive [facility] Work Phone: Ketones Test strip Ql (U)on 04-22-2022 Ketones Ql (U) Negative Negative [facility] Work Phone: Laboratory - Chemistry and C hemistry - challengeon 04-22-2022 CO2 [Moles/Vol] 27.0 mmol/L 21.0-32.0 [facility] Work Phone: Urea nitrogen/Creatinine [Mass ratio] 8.2 mg/mg 10-20 [facility] Work Phone: Mucus LM Ql (Urine sed)on Mucus Ql (Urine sed) 0 SEEN /hpf [facility] Work Phone: Nitrite Test strip Ql (U)on 04-22-2022 Nitrite Ql (U) Negative Negative [facility] Work Phone: No Panel Informationon 04-22 Estimated GFR (MDRD) Amer 53 mL/min >60 [facility] Work Phone: Comment on above: GFR Calc Estimated GFR (MDRD) Non-Af Amer 44 mL/min >60 [facility] Work Phone: Comment on above: Non- GFR Calc Protein Test strip Ql (U)on 04-22-2022 Protein Ql (U) 15 mg/dl Negative [facility] Work Phone: Serum or plasma albumin you urement (mass/volume)on 04-22-2022 Albumin [Mass/Vol] 2.6 g/dL 3.2-5.0 [facility] Work Phone: Serum or plasma calcium you urement (mass/volume)on 04-22-2022 Calcium [Mass/Vol] 9.1 mg/dL 8.5-10.1 [facility] Work Phone: Serum or plasma creatinine m easurement (mass/volume)on 04-22-2022 Creatinine [Mass/Vol] 1.71 mg/dL 0.70-1.30 [facility] Work Phone: Comment on above: The validity of the calculated GFR & GFRAA in patients over 70 years has not been determined. Clinical correlation is essential. Serum or plasma urea nitroge n measurement (mass/volume)on 04-22-2022 Urea nitrogen [Mass/Vol] 14 mg/dL 7-18 [facility] Work Phone: Squamous epithelial cells de tection in urine sediment by light microscopyon 04-22-2022 Epithelial cells.squamous LM Ql (Urine sed) 0-5 SEEN /hpf 0-5 [facility] Work Phone: Urine blood detectionon RBC Ql (U) 10 /ul Negative [facility] Work Phone: RBC Ql (U) 0-5 SEEN /hpf 0-5 [facility] Work Phone: Urine clarityon 04-22-2022 Clarity (U) Clear Clear [facility] Work Phone: Urine color determinationon 04-22-2022 Color (U) Yellow Yellow [facility] Work Phone: Urine creatinine measurement (mass/volume)on 04-22-2022 Creatinine (U) [Mass/Vol] 171.00 mg/dL NO RANGE EST. [facility] Work Phone: Urine glucose detectionon Glucose Ql (U) Normal mg/dl Normal [facility] Work Phone: Urine leukocyte esterase det ection by dipstickon 04-22-2022 Leukocyte esterase Test strip Ql (U) 500 /ul Negative [facility] Work Phone: Urine pHon 04-22-2022 pH (U) 6.0 [pH] 5.0 - 8.0 [facility] Work Phone: Urine protein measurement (m ass/volume)on 04-22-2022 Protein (U) [Mass/Vol] 30.4 mg/dL 0.0-11.8 [facility] Work Phone: Urine protein/creatinine mas s ratioon 04-22-2022 Protein/Creatinine (U) [Mass ratio] 178 mg/g CRE 0-200 [facility] Work Phone: Urine sediment bacteria coun t by microscopy (number/high power field)on 04-22-2022 Bacteria LM.HPF (Urine sed) [#/Area] 0 /[HPF] None Seen [facility] Work Phone: Urine specific gravity measu rementon 04-22-2022 Specific gravity (U) [Rel density] 1.015 1.002-1.030 [facility] Work Phone: Urobilinogen Auto test strip Ql (U)on 04-22-2022 Urobilinogen Ql (U) Normal mg/dl Normal [facility] Work Phone: Absolute lymphocyte counton 04-21-2022 Lymphocytes Auto (Unsp spec) [#/Vol] 2.19 10*3/uL 0.83-4.51 [facility] Work Phone: Basophil percentageon 2021 Basophils/100 WBC (Bld) 0.6 % 0-1 [facility] Work Phone: Eosinophils/100 WBC (Bld) 2.4 % 0-5 [facility] Work Phone: Neutrophils (Bld) [#/Vol] 5.3 10*3/uL 2.0-7.7 [facility] Work Phone: [phone] Neutrophils/100 WBC (Bld) 60.5 % 47-70 [facility] Work Phone: WBC (Bld) [#/Vol] 8.8 10*3/uL 4.4-11.0 [facility] Work Phone: Blood erythrocytes count (nu mber/volume)on 04-21-2022 RBC (Bld) [#/Vol] 4.29 10*6/uL 4.6-6.2 [facility] Work Phone: Blood hemoglobin measurement (mass/volume)on 04-21-2022 Hemoglobin (Bld) [Mass/Vol] 12.9 g/dL 13.0-16.5 [facility] Work Phone: Blood lymphocytes/100 leukoc yteson 04-21-2022 Lymphocytes/100 WBC (Bld) 24.9 % 19-41 [facility] Work Phone: Blood monocytes/100 leukocyt eson 04-21-2022 Monocytes/100 WBC (Bld) 11.4 % 0-10 [facility] Work Phone: Blood platelet mean volumeon 04-21-2022 Platelet mean volume (Bld) [Entitic vol] 9.5 fL 6.2-12.0 [facility] Work Phone: Determination of erythrocyte mean corpuscular volume (MCV)on 04-21-2022 MCV (RBC) [Entitic vol] 92.1 fL 80-94 [facility] Work Phone: Hematocrit Auto (Bld) [Volum e fraction]on 04-21-2022 Hematocrit (Bld) [Volume fraction] 39.5 % 40-54 [facility] Work Phone: Laboratory - Hematology and Cell countson 06-08-2022 Erythrocyte distribution width (RBC) [Entitic vol] 45.9 fL 35.1-43.9 [facility] Work Phone: Erythrocyte distribution width (RBC) [Ratio] 13.5 % 11.6-14.6 [facility] Work Phone: Immature granulocytes/100 WBC (Bld) 0.200 % 0.0-0.9 [facility] Work Phone: Comment on above: IG% - Immature Granu locytes (promyelocytes, myelocytes and metamyelocytes) > 1% indicates that a LEFT SHIFT is Present. MCH (RBC) [Entitic mass] 30.1 pg 27.0-32.0 [facility] Work Phone: Nucleated RBC/100 WBC (Bld) [Ratio] 0 % 0-5 [facility] Work Phone: MCHC Auto (RBC) [Mass/Vol]on 04-21-2022 MCHC (RBC) [Mass/Vol] 32.7 g/dL 32-36 [facility] Work Phone: Platelets bldon 04-21-2022 Platelets (Bld) [#/Vol] 199 10*3/uL 150-450 [facility] Work Phone: Serum or plasma uric acid me asurement (mass/volume)on 04-21-2022 Urate [Mass/Vol] 6.2 mg/dL 3.5-7.2 [facility] Work Phone: Comment on above: The drugs N-Acetylcy steine and Metamizole may falsely depress this assay. Laboratory - Microbiology an d Antimicrobial susceptibilityon 04-06-2022 SARS-CoV-2 (COVID-19) RNA AMANDO+probe Ql (Unsp spec) Detected Not Detect [facility] Work Phone: Comment on above: Normal Reference Ran ge: Not DetectedMethod:(RT-PCR) real-time reverse transcriptase PCRLuminex MORGAN Instrument*The Food and Drug Administration (FDA) has issued an Emergency Use Authorization (EAU) for the MORGAN SARS-CoV-2 Assay for the rapid detection of the virus that causes COVID-19. This test has been validated, but the [facility] this validation is [...] Auto (Unsp spec) [#/Vol] 1.96 10*3/uL 0.83-4.51 [facility] Work Phone: Basophil percentageon 2021 Basophils/100 WBC (Bld) 0.6 % 0-1 [facility] Work Phone: Chloride [Moles/Vol] 103 mmol/L 98-107 [facility] Work Phone: Eosinophils/100 WBC (Bld) 0.6 % 0-5 [facility] Work Phone: Glucose [Mass/Vol] 133 mg/dL 74-106 [facility] Work Phone: Comment on above: Fasting Glucose resu lt greater than or equal to 126 mg/dL suggests DIABETES MELLITUS per A.D.A. criteria. Neutrophils (Bld) [#/Vol] 7.3 10*3/uL 2.0-7.7 [facility] Work Phone: Neutrophils/100 WBC (Bld) 64.6 % 47-70 [facility] Work Phone: Potassium [Moles/Vol] 3.5 mmol/L 3.5-5.1 [facility] Work Phone: Sodium [Moles/Vol] 138 mmol/L 136-145 [facility] Work Phone: WBC (Bld) [#/Vol] 11.3 10*3/uL 4.4-11.0 [facility] Work Phone: Blood erythrocytes count (nu mber/volume)on 04-02-2022 RBC (Bld) [#/Vol] 4.81 10*6/uL 4.6-6.2 [facility] Work Phone: Blood hemoglobin measurement (mass/volume)on 04-02-2022 Hemoglobin (Bld) [Mass/Vol] 14.4 g/dL 13.0-16.5 [facility] Work Phone: Blood lymphocytes/100 leukoc yteson 04-02-2022 Lymphocytes/100 WBC (Bld) 17.3 % 19-41 [facility] Work Phone: Blood monocytes/100 leukocyt eson 04-02-2022 Monocytes/100 WBC (Bld) 15.7 % 0-10 [facility] Work Phone: Blood platelet mean volumeon 04-02-2022 Platelet mean volume (Bld) [Entitic vol] 10.0 fL 6.2-12.0 [facility] Work Phone: Determination of erythrocyte mean corpuscular volume (MCV)on 04-02-2022 MCV (RBC) [Entitic vol] 91.7 fL 80-94 [facility] Work Phone: Hematocrit Auto (Bld) [Volum e fraction]on 04-02-2022 Hematocrit (Bld) [Volume fraction] 44.1 % 40-54 [facility] Work Phone: Laboratory - Chemistry and C hemistry - challengeon 04-02-2022 CO2 [Moles/Vol] 26.0 mmol/L 21.0-32.0 [facility] Work Phone: Urea nitrogen/Creatinine [Mass ratio] 14.1 mg/mg 09-02 [facility] Work Phone: Laboratory - Hematology and Cell countson 04-02-2022 Erythrocyte distribution width (RBC) [Entitic vol] 47.8 fL 35.1-43.9 [facility] Work Phone: Erythrocyte distribution width (RBC) [Ratio] 14.0 % 11.6-14.6 [facility] Work Phone: Immature granulocytes/100 WBC (Bld) 1.200 % 0.0-0.9 [facility] Work Phone: Comment on above: IG% - Immature Granu locytes (promyelocytes, myelocytes and metamyelocytes) > 1% indicates that a LEFT SHIFT is Present. MCH (RBC) [Entitic mass] 29.9 pg 27.0-32.0 [facility] Work Phone: Nucleated RBC/100 WBC (Bld) [Ratio] 0 % 0-5 [facility] Work Phone: MCHC Auto (RBC) [Mass/Vol]on 04-02-2022 MCHC (RBC) [Mass/Vol] 32.7 g/dL 32-36 [facility] Work Phone: No Panel Informationon 04-02 Estimated GFR (MDRD) Amer 51 mL/min >60 [facility] Work Phone: Comment on above: GFR Calc Estimated GFR (MDRD) Non-Af Amer 42 mL/min >60 [facility] Work Phone: Comment on above: Non- GFR Calc Platelets bldon 04-02-2022 Platelets (Bld) [#/Vol] 160 10*3/uL 150-450 [facility] Work Phone: Review by pathologiston 03-15 Pathologist review Crispin (Unsp spec) [Interp] Reviewed [facility] Work Phone: Comment on above: Previous reported re sult: Bonnie kincaid Edited by: RGOOD on 04/06/22:912Leukocytosis. Tuan Servin M.D. 04/06/22 AMENDED REPORT 04/06/22912 PATH REV previously reported as: Bonnie kincaid Serum or plasma calcium you urement (mass/volume)on 04-02-2022 Calcium [Mass/Vol] 9.0 mg/dL 8.5-10.1 [facility] Work Phone: Serum or plasma creatinine m easurement (mass/volume)on 04-02-2022 Creatinine [Mass/Vol] 1.77 mg/dL 0.70-1.30 [facility] Work Phone: Comment on above: The validity of the calculated GFR & GFRAA in patients over 70 years has not been determined. Clinical correlation is essential. Serum or plasma urea nitroge n measurement (mass/volume)on 04-02-2022 Urea nitrogen [Mass/Vol] 25 mg/dL 7-18 [facility] Work Phone: Thin prep Papanicolaou smear with manual screeningon 04-02-2022 Thin prep Papanicolaou smear with manual screening 9 5-15 [facility] Work Phone: Absolute lymphocyte counton 03-25-2022 Lymphocytes Auto (Unsp spec) [#/Vol] 2.80 10*3/uL 0.83-4.51 [facility] Work Phone: Basophil percentageon 2021 Basophil percentage 4.0 mg/dL 2.5-4.9 [facility] Work Phone: Basophils/100 WBC (Bld) 0.6 % 0-1 [facility] Work Phone: Chloride [Moles/Vol] 106 mmol/L 98-107 [facility] Work Phone: Eosinophils/100 WBC (Bld) 1.7 % 0-5 [facility] Work Phone: Glucose [Mass/Vol] 164 mg/dL 74-106 [facility] Work Phone: Comment on above: Fasting Glucose resu lt greater than or equal to 126 mg/dL suggests DIABETES MELLITUS per A.D.A. criteria. Neutrophils (Bld) [#/Vol] 5.6 10*3/uL 2.0-7.7 [facility] Work Phone: Neutrophils/100 WBC (Bld) 56.9 % 47-70 [facility] Work Phone: Potassium [Moles/Vol] 3.8 mmol/L 3.5-5.1 [place] [facility] Work Phone: [phone] Sodium [Moles/Vol] 139 mmol/L 136-145 [facility] Work Phone: WBC (Bld) [#/Vol] 9.8 10*3/uL 4.4-11.0 [facility] Work Phone: Basophil percentage 0-5 SEEN /hpf 0-5 [facility] Work Phone: Bilirubin Test strip Ql (U)o n 03-25-2022 Bilirubin Ql (U) Negative Negative [facility] Work Phone: Blood erythrocytes count (nu mber/volume)on 03-25-2022 RBC (Bld) [#/Vol] 4.77 10*6/uL 4.6-6.[address] [facility] Work Phone: Blood hemoglobin measurement (mass/volume)on 03-25-2022 Hemoglobin (Bld) [Mass/Vol] 14.1 g/dL 13.0-16.5 [facility] Work Phone: Blood lymphocytes/100 leukoc yteson 03-25-2022 Lymphocytes/100 WBC (Bld) 28.7 % 19-41 [facility] Work Phone: Blood monocytes/100 leukocyt eson 03-25-2022 Monocytes/100 WBC (Bld) 9.2 % 0-10 [facility] Work Phone: Blood platelet mean volumeon 03-25-2022 Platelet mean volume (Bld) [Entitic vol] 9.3 fL 6.2-12.0 [facility] Work Phone: Determination of erythrocyte mean corpuscular volume (MCV)on 03-25-2022 MCV (RBC) [Entitic vol] 91.4 fL 80-94 [facility] Work Phone: [phone] Hematocrit Auto (Bld) [Volum e fraction]on 03-25-2022 Hematocrit (Bld) [Volume fraction] 43.6 % 40-54 [facility] Work Phone: Ketones Test strip Ql (U)on 03-25-2022 Ketones Ql (U) Negative Negative [facility] Work Phone: Laboratory - Chemistry and C hemistry - challengeon 03-25-2022 CO2 [Moles/Vol] 26.0 mmol/L 21.0-32.0 [facility] Work Phone: Urea nitrogen/Creatinine [Mass ratio] 15.4 mg/mg 10-20 [facility] Work Phone: Laboratory - Hematology and Cell countson 03-25-2022 Erythrocyte distribution width (RBC) [Entitic vol] 45.9 fL 35.1-43.9 [facility] Work Phone: Erythrocyte distribution width (RBC) [Ratio] 13.6 % 11.6-14.6 [facility] Work Phone: Immature granulocytes/100 WBC (Bld) 2.900 % 0.0-0.9 [facility] Work Phone: Comment on above: IG% - Immature Granu locytes (promyelocytes, myelocytes and metamyelocytes) > 1% indicates that a LEFT SHIFT is Present. MCH (RBC) [Entitic mass] 29.6 pg 27.0-32.0 [facility] Work Phone: Nucleated RBC/100 WBC (Bld) [Ratio] 0 % 0-5 [facility] Work Phone: MCHC Auto (RBC) [Mass/Vol]on 03-25-2022 MCHC (RBC) [Mass/Vol] 32.3 g/dL 32-36 [facility] Work Phone: Mucus LM Ql (Urine sed)on Mucus Ql (Urine sed) 0 SEEN /hpf [facility] Work Phone: Nitrite Test strip Ql (U)on 03-25-2022 Nitrite Ql (U) Negative Negative [facility] Work Phone: No Panel Informationon 03-25 Estimated GFR (MDRD) Amer 52 mL/min >60 [facility] Work Phone: Comment on above: GFR Calc Estimated GFR (MDRD) Non-Af Amer 43 mL/min >60 [facility] Work Phone: Comment on above: Non- GFR Calc Platelets bldon 03-25-2022 Platelets (Bld) [#/Vol] 276 10*3/uL 150-450 [facility] Work Phone: Protein Test strip Ql (U)on 03-25-2022 Protein Ql (U) Negative Negative [facility] Work Phone: Serum or plasma albumin you urement (mass/volume)on 03-25-2022 Albumin [Mass/Vol] 2.9 g/dL 3.2-5.0 [facility] Work Phone: Serum or plasma calcium you urement (mass/volume)on 03-25-2022 Calcium [Mass/Vol] 8.7 mg/dL 8.5-10.1 [facility] Work Phone: Serum or plasma creatinine m easurement (mass/volume)on 03-25-2022 Creatinine [Mass/Vol] 1.75 mg/dL 0.70-1.30 [facility] Work Phone: Comment on above: The validity of the calculated GFR & GFRAA in patients over 70 years has not been determined. Clinical correlation is essential. Serum or plasma urea nitroge n measurement (mass/volume)on 03-25-2022 Urea nitrogen [Mass/Vol] 27 mg/dL 7-18 [facility] Work Phone: Squamous epithelial cells de tection in urine sediment by light microscopyon 03-25-2022 Epithelial cells.squamous LM Ql (Urine sed) 0-5 SEEN /hpf 0-5 [facility] Work Phone: Urine blood detectionon 03-14 RBC Ql (U) Negative Negative [facility] Work Phone: RBC Ql (U) 0 SEEN /hpf 0-5 [facility] Work Phone: Urine clarityon 03-25-2022 Clarity (U) Sl. Cloudy Clear [facility] Work Phone: Urine color determinationon 03-25-2022 Color (U) Yellow Yellow [facility] Work Phone: Urine creatinine measurement (mass/volume)on 03-25-2022 Creatinine (U) [Mass/Vol] 90.50 mg/dL NO RANGE EST. [facility] Work Phone: Urine glucose detectionon Glucose Ql (U) Normal mg/dl Normal [facility] Work Phone: Urine leukocyte esterase det ection by dipstickon 03-25-2022 Leukocyte esterase Test strip Ql (U) 25 /ul Negative [facility] Work Phone: Urine pHon 03-25-2022 pH (U) 6.0 [pH] 5.0 - 8.0 [facility] Work Phone: Urine protein measurement (m ass/volume)on 03-25-2022 Protein (U) [Mass/Vol] 15.8 mg/dL 0.0-11.8 [facility] Work Phone: Urine protein/creatinine mas s ratioon 03-25-2022 Protein/Creatinine (U) [Mass ratio] 175 mg/g CRE 0-200 [facility] Work Phone: Urine sediment bacteria coun t by microscopy (number/high power field)on 03-25-2022 Bacteria LM.HPF (Urine sed) [#/Area] 0 /[HPF] None Seen [facility] Work Phone: Urine specific gravity measu rementon 03-25-2022 Specific gravity (U) [Rel density] 1.015 1.002-1.030 [facility] Work Phone: Urobilinogen Auto test strip Ql (U)on 03-25-2022 Urobilinogen Ql (U) Normal mg/dl Normal [facility] Work Phone: Serum or plasma uric acid me asurement (mass/volume)on 03-19-2022 Urate [Mass/Vol] 8.3 mg/dL 3.5-7.2 [facility] Work Phone: Comment on above: The drugs N-Acetylcy steine and Metamizole may falsely depress this assay. Absolute lymphocyte counton 02-25-2022 Lymphocytes Auto (Unsp spec) [#/Vol] 2.27 10*3/uL 0.83-4.51 [facility] Work Phone: Basophil percentageon 2021 Basophil percentage 0 SEEN /hpf 0-5 [facility] Work Phone: Basophil percentage 4.3 mg/dL 2.5-4.9 [facility] Work Phone: Basophils/100 WBC (Bld) 0.3 % 0-1 [facility] Work Phone: Chloride [Moles/Vol] 102 mmol/L 98-107 [facility] Work Phone: Eosinophils/100 WBC (Bld) 0.2 % 0-5 [facility] Work Phone: Glucose [Mass/Vol] 107 mg/dL 74-106 [facility] Work Phone: Comment on above: Fasting Glucose resu lt from 100 to 125 mg/dL suggests IMPAIRED HOMEOSTASIS per A.D.A. criteria. Neutrophils (Bld) [#/Vol] 7.8 10*3/uL 2.0-7.7 [facility] Work Phone: Neutrophils/100 WBC (Bld) 67.9 % 47-70 [facility] Work Phone: Potassium [Moles/Vol] 4.1 mmol/L 3.5-5.1 [facility] Work Phone: Comment on above: Moderate Hemolysis, Result may be falsely increased. Sodium [Moles/Vol] 137 mmol/L 136-145 [facility] Work Phone: WBC (Bld) [#/Vol] 11.6 10*3/uL 4.4-11.0 [facility] Work Phone: Bilirubin Test strip Ql (U)o n 02-25-2022 Bilirubin Ql (U) Negative Negative [facility] Work Phone: Blood erythrocytes count (nu mber/volume)on 02-25-2022 RBC (Bld) [#/Vol] 4.09 10*6/uL 4.6-6.2 [facility] Work Phone: Blood hemoglobin measurement (mass/volume)on 02-25-2022 Hemoglobin (Bld) [Mass/Vol] 12.0 g/dL 13.0-16.5 [facility] Work Phone: Blood lymphocytes/100 leukoc yteson 02-25-2022 Lymphocytes/100 WBC (Bld) 19.7 % 19-41 [facility] Work Phone: Blood monocytes/100 leukocyt eson 02-25-2022 Monocytes/100 WBC (Bld) 9.0 % 0-10 [facility] Work Phone: Blood platelet adequacy dete ction by light microscopyon 02-25-2022 Platelets LM Ql (Bld) ADEQUATE ADEQ [facility] Work Phone: Blood platelet mean volumeon 02-25-2022 Platelet mean volume (Bld) [Entitic vol] 9.9 fL 6.2-12.0 [facility] Work Phone: Culture, urineon 02-25-2022 Bacteria identified Cx Nom (U) Culture exhibits no growth. [facility] Work Phone: Determination of erythrocyte mean corpuscular volume (MCV)on 02-25-2022 MCV (RBC) [Entitic vol] 90.2 fL 80-94 [facility] Work Phone: Hematocrit Auto (Bld) [Volum e fraction]on 02-25-2022 Hematocrit (Bld) [Volume fraction] 36.9 % 40-54 [facility] Work Phone: Ketones Test strip Ql (U)on 02-25-2022 Ketones Ql (U) Negative Negative [facility] Work Phone: Laboratory - Chemistry and C hemistry - challengeon 02-25-2022 CO2 [Moles/Vol] 26.0 mmol/L 21.0-32.0 [facility] Work Phone: Urea nitrogen/Creatinine [Mass ratio] 18.6 mg/mg 10-20 [facility] Work Phone: Laboratory - Hematology and Cell countson 02-25-2022 Erythrocyte distribution width (RBC) [Entitic vol] 46.8 fL 35.1-43.9 [facility] Work Phone: Erythrocyte distribution width (RBC) [Ratio] 14.1 % 11.6-14.6 [facility] Work Phone: Immature granulocytes/100 WBC (Bld) 2.900 % 0.0-0.9 [facility] Work Phone: Comment on above: IG% - Immature Granu locytes (promyelocytes, myelocytes and metamyelocytes) > 1% indicates that a LEFT SHIFT is Present. MCH (RBC) [Entitic mass] 29.3 pg 27.0-32.0 [facility] Work Phone: Nucleated RBC/100 WBC (Bld) [Ratio] 0 % 0-5 [facility] Work Phone: MCHC Auto (RBC) [Mass/Vol]on 02-25-2022 MCHC (RBC) [Mass/Vol] 32.5 g/dL 32-36 [facility] Work Phone: Mucus LM Ql (Urine sed)on Mucus Ql (Urine sed) 0 SEEN /hpf [facility] Work Phone: Nitrite Test strip Ql (U)on 02-25-2022 Nitrite Ql (U) Negative Negative [facility] Work Phone: No Panel Informationon 02-25 Estimated GFR (MDRD) Amer 43 mL/min >60 [facility] Work Phone: Comment on above: GFR Calc Estimated GFR (MDRD) Non-Af Amer 36 mL/min >60 [facility] Work Phone: Comment on above: Non- GFR Calc [place] Level 0.50 mmol/L 0.60-1.20 [facility] Work Phone: Platelets bldon 02-25-2022 Platelets (Bld) [#/Vol] TNP [facility] Work Phone: Comment on above: Test not performedPl ease note: For this sample, a platelet estimate is provided rather than a platelet count due to platelet clumping. Other parameters associated with this sample are not affected by platelet clumping. If a more accurate platelet count is required, a redraw of the patient will be necessary.Previous reported result: [id number] by: RUPERTO on 02/25/22:1032 AMENDED REPORT 02/25/22 1032 PLT previously reported as: 202 K/mm3 Protein Test strip Ql (U)on 02-25-2022 Protein Ql (U) Negative Negative [facility] Work Phone: Serum or plasma albumin you urement (mass/volume)on 02-25-2022 Albumin [Mass/Vol] 3.2 g/dL 3.2-5.0 [facility] Work Phone: Serum or plasma calcium you urement (mass/volume)on 02-25-2022 Calcium [Mass/Vol] 8.4 mg/dL 8.5-10.1 [facility] Work Phone: Serum or plasma creatinine m easurement (mass/volume)on 02-25-2022 Creatinine [Mass/Vol] 2.04 mg/dL 0.70-1.30 [facility] Work Phone: Comment on above: The validity of the calculated GFR & GFRAA in patients over 70 years has not been determined. Clinical correlation is essential. Serum or plasma urea nitroge n measurement (mass/volume)on 02-25-2022 Urea nitrogen [Mass/Vol] 38 mg/dL 7-18 [facility] Work Phone: Serum or plasma uric acid me asurement (mass/volume)on 02-25-2022 Urate [Mass/Vol] 7.8 mg/dL 3.5-7.2 [facility] Work Phone: Comment on above: The drugs N-Acetylcy steine and Metamizole may falsely depress this assay. Squamous epithelial cells de tection in urine sediment by light microscopyon 02-25-2022 Epithelial cells.squamous LM Ql (Urine sed) 0 SEEN /hpf 0-5 [facility] Work Phone: Urine blood detectionon 02-12 RBC Ql (U) Negative Negative [facility] Work Phone: RBC Ql (U) 0 SEEN /hpf 0-5 [facility] Work Phone: Urine clarityon 02-25-2022 Clarity (U) Clear Clear [facility] Work Phone: Urine color determinationon 02-25-2022 Color (U) Yellow Yellow [facility] Work Phone: Urine creatinine measurement (mass/volume)on 02-25-2022 Creatinine (U) [Mass/Vol] 82.80 mg/dL NO RANGE EST. [facility] Work Phone: Urine glucose detectionon Glucose Ql (U) Normal mg/dl Normal [facility] Work Phone: Urine leukocyte esterase det ection by dipstickon 02-25-2022 Leukocyte esterase Test strip Ql (U) 25 /ul Negative [facility] Work Phone: Urine pHon 02-25-2022 pH (U) 6.0 [pH] 5.0 - 8.0 [facility] Work Phone: Urine protein measurement (m ass/volume)on 02-25-2022 Protein (U) [Mass/Vol] 13.8 mg/dL 0.0-11.8 [facility] Work Phone: Urine protein/creatinine mas s ratioon 02-25-2022 Protein/Creatinine (U) [Mass ratio] 167 mg/g CRE 0-200 [facility] Work Phone: Urine sediment bacteria coun t by microscopy (number/high power field)on 02-25-2022 Bacteria LM.HPF (Urine sed) [#/Area] 0 /[HPF] None Seen [facility] Work Phone: Urine specific gravity measu rementon 02-25-2022 Specific gravity (U) [Rel density] 1.020 1.002-1.030 [facility] Work Phone: Urobilinogen Auto test strip Ql (U)on 02-25-2022 Urobilinogen Ql (U) Normal mg/dl Normal [facility] Work Phone: Basophil percentageon 2021 Chloride [Moles/Vol] 110 mmol/L 98-107 [facility] Work Phone: Glucose [Mass/Vol] 125 mg/dL 74-106 [facility] Work Phone: Comment on above: Fasting Glucose resu lt from 100 to 125 mg/dL suggests IMPAIRED HOMEOSTASIS per A.D.A. criteria. Potassium [Moles/Vol] 4.1 mmol/L 3.5-5.1 [facility] Work Phone: Sodium [Moles/Vol] 139 mmol/L 136-145 [facility] Work Phone: Erythrocyte sedimentation ra meredith 02-18-2022 ESR (Bld) [Velocity] 12 mm/h 0-20 [facility] Work Phone: Laboratory - Chemistry and C hemistry - challengeon 02-18-2022 CO2 [Moles/Vol] 24.0 mmol/L 21.0-32.0 [facility] Work Phone: Urea nitrogen/Creatinine [Mass ratio] 11.8 mg/mg 10-20 [facility] Work Phone: No Panel Informationon 02-18 Estimated GFR (MDRD) Amer 48 mL/min >60 [facility] Work Phone: Comment on above: GFR Calc Estimated GFR (MDRD) Non-Af Amer 40 mL/min >60 [facility] Work Phone: Comment on above: Non- GFR Calc Serum or plasma calcium you urement (mass/volume)on 02-18-2022 Calcium [Mass/Vol] 8.7 mg/dL 8.5-10.1 [facility] Work Phone: Serum or plasma creatinine m easurement (mass/volume)on 02-18-2022 Creatinine [Mass/Vol] 1.86 mg/dL 0.70-1.30 [facility] Work Phone: Comment on above: The validity of the calculated GFR & GFRAA in patients over 70 years has not been determined. Clinical correlation is essential. Serum or plasma urea nitroge n measurement (mass/volume)on 02-18-2022 Urea nitrogen [Mass/Vol] 22 mg/dL 7-18 [facility] Work Phone: Serum or plasma uric acid me asurement (mass/volume)on 02-18-2022 Urate [Mass/Vol] 7.2 mg/dL 3.5-7.2 [facility] Work Phone: Comment on above: The drugs N-Acetylcy steine and Metamizole may falsely depress this assay. Thin prep Papanicolaou smear with manual screeningon 02-18-2022 Thin prep Papanicolaou smear with manual screening 5 5-15 [facility] Work Phone: Absolute lymphocyte counton 01-28-2022 Lymphocytes Auto (Unsp spec) [#/Vol] 1.90 10*3/uL 0.83-4.51 [facility] Work Phone: Basophil percentageon 2021 Basophil percentage 0 SEEN /hpf 0-5 [facility] Work Phone: Basophil percentage 2.7 mg/dL 2.5-4.9 [facility] Work Phone: Basophils/100 WBC (Bld) 0.5 % 0-1 [facility] Work Phone: Chloride [Moles/Vol] 110 mmol/L 98-107 [facility] Work Phone: Eosinophils/100 WBC (Bld) 0.4 % 0-5 [facility] Work Phone: Glucose [Mass/Vol] 129 mg/dL 74-106 [facility] Work Phone: Comment on above: Fasting Glucose resu lt greater than or equal to 126 mg/dL suggests DIABETES MELLITUS per A.D.A. criteria. Neutrophils (Bld) [#/Vol] 8.0 10*3/uL 2.0-7.7 [facility] Work Phone: Neutrophils/100 WBC (Bld) 70.6 % 47-70 [facility] Work Phone: Potassium [Moles/Vol] 3.8 mmol/L 3.5-5.1 [facility] Work Phone: Sodium [Moles/Vol] 141 mmol/L 136-145 [facility] Work Phone: [phone] WBC (Bld) [#/Vol] 11.3 10*3/uL 4.4-11.0 [facility] Work Phone: Bilirubin Test strip Ql (U)o n 01-28-2022 Bilirubin Ql (U) Negative Negative [facility] Work Phone: Blood erythrocytes count (nu mber/volume)on 01-28-2022 RBC (Bld) [#/Vol] 4.23 10*6/uL 4.6-6.2 [facility] Work Phone: Blood hemoglobin measurement (mass/volume)on 01-28-2022 Hemoglobin (Bld) [Mass/Vol] 12.6 g/dL 13.0-16.5 [facility] Work Phone: [phone] Blood lymphocytes/100 leukoc yteson 01-28-2022 Lymphocytes/100 WBC (Bld) 16.8 % 19-41 [facility] Work Phone: Blood monocytes/100 leukocyt eson 01-28-2022 Monocytes/100 WBC (Bld) 10.0 % 0-10 [facility] Work Phone: Blood platelet mean volumeon 01-28-2022 Platelet mean volume (Bld) [Entitic vol] 9.3 fL 6.2-12.0 [facility] Work Phone: Determination of erythrocyte mean corpuscular volume (MCV)on 01-28-2022 MCV (RBC) [Entitic vol] 91.3 fL 80-94 [facility] Work Phone: Hematocrit Auto (Bld) [Volum e fraction]on 01-28-2022 Hematocrit (Bld) [Volume fraction] 38.6 % 40-54 [facility] Work Phone: Ketones Test strip Ql (U)on 01-28-2022 Ketones Ql (U) Negative Negative [facility] Work Phone: Laboratory - Chemistry and C hemistry - challengeon 01-28-2022 CO2 [Moles/Vol] 25.0 mmol/L 21.0-32.0 [facility] Work Phone: Urea nitrogen/Creatinine [Mass ratio] 14.7 mg/mg 10-20 [facility] Work Phone: Laboratory - Hematology and Cell countson 01-28-2022 Erythrocyte distribution width (RBC) [Entitic vol] 45.7 fL 35.1-43.9 [facility] Work Phone: Erythrocyte distribution width (RBC) [Ratio] 13.7 % 11.6-14.6 [facility] Work Phone: Immature granulocytes/100 WBC (Bld) 1.700 % 0.0-0.9 [facility] Work Phone: Comment on above: IG% - Immature Granu locytes (promyelocytes, myelocytes and metamyelocytes) > 1% indicates that a LEFT SHIFT is Present. MCH (RBC) [Entitic mass] 29.8 pg 27.0-32.0 [facility] Work Phone: Nucleated RBC/100 WBC (Bld) [Ratio] 0 % 0-5 [facility] Work Phone: MCHC Auto (RBC) [Mass/Vol]on 01-28-2022 MCHC (RBC) [Mass/Vol] 32.6 g/dL 32-36 [facility] Work Phone: Mucus LM Ql (Urine sed)on Mucus Ql (Urine sed) 0 SEEN /hpf [facility] Work Phone: Nitrite Test strip Ql (U)on 01-28-2022 Nitrite Ql (U) Negative Negative [facility] Work Phone: No Panel Informationon 01-28 Urine Microalbumin/Creatinine Ratio 77.0 mg/g CRE <30 [facility] Work Phone: Estimated GFR (MDRD) Amer 56 mL/min >60 [facility] Work Phone: Comment on above: GFR Calc Estimated GFR (MDRD) Non-Af Amer 46 mL/min >60 [facility] Work Phone: Comment on above: Non- GFR Calc Platelets bldon 01-28-2022 Platelets (Bld) [#/Vol] 240 10*3/uL 150-450 [facility] Work Phone: Protein Test strip Ql (U)on 01-28-2022 Protein Ql (U) Negative Negative [facility] Work Phone: Serum or plasma albumin you urement (mass/volume)on 01-28-2022 Albumin [Mass/Vol] 3.2 g/dL 3.2-5.0 [facility] Work Phone: Serum or plasma calcium you urement (mass/volume)on 01-28-2022 Calcium [Mass/Vol] 8.4 mg/dL 8.5-10.1 [facility] Work Phone: Serum or plasma creatinine m easurement (mass/volume)on 01-28-2022 Creatinine [Mass/Vol] 1.63 mg/dL 0.70-1.30 [facility] Work Phone: Comment on above: The validity of the calculated GFR & GFRAA in patients over 70 years has not been determined. Clinical correlation is essential. Serum or plasma urea nitroge n measurement (mass/volume)on 01-28-2022 Urea nitrogen [Mass/Vol] 24 mg/dL 7-18 [facility] Work Phone: Squamous epithelial cells de tection in urine sediment by light microscopyon 01-28-2022 Epithelial cells.squamous LM Ql (Urine sed) 0-5 SEEN /hpf 0-5 [facility] Work Phone: Thin prep Papanicolaou smear with manual screeningon 01-28-2022 Thin prep Papanicolaou smear with manual screening 28.5 mg/L NO RANGE EST. [facility] Work Phone: Urine blood detectionon 01-12 RBC Ql (U) Negative Negative [facility] Work Phone: RBC Ql (U) 0 SEEN /hpf 0-5 [facility] Work Phone: Urine clarityon 01-28-2022 Clarity (U) Sl. Cloudy Clear [facility] Work Phone: Urine color determinationon 01-28-2022 Color (U) Yellow Yellow [facility] Work Phone: Urine creatinine measurement (mass/volume)on 01-28-2022 Creatinine (U) [Mass/Vol] 37.00 mg/dL NO RANGE EST. [facility] Work Phone: Urine glucose detectionon Glucose Ql (U) Normal mg/dl Normal [facility] Work Phone: Urine leukocyte esterase det ection by dipstickon 01-28-2022 Leukocyte esterase Test strip Ql (U) Negative Negative [facility] Work Phone: Urine pHon 01-28-2022 pH (U) 7.0 [pH] 5.0 - 8.0 [facility] Work Phone: Urine sediment bacteria coun t by microscopy (number/high power field)on 01-28-2022 Bacteria LM.HPF (Urine sed) [#/Area] 0 /[HPF] None Seen [facility] Work Phone: Urine specific gravity measu rementon 01-28-2022 Specific gravity (U) [Rel density] 1.010 1.002-1.030 [facility] Work Phone: Urobilinogen Auto test strip Ql (U)on 01-28-2022 Urobilinogen Ql (U) Normal mg/dl Normal [facility] Work Phone: No Panel Informationon 01-25 [place] Level 0.50 mmol/L 0.60-1.20 [facility] Work Phone: Basophil percentageon 2021 Cholesterol [Mass/Vol] 140 mg/dL <200 [facility] Work Phone: Comment on above: <200 mg/dL Desirable 200-240 mg/dL Borderline >240 mg/dL High Risk Triglyceride [Mass/Vol] 247 mg/dL <199 [facility] Work Phone: Comment on above: The drugs N-Acetylcy steine and Metamizole may falsely depress this assay.Serum Triglycerides Reference Interval Normal <150 mg/dL Borderline high 150 - 199 mg/dL High 200 - 499 mg/dL Very High > or = 500 mg/dL No Panel Informationon 01-04 [place] Level 0.50 mmol/L 0.60-1.20 [facility] Work Phone: Serum or plasma cholesterol in HDL measurement (mass/volume)on 01-04-2022 Cholesterol in HDL [Mass/Vol] 34 mg/dL >40 [facility] Work Phone: Comment on above: The drugs N-Acetylcy steine and Metamizole may falsely depress this assay. Reference Range HDL <40 mg/dL Low HDL Cholesterol HDL >or= 60 mg/dL High HDL Cholesterol Serum or plasma cholesterol in VLDL measurement (mass/volume)on 01-04-2022 Cholesterol in VLDL [Mass/Vol] 49 mg/dL 5-40 [facility] Work Phone: Serum or plasma low density lipoprotein (LDL) cholesterol measurement (mass/volume)on 01-04-2022 Cholesterol in LDL [Mass/Vol] 57 mg/dL 0-130 [facility] Work Phone: [phone] No Panel Informationon 12-07 [place] Level 0.50 mmol/L 0.60-1.20 [facility] Work Phone: Absolute lymphocyte counton 12-03-2021 Lymphocytes Auto (Unsp spec) [#/Vol] 2.02 10*3/uL 0.83-4.51 [facility] Work Phone: Basophil percentageon 2021 Basophils/100 WBC (Bld) 1.1 % 0-1 [facility] Work Phone: Chloride [Moles/Vol] 108 mmol/L 98-107 [facility] Work Phone: [phone] Eosinophils/100 WBC (Bld) 2.9 % 0-5 [facility] Work Phone: Glucose [Mass/Vol] 118 mg/dL 74-106 [facility] Work Phone: Comment on above: Fasting Glucose resu lt from 100 to 125 mg/dL suggests IMPAIRED HOMEOSTASIS per A.D.A. criteria. Neutrophils (Bld) [#/Vol] 4.3 10*3/uL 2.0-7.7 [facility] Work Phone: Neutrophils/100 WBC (Bld) 57.2 % 47-70 [facility] Work Phone: Potassium [Moles/Vol] 3.9 mmol/L 3.5-5.1 [facility] Work Phone: Sodium [Moles/Vol] 140 mmol/L 136-145 [facility] Work Phone: WBC (Bld) [#/Vol] 7.5 10*3/uL 4.4-11.0 [facility] Work Phone: Bilirubin Test strip Ql (U)o n 12-03-2021 Bilirubin Ql (U) Negative Negative [facility] Work Phone: Blood erythrocytes count (nu mber/volume)on 12-03-2021 RBC (Bld) [#/Vol] 4.70 10*6/uL 4.6-6.2 [facility] Work Phone: Blood hemoglobin measurement (mass/volume)on 12-03-2021 Hemoglobin (Bld) [Mass/Vol] 13.7 g/dL 13.0-16.5 [facility] Work Phone: Blood lymphocytes/100 leukoc yteson 12-03-2021 Lymphocytes/100 WBC (Bld) 27.1 % 19-41 [facility] Work Phone: Blood monocytes/100 leukocyt eson 12-03-2021 Monocytes/100 WBC (Bld) 11.0 % 0-10 [facility] Work Phone: Blood platelet mean volumeon 12-03-2021 Platelet mean volume (Bld) [Entitic vol] 9.1 fL 6.2-12.0 [facility] Work Phone: Culture, urineon 12-03-2021 Bacteria identified Cx Nom (U) Culture exhibits no growth. [facility] Work Phone: Determination of erythrocyte mean corpuscular volume (MCV)on 12-03-2021 MCV (RBC) [Entitic vol] 88.9 fL 80-94 [facility] Work Phone: Hematocrit Auto (Bld) [Volum e fraction]on 12-03-2021 Hematocrit (Bld) [Volume fraction] 41.8 % 40-54 [facility] Work Phone: Ketones Test strip Ql (U)on 12-03-2021 Ketones Ql (U) Negative Negative [facility] Work Phone: Laboratory - Chemistry and C hemistry - challengeon 12-03-2021 CO2 [Moles/Vol] 27.0 mmol/L 21.0-32.0 [facility] Work Phone: Urea nitrogen/Creatinine [Mass ratio] 9.7 mg/mg 10-20 [facility] Work Phone: Laboratory - Hematology and Cell countson 12-03-2021 Erythrocyte distribution width (RBC) [Entitic vol] 43.4 fL 35.1-43.9 [facility] Work Phone: Erythrocyte distribution width (RBC) [Ratio] 13.2 % 11.6-14.6 [facility] Work Phone: Immature granulocytes/100 WBC (Bld) 0.700 % 0.0-0.9 [facility] Work Phone: Comment on above: IG% - Immature Granu locytes (promyelocytes, myelocytes and metamyelocytes) > 1% indicates that a LEFT SHIFT is Present. MCH (RBC) [Entitic mass] 29.1 pg 27.0-32.0 [facility] Work Phone: Nucleated RBC/100 WBC (Bld) [Ratio] 0 % 0-5 [facility] Work Phone: MCHC Auto (RBC) [Mass/Vol]on 12-03-2021 MCHC (RBC) [Mass/Vol] 32.8 g/dL 32-36 [facility] Work Phone: Nitrite Test strip Ql (U)on 12-03-2021 Nitrite Ql (U) Negative Negative [facility] Work Phone: No Panel Informationon 12-03 Estimated GFR (MDRD) Amer 43 mL/min >60 [facility] Work Phone: Comment on above: GFR Calc Estimated GFR (MDRD) Non-Af Amer 35 mL/min >60 [facility] Work Phone: Comment on above: Non- GFR Calc [place] Level 0.50 mmol/L 0.60-1.20 [facility] Work Phone: Platelets bldon 12-03-2021 Platelets (Bld) [#/Vol] 230 10*3/uL 150-450 [facility] Work Phone: Protein Test strip Ql (U)on 12-03-2021 Protein Ql (U) Negative Negative [facility] Work Phone: Serum or plasma calcium you urement (mass/volume)on 12-03-2021 Calcium [Mass/Vol] 8.9 mg/dL 8.5-10.1 [facility] Work Phone: Serum or plasma creatinine m easurement (mass/volume)on 12-03-2021 Creatinine [Mass/Vol] 2.07 mg/dL 0.70-1.30 [facility] ster [facility] Work Phone: Comment on above: The validity of the calculated GFR & GFRAA in patients over 70 years has not been determined. Clinical correlation is essential. Serum or plasma urea nitroge n measurement (mass/volume)on 12-03-2021 Urea nitrogen [Mass/Vol] 20 mg/dL 7-18 [facility] Work Phone: Thin prep Papanicolaou smear with manual screeningon 12-03-2021 Thin prep Papanicolaou smear with manual screening 5 5-15 [facility] Work Phone: Urine blood detectionon 11-15 RBC Ql (U) Negative Negative [facility] Work Phone: Urine clarityon 12-03-2021 Clarity (U) Clear Clear [facility] Work Phone: Urine color determinationon 12-03-2021 Color (U) Yellow Yellow [facility] Work Phone: Urine glucose detectionon Glucose Ql (U) Normal mg/dl Normal [facility] Work Phone: Urine leukocyte esterase det ection by dipstickon 12-03-2021 Leukocyte esterase Test strip Ql (U) Negative Negative [facility] Work Phone: Urine pHon 12-03-2021 pH (U) 7.0 [pH] [facility] Work Phone: Urine specific gravity measu rementon 12-03-2021 Specific gravity (U) [Rel density] 1.010 [facility] Work Phone: Urobilinogen Auto test strip Ql (U)on 12-03-2021 Urobilinogen Ql (U) Normal mg/dl Normal [facility] Work Phone: No Panel Informationon 11-09 [place] Level 0.40 mmol/L 0.60-1.20 [facility] Work Phone: Absolute lymphocyte counton 11-05-2021 Lymphocytes Auto (Unsp spec) [#/Vol] 2.12 10*3/uL 0.83-4.51 [facility] Work Phone: Basophil percentageon 2020 Chloride [Moles/Vol] 110 mmol/L 98-107 [facility] Work Phone: Eosinophils/100 WBC (Bld) 2.8 % 0-5 [facility] Work Phone: Glucose [Mass/Vol] 132 mg/dL 74-106 [facility] Work Phone: Comment on above: Fasting Glucose resu lt greater than or equal to 126 mg/dL suggests DIABETES MELLITUS per A.D.A. criteria.Please note revised GLUCOSE reference range effective 2017. Neutrophils (Bld) [#/Vol] 5.7 10*3/uL 2.0-7.7 [facility] Work Phone: Potassium [Moles/Vol] 4.0 mmol/L 3.5-5.1 [facility] Work Phone: Sodium [Moles/Vol] 143 mmol/L 136-145 [facility] Work Phone: WBC (Bld) [#/Vol] 9.3 10*3/uL 4.4-11.0 [facility] Work Phone: Basophil percentage 10-25 SEEN /hpf [facility] Work Phone: Bilirubin Test strip Ql (U)o n 11-05-2021 Bilirubin Ql (U) Negative Negative [facility] Work Phone: Blood erythrocytes count (nu mber/volume)on 11-05-2021 RBC (Bld) [#/Vol] 4.57 10*6/uL 4.6-6.2 [facility] Work Phone: Blood hemoglobin measurement (mass/volume)on 11-05-2021 Hemoglobin (Bld) [Mass/Vol] 13.4 g/dL 13.0-16.5 [facility] Work Phone: Blood lymphocytes/100 leukoc yteson 11-05-2021 Lymphocytes/100 WBC (Bld) 22.9 % 19-41 [facility] Work Phone: Blood monocytes/100 leukocyt eson 11-05-2021 Monocytes/100 WBC (Bld) 10.9 % 0-10 [facility] Work Phone: Blood platelet mean volumeon 11-05-2021 Platelet mean volume (Bld) [Entitic vol] 9.1 fL 6.2-12.0 [facility] Work Phone: Culture, urineon 11-05-2021 Bacteria identified Cx Nom (U) Streptococcus mitis/ oralis [facility] Work Phone: Determination of erythrocyte mean corpuscular volume (MCV)on 11-05-2021 MCV (RBC) [Entitic vol] 89.5 fL 80-94 [facility] Work Phone: Hematocrit Auto (Bld) [Volum e fraction]on 11-05-2021 Hematocrit (Bld) [Volume fraction] 40.9 % 40-54 [facility] Work Phone: Ketones Test strip Ql (U)on 11-05-2021 Ketones Ql (U) Negative Negative [facility] Work Phone: Laboratory - Chemistry and C hemistry - challengeon 11-05-2021 CO2 [Moles/Vol] 28.0 mmol/L 21.0-32.0 [facility] Work Phone: Urea nitrogen/Creatinine [Mass ratio] 11.6 mg/mg 10-20 [facility] Work Phone: Laboratory - Hematology and Cell countson 11-05-2021 Basophils/100 WBC (Unsp spec) 0.9 % 0-1 [facility] Work Phone: Erythrocyte distribution width (RBC) [Entitic vol] 43.5 fL 35.1-43.9 [facility] Work Phone: Erythrocyte distribution width (RBC) [Ratio] 13.3 % 11.6-14.6 [facility] Work Phone: Immature granulocytes/100 WBC (Bld) 0.600 % 0.0-0.9 [facility] Work Phone: Comment on above: IG% - Immature Granu locytes (promyelocytes, myelocytes and metamyelocytes) > 1% indicates that a LEFT SHIFT is Present. MCH (RBC) [Entitic mass] 29.3 pg 27.0-32.0 [facility] Work Phone: Neutrophils/100 WBC (Bld) 61.9 % 47-70 [facility] Work Phone: Nucleated RBC/100 WBC (Bld) [Ratio] 0 % 0-5 [facility] Work Phone: MCHC Auto (RBC) [Mass/Vol]on 11-05-2021 MCHC (RBC) [Mass/Vol] 32.8 g/dL 32-36 [facility] Work Phone: Mucus LM Ql (Urine sed)on Mucus Ql (Urine sed) 0 SEEN /hpf [facility] Work Phone: Nitrite Test strip Ql (U)on 11-05-2021 Nitrite Ql (U) Negative Negative [facility] Work Phone: No Panel Informationon 11-05 Estimated GFR (MDRD) Amer 47 mL/min >60 [facility] Work Phone: Comment on above: GFR Calc Estimated GFR (MDRD) Non-Af Amer 39 mL/min >60 [facility] Work Phone: Comment on above: Non- GFR Calc Platelets bldon 11-05-2021 Platelets (Bld) [#/Vol] 218 10*3/uL 150-450 [facility] Work Phone: Protein Test strip Ql (U)on 11-05-2021 Protein Ql (U) 15 mg/dl Negative [facility] Work Phone: Serum or plasma albumin you urement (mass/volume)on 11-05-2021 Albumin [Mass/Vol] 2.7 g/dL 3.2-5.0 [facility] Work Phone: Serum or plasma calcium you urement (mass/volume)on 11-05-2021 Calcium [Mass/Vol] 8.7 mg/dL 8.5-10.1 [facility] Work Phone: Serum or plasma creatinine m easurement (mass/volume)on 11-05-2021 Creatinine [Mass/Vol] 1.90 mg/dL 0.70-1.30 [facility] Work Phone: Comment on above: The validity of the calculated GFR & GFRAA in patients over 70 years has not been determined. Clinical correlation is essential. Serum or plasma urea nitroge n measurement (mass/volume)on 11-05-2021 Urea nitrogen [Mass/Vol] 22 mg/dL 7-18 [facility] Work Phone: Squamous epithelial cells de tection in urine sediment by light microscopyon 11-05-2021 Epithelial cells.squamous LM Ql (Urine sed) 0-5 SEEN /hpf [facility] Work Phone: Thin prep Papanicolaou smear with manual screeningon 11-05-2021 Thin prep Papanicolaou smear with manual screening 5 5-15 [facility] Work Phone: Urine blood detectionon 10-15 RBC Ql (U) Negative Negative [facility] Work Phone: RBC Ql (U) 0 SEEN /hpf [facility] Work Phone: Urine clarityon 11-05-2021 Clarity (U) Sl. Cloudy Clear [facility] Work Phone: Urine color determinationon 11-05-2021 Color (U) Yellow Yellow [facility] Work Phone: Urine creatinine measurement (mass/volume)on 11-05-2021 Creatinine (U) [Mass/Vol] 169.00 mg/dL NO RANGE EST. [facility] Work Phone: Urine glucose detectionon Glucose Ql (U) Normal mg/dl Normal [facility] Work Phone: Urine leukocyte esterase det ection by dipstickon 11-05-2021 Leukocyte esterase Test strip Ql (U) 100 /ul Negative [facility] Work Phone: Urine pHon 11-05-2021 pH (U) 6.0 [pH] [facility] Work Phone: Urine protein measurement (m ass/volume)on 11-05-2021 Protein (U) [Mass/Vol] 21.0 mg/dL 0.0-11.8 [facility] Work Phone: Urine protein/creatinine mas s ratioon 11-05-2021 Protein/Creatinine (U) [Mass ratio] 124 mg/g CRE 0-200 [facility] Work Phone: Urine sediment bacteria coun t by microscopy (number/high power field)on 11-05-2021 Bacteria LM.HPF (Urine sed) [#/Area] 0 /[HPF] None Seen [facility] Work Phone: Urine specific gravity measu rementon 11-05-2021 Specific gravity (U) [Rel density] 1.020 [facility] Work Phone: Urobilinogen Auto test strip Ql (U)on 11-05-2021 Urobilinogen Ql (U) Normal mg/dl Normal [facility] Work Phone: CBC Auto Differentialon 10-15 Erythrocyte distribution width (RBC) [Ratio] 14.5 % 11.5 - 14.5 % [place] Hematocrit (Bld) [Volume fraction] 42.1 % 40 - 52 % [place] Hemoglobin (Bld) [Mass/Vol] 13.8 g/dL 13 - 18 g/dL [place] Interpretation and review of laboratory results Abnormal [place] MCH (RBC) [Entitic mass] 28.8 pg 26 - 34 pg [place] MCHC (RBC) [Mass/Vol] 32.7 % 32 - 36 % [place] MCV (RBC) [Entitic vol] 88.1 fL 80 - 98 fL [place] Platelet mean volume (Bld) [Entitic vol] 7.9 fL 7.4 - 10.4 fL [place] Platelets (Bld) [#/Vol] 356 10*3/uL 140 - 440 10*3/uL [place] RBC (Bld) [#/Vol] 4.78 10*6/uL 4.4 - 5.9 10*6/uL [place] WBC (Bld) [#/Vol] 16.4 10*3/uL High 3.6 - 10.7 10*3/uL [place] Test Performed by [facility], [address] [place], [place] [address] [place] Comp Panel with Mg Reflexon 11-04-2020 Calcium [Mass/Vol] 8.9 mg/dL Normal 8.4-10.4 [facility] Comment on above: Performed By: #### H EMOG, CMP3M, CRP2, LDH3, FIBGN, DDI2, APTT, FERR3 #### [facility] [address] [place] [address] ALP [Catalytic activity/Vol] 83 U/L Normal 38-126 [facility] Comment on above: Performed By: #### H EMOG, CMP3M, CRP2, LDH3, FIBGN, DDI2, APTT, FERR3 #### [facility] [address] [place] [address] ALT [Catalytic activity/Vol] 133 U/L High 0-49 [facility] Comment on above: Result Comment: The ALT test is performed by an updated assay method. Please note that the reference intervals have been changed and are now sex specific. Performed By: #### H EMOG, CMP3M, CRP2, LDH3, FIBGN, DDI2, APTT, FERR3 #### [facility] [address] [place] [address] Anion gap [Moles/Vol] 9 Normal [facility] Comment on above: Performed By: #### H EMOG, CMP3M, CRP2, LDH3, FIBGN, DDI2, APTT, FERR3 #### [facility] [address] [place] [address] AST [Catalytic activity/Vol] 39 U/L Normal 15-46 [facility] Comment on above: Performed By: #### H EMOG, CMP3M, CRP2, LDH3, FIBGN, DDI2, APTT, FERR3 #### [facility] [address] [place] [address] Bilirubin [Mass/Vol] 0.6 mg/dL Normal 0.2-1.3 [facility] Comment on above: Performed By: #### H EMOG, CMP3M, CRP2, LDH3, FIBGN, DDI2, APTT, FERR3 #### [facility] [address] [place] [address] CO2 [Moles/Vol] 20 mmol/L Low 22-30 [facility] Comment on above: Performed By: #### H EMOG, CMP3M, CRP2, LDH3, FIBGN, DDI2, APTT, FERR3 #### [facility] [address] [place] [address] Glucose [Mass/Vol] 140 mg/dL High 70-100 [facility] Comment on above: Performed By: #### H EMOG, CMP3M, CRP2, LDH3, FIBGN, DDI2, APTT, FERR3 #### [facility] [address] [place] [address] Protein [Mass/Vol] 6.1 g/dL Low 6.3-8.2 [facility] Comment on above: Performed By: #### H EMOG, CMP3M, CRP2, LDH3, FIBGN, DDI2, APTT, FERR3 #### [facility] [address] [place] [address] Urea nitrogen [Mass/Vol] 41 mg/dL High 7-20 [facility] Comment on above: Performed By: #### H EMOG, CMP3M, CRP2, LDH3, FIBGN, DDI2, APTT, FERR3 #### [facility] [address] [place] [address] Creatinine [Mass/Vol] 1.84 mg/dL High 0.52-1.25 [facility] Comment on above: Performed By: #### H EMOG, CMP3M, CRP2, LDH3, FIBGN, DDI2, APTT, FERR3 #### [facility] [address] [place] [address] GFR/1.73 sq M predicted among blacks MDRD (S/P/Bld) [Vol rate/Area] 46.0 mL/min/{1.73_m2} Abnormal >60 [facility] Comment on above: Performed By: #### H EMOG, CMP3M, CRP2, LDH3, FIBGN, DDI2, APTT, FERR3 #### [facility] [address] [place] [address] GFR/1.73 sq M predicted among non-blacks MDRD (S/P/Bld) [Vol rate/Area] 39.7 mL/min/{1.73_m2} Abnormal >60 [facility] Comment on above: Result Comment: [...] CRP2, LDH3, FIBGN, DDI2, APTT, FERR3 #### [facility] [address] [place] [address] Albumin [Mass/Vol] 3.4 g/dL Low 3.5-5.0 [facility] Comment on above: Performed By: #### H EMOG, CMP3M, CRP2, LDH3, FIBGN, DDI2, APTT, FERR3 #### [facility] [address] [place] [address] Chloride [Moles/Vol] 106 mmol/L Normal 98-107 [facility] Comment on above: Performed By: #### H EMOG, CMP3M, CRP2, LDH3, FIBGN, DDI2, APTT, FERR3 #### [facility] [address] [place] [address] Potassium [Moles/Vol] 4.3 mmol/L Normal 3.5-5.1 [facility] Comment on above: Performed By: #### H EMOG, CMP3M, CRP2, LDH3, FIBGN, DDI2, APTT, FERR3 #### [facility] [address] [place] [address] Sodium [Moles/Vol] 134 mmol/L Low 135-145 [facility] Comment on above: Performed By: #### H EMOG, CMP3M, CRP2, LDH3, FIBGN, DDI2, APTT, FERR3 #### [facility] [address] [place] [address] Comprehensive Metabolic Pane l w/ Reflex to MGon 11-04-2020 Albumin [Mass/Vol] 3.4 g/dL Low 3.5 - 5 g/dL [place] ALP [Catalytic activity/Vol] 83 U/L 38 - 126 U/L [place] ALT [Catalytic activity/Vol] 133 U/L High 0 - 49 U/L [place] Comment on above: The ALT test is perf ormed by an updated assay method. Please note that the reference intervals have been changed and are now sex specific. Anion gap [Moles/Vol] 9 mmol/L [place] AST [Catalytic activity/Vol] 39 U/L 15 - 46 U/L [place] Bilirubin Ql (U) 0.6 mg/dL 0.2 - 1.3 mg/dL [place] Calcium [Mass/Vol] 8.9 mg/dL 8.4 - 10. 4 mg/dL [place] Chloride [Moles/Vol] 106 mmol/L 98 - 10 7 mmol/L [place] CO2 [Moles/Vol] 20 mmol/L Low 22 - 30 mmol/L [place] Creatinine [Mass/Vol] 1.84 mg/dL High 0.52 - 1.25 mg/dL [place] EGFR IF NonAfrican [place]inese 39.7 mL/min Abnormal >60 [place] Comment on above: KDIGO guidelines pro [...] (S/P/Bld) [Vol rate/Area] 46.0 mL/min/{1.73_m2} Abnormal >60 [place] Glucose [Mass/Vol] 140 mg/dL High 70 - 100 mg/dL [place] Interpretation and review of laboratory results Abnormal [place] Potassium [Moles/Vol] 4.3 mmol/L 3.5 - 5.1 mmol/L [place] Protein [Mass/Vol] 6.1 g/dL Low 6.3 - 8.2 g/dL [place] Sodium [Moles/Vol] 134 mmol/L Low 135 - 145 mmol/L [place] Urea nitrogen [Mass/Vol] 41 mg/dL High 7 - 20 mg/dL [place] Test Performed by [facility], [address] [place] [address] [place] Hemogram w/ Autodiffon 11-04 Erythrocyte distribution width (RBC) [Ratio] 14.5 % Normal 11.5-14.5 [facility] Comment on above: Performed By: #### H EMOG, CMP3M, CRP2, LDH3, FIBGN, DDI2, APTT, FERR3 #### [facility] [address] [place] [address] Hematocrit (Bld) [Volume fraction] 42.1 % Normal 40.0-52.0 [facility] Comment on above: Performed By: #### H EMOG, CMP3M, CRP2, LDH3, FIBGN, DDI2, APTT, FERR3 #### [facility] [address] [place] [address] Hemoglobin (Bld) [Mass/Vol] 13.8 g/dL Normal 13.0-18.0 [facility] Comment on above: Performed By: #### H EMOG, CMP3M, CRP2, LDH3, FIBGN, DDI2, APTT, FERR3 #### [facility] [address] [place] [address] MCH (RBC) [Entitic mass] 28.8 pg Normal 26.0-34.0 [facility] Comment on above: Performed By: #### H EMOG, CMP3M, CRP2, LDH3, FIBGN, DDI2, APTT, FERR3 #### [facility] [address] [place] [address] MCHC (RBC) [Mass/Vol] 32.7 % Normal 32.0-36.0 [facility] Comment on above: Performed By: #### H EMOG, CMP3M, CRP2, LDH3, FIBGN, DDI2, APTT, FERR3 #### [facility] [address] [place] [address] MCV (RBC) [Entitic vol] 88.1 fL Normal 80.0-98.0 [facility] Comment on above: Performed By: #### H EMOG, CMP3M, CRP2, LDH3, FIBGN, DDI2, APTT, FERR3 #### [facility] [address] [place] [address] Platelet mean volume (Bld) [Entitic vol] 7.9 fL Normal 7.4-10.4 [facility] Comment on above: Performed By: #### H EMOG, CMP3M, CRP2, LDH3, FIBGN, DDI2, APTT, FERR3 #### [facility] [address] [place] [address] Platelets (Bld) [#/Vol] 356 10*3/uL Normal 140-440 [facility] Comment on above: Performed By: #### H EMOG, CMP3M, CRP2, LDH3, FIBGN, DDI2, APTT, FERR3 #### [facility] [address] [place] [address] RBC (Bld) [#/Vol] 4.78 10*6/uL Normal 4.40-5.90 [facility] Comment on above: Performed By: #### H EMOG, CMP3M, CRP2, LDH3, FIBGN, DDI2, APTT, FERR3 #### [facility] [address] [place] [address] WBC (Bld) [#/Vol] 16.4 10*3/uL High 3.6-10.7 [facility] Comment on above: Performed By: #### H EMOG, CMP3M, CRP2, LDH3, FIBGN, DDI2, APTT, FERR3 #### [facility] [address] [place] [address] Manual Diffon 11-04-2020 Abs Baso Cnt 0.0 10*3/uL Normal 0.0-0.2 [facility] Comment on above: Performed By: #### H EMOG, CMP3M, CRP2, LDH3, FIBGN, DDI2, APTT, FERR3 #### [facility] [address] [place] [address] Abs Eosin Cnt 0.0 10*3/uL Normal 0.0-0.5 [facility] Comment on above: Performed By: #### H EMOG, CMP3M, CRP2, LDH3, FIBGN, DDI2, APTT, FERR3 #### [facility] [address] [place] [address] Abs Lymph Cnt 1.0 10*3/uL Low 1.1-4.5 [facility] Comment on above: Performed By: #### H EMOG, CMP3M, CRP2, LDH3, FIBGN, DDI2, APTT, FERR3 #### [facility] [address] [place] [address] Abs Monocyte Cnt 1.3 10*3/uL High 0.2-1.1 [facility] Comment on above: Performed By: #### H EMOG, CMP3M, CRP2, LDH3, FIBGN, DDI2, APTT, FERR3 #### [facility] [address] [place] [address] Abs Neutrophile Cnt 13.1 10*3/uL High 2.2-8.2 [facility] Comment on above: Performed By: #### H EMOG, CMP3M, CRP2, LDH3, FIBGN, DDI2, APTT, FERR3 #### [facility] [address] [place] [address] Anisocytosis Ql (Bld) Slight Normal [facility] Comment on above: Performed By: #### H EMOG, CMP3M, CRP2, LDH3, FIBGN, DDI2, APTT, FERR3 #### [facility] [address] [place] [address] Bands 2 % Normal 0-3 [facility] Comment on above: Performed By: #### H EMOG, CMP3M, CRP2, LDH3, FIBGN, DDI2, APTT, FERR3 #### [facility] [address] [place] [address] Basophils 0 % Normal 0-[address] [facility] Comment on above: Performed By: #### H EMOG, CMP3M, CRP2, LDH3, FIBGN, DDI2, APTT, FERR3 #### [facility] [address] [place] [address] [place] Cells Slight Normal [facility] Comment on above: Performed By: #### H EMOG, CMP3M, CRP2, LDH3, FIBGN, DDI2, APTT, FERR3 #### [facility] [address] [place] [address] Cells counted 100 Normal [facility] Comment on above: Performed By: #### H EMOG, CMP3M, CRP2, LDH3, FIBGN, DDI2, APTT, FERR3 #### [facility] [address] [place] [address] Eosinophils 0 % Low 1-6 [facility] Comment on above: Performed By: #### H EMOG, CMP3M, CRP2, LDH3, FIBGN, DDI2, APTT, FERR3 #### [facility] [address] [place] [address] Lymphocytes 6 % Low 20-40 [facility] Comment on above: Performed By: #### H EMOG, CMP3M, CRP2, LDH3, FIBGN, DDI2, APTT, FERR3 #### [facility] [address] [place] [address] Metamyelocytes 5 % Abnormal <1 [facility] Comment on above: Performed By: #### H EMOG, CMP3M, CRP2, LDH3, FIBGN, DDI2, APTT, FERR3 #### [facility] [address] [place] [address] Monocytes 8 % Normal 2-10 [facility] Comment on above: Performed By: #### H EMOG, CMP3M, CRP2, LDH3, FIBGN, DDI2, APTT, FERR3 #### [facility] [address] [place] [address] Myelocytes 1 % Abnormal <1 [facility] Comment on above: Performed By: #### H EMOG, CMP3M, CRP2, LDH3, FIBGN, DDI2, APTT, FERR3 #### [facility] [address] [place] [address] Poikilocytosis Slight Normal [facility] Comment on above: Performed By: #### H EMOG, CMP3M, CRP2, LDH3, FIBGN, DDI2, APTT, FERR3 #### [facility] [address] [place] [address] RBC morphology finding Nom (Bld) ABNORMAL Normal [facility] Comment on above: Performed By: #### H EMOG, CMP3M, CRP2, LDH3, FIBGN, DDI2, APTT, FERR3 #### [facility] [address] [place] [address] Seg Neutrophils 78 % Normal 40-80 [facility] Comment on above: Performed By: #### H EMOG, CMP3M, CRP2, LDH3, FIBGN, DDI2, APTT, FERR3 #### [facility] [address] [place] [address] Manual Differentialon 2019 Absolute Baso # 0.0 10*3/uL 0 - 0.2 10*3/uL [place] Absolute Eos # 0.0 10*3/uL 0 - 0.5 10*3/uL [place] Absolute Lymph # 1.0 10*3/uL Low 1.1 - 4.5 10*3/uL [place] Absolute Mobile # 1.3 10*3/uL High 0.2 - 1.1 10*3/uL [place] Absolute Neut # 13.1 10*3/uL High 2.2 - 8.2 10*3/uL [place] Anisocytosis Ql (Bld) Slight [facility], [place] Bands 2 % 0 - 3 % [place] Basophils 0 % 0 - 2 % [facility], [place] Danya Cells Slight [place] Eosinophils 0 % Low 1 - 6 % [place] Interpretation and review of laboratory results Abnormal [place] Lymphocytes 6 % Low 20 - 40 % [place] Metamyelocytes 5 % Abnormal <1 [place] Monocytes 8 % 2 - 10 % [place] Myelocytes 1 % Abnormal <1 [place] Poikilocytes Slight [place] RBC morphology finding Nom (Bld) ABNORMAL [place] Seg Neutrophils 78 % 40 - 80 % [place] TOTAL CELLS COUNTED 100 [place] Test Performed by [facility] [employer] [facility], [address], [place] [address] [place] Add On Lab Teston 11-03-2020 Sodium [Moles/Vol] Accepted [place] Comment on above: Specimen available & acceptable for analysis. Test Performed by [facility], [address] [place] [address] [place] Add on test from HISon 11-03 Add on test from HIS Accepted Normal [facility] [employer] [facility] Comment on above: Result Comment: Spec imen available & acceptable for analysis. Performed By: #### H EMOG, CMP3M, CRP2, LDH3, FIBGN, DDI2, APTT, FERR3 #### [facility] [address] [place] [address] CBC Auto Differentialon 10-15 Erythrocyte distribution width (RBC) [Ratio] 14.3 % 11.5 - 14.5 % [place] Hematocrit (Bld) [Volume fraction] 39.0 % Low 40 - 52 % [place] Hemoglobin (Bld) [Mass/Vol] 12.8 g/dL Low 13 - 18 g/dL [place] Interpretation and review of laboratory results Abnormal [place] MCH (RBC) [Entitic mass] 28.7 pg 26 - 34 pg [place] MCHC (RBC) [Mass/Vol] 32.8 % 32 - 36 % [place] MCV (RBC) [Entitic vol] 87.6 fL 80 - 98 fL [place] Platelet mean volume (Bld) [Entitic vol] 7.5 fL 7.4 - 10.4 fL [place] Platelets (Bld) [#/Vol] 332 10*3/uL 140 - 440 10*3/uL [place] RBC (Bld) [#/Vol] 4.45 10*6/uL 4.4 - 5.9 10*6/uL [place] WBC (Bld) [#/Vol] 15.6 10*3/uL High 3.6 - 10.7 10*3/uL [place] Test Performed by [facility], [address], [place] [address] [place] CR Chest PA/LATon 11-03-2020 CR Chest PA/LAT Patient Name: REGGIE LEÓN Diagnostic Radiology ACCESSION EXAM DATE/TIME PROCEDURE ORDERING PROVIDER [id number] 11/03/2020 10:20 EST CR Chest PA and LAT MD DIAZ IMOLA KINGA CPT code 11368 Reason For Exam (CR Chest PA and [...] Transcribed Date and Time: 11/03/2020 10:59 Normal [facility] Comp Panel with Mg Reflexon 11-03-2020 Calcium [Mass/Vol] 9.0 mg/dL Normal 8.4-10.4 [facility] Comment on above: Performed By: #### H EMOG, CMP3M, CRP2, LDH3, FIBGN, DDI2, APTT, FERR3 #### [facility] [address] [place] [address] Anion gap [Moles/Vol] 5 Normal [facility] Comment on above: Performed By: #### H EMOG, CMP3M, CRP2, LDH3, FIBGN, DDI2, APTT, FERR3 #### [facility] [address] [place] [address] Bilirubin [Mass/Vol] 0.7 mg/dL Normal 0.2-1.3 [facility] Comment on above: Performed By: #### H EMOG, CMP3M, CRP2, LDH3, FIBGN, DDI2, APTT, FERR3 #### [facility] [address] [place] [address] Creatinine [Mass/Vol] 2.08 mg/dL High 0.52-1.25 [facility] Comment on above: Performed By: #### H EMOG, CMP3M, CRP2, LDH3, FIBGN, DDI2, APTT, FERR3 #### [facility] [address] [place] [address] GFR/1.73 sq M predicted among blacks MDRD (S/P/Bld) [Vol rate/Area] 39.6 mL/min/{1.73_m2} Abnormal >60 [facility] Comment on above: Performed By: #### H EMOG, CMP3M, CRP2, LDH3, FIBGN, DDI2, APTT, FERR3 #### [facility] [address] [place] [address] GFR/1.73 sq M predicted among non-blacks MDRD (S/P/Bld) [Vol rate/Area] 34.2 mL/min/{1.73_m2} Abnormal >60 [facility] Comment on above: Result Comment: [...] CRP2, LDH3, FIBGN, DDI2, APTT, FERR3 #### [facility] [address] [place] [address] Albumin [Mass/Vol] 3.4 g/dL Low 3.5-5.0 [facility] Comment on above: Performed By: #### H EMOG, CMP3M, CRP2, LDH3, FIBGN, DDI2, APTT, FERR3 #### [facility] [address] [place] [address] Chloride [Moles/Vol] 107 mmol/L Normal 98-107 [facility] Comment on above: Performed By: #### H EMOG, CMP3M, CRP2, LDH3, FIBGN, DDI2, APTT, FERR3 #### [facility] [address] [place] [address] Potassium [Moles/Vol] 3.8 mmol/L Normal 3.5-5.1 [facility] Comment on above: Performed By: #### H EMOG, CMP3M, CRP2, LDH3, FIBGN, DDI2, APTT, FERR3 #### [facility] [address] [place] [address] Sodium [Moles/Vol] 134 mmol/L Low 135-145 [facility] Comment on above: Performed By: #### H EMOG, CMP3M, CRP2, LDH3, FIBGN, DDI2, APTT, FERR3 #### [facility] [address] [place] [address] ALP [Catalytic activity/Vol] 83 U/L Normal 38-126 [facility] [place] Comment on above: Performed By: #### H EMOG, CMP3M, CRP2, LDH3, FIBGN, DDI2, APTT, FERR3 #### [facility] [address] [place] [address] ALT [Catalytic activity/Vol] 175 U/L High 0-49 [place] Comment on above: Result Comment: The ALT test is performed by an updated assay method. Please note that the reference intervals have been changed and are now sex specific. Performed By: #### H EMOG, CMP3M, CRP2, LDH3, FIBGN, DDI2, APTT, FERR3 #### [facility] [address] [place] [address] The ALT test is perf ormed by an updated assay method. Please note that the reference intervals have been changed and are now sex specific. AST [Catalytic activity/Vol] 63 U/L High 15-46 [place], [place] Comment on above: Performed By: #### H EMOG, CMP3M, CRP2, LDH3, FIBGN, DDI2, APTT, FERR3 #### [facility] [address] [place] [address] CO2 [Moles/Vol] 21 mmol/L Low 22-30 [place], [place] Comment on above: Performed By: #### H EMOG, CMP3M, CRP2, LDH3, FIBGN, DDI2, APTT, FERR3 #### [facility] [address] [place] [address] Glucose [Mass/Vol] 139 mg/dL High 70-100 [place], [place] Comment on above: Performed By: #### H EMOG, CMP3M, CRP2, LDH3, FIBGN, DDI2, APTT, FERR3 #### [facility] [address] [place] [address] Protein [Mass/Vol] 5.9 g/dL Low 6.3-8.2 [place], [place] Comment on above: Performed By: #### H EMOG, CMP3M, CRP2, LDH3, FIBGN, DDI2, APTT, FERR3 #### [facility] [address] [place] [address] Urea nitrogen [Mass/Vol] 43 mg/dL High 7-20 [place], [place] Comment on above: Performed By: #### H EMOG, CMP3M, CRP2, LDH3, FIBGN, DDI2, APTT, FERR3 #### [facility] [address] [place] [address] Comprehensive Metabolic Pane l w/ Reflex to MGon 11-03-2020 Albumin [Mass/Vol] 3.4 g/dL Low 3.5 - 5 g/dL [place], [place] Anion gap [Moles/Vol] 5 mmol/L [place] Bilirubin Ql (U) 0.7 mg/dL 0.2 - 1.3 mg/dL [place] Calcium [Mass/Vol] 9.0 mg/dL 8.4 - 10. 4 mg/dL [place] Chloride [Moles/Vol] 107 mmol/L 98 - 10 7 mmol/L [place] Creatinine [Mass/Vol] 2.08 mg/dL High 0.52 - 1.25 mg/dL [place] EGFR IF NonAfrican Beninese 34.2 mL/min Abnormal >60 [place] Comment on above: KDIGO guidelines pro [...] (S/P/Bld) [Vol rate/Area] 39.6 mL/min/{1.73_m2} Abnormal >60 [place] Interpretation and review of laboratory results Abnormal [place] Potassium [Moles/Vol] 3.8 mmol/L 3.5 - 5.1 mmol/L [place] Sodium [Moles/Vol] 134 mmol/L Low 135 - 145 mmol/L [place] Test Performed by [facility], [address] [place] [address] [place] Hemogram w/ Autodiffon 11-03 Erythrocyte distribution width (RBC) [Ratio] 14.3 % Normal 11.5-14.5 [facility] Comment on above: Performed By: #### H EMOG, CMP3M, CRP2, LDH3, FIBGN, DDI2, APTT, FERR3 #### [facility] [address] [place] [address] Hematocrit (Bld) [Volume fraction] 39.0 % Low 40.0-52.0 [facility] Comment on above: Performed By: #### H EMOG, CMP3M, CRP2, LDH3, FIBGN, DDI2, APTT, FERR3 #### [facility] [address] [place] [address] Hemoglobin (Bld) [Mass/Vol] 12.8 g/dL Low 13.0-18.0 [facility] Comment on above: Performed By: #### H EMOG, CMP3M, CRP2, LDH3, FIBGN, DDI2, APTT, FERR3 #### [facility] [address] [place] [address] MCH (RBC) [Entitic mass] 28.7 pg Normal 26.0-34.0 [facility] Comment on above: Performed By: #### H EMOG, CMP3M, CRP2, LDH3, FIBGN, DDI2, APTT, FERR3 #### [facility] [address] [place] [address] MCHC (RBC) [Mass/Vol] 32.8 % Normal 32.0-36.0 [facility] Comment on above: Performed By: #### H EMOG, CMP3M, CRP2, LDH3, FIBGN, DDI2, APTT, FERR3 #### [facility] [address] [place] [address] MCV (RBC) [Entitic vol] 87.6 fL Normal 80.0-98.0 [facility] Comment on above: Performed By: #### H EMOG, CMP3M, CRP2, LDH3, FIBGN, DDI2, APTT, FERR3 #### [facility] [address] [place] [address] Platelet mean volume (Bld) [Entitic vol] 7.5 fL Normal 7.4-10.4 [facility] Comment on above: Performed By: #### H EMOG, CMP3M, CRP2, LDH3, FIBGN, DDI2, APTT, FERR3 #### [facility] [address] [place] [address] Platelets (Bld) [#/Vol] 332 10*3/uL Normal 140-440 [facility] Comment on above: Performed By: #### H EMOG, CMP3M, CRP2, LDH3, FIBGN, DDI2, APTT, FERR3 #### [facility] [address] [place] [address] RBC (Bld) [#/Vol] 4.45 10*6/uL Normal 4.40-5.90 [facility] Comment on above: Performed By: #### H EMOG, CMP3M, CRP2, LDH3, FIBGN, DDI2, APTT, FERR3 #### [facility] [address] [place] [address] WBC (Bld) [#/Vol] 15.6 10*3/uL High 3.6-10.7 [facility] Comment on above: Performed By: #### H EMOG, CMP3M, CRP2, LDH3, FIBGN, DDI2, APTT, FERR3 #### [facility] [address] [place] [address] Manual Diffon 11-03-2020 Abs Lymph Cnt 2.0 10*3/uL Normal 1.1-4.5 [facility] Comment on above: Performed By: #### H EMOG, CMP3M, CRP2, LDH3, FIBGN, DDI2, APTT, FERR3 #### [facility] [address] [place] [address] Abs Monocyte Cnt 2.2 10*3/uL High 0.2-1.1 [facility] Comment on above: Performed By: #### H EMOG, CMP3M, CRP2, LDH3, FIBGN, DDI2, APTT, FERR3 #### [facility] [address] [place] [address] Abs Neutrophile Cnt 11.4 10*3/uL High 2.2-8.2 [facility] Comment on above: Performed By: #### H EMOG, CMP3M, CRP2, LDH3, FIBGN, DDI2, APTT, FERR3 #### [facility] [address] [place] [address] Anisocytosis Ql (Bld) Slight Normal [facility] Comment on above: Performed By: #### H EMOG, CMP3M, CRP2, LDH3, FIBGN, DDI2, APTT, FERR3 #### [facility] [address] [place] [address] Bands 4 % High 0-3 [facility] Comment on above: Performed By: #### H EMOG, CMP3M, CRP2, LDH3, FIBGN, DDI2, APTT, FERR3 #### [facility] [address] [place] [address] Danya Cells Slight Normal [facility] Comment on above: Performed By: #### H EMOG, CMP3M, CRP2, LDH3, FIBGN, DDI2, APTT, FERR3 #### [facility] [address] [place] [address] Lymphocytes 13 % Low 20-40 [facility] Comment on above: Performed By: #### H EMOG, CMP3M, CRP2, LDH3, FIBGN, DDI2, APTT, FERR3 #### [facility] [address] [place] [address] Monocytes 14 % High 2-10 [facility] Comment on above: Performed By: #### H EMOG, CMP3M, CRP2, LDH3, FIBGN, DDI2, APTT, FERR3 #### [facility] [address] [place] [address] NRBC 1 /100{WBCs} High -1-0 [facility] Comment on above: Result Comment: Newb orn (<60 days) 1-10 Adult <1 Performed By: #### H EMOG, CMP3M, CRP2, LDH3, FIBGN, DDI2, APTT, FERR3 #### [facility] [address] [place] [address] RBC morphology finding Nom (Bld) ABNORMAL Normal [facility] Comment on above: Performed By: #### H EMOG, CMP3M, CRP2, LDH3, FIBGN, DDI2, APTT, FERR3 #### [facility] [address] [place] [address] Seg Neutrophils 69 % Normal 40-80 [facility] Comment on above: Performed By: #### H EMOG, CMP3M, CRP2, LDH3, FIBGN, DDI2, APTT, FERR3 #### [facility] [address] [place] [address] Tear Drop Forms Slight Normal [facility] Comment on above: Performed By: #### H EMOG, CMP3M, CRP2, LDH3, FIBGN, DDI2, APTT, FERR3 #### [facility] [address] [place] [address] Abs Baso Cnt 0.0 10*3/uL Normal 0.0-0.2 [facility] Comment on above: Performed By: #### H EMOG, CMP3M, CRP2, LDH3, FIBGN, DDI2, APTT, FERR3 #### [facility] [address] [place] [address] Abs Eosin Cnt 0.0 10*3/uL Normal 0.0-0.5 [facility] Comment on above: Performed By: #### H EMOG, CMP3M, CRP2, LDH3, FIBGN, DDI2, APTT, FERR3 #### [facility] [address] [place] [address] Basophils 0 % Normal 0-2 [facility] Comment on above: Performed By: #### H EMOG, CMP3M, CRP2, LDH3, FIBGN, DDI2, APTT, FERR3 #### [facility] [address] [place] [address] Cells counted 100 Normal [facility] Comment on above: Performed By: #### H EMOG, CMP3M, CRP2, LDH3, FIBGN, DDI2, APTT, FERR3 #### [facility] [employer] [facility] [address] [place] [address] Eosinophils 0 % Low 1-6 [facility] Comment on above: Performed By: #### H EMOG, CMP3M, CRP2, LDH3, FIBGN, DDI2, APTT, FERR3 #### [facility] [employer] [facility] [address] [place] [address] Manual Differentialon 2019 Absolute Baso # 0.0 10*3/uL 0 - 0.2 10*3/uL [facility] [place] Absolute Eos # 0.0 10*3/uL 0 - 0.5 10*3/uL [facility] [place] Absolute Lymph # 2.0 10*3/uL 1.1 - 4.5 10*3/uL [facility] [place] Absolute Mobile # 2.2 10*3/uL High 0.2 - 1.1 10*3/uL [facility] [place] Absolute Neut # 11.4 10*3/uL High 2.2 - 8.2 10*3/uL [facility] [place] [place] Anisocytosis Ql (Bld) Slight [facility], [place] Bands 4 % High 0 - 3 % [facility] [place] [place] Basophils 0 % 0 - 2 % [facility] [place] [place] Cells Slight [facility] [place] [place] Eosinophils 0 % Low 1 - 6 % [facility] [place] [place] Interpretation and review of laboratory results Abnormal [facility] [place] [place] Lymphocytes 13 % Low 20 - 40 % [facility] [place] [place] Monocytes 14 % High 2 - 10 % [facility] [place] [place] nRBC 1 /100{WBCs} High -1 - 0 /100{WBCs} [facility] [place] [place] Comment on above: (<60 days) 1 -10 Adult <1 RBC morphology finding Nom (Bld) ABNORMAL [facility] [place] [place] Seg Neutrophils 69 % 40 - 80 % [facility] [place] [place] Tear Drop Cells Slight [facility] [place] [place] TOTAL CELLS COUNTED 100 [place], [place] Test Performed by [facility] [employer] [facility], [address] [place], [place] [address] [place] Procalcitoninon 11-03-2020 Procalcitonin < 0.10 Normal <0.10 [facility] Comment on above: Performed By: #### H EMOG, CMP3M, CRP2, LDH3, FIBGN, DDI2, APTT, FERR3 #### [facility] [address] [place] [address] Procalcitonin <0.10 <0.10 ng/mL [place] Sodium [Moles/Vol] See Below [place] Comment on above: PCT <0.50 = Low risk of severe sepsis and/or septic shock. PCT >2.00 = High risk of severe sepsis and/or septic shock. Test Performed by [facility], [address] [place] [id number] [place], [place] Interpretation See Below Normal [facility] Comment on above: Result Comment: PCT <0.50 = Low risk of severe sepsis and/or septic shock. PCT >2.00 = High risk of severe sepsis and/or septic shock. Performed By: #### H EMOG, CMP3M, CRP2, LDH3, FIBGN, DDI2, APTT, FERR3 #### [facility] [address] [place] [address] XR CHEST (2 VW)on 11-03-2020 Michel, [facility] Incoming Radiology Results From [facility] - 11/03/2020 10:59 AM EST Patient Name: REGGIE LEÓN Diagnostic Radiology ACCESSION EXAM DATE/TIME PROCEDURE ORDERING PROVIDER [id number] 11/03/2020 10:20 EST CR Chest PA & LAT MD EMILY, FARRUKH MCCORMICK CPT code 82698 Reason For Exam (CR Chest PA & [...] JEFFREY Transcribed Date and Time: 11/03/2020 10:59 [place] Patient Name: [id number] Radiology ACCESSION EXAM DATE/TIME PROCEDURE ORDERING PROVIDER [id number] 11/03/2020 10:20 EST CR Chest PA & LAT MD EMILY, FARRUKH MCCORMICK CPT code 60745 Reason For Exam (CR Chest PA & [...] JEFFREY Transcribed Date and Time: 11/03/2020 10:59 [place] APTTon 11-02-2020 aPTT Coag (Bld) [Time] 30.4 s Normal 20.0-30.5 [facility] Comment on above: Result Comment: NOTE : The therapeutic time for Heparin anticoagulation, based on Xa activity inhibition, is an APTT of 46-80 seconds. Performed By: #### H EMOG, CMP3M, CRP2, LDH3, FIBGN, DDI2, APTT, FERR3 #### [facility] [address] [place] [address] aPTT Coag (Bld) [Time] 30.4 s 20 - 30.5 s [place], [place] Comment on above: NOTE: The therapeuti c time for Heparin anticoagulation, based on Xa activity inhibition, is an APTT of 46-80 seconds. C-Reactive Proteinon 020 CRP [Mass/Vol] 10.2 mg/L High 0.0-6.0 [facility] Comment on above: Result Comment: . Performed By: #### H EMOG, CMP3M, CRP2, LDH3, FIBGN, DDI2, APTT, FERR3 #### [facility] [address] [place] [address] CRP [Mass/Vol] 10.2 mg/L High 0 - 6 mg/L [place] Comment on above: . CBCon 11-02-2020 Erythrocyte distribution width (RBC) [Ratio] 14.2 % 11.5 - 14.5 % [place] Hematocrit (Bld) [Volume fraction] 39.5 % Low 40 - 52 % [place] Hemoglobin (Bld) [Mass/Vol] 13.2 g/dL 13 - 18 g/dL [place] Interpretation and review of laboratory results Abnormal [place] MCH (RBC) [Entitic mass] 29.4 pg 26 - 34 pg [place] MCHC (RBC) [Mass/Vol] 33.5 % 32 - 36 % [place] MCV (RBC) [Entitic vol] 87.8 fL 80 - 98 fL [place] Platelet mean volume (Bld) [Entitic vol] 7.6 fL 7.4 - 10.4 fL [place] Platelets (Bld) [#/Vol] 340 10*3/uL 140 - 440 10*3/uL [place] RBC (Bld) [#/Vol] 4.49 10*6/uL 4.4 - 5.9 10*6/uL [place] WBC (Bld) [#/Vol] 13.0 10*3/uL High 3.6 - 10.7 10*3/uL [place] Test Performed by [facility], [address], [place], [place] [address] [place] Comp Panel with Mg Reflexon 11-02-2020 ALT [Catalytic activity/Vol] 198 U/L High 0-49 [facility] Comment on above: Result Comment: The ALT test is performed by an updated assay method. Please note that the reference intervals have been changed and are now sex specific. Performed By: #### H EMOG, CMP3M, CRP2, LDH3, FIBGN, DDI2, APTT, FERR3 #### [facility] [address] [place] [address] Calcium [Mass/Vol] 8.8 mg/dL Normal 8.4-10.4 [facility] Comment on above: Performed By: #### H EMOG, CMP3M, CRP2, LDH3, FIBGN, DDI2, APTT, FERR3 #### [facility] [address] [place] [address] Glucose [Mass/Vol] 135 mg/dL High 70-100 [facility] Comment on above: Performed By: #### H EMOG, CMP3M, CRP2, LDH3, FIBGN, DDI2, APTT, FERR3 #### [facility] [address] [place] [address] ALP [Catalytic activity/Vol] 85 U/L Normal 38-126 [facility] Comment on above: Performed By: #### H EMOG, CMP3M, CRP2, LDH3, FIBGN, DDI2, APTT, FERR3 #### [facility] [address] [place] [address] Anion gap [Moles/Vol] 9 Normal [facility] Comment on above: Performed By: #### H EMOG, CMP3M, CRP2, LDH3, FIBGN, DDI2, APTT, FERR3 #### [facility] [address] [place] [address] AST [Catalytic activity/Vol] 104 U/L High 15-46 [facility] Comment on above: Performed By: #### H EMOG, CMP3M, CRP2, LDH3, FIBGN, DDI2, APTT, FERR3 #### [facility] [address] [place] [address] Bilirubin [Mass/Vol] 0.7 mg/dL Normal 0.2-1.3 [facility] Comment on above: Performed By: #### H EMOG, CMP3M, CRP2, LDH3, FIBGN, DDI2, APTT, FERR3 #### [facility] [address] [place] [address] CO2 [Moles/Vol] 18 mmol/L Low 22-30 [facility] Comment on above: Performed By: #### H EMOG, CMP3M, CRP2, LDH3, FIBGN, DDI2, APTT, FERR3 #### [facility] [address] [place] [address] Creatinine [Mass/Vol] 1.89 mg/dL High 0.52-1.25 [facility] Comment on above: Performed By: #### H EMOG, CMP3M, CRP2, LDH3, FIBGN, DDI2, APTT, FERR3 #### [facility] [address] [place] [address] GFR/1.73 sq M predicted among blacks MDRD (S/P/Bld) [Vol rate/Area] 44.5 mL/min/{1.73_m2} Abnormal >60 [facility] Comment on above: Performed By: #### H EMOG, CMP3M, CRP2, LDH3, FIBGN, DDI2, APTT, FERR3 #### [facility] [address] [place] [address] GFR/1.73 sq M predicted among non-blacks MDRD (S/P/Bld) [Vol rate/Area] 38.4 mL/min/{1.73_m2} Abnormal >60 [facility] Comment on above: Result Comment: [...] CRP2, LDH3, FIBGN, DDI2, APTT, FERR3 #### [facility] [address] [place] [address] Protein [Mass/Vol] 6.1 g/dL Low 6.3-8.2 [facility] Comment on above: Performed By: #### H EMOG, CMP3M, CRP2, LDH3, FIBGN, DDI2, APTT, FERR3 #### [facility] [address] [place] [address] Urea nitrogen [Mass/Vol] 35 mg/dL High 7-20 [facility] Comment on above: Performed By: #### H EMOG, CMP3M, CRP2, LDH3, FIBGN, DDI2, APTT, FERR3 #### [facility] [address] [place] [address] Potassium [Moles/Vol] 4.3 mmol/L Normal 3.5-5.1 [facility] Comment on above: Performed By: #### H EMOG, CMP3M, CRP2, LDH3, FIBGN, DDI2, APTT, FERR3 #### [facility] [address] [place] [address] Albumin [Mass/Vol] 3.3 g/dL Low 3.5-5.0 [facility] Comment on above: Performed By: #### H EMOG, CMP3M, CRP2, LDH3, FIBGN, DDI2, APTT, FERR3 #### [facility] [address] [place] [address] Chloride [Moles/Vol] 110 mmol/L High 98-107 [facility] Comment on above: Performed By: #### H EMOG, CMP3M, CRP2, LDH3, FIBGN, DDI2, APTT, FERR3 #### [facility] [address] [place] [address] Sodium [Moles/Vol] 137 mmol/L Normal 135-145 [facility] Comment on above: Performed By: #### H EMOG, CMP3M, CRP2, LDH3, FIBGN, DDI2, APTT, FERR3 #### [facility] [address] [place] [address] Comprehensive Metabolic Pane l w/ Reflex to MGon 11-02-2020 Albumin [Mass/Vol] 3.3 g/dL Low 3.5 - 5 g/dL [place] ALP [Catalytic activity/Vol] 85 U/L 38 - 126 U/L [place] ALT [Catalytic activity/Vol] 198 U/L High 0 - 49 U/L [place] Comment on above: The ALT test is perf ormed by an updated assay method. Please note that the reference intervals have been changed and are now sex specific. Anion gap [Moles/Vol] 9 mmol/L [place] AST [Catalytic activity/Vol] 104 U/L High 15 - 46 U/L [place] Bilirubin Ql (U) 0.7 mg/dL 0.2 - 1.3 mg/dL [place] Calcium [Mass/Vol] 8.8 mg/dL 8.4 - 10. 4 mg/dL [place] Chloride [Moles/Vol] 110 mmol/L High 98 - 10 7 mmol/L [place] CO2 [Moles/Vol] 18 mmol/L Low 22 - 30 mmol/L [place] Creatinine [Mass/Vol] 1.89 mg/dL High 0.52 - 1.25 mg/dL [place] EGFR IF NonAfrican [place]inese 38.4 mL/min Abnormal >60 [place] Comment on above: KDIGO guidelines pro [...] (S/P/Bld) [Vol rate/Area] 44.5 mL/min/{1.73_m2} Abnormal >60 [facility] [place] Glucose [Mass/Vol] 135 mg/dL High 70 - 100 mg/dL [facility] [place] [place] Potassium [Moles/Vol] 4.3 mmol/L 3.5 - 5.1 mmol/L [facility] [place] [place] Protein [Mass/Vol] 6.1 g/dL Low 6.3 - 8.2 g/dL [facility] [place] [place] Sodium [Moles/Vol] 137 mmol/L 135 - 145 mmol/L [facility] [place] [place] Urea nitrogen [Mass/Vol] 35 mg/dL High 7 - 20 mg/dL [facility] [place] [place] D-Dimer, Innovanceon -20-2 020 D-Dimer, Innovance 0.83 mg/L High 0.00-0.50 [facility] Comment on above: Result Comment: Inno quach D-Dimer values of <0.50 mg/L FEU can be used in combination with a pre-test probability model (e.g. Well's) to exclude pulmonary embolism (PE) disease, as well as an aid in the diagnosis of deep vein thrombosis (DVT). Performed By: #### H EMOG, CMP3M, CRP2, LDH3, FIBGN, DDI2, APTT, FERR3 #### [facility] [address] [place] [address] D-Dimer, Quantitativeon 12-2 0-2020 D-Dimer, Quant 0.83 mg/L High 0 - 0.5 mg/L [place], [place] Comment on above: [employer] D-Dimer va lues of <0.50 mg/L FEU can be used in combination with a pre-test probability model (e.g. Well's) to exclude pulmonary embolism (PE) disease, as well as an aid in the diagnosis of deep vein thrombosis (DVT). Interpretation and review of laboratory results Abnormal [place] Ferritinon 11-02-2020 Ferritin [Mass/Vol] 938 ng/mL High 18-464 [facility] Comment on above: Performed By: #### H EMOG, CMP3M, CRP2, LDH3, FIBGN, DDI2, APTT, FERR3 #### [facility] [address] [place] [address] Ferritin [Mass/Vol] 938 ng/mL High 18 - 464 ng/mL [place] Interpretation and review of laboratory results Abnormal [place] Test Performed by [facility], [address] [place] [address] [place] Fibrinogenon 11-02-2020 Fibrinogen 373 mg/dL Normal 200-400 [facility] Comment on above: Performed By: #### H EMOG, CMP3M, CRP2, LDH3, FIBGN, DDI2, APTT, FERR3 #### [facility] [address] [place] [address] Fibrinogen 373 mg/dL 200 - 400 mg/dL [place] Hemogramon 11-02-2020 Erythrocyte distribution width (RBC) [Ratio] 14.2 % Normal 11.5-14.5 [facility] Comment on above: Performed By: #### H EMOG, CMP3M, CRP2, LDH3, FIBGN, DDI2, APTT, FERR3 #### [facility] [address] [place] [address] Hematocrit (Bld) [Volume fraction] 39.5 % Low 40.0-52.0 [facility] Comment on above: Performed By: #### H EMOG, CMP3M, CRP2, LDH3, FIBGN, DDI2, APTT, FERR3 #### [facility] [address] [place] [address] Hemoglobin (Bld) [Mass/Vol] 13.2 g/dL Normal 13.0-18.0 [facility] Comment on above: Performed By: #### H EMOG, CMP3M, CRP2, LDH3, FIBGN, DDI2, APTT, FERR3 #### [facility] [address] [place] [address] MCH (RBC) [Entitic mass] 29.4 pg Normal 26.0-34.0 [facility] Comment on above: Performed By: #### H EMOG, CMP3M, CRP2, LDH3, FIBGN, DDI2, APTT, FERR3 #### [facility] [address] [place] [address] MCHC (RBC) [Mass/Vol] 33.5 % Normal 32.0-36.0 [facility] Comment on above: Performed By: #### H EMOG, CMP3M, CRP2, LDH3, FIBGN, DDI2, APTT, FERR3 #### [facility] [address] [place] [address] MCV (RBC) [Entitic vol] 87.8 fL Normal 80.0-98.0 [facility] Comment on above: Performed By: #### H EMOG, CMP3M, CRP2, LDH3, FIBGN, DDI2, APTT, FERR3 #### [facility] [address] [place] [address] Platelet mean volume (Bld) [Entitic vol] 7.6 fL Normal 7.4-10.4 [facility] Comment on above: Performed By: #### H EMOG, CMP3M, CRP2, LDH3, FIBGN, DDI2, APTT, FERR3 #### [facility] [address] [place] [address] Platelets (Bld) [#/Vol] 340 10*3/uL Normal 140-440 [facility] Comment on above: Performed By: #### H EMOG, CMP3M, CRP2, LDH3, FIBGN, DDI2, APTT, FERR3 #### [facility] [address] [place] [address] RBC (Bld) [#/Vol] 4.49 10*6/uL Normal 4.40-5.90 [facility] Comment on above: Performed By: #### H EMOG, CMP3M, CRP2, LDH3, FIBGN, DDI2, APTT, FERR3 #### [facility] [address] [place] [address] WBC (Bld) [#/Vol] 13.0 10*3/uL High 3.6-10.7 [facility] Comment on above: Performed By: #### H EMOG, CMP3M, CRP2, LDH3, FIBGN, DDI2, APTT, FERR3 #### [facility] [address] [place] [address] LDHon 11-02-2020 LDH 589 U/L High 120-246 [facility] Comment on above: Performed By: #### H EMOG, CMP3M, CRP2, LDH3, FIBGN, DDI2, APTT, FERR3 #### [facility] [address] [place] [address] Lactate Dehydrogenaseon 10-15 0-2020 LD 589 U/L High 120 - 246 U/L [place] Otheron 11-02-2020 Test Performed by [facility], [address] [place] [address] [place] Interpretation and review of laboratory results Abnormal [place] Test Performed by [facility], [address] [place] [address] [place] C-Reactive Proteinon 020 CRP [Mass/Vol] 14.1 mg/L High 0.0-6.0 [facility] Comment on above: Result Comment: . Performed By: #### H EMOG, CMP3M, CRP2, LDH3, FIBGN, DDI2, APTT, FERR3 #### [facility] [address] [place] [address] CRP [Mass/Vol] 14.1 mg/L High 0 - 6 mg/L [place], [place] Comment on above: . Interpretation and review of laboratory results Abnormal [place] Test Performed by [facility], [address] [place] [address] [place] Comp Panel with Mg Reflexon 11-01-2020 ALT [Catalytic activity/Vol] 173 U/L High 0-49 [facility] Comment on above: Result Comment: The ALT test is performed by an updated assay method. Please note that the reference intervals have been changed and are now sex specific. Performed By: #### H EMOG, CMP3M, CRP2, LDH3, FIBGN, DDI2, APTT, FERR3 #### [facility] [address] [place] [address] Calcium [Mass/Vol] 8.7 mg/dL Normal 8.4-10.4 [facility] [facility] Comment on above: Performed By: #### H EMOG, CMP3M, CRP2, LDH3, FIBGN, DDI2, APTT, FERR3 #### [facility] [address] [place] [address] ALP [Catalytic activity/Vol] 77 U/L Normal 38-126 [facility] Comment on above: Performed By: #### H EMOG, CMP3M, CRP2, LDH3, FIBGN, DDI2, APTT, FERR3 #### [facility] [address] [place] [address] Anion gap [Moles/Vol] 7 Normal [facility] Comment on above: Performed By: #### H EMOG, CMP3M, CRP2, LDH3, FIBGN, DDI2, APTT, FERR3 #### [facility] [address] [place] [address] AST [Catalytic activity/Vol] 135 U/L High 15-46 [facility] Comment on above: Performed By: #### H EMOG, CMP3M, CRP2, LDH3, FIBGN, DDI2, APTT, FERR3 #### [facility] [address] [place] [address] Bilirubin [Mass/Vol] 0.5 mg/dL Normal 0.2-1.3 [facility] Comment on above: Performed By: #### H EMOG, CMP3M, CRP2, LDH3, FIBGN, DDI2, APTT, FERR3 #### [facility] [address] [place] [address] CO2 [Moles/Vol] 18 mmol/L Low 22-30 [facility] Comment on above: Performed By: #### H EMOG, CMP3M, CRP2, LDH3, FIBGN, DDI2, APTT, FERR3 #### [facility] [address] [place] [address] Creatinine [Mass/Vol] 1.77 mg/dL High 0.52-1.25 [facility] Comment on above: Performed By: #### H EMOG, CMP3M, CRP2, LDH3, FIBGN, DDI2, APTT, FERR3 #### [facility] [address] [place] [address] GFR/1.73 sq M predicted among blacks MDRD (S/P/Bld) [Vol rate/Area] 48.2 mL/min/{1.73_m2} Abnormal >60 [facility] Comment on above: Performed By: #### H EMOG, CMP3M, CRP2, LDH3, FIBGN, DDI2, APTT, FERR3 #### [facility] [address] [place] [address] GFR/1.73 sq M predicted among non-blacks MDRD (S/P/Bld) [Vol rate/Area] 41.6 mL/min/{1.73_m2} Abnormal >60 [facility] Comment on above: Result Comment: [...] CRP2, LDH3, FIBGN, DDI2, APTT, FERR3 #### [facility] [address] [place] [address] Glucose [Mass/Vol] 134 mg/dL High 70-100 [facility] Comment on above: Performed By: #### H EMOG, CMP3M, CRP2, LDH3, FIBGN, DDI2, APTT, FERR3 #### [facility] [address] [place] [address] Protein [Mass/Vol] 5.6 g/dL Low 6.3-8.2 [facility] Comment on above: Performed By: #### H EMOG, CMP3M, CRP2, LDH3, FIBGN, DDI2, APTT, FERR3 #### [facility] [address] [place] [address] Urea nitrogen [Mass/Vol] 32 mg/dL High 7-20 [facility] Comment on above: Performed By: #### H EMOG, CMP3M, CRP2, LDH3, FIBGN, DDI2, APTT, FERR3 #### [facility] [address] [place] [address] Potassium [Moles/Vol] 4.2 mmol/L Normal 3.5-5.1 [facility] Comment on above: Performed By: #### H EMOG, CMP3M, CRP2, LDH3, FIBGN, DDI2, APTT, FERR3 #### [facility] [address] [place] [address] Sodium [Moles/Vol] 137 mmol/L Normal 135-145 [facility] Comment on above: Performed By: #### H EMOG, CMP3M, CRP2, LDH3, FIBGN, DDI2, APTT, FERR3 #### [facility] [address] [place] [address] Albumin [Mass/Vol] 3.1 g/dL Low 3.5-5.0 [facility] Comment on above: Performed By: #### H EMOG, CMP3M, CRP2, LDH3, FIBGN, DDI2, APTT, FERR3 #### [facility] [address] [place] [address] Chloride [Moles/Vol] 113 mmol/L High 98-107 [facility] Comment on above: Performed By: #### H EMOG, CMP3M, CRP2, LDH3, FIBGN, DDI2, APTT, FERR3 #### [facility] [address] [place] [address] Comprehensive Metabolic Pane l w/ Reflex to MGon 11-01-2020 Albumin [Mass/Vol] 3.1 g/dL Low 3.5 - 5 g/dL [place] ALP [Catalytic activity/Vol] 77 U/L 38 - 126 U/L [place] ALT [Catalytic activity/Vol] 173 U/L High 0 - 49 U/L [place] Comment on above: The ALT test is perf ormed by an updated assay method. Please note that the reference intervals have been changed and are now sex specific. Anion gap [Moles/Vol] 7 mmol/L [place], [place] AST [Catalytic activity/Vol] 135 U/L High 15 - 46 U/L [place] Bilirubin Ql (U) 0.5 mg/dL 0.2 - 1.3 mg/dL [place] Calcium [Mass/Vol] 8.7 mg/dL 8.4 - 10. 4 mg/dL [place] Chloride [Moles/Vol] 113 mmol/L High 98 - 10 7 mmol/L [place] CO2 [Moles/Vol] 18 mmol/L Low 22 - 30 mmol/L [place] Creatinine [Mass/Vol] 1.77 mg/dL High 0.52 - 1.25 mg/dL [place] EGFR IF NonAfrican [place]inese 41.6 mL/min Abnormal >60 [place] Comment on above: KDIGO guidelines pro [...] (S/P/Bld) [Vol rate/Area] 48.2 mL/min/{1.73_m2} Abnormal >60 [facility] [place] Glucose [Mass/Vol] 134 mg/dL High 70 - 100 mg/dL [facility] [place] [place] Potassium [Moles/Vol] 4.2 mmol/L 3.5 - 5.1 mmol/L [facility] [place] [place] Protein [Mass/Vol] 5.6 g/dL Low 6.3 - 8.2 g/dL [facility] [place] [place] Sodium [Moles/Vol] 137 mmol/L 135 - 145 mmol/L [facility] [place] [place] Urea nitrogen [Mass/Vol] 32 mg/dL High 7 - 20 mg/dL [place], [place] D-Dimer, Innovanceon 11-01-2 020 D-Dimer, Innovance 0.87 mg/L High 0.00-0.50 [facility] Comment on above: Result Comment: Inno quach D-Dimer values of <0.50 mg/L FEU can be used in combination with a pre-test probability model (e.g. Well's) to exclude pulmonary embolism (PE) disease, as well as an aid in the diagnosis of deep vein thrombosis (DVT). Performed By: #### H EMOG, CMP3M, CRP2, LDH3, FIBGN, DDI2, APTT, FERR3 #### [employer] [address] [place] [address] D-Dimer, Quantitativeon 10-14 D-Dimer, Quant 0.87 mg/L High 0 - 0.5 mg/L [place], [place] Comment on above: [employer] D-Dimer va lues of <0.50 mg/L FEU can be used in combination with a pre-test probability model (e.g. Well's) to exclude pulmonary embolism (PE) disease, as well as an aid in the diagnosis of deep vein thrombosis (DVT). EKG 12 Leadon 11-01-2020 Michel, [facility] Incoming Cardiology Results From [employer] - 11/01/2020 11:02 PM EST [facility] [employer] [facility] Test Date: 2020-10-31 Pat Name: Reggie León Department: 09 Room: 468 Gender: Cirilo Tax Accounting Assistant: Jean CarlosBulmaro : 1965 Requested By: FARRUKH DIAZ Order Number: [id number] Reading MD: Usama Johnston Intervals [place] Rate: 83 P: 21 MI: 192 QRS: -16 QRSD: 104 T: 28 QT: 404 QTc: 475 Interpretive Statements SINUS RHYTHM MULTIPLE VENTRICULAR PREMATURE COMPLEXES Electronically Signed On 11-01-2020 23:01:06 EST by Usama Nguyen [facility] [employer] [facility] Test Date: 2020-10-31 Pat Name: Reggie León Department: 09 Room: 468 Gender: M Tax Accounting Assistant: NYLA : 1965 Requested By: FARRUKH DIAZ Order Number: [id number] Reading MD: Usama Johnston Intervals [place] Rate: 83 P: 21 MI: 192 QRS: -16 QRSD: 104 T: 28 QT: 404 QTc: 475 Interpretive Statements SINUS RHYTHM MULTIPLE VENTRICULAR PREMATURE COMPLEXES Electronically Signed On 11-01-2020 23:01:06 EST by Usama Cedillo [facility] Center[facility] [place] Ferritinon 11-01-2020 Ferritin [Mass/Vol] 1020 ng/mL High 18-464 [facility] [employer] [facility] Comment on above: Performed By: #### H EMOG, CMP3M, CRP2, LDH3, FIBGN, DDI2, APTT, FERR3 #### [employer] [address] [place] [address] Ferritin [Mass/Vol] 1020 ng/mL High 18 - 464 ng/mL [facility] [place] Interpretation and review of laboratory results Abnormal [facility] [employer] Test Performed by [employer], [address], [place], [place] [address] [facility] [place] Fibrinogenon 11-01-2020 Fibrinogen 420 mg/dL High 200-400 [facility] [employer] [facility] Comment on above: Performed By: #### H EMOG, CMP3M, CRP2, LDH3, FIBGN, DDI2, APTT, FERR3 #### [facility] [address] [place] [address] Fibrinogen 420 mg/dL High 200 - 400 mg/dL [place] LDHon 11-01-2020 LDH 665 U/L High 120-246 [facility] Comment on above: Performed By: #### H EMOG, CMP3M, CRP2, LDH3, FIBGN, DDI2, APTT, FERR3 #### [facility] [address] [place] [address] Lactate Dehydrogenaseon 10-14 LD 665 U/L High 120 - 246 U/L [place] Otheron 11-01-2020 Interpretation and review of laboratory results Abnormal [place] Test Performed by [facility], [facility] [address] [place], [place] [address] [place] Interpretation and review of laboratory results Abnormal [place] Test Performed by [facility], [address] [place], [place] [address] [place] C-Reactive Proteinon 020 CRP [Mass/Vol] 19.2 mg/L High 0.0-6.0 [facility] Comment on above: Result Comment: . Performed By: #### H EMOG, CMP3M, CRP2, LDH3, FIBGN, DDI2, APTT, FERR3 #### [facility] [address] [place] [address] CRP [Mass/Vol] 19.2 mg/L High 0 - 6 mg/L [place] Comment on above: . CBCon 10-31-2020 Erythrocyte distribution width (RBC) [Ratio] 14.0 % 11.5 - 14.5 % [place] Hematocrit (Bld) [Volume fraction] 35.7 % Low 40 - 52 % [place] Hemoglobin (Bld) [Mass/Vol] 12.0 g/dL Low 13 - 18 g/dL [place] Interpretation and review of laboratory results Abnormal [place] MCH (RBC) [Entitic mass] 29.0 pg 26 - 34 pg [place] MCHC (RBC) [Mass/Vol] 33.7 % 32 - 36 % [place] MCV (RBC) [Entitic vol] 86.3 fL 80 - 98 fL [place], [place] Platelet mean volume (Bld) [Entitic vol] 7.5 fL 7.4 - 10.4 fL [place] Platelets (Bld) [#/Vol] 294 10*3/uL 140 - 440 10*3/uL [place] RBC (Bld) [#/Vol] 4.14 10*6/uL Low 4.4 - 5.9 10*6/uL [place] WBC (Bld) [#/Vol] 9.5 10*3/uL 3.6 - 10.7 10*3/uL [place] Test Performed by [facility], [address] [place] [address] [place] Comp Panel with Mg Reflexon 10-31-2020 ALT [Catalytic activity/Vol] 79 U/L High 0-49 [facility] Comment on above: Result Comment: The ALT test is performed by an updated assay method. Please note that the reference intervals have been changed and are now sex specific. Performed By: #### H EMOG, CMP3M, CRP2, LDH3, FIBGN, DDI2, APTT, FERR3 #### [facility] [address] [place] [address] Calcium [Mass/Vol] 8.7 mg/dL Normal 8.4-10.4 [facility] Comment on above: Performed By: #### H EMOG, CMP3M, CRP2, LDH3, FIBGN, DDI2, APTT, FERR3 #### [facility] [address] [place] [address] Glucose [Mass/Vol] 139 mg/dL High 70-100 [facility] Comment on above: Performed By: #### H EMOG, CMP3M, CRP2, LDH3, FIBGN, DDI2, APTT, FERR3 #### [facility] [address] [place] [address] Urea nitrogen [Mass/Vol] 30 mg/dL High 7-20 [facility] Comment on above: Performed By: #### H EMOG, CMP3M, CRP2, LDH3, FIBGN, DDI2, APTT, FERR3 #### [facility] [address] [place] [address] ALP [Catalytic activity/Vol] 69 U/L Normal 38-126 [facility] Comment on above: Performed By: #### H EMOG, CMP3M, CRP2, LDH3, FIBGN, DDI2, APTT, FERR3 #### [facility] [address] [place] [address] Anion gap [Moles/Vol] 7 Normal [facility] Comment on above: Performed By: #### H EMOG, CMP3M, CRP2, LDH3, FIBGN, DDI2, APTT, FERR3 #### [facility] [address] [place] [address] AST [Catalytic activity/Vol] 67 U/L High 15-46 [facility] Comment on above: Performed By: #### H EMOG, CMP3M, CRP2, LDH3, FIBGN, DDI2, APTT, FERR3 #### [facility] [address] [place] [address] Bilirubin [Mass/Vol] 0.4 mg/dL Normal 0.2-1.3 [facility] Comment on above: Performed By: #### H EMOG, CMP3M, CRP2, LDH3, FIBGN, DDI2, APTT, FERR3 #### [facility] [address] [place] [address] CO2 [Moles/Vol] 17 mmol/L Low 22-30 [facility] Comment on above: Performed By: #### H EMOG, CMP3M, CRP2, LDH3, FIBGN, DDI2, APTT, FERR3 #### [facility] [address] [place] [address] Creatinine [Mass/Vol] 1.84 mg/dL High 0.52-1.25 [facility] Comment on above: Performed By: #### H EMOG, CMP3M, CRP2, LDH3, FIBGN, DDI2, APTT, FERR3 #### [facility] [address] [place] [address] GFR/1.73 sq M predicted among blacks MDRD (S/P/Bld) [Vol rate/Area] 46.0 mL/min/{1.73_m2} Abnormal >60 [facility] Comment on above: Performed By: #### H EMOG, CMP3M, CRP2, LDH3, FIBGN, DDI2, APTT, FERR3 #### [facility] [address] [place] [address] GFR/1.73 sq M predicted among non-blacks MDRD (S/P/Bld) [Vol rate/Area] 39.7 mL/min/{1.73_m2} Abnormal >60 [facility] Comment on above: Result Comment: [...] CRP2, LDH3, FIBGN, DDI2, APTT, FERR3 #### [facility] [address] [place] [address] Protein [Mass/Vol] 5.3 g/dL Low 6.3-8.2 [facility] Comment on above: Performed By: #### H EMOG, CMP3M, CRP2, LDH3, FIBGN, DDI2, APTT, FERR3 #### [facility] [address] [place] [address] Albumin [Mass/Vol] 2.8 g/dL Low 3.5-5.0 [facility] Comment on above: Performed By: #### H EMOG, CMP3M, CRP2, LDH3, FIBGN, DDI2, APTT, FERR3 #### [facility] [address] [place] [address] Chloride [Moles/Vol] 112 mmol/L High 98-107 [facility] Comment on above: Performed By: #### H EMOG, CMP3M, CRP2, LDH3, FIBGN, DDI2, APTT, FERR3 #### [facility] [address] [place] [address] Sodium [Moles/Vol] 136 mmol/L Normal 135-145 [facility] Comment on above: Performed By: #### H EMOG, CMP3M, CRP2, LDH3, FIBGN, DDI2, APTT, FERR3 #### [facility] [address] [place] [address] Potassium [Moles/Vol] 3.8 mmol/L Normal 3.5-5.1 [place] Comment on above: Performed By: #### H EMOG, CMP3M, CRP2, LDH3, FIBGN, DDI2, APTT, FERR3 #### [facility] [address] [place] [address] Comprehensive Metabolic Pane l w/ Reflex to MGon 10-31-2020 Albumin [Mass/Vol] 2.8 g/dL Low 3.5 - 5 g/dL [place] ALP [Catalytic activity/Vol] 69 U/L 38 - 126 U/L [place] ALT [Catalytic activity/Vol] 79 U/L High 0 - 49 U/L [place] Comment on above: The ALT test is perf ormed by an updated assay method. Please note that the reference intervals have been changed and are now sex specific. Anion gap [Moles/Vol] 7 mmol/L [place] AST [Catalytic activity/Vol] 67 U/L High 15 - 46 U/L [place] Bilirubin Ql (U) 0.4 mg/dL 0.2 - 1.3 mg/dL [place] Calcium [Mass/Vol] 8.7 mg/dL 8.4 - 10. 4 mg/dL [place] Chloride [Moles/Vol] 112 mmol/L High 98 - 10 7 mmol/L [place] CO2 [Moles/Vol] 17 mmol/L Low 22 - 30 mmol/L [place] Creatinine [Mass/Vol] 1.84 mg/dL High 0.52 - 1.25 mg/dL [place] EGFR IF NonAfrican [place] 39.7 mL/min Abnormal >60 [place] Comment on above: KDIGO guidelines pro [...] (S/P/Bld) [Vol rate/Area] 46.0 mL/min/{1.73_m2} Abnormal >60 [place] Glucose [Mass/Vol] 139 mg/dL High 70 - 100 mg/dL [place] Protein [Mass/Vol] 5.3 g/dL Low 6.3 - 8.2 g/dL [place] Sodium [Moles/Vol] 136 mmol/L 135 - 145 mmol/L [place] Urea nitrogen [Mass/Vol] 30 mg/dL High 7 - 20 mg/dL [place] D-Dimer, Innov[employer] 12-18-2 020 D-Dimer, [employer] 0.96 mg/L High 0.00-0.50 [facility] [employer] [facility] Comment on above: Result Comment: Inno quach D-Dimer values of <0.50 mg/L FEU can be used in combination with a pre-test probability model (e.g. Well's) to exclude pulmonary embolism (PE) disease, as well as an aid in the diagnosis of deep vein thrombosis (DVT). Performed By: #### H EMOG, CMP3M, CRP2, LDH3, FIBGN, DDI2, APTT, FERR3 #### [facility] [employer] [facility] [address] [place] [address] D-Dimer, Quantitativeon 10-14 D-Dimer, Quant 0.96 mg/L High 0 - 0.5 mg/L [place] Comment on above: [employer] D-Dimer va lues of <0.50 mg/L FEU can be used in combination with a pre-test probability model (e.g. Well's) to exclude pulmonary embolism (PE) disease, as well as an aid in the diagnosis of deep vein thrombosis (DVT). Ferritinon 10-31-2020 Ferritin [Mass/Vol] 810 ng/mL High 18-464 [facility] Comment on above: Performed By: #### H EMOG, CMP3M, CRP2, LDH3, FIBGN, DDI2, APTT, FERR3 #### [facility] [address] [place] [address] Ferritin [Mass/Vol] 810 ng/mL High 18 - 464 ng/mL [place] Interpretation and review of laboratory results Abnormal [place] Test Performed by [facility], [address] [place] [address] [place] Fibrinogenon 10-31-2020 Fibrinogen 455 mg/dL High 200-400 [facility] Comment on above: Performed By: #### H EMOG, CMP3M, CRP2, LDH3, FIBGN, DDI2, APTT, FERR3 #### [facility] [address] [place] [address] Fibrinogen 455 mg/dL High 200 - 400 mg/dL [place] Hemogramon 10-31-2020 Erythrocyte distribution width (RBC) [Ratio] 14.0 % Normal 11.5-14.5 [facility] Comment on above: Performed By: #### H EMOG, CMP3M, CRP2, LDH3, FIBGN, DDI2, APTT, FERR3 #### [facility] [address] [place] [address] Hematocrit (Bld) [Volume fraction] 35.7 % Low 40.0-52.0 [facility] Comment on above: Performed By: #### H EMOG, CMP3M, CRP2, LDH3, FIBGN, DDI2, APTT, FERR3 #### [facility] [address] [place] [address] Hemoglobin (Bld) [Mass/Vol] 12.0 g/dL Low 13.0-18.0 [facility] Comment on above: Performed By: #### H EMOG, CMP3M, CRP2, LDH3, FIBGN, DDI2, APTT, FERR3 #### [facility] [address] [place] [address] MCH (RBC) [Entitic mass] 29.0 pg Normal 26.0-34.0 [facility] Comment on above: Performed By: #### H EMOG, CMP3M, CRP2, LDH3, FIBGN, DDI2, APTT, FERR3 #### [facility] [address] [place] [address] MCHC (RBC) [Mass/Vol] 33.7 % Normal 32.0-36.0 [facility] Comment on above: Performed By: #### H EMOG, CMP3M, CRP2, LDH3, FIBGN, DDI2, APTT, FERR3 #### [facility] [address] [place] [address] MCV (RBC) [Entitic vol] 86.3 fL Normal 80.0-98.0 [facility] Comment on above: Performed By: #### H EMOG, CMP3M, CRP2, LDH3, FIBGN, DDI2, APTT, FERR3 #### [facility] [address] [place] [address] Platelet mean volume (Bld) [Entitic vol] 7.5 fL Normal 7.4-10.4 [facility] Comment on above: Performed By: #### H EMOG, CMP3M, CRP2, LDH3, FIBGN, DDI2, APTT, FERR3 #### [facility] [address] [place] [address] Platelets (Bld) [#/Vol] 294 10*3/uL Normal 140-440 [facility] Comment on above: Performed By: #### H EMOG, CMP3M, CRP2, LDH3, FIBGN, DDI2, APTT, FERR3 #### [facility] [address] [place] [address] RBC (Bld) [#/Vol] 4.14 10*6/uL Low 4.40-5.90 [facility] Comment on above: Performed By: #### H EMOG, CMP3M, CRP2, LDH3, FIBGN, DDI2, APTT, FERR3 #### [facility] [address] [place] [address] WBC (Bld) [#/Vol] 9.5 10*3/uL Normal 3.6-10.7 [facility] Comment on above: Performed By: #### H EMOG, CMP3M, CRP2, LDH3, FIBGN, DDI2, APTT, FERR3 #### [facility] [address] [place] [address] LDHon 10-31-2020 LDH 572 U/L High 120-246 [facility] Comment on above: Performed By: #### H EMOG, CMP3M, CRP2, LDH3, FIBGN, DDI2, APTT, FERR3 #### [facility] [address] [place] [address] Lactate Dehydrogenaseon 10-14 LD 572 U/L High 120 - 246 U/L [facility] [place], [place] Otheron 10-31-2020 Interpretation and review of laboratory results Abnormal [facility] [place], [place] Test Performed by [facility], [facility] [address] [place] [address] [facility] [place], [place] Interpretation and review of laboratory results Abnormal [facility] [place] Test Performed by [facility], [facility] [address] [place], [place] [address] [place] APTTon 10-30-2020 aPTT Coag (Bld) [Time] 47.0 s High 20.0-30.5 [facility] Comment on above: Result Comment: NOTE : The therapeutic time for Heparin anticoagulation, based on Xa activity inhibition, is an APTT of 46-80 seconds. Performed By: #### H EMOG, CMP3M, CRP2, LDH3, FIBGN, DDI2, APTT, FERR3 #### [facility] [address] [place] [address] aPTT Coag (Bld) [Time] 47 s High 20 - 30.5 s [place], [place] Comment on above: NOTE: The therapeuti c time for Heparin anticoagulation, based on Xa activity inhibition, is an APTT of 46-80 seconds. C-Reactive Proteinon 020 CRP [Mass/Vol] 27.5 mg/L High 0.0-6.0 [facility] Comment on above: Result Comment: . Performed By: #### H EMOG, CMP3M, CRP2, LDH3, FIBGN, DDI2, APTT, FERR3 #### [facility] [address] [place] [address] CRP [Mass/Vol] 27.5 mg/L High 0 - 6 mg/L [place] Comment on above: . Comp Panel with Mg Reflexon 10-30-2020 ALT [Catalytic activity/Vol] 67 U/L High 0-49 [facility] Comment on above: Result Comment: The ALT test is performed by an updated assay method. Please note that the reference intervals have been changed and are now sex specific. Performed By: #### H EMOG, CMP3M, CRP2, LDH3, FIBGN, DDI2, APTT, FERR3 #### [facility] [address] [place] [address] Calcium [Mass/Vol] 8.6 mg/dL Normal 8.4-10.4 [facility] Comment on above: Performed By: #### H EMOG, CMP3M, CRP2, LDH3, FIBGN, DDI2, APTT, FERR3 #### [facility] [address] [place] [address] Glucose [Mass/Vol] 142 mg/dL High 70-100 [facility] Comment on above: Performed By: #### H EMOG, CMP3M, CRP2, LDH3, FIBGN, DDI2, APTT, FERR3 #### [facility] [address] [place] [address] Urea nitrogen [Mass/Vol] 30 mg/dL High 7-20 [facility] Comment on above: Performed By: #### H EMOG, CMP3M, CRP2, LDH3, FIBGN, DDI2, APTT, FERR3 #### [facility] [address] [place] [address] ALP [Catalytic activity/Vol] 75 U/L Normal 38-126 [facility] Comment on above: Performed By: #### H EMOG, CMP3M, CRP2, LDH3, FIBGN, DDI2, APTT, FERR3 #### [facility] [address] [place] [address] Anion gap [Moles/Vol] 8 Normal [facility] Comment on above: Performed By: #### H EMOG, CMP3M, CRP2, LDH3, FIBGN, DDI2, APTT, FERR3 #### [facility] [address] [place] [address] AST [Catalytic activity/Vol] 67 U/L High 15-46 [facility] Comment on above: Performed By: #### H EMOG, CMP3M, CRP2, LDH3, FIBGN, DDI2, APTT, FERR3 #### [facility] [address] [place] [address] Bilirubin [Mass/Vol] 0.3 mg/dL Normal 0.2-1.3 [facility] Comment on above: Performed By: #### H EMOG, CMP3M, CRP2, LDH3, FIBGN, DDI2, APTT, FERR3 #### [facility] [address] [place] [address] CO2 [Moles/Vol] 18 mmol/L Low 22-30 [facility] Comment on above: Performed By: #### H EMOG, CMP3M, CRP2, LDH3, FIBGN, DDI2, APTT, FERR3 #### [facility] [address] [place] [address] Creatinine [Mass/Vol] 2.01 mg/dL High 0.52-1.25 [facility] Comment on above: Performed By: #### H EMOG, CMP3M, CRP2, LDH3, FIBGN, DDI2, APTT, FERR3 #### [facility] [address] [place] [address] GFR/1.73 sq M predicted among blacks MDRD (S/P/Bld) [Vol rate/Area] 41.3 mL/min/{1.73_m2} Abnormal >60 [facility] Comment on above: Performed By: #### H EMOG, CMP3M, CRP2, LDH3, FIBGN, DDI2, APTT, FERR3 #### [facility] [address] [place] [address] GFR/1.73 sq M predicted among non-blacks MDRD (S/P/Bld) [Vol rate/Area] 35.6 mL/min/{1.73_m2} Abnormal >60 [facility] Comment on above: Result Comment: [...] CRP2, LDH3, FIBGN, DDI2, APTT, FERR3 #### [facility] [address] [place] [address] Protein [Mass/Vol] 5.7 g/dL Low 6.3-8.2 [facility] Comment on above: Performed By: #### H EMOG, CMP3M, CRP2, LDH3, FIBGN, DDI2, APTT, FERR3 #### [facility] [address] [place] [address] Potassium [Moles/Vol] 4.0 mmol/L Normal 3.5-5.1 [facility] Comment on above: Performed By: #### H EMOG, CMP3M, CRP2, LDH3, FIBGN, DDI2, APTT, FERR3 #### [facility] [address] [place] [address] Albumin [Mass/Vol] 2.9 g/dL Low 3.5-5.0 [facility] Comment on above: Performed By: #### H EMOG, CMP3M, CRP2, LDH3, FIBGN, DDI2, APTT, FERR3 #### [facility] [address] [place] [address] Chloride [Moles/Vol] 114 mmol/L High 98-107 [facility] Comment on above: Performed By: #### H EMOG, CMP3M, CRP2, LDH3, FIBGN, DDI2, APTT, FERR3 #### [facility] [address] [place] [address] Sodium [Moles/Vol] 140 mmol/L Normal 135-145 [facility] Comment on above: Performed By: #### H EMOG, CMP3M, CRP2, LDH3, FIBGN, DDI2, APTT, FERR3 #### [facility] [address] [place] [address] Comprehensive Metabolic Pane l w/ Reflex to MGon 10-30-2020 Albumin [Mass/Vol] 2.9 g/dL Low 3.5 - 5 g/dL [place] ALP [Catalytic activity/Vol] 75 U/L 38 - 126 U/L [place] ALT [Catalytic activity/Vol] 67 U/L High 0 - 49 U/L [place] Comment on above: The ALT test is perf ormed by an updated assay method. Please note that the reference intervals have been changed and are now sex specific. Anion gap [Moles/Vol] 8 mmol/L [place] AST [Catalytic activity/Vol] 67 U/L High 15 - 46 U/L [place] Bilirubin Ql (U) 0.3 mg/dL 0.2 - 1.3 mg/dL [place] Calcium [Mass/Vol] 8.6 mg/dL 8.4 - 10. 4 mg/dL [place] Chloride [Moles/Vol] 114 mmol/L High 98 - 10 7 mmol/L [place] CO2 [Moles/Vol] 18 mmol/L Low 22 - 30 mmol/L [place] Creatinine [Mass/Vol] 2.01 mg/dL High 0.52 - 1.25 mg/dL [place] EGFR IF NonAfrican [place]inese 35.6 mL/min Abnormal >60 [place] Comment on above: KDIGO guidelines pro [...] (S/P/Bld) [Vol rate/Area] 41.3 mL/min/{1.73_m2} Abnormal >60 [place] Glucose [Mass/Vol] 142 mg/dL High 70 - 100 mg/dL [place] Potassium [Moles/Vol] 4.0 mmol/L 3.5 - 5.1 mmol/L [place] Protein [Mass/Vol] 5.7 g/dL Low 6.3 - 8.2 g/dL [place] Sodium [Moles/Vol] 140 mmol/L 135 - 145 mmol/L [place] Urea nitrogen [Mass/Vol] 30 mg/dL High 7 - 20 mg/dL [place] D-Dimer, Innovanceon 020 D-Dimer, Innovance 0.89 mg/L High 0.00-0.50 [facility] Comment on above: Result Comment: Inno quach D-Dimer values of <0.50 mg/L FEU can be used in combination with a pre-test probability model (e.g. Well's) to exclude pulmonary embolism (PE) disease, as well as an aid in the diagnosis of deep vein thrombosis (DVT). Performed By: #### H EMOG, CMP3M, CRP2, LDH3, FIBGN, DDI2, APTT, FERR3 #### [facility] [employer] [facility] [address] [place] [address] D-Dimer, Quantitativeon 10-14 D-Dimer, Quant 0.89 mg/L High 0 - 0.5 mg/L [place] Comment on above: [employer] D-Dimer va lues of <0.50 mg/L FEU can be used in combination with a pre-test probability model (e.g. Well's) to exclude pulmonary embolism (PE) disease, as well as an aid in the diagnosis of deep vein thrombosis (DVT). Ferritinon 10-30-2020 Ferritin [Mass/Vol] 885 ng/mL High 18-464 [facility] Comment on above: Performed By: #### H EMOG, CMP3M, CRP2, LDH3, FIBGN, DDI2, APTT, FERR3 #### [facility] [employer] [facility] [address] [place] [address] Ferritin [Mass/Vol] 885 ng/mL High 18 - 464 ng/mL [place] Interpretation and review of laboratory results Abnormal [place] Test Performed by [facility], [address] [place] [address] [place] Fibrinogenon 10-30-2020 Fibrinogen 456 mg/dL High 200-400 [facility] Comment on above: Performed By: #### H EMOG, CMP3M, CRP2, LDH3, FIBGN, DDI2, APTT, FERR3 #### [facility] [address] [place] [address] Fibrinogen 456 mg/dL High 200 - 400 mg/dL [place] LDHon 10-30-2020 LDH 613 U/L High 120-246 [facility] Comment on above: Performed By: #### H EMOG, CMP3M, CRP2, LDH3, FIBGN, DDI2, APTT, FERR3 #### [facility] [address] [place] [address] Lactate Dehydrogenaseon 10-14 LD 613 U/L High 120 - 246 U/L [place] Otheron 10-30-2020 Interpretation and review of laboratory results Abnormal [place] Test Performed by [facility], [address] [place] [address] [place] Interpretation and review of laboratory results Abnormal [place] Test Performed by [facility], [address] [place] [address] [place] APTTon 10-29-2020 aPTT Coag (Bld) [Time] 35.1 s High 20.0-30.5 [facility] Comment on above: Result Comment: NOTE : The therapeutic time for Heparin anticoagulation, based on Xa activity inhibition, is an APTT of 46-80 seconds. Performed By: #### H EMOG, CMP3M, CRP2, LDH3, FIBGN, DDI2, APTT, FERR3 #### [facility] [address] [place] [address] aPTT Coag (Bld) [Time] 35.1 s High 20 - 30.5 s [place], [place] Comment on above: NOTE: The therapeuti c time for Heparin anticoagulation, based on Xa activity inhibition, is an APTT of 46-80 seconds. C-Reactive Proteinon 020 CRP [Mass/Vol] 34.9 mg/L High 0.0-6.0 [facility] Comment on above: Result Comment: . Performed By: #### H EMOG, CMP3M, CRP2, LDH3, FIBGN, DDI2, APTT, FERR3 #### [facility] [address] [place] [address] CRP [Mass/Vol] 34.9 mg/L High 0 - 6 mg/L [place] Comment on above: . CBCon 10-29-2020 Erythrocyte distribution width (RBC) [Ratio] 14.2 % 11.5 - 14.5 % [place] Hematocrit (Bld) [Volume fraction] 37.3 % Low 40 - 52 % [place] Hemoglobin (Bld) [Mass/Vol] 12.6 g/dL Low 13 - 18 g/dL [place] Interpretation and review of laboratory results Abnormal [place] MCH (RBC) [Entitic mass] 29.2 pg 26 - 34 pg [place] MCHC (RBC) [Mass/Vol] 33.7 % 32 - 36 % [place] MCV (RBC) [Entitic vol] 86.7 fL 80 - 98 fL [place] Platelet mean volume (Bld) [Entitic vol] 7.6 fL 7.4 - 10.4 fL [place] Platelets (Bld) [#/Vol] 255 10*3/uL 140 - 440 10*3/uL [place] RBC (Bld) [#/Vol] 4.30 10*6/uL Low 4.4 - 5.9 10*6/uL [place] WBC (Bld) [#/Vol] 7.8 10*3/uL 3.6 - 10.7 10*3/uL [place] Test Performed by [facility] [employer] [facility], [address], [place], [place] [address] [place] CBC auto differentialon 10-14 Absolute Baso # 0.0 10*3/uL 0 - 0.2 10*3/uL [place] Absolute Neut # 3.5 10*3/uL 1.8 - 7 10*3/uL [place] Basophils/100 WBC (Bld) 0.3 % 0 - 2 % [place] Eosinophils (Bld) [#/Vol] 0.0 10*3/uL 0 - 0.5 10*3/uL [place] Eosinophils/100 WBC (Bld) 0.0 % Low 1 - 6 % [place] Erythrocyte distribution width (RBC) [Ratio] 13.8 % 11.5 - 14.5 % [place] Granulocytes/100 WBC (Bld) 79.4 % 40 - 80 % [place] Hematocrit (Bld) [Volume fraction] 36.7 % Low 40 - 52 % [place] Hemoglobin (Bld) [Mass/Vol] 12.2 g/dL Low 13 - 18 g/dL [place] Interpretation and review of laboratory results Abnormal [place] Lymphocytes (Bld) [#/Vol] 0.4 10*3/uL Low 1 - 4.3 10*3/uL [place] Lymphocytes/100 WBC (Bld) 8.8 % Low 20 - 40 % [place] MCH (RBC) [Entitic mass] 29.1 pg 26 - 34 pg [place] MCHC (RBC) [Mass/Vol] 33.1 % 32 - 36 % [place] MCV (RBC) [Entitic vol] 87.8 fL 80 - 98 fL [place] Monocytes (Bld) [#/Vol] 0.5 10*3/uL 0 - 0.8 10*3/uL [place] Monocytes/100 WBC (Bld) 11.5 % High 2 - 10 % [place] Platelet mean volume (Bld) [Entitic vol] 7.9 fL 7.4 - 10.4 fL [place] Platelets (Bld) [#/Vol] 231 10*3/uL 140 - 440 10*3/uL [place] RBC (Bld) [#/Vol] 4.19 10*6/uL Low 4.4 - 5.9 10*6/uL [place] WBC (Bld) [#/Vol] 4.4 10*3/uL 3.6 - 10.7 10*3/uL [facility] [place], [place] Test Performed by [facility], [address] [place], [place], [place] [id number] [place] [address] COVID and Resp PCR Panelon 1 12-30-2019 COVID and Resp PCR Panel COVID and Resp PCR Panel --> Status: F NEGATIVE: No targets were detected by the [employer] Upper Respiratory Pathogens PCR Panel. _ Expected Result: Not Detected The [employer] Upper Respiratory Pathogens PCR Panel can detect [...] management decisions. This assay was developed by [employer] and distributed under an Emergency Use Authorization (EUA) granted by the FDA for the qualitative detection of SARS-CoV-2 nucleic acid. Provider and patient fact sheets can be found at https://www.fda.gov/m edia/320016/download and https://www.fda.gov/m edia/734730/download. Respiratory Pathogens PCR Panel. _ Expected Result: Not Detected The [employer] Upper Respiratory Pathogens PCR Panel can detect [...] management decisions. This assay was developed by [employer] and distributed under an Emergency Use Authorization (EUA) granted by the FDA for the qualitative detection of SARS-CoV-2 nucleic acid. Provider and patient fact sheets can be found at https://www.[facility].gov/m edia/073698/download and https://www.fda.gov/m edia/603635/download. Normal [facility] Comment on above: Performed By: #### H EMOG, CMP3M, CRP2, LDH3, FIBGN, DDI2, APTT, FERR3 #### [facility] [address] [place] [address] CTA CHEST W WO CONTRASTon Patient Name: REGGIE LEÓN Computed Tomography ACCESSION EXAM DATE/TIME PROCEDURE ORDERING PROVIDER [id number] 10/29/2020 16:29 EST CTA Chest w/ + w/o MD EMILY, FARRUKH MCCORMICK Contrast CPT code 61273 Q9967 Reason For Exam (CTA Chest w/ + w/o Contrast) Hypoxia and elevated D-dimer, possible COVID+ and PE? Report Reasons for examination: Hypoxia, elevated d-dimer, Covid 19. CT scan of the chest were performed with bolus contrast and high resolution scans for CT pulmonary angiographic study, with images post-processed by myself on [employer] workstation, with 3D - volume rendered CT [...] WILLIAM Transcribed Date and Time: 10/29/2020 4:51 [facility] [place] [place] Michel, [place] Incoming Radiology Results From [facility] - 10/29/2020 4:51 PM EST Patient Name: REGGIE LEÓN Computed Tomography ACCESSION EXAM DATE/TIME PROCEDURE ORDERING PROVIDER [id number] 10/29/2020 16:29 EST CTA Chest w/ + w/o MD EMILY, FARRUKH MCCORMICK Contrast CPT code 56334 Q9967 Reason For Exam (CTA Chest w/ + w/o Contrast) Hypoxia and elevated D-dimer, possible COVID+ and PE? Report Reasons for examination: Hypoxia, elevated d-dimer, Covid 19. CT scan of the chest were performed with bolus contrast and high resolution scans for CT pulmonary angiographic study, with images post-processed by myself on [employer] workstation, with 3D - volume rendered CT [...] WILLIAM Transcribed Date and Time: 10/29/2020 4:51 [facility] [place] [place] CTA Chest w/ + w/o Contrasto n 10-29-2020 CTA Chest w/ + w/o Contrast Patient Name: REGGIE LEÓN Computed Tomography ACCESSION EXAM DATE/TIME PROCEDURE ORDERING PROVIDER [id number] 10/29/2020 16:29 EST CTA Chest w/ + w/o MD EMILY, CINDYJAQUELINE ANNY Contrast CPT code 42297 Q9967 Reason For Exam (CTA Chest w/ + w/o Contrast) Hypoxia and elevated D-dimer, possible COVID+ and PE? Report Reasons for examination: Hypoxia, elevated d-dimer, Covid 19. CT scan of the chest were performed with bolus contrast and high resolution scans for CT pulmonary angiographic study, with images post-processed by myself on [employer] workstation, with 3D - volume rendered CT [...] Transcribed Date and Time: 10/29/2020 4:51 Normal [facility] Comp Panel with Mg Reflexon 10-29-2020 ALP [Catalytic activity/Vol] 71 U/L Normal 38-126 [facility] Comment on above: Performed By: #### H EMOG, CMP3M, CRP2, LDH3, FIBGN, DDI2, APTT, FERR3 #### [facility] [address] [place] [address] ALT [Catalytic activity/Vol] 67 U/L High 0-49 [facility] Comment on above: Result Comment: The ALT test is performed by an updated assay method. Please note that the reference intervals have been changed and are now sex specific. Performed By: #### H EMOG, CMP3M, CRP2, LDH3, FIBGN, DDI2, APTT, FERR3 #### [facility] [address] [place] [address] Anion gap [Moles/Vol] 7 Normal [facility] Comment on above: Performed By: #### H EMOG, CMP3M, CRP2, LDH3, FIBGN, DDI2, APTT, FERR3 #### [facility] [address] [place] [address] AST [Catalytic activity/Vol] 88 U/L High 15-46 [facility] Comment on above: Performed By: #### H EMOG, CMP3M, CRP2, LDH3, FIBGN, DDI2, APTT, FERR3 #### [facility] [address] [place] [address] Bilirubin [Mass/Vol] 0.6 mg/dL Normal 0.2-1.3 [facility] Comment on above: Performed By: #### H EMOG, CMP3M, CRP2, LDH3, FIBGN, DDI2, APTT, FERR3 #### [facility] [address] [place] [address] Calcium [Mass/Vol] 8.9 mg/dL Normal 8.4-10.4 [facility] Comment on above: Performed By: #### H EMOG, CMP3M, CRP2, LDH3, FIBGN, DDI2, APTT, FERR3 #### [facility] [address] [place] [address] CO2 [Moles/Vol] 18 mmol/L Low 22-30 [facility] Comment on above: Performed By: #### H EMOG, CMP3M, CRP2, LDH3, FIBGN, DDI2, APTT, FERR3 #### [facility] [address] [place] [address] Creatinine [Mass/Vol] 2.24 mg/dL High 0.52-1.25 [facility] Comment on above: Performed By: #### H EMOG, CMP3M, CRP2, LDH3, FIBGN, DDI2, APTT, FERR3 #### [facility] [address] [place] [address] GFR/1.73 sq M predicted among blacks MDRD (S/P/Bld) [Vol rate/Area] 36.2 mL/min/{1.73_m2} Abnormal >60 [facility] Comment on above: Performed By: #### H EMOG, CMP3M, CRP2, LDH3, FIBGN, DDI2, APTT, FERR3 #### [facility] [address] [place] [address] GFR/1.73 sq M predicted among non-blacks MDRD (S/P/Bld) [Vol rate/Area] 31.3 mL/min/{1.73_m2} Abnormal >60 [facility] Comment on above: Result Comment: [...] FIBGN, DDI2, APTT, FERR3 #### [facility] [employer] [facility] [address] [place] [address] Glucose [Mass/Vol] 132 mg/dL High 70-100 [facility] Comment on above: Performed By: #### H EMOG, CMP3M, CRP2, LDH3, FIBGN, DDI2, APTT, FERR3 #### [facility] [address] [place] [address] Protein [Mass/Vol] 6.0 g/dL Low 6.3-8.2 [facility] Comment on above: Performed By: #### H EMOG, CMP3M, CRP2, LDH3, FIBGN, DDI2, APTT, FERR3 #### [facility] [address] [place] [address] Urea nitrogen [Mass/Vol] 33 mg/dL High 7-20 [facility] Comment on above: Performed By: #### H EMOG, CMP3M, CRP2, LDH3, FIBGN, DDI2, APTT, FERR3 #### [facility] [address] [place] [address] Potassium [Moles/Vol] 3.9 mmol/L Normal 3.5-5.1 [facility] Comment on above: Performed By: #### H EMOG, CMP3M, CRP2, LDH3, FIBGN, DDI2, APTT, FERR3 #### [facility] [address] [place] [address] Albumin [Mass/Vol] 3.2 g/dL Low 3.5-5.0 [facility] Comment on above: Performed By: #### H EMOG, CMP3M, CRP2, LDH3, FIBGN, DDI2, APTT, FERR3 #### [facility] [address] [place] [address] Chloride [Moles/Vol] 112 mmol/L High 98-107 [facility] Comment on above: Performed By: #### H EMOG, CMP3M, CRP2, LDH3, FIBGN, DDI2, APTT, FERR3 #### [facility] [address] [place] [address] Sodium [Moles/Vol] 137 mmol/L Normal 135-145 [facility] Comment on above: Performed By: #### H EMOG, CMP3M, CRP2, LDH3, FIBGN, DDI2, APTT, FERR3 #### [facility] [address] [place] [address] ALP [Catalytic activity/Vol] 81 U/L Normal 38-126 [facility] Comment on above: Performed By: #### H EMOG, CMP3M, CRP2, LDH3, FIBGN, DDI2, APTT, FERR3 #### [facility] [address] [place] [address] ALT [Catalytic activity/Vol] 67 U/L High 0-49 [facility] Comment on above: Result Comment: The ALT test is performed by an updated assay method. Please note that the reference intervals have been changed and are now sex specific. Performed By: #### H EMOG, CMP3M, CRP2, LDH3, FIBGN, DDI2, APTT, FERR3 #### [facility] [address] [place] [address] Anion gap [Moles/Vol] 9 Normal [facility] Comment on above: Performed By: #### H EMOG, CMP3M, CRP2, LDH3, FIBGN, DDI2, APTT, FERR3 #### [facility] [address] [place] [address] AST [Catalytic activity/Vol] 86 U/L High 15-46 [facility] Comment on above: Performed By: #### H EMOG, CMP3M, CRP2, LDH3, FIBGN, DDI2, APTT, FERR3 #### [facility] [address] [place] [address] Calcium [Mass/Vol] 8.5 mg/dL Normal 8.4-10.4 [facility] Comment on above: Performed By: #### H EMOG, CMP3M, CRP2, LDH3, FIBGN, DDI2, APTT, FERR3 #### [facility] [address] [place] [address] CO2 [Moles/Vol] 17 mmol/L Low 22-30 [facility] Comment on above: Performed By: #### H EMOG, CMP3M, CRP2, LDH3, FIBGN, DDI2, APTT, FERR3 #### [facility] [address] [place] [address] Glucose [Mass/Vol] 139 mg/dL High 70-100 [facility] Comment on above: Performed By: #### H EMOG, CMP3M, CRP2, LDH3, FIBGN, DDI2, APTT, FERR3 #### [facility] [address] [place] [address] Protein [Mass/Vol] 5.8 g/dL Low 6.3-8.2 [facility] Comment on above: Performed By: #### H EMOG, CMP3M, CRP2, LDH3, FIBGN, DDI2, APTT, FERR3 #### [facility] [address] [place] [address] Urea nitrogen [Mass/Vol] 31 mg/dL High 7-20 [facility] Comment on above: Performed By: #### H EMOG, CMP3M, CRP2, LDH3, FIBGN, DDI2, APTT, FERR3 #### [facility] [address] [place] [address] Bilirubin [Mass/Vol] 0.5 mg/dL Normal 0.2-1.3 [facility] Comment on above: Performed By: #### H EMOG, CMP3M, CRP2, LDH3, FIBGN, DDI2, APTT, FERR3 #### [facility] [address] [place] [address] Creatinine [Mass/Vol] 2.37 mg/dL High 0.52-1.25 [facility] Comment on above: Performed By: #### H EMOG, CMP3M, CRP2, LDH3, FIBGN, DDI2, APTT, FERR3 #### [facility] [address] [place] [address] GFR/1.73 sq M predicted among blacks MDRD (S/P/Bld) [Vol rate/Area] 33.9 mL/min/{1.73_m2} Abnormal >60 [facility] Comment on above: Performed By: #### H EMOG, CMP3M, CRP2, LDH3, FIBGN, DDI2, APTT, FERR3 #### [facility] [address] [place] [address] GFR/1.73 sq M predicted among non-blacks MDRD (S/P/Bld) [Vol rate/Area] 29.2 mL/min/{1.73_m2} Abnormal >60 [facility] Comment on above: Result Comment: [...] CRP2, LDH3, FIBGN, DDI2, APTT, FERR3 #### [facility] [address] [place] [address] Potassium [Moles/Vol] 4.3 mmol/L Normal 3.5-5.1 [facility] Comment on above: Performed By: #### H EMOG, CMP3M, CRP2, LDH3, FIBGN, DDI2, APTT, FERR3 #### [facility] [address] [place] [address] Sodium [Moles/Vol] 136 mmol/L Normal 135-145 [facility] Comment on above: Performed By: #### H EMOG, CMP3M, CRP2, LDH3, FIBGN, DDI2, APTT, FERR3 #### [facility] [address] [place] [address] Albumin [Mass/Vol] 3.0 g/dL Low 3.5-5.0 [facility] Comment on above: Performed By: #### H EMOG, CMP3M, CRP2, LDH3, FIBGN, DDI2, APTT, FERR3 #### [facility] [address] [place] [address] Chloride [Moles/Vol] 110 mmol/L High 98-107 [facility] Comment on above: Performed By: #### H EMOG, CMP3M, CRP2, LDH3, FIBGN, DDI2, APTT, FERR3 #### [facility] [address] [place] [address] Comprehensive Metabolic Pane l w/ Reflex to MGon 10-29-2020 Albumin [Mass/Vol] 3.2 g/dL Low 3.5 - 5 g/dL [place] ALP [Catalytic activity/Vol] 71 U/L 38 - 126 U/L [place] ALT [Catalytic activity/Vol] 67 U/L High 0 - 49 U/L [place] Comment on above: The ALT test is perf ormed by an updated assay method. Please note that the reference intervals have been changed and are now sex specific. Anion gap [Moles/Vol] 7 mmol/L [place] AST [Catalytic activity/Vol] 88 U/L High 15 - 46 U/L [place] Bilirubin Ql (U) 0.6 mg/dL 0.2 - 1.3 mg/dL [place] Calcium [Mass/Vol] 8.9 mg/dL 8.4 - 10. 4 mg/dL [place] Chloride [Moles/Vol] 112 mmol/L High 98 - 10 7 mmol/L [place] CO2 [Moles/Vol] 18 mmol/L Low 22 - 30 mmol/L [place] Creatinine [Mass/Vol] 2.24 mg/dL High 0.52 - 1.25 mg/dL [place] EGFR IF NonAfrican [place] 31.3 mL/min Abnormal >60 [place] Comment on above: KDIGO guidelines pro [...] (S/P/Bld) [Vol rate/Area] 36.2 mL/min/{1.73_m2} Abnormal >60 [place] Glucose [Mass/Vol] 132 mg/dL High 70 - 100 mg/dL [place] Interpretation and review of laboratory results Abnormal [place] Potassium [Moles/Vol] 3.9 mmol/L 3.5 - 5.1 mmol/L [place] Protein [Mass/Vol] 6.0 g/dL Low 6.3 - 8.2 g/dL [place] Sodium [Moles/Vol] 137 mmol/L 135 - 145 mmol/L [place] Urea nitrogen [Mass/Vol] 33 mg/dL High 7 - 20 mg/dL [place] Test Performed by [facility], [address] [place] [address] [place] Albumin [Mass/Vol] 3.0 g/dL Low 3.5 - 5 g/dL [place] ALP [Catalytic activity/Vol] 81 U/L 38 - 126 U/L [place] ALT [Catalytic activity/Vol] 67 U/L High 0 - 49 U/L [place] Comment on above: The ALT test is perf ormed by an updated assay method. Please note that the reference intervals have been changed and are now sex specific. Anion gap [Moles/Vol] 9 mmol/L [place] AST [Catalytic activity/Vol] 86 U/L High 15 - 46 U/L [place] Bilirubin Ql (U) 0.5 mg/dL 0.2 - 1.3 mg/dL [place] Calcium [Mass/Vol] 8.5 mg/dL 8.4 - 10. 4 mg/dL [place] Chloride [Moles/Vol] 110 mmol/L High 98 - 10 7 mmol/L [place] CO2 [Moles/Vol] 17 mmol/L Low 22 - 30 mmol/L [place] Creatinine [Mass/Vol] 2.37 mg/dL High 0.52 - 1.25 mg/dL [place] EGFR IF NonAfrican [place] 29.2 mL/min Abnormal >60 [place], [place] Comment on above: KDIGO guidelines pro [...] (S/P/Bld) [Vol rate/Area] 33.9 mL/min/{1.73_m2} Abnormal >60 [place] Glucose [Mass/Vol] 139 mg/dL High 70 - 100 mg/dL [place] Potassium [Moles/Vol] 4.3 mmol/L 3.5 - 5.1 mmol/L [place] Protein [Mass/Vol] 5.8 g/dL Low 6.3 - 8.2 g/dL [place], [place] Sodium [Moles/Vol] 136 mmol/L 135 - 145 mmol/L [place] Urea nitrogen [Mass/Vol] 31 mg/dL High 7 - 20 mg/dL [place] D-Dimer, Innovanceon 12-16-2 020 D-Dimer, Innovance 1.54 mg/L High 0.00-0.50 [facility] [employer] [facility] Comment on above: Result Comment: Inno quach D-Dimer values of <0.50 mg/L FEU can be used in combination with a pre-test probability model (e.g. Well's) to exclude pulmonary embolism (PE) disease, as well as an aid in the diagnosis of deep vein thrombosis (DVT). Performed By: #### H EMOG, CMP3M, CRP2, LDH3, FIBGN, DDI2, APTT, FERR3 #### [facility] [employer] [facility] [address] [place] [address] D-Dimer, Innovance 1.23 mg/L High 0.00-0.50 [facility] Comment on above: Result Comment: Inno quach D-Dimer values of <0.50 mg/L FEU can be used in combination with a pre-test probability model (e.g. Well's) to exclude pulmonary embolism (PE) disease, as well as an aid in the diagnosis of deep vein thrombosis (DVT). Performed By: #### H EMOG, CMP3M, CRP2, LDH3, FIBGN, DDI2, APTT, FERR3 #### [facility] [employer] [facility] [address] [place] [address] D-Dimer, Quantitativeon 10-14 D-Dimer, Quant 1.54 mg/L High 0 - 0.5 mg/L [facility] [place] [place] Comment on above: Innovance D-Dimer va lues of <0.50 mg/L FEU can be used in combination with a pre-test probability model (e.g. Well's) to exclude pulmonary embolism (PE) disease, as well as an aid in the diagnosis of deep vein thrombosis (DVT). D-Dimer, Quant 1.23 mg/L High 0 - 0.5 mg/L [facility] [place] [place] Comment on above: Innovance D-Dimer va lues of <0.50 mg/L FEU can be used in combination with a pre-test probability model (e.g. Well's) to exclude pulmonary embolism (PE) disease, as well as an aid in the diagnosis of deep vein thrombosis (DVT). 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 : 1965 Requested By: ANDREW SILVER Order Number: [id number] Reading MD: Usama Johnston Intervals [place] Rate: 85 P: 15 MI: 184 QRS: -12 QRSD: 104 T: 73 QT: 408 QTc: 486 Interpretive Statements SINUS RHYTHM Electronically Signed On 10-29-2020 9:40:09 EST by Usama [facility] [employer] [facility] Test Date: 2020-10-28 Pat Name: Reggie León Department: 2AED Room: 468 Gender: M 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 : 1965 Requested By: ANDREW SILVER Order Number: [id number] Reading MD: Usama Cedillo Measurements Intervals [place] Rate: 85 P: 15 MI: 184 QRS: -12 QRSD: 104 T: 73 QT: 408 QTc: 486 Interpretive Statements SINUS RHYTHM Electronically Signed On 10-29-2020 9:40:09 EST by [facility] [place] Ferritinon 10-29-2020 Ferritin [Mass/Vol] 714 ng/mL High 18-464 [facility] [employer] [facility] Comment on above: Performed By: #### H EMOG, CMP3M, CRP2, LDH3, FIBGN, DDI2, APTT, FERR3 #### [facility] [employer] [facility] [address] [place] [address] Ferritin [Mass/Vol] 714 ng/mL High 18 - 464 ng/mL [place], [place] Interpretation and review of laboratory results Abnormal [place] Test Performed by [facility] [employer], [address], [place] [address] [place] Fibrinogenon 10-29-2020 Fibrinogen 534 mg/dL High 200-400 [facility] [employer] [facility] Comment on above: Performed By: #### H EMOG, CMP3M, CRP2, LDH3, FIBGN, DDI2, APTT, FERR3 #### [facility] [employer] [facility] [address] [place] [address] Fibrinogen 534 mg/dL High 200 - 400 mg/dL [place] Fibrinogen 587 mg/dL High 200-400 [facility] Comment on above: Performed By: #### H EMOG, CMP3M, CRP2, LDH3, FIBGN, DDI2, APTT, FERR3 #### [facility] [address] [place] [address] Fibrinogen 587 mg/dL High 200 - 400 mg/dL [place] Hemogramon 10-29-2020 Erythrocyte distribution width (RBC) [Ratio] 14.2 % Normal 11.5-14.5 [facility] Comment on above: Performed By: #### H EMOG, CMP3M, CRP2, LDH3, FIBGN, DDI2, APTT, FERR3 #### [facility] [address] [place] [address] Hematocrit (Bld) [Volume fraction] 37.3 % Low 40.0-52.0 [facility] Comment on above: Performed By: #### H EMOG, CMP3M, CRP2, LDH3, FIBGN, DDI2, APTT, FERR3 #### [facility] [address] [place] [address] Hemoglobin (Bld) [Mass/Vol] 12.6 g/dL Low 13.0-18.0 [facility] Comment on above: Performed By: #### H EMOG, CMP3M, CRP2, LDH3, FIBGN, DDI2, APTT, FERR3 #### [facility] [address] [place] [address] MCH (RBC) [Entitic mass] 29.2 pg Normal 26.0-34.0 [facility] Comment on above: Performed By: #### H EMOG, CMP3M, CRP2, LDH3, FIBGN, DDI2, APTT, FERR3 #### [facility] [address] [place] [address] MCHC (RBC) [Mass/Vol] 33.7 % Normal 32.0-36.0 [facility] Comment on above: Performed By: #### H EMOG, CMP3M, CRP2, LDH3, FIBGN, DDI2, APTT, FERR3 #### [facility] [address] [place] [address] MCV (RBC) [Entitic vol] 86.7 fL Normal 80.0-98.0 [facility] Comment on above: Performed By: #### H EMOG, CMP3M, CRP2, LDH3, FIBGN, DDI2, APTT, FERR3 #### [facility] [address] [place] [address] Platelet mean volume (Bld) [Entitic vol] 7.6 fL Normal 7.4-10.4 [facility] Comment on above: Performed By: #### H EMOG, CMP3M, CRP2, LDH3, FIBGN, DDI2, APTT, FERR3 #### [facility] [address] [place] [address] Platelets (Bld) [#/Vol] 255 10*3/uL Normal 140-440 [facility] Comment on above: Performed By: #### H EMOG, CMP3M, CRP2, LDH3, FIBGN, DDI2, APTT, FERR3 #### [facility] [address] [place] [address] RBC (Bld) [#/Vol] 4.30 10*6/uL Low 4.40-5.90 [facility] Comment on above: Performed By: #### H EMOG, CMP3M, CRP2, LDH3, FIBGN, DDI2, APTT, FERR3 #### [facility] [address] [place] [address] WBC (Bld) [#/Vol] 7.8 10*3/uL Normal 3.6-10.7 [facility] Comment on above: Performed By: #### H EMOG, CMP3M, CRP2, LDH3, FIBGN, DDI2, APTT, FERR3 #### [facility] [address] [place] [address] Hemogram w/ Autodiffon 10-29 Abs Baso Cnt 0.0 10*3/uL Normal 0.0-0.2 [facility] Comment on above: Performed By: #### H EMOG, CMP3M, CRP2, LDH3, FIBGN, DDI2, APTT, FERR3 #### [facility] [address] [place] [address] Abs Neutrophile Cnt 3.5 10*3/uL Normal 1.8-7.0 [facility] Comment on above: Performed By: #### H EMOG, CMP3M, CRP2, LDH3, FIBGN, DDI2, APTT, FERR3 #### [facility] [address] [place] [address] Basophils/100 WBC (Bld) 0.3 % Normal 0.0-2.0 [facility] Comment on above: Performed By: #### H EMOG, CMP3M, CRP2, LDH3, FIBGN, DDI2, APTT, FERR3 #### [facility] [address] [place] [address] Eosinophils (Bld) [#/Vol] 0.0 10*3/uL Normal 0.0-0.5 [facility] Comment on above: Performed By: #### H EMOG, CMP3M, CRP2, LDH3, FIBGN, DDI2, APTT, FERR3 #### [facility] [address] [place] [address] Eosinophils/100 WBC (Bld) 0.0 % Low 1.0-6.0 [facility] Comment on above: Performed By: #### H EMOG, CMP3M, CRP2, LDH3, FIBGN, DDI2, APTT, FERR3 #### [facility] [address] [place] [address] Erythrocyte distribution width (RBC) [Ratio] 13.8 % Normal 11.5-14.5 [facility] Comment on above: Performed By: #### H EMOG, CMP3M, CRP2, LDH3, FIBGN, DDI2, APTT, FERR3 #### [facility] [address] [place] [address] Granulocytes/100 WBC (Bld) 79.4 % Normal 40.0-80.0 [facility] Comment on above: Performed By: #### H EMOG, CMP3M, CRP2, LDH3, FIBGN, DDI2, APTT, FERR3 #### [facility] [address] [place] [address] Hematocrit (Bld) [Volume fraction] 36.7 % Low 40.0-52.0 [facility] Comment on above: Performed By: #### H EMOG, CMP3M, CRP2, LDH3, FIBGN, DDI2, APTT, FERR3 #### [facility] [address] [place] [address] Hemoglobin (Bld) [Mass/Vol] 12.2 g/dL Low 13.0-18.0 [facility] Comment on above: Performed By: #### H EMOG, CMP3M, CRP2, LDH3, FIBGN, DDI2, APTT, FERR3 #### [facility] [address] [place] [address] Lymphocytes (Bld) [#/Vol] 0.4 10*3/uL Low 1.0-4.3 [facility] Comment on above: Performed By: #### H EMOG, CMP3M, CRP2, LDH3, FIBGN, DDI2, APTT, FERR3 #### [facility] [address] [place] [address] Lymphocytes/100 WBC (Bld) 8.8 % Low 20.0-40.0 [facility] Comment on above: Performed By: #### H EMOG, CMP3M, CRP2, LDH3, FIBGN, DDI2, APTT, FERR3 #### [facility] [address] [place] [address] MCH (RBC) [Entitic mass] 29.1 pg Normal 26.0-34.0 [facility] Comment on above: Performed By: #### H EMOG, CMP3M, CRP2, LDH3, FIBGN, DDI2, APTT, FERR3 #### [facility] [address] [place] [address] MCHC (RBC) [Mass/Vol] 33.1 % Normal 32.0-36.0 [facility] Comment on above: Performed By: #### H EMOG, CMP3M, CRP2, LDH3, FIBGN, DDI2, APTT, FERR3 #### [facility] [address] [place] [address] MCV (RBC) [Entitic vol] 87.8 fL Normal 80.0-98.0 [facility] Comment on above: Performed By: #### H EMOG, CMP3M, CRP2, LDH3, FIBGN, DDI2, APTT, FERR3 #### [facility] [address] [place] [address] Monocytes (Bld) [#/Vol] 0.5 10*3/uL Normal 0.0-0.8 [facility] Comment on above: Performed By: #### H EMOG, CMP3M, CRP2, LDH3, FIBGN, DDI2, APTT, FERR3 #### [facility] [address] [place] [address] Monocytes/100 WBC (Bld) 11.5 % High 2.0-10.0 [facility] Comment on above: Performed By: #### H EMOG, CMP3M, CRP2, LDH3, FIBGN, DDI2, APTT, FERR3 #### [facility] [address] [place] [address] Platelet mean volume (Bld) [Entitic vol] 7.9 fL Normal 7.4-10.4 [facility] Comment on above: Performed By: #### H EMOG, CMP3M, CRP2, LDH3, FIBGN, DDI2, APTT, FERR3 #### [facility] [address] [place] [address] Platelets (Bld) [#/Vol] 231 10*3/uL Normal 140-440 [facility] Comment on above: Performed By: #### H EMOG, CMP3M, CRP2, LDH3, FIBGN, DDI2, APTT, FERR3 #### [facility] [address] [place] [address] RBC (Bld) [#/Vol] 4.19 10*6/uL Low 4.40-5.90 [facility] Comment on above: Performed By: #### H EMOG, CMP3M, CRP2, LDH3, FIBGN, DDI2, APTT, FERR3 #### [facility] [address] [place] [address] WBC (Bld) [#/Vol] 4.4 10*3/uL Normal 3.6-10.7 [facility] Comment on above: Performed By: #### H EMOG, CMP3M, CRP2, LDH3, FIBGN, DDI2, APTT, FERR3 #### [facility] [address] [place] [address] LDHon 10-29-2020 LDH 676 U/L High 120-246 [facility] Comment on above: Performed By: #### H EMOG, CMP3M, CRP2, LDH3, FIBGN, DDI2, APTT, FERR3 #### [facility] [address] [place] [address] Lactate Dehydrogenaseon 10-14 LD 676 U/L High 120 - 246 U/L [place] Lithiumon 10-29-2020 [place] [Moles/Vol] 0.7 mmol/L Normal 0.6-1.2 [facility] Comment on above: Performed By: #### H EMOG, CMP3M, CRP2, LDH3, FIBGN, DDI2, APTT, FERR3 #### [facility] [address] [place] [address] [place] Levelon 10-29-2020 [place] Lvl 0.7 mmol/L 0.6 - 1.2 mmol/L [place] Otheron 10-29-2020 Interpretation and review of laboratory results Abnormal [place] Test Performed by [facility], [facility] [address] [place], [place] [id number] [place] [address] Interpretation and review of laboratory results Abnormal [place] Test Performed by [facility], [facility] [address] [place], [place] [id number] [place] [address] Interpretation and review of laboratory results Abnormal [place] Test Performed by [facility], [facility] [address] [place], [place] [id number] [place] [address] Procalcitoninon 10-29-2020 Procalcitonin 0.31 ng/mL Abnormal <0.10 [facility] Comment on above: Performed By: #### H EMOG, CMP3M, CRP2, LDH3, FIBGN, DDI2, APTT, FERR3 #### [facility] [address] [place] [address] Interpretation and review of laboratory results Abnormal [place] Procalcitonin 0.31 ng/mL Abnormal <0.10 [place] Sodium [Moles/Vol] See Below [place], [place] Comment on above: PCT <0.50 = Low risk of severe sepsis and/or septic shock. PCT >2.00 = High risk of severe sepsis and/or septic shock. [facility], [address] [place] [id number] [place], [place] Vit D 25-OH, Totalon 020 Vit D 25-OH, Total 69 ng/mL Normal 30-100 [facility] Comment on above: Result Comment: Ther apy is based on measurement of Total 25-OHD with the following classification levels: Less than 20 ng/mL: Indicative of Vit D deficiency 20-30 ng/mL: Suggests Vit D insufficiency Optimal: Greater than or equal to 30 ng/mL Test performed by [employer], measuring Total Vitamin D, not individual fractions. Performed By: #### H EMOG, CMP3M, CRP2, LDH3, FIBGN, DDI2, APTT, FERR3 #### [facility] [employer] [facility] [address] [place] [address] Vitamin D 25 Hydroxyon 10-29 Vit D, 25-Hydroxy 69 ng/mL 30 - 100 ng/mL [place] Comment on above: Therapy is based on measurement of Total 25-OHD with the following classification levels: Less than 20 ng/mL: Indicative of Vit D deficiency 20-30 ng/mL: Suggests Vit D insufficiency Optimal: Greater than or equal to 30 ng/mL Test performed by [employer], measuring Total Vitamin D, not individual fractions. Test Performed by [employer] [facility], [address], [place], [place] [address] [place], [place] Arterial Blood Gas Respirato sarah 10-28-2020 Base Excess -5.8 mmol/L Low -3.0-3.0 [facility] Comment on above: Performed By: #### A BGE #### [facility] [address] [place] [address] CO2 [Moles/Vol] 19.3 mmol/L Low 23.0-27.0 [facility] Comment on above: Performed By: #### A BGE #### [facility] [address] [place] [address] FIO2 21 Normal [facility] Comment on above: Result Comment: Perf ormed by CLIA ID: [id number] [place], [place] Performed By: #### A BGE #### [facility] [address] [place] [address] HCO3 (Bld) [Moles/Vol] 18.3 mmol/L Low 21.0-25.0 [facility] Comment on above: Performed By: #### A BGE #### [facility] [address] [place] [address] Oxygen (Bld) [Partial pressure] 69.8 mm[Hg] Low 80.0-100.0 [facility] Comment on above: Performed By: #### A BGE #### [facility] [address] [place] [address] Oxygen saturation in Blood 93.6 % Low 95.0-100. 0 [facility] Comment on above: Performed By: #### A BGE #### [facility] [address] [place] [address] pCO2 31.2 mm[Hg] Low 35.0-45.0 [facility] Comment on above: Performed By: #### A BGE #### [facility] [address] [place] [address] pH (Bld) 7.376 Normal 7.350-7.450 [facility] Comment on above: Performed By: #### A BGE #### [facility] [address] [place] [address] Brain Natriuretic Peptideon 10-28-2020 Natriuretic peptide B (Bld) [Mass/Vol] 47 pg/mL 0 - 125 pg/mL [facility] [place] [place] CR Chest Portableon 10-28-20 20 CR Chest Portable Patient Name: REGGIE LEÓN Diagnostic Radiology ACCESSION EXAM DATE/TIME PROCEDURE ORDERING PROVIDER [id number] 10/28/2020 15:05 EST CR Chest Portable BALAJI SILVER DANIEL M CPT code 38115 Reason For Exam (CR Chest Portable) dyspnea [...] Transcribed Date and Time: 10/28/2020 3:21 Normal [facility] Comp Metabolic Panelon 10-28 ALP [Catalytic activity/Vol] 82 U/L Normal 38-126 [facility] Comment on above: Performed By: #### H EMOG, CMP3M, CRP2, LDH3, FIBGN, DDI2, APTT, FERR3 #### [facility] [address] [place] [address] ALT [Catalytic activity/Vol] 60 U/L High 0-49 [facility] Comment on above: Result Comment: The ALT test is performed by an updated assay method. Please note that the reference intervals have been changed and are now sex specific. Performed By: #### H EMOG, CMP3M, CRP2, LDH3, FIBGN, DDI2, APTT, FERR3 #### [facility] [address] [place] [address] Calcium [Mass/Vol] 8.6 mg/dL Normal 8.4-10.4 [facility] Comment on above: Performed By: #### H EMOG, CMP3M, CRP2, LDH3, FIBGN, DDI2, APTT, FERR3 #### [facility] [address] [place] [address] Glucose [Mass/Vol] 122 mg/dL High 70-100 [facility] Comment on above: Performed By: #### H EMOG, CMP3M, CRP2, LDH3, FIBGN, DDI2, APTT, FERR3 #### [facility] [address] [place] [address] Protein [Mass/Vol] 6.2 g/dL Low 6.3-8.2 [facility] Comment on above: Performed By: #### H EMOG, CMP3M, CRP2, LDH3, FIBGN, DDI2, APTT, FERR3 #### [facility] [address] [place] [address] Urea nitrogen [Mass/Vol] 35 mg/dL High 7-20 [facility] Comment on above: Performed By: #### H EMOG, CMP3M, CRP2, LDH3, FIBGN, DDI2, APTT, FERR3 #### [facility] [address] [place] [address] Anion gap [Moles/Vol] 9 Normal [facility] Comment on above: Performed By: #### H EMOG, CMP3M, CRP2, LDH3, FIBGN, DDI2, APTT, FERR3 #### [facility] [address] [place] [address] AST [Catalytic activity/Vol] 87 U/L High 15-46 [facility] Comment on above: Performed By: #### H EMOG, CMP3M, CRP2, LDH3, FIBGN, DDI2, APTT, FERR3 #### [facility] [address] [place] [address] Bilirubin [Mass/Vol] 0.6 mg/dL Normal 0.2-1.3 [facility] Comment on above: Performed By: #### H EMOG, CMP3M, CRP2, LDH3, FIBGN, DDI2, APTT, FERR3 #### [facility] [address] [place] [address] CO2 [Moles/Vol] 22 mmol/L Normal 22-30 [facility] Comment on above: Performed By: #### H EMOG, CMP3M, CRP2, LDH3, FIBGN, DDI2, APTT, FERR3 #### [facility] [address] [place] [address] Creatinine [Mass/Vol] 2.96 mg/dL High 0.52-1.25 [facility] Comment on above: Performed By: #### H EMOG, CMP3M, CRP2, LDH3, FIBGN, DDI2, APTT, FERR3 #### [facility] [address] [place] [address] GFR/1.73 sq M predicted among blacks MDRD (S/P/Bld) [Vol rate/Area] 25.9 mL/min/{1.73_m2} Abnormal >60 [facility] Comment on above: Performed By: #### H EMOG, CMP3M, CRP2, LDH3, FIBGN, DDI2, APTT, FERR3 #### [facility] [address] [place] [address] GFR/1.73 sq M predicted among non-blacks MDRD (S/P/Bld) [Vol rate/Area] 22.3 mL/min/{1.73_m2} Abnormal >60 [facility] Comment on above: Result Comment: [...] CRP2, LDH3, FIBGN, DDI2, APTT, FERR3 #### [facility] [address] [place] [address] Chloride [Moles/Vol] 101 mmol/L Normal 98-107 [facility] Comment on above: Performed By: #### H EMOG, CMP3M, CRP2, LDH3, FIBGN, DDI2, APTT, FERR3 #### [facility] [address] [place] [address] Potassium [Moles/Vol] 3.1 mmol/L Low 3.5-5.1 [facility] Comment on above: Performed By: #### H EMOG, CMP3M, CRP2, LDH3, FIBGN, DDI2, APTT, FERR3 #### [facility] [address] [place] [address] Sodium [Moles/Vol] 133 mmol/L Low 135-145 [facility] Comment on above: Performed By: #### H EMOG, CMP3M, CRP2, LDH3, FIBGN, DDI2, APTT, FERR3 #### [facility] [address] [place] [address] Albumin [Mass/Vol] 3.3 g/dL Low 3.5-5.0 [facility] Comment on above: Performed By: #### H EMOG, CMP3M, CRP2, LDH3, FIBGN, DDI2, APTT, FERR3 #### [facility] [address] [place] [address] Complete Urinalysison 2019 Amorphous Crystal Few Abnormal Negative [facility] Comment on above: Result Comment: . Performed By: #### C UA2 #### [facility] [address] [place] [address] Appearance (U) Clear Normal Clear [facility] Comment on above: Result Comment: . Performed By: #### C UA2 #### [facility] [address] [place] [address] Bacteria LM.HPF (Urine sed) [#/Area] Few Abnormal Negative [facility] Comment on above: Result Comment: . Performed By: #### C UA2 #### [facility] [address] [place] [address] Bilirubin,Urine Negative Normal Negative [facility] Comment on above: Result Comment: . Performed By: #### C UA2 #### [facility] [address] [place] [address] Cast, Granular 0 - 2 Abnormal Negative [facility] Comment on above: Result Comment: . Performed By: #### C UA2 #### [facility] [address] [place] [address] Cast, Hyaline 3 - 5 Abnormal Negative [facility] Comment on above: Result Comment: . Performed By: #### C UA2 #### [facility] [address] [place] [address] Color (U) Yellow Normal Lt. Yellow [facility] Comment on above: Result Comment: . Performed By: #### C UA2 #### [facility] [address] [place] [address] Glucose Ql (U) Normal Normal Normal (<70) [facility] Comment on above: Result Comment: . Performed By: #### C UA2 #### [facility] [address] [place] [address] Ketone,Urine Negative Normal Negative [facility] Comment on above: Result Comment: . Performed By: #### C UA2 #### [facility] [address] [place] [address] Leukocytes,Urine Negative Normal Negative [facility] Comment on above: Result Comment: . Performed By: #### C UA2 #### [facility] [address] [place] [address] Mucous Threads Few Normal Negative [facility] Comment on above: Result Comment: . Performed By: #### C UA2 #### [facility] [address] [place] [address] Nitrites,Urine Negative Normal Negative [facility] Comment on above: Result Comment: . Performed By: #### C UA2 #### [facility] [address] [place] [address] Non-Squamous Epithelial < 1 Abnormal Negative [facility] Comment on above: Result Comment: . Performed By: #### C UA2 #### [facility] [address] [place] [address] Occult Blood,Urine Negative Normal Negative [facility] Comment on above: Result Comment: . Performed By: #### C UA2 #### [facility] [address] [place] [address] pH (U) 5.5 Normal 5.0-8.0 [facility] Comment on above: Result Comment: . Performed By: #### C UA2 #### [facility] [address] [place] [address] Protein (U) [Mass/Vol] 20 mg/dL Abnormal Negative [facility] Comment on above: Result Comment: . Performed By: #### C UA2 #### [facility] [facility] [address] [place] [address] RBC LM.HPF (Urine sed) [#/Area] 0 - 2 Normal 0-2 [facility] Comment on above: Result Comment: . Performed By: #### C UA2 #### [facility] [address] [place] [address] Specific [place],Urine 1.015 Normal 1.005 - 1.030 [facility] Comment on above: Result Comment: . Performed By: #### C UA2 #### [facility] [address] [place] [address] Squamous Epithelial 0 - 2 Normal 3-5 [facility] Comment on above: Result Comment: . Performed By: #### C UA2 #### [facility] [address] [place] [address] Urobilinogen,Urine Normal Normal Normal (0-1) [facility] Comment on above: Result Comment: . Performed By: #### C UA2 #### [facility] [address] [place] [address] WBC LM.HPF (Urine sed) [#/Area] 0 - 2 Normal 0-5 [facility] Comment on above: Result Comment: . Performed By: #### C UA2 #### [facility] [address] [place] [address] Comprehensive Metabolic Pane rahul 10-28-2020 Albumin [Mass/Vol] 3.3 g/dL Low 3.5 - 5 g/dL [place], [place] ALP [Catalytic activity/Vol] 82 U/L 38 - 126 U/L [place] ALT [Catalytic activity/Vol] 60 U/L High 0 - 49 U/L [place] Comment on above: The ALT test is perf ormed by an updated assay method. Please note that the reference intervals have been changed and are now sex specific. Anion gap [Moles/Vol] 9 mmol/L [place], [place] AST [Catalytic activity/Vol] 87 U/L High 15 - 46 U/L [place] Bilirubin Ql (U) 0.6 mg/dL 0.2 - 1.3 mg/dL [place] Calcium [Mass/Vol] 8.6 mg/dL 8.4 - 10. 4 mg/dL [place] Chloride [Moles/Vol] 101 mmol/L 98 - 10 7 mmol/L [place] CO2 [Moles/Vol] 22 mmol/L 22 - 30 mmol/L [place] Creatinine [Mass/Vol] 2.96 mg/dL High 0.52 - 1.25 mg/dL [place] EGFR IF NonAfrican Beninese 22.3 mL/min Abnormal >60 [place] Comment on above: KDIGO guidelines pro [...] (S/P/Bld) [Vol rate/Area] 25.9 mL/min/{1.73_m2} Abnormal >60 [place] Glucose [Mass/Vol] 122 mg/dL High 70 - 100 mg/dL [place] Interpretation and review of laboratory results Abnormal [place] Potassium [Moles/Vol] 3.1 mmol/L Low 3.5 - 5.1 mmol/L [place] Protein [Mass/Vol] 6.2 g/dL Low 6.3 - 8.2 g/dL [place] Sodium [Moles/Vol] 133 mmol/L Low 135 - 145 mmol/L [place] Urea nitrogen [Mass/Vol] 35 mg/dL High 7 - 20 mg/dL [place] ED Provider Noteon 0 ED Provider Note Emergency [facility] Patient: Reggie León : 1965 Date of Evaluation: 10/28/2020 ED Supervising Physician: Otf Long, I independently examined and evaluated Reggie León. In brief, Reggie León is a 55 y.o. male that presents to the emergency department with increased shortness of breath from his mcc. Patient has a known COVID-19 infection. Patient [...] and cough. CELINA spoke with the patient's mcc who states that he was on 4 [...] EKG: Sinus rhythm rate 85, QTC 486, MI interval 184, Q wave in lead 3, [...] Solutions Otf Long DO 10/28/20 1823 Normal [facility] ED [facility] e[facility]GENCY dEPARTMENT eNCOUnter Pt Name: [...] file Gets together: Not on file Attends methodist service: Not on file Active member of [...] History Narrative ? Not on file SCREENINGS @FLOW([id number])@ PHYSICAL EXAM (5+ for level 4, 8+ [...] Department physician in the absence of a motorcycle tester. Please see their accompanying note for interpretation. RADIOLOGY (Per EmergencyPhysician): Interpretation per the Radiologist below, if available at the time of this note: Xr Chest Portable Result Date: 10/28/2020 Patient Name: REGGIE LEÓN Diagnostic Radiology ACCESSION EXAM DATE/TIME PROCEDURE ORDERING PROVIDER [id number] 10/28/2020 15:05 EST CR Chest Portable BALAJI SILVER DANIEL M CPT code 31886 Reason For Exam (CR Chest Portable) dyspnea [...] (*) eGFR 25.9 (*) EGFR IF NonAfrican Beninese 22.3 (*) Albumin,Serum 3.3 (*) Total Protein 6.2 (*) ALT 60 (*) AST 87 (*) All other components within normal limits Narrative: Test Performed by [facility], [address] [place] [address] CBC WITH AUTO DIFFERENTIAL - Abnormal; Notable for the following components: Hemoglobin 12.9 (*) Hematocrit 38.1 (*) Lymphocyte % 13.6 (*) Monocytes 17.8 (*) Eosinophils 0.8 (*) Absolute Lymph # 0.6 (*) All other components within normal limits Narrative: Test Performed by [facility], [address] [place] [address] POCT ARTERIAL - Abnormal; Notable for the following components: pCO2, Arterial 31.2 (*) pO2, Arterial 69.8 (*) HCO3, Arterial 18.3 (*) Base Excess, Arterial -5.8 (*) O2 Sat, Arterial 93.6 (*) TCO2, Arterial 19.3 (*) All other components within normal limits Narrative: Test Performed by [facility], [address] [address] BRAIN NATRIURETIC PEPTIDE Narrative: Test Performed by [facility], [address] [place] [address] TROPONIN Narrative: Test Performed by [facility], [facility] [address] [address] LACTIC ACID, PLASMA Narrative: Test Performed by [facility], [address] [place], [place], [place] [address] URINALYSIS POCT ARTERIAL All other labs were [...] Provider NICKI Bustillo CNP 10/28/20 1752 Normal [facility] [employer] Hemogram (CBC) w/Auto Diffon 10-28-2020 Absolute Baso # 0.0 10*3/uL 0 - 0.2 10*3/uL [place] Absolute Neut # 3.1 10*3/uL 1.8 - 7 10*3/uL [place] Basophils/100 WBC (Bld) 0.7 % 0 - 2 % [place] Eosinophils (Bld) [#/Vol] 0.0 10*3/uL 0 - 0.5 10*3/uL [place] Eosinophils/100 WBC (Bld) 0.8 % Low 1 - 6 % [place] Erythrocyte distribution width (RBC) [Ratio] 14.0 % 11.5 - 14.5 % [place] Granulocytes/100 WBC (Bld) 67.1 % 40 - 80 % [place] Hematocrit (Bld) [Volume fraction] 38.1 % Low 40 - 52 % [place] Hemoglobin (Bld) [Mass/Vol] 12.9 g/dL Low 13 - 18 g/dL [place] Interpretation and review of laboratory results Abnormal [place] Lymphocytes (Bld) [#/Vol] 0.6 10*3/uL Low 1 - 4.3 10*3/uL [place] Lymphocytes/100 WBC (Bld) 13.6 % Low 20 - 40 % [place] MCH (RBC) [Entitic mass] 29.2 pg 26 - 34 pg [place] MCHC (RBC) [Mass/Vol] 33.9 % 32 - 36 % [place] MCV (RBC) [Entitic vol] 86.2 fL 80 - 98 fL [place] Monocytes (Bld) [#/Vol] 0.8 10*3/uL 0 - 0.8 10*3/uL [place] Monocytes/100 WBC (Bld) 17.8 % High 2 - 10 % [place] Platelet mean volume (Bld) [Entitic vol] 7.4 fL 7.4 - 10.4 fL [place] Platelets (Bld) [#/Vol] 223 10*3/uL 140 - 440 10*3/uL [place] RBC (Bld) [#/Vol] 4.42 10*6/uL 4.4 - 5.9 10*6/uL [place] WBC (Bld) [#/Vol] 4.6 10*3/uL 3.6 - 10.7 10*3/uL [place] Test Performed by [facility], [address] [place] [address] [place] Hemogram w/ Autodiffon 10-28 Abs Baso Cnt 0.0 10*3/uL Normal 0.0-0.2 [facility] Comment on above: Performed By: #### H EMOG, CMP3M, CRP2, LDH3, FIBGN, DDI2, APTT, FERR3 #### [facility] [address] [place] [address] Abs Neutrophile Cnt 3.1 10*3/uL Normal 1.8-7.0 [facility] Comment on above: Performed By: #### H EMOG, CMP3M, CRP2, LDH3, FIBGN, DDI2, APTT, FERR3 #### [facility] [address] [place] [address] Basophils/100 WBC (Bld) 0.7 % Normal 0.0-2.0 [facility] Comment on above: Performed By: #### H EMOG, CMP3M, CRP2, LDH3, FIBGN, DDI2, APTT, FERR3 #### [facility] [address] [place] [address] Eosinophils (Bld) [#/Vol] 0.0 10*3/uL Normal 0.0-0.5 [facility] Comment on above: Performed By: #### H EMOG, CMP3M, CRP2, LDH3, FIBGN, DDI2, APTT, FERR3 #### [facility] [address] [place] [address] Eosinophils/100 WBC (Bld) 0.8 % Low 1.0-6.0 [facility] Comment on above: Performed By: #### H EMOG, CMP3M, CRP2, LDH3, FIBGN, DDI2, APTT, FERR3 #### [facility] [address] [place] [address] Erythrocyte distribution width (RBC) [Ratio] 14.0 % Normal 11.5-14.5 [facility] Comment on above: Performed By: #### H EMOG, CMP3M, CRP2, LDH3, FIBGN, DDI2, APTT, FERR3 #### [facility] [address] [place] [address] Granulocytes/100 WBC (Bld) 67.1 % Normal 40.0-80.0 [facility] Comment on above: Performed By: #### H EMOG, CMP3M, CRP2, LDH3, FIBGN, DDI2, APTT, FERR3 #### [facility] [address] [place] [address] Hematocrit (Bld) [Volume fraction] 38.1 % Low 40.0-52.0 [facility] Comment on above: Performed By: #### H EMOG, CMP3M, CRP2, LDH3, FIBGN, DDI2, APTT, FERR3 #### [facility] [address] [place] [address] Hemoglobin (Bld) [Mass/Vol] 12.9 g/dL Low 13.0-18.0 [facility] Comment on above: Performed By: #### H EMOG, CMP3M, CRP2, LDH3, FIBGN, DDI2, APTT, FERR3 #### [facility] [address] [place] [address] Lymphocytes (Bld) [#/Vol] 0.6 10*3/uL Low 1.0-4.3 [facility] Comment on above: Performed By: #### H EMOG, CMP3M, CRP2, LDH3, FIBGN, DDI2, APTT, FERR3 #### [facility] [address] [place] [address] Lymphocytes/100 WBC (Bld) 13.6 % Low 20.0-40.0 [facility] Comment on above: Performed By: #### H EMOG, CMP3M, CRP2, LDH3, FIBGN, DDI2, APTT, FERR3 #### [facility] [address] [place] [address] MCH (RBC) [Entitic mass] 29.2 pg Normal 26.0-34.0 [facility] Comment on above: Performed By: #### H EMOG, CMP3M, CRP2, LDH3, FIBGN, DDI2, APTT, FERR3 #### [facility] [address] [place] [address] MCHC (RBC) [Mass/Vol] 33.9 % Normal 32.0-36.0 [facility] Comment on above: Performed By: #### H EMOG, CMP3M, CRP2, LDH3, FIBGN, DDI2, APTT, FERR3 #### [facility] [address] [place] [address] MCV (RBC) [Entitic vol] 86.2 fL Normal 80.0-98.0 [facility] Comment on above: Performed By: #### H EMOG, CMP3M, CRP2, LDH3, FIBGN, DDI2, APTT, FERR3 #### [facility] [address] [place] [address] Monocytes (Bld) [#/Vol] 0.8 10*3/uL Normal 0.0-0.8 [facility] Comment on above: Performed By: #### H EMOG, CMP3M, CRP2, LDH3, FIBGN, DDI2, APTT, FERR3 #### [facility] [address] [place] [address] Monocytes/100 WBC (Bld) 17.8 % High 2.0-10.0 [facility] Comment on above: Performed By: #### H EMOG, CMP3M, CRP2, LDH3, FIBGN, DDI2, APTT, FERR3 #### [facility] [address] [place] [address] Platelet mean volume (Bld) [Entitic vol] 7.4 fL Normal 7.4-10.4 [facility] Comment on above: Performed By: #### H EMOG, CMP3M, CRP2, LDH3, FIBGN, DDI2, APTT, FERR3 #### [facility] [address] [place] [address] Platelets (Bld) [#/Vol] 223 10*3/uL Normal 140-440 [facility] Comment on above: Performed By: #### H EMOG, CMP3M, CRP2, LDH3, FIBGN, DDI2, APTT, FERR3 #### [facility] [address] [place] [address] RBC (Bld) [#/Vol] 4.42 10*6/uL Normal 4.40-5.90 [facility] Comment on above: Performed By: #### H EMOG, CMP3M, CRP2, LDH3, FIBGN, DDI2, APTT, FERR3 #### [facility] [address] [place] [address] WBC (Bld) [#/Vol] 4.6 10*3/uL Normal 3.6-10.7 [facility] Comment on above: Performed By: #### H EMOG, CMP3M, CRP2, LDH3, FIBGN, DDI2, APTT, FERR3 #### [facility] [address] [place] [address] Lactic Acidon 10-28-2020 Lactate [Moles/Vol] 1.6 mmol/L Normal 0.7-2.0 [facility] Comment on above: Performed By: #### H EMOG, CMP3M, CRP2, LDH3, FIBGN, DDI2, APTT, FERR3 #### [facility] [address] [place] [address] Lactic Acid, Plasmaon 2019 Lactate [Moles/Vol] 1.6 mmol/L 0.7 - 2 mmol/L [facility] [place] NT pro BNPon 10-28-2020 Natriuretic peptide B (Bld) [Mass/Vol] 47 pg/mL Normal 0-125 [facility] Comment on above: Performed By: #### H EMOG, CMP3M, CRP2, LDH3, FIBGN, DDI2, APTT, FERR3 #### [facility] [address] [place] [address] Otheron 10-28-2020 Test Performed by [facility], [address] [place], [place] [id number] [place] [address] Test Performed by [facility], [address] [place], [place] [address] [place] POCT Arterialon 10-28-2020 Base Excess, Arterial -5.8 mmol/L Low -3 - 3 mmol/L [place] HCO3, Arterial 18.3 mmol/L Low 21 - 25 mmol/L [place] Interpretation and review of laboratory results Abnormal [place] Oxygen saturation in Blood 93.6 % Low 95 - 100 % [place] pCO2, Arterial 31.2 mm[Hg] Low 35 - 45 mm[Hg] [place] pH, Arterial 7.376 [place] pO2, Arterial 69.8 mm[Hg] Low 80 - 100 mm[Hg] [place] Sodium [Moles/Vol] 21 mmol/L [place] Comment on above: Performed by CLIA ID : [id number] [place], [place] TCO2, Arterial 19.3 mmol/L Low 23 - 27 mmol/L [place] Test Performed by [facility], [address] [place], [place] [id number] [place] [address] Procalcitoninon 10-28-2020 Interpretation See Below Normal [facility] Comment on above: Result Comment: PCT <0.50 = Low risk of severe sepsis and/or septic shock. PCT >2.00 = High risk of severe sepsis and/or septic shock. Performed By: #### H EMOG, CMP3M, CRP2, LDH3, FIBGN, DDI2, APTT, FERR3 #### [facility] [address] [place] [address] Respiratory Panel, Molecular , with COVID-19 (Restricted: [...] management decisions. This assay was developed by [employer] and distributed under an Emergency Use Authorization (EUA) granted by the FDA for the qualitative detection of SARS-CoV-2 nucleic acid. Provider and patient fact sheets can be found at https://www.fda.gov/m edia/062860/download and https://www.fda.gov/m edia/759942/download. [place] [facility], [address] [place] [address] [place] Troponin Ion 10-28-2020 Troponin I.cardiac [Mass/Vol] ng/mL Normal 0.000-0.034 [facility] Comment on above: Result Comment: . Performed By: #### H EMOG, CMP3M, CRP2, LDH3, FIBGN, DDI2, APTT, FERR3 #### [facility] [employer] [facility] [address] [place] [address] Troponin x1on 10-28-2020 Troponin I.cardiac [Mass/Vol] ng/mL 0 - 0.034 ng/mL [place] Comment on above: . Urinalysison 10-28-2020 AMORPHOUS CRYSTAL Few Abnormal Negative /[HPF] [place] Comment on above: . Appearance (U) Clear Clear NA [place] Comment on above: . Bacteria, UA Few Abnormal Negative /[HPF] [place] Comment on above: . Bilirubin Urine Negative Negative mg/dL [place] Comment on above: . Color (U) Yellow Lt. Yellow NA [place] Comment on above: . Glucose, Ur Normal Normal (<70) mg/dL [place] Comment on above: . Granular Casts, UA 0-2 Abnormal Negative /[LPF] [place] Comment on above: . Hyaline Casts, UA 3-5 Abnormal Negative /[LPF] [place] Comment on above: . Interpretation and review of laboratory results Abnormal [place] Ketones Ql (U) Negative Negative mg/dL [place] Comment on above: . LEUKOCYTES, UA Negative Negative Mary/uL [place] Comment on above: . Mucous Threads Few Negative /[LPF] [place] Comment on above: . Nitrite, Urine Negative Negative NA [place] Comment on above: . Non-Squamous Epithelial <1 Abnormal Nega tive /[HPF] [place] Comment on above: . Occult Blood,Urine Negative Negative mg/dL [place] Comment on above: . pH (U) 5.5 [pH] [place] Comment on above: . Protein (U) [Mass/Vol] 20 mg/dL Abnormal Negative [place] Comment on above: . RBC (U) [#/Vol] 0-2 0 - 2 /[HPF] [place] Comment on above: . Specific [place], Urine 1.015 M [place] Comment on above: . Squam Epithel, UA 0-2 3 - 5 /[HPF] [place] Comment on above: . Urobilinogen, Urine Normal Normal (0-1) mg/dL [place] Comment on above: . WBC, UA 0-2 0 - 5 /[HPF] [place] Comment on above: . Test [facility] by [facility], [address], [place], [place] [address] [place] XR CHEST PORTABLEon 10-28-20 Michel, [facility] Incoming Radiology Results From [employer] - 10/28/2020 3:21 PM EST Patient Name: REGGIE LEÓN Diagnostic Radiology ACCESSION EXAM DATE/TIME PROCEDURE ORDERING PROVIDER [id number] 10/28/2020 15:05 EST CR Chest Portable ADRIANNE, BALAJIANDREW Cirilo CPT code 05448 Reason For Exam (CR Chest Portable) dyspnea [...] JOHN Transcribed Date and Time: 10/28/2020 3:21 [place] Patient Name: REGGIE LEÓN Diagnostic Radiology ACCESSION EXAM DATE/TIME PROCEDURE ORDERING PROVIDER [id number] 10/28/2020 15:05 EST CR Chest Portable BALAJI SILVER DANIEL M CPT code 83926 Reason For Exam (CR Chest Portable) dyspnea [...] Date and Time: 10/28/2020 3:21 [facility] with eGFRon 05-05-2020 Age - Reported 54 years Normal [facility] Comment on above: Performed By: #### 2 [id number] #### [facility],[address] [place] [address] Anion gap [Moles/Vol] 11 mmol/L Normal 10 - 20 [facility] Comment on above: Performed By: #### 2 05541 #### [facility],[address] [place] [address] Calcium [Mass/Vol] 9.5 mg/dL Normal 8.6 - 10.2 [facility] Comment on above: Performed By: #### 2 62094 #### [facility],[address] [place] [address] CO2 [Moles/Vol] 24.7 mmol/L Normal 21.0 - 31.0 [facility] Comment on above: Performed By: #### 2 61964 #### [facility],[address] [place] [address] GFR/1.73 sq M predicted among non-blacks MDRD (S/P/Bld) [Vol rate/Area] 27 ML/MINUTE Low 60 - 999 [facility] Comment on above: Performed By: #### 2 47688 #### [facility],[address] [place] [address] GFR/1.73 sq M predicted among non-blacks MDRD (S/P/Bld) [Vol rate/Area] 33 ML/MINUTE Low 60 - 999 [facility] Comment on above: Result Comment: ACCO RDING TO THE NATIONAL KIDNEY DISEASE EDUCATION PROGRAM(NKDE), A NORMAL eGFR IS A VALUE GREATER THAN OR EQUAL TO 60 ML/MIN/1.73 SQ METERS. CHRONIC KIDNEY DISEASE: <60mL/MIN/1.73 SQ METERS KIDNEY FAILURE: <15mL/MIN/1.73 SQ METERS THIS TEST SHOULD ONLY BE USED FOR PATIENTS 18 YEARS OF AGE AND OLDER. Performed By: #### 2 75032 #### [address] [address] GFR/1.73 sq M predicted among non-blacks MDRD (S/P/Bld) [Vol rate/Area] Normal [facility] Comment on above: Result Comment: BASI C METABOLIC PANEL Performed By: #### 2 65124 #### [address] [address] Glucose [Mass/Vol] 113 mg/dL High 74 - 106 [facility] Comment on above: Performed By: #### 2 29122 #### [facility],[address] [place] [address] Potassium [Moles/Vol] 4.1 mmol/L Normal 3.5 - 5.1 [facility] Comment on above: Performed By: #### 2 29940 #### [facility],[address] [place] [address] Urea nitrogen [Mass/Vol] 24 mg/dL High 6 - 20 [facility] Comment on above: Performed By: #### 2 68349 #### [address] [address] CBC + DIFFon 05-05-2020 Basophils (Bld) [#/Vol] 0.10 x10EE3/UL Normal 0.00 - 0 .10 [facility] Comment on above: Performed By: #### 2 61361 #### [address] [address] Basophils/100 WBC (Bld) 0.9 % Normal 0.0 - 2.0 [facility] Comment on above: Performed By: #### 2 76567 #### [facility],[address] [place] [address] CBC + DIFF Normal [facility] Comment on above: Result Comment: CBC- COMPLETE BLOOD COUNT Performed By: #### 2 48270 #### [facility],[address] [place] [address] Eosinophils (Bld) [#/Vol] 0.40 x10EE3/UL Normal 0.00 - 0.50 [facility] Comment on above: Performed By: #### 2 17848 #### [facility],[address] [place] [address] Eosinophils/100 WBC (Bld) 5.4 % Normal 0.0 - 7.0 [facility] Comment on above: Performed By: #### 2 67922 #### [facility],[address] [place] [address] Erythrocyte distribution width (RBC) [Ratio] 12.7 % Normal 12.0 - 15.6 [facility] Comment on above: Performed By: #### 2 33386 #### [facility],[address] [place] [address] Hematocrit (Bld) [Volume fraction] 37.0 % Low 40.0 - 52.0 [facility] Comment on above: Performed By: #### 2 86159 #### [facility],[address] [place], [place] [address] Hemoglobin (Bld) [Mass/Vol] 13.0 g/dL Normal 13.0 - 17.5 [facility] Comment on above: Performed By: #### 2 02864 #### [facility],[address] [place], [place] [address] Lymphocytes (Bld) [#/Vol] 1.50 x10EE3/UL Normal 0.80 - 2.80 [facility] Comment on above: Performed By: #### 2 46737 #### [facility],[address] [place] [address] Lymphocytes/100 WBC (Bld) 18.7 % Low 20.0 - 45. 0 [facility] Comment on above: Performed By: #### 2 57664 #### [facility],[address] [place] [address] MANUAL DIFF N/A Normal [facility] Comment on above: Performed By: #### 2 65131 #### [facility],[address] [place] [address] MCH (RBC) [Entitic mass] 31 pg Normal 27 - 33 [facility] Comment on above: Performed By: #### 2 34256 #### [facility],[address] [place] [address] MCHC (RBC) [Mass/Vol] 35 X10 3 Normal 32 - 36 [facility] Comment on above: Performed By: #### 2 74416 #### [facility],[address] [place] [address] MCV (RBC) [Entitic vol] 87 fL Normal 81 - 98 [facility] Comment on above: Performed By: #### 2 05368 #### [facility],[address] [place] [address] Monocytes (Bld) [#/Vol] 1.20 x10EE3/UL High 0.20 - 1 .00 [facility] Comment on above: Performed By: #### 2 37593 #### [facility],[address] [place] [address] MONOS % 14.8 % High 0.0 - 10.0 [facility] Comment on above: Performed By: #### 2 30771 #### [facility],[address] [place] [address] Morphology Crispin (Bld) [Interp] N/A Normal [facility] Comment on above: Performed By: #### 2 47918 #### [facility],[address] [place] [address] Neutrophils (Bld) [#/Vol] 4.80 x10EE3/UL Normal 1.50 - 7.10 [facility] Comment on above: Performed By: #### 2 61428 #### [facility],[address] [place] [address] Neutrophils/100 WBC (Bld) 60.2 % Normal 46.0 - 76. 0 [facility] Comment on above: Performed By: #### 2 [id number] #### [facility],[address] [place] [address] 60017 Platelet mean volume (Bld) [Entitic vol] 7.2 fL Normal 6.4 - 10.5 [facility] Comment on above: Result Comment: AUTO MATED DIFFERENTIAL Performed By: #### 2 82222 #### [facility],[address] [place] [address] 42762 Platelets (Bld) [#/Vol] 286 x10EE3/UL Normal 150 - 450 [facility] Comment on above: Performed By: #### 2 01793 #### [facility],[address] [place] [address] 27704 RBC (Bld) [#/Vol] 4.24 x 10EE6/UL Low 4.50 - 6.00 [facility] Comment on above: Performed By: #### 2 51979 #### [facility],[address] [place] [address] 08160 WBC (Bld) [#/Vol] 8.0 x 10EE3/UL Normal 4.5 - 10.8 [facility] Comment on above: Performed By: #### 2 03672 #### [facility],[address] [place] [address] 77135 CULTURE URINEon 05-05-2020 CULTURE URINE CULTURE URINE _URINE CULTURE_ M I C R O B I O L O G Y R E P O R T FINAL Antimicrobial Susceptibility and Organism Identification Report Specimen Number : [id number] Requested : 05/05/20 Specimen Source : URINE Collected : 05/05/20 03:00 [employer] [place] : REJITerra HUANG Received : 05/05/20 03:00 Requesting Physician : FLORECITA ------ Patient/Specimen Tests and Comments Specimen Comments FINAL REPORT: NO GROWTH AT 48 HOURS ------ Tech : Source : URINE ID # : [id number] FINAL Report Date : / / : Collected : 05/05/20 03:00 05/07/20.1244.KLS. 05/06/20.0705.JLN. 05/07/20.1245.KLS.COM PLETE Normal [facility] Comment on above: Performed By: #### 2 68784 #### [facility],[address] [place] [address] 85419 LITHIUMon 05-05-2020 [place] [Moles/Vol] 0.9 mmol/L Normal 0.6 - 1.2 [facility] Comment on above: Performed By: #### 2 28157 #### [facility],[address] [place] [address] 39452 RENAL FUNCTION PANELon 05-05 Albumin [Mass/Vol] 3.3 g/dL Low 3.4 - 4.8 [facility] Comment on above: Performed By: #### 2 27660 #### [facility],[address] [place] [address] 11308 B/C RATIO 10 ratio Normal 0 - 30 [facility] Comment on above: Performed By: #### 2 37366 #### [facility],[address] [place] [address] 62517 Chloride [Moles/Vol] 107 mmol/L Normal 98 - 107 [facility] Comment on above: Performed By: #### 2 78420 #### [facility],[address] [place] [address] 68671 Creatinine [Mass/Vol] 2.5 mg/dL High 0.7 - 1.3 [facility] Comment on above: Performed By: #### 2 99125 #### [facility],[address] [place] [address] 45512 Phosphate [Mass/Vol] 4.9 mg/dL Normal 2.7 - 4.9 [facility] Comment on above: Performed By: #### 2 49257 #### [facility],[address] [place] [address] 85968 RENAL FUNCTION PANEL Normal [facility] Comment on above: Result Comment: JESSICA L FUNCTION PANEL Performed By: #### 2 88559 #### [facility],[address] [place] [address] 16686 Sodium [Moles/Vol] 139 mmol/L Normal 136 - 145 [facility] Comment on above: Performed By: #### 2 73949 #### [facility],[address] [place] [address] 70271 URINALYSISon 05-05-2020 Bilirubin [Mass/Vol] Negative Normal NORMAL: NEGATIVE [facility] Comment on above: Performed By: #### 2 63845 #### [facility],[address] [place] [address] 54577 Blood Negative Normal NORMAL: NEGATIVE [facility] Comment on above: Performed By: #### 2 18722 #### [facility],[address] [place] [address] 55190 Clarity (U) clear Normal NORMAL: CLEAR [facility] Comment on above: Performed By: #### 2 72567 #### [facility],[address] [place] [address] 57374 Color (U) yellow Normal NORMAL: YELLOW [facility] Comment on above: Performed By: #### 2 30586 #### [facility],[address] [place] [address] 72031 Glucose [Mass/Vol] NORM Normal NORMAL: NORMAL [facility] Comment on above: Performed By: #### 2 76336 #### [facility],[address] [place] [address] 63817 Ketone Negative Normal NORMAL: NEGATIVE [facility] Comment on above: Performed By: #### 2 48013 #### [facility],[address] [place] [address] 20604 Microscopic NOT INDICATED Normal [facility] Comment on above: Performed By: #### 2 51749 #### [facility],[address] [place] [address] Nitrite Ql (U) Negative Normal NORMAL: NEGATIVE [facility] Comment on above: Performed By: #### 2 86373 #### [facility],[address] [place] [address] pH (Bld) 6 Normal NORMAL: 5.0-8.0 [facility] Comment on above: Performed By: #### 2 14545 #### [facility],[address] [place] [address] Protein (U) [Mass/Vol] Negative Normal JENN L: NEGATIVE [facility] Comment on above: Performed By: #### 2 18929 #### [facility],[address] [place] [address] Sp [place] 1.020 Normal NORMAL: 1.010-1.030 [facility] Comment on above: Performed By: #### 2 60873 #### [facility],[address] [place] [address] Specimen type Nom (Spec) UNSPECIFIED Normal [facility] Comment on above: Performed By: #### 2 80686 #### [facility],[address] [place], [place] [id number] Urobilinog NORM Normal NORMAL: NORMAL [facility] Comment on above: Performed By: #### 2 17615 #### [facility],[address] [place] [address] 29993 WBC (Bld) [#/Vol] Negative Normal NORMAL: NEGATIVE [facility] Comment on above: Performed By: #### 2 71239 #### [facility],[address] [place], [place] [id number] CBC + DIFFon 04-08-2020 Basophils (Bld) [#/Vol] 0.10 x10EE3/UL Normal 0.00 - 0 .10 [facility] Comment on above: Performed By: #### 2 38775 ####[facility],[address] [place], [place] [address] Basophils/100 WBC (Bld) 1.2 % Normal 0.0 - 2.0 [facility] Comment on above: Performed By: #### 2 27802 ####[facility],[address] [place] [address] CBC + DIFF Normal [facility] Comment on above: Result Comment: CBC- COMPLETE BLOOD COUNT Performed By: #### 2 06087 ####[facility],[address] [place] [address] Eosinophils (Bld) [#/Vol] 0.40 x10EE3/UL Normal 0.00 - 0.50 [facility] Comment on above: Performed By: #### 2 24210 ####[facility],[address] [place], [place] [address] Eosinophils/100 WBC (Bld) 4.3 % Normal 0.0 - 7.0 [facility] Comment on above: Performed By: #### 2 62772 ####[place] [address] Erythrocyte distribution width (RBC) [Ratio] 12.9 % Normal 12.0 - 15.6 [facility] Comment on above: Performed By: #### 2 19282 ####[facility],[address] [place] [address] Hematocrit (Bld) [Volume fraction] 38.7 % Low 40.0 - 52.0 [facility] Comment on above: Performed By: #### 2 16067 ####[facility],[address] [place] [address] Hemoglobin (Bld) [Mass/Vol] 13.4 g/dL Normal 13.0 - 17.5 [facility] Comment on above: Performed By: #### 2 92229 ####[facility] [place] [address] 54185 Lymphocytes (Bld) [#/Vol] 1.80 x10EE3/UL Normal 0.80 - 2.80 [facility] Comment on above: Performed By: #### 2 43830 ####[facility],[address] [place] [address] 47626 Lymphocytes/100 WBC (Bld) 21.9 % Normal 20.0 - 45. 0 [facility] Comment on above: Performed By: #### 2 20738 ####[facility],[address] [place] [address] 73505 MANUAL DIFF N/A Normal [facility] Comment on above: Performed By: #### 2 93944 ####[facility],[address] [place] [address] 81912 MCH (RBC) [Entitic mass] 31 pg Normal 27 - 33 [facility] Comment on above: Performed By: #### 2 83483 ####[facility],[address] [place] [address] 93735 MCHC (RBC) [Mass/Vol] 35 X10 3 Normal 32 - 36 [facility] Comment on above: Performed By: #### 2 83991 ####[facility],[address] [place] [address] 36580 MCV (RBC) [Entitic vol] 88 fL Normal 81 - 98 [facility] Comment on above: Performed By: #### 2 03224 ####[facility],[address] [place] [address] 42369 Monocytes (Bld) [#/Vol] 1.20 x10EE3/UL High 0.20 - 1 .00 [facility] Comment on above: Performed By: #### 2 34184 ####[facility],[address] [place] [address] 64826 MONOS % 14.1 % High 0.0 - 10.0 [facility] Comment on above: Performed By: #### 2 25646 ####[facility],[address] [place] [address] 68299 Morphology Cris[place] (Bld) [Interp] N/A Normal [facility] Comment on above: Performed By: #### 2 54086 ####[facility],[address] [place] [address] 68600 Neutrophils (Bld) [#/Vol] 4.90 x10EE3/UL Normal 1.50 - 7.10 [facility] Comment on above: Performed By: #### 2 42026 ####[facility],[address] [place] [address] 83442 Neutrophils/100 WBC (Bld) 58.5 % Normal 46.0 - 76. 0 [facility] Comment on above: Performed By: #### 2 55627 ####[facility],[address] [place] [address] 13979 Platelet mean volume (Bld) [Entitic vol] 7.4 fL Normal 6.4 - 10.5 [facility] Comment on above: Result Comment: AUTO MATED DIFFERENTIAL Performed By: #### 2 82104 ####[facility],[address] [place] [address] 54600 Platelets (Bld) [#/Vol] 268 x10EE3/UL Normal 150 - 450 [facility] Comment on above: Performed By: #### 2 75178 ####[facility],[address] [place] [address] 02306 RBC (Bld) [#/Vol] 4.41 x 10EE6/UL Low 4.50 - 6.00 [facility] Comment on above: Performed By: #### 2 53305 ####[facility],[address] [place] [address] 63559 WBC (Bld) [#/Vol] 8.3 x 10EE3/UL Normal 4.5 - 10.8 [facility] Comment on above: Performed By: #### 2 92350 ####[facility],[address] [place] [address] 71884 CULTURE URINEon 04-08-2020 CULTURE URINE CULTURE URINE _URINE CULTURE_ M I C R O B I O L O G Y R E P O R T FINAL Antimicrobial Susceptibility and Organism Identification Report Specimen Number : [id number] Requested : 04/08/20 Specimen Source : CLEAN CATCH URINE Collected : 04/08/20 06:28 [employer] [place] : MEME UHANG Received : 04/08/20 06:28 Requesting Physician : FLORECITA ------ Patient/Specimen Tests and Comments Specimen Comments FINAL REPORT: NO GROWTH AT 48 HOURS ------ Tech : Source : CLEAN CATCH URINE ID # : [id number] FINAL Report Date : / / : Collected : 04/08/20 06:28 04/10/20.1059.BKO. 04/09/20.1214.KLS. 04/10/20.1059.Curasight.Voyat PLETE Normal [facility] Comment on above: Performed By: #### 2 53339 #### [facility],[address] [place] [address] 80573 HEPATIC FUNCTION PANELon Albumin [Mass/Vol] 3.4 g/dL Normal 3.4 - 4.8 [facility] Comment on above: Performed By: #### 2 82603 ####[facility],[address] [place] [address] 99231 Performed By: #### 2 59490 ####[facility],[address] [place] [address] 59328 ALK PHOS 65 U/L Normal 38 - 126 [facility] Comment on above: Performed By: #### 2 91384 ####[facility],[address] [place] [address] 90439 ALT/SGPT 16 U/L Normal 10 - 40 [facility] Comment on above: Performed By: #### 2 89729 ####[facility],[address] [place] [address] 62265 AST/SGOT 10 U/L Low 13 - 39 [facility] Comment on above: Performed By: #### 2 07251 ####[facility],[address] [place] [address] 89530 Bilirubin [Mass/Vol] 0.4 mg/dL Normal 0.0 - 1.5 [facility] Comment on above: Performed By: #### 2 12203 ####[facility],[address] [place] [address] 90672 Bilirubin.direct [Mass/Vol] 0.1 mg/dL Normal 0.0 - 0.1 [facility] Comment on above: Performed By: #### 2 53826 ####[facility],[address] [place] [address] HEPATIC FUNCTION PANEL Normal [facility] Comment on above: Result Comment: HEPA TIC FUNCTION PROFILE Performed By: #### 2 49376 ####[facility],[address] [place] [address] 61752 Protein [Mass/Vol] 5.4 g/dL Low 6.4 - 8.3 [facility] Comment on above: Performed By: #### 2 23307 ####[facility],[address] [place] [address] 03579 LITHIUMon 04-08-2020 [place] [Moles/Vol] 0.7 mmol/L Normal 0.6 - 1.2 [facility] Comment on above: Performed By: #### 2 79370 ####[facility],[address] [place], [place] [address] RENAL FUNCTION PANELon 04-08 B/C RATIO 11 ratio Normal 0 - 30 [facility] Comment on above: Performed By: #### 2 64272 ####[facility],[address] [place] [address] 15245 Calcium [Mass/Vol] 9.5 mg/dL Normal 8.6 - 10.2 [facility] Comment on above: Performed By: #### 2 50356 ####[facility],[address] [place] [address] 12670 Chloride [Moles/Vol] 105 mmol/L Normal 98 - 107 [facility] Comment on above: Performed By: #### 2 12500 ####[facility],[address] [place] [address] 67834 CO2 [Moles/Vol] 25.4 mmol/L Normal 21.0 - 31.0 [facility] Comment on above: Performed By: #### 2 30540 ####[facility],[address] [place] [address] 54036 Creatinine [Mass/Vol] 2.1 mg/dL High 0.7 - 1.3 [facility] Comment on above: Performed By: #### 2 80138 ####[facility],[address] [place] [address] 81796 Glucose [Mass/Vol] 105 mg/dL Normal 74 - 106 [facility] Comment on above: Performed By: #### 2 37854 ####[facility],[address] [place] [address] 19645 Phosphate [Mass/Vol] 5.2 mg/dL High 2.7 - 4.9 [facility] Comment on above: Performed By: #### 2 19492 ####[facility],[address] [place] [address] 34425 Potassium [Moles/Vol] 3.8 mmol/L Normal 3.5 - 5.1 [facility] Comment on above: Performed By: #### 2 00496 ####[facility],[address] [place] [address] 57891 RENAL FUNCTION PANEL Normal [facility] Comment on above: Result Comment: JESSICA L FUNCTION PANEL Performed By: #### 2 28028 ####[facility],[address] [place] [address] 22174 Sodium [Moles/Vol] 139 mmol/L Normal 136 - 145 [facility] Comment on above: Performed By: #### 2 39861 ####[facility],[address] [place] [address] 51881 Urea nitrogen [Mass/Vol] 23 mg/dL High 6 - 20 [facility] Comment on above: Performed By: #### 2 31338 ####[facility],[address] [place] [address] 41709 URINALYSISon 04-08-2020 Bilirubin [Mass/Vol] Negative Normal NORMAL: NEGATIVE [facility] Comment on above: Performed By: #### 2 02405 #### [facility],[address] [place] [address] 36400 Blood Negative Normal NORMAL: NEGATIVE [facility] Comment on above: Performed By: #### 2 89583 #### [facility],[address] [place] [address] 98669 Clarity (U) clear Normal NORMAL: CLEAR [facility] Comment on above: Performed By: #### 2 93587 #### [facility],[address] [place], [place] [address] Color (U) p.yel Normal NORMAL: YELLOW [facility] Comment on above: Performed By: #### 2 86723 #### [facility],[address] [place] [address] 47998 Glucose [Mass/Vol] NORM Normal NORMAL: NORMAL [facility] Comment on above: Performed By: #### 2 08142 #### [facility],[address] [place] [address] 23985 Ketone Negative Normal NORMAL: NEGATIVE [facility] Comment on above: Performed By: #### 2 78838 #### [facility],[address] [place] [address] 18672 Microscopic NOT INDICATED Normal [facility] Comment on above: Performed By: #### 2 36070 #### [facility],[address] [place] [address] 40642 Nitrite Ql (U) Negative Normal NORMAL: NEGATIVE [facility] Comment on above: Performed By: #### 2 14841 #### [facility],[address] [place] [address] 73341 pH (Bld) 6 Normal NORMAL: 5.0-8.0 [facility] Comment on above: Performed By: #### 2 43779 #### [facility],[address] [place] [address] 73380 Protein (U) [Mass/Vol] Negative Normal JENN L: NEGATIVE [facility] Comment on above: Performed By: #### 2 53973 #### [facility],[address] [place] [address] 04934 Sp [place] 1.020 Normal NORMAL: 1.010-1.030 [facility] Comment on above: Performed By: #### 2 34960 #### [facility],[address] [place] [address] 88273 Specimen type Nom (Spec) Clean catch Normal [facility] Comment on above: Performed By: #### 2 51206 #### [facility],[address] [place] [address] 68503 Urobilinog NORM Normal NORMAL: NORMAL [facility] Comment on above: Performed By: #### 2 00258 #### [facility],[address] [place] [address] 27781 WBC (Bld) [#/Vol] Negative Normal NORMAL: NEGATIVE [facility] Comment on above: Performed By: #### 2 52469 #### [facility],[address] [place] [address] 18151 URINE CREATININE AND PROTEIN RATIOon 04-08-2020 CREATININE UR 146.3 mg/dl Normal [facility] Comment on above: Performed By: #### 2 15190 ####[facility],[address] [place] [address] 44917 PC RATIO 0.06 mg/dL Normal 0.00 - 10.00 [facility] Comment on above: Performed By: #### 2 10051 ####[facility],[address] [place] [address] 45017 Protein (U) [Mass/Vol] 9.00 mg/dL Normal 0.00 - 10.00 [facility] Comment on above: Performed By: #### 2 68646 ####[facility],[address] [place] [address] 95000 HGB A1C [CCL]on 03-18-2020 HbA1c (Bld) [Mass fraction] 117 mg/dL Normal [facility] Comment on above: Result Comment: eAG: (Estimated average glucose) is a calculated value from HgbA1c and is guest service representative of the average blood glucose level in the last 2-3 month period. [facility] [address] [place] [address] Dre Gilliland III, M.D. [id number] Performed By: #### 2 03807 ####[place] [id number] HbA1c (Bld) [Mass fraction] 5.7 % High 4.3-5.6 [facility] Comment on above: Result Comment: [place] Diabetes Association guidelines indicate that patients with HgbA1c in the range 5.7-6.4% are at increased risk for development of diabetes, and intervention by lifestyle modification may be beneficial. HgbA1c greater or equal to 6.5% is considered diagnostic of diabetes. Performed By: #### 2 31644 ####[facility],[address] [place] [address] 83131 Hemoglobin A1con 03-18-2020 HbA1c (Bld) [Mass fraction] 5.7 % High 4.3-5.6 [facility] Comment on above: Performed By: #### H BA1C #### [facility] [address] [place] [address] HbA1c (Bld) [Mass fraction] 117 mg/dL Normal [facility] Comment on above: Performed By: #### H BA1C #### [facility] [address] [place] [address] LIPID PROFILEon 03-17-2020 Cholesterol [Mass/Vol] 133 mg/dL Normal 0 - 200 [facility] Comment on above: Performed By: #### 2 39458 ####[facility],[address] [place] [address] 91790 Cholesterol in HDL [Mass/Vol] 29 mg/dL Low 40 - 60 [facility] Comment on above: Performed By: #### 2 34935 ####[facility],[address] [place] [address] 45186 Cholesterol in LDL [Mass/Vol] 59 mg/dL Normal 0 - 129 [facility] Comment on above: Performed By: #### 2 78160 ####[facility],[address] [place] [address] 95915 Cholesterol.total/Choleste rol in HDL [Mass ratio] 4.6 {ratio} Normal 0.0 - 5.0 [facility] Comment on above: Performed By: #### 2 [id number] ####[facility],[address] [place] [address] 82080 Lipid 1996 panel Normal [facility] Comment on above: Result Comment: LIPI D PROFILE Performed By: #### 2 [id number] ####[facility],[address] [place] [address] 52732 Triglyceride [Mass/Vol] 224 mg/dL High 0 - 150 [facility] Comment on above: Performed By: #### 2 55395 ####[facility],[address] [place] [address] 82818 TSHon 03-17-2020 TSH Qn 0.99 uIU/ml Normal 0.34 - 5.60 [facility] Comment on above: Performed By: #### 2 33439 ####[facility],[address] [place] [address] 94021 URINE CREATININE AND PROTEIN RATIOon 03-11-2020 CREATININE UR 65.8 mg/dl Normal [facility] Comment on above: Performed By: #### 2 54948 ####[facility],[address] [place] [address] 02318 PC RATIO 0.06 mg/dL Normal 0.00 - 10.00 [facility] Comment on above: Performed By: #### 2 48148 ####[facility],[address] [place] [address] 39138 Protein (U) [Mass/Vol] mg/dL Normal 0.00 - 10.00 [facility] Comment on above: Performed By: #### 2 40417 ####[facility],[address] [place] [address] 39115 CBC + DIFFon 03-10-2020 Basophils (Bld) [#/Vol] 0.10 x10EE3/UL Normal 0.00 - 0 .10 [facility] Comment on above: Performed By: #### 2 16309 #### [facility],[address] [place] [address] 07327 Basophils/100 WBC (Bld) 1.3 % Normal 0.0 - 2.0 [facility] Comment on above: Performed By: #### 2 70626 #### [facility],[address] [place] [address] 86021 CBC + DIFF Normal [facility] Comment on above: Result Comment: CBC- COMPLETE BLOOD COUNT Performed By: #### 2 21826 #### [facility],[address] [place] [address] 93484 Eosinophils (Bld) [#/Vol] 0.40 x10EE3/UL Normal 0.00 - 0.50 [facility] Comment on above: Performed By: #### 2 40070 #### [facility],[address] [place] [address] 96282 Eosinophils/100 WBC (Bld) 5.7 % Normal 0.0 - 7.0 [facility] Comment on above: Performed By: #### 2 87774 #### [facility],[address] [place] [address] 08372 Erythrocyte distribution width (RBC) [Ratio] 13.3 % Normal 12.0 - 15.6 [facility] Comment on above: Performed By: #### 2 06193 #### [facility],[address] [place] [address] 79117 Hematocrit (Bld) [Volume fraction] 40.4 % Normal 40.0 - 52.0 [facility] Comment on above: Performed By: #### 2 68073 #### [facility],[address] [place] [address] 06626 Hemoglobin (Bld) [Mass/Vol] 13.8 g/dL Normal 13.0 - 17.5 [facility] Comment on above: Performed By: #### 2 43259 #### [facility],[address] [place] [address] 53481 Lymphocytes (Bld) [#/Vol] 1.30 x10EE3/UL Normal 0.80 - 2.80 [facility] Comment on above: Performed By: #### 2 76917 #### [facility],[address] [place] [address] 50997 Lymphocytes/100 WBC (Bld) 20.1 % Normal 20.0 - 45. 0 [facility] Comment on above: Performed By: #### 2 56868 #### [facility],[address] [place] [address] 03078 MANUAL DIFF N/A Normal [facility] Comment on above: Performed By: #### 2 07347 #### [facility],[address] [place] [address] 08228 MCH (RBC) [Entitic mass] 30 pg Normal 27 - 33 [facility] Comment on above: Performed By: #### 2 74392 #### [facility],[address] [place] [address] 80952 MCHC (RBC) [Mass/Vol] 34 X10 3 Normal 32 - 36 [facility] Comment on above: Performed By: #### 2 91040 #### [facility],[address] [place] [address] 46952 MCV (RBC) [Entitic vol] 88 fL Normal 81 - 98 [facility] Comment on above: Performed By: #### 2 51096 #### [facility],[address] [place] [address] 21390 Monocytes (Bld) [#/Vol] 0.90 x10EE3/UL Normal 0.20 - 1 .00 [facility] Comment on above: Performed By: #### 2 32628 #### [facility],[address] [place] [address] 65238 MONOS % 13.7 % High 0.0 - 10.0 [facility] Comment on above: Performed By: #### 2 22578 #### [place] [address] Morphology Crispin (Bld) [Interp] N/A Normal [facility] Comment on above: Performed By: #### 2 68490 #### [address] [address] Neutrophils (Bld) [#/Vol] 3.80 x10EE3/UL Normal 1.50 - 7.10 [facility] Comment on above: Performed By: #### 2 71137 #### [place] [address] Neutrophils/100 WBC (Bld) 59.2 % Normal 46.0 - 76. 0 [facility] Comment on above: Performed By: #### 2 44323 #### [place] [address] Platelet mean volume (Bld) [Entitic vol] 7.8 fL Normal 6.4 - 10.5 [facility] Comment on above: Result Comment: AUTO MATED DIFFERENTIAL Performed By: #### 2 65354 #### [place] [address] Platelets (Bld) [#/Vol] 291 x10EE3/UL Normal 150 - 450 [facility] Comment on above: Performed By: #### 2 10098 #### [address],[place] [address] RBC (Bld) [#/Vol] 4.57 x 10EE6/UL Normal 4.50 - 6.00 [facility] Comment on above: Performed By: #### 2 50476 #### [facility],[address] [place] [address] 80017 WBC (Bld) [#/Vol] 6.4 x 10EE3/UL Normal 4.5 - 10.8 [facility] Comment on above: Performed By: #### 2 80916 #### [facility],[address] [place] [address] 03967 LITHIUMon 03-10-2020 [place] [Moles/Vol] 0.8 mmol/L Normal 0.6 - 1.2 [facility] Comment on above: Performed By: #### 2 06214 #### [facility],[address] [place], [place] [address] RENAL FUNCTION PANEL WITH eG FRon 03-10-2020 Age - Reported 54 years Normal [facility] Comment on above: Performed By: #### 2 89295 ####[facility],[address] [place] [address] 52475 Albumin [Mass/Vol] 3.5 g/dL Normal 3.4 - 4.8 [facility] Comment on above: Performed By: #### 2 41782 ####[facility],[address] [place] [address] 36268 B/C RATIO 8 ratio Normal 0 - 30 [facility] Comment on above: Performed By: #### 2 48827 ####[facility],[address] [place] [address] 03908 Calcium [Mass/Vol] 9.4 mg/dL Normal 8.6 - 10.2 [facility] Comment on above: Performed By: #### 2 42714 ####[facility],[address] [place] [address] 21088 Chloride [Moles/Vol] 106 mmol/L Normal 98 - 107 [facility] Comment on above: Performed By: #### 2 39661 ####[facility],[address] [place] [address] 37683 CO2 [Moles/Vol] 26.1 mmol/L Normal 21.0 - 31.0 [facility] Comment on above: Performed By: #### 2 16297 ####[address] [address] Creatinine [Mass/Vol] 2.5 mg/dL High 0.7 - 1.3 [facility] Comment on above: Performed By: #### 2 60560 ####[facility],[address] [place] [address] 67468 GFR/1.73 sq M predicted among non-blacks MDRD (S/P/Bld) [Vol rate/Area] 33 ML/MINUTE Low 60 - 999 [facility] Comment on above: Result Comment: ACCO RDING TO THE NATIONAL KIDNEY DISEASE EDUCATION PROGRAM(NKDE), A NORMAL eGFR IS A VALUE GREATER THAN OR EQUAL TO 60 ML/MIN/1.73 SQ METERS. CHRONIC KIDNEY DISEASE: <60mL/MIN/1.73 SQ METERS KIDNEY FAILURE: <15mL/MIN/1.73 SQ METERS THIS TEST SHOULD ONLY BE USED FOR PATIENTS 18 YEARS OF AGE AND OLDER. Performed By: #### 2 09749 ####[facility],[address] [place] [address] 66943 GFR/1.73 sq M predicted among non-blacks MDRD (S/P/Bld) [Vol rate/Area] 27 ML/MINUTE Low 60 - 999 [facility] Comment on above: Performed By: #### 2 04316 ####[address] [address] Glucose [Mass/Vol] 114 mg/dL High 74 - 106 [facility] Comment on above: Performed By: #### 2 84286 ####[facility],[address] [place] [address] 62224 Phosphate [Mass/Vol] 4.6 mg/dL Normal 2.7 - 4.9 [facility] Comment on above: Performed By: #### 2 31753 ####[facility],[address] [place] [address] 55997 Potassium [Moles/Vol] 3.9 mmol/L Normal 3.5 - 5.1 [facility] Comment on above: Performed By: #### 2 69013 ####[facility],[address] [place] [address] 40238 RENAL FUNCTION PANEL WITH eGFR Normal [facility] Comment on above: Result Comment: JESSICA L FUNCTION PANEL Performed By: #### 2 13072 ####[facility],[address] [place] [address] 35041 Sodium [Moles/Vol] 139 mmol/L Normal 136 - 145 [facility] Comment on above: Performed By: #### 2 06016 ####[facility],[address] [place] [address] 15086 Urea nitrogen [Mass/Vol] 21 mg/dL High 6 - 20 [facility] Comment on above: Performed By: #### 2 76785 ####[facility],[address] [place] [address] 51292 CBC + DIFFon 02-04-2020 Basophils (Bld) [#/Vol] 0.10 x10EE3/UL Normal 0.00 - 0 .10 [facility] Comment on above: Performed By: #### 2 07241 #### [facility],[address] [place] [address] 16713 Basophils/100 WBC (Bld) 1.3 % Normal 0.0 - 2.0 [facility] Comment on above: Performed By: #### 2 21719 #### [facility],[address] [place] [address] 78892 CBC + DIFF Normal [facility] Comment on above: Result Comment: CBC- COMPLETE BLOOD COUNT Performed By: #### 2 83929 #### [facility],[address] [place] [address] Eosinophils (Bld) [#/Vol] 0.40 x10EE3/UL Normal 0.00 - 0.50 [facility] Comment on above: Performed By: #### 2 81342 #### [facility],[address] [place], [place] [address] Eosinophils/100 WBC (Bld) 5.6 % Normal 0.0 - 7.0 [facility] Comment on above: Performed By: #### 2 13725 #### [place] [address] Erythrocyte distribution width (RBC) [Ratio] 13.2 % Normal 12.0 - 15.6 [facility] Comment on above: Performed By: #### 2 78889 #### [place] [address] Hematocrit (Bld) [Volume fraction] 38.7 % Low 40.0 - 52.0 [facility] Comment on above: Performed By: #### 2 02228 #### [place] [address] Hemoglobin (Bld) [Mass/Vol] 13.2 g/dL Normal 13.0 - 17.5 [facility] Comment on above: Performed By: #### 2 26865 #### [place] [id number] Lymphocytes (Bld) [#/Vol] 1.40 x10EE3/UL Normal 0.80 - 2.80 [facility] Comment on above: Performed By: #### 2 12184 #### [place] [phone] Lymphocytes/100 WBC (Bld) 18.1 % Low 20.0 - 45. 0 [facility] Comment on above: Performed By: #### 2 68043 #### [facility],[address] [place] [address] MANUAL DIFF N/A Normal [facility] Comment on above: Performed By: #### 2 94484 #### [facility],[address] [place] [address] MCH (RBC) [Entitic mass] 30 pg Normal 27 - 33 [facility] Comment on above: Performed By: #### 2 54311 #### [facility],[address] [place] [address] MCHC (RBC) [Mass/Vol] 34 X10 3 Normal 32 - 36 [facility] Comment on above: Performed By: #### 2 10901 #### [facility],[address] [place] [address] MCV (RBC) [Entitic vol] 88 fL Normal 81 - 98 [facility] Comment on above: Performed By: #### 2 67991 #### [facility],[address] [place], [place] [address] Monocytes (Bld) [#/Vol] 1.10 x10EE3/UL High 0.20 - 1 .00 [facility] Comment on above: Performed By: #### 2 53305 #### [place] [id number] MONOS % 13.6 % High 0.0 - 10.0 [facility] Comment on above: Performed By: #### 2 95960 #### [facility],[address] [place], [place] [address] Morphology Cris[place] (Bld) [Interp] N/A Normal [facility] Comment on above: Performed By: #### 2 45826 #### [place] [phone] Neutrophils (Bld) [#/Vol] 4.80 x10EE3/UL Normal 1.50 - 7.10 [facility] Comment on above: Performed By: #### 2 01788 #### [facility],[address] [place], [place] [address] Neutrophils/100 WBC (Bld) 61.4 % Normal 46.0 - 76. 0 [facility] Comment on above: Performed By: #### 2 56077 #### [facility],[address] [place] [address] Platelet mean volume (Bld) [Entitic vol] 7.7 fL Normal 6.4 - 10.5 [facility] Comment on above: Result Comment: AUTO MATED DIFFERENTIAL Performed By: #### 2 99199 #### [address] [address] Platelets (Bld) [#/Vol] 298 x10EE3/UL Normal 150 - 450 [facility] Comment on above: Performed By: #### 2 75242 #### [address] [address] RBC (Bld) [#/Vol] 4.40 x 10EE6/UL Low 4.50 - 6.00 [facility] Comment on above: Performed By: #### 2 02304 #### [address] [address] WBC (Bld) [#/Vol] 7.8 x 10EE3/UL Normal 4.5 - 10.8 [facility] Comment on above: Performed By: #### 2 99709 #### [address] [address] CULTURE URINEon 02-04-2020 CULTURE URINE CULTURE URINE _URINE CULTURE_ M I C R O B I O L O G Y R E P O R T FINAL Antimicrobial Susceptibility and Organism Identification Report Specimen Number : [id number] Requested : 02/04/20 Specimen Source : URINE Collected : 02/04/20 02:50 [place] of [employer]olation : MEME HUANG Received : 02/04/20 02:50 Requesting Physician : FLORECITA ------ Patient/Specimen Tests and Comments Specimen Comments FINAL REPORT: NO GROWTH AT 48 HOURS ------ Tech : Source : URINE ID # : [id number] FINAL Report Date : / / : Collected : 02/04/20 02:50 02/06/20.9.ARAVINDS. 02/05/20.0910.SAIGE. 02/06/20.1208.KLS.Voyat PAIGE Johnson [facility] Comment on above: Performed By: #### 2 09368 #### [facility],[address] [place] [address] 25813 RENAL FUNCTION PANEL WITH eG FRon 02-04-2020 Age - Reported 54 years Normal [facility] Comment on above: Performed By: #### 2 84267 #### [facility],[address] [place] [address] 18153 Albumin [Mass/Vol] 3.5 g/dL Normal 3.4 - 4.8 [facility] Comment on above: Performed By: #### 2 65215 #### [facility],[address] [place] [address] 05640 B/C RATIO 9 ratio Normal 0 - 30 [facility] Comment on above: Performed By: #### 2 01124 #### [facility],[address] [place] [address] 05907 Calcium [Mass/Vol] 9.4 mg/dL Normal 8.6 - 10.2 [facility] Comment on above: Performed By: #### 2 78766 #### [facility],[address] [place] [address] 49129 Chloride [Moles/Vol] 107 mmol/L Normal 98 - 107 [facility] Comment on above: Performed By: #### 2 10502 #### [facility],[address] [place] [address] 32597 CO2 [Moles/Vol] 25.6 mmol/L Normal 21.0 - 31.0 [facility] Comment on above: Performed By: #### 2 68245 #### [facility],[address] [place] [address] 15119 Creatinine [Mass/Vol] 2.4 mg/dL High 0.7 - 1.3 [facility] Comment on above: Performed By: #### 2 90000 #### [facility],[address] [place] [address] 82164 GFR/1.73 sq M predicted among non-blacks MDRD (S/P/Bld) [Vol rate/Area] 28 ML/MINUTE Low 60 - 999 [facility] Comment on above: Performed By: #### 2 33658 #### [address] [address] GFR/1.73 sq M predicted among non-blacks MDRD (S/P/Bld) [Vol rate/Area] 34 ML/MINUTE Low 60 - 999 [facility] Comment on above: Result Comment: ACCO RDING TO THE NATIONAL KIDNEY DISEASE EDUCATION PROGRAM(NKDE), A NORMAL eGFR IS A VALUE GREATER THAN OR EQUAL TO 60 ML/MIN/1.73 SQ METERS. CHRONIC KIDNEY DISEASE: <60mL/MIN/1.73 SQ METERS KIDNEY FAILURE: <15mL/MIN/1.73 SQ METERS THIS TEST SHOULD ONLY BE USED FOR PATIENTS 18 YEARS OF AGE AND OLDER. Performed By: #### 2 11327 #### [address] [address] Glucose [Mass/Vol] 114 mg/dL High 74 - 106 [facility] Comment on above: Performed By: #### 2 49035 #### [address] [address] Phosphate [Mass/Vol] 4.5 mg/dL Normal 2.7 - 4.9 [facility] Comment on above: Performed By: #### 2 67573 #### [facility],[address] [place] [address] 39110 Potassium [Moles/Vol] 3.8 mmol/L Normal 3.5 - 5.1 [facility] Comment on above: Performed By: #### 2 52813 #### [facility],[address] [place] [address] 80018 RENAL FUNCTION PANEL WITH eGFR Normal [facility] Comment on above: Result Comment: JESSICA L FUNCTION PANEL Performed By: #### 2 76336 #### [facility],[address] [place] [address] 12445 Sodium [Moles/Vol] 139 mmol/L Normal 136 - 145 [facility] Comment on above: Performed By: #### 2 05000 #### [facility],[address] [place] [address] 20119 Urea nitrogen [Mass/Vol] 22 mg/dL High 6 - [facility] Comment on above: Performed By: #### 2 68026 #### [facility],[address] [place] [address] 45827 URINALYSISon 02-04-2020 Amorphous NONE Normal [facility] Comment on above: Performed By: #### 2 96073 #### [facility],[address] [place] [address] 57359 Bacteria LM.HPF (Urine sed) [#/Area] NONE Normal [facility] Comment on above: Performed By: #### 2 69211 #### [facility],[address] [place] [address] 96494 Bilirubin [Mass/Vol] Negative Normal NORMAL: NEGATIVE [facility] Comment on above: Performed By: #### 2 20924 #### [facility],[address] [place] [address] 26118 Blood Negative Normal NORMAL: NEGATIVE [facility] Comment on above: Performed By: #### 2 54108 #### [facility],[address] [place] [address] 36001 Casts LM.LPF (Urine sed) [#/Area] NONE Normal [facility] Comment on above: Performed By: #### 2 07731 #### [facility],[address] [place] [address] 29002 Clarity (U) clear Normal NORMAL: CLEAR [facility] Comment on above: Performed By: #### 2 05400 #### [facility],[address] [place] [address] 44859 Color (U) yellow Normal NORMAL: YELLOW [facility] Comment on above: Performed By: #### 2 61598 #### [facility],[address] [place] [address] 29547 Crystals LM Nom (Urine sed) NONE Normal [facility] Comment on above: Performed By: #### 2 06102 #### [facility],[address] [place] [address] 08017 Epi Cells NONE Normal [facility] Comment on above: Performed By: #### 2 52726 #### [facility],[address] [place] [address] 44339 Glucose [Mass/Vol] NORM Normal NORMAL: NORMAL [facility] Comment on above: Performed By: #### 2 67734 #### [facility],[address] [place] [address] 29844 Ketone Negative Normal NORMAL: NEGATIVE [facility] Comment on above: Performed By: #### 2 33746 #### [facility],[address] [place] [address] 90224 Microscopic SEE BELOW Normal [facility] Comment on above: Result Comment: MICR OSCOPIC Performed By: #### 2 80411 #### [facility],[address] [place] [address] 15789 Mucous NONE Normal [facility] Comment on above: Performed By: #### 2 17370 #### [facility],[address] [place] [address] 34445 Nitrite Ql (U) Negative Normal NORMAL: NEGATIVE [facility] Comment on above: Performed By: #### 2 28228 #### [facility],[address] [place] [address] 73611 pH (Bld) 6 Normal NORMAL: 5.0-8.0 [facility] Comment on above: Performed By: #### 2 69527 #### [facility],[address] [place] [address] 82540 Protein (U) [Mass/Vol] Negative Normal JENN L: NEGATIVE [facility] Comment on above: Performed By: #### 2 54664 #### [facility],[address] [place] [address] 64854 Rbc NONE Normal 0-3/hpf [facility] Comment on above: Performed By: #### 2 98328 #### [facility],[address] [place] [address] Sp [place] 1.015 Normal NORMAL: 1.010-1.030 [facility] Comment on above: Performed By: #### 2 98137 #### [facility],[address] [place] [address] Specimen type Nom (Spec) Clean catch Normal [facility] Comment on above: Performed By: #### 2 00646 #### [facility],[address] [place] [address] Urobilinog NORM Normal NORMAL: NORMAL [facility] Comment on above: Performed By: #### 2 48718 #### [facility],[address] [place] [address] Wbc 1-5 Normal 0-5/hpf [facility] Comment on above: Performed By: #### 2 [id number] #### [facility],[address] [place], [place] [id number] WBC (Bld) [#/Vol] 25 Abnormal NORMAL: NEGATIVE [facility] Comment on above: Performed By: #### 2 [id number] #### [facility],[address] [place], [place] [id number] Yeast LM Ql (Urine sed) NONE Normal [facility] Comment on above: Performed By: #### 2 [id number] #### [facility],[address] [place], [place] [id number] URINE CREATININE AND PROTEIN RATIOon 02-04-2020 CREATININE UR 143.6 mg/dl Normal [facility] Comment on above: Performed By: #### 2 23735 #### [facility],[address] [place], [place] [id number] PC RATIO 0.05 mg/dL Normal 0.00 - 10.00 [facility] Comment on above: Performed By: #### 2 65650 #### [facility],[address] [place] [address] 58396 Protein (U) [Mass/Vol] 7.00 mg/dL Normal 0.00 - 10.00 [facility] Comment on above: Performed By: #### 2 14284 #### [facility],[address] [place] [address] 26935 ALBUMIN PLASMAon 01-07-2020 Albumin [Mass/Vol] 3.7 g/dL Normal 3.4 - 4.8 [facility] Comment on above: Performed By: #### 2 05445 #### [facility],[address] [place] [address] 61932 BMP with eGFRon 01-07-2020 Age - Reported 54 years Normal [facility] Comment on above: Performed By: #### 2 57661 #### [facility],[address] [place] [address] 72630 Anion gap [Moles/Vol] 13 mmol/L Normal 10 - 20 [facility] Comment on above: Performed By: #### 2 22230 #### [facility],[address] [place] [address] 56690 Calcium [Mass/Vol] 9.3 mg/dL Normal 8.6 - 10.2 [facility] Comment on above: Performed By: #### 2 47399 #### [facility],[address] [place] [address] 50133 Chloride [Moles/Vol] 108 mmol/L High 98 - 107 [facility] Comment on above: Performed By: #### 2 28840 #### [facility],[address] [place] [address] 24734 CO2 [Moles/Vol] 26.1 mmol/L Normal 21.0 - 31.0 [facility] Comment on above: Performed By: #### 2 26367 #### [facility],[address] [place] [address] 03175 Creatinine [Mass/Vol] 2.0 mg/dL High 0.7 - 1.3 [facility] Comment on above: Performed By: #### 2 01238 #### [facility],[address] [place] [address] 21753 GFR/1.73 sq M predicted among non-blacks MDRD (S/P/Bld) [Vol rate/Area] Normal [facility] Comment on above: Result Comment: BASI C METABOLIC PANEL Performed By: #### 2 62462 #### [facility],[address] [place] [address] 56661 GFR/1.73 sq M predicted among non-blacks MDRD (S/P/Bld) [Vol rate/Area] 42 ML/MINUTE Low 60 - 999 [facility] Comment on above: Result Comment: ACCO RDING TO THE NATIONAL KIDNEY DISEASE EDUCATION PROGRAM(NKDE), A NORMAL eGFR IS A VALUE GREATER THAN OR EQUAL TO 60 ML/MIN/1.73 SQ METERS. CHRONIC KIDNEY DISEASE: <60mL/MIN/1.73 SQ METERS KIDNEY FAILURE: <15mL/MIN/1.73 SQ METERS THIS TEST SHOULD ONLY BE USED FOR PATIENTS 18 YEARS OF AGE AND OLDER. Performed By: #### 2 86707 #### [facility],[address] [place] [address] 18727 GFR/1.73 sq M predicted among non-blacks MDRD (S/P/Bld) [Vol rate/Area] 35 ML/MINUTE Low 60 - 999 [facility] Comment on above: Performed By: #### 2 92671 #### [facility],[address] [place] [address] 28703 Glucose [Mass/Vol] 99 mg/dL Normal 74 - 106 [facility] Comment on above: Performed By: #### 2 19709 #### [facility],[address] [place] [address] 40105 Potassium [Moles/Vol] 3.8 mmol/L Normal 3.5 - 5.1 [facility] Comment on above: Performed By: #### 2 69508 #### [facility],[address] [place] [address] Sodium [Moles/Vol] 143 mmol/L Normal 136 - 145 [facility] Comment on above: Performed By: #### 2 55064 #### [facility],[address] [place] [address] Urea nitrogen [Mass/Vol] 22 mg/dL High 6 - 20 [facility] Comment on above: Performed By: #### 2 90854 #### [facility],[address] [place] [address] CBC + DIFFon 01-07-2020 Basophils (Bld) [#/Vol] 0.10 x10EE3/UL Normal 0.00 - 0 .10 [facility] Comment on above: Performed By: #### 2 99781 #### [facility],[address] [place], [place] [phone] Basophils/100 WBC (Bld) 1.0 % Normal 0.0 - 2.0 [facility] Comment on above: Performed By: #### 2 49914 #### [facility],[address] [place] [address] CBC + DIFF Normal [facility] Comment on above: Result Comment: CBC- COMPLETE BLOOD COUNT Performed By: #### 2 50341 #### [facility],[address] [place] [address] Eosinophils (Bld) [#/Vol] 0.30 x10EE3/UL Normal 0.00 - 0.50 [facility] Comment on above: Performed By: #### 2 64934 #### [facility],[address] [place] [address] 41154 Eosinophils/100 WBC (Bld) 3.3 % Normal 0.0 - 7.0 [facility] Comment on above: Performed By: #### 2 91130 #### [facility],[address],[place] [address] Erythrocyte distribution width (RBC) [Ratio] 13.1 % Normal 12.0 - 15.6 [facility] Comment on above: Performed By: #### 2 82985 #### [facility],[address] [place], [place] [phone] Hematocrit (Bld) [Volume fraction] 39.0 % Low 40.0 - 52.0 [facility] Comment on above: Performed By: #### 2 41949 #### [facility],[address] [place], [place] [address] Hemoglobin (Bld) [Mass/Vol] 13.4 g/dL Normal 13.0 - 17.5 [facility] Comment on above: Performed By: #### 2 63820 #### [facility],[address] [place] [address] 72750 Lymphocytes (Bld) [#/Vol] 1.90 x10EE3/UL Normal 0.80 - 2.80 [facility] Comment on above: Performed By: #### 2 37117 #### [facility],[address] [place] [address] 16353 Lymphocytes/100 WBC (Bld) 20.6 % Normal 20.0 - 45. 0 [facility] Comment on above: Performed By: #### 2 76425 #### [facility],[address] [place] [address] 45289 MANUAL DIFF N/A Normal [facility] Comment on above: Performed By: #### 2 67052 #### [facility],[address] [place] [address] 10560 MCH (RBC) [Entitic mass] 30 pg Normal 27 - 33 [facility] Comment on above: Performed By: #### 2 73730 #### [facility],[address] [place] [address] 02548 MCHC (RBC) [Mass/Vol] 34 X10 3 Normal 32 - 36 [facility] Comment on above: Performed By: #### 2 64552 #### [facility],[address] [place] [address] 08261 MCV (RBC) [Entitic vol] 88 fL Normal 81 - 98 [facility] Comment on above: Performed By: #### 2 87429 #### [facility],[address] [place] [address] 95381 Monocytes (Bld) [#/Vol] 0.90 x10EE3/UL Normal 0.20 - 1 .00 [facility] Comment on above: Performed By: #### 2 25546 #### [address] [address] MONOS % 10.0 % Normal 0.0 - 10.0 [facility] Comment on above: Performed By: #### 2 85879 #### [address] [address] Morphology Crispin (Bld) [Interp] N/A Normal [facility] Comment on above: Performed By: #### 2 07213 #### [address] [address] Neutrophils (Bld) [#/Vol] 5.90 x10EE3/UL Normal 1.50 - 7.10 [facility] Comment on above: Performed By: #### 2 18648 #### [address] [address] Neutrophils/100 WBC (Bld) 65.1 % Normal 46.0 - 76. 0 [facility] Comment on above: Performed By: #### 2 86792 #### [address] [address] Platelet mean volume (Bld) [Entitic vol] 7.7 fL Normal 6.4 - 10.5 [facility] Comment on above: Result Comment: AUTO MATED DIFFERENTIAL Performed By: #### 2 03388 #### [facility],[address] [place] [address] 73798 Platelets (Bld) [#/Vol] 260 x10EE3/UL Normal 150 - 450 [facility] Comment on above: Performed By: #### 2 10771 #### [facility],[address] [place] [address] RBC (Bld) [#/Vol] 4.41 x 10EE6/UL Low 4.50 - 6.00 [facility] Comment on above: Performed By: #### 2 06883 #### [facility],[address] [place] [address] 96063 WBC (Bld) [#/Vol] 9.1 x 10EE3/UL Normal 4.5 - 10.8 [facility] Comment on above: Performed By: #### 2 02162 #### [facility],[address] [place], [place] [address] CULTURE URINEon 01-07-2020 CULTURE URINE CULTURE URINE _URINE CULTURE_ M I C R O B I O L O G Y R E P O R T FINAL Antimicrobial Susceptibility and Organism Identification Report Specimen Number : [id number] Requested : 01/07/20 Specimen Source : CLEAN CATCH URINE Collected : 01/07/20 02:30 [employer] : MEME HUANG Received : 01/07/20 02:30 Requesting Physician : FLORECITA ------ Patient/Specimen Tests and Comments Specimen Comments FINAL REPORT: NO GROWTH AT 48 HOURS ------ Tech : Source : CLEAN CATCH URINE ID # : [id number] FINAL Report Date : / / : Collected : 01/07/20 02:30 01/09/20.1027.BKO. 01/08/20.1302.KLS. 01/09/20.1027.[employer] PLETE 01/09/20.1027.[employer] SystemsO.to [facility] via fax Normal [facility] Comment on above: Performed By: #### 2 25500 #### [facility],[address] [place] [address] 41721 LITHIUMon 01-07-2020 [place] [Moles/Vol] 0.6 mmol/L Normal 0.6 - 1.2 [facility] Comment on above: Performed By: #### 2 03756 #### [facility],[address] [place] [address] 09739 URINALYSISon 01-07-2020 Bilirubin [Mass/Vol] Negative Normal NORMAL: NEGATIVE [facility] Comment on above: Performed By: #### 2 18903 #### [facility],[address] [place] [address] 20184 Blood Negative Normal NORMAL: NEGATIVE [facility] Comment on above: Performed By: #### 2 63852 #### [facility],[address] [place] [address] 79604 Clarity (U) clear Normal NORMAL: CLEAR [facility] Comment on above: Performed By: #### 2 11529 #### [facility],[address] [place] [address] 00155 Color (U) p.yel Normal NORMAL: YELLOW [facility] Comment on above: Performed By: #### 2 59344 #### [facility],[address] [place], [place] [address] Glucose [Mass/Vol] NORM Normal NORMAL: NORMAL [facility] Comment on above: Performed By: #### 2 99940 #### [facility],[address] [place] [address] 46741 Ketone Negative Normal NORMAL: NEGATIVE [facility] Comment on above: Performed By: #### 2 35398 #### [facility],[address] [place] [address] 90728 Microscopic NOT INDICATED Normal [facility] Comment on above: Performed By: #### 2 35306 #### [facility],[address] [place] [address] 63321 Nitrite Ql (U) Negative Normal NORMAL: NEGATIVE [facility] Comment on above: Performed By: #### 2 49379 #### [facility],[address] [place] [address] 27207 pH (Bld) 6.5 Normal NORMAL: 5.0-8.0 [facility] Comment on above: Performed By: #### 2 95220 #### [facility],[address] [place] [address] 83926 Protein (U) [Mass/Vol] Negative Normal JENN L: NEGATIVE [facility] Comment on above: Performed By: #### 2 65637 #### [facility],[address] [place] [address] Sp [place] 1.010 Normal NORMAL: 1.010-1.030 [facility] Comment on above: Performed By: #### 2 61618 #### [facility],[address] [place] [address] Specimen type Nom (Spec) Clean catch Normal [facility] Comment on above: Performed By: #### 2 90615 #### [facility],[address] [place] [address] Urobilinog NORM Normal NORMAL: NORMAL [facility] Comment on above: Performed By: #### 2 15622 #### [facility],[address] [place] [address] WBC (Bld) [#/Vol] Negative Normal NORMAL: NEGATIVE [facility] Comment on above: Performed By: #### 2 70337 #### [facility],[address] [place], [place] [address] URINE CREATININE AND PROTEIN RATIOon 01-07-2020 CREATININE UR 75.6 mg/dl Normal [facility] Comment on above: Performed By: #### 2 20585 #### [facility],[address] [place], [place] [address] PC RATIO 0.07 mg/dL Normal 0.00 - 10.00 [facility] Comment on above: Performed By: #### 2 34648 #### [facility],[address] [place] [address] 78428 Protein (U) [Mass/Vol] mg/dL Normal 0.00 - 10.00 [facility] Comment on above: Performed By: #### 2 73619 #### [facility],[address] [place], [place] [address] CBC + DIFFon 12-10-2019 Basophils (Bld) [#/Vol] 0.10 x10EE3/UL Normal 0.00 - 0 .10 [facility] Comment on above: Performed By: #### 2 45030 #### [facility],[address] [place] [address] 81372 Basophils/100 WBC (Bld) 0.7 % Normal 0.0 - 2.0 [facility] Comment on above: Performed By: #### 2 22139 #### [facility],[address] [place] [address] 08924 CBC + DIFF Normal [facility] Comment on above: Result Comment: CBC- COMPLETE BLOOD COUNT Performed By: #### 2 86195 #### [facility],[address] [place] [address] 02601 Eosinophils (Bld) [#/Vol] 0.30 x10EE3/UL Normal 0.00 - 0.50 [facility] Comment on above: Performed By: #### 2 90294 #### [facility],[address] [place] [address] 13869 Eosinophils/100 WBC (Bld) 3.2 % Normal 0.0 - 7.0 [facility] Comment on above: Performed By: #### 2 26280 #### [facility],[address] [place] [address] 37095 Erythrocyte distribution width (RBC) [Ratio] 12.7 % Normal 12.0 - 15.6 [facility] Comment on above: Performed By: #### 2 10423 #### [facility],[address] [place] [address] 35911 Hematocrit (Bld) [Volume fraction] 38.7 % Low 40.0 - 52.0 [facility] Comment on above: Performed By: #### 2 17195 #### [facility],[address] [place] [address] 91806 Hemoglobin (Bld) [Mass/Vol] 13.4 g/dL Normal 13.0 - 17.5 [facility] Comment on above: Performed By: #### 2 33676 #### [facility],[address] [place] [address] 13218 Lymphocytes (Bld) [#/Vol] 2.10 x10EE3/UL Normal 0.80 - 2.80 [facility] Comment on above: Performed By: #### 2 38140 #### [facility],[address] [place], [place] [address] Lymphocytes/100 WBC (Bld) 21.3 % Normal 20.0 - 45. 0 [facility] Comment on above: Performed By: #### 2 99493 #### [facility],[address] [place] [address] MANUAL DIFF N/A Normal [facility] Comment on above: Performed By: #### 2 70317 #### [place] [id number] MCH (RBC) [Entitic mass] 31 pg Normal 27 - 33 [facility] Comment on above: Performed By: #### 2 93514 #### [address] [address] MCHC (RBC) [Mass/Vol] 35 X10 3 Normal 32 - 36 [facility] Comment on above: Performed By: #### 2 63493 #### [facility],[address] [place], [place] [address] MCV (RBC) [Entitic vol] 89 fL Normal 81 - 98 [facility] Comment on above: Performed By: #### 2 92209 #### [address] [address] Monocytes (Bld) [#/Vol] 1.00 x10EE3/UL Normal 0.20 - 1 .00 [facility] Comment on above: Performed By: #### 2 32409 #### [facility],[address] [place] [address] 71728 MONOS % 10.5 % High 0.0 - 10.0 [facility] Comment on above: Performed By: #### 2 50088 #### [facility],[address] [place] [address] 09961 Morphology Crispin (Bld) [Interp] N/A Normal [facility] Comment on above: Performed By: #### 2 73240 #### [address] [address] Neutrophils (Bld) [#/Vol] 6.30 x10EE3/UL Normal 1.50 - 7.10 [facility] Comment on above: Performed By: #### 2 92269 #### [address] [address] Neutrophils/100 WBC (Bld) 64.3 % Normal 46.0 - 76. 0 [facility] Comment on above: Performed By: #### 2 17858 #### [address] [address] Platelet mean volume (Bld) [Entitic vol] 7.4 fL Normal 6.4 - 10.5 [facility] Comment on above: Result Comment: AUTO MATED DIFFERENTIAL Performed By: #### 2 52095 #### [address] [address] Platelets (Bld) [#/Vol] 254 x10EE3/UL Normal 150 - 450 [facility] Comment on above: Performed By: #### 2 92295 #### [address] [address] RBC (Bld) [#/Vol] 4.34 x 10EE6/UL Low 4.50 - 6.00 [facility] Comment on above: Performed By: #### 2 88331 #### [address] [address] WBC (Bld) [#/Vol] 9.8 x 10EE3/UL Normal 4.5 - 10.8 [facility] Comment on above: Performed By: #### 2 96635 #### [facility],[address] [place] [address] CULTURE URINEon 12-10-2019 CULTURE URINE CULTURE URINE _URINE CULTURE_ M I C R O B I O L O G Y R E P O R T FINAL Antimicrobial Susceptibility and Organism Identification Report Specimen Number : [id number] Requested : 12/09/19 Specimen Source : CLEAN CATCH URINE Collected : 12/09/19 23:45 [employer] : MEME HUANG Received : 12/09/19 23:45 Requesting Physician : FLORECITA ------ Patient/Specimen Tests and Comments Specimen Comments FINAL REPORT: NO GROWTH AT 48 HOURS ------ Tech : Source : CLEAN CATCH URINE ID # : [id number] FINAL Report Date : / / : Collected : 12/09/19 23:45 12/12/19.[employer] Systems[employer]. 12/11/19.BKO. 12/12/19.[employer] PLETE 12/12/19.[employer] SystemsO.to [facility] via fax Normal [facility] Comment on above: Performed By: #### 2 67580 #### [facility],[address] [place], [place] [id number] LITHIUMon 12-10-2019 [place] [Moles/Vol] 0.6 mmol/L Normal 0.6 - 1.2 [facility] Comment on above: Performed By: #### 2 89692 #### [facility],[address] [place] [address]26 RENAL FUNCTION PANEL WITH eG FRon 12-10-2019 Age - Reported 54 years Normal [facility] Comment on above: Performed By: #### 2 04983 #### [facility],[address] [place] [address] 81341 Albumin [Mass/Vol] 3.6 g/dL Normal 3.4 - 4.8 [facility] Comment on above: Performed By: #### 2 39521 #### [facility],[address] [place] [address] 39701 B/C RATIO 12 ratio Normal 0 - 30 [facility] Comment on above: Performed By: #### 2 73846 #### [facility],[address] [place] [address] 31547 Calcium [Mass/Vol] 9.4 mg/dL Normal 8.6 - 10.2 [facility] Comment on above: Performed By: #### 2 48387 #### [facility],[address] [place] [address] 59200 Chloride [Moles/Vol] 105 mmol/L Normal 98 - 107 [facility] Comment on above: Performed By: #### 2 09254 #### [facility],[address] [place] [address] 35142 CO2 [Moles/Vol] 24.4 mmol/L Normal 21.0 - 31.0 [facility] Comment on above: Performed By: #### 2 91662 #### [facility],[address] [place] [address] 93727 Creatinine [Mass/Vol] 1.9 mg/dL High 0.7 - 1.3 [facility] Comment on above: Performed By: #### 2 21334 #### [facility],[address] [place] [address] 50024 GFR/1.73 sq M predicted among non-blacks MDRD (S/P/Bld) [Vol rate/Area] 37 ML/MINUTE Low 60 - 999 [facility] Comment on above: Performed By: #### 2 74924 #### [facility],[address] [place] [address] 36741 GFR/1.73 sq M predicted among non-blacks MDRD (S/P/Bld) [Vol rate/Area] 45 ML/MINUTE Low 60 - 999 [facility] Comment on above: Result Comment: ACCO RDING TO THE NATIONAL KIDNEY DISEASE EDUCATION PROGRAM(NKDE), A NORMAL eGFR IS A VALUE GREATER THAN OR EQUAL TO 60 ML/MIN/1.73 SQ METERS. CHRONIC KIDNEY DISEASE: <60mL/MIN/1.73 SQ METERS KIDNEY FAILURE: <15mL/MIN/1.73 SQ METERS THIS TEST SHOULD ONLY BE USED FOR PATIENTS 18 YEARS OF AGE AND OLDER. Performed By: #### 2 [id number] #### [facility],[address] [place] [address] 43681 Glucose [Mass/Vol] 106 mg/dL Normal 74 - 106 [facility] Comment on above: Performed By: #### 2 08515 #### [facility],[address] [place] [address] 89338 Phosphate [Mass/Vol] 5.0 mg/dL High 2.7 - 4.9 [facility] Comment on above: Performed By: #### 2 88435 #### [facility],[address] [place] [address] 33531 Potassium [Moles/Vol] 3.4 mmol/L Low 3.5 - 5.1 [facility] Comment on above: Performed By: #### 2 [id number] #### [facility],[address] [place] [address] 20196 RENAL FUNCTION PANEL WITH eGFR Normal [facility] Comment on above: Result Comment: JESSICA L FUNCTION PANEL Performed By: #### 2 28966 #### [facility],[address] [place] [address] 40293 Sodium [Moles/Vol] 139 mmol/L Normal 136 - 145 [facility] Comment on above: Performed By: #### 2 70731 #### [facility],[address] [place] [address] 69840 Urea nitrogen [Mass/Vol] 23 mg/dL High 6 - 20 [facility] Comment on above: Performed By: #### 2 [id number] #### [facility],[address] [place] [address] 93953 URINALYSISon 12-10-2019 Bilirubin [Mass/Vol] Negative Normal NORMAL: NEGATIVE [facility] Comment on above: Performed By: #### 2 38753 #### [facility],[address] [place] [address] 94172 Blood Negative Normal NORMAL: NEGATIVE [facility] Comment on above: Performed By: #### 2 24380 #### [facility],[address] [place] [address] 96963 Clarity (U) clear Normal NORMAL: CLEAR [facility] Comment on above: Performed By: #### 2 37068 #### [facility],[address] [place] [address] 28537 Color (U) p.yel Normal NORMAL: YELLOW [facility] Comment on above: Performed By: #### 2 28317 #### [facility],[address] [place] [address] 10255 Glucose [Mass/Vol] NORM Normal NORMAL: NORMAL [facility] Comment on above: Performed By: #### 2 07858 #### [facility],[address] [place], [place] [id number] Ketone Negative Normal NORMAL: NEGATIVE [facility] Comment on above: Performed By: #### 2 10680 #### [facility],[address] [place] [address] Microscopic NOT INDICATED Normal [facility] Comment on above: Performed By: #### 2 29719 #### [facility],[address] [place] [address] 54291 Nitrite Ql (U) Negative Normal NORMAL: NEGATIVE [facility] Comment on above: Performed By: #### 2 87636 #### [facility],[address] [place] [address] 69697 pH (Bld) 6 Normal NORMAL: 5.0-8.0 [facility] Comment on above: Performed By: #### 2 79772 #### [facility],[address] [place] [address] 90289 Protein (U) [Mass/Vol] Negative Normal JENN L: NEGATIVE [facility] Comment on above: Performed By: #### 2 97708 #### [facility],[address] [place] [address] 30178 Sp [place] 1.015 Normal NORMAL: 1.010-1.030 [facility] Comment on above: Performed By: #### 2 54489 #### [facility],[address] [place] [address] 62105 Specimen type Nom (Spec) Clean catch Normal [facility] Comment on above: Performed By: #### 2 50173 #### [facility],[address] [place] [address] 43631 Urobilinog NORM Normal NORMAL: NORMAL [facility] Comment on above: Performed By: #### 2 52300 #### [facility],[address] [place] [address] 97471 WBC (Bld) [#/Vol] Negative Normal NORMAL: NEGATIVE [facility] Comment on above: Performed By: #### 2 42429 #### [facility],[address] [place] [address] 73003 URINE CREATININE AND PROTEIN RATIOon 12-10-2019 CREATININE UR 97.1 mg/dl Normal [facility] Comment on above: Performed By: #### 2 21740 #### [facility],[address] [place] [address] 99752 PC RATIO 0.07 mg/dL Normal 0.00 - 10.00 [facility] Comment on above: Performed By: #### 2 98341 #### [facility],[address] [place] [address] 48965 Protein (U) [Mass/Vol] 7.00 mg/dL Normal 0.00 - 10.00 [facility] Comment on above: Performed By: #### 2 78946 #### [facility],[address] [place] [address] 67775 BMP with eGFRon 11-05-2019 Age - Reported 54 years Normal [facility] Comment on above: Performed By: #### 2 27782 #### [facility],[address] [place] [address] 22740 Anion gap [Moles/Vol] 12 mmol/L Normal 10 - 20 [facility] Comment on above: Performed By: #### 2 08386 #### [address] [address] Chloride [Moles/Vol] 105 mmol/L Normal 98 - 107 [facility] Comment on above: Performed By: #### 2 17356 #### [facility],[address] [place] [address] 18438 CO2 [Moles/Vol] 26.8 mmol/L Normal 21.0 - 31.0 [facility] Comment on above: Performed By: #### 2 25663 #### [address] [address] GFR/1.73 sq M predicted among non-blacks MDRD (S/P/Bld) [Vol rate/Area] 38 ML/MINUTE Low 60 - 999 [facility] Comment on above: Result Comment: ACCO RDING TO THE NATIONAL KIDNEY DISEASE EDUCATION PROGRAM(NKDE), A NORMAL eGFR IS A VALUE GREATER THAN OR EQUAL TO 60 ML/MIN/1.73 SQ METERS. CHRONIC KIDNEY DISEASE: <60mL/MIN/1.73 SQ METERS KIDNEY FAILURE: <15mL/MIN/1.73 SQ METERS THIS TEST SHOULD ONLY BE USED FOR PATIENTS 18 YEARS OF AGE AND OLDER. Performed By: #### 2 39213 #### [address] [address] GFR/1.73 sq M predicted among non-blacks MDRD (S/P/Bld) [Vol rate/Area] 31 ML/MINUTE Low 60 - 999 [facility] Comment on above: Performed By: #### 2 32714 #### [address] [address] GFR/1.73 sq M predicted among non-blacks MDRD (S/P/Bld) [Vol rate/Area] Normal [facility] Comment on above: Result Comment: BASI C METABOLIC PANEL Performed By: #### 2 83456 #### [place] [address],[place] [address] Potassium [Moles/Vol] 3.4 mmol/L Low 3.5 - 5.1 [facility] Comment on above: Performed By: #### 2 73446 #### [facility],[address] [place] [address] Sodium [Moles/Vol] 140 mmol/L Normal 136 - 145 [facility] Comment on above: Performed By: #### 2 62391 #### [facility],[address] [place], [place] [address] CBC + DIFFon 11-05-2019 Basophils (Bld) [#/Vol] 0.10 x10EE3/UL Normal 0.00 - 0 .10 [facility] Comment on above: Performed By: #### 2 87147 #### [facility],[address] [place] [address] 83727 Basophils/100 WBC (Bld) 0.9 % Normal 0.0 - 2.0 [facility] Comment on above: Performed By: #### 2 47235 #### [facility],[address] [place] [address] CBC + DIFF Normal [facility] Comment on above: Result Comment: CBC- COMPLETE BLOOD COUNT Performed By: #### 2 96685 #### [facility],[address] [place] [address] 88678 Eosinophils (Bld) [#/Vol] 0.40 x10EE3/UL Normal 0.00 - 0.50 [facility] Comment on above: Performed By: #### 2 07056 #### [facility],[address] [place] [address] 70073 Eosinophils/100 WBC (Bld) 3.9 % Normal 0.0 - 7.0 [facility] Comment on above: Performed By: #### 2 42313 #### [facility],[address],[place] [address] Erythrocyte distribution width (RBC) [Ratio] 12.4 % Normal 12.0 - 15.6 [facility] Comment on above: Performed By: #### 2 51923 #### [facility],[address] [place] [address] 09710 Hematocrit (Bld) [Volume fraction] 39.9 % Low 40.0 - 52.0 [facility] Comment on above: Performed By: #### 2 69602 #### [facility],[address] [place] [address] 59302 Hemoglobin (Bld) [Mass/Vol] 13.3 g/dL Normal 13.0 - 17.5 [facility] Comment on above: Performed By: #### 2 90687 #### [facility],[address] [place] [address] 83653 Lymphocytes (Bld) [#/Vol] 1.90 x10EE3/UL Normal 0.80 - 2.80 [facility] Comment on above: Performed By: #### 2 96918 #### [facility],[address] [place] [address] 94867 Lymphocytes/100 WBC (Bld) 20.3 % Normal 20.0 - 45. 0 [facility] Comment on above: Performed By: #### 2 42526 #### [facility],[address] [place] [address] 22266 MANUAL DIFF N/A Normal [facility] Comment on above: Performed By: #### 2 71683 #### [facility],[address] [place] [address] 41447 MCH (RBC) [Entitic mass] 30 pg Normal 27 - 33 [facility] Comment on above: Performed By: #### 2 29411 #### [facility],[address] [place] [address] 55745 MCHC (RBC) [Mass/Vol] 33 X10 3 Normal 32 - 36 [facility] Comment on above: Performed By: #### 2 65219 #### [facility],[address] [place] [address] 23356 MCV (RBC) [Entitic vol] 91 fL Normal 81 - 98 [facility] Comment on above: Performed By: #### 2 77347 #### [facility],[address] [place] [address] 45358 Monocytes (Bld) [#/Vol] 1.00 x10EE3/UL Normal 0.20 - 1 .00 [facility] Comment on above: Performed By: #### 2 31413 #### [facility],[address] [place] [address] 55565 MONOS % 10.5 % High 0.0 - 10.0 [facility] Comment on above: Performed By: #### 2 03925 #### [facility],[address] [place] [address] 78410 Morphology [place] (Bld) [Interp] N/A Normal [facility] Comment on above: Performed By: #### 2 12766 #### [facility],[address] [place] [address] 50736 Neutrophils (Bld) [#/Vol] 6.10 x10EE3/UL Normal 1.50 - 7.10 [facility] Comment on above: Performed By: #### 2 75015 #### [facility],[address] [place] [address] 01652 Neutrophils/100 WBC (Bld) 64.4 % Normal 46.0 - 76. 0 [facility] Comment on above: Performed By: #### 2 50613 #### [facility],[address] [place] [address] 72030 Platelet mean volume (Bld) [Entitic vol] 7.4 fL Normal 6.4 - 10.5 [facility] Comment on above: Result Comment: AUTO MATED DIFFERENTIAL Performed By: #### 2 99149 #### [facility],[address] [place] [address] 93288 Platelets (Bld) [#/Vol] 260 x10EE3/UL Normal 150 - 450 [facility] Comment on above: Performed By: #### 2 32141 #### [facility],[address] [place] [address] RBC (Bld) [#/Vol] 4.38 x 10EE6/UL Low 4.50 - 6.00 [facility] Comment on above: Performed By: #### 2 22422 #### [facility],[address] [place], [place] [address] WBC (Bld) [#/Vol] 9.4 x 10EE3/UL Normal 4.5 - 10.8 [facility] Comment on above: Performed By: #### 2 92756 #### [facility],[address] [place] [address] LITHIUMon 11-05-2019 [place] [Moles/Vol] 0.5 mmol/L Low 0.6 - 1.2 [facility] Comment on above: Performed By: #### 2 56628 #### [facility],[address] [place] [address] RENAL FUNCTION PANELon 11-05 Albumin [Mass/Vol] 3.5 g/dL Normal 3.4 - 4.8 [facility] Comment on above: Performed By: #### 2 03064 #### [facility],[address] [place] [address] B/C RATIO 9 ratio Normal 0 - 30 [facility] Comment on above: Performed By: #### 2 28089 #### [facility],[address] [place] [address] Calcium [Mass/Vol] 9.4 mg/dL Normal 8.6 - 10.2 [facility] Comment on above: Performed By: #### 2 94046 #### [facility],[address],[place] [address] Creatinine [Mass/Vol] 2.2 mg/dL High 0.7 - 1.3 [facility] Comment on above: Performed By: #### 2 18471 #### [facility],[address] [place] [address] Glucose [Mass/Vol] 105 mg/dL Normal 74 - 106 [facility] Comment on above: Performed By: #### 2 46374 #### [facility],[address] [place] [address] Phosphate [Mass/Vol] 4.3 mg/dL Normal 2.7 - 4.9 [facility] Comment on above: Performed By: #### 2 55690 #### [facility],[address] [place] [address] RENAL FUNCTION PANEL Normal [facility] Comment on above: Result Comment: JESSICA L FUNCTION PANEL Performed By: #### 2 79906 #### [facility],[address] [place] [address] Urea nitrogen [Mass/Vol] 20 mg/dL Normal 6 - 20 [facility] Comment on above: Performed By: #### 2 57927 #### [facility],[address] [place] [address] URINALYSISon 11-05-2019 Bilirubin [Mass/Vol] Negative Normal NORMAL: NEGATIVE [facility] Comment on above: Performed By: #### 2 16803 #### [facility],[address] [place] [address] Blood Negative Normal NORMAL: NEGATIVE [facility] Comment on above: Performed By: #### 2 87712 #### [facility],[address] [place] [address] Clarity (U) clear Normal NORMAL: CLEAR [facility] Comment on above: Performed By: #### 2 80741 #### [facility],[address] [place] [address] Color (U) p.yel Normal NORMAL: YELLOW [facility] Comment on above: Performed By: #### 2 14336 #### [facility],[address] [place] [address] 74960 Glucose [Mass/Vol] NORM Normal NORMAL: NORMAL [facility] Comment on above: Performed By: #### 2 50915 #### [facility],[address] [place] [address] 10719 Ketone Negative Normal NORMAL: NEGATIVE [facility] Comment on above: Performed By: #### 2 65340 #### [facility],[address] [place], [place] [phone] Microscopic NOT INDICATED Normal [facility] Comment on above: Performed By: #### 2 [id number] #### [facility],[address] [place], [place] [phone] Nitrite Ql (U) Negative Normal NORMAL: NEGATIVE [facility] Comment on above: Performed By: #### 2 30713 #### [facility],[address] [place], [place] [address] pH (Bld) 6.5 Normal NORMAL: 5.0-8.0 [facility] Comment on above: Performed By: #### 2 30151 #### [facility],[address] [place] [address] 07724 Protein (U) [Mass/Vol] Negative Normal JENN L: NEGATIVE [facility] Comment on above: Performed By: #### 2 82371 #### [facility],[address] [place] [address] 41794 Sp [place] 1.010 Normal NORMAL: 1.010-1.030 [facility] Comment on above: Performed By: #### 2 53214 #### [facility],[address] [place] [address] 99780 Specimen type Nom (Spec) UNSPECIFIED Normal [facility] Comment on above: Performed By: #### 2 23752 #### [facility],[address] [place] [address] 63796 Urobilinog NORM Normal NORMAL: NORMAL [facility] Comment on above: Performed By: #### 2 09895 #### [facility],[address] [place] [address] 53838 WBC (Bld) [#/Vol] Negative Normal NORMAL: NEGATIVE [facility] Comment on above: Performed By: #### 2 08092 #### [facility],[address] [place], [place] [id number] URINE CREATININE AND PROTEIN RATIOon 11-05-2019 CREATININE UR 72.6 mg/dl Normal [facility] Comment on above: Performed By: #### 2 98123 #### [facility],[address] [place] [address] PC RATIO 0.07 mg/dL Normal 0.00 - 10.00 [facility] Comment on above: Performed By: #### 2 91344 #### [facility],[address] [place] [address] 46885 Protein (U) [Mass/Vol] mg/dL Normal 0.00 - 10.00 [facility] Comment on above: Performed By: #### 2 56506 #### [facility],[address] [place], [place] [address] BMP with eGFRon 10-08-2019 Age - Reported 54 years Normal [facility] Comment on above: Performed By: #### 2 75467 #### [facility],[address] [place] [address] 25121 Anion gap [Moles/Vol] 12 mmol/L Normal 10 - 20 [facility] Comment on above: Performed By: #### 2 51732 #### [facility],[address] [place] [address] 73604 Calcium [Mass/Vol] 9.2 mg/dL Normal 8.6 - 10.2 [facility] Comment on above: Performed By: #### 2 37825 #### [facility],[address] [place] [address] 91201 Chloride [Moles/Vol] 107 mmol/L Normal 98 - 107 [facility] Comment on above: Performed By: #### 2 28136 #### [facility],[address] [place] [address] 09599 CO2 [Moles/Vol] 26.7 mmol/L Normal 21.0 - 31.0 [facility] Comment on above: Performed By: #### 2 87863 #### [facility],[address] [place] [address] 56267 Creatinine [Mass/Vol] 2.1 mg/dL High 0.7 - 1.3 [facility] Comment on above: Performed By: #### 2 08360 #### [facility],[address] [place] [address] 72608 GFR/1.73 sq M predicted among non-blacks MDRD (S/P/Bld) [Vol rate/Area] Normal [facility] Comment on above: Result Comment: BASI C METABOLIC PANEL Performed By: #### 2 57865 #### [facility],[address] [place] [address] 55424 GFR/1.73 sq M predicted among non-blacks MDRD (S/P/Bld) [Vol rate/Area] 40 ML/MINUTE Low 60 - 999 [facility] Comment on above: Result Comment: ACCO RDING TO THE NATIONAL KIDNEY DISEASE EDUCATION PROGRAM(NKDE), A NORMAL eGFR IS A VALUE GREATER THAN OR EQUAL TO 60 ML/MIN/1.73 SQ METERS. CHRONIC KIDNEY DISEASE: <60mL/MIN/1.73 SQ METERS KIDNEY FAILURE: <15mL/MIN/1.73 SQ METERS THIS TEST SHOULD ONLY BE USED FOR PATIENTS 18 YEARS OF AGE AND OLDER. Performed By: #### 2 79749 #### [facility],[address] [place] [address] 98875 GFR/1.73 sq M predicted among non-blacks MDRD (S/P/Bld) [Vol rate/Area] 33 ML/MINUTE Low 60 - 999 [facility] Comment on above: Performed By: #### 2 46168 #### [facility],[address] [place] [address] 53947 Glucose [Mass/Vol] 106 mg/dL Normal 74 - 106 [facility] Comment on above: Performed By: #### 2 68563 #### [facility],[address] [place] [address] 74591 Potassium [Moles/Vol] 3.6 mmol/L Normal 3.5 - 5.1 [facility] Comment on above: Performed By: #### 2 33378 #### [facility],[address] [place] [address] 82619 Sodium [Moles/Vol] 142 mmol/L Normal 136 - 145 [facility] Comment on above: Performed By: #### 2 50376 #### [facility],[address] [place], [place] [address] Urea nitrogen [Mass/Vol] 22 mg/dL High 6 - 20 [facility] Comment on above: Performed By: #### 2 79417 #### [facility],[address] [place] [address] 35936 CBC + DIFFon 10-08-2019 Basophils (Bld) [#/Vol] 0.10 x10EE3/UL Normal 0.00 - 0 .10 [facility] Comment on above: Performed By: #### 2 70548 #### [facility],[address] [place] [address] 00328 Basophils/100 WBC (Bld) 0.7 % Normal 0.0 - 2.0 [facility] Comment on above: Performed By: #### 2 71554 #### [facility],[address] [place] [address] 20590 CBC + DIFF Normal [facility] Comment on above: Result Comment: CBC- COMPLETE BLOOD COUNT Performed By: #### 2 [id number] #### [facility],[address] [place] [address] 68770 Eosinophils (Bld) [#/Vol] 0.50 x10EE3/UL Normal 0.00 - 0.50 [facility] Comment on above: Performed By: #### 2 82138 #### [facility],[address] [place] [address] 58193 Eosinophils/100 WBC (Bld) 5.1 % Normal 0.0 - 7.0 [facility] Comment on above: Performed By: #### 2 78502 #### [facility],[address] [place] [address] 44524 Erythrocyte distribution width (RBC) [Ratio] 12.8 % Normal 12.0 - 15.6 [facility] Comment on above: Performed By: #### 2 82774 #### [place] [id number] Hematocrit (Bld) [Volume fraction] 37.6 % Low 40.0 - 52.0 [facility] Comment on above: Performed By: #### 2 34919 #### [address] [address] Hemoglobin (Bld) [Mass/Vol] 12.5 g/dL Low 13.0 - 17.5 [facility] Comment on above: Performed By: #### 2 63985 #### [address] [address] Lymphocytes (Bld) [#/Vol] 1.90 x10EE3/UL Normal 0.80 - 2.80 [facility] Comment on above: Performed By: #### 2 66027 #### [address] [address]306 Lymphocytes/100 WBC (Bld) 18.6 % Low 20.0 - 45. 0 [facility] Comment on above: Performed By: #### 2 61086 #### [facility],[address] [place] [address] 38721 MANUAL DIFF N/A Normal [facility] Comment on above: Performed By: #### 2 [id number] #### [facility],[address] [place], [place] [id number] MCH (RBC) [Entitic mass] 31 pg Normal 27 - 33 [facility] Comment on above: Performed By: #### 2 [id number] #### [facility],[address] [place] [address] MCHC (RBC) [Mass/Vol] 33 X10 3 Normal 32 - 36 [facility] Comment on above: Performed By: #### 2 20246 #### [facility],[address] [place], [place] [phone] MCV (RBC) [Entitic vol] 93 fL Normal 81 - 98 [facility] Comment on above: Performed By: #### 2 71805 #### [facility],[address] [place], [place] [address] Monocytes (Bld) [#/Vol] 1.00 x10EE3/UL Normal 0.20 - 1 .00 [facility] Comment on above: Performed By: #### 2 [id number] #### [facility],[address] [place] [address] 73153 MONOS % 9.4 % Normal 0.0 - 10.0 [facility] Comment on above: Performed By: #### 2 03728 #### [facility],[address] [place] [address] 06562 Morphology Crispin (Bld) [Interp] N/A Normal [facility] Comment on above: Performed By: #### 2 75537 #### [facility],[address] [place] [address] Neutrophils (Bld) [#/Vol] 6.90 x10EE3/UL Normal 1.50 - 7.10 [facility] Comment on above: Performed By: #### 2 [id number] #### [facility],[address] [place], [place] [id number] Neutrophils/100 WBC (Bld) 66.2 % Normal 46.0 - 76. 0 [facility] Comment on above: Performed By: #### 2 [id number] #### [facility],[address] [place] [address] Platelet mean volume (Bld) [Entitic vol] 7.7 fL Normal 6.4 - 10.5 [facility] Comment on above: Result Comment: AUTO MATED DIFFERENTIAL Performed By: #### 2 49938 #### [address] [address] Platelets (Bld) [#/Vol] 250 x10EE3/UL Normal 150 - 450 [facility] Comment on above: Performed By: #### 2 94872 #### [address] [address] RBC (Bld) [#/Vol] 4.07 x 10EE6/UL Low 4.50 - 6.00 [facility] Comment on above: Performed By: #### 2 32105 #### [facility],[address] [place] [address] WBC (Bld) [#/Vol] 10.4 x 10EE3/UL Normal 4.5 - 10.8 [facility] Comment on above: Performed By: #### 2 15520 #### [address] [address] CULTURE URINEon 10-08-2019 CULTURE URINE CULTURE URINE _URINE CULTURE_ M I C R O B I O L O G Y R E P O R T FINAL Antimicrobial Susceptibility and Organism Identification Report Specimen Number : [id number] Requested : 10/08/19 Specimen Source : URINE Collected : 10/08/19 08:30 Arredondo of [place]olation : MEME HUANG Received : 10/08/19 08:30 Requesting Physician : FLORECITA ------ Patient/Specimen Tests and Comments Specimen Comments FINAL REPORT: NO GROWTH AT 48 HOURS ------ Tech : Source : URINE ID # : [id number] FINAL Report Date : / / : Collected : 10/08/19 08:30 10/10/19.1115.BKO. 10/09/19.1011.BKO. 10/10/19.1115.BKO.Voyat PAIGE [facility] Comment on above: Performed By: #### 2 [id number] #### [facility],[address] [place] [address] HEPATIC FUNCTION PANELon ALK PHOS 52 U/L Normal 38 - 126 [facility] Comment on above: Performed By: #### 2 97685 #### [facility],[address] [place] [address] 16125 ALT/SGPT 15 U/L Normal 10 - 40 [facility] Comment on above: Performed By: #### 2 79330 #### [facility],[address] [place] [address] 21764 AST/SGOT 9 U/L Low 13 - 39 [facility] Comment on above: Performed By: #### 2 90356 #### [facility],[address] [place] [address] 56368 Bilirubin [Mass/Vol] 0.3 mg/dL Normal 0.0 - 1.5 [facility] Comment on above: Performed By: #### 2 17552 #### [facility],[address] [place] [address] Bilirubin.direct [Mass/Vol] 0.1 mg/dL Normal 0.0 - 0.1 [facility] Comment on above: Performed By: #### 2 83400 #### [facility],[address] [place] [address] 28457 HEPATIC FUNCTION PANEL Normal [facility] Comment on above: Result Comment: HEPA TIC FUNCTION PROFILE Performed By: #### 2 23813 #### [facility],[address] [place] [address] 12010 Protein [Mass/Vol] 5.5 g/dL Low 6.4 - 8.3 [facility] Comment on above: Performed By: #### 2 24013 #### [facility],[address] [place] [address] 71449 LITHIUMon 10-08-2019 [place] [Moles/Vol] 0.6 mmol/L Normal 0.6 - 1.2 [facility] Comment on above: Performed By: #### 2 44786 #### [facility],[address] [place] [address] 12534 RENAL FUNCTION PANELon 10-08 Albumin [Mass/Vol] 3.5 g/dL Normal 3.4 - 4.8 [facility] Comment on above: Performed By: #### 2 31863 #### [facility],[address] [place], [place] [address] B/C RATIO 10 ratio Normal 0 - 30 [facility] Comment on above: Performed By: #### 2 78860 #### [facility],[address] [place] [address] 75658 Calcium [Mass/Vol] 9.2 mg/dL Normal 8.6 - 10.2 [facility] Comment on above: Performed By: #### 2 87482 #### [facility],[address] [place] [address] 62530 Chloride [Moles/Vol] 107 mmol/L Normal 98 - 107 [facility] Comment on above: Performed By: #### 2 98987 #### [facility],[address] [place] [address] 85069 CO2 [Moles/Vol] 26.7 mmol/L Normal 21.0 - 31.0 [facility] Comment on above: Performed By: #### 2 14457 #### [facility],[address] [place] [address] 37565 Creatinine [Mass/Vol] 2.1 mg/dL High 0.7 - 1.3 [facility] Comment on above: Performed By: #### 2 39390 #### [facility],[address] [place] [address] 87336 Glucose [Mass/Vol] 106 mg/dL Normal 74 - 106 [facility] Comment on above: Performed By: #### 2 76485 #### [facility],[address] [place] [address] 76769 Phosphate [Mass/Vol] 4.7 mg/dL Normal 2.7 - 4.9 [facility] Comment on above: Performed By: #### 2 74249 #### [facility],[address] [place] [address] 15186 Potassium [Moles/Vol] 3.6 mmol/L Normal 3.5 - 5.1 [facility] Comment on above: Performed By: #### 2 50059 #### [facility],[address] [place] [address] 89964 RENAL FUNCTION PANEL Normal [facility] Comment on above: Result Comment: JESSICA L FUNCTION PANEL Performed By: #### 2 98762 #### [facility],[address] [place] [address] 500[address] Sodium [Moles/Vol] 142 mmol/L Normal 136 - 145 [facility] Comment on above: Performed By: #### 2 71679 #### [facility],[address] [place] [address] 19315 Urea nitrogen [Mass/Vol] 22 mg/dL High 6 - 20 [facility] Comment on above: Performed By: #### 2 22134 #### [facility],[address] [place] [address] 13821 URINALYSISon 10-08-2019 Bilirubin [Mass/Vol] Negative Normal NORMAL: NEGATIVE [facility] Comment on above: Performed By: #### 2 17279 #### [facility],[address] [place] [address] 81983 Blood Negative Normal NORMAL: NEGATIVE [facility] Comment on above: Performed By: #### 2 72194 #### [facility],[address] [place] [address] 71558 Clarity (U) clear Normal NORMAL: CLEAR [facility] Comment on above: Performed By: #### 2 45311 #### [facility],[address] [place] [address] 22843 Color (U) p.yel Normal NORMAL: YELLOW [facility] Comment on above: Performed By: #### 2 42921 #### [facility],[address] [place] [address] 45980 Glucose [Mass/Vol] NORM Normal NORMAL: NORMAL [facility] Comment on above: Performed By: #### 2 39575 #### [facility],[address] [place] [address] Ketone Negative Normal NORMAL: NEGATIVE [facility] Comment on above: Performed By: #### 2 63736 #### [facility],[address] [place] [address] Microscopic NOT INDICATED Normal [facility] Comment on above: Performed By: #### 2 51439 #### [facility],[address] [place], [place] [phone] Nitrite Ql (U) Negative Normal NORMAL: NEGATIVE [facility] Comment on above: Performed By: #### 2 33937 #### [facility],[address] [place] [address] pH (Bld) 6 Normal NORMAL: 5.0-8.0 [facility] Comment on above: Performed By: #### 2 68523 #### [facility],[address] [place], [place] [address] Protein (U) [Mass/Vol] Negative Normal JENN L: NEGATIVE [facility] Comment on above: Performed By: #### 2 74272 #### [facility],[address] [place], [place] [address] Sp [place] 1.015 Normal NORMAL: 1.010-1.030 [facility] Comment on above: Performed By: #### 2 08125 #### [facility],[address] [place], [place] [phone] Specimen type Nom (Spec) Clean catch Normal [facility] Comment on above: Performed By: #### 2 78879 #### [facility],[address] [place] [address] 90308 Urobilinog NORM Normal NORMAL: NORMAL [facility] Comment on above: Performed By: #### 2 24858 #### [facility],[address] [place] [address] 41880 WBC (Bld) [#/Vol] Negative Normal NORMAL: NEGATIVE [facility] Comment on above: Performed By: #### 2 38005 #### [facility],[address] [place] [address] CBC + DIFFon 09-10-2019 Basophils (Bld) [#/Vol] 0.10 x10EE3/UL Normal 0.00 - 0 .10 [facility] Comment on above: Performed By: #### 2 10273 #### [facility],[address] [place] [address] 27869 Basophils/100 WBC (Bld) 1.0 % Normal 0.0 - 2.0 [facility] Comment on above: Performed By: #### 2 47653 #### [facility],[address] [place] [address] 77496 CBC + DIFF Normal [facility] Comment on above: Result Comment: CBC- COMPLETE BLOOD COUNT Performed By: #### 2 41167 #### [facility],[address] [place] [address] 01143 Eosinophils (Bld) [#/Vol] 0.50 x10EE3/UL Normal 0.00 - 0.50 [facility] Comment on above: Performed By: #### 2 71881 #### [facility],[address] [place] [address] 51583 Eosinophils/100 WBC (Bld) 6.3 % Normal 0.0 - 7.0 [facility] Comment on above: Performed By: #### 2 83587 #### [facility],[address] [place] [address] 08595 Erythrocyte distribution width (RBC) [Ratio] 13.3 % Normal 12.0 - 15.6 [facility] Comment on above: Performed By: #### 2 73295 #### [facility],[address] [place] [address] 37696 Hematocrit (Bld) [Volume fraction] 36.9 % Low 40.0 - 52.0 [facility] Comment on above: Performed By: #### 2 92362 #### [facility],[address] [place] [address] 59331 Hemoglobin (Bld) [Mass/Vol] 12.5 g/dL Low 13.0 - 17.5 [facility] Comment on above: Performed By: #### 2 32457 #### [facility],[address] [place] [address] 70178 Lymphocytes (Bld) [#/Vol] 2.20 x10EE3/UL Normal 0.80 - 2.80 [facility] Comment on above: Performed By: #### 2 61205 #### [facility],[address] [place] [address] 17171 Lymphocytes/100 WBC (Bld) 25.0 % Normal 20.0 - 45. 0 [facility] Comment on above: Performed By: #### 2 13607 #### [facility],[address] [place] [address] 69364 MANUAL DIFF N/A Normal [facility] Comment on above: Performed By: #### 2 03108 #### [facility],[address] [place] [address] 91300 MCH (RBC) [Entitic mass] 31 pg Normal 27 - 33 [facility] Comment on above: Performed By: #### 2 43918 #### [facility],[address] [place] [address] 13337 MCHC (RBC) [Mass/Vol] 34 X10 3 Normal 32 - 36 [facility] Comment on above: Performed By: #### 2 66813 #### [facility],[address] [place] [address] 13786 MCV (RBC) [Entitic vol] 93 fL Normal 81 - 98 [facility] Comment on above: Performed By: #### 2 93344 #### [facility],[address] [place] [address] 84860 Monocytes (Bld) [#/Vol] 0.90 x10EE3/UL Normal 0.20 - 1 .00 [facility] Comment on above: Performed By: #### 2 91222 #### [address] [address] MONOS % 10.6 % High 0.0 - 10.0 [facility] Comment on above: Performed By: #### 2 15557 #### [address] [address] Morphology Crispin (Bld) [Interp] N/A Normal [facility] Comment on above: Performed By: #### 2 81620 #### [address] [address] Neutrophils (Bld) [#/Vol] 5.00 x10EE3/UL Normal 1.50 - 7.10 [facility] Comment on above: Performed By: #### 2 63665 #### [address] [address] Neutrophils/100 WBC (Bld) 57.1 % Normal 46.0 - 76. 0 [facility] Comment on above: Performed By: #### 2 48763 #### [address] [address] Platelet mean volume (Bld) [Entitic vol] 7.6 fL Normal 6.4 - 10.5 [facility] Comment on above: Result Comment: AUTO MATED DIFFERENTIAL Performed By: #### 2 17137 #### [address],[place] [address] Platelets (Bld) [#/Vol] 236 x10EE3/UL Normal 150 - 450 [facility] Comment on above: Performed By: #### 2 59002 #### [facility],[address] [place] [address] 25831 RBC (Bld) [#/Vol] 3.99 x 10EE6/UL Low 4.50 - 6.00 [facility] Comment on above: Performed By: #### 2 34774 #### [facility],[address] [place] [address] 76220 WBC (Bld) [#/Vol] 8.7 x 10EE3/UL Normal 4.5 - 10.8 [facility] Comment on above: Performed By: #### 2 66369 #### [facility],[address] [place] [address] 25427 CULTURE URINEon 09-10-2019 CULTURE URINE CULTURE URINE _URINE CULTURE_ M I C R O B I O L O G Y R E P O R T FINAL Antimicrobial Susceptibility and Organism Identification Report Specimen Number : [id number] Requested : 09/10/19 Specimen Source : CLEAN CATCH URINE Collected : 09/10/19 04:30 Ar[employer] [place] : MEME HUANG Received : 09/10/19 04:30 Requesting Physician : FLORECITA ------ Patient/Specimen Tests and Comments Specimen Comments FINAL REPORT: NO GROWTH AT 48 HOURS ------ Tech : Source : CLEAN CATCH URINE ID # : [id number] FINAL Report Date : / / : Collected : 09/10/19 04:30 09/12/19.1053.BKO. 09/11/19.0717.JLN. 09/12/19.1053.BKO.Voyat PLETE 09/12/19105.BKO.to [facility] via fax Normal [facility] Comment on above: Performed By: #### 2 26452 #### [facility],[address] [place] [address] 86006 LITHIUMon 09-10-2019 [place] [Moles/Vol] 0.6 mmol/L Normal 0.6 - 1.2 [facility] Comment on above: Performed By: #### 2 39907 #### [facility],[address] [place] [address] 31665 RENAL FUNCTION PANEL WITH eG FRon 09-10-2019 Age - Reported 54 years Normal [facility] Comment on above: Performed By: #### 2 55471 #### [facility],[address] [place] [address] 60843 Albumin [Mass/Vol] 3.4 g/dL Normal 3.4 - 4.8 [facility] Comment on above: Performed By: #### 2 14167 #### [facility],[address] [place] [address] 32286 B/C RATIO 11 ratio Normal 0 - 30 [facility] Comment on above: Performed By: #### 2 04948 #### [facility],[address] [place] [address] 16568 Calcium [Mass/Vol] 9.2 mg/dL Normal 8.6 - 10.2 [facility] Comment on above: Performed By: #### 2 68380 #### [facility],[address] [place] [address] 63463 Chloride [Moles/Vol] 107 mmol/L Normal 98 - 107 [facility] Comment on above: Performed By: #### 2 41519 #### [facility],[address] [place] [address] 97776 CO2 [Moles/Vol] 25.3 mmol/L Normal 21.0 - 31.0 [facility] Comment on above: Performed By: #### 2 12365 #### [facility],[address] [place] [address] 82365 Creatinine [Mass/Vol] 2.2 mg/dL High 0.7 - 1.3 [facility] Comment on above: Performed By: #### 2 93285 #### [address] [address] GFR/1.73 sq M predicted among non-blacks MDRD (S/P/Bld) [Vol rate/Area] 31 ML/MINUTE Low 60 - 999 [facility] Comment on above: Performed By: #### 2 49501 #### [facility],[address] [place] [address] 40617 GFR/1.73 sq M predicted among non-blacks MDRD (S/P/Bld) [Vol rate/Area] 38 ML/MINUTE Low 60 - 999 [facility] Comment on above: Result Comment: ACCO RDING TO THE NATIONAL KIDNEY DISEASE EDUCATION PROGRAM(NKDE), A NORMAL eGFR IS A VALUE GREATER THAN OR EQUAL TO 60 ML/MIN/1.73 SQ METERS. CHRONIC KIDNEY DISEASE: <60mL/MIN/1.73 SQ METERS KIDNEY FAILURE: <15mL/MIN/1.73 SQ METERS THIS TEST SHOULD ONLY BE USED FOR PATIENTS 18 YEARS OF AGE AND OLDER. Performed By: #### 2 08799 #### [facility],[address] [place] [address] 68883 Glucose [Mass/Vol] 96 mg/dL Normal 74 - 106 [facility] Comment on above: Performed By: #### 2 93697 #### [facility],[address] [place] [address] 08984 Phosphate [Mass/Vol] 4.5 mg/dL Normal 2.7 - 4.9 [facility] Comment on above: Performed By: #### 2 80898 #### [facility],[address] [place] [address] 56467 Potassium [Moles/Vol] 3.5 mmol/L Normal 3.5 - 5.1 [facility] Comment on above: Performed By: #### 2 70469 #### [facility],[address] [place] [address] 67415 RENAL FUNCTION PANEL WITH eGFR Normal [facility] Comment on above: Result Comment: JESSICA L FUNCTION PANEL Performed By: #### 2 02907 #### [facility],[address] [place] [address] 47351 Sodium [Moles/Vol] 141 mmol/L Normal 136 - 145 [facility] Comment on above: Performed By: #### 2 92723 #### [facility],[address] [place] [address] Urea nitrogen [Mass/Vol] 24 mg/dL High 6 - 20 [facility] Comment on above: Performed By: #### 2 12546 #### [facility],[address] [place], [place] [address] URINALYSISon 09-10-2019 Bilirubin [Mass/Vol] Negative Normal NORMAL: NEGATIVE [facility] Comment on above: Performed By: #### 2 45764 #### [facility],[address] [place], [place] [address] Blood Negative Normal NORMAL: NEGATIVE [facility] Comment on above: Performed By: #### 2 40502 #### [facility],[address] [place] [address] Clarity (U) clear Normal NORMAL: CLEAR [facility] Comment on above: Performed By: #### 2 98359 #### [facility],[address] [place], [place] [phone] Color (U) p.yel Normal NORMAL: YELLOW [facility] Comment on above: Performed By: #### 2 88517 #### [facility],[address] [place], [place] [address] Glucose [Mass/Vol] NORM Normal NORMAL: NORMAL [facility] Comment on above: Performed By: #### 2 40002 #### [facility],[address] [place], [place] [address] Ketone Negative Normal NORMAL: NEGATIVE [facility] Comment on above: Performed By: #### 2 11620 #### [facility],[address] [place], [place] [phone] Microscopic NOT INDICATED Normal [facility] Comment on above: Performed By: #### 2 22056 #### [facility],[address] [place] [address] 85760 Nitrite Ql (U) Negative Normal NORMAL: NEGATIVE [facility] Comment on above: Performed By: #### 2 75862 #### [facility],[address] [place] [address] 87422 pH (Bld) 6.5 Normal NORMAL: 5.0-8.0 [facility] Comment on above: Performed By: #### 2 30845 #### [facility],[address] [place] [address] 79766 Protein (U) [Mass/Vol] Negative Normal JENN L: NEGATIVE [facility] Comment on above: Performed By: #### 2 77525 #### [facility],[address] [place] [address] Sp [place] 1.010 Normal NORMAL: 1.010-1.030 [facility] Comment on above: Performed By: #### 2 89545 #### [facility],[address] [place] [address] Specimen type Nom (Spec) Clean catch Normal [facility] Comment on above: Performed By: #### 2 60478 #### [facility],[address] [place] [address] Urobilinog NORM Normal NORMAL: NORMAL [facility] Comment on above: Performed By: #### 2 67986 #### [facility] [facility],[address] [place], [place] [id number] WBC (Bld) [#/Vol] Negative Normal NORMAL: NEGATIVE [facility] Comment on above: Performed By: #### 2 [id number] #### [facility],[address] [place], [place] [id number] URINE CREATININE AND PROTEIN RATIOon 09-10-2019 CREATININE UR 58.3 mg/dl Normal [facility] Comment on above: Performed By: #### 2 13622 #### [facility],[address] [place] [address] 70648 PC RATIO 0.09 mg/dL Normal 0.00 - 10.00 [facility] Comment on above: Performed By: #### 2 23442 #### [facility],[address] [place] [address] 78358 Protein (U) [Mass/Vol] mg/dL Normal 0.00 - 10.00 [facility] Comment on above: Performed By: #### 2 23942 #### [facility],[address] [place] [address] 69184 BMP with eGFRon 08-31-2019 Age - Reported 54 years Normal [facility] Comment on above: Performed By: #### 2 02639 #### [facility],[address] [place] [address] 57517 Anion gap [Moles/Vol] 12 mmol/L Normal 10 - 20 [facility] Comment on above: Performed By: #### 2 11382 #### [facility],[address] [place] [address] 94855 Calcium [Mass/Vol] 9.4 mg/dL Normal 8.6 - 10.2 [facility] Comment on above: Performed By: #### 2 75131 #### [facility],[address] [place] [address] 37703 Chloride [Moles/Vol] 104 mmol/L Normal 98 - 107 [facility] Comment on above: Performed By: #### 2 08557 #### [facility],[address] [place] [address] 79533 CO2 [Moles/Vol] 26.9 mmol/L Normal 21.0 - 31.0 [facility] Comment on above: Performed By: #### 2 19789 #### [facility],[address] [place] [address] 51396 Creatinine [Mass/Vol] 2.4 mg/dL High 0.7 - 1.3 [facility] Comment on above: Performed By: #### 2 35608 #### [facility],[address] [place] [address] 07315 GFR/1.73 sq M predicted among non-blacks MDRD (S/P/Bld) [Vol rate/Area] Normal [facility] Comment on above: Result Comment: BASI C METABOLIC PANEL Performed By: #### 2 63142 #### [facility],[address] [place] [address] 35166 GFR/1.73 sq M predicted among non-blacks MDRD (S/P/Bld) [Vol rate/Area] 28 ML/MINUTE Low 60 - 999 [facility] Comment on above: Performed By: #### 2 63460 #### [facility],[address] [place] [address] 11075 GFR/1.73 sq M predicted among non-blacks MDRD (S/P/Bld) [Vol rate/Area] 34 ML/MINUTE Low 60 - 999 [facility] Comment on above: Result Comment: ACCO RDING TO THE NATIONAL KIDNEY DISEASE EDUCATION PROGRAM(NKDE), A NORMAL eGFR IS A VALUE GREATER THAN OR EQUAL TO 60 ML/MIN/1.73 SQ METERS. CHRONIC KIDNEY DISEASE: <60mL/MIN/1.73 SQ METERS KIDNEY FAILURE: <15mL/MIN/1.73 SQ METERS THIS TEST SHOULD ONLY BE USED FOR PATIENTS 18 YEARS OF AGE AND OLDER. Performed By: #### 2 14431 #### [facility],[address] [place] [address] 69915 Glucose [Mass/Vol] 106 mg/dL Normal 74 - 106 [facility] Comment on above: Performed By: #### 2 08467 #### [facility],[address] [place] [address] 16873 Potassium [Moles/Vol] 3.5 mmol/L Normal 3.5 - 5.1 [facility] Comment on above: Performed By: #### 2 23366 #### [facility],[address] [place] [address] 41690 Sodium [Moles/Vol] 139 mmol/L Normal 136 - 145 [facility] Comment on above: Performed By: #### 2 23001 #### [facility],[address] [place] [address] 97073 Urea nitrogen [Mass/Vol] 25 mg/dL High 6 - 20 [facility] Comment on above: Performed By: #### 2 74313 #### [facility],[address] [place] [address] 44506 HGB A1C [CCL]on 08-26-2019 HbA1c (Bld) [Mass fraction] 117 mg/dL Normal [facility] Comment on above: Result Comment: eAG: (Estimated average glucose) is a calculated value from HgbA1c and is guest service representative of the average blood glucose level in the last 2-3 month period. [facility] [address] [place] [address] Peyton Lang M.D. [id number] Performed By: #### 2 92437 #### [place] [phone] HbA1c (Bld) [Mass fraction] 5.7 % High 4.3-5.6 [facility] Comment on above: Result Comment: Amer [place] Diabetes Association guidelines indicate that patients with HgbA1c in the range 5.7-6.4% are at increased risk for development of diabetes, and intervention by lifestyle modification may be beneficial. HgbA1c greater or equal to 6.5% is considered diagnostic of diabetes. Performed By: #### 2 02017 #### [facility],[address] [place] [address] 16320 Hemoglobin A1con 08-26-2019 HbA1c (Bld) [Mass fraction] 5.7 % High 4.3-5.6 [facility] Comment on above: Performed By: #### H BA1C #### [facility] Routine Lab [address] [place], [place] [address] HbA1c (Bld) [Mass fraction] 117 mg/dL Normal [facility] Comment on above: Performed By: #### H BA1C #### [facility]ine Lab [address] [place], [place] [address] RENAL FUNCTION PANELon 08-14 Albumin [Mass/Vol] 3.2 g/dL Low 3.4 - 4.8 [facility] Comment on above: Performed By: #### 2 12408 #### [facility],[address] [place] [address] 51053 B/C RATIO 13 ratio Normal 0 - 30 [facility] Comment on above: Performed By: #### 2 05205 #### [facility],[address] [place] [address] 79991 Calcium [Mass/Vol] 8.8 mg/dL Normal 8.6 - 10.2 [facility] Comment on above: Performed By: #### 2 68582 #### [facility],[address] [place] [address] 66989 Chloride [Moles/Vol] 105 mmol/L Normal 98 - 107 [facility] Comment on above: Performed By: #### 2 65696 #### [facility],[address] [place] [address] 68871 CO2 [Moles/Vol] 29.8 mmol/L Normal 21.0 - 31.0 [facility] Comment on above: Performed By: #### 2 79947 #### [facility],[address] [place] [address] 21883 Creatinine [Mass/Vol] 2.0 mg/dL High 0.7 - 1.3 [facility] Comment on above: Performed By: #### 2 08689 #### [facility],[address] [place] [address] 86068 Glucose [Mass/Vol] 78 mg/dL Normal 74 - 106 [facility] Comment on above: Performed By: #### 2 26510 #### [facility],[address] [place] [address] 55095 Phosphate [Mass/Vol] 4.8 mg/dL Normal 2.7 - 4.9 [facility] Comment on above: Performed By: #### 2 98225 #### [facility],[address] [place] [address] 34872 Potassium [Moles/Vol] 3.9 mmol/L Normal 3.5 - 5.1 [facility] Comment on above: Performed By: #### 2 25106 #### [facility],[address] [place] [address] 53697 RENAL FUNCTION PANEL Normal [facility] Comment on above: Result Comment: JESSICA L FUNCTION PANEL Performed By: #### 2 18932 #### [facility],[address] [place] [address] 94756 Sodium [Moles/Vol] 141 mmol/L Normal 136 - 145 [facility] Comment on above: Performed By: #### 2 86541 #### [facility],[address] [place] [address] 68988 Urea nitrogen [Mass/Vol] 25 mg/dL High 6 - 20 [facility] Comment on above: Performed By: #### 2 67727 #### [facility],[address] [place] [address] 97679 CBC (NO DIFF)on 08-06-2019 CBC (NO DIFF) Normal [facility] Comment on above: Result Comment: CBC( WITHOUT DIFFERENTIAL) Performed By: #### 2 06900 #### [facility],[address] [place] [address] 16585 Erythrocyte distribution width (RBC) [Ratio] 13.2 % Normal 12.0 - 15.6 [facility] Comment on above: Performed By: #### 2 01825 #### [facility],[address] [place] [address] 49981 Hematocrit (Bld) [Volume fraction] 37.7 % Low 40.0 - 52.0 [facility] Comment on above: Performed By: #### 2 44608 #### [facility],[address] [place] [address] 01422 Hemoglobin (Bld) [Mass/Vol] 12.9 g/dL Low 13.0 - 17.5 [facility] Comment on above: Performed By: #### 2 96956 #### [facility],[address] [place] [address] 09923 MCH (RBC) [Entitic mass] 32 pg Normal 27 - 33 [facility] Comment on above: Performed By: #### 2 25630 #### [facility],[address] [place] [address] 36024 MCHC (RBC) [Mass/Vol] 34 X10 3 Normal 32 - 36 [facility] Comment on above: Performed By: #### 2 89257 #### [facility],[address] [place] [address] 76932 MCV (RBC) [Entitic vol] 94 fL Normal 81 - 98 [facility] Comment on above: Performed By: #### 2 43692 #### [facility],[address] [place] [address] 52702 Platelet mean volume (Bld) [Entitic vol] 7.3 fL Normal 6.4 - 10.5 [facility] Comment on above: Performed By: #### 2 65883 #### [facility],[address] [place] [address] 11369 Platelets (Bld) [#/Vol] 166 x10EE3/UL Normal 150 - 450 [facility] Comment on above: Performed By: #### 2 00739 #### [facility],[address] [place] [address] 81085 RBC (Bld) [#/Vol] 4.00 x 10EE6/UL Low 4.50 - 6.00 [facility] Comment on above: Performed By: #### 2 25049 #### [facility],[address] [place] [address] 06733 WBC (Bld) [#/Vol] 8.7 x 10EE3/UL Normal 4.5 - 10.8 [facility] Comment on above: Performed By: #### 2 43894 #### [facility],[address] [place] [address] 97543 CULTURE URINEon 08-06-2019 CULTURE URINE CULTURE URINE _URINE CULTURE_ M I C R O B I O L O G Y R E P O R T FINAL Antimicrobial Susceptibility and Organism Identification Report Specimen Number : [id number] Requested : 08/06/19 Specimen Source : CLEAN CATCH URINE Collected : 08/06/19 03:10 [place] of [place] : MEME HUANG Received : 08/06/19 03:10 Requesting Physician : FLORECITA ------ Patient/Specimen Tests and Comments Specimen Comments FINAL REPORT: NO GROWTH AT 48 HOURS ------ Tech : Source : CLEAN CATCH URINE ID # : [id number] FINAL Report Date : / / : Collected : 08/06/19 03:10 08/08/19.1104.BKO. 08/07/19.0711.JLN. 08/08/19.1105.Curasight.Voyat PLETE Normal [facility] Comment on above: Performed By: #### 2 40610 #### [facility],[address] [place] [address] LITHIUMon 08-06-2019 [place] [Moles/Vol] 0.6 mmol/L Normal 0.6 - 1.2 [facility] Comment on above: Performed By: #### 2 79568 #### [facility],[address] [place] [address] MR MRI BRAIN W/O CONTRASTon 08-06-2019 MR MRI BRAIN W/O CONTRAST [facility] [place] [address] Patient: REGGIE LEÓN Phone#: : 1965 Age: 54 Gender: M Pt. Type: Out Account: [id number] Location: Ordering: HODA BERNABE Exam Date: 08/06/2019/8:56 Family Phys: Charge Code: [id number] Physician: [place] Order #: [id number] DLP Dose#: PROCEDURE: MRI BRAIN WITHOUT CONTRAST [...] Momin MD on 08/06/2019 at 9:51 Normal [facility] RENAL FUNCTION PANELon 08-06 Albumin [Mass/Vol] 3.3 g/dL Low 3.4 - 4.8 [facility] Comment on above: Performed By: #### 2 66701 #### [place] [id number] B/C RATIO 11 ratio Normal 0 - 30 [facility] Comment on above: Performed By: #### 2 57600 #### [address] [address] Calcium [Mass/Vol] 8.9 mg/dL Normal 8.6 - 10.2 [facility] Comment on above: Performed By: #### 2 20211 #### [address] [address] Chloride [Moles/Vol] 107 mmol/L Normal 98 - 107 [facility] Comment on above: Performed By: #### 2 48505 #### [address] [address] CO2 [Moles/Vol] 26.8 mmol/L Normal 21.0 - 31.0 [facility] Comment on above: Performed By: #### 2 93204 #### [address] [address] Creatinine [Mass/Vol] 2.2 mg/dL High 0.7 - 1.3 [facility] Comment on above: Performed By: #### 2 38245 #### [facility],[address] [place] [address] 73101 Glucose [Mass/Vol] 84 mg/dL Normal 74 - 106 [facility] Comment on above: Performed By: #### 2 68711 #### [facility],[address] [place] [address] 07086 Phosphate [Mass/Vol] 3.9 mg/dL Normal 2.7 - 4.9 [facility] Comment on above: Performed By: #### 2 08694 #### [facility],[address] [place] [address] 13794 Potassium [Moles/Vol] 4.1 mmol/L Normal 3.5 - 5.1 [facility] Comment on above: Performed By: #### 2 63880 #### [facility],[address] [place] [address] 70439 RENAL FUNCTION PANEL Normal [facility] Comment on above: Result Comment: JESSICA L FUNCTION PANEL Performed By: #### 2 09020 #### [facility],[address] [place] [address] 18736 Sodium [Moles/Vol] 141 mmol/L Normal 136 - 145 [facility] Comment on above: Performed By: #### 2 09603 #### [facility],[address] [place] [address] 58069 Urea nitrogen [Mass/Vol] 25 mg/dL High 6 - 20 [facility] Comment on above: Performed By: #### 2 06096 #### [facility],[address] [place] [address] 15365 URINALYSISon 08-06-2019 Bilirubin [Mass/Vol] Negative Normal NORMAL: NEGATIVE [facility] Comment on above: Performed By: #### 2 22883 #### [facility],[address] [place] [address] 56022 Blood Negative Normal NORMAL: NEGATIVE [facility] Comment on above: Performed By: #### 2 93041 #### [facility],[address] [place] [address] 47045 Clarity (U) clear Normal NORMAL: CLEAR [facility] Comment on above: Performed By: #### 2 29173 #### [facility],[address] [place], [place] [id number] Color (U) p.yel Normal NORMAL: YELLOW [facility] Comment on above: Performed By: #### 2 12786 #### [facility],[address] [place], [place] [phone] Glucose [Mass/Vol] NORM Normal NORMAL: NORMAL [facility] Comment on above: Performed By: #### 2 76442 #### [facility],[address] [place], [place] [id number] Ketone Negative Normal NORMAL: NEGATIVE [facility] Comment on above: Performed By: #### 2 37757 #### [facility],[address] [place], [place] [phone] Microscopic NOT Normal [facility] Comment on above: Performed By: #### 2 04677 #### [facility],[address] [place] [address] 33477 Nitrite Ql (U) Negative Normal NORMAL: NEGATIVE [facility] Comment on above: Performed By: #### 2 14648 #### [facility],[address] [place] [address] 32445 pH (Bld) 8 Normal NORMAL: 5.0-8.0 [facility] Comment on above: Performed By: #### 2 82159 #### [facility],[address] [place] [address] 95304 Protein (U) [Mass/Vol] Negative Normal JENN L: NEGATIVE [facility] Comment on above: Performed By: #### 2 12706 #### [facility],[address] [place] [address] Sp [place] 1.010 Normal NORMAL: 1.010-1.030 [facility] Comment on above: Performed By: #### 2 46343 #### [facility],[address] [place] [address] Specimen type Nom (Spec) Clean catch Normal [facility] Comment on above: Performed By: #### 2 55636 #### [facility],[address] [place] [address] Urobilinog NORM Normal NORMAL: NORMAL [facility] Comment on above: Performed By: #### 2 18843 #### [place] [address] WBC (Bld) [#/Vol] Negative Normal NORMAL: NEGATIVE [facility] Comment on above: Performed By: #### 2 15921 #### [place] [address] URINE CREATININE AND PROTEIN RATIOon 08-06-2019 CREATININE UR 35.5 mg/dl Normal [facility] Comment on above: Performed By: #### 2 62394 #### [place] [address] PC RATIO 0.11 mg/dL Normal 0.00 - 10.00 [facility] Comment on above: Performed By: #### 2 35728 #### [place] [phone] Protein (U) [Mass/Vol] mg/dL Normal 0.00 - 10.00 [facility] Comment on above: Performed By: #### 2 74324 #### [place] [id number] Ammoniaon 03-19-2019 Ammonia mass conc (P) 34 umol/L Normal 16-60 [facility] Comment on above: Performed By: #### L ITH #### [facility] [address] [place] [address] Basic Metabolic Panelon 05-0 Anion gap molar conc 13 mmol/L Normal 9-15 [facility] Comment on above: Result Comment: Effe ctive: 12/21/2018 New reference range for this analyte has been established. Performed By: #### L ITH #### [facility] [address] [place] [address] Calcium mass conc 8.8 mg/dL Normal 8.5-9.9 [facility] Comment on above: Result Comment: Effe ctive: 12/21/2018 New reference range for this analyte has been established. Performed By: #### L ITH #### [facility] [address] [place] [address] Chloride molar conc 106 mmol/L Normal 95-107 [facility] Comment on above: Result Comment: Effe ctive: 12/21/2018 New reference range for this analyte has been established. Performed By: #### L ITH #### [facility] [address] [place] [address] CO2 molar conc 22 mmol/L Normal 20-31 [facility] Comment on above: Result Comment: Effe ctive: 12/21/2018 New reference range for this analyte has been established. Performed By: #### L ITH #### [facility] [address] [place] [address] Creatinine mass conc 1.78 mg/dL Critically high 0.70-1.20 [facility] Comment on above: Performed By: #### L ITH #### [facility] [address] [place] [address] GFR/1.73 sq M predicted among blacks MDRD vol rate/area (S/P/Bld) 48.1 mL/min/{1.73_m2} Low >60 [facility] Comment on above: Result Comment: >60 mL/min/1.73m2 EGFR, calc. for ages 18 and older using the MDRD formula (not corrected for weight), is valid for stable renal function. Performed By: #### L ITH #### [facility] [address] [place] [address] GFR/1.73 sq M.predicted MDRD vol rate/area 39.8 mL/min/{1.73_m2} Low >60 [facility] Comment on above: Result Comment: >60 mL/min/1.73m2 EGFR, calc. for ages 18 and older using the MDRD formula (not corrected for weight), is valid for stable renal function. Performed By: #### L ITH #### [facility] [address] [place] [address] Glucose mass conc 84 mg/dL Normal 70-99 [facility] Comment on above: Result Comment: Effe ctive: 12/21/2018 New reference range for this analyte has been established. Performed By: #### L ITH #### [facility] [address] [place] [address] Potassium molar conc 4.4 mmol/L Normal 3.4-4.9 [facility] Comment on above: Result Comment: Effe ctive: 12/21/2018 New reference range for this analyte has been established. Performed By: #### L ITH #### [facility] [address] [place] [address] Sodium molar conc 141 mmol/L Normal 135-144 [facility] Comment on above: Result Comment: Effe ctive: 12/21/2018 New reference range for this analyte has been established. Performed By: #### L ITH #### [facility] [address] [place] [address] Urea nitrogen mass conc 25 mg/dL Critically high 6-20 [facility] Comment on above: Performed By: #### L ITH #### [facility] [address] [place] [address] Valproic Acid /Depakene Leve rahul 03-19-2019 Protein mass conc 62.5 ug/mL Normal 50.0-100.0 [facility] Comment on above: Performed By: #### L ITH #### [facility] [address] [place] [address] Basic Metabolic Panelon 05-0 Anion gap molar conc 14 mmol/L Normal 9-15 [facility] Comment on above: Result Comment: Effe ctive: 12/21/2018 New reference range for this analyte has been established. Performed By: #### L ITH #### [facility] [address] [place] [address] Calcium mass conc 9.1 mg/dL Normal 8.5-9.9 [facility] Comment on above: Result Comment: Effe ctive: 12/21/2018 New reference range for this analyte has been established. Performed By: #### L ITH #### [facility] [address] [place] [address] Chloride molar conc 107 mmol/L Normal 95-107 [facility] Comment on above: Result Comment: Effe ctive: 12/21/2018 New reference range for this analyte has been established. Performed By: #### L ITH #### [facility] [address] [place] [address] CO2 molar conc 22 mmol/L Normal 20-31 [facility] Comment on above: Result Comment: Effe ctive: 12/21/2018 New reference range for this analyte has been established. Performed By: #### L ITH #### [facility] [address] [place] [address] Creatinine mass conc 2.32 mg/dL Critically high 0.70-1.20 [facility] Comment on above: Performed By: #### L ITH #### [facility] [address] [place] [address] GFR/1.73 sq M predicted among blacks MDRD vol rate/area (S/P/Bld) 35.4 mL/min/{1.73_m2} Low >60 [facility] Comment on above: Result Comment: >60 mL/min/1.73m2 EGFR, calc. for ages 18 and older using the MDRD formula (not corrected for weight), is valid for stable renal function. Performed By: #### L ITH #### [facility] [address] [place] [address] GFR/1.73 sq M.predicted MDRD vol rate/area 29.3 mL/min/{1.73_m2} Low >60 [facility] Comment on above: Result Comment: >60 mL/min/1.73m2 EGFR, calc. for ages 18 and older using the MDRD formula (not corrected for weight), is valid for stable renal function. Performed By: #### L ITH #### [facility] [address] [place] [address] Glucose mass conc 97 mg/dL Normal 70-99 [facility] Comment on above: Result Comment: Effe ctive: 12/21/2018 New reference range for this analyte has been established. Performed By: #### L ITH #### [facility] [address] [place] [address] Potassium molar conc 4.5 mmol/L Normal 3.4-4.9 [facility] Comment on above: Result Comment: Effe ctive: 12/21/2018 New reference range for this analyte has been established. Performed By: #### L ITH #### [facility] [address] [place] [address] Sodium molar conc 143 mmol/L Normal 135-144 [facility] Comment on above: Result Comment: Effe ctive: 12/21/2018 New reference range for this analyte has been established. Performed By: #### L ITH #### [facility] [address] [place] [address] Urea nitrogen mass conc 29 mg/dL Critically high 6-20 [facility] Comment on above: Performed By: #### L ITH #### [facility] [address] [place] [address] Basic Metabolic Panelon 05-0 Anion gap molar conc 10 mmol/L Normal 9-15 [facility] Comment on above: Result Comment: Effe ctive: 12/21/2018 New reference range for this analyte has been established. Performed By: #### L ITH #### [facility] [address] [place] [address] Calcium mass conc 8.7 mg/dL Normal 8.5-9.9 [facility] Comment on above: Result Comment: Effe ctive: 12/21/2018 New reference range for this analyte has been established. Performed By: #### L ITH #### [facility] [address] [place] [address] Chloride molar conc 109 mmol/L Critically high 95-107 [facility] Comment on above: Result Comment: Effe ctive: 12/21/2018 New reference range for this analyte has been established. Performed By: #### L ITH #### [facility] [address] [place] [address] CO2 molar conc 24 mmol/L Normal 20-31 [facility] Comment on above: Result Comment: Effe ctive: 12/21/2018 New reference range for this analyte has been established. Performed By: #### L ITH #### [facility] [address] [place] [address] Creatinine mass conc 1.77 mg/dL Critically high 0.70-1.20 [facility] Comment on above: Performed By: #### L ITH #### [facility] [address] [place] [address] GFR/1.73 sq M predicted among blacks MDRD vol rate/area (S/P/Bld) 48.4 mL/min/{1.73_m2} Low >60 [facility] Comment on above: Result Comment: >60 mL/min/1.73m2 EGFR, calc. for ages 18 and older using the MDRD formula (not corrected for weight), is valid for stable renal function. Performed By: #### L ITH #### [facility] [address] [place] [address] GFR/1.73 sq M.predicted MDRD vol rate/area 40.0 mL/min/{1.73_m2} Low >60 [facility] Comment on above: Result Comment: >60 mL/min/1.73m2 EGFR, calc. for ages 18 and older using the MDRD formula (not corrected for weight), is valid for stable renal function. Performed By: #### L ITH #### [facility] [address] [place] [address] Glucose mass conc 95 mg/dL Normal 70-99 [facility] Comment on above: Result Comment: Effe ctive: 12/21/2018 New reference range for this analyte has been established. Performed By: #### L ITH #### [facility] [address] [place] [address] Potassium molar conc 4.8 mmol/L Normal 3.4-4.9 [facility] Comment on above: Result Comment: Effe ctive: 12/21/2018 New reference range for this analyte has been established. Performed By: #### L ITH #### [facility] [address] [place] [address] Sodium molar conc 143 mmol/L Normal 135-144 [facility] Comment on above: Result Comment: Effe ctive: 12/21/2018 New reference range for this analyte has been established. Performed By: #### L ITH #### [facility] [address] [place] [address] Urea nitrogen mass conc 25 mg/dL Critically high 6-20 [facility] Comment on above: Performed By: #### L ITH #### [facility] [address] [place] [address] Ammoniaon 03-12-2019 Ammonia mass conc (P) 20 umol/L Normal 16-60 [facility] Comment on above: Performed By: #### N H3 #### [facility] [address] [place] [address] Basic Metabolic Panelon 04- Anion gap molar conc 14 mmol/L Normal 9-15 [facility] Comment on above: Result Comment: Effe ctive: 12/21/2018 New reference range for this analyte has been established. Performed By: #### L ITH #### [facility] [address] [place] [address] Calcium mass conc 9.1 mg/dL Normal 8.5-9.9 [facility] Comment on above: Result Comment: Effe ctive: 12/21/2018 New reference range for this analyte has been established. Performed By: #### L ITH #### [facility] [address] [place] [address] Chloride molar conc 109 mmol/L Critically high 95-107 [facility] Comment on above: Result Comment: Effe ctive: 12/21/2018 New reference range for this analyte has been established. Performed By: #### L ITH #### [facility] [address] [place] [address] CO2 molar conc 24 mmol/L Normal 20-31 [facility] Comment on above: Result Comment: Effe ctive: 12/21/2018 New reference range for this analyte has been established. Performed By: #### L ITH #### [facility] [address] [place] [address] Creatinine mass conc 1.94 mg/dL Critically high 0.70-1.20 [facility] Comment on above: Performed By: #### L ITH #### [facility] [address] [place] [address] GFR/1.73 sq M predicted among blacks MDRD vol rate/area (S/P/Bld) 43.6 mL/min/{1.73_m2} Low >60 [facility] Comment on above: Result Comment: >60 mL/min/1.73m2 EGFR, calc. for ages 18 and older using the MDRD formula (not corrected for weight), is valid for stable renal function. Performed By: #### L ITH #### [facility] [address] [place] [address] GFR/1.73 sq M.predicted MDRD vol rate/area 36.0 mL/min/{1.73_m2} Low >60 [facility] Comment on above: Result Comment: >60 mL/min/1.73m2 EGFR, calc. for ages 18 and older using the MDRD formula (not corrected for weight), is valid for stable renal function. Performed By: #### L ITH #### [facility] [address] [place] [address] Glucose mass conc 90 mg/dL Normal 70-99 [facility] Comment on above: Result Comment: Effe ctive: 12/21/2018 New reference range for this analyte has been established. Performed By: #### L ITH #### [facility] [address] [place] [address] Potassium molar conc 4.5 mmol/L Normal 3.4-4.9 [facility] Comment on above: Result Comment: Effe ctive: 12/21/2018 New reference range for this analyte has been established. Performed By: #### L ITH #### [facility] [address] [place] [address] Sodium molar conc 147 mmol/L Critically high 135-144 [facility] Comment on above: Result Comment: Effe ctive: 12/21/2018 New reference range for this analyte has been established. Performed By: #### L ITH #### [facility] [address] [place] [address] Urea nitrogen mass conc 27 mg/dL Critically high - [facility] Comment on above: Performed By: #### L ITH #### [facility] [address] [place] [address] [place]an[place] Levelon 03-12-2019 [place] molar conc 0.8 mmol/L Normal 0.6-1.2 [facility] Comment on above: Performed By: #### L ITH #### [facility] [address] [place] [address] Valproic Acid /Depakene Leve rahul 03-12-2019 Protein mass conc 70.6 ug/mL Normal 50.0-100.0 [facility] Comment on above: Performed By: #### L ITH #### [facility] [address] [place] [address] Basic Metabolic Panelon - Anion gap molar conc 13 mmol/L Normal 9-15 [facility] Comment on above: Result Comment: Effe ctive: 12/21/2018 New reference range for this analyte has been established. Performed By: #### B MP #### [facility] [address] [place] [address] Calcium mass conc 8.9 mg/dL Normal 8.5-9.9 [facility] Comment on above: Result Comment: Effe ctive: 12/21/2018 New reference range for this analyte has been established. Performed By: #### B MP #### [facility] [address] [place] [address] Chloride molar conc 108 mmol/L Critically high 95-107 [facility] Comment on above: Result Comment: Effe ctive: 12/21/2018 New reference range for this analyte has been established. Performed By: #### B MP #### [facility] [address] [place] [address] CO2 molar conc 23 mmol/L Normal 20-31 [facility] Comment on above: Result Comment: Effe ctive: 12/21/2018 New reference range for this analyte has been established. Performed By: #### B MP #### [facility] [address] [place] [address] Creatinine mass conc 1.82 mg/dL Critically high 0.70-1.20 [facility] Comment on above: Performed By: #### B MP #### [facility] [address] [place] [address] GFR/1.73 sq M predicted among blacks MDRD vol rate/area (S/P/Bld) 46.9 mL/min/{1.73_m2} Low >60 [facility] Comment on above: Result Comment: >60 mL/min/1.73m2 EGFR, calc. for ages 18 and older using the MDRD formula (not corrected for weight), is valid for stable renal function. Performed By: #### B MP #### [facility] [address] [place] [address] GFR/1.73 sq M.predicted MDRD vol rate/area 38.8 mL/min/{1.73_m2} Low >60 [facility] Comment on above: Result Comment: >60 mL/min/1.73m2 EGFR, calc. for ages 18 and older using the MDRD formula (not corrected for weight), is valid for stable renal function. Performed By: #### B MP #### [facility] [address] [place] [address] Glucose mass conc 82 mg/dL Normal 70-99 [facility] Comment on above: Result Comment: Effe ctive: 12/21/2018 New reference range for this analyte has been established. Performed By: #### B MP #### [facility] [address] [place] [address] Potassium molar conc 4.2 mmol/L Normal 3.4-4.9 [facility] Comment on above: Result Comment: Effe ctive: 12/21/2018 New reference range for this analyte has been established. Performed By: #### B MP #### [facility] [address] [place] [address] Sodium molar conc 144 mmol/L Normal 135-144 [facility] Comment on above: Result Comment: Effe ctive: 12/21/2018 New reference range for this analyte has been established. Performed By: #### B MP #### [facility] [address] [place] [address] Urea nitrogen mass conc 28 mg/dL Critically high 6-20 [facility] Comment on above: Performed By: #### B MP #### [facility] [address] [place] [address] Lipid Panelon 03-09-2019 Cholesterol in HDL mass conc 30 mg/dL Low 40-59 [facility] Comment on above: Result [...] CHD Performed By: #### L IPID #### [facility] [address] [place] [address] Cholesterol in LDL mass conc 83 mg/dL Normal 0-129 [facility] Comment on above: Result Comment: ATP III LDL Classification is Optimal. Performed By: #### L IPID #### [facility] [address] [place] [address] Cholesterol mass conc 160 mg/dL Normal 0-199 [facility] Comment on above: Result Comment: ATP III Cholesterol classification is Desirable. Performed By: #### L IPID #### [facility] [address] [place] [address] Triglyceride mass conc 234 mg/dL Critically high 0-150 [facility] Comment on above: Result Comment: ATP III Triglycerides Classification is High. Effective: 12/21/2018 New reference range for this analyte has been established. Performed By: #### L IPID #### [facility] [address] [place] [address] Ammoniaon 03-04-2019 Ammonia mass conc (P) 35 umol/L Normal 16-60 [facility] Comment on above: Performed By: #### N H3 #### [facility] [address] [place] [address] [place] Levelon 03-04-2019 [place] molar conc 0.7 mmol/L Normal 0.6-1.2 [facility] Comment on above: Performed By: #### L ITH #### [facility] [address] [place] [address] TSH w/out Reflexon 9 Thyrotropin Qn 2.880 uIU/mL Normal 0.440-3.86 [facility] Comment on above: Result Comment: Effe ctive: 12/21/2018 New reference range for this analyte has been established. Performed By: #### T SH #### [facility] [address] [place] [address] VITAMIN Don 03-04-2019 VITAMIN D 33.1 ng/mL Normal 30.0-100.0 [facility] Comment on above: Result Comment: (30- 100 ng/mL) Optimum Level This assay accurately quantifies the sum of vitamin D3, 25-Hydroxy and vitamin D2, 25-Hyroxy. Performed By: #### V ITD #### [facility] [address] [place] [address] Valproic Acid /Depakene Leve rahul 03-04-2019 Protein mass conc 25.8 ug/mL Low 50.0-100.0 [facility] Comment on above: Performed By: #### V ALPR #### [facility] [address] [place] [address] Vitamin B12 and Folateon Cobalamin (Vitamin B12) mass conc 340 pg/mL Normal 232-1245 [facility] Comment on above: Performed By: #### B 12FO #### [facility] [address] [place] [address] Folate 10.2 ng/mL Normal 7.3-26.1 [facility] Comment on above: Result Comment: As o f 16, the methodology has changed. Results from this methodology should not be compared with results from previous methodology. Performed By: #### B 12FO #### [facility] [address] [place] [address] Creatinineon 06-06-2018 Creatinine 1.93 mg/dL High 0.58-0.96 [facility] Comment on above: Performed By: #### C RET1, TSH, LI ####[facility] [id number] [place], [place] [phone] eGFR (non-black) 27 . Normal [facility] Comment on above: Performed By: #### C RET1, TSH, LI ####[facility] [address] [place], [place] [phone] eGFR- Amer. 33 Normal [facility] Comment on above: Performed By: #### C RET1, TSH, LI ####[facility] [id number] [place], [place] [phone] Lithiumon 06-06-2018 [place] 0.8 mmol/L Normal 0.6-1.2 [facility] Comment on above: Performed By: #### C RET1, TSH, LI ####[facility] [id number] [place], [place] [phone] TSHon 06-06-2018 Thyroid stimulating hormone (TSH) 2.350 uU/mL Normal 0.400-5.500 [facility] Comment on above: Performed By: #### C RET1, TSH, LI ####[facility] [id number] [place], [place] [phone] Culture, urine Bacteria identified Cx Nom (U) Culture exhibits no growth. [facility] Work Phone: Bacteria identified Cx Nom (U) Positive [facility] Work Phone: Bacteria identified Cx Nom (U) Actinomyces turicensis [facility] Work Phone: Bacteria identified Cx Nom (U) Streptococcus mitis [facility] Work Phone: Vital Signs Date Time Vital Sign Value Performing Clinician Facility 02-26-2025 11:40-0400 Diastolic blood pressure 76 mm[Hg] [facility] Work Phone: [facility] 02-26-2025 11:40-0400 Heart rate 75 /min [facility] Work Phone: [facility] 02-26-2025 11:40-0400 Respiratory rate 18 /min [facility] Work Phone: [facility] 02-26-2025 11:40-0400 SaO2% (BldA) [Mass fraction] 96 % [facility] Work Phone: [facility] 02-26-2025 11:40-0400 Systolic blood pressure 122 mm[Hg] [facility] Work Phone: [facility] 02-26-2025 09:00-0400 Body temperature 98.6 [degF] [facility] Work Phone: [facility] 02-12-2025 14:04-0400 Diastolic blood pressure 55 mm[Hg] [facility] Work Phone: [facility] 02-12-2025 14:04-0400 Heart rate 78 /min [facility] Work Phone: [facility] 02-12-2025 14:04-0400 Respiratory rate 18 /min [facility] Work Phone: [facility] 02-12-2025 14:04-0400 SaO2% (BldA) [Mass fraction] 95 % [facility] Work Phone: [facility] 02-12-2025 14:04-0400 Systolic blood pressure 128 mm[Hg] [facility] Work Phone: [facility] 02-12-2025 09:00-0400 Body temperature 98.6 [degF] [facility] Work Phone: [facility] 09-14-2024 08:49-0400 Body height 176.3 cm Dorota Smith MD Work Phone: [facility] 09-14-2024 08:49-0400 Body mass index (BMI) [Ratio] 39.27 kg/m2 Dorota Smith MD Work Phone: [facility] 09-14-2024 08:49-0400 Body temperature 97.3 [degF] Dorota Smith MD Work Phone: [facility] 09-14-2024 08:49-0400 Body weight 122.05 kg Dorota Smith MD Work Phone: [facility] 09-14-2024 08:49-0400 Diastolic blood pressure 65 mm[Hg] Dorota Smith MD Work Phone: [facility] 09-14-2024 08:49-0400 Heart rate 106 /min Dorota Smith MD Work Phone: [facility] 09-14-2024 08:49-0400 Respiratory rate 14 /min Dorota Smith MD Work Phone: [facility] 09-14-2024 08:49-0400 Systolic blood pressure 104 mm[Hg] Dorota Smith MD Work Phone: [facility] 08-09-2024 10:45-0400 Diastolic blood pressure 68 mm[Hg] [facility] Work Phone: [facility] 08-09-2024 10:45-0400 Heart rate 82 /min [facility] Work Phone: [facility] 08-09-2024 10:45-0400 Respiratory rate 18 /min [facility] Work Phone: [facility] 08-09-2024 10:45-0400 SaO2% (BldA) [Mass fraction] 96 % [facility] Work Phone: [facility] 08-09-2024 10:45-0400 Systolic blood pressure 125 mm[Hg] [facility] Work Phone: [facility] 08-09-2024 07:00-0400 Body temperature 98.4 [degF] [facility] Work Phone: [facility] 07-17-2024 11:09-0400 Body height 182.9 cm Anthony Olivares MD Work Phone: [facility] 07-17-2024 11:09-0400 Body mass index (BMI) [Ratio] 36.48 kg/m2 Anthony Olivares MD Work Phone: [facility] 07-17-2024 11:09-0400 Body weight 122 kg Anthony Olivares MD Work Phone: [facility] 07-17-2024 11:09-0400 Diastolic blood pressure 73 mm[Hg] Anthony Olivares MD Work Phone: [facility] 07-17-2024 11:09-0400 Heart rate 90 /min Anthony Olivares MD Work Phone: [facility] 07-17-2024 11:09-0400 Systolic blood pressure 106 mm[Hg] Anthony Olivares MD Work Phone: [facility] 01-26-2024 12:00-0400 Diastolic blood pressure 62 mm[Hg] [facility] Work Phone: [facility] 01-26-2024 12:00-0400 Heart rate 97 /min [facility] Work Phone: [facility] 01-26-2024 12:00-0400 Respiratory rate 18 /min [facility] Work Phone: [facility] 01-26-2024 12:00-0400 SaO2% (BldA) [Mass fraction] 96 % [facility] Work Phone: [facility] 01-26-2024 12:00-0400 Systolic blood pressure 110 mm[Hg] [facility] Work Phone: [facility] 01-26-2024 07:05-0400 Body temperature 98.6 [degF] [facility] Work Phone: [facility] 12-20-2023 09:51-0500 Body height 177.8 cm Anthony Olivares MD Work Phone: [facility] 12-20-2023 09:51-0500 Body temperature 97.7 [degF] Anthony Olivares MD Work Phone: [facility] 12-20-2023 09:51-0500 Body weight 126.4 kg Anthony Olivares MD Work Phone: [facility] 12-20-2023 09:51-0500 Diastolic blood pressure 68 mm[Hg] Anthony Olivares MD Work Phone: [facility] 12-20-2023 09:51-0500 Heart rate 116 /min Anthony Olivares MD Work Phone: [facility] 12-20-2023 09:51-0500 Systolic blood pressure 97 mm[Hg] Anthony Olivares MD Work Phone: [facility] 02-25-2023 11:04-0400 Body height 171.5 cm Luz Daniel MD Work Phone: [facility] 02-25-2023 11:04-0400 Body temperature 97.9 [degF] Luz Daniel MD Work Phone: [facility] 02-25-2023 11:04-0400 Body weight 146.69 kg Luz Daniel MD Work Phone: [facility] 02-25-2023 11:04-0400 Diastolic blood pressure 86 mm[Hg] Luz Daniel MD Work Phone: [facility] 02-25-2023 11:04-0400 Heart rate 93 /min Luz Daniel MD Work Phone: [facility] 02-25-2023 11:04-0400 Systolic blood pressure 125 mm[Hg] Luz Daniel MD Work Phone: [facility] 11-03-2022 13:05-0500 Body temperature 97.2 [degF] [place]i 2 Work Phone: [facility] 11-03-2022 13:05-0500 Diastolic blood pressure 78 mm[Hg] Ashleigh 2 Work Phone: [facility] 11-03-2022 13:05-0500 Heart rate 89 /min Guki 2 Work Phone: [facility] 11-03-2022 13:05-0500 Respiratory rate 18 /min [place] 2 Work Phone: [facility] 11-03-2022 13:05-0500 SaO2% (BldA) [Mass fraction] 95 % [place]i 2 Work Phone: [facility] 11-03-2022 13:05-0500 Systolic blood pressure 124 mm[Hg] [place]i 2 Work Phone: [facility] 11-03-2022 07:52-0500 Body weight 144.74 kg [place]i 2 Work Phone: [facility] 08-27-2022 10:46-0400 Body height 171.5 cm Luz Daniel MD Work Phone: [facility] 08-27-2022 10:46-0400 Body temperature 98.29 [degF] Luz Daniel MD Work Phone: [facility] 08-27-2022 10:46-0400 Body weight 146.06 kg Luz Daniel MD Work Phone: [facility] 08-27-2022 10:46-0400 Diastolic blood pressure 95 mm[Hg] Luz Daniel MD Work Phone: [facility] 08-27-2022 10:46-0400 Heart rate 109 /min Luz Daniel MD Work Phone: [facility] 08-27-2022 10:46-0400 Systolic blood pressure 132 mm[Hg] Luz Daniel MD Work Phone: [facility] 07-27-2022 15:53-0400 Body height 176.5 cm Anthony Olivares MD Work Phone: [facility] 07-27-2022 15:53-0400 Body weight 142.88 kg Anthony Olivares MD Work Phone: [facility] 07-27-2022 15:53-0400 Diastolic blood pressure 85 mm[Hg] Anthony Olivares MD Work Phone: [facility] 07-27-2022 15:53-0400 Heart rate 94 /min Anthony Olivares MD Work Phone: [facility] 07-27-2022 15:53-0400 Systolic blood pressure 128 mm[Hg] Anthony Olivares MD Work Phone: [facility] 05-05-2022 13:15-0400 Body temperature 97.2 [degF] Kidney 1 [facility] 05-05-2022 13:15-0400 Diastolic blood pressure 91 mm[Hg] Kidney 1 [facility] 05-05-2022 13:15-0400 Heart rate 116 /min Kidney 1 [facility] 05-05-2022 13:15-0400 Systolic blood pressure 157 mm[Hg] Kidney 1 [facility] 05-05-2022 07:40-0400 SaO2% (BldA) [Mass fraction] 95 % Kidney 1 [facility] 05-05-2022 07:36-0400 Body weight 140.57 kg Kidney 1 [facility] 11-04-2020 15:52-0500 Body Temperature 97.2 [degF] [facility] [place] 11-04-2020 15:52-0500 BP Diastolic 74 mm[Hg] [facility] , [place] 11-04-2020 15:52-0500 BP Systolic 113 mm[Hg] [facility] , [place] 11-04-2020 15:52-0500 Pulse (Heart Rate) 92 /min [facility], [place] 11-04-2020 15:52-0500 Pulse Oximetry 96 % [facility] , [place] 11-04-2020 15:52-0500 Respiratory Rate 17 /min [facility] [place], [place] 11-04-2020 05:31-0500 Body weight 114.31 kg [facility] [place], [place] Encounters Encounter Date Encounter Type Care Provider Facility Start: 08-28-2025 ambulatory ALFREDO PHIPPS Facility:[facility] Start: 08-27-2025 ambulatory Adam CHANDLER Fac ility:[facility] Start: 08-15-2025 End: 08-15-2025 ambulatory ANTHONY OLIVARES Facility:[facility] Start: 08-14-2025 ambulatory Alfredo CHANDLER Faci lity:[facility] Start: 08-14-2025 Registered Referred Alfredo Phipps - [place] [employer] Start: 08-09-2025 Registered Referred Alfredo Phipps - [place] [employer] Start: 08-09-2025 End: 08-09-2025 ambulatory Alfredo CHANDLER Facility:[facility] Start: 08-02-2025 Registered Referred Adam Ferraro -[place] [employer] Start: 08-02-2025 End: 08-02-2025 ambulatory Adam CHANDLER Facility:[facility] Start: 07-29-2025 Registered Referred Alfredo Phipps - [place] [employer] Start: 07-29-2025 End: 07-29-2025 ambulatory Alfredo CHANDLER Facility:[facility] Start: 07-02-2025 Registered Referred Lasha alicia MD -[place] [employer] Start: 07-02-2025 End: 07-02-2025 ambulatory Lasha CHANDLER Facility:[facility] Start: 07-01-2025 Registered Referred Adam Ferraro -[place] [employer] Start: 07-01-2025 End: 07-01-2025 ambulatory Adam CHANDLER Facility:[facility] Start: 06-27-2025 ambulatory Adam Wandamele CHANDLER Fac ility:[facility] Start: 06-27-2025 Registered Referred Adam Ferraro -[place] [employer] Start: 06-20-2025 Registered Referred Alfredo Phipps - [place] [employer] Start: 06-20-2025 End: 06-20-2025 ambulatory Alfredo CHANDLER Facility:[facility] Start: 06-19-2025 Registered Referred Alfredo Phipps - [place] [employer] Start: 06-19-2025 End: 06-19-2025 ambulatory Elgin Bal Facility:[facility] Start: 06-06-2025 End: 06-06-2025 ambulatory Julieta Luo RN Kidney Medicine [facility] Start: 06-05-2025 Registered Referred Adam Ferraro -[place] [employer] Start: 06-05-2025 End: 06-05-2025 ambulatory Adam CHANDLER Facility:[facility] Start: 05-28-2025 End: 05-28-[address] Elgin Bal MD Work Phone: -[place] [employer] Start: 05-28-2025 End: 05-28-2025 Departed Referred Adam Ferraro -[place] [employer] Start: 05-28-2025 Registered Referred Adam Ferraro -[place] [employer] Start: 05-28-2025 End: 05-28-2025 ambulatory Adam CHANDLER Facility:[facility] Start: 05-26-2025 Registered Referred Adam Ferraro -[place] [employer] Start: 05-26-2025 End: 05-26-2025 ambulatory Adam CHANDLER Facility:[facility] Start: 05-24-2025 ambulatory Adam CHANDLER Fac ility:[facility] Start: 05-24-2025 Registered Referred Adam Ferraro -[place] [employer] Start: 05-23-2025 End: 05-23-2025 Telemedicine consultation with patient Anthony Olivares MD Work Phone: [facility] [place] Start: 05-23-2025 End: 05-27-2025 ambulatory Anthony Olivares MD Work Phone: [facility] [place] Comment on above: 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 Elgin Bal MD Work Phone: -[place] [employer] Start: 04-26-2025 End: 04-26-2025 Departed Referred Alfredo Phipps -[place] [employer] Start: 04-26-2025 Registered Referred Alfredo Phipps - [place] [employer] Start: 04-26-2025 End: 04-26-2025 ambulatory Elgin Bal Facility:[facility] Start: 04-24-2025 ambulatory Adam CHANDLER Fac ility:[facility] Start: 04-24-2025 Registered Referred Adam Ferraro -[place] [employer] Start: 04-01-2025 End: 04-01-[address] Elgin Bal MD Work Phone: -[place] [employer] Start: 04-01-2025 End: 04-01-2025 Departed Referred Adam Ferraro -[place] [employer] Start: 04-01-2025 End: 04-01-2025 ambulatory Adam CHANDLER Facility:[facility] Start: 03-27-2025 ambulatory Alfredo CHANDLER Faci lity:[facility] Start: 03-27-2025 Registered Referred Alfredo Phipps - [place] [employer] Start: 03-04-2025 End: 03-04-[address] Elgin Bal MD Work Phone: [facility] Work Phone: Start: 03-04-2025 End: 03-04-2025 Departed Referred Adam Ferraro -[place] [employer] Start: 03-04-2025 Registered Referred Adam Ferraro -[place] [employer] Start: 03-04-2025 End: 03-04-2025 ambulatory Adam Wandamele RAMESH Facility:[facility] Start: 02-27-2025 End: 02-27-[address] Elgin Bal MD Work Phone: [facility] Work Phone: Start: 02-27-2025 End: 02-27-2025 Departed Referred Alfredo Phipps -[place] [employer] Start: 02-27-2025 Registered Referred Alfredo Phipps - [place] [employer] Start: 02-26-2025 End: 02-27-2025 ambulatory ALFREDO PHIPPS Facility:[facility] Start: 02-26-2025 End: 02-26-2025 Subsequent hospital visit by physician Chair [facility] Work Phone: [facility] Start: 02-25-2025 End: 02-25-[address] Elgin Bal MD Work Phone: [facility] Work Phone: Start: 02-25-2025 End: 02-25-2025 Departed Referred Adam Ferraro -[place] [employer] Start: 02-25-2025 Registered Referred Adam Ferraro -[place] [employer] Start: 02-25-2025 End: 02-25-2025 ambulatory Adam Ferraro RAMESH Facility:[facility] Start: 02-12-2025 ambulatory ANTHONY Rivera ELISE Facility: [facility] Start: 02-12-2025 End: 02-12-2025 Subsequent hospital visit by physician Chair [facility] Work Phone: [facility] Start: 02-11-2025 End: 02-11-[address] Elgin Bal MD Work Phone: [facility] Work Phone: Start: 02-11-2025 End: 02-11-2025 Departed Referred Alfredo Wayros -[place] [employer] Start: 02-11-2025 Registered Referred Alfredo Shultzsaros - [place] [employer] Start: 02-11-2025 End: 02-11-2025 ambulatory Alfredo Wayshawna CHANDLER Facility:[facility] Start: 02-06-2025 End: 02-06-[address] Elgin Bal MD Work Phone: [facility] Work Phone: Start: 02-06-2025 End: 02-06-2025 Departed Referred Alfredo Wayros -[place] [employer] Start: 02-06-2025 Registered Referred Alfredo Wayros - [place] [employer] Start: 02-06-2025 End: 02-06-2025 ambulatory [facility] Facility:[facility] Start: 01-30-2025 End: 01-30-2025 Departed Referred Adam Ferraro -[place] [employer] Start: 01-30-2025 End: 01-30-2025 Orders Only Anthony Olivares MD Work Phone: Kidney Medicine [facility] Start: 01-30-2025 Registered Referred Adam Ferraro -[place] [employer] Start: 01-30-2025 End: 01-30-2025 ambulatory Adam CHANDLER Facility:[facility] Start: 01-25-2025 End: 01-25-[address] Elgin Bal MD Work Phone: [facility] Work Phone: Start: 01-25-2025 End: 01-25-2025 Departed Referred Adam Ferraro -[place] [employer] Start: 01-25-2025 End: 01-25-2025 ambulatory [facility] Facility:[facility] Start: 01-03-2025 End: 01-03-[address] Elgin Bal MD Work Phone: [facility] Work Phone: Start: 01-03-2025 End: 01-03-2025 Departed Referred Adam Ferraro -[place] [employer] Start: 01-03-2025 Registered Referred Adam Ferraro -[place] [employer] Start: 01-02-2025 End: 01-03-[address] Elgin Bal MD Work Phone: [facility] Work Phone: Start: 01-02-2025 End: 01-02-2025 Departed Referred Adam Ferraro -[place] [employer] Start: 01-02-2025 Registered Referred Adam Jasmine -[place] [employer] Start: 01-02-2025 End: 01-02-2025 ambulatory [facility] Facility:[facility] Start: 12-28-2024 End: 12-28-[address] Elgin Bal MD Work Phone: [facility] Work Phone: Start: 12-28-2024 End: 12-28-2024 Departed Referred Adam Ferraro -[place] [employer] Start: 12-28-2024 End: 12-28-2024 ambulatory [facility] Facility:[facility] Start: 11-27-2024 End: 11-27-2024 Departed Referred Adam Ferraro -[place] [employer] Start: 11-27-2024 End: 11-27-2024 ambulatory Adam CHANDLER Facility:[facility] Start: 11-20-2024 End: 11-23-2024 ambulatory Anthony Olivares MD Work Phone: [facility] Start: 11-15-2024 End: 11-15-2024 Departed Referred Adam Jasmine -[place] [employer] Start: 11-15-2024 End: 11-15-2024 ambulatory Adam Ferraro OLS Facility:[facility] Start: 09-27-2024 End: 09-27-2024 Departed Referred Adam Jasmine -[place] [employer] Start: 09-27-2024 End: 09-27-2024 ambulatory Adam Ferraro OLS Facility:[facility] Start: 09-14-2024 End: 09-14-2024 Patient encounter procedure Dorota Smith MD Work Phone: [facility] Comment on above: 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); Rash and nonspecific skin eruption; 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) Start: 09-14-2024 End: 09-14-2024 ambulatory ALFREDO IGNACIOLeonie GEMASHAWNA Facility:[facility] Start: 08-09-2024 End: 08-09-2024 Subsequent hospital visit by physician Chair [facility] Work Phone: [facility]fusion [facility] Comment on above: Rituximab Start: 07-17-2024 End: 07-20-2024 ambulatory Anthony Olivares MD Work Phone: Kidney [facility] Start: 07-17-2024 End: 07-17-2024 Patient encounter procedure Anthony Olivares MD Work Phone: Kidney [facility] Comment on above: 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); Stage 3b chronic kidney disease (HCC); Benign hypertension with chronic kidney disease Start: 05-21-2024 Telephone encounter Dorota hameed MD Work Phone: [facility] Comment on above: [...] kidney disease Start: 02-03-2024 End: 02-03-2024 ambulatory [facility] Work Phone: Start: 02-03-2024 End: 02-03-2024 Departed Referred [facility] [employer] Start: 01-26-2024 End: 01-26-2024 Subsequent hospital visit by physician Chair [facility] Work Phone: [facility] Comment on above: Rituximab Start: 01-06-2024 End: 01-06-2024 ambulatory [facility] Work Phone: Start: 01-06-2024 End: 01-06-2024 Departed Referred [facility] [employer] Start: 12-29-2023 Orders Only Babak Drummond RN [facility] Start: 12-27-2023 Orders Only Anthony Olivares MD Work Phone: Kidney Medicine [facility] Start: 12-23-2023 Telephone encounter Nuria noyola RN Kidney Medicine Comment on above: Appointment Start: 12-20-2023 ambulatory Anthony Olivares MD Work Phone: Kidney [facility] Start: 12-20-2023 End: 12-20-2023 Patient encounter procedure Anthony Olivares MD Work Phone: Kidney [facility] Comment on above: 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); Stage 3b chronic kidney disease (HCC); Benign hypertension with chronic kidney disease Start: 12-09-2023 End: 12-09-2023 ambulatory [facility] Work Phone: Start: 12-09-2023 End: 12-09-2023 Departed Referred [facility] [employer] Start: 11-16-2023 End: 11-16-2023 Departed Referred [facility] [employer] Start: 11-16-2023 Registered Referred [facility] [employer] Start: 11-11-2023 End: 11-11-2023 ambulatory [facility] Work Phone: Start: 11-11-2023 End: 11-11-2023 Departed Referred [facility] [employer] Start: 11-11-2023 [facility]istered [facility] [employer] Start: 10-27-2023 End: 10-27-2023 ambulatory [facility] Work Phone: Start: 10-27-2023 End: 10-27-2023 Departed Referred [facility] [employer] Start: 10-14-2023 End: 10-14-2023 ambulatory [facility] Work Phone: Start: 10-14-2023 End: 10-14-2023 [facility] [employer] Start: 09-27-2023 End: 09-27-2023 ambulatory [facility] Work Phone: Start: 09-27-2023 End: 09-27-2023 [facility] [employer] Start: 09-27-2023 [facility] [employer] Start: 09-16-2023 End: 09-16-2023 ambulatory [facility] Work Phone: Start: 09-16-2023 End: 09-16-2023 [facility] [employer] Start: 08-29-2023 Telephone encounter Dorota hameed MD Work Phone: [facility] Comment on above: Patient Update Start: 08-26-2023 Telephone encounter Luz Daniel MD Work Phone: [facility] Comment on above: NO SHOW Start: 08-19-2023 End: 08-19-2023 ambulatory [facility] Work Phone: Start: 08-19-2023 End: 08-19-2023 [facility] [employer] Start: 07-28-2023 End: 07-28-2023 [facility] [employer] Start: 07-28-2023 [facility] [employer] Start: 07-24-2023 [facility] [employer] Start: 07-22-2023 End: 07-22-2023 ambulatory [facility] Work Phone: Start: 07-22-2023 End: 07-22-2023 [facility] [employer] Start: 06-24-2023 End: 06-24-2023 ambulatory [facility] Work Phone: Start: 06-24-2023 End: 06-24-2023 [facility] [employer] Start: 06-24-2023 [facility] [employer] Start: 05-30-2023 End: 05-30-2023 ambulatory [facility] Work Phone: Start: 05-30-2023 End: 05-30-2023 [facility] [employer] Start: 05-30-2023 [facility] [employer] Start: 05-27-2023 End: 05-27-2023 ambulatory [facility] Work Phone: Start: 05-27-2023 End: 05-27-2023 [facility] [employer] [facility] Start: 05-27-2023 [facility] [employer] Start: 05-19-2023 End: 05-19-2023 ambulatory [facility] Work Phone: Start: 05-19-2023 End: 05-19-2023 [facility] [employer] Start: 05-19-2023 [facility] [employer] Start: 04-29-2023 End: 04-29-2023 ambulatory [facility] Work Phone: Start: 04-29-2023 End: 04-29-2023 [facility] [employer] [facility] Start: 04-29-2023 Registered [facility] [employer] Start: 04-27-2023 End: 04-27-2023 ambulatory [facility] Work Phone: Start: 04-27-2023 End: 04-27-2023 Departed Referred 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) (Primary Dx); 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) Start: 02-25-2023 End: 02-25-2023 ambulatory [facility] Work Phone: Start: 02-25-2023 End: 02-25-2023 [facility] [employer] Start: 02-04-2023 End: 02-04-2023 ambulatory [facility] Work Phone: Start: 02-04-2023 End: 02-04-2023 [facility] [employer] Start: 02-04-2023 Registered [facility] [employer] Start: 01-25-2023 End: 01-25-2023 ambulatory [facility] Work Phone: Start: 01-25-2023 End: 01-25-2023 [facility] [employer] Start: 01-25-2023 [facility] [employer] Start: 01-19-2023 End: 01-19-2023 [facility] [employer] Start: 01-19-2023 Registered [facility] [employer] Start: 01-07-2023 End: 01-07-2023 ambulatory [facility] Work Phone: Start: 01-07-2023 End: 01-07-2023 [facility] [employer] Start: 01-07-2023 [facility] [employer] Start: 12-28-2022 End: 12-28-2022 ambulatory [facility] Work Phone: Start: 12-28-2022 End: 12-28-2022 [facility] [employer] Start: 12-28-2022 Reg[facility] [employer] Start: 12-15-2022 End: 12-15-2022 [facility] [employer] Start: 12-15-2022 Registered [facility] [employer] Start: 12-10-2022 End: 12-10-2022 ambulatory [facility] Work Phone: Start: 12-10-2022 End: 12-10-2022 [facility] [employer] Start: 11-17-2022 End: 11-17-2022 ambulatory [facility] Work Phone: Start: 11-17-2022 End: 11-17-2022 [facility] [employer] Start: 11-17-2022 [facility] [employer] Start: 11-12-2022 End: 11-12-2022 [facility] [employer] [facility] Start: 11-12-2022 [facility] [employer] Start: 11-03-2022 End: 11-03-2022 Patient encounter procedure [facility] 1 [facility] Medicine Comment on above: 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 Start: 10-15-2022 End: 10-15-2022 Departed Referred [facility] Start: 10-15-2022 Registered Referred [facility] Start: 09-27-2022 End: 09-27-2022 ambulatory [facility] Work Phone: Start: 09-27-2022 End: 09-27-2022 Departed Referred [facility] Start: 09-27-2022 Registered Referred [facility] Start: 09-17-2022 End: 09-17-2022 ambulatory [facility] Work Phone: Start: 09-17-2022 End: 09-17-2022 Departed Referred [facility] Start: 09-17-2022 Registered Referred [facility] Start: 08-27-2022 End: 08-27-2022 Patient encounter procedure Luz Daniel MD Work Phone: [facility] Comment on above: Rheumatoid arthritis involving both hands 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 rheumatoid factor (HCC) (Primary Dx) Start: 08-27-2022 End: 08-27-2022 Departed Referred [facility] Start: 08-27-2022 Registered Referred [facility] Start: 08-23-2022 End: 08-23-2022 ambulatory [facility] Work Phone: Start: 08-23-2022 End: 08-23-2022 Departed Referred [facility] Start: 08-23-2022 [facility] Start: 08-12-2022 End: 08-12-2022 ambulatory [facility] Work Phone: Start: 08-12-2022 End: 08-12-2022 Departed Referred [facility] Start: 07-28-2022 End: 07-28-2022 ambulatory [facility] Work Phone: Start: 07-28-2022 End: 07-28-2022 Departed Referred [facility] Start: 07-28-2022 Registered Referred 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); Stage 3a chronic kidney disease (HCC) Start: 07-27-2022 ambulatory Anthony Olivares MD Work Phone: [facility] Start: 07-15-2022 End: 07-15-2022 ambulatory [facility] Work Phone: Start: 07-15-2022 End: 07-15-2022 Departed Referred [facility] Start: 07-15-2022 [facility] Start: 06-28-2022 End: 06-28-2022 ambulatory [facility] Work Phone: Start: 06-28-2022 End: 06-28-2022 Departed Referred [facility] Start: 06-28-2022 [facility] Start: 06-17-2022 End: 06-17-2022 ambulatory [facility] Work Phone: Start: 06-17-2022 End: 06-17-2022 Departed Referred [facility] [employer] Start: 05-27-2022 End: 05-27-2022 Departed Referred [facility] [employer] Start: 05-20-2022 End: 05-20-2022 Departed Referred [facility] [employer] Start: 05-05-2022 Patient encounter procedure Anthony Olivares MD Work Phone: [facility] [place] Comment on above: Granulomatosis with polyangiitis with [...] (HCC) Start: 04-27-2022 End: 04-27-2022 Departed Referred [facility] [employer] Start: 04-27-2022 Registered Referred [facility] [employer] Start: 04-22-2022 End: 04-22-2022 Departed Referred [facility] [employer] Start: 04-22-2022 Registered Referred [facility] [employer] Start: 04-21-2022 End: 04-21-2022 Departed Referred [facility] [employer] Start: 04-21-2022 Registered Referred [facility] [employer] Start: 04-06-2022 End: 04-06-2022 Departed Referred [facility] [employer] Start: 04-06-2022 Registered Referred [facility] [employer] Start: 04-05-2022 End: 04-05-2022 [facility] [employer] Start: 04-05-2022 [facility] [employer] [facility] Start: 04-02-2022 End: 04-02-2022 [facility] [employer] [facility] Start: 04-02-2022 [facility] [employer] Start: 03-30-2022 Orders Only Anthony Olivares MD Work Phone: Kidney Medicine [facility] Comment on above: Granulomatosis with polyangiitis, unspecified whether renal involvement (HCC) (Primary Dx) Start: 03-25-2022 End: 03-25-2022 [facility] [facility] Start: 03-25-2022 [facility] [employer] Start: 03-19-2022 End: 03-19-2022 [facility] [employer] Start: 03-19-2022 [facility] [employer] Start: 02-25-2022 End: 02-25-2022 [facility] [employer] [facility] Start: 02-25-2022 [facility] [employer] Start: 02-18-2022 End: 02-18-2022 [facility] [employer] Start: 01-28-2022 End: 01-28-2022 [facility] [employer] [facility] Start: 01-28-2022 [facility] [employer] Start: 01-25-2022 End: 01-25-2022 [facility] [employer] [facility] Start: 01-25-2022 [facility] [employer] [facility] Start: 01-04-2022 End: 01-04-2022 [facility] [employer] [facility] Start: 01-04-2022 Registered [facility] Start: 12-07-2021 End: 12-07-2021 Departed Referred [facility] [employer] Start: 12-03-2021 Registered Referred [facility] [employer] Start: 11-09-2021 Registered [facility] [employer] Start: 11-05-2021 Registered [facility] [employer] Start: 10-28-2020 End: 11-04-2020 Evaluation and management of inpatient [place] Work Phone: [facility] [employer] Comment on above: Pneumonia due to COV ID-19 virus (Primary Dx); Hypoxia; Hypokalemia; Stage 3 chronic kidney disease, unspecified whether stage 3a or 3b CKD Start: 11-14-2019 Encounter for genera l adult medical examination without abnormal findings [facility] Start: 11-14-2019 End: 08-05-2020 Patient encounter procedure HODA [facility] Start: 08-06-2019 End: 08-06-2019 Patient encounter procedure HODA BROWNING [facility] Start: 10-21-2009 End: 01-29-2013 Patient encounter status Ronny Polanco MD Work Phone: [facility] Encounter for genera l adult medical examination without abnormal findings [facility] Procedures Date Procedure Procedure Detail Performing Clinician Start: 08-14-[address] Elgin Bal MD Work Phone: Start: 08-14-2025 Serum inorganic phos phate measurement Dr. Elgin Bal MD Work Phone: Start: 08-02-[address] Elgin Bal MD Work Phone: Start: 07-29-2025 Serum inorganic phos phate measurement Dr. Elgin Bal MD Work Phone: Start: 07-29-2025 Vitamin D, 25-hydrox y measurement Dr. Elgin Bal MD Work Phone: Comment on above: Vitamin D StatusDefi ciency: <20 ng/mL (50nmol/L)Insufficiency: 20-30 ng/mL (50-75 nmol/L)Sufficiency: 30-100 ng/mL (75-250 nmol/L)Toxicity: >100 ng/mL (>250 nmol/L) Start: 07-02-[address] Elgin Bal MD Work Phone: Start: 06-19-[address] Elgin Bal MD Work Phone: Start: 06-19-2025 Serum inorganic phos phate measurement Dr. Elgin Bal MD Work Phone: Start: 05-26-2025 Urnls dip stick/tabl et reagent auto microscopy Dr. Elgin Bal MD Work Phone: Start: 05-26-[address] Keyur Bal MD Work Phone: Start: 05-02-[address] Elgin Bal MD Work Phone: Start: 04-24-[address] Elgin Bal MD Work Phone: Start: 04-24-2025 Serum inorganic phos phate measurement Dr. Elgin Bal MD Work Phone: Start: 04-01-[address] Elgin Bal MD Work Phone: Start: 02-27-[address] Elgin Bal MD Work Phone: Start: 01-30-[address] Elgin Bal MD Work Phone: Start: 01-03-[address] Elgin Bal MD Work Phone: Start: 01-03-2025 Urine microalbumin/creatinine ratio measurement Dr. Elgin Bal MD Work Phone: Comment on above: Test not performed Start: 01-02-2025 Assay of phosphorus inorganic Dr. Elgin Bal MD Work Phone: Start: 01-02-[address] Elgin Bal MD Work Phone: [...] Comment: URIN ALYSIS Performed By: #### [id number] #### [place] [address] Start: 04-08-2020 Urinalysis HODA WYATT Comment on above: Result Comment: URIN ALYSIS Performed By: #### 2 [id number] #### [facility],[address] [place] [address] Start: 02-04-2020 Urinalysis HODA WYATT Comment on above: Result Comment: URIN ALYSIS Performed By: #### 2 [id number] #### [place] [address] Start: 01-07-2020 Urinalysis HODA WYATT Comment on above: Result Comment: URIN ALYSIS Performed By: #### 2 [id number] #### [place] [id number] Start: 12-10-2019 Urinalysis HODA EASLEY YOSELIN Comment on above: Result Comment: URIN ALYSIS Performed By: #### 2 [id number] #### [place] [address] Start: 11-05-2019 Urinalysis HODA GOODRICHELIJAH Comment on above: Result Comment: URIN ALYSIS Performed By: #### 2 [id number] #### [place] [address] Start: 10-08-2019 Urinalysis HODA EASLEY YOSELIN Comment on above: Result Comment: URIN ALYSIS Performed By: #### 2 [id number] #### [place] [address] Start: 09-10-2019 Urinalysis HODA EASLEY YOSELIN Comment on above: Result Comment: URIN ALYSIS Performed By: #### 2 [id number] #### [place] [address] Start: 08-10-2019 Adult depression scr eening assessment Anthony Olivares MD Work Phone: Start: 08-06-2019 Urinalysis HODATERRELL EASLEY YOSELIN Comment on above: Result Comment: URIN ALYSIS Performed By: #### 2 [id number] #### [place] [address] Start: 07-23-2019 Colonoscopy Anthony rosa MD Work Phone: Start: 08-09-2018 Lipid 1996 panel - S ellen or Plasma Luz Daniel MD Work Phone: Urine culture Urine culture Plan of Treatment Date Care Activity Detail Author Start: 12-20-2028 Lipid panel Lipid Screening [facility] Start: 12-20-2026 Diabetes Screening Diabetes Screenin g [facility] Start: 09-16-2025 End: 09-16-2025 Patient encounter procedure 09/16/2025 9:00 AM EST Office Visit [facility] General Rheumatology and Arthritis [address] [place] [address] [address] [place], [place] [phone] Dorota Smith MD [address] [place], [place] [phone] 6 months in office PA [facility]ology [facility] Arth[facility] Comment on above: 6 months in office P A Start: 09-14-2025 BP Controlled (<130/80) BP Controlle d (<130/80) [facility] Start: 08-15-2025 End: 08-15-2025 Patient encounter procedure 08/15/2025 2:20 PM EDT Office Visit [facility] [address] [place] [id number] Anthony Olivares MD [address] [place], [place] [phone] f/u [facility] Comment on above: f/u Start: 07-17-2025 BP Controlled (<130/80) BP Controlle d (<130/80) [facility] Start: 07-15-2025 Influenza vaccination Influenza Vacc ine (#1) [facility] Start: 05-23-2025 End: 05-23-2025 Patient encounter procedure 05/23/2025 4:00 PM EDT Office Visit [facility] [address] [place] [phone] Anthony Olivares MD [address] [place] [address] Virtual f/u per Dr Olivares.I spoke with Nursing Facility where patient is at [facility] Comment on above: Virtual f/u per Dr Leonie herrera.I spoke with Nursing Facility where patient is at Start: 03-20-2025 End: 03-20-2025 Patient encounter procedure 03/20/2025 9:00 AM EDT Office Visit [facility] [place] General Rheumatology and Arthritis [address] [place], [place] [phone] Leeann Lopez PA-C [address] [place], [place] [phone] 6 months in office PA [facility]ology [facility] Comment on above: 6 months in office P A Start: 02-26-2025 End: 02-26-2025 Patient encounter procedure 02/26/2025 9:00 AM EDT Appointment [facility] [address] [place] [address] [address] Elise Jack, granulomatosis, () Infusion Center Comment on above: Dr Elise Jack, granulomatosis, () Start: 02-20-2025 Covid-19 Vaccine (9 - Pfizer risk ) Covid-19 Vaccine (9 - Pfizer risk ) [facility] Start: 12-20-2024 BP Controlled (<130/80) BP Controlle d (<130/80) [facility] Start: 12-20-2024 Complete blood count Hemoglobin/Timo tocrit [facility] Start: 12-20-2024 Creatinine measurement Serum Creatin ine [facility] Start: 11-20-2024 End: 11-20-2024 Patient encounter procedure 11/20/2024 11:00 AM EST Office Visit Kidney [facility] [address] [place] [phone] Anthony Olivares MD [address] [place] [address] follow up in October per Dr Olivares Kidney [facility] Comment on above: follow up in per Dr Olivares Start: 11-14-2024 Medicare Advantage Annual Wellness Visit Medicare Advantage Annual Wellness Visit [facility] Start: 10-17-2024 Covid-19 Vaccine () Covid-19 Vaccine () [facility] Start: 09-14-2024 End: 09-14-2024 Patient encounter procedure 09/14/2024 9:00 AM EDT Office Visit [facility] [place] [facility] Arthritis [address] [place], [place] [phone] Dorota Smith MD [address] [place], [place] [phone] RA/Trans from Dr Daniel to [facility] [place] [facility] Comment on above: RA/Trans from Dr Ruben welsh to [facility] Start: 08-09-2024 End: 08-09-2024 Patient encounter procedure 08/09/2024 7:00 AM EDT Appointment Infusion Center [address] [place] [address] rituximab, M32.30 elise(RK) Infusion Center Comment on above: rituximab, M32.30 , elise(RK) Start: 07-17-2024 End: 07-17-2024 Patient encounter procedure 07/17/2024 11:20 AM EDT Office Visit Kidney [facility] [address] [address] Anthony Olivares MD [address] [place] [address] Vasculitis Renal follow up [facility] Comment on above: Vasculitis Renal fol low up Start: 07-15-2024 Covid-19 Vaccine ( season) Covid-19 Vaccine ( season) [facility] Start: 07-15-2024 Covid-19 Vaccine ( season) Covid-19 Vaccine ( season) [facility] Start: 07-15-2024 Influenza vaccination Influenza Vacc ine (#1) [facility] Start: 05-21-2024 End: 05-21-2024 Patient encounter procedure 05/21/2024 9:20 AM EDT Office Visit [facility] General Rheumatology and Arthritis [address] [place], [place] [phone] Dorota Smith MD [address] [place], [place] [address] RA/Trans from Dr Daniel to [facility] General Rheumatology and Arthritis Comment on above: RA/Trans from Dr Ruben welhs to [facility] Start: 03-09-2024 Lipid panel Lipid Screening [facility] Start: 02-21-2024 PROSTATE CANCER SCREENING DISCUSSION PROSTATE CANCER SCREENING DISCUSSION [facility] Start: 02-21-2024 Prostate specific antigen measurement Prostate Cancer Screening Discussion [facility] Start: 12-20-2023 End: 03-20-2024 25-hydroxyvitamin D3 [Mass/volume] in Serum or Plasma [facility] Work Phone: Comment on above: Expected: 12/20/2023 , Expires: 03/20/2024 Start: 12-12-2023 Covid-19 Vaccine () Covid-19 Vaccine () [facility] Start: 11-14-2023 Behavioral Health Screening Behavioral Health Screening [facility] Start: 11-14-2023 [facility] Start: 11-04-2023 Diabetes Screening Diabetes Screenin [facility] Start: 11-03-2023 BP CONTROLLED (<130/80) BP CONTROLLE D (<130/80) [facility] Start: 09-18-2023 DIABETES SCREEN DIABETES SCREEN [facility] Start: 09-18-2023 Diabetes Screening Diabetes Screenin g [facility] Start: 08-09-2023 Lipid 1996 panel - S ellen or Plasma Lipid Screening [facility] Start: 08-09-2023 LIPID SCREEN LIPID SCREEN [facility] Start: 07-15-2023 Covid-19 Vaccine ( season) Covid-19 Vaccine () [facility] Start: 07-15-2023 Influenza vaccination [facility] Start: 2023 RSV Vaccine (1 - 1-d ose 60+ series) RSV Vaccine (1 - 1-dose 60+ series) [facility] Start: 2023 RSV Vaccine (1 - Ris k 60-74 years 1-dose series) RSV Vaccine (1 - Risk 60-74 years 1-dose series) [facility] Start: 11-14-2022 DEPRESSION ASSESSMENT DEPRESSION ASS ESSMENT [facility] Start: 11-03-2022 End: 11-03-2023 Chronic hepatitis differentiation between hepatitis B and C virus panel - Serum or Plasma HEP REMOTE PANEL BL Lab Routine Granulomatosis with polyangiitis with renal involvement (HCC) Expected: 11/03/2022, Expires: 11/03/2023 [facility] Work Phone: Comment on above: Expected: 11/03/2022 , Expires: 11/03/2023 Start: 07-23-2022 Colonoscopy COLONOSCOPY [facility] Start: 07-23-2022 COLORECTAL CANCER SCREENING COLORECTAL CANCER SCREENING [facility] Start: 07-23-2022 Screening for malign ant neoplasm of colon [facility] Start: 07-15-2022 Influenza vaccination INFLUENZA (#1) [facility] Start: 04-29-2022 COVID-19 VACCINE (6 - Booster for Pfizer series) COVID-19 VACCINE (6 - Booster for Pfizer series) [facility] Start: 01-04-2022 COVID-19 VACCINE (5 - Booster for Pfizer series) COVID-19 VACCINE (5 - Booster for Pfizer series) [facility] Start: 11-14-2021 DEPRESSION ASSESSMENT DEPRESSION ASS ESSMENT [facility] Start: 11-04-2021 Creatinine measurement [facility] Start: 11-04-2021 Potassium monitoring Potassium monit oring [facility] [place] Start: 11-02-2021 HEMOGLOBIN/HEMATOCRIT HEMOGLOBIN/HEM ATOCRIT [facility] Start: 09-18-2021 SERUM CREATININE SERUM CREATININE Cl [facility] Start: 11-09-2020 Influenza vaccination LUNG CANCER SC REENING [facility] Start: 11-09-2020 Screening for malign ant neoplasm of lung Lung Cancer Screening [facility] Start: 08-10-2020 Adult depression screening assessment DEPRESSION SCREENING [facility] Start: 07-15-2020 Influenza vaccination Flu vaccine (# 1) 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 DIPTI DISEASE VISIT ANNUAL PCP TEAM CHRONIC DISEASE VISIT [facility] Start: 07-10-2019 PNEUMOCOCCAL (3 - PP SV23 if available, else PCV20) PNEUMOCOCCAL (3 - PPSV23 if available, else PCV20) [facility] Start: 07-10-2019 PNEUMOCOCCAL (3 - PP SV23 or PCV20) PNEUMOCOCCAL (3 - PPSV23 or PCV20) [facility] Start: 07-10-2019 Pneumococcal vaccination Pneum ococcal Vaccine (3 - PPSV23 or PCV20) [facility] Start: 09-04-2018 Pneumococcal vaccination Pneum ococcal Vaccine (3 of 3 - PPSV23 or PCV20) [facility] Start: 08-16-2014 TWO PNEUMOVAX 5 YEAR S APART PRIOR TO AGE 65 (#2) TWO PNEUMOVAX 5 YEARS APART PRIOR TO AGE 65 (#2) [facility] Start: 2013 SHINGRIX VACCINE (1 of 2) SHINGRIX VACCINE (1 of 2) [facility] Start: 2008 COLOGUARD (FIT-DNA) COLOGUARD (FIT-D NA) [facility] Start: [address] COLONOGRAPHY [facility] Start: 2008 FECAL OCCULT BLOOD FECAL OCCULT BLOO D [facility] Start: 2008 Screening for malign ant neoplasm of colon [facility] Start: 2008 SIGMOIDOSCOPY SIGMOIDOSCOPY [facility] Start: 1982 SHINGRIX VACCINE (1 of 2) SHINGRIX VACCINE (1 of 2) [facility] Start: 1982 Urine microalbumin profile [facility] Start: 1981 Annual PCP Team Certified Addiction Counselor dipti Disease Visit Annual PCP Team Chronic Disease Visit [facility] Start: 1981 Anxiety Screening Anxiety Screening [facility] Start: 1981 BP CONTROLLED (<130/80) BP CONTROLLE D (<130/80) [facility] Start: 1981 Depression Screening Depression Scre ening [facility] CBC Auto Differential CBC Auto D ifferential Lab Routine Daily until discontinued starting 11/03/2020, 2 completed [facility] [place] Comment on above: Daily until disconti nued starting 11/03/2020, 2 completed End: 12-19-2024 CBC W Auto Differential panel - Blood CBC + DIFF Lab Routine Stage 3b chronic kidney disease (HCC) Granulomatosis with polyangiitis with renal involvement (HCC) Once per month for 13 Occurrences starting 12/20/2023 until 12/19/2024, 1 completed [facility] Work Phone: Comment on above: Once per month for 1 3 Occurrences starting 12/20/2023 until 12/19/2024, 1 completed End: 05-23-2026 CBC W Auto Differential panel - Blood COMPLETE BLOOD COUNT AND DIFFERENTIAL Lab Routine Granulomatosis with polyangiitis with renal involvement (HCC) Every 2 months for 7 Occurrences starting 05/23/2025 until 05/23/2026 [facility] Comment on above: Every 2 months for 7 Occurrences starting 05/23/2025 until 05/23/2026 End: 12-19-2024 Comprehensive metabolic 2000 panel - Serum or Plasma COMP METABOLIC PANEL Lab Routine Stage 3b chronic kidney disease (HCC) Granulomatosis with polyangiitis with renal involvement (HCC) Once per month for 13 Occurrences starting 12/20/2023 until 12/19/2024, 1 completed [facility] Work Phone: Comment on above: Once per month for 1 3 Occurrences starting 12/20/2023 until 12/19/2024, 1 completed End: 05-23-2026 Comprehensive metabolic 2000 panel - Serum or Plasma COMPREHENSIVE METABOLIC PANEL Lab Routine Granulomatosis with polyangiitis with renal involvement (HCC) Every 2 months for 7 Occurrences starting 05/23/2025 until 05/23/2026 [facility] Work Phone: Comment on above: Every 2 months for 7 Occurrences starting 05/23/2025 until 05/23/2026 Comprehensive Metabo lic Panel w/ Reflex to MG Comprehensive Metabolic Panel w/ Reflex to MG Lab Routine Daily until discontinued starting 10/28/2020, 7 completed [place], [place] Comment on above: Daily until disconti nued starting 10/28/2020, 7 completed Nasal Cannula Oxygen Nasal Cannu la Oxygen Respiratory Care Routine Daily until discontinued starting 10/28/2020 [place] Comment on above: Daily until disconti nued starting 10/28/2020 Nebulizer therapy HHN Treatment Respiratory Care Routine 0600, 1000, 1400, 1800, 2200 until discontinued starting 10/30/2020 [place], [place] Comment on above: 0600, 1000, 1400, 18 00, 2200 until discontinued starting 10/30/2020 Oxygen therapy [[facility] Data Set] Initiate Oxygen Therapy Protocol Respiratory Care Routine Daily until discontinued starting 10/28/2020 [place], [place] Comment on above: Daily until disconti nued starting 10/28/2020 End: 12-19-2024 Phosphate [Mass/volume] in Serum or Plasma PHOSPHORUS INORGANIC Lab Routine Stage 3b chronic kidney disease (HCC) Granulomatosis with polyangiitis with renal involvement (HCC) Once per month for 13 Occurrences starting 12/20/2023 until 12/19/2024, 1 completed [facility] Work Phone: Comment on above: Once per month for 1 3 Occurrences starting 12/20/2023 until 12/19/2024, 1 completed End: 05-23-2026 Phosphate [Mass/volume] in Serum or Plasma PHOSPHORUS INORGANIC Lab Routine Granulomatosis with polyangiitis with renal involvement (HCC) Every 2 months for 7 Occurrences starting 05/23/2025 until 05/23/2026 [facility] Comment on above: Every 2 months for 7 Occurrences starting 05/23/2025 until 05/23/2026 End: 12-19-2024 Protein/Creatinine [Mass Ratio] in Urine PROTEIN CREATININE RATIO Lab Routine Granulomatosis with polyangiitis with renal involvement (HCC) Once per month for 13 Occurrences starting 12/20/2023 until 12/19/2024 [facility] Work Phone: Comment on above: Once per month for 1 3 Occurrences starting 12/20/2023 until 12/19/2024 UA DIP, URINE (POC) UA DIP, URIN E (POC) Lab Routine Screening for genitourinary condition 1 Occurrences starting 11/20/2024 [facility] Work Phone: Comment on above: 1 Occurrences starti ng 11/20/2024 UA DIP, URINE (POC) UA DIP, URIN E (POC) Lab Routine Screening for genitourinary condition 1 Occurrences starting 05/23/2025 [facility] Work Phone: Comment on above: 1 Occurrences starti ng 05/23/2025 End: 12-19-2024 Urinalysis complete panel - Urine URINALYSIS, WITH MICROSCOPIC Lab Routine Granulomatosis with polyangiitis with renal involvement (HCC) Once per month for 13 Occurrences starting 12/20/2023 until 12/19/2024 [facility] Work Phone: Comment on above: Once per month for 1 3 Occurrences starting 12/20/2023 until 12/19/2024 End: 05-23-2026 Urinalysis complete panel - Urine URINALYSIS, WITH MICROSCOPIC Lab Routine Granulomatosis with polyangiitis with renal involvement (HCC) Every 2 months for 7 Occurrences starting 05/23/2025 until 05/23/2026 [facility] Comment on above: Every 2 months for 7 Occurrences starting 05/23/2025 until 05/23/2026 [facility] Immunizations Immunization Date Immunization Notes Care Provider [facility] 08-15-2024 influenza virus vacc ine, unspecified formulation Anthony Olivares MD Work Phone: [facility] 08-15-2023 influenza virus vacc ine, unspecified formulation Dorota Smith MD Work Phone: [facility] 08-18-2021 influenza, injectabl e, quadrivalent, preservative free Anthony Olivares MD Work Phone: [facility] Work Phone: 08-18-2021 influenza virus vacc ine, unspecified formulation Luz Daniel MD Work Phone: [facility] 08-14-2021 COVID-19 vaccine, ag e 12+ yr ([employer] - PURPLE TOP) Anthony Olivares MD Work Phone: [facility] Work Phone: 08-17-2019 influenza, injectabl e, quadrivalent, preservative free Anthony Olivares MD Work Phone: [facility] 08-02-2018 influenza, injectabl e, quadrivalent, preservative free Anthony Olivares MD Work Phone: [facility] 07-10-2018 pneumococcal conjuga te vaccine, 13 valent Anthony Olivares MD Work Phone: [facility] 08-14-2016 Influenza virus vaccine [facility] 08-14-2016 influenza, seasonal, injectable, preservative free Anthony Olivares MD Work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 XR IMAGING Diagnoses Rheumatoid arthritis involving both hands 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 rheumatoid factor (HCC) Procedures XR HAND GENERAL 3V PA/LAT/OBL RIGHT RADEX HAND MINIMUM 3 VIEWS Luz Daniel MD [address] [place] [address] Xr Imaging Referral ID Status Reason Start Date Expiration Date V isits Requested Visits Authorized [id number] Closed Auto-Generate d Referral 02/26/2022 03/28/2023 1 1 * Diagnostic Procedure Only (Routine) - Closed Specialty Diagnoses / Procedures Referred By Contac t Referred To Contact XR IMAGING Diagnoses Rheumatoid arthritis involving both hands 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 rheumatoid factor (HCC) Procedures XR HAND GENERAL 3V PA/LAT/OBL LEFT RADEX HAND MINIMUM 3 VIEWS Luz Daniel MD [address] [id number] Xr Imaging Referral ID Status Reason Start Date Expiration Date V isits Requested Visits Authorized [id number] Closed Auto-Generate d Referral 02/26/2022 03/28/2023 1 1 [facility])No reason for referral information availableWThe [facility] Work Phone: Reason for visit Narrative* [place] Prior Authorization (Routine) - Authorized Specialty Diagnoses / Procedures Referred By Contac t Referred To Contact Diagnoses 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) Procedures INJ RUXIENCE, 10 MG Anthony Olivares MD [address] [place] [address] Phone: tel: fax: Anthony Olivares MD [address] [place] [address] Phone: tel: fax: Referral ID Status Reason Start Date Expiration Date V isits Requested Visits Authorized [id number] Authorized 01/30/2025 01/31/2026 2 2 [facility] Summary Purpose Family History No Family [...] No March 02, 2019 1:12pm Power of Control Room Tender No March 02 1:12pm Documents on File Type Date Recorded Patient Cmo & President Expl anation Advance Directive(s) 08/17/2019 7:16 PM Advance Directive(s) 08/14/2019 9:32 AM Advance Directive(s) 07/23/2019 12:21 PM Advance Directive(s) 01/05/2019 9:49 AM Advance Directive(s) 06/12/2018 10:01 AM Advance Directive(s) 08/24/2016 10:32 PM Advance Directive(s) 08/11/2016 2:31 PM Documents on File Type Date Recorded Patient Cmo & President Expl anation Advance Directive(s) 08/17/2019 7:16 PM Advance Directive(s) 08/14/2019 9:32 AM Advance Directive(s) 07/23/2019 12:21 PM Advance Directive(s) 01/05/2019 9:49 AM Advance Directive(s) 06/12/2018 10:01 AM Advance Directive(s) 08/24/2016 10:32 PM Advance Directive(s) 08/11/2016 2:31 PM Advance Directive Response Recorded Date/ Time Advance Directives No July 12:38am Living Will No March 02, 2019 12:12pm Power of Control Room Tender No March 02 12:12pm Advance Directive Response [...] with shortness of breath and hypoxia from [place]. He had a positive COVID19 test (more [...] 10/28/20 0000 -- -- -- Aminah León [phone] Admitting Physician: Farrukh Diaz MD PCP: No primary care provider on file. Discharging Nurse: [facility] Unit/Room#: 141/6480 Discharging Unit Phone Number: [phone] Emergency Contact: No emergency contact information on [...] Casillas RN 11/05/20 11/12/20 10/14/2020 Documentation in [place] Disease Reporting System of positive COVID - [...] Assisted Dressing Assisted Toileting Independent Feeding Independent Bag Tester Assisted Med Delivery whole Wound Care Documentation [...] Readmission: 20 Discharging to Facility/ Agency Name: [facility] Address: [address] [place] [id number] Dialysis Facility (if applicable) Name: Address: Dialysis Schedule: Phone: Fax: Low Altitude Air Defense Officer/Weigher Operator signature: at12:24 PM EST PHYSICIAN SECTION [...] PM EST Report given to Yesenia at [place]. * Amaris Ibrahim RCP - 11/04/2020 12:15 PM EST [facility] Respiratory Care Department Progress Note [...] Daniel MD - 11/03/2020 6:05 PM EST [facility] Progress Note Subjective/ 55 [...] in remission from renal perspective. No urgent GEOSPATIAL SCIENTIST indications. Will follow. [facility] * Farrukh Diaz MD - 11/03/2020 1:09 PM EST Hospitalist Progress Note 11/03/2020 1:09 PM [phone]: Please page nm [phone] for patient care issues. [phone]: Please page [facility] night Hospitalist for any [...] of Hospitalist Medicine Inpatient Medical Services PAGER: [phone] * Piyush Daniel MD - 11/02/2020 10:00 [...] remission atleast from renal perspective. No urgent GEOSPATIAL SCIENTIST indications. Will follow. [facility] * Farrukh Diaz MD - 11/02/2020 3:16 PM EST Hospitalist Progress Note 11/02/2020 3:16 PM [phone]: Please page nm [phone] for patient care issues. [phone]: Please page [facility] Hospitalist for any issues. Subjective: Admit Date: [...] of Hospitalist Medicine Inpatient Medical Services PAGER: [phone] * Piyush Daniel MD - 11/01/2020 8:04 PM EST [facility] Progress Note Subjective/ 55 [...] remission atleast from renal perspective. No urgent GEOSPATIAL SCIENTIST indications. Will follow. [facility] * Farrukh Diaz MD - 11/01/2020 3:07 PM EST Hospitalist Progress Note 11/01/2020 3:08 PM [phone]: Please page nm [phone] for patient care issues. [phone]: Please page [facility] night Hospitalist for any [...] of Hospitalist Medicine Inpatient Medical Services PAGER: [phone] * Mia Noyola RCP - 11/01/2020 12:00 [...] EST Hospitalist Progress Note 11/01/2020 11:33 AM [phone]: Please page nm [phone] for patient care issues. [phone]: Please page [facility] night Hospitalist for any [...] of Hospitalist Medicine Inpatient Medical Services PAGER: [phone] * Bakari Hdz MD - 10/31/2020 9:35 AM EST [facility] Progress Note Subjective/ 55 [...] solution 1 ampule 1 ampule Inhalation Q4H ME Farrukh Diaz MD 1 ampule at 10/30/202226 [...] 40 mg 40 mg Oral QAM AC Frarukh Diaz MD 40 mg at 10/30/20 0501 [...] from renal perspective. D/w IMS. No urgent GEOSPATIAL SCIENTIST indications. Will follow. [facility] * Farrukh Diaz MD - 10/30/2020 3:50 PM EST Hospitalist Progress Note 10/30/2020 3:50 PM [phone]: Please page nm [phone] for patient care issues. [phone]: Please page [facility] Hospitalist for any issues. Subjective: Admit Date: [...] NEGATIVE: No targets were detected by the OOgave Upper Respiratory Pathogens PCR Panel. _ Expected Result: Not Detected The Valeritase Upper Respiratory Pathogens PCR Panel can detect [...] management decisions. This assay was developed by [employer] and distributed under an Emergency Use Authorization (EUA) granted by the FDA for the qualitative detection of SARS-CoV-2 nucleic acid. Provider and patient fact sheets can be found at https://www.fda. gov/media/373129/download and https://www.fda.gov/media/455560/download. Assessment / Plan 1. Acute hypoxic respiratory [...] of Hospitalist Medicine Inpatient Medical Services PAGER: [phone] * Bakari Hdz MD - 10/30/2020 10:18 AM EST [facility] Progress Note Subjective/ 55 [...] in remission atleast from renal perspective. D/w [facility]. No urgent GEOSPATIAL SCIENTIST indications. Will follow. [facility] * Jeanie Samuel - 10/30/2020 9:42 AM EST Nutrition rescreen completed. Patient assigned a level 1. * Farrukh Diaz MD - 10/29/2020 5:56 PM EST Hospitalist Progress Note 10/29/2020 5:56 PM [phone]: Please page nm [phone] for patient care issues. [phone]: Please page [facility] night Hospitalist for any [...] NEGATIVE: No targets were detected by the OOgave Upper Respiratory Pathogens PCR Panel. _ Expected Result: Not Detected The OOgave Upper Respiratory Pathogens PCR Panel can detect [...] management decisions. This assay was developed by [employer] and distributed under an Emergency Use Authorization (EUA) granted by the FDA for the qualitative detection of SARS-CoV-2 nucleic acid. Provider and patient fact sheets can be found at https://www.fda. gov/media/120850/download and https://www.fda.gov/media/648539/download. Assessment / Plan 1. Acute hypoxic respiratory [...] of Hospitalist Medicine Inpatient Medical Services PAGER: [phone] * Shirley Casillas RN - 10/29/2020 10:49 AM EST Documentation in [place] disease Reporting System: * Farrukh Diaz MD - 10/29/2020 9:58 AM EST Patient unable to get CTA chest due to DONNA - will hydrate and if able, will get it at a later time. * Irena Land RN - 10/29/2020 12:48 AM EST Patient moved into private bed [address] Mosley. Patients COVID test came back negative. Dr. Pro nursing communications electrician supervisor made aware. documented in this encounter Assessments Diagnosis Pneumonia due to COVID-19 virus- Primary Hypoxia Hypoxemia Hypokalemia Hypopotassemia Stage 3 chronic kidney disease, unspecified whether stage 3a or 3b CKD Chief Complaint and Reason for Visit Chief Complaint JAIL LAB WOR K JAIL LABWORK JAIL LABWORK JAIL LABWORK JAIL LAB WORK JAIL LABWORK Chief Complaint JAIL LABWORK JAIL LABWORK JAIL LAB WORK JAIL LABWORK JAIL LABWORK JAIL LABWORK Chief Complaint JAIL LABWORK JAIL LAB WORK JAIL LABWORK JAIL LABWORK JAIL LABWORK LABWORK JAIL LABWORK Chief Complaint JAIL LABWORK JAIL LAB WORK JAIL LABWORK JAIL LABWORK JAIL LABWORK LABWORK JAIL LABWORK LABWORK Chief Complaint JAIL LAB WOR K JAIL LABWORK JAIL LABWORK JAIL LABWORK LABWORK JAIL LABWORK LABWORK LABWORK Chief Complaint JAIL LABWORK JAIL LABWORK LABWORK JAIL LABWORK LABWORK JAIL LABWORK LABWORK JAIL LAB WORK LABWORK Chief Complaint LABWORK JAIL LABWORK LABWORK JAIL LABWORK LABWORK JAIL LAB WORK LABWORK LABWORK LABWORK Chief Complaint LABWORK JAIL LABWORK LABWORK JAIL LABWORK LABWORK JAIL LAB WORK LABWORK LABWORK LABWORK JAIL LABWORK Chief Complaint JAIL LABWORK LABWORK JAIL LABWORK LABWORK JAIL LAB WORK LABWORK LABWORK LABWORK JAIL LABWORK JAIL LABWORK Chief Complaint LABWORK LABWORK LABWORK JAIL LABWORK JAIL LABWORK JAIL LABWORK Chief Complaint LABWORK LABWORK LABWORK JAIL LABWORK JAIL LABWORK LABWORK JAIL LABWORK Chief Complaint LABWORK LABWORK JAIL LABWORK JAIL LABWORK LABWORK JAIL LABWORK JAIL LAB WORK JAIL LABWORK Chief Complaint LABWORK JAIL LABWORK JAIL LABWORK LABWORK JAIL LABWORK JAIL LAB WORK JAIL LABWORK JAIL LABWORK Chief Complaint LABWORK JAIL LABWORK JAIL LAB WORK JAIL LABWORK JAIL LABWORK LABWORK JAIL LAB WORK LABWORK Chief Complaint JAIL LABWORK JAIL LAB WORK JAIL LABWORK JAIL LABWORK LABWORK JAIL LAB WORK LABWORK LABWORK Chief Complaint JAIL LABWORK JAIL LAB WORK JAIL LABWORK JAIL LABWORK LABWORK JAIL LAB WORK LABWORK LABWORK JAIL LAB WORK Chief Complaint JAIL LABWORK LABWORK JAIL LAB WORK LABWORK LABWORK JAIL LAB WORK JAIL LABWORK Chief Complaint LABWORK JAIL LAB WORK LABWORK LABWORK JAIL LAB WORK JAIL LABWORK LABWORK JAIL LABWORK Chief Complaint JAIL LAB WOR K LABWORK LABWORK JAIL LAB WORK JAIL LABWORK LABWORK JAIL LABWORK LABWORK Chief Complaint JAIL LAB WOR K LABWORK LABWORK JAIL LAB WORK JAIL LABWORK LABWORK JAIL LABWORK LABWORK JAIL LAB WORK Chief Complaint LABWORK LABWORK JAIL LAB WORK JAIL LABWORK LABWORK JAIL LABWORK LABWORK LABWORK JAIL LAB WORK JAIL LABWORK Chief Complaint LABWORK JAIL LAB WORK JAIL LABWORK LABWORK JAIL LABWORK LABWORK LABWORK JAIL LAB WORK JAIL LABWORK LABWORK Chief Complaint JAIL LAB WOR K JAIL LABWORK LABWORK JAIL LABWORK LABWORK LABWORK JAIL LAB WORK JAIL LABWORK LABWORK LABWORK Chief Complaint LABWORK LABWORK JAIL LABWORK JAIL LABWORK LABWORK LABWORK JAIL LAB WORK JAIL LABWORK Chief Complaint JAIL LABWORK JAIL LABWORK LABWORK LABWORK JAIL LAB WORK JAIL LABWORK JAIL LAB WORK LABWORK Chief Complaint LABWORK LABWORK JAIL LAB WORK JAIL LABWORK JAIL LAB WORK LABWORK LABWORK Chief Complaint JAIL LAB WOR K JAIL LABWORK JAIL LAB WORK LABWORK LABWORK JAIL LABWORK JAIL LABWORK Chief Complaint LABWORK LABWORK JAIL LABWORK JAIL LABWORK LABWORK Chief Complaint LABWORK LABWORK JAIL LABWORK JAIL LABWORK LABWORK JAIL LAB WORK Chief Complaint LABWORK LABWORK JAIL LABWORK JAIL LABWORK LABWORK JAIL LAB WORK LABWORK Chief Complaint JAIL LABWORK JAIL LABWORK LABWORK JAIL LAB WORK LABWORK JAIL LABWORK Chief Complaint JAIL LABWORK JAIL LABWORK LABWORK JAIL LAB WORK LABWORK JAIL LABWORK JAIL LAB WORK Chief Complaint LABWORK JAIL LAB WORK LABWORK JAIL LABWORK JAIL LAB WORK JAIL LAB WORK LABWORK Chief Complaint JAIL LAB WOR K LABWORK JAIL LABWORK JAIL LAB WORK JAIL LAB WORK LABWORK LABWORK Chief Complaint JAIL LABWORK JAIL LAB WORK JAIL LAB WORK LABWORK LABWORK LABWORK Chief Complaint Admit Date JAIL LAB WORK September 27 4 5:00am JAIL LAB WORK November 15, 2024 5:00am JAIL LAB WORK November 27, 2024 5:00am JAIL LAB WORK December 28 5:00am JAIL LAB WORK January 02 5:00am JAIL LAB WORK January 03 6:10am Chief Complaint Admit Date JAIL LAB WORK November 15, 2024 5:00am JAIL LAB WORK November 27, 2024 5:00am JAIL LAB WORK December 28 5:00am JAIL LAB WORK January 02 5:00am JAIL LAB WORK January 03 6:10am JAIL LAB WORK January 25, 2025 5 :00am Chief Complaint Admit Date JAIL LAB WORK November 15, 2024 5:00am JAIL LAB WORK November 27, 2024 5:00am JAIL LAB WORK December 28 5:00am JAIL LAB WORK January 02 5:00am JAIL LAB WORK January 03 6:10am JAIL LAB WORK January 25, 2025 5 :00am JAIL LAB WORK January 30, 2025 5 :00am Chief Complaint Admit Date JAIL LAB WORK November 15, 2024 5:00am JAIL LAB WORK November 27, 2024 5:00am JAIL LAB WORK December 28 5:00am JAIL LAB WORK January 02 5:00am JAIL LAB WORK January 03 6:10am JAIL LAB WORK January 25, 2025 5 :00am JAIL LAB WORK January 30, 2025 5 :00am LABWORKJ February 06, 2025 5:0 0am LABWORK February 11, 2025 5:0 0am Chief Complaint Admit Date JAIL LAB WORK November 27, 2024 5:00am JAIL LAB WORK December 28 5:00am JAIL LAB WORK January 02 5:00am JAIL LAB WORK January 03 6:10am JAIL LAB WORK January 25, 2025 5 :00am JAIL LAB WORK January 30, 2025 5 :00am LABWORKJ February 06, 2025 5:0 0am LABWORK February 11, 2025 5:0 0am LABWORK February 27, 2025 5:0 0am Chief Complaint Admit Date JAIL LAB WORK November 27, 2024 5:00am JAIL LAB WORK December 28 5:00am JAIL LAB WORK January 02 5:00am JAIL LAB WORK January 03 6:10am JAIL LAB WORK January 25, 2025 5 :00am JAIL LAB WORK January 30, 2025 5 :00am LABWORKJ February 06, 2025 5:0 0am LABWORK February 11, 2025 5:0 0am JAIL LAB WORK February 25, 2025 5 :00am LABWORK February 27, 2025 5:0 0am Chief Complaint Admit Date JAIL LAB WORK December 28 5:00am JAIL LAB WORK January 02 5:00am JAIL LAB WORK January 03 6:10am JAIL LAB WORK January 25, 2025 5 :00am JAIL LAB WORK January 30, 2025 5 :00am LABWORKJ February 06, 2025 5:0 0am LABWORK February 11, 2025 5:0 0am JAIL LAB WORK February 25, 2025 5 :00am LABWORK February 27, 2025 5:0 0am JAIL LAB WORK March 04, 2025 1 0:30pm Chief Complaint Admit Date JAIL LAB WORK January 25, 2025 5 :00am JAIL LAB WORK January 30, 2025 5 :00am LABWORKJ February 06, 2025 5:0 0am LABWORK February 11, 2025 5:0 0am JAIL LAB WORK February 25, 2025 5 :00am LABWORK February 27, 2025 5:0 0am JAIL LAB WORK March 04, 2025 1 0:30pm LABWORK March 27, 2025 5:00a m JAIL LAB WORK April 01, 2025 5:0 0am Chief Complaint Admit Date JAIL LAB WORK April 24, 2025 5: 00am LABWORK April 26, 2025 5:00 am JAIL LAB WORK May 02, 2025 5: 00am JAIL LAB WORK May 24, 2025 5: 00am JAIL LAB WORK May 26, 2025 8: 00pm JAIL LAB WORK May 28, 2025 5: 00am LABOWORK June 05, 2025 5:00 am LABWORK June 19, 2025 5:0 0am LABWORK June 20, 2025 5:0 0am JAIL LAB WORK June 27, 2025 5:00am JAIL LAB WORK July 01, 2025 6:38am JAIL LAB WORK July 02, 2025 5:00am LABOWRK July 29, 2025 5:00am Chief Complaint Admit Date JAIL LAB WORK April 24, 2025 5: 00am LABWORK April 26, 2025 5:00 am JAIL LAB WORK May 02, 2025 5: 00am JAIL LAB WORK May 24, 2025 5: 00am JAIL LAB WORK May 26, 2025 8: 00pm JAIL LAB WORK May 28, 2025 5: 00am LABOWORK June 05, 2025 5:00 am LABWORK June 19, 2025 5:0 0am LABWORK June 20, 2025 5:0 0am JAIL LAB WORK June 27, 2025 5:00am JAIL LAB WORK July 01, 2025 6:38am JAIL LAB WORK July 02, 2025 5:00am LABOWRK July 29, 2025 5:00am JAIL LAB WORK August 02 5:00am LABWORK August [...] skin eruption Procedures CONSULT TO DERMATOLOGY OFFICE/OUTPATIENT [facility] 60 MINUTES Dorota Smith MD [address] [facility] [address] [place] [address] Referral ID Status Reason Start Date Expiration Date Visits Requested Visits Authorized [id number] Authorized PCP Requested Referral 09/14/2024 09/14/2025 1 1 Additional Source Comments INFORMATION SOURCE (unrecogn ized section and content) DATE CREATED AUTHOR 06/07/2018 [facility] DATE CREATED AUTHOR AUTHOR'S ORGANIZ ATION 04/02/2019 [facility] DATE CREATED AUTHOR AUTHOR'S ORGANIZ ATION 03/30/2020 [facility] DATE CREATED AUTHOR AUTHOR'S ORGANIZ ATION 08/05/2020 [facility] DATE CREATED AUTHOR AUTHOR'S ORGANIZ ATION 11/21/2020 [facility] DATE CREATED AUTHOR AUTHOR'S ORGANIZ ATION 09/18/2024 [facility] DATE CREATED AUTHOR AUTHOR'S ORGANIZ ATION 08/20/2025 [facility] DATE CREATED AUTHOR AUTHOR'S ORGANIZ ATION 08/29/2025 [facility] DATE CREATED AUTHOR AUTHOR'S ORGANIZ ATION 09/19/[address] [facility] (unrecognized sect ion and content) No Status [...] 10 MG IV RITUXIMAB Anthony Olivares MD [address] [id number] 1, Kidney Med Main Infusion Chair [address] [id number] Referral ID Status Reason Start Date Expiration Date V isits Requested Visits Authorized [id number] Authorized 03/31/2022 11/13/2022 99 99 Reason Comments Shortness of Breath Reason Comments Follow Up Reason Comments Infusion iv rituximab Reason Comments Radio Main J1 Specialty Diagnoses / Procedures Referred By Ulises duncan Referred To Contact XR IMAGING Diagnoses Chronic pain of right knee Procedures XR KNEE LIMITED 2V AP/LAT RIGHT RADIOLOGIC EXAMINATION KNEE 1/2 VIEWS Luz Daniel MD [address] [place] [address] Xr Imaging Referral ID Status Reason Start Date Expiration Date V isits Requested Visits Authorized [id number] Closed Auto-Generate d Referral 02/26/2022 03/28/2023 1 1 Reason Comments Rheumatoid Arthritis Reason Comments Follow Up RA- hands, stiff and swollen Reason Comments NO SHOW Reason Comments Patient Update Reason Comments Appointment Specialty Diagnoses / Procedures Referred By Ulises t Referred To Contact Diagnoses 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) Procedures INJ RUXIENCE, 10 MG Anthony Olivares MD [address] [place] [address] Infusion Center [facility] [address] [place] [address] Referral ID Status Reason Start Date Expiration Date V isits Requested Visits Authorized [id number] Authorized 12/27/2023 12/29/2024 24 24 Reason Comments [...] or prosecute any alcohol or drug abuse patient.[facility] the event this information is protected by the Federal Confidentiality of Alcohol and Drug Abuse Patient Records regulations: The Federal rules restrict any use of the information to criminally investigate or prosecute any alcohol or drug abuse patient.[facility] the event this information is protected by the Federal Confidentiality of Alcohol and Drug Abuse Patient Records regulations: The Federal rules restrict any use of the information to criminally investigate or prosecute any alcohol or drug abuse patient.[facility] the event this information is protected by the Federal Confidentiality of Alcohol and Drug Abuse Patient Records regulations: The Federal rules restrict any use of the information to criminally investigate or prosecute any alcohol or drug abuse patient.[facility] the event this information is protected by the Federal Confidentiality of Alcohol and Drug Abuse Patient Records regulations: The Federal rules restrict any use of the information to criminally investigate or prosecute any alcohol or drug abuse patient.[facility] the event this information is protected by the Federal Confidentiality of Alcohol and Drug Abuse Patient Records regulations: The Federal rules restrict any use of the information to criminally investigate or prosecute any alcohol or drug abuse patient.[facility]In the event this information is protected by the Federal Confidentiality of Alcohol and Drug Abuse Patient Records regulations: The Federal rules restrict any use of the information to criminally investigate or prosecute any alcohol or drug abuse patient.[facility]In the event this information is protected by the Federal Confidentiality of Alcohol and Drug Abuse Patient Records regulations: The Federal rules restrict any use of the information to criminally investigate or prosecute any alcohol or drug abuse patient.[facility]In the event this information is protected by the Federal Confidentiality of Alcohol and Drug Abuse Patient Records regulations: The Federal rules restrict any use of the information to criminally investigate or prosecute any alcohol or drug abuse patient.[facility] HospitalIn the event this information is protected by the Federal Confidentiality of Alcohol and Drug Abuse Patient Records regulations: The Federal rules restrict any use of the information to criminally investigate or prosecute any alcohol or drug abuse patient.[facility] HospitalIn the event this information is protected by the Federal Confidentiality of Alcohol and Drug Abuse Patient Records regulations: The Federal rules restrict any use of the information to criminally investigate or prosecute any alcohol or drug abuse patient.[facility] HospitalIn the event this information is protected by the Federal Confidentiality of Alcohol and Drug Abuse Patient Records regulations: The Federal rules restrict any use of the information to criminally investigate or prosecute any alcohol or drug abuse patient.[facility] HospitalIn the event this information is protected by the Federal Confidentiality of Alcohol and Drug Abuse Patient Records regulations: The Federal rules restrict any use of the information to criminally investigate or prosecute any alcohol or drug abuse patient.[facility] HospitalIn the event this information is protected by the Federal Confidentiality of Alcohol and Drug Abuse Patient Records regulations: The Federal rules restrict any use of the information to criminally investigate or prosecute any alcohol or drug abuse patient.[facility] HospitalIn the event this information is protected by the Federal Confidentiality of Alcohol and Drug Abuse Patient Records regulations: The Federal rules restrict any use of the information to criminally investigate or prosecute any alcohol or drug abuse patient.[facility]In the event this information is protected by the Federal Confidentiality of Alcohol and Drug Abuse Patient Records regulations: The Federal rules restrict any use of the information to criminally investigate or prosecute any alcohol or drug abuse patient.[facility]In the event this information is protected by the Federal Confidentiality of Alcohol and Drug Abuse Patient Records regulations: The Federal rules restrict any use of the information to criminally investigate or prosecute any alcohol or drug abuse patient.[facility]In the event this information is protected by the Federal Confidentiality of Alcohol and Drug Abuse Patient Records regulations: The Federal rules restrict any use of the information to criminally investigate or prosecute any alcohol or drug abuse patient.[facility] HospitalIn the event this information is protected by the Federal Confidentiality of Alcohol and Drug Abuse Patient Records regulations: The Federal rules restrict any use of the information to criminally investigate or prosecute any alcohol or drug abuse patient.[facility] HospitalIn the event this information is protected by the Federal Confidentiality of Alcohol and Drug Abuse Patient Records regulations: The Federal rules restrict any use of the information to criminally investigate or prosecute any alcohol or drug abuse patient.[facility] HospitalIn the event this information is protected by the Federal Confidentiality of Alcohol and Drug Abuse Patient Records regulations: The Federal rules restrict any use of the information to criminally investigate or prosecute any alcohol or drug abuse patient.[facility]In the event this information is protected by the Federal Confidentiality of Alcohol and Drug Abuse Patient Records regulations: The Federal rules restrict any use of the information to criminally investigate or prosecute any alcohol or drug abuse patient.[facility]In the event this information is protected by the Federal Confidentiality of Alcohol and Drug Abuse Patient Records regulations: The Federal rules restrict any use of the information to criminally investigate or prosecute any alcohol or drug abuse patient.[facility] HospitalIn the event this information is protected by the Federal Confidentiality of Alcohol and Drug Abuse Patient Records regulations: The Federal rules restrict any use of the information to criminally investigate or prosecute any alcohol or drug abuse patient.[facility]In the event this information is protected by the Federal Confidentiality of Alcohol and Drug Abuse Patient Records regulations: The Federal rules restrict any use of the information to criminally investigate or prosecute any alcohol or drug abuse patient.[facility] HospitalIn the event this information is protected by the Federal Confidentiality of Alcohol and Drug Abuse Patient Records regulations: The Federal rules restrict any use of the information to criminally investigate or prosecute any alcohol or drug abuse patient.[facility] HospitalIn the event this information is protected by the Federal Confidentiality of Alcohol and Drug Abuse Patient Records regulations: The Federal rules restrict any use of the information to criminally investigate or prosecute any alcohol or drug abuse patient.[facility] HospitalIn the event this information is protected by the Federal Confidentiality of Alcohol and Drug Abuse Patient Records regulations: The Federal rules restrict any use of the information to criminally investigate or prosecute any alcohol or drug abuse patient.[facility] HospitalIn the event this information is protected by the Federal Confidentiality of Alcohol and Drug Abuse Patient Records regulations: The Federal rules restrict any use of the information to criminally investigate or prosecute any alcohol or drug abuse patient.[facility] HospitalIn the event this information is protected by the Federal Confidentiality of Alcohol and Drug Abuse Patient Records regulations: The Federal rules restrict any use of the information to criminally investigate or prosecute any alcohol or drug abuse patient.[facility] HospitalIn the event this information is protected by the Federal Confidentiality of Alcohol and Drug Abuse Patient Records regulations: The Federal rules restrict any use of the information to criminally investigate or prosecute any alcohol or drug abuse patient.[facility] HospitalIn the event this information is protected by the Federal Confidentiality of Alcohol and Drug Abuse Patient Records regulations: The Federal rules restrict any use of the information to criminally investigate or prosecute any alcohol or drug abuse patient.[facility] HospitalIn the event this information is protected by the Federal Confidentiality of Alcohol and Drug Abuse Patient Records regulations: The Federal rules restrict any use of the information to criminally investigate or prosecute any alcohol or drug abuse patient.[facility] HospitalIn the event this information is protected by the Federal Confidentiality of Alcohol and Drug Abuse Patient Records regulations: The Federal rules restrict any use of the information to criminally investigate or prosecute any alcohol or drug abuse patient.[facility] HospitalIn the event this information is protected by the Federal Confidentiality of Alcohol and Drug Abuse Patient Records regulations: The Federal rules restrict any use of the information to criminally investigate or prosecute any alcohol or drug abuse patient.[facility] Care Teams (unrecognized sec tion and content) Shotweld Operator Relationship Specialty Start Date End Date Elgin Bal MD [address] [place], [place] [id number] PCP - General Family Practice 12/25/12 Anthony Olivares MD [address] [place], [place] [id number] Public Information Specialist Nephrology 03/19/21 Anthony Olivares MD [address] [place], [place] [id number] Primary Staff Physician Nephrology 12/10/21 Shotweld Operator Relationship Specialty Start Date End Date Elgin Bal MD [address] [place], [place] [id number] PCP - General Family Practice 12/25/12 Anthony Olivares MD [address] [place] [address] Public Information Specialist Nephrology 03/19/21 Anthony Olivares MD [address] [place] [address] Primary Staff Physician Nephrology 12/10/21 Shotweld Operator Relationship Specialty Start Date End Date Elgin Bal MD [address] [place] [address] PCP - General Family Practice 12/25/12 Anthony Olivares MD [address] [place] [place] [address] Public Information Specialist Nephrology 03/19/21 Anthony Olivares MD [address] [place] [address] Primary Staff Physician Nephrology 12/10/21 Shotweld Operator Relationship Specialty Start Date End Date Elgin Bal MD [address] [place] [address] PCP - General Family Practice 12/25/12 Anthony Olivares MD [address] [place] [place] [address] Public Information Specialist Nephrology 03/19/21 Anthony Olivares MD [address] [place] [place] [address] Primary Staff Physician Nephrology 12/10/21 Shotweld Operator Relationship Specialty Start Date End Date Elgin Bal MD [address] [place] [address] PCP - General [facility] Practice 12/25/12 Anthony Olivares MD [address] [place] [address] Public Information Specialist Nephrology 03/19/21 Anthony Olivares MD [address] [facility] [place] [address] Primary Staff Physician Nephrology 12/10/21 Shotweld Operator Relationship Specialty Start Date End Date Elgin Bal MD [address] [place] [address], [place] [address] PCP - General Family Practice 12/25/12 Anthony Olivares MD [address] [place] [address] Public Information Specialist Nephrology 03/19/21 Anthony Olivares MD [address] [place] [address] Primary Staff Physician Nephrology 12/10/21 Shotweld Operator Relationship Specialty Start Date End Date Elgin Bal MD [address] [place] [address] PCP - General Family Medicine 12/25/12 Anthony Olivares MD [address] [place] [address] Public Information Specialist Nephrology 03/19/21 Anthony Olivares MD [address] [place] [address] Primary Staff Physician Nephrology 12/10/21 Shotweld Operator Relationship Specialty Start Date End Date Elgin Bal MD [address] [place] [address] PCP - General Family Medicine 12/25/12 Anthony Olivares MD [address] [place] [address] Public Information Specialist Nephrology 03/19/21 Anthony Olivares MD [address] [place] [address] Primary Staff Physician Nephrology 12/10/21 Shotweld Operator Relationship Specialty Start Date End Date Elgin Bal MD [address] [place] [address] PCP - General Family Medicine 12/25/12 Anthony Olivares MD [address] [place], [place] [id number] Public Information Specialist Nephrology 03/19/21 Anthony Olivares MD [address] [place] [address] Primary Staff Physician Nephrology 12/10/21 Shotweld Operator Relationship Specialty Start Date End Date Elgin Bal MD [address] [place] [address] PCP - General Family Medicine 12/25/12 Anthony Olivares MD [address] [place] [address] Public Information Specialist Nephrology 03/19/21 Anthony Olivares MD [address] [place] [address] Primary Staff Physician Nephrology 12/10/21 [...] CHANDLER Attending Provider, Referring Prov ider Active Shotweld Operator Relationship Specialty Start Date End Date Elgin Bal MD [address] [place] [address] PCP - General Family Medicine 12/25/12 Anthony Olivares MD [address] [place], [place] [id number] Public Information Specialist Nephrology 03/19/21 Anthony Olivares MD [address] [place], [place] [id number] Primary Staff Physician Nephrology 12/10/21 Team Status: Inactive Member Role Status Dates Dr. Elgin Bal MD Primary Care Provider Active Dr. Alfredo Phipps MD Attending Provider Active Team Status: Active Member Role Status Dates Dr. Elgin Bal MD Primary Care Provider Active Adam CHANDLER Attending Provider, Referring Prov ider Active Shotweld Operator Relationship Specialty Start Date End Date Elgin Bal MD [address] [place], [place] [address]291 PCP - General Family Medicine 12/25/12 Anthony Olivares MD [address] [place], [place] [id number] Public Information Specialist Nephrology 03/19/21 Anthony Olivares MD [address] [place], [place] [id number] Primary Staff Physician Nephrology 12/10/21 Shotweld Operator Relationship Specialty Start Date End Date Elgin Bal MD [address] [place] [address] PCP - General Family Medicine 12/25/12 Anthony Olivares MD [address] [place] [address] Public Information Specialist Nephrology 03/19/21 Anthony Olivares MD [address] [place], [place] [id number] Primary Staff Physician Nephrology 12/10/21 Shotweld Operator Relationship Specialty Start Date End Date Alfredo Phipps MD [address] [facility] [address] [place], [place] [id number] PCP - General Internal Medicine 10/19/23 Anthony Olivares MD [address] [place], [place] [id number] Public Information Specialist Nephrology 03/19/21 Anthony Olivares MD [address] [place] [address] Primary Staff Physician Nephrology 12/10/21 Shotweld Operator Relationship Specialty Start Date End Date Alfredo Phipps MD [address] [facility] [address] [place] [address] PCP - General Internal Medicine 10/19/23 Anthony Olivares MD [address] [place] [address] Public Information Specialist Nephrology 03/19/21 Anthony Olivares MD [address] [place] [address] Primary Staff Physician Nephrology 12/10/21 Shotweld Operator Relationship Specialty Start Date End Date Alfredo Phipps MD [address] [place] [address] [place] [address] PCP - General Internal Medicine 10/19/23 Atnhony Olivares MD [address] [place] [address] Public Information Specialist Nephrology 03/19/21 Anthony Olivares MD [address] [place] [address] Primary Staff Physician Nephrology 12/10/21 Shotweld Operator Relationship Specialty Start Date End Date Alfredo Phipps MD [address] [facility] [place] [address] [place] [address] PCP - General Internal Medicine 10/19/23 Anthony Olivares MD [address] [place] [address] Public Information Specialist Nephrology 03/19/21 Anthony Olivares MD [address] [place] [address] Primary Staff Physician Nephrology 12/10/21 Shotweld Operator Relationship Specialty Start Date End Date Alfredo Phipps MD [address] [facility] [place] [address] [place] [address] PCP - General Internal Medicine 10/19/23 Anthony Olivares MD [address] [place] [address] Public Information Specialist Nephrology 03/19/21 Anthony Olivares MD [address] [place] [address] Primary Staff Physician Nephrology 12/10/21 Shotweld Operator Relationship Specialty Start Date End Date Alfredo Phipps MD [address] [place] [address] [place] [address] PCP - General Internal Medicine 10/19/23 Anthony Olivares MD [address] [place] [address] Public Information Specialist Nephrology 03/19/21 Anthony Olivares MD [address] [place] [address] Primary Staff Physician Nephrology 12/10/21 Shotweld Operator Relationship Specialty Start Date End Date Alfredo Phipps MD [address] [place] [address] [place] [address] PCP - General Internal Medicine 10/19/23 Anthony Olivares MD [address] [place] [address] Public Information Specialist Nephrology 03/19/21 Anthony Olivares MD [address] [place] [address] Primary Staff Physician Nephrology 12/10/21 Shotweld Operator Relationship Specialty Start Date End Date Alfredo Phipps MD [address] [place] [address] [place] [address] PCP - General Internal Medicine 10/19/23 Anthony Olivares MD [address] [place] [address] Public Information Specialist Nephrology 03/19/21 Anthony Olivares MD [address] [place] [address] Primary Staff Physician Nephrology 12/10/21 Shotweld Operator Relationship Specialty Start Date End Date Alfredo Phipps MD [address] [facility] [address] [place] [address] PCP - General Internal Medicine 10/19/23 Anthony Olivares MD [address] [place] [address] Public Information Specialist Nephrology 03/19/21 Anthony Olivares MD [address] [place] [address] Primary Staff Physician Nephrology 12/10/21 Shotweld Operator Relationship Specialty Start Date End Date Alfredo Phipps MD [address] [facility] [address] [place] [address] PCP - General Internal Medicine 10/19/23 Anthony Olivares MD [address] [place] [address] Public Information Specialist Nephrology 03/19/21 Anthony Olivares MD [address] [place] [address] Primary Staff Physician Nephrology 12/10/21 Shotweld Operator Relationship Specialty Start Date End Date Alfrdeo Phipps MD [address] [facility] [place] [address] [place] [address] PCP - General Internal Medicine 10/19/23 Anthony Olivares MD [address] [place] [address] Public Information Specialist Nephrology 03/19/21 Anthony Olivares MD [address] [place] [address] Primary Staff Physician Nephrology 12/10/21 Shotweld Operator Relationship Specialty Start Date End Date Alfredo Phipps MD [address] [facility] [address] [place] [address] PCP - General Internal Medicine 10/19/23 Anthony Olivares MD [address] [place] [address] Public Information Specialist Nephrology 03/19/21 Anthony Olivares MD [address] [place] [address] Primary Staff Physician Nephrology 12/10/21 Shotweld Operator Relationship Specialty Start Date End Date Alfredo Phipps MD [address] [facility] [place] [address] [place] [address] PCP - General Internal Medicine 10/19/23 Anthony Olivares MD [address] [place] [address] Public Information Specialist Nephrology 03/19/21 Anthony Olivares MD [address] [place] [address] Primary Staff Physician Nephrology 12/10/21 Shotweld Operator Relationship Specialty Start Date End Date Alfredo Phipps MD [address] [place] [address] [place] [address] PCP - General Internal Medicine 10/19/23 Anthony Olivares MD [address] [place], [place] [id number] Public Information Specialist Nephrology 03/19/21 Anthony Olivares MD [address] [place] [address] Primary Staff Physician Nephrology 12/10/21 [...] January 30, 2025 End: January 30, 2025 Shotweld Operator Relationship Specialty Start Date End Date Alfredo Phipps MD [address] [facility] [address] [place] [address] PCP - General Internal Medicine 10/19/23 Anthony Olivares MD [address] [place] [address] Public Information Specialist Nephrology 03/19/21 Anthony Olivares MD [address] [place] [address] Primary Staff Physician Nephrology 12/10/21 Team Status: [...] Provider Active St art: May 02, 2025 Shotweld Operator Relationship Specialty Start Date End Date Alfredo Phipps MD [address] [facility] [place] [address] [place] [address] PCP - General Internal Medicine 10/19/23 Anthony Olivares MD [address] [place] [address] Public Information Specialist Nephrology 03/19/21 Anthony Olivares MD [address] [place] [address] Primary Staff Physician Nephrology 12/10/21 Shotweld Operator Relationship Specialty Start Date End Date Alfredo Phipps MD [address] [facility] [place] [address] [place] [address] PCP - General Internal Medicine 10/19/23 Anthony Olivares MD [address] [place], [place] [id number] Public Information Specialist Nephrology 03/19/21 Anthony Olivares MD [address] [place], [place] [id number] Primary Staff Physician Nephrology 12/10/21 Shotweld Operator Relationship Specialty Start Date End Date Alfredo Phipps MD [address] [facility] [address] [place] [address] PCP - General Internal Medicine 10/19/23 Anthony Olivares MD [address] [place] [address] Public Information Specialist Nephrology 03/19/21 Anthony Olivares MD [address] [place] [address] Primary Staff Physician Nephrology 12/10/21 Team Status: Active Member Role/Relationship Status Dates Dr. Elgin Bal MD Primary care physician Active Team Status: Active Member Role/Relationship Status Dates Dr. Eglin Bal MD Primary care physician Active Start: [...] BE BASED ON THE PRIMARY CLINICAL RECORDS. [employer] [facility]. provides no warranty or guarantee of the accuracy or completeness of information in this document.
[2025-10-15 08:33] LABS: Hematocrit 39.8 % (40-54); Hemoglobin 13.0 g/dL (13.0-16.5); Mean Corp Hgb Conc 32.7 g/dL (32-36); Mean Corpuscular Volume 90.0 fL (80-94); Mean Platelet Vol. 9.1 fl (6.2-12.0); Platelet Count 302 K/mm3 (150-450); RBC Distribution Width CV 12.5 % (11.6-14.6); RBC Distribution Width SD 40.7 fl (35.1-43.9); Red Blood Count 4.42 M/mm3 (4.6-6.2); White Blood Count 10.5 K/mm3 (4.4-11.0)
[2025-10-15 08:52] LABS: Anion Gap 10 (5-15); BUN 28 mg/dL (4-19); BUN/Creat Ratio 12.3 RATIO (10-20); Calcium,Total 9.2 mg/dL (7.6-11.0); Carbon Dioxide 23.8 mmol/L (21.0-32.0); Chloride 107 mmol/L (98-108); Glucose 141 mg/dL (70-99); Potassium 4.4 mmol/L (3.3-5.1)
== END ==
LOC: OLS.SANC 04:00
PROVIDERS: PCP Family Medicine; Referring Provider Family Medicine; Visit Provider Family Medicine
DX: E11.9 Type 2 diabetes mellitus without complications (principal); E78.5 Hyperlipidemia, unspecified; I10 Essential (primary) hypertension
CPT/HCPCS: 36415; 80048; 85027

== ENCOUNTER → 2025-10-28 05:00 | Outpatient (REF) | payer MEDICARE, MEDICAID, SELFPAY ==
--- OUTSIDE RECORDS SUMMARY | 2025-10-28 04:18 | XMS RPT_ITS | CCD ---
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 08-09-2025 HbA1c (Bld) [Mass fraction] 6.4 % High <5.7 [facility] Comment on above: Normal < 5.7 % Predi abetic 5.7 - 6.4 % Diabetic >or= 6.5 % Please note range changes. Lithiumon 08-02-2025 LI 0.61 mmol/L Normal 0.60-1.20 [facility] Comment on above: Order Comment: 111-2 Performed By: #### L 500.4050, L501.2300, L501.9060, L100.0100 #### [facility] [address] [place], [place], [address] Vitamin D,25 Hydroxyon 07-31 Vitamin D 25-OH 33.6 ng/mL Normal 30-100 [facility] Comment on above: Order Comment: 111-2 Result Comment: Moriah min D Status Deficiency: <20 ng/mL (50nmol/L) Insufficiency: 20-30 ng/mL (50-75 nmol/L) Sufficiency: 30-100 ng/mL (75-250 nmol/L) Toxicity: >100 ng/mL (>250 nmol/L) Performed By: #### L 500.4050, L501.2300, L501.9060, L100.0100 #### [facility] [address] [place], [place], [address] Absolute lymphocyte countOrd ered By: Alfredo Phipps on 07-29-2025 Lymphocytes Auto (Unsp spec) [#/Vol] 1.68 10*3/uL 0.83-4.51 [facility] Absolute neutrophil countOrd ered By: Alfredo Phipps on 07-29-2025 Neutrophils (Bld) [#/Vol] 5.6 10*3/uL 2.0-7.7 [facility] Anion gap in Serum or Plasma Ordered By: Alfredo Phipps on 07-29-2025 Anion gap [Moles/Vol] 10 mmol/L 03-28 [facility] Automated lymphocyte count a s percentage of total leukocytesOrdered By: Alfredo Phipps on 07-29-2025 Lymphocytes/100 WBC Auto (Unsp spec) 18.7 % Low - [facility] BUN/creatinine ratioOrdered By: Alfredo Phipps on 07-29-2025 Urea nitrogen/Creatinine [Mass ratio] 11.1 mg/mg - [facility] Basophil percentageOrdered B y: Alfredo Phipps on 09-15-2025 Basophils/100 WBC (Bld) 1.2 % High 0-1 [facility] Bilirubin, totalOrdered By: Alfredo Phipps on 07-29-2025 Bilirubin [Mass/Vol] 0.15 mg/dL 0.00-1.30 [facility] CBC W/Diff, Automatedon 07-15 Absolute Lymph 1.68 X10 3/uL Normal 0.83-4.51 [facility] Comment on above: Order Comment: 111-2 Performed By: #### L 500.4050, L501.2300, L501.9060, L100.0100 #### [facility] [address] [place], [address] Absolute Neut 5.6 X10 3/uL Normal 2.0-7.7 [facility] Comment on above: Order Comment: 111-2 Performed By: #### L 500.4050, L501.2300, L501.9060, L100.0100 #### [facility] [address] [place], [address] Basophils/100 WBC (Bld) 1.2 % High 0-1 [facility] Comment on above: Order Comment: 111-2 Performed By: #### L 500.4050, L501.2300, L501.9060, L100.0100 #### [facility] [address] [place], [address] Eosinophils/100 WBC (Bld) 4.2 % Normal 0-5 [facility] Comment on above: Order Comment: 111-2 Performed By: #### L 500.4050, L501.2300, L501.9060, L100.0100 #### [facility] [address] [place], [address] Erythrocyte distribution width (RBC) [Ratio] 12.6 % Normal 11.6-14.6 [facility] Comment on above: Order Comment: 111-2 Performed By: #### L 500.4050, L501.2300, L501.9060, L100.0100 #### [facility] [address] [place], [address] Hematocrit (Bld) [Volume fraction] 38.6 % Low 40-54 [facility] Comment on above: Order Comment: 111-2 Performed By: #### L 500.4050, L501.2300, L501.9060, L100.0100 #### [facility] [address] [place], [address] Hemoglobin (Bld) [Mass/Vol] 12.9 g/dL Low 13.0-16.5 [facility] Comment on above: Order Comment: 111-2 Performed By: #### L 500.4050, L501.2300, L501.9060, L100.0100 #### [facility] [address] [place], [address] IG% 0.400 Normal 0.0-0.9 [facility] Comment on above: Order Comment: 111-2 Result Comment: IG% - Immature Granulocytes (promyelocytes, myelocytes and metamyelocytes) > 1% indicates that a LEFT SHIFT is Present. Performed By: #### L 500.4050, L501.2300, L501.9060, L100.0100 #### [facility] [address] [place], [address] Lymphocytes/100 WBC (Bld) 18.7 % Low 19-41 [facility] Comment on above: Order Comment: 111-2 Performed By: #### L 500.4050, L501.2300, L501.9060, L100.0100 #### [facility] [address] [place], [address] MCH (RBC) [Entitic mass] 30.0 pg Normal 27.0-32.0 [facility] Comment on above: Order Comment: 111-2 Performed By: #### L 500.4050, L501.2300, L501.9060, L100.0100 #### [facility] [address] [place], [address] MCHC (RBC) [Mass/Vol] 33.4 g/dL Normal 32-36 [facility] Comment on above: Order Comment: 111-2 Performed By: #### L 500.4050, L501.2300, L501.9060, L100.0100 #### [facility] [address] [place], [address] MCV (RBC) [Entitic vol] 89.8 fL Normal 80-94 [facility] Comment on above: Order Comment: 111-2 Performed By: #### L 500.4050, L501.2300, L501.9060, L100.0100 #### [facility] [address] [place], [address] Monocytes/100 WBC (Bld) 13.2 % High 0-10 [facility] Comment on above: Order Comment: 111-2 Performed By: #### L 500.4050, L501.2300, L501.9060, L100.0100 #### [facility] [address] [place], [address] Neutrophils/100 WBC (Bld) 62.3 % Normal 47-70 [facility] Comment on above: Order Comment: 111-2 Performed By: #### L 500.4050, L501.2300, L501.9060, L100.0100 #### [facility] [address] [place], [address] Nucleated RBC (Bld) [#/Vol] 0 10*3/uL Normal 0-5 [facility] Comment on above: Order Comment: 111-2 Performed By: #### L 500.4050, L501.2300, L501.9060, L100.0100 #### [facility] [address] [place], [address] Platelet mean volume (Bld) [Entitic vol] 9.6 fL Normal 6.2-12.0 [facility] Comment on above: Order Comment: 111-2 Performed By: #### L 500.4050, L501.2300, L501.9060, L100.0100 #### [facility] [address] [place], [address] Platelets (Bld) [#/Vol] 231 10*3/uL Normal 150-450 [facility] Comment on above: Order Comment: 111-2 Performed By: #### L 500.4050, L501.2300, L501.9060, L100.0100 #### [facility] [address] [place], [address] RBC (Bld) [#/Vol] 4.30 10*6/uL Low 4.6-6.2 [facility] Comment on above: Order Comment: 111-2 Performed By: #### L 500.4050, L501.2300, L501.9060, L100.0100 #### [facility] [address] [place], [address] RDW SD 41.1 fl Normal 35.1-43.9 [facility] Comment on above: Order Comment: 111-2 Performed By: #### L 500.4050, L501.2300, L501.9060, L100.0100 #### [facility] [address] [place], [address] WBC (Bld) [#/Vol] 9.0 10*3/uL Normal 4.4-11.0 [facility] Comment on above: Order Comment: 111-2 Performed By: #### L 500.4050, L501.2300, L501.9060, L100.0100 #### [facility] [address] [place], [address] Carbon dioxide, total [Moles /volume] in Central venous bloodOrdered By: Alfredo Phipps on 07-29-2025 CO2 [Moles/Vol] 22.2 mmol/L 21.0-32.0 [facility] Chloride assayOrdered By: Chan Fiore on 07-29-2025 Chloride [Moles/Vol] 108 mmol/L 98-108 [facility] Comprehensive Metabolic Prof ilon 07-29-2025 Albumin [Mass/Vol] 3.6 g/dL Normal 3.4-4.8 [facility] Comment on above: Order Comment: 111-2 Performed By: #### L 500.4050, L501.2300, L501.9060, L100.0100 #### [facility] [address] [place], [address] Albumin/Globulin [Mass ratio] 1.5 {ratio} Normal 0.9-2.4 [facility] Comment on above: Order Comment: 111-2 Performed By: #### L 500.4050, L501.2300, L501.9060, L100.0100 #### [facility] [address] [place], [address] ALK PHOS 91 U/L Normal 40-129 [facility] Comment on above: Order Comment: 111-2 Performed By: #### L 500.4050, L501.2300, L501.9060, L100.0100 #### [facility] [address] [place], [address] ALT [Catalytic activity/Vol] 12 U/L Normal <=46 [facility] Comment on above: Order Comment: 111-2 Performed By: #### L 500.4050, L501.2300, L501.9060, L100.0100 #### [facility] [address] [place], [address] AST [Catalytic activity/Vol] 12 U/L Normal <=37 [facility] Comment on above: Order Comment: 111-2 Performed By: #### L 500.4050, L501.2300, L501.9060, L100.0100 #### [facility] [address] [place], [address] Bilirubin [Mass/Vol] 0.15 mg/dL Normal 0.00-1.30 [facility] Comment on above: Order Comment: 111-2 Performed By: #### L 500.4050, L501.2300, L501.9060, L100.0100 #### [facility] [address] [place], [address] BUN/CRE 11.1 RATIO Normal 10-20 [facility] Comment on above: Order Comment: 111-2 Performed By: #### L 500.4050, L501.2300, L501.9060, L100.0100 #### [facility] [address] [place], [address] Calcium [Mass/Vol] 9.2 mg/dL Normal 7.6-11.0 [facility] Comment on above: Order Comment: 111-2 Performed By: #### L 500.4050, L501.2300, L501.9060, L100.0100 #### [facility] [address] [place], [address] Chloride [Moles/Vol] 108 mmol/L Normal 98-108 [facility] Comment on above: Order Comment: 111-2 Performed By: #### L 500.4050, L501.2300, L501.9060, L100.0100 #### [facility] [address] [place], [address] CO2 [Moles/Vol] 22.2 mmol/L Normal 21.0-32.0 [facility] Comment on above: Order Comment: 111-2 Performed By: #### L 500.4050, L501.2300, L501.9060, L100.0100 #### [facility] [address] [place], [address] Creatinine [Mass/Vol] 2.36 mg/dL High 0.70-1.20 [facility] Comment on above: Order Comment: 111-2 Performed By: #### L 500.4050, L501.2300, L501.9060, L100.0100 #### [facility] [address] [place], [address] GAP 10 Normal 5-15 [facility] Comment on above: Order Comment: 111-2 Performed By: #### L 500.4050, L501.2300, L501.9060, L100.0100 #### [facility] [address] [place], [address] GFR/1.73 sq M.predicted among non-blacks MDRD (S/P/Bld) [Vol rate/Area] 30 mL/min/{1.73_m2} Low >60 [facility] Comment on above: Order Comment: 111-2 Result Comment: mL/m in/1.73m2 CKD-EPI Creatinine Equation (2020) Performed By: #### L 500.4050, L501.2300, L501.9060, L100.0100 #### [facility] [address] [place], [address] Globulin (S) [Mass/Vol] 2.4 g/dL Normal 2.2-4.2 [facility] Comment on above: Order Comment: 111-2 Performed By: #### L 500.4050, L501.2300, L501.9060, L100.0100 #### [facility] [address] [place], [address] Glucose [Mass/Vol] 136 mg/dL High 70-99 [facility] Comment on above: Order Comment: 111-2 Performed By: #### L 500.4050, L501.2300, L501.9060, L100.0100 #### [facility] [address] [place], [address] Potassium [Moles/Vol] 4.5 mmol/L Normal 3.3-5.1 [facility] Comment on above: Order Comment: 111-2 Performed By: #### L 500.4050, L501.2300, L501.9060, L100.0100 #### [facility] [address] [place], [address] Sodium [Moles/Vol] 140 mmol/L Normal 133-145 [facility] Comment on above: Order Comment: 111-2 Performed By: #### L 500.4050, L501.2300, L501.9060, L100.0100 #### [facility] [address] [place], [address] T PROT 6.0 g/dL Normal 5.9-8.4 [facility] Comment on above: Order Comment: 111-2 Performed By: #### L 500.4050, L501.2300, L501.9060, L100.0100 #### [facility] [address] [place], [address] Urea nitrogen [Mass/Vol] 26 mg/dL High 4-19 [facility] Comment on above: Order Comment: 111-2 Performed By: #### L 500.4050, L501.2300, L501.9060, L100.0100 #### [facility] [address] [place], [address] Eosinophil percentageOrdered By: Alfredo Phipps on 07-29-2025 Eosinophils/100 WBC (Bld) 4.2 % 0-5 [facility] Erythrocyte distribution wid th ratioOrdered By: Alfredo Phipps on 07-29-2025 Erythrocyte distribution width (RBC) [Ratio] 12.6 % 11.6-14.6 [facility] Erythrocyte distribution wid th standard deviationOrdered By: Alfredo Phipps on 07-29-2025 Erythrocyte distribution width (RBC) [Ratio] 41.1 fl 35.1-43.9 [facility] Glomerular filtration rate ( GFR) estimation/1.73 sq m using serum, plasma, or whole bOrdered By: Alfredo Phipps on 07-29-2025 GFR/1.73 sq M.predicted among non-blacks MDRD (S/P/Bld) [Vol rate/Area] 30 mL/min/{1.73_m2} Low >60 [facility] Comment on above: mL/min/1.73m2 CKD-EP I Creatinine Equation (2020) Hematocrit Auto (Bld) [Volum e fraction]Ordered By: Alfredo Phipps on 07-29-2025 Hematocrit (Bld) [Volume fraction] 38.6 % Low 40-54 [facility] Hemoglobin measurementOrdere d By: Alfredo Phipps on 07-29-2025 Hemoglobin (Bld) [Mass/Vol] 12.9 g/dL Low 13.0-16.5 [facility] Immature granulocytes/100 WB C Auto (Bld)Ordered By: Alfredo Phipps on 07-29-2025 Immature granulocytes/100 WBC (Bld) 0.400 % 0.0-0.9 [facility] Comment on above: IG% - Immature Granu locytes (promyelocytes, myelocytes and metamyelocytes) > 1% indicates that a LEFT SHIFT is Present. Laboratory - Chemistry and C hemistry - challengeOrdered By: Alfredo Phipps on 07-29-2025 AST [Catalytic activity/Vol] 12 U/L <38 [facility] MCV (mean corpuscular volume ) determinationOrdered By: Alfredo Phipps on 07-29-2025 MCV (RBC) [Entitic vol] 89.8 fL 80-94 [facility] Mean corpuscular hemoglobin (MCH) determinationOrdered By: Alfredo Phipps on 07-29-2025 MCH (RBC) [Entitic mass] 30.0 pg 27.0-32.0 [facility] Mean corpuscular hemoglobin concentration (MCHC) determinationOrdered By: Alfredo Phipps on 07-29-2025 MCHC (RBC) [Mass/Vol] 33.4 g/dL 32-36 [facility] Mean platelet volume determi nationOrdered By: Alfredo Phipps on 07-29-2025 Platelet mean volume (Bld) [Entitic vol] 9.6 fL 6.2-12.0 [facility] Monocyte percentageOrdered B y: Alfredo Phipps on 07-29-2025 Monocytes/100 WBC (Bld) 13.2 % High 0-10 [facility] Neutrophil percentageOrdered By: Alfredo Phipps on 07-29-2025 Neutrophils/100 WBC (Bld) 62.3 % 47-70 [facility] Nucleated red blood cell per centageOrdered By: Alfredo Phipps on 07-29-2025 Nucleated RBC/100 WBC (Bld) [Ratio] 0 % 0-5 [facility] Phosphoruson 07-29-2025 Phosphate [Mass/Vol] 4.6 mg/dL High 2.7-4.5 [facility] Comment on above: Order Comment: 111-2 Performed By: #### L 500.4050, L501.2300, L501.9060, L100.0100 #### [facility] [address] [place] [address], [address] Platelet countOrdered By: Chan Fiore on 07-29-2025 Platelets (Bld) [#/Vol] 231 10*3/uL 150-450 [facility] Potassium measurement (mass/ volume)Ordered By: Alfredo Phipps on 07-29-2025 Potassium (Unsp spec) [Mass/Vol] 4.5 mmol/L 3.3-5.1 [facility] RBC Auto (Bld) [#/Vol]Ordere d By: Alfredo Phipps on 07-29-2025 RBC (Bld) [#/Vol] 4.30 10*6/uL Low 4.6-6.2 [facility] Serum creatinine measurement (mass/volume)Ordered By: Alfredo Phipps on 07-29-2025 Creatinine [Mass/Vol] 2.36 mg/dL High 0.70-1.20 [facility] Serum globulin measurementOr dered By: Alfredo Phipps on 07-29-2025 Globulin (S) [Mass/Vol] 2.4 g/dL 2.2-4.2 [facility] Serum glucose measurement (m ass/volume)Ordered By: Alfredo Phipps on 07-29-2025 Glucose [Mass/Vol] 136 mg/dL High 70-99 [facility] Serum or plasma alanine sesay otransferase (ALT) measurementOrdered By: Alfredo Phipps on 07-29-2025 ALT [Catalytic activity/Vol] 12 U/L <47 [facility] Serum or plasma albumin you urement (mass/volume)Ordered By: Alfredo Phipps on 07-29-2025 Albumin [Mass/Vol] 3.6 g/dL 3.4-4.8 [facility] Serum or plasma albumin/glob ulin mass ratioOrdered By: Alfredo Phipps on 07-29-2025 Albumin/Globulin [Mass ratio] 1.5 {ratio} 0.9-2.4 [facility] Serum or plasma alkaline hal sphatase measurementOrdered By: Alfredo Phipps on 07-29-2025 ALP [Catalytic activity/Vol] 91 U/L 40-129 [facility] Serum or plasma calcium you urement (mass/volume)Ordered By: Alfredo Phipps on 07-29-2025 Calcium [Mass/Vol] 9.2 mg/dL 7.6-11.0 [facility] Serum or plasma urea nitroge n measurement (mass/volume)Ordered By: Alfredo Phipps on 07-29-2025 Urea nitrogen [Mass/Vol] 26 mg/dL High 4-19 [facility] Sodium levelOrdered By: Raffi Phipps on 07-29-2025 Sodium [Moles/Vol] 140 mmol/L 133-145 [facility] Total proteinOrdered By: Jennifer Phipps on 07-29-2025 Protein [Mass/Vol] 6.0 g/dL 5.9-8.4 [facility] White blood cell (WBC) count Ordered By: Alfredo Phipps on 07-29-2025 WBC (Bld) [#/Vol] 9.0 10*3/uL 4.4-11.0 [facility] Lithiumon 07-02-2025 LI 0.56 mmol/L Low 0.60-1.20 [facility] Comment on above: Order Comment: 111.2 UNKNOWN [id number] Performed By: #### L 501.9060 #### [facility] [address] [place], [address] Bilirubin directOrdered By: Adam Ferraro on 07-01-2025 Bilirubin.direct [Mass/Vol] 0.09 mg/dL 0.00-0.30 [facility] Bilirubin, totalOrdered By: Adam Ferraro on 07-01-2025 Bilirubin [Mass/Vol] 0.16 mg/dL 0.00-1.30 [facility] - Chemistry and C hemistry - challengeOrdered By: Adam Ferraro on 07-01-2025 AST [Catalytic activity/Vol] 11 U/L <38 [facility] Liver Profileon 07-01-2025 Albumin [Mass/Vol] 3.5 g/dL Normal 3.4-4.8 [facility] Comment on above: Performed By: #### L 500.4050, L501.2300, L501.9060, L100.0100 #### [facility] [address] [place], [address] ALK PHOS 88 U/L Normal 40-129 [facility] Comment on above: Performed By: #### L 500.4050, L501.2300, L501.9060, L100.0100 #### [facility] [address] [place], [address] ALT [Catalytic activity/Vol] 13 U/L Normal <=46 [facility] Comment on above: Performed By: #### L 500.4050, L501.2300, L501.9060, L100.0100 #### [facility] [address] [place], [address] AST [Catalytic activity/Vol] 11 U/L Normal <=37 [facility] Comment on above: Performed By: #### L 500.4050, L501.2300, L501.9060, L100.0100 #### [facility] [address] [place], [address] Bilirubin [Mass/Vol] 0.16 mg/dL Normal 0.00-1.30 [facility] Comment on above: Performed By: #### L 500.4050, L501.2300, L501.9060, L100.0100 #### [facility] [address] [place], [address] Bilirubin.direct [Mass/Vol] 0.09 mg/dL Normal 0.00-0.30 [facility] Comment on above: Performed By: #### L 500.4050, L501.2300, L501.9060, L100.0100 #### [facility] [address] [place], [address] Globulin (S) [Mass/Vol] 2.4 g/dL Normal 2.2-4.2 [facility] Comment on above: Performed By: #### L 500.4050, L501.2300, L501.9060, L100.0100 #### [facility] [address] [place], [address] T PROT 5.8 g/dL Low 5.9-8.4 [facility] Comment on above: Performed By: #### L 500.4050, L501.2300, L501.9060, L100.0100 #### [facility] [address] [place], [address] Serum globulin measurementOr dered By: Adam Ferraro on 07-01-2025 Globulin (S) [Mass/Vol] 2.4 g/dL 2.2-4.2 [facility] Serum or plasma alanine sesay otransferase (ALT) measurementOrdered By: Adam Ferraro on 07-01-2025 ALT [Catalytic activity/Vol] 13 U/L <47 [facility] Serum or plasma albumin you urement (mass/volume)Ordered By: Adam Ferraro on 07-01-2025 Albumin [Mass/Vol] 3.5 g/dL 3.4-4.8 [facility] Serum or plasma alkaline hal sphatase measurementOrdered By: Adam Jasmine on 07-01-2025 ALP [Catalytic activity/Vol] 88 U/L 40-129 [facility] Total proteinOrdered By: Benoit ivey Jasmine on 07-01-2025 Protein [Mass/Vol] 5.8 g/dL Low 5.9-8.4 [facility] Serum or plasma uric acid me asurement (mass/volume)Ordered By: Adam Ferraro on 06-27-2025 Urate [Mass/Vol] 5.8 mg/dL 3.5-7.2 [facility] Comment on above: The drugs N-Acetylcy steine and Metamizole may falsely depress this assay. Uric Acidon 06-27-2025 URIC 5.8 mg/dL Normal 3.5-7.2 [facility] Comment on above: Order Comment: [id number] Result Comment: The drugs N-Acetylcysteine and Metamizole may falsely depress this assay. Performed By: #### L 500.4050, L501.2300, L501.9060, L100.0100 #### [facility] [address] [place], [address] Protein+Creatinine Ratio,Uri neon 06-20-2025 PROT:CRE RATIO 227 mg/g CRE High 0-200 [facility] Comment on above: Order Comment: [id number] Performed By: #### L 500.4050, L501.2300, L501.9060, L100.0100 #### [facility] [address] [place], [address] UR CREAT 33.80 mg/dL Low 39.00-259.0 0 [facility] Comment on above: Order Comment: [id number] Performed By: #### L 500.4050, L501.2300, L501.9060, L100.0100 #### [facility] [address] [place], [address] Random urine creatinine you urement (mass/volume)Ordered By: Alfredo Phipps on 06-20-2025 Creatinine Unsp time (U) [Mass/Vol] 33.80 mg/dL Low 39.00-259.0 0 [facility] Urine protein measurement (m ass/volume)Ordered By: Alfredo Phipps on 06-20-2025 Protein (U) [Mass/Vol] 7.7 mg/dL Normal 0.0-12.0 [facility] Comment on above: Order Comment: 111-2 [id number] Performed By: #### L 500.4050, L501.2300, L501.9060, L100.0100 #### [facility] [address] [place], [address] Urine protein/creatinine mas s ratioOrdered By: Alfredo Phipps on 06-20-2025 Protein/Creatinine (U) [Mass ratio] 227 mg/g CRE High 0-200 [facility] Absolute lymphocyte countOrd ered By: Alfredo Phipps on 06-19-2025 Lymphocytes Auto (Unsp spec) [#/Vol] 1.75 10*3/uL 0.83-4.51 [facility] Absolute neutrophil countOrd ered By: Alfredo Phipps on 06-19-2025 Neutrophils (Bld) [#/Vol] 5.4 10*3/uL 2.0-7.7 [facility] Anion gap in Serum or Plasma Ordered By: Alfredo Phipps on 06-19-2025 Anion gap [Moles/Vol] 13 mmol/L 5-15 [facility] Automated lymphocyte count a s percentage of total leukocytesOrdered By: Alfredo Phipps on 06-19-2025 Lymphocytes/100 WBC Auto (Unsp spec) 20.1 % 19-41 [facility] BUN/creatinine ratioOrdered By: Alfredo Phipps on 06-19-2025 Urea nitrogen/Creatinine [Mass ratio] 11.3 mg/mg 10-20 [facility] Basophil percentageOrdered B y: Alfredo Phipps on 06-19-2025 Basophils/100 WBC (Bld) 1.0 % 0-1 [facility] Bilirubin, totalOrdered By: Alfredo Phipps on 06-19-2025 Bilirubin [Mass/Vol] 0.22 mg/dL 0.00-1.30 [facility] CBC W/Diff, Automatedon 08-0 6-2024 Absolute Lymph 1.75 X10 3/uL Normal 0.83-4.51 [facility] Comment on above: Order Comment: 111-2 Performed By: #### L 500.4050, L501.2300, L501.9060, L100.0100 #### [facility] [address] [place], [address] Absolute Neut 5.4 X10 3/uL Normal 2.0-7.7 [facility] Comment on above: Order Comment: 111-2 Performed By: #### L 500.4050, L501.2300, L501.9060, L100.0100 #### [facility] [address] [place], [address] Basophils/100 WBC (Bld) 1.0 % Normal 0-1 [facility] Comment on above: Order Comment: 111-2 Performed By: #### L 500.4050, L501.2300, L501.9060, L100.0100 #### [facility] [address] [place], [address] Eosinophils/100 WBC (Bld) 6.0 % High 0-5 [facility] Comment on above: Order Comment: 111-2 Performed By: #### L 500.4050, L501.2300, L501.9060, L100.0100 #### [facility] [address] [place], [address] Erythrocyte distribution width (RBC) [Ratio] 12.7 % Normal 11.6-14.6 [facility] Comment on above: Order Comment: 111-2 Performed By: #### L 500.4050, L501.2300, L501.9060, L100.0100 #### [facility] [address] [place], [address] Hematocrit (Bld) [Volume fraction] 39.2 % Low 40-54 [facility] Comment on above: Order Comment: 111-2 Performed By: #### L 500.4050, L501.2300, L501.9060, L100.0100 #### [facility] [address] [place], [address] Hemoglobin (Bld) [Mass/Vol] 12.8 g/dL Low 13.0-16.5 [facility] Comment on above: Order Comment: 111-2 Performed By: #### L 500.4050, L501.2300, L501.9060, L100.0100 #### [facility] [address] [place], [address] IG% 0.500 Normal 0.0-0.9 [facility] Comment on above: Order Comment: 111-2 Result Comment: IG% - Immature Granulocytes (promyelocytes, myelocytes and metamyelocytes) > 1% indicates that a LEFT SHIFT is Present. Performed By: #### L 500.4050, L501.2300, L501.9060, L100.0100 #### [facility] [address] [place], [address] Lymphocytes/100 WBC (Bld) 20.1 % Normal 19-41 [facility] Comment on above: Order Comment: 111-2 Performed By: #### L 500.4050, L501.2300, L501.9060, L100.0100 #### [facility] [address] [place], [address] MCH (RBC) [Entitic mass] 30.0 pg Normal 27.0-32.0 [facility] Comment on above: Order Comment: 111-2 Performed By: #### L 500.4050, L501.2300, L501.9060, L100.0100 #### [facility] [address] [place], [address] MCHC (RBC) [Mass/Vol] 32.7 g/dL Normal 32-36 [facility] Comment on above: Order Comment: 111-2 Performed By: #### L 500.4050, L501.2300, L501.9060, L100.0100 #### [facility] [address] [place], [address] MCV (RBC) [Entitic vol] 91.8 fL Normal 80-94 [facility] Comment on above: Order Comment: 111-2 Performed By: #### L 500.4050, L501.2300, L501.9060, L100.0100 #### [facility] [address] [place], [address] Monocytes/100 WBC (Bld) 10.7 % High 0-10 [facility] Comment on above: Order Comment: 111-2 Performed By: #### L 500.4050, L501.2300, L501.9060, L100.0100 #### [facility] [address] [place], [address] Neutrophils/100 WBC (Bld) 61.7 % Normal 47-70 [facility] Comment on above: Order Comment: 111-2 Performed By: #### L 500.4050, L501.2300, L501.9060, L100.0100 #### [facility] [address] [place], [address] Nucleated RBC (Bld) [#/Vol] 0 10*3/uL Normal 0-5 [facility] Comment on above: Order Comment: 111-2 Performed By: #### L 500.4050, L501.2300, L501.9060, L100.0100 #### [facility] [address] [place], [address] Platelet mean volume (Bld) [Entitic vol] 9.5 fL Normal 6.2-12.0 [facility] Comment on above: Order Comment: 111-2 Performed By: #### L 500.4050, L501.2300, L501.9060, L100.0100 #### [facility] [address] [place], [address] Platelets (Bld) [#/Vol] 247 10*3/uL Normal 150-450 [facility] Comment on above: Order Comment: 111-2 Performed By: #### L 500.4050, L501.2300, L501.9060, L100.0100 #### [facility] [address] [place], [address] RBC (Bld) [#/Vol] 4.27 10*6/uL Low 4.6-6.2 [facility] Comment on above: Order Comment: 111-2 Performed By: #### L 500.4050, L501.2300, L501.9060, L100.0100 #### [facility] [address] [place], [address] RDW SD 42.5 fl Normal 35.1-43.9 [facility] Comment on above: Order Comment: 111-2 Performed By: #### L 500.4050, L501.2300, L501.9060, L100.0100 #### [facility] [address] [place], [address] WBC (Bld) [#/Vol] 8.7 10*3/uL Normal 4.4-11.0 [facility] Comment on above: Order Comment: 111-2 Performed By: #### L 500.4050, L501.2300, L501.9060, L100.0100 #### [facility] [address] [place], [address] Carbon dioxide, total [Moles /volume] in Central venous bloodOrdered By: Alfredo Phipps on 06-19-2025 CO2 [Moles/Vol] 19.9 mmol/L Low 21.0-32.0 [facility] Chloride assayOrdered By: Chan Fiore on 06-19-2025 Chloride [Moles/Vol] 105 mmol/L 98-108 [facility] Comprehensive Metabolic Prof ilon 06-19-2025 Albumin [Mass/Vol] 3.6 g/dL Normal 3.4-4.8 [facility] Comment on above: Order Comment: 111-2 Performed By: #### L 500.4050, L501.2300, L501.9060, L100.0100 #### [facility] [address] [place], [address] Albumin/Globulin [Mass ratio] 1.4 {ratio} Normal 0.9-2.4 [facility] Comment on above: Order Comment: 111-2 Performed By: #### L 500.4050, L501.2300, L501.9060, L100.0100 #### [facility] [address] [place], [address] ALK PHOS 91 U/L Normal 40-129 [facility] Comment on above: Order Comment: 111-2 Performed By: #### L 500.4050, L501.2300, L501.9060, L100.0100 #### [facility] [address] [place], [address] ALT [Catalytic activity/Vol] 8 U/L Normal <=46 [facility] Comment on above: Order Comment: 111-2 Performed By: #### L 500.4050, L501.2300, L501.9060, L100.0100 #### [facility] [address] [place], [address] AST [Catalytic activity/Vol] 14 U/L Normal <=37 [facility] Comment on above: Order Comment: 111-2 Performed By: #### L 500.4050, L501.2300, L501.9060, L100.0100 #### [facility] [address] [place], [address] Bilirubin [Mass/Vol] 0.22 mg/dL Normal 0.00-1.30 [facility] Comment on above: Order Comment: 111-2 Performed By: #### L 500.4050, L501.2300, L501.9060, L100.0100 #### [facility] [address] [place], [address] BUN/CRE 11.3 RATIO Normal 10-20 [facility] Comment on above: Order Comment: 111-2 Performed By: #### L 500.4050, L501.2300, L501.9060, L100.0100 #### [facility] [address] [place], [address] Calcium [Mass/Vol] 9.3 mg/dL Normal 7.6-11.0 [facility] Comment on above: Order Comment: 111-2 Performed By: #### L 500.4050, L501.2300, L501.9060, L100.0100 #### [facility] [address] [place], [address] Chloride [Moles/Vol] 105 mmol/L Normal 98-108 [facility] Comment on above: Order Comment: 111-2 Performed By: #### L 500.4050, L501.2300, L501.9060, L100.0100 #### [facility] [address] [place], [address] CO2 [Moles/Vol] 19.9 mmol/L Low 21.0-32.0 [facility] Comment on above: Order Comment: 111-2 Performed By: #### L 500.4050, L501.2300, L501.9060, L100.0100 #### [facility] [address] [place], [address] Creatinine [Mass/Vol] 2.26 mg/dL High 0.70-1.20 [facility] Comment on above: Order Comment: 111-2 Performed By: #### L 500.4050, L501.2300, L501.9060, L100.0100 #### [facility] [address] [place], [address] GAP 13 Normal 5-15 [facility] Comment on above: Order Comment: 111-2 Performed By: #### L 500.4050, L501.2300, L501.9060, L100.0100 #### [facility] [address] [place], [address] GFR/1.73 sq M.predicted among non-blacks MDRD (S/P/Bld) [Vol rate/Area] 32 mL/min/{1.73_m2} Low >60 [facility] Comment on above: Order Comment: 111-2 Result Comment: mL/m in/1.73m2 CKD-EPI Creatinine Equation (2020) Performed By: #### L 500.4050, L501.2300, L501.9060, L100.0100 #### [facility] [address] [place], [address] Globulin (S) [Mass/Vol] 2.5 g/dL Normal 2.2-4.2 [facility] Comment on above: Order Comment: 111-2 Performed By: #### L 500.4050, L501.2300, L501.9060, L100.0100 #### [facility] [address] [place], [address] Glucose [Mass/Vol] 122 mg/dL High 70-99 [facility] Comment on above: Order Comment: 111-2 Performed By: #### L 500.4050, L501.2300, L501.9060, L100.0100 #### [facility] [address] [place], [address] Potassium [Moles/Vol] 4.3 mmol/L Normal 3.3-5.1 [facility] Comment on above: Order Comment: 111-2 Performed By: #### L 500.4050, L501.2300, L501.9060, L100.0100 #### [facility] [address] [place], [address] Sodium [Moles/Vol] 137 mmol/L Normal 133-145 [facility] Comment on above: Order Comment: 111-2 Performed By: #### L 500.4050, L501.2300, L501.9060, L100.0100 #### [facility] [address] [place], [address] T PROT 6.1 g/dL Normal 5.9-8.4 [facility] Comment on above: Order Comment: 111-2 Performed By: #### L 500.4050, L501.2300, L501.9060, L100.0100 #### [facility] [address] [place], [address] Urea nitrogen [Mass/Vol] 26 mg/dL High 4-19 [facility] Comment on above: Order Comment: 111-2 Performed By: #### L 500.4050, L501.2300, L501.9060, L100.0100 #### [facility] [address] [place], [address] Eosinophil percentageOrdered By: Alfredo Phipps on 06-19-2025 Eosinophils/100 WBC (Bld) 6.0 % High 0-5 [facility] Erythrocyte distribution wid th ratioOrdered By: Alfredo Phipps on 06-19-2025 Erythrocyte distribution width (RBC) [Ratio] 12.7 % 11.6-14.6 [facility] Erythrocyte distribution wid th standard deviationOrdered By: Alfredo Phipps on 06-19-2025 Erythrocyte distribution width (RBC) [Ratio] 42.5 fl 35.1-43.9 [facility] Glomerular filtration rate ( GFR) estimation/1.73 sq m using serum, plasma, or whole bOrdered By: Alfredo Phipps on 06-19-2025 GFR/1.73 sq M.predicted among non-blacks MDRD (S/P/Bld) [Vol rate/Area] 32 mL/min/{1.73_m2} Low >60 [facility] Comment on above: mL/min/1.73m2 CKD-EP I Creatinine Equation (2020) Hematocrit Auto (Bld) [Volum e fraction]Ordered By: Alfredo Phipps on 06-19-2025 Hematocrit (Bld) [Volume fraction] 39.2 % Low 40-54 [facility] Hemoglobin measurementOrdere d By: Alfredo Phipps on 06-19-2025 Hemoglobin (Bld) [Mass/Vol] 12.8 g/dL Low 13.0-16.5 [facility] Immature granulocytes/100 WB C Auto (Bld)Ordered By: Alfredo Phipps on 06-19-2025 Immature granulocytes/100 WBC (Bld) 0.500 % 0.0-0.9 [facility] Comment on above: IG% - Immature Granu locytes (promyelocytes, myelocytes and metamyelocytes) > 1% indicates that a LEFT SHIFT is Present. Laboratory - Chemistry and C hemistry - challengeOrdered By: Alfredo Phipps on 06-19-2025 AST [Catalytic activity/Vol] 14 U/L <38 [facility] Lithiumon 06-19-2025 LI 0.56 mmol/L Low 0.60-1.20 [facility] Comment on above: Order Comment: 111-2 Performed By: #### L 500.4050, L501.2300, L501.9060, L100.0100 #### [facility] [address] [place], [address] MCV (mean corpuscular volume ) determinationOrdered By: Alfredo Phipps on 06-19-2025 MCV (RBC) [Entitic vol] 91.8 fL 80-94 [facility] Mean corpuscular hemoglobin (MCH) determinationOrdered By: Alfredo Phipps on 06-19-2025 MCH (RBC) [Entitic mass] 30.0 pg 27.0-32.0 [facility] Mean corpuscular hemoglobin concentration (MCHC) determinationOrdered By: Alfredo Phipps on 06-19-2025 MCHC (RBC) [Mass/Vol] 32.7 g/dL 32-36 [facility] Mean platelet volume determi nationOrdered By: Alfredo Phipps on 06-19-2025 Platelet mean volume (Bld) [Entitic vol] 9.5 fL 6.2-12.0 [facility] Monocyte percentageOrdered B y: Alfredo Phipps on 06-19-2025 Monocytes/100 WBC (Bld) 10.7 % High 0-10 [facility] Neutrophil percentageOrdered By: Alfredo Phipps on 06-19-2025 Neutrophils/100 WBC (Bld) 61.7 % 47-70 [facility] Nucleated red blood cell per centageOrdered By: Alfredo Phipps on 06-19-2025 Nucleated RBC/100 WBC (Bld) [Ratio] 0 % 0-5 [facility] Phosphoruson 06-19-2025 Phosphate [Mass/Vol] 4.5 mg/dL Normal 2.7-4.5 [facility] Comment on above: Order Comment: 111-2 Performed By: #### L 500.4050, L501.2300, L501.9060, L100.0100 #### [facility] [address] [place], [address] Platelet countOrdered By: Chan Fiore on 06-19-2025 Platelets (Bld) [#/Vol] 247 10*3/uL 150-450 [facility] Potassium measurement (mass/ volume)Ordered By: Alfredo Phipps on 06-19-2025 Potassium (Unsp spec) [Mass/Vol] 4.3 mmol/L 3.3-5.1 [facility] RBC Auto (Bld) [#/Vol]Ordere d By: Alfredo Phipps on 06-19-2025 RBC (Bld) [#/Vol] 4.27 10*6/uL Low 4.6-6.2 [facility] Serum creatinine measurement (mass/volume)Ordered By: Alfredo Phipps on 06-19-2025 Creatinine [Mass/Vol] 2.26 mg/dL High 0.70-1.20 [facility] Serum globulin measurementOr dered By: Alfredo Phipps on 06-19-2025 Globulin (S) [Mass/Vol] 2.5 g/dL 2.2-4.2 [facility] Serum glucose measurement (m ass/volume)Ordered By: Alfredo Phipps on 06-19-2025 Glucose [Mass/Vol] 122 mg/dL High 70-99 [facility] Serum or plasma alanine sesay otransferase (ALT) measurementOrdered By: Alfredo Phipps on 06-19-2025 ALT [Catalytic activity/Vol] 8 U/L <47 [facility] Serum or plasma albumin you urement (mass/volume)Ordered By: Alfredo Phipps on 06-19-2025 Albumin [Mass/Vol] 3.6 g/dL 3.4-4.8 [facility] Serum or plasma albumin/glob ulin mass ratioOrdered By: Alfredo Phipps on 06-19-2025 Albumin/Globulin [Mass ratio] 1.4 {ratio} 0.9-2.4 [facility] Serum or plasma alkaline hal sphatase measurementOrdered By: Alfredo Phipps on 06-19-2025 ALP [Catalytic activity/Vol] 91 U/L 40-129 [facility] Serum or plasma calcium you urement (mass/volume)Ordered By: Alfredo Phipps on 06-19-2025 Calcium [Mass/Vol] 9.3 mg/dL 7.6-11.0 [facility] Serum or plasma urea nitroge n measurement (mass/volume)Ordered By: Alfredo Phipps on 06-19-2025 Urea nitrogen [Mass/Vol] 26 mg/dL High 4-19 [facility] Sodium levelOrdered By: Raffi Phipps on 06-19-2025 Sodium [Moles/Vol] 137 mmol/L 133-145 [facility] Total proteinOrdered By: Jennifer Phipps on 06-19-2025 Protein [Mass/Vol] 6.1 g/dL 5.9-8.4 [facility] White blood cell (WBC) count Ordered By: Alfredo Phipps on 06-19-2025 WBC (Bld) [#/Vol] 8.7 10*3/uL 4.4-11.0 [facility] EST Glomerular Filtration Ra meredith 06-05-2025 GFR/1.73 sq M.predicted among non-blacks MDRD (S/P/Bld) [Vol rate/Area] 30 mL/min/{1.73_m2} Low >60 [facility] Comment on above: Order Comment: 111-2 [id number] Result Comment: mL/m in/1.73m2 CKD-EPI Creatinine Equation (2020) Performed By: #### L 500.4050, L501.2300, L501.9060, L100.0100 #### [facility] [address] [place], [place], [address] Glomerular filtration rate ( GFR) estimation/1.73 sq m using serum, plasma, or whole bOrdered By: Adam Ferraro on 06-05-2025 GFR/1.73 sq M.predicted among non-blacks MDRD (S/P/Bld) [Vol rate/Area] 30 mL/min/{1.73_m2} Low >60 [facility] Comment on above: mL/min/1.73m2 CKD-EP I Creatinine Equation (2020) Urine Cultureon 05-29-2025 [facility] Mixed Gram Positive Organisms [place] Count 11,000-25,000 [facility] Mixed contaminants. Submit a new specimen if indicated. Normal [facility] Comment on above: Performed By: #### L 500.4050, L501.2300, L501.9060, L100.0100 #### [facility] [address] [place], [place], [address] Absolute lymphocyte countOrd ered By: Adam Ferraro on 05-28-2025 Lymphocytes Auto (Unsp spec) [#/Vol] 2.10 10*3/uL 0.83-4.51 [facility] Absolute neutrophil countOrd ered By: Adam Ferraro on 05-28-2025 Neutrophils (Bld) [#/Vol] 5.2 10*3/uL 2.0-7.7 [facility] Automated lymphocyte count a s percentage of total leukocytesOrdered By: Adam Ferraro on 05-28-2025 Lymphocytes/100 WBC Auto (Unsp spec) 23.5 % 19-41 [facility] Basophil percentageOrdered B y: Adam Ferraro on 05-28-2025 Basophils/100 WBC (Bld) 1.0 % 0-1 [facility] CBC W/Diff, Automatedon 05-14 Absolute Lymph 2.10 X10 3/uL Normal 0.83-4.51 [facility] Comment on above: Order Comment: 20250814 Performed By: #### L 500.4050, L501.2300, L501.9060, L100.0100 #### [facility] [address] [place], [address] Absolute Neut 5.2 X10 3/uL Normal 2.0-7.7 [facility] Comment on above: Order Comment: 20250814 Performed By: #### L 500.4050, L501.2300, L501.9060, L100.0100 #### [facility] [address] [place], [address] Basophils/100 WBC (Bld) 1.0 % Normal 0-1 [facility] Comment on above: Order Comment: 20250814 Performed By: #### L 500.4050, L501.2300, L501.9060, L100.0100 #### [facility] [address] [place], [address] Eosinophils/100 WBC (Bld) 5.5 % High 0-5 [facility] Comment on above: Order Comment: 20250814 Performed By: #### L 500.4050, L501.2300, L501.9060, L100.0100 #### [facility] [address] [place], [address] Erythrocyte distribution width (RBC) [Ratio] 12.5 % Normal 11.6-14.6 [facility] Comment on above: Order Comment: 111-2 [id number] Performed By: #### L 500.4050, L501.2300, L501.9060, L100.0100 #### [facility] [address] [place], [address] Hematocrit (Bld) [Volume fraction] 39.7 % Low 40-54 [facility] Comment on above: Order Comment: 20250814 Performed By: #### L 500.4050, L501.2300, L501.9060, L100.0100 #### [facility] [address] [place], [address] Hemoglobin (Bld) [Mass/Vol] 13.3 g/dL Normal 13.0-16.5 [facility] Comment on above: Order Comment: 20250814 Performed By: #### L 500.4050, L501.2300, L501.9060, L100.0100 #### [facility] [address] [place], [address] IG% 0.700 Normal 0.0-0.9 [facility] Comment on above: Order Comment: 20250814 Result Comment: IG% - Immature Granulocytes (promyelocytes, myelocytes and metamyelocytes) > 1% indicates that a LEFT SHIFT is Present. Performed By: #### L 500.4050, L501.2300, L501.9060, L100.0100 #### [facility] [address] [place], [address] Lymphocytes/100 WBC (Bld) 23.5 % Normal 19-41 [facility] Comment on above: Order Comment: 20250814 Performed By: #### L 500.4050, L501.2300, L501.9060, L100.0100 #### [facility] [address] [place], [address] MCH (RBC) [Entitic mass] 30.2 pg Normal 27.0-32.0 [facility] Comment on above: Order Comment: 20250814 Performed By: #### L 500.4050, L501.2300, L501.9060, L100.0100 #### [facility] [address] [place], [address] MCHC (RBC) [Mass/Vol] 33.5 g/dL Normal 32-36 [facility] Comment on above: Order Comment: 20250814 Performed By: #### L 500.4050, L501.2300, L501.9060, L100.0100 #### [facility] [address] [place], [address] MCV (RBC) [Entitic vol] 90.0 fL Normal 80-94 [facility] Comment on above: Order Comment: 20250814 Performed By: #### L 500.4050, L501.2300, L501.9060, L100.0100 #### [facility] [address] [place], [address] Monocytes/100 WBC (Bld) 11.1 % High 0-10 [facility] Comment on above: Order Comment: 20250814 Performed By: #### L 500.4050, L501.2300, L501.9060, L100.0100 #### [facility] [address] [place], [address] Neutrophils/100 WBC (Bld) 58.2 % Normal 47-70 [facility] Comment on above: Order Comment: 20250814 Performed By: #### L 500.4050, L501.2300, L501.9060, L100.0100 #### [facility] [address] [place], [address] Nucleated RBC (Bld) [#/Vol] 0 10*3/uL Normal 0-5 [facility] Comment on above: Order Comment: [id number] 0100 Performed By: #### L 500.4050, L501.2300, L501.9060, L100.0100 #### [facility] [address] [place], [address] Platelet mean volume (Bld) [Entitic vol] 9.2 fL Normal 6.2-12.0 [facility] Comment on above: Order Comment: [id number] 010 Performed By: #### L 500.4050, L501.2300, L501.9060, L100.0100 #### [facility] [address] [place], [address] Platelets (Bld) [#/Vol] 235 10*3/uL Normal 150-450 [facility] Comment on above: Order Comment: 20250814 Performed By: #### L 500.4050, L501.2300, L501.9060, L100.0100 #### [facility] [address] [place], [address] RBC (Bld) [#/Vol] 4.41 10*6/uL Low 4.6-6.2 [facility] Comment on above: Order Comment: 20250814 Performed By: #### L 500.4050, L501.2300, L501.9060, L100.0100 #### [facility] [address] [place], [address] RDW SD 41.1 fl Normal 35.1-43.9 [facility] Comment on above: Order Comment: [id number] Performed By: #### L 500.4050, L501.2300, L501.9060, L100.0100 #### [facility] [address] [place], [address] WBC (Bld) [#/Vol] 8.9 10*3/uL Normal 4.4-11.0 [facility] Comment on above: Order Comment: 111-2 [id number] Performed By: #### L 500.4050, L501.2300, L501.9060, L100.0100 #### [facility] [address] [place], [address] Eosinophil percentageOrdered By: Adam Ferraro on 05-28-2025 Eosinophils/100 WBC (Bld) 5.5 % High 0-5 [facility] Erythrocyte distribution wid th ratioOrdered By: Adam Ferraro on 05-28-2025 Erythrocyte distribution width (RBC) [Ratio] 12.5 % 11.6-14.6 [facility] Erythrocyte distribution wid th standard deviationOrdered By: Adam Ferraro on 05-28-2025 Erythrocyte distribution width (RBC) [Ratio] 41.1 fl 35.1-43.9 [facility] Hematocrit Auto (Bld) [Volum e fraction]Ordered By: Adam Ferraro on 05-28-2025 Hematocrit (Bld) [Volume fraction] 39.7 % Low 40-54 [facility] Hemoglobin measurementOrdere d By: Adam Ferraro on 05-28-2025 Hemoglobin (Bld) [Mass/Vol] 13.3 g/dL 13.0-16.5 [facility] Immature granulocytes/100 WB C Auto (Bld)Ordered By: Adam Ferraro on 05-28-2025 Immature granulocytes/100 WBC (Bld) 0.700 % 0.0-0.9 [facility] Comment on above: IG% - Immature Granu locytes (promyelocytes, myelocytes and metamyelocytes) > 1% indicates that a LEFT SHIFT is Present. MCV (mean corpuscular volume ) determinationOrdered By: Adam Ferraro on 05-28-2025 MCV (RBC) [Entitic vol] 90.0 fL 80-94 [facility] Mean corpuscular hemoglobin (MCH) determinationOrdered By: Adam Ferraro 05-28-2025 MCH (RBC) [Entitic mass] 30.2 pg 27.0-32.0 [facility] Mean corpuscular hemoglobin concentration (MCHC) determinationOrdered By: Adam Ferraro on 05-28-2025 MCHC (RBC) [Mass/Vol] 33.5 g/dL 32-36 [facility] Mean platelet volume determi nationOrdered By: Adam Ferraro on 05-28-2025 Platelet mean volume (Bld) [Entitic vol] 9.2 fL 6.2-12.0 [facility] Monocyte percentageOrdered B y: Adam Ferraro on 05-28-2025 Monocytes/100 WBC (Bld) 11.1 % High 0-10 [facility] Neutrophil percentageOrdered By: Adam Ferraro on 05-28-2025 Neutrophils/100 WBC (Bld) 58.2 % 47-70 [facility] Nucleated red blood cell per centageOrdered By: Adam Ferraro on 05-28-2025 Nucleated RBC/100 WBC (Bld) [Ratio] 0 % 0-5 [facility] Platelet countOrdered By: Sabino Ferraro on 05-28-2025 Platelets (Bld) [#/Vol] 235 10*3/uL 150-450 [facility] RBC Auto (Bld) [#/Vol]Ordere d By: Adam Ferraro on 05-28-2025 RBC (Bld) [#/Vol] 4.41 10*6/uL Low 4.6-6.2 [facility] White blood cell (WBC) count Ordered By: Adam Ferraro on 05-28-2025 WBC (Bld) [#/Vol] 8.9 10*3/uL 4.4-11.0 [facility] Protein+Creatinine Ratio,Uri neon 05-27-2025 PROT:CRE RATIO 172 mg/g CRE Normal 0-200 [facility] Comment on above: Performed By: #### L 500.4050, L501.2300, L501.9060, L100.0100 #### [facility] [address] [place], [place], [id number] PROTEIN,UR.RAN. < 6.0 Normal 0.0-12.0 [facility] Comment on above: Performed By: #### L 500.4050, L501.2300, L501.9060, L100.0100 #### [facility] [address] [place], [address] UR CREAT 25.50 mg/dL Low 39.00-259.0 0 [facility] Comment on above: Performed By: #### L 500.4050, L501.2300, L501.9060, L100.0100 #### [facility] [address] [place], [address] Uric Acidon 05-27-2025 URIC 6.3 mg/dL Normal 3.5-7.2 [facility] Comment on above: Order Comment: URIC ACID ADDED TO 05/24/25 LABWORK Result Comment: The drugs N-Acetylcysteine and Metamizole may falsely depress this assay. Performed By: #### L 100.0500, L500.4050, L501.1400 #### [facility] [address] [place], [address] Urinalysis, Routine (Dipstic k)on 05-27-2025 BILIRUBIN URINE Negative Normal Negative [facility] Comment on above: Order Comment: [id number] Performed By: #### L 500.4050, L501.2300, L501.9060, L100.0100 #### [facility] [address] [place], [address] Clarity (U) Clear Normal Clear [facility] Comment on above: Order Comment: [id number] Performed By: #### L 500.4050, L501.2300, L501.9060, L100.0100 #### [facility] [address] [place], [address] Color (U) Straw Normal Yellow [facility] Comment on above: Order Comment: [id number] Performed By: #### L 500.4050, L501.2300, L501.9060, L100.0100 #### [facility] [address] [place], [address] GLUCOSE, UR Normal Normal Normal [facility] Comment on above: Order Comment: [id number] Performed By: #### L 500.4050, L501.2300, L501.9060, L100.0100 #### [facility] [address] [place], [address] KETONE UR Negative Normal Negative [facility] Comment on above: Order Comment: [id number] Performed By: #### L 500.4050, L501.2300, L501.9060, L100.0100 #### [facility] [address] [place], [address] LEUK ESTERASE 500 /ul Abnormal Negative [facility] Comment on above: Order Comment: [id number] Performed By: #### L 500.4050, L501.2300, L501.9060, L100.0100 #### [facility] [address] [place], [address] Nitrite Ql (U) Negative Normal Negative [facility] Comment on above: Order Comment: 20250814 Performed By: #### L 500.4050, L501.2300, L501.9060, L100.0100 #### [facility] [address] [place], [address] OCCULT BLOOD-UR Negative Normal Negative [facility] Comment on above: Order Comment: [id number] Performed By: #### L 500.4050, L501.2300, L501.9060, L100.0100 #### [facility] [address] [place], [address] pH UR 6.5 Normal 5.0 - 8.0 [facility] Comment on above: Order Comment: [id number] Performed By: #### L 500.4050, L501.2300, L501.9060, L100.0100 #### [facility] [address] [place], [address] PROT DIPSTX Negative Normal Negative [facility] Comment on above: Order Comment: 20250814 Performed By: #### L 500.4050, L501.2300, L501.9060, L100.0100 #### [facility] [address] [place], [address] SP.GR. DIPSTX 1.005 Normal 1.002-1.030 [facility] Comment on above: Order Comment: [id number] Performed By: #### L 500.4050, L501.2300, L501.9060, L100.0100 #### [facility] [address] [place], [address] UROBILI Normal Normal Normal [facility] Comment on above: Order Comment: [id number] Performed By: #### L 500.4050, L501.2300, L501.9060, L100.0100 #### [facility] [address] [place], [address] Bilirubin Test strip Ql (U)O rdered By: Adam Ferraro on 05-26-2025 Bilirubin Ql (U) Negative Negative [facility] Ketones Test strip Ql (U)Ord ered By: Adam Ferraro on 05-26-2025 Ketones Ql (U) Negative Negative [facility] Nitrite Test strip Ql (U)Ord ered By: Adam Ferraro on 05-26-2025 Nitrite Ql (U) Negative Negative [facility] Protein Test strip Ql (U)Ord ered By: Adam Ferraro on 05-26-2025 Protein Ql (U) Negative Negative [facility] Random urine creatinine you urement (mass/volume)Ordered By: Adam Ferraro on 05-26-2025 Creatinine Unsp time (U) [Mass/Vol] 25.50 mg/dL Low 39.00-259.0 0 [facility] Urine clarityOrdered By: Benoit Ferraro on 05-26-2025 Clarity (U) Clear Clear [facility] Urine color determinationOrd ered By: Adam Ferraro on 05-26-2025 Color (U) Straw Yellow [facility] Urine cultureOrdered By: Benoit Ferraro on 05-26-2025 Bacteria identified Cx Nom (U) Positive Abnormal [facility] Urine glucose detectionOrder ed By: Adam Ferraro on 05-26-2025 Glucose Ql (U) Normal mg/dl Normal [facility] Urine leukocyte esterase det ection by dipstickOrdered By: Adam Ferraro on 05-26-2025 Leukocyte esterase Test strip Ql (U) 500 /ul High Negative [facility] Urine pHOrdered By: Adam Ferraro on 05-26-2025 pH (U) 6.5 [pH] 5.0 - 8.0 [facility] Urine protein measurement (m ass/volume)Ordered By: Adam Ferraro on 05-26-2025 Protein (U) [Mass/Vol] mg/dL 0.0-12.0 [facility] Urine protein/creatinine mas s ratioOrdered By: Adam Ferraro on 05-26-2025 Protein/Creatinine (U) [Mass ratio] 172 mg/g CRE 0-200 [facility] Urine specific gravity measu rementOrdered By: Adam Ferraro on 05-26-2025 Specific gravity (U) [Rel density] 1.005 1.002-1.030 [facility] Urine urobilinogen measureme ntOrdered By: Adam Ferraro on 05-26-2025 Urobilinogen Ql (U) Normal mg/dl Normal [facility] Anion gap in Serum or Plasma Ordered By: Adam Ferraro on 05-24-2025 Anion gap [Moles/Vol] 10 mmol/L 5-15 [facility] BUN/creatinine ratioOrdered By: Adam Ferraro on 05-24-2025 Urea nitrogen/Creatinine [Mass ratio] 11.9 mg/mg 10-20 [facility] Bilirubin, totalOrdered By: Adam Ferraro on 05-24-2025 Bilirubin [Mass/Vol] 0.15 mg/dL 0.00-1.30 [facility] CBC-Complete Blood Cnt No Di ffon 05-24-2025 Erythrocyte distribution width (RBC) [Ratio] 12.7 % Normal 11.6-14.6 [facility] Comment on above: Order Comment: 111.2 Performed By: #### L 100.0500, L500.4050, L501.1400 #### [facility] [address] [place], [address] Hematocrit (Bld) [Volume fraction] 39.2 % Low 40-54 [facility] Comment on above: Order Comment: 111.2 Performed By: #### L 100.0500, L500.4050, L501.1400 #### [facility] [address] [place], [address] Hemoglobin (Bld) [Mass/Vol] 12.9 g/dL Low 13.0-16.5 [facility] Comment on above: Order Comment: 111.2 Performed By: #### L 100.0500, L500.4050, L501.1400 #### [facility] [address] [place], [address] MCH (RBC) [Entitic mass] 30.1 pg Normal 27.0-32.0 [facility] Comment on above: Order Comment: 111.2 Performed By: #### L 100.0500, L500.4050, L501.1400 #### [facility] [address] [place], [address] MCHC (RBC) [Mass/Vol] 32.9 g/dL Normal 32-36 [facility] Comment on above: Order Comment: 111.2 Performed By: #### L 100.0500, L500.4050, L501.1400 #### [facility] [address] [place], [address] MCV (RBC) [Entitic vol] 91.6 fL Normal 80-94 [facility] Comment on above: Order Comment: 111.2 Performed By: #### L 100.0500, L500.4050, L501.1400 #### [facility] [address] [place], [address] Platelet mean volume (Bld) [Entitic vol] 9.2 fL Normal 6.2-12.0 [facility] Comment on above: Order Comment: 111.2 Performed By: #### L 100.0500, L500.4050, L501.1400 #### [facility] [address] [place], [address] Platelets (Bld) [#/Vol] 247 10*3/uL Normal 150-450 [facility] Comment on above: Order Comment: 111.2 Performed By: #### L 100.0500, L500.4050, L501.1400 #### [facility] [address] [place], [address] RBC (Bld) [#/Vol] 4.28 10*6/uL Low 4.6-6.2 [facility] Comment on above: Order Comment: 111.2 Performed By: #### L 100.0500, L500.4050, L501.1400 #### [facility] [address] [place], [address] RDW SD 42.1 fl Normal 35.1-43.9 [facility] Comment on above: Order Comment: 111.2 Performed By: #### L 100.0500, L500.4050, L501.1400 #### [facility] [address] [place], [address] WBC (Bld) [#/Vol] 10.3 10*3/uL Normal 4.4-11.0 [facility] Comment on above: Order Comment: 111.2 Performed By: #### L 100.0500, L500.4050, L501.1400 #### [facility] [address] [place], [address] Carbon dioxide, total [Moles /volume] in Central venous bloodOrdered By: Adam Ferraro on 05-24-2025 CO2 [Moles/Vol] 21.9 mmol/L 21.0-32.0 [facility] Chloride assayOrdered By: Sabino Ferraro on 05-24-2025 Chloride [Moles/Vol] 107 mmol/L 98-108 [facility] Comprehensive Metabolic Prof ilon 05-24-2025 Albumin [Mass/Vol] 3.7 g/dL Normal 3.4-4.8 [facility] Comment on above: Order Comment: 111.2 Performed By: #### L 100.0500, L500.4050, L501.1400 #### [facility] [address] [place], [address] Albumin/Globulin [Mass ratio] 1.6 {ratio} Normal 0.9-2.4 [facility] Comment on above: Order Comment: 111.2 Performed By: #### L 100.0500, L500.4050, L501.1400 #### [facility] [address] [place], [address] ALK PHOS 80 U/L Normal 40-129 [facility] Comment on above: Order Comment: 111.2 Performed By: #### L 100.0500, L500.4050, L501.1400 #### [facility] [address] [place], [address] ALT [Catalytic activity/Vol] 10 U/L Normal <=46 [facility] Comment on above: Order Comment: 111.2 Performed By: #### L 100.0500, L500.4050, L501.1400 #### [facility] [address] [place], [address] AST [Catalytic activity/Vol] 12 U/L Normal <=37 [facility] Comment on above: Order Comment: 111.2 Performed By: #### L 100.0500, L500.4050, L501.1400 #### [facility] [address] [place], [address] Bilirubin [Mass/Vol] 0.15 mg/dL Normal 0.00-1.30 [facility] Comment on above: Order Comment: 111.2 Performed By: #### L 100.0500, L500.4050, L501.1400 #### [facility] [address] [place], [address] BUN/CRE 11.9 RATIO Normal 10-20 [facility] Comment on above: Order Comment: 111.2 Performed By: #### L 100.0500, L500.4050, L501.1400 #### [facility] [address] [place], [address] Calcium [Mass/Vol] 9.2 mg/dL Normal 7.6-11.0 [facility] Comment on above: Order Comment: 111.2 Performed By: #### L 100.0500, L500.4050, L501.1400 #### [facility] [address] [place], [address] Chloride [Moles/Vol] 107 mmol/L Normal 98-108 [facility] Comment on above: Order Comment: 111.2 Performed By: #### L 100.0500, L500.4050, L501.1400 #### [facility] [address] [place], [address] CO2 [Moles/Vol] 21.9 mmol/L Normal 21.0-32.0 [facility] Comment on above: Order Comment: 111.2 Performed By: #### L 100.0500, L500.4050, L501.1400 #### [facility] [address] [place], [address] Creatinine [Mass/Vol] 2.10 mg/dL High 0.70-1.20 [facility] Comment on above: Order Comment: 111.2 Performed By: #### L 100.0500, L500.4050, L501.1400 #### [facility] [address] [place], [address] GAP 10 Normal 5-15 [facility] Comment on above: Order Comment: 111.2 Performed By: #### L 100.0500, L500.4050, L501.1400 #### [facility] [address] [place], [address] GFR/1.73 sq M.predicted among non-blacks MDRD (S/P/Bld) [Vol rate/Area] 35 mL/min/{1.73_m2} Low >60 [facility] Comment on above: Order Comment: 111.2 Result Comment: mL/m in/1.73m2 CKD-EPI Creatinine Equation (2020) Performed By: #### L 100.0500, L500.4050, L501.1400 #### [facility] [address] [place], [address] Globulin (S) [Mass/Vol] 2.3 g/dL Normal 2.2-4.2 [facility] Comment on above: Order Comment: 111.2 Performed By: #### L 100.0500, L500.4050, L501.1400 #### [facility] [address] [place], [address] Glucose [Mass/Vol] 116 mg/dL High 70-99 [facility] Comment on above: Order Comment: 111.2 Performed By: #### L 100.0500, L500.4050, L501.1400 #### [facility] [address] [place], [address] Potassium [Moles/Vol] 4.4 mmol/L Normal 3.3-5.1 [facility] Comment on above: Order Comment: 111.2 Performed By: #### L 100.0500, L500.4050, L501.1400 #### [facility] [address] [place], [address] Sodium [Moles/Vol] 139 mmol/L Normal 133-145 [facility] Comment on above: Order Comment: 111.2 Performed By: #### L 100.0500, L500.4050, L501.1400 #### [facility] [address] [place], [address] T PROT 6.0 g/dL Normal 5.9-8.4 [facility] Comment on above: Order Comment: 111.2 Performed By: #### L 100.0500, L500.4050, L501.1400 #### [facility] [address] [place], [address] Urea nitrogen [Mass/Vol] 25 mg/dL High 4-19 [facility] Comment on above: Order Comment: 111.2 Performed By: #### L 100.0500, L500.4050, L501.1400 #### [facility] [address] [place], [address] Erythrocyte distribution wid th ratioOrdered By: Adam Ferraro on 05-24-2025 Erythrocyte distribution width (RBC) [Ratio] 12.7 % 11.6-14.6 [facility] Erythrocyte distribution wid th standard deviationOrdered By: Adam Ferraro on 05-24-2025 Erythrocyte distribution width (RBC) [Ratio] 42.1 fl 35.1-43.9 [facility] Glomerular filtration rate ( GFR) estimation/1.73 sq m using serum, plasma, or whole bOrdered By: Adam Ferraro on 05-24-2025 GFR/1.73 sq M.predicted among non-blacks MDRD (S/P/Bld) [Vol rate/Area] 35 mL/min/{1.73_m2} Low >60 [facility] Comment on above: mL/min/1.73m2 CKD-EP I Creatinine Equation (2020) Hematocrit Auto (Bld) [Volum e fraction]Ordered By: Adam Ferraro on 05-24-2025 Hematocrit (Bld) [Volume fraction] 39.2 % Low 40-54 [facility] Hemoglobin measurementOrdere d By: Adam Ferraro on 05-24-2025 Hemoglobin (Bld) [Mass/Vol] 12.9 g/dL Low 13.0-16.5 [facility] - Chemistry and C hemistry - challengeOrdered By: Adam Ferraro on 05-24-2025 AST [Catalytic activity/Vol] 12 U/L <38 [facility] MCV (mean corpuscular volume ) determinationOrdered By: Adam Ferraro on 05-24-2025 MCV (RBC) [Entitic vol] 91.6 fL 80-94 [facility] Mean corpuscular hemoglobin (MCH) determinationOrdered By: Adam Ferraro on 05-24-2025 MCH (RBC) [Entitic mass] 30.1 pg 27.0-32.0 [facility] Mean corpuscular hemoglobin concentration (MCHC) determinationOrdered By: Adam Ferraro on 05-24-2025 MCHC (RBC) [Mass/Vol] 32.9 g/dL 32-36 [facility] Mean platelet volume determi nationOrdered By: Adam Ferraro on 05-24-2025 Platelet mean volume (Bld) [Entitic vol] 9.2 fL 6.2-12.0 [facility] Platelet countOrdered By: Sabino Ferraro on 05-24-2025 Platelets (Bld) [#/Vol] 247 10*3/uL 150-450 [facility] Potassium measurement (mass/ volume)Ordered By: Adam Ferraro on 05-24-2025 Potassium (Unsp spec) [Mass/Vol] 4.4 mmol/L 3.3-5.1 [facility] RBC Auto (Bld) [#/Vol]Ordere d By: Adam Ferraro on 05-24-2025 RBC (Bld) [#/Vol] 4.28 10*6/uL Low 4.6-6.2 [facility] Serum creatinine measurement (mass/volume)Ordered By: Adam Ferraro on 05-24-2025 Creatinine [Mass/Vol] 2.10 mg/dL High 0.70-1.20 [facility] Serum globulin measurementOr dered By: Adam Ferraro on 05-24-2025 Globulin (S) [Mass/Vol] 2.3 g/dL 2.2-4.2 [facility] Serum glucose measurement (m ass/volume)Ordered By: Adam Ferraro on 05-24-2025 Glucose [Mass/Vol] 116 mg/dL High 70-99 [facility] Serum or plasma alanine sesay otransferase (ALT) measurementOrdered By: Adam Ferraro on 05-24-2025 ALT [Catalytic activity/Vol] 10 U/L <47 [facility] Serum or plasma albumin you urement (mass/volume)Ordered By: Adam Ferraro on 05-24-2025 Albumin [Mass/Vol] 3.7 g/dL 3.4-4.8 [facility] Serum or plasma albumin/glob ulin mass ratioOrdered By: Adam Ferraro on 05-24-2025 Albumin/Globulin [Mass ratio] 1.6 {ratio} 0.9-2.4 [facility] Serum or plasma alkaline hal sphatase measurementOrdered By: Adam Ferraro on 05-24-2025 ALP [Catalytic activity/Vol] 80 U/L 40-129 [facility] Serum or plasma calcium you urement (mass/volume)Ordered By: Adam Ferraro on 05-24-2025 Calcium [Mass/Vol] 9.2 mg/dL 7.6-11.0 [facility] Serum or plasma urea nitroge n measurement (mass/volume)Ordered By: Adam Ferraro on 05-24-2025 Urea nitrogen [Mass/Vol] 25 mg/dL High 4-19 [facility] Serum or plasma uric acid me asurement (mass/volume)Ordered By: Adam Ferraro on 05-24-2025 Urate [Mass/Vol] 6.3 mg/dL 3.5-7.2 [facility] Comment on above: The drugs N-Acetylcy steine and Metamizole may falsely depress this assay. Sodium levelOrdered By: Spike Ferraro on 05-24-2025 Sodium [Moles/Vol] 139 mmol/L 133-145 [facility] Total proteinOrdered By: Benoit Ferraro on 05-24-2025 Protein [Mass/Vol] 6.0 g/dL 5.9-8.4 [facility] White blood cell (WBC) count Ordered By: Adam Ferraro on 05-24-2025 WBC (Bld) [#/Vol] 10.3 10*3/uL 4.4-11.0 [facility] Lithiumon 05-02-2025 LI 0.53 mmol/L Low 0.60-1.20 [facility] Comment on above: Order Comment: 111-2 Performed By: #### L 500.4050, L501.2300, L501.9060, L100.0100 #### [facility] [address] [place], [place], [address] Serum or plasma uric acid me asurement (mass/volume)Ordered By: Alfredo Phipps on 04-26-2025 Urate [Mass/Vol] 6.3 mg/dL 3.5-7.2 [facility] Comment on above: The drugs N-Acetylcy steine and Metamizole may falsely depress this assay. Uric Acidon 04-26-2025 URIC 6.3 mg/dL Normal 3.5-7.2 [facility] Comment on above: Order Comment: 111-2 Result Comment: The drugs N-Acetylcysteine and Metamizole may falsely depress this assay. Performed By: #### L 501.1400 #### [facility] [address] [place], [place], [address] Absolute lymphocyte countOrd ered By: Adam Ferraro on 04-24-2025 Lymphocytes Auto (Unsp spec) [#/Vol] 2.17 10*3/uL 0.83-4.51 [facility] Absolute neutrophil countOrd ered By: Adam Ferraro on 04-24-2025 Neutrophils (Bld) [#/Vol] 6.4 10*3/uL 2.0-7.7 [facility] Anion gap in Serum or Plasma Ordered By: Adam Ferraro on 04-24-2025 Anion gap [Moles/Vol] 12 mmol/L 5-15 [facility] Automated lymphocyte count a s percentage of total leukocytesOrdered By: Adam Ferraro on 04-24-2025 Lymphocytes/100 WBC Auto (Unsp spec) 21.0 % - [facility] BUN/creatinine ratioOrdered By: Adam Ferraro on 04-24-2025 Urea nitrogen/Creatinine [Mass ratio] 10.5 mg/mg 10-20 [facility] Basophil percentageOrdered B y: Adam Ferraro on 04-24-2025 Basophils/100 WBC (Bld) 1.1 % High 0-1 [facility] Bilirubin, totalOrdered By: Adam Ferraro on 04-24-2025 Bilirubin [Mass/Vol] 0.16 mg/dL 0.00-1.30 [facility] CBC W/Diff, Automatedon 04-14 Absolute Lymph 2.17 X10 3/uL Normal 0.83-4.51 [facility] Comment on above: Order Comment: 111.2 Performed By: #### L 501.2300, L500.4050, L501.9060, L100.0100 #### [facility] [address] [place], [address] Absolute Neut 6.4 X10 3/uL Normal 2.0-7.7 [facility] Comment on above: Order Comment: 111.2 Performed By: #### L 501.2300, L500.4050, L501.9060, L100.0100 #### [facility] [address] [place], [address] Basophils/100 WBC (Bld) 1.1 % High 0-1 [facility] Comment on above: Order Comment: 111.2 Performed By: #### L 501.2300, L500.4050, L501.9060, L100.0100 #### [facility] [address] [place], [address] Eosinophils/100 WBC (Bld) 5.1 % High 0-5 [facility] Comment on above: Order Comment: 111.2 Performed By: #### L 501.2300, L500.4050, L501.9060, L100.0100 #### [facility] [address] [place], [address] Erythrocyte distribution width (RBC) [Ratio] 13.1 % Normal 11.6-14.6 [facility] Comment on above: Order Comment: 111.2 Performed By: #### L 501.2300, L500.4050, L501.9060, L100.0100 #### [facility] [address] [place], [address] Hematocrit (Bld) [Volume fraction] 38.2 % Low 40-54 [facility] Comment on above: Order Comment: 111.2 Performed By: #### L 501.2300, L500.4050, L501.9060, L100.0100 #### [facility] [address] [place], [address] Hemoglobin (Bld) [Mass/Vol] 12.7 g/dL Low 13.0-16.5 [facility] Comment on above: Order Comment: 111.2 Performed By: #### L 501.2300, L500.4050, L501.9060, L100.0100 #### [facility] [address] [place], [address] IG% 0.700 Normal 0.0-0.9 [facility] Comment on above: Order Comment: 111.2 Result Comment: IG% - Immature Granulocytes (promyelocytes, myelocytes and metamyelocytes) > 1% indicates that a LEFT SHIFT is Present. Performed By: #### L 501.2300, L500.4050, L501.9060, L100.0100 #### [facility] [address] [place], [address] Lymphocytes/100 WBC (Bld) 21.0 % Normal 19-41 [facility] Comment on above: Order Comment: 111.2 Performed By: #### L 501.2300, L500.4050, L501.9060, L100.0100 #### [facility] [address] [place], [address] MCH (RBC) [Entitic mass] 30.4 pg Normal 27.0-32.0 [facility] Comment on above: Order Comment: 111.2 Performed By: #### L 501.2300, L500.4050, L501.9060, L100.0100 #### [facility] [address] [place], [address] MCHC (RBC) [Mass/Vol] 33.2 g/dL Normal 32-36 [facility] Comment on above: Order Comment: 111.2 Performed By: #### L 501.2300, L500.4050, L501.9060, L100.0100 #### [facility] [address] [place], [address] MCV (RBC) [Entitic vol] 91.4 fL Normal 80-94 [facility] Comment on above: Order Comment: 111.2 Performed By: #### L 501.2300, L500.4050, L501.9060, L100.0100 #### [facility] [address] [place], [address] Monocytes/100 WBC (Bld) 9.9 % Normal 0-10 [facility] Comment on above: Order Comment: 111.2 Performed By: #### L 501.2300, L500.4050, L501.9060, L100.0100 #### [facility] [address] [place], [address] Neutrophils/100 WBC (Bld) 62.2 % Normal 47-70 [facility] Comment on above: Order Comment: 111.2 Performed By: #### L 501.2300, L500.4050, L501.9060, L100.0100 #### [facility] [address] [place], [address] Nucleated RBC (Bld) [#/Vol] 0 10*3/uL Normal 0-5 [facility] Comment on above: Order Comment: 111.2 Performed By: #### L 501.2300, L500.4050, L501.9060, L100.0100 #### [facility] [address] [place], [address] Platelet mean volume (Bld) [Entitic vol] 9.4 fL Normal 6.2-12.0 [facility] Comment on above: Order Comment: 111.2 Performed By: #### L 501.2300, L500.4050, L501.9060, L100.0100 #### [facility] [address] [place], [address] Platelets (Bld) [#/Vol] 245 10*3/uL Normal 150-450 [facility] Comment on above: Order Comment: 111.2 Performed By: #### L 501.2300, L500.4050, L501.9060, L100.0100 #### [facility] [address] [place], [address] RBC (Bld) [#/Vol] 4.18 10*6/uL Low 4.6-6.2 [facility] Comment on above: Order Comment: 111.2 Performed By: #### L 501.2300, L500.4050, L501.9060, L100.0100 #### [facility] [address] [place], [address] RDW SD 43.9 fl Normal 35.1-43.9 [facility] Comment on above: Order Comment: 111.2 Performed By: #### L 501.2300, L500.4050, L501.9060, L100.0100 #### [facility] [address] [place], [address] WBC (Bld) [#/Vol] 10.3 10*3/uL Normal 4.4-11.0 [facility] Comment on above: Order Comment: 111.2 Performed By: #### L 501.2300, L500.4050, L501.9060, L100.0100 #### [facility] [address] [place], [address] Carbon dioxide, total [Moles /volume] in Central venous bloodOrdered By: Adam Ferraro on 04-24-2025 CO2 [Moles/Vol] 21.9 mmol/L 21.0-32.0 [facility] Chloride assayOrdered By: Sabino Ferraro on 04-24-2025 Chloride [Moles/Vol] 107 mmol/L 98-108 [facility] Comprehensive Metabolic Prof ilon 04-24-2025 Albumin [Mass/Vol] 3.5 g/dL Normal 3.4-4.8 [facility] Comment on above: Order Comment: 111-2 Performed By: #### L 500.4050, L501.2300, L501.9060, L100.0100 #### [facility] [address] [place], [address] Albumin/Globulin [Mass ratio] 1.5 {ratio} Normal 0.9-2.4 [facility] Comment on above: Order Comment: 111-2 Performed By: #### L 500.4050, L501.2300, L501.9060, L100.0100 #### [facility] [address] [place], [address] ALK PHOS 76 U/L Normal 40-129 [facility] Comment on above: Order Comment: 111-2 Performed By: #### L 500.4050, L501.2300, L501.9060, L100.0100 #### [facility] [address] [place], [address] ALT [Catalytic activity/Vol] 11 U/L Normal <=46 [facility] Comment on above: Order Comment: 111-2 Performed By: #### L 500.4050, L501.2300, L501.9060, L100.0100 #### [facility] [address] [place], [address] AST [Catalytic activity/Vol] 16 U/L Normal <=37 [facility] Comment on above: Order Comment: 111-2 Performed By: #### L 500.4050, L501.2300, L501.9060, L100.0100 #### [facility] [address] [place], [address] Bilirubin [Mass/Vol] 0.16 mg/dL Normal 0.00-1.30 [facility] Comment on above: Order Comment: 111-2 Performed By: #### L 500.4050, L501.2300, L501.9060, L100.0100 #### [facility] [address] [place], [address] BUN/CRE 10.5 RATIO Normal 10-20 [facility] Comment on above: Order Comment: 111-2 Performed By: #### L 500.4050, L501.2300, L501.9060, L100.0100 #### [facility] [address] [place], [address] Calcium [Mass/Vol] 9.3 mg/dL Normal 7.6-11.0 [facility] Comment on above: Order Comment: 111-2 Performed By: #### L 500.4050, L501.2300, L501.9060, L100.0100 #### [facility] [address] [place], [address] Chloride [Moles/Vol] 107 mmol/L Normal 98-108 [facility] Comment on above: Order Comment: 111-2 Performed By: #### L 500.4050, L501.2300, L501.9060, L100.0100 #### [facility] [address] [place], [address] CO2 [Moles/Vol] 21.9 mmol/L Normal 21.0-32.0 [facility] Comment on above: Order Comment: 111-2 Performed By: #### L 500.4050, L501.2300, L501.9060, L100.0100 #### [facility] [address] [place], [address] Creatinine [Mass/Vol] 2.41 mg/dL High 0.70-1.20 [facility] Comment on above: Order Comment: 111-2 Performed By: #### L 500.4050, L501.2300, L501.9060, L100.0100 #### [facility] [address] [place], [address] GAP 12 Normal 5-15 [facility] Comment on above: Order Comment: 111-2 Performed By: #### L 500.4050, L501.2300, L501.9060, L100.0100 #### [facility] [address] [place], [address] GFR/1.73 sq M.predicted among non-blacks MDRD (S/P/Bld) [Vol rate/Area] 30 mL/min/{1.73_m2} Low >60 [facility] Comment on above: Order Comment: 111-2 Result Comment: mL/m in/1.73m2 CKD-EPI Creatinine Equation (2020) Performed By: #### L 500.4050, L501.2300, L501.9060, L100.0100 #### [facility] [address] [place], [address] Globulin (S) [Mass/Vol] 2.3 g/dL Normal 2.2-4.2 [facility] Comment on above: Order Comment: 111-2 Performed By: #### L 500.4050, L501.2300, L501.9060, L100.0100 #### [facility] [address] [place], [address] Glucose [Mass/Vol] 123 mg/dL High 70-99 [facility] Comment on above: Order Comment: 111-2 Performed By: #### L 500.4050, L501.2300, L501.9060, L100.0100 #### [facility] [address] [place], [address] Potassium [Moles/Vol] 4.6 mmol/L Normal 3.3-5.1 [facility] Comment on above: Order Comment: 111-2 Performed By: #### L 500.4050, L501.2300, L501.9060, L100.0100 #### [facility] [address] [place], [address] Sodium [Moles/Vol] 140 mmol/L Normal 133-145 [facility] Comment on above: Order Comment: 111-2 Performed By: #### L 500.4050, L501.2300, L501.9060, L100.0100 #### [facility] [address] [place], [address] T PROT 5.9 g/dL Normal 5.9-8.4 [facility] Comment on above: Order Comment: 111-2 Performed By: #### L 500.4050, L501.2300, L501.9060, L100.0100 #### [facility] [address] [place], [address] Urea nitrogen [Mass/Vol] 25 mg/dL High 4-19 [facility] Comment on above: Order Comment: 111-2 Performed By: #### L 500.4050, L501.2300, L501.9060, L100.0100 #### [facility] [address] [place], [address] Eosinophil percentageOrdered By: Adam Ferraro on 04-24-2025 Eosinophils/100 WBC (Bld) 5.1 % High 0-5 [facility] Erythrocyte distribution wid th ratioOrdered By: Adam Ferraro on 04-24-2025 Erythrocyte distribution width (RBC) [Ratio] 13.1 % 11.6-14.6 [facility] Erythrocyte distribution wid th standard deviationOrdered By: Adam Ferraro on 04-24-2025 Erythrocyte distribution width (RBC) [Ratio] 43.9 fl 35.1-43.9 [facility] Glomerular filtration rate ( GFR) estimation/1.73 sq m using serum, plasma, or whole bOrdered By: Adam Ferraro on 04-24-2025 GFR/1.73 sq M.predicted among non-blacks MDRD (S/P/Bld) [Vol rate/Area] 30 mL/min/{1.73_m2} Low >60 [facility] Comment on above: mL/min/1.73m2 CKD-EP I Creatinine Equation (2020) Hematocrit Auto (Bld) [Volum e fraction]Ordered By: Adam Ferraro on 04-24-2025 Hematocrit (Bld) [Volume fraction] 38.2 % Low 40-54 [facility] Hemoglobin measurementOrdere d By: Adam Ferraro on 04-24-2025 Hemoglobin (Bld) [Mass/Vol] 12.7 g/dL Low 13.0-16.5 [facility] Immature granulocytes/100 WB C Auto (Bld)Ordered By: Adam Ferraro on 04-24-2025 Immature granulocytes/100 WBC (Bld) 0.700 % 0.0-0.9 [facility] Comment on above: IG% - Immature Granu locytes (promyelocytes, myelocytes and metamyelocytes) > 1% indicates that a LEFT SHIFT is Present. Laboratory - Chemistry and C hemistry - challengeOrdered By: Adam Ferraro on 04-24-2025 AST [Catalytic activity/Vol] 16 U/L <38 [facility] Lithiumon 04-24-2025 LI 0.60 mmol/L Normal 0.60-1.20 [facility] Comment on above: Order Comment: 111-2 Performed By: #### L 500.4050, L501.2300, L501.9060, L100.0100 #### [facility] [address] [place], [address] MCV (mean corpuscular volume ) determinationOrdered By: Adam Ferraro on 04-24-2025 MCV (RBC) [Entitic vol] 91.4 fL 80-94 [facility] Mean corpuscular hemoglobin (MCH) determinationOrdered By: Adam Ferraro on 04-24-2025 MCH (RBC) [Entitic mass] 30.4 pg 27.0-32.0 [facility] Mean corpuscular hemoglobin concentration (MCHC) determinationOrdered By: Adam Ferraro on 04-24-2025 MCHC (RBC) [Mass/Vol] 33.2 g/dL 32-36 [facility] Mean platelet volume determi nationOrdered By: Adam Ferraro on 04-24-2025 Platelet mean volume (Bld) [Entitic vol] 9.4 fL 6.2-12.0 [facility] Monocyte percentageOrdered B y: Adam Ferraro on 04-24-2025 Monocytes/100 WBC (Bld) 9.9 % 0-10 [facility] Neutrophil percentageOrdered By: Adam Ferraro on 04-24-2025 Neutrophils/100 WBC (Bld) 62.2 % 47-70 [facility] Nucleated red blood cell per centageOrdered By: Adam Ferraro on 04-24-2025 Nucleated RBC/100 WBC (Bld) [Ratio] 0 % 0-5 [facility] Phosphoruson 04-24-2025 Phosphate [Mass/Vol] 4.8 mg/dL High 2.7-4.5 [facility] Comment on above: Order Comment: 111-2 Performed By: #### L 500.4050, L501.2300, L501.9060, L100.0100 #### [facility] [address] [place], [address] Platelet countOrdered By: Sabino Ferraro on 04-24-2025 Platelets (Bld) [#/Vol] 245 10*3/uL 150-450 [facility] Potassium measurement (mass/ volume)Ordered By: Adam Ferraro on 04-24-2025 Potassium (Unsp spec) [Mass/Vol] 4.6 mmol/L 3.3-5.1 [facility] RBC Auto (Bld) [#/Vol]Ordere d By: Adam Ferraro on 04-24-2025 RBC (Bld) [#/Vol] 4.18 10*6/uL Low 4.6-6.2 [facility] Serum creatinine measurement (mass/volume)Ordered By: Adam Ferraro on 04-24-2025 Creatinine [Mass/Vol] 2.41 mg/dL High 0.70-1.20 [facility] Serum globulin measurementOr dered By: Adam Ferraro on 04-24-2025 Globulin (S) [Mass/Vol] 2.3 g/dL 2.2-4.2 [facility] Serum glucose measurement (m ass/volume)Ordered By: Adam Ferraro on 04-24-2025 Glucose [Mass/Vol] 123 mg/dL High 70-99 [facility] Serum or plasma alanine sesay otransferase (ALT) measurementOrdered By: Adam Ferraro on 04-24-2025 ALT [Catalytic activity/Vol] 11 U/L <47 [facility] Serum or plasma albumin you urement (mass/volume)Ordered By: Adam Ferraro on 04-24-2025 Albumin [Mass/Vol] 3.5 g/dL 3.4-4.8 [facility] Serum or plasma albumin/glob ulin mass ratioOrdered By: Adam Ferraro on 04-24-2025 Albumin/Globulin [Mass ratio] 1.5 {ratio} 0.9-2.4 [facility] Serum or plasma alkaline hal sphatase measurementOrdered By: Adam Ferraro on 04-24-2025 ALP [Catalytic activity/Vol] 76 U/L 40-129 [facility] Serum or plasma calcium you urement (mass/volume)Ordered By: Adam Ferraro on 04-24-2025 Calcium [Mass/Vol] 9.3 mg/dL 7.6-11.0 [facility] Serum or plasma urea nitroge n measurement (mass/volume)Ordered By: Adam Ferraro on 04-24-2025 Urea nitrogen [Mass/Vol] 25 mg/dL High 4-19 [facility] Sodium levelOrdered By: Spike Ferraro on 04-24-2025 Sodium [Moles/Vol] 140 mmol/L 133-145 [facility] Total proteinOrdered By: Benoit Ferraro on 04-24-2025 Protein [Mass/Vol] 5.9 g/dL 5.9-8.4 [facility] White blood cell (WBC) count Ordered By: Adam Ferraro on 04-24-2025 WBC (Bld) [#/Vol] 10.3 10*3/uL 4.4-11.0 [facility] Lithiumon 04-01-2025 LI 0.64 mmol/L Normal 0.60-1.20 [facility] Comment on above: Order Comment: 111-2 Performed By: #### L 500.4050, L501.2300, L501.9060, L100.0100 #### [facility] [address] [place], [address] Serum or plasma uric acid me asurement (mass/volume)Ordered By: Alfredo Phipps on 03-27-2025 Urate [Mass/Vol] 6.5 mg/dL 3.5-7.2 [facility] Comment on above: The drugs N-Acetylcy steine and Metamizole may falsely depress this assay. Uric Acidon 03-27-2025 URIC 6.5 mg/dL Normal 3.5-7.2 [facility] Comment on above: Order Comment: 111-2 [id number] Result Comment: The drugs N-Acetylcysteine and Metamizole may falsely depress this assay. Performed By: #### L 500.4050, L501.2300, L501.9060, L100.0100 #### [facility] [address] [place], [address] Microalb:Creat Ratio,Random URon 03-05-2025 Creatinine [Mass/Vol] 72.80 mg/dL Normal 39.00- 259.0 0 [facility] Comment on above: Performed By: #### L 500.4050, L501.2300, L501.9060, L100.0100 #### [facility] [address] [place], [address] MALB:CREAT UNABLE TO CALCULATE Normal [facility] Comment on above: Performed By: #### L 500.4050, L501.2300, L501.9060, L100.0100 #### [facility] [address] [place], [address] MICROALBUMIN,UR < 12.0 Normal NO RANGE EST. [facility] Comment on above: Performed By: #### L 500.4050, L501.2300, L501.9060, L100.0100 #### [facility] [address] [place], [address] Microalbumin/creat ratio urO rdered By: Adam Ferraro on 03-04-2025 Urine microalbumin/creatinine ratio measurement UNABLE TO CALCULATE mg/g CRE [facility] Random urine creatinine you urement (mass/volume)Ordered By: Adam Ferraro on 03-04-2025 Creatinine Unsp time (U) [Mass/Vol] 72.80 mg/dL 39.00-259.0 0 [facility] Urine albumin measurement wi th detection limit of 20 mg/L or less (mass/volume)Ordered By: Adam Ferraro on 03-04-2025 Albumin DL <= 20 mg/L (U) [Mass/Vol] < 12.0 mg/L NO RANGE EST. [facility] Absolute lymphocyte countOrd ered By: Alfredo Phipps on 02-27-2025 Lymphocytes Auto (Unsp spec) [#/Vol] 1.42 10*3/uL 0.83-4.51 [facility] Absolute neutrophil countOrd ered By: Alfredo Phipps on 02-27-2025 Neutrophils (Bld) [#/Vol] 17.7 10*3/uL High 2.0-7.7 [facility] Anion gap in Serum or Plasma Ordered By: Alfredo Phipps on 02-27-2025 Anion gap [Moles/Vol] 12 mmol/L 5-15 [facility] Automated lymphocyte count a s percentage of total leukocytesOrdered By: Alfredo Phipps on 02-27-2025 Lymphocytes/100 WBC Auto (Unsp spec) 6.9 % Low 19-41 [facility] BUN/creatinine ratioOrdered By: Alfredo Phipps on 02-27-2025 Urea nitrogen/Creatinine [Mass ratio] 12.7 mg/mg 10-20 [facility] Basophil percentageOrdered B y: Alfredo Phipps on 02-27-2025 Basophils/100 WBC (Bld) 0.2 % 0-1 [facility] Bilirubin directOrdered By: Alfredo Phipps on 02-27-2025 Bilirubin.direct [Mass/Vol] 0.10 mg/dL 0.00-0.30 [facility] Bilirubin, Directon 02-28-20 25 Bilirubin.direct [Mass/Vol] 0.10 mg/dL Normal 0.00-0.30 [facility] Comment on above: Order Comment: 111. UNKNOWN [id number] Performed By: #### L 501.9060 #### [facility] [address] [place], [address] Bilirubin, totalOrdered By: Alfredo Phipps on 02-27-2025 Bilirubin [Mass/Vol] 0.19 mg/dL 0.00-1.30 [facility] CBC W/Diff, Automatedon 02-12 Absolute Lymph 1.42 X10 3/uL Normal 0.83-4.51 [facility] Comment on above: Order Comment: [id number] Performed By: #### L 500.4050, L501.2300, L501.9060, L100.0100 #### [facility] [address] [place], [address] Absolute Neut 17.7 X10 3/uL High 2.0-7.7 [facility] Comment on above: Order Comment: 20250814 Performed By: #### L 500.4050, L501.2300, L501.9060, L100.0100 #### [facility] [address] [place], [address] Basophils/100 WBC (Bld) 0.2 % Normal 0-1 [facility] Comment on above: Order Comment: 20250814 Performed By: #### L 500.4050, L501.2300, L501.9060, L100.0100 #### [facility] [address] [place], [address] Eosinophils/100 WBC (Bld) 0.0 % Normal 0-5 [facility] Comment on above: Order Comment: 20250814 Performed By: #### L 500.4050, L501.2300, L501.9060, L100.0100 #### [facility] [address] [place], [address] Erythrocyte distribution width (RBC) [Ratio] 13.3 % Normal 11.6-14.6 [facility] Comment on above: Order Comment: 20250814 Performed By: #### L 500.4050, L501.2300, L501.9060, L100.0100 #### [facility] [address] [place], [address] Hematocrit (Bld) [Volume fraction] 39.0 % Low 40-54 [facility] Comment on above: Order Comment: 20250814 Performed By: #### L 500.4050, L501.2300, L501.9060, L100.0100 #### [facility] [address] [place], [address] Hemoglobin (Bld) [Mass/Vol] 13.1 g/dL Normal 13.0-16.5 [facility] Comment on above: Order Comment: 20250814 Performed By: #### L 500.4050, L501.2300, L501.9060, L100.0100 #### [facility] [address] [place], [address] IG% 0.900 Normal 0.0-0.9 [facility] Comment on above: Order Comment: 20250814 Result Comment: IG% - Immature Granulocytes (promyelocytes, myelocytes and metamyelocytes) > 1% indicates that a LEFT SHIFT is Present. Performed By: #### L 500.4050, L501.2300, L501.9060, L100.0100 #### [facility] [address] [place], [address] Lymphocytes/100 WBC (Bld) 6.9 % Low 19-41 [facility] Comment on above: Order Comment: 20250814 Performed By: #### L 500.4050, L501.2300, L501.9060, L100.0100 #### [facility] [address] [place], [address] MCH (RBC) [Entitic mass] 30.1 pg Normal 27.0-32.0 [facility] Comment on above: Order Comment: 20250814 Performed By: #### L 500.4050, L501.2300, L501.9060, L100.0100 #### [facility] [address] [place], [address] MCHC (RBC) [Mass/Vol] 33.6 g/dL Normal 32-36 [facility] Comment on above: Order Comment: 20250814 Performed By: #### L 500.4050, L501.2300, L501.9060, L100.0100 #### [facility] [address] [place], [address] MCV (RBC) [Entitic vol] 89.7 fL Normal 80-94 [facility] Comment on above: Order Comment: 20250814 Performed By: #### L 500.4050, L501.2300, L501.9060, L100.0100 #### [facility] [address] [place], [address] Monocytes/100 WBC (Bld) 6.4 % Normal 0-10 [facility] Comment on above: Order Comment: 20250814 Performed By: #### L 500.4050, L501.2300, L501.9060, L100.0100 #### [facility] [address] [place], [address] Neutrophils/100 WBC (Bld) 85.6 % High 47-70 [facility] Comment on above: Order Comment: 20250814 Performed By: #### L 500.4050, L501.2300, L501.9060, L100.0100 #### [facility] [address] [place], [address] Nucleated RBC (Bld) [#/Vol] 0 10*3/uL Normal 0-5 [facility] Comment on above: Order Comment: 20250814 Performed By: #### L 500.4050, L501.2300, L501.9060, L100.0100 #### [facility] [address] [place], [address] Platelet mean volume (Bld) [Entitic vol] 9.3 fL Normal 6.2-12.0 [facility] Comment on above: Order Comment: 20250814 Performed By: #### L 500.4050, L501.2300, L501.9060, L100.0100 #### [facility] [address] [place], [address] Platelets (Bld) [#/Vol] 274 10*3/uL Normal 150-450 [facility] Comment on above: Order Comment: 20250814 Performed By: #### L 500.4050, L501.2300, L501.9060, L100.0100 #### [facility] [address] [place], [address] RBC (Bld) [#/Vol] 4.35 10*6/uL Low 4.6-6.2 [facility] Comment on above: Order Comment: 20250814 Performed By: #### L 500.4050, L501.2300, L501.9060, L100.0100 #### [facility] [address] [place], [address] RDW SD 43.8 fl Normal 35.1-43.9 [facility] Comment on above: Order Comment: 20250814 Performed By: #### L 500.4050, L501.2300, L501.9060, L100.0100 #### [facility] [address] [place], [address] WBC (Bld) [#/Vol] 20.6 10*3/uL High 4.4-11.0 [facility] Comment on above: Order Comment: 20250814 Performed By: #### L 500.4050, L501.2300, L501.9060, L100.0100 #### [facility] [address] [place], [address] Carbon dioxide, total [Moles /volume] in Central venous bloodOrdered By: Alfredo Phipps on 02-27-2025 CO2 [Moles/Vol] 20.5 mmol/L Low 21.0-32.0 [facility] Chloride assayOrdered By: Chan Fiore on 02-27-2025 Chloride [Moles/Vol] 105 mmol/L 98-108 [facility] Comprehensive Metabolic Prof ilon 02-27-2025 Albumin [Mass/Vol] 3.9 g/dL Normal 3.4-4.8 [facility] Comment on above: Order Comment: 111.2 UNKNOWN [id number] 0000 Performed By: #### L 501.9060 #### [facility] [address] [place], [address] Albumin/Globulin [Mass ratio] 1.6 {ratio} Normal 0.9-2.4 [facility] Comment on above: Order Comment: 111.2 UNKNOWN [id number] 0000 Performed By: #### L 501.9060 #### [facility] [address] [place], [address] ALK PHOS 66 U/L Normal 40-129 [facility] Comment on above: Order Comment: 111.2 UNKNOWN [id number] 0000 Performed By: #### L [id number] #### [facility] [address] [place], [address] ALT [Catalytic activity/Vol] 13 U/L Normal <=46 [facility] Comment on above: Order Comment: 111.2 UNKNOWN [id number] 0000 Performed By: #### L [id number] #### [facility] Laboratory [address] [place], [address] AST [Catalytic activity/Vol] 11 U/L Normal <=37 [facility] Comment on above: Order Comment: 111.2 UNKNOWN 20250701 0000 Performed By: #### L [id number] #### [facility] Laboratory [address] [place], [address] Bilirubin [Mass/Vol] 0.19 mg/dL Normal 0.00-1.30 [facility] Comment on above: Order Comment: 111.2 UNKNOWN [id number] 0000 Performed By: #### L [id number] #### [facility] Laboratory [address] [place], [address] BUN/CRE 12.7 RATIO Normal 10-20 [facility] Comment on above: Order Comment: 111.2 UNKNOWN [id number] 0000 Performed By: #### L [id number] #### [facility] [address] [place], [address] Calcium [Mass/Vol] 9.8 mg/dL Normal 7.6-11.0 [facility] Comment on above: Order Comment: 111.2 UNKNOWN [id number] 0000 Performed By: #### L [id number] #### [facility] [address] [place], [address] Chloride [Moles/Vol] 105 mmol/L Normal 98-108 [facility] Comment on above: Order Comment: 111.2 UNKNOWN [id number] 0000 Performed By: #### L [id number] #### [facility] [address] [place], [address] CO2 [Moles/Vol] 20.5 mmol/L Low 21.0-32.0 [facility] Comment on above: Order Comment: 111.2 UNKNOWN 20250701 0000 Performed By: #### L [id number] #### [facility] [address] [place], [address] Creatinine [Mass/Vol] 2.32 mg/dL High 0.70-1.20 [facility] Comment on above: Order Comment: 111.2 UNKNOWN 20250701 Performed By: #### L [id number] #### [facility] [address] [place], [address] GAP 12 Normal 5-15 [facility] Comment on above: Order Comment: 111.2 UNKNOWN 20250701 Performed By: #### L [id number] #### [facility] [address] [place], [address] GFR/1.73 sq M.predicted among non-blacks MDRD (S/P/Bld) [Vol rate/Area] 31 mL/min/{1.73_m2} Low >60 [facility] Comment on above: Order Comment: 111.2 UNKNOWN 20250701 Result Comment: mL/m in/1.73m2 CKD-EPI Creatinine Equation (2020) Performed By: #### L [id number] #### [facility] [address] [place], [address] Globulin (S) [Mass/Vol] 2.4 g/dL Normal 2.2-4.2 [facility] Comment on above: Order Comment: 111.2 UNKNOWN 20250701 Performed By: #### L [id number] #### [facility] [address] [place], [address] Glucose [Mass/Vol] 134 mg/dL High 70-99 [facility] Comment on above: Order Comment: 111.2 UNKNOWN 20250701 0000 Performed By: #### L [id number] #### [facility] [address] [place], [address] Potassium [Moles/Vol] 4.4 mmol/L Normal 3.3-5.1 [facility] Comment on above: Order Comment: 111.2 UNKNOWN 20250701 0000 Performed By: #### L [id number] #### [facility] [address] [place], [address] Sodium [Moles/Vol] 138 mmol/L Normal 133-145 [facility] Comment on above: Order Comment: 111.2 UNKNOWN 20250701 0000 Performed By: #### L [id number] #### [facility] [address] [place], [address] T PROT 6.2 g/dL Normal 5.9-8.4 [facility] Comment on above: Order Comment: 111.2 UNKNOWN 20250701 0000 Performed By: #### L [id number] #### [facility] [address] [place], [address] Urea nitrogen [Mass/Vol] 29 mg/dL High 4-19 [facility] Comment on above: Order Comment: 111.2 UNKNOWN 20250701 0000 Performed By: #### L [id number] #### [facility] [address] [place], [address] Eosinophil percentageOrdered By: Alfredo Phipps on 02-27-2025 Eosinophils/100 WBC (Bld) 0.0 % 0-5 [facility] Erythrocyte distribution wid th (RBC) [Ratio]Ordered By: Alfredo Phipps on 02-27-2025 Erythrocyte distribution width (RBC) [Entitic vol] 43.8 fL 35.1-43.9 [facility] Erythrocyte distribution wid th ratioOrdered By: Alfredo Phipps on 02-27-2025 Erythrocyte distribution width (RBC) [Ratio] 13.3 % 11.6-14.6 [facility] Erythrocyte distribution wid th standard deviationOrdered By: Alfredo Phipps on 02-27-2025 Erythrocyte distribution width (RBC) [Ratio] 43.8 fl 35.1-43.9 [facility] GFR/1.73 sq M.predicted miles g non-blacks MDRD (S/P/Bld) [Vol rate/Area]Ordered By: Alfredo Phipps on 02-27-2025 Estimated GFR (MDRD) Non-Af Amer 31 Low >60 [facility] Comment on above: mL/min/1.73m2 CKD-EP I Creatinine Equation (2020) Glomerular filtration rate ( GFR) estimation/1.73 sq m using serum, plasma, or whole bOrdered By: Alfredo Phipps on 02-27-2025 GFR/1.73 sq M.predicted among non-blacks MDRD (S/P/Bld) [Vol rate/Area] 31 mL/min/{1.73_m2} Low >60 [facility] Comment on above: mL/min/1.73m2 CKD-EP I Creatinine Equation (2020) Hematocrit Auto (Bld) [Volum e fraction]Ordered By: Alfredo Phipps on 02-27-2025 Hematocrit (Bld) [Volume fraction] 39.0 % Low 40-54 [facility] Hemoglobin measurementOrdere d By: Alfredo Phipps on 02-27-2025 Hemoglobin (Bld) [Mass/Vol] 13.1 g/dL 13.0-16.5 [facility] Immature granulocytes/100 WB C Auto (Bld)Ordered By: Alfredo Phipps on 02-27-2025 Immature granulocytes/100 WBC (Bld) 0.900 % 0.0-0.9 [facility] Comment on above: IG% - Immature Granu locytes (promyelocytes, myelocytes and metamyelocytes) > 1% indicates that a LEFT SHIFT is Present. Laboratory - Chemistry and C hemistry - challengeOrdered By: Alfredo Phipps on 02-27-2025 AST [Catalytic activity/Vol] 11 U/L <38 [facility] Lithiumon 02-27-2025 LI 0.60 mmol/L Normal 0.60-1.20 [facility] Comment on above: Order Comment: 111.2 UNKNOWN [id number] 0000 Performed By: #### L [id number] #### [facility] [place], [address] [place] levelOrdered By: Jennifer Phipps on 02-27-2025 [place] Level 0.60 mmol/L 0.60-1.20 [facility] Lymphocytes Auto (Unsp spec) [#/Vol]Ordered By: Alfredo Phipps on 02-27-2025 Lymphocytes (Bld) [#/Vol] 1.42 10*3/uL 0.83-4.5 1 [facility] Lymphocytes/100 WBC Auto (Un sp spec)Ordered By: Alfredo Phipps on 02-27-2025 Lymphocytes/100 WBC (Bld) 6.9 % Low 19-41 [facility] MCV (mean corpuscular volume ) determinationOrdered By: Alfredo Phipps on 02-27-2025 MCV (RBC) [Entitic vol] 89.7 fL 80-94 [facility] Mean corpuscular hemoglobin (MCH) determinationOrdered By: Alfredo Phipps on 02-27-2025 MCH (RBC) [Entitic mass] 30.1 pg 27.0-32.0 [facility] Mean corpuscular hemoglobin concentration (MCHC) determinationOrdered By: Alfredo Phipps on 02-27-2025 MCHC (RBC) [Mass/Vol] 33.6 g/dL 32-36 [facility] Mean platelet volume determi nationOrdered By: Alfredo Phipps on 02-27-2025 Platelet mean volume (Bld) [Entitic vol] 9.3 fL 6.2-12.0 [facility] Monocyte percentageOrdered B y: Alfredo Phipps on 02-27-2025 Monocytes/100 WBC (Bld) 6.4 % 0-10 [facility] Neutrophil percentageOrdered By: Alfredo Phipps on 02-27-2025 Neutrophils/100 WBC (Bld) 85.6 % High 47-70 [facility] Nucleated red blood cell per centageOrdered By: Alfredo Phipps on 02-27-2025 Nucleated RBC/100 WBC (Bld) [Ratio] 0 % 0-5 [facility] Platelet countOrdered By: Chan Firoe on 02-27-2025 Platelets (Bld) [#/Vol] 274 10*3/uL 150-450 [facility] Potassium (Unsp spec) [Mass/ Vol]Ordered By: Alfredo Phipps on 02-27-2025 Potassium [Moles/Vol] 4.4 mmol/L 3.3-5.1 [facility] Potassium measurement (mass/ volume)Ordered By: Alfredo Phipps on 02-27-2025 Potassium (Unsp spec) [Mass/Vol] 4.4 mmol/L 3.3-5.1 [facility] RBC Auto (Bld) [#/Vol]Ordere d By: Alfredo Phipps on 02-27-2025 RBC (Bld) [#/Vol] 4.35 10*6/uL Low 4.6-6.2 [facility] Serum creatinine measurement (mass/volume)Ordered By: Alfredo Phipps on 02-27-2025 Creatinine [Mass/Vol] 2.32 mg/dL High 0.70-1.20 [facility] Serum globulin measurementOr dered By: Alfredo Phipps on 02-27-2025 Globulin (S) [Mass/Vol] 2.4 g/dL 2.2-4.2 [facility] Serum glucose measurement (m ass/volume)Ordered By: Alfredo Phipps on 02-27-2025 Glucose [Mass/Vol] 134 mg/dL High 70-99 [facility] Serum or plasma alanine sesay otransferase (ALT) measurementOrdered By: Alfredo Phipps on 02-27-2025 ALT [Catalytic activity/Vol] 13 U/L <47 [facility] Serum or plasma albumin you urement (mass/volume)Ordered By: Alfredo Phipps on 02-27-2025 Albumin [Mass/Vol] 3.9 g/dL 3.4-4.8 [facility] Serum or plasma albumin/glob ulin mass ratioOrdered By: Alfredo Phipps on 02-27-2025 Albumin/Globulin [Mass ratio] 1.6 {ratio} 0.9-2.4 [facility] Serum or plasma alkaline hal sphatase measurementOrdered By: Alfredo Phipps on 02-27-2025 ALP [Catalytic activity/Vol] 66 U/L 40-129 [facility] Serum or plasma calcium you urement (mass/volume)Ordered By: Alfredo Phipps on 02-27-2025 Calcium [Mass/Vol] 9.8 mg/dL 7.6-11.0 [facility] Serum or plasma urea nitroge n measurement (mass/volume)Ordered By: Alfredo Phipps on 02-27-2025 Urea nitrogen [Mass/Vol] 29 mg/dL High 4-19 [facility] Sodium levelOrdered By: Raffi Phipps on 02-27-2025 Sodium [Moles/Vol] 138 mmol/L 133-145 [facility] Total proteinOrdered By: Jennifer Phipps on 02-27-2025 Protein [Mass/Vol] 6.2 g/dL 5.9-8.4 [facility] White blood cell (WBC) count Ordered By: Alfredo Phipps on 02-27-2025 WBC (Bld) [#/Vol] 20.6 10*3/uL High 4.4-11.0 [facility] Serum or plasma uric acid me asurement (mass/volume)Ordered By: Adam Ferraro on 02-25-2025 Urate [Mass/Vol] 6.3 mg/dL 3.5-7.2 [facility] Comment on above: The drugs N-Acetylcy steine and Metamizole may falsely depress this assay. Uric Acidon 02-25-2025 URIC 6.3 mg/dL Normal 3.5-7.2 [facility] Comment on above: Order Comment: 111-2 Result Comment: The drugs N-Acetylcysteine and Metamizole may falsely depress this assay. Performed By: #### L [id number], L501.2300, [id number], L100.0100 #### [facility] Laboratory [address] [place], [place], [id number] Calculated very low density lipoprotein (VLDL) cholesterol measurementOrdered By: Alfredo Phipps on 02-11-2025 Calculated very low density lipoprotein (VLDL) cholesterol measurement 43 mg/dL High 5-40 [facility] VLDL Cholesterol 43 mg/dL High 5-40 [facility] LDL calc ser/plasOrdered By: Alfredo Phipps on 02-11-2025 Cholesterol in LDL [Mass/Vol] 67 mg/dL [facility] Comment on above: Ldihyvirxo=950-697 m g/dL & Higher Nihd=459 mg/dL or greater LDL Cholesterol, Calculated 67 mg/dL [facility] Comment on above: Gchnyppnll=438-692 m g/dL & Higher Dgwi=102 mg/dL or greater Lipid Profileon 02-11-2025 CHOL:HDL 4.53 Normal [facility] Comment on above: Order Comment: 111.2 UNKNOWN 20250701 Performed By: #### L [id number] #### [facility] Laboratory [address] [place], [place], [id number] (145) Cholesterol [Mass/Vol] 141 mg/dL Normal <=200 [facility] Comment on above: Order Comment: 111.2 UNKNOWN 20250701 Result Comment: Chol esterol level, Desirable <200 mg/dL Borderline high cholesterol 200-239 mg/dL High cholesterol >=240 mg/dL Recommendations of the NCEP Adult Treatment Panel for the following risk-cutoff thresholds for the [place] population. Performed By: #### L [id number] #### [facility] [address] [place], [place], [id number] (313) Cholesterol in HDL [Mass/Vol] 31 mg/dL Low [facility] Comment on above: Order Comment: 111.2 UNKNOWN 20250701 Result Comment: Fabienne onal Cholesterol Education Program (NCEP) guidelines: <40 mg/dL: Low HDL-cholesterol (major risk factor for CHD) >= 60 mg/dL: High HDL-cholesterol (negative risk factor for CHD) HDL-cholesterol is affected by a number of factors, e.g. smoking, exercise, hormones, sex and age. Performed By: #### L [id number] #### [facility] [address] [place], [place], [id number] (340) Cholesterol in LDL [Mass/Vol] 67 mg/dL Normal [facility] Comment on above: Order Comment: 111.2 UNKNOWN 20250701 Result Comment: Bord flkrwk=560-174 mg/dL Higher Lkoh=599 mg/dL or greater Performed By: #### L [id number] #### [facility] [address] [place], [place], [id number] Cholesterol in VLDL [Mass/Vol] 43 mg/dL High 5-40 [facility] Comment on above: Order Comment: 111.2 UNKNOWN [id number] 0000 Performed By: #### L [id number] #### [facility] [address] [place], [place], [id number] Triglyceride [Mass/Vol] 215 mg/dL High [facility] Comment on above: Order Comment: 111.2 UNKNOWN [id number] 0000 Result Comment: The drugs N-Acetylcysteine and Metamizole may falsely depress this assay. Normal range: <150 mg/dL Borderline High: 150-199 mg/dL High: 200-499 mg/dL Very High: >500 mg/dL Performed By: #### L [id number] #### [facility] [address] [place], [place], [id number] Screening total cholesterol/ high density lipoprotein (HDL) cholesterol ratioOrdered By: Alfredo Phipps on 02-11-2025 Cholesterol.total/Choleste rol in HDL [Mass ratio] 4.53 {ratio} [facility] Serum or plasma cholesterol in HDL measurement (mass/volume)Ordered By: Alfredo Phipps on 02-11-2025 Cholesterol in HDL [Mass/Vol] 31 mg/dL Low >40 [facility] Comment on above: National Cholesterol Education Program (NCEP) guidelines:<40 mg/dL: Low HDL-cholesterol (major risk factor for CHD)>= 60 mg/dL: High HDL-cholesterol (negative risk factor for CHD)HDL-cholesterol is affected by a number of factors, e.g. smoking, exercise, hormones, sex and age. Serum or plasma cholesterol measurement (mass/volume)Ordered By: Alfredo Phipps on 02-11-2025 Cholesterol [Mass/Vol] 141 mg/dL <201 [facility] Comment on above: Cholesterol level, D esirable <200 mg/dLBorderline high cholesterol 200-239 mg/dLHigh cholesterol >=240 mg/dLRecommendations of the NCEP Adult Treatment Panel for the following risk-cutoff thresholds for the [place] population. Triglycerides measurementOrd ered By: Alfredo Phipps on 02-11-2025 Triglyceride [Mass/Vol] 215 mg/dL High <199 [facility] Comment on above: The drugs N-Acetylcy steine and Metamizole may falsely depress this assay. Normal range: <150 mg/dLBorderline High: 150-199 mg/dLHigh: 200-499 mg/dLVery High: >500 mg/dL Hemoglobin A1con 02-06-2025 HbA1c (Bld) [Mass fraction] 5.8 % Normal <=5.6 [facility] Comment on above: Order Comment: 111.2 UNKNOWN [id number] 0000 Performed By: #### L [id number] #### [facility] [address] [place], [place], [address] Hemoglobin A1c percentageOrd ered By: Alfredo Phipps on 02-06-2025 HbA1c (Bld) [Mass fraction] 5.8 % >5.7 [facility] Lithiumon 01-30-2025 LI 0.71 mmol/L Normal 0.60-1.20 [facility] Comment on above: Order Comment: 111-2 Performed By: #### L [id number], L501.2300, L501.9060, L100.0100 #### [facility] [address] [place], [place], [address] [place] levelOrdered By: Benoit Ferraro on 01-30-2025 [place] Level 0.71 mmol/L 0.60-1.20 [facility] Serum or plasma uric acid me asurement (mass/volume)Ordered By: Adam Ferraro on 01-25-2025 Urate [Mass/Vol] 6.2 mg/dL 3.5-7.2 [facility] Comment on above: The drugs N-Acetylcy steine and Metamizole may falsely depress this assay. Uric Acidon 01-25-2025 URIC 6.2 mg/dL Normal 3.5-7.2 [facility] Comment on above: Order Comment: 111-2 Result Comment: The drugs N-Acetylcysteine and Metamizole may falsely depress this assay. Performed By: #### L [id number], L501.2300, L501.9060, L100.0100 #### [facility] [address] [place], [address] Microalb:Creat Ratio,Random URon 01-03-2025 Creatinine [Mass/Vol] 104.00 mg/dL Normal NO RAN GE EST. [facility] Comment on above: Performed By: #### L [id number] #### [facility] [address] [place], [address] MALB:CRE TNP Normal <30 mg/g CRE [facility] Comment on above: Performed By: #### L [id number] #### [facility] [address] [place], [address] MICROALBUMIN,UR < 5.0 Normal NO RANGE EST. [facility] Comment on above: Performed By: #### L [id number] #### [facility] [address] [place], [address] Random urine microalbumin me asurementOrdered By: Adam Ferraro on 01-03-2025 Urine Random Microalbumin < 5.0 mg/L NO RANGE EST. [facility] Urine albumin/creatinine rat io for detection of microalbuminuriaOrdered By: Adam Ferraro on 01-03-2025 Urine Microalbumin/Creatinine Ratio TNP [facility] Comment on above: Test not performed Urine creatinine measurement (mass/volume)Ordered By: Adam Ferraro on 01-03-2025 Creatinine (U) [Mass/Vol] 104.00 mg/dL NO RANGE EST. [facility] Absolute lymphocyte countOrd ered By: Adam Ferraro on 01-02-2025 Lymphocytes Auto (Unsp spec) [#/Vol] 2.41 10*3/uL 0.83-4.51 [facility] Absolute neutrophil countOrd ered By: Adam Ferraro on 01-02-2025 Neutrophils (Bld) [#/Vol] 5.6 10*3/uL 2.0-7.7 [facility] Albumin to globulin ratioOrd ered By: Adam Muñozmele on 01-02-2025 Albumin/Globulin [Mass ratio] 1.0 {ratio} 0.9-2.4 [facility] Automated lymphocyte count a s percentage of total leukocytesOrdered By: Adam Ferraro on 01-02-2025 Lymphocytes/100 WBC Auto (Unsp spec) 25.1 % [facility] Basophil percentageOrdered B y: Adam Ferraro on 01-02-2025 Basophils/100 WBC (Bld) 1.1 % High 0-1 [facility] Bilirubin, totalOrdered By: Adam Ferraro on 01-02-2025 Bilirubin [Mass/Vol] 0.30 mg/dL 0.20-1.00 [facility] Comment on above: For patients on eltr ombopag therapy, use of Dimension [place] TBIL is not recommended. Blood urea nitrogen (BUN)/cr eatinine ratioOrdered By: Adam Ferraro on 01-02-2025 Urea nitrogen/Creatinine [Mass ratio] 12.6 mg/mg 10- [facility] CBC W/Diff, Automatedon 12-15 Absolute Lymph 2.41 X10 3/uL Normal 0.83-4.51 [facility] Comment on above: Order Comment: 111.2 UNKNOWN 20250701 0000 Performed By: #### L [id number] #### [facility] [address] [place], [address] Absolute Neut 5.6 X10 3/uL Normal 2.0-7.7 [facility] Comment on above: Order Comment: 111.2 UNKNOWN [id number] 0000 Performed By: #### L [id number] #### [facility] [address] [place], [address] Basophils/100 WBC (Bld) 1.1 % High 0-1 [facility] Comment on above: Order Comment: 111.2 UNKNOWN [id number] 0000 Performed By: #### L [id number] #### [facility] [address] [place], [address] Eosinophils/100 WBC (Bld) 5.3 % High 0-5 [facility] Comment on above: Order Comment: 111.2 UNKNOWN 20250701 0000 Performed By: #### L [id number] #### [facility] [address] [place], [address] Erythrocyte distribution width (RBC) [Ratio] 12.9 % Normal 11.6-14.6 [facility] Comment on above: Order Comment: 111.2 UNKNOWN 20250701 0000 Performed By: #### L [id number] #### [facility] [address] [place], [address] Hematocrit (Bld) [Volume fraction] 40.5 % Normal 40-54 [facility] Comment on above: Order Comment: 111.2 UNKNOWN 20250701 0000 Performed By: #### L [id number] #### [facility] [address] [place], [address] Hemoglobin (Bld) [Mass/Vol] 13.4 g/dL Normal 13.0-16.5 [facility] Comment on above: Order Comment: 111.2 UNKNOWN 20250701 0000 Performed By: #### L [id number] #### [facility] [address] [place], [address] IG% 0.500 Normal 0.0-0.9 [facility] Comment on above: Order Comment: 111.2 UNKNOWN 20250701 0000 Result Comment: IG% - Immature Granulocytes (promyelocytes, myelocytes and metamyelocytes) > 1% indicates that a LEFT SHIFT is Present. Performed By: #### L [id number] #### [facility] [address] [place], [address] Lymphocytes/100 WBC (Bld) 25.1 % Normal 19-41 [facility] Comment on above: Order Comment: 111.2 UNKNOWN 20250701 0000 Performed By: #### L [id number] #### [facility] [address] [place], [address] MCH (RBC) [Entitic mass] 30.0 pg Normal 27.0-32.0 [facility] Comment on above: Order Comment: 111.2 UNKNOWN [id number] 0000 Performed By: #### L [id number] #### [facility] [address] [place], [address] MCHC (RBC) [Mass/Vol] 33.1 g/dL Normal 32-36 [facility] Comment on above: Order Comment: 111.2 UNKNOWN [id number] 0000 Performed By: #### L [id number] #### [facility] [address] [place], [address] MCV (RBC) [Entitic vol] 90.8 fL Normal 80-94 [facility] Comment on above: Order Comment: 111.2 UNKNOWN 20250701 0000 Performed By: #### L [id number] #### [facility] [address] [place], [address] Monocytes/100 WBC (Bld) 9.4 % Normal 0-10 [facility] Comment on above: Order Comment: 111.2 UNKNOWN 20250701 0000 Performed By: #### L [id number] #### [facility] [address] [place], [address] Neutrophils/100 WBC (Bld) 58.6 % Normal 47-70 [facility] Comment on above: Order Comment: 111.2 UNKNOWN 20250701 0000 Performed By: #### L [id number] #### [facility] [address] [place], [address] Nucleated RBC (Bld) [#/Vol] 0 10*3/uL Normal 0-5 [facility] Comment on above: Order Comment: 111.2 UNKNOWN 20250701 0000 Performed By: #### L [id number] #### [facility] [address] [place], [address] Platelet mean volume (Bld) [Entitic vol] 9.5 fL Normal 6.2-12.0 [facility] Comment on above: Order Comment: 111.2 UNKNOWN 20250701 0000 Performed By: #### L [id number] #### [facility] [address] [place], [address] Platelets (Bld) [#/Vol] 247 10*3/uL Normal 150-450 [facility] Comment on above: Order Comment: 111.2 UNKNOWN 20250701 0000 Performed By: #### L [id number] #### [facility] [address] [place], [address] RBC (Bld) [#/Vol] 4.46 10*6/uL Low 4.6-6.2 [facility] Comment on above: Order Comment: 111.2 UNKNOWN 20250701 0000 Performed By: #### L [id number] #### [facility] [address] [place], [address] RDW SD 41.9 fl Normal 35.1-43.9 [facility] Comment on above: Order Comment: 111.2 UNKNOWN 20250701 0000 Performed By: #### L [id number] #### [facility] [address] [place], [address] WBC (Bld) [#/Vol] 9.6 10*3/uL Normal 4.4-11.0 [facility] Comment on above: Order Comment: 111.2 UNKNOWN 20250701 0000 Performed By: #### L [id number] #### [facility] [address] [place], [address] Carbon dioxide measurementOr dered By: Adam Ferraro on 01-02-2025 CO2 [Moles/Vol] 25.0 mmol/L 21.0-32.0 [facility] Chloride measurementOrdered By: Adam Ferraro on 01-02-2025 Chloride [Moles/Vol] 109 mmol/L High 98-107 [facility] Comprehensive Metabolic Prof ilon 01-02-2025 Albumin [Mass/Vol] 3.1 g/dL Low 3.2-5.0 [facility] Comment on above: Order Comment: 111.2 UNKNOWN [id number] 0000 Performed By: #### L [id number] #### [facility] [address] [place], [address] Albumin/Globulin [Mass ratio] 1.0 {ratio} Normal 0.9-2.4 [facility] Comment on above: Order Comment: 111.2 UNKNOWN 20250701 0000 Performed By: #### L [id number] #### [facility] [address] [place], [address] ALK P 81 U/L Normal 45-117 [facility] Comment on above: Order Comment: 111.2 UNKNOWN [id number] 0000 Performed By: #### L [id number] #### [facility] [address] [place], [address] ALT [Catalytic activity/Vol] 17 U/L Normal 16-61 [facility] Comment on above: Order Comment: 111.2 UNKNOWN 20250701 0000 Performed By: #### L 501.9060 #### [facility] [address] [place], [address] AST [Catalytic activity/Vol] 12 U/L Low 15-37 [facility] Comment on above: Order Comment: 111.2 UNKNOWN [id number] 0000 Performed By: #### L 501.9060 #### [facility] [address] [place], [address] Bilirubin [Mass/Vol] 0.30 mg/dL Normal 0.20-1.00 [facility] Comment on above: Order Comment: 111.2 UNKNOWN [id number] 0000 Result Comment: For patients on eltrombopag therapy, use of Dimension [place] TBIL is not recommended. Performed By: #### L 501.9060 #### [facility] [address] [place], [address] BUN/CRE 12.6 RATIO Normal 10-20 [facility] Comment on above: Order Comment: 111.2 UNKNOWN [id number] 0000 Performed By: #### L 331.7698 #### [facility] [address] [place], [address] CA,Total 9.4 mg/dL Normal 8.5-10.1 [facility] Comment on above: Order Comment: 111.2 UNKNOWN [id number] 0000 Performed By: #### L 927.0980 #### [facility] [address] [place], [address] Chloride [Moles/Vol] 109 mmol/L High 98-107 [facility] Comment on above: Order Comment: 111.2 UNKNOWN [id number] 0000 Performed By: #### L 210.3632 #### [facility] [address] [place], [address] CO2 [Moles/Vol] 25.0 mmol/L Normal 21.0-32.0 [facility] Comment on above: Order Comment: 111.2 UNKNOWN [id number] 0000 Performed By: #### L 994.3476 #### [facility] [address] [place], [address] Creatinine [Mass/Vol] 2.14 mg/dL High 0.70-1.30 [facility] Comment on above: Order Comment: 111.2 UNKNOWN [id number] 0000 Result Comment: The validity of the calculated GFR GFRAA in patients over 70 years has not been determined. Clinical correlation is essential. Performed By: #### L 189.1438 #### [facility] [address] [place], [address] EST GFR - AA 41 mL/min Low >60 [facility] Comment on above: Order Comment: 111.2 UNKNOWN 20250701 0000 Result Comment: Afri can Lithuanian GFR Calc Performed By: #### L 576.1675 #### [facility] [address] [place], [address] GAP 7 Normal 5-15 [facility] Comment on above: Order Comment: 111.2 UNKNOWN [id number] 0000 Performed By: #### L [id number] #### [facility] [address] [place], [address] GFR/1.73 sq M.predicted among non-blacks MDRD (S/P/Bld) [Vol rate/Area] 34 mL/min/{1.73_m2} Low >60 [facility] Comment on above: Order Comment: 111.2 UNKNOWN 20250701 0000 Result Comment: Non- GFR Calc Performed By: #### L 501.9060 #### [facility] [address] [place], [address] Globulin (S) [Mass/Vol] 3.1 g/dL Normal 2.2-4.2 [facility] Comment on above: Order Comment: 111.2 UNKNOWN [id number] 0000 Performed By: #### L [id number] #### [facility] [address] [place], [address] Glucose [Mass/Vol] 115 mg/dL High 74-106 [facility] Comment on above: Order Comment: 111.2 UNKNOWN 20250701 0000 Result Comment: Fast ing Glucose result from 100 to 125 mg/dL suggests IMPAIRED HOMEOSTASIS per A.D.A. criteria. Performed By: #### L [id number] #### [facility] [address] [place], [address] Potassium [Moles/Vol] 4.1 mmol/L Normal 3.5-5.1 [facility] Comment on above: Order Comment: 111.2 UNKNOWN [id number] 0000 Performed By: #### L [id number] #### [facility] [address] [place], [address] Sodium [Moles/Vol] 141 mmol/L Normal 136-145 [facility] Comment on above: Order Comment: 111.2 UNKNOWN [id number] 0000 Performed By: #### L [id number] #### [facility] [address] [place], [place], [address] T PROT 6.2 g/dL Low 6.4-8.2 [facility] Comment on above: Order Comment: 111.2 UNKNOWN [id number] 0000 Performed By: #### L [id number] #### [facility] [address] [place], [address] Urea nitrogen [Mass/Vol] 27 mg/dL High 7-18 [facility] Comment on above: Order Comment: 111.2 UNKNOWN [id number] 0000 Performed By: #### L [id number] #### [facility] [address] [place], [place], [address] Eosinophil percentageOrdered By: Adam Ferraro on 01-02-2025 Eosinophils/100 WBC (Bld) 5.3 % High 0-5 [facility] Erythrocyte distribution wid th ratioOrdered By: Adam Ferraro on 01-02-2025 Erythrocyte distribution width (RBC) [Ratio] 12.9 % 11.6-14.6 [facility] Erythrocyte distribution wid th standard deviationOrdered By: Adam Ferraro on 01-02-2025 Erythrocyte distribution width (RBC) [Entitic vol] 41.9 fL 35.1-43.9 [facility] Erythrocyte distribution width (RBC) [Ratio] 41.9 fl 35.1-43.9 [facility] Estimated glomerular filtrat ion rate (GFR) AmericanOrdered By: Adam Ferraro on 01-02-2025 Estimated GFR (MDRD) Amer 41 mL/min Low >60 [facility] Comment on above: GFR Calc Glomerular filtration rate ( GFR) estimationOrdered By: Adam Ferraro on 01-02-2025 Estimated GFR (MDRD) Non-Af Amer 34 mL/min Low >60 [facility] Comment on above: Non- GFR Calc GFR/1.73 sq M.predicted among non-blacks MDRD (S/P/Bld) [Vol rate/Area] 34 mL/min/{1.73_m2} Low >60 [facility] Comment on above: Non- GFR Calc Glucose measurementOrdered B y: Aadm Jasmine on 01-02-2025 Glucose [Mass/Vol] 115 mg/dL High 74-106 [facility] Comment on above: Fasting Glucose resu lt from 100 to 125 mg/dL suggests IMPAIRED HOMEOSTASIS per A.D.A. criteria. Hematocrit Auto (Bld) [Volum e fraction]Ordered By: Adam Ferraro on 01-02-2025 Hematocrit (Bld) [Volume fraction] 40.5 % 40-54 [facility] Hemoglobin measurementOrdere d By: Adam Ferraro on 01-02-2025 Hemoglobin (Bld) [Mass/Vol] 13.4 g/dL 13.0-16.5 [facility] Immature granulocytes/100 WB C Auto (Bld)Ordered By: Adam Ferraro on 01-02-2025 Immature granulocytes/100 WBC (Bld) 0.500 % 0.0-0.9 [facility] Comment on above: IG% - Immature Granu locytes (promyelocytes, myelocytes and metamyelocytes) > 1% indicates that a LEFT SHIFT is Present. Laboratory - Chemistry and C hemistry - challengeOrdered By: Adam Ferraro on 01-02-2025 AST [Catalytic activity/Vol] 12 U/L Low 15-37 [facility] Lithiumon 01-02-2025 LI 0.60 mmol/L Normal 0.60-1.20 [facility] Comment on above: Order Comment: 111.2 UNKNOWN [id number] 0000 Performed By: #### L [id number] #### [facility] [address] [place], [address] [place] levelOrdered By: Benoit Ferraro on 01-02-2025 [place] Level 0.60 mmol/L 0.60-1.20 [facility] Lymphocytes Auto (Unsp spec) [#/Vol]Ordered By: Adam Ferraro on 01-02-2025 Lymphocytes (Bld) [#/Vol] 2.41 10*3/uL 0.83-4.5 1 [facility] Lymphocytes/100 WBC Auto (Un sp spec)Ordered By: Adam Ferraro on 01-02-2025 Lymphocytes/100 WBC (Bld) 25.1 % 19-41 [facility] MCV (mean corpuscular volume ) determinationOrdered By: Adam Ferraro on 01-02-2025 MCV (RBC) [Entitic vol] 90.8 fL 80-94 [facility] Mean corpuscular hemoglobin (MCH) determinationOrdered By: Adam Ferraro on 01-02-2025 MCH (RBC) [Entitic mass] 30.0 pg 27.0-32.0 [facility] Mean corpuscular hemoglobin concentration (MCHC) determinationOrdered By: Adam Ferraro on 01-02-2025 MCHC (RBC) [Mass/Vol] 33.1 g/dL 32-36 [facility] Mean platelet volume determi nationOrdered By: Adam Ferraro on 01-02-2025 Platelet mean volume (Bld) [Entitic vol] 9.5 fL 6.2-12.0 [facility] Monocyte percentageOrdered B y: Adam Ferraro on 01-02-2025 Monocytes/100 WBC (Bld) 9.4 % 0-10 [facility] Neutrophil percentageOrdered By: Adam Ferraro on 01-02-2025 Neutrophils/100 WBC (Bld) 58.6 % 47-70 [facility] Nucleated red blood cell per centageOrdered By: Adam Ferraro on 01-02-2025 Nucleated RBC/100 WBC (Bld) [Ratio] 0 % 0-5 [facility] Phosphoruson 01-02-2025 Phosphate [Mass/Vol] 4.7 mg/dL Normal 2.5-4.9 [facility] Comment on above: Order Comment: 111.2 UNKNOWN [id number] 0000 Performed By: #### L [id number] #### [facility] [address] [place] [address], [address] Phosphorus measurementOrdere d By: Adam Ferraro on 01-02-2025 Phosphorus Level 4.7 mg/dL 2.5-4.9 [facility] Platelet countOrdered By: Sabino Ferraro on 01-02-2025 Platelets (Bld) [#/Vol] 247 10*3/uL 150-450 [facility] Potassium measurementOrdered By: Adam Ferraro on 01-02-2025 Potassium [Moles/Vol] 4.1 mmol/L 3.5-5.1 [facility] RBC Auto (Bld) [#/Vol]Ordere d By: Adam Ferraro on 01-02-2025 RBC (Bld) [#/Vol] 4.46 10*6/uL Low 4.6-6.2 [facility] Serum anion gap measurementO rdered By: Adam Ferraro on 01-02-2025 Anion gap [Moles/Vol] 7 mmol/L 5-15 [facility] Serum globulin measurementOr dered By: Adam Ferraro on 01-02-2025 Globulin (S) [Mass/Vol] 3.1 g/dL 2.2-4.2 [facility] Serum or plasma alanine sesay otransferase (ALT) measurementOrdered By: Adam Ferraro on 01-02-2025 ALT [Catalytic activity/Vol] 17 U/L 16-61 [facility] Serum or plasma albumin you urement (mass/volume)Ordered By: Adam Ferraro on 01-02-2025 Albumin [Mass/Vol] 3.1 g/dL Low 3.2-5.0 [facility] Serum or plasma alkaline hal sphatase measurementOrdered By: Adam Ferraro on 01-02-2025 ALP [Catalytic activity/Vol] 81 U/L 45-117 [facility] Serum or plasma calcium you urement (mass/volume)Ordered By: Adam Ferraro on 01-02-2025 Calcium [Mass/Vol] 9.4 mg/dL 8.5-10.1 [facility] Serum or plasma creatinine m easurement (mass/volume)Ordered By: Adam Ferraro on 01-02-2025 Creatinine [Mass/Vol] 2.14 mg/dL High 0.70-1.30 [facility] Comment on above: The validity of the calculated GFR & GFRAA in patients over 70 years has not been determined. Clinical correlation is essential. Serum or plasma urea nitroge n measurement (mass/volume)Ordered By: Adam Ferraro on 01-02-2025 Urea nitrogen [Mass/Vol] 27 mg/dL High 7-18 [facility] Sodium levelOrdered By: Spike Ferraro on 01-02-2025 Sodium [Moles/Vol] 141 mmol/L 136-145 [facility] Total proteinOrdered By: Benoit loni Jasmine on 01-02-2025 Protein [Mass/Vol] 6.2 g/dL Low 6.4-8.2 [facility] White blood cell (WBC) count Ordered By: Adam Ferraro on 01-02-2025 WBC (Bld) [#/Vol] 9.6 10*3/uL 4.4-11.0 [facility] Albumin to globulin ratioOrd ered By: Adam Ferraro on 12-28-2024 Albumin/Globulin [Mass ratio] 0.9 {ratio} 0.9-2.4 [facility] Bilirubin, totalOrdered By: Adam Ferraro on 12-28-2024 Bilirubin [Mass/Vol] 0.30 mg/dL 0.20-1.00 [facility] Comment on above: For patients on eltr ombopag therapy, use of Dimension [place] TBIL is not recommended. Blood urea nitrogen (BUN)/cr eatinine ratioOrdered By: Adam Ferraro on 12-28-2024 Urea nitrogen/Creatinine [Mass ratio] 10.0 mg/mg 10-20 [facility] CBC-Complete Blood Cnt No Di ffon 12-28-2024 Erythrocyte distribution width (RBC) [Ratio] 13.1 % Normal 11.6-14.6 [facility] Comment on above: Order Comment: 111.2 Performed By: #### L 100.0500, L500.4050, L501.1400 #### [facility] [address] [place], [address] Hematocrit (Bld) [Volume fraction] 40.4 % Normal 40-54 [facility] Comment on above: Order Comment: 111.2 Performed By: #### L 100.0500, L500.4050, L501.1400 #### [facility] [address] [place], [address] Hemoglobin (Bld) [Mass/Vol] 13.2 g/dL Normal 13.0-16.5 [facility] Comment on above: Order Comment: 111.2 Performed By: #### L 100.0500, L500.4050, L501.1400 #### [facility] [address] [place], [address] MCH (RBC) [Entitic mass] 29.7 pg Normal 27.0-32.0 [facility] Comment on above: Order Comment: 111.2 Performed By: #### L 100.0500, L500.4050, L501.1400 #### [facility] [address] [place], [address] MCHC (RBC) [Mass/Vol] 32.7 g/dL Normal 32-36 [facility] Comment on above: Order Comment: 111.2 Performed By: #### L 100.0500, [id number], L501.1400 #### [facility] [address] [place], [address] MCV (RBC) [Entitic vol] 91.0 fL Normal 80-94 [facility] Comment on above: Order Comment: 111.2 Performed By: #### L 100.0500, L500.4050, L501.1400 #### [facility] [address] [place], [address] Platelet mean volume (Bld) [Entitic vol] 9.3 fL Normal 6.2-12.0 [facility] Comment on above: Order Comment: 111.2 Performed By: #### L 100.0500, L500.4050, L501.1400 #### [facility] [address] [place], [address] Platelets (Bld) [#/Vol] 248 10*3/uL Normal 150-450 [facility] Comment on above: Order Comment: 111.2 Performed By: #### L 100.0500, L500.4050, L501.1400 #### [facility] [address] [place], [address] RBC (Bld) [#/Vol] 4.44 10*6/uL Low 4.6-6.2 [facility] Comment on above: Order Comment: 111.2 Performed By: #### L 100.0500, [id number], L501.1400 #### [facility] [address] [place], [address] RDW SD 42.4 fl Normal 35.1-43.9 [facility] Comment on above: Order Comment: 111.2 Performed By: #### L 100.0500, [id number], L501.1400 #### [facility] [address] [place], [address] WBC (Bld) [#/Vol] 10.5 10*3/uL Normal 4.4-11.0 [facility] Comment on above: Order Comment: 111.2 Performed By: #### L 100.0500, [id number], L501.1400 #### [facility] [address] [place], [address] Carbon dioxide measurementOr dered By: Adam Ferraro on 12-28-2024 CO2 [Moles/Vol] 25.0 mmol/L 21.0-32.0 [facility] Chloride measurementOrdered By: Adam Ferraro on 12-28-2024 Chloride [Moles/Vol] 110 mmol/L High 98-107 [facility] Comprehensive Metabolic Prof ilon 12-28-2024 Albumin [Mass/Vol] 3.0 g/dL Low 3.2-5.0 [facility] Comment on above: Order Comment: 111.2 Performed By: #### L 100.0500, L500.4050, L501.1400 #### [facility] [address] [place], [address] Albumin/Globulin [Mass ratio] 0.9 {ratio} Normal 0.9-2.4 [facility] Comment on above: Order Comment: 111.2 Performed By: #### L 100.0500, [id number], L501.1400 #### [facility] [address] [place], [address] ALK P 81 U/L Normal 45-117 [facility] Comment on above: Order Comment: 111.2 Performed By: #### L 100.0500, [id number], L501.1400 #### [facility] [address] [place], [address] ALT [Catalytic activity/Vol] 20 U/L Normal 16-61 [facility] Comment on above: Order Comment: 111.2 Performed By: #### L 100.0500, [id number], L501.1400 #### [facility] [address] [place], [address] AST [Catalytic activity/Vol] 11 U/L Low 15-37 [facility] Comment on above: Order Comment: 111.2 Performed By: #### L 100.0500, L500.4050, L501.1400 #### [facility] [address] [place], [address] Bilirubin [Mass/Vol] 0.30 mg/dL Normal 0.20-1.00 [facility] Comment on above: Order Comment: 111.2 Result Comment: For patients on eltrombopag therapy, use of Dimension [place] TBIL is not recommended. Performed By: #### L 100.0500, L500.4050, L501.1400 #### [facility] [address] [place], [address] BUN/CRE 10.0 RATIO Normal 10-20 [facility] Comment on above: Order Comment: 111.2 Performed By: #### L 100.0500, [id number], L501.1400 #### [facility] [address] [place], [address] CA,Total 9.3 mg/dL Normal 8.5-10.1 [facility] Comment on above: Order Comment: 111.2 Performed By: #### L 100.0500, [id number], L501.1400 #### [facility] [address] [place], [address] Chloride [Moles/Vol] 110 mmol/L High 98-107 [facility] Comment on above: Order Comment: 111.2 Performed By: #### L 100.0500, [id number], L501.1400 #### [facility] [address] [place], [address] CO2 [Moles/Vol] 25.0 mmol/L Normal 21.0-32.0 [facility] Comment on above: Order Comment: 111.2 Performed By: #### L 100.0500, L500.4050, L501.1400 #### [facility] [address] [place], [address] Creatinine [Mass/Vol] 2.09 mg/dL High 0.70-1.30 [facility] Comment on above: Order Comment: 111.2 Result Comment: The validity of the calculated GFR GFRAA in patients over 70 years has not been determined. Clinical correlation is essential. Performed By: #### L 100.0500, L500.4050, L501.1400 #### [facility] [address] [place], [address] EST GFR - AA 42 mL/min Low >60 [facility] Comment on above: Order Comment: 111.2 Result Comment: Afri can Lithuanian GFR Calc Performed By: #### L 100.0500, L500.4050, L501.1400 #### [facility] [address] [place], [address] GAP 6 Normal 5-15 [facility] Comment on above: Order Comment: 111.2 Performed By: #### L 100.0500, L500.4050, L501.1400 #### [facility] [address] [place], [address] GFR/1.73 sq M.predicted among non-blacks MDRD (S/P/Bld) [Vol rate/Area] 34 mL/min/{1.73_m2} Low >60 [facility] Comment on above: Order Comment: 111.2 Result Comment: Non- GFR Calc Performed By: #### L 100.0500, L500.4050, L501.1400 #### [facility] [address] [place], [address] Globulin (S) [Mass/Vol] 3.4 g/dL Normal 2.2-4.2 [facility] Comment on above: Order Comment: 111.2 Performed By: #### L 100.0500, L500.4050, L501.1400 #### [facility] [address] [place], [address] Glucose [Mass/Vol] 119 mg/dL High 74-106 [facility] Comment on above: Order Comment: 111.2 Result Comment: Fast ing Glucose result from 100 to 125 mg/dL suggests IMPAIRED HOMEOSTASIS per A.D.A. criteria. Performed By: #### L 100.0500, L500.4050, L501.1400 #### [facility] [address] [place], [address] Potassium [Moles/Vol] 4.3 mmol/L Normal 3.5-5.1 [facility] Comment on above: Order Comment: 111.2 Performed By: #### L 100.0500, L500.4050, L501.1400 #### [facility] [address] [place], [address] Sodium [Moles/Vol] 141 mmol/L Normal 136-145 [facility] Comment on above: Order Comment: 111.2 Performed By: #### L 100.0500, L500.4050, L501.1400 #### [facility] [address] [place], [address] T PROT 6.4 g/dL Normal 6.4-8.2 [facility] Comment on above: Order Comment: 111.2 Performed By: #### L 100.0500, L500.4050, L501.1400 #### [facility] [address] [place], [place], [address] Urea nitrogen [Mass/Vol] 21 mg/dL High 7-18 [facility] Comment on above: Order Comment: 111.2 Performed By: #### L 100.0500, L500.4050, L501.1400 #### [facility] [address] [place], [place], [address] Erythrocyte distribution wid th ratioOrdered By: Adam Ferraro on 12-28-2024 Erythrocyte distribution width (RBC) [Ratio] 13.1 % 11.6-14.6 [facility] Erythrocyte distribution wid th standard deviationOrdered By: Adam Ferraro on 12-28-2024 Erythrocyte distribution width (RBC) [Entitic vol] 42.4 fL 35.1-43.9 [facility] Erythrocyte distribution width (RBC) [Ratio] 42.4 fl 35.1-43.9 [facility] Estimated glomerular filtrat ion rate (GFR) AmericanOrdered By: Adam Ferraro on 12-28-2024 Estimated GFR (MDRD) Amer 42 mL/min Low >60 [facility] Comment on above: GFR Calc Glomerular filtration rate ( GFR) estimationOrdered By: Adam Ferraro on 12-28-2024 Estimated GFR (MDRD) Non-Af Amer 34 mL/min Low >60 [facility] Comment on above: Non- GFR Calc GFR/1.73 sq M.predicted among non-blacks MDRD (S/P/Bld) [Vol rate/Area] 34 mL/min/{1.73_m2} Low >60 [facility] Comment on above: Non- GFR Calc Glucose measurementOrdered B y: Adam Ferraro on 12-28-2024 Glucose [Mass/Vol] 119 mg/dL High 74-106 [facility] Comment on above: Fasting Glucose resu lt from 100 to 125 mg/dL suggests IMPAIRED HOMEOSTASIS per A.D.A. criteria. Hematocrit Auto (Bld) [Volum e fraction]Ordered By: Adam Ferraro on 12-28-2024 Hematocrit (Bld) [Volume fraction] 40.4 % 40-54 [facility] Hemoglobin measurementOrdere d By: Adam Ferraro on 12-28-2024 Hemoglobin (Bld) [Mass/Vol] 13.2 g/dL 13.0-16.5 [facility] - Chemistry and C hemistry - challengeOrdered By: Adam Ferraro on 12-28-2024 AST [Catalytic activity/Vol] 11 U/L Low 15-37 [facility] MCV (mean corpuscular volume ) determinationOrdered By: Adam Ferraro on 12-28-2024 MCV (RBC) [Entitic vol] 91.0 fL 80-94 [facility] Mean corpuscular hemoglobin (MCH) determinationOrdered By: Adam Ferraro on 12-28-2024 MCH (RBC) [Entitic mass] 29.7 pg 27.0-32.0 [facility] Mean corpuscular hemoglobin concentration (MCHC) determinationOrdered By: Adam Ferraro on 12-28-2024 MCHC (RBC) [Mass/Vol] 32.7 g/dL 32-36 [facility] Mean platelet volume determi nationOrdered By: Adam Ferraro on 12-28-2024 Platelet mean volume (Bld) [Entitic vol] 9.3 fL 6.2-12.0 [facility] Platelet countOrdered By: Sabino Ferraro on 12-28-2024 Platelets (Bld) [#/Vol] 248 10*3/uL 150-450 [facility] Potassium measurementOrdered By: Adam Ferraro on 12-28-2024 Potassium [Moles/Vol] 4.3 mmol/L 3.5-5.1 [facility] RBC Auto (Bld) [#/Vol]Ordere d By: Adam Ferraro on 12-28-2024 RBC (Bld) [#/Vol] 4.44 10*6/uL Low 4.6-6.2 [facility] Serum anion gap measurementO rdered By: Adam Ferraro on 12-28-2024 Anion gap [Moles/Vol] 6 mmol/L 5-15 [facility] Serum globulin measurementOr dered By: Adam Ferraro on 12-28-2024 Globulin (S) [Mass/Vol]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 suggests IMPAIRED HOMEOSTASIS per A.D.A. criteria. Hemoglobin (Bld) [Mass/Vol] 13.7 g/dL 13.0-16.5 [facility] Monocytes/100 WBC (Bld) 8.4 % 0-10 [facility] Neutrophils (Bld) [#/Vol] 6.3 10*3/uL 2.0-7.7 [facility] Neutrophils/100 WBC (Bld) 65.7 % 47-70 [facility] Potassium [Moles/Vol] 4.2 mmol/L 3.5-5.1 [facility] Sodium [Moles/Vol] 143 mmol/L 136-145 [facility] WBC (Bld) [#/Vol] 9.6 10*3/uL 4.4-11.0 [facility] Determination of erythrocyte mean corpuscular volume (MCV)Ordered By: Alfredo Phipps on 01-06-2024 MCV (RBC) [Entitic vol] 90.1 fL 80-94 [facility] Erythrocyte distribution wid th ratioOrdered By: Alfredo Phipps on 01-06-2024 Erythrocyte distribution width (RBC) [Ratio] 13.2 % 11.6-14.6 [facility] Erythrocyte distribution wid th standard deviationOrdered By: Alfredo Phipps on 01-06-2024 Erythrocyte distribution width (RBC) [Entitic vol] 43.2 fL 35.1-43.9 [facility] Hematocrit Auto (Bld) [Volum e fraction]Ordered By: Alfredo Phipps on 01-06-2024 Hematocrit (Bld) [Volume fraction] 41.7 % 40-54 [facility] Immature granulocytes/100 WB C Auto (Bld)Ordered By: Alfredo Phipps on 01-06-2024 Immature granulocytes/100 WBC (Bld) 0.300 % 0.0-0.9 [facility] Comment on above: IG% - Immature Granu locytes (promyelocytes, myelocytes and metamyelocytes) > 1% indicates that a LEFT SHIFT is Present. Laboratory - Chemistry and C hemistry - challengeOrdered By: Alfredo Phipps on 01-06-2024 CO2 [Moles/Vol] 24.0 mmol/L 21.0-32.0 [facility] Urea nitrogen/Creatinine [Mass ratio] 8.9 mg/mg 10-20 [facility] Laboratory - Hematology and Cell countsOrdered By: Alfredo Phipps on 01-06-2024 MCH (RBC) [Entitic mass] 29.6 pg 27.0-32.0 [facility] MCHC (RBC) [Mass/Vol] 32.9 g/dL 32-36 [facility] Nucleated RBC/100 WBC (Bld) [Ratio] 0 % 0-5 [facility] Platelet mean volume (Bld) [Entitic vol] 9.6 fL 6.2-12.0 [facility] Platelets (Bld) [#/Vol] 209 10*3/uL 150-450 [facility] No Panel InformationOrdered By: Alfredo Phipps on 01-06-2024 Estimated GFR (MDRD) Amer 44 mL/min >60 [facility] Comment on above: GFR Calc Estimated GFR (MDRD) Non-Af Amer 36 mL/min >60 [facility] Comment on above: Non- GFR Calc [place] Level 0.60 mmol/L 0.60-1.20 [facility] RBC Auto (Bld) [#/Vol]Ordere d By: Alfredo Phipps on 01-06-2024 RBC (Bld) [#/Vol] 4.63 10*6/uL 4.6-6.2 [facility] Serum or plasma calcium you urement (mass/volume)Ordered By: Alfredo Phipps on 01-06-2024 Calcium [Mass/Vol] 9.3 mg/dL 8.5-10.1 [facility] Serum or plasma creatinine m easurement (mass/volume)Ordered By: Alfredo Phipps on 01-06-2024 Creatinine [Mass/Vol] 2.02 mg/dL 0.70-1.30 [facility] Comment on above: The validity of the calculated GFR & GFRAA in patients over 70 years has not been determined. Clinical correlation is essential. Serum or plasma urea nitroge n measurement (mass/volume)Ordered By: Alfredo Phipps on 01-06-2024 Urea nitrogen [Mass/Vol] 18 mg/dL 7-18 [facility] Thin prep Papanicolaou smear with manual screeningOrdered By: Alfredo Phipps on 01-06-2024 Thin prep Papanicolaou smear with manual screening 3.3 g/dL 3.2-5.0 [facility] Protein (U) [Mass/Vol] 19.0 mg/dL 0.0-11.8 [facility] Urine creatinine measurement (mass/volume)Ordered By: Alfredo Phipps on 01-06-2024 Creatinine (U) [Mass/Vol] 122.00 mg/dL NO RANGE EST. [facility] Urine protein/creatinine mas s ratioOrdered By: Alfredo Phipps on 01-06-2024 Protein/Creatinine (U) [Mass ratio] 156 mg/g CRE 0-200 [facility] CBC W Auto Differential pane l (Bld)on 12-20-2023 Basophils (Bld) [#/Vol] 0.11 10*3/uL High <0.11 k/uL [facility] Basophils/100 WBC (Bld) 1.0 % [facility] Differential cell count method Nom (Bld) Auto [facility] Eosinophils (Bld) [#/Vol] 0.31 10*3/uL <0.46 k/ uL [facility] Eosinophils/100 WBC (Bld) 2.8 % [facility] Erythrocyte distribution width (RBC) [Ratio] 12.9 % 11.5 - 15.0 % [facility] Hematocrit (Bld) [Volume fraction] 46.0 % 39.0 - 51.0 % [facility] Hemoglobin (Bld) [Mass/Vol] 15.2 g/dL 13.0 - 17.0 g/dL [facility] Immature granulocytes (Bld) [#/Vol] 0.06 10*3/uL <0.10 k/uL [facility] Immature granulocytes/100 WBC (Bld) 0.5 % [facility] Lymphocytes (Bld) [#/Vol] 1.82 10*3/uL 1. 00 - 4.00 k/uL [facility] Lymphocytes/100 WBC (Bld) 16.5 % [facility] MCH (RBC) [Entitic mass] 28.9 pg 26. 0 - 34.0 pg [facility] MCHC (RBC) [Mass/Vol] 33.0 g/dL 30.5 - 36.0 g/dL [facility] MCV (RBC) [Entitic vol] 87.5 fL 80.0 - 100.0 fL [facility] Monocytes (Bld) [#/Vol] 0.88 10*3/uL High <0.87 k/uL [facility] Monocytes/100 WBC (Bld) 8.0 % [facility] Neutrophils (Bld) [#/Vol] 7.82 10*3/uL High 1. 45 - 7.50 k/uL [facility] Neutrophils/100 WBC (Bld) 71.2 % [facility] Nucleated RBC (Bld) [#/Vol] <0.01 k/uL [facility] Nucleated RBC/100 WBC (Bld) [Ratio] 0.0 /100 WBC [facility] Platelet mean volume (Bld) [Entitic vol] 9.4 fL 9.0 - 12.7 fL [facility] Platelets (Bld) [#/Vol] 247 10*3/uL 150 - 400 k/uL [facility] RBC (Bld) [#/Vol] 5.26 10*6/uL 4.20 - 6.0 0 m/uL [facility] WBC (Bld) [#/Vol] 11.00 10*3/uL 3.70 - 11.00 k/uL [facility] CYSTATIN Con 12-20-2023 Cystatin C [Mass/Vol] 1.87 mg/L High 0.61 - 0.95 mg/L [facility] Cystatin C eGFR 34 mL/min/1.73m Low >=60 mL/min/1.73 m [facility] Comprehensive metabolic 2000 panelon 12-20-2023 Albumin [Mass/Vol] 4.2 g/dL 3.9 - 4.9 g/dL [facility] ALP [Catalytic activity/Vol] 105 U/L 38 - 113 U/L [facility] ALT [Catalytic activity/Vol] 31 U/L 10 - 54 U/L [facility] Anion gap [Moles/Vol] 15 mmol/L 9 - 18 mmol/L [facility] AST [Catalytic activity/Vol] 19 U/L 14 - 40 U/L [facility] Bilirubin [Mass/Vol] 0.3 mg/dL 0.2 - 1 .3 mg/dL [facility] Calcium [Mass/Vol] 10.2 mg/dL 8.5 - 10. 2 mg/dL [facility] Chloride [Moles/Vol] 103 mmol/L 97 - 10 5 mmol/L [facility] CO2 [Moles/Vol] 24 mmol/L 22 - 30 mmol/L [facility] Creatinine [Mass/Vol] 2.22 mg/dL High 0.73 - 1.22 mg/dL [facility] Estimated Glomerular Filtration Rate 33 mL/min/1.73m Low >=60 mL/min/1.73 m [facility] Glucose [Mass/Vol] 114 mg/dL High 74 - 99 mg/dL [facility] Potassium [Moles/Vol] 4.2 mmol/L 3.7 - 5.1 mmol/L [facility] Protein [Mass/Vol] 7.0 g/dL 6.3 - 8.0 g/dL [facility] Sodium [Moles/Vol] 142 mmol/L 136 - 144 mmol/L [facility] Urea nitrogen [Mass/Vol] 19 mg/dL 9 - 24 mg/dL [facility] LIPID PANEL, NONFASTINGon Cholesterol [Mass/Vol] 139 mg/dL <200 mg/dL [facility] HDL Cholesterol, Nonfasting 32 mg/dL Low >39 mg/dL [facility] LDL Cholesterol, Nonfasting 51 mg/dL <100 mg/dL [facility] LDL/HDL Ratio, Nonfasting 1.59 mg/dL <2.54 mg/d L [facility] Non HDL Cholesterol, Nonfasting 107 mg/dL <130 mg/dL [facility] Total Chol/HDL Ratio, Nonfasting 4.34 mg/dL <5.10 mg/dL [facility] Triglycerides, Nonfasting 280 mg/dL High <150 mg/dL [facility] VLDL Cholesterol, Nonfasting 56 mg/dL High <30 mg/dL [facility] PHOSPHORUS INORGANICon 12-20 Phosphate [Mass/Vol] 2.1 mg/dL Low 2.7 - 4 .8 mg/dL [facility] PROTEIN CREATININE RATIOon 0 12-20-2023 Protein/Creatinine (U) [Mass ratio] 0.07 mg/mg <0.15 mg/mg [facility] PTH INTACT BLDon 12-20-2023 Parathyrin.intact [Mass/Vol] 121 pg/mL High 15 - 65 pg/mL [facility] Protein/Creatinine (U) [Mass ratio]on 12-20-2023 Creatinine (U) [Mass/Vol] 103.8 mg/dL 20 .0 - 300.0 mg/dL [facility] Protein (U) [Mass/Vol] 7 mg/dL 0 - 2 0 mg/dL [facility] URINALYSIS, REFLEX MICROSCOP ICon 12-20-2023 Bilirubin Ql (U) Negative Negative [facility] Clarity (Unsp spec) Clear Clear [facility] Color (U) Light Yellow Yellow [facility] Glucose Test strip (U) [Mass/Vol] Negative Trace, Negative [facility] Hemoglobin Ql (U) Negative Negative, Trace [facility] Ketones Ql (U) Negative Negative, Trace [facility] Leukocyte esterase Test strip Ql (U) Negative Negative, 25 Mary/uL [facility] Nitrite Ql (U) Negative Negative [facility] pH (U) 6.0 [pH] 5.0 - 8.0 [facility] Protein (U) [Mass/Vol] Negative Trace , Negative [facility] Specific gravity (U) [Rel density] 1.010 1.005 - 1.030 [facility] Urobilinogen Ql (U) Normal Normal [facility] Absolute lymphocyte countOrd ered By: Alfredo Phipps on 12-09-2023 Lymphocytes Auto (Unsp spec) [#/Vol] 2.24 10*3/uL 0.83-4.51 [facility] Automated lymphocyte count a s percentage of total leukocytesOrdered By: Alfredo Phipps on 12-09-2023 Lymphocytes/100 WBC Auto (Unsp spec) 23.2 % 19-41 [facility] Basophil percentageOrdered B y: Alfredo Phipps on 12-09-2023 Basophil percentage 3.8 mg/dL 2.5-4.9 [facility] Basophils/100 WBC (Bld) 1.0 % 0-1 [facility] Chloride [Moles/Vol] 110 mmol/L 98-107 [facility] Eosinophils/100 WBC (Bld) 3.9 % 0-5 [facility] Glucose [Mass/Vol] 129 mg/dL 74-106 [facility] Comment on above: Fasting Glucose resu lt greater than or equal to 126 mg/dL suggests DIABETES MELLITUS per A.D.A. criteria. Hemoglobin (Bld) [Mass/Vol] 13.9 g/dL 13.0-16.5 [facility] Monocytes/100 WBC (Bld) 9.3 % 0-10 [facility] Neutrophils (Bld) [#/Vol] 6.0 10*3/uL 2.0-7.7 [facility] Neutrophils/100 WBC (Bld) 62.2 % 47-70 [facility] Potassium [Moles/Vol] 3.5 mmol/L 3.5-5.1 [facility] Sodium [Moles/Vol] 138 mmol/L 136-145 [facility] WBC (Bld) [#/Vol] 9.7 10*3/uL 4.4-11.0 [facility] Determination of erythrocyte mean corpuscular volume (MCV)Ordered By: Alfredo Phipps on 12-09-2023 MCV (RBC) [Entitic vol] 90.2 fL 80-94 [facility] Erythrocyte distribution wid th ratioOrdered By: Alfredo Phipps on 12-09-2023 Erythrocyte distribution width (RBC) [Ratio] 13.1 % 11.6-14.6 [facility] Erythrocyte distribution wid th standard deviationOrdered By: Alfredo Phipps on 12-09-2023 Erythrocyte distribution width (RBC) [Entitic vol] 43.2 fL 35.1-43.9 [facility] Hematocrit Auto (Bld) [Volum e fraction]Ordered By: Alfredo Phipps on 12-09-2023 Hematocrit (Bld) [Volume fraction] 43.2 % 40-54 [facility] Immature granulocytes/100 WB C Auto (Bld)Ordered By: Alfredo Phipps on 12-09-2023 Immature granulocytes/100 WBC (Bld) 0.400 % 0.0-0.9 [facility] Comment on above: IG% - Immature Granu locytes (promyelocytes, myelocytes and metamyelocytes) > 1% indicates that a LEFT SHIFT is Present. Laboratory - Chemistry and C hemistry - challengeOrdered By: Alfredo Phipps on 12-09-2023 CO2 [Moles/Vol] 21.0 mmol/L 21.0-32.0 [facility] Urea nitrogen/Creatinine [Mass ratio] 7.4 mg/mg 10-20 [facility] Laboratory - Hematology and Cell countsOrdered By: Alfredo Phipps on 12-09-2023 MCH (RBC) [Entitic mass] 29.0 pg 27.0-32.0 [facility] MCHC (RBC) [Mass/Vol] 32.2 g/dL 32-36 [facility] Nucleated RBC/100 WBC (Bld) [Ratio] 0 % 0-5 [facility] Platelets (Bld) [#/Vol] 235 10*3/uL 150-450 [facility] No Panel InformationOrdered By: Alfredo Phipps on 12-09-2023 Estimated GFR (MDRD) Amer 44 mL/min >60 [facility] Comment on above: GFR Calc Estimated GFR (MDRD) Non-Af Amer 36 mL/min >60 [facility] Comment on above: Non- GFR Calc [place] Level 0.40 mmol/L 0.60-1.20 [facility] Platelet mean volume Naresh-Ec ker (Bld) [Entitic vol]Ordered By: Alfredo Phipps on 12-09-2023 Platelet mean volume (Bld) [Entitic vol] 9.5 fL 6.2-12.0 [facility] RBC Auto (Bld) [#/Vol]Ordere d By: Alfredo Phipps on 12-09-2023 RBC (Bld) [#/Vol] 4.79 10*6/uL 4.6-6.2 [facility] Serum or plasma calcium you urement (mass/volume)Ordered By: Alfredo Phipps on 12-09-2023 Calcium [Mass/Vol] 9.3 mg/dL 8.5-10.1 [facility] Serum or plasma creatinine m easurement (mass/volume)Ordered By: Alfredo Phipps on 12-09-2023 Creatinine [Mass/Vol] 2.02 mg/dL 0.70-1.30 [facility] Comment on above: The validity of the calculated GFR & GFRAA in patients over 70 years has not been determined. Clinical correlation is essential. Serum or plasma urea nitroge n measurement (mass/volume)Ordered By: Alfredo Phipps on 12-09-2023 Urea nitrogen [Mass/Vol] 15 mg/dL 7-18 [facility] Thin prep Papanicolaou smear with manual screeningOrdered By: Alfredo Phipps on 12-09-2023 Thin prep Papanicolaou smear with manual screening 3.2 g/dL 3.2-5.0 [facility] Urine creatinine measurement (mass/volume)Ordered By: Adam Ferraro on 11-16-2023 Creatinine (U) [Mass/Vol] 178.00 mg/dL NO RANGE EST. [facility] Urine protein measurement (m ass/volume)Ordered By: Adam Ferraro on 11-16-2023 Protein (U) [Mass/Vol] 28.7 mg/dL 0.0-11.8 [facility] Urine protein/creatinine mas s ratioOrdered By: Adam Ferraro on 11-16-2023 Protein/Creatinine (U) [Mass ratio] 161 mg/g CRE 0-200 [facility] Absolute lymphocyte countOrd ered By: Adam Ferraro on 11-11-2023 Lymphocytes Auto (Unsp spec) [#/Vol] 3.10 10*3/uL 0.83-4.51 [facility] Basophil percentageOrdered B y: Adam Ferraro on 11-11-2023 Basophil percentage 3.6 mg/dL 2.5-4.9 [facility] Basophils/100 WBC (Bld) 0.8 % 0-1 [facility] Chloride [Moles/Vol] 108 mmol/L 98-107 [facility] Eosinophils/100 WBC (Bld) 3.4 % 0-5 [facility] Glucose [Mass/Vol] 120 mg/dL 74-106 [facility] Comment on above: Fasting Glucose resu lt from 100 to 125 mg/dL suggests IMPAIRED HOMEOSTASIS per A.D.A. criteria. Neutrophils (Bld) [#/Vol] 7.1 10*3/uL 2.0-7.7 [facility] Neutrophils/100 WBC (Bld) 61.0 % 47-70 [facility] Potassium [Moles/Vol] 3.6 mmol/L 3.5-5.1 [facility] Sodium [Moles/Vol] 140 mmol/L 136-145 [facility] WBC (Bld) [#/Vol] 11.6 10*3/uL 4.4-11.0 [facility] Blood erythrocytes count (nu mber/volume)Ordered By: Adam Ferraro on 11-11-2023 RBC (Bld) [#/Vol] 4.98 10*6/uL 4.6-6.2 [facility] Blood hemoglobin measurement (mass/volume)Ordered By: Adam Ferraro on 11-11-2023 Hemoglobin (Bld) [Mass/Vol] 14.4 g/dL 13.0-16.5 [facility] Blood lymphocytes/100 leukoc ytesOrdered By: Adam Ferraro on 11-11-2023 Lymphocytes/100 WBC (Bld) 26.7 % 19-41 [facility] Blood monocytes/100 leukocyt esOrdered By: Adam Ferraro on 11-11-2023 Monocytes/100 WBC (Bld) 7.3 % 0-10 [facility] Blood platelet mean volumeOr dered By: Adam Ferraro on 11-11-2023 Platelet mean volume (Bld) [Entitic vol] 9.4 fL 6.2-12.0 [facility] Determination of erythrocyte mean corpuscular volume (MCV)Ordered By: dAam Ferraro on 11-11-2023 MCV (RBC) [Entitic vol] 89.8 fL 80-94 [facility] Hematocrit Auto (Bld) [Volum e fraction]Ordered By: Adam Ferraro on 11-11-2023 Hematocrit (Bld) [Volume fraction] 44.7 % 40-54 [facility] Laboratory - Chemistry and C hemistry - challengeOrdered By: Adam Ferraro on 11-11-2023 CO2 [Moles/Vol] 24.0 mmol/L 21.0-32.0 [facility] Urea nitrogen/Creatinine [Mass ratio] 7.8 mg/mg 10-20 [facility] Laboratory - Hematology and Cell countsOrdered By: Adam Ferraro on 11-11-2023 Erythrocyte distribution width (RBC) [Entitic vol] 42.7 fL 35.1-43.9 [facility] Erythrocyte distribution width (RBC) [Ratio] 13.1 % 11.6-14.6 [facility] Immature granulocytes/100 WBC (Bld) 0.800 % 0.0-0.9 [facility] Comment on above: IG% - Immature Granu locytes (promyelocytes, myelocytes and metamyelocytes) > 1% indicates that a LEFT SHIFT is Present. MCH (RBC) [Entitic mass] 28.9 pg 27.0-32.0 [facility] Nucleated RBC/100 WBC (Bld) [Ratio] 0 % 0-5 [facility] MCHC Auto (RBC) [Mass/Vol]Or dered By: Adam Ferraro on 11-11-2023 MCHC (RBC) [Mass/Vol] 32.2 g/dL 32-36 [facility] No Panel InformationOrdered By: Adam Ferraro on 11-11-2023 Estimated GFR (MDRD) Amer 37 mL/min >60 [facility] Comment on above: GFR Calc Estimated GFR (MDRD) Non-Af Amer 31 mL/min >60 [facility] Comment on above: Non- GFR Calc [place] Level 0.60 mmol/L 0.60-1.20 [facility] Platelets bldOrdered By: Benoit Ferraro on 11-11-2023 Platelets (Bld) [#/Vol] 252 10*3/uL 150-450 [facility] Serum or plasma albumin you urement (mass/volume)Ordered By: Adam Ferraro on 11-11-2023 Albumin [Mass/Vol] 3.1 g/dL 3.2-5.0 [facility] Serum or plasma calcium you urement (mass/volume)Ordered By: Adam Ferraro on 11-11-2023 Calcium [Mass/Vol] 8.9 mg/dL 8.5-10.1 [facility] Serum or plasma creatinine m easurement (mass/volume)Ordered By: Adam Ferraro on 11-11-2023 Creatinine [Mass/Vol] 2.31 mg/dL 0.70-1.30 [facility] Comment on above: The validity of the calculated GFR & GFRAA in patients over 70 years has not been determined. Clinical correlation is essential. Serum or plasma urea nitroge n measurement (mass/volume)Ordered By: Adam Ferraro on 11-11-2023 Urea nitrogen [Mass/Vol] 18 mg/dL 7-18 [facility] Serum or plasma uric acid me asurement (mass/volume)Ordered By: Adam Ferraro on 10-27-2023 Urate [Mass/Vol] 8.1 mg/dL 3.5-7.2 [facility] Comment on above: The drugs N-Acetylcy steine and Metamizole may falsely depress this assay. Absolute lymphocyte countOrd ered By: lAfredo Phipps on 10-14-2023 Lymphocytes Auto (Unsp spec) [#/Vol] 1.52 10*3/uL 0.83-4.51 [facility] Basophil percentageOrdered B y: Alfredo Phipps on 10-14-2023 Basophil percentage 3.2 mg/dL 2.5-4.9 [facility] Basophils/100 WBC (Bld) 1.2 % 0-1 [facility] Chloride [Moles/Vol] 110 mmol/L 98-107 [facility] Eosinophils/100 WBC (Bld) 5.0 % 0-5 [facility] Glucose [Mass/Vol] 151 mg/dL 74-106 [facility] Comment on above: Fasting Glucose resu lt greater than or equal to 126 mg/dL suggests DIABETES MELLITUS per A.D.A. criteria. Neutrophils (Bld) [#/Vol] 6.6 10*3/uL 2.0-7.7 [facility] Neutrophils/100 WBC (Bld) 68.8 % 47-70 [facility] Potassium [Moles/Vol] 3.8 mmol/L 3.5-5.1 [facility] Sodium [Moles/Vol] 141 mmol/L 136-145 [facility] WBC (Bld) [#/Vol] 9.5 10*3/uL 4.4-11.0 [facility] Blood erythrocytes count (nu mber/volume)Ordered By: Alfredo Phipps on 10-14-2023 RBC (Bld) [#/Vol] 4.51 10*6/uL 4.6-6.2 [facility] Blood hemoglobin measurement (mass/volume)Ordered By: Alfredo Phipps on 10-14-2023 Hemoglobin (Bld) [Mass/Vol] 13.0 g/dL 13.0-16.5 [facility] Blood lymphocytes/100 leukoc ytesOrdered By: Alfredo Phipps on 10-14-2023 Lymphocytes/100 WBC (Bld) 15.9 % 19-41 [facility] Blood monocytes/100 leukocyt esOrdered By: Alfredo Phipps on 10-14-2023 Monocytes/100 WBC (Bld) 8.3 % 0-10 [facility] Blood platelet mean volumeOr dered By: Alfredo Phipps on 10-14-2023 Platelet mean volume (Bld) [Entitic vol] 9.7 fL 6.2-12.0 [facility] Determination of erythrocyte mean corpuscular volume (MCV)Ordered By: Alferdo Phipps on 10-14-2023 MCV (RBC) [Entitic vol] 90.2 fL 80-94 [facility] Hematocrit Auto (Bld) [Volum e fraction]Ordered By: Alfredo Phipps on 10-14-2023 Hematocrit (Bld) [Volume fraction] 40.7 % 40-54 [facility] Laboratory - Chemistry and C hemistry - challengeOrdered By: Alfredo Phipps on 10-14-2023 CO2 [Moles/Vol] 26.0 mmol/L 21.0-32.0 [facility] Urea nitrogen/Creatinine [Mass ratio] 7.5 mg/mg 10-20 [facility] Laboratory - Hematology and Cell countsOrdered By: Alfredo Phipps on 10-14-2023 Erythrocyte distribution width (RBC) [Entitic vol] 43.6 fL 35.1-43.9 [facility] Erythrocyte distribution width (RBC) [Ratio] 13.2 % 11.6-14.6 [facility] Immature granulocytes/100 WBC (Bld) 0.800 % 0.0-0.9 [facility] Comment on above: IG% - Immature Granu locytes (promyelocytes, myelocytes and metamyelocytes) > 1% indicates that a LEFT SHIFT is Present. MCH (RBC) [Entitic mass] 28.8 pg 27.0-32.0 [facility] Nucleated RBC/100 WBC (Bld) [Ratio] 0 % 0-5 [facility] MCHC Auto (RBC) [Mass/Vol]Or dered By: Alfredo Phipps on 10-14-2023 MCHC (RBC) [Mass/Vol] 31.9 g/dL 32-36 [facility] No Panel InformationOrdered By: Alfredo Phipps on 10-14-2023 Estimated GFR (MDRD) Amer 41 mL/min >60 [facility] Comment on above: GFR Calc Estimated GFR (MDRD) Non-Af Amer 34 mL/min >60 [facility] Comment on above: Non- GFR Calc [place] Level 0.50 mmol/L 0.60-1.20 [facility] Platelets bldOrdered By: Jennifer Phipps on 10-14-2023 Platelets (Bld) [#/Vol] 224 10*3/uL 150-450 [facility] Serum or plasma albumin you urement (mass/volume)Ordered By: Alfredo Phipps on 10-14-2023 Albumin [Mass/Vol] 2.9 g/dL 3.2-5.0 [facility] Serum or plasma calcium you urement (mass/volume)Ordered By: Alfredo Phipps on 10-14-2023 Calcium [Mass/Vol] 8.5 mg/dL 8.5-10.1 [facility] Serum or plasma creatinine m easurement (mass/volume)Ordered By: Alfredo Phipps on 10-14-2023 Creatinine [Mass/Vol] 2.12 mg/dL 0.70-1.30 [facility] Comment on above: The validity of the calculated GFR & GFRAA in patients over 70 years has not been determined. Clinical correlation is essential. Serum or plasma urea nitroge n measurement (mass/volume)Ordered By: Alfredo Phipps on 10-14-2023 Urea nitrogen [Mass/Vol] 16 mg/dL 7-18 [facility] Urine creatinine measurement (mass/volume)Ordered By: Alfredo Phipps on 10-14-2023 Creatinine (U) [Mass/Vol] 195.00 mg/dL NO RANGE EST. [facility] Urine protein measurement (m ass/volume)Ordered By: Alfredo Phipps on 10-14-2023 Protein (U) [Mass/Vol] 23.4 mg/dL 0.0-11.8 [facility] Urine protein/creatinine mas s ratioOrdered By: Alfredo Phipps on 10-14-2023 Protein/Creatinine (U) [Mass ratio] 120 mg/g CRE 0-200 [facility] Serum or plasma uric acid me asurement (mass/volume)Ordered By: Adam Ferraro on 09-27-2023 Urate [Mass/Vol] 7.3 mg/dL 3.5-7.2 [facility] Comment on above: The drugs N-Acetylcy steine and Metamizole may falsely depress this assay. Absolute lymphocyte countOrd ered By: Alfredo Phipps on 09-16-2023 Lymphocytes Auto (Unsp spec) [#/Vol] 1.78 10*3/uL 0.83-4.51 [facility] Basophil percentageOrdered B y: Alfredo Phipps on 09-16-2023 Basophil percentage 4.3 mg/dL 2.5-4.9 [facility] Basophils/100 WBC (Bld) 1.0 % 0-1 [facility] Chloride [Moles/Vol] 109 mmol/L 98-107 [facility] Eosinophils/100 WBC (Bld) 4.4 % 0-5 [facility] Glucose [Mass/Vol] 143 mg/dL 74-106 [facility] Comment on above: Fasting Glucose resu lt greater than or equal to 126 mg/dL suggests DIABETES MELLITUS per A.D.A. criteria. Neutrophils (Bld) [#/Vol] 6.3 10*3/uL 2.0-7.7 [facility] Neutrophils/100 WBC (Bld) 67.0 % 47-70 [facility] Potassium [Moles/Vol] 4.1 mmol/L 3.5-5.1 [facility] Sodium [Moles/Vol] 139 mmol/L 136-145 [facility] WBC (Bld) [#/Vol] 9.4 10*3/uL 4.4-11.0 [facility] Blood erythrocytes count (nu mber/volume)Ordered By: Alfredo Phipps on 09-16-2023 RBC (Bld) [#/Vol] 4.63 10*6/uL 4.6-6.2 [facility] Blood hemoglobin measurement (mass/volume)Ordered By: Alfredo Phipps on 09-16-2023 Hemoglobin (Bld) [Mass/Vol] 13.4 g/dL 13.0-16.5 [facility] Blood lymphocytes/100 leukoc ytesOrdered By: Alfredo Phipps on 09-16-2023 Lymphocytes/100 WBC (Bld) 19.0 % 19-41 [facility] Blood monocytes/100 leukocyt esOrdered By: Alfredo Phipps on 09-16-2023 Monocytes/100 WBC (Bld) 8.3 % 0-10 [facility] Blood platelet mean volumeOr dered By: Alfredo Phipps on 09-16-2023 Platelet mean volume (Bld) [Entitic vol] 9.6 fL 6.2-12.0 [facility] Determination of erythrocyte mean corpuscular volume (MCV)Ordered By: Alfredo Phipps on 09-16-2023 MCV (RBC) [Entitic vol] 90.5 fL 80-94 [facility] Hematocrit Auto (Bld) [Volum e fraction]Ordered By: Alfredo Phipps on 09-16-2023 Hematocrit (Bld) [Volume fraction] 41.9 % 40-54 [facility] Laboratory - Chemistry and C hemistry - challengeOrdered By: Alfredo Phipps on 09-16-2023 CO2 [Moles/Vol] 23.0 mmol/L 21.0-32.0 [facility] Urea nitrogen/Creatinine [Mass ratio] 11.6 mg/mg 10-20 [facility] Laboratory - Hematology and Cell countsOrdered By: Alfredo Phipps on 09-16-2023 Erythrocyte distribution width (RBC) [Entitic vol] 46.1 fL 35.1-43.9 [facility] Erythrocyte distribution width (RBC) [Ratio] 13.9 % 11.6-14.6 [facility] Immature granulocytes/100 WBC (Bld) 0.300 % 0.0-0.9 [facility] Comment on above: IG% - Immature Granu locytes (promyelocytes, myelocytes and metamyelocytes) > 1% indicates that a LEFT SHIFT is Present. MCH (RBC) [Entitic mass] 28.9 pg 27.0-32.0 [facility] Nucleated RBC/100 WBC (Bld) [Ratio] 0 % 0-5 [facility] Auto (RBC) [Mass/Vol]Or dered By: Alfredo Phipps on 09-16-2023 MCHC (RBC) [Mass/Vol] 32.0 g/dL 32-36 [facility] No Panel InformationOrdered By: Alfredo Phipps on 09-16-2023 Estimated GFR (MDRD) Amer 45 mL/min >60 [facility] Comment on above: GFR Calc Estimated GFR (MDRD) Non-Af Amer 37 mL/min >60 [facility] Comment on above: Non- GFR Calc [place] Level 0.60 mmol/L 0.60-1.20 [facility] Platelets bldOrdered By: Jennifer Phipps on 09-16-2023 Platelets (Bld) [#/Vol] 212 10*3/uL 150-450 [facility] Serum or plasma albumin you urement (mass/volume)Ordered By: Alfredo Phipps on 09-16-2023 Albumin [Mass/Vol] 2.9 g/dL 3.2-5.0 [facility] Serum or plasma calcium you urement (mass/volume)Ordered By: Alfredo Phipps on 09-16-2023 Calcium [Mass/Vol] 9.0 mg/dL 8.5-10.1 [facility] Serum or plasma creatinine m easurement (mass/volume)Ordered By: Alfredo Phipps on 09-16-2023 Creatinine [Mass/Vol] 1.98 mg/dL 0.70-1.30 [facility] Comment on above: The validity of the calculated GFR & GFRAA in patients over 70 years has not been determined. Clinical correlation is essential. Serum or plasma urea nitroge n measurement (mass/volume)Ordered By: Alfredo Phipps on 09-16-2023 Urea nitrogen [Mass/Vol] 23 mg/dL 7-18 [facility] Urine creatinine measurement (mass/volume)Ordered By: Alfredo Phipps on 09-16-2023 Creatinine (U) [Mass/Vol] 44.20 mg/dL NO RANGE EST. [facility] Urine protein measurement (m ass/volume)Ordered By: Alfredo Phipps on 09-16-2023 Protein (U) [Mass/Vol] mg/dL 0.0-11.8 [facility] Urine protein/creatinine mas s ratioOrdered By: Alfredo Phipps on 09-16-2023 Protein/Creatinine (U) [Mass ratio] 131 mg/g CRE 0-200 [facility] Urine creatinine measurement (mass/volume)Ordered By: Adam Ferraro on 08-22-2023 Creatinine (U) [Mass/Vol] 105.00 mg/dL NO RANGE EST. [facility] Urine protein measurement (m ass/volume)Ordered By: Adam Ferraro on 08-22-2023 Protein (U) [Mass/Vol] 19.3 mg/dL 0.0-11.8 [facility] Urine protein/creatinine mas s ratioOrdered By: Adam Ferraro on 08-22-2023 Protein/Creatinine (U) [Mass ratio] 184 mg/g CRE 0-200 [facility] Absolute lymphocyte countOrd ered By: Adam Ferraro on 08-19-2023 Lymphocytes Auto (Unsp spec) [#/Vol] 2.02 10*3/uL 0.83-4.51 [facility] Basophil percentageOrdered B y: Adam Ferraro on 08-19-2023 Basophil percentage 4.0 mg/dL 2.5-4.9 [facility] Basophils/100 WBC (Bld) 0.7 % 0-1 [facility] Chloride [Moles/Vol] 108 mmol/L 98-107 [facility] Eosinophils/100 WBC (Bld) 4.4 % 0-5 [facility] Glucose [Mass/Vol] 161 mg/dL 74-106 [facility] Comment on above: Fasting Glucose resu lt greater than or equal to 126 mg/dL suggests DIABETES MELLITUS per A.D.A. criteria. Neutrophils (Bld) [#/Vol] 7.4 10*3/uL 2.0-7.7 [facility] Neutrophils/100 WBC (Bld) 66.8 % 47-70 [facility] Potassium [Moles/Vol] 3.9 mmol/L 3.5-5.1 [facility] Sodium [Moles/Vol] 140 mmol/L 136-145 [facility] WBC (Bld) [#/Vol] 11.1 10*3/uL 4.4-11.0 [facility] Blood erythrocytes count (nu mber/volume)Ordered By: Adam Ferraro on 08-19-2023 RBC (Bld) [#/Vol] 4.67 10*6/uL 4.6-6.2 [facility] Blood hemoglobin measurement (mass/volume)Ordered By: Adam Ferraro on 08-19-2023 Hemoglobin (Bld) [Mass/Vol] 13.5 g/dL 13.0-16.5 [facility] Blood lymphocytes/100 leukoc ytesOrdered By: Adam Ferraro on 08-19-2023 Lymphocytes/100 WBC (Bld) 18.3 % 19-41 [facility] Blood monocytes/100 leukocyt esOrdered By: Adam Ferraro on 08-19-2023 Monocytes/100 WBC (Bld) 9.1 % 0-10 [facility] Blood platelet mean volumeOr dered By: Adam Ferraro on 08-19-2023 Platelet mean volume (Bld) [Entitic vol] 9.4 fL 6.2-12.0 [facility] Determination of erythrocyte mean corpuscular volume (MCV)Ordered By: Adam Ferraro on 08-19-2023 MCV (RBC) [Entitic vol] 90.1 fL 80-94 [facility] Hematocrit Auto (Bld) [Volum e fraction]Ordered By: Adam Ferraro on 08-19-2023 Hematocrit (Bld) [Volume fraction] 42.1 % 40-54 [facility] Laboratory - Chemistry and C hemistry - challengeOrdered By: Adam Ferraro on 08-19-2023 CO2 [Moles/Vol] 26.0 mmol/L 21.0-32.0 [facility] Urea nitrogen/Creatinine [Mass ratio] 10.9 mg/mg 10-20 [facility] Laboratory - Hematology and Cell countsOrdered By: Adam Ferraro on 08-19-2023 Erythrocyte distribution width (RBC) [Entitic vol] 45.8 fL 35.1-43.9 [facility] Erythrocyte distribution width (RBC) [Ratio] 13.8 % 11.6-14.6 [facility] Immature granulocytes/100 WBC (Bld) 0.700 % 0.0-0.9 [facility] Comment on above: IG% - Immature Granu locytes (promyelocytes, myelocytes and metamyelocytes) > 1% indicates that a LEFT SHIFT is Present. MCH (RBC) [Entitic mass] 28.9 pg 27.0-32.0 [facility] Nucleated RBC/100 WBC (Bld) [Ratio] 0 % 0-5 [facility] MCHC Auto (RBC) [Mass/Vol]Or dered By: Adma Ferraro on 08-19-2023 MCHC (RBC) [Mass/Vol] 32.1 g/dL 32-36 [facility] No Panel InformationOrdered By: Adam Ferraro on 08-19-2023 Estimated GFR (MDRD) Amer 44 mL/min >60 [facility] Comment on above: GFR Calc Estimated GFR (MDRD) Non-Af Amer 36 mL/min >60 [facility] Comment on above: Non- GFR Calc [place] Level 0.50 mmol/L 0.60-1.20 [facility] Platelets bldOrdered By: Benoit Ferraro on 08-19-2023 Platelets (Bld) [#/Vol] 218 10*3/uL 150-450 [facility] Serum or plasma albumin you urement (mass/volume)Ordered By: Adam Ferraro on 08-19-2023 Albumin [Mass/Vol] 2.9 g/dL 3.2-5.0 [facility] Serum or plasma calcium you urement (mass/volume)Ordered By: Adam Ferraro on 08-19-2023 Calcium [Mass/Vol] 9.0 mg/dL 8.5-10.1 [facility] Serum or plasma creatinine m easurement (mass/volume)Ordered By: Adam Ferraro on 08-19-2023 Creatinine [Mass/Vol] 2.01 mg/dL 0.70-1.30 [facility] Comment on above: The validity of the calculated GFR & GFRAA in patients over 70 years has not been determined. Clinical correlation is essential. Serum or plasma urea nitroge n measurement (mass/volume)Ordered By: Adam Ferraro on 08-19-2023 Urea nitrogen [Mass/Vol] 22 mg/dL 7-18 [facility] Whole blood hemoglobin A1c/t otal hemoglobin ratio (mass fraction)Ordered By: Adam Ferraro on 08-19-2023 HbA1c (Bld) [Mass fraction] 7.2 % 3.8-5.6 [facility] Comment on above: Normal < 5.7 % Predi abetic 5.7 - 6.4 % Diabetic >or= 6.5 % Please note range changes. Basophil percentageOrdered B y: Adam Ferraro on 07-28-2023 Cholesterol [Mass/Vol] 124 mg/dL <200 [facility] Comment on above: <200 mg/dL Desirable 200-240 mg/dL Borderline >240 mg/dL High Risk Triglyceride [Mass/Vol] 234 mg/dL <199 [facility] Comment on above: The drugs N-Acetylcy steine and Metamizole may falsely depress this assay.Serum Triglycerides Reference Interval Normal <150 mg/dL Borderline high 150 - 199 mg/dL High 200 - 499 mg/dL Very High > or = 500 mg/dL Serum or plasma cholesterol in HDL measurement (mass/volume)Ordered By: Adam Ferraro on 07-28-2023 Cholesterol in HDL [Mass/Vol] 36 mg/dL >40 [facility] Comment on above: The drugs N-Acetylcy steine and Metamizole may falsely depress this assay. Reference Range HDL <40 mg/dL Low HDL Cholesterol HDL >or= 60 mg/dL High HDL Cholesterol Serum or plasma cholesterol in VLDL measurement (mass/volume)Ordered By: Adam Ferraro on 07-28-2023 Cholesterol in VLDL [Mass/Vol] 47 mg/dL 5-40 [facility] Serum or plasma low density lipoprotein (LDL) cholesterol measurement (mass/volume)Ordered By: Adam Ferraro on 07-28-2023 Cholesterol in LDL [Mass/Vol] 41 mg/dL 0-130 [facility] Serum or plasma uric acid me asurement (mass/volume)Ordered By: Adam Ferraro on 07-28-2023 Urate [Mass/Vol] 6.6 mg/dL 3.5-7.2 [facility] Comment on above: The drugs N-Acetylcy steine and Metamizole may falsely depress this assay. Urine creatinine measurement (mass/volume)Ordered By: Adam Ferraro on 07-24-2023 Creatinine (U) [Mass/Vol] 113.00 mg/dL NO RANGE EST. [facility] Urine protein measurement (m ass/volume)Ordered By: Adam Ferraro on 07-24-2023 Protein (U) [Mass/Vol] 15.1 mg/dL 0.0-11.8 [facility] Urine protein/creatinine mas s ratioOrdered By: Adam Ferraro on 07-24-2023 Protein/Creatinine (U) [Mass ratio] 134 mg/g CRE 0-200 [facility] Absolute lymphocyte countOrd ered By: Alfredo Phipps on 07-22-2023 Lymphocytes Auto (Unsp spec) [#/Vol] 1.60 10*3/uL 0.83-4.51 [facility] Basophil percentageOrdered B y: Alfredo Phipps on 07-22-2023 Basophil percentage 4.2 mg/dL 2.5-4.9 [facility] Basophils/100 WBC (Bld) 1.1 % 0-1 [facility] Chloride [Moles/Vol] 108 mmol/L 98-107 [facility] Eosinophils/100 WBC (Bld) 2.7 % 0-5 [facility] Glucose [Mass/Vol] 138 mg/dL 74-106 [facility] Comment on above: Fasting Glucose resu lt greater than or equal to 126 mg/dL suggests DIABETES MELLITUS per A.D.A. criteria. Neutrophils (Bld) [#/Vol] 6.9 10*3/uL 2.0-7.7 [facility] Neutrophils/100 WBC (Bld) 69.3 % 47-70 [facility] Potassium [Moles/Vol] 3.8 mmol/L 3.5-5.1 [facility] Sodium [Moles/Vol] 135 mmol/L 136-145 [facility] WBC (Bld) [#/Vol] 9.9 10*3/uL 4.4-11.0 [facility] Blood erythrocytes count (nu mber/volume)Ordered By: Alfredo Phipps on 07-22-2023 RBC (Bld) [#/Vol] 4.79 10*6/uL 4.6-6.2 [facility] Blood hemoglobin measurement (mass/volume)Ordered By: Alfredo Phipps on 07-22-2023 Hemoglobin (Bld) [Mass/Vol] 13.6 g/dL 13.0-16.5 [facility] Blood lymphocytes/100 leukoc ytesOrdered By: Alfredo Phipps on 07-22-2023 Lymphocytes/100 WBC (Bld) 16.1 % 19-41 [facility] Blood monocytes/100 leukocyt esOrdered By: Alfredo Phipps on 07-22-2023 Monocytes/100 WBC (Bld) 10.2 % 0-10 [facility] Blood platelet mean volumeOr dered By: Alfredo Phipps on 07-22-2023 Platelet mean volume (Bld) [Entitic vol] 10.8 fL 6.2-12.0 [facility] Determination of erythrocyte mean corpuscular volume (MCV)Ordered By: Alfredo Phipps on 07-22-2023 MCV (RBC) [Entitic vol] 98.1 fL 80-94 [facility] Hematocrit Auto (Bld) [Volum e fraction]Ordered By: Alfredo Phipps on 07-22-2023 Hematocrit (Bld) [Volume fraction] 47.0 % 40-54 [facility] Laboratory - Chemistry and C hemistry - challengeOrdered By: Alfredo Phipps on 07-22-2023 CO2 [Moles/Vol] 19.0 mmol/L 21.0-32.0 [facility] Urea nitrogen/Creatinine [Mass ratio] 10.7 mg/mg 10-20 [facility] Laboratory - Hematology and Cell countsOrdered By: Alfredo Phipps on 07-22-2023 Erythrocyte distribution width (RBC) [Entitic vol] 58.0 fL 35.1-43.9 [facility] Erythrocyte distribution width (RBC) [Ratio] 16.4 % 11.6-14.6 [facility] Immature granulocytes/100 WBC (Bld) 0.600 % 0.0-0.9 [facility] Comment on above: IG% - Immature Granu locytes (promyelocytes, myelocytes and metamyelocytes) > 1% indicates that a LEFT SHIFT is Present. MCH (RBC) [Entitic mass] 28.4 pg 27.0-32.0 [facility] Nucleated RBC/100 WBC (Bld) [Ratio] 0 % 0-5 [facility] MCHC Auto (RBC) [Mass/Vol]Or dered By: Alfredo Phipps on 07-22-2023 MCHC (RBC) [Mass/Vol] 28.9 g/dL 32-36 [facility] No Panel InformationOrdered By: Alfredo Phipps on 07-22-2023 Estimated GFR (MDRD) Amer 45 mL/min >60 [facility] Comment on above: GFR Calc Estimated GFR (MDRD) Non-Af Amer 37 mL/min >60 [facility] Comment on above: Non- GFR Calc [place] Level 0.60 mmol/L 0.60-1.20 [facility] Platelets bldOrdered By: Pet shonda Phipps on 07-22-2023 Platelets (Bld) [#/Vol] 209 10*3/uL 150-450 [facility] Serum or plasma albumin you urement (mass/volume)Ordered By: Alfredo Phipps on 07-22-2023 Albumin [Mass/Vol] 2.6 g/dL 3.2-5.0 [facility] Serum or plasma calcium you urement (mass/volume)Ordered By: Alfredo Phipps on 07-22-2023 Calcium [Mass/Vol] 9.1 mg/dL 8.5-10.1 [facility] Serum or plasma creatinine m easurement (mass/volume)Ordered By: Alfredo Phipps on 07-22-2023 Creatinine [Mass/Vol] 1.97 mg/dL 0.70-1.30 [facility] Comment on above: The validity of the calculated GFR & GFRAA in patients over 70 years has not been determined. Clinical correlation is essential. Serum or plasma urea nitroge n measurement (mass/volume)Ordered By: Alfredo Phipps on 07-22-2023 Urea nitrogen [Mass/Vol] 21 mg/dL 7-18 [facility] Absolute lymphocyte countOrd ered By: Alfredo Phipps on 06-24-2023 Lymphocytes Auto (Unsp spec) [#/Vol] 2.04 10*3/uL 0.83-4.51 [facility] Basophil percentageOrdered B y: Alfredo Phipps on 06-24-2023 Basophil percentage 4.4 mg/dL 2.5-4.9 [facility] Basophils/100 WBC (Bld) 1.2 % 0-1 [facility] Chloride [Moles/Vol] 107 mmol/L 98-107 [facility] Eosinophils/100 WBC (Bld) 5.2 % 0-5 [facility] Glucose [Mass/Vol] 144 mg/dL 74-106 [facility] Comment on above: Fasting Glucose resu lt greater than or equal to 126 mg/dL suggests DIABETES MELLITUS per A.D.A. criteria. Neutrophils (Bld) [#/Vol] 5.9 10*3/uL 2.0-7.7 [facility] Neutrophils/100 WBC (Bld) 62.3 % 47-70 [facility] Potassium [Moles/Vol] 3.7 mmol/L 3.5-5.1 [facility] Sodium [Moles/Vol] 138 mmol/L 136-145 [facility] WBC (Bld) [#/Vol] 9.4 10*3/uL 4.4-11.0 [facility] Blood erythrocytes count (nu mber/volume)Ordered By: Alfredo Phipps on 06-24-2023 RBC (Bld) [#/Vol] 4.95 10*6/uL 4.6-6.2 [facility] Blood hemoglobin measurement (mass/volume)Ordered By: Alfredo Phipps on 06-24-2023 Hemoglobin (Bld) [Mass/Vol] 14.2 g/dL 13.0-16.5 [facility] Blood lymphocytes/100 leukoc ytesOrdered By: Alfredo Phipps on 06-24-2023 Lymphocytes/100 WBC (Bld) 21.7 % 19-41 [facility] Blood monocytes/100 leukocyt esOrdered By: Alfredo Phipps on 06-24-2023 Monocytes/100 WBC (Bld) 9.1 % 0-10 [facility] Blood platelet mean volumeOr dered By: Alfredo Phipps on 06-24-2023 Platelet mean volume (Bld) [Entitic vol] 9.8 fL 6.2-12.0 [facility] Determination of erythrocyte mean corpuscular volume (MCV)Ordered By: Alfredo Phipps on 06-24-2023 MCV (RBC) [Entitic vol] 88.5 fL 80-94 [facility] Hematocrit Auto (Bld) [Volum e fraction]Ordered By: Alfredo Phipps on 06-24-2023 Hematocrit (Bld) [Volume fraction] 43.8 % 40-54 [facility] Laboratory - Chemistry and C hemistry - challengeOrdered By: Alfredo Phipps on 06-24-2023 CO2 [Moles/Vol] 25.0 mmol/L 21.0-32.0 [facility] Urea nitrogen/Creatinine [Mass ratio] 11.5 mg/mg 10-20 [facility] Laboratory - Hematology and Cell countsOrdered By: Alfredo Phipps on 06-24-2023 Erythrocyte distribution width (RBC) [Entitic vol] 42.3 fL 35.1-43.9 [facility] Erythrocyte distribution width (RBC) [Ratio] 13.1 % 11.6-14.6 [facility] Immature granulocytes/100 WBC (Bld) 0.500 % 0.0-0.9 [facility] Comment on above: IG% - Immature Granu locytes (promyelocytes, myelocytes and metamyelocytes) > 1% indicates that a LEFT SHIFT is Present. MCH (RBC) [Entitic mass] 28.7 pg 27.0-32.0 [facility] Nucleated RBC/100 WBC (Bld) [Ratio] 0 % 0-5 [facility] MCHC Auto (RBC) [Mass/Vol]Or dered By: Alfredo Phipps on 06-24-2023 MCHC (RBC) [Mass/Vol] 32.4 g/dL 32-36 [facility] No Panel InformationOrdered By: Alfredo Phipps on 06-24-2023 Estimated GFR (MDRD) Amer 49 mL/min >60 [facility] Comment on above: GFR Calc Estimated GFR (MDRD) Non-Af Amer 40 mL/min >60 [facility] Comment on above: Non- GFR Calc [place] Level 0.60 mmol/L 0.60-1.20 [facility] Platelets bldOrdered By: Jennifer Phipps on 06-24-2023 Platelets (Bld) [#/Vol] 213 10*3/uL 150-450 [facility] Serum or plasma albumin you urement (mass/volume)Ordered By: Alfredo Phipps on 06-24-2023 Albumin [Mass/Vol] 2.9 g/dL 3.2-5.0 [facility] Serum or plasma calcium you urement (mass/volume)Ordered By: Alfredo Phipps on 06-24-2023 Calcium [Mass/Vol] 9.1 mg/dL 8.5-10.1 [facility] Serum or plasma creatinine m easurement (mass/volume)Ordered By: Alfredo Phipps on 06-24-2023 Creatinine [Mass/Vol] 1.83 mg/dL 0.70-1.30 [facility] Comment on above: The validity of the calculated GFR & GFRAA in patients over 70 years has not been determined. Clinical correlation is essential. Serum or plasma urea nitroge n measurement (mass/volume)Ordered By: Alfredo Phipps on 06-24-2023 Urea nitrogen [Mass/Vol] 21 mg/dL 7-18 [facility] Serum or plasma uric acid me asurement (mass/volume)Ordered By: Alfredo Phipps on 06-24-2023 Urate [Mass/Vol] 6.5 mg/dL 3.5-7.2 [facility] Comment on above: The drugs N-Acetylcy steine and Metamizole may falsely depress this assay. Urine creatinine measurement (mass/volume)Ordered By: Alfredo Phipps on 06-24-2023 Creatinine (U) [Mass/Vol] 127.00 mg/dL NO RANGE EST. [facility] Urine protein measurement (m ass/volume)Ordered By: Alfredo Phipps on 06-24-2023 Protein (U) [Mass/Vol] 19.9 mg/dL 0.0-11.8 [facility] Urine protein/creatinine mas s ratioOrdered By: Alfredo Phipps on 06-24-2023 Protein/Creatinine (U) [Mass ratio] 157 mg/g CRE 0-200 [facility] Urine creatinine measurement (mass/volume)Ordered By: Adam Ferraro on 05-30-2023 Creatinine (U) [Mass/Vol] 73.90 mg/dL NO RANGE EST. [facility] Urine protein measurement (m ass/volume)Ordered By: Adam Ferraro on 05-30-2023 Protein (U) [Mass/Vol] 18.0 mg/dL 0.0-11.8 [facility] Urine protein/creatinine mas s ratioOrdered By: Adam Ferraro on 05-30-2023 Protein/Creatinine (U) [Mass ratio] 244 mg/g CRE 0-200 [facility] Absolute lymphocyte countOrd ered By: Adam Ferraro on 05-27-2023 Lymphocytes Auto (Unsp spec) [#/Vol] 1.85 10*3/uL 0.83-4.51 [facility] Basophil percentageOrdered B y: Adam Ferraro on 05-27-2023 Basophil percentage 3.9 mg/dL 2.5-4.9 [facility] Basophils/100 WBC (Bld) 1.1 % 0-1 [facility] Chloride [Moles/Vol] 106 mmol/L 98-107 [facility] Eosinophils/100 WBC (Bld) 3.3 % 0-5 [facility] Glucose [Mass/Vol] 208 mg/dL 74-106 [facility] Comment on above: Glucose result great er than or equal to 200 mg/dLsuggests DIABETES MELLITUS per A.D.A. criteria. Neutrophils (Bld) [#/Vol] 5.6 10*3/uL 2.0-7.7 [facility] Neutrophils/100 WBC (Bld) 64.5 % 47-70 [facility] Potassium [Moles/Vol] 3.7 mmol/L 3.5-5.1 [facility] Sodium [Moles/Vol] 138 mmol/L 136-145 [facility] WBC (Bld) [#/Vol] 8.7 10*3/uL 4.4-11.0 [facility] Blood erythrocytes count (nu mber/volume)Ordered By: Adam Ferraro on 05-27-2023 RBC (Bld) [#/Vol] 4.98 10*6/uL 4.6-6.2 [facility] Blood hemoglobin measurement (mass/volume)Ordered By: Adam Ferraro on 05-27-2023 Hemoglobin (Bld) [Mass/Vol] 14.4 g/dL 13.0-16.5 [facility] Blood lymphocytes/100 leukoc ytesOrdered By: Adam Ferraro on 05-27-2023 Lymphocytes/100 WBC (Bld) 21.2 % 19-41 [facility] Blood monocytes/100 leukocyt esOrdered By: Adam Ferraro on 05-27-2023 Monocytes/100 WBC (Bld) 9.3 % 0-10 [facility] Blood platelet mean volumeOr dered By: Adam Ferraro on 05-27-2023 Platelet mean volume (Bld) [Entitic vol] 10.0 fL 6.2-12.0 [facility] Determination of erythrocyte mean corpuscular volume (MCV)Ordered By: Adam Ferraro on 05-27-2023 MCV (RBC) [Entitic vol] 89.6 fL 80-94 [facility] Hematocrit Auto (Bld) [Volum e fraction]Ordered By: Adam Ferraro on 05-27-2023 Hematocrit (Bld) [Volume fraction] 44.6 % 40-54 [facility] Laboratory - Chemistry and C hemistry - challengeOrdered By: Adam Ferraro on 05-27-2023 CO2 [Moles/Vol] 27.0 mmol/L 21.0-32.0 [facility] Urea nitrogen/Creatinine [Mass ratio] 11.5 mg/mg 10-20 [facility] Laboratory - Hematology and Cell countsOrdered By: Adam Ferraro on 05-27-2023 Erythrocyte distribution width (RBC) [Entitic vol] 42.2 fL 35.1-43.9 [facility] Erythrocyte distribution width (RBC) [Ratio] 13.0 % 11.6-14.6 [facility] Immature granulocytes/100 WBC (Bld) 0.600 % 0.0-0.9 [facility] Comment on above: IG% - Immature Granu locytes (promyelocytes, myelocytes and metamyelocytes) > 1% indicates that a LEFT SHIFT is Present. MCH (RBC) [Entitic mass] 28.9 pg 27.0-32.0 [facility] Nucleated RBC/100 WBC (Bld) [Ratio] 0 % 0-5 [facility] MCHC Auto (RBC) [Mass/Vol]Or dered By: Adam Ferraro on 05-27-2023 MCHC (RBC) [Mass/Vol] 32.3 g/dL 32-36 [facility] No Panel InformationOrdered By: Adam Ferraro on 05-27-2023 Estimated GFR (MDRD) Amer 52 mL/min >60 [facility] Comment on above: GFR Calc Estimated GFR (MDRD) Non-Af Amer 43 mL/min >60 [facility] Comment on above: Non- GFR Calc [place] Level 0.40 mmol/L 0.60-1.20 [facility] Platelets bldOrdered By: Benoit loni Jasmine on 05-27-2023 Platelets (Bld) [#/Vol] 211 10*3/uL 150-450 [facility] Serum or plasma albumin you urement (mass/volume)Ordered By: Adam Ferraro on 05-27-2023 Albumin [Mass/Vol] 2.9 g/dL 3.2-5.0 [facility] Serum or plasma calcium you urement (mass/volume)Ordered By: Adam Ferraro on 05-27-2023 Calcium [Mass/Vol] 9.2 mg/dL 8.5-10.1 [facility] Serum or plasma creatinine m easurement (mass/volume)Ordered By: Adam Ferraro on 05-27-2023 Creatinine [Mass/Vol] 1.74 mg/dL 0.70-1.30 [facility] Comment on above: The validity of the calculated GFR & GFRAA in patients over 70 years has not been determined. Clinical correlation is essential. Serum or plasma urea nitroge n measurement (mass/volume)Ordered By: Adam Ferraro on 05-27-2023 Urea nitrogen [Mass/Vol] 20 mg/dL 7-18 [facility] Serum or plasma uric acid me asurement (mass/volume)Ordered By: Adam Ferraro on 05-27-2023 Urate [Mass/Vol] 4.9 mg/dL 3.5-7.2 [facility] Comment on above: The drugs N-Acetylcy steine and Metamizole may falsely depress this assay. Whole blood hemoglobin A1c/t otal hemoglobin ratio (mass fraction)Ordered By: Adam Ferraro on 05-19-2023 HbA1c (Bld) [Mass fraction] 11.1 % 3.8-5.6 [facility] Comment on above: Normal < 5.7 % Predi abetic 5.7 - 6.4 % Diabetic >or= 6.5 % Please note range changes. Absolute lymphocyte countOrd ered By: Alfredo Phipps on 04-29-2023 Lymphocytes Auto (Unsp spec) [#/Vol] 1.98 10*3/uL 0.83-4.51 [facility] Basophil percentageOrdered B y: Alfredo Phipps on 04-29-2023 Basophil percentage 3.6 mg/dL 2.5-4.9 [facility] Basophils/100 WBC (Bld) 1.0 % 0-1 [facility] Chloride [Moles/Vol] 105 mmol/L 98-107 [facility] Eosinophils/100 WBC (Bld) 2.7 % 0-5 [facility] Glucose [Mass/Vol] 300 mg/dL 74-106 [facility] Comment on above: Glucose result great er than or equal to 200 mg/dLsuggests DIABETES MELLITUS per A.D.A. criteria. Neutrophils (Bld) [#/Vol] 5.7 10*3/uL 2.0-7.7 [facility] Neutrophils/100 WBC (Bld) 64.2 % 47-70 [facility] Potassium [Moles/Vol] 3.9 mmol/L 3.5-5.1 [facility] Sodium [Moles/Vol] 138 mmol/L 136-145 [facility] WBC (Bld) [#/Vol] 8.9 10*3/uL 4.4-11.0 [facility] Blood erythrocytes count (nu mber/volume)Ordered By: Alfredo Phipps on 04-29-2023 RBC (Bld) [#/Vol] 4.74 10*6/uL 4.6-6.2 [facility] Blood hemoglobin measurement (mass/volume)Ordered By: Alfredo Phipps on 04-29-2023 Hemoglobin (Bld) [Mass/Vol] 13.6 g/dL 13.0-16.5 [facility] Blood lymphocytes/100 leukoc ytesOrdered By: Alfredo Phipps on 04-29-2023 Lymphocytes/100 WBC (Bld) 22.2 % 19-41 [facility] Blood monocytes/100 leukocyt esOrdered By: Alfredo Phipps on 04-29-2023 Monocytes/100 WBC (Bld) 9.2 % 0-10 [facility] Blood platelet mean volumeOr dered By: Alfredo Phipps on 04-29-2023 Platelet mean volume (Bld) [Entitic vol] 9.7 fL 6.2-12.0 [facility] Determination of erythrocyte mean corpuscular volume (MCV)Ordered By: Alfredo Phipps on 04-29-2023 MCV (RBC) [Entitic vol] 87.8 fL 80-94 [facility] Hematocrit Auto (Bld) [Volum e fraction]Ordered By: Alfredo Phipps on 04-29-2023 Hematocrit (Bld) [Volume fraction] 41.6 % 40-54 [facility] Laboratory - Chemistry and C hemistry - challengeOrdered By: Alfredo Phipps on 04-29-2023 CO2 [Moles/Vol] 24.0 mmol/L 21.0-32.0 [facility] Urea nitrogen/Creatinine [Mass ratio] 13.7 mg/mg 10-20 [facility] Laboratory - Hematology and Cell countsOrdered By: Alfredo Phipps on 04-29-2023 Erythrocyte distribution width (RBC) [Entitic vol] 41.7 fL 35.1-43.9 [facility] Erythrocyte distribution width (RBC) [Ratio] 12.9 % 11.6-14.6 [facility] Immature granulocytes/100 WBC (Bld) 0.700 % 0.0-0.9 [facility] Comment on above: IG% - Immature Granu locytes (promyelocytes, myelocytes and metamyelocytes) > 1% indicates that a LEFT SHIFT is Present. MCH (RBC) [Entitic mass] 28.7 pg 27.0-32.0 [facility] Nucleated RBC/100 WBC (Bld) [Ratio] 0 % 0-5 [facility] MCHC Auto (RBC) [Mass/Vol]Or dered By: Alfredo Phipps on 04-29-2023 MCHC (RBC) [Mass/Vol] 32.7 g/dL 32-36 [facility] No Panel InformationOrdered By: Alfredo Phipps on 04-29-2023 Estimated GFR (MDRD) Amer 51 mL/min >60 [facility] Comment on above: GFR Calc Estimated GFR (MDRD) Non-Af Amer 43 mL/min >60 [facility] Comment on above: Non- GFR Calc [place] Level 0.40 mmol/L 0.60-1.20 [facility] Platelets bldOrdered By: Jennifer Phipps on 04-29-2023 Platelets (Bld) [#/Vol] 204 10*3/uL 150-450 [facility] Serum or plasma albumin you urement (mass/volume)Ordered By: Alfredo Phipps on 04-29-2023 Albumin [Mass/Vol] 2.7 g/dL 3.2-5.0 [facility] Serum or plasma calcium oyu urement (mass/volume)Ordered By: Alfredo Phipps on 04-29-2023 Calcium [Mass/Vol] 8.9 mg/dL 8.5-10.1 [facility] Serum or plasma creatinine m easurement (mass/volume)Ordered By: Alfredo Phipps on 04-29-2023 Creatinine [Mass/Vol] 1.75 mg/dL 0.70-1.30 [facility] Comment on above: The validity of the calculated GFR & GFRAA in patients over 70 years has not been determined. Clinical correlation is essential. Serum or plasma urea nitroge n measurement (mass/volume)Ordered By: Alfredo Phipps on 04-29-2023 Urea nitrogen [Mass/Vol] 24 mg/dL 7-18 [facility] Serum or plasma uric acid me asurement (mass/volume)Ordered By: Alfredo Phipps on 04-27-2023 Urate [Mass/Vol] 4.8 mg/dL 3.5-7.2 [facility] Comment on above: The drugs N-Acetylcy steine and Metamizole may falsely depress this assay. Urine creatinine measurement (mass/volume)Ordered By: Adam Ferraro on 04-04-2023 Creatinine (U) [Mass/Vol] 96.50 mg/dL NO RANGE EST. [facility] Urine protein measurement (m ass/volume)Ordered By: Adam Ferraro on 04-04-2023 Protein (U) [Mass/Vol] 26.4 mg/dL 0.0-11.8 [facility] Urine protein/creatinine mas s ratioOrdered By: Aadm Ferraro on 04-04-2023 Protein/Creatinine (U) [Mass ratio] 274 mg/g CRE 0-200 [facility] Absolute lymphocyte countOrd ered By: Adam Ferraro on 04-01-2023 Lymphocytes Auto (Unsp spec) [#/Vol] 1.91 10*3/uL 0.83-4.51 [facility] Basophil percentageOrdered B y: Adam Ferraro on 04-01-2023 Basophil percentage 3.3 mg/dL 2.5-4.9 [facility] Basophils/100 WBC (Bld) 1.1 % 0-1 [facility] Chloride [Moles/Vol] 105 mmol/L 98-107 [facility] Eosinophils/100 WBC (Bld) 2.7 % 0-5 [facility] Glucose [Mass/Vol] 317 mg/dL 74-106 [facility] Comment on above: Glucose result great er than or equal to 200 mg/dLsuggests DIABETES MELLITUS per A.D.A. criteria. Neutrophils (Bld) [#/Vol] 5.4 10*3/uL 2.0-7.7 [facility] Neutrophils/100 WBC (Bld) 64.7 % 47-70 [facility] Potassium [Moles/Vol] 3.8 mmol/L 3.5-5.1 [facility] Sodium [Moles/Vol] 137 mmol/L 136-145 [facility] WBC (Bld) [#/Vol] 8.4 10*3/uL 4.4-11.0 [facility] Blood erythrocytes count (nu mber/volume)Ordered By: Adam Ferraro on 04-01-2023 RBC (Bld) [#/Vol] 5.17 10*6/uL 4.6-6.2 [facility] Blood hemoglobin measurement (mass/volume)Ordered By: Adam Ferraro on 04-01-2023 Hemoglobin (Bld) [Mass/Vol] 14.7 g/dL 13.0-16.5 [facility] Blood lymphocytes/100 leukoc ytesOrdered By: Adam Ferraro on 04-01-2023 Lymphocytes/100 WBC (Bld) 22.7 % 19-41 [facility] Blood monocytes/100 leukocyt esOrdered By: Adam Ferraro on 04-01-2023 Monocytes/100 WBC (Bld) 8.2 % 0-10 [facility] Blood platelet mean volumeOr dered By: Adam Ferraro on 04-01-2023 Platelet mean volume (Bld) [Entitic vol] 9.8 fL 6.2-12.0 [facility] Determination of erythrocyte mean corpuscular volume (MCV)Ordered By: Adam Ferraro on 04-01-2023 MCV (RBC) [Entitic vol] 88.6 fL 80-94 [facility] Hematocrit Auto (Bld) [Volum e fraction]Ordered By: Adam Ferraro on 04-01-2023 Hematocrit (Bld) [Volume fraction] 45.8 % 40-54 [facility] Laboratory - Chemistry and C hemistry - challengeOrdered By: Adam Ferraro on 04-01-2023 CO2 [Moles/Vol] 25.0 mmol/L 21.0-32.0 [facility] Urea nitrogen/Creatinine [Mass ratio] 13.7 mg/mg 10-20 [facility] Laboratory - Hematology and Cell countsOrdered By: Adam Ferraro on 04-01-2023 Erythrocyte distribution width (RBC) [Entitic vol] 42.5 fL 35.1-43.9 [facility] Erythrocyte distribution width (RBC) [Ratio] 13.1 % 11.6-14.6 [facility] Immature granulocytes/100 WBC (Bld) 0.600 % 0.0-0.9 [facility] Comment on above: IG% - Immature Granu locytes (promyelocytes, myelocytes and metamyelocytes) > 1% indicates that a LEFT SHIFT is Present. MCH (RBC) [Entitic mass] 28.4 pg 27.0-32.0 [facility] Nucleated RBC/100 WBC (Bld) [Ratio] 0 % 0-5 [facility] MCHC Auto (RBC) [Mass/Vol]Or dered By: Adam Ferraro on 04-01-2023 MCHC (RBC) [Mass/Vol] 32.1 g/dL 32-36 [facility] No Panel InformationOrdered By: Adam Ferraro on 04-01-2023 Estimated GFR (MDRD) Amer 49 mL/min >60 [facility] Comment on above: GFR Calc Estimated GFR (MDRD) Non-Af Amer 41 mL/min >60 [facility] Comment on above: Non- GFR Calc [place] Level < 0.20 mmol/L 0.60-1.20 [facility] Platelets bldOrdered By: Benoit Ferraro on 04-01-2023 Platelets (Bld) [#/Vol] 209 10*3/uL 150-450 [facility] Serum or plasma albumin you urement (mass/volume)Ordered By: Adam Ferraro on 04-01-2023 Albumin [Mass/Vol] 3.0 g/dL 3.2-5.0 [facility] Serum or plasma calcium you urement (mass/volume)Ordered By: Adam Ferraro on 04-01-2023 Calcium [Mass/Vol] 8.9 mg/dL 8.5-10.1 [facility] Serum or plasma creatinine m easurement (mass/volume)Ordered By: Adam Ferraro on 04-01-2023 Creatinine [Mass/Vol] 1.82 mg/dL 0.70-1.30 [facility] Comment on above: The validity of the calculated GFR & GFRAA in patients over 70 years has not been determined. Clinical correlation is essential. Serum or plasma urea nitroge n measurement (mass/volume)Ordered By: Adam Ferraro on 04-01-2023 Urea nitrogen [Mass/Vol] 25 mg/dL 7-18 [facility] Absolute lymphocyte countOrd ered By: Alfredo Phipps on 03-04-2023 Lymphocytes Auto (Unsp spec) [#/Vol] 2.18 10*3/uL 0.83-4.51 [facility] Basophil percentageOrdered B y: Alfredo Phipps on 03-04-2023 Basophil percentage 3.9 mg/dL 2.5-4.9 [facility] Basophils/100 WBC (Bld) 0.9 % 0-1 [facility] Chloride [Moles/Vol] 109 mmol/L 98-107 [facility] Eosinophils/100 WBC (Bld) 3.5 % 0-5 [facility] Glucose [Mass/Vol] 179 mg/dL 74-106 [facility] Comment on above: Fasting Glucose resu lt greater than or equal to 126 mg/dL suggests DIABETES MELLITUS per A.D.A. criteria. Neutrophils (Bld) [#/Vol] 6.1 10*3/uL 2.0-7.7 [facility] Neutrophils/100 WBC (Bld) 63.2 % 47-70 [facility] Potassium [Moles/Vol] 3.9 mmol/L 3.5-5.1 [facility] Sodium [Moles/Vol] 138 mmol/L 136-145 [facility] WBC (Bld) [#/Vol] 9.6 10*3/uL 4.4-11.0 [facility] Blood erythrocytes count (nu mber/volume)Ordered By: Alfredo Phipps on 03-04-2023 RBC (Bld) [#/Vol] 4.74 10*6/uL 4.6-6.2 [facility] Blood hemoglobin measurement (mass/volume)Ordered By: Alfredo Phipps on 03-04-2023 Hemoglobin (Bld) [Mass/Vol] 13.6 g/dL 13.0-16.5 [facility] Blood lymphocytes/100 leukoc ytesOrdered By: Alfredo Phipps on 03-04-2023 Lymphocytes/100 WBC (Bld) 22.6 % 19-41 [facility] Blood monocytes/100 leukocyt esOrdered By: Alfredo Phipps on 03-04-2023 Monocytes/100 WBC (Bld) 9.4 % 0-10 [facility] Blood platelet mean volumeOr dered By: Alfredo Phipps on 03-04-2023 Platelet mean volume (Bld) [Entitic vol] 9.7 fL 6.2-12.0 [facility] Determination of erythrocyte mean corpuscular volume (MCV)Ordered By: Alfredo Phipps on 03-04-2023 MCV (RBC) [Entitic vol] 90.3 fL 80-94 [facility] Hematocrit Auto (Bld) [Volum e fraction]Ordered By: Alfredo Phipps on 03-04-2023 Hematocrit (Bld) [Volume fraction] 42.8 % 40-54 [facility] Laboratory - Chemistry and C hemistry - challengeOrdered By: Alfredo Phipps on 03-04-2023 CO2 [Moles/Vol] 26.0 mmol/L 21.0-32.0 [facility] Urea nitrogen/Creatinine [Mass ratio] 13.9 mg/mg 10-20 [facility] Laboratory - Hematology and Cell countsOrdered By: Alfredo Phipps on 03-04-2023 Erythrocyte distribution width (RBC) [Entitic vol] 42.8 fL 35.1-43.9 [facility] Erythrocyte distribution width (RBC) [Ratio] 12.9 % 11.6-14.6 [facility] Immature granulocytes/100 WBC (Bld) 0.400 % 0.0-0.9 [facility] Comment on above: IG% - Immature Granu locytes (promyelocytes, myelocytes and metamyelocytes) > 1% indicates that a LEFT SHIFT is Present. MCH (RBC) [Entitic mass] 28.7 pg 27.0-32.0 [facility] Nucleated RBC/100 WBC (Bld) [Ratio] 0 % 0-5 [facility] MCHC Auto (RBC) [Mass/Vol]Or dered By: Alfredo Phipps on 03-04-2023 MCHC (RBC) [Mass/Vol] 31.8 g/dL 32-36 [facility] No Panel InformationOrdered By: Alrfedo Phipps on 03-04-2023 Estimated GFR (MDRD) Amer 55 mL/min >60 [facility] Comment on above: GFR Calc Estimated GFR (MDRD) Non-Af Amer 46 mL/min >60 [facility] Comment on above: Non- GFR Calc [place] Level 0.40 mmol/L 0.60-1.20 [facility] Platelets bldOrdered By: Jennifer Phipps on 03-04-2023 Platelets (Bld) [#/Vol] 207 10*3/uL 150-450 [facility] Serum or plasma albumin you urement (mass/volume)Ordered By: Alfredo Phipps on 03-04-2023 Albumin [Mass/Vol] 2.8 g/dL 3.2-5.0 [facility] Serum or plasma calcium you urement (mass/volume)Ordered By: Alfredo Phipps on 03-04-2023 Calcium [Mass/Vol] 9.2 mg/dL 8.5-10.1 [facility] Serum or plasma creatinine m easurement (mass/volume)Ordered By: Alfredo Phipps on 03-04-2023 Creatinine [Mass/Vol] 1.65 mg/dL 0.70-1.30 [facility] Comment on above: The validity of the calculated GFR & GFRAA in patients over 70 years has not been determined. Clinical correlation is essential. Serum or plasma urea nitroge n measurement (mass/volume)Ordered By: Alfredo Phipps on 03-04-2023 Urea nitrogen [Mass/Vol] 23 mg/dL 7-18 [facility] Serum or plasma uric acid me asurement (mass/volume)Ordered By: Alfredo Phipps on 02-25-2023 Urate [Mass/Vol] 5.6 mg/dL 3.5-7.2 [facility] Comment on above: The drugs N-Acetylcy steine and Metamizole may falsely depress this assay. Absolute lymphocyte countOrd ered By: Alfredo Phipps on 02-04-2023 Lymphocytes Auto (Unsp spec) [#/Vol] 2.03 10*3/uL 0.83-4.51 [facility] Basophil percentageOrdered B y: Alfredo Phipps on 02-04-2023 Basophil percentage 4.3 mg/dL 2.5-4.9 [facility] Basophils/100 WBC (Bld) 1.2 % 0-1 [facility] Chloride [Moles/Vol] 108 mmol/L 98-107 [facility] Eosinophils/100 WBC (Bld) 3.6 % 0-5 [facility] Glucose [Mass/Vol] 193 mg/dL 74-106 [facility] Comment on above: Fasting Glucose resu lt greater than or equal to 126 mg/dL suggests DIABETES MELLITUS per A.D.A. criteria. Neutrophils (Bld) [#/Vol] 6.1 10*3/uL 2.0-7.7 [facility] Neutrophils/100 WBC (Bld) 63.9 % 47-70 [facility] Potassium [Moles/Vol] 4.0 mmol/L 3.5-5.1 [facility] Sodium [Moles/Vol] 139 mmol/L 136-145 [facility] WBC (Bld) [#/Vol] 9.5 10*3/uL 4.4-11.0 [facility] Blood erythrocytes count (nu mber/volume)Ordered By: Alfredo Phipps on 02-04-2023 RBC (Bld) [#/Vol] 4.81 10*6/uL 4.6-6.2 [facility] Blood hemoglobin measurement (mass/volume)Ordered By: Alfredo Phipps on 02-04-2023 Hemoglobin (Bld) [Mass/Vol] 13.9 g/dL 13.0-16.5 [facility] Blood lymphocytes/100 leukoc ytesOrdered By: Alfredo Phipps on 02-04-2023 Lymphocytes/100 WBC (Bld) 21.4 % 19-41 [facility] Blood monocytes/100 leukocyt esOrdered By: Alfredo Phipps on 02-04-2023 Monocytes/100 WBC (Bld) 9.2 % 0-10 [facility] Blood platelet mean volumeOr dered By: Alfredo Phipps on 02-04-2023 Platelet mean volume (Bld) [Entitic vol] 9.4 fL 6.2-12.0 [facility] Determination of erythrocyte mean corpuscular volume (MCV)Ordered By: Alfredo Phipps on 02-04-2023 MCV (RBC) [Entitic vol] 94.2 fL 80-94 [facility] Hematocrit Auto (Bld) [Volum e fraction]Ordered By: Alfredo Phipps on 02-04-2023 Hematocrit (Bld) [Volume fraction] 45.3 % 40-54 [facility] Laboratory - Chemistry and C hemistry - challengeOrdered By: Alfredo Phipps on 02-04-2023 CO2 [Moles/Vol] 24.0 mmol/L 21.0-32.0 [facility] Urea nitrogen/Creatinine [Mass ratio] 14.6 mg/mg 10-20 [facility] Laboratory - Hematology and Cell countsOrdered By: Alfredo Phipps on 02-04-2023 Erythrocyte distribution width (RBC) [Entitic vol] 45.1 fL 35.1-43.9 [facility] Erythrocyte distribution width (RBC) [Ratio] 13.1 % 11.6-14.6 [facility] Immature granulocytes/100 WBC (Bld) 0.700 % 0.0-0.9 [facility] Comment on above: IG% - Immature Granu locytes (promyelocytes, myelocytes and metamyelocytes) > 1% indicates that a LEFT SHIFT is Present. MCH (RBC) [Entitic mass] 28.9 pg 27.0-32.0 [facility] Nucleated RBC/100 WBC (Bld) [Ratio] 0 % 0-5 [facility] Auto (RBC) [Mass/Vol]Or dered By: Alfredo Phipps on 02-04-2023 MCHC (RBC) [Mass/Vol] 30.7 g/dL 32-36 [facility] No Panel InformationOrdered By: Alfredo Phipps on 02-04-2023 Estimated GFR (MDRD) Amer 53 mL/min >60 [facility] Comment on above: GFR Calc Estimated GFR (MDRD) Non-Af Amer 44 mL/min >60 [facility] Comment on above: Non- GFR Calc [place] Level 0.50 mmol/L 0.60-1.20 [facility] Platelets bldOrdered By: Jennifer Phipps on 02-04-2023 Platelets (Bld) [#/Vol] 182 10*3/uL 150-450 [facility] Serum or plasma albumin you urement (mass/volume)Ordered By: Alfredo Phipps on 02-04-2023 Albumin [Mass/Vol] 2.9 g/dL 3.2-5.0 [facility] Serum or plasma calcium you urement (mass/volume)Ordered By: Alfredo Phipps on 02-04-2023 Calcium [Mass/Vol] 8.9 mg/dL 8.5-10.1 [facility] Serum or plasma creatinine m easurement (mass/volume)Ordered By: Alfredo Phipps on 02-04-2023 Creatinine [Mass/Vol] 1.71 mg/dL 0.70-1.30 [facility] Comment on above: The validity of the calculated GFR & GFRAA in patients over 70 years has not been determined. Clinical correlation is essential. Serum or plasma urea nitroge n measurement (mass/volume)Ordered By: Alfredo Phipps on 02-04-2023 Urea nitrogen [Mass/Vol] 25 mg/dL 7-18 [facility] Serum or plasma uric acid me asurement (mass/volume)Ordered By: Adam Ferraro on 01-25-2023 Urate [Mass/Vol] 5.8 mg/dL 3.5-7.2 [facility] Comment on above: The drugs N-Acetylcy steine and Metamizole may falsely depress this assay. Basophil percentageOrdered B y: Alfredo Phipps on 01-19-2023 Cholesterol [Mass/Vol] 160 mg/dL <200 [facility] Comment on above: <200 mg/dL Desirable 200-240 mg/dL Borderline >240 mg/dL High Risk Triglyceride [Mass/Vol] 322 mg/dL <199 [facility] Comment on above: The drugs N-Acetylcy steine and Metamizole may falsely depress this assay.Serum Triglycerides Reference Interval Normal <150 mg/dL Borderline high 150 - 199 mg/dL High 200 - 499 mg/dL Very High > or = 500 mg/dL Serum or plasma cholesterol in HDL measurement (mass/volume)Ordered By: Alfredo Phipps on 01-19-2023 Cholesterol in HDL [Mass/Vol] 38 mg/dL >40 [facility] Comment on above: The drugs N-Acetylcy steine and Metamizole may falsely depress this assay. Reference Range HDL <40 mg/dL Low HDL Cholesterol HDL >or= 60 mg/dL High HDL Cholesterol Serum or plasma cholesterol in VLDL measurement (mass/volume)Ordered By: Alfredo Phipps on 01-19-2023 Cholesterol in VLDL [Mass/Vol] 64 mg/dL 5-40 [facility] Serum or plasma low density lipoprotein (LDL) cholesterol measurement (mass/volume)Ordered By: Alfredo Phipps on 01-19-2023 Cholesterol in LDL [Mass/Vol] 58 mg/dL 0-130 [facility] Absolute lymphocyte countOrd ered By: Alfredo Phipps on 01-07-2023 Lymphocytes Auto (Unsp spec) [#/Vol] 2.02 10*3/uL 0.83-4.51 [facility] Basophil percentageOrdered B y: Alfredo Phipps on 01-07-2023 Basophil percentage 3.6 mg/dL 2.5-4.9 [facility] Basophils/100 WBC (Bld) 1.0 % 0-1 [facility] Chloride [Moles/Vol] 109 mmol/L 98-107 [facility] Eosinophils/100 WBC (Bld) 2.8 % 0-5 [facility] Glucose [Mass/Vol] 236 mg/dL 74-106 [facility] Comment on above: Glucose result great er than or equal to 200 mg/dLsuggests DIABETES MELLITUS per A.D.A. criteria. Neutrophils (Bld) [#/Vol] 5.8 10*3/uL 2.0-7.7 [facility] Neutrophils/100 WBC (Bld) 62.2 % 47-70 [facility] Potassium [Moles/Vol] 4.1 mmol/L 3.5-5.1 [facility] Sodium [Moles/Vol] 141 mmol/L 136-145 [facility] WBC (Bld) [#/Vol] 9.3 10*3/uL 4.4-11.0 [facility] Blood erythrocytes count (nu mber/volume)Ordered By: Alfredo Phipps on 01-07-2023 RBC (Bld) [#/Vol] 4.67 10*6/uL 4.6-6.2 [facility] Blood hemoglobin measurement (mass/volume)Ordered By: Alfredo Phipps on 01-07-2023 Hemoglobin (Bld) [Mass/Vol] 13.5 g/dL 13.0-16.5 [facility] Blood lymphocytes/100 leukoc ytesOrdered By: Alferdo Phipps on 01-07-2023 Lymphocytes/100 WBC (Bld) 21.8 % 19-41 [facility] Blood monocytes/100 leukocyt esOrdered By: Alfredo Phipps on 01-07-2023 Monocytes/100 WBC (Bld) 11.6 % 0-10 [facility] Blood platelet mean volumeOr dered By: Alfredo Phipps on 01-07-2023 Platelet mean volume (Bld) [Entitic vol] 9.8 fL 6.2-12.0 [facility] Determination of erythrocyte mean corpuscular volume (MCV)Ordered By: Alfredo Phipps on 01-07-2023 MCV (RBC) [Entitic vol] 89.7 fL 80-94 [facility] Hematocrit Auto (Bld) [Volum e fraction]Ordered By: Alfredo Phipps on 01-07-2023 Hematocrit (Bld) [Volume fraction] 41.9 % 40-54 [facility] Laboratory - Chemistry and C hemistry - challengeOrdered By: Alfredo Phipps on 01-07-2023 CO2 [Moles/Vol] 26.0 mmol/L 21.0-32.0 [facility] Urea nitrogen/Creatinine [Mass ratio] 13.4 mg/mg 10-20 [facility] Laboratory - Hematology and Cell countsOrdered By: Alfredo Phipps on 01-07-2023 Erythrocyte distribution width (RBC) [Entitic vol] 42.5 fL 35.1-43.9 [facility] Erythrocyte distribution width (RBC) [Ratio] 13.1 % 11.6-14.6 [facility] Immature granulocytes/100 WBC (Bld) 0.600 % 0.0-0.9 [facility] Comment on above: IG% - Immature Granu locytes (promyelocytes, myelocytes and metamyelocytes) > 1% indicates that a LEFT SHIFT is Present. MCH (RBC) [Entitic mass] 28.9 pg 27.0-32.0 [facility] Nucleated RBC/100 WBC (Bld) [Ratio] 0 % 0-5 [facility] MCHC Auto (RBC) [Mass/Vol]Or dered By: Alfredo Phipps on 01-07-2023 MCHC (RBC) [Mass/Vol] 32.2 g/dL 32-36 [facility] No Panel InformationOrdered By: Alfredo Phipps on 01-07-2023 Estimated GFR (MDRD) Amer 48 mL/min >60 [facility] Comment on above: GFR Calc Estimated GFR (MDRD) Non-Af Amer 40 mL/min >60 [facility] Comment on above: Non- GFR Calc [place] Level 0.30 mmol/L 0.60-1.20 [facility] Platelets bldOrdered By: Jennifer Phipps on 01-07-2023 Platelets (Bld) [#/Vol] 203 10*3/uL 150-450 [facility] Serum or plasma albumin you urement (mass/volume)Ordered By: Alfredo Phipps on 01-07-2023 Albumin [Mass/Vol] 2.9 g/dL 3.2-5.0 [facility] Serum or plasma calcium you urement (mass/volume)Ordered By: Alfredo Phipps on 01-07-2023 Calcium [Mass/Vol] 9.0 mg/dL 8.5-10.1 [facility] Serum or plasma creatinine m easurement (mass/volume)Ordered By: Alfredo Phipps on 01-07-2023 Creatinine [Mass/Vol] 1.86 mg/dL 0.70-1.30 [facility] Comment on above: The validity of the calculated GFR & GFRAA in patients over 70 years has not been determined. Clinical correlation is essential. Serum or plasma urea nitroge n measurement (mass/volume)Ordered By: Alfredo Phipps on 01-07-2023 Urea nitrogen [Mass/Vol] 25 mg/dL 7-18 [facility] Serum or plasma uric acid me asurement (mass/volume)Ordered By: Adam Ferraro on 12-28-2022 Urate [Mass/Vol] 5.9 mg/dL 3.5-7.2 [facility] Comment on above: The drugs N-Acetylcy steine and Metamizole may falsely depress this assay. Urine creatinine measurement (mass/volume)Ordered By: Adam Ferraro on 12-15-2022 Creatinine (U) [Mass/Vol] 141.00 mg/dL NO RANGE EST. [facility] Urine protein measurement (m ass/volume)Ordered By: Adam Ferraro on 12-15-2022 Protein (U) [Mass/Vol] 29.9 mg/dL 0.0-11.8 [facility] Urine protein/creatinine mas s ratioOrdered By: Adam Ferraro on 12-15-2022 Protein/Creatinine (U) [Mass ratio] 212 mg/g CRE 0-200 [facility] Absolute lymphocyte countOrd ered By: Adam Ferraro on 12-10-2022 Lymphocytes Auto (Unsp spec) [#/Vol] 1.96 10*3/uL 0.83-4.51 [facility] Basophil percentageOrdered B y: Adam Ferraro on 12-10-2022 Basophil percentage 4.0 mg/dL 2.5-4.9 [facility] Basophils/100 WBC (Bld) 1.2 % 0-1 [facility] Chloride [Moles/Vol] 106 mmol/L 98-107 [facility] Eosinophils/100 WBC (Bld) 3.6 % 0-5 [facility] Glucose [Mass/Vol] 155 mg/dL 74-106 [facility] Comment on above: Fasting Glucose resu lt greater than or equal to 126 mg/dL suggests DIABETES MELLITUS per A.D.A. criteria. Neutrophils (Bld) [#/Vol] 4.9 10*3/uL 2.0-7.7 [facility] Neutrophils/100 WBC (Bld) 60.1 % 47-70 [facility] Potassium [Moles/Vol] 4.1 mmol/L 3.5-5.1 [facility] Sodium [Moles/Vol] 140 mmol/L 136-145 [facility] WBC (Bld) [#/Vol] 8.1 10*3/uL 4.4-11.0 [facility] Blood erythrocytes count (nu mber/volume)Ordered By: Adam Ferraro on 12-10-2022 RBC (Bld) [#/Vol] 4.96 10*6/uL 4.6-6.2 [facility] Blood hemoglobin measurement (mass/volume)Ordered By: Adam Ferraro on 12-10-2022 Hemoglobin (Bld) [Mass/Vol] 14.4 g/dL 13.0-16.5 [facility] Blood lymphocytes/100 leukoc ytesOrdered By: Adam Ferraro on 12-10-2022 Lymphocytes/100 WBC (Bld) 24.1 % 19-41 [facility] Blood monocytes/100 leukocyt esOrdered By: Adam Ferraro on 12-10-2022 Monocytes/100 WBC (Bld) 10.6 % 0-10 [facility] Blood platelet mean volumeOr dered By: Adam Ferraro on 12-10-2022 Platelet mean volume (Bld) [Entitic vol] 9.8 fL 6.2-12.0 [facility] Determination of erythrocyte mean corpuscular volume (MCV)Ordered By: Adam Ferraro on 12-10-2022 MCV (RBC) [Entitic vol] 89.5 fL 80-94 [facility] Hematocrit Auto (Bld) [Volum e fraction]Ordered By: Adam Ferraro on 12-10-2022 Hematocrit (Bld) [Volume fraction] 44.4 % 40-54 [facility] Laboratory - Chemistry and C hemistry - challengeOrdered By: Adam Ferraro on 12-10-2022 CO2 [Moles/Vol] 26.0 mmol/L 21.0-32.0 [facility] Urea nitrogen/Creatinine [Mass ratio] 10.1 mg/mg 10-20 [facility] Laboratory - Hematology and Cell countsOrdered By: Adam Ferraro on 12-10-2022 Erythrocyte distribution width (RBC) [Entitic vol] 42.6 fL 35.1-43.9 [facility] Erythrocyte distribution width (RBC) [Ratio] 13.0 % 11.6-14.6 [facility] Immature granulocytes/100 WBC (Bld) 0.400 % 0.0-0.9 [facility] Comment on above: IG% - Immature Granu locytes (promyelocytes, myelocytes and metamyelocytes) > 1% indicates that a LEFT SHIFT is Present. MCH (RBC) [Entitic mass] 29.0 pg 27.0-32.0 [facility] Nucleated RBC/100 WBC (Bld) [Ratio] 0 % 0-5 [facility] MCHC Auto (RBC) [Mass/Vol]Or dered By: Adam Ferraro on 12-10-2022 MCHC (RBC) [Mass/Vol] 32.4 g/dL 32-36 [facility] No Panel InformationOrdered By: Adam Ferraro on 12-10-2022 Estimated GFR (MDRD) Amer 50 mL/min >60 [facility] Comment on above: GFR Calc Estimated GFR (MDRD) Non-Af Amer 41 mL/min >60 [facility] Comment on above: Non- GFR Calc [place] Level 0.50 mmol/L 0.60-1.20 [facility] Platelets bldOrdered By: Benoit Ferraro on 12-10-2022 Platelets (Bld) [#/Vol] 213 10*3/uL 150-450 [facility] Serum or plasma albumin you urement (mass/volume)Ordered By: Adam Ferraro on 12-10-2022 Albumin [Mass/Vol] 2.8 g/dL 3.2-5.0 [facility] Serum or plasma calcium you urement (mass/volume)Ordered By: Adam Ferraro on 12-10-2022 Calcium [Mass/Vol] 8.8 mg/dL 8.5-10.1 [facility] Serum or plasma creatinine m easurement (mass/volume)Ordered By: Adam Ferraro on 12-10-2022 Creatinine [Mass/Vol] 1.79 mg/dL 0.70-1.30 [facility] Comment on above: The validity of the calculated GFR & GFRAA in patients over 70 years has not been determined. Clinical correlation is essential. Serum or plasma urea nitroge n measurement (mass/volume)Ordered By: Adam Ferraro on 12-10-2022 Urea nitrogen [Mass/Vol] 18 mg/dL 7-18 [facility] Urine creatinine measurement (mass/volume)Ordered By: Adam Ferraro on 11-17-2022 Creatinine (U) [Mass/Vol] 74.70 mg/dL NO RANGE EST. [facility] Urine protein measurement (m ass/volume)Ordered By: Adam Ferraro on 11-17-2022 Protein (U) [Mass/Vol] 16.5 mg/dL 0.0-11.8 [facility] Urine protein/creatinine mas s ratioOrdered By: Adam Ferraro on 11-17-2022 Protein/Creatinine (U) [Mass ratio] 221 mg/g CRE 0-200 [facility] Absolute lymphocyte countOrd ered By: Alfredo Phipps on 11-12-2022 Lymphocytes Auto (Unsp spec) [#/Vol] 2.11 10*3/uL 0.83-4.51 [facility] Basophil percentageOrdered B y: Alfredo Phipps on 11-12-2022 Basophil percentage 3.3 mg/dL 2.5-4.9 [facility] Basophils/100 WBC (Bld) 0.7 % 0-1 [facility] Chloride [Moles/Vol] 106 mmol/L 98-107 [facility] Eosinophils/100 WBC (Bld) 2.4 % 0-5 [facility] Glucose [Mass/Vol] 169 mg/dL 74-106 [facility] Comment on above: Fasting Glucose resu lt greater than or equal to 126 mg/dL suggests DIABETES MELLITUS per A.D.A. criteria. Neutrophils (Bld) [#/Vol] 6.1 10*3/uL 2.0-7.7 [facility] Neutrophils/100 WBC (Bld) 63.5 % 47-70 [facility] Potassium [Moles/Vol] 3.5 mmol/L 3.5-5.1 [facility] Sodium [Moles/Vol] 138 mmol/L 136-145 [facility] WBC (Bld) [#/Vol] 9.6 10*3/uL 4.4-11.0 [facility] Blood erythrocytes count (nu mber/volume)Ordered By: Alfredo Phipps on 11-12-2022 RBC (Bld) [#/Vol] 4.67 10*6/uL 4.6-6.2 [facility] Blood hemoglobin measurement (mass/volume)Ordered By: Alfredo Phipps on 11-12-2022 Hemoglobin (Bld) [Mass/Vol] 13.9 g/dL 13.0-16.5 [facility] Blood lymphocytes/100 leukoc ytesOrdered By: Alfredo Phipps on 11-12-2022 Lymphocytes/100 WBC (Bld) 21.9 % 19-41 [facility] Blood monocytes/100 leukocyt esOrdered By: Alfredo Phipps on 11-12-2022 Monocytes/100 WBC (Bld) 10.8 % 0-10 [facility] Blood platelet mean volumeOr dered By: Alfredo Phipps on 11-12-2022 Platelet mean volume (Bld) [Entitic vol] 9.8 fL 6.2-12.0 [facility] Determination of erythrocyte mean corpuscular volume (MCV)Ordered By: Alfredo Phipps on 11-12-2022 MCV (RBC) [Entitic vol] 89.1 fL 80-94 [facility] Hematocrit Auto (Bld) [Volum e fraction]Ordered By: Alfredo Phipps on 11-12-2022 Hematocrit (Bld) [Volume fraction] 41.6 % 40-54 [facility] Laboratory - Chemistry and C hemistry - challengeOrdered By: Alfredo Phipps on 11-12-2022 CO2 [Moles/Vol] 25.0 mmol/L 21.0-32.0 [facility] Urea nitrogen/Creatinine [Mass ratio] 11.4 mg/mg 10-20 [facility] Laboratory - Hematology and Cell countsOrdered By: Alfredo Phipps on 11-12-2022 Erythrocyte distribution width (RBC) [Entitic vol] 43.2 fL 35.1-43.9 [facility] Erythrocyte distribution width (RBC) [Ratio] 13.2 % 11.6-14.6 [facility] Immature granulocytes/100 WBC (Bld) 0.700 % 0.0-0.9 [facility] Comment on above: IG% - Immature Granu locytes (promyelocytes, myelocytes and metamyelocytes) > 1% indicates that a LEFT SHIFT is Present. MCH (RBC) [Entitic mass] 29.8 pg 27.0-32.0 [facility] Nucleated RBC/100 WBC (Bld) [Ratio] 0 % 0-5 [facility] MCHC Auto (RBC) [Mass/Vol]Or dered By: Alfredo Phipps on 11-12-2022 MCHC (RBC) [Mass/Vol] 33.4 g/dL 32-36 [facility] No Panel InformationOrdered By: Alfredo Phipps on 11-12-2022 Estimated GFR (MDRD) Amer 48 mL/min >60 [facility] Comment on above: GFR Calc Estimated GFR (MDRD) Non-Af Amer 40 mL/min >60 [facility] Comment on above: Non- GFR Calc [place] Level 0.40 mmol/L 0.60-1.20 [facility] Platelets bldOrdered By: Jennifer Phipps on 11-12-2022 Platelets (Bld) [#/Vol] 200 10*3/uL 150-450 [facility] Serum or plasma albumin you urement (mass/volume)Ordered By: Alfredo Phipps on 11-12-2022 Albumin [Mass/Vol] 2.9 g/dL 3.2-5.0 [facility] Serum or plasma calcium you urement (mass/volume)Ordered By: Alfredo Phipps on 11-12-2022 Calcium [Mass/Vol] 8.7 mg/dL 8.5-10.1 [facility] Serum or plasma creatinine m easurement (mass/volume)Ordered By: Alfredo Phipps on 11-12-2022 Creatinine [Mass/Vol] 1.85 mg/dL 0.70-1.30 [facility] Comment on above: The validity of the calculated GFR & GFRAA in patients over 70 years has not been determined. Clinical correlation is essential. Serum or plasma urea nitroge n measurement (mass/volume)Ordered By: Alfredo Phipps on 11-12-2022 Urea nitrogen [Mass/Vol] 21 mg/dL 7-18 [facility] Serum or plasma uric acid me asurement (mass/volume)Ordered By: Alfredo Phipps on 10-27-2022 Urate [Mass/Vol] 6.4 mg/dL 3.5-7.2 [facility] Comment on above: The drugs N-Acetylcy steine and Metamizole may falsely depress this assay. Absolute lymphocyte countOrd ered By: Alfredo Phipps on 10-15-2022 Lymphocytes Auto (Unsp spec) [#/Vol] 2.30 10*3/uL 0.83-4.51 [facility] Basophil percentageOrdered B y: Alfredo Phipps on 10-15-2022 Basophil percentage 4.2 mg/dL 2.5-4.9 [facility] Basophils/100 WBC (Bld) 1.0 % 0-1 [facility] Chloride [Moles/Vol] 108 mmol/L 98-107 [facility] Eosinophils/100 WBC (Bld) 3.2 % 0-5 [facility] Glucose [Mass/Vol] 168 mg/dL 74-106 [facility] Comment on above: Fasting Glucose resu lt greater than or equal to 126 mg/dL suggests DIABETES MELLITUS per A.D.A. criteria. Neutrophils (Bld) [#/Vol] 4.8 10*3/uL 2.0-7.7 [facility] Neutrophils/100 WBC (Bld) 58.3 % 47-70 [facility] Potassium [Moles/Vol] 4.1 mmol/L 3.5-5.1 [facility] Comment on above: Slight Hemolysis, Re sult may be falsely increased. Sodium [Moles/Vol] 140 mmol/L 136-145 [facility] WBC (Bld) [#/Vol] 8.3 10*3/uL 4.4-11.0 [facility] Blood erythrocytes count (nu mber/volume)Ordered By: Alfredo Phipps on 10-15-2022 RBC (Bld) [#/Vol] 4.81 10*6/uL 4.6-6.2 [facility] Blood hemoglobin measurement (mass/volume)Ordered By: Alfredo Phipps on 10-15-2022 Hemoglobin (Bld) [Mass/Vol] 13.9 g/dL 13.0-16.5 [facility] Blood lymphocytes/100 leukoc ytesOrdered By: Alfredo Phipps on 10-15-2022 Lymphocytes/100 WBC (Bld) 27.6 % 19-41 [facility] Blood monocytes/100 leukocyt esOrdered By: Alfredo Phipps on 10-15-2022 Monocytes/100 WBC (Bld) 9.1 % 0-10 [facility] Blood platelet mean volumeOr dered By: Alfredo Phipps on 10-15-2022 Platelet mean volume (Bld) [Entitic vol] 10.1 fL 6.2-12.0 [facility] Determination of erythrocyte mean corpuscular volume (MCV)Ordered By: Alfredo Phipps on 10-15-2022 MCV (RBC) [Entitic vol] 89.4 fL 80-94 [facility] Hematocrit Auto (Bld) [Volum e fraction]Ordered By: Alfredo Phipps on 10-15-2022 Hematocrit (Bld) [Volume fraction] 43.0 % 40-54 [facility] Laboratory - Chemistry and C hemistry - challengeOrdered By: Alfredo Phipps on 10-15-2022 CO2 [Moles/Vol] 28.0 mmol/L 21.0-32.0 [facility] Urea nitrogen/Creatinine [Mass ratio] 11.3 mg/mg 10-20 [facility] Laboratory - Hematology and Cell countsOrdered By: Alfredo Phipps on 10-15-2022 Erythrocyte distribution width (RBC) [Entitic vol] 42.9 fL 35.1-43.9 [facility] Erythrocyte distribution width (RBC) [Ratio] 13.2 % 11.6-14.6 [facility] Immature granulocytes/100 WBC (Bld) 0.800 % 0.0-0.9 [facility] Comment on above: IG% - Immature Granu locytes (promyelocytes, myelocytes and metamyelocytes) > 1% indicates that a LEFT SHIFT is Present. MCH (RBC) [Entitic mass] 28.9 pg 27.0-32.0 [facility] Nucleated RBC/100 WBC (Bld) [Ratio] 0 % 0-5 [facility] Auto (RBC) [Mass/Vol]Or dered By: Alfredo Phipps on 10-15-2022 MCHC (RBC) [Mass/Vol] 32.3 g/dL 32-36 [facility] No Panel InformationOrdered By: Alfredo Phipps on 10-15-2022 Estimated GFR (MDRD) Amer 46 mL/min >60 [facility] Comment on above: GFR Calc Estimated GFR (MDRD) Non-Af Amer 38 mL/min >60 [facility] Comment on above: Non- GFR Calc [place] Level 0.50 mmol/L 0.60-1.20 [facility] Platelets bldOrdered By: Jennifer Phipps on 10-15-2022 Platelets (Bld) [#/Vol] 200 10*3/uL 150-450 [facility] Serum or plasma albumin you urement (mass/volume)Ordered By: Alfredo Phipps on 10-15-2022 Albumin [Mass/Vol] 2.9 g/dL 3.2-5.0 [facility] Serum or plasma calcium you urement (mass/volume)Ordered By: Alfredo Phipps on 10-15-2022 Calcium [Mass/Vol] 9.1 mg/dL 8.5-10.1 [facility] Serum or plasma creatinine m easurement (mass/volume)Ordered By: Alfredo Phipps on 10-15-2022 Creatinine [Mass/Vol] 1.94 mg/dL 0.70-1.30 [facility] Comment on above: The validity of the calculated GFR & GFRAA in patients over 70 years has not been determined. Clinical correlation is essential. Serum or plasma urea nitroge n measurement (mass/volume)Ordered By: Alfredo Phipps on 10-15-2022 Urea nitrogen [Mass/Vol] 22 mg/dL 7-18 [facility] Serum or plasma uric acid me asurement (mass/volume)Ordered By: Alfredo Phipps on 09-27-2022 Urate [Mass/Vol] 7.0 mg/dL 3.5-7.2 [facility] Comment on above: The drugs N-Acetylcy steine and Metamizole may falsely depress this assay. Absolute lymphocyte countOrd ered By: Adam Ferraro on 09-17-2022 Lymphocytes Auto (Unsp spec) [#/Vol] 2.69 10*3/uL 0.83-4.51 [facility] Basophil percentageOrdered B y: Adam Ferraro on 09-17-2022 Basophil percentage 3.8 mg/dL 2.5-4.9 [facility] Basophils/100 WBC (Bld) 0.9 % 0-1 [facility] Chloride [Moles/Vol] 105 mmol/L 98-107 [facility] Eosinophils/100 WBC (Bld) 3.2 % 0-5 [facility] Glucose [Mass/Vol] 141 mg/dL 74-106 [facility] Comment on above: Fasting Glucose resu lt greater than or equal to 126 mg/dL suggests DIABETES MELLITUS per A.D.A. criteria. Neutrophils (Bld) [#/Vol] 5.1 10*3/uL 2.0-7.7 [facility] Neutrophils/100 WBC (Bld) 56.1 % 47-70 [facility] Potassium [Moles/Vol] 3.8 mmol/L 3.5-5.1 [facility] Sodium [Moles/Vol] 139 mmol/L 136-145 [facility] WBC (Bld) [#/Vol] 9.0 10*3/uL 4.4-11.0 [facility] Blood erythrocytes count (nu mber/volume)Ordered By: Adam Ferraro on 09-17-2022 RBC (Bld) [#/Vol] 4.99 10*6/uL 4.6-6.2 [facility] Blood hemoglobin measurement (mass/volume)Ordered By: Adam Ferraro on 09-17-2022 Hemoglobin (Bld) [Mass/Vol] 14.8 g/dL 13.0-16.5 [facility] Blood lymphocytes/100 leukoc ytesOrdered By: Adam Ferraro on 09-17-2022 Lymphocytes/100 WBC (Bld) 29.8 % 19-41 [facility] Blood monocytes/100 leukocyt esOrdered By: Adam Ferraro on 09-17-2022 Monocytes/100 WBC (Bld) 9.4 % 0-10 [facility] Blood platelet mean volumeOr dered By: Adam Ferraro on 09-17-2022 Platelet mean volume (Bld) [Entitic vol] 10.2 fL 6.2-12.0 [facility] Determination of erythrocyte mean corpuscular volume (MCV)Ordered By: Adam Ferraro on 09-17-2022 MCV (RBC) [Entitic vol] 88.6 fL 80-94 [facility] Hematocrit Auto (Bld) [Volum e fraction]Ordered By: Adam Ferraro on 09-17-2022 Hematocrit (Bld) [Volume fraction] 44.2 % 40-54 [facility] Laboratory - Chemistry and C hemistry - challengeOrdered By: Adam Ferraro on 09-17-2022 CO2 [Moles/Vol] 26.0 mmol/L 21.0-32.0 [facility] Urea nitrogen/Creatinine [Mass ratio] 11.4 mg/mg 10-20 [facility] Laboratory - Hematology and Cell countsOrdered By: Adam Ferraro on 09-17-2022 Erythrocyte distribution width (RBC) [Entitic vol] 42.8 fL 35.1-43.9 [facility] Erythrocyte distribution width (RBC) [Ratio] 13.2 % 11.6-14.6 [facility] Immature granulocytes/100 WBC (Bld) 0.600 % 0.0-0.9 [facility] Comment on above: IG% - Immature Granu locytes (promyelocytes, myelocytes and metamyelocytes) > 1% indicates that a LEFT SHIFT is Present. MCH (RBC) [Entitic mass] 29.7 pg 27.0-32.0 [facility] Nucleated RBC/100 WBC (Bld) [Ratio] 0 % 0-5 [facility] MCHC Auto (RBC) [Mass/Vol]Or dered By: Adam Ferraro on 09-17-2022 MCHC (RBC) [Mass/Vol] 33.5 g/dL 32-36 [facility] No Panel InformationOrdered By: Adam Ferraro on 09-17-2022 [place] Level 0.50 mmol/L 0.60-1.20 [facility] Estimated GFR (MDRD) Amer 51 mL/min >60 [facility] Comment on above: GFR Calc Estimated GFR (MDRD) Non-Af Amer 42 mL/min >60 [facility] Comment on above: Non- GFR Calc Platelets bldOrdered By: Benoit loni Jasmine on 09-17-2022 Platelets (Bld) [#/Vol] 178 10*3/uL 150-450 [facility] Serum or plasma albumin you urement (mass/volume)Ordered By: Adam Ferraro on 09-17-2022 Albumin [Mass/Vol] 3.0 g/dL 3.2-5.0 [facility] Serum or plasma calcium you urement (mass/volume)Ordered By: Adam Ferraro on 09-17-2022 Calcium [Mass/Vol] 9.0 mg/dL 8.5-10.1 [facility] Serum or plasma creatinine m easurement (mass/volume)Ordered By: Adam Ferraro on 09-17-2022 Creatinine [Mass/Vol] 1.76 mg/dL 0.70-1.30 [facility] Comment on above: The validity of the calculated GFR & GFRAA in patients over 70 years has not been determined. Clinical correlation is essential. Serum or plasma urea nitroge n measurement (mass/volume)Ordered By: Adam Ferraro on 09-17-2022 Urea nitrogen [Mass/Vol] 20 mg/dL 7-18 [facility] Urine creatinine measurement (mass/volume)Ordered By: Adam Ferraro on 09-17-2022 Creatinine (U) [Mass/Vol] 128.00 mg/dL NO RANGE EST. [facility] Urine protein measurement (m ass/volume)Ordered By: Adam Ferraro on 09-17-2022 Protein (U) [Mass/Vol] 20.9 mg/dL 0.0-11.8 [facility] Urine protein/creatinine mas s ratioOrdered By: Adam Ferraro on 09-17-2022 Protein/Creatinine (U) [Mass ratio] 163 mg/g CRE 0-200 [facility] Serum or plasma uric acid me asurement (mass/volume)Ordered By: Adam Ferraro on 08-27-2022 Urate [Mass/Vol] 6.4 mg/dL 3.5-7.2 [facility] Comment on above: The drugs N-Acetylcy steine and Metamizole may falsely depress this assay. No Panel InformationOrdered By: Adam Ferraro on 08-23-2022 [place] Level 0.40 mmol/L 0.60-1.20 [facility] Culture, urineOrdered By: Chan Fiore on 08-15-2022 Bacteria identified Cx Nom (U) Streptococcus mitis [facility] Absolute lymphocyte countOrd ered By: Alfredo Phipps on 08-12-2022 Lymphocytes Auto (Unsp spec) [#/Vol] 2.09 10*3/uL 0.83-4.51 [facility] Basophil percentageOrdered B y: Alfredo Phipps on 08-12-2022 Basophil percentage 3.6 mg/dL 2.5-4.9 [facility] Basophils/100 WBC (Bld) 0.9 % 0-1 [facility] Chloride [Moles/Vol] 107 mmol/L 98-107 [facility] Eosinophils/100 WBC (Bld) 2.8 % 0-5 [facility] Glucose [Mass/Vol] 151 mg/dL 74-106 [facility] Comment on above: Fasting Glucose resu lt greater than or equal to 126 mg/dL suggests DIABETES MELLITUS per A.D.A. criteria. Neutrophils (Bld) [#/Vol] 5.5 10*3/uL 2.0-7.7 [facility] Neutrophils/100 WBC (Bld) 63.4 % 47-70 [facility] Potassium [Moles/Vol] 4.0 mmol/L 3.5-5.1 [facility] Sodium [Moles/Vol] 140 mmol/L 136-145 [facility] WBC (Bld) [#/Vol] 8.7 10*3/uL 4.4-11.0 [facility] Basophil percentage 10-25 SEEN /hpf 0-5 [facility] Bilirubin Test strip Ql (U)O rdered By: Alfredo Phipps on 08-12-2022 Bilirubin Ql (U) Negative Negative [facility] Blood erythrocytes count (nu mber/volume)Ordered By: Alfredo Phipps on 08-12-2022 RBC (Bld) [#/Vol] 4.92 10*6/uL 4.6-6.2 [facility] Blood hemoglobin measurement (mass/volume)Ordered By: Alfredo Phipps on 08-12-2022 Hemoglobin (Bld) [Mass/Vol] 14.5 g/dL 13.0-16.5 [facility] Blood lymphocytes/100 leukoc ytesOrdered By: Alfredo Phipps on 08-12-2022 Lymphocytes/100 WBC (Bld) 24.1 % 19-41 [facility] Blood monocytes/100 leukocyt esOrdered By: Alfredo Phipps on 08-12-2022 Monocytes/100 WBC (Bld) 8.3 % 0-10 [facility] Blood platelet mean volumeOr dered By: Alfredo Phipps on 08-12-2022 Platelet mean volume (Bld) [Entitic vol] 9.8 fL 6.2-12.0 [facility] Determination of erythrocyte mean corpuscular volume (MCV)Ordered By: Alfredo Phipps on 08-12-2022 MCV (RBC) [Entitic vol] 91.1 fL 80-94 [facility] Hematocrit Auto (Bld) [Volum e fraction]Ordered By: Alfredo Phipps on 08-12-2022 Hematocrit (Bld) [Volume fraction] 44.8 % 40-54 [facility] Ketones Test strip Ql (U)Ord ered By: Alfredo Phipps on 08-12-2022 Ketones Ql (U) Negative Negative [facility] Laboratory - Chemistry and C hemistry - challengeOrdered By: Alfredo Phipps on 08-12-2022 CO2 [Moles/Vol] 25.0 mmol/L 21.0-32.0 [facility] Urea nitrogen/Creatinine [Mass ratio] 14.9 mg/mg 10-20 [facility] Laboratory - Hematology and Cell countsOrdered By: Alfredo Phipps on 08-12-2022 Erythrocyte distribution width (RBC) [Entitic vol] 43.3 fL 35.1-43.9 [facility] Erythrocyte distribution width (RBC) [Ratio] 12.9 % 11.6-14.6 [facility] Immature granulocytes/100 WBC (Bld) 0.500 % 0.0-0.9 [facility] Comment on above: IG% - Immature Granu locytes (promyelocytes, myelocytes and metamyelocytes) > 1% indicates that a LEFT SHIFT is Present. MCH (RBC) [Entitic mass] 29.5 pg 27.0-32.0 [facility] Nucleated RBC/100 WBC (Bld) [Ratio] 0 % 0-[facility] ([facility] [Mass/Vol]Or dered By: Alfredo Phipps on 08-12-2022 MCHC (RBC) [Mass/Vol] 32.4 g/dL 32-36 [facility] Mucus LM Ql (Urine sed)Order ed By: Alfredo Phipps on 08-12-2022 Mucus Ql (Urine sed) Not Reportable [facility] Nitrite Test strip Ql (U)Ord ered By: Alfredo Phipps on 08-12-2022 Nitrite Ql (U) Negative Negative [facility] No Panel InformationOrdered By: Alfredo Phipps on 08-12-2022 Estimated GFR (MDRD) Amer 54 mL/min >60 [facility] Comment on above: GFR Calc Estimated GFR (MDRD) Non-Af Amer 45 mL/min >60 [facility] Comment on above: Non- GFR Calc Platelets bldOrdered By: Pet shonda Phipps on 08-12-2022 Platelets (Bld) [#/Vol] 238 10*3/uL 150-450 [facility] Protein Test strip Ql (U)Ord ered By: Alfredo Phipps on 08-12-2022 Protein Ql (U) 15 mg/dl Negative [facility] Serum or plasma albumin you urement (mass/volume)Ordered By: Alfredo Phipps on 08-12-2022 Albumin [Mass/Vol] 2.9 g/dL 3.2-5.0 [facility] Serum or plasma calcium you urement (mass/volume)Ordered By: Alfredo Phipps on 08-12-2022 Calcium [Mass/Vol] 9.2 mg/dL 8.5-10.1 [facility] Serum or plasma creatinine m easurement (mass/volume)Ordered By: Alfredo Phipps on 08-12-2022 Creatinine [Mass/Vol] 1.68 mg/dL 0.70-1.30 [facility] Comment on above: The validity of the calculated GFR & GFRAA in patients over 70 years has not been determined. Clinical correlation is essential. Serum or plasma urea nitroge n measurement (mass/volume)Ordered By: Alfredo Phipps on 08-12-2022 Urea nitrogen [Mass/Vol] 25 mg/dL 7-18 [facility] Squamous epithelial cells de tection in urine sediment by light microscopyOrdered By: Alfredo Phipps on 08-12-2022 Epithelial cells.squamous LM Ql (Urine sed) 0-5 SEEN /hpf 0-5 [facility] Urine blood detectionOrdered By: Alfredo Phipps on 08-12-2022 RBC Ql (U) Negative Negative [facility] RBC Ql (U) 0 SEEN /hpf 0-5 [facility] Urine clarityOrdered By: Jennifer Phipps on 08-12-2022 Clarity (U) Clear Clear [facility] Urine color determinationOrd ered By: Alfredo Phipps on 08-12-2022 Color (U) Yellow Yellow [facility] Urine creatinine measurement (mass/volume)Ordered By: Alfredo Phipps on 08-12-2022 Creatinine (U) [Mass/Vol] 102.00 mg/dL NO RANGE EST. [facility] Urine glucose detectionOrder ed By: Alfredo Phipps on 08-12-2022 Glucose Ql (U) Normal mg/dl Normal [facility] Urine leukocyte esterase det ection by dipstickOrdered By: Alfredo Phipps on 08-12-2022 Leukocyte esterase Test strip Ql (U) 500 /ul Negative [facility] Urine pHOrdered By: Alfredo saha on 08-12-2022 pH (U) 6.0 [pH] 5.0 - 8.0 [facility] Urine protein measurement (m ass/volume)Ordered By: Alfredo Phipps on 08-12-2022 Protein (U) [Mass/Vol] 19.9 mg/dL 0.0-11.8 [facility] Urine protein/creatinine mas s ratioOrdered By: Alfredo Phipps on 08-12-2022 Protein/Creatinine (U) [Mass ratio] 195 mg/g CRE 0-200 [facility] Urine sediment bacteria coun t by microscopy (number/high power field)Ordered By: Alfredo Phipps on 08-12-2022 Bacteria LM.HPF (Urine sed) [#/Area] RARE /hpf None Seen [facility] Urine specific gravity measu rementOrdered By: Alfredo Phipps on 08-12-2022 Specific gravity (U) [Rel density] 1.015 1.002-1.030 [facility] Urobilinogen Auto test strip Ql (U)Ordered By: Alfredo Phipps on 08-12-2022 Urobilinogen Ql (U) Normal mg/dl Normal [facility] No Panel Informationon 07-28 [place] Level 0.60 mmol/L 0.60-1.20 [facility] Work Phone: Serum or plasma uric acid me asurement (mass/volume)on 07-28-2022 Urate [Mass/Vol] 6.3 mg/dL 3.5-7.2 [facility] Work Phone: Comment on above: The drugs N-Acetylcy steine and Metamizole may falsely depress this assay. URINALYSIS, REFLEX MICROSCOP ICon 07-27-2022 Bilirubin Ql (U) Negative Negative [facility] Clarity (Unsp spec) Clear Clear [facility] Color (U) Colorless Yellow [facility] Glucose Test strip (U) [Mass/Vol] Negative Negative [facility] Hemoglobin Ql (U) Negative Negative [facility] Ketones Ql (U) Negative Negative [facility] Leukocyte esterase Test strip Ql (U) Negative Negative [facility] Nitrite Ql (U) Negative Negative [facility] pH (U) 6.5 [pH] 5.0 - 8.0 [facility] Protein (U) [Mass/Vol] Negative Negative [facility] Specific gravity (U) [Rel density] 1.009 1.005 - 1.030 [facility] Urobilinogen Ql (U) Negative Negative [facility] Absolute lymphocyte counton 07-15-2022 Lymphocytes Auto (Unsp spec) [#/Vol] 1.93 10*3/uL 0.83-4.51 [facility] Work Phone: Basophil percentageon 2021 Basophil percentage 3.9 mg/dL 2.5-4.9 [facility] Work Phone: Basophils/100 WBC (Bld) 1.3 % 0-1 [facility] Work Phone: Chloride [Moles/Vol] 107 mmol/L 98-107 [facility] Work Phone: Eosinophils/100 WBC (Bld) 1.7 % 0-5 [facility] Work Phone: Glucose [Mass/Vol] 126 mg/dL 74-106 [facility] Work Phone: Comment on above: Fasting Glucose resu lt greater than or equal to 126 mg/dL suggests DIABETES MELLITUS per A.D.A. criteria. Neutrophils (Bld) [#/Vol] 6.1 10*3/uL 2.0-7.7 [facility] Work Phone: Neutrophils/100 WBC (Bld) 66.5 % 47-70 [facility] Work Phone: Potassium [Moles/Vol] 4.4 mmol/L 3.5-5.1 [facility] Work Phone: [phone] Sodium [Moles/Vol] 139 mmol/L 136-145 [facility] Work Phone: WBC (Bld) [#/Vol] 9.2 10*3/uL 4.4-11.0 [facility] Work Phone: [phone] Bilirubin Test strip Ql (U)o n 07-15-2022 Bilirubin Ql (U) Negative Negative [facility] Work Phone: Blood erythrocytes count (nu mber/volume)on 07-15-2022 RBC (Bld) [#/Vol] 5.01 10*6/uL 4.6-6.2 [facility] Work Phone: Blood hemoglobin measurement (mass/volume)on 07-15-2022 Hemoglobin (Bld) [Mass/Vol] 14.8 g/dL 13.0-16.5 [facility] Work Phone: Blood lymphocytes/100 leukoc yteson 07-15-2022 Lymphocytes/100 WBC (Bld) 20.9 % 19-41 [facility] Work Phone: Blood monocytes/100 leukocyt eson 07-15-2022 Monocytes/100 WBC (Bld) 8.9 % 0-10 [facility] Work Phone: Blood platelet mean volumeon 07-15-2022 Platelet mean volume (Bld) [Entitic vol] 9.7 fL 6.2-12.0 [facility] Work Phone: Determination of erythrocyte mean corpuscular volume (MCV)on 07-15-2022 MCV (RBC) [Entitic vol] 91.8 fL 80-94 [facility] Work Phone: Hematocrit Auto (Bld) [Volum e fraction]on 07-15-2022 Hematocrit (Bld) [Volume fraction] 46.0 % 40-54 [facility] Work Phone: Ketones Test strip Ql (U)on 07-15-2022 Ketones Ql (U) Negative Negative [facility] Work Phone: Laboratory - Chemistry and C hemistry - challengeon 07-15-2022 CO2 [Moles/Vol] 25.0 mmol/L 21.0-32.0 [facility] Work Phone: Urea nitrogen/Creatinine [Mass ratio] 14.9 mg/mg 10-20 [facility] Work Phone: Laboratory - Hematology and Cell countson 07-15-2022 Erythrocyte distribution width (RBC) [Entitic vol] 44.0 fL 35.1-43.9 [facility] Work Phone: Erythrocyte distribution width (RBC) [Ratio] 13.1 % 11.6-14.6 [facility] Work Phone: Immature granulocytes/100 WBC (Bld) 0.700 % 0.0-0.9 [facility] Work Phone: Comment on above: IG% - Immature Granu locytes (promyelocytes, myelocytes and metamyelocytes) > 1% indicates that a LEFT SHIFT is Present. MCH (RBC) [Entitic mass] 29.5 pg 27.0-32.0 [facility] Work Phone: Nucleated RBC/100 WBC (Bld) [Ratio] 0 % 0-5 [facility] Work Phone: MCHC Auto (RBC) [Mass/Vol]on 07-15-2022 MCHC (RBC) [Mass/Vol] 32.2 g/dL 32-36 [facility] Work Phone: Nitrite Test strip Ql (U)on 07-15-2022 Nitrite Ql (U) Negative Negative [facility] Work Phone: No Panel Informationon 07-15 Estimated GFR (MDRD) Amer 54 mL/min >60 [facility] Work Phone: Comment on above: GFR Calc Estimated GFR (MDRD) Non-Af Amer 45 mL/min >60 [facility] Work Phone: Comment on above: Non- GFR Calc Platelets bldon 07-15-2022 Platelets (Bld) [#/Vol] 231 10*3/uL 150-450 [facility] Work Phone: Protein Test strip Ql (U)on 07-15-2022 Protein Ql (U) 30 mg/dl Negative [facility] Work Phone: Serum or plasma albumin you urement (mass/volume)on 07-15-2022 Albumin [Mass/Vol] 3.1 g/dL 3.2-5.0 [facility] Work Phone: Serum or plasma calcium you urement (mass/volume)on 07-15-2022 Calcium [Mass/Vol] 8.6 mg/dL 8.5-10.1 [facility] Work Phone: Serum or plasma creatinine m easurement (mass/volume)on 07-15-2022 Creatinine [Mass/Vol] 1.68 mg/dL 0.70-1.30 [facility] Work Phone: Comment on above: The validity of the calculated GFR & GFRAA in patients over 70 years has not been determined. Clinical correlation is essential. Serum or plasma urea nitroge n measurement (mass/volume)on 07-15-2022 Urea nitrogen [Mass/Vol] 25 mg/dL 7-18 [facility] Work Phone: Urine blood detectionon 09-0 RBC Ql (U) Negative Negative [facility] Work Phone: Urine clarityon 07-15-2022 Clarity (U) Sl. Cloudy Clear [facility] Work Phone: Urine color determinationon 07-15-2022 Color (U) Yellow Yellow [facility] Work Phone: Urine creatinine measurement (mass/volume)on 07-15-2022 Creatinine (U) [Mass/Vol] 114.00 mg/dL NO RANGE EST. [facility] Work Phone: Urine glucose detectionon Glucose Ql (U) Normal mg/dl Normal [facility] Work Phone: Urine leukocyte esterase det ection by dipstickon 07-15-2022 Leukocyte esterase Test strip Ql (U) 100 /ul Negative [facility] Work Phone: Urine pHon 07-15-2022 pH (U) 6.0 [pH] 5.0 - 8.0 [facility] Work Phone: Urine protein measurement (m ass/volume)on 07-15-2022 Protein (U) [Mass/Vol] 26.5 mg/dL 0.0-11.8 [facility] Work Phone: Urine protein/creatinine mas s ratioon 07-15-2022 Protein/Creatinine (U) [Mass ratio] 232 mg/g CRE 0-200 [facility] Work Phone: Urine specific gravity measu rementon 07-15-2022 Specific gravity (U) [Rel density] 1.015 1.002-1.030 [facility] Work Phone: Urobilinogen Auto test strip Ql (U)on 07-15-2022 Urobilinogen Ql (U) Normal mg/dl Normal [facility] Work Phone: Basophil percentageon 2021 Cholesterol [Mass/Vol] 149 mg/dL <200 [facility] Work Phone: Comment on above: <200 mg/dL Desirable 200-240 mg/dL Borderline >240 mg/dL High Risk Triglyceride [Mass/Vol] 379 mg/dL <199 [facility] Work Phone: Comment on above: The drugs N-Acetylcy steine and Metamizole may falsely depress this assay.Serum Triglycerides Reference Interval Normal <150 mg/dL Borderline high 150 - 199 mg/dL High 200 - 499 mg/dL Very High > or = 500 mg/dL No Panel Informationon 06-28 [place] Level 0.40 mmol/L 0.60-1.20 [facility] Work Phone: Serum or plasma cholesterol in HDL measurement (mass/volume)on 06-28-2022 Cholesterol in HDL [Mass/Vol] 34 mg/dL >40 [facility] Work Phone: Comment on above: The drugs N-Acetylcy steine and Metamizole may falsely depress this assay. Reference Range HDL <40 mg/dL Low HDL Cholesterol HDL >or= 60 mg/dL High HDL Cholesterol Serum or plasma cholesterol in VLDL measurement (mass/volume)on 06-28-2022 Cholesterol in VLDL [Mass/Vol] 76 mg/dL 5-40 [facility] Work Phone: Serum or plasma low density lipoprotein (LDL) cholesterol measurement (mass/volume)on 06-28-2022 Cholesterol in LDL [Mass/Vol] 39 mg/dL 0-130 [facility] Work Phone: Serum or plasma uric acid me asurement (mass/volume)on 06-28-2022 Urate [Mass/Vol] 5.9 mg/dL 3.5-7.2 [facility] Work Phone: Comment on above: The drugs N-Acetylcy steine and Metamizole may falsely depress this assay. Absolute lymphocyte counton 06-17-2022 Lymphocytes Auto (Unsp spec) [#/Vol] 2.02 10*3/uL 0.83-4.51 [facility] Work Phone: Basophil percentageon 2021 Basophil percentage 0-5 SEEN /hpf 0-5 [facility] Work Phone: Basophil percentage 3.8 mg/dL 2.5-4.9 [facility] Work Phone: Basophils/100 WBC (Bld) 0.8 % 0-1 [facility] Work Phone: Chloride [Moles/Vol] 108 mmol/L 98-[address] [facility] [facility] Work Phone: Eosinophils/100 WBC (Bld) 2.9 % 0-5 [facility] Work Phone: [phone] Glucose [Mass/Vol] 133 mg/dL 74-106 [facility] Work Phone: Comment on above: Fasting Glucose resu lt greater than or equal to 126 mg/dL suggests DIABETES MELLITUS per A.D.A. criteria. Neutrophils (Bld) [#/Vol] 5.3 10*3/uL 2.0-7.7 [facility] Work Phone: Neutrophils/100 WBC (Bld) 61.6 % 47-70 [facility] Work Phone: Potassium [Moles/Vol] 3.8 mmol/L 3.5-5.[address] [facility] Work Phone: Sodium [Moles/Vol] 140 mmol/L 136-145 [facility] Work Phone: WBC (Bld) [#/Vol] 8.6 10*3/uL 4.4-11.0 [facility] Work Phone: Bilirubin Test strip Ql (U)o n 06-17-2022 Bilirubin Ql (U) Negative Negative [facility] Work Phone: Blood erythrocytes count (nu mber/volume)on 06-17-2022 RBC (Bld) [#/Vol] 4.46 10*6/uL 4.6-6.[facility] Blood hemoglobin measurement (mass/volume)on 06-17-2022 Hemoglobin (Bld) [Mass/Vol] 13.4 g/dL 13.0-16.5 [facility] Work Phone: Blood lymphocytes/100 leukoc yteson 06-17-2022 Lymphocytes/100 WBC (Bld) 23.5 % 19-41 [facility] Work Phone: Blood monocytes/100 leukocyt eson 06-17-2022 Monocytes/100 WBC (Bld) 10.0 % 0-10 [facility] Work Phone: Blood platelet mean volumeon 06-17-2022 Platelet mean volume (Bld) [Entitic vol] 9.6 fL 6.2-12.0 [facility] Work Phone: Determination of erythrocyte mean corpuscular volume (MCV)on 06-17-2022 MCV (RBC) [Entitic vol] 91.3 fL 80-94 [facility] Work Phone: Hematocrit Auto (Bld) [Volum e fraction]on 06-17-2022 Hematocrit (Bld) [Volume fraction] 40.7 % 40-54 [facility] Work Phone: Ketones Test strip Ql (U)on 06-17-2022 Ketones Ql (U) Negative Negative [facility] Work Phone: Laboratory - Chemistry and C hemistry - challengeon 06-17-2022 CO2 [Moles/Vol] 25.0 mmol/L 21.0-32.0 [facility] Work Phone: Urea nitrogen/Creatinine [Mass ratio] 12.6 mg/mg 10-20 [facility] Work Phone: Laboratory - Hematology and Cell countson 06-17-2022 Erythrocyte distribution width (RBC) [Entitic vol] 45.5 fL 35.1-43.9 [facility] Work Phone: Erythrocyte distribution width (RBC) [Ratio] 13.4 % 11.6-14.6 [facility] Work Phone: Immature granulocytes/100 WBC (Bld) 1.200 % 0.0-0.9 [facility] Work Phone: Comment on above: IG% - Immature Granu locytes (promyelocytes, myelocytes and metamyelocytes) > 1% indicates that a LEFT SHIFT is Present. MCH (RBC) [Entitic mass] 30.0 pg 27.0-32.0 [facility] Work Phone: Nucleated RBC/100 WBC (Bld) [Ratio] 0 % 0-5 [facility] Work Phone: MCHC Auto (RBC) [Mass/Vol]on 06-17-2022 MCHC (RBC) [Mass/Vol] 32.9 g/dL 32-36 [facility] Work Phone: Mucus LM Ql (Urine sed)on Mucus Ql (Urine sed) 0 SEEN /hpf [facility] Work Phone: Nitrite Test strip Ql (U)on 06-17-2022 Nitrite Ql (U) Negative Negative [facility] Work Phone: No Panel Informationon 06-17 Estimated GFR (MDRD) Amer 58 mL/min >60 [facility] Work Phone: Comment on above: GFR Calc Estimated GFR (MDRD) Non-Af Amer 48 mL/min >60 [facility] Work Phone: Comment on above: Non- GFR Calc Platelets bldon 06-17-2022 Platelets (Bld) [#/Vol] 178 10*3/uL 150-450 [facility] Work Phone: Protein Test strip Ql (U)on 06-17-2022 Protein Ql (U) 15 mg/dl Negative [facility] Work Phone: Serum or plasma albumin you urement (mass/volume)on 06-17-2022 Albumin [Mass/Vol] 2.8 g/dL 3.2-5.0 [facility] Work Phone: Serum or plasma calcium you urement (mass/volume)on 06-17-2022 Calcium [Mass/Vol] 8.6 mg/dL 8.5-10.1 [facility] Work Phone: Serum or plasma creatinine m easurement (mass/volume)on 06-17-2022 Creatinine [Mass/Vol] 1.59 mg/dL 0.70-1.30 [facility] Work Phone: Comment on above: The validity of the calculated GFR & GFRAA in patients over 70 years has not been determined. Clinical correlation is essential. Serum or plasma urea nitroge n measurement (mass/volume)on 06-17-2022 Urea nitrogen [Mass/Vol] 20 mg/dL 7-18 [facility] Work Phone: Squamous epithelial cells de tection in urine sediment by light microscopyon 06-17-2022 Epithelial cells.squamous LM Ql (Urine sed) 0-5 SEEN /hpf 0-5 [facility] Work Phone: Urine blood detectionon RBC Ql (U) Negative Negative [facility] Work Phone: RBC Ql (U) 0 SEEN /hpf 0-5 [facility] Work Phone: Urine clarityon 06-17-2022 Clarity (U) Clear Clear [facility] Work Phone: Urine color determinationon 06-17-2022 Color (U) Yellow Yellow [facility] Work Phone: Urine creatinine measurement (mass/volume)on 06-17-2022 Creatinine (U) [Mass/Vol] 118.00 mg/dL NO RANGE EST. [facility] Work Phone: Urine glucose detectionon Glucose Ql (U) Normal mg/dl Normal [facility] Work Phone: Urine leukocyte esterase det ection by dipstickon 06-17-2022 Leukocyte esterase Test strip Ql (U) 100 /ul Negative [facility] Work Phone: Urine pHon 06-17-2022 pH (U) 6.0 [pH] 5.0 - 8.0 [facility] Work Phone: Urine protein measurement (m ass/volume)on 06-17-2022 Protein (U) [Mass/Vol] 22.0 mg/dL 0.0-11.8 [facility] Work Phone: Urine protein/creatinine mas s ratioon 06-17-2022 Protein/Creatinine (U) [Mass ratio] 186 mg/g CRE 0-200 [facility] Work Phone: Urine sediment bacteria coun t by microscopy (number/high power field)on 06-17-2022 Bacteria LM.HPF (Urine sed) [#/Area] 0 /[HPF] None Seen [facility] Work Phone: Urine specific gravity measu rementon 06-17-2022 Specific gravity (U) [Rel density] 1.015 1.002-1.030 [facility] Work Phone: Urobilinogen Auto test strip Ql (U)on 06-17-2022 Urobilinogen Ql (U) Normal mg/dl [facility] Work [facility]: No Panel Informationon 05-27 [place] Level 0.40 mmol/L 0.60-1.20 [facility] Work Phone: Serum or plasma uric acid me asurement (mass/volume)on 05-27-2022 Urate [Mass/Vol] 6.1 mg/dL 3.5-7.2 [facility] Work Phone: Comment on above: The drugs N-Acetylcy steine and Metamizole may falsely depress this assay. Absolute lymphocyte counton 05-20-2022 Lymphocytes Auto (Unsp spec) [#/Vol] 2.07 10*3/uL 0.83-4.51 [facility] Work Phone: Basophil percentageon 2021 Basophil percentage 3.2 mg/dL 2.5-4.9 [facility] Work Phone: Basophils/100 WBC (Bld) 0.7 % 0-1 [facility] Work Phone: Chloride [Moles/Vol] 108 mmol/L 98-107 [facility] Work [facility]: Eosinophils/100 WBC (Bld) 2.5 % 0-5 [facility] Work Phone: Glucose [Mass/Vol] 149 mg/dL 74-106 [facility] Work Phone: Comment on above: Fasting Glucose resu lt greater than or equal to 126 mg/dL suggests DIABETES MELLITUS per A.D.A. criteria. Neutrophils (Bld) [#/Vol] 6.4 10*3/uL 2.0-7.7 [facility] Work Phone: Neutrophils/100 WBC (Bld) 65.6 % 47-70 [facility] Work Phone: [phone] Potassium [Moles/Vol] 3.9 mmol/L 3.5-5.1 [facility] Work Phone: Sodium [Moles/Vol] 140 mmol/L 136-145 [facility] Work Phone: WBC (Bld) [#/Vol] 9.7 10*3/uL 4.4-11.0 [facility] Work Phone: Basophil percentage 0-5 SEEN /hpf 0-5 [facility] Work Phone: [phone] Bilirubin Test strip Ql (U)o n 05-20-2022 Bilirubin Ql (U) Negative Negative [facility] Work Phone: [phone] Blood erythrocytes count (nu mber/volume)on 05-20-2022 RBC (Bld) [#/Vol] 4.36 10*6/uL 4.6-6.2 [facility] Work Phone: Blood hemoglobin measurement (mass/volume)on 05-20-2022 Hemoglobin (Bld) [Mass/Vol] 12.9 g/dL 13.0-16.5 [facility] Work Phone: Blood lymphocytes/100 leukoc yteson 05-20-2022 Lymphocytes/100 WBC (Bld) 21.4 % 19-41 [facility] Work Phone: Blood monocytes/100 leukocyt eson 05-20-2022 Monocytes/100 WBC (Bld) 9.3 % 0-10 [facility] Work Phone: [phone] Blood platelet mean volumeon 05-20-2022 Platelet mean volume (Bld) [Entitic vol] 9.6 fL 6.2-12.0 [facility] Work Phone: Determination of erythrocyte mean corpuscular volume (MCV)on 05-20-2022 MCV (RBC) [Entitic vol] 91.5 fL 80-94 [facility] Work Phone: Hematocrit Auto (Bld) [Volum e fraction]on 05-20-2022 Hematocrit (Bld) [Volume fraction] 39.9 % 40-54 [facility] Work Phone: Ketones Test strip Ql (U)on 05-20-2022 Ketones Ql (U) Negative Negative [facility] Work Phone: Laboratory - Chemistry and C hemistry - challengeon 05-20-2022 CO2 [Moles/Vol] 26.0 mmol/L 21.0-32.0 [facility] Work Phone: Urea nitrogen/Creatinine [Mass ratio] 9.9 mg/mg 10-20 [facility] Work Phone: Laboratory - Hematology and Cell countson 05-20-2022 Erythrocyte distribution width (RBC) [Entitic vol] 45.7 fL 35.1-43.9 [facility] Work Phone: Erythrocyte distribution width (RBC) [Ratio] 13.6 % 11.6-14.6 [facility] Work Phone: Immature granulocytes/100 WBC (Bld) 0.500 % 0.0-0.9 [facility] Work Phone: [phone] Comment on above: IG% - Immature Granu locytes (promyelocytes, myelocytes and metamyelocytes) > 1% indicates that a LEFT SHIFT is Present. MCH (RBC) [Entitic mass] 29.6 pg 27.0-32.0 [facility] Work Phone: Nucleated RBC/100 WBC (Bld) [Ratio] 0 % 0-5 [facility] Work Phone: MCHC Auto (RBC) [Mass/Vol]on 05-20-2022 MCHC (RBC) [Mass/Vol] 32.3 g/dL 32-36 [facility] Work Phone: Mucus LM Ql (Urine sed)on Mucus Ql (Urine sed) 0 SEEN /hpf [facility] Work Phone: Nitrite Test strip Ql (U)on 05-20-2022 Nitrite Ql (U) Negative Negative [facility] Work Phone: No Panel Informationon 05-20 Estimated GFR (MDRD) Amer 53 mL/min >60 [facility] Work Phone: Comment on above: GFR Calc Estimated GFR (MDRD) Non-Af Amer 44 mL/min >60 [facility] Work Phone: Comment on above: Non- GFR Calc Platelets bldon 05-20-2022 Platelets (Bld) [#/Vol] 197 10*3/uL 150-450 [facility] Work Phone: Protein Test strip Ql (U)on 05-20-2022 Protein Ql (U) Negative Negative [facility] Work Phone: Serum or plasma albumin you urement (mass/volume)on 05-20-2022 Albumin [Mass/Vol] 2.7 g/dL 3.2-5.0 [facility] Work Phone: Serum or plasma calcium you urement (mass/volume)on 05-20-2022 Calcium [Mass/Vol] 9.0 mg/dL 8.5-10.1 [facility] Work Phone: Serum or plasma creatinine m easurement (mass/volume)on 05-20-2022 Creatinine [Mass/Vol] 1.71 mg/dL 0.70-1.30 [facility] Work Phone: Comment on above: The validity of the calculated GFR & GFRAA in patients over 70 years has not been determined. Clinical correlation is essential. Serum or plasma urea nitroge n measurement (mass/volume)on 05-20-2022 Urea nitrogen [Mass/Vol] 17 mg/dL 7-18 [facility] Work Phone: Squamous epithelial cells de tection in urine sediment by light microscopyon 05-20-2022 Epithelial cells.squamous LM Ql (Urine sed) 0-5 SEEN /hpf 0-5 [facility] Work Phone: Urine blood detectionon RBC Ql (U) Negative Negative [facility] Work Phone: RBC Ql (U) 0 SEEN /hpf 0-5 [facility] Work Phone: Urine clarityon 05-20-2022 Clarity (U) Clear Clear [facility] Work Phone: Urine color determinationon 05-20-2022 Color (U) Yellow Yellow [facility] Work Phone: Urine creatinine measurement (mass/volume)on 05-20-2022 Creatinine (U) [Mass/Vol] 107.00 mg/dL NO RANGE EST. [facility] Work Phone: Urine glucose detectionon Glucose Ql (U) Normal mg/dl Normal [facility] Work Phone: Urine leukocyte esterase det ection by dipstickon 05-20-2022 Leukocyte esterase Test strip Ql (U) 25 /ul Negative [facility] Work Phone: Urine pHon 05-20-2022 pH (U) 6.5 [pH] 5.0 - 8.0 [facility] Work Phone: Urine protein measurement (m ass/volume)on 05-20-2022 Protein (U) [Mass/Vol] 17.3 mg/dL 0.0-11.8 [facility] Work Phone: Urine protein/creatinine mas s ratioon 05-20-2022 Protein/Creatinine (U) [Mass ratio] 162 mg/g CRE 0-200 [facility] Work Phone: Urine sediment bacteria coun t by microscopy (number/high power field)on 05-20-2022 Bacteria LM.HPF (Urine sed) [#/Area] 0 /[HPF] None Seen [facility] Work Phone: Urine specific gravity measu rementon 05-20-2022 Specific gravity (U) [Rel density] 1.010 1.002-1.030 [facility] Work Phone: [phone] Urobilinogen Auto test strip Ql (U)on 05-20-2022 Urobilinogen Ql (U) Normal mg/dl Normal [facility] Work Phone: No Panel Informationon 05-05 [facility] Absolute lymphocyte counton 04-27-2022 Lymphocytes Auto (Unsp spec) [#/Vol] 2.36 10*3/uL 0.83-4.51 [facility] Work Phone: Basophil percentageon 2021 Basophil percentage 4.6 mg/dL 2.5-4.9 [facility] Work Phone: Basophils/100 WBC (Bld) 0.3 % 0-1 [facility] Work Phone: Chloride [Moles/Vol] 104 mmol/L 98-107 [facility] Work Phone: [phone] Eosinophils/100 WBC (Bld) 0.1 % 0-5 [facility] Work Phone: Glucose [Mass/Vol] 190 mg/dL 74-106 [facility] Work Phone: Comment on above: Fasting Glucose resu lt greater than or equal to 126 mg/dL suggests DIABETES MELLITUS per A.D.A. criteria. Neutrophils (Bld) [#/Vol] 10.5 10*3/uL 2.0-7.7 [facility] Work Phone: [phone] Neutrophils/100 WBC (Bld) 72.0 % 47-70 [facility] Work Phone: Potassium [Moles/Vol] 3.8 mmol/L 3.5-5.1 [place] [facility] Work Phone: Sodium [Moles/Vol] 140 mmol/L 136-145 [facility] Work Phone: WBC (Bld) [#/Vol] 14.5 10*3/uL 4.4-11.0 [facility] Blood erythrocytes count (nu mber/volume)on 04-27-2022 RBC (Bld) [#/Vol] 4.56 10*6/uL 4.6-6.2 [facility] Work Phone: Blood hemoglobin measurement (mass/volume)on 04-27-2022 Hemoglobin (Bld) [Mass/Vol] 13.4 g/dL 13.0-16.5 [facility] Work Phone: Blood lymphocytes/100 leukoc yteson 04-27-2022 Lymphocytes/100 WBC (Bld) 16.3 % 19-41 [facility] Work Phone: Blood monocytes/100 leukocyt eson 04-27-2022 Monocytes/100 WBC (Bld) 7.6 % 0-10 [facility] Work Phone: Blood platelet mean volumeon 04-27-2022 Platelet mean volume (Bld) [Entitic vol] 9.2 fL 6.2-12.0 [facility] Work Phone: Determination of erythrocyte mean corpuscular volume (MCV)on 04-27-2022 MCV (RBC) [Entitic vol] 91.0 fL 80-94 [facility] Work Phone: Hematocrit Auto (Bld) [Volum e fraction]on 04-27-2022 Hematocrit (Bld) [Volume fraction] 41.5 % 40-54 [facility] Work Phone: Laboratory - Chemistry and C hemistry - challengeon 04-27-2022 CO2 [Moles/Vol] 28.0 mmol/L 21.0-32.0 [facility] Work Phone: Urea nitrogen/Creatinine [Mass ratio] 13.4 mg/mg 10-20 [facility] Work Phone: Laboratory - Hematology and Cell countson 04-27-2022 Erythrocyte distribution width (RBC) [Entitic vol] 45.7 fL 35.1-43.9 [facility] Work Phone: Erythrocyte distribution width (RBC) [Ratio] 13.7 % 11.6-14.6 [facility] Work Phone: Immature granulocytes/100 WBC (Bld) 3.700 % 0.0-0.9 [facility] Work Phone: Comment on above: IG% - Immature Granu locytes (promyelocytes, myelocytes and metamyelocytes) > 1% indicates that a LEFT SHIFT is Present. MCH (RBC) [Entitic mass] 29.4 pg 27.0-32.0 [facility] Work Phone: Nucleated RBC/100 WBC (Bld) [Ratio] 0.1 % 0-5 [facility] Work Phone: MCHC Auto (RBC) [Mass/Vol]on 04-27-2022 MCHC (RBC) [Mass/Vol] 32.3 g/dL 32-36 [facility] Work Phone: No Panel Informationon 04-27 Estimated GFR (MDRD) Amer 44 mL/min >60 [facility] Work Phone: Comment on above: GFR Calc Estimated GFR (MDRD) Non-Af Amer 36 mL/min >60 [facility] Work Phone: Comment on above: Non- GFR Calc [place] Level 0.50 mmol/L 0.60-1.20 [facility] Work Phone: Platelets bldon 04-27-2022 Platelets (Bld) [#/Vol] 243 10*3/uL 150-450 [facility] Work Phone: Serum or plasma albumin you urement (mass/volume)on 04-27-2022 Albumin [Mass/Vol] 2.9 g/dL 3.2-5.0 [facility] Work Phone: Serum or plasma calcium you urement (mass/volume)on 04-27-2022 Calcium [Mass/Vol] 9.3 mg/dL 8.5-10.1 [facility] Work Phone: Serum or plasma creatinine m easurement (mass/volume)on 04-27-2022 Creatinine [Mass/Vol] 2.02 mg/dL 0.70-1.30 [place] [facility] Work Phone: Comment on above: The validity of the calculated GFR & GFRAA in patients over 70 years has not been determined. Clinical correlation is essential. Serum or plasma urea nitroge n measurement (mass/volume)on 04-27-2022 Urea nitrogen [Mass/Vol] 27 mg/dL 7-18 [facility] Work Phone: Serum or plasma uric acid me asurement (mass/volume)on 04-27-2022 Urate [Mass/Vol] 6.5 mg/dL 3.5-7.2 [facility] Work Phone: Comment on above: The drugs N-Acetylcy steine and Metamizole may falsely depress this assay. Urine creatinine measurement (mass/volume)on 04-27-2022 Creatinine (U) [Mass/Vol] 69.70 mg/dL NO RANGE EST. [facility] Work Phone: Urine protein measurement (m ass/volume)on 04-27-2022 Protein (U) [Mass/Vol] 10.2 mg/dL 0.0-11.8 [facility] Work Phone: Urine protein/creatinine mas s ratioon 04-27-2022 Protein/Creatinine (U) [Mass ratio] 146 mg/g CRE 0-200 [facility] Work Phone: Basophil percentageon 2021 Basophil percentage 4.2 mg/dL 2.5-4.9 [place] [facility] Work Phone: Chloride [Moles/Vol] 107 mmol/L 98-[address] [facility] [address] [facility] Work Phone: Glucose [Mass/Vol] 129 mg/dL 74-106 [facility] Work Phone: Comment on above: Fasting Glucose resu lt greater than or equal to 126 mg/dL suggests DIABETES MELLITUS per A.D.A. criteria. Potassium [Moles/Vol] 3.8 mmol/L 3.5-5.1 [facility] Work Phone: Sodium [Moles/Vol] 140 mmol/L 136-145 [facility] Work Phone: Basophil percentage 25-50 SEEN /hpf 0-5 [facility] Work Phone: Bilirubin Test strip Ql (U)o n 04-22-2022 Bilirubin Ql (U) Negative Negative [facility] Work Phone: Culture, urineon 04-22-2022 Bacteria identified Cx Nom (U) Positive [facility] Work Phone: Ketones Test strip Ql (U)on 04-22-2022 Ketones Ql (U) Negative Negative [facility] Work Phone: Laboratory - Chemistry and C hemistry - challengeon 04-22-2022 CO2 [Moles/Vol] 27.0 mmol/L 21.0-32.0 [facility] Work Phone: Urea nitrogen/Creatinine [Mass ratio] 8.2 mg/mg 10-20 [facility] Work Phone: Mucus LM Ql (Urine sed)on Mucus Ql (Urine sed) 0 SEEN /hpf [facility] Work Phone: Nitrite Test strip Ql (U)on 04-22-2022 Nitrite Ql (U) Negative Negative [facility] Work Phone: No Panel Informationon 04-22 Estimated GFR (MDRD) Amer 53 mL/min >60 [facility] Work Phone: Comment on above: GFR Calc Estimated GFR (MDRD) Non-Af Amer 44 mL/min >60 [facility] Work Phone: Comment on above: Non- GFR Calc Protein Test strip Ql (U)on 04-22-2022 Protein Ql (U) 15 mg/dl Negative [facility] Work Phone: Serum or plasma albumin you urement (mass/volume)on 04-22-2022 Albumin [Mass/Vol] 2.6 g/dL 3.2-5.0 [facility] Work Phone: Serum or plasma calcium you urement (mass/volume)on 04-22-2022 Calcium [Mass/Vol] 9.1 mg/dL 8.5-10.1 [facility] Work Phone: Serum or plasma creatinine m easurement (mass/volume)on 04-22-2022 Creatinine [Mass/Vol] 1.71 mg/dL 0.70-1.30 [facility] Work Phone: Comment on above: The validity of the calculated GFR & GFRAA in patients over 70 years has not been determined. Clinical correlation is essential. Serum or plasma urea nitroge n measurement (mass/volume)on 04-22-2022 Urea nitrogen [Mass/Vol] 14 mg/dL 7-18 [facility] Work Phone: Squamous epithelial cells de tection in urine sediment by light microscopyon 04-22-2022 Epithelial cells.squamous LM Ql (Urine sed) 0-5 SEEN /hpf 0-5 [facility] Work Phone: Urine blood detectionon RBC Ql (U) 10 /ul Negative [facility] Work Phone: RBC Ql (U) 0-5 SEEN /hpf 0-5 [facility] Work Phone: Urine clarityon 04-22-2022 Clarity (U) Clear Clear [facility] Work Phone: Urine color determinationon 04-22-2022 Color (U) Yellow Yellow [facility] Work Phone: Urine creatinine measurement (mass/volume)on 04-22-2022 Creatinine (U) [Mass/Vol] 171.00 mg/dL NO RANGE EST. [facility] Work Phone: Urine glucose detectionon Glucose Ql (U) Normal mg/dl Normal [facility] Work Phone: Urine leukocyte esterase det ection by dipstickon 04-22-2022 Leukocyte esterase Test strip Ql (U) 500 /ul Negative [facility] Work Phone: Urine pHon 04-22-2022 pH (U) 6.0 [pH] 5.0 - 8.0 [facility] Work Phone: Urine protein measurement (m ass/volume)on 04-22-2022 Protein (U) [Mass/Vol] 30.4 mg/dL 0.0-11.8 [facility] Work Phone: Urine protein/creatinine mas s ratioon 04-22-2022 Protein/Creatinine (U) [Mass ratio] 178 mg/g CRE 0-200 [facility] Work Phone: Urine sediment bacteria coun t by microscopy (number/high power field)on 04-22-2022 Bacteria LM.HPF (Urine sed) [#/Area] 0 /[HPF] None Seen [facility] Work Phone: Urine specific gravity measu rementon 04-22-2022 Specific gravity (U) [Rel density] 1.015 1.002-1.030 [facility] Work Phone: Urobilinogen Auto test strip Ql (U)on 04-22-2022 Urobilinogen Ql (U) Normal mg/dl Normal [facility] Work Phone: Absolute lymphocyte counton 04-21-2022 Lymphocytes Auto (Unsp spec) [#/Vol] 2.19 10*3/uL 0.83-4.51 [facility] Work Phone: Basophil percentageon 2021 Basophils/100 WBC (Bld) 0.6 % 0-1 [facility] Work Phone: Eosinophils/100 WBC (Bld) 2.4 % 0-5 [facility] Work Phone: Neutrophils (Bld) [#/Vol] 5.3 10*3/uL 2.0-7.7 [facility] Work Phone: Neutrophils/100 WBC (Bld) 60.5 % 47-70 [facility] Work Phone: WBC (Bld) [#/Vol] 8.8 10*3/uL 4.4-11.0 [facility] Work Phone: Blood erythrocytes count (nu mber/volume)on 04-21-2022 RBC (Bld) [#/Vol] 4.29 10*6/uL 4.6-6.2 [facility] Work Phone: Blood hemoglobin measurement (mass/volume)on 04-21-2022 Hemoglobin (Bld) [Mass/Vol] 12.9 g/dL 13.0-16.5 [facility] Work Phone: Blood lymphocytes/100 leukoc yteson 04-21-2022 Lymphocytes/100 WBC (Bld) 24.9 % 19-41 [facility] Work Phone: Blood monocytes/100 leukocyt eson 04-21-2022 Monocytes/100 WBC (Bld) 11.4 % 0-10 [facility] Work Phone: Blood platelet mean volumeon 04-21-2022 Platelet mean volume (Bld) [Entitic vol] 9.5 fL 6.2-12.0 [facility] Work Phone: Determination of erythrocyte mean corpuscular volume (MCV)on 04-21-2022 MCV (RBC) [Entitic vol] 92.1 fL 80-94 [facility] Work Phone: Hematocrit Auto (Bld) [Volum e fraction]on 04-21-2022 Hematocrit (Bld) [Volume fraction] 39.5 % 40-54 [facility] Work Phone: Laboratory - Hematology and Cell countson 04-21-2022 Erythrocyte distribution width (RBC) [Entitic vol] 45.9 fL 35.1-43.9 [facility] Work Phone: Erythrocyte distribution width (RBC) [Ratio] 13.5 % 11.6-14.6 [facility] Work Phone: Immature granulocytes/100 WBC (Bld) 0.200 % 0.0-0.9 [facility] Work Phone: Comment on above: IG% - Immature Granu locytes (promyelocytes, myelocytes and metamyelocytes) > 1% indicates that a LEFT SHIFT is Present. MCH (RBC) [Entitic mass] 30.1 pg 27.0-32.0 [facility] Work Phone: Nucleated RBC/100 WBC (Bld) [Ratio] 0 % 0-5 [facility] Work Phone: MCHC Auto (RBC) [Mass/Vol]on 04-21-2022 MCHC (RBC) [Mass/Vol] 32.7 g/dL 32-36 [facility] Work Phone: Platelets bldon 04-21-2022 Platelets (Bld) [#/Vol] 199 10*3/uL 150-450 [facility] Work Phone: Serum or plasma uric acid me asurement (mass/volume)on 04-21-2022 Urate [Mass/Vol] 6.2 mg/dL 3.5-7.2 [facility] Work Phone: Comment on above: The drugs N-Acetylcy steine and Metamizole may falsely depress this assay. Laboratory - Microbiology an d Antimicrobial susceptibilityon 04-06-2022 SARS-CoV-2 (COVID-19) RNA AMANDO+probe Ql (Unsp spec) Detected Not Detect [facility] Work Phone: Comment on above: Normal Reference Ran ge: Not DetectedMethod:(RT-PCR) real-time reverse transcriptase PCRLuminex MORGAN Instrument*The Food and Drug Administration (FDA) has issued an Emergency Use Authorization (EAU) for the MORGAN SARS-CoV-2 Assay for the rapid detection of the virus that causes COVID-19. This test has been validated, but the [facility] this [...] Auto (Unsp spec) [#/Vol] 1.96 10*3/uL 0.83-4.51 [facility] Work Phone: Basophil percentageon 2021 Basophils/100 WBC (Bld) 0.6 % 0-1 [facility] Work Phone: Chloride [Moles/Vol] 103 mmol/L 98-107 [facility] Work Phone: Eosinophils/100 WBC (Bld) 0.6 % 0-5 [facility] Work Phone: [phone] Glucose [Mass/Vol] 133 mg/dL 74-106 [facility] Work Phone: Comment on above: Fasting Glucose resu lt greater than or equal to 126 mg/dL suggests DIABETES MELLITUS per A.D.A. criteria. Neutrophils (Bld) [#/Vol] 7.3 10*3/uL 2.0-7.7 [facility] Work Phone: Neutrophils/100 WBC (Bld) 64.6 % 47-70 [facility] Work Phone: [phone] Potassium [Moles/Vol] 3.5 mmol/L 3.5-5.1 [facility] Work Phone: [phone] Sodium [Moles/Vol] 138 mmol/L 136-145 [facility] Work Phone: WBC (Bld) [#/Vol] 11.3 10*3/uL 4.4-11.0 [facility] Work Phone: Blood erythrocytes count (nu mber/volume)on 04-02-2022 RBC (Bld) [#/Vol] 4.81 10*6/uL 4.6-6.2 [facility] Work Phone: Blood hemoglobin measurement (mass/volume)on 04-02-2022 Hemoglobin (Bld) [Mass/Vol] 14.4 g/dL 13.0-16.5 [facility] Work Phone: Blood lymphocytes/100 leukoc yteson 04-02-2022 Lymphocytes/100 WBC (Bld) 17.3 % 19-41 [facility] Work Phone: Blood monocytes/100 leukocyt eson 04-02-2022 Monocytes/100 WBC (Bld) 15.7 % 0-10 [facility] Work Phone: Blood platelet mean volumeon 04-02-2022 Platelet mean volume (Bld) [Entitic vol] 10.0 fL 6.2-12.0 [facility] Work Phone: Determination of erythrocyte mean corpuscular volume (MCV)on 04-02-2022 MCV (RBC) [Entitic vol] 91.7 fL 80-94 [facility] Work Phone: Hematocrit Auto (Bld) [Volum e fraction]on 04-02-2022 Hematocrit (Bld) [Volume fraction] 44.1 % 40-54 [facility] Work Phone: Laboratory - Chemistry and C hemistry - challengeon 04-02-2022 CO2 [Moles/Vol] 26.0 mmol/L 21.0-32.0 [facility] Work Phone: Urea nitrogen/Creatinine [Mass ratio] 14.1 mg/mg 09-02 [facility] Work Phone: Laboratory - Hematology and Cell countson 04-02-2022 Erythrocyte distribution width (RBC) [Entitic vol] 47.8 fL 35.1-43.9 [facility] Work Phone: Erythrocyte distribution width (RBC) [Ratio] 14.0 % 11.6-14.6 [facility] Work Phone: Immature granulocytes/100 WBC (Bld) 1.200 % 0.0-0.9 [facility] Work Phone: Comment on above: IG% - Immature Granu locytes (promyelocytes, myelocytes and metamyelocytes) > 1% indicates that a LEFT SHIFT is Present. MCH (RBC) [Entitic mass] 29.9 pg 27.0-32.0 [facility] Work Phone: Nucleated RBC/100 WBC (Bld) [Ratio] 0 % 0-5 [facility] Work Phone: MCHC Auto (RBC) [Mass/Vol]on 04-02-2022 MCHC (RBC) [Mass/Vol] 32.7 g/dL 32-36 [facility] Work Phone: No Panel Informationon 04-02 Estimated GFR (MDRD) Amer 51 mL/min >60 [facility] Work Phone: Comment on above: GFR Calc Estimated GFR (MDRD) Non-Af Amer 42 mL/min >60 [facility] Work Phone: Comment on above: Non- GFR Calc Platelets bldon 04-02-2022 Platelets (Bld) [#/Vol] 160 10*3/uL 150-450 [facility] Work Phone: Review by pathologiston 03-15 Pathologist review Crispin (Unsp spec) [Interp] Reviewed [facility] Work Phone: Comment on above: Previous reported re sult: Bonnie kincaid Edited by: RGOVISHAL on 04/06/22:912Leukocytosis. Tuan Servin M.D. 04/06/22 AMENDED REPORT 04/06/22912 PATH REV previously reported as: Bonnie kincaid Serum or plasma calcium you urement (mass/volume)on 04-02-2022 Calcium [Mass/Vol] 9.0 mg/dL 8.5-10.1 [facility] Work Phone: Serum or plasma creatinine m easurement (mass/volume)on 04-02-2022 Creatinine [Mass/Vol] 1.77 mg/dL 0.70-1.30 [facility] Work Phone: Comment on above: The validity of the calculated GFR & GFRAA in patients over 70 years has not been determined. Clinical correlation is essential. Serum or plasma urea nitroge n measurement (mass/volume)on 04-02-2022 Urea nitrogen [Mass/Vol] 25 mg/dL 7-18 [facility] Work Phone: Thin prep Papanicolaou smear with manual screeningon 04-02-2022 Thin prep Papanicolaou smear with manual screening 9 5-15 [facility] Work Phone: Absolute lymphocyte counton 03-25-2022 Lymphocytes Auto (Unsp spec) [#/Vol] 2.80 10*3/uL 0.83-4.51 [facility] Work Phone: Basophil percentageon 2021 Basophil percentage 4.0 mg/dL 2.5-4.9 [facility] Work Phone: Basophils/100 WBC (Bld) 0.6 % 0-1 [facility] Work Phone: Chloride [Moles/Vol] 106 mmol/L 98-107 [facility] Work Phone: Eosinophils/100 WBC (Bld) 1.7 % 0-5 [facility] Work Phone: Glucose [Mass/Vol] 164 mg/dL 74-106 [facility] Work Phone: Comment on above: Fasting Glucose resu lt greater than or equal to 126 mg/dL suggests DIABETES MELLITUS per A.D.A. criteria. Neutrophils (Bld) [#/Vol] 5.6 10*3/uL 2.0-7.7 [facility] Work Phone: [phone] Neutrophils/100 WBC (Bld) 56.9 % 47-70 [facility] Work Phone: Potassium [Moles/Vol] 3.8 mmol/L 3.5-5.1 [place] [facility] Work Phone: Sodium [Moles/Vol] 139 mmol/L 136-145 [facility] Work Phone: WBC (Bld) [#/Vol] 9.8 10*3/uL 4.4-11.0 [facility] Work Phone: Basophil percentage 0-5 SEEN /hpf 0-5 [facility] Work Phone: [phone] Bilirubin Test strip Ql (U)o n 03-25-2022 Bilirubin Ql (U) Negative Negative [facility] Work Phone: [phone] Blood erythrocytes count (nu mber/volume)on 03-25-2022 RBC (Bld) [#/Vol] 4.77 10*6/uL 4.6-6.2 [facility]: Blood hemoglobin measurement (mass/volume)on 03-25-2022 Hemoglobin (Bld) [Mass/Vol] 14.1 g/dL 13.0-16.5 [facility] Work Phone: Blood lymphocytes/100 leukoc yteson 03-25-2022 Lymphocytes/100 WBC (Bld) 28.7 % 19-41 [facility] Work Phone: Blood monocytes/100 leukocyt eson 03-25-2022 Monocytes/100 WBC (Bld) 9.2 % 0-10 [facility] Work Phone: Blood platelet mean volumeon 03-25-2022 Platelet mean volume (Bld) [Entitic vol] 9.3 fL 6.2-12.0 [facility] Work Phone: Determination of erythrocyte mean corpuscular volume (MCV)on 03-25-2022 MCV (RBC) [Entitic vol] 91.4 fL 80-94 [facility] Work Phone: Hematocrit Auto (Bld) [Volum e fraction]on 03-25-2022 Hematocrit (Bld) [Volume fraction] 43.6 % 40-54 [facility] Work Phone: Ketones Test strip Ql (U)on 03-25-2022 Ketones Ql (U) Negative Negative [facility] Work Phone: Laboratory - Chemistry and C hemistry - challengeon 03-25-2022 CO2 [Moles/Vol] 26.0 mmol/L 21.0-32.0 [facility] Work Phone: Urea nitrogen/Creatinine [Mass ratio] 15.4 mg/mg 10-20 [facility] Work Phone: Laboratory - Hematology and Cell countson 03-25-2022 Erythrocyte distribution width (RBC) [Entitic vol] 45.9 fL 35.1-43.9 [facility] Work Phone: Erythrocyte distribution width (RBC) [Ratio] 13.6 % 11.6-14.6 [facility] Work Phone: Immature granulocytes/100 WBC (Bld) 2.900 % 0.0-0.9 [facility] Work Phone: Comment on above: IG% - Immature Granu locytes (promyelocytes, myelocytes and metamyelocytes) > 1% indicates that a LEFT SHIFT is Present. MCH (RBC) [Entitic mass] 29.6 pg 27.0-32.0 [facility] Work Phone: Nucleated RBC/100 WBC (Bld) [Ratio] 0 % 0-5 [facility] Work Phone: MCHC Auto (RBC) [Mass/Vol]on 03-25-2022 MCHC (RBC) [Mass/Vol] 32.3 g/dL 32-36 [facility] Work Phone: Mucus LM Ql (Urine sed)on Mucus Ql (Urine sed) 0 SEEN /hpf [facility] Work Phone: Nitrite Test strip Ql (U)on 03-25-2022 Nitrite Ql (U) Negative Negative [facility] Work Phone: No Panel Informationon 03-25 Estimated GFR (MDRD) Amer 52 mL/min >60 [facility] Work Phone: Comment on above: GFR Calc Estimated GFR (MDRD) Non-Af Amer 43 mL/min >60 [facility] Work Phone: Comment on above: Non- GFR Calc Platelets bldon 03-25-2022 Platelets (Bld) [#/Vol] 276 10*3/uL 150-450 [facility] Work Phone: Protein Test strip Ql (U)on 03-25-2022 Protein Ql (U) Negative Negative [facility] Work Phone: Serum or plasma albumin you urement (mass/volume)on 03-25-2022 Albumin [Mass/Vol] 2.9 g/dL 3.2-5.0 [facility] Work Phone: Serum or plasma calcium you urement (mass/volume)on 03-25-2022 Calcium [Mass/Vol] 8.7 mg/dL 8.5-10.1 [facility] Work Phone: Serum or plasma creatinine m easurement (mass/volume)on 03-25-2022 Creatinine [Mass/Vol] 1.75 mg/dL 0.70-1.30 [facility] Work Phone: Comment on above: The validity of the calculated GFR & GFRAA in patients over 70 years has not been determined. Clinical correlation is essential. Serum or plasma urea nitroge n measurement (mass/volume)on 03-25-2022 Urea nitrogen [Mass/Vol] 27 mg/dL 7-18 [facility] Work Phone: Squamous epithelial cells de tection in urine sediment by light microscopyon 03-25-2022 Epithelial cells.squamous LM Ql (Urine sed) 0-5 SEEN /hpf 0-5 [facility] Work Phone: Urine blood detectionon 03-14 RBC Ql (U) Negative Negative [facility] Work Phone: RBC Ql (U) 0 SEEN /hpf 0-5 [facility] Work Phone: Urine clarityon 03-25-2022 Clarity (U) Sl. Cloudy Clear [facility] Work Phone: Urine color determinationon 03-25-2022 Color (U) Yellow Yellow [facility] Work Phone: Urine creatinine measurement (mass/volume)on 03-25-2022 Creatinine (U) [Mass/Vol] 90.50 mg/dL NO RANGE EST. [facility] Work Phone: Urine glucose detectionon Glucose Ql (U) Normal mg/dl Normal [facility] Work Phone: Urine leukocyte esterase det ection by dipstickon 03-25-2022 Leukocyte esterase Test strip Ql (U) 25 /ul Negative [facility] Work Phone: Urine pHon 03-25-2022 pH (U) 6.0 [pH] 5.0 - 8.0 [facility] Work Phone: Urine protein measurement (m ass/volume)on 03-25-2022 Protein (U) [Mass/Vol] 15.8 mg/dL 0.0-11.8 [facility] Work Phone: Urine protein/creatinine mas s ratioon 03-25-2022 Protein/Creatinine (U) [Mass ratio] 175 mg/g CRE 0-200 [facility] Work Phone: Urine sediment bacteria coun t by microscopy (number/high power field)on 03-25-2022 Bacteria LM.HPF (Urine sed) [#/Area] 0 /[HPF] None Seen [facility] Work Phone: Urine specific gravity measu rementon 03-25-2022 Specific gravity (U) [Rel density] 1.015 1.002-1.030 [facility] Work Phone: Urobilinogen Auto test strip Ql (U)on 03-25-2022 Urobilinogen Ql (U) Normal mg/dl Normal [facility] Work Phone: Serum or plasma uric acid me asurement (mass/volume)on 03-19-2022 Urate [Mass/Vol] 8.3 mg/dL 3.5-7.2 [facility] Work Phone: Comment on above: The drugs N-Acetylcy steine and Metamizole may falsely depress this assay. Absolute lymphocyte counton 02-25-2022 Lymphocytes Auto (Unsp spec) [#/Vol] 2.27 10*3/uL 0.83-4.51 [facility] Work Phone: Basophil percentageon 2021 Basophil percentage 0 SEEN /hpf 0-5 [facility] Work Phone: [phone] Basophil percentage 4.3 mg/dL 2.5-4.9 [facility] Work Phone: Basophils/100 WBC (Bld) 0.3 % 0-1 [facility] Work Phone: Chloride [Moles/Vol] 102 mmol/L 98-107 [facility] Work Phone: [phone] Eosinophils/100 WBC (Bld) 0.2 % 0-5 [facility] Work Phone: Glucose [Mass/Vol] 107 mg/dL 74-106 [facility] Work Phone: Comment on above: Fasting Glucose resu lt from 100 to 125 mg/dL suggests IMPAIRED HOMEOSTASIS per A.D.A. criteria. Neutrophils (Bld) [#/Vol] 7.8 10*3/uL 2.0-7.7 [facility] Work Phone: Neutrophils/100 WBC (Bld) 67.9 % 47-70 [facility] Work Phone: Potassium [Moles/Vol] 4.1 mmol/L 3.5-5.1 [facility] Work Phone: Comment on above: Moderate Hemolysis, Result may be falsely increased. Sodium [Moles/Vol] 137 mmol/L 136-145 [facility] Work Phone: WBC (Bld) [#/Vol] 11.6 10*3/uL 4.4-11.0 [facility] Work Phone: Bilirubin Test strip Ql (U)o n 02-25-2022 Bilirubin Ql (U) Negative Negative [facility] Work Phone: Blood erythrocytes count (nu mber/volume)on 02-25-2022 RBC (Bld) [#/Vol] 4.09 10*6/uL 4.6-6.2 [facility] Work Phone: Blood hemoglobin measurement (mass/volume)on 02-25-2022 Hemoglobin (Bld) [Mass/Vol] 12.0 g/dL 13.0-16.5 [facility] Work Phone: Blood lymphocytes/100 leukoc yteson 02-25-2022 Lymphocytes/100 WBC (Bld) 19.7 % 19-41 [facility] Work Phone: Blood monocytes/100 leukocyt eson 02-25-2022 Monocytes/100 WBC (Bld) 9.0 % 0-10 [facility] Work Phone: Blood platelet adequacy dete ction by light microscopyon 02-25-2022 Platelets LM Ql (Bld) ADEQUATE ADEQ [facility] Work Phone: Blood platelet mean volumeon 02-25-2022 Platelet mean volume (Bld) [Entitic vol] 9.9 fL 6.2-12.0 [facility] Work Phone: Culture, urineon 02-25-2022 Bacteria identified Cx Nom (U) Culture exhibits no growth. [facility] Work Phone: Determination of erythrocyte mean corpuscular volume (MCV)on 02-25-2022 MCV (RBC) [Entitic vol] 90.2 fL 80-94 [facility] Work Phone: Hematocrit Auto (Bld) [Volum e fraction]on 02-25-2022 Hematocrit (Bld) [Volume fraction] 36.9 % 40-54 [facility] Work Phone: Ketones Test strip Ql (U)on 02-25-2022 Ketones Ql (U) Negative Negative [facility] Work Phone: Laboratory - Chemistry and C hemistry - challengeon 02-25-2022 CO2 [Moles/Vol] 26.0 mmol/L 21.0-32.0 [facility] Work Phone: Urea nitrogen/Creatinine [Mass ratio] 18.6 mg/mg 10-20 [facility] Work Phone: Laboratory - Hematology and Cell countson 02-25-2022 Erythrocyte distribution width (RBC) [Entitic vol] 46.8 fL 35.1-43.9 [facility] Work Phone: Erythrocyte distribution width (RBC) [Ratio] 14.1 % 11.6-14.6 [facility] Work Phone: Immature granulocytes/100 WBC (Bld) 2.900 % 0.0-0.9 [facility] Work Phone: Comment on above: IG% - Immature Granu locytes (promyelocytes, myelocytes and metamyelocytes) > 1% indicates that a LEFT SHIFT is Present. MCH (RBC) [Entitic mass] 29.3 pg 27.0-32.0 [facility] Work Phone: Nucleated RBC/100 WBC (Bld) [Ratio] 0 % 0-5 [facility] Work Phone: MCHC Auto (RBC) [Mass/Vol]on 02-25-2022 MCHC (RBC) [Mass/Vol] 32.5 g/dL 32-36 [facility] Work Phone: Mucus LM Ql (Urine sed)on Mucus Ql (Urine sed) 0 SEEN /hpf [facility] Work Phone: Nitrite Test strip Ql (U)on 02-25-2022 Nitrite Ql (U) Negative Negative [facility] Work Phone: No Panel Informationon 02-25 Estimated GFR (MDRD) Amer 43 mL/min >60 [facility] Work Phone: Comment on above: GFR Calc Estimated GFR (MDRD) Non-Af Amer 36 mL/min >60 [facility] Work Phone: Comment on above: Non- GFR Calc [place] Level 0.50 mmol/L 0.60-1.20 [facility] Work Phone: Platelets bldon 02-25-2022 Platelets (Bld) [#/Vol] TNP [facility] Work Phone: Comment on above: Test not performedPl ease note: For this sample, a platelet estimate is provided rather than a platelet count due to platelet clumping. Other parameters associated with this sample are not affected by platelet clumping. If a more accurate platelet count is required, a redraw of the patient will be necessary.Previous reported result: [id number] by: RUPERTO on 02/25/22:1032 AMENDED REPORT 02/25/22 1032 PLT previously reported as: 202 K/mm3 Protein Test strip Ql (U)on 02-25-2022 Protein Ql (U) Negative Negative [facility] Work Phone: Serum or plasma albumin you urement (mass/volume)on 02-25-2022 Albumin [Mass/Vol] 3.2 g/dL 3.2-5.0 [facility] Work Phone: Serum or plasma calcium you urement (mass/volume)on 02-25-2022 Calcium [Mass/Vol] 8.4 mg/dL 8.5-10.1 [facility] Work Phone: Serum or plasma creatinine m easurement (mass/volume)on 02-25-2022 Creatinine [Mass/Vol] 2.04 mg/dL 0.70-1.30 [facility] Work Phone: Comment on above: The validity of the calculated GFR & GFRAA in patients over 70 years has not been determined. Clinical correlation is essential. Serum or plasma urea nitroge n measurement (mass/volume)on 02-25-2022 Urea nitrogen [Mass/Vol] 38 mg/dL 7-18 [facility] Work Phone: Serum or plasma uric acid me asurement (mass/volume)on 02-25-2022 Urate [Mass/Vol] 7.8 mg/dL 3.5-7.2 [facility] Work Phone: Comment on above: The drugs N-Acetylcy steine and Metamizole may falsely depress this assay. Squamous epithelial cells de tection in urine sediment by light microscopyon 02-25-2022 Epithelial cells.squamous LM Ql (Urine sed) 0 SEEN /hpf 0-5 [facility] Work Phone: Urine blood detectionon 02-12 RBC Ql (U) Negative Negative [facility] Work Phone: RBC Ql (U) 0 SEEN /hpf 0-5 [facility] Work Phone: Urine clarityon 02-25-2022 Clarity (U) Clear Clear [facility] Work Phone: Urine color determinationon 02-25-2022 Color (U) Yellow Yellow [facility] Work Phone: Urine creatinine measurement (mass/volume)on 02-25-2022 Creatinine (U) [Mass/Vol] 82.80 mg/dL NO RANGE EST. [facility] Work Phone: Urine glucose detectionon Glucose Ql (U) Normal mg/dl Normal [facility] Work Phone: Urine leukocyte esterase det ection by dipstickon 02-25-2022 Leukocyte esterase Test strip Ql (U) 25 /ul Negative [facility] Work Phone: Urine pHon 02-25-2022 pH (U) 6.0 [pH] 5.0 - 8.0 [facility] Work Phone: Urine protein measurement (m ass/volume)on 02-25-2022 Protein (U) [Mass/Vol] 13.8 mg/dL 0.0-11.8 [facility] Work Phone: Urine protein/creatinine mas s ratioon 02-25-2022 Protein/Creatinine (U) [Mass ratio] 167 mg/g CRE 0-200 [facility] Work Phone: Urine sediment bacteria coun t by microscopy (number/high power field)on 02-25-2022 Bacteria LM.HPF (Urine sed) [#/Area] 0 /[HPF] None Seen [facility] Work Phone: Urine specific gravity measu rementon 02-25-2022 Specific gravity (U) [Rel density] 1.020 1.002-1.030 [facility] Work Phone: Urobilinogen Auto test strip Ql (U)on 02-25-2022 Urobilinogen Ql (U) Normal mg/dl Normal [facility] Work Phone: Basophil percentageon 2021 Chloride [Moles/Vol] 110 mmol/L 98-107 [facility] Work Phone: Glucose [Mass/Vol] 125 mg/dL 74-106 [facility] Work Phone: Comment on above: Fasting Glucose resu lt from 100 to 125 mg/dL suggests IMPAIRED HOMEOSTASIS per A.D.A. criteria. Potassium [Moles/Vol] 4.1 mmol/L 3.5-5.1 [facility] Work Phone: Sodium [Moles/Vol] 139 mmol/L 136-145 [facility] Work Phone: Erythrocyte sedimentation ra meredith 02-18-2022 ESR (Bld) [Velocity] 12 mm/h 0-20 [facility] Work Phone: Laboratory - Chemistry and C hemistry - challengeon 02-18-2022 CO2 [Moles/Vol] 24.0 mmol/L 21.0-32.0 [facility] Work Phone: Urea nitrogen/Creatinine [Mass ratio] 11.8 mg/mg 10-20 [facility] Work Phone: No Panel Informationon 02-18 Estimated GFR (MDRD) Amer 48 mL/min >60 [facility] Work Phone: Comment on above: GFR Calc Estimated GFR (MDRD) Non-Af Amer 40 mL/min >60 [facility] Work Phone: Comment on above: Non- GFR Calc Serum or plasma calcium you urement (mass/volume)on 02-18-2022 Calcium [Mass/Vol] 8.7 mg/dL 8.5-10.[address] [facility] Work Phone: Serum or plasma creatinine m easurement (mass/volume)on 02-18-2022 Creatinine [Mass/Vol] 1.86 mg/dL 0.70-1.30 [facility] Work Phone: Comment on above: The validity of the calculated GFR & GFRAA in patients over 70 years has not been determined. Clinical correlation is essential. Serum or plasma urea nitroge n measurement (mass/volume)on 02-18-2022 Urea nitrogen [Mass/Vol] 22 mg/dL 7-18 [facility] Work Phone: Serum or plasma uric acid me asurement (mass/volume)on 02-18-2022 Urate [Mass/Vol] 7.2 mg/dL 3.5-7.2 [facility] Work Phone: Comment on above: The drugs N-Acetylcy steine and Metamizole may falsely depress this assay. Thin prep Papanicolaou smear with manual screeningon 02-18-2022 Thin prep Papanicolaou smear with manual screening 5 5-15 [facility] Work Phone: Absolute lymphocyte counton 01-28-2022 Lymphocytes Auto (Unsp spec) [#/Vol] 1.90 10*3/uL 0.83-4.51 [facility] Work Phone: Basophil percentageon 2021 Basophil percentage 0 SEEN /hpf 0-5 [facility] Work Phone: Basophil percentage 2.7 mg/dL 2.5-4.9 [facility]: Basophils/100 WBC (Bld) 0.5 % 0-1 [facility] Work Phone: Chloride [Moles/Vol] 110 mmol/L 98-107 [facility] Work [facility]: Eosinophils/100 WBC (Bld) 0.4 % 0-5 [facility] Work Phone: Glucose [Mass/Vol] 129 mg/dL 74-106 [facility] Work Phone: Comment on above: Fasting Glucose resu lt greater than or equal to 126 mg/dL suggests DIABETES MELLITUS per A.D.A. criteria. Neutrophils (Bld) [#/Vol] 8.0 10*3/uL 2.0-7.7 [facility] Work Phone: Neutrophils/100 WBC (Bld) 70.6 % 47-70 [facility] Work Phone: Potassium [Moles/Vol] 3.8 mmol/L 3.5-5.1 [facility] Work Phone: Sodium [Moles/Vol] 141 mmol/L 136-145 [facility] Work Phone: WBC (Bld) [#/Vol] 11.3 10*3/uL 4.4-11.0 [facility] Work Phone: Bilirubin Test strip Ql (U)o n 01-28-2022 Bilirubin Ql (U) Negative Negative [facility] Work Phone: [phone] Blood erythrocytes count (nu mber/volume)on 01-28-2022 RBC (Bld) [#/Vol] 4.23 10*6/uL 4.6-6.2 [facility] Work Phone: [phone] Blood hemoglobin measurement (mass/volume)on 01-28-2022 Hemoglobin (Bld) [Mass/Vol] 12.6 g/dL 13.0-16.5 [facility] Work Phone: Blood lymphocytes/100 leukoc yteson 01-28-2022 Lymphocytes/100 WBC (Bld) 16.8 % 19-41 [facility] Work Phone: Blood monocytes/100 leukocyt eson 01-28-2022 Monocytes/100 WBC (Bld) 10.0 % 0-10 [facility] Work Phone: Blood platelet mean volumeon 01-28-2022 Platelet mean volume (Bld) [Entitic vol] 9.3 fL 6.2-12.0 [facility] Work Phone: Determination of erythrocyte mean corpuscular volume (MCV)on 01-28-2022 MCV (RBC) [Entitic vol] 91.3 fL 80-94 [facility] Work Phone: Hematocrit Auto (Bld) [Volum e fraction]on 01-28-2022 Hematocrit (Bld) [Volume fraction] 38.6 % 40-54 [facility] Work Phone: Ketones Test strip Ql (U)on 01-28-2022 Ketones Ql (U) Negative Negative [facility] Work Phone: Laboratory - Chemistry and C hemistry - challengeon 01-28-2022 CO2 [Moles/Vol] 25.0 mmol/L 21.0-32.0 [facility] Work Phone: Urea nitrogen/Creatinine [Mass ratio] 14.7 mg/mg 10-20 [facility] Work Phone: Laboratory - Hematology and Cell countson 01-28-2022 Erythrocyte distribution width (RBC) [Entitic vol] 45.7 fL 35.1-43.9 [facility] Work Phone: Erythrocyte distribution width (RBC) [Ratio] 13.7 % 11.6-14.6 [facility] Work Phone: Immature granulocytes/100 WBC (Bld) 1.700 % 0.0-0.9 [facility] Work Phone: Comment on above: IG% - Immature Granu locytes (promyelocytes, myelocytes and metamyelocytes) > 1% indicates that a LEFT SHIFT is Present. MCH (RBC) [Entitic mass] 29.8 pg 27.0-32.0 [facility] Work Phone: Nucleated RBC/100 WBC (Bld) [Ratio] 0 % 0-5 [facility] Work Phone: MCHC Auto (RBC) [Mass/Vol]on 01-28-2022 MCHC (RBC) [Mass/Vol] 32.6 g/dL 32-36 [facility] Work Phone: Mucus LM Ql (Urine sed)on Mucus Ql (Urine sed) 0 SEEN /hpf [facility] Work Phone: Nitrite Test strip Ql (U)on 01-28-2022 Nitrite Ql (U) Negative Negative [facility] Work Phone: No Panel Informationon 01-28 Urine Microalbumin/Creatinine Ratio 77.0 mg/g CRE <30 [facility] Work Phone: Estimated GFR (MDRD) Amer 56 mL/min >60 [facility] Work Phone: Comment on above: GFR Calc Estimated GFR (MDRD) Non-Af Amer 46 mL/min >60 [facility] Work Phone: Comment on above: Non- GFR Calc Platelets bldon 01-28-2022 Platelets (Bld) [#/Vol] 240 10*3/uL 150-450 [facility] Work Phone: Protein Test strip Ql (U)on 01-28-2022 Protein Ql (U) Negative Negative [facility] Work Phone: Serum or plasma albumin you urement (mass/volume)on 01-28-2022 Albumin [Mass/Vol] 3.2 g/dL 3.2-5.0 [facility] Work Phone: Serum or plasma calcium you urement (mass/volume)on 01-28-2022 Calcium [Mass/Vol] 8.4 mg/dL 8.5-10.1 [facility] Work Phone: Serum or plasma creatinine m easurement (mass/volume)on 01-28-2022 Creatinine [Mass/Vol] 1.63 mg/dL 0.70-1.30 [facility] Work Phone: Comment on above: The validity of the calculated GFR & GFRAA in patients over 70 years has not been determined. Clinical correlation is essential. Serum or plasma urea nitroge n measurement (mass/volume)on 01-28-2022 Urea nitrogen [Mass/Vol] 24 mg/dL 7-18 [facility] Work Phone: Squamous epithelial cells de tection in urine sediment by light microscopyon 01-28-2022 Epithelial cells.squamous LM Ql (Urine sed) 0-5 SEEN /hpf 0-5 [facility] Work Phone: Thin prep Papanicolaou smear with manual screeningon 01-28-2022 Thin prep Papanicolaou smear with manual screening 28.5 mg/L NO RANGE EST. [facility] Work Phone: Urine blood detectionon 01-12 RBC Ql (U) Negative Negative [facility] Work Phone: RBC Ql (U) 0 SEEN /hpf 0-5 [facility] Work Phone: Urine clarityon 01-28-2022 Clarity (U) Sl. Cloudy Clear [facility] Work Phone: Urine color determinationon 01-28-2022 Color (U) Yellow Yellow [facility] Work Phone: Urine creatinine measurement (mass/volume)on 01-28-2022 Creatinine (U) [Mass/Vol] 37.00 mg/dL NO RANGE EST. [facility] Work Phone: Urine glucose detectionon Glucose Ql (U) Normal mg/dl Normal [facility] Work Phone: Urine leukocyte esterase det ection by dipstickon 01-28-2022 Leukocyte esterase Test strip Ql (U) Negative Negative [facility] Work Phone: Urine pHon 01-28-2022 pH (U) 7.0 [pH] 5.0 - 8.0 [facility] Work Phone: Urine sediment bacteria coun t by microscopy (number/high power field)on 01-28-2022 Bacteria LM.HPF (Urine sed) [#/Area] 0 /[HPF] None Seen [facility] Work Phone: Urine specific gravity measu rementon 01-28-2022 Specific gravity (U) [Rel density] 1.010 1.002-1.030 [facility] Work Phone: Urobilinogen Auto test strip Ql (U)on 01-28-2022 Urobilinogen Ql (U) Normal mg/dl Normal [facility] Work Phone: No Panel Informationon 01-25 [place] Level 0.50 mmol/L 0.60-1.20 [facility] Work Phone: Basophil percentageon 2021 Cholesterol [Mass/Vol] 140 mg/dL <200 [facility] Work Phone: Comment on above: <200 mg/dL Desirable 200-240 mg/dL Borderline >240 mg/dL High Risk Triglyceride [Mass/Vol] 247 mg/dL <199 [facility] Work Phone: Comment on above: The drugs N-Acetylcy steine and Metamizole may falsely depress this assay.Serum Triglycerides Reference Interval Normal <150 mg/dL Borderline high 150 - 199 mg/dL High 200 - 499 mg/dL Very High > or = 500 mg/dL No Panel Informationon 01-04 [place] Level 0.50 mmol/L 0.60-1.20 [facility] Work Phone: Serum or plasma cholesterol in HDL measurement (mass/volume)on 01-04-2022 Cholesterol in HDL [Mass/Vol] 34 mg/dL >40 [facility] Work Phone: Comment on above: The drugs N-Acetylcy steine and Metamizole may falsely depress this assay. Reference Range HDL <40 mg/dL Low HDL Cholesterol HDL >or= 60 mg/dL High HDL Cholesterol Serum or plasma cholesterol in VLDL measurement (mass/volume)on 01-04-2022 Cholesterol in VLDL [Mass/Vol] 49 mg/dL 5-40 [facility] Work Phone: Serum or plasma low density lipoprotein (LDL) cholesterol measurement (mass/volume)on 01-04-2022 Cholesterol in LDL [Mass/Vol] 57 mg/dL 0-130 [facility] Work Phone: No Panel Informationon 12-07 [place] Level 0.50 mmol/L 0.60-1.20 [facility] Work Phone: Absolute lymphocyte counton 12-03-2021 Lymphocytes Auto (Unsp spec) [#/Vol] 2.02 10*3/uL 0.83-4.51 [facility] Work Phone: Basophil percentageon 2021 Basophils/100 WBC (Bld) 1.1 % 0-1 [facility] Work Phone: Chloride [Moles/Vol] 108 mmol/L 98-107 [facility] Work Phone: Eosinophils/100 WBC (Bld) 2.9 % 0-5 [facility] Work Phone: Glucose [Mass/Vol] 118 mg/dL 74-106 [facility] Work Phone: Comment on above: Fasting Glucose resu lt from 100 to 125 mg/dL suggests IMPAIRED HOMEOSTASIS per A.D.A. criteria. Neutrophils (Bld) [#/Vol] 4.3 10*3/uL 2.0-7.7 [facility] Work Phone: Neutrophils/100 WBC (Bld) 57.2 % 47-70 [facility] Work Phone: Potassium [Moles/Vol] 3.9 mmol/L 3.5-5.1 [facility] Work Phone: Sodium [Moles/Vol] 140 mmol/L 136-145 [facility] Work Phone: WBC (Bld) [#/Vol] 7.5 10*3/uL 4.4-11.0 [facility] Work Phone: Bilirubin Test strip Ql (U)o n 12-03-2021 Bilirubin Ql (U) Negative Negative [facility] Work Phone: Blood erythrocytes count (nu mber/volume)on 12-03-2021 RBC (Bld) [#/Vol] 4.70 10*6/uL 4.6-6.2 [facility] Work Phone: Blood hemoglobin measurement (mass/volume)on 12-03-2021 Hemoglobin (Bld) [Mass/Vol] 13.7 g/dL 13.0-16.5 [facility] Work Phone: Blood lymphocytes/100 leukoc yteson 12-03-2021 Lymphocytes/100 WBC (Bld) 27.1 % 19-41 [facility] Work Phone: Blood monocytes/100 leukocyt eson 12-03-2021 Monocytes/100 WBC (Bld) 11.0 % 0-10 [facility] Work Phone: Blood platelet mean volumeon 12-03-2021 Platelet mean volume (Bld) [Entitic vol] 9.1 fL 6.2-12.0 [facility] Work Phone: Culture, urineon 12-03-2021 Bacteria identified Cx Nom (U) Culture exhibits no growth. [facility] Work Phone: Determination of erythrocyte mean corpuscular volume (MCV)on 12-03-2021 MCV (RBC) [Entitic vol] 88.9 fL 80-94 [facility] Work Phone: Hematocrit Auto (Bld) [Volum e fraction]on 12-03-2021 Hematocrit (Bld) [Volume fraction] 41.8 % 40-54 [facility] Work Phone: Ketones Test strip Ql (U)on 12-03-2021 Ketones Ql (U) Negative Negative [facility] Work Phone: Laboratory - Chemistry and C hemistry - challengeon 12-03-2021 CO2 [Moles/Vol] 27.0 mmol/L 21.0-32.0 [facility] Work Phone: Urea nitrogen/Creatinine [Mass ratio] 9.7 mg/mg 10-20 [facility] Work Phone: Laboratory - Hematology and Cell countson 12-03-2021 Erythrocyte distribution width (RBC) [Entitic vol] 43.4 fL 35.1-43.9 [facility] Work Phone: Erythrocyte distribution width (RBC) [Ratio] 13.2 % 11.6-14.6 [facility] Work Phone: Immature granulocytes/100 WBC (Bld) 0.700 % 0.0-0.9 [facility] Work Phone: Comment on above: IG% - Immature Granu locytes (promyelocytes, myelocytes and metamyelocytes) > 1% indicates that a LEFT SHIFT is Present. MCH (RBC) [Entitic mass] 29.1 pg 27.0-32.0 [facility] Work Phone: Nucleated RBC/100 WBC (Bld) [Ratio] 0 % 0-5 [facility] Work Phone: MCHC Auto (RBC) [Mass/Vol]on 12-03-2021 MCHC (RBC) [Mass/Vol] 32.8 g/dL 32-36 [facility] Work Phone: Nitrite Test strip Ql (U)on 12-03-2021 Nitrite Ql (U) Negative Negative [facility] Work Phone: No Panel Informationon 12-03 Estimated GFR (MDRD) Amer 43 mL/min >60 [facility] Work Phone: Comment on above: GFR Calc Estimated GFR (MDRD) Non-Af Amer 35 mL/min >60 [facility] Work Phone: Comment on above: Non- GFR Calc [place] Level 0.50 mmol/L 0.60-1.20 [facility] Work Phone: Platelets bldon 12-03-2021 Platelets (Bld) [#/Vol] 230 10*3/uL 150-450 [facility] Work Phone: Protein Test strip Ql (U)on 12-03-2021 Protein Ql (U) Negative Negative [facility] Work Phone: Serum or plasma calcium you urement (mass/volume)on 12-03-2021 Calcium [Mass/Vol] 8.9 mg/dL 8.5-10.[address] [facility] Work Phone: Serum or plasma creatinine m easurement (mass/volume)on 12-03-2021 Creatinine [Mass/Vol] 2.07 mg/dL 0.70-1.30 [facility] Work Phone: Comment on above: The validity of the calculated GFR & GFRAA in patients over 70 years has not been determined. Clinical correlation is essential. Serum or plasma urea nitroge n measurement (mass/volume)on 12-03-2021 Urea nitrogen [Mass/Vol] 20 mg/dL 7-18 [facility] Work Phone: Thin prep Papanicolaou smear with manual screeningon 12-03-2021 Thin prep Papanicolaou smear with manual screening 5 5-15 [facility] Work Phone: Urine blood detectionon 11-15 RBC Ql (U) Negative Negative [facility] Work Phone: Urine clarityon 12-03-2021 Clarity (U) Clear Clear [facility] Work Phone: Urine color determinationon 12-03-2021 Color (U) Yellow Yellow [facility] Work Phone: Urine glucose detectionon Glucose Ql (U) Normal mg/dl Normal [facility] Work Phone: Urine leukocyte esterase det ection by dipstickon 12-03-2021 Leukocyte esterase Test strip Ql (U) Negative Negative [facility] Work Phone: Urine pHon 12-03-2021 pH (U) 7.0 [pH] [facility] Work Phone: Urine specific gravity measu rementon 12-03-2021 Specific gravity (U) [Rel density] 1.010 [facility] Work Phone: Urobilinogen Auto test strip Ql (U)on 12-03-2021 Urobilinogen Ql (U) Normal mg/dl Normal [facility] Work Phone: No Panel Informationon 11-09 [place] Level 0.40 mmol/L 0.60-1.20 [facility] Work Phone: Absolute lymphocyte counton 11-05-2021 Lymphocytes Auto (Unsp spec) [#/Vol] 2.12 10*3/uL 0.83-4.51 [facility] Work Phone: Basophil percentageon 2020 Chloride [Moles/Vol] 110 mmol/L 98-107 [facility] Work Phone: Eosinophils/100 WBC (Bld) 2.8 % 0-5 [facility] Work Phone: Glucose [Mass/Vol] 132 mg/dL 74-106 [facility] Work Phone: Comment on above: Fasting Glucose resu lt greater than or equal to 126 mg/dL suggests DIABETES MELLITUS per A.D.A. criteria.Please note revised GLUCOSE reference range effective 2017. Neutrophils (Bld) [#/Vol] 5.7 10*3/uL 2.0-7.7 [facility] Work Phone: [phone] Potassium [Moles/Vol] 4.0 mmol/L 3.5-5.1 [facility] Work Phone: Sodium [Moles/Vol] 143 mmol/L 136-145 [facility] Work Phone: WBC (Bld) [#/Vol] 9.3 10*3/uL 4.4-11.0 [facility] Work Phone: Basophil percentage 10-25 SEEN /hpf [facility] Work Phone: Bilirubin Test strip Ql (U)o n 11-05-2021 Bilirubin Ql (U) Negative Negative [facility] Work Phone: Blood erythrocytes count (nu mber/volume)on 11-05-2021 RBC (Bld) [#/Vol] 4.57 10*6/uL 4.6-6.2 [facility] Work Phone: Blood hemoglobin measurement (mass/volume)on 11-05-2021 Hemoglobin (Bld) [Mass/Vol] 13.4 g/dL 13.0-16.5 [facility] Work Phone: Blood lymphocytes/100 leukoc yteson 11-05-2021 Lymphocytes/100 WBC (Bld) 22.9 % 19-41 [facility] Work Phone: Blood monocytes/100 leukocyt eson 11-05-2021 Monocytes/100 WBC (Bld) 10.9 % 0-10 [facility] Work Phone: Blood platelet mean volumeon 11-05-2021 Platelet mean volume (Bld) [Entitic vol] 9.1 fL 6.2-12.0 [facility] Work Phone: Culture, urineon 11-05-2021 Bacteria identified Cx Nom (U) Streptococcus mitis/ oralis [facility] Work Phone: Determination of erythrocyte mean corpuscular volume (MCV)on 11-05-2021 MCV (RBC) [Entitic vol] 89.5 fL 80-94 [facility] Work Phone: Hematocrit Auto (Bld) [Volum e fraction]on 11-05-2021 Hematocrit (Bld) [Volume fraction] 40.9 % 40-54 [facility] Work Phone: Ketones Test strip Ql (U)on 11-05-2021 Ketones Ql (U) Negative Negative [facility] Work Phone: Laboratory - Chemistry and C hemistry - challengeon 11-05-2021 CO2 [Moles/Vol] 28.0 mmol/L 21.0-32.0 [facility] Work Phone: Urea nitrogen/Creatinine [Mass ratio] 11.6 mg/mg 10-20 [facility] Work Phone: Laboratory - Hematology and Cell countson 11-05-2021 Basophils/100 WBC (Unsp spec) 0.9 % 0-1 [facility] Work Phone: [phone] Erythrocyte distribution width (RBC) [Entitic vol] 43.5 fL 35.1-43.9 [facility] Work Phone: Erythrocyte distribution width (RBC) [Ratio] 13.3 % 11.6-14.6 [facility] Work Phone: [phone] Immature granulocytes/100 WBC (Bld) 0.600 % 0.0-0.9 [facility] Work Phone: [phone] Comment on above: IG% - Immature Granu locytes (promyelocytes, myelocytes and metamyelocytes) > 1% indicates that a LEFT SHIFT is Present. MCH (RBC) [Entitic mass] 29.3 pg 27.0-32.0 [facility] Work Phone: Neutrophils/100 WBC (Bld) 61.9 % 47-70 [facility] Work Phone: Nucleated RBC/100 WBC (Bld) [Ratio] 0 % 0-5 [facility] Work Phone: MCHC Auto (RBC) [Mass/Vol]on 11-05-2021 MCHC (RBC) [Mass/Vol] 32.8 g/dL 32-36 [facility] Work Phone: Mucus LM Ql (Urine sed)on Mucus Ql (Urine sed) 0 SEEN /hpf [facility] Work Phone: Nitrite Test strip Ql (U)on 11-05-2021 Nitrite Ql (U) Negative Negative [facility] Work Phone: No Panel Informationon 11-05 Estimated GFR (MDRD) Amer 47 mL/min >60 [facility] Work Phone: Comment on above: GFR Calc Estimated GFR (MDRD) Non-Af Amer 39 mL/min >60 [facility] Work Phone: Comment on above: Non- GFR Calc Platelets bldon 11-05-2021 Platelets (Bld) [#/Vol] 218 10*3/uL 150-450 [facility] Work Phone: Protein Test strip Ql (U)on 11-05-2021 Protein Ql (U) 15 mg/dl Negative [facility] Work Phone: Serum or plasma albumin you urement (mass/volume)on 11-05-2021 Albumin [Mass/Vol] 2.7 g/dL 3.2-5.0 [facility] Work Phone: Serum or plasma calcium you urement (mass/volume)on 11-05-2021 Calcium [Mass/Vol] 8.7 mg/dL 8.5-10.1 [facility] Work Phone: Serum or plasma creatinine m easurement (mass/volume)on 11-05-2021 Creatinine [Mass/Vol] 1.90 mg/dL 0.70-1.30 [facility] Work Phone: Comment on above: The validity of the calculated GFR & GFRAA in patients over 70 years has not been determined. Clinical correlation is essential. Serum or plasma urea nitroge n measurement (mass/volume)on 11-05-2021 Urea nitrogen [Mass/Vol] 22 mg/dL 7-18 [facility] Work Phone: Squamous epithelial cells de tection in urine sediment by light microscopyon 11-05-2021 Epithelial cells.squamous LM Ql (Urine sed) 0-5 SEEN /hpf [facility] Work Phone: Thin prep Papanicolaou smear with manual screeningon 11-05-2021 Thin prep Papanicolaou smear with manual screening 5 5-15 [facility] Work Phone: Urine blood detectionon 10-15 RBC Ql (U) Negative Negative [facility] Work Phone: RBC Ql (U) 0 SEEN /hpf [facility] Work Phone: Urine clarityon 11-05-2021 Clarity (U) Sl. Cloudy Clear [facility] Work Phone: Urine color determinationon 11-05-2021 Color (U) Yellow Yellow [facility] Work Phone: Urine creatinine measurement (mass/volume)on 11-05-2021 Creatinine (U) [Mass/Vol] 169.00 mg/dL NO RANGE EST. [facility] Work Phone: Urine glucose detectionon Glucose Ql (U) Normal mg/dl Normal [facility] Work Phone: Urine leukocyte esterase det ection by dipstickon 11-05-2021 Leukocyte esterase Test strip Ql (U) 100 /ul Negative [facility] Work Phone: Urine pHon 11-05-2021 pH (U) 6.0 [pH] [facility] Work Phone: Urine protein measurement (m ass/volume)on 11-05-2021 Protein (U) [Mass/Vol] 21.0 mg/dL 0.0-11.8 [facility] Work Phone: Urine protein/creatinine mas s ratioon 11-05-2021 Protein/Creatinine (U) [Mass ratio] 124 mg/g CRE 0-200 [facility] Work Phone: Urine sediment bacteria coun t by microscopy (number/high power field)on 11-05-2021 Bacteria LM.HPF (Urine sed) [#/Area] 0 /[HPF] None Seen [facility] Work Phone: Urine specific gravity measu rementon 11-05-2021 Specific gravity (U) [Rel density] 1.020 [facility] Work Phone: Urobilinogen Auto test strip Ql (U)on 11-05-2021 Urobilinogen Ql (U) Normal mg/dl Normal [facility] Work Phone: CBC Auto Differentialon 10-15 Erythrocyte distribution width (RBC) [Ratio] 14.5 % 11.5 - 14.5 % [place] Hematocrit (Bld) [Volume fraction] 42.1 % 40 - 52 % [place] Hemoglobin (Bld) [Mass/Vol] 13.8 g/dL 13 - 18 g/dL [place] Interpretation and review of laboratory results Abnormal [place] MCH (RBC) [Entitic mass] 28.8 pg 26 - 34 pg [place] MCHC (RBC) [Mass/Vol] 32.7 % 32 - 36 % [place] MCV (RBC) [Entitic vol] 88.1 fL 80 - 98 fL [place] Platelet mean volume (Bld) [Entitic vol] 7.9 fL 7.4 - 10.4 fL [place] Platelets (Bld) [#/Vol] 356 10*3/uL 140 - 440 10*3/uL [place] RBC (Bld) [#/Vol] 4.78 10*6/uL 4.4 - 5.9 10*6/uL [place] WBC (Bld) [#/Vol] 16.4 10*3/uL High 3.6 - 10.7 10*3/uL [place] Test Performed by [facility], [address] [place] [address] [place] Comp Panel with Mg Reflexon 11-04-2020 Calcium [Mass/Vol] 8.9 mg/dL Normal 8.4-10.4 [facility] Comment on above: Performed By: #### H EMOG, CMP3M, CRP2, LDH3, FIBGN, DDI2, APTT, FERR3 #### [facility] [address] [place] [address] ALP [Catalytic activity/Vol] 83 U/L Normal 38-126 [facility] Comment on above: Performed By: #### H EMOG, CMP3M, CRP2, LDH3, FIBGN, DDI2, APTT, FERR3 #### [facility] [address] [place] [place] [address] ALT [Catalytic activity/Vol] 133 U/L High 0-49 [facility] Comment on above: Result Comment: The ALT test is performed by an updated assay method. Please note that the reference intervals have been changed and are now sex specific. Performed By: #### H EMOG, CMP3M, CRP2, LDH3, FIBGN, DDI2, APTT, FERR3 #### [facility] [address] [place] [address] Anion gap [Moles/Vol] 9 Normal [facility] Comment on above: Performed By: #### H EMOG, CMP3M, CRP2, LDH3, FIBGN, DDI2, APTT, FERR3 #### [facility] [address] [place] [address] AST [Catalytic activity/Vol] 39 U/L Normal 15-46 [facility] Comment on above: Performed By: #### H EMOG, CMP3M, CRP2, LDH3, FIBGN, DDI2, APTT, FERR3 #### [facility] [address] [place] [address] Bilirubin [Mass/Vol] 0.6 mg/dL Normal 0.2-1.3 [facility] Comment on above: Performed By: #### H EMOG, CMP3M, CRP2, LDH3, FIBGN, DDI2, APTT, FERR3 #### [facility] [address] [place] [address] CO2 [Moles/Vol] 20 mmol/L Low 22-30 [facility] Comment on above: Performed By: #### H EMOG, CMP3M, CRP2, LDH3, FIBGN, DDI2, APTT, FERR3 #### [facility] [address] [place] [address] Glucose [Mass/Vol] 140 mg/dL High 70-100 [facility] Comment on above: Performed By: #### H EMOG, CMP3M, CRP2, LDH3, FIBGN, DDI2, APTT, FERR3 #### [facility] [address] [place] [address] Protein [Mass/Vol] 6.1 g/dL Low 6.3-8.2 [facility] Comment on above: Performed By: #### H EMOG, CMP3M, CRP2, LDH3, FIBGN, DDI2, APTT, FERR3 #### [facility] [address] [place] [address] Urea nitrogen [Mass/Vol] 41 mg/dL High 7-20 [facility] Comment on above: Performed By: #### H EMOG, CMP3M, CRP2, LDH3, FIBGN, DDI2, APTT, FERR3 #### [facility] [address] [place] [address] Creatinine [Mass/Vol] 1.84 mg/dL High 0.52-1.25 [facility] Comment on above: Performed By: #### H EMOG, CMP3M, CRP2, LDH3, FIBGN, DDI2, APTT, FERR3 #### [facility] [address] [place] [address] GFR/1.73 sq M predicted among blacks MDRD (S/P/Bld) [Vol rate/Area] 46.0 mL/min/{1.73_m2} Abnormal >60 [facility] Comment on above: Performed By: #### H EMOG, CMP3M, CRP2, LDH3, FIBGN, DDI2, APTT, FERR3 #### [facility] [address] [place] [address] GFR/1.73 sq M predicted among non-blacks MDRD (S/P/Bld) [Vol rate/Area] 39.7 mL/min/{1.73_m2} Abnormal >60 [facility] Comment on above: Result Comment: KDIG O [...] CRP2, LDH3, FIBGN, DDI2, APTT, FERR3 #### [facility] [address] [place] [address] Albumin [Mass/Vol] 3.4 g/dL Low 3.5-5.0 [facility] Comment on above: Performed By: #### H EMOG, CMP3M, CRP2, LDH3, FIBGN, DDI2, APTT, FERR3 #### [facility] [address] [place] [address] Chloride [Moles/Vol] 106 mmol/L Normal 98-107 [facility] Comment on above: Performed By: #### H EMOG, CMP3M, CRP2, LDH3, FIBGN, DDI2, APTT, FERR3 #### [facility] [address] [place] [address] Potassium [Moles/Vol] 4.3 mmol/L Normal 3.5-5.1 [facility] Comment on above: Performed By: #### H EMOG, CMP3M, CRP2, LDH3, FIBGN, DDI2, APTT, FERR3 #### [facility] [address] [place] [address] Sodium [Moles/Vol] 134 mmol/L Low 135-145 [facility] Comment on above: Performed By: #### H EMOG, CMP3M, CRP2, LDH3, FIBGN, DDI2, APTT, FERR3 #### [facility] [address] [place] [address] Comprehensive Metabolic Pane l w/ Reflex to MGon 11-04-2020 Albumin [Mass/Vol] 3.4 g/dL Low 3.5 - 5 g/dL [place] ALP [Catalytic activity/Vol] 83 U/L 38 - 126 U/L [place] ALT [Catalytic activity/Vol] 133 U/L High 0 - 49 U/L [place] Comment on above: The ALT test is perf ormed by an updated assay method. Please note that the reference intervals have been changed and are now sex specific. Anion gap [Moles/Vol] 9 mmol/L [place] AST [Catalytic activity/Vol] 39 U/L 15 - 46 U/L [place] Bilirubin Ql (U) 0.6 mg/dL 0.2 - 1.3 mg/dL [place] Calcium [Mass/Vol] 8.9 mg/dL 8.4 - 10. 4 mg/dL [place] Chloride [Moles/Vol] 106 mmol/L 98 - 10 7 mmol/L [place] CO2 [Moles/Vol] 20 mmol/L Low 22 - 30 mmol/L [place] Creatinine [Mass/Vol] 1.84 mg/dL High 0.52 - 1.25 mg/dL [place] EGFR IF NonAfrican [place]ian 39.7 mL/min Abnormal >60 [place] Comment on above: KDIGO guidelines pro [...] (S/P/Bld) [Vol rate/Area] 46.0 mL/min/{1.73_m2} Abnormal >60 [place] Glucose [Mass/Vol] 140 mg/dL High 70 - 100 mg/dL [place] Interpretation and review of laboratory results Abnormal [place] Potassium [Moles/Vol] 4.3 mmol/L 3.5 - 5.1 mmol/L [place] Protein [Mass/Vol] 6.1 g/dL Low 6.3 - 8.2 g/dL [place] Sodium [Moles/Vol] 134 mmol/L Low 135 - 145 mmol/L [place] Urea nitrogen [Mass/Vol] 41 mg/dL High 7 - 20 mg/dL [place] Test Performed by [facility], [address] [place] [address] [place] Hemogram w/ Autodiffon 11-04 Erythrocyte distribution width (RBC) [Ratio] 14.5 % Normal 11.5-14.5 [facility] Comment on above: Performed By: #### H EMOG, CMP3M, CRP2, LDH3, FIBGN, DDI2, APTT, FERR3 #### [facility] [address] [place] [address] Hematocrit (Bld) [Volume fraction] 42.1 % Normal 40.0-52.0 [facility] Comment on above: Performed By: #### H EMOG, CMP3M, CRP2, LDH3, FIBGN, DDI2, APTT, FERR3 #### [facility] [address] [place] [address] Hemoglobin (Bld) [Mass/Vol] 13.8 g/dL Normal 13.0-18.0 [facility] Comment on above: Performed By: #### H EMOG, CMP3M, CRP2, LDH3, FIBGN, DDI2, APTT, FERR3 #### [facility] [address] [place] [address] MCH (RBC) [Entitic mass] 28.8 pg Normal 26.0-34.0 [facility] Comment on above: Performed By: #### H EMOG, CMP3M, CRP2, LDH3, FIBGN, DDI2, APTT, FERR3 #### [facility] [address] [place] [address] MCHC (RBC) [Mass/Vol] 32.7 % Normal 32.0-36.0 [facility] Comment on above: Performed By: #### H EMOG, CMP3M, CRP2, LDH3, FIBGN, DDI2, APTT, FERR3 #### [facility] [address] [place] [address] MCV (RBC) [Entitic vol] 88.1 fL Normal 80.0-98.0 [facility] Comment on above: Performed By: #### H EMOG, CMP3M, CRP2, LDH3, FIBGN, DDI2, APTT, FERR3 #### [facility] [address] [place] [address] Platelet mean volume (Bld) [Entitic vol] 7.9 fL Normal 7.4-10.4 [facility] Comment on above: Performed By: #### H EMOG, CMP3M, CRP2, LDH3, FIBGN, DDI2, APTT, FERR3 #### [facility] [address] [place] [address] Platelets (Bld) [#/Vol] 356 10*3/uL Normal 140-440 [facility] Comment on above: Performed By: #### H EMOG, CMP3M, CRP2, LDH3, FIBGN, DDI2, APTT, FERR3 #### [facility] [address] [place] [address] RBC (Bld) [#/Vol] 4.78 10*6/uL Normal 4.40-5.90 [facility] Comment on above: Performed By: #### H EMOG, CMP3M, CRP2, LDH3, FIBGN, DDI2, APTT, FERR3 #### [facility] [address] [place] [address] WBC (Bld) [#/Vol] 16.4 10*3/uL High 3.6-10.7 [facility] Comment on above: Performed By: #### H EMOG, CMP3M, CRP2, LDH3, FIBGN, DDI2, APTT, FERR3 #### [facility] [address] [place] [address] Manual Diffon 11-04-2020 Abs Baso Cnt 0.0 10*3/uL Normal 0.0-0.2 [facility] Comment on above: Performed By: #### H EMOG, CMP3M, CRP2, LDH3, FIBGN, DDI2, APTT, FERR3 #### [facility] [address] [place] [address] Abs Eosin Cnt 0.0 10*3/uL Normal 0.0-0.5 [facility] Comment on above: Performed By: #### H EMOG, CMP3M, CRP2, LDH3, FIBGN, DDI2, APTT, FERR3 #### [facility] [address] [place] [address] Abs Lymph Cnt 1.0 10*3/uL Low 1.1-4.5 [facility] Comment on above: Performed By: #### H EMOG, CMP3M, CRP2, LDH3, FIBGN, DDI2, APTT, FERR3 #### [facility] [address] [place] [address] Abs Monocyte Cnt 1.3 10*3/uL High 0.2-1.1 [facility] Comment on above: Performed By: #### H EMOG, CMP3M, CRP2, LDH3, FIBGN, DDI2, APTT, FERR3 #### [facility] [address] [place] [address] Abs Neutrophile Cnt 13.1 10*3/uL High 2.2-8.2 [facility] Comment on above: Performed By: #### H EMOG, CMP3M, CRP2, LDH3, FIBGN, DDI2, APTT, FERR3 #### [facility] [address] [place] [facility] Anisocytosis Ql (Bld) Slight Normal [facility] Comment on above: Performed By: #### H EMOG, CMP3M, CRP2, LDH3, FIBGN, DDI2, APTT, FERR3 #### [facility] [address] [place] [address] Bands 2 % Normal 0-3 [facility] Comment on above: Performed By: #### H EMOG, CMP3M, CRP2, LDH3, FIBGN, DDI2, APTT, FERR3 #### [facility] [address] [place] [address] Basophils 0 % Normal 0-2 [facility] Comment on above: Performed By: #### H EMOG, CMP3M, CRP2, LDH3, FIBGN, DDI2, APTT, FERR3 #### [facility] [address] [place] [address] Victoria Cells Slight Normal [facility] Comment on above: Performed By: #### H EMOG, CMP3M, CRP2, LDH3, FIBGN, DDI2, APTT, FERR3 #### [facility] [address] [place] [address] Cells counted 100 Normal [facility] Comment on above: Performed By: #### H EMOG, CMP3M, CRP2, LDH3, FIBGN, DDI2, APTT, FERR3 #### [facility] [address] [place] [address] Eosinophils 0 % Low 1-6 [facility] Comment on above: Performed By: #### H EMOG, CMP3M, CRP2, LDH3, FIBGN, DDI2, APTT, FERR3 #### [facility] [address] [place] [address] Lymphocytes 6 % Low 20-40 [facility] Comment on above: Performed By: #### H EMOG, CMP3M, CRP2, LDH3, FIBGN, DDI2, APTT, FERR3 #### [facility] [address] [place] [address] Metamyelocytes 5 % Abnormal <1 [facility] Comment on above: Performed By: #### H EMOG, CMP3M, CRP2, LDH3, FIBGN, DDI2, APTT, FERR3 #### [facility] [address] [place] [address] Monocytes 8 % Normal 2-10 [facility] Comment on above: Performed By: #### H EMOG, CMP3M, CRP2, LDH3, FIBGN, DDI2, APTT, FERR3 #### [facility] [address] [place] [address] Myelocytes 1 % Abnormal <1 [facility] Comment on above: Performed By: #### H EMOG, CMP3M, CRP2, LDH3, FIBGN, DDI2, APTT, FERR3 #### [facility] [address] [place] [address] Poikilocytosis Slight Normal [facility] Comment on above: Performed By: #### H EMOG, CMP3M, CRP2, LDH3, FIBGN, DDI2, APTT, FERR3 #### [facility] [address] [place] [address] RBC morphology finding Nom (Bld) ABNORMAL Normal [facility] Comment on above: Performed By: #### H EMOG, CMP3M, CRP2, LDH3, FIBGN, DDI2, APTT, FERR3 #### [facility] [address] [place] [address] Seg Neutrophils 78 % Normal 40-80 [facility] Comment on above: Performed By: #### H EMOG, CMP3M, CRP2, LDH3, FIBGN, DDI2, APTT, FERR3 #### [facility] [address] [place] [address] Manual Differentialon 2019 Absolute Baso # 0.0 10*3/uL 0 - 0.2 10*3/uL [place] Absolute Eos # 0.0 10*3/uL 0 - 0.5 10*3/uL [place] Absolute Lymph # 1.0 10*3/uL Low 1.1 - 4.5 10*3/uL [place] Absolute [place] # 1.3 10*3/uL High 0.2 - 1.1 10*3/uL [place] Absolute Neut # 13.1 10*3/uL High 2.2 - 8.2 10*3/uL [place] Anisocytosis Ql (Bld) Slight [facility], [place] Bands 2 % 0 - 3 % [facility], [place] Basophils 0 % 0 - 2 % [facility], [place] Danya Cells Slight [place] Eosinophils 0 % Low 1 - 6 % [place] Interpretation and review of laboratory results Abnormal [place] Lymphocytes 6 % Low 20 - 40 % [place] Metamyelocytes 5 % Abnormal <1 [place] Monocytes 8 % 2 - 10 % [place] Myelocytes 1 % Abnormal <1 [place] Poikilocytes Slight [place] RBC morphology finding Nom (Bld) ABNORMAL [place] Seg Neutrophils 78 % 40 - 80 % [place] TOTAL CELLS COUNTED 100 [place] Test Performed by [facility], [address] [place], [place] [address] [place] Add On Lab Teston 11-03-2020 Sodium [Moles/Vol] Accepted [place] Comment on above: Specimen available & acceptable for analysis. Test Performed by [facility], [address] [place], [place] [address] [place] Add on test from HISon 11-03 Add on test from HIS Accepted Normal [facility] Comment on above: Result Comment: Spec imen available & acceptable for analysis. Performed By: #### H EMOG, CMP3M, CRP2, LDH3, FIBGN, DDI2, APTT, FERR3 #### [facility] [address] [place] [address] CBC Auto Differentialon 10-15 Erythrocyte distribution width (RBC) [Ratio] 14.3 % 11.5 - 14.5 % [place] Hematocrit (Bld) [Volume fraction] 39.0 % Low 40 - 52 % [place] Hemoglobin (Bld) [Mass/Vol] 12.8 g/dL Low 13 - 18 g/dL [place] Interpretation and review of laboratory results Abnormal [place] MCH (RBC) [Entitic mass] 28.7 pg 26 - 34 pg [place] MCHC (RBC) [Mass/Vol] 32.8 % 32 - 36 % [place] MCV (RBC) [Entitic vol] 87.6 fL 80 - 98 fL [place] Platelet mean volume (Bld) [Entitic vol] 7.5 fL 7.4 - 10.4 fL [place] Platelets (Bld) [#/Vol] 332 10*3/uL 140 - 440 10*3/uL [place] RBC (Bld) [#/Vol] 4.45 10*6/uL 4.4 - 5.9 10*6/uL [place] WBC (Bld) [#/Vol] 15.6 10*3/uL High 3.6 - 10.7 10*3/uL [place] Test Performed by [facility], [address], [place], [place] [address] [place] CR Chest PA/LATon 11-03-2020 CR Chest PA/LAT Patient Name: REGGIE LEÓN Diagnostic Radiology ACCESSION EXAM DATE/TIME PROCEDURE ORDERING PROVIDER [id number] 11/03/2020 10:20 EST CR Chest PA and LAT MD EMILY, FARRUKH MCCORMICK CPT code 45484 Reason For Exam (CR Chest PA and [...] Transcribed Date and Time: 11/03/2020 10:59 Normal [facility] Comp Panel with Mg Reflexon 11-03-2020 Calcium [Mass/Vol] 9.0 mg/dL Normal 8.4-10.4 [facility] Comment on above: Performed By: #### H EMOG, CMP3M, CRP2, LDH3, FIBGN, DDI2, APTT, FERR3 #### [facility] [address] [place] [address] Anion gap [Moles/Vol] 5 Normal [facility] Comment on above: Performed By: #### H EMOG, CMP3M, CRP2, LDH3, FIBGN, DDI2, APTT, FERR3 #### [facility] [address] [place] [address] Bilirubin [Mass/Vol] 0.7 mg/dL Normal 0.2-1.3 [facility] Comment on above: Performed By: #### H EMOG, CMP3M, CRP2, LDH3, FIBGN, DDI2, APTT, FERR3 #### [facility] [address] [place] [address] Creatinine [Mass/Vol] 2.08 mg/dL High 0.52-1.25 [facility] Comment on above: Performed By: #### H EMOG, CMP3M, CRP2, LDH3, FIBGN, DDI2, APTT, FERR3 #### [facility] [address] [place] [address] GFR/1.73 sq M predicted among blacks MDRD (S/P/Bld) [Vol rate/Area] 39.6 mL/min/{1.73_m2} Abnormal >60 [facility] Comment on above: Performed By: #### H EMOG, CMP3M, CRP2, LDH3, FIBGN, DDI2, APTT, FERR3 #### [facility] [address] [place] [address] GFR/1.73 sq M predicted among non-blacks MDRD (S/P/Bld) [Vol rate/Area] 34.2 mL/min/{1.73_m2} Abnormal >60 [facility] Comment on above: Result Comment: KDIG O [...] CRP2, LDH3, FIBGN, DDI2, APTT, FERR3 #### [facility] [address] [place] [address] Albumin [Mass/Vol] 3.4 g/dL Low 3.5-5.0 [facility] Comment on above: Performed By: #### H EMOG, CMP3M, CRP2, LDH3, FIBGN, DDI2, APTT, FERR3 #### [facility] [address] [place] [address] Chloride [Moles/Vol] 107 mmol/L Normal 98-107 [facility] Comment on above: Performed By: #### H EMOG, CMP3M, CRP2, LDH3, FIBGN, DDI2, APTT, FERR3 #### [facility] [address] [place] [address] Potassium [Moles/Vol] 3.8 mmol/L Normal 3.5-5.1 [facility] Comment on above: Performed By: #### H EMOG, CMP3M, CRP2, LDH3, FIBGN, DDI2, APTT, FERR3 #### [facility] [address] [place] [address] Sodium [Moles/Vol] 134 mmol/L Low 135-145 [facility] Comment on above: Performed By: #### H EMOG, CMP3M, CRP2, LDH3, FIBGN, DDI2, APTT, FERR3 #### [facility] [address] [place] [address] ALP [Catalytic activity/Vol] 83 U/L Normal 38-126 [facility], [place] Comment on above: Performed By: #### H EMOG, CMP3M, CRP2, LDH3, FIBGN, DDI2, APTT, FERR3 #### [facility] [address] [place] [address] ALT [Catalytic activity/Vol] 175 U/L High 0-49 [place], [place] Comment on above: Result Comment: The ALT test is performed by an updated assay method. Please note that the reference intervals have been changed and are now sex specific. Performed By: #### H EMOG, CMP3M, CRP2, LDH3, FIBGN, DDI2, APTT, FERR3 #### [facility] [address] [place] [address] The ALT test is perf ormed by an updated assay method. Please note that the reference intervals have been changed and are now sex specific. AST [Catalytic activity/Vol] 63 U/L High 15-46 [place], [place] Comment on above: Performed By: #### H EMOG, CMP3M, CRP2, LDH3, FIBGN, DDI2, APTT, FERR3 #### [facility] [address] [place] [address] CO2 [Moles/Vol] 21 mmol/L Low 22-30 [place], [place] Comment on above: Performed By: #### H EMOG, CMP3M, CRP2, LDH3, FIBGN, DDI2, APTT, FERR3 #### [facility] [address] [place] [address] Glucose [Mass/Vol] 139 mg/dL High 70-100 [place], [place] Comment on above: Performed By: #### H EMOG, CMP3M, CRP2, LDH3, FIBGN, DDI2, APTT, FERR3 #### [facility] [address] [place] [address] Protein [Mass/Vol] 5.9 g/dL Low 6.3-8.2 [place] Comment on above: Performed By: #### H EMOG, CMP3M, CRP2, LDH3, FIBGN, DDI2, APTT, FERR3 #### [facility] [address] [place] [address] Urea nitrogen [Mass/Vol] 43 mg/dL High 7-20 [place], [place] Comment on above: Performed By: #### H EMOG, CMP3M, CRP2, LDH3, FIBGN, DDI2, APTT, FERR3 #### [facility] [address] [place] [address] Comprehensive Metabolic Pane l w/ Reflex to MGon 11-03-2020 Albumin [Mass/Vol] 3.4 g/dL Low 3.5 - 5 g/dL [place] Anion gap [Moles/Vol] 5 mmol/L [place], [place] Bilirubin Ql (U) 0.7 mg/dL 0.2 - 1.3 mg/dL [place] Calcium [Mass/Vol] 9.0 mg/dL 8.4 - 10. 4 mg/dL [place] Chloride [Moles/Vol] 107 mmol/L 98 - 10 7 mmol/L [place] Creatinine [Mass/Vol] 2.08 mg/dL High 0.52 - 1.25 mg/dL [place] EGFR IF NonAfrican Lithuanian 34.2 mL/min Abnormal >60 [place], [place] Comment on above: KDIGO guidelines pro [...] (S/P/Bld) [Vol rate/Area] 39.6 mL/min/{1.73_m2} Abnormal >60 [place] Interpretation and review of laboratory results Abnormal [place] Potassium [Moles/Vol] 3.8 mmol/L 3.5 - 5.1 mmol/L [place] Sodium [Moles/Vol] 134 mmol/L Low 135 - 145 mmol/L [place] Test Performed by [facility], [address] [place] [address] [place] Hemogram w/ Autodiffon 11-03 Erythrocyte distribution width (RBC) [Ratio] 14.3 % Normal 11.5-14.5 [facility] Comment on above: Performed By: #### H EMOG, CMP3M, CRP2, LDH3, FIBGN, DDI2, APTT, FERR3 #### [facility] [address] [place] [address] Hematocrit (Bld) [Volume fraction] 39.0 % Low 40.0-52.0 [facility] Comment on above: Performed By: #### H EMOG, CMP3M, CRP2, LDH3, FIBGN, DDI2, APTT, FERR3 #### [facility] [address] [place] [address] Hemoglobin (Bld) [Mass/Vol] 12.8 g/dL Low 13.0-18.0 [facility] Comment on above: Performed By: #### H EMOG, CMP3M, CRP2, LDH3, FIBGN, DDI2, APTT, FERR3 #### [facility] [address] [place] [address] MCH (RBC) [Entitic mass] 28.7 pg Normal 26.0-34.0 [facility] Comment on above: Performed By: #### H EMOG, CMP3M, CRP2, LDH3, FIBGN, DDI2, APTT, FERR3 #### [facility] [address] [place] [address] MCHC (RBC) [Mass/Vol] 32.8 % Normal 32.0-36.0 [facility] Comment on above: Performed By: #### H EMOG, CMP3M, CRP2, LDH3, FIBGN, DDI2, APTT, FERR3 #### [facility] [address] [place] [address] MCV (RBC) [Entitic vol] 87.6 fL Normal 80.0-98.0 [facility] Comment on above: Performed By: #### H EMOG, CMP3M, CRP2, LDH3, FIBGN, DDI2, APTT, FERR3 #### [facility] [address] [place] [address] Platelet mean volume (Bld) [Entitic vol] 7.5 fL Normal 7.4-10.4 [facility] Comment on above: Performed By: #### H EMOG, CMP3M, CRP2, LDH3, FIBGN, DDI2, APTT, FERR3 #### [facility] [address] [place] [address] Platelets (Bld) [#/Vol] 332 10*3/uL Normal 140-440 [facility] Comment on above: Performed By: #### H EMOG, CMP3M, CRP2, LDH3, FIBGN, DDI2, APTT, FERR3 #### [facility] [address] [place] [address] RBC (Bld) [#/Vol] 4.45 10*6/uL Normal 4.40-5.90 [facility] Comment on above: Performed By: #### H EMOG, CMP3M, CRP2, LDH3, FIBGN, DDI2, APTT, FERR3 #### [facility] [address] [place] [address] WBC (Bld) [#/Vol] 15.6 10*3/uL High 3.6-10.7 [facility] Comment on above: Performed By: #### H EMOG, CMP3M, CRP2, LDH3, FIBGN, DDI2, APTT, FERR3 #### [facility] [address] [place] [address] Manual Diffon 11-03-2020 Abs Lymph Cnt 2.0 10*3/uL Normal 1.1-4.5 [facility] Comment on above: Performed By: #### H EMOG, CMP3M, CRP2, LDH3, FIBGN, DDI2, APTT, FERR3 #### [facility] [address] [place] [address] Abs Monocyte Cnt 2.2 10*3/uL High 0.2-1.1 [facility] Comment on above: Performed By: #### H EMOG, CMP3M, CRP2, LDH3, FIBGN, DDI2, APTT, FERR3 #### [facility] [address] [place] [address] Abs Neutrophile Cnt 11.4 10*3/uL High 2.2-8.2 [facility] Comment on above: Performed By: #### H EMOG, CMP3M, CRP2, LDH3, FIBGN, DDI2, APTT, FERR3 #### [facility] [address] [place] [address] Anisocytosis Ql (Bld) Slight Normal [facility] Comment on above: Performed By: #### H EMOG, CMP3M, CRP2, LDH3, FIBGN, DDI2, APTT, FERR3 #### [facility] [address] [place] [address] Bands 4 % High 0-3 [facility] Comment on above: Performed By: #### H EMOG, CMP3M, CRP2, LDH3, FIBGN, DDI2, APTT, FERR3 #### [facility] [address] [place] [address] Danya Cells Slight Normal [facility] Comment on above: Performed By: #### H EMOG, CMP3M, CRP2, LDH3, FIBGN, DDI2, APTT, FERR3 #### [facility] [address] [place] [address] Lymphocytes 13 % Low 20-40 [facility] Comment on above: Performed By: #### H EMOG, CMP3M, CRP2, LDH3, FIBGN, DDI2, APTT, FERR3 #### [facility] [address] [place] [address] Monocytes 14 % High 2-10 [facility] Comment on above: Performed By: #### H EMOG, CMP3M, CRP2, LDH3, FIBGN, DDI2, APTT, FERR3 #### [facility] [address] [place] [address] NRBC 1 /100{WBCs} High -1-0 [facility] Comment on above: Result Comment: Newb orn (<60 days) 1-10 Adult <1 Performed By: #### H EMOG, CMP3M, CRP2, LDH3, FIBGN, DDI2, APTT, FERR3 #### [facility] [address] [place] [address] RBC morphology finding Nom (Bld) ABNORMAL Normal [facility] Comment on above: Performed By: #### H EMOG, CMP3M, CRP2, LDH3, FIBGN, DDI2, APTT, FERR3 #### [facility] [address] [place] [address] Seg Neutrophils 69 % Normal 40-80 [facility] Comment on above: Performed By: #### H EMOG, CMP3M, CRP2, LDH3, FIBGN, DDI2, APTT, FERR3 #### [facility] [address] [place] [address] Tear Drop Forms Slight Normal [facility] Comment on above: Performed By: #### H EMOG, CMP3M, CRP2, LDH3, FIBGN, DDI2, APTT, FERR3 #### [facility] [address] [place] [address] Abs Baso Cnt 0.0 10*3/uL Normal 0.0-0.2 [facility] Comment on above: Performed By: #### H EMOG, CMP3M, CRP2, LDH3, FIBGN, DDI2, APTT, FERR3 #### [facility] [address] [place] [address] Abs Eosin Cnt 0.0 10*3/uL Normal 0.0-0.5 [facility] Comment on above: Performed By: #### H EMOG, CMP3M, CRP2, LDH3, FIBGN, DDI2, APTT, FERR3 #### [facility] [address] [place] [address] Basophils 0 % Normal 0-2 [facility] Comment on above: Performed By: #### H EMOG, CMP3M, CRP2, LDH3, FIBGN, DDI2, APTT, FERR3 #### [facility] [address] [place] [address] Cells counted 100 Normal [facility] Comment on above: Performed By: #### H EMOG, CMP3M, CRP2, LDH3, FIBGN, DDI2, APTT, FERR3 #### [facility] [address] [place] [address] Eosinophils 0 % Low 1-6 [facility] Comment on above: Performed By: #### H EMOG, CMP3M, CRP2, LDH3, FIBGN, DDI2, APTT, FERR3 #### [facility] [address] [place] [address] Manual Differentialon 2019 Absolute Baso # 0.0 10*3/uL 0 - 0.2 10*3/uL [facility], [place] Absolute Eos # 0.0 10*3/uL 0 - 0.5 10*3/uL [facility], [place] Absolute Lymph # 2.0 10*3/uL 1.1 - 4.5 10*3/uL [facility], [place] Absolute [place] # 2.2 10*3/uL High 0.2 - 1.1 10*3/uL [facility], [place] Absolute Neut # 11.4 10*3/uL High 2.2 - 8.2 10*3/uL [facility], [place] Anisocytosis Ql (Bld) Slight [facility], [place] Bands 4 % High 0 - 3 % [facility] Basophils 0 % 0 - 2 % [facility], [place] Danya Cells Slight [facility] Eosinophils 0 % Low 1 - 6 % [facility], [place] Interpretation and review of laboratory results Abnormal [facility], [place] Lymphocytes 13 % Low 20 - 40 % [facility], [place] Monocytes 14 % High 2 - 10 % [facility] [place] nRBC 1 /100{WBCs} High -1 - 0 /100{WBCs} [facility] [place] Comment on above: (<60 days) 1 -10 Adult <1 RBC morphology finding Nom (Bld) ABNORMAL [facility], [place] Seg Neutrophils 69 % 40 - 80 % [facility] [place] Tear Drop Cells Slight [facility] TOTAL CELLS COUNTED 100 [facility], [place] Test Performed by [facility], [address] [place], [place] [address] [place] Procalcitoninon 11-03-2020 Procalcitonin < 0.10 Normal <0.10 [facility] Comment on above: Performed By: #### H EMOG, CMP3M, CRP2, LDH3, FIBGN, DDI2, APTT, FERR3 #### [facility] [address] [place] [address] Procalcitonin <0.10 <0.10 ng/mL [place], [place] Sodium [Moles/Vol] See Below [place], [place] Comment on above: PCT <0.50 = Low risk of severe sepsis and/or septic shock. PCT >2.00 = High risk of severe sepsis and/or septic shock. Test Performed by [facility], [address] [place] [address] [place], [place] Interpretation See Below Normal [facility] Comment on above: Result Comment: PCT <0.50 = Low risk of severe sepsis and/or septic shock. PCT >2.00 = High risk of severe sepsis and/or septic shock. Performed By: #### H EMOG, CMP3M, CRP2, LDH3, FIBGN, DDI2, APTT, FERR3 #### [facility] [address] [place] [address] XR CHEST (2 VW)on 11-03-2020 Michel, [facility] Incoming Radiology Results From [facility] - 11/03/2020 10:59 AM EST Patient Name: REGGIE LEÓN Diagnostic Radiology ACCESSION EXAM DATE/TIME PROCEDURE ORDERING PROVIDER [id number] 11/03/2020 10:20 EST CR Chest PA & LAT MD EMILY, FARRUKH MCCORMICK CPT code 92908 Reason For Exam (CR Chest PA & [...] JEFFREY Transcribed Date and Time: 11/03/2020 10:59 [place] Patient Name: REGGIE LEÓN Diagnostic Radiology ACCESSION EXAM DATE/TIME PROCEDURE ORDERING PROVIDER [id number] 11/03/2020 10:20 EST CR Chest PA & LAT MD EMILY, FARRUKH MCCORMICK CPT code 71104 Reason For Exam (CR Chest PA & [...] JEFFREY Transcribed Date and Time: 11/03/2020 10:59 [place] APTTon 11-02-2020 aPTT Coag (Bld) [Time] 30.4 s Normal 20.0-30.5 [facility] Comment on above: Result Comment: NOTE : The therapeutic time for Heparin anticoagulation, based on Xa activity inhibition, is an APTT of 46-80 seconds. Performed By: #### H EMOG, CMP3M, CRP2, LDH3, FIBGN, DDI2, APTT, FERR3 #### [facility] [address] [place] [address] aPTT Coag (Bld) [Time] 30.4 s 20 - 30.5 s [place], [place] Comment on above: NOTE: The therapeuti c time for Heparin anticoagulation, based on Xa activity inhibition, is an APTT of 46-80 seconds. C-Reactive Proteinon CRP [Mass/Vol] 10.2 mg/L High 0.0-6.0 [facility] Comment on above: Result Comment: . Performed By: #### H EMOG, CMP3M, CRP2, LDH3, FIBGN, DDI2, APTT, FERR3 #### [facility] [address] [place] [address] CRP [Mass/Vol] 10.2 mg/L High 0 - 6 mg/L [place], [place] Comment on above: . CBCon 11-02-2020 Erythrocyte distribution width (RBC) [Ratio] 14.2 % 11.5 - 14.5 % [place] Hematocrit (Bld) [Volume fraction] 39.5 % Low 40 - 52 % [place] Hemoglobin (Bld) [Mass/Vol] 13.2 g/dL 13 - 18 g/dL [place], [place] Interpretation and review of laboratory results Abnormal [place] MCH (RBC) [Entitic mass] 29.4 pg 26 - 34 pg [place] MCHC (RBC) [Mass/Vol] 33.5 % 32 - 36 % [place] MCV (RBC) [Entitic vol] 87.8 fL 80 - 98 fL [place] Platelet mean volume (Bld) [Entitic vol] 7.6 fL 7.4 - 10.4 fL [place] Platelets (Bld) [#/Vol] 340 10*3/uL 140 - 440 10*3/uL [place] RBC (Bld) [#/Vol] 4.49 10*6/uL 4.4 - 5.9 10*6/uL [place] WBC (Bld) [#/Vol] 13.0 10*3/uL High 3.6 - 10.7 10*3/uL [place] Test Performed by [facility], [address], [place], [place] [address] [facility] [place], [place] Comp Panel with Mg Reflexon 11-02-2020 ALT [Catalytic activity/Vol] 198 U/L High 0-49 [facility] Comment on above: Result Comment: The ALT test is performed by an updated assay method. Please note that the reference intervals have been changed and are now sex specific. Performed By: #### H EMOG, CMP3M, CRP2, LDH3, FIBGN, DDI2, APTT, FERR3 #### [facility] [address] [place] [address] Calcium [Mass/Vol] 8.8 mg/dL Normal 8.4-10.4 [facility] Comment on above: Performed By: #### H EMOG, CMP3M, CRP2, LDH3, FIBGN, DDI2, APTT, FERR3 #### [facility] [address] [place] [address] Glucose [Mass/Vol] 135 mg/dL High 70-100 [facility] Comment on above: Performed By: #### H EMOG, CMP3M, CRP2, LDH3, FIBGN, DDI2, APTT, FERR3 #### [facility] [address] [place] [address] ALP [Catalytic activity/Vol] 85 U/L Normal 38-126 [facility] Comment on above: Performed By: #### H EMOG, CMP3M, CRP2, LDH3, FIBGN, DDI2, APTT, FERR3 #### [facility] [address] [place] [address] Anion gap [Moles/Vol] 9 Normal [facility] Comment on above: Performed By: #### H EMOG, CMP3M, CRP2, LDH3, FIBGN, DDI2, APTT, FERR3 #### [facility] [address] [place] [address] AST [Catalytic activity/Vol] 104 U/L High 15-46 [facility] Comment on above: Performed By: #### H EMOG, CMP3M, CRP2, LDH3, FIBGN, DDI2, APTT, FERR3 #### [facility] [address] [place] [address] Bilirubin [Mass/Vol] 0.7 mg/dL Normal 0.2-1.3 [facility] Comment on above: Performed By: #### H EMOG, CMP3M, CRP2, LDH3, FIBGN, DDI2, APTT, FERR3 #### [facility] [address] [place] [address] CO2 [Moles/Vol] 18 mmol/L Low 22-30 [facility] Comment on above: Performed By: #### H EMOG, CMP3M, CRP2, LDH3, FIBGN, DDI2, APTT, FERR3 #### [facility] [address] [place] [address] Creatinine [Mass/Vol] 1.89 mg/dL High 0.52-1.25 [facility] Comment on above: Performed By: #### H EMOG, CMP3M, CRP2, LDH3, FIBGN, DDI2, APTT, FERR3 #### [facility] [address] [place] [address] GFR/1.73 sq M predicted among blacks MDRD (S/P/Bld) [Vol rate/Area] 44.5 mL/min/{1.73_m2} Abnormal >60 [facility] Comment on above: Performed By: #### H EMOG, CMP3M, CRP2, LDH3, FIBGN, DDI2, APTT, FERR3 #### [facility] [address] [place] [address] GFR/1.73 sq M predicted among non-blacks MDRD (S/P/Bld) [Vol rate/Area] 38.4 mL/min/{1.73_m2} Abnormal >60 [facility] Comment on above: Result Comment: KDIG O [...] CRP2, LDH3, FIBGN, DDI2, APTT, FERR3 #### [facility] [address] [place] [address] Protein [Mass/Vol] 6.1 g/dL Low 6.3-8.2 [facility] Comment on above: Performed By: #### H EMOG, CMP3M, CRP2, LDH3, FIBGN, DDI2, APTT, FERR3 #### [facility] [address] [place] [address] Urea nitrogen [Mass/Vol] 35 mg/dL High 7-20 [facility] Comment on above: Performed By: #### H EMOG, CMP3M, CRP2, LDH3, FIBGN, DDI2, APTT, FERR3 #### [facility] [address] [place] [address] Potassium [Moles/Vol] 4.3 mmol/L Normal 3.5-5.1 [facility] Comment on above: Performed By: #### H EMOG, CMP3M, CRP2, LDH3, FIBGN, DDI2, APTT, FERR3 #### [facility] [address] [place] [address] Albumin [Mass/Vol] 3.3 g/dL Low 3.5-5.0 [facility] Comment on above: Performed By: #### H EMOG, CMP3M, CRP2, LDH3, FIBGN, DDI2, APTT, FERR3 #### [facility] [address] [place] [address] Chloride [Moles/Vol] 110 mmol/L High 98-107 [facility] Comment on above: Performed By: #### H EMOG, CMP3M, CRP2, LDH3, FIBGN, DDI2, APTT, FERR3 #### [facility] [address] [place] [address] Sodium [Moles/Vol] 137 mmol/L Normal 135-145 [facility] Comment on above: Performed By: #### H EMOG, CMP3M, CRP2, LDH3, FIBGN, DDI2, APTT, FERR3 #### [facility] [address] [place] [address] Comprehensive Metabolic Pane l w/ Reflex to MGon 11-02-2020 Albumin [Mass/Vol] 3.3 g/dL Low 3.5 - 5 g/dL [place] ALP [Catalytic activity/Vol] 85 U/L 38 - 126 U/L [place] ALT [Catalytic activity/Vol] 198 U/L High 0 - 49 U/L [place] Comment on above: The ALT test is perf ormed by an updated assay method. Please note that the reference intervals have been changed and are now sex specific. Anion gap [Moles/Vol] 9 mmol/L [place] AST [Catalytic activity/Vol] 104 U/L High 15 - 46 U/L [place] Bilirubin Ql (U) 0.7 mg/dL 0.2 - 1.3 mg/dL [place] Calcium [Mass/Vol] 8.8 mg/dL 8.4 - 10. 4 mg/dL [place] Chloride [Moles/Vol] 110 mmol/L High 98 - 10 7 mmol/L [place] CO2 [Moles/Vol] 18 mmol/L Low 22 - 30 mmol/L [place] Creatinine [Mass/Vol] 1.89 mg/dL High 0.52 - 1.25 mg/dL [place] EGFR IF NonAfrican Lithuanian 38.4 mL/min Abnormal >60 [place] Comment on above: KDIGO guidelines pro [...] (S/P/Bld) [Vol rate/Area] 44.5 mL/min/{1.73_m2} Abnormal >60 [place] Glucose [Mass/Vol] 135 mg/dL High 70 - 100 mg/dL [place] Potassium [Moles/Vol] 4.3 mmol/L 3.5 - 5.1 mmol/L [facility], [place] Protein [Mass/Vol] 6.1 g/dL Low 6.3 - 8.2 g/dL [place] Sodium [Moles/Vol] 137 mmol/L 135 - 145 mmol/L [facility], [place] Urea nitrogen [Mass/Vol] 35 mg/dL High 7 - 20 mg/dL [place] D-Dimer, Innovanceon 11-02-2 020 D-Dimer, Innovance 0.83 mg/L High 0.00-0.50 [facility] Comment on above: Result Comment: Inno quach D-Dimer values of <0.50 mg/L FEU can be used in combination with a pre-test probability model (e.g. Well's) to exclude pulmonary embolism (PE) disease, as well as an aid in the diagnosis of deep vein thrombosis (DVT). Performed By: #### H EMOG, CMP3M, CRP2, LDH3, FIBGN, DDI2, APTT, FERR3 #### [employer] [address] [place] [address] D-Dimer, Quantitativeon 12-2 0-2020 D-Dimer, Quant 0.83 mg/L High 0 - 0.5 mg/L [place] Comment on above: [employer] D-Dimer va lues of <0.50 mg/L FEU can be used in combination with a pre-test probability model (e.g. Well's) to exclude pulmonary embolism (PE) disease, as well as an aid in the diagnosis of deep vein thrombosis (DVT). Interpretation and review of laboratory results Abnormal [place] Ferritinon 11-02-2020 Ferritin [Mass/Vol] 938 ng/mL High 18-464 [facility] Comment on above: Performed By: #### H EMOG, CMP3M, CRP2, LDH3, FIBGN, DDI2, APTT, FERR3 #### [facility] [address] [place] [address] Ferritin [Mass/Vol] 938 ng/mL High 18 - 464 ng/mL [place] Interpretation and review of laboratory results Abnormal [place] Test Performed by [facility], [address] [place], [place] [address] [place] Fibrinogenon 11-02-2020 Fibrinogen 373 mg/dL Normal 200-400 [facility] Comment on above: Performed By: #### H EMOG, CMP3M, CRP2, LDH3, FIBGN, DDI2, APTT, FERR3 #### [facility] [address] [place] [address] Fibrinogen 373 mg/dL 200 - 400 mg/dL [place], [place] Hemogramon 11-02-2020 Erythrocyte distribution width (RBC) [Ratio] 14.2 % Normal 11.5-14.5 [facility] Comment on above: Performed By: #### H EMOG, CMP3M, CRP2, LDH3, FIBGN, DDI2, APTT, FERR3 #### [facility] [address] [place] [address] Hematocrit (Bld) [Volume fraction] 39.5 % Low 40.0-52.0 [facility] Comment on above: Performed By: #### H EMOG, CMP3M, CRP2, LDH3, FIBGN, DDI2, APTT, FERR3 #### [facility] [address] [place] [address] Hemoglobin (Bld) [Mass/Vol] 13.2 g/dL Normal 13.0-18.0 [facility] Comment on above: Performed By: #### H EMOG, CMP3M, CRP2, LDH3, FIBGN, DDI2, APTT, FERR3 #### [facility] [address] [place] [address] MCH (RBC) [Entitic mass] 29.4 pg Normal 26.0-34.0 [facility] Comment on above: Performed By: #### H EMOG, CMP3M, CRP2, LDH3, FIBGN, DDI2, APTT, FERR3 #### [facility] [address] [place] [address] MCHC (RBC) [Mass/Vol] 33.5 % Normal 32.0-36.0 [facility] Comment on above: Performed By: #### H EMOG, CMP3M, CRP2, LDH3, FIBGN, DDI2, APTT, FERR3 #### [facility] [address] [place] [address] MCV (RBC) [Entitic vol] 87.8 fL Normal 80.0-98.0 [facility] Comment on above: Performed By: #### H EMOG, CMP3M, CRP2, LDH3, FIBGN, DDI2, APTT, FERR3 #### [facility] [address] [place] [address] Platelet mean volume (Bld) [Entitic vol] 7.6 fL Normal 7.4-10.4 [facility] Comment on above: Performed By: #### H EMOG, CMP3M, CRP2, LDH3, FIBGN, DDI2, APTT, FERR3 #### [facility] [address] [place] [address] Platelets (Bld) [#/Vol] 340 10*3/uL Normal 140-440 [facility] Comment on above: Performed By: #### H EMOG, CMP3M, CRP2, LDH3, FIBGN, DDI2, APTT, FERR3 #### [facility] [address] [place] [address] RBC (Bld) [#/Vol] 4.49 10*6/uL Normal 4.40-5.90 [facility] Comment on above: Performed By: #### H EMOG, CMP3M, CRP2, LDH3, FIBGN, DDI2, APTT, FERR3 #### [facility] [address] [place] [address] WBC (Bld) [#/Vol] 13.0 10*3/uL High 3.6-10.7 [facility] Comment on above: Performed By: #### H EMOG, CMP3M, CRP2, LDH3, FIBGN, DDI2, APTT, FERR3 #### [facility] [address] [place] [address] LDHon 11-02-2020 LDH 589 U/L High 120-246 [facility] Comment on above: Performed By: #### H EMOG, CMP3M, CRP2, LDH3, FIBGN, DDI2, APTT, FERR3 #### [facility] [address] [place] [address] Lactate Dehydrogenaseon 10-15 0-2019 LD 589 U/L High 120 - 246 U/L [place], [place] Otheron 11-02-2020 Test Performed by [facility], [address] [place], [place] [id number] [place] [address] Interpretation and review of laboratory results Abnormal [place], [place] Test Performed by [facility], [address] [place], [place] [id number] [place] [address] C-Reactive Proteinon 020 CRP [Mass/Vol] 14.1 mg/L High 0.0-6.0 [facility] Comment on above: Result Comment: . Performed By: #### H EMOG, CMP3M, CRP2, LDH3, FIBGN, DDI2, APTT, FERR3 #### [facility] [address] [place] [address] CRP [Mass/Vol] 14.1 mg/L High 0 - 6 mg/L [place], [place] Comment on above: . Interpretation and review of laboratory results Abnormal [place] Test Performed by [facility], [address] [place] [address] [place], [place] Comp Panel with Mg Reflexon 11-01-2020 ALT [Catalytic activity/Vol] 173 U/L High 0-49 [facility] Comment on above: Result Comment: The ALT test is performed by an updated assay method. Please note that the reference intervals have been changed and are now sex specific. Performed By: #### H EMOG, CMP3M, CRP2, LDH3, FIBGN, DDI2, APTT, FERR3 #### [facility] [address] [place] [address] Calcium [Mass/Vol] 8.7 mg/dL Normal 8.4-10.4 [facility] Comment on above: Performed By: #### H EMOG, CMP3M, CRP2, LDH3, FIBGN, DDI2, APTT, FERR3 #### [facility] [address] [place] [address] ALP [Catalytic activity/Vol] 77 U/L Normal 38-126 [facility] Comment on above: Performed By: #### H EMOG, CMP3M, CRP2, LDH3, FIBGN, DDI2, APTT, FERR3 #### [facility] [address] [place] [address] Anion gap [Moles/Vol] 7 Normal [facility] Comment on above: Performed By: #### H EMOG, CMP3M, CRP2, LDH3, FIBGN, DDI2, APTT, FERR3 #### [facility] [address] [place] [address] AST [Catalytic activity/Vol] 135 U/L High 15-46 [facility] Comment on above: Performed By: #### H EMOG, CMP3M, CRP2, LDH3, FIBGN, DDI2, APTT, FERR3 #### [facility] [address] [place] [address] Bilirubin [Mass/Vol] 0.5 mg/dL Normal 0.2-1.3 [facility] Comment on above: Performed By: #### H EMOG, CMP3M, CRP2, LDH3, FIBGN, DDI2, APTT, FERR3 #### [facility] [address] [place] [address] CO2 [Moles/Vol] 18 mmol/L Low 22-30 [facility] Comment on above: Performed By: #### H EMOG, CMP3M, CRP2, LDH3, FIBGN, DDI2, APTT, FERR3 #### [facility] [address] [place] [address] Creatinine [Mass/Vol] 1.77 mg/dL High 0.52-1.25 [facility] Comment on above: Performed By: #### H EMOG, CMP3M, CRP2, LDH3, FIBGN, DDI2, APTT, FERR3 #### [facility] [address] [place] [address] GFR/1.73 sq M predicted among blacks MDRD (S/P/Bld) [Vol rate/Area] 48.2 mL/min/{1.73_m2} Abnormal >60 [facility] Comment on above: Performed By: #### H EMOG, CMP3M, CRP2, LDH3, FIBGN, DDI2, APTT, FERR3 #### [facility] [address] [place] [address] GFR/1.73 sq M predicted among non-blacks MDRD (S/P/Bld) [Vol rate/Area] 41.6 mL/min/{1.73_m2} Abnormal >60 [facility] Comment on above: Result Comment: KDIG O [...] CRP2, LDH3, FIBGN, DDI2, APTT, FERR3 #### [facility] [address] [place] [address] Glucose [Mass/Vol] 134 mg/dL High 70-100 [facility] Comment on above: Performed By: #### H EMOG, CMP3M, CRP2, LDH3, FIBGN, DDI2, APTT, FERR3 #### [facility] [address] [place] [address] Protein [Mass/Vol] 5.6 g/dL Low 6.3-8.2 [facility] Comment on above: Performed By: #### H EMOG, CMP3M, CRP2, LDH3, FIBGN, DDI2, APTT, FERR3 #### [facility] [address] [place] [address] Urea nitrogen [Mass/Vol] 32 mg/dL High 7-20 [facility] Comment on above: Performed By: #### H EMOG, CMP3M, CRP2, LDH3, FIBGN, DDI2, APTT, FERR3 #### [facility] [address] [place] [address] Potassium [Moles/Vol] 4.2 mmol/L Normal 3.5-5.1 [facility] Comment on above: Performed By: #### H EMOG, CMP3M, CRP2, LDH3, FIBGN, DDI2, APTT, FERR3 #### [facility] [address] [place] [address] Sodium [Moles/Vol] 137 mmol/L Normal 135-145 [facility] Comment on above: Performed By: #### H EMOG, CMP3M, CRP2, LDH3, FIBGN, DDI2, APTT, FERR3 #### [facility] [address] [place] [address] Albumin [Mass/Vol] 3.1 g/dL Low 3.5-5.0 [facility] Comment on above: Performed By: #### H EMOG, CMP3M, CRP2, LDH3, FIBGN, DDI2, APTT, FERR3 #### [facility] [address] [place] [address] Chloride [Moles/Vol] 113 mmol/L High 98-107 [facility] Comment on above: Performed By: #### H EMOG, CMP3M, CRP2, LDH3, FIBGN, DDI2, APTT, FERR3 #### [facility] [address] [place] [address] Comprehensive Metabolic Pane l w/ Reflex to MGon 11-01-2020 Albumin [Mass/Vol] 3.1 g/dL Low 3.5 - 5 g/dL [place] ALP [Catalytic activity/Vol] 77 U/L 38 - 126 U/L [place] ALT [Catalytic activity/Vol] 173 U/L High 0 - 49 U/L [place] Comment on above: The ALT test is perf ormed by an updated assay method. Please note that the reference intervals have been changed and are now sex specific. Anion gap [Moles/Vol] 7 mmol/L [place], [place] AST [Catalytic activity/Vol] 135 U/L High 15 - 46 U/L [place], [place] Bilirubin Ql (U) 0.5 mg/dL 0.2 - 1.3 mg/dL [place], [place] Calcium [Mass/Vol] 8.7 mg/dL 8.4 - 10. 4 mg/dL [place], [place] Chloride [Moles/Vol] 113 mmol/L High 98 - 10 7 mmol/L [place] CO2 [Moles/Vol] 18 mmol/L Low 22 - 30 mmol/L [place] Creatinine [Mass/Vol] 1.77 mg/dL High 0.52 - 1.25 mg/dL [place], [place] EGFR IF NonAfrican Lithuanian 41.6 mL/min Abnormal >60 [place] Comment on above: KDIGO guidelines pro [...] (S/P/Bld) [Vol rate/Area] 48.2 mL/min/{1.73_m2} Abnormal >60 [facility], [place] Glucose [Mass/Vol] 134 mg/dL High 70 - 100 mg/dL [facility] Potassium [Moles/Vol] 4.2 mmol/L 3.5 - 5.1 mmol/L [facility] Protein [Mass/Vol] 5.6 g/dL Low 6.3 - 8.2 g/dL [facility] Sodium [Moles/Vol] 137 mmol/L 135 - 145 mmol/L [facility] Urea nitrogen [Mass/Vol] 32 mg/dL High 7 - 20 mg/dL [place], [place] D-Dimer, Innovanceon 11-01- 020 D-Dimer, Innovance 0.87 mg/L High 0.00-0.50 [facility] Comment on above: Result Comment: Inno quach D-Dimer values of <0.50 mg/L FEU can be used in combination with a pre-test probability model (e.g. Well's) to exclude pulmonary embolism (PE) disease, as well as an aid in the diagnosis of deep vein thrombosis (DVT). Performed By: #### H EMOG, CMP3M, CRP2, LDH3, FIBGN, DDI2, APTT, FERR3 #### [employer] [address] [place] [address] D-Dimer, Quantitativeon 10-14 D-Dimer, Quant 0.87 mg/L High 0 - 0.5 mg/L [place] Comment on above: Innov[employer] D-Dimer va lues of <0.50 mg/L FEU can be used in combination with a pre-test probability model (e.g. Well's) to exclude pulmonary embolism (PE) disease, as well as an aid in the diagnosis of deep vein thrombosis (DVT). 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1965 Requested By: FARRUKH DIAZ Order Number: [id number] Reading MD: Usama Johnston Intervals [place] Rate: 83 P: 21 LA: 192 QRS: -16 QRSD: 104 T: 28 QT: 404 QTc: 475 Interpretive Statements SINUS RHYTHM MULTIPLE VENTRICULAR PREMATURE COMPLEXES Electronically Signed On 11-01-2020 23:01:06 EST by Usama [employer] [facility] Test Date: 2020-10-31 Pat Name: Reggie León Department: 09 Room: 468 Gender: M 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 [address] Ferritin [Mass/Vol] 1020 ng/mL High 18 - 464 ng/mL [facility] [place] Interpretation and review of laboratory results Abnormal [facility] Test Performed by [employer], [address], [place], [place] [address] [facility] Fibrinogenon 11-01-2020 Fibrinogen 420 mg/dL High 200-400 [facility] Comment on above: Performed By: #### H EMOG, CMP3M, CRP2, LDH3, FIBGN, DDI2, APTT, FERR3 #### [facility] [address] [place] [address] Fibrinogen 420 mg/dL High 200 - 400 mg/dL [place] LDHon 11-01-2020 LDH 665 U/L High 120-246 [facility] Comment on above: Performed By: #### H EMOG, CMP3M, CRP2, LDH3, FIBGN, DDI2, APTT, FERR3 #### [facility] [address] [place] [address] Lactate Dehydrogenaseon 10-14 LD 665 U/L High 120 - 246 U/L [place], [place] Otheron 11-01-2020 Interpretation and review of laboratory results Abnormal [place] Test Performed by [facility], [address] [place] [address] [place] Interpretation and review of laboratory results Abnormal [place] Test Performed by [facility], [address] [place] [address] [place] C-Reactive Proteinon 020 CRP [Mass/Vol] 19.2 mg/L High 0.0-6.0 [facility] Comment on above: Result Comment: . Performed By: #### H EMOG, CMP3M, CRP2, LDH3, FIBGN, DDI2, APTT, FERR3 #### [facility] [address] [place] [address] CRP [Mass/Vol] 19.2 mg/L High 0 - 6 mg/L [place], [place] Comment on above: . CBCon 10-31-2020 Erythrocyte distribution width (RBC) [Ratio] 14.0 % 11.5 - 14.5 % [place] Hematocrit (Bld) [Volume fraction] 35.7 % Low 40 - 52 % [place] Hemoglobin (Bld) [Mass/Vol] 12.0 g/dL Low 13 - 18 g/dL [place] Interpretation and review of laboratory results Abnormal [place] MCH (RBC) [Entitic mass] 29.0 pg 26 - 34 pg [place] MCHC (RBC) [Mass/Vol] 33.7 % 32 - 36 % [place], [place] MCV (RBC) [Entitic vol] 86.3 fL 80 - 98 fL [place], [place] Platelet mean volume (Bld) [Entitic vol] 7.5 fL 7.4 - 10.4 fL [place], [place] Platelets (Bld) [#/Vol] 294 10*3/uL 140 - 440 10*3/uL [place] RBC (Bld) [#/Vol] 4.14 10*6/uL Low 4.4 - 5.9 10*6/uL [place], [place] WBC (Bld) [#/Vol] 9.5 10*3/uL 3.6 - 10.7 10*3/uL [place] Test Performed by [facility], [address] [place], [place] [address] [place] Comp Panel with Mg Reflexon 10-31-2020 ALT [Catalytic activity/Vol] 79 U/L High 0-49 [facility] Comment on above: Result Comment: The ALT test is performed by an updated assay method. Please note that the reference intervals have been changed and are now sex specific. Performed By: #### H EMOG, CMP3M, CRP2, LDH3, FIBGN, DDI2, APTT, FERR3 #### [facility] [address] [place] [address] Calcium [Mass/Vol] 8.7 mg/dL Normal 8.4-10.4 [facility] Comment on above: Performed By: #### H EMOG, CMP3M, CRP2, LDH3, FIBGN, DDI2, APTT, FERR3 #### [facility] [address] [place] [address] Glucose [Mass/Vol] 139 mg/dL High 70-100 [facility] Comment on above: Performed By: #### H EMOG, CMP3M, CRP2, LDH3, FIBGN, DDI2, APTT, FERR3 #### [facility] [address] [place] [place] [address] Urea nitrogen [Mass/Vol] 30 mg/dL High 7-20 [facility] Comment on above: Performed By: #### H EMOG, CMP3M, CRP2, LDH3, FIBGN, DDI2, APTT, FERR3 #### [facility] [address] [place] [address] ALP [Catalytic activity/Vol] 69 U/L Normal 38-126 [facility] Comment on above: Performed By: #### H EMOG, CMP3M, CRP2, LDH3, FIBGN, DDI2, APTT, FERR3 #### [facility] [address] [place] [address] Anion gap [Moles/Vol] 7 Normal [facility] Comment on above: Performed By: #### H EMOG, CMP3M, CRP2, LDH3, FIBGN, DDI2, APTT, FERR3 #### [facility] [address] [place] [address] AST [Catalytic activity/Vol] 67 U/L High 15-46 [facility] Comment on above: Performed By: #### H EMOG, CMP3M, CRP2, LDH3, FIBGN, DDI2, APTT, FERR3 #### [facility] [address] [place] [address] Bilirubin [Mass/Vol] 0.4 mg/dL Normal 0.2-1.3 [facility] Comment on above: Performed By: #### H EMOG, CMP3M, CRP2, LDH3, FIBGN, DDI2, APTT, FERR3 #### [facility] [address] [place] [address] CO2 [Moles/Vol] 17 mmol/L Low 22-30 [facility] Comment on above: Performed By: #### H EMOG, CMP3M, CRP2, LDH3, FIBGN, DDI2, APTT, FERR3 #### [facility] [address] [place] [address] Creatinine [Mass/Vol] 1.84 mg/dL High 0.52-1.25 [facility] Comment on above: Performed By: #### H EMOG, CMP3M, CRP2, LDH3, FIBGN, DDI2, APTT, FERR3 #### [facility] [address] [place] [address] GFR/1.73 sq M predicted among blacks MDRD (S/P/Bld) [Vol rate/Area] 46.0 mL/min/{1.73_m2} Abnormal >60 [facility] Comment on above: Performed By: #### H EMOG, CMP3M, CRP2, LDH3, FIBGN, DDI2, APTT, FERR3 #### [facility] [address] [place] [address] GFR/1.73 sq M predicted among non-blacks MDRD (S/P/Bld) [Vol rate/Area] 39.7 mL/min/{1.73_m2} Abnormal >60 [facility] Comment on above: Result Comment: KDIG O [...] CRP2, LDH3, FIBGN, DDI2, APTT, FERR3 #### [facility] [address] [place] [address] Protein [Mass/Vol] 5.3 g/dL Low 6.3-8.2 [facility] Comment on above: Performed By: #### H EMOG, CMP3M, CRP2, LDH3, FIBGN, DDI2, APTT, FERR3 #### [facility] [address] [place] [address] Albumin [Mass/Vol] 2.8 g/dL Low 3.5-5.0 [facility] Comment on above: Performed By: #### H EMOG, CMP3M, CRP2, LDH3, FIBGN, DDI2, APTT, FERR3 #### [facility] [address] [place] [address] Chloride [Moles/Vol] 112 mmol/L High 98-107 [facility] Comment on above: Performed By: #### H EMOG, CMP3M, CRP2, LDH3, FIBGN, DDI2, APTT, FERR3 #### [facility] [address] [place] [address] Sodium [Moles/Vol] 136 mmol/L Normal 135-145 [facility] Comment on above: Performed By: #### H EMOG, CMP3M, CRP2, LDH3, FIBGN, DDI2, APTT, FERR3 #### [facility] [address] [place] [address] Potassium [Moles/Vol] 3.8 mmol/L Normal 3.5-5.1 [place] Comment on above: Performed By: #### H EMOG, CMP3M, CRP2, LDH3, FIBGN, DDI2, APTT, FERR3 #### [facility] [address] [place] [address] Comprehensive Metabolic Pane l w/ Reflex to MGon 10-31-2020 Albumin [Mass/Vol] 2.8 g/dL Low 3.5 - 5 g/dL [place] ALP [Catalytic activity/Vol] 69 U/L 38 - 126 U/L [place] ALT [Catalytic activity/Vol] 79 U/L High 0 - 49 U/L [place], [place] Comment on above: The ALT test is perf ormed by an updated assay method. Please note that the reference intervals have been changed and are now sex specific. Anion gap [Moles/Vol] 7 mmol/L [place], [place] AST [Catalytic activity/Vol] 67 U/L High 15 - 46 U/L [place], [place] Bilirubin Ql (U) 0.4 mg/dL 0.2 - 1.3 mg/dL [place], [place] Calcium [Mass/Vol] 8.7 mg/dL 8.4 - 10. 4 mg/dL [place], [place] Chloride [Moles/Vol] 112 mmol/L High 98 - 10 7 mmol/L [place] CO2 [Moles/Vol] 17 mmol/L Low 22 - 30 mmol/L [place] Creatinine [Mass/Vol] 1.84 mg/dL High 0.52 - 1.25 mg/dL [place], [place] EGFR IF NonAfrican Lithuanian 39.7 mL/min Abnormal >60 [place], [place] Comment on above: KDIGO guidelines pro [...] (S/P/Bld) [Vol rate/Area] 46.0 mL/min/{1.73_m2} Abnormal >60 [place], [place] Glucose [Mass/Vol] 139 mg/dL High 70 - 100 mg/dL [place], [place] Protein [Mass/Vol] 5.3 g/dL Low 6.3 - 8.2 g/dL [place], [place] Sodium [Moles/Vol] 136 mmol/L 135 - 145 mmol/L [place], [place] Urea nitrogen [Mass/Vol] 30 mg/dL High 7 - 20 mg/dL [place] D-Dimer, Innovanceon 12-18-2 020 D-Dimer, Innovance 0.96 mg/L High 0.00-0.50 [facility] Comment on above: Result Comment: Inno quach D-Dimer values of <0.50 mg/L FEU can be used in combination with a pre-test probability model (e.g. Well's) to exclude pulmonary embolism (PE) disease, as well as an aid in the diagnosis of deep vein thrombosis (DVT). Performed By: #### H EMOG, CMP3M, CRP2, LDH3, FIBGN, DDI2, APTT, FERR3 #### [facility] [address] [place] [address] D-Dimer, Quantitativeon 10-14 D-Dimer, Quant 0.96 mg/L High 0 - 0.5 mg/L [place] Comment on above: [employer] D-Dimer va lues of <0.50 mg/L FEU can be used in combination with a pre-test probability model (e.g. Well's) to exclude pulmonary embolism (PE) disease, as well as an aid in the diagnosis of deep vein thrombosis (DVT). Ferritinon 10-31-2020 Ferritin [Mass/Vol] 810 ng/mL High 18-464 [facility] Comment on above: Performed By: #### H EMOG, CMP3M, CRP2, LDH3, FIBGN, DDI2, APTT, FERR3 #### [facility] [address] [place] [address] Ferritin [Mass/Vol] 810 ng/mL High 18 - 464 ng/mL [place] Interpretation and review of laboratory results Abnormal [place] Test Performed by [facility], [address] [place], [place] [address] [place], [place] Fibrinogenon 10-31-2020 Fibrinogen 455 mg/dL High 200-400 [facility] Comment on above: Performed By: #### H EMOG, CMP3M, CRP2, LDH3, FIBGN, DDI2, APTT, FERR3 #### [facility] [address] [place] [place] [address] Fibrinogen 455 mg/dL High 200 - 400 mg/dL [place], [place] Hemogramon 10-31-2020 Erythrocyte distribution width (RBC) [Ratio] 14.0 % Normal 11.5-14.5 [facility] Comment on above: Performed By: #### H EMOG, CMP3M, CRP2, LDH3, FIBGN, DDI2, APTT, FERR3 #### [facility] [address] [place] [address] Hematocrit (Bld) [Volume fraction] 35.7 % Low 40.0-52.0 [facility] Comment on above: Performed By: #### H EMOG, CMP3M, CRP2, LDH3, FIBGN, DDI2, APTT, FERR3 #### [facility] [address] [place] [address] Hemoglobin (Bld) [Mass/Vol] 12.0 g/dL Low 13.0-18.0 [facility] Comment on above: Performed By: #### H EMOG, CMP3M, CRP2, LDH3, FIBGN, DDI2, APTT, FERR3 #### [facility] [address] [place] [address] MCH (RBC) [Entitic mass] 29.0 pg Normal 26.0-34.0 [facility] Comment on above: Performed By: #### H EMOG, CMP3M, CRP2, LDH3, FIBGN, DDI2, APTT, FERR3 #### [facility] [address] [place] [address] MCHC (RBC) [Mass/Vol] 33.7 % Normal 32.0-36.0 [facility] Comment on above: Performed By: #### H EMOG, CMP3M, CRP2, LDH3, FIBGN, DDI2, APTT, FERR3 #### [facility] [address] [place] [address] MCV (RBC) [Entitic vol] 86.3 fL Normal 80.0-98.0 [facility] Comment on above: Performed By: #### H EMOG, CMP3M, CRP2, LDH3, FIBGN, DDI2, APTT, FERR3 #### [facility] [address] [place] [address] Platelet mean volume (Bld) [Entitic vol] 7.5 fL Normal 7.4-10.4 [facility] Comment on above: Performed By: #### H EMOG, CMP3M, CRP2, LDH3, FIBGN, DDI2, APTT, FERR3 #### [facility] [address] [place] [address] Platelets (Bld) [#/Vol] 294 10*3/uL Normal 140-440 [facility] Comment on above: Performed By: #### H EMOG, CMP3M, CRP2, LDH3, FIBGN, DDI2, APTT, FERR3 #### [facility] [address] [place] [address] RBC (Bld) [#/Vol] 4.14 10*6/uL Low 4.40-5.90 [facility] Comment on above: Performed By: #### H EMOG, CMP3M, CRP2, LDH3, FIBGN, DDI2, APTT, FERR3 #### [facility] [address] [place] [address] WBC (Bld) [#/Vol] 9.5 10*3/uL Normal 3.6-10.7 [facility] Comment on above: Performed By: #### H EMOG, CMP3M, CRP2, LDH3, FIBGN, DDI2, APTT, FERR3 #### [facility] [address] [place] [address] LDHon 10-31-2020 LDH 572 U/L High 120-246 [facility] Comment on above: Performed By: #### H EMOG, CMP3M, CRP2, LDH3, FIBGN, DDI2, APTT, FERR3 #### [facility] [address] [place] [address] Lactate Dehydrogenaseon 10-14 LD 572 U/L High 120 - 246 U/L [facility] [place], [place] Otheron 10-31-2020 Interpretation and review of laboratory results Abnormal [facility] [place], [place] Test Performed by [facility], [facility] [address] [place], [place] [id number] [place] [address] [place], [place] Interpretation and review of laboratory results Abnormal [facility] [place], [place] Test Performed by [facility], [address] [place] [address] [place] APTTon 10-30-2020 aPTT Coag (Bld) [Time] 47.0 s High 20.0-30.5 [facility] Comment on above: Result Comment: NOTE : The therapeutic time for Heparin anticoagulation, based on Xa activity inhibition, is an APTT of 46-80 seconds. Performed By: #### H EMOG, CMP3M, CRP2, LDH3, FIBGN, DDI2, APTT, FERR3 #### [facility] [address] [place] [address] aPTT Coag (Bld) [Time] 47 s High 20 - 30.5 s [place], [place] Comment on above: NOTE: The therapeuti c time for Heparin anticoagulation, based on Xa activity inhibition, is an APTT of 46-80 seconds. C-Reactive Proteinon 020 CRP [Mass/Vol] 27.5 mg/L High 0.0-6.0 [facility] Comment on above: Result Comment: . Performed By: #### H EMOG, CMP3M, CRP2, LDH3, FIBGN, DDI2, APTT, FERR3 #### [facility] [address] [place] [address] CRP [Mass/Vol] 27.5 mg/L High 0 - 6 mg/L [place] Comment on above: . Comp Panel with Mg Reflexon 10-30-2020 ALT [Catalytic activity/Vol] 67 U/L High 0-49 [facility] Comment on above: Result Comment: The ALT test is performed by an updated assay method. Please note that the reference intervals have been changed and are now sex specific. Performed By: #### H EMOG, CMP3M, CRP2, LDH3, FIBGN, DDI2, APTT, FERR3 #### [facility] [address] [place] [address] Calcium [Mass/Vol] 8.6 mg/dL Normal 8.4-10.4 [facility] Comment on above: Performed By: #### H EMOG, CMP3M, CRP2, LDH3, FIBGN, DDI2, APTT, FERR3 #### [facility] [address] [place] [address] Glucose [Mass/Vol] 142 mg/dL High 70-100 [facility] Comment on above: Performed By: #### H EMOG, CMP3M, CRP2, LDH3, FIBGN, DDI2, APTT, FERR3 #### [facility] [address] [place] [address] Urea nitrogen [Mass/Vol] 30 mg/dL High 7-20 [facility] Comment on above: Performed By: #### H EMOG, CMP3M, CRP2, LDH3, FIBGN, DDI2, APTT, FERR3 #### [facility] [address] [place] [address] ALP [Catalytic activity/Vol] 75 U/L Normal 38-126 [facility] Comment on above: Performed By: #### H EMOG, CMP3M, CRP2, LDH3, FIBGN, DDI2, APTT, FERR3 #### [facility] [address] [place] [address] Anion gap [Moles/Vol] 8 Normal [facility] Comment on above: Performed By: #### H EMOG, CMP3M, CRP2, LDH3, FIBGN, DDI2, APTT, FERR3 #### [facility] [address] [place] [address] AST [Catalytic activity/Vol] 67 U/L High 15-46 [facility] Comment on above: Performed By: #### H EMOG, CMP3M, CRP2, LDH3, FIBGN, DDI2, APTT, FERR3 #### [facility] [address] [place] [address] Bilirubin [Mass/Vol] 0.3 mg/dL Normal 0.2-1.3 [facility] Comment on above: Performed By: #### H EMOG, CMP3M, CRP2, LDH3, FIBGN, DDI2, APTT, FERR3 #### [facility] [address] [place] [address] CO2 [Moles/Vol] 18 mmol/L Low 22-30 [facility] Comment on above: Performed By: #### H EMOG, CMP3M, CRP2, LDH3, FIBGN, DDI2, APTT, FERR3 #### [facility] [address] [place] [address] Creatinine [Mass/Vol] 2.01 mg/dL High 0.52-1.25 [facility] Comment on above: Performed By: #### H EMOG, CMP3M, CRP2, LDH3, FIBGN, DDI2, APTT, FERR3 #### [facility] [address] [place] [address] GFR/1.73 sq M predicted among blacks MDRD (S/P/Bld) [Vol rate/Area] 41.3 mL/min/{1.73_m2} Abnormal >60 [facility] Comment on above: Performed By: #### H EMOG, CMP3M, CRP2, LDH3, FIBGN, DDI2, APTT, FERR3 #### [facility] [address] [place] [address] GFR/1.73 sq M predicted among non-blacks MDRD (S/P/Bld) [Vol rate/Area] 35.6 mL/min/{1.73_m2} Abnormal >60 [facility] Comment on above: Result Comment: KDIG O [...] CRP2, LDH3, FIBGN, DDI2, APTT, FERR3 #### [facility] [address] [place] [address] Protein [Mass/Vol] 5.7 g/dL Low 6.3-8.2 [facility] Comment on above: Performed By: #### H EMOG, CMP3M, CRP2, LDH3, FIBGN, DDI2, APTT, FERR3 #### [facility] [address] [place] [address] Potassium [Moles/Vol] 4.0 mmol/L Normal 3.5-5.1 [facility] Comment on above: Performed By: #### H EMOG, CMP3M, CRP2, LDH3, FIBGN, DDI2, APTT, FERR3 #### [facility] [address] [place] [address] Albumin [Mass/Vol] 2.9 g/dL Low 3.5-5.0 [facility] Comment on above: Performed By: #### H EMOG, CMP3M, CRP2, LDH3, FIBGN, DDI2, APTT, FERR3 #### [facility] [address] [place] [address] Chloride [Moles/Vol] 114 mmol/L High 98-107 [facility] Comment on above: Performed By: #### H EMOG, CMP3M, CRP2, LDH3, FIBGN, DDI2, APTT, FERR3 #### [facility] [address] [place] [address] Sodium [Moles/Vol] 140 mmol/L Normal 135-145 [facility] Comment on above: Performed By: #### H EMOG, CMP3M, CRP2, LDH3, FIBGN, DDI2, APTT, FERR3 #### [facility] [address] [place] [address] Comprehensive Metabolic Pane l w/ Reflex to MGon 10-30-2020 Albumin [Mass/Vol] 2.9 g/dL Low 3.5 - 5 g/dL [place] ALP [Catalytic activity/Vol] 75 U/L 38 - 126 U/L [place] ALT [Catalytic activity/Vol] 67 U/L High 0 - 49 U/L [place] Comment on above: The ALT test is perf ormed by an updated assay method. Please note that the reference intervals have been changed and are now sex specific. Anion gap [Moles/Vol] 8 mmol/L [place] AST [Catalytic activity/Vol] 67 U/L High 15 - 46 U/L [place] Bilirubin Ql (U) 0.3 mg/dL 0.2 - 1.3 mg/dL [place] Calcium [Mass/Vol] 8.6 mg/dL 8.4 - 10. 4 mg/dL [place] Chloride [Moles/Vol] 114 mmol/L High 98 - 10 7 mmol/L [place] CO2 [Moles/Vol] 18 mmol/L Low 22 - 30 mmol/L [place] Creatinine [Mass/Vol] 2.01 mg/dL High 0.52 - 1.25 mg/dL [place] EGFR IF NonAfrican Lithuanian 35.6 mL/min Abnormal >60 [place] Comment on above: KDIGO guidelines pro [...] (S/P/Bld) [Vol rate/Area] 41.3 mL/min/{1.73_m2} Abnormal >60 [place] Glucose [Mass/Vol] 142 mg/dL High 70 - 100 mg/dL [place] Potassium [Moles/Vol] 4.0 mmol/L 3.5 - 5.1 mmol/L [place] Protein [Mass/Vol] 5.7 g/dL Low 6.3 - 8.2 g/dL [place] Sodium [Moles/Vol] 140 mmol/L 135 - 145 mmol/L [place] Urea nitrogen [Mass/Vol] 30 mg/dL High 7 - 20 mg/dL [place] D-Dimer, Innovanceon 020 D-Dimer, Innovance 0.89 mg/L High 0.00-0.50 [facility] Comment on above: Result Comment: Inno quach D-Dimer values of <0.50 mg/L FEU can be used in combination with a pre-test probability model (e.g. Well's) to exclude pulmonary embolism (PE) disease, as well as an aid in the diagnosis of deep vein thrombosis (DVT). Performed By: #### H EMOG, CMP3M, CRP2, LDH3, FIBGN, DDI2, APTT, FERR3 #### [facility] [address] [place] [address] D-Dimer, Quantitativeon 10-14 D-Dimer, Quant 0.89 mg/L High 0 - 0.5 mg/L [place] Comment on above: Innovance D-Dimer va lues of <0.50 mg/L FEU can be used in combination with a pre-test probability model (e.g. Well's) to exclude pulmonary embolism (PE) disease, as well as an aid in the diagnosis of deep vein thrombosis (DVT). Ferritinon 10-30-2020 Ferritin [Mass/Vol] 885 ng/mL High 18-464 [facility] Comment on above: Performed By: #### H EMOG, CMP3M, CRP2, LDH3, FIBGN, DDI2, APTT, FERR3 #### [facility] [address] [place] [address] Ferritin [Mass/Vol] 885 ng/mL High 18 - 464 ng/mL [place] Interpretation and review of laboratory results Abnormal [place] Test Performed by [facility], [address] [place] [address] [place] Fibrinogenon 10-30-2020 Fibrinogen 456 mg/dL High 200-400 [facility] Comment on above: Performed By: #### H EMOG, CMP3M, CRP2, LDH3, FIBGN, DDI2, APTT, FERR3 #### [facility] [address] [place] [address] Fibrinogen 456 mg/dL High 200 - 400 mg/dL [place] LDHon 10-30-2020 LDH 613 U/L High 120-246 [facility] Comment on above: Performed By: #### H EMOG, CMP3M, CRP2, LDH3, FIBGN, DDI2, APTT, FERR3 #### [facility] [address] [place] [address] Lactate Dehydrogenaseon 10-14 LD 613 U/L High 120 - 246 U/L [place] Otheron 10-30-2020 Interpretation and review of laboratory results Abnormal [place] Test Performed by [facility], [facility] [address] [place], [place] [id number] [place] [address] Interpretation and review of laboratory results Abnormal [place] Test Performed by [facility], [address] [place], [place] [address] [place] APTTon 10-29-2020 aPTT Coag (Bld) [Time] 35.1 s High 20.0-30.5 [facility] Comment on above: Result Comment: NOTE : The therapeutic time for Heparin anticoagulation, based on Xa activity inhibition, is an APTT of 46-80 seconds. Performed By: #### H EMOG, CMP3M, CRP2, LDH3, FIBGN, DDI2, APTT, FERR3 #### [facility] [address] [place] [address] aPTT Coag (Bld) [Time] 35.1 s High 20 - 30.5 s [place] Comment on above: NOTE: The therapeuti c time for Heparin anticoagulation, based on Xa activity inhibition, is an APTT of 46-80 seconds. C-Reactive Proteinon 020 CRP [Mass/Vol] 34.9 mg/L High 0.0-6.0 [facility] Comment on above: Result Comment: . Performed By: #### H EMOG, CMP3M, CRP2, LDH3, FIBGN, DDI2, APTT, FERR3 #### [facility] [address] [place] [address] CRP [Mass/Vol] 34.9 mg/L High 0 - 6 mg/L [place] Comment on above: . CBCon 10-29-2020 Erythrocyte distribution width (RBC) [Ratio] 14.2 % 11.5 - 14.5 % [place] Hematocrit (Bld) [Volume fraction] 37.3 % Low 40 - 52 % [place] Hemoglobin (Bld) [Mass/Vol] 12.6 g/dL Low 13 - 18 g/dL [place] Interpretation and review of laboratory results Abnormal [place] MCH (RBC) [Entitic mass] 29.2 pg 26 - 34 pg [place] MCHC (RBC) [Mass/Vol] 33.7 % 32 - 36 % [place] MCV (RBC) [Entitic vol] 86.7 fL 80 - 98 fL [place] Platelet mean volume (Bld) [Entitic vol] 7.6 fL 7.4 - 10.4 fL [place] Platelets (Bld) [#/Vol] 255 10*3/uL 140 - 440 10*3/uL [place] RBC (Bld) [#/Vol] 4.30 10*6/uL Low 4.4 - 5.9 10*6/uL [place] WBC (Bld) [#/Vol] 7.8 10*3/uL 3.6 - 10.7 10*3/uL [place] Test Performed by [facility], [address], [place], [place] [address] [place] CBC auto differentialon 10-14 Absolute Baso # 0.0 10*3/uL 0 - 0.2 10*3/uL [place] Absolute Neut # 3.5 10*3/uL 1.8 - 7 10*3/uL [place] Basophils/100 WBC (Bld) 0.3 % 0 - 2 % [place] Eosinophils (Bld) [#/Vol] 0.0 10*3/uL 0 - 0.5 10*3/uL [place] Eosinophils/100 WBC (Bld) 0.0 % Low 1 - 6 % [place] Erythrocyte distribution width (RBC) [Ratio] 13.8 % 11.5 - 14.5 % [place] Granulocytes/100 WBC (Bld) 79.4 % 40 - 80 % [place] Hematocrit (Bld) [Volume fraction] 36.7 % Low 40 - 52 % [place] Hemoglobin (Bld) [Mass/Vol] 12.2 g/dL Low 13 - 18 g/dL [place] Interpretation and review of laboratory results Abnormal [place] Lymphocytes (Bld) [#/Vol] 0.4 10*3/uL Low 1 - 4.3 10*3/uL [place] Lymphocytes/100 WBC (Bld) 8.8 % Low 20 - 40 % [place] MCH (RBC) [Entitic mass] 29.1 pg 26 - 34 pg [place] MCHC (RBC) [Mass/Vol] 33.1 % 32 - 36 % [place] MCV (RBC) [Entitic vol] 87.8 fL 80 - 98 fL [place] Monocytes (Bld) [#/Vol] 0.5 10*3/uL 0 - 0.8 10*3/uL [place] Monocytes/100 WBC (Bld) 11.5 % High 2 - 10 % [place] Platelet mean volume (Bld) [Entitic vol] 7.9 fL 7.4 - 10.4 fL [place] Platelets (Bld) [#/Vol] 231 10*3/uL 140 - 440 10*3/uL [place] RBC (Bld) [#/Vol] 4.19 10*6/uL Low 4.4 - 5.9 10*6/uL [place] WBC (Bld) [#/Vol] 4.4 10*3/uL 3.6 - 10.7 10*3/uL [place] Test Performed by [facility], [address] [place], [place], [place] [address] [place] COVID and Resp PCR Panelon 1 12-30-2019 COVID and Resp PCR Panel COVID and Resp PCR Panel --> Status: F NEGATIVE: No targets were detected by the Moku Upper Respiratory Pathogens PCR Panel. _ Expected Result: Not Detected The Moku Upper Respiratory Pathogens PCR Panel can detect [...] management decisions. This assay was developed by [employer] and distributed under an Emergency Use Authorization (EUA) granted by the FDA for the qualitative detection of SARS-CoV-2 nucleic acid. Provider and patient fact sheets can be found at https://www.fda.gov/m edia/217478/download and https://www.fda.gov/m edia/383710/download. Respiratory Pathogens PCR Panel. _ Expected Result: Not Detected The Moku Upper Respiratory Pathogens PCR Panel can detect [...] management decisions. This assay was developed by [employer] and distributed under an Emergency Use Authorization (EUA) granted by the FDA for the qualitative detection of SARS-CoV-2 nucleic acid. Provider and patient fact sheets can be found at https://www.[facility].gov/m edia/388141/download and https://www.fda.gov/m edia/836410/download. Normal [facility] Comment on above: Performed By: #### H EMOG, CMP3M, CRP2, LDH3, FIBGN, DDI2, APTT, FERR3 #### [facility] [address] [place] [address] CTA CHEST W WO CONTRASTon Patient Name: REGGIE LEÓN Computed Tomography ACCESSION EXAM DATE/TIME PROCEDURE ORDERING PROVIDER [id number] 10/29/2020 16:29 EST CTA Chest w/ + w/o MD EMILY, FARRUKH MCCORMICK Contrast CPT code 05012 Q9967 Reason For Exam (CTA Chest w/ + w/o Contrast) Hypoxia and elevated D-dimer, possible COVID+ and PE? Report Reasons for examination: Hypoxia, elevated d-dimer, Covid 19. CT scan of the chest were performed with bolus contrast and high resolution scans for CT pulmonary angiographic study, with images post-processed by myself on Neema workstation, with 3D - volume rendered CT [...] WILLIAM Transcribed Date and Time: 10/29/2020 4:51 [facility], [place] Michel, [place] Incoming Radiology Results From [facility] - 10/29/2020 4:51 PM EST Patient Name: REGGIE LEÓN Computed Tomography ACCESSION EXAM DATE/TIME PROCEDURE ORDERING PROVIDER [id number] 10/29/2020 16:29 EST CTA Chest w/ + w/o MD EMILY, FARRUKH MCCORMICK Contrast CPT code 15080 Q9967 Reason For Exam (CTA Chest w/ + w/o Contrast) Hypoxia and elevated D-dimer, possible COVID+ and PE? Report Reasons for examination: Hypoxia, elevated d-dimer, Covid 19. CT scan of the chest were performed with bolus contrast and high resolution scans for CT pulmonary angiographic study, with images post-processed by myself on Neema workstation, with 3D - volume rendered CT [...] WILLIAM Transcribed Date and Time: 10/29/2020 4:51 [facility], [place] CTA Chest w/ + w/o Contrasto n 10-29-2020 CTA Chest w/ + w/o Contrast Patient Name: REGGIE LEÓN Computed Tomography ACCESSION EXAM DATE/TIME PROCEDURE ORDERING PROVIDER [id number] 10/29/2020 16:29 EST CTA Chest w/ + w/o MD EMILY, FARRUKH MCCORMICK Contrast CPT code 64634 Q9967 Reason For Exam (CTA Chest w/ + w/o Contrast) Hypoxia and elevated D-dimer, possible COVID+ and PE? Report Reasons for examination: Hypoxia, elevated d-dimer, Covid 19. CT scan of the chest were performed with bolus contrast and high resolution scans for CT pulmonary angiographic study, with images post-processed by myself on Neema workstation, with 3D - volume rendered CT [...] Transcribed Date and Time: 10/29/2020 4:51 Normal [facility] Comp Panel with Mg Reflexon 10-29-2020 ALP [Catalytic activity/Vol] 71 U/L Normal 38-126 [facility] Comment on above: Performed By: #### H EMOG, CMP3M, CRP2, LDH3, FIBGN, DDI2, APTT, FERR3 #### [facility] [address] [place] [address] ALT [Catalytic activity/Vol] 67 U/L High 0-49 [facility] Comment on above: Result Comment: The ALT test is performed by an updated assay method. Please note that the reference intervals have been changed and are now sex specific. Performed By: #### H EMOG, CMP3M, CRP2, LDH3, FIBGN, DDI2, APTT, FERR3 #### [facility] [address] [place] [address] Anion gap [Moles/Vol] 7 Normal [facility] Comment on above: Performed By: #### H EMOG, CMP3M, CRP2, LDH3, FIBGN, DDI2, APTT, FERR3 #### [facility] [address] [place] [address] AST [Catalytic activity/Vol] 88 U/L High 15-46 [facility] Comment on above: Performed By: #### H EMOG, CMP3M, CRP2, LDH3, FIBGN, DDI2, APTT, FERR3 #### [facility] [address] [place] [address] Bilirubin [Mass/Vol] 0.6 mg/dL Normal 0.2-1.3 [facility] Comment on above: Performed By: #### H EMOG, CMP3M, CRP2, LDH3, FIBGN, DDI2, APTT, FERR3 #### [facility] [address] [place] [address] Calcium [Mass/Vol] 8.9 mg/dL Normal 8.4-10.4 [facility] Comment on above: Performed By: #### H EMOG, CMP3M, CRP2, LDH3, FIBGN, DDI2, APTT, FERR3 #### [facility] [address] [place] [address] CO2 [Moles/Vol] 18 mmol/L Low 22-30 [facility] Comment on above: Performed By: #### H EMOG, CMP3M, CRP2, LDH3, FIBGN, DDI2, APTT, FERR3 #### [facility] [address] [place] [address] Creatinine [Mass/Vol] 2.24 mg/dL High 0.52-1.25 [facility] Comment on above: Performed By: #### H EMOG, CMP3M, CRP2, LDH3, FIBGN, DDI2, APTT, FERR3 #### [facility] [address] [place] [address] GFR/1.73 sq M predicted among blacks MDRD (S/P/Bld) [Vol rate/Area] 36.2 mL/min/{1.73_m2} Abnormal >60 [facility] Comment on above: Performed By: #### H EMOG, CMP3M, CRP2, LDH3, FIBGN, DDI2, APTT, FERR3 #### [facility] [address] [place] [address] GFR/1.73 sq M predicted among non-blacks MDRD (S/P/Bld) [Vol rate/Area] 31.3 mL/min/{1.73_m2} Abnormal >60 [facility] Comment on above: Result Comment: KDIG O [...] CRP2, LDH3, FIBGN, DDI2, APTT, FERR3 #### [facility] [address] [place] [address] Glucose [Mass/Vol] 132 mg/dL High 70-100 [facility] Comment on above: Performed By: #### H EMOG, CMP3M, CRP2, LDH3, FIBGN, DDI2, APTT, FERR3 #### [facility] [address] [place] [address] Protein [Mass/Vol] 6.0 g/dL Low 6.3-8.2 [facility] Comment on above: Performed By: #### H EMOG, CMP3M, CRP2, LDH3, FIBGN, DDI2, APTT, FERR3 #### [facility] [address] [place] [address] Urea nitrogen [Mass/Vol] 33 mg/dL High 7-20 [facility] Comment on above: Performed By: #### H EMOG, CMP3M, CRP2, LDH3, FIBGN, DDI2, APTT, FERR3 #### [facility] [address] [place] [address] Potassium [Moles/Vol] 3.9 mmol/L Normal 3.5-5.1 [facility] Comment on above: Performed By: #### H EMOG, CMP3M, CRP2, LDH3, FIBGN, DDI2, APTT, FERR3 #### [facility] [address] [place] [address] Albumin [Mass/Vol] 3.2 g/dL Low 3.5-5.0 [facility] Comment on above: Performed By: #### H EMOG, CMP3M, CRP2, LDH3, FIBGN, DDI2, APTT, FERR3 #### [facility] [address] [place] [address] Chloride [Moles/Vol] 112 mmol/L High 98-107 [facility] Comment on above: Performed By: #### H EMOG, CMP3M, CRP2, LDH3, FIBGN, DDI2, APTT, FERR3 #### [facility] [address] [place] [address] Sodium [Moles/Vol] 137 mmol/L Normal 135-145 [facility] Comment on above: Performed By: #### H EMOG, CMP3M, CRP2, LDH3, FIBGN, DDI2, APTT, FERR3 #### [facility] [address] [place] [address] ALP [Catalytic activity/Vol] 81 U/L Normal 38-126 [facility] Comment on above: Performed By: #### H EMOG, CMP3M, CRP2, LDH3, FIBGN, DDI2, APTT, FERR3 #### [facility] [address] [place] [address] ALT [Catalytic activity/Vol] 67 U/L High 0-49 [facility] Comment on above: Result Comment: The ALT test is performed by an updated assay method. Please note that the reference intervals have been changed and are now sex specific. Performed By: #### H EMOG, CMP3M, CRP2, LDH3, FIBGN, DDI2, APTT, FERR3 #### [facility] [address] [place] [address] Anion gap [Moles/Vol] 9 Normal [facility] Comment on above: Performed By: #### H EMOG, CMP3M, CRP2, LDH3, FIBGN, DDI2, APTT, FERR3 #### [facility] [address] [place] [address] AST [Catalytic activity/Vol] 86 U/L High 15-46 [facility] Comment on above: Performed By: #### H EMOG, CMP3M, CRP2, LDH3, FIBGN, DDI2, APTT, FERR3 #### [facility] [address] [place] [address] Calcium [Mass/Vol] 8.5 mg/dL Normal 8.4-10.4 [facility] Comment on above: Performed By: #### H EMOG, CMP3M, CRP2, LDH3, FIBGN, DDI2, APTT, FERR3 #### [facility] [address] [place] [address] CO2 [Moles/Vol] 17 mmol/L Low 22-30 [facility] Comment on above: Performed By: #### H EMOG, CMP3M, CRP2, LDH3, FIBGN, DDI2, APTT, FERR3 #### [facility] [address] [place] [address] Glucose [Mass/Vol] 139 mg/dL High 70-100 [facility] Comment on above: Performed By: #### H EMOG, CMP3M, CRP2, LDH3, FIBGN, DDI2, APTT, FERR3 #### [facility] [address] [place] [address] Protein [Mass/Vol] 5.8 g/dL Low 6.3-8.2 [facility] Comment on above: Performed By: #### H EMOG, CMP3M, CRP2, LDH3, FIBGN, DDI2, APTT, FERR3 #### [facility] [address] [place] [address] Urea nitrogen [Mass/Vol] 31 mg/dL High 7-20 [facility] Comment on above: Performed By: #### H EMOG, CMP3M, CRP2, LDH3, FIBGN, DDI2, APTT, FERR3 #### [facility] [address] [place] [address] Bilirubin [Mass/Vol] 0.5 mg/dL Normal 0.2-1.3 [facility] Comment on above: Performed By: #### H EMOG, CMP3M, CRP2, LDH3, FIBGN, DDI2, APTT, FERR3 #### [facility] [address] [place] [address] Creatinine [Mass/Vol] 2.37 mg/dL High 0.52-1.25 [facility] Comment on above: Performed By: #### H EMOG, CMP3M, CRP2, LDH3, FIBGN, DDI2, APTT, FERR3 #### [facility] [address] [place] [address] GFR/1.73 sq M predicted among blacks MDRD (S/P/Bld) [Vol rate/Area] 33.9 mL/min/{1.73_m2} Abnormal >60 [facility] Comment on above: Performed By: #### H EMOG, CMP3M, CRP2, LDH3, FIBGN, DDI2, APTT, FERR3 #### [facility] [address] [place] [address] GFR/1.73 sq M predicted among non-blacks MDRD (S/P/Bld) [Vol rate/Area] 29.2 mL/min/{1.73_m2} Abnormal >60 [facility] Comment on above: Result Comment: KDIG O [...] CRP2, LDH3, FIBGN, DDI2, APTT, FERR3 #### [facility] [address] [place] [address] Potassium [Moles/Vol] 4.3 mmol/L Normal 3.5-5.1 [facility] Comment on above: Performed By: #### H EMOG, CMP3M, CRP2, LDH3, FIBGN, DDI2, APTT, FERR3 #### [facility] [address] [place] [address] Sodium [Moles/Vol] 136 mmol/L Normal 135-145 [facility] Comment on above: Performed By: #### H EMOG, CMP3M, CRP2, LDH3, FIBGN, DDI2, APTT, FERR3 #### [facility] [address] [place] [address] Albumin [Mass/Vol] 3.0 g/dL Low 3.5-5.0 [facility] Comment on above: Performed By: #### H EMOG, CMP3M, CRP2, LDH3, FIBGN, DDI2, APTT, FERR3 #### [facility] [address] [place] [address] Chloride [Moles/Vol] 110 mmol/L High 98-107 [facility] Comment on above: Performed By: #### H EMOG, CMP3M, CRP2, LDH3, FIBGN, DDI2, APTT, FERR3 #### [facility] [address] [place] [address] Comprehensive Metabolic Pane l w/ Reflex to MGon 10-29-2020 Albumin [Mass/Vol] 3.2 g/dL Low 3.5 - 5 g/dL [place] ALP [Catalytic activity/Vol] 71 U/L 38 - 126 U/L [place] ALT [Catalytic activity/Vol] 67 U/L High 0 - 49 U/L [place] Comment on above: The ALT test is perf ormed by an updated assay method. Please note that the reference intervals have been changed and are now sex specific. Anion gap [Moles/Vol] 7 mmol/L [place] AST [Catalytic activity/Vol] 88 U/L High 15 - 46 U/L [place] Bilirubin Ql (U) 0.6 mg/dL 0.2 - 1.3 mg/dL [place] Calcium [Mass/Vol] 8.9 mg/dL 8.4 - 10. 4 mg/dL [place] Chloride [Moles/Vol] 112 mmol/L High 98 - 10 7 mmol/L [place] CO2 [Moles/Vol] 18 mmol/L Low 22 - 30 mmol/L [place] Creatinine [Mass/Vol] 2.24 mg/dL High 0.52 - 1.25 mg/dL [place] EGFR IF NonAfrican [place]ian 31.3 mL/min Abnormal >60 [place] Comment on above: KDIGO guidelines pro [...] (S/P/Bld) [Vol rate/Area] 36.2 mL/min/{1.73_m2} Abnormal >60 [place] Glucose [Mass/Vol] 132 mg/dL High 70 - 100 mg/dL [place] Interpretation and review of laboratory results Abnormal [place] Potassium [Moles/Vol] 3.9 mmol/L 3.5 - 5.1 mmol/L [place] Protein [Mass/Vol] 6.0 g/dL Low 6.3 - 8.2 g/dL [place] Sodium [Moles/Vol] 137 mmol/L 135 - 145 mmol/L [place] Urea nitrogen [Mass/Vol] 33 mg/dL High 7 - 20 mg/dL [place] Test Performed by [facility], [address] [place] [address] [place] Albumin [Mass/Vol] 3.0 g/dL Low 3.5 - 5 g/dL [place] ALP [Catalytic activity/Vol] 81 U/L 38 - 126 U/L [place] ALT [Catalytic activity/Vol] 67 U/L High 0 - 49 U/L [place] Comment on above: The ALT test is perf ormed by an updated assay method. Please note that the reference intervals have been changed and are now sex specific. Anion gap [Moles/Vol] 9 mmol/L [place] AST [Catalytic activity/Vol] 86 U/L High 15 - 46 U/L [place] Bilirubin Ql (U) 0.5 mg/dL 0.2 - 1.3 mg/dL [place] Calcium [Mass/Vol] 8.5 mg/dL 8.4 - 10. 4 mg/dL [place] Chloride [Moles/Vol] 110 mmol/L High 98 - 10 7 mmol/L [place] CO2 [Moles/Vol] 17 mmol/L Low 22 - 30 mmol/L [place] Creatinine [Mass/Vol] 2.37 mg/dL High 0.52 - 1.25 mg/dL [place] EGFR IF NonAfrican [place]ian 29.2 mL/min Abnormal >60 [place] Comment on above: KDIGO guidelines pro [...] (S/P/Bld) [Vol rate/Area] 33.9 mL/min/{1.73_m2} Abnormal >60 [place] Glucose [Mass/Vol] 139 mg/dL High 70 - 100 mg/dL [place] Potassium [Moles/Vol] 4.3 mmol/L 3.5 - 5.1 mmol/L [place] Protein [Mass/Vol] 5.8 g/dL Low 6.3 - 8.2 g/dL [place] Sodium [Moles/Vol] 136 mmol/L 135 - 145 mmol/L [place] Urea nitrogen [Mass/Vol] 31 mg/dL High 7 - 20 mg/dL [place] [employer]-D[employer], [employer] 12-16-2 020 [employer]imer, [employer] 1.54 mg/L High 0.00-0.50 [facility] [employer] [facility] Comment on above: Result Comment: Inno quach D-Dimer values of <0.50 mg/L FEU can be used in combination with a pre-test probability model (e.g. Well's) to exclude pulmonary embolism (PE) disease, as well as an aid in the diagnosis of deep vein thrombosis (DVT). Performed By: #### H EMOG, CMP3M, CRP2, LDH3, FIBGN, DDI2, APTT, FERR3 #### [facility] [address] [place] [address] [employer]Dimer, [employer] 1.23 mg/L High 0.00-0.50 [facility] Comment on above: Result Comment: Inno quach D-Dimer values of <0.50 mg/L FEU can be used in combination with a pre-test probability model (e.g. Well's) to exclude pulmonary embolism (PE) disease, as well as an aid in the diagnosis of deep vein thrombosis (DVT). Performed By: #### H EMOG, CMP3M, CRP2, LDH3, FIBGN, DDI2, APTT, FERR3 #### [facility] [address] [place] [address] D-Dimer, Quantitativeon 12- D-Dimer, Quant 1.54 mg/L High 0 - 0.5 mg/L [facility], [place] Comment on above: [employer] D-Dimer va lues of <0.50 mg/L FEU can be used in combination with a pre-test probability model (e.g. Well's) to exclude pulmonary embolism (PE) disease, as well as an aid in the diagnosis of deep vein thrombosis (DVT). D-Dimer, Quant 1.23 mg/L High 0 - 0.5 mg/L [facility], [place] Comment on above: [employer] D-Dimer va lues of <0.50 mg/L FEU can be used in combination with a pre-test probability model (e.g. Well's) to exclude pulmonary embolism (PE) disease, as well as an aid in the diagnosis of deep vein thrombosis (DVT). 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1965 Requested By: ANDREW SILVER Order Number: [id number] Reading MD: Usama Johnston Intervals [place]ess Rate: 85 P: 15 LA: 184 QRS: -12 QRSD: 104 T: 73 QT: 408 QTc: 486 Interpretive Statements SINUS RHYTHM Electronically Signed On 10-29-2020 9:40:09 EST [facility] Test Date: 2020-10-28 Pat Name: Reggie León Department: 2AED Room: 468 Gender: M 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1965 Requested By: ANDREW SILVER Order Number: [id number] Reading MD: Usama Johnston Intervals [place] Rate: 85 P: 15 LA: 184 QRS: -12 QRSD: 104 T: 73 QT: 408 QTc: 486 Interpretive Statements SINUS RHYTHM Electronically Signed On 10-29-2020 9:40:09 EST by [facility] [place] Ferritinon 10-29-2020 Ferritin [Mass/Vol] 714 ng/mL High 18-464 [facility] Comment on above: Performed By: #### H EMOG, CMP3M, CRP2, LDH3, FIBGN, DDI2, APTT, FERR3 #### [facility] [address] [place] [address] Ferritin [Mass/Vol] 714 ng/mL High 18 - 464 ng/mL [place], [place] Interpretation and review of laboratory results Abnormal [place], [place] Test Performed by [facility], [address], [place], [place] [address] [place] Fibrinogenon 10-29-2020 Fibrinogen 534 mg/dL High 200-400 [facility] Comment on above: Performed By: #### H EMOG, CMP3M, CRP2, LDH3, FIBGN, DDI2, APTT, FERR3 #### [facility] [address] [place] [address] Fibrinogen 534 mg/dL High 200 - 400 mg/dL [place], [place] Fibrinogen 587 mg/dL High 200-400 [facility] Comment on above: Performed By: #### H EMOG, CMP3M, CRP2, LDH3, FIBGN, DDI2, APTT, FERR3 #### [facility] [address] [place] [address] Fibrinogen 587 mg/dL High 200 - 400 mg/dL [place] Hemogramon 10-29-2020 Erythrocyte distribution width (RBC) [Ratio] 14.2 % Normal 11.5-14.5 [facility] Comment on above: Performed By: #### H EMOG, CMP3M, CRP2, LDH3, FIBGN, DDI2, APTT, FERR3 #### [facility] [address] [place] [address] Hematocrit (Bld) [Volume fraction] 37.3 % Low 40.0-52.0 [facility] Comment on above: Performed By: #### H EMOG, CMP3M, CRP2, LDH3, FIBGN, DDI2, APTT, FERR3 #### [facility] [address] [place] [address] Hemoglobin (Bld) [Mass/Vol] 12.6 g/dL Low 13.0-18.0 [facility] Comment on above: Performed By: #### H EMOG, CMP3M, CRP2, LDH3, FIBGN, DDI2, APTT, FERR3 #### [facility] [address] [place] [address] MCH (RBC) [Entitic mass] 29.2 pg Normal 26.0-34.0 [facility] Comment on above: Performed By: #### H EMOG, CMP3M, CRP2, LDH3, FIBGN, DDI2, APTT, FERR3 #### [facility] [address] [place] [address] MCHC (RBC) [Mass/Vol] 33.7 % Normal 32.0-36.0 [facility] Comment on above: Performed By: #### H EMOG, CMP3M, CRP2, LDH3, FIBGN, DDI2, APTT, FERR3 #### [facility] [address] [place] [address] MCV (RBC) [Entitic vol] 86.7 fL Normal 80.0-98.0 [facility] Comment on above: Performed By: #### H EMOG, CMP3M, CRP2, LDH3, FIBGN, DDI2, APTT, FERR3 #### [facility] [address] [place] [address] Platelet mean volume (Bld) [Entitic vol] 7.6 fL Normal 7.4-10.4 [facility] Comment on above: Performed By: #### H EMOG, CMP3M, CRP2, LDH3, FIBGN, DDI2, APTT, FERR3 #### [facility] [address] [place] [address] Platelets (Bld) [#/Vol] 255 10*3/uL Normal 140-440 [facility] Comment on above: Performed By: #### H EMOG, CMP3M, CRP2, LDH3, FIBGN, DDI2, APTT, FERR3 #### [facility] [address] [place] [address] RBC (Bld) [#/Vol] 4.30 10*6/uL Low 4.40-5.90 [facility] Comment on above: Performed By: #### H EMOG, CMP3M, CRP2, LDH3, FIBGN, DDI2, APTT, FERR3 #### [facility] [address] [place] [address] WBC (Bld) [#/Vol] 7.8 10*3/uL Normal 3.6-10.7 [facility] Comment on above: Performed By: #### H EMOG, CMP3M, CRP2, LDH3, FIBGN, DDI2, APTT, FERR3 #### [facility] [address] [place] [address] Hemogram w/ Autodiffon 10-29 Abs Baso Cnt 0.0 10*3/uL Normal 0.0-0.2 [facility] Comment on above: Performed By: #### H EMOG, CMP3M, CRP2, LDH3, FIBGN, DDI2, APTT, FERR3 #### [facility] [address] [place] [address] Abs Neutrophile Cnt 3.5 10*3/uL Normal 1.8-7.0 [facility] Comment on above: Performed By: #### H EMOG, CMP3M, CRP2, LDH3, FIBGN, DDI2, APTT, FERR3 #### [facility] [address] [place] [address] Basophils/100 WBC (Bld) 0.3 % Normal 0.0-2.0 [facility] Comment on above: Performed By: #### H EMOG, CMP3M, CRP2, LDH3, FIBGN, DDI2, APTT, FERR3 #### [facility] [address] [place] [address] Eosinophils (Bld) [#/Vol] 0.0 10*3/uL Normal 0.0-0.5 [facility] Comment on above: Performed By: #### H EMOG, CMP3M, CRP2, LDH3, FIBGN, DDI2, APTT, FERR3 #### [place] [address] [place] [address] Eosinophils/100 WBC (Bld) 0.0 % Low 1.0-6.0 [facility] Comment on above: Performed By: #### H EMOG, CMP3M, CRP2, LDH3, FIBGN, DDI2, APTT, FERR3 #### [facility] [address] [place] [address] Erythrocyte distribution width (RBC) [Ratio] 13.8 % Normal 11.5-14.5 [facility] Comment on above: Performed By: #### H EMOG, CMP3M, CRP2, LDH3, FIBGN, DDI2, APTT, FERR3 #### [facility] [address] [place] [address] Granulocytes/100 WBC (Bld) 79.4 % Normal 40.0-80.0 [facility] Comment on above: Performed By: #### H EMOG, CMP3M, CRP2, LDH3, FIBGN, DDI2, APTT, FERR3 #### [facility] [address] [place] [address] Hematocrit (Bld) [Volume fraction] 36.7 % Low 40.0-52.0 [facility] Comment on above: Performed By: #### H EMOG, CMP3M, CRP2, LDH3, FIBGN, DDI2, APTT, FERR3 #### [facility] [address] [place] [address] Hemoglobin (Bld) [Mass/Vol] 12.2 g/dL Low 13.0-18.0 [facility] Comment on above: Performed By: #### H EMOG, CMP3M, CRP2, LDH3, FIBGN, DDI2, APTT, FERR3 #### [facility] [address] [place] [address] Lymphocytes (Bld) [#/Vol] 0.4 10*3/uL Low 1.0-4.3 [facility] Comment on above: Performed By: #### H EMOG, CMP3M, CRP2, LDH3, FIBGN, DDI2, APTT, FERR3 #### [facility] [address] [place] [address] Lymphocytes/100 WBC (Bld) 8.8 % Low 20.0-40.0 [facility] Comment on above: Performed By: #### H EMOG, CMP3M, CRP2, LDH3, FIBGN, DDI2, APTT, FERR3 #### [facility] [address] [place] [address] MCH (RBC) [Entitic mass] 29.1 pg Normal 26.0-34.0 [facility] Comment on above: Performed By: #### H EMOG, CMP3M, CRP2, LDH3, FIBGN, DDI2, APTT, FERR3 #### [facility] [address] [place] [address] MCHC (RBC) [Mass/Vol] 33.1 % Normal 32.0-36.0 [facility] Comment on above: Performed By: #### H EMOG, CMP3M, CRP2, LDH3, FIBGN, DDI2, APTT, FERR3 #### [facility] [address] [place] [address] MCV (RBC) [Entitic vol] 87.8 fL Normal 80.0-98.0 [facility] Comment on above: Performed By: #### H EMOG, CMP3M, CRP2, LDH3, FIBGN, DDI2, APTT, FERR3 #### [facility] [address] [place] [address] Monocytes (Bld) [#/Vol] 0.5 10*3/uL Normal 0.0-0.8 [facility] Comment on above: Performed By: #### H EMOG, CMP3M, CRP2, LDH3, FIBGN, DDI2, APTT, FERR3 #### [facility] [address] [place] [address] Monocytes/100 WBC (Bld) 11.5 % High 2.0-10.0 [facility] Comment on above: Performed By: #### H EMOG, CMP3M, CRP2, LDH3, FIBGN, DDI2, APTT, FERR3 #### [facility] [address] [place] [address] Platelet mean volume (Bld) [Entitic vol] 7.9 fL Normal 7.4-10.4 [facility] Comment on above: Performed By: #### H EMOG, CMP3M, CRP2, LDH3, FIBGN, DDI2, APTT, FERR3 #### [facility] [address] [place] [address] Platelets (Bld) [#/Vol] 231 10*3/uL Normal 140-440 [facility] Comment on above: Performed By: #### H EMOG, CMP3M, CRP2, LDH3, FIBGN, DDI2, APTT, FERR3 #### [facility] [address] [place] [address] RBC (Bld) [#/Vol] 4.19 10*6/uL Low 4.40-5.90 [facility] Comment on above: Performed By: #### H EMOG, CMP3M, CRP2, LDH3, FIBGN, DDI2, APTT, FERR3 #### [facility] [address] [place] [address] WBC (Bld) [#/Vol] 4.4 10*3/uL Normal 3.6-10.7 [facility] Comment on above: Performed By: #### H EMOG, CMP3M, CRP2, LDH3, FIBGN, DDI2, APTT, FERR3 #### [facility] [address] [place] [address] LDHon 10-29-2020 LDH 676 U/L High 120-246 [facility] Comment on above: Performed By: #### H EMOG, CMP3M, CRP2, LDH3, FIBGN, DDI2, APTT, FERR3 #### [facility] [address] [place] [address] Lactate Dehydrogenaseon 10-14 LD 676 U/L High 120 - 246 U/L [place] Lithiumon 10-29-2020 [place] [Moles/Vol] 0.7 mmol/L Normal 0.6-1.2 [facility] Comment on above: Performed By: #### H EMOG, CMP3M, CRP2, LDH3, FIBGN, DDI2, APTT, FERR3 #### [facility] [address] [place] [address] [place] Levelon 10-29-2020 [place] Lvl 0.7 mmol/L 0.6 - 1.2 mmol/L [place], [place] Otheron 10-29-2020 Interpretation and review of laboratory results Abnormal [place], [place] Test Performed by [facility], [facility] [address] [place], [place] [address] [place] [address] Interpretation and review of laboratory results Abnormal [place] Test Performed by [facility], [address] [place], [place] [address] [place] [address] Interpretation and review of laboratory results Abnormal [place] Test Performed by [facility], [facility] [address] [place], [place] [address] [place] [address] Procalcitoninon 10-29-2020 Procalcitonin 0.31 ng/mL Abnormal <0.10 [facility] Comment on above: Performed By: #### H EMOG, CMP3M, CRP2, LDH3, FIBGN, DDI2, APTT, FERR3 #### [facility] [address] [place] [address] Interpretation and review of laboratory results Abnormal [place], [place] Procalcitonin 0.31 ng/mL Abnormal <0.10 [place] Sodium [Moles/Vol] See Below [place], [place] Comment on above: PCT <0.50 = Low risk of severe sepsis and/or septic shock. PCT >2.00 = High risk of severe sepsis and/or septic shock. Test Performed by [facility], [address] [place] [id number] [place], [place] Vit D 25-OH, Totalon 020 Vit D 25-OH, Total 69 ng/mL Normal 30-100 [facility] Comment on above: Result Comment: Ther apy is based on measurement of Total 25-OHD with the following classification levels: Less than 20 ng/mL: Indicative of Vit D deficiency 20-30 ng/mL: Suggests Vit D insufficiency Optimal: Greater than or equal to 30 ng/mL Test performed by [employer], measuring Total Vitamin D, not individual fractions. Performed By: #### H EMOG, CMP3M, CRP2, LDH3, FIBGN, DDI2, APTT, FERR3 #### [facility] [address] [place] [address] Vitamin D 25 Hydroxyon 10-29 Vit D, 25-Hydroxy 69 ng/mL 30 - 100 ng/mL [place], [place] Comment on above: Therapy is based on measurement of Total 25-OHD with the following classification levels: Less than 20 ng/mL: Indicative of Vit D deficiency 20-30 ng/mL: Suggests Vit D insufficiency Optimal: Greater than or equal to 30 ng/mL Test performed by [employer], measuring Total Vitamin D, not individual fractions. Test Performed by [employer], [address], [place], [place] [address] [place], [place] Arterial Blood Gas Respirato sarah 10-28-2020 Base Excess -5.8 mmol/L Low -3.0-3.0 [facility] Comment on above: Performed By: #### A BGE #### [facility] [address] [place] [address] CO2 [Moles/Vol] 19.3 mmol/L Low 23.0-27.0 [facility] Comment on above: Performed By: #### A BGE #### [facility] [address] [place] [address] FIO2 21 Normal [facility] Comment on above: Result Comment: Perf ormed by CLIA ID: [id number] [place], [place] Performed By: #### A BGE #### [facility] [address] [place] [address] HCO3 (Bld) [Moles/Vol] 18.3 mmol/L Low 21.0-25.0 [facility] Comment on above: Performed By: #### A BGE #### [facility] [address] [place] [address] Oxygen (Bld) [Partial pressure] 69.8 mm[Hg] Low 80.0-100.0 [facility] Comment on above: Performed By: #### A BGE #### [facility] [address] [place] [address] Oxygen saturation in Blood 93.6 % Low 95.0-100. 0 [facility] Comment on above: Performed By: #### A BGE #### [facility] [address] [place] [address] pCO2 31.2 mm[Hg] Low 35.0-45.0 [facility] Comment on above: Performed By: #### A BGE #### [facility] [address] [place] [address] pH (Bld) 7.376 Normal 7.350-7.450 [facility] Comment on above: Performed By: #### A BGE #### [facility] [address] [place] [address] Brain Natriuretic Peptideon 10-28-2020 Natriuretic peptide B (Bld) [Mass/Vol] 47 pg/mL 0 - 125 pg/mL [facility], [place] CR Chest Portableon 10-28-20 20 CR Chest Portable Patient Name: REGGIE LEÓN Diagnostic Radiology ACCESSION EXAM DATE/TIME PROCEDURE ORDERING PROVIDER [id number] 10/28/2020 15:05 EST CR Chest Portable BALAJI SILVER DANIEL M CPT code 02897 Reason For Exam (CR Chest Portable) dyspnea [...] Transcribed Date and Time: 10/28/2020 3:21 Normal [facility] Comp Metabolic Panelon 10-28 ALP [Catalytic activity/Vol] 82 U/L Normal 38-126 [facility] Comment on above: Performed By: #### H EMOG, CMP3M, CRP2, LDH3, FIBGN, DDI2, APTT, FERR3 #### [facility] [address] [place] [address] ALT [Catalytic activity/Vol] 60 U/L High 0-49 [facility] Comment on above: Result Comment: The ALT test is performed by an updated assay method. Please note that the reference intervals have been changed and are now sex specific. Performed By: #### H EMOG, CMP3M, CRP2, LDH3, FIBGN, DDI2, APTT, FERR3 #### [facility] [address] [place] [address] Calcium [Mass/Vol] 8.6 mg/dL Normal 8.4-10.4 [facility] Comment on above: Performed By: #### H EMOG, CMP3M, CRP2, LDH3, FIBGN, DDI2, APTT, FERR3 #### [facility] [address] [place] [address] Glucose [Mass/Vol] 122 mg/dL High 70-100 [facility] Comment on above: Performed By: #### H EMOG, CMP3M, CRP2, LDH3, FIBGN, DDI2, APTT, FERR3 #### [facility] [address] [place] [address] Protein [Mass/Vol] 6.2 g/dL Low 6.3-8.2 [facility] Comment on above: Performed By: #### H EMOG, CMP3M, CRP2, LDH3, FIBGN, DDI2, APTT, FERR3 #### [facility] [address] [place] [address] Urea nitrogen [Mass/Vol] 35 mg/dL High 7-20 [facility] Comment on above: Performed By: #### H EMOG, CMP3M, CRP2, LDH3, FIBGN, DDI2, APTT, FERR3 #### [facility] [address] [place] [address] Anion gap [Moles/Vol] 9 Normal [facility] Comment on above: Performed By: #### H EMOG, CMP3M, CRP2, LDH3, FIBGN, DDI2, APTT, FERR3 #### [facility] [address] [place] [address] AST [Catalytic activity/Vol] 87 U/L High 15-46 [facility] Comment on above: Performed By: #### H EMOG, CMP3M, CRP2, LDH3, FIBGN, DDI2, APTT, FERR3 #### [facility] [address] [place] [address] Bilirubin [Mass/Vol] 0.6 mg/dL Normal 0.2-1.3 [facility] Comment on above: Performed By: #### H EMOG, CMP3M, CRP2, LDH3, FIBGN, DDI2, APTT, FERR3 #### [facility] [address] [place] [address] CO2 [Moles/Vol] 22 mmol/L Normal 22-30 [facility] Comment on above: Performed By: #### H EMOG, CMP3M, CRP2, LDH3, FIBGN, DDI2, APTT, FERR3 #### [facility] [address] [place] [address] Creatinine [Mass/Vol] 2.96 mg/dL High 0.52-1.25 [facility] Comment on above: Performed By: #### H EMOG, CMP3M, CRP2, LDH3, FIBGN, DDI2, APTT, FERR3 #### [facility] [address] [place] [address] GFR/1.73 sq M predicted among blacks MDRD (S/P/Bld) [Vol rate/Area] 25.9 mL/min/{1.73_m2} Abnormal >60 [facility] Comment on above: Performed By: #### H EMOG, CMP3M, CRP2, LDH3, FIBGN, DDI2, APTT, FERR3 #### [facility] [address] [place] [address] GFR/1.73 sq M predicted among non-blacks MDRD (S/P/Bld) [Vol rate/Area] 22.3 mL/min/{1.73_m2} Abnormal >60 [facility] Comment on above: Result Comment: KDIG O [...] CRP2, LDH3, FIBGN, DDI2, APTT, FERR3 #### [facility] [address] [place] [address] Chloride [Moles/Vol] 101 mmol/L Normal 98-107 [facility] Comment on above: Performed By: #### H EMOG, CMP3M, CRP2, LDH3, FIBGN, DDI2, APTT, FERR3 #### [facility] [address] [place] [address] Potassium [Moles/Vol] 3.1 mmol/L Low 3.5-5.1 [facility] Comment on above: Performed By: #### H EMOG, CMP3M, CRP2, LDH3, FIBGN, DDI2, APTT, FERR3 #### [facility] [address] [place] [address] Sodium [Moles/Vol] 133 mmol/L Low 135-145 [facility] Comment on above: Performed By: #### H EMOG, CMP3M, CRP2, LDH3, FIBGN, DDI2, APTT, FERR3 #### [facility] [address] [place] [address] Albumin [Mass/Vol] 3.3 g/dL Low 3.5-5.0 [facility] Comment on above: Performed By: #### H EMOG, CMP3M, CRP2, LDH3, FIBGN, DDI2, APTT, FERR3 #### [facility] [address] [place] [address] Complete Urinalysison 2019 Amorphous Crystal Few Abnormal Negative [facility] Comment on above: Result Comment: . Performed By: #### C UA2 #### [facility] [address] [place] [address] Appearance (U) Clear Normal Clear [facility] Comment on above: Result Comment: . Performed By: #### C UA2 #### [facility] [address] [place] [address] Bacteria LM.HPF (Urine sed) [#/Area] Few Abnormal Negative [facility] Comment on above: Result Comment: . Performed By: #### C UA2 #### [facility] [address] [place] [address] Bilirubin,Urine Negative Normal Negative [facility] Comment on above: Result Comment: . Performed By: #### C UA2 #### [facility] [address] [place] [address] Cast, Granular 0 - 2 Abnormal Negative [facility] Comment on above: Result Comment: . Performed By: #### C UA2 #### [facility] [address] [place] [address] Cast, Hyaline 3 - 5 Abnormal Negative [facility] Comment on above: Result Comment: . Performed By: #### C UA2 #### [facility] [address] [place] [address] Color (U) Yellow Normal Lt. Yellow [facility] Comment on above: Result Comment: . Performed By: #### C UA2 #### [facility] [address] [place] [address] Glucose Ql (U) Normal Normal Normal (<70) [facility] Comment on above: Result Comment: . Performed By: #### C UA2 #### [facility] [address] [place] [address] Ketone,Urine Negative Normal Negative [facility] Comment on above: Result Comment: . Performed By: #### C UA2 #### [facility] [address] [place] [address] Leukocytes,Urine Negative Normal Negative [facility] Comment on above: Result Comment: . Performed By: #### C UA2 #### [facility] [address] [place] [address] Mucous Threads Few Normal Negative [facility] Comment on above: Result Comment: . Performed By: #### C UA2 #### [facility] [address] [place] [address] Nitrites,Urine Negative Normal Negative [facility] Comment on above: Result Comment: . Performed By: #### C UA2 #### [facility] [address] [place] [address] Non-Squamous Epithelial < 1 Abnormal Negative [facility] Comment on above: Result Comment: . Performed By: #### C UA2 #### [facility] [address] [place] [address] Occult Blood,Urine Negative Normal Negative [facility] Comment on above: Result Comment: . Performed By: #### C UA2 #### [facility] [address] [place] [address] pH (U) 5.5 Normal 5.0-8.0 [facility] Comment on above: Result Comment: . Performed By: #### C UA2 #### [facility] [address] [place] [address] Protein (U) [Mass/Vol] 20 mg/dL Abnormal Negative [facility] Comment on above: Result Comment: . Performed By: #### C UA2 #### [facility] [address] [place] [address] RBC LM.HPF (Urine sed) [#/Area] 0 - 2 Normal 0-2 [facility] Comment on above: Result Comment: . Performed By: #### C UA2 #### [facility] [address] [place] [address] Specific [place],Urine 1.015 Normal 1.005 - 1.030 [facility] Comment on above: Result Comment: . Performed By: #### C UA2 #### [facility] [address] [place] [address] Squamous Epithelial 0 - 2 Normal 3-5 [facility] Comment on above: Result Comment: . Performed By: #### C UA2 #### [facility] [address] [place] [address] Urobilinogen,Urine Normal Normal Normal (0-1) [facility] Comment on above: Result Comment: . Performed By: #### C UA2 #### [facility] [address] [place] [address] WBC LM.HPF (Urine sed) [#/Area] 0 - 2 Normal 0-5 [facility] Comment on above: Result Comment: . Performed By: #### C UA2 #### [facility] [address] [place] [address] Comprehensive Metabolic Pane rahul 10-28-2020 Albumin [Mass/Vol] 3.3 g/dL Low 3.5 - 5 g/dL [facility] [place], [place] ALP [Catalytic activity/Vol] 82 U/L 38 - 126 U/L [place] ALT [Catalytic activity/Vol] 60 U/L High 0 - 49 U/L [place] Comment on above: The ALT test is perf ormed by an updated assay method. Please note that the reference intervals have been changed and are now sex specific. Anion gap [Moles/Vol] 9 mmol/L [place], [place] AST [Catalytic activity/Vol] 87 U/L High 15 - 46 U/L [place] Bilirubin Ql (U) 0.6 mg/dL 0.2 - 1.3 mg/dL [place] Calcium [Mass/Vol] 8.6 mg/dL 8.4 - 10. 4 mg/dL [place] Chloride [Moles/Vol] 101 mmol/L 98 - 10 7 mmol/L [place] CO2 [Moles/Vol] 22 mmol/L 22 - 30 mmol/L [place] Creatinine [Mass/Vol] 2.96 mg/dL High 0.52 - 1.25 mg/dL [place] EGFR IF NonAfrican Lithuanian 22.3 mL/min Abnormal >60 [place] Comment on above: KDIGO guidelines pro [...] (S/P/Bld) [Vol rate/Area] 25.9 mL/min/{1.73_m2} Abnormal >60 [place] Glucose [Mass/Vol] 122 mg/dL High 70 - 100 mg/dL [place] Interpretation and review of laboratory results Abnormal [place] Potassium [Moles/Vol] 3.1 mmol/L Low 3.5 - 5.1 mmol/L [place] Protein [Mass/Vol] 6.2 g/dL Low 6.3 - 8.2 g/dL [place] Sodium [Moles/Vol] 133 mmol/L Low 135 - 145 mmol/L [place] Urea nitrogen [Mass/Vol] 35 mg/dL High 7 - 20 mg/dL [place] ED Provider Noteon 0 ED Provider Note Emergency Department [facility] Patient: Reggie León : 1965 Date of Evaluation: 10/28/2020 ED Supervising Physician: Otf Long, DO I independently examined and evaluated Reggie León. In brief, Reggie León is a 55 y.o. male that presents to the emergency department with increased shortness of breath from his assisted. Patient has a known COVID-19 infection. Patient [...] and cough. CELINA spoke with the patient's assisted who states that he was on 4 [...] EKG: Sinus rhythm rate 85, QTC 486, LA interval 184, Q wave in lead 3, [...] Solutions Otf Long DO 10/28/20 1823 Normal [facility] ED [facility]Y dEPARTMENT eNCOUnter Pt Name: Reggie León Birthdate 1965 Date of evaluation: 10/28/2020 Provider: Andrew Silevr APRN - BALAJI This patient was seen [...] file Gets together: Not on file Attends lutheran service: Not on file Active member of [...] History Narrative ? Not on file SCREENINGS @FLOW([id number])@ PHYSICAL EXAM (5+ for level 4, 8+ [...] Department physician in the absence of a physical education professor. Please see their accompanying note for interpretation. RADIOLOGY (Per EmergencyPhysician): Interpretation per the Radiologist below, if available at the time of this note: Xr Chest Portable Result Date: 10/28/2020 Patient Name: REGGIE LEÓN Diagnostic Radiology ACCESSION EXAM DATE/TIME PROCEDURE ORDERING PROVIDER [id number] 10/28/2020 15:05 EST CR Chest Portable BALAJI SILVER DANIEL M CPT code 94570 Reason For Exam (CR Chest Portable) dyspnea [...] within normal limits Narrative: Test Performed by [facility], [address] [place] [address] CBC WITH AUTO DIFFERENTIAL - Abnormal; Notable for the following components: Hemoglobin 12.9 (*) Hematocrit 38.1 (*) Lymphocyte % 13.6 (*) Monocytes 17.8 (*) Eosinophils 0.8 (*) Absolute Lymph # 0.6 (*) All other components within normal limits Narrative: Test Performed by [facility], [address] [place] [address] POCT ARTERIAL - Abnormal; Notable for the following components: pCO2, Arterial 31.2 (*) pO2, Arterial 69.8 (*) HCO3, Arterial 18.3 (*) Base Excess, Arterial -5.8 (*) O2 Sat, Arterial 93.6 (*) TCO2, Arterial 19.3 (*) All other components within normal limits Narrative: Test Performed by [facility], [address] [address] BRAIN NATRIURETIC PEPTIDE Narrative: Test Performed by [facility], [address] [place] [address] TROPONIN Narrative: Test Performed by [facility], [facility] [address] [place] [address] LACTIC ACID, PLASMA Narrative: Test Performed by [facility], [address], [place], [place] [address] URINALYSIS POCT ARTERIAL All other labs were [...] Provider NICKI Bustillo CNP 10/28/20 1750 Normal [facility] Hemogram (CBC) w/Auto Diffon 12-15-2020 Absolute Baso # 0.0 10*3/uL 0 - 0.2 10*3/uL [place] Absolute Neut # 3.1 10*3/uL 1.8 - 7 10*3/uL [place] Basophils/100 WBC (Bld) 0.7 % 0 - 2 % [place] Eosinophils (Bld) [#/Vol] 0.0 10*3/uL 0 - 0.5 10*3/uL [place] Eosinophils/100 WBC (Bld) 0.8 % Low 1 - 6 % [place] Erythrocyte distribution width (RBC) [Ratio] 14.0 % 11.5 - 14.5 % [place] Granulocytes/100 WBC (Bld) 67.1 % 40 - 80 % [place] Hematocrit (Bld) [Volume fraction] 38.1 % Low 40 - 52 % [place] Hemoglobin (Bld) [Mass/Vol] 12.9 g/dL Low 13 - 18 g/dL [place] Interpretation and review of laboratory results Abnormal [place] Lymphocytes (Bld) [#/Vol] 0.6 10*3/uL Low 1 - 4.3 10*3/uL [place] Lymphocytes/100 WBC (Bld) 13.6 % Low 20 - 40 % [place] MCH (RBC) [Entitic mass] 29.2 pg 26 - 34 pg [place] MCHC (RBC) [Mass/Vol] 33.9 % 32 - 36 % [place] MCV (RBC) [Entitic vol] 86.2 fL 80 - 98 fL [place] Monocytes (Bld) [#/Vol] 0.8 10*3/uL 0 - 0.8 10*3/uL [place] Monocytes/100 WBC (Bld) 17.8 % High 2 - 10 % [place] Platelet mean volume (Bld) [Entitic vol] 7.4 fL 7.4 - 10.4 fL [place] Platelets (Bld) [#/Vol] 223 10*3/uL 140 - 440 10*3/uL [place] RBC (Bld) [#/Vol] 4.42 10*6/uL 4.4 - 5.9 10*6/uL [place] WBC (Bld) [#/Vol] 4.6 10*3/uL 3.6 - 10.7 10*3/uL [place] Test Performed by [facility], [address] [place] [address] [place] Hemogram w/ Autodiffon 10-28 Abs Baso Cnt 0.0 10*3/uL Normal 0.0-0.2 [facility] Comment on above: Performed By: #### H EMOG, CMP3M, CRP2, LDH3, FIBGN, DDI2, APTT, FERR3 #### [facility] [address] [place] [address] Abs Neutrophile Cnt 3.1 10*3/uL Normal 1.8-7.0 [facility] Comment on above: Performed By: #### H EMOG, CMP3M, CRP2, LDH3, FIBGN, DDI2, APTT, FERR3 #### [facility] [address] [place] [address] Basophils/100 WBC (Bld) 0.7 % Normal 0.0-2.0 [facility] Comment on above: Performed By: #### H EMOG, CMP3M, CRP2, LDH3, FIBGN, DDI2, APTT, FERR3 #### [facility] [address] [place] [address] Eosinophils (Bld) [#/Vol] 0.0 10*3/uL Normal 0.0-0.5 [facility] Comment on above: Performed By: #### H EMOG, CMP3M, CRP2, LDH3, FIBGN, DDI2, APTT, FERR3 #### [facility] [address] [place] [address] Eosinophils/100 WBC (Bld) 0.8 % Low 1.0-6.0 [facility] Comment on above: Performed By: #### H EMOG, CMP3M, CRP2, LDH3, FIBGN, DDI2, APTT, FERR3 #### [facility] [address] [place] [address] Erythrocyte distribution width (RBC) [Ratio] 14.0 % Normal 11.5-14.5 [facility] Comment on above: Performed By: #### H EMOG, CMP3M, CRP2, LDH3, FIBGN, DDI2, APTT, FERR3 #### [facility] [address] [place] [address] Granulocytes/100 WBC (Bld) 67.1 % Normal 40.0-80.0 [facility] Comment on above: Performed By: #### H EMOG, CMP3M, CRP2, LDH3, FIBGN, DDI2, APTT, FERR3 #### [facility] [address] [place] [address] Hematocrit (Bld) [Volume fraction] 38.1 % Low 40.0-52.0 [facility] Comment on above: Performed By: #### H EMOG, CMP3M, CRP2, LDH3, FIBGN, DDI2, APTT, FERR3 #### [facility] [address] [place] [address] Hemoglobin (Bld) [Mass/Vol] 12.9 g/dL Low 13.0-18.0 [facility] Comment on above: Performed By: #### H EMOG, CMP3M, CRP2, LDH3, FIBGN, DDI2, APTT, FERR3 #### [facility] [address] [place] [address] Lymphocytes (Bld) [#/Vol] 0.6 10*3/uL Low 1.0-4.3 [facility] Comment on above: Performed By: #### H EMOG, CMP3M, CRP2, LDH3, FIBGN, DDI2, APTT, FERR3 #### [facility] [address] [place] [address] Lymphocytes/100 WBC (Bld) 13.6 % Low 20.0-40.0 [facility] Comment on above: Performed By: #### H EMOG, CMP3M, CRP2, LDH3, FIBGN, DDI2, APTT, FERR3 #### [facility] [address] [place] [address] MCH (RBC) [Entitic mass] 29.2 pg Normal 26.0-34.0 [facility] Comment on above: Performed By: #### H EMOG, CMP3M, CRP2, LDH3, FIBGN, DDI2, APTT, FERR3 #### [facility] [address] [place] [address] MCHC (RBC) [Mass/Vol] 33.9 % Normal 32.0-36.0 [facility] Comment on above: Performed By: #### H EMOG, CMP3M, CRP2, LDH3, FIBGN, DDI2, APTT, FERR3 #### [facility] [address] [place] [address] MCV (RBC) [Entitic vol] 86.2 fL Normal 80.0-98.0 [facility] Comment on above: Performed By: #### H EMOG, CMP3M, CRP2, LDH3, FIBGN, DDI2, APTT, FERR3 #### [facility] [address] [place] [address] Monocytes (Bld) [#/Vol] 0.8 10*3/uL Normal 0.0-0.8 [facility] Comment on above: Performed By: #### H EMOG, CMP3M, CRP2, LDH3, FIBGN, DDI2, APTT, FERR3 #### [facility] [address] [place] [address] Monocytes/100 WBC (Bld) 17.8 % High 2.0-10.0 [facility] Comment on above: Performed By: #### H EMOG, CMP3M, CRP2, LDH3, FIBGN, DDI2, APTT, FERR3 #### [facility] [address] [place] [address] Platelet mean volume (Bld) [Entitic vol] 7.4 fL Normal 7.4-10.4 [facility] Comment on above: Performed By: #### H EMOG, CMP3M, CRP2, LDH3, FIBGN, DDI2, APTT, FERR3 #### [facility] [address] [place] [address] Platelets (Bld) [#/Vol] 223 10*3/uL Normal 140-440 [facility] Comment on above: Performed By: #### H EMOG, CMP3M, CRP2, LDH3, FIBGN, DDI2, APTT, FERR3 #### [facility] [address] [place] [address] RBC (Bld) [#/Vol] 4.42 10*6/uL Normal 4.40-5.90 [facility] Comment on above: Performed By: #### H EMOG, CMP3M, CRP2, LDH3, FIBGN, DDI2, APTT, FERR3 #### [facility] [address] [place] [address] WBC (Bld) [#/Vol] 4.6 10*3/uL Normal 3.6-10.7 [facility] Comment on above: Performed By: #### H EMOG, CMP3M, CRP2, LDH3, FIBGN, DDI2, APTT, FERR3 #### [facility] [address] [place] [address] Lactic Acidon 10-28-2020 Lactate [Moles/Vol] 1.6 mmol/L Normal 0.7-2.0 [facility] Comment on above: Performed By: #### H EMOG, CMP3M, CRP2, LDH3, FIBGN, DDI2, APTT, FERR3 #### [facility] [address] [place] [address] Lactic Acid, Plasmaon 2019 Lactate [Moles/Vol] 1.6 mmol/L 0.7 - 2 mmol/L [facility], [place] NT pro BNPon 10-28-2020 Natriuretic peptide B (Bld) [Mass/Vol] 47 pg/mL Normal 0-125 [facility] Comment on above: Performed By: #### H EMOG, CMP3M, CRP2, LDH3, FIBGN, DDI2, APTT, FERR3 #### [facility] [address] [place] [address] Otheron 10-28-2020 Test Performed by [facility], [address], [place], [place] [id number] [place] [address] Test Performed by [facility], [address] [place], [place] [address] [place] POCT Arterialon 10-28-2020 Base Excess, Arterial -5.8 mmol/L Low -3 - 3 mmol/L [place] HCO3, Arterial 18.3 mmol/L Low 21 - 25 mmol/L [place] Interpretation and review of laboratory results Abnormal [place] Oxygen saturation in Blood 93.6 % Low 95 - 100 % [place] pCO2, Arterial 31.2 mm[Hg] Low 35 - 45 mm[Hg] [place] pH, Arterial 7.376 [place] pO2, Arterial 69.8 mm[Hg] Low 80 - 100 mm[Hg] [place] Sodium [Moles/Vol] 21 mmol/L [place] Comment on above: Performed by CLIA ID : [id number] [place], [place] TCO2, Arterial 19.3 mmol/L Low 23 - 27 mmol/L [place] Test Performed by [facility], [address] [place], [place] [id number] [place] [address] Procalcitoninon 10-28-2020 Interpretation See Below Normal [facility] Comment on above: Result Comment: PCT <0.50 = Low risk of severe sepsis and/or septic shock. PCT >2.00 = High risk of severe sepsis and/or septic shock. Performed By: #### H EMOG, CMP3M, CRP2, LDH3, FIBGN, DDI2, APTT, FERR3 #### [facility] [address] [place] [address] Respiratory Panel, Molecular , with COVID-19 (Restricted: [...] management decisions. This assay was developed by [employer] and distributed under an Emergency Use Authorization (EUA) granted by the FDA for the qualitative detection of SARS-CoV-2 nucleic acid. Provider and patient fact sheets can be found at https://www.fda.gov/m edia/131917/download and https://www.fda.gov/m edia/816123/download. [place] Test [facility] by [facility], [address] [place] [address] [place] Troponin Ion 10-28-2020 Troponin I.cardiac [Mass/Vol] ng/mL Normal 0.000-0.034 [facility] Comment on above: Result Comment: . Performed By: #### H EMOG, CMP3M, CRP2, LDH3, FIBGN, DDI2, APTT, FERR3 #### [facility] [address] [place] [address] Troponin x1on 10-28-2020 Troponin I.cardiac [Mass/Vol] ng/mL 0 - 0.034 ng/mL [place] Comment on above: . Urinalysison 10-28-2020 AMORPHOUS CRYSTAL Few Abnormal Negative /[HPF] [place] Comment on above: . Appearance (U) Clear Clear NA [place] Comment on above: . Bacteria, UA Few Abnormal Negative /[HPF] [place] Comment on above: . Bilirubin Urine Negative Negative mg/dL [place] Comment on above: . Color (U) Yellow Lt. Yellow NA [place] Comment on above: . Glucose, Ur Normal Normal (<70) mg/dL [place] Comment on above: . Granular Casts, UA 0-2 Abnormal Negative /[LPF] [place] Comment on above: . Hyaline Casts, UA 3-5 Abnormal Negative /[LPF] [place] Comment on above: . Interpretation and review of laboratory results Abnormal [place] Ketones Ql (U) Negative Negative mg/dL [place] Comment on above: . LEUKOCYTES, UA Negative Negative Mary/uL [place] Comment on above: . Mucous Threads Few Negative /[LPF] [place] Comment on above: . Nitrite, Urine Negative Negative NA [place] Comment on above: . Non-Squamous Epithelial <1 Abnormal Nega tive /[HPF] [place] Comment on above: . Occult Blood,Urine Negative Negative mg/dL [place] Comment on above: . pH (U) 5.5 [pH] [place] Comment on above: . Protein (U) [Mass/Vol] 20 mg/dL Abnormal Negative [place] Comment on above: . RBC (U) [#/Vol] 0-2 0 - 2 /[HPF] [place] Comment on above: . Specific [place], Urine 1.015 [place] Comment on above: . Squam Epithel, UA 0-2 3 - 5 /[HPF] [place] Comment on above: . Urobilinogen, Urine Normal Normal (0-1) mg/dL [place] Comment on above: . WBC, UA 0-2 0 - 5 /[HPF] [place] Comment on above: . Test Performed by [facility], [address], [place], [place] [address] [place] XR CHEST PORTABLEon 10-28-20 [place], [facility] Incoming Radiology [facility] - 10/28/2020 3:21 PM EST Patient Name: REGGIE LEÓN Diagnostic Radiology ACCESSION EXAM DATE/TIME PROCEDURE ORDERING PROVIDER [id number] 10/28/2020 15:05 EST CR Chest Portable BALAJI SILVERANDREW Cirilo CPT code 76497 Reason For Exam (CR Chest Portable) dyspnea [...] JOHN Transcribed Date and Time: 10/28/2020 3:21 [place] Patient Name: REGGIE LEÓN Diagnostic Radiology ACCESSION EXAM DATE/TIME PROCEDURE ORDERING PROVIDER [id number] 10/28/2020 15:05 EST CR Chest Portable BALAJI SILVER DANIEL M CPT code 55995 Reason For Exam (CR Chest Portable) dyspnea [...] JOHN Transcribed Date and Time: 10/28/2020 3:21 [place] BMP with eGFRon 05-05-2020 Age - Reported 54 years Normal [facility] Comment on above: Performed By: #### 2 45376 #### [facility],[address] [place] [address] Anion gap [Moles/Vol] 11 mmol/L Normal 10 - 20 [facility] Comment on above: Performed By: #### 2 65407 #### [facility],[address] [place] [address] Calcium [Mass/Vol] 9.5 mg/dL Normal 8.6 - 10.2 [facility] Comment on above: Performed By: #### 2 77696 #### [facility],[address] [place] [address] CO2 [Moles/Vol] 24.7 mmol/L Normal 21.0 - 31.0 [facility] Comment on above: Performed By: #### 2 73918 #### [facility],[address] [place] [address] GFR/1.73 sq M predicted among non-blacks MDRD (S/P/Bld) [Vol rate/Area] 27 ML/MINUTE Low 60 - 999 [facility] Comment on above: Performed By: #### 2 71071 #### [facility],[address] [place] [address] GFR/1.73 sq M predicted among non-blacks MDRD (S/P/Bld) [Vol rate/Area] 33 ML/MINUTE Low 60 - 999 [facility] Comment on above: Result Comment: ACCO RDING TO THE NATIONAL KIDNEY DISEASE EDUCATION PROGRAM(NKDE), A NORMAL eGFR IS A VALUE GREATER THAN OR EQUAL TO 60 ML/MIN/1.73 SQ METERS. CHRONIC KIDNEY DISEASE: <60mL/MIN/1.73 SQ METERS KIDNEY FAILURE: <15mL/MIN/1.73 SQ METERS THIS TEST SHOULD ONLY BE USED FOR PATIENTS 18 YEARS OF AGE AND OLDER. Performed By: #### 2 48327 #### [address] [address] GFR/1.73 sq M predicted among non-blacks MDRD (S/P/Bld) [Vol rate/Area] Normal [facility] Comment on above: Result Comment: BASI C METABOLIC PANEL Performed By: #### 2 87221 #### [address] [address] Glucose [Mass/Vol] 113 mg/dL High 74 - 106 [facility] Comment on above: Performed By: #### 2 14086 #### [address] [address] Potassium [Moles/Vol] 4.1 mmol/L Normal 3.5 - 5.1 [facility] Comment on above: Performed By: #### 2 14646 #### [facility],[address] [place] [address] Urea nitrogen [Mass/Vol] 24 mg/dL High 6 - 20 [facility] Comment on above: Performed By: #### 2 41557 #### [address] [address] CBC + DIFFon 05-05-2020 Basophils (Bld) [#/Vol] 0.10 x10EE3/UL Normal 0.00 - 0 .10 [facility] Comment on above: Performed By: #### 2 08671 #### [facility],[address] [place] [address] Basophils/100 WBC (Bld) 0.9 % Normal 0.0 - 2.0 [facility] Comment on above: Performed By: #### 2 90060 #### [facility],[address] [place] [address] CBC + DIFF Normal [facility] Comment on above: Result Comment: CBC- COMPLETE BLOOD COUNT Performed By: #### 2 08828 #### [facility],[address] [place] [address] Eosinophils (Bld) [#/Vol] 0.40 x10EE3/UL Normal 0.00 - 0.50 [facility] Comment on above: Performed By: #### 2 08571 #### [facility],[address] [place] [address] Eosinophils/100 WBC (Bld) 5.4 % Normal 0.0 - 7.0 [facility] Comment on above: Performed By: #### 2 67511 #### [place] [address] Erythrocyte distribution width (RBC) [Ratio] 12.7 % Normal 12.0 - 15.6 [facility] Comment on above: Performed By: #### 2 18857 #### [facility],[address] [place] [address] Hematocrit (Bld) [Volume fraction] 37.0 % Low 40.0 - 52.0 [facility] Comment on above: Performed By: #### 2 35125 #### [facility],[address] [place], [place] [address] Hemoglobin (Bld) [Mass/Vol] 13.0 g/dL Normal 13.0 - 17.5 [facility] Comment on above: Performed By: #### 2 60957 #### [facility],[address] [place], [place] [id number] Lymphocytes (Bld) [#/Vol] 1.50 x10EE3/UL Normal 0.80 - 2.80 [facility] Comment on above: Performed By: #### 2 84391 #### [facility],[address] [place] [address] Lymphocytes/100 WBC (Bld) 18.7 % Low 20.0 - 45. 0 [facility] Comment on above: Performed By: #### 2 54250 #### [facility],[address] [place] [address] MANUAL DIFF N/A Normal [facility] Comment on above: Performed By: #### 2 39961 #### [facility],[address] [place] [address] MCH (RBC) [Entitic mass] 31 pg Normal 27 - 33 [facility] Comment on above: Performed By: #### 2 35604 #### [facility],[address] [place] [address] MCHC (RBC) [Mass/Vol] 35 X10 3 Normal 32 - 36 [facility] Comment on above: Performed By: #### 2 46521 #### [facility],[address] [place] [address] MCV (RBC) [Entitic vol] 87 fL Normal 81 - 98 [facility] Comment on above: Performed By: #### 2 87187 #### [facility],[address] [place] [address] Monocytes (Bld) [#/Vol] 1.20 x10EE3/UL High 0.20 - 1 .00 [facility] Comment on above: Performed By: #### 2 27346 #### [facility],[address] [place] [address] MONOS % 14.8 % High 0.0 - 10.0 [facility] Comment on above: Performed By: #### 2 79018 #### [facility],[address] [place] [address] Morphology [place]pin (Bld) [Interp] N/A Normal [facility] Comment on above: Performed By: #### 2 15584 #### [facility],[address] [place] [address] Neutrophils (Bld) [#/Vol] 4.80 x10EE3/UL Normal 1.50 - 7.10 [facility] Comment on above: Performed By: #### 2 95513 #### [facility],[address] [place] [address] Neutrophils/100 WBC (Bld) 60.2 % Normal 46.0 - 76. 0 [facility] Comment on above: Performed By: #### 2 80970 #### [facility],[address] [place] [address] Platelet mean volume (Bld) [Entitic vol] 7.2 fL Normal 6.4 - 10.5 [facility] Comment on above: Result Comment: AUTO MATED DIFFERENTIAL Performed By: #### 2 66904 #### [facility],[address] [place] [address] Platelets (Bld) [#/Vol] 286 x10EE3/UL Normal 150 - 450 [facility] Comment on above: Performed By: #### 2 45947 #### [facility],[address] [place] [address] RBC (Bld) [#/Vol] 4.24 x 10EE6/UL Low 4.50 - 6.00 [facility] Comment on above: Performed By: #### 2 18736 #### [facility],[address] [place] [address] WBC (Bld) [#/Vol] 8.0 x 10EE3/UL Normal 4.5 - 10.8 [facility] Comment on above: Performed By: #### 2 29790 #### [facility],[address] [place] [address] CULTURE URINEon 05-05-2020 CULTURE URINE CULTURE URINE _URINE CULTURE_ M I C R O B I O L O G Y R E P O R T FINAL Antimicrobial Susceptibility and Organism Identification Report Specimen Number : [id number] Requested : 05/05/20 Specimen Source : URINE Collected : 05/05/20 03:00 [place] of Isolation : REJITerra HUANG Received : 05/05/20 03:00 Requesting Physician : FLORECITA ------ Patient/Specimen Tests and Comments Specimen Comments FINAL REPORT: NO GROWTH AT 48 HOURS ------ Tech : Source : URINE ID # : [id number] FINAL Report Date : / / : Collected : 05/05/20 03:00 05/[id number]/[email or web address]. 05/06/[email or web address]. 05/07/[email or web address] PLETE Normal [facility] Comment on above: Performed By: #### 2 21698 #### [facility],[address] [place] [address] LITHIUMon 05-05-2020 [place] [Moles/Vol] 0.9 mmol/L Normal 0.6 - 1.2 [facility] Comment on above: Performed By: #### 2 82936 #### [facility],[address] [place] [address] RENAL FUNCTION PANELon 05-05 Albumin [Mass/Vol] 3.3 g/dL Low 3.4 - 4.8 [facility] Comment on above: Performed By: #### 2 03754 #### [facility],[address] [place] [address] B/C RATIO 10 ratio Normal 0 - 30 [facility] Comment on above: Performed By: #### 2 29007 #### [facility],[address] [place] [address] Chloride [Moles/Vol] 107 mmol/L Normal 98 - 107 [facility] Comment on above: Performed By: #### 2 86351 #### [facility],[address] [place] [address] Creatinine [Mass/Vol] 2.5 mg/dL High 0.7 - 1.3 [facility] Comment on above: Performed By: #### 2 15523 #### [facility],[address] [place] [address] Phosphate [Mass/Vol] 4.9 mg/dL Normal 2.7 - 4.9 [facility] Comment on above: Performed By: #### 2 38380 #### [facility],[address] [place] [address] 30549 RENAL FUNCTION PANEL Normal [facility] Comment on above: Result Comment: JESSICA L FUNCTION PANEL Performed By: #### 2 99352 #### [facility],[address] [place] [address] 00637 Sodium [Moles/Vol] 139 mmol/L Normal 136 - 145 [facility] Comment on above: Performed By: #### 2 12067 #### [facility],[address] [place] [address] 85661 URINALYSISon 05-05-2020 Bilirubin [Mass/Vol] Negative Normal NORMAL: NEGATIVE [facility] Comment on above: Performed By: #### 2 14770 #### [facility],[address] [place] [address] 31773 Blood Negative Normal NORMAL: NEGATIVE [facility] Comment on above: Performed By: #### 2 83962 #### [facility],[address] [place] [address] 74194 Clarity (U) clear Normal NORMAL: CLEAR [facility] Comment on above: Performed By: #### 2 01555 #### [facility],[address] [place] [address] 76163 Color (U) yellow Normal NORMAL: YELLOW [facility] Comment on above: Performed By: #### 2 45406 #### [facility],[address] [place] [address] 41496 Glucose [Mass/Vol] NORM Normal NORMAL: NORMAL [facility] Comment on above: Performed By: #### 2 22525 #### [facility],[address] [place] [address] 42815 Ketone Negative Normal NORMAL: NEGATIVE [facility] Comment on above: Performed By: #### 2 42394 #### [facility],[address] [place] [address] 83872 Microscopic NOT INDICATED Normal [facility] Comment on above: Performed By: #### 2 05103 #### [facility],[address] [place] [address] 98891 Nitrite Ql (U) Negative Normal NORMAL: NEGATIVE [facility] Comment on above: Performed By: #### 2 88581 #### [facility],[address] [place] [address] 58580 pH (Bld) 6 Normal NORMAL: 5.0-8.0 [facility] Comment on above: Performed By: #### 2 86391 #### [facility],[address] [place] [address] Protein (U) [Mass/Vol] Negative Normal JENN L: NEGATIVE [facility] Comment on above: Performed By: #### 2 20554 #### [facility],[address] [place] [address] Sp [place] 1.020 Normal NORMAL: 1.010-1.030 [facility] Comment on above: Performed By: #### 2 83883 #### [facility],[address] [place] [address] Specimen type Nom (Spec) UNSPECIFIED Normal [facility] Comment on above: Performed By: #### 2 97815 #### [facility],[address] [place], [place] [id number] Urobilinog NORM Normal NORMAL: NORMAL [facility] Comment on above: Performed By: #### 2 94507 #### [facility],[address] [place] [address] 04485 WBC (Bld) [#/Vol] Negative Normal NORMAL: NEGATIVE [facility] Comment on above: Performed By: #### 2 67068 #### [facility],[address] [place], [place] [phone] CBC + DIFFon 04-08-2020 Basophils (Bld) [#/Vol] 0.10 x10EE3/UL Normal 0.00 - 0 .10 [facility] Comment on above: Performed By: #### 2 40902 ####[facility],[address] [place] [address] Basophils/100 WBC (Bld) 1.2 % Normal 0.0 - 2.0 [facility] Comment on above: Performed By: #### 2 36825 ####[facility],[address] [place] [address] CBC + DIFF Normal [facility] Comment on above: Result Comment: CBC- COMPLETE BLOOD COUNT Performed By: #### 2 22472 ####[place] [address] Eosinophils (Bld) [#/Vol] 0.40 x10EE3/UL Normal 0.00 - 0.50 [facility] Comment on above: Performed By: #### 2 15746 ####[place] [address] Eosinophils/100 WBC (Bld) 4.3 % Normal 0.0 - 7.0 [facility] Comment on above: Performed By: #### 2 32660 ####[place] [address] Erythrocyte distribution width (RBC) [Ratio] 12.9 % Normal 12.0 - 15.6 [facility] Comment on above: Performed By: #### 2 55652 ####[facility],[address] [place] [address] Hematocrit (Bld) [Volume fraction] 38.7 % Low 40.0 - 52.0 [facility] Comment on above: Performed By: #### 2 37922 ####[place] [address] Hemoglobin (Bld) [Mass/Vol] 13.4 g/dL Normal 13.0 - 17.5 [facility] Comment on above: Performed By: #### 2 95257 ####[place] [address],[place] [address] Lymphocytes (Bld) [#/Vol] 1.80 x10EE3/UL Normal 0.80 - 2.80 [facility] Comment on above: Performed By: #### 2 83478 ####[facility],[address] [place] [address] 54280 Lymphocytes/100 WBC (Bld) 21.9 % Normal 20.0 - 45. 0 [facility] Comment on above: Performed By: #### 2 13720 ####[facility],[address] [place] [address] 27286 MANUAL DIFF N/A Normal [facility] Comment on above: Performed By: #### 2 90220 ####[facility],[address] [place], [place] [phone] MCH (RBC) [Entitic mass] 31 pg Normal 27 - 33 [facility] Comment on above: Performed By: #### 2 87309 ####[facility],[address] [place] [address] 38148 MCHC (RBC) [Mass/Vol] 35 X10 3 Normal 32 - 36 [facility] Comment on above: Performed By: #### 2 78928 ####[facility],[address] [place] [address] 03731 MCV (RBC) [Entitic vol] 88 fL Normal 81 - 98 [facility] Comment on above: Performed By: #### 2 54945 ####[facility],[address] [place] [address] 69271 Monocytes (Bld) [#/Vol] 1.20 x10EE3/UL High 0.20 - 1 .00 [facility] Comment on above: Performed By: #### 2 81662 ####[facility],[address] [place] [address] 99133 MONOS % 14.1 % High 0.0 - 10.0 [facility] Comment on above: Performed By: #### 2 46573 ####[facility],[address] [place] [address] 75751 Morphology Crispin (Bld) [Interp] N/A Normal [facility] Comment on above: Performed By: #### 2 68877 ####[facility],[address] [place] [address] 98493 Neutrophils (Bld) [#/Vol] 4.90 x10EE3/UL Normal 1.50 - 7.10 [facility] Comment on above: Performed By: #### 2 52446 ####[facility],[address] [place] [address] 71941 Neutrophils/100 WBC (Bld) 58.5 % Normal 46.0 - 76. 0 [facility] Comment on above: Performed By: #### 2 91092 ####[facility],[address] [place] [address] 34400 Platelet mean volume (Bld) [Entitic vol] 7.4 fL Normal 6.4 - 10.5 [facility] Comment on above: Result Comment: AUTO MATED DIFFERENTIAL Performed By: #### 2 59390 ####[facility],[address] [place] [address] 13839 Platelets (Bld) [#/Vol] 268 x10EE3/UL Normal 150 - 450 [facility] Comment on above: Performed By: #### 2 05688 ####[facility],[address] [place] [address] 55392 RBC (Bld) [#/Vol] 4.41 x 10EE6/UL Low 4.50 - 6.00 [facility] Comment on above: Performed By: #### 2 18751 ####[address] [address] WBC (Bld) [#/Vol] 8.3 x 10EE3/UL Normal 4.5 - 10.8 [facility] Comment on above: Performed By: #### 2 81158 ####[facility] [place] [address] 01772 CULTURE URINEon 04-08-2020 CULTURE URINE CULTURE URINE _URINE CULTURE_ M I C R O B I O L O G Y R E P O R T FINAL Antimicrobial Susceptibility and Organism Identification Report Specimen Number : [id number] Requested : 04/08/20 Specimen Source : CLEAN CATCH URINE Collected : 04/08/20 06:28 [place] of Isolation : MEME HUANG Received : 04/08/20 06:28 Requesting Physician : FLORECITA ------ Patient/Specimen Tests and Comments Specimen Comments FINAL REPORT: NO GROWTH AT 48 HOURS ------ Tech : Source : CLEAN CATCH URINE ID # : [id number] FINAL Report Date : / / : Collected : 04/08/20 06:28 04/10/20.1059.BKO. 04/09/20.1214.KLS. 04/10/20.1059.[employer] PLETE Normal [facility] Comment on above: Performed By: #### 2 36154 #### [facility],[address] [place] [address] 92449 HEPATIC FUNCTION PANELon Albumin [Mass/Vol] 3.4 g/dL Normal 3.4 - 4.8 [facility] Comment on above: Performed By: #### 2 81968 ####[facility],[address] [place] [address] 83322 Performed By: #### 2 37024 ####[facility],[address] [place] [address] 38777 ALK PHOS 65 U/L Normal 38 - 126 [facility] Comment on above: Performed By: #### 2 48174 ####[facility],[address] [place] [address] 39544 ALT/SGPT 16 U/L Normal 10 - 40 [facility] Comment on above: Performed By: #### 2 02465 ####[facility],[address] [place] [address] 74177 AST/SGOT 10 U/L Low 13 - 39 [facility] Comment on above: Performed By: #### 2 03147 ####[facility],[address] [place] [address] 93010 Bilirubin [Mass/Vol] 0.4 mg/dL Normal 0.0 - 1.5 [facility] Comment on above: Performed By: #### 2 76605 ####[facility],[address] [place] [address] 69504 Bilirubin.direct [Mass/Vol] 0.1 mg/dL Normal 0.0 - 0.1 [facility] Comment on above: Performed By: #### 2 97793 ####[facility],[address] [place] [address] 93870 HEPATIC FUNCTION PANEL Normal [facility] Comment on above: Result Comment: HEPA TIC FUNCTION PROFILE Performed By: #### 2 42888 ####[facility],[address] [place] [address] 71639 Protein [Mass/Vol] 5.4 g/dL Low 6.4 - 8.3 [facility] Comment on above: Performed By: #### 2 21189 ####[facility],[address] [place] [address] 70138 LITHIUMon 04-08-2020 [place] [Moles/Vol] 0.7 mmol/L Normal 0.6 - 1.2 [facility] Comment on above: Performed By: #### 2 03393 ####[facility],[address] [place], [place] [phone] RENAL FUNCTION PANELon 04-08 B/C RATIO 11 ratio Normal 0 - 30 [facility] Comment on above: Performed By: #### 2 23188 ####[facility],[address] [place] [address] 66267 Calcium [Mass/Vol] 9.5 mg/dL Normal 8.6 - 10.2 [facility] Comment on above: Performed By: #### 2 80875 ####[facility],[address] [place] [address] 59769 Chloride [Moles/Vol] 105 mmol/L Normal 98 - 107 [facility] Comment on above: Performed By: #### 2 93560 ####[facility],[address] [place] [address] 64470 CO2 [Moles/Vol] 25.4 mmol/L Normal 21.0 - 31.0 [facility] Comment on above: Performed By: #### 2 15386 ####[facility],[address] [place] [address] 86657 Creatinine [Mass/Vol] 2.1 mg/dL High 0.7 - 1.3 [facility] Comment on above: Performed By: #### 2 08801 ####[facility],[address] [place] [address] 23162 Glucose [Mass/Vol] 105 mg/dL Normal 74 - 106 [facility] Comment on above: Performed By: #### 2 03343 ####[facility],[address] [place] [address] 25924 Phosphate [Mass/Vol] 5.2 mg/dL High 2.7 - 4.9 [facility] Comment on above: Performed By: #### 2 96602 ####[facility],[address] [place] [address] 70598 Potassium [Moles/Vol] 3.8 mmol/L Normal 3.5 - 5.1 [facility] Comment on above: Performed By: #### 2 62933 ####[facility],[address] [place] [address] 76234 RENAL FUNCTION PANEL Normal [facility] Comment on above: Result Comment: JESSICA L FUNCTION PANEL Performed By: #### 2 00634 ####[facility],[address] [place] [address] 77127 Sodium [Moles/Vol] 139 mmol/L Normal 136 - 145 [facility] Comment on above: Performed By: #### 2 69920 ####[facility],[address] [place] [address] 70522 Urea nitrogen [Mass/Vol] 23 mg/dL High 6 - 20 [facility] Comment on above: Performed By: #### 2 68555 ####[facility],[address] [place], [place] [phone] URINALYSISon 04-08-2020 Bilirubin [Mass/Vol] Negative Normal NORMAL: NEGATIVE [facility] Comment on above: Performed By: #### 2 66546 #### [facility],[address] [place] [address] 94679 Blood Negative Normal NORMAL: NEGATIVE [facility] Comment on above: Performed By: #### 2 45278 #### [facility],[address] [place], [place] [phone] Clarity (U) clear Normal NORMAL: CLEAR [facility] Comment on above: Performed By: #### 2 19391 #### [facility],[address] [place], [place] [phone] Color (U) p.yel Normal NORMAL: YELLOW [facility] Comment on above: Performed By: #### 2 85979 #### [facility],[address] [place], [place] [phone] Glucose [Mass/Vol] NORM Normal NORMAL: NORMAL [facility] Comment on above: Performed By: #### 2 22676 #### [facility],[address] [place], [place] [phone] Ketone Negative Normal NORMAL: NEGATIVE [facility] Comment on above: Performed By: #### 2 36365 #### [facility],[address] [place], [place] [phone] Microscopic NOT INDICATED Normal [facility] Comment on above: Performed By: #### 2 10614 #### [facility],[address] [place] [address] 64370 Nitrite Ql (U) Negative Normal NORMAL: NEGATIVE [facility] Comment on above: Performed By: #### 2 56892 #### [facility],[address] [place] [address] 33132 pH (Bld) 6 Normal NORMAL: 5.0-8.0 [facility] Comment on above: Performed By: #### 2 61133 #### [facility],[address] [place] [address] 63994 Protein (U) [Mass/Vol] Negative Normal JENN L: NEGATIVE [facility] Comment on above: Performed By: #### 2 98395 #### [facility],[address] [place] [address] 39289 Sp [place] 1.020 Normal NORMAL: 1.010-1.030 [facility] Comment on above: Performed By: #### 2 84219 #### [facility],[address] [place] [address] 34773 Specimen type Nom (Spec) Clean catch Normal [facility] Comment on above: Performed By: #### 2 35019 #### [facility],[address] [place] [address] 54851 Urobilinog NORM Normal NORMAL: NORMAL [facility] Comment on above: Performed By: #### 2 23387 #### [facility],[address] [place] [address] 84242 WBC (Bld) [#/Vol] Negative Normal NORMAL: NEGATIVE [facility] Comment on above: Performed By: #### 2 24097 #### [facility],[address] [place] [address] 47317 URINE CREATININE AND PROTEIN RATIOon 04-08-2020 CREATININE UR 146.3 mg/dl Normal [facility] Comment on above: Performed By: #### 2 02509 ####[facility],[address] [place] [address] 69698 PC RATIO 0.06 mg/dL Normal 0.00 - 10.00 [facility] Comment on above: Performed By: #### 2 25478 ####[facility],[address] [place] [address] 80937 Protein (U) [Mass/Vol] 9.00 mg/dL Normal 0.00 - 10.00 [facility] Comment on above: Performed By: #### 2 41470 ####[facility],[address] [place], [place] [phone] HGB A1C [CCL]on 03-18-2020 HbA1c (Bld) [Mass fraction] 117 mg/dL Normal [facility] Comment on above: Result Comment: eAG: (Estimated average glucose) is a calculated value from HgbA1c and is branch service representative of the average blood glucose level in the last 2-3 month period. [facility] [address] [place] [address] Dre Gilliland III, M.D. [id number] Performed By: #### 2 39263 ####[place] [address] HbA1c (Bld) [Mass fraction] 5.7 % High 4.3-5.6 [facility] Comment on above: Result Comment: Amer ican Diabetes Association guidelines indicate that patients with HgbA1c in the range 5.7-6.4% are at increased risk for development of diabetes, and intervention by lifestyle modification may be beneficial. HgbA1c greater or equal to 6.5% is considered diagnostic of diabetes. Performed By: #### 2 69273 ####[facility],[address] [place], [place] [phone] Hemoglobin A1con 03-18-2020 HbA1c (Bld) [Mass fraction] 5.7 % High 4.3-5.6 [facility] Comment on above: Performed By: #### H BA1C #### [facility] [address] [place] [address] HbA1c (Bld) [Mass fraction] 117 mg/dL Normal [facility] Comment on above: Performed By: #### H BA1C #### [facility] [address] [place] [address] LIPID PROFILEon 03-17-2020 Cholesterol [Mass/Vol] 133 mg/dL Normal 0 - 200 [facility] Comment on above: Performed By: #### 2 69728 ####[facility],[address] [place] [address] 20979 Cholesterol in HDL [Mass/Vol] 29 mg/dL Low 40 - 60 [facility] Comment on above: Performed By: #### 2 31517 ####[facility],[address] [place] [address] 53809 Cholesterol in LDL [Mass/Vol] 59 mg/dL Normal 0 - 129 [facility] Comment on above: Performed By: #### 2 43525 ####[facility],[address] [place] [address] 33234 Cholesterol.total/Choleste rol in HDL [Mass ratio] 4.6 {ratio} Normal 0.0 - 5.0 [facility] Comment on above: Performed By: #### 2 70522 ####[facility],[address] [place] [address] 50716 Lipid 1996 panel Normal [facility] Comment on above: Result Comment: LIPI D PROFILE Performed By: #### 2 43967 ####[facility],[address] [place] [address] 50392 Triglyceride [Mass/Vol] 224 mg/dL High 0 - 150 [facility] Comment on above: Performed By: #### 2 33061 ####[facility],[address] [place] [address] 64758 TSHon 03-17-2020 TSH Qn 0.99 uIU/ml Normal 0.34 - 5.60 [facility] Comment on above: Performed By: #### 2 48396 ####[facility],[address] [place] [address] 36047 URINE CREATININE AND PROTEIN RATIOon 03-11-2020 CREATININE UR 65.8 mg/dl Normal [facility] Comment on above: Performed By: #### 2 47124 ####[facility],[address] [place] [address] 89504 PC RATIO 0.06 mg/dL Normal 0.00 - 10.00 [facility] Comment on above: Performed By: #### 2 35332 ####[facility],[address] [place] [address] 35496 Protein (U) [Mass/Vol] mg/dL Normal 0.00 - 10.00 [facility] Comment on above: Performed By: #### 2 14289 ####[facility],[address] [place] [address] 39838 CBC + DIFFon 03-10-2020 Basophils (Bld) [#/Vol] 0.10 x10EE3/UL Normal 0.00 - 0 .10 [facility] Comment on above: Performed By: #### 2 31216 #### [facility],[address] [place] [address] 86660 Basophils/100 WBC (Bld) 1.3 % Normal 0.0 - 2.0 [facility] Comment on above: Performed By: #### 2 42565 #### [facility],[address] [place] [address] 60387 CBC + DIFF Normal [facility] Comment on above: Result Comment: CBC- COMPLETE BLOOD COUNT Performed By: #### 2 99192 #### [facility],[address] [place] [address] 98175 Eosinophils (Bld) [#/Vol] 0.40 x10EE3/UL Normal 0.00 - 0.50 [facility] Comment on above: Performed By: #### 2 00600 #### [facility],[address] [place] [address] 07767 Eosinophils/100 WBC (Bld) 5.7 % Normal 0.0 - 7.0 [facility] Comment on above: Performed By: #### 2 42385 #### [facility],[address] [place] [address] 51900 Erythrocyte distribution width (RBC) [Ratio] 13.3 % Normal 12.0 - 15.6 [facility] Comment on above: Performed By: #### 2 73249 #### [facility],[address] [place] [address] 42721 Hematocrit (Bld) [Volume fraction] 40.4 % Normal 40.0 - 52.0 [facility] Comment on above: Performed By: #### 2 58929 #### [facility],[address] [place] [address] 81958 Hemoglobin (Bld) [Mass/Vol] 13.8 g/dL Normal 13.0 - 17.5 [facility] Comment on above: Performed By: #### 2 86957 #### [facility],[address] [place] [address] 02435 Lymphocytes (Bld) [#/Vol] 1.30 x10EE3/UL Normal 0.80 - 2.80 [facility] Comment on above: Performed By: #### 2 94044 #### [facility],[address] [place] [address] 65571 Lymphocytes/100 WBC (Bld) 20.1 % Normal 20.0 - 45. 0 [facility] Comment on above: Performed By: #### 2 35264 #### [facility],[address] [place] [address] 92241 MANUAL DIFF N/A Normal [facility] Comment on above: Performed By: #### 2 58682 #### [facility],[address] [place] [address] 89008 MCH (RBC) [Entitic mass] 30 pg Normal 27 - 33 [facility] Comment on above: Performed By: #### 2 79605 #### [facility],[address] [place] [address] 72164 MCHC (RBC) [Mass/Vol] 34 X10 3 Normal 32 - 36 [facility] Comment on above: Performed By: #### 2 35944 #### [facility],[address] [place] [address] 80133 MCV (RBC) [Entitic vol] 88 fL Normal 81 - 98 [facility] Comment on above: Performed By: #### 2 07696 #### [facility],[address] [place] [address] 99629 Monocytes (Bld) [#/Vol] 0.90 x10EE3/UL Normal 0.20 - 1 .00 [facility] Comment on above: Performed By: #### 2 04994 #### [facility],[address] [place] [address] 14224 MONOS % 13.7 % High 0.0 - 10.0 [facility] Comment on above: Performed By: #### 2 91206 #### [address] [address] Morphology Crispin (Bld) [Interp] N/A Normal [facility] Comment on above: Performed By: #### 2 43939 #### [address] [address]14 Neutrophils (Bld) [#/Vol] 3.80 x10EE3/UL Normal 1.50 - 7.10 [facility] Comment on above: Performed By: #### 2 38368 #### [place] [id number] Neutrophils/100 WBC (Bld) 59.2 % Normal 46.0 - 76. 0 [facility] Comment on above: Performed By: #### 2 53860 #### [address] [address] Platelet mean volume (Bld) [Entitic vol] 7.8 fL Normal 6.4 - 10.5 [facility] Comment on above: Result Comment: AUTO MATED DIFFERENTIAL Performed By: #### 2 84819 #### [address] [address] Platelets (Bld) [#/Vol] 291 x10EE3/UL Normal 150 - 450 [facility] Comment on above: Performed By: #### 2 28666 #### [facility] [facility],[address] [place] [address] 39114 RBC (Bld) [#/Vol] 4.57 x 10EE6/UL Normal 4.50 - 6.00 [facility] Comment on above: Performed By: #### 2 86601 #### [facility],[address] [place] [address] 10376 WBC (Bld) [#/Vol] 6.4 x 10EE3/UL Normal 4.5 - 10.8 [facility] Comment on above: Performed By: #### 2 76524 #### [facility],[address] [place] [address] 79343 LITHIUMon 03-10-2020 [place] [Moles/Vol] 0.8 mmol/L Normal 0.6 - 1.2 [facility] Comment on above: Performed By: #### 2 93687 #### [facility],[address] [place] [address] 07255 RENAL FUNCTION PANEL WITH eG FRon 03-10-2020 Age - Reported 54 years Normal [facility] Comment on above: Performed By: #### 2 49984 ####[facility],[address] [place] [address] 86414 Albumin [Mass/Vol] 3.5 g/dL Normal 3.4 - 4.8 [facility] Comment on above: Performed By: #### 2 68168 ####[facility],[address] [place] [address] 51047 B/C RATIO 8 ratio Normal 0 - 30 [facility] Comment on above: Performed By: #### 2 10967 ####[facility],[address] [place] [address] 24682 Calcium [Mass/Vol] 9.4 mg/dL Normal 8.6 - 10.2 [facility] Comment on above: Performed By: #### 2 92127 ####[facility],[address] [place] [address] 46516 Chloride [Moles/Vol] 106 mmol/L Normal 98 - 107 [facility] Comment on above: Performed By: #### 2 12287 ####[facility],[address] [place] [address] 52774 CO2 [Moles/Vol] 26.1 mmol/L Normal 21.0 - 31.0 [facility] Comment on above: Performed By: #### 2 39180 ####[address] [address] Creatinine [Mass/Vol] 2.5 mg/dL High 0.7 - 1.3 [facility] Comment on above: Performed By: #### 2 01114 ####[facility],[address] [place] [address] 81488 GFR/1.73 sq M predicted among non-blacks MDRD (S/P/Bld) [Vol rate/Area] 33 ML/MINUTE Low 60 - 999 [facility] Comment on above: Result Comment: ACCO RDING TO THE NATIONAL KIDNEY DISEASE EDUCATION PROGRAM(NKDE), A NORMAL eGFR IS A VALUE GREATER THAN OR EQUAL TO 60 ML/MIN/1.73 SQ METERS. CHRONIC KIDNEY DISEASE: <60mL/MIN/1.73 SQ METERS KIDNEY FAILURE: <15mL/MIN/1.73 SQ METERS THIS TEST SHOULD ONLY BE USED FOR PATIENTS 18 YEARS OF AGE AND OLDER. Performed By: #### 2 39115 ####[facility],[address] [place] [address] 10465 GFR/1.73 sq M predicted among non-blacks MDRD (S/P/Bld) [Vol rate/Area] 27 ML/MINUTE Low 60 - 999 [facility] Comment on above: Performed By: #### 2 31350 ####[facility],[address] [place] [address] 40739 Glucose [Mass/Vol] 114 mg/dL High 74 - 106 [facility] Comment on above: Performed By: #### 2 32565 ####[address] 8[address]68 Phosphate [Mass/Vol] 4.6 mg/dL Normal 2.7 - 4.9 [facility] Comment on above: Performed By: #### 2 96758 ####[facility],[address] [place] [address] 49463 Potassium [Moles/Vol] 3.9 mmol/L Normal 3.5 - 5.1 [facility] Comment on above: Performed By: #### 2 00984 ####[facility],[address] [place] [address] 55582 RENAL FUNCTION PANEL WITH eGFR Normal [facility] Comment on above: Result Comment: JESSICA L FUNCTION PANEL Performed By: #### 2 02566 ####[facility],[address] [place] [address] 46751 Sodium [Moles/Vol] 139 mmol/L Normal 136 - 145 [facility] Comment on above: Performed By: #### 2 06274 ####[facility],[address] [place] [address] 48417 Urea nitrogen [Mass/Vol] 21 mg/dL High 6 - 20 [facility] Comment on above: Performed By: #### 2 33802 ####[facility],[address] [place] [address] 05187 CBC + DIFFon 02-04-2020 Basophils (Bld) [#/Vol] 0.10 x10EE3/UL Normal 0.00 - 0 .10 [facility] Comment on above: Performed By: #### 2 49709 #### [facility],[address] [place] [address] 96504 Basophils/100 WBC (Bld) 1.3 % Normal 0.0 - 2.0 [facility] Comment on above: Performed By: #### 2 96085 #### [facility],[address] [place] [address] 87421 CBC + DIFF Normal [facility] Comment on above: Result Comment: CBC- COMPLETE BLOOD COUNT Performed By: #### 2 73275 #### [facility],[address] [place], [place] [phone] Eosinophils (Bld) [#/Vol] 0.40 x10EE3/UL Normal 0.00 - 0.50 [facility] Comment on above: Performed By: #### 2 79178 #### [facility],[address] [place] [address] 98856 Eosinophils/100 WBC (Bld) 5.6 % Normal 0.0 - 7.0 [facility] Comment on above: Performed By: #### 2 85087 #### [place] [address] Erythrocyte distribution width (RBC) [Ratio] 13.2 % Normal 12.0 - 15.6 [facility] Comment on above: Performed By: #### 2 76277 #### [place] [address] Hematocrit (Bld) [Volume fraction] 38.7 % Low 40.0 - 52.0 [facility] Comment on above: Performed By: #### 2 73508 #### [place] [id number] Hemoglobin (Bld) [Mass/Vol] 13.2 g/dL Normal 13.0 - 17.5 [facility] Comment on above: Performed By: #### 2 61982 #### [place] [id number] Lymphocytes (Bld) [#/Vol] 1.40 x10EE3/UL Normal 0.80 - 2.80 [facility] Comment on above: Performed By: #### 2 58991 #### [place] [phone] Lymphocytes/100 WBC (Bld) 18.1 % Low 20.0 - 45. 0 [facility] Comment on above: Performed By: #### 2 96550 #### [facility],[address] [place] [address] MANUAL DIFF N/A Normal [facility] Comment on above: Performed By: #### 2 36470 #### [facility],[address] [place] [address] MCH (RBC) [Entitic mass] 30 pg Normal 27 - 33 [facility] Comment on above: Performed By: #### 2 63313 #### [place] [address] MCHC (RBC) [Mass/Vol] 34 X10 3 Normal 32 - 36 [facility] Comment on above: Performed By: #### 2 39046 #### [place] [address] MCV (RBC) [Entitic vol] 88 fL Normal 81 - 98 [facility] Comment on above: Performed By: #### 2 17887 #### [place] [address] Monocytes (Bld) [#/Vol] 1.10 x10EE3/UL High 0.20 - 1 .00 [facility] Comment on above: Performed By: #### 2 99377 #### [place] [address] MONOS % 13.6 % High 0.0 - 10.0 [facility] Comment on above: Performed By: #### 2 63509 #### [facility],[address] [place], [place] [phone] Morphology [place] (Bld) [Interp] N/A Normal [facility] Comment on above: Performed By: #### 2 40369 #### [place] [address] Neutrophils (Bld) [#/Vol] 4.80 x10EE3/UL Normal 1.50 - 7.10 [facility] Comment on above: Performed By: #### 2 98290 #### [place] [address],[place] [address] Neutrophils/100 WBC (Bld) 61.4 % Normal 46.0 - 76. 0 [facility] Comment on above: Performed By: #### 2 38779 #### [facility],[address] [place] [address] Platelet mean volume (Bld) [Entitic vol] 7.7 fL Normal 6.4 - 10.5 [facility] Comment on above: Result Comment: AUTO MATED DIFFERENTIAL Performed By: #### 2 48052 #### [address] [address] Platelets (Bld) [#/Vol] 298 x10EE3/UL Normal 150 - 450 [facility] Comment on above: Performed By: #### 2 67216 #### [address] [address] RBC (Bld) [#/Vol] 4.40 x 10EE6/UL Low 4.50 - 6.00 [facility] Comment on above: Performed By: #### 2 53897 #### [address] [address] WBC (Bld) [#/Vol] 7.8 x 10EE3/UL Normal 4.5 - 10.8 [facility] Comment on above: Performed By: #### 2 05651 #### [place] [phone] CULTURE URINEon 02-04-2020 CULTURE URINE CULTURE URINE _URINE CULTURE_ M I C R O B I O L O G Y R E P O R T FINAL Antimicrobial Susceptibility and Organism Identification Report Specimen Number : [id number] Requested : 02/04/20 Specimen Source : URINE Collected : 02/04/20 02:50 [place] of Isolation : MEME HUANG Received : 02/04/20 02:50 Requesting Physician : FLORECITA ------ Patient/Specimen Tests and Comments Specimen Comments FINAL REPORT: NO GROWTH AT 48 HOURS ------ Tech : Source : URINE ID # : [id number] FINAL Report Date : / / : Collected : 02/04/20 02:50 02/06/20.1209.KLS. 02/05/20.0910.JLMoe. 02/06/20.9.KLS.[employer] PAIGE Johnson [facility] Comment on above: Performed By: #### 2 42471 #### [facility],[address] [place] [address] 68041 RENAL FUNCTION PANEL WITH eG FRon 02-04-2020 Age - Reported 54 years Normal [facility] Comment on above: Performed By: #### 2 62533 #### [facility],[address] [place] [address] 22860 Albumin [Mass/Vol] 3.5 g/dL Normal 3.4 - 4.8 [facility] Comment on above: Performed By: #### 2 24350 #### [facility],[address] [place] [address] 26550 B/C RATIO 9 ratio Normal 0 - 30 [facility] Comment on above: Performed By: #### 2 31179 #### [facility],[address] [place] [address] 32320 Calcium [Mass/Vol] 9.4 mg/dL Normal 8.6 - 10.2 [facility] Comment on above: Performed By: #### 2 82483 #### [facility],[address] [place] [address] 78093 Chloride [Moles/Vol] 107 mmol/L Normal 98 - 107 [facility] Comment on above: Performed By: #### 2 14717 #### [facility],[address] [place] [address] 09011 CO2 [Moles/Vol] 25.6 mmol/L Normal 21.0 - 31.0 [facility] Comment on above: Performed By: #### 2 77384 #### [facility],[address] [place] [address] 14877 Creatinine [Mass/Vol] 2.4 mg/dL High 0.7 - 1.3 [facility] Comment on above: Performed By: #### 2 51350 #### [facility],[address] [place] [address] 95145 GFR/1.73 sq M predicted among non-blacks MDRD (S/P/Bld) [Vol rate/Area] 28 ML/MINUTE Low 60 - 999 [facility] Comment on above: Performed By: #### 2 80530 #### [facility],[address] [place] [address] 14120 GFR/1.73 sq M predicted among non-blacks MDRD (S/P/Bld) [Vol rate/Area] 34 ML/MINUTE Low 60 - 999 [facility] Comment on above: Result Comment: ACCO RDING TO THE NATIONAL KIDNEY DISEASE EDUCATION PROGRAM(NKDE), A NORMAL eGFR IS A VALUE GREATER THAN OR EQUAL TO 60 ML/MIN/1.73 SQ METERS. CHRONIC KIDNEY DISEASE: <60mL/MIN/1.73 SQ METERS KIDNEY FAILURE: <15mL/MIN/1.73 SQ METERS THIS TEST SHOULD ONLY BE USED FOR PATIENTS 18 YEARS OF AGE AND OLDER. Performed By: #### 2 05781 #### [address] [address] Glucose [Mass/Vol] 114 mg/dL High 74 - 106 [facility] Comment on above: Performed By: #### 2 90663 #### [facility],[address] [place] [address] 46737 Phosphate [Mass/Vol] 4.5 mg/dL Normal 2.7 - 4.9 [facility] Comment on above: Performed By: #### 2 75724 #### [facility],[address] [place] [address] 38240 Potassium [Moles/Vol] 3.8 mmol/L Normal 3.5 - 5.1 [facility] Comment on above: Performed By: #### 2 68007 #### [facility],[address] [place] [address] 94433 RENAL FUNCTION PANEL WITH eGFR Normal [facility] Comment on above: Result Comment: JESSICA L FUNCTION PANEL Performed By: #### 2 75442 #### [facility],[address] [place] [address] 81741 Sodium [Moles/Vol] 139 mmol/L Normal 136 - 145 [facility] Comment on above: Performed By: #### 2 53754 #### [facility],[address] [place] [address] 04632 Urea nitrogen [Mass/Vol] 22 mg/dL High 6 - [facility] Comment on above: Performed By: #### 2 95399 #### [facility],[address] [place] [address] 13213 URINALYSISon 02-04-2020 Amorphous NONE Normal [facility] Comment on above: Performed By: #### 2 92520 #### [facility],[address] [place], [place] [phone] Bacteria LM.HPF (Urine sed) [#/Area] NONE Normal [facility] Comment on above: Performed By: #### 2 69920 #### [facility],[address] [place] [address] 47424 Bilirubin [Mass/Vol] Negative Normal NORMAL: NEGATIVE [facility] Comment on above: Performed By: #### 2 51039 #### [facility],[address] [place], [place] [phone] Blood Negative Normal NORMAL: NEGATIVE [facility] Comment on above: Performed By: #### 2 41434 #### [facility],[address] [place], [place] [phone] Casts LM.LPF (Urine sed) [#/Area] NONE Normal [facility] Comment on above: Performed By: #### 2 95968 #### [facility],[address] [place], [place] [phone] Clarity (U) clear Normal NORMAL: CLEAR [facility] Comment on above: Performed By: #### 2 04314 #### [facility],[address] [place], [place] [phone] Color (U) yellow Normal NORMAL: YELLOW [facility] Comment on above: Performed By: #### 2 80454 #### [facility],[address] [place] [address] 35954 Crystals LM Nom (Urine sed) NONE Normal [facility] Comment on above: Performed By: #### 2 04374 #### [facility],[address] [place] [address] 09988 Epi Cells NONE Normal [facility] Comment on above: Performed By: #### 2 40467 #### [facility],[address] [place] [address] 97344 Glucose [Mass/Vol] NORM Normal NORMAL: NORMAL [facility] Comment on above: Performed By: #### 2 09623 #### [facility],[address] [place] [address] 86405 Ketone Negative Normal NORMAL: NEGATIVE [facility] Comment on above: Performed By: #### 2 20613 #### [facility],[address] [place] [address] 92923 Microscopic SEE BELOW Normal [facility] Comment on above: Result Comment: MICR OSCOPIC Performed By: #### 2 80882 #### [facility],[address] [place] [address] 98555 Mucous NONE Normal [facility] Comment on above: Performed By: #### 2 44457 #### [facility],[address] [place] [address] 76844 Nitrite Ql (U) Negative Normal NORMAL: NEGATIVE [facility] Comment on above: Performed By: #### 2 39752 #### [facility],[address] [place] [address] 38241 pH (Bld) 6 Normal NORMAL: 5.0-8.0 [facility] Comment on above: Performed By: #### 2 70653 #### [facility],[address] [place] [address] 37704 Protein (U) [Mass/Vol] Negative Normal JENN L: NEGATIVE [facility] Comment on above: Performed By: #### 2 14204 #### [facility],[address] [place] [address] 34611 Rbc NONE Normal 0-3/hpf [facility] Comment on above: Performed By: #### 2 42086 #### [facility],[address] [place] [address] Sp [place] 1.015 Normal NORMAL: 1.010-1.030 [facility] Comment on above: Performed By: #### 2 17843 #### [facility],[address] [place] [address] Specimen type Nom (Spec) Clean catch Normal [facility] Comment on above: Performed By: #### 2 13941 #### [facility],[address] [place] [address] Urobilinog NORM Normal NORMAL: NORMAL [facility] Comment on above: Performed By: #### 2 89740 #### [facility],[address] [place] [address] Wbc 1-5 Normal 0-5/hpf [facility] Comment on above: Performed By: #### 2 10059 #### [facility],[address] [place] [address] WBC (Bld) [#/Vol] 25 Abnormal NORMAL: NEGATIVE [facility] Comment on above: Performed By: #### 2 64456 #### [facility],[address] [place], [place] [phone] Yeast LM Ql (Urine sed) NONE Normal [facility] Comment on above: Performed By: #### 2 54774 #### [facility],[address] [place], [place] [phone] URINE CREATININE AND PROTEIN RATIOon 02-04-2020 CREATININE UR 143.6 mg/dl Normal [facility] Comment on above: Performed By: #### 2 47597 #### [facility],[address] [place], [place] [phone] PC RATIO 0.05 mg/dL Normal 0.00 - 10.00 [facility] Comment on above: Performed By: #### 2 48243 #### [facility],[address] [place] [address] 17745 Protein (U) [Mass/Vol] 7.00 mg/dL Normal 0.00 - 10.00 [facility] Comment on above: Performed By: #### 2 20374 #### [facility],[address] [place] [address] 73344 ALBUMIN PLASMAon 01-07-2020 Albumin [Mass/Vol] 3.7 g/dL Normal 3.4 - 4.8 [facility] Comment on above: Performed By: #### 2 67571 #### [facility],[address] [place] [address] 08059 BMP with eGFRon 01-07-2020 Age - Reported 54 years Normal [facility] Comment on above: Performed By: #### 2 76248 #### [facility],[address] [place] [address] 37514 Anion gap [Moles/Vol] 13 mmol/L Normal 10 - 20 [facility] Comment on above: Performed By: #### 2 15958 #### [facility],[address] [place] [address] 83098 Calcium [Mass/Vol] 9.3 mg/dL Normal 8.6 - 10.2 [facility] Comment on above: Performed By: #### 2 60773 #### [facility],[address] [place] [address] 10345 Chloride [Moles/Vol] 108 mmol/L High 98 - 107 [facility] Comment on above: Performed By: #### 2 34168 #### [facility],[address] [place] [address] 09373 CO2 [Moles/Vol] 26.1 mmol/L Normal 21.0 - 31.0 [facility] Comment on above: Performed By: #### 2 32794 #### [facility],[address] [place] [address] 17252 Creatinine [Mass/Vol] 2.0 mg/dL High 0.7 - 1.3 [facility] Comment on above: Performed By: #### 2 91067 #### [facility],[address] [place] [address] 05998 GFR/1.73 sq M predicted among non-blacks MDRD (S/P/Bld) [Vol rate/Area] Normal [facility] Comment on above: Result Comment: BASI C METABOLIC PANEL Performed By: #### 2 10580 #### [facility],[address] [place] [address] 05534 GFR/1.73 sq M predicted among non-blacks MDRD (S/P/Bld) [Vol rate/Area] 42 ML/MINUTE Low 60 - 999 [facility] Comment on above: Result Comment: ACCO RDING TO THE NATIONAL KIDNEY DISEASE EDUCATION PROGRAM(NKDE), A NORMAL eGFR IS A VALUE GREATER THAN OR EQUAL TO 60 ML/MIN/1.73 SQ METERS. CHRONIC KIDNEY DISEASE: <60mL/MIN/1.73 SQ METERS KIDNEY FAILURE: <15mL/MIN/1.73 SQ METERS THIS TEST SHOULD ONLY BE USED FOR PATIENTS 18 YEARS OF AGE AND OLDER. Performed By: #### 2 25135 #### [facility],[address] [place] [address] 26895 GFR/1.73 sq M predicted among non-blacks MDRD (S/P/Bld) [Vol rate/Area] 35 ML/MINUTE Low 60 - 999 [facility] Comment on above: Performed By: #### 2 94245 #### [facility],[address] [place] [address] 04925 Glucose [Mass/Vol] 99 mg/dL Normal 74 - 106 [facility] Comment on above: Performed By: #### 2 79690 #### [facility],[address] [place] [address] 12756 Potassium [Moles/Vol] 3.8 mmol/L Normal 3.5 - 5.1 [facility] Comment on above: Performed By: #### 2 83682 #### [facility],[address] [place] [address] Sodium [Moles/Vol] 143 mmol/L Normal 136 - 145 [facility] Comment on above: Performed By: #### 2 60675 #### [facility],[address] [place] [address] Urea nitrogen [Mass/Vol] 22 mg/dL High 6 - 20 [facility] Comment on above: Performed By: #### 2 17910 #### [facility],[address] [place] [address] CBC + DIFFon 01-07-2020 Basophils (Bld) [#/Vol] 0.10 x10EE3/UL Normal 0.00 - 0 .10 [facility] Comment on above: Performed By: #### 2 80843 #### [facility],[address] [place] [address] 69302 Basophils/100 WBC (Bld) 1.0 % Normal 0.0 - 2.0 [facility] Comment on above: Performed By: #### 2 96494 #### [facility],[address] [place] [address] CBC + DIFF Normal [facility] Comment on above: Result Comment: CBC- COMPLETE BLOOD COUNT Performed By: #### 2 73662 #### [facility],[address] [place], [place] [phone] Eosinophils (Bld) [#/Vol] 0.30 x10EE3/UL Normal 0.00 - 0.50 [facility] Comment on above: Performed By: #### 2 48131 #### [facility],[address] [place] [address] 13823 Eosinophils/100 WBC (Bld) 3.3 % Normal 0.0 - 7.0 [facility] Comment on above: Performed By: #### 2 00084 #### [facility],[address],[place] [address] Erythrocyte distribution width (RBC) [Ratio] 13.1 % Normal 12.0 - 15.6 [facility] Comment on above: Performed By: #### 2 34568 #### [facility],[address] [place] [address] 54144 Hematocrit (Bld) [Volume fraction] 39.0 % Low 40.0 - 52.0 [facility] Comment on above: Performed By: #### 2 46704 #### [facility],[address] [place] [address] 81049 Hemoglobin (Bld) [Mass/Vol] 13.4 g/dL Normal 13.0 - 17.5 [facility] Comment on above: Performed By: #### 2 13790 #### [facility],[address] [place] [address] 57444 Lymphocytes (Bld) [#/Vol] 1.90 x10EE3/UL Normal 0.80 - 2.80 [facility] Comment on above: Performed By: #### 2 02159 #### [facility],[address] [place] [address] 08700 Lymphocytes/100 WBC (Bld) 20.6 % Normal 20.0 - 45. 0 [facility] Comment on above: Performed By: #### 2 61337 #### [facility],[address] [place] [address] 82367 MANUAL DIFF N/A Normal [facility] Comment on above: Performed By: #### 2 83101 #### [facility],[address] [place] [address] 75602 MCH (RBC) [Entitic mass] 30 pg Normal 27 - 33 [facility] Comment on above: Performed By: #### 2 04001 #### [facility],[address] [place] [address] 41405 MCHC (RBC) [Mass/Vol] 34 X10 3 Normal 32 - 36 [facility] Comment on above: Performed By: #### 2 17589 #### [facility],[address] [place] [address] 90865 MCV (RBC) [Entitic vol] 88 fL Normal 81 - 98 [facility] Comment on above: Performed By: #### 2 56944 #### [facility],[address] [place] [address] 66625 Monocytes (Bld) [#/Vol] 0.90 x10EE3/UL Normal 0.20 - 1 .00 [facility] Comment on above: Performed By: #### 2 60148 #### [address] [address] MONOS % 10.0 % Normal 0.0 - 10.0 [facility] Comment on above: Performed By: #### 2 63103 #### [place] [id number] Morphology Crispin (Bld) [Interp] N/A Normal [facility] Comment on above: Performed By: #### 2 57091 #### [address] [address] Neutrophils (Bld) [#/Vol] 5.90 x10EE3/UL Normal 1.50 - 7.10 [facility] Comment on above: Performed By: #### 2 57281 #### [place] [id number] Neutrophils/100 WBC (Bld) 65.1 % Normal 46.0 - 76. 0 [facility] Comment on above: Performed By: #### 2 77321 #### [place] [id number] Platelet mean volume (Bld) [Entitic vol] 7.7 fL Normal 6.4 - 10.5 [facility] Comment on above: Result Comment: AUTO MATED DIFFERENTIAL Performed By: #### 2 68535 #### [place] [id number] Platelets (Bld) [#/Vol] 260 x10EE3/UL Normal 150 - 450 [facility] Comment on above: Performed By: #### 2 39405 #### [facility],[address] [place] [address] 45231 RBC (Bld) [#/Vol] 4.41 x 10EE6/UL Low 4.50 - 6.00 J l [facility] Comment on above: Performed By: #### 2 53696 #### [facility],[address] [place] [address] 22289 WBC (Bld) [#/Vol] 9.1 x 10EE3/UL Normal 4.5 - 10.8 [facility] Comment on above: Performed By: #### 2 28847 #### [facility],[address] [place] [address] 18819 CULTURE URINEon 01-07-2020 CULTURE URINE CULTURE URINE _URINE CULTURE_ M I C R O B I O L O G Y R E P O R T FINAL Antimicrobial Susceptibility and Organism Identification Report Specimen Number : [id number] Requested : 01/07/20 Specimen Source : CLEAN CATCH URINE Collected : 01/07/20 02:30 Arredondo of Isolation : MEME HUANG Received : 01/07/20 02:30 Requesting Physician : FLORECITA ------ Patient/Specimen Tests and Comments Specimen Comments FINAL REPORT: NO GROWTH AT 48 HOURS ------ Tech : Source : CLEAN CATCH URINE ID # : [id number] FINAL Report Date : / / : Collected : 01/07/20 02:30 01/09/20.1027.BKO. 01/08/20.1302.KLS. 01/09/20.1027.AccountableO[employer] PLETE 01/09/20.1027.AccountableO.to [facility] Normal [facility] Comment on above: Performed By: #### 2 90311 #### [facility],[address] [place] [address] 32770 LITHIUMon 01-07-2020 [place] [Moles/Vol] 0.6 mmol/L Normal 0.6 - 1.2 [facility] Comment on above: Performed By: #### 2 70693 #### [facility],[address] [place] [address] 96187 URINALYSISon 01-07-2020 Bilirubin [Mass/Vol] Negative Normal NORMAL: NEGATIVE [facility] Comment on above: Performed By: #### 2 08196 #### [facility],[address] [place] [address] 18875 Blood Negative Normal NORMAL: NEGATIVE [facility] Comment on above: Performed By: #### 2 33153 #### [facility],[address] [place] [address] 63952 Clarity (U) clear Normal NORMAL: CLEAR [facility] Comment on above: Performed By: #### 2 92073 #### [facility],[address] [place] [address] 70234 Color (U) p.yel Normal NORMAL: YELLOW [facility] Comment on above: Performed By: #### 2 33718 #### [facility],[address] [place] [address] 27698 Glucose [Mass/Vol] NORM Normal NORMAL: NORMAL [facility] Comment on above: Performed By: #### 2 23639 #### [facility],[address] [place] [address] 85909 Ketone Negative Normal NORMAL: NEGATIVE [facility] Comment on above: Performed By: #### 2 22976 #### [facility],[address] [place] [address] 64532 Microscopic NOT INDICATED Normal [facility] Comment on above: Performed By: #### 2 41654 #### [facility],[address] [place] [address] 86390 Nitrite Ql (U) Negative Normal NORMAL: NEGATIVE [facility] Comment on above: Performed By: #### 2 93458 #### [facility],[address] [place] [address] 60899 pH (Bld) 6.5 Normal NORMAL: 5.0-8.0 [facility] Comment on above: Performed By: #### 2 75670 #### [facility],[address] [place] [address] 28600 Protein (U) [Mass/Vol] Negative Normal JENN L: NEGATIVE [facility] Comment on above: Performed By: #### 2 18616 #### [facility],[address] [place] [address] Sp [place] 1.010 Normal NORMAL: 1.010-1.030 [facility] Comment on above: Performed By: #### 2 81452 #### [facility],[address] [place] [address] Specimen type Nom (Spec) Clean catch Normal [facility] Comment on above: Performed By: #### 2 79484 #### [facility],[address] [place] [address] Urobilinog NORM Normal NORMAL: NORMAL [facility] Comment on above: Performed By: #### 2 85784 #### [facility],[address] [place] [address] WBC (Bld) [#/Vol] Negative Normal NORMAL: NEGATIVE [facility] Comment on above: Performed By: #### 2 69623 #### [place] [address] URINE CREATININE AND PROTEIN RATIOon 01-07-2020 CREATININE UR 75.6 mg/dl Normal [facility] Comment on above: Performed By: #### 2 66565 #### [facility],[address] [place], [place] [phone] PC RATIO 0.07 mg/dL Normal 0.00 - 10.00 [facility] Comment on above: Performed By: #### 2 74802 #### [address] [address] Protein (U) [Mass/Vol] mg/dL Normal 0.00 - 10.00 [facility] Comment on above: Performed By: #### 2 87491 #### [facility],[address] [place], [place] [phone] CBC + DIFFon 12-10-2019 Basophils (Bld) [#/Vol] 0.10 x10EE3/UL Normal 0.00 - 0 .10 [facility] Comment on above: Performed By: #### 2 18242 #### [facility],[address] [place] [address] 93382 Basophils/100 WBC (Bld) 0.7 % Normal 0.0 - 2.0 [facility] Comment on above: Performed By: #### 2 10982 #### [facility],[address] [place] [address] 46811 CBC + DIFF Normal [facility] Comment on above: Result Comment: CBC- COMPLETE BLOOD COUNT Performed By: #### 2 27135 #### [facility],[address] [place] [address] 37566 Eosinophils (Bld) [#/Vol] 0.30 x10EE3/UL Normal 0.00 - 0.50 [facility] Comment on above: Performed By: #### 2 85166 #### [facility],[address] [place] [address] 58920 Eosinophils/100 WBC (Bld) 3.2 % Normal 0.0 - 7.0 [facility] Comment on above: Performed By: #### 2 68091 #### [facility],[address] [place] [address] 50447 Erythrocyte distribution width (RBC) [Ratio] 12.7 % Normal 12.0 - 15.6 [facility] Comment on above: Performed By: #### 2 52887 #### [facility],[address] [place] [address] 84036 Hematocrit (Bld) [Volume fraction] 38.7 % Low 40.0 - 52.0 [facility] Comment on above: Performed By: #### 2 78232 #### [facility],[address] [place] [address] 15319 Hemoglobin (Bld) [Mass/Vol] 13.4 g/dL Normal 13.0 - 17.5 [facility] Comment on above: Performed By: #### 2 77095 #### [facility],[address] [place] [address] Lymphocytes (Bld) [#/Vol] 2.10 x10EE3/UL Normal 0.80 - 2.80 [facility] Comment on above: Performed By: #### 2 54052 #### [facility],[address] [place], [place] [phone] Lymphocytes/100 WBC (Bld) 21.3 % Normal 20.0 - 45. 0 [facility] Comment on above: Performed By: #### 2 31251 #### [facility],[address] [place] [address] MANUAL DIFF N/A Normal [facility] Comment on above: Performed By: #### 2 63159 #### [place] [phone] MCH (RBC) [Entitic mass] 31 pg Normal 27 - 33 [facility] Comment on above: Performed By: #### 2 90583 #### [place] [phone] MCHC (RBC) [Mass/Vol] 35 X10 3 Normal 32 - 36 [facility] Comment on above: Performed By: #### 2 92482 #### [facility],[address] [place] [address] MCV (RBC) [Entitic vol] 89 fL Normal 81 - 98 [facility] Comment on above: Performed By: #### 2 46572 #### [place] [phone] Monocytes (Bld) [#/Vol] 1.00 x10EE3/UL Normal 0.20 - 1 .00 [facility] Comment on above: Performed By: #### 2 18655 #### [facility],[address] [place] [address] 23174 MONOS % 10.5 % High 0.0 - 10.0 [facility] Comment on above: Performed By: #### 2 91807 #### [facility],[address] [place] [address] 08451 Morphology Crispin (Bld) [Interp] N/A Normal [facility] Comment on above: Performed By: #### 2 77183 #### [address] [address] Neutrophils (Bld) [#/Vol] 6.30 x10EE3/UL Normal 1.50 - 7.10 [facility] Comment on above: Performed By: #### 2 01748 #### [address] [address] Neutrophils/100 WBC (Bld) 64.3 % Normal 46.0 - 76. 0 [facility] Comment on above: Performed By: #### 2 09842 #### [address] [address] Platelet mean volume (Bld) [Entitic vol] 7.4 fL Normal 6.4 - 10.5 [facility] Comment on above: Result Comment: AUTO MATED DIFFERENTIAL Performed By: #### 2 68515 #### [address] [address] Platelets (Bld) [#/Vol] 254 x10EE3/UL Normal 150 - 450 [facility] Comment on above: Performed By: #### 2 93622 #### [address] [address] RBC (Bld) [#/Vol] 4.34 x 10EE6/UL Low 4.50 - 6.00 [facility] Comment on above: Performed By: #### 2 45108 #### [address] [address] WBC (Bld) [#/Vol] 9.8 x 10EE3/UL Normal 4.5 - 10.8 Gerald gregg [facility] Comment on above: Performed By: #### 2 22238 #### [facility],[address] [place] [address] 68596 CULTURE URINEon 12-10-2019 CULTURE URINE CULTURE URINE _URINE CULTURE_ M I C R O B I O L O G Y R E P O R T FINAL Antimicrobial Susceptibility and Organism Identification Report Specimen Number : [id number] Requested : 12/09/19 Specimen Source : CLEAN CATCH URINE Collected : 12/09/19 23:45 Arredondo of Isolation : MEME HUANG Received : 12/09/19 23:45 Requesting Physician : FLORECITA ------ Patient/Specimen Tests and Comments Specimen Comments FINAL REPORT: NO GROWTH AT 48 HOURS ------ Tech : Source : CLEAN CATCH URINE ID # : [id number] FINAL Report Date : / / : Collected : 12/09/19 23:45 12/12/19.BKO. 12/11/19.BKO. 12/12/19.[employer] PLETE 12/12/19.BKO.to [facility] fax Normal [facility] Comment on above: Performed By: #### 2 34114 #### [facility],[address] [place], [place] [phone] LITHIUMon 12-10-2019 [place] [Moles/Vol] 0.6 mmol/L Normal 0.6 - 1.2 [facility] Comment on above: Performed By: #### 2 94199 #### [facility],[address] [place] [address] 83915 RENAL FUNCTION PANEL WITH eG FRon 12-10-2019 Age - Reported 54 years Normal [facility] Comment on above: Performed By: #### 2 60523 #### [facility],[address] [place] [address] 02934 Albumin [Mass/Vol] 3.6 g/dL Normal 3.4 - 4.8 [facility] Comment on above: Performed By: #### 2 23784 #### [facility],[address] [place] [address] 92891 B/C RATIO 12 ratio Normal 0 - 30 [facility] Comment on above: Performed By: #### 2 93375 #### [facility],[address] [place] [address] 90125 Calcium [Mass/Vol] 9.4 mg/dL Normal 8.6 - 10.2 [facility] Comment on above: Performed By: #### 2 82412 #### [facility],[address] [place] [address] 48392 Chloride [Moles/Vol] 105 mmol/L Normal 98 - 107 [facility] Comment on above: Performed By: #### 2 07070 #### [facility],[address] [place] [address] 86530 CO2 [Moles/Vol] 24.4 mmol/L Normal 21.0 - 31.0 [facility] Comment on above: Performed By: #### 2 87914 #### [facility],[address] [place] [address] 24967 Creatinine [Mass/Vol] 1.9 mg/dL High 0.7 - 1.3 [facility] Comment on above: Performed By: #### 2 56946 #### [facility],[address] [place] [address] 35917 GFR/1.73 sq M predicted among non-blacks MDRD (S/P/Bld) [Vol rate/Area] 37 ML/MINUTE Low 60 - 999 [facility] Comment on above: Performed By: #### 2 56006 #### [facility],[address] [place] [address] 84149 GFR/1.73 sq M predicted among non-blacks MDRD (S/P/Bld) [Vol rate/Area] 45 ML/MINUTE Low 60 - 999 [facility] Comment on above: Result Comment: ACCO RDING TO THE NATIONAL KIDNEY DISEASE EDUCATION PROGRAM(NKDE), A NORMAL eGFR IS A VALUE GREATER THAN OR EQUAL TO 60 ML/MIN/1.73 SQ METERS. CHRONIC KIDNEY DISEASE: <60mL/MIN/1.73 SQ METERS KIDNEY FAILURE: <15mL/MIN/1.73 SQ METERS THIS TEST SHOULD ONLY BE USED FOR PATIENTS 18 YEARS OF AGE AND OLDER. Performed By: #### 2 49502 #### [facility],[address] [place] [address] 63265 Glucose [Mass/Vol] 106 mg/dL Normal 74 - 106 [facility] Comment on above: Performed By: #### 2 85112 #### [facility],[address] [place] [address] 83282 Phosphate [Mass/Vol] 5.0 mg/dL High 2.7 - 4.9 [facility] Comment on above: Performed By: #### 2 94397 #### [facility],[address] [place] [address] 07461 Potassium [Moles/Vol] 3.4 mmol/L Low 3.5 - 5.1 [facility] Comment on above: Performed By: #### 2 63476 #### [facility],[address] [place] [address] 70472 RENAL FUNCTION PANEL WITH eGFR Normal [facility] Comment on above: Result Comment: JESSICA L FUNCTION PANEL Performed By: #### 2 00994 #### [facility],[address] [place] [address] 53459 Sodium [Moles/Vol] 139 mmol/L Normal 136 - 145 [facility] Comment on above: Performed By: #### 2 66299 #### [facility],[address] [place] [address] 17689 Urea nitrogen [Mass/Vol] 23 mg/dL High 6 - 20 [facility] Comment on above: Performed By: #### 2 57812 #### [facility],[address] [place] [address] 31334 URINALYSISon 12-10-2019 Bilirubin [Mass/Vol] Negative Normal NORMAL: NEGATIVE [facility] Comment on above: Performed By: #### 2 40663 #### [facility],[address] [place] [address] 14736 Blood Negative Normal NORMAL: NEGATIVE [facility] Comment on above: Performed By: #### 2 59905 #### [facility],[address] [place] [address] 36703 Clarity (U) clear Normal NORMAL: CLEAR [facility] Comment on above: Performed By: #### 2 93045 #### [facility],[address] [place] [address] 32160 Color (U) p.yel Normal NORMAL: YELLOW [facility] Comment on above: Performed By: #### 2 30761 #### [facility],[address] [place] [address] 05037 Glucose [Mass/Vol] NORM Normal NORMAL: NORMAL [facility] Comment on above: Performed By: #### 2 09634 #### [facility],[address] [place] [address] 50298 Ketone Negative Normal NORMAL: NEGATIVE [facility] Comment on above: Performed By: #### 2 37749 #### [facility],[address] [place] [address] Microscopic NOT INDICATED Normal [facility] Comment on above: Performed By: #### 2 13365 #### [facility],[address] [place] [address] 92938 Nitrite Ql (U) Negative Normal NORMAL: NEGATIVE [facility] Comment on above: Performed By: #### 2 31511 #### [facility],[address] [place] [address] 39169 pH (Bld) 6 Normal NORMAL: 5.0-8.0 [facility] Comment on above: Performed By: #### 2 51877 #### [facility],[address] [place] [address] 84555 Protein (U) [Mass/Vol] Negative Normal JENN L: NEGATIVE [facility] Comment on above: Performed By: #### 2 60305 #### [facility],[address] [place] [address] 50236 Sp [place] 1.015 Normal NORMAL: 1.010-1.030 [facility] Comment on above: Performed By: #### 2 39124 #### [facility],[address] [place] [address] 06708 Specimen type Nom (Spec) Clean catch Normal [facility] Comment on above: Performed By: #### 2 34855 #### [facility],[address] [place] [address] 09233 Urobilinog NORM Normal NORMAL: NORMAL [facility] Comment on above: Performed By: #### 2 37701 #### [facility],[address] [place] [address] 80697 WBC (Bld) [#/Vol] Negative Normal NORMAL: NEGATIVE [facility] Comment on above: Performed By: #### 2 51645 #### [facility],[address] [place] [address] 93626 URINE CREATININE AND PROTEIN RATIOon 12-10-2019 CREATININE UR 97.1 mg/dl Normal [facility] Comment on above: Performed By: #### 2 32205 #### [facility],[address] [place] [address] 22408 PC RATIO 0.07 mg/dL Normal 0.00 - 10.00 [facility] Comment on above: Performed By: #### 2 85888 #### [facility],[address] [place] [address] 57285 Protein (U) [Mass/Vol] 7.00 mg/dL Normal 0.00 - 10.00 [facility] Comment on above: Performed By: #### 2 34159 #### [facility],[address] [place] [address] 31736 BMP with eGFRon 11-05-2019 Age - Reported 54 years Normal [facility] Comment on above: Performed By: #### 2 85163 #### [facility],[address] [place] [address] 08979 Anion gap [Moles/Vol] 12 mmol/L Normal 10 - 20 [facility] Comment on above: Performed By: #### 2 01209 #### [facility],[address] [place] [address] 32574 Chloride [Moles/Vol] 105 mmol/L Normal 98 - 107 [facility] Comment on above: Performed By: #### 2 37164 #### [facility],[address] [place] [address] 86070 CO2 [Moles/Vol] 26.8 mmol/L Normal 21.0 - 31.0 [facility] Comment on above: Performed By: #### 2 59269 #### [facility],[address] [place] [address] 67798 GFR/1.73 sq M predicted among non-blacks MDRD (S/P/Bld) [Vol rate/Area] 38 ML/MINUTE Low 60 - 999 [facility] Comment on above: Result Comment: ACCO RDING TO THE NATIONAL KIDNEY DISEASE EDUCATION PROGRAM(NKDE), A NORMAL eGFR IS A VALUE GREATER THAN OR EQUAL TO 60 ML/MIN/1.73 SQ METERS. CHRONIC KIDNEY DISEASE: <60mL/MIN/1.73 SQ METERS KIDNEY FAILURE: <15mL/MIN/1.73 SQ METERS THIS TEST SHOULD ONLY BE USED FOR PATIENTS 18 YEARS OF AGE AND OLDER. Performed By: #### 2 18710 #### [facility],[address] [place] [address] 42504 GFR/1.73 sq M predicted among non-blacks MDRD (S/P/Bld) [Vol rate/Area] 31 ML/MINUTE Low 60 - 999 [facility] Comment on above: Performed By: #### 2 94402 #### [facility],[address] [place] [address] 67773 GFR/1.73 sq M predicted among non-blacks MDRD (S/P/Bld) [Vol rate/Area] Normal [facility] Comment on above: Result Comment: BASI C METABOLIC PANEL Performed By: #### 2 63709 #### [facility],[address] [place], [place] [phone] Potassium [Moles/Vol] 3.4 mmol/L Low 3.5 - 5.1 [facility] Comment on above: Performed By: #### 2 51281 #### [facility],[address] [place] [address] Sodium [Moles/Vol] 140 mmol/L Normal 136 - 145 [facility] Comment on above: Performed By: #### 2 40157 #### [facility],[address] [place], [place] [phone] CBC + DIFFon 11-05-2019 Basophils (Bld) [#/Vol] 0.10 x10EE3/UL Normal 0.00 - 0 .10 [facility] Comment on above: Performed By: #### 2 69779 #### [facility],[address] [place] [address] 74076 Basophils/100 WBC (Bld) 0.9 % Normal 0.0 - 2.0 [facility] Comment on above: Performed By: #### 2 87907 #### [facility],[address] [place] [address] CBC + DIFF Normal [facility] Comment on above: Result Comment: CBC- COMPLETE BLOOD COUNT Performed By: #### 2 07377 #### [facility],[address] [place] [address] 51067 Eosinophils (Bld) [#/Vol] 0.40 x10EE3/UL Normal 0.00 - 0.50 [facility] Comment on above: Performed By: #### 2 63653 #### [facility],[address] [place] [address] 42439 Eosinophils/100 WBC (Bld) 3.9 % Normal 0.0 - 7.0 [facility] Comment on above: Performed By: #### 2 70569 #### [facility],[address] [place], [place] [phone] Erythrocyte distribution width (RBC) [Ratio] 12.4 % Normal 12.0 - 15.6 [facility] Comment on above: Performed By: #### 2 13028 #### [facility],[address] [place] [address] 23637 Hematocrit (Bld) [Volume fraction] 39.9 % Low 40.0 - 52.0 [facility] Comment on above: Performed By: #### 2 54768 #### [facility],[address] [place] [address] 37431 Hemoglobin (Bld) [Mass/Vol] 13.3 g/dL Normal 13.0 - 17.5 [facility] Comment on above: Performed By: #### 2 13791 #### [facility],[address] [place] [address] 86769 Lymphocytes (Bld) [#/Vol] 1.90 x10EE3/UL Normal 0.80 - 2.80 [facility] Comment on above: Performed By: #### 2 80878 #### [facility],[address] [place] [address] 80750 Lymphocytes/100 WBC (Bld) 20.3 % Normal 20.0 - 45. 0 [facility] Comment on above: Performed By: #### 2 76220 #### [facility],[address] [place] [address] 38858 MANUAL DIFF N/A Normal [facility] Comment on above: Performed By: #### 2 72259 #### [facility],[address] [place] [address] 99478 MCH (RBC) [Entitic mass] 30 pg Normal 27 - 33 [facility] Comment on above: Performed By: #### 2 02954 #### [facility],[address] [place] [address] 13338 MCHC (RBC) [Mass/Vol] 33 X10 3 Normal 32 - 36 [facility] Comment on above: Performed By: #### 2 20278 #### [facility],[address] [place] [address] 55380 MCV (RBC) [Entitic vol] 91 fL Normal 81 - 98 [facility] Comment on above: Performed By: #### 2 07563 #### [facility],[address] [place] [address] 93044 Monocytes (Bld) [#/Vol] 1.00 x10EE3/UL Normal 0.20 - 1 .00 [facility] Comment on above: Performed By: #### 2 91402 #### [facility],[address] [place] [address] 23765 MONOS % 10.5 % High 0.0 - 10.0 [facility] Comment on above: Performed By: #### 2 31344 #### [facility],[address] [place] [address] 69819 Morphology Crispin (Bld) [Interp] N/A Normal [facility] Comment on above: Performed By: #### 2 73521 #### [facility] [facility],[address] [place] [address] 33286 Neutrophils (Bld) [#/Vol] 6.10 x10EE3/UL Normal 1.50 - 7.10 [facility] Comment on above: Performed By: #### 2 40210 #### [facility],[address] [place] [address] 81901 Neutrophils/100 WBC (Bld) 64.4 % Normal 46.0 - 76. 0 [facility] Comment on above: Performed By: #### 2 28635 #### [facility],[address] [place] [address] 05480 Platelet mean volume (Bld) [Entitic vol] 7.4 fL Normal 6.4 - 10.5 [facility] Comment on above: Result Comment: AUTO MATED DIFFERENTIAL Performed By: #### 2 24415 #### [facility],[address] [place] [address] 23063 Platelets (Bld) [#/Vol] 260 x10EE3/UL Normal 150 - 450 [facility] Comment on above: Performed By: #### 2 12162 #### [facility],[address] [place], [place] [id number] RBC (Bld) [#/Vol] 4.38 x 10EE6/UL Low 4.50 - 6.00 [facility] Comment on above: Performed By: #### 2 84077 #### [facility],[address] [place] [address] 18807 WBC (Bld) [#/Vol] 9.4 x 10EE3/UL Normal 4.5 - 10.8 [facility] Comment on above: Performed By: #### 2 72237 #### [facility],[address] [place], [place] [phone] LITHIUMon 11-05-2019 [place] [Moles/Vol] 0.5 mmol/L Low 0.6 - 1.2 [facility] Comment on above: Performed By: #### 2 07952 #### [facility],[address] [place], [place] [phone] RENAL FUNCTION PANELon 11-05 Albumin [Mass/Vol] 3.5 g/dL Normal 3.4 - 4.8 [facility] Comment on above: Performed By: #### 2 97527 #### [facility],[address] [place], [place] [phone] B/C RATIO 9 ratio Normal 0 - 30 [facility] Comment on above: Performed By: #### 2 06296 #### [facility],[address] [place] [address] 15439 Calcium [Mass/Vol] 9.4 mg/dL Normal 8.6 - 10.2 [facility] Comment on above: Performed By: #### 2 49673 #### [facility],[address] [place], [place] [phone] Creatinine [Mass/Vol] 2.2 mg/dL High 0.7 - 1.3 [facility] Comment on above: Performed By: #### 2 20065 #### [facility],[address] [place] [address] Glucose [Mass/Vol] 105 mg/dL Normal 74 - 106 [facility] Comment on above: Performed By: #### 2 22964 #### [facility],[address] [place] [address] Phosphate [Mass/Vol] 4.3 mg/dL Normal 2.7 - 4.9 [facility] Comment on above: Performed By: #### 2 51470 #### [facility],[address] [place] [address] RENAL FUNCTION PANEL Normal [facility] Comment on above: Result Comment: JESSICA L FUNCTION PANEL Performed By: #### 2 52385 #### [facility],[address] [place] [address] Urea nitrogen [Mass/Vol] 20 mg/dL Normal 6 - 20 [facility] Comment on above: Performed By: #### 2 15440 #### [facility],[address] [place] [address] URINALYSISon 11-05-2019 Bilirubin [Mass/Vol] Negative Normal NORMAL: NEGATIVE [facility] Comment on above: Performed By: #### 2 86198 #### [facility],[address] [place] [address] Blood Negative Normal NORMAL: NEGATIVE [facility] Comment on above: Performed By: #### 2 88145 #### [facility],[address] [place] [address] Clarity (U) clear Normal NORMAL: CLEAR [facility] Comment on above: Performed By: #### 2 78357 #### [facility],[address] [place] [address] Color (U) p.yel Normal NORMAL: YELLOW [facility] Comment on above: Performed By: #### 2 49610 #### [facility],[address] [place] [address] 03828 Glucose [Mass/Vol] NORM Normal NORMAL: NORMAL [facility] Comment on above: Performed By: #### 2 13196 #### [facility],[address] [place], [place] [phone] Ketone Negative Normal NORMAL: NEGATIVE [facility] Comment on above: Performed By: #### 2 96593 #### [facility],[address] [place] [address] Microscopic NOT INDICATED Normal [facility] Comment on above: Performed By: #### 2 45405 #### [facility],[address] [place], [place] [phone] Nitrite Ql (U) Negative Normal NORMAL: NEGATIVE [facility] Comment on above: Performed By: #### 2 38203 #### [facility],[address] [place], [place] [phone] pH (Bld) 6.5 Normal NORMAL: 5.0-8.0 [facility] Comment on above: Performed By: #### 2 76850 #### [facility],[address] [place], [place] [phone] Protein (U) [Mass/Vol] Negative Normal JENN L: NEGATIVE [facility] Comment on above: Performed By: #### 2 74917 #### [facility],[address] [place], [place] [id number] Sp [place] 1.010 Normal NORMAL: 1.010-1.030 [facility] Comment on above: Performed By: #### 2 86480 #### [facility],[address] [place], [place] [phone] Specimen type Nom (Spec) UNSPECIFIED Normal [facility] Comment on above: Performed By: #### 2 42339 #### [facility],[address] [place] [address] Urobilinog NORM Normal NORMAL: NORMAL [facility] Comment on above: Performed By: #### 2 84616 #### [facility],[address] [place], [place] [phone] WBC (Bld) [#/Vol] Negative Normal NORMAL: NEGATIVE [facility] Comment on above: Performed By: #### 2 59066 #### [facility],[address] [place] [address] URINE CREATININE AND PROTEIN RATIOon 11-05-2019 CREATININE UR 72.6 mg/dl Normal [facility] Comment on above: Performed By: #### 2 37048 #### [facility],[address] [place] [address] PC RATIO 0.07 mg/dL Normal 0.00 - 10.00 [facility] Comment on above: Performed By: #### 2 65814 #### [facility],[address] [place], [place] [phone] Protein (U) [Mass/Vol] mg/dL Normal 0.00 - 10.00 [facility] Comment on above: Performed By: #### 2 71246 #### [facility],[address] [place] [address] BMP with eGFRon 10-08-2019 Age - Reported 54 years Normal [facility] Comment on above: Performed By: #### 2 05662 #### [facility],[address] [place] [address] 56664 Anion gap [Moles/Vol] 12 mmol/L Normal 10 - 20 [facility] Comment on above: Performed By: #### 2 97164 #### [facility],[address] [place] [address] 92947 Calcium [Mass/Vol] 9.2 mg/dL Normal 8.6 - 10.2 [facility] Comment on above: Performed By: #### 2 71634 #### [facility],[address] [place] [address] 35204 Chloride [Moles/Vol] 107 mmol/L Normal 98 - 107 [facility] Comment on above: Performed By: #### 2 19230 #### [facility],[address] [place] [address] 38155 CO2 [Moles/Vol] 26.7 mmol/L Normal 21.0 - 31.0 [facility] Comment on above: Performed By: #### 2 18562 #### [facility],[address] [place] [address] 81080 Creatinine [Mass/Vol] 2.1 mg/dL High 0.7 - 1.3 [facility] Comment on above: Performed By: #### 2 75388 #### [facility],[address] [place] [address] 30207 GFR/1.73 sq M predicted among non-blacks MDRD (S/P/Bld) [Vol rate/Area] Normal [facility] Comment on above: Result Comment: BASI C METABOLIC PANEL Performed By: #### 2 52969 #### [facility],[address] [place] [address] 35411 GFR/1.73 sq M predicted among non-blacks MDRD (S/P/Bld) [Vol rate/Area] 40 ML/MINUTE Low 60 - 999 [facility] Comment on above: Result Comment: ACCO RDING TO THE NATIONAL KIDNEY DISEASE EDUCATION PROGRAM(NKDE), A NORMAL eGFR IS A VALUE GREATER THAN OR EQUAL TO 60 ML/MIN/1.73 SQ METERS. CHRONIC KIDNEY DISEASE: <60mL/MIN/1.73 SQ METERS KIDNEY FAILURE: <15mL/MIN/1.73 SQ METERS THIS TEST SHOULD ONLY BE USED FOR PATIENTS 18 YEARS OF AGE AND OLDER. Performed By: #### 2 29806 #### [facility],[address] [place] [address] 35547 GFR/1.73 sq M predicted among non-blacks MDRD (S/P/Bld) [Vol rate/Area] 33 ML/MINUTE Low 60 - 999 [facility] Comment on above: Performed By: #### 2 26695 #### [facility],[address] [place] [address] 02285 Glucose [Mass/Vol] 106 mg/dL Normal 74 - 106 [facility] Comment on above: Performed By: #### 2 17927 #### [facility],[address] [place] [address] 01888 Potassium [Moles/Vol] 3.6 mmol/L Normal 3.5 - 5.1 [facility] Comment on above: Performed By: #### 2 01520 #### [facility],[address] [place] [address] 96607 Sodium [Moles/Vol] 142 mmol/L Normal 136 - 145 [facility] Comment on above: Performed By: #### 2 97130 #### [place] [address] Urea nitrogen [Mass/Vol] 22 mg/dL High 6 - 20 [facility] Comment on above: Performed By: #### 2 98884 #### [facility],[address] [place] [address] 36689 CBC + DIFFon 10-08-2019 Basophils (Bld) [#/Vol] 0.10 x10EE3/UL Normal 0.00 - 0 .10 [facility] Comment on above: Performed By: #### 2 28653 #### [facility],[address] [place] [address] 79050 Basophils/100 WBC (Bld) 0.7 % Normal 0.0 - 2.0 [facility] Comment on above: Performed By: #### 2 41148 #### [address] [address] CBC + DIFF Normal [facility] Comment on above: Result Comment: CBC- COMPLETE BLOOD COUNT Performed By: #### 2 66037 #### [facility] [place] [address] 72095 Eosinophils (Bld) [#/Vol] 0.50 x10EE3/UL Normal 0.00 - 0.50 [facility] Comment on above: Performed By: #### 2 25620 #### [facility],[address] [place], [place] [phone] Eosinophils/100 WBC (Bld) 5.1 % Normal 0.0 - 7.0 [facility] Comment on above: Performed By: #### 2 79190 #### [facility],[address] [place] [address] Erythrocyte distribution width (RBC) [Ratio] 12.8 % Normal 12.0 - 15.6 [facility] Comment on above: Performed By: #### 2 16188 #### [facility],[address] [place] [address] Hematocrit (Bld) [Volume fraction] 37.6 % Low 40.0 - 52.0 [facility] Comment on above: Performed By: #### 2 40127 #### [facility],[address] [place] [address] 93008 Hemoglobin (Bld) [Mass/Vol] 12.5 g/dL Low 13.0 - 17.5 [facility] Comment on above: Performed By: #### 2 50273 #### [facility],[address] [place] [address] 24996 Lymphocytes (Bld) [#/Vol] 1.90 x10EE3/UL Normal 0.80 - 2.80 [facility] Comment on above: Performed By: #### 2 81165 #### [address] [address] Lymphocytes/100 WBC (Bld) 18.6 % Low 20.0 - 45. 0 [facility] Comment on above: Performed By: #### 2 97723 #### [facility],[address] [place], [place] [phone] MANUAL DIFF N/A Normal [facility] Comment on above: Performed By: #### 2 77195 #### [facility],[address] [place], [place] [phone] MCH (RBC) [Entitic mass] 31 pg Normal 27 - 33 [facility] Comment on above: Performed By: #### 2 44011 #### [facility],[address] [place] [address] MCHC (RBC) [Mass/Vol] 33 X10 3 Normal 32 - 36 [facility] Comment on above: Performed By: #### 2 24725 #### [facility],[address] [place], [place] [phone] MCV (RBC) [Entitic vol] 93 fL Normal 81 - 98 [facility] Comment on above: Performed By: #### 2 88664 #### [facility],[address] [place], [place] [phone] Monocytes (Bld) [#/Vol] 1.00 x10EE3/UL Normal 0.20 - 1 .00 [facility] Comment on above: Performed By: #### 2 64499 #### [facility],[address] [place] [address] 24982 MONOS % 9.4 % Normal 0.0 - 10.0 [facility] Comment on above: Performed By: #### 2 65830 #### [facility],[address] [place] [address] 12684 Morphology Cris[place] (Bld) [Interp] N/A Normal [facility] Comment on above: Performed By: #### 2 72498 #### [facility],[address] [place], [place] [phone] Neutrophils (Bld) [#/Vol] 6.90 x10EE3/UL Normal 1.50 - 7.10 [facility] Comment on above: Performed By: #### 2 48094 #### [address] [address] Neutrophils/100 WBC (Bld) 66.2 % Normal 46.0 - 76. 0 [facility] Comment on above: Performed By: #### 2 29125 #### [facility],[address] [place] [address] Platelet mean volume (Bld) [Entitic vol] 7.7 fL Normal 6.4 - 10.5 [facility] Comment on above: Result Comment: AUTO MATED DIFFERENTIAL Performed By: #### 2 10717 #### [address] [address] Platelets (Bld) [#/Vol] 250 x10EE3/UL Normal 150 - 450 [facility] Comment on above: Performed By: #### 2 74917 #### [address] [address] RBC (Bld) [#/Vol] 4.07 x 10EE6/UL Low 4.50 - 6.00 [facility] Comment on above: Performed By: #### 2 21529 #### [address] [address] WBC (Bld) [#/Vol] 10.4 x 10EE3/UL Normal 4.5 - 10.8 [facility] Comment on above: Performed By: #### 2 83440 #### [address] [address] CULTURE URINEon 10-08-2019 CULTURE URINE CULTURE URINE _URINE CULTURE_ M I C R O B I O L O G Y R E P O R T FINAL Antimicrobial Susceptibility and Organism Identification Report Specimen Number : [id number] Requested : 10/08/19 Specimen Source : URINE Collected : 10/08/19 08:30 [place] of Isolation : MEME HUANG Received : 10/08/19 08:30 Requesting Physician : FLORECITA ------ Patient/Specimen Tests and Comments Specimen Comments FINAL REPORT: NO GROWTH AT 48 HOURS ------ Tech : Source : URINE ID # : [id number] FINAL Report Date : / / : Collected : 10/08/19 08:30 10/10/19.1115.BKO. 10/09/19.1011.BKO. 10/10/19.1115.BKO.[employer] PAIGE [facility] Comment on above: Performed By: #### 2 66618 #### [facility],[address] [place] [address] 84773 HEPATIC FUNCTION PANELon ALK PHOS 52 U/L Normal 38 - 126 [facility] Comment on above: Performed By: #### 2 44695 #### [facility],[address] [place] [address] 05644 ALT/SGPT 15 U/L Normal 10 - 40 [facility] Comment on above: Performed By: #### 2 37435 #### [facility],[address] [place] [address] 35464 AST/SGOT 9 U/L Low 13 - 39 [facility] Comment on above: Performed By: #### 2 92608 #### [facility],[address] [place] [address] 46993 Bilirubin [Mass/Vol] 0.3 mg/dL Normal 0.0 - 1.5 [facility] Comment on above: Performed By: #### 2 30718 #### [facility],[address] [place] [address] 13893 Bilirubin.direct [Mass/Vol] 0.1 mg/dL Normal 0.0 - 0.1 [facility] Comment on above: Performed By: #### 2 91854 #### [facility],[address] [place] [address] 44637 HEPATIC FUNCTION PANEL Normal [facility] Comment on above: Result Comment: HEPA TIC FUNCTION PROFILE Performed By: #### 2 07717 #### [facility],[address] [place] [address] 61562 Protein [Mass/Vol] 5.5 g/dL Low 6.4 - 8.3 [facility] Comment on above: Performed By: #### 2 41232 #### [facility],[address] [place] [address] 16179 LITHIUMon 10-08-2019 [place] [Moles/Vol] 0.6 mmol/L Normal 0.6 - 1.2 [facility] Comment on above: Performed By: #### 2 03222 #### [facility],[address] [place] [address] 91867 RENAL FUNCTION PANELon 10-08 Albumin [Mass/Vol] 3.5 g/dL Normal 3.4 - 4.8 [facility] Comment on above: Performed By: #### 2 50479 #### [facility],[address] [place] [address] 21720 B/C RATIO 10 ratio Normal 0 - 30 [facility] Comment on above: Performed By: #### 2 98823 #### [facility],[address] [place] [address] 24630 Calcium [Mass/Vol] 9.2 mg/dL Normal 8.6 - 10.2 [facility] Comment on above: Performed By: #### 2 20225 #### [facility],[address] [place] [address] 26866 Chloride [Moles/Vol] 107 mmol/L Normal 98 - 107 [facility] Comment on above: Performed By: #### 2 38539 #### [facility],[address] [place] [address] 73476 CO2 [Moles/Vol] 26.7 mmol/L Normal 21.0 - 31.0 [facility] Comment on above: Performed By: #### 2 89473 #### [facility],[address] [place] [address] 75890 Creatinine [Mass/Vol] 2.1 mg/dL High 0.7 - 1.3 [facility] Comment on above: Performed By: #### 2 28017 #### [facility],[address] [place] [address] 18262 Glucose [Mass/Vol] 106 mg/dL Normal 74 - 106 [facility] Comment on above: Performed By: #### 2 80658 #### [facility],[address] [place] [address] 29535 Phosphate [Mass/Vol] 4.7 mg/dL Normal 2.7 - 4.9 [facility] Comment on above: Performed By: #### 2 95842 #### [facility],[address] [place] [address] 57278 Potassium [Moles/Vol] 3.6 mmol/L Normal 3.5 - 5.1 [facility] Comment on above: Performed By: #### 2 01845 #### [facility],[address] [place] [address] 55381 RENAL FUNCTION PANEL Normal [facility] Comment on above: Result Comment: JESSICA L FUNCTION PANEL Performed By: #### 2 25185 #### [facility],[address] [place] [address] 08031 Sodium [Moles/Vol] 142 mmol/L Normal 136 - 145 [facility] Comment on above: Performed By: #### 2 65242 #### [facility],[address] [place] [address] 24416 Urea nitrogen [Mass/Vol] 22 mg/dL High 6 - 20 [facility] Comment on above: Performed By: #### 2 06194 #### [facility],[address] [place] [address] 64155 URINALYSISon 10-08-2019 Bilirubin [Mass/Vol] Negative Normal NORMAL: NEGATIVE [facility] Comment on above: Performed By: #### 2 03779 #### [facility],[address] [place] [address] 46903 Blood Negative Normal NORMAL: NEGATIVE [facility] Comment on above: Performed By: #### 2 51624 #### [facility],[address] [place] [address] 53785 Clarity (U) clear Normal NORMAL: CLEAR [facility] Comment on above: Performed By: #### 2 80412 #### [facility],[address] [place], [place] [phone] Color (U) p.yel Normal NORMAL: YELLOW [facility] Comment on above: Performed By: #### 2 63420 #### [facility],[address] [place] [address] 18832 Glucose [Mass/Vol] NORM Normal NORMAL: NORMAL [facility] Comment on above: Performed By: #### 2 72972 #### [facility],[address] [place], [place] [phone] Ketone Negative Normal NORMAL: NEGATIVE [facility] Comment on above: Performed By: #### 2 60838 #### [facility],[address] [place] [address] Microscopic NOT INDICATED Normal [facility] Comment on above: Performed By: #### 2 16214 #### [facility],[address] [place], [place] [phone] Nitrite Ql (U) Negative Normal NORMAL: NEGATIVE [facility] Comment on above: Performed By: #### 2 81454 #### [facility],[address] [place], [place] [phone] pH (Bld) 6 Normal NORMAL: 5.0-8.0 [facility] Comment on above: Performed By: #### 2 69897 #### [facility],[address] [place], [place] [phone] Protein (U) [Mass/Vol] Negative Normal JENN L: NEGATIVE [facility] Comment on above: Performed By: #### 2 98618 #### [facility],[address] [place] [address] 40680 Sp [place] 1.015 Normal NORMAL: 1.010-1.030 [facility] Comment on above: Performed By: #### 2 91742 #### [facility],[address] [place], [place] [phone] Specimen type Nom (Spec) Clean catch Normal [facility] Comment on above: Performed By: #### 2 08734 #### [facility],[address] [place] [address] Urobilinog NORM Normal NORMAL: NORMAL [facility] Comment on above: Performed By: #### 2 25832 #### [facility],[address] [place] [address] WBC (Bld) [#/Vol] Negative Normal NORMAL: NEGATIVE [facility] Comment on above: Performed By: #### 2 81752 #### [facility],[address] [place] [address] CBC + DIFFon 09-10-2019 Basophils (Bld) [#/Vol] 0.10 x10EE3/UL Normal 0.00 - 0 .10 [facility] Comment on above: Performed By: #### 2 85186 #### [facility],[address] [place], [place] [phone] Basophils/100 WBC (Bld) 1.0 % Normal 0.0 - 2.0 [facility] Comment on above: Performed By: #### 2 84593 #### [facility],[address] [place] [address] CBC + DIFF Normal [facility] Comment on above: Result Comment: CBC- COMPLETE BLOOD COUNT Performed By: #### 2 14192 #### [facility],[address] [place] [address] Eosinophils (Bld) [#/Vol] 0.50 x10EE3/UL Normal 0.00 - 0.50 [facility] Comment on above: Performed By: #### 2 92890 #### [facility],[address] [place], [place] [phone] Eosinophils/100 WBC (Bld) 6.3 % Normal 0.0 - 7.0 [facility] Comment on above: Performed By: #### 2 97617 #### [facility],[address] [place], [place] [phone] Erythrocyte distribution width (RBC) [Ratio] 13.3 % Normal 12.0 - 15.6 [facility] Comment on above: Performed By: #### 2 91799 #### [facility],[address] [place] [address] 28443 Hematocrit (Bld) [Volume fraction] 36.9 % Low 40.0 - 52.0 [facility] Comment on above: Performed By: #### 2 31355 #### [facility],[address] [place] [address] 66345 Hemoglobin (Bld) [Mass/Vol] 12.5 g/dL Low 13.0 - 17.5 [facility] Comment on above: Performed By: #### 2 60239 #### [facility],[address] [place] [address] 62174 Lymphocytes (Bld) [#/Vol] 2.20 x10EE3/UL Normal 0.80 - 2.80 [facility] Comment on above: Performed By: #### 2 09113 #### [facility],[address] [place] [address] 37892 Lymphocytes/100 WBC (Bld) 25.0 % Normal 20.0 - 45. 0 [facility] Comment on above: Performed By: #### 2 49102 #### [facility],[address] [place] [address] 79974 MANUAL DIFF N/A Normal [facility] Comment on above: Performed By: #### 2 00920 #### [facility],[address] [place] [address] 05014 MCH (RBC) [Entitic mass] 31 pg Normal 27 - 33 [facility] Comment on above: Performed By: #### 2 48661 #### [facility],[address] [place] [address] 25553 MCHC (RBC) [Mass/Vol] 34 X10 3 Normal 32 - 36 [facility] Comment on above: Performed By: #### 2 59360 #### [facility],[address] [place] [address] 55008 MCV (RBC) [Entitic vol] 93 fL Normal 81 - 98 [facility] Comment on above: Performed By: #### 2 38770 #### [facility],[address] [place] [address] 83437 Monocytes (Bld) [#/Vol] 0.90 x10EE3/UL Normal 0.20 - 1 .00 [facility] Comment on above: Performed By: #### 2 83657 #### [address] [address] MONOS % 10.6 % High 0.0 - 10.0 [facility] Comment on above: Performed By: #### 2 61387 #### [address] [address] Morphology Crispin (Bld) [Interp] N/A Normal [facility] Comment on above: Performed By: #### 2 89150 #### [address] [address] Neutrophils (Bld) [#/Vol] 5.00 x10EE3/UL Normal 1.50 - 7.10 [facility] Comment on above: Performed By: #### 2 98066 #### [address] [address] Neutrophils/100 WBC (Bld) 57.1 % Normal 46.0 - 76. 0 [facility] Comment on above: Performed By: #### 2 83278 #### [address] [address] Platelet mean volume (Bld) [Entitic vol] 7.6 fL Normal 6.4 - 10.5 [facility] Comment on above: Result Comment: AUTO MATED DIFFERENTIAL Performed By: #### 2 11453 #### [address],[place] [address] Platelets (Bld) [#/Vol] 236 x10EE3/UL Normal 150 - 450 [facility] Comment on above: Performed By: #### 2 36907 #### [facility],[address] [place] [address] 72826 RBC (Bld) [#/Vol] 3.99 x 10EE6/UL Low 4.50 - 6.00 [facility] Comment on above: Performed By: #### 2 25842 #### [facility],[address] [place] [address] 35547 WBC (Bld) [#/Vol] 8.7 x 10EE3/UL Normal 4.5 - 10.8 [facility] Comment on above: Performed By: #### 2 12706 #### [facility],[address] [place], [place] [phone] CULTURE URINEon 09-10-2019 CULTURE URINE CULTURE URINE _URINE CULTURE_ M I C R O B I O L O G Y R E P O R T FINAL Antimicrobial Susceptibility and Organism Identification Report Specimen Number : [id number] Requested : 09/10/19 Specimen Source : CLEAN CATCH URINE Collected : 09/10/19 04:30 Arredondo of Isolation : MEME HUANG Received : 09/10/19 04:30 Requesting Physician : FLORECITA ------ Patient/Specimen Tests and Comments Specimen Comments FINAL REPORT: NO GROWTH AT 48 HOURS ------ Tech : Source : CLEAN CATCH URINE ID # : [id number] FINAL Report Date : / / : Collected : 09/10/19 04:30 09/12/19.1053.BKO. 09/11/19.0717.JLN. 09/12/19.1053.BKO.[employer] PLETE 09/12/19105.BKO.to [facility] Normal [facility] Comment on above: Performed By: #### 2 78345 #### [facility],[address] [place], [place] [phone] LITHIUMon 09-10-2019 [place] [Moles/Vol] 0.6 mmol/L Normal 0.6 - 1.2 [facility] Comment on above: Performed By: #### 2 36213 #### [facility],[address] [place] [address] RENAL FUNCTION PANEL WITH eG FRon 10-28-2019 Age - Reported 54 years Normal [facility] Comment on above: Performed By: #### 2 46541 #### [facility],[address] [place] [address] 27610 Albumin [Mass/Vol] 3.4 g/dL Normal 3.4 - 4.8 [facility] Comment on above: Performed By: #### 2 73975 #### [facility],[address] [place] [address] 76113 B/C RATIO 11 ratio Normal 0 - 30 [facility] Comment on above: Performed By: #### 2 00720 #### [facility],[address] [place] [address] 19643 Calcium [Mass/Vol] 9.2 mg/dL Normal 8.6 - 10.2 [facility] Comment on above: Performed By: #### 2 56217 #### [facility],[address] [place] [address] 00583 Chloride [Moles/Vol] 107 mmol/L Normal 98 - 107 [facility] Comment on above: Performed By: #### 2 56645 #### [facility],[address] [place] [address] 09961 CO2 [Moles/Vol] 25.3 mmol/L Normal 21.0 - 31.0 [facility] Comment on above: Performed By: #### 2 07842 #### [facility],[address] [place] [address] 23086 Creatinine [Mass/Vol] 2.2 mg/dL High 0.7 - 1.3 [facility] Comment on above: Performed By: #### 2 41863 #### [facility],[address] [place] [address] 09148 GFR/1.73 sq M predicted among non-blacks MDRD (S/P/Bld) [Vol rate/Area] 31 ML/MINUTE Low 60 - 999 [facility] Comment on above: Performed By: #### 2 91380 #### [facility],[address] [place] [address] 29055 GFR/1.73 sq M predicted among non-blacks MDRD (S/P/Bld) [Vol rate/Area] 38 ML/MINUTE Low 60 - 999 [facility] Comment on above: Result Comment: ACCO RDING TO THE NATIONAL KIDNEY DISEASE EDUCATION PROGRAM(NKDE), A NORMAL eGFR IS A VALUE GREATER THAN OR EQUAL TO 60 ML/MIN/1.73 SQ METERS. CHRONIC KIDNEY DISEASE: <60mL/MIN/1.73 SQ METERS KIDNEY FAILURE: <15mL/MIN/1.73 SQ METERS THIS TEST SHOULD ONLY BE USED FOR PATIENTS 18 YEARS OF AGE AND OLDER. Performed By: #### 2 47360 #### [facility],[address] [place] [address] 95150 Glucose [Mass/Vol] 96 mg/dL Normal 74 - 106 [facility] Comment on above: Performed By: #### 2 90593 #### [facility],[address] [place] [address] 59844 Phosphate [Mass/Vol] 4.5 mg/dL Normal 2.7 - 4.9 [facility] Comment on above: Performed By: #### 2 11277 #### [facility],[address] [place] [address] 23457 Potassium [Moles/Vol] 3.5 mmol/L Normal 3.5 - 5.1 [facility] Comment on above: Performed By: #### 2 08867 #### [facility],[address] [place] [address] 75893 RENAL FUNCTION PANEL WITH eGFR Normal [facility] Comment on above: Result Comment: JESSICA L FUNCTION PANEL Performed By: #### 2 57983 #### [facility],[address] [place] [address] 56285 Sodium [Moles/Vol] 141 mmol/L Normal 136 - 145 [facility] Comment on above: Performed By: #### 2 25831 #### [facility],[address] [place] [address] Urea nitrogen [Mass/Vol] 24 mg/dL High 6 - 20 [facility] Comment on above: Performed By: #### 2 31554 #### [facility],[address] [place] [address] URINALYSISon 09-10-2019 Bilirubin [Mass/Vol] Negative Normal NORMAL: NEGATIVE [facility] Comment on above: Performed By: #### 2 78081 #### [facility],[address] [place] [address] Blood Negative Normal NORMAL: NEGATIVE [facility] Comment on above: Performed By: #### 2 98488 #### [facility],[address] [place] [address] Clarity (U) clear Normal NORMAL: CLEAR [facility] Comment on above: Performed By: #### 2 08492 #### [facility],[address] [place] [address] Color (U) p.yel Normal NORMAL: YELLOW [facility] Comment on above: Performed By: #### 2 76655 #### [facility],[address] [place], [place] [phone] Glucose [Mass/Vol] NORM Normal NORMAL: NORMAL [facility] Comment on above: Performed By: #### 2 00999 #### [facility],[address] [place], [place] [phone] Ketone Negative Normal NORMAL: NEGATIVE [facility] Comment on above: Performed By: #### 2 86591 #### [facility],[address] [place] [address] Microscopic NOT INDICATED Normal [facility] Comment on above: Performed By: #### 2 10196 #### [facility],[address] [place] [address] 57701 Nitrite Ql (U) Negative Normal NORMAL: NEGATIVE [facility] Comment on above: Performed By: #### 2 38431 #### [facility],[address] [place] [address] pH (Bld) 6.5 Normal NORMAL: 5.0-8.0 [facility] Comment on above: Performed By: #### 2 06282 #### [facility],[address] [place], [place] [phone] Protein (U) [Mass/Vol] Negative Normal JENN L: NEGATIVE [facility] Comment on above: Performed By: #### 2 07911 #### [facility],[address] [place] [address] Sp [place] 1.010 Normal NORMAL: 1.010-1.030 [facility] Comment on above: Performed By: #### 2 40465 #### [facility],[address] [place] [address] Specimen type Nom (Spec) Clean catch Normal [facility] Comment on above: Performed By: #### 2 50196 #### [facility],[address] [place] [address] Urobilinog NORM Normal NORMAL: NORMAL [facility] Comment on above: Performed By: #### 2 48417 #### [facility],[address] [place], [place] [phone] WBC (Bld) [#/Vol] Negative Normal NORMAL: NEGATIVE [facility] Comment on above: Performed By: #### 2 19844 #### [facility],[address] [place], [place] [phone] URINE CREATININE AND PROTEIN RATIOon 09-10-2019 CREATININE UR 58.3 mg/dl Normal [facility] Comment on above: Performed By: #### 2 86867 #### [facility],[address] [place], [place] [phone] PC RATIO 0.09 mg/dL Normal 0.00 - 10.00 [facility] Comment on above: Performed By: #### 2 84040 #### [facility],[address] [place] [address] 87542 Protein (U) [Mass/Vol] mg/dL Normal 0.00 - 10.00 [facility] Comment on above: Performed By: #### 2 54299 #### [facility],[address] [place] [address] 90175 BMP with eGFRon 08-31-2019 Age - Reported 54 years Normal [facility] Comment on above: Performed By: #### 2 13931 #### [facility],[address] [place] [address] 16752 Anion gap [Moles/Vol] 12 mmol/L Normal 10 - 20 [facility] Comment on above: Performed By: #### 2 86643 #### [facility],[address] [place] [address] 39942 Calcium [Mass/Vol] 9.4 mg/dL Normal 8.6 - 10.2 [facility] Comment on above: Performed By: #### 2 12566 #### [facility],[address] [place] [address] 44698 Chloride [Moles/Vol] 104 mmol/L Normal 98 - 107 [facility] Comment on above: Performed By: #### 2 55821 #### [facility],[address] [place] [address] 35404 CO2 [Moles/Vol] 26.9 mmol/L Normal 21.0 - 31.0 [facility] Comment on above: Performed By: #### 2 59489 #### [facility],[address] [place] [address] 50756 Creatinine [Mass/Vol] 2.4 mg/dL High 0.7 - 1.3 [facility] Comment on above: Performed By: #### 2 79124 #### [facility],[address] [place] [address] 36330 GFR/1.73 sq M predicted among non-blacks MDRD (S/P/Bld) [Vol rate/Area] Normal [facility] Comment on above: Result Comment: BASI C METABOLIC PANEL Performed By: #### 2 72407 #### [facility],[address] [place] [address] 34192 GFR/1.73 sq M predicted among non-blacks MDRD (S/P/Bld) [Vol rate/Area] 28 ML/MINUTE Low 60 - 999 [facility] Comment on above: Performed By: #### 2 37609 #### [facility],[address] [place] [address] 01454 GFR/1.73 sq M predicted among non-blacks MDRD (S/P/Bld) [Vol rate/Area] 34 ML/MINUTE Low 60 - 999 [facility] Comment on above: Result Comment: ACCO RDING TO THE NATIONAL KIDNEY DISEASE EDUCATION PROGRAM(NKDE), A NORMAL eGFR IS A VALUE GREATER THAN OR EQUAL TO 60 ML/MIN/1.73 SQ METERS. CHRONIC KIDNEY DISEASE: <60mL/MIN/1.73 SQ METERS KIDNEY FAILURE: <15mL/MIN/1.73 SQ METERS THIS TEST SHOULD ONLY BE USED FOR PATIENTS 18 YEARS OF AGE AND OLDER. Performed By: #### 2 86570 #### [address] [address] Glucose [Mass/Vol] 106 mg/dL Normal 74 - 106 [facility] Comment on above: Performed By: #### 2 89665 #### [address] [address] Potassium [Moles/Vol] 3.5 mmol/L Normal 3.5 - 5.1 [facility] Comment on above: Performed By: #### 2 63404 #### [address] [address] Sodium [Moles/Vol] 139 mmol/L Normal 136 - 145 [facility] Comment on above: Performed By: #### 2 66396 #### [address] [address] Urea nitrogen [Mass/Vol] 25 mg/dL High 6 - 20 [facility] Comment on above: Performed By: #### 2 16258 #### [facility],[address] [place], [place] [phone] HGB A1C [CCL]on 08-26-2019 HbA1c (Bld) [Mass fraction] 117 mg/dL Normal [facility] Comment on above: Result Comment: eAG: (Estimated average glucose) is a calculated value from HgbA1c and is branch service representative of the average blood glucose level in the last 2-3 month period. [facility] [address] [place] [address] Peyton Lang M.D. [id number] Performed By: #### 2 50829 #### [place] [phone] HbA1c (Bld) [Mass fraction] 5.7 % High 4.3-5.6 [facility] Comment on above: Result Comment: Amer ican Diabetes Association guidelines indicate that patients with HgbA1c in the range 5.7-6.4% are at increased risk for development of diabetes, and intervention by lifestyle modification may be beneficial. HgbA1c greater or equal to 6.5% is considered diagnostic of diabetes. Performed By: #### 2 05139 #### [facility],[address] [place] [address] Hemoglobin A1con 08-26-2019 HbA1c (Bld) [Mass fraction] 5.7 % High 4.3-5.6 [facility] Comment on above: Performed By: #### H BA1C #### [facility] Routine Lab [address] [place], [place] [address] HbA1c (Bld) [Mass fraction] 117 mg/dL Normal [facility] Comment on above: Performed By: #### H BA1C #### [facility] [address] [place] [id number] RENAL FUNCTION PANELon 08-14 Albumin [Mass/Vol] 3.2 g/dL Low 3.4 - 4.8 [facility] Comment on above: Performed By: #### 2 63003 #### [facility],[address] [place] [address]108 B/C RATIO 13 ratio Normal 0 - 30 [facility] Comment on above: Performed By: #### 2 08654 #### [facility],[address] [place] [address] 09929 Calcium [Mass/Vol] 8.8 mg/dL Normal 8.6 - 10.2 [facility] Comment on above: Performed By: #### 2 81401 #### [facility],[address] [place] [address] 63814 Chloride [Moles/Vol] 105 mmol/L Normal 98 - 107 [facility] Comment on above: Performed By: #### 2 05581 #### [facility],[address] [place] [address] 96937 CO2 [Moles/Vol] 29.8 mmol/L Normal 21.0 - 31.0 [facility] Comment on above: Performed By: #### 2 37319 #### [facility],[address] [place] [address] 58565 Creatinine [Mass/Vol] 2.0 mg/dL High 0.7 - 1.3 [facility] Comment on above: Performed By: #### 2 15989 #### [facility],[address] [place] [address] 48305 Glucose [Mass/Vol] 78 mg/dL Normal 74 - 106 [facility] Comment on above: Performed By: #### 2 41763 #### [facility],[address] [place] [address] 94292 Phosphate [Mass/Vol] 4.8 mg/dL Normal 2.7 - 4.9 [facility] Comment on above: Performed By: #### 2 46938 #### [facility],[address] [place] [address] 07568 Potassium [Moles/Vol] 3.9 mmol/L Normal 3.5 - 5.1 [facility] Comment on above: Performed By: #### 2 77679 #### [facility],[address] [place] [address] 97068 RENAL FUNCTION PANEL Normal [facility] Comment on above: Result Comment: JESSICA L FUNCTION PANEL Performed By: #### 2 74312 #### [facility],[address] [place] [address] 80235 Sodium [Moles/Vol] 141 mmol/L Normal 136 - 145 [facility] Comment on above: Performed By: #### 2 23740 #### [facility],[address] [place] [address] 90965 Urea nitrogen [Mass/Vol] 25 mg/dL High 6 - 20 [facility] Comment on above: Performed By: #### 2 76383 #### [facility],[address] [place] [address] 00232 CBC (NO DIFF)on 08-06-2019 CBC (NO DIFF) Normal [facility] Comment on above: Result Comment: CBC( WITHOUT DIFFERENTIAL) Performed By: #### 2 14073 #### [facility],[address] [place] [address] 54347 Erythrocyte distribution width (RBC) [Ratio] 13.2 % Normal 12.0 - 15.6 [facility] Comment on above: Performed By: #### 2 40050 #### [facility],[address] [place] [address] 29761 Hematocrit (Bld) [Volume fraction] 37.7 % Low 40.0 - 52.0 [facility] Comment on above: Performed By: #### 2 72864 #### [facility],[address] [place] [address] 13788 Hemoglobin (Bld) [Mass/Vol] 12.9 g/dL Low 13.0 - 17.5 [facility] Comment on above: Performed By: #### 2 20633 #### [facility],[address] [place] [address] 85338 MCH (RBC) [Entitic mass] 32 pg Normal 27 - 33 [facility] Comment on above: Performed By: #### 2 68629 #### [facility],[address] [place] [address] 53685 MCHC (RBC) [Mass/Vol] 34 X10 3 Normal 32 - 36 [facility] Comment on above: Performed By: #### 2 63302 #### [facility],[address] [place] [address] 27687 MCV (RBC) [Entitic vol] 94 fL Normal 81 - 98 [facility] Comment on above: Performed By: #### 2 47572 #### [facility],[address] [place] [address] 06133 Platelet mean volume (Bld) [Entitic vol] 7.3 fL Normal 6.4 - 10.5 [facility] Comment on above: Performed By: #### 2 99222 #### [facility],[address] [place] [address] 15749 Platelets (Bld) [#/Vol] 166 x10EE3/UL Normal 150 - 450 [facility] Comment on above: Performed By: #### 2 21277 #### [facility],[address] [place] [address] 41651 RBC (Bld) [#/Vol] 4.00 x 10EE6/UL Low 4.50 - 6.00 [facility] Comment on above: Performed By: #### 2 56670 #### [facility],[address] [place] [address] 49505 WBC (Bld) [#/Vol] 8.7 x 10EE3/UL Normal 4.5 - 10.8 [facility] Comment on above: Performed By: #### 2 55023 #### [facility],[address] [place] [address] 94760 CULTURE URINEon 08-06-2019 CULTURE URINE CULTURE URINE _URINE CULTURE_ M I C R O B I O L O G Y R E P O R T FINAL Antimicrobial Susceptibility and Organism Identification Report Specimen Number : [id number] Requested : 08/06/19 Specimen Source : CLEAN CATCH URINE Collected : 08/06/19 03:10 Ar[place]ondo of Isolation : MEME HUANG Received : 08/06/19 03:10 Requesting Physician : FLORECITA ------ Patient/Specimen Tests and Comments Specimen Comments FINAL REPORT: NO GROWTH AT 48 HOURS ------ Tech : Source : CLEAN CATCH URINE ID # : [id number] FINAL Report Date : / / : Collected : 08/06/19 03:10 08/08/19.1104.BKO. 08/07/19.0711.JLN. 08/08/19.1105.[employer] PLETE Normal [facility] Comment on above: Performed By: #### 2 06941 #### [facility],[address] [place] [address] LITHIUMon 08-06-2019 [place] [Moles/Vol] 0.6 mmol/L Normal 0.6 - 1.2 [facility] Comment on above: Performed By: #### 2 11419 #### [facility],[address] [place] [address] MR MRI BRAIN W/O CONTRASTon 08-06-2019 MR MRI BRAIN W/O CONTRAST [facility] [place] [address] Patient: REGGIE LEÓN Phone#: : 1965 Age: 54 Gender: M Pt. Type: Out Account: [id number] Location: Ordering: HODA BERNABE Exam Date: 08/06/2019/8:56 Family Phys: Charge Code: 101109 Physician: [place] Order #: [id number] DLP Dose#: PROCEDURE: MRI BRAIN WITHOUT CONTRAST [...] Momin MD on 08/06/2019 at 9:51 Normal [facility] RENAL FUNCTION PANELon 08-06 Albumin [Mass/Vol] 3.3 g/dL Low 3.4 - 4.8 [facility] Comment on above: Performed By: #### 2 56338 #### [place] [id number] B/C RATIO 11 ratio Normal 0 - 30 [facility] Comment on above: Performed By: #### 2 56932 #### [address] [address] Calcium [Mass/Vol] 8.9 mg/dL Normal 8.6 - 10.2 [facility] Comment on above: Performed By: #### 2 98749 #### [facility],[address] [place] [address] 92444 Chloride [Moles/Vol] 107 mmol/L Normal 98 - 107 [facility] Comment on above: Performed By: #### 2 67691 #### [facility],[address] [place] [address] 97969 CO2 [Moles/Vol] 26.8 mmol/L Normal 21.0 - 31.0 [facility] Comment on above: Performed By: #### 2 66113 #### [facility],[address] [place] [address] 50389 Creatinine [Mass/Vol] 2.2 mg/dL High 0.7 - 1.3 [facility] Comment on above: Performed By: #### 2 02846 #### [facility],[address] [place] [address] 79275 Glucose [Mass/Vol] 84 mg/dL Normal 74 - 106 [facility] Comment on above: Performed By: #### 2 15554 #### [facility],[address] [place] [address] 46154 Phosphate [Mass/Vol] 3.9 mg/dL Normal 2.7 - 4.9 [facility] Comment on above: Performed By: #### 2 90830 #### [facility],[address] [place] [address] 93803 Potassium [Moles/Vol] 4.1 mmol/L Normal 3.5 - 5.1 [facility] Comment on above: Performed By: #### 2 68595 #### [facility],[address] [place] [address] 15071 RENAL FUNCTION PANEL Normal [facility] Comment on above: Result Comment: JESSICA L FUNCTION PANEL Performed By: #### 2 32410 #### [facility],[address] [place] [address] 86213 Sodium [Moles/Vol] 141 mmol/L Normal 136 - 145 [facility] Comment on above: Performed By: #### 2 42649 #### [facility],[address] [place] [address] 00738 Urea nitrogen [Mass/Vol] 25 mg/dL High 6 - 20 [facility] Comment on above: Performed By: #### 2 18699 #### [facility],[address] [place] [address] 42506 URINALYSISon 08-06-2019 Bilirubin [Mass/Vol] Negative Normal NORMAL: NEGATIVE [facility] Comment on above: Performed By: #### 2 85920 #### [facility],[address] [place], [place] [phone] Blood Negative Normal NORMAL: NEGATIVE [facility] Comment on above: Performed By: #### 2 72065 #### [facility],[address] [place] [address] 72220 Clarity (U) clear Normal NORMAL: CLEAR [facility] Comment on above: Performed By: #### 2 33792 #### [facility],[address] [place] [address] Color (U) p.yel Normal NORMAL: YELLOW [facility] Comment on above: Performed By: #### 2 93319 #### [facility],[address] [place] [address] Glucose [Mass/Vol] NORM Normal NORMAL: NORMAL [facility] Comment on above: Performed By: #### 2 [id number] #### [facility],[address] [place], [place] [phone] Ketone Negative Normal NORMAL: NEGATIVE [facility] Comment on above: Performed By: #### 2 [id number] #### [facility],[address] [place], [place] [phone] Microscopic NOT Normal [facility] Comment on above: Performed By: #### 2 [id number] #### [facility],[address] [place] [address] Nitrite Ql (U) Negative Normal NORMAL: NEGATIVE [facility] Comment on above: Performed By: #### 2 05919 #### [facility],[address] [place], [place] [phone] pH (Bld) 8 Normal NORMAL: 5.0-8.0 [facility] Comment on above: Performed By: #### 2 [id number] #### [facility],[address] [place] [address] Protein (U) [Mass/Vol] Negative Normal JENN L: NEGATIVE [facility] Comment on above: Performed By: #### 2 [id number] #### [place] [address] Sp [place] 1.010 Normal NORMAL: 1.010-1.030 [facility] Comment on above: Performed By: #### 2 55898 #### [facility],[address] [place] [address] Specimen type Nom (Spec) Clean catch Normal [facility] Comment on above: Performed By: #### 2 [id number] #### [place] [address] Urobilinog NORM Normal NORMAL: NORMAL [facility] Comment on above: Performed By: #### 2 35105 #### [place] [address] WBC (Bld) [#/Vol] Negative Normal NORMAL: NEGATIVE [facility] Comment on above: Performed By: #### 2 67366 #### [place] [address] URINE CREATININE AND PROTEIN RATIOon 08-06-2019 CREATININE UR 35.5 mg/dl Normal [facility] Comment on above: Performed By: #### 2 [id number] #### [place] [address] PC RATIO 0.11 mg/dL Normal 0.00 - 10.00 [facility] Comment on above: Performed By: #### 2 35439 #### [place] [address] Protein (U) [Mass/Vol] mg/dL Normal 0.00 - 10.00 [facility] Comment on above: Performed By: #### 2 [id number] #### [place] [phone] Ammoniaon 03-19-2019 Ammonia mass conc (P) 34 umol/L Normal 16-60 [facility] Comment on above: Performed By: #### L ITH #### [facility] [address] [place] [address] Basic Metabolic Panelon 05-0 Anion gap molar conc 13 mmol/L Normal 9-15 [facility] Comment on above: Result Comment: Effe ctive: 12/21/2018 New reference range for this analyte has been established. Performed By: #### L ITH #### [facility] [address] [place] [address] Calcium mass conc 8.8 mg/dL Normal 8.5-9.9 [facility] Comment on above: Result Comment: Effe ctive: 12/21/2018 New reference range for this analyte has been established. Performed By: #### L ITH #### [facility] [address] [place] [address] Chloride molar conc 106 mmol/L Normal 95-107 [facility] Comment on above: Result Comment: Effe ctive: 12/21/2018 New reference range for this analyte has been established. Performed By: #### L ITH #### [facility] [address] [place] [address] CO2 molar conc 22 mmol/L Normal 20-31 [facility] Comment on above: Result Comment: Effe ctive: 12/21/2018 New reference range for this analyte has been established. Performed By: #### L ITH #### [facility] [address] [place] [address] Creatinine mass conc 1.78 mg/dL Critically high 0.70-1.20 [facility] Comment on above: Performed By: #### L ITH #### [facility] [address] [place] [address] GFR/1.73 sq M predicted among blacks MDRD vol rate/area (S/P/Bld) 48.1 mL/min/{1.73_m2} Low >60 [facility] Comment on above: Result Comment: >60 mL/min/1.73m2 EGFR, calc. for ages 18 and older using the MDRD formula (not corrected for weight), is valid for stable renal function. Performed By: #### L ITH #### [facility] [address] [place] [address] GFR/1.73 sq M.predicted MDRD vol rate/area 39.8 mL/min/{1.73_m2} Low >60 [facility] Comment on above: Result Comment: >60 mL/min/1.73m2 EGFR, calc. for ages 18 and older using the MDRD formula (not corrected for weight), is valid for stable renal function. Performed By: #### L ITH #### [facility] [address] [place] [address] Glucose mass conc 84 mg/dL Normal 70-99 [facility] Comment on above: Result Comment: Effe ctive: 12/21/2018 New reference range for this analyte has been established. Performed By: #### L ITH #### [facility] [address] [place] [address] Potassium molar conc 4.4 mmol/L Normal 3.4-4.9 [facility] Comment on above: Result Comment: Effe ctive: 12/21/2018 New reference range for this analyte has been established. Performed By: #### L ITH #### [facility] [address] [place] [address] Sodium molar conc 141 mmol/L Normal 135-144 [facility] Comment on above: Result Comment: Effe ctive: 12/21/2018 New reference range for this analyte has been established. Performed By: #### L ITH #### [facility] [address] [place] [address] Urea nitrogen mass conc 25 mg/dL Critically high 6-20 [facility] Comment on above: Performed By: #### L ITH #### [facility] [address] [place] [address] Valproic Acid /Depakene Leve rahul 03-19-2019 Protein mass conc 62.5 ug/mL Normal 50.0-100.0 [facility] Comment on above: Performed By: #### L ITH #### [facility] [address] [place] [address] Basic Metabolic Panelon 05-0 Anion gap molar conc 14 mmol/L Normal 9-15 [facility] Comment on above: Result Comment: Effe ctive: 12/21/2018 New reference range for this analyte has been established. Performed By: #### L ITH #### [facility] [address] [place] [address] Calcium mass conc 9.1 mg/dL Normal 8.5-9.9 [facility] Comment on above: Result Comment: Effe ctive: 12/21/2018 New reference range for this analyte has been established. Performed By: #### L ITH #### [facility] [address] [place] [address] Chloride molar conc 107 mmol/L Normal 95-107 [facility] Comment on above: Result Comment: Effe ctive: 12/21/2018 New reference range for this analyte has been established. Performed By: #### L ITH #### [facility] [address] [place] [address] CO2 molar conc 22 mmol/L Normal 20-31 [facility] Comment on above: Result Comment: Effe ctive: 12/21/2018 New reference range for this analyte has been established. Performed By: #### L ITH #### [facility] [address] [place] [address] Creatinine mass conc 2.32 mg/dL Critically high 0.70-1.20 [facility] Comment on above: Performed By: #### L ITH #### [facility] [address] [place] [address] GFR/1.73 sq M predicted among blacks MDRD vol rate/area (S/P/Bld) 35.4 mL/min/{1.73_m2} Low >60 [facility] Comment on above: Result Comment: >60 mL/min/1.73m2 EGFR, calc. for ages 18 and older using the MDRD formula (not corrected for weight), is valid for stable renal function. Performed By: #### L ITH #### [facility] [address] [place] [address] GFR/1.73 sq M.predicted MDRD vol rate/area 29.3 mL/min/{1.73_m2} Low >60 [facility] Comment on above: Result Comment: >60 mL/min/1.73m2 EGFR, calc. for ages 18 and older using the MDRD formula (not corrected for weight), is valid for stable renal function. Performed By: #### L ITH #### [facility] [address] [place] [address] Glucose mass conc 97 mg/dL Normal 70-99 [facility] Comment on above: Result Comment: Effe ctive: 12/21/2018 New reference range for this analyte has been established. Performed By: #### L ITH #### [facility] [address] [place] [address] Potassium molar conc 4.5 mmol/L Normal 3.4-4.9 [facility] Comment on above: Result Comment: Effe ctive: 12/21/2018 New reference range for this analyte has been established. Performed By: #### L ITH #### [facility] [address] [place] [address] Sodium molar conc 143 mmol/L Normal 135-144 [facility] Comment on above: Result Comment: Effe ctive: 12/21/2018 New reference range for this analyte has been established. Performed By: #### L ITH #### [facility] [address] [place] [address] Urea nitrogen mass conc 29 mg/dL Critically high 6-20 [facility] Comment on above: Performed By: #### L ITH #### [facility] [address] [place] [address] Basic Metabolic Panelon 05-0 Anion gap molar conc 10 mmol/L Normal 9-15 [facility] Comment on above: Result Comment: Effe ctive: 12/21/2018 New reference range for this analyte has been established. Performed By: #### L ITH #### [facility] [address] [place] [address] Calcium mass conc 8.7 mg/dL Normal 8.5-9.9 [facility] Comment on above: Result Comment: Effe ctive: 12/21/2018 New reference range for this analyte has been established. Performed By: #### L ITH #### [facility] [address] [place] [address] Chloride molar conc 109 mmol/L Critically high 95-107 [facility] Comment on above: Result Comment: Effe ctive: 12/21/2018 New reference range for this analyte has been established. Performed By: #### L ITH #### [facility] [address] [place] [address] CO2 molar conc 24 mmol/L Normal 20-31 [facility] Comment on above: Result Comment: Effe ctive: 12/21/2018 New reference range for this analyte has been established. Performed By: #### L ITH #### [facility] [address] [place] [address] Creatinine mass conc 1.77 mg/dL Critically high 0.70-1.20 [facility] Comment on above: Performed By: #### L ITH #### [facility] [address] [place] [address] GFR/1.73 sq M predicted among blacks MDRD vol rate/area (S/P/Bld) 48.4 mL/min/{1.73_m2} Low >60 [facility] Comment on above: Result Comment: >60 mL/min/1.73m2 EGFR, calc. for ages 18 and older using the MDRD formula (not corrected for weight), is valid for stable renal function. Performed By: #### L ITH #### [facility] [address] [place] [address] GFR/1.73 sq M.predicted MDRD vol rate/area 40.0 mL/min/{1.73_m2} Low >60 [facility] Comment on above: Result Comment: >60 mL/min/1.73m2 EGFR, calc. for ages 18 and older using the MDRD formula (not corrected for weight), is valid for stable renal function. Performed By: #### L ITH #### [facility] [address] [place] [address] Glucose mass conc 95 mg/dL Normal 70-99 [facility] Comment on above: Result Comment: Effe ctive: 12/21/2018 New reference range for this analyte has been established. Performed By: #### L ITH #### [facility] [address] [place] [address] Potassium molar conc 4.8 mmol/L Normal 3.4-4.9 [facility] Comment on above: Result Comment: Effe ctive: 12/21/2018 New reference range for this analyte has been established. Performed By: #### L ITH #### [facility] [address] [place] [address] Sodium molar conc 143 mmol/L Normal 135-144 [facility] Comment on above: Result Comment: Effe ctive: 12/21/2018 New reference range for this analyte has been established. Performed By: #### L ITH #### [facility] [address] [place] [address] Urea nitrogen mass conc 25 mg/dL Critically high 6-20 [facility] Comment on above: Performed By: #### L ITH #### [facility] [address] [place] [address] Ammoniaon 03-12-2019 Ammonia mass conc (P) 20 umol/L Normal 16-60 [facility] Comment on above: Performed By: #### N H3 #### [facility] [address] [place] [address] Basic Metabolic Panelon 04- Anion gap molar conc 14 mmol/L Normal 9-15 [facility] Comment on above: Result Comment: Effe ctive: 12/21/2018 New reference range for this analyte has been established. Performed By: #### L ITH #### [facility] [address] [place] [address] Calcium mass conc 9.1 mg/dL Normal 8.5-9.9 [facility] Comment on above: Result Comment: Effe ctive: 12/21/2018 New reference range for this analyte has been established. Performed By: #### L ITH #### [facility] [address] [place] [address] Chloride molar conc 109 mmol/L Critically high 95-107 [facility] Comment on above: Result Comment: Effe ctive: 12/21/2018 New reference range for this analyte has been established. Performed By: #### L ITH #### [facility] [address] [place] [address] CO2 molar conc 24 mmol/L Normal 20-31 [facility] Comment on above: Result Comment: Effe ctive: 12/21/2018 New reference range for this analyte has been established. Performed By: #### L ITH #### [facility] [address] [place] [address] Creatinine mass conc 1.94 mg/dL Critically high 0.70-1.20 [facility] Comment on above: Performed By: #### L ITH #### [facility] [address] [place] [address] GFR/1.73 sq M predicted among blacks MDRD vol rate/area (S/P/Bld) 43.6 mL/min/{1.73_m2} Low >60 [facility] Comment on above: Result Comment: >60 mL/min/1.73m2 EGFR, calc. for ages 18 and older using the MDRD formula (not corrected for weight), is valid for stable renal function. Performed By: #### L ITH #### [facility] [address] [place] [address] GFR/1.73 sq M.predicted MDRD vol rate/area 36.0 mL/min/{1.73_m2} Low >60 [facility] Comment on above: Result Comment: >60 mL/min/1.73m2 EGFR, calc. for ages 18 and older using the MDRD formula (not corrected for weight), is valid for stable renal function. Performed By: #### L ITH #### [facility] [address] [place] [address] Glucose mass conc 90 mg/dL Normal 70-99 [facility] Comment on above: Result Comment: Effe ctive: 12/21/2018 New reference range for this analyte has been established. Performed By: #### L ITH #### [facility] [address] [place] [address] Potassium molar conc 4.5 mmol/L Normal 3.4-4.9 [facility] Comment on above: Result Comment: Effe ctive: 12/21/2018 New reference range for this analyte has been established. Performed By: #### L ITH #### [facility] [address] [place] [address] Sodium molar conc 147 mmol/L Critically high 135-144 [facility] Comment on above: Result Comment: Effe ctive: 12/21/2018 New reference range for this analyte has been established. Performed By: #### L ITH #### [facility] [address] [place] [address] Urea nitrogen mass conc 27 mg/dL Critically high - [facility] Comment on above: Performed By: #### L ITH #### [facility] [address] [place] [address] [place] Levelon 03-12-2019 [place] molar conc 0.8 mmol/L Normal 0.6-1.2 [facility] Comment on above: Performed By: #### L ITH #### [facility] [address] [place] [address] Valproic Acid /Depakene Leve rahul 03-12-2019 Protein mass conc 70.6 ug/mL Normal 50.0-100.0 [facility] Comment on above: Performed By: #### L ITH #### [facility] [address] [place] [address] Basic Metabolic Panelon 02-13 Anion gap molar conc 13 mmol/L Normal 9-15 [facility] Comment on above: Result Comment: Effe ctive: 12/21/2018 New reference range for this analyte has been established. Performed By: #### B MP #### [facility] [address] [place] [address] Calcium mass conc 8.9 mg/dL Normal 8.5-9.9 [facility] Comment on above: Result Comment: Effe ctive: 12/21/2018 New reference range for this analyte has been established. Performed By: #### B MP #### [facility] [address] [place] [address] Chloride molar conc 108 mmol/L Critically high 95-107 [facility] Comment on above: Result Comment: Effe ctive: 12/21/2018 New reference range for this analyte has been established. Performed By: #### B MP #### [facility] [address] [place] [address] CO2 molar conc 23 mmol/L Normal 20-31 [facility] Comment on above: Result Comment: Effe ctive: 12/21/2018 New reference range for this analyte has been established. Performed By: #### B MP #### [facility] [address] [place] [address] Creatinine mass conc 1.82 mg/dL Critically high 0.70-1.20 [facility] Comment on above: Performed By: #### B MP #### [facility] [address] [place] [address] GFR/1.73 sq M predicted among blacks MDRD vol rate/area (S/P/Bld) 46.9 mL/min/{1.73_m2} Low >60 [facility] Comment on above: Result Comment: >60 mL/min/1.73m2 EGFR, calc. for ages 18 and older using the MDRD formula (not corrected for weight), is valid for stable renal function. Performed By: #### B MP #### [facility] [address] [place] [address] GFR/1.73 sq M.predicted MDRD vol rate/area 38.8 mL/min/{1.73_m2} Low >60 [facility] Comment on above: Result Comment: >60 mL/min/1.73m2 EGFR, calc. for ages 18 and older using the MDRD formula (not corrected for weight), is valid for stable renal function. Performed By: #### B MP #### [facility] [address] [place] [address] Glucose mass conc 82 mg/dL Normal 70-99 [facility] Comment on above: Result Comment: Effe ctive: 12/21/2018 New reference range for this analyte has been established. Performed By: #### B MP #### [facility] [address] [place] [address] Potassium molar conc 4.2 mmol/L Normal 3.4-4.9 [facility] Comment on above: Result Comment: Effe ctive: 12/21/2018 New reference range for this analyte has been established. Performed By: #### B MP #### [facility] [address] [place] [address] Sodium molar conc 144 mmol/L Normal 135-144 [facility] Comment on above: Result Comment: Effe ctive: 12/21/2018 New reference range for this analyte has been established. Performed By: #### B MP #### [facility] [address] [place] [address] Urea nitrogen mass conc 28 mg/dL Critically high 6-20 [facility] Comment on above: Performed By: #### B MP #### [facility] [address] [place] [address] Lipid Panelon 03-09-2019 Cholesterol in HDL mass conc 30 mg/dL Low 40-59 [facility] Comment on above: Result Comment: ATP [...] CHD Performed By: #### L IPID #### [facility] [address] [place] [address] Cholesterol in LDL mass conc 83 mg/dL Normal 0-129 [facility] Comment on above: Result Comment: ATP III LDL Classification is Optimal. Performed By: #### L IPID #### [facility] [address] [place] [address] Cholesterol mass conc 160 mg/dL Normal 0-199 [facility] Comment on above: Result Comment: ATP III Cholesterol classification is Desirable. Performed By: #### L IPID #### [facility] [address] [place] [address] Triglyceride mass conc 234 mg/dL Critically high 0-150 [facility] Comment on above: Result Comment: ATP III Triglycerides Classification is High. Effective: 12/21/2018 New reference range for this analyte has been established. Performed By: #### L IPID #### [facility] [address] [place] [address] Ammoniaon 03-04-2019 Ammonia mass conc (P) 35 umol/L Normal 16-60 [facility] Comment on above: Performed By: #### N H3 #### [facility] [address] [place] [address] [place] Levelon 03-04-2019 [place] molar conc 0.7 mmol/L Normal 0.6-1.2 [facility] Comment on above: Performed By: #### L ITH #### [facility] [address] [place] [address] TSH w/out Reflexon 201 9 Thyrotropin Qn 2.880 uIU/mL Normal 0.440-3.86 [facility] Comment on above: Result Comment: Effe ctive: 12/21/2018 New reference range for this analyte has been established. Performed By: #### T SH #### [facility] [address] [place] [address] VITAMIN Don 03-04-2019 VITAMIN D 33.1 ng/mL Normal 30.0-100.0 [facility] Comment on above: Result Comment: (30- 100 ng/mL) Optimum Level This assay accurately quantifies the sum of vitamin D3, 25-Hydroxy and vitamin D2, 25-Hyroxy. Performed By: #### V ITD #### [facility] [address] [place] [address] Valproic Acid /Depakene Leve rahul 03-04-2019 Protein mass conc 25.8 ug/mL Low 50.0-100.0 [facility] Comment on above: Performed By: #### V ALPR #### [facility] [address] [place] [address] Vitamin B12 and Folateon Cobalamin (Vitamin B12) mass conc 340 pg/mL Normal 232-1245 [facility] Comment on above: Performed By: #### B 12FO #### [facility] [address] [place] [address] Folate 10.2 ng/mL Normal 7.3-26.1 [facility] Comment on above: Result Comment: As o f 16, the methodology has changed. Results from this methodology should not be compared with results from previous methodology. Performed By: #### B 12FO #### [facility] [address] [place] [address] Creatinineon 06-06-2018 Creatinine 1.93 mg/dL High 0.58-0.96 [facility] Comment on above: Performed By: #### C RET1, TSH, LI ####[facility] [id number] [place], [place] [phone] eGFR (non-black) 27 . Normal [facility] Comment on above: Performed By: #### C RET1, TSH, LI ####[facility] [id number] [place], [place] [phone] eGFR- Amer. 33 Normal [facility] Comment on above: Performed By: #### C RET1, TSH, LI ####[facility] [id number] [place], [place] [phone] Lithiumon 06-06-2018 [place] 0.8 mmol/L Normal 0.6-1.2 [facility] Comment on above: Performed By: #### C RET1, TSH, LI ####[facility] [id number] [place], [place] [phone] TSHon 06-06-2018 Thyroid stimulating hormone (TSH) 2.350 uU/mL Normal 0.400-5.500 [facility] Comment on above: Performed By: #### C RET1, TSH, LI ####[facility] [id number] [place], [place] [phone] Culture, urine Bacteria identified Cx Nom (U) Culture exhibits no growth. [facility] Work Phone: Bacteria identified Cx Nom (U) Positive [facility] Work Phone: Bacteria identified Cx Nom (U) Actinomyces turicensis [facility] Work Phone: Bacteria identified Cx Nom (U) Streptococcus mitis [facility] Work Phone: Vital Signs Date Time Vital Sign Value Performing Clinician Facility 02-26-2025 11:40-0400 Diastolic blood pressure 76 mm[Hg] [facility] Work Phone: [facility] 02-26-2025 11:40-0400 Heart rate 75 /min [facility] Work Phone: [facility] 02-26-2025 11:40-0400 Respiratory rate 18 /min [facility] Work Phone: [facility] 02-26-2025 11:40-0400 SaO2% (BldA) [Mass fraction] 96 % [facility] Work Phone: [facility] 02-26-2025 11:40-0400 Systolic blood pressure 122 mm[Hg] [facility] Work Phone: [facility] 02-26-2025 09:00-0400 Body temperature 98.6 [degF] [facility] Work Phone: [facility] 02-12-2025 14:04-0400 Diastolic blood pressure 55 mm[Hg] [facility] Work Phone: [facility] 02-12-2025 14:04-0400 Heart rate 78 /min [facility] [facility] 02-[facility]-2025 14:04-0400 Respiratory rate 18 /min Chair [facility] Work Phone: [facility] 02-12-2025 14:04-0400 SaO2% (BldA) [Mass fraction] 95 % Chair [facility]osp Work Phone: [facility] 02-12-2025 14:04-0400 Systolic blood pressure 128 mm[Hg] Chair Hosp Work Phone: [facility] 02-12-2025 09:00-0400 Body temperature 98.6 [degF] Chair [facility]osp Work Phone: [facility] 09-14-2024 08:49-0400 Body height 176.3 cm Dorota Smith MD Work Phone: [facility] 09-14-2024 08:49-0400 Body mass index (BMI) [Ratio] 39.27 kg/m2 Dorota Smith MD Work Phone: [facility] 09-14-2024 08:49-0400 Body temperature 97.3 [degF] Dorota Smith MD Work Phone: [facility] 09-14-2024 08:49-0400 Body weight 122.05 kg Dorota Smith MD Work Phone: [facility] 09-14-2024 08:49-0400 Diastolic blood pressure 65 mm[Hg] Dorota Smith MD Work Phone: [facility] 09-14-2024 08:49-0400 Heart rate 106 /min Dorota Smith MD Work Phone: [facility] 09-14-2024 08:49-0400 Respiratory rate 14 /min Dorota Smith MD Work Phone: [facility] 09-14-2024 08:49-0400 Systolic blood pressure 104 mm[Hg] Dorota Smith MD Work Phone: [facility] 08-09-2024 10:45-0400 Diastolic blood pressure 68 mm[Hg] Chair Hosp Work Phone: [facility] 08-09-2024 10:45-0400 Heart rate 82 /min Chair [facility] Work Phone: [facility] 08-09-2024 10:45-0400 Respiratory rate 18 /min Chair [facility] Work Phone: [facility] 08-09-2024 10:45-0400 SaO2% (BldA) [Mass fraction] 96 % Chair [facility] Work Phone: [facility] 08-09-2024 10:45-0400 Systolic blood pressure 125 mm[Hg] Chair Hosp Work Phone: [facility] 08-09-2024 07:00-0400 Body temperature 98.4 [degF] Chair Hosp Work Phone: [facility] 07-17-2024 11:09-0400 Body height 182.9 cm Anthony Olivares MD Work Phone: [facility] 07-17-2024 11:09-0400 Body mass index (BMI) [Ratio] 36.48 kg/m2 Anthony Olivares MD Work Phone: [facility] 07-17-2024 11:09-0400 Body weight 122 kg Anthony Olivares MD Work Phone: [facility] 07-17-2024 11:09-0400 Diastolic blood pressure 73 mm[Hg] Anthony Olivares MD Work Phone: [facility] 07-17-2024 11:09-0400 Heart rate 90 /min Anthony Olivares MD Work Phone: [facility] 07-17-2024 11:09-0400 Systolic blood pressure 106 mm[Hg] Anthony Olivares MD Work Phone: [facility] 03-14-2024 12:00-0400 Diastolic blood pressure 62 mm[Hg] Chair [facility]osp Work Phone: [facility] 01-26-2024 12:00-0400 Heart rate 97 /min Chair [facility] Work Phone: [facility] 01-26-2024 12:00-0400 Respiratory rate 18 /min Chair [facility] Work Phone: [facility] 01-26-2024 12:00-0400 SaO2% (BldA) [Mass fraction] 96 % Chair [facility] Work Phone: [facility] 01-26-2024 12:00-0400 Systolic blood pressure 110 mm[Hg] Chair Hosp Work Phone: [facility] 01-26-2024 07:05-0400 Body temperature 98.6 [degF] Chair Hosp Work Phone: [facility] 12-20-2023 09:51-0500 Body height 177.8 cm Anthony Olivares MD Work Phone: [facility] 12-20-2023 09:51-0500 Body temperature 97.7 [degF] Anthony Olivares MD Work Phone: [facility] 12-20-2023 09:51-0500 Body weight 126.4 kg Anthony Olivares MD Work Phone: [facility] 12-20-2023 09:51-0500 Diastolic blood pressure 68 mm[Hg] Anthony Olivares MD Work Phone: [facility] 12-20-2023 09:51-0500 Heart rate 116 /min Anthony Olivraes MD Work Phone: [facility] 12-20-2023 09:51-0500 Systolic blood pressure 97 mm[Hg] Anthony Olivares MD Work Phone: [facility] 02-25-2023 11:04-0400 Body height 171.5 cm Luz Daniel MD Work Phone: [facility] 02-25-2023 11:04-0400 Body temperature 97.9 [degF] Luz Daniel MD Work Phone: [facility] 02-25-2023 11:04-0400 Body weight 146.69 kg Luz Daniel MD Work Phone: [facility] 02-25-2023 11:04-0400 Diastolic blood pressure 86 mm[Hg] Luz Daniel MD Work Phone: [facility] 02-25-2023 11:04-0400 Heart rate 93 /min Luz Daniel MD Work Phone: [facility] 02-25-2023 11:04-0400 Systolic blood pressure 125 mm[Hg] Luz Daniel MD Work Phone: [facility] 11-03-2022 13:05-0500 Body temperature 97.2 [degF] Douglaski 2 Work Phone: [facility] 11-03-2022 13:05-0500 Diastolic blood pressure 78 mm[Hg] Ashleigh 2 Work Phone: [facility] 11-03-2022 13:05-0500 Heart rate 89 /min Guki 2 Work Phone: [facility] 11-03-2022 13:05-0500 Respiratory rate 18 /min Douglaski 2 Work Phone: [facility] 11-03-2022 13:05-0500 SaO2% (BldA) [Mass fraction] 95 % Douglaski 2 Work Phone: [facility] 11-03-2022 13:05-0500 Systolic blood pressure 124 mm[Hg] Douglaski 2 Work Phone: [facility] 11-03-2022 07:52-0500 Body weight 144.74 kg Ashleigh 2 Work Phone: [facility] 08-27-2022 10:46-0400 Body height 171.5 cm Luz Daniel MD Work Phone: [facility] 08-27-2022 10:46-0400 Body temperature 98.29 [degF] Luz Daniel MD Work Phone: [facility] 08-27-2022 10:46-0400 Body weight 146.06 kg Luz Daniel MD Work Phone: [facility] 08-27-2022 10:46-0400 Diastolic blood pressure 95 mm[Hg] Luz Daniel MD Work Phone: [facility] 08-27-2022 10:46-0400 Heart rate 109 /min Luz Daniel MD Work Phone: [facility] 08-27-2022 10:46-0400 Systolic blood pressure 132 mm[Hg] Luz Daniel MD Work Phone: [facility] 07-27-2022 15:53-0400 Body height 176.5 cm Anthony Olivares MD Work Phone: [facility] 07-27-2022 15:53-0400 Body weight 142.88 kg Anthony Olivares MD Work Phone: [facility] 07-27-2022 15:53-0400 Diastolic blood pressure 85 mm[Hg] Anthony Olivares MD Work Phone: [facility] 07-27-2022 15:53-0400 Heart rate 94 /min Anthony Olivares MD Work Phone: [facility] 07-27-2022 15:53-0400 Systolic blood pressure 128 mm[Hg] Anthony Olivares MD Work Phone: [facility] 05-05-2022 13:15-0400 Body temperature 97.2 [degF] Kid[facility] 05-05-2022 13:15-0400 Diastolic blood pressure 91 mm[Hg] Kidney 1 [facility] 05-05-2022 13:15-0400 Heart rate 116 /min Kidney 1 [facility] 05-05-2022 13:15-0400 Systolic blood pressure 157 mm[Hg] Kidney 1 [facility] 05-05-2022 07:40-0400 SaO2% (BldA) [Mass fraction] 95 % Kidney 1 [facility] 05-05-2022 07:36-0400 Body weight 140.57 kg Kidney 1 [facility] 11-04-2020 15:52-0500 Body Temperature 97.2 [degF] [facility] 11-04-2020 15:52-0500 BP Diastolic 74 mm[Hg] [facility] [place] 11-04-2020 15:52-0500 BP Systolic 113 mm[Hg] [facility] [place] 11-04-2020 15:52-0500 Pulse (Heart Rate) 92 /min [facility], [place] 11-04-2020 15:52-0500 Pulse Oximetry 96 % [facility] [place] 11-04-2020 15:52-0500 Respiratory Rate 17 /min [facility], [place] 11-04-2020 05:31-0500 Body weight 114.31 kg [place], [place] Encounters Encounter Date Encounter Type Care Provider Facility Start: 08-28-2025 ambulatory ALFREDO PHIPPS Facility:[facility] Start: 08-27-2025 ambulatory Adam CHANDLER Fac ility:[facility] Start: 08-15-2025 End: 08-15-2025 ambulatory ANTHONY OLIVARES Facility:[facility] Start: 08-14-2025 ambulatory Alfredo CHANDLER Faci lity:[facility] Start: 08-14-2025 Registered Referred Alfredo Phipps - [facility] [employer] Start: 08-09-2025 Registered Referred Alfredo Phipps - [employer] Start: 08-09-2025 End: 08-09-2025 ambulatory Alfredo CHANDLER Facility:[facility] Start: 08-02-2025 Registered Referred Adam Ferraro -[employer] Start: 08-02-2025 End: 08-02-2025 ambulatory Adam CHANDLER Facility:[facility] Start: 07-29-2025 Registered Referred Alfredo Phipps - [employer] Start: 07-29-2025 End: 07-29-2025 ambulatory Alfredo CHANDLER Facility:[facility] Start: 07-02-2025 Registered Referred Lasha alicia MD -[facility] Start: 07-02-2025 End: 07-02-2025 ambulatory Lasha CHANDLER Facility:[facility] Start: 07-01-2025 Registered Referred Adam Ferraro -[facility] Start: 07-01-2025 End: 07-01-2025 ambulatory Adam CHANDLER Facility:[facility] Start: 06-27-2025 ambulatory Adam Jasmine RAMESH Fac ility:[facility] Start: 06-27-2025 Registered Referred Adam Ferraro -[facility] Start: 06-20-2025 Registered Referred Alfredo Phipps - [employer] Start: 06-20-2025 End: 06-20-2025 ambulatory Alfredo CHANDLER Facility:[facility] Start: 06-19-2025 Registered Referred Alfredo Desire - [employer] Start: 06-19-2025 End: 06-19-2025 ambulatory Elgin Bal Facility:[facility] Start: 06-06-2025 End: 06-06-2025 ambulatory Julieta Luo RN [facility] Start: 06-05-2025 Registered Referred Adam Ferraro -[facility] Start: 06-05-2025 End: 06-05-2025 ambulatory Adam CHANDLER Facility:[facility] Start: 05-28-2025 End: 05-28-[address] Elgin Bal MD Work Phone: -[employer] Start: 05-28-2025 End: 05-28-2025 Departed Referred Adam Ferraro -[employer] Start: 05-28-2025 Registered Referred Adam Ferraro -[facility] Start: 05-28-2025 End: 05-28-2025 ambulatory Adam CHANDLER Facility:[facility] Start: 05-26-2025 Registered Referred Adam Ferraro -[facility] [facility] Start: 05-26-2025 End: 05-26-2025 ambulatory Adam CHANDLER Facility:[facility] Start: 05-24-2025 ambulatory Adam CHANDLER Fac ility:[facility] Start: 05-24-2025 Registered Referred Adam Ferraro -[facility] [facility] Start: 05-23-2025 End: 05-23-2025 Telemedicine consultation with patient Anthony Olivares MD Work Phone: [facility] Start: 05-23-2025 End: 05-27-2025 ambulatory Anthony Olivares MD Work Phone: [facility] Comment on above: 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 Start: 05-02-2025 End: 05-02-2025 ambulatory Adam CHANDLER Facility:[facility] Start: 04-26-2025 End: 04-26-[address] Elgin Bal MD Work Phone: -[employer] Start: 04-26-2025 End: 04-26-2025 Departed Referred Alfredo Phipps -[employer] Start: 04-26-2025 Registered Referred Alfredo Phipps - [employer] Start: 04-26-2025 End: 04-26-2025 ambulatory Elgin Bal Facility:[facility] Start: 04-24-2025 ambulatory Adam CHANDLER Fac ility:[facility] Start: 04-24-2025 Registered Referred Adam Ferraro -[facility] Start: 04-01-2025 End: 04-01-[address] Elgin Bal MD Work Phone: [facility] Start: 04-01-2025 End: 04-01-2025 Departed Referred Adam Ferraro -[employer] Start: 04-01-2025 End: 04-01-2025 ambulatory Adam CHANDLER Facility:[facility] Start: 03-27-2025 ambulatory Alfredo CHANDLER Faci lity:[facility] Start: 03-27-2025 Registered Referred Alfredo Phipps - [employer] Start: 03-04-2025 End: 03-04-[address] Elgin Bal MD Work Phone: [facility] Work Phone: Start: 03-04-2025 End: 03-04-2025 Departed Referred Adam Ferraro -[facility] [facility] Start: 03-04-2025 Registered Referred Adam Ferraro -[employer] Start: 03-04-2025 End: 03-04-2025 ambulatory Adam Wandamele RAMESH Facility:[facility] Start: 02-27-2025 End: 02-27-[address] Elgin Bal MD Work Phone: [facility] Work Phone: Start: 02-27-2025 End: 02-27-2025 Departed Referred Alfredo Phipps -[facility] Start: 02-27-2025 Registered Referred Alfredo Phipps - [employer] Start: 02-26-2025 End: 02-27-2025 ambulatory ALFREDO PHIPPS Facility:[facility] Start: 02-26-2025 End: 02-26-2025 Subsequent hospital visit by physician Chair [facility] Work Phone: [facility] Start: 02-25-2025 End: 02-25-[address] Elgin Bal MD Work Phone: [facility] Work Phone: Start: 02-25-2025 End: 02-25-2025 Departed Referred Adam Ferraro -[facility] [facility] Start: 02-25-2025 Registered Referred Adam Ferraro -[employer] Start: 02-25-2025 End: 02-25-2025 ambulatory Adam Wandamele RAMESH Facility:[facility] Start: 02-12-2025 ambulatory ANTHONY Rivera ELISE Facility: [facility] Start: 02-12-2025 End: 02-12-2025 Subsequent hospital visit by physician Chair [facility] Work Phone: [facility] Start: 02-11-2025 End: 02-11-[address] Elgin Bal MD Work Phone: [facility] Work Phone: Start: 02-11-2025 End: 02-11-2025 Departed Referred Alfredo Shultzsaros -[facility] Start: 02-11-2025 Registered Referred Alfredo Lexiisaros - [employer] Start: 02-11-2025 End: 02-11-2025 ambulatory Alfredo Lexiiangi CHANDLER Facility:[facility] Start: 02-06-2025 End: 02-06-[address] Elgin Bal MD Work Phone: [facility] Work Phone: Start: 02-06-2025 End: 02-06-2025 Departed Referred Alfredo Shultzsaros -[facility] Start: 02-06-2025 Registered Referred Alfredo Shultzsaros - [employer] Start: 02-06-2025 End: 02-06-2025 ambulatory [facility] Facility:[facility] Start: 01-30-2025 End: 01-30-2025 Departed Referred Adam Ferraro -[employer] Start: 01-30-2025 End: 01-30-2025 Orders Only Anthony Olivares MD Work Phone: [facility] Start: 01-30-2025 Registered Referred Adam Ferraro -[employer] Start: 01-30-2025 End: 01-30-2025 ambulatory Adam CHANDLER Facility:[facility] Start: 01-25-2025 End: 01-25-[address] Elgin Bal MD Work Phone: [facility] Work Phone: Start: 01-25-2025 End: 01-25-2025 Departed Referred Adam Ferraro -[employer] Start: 01-25-2025 End: 01-25-2025 ambulatory [facility] Facility:[facility] Start: 01-03-2025 End: 01-03-[address] Elgin Bal MD Work Phone: [facility] Work Phone: Start: 01-03-2025 End: 01-03-2025 Departed Referred Adam Ferraro -[employer] Start: 01-03-2025 Registered Referred Adam Jasmine -[employer] Start: 01-02-2025 End: 01-03-[address] Elgin Bal MD Work Phone: [facility] Work Phone: Start: 01-02-2025 End: 01-02-2025 Departed Referred Adam Ferraro -[facility] [facility] Start: 01-02-2025 Registered Referred Adam Jasmine -[employer] Start: 01-02-2025 End: 01-02-2025 ambulatory [facility] Facility:[facility] Start: 12-28-2024 End: 12-28-[address] Elgin Bal MD Work Phone: [facility] Work Phone: Start: 12-28-2024 End: 12-28-2024 Departed Referred Adam Ferraro -[facility] Start: 12-28-2024 End: 12-28-2024 ambulatory [facility] Facility:[facility] Start: 11-27-2024 End: 11-27-2024 Departed Referred Adam Ferraro -[employer] Start: 11-27-2024 End: 11-27-2024 ambulatory Adam CHANDLER Facility:[facility] Start: 11-20-2024 End: 11-23-2024 ambulatory Anthony Olivares MD Work Phone: [facility] Start: 11-15-2024 End: 11-15-2024 Departed Referred Adam Jasmine -[facility] Start: 11-15-2024 End: 11-15-2024 ambulatory Adam CHANDLER Facility:[facility] Start: 09-27-2024 End: 09-27-2024 Departed Referred Adam Jasmine -[facility] [employer] [facility] Start: 09-27-2024 End: 09-27-2024 ambulatory Adam Ferraro OLS Facility:[facility] Start: 09-14-2024 End: 09-14-2024 Patient encounter procedure Dorota Smith MD Work Phone: [facility] Comment on above: 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); Rash and nonspecific skin eruption; 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) Start: 09-14-2024 End: 09-14-2024 ambulatory ALFREDO PHIPPS Facility:[facility] Start: 08-09-2024 End: 08-09-2024 Subsequent hospital visit by physician Chair [facility] Work Phone: [facility] Comment on above: Rituximab Start: 07-17-2024 End: 07-20-2024 ambulatory Anthony Olivares MD Work Phone: [facility] [place] Start: 07-17-2024 End: 07-17-2024 Patient encounter procedure Anthony Olivares MD Work Phone: [facility] Comment on above: 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); Stage 3b chronic kidney disease (HCC); Benign hypertension with chronic kidney disease Start: 05-21-2024 Telephone encounter Dorota hameed MD Work Phone: [facility] Comment on above: No [...] kidney disease Start: 02-03-2024 End: 02-03-2024 ambulatory [facility] Work Phone: Start: 02-03-2024 End: 02-03-2024 [facility]ed [facility] Start: 01-26-2024 End: 01-26-2024 Subsequent hospital visit by physician Chair [facility] Work Phone: [facility] Comment on above: Rituximab Start: 01-06-2024 End: 01-06-2024 ambulatory [facility] Work Phone: Start: 01-06-2024 End: 01-06-2024 [facility] Start: 12-29-2023 Orders Only Babak Drummond RN [facility] Start: 12-27-2023 Orders Only Anthony Olivares MD Work Phone: [facility] Start: 12-23-2023 Telephone encounter Nuria noyola RN [facility] Comment on above: Appointment Start: 12-20-2023 ambulatory Anthony Olivares MD Work Phone: [facility] Start: 12-20-2023 End: 12-20-2023 Patient encounter procedure Anthony Olivares MD Work Phone: [facility] Comment on above: 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); Stage 3b chronic kidney disease (HCC); Benign hypertension with chronic kidney disease Start: 12-09-2023 End: 12-09-2023 ambulatory [facility] Work Phone: Start: 12-09-2023 End: 12-09-2023 [facility] Start: 11-16-2023 End: 11-16-2023 [facility] Start: 11-16-2023 [facility] Start: 11-11-2023 End: 11-11-2023 ambulatory [facility] Work Phone: Start: 11-11-2023 End: 11-11-2023 [facility] Start: 11-11-2023 [facility] Start: 10-27-2023 End: 10-27-2023 ambulatory [facility] Work Phone: Start: 10-27-2023 End: 10-27-2023 Departed Referred [facility] Start: 10-14-2023 End: 10-14-2023 ambulatory [facility] Work Phone: Start: 10-14-2023 End: 10-14-2023 [facility] Start: 09-27-2023 End: 09-27-2023 ambulatory [facility] Work Phone: Start: 09-27-2023 End: 09-27-2023 [facility] Start: 09-27-2023 [facility] Start: 09-16-2023 End: 09-16-2023 ambulatory [facility] Work Phone: Start: 09-16-2023 End: 09-16-2023 [facility] Start: 08-29-2023 Telephone encounter Dorota hameed MD Work Phone: [facility] Comment on above: Patient Update Start: 08-26-2023 Telephone encounter Luz Daniel MD Work Phone: [facility] [place] [facility] Comment on above: NO SHOW Start: 08-19-2023 End: 08-19-2023 ambulatory [facility] Work Phone: Start: 08-19-2023 End: 08-19-2023 [facility] Start: 07-28-2023 End: 07-28-2023 [facility] Start[facility] 07-28-2023 [facility] Start: 07-24-2023 [facility] Start: 07-22-2023 End: 07-22-2023 ambulatory [facility] Work Phone: Start: 07-22-2023 End: 07-22-2023 [facility] Start: 06-24-2023 End: 06-24-2023 ambulatory [facility] Work Phone: Start: 06-24-2023 End: 06-24-2023 [facility] Start: 06-24-2023 [facility] Start: 05-30-2023 End: 05-30-2023 ambulatory [facility] Work Phone: Start: 05-30-2023 End: 05-30-2023 [facility] Start: 05-30-2023 [facility] Start: 05-27-2023 End: 05-27-2023 ambulatory [facility] Work Phone: Start: 05-27-2023 End: 05-27-2023 [facility] Start: 05-27-2023 [facility] Start: 05-19-2023 End: 05-19-2023 ambulatory [facility] Work Phone: Start: 05-19-2023 End: 05-19-2023 [facility] Start: 05-19-2023 [facility] Start: 04-29-2023 End: 04-29-2023 ambulatory [facility] Work Phone: Start: 04-29-2023 End: 04-29-2023 [facility] Start: 04-29-2023 [facility] Start: 04-27-2023 End: 04-27-2023 ambulatory [facility] Work Phone: Start: 04-27-2023 End: 04-27-2023 [facility] Start: 04-04-2023 End: 04-04-2023 [facility] Start: 04-01-2023 End: 04-01-2023 [facility] Start: 03-04-2023 End: 03-04-2023 ambulatory [facility] Work Phone: Start: 03-04-2023 End: 03-04-2023 [facility] Start: 02-25-2023 End: 02-25-2023 Patient encounter procedure Luz Daniel MD Work Phone: [facility] [place] [facility] Comment on above: Rheumatoid arthritis involving both hands 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 rheumatoid factor (HCC) (Primary Dx); Granulomatosis with polyangiitis with renal involvement (HCC) Start: 02-25-2023 End: 02-25-2023 ambulatory [facility] Work Phone: Start: 02-25-2023 End: 02-25-2023 [facility] Start: 02-04-2023 End: 02-04-2023 ambulatory [facility] Work Phone: Start: 02-04-2023 End: 02-04-2023 [facility] Start: 02-04-2023 [facility] Start: 01-25-2023 End: 01-25-2023 ambulatory [facility] Work Phone: Start: 01-25-2023 End: 01-25-2023 [facility] Start: 01-25-2023 [facility] Start: 01-19-2023 End: 01-19-2023 [facility] Start: 01-19-2023 [facility] Start: 01-07-2023 End: 01-07-2023 ambulatory [facility] Work Phone: Start: 01-07-2023 End: 01-07-2023 [facility] Start: 01-07-2023 [facility] Start: 12-28-2022 End: 12-28-2022 ambulatory [facility] Work Phone: Start: 12-28-2022 End: 12-28-2022 [facility]ed [facility] Start: 12-28-2022 [facility] Start: 12-15-2022 End: 12-15-2022 [facility] Start: 12-15-2022 [facility] Start: 12-10-2022 End: 12-10-2022 ambulatory [facility] Work Phone: Start: 12-10-2022 End: 12-10-2022 [facility] Start: 11-17-2022 End: 11-17-2022 ambulatory [facility] Work Phone: Start: 11-17-2022 End: 11-17-2022 [facility] Start: 11-17-2022 [facility] Start: 11-12-2022 End: 11-12-2022 [facility] Start: 11-12-2022 [facility] Start: 11-03-2022 End: 11-03-2022 Patient encounter procedure [facility] Main [facility] Chair 1 Kidney Medicine Comment on above: 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) Start: 11-02-2022 Orders Only Adam Tee MD Work Phone: [facility] Main [place] Comment on above: 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) Start: 10-27-2022 End: 10-27-2022 ambulatory [facility] Work Phone: Start: 10-27-2022 End: 10-27-2022 Departed Referred [facility] Start: 10-27-2022 Registered Referred [facility] Start: 10-15-2022 End: 10-15-2022 Departed Referred [facility] Start: 10-15-2022 Registered Referred [facility] Start: 09-27-2022 End: 09-27-2022 ambulatory [facility] Work Phone: Start: 09-27-2022 End: 09-27-2022 Departed Referred [facility] Start: 09-27-2022 Registered Referred [facility] Start: 09-17-2022 End: 09-17-2022 ambulatory [facility] Work Phone: Start: 09-17-2022 End: 09-17-2022 Departed Referred [facility] Start: 09-17-2022 Registered Referred [facility] Start: 08-27-2022 End: 08-27-2022 Patient encounter procedure Luz Daniel MD Work Phone: [facility] [place] Comment on above: Rheumatoid arthritis involving both hands 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 rheumatoid factor (HCC) (Primary Dx) Start: 08-27-2022 End: 08-27-2022 [facility]ed [facility] Start: 08-27-2022 Registered [facility] Start: 08-23-2022 End: 08-23-2022 ambulatory [facility] Work Phone: Start: 08-23-2022 End: 08-23-2022 Departed Referred [facility] Start: 08-23-2022 Registered Referred [facility] Start: 08-12-2022 End: 08-12-2022 ambulatory [facility] Work Phone: Start: 08-12-2022 End: 08-12-2022 Departed Referred [facility] Start: 07-28-2022 End: 07-28-2022 ambulatory [facility] Work Phone: Start: 07-28-2022 End: 07-28-2022 Departed Referred [facility] Start: 07-28-2022 Registered Referred [facility] Start: 07-27-2022 End: 07-27-2022 Patient encounter procedure Anthony Olivares MD Work Phone: Kidney [facility] Comment on above: 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); Stage 3a chronic kidney disease (HCC) Start: 07-27-2022 ambulatory Anthony Olivares MD Work Phone: [facility] Start: 07-15-2022 End: 07-15-2022 ambulatory [facility] Work Phone: Start: 07-15-2022 End: 07-15-2022 Departed Referred [facility] Start: 07-15-2022 Registered Referred [facility] Start: 06-28-2022 End: 06-28-2022 ambulatory [facility] Work Phone: Start: 06-28-2022 End: 06-28-2022 Departed Referred [facility] Start: 06-28-2022 Registered Referred [facility] Start: 06-17-2022 End: 06-17-2022 ambulatory [facility] Work Phone: Start: 06-17-2022 End: 06-17-2022 Departed [facility] Start: 05-27-2022 End: 05-27-2022 Departed [facility] Start: 05-20-2022 End: 05-20-2022 Departed Referred [facility] Start: 05-05-2022 Patient encounter procedure Anthony Olivares MD Work Phone: [facility] [place] Comment on above: Granulomatosis with polyangiitis with [...] (HCC) Start: 04-27-2022 End: 04-27-2022 Departed [facility] Start: 04-27-2022 Registered Referred [facility] Start: 04-22-2022 End: 04-22-2022 Departed Referred [facility] [employer] Start: 04-22-2022 Registered Referred [facility] Start: 04-21-2022 End: 04-21-2022 Departed Referred [facility] [facility] Start: 04-21-2022 Registered Referred [facility] [employer] [facility] Start: 04-06-2022 End: 04-06-2022 Departed Referred [facility] Start: 04-06-2022 Registered Referred [facility] Start: 04-05-2022 End: 04-05-2022 Departed [facility] Start: 04-05-2022 [facility] Start: 04-02-2022 End: 04-02-2022 [facility] Start: 04-02-2022 [facility] Start: 03-30-2022 Orders Only Anthony Olivares MD Work Phone: [facility] Comment on above: Granulomatosis with polyangiitis, unspecified whether renal involvement (HCC) (Primary Dx) Start: 03-25-2022 End: 03-25-2022 [facility] Start: 03-25-2022 [facility] Start: 03-19-2022 End: 03-19-2022 [facility] Start: 03-19-2022 [facility] Start: 02-25-2022 End: 02-25-2022 [facility] Start: 02-25-2022 [facility] Start: 02-18-2022 End: 02-18-2022 [facility]ed [facility] Start: 01-28-2022 End: 01-28-2022 [facility]ed [facility] Start: 01-28-2022 [facility] Start: 01-25-2022 End: 01-25-2022 [facility]ed [facility] Start: 01-25-2022 [facility] Start: 01-04-2022 End: 01-04-2022 [facility]ed [facility] Start: 01-04-2022 [facility] Start: 12-07-2021 End: 12-07-2021 Departed Referred [facility] Start: 12-03-2021 Registered Referred [facility] Start: 11-09-2021 Registered Referred [facility] Start: 11-05-2021 Registered Referred [facility] Start: 10-28-2020 End: 11-04-2020 Evaluation and management of inpatient [place] Work Phone: [facility]S [employer] Comment on above: Pneumonia due to COV ID-19 virus (Primary Dx); Hypoxia; Hypokalemia; Stage 3 chronic kidney disease, unspecified whether stage 3a or 3b CKD Start: 11-14-2019 Encounter for genera l adult medical examination without abnormal findings [facility] Start: 11-14-2019 End: 08-05-2020 Patient encounter procedure HODA BROWNING [facility] Start: 08-06-2019 End: 08-06-2019 Patient encounter procedure HODA BROWNING [facility] Start: 10-21-2009 End: 01-29-2013 Patient encounter status Ronny Polanco MD Work Phone: [facility] Encounter for genera l adult medical examination without abnormal findings [facility] Procedures Date Procedure Procedure Detail Performing Clinician Start: 08-14-[address] [place] [address] Elgin Bal MD Work Phone: Start: 08-14-2025 Serum inorganic phos phate measurement Dr. Elgin Bal MD Work Phone: Start: 08-02-[address] [place] [address] Elgin Bal MD Work Phone: Start: 07-29-2025 Serum inorganic phos phate measurement Dr. Elgin Bal MD Work Phone: Start: 07-29-2025 Vitamin D, 25-hydrox y measurement Dr. Elgin Bal MD Work Phone: Comment on above: Vitamin D StatusDefi ciency: <20 ng/mL (50nmol/L)Insufficiency: 20-30 ng/mL (50-75 nmol/L)Sufficiency: 30-100 ng/mL (75-250 nmol/L)Toxicity: >100 ng/mL (>250 nmol/L) Start: 07-02-[address] [place] [address] Elgin Bal MD Work Phone: Start: 06-19-[address] [place] [address] Elgin Bal MD Work Phone: Start: 06-19-2025 Serum inorganic phos phate measurement Dr. Elgin Bal MD Work Phone: Start: 05-26-2025 Urnls dip stick/tabl et reagent auto microscopy Dr. Elgin Bal MD Work Phone: Start: 05-26-[address] Keyur Bal MD Work Phone: Start: 05-02-[address] [place] [address] Elgin Bal MD Work Phone: Start: 04-24-[address] [place] [address] Elgin Bal MD Work Phone: Start: 04-24-2025 Serum inorganic phos phate measurement Dr. Elgin Bal MD Work Phone: Start: 04-01-[address] [place] [address] Elgin Bal MD Work Phone: Start: 02-27-[address] [place] [address] Elgin Bal MD Work Phone: Start: 01-30-[address] [place] [address] Elgin Bal MD Work Phone: Start: 01-03-[address] Elgin Bal MD Work Phone: Start: 01-03-2025 Urine microalbumin/creatinine ratio measurement Dr. Elgin Bal MD Work Phone: Comment on above: Test not performed Start: 01-02-2025 Assay of phosphorus inorganic Dr. Elgin Bal MD Work Phone: Start: 01-02-[address] [place] [address] Elgin Bal MD Work Phone: [...] blood Imola K Patrickpay Work Phone: Start: 10-29-2020 25 hydroxy includes fractions if performed Imola K [employer] Work Phone: Start: 10-29-2020 Assay of ferritin Imola K Emily Work Phone: Start: 10-29-2020 Blood count complete auto&auto difrntl wbc Imola K [employer] Work Phone: Start: 10-29-2020 C-reactive protein Imol a K Emily Work Phone: Start: 10-29-2020 Fibrin dgradj produc ts d-dimer quantitative Imola K Osapay Work Phone: Start: 10-29-2020 Fibrinogen activity Imo la K [employer] Work Phone: Start: 10-29-2020 Lactate dehydrogenase ldh Imola K Osapay Work Phone: Start: 10-29-2020 Procalcitonin (pct) Imo la K [employer] Work Phone: Start: 10-28-2020 Urnls dip stick/tabl et rgnt auto w/o microscopy Andrew Silver Work Phone: Start: 10-28-2020 POCT ARTERIAL Otf A G [facility] Work Phone: Start: 10-28-2020 [...] 10-28-2020 RESPIRATORY PANEL, MOLECULAR, WITH COVID-19 Imola Jeremy Diaz Work Phone: Start: 05-05-2020 Urinalysis HODA WYATT Comment on above: Result Comment: URIN ALYSIS Performed By: #### [id number] #### [place] [id number] Start: 04-08-2020 Urinalysis HODA WYATT Comment on above: Result Comment: URIN ALYSIS Performed By: #### 2 [id number] #### [place] [address] Start: 02-04-2020 Urinalysis HODA WYATT Comment on above: Result Comment: URIN ALYSIS Performed By: #### [id number] #### [place] [address] Start: 01-07-2020 Urinalysis HODA WYATT Comment on above: Result Comment: URIN ALYSIS Performed By: #### [id number] #### [place] [address] Start: 12-10-2019 Urinalysis HODA EASLEY YOSELIN Comment on above: Result Comment: URIN ALYSIS Performed By: #### 2 [id number] #### [place] [address] Start: 11-05-2019 Urinalysis HODA WYATT Comment on above: Result Comment: URIN ALYSIS Performed By: #### 2 [id number] #### [place] [address] Start: 10-08-2019 Urinalysis HODA GOODRICHELIJAH Comment on above: Result Comment: URIN ALYSIS Performed By: #### 2 [id number] #### [place] [address] Start: 09-10-2019 Urinalysis HODA GOODRICHELIJAH Comment on above: Result Comment: URIN ALYSIS Performed By: #### 2 [id number] #### [place] [address] Start: 08-10-2019 Adult depression scr eening assessment Anthony Olivares MD Work Phone: Start: 08-06-2019 Urinalysis HODATERRELL EASLEY YOSELIN Comment on above: Result Comment: URIN ALYSIS Performed By: #### [id number] #### [place] [address] Start: 07-23-2019 Colonoscopy Anthony rosa MD Work Phone: Start: 08-09-2018 Lipid 1996 panel - S ellen or Plasma Luz Daniel MD Work Phone: Urine culture Urine culture Plan of Treatment Date Care Activity Detail Author Start: 12-20-2028 Lipid panel Lipid Screening [facility] Start: 12-20-2026 Diabetes Screening Diabetes Screenin g [facility] Start: 09-16-2025 End: 09-16-2025 Patient encounter procedure 09/16/2025 9:00 AM EST Office Visit [facility] General Rheumatology and Arthritis [address] [place] [address] [address] [place], [place] [phone] Dorota Smith MD [address] [place], [place] [phone] 6 months in office PA [facility] Comment on above: 6 months in office P A Start: 09-14-2025 BP Controlled (<130/80) BP Controlle d (<130/80) [facility] Start: 08-15-2025 End: 08-15-2025 Patient encounter procedure 08/15/2025 2:20 PM EDT Office Visit [facility] [address] [place] [id number] Anthony Olivares MD [address] [place], [place] [phone] f/u [facility] Comment on above: f/u Start: 07-17-2025 BP Controlled (<130/80) BP Controlle d (<130/80) [facility] Start: 07-15-2025 Influenza vaccination Influenza Vacc ine (#1) [facility] Start: 05-23-2025 End: 05-23-2025 Patient encounter procedure 05/23/2025 4:00 PM EDT Office Visit [facility] [address] [place] [id number] Anthony Olivares MD [address] [place], [place] [phone] Virtual f/u per Dr Olivares.I spoke with Nursing Facility where patient is at [facility] Comment on above: Virtual f/u per Dr Leonie herrera.I spoke with Nursing Facility where patient is at Start: 03-20-2025 End: 03-20-2025 Patient encounter procedure 03/20/2025 9:00 AM EDT Office Visit [facility] [address] [place], [place] [phone] Leeann Lopez PA-C [address] [place], [place] [phone] 6 months in office PA [facility] Comment on above: 6 months in office P A Start: 02-26-2025 End: 02-26-2025 Patient encounter procedure 02/26/2025 9:00 AM EDT Appointment Infusion Center [address] [place] [address] [address] Elise Jack, granulomatosis, () Infusion Center Comment on above: Dr Elise Jack, granulomatosis, () Start: 02-20-2025 Covid-19 Vaccine (9 - Pfizer risk ) Covid-19 Vaccine (9 - Pfizer risk ) [facility] Start: 12-20-2024 BP Controlled (<130/80) BP Controlle d (<130/80) [facility] Start: 12-20-2024 Complete blood count Hemoglobin/Timo tocrit [facility] Start: 12-20-2024 Creatinine measurement Serum Creatin ine [facility] Start: 11-20-2024 End: 11-20-2024 Patient encounter procedure 11/20/2024 11:00 AM EST Office Visit [facility] [address] [place] [phone] Anthony Olivares MD [address] [place] [address] follow up in October per Dr Olivares [facility] Comment on above: follow up in per Dr Olivares Start: 11-14-2024 Medicare Advantage Annual Wellness Visit Medicare Advantage Annual Wellness Visit [facility] Start: 10-17-2024 Covid-19 Vaccine () Covid-19 Vaccine () [facility] Start: 09-14-2024 End: 09-14-2024 Patient encounter procedure 09/14/2024 9:00 AM EDT Office Visit [facility] [address] [place], [place] [phone] Dorota Smith MD [address] [place], [place] [phone] RA/Trans from Dr Daniel to [facility] Comment on above: RA/Trans from Dr Ruben welsh to [facility] Start: 08-09-2024 End: 08-09-2024 Patient encounter procedure 08/09/2024 7:00 AM EDT Appointment Infusion Center [address] [place] [address] rituximab, M32.30 elise(RK) Infusion Center Comment on above: rituximab, M32.30 , elise(RK) Start: 07-17-2024 End: 07-17-2024 Patient encounter procedure 07/17/2024 11:20 AM EDT Office Visit [facility] [address] [address] Anthony Olivares MD [address] [place] [address] Vasculitis Renal follow up [facility] Comment on above: Vasculitis Renal fol low up Start: 07-15-2024 Covid-19 Vaccine ( season) Covid-19 Vaccine ( season) [facility] Start: 07-15-2024 Covid-19 Vaccine ( season) Covid-19 Vaccine ( season) [facility] Start: 07-15-2024 Influenza vaccination Influenza Vacc ine (#1) [facility] Start: 05-21-2024 End: 05-21-2024 Patient encounter procedure 05/21/2024 9:20 AM EDT Office Visit [facility] General Rheumatology and Arthritis [address] [place] [address] Dorota Smith MD [address] [place], [place] [phone] RA/Trans from Dr Daniel to [facility] General Rheumatology and Arthritis Comment on above: RA/Trans from Dr Ruben welsh to [facility] Start: 03-09-2024 Lipid panel Lipid Screening [facility] Start: 02-21-2024 PROSTATE CANCER SCREENING DISCUSSION PROSTATE CANCER SCREENING DISCUSSION [facility] Start: 02-21-2024 Prostate specific antigen measurement Prostate Cancer Screening Discussion [facility] Start: 12-20-2023 End: 03-20-2024 25-hydroxyvitamin D3 [Mass/volume] in Serum or Plasma [facility] Work Phone: Comment on above: Expected: 12/20/2023 , Expires: 03/20/2024 Start: 12-12-2023 Covid-19 Vaccine () Covid-19 Vaccine () [facility] Start: 11-14-2023 Behavioral Health Screening Behavioral Health Screening [facility] Start: 11-14-20[address] [facility] [address] [facility] Start: 11-04-2023 Diabetes Screening Diabetes Screenin g [facility] Start: 11-03-2023 BP CONTROLLED (<130/80) BP CONTROLLE D (<130/80) [facility] Start: 09-18-2023 DIABETES SCREEN DIABETES SCREEN [facility] Start: 09-18-2023 Diabetes Screening Diabetes Screenin g [facility] Start: 08-09-2023 Lipid 1996 panel - S ellen or Plasma Lipid Screening [facility] Start: 08-09-2023 LIPID SCREEN LIPID SCREEN [facility] Start: 07-15-2023 Covid-19 Vaccine () Covid-19 Vaccine () [facility] Start: 07-15-2023 Influenza vaccination [facility] Start: 2023 RSV Vaccine (1 - 1-d ose 60+ series) RSV Vaccine (1 - 1-dose 60+ series) [facility] Start: 2023 RSV Vaccine (1 - Ris k 60-74 years 1-dose series) RSV Vaccine (1 - Risk 60-74 years 1-dose series) [facility] Start: 11-14-2022 DEPRESSION ASSESSMENT DEPRESSION ASS ESSMENT [facility] Start: 11-03-2022 End: 11-03-2023 Chronic hepatitis differentiation between hepatitis B and C virus panel - Serum or Plasma HEP REMOTE PANEL BL Lab Routine Granulomatosis with polyangiitis with renal involvement (HCC) Expected: 11/03/2022, Expires: 11/03/2023 [facility] Work Phone: Comment on above: Expected: 11/03/2022 , Expires: 11/03/2023 Start: 07-23-2022 Colonoscopy COLONOSCOPY [facility] Start: 07-23-2022 COLORECTAL CANCER SCREENING COLORECTAL CANCER SCREENING [facility] Start: 07-23-2022 Screening for malign ant neoplasm of colon [facility] Start: 07-15-2022 Influenza vaccination INFLUENZA (#1) [facility] Start: 04-29-2022 COVID-19 VACCINE (6 - Booster for Pfizer series) COVID-19 VACCINE (6 - Booster for Pfizer series) [facility] Start: 01-04-2022 COVID-19 VACCINE (5 - Booster for Pfizer series) COVID-19 VACCINE (5 - Booster for Pfizer series) [facility] Start: 11-14-2021 DEPRESSION ASSESSMENT DEPRESSION ASS ESSMENT [facility] Start: 11-04-2021 Creatinine measurement [facility] Start: 11-04-2021 Potassium monitoring [facility] Start: 11-02-2021 HEMOGLOBIN/HEMATOCRIT HEMOGLOBIN/HEM ATOCRIT [facility] Start: 09-18-2021 SERUM CREATININE SERUM CREATININE Cl [facility] Start: 11-09-2020 Influenza vaccination LUNG CANCER SC REENING [facility] Start: 11-09-2020 Screening for malign ant neoplasm of lung Lung Cancer Screening [facility] Start: 08-10-2020 Adult depression screening assessment DEPRESSION SCREENING [facility] Start: 07-15-2020 Influenza vaccination Flu vaccine (# 1) [facility] Start: 02-21-2020 ANNUAL PCP TEAM WIC SITE COORDINATOR DIPTI DISEASE VISIT ANNUAL PCP TEAM CHRONIC DISEASE VISIT [facility] Start: 07-10-2019 PNEUMOCOCCAL (3 - PP SV23 if available, else PCV20) PNEUMOCOCCAL (3 - PPSV23 if available, else PCV20) [facility] Start: 07-10-2019 PNEUMOCOCCAL (3 - PP SV23 or PCV20) PNEUMOCOCCAL (3 - PPSV23 or PCV20) [facility] Start: 07-10-2019 Pneumococcal vaccination Pneum ococcal Vaccine (3 - PPSV23 or PCV20) [facility] Start: 09-04-2018 Pneumococcal vaccination Pneum ococcal Vaccine (3 of 3 - PPSV23 or PCV20) [facility] Start: 08-16-2014 TWO PNEUMOVAX 5 YEAR S APART PRIOR TO AGE 65 (#2) TWO PNEUMOVAX 5 YEARS APART PRIOR TO AGE 65 (#2) [facility] Start: 2013 SHINGRIX VACCINE (1 of 2) SHINGRIX VACCINE (1 of 2) [facility] Start: 2008 COLOGUARD (FIT-DNA) COLOGUARD (FIT-D NA) [facility] Start: [address] COLONOGRAPHY [facility] Start: 2008 FECAL OCCULT BLOOD FECAL OCCULT BLOO D [facility] Start: 2008 Screening for malign ant neoplasm of colon [facility] Start: 2008 SIGMOIDOSCOPY SIGMOIDOSCOPY [facility] Start: 1982 SHINGRIX VACCINE (1 of 2) SHINGRIX VACCINE (1 of 2) [facility] Start: 1982 Urine microalbumin profile [facility] Start: 1981 Annual PCP Team Gold Charmer dipti Disease Visit Annual PCP Team Chronic Disease Visit [facility] Start: 1981 Anxiety Screening Anxiety Screening [facility] Start: 1981 BP CONTROLLED (<130/80) BP CONTROLLE D (<130/80) [facility] Start: 1981 Depression Screening Depression Scre ening [facility] CBC Auto Differential CBC Auto D ifferential Lab Routine Daily until discontinued starting 11/03/2020, 2 completed [facility], [place] Comment on above: Daily until disconti nued starting 11/03/2020, 2 completed End: 12-19-2024 CBC W Auto Differential panel - Blood CBC + DIFF Lab Routine Stage 3b chronic kidney disease (HCC) Granulomatosis with polyangiitis with renal involvement (HCC) Once per month for 13 Occurrences starting 12/20/2023 until 12/19/2024, 1 completed [facility] Work Phone: Comment on above: Once per month for 1 3 Occurrences starting 12/20/2023 until 12/19/2024, 1 completed End: 05-23-2026 CBC W Auto Differential panel - Blood COMPLETE BLOOD COUNT AND DIFFERENTIAL Lab Routine Granulomatosis with polyangiitis with renal involvement (HCC) Every 2 months for 7 Occurrences starting 05/23/2025 until 05/23/2026 [facility] Comment on above: Every 2 months for 7 Occurrences starting 05/23/2025 until 05/23/2026 End: 12-19-2024 Comprehensive metabolic 2000 panel - Serum or Plasma COMP METABOLIC PANEL Lab Routine Stage 3b chronic kidney disease (HCC) Granulomatosis with polyangiitis with renal involvement (HCC) Once per month for 13 Occurrences starting 12/20/2023 until 12/19/2024, 1 completed [facility] Work Phone: Comment on above: Once per month for 1 3 Occurrences starting 12/20/2023 until 12/19/2024, 1 completed End: 05-23-2026 Comprehensive metabolic 2000 panel - Serum or Plasma COMPREHENSIVE METABOLIC PANEL Lab Routine Granulomatosis with polyangiitis with renal involvement (HCC) Every 2 months for 7 Occurrences starting 05/23/2025 until 05/23/2026 [facility] Work Phone: Comment on above: Every 2 months for 7 Occurrences starting 05/23/2025 until 05/23/2026 Comprehensive Metabo lic Panel w/ Reflex to MG Comprehensive Metabolic Panel w/ Reflex to MG Lab Routine Daily until discontinued starting 10/28/2020, 7 completed [place] Comment on above: Daily until disconti nued starting 10/28/2020, 7 completed Nasal Cannula Oxygen Nasal Cannu la Oxygen Respiratory Care Routine Daily until discontinued starting 10/28/2020 [place] Comment on above: Daily until disconti nued starting 10/28/2020 Nebulizer therapy HHN Treatment Respiratory Care Routine 0600, 1000, 1400, 1800, 2200 until discontinued starting 10/30/2020 [place] Comment on above: 0600, 1000, 1400, 18 00, 2200 until discontinued starting 10/30/2020 Oxygen therapy [[facility] Data Set] Initiate Oxygen Therapy Protocol Respiratory Care Routine Daily until discontinued starting 10/28/2020 [place] Comment on above: Daily until disconti nued starting 10/28/2020 End: 12-19-2024 Phosphate [Mass/volume] in Serum or Plasma PHOSPHORUS INORGANIC Lab Routine Stage 3b chronic kidney disease (HCC) Granulomatosis with polyangiitis with renal involvement (HCC) Once per month for 13 Occurrences starting 12/20/2023 until 12/19/2024, 1 completed [facility] Work Phone: Comment on above: Once per month for 1 3 Occurrences starting 12/20/2023 until 12/19/2024, 1 completed End: 05-23-2026 Phosphate [Mass/volume] in Serum or Plasma PHOSPHORUS INORGANIC Lab Routine Granulomatosis with polyangiitis with renal involvement (HCC) Every 2 months for 7 Occurrences starting 05/23/2025 until 05/23/2026 [facility] Comment on above: Every 2 months for 7 Occurrences starting 05/23/2025 until 05/23/2026 End: 12-19-2024 Protein/Creatinine [Mass Ratio] in Urine PROTEIN CREATININE RATIO Lab Routine Granulomatosis with polyangiitis with renal involvement (HCC) Once per month for 13 Occurrences starting 12/20/2023 until 12/19/2024 [facility] Work Phone: Comment on above: Once per month for 1 3 Occurrences starting 12/20/2023 until 12/19/2024 UA DIP, URINE (POC) UA DIP, URIN E (POC) Lab Routine Screening for genitourinary condition 1 Occurrences starting 11/20/2024 [facility] Work Phone: Comment on above: 1 Occurrences starti ng 11/20/2024 UA DIP, URINE (POC) UA DIP, URIN E (POC) Lab Routine Screening for genitourinary condition 1 Occurrences starting 05/23/2025 [facility] Work Phone: Comment on above: 1 Occurrences starti ng 05/23/2025 End: 12-19-2024 Urinalysis complete panel - Urine URINALYSIS, WITH MICROSCOPIC Lab Routine Granulomatosis with polyangiitis with renal involvement (HCC) Once per month for 13 Occurrences starting 12/20/2023 until 12/19/2024 [facility] Work Phone: Comment on above: Once per month for 1 3 Occurrences starting 12/20/2023 until 12/19/2024 End: 05-23-2026 Urinalysis complete panel - Urine URINALYSIS, WITH MICROSCOPIC Lab Routine Granulomatosis with polyangiitis with renal involvement (HCC) Every 2 months for 7 Occurrences starting 05/23/2025 until 05/23/2026 [facility] Comment on above: Every 2 months for 7 Occurrences starting 05/23/2025 until 05/23/2026 [facility] Immunizations Immunization Date Immunization Notes Care Provider Fa [facility] 08-15-2024 influenza virus vacc ine, unspecified formulation Anthony Olivares MD Work Phone: [facility] 08-15-2023 influenza virus vacc ine, unspecified formulation Dorota Smith MD Work Phone: [facility] 08-18-2021 influenza, injectabl e, quadrivalent, preservative free Anthony Olivares MD Work Phone: [facility] Work Phone: 08-18-2021 influenza virus vacc ine, unspecified formulation Luz Daniel MD Work Phone: [facility] 08-14-2021 COVID-19 vaccine, ag e 12+ yr (UberGrape-Philtro - PURPLE TOP) Anthony Olivares MD Work Phone: [facility] Work Phone: 08-17-2019 influenza, injectabl e, quadrivalent, preservative free Anthony Olivares MD Work Phone: [facility] 08-02-2018 influenza, injectabl e, quadrivalent, preservative free Anthony Olivares MD Work Phone: [facility] 07-10-2018 pneumococcal conjuga te vaccine, 13 valent Anthony Olivares MD Work Phone: [facility] 08-14-2016 Influenza virus vaccine [facility] 08-14-2016 influenza, seasonal, injectable, preservative free Anthony Olivares MD Work Phone: [facility] Work Phone: 07-30-2016 influenza, injectabl e, quadrivalent, contains preservative Anthony Olivares MD Work Phone: [facility] 08-21-2015 influenza, injectabl e, quadrivalent, contains preservative Anthony Olivares MD Work Phone: [facility] 09-27-2014 influenza, seasonal, injectable Anthony Olivares MD Work Phone: [facility] 09-06-2013 influenza virus vacc ine, unspecified formulation Anthony Olivares MD Work Phone: [facility] 09-07-2012 influenza virus vacc ine, unspecified formulation Anthony Olivares MD Work Phone: [facility] Work Phone: 11-24-2010 influenza virus vacc ine, unspecified formulation Anthony Olivares MD Work Phone: [facility] Work Phone: 08-16-2009 influenza virus vacc ine, unspecified formulation Anthony Olivares MD Work Phone: [facility] 08-16-2009 pneumococcal polysaccharide vaccine, 23 valent Anthony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 Directive(s) 08/11/2016 2:31 PM Documents on File Type Date Recorded 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 He had a positive COVID19 test (more [...] 10/28/20 0000 -- -- -- Aminah León [phone] Admitting Physician: Farrukh Diaz MD PCP: No primary care provider on file. Discharging Nurse: [facility] Unit/Room#: 468/4681 Discharging Unit Phone Number: [phone] Emergency Contact: No emergency contact information on [...] Casillas RN 11/05/20 11/12/20 10/14/2020 Documentation in [place] Disease Reporting System of positive COVID - [...] Assisted Dressing Assisted Toileting Independent Feeding Independent Materials Planner/Production Planner Assisted Med Delivery whole Wound Care Documentation [...] Readmission: 20 Discharging to Facility/ Agency Name: [facility] Address: [address] [place] [address] Dialysis Facility (if applicable) Name: Address: Dialysis Schedule: Phone: Fax: Game Design Instructor/Preparation Plant Repairer signature: at12:24 PM EST PHYSICIAN SECTION Prognosis: [...] PM EST Report given to Yesenia at [place]. * Amaris Ibrahim RCP - 11/04/2020 12:15 PM EST [facility] Progress Note SpO2 at [...] Daniel MD - 11/03/2020 6:05 PM EST [facility] Progress Note Subjective/ 55 [...] in remission from renal perspective. No urgent TEST FIXTURE ASSEMBLER indications. Will follow. [facility] * Farrukh Diaz MD - 11/03/2020 1:09 PM EST Hospitalist Progress Note 11/03/2020 1:09 PM [phone]: Please page dc [phone] for patient care issues. [phone]: Please page [facility] night Hospitalist for any [...] of Hospitalist Medicine Inpatient Medical Services PAGER: [phone] * Piyush Daniel MD - 11/02/2020 10:00 [...] 10 mL Intravenous 2 times per day Farrkuh Diaz MD 10mL at 11/02/202010 sodium chloride [...] 3 mg 3 mg Oral Nightly Farrukh iDaz MD 3 mg at 11/02/202009 omega-3 acid [...] remission atleast from renal perspective. No urgent TEST FIXTURE ASSEMBLER indications. Will follow. [facility] * Farrukh Diaz MD - 11/02/2020 3:16 PM EST Hospitalist Progress Note 11/02/2020 3:16 PM [phone]: Please page dc [phone] for patient care issues. [phone]: Please page [facility] Hospitalist for any issues. Subjective: Admit [...] of Hospitalist Medicine Inpatient Medical Services PAGER: [phone] * Piyush Daniel MD - 11/01/2020 8:04 PM EST [facility] Progress Note Subjective/ 55 [...] remission atleast from renal perspective. No urgent TEST FIXTURE ASSEMBLER indications. Will follow. [facility] * Farrukh Diaz MD - 11/01/2020 3:07 PM EST Hospitalist Progress Note 11/01/2020 3:08 PM [phone]: Please page dc [phone] for patient care issues. [phone]: Please page [facility] night Hospitalist for any [...] of Hospitalist Medicine Inpatient Medical Services PAGER: [phone] * Mia Noyola, ENERGY CROP FARMER - 11/01/2020 12:00 PM EST Patient Evaluation [...] EST Hospitalist Progress Note 11/01/2020 11:33 AM [phone]: Please page dc [phone] for patient care issues. [phone]: Please page [facility] Hospitalist for any issues. Subjective: Admit [...] of Hospitalist Medicine Inpatient Medical Services PAGER: [phone] * Bakari Hdz MD - 10/31/2020 9:35 AM EST [facility] Progress Note Subjective/ 55 [...] solution 1 ampule 1 ampule Inhalation Q4H NV Farrukh Diaz MD 1 ampule at 10/30/202226 [...] 6 mg 6 mg Oral Daily Farrukh Diza MD 6 mg at 10/30/20 1037 guaiFENesin-dextromethorphan [...] from renal perspective. D/w IMS. No urgent TEST FIXTURE ASSEMBLER indications. Will follow. [facility] * Farrukh Diaz MD - 10/30/2020 3:50 PM EST Hospitalist Progress Note 10/30/2020 3:50 PM [phone]: Please page dc [phone] for patient care issues. [phone]: Please page [facility] night Hospitalist for any [...] NEGATIVE: No targets were detected by the [facility] Upper Respiratory Pathogens PCR Panel. _ Expected Result: Not Detected The [employer] Upper Respiratory Pathogens PCR Panel can detect [...] management decisions. This assay was developed by [employer] and distributed under an Emergency Use Authorization (EUA) granted by the FDA for the qualitative detection of SARS-CoV-2 nucleic acid. Provider and patient fact sheets can be found at https://www.fda. gov/media/949692/download and https://www.fda.gov/media/664876/download. Assessment / Plan 1. Acute hypoxic respiratory [...] of Hospitalist Medicine Inpatient Medical Services PAGER: [phone] * Bakari Hdz MD - 10/30/2020 10:18 AM EST [facility] Progress Note Subjective/ 55 [...] mL Intravenous 2 times per day Farrukh Daiz MD 10mL at 10/29/202010 sodium chloride flush [...] from renal perspective. D/w IMS. No urgent TEST FIXTURE ASSEMBLER indications. Will follow. [facility] * Jeanie Samuel - 10/30/2020 9:42 AM EST Nutrition rescreen completed. Patient assigned a level 1. * Farrukh Diaz MD - 10/29/2020 5:56 PM EST Hospitalist Progress Note 10/29/2020 5:56 PM [phone]: Please page dc [phone] for patient care issues. [phone]: Please page [facility] Hospitalist for any issues. Subjective: Admit [...] NEGATIVE: No targets were detected by the [facility] Upper Respiratory Pathogens PCR Panel. _ Expected Result: Not Detected The [employer] Upper Respiratory Pathogens PCR Panel can detect [...] management decisions. This assay was developed by [employer] and distributed under an Emergency Use Authorization (EUA) granted by the FDA for the qualitative detection of SARS-CoV-2 nucleic acid. Provider and patient fact sheets can be found at https://www.fda. gov/media/345582/download and https://www.fda.gov/media/096483/download. Assessment / Plan 1. Acute hypoxic respiratory [...] of Hospitalist Medicine Inpatient Medical Services PAGER: [phone] * Shirley Casillas RN - 10/29/2020 10:49 AM EST Documentation in [place] disease Reporting System: * Farrukh Diaz MD - 10/29/2020 9:58 AM EST Patient unable to get CTA chest due to DONNA - will hydrate and if able, will get it at a later time. * Irena Land RN - 10/29/2020 12:48 AM EST Patient moved into private bed [address] Mosley. Patients COVID test came back negative. Dr. Pro nursing supervisor pipe joints made aware. documented in this encounter Assessments Diagnosis Pneumonia due to COVID-19 virus- Primary Hypoxia Hypoxemia Hypokalemia Hypopotassemia Stage 3 chronic kidney disease, unspecified whether stage 3a or 3b CKD Chief Complaint and Reason for Visit Chief Complaint [facility] LAB WOR K [facility] LABWORK [facility] LABWORK F[facility] LABWORK [facility] LAB WORK [facility] LABWORK Chief Complaint FCI LABWORK FCI LABWORK FCI LAB WORK FCI LABWORK FCI LABWORK FCI LABWORK Chief Complaint FCI LABWORK FCI LAB WORK FCI LABWORK FCI LABWORK FCI LABWORK LABWORK FCI LABWORK Chief Complaint FCI LABWORK FCI LAB WORK FCI LABWORK FCI LABWORK FCI LABWORK LABWORK FCI LABWORK LABWORK Chief Complaint FCI LAB WOR K FCI LABWORK FCI LABWORK FCI LABWORK LABWORK FCI LABWORK LABWORK LABWORK Chief Complaint FCI LABWORK FCI LABWORK LABWORK FCI LABWORK LABWORK FCI LABWORK LABWORK FCI LAB WORK LABWORK Chief Complaint LABWORK FCI LABWORK LABWORK FCI LABWORK LABWORK FCI LAB WORK LABWORK LABWORK LABWORK Chief Complaint LABWORK FCI LABWORK LABWORK FCI LABWORK LABWORK FCI LAB WORK LABWORK LABWORK LABWORK FCI LABWORK Chief Complaint FCI LABWORK LABWORK FCI LABWORK LABWORK FCI LAB WORK LABWORK LABWORK LABWORK FCI LABWORK FCI LABWORK Chief Complaint LABWORK LABWORK LABWORK FCI LABWORK FCI LABWORK FCI LABWORK Chief Complaint LABWORK LABWORK LABWORK FCI LABWORK FCI LABWORK LABWORK FCI LABWORK Chief Complaint LABWORK LABWORK FCI LABWORK FCI LABWORK LABWORK FCI LABWORK FCI LAB WORK FCI LABWORK Chief Complaint LABWORK FCI LABWORK FCI LABWORK LABWORK FCI LABWORK FCI LAB WORK FCI LABWORK FCI LABWORK Chief Complaint LABWORK FCI LABWORK FCI LAB WORK FCI LABWORK FCI LABWORK LABWORK FCI LAB WORK LABWORK Chief Complaint FCI LABWORK FCI LAB WORK FCI LABWORK FCI LABWORK LABWORK FCI LAB WORK LABWORK LABWORK Chief Complaint FCI LABWORK FCI LAB WORK FCI LABWORK FCI LABWORK LABWORK FCI LAB WORK LABWORK LABWORK FCI LAB WORK Chief Complaint FCI LABWORK LABWORK FCI LAB WORK LABWORK LABWORK FCI LAB WORK FCI LABWORK Chief Complaint LABWORK FCI LAB WORK LABWORK LABWORK FCI LAB WORK FCI LABWORK LABWORK FCI LABWORK Chief Complaint FCI LAB WOR K LABWORK LABWORK FCI LAB WORK FCI LABWORK LABWORK FCI LABWORK LABWORK Chief Complaint FCI LAB WOR K LABWORK LABWORK FCI LAB WORK FCI LABWORK LABWORK FCI LABWORK LABWORK FCI LAB WORK Chief Complaint LABWORK LABWORK FCI LAB WORK FCI LABWORK LABWORK FCI LABWORK LABWORK LABWORK FCI LAB WORK FCI LABWORK Chief Complaint LABWORK FCI LAB WORK FCI LABWORK LABWORK FCI LABWORK LABWORK LABWORK FCI LAB WORK FCI LABWORK LABWORK Chief Complaint FCI LAB WOR K FCI LABWORK LABWORK FCI LABWORK LABWORK LABWORK FCI LAB WORK FCI LABWORK LABWORK LABWORK Chief Complaint LABWORK LABWORK FCI LABWORK FCI LABWORK LABWORK LABWORK FCI LAB WORK FCI LABWORK Chief Complaint FCI LABWORK FCI LABWORK LABWORK LABWORK FCI LAB WORK FCI LABWORK FCI LAB WORK LABWORK Chief Complaint LABWORK LABWORK FCI LAB WORK FCI LABWORK FCI LAB WORK LABWORK LABWORK Chief Complaint FCI LAB WOR K FCI LABWORK FCI LAB WORK LABWORK LABWORK FCI LABWORK FCI LABWORK Chief Complaint LABWORK LABWORK FCI LABWORK FCI LABWORK LABWORK Chief Complaint LABWORK LABWORK FCI LABWORK FCI LABWORK LABWORK FCI LAB WORK Chief Complaint LABWORK LABWORK FCI LABWORK FCI LABWORK LABWORK FCI LAB WORK LABWORK Chief Complaint FCI LABWORK FCI LABWORK LABWORK FCI LAB WORK LABWORK FCI LABWORK Chief Complaint FCI LABWORK FCI LABWORK LABWORK FCI LAB WORK LABWORK FCI LABWORK FCI LAB WORK Chief Complaint LABWORK FCI LAB WORK LABWORK FCI LABWORK FCI LAB WORK FCI LAB WORK LABWORK Chief Complaint FCI LAB WOR K LABWORK FCI LABWORK FCI LAB WORK FCI LAB WORK LABWORK LABWORK Chief Complaint FCI LABWORK FCI LAB WORK FCI LAB WORK LABWORK LABWORK LABWORK Chief Complaint Admit Date [facility]CI LAB WORK September 27 5:00am FCI LAB WORK November 15, 2024 5:00am [facility] LAB WORK November 27, 2024 5:00am [facility] LAB WORK December 28 5:00am [facility] LAB WORK January 02 5:00am [facility] LAB WORK January 03 6:10am Chief Complaint Admit Date [facility]CI LAB WORK November 15, 2024 5:00am [facility] LAB WORK November 27, 2024 5:00am [facility] LAB WORK December 28 5:00am [facility] LAB WORK January 02 5:00am [facility] LAB WORK January 03 6:10am [facility] LAB WORK January 25, 2025 5 :00am Chief Complaint Admit Date [facility] LAB WORK November 15, 2024 5:00am [facility] LAB WORK November 27, 2024 5:00am [facility] LAB WORK December 28 5:00am [facility] LAB WORK January 02 5:00am [facility] LAB WORK January 03 6:10am [facility] January 25, 2025 5 :00am [facility] January 30, 2025 5 :00am Chief Complaint Admit Date [facility] November 15, 2024 5:00am [facility] November 27, 2024 5:00am [facility] December 28 5:00am [facility] January 02 5:00am [facility] January 03 6:10am [facility] January 25, 2025 5 :00am [facility] January 30, 2025 5 :00am LABWORKJ February 06, 2025 5:0 0am LABWORK February 11, 2025 5:0 0am Chief Complaint Admit Date [facility] November 27, 2024 5:00am [facility] December 28 5:00am [facility] January 02 5:00am [facility] January 03 6:10am [facility] January 25, 2025 5 :00am [facility] January 30, 2025 5 :00am LABWORKJ February 06, 2025 5:0 0am LABWORK February 11, 2025 5:0 0am LABWORK February 27, 2025 5:0 0am Chief Complaint Admit Date [facility] November 27, 2024 5:00am [facility] December 28 5:00am [facility] January 02 5:00am [facility] January 03 6:10am [facility] January 25, 2025 5 :00am [facility] January 30, 2025 5 :00am LABWORKJ February 06, 2025 5:0 0am LABWORK February 11, 2025 5:0 0am [facility] February 25, 2025 5 :00am LABWORK February 27, 2025 5:0 0am Chief Complaint Admit Date [facility] December 28 5:00am [facility] January 02 5:00am [facility] January 03 6:10am [facility] January 25, 2025 5 :00am [facility] January 30, 2025 5 :00am LABWORKJ February 06, 2025 5:0 0am LABWORK February 11, 2025 5:0 0am [facility] February 25, 2025 5 :00am LABWORK February 27, 2025 5:0 0am [facility] March 04, 2025 1 0:30pm Chief Complaint Admit Date [facility] January 25, 2025 5 :00am [facility] January 30, 2025 5 :00am LABWORKJ February 06, 2025 5:0 0am LABWORK February 11, 2025 5:0 0am [facility] February 25, 2025 5 :00am LABWORK February 27, 2025 5:0 0am [facility] March 04, 2025 1 0:30pm LABWORK March 27, 2025 5:00a m [facility] April 01, 2025 5:0 0am Chief Complaint Admit Date [facility] April 24, 2025 5: 00am LABWORK April 26, 2025 5:00 am [facility] May 02, 2025 5: 00am [facility] May 24, 2025 5: 00am [facility] May 26, 2025 8: 00pm [facility] May 28, 2025 5: 00am [facility]OW[facility] June 05, 2025 5:00 am LABWORK June 19, 2025 5:0 0am LABWORK June 20, 2025 5:0 0am [facility] June 27, 2025 5:00am [facility] July 01, 2025 6:38am [facility] July 02, 2025 5:00am LABOWRK July 29, 2025 5:00am Chief Complaint Admit Date [facility] April 24, 2025 5: 00am LABWORK April 26, 2025 5:00 am [facility] May 02, 2025 5: 00am [facility] May 24, 2025 5: 00am [facility] May 26, 2025 8: 00pm [facility] May 28, 2025 5: 00am [facility] June 05, 2025 5:00 am LABWORK June 19, 2025 5:0 0am LABWORK June 20, 2025 5:0 0am [facility] June 27, 2025 5:00am [facility] July 01, 2025 6:38am [facility] July 02, 2025 5:00am LABOWRK July 29, 2025 5:00am [facility] August 02 5:00am LABWORK August [...] skin eruption Procedures CONSULT TO DERMATOLOGY OFFICE/OUTPATIENT [facility] 60 MINUTES Dorota Smith MD [address] [facility] [address] [place] [address] Referral ID Status Reason Start Date Expiration Date Visits Requested Visits Authorized [id number] Authorized PCP Requested Referral 09/14/2024 09/14/2025 1 1 Additional Source Comments INFORMATION SOURCE (unrecogn ized section and content) DATE CREATED AUTHOR 06/07/2018 [facility] DATE CREATED AUTHOR AUTHOR'S ORGANIZ ATION 04/02/2019 [facility] DATE CREATED AUTHOR AUTHOR'S ORGANIZ ATION 03/30/2020 [facility] DATE CREATED AUTHOR AUTHOR'S ORGANIZ ATION 08/05/2020 [facility] DATE CREATED AUTHOR AUTHOR'S ORGANIZ ATION 11/21/2020 [facility] DATE CREATED AUTHOR AUTHOR'S ORGANIZ ATION 09/18/2024 [facility] DATE CREATED AUTHOR AUTHOR'S ORGANIZ ATION 08/20/2025 [facility] DATE CREATED AUTHOR AUTHOR'S ORGANIZ ATION 08/29/2025 [facility] DATE CREATED AUTHOR AUTHOR'S ORGANIZ ATION 09/19/2025 [facility] (unrecognized sect ion and content) No Status Records FoundNo Status Records FoundNo Status Records FoundNo Status Records FoundNo Status Records FoundNo Status Records Found Reason for Visit (unrecogniz ed section and content) Reason Comments Infusion Rituximab Specialty Diagnoses / Procedures Referred By Ulises duncan Referred To Contact Hypertension and Nephrology / Kidney Medicine Diagnoses Rheumatoid arthritis without rheumatoid factor, right hand Rheumatoid arthritis without rheumatoid factor, left hand Rituximab 1,000mg per Staff Message Procedures INJ RUXIENCE, 10 MG IV RITUXIMAB Anthony Olivares MD [address] [place] [address] 1, Kidney Med Main Infusion Chair [address] [place] [address] Referral ID Status Reason Start Date Expiration Date V isits Requested Visits Authorized [id number] Authorized 03/31/2022 11/13/2022 99 99 Reason Comments Shortness of Breath Reason Comments Follow Up Reason Comments Infusion iv rituximab Reason Comments Radio Main J1 Specialty Diagnoses / Procedures Referred By Ulises duncan Referred To Contact XR IMAGING Diagnoses Chronic pain of right knee Procedures XR KNEE LIMITED 2V AP/LAT RIGHT RADIOLOGIC EXAMINATION KNEE 1/2 VIEWS Luz Daniel MD [address] [address] Xr Imaging Referral ID Status Reason Start Date Expiration Date V isits Requested Visits Authorized [id number] Closed Auto-Generate d Referral 02/26/2022 03/28/2023 1 1 Reason Comments Rheumatoid Arthritis Reason Comments Follow Up RA- hands, stiff and swollen Reason Comments NO SHOW Reason Comments Patient Update Reason Comments Appointment Specialty Diagnoses / Procedures Referred By Ulises duncan Referred To Contact Diagnoses 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) Procedures INJ RUXIENCE, 10 MG Anthony Olivares MD [address] [place] [address] Infusion [facility] [place] [address] [place] [address] Referral ID Status Reason Start Date Expiration Date V isits Requested Visits Authorized [id number] Authorized 12/27/2023 12/29/2024 24 24 Reason Comments [...] or prosecute any alcohol or drug abuse patient.[facility] the event this information is protected by the Federal Confidentiality of Alcohol and Drug Abuse Patient Records regulations: The Federal rules restrict any use of the information to criminally investigate or prosecute any alcohol or drug abuse patient.[facility] the event this information is protected by the Federal Confidentiality of Alcohol and Drug Abuse Patient Records regulations: The Federal rules restrict any use of the information to criminally investigate or prosecute any alcohol or drug abuse patient.[facility] the event this information is protected by the Federal Confidentiality of Alcohol and Drug Abuse Patient Records regulations: The Federal rules restrict any use of the information to criminally investigate or prosecute any alcohol or drug abuse patient.[facility] the event this information is protected by the Federal Confidentiality of Alcohol and Drug Abuse Patient Records regulations: The Federal rules restrict any use of the information to criminally investigate or prosecute any alcohol or drug abuse patient.[facility] the event this information is protected by the Federal Confidentiality of Alcohol and Drug Abuse Patient Records regulations: The Federal rules restrict any use of the information to criminally investigate or prosecute any alcohol or drug abuse patient.[facility] the event this information is protected by the Federal Confidentiality of Alcohol and Drug Abuse Patient Records regulations: The Federal rules restrict any use of the information to criminally investigate or prosecute any alcohol or drug abuse patient.[facility] the event this information is protected by the Federal Confidentiality of Alcohol and Drug Abuse Patient Records regulations: The Federal rules restrict any use of the information to criminally investigate or prosecute any alcohol or drug abuse patient.[facility] the event this information is protected by the Federal Confidentiality of Alcohol and Drug Abuse Patient Records regulations: The Federal rules restrict any use of the information to criminally investigate or prosecute any alcohol or drug abuse patient.[facility] the event this information is protected by the Federal Confidentiality of Alcohol and Drug Abuse Patient Records regulations: The Federal rules restrict any use of the information to criminally investigate or prosecute any alcohol or drug abuse patient.[facility] the event this information is protected by the Federal Confidentiality of Alcohol and Drug Abuse Patient Records regulations: The Federal rules restrict any use of the information to criminally investigate or prosecute any alcohol or drug abuse patient.[facility] the event this information is protected by the Federal Confidentiality of Alcohol and Drug Abuse Patient Records regulations: The Federal rules restrict any use of the information to criminally investigate or prosecute any alcohol or drug abuse patient.[facility] the event this information is protected by the Federal Confidentiality of Alcohol and Drug Abuse Patient Records regulations: The Federal rules restrict any use of the information to criminally investigate or prosecute any alcohol or drug abuse patient.[facility] the event this information is protected by the Federal Confidentiality of Alcohol and Drug Abuse Patient Records regulations: The Federal rules restrict any use of the information to criminally investigate or prosecute any alcohol or drug abuse patient.[facility] the event this information is protected by the Federal Confidentiality of Alcohol and Drug Abuse Patient Records regulations: The Federal rules restrict any use of the information to criminally investigate or prosecute any alcohol or drug abuse patient.[facility] the event this information is protected by the Federal Confidentiality of Alcohol and Drug Abuse Patient Records regulations: The Federal rules restrict any use of the information to criminally investigate or prosecute any alcohol or drug abuse patient.[facility] the event this information is protected by the Federal Confidentiality of Alcohol and Drug Abuse Patient Records regulations: The Federal rules restrict any use of the information to criminally investigate or prosecute any alcohol or drug abuse patient.[facility] the event this information is protected by the Federal Confidentiality of Alcohol and Drug Abuse Patient Records regulations: The Federal rules restrict any use of the information to criminally investigate or prosecute any alcohol or drug abuse patient.[facility] the event this information is protected by the Federal Confidentiality of Alcohol and Drug Abuse Patient Records regulations: The Federal rules restrict any use of the information to criminally investigate or prosecute any alcohol or drug abuse patient.[facility]In the event this information is protected by the Federal Confidentiality of Alcohol and Drug Abuse Patient Records regulations: The Federal rules restrict any use of the information to criminally investigate or prosecute any alcohol or drug abuse patient.[facility] the event this information is protected by the Federal Confidentiality of Alcohol and Drug Abuse Patient Records regulations: The Federal rules restrict any use of the information to criminally investigate or prosecute any alcohol or drug abuse patient.[facility] the event this information is protected by the Federal Confidentiality of Alcohol and Drug Abuse Patient Records regulations: The Federal rules restrict any use of the information to criminally investigate or prosecute any alcohol or drug abuse patient.[facility] the event this information is protected by the Federal Confidentiality of Alcohol and Drug Abuse Patient Records regulations: The Federal rules restrict any use of the information to criminally investigate or prosecute any alcohol or drug abuse patient.[facility] the event this information is protected by the Federal Confidentiality of Alcohol and Drug Abuse Patient Records regulations: The Federal rules restrict any use of the information to criminally investigate or prosecute any alcohol or drug abuse patient.[facility] the event this information is protected by the Federal Confidentiality of Alcohol and Drug Abuse Patient Records regulations: The Federal rules restrict any use of the information to criminally investigate or prosecute any alcohol or drug abuse patient.[facility]In the event this information is protected by the Federal Confidentiality of Alcohol and Drug Abuse Patient Records regulations: The Federal rules restrict any use of the information to criminally investigate or prosecute any alcohol or drug abuse patient.[facility] the event this information is protected by the Federal Confidentiality of Alcohol and Drug Abuse Patient Records regulations: The Federal rules restrict any use of the information to criminally investigate or prosecute any alcohol or drug abuse patient.[facility]In the event this information is protected by the Federal Confidentiality of Alcohol and Drug Abuse Patient Records regulations: The Federal rules restrict any use of the information to criminally investigate or prosecute any alcohol or drug abuse patient.[facility]In the event this information is protected by the Federal Confidentiality of Alcohol and Drug Abuse Patient Records regulations: The Federal rules restrict any use of the information to criminally investigate or prosecute any alcohol or drug abuse patient.[facility]In the event this information is protected by the Federal Confidentiality of Alcohol and Drug Abuse Patient Records regulations: The Federal rules restrict any use of the information to criminally investigate or prosecute any alcohol or drug abuse patient.[facility]In the event this information is protected by the Federal Confidentiality of Alcohol and Drug Abuse Patient Records regulations: The Federal rules restrict any use of the information to criminally investigate or prosecute any alcohol or drug abuse patient.[facility]In the event this information is protected by the Federal Confidentiality of Alcohol and Drug Abuse Patient Records regulations: The Federal rules restrict any use of the information to criminally investigate or prosecute any alcohol or drug abuse patient.[facility]In the event this information is protected by the Federal Confidentiality of Alcohol and Drug Abuse Patient Records regulations: The Federal rules restrict any use of the information to criminally investigate or prosecute any alcohol or drug abuse patient.[facility]In the event this information is protected by the Federal Confidentiality of Alcohol and Drug Abuse Patient Records regulations: The Federal rules restrict any use of the information to criminally investigate or prosecute any alcohol or drug abuse patient.[facility] HospitalIn the event this information is protected by the Federal Confidentiality of Alcohol and Drug Abuse Patient Records regulations: The Federal rules restrict any use of the information to criminally investigate or prosecute any alcohol or drug abuse patient.[facility] Care Teams (unrecognized sec tion and content) Multicultural Manager Relationship Specialty Start Date End Date Elgin Bal MD [address] [place], [place] [id number] PCP - General Family Practice 12/25/12 Anthony Olivares MD [address] [place], [place] [id number] Damage Prevention Coordinator Nephrology 03/19/21 Anthony Olivares MD [address] [place] [address] Primary Staff Physician Nephrology 12/10/21 Multicultural Manager Relationship Specialty Start Date End Date Elgin Bal MD [address] [place], [place] [address] PCP - General Family Practice 12/25/12 Anthony Olivares MD [address] [place] [address] Damage Prevention Coordinator Nephrology 03/19/21 Anthony Olivares MD [address] [place] [address] Primary Staff Physician Nephrology 12/10/21 Multicultural Manager Relationship Specialty Start Date End Date Elgin Bal MD [address] [place] [address] PCP - General Family Practice 12/25/12 Anthony Olivares MD [address] [place] [address] Damage Prevention Coordinator Nephrology 03/19/21 Anthony Olivares MD [address] [place] [address] Primary Staff Physician Nephrology 12/10/21 Multicultural Manager Relationship Specialty Start Date End Date Elgin Bal MD [address] [place] [address] PCP - General Family Practice 12/25/12 Anthony Olivares MD [address] [place] [address] Damage Prevention Coordinator Nephrology 03/19/21 Anthony Olivares MD [address] [place] [address] Primary Staff Physician Nephrology 12/10/21 Multicultural Manager Relationship Specialty Start Date End Date Elgin Bal MD [address] [place] [address] PCP - General Family Practice 12/25/12 Anthony Olivares MD [address] [place] [address] Damage Prevention Coordinator Nephrology 03/19/21 Anthony Olivares MD [address] [place] [address] Primary Staff Physician Nephrology 12/10/21 Multicultural Manager Relationship Specialty Start Date End Date Elgin Bal MD [address] [place] [address] PCP - General Family Practice 12/25/12 Anthony Olivares MD [address] [place] [address] Damage Prevention Coordinator Nephrology 03/19/21 Anthony Olivares MD [address] [place] [address] Primary Staff Physician Nephrology 12/10/21 Multicultural Manager Relationship Specialty Start Date End Date Elgin Bal MD [address] [place] [address] PCP - General Family Medicine 12/25/12 Anthony Olivares MD [address] [place] [address] Damage Prevention Coordinator Nephrology 03/19/21 Anthony Olivares MD [address] [place] [address] Primary Staff Physician Nephrology 12/10/21 Multicultural Manager Relationship Specialty Start Date End Date Elgin Bal MD [address] [place] [address] PCP - General Family Medicine 12/25/12 Anthony Olivares MD [address] [place] [address] Damage Prevention Coordinator Nephrology 03/19/21 Anthony Olivares MD [address] [place] [address] Primary Staff Physician Nephrology 12/10/21 Multicultural Manager Relationship Specialty Start Date End Date Elgin Bal MD [address] [place] [address] PCP - General Family Medicine 12/25/12 Anthony Olivares MD [address] [place], [place] [id number] Damage Prevention Coordinator Nephrology 03/19/21 Anthony Olivares MD [address] [place], [place] [id number] Primary Staff Physician Nephrology 12/10/21 Multicultural Manager Relationship Specialty Start Date End Date Elgin Bal MD [address] [place], [place] [id number] PCP - General Family Medicine 12/25/12 Anthony Olivares MD [address] [place] [address] Damage Prevention Coordinator Nephrology 03/19/21 Anthony Olivares MD [address] [place] [address] Primary Staff Physician Nephrology 12/10/21 [...] CHANDLER Attending Provider, Referring Prov ider Active Multicultural Manager Relationship Specialty Start Date End Date Elgin Bal MD [address] [place] [address] PCP - General Family Medicine 12/25/12 Anthony Olivares MD [address] [place] [address] Damage Prevention Coordinator Nephrology 03/19/21 Anthony Olivares MD [address] [place] [address] Primary Staff Physician Nephrology 12/10/21 Team Status: Inactive Member Role Status Dates Dr. Elgin Bal MD Primary Care Provider Active Dr. Alfredo Phipps MD Attending Provider Active Team Status: Active Member Role Status Dates Dr. Elgin Bal MD Primary Care Provider Active Adam CHANDLER Attending Provider, Referring Prov ider Active Multicultural Manager Relationship Specialty Start Date End Date Elgin Bal MD [address] [place], [place] [address] PCP - General Family Medicine 12/25/12 Anthony Olivares MD [address] [place] [address] Damage Prevention Coordinator Nephrology 03/19/21 Anthony Olivares MD [address] [place] [address] Primary Staff Physician Nephrology 12/10/21 Multicultural Manager Relationship Specialty Start Date End Date Elgin Bal MD [address] [place] [address] PCP - General Family Medicine 12/25/12 Anthony Olivares MD [address] [place] [address] Damage Prevention Coordinator Nephrology 03/19/21 Anthony Olivares MD [address] [place] [address] Primary Staff Physician Nephrology 12/10/21 Multicultural Manager Relationship Specialty Start Date End Date Alfredo Phipps MD [address] [address] PCP - General Internal Medicine 10/19/23 Anthony Olivares MD [address] [place] [address] Damage Prevention Coordinator Nephrology 03/19/21 Anthony Olivares MD [address] [place] [address] Primary Staff Physician Nephrology 12/10/21 Multicultural Manager Relationship Specialty Start Date End Date Alfredo Phipps MD [address] [facility] [address] [place] [address] PCP - General Internal Medicine 10/19/23 Anthony Olivares MD [address] [place] [address] Damage Prevention Coordinator Nephrology 03/19/21 Anthony Olivares MD [address] [place] [address] Primary Staff Physician Nephrology 12/10/21 Multicultural Manager Relationship Specialty Start Date End Date Alfredo Phipps MD [address] [place] [address] [place] [address] PCP - General Internal Medicine 10/19/23 Anthony Olivares MD [address] [place] [address] Damage Prevention Coordinator Nephrology 03/19/21 Anthony Olivares MD [address] [place] [address] Primary Staff Physician Nephrology 12/10/21 Multicultural Manager Relationship Specialty Start Date End Date Alfredo Phipps MD [address] [facility] [address] [place] [address] PCP - General Internal Medicine 10/19/23 Anthony Olivares MD [address] [place] [address] Damage Prevention Coordinator Nephrology 03/19/21 Anthony Olivares MD [address] [place] [address] Primary Staff Physician Nephrology 12/10/21 Multicultural Manager Relationship Specialty Start Date End Date Alfredo Phipps MD [address] [facility] [address] [place] [address] PCP - General Internal Medicine 10/19/23 Anthony Olivares MD [address] [place] [address] Damage Prevention Coordinator Nephrology 03/19/21 Anthony Olivares MD [address] [place] [address] Primary Staff Physician Nephrology 12/10/21 Multicultural Manager Relationship Specialty Start Date End Date Alfredo Phipps MD [address] [facility] [place] [address] [place] [address] PCP - General Internal Medicine 10/19/23 Anthony Olivares MD [address] [place] [address] Damage Prevention Coordinator Nephrology 03/19/21 Anthony Olivares MD [address] [place] [address] Primary Staff Physician Nephrology 12/10/21 Multicultural Manager Relationship Specialty Start Date End Date Alfredo Phipps MD [address] [facility] [address] [place] [address] PCP - General Internal Medicine 10/19/23 Anthony Olivares MD [address] [place] [address] Damage Prevention Coordinator Nephrology 03/19/21 Anthony Olivares MD [address] [place] [address] Primary Staff Physician Nephrology 12/10/21 Multicultural Manager Relationship Specialty Start Date End Date Alfredo Phipps MD [address] [facility] [address] [place] [address] PCP - General Internal Medicine 10/19/23 Anthony Olivares MD [address] [place] [address] Damage Prevention Coordinator Nephrology 03/19/21 Anthony Olivares MD [address] [place] [address] Primary Staff Physician Nephrology 12/10/21 Multicultural Manager Relationship Specialty Start Date End Date Alfredo Phipps MD [address] [facility] [address] [place] [address] PCP - General Internal Medicine 10/19/23 Anthony Olivares MD [address] [place] [address] Damage Prevention Coordinator Nephrology 03/19/21 Anthony Olivares MD [address] [place] [address] Primary Staff Physician Nephrology 12/10/21 Multicultural Manager Relationship Specialty Start Date End Date Alfredo Phipps MD [address] [facility] [place] [address] [place] [address] PCP - General Internal Medicine 10/19/23 Anthony Olivares MD [address] [place] [address] Damage Prevention Coordinator Nephrology 03/19/21 Anthony Olivares MD [address] [place] [address] Primary Staff Physician Nephrology 12/10/21 Multicultural Manager Relationship Specialty Start Date End Date Alfredo Phipps MD [address] [facility] [address] [place] [address] PCP - General Internal Medicine 10/19/23 Anthony Olivares MD [address] [place] [address] Damage Prevention Coordinator Nephrology 03/19/21 Anthony Olivares MD [address] [place] [address] Primary Staff Physician Nephrology 12/10/21 Multicultural Manager Relationship Specialty Start Date End Date Alfredo Phipps MD [address] [facility] [address] [place] [address] PCP - General Internal Medicine 10/19/23 Anthony Olivares MD [address] [place] [address] Damage Prevention Coordinator Nephrology 03/19/21 Anthony Olivares MD [address] [place] [address] Primary Staff Physician Nephrology 12/10/21 Multicultural Manager Relationship Specialty Start Date End Date Alfredo Phipps MD [address] [facility] [address] [place] [address] PCP - General Internal Medicine 10/19/23 Anthony Olivares MD [address] [place] [address] Damage Prevention Coordinator Nephrology 03/19/21 Anthony Olivares MD [address] [place] [address] Primary Staff Physician Nephrology 12/10/21 Multicultural Manager Relationship Specialty Start Date End Date Alfredo Phipps MD [address] [place] [address] [place] [address] PCP - General Internal Medicine 10/19/23 Anthony Olivares MD [address] [place] [address] Damage Prevention Coordinator Nephrology 03/19/21 Anthony Olivares MD [address] [place] [address] Primary Staff Physician Nephrology 12/10/21 [...] January 30, 2025 End: January 30, 2025 Multicultural Manager Relationship Specialty Start Date End Date Alfredo Phipps MD [address] [facility] [address] [place] [address] PCP - General Internal Medicine 10/19/23 Anthony Olivares MD [address] [place] [address] Damage Prevention Coordinator Nephrology 03/19/21 Anthony Olivares MD [address] [place] [id number] Primary Staff Physician Nephrology 12/10/21 Team Status: [...] Role/Relationship Status Dates Dr. Elign Bal MD Family Provider Active Dr. Elgin [...] Provider Active St art: May 02, 2025 Multicultural Manager Relationship Specialty Start Date End Date Alfredo Phipps MD [address] [facility] [address] [place] [address] PCP - General Internal Medicine 10/19/23 Anthony Olivares MD [address] [place] [address] Damage Prevention Coordinator Nephrology 03/19/21 Anthony Olivares MD [address] [place] [address] Primary Staff Physician Nephrology 12/10/21 Multicultural Manager Relationship Specialty Start Date End Date Alfredo Phipps MD [address] [facility] [address] [place] [address] PCP - General Internal Medicine 10/19/23 Anthony Olivares MD [address] [place] [address] Damage Prevention Coordinator Nephrology 03/19/21 Anthony Olivares MD [address] [place], [place] [id number] Primary Staff Physician Nephrology 12/10/21 Multicultural Manager Relationship Specialty Start Date End Date Alfredo Phipps MD [address] [facility] [address] [place] [address] PCP - General Internal Medicine 10/19/23 Anthony Olivares MD [address] [place] [address] Damage Prevention Coordinator Nephrology 03/19/21 Anthony Olivares MD [address] [place], [place] [id number] Primary Staff Physician Nephrology 12/10/21 Team Status: [...] BE BASED ON THE PRIMARY CLINICAL RECORDS. [employer] [facility]. provides no warranty or guarantee of the accuracy or completeness of information in this document.
[2025-10-28 09:03] LABS: Uric Acid 5.4 mg/dL (3.5-7.2)
== END ==
LOC: OLS.SANC 05:00
PROVIDERS: PCP Family Medicine; Visit Provider Family Medicine
DX: N18.30 Chronic kidney disease, stage 3 unspecified (principal)
CPT/HCPCS: 36415; 84550

== ENCOUNTER → 2025-11-01 05:00 | Outpatient (REF) | payer MEDICARE, MEDICAID, SELFPAY ==
--- OUTSIDE RECORDS SUMMARY | 2025-11-01 04:36 | XMS RPT_ITS | CCD ---
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 percentageOrd ered By: Alfredo Phipps on 08-09-2025 HbA1c (Bld) [Mass fraction] 6.4 % High <5.7 [facility] Comment on above: Normal < 5.7 % Predi abetic 5.7 - 6.4 % Diabetic >or= 6.5 % Please note range changes. Lithiumon 08-02-2025 LI 0.61 mmol/L Normal 0.60-1.20 [facility] Comment on above: Order Comment: 111-2 Performed By: #### L 500.4050, L501.2300, L501.9060, L100.0100 #### [facility] [address] [place], [place], [address] Vitamin D,25 Hydroxyon 07-31 Vitamin D 25-OH 33.6 ng/mL Normal 30-100 [facility] Comment on above: Order Comment: 111-2 Result Comment: Moriah min D Status Deficiency: <20 ng/mL (50nmol/L) Insufficiency: 20-30 ng/mL (50-75 nmol/L) Sufficiency: 30-100 ng/mL (75-250 nmol/L) Toxicity: >100 ng/mL (>250 nmol/L) Performed By: #### L 500.4050, L501.2300, L501.9060, L100.0100 #### [facility] [address] [place], [place], [address] Absolute lymphocyte countOrd ered By: Alfredo Phipps on 07-29-2025 Lymphocytes Auto (Unsp spec) [#/Vol] 1.68 10*3/uL 0.83-4.51 [facility] Absolute neutrophil countOrd ered By: Alfredo Phipps on 07-29-2025 Neutrophils (Bld) [#/Vol] 5.6 10*3/uL 2.0-7.7 [facility] Anion gap in Serum or Plasma Ordered By: Alfredo Phipps on 07-29-2025 Anion gap [Moles/Vol] 10 mmol/L 03-28 [facility] Automated lymphocyte count a s percentage of total leukocytesOrdered By: Alfredo Phipps on 07-29-2025 Lymphocytes/100 WBC Auto (Unsp spec) 18.7 % Low - [facility] BUN/creatinine ratioOrdered By: Alfredo Phipps on 07-29-2025 Urea nitrogen/Creatinine [Mass ratio] 11.1 mg/mg - [facility] Basophil percentageOrdered B y: Alfredo Phipps on 09-15-2025 Basophils/100 WBC (Bld) 1.2 % High 0-1 [facility] Bilirubin, totalOrdered By: Alfredo Phipps on 07-29-2025 Bilirubin [Mass/Vol] 0.15 mg/dL 0.00-1.30 [facility] CBC W/Diff, Automatedon 07-15 Absolute Lymph 1.68 X10 3/uL Normal 0.83-4.51 [facility] Comment on above: Order Comment: 111-2 Performed By: #### L 500.4050, L501.2300, L501.9060, L100.0100 #### [facility] [address] [place], [address] Absolute Neut 5.6 X10 3/uL Normal 2.0-7.7 [facility] Comment on above: Order Comment: 111-2 Performed By: #### L 500.4050, L501.2300, [id number], L100.0100 #### [facility] [address] [place], [address] Basophils/100 WBC (Bld) 1.2 % High 0-1 [facility] Comment on above: Order Comment: 111-2 Performed By: #### L 500.4050, L501.2300, [id number], L100.0100 #### [facility] [address] [place], [address] Eosinophils/100 WBC (Bld) 4.2 % Normal 0-5 [facility] Comment on above: Order Comment: 111-2 Performed By: #### L 500.4050, L501.2300, [id number], L100.0100 #### [facility] [address] [place], [address] Erythrocyte distribution width (RBC) [Ratio] 12.6 % Normal 11.6-14.6 [facility] Comment on above: Order Comment: 111-2 Performed By: #### L 500.4050, L501.2300, [id number], L100.0100 #### [facility] [address] [place], [address] Hematocrit (Bld) [Volume fraction] 38.6 % Low 40-54 [facility] Comment on above: Order Comment: 111-2 Performed By: #### L 500.4050, L501.2300, [id number], L100.0100 #### [facility] [address] [place], [address] Hemoglobin (Bld) [Mass/Vol] 12.9 g/dL Low 13.0-16.5 [facility] Comment on above: Order Comment: 111-2 Performed By: #### L 500.4050, L501.2300, L501.9060, L100.0100 #### [facility] [address] [place], [address] IG% 0.400 Normal 0.0-0.9 [facility] Comment on above: Order Comment: 111-2 Result Comment: IG% - Immature Granulocytes (promyelocytes, myelocytes and metamyelocytes) > 1% indicates that a LEFT SHIFT is Present. Performed By: #### L 500.4050, L501.2300, L501.9060, L100.0100 #### [facility] [address] [place], [address] Lymphocytes/100 WBC (Bld) 18.7 % Low 19-41 [facility] Comment on above: Order Comment: 111-2 Performed By: #### L 500.4050, L501.2300, L501.9060, L100.0100 #### [facility] [address] [place], [address] MCH (RBC) [Entitic mass] 30.0 pg Normal 27.0-32.0 [facility] Comment on above: Order Comment: 111-2 Performed By: #### L 500.4050, L501.2300, [id number], L100.0100 #### [facility] [address] [place], [address] MCHC (RBC) [Mass/Vol] 33.4 g/dL Normal 32-36 [facility] Comment on above: Order Comment: 111-2 Performed By: #### L 500.4050, L501.2300, [id number], L100.0100 #### [facility] [address] [place], [address] MCV (RBC) [Entitic vol] 89.8 fL Normal 80-94 [facility] Comment on above: Order Comment: 111-2 Performed By: #### L 500.4050, L501.2300, [id number], L100.0100 #### [facility] [address] [place], [address] Monocytes/100 WBC (Bld) 13.2 % High 0-10 [facility] Comment on above: Order Comment: 111-2 Performed By: #### L 500.4050, L501.2300, [id number], L100.0100 #### [facility] [address] [place], [address] Neutrophils/100 WBC (Bld) 62.3 % Normal 47-70 [facility] Comment on above: Order Comment: 111-2 Performed By: #### L 500.4050, L501.2300, [id number], L100.0100 #### [facility] [address] [place], [address] Nucleated RBC (Bld) [#/Vol] 0 10*3/uL Normal 0-5 [facility] Comment on above: Order Comment: 111-2 Performed By: #### L 500.4050, L501.2300, L501.9060, L100.0100 #### [facility] [address] [place], [address] Platelet mean volume (Bld) [Entitic vol] 9.6 fL Normal 6.2-12.0 [facility] Comment on above: Order Comment: 111-2 Performed By: #### L 500.4050, L501.2300, L501.9060, L100.0100 #### [facility] [address] [place], [address] Platelets (Bld) [#/Vol] 231 10*3/uL Normal 150-450 [facility] Comment on above: Order Comment: 111-2 Performed By: #### L 500.4050, L501.2300, L501.9060, L100.0100 #### [facility] [address] [place], [address] RBC (Bld) [#/Vol] 4.30 10*6/uL Low 4.6-6.2 [facility] Comment on above: Order Comment: 111-2 Performed By: #### L 500.4050, L501.2300, L501.9060, L100.0100 #### [facility] [address] [place], [address] RDW SD 41.1 fl Normal 35.1-43.9 [facility] Comment on above: Order Comment: 111-2 Performed By: #### L 500.4050, L501.2300, L501.9060, L100.0100 #### [facility] [address] [place], [address] WBC (Bld) [#/Vol] 9.0 10*3/uL Normal 4.4-11.0 [facility] Comment on above: Order Comment: 111-2 Performed By: #### L 500.4050, L501.2300, L501.9060, L100.0100 #### [facility] [address] [place], [address] Carbon dioxide, total [Moles /volume] in Central venous bloodOrdered By: Alfredo Phipps on 07-29-2025 CO2 [Moles/Vol] 22.2 mmol/L 21.0-32.0 [facility] Chloride assayOrdered By: Chan Fiore on 07-29-2025 Chloride [Moles/Vol] 108 mmol/L 98-108 [facility] Comprehensive Metabolic Prof ilon 07-29-2025 Albumin [Mass/Vol] 3.6 g/dL Normal 3.4-4.8 [facility] Comment on above: Order Comment: 111-2 Performed By: #### L 500.4050, L501.2300, L501.9060, L100.0100 #### [facility] [address] [place], [address] Albumin/Globulin [Mass ratio] 1.5 {ratio} Normal 0.9-2.4 [facility] Comment on above: Order Comment: 111-2 Performed By: #### L 500.4050, L501.2300, L501.9060, L100.0100 #### [facility] [address] [place], [address] ALK PHOS 91 U/L Normal 40-129 [facility] Comment on above: Order Comment: 111-2 Performed By: #### L 500.4050, L501.2300, L501.9060, L100.0100 #### [facility] [address] [place], [address] ALT [Catalytic activity/Vol] 12 U/L Normal <=46 [facility] Comment on above: Order Comment: 111-2 Performed By: #### L 500.4050, L501.2300, L501.9060, L100.0100 #### [facility] [address] [place], [address] AST [Catalytic activity/Vol] 12 U/L Normal <=37 [facility] Comment on above: Order Comment: 111-2 Performed By: #### L 500.4050, L501.2300, L501.9060, L100.0100 #### [facility] [address] [place], [address] Bilirubin [Mass/Vol] 0.15 mg/dL Normal 0.00-1.30 [facility] Comment on above: Order Comment: 111-2 Performed By: #### L 500.4050, L501.2300, L501.9060, L100.0100 #### [facility] [address] [place], [address] BUN/CRE 11.1 RATIO Normal 10-20 [facility] Comment on above: Order Comment: 111-2 Performed By: #### L 500.4050, L501.2300, L501.9060, L100.0100 #### [facility] [address] [place], [address] Calcium [Mass/Vol] 9.2 mg/dL Normal 7.6-11.0 [facility] Comment on above: Order Comment: 111-2 Performed By: #### L 500.4050, L501.2300, L501.9060, L100.0100 #### [facility] [address] [place], [address] Chloride [Moles/Vol] 108 mmol/L Normal 98-108 [facility] Comment on above: Order Comment: 111-2 Performed By: #### L 500.4050, L501.2300, L501.9060, L100.0100 #### [facility] [address] [place], [address] CO2 [Moles/Vol] 22.2 mmol/L Normal 21.0-32.0 [facility] Comment on above: Order Comment: 111-2 Performed By: #### L 500.4050, L501.2300, L501.9060, L100.0100 #### [facility] [address] [place], [address] Creatinine [Mass/Vol] 2.36 mg/dL High 0.70-1.20 [facility] Comment on above: Order Comment: 111-2 Performed By: #### L 500.4050, L501.2300, L501.9060, L100.0100 #### [facility] [address] [place], [address] GAP 10 Normal 5-15 [facility] Comment on above: Order Comment: 111-2 Performed By: #### L 500.4050, L501.2300, L501.9060, L100.0100 #### [facility] [address] [place], [address] GFR/1.73 sq M.predicted among non-blacks MDRD (S/P/Bld) [Vol rate/Area] 30 mL/min/{1.73_m2} Low >60 [facility] Comment on above: Order Comment: 111-2 Result Comment: mL/m in/1.73m2 CKD-EPI Creatinine Equation (2020) Performed By: #### L 500.4050, L501.2300, L501.9060, L100.0100 #### [facility] [address] [place], [address] Globulin (S) [Mass/Vol] 2.4 g/dL Normal 2.2-4.2 [facility] Comment on above: Order Comment: 111-2 Performed By: #### L 500.4050, L501.2300, L501.9060, L100.0100 #### [facility] [address] [place], [address] Glucose [Mass/Vol] 136 mg/dL High 70-99 [facility] Comment on above: Order Comment: 111-2 Performed By: #### L 500.4050, L501.2300, L501.9060, L100.0100 #### [facility] [address] [place], [address] Potassium [Moles/Vol] 4.5 mmol/L Normal 3.3-5.1 [facility] Comment on above: Order Comment: 111-2 Performed By: #### L 500.4050, L501.2300, L501.9060, L100.0100 #### [facility] [address] [place], [address] Sodium [Moles/Vol] 140 mmol/L Normal 133-145 [facility] Comment on above: Order Comment: 111-2 Performed By: #### L 500.4050, L501.2300, L501.9060, L100.0100 #### [facility] [address] [place], [address] T PROT 6.0 g/dL Normal 5.9-8.4 [facility] Comment on above: Order Comment: 111-2 Performed By: #### L 500.4050, L501.2300, L501.9060, L100.0100 #### [facility] [address] [place], [address] Urea nitrogen [Mass/Vol] 26 mg/dL High 4-19 [facility] Comment on above: Order Comment: 111-2 Performed By: #### L 500.4050, L501.2300, L501.9060, L100.0100 #### [facility] [address] [place], [address] Eosinophil percentageOrdered By: Alfredo Phipps on 07-29-2025 Eosinophils/100 WBC (Bld) 4.2 % 0-5 [facility] Erythrocyte distribution wid th ratioOrdered By: Alfredo Phipps on 07-29-2025 Erythrocyte distribution width (RBC) [Ratio] 12.6 % 11.6-14.6 [facility] Erythrocyte distribution wid th standard deviationOrdered By: Alfredo Phipps on 07-29-2025 Erythrocyte distribution width (RBC) [Ratio] 41.1 fl 35.1-43.9 [facility] Glomerular filtration rate ( GFR) estimation/1.73 sq m using serum, plasma, or whole bOrdered By: Alfredo Phipps on 07-29-2025 GFR/1.73 sq M.predicted among non-blacks MDRD (S/P/Bld) [Vol rate/Area] 30 mL/min/{1.73_m2} Low >60 [facility] Comment on above: mL/min/1.73m2 CKD-EP I Creatinine Equation (2020) Hematocrit Auto (Bld) [Volum e fraction]Ordered By: Alfredo Phipps on 07-29-2025 Hematocrit (Bld) [Volume fraction] 38.6 % Low 40-54 [facility] Hemoglobin measurementOrdere d By: Alfredo Phipps on 07-29-2025 Hemoglobin (Bld) [Mass/Vol] 12.9 g/dL Low 13.0-16.5 [facility] Immature granulocytes/100 WB C Auto (Bld)Ordered By: Alfredo Phipps on 07-29-2025 Immature granulocytes/100 WBC (Bld) 0.400 % 0.0-0.9 [facility] Comment on above: IG% - Immature Granu locytes (promyelocytes, myelocytes and metamyelocytes) > 1% indicates that a LEFT SHIFT is Present. Laboratory - Chemistry and C hemistry - challengeOrdered By: Alfredo Phipps on 07-29-2025 AST [Catalytic activity/Vol] 12 U/L <38 [facility] MCV (mean corpuscular volume ) determinationOrdered By: Alfredo Phipps on 07-29-2025 MCV (RBC) [Entitic vol] 89.8 fL 80-94 [facility] Mean corpuscular hemoglobin (MCH) determinationOrdered By: Alfredo Phipps on 07-29-2025 MCH (RBC) [Entitic mass] 30.0 pg 27.0-32.0 [facility] Mean corpuscular hemoglobin concentration (MCHC) determinationOrdered By: Alfredo Phipps on 07-29-2025 MCHC (RBC) [Mass/Vol] 33.4 g/dL 32-36 [facility] Mean platelet volume determi nationOrdered By: Alfredo Phipps on 07-29-2025 Platelet mean volume (Bld) [Entitic vol] 9.6 fL 6.2-12.0 [facility] Monocyte percentageOrdered B y: Alfredo Phipps on 07-29-2025 Monocytes/100 WBC (Bld) 13.2 % High 0-10 [facility] Neutrophil percentageOrdered By: Alfredo Phipps on 07-29-2025 Neutrophils/100 WBC (Bld) 62.3 % 47-70 [facility] Nucleated red blood cell per centageOrdered By: Alfredo Phipps on 07-29-2025 Nucleated RBC/100 WBC (Bld) [Ratio] 0 % 0-5 [facility] Phosphoruson 07-29-2025 Phosphate [Mass/Vol] 4.6 mg/dL High 2.7-4.5 [facility] Comment on above: Order Comment: 111-2 Performed By: #### L 500.4050, L501.2300, L501.9060, L100.0100 #### [facility] [address] [place] [address], [address] Platelet countOrdered By: Chan Fiore on 07-29-2025 Platelets (Bld) [#/Vol] 231 10*3/uL 150-450 [facility] Potassium measurement (mass/ volume)Ordered By: Alfredo Phipps on 07-29-2025 Potassium (Unsp spec) [Mass/Vol] 4.5 mmol/L 3.3-5.1 [facility] RBC Auto (Bld) [#/Vol]Ordere d By: Alfredo Phipps on 07-29-2025 RBC (Bld) [#/Vol] 4.30 10*6/uL Low 4.6-6.2 [facility] Serum creatinine measurement (mass/volume)Ordered By: Alfredo Phipps on 07-29-2025 Creatinine [Mass/Vol] 2.36 mg/dL High 0.70-1.20 [facility] Serum globulin measurementOr dered By: Alfredo Phipps on 07-29-2025 Globulin (S) [Mass/Vol] 2.4 g/dL 2.2-4.2 [facility] Serum glucose measurement (m ass/volume)Ordered By: Alfredo Phipps on 07-29-2025 Glucose [Mass/Vol] 136 mg/dL High 70-99 [facility] Serum or plasma alanine sesay otransferase (ALT) measurementOrdered By: Alfredo Phipps on 07-29-2025 ALT [Catalytic activity/Vol] 12 U/L <47 [facility] Serum or plasma albumin you urement (mass/volume)Ordered By: Alfredo Phipps on 07-29-2025 Albumin [Mass/Vol] 3.6 g/dL 3.4-4.8 [facility] Serum or plasma albumin/glob ulin mass ratioOrdered By: Alfredo Phipps on 07-29-2025 Albumin/Globulin [Mass ratio] 1.5 {ratio} 0.9-2.4 [facility] Serum or plasma alkaline hal sphatase measurementOrdered By: Alfredo Phipps on 07-29-2025 ALP [Catalytic activity/Vol] 91 U/L 40-129 [facility] Serum or plasma calcium you urement (mass/volume)Ordered By: Alfredo Phipps on 07-29-2025 Calcium [Mass/Vol] 9.2 mg/dL 7.6-11.0 [facility] Serum or plasma urea nitroge n measurement (mass/volume)Ordered By: Alfredo Phipps on 07-29-2025 Urea nitrogen [Mass/Vol] 26 mg/dL High 4-19 [facility] Sodium levelOrdered By: Raffi Phipps on 07-29-2025 Sodium [Moles/Vol] 140 mmol/L 133-145 [facility] Total proteinOrdered By: Jennifer Phipps on 07-29-2025 Protein [Mass/Vol] 6.0 g/dL 5.9-8.4 [facility] White blood cell (WBC) count Ordered By: Alfredo Phipps on 07-29-2025 WBC (Bld) [#/Vol] 9.0 10*3/uL 4.4-11.0 [facility] Lithiumon 07-02-2025 LI 0.56 mmol/L Low 0.60-1.20 [facility] Comment on above: Order Comment: 111.2 UNKNOWN [id number] Performed By: #### L 501.9060 #### [facility] [address] [place], [address] Bilirubin directOrdered By: Adam Ferraro on 07-01-2025 Bilirubin.direct [Mass/Vol] 0.09 mg/dL 0.00-0.30 [facility] Bilirubin, totalOrdered By: Adam Ferraro on 07-01-2025 Bilirubin [Mass/Vol] 0.16 mg/dL 0.00-1.30 [facility] Laboratory - Chemistry and C hemistry - challengeOrdered By: Adam Ferraro on 07-01-2025 AST [Catalytic activity/Vol] 11 U/L <38 [facility] Liver Profileon 07-01-2025 Albumin [Mass/Vol] 3.5 g/dL Normal 3.4-4.8 [facility] Comment on above: Performed By: #### L 500.4050, L501.2300, L501.9060, L100.0100 #### [facility] [address] [place], [address] ALK PHOS 88 U/L Normal 40-129 [facility] Comment on above: Performed By: #### L 500.4050, L501.2300, L501.9060, L100.0100 #### [facility] [address] [place], [address] ALT [Catalytic activity/Vol] 13 U/L Normal <=46 [facility] Comment on above: Performed By: #### L 500.4050, L501.2300, L501.9060, L100.0100 #### [facility] [address] [place], [address] AST [Catalytic activity/Vol] 11 U/L Normal <=37 [facility] Comment on above: Performed By: #### L 500.4050, L501.2300, L501.9060, L100.0100 #### [facility] [address] [place], [address] Bilirubin [Mass/Vol] 0.16 mg/dL Normal 0.00-1.30 [facility] Comment on above: Performed By: #### L 500.4050, L501.2300, L501.9060, L100.0100 #### [facility] [address] [place], [address] Bilirubin.direct [Mass/Vol] 0.09 mg/dL Normal 0.00-0.30 [facility] Comment on above: Performed By: #### L 500.4050, L501.2300, L501.9060, L100.0100 #### [facility] [address] [place], [address] Globulin (S) [Mass/Vol] 2.4 g/dL Normal 2.2-4.2 [facility] Comment on above: Performed By: #### L 500.4050, L501.2300, L501.9060, L100.0100 #### [facility] [address] [place], [address] T PROT 5.8 g/dL Low 5.9-8.4 [facility] Comment on above: Performed By: #### L 500.4050, L501.2300, L501.9060, L100.0100 #### [facility] [address] [place], [address] Serum globulin measurementOr dered By: Adam Ferraro on 07-01-2025 Globulin (S) [Mass/Vol] 2.4 g/dL 2.2-4.2 [facility] Serum or plasma alanine sesay otransferase (ALT) measurementOrdered By: Adam Ferraro on 07-01-2025 ALT [Catalytic activity/Vol] 13 U/L <47 [facility] Serum or plasma albumin you urement (mass/volume)Ordered By: Adam Ferraro on 07-01-2025 Albumin [Mass/Vol] 3.5 g/dL 3.4-4.8 [facility] Serum or plasma alkaline hal sphatase measurementOrdered By: Adam Jasmien on 07-01-2025 ALP [Catalytic activity/Vol] 88 U/L 40-129 [facility] Total proteinOrdered By: Benoit ivey Jasmine on 07-01-2025 Protein [Mass/Vol] 5.8 g/dL Low 5.9-8.4 [facility] Serum or plasma uric acid me asurement (mass/volume)Ordered By: Adam Ferraro on 06-27-2025 Urate [Mass/Vol] 5.8 mg/dL 3.5-7.2 [facility] Comment on above: The drugs N-Acetylcy steine and Metamizole may falsely depress this assay. Uric Acidon 06-27-2025 URIC 5.8 mg/dL Normal 3.5-7.2 [facility] Comment on above: Order Comment: [id number] Result Comment: The drugs N-Acetylcysteine and Metamizole may falsely depress this assay. Performed By: #### L 500.4050, L501.2300, L501.9060, L100.0100 #### [facility] [address] [place], [address] Protein+Creatinine Ratio,Uri neon 06-20-2025 PROT:CRE RATIO 227 mg/g CRE High 0-200 [facility] Comment on above: Order Comment: [id number] Performed By: #### L 500.4050, L501.2300, L501.9060, L100.0100 #### [facility] [address] [place], [address] UR CREAT 33.80 mg/dL Low 39.00-259.0 0 [facility] Comment on above: Order Comment: [id number] Performed By: #### L 500.4050, L501.2300, L501.9060, L100.0100 #### [facility] [address] [place], [address] Random urine creatinine you urement (mass/volume)Ordered By: Alfredo Phipps on 06-20-2025 Creatinine Unsp time (U) [Mass/Vol] 33.80 mg/dL Low 39.00-259.0 0 [facility] Urine protein measurement (m ass/volume)Ordered By: Alfredo Phipps on 06-20-2025 Protein (U) [Mass/Vol] 7.7 mg/dL Normal 0.0-12.0 [facility] Comment on above: Order Comment: 111-2 [id number] Performed By: #### L 500.4050, L501.2300, L501.9060, L100.0100 #### [facility] [address] [place], [address] Urine protein/creatinine mas s ratioOrdered By: Alfredo Phipps on 06-20-2025 Protein/Creatinine (U) [Mass ratio] 227 mg/g CRE High 0-200 [facility] Absolute lymphocyte countOrd ered By: Alfredo Phipps on 06-19-2025 Lymphocytes Auto (Unsp spec) [#/Vol] 1.75 10*3/uL 0.83-4.51 [facility] Absolute neutrophil countOrd ered By: Alfredo Phipps on 06-19-2025 Neutrophils (Bld) [#/Vol] 5.4 10*3/uL 2.0-7.7 [facility] Anion gap in Serum or Plasma Ordered By: Alfredo Phipps on 06-19-2025 Anion gap [Moles/Vol] 13 mmol/L 5-15 [facility] Automated lymphocyte count a s percentage of total leukocytesOrdered By: Alfredo Phipps on 06-19-2025 Lymphocytes/100 WBC Auto (Unsp spec) 20.1 % 19-41 [facility] BUN/creatinine ratioOrdered By: Alfredo Phipps on 06-19-2025 Urea nitrogen/Creatinine [Mass ratio] 11.3 mg/mg 10-20 [facility] Basophil percentageOrdered B y: Alfredo Phipps on 06-19-2025 Basophils/100 WBC (Bld) 1.0 % 0-1 [facility] Bilirubin, totalOrdered By: Alfredo Phipps on 06-19-2025 Bilirubin [Mass/Vol] 0.22 mg/dL 0.00-1.30 [facility] CBC W/Diff, Automatedon 08-0 6-2024 Absolute Lymph 1.75 X10 3/uL Normal 0.83-4.51 [facility] Comment on above: Order Comment: 111-2 Performed By: #### L 500.4050, L501.2300, L501.9060, L100.0100 #### [facility] [address] [place], [address] Absolute Neut 5.4 X10 3/uL Normal 2.0-7.7 [facility] Comment on above: Order Comment: 111-2 Performed By: #### L 500.4050, L501.2300, L501.9060, L100.0100 #### [facility] [address] [place], [address] Basophils/100 WBC (Bld) 1.0 % Normal 0-1 [facility] Comment on above: Order Comment: 111-2 Performed By: #### L 500.4050, L501.2300, L501.9060, L100.0100 #### [facility] [address] [place], [address] Eosinophils/100 WBC (Bld) 6.0 % High 0-5 [facility] Comment on above: Order Comment: 111-2 Performed By: #### L 500.4050, L501.2300, L501.9060, L100.0100 #### [facility] [address] [place], [address] Erythrocyte distribution width (RBC) [Ratio] 12.7 % Normal 11.6-14.6 [facility] Comment on above: Order Comment: 111-2 Performed By: #### L 500.4050, L501.2300, L501.9060, L100.0100 #### [facility] [address] [place], [address] Hematocrit (Bld) [Volume fraction] 39.2 % Low 40-54 [facility] Comment on above: Order Comment: 111-2 Performed By: #### L 500.4050, L501.2300, L501.9060, L100.0100 #### [facility] [address] [place], [address] Hemoglobin (Bld) [Mass/Vol] 12.8 g/dL Low 13.0-16.5 [facility] Comment on above: Order Comment: 111-2 Performed By: #### L 500.4050, L501.2300, L501.9060, L100.0100 #### [facility] [address] [place], [address] IG% 0.500 Normal 0.0-0.9 [facility] Comment on above: Order Comment: 111-2 Result Comment: IG% - Immature Granulocytes (promyelocytes, myelocytes and metamyelocytes) > 1% indicates that a LEFT SHIFT is Present. Performed By: #### L 500.4050, L501.2300, L501.9060, L100.0100 #### [facility] [address] [place], [address] Lymphocytes/100 WBC (Bld) 20.1 % Normal 19-41 [facility] Comment on above: Order Comment: 111-2 Performed By: #### L 500.4050, L501.2300, L501.9060, L100.0100 #### [facility] [address] [place], [address] MCH (RBC) [Entitic mass] 30.0 pg Normal 27.0-32.0 [facility] Comment on above: Order Comment: 111-2 Performed By: #### L 500.4050, L501.2300, L501.9060, L100.0100 #### [facility] [address] [place], [address] MCHC (RBC) [Mass/Vol] 32.7 g/dL Normal 32-36 [facility] Comment on above: Order Comment: 111-2 Performed By: #### L 500.4050, L501.2300, L501.9060, L100.0100 #### [facility] [address] [place], [address] MCV (RBC) [Entitic vol] 91.8 fL Normal 80-94 [facility] Comment on above: Order Comment: 111-2 Performed By: #### L 500.4050, L501.2300, L501.9060, L100.0100 #### [facility] [address] [place], [address] Monocytes/100 WBC (Bld) 10.7 % High 0-10 [facility] Comment on above: Order Comment: 111-2 Performed By: #### L 500.4050, L501.2300, L501.9060, L100.0100 #### [facility] [address] [place], [address] Neutrophils/100 WBC (Bld) 61.7 % Normal 47-70 [facility] Comment on above: Order Comment: 111-2 Performed By: #### L 500.4050, L501.2300, L501.9060, L100.0100 #### [facility] [address] [place], [address] Nucleated RBC (Bld) [#/Vol] 0 10*3/uL Normal 0-5 [facility] Comment on above: Order Comment: 111-2 Performed By: #### L 500.4050, L501.2300, L501.9060, L100.0100 #### [facility] [address] [place], [address] Platelet mean volume (Bld) [Entitic vol] 9.5 fL Normal 6.2-12.0 [facility] Comment on above: Order Comment: 111-2 Performed By: #### L 500.4050, L501.2300, L501.9060, L100.0100 #### [facility] [address] [place], [address] Platelets (Bld) [#/Vol] 247 10*3/uL Normal 150-450 [facility] Comment on above: Order Comment: 111-2 Performed By: #### L 500.4050, L501.2300, L501.9060, L100.0100 #### [facility] [address] [place], [address] RBC (Bld) [#/Vol] 4.27 10*6/uL Low 4.6-6.2 [facility] Comment on above: Order Comment: 111-2 Performed By: #### L 500.4050, L501.2300, L501.9060, L100.0100 #### [facility] [address] [place], [address] RDW SD 42.5 fl Normal 35.1-43.9 [facility] Comment on above: Order Comment: 111-2 Performed By: #### L 500.4050, L501.2300, L501.9060, L100.0100 #### [facility] [address] [place], [address] WBC (Bld) [#/Vol] 8.7 10*3/uL Normal 4.4-11.0 [facility] Comment on above: Order Comment: 111-2 Performed By: #### L 500.4050, L501.2300, L501.9060, L100.0100 #### [facility] [address] [place], [address] Carbon dioxide, total [Moles /volume] in Central venous bloodOrdered By: Alfredo Phipps on 06-19-2025 CO2 [Moles/Vol] 19.9 mmol/L Low 21.0-32.0 [facility] Chloride assayOrdered By: Chan Fiore on 06-19-2025 Chloride [Moles/Vol] 105 mmol/L 98-108 [facility] Comprehensive Metabolic Prof ilon 06-19-2025 Albumin [Mass/Vol] 3.6 g/dL Normal 3.4-4.8 [facility] Comment on above: Order Comment: 111-2 Performed By: #### L 500.4050, L501.2300, L501.9060, L100.0100 #### [facility] [address] [place], [address] Albumin/Globulin [Mass ratio] 1.4 {ratio} Normal 0.9-2.4 [facility] Comment on above: Order Comment: 111-2 Performed By: #### L 500.4050, L501.2300, L501.9060, L100.0100 #### [facility] [address] [place], [address] ALK PHOS 91 U/L Normal 40-129 [facility] Comment on above: Order Comment: 111-2 Performed By: #### L 500.4050, L501.2300, L501.9060, L100.0100 #### [facility] [address] [place], [address] ALT [Catalytic activity/Vol] 8 U/L Normal <=46 [facility] Comment on above: Order Comment: 111-2 Performed By: #### L 500.4050, L501.2300, L501.9060, L100.0100 #### [facility] [address] [place], [address] AST [Catalytic activity/Vol] 14 U/L Normal <=37 [facility] Comment on above: Order Comment: 111-2 Performed By: #### L 500.4050, L501.2300, L501.9060, L100.0100 #### [facility] [address] [place], [address] Bilirubin [Mass/Vol] 0.22 mg/dL Normal 0.00-1.30 [facility] Comment on above: Order Comment: 111-2 Performed By: #### L 500.4050, L501.2300, L501.9060, L100.0100 #### [facility] [address] [place], [address] BUN/CRE 11.3 RATIO Normal 10-20 [facility] Comment on above: Order Comment: 111-2 Performed By: #### L 500.4050, L501.2300, L501.9060, L100.0100 #### [facility] [address] [place], [address] Calcium [Mass/Vol] 9.3 mg/dL Normal 7.6-11.0 [facility] Comment on above: Order Comment: 111-2 Performed By: #### L 500.4050, L501.2300, L501.9060, L100.0100 #### [facility] [address] [place], [address] Chloride [Moles/Vol] 105 mmol/L Normal 98-108 [facility] Comment on above: Order Comment: 111-2 Performed By: #### L 500.4050, L501.2300, L501.9060, L100.0100 #### [facility] [address] [place], [address] CO2 [Moles/Vol] 19.9 mmol/L Low 21.0-32.0 [facility] Comment on above: Order Comment: 111-2 Performed By: #### L 500.4050, L501.2300, L501.9060, L100.0100 #### [facility] [address] [place], [address] Creatinine [Mass/Vol] 2.26 mg/dL High 0.70-1.20 [facility] Comment on above: Order Comment: 111-2 Performed By: #### L 500.4050, L501.2300, L501.9060, L100.0100 #### [facility] [address] [place], [address] GAP 13 Normal 5-15 [facility] Comment on above: Order Comment: 111-2 Performed By: #### L 500.4050, L501.2300, L501.9060, L100.0100 #### [facility] [address] [place], [address] GFR/1.73 sq M.predicted among non-blacks MDRD (S/P/Bld) [Vol rate/Area] 32 mL/min/{1.73_m2} Low >60 [facility] Comment on above: Order Comment: 111-2 Result Comment: mL/m in/1.73m2 CKD-EPI Creatinine Equation (2020) Performed By: #### L 500.4050, L501.2300, L501.9060, L100.0100 #### [facility] [address] [place], [address] Globulin (S) [Mass/Vol] 2.5 g/dL Normal 2.2-4.2 [facility] Comment on above: Order Comment: 111-2 Performed By: #### L 500.4050, L501.2300, L501.9060, L100.0100 #### [facility] [address] [place], [address] Glucose [Mass/Vol] 122 mg/dL High 70-99 [facility] Comment on above: Order Comment: 111-2 Performed By: #### L 500.4050, L501.2300, L501.9060, L100.0100 #### [facility] [address] [place], [address] Potassium [Moles/Vol] 4.3 mmol/L Normal 3.3-5.1 [facility] Comment on above: Order Comment: 111-2 Performed By: #### L 500.4050, L501.2300, L501.9060, L100.0100 #### [facility] [address] [place], [address] Sodium [Moles/Vol] 137 mmol/L Normal 133-145 [facility] Comment on above: Order Comment: 111-2 Performed By: #### L 500.4050, L501.2300, L501.9060, L100.0100 #### [facility] [address] [place], [address] T PROT 6.1 g/dL Normal 5.9-8.4 [facility] Comment on above: Order Comment: 111-2 Performed By: #### L 500.4050, L501.2300, L501.9060, L100.0100 #### [facility] [address] [place], [address] Urea nitrogen [Mass/Vol] 26 mg/dL High 4-19 [facility] Comment on above: Order Comment: 111-2 Performed By: #### L 500.4050, L501.2300, L501.9060, L100.0100 #### [facility] [address] [place], [address] Eosinophil percentageOrdered By: Alfredo Phipps on 06-19-2025 Eosinophils/100 WBC (Bld) 6.0 % High 0-5 [facility] Erythrocyte distribution wid th ratioOrdered By: Alfredo Phipps on 06-19-2025 Erythrocyte distribution width (RBC) [Ratio] 12.7 % 11.6-14.6 [facility] Erythrocyte distribution wid th standard deviationOrdered By: Alfredo Phipps on 06-19-2025 Erythrocyte distribution width (RBC) [Ratio] 42.5 fl 35.1-43.9 [facility] Glomerular filtration rate ( GFR) estimation/1.73 sq m using serum, plasma, or whole bOrdered By: Alfredo Phipps on 06-19-2025 GFR/1.73 sq M.predicted among non-blacks MDRD (S/P/Bld) [Vol rate/Area] 32 mL/min/{1.73_m2} Low >60 [facility] Comment on above: mL/min/1.73m2 CKD-EP I Creatinine Equation (2020) Hematocrit Auto (Bld) [Volum e fraction]Ordered By: Alfredo Phipps on 06-19-2025 Hematocrit (Bld) [Volume fraction] 39.2 % Low 40-54 [facility] Hemoglobin measurementOrdere d By: Alfredo Phipps on 06-19-2025 Hemoglobin (Bld) [Mass/Vol] 12.8 g/dL Low 13.0-16.5 [facility] Immature granulocytes/100 WB C Auto (Bld)Ordered By: Alfredo Phipps on 06-19-2025 Immature granulocytes/100 WBC (Bld) 0.500 % 0.0-0.9 [facility] Comment on above: IG% - Immature Granu locytes (promyelocytes, myelocytes and metamyelocytes) > 1% indicates that a LEFT SHIFT is Present. Laboratory - Chemistry and C hemistry - challengeOrdered By: Alfredo Phipps on 06-19-2025 AST [Catalytic activity/Vol] 14 U/L <38 [facility] Lithiumon 06-19-2025 LI 0.56 mmol/L Low 0.60-1.20 [facility] Comment on above: Order Comment: 111-2 Performed By: #### L 500.4050, L501.2300, L501.9060, L100.0100 #### [facility] [address] [place], [address] MCV (mean corpuscular volume ) determinationOrdered By: Alfredo Phipps on 06-19-2025 MCV (RBC) [Entitic vol] 91.8 fL 80-94 [facility] Mean corpuscular hemoglobin (MCH) determinationOrdered By: Alfredo Phipps on 06-19-2025 MCH (RBC) [Entitic mass] 30.0 pg 27.0-32.0 [facility] Mean corpuscular hemoglobin concentration (MCHC) determinationOrdered By: Alfredo Phipps on 06-19-2025 MCHC (RBC) [Mass/Vol] 32.7 g/dL 32-36 [facility] Mean platelet volume determi nationOrdered By: Alfredo Phipps on 06-19-2025 Platelet mean volume (Bld) [Entitic vol] 9.5 fL 6.2-12.0 [facility] Monocyte percentageOrdered B y: Alfredo Phipps on 06-19-2025 Monocytes/100 WBC (Bld) 10.7 % High 0-10 [facility] Neutrophil percentageOrdered By: Alfredo Phipps on 06-19-2025 Neutrophils/100 WBC (Bld) 61.7 % 47-70 [facility] Nucleated red blood cell per centageOrdered By: Alfredo Phipps on 06-19-2025 Nucleated RBC/100 WBC (Bld) [Ratio] 0 % 0-5 [facility] Phosphoruson 06-19-2025 Phosphate [Mass/Vol] 4.5 mg/dL Normal 2.7-4.5 [facility] Comment on above: Order Comment: 111-2 Performed By: #### L 500.4050, L501.2300, L501.9060, L100.0100 #### [facility] Laboratory [address] [place], [address] Platelet countOrdered By: Chan Fiore on 06-19-2025 Platelets (Bld) [#/Vol] 247 10*3/uL 150-450 [facility] Potassium measurement (mass/ volume)Ordered By: Alfredo Phipps on 06-19-2025 Potassium (Unsp spec) [Mass/Vol] 4.3 mmol/L 3.3-5.1 [facility] RBC Auto (Bld) [#/Vol]Ordere d By: Alfredo Phipps on 06-19-2025 RBC (Bld) [#/Vol] 4.27 10*6/uL Low 4.6-6.2 [facility] Serum creatinine measurement (mass/volume)Ordered By: Alfredo Phipps on 06-19-2025 Creatinine [Mass/Vol] 2.26 mg/dL High 0.70-1.20 [facility] Serum globulin measurementOr dered By: Alfredo Phipps on 06-19-2025 Globulin (S) [Mass/Vol] 2.5 g/dL 2.2-4.2 [facility] Serum glucose measurement (m ass/volume)Ordered By: Alfredo Phipps on 06-19-2025 Glucose [Mass/Vol] 122 mg/dL High 70-99 [facility] Serum or plasma alanine sesay otransferase (ALT) measurementOrdered By: Alfredo Phipps on 06-19-2025 ALT [Catalytic activity/Vol] 8 U/L <47 [facility] Serum or plasma albumin you urement (mass/volume)Ordered By: Alfredo Phipps on 06-19-2025 Albumin [Mass/Vol] 3.6 g/dL 3.4-4.8 [facility] Serum or plasma albumin/glob ulin mass ratioOrdered By: Alfredo Phipps on 06-19-2025 Albumin/Globulin [Mass ratio] 1.4 {ratio} 0.9-2.4 [facility] Serum or plasma alkaline hal sphatase measurementOrdered By: Alfredo Phipps on 06-19-2025 ALP [Catalytic activity/Vol] 91 U/L 40-129 [facility] Serum or plasma calcium you urement (mass/volume)Ordered By: Alfredo Phipps on 06-19-2025 Calcium [Mass/Vol] 9.3 mg/dL 7.6-11.0 [facility] Serum or plasma urea nitroge n measurement (mass/volume)Ordered By: Alfredo Phipps on 06-19-2025 Urea nitrogen [Mass/Vol] 26 mg/dL High 4-19 [facility] Sodium levelOrdered By: Raffi Phipps on 06-19-2025 Sodium [Moles/Vol] 137 mmol/L 133-145 [facility] Total proteinOrdered By: Jennifer Phipps on 06-19-2025 Protein [Mass/Vol] 6.1 g/dL 5.9-8.4 [facility] White blood cell (WBC) count Ordered By: Alfredo Phipps on 06-19-2025 WBC (Bld) [#/Vol] 8.7 10*3/uL 4.4-11.0 [facility] EST Glomerular Filtration Ra meredith 06-05-2025 GFR/1.73 sq M.predicted among non-blacks MDRD (S/P/Bld) [Vol rate/Area] 30 mL/min/{1.73_m2} Low >60 [facility] Comment on above: Order Comment: 111-2 [id number] Result Comment: mL/m in/1.73m2 CKD-EPI Creatinine Equation (2020) Performed By: #### L 500.4050, L501.2300, L501.9060, L100.0100 #### [facility] [address] [place], [place], [address] Glomerular filtration rate ( GFR) estimation/1.73 sq m using serum, plasma, or whole bOrdered By: Adam Ferraro on 06-05-2025 GFR/1.73 sq M.predicted among non-blacks MDRD (S/P/Bld) [Vol rate/Area] 30 mL/min/{1.73_m2} Low >60 [facility] Comment on above: mL/min/1.73m2 CKD-EP I Creatinine Equation (2020) Urine Cultureon 05-29-2025 [facility] Mixed Gram Positive Organisms Lennox Count 11,000-25,000 [facility] Mixed contaminants. Submit a new specimen if indicated. Normal [facility] Comment on above: Performed By: #### L 500.4050, L501.2300, L501.9060, L100.0100 #### [facility] [address] [place], [place], [address] Absolute lymphocyte countOrd ered By: Adam Ferraro on 05-28-2025 Lymphocytes Auto (Unsp spec) [#/Vol] 2.10 10*3/uL 0.83-4.51 [facility] Absolute neutrophil countOrd ered By: Adam Ferraro on 05-28-2025 Neutrophils (Bld) [#/Vol] 5.2 10*3/uL 2.0-7.7 [facility] Automated lymphocyte count a s percentage of total leukocytesOrdered By: Adam Ferraro on 05-28-2025 Lymphocytes/100 WBC Auto (Unsp spec) 23.5 % 19-41 [facility] Basophil percentageOrdered B y: Adam Ferraro on 05-28-2025 Basophils/100 WBC (Bld) 1.0 % 0-1 [facility] CBC W/Diff, Automatedon 05-14 Absolute Lymph 2.10 X10 3/uL Normal 0.83-4.51 [facility] Comment on above: Order Comment: [id number] Performed By: #### L 500.4050, L501.2300, L501.9060, L100.0100 #### [facility] [address] [place], [address] Absolute Neut 5.2 X10 3/uL Normal 2.0-7.7 [facility] Comment on above: Order Comment: 20250814 Performed By: #### L 500.4050, L501.2300, L501.9060, L100.0100 #### [facility] [address] [place], [address] Basophils/100 WBC (Bld) 1.0 % Normal 0-1 [facility] Comment on above: Order Comment: 20250814 Performed By: #### L 500.4050, L501.2300, L501.9060, L100.0100 #### [facility] [address] [place], [address] Eosinophils/100 WBC (Bld) 5.5 % High 0-5 [facility] Comment on above: Order Comment: 20250814 Performed By: #### L 500.4050, L501.2300, L501.9060, L100.0100 #### [facility] [address] [place], [address] Erythrocyte distribution width (RBC) [Ratio] 12.5 % Normal 11.6-14.6 [facility] Comment on above: Order Comment: 111-2 [id number] Performed By: #### L 500.4050, L501.2300, L501.9060, L100.0100 #### [facility] [address] [place], [address] Hematocrit (Bld) [Volume fraction] 39.7 % Low 40-54 [facility] Comment on above: Order Comment: 20250814 Performed By: #### L 500.4050, L501.2300, L501.9060, L100.0100 #### [facility] [address] [place], [address] Hemoglobin (Bld) [Mass/Vol] 13.3 g/dL Normal 13.0-16.5 [facility] Comment on above: Order Comment: 20250814 Performed By: #### L 500.4050, L501.2300, L501.9060, L100.0100 #### [facility] [address] [place], [address] IG% 0.700 Normal 0.0-0.9 [facility] Comment on above: Order Comment: 20250814 Result Comment: IG% - Immature Granulocytes (promyelocytes, myelocytes and metamyelocytes) > 1% indicates that a LEFT SHIFT is Present. Performed By: #### L 500.4050, L501.2300, L501.9060, L100.0100 #### [facility] [address] [place], [address] Lymphocytes/100 WBC (Bld) 23.5 % Normal 19-41 [facility] Comment on above: Order Comment: 20250814 Performed By: #### L 500.4050, L501.2300, L501.9060, L100.0100 #### [facility] [address] [place], [address] MCH (RBC) [Entitic mass] 30.2 pg Normal 27.0-32.0 [facility] Comment on above: Order Comment: 20250814 Performed By: #### L 500.4050, L501.2300, L501.9060, L100.0100 #### [facility] [address] [place], [address] MCHC (RBC) [Mass/Vol] 33.5 g/dL Normal 32-36 [facility] Comment on above: Order Comment: 20250814 Performed By: #### L 500.4050, L501.2300, L501.9060, L100.0100 #### [facility] [address] [place], [address] MCV (RBC) [Entitic vol] 90.0 fL Normal 80-94 [facility] Comment on above: Order Comment: 20250814 Performed By: #### L 500.4050, L501.2300, L501.9060, L100.0100 #### [facility] [address] [place], [address] Monocytes/100 WBC (Bld) 11.1 % High 0-10 [facility] Comment on above: Order Comment: 20250814 Performed By: #### L 500.4050, L501.2300, L501.9060, L100.0100 #### [facility] [address] [place], [address] Neutrophils/100 WBC (Bld) 58.2 % Normal 47-70 [facility] Comment on above: Order Comment: 20250814 Performed By: #### L 500.4050, L501.2300, L501.9060, L100.0100 #### [facility] [address] [place], [address] Nucleated RBC (Bld) [#/Vol] 0 10*3/uL Normal 0-5 [facility] Comment on above: Order Comment: [id number] 0100 Performed By: #### L 500.4050, L501.2300, L501.9060, L100.0100 #### [facility] [address] [place], [address] Platelet mean volume (Bld) [Entitic vol] 9.2 fL Normal 6.2-12.0 [facility] Comment on above: Order Comment: [id number] 010 Performed By: #### L 500.4050, L501.2300, L501.9060, L100.0100 #### [facility] [address] [place], [address] Platelets (Bld) [#/Vol] 235 10*3/uL Normal 150-450 [facility] Comment on above: Order Comment: 20250814 Performed By: #### L 500.4050, L501.2300, L501.9060, L100.0100 #### [facility] [address] [place], [address] RBC (Bld) [#/Vol] 4.41 10*6/uL Low 4.6-6.2 [facility] Comment on above: Order Comment: 20250814 Performed By: #### L 500.4050, L501.2300, L501.9060, L100.0100 #### [facility] [address] [place], [address] RDW SD 41.1 fl Normal 35.1-43.9 [facility] Comment on above: Order Comment: 20250814 Performed By: #### L 500.4050, L501.2300, L501.9060, L100.0100 #### [facility] [address] [place], [address] WBC (Bld) [#/Vol] 8.9 10*3/uL Normal 4.4-11.0 [facility] Comment on above: Order Comment: 111-2 [id number] 0100 Performed By: #### L 500.4050, L501.2300, L501.9060, L100.0100 #### [facility] [address] [place], [address] Eosinophil percentageOrdered By: Adam Ferraro on 05-28-2025 Eosinophils/100 WBC (Bld) 5.5 % High 0-5 [facility] Erythrocyte distribution wid th ratioOrdered By: Adam Ferraro on 05-28-2025 Erythrocyte distribution width (RBC) [Ratio] 12.5 % 11.6-14.6 [facility] Erythrocyte distribution wid th standard deviationOrdered By: Adam Ferraro on 05-28-2025 Erythrocyte distribution width (RBC) [Ratio] 41.1 fl 35.1-43.9 [facility] Hematocrit Auto (Bld) [Volum e fraction]Ordered By: Adam Ferraro on 05-28-2025 Hematocrit (Bld) [Volume fraction] 39.7 % Low 40-54 [facility] Hemoglobin measurementOrdere d By: Adam Ferraro on 05-28-2025 Hemoglobin (Bld) [Mass/Vol] 13.3 g/dL 13.0-16.5 [facility] Immature granulocytes/100 WB C Auto (Bld)Ordered By: Adam Ferraro on 05-28-2025 Immature granulocytes/100 WBC (Bld) 0.700 % 0.0-0.9 [facility] Comment on above: IG% - Immature Granu locytes (promyelocytes, myelocytes and metamyelocytes) > 1% indicates that a LEFT SHIFT is Present. MCV (mean corpuscular volume ) determinationOrdered By: Adam Ferraro on 05-28-2025 MCV (RBC) [Entitic vol] 90.0 fL 80-94 [facility] Mean corpuscular hemoglobin (MCH) determinationOrdered By: Adam Ferraro 05-28-2025 MCH (RBC) [Entitic mass] 30.2 pg 27.0-32.0 [facility] Mean corpuscular hemoglobin concentration (MCHC) determinationOrdered By: Adam Ferraro on 05-28-2025 MCHC (RBC) [Mass/Vol] 33.5 g/dL 32-36 [facility] Mean platelet volume determi nationOrdered By: Adam Ferraro on 05-28-2025 Platelet mean volume (Bld) [Entitic vol] 9.2 fL 6.2-12.0 [facility] Monocyte percentageOrdered B y: Adam Ferraro on 05-28-2025 Monocytes/100 WBC (Bld) 11.1 % High 0-10 [facility] Neutrophil percentageOrdered By: Adam Ferraro on 05-28-2025 Neutrophils/100 WBC (Bld) 58.2 % 47-70 [facility] Nucleated red blood cell per centageOrdered By: Adam Ferraro on 05-28-2025 Nucleated RBC/100 WBC (Bld) [Ratio] 0 % 0-5 [facility] Platelet countOrdered By: Sabino Ferraro on 05-28-2025 Platelets (Bld) [#/Vol] 235 10*3/uL 150-450 [facility] RBC Auto (Bld) [#/Vol]Ordere d By: Adam Ferraro on 05-28-2025 RBC (Bld) [#/Vol] 4.41 10*6/uL Low 4.6-6.2 [facility] White blood cell (WBC) count Ordered By: Adam Ferraro on 05-28-2025 WBC (Bld) [#/Vol] 8.9 10*3/uL 4.4-11.0 [facility] Protein+Creatinine Ratio,Uri neon 05-27-2025 PROT:CRE RATIO 172 mg/g CRE Normal 0-200 [facility] Comment on above: Performed By: #### L 500.4050, L501.2300, L501.9060, L100.0100 #### [facility] [address] [place], [place], [address] PROTEIN,UR.RAN. < 6.0 Normal 0.0-12.0 [facility] Comment on above: Performed By: #### L 500.4050, L501.2300, L501.9060, L100.0100 #### [facility] [address] [place], [address] UR CREAT 25.50 mg/dL Low 39.00-259.0 0 [facility] Comment on above: Performed By: #### L 500.4050, L501.2300, L501.9060, L100.0100 #### [facility] [address] [place], [address] Uric Acidon 05-27-2025 URIC 6.3 mg/dL Normal 3.5-7.2 [facility] Comment on above: Order Comment: URIC ACID ADDED TO 05/24/25 LABWORK Result Comment: The drugs N-Acetylcysteine and Metamizole may falsely depress this assay. Performed By: #### L 100.0500, L500.4050, L501.1400 #### [facility] [address] [place], [address] Urinalysis, Routine (Dipstic k)on 05-27-2025 BILIRUBIN URINE Negative Normal Negative [facility] Comment on above: Order Comment: [id number] Performed By: #### L 500.4050, L501.2300, L501.9060, L100.0100 #### [facility] [address] [place], [address] Clarity (U) Clear Normal Clear [facility] Comment on above: Order Comment: 20250814 Performed By: #### L 500.4050, L501.2300, L501.9060, L100.0100 #### [facility] [address] [place], [address] Color (U) Straw Normal Yellow [facility] Comment on above: Order Comment: 20250814 Performed By: #### L 500.4050, L501.2300, L501.9060, L100.0100 #### [facility] [address] [place], [address] GLUCOSE, UR Normal Normal Normal [facility] Comment on above: Order Comment: 20250814 Performed By: #### L 500.4050, L501.2300, L501.9060, L100.0100 #### [facility] [address] [place], [address] KETONE UR Negative Normal Negative [facility] Comment on above: Order Comment: 20250814 Performed By: #### L 500.4050, L501.2300, L501.9060, L100.0100 #### [facility] [address] [place], [address] LEUK ESTERASE 500 /ul Abnormal Negative [facility] Comment on above: Order Comment: 20250814 Performed By: #### L 500.4050, L501.2300, L501.9060, L100.0100 #### [facility] [address] [place], [address] Nitrite Ql (U) Negative Normal Negative [facility] Comment on above: Order Comment: 20250814 Performed By: #### L 500.4050, L501.2300, L501.9060, L100.0100 #### [facility] [address] [place], [address] OCCULT BLOOD-UR Negative Normal Negative [facility] Comment on above: Order Comment: 20250814 Performed By: #### L 500.4050, L501.2300, L501.9060, L100.0100 #### [facility] [address] [place], [address] pH UR 6.5 Normal 5.0 - 8.0 [facility] Comment on above: Order Comment: 20250814 Performed By: #### L 500.4050, L501.2300, L501.9060, L100.0100 #### [facility] [address] [place], [address] PROT DIPSTX Negative Normal Negative [facility] Comment on above: Order Comment: 20250814 Performed By: #### L 500.4050, L501.2300, L501.9060, L100.0100 #### [facility] [address] [place], [address] SP.GR. DIPSTX 1.005 Normal 1.002-1.030 [facility] Comment on above: Order Comment: 20250814 Performed By: #### L 500.4050, L501.2300, L501.9060, L100.0100 #### [facility] [address] [place], [address] UROBILI Normal Normal Normal [facility] Comment on above: Order Comment: 20250814 Performed By: #### L 500.4050, L501.2300, L501.9060, L100.0100 #### [facility] [address] [place], [address] Bilirubin Test strip Ql (U)O rdered By: Adam Ferraro on 05-26-2025 Bilirubin Ql (U) Negative Negative [facility] Ketones Test strip Ql (U)Ord ered By: Adam Ferraro on 05-26-2025 Ketones Ql (U) Negative Negative [facility] Nitrite Test strip Ql (U)Ord ered By: Adam Ferraro on 05-26-2025 Nitrite Ql (U) Negative Negative [facility] Protein Test strip Ql (U)Ord ered By: Adam Ferraro on 05-26-2025 Protein Ql (U) Negative Negative [facility] Random urine creatinine you urement (mass/volume)Ordered By: Adam Ferraro on 05-26-2025 Creatinine Unsp time (U) [Mass/Vol] 25.50 mg/dL Low 39.00-259.0 0 [facility] Urine clarityOrdered By: Benoit Ferraro on 05-26-2025 Clarity (U) Clear Clear [facility] Urine color determinationOrd ered By: Adam Ferraro on 05-26-2025 Color (U) Straw Yellow [facility] Urine cultureOrdered By: Benoit Ferraro on 05-26-2025 Bacteria identified Cx Nom (U) Positive Abnormal [facility] Urine glucose detectionOrder ed By: Adam Ferraro on 05-26-2025 Glucose Ql (U) Normal mg/dl Normal [facility] Urine leukocyte esterase det ection by dipstickOrdered By: Adam Ferraro on 05-26-2025 Leukocyte esterase Test strip Ql (U) 500 /ul High Negative [facility] Urine pHOrdered By: Adam Ferraro on 05-26-2025 pH (U) 6.5 [pH] 5.0 - 8.0 [facility] Urine protein measurement (m ass/volume)Ordered By: Adam Ferraro on 05-26-2025 Protein (U) [Mass/Vol] mg/dL 0.0-12.0 [facility] Urine protein/creatinine mas s ratioOrdered By: Adam Ferraro on 05-26-2025 Protein/Creatinine (U) [Mass ratio] 172 mg/g CRE 0-200 [facility] Urine specific gravity measu rementOrdered By: Adam Ferraro on 05-26-2025 Specific gravity (U) [Rel density] 1.005 1.002-1.030 [facility] Urine urobilinogen measureme ntOrdered By: Adam Ferraro on 05-26-2025 Urobilinogen Ql (U) Normal mg/dl Normal [facility] Anion gap in Serum or Plasma Ordered By: Adam Ferraro on 05-24-2025 Anion gap [Moles/Vol] 10 mmol/L 5-15 [facility] BUN/creatinine ratioOrdered By: Adam Ferraro on 05-24-2025 Urea nitrogen/Creatinine [Mass ratio] 11.9 mg/mg 10-20 [facility] Bilirubin, totalOrdered By: Adam Ferraro on 05-24-2025 Bilirubin [Mass/Vol] 0.15 mg/dL 0.00-1.30 [facility] CBC-Complete Blood Cnt No Di ffon 05-24-2025 Erythrocyte distribution width (RBC) [Ratio] 12.7 % Normal 11.6-14.6 [facility] Comment on above: Order Comment: 111.2 Performed By: #### L 100.0500, L500.4050, L501.1400 #### [facility] [address] [place], [address] Hematocrit (Bld) [Volume fraction] 39.2 % Low 40-54 [facility] Comment on above: Order Comment: 111.2 Performed By: #### L 100.0500, L500.4050, L501.1400 #### [facility] [address] [place], [address] Hemoglobin (Bld) [Mass/Vol] 12.9 g/dL Low 13.0-16.5 [facility] Comment on above: Order Comment: 111.2 Performed By: #### L 100.0500, L500.4050, L501.1400 #### [facility] [address] [place], [address] MCH (RBC) [Entitic mass] 30.1 pg Normal 27.0-32.0 [facility] Comment on above: Order Comment: 111.2 Performed By: #### L 100.0500, L500.4050, L501.1400 #### [facility] [address] [place], [address] MCHC (RBC) [Mass/Vol] 32.9 g/dL Normal 32-36 [facility] Comment on above: Order Comment: 111.2 Performed By: #### L 100.0500, L500.4050, L501.1400 #### [facility] [address] [place], [address] MCV (RBC) [Entitic vol] 91.6 fL Normal 80-94 [facility] Comment on above: Order Comment: 111.2 Performed By: #### L 100.0500, L500.4050, L501.1400 #### [facility] [address] [place], [address] Platelet mean volume (Bld) [Entitic vol] 9.2 fL Normal 6.2-12.0 [facility] Comment on above: Order Comment: 111.2 Performed By: #### L 100.0500, L500.4050, L501.1400 #### [facility] [address] [place], [address] Platelets (Bld) [#/Vol] 247 10*3/uL Normal 150-450 [facility] Comment on above: Order Comment: 111.2 Performed By: #### L 100.0500, L500.4050, L501.1400 #### [facility] [address] [place], [address] RBC (Bld) [#/Vol] 4.28 10*6/uL Low 4.6-6.2 [facility] Comment on above: Order Comment: 111.2 Performed By: #### L 100.0500, L500.4050, [id number] #### [facility] [address] [place], [address] RDW SD 42.1 fl Normal 35.1-43.9 [facility] Comment on above: Order Comment: 111.2 Performed By: #### L 100.0500, L500.4050, [id number] #### [facility] [address] [place], [address] WBC (Bld) [#/Vol] 10.3 10*3/uL Normal 4.4-11.0 [facility] Comment on above: Order Comment: 111.2 Performed By: #### L 100.0500, L500.4050, [id number] #### [facility] [address] [place], [address] Carbon dioxide, total [Moles /volume] in Central venous bloodOrdered By: Adam Ferraro on 05-24-2025 CO2 [Moles/Vol] 21.9 mmol/L 21.0-32.0 [facility] Chloride assayOrdered By: Sabino Ferraro on 05-24-2025 Chloride [Moles/Vol] 107 mmol/L 98-108 [facility] Comprehensive Metabolic Prof ilon 05-24-2025 Albumin [Mass/Vol] 3.7 g/dL Normal 3.4-4.8 [facility] Comment on above: Order Comment: 111.2 Performed By: #### L 100.0500, L500.4050, L501.1400 #### [facility] [address] [place], [address] Albumin/Globulin [Mass ratio] 1.6 {ratio} Normal 0.9-2.4 [facility] Comment on above: Order Comment: 111.2 Performed By: #### L 100.0500, L500.4050, L501.1400 #### [facility] [address] [place], [address] ALK PHOS 80 U/L Normal 40-129 [facility] Comment on above: Order Comment: 111.2 Performed By: #### L 100.0500, L500.4050, [id number] #### [facility] [address] [place], [address] ALT [Catalytic activity/Vol] 10 U/L Normal <=46 [facility] Comment on above: Order Comment: 111.2 Performed By: #### L 100.0500, L500.4050, [id number] #### [facility] [address] [place], [address] AST [Catalytic activity/Vol] 12 U/L Normal <=37 [facility] Comment on above: Order Comment: 111.2 Performed By: #### L 100.0500, L500.4050, [id number] #### [facility] [address] [place], [address] Bilirubin [Mass/Vol] 0.15 mg/dL Normal 0.00-1.30 [facility] Comment on above: Order Comment: 111.2 Performed By: #### L 100.0500, L500.4050, [id number] #### [facility] [address] [place], [address] BUN/CRE 11.9 RATIO Normal 10-20 [facility] Comment on above: Order Comment: 111.2 Performed By: #### L 100.0500, L500.4050, [id number] #### [facility] [address] [place], [address] Calcium [Mass/Vol] 9.2 mg/dL Normal 7.6-11.0 [facility] Comment on above: Order Comment: 111.2 Performed By: #### L 100.0500, L500.4050, [id number] #### [facility] [address] [place], [address] Chloride [Moles/Vol] 107 mmol/L Normal 98-108 [facility] Comment on above: Order Comment: 111.2 Performed By: #### L 100.0500, L500.4050, [id number] #### [facility] [address] [place], [address] CO2 [Moles/Vol] 21.9 mmol/L Normal 21.0-32.0 [facility] Comment on above: Order Comment: 111.2 Performed By: #### L 100.0500, L500.4050, [id number] #### [facility] [address] [place], [address] Creatinine [Mass/Vol] 2.10 mg/dL High 0.70-1.20 [facility] Comment on above: Order Comment: 111.2 Performed By: #### L 100.0500, L500.4050, L501.1400 #### [facility] [address] [place], [address] GAP 10 Normal 5-15 [facility] Comment on above: Order Comment: 111.2 Performed By: #### L 100.0500, L500.4050, L501.1400 #### [facility] [address] [place], [address] GFR/1.73 sq M.predicted among non-blacks MDRD (S/P/Bld) [Vol rate/Area] 35 mL/min/{1.73_m2} Low >60 [facility] Comment on above: Order Comment: 111.2 Result Comment: mL/m in/1.73m2 CKD-EPI Creatinine Equation (2020) Performed By: #### L 100.0500, L500.4050, L501.1400 #### [facility] [address] [place], [address] Globulin (S) [Mass/Vol] 2.3 g/dL Normal 2.2-4.2 [facility] Comment on above: Order Comment: 111.2 Performed By: #### L 100.0500, L500.4050, L501.1400 #### [facility] [address] [place], [address] Glucose [Mass/Vol] 116 mg/dL High 70-99 [facility] Comment on above: Order Comment: 111.2 Performed By: #### L 100.0500, L500.4050, L501.1400 #### [facility] [address] [place], [address] Potassium [Moles/Vol] 4.4 mmol/L Normal 3.3-5.1 [facility] Comment on above: Order Comment: 111.2 Performed By: #### L 100.0500, L500.4050, L501.1400 #### [facility] [address] [place], [address] Sodium [Moles/Vol] 139 mmol/L Normal 133-145 [facility] Comment on above: Order Comment: 111.2 Performed By: #### L 100.0500, L500.4050, L501.1400 #### [facility] [address] [place], [address] T PROT 6.0 g/dL Normal 5.9-8.4 [facility] Comment on above: Order Comment: 111.2 Performed By: #### L 100.0500, L500.4050, L501.1400 #### [facility] [address] [place], [address] Urea nitrogen [Mass/Vol] 25 mg/dL High 4-19 [facility] Comment on above: Order Comment: 111.2 Performed By: #### L 100.0500, L500.4050, L501.1400 #### [facility] [address] [place], [address] Erythrocyte distribution wid th ratioOrdered By: Adam Ferraro on 05-24-2025 Erythrocyte distribution width (RBC) [Ratio] 12.7 % 11.6-14.6 [facility] Erythrocyte distribution wid th standard deviationOrdered By: Adam Ferraro on 05-24-2025 Erythrocyte distribution width (RBC) [Ratio] 42.1 fl 35.1-43.9 [facility] Glomerular filtration rate ( GFR) estimation/1.73 sq m using serum, plasma, or whole bOrdered By: Adam Ferraro on 05-24-2025 GFR/1.73 sq M.predicted among non-blacks MDRD (S/P/Bld) [Vol rate/Area] 35 mL/min/{1.73_m2} Low >60 [facility] Comment on above: mL/min/1.73m2 CKD-EP I Creatinine Equation (2020) Hematocrit Auto (Bld) [Volum e fraction]Ordered By: Adam Ferraro on 05-24-2025 Hematocrit (Bld) [Volume fraction] 39.2 % Low 40-54 [facility] Hemoglobin measurementOrdere d By: Adam Ferraro on 05-24-2025 Hemoglobin (Bld) [Mass/Vol] 12.9 g/dL Low 13.0-16.5 [facility] - Chemistry and C hemistry - challengeOrdered By: Adam Ferraro on 05-24-2025 AST [Catalytic activity/Vol] 12 U/L <38 [facility] MCV (mean corpuscular volume ) determinationOrdered By: Adam Ferraro on 05-24-2025 MCV (RBC) [Entitic vol] 91.6 fL 80-94 [facility] Mean corpuscular hemoglobin (MCH) determinationOrdered By: Adam Ferraro on 05-24-2025 MCH (RBC) [Entitic mass] 30.1 pg 27.0-32.0 [facility] Mean corpuscular hemoglobin concentration (MCHC) determinationOrdered By: Adam Ferraro on 05-24-2025 MCHC (RBC) [Mass/Vol] 32.9 g/dL 32-36 [facility] Mean platelet volume determi nationOrdered By: Adam Ferraro on 05-24-2025 Platelet mean volume (Bld) [Entitic vol] 9.2 fL 6.2-12.0 [facility] Platelet countOrdered By: Sabino Ferraro on 05-24-2025 Platelets (Bld) [#/Vol] 247 10*3/uL 150-450 [facility] Potassium measurement (mass/ volume)Ordered By: Adam Ferraro on 05-24-2025 Potassium (Unsp spec) [Mass/Vol] 4.4 mmol/L 3.3-5.1 [facility] RBC Auto (Bld) [#/Vol]Ordere d By: Adam Ferraro on 05-24-2025 RBC (Bld) [#/Vol] 4.28 10*6/uL Low 4.6-6.2 [facility] Serum creatinine measurement (mass/volume)Ordered By: Adam Ferraro on 05-24-2025 Creatinine [Mass/Vol] 2.10 mg/dL High 0.70-1.20 [facility] Serum globulin measurementOr dered By: Adam Ferraro on 05-24-2025 Globulin (S) [Mass/Vol] 2.3 g/dL 2.2-4.2 [facility] Serum glucose measurement (m ass/volume)Ordered By: Adam Ferraro on 05-24-2025 Glucose [Mass/Vol] 116 mg/dL High 70-99 [facility] Serum or plasma alanine sesay otransferase (ALT) measurementOrdered By: Adam Ferraro on 05-24-2025 ALT [Catalytic activity/Vol] 10 U/L <47 [facility] Serum or plasma albumin you urement (mass/volume)Ordered By: Adam Ferraro on 05-24-2025 Albumin [Mass/Vol] 3.7 g/dL 3.4-4.8 [facility] Serum or plasma albumin/glob ulin mass ratioOrdered By: Adam Ferraro on 05-24-2025 Albumin/Globulin [Mass ratio] 1.6 {ratio} 0.9-2.4 [facility] Serum or plasma alkaline hal sphatase measurementOrdered By: Adam Ferraro on 05-24-2025 ALP [Catalytic activity/Vol] 80 U/L 40-129 [facility] Serum or plasma calcium you urement (mass/volume)Ordered By: Adam Ferraro on 05-24-2025 Calcium [Mass/Vol] 9.2 mg/dL 7.6-11.0 [facility] Serum or plasma urea nitroge n measurement (mass/volume)Ordered By: Adam Ferraro on 05-24-2025 Urea nitrogen [Mass/Vol] 25 mg/dL High 4-19 [facility] Serum or plasma uric acid me asurement (mass/volume)Ordered By: Adam Ferraro on 05-24-2025 Urate [Mass/Vol] 6.3 mg/dL 3.5-7.2 [facility] Comment on above: The drugs N-Acetylcy steine and Metamizole may falsely depress this assay. Sodium levelOrdered By: Spike Ferraro on 05-24-2025 Sodium [Moles/Vol] 139 mmol/L 133-145 [facility] Total proteinOrdered By: Benoit Ferraro on 05-24-2025 Protein [Mass/Vol] 6.0 g/dL 5.9-8.4 [facility] White blood cell (WBC) count Ordered By: Adam Ferraro on 05-24-2025 WBC (Bld) [#/Vol] 10.3 10*3/uL 4.4-11.0 [facility] Lithiumon 05-02-2025 LI 0.53 mmol/L Low 0.60-1.20 [facility] Comment on above: Order Comment: 111-2 Performed By: #### L 500.4050, L501.2300, L501.9060, L100.0100 #### [facility] [address] [place], [place], [address] Serum or plasma uric acid me asurement (mass/volume)Ordered By: Alfredo Phipps on 04-26-2025 Urate [Mass/Vol] 6.3 mg/dL 3.5-7.2 [facility] Comment on above: The drugs N-Acetylcy steine and Metamizole may falsely depress this assay. Uric Acidon 04-26-2025 URIC 6.3 mg/dL Normal 3.5-7.2 [facility] Comment on above: Order Comment: 111-2 Result Comment: The drugs N-Acetylcysteine and Metamizole may falsely depress this assay. Performed By: #### L 501.1400 #### [facility] [address] [place], [place], [address] Absolute lymphocyte countOrd ered By: Adam Ferraro on 04-24-2025 Lymphocytes Auto (Unsp spec) [#/Vol] 2.17 10*3/uL 0.83-4.51 [facility] Absolute neutrophil countOrd ered By: Adam Ferraro on 04-24-2025 Neutrophils (Bld) [#/Vol] 6.4 10*3/uL 2.0-7.7 [facility] Anion gap in Serum or Plasma Ordered By: Adam Ferraro on 04-24-2025 Anion gap [Moles/Vol] 12 mmol/L 5-15 [facility] Automated lymphocyte count a s percentage of total leukocytesOrdered By: Adam Ferraro on 04-24-2025 Lymphocytes/100 WBC Auto (Unsp spec) 21.0 % - [facility] BUN/creatinine ratioOrdered By: Adam Ferraro on 04-24-2025 Urea nitrogen/Creatinine [Mass ratio] 10.5 mg/mg 10-20 [facility] Basophil percentageOrdered B y: Adam Ferraro on 04-24-2025 Basophils/100 WBC (Bld) 1.1 % High 0-1 [facility] Bilirubin, totalOrdered By: Adam Ferraro on 04-24-2025 Bilirubin [Mass/Vol] 0.16 mg/dL 0.00-1.30 [facility] CBC W/Diff, Automatedon 04-14 Absolute Lymph 2.17 X10 3/uL Normal 0.83-4.51 [facility] Comment on above: Order Comment: 111.2 Performed By: #### L 501.2300, L500.4050, L501.9060, L100.0100 #### [facility] [address] [place], [address] Absolute Neut 6.4 X10 3/uL Normal 2.0-7.7 [facility] Comment on above: Order Comment: 111.2 Performed By: #### L 501.2300, L500.4050, L501.9060, L100.0100 #### [facility] [address] [place], [address] Basophils/100 WBC (Bld) 1.1 % High 0-1 [facility] Comment on above: Order Comment: 111.2 Performed By: #### L 501.2300, L500.4050, L501.9060, L100.0100 #### [facility] [address] [place], [address] Eosinophils/100 WBC (Bld) 5.1 % High 0-5 [facility] Comment on above: Order Comment: 111.2 Performed By: #### L 501.2300, L500.4050, L501.9060, L100.0100 #### [facility] [address] [place], [address] Erythrocyte distribution width (RBC) [Ratio] 13.1 % Normal 11.6-14.6 [facility] Comment on above: Order Comment: 111.2 Performed By: #### L 501.2300, L500.4050, L501.9060, L100.0100 #### [facility] [address] [place], [address] Hematocrit (Bld) [Volume fraction] 38.2 % Low 40-54 [facility] Comment on above: Order Comment: 111.2 Performed By: #### L 501.2300, L500.4050, L501.9060, L100.0100 #### [facility] [address] [place], [address] Hemoglobin (Bld) [Mass/Vol] 12.7 g/dL Low 13.0-16.5 [facility] Comment on above: Order Comment: 111.2 Performed By: #### L 501.2300, L500.4050, L501.9060, L100.0100 #### [facility] [address] [place], [address] IG% 0.700 Normal 0.0-0.9 [facility] Comment on above: Order Comment: 111.2 Result Comment: IG% - Immature Granulocytes (promyelocytes, myelocytes and metamyelocytes) > 1% indicates that a LEFT SHIFT is Present. Performed By: #### L 501.2300, L500.4050, L501.9060, L100.0100 #### [facility] [address] [place], [address] Lymphocytes/100 WBC (Bld) 21.0 % Normal 19-41 [facility] Comment on above: Order Comment: 111.2 Performed By: #### L 501.2300, L500.4050, L501.9060, L100.0100 #### [facility] [address] [place], [address] MCH (RBC) [Entitic mass] 30.4 pg Normal 27.0-32.0 [facility] Comment on above: Order Comment: 111.2 Performed By: #### L 501.2300, L500.4050, L501.9060, L100.0100 #### [facility] [address] [place], [address] MCHC (RBC) [Mass/Vol] 33.2 g/dL Normal 32-36 [facility] Comment on above: Order Comment: 111.2 Performed By: #### L 501.2300, L500.4050, L501.9060, L100.0100 #### [facility] [address] [place], [address] MCV (RBC) [Entitic vol] 91.4 fL Normal 80-94 [facility] Comment on above: Order Comment: 111.2 Performed By: #### L 501.2300, L500.4050, L501.9060, L100.0100 #### [facility] [address] [place], [address] Monocytes/100 WBC (Bld) 9.9 % Normal 0-10 [facility] Comment on above: Order Comment: 111.2 Performed By: #### L 501.2300, L500.4050, L501.9060, L100.0100 #### [facility] [address] [place], [address] Neutrophils/100 WBC (Bld) 62.2 % Normal 47-70 [facility] Comment on above: Order Comment: 111.2 Performed By: #### L 501.2300, L500.4050, L501.9060, L100.0100 #### [facility] [address] [place], [address] Nucleated RBC (Bld) [#/Vol] 0 10*3/uL Normal 0-5 [facility] Comment on above: Order Comment: 111.2 Performed By: #### L 501.2300, L500.4050, L501.9060, L100.0100 #### [facility] [address] [place], [address] Platelet mean volume (Bld) [Entitic vol] 9.4 fL Normal 6.2-12.0 [facility] Comment on above: Order Comment: 111.2 Performed By: #### L 501.2300, L500.4050, L501.9060, L100.0100 #### [facility] [address] [place], [address] Platelets (Bld) [#/Vol] 245 10*3/uL Normal 150-450 [facility] Comment on above: Order Comment: 111.2 Performed By: #### L 501.2300, L500.4050, L501.9060, L100.0100 #### [facility] [address] [place], [address] RBC (Bld) [#/Vol] 4.18 10*6/uL Low 4.6-6.2 [facility] Comment on above: Order Comment: 111.2 Performed By: #### L 501.2300, L500.4050, L501.9060, L100.0100 #### [facility] [address] [place], [address] RDW SD 43.9 fl Normal 35.1-43.9 [facility] Comment on above: Order Comment: 111.2 Performed By: #### L 501.2300, L500.4050, L501.9060, L100.0100 #### [facility] [address] [place], [address] WBC (Bld) [#/Vol] 10.3 10*3/uL Normal 4.4-11.0 [facility] Comment on above: Order Comment: 111.2 Performed By: #### L 501.2300, L500.4050, L501.9060, L100.0100 #### [facility] [address] [place], [address] Carbon dioxide, total [Moles /volume] in Central venous bloodOrdered By: Adam Ferraro on 04-24-2025 CO2 [Moles/Vol] 21.9 mmol/L 21.0-32.0 [facility] Chloride assayOrdered By: Saibno Ferraro on 04-24-2025 Chloride [Moles/Vol] 107 mmol/L 98-108 [facility] Comprehensive Metabolic Prof ilon 04-24-2025 Albumin [Mass/Vol] 3.5 g/dL Normal 3.4-4.8 [facility] Comment on above: Order Comment: 111-2 Performed By: #### L 500.4050, L501.2300, L501.9060, L100.0100 #### [facility] [address] [place], [address] Albumin/Globulin [Mass ratio] 1.5 {ratio} Normal 0.9-2.4 [facility] Comment on above: Order Comment: 111-2 Performed By: #### L 500.4050, L501.2300, L501.9060, L100.0100 #### [facility] [address] [place], [address] ALK PHOS 76 U/L Normal 40-129 [facility] Comment on above: Order Comment: 111-2 Performed By: #### L 500.4050, L501.2300, L501.9060, L100.0100 #### [facility] [address] [place], [address] ALT [Catalytic activity/Vol] 11 U/L Normal <=46 [facility] Comment on above: Order Comment: 111-2 Performed By: #### L 500.4050, L501.2300, L501.9060, L100.0100 #### [facility] [address] [place], [address] AST [Catalytic activity/Vol] 16 U/L Normal <=37 [facility] Comment on above: Order Comment: 111-2 Performed By: #### L 500.4050, L501.2300, L501.9060, L100.0100 #### [facility] [address] [place], [address] Bilirubin [Mass/Vol] 0.16 mg/dL Normal 0.00-1.30 [facility] Comment on above: Order Comment: 111-2 Performed By: #### L 500.4050, L501.2300, L501.9060, L100.0100 #### [facility] [address] [place], [address] BUN/CRE 10.5 RATIO Normal 10-20 [facility] Comment on above: Order Comment: 111-2 Performed By: #### L 500.4050, L501.2300, L501.9060, L100.0100 #### [facility] [address] [place], [address] Calcium [Mass/Vol] 9.3 mg/dL Normal 7.6-11.0 [facility] Comment on above: Order Comment: 111-2 Performed By: #### L 500.4050, L501.2300, L501.9060, L100.0100 #### [facility] [address] [place], [address] Chloride [Moles/Vol] 107 mmol/L Normal 98-108 [facility] Comment on above: Order Comment: 111-2 Performed By: #### L 500.4050, L501.2300, L501.9060, L100.0100 #### [facility] [address] [place], [address] CO2 [Moles/Vol] 21.9 mmol/L Normal 21.0-32.0 [facility] Comment on above: Order Comment: 111-2 Performed By: #### L 500.4050, L501.2300, L501.9060, L100.0100 #### [facility] [address] [place], [address] Creatinine [Mass/Vol] 2.41 mg/dL High 0.70-1.20 [facility] Comment on above: Order Comment: 111-2 Performed By: #### L 500.4050, L501.2300, L501.9060, L100.0100 #### [facility] [address] [place], [address] GAP 12 Normal 5-15 [facility] Comment on above: Order Comment: 111-2 Performed By: #### L 500.4050, L501.2300, L501.9060, L100.0100 #### [facility] [address] [place], [address] GFR/1.73 sq M.predicted among non-blacks MDRD (S/P/Bld) [Vol rate/Area] 30 mL/min/{1.73_m2} Low >60 [facility] Comment on above: Order Comment: 111-2 Result Comment: mL/m in/1.73m2 CKD-EPI Creatinine Equation (2020) Performed By: #### L 500.4050, L501.2300, L501.9060, L100.0100 #### [facility] [address] [place], [address] Globulin (S) [Mass/Vol] 2.3 g/dL Normal 2.2-4.2 [facility] Comment on above: Order Comment: 111-2 Performed By: #### L 500.4050, L501.2300, [id number], L100.0100 #### [facility] [address] [place], [address] Glucose [Mass/Vol] 123 mg/dL High 70-99 [facility] Comment on above: Order Comment: 111-2 Performed By: #### L 500.4050, L501.2300, [id number], L100.0100 #### [facility] [address] [place], [address] Potassium [Moles/Vol] 4.6 mmol/L Normal 3.3-5.1 [facility] Comment on above: Order Comment: 111-2 Performed By: #### L 500.4050, L501.2300, [id number], L100.0100 #### [facility] [address] [place], [address] Sodium [Moles/Vol] 140 mmol/L Normal 133-145 [facility] Comment on above: Order Comment: 111-2 Performed By: #### L 500.4050, L501.2300, [id number], L100.0100 #### [facility] [address] [place], [address] T PROT 5.9 g/dL Normal 5.9-8.4 [facility] Comment on above: Order Comment: 111-2 Performed By: #### L 500.4050, L501.2300, [id number], L100.0100 #### [facility] [address] [place], [address] Urea nitrogen [Mass/Vol] 25 mg/dL High 4-19 [facility] Comment on above: Order Comment: 111-2 Performed By: #### L 500.4050, L501.2300, L501.9060, L100.0100 #### [facility] [address] [place], [address] Eosinophil percentageOrdered By: Adam Ferraro on 04-24-2025 Eosinophils/100 WBC (Bld) 5.1 % High 0-5 [facility] Erythrocyte distribution wid th ratioOrdered By: Adam Ferraro on 04-24-2025 Erythrocyte distribution width (RBC) [Ratio] 13.1 % 11.6-14.6 [facility] Erythrocyte distribution wid th standard deviationOrdered By: Adam Ferraro on 04-24-2025 Erythrocyte distribution width (RBC) [Ratio] 43.9 fl 35.1-43.9 [facility] Glomerular filtration rate ( GFR) estimation/1.73 sq m using serum, plasma, or whole bOrdered By: Adam Ferraro on 04-24-2025 GFR/1.73 sq M.predicted among non-blacks MDRD (S/P/Bld) [Vol rate/Area] 30 mL/min/{1.73_m2} Low >60 [facility] Comment on above: mL/min/1.73m2 CKD-EP I Creatinine Equation (2020) Hematocrit Auto (Bld) [Volum e fraction]Ordered By: Adam Ferraro on 04-24-2025 Hematocrit (Bld) [Volume fraction] 38.2 % Low 40-54 [facility] Hemoglobin measurementOrdere d By: Adam Ferraro on 04-24-2025 Hemoglobin (Bld) [Mass/Vol] 12.7 g/dL Low 13.0-16.5 [facility] Immature granulocytes/100 WB C Auto (Bld)Ordered By: Adam Ferraro on 04-24-2025 Immature granulocytes/100 WBC (Bld) 0.700 % 0.0-0.9 [facility] Comment on above: IG% - Immature Granu locytes (promyelocytes, myelocytes and metamyelocytes) > 1% indicates that a LEFT SHIFT is Present. Laboratory - Chemistry and C hemistry - challengeOrdered By: Adam Ferraro on 04-24-2025 AST [Catalytic activity/Vol] 16 U/L <38 [facility] Lithiumon 04-24-2025 LI 0.60 mmol/L Normal 0.60-1.20 [facility] Comment on above: Order Comment: 111-2 Performed By: #### L 500.4050, L501.2300, L501.9060, L100.0100 #### [facility] [address] [place], [address] MCV (mean corpuscular volume ) determinationOrdered By: Adam Ferraro on 04-24-2025 MCV (RBC) [Entitic vol] 91.4 fL 80-94 [facility] Mean corpuscular hemoglobin (MCH) determinationOrdered By: Adam Ferraro on 04-24-2025 MCH (RBC) [Entitic mass] 30.4 pg 27.0-32.0 [facility] Mean corpuscular hemoglobin concentration (MCHC) determinationOrdered By: Adam Ferraro on 04-24-2025 MCHC (RBC) [Mass/Vol] 33.2 g/dL 32-36 [facility] Mean platelet volume determi nationOrdered By: Adam Ferraro on 04-24-2025 Platelet mean volume (Bld) [Entitic vol] 9.4 fL 6.2-12.0 [facility] Monocyte percentageOrdered B y: Adam Ferraro on 04-24-2025 Monocytes/100 WBC (Bld) 9.9 % 0-10 [facility] Neutrophil percentageOrdered By: Adam Ferraro on 04-24-2025 Neutrophils/100 WBC (Bld) 62.2 % 47-70 [facility] Nucleated red blood cell per centageOrdered By: Adam Ferraro on 04-24-2025 Nucleated RBC/100 WBC (Bld) [Ratio] 0 % 0-5 [facility] Phosphoruson 04-24-2025 Phosphate [Mass/Vol] 4.8 mg/dL High 2.7-4.5 [facility] Comment on above: Order Comment: 111-2 Performed By: #### L 500.4050, L501.2300, L501.9060, L100.0100 #### [facility] [address] [place], [address] Platelet countOrdered By: Sabino Ferraro on 04-24-2025 Platelets (Bld) [#/Vol] 245 10*3/uL 150-450 [facility] Potassium measurement (mass/ volume)Ordered By: Adam Ferraro on 04-24-2025 Potassium (Unsp spec) [Mass/Vol] 4.6 mmol/L 3.3-5.1 [facility] RBC Auto (Bld) [#/Vol]Ordere d By: Adam Ferraro on 04-24-2025 RBC (Bld) [#/Vol] 4.18 10*6/uL Low 4.6-6.2 [facility] Serum creatinine measurement (mass/volume)Ordered By: Adam Ferraro on 04-24-2025 Creatinine [Mass/Vol] 2.41 mg/dL High 0.70-1.20 [facility] Serum globulin measurementOr dered By: Adam Ferraro on 04-24-2025 Globulin (S) [Mass/Vol] 2.3 g/dL 2.2-4.2 [facility] Serum glucose measurement (m ass/volume)Ordered By: Adam Ferraro on 04-24-2025 Glucose [Mass/Vol] 123 mg/dL High 70-99 [facility] Serum or plasma alanine sesay otransferase (ALT) measurementOrdered By: Adam Ferraro on 04-24-2025 ALT [Catalytic activity/Vol] 11 U/L <47 [facility] Serum or plasma albumin you urement (mass/volume)Ordered By: Adam Ferraro on 04-24-2025 Albumin [Mass/Vol] 3.5 g/dL 3.4-4.8 [facility] Serum or plasma albumin/glob ulin mass ratioOrdered By: Adam Ferraro on 04-24-2025 Albumin/Globulin [Mass ratio] 1.5 {ratio} 0.9-2.4 [facility] Serum or plasma alkaline hal sphatase measurementOrdered By: Adam Ferraro on 04-24-2025 ALP [Catalytic activity/Vol] 76 U/L 40-129 [facility] Serum or plasma calcium you urement (mass/volume)Ordered By: Adam Ferraro on 04-24-2025 Calcium [Mass/Vol] 9.3 mg/dL 7.6-11.0 [facility] Serum or plasma urea nitroge n measurement (mass/volume)Ordered By: Adam Ferraro on 04-24-2025 Urea nitrogen [Mass/Vol] 25 mg/dL High 4-19 [facility] Sodium levelOrdered By: Spike Ferraro on 04-24-2025 Sodium [Moles/Vol] 140 mmol/L 133-145 [facility] Total proteinOrdered By: Benoit Ferraro on 04-24-2025 Protein [Mass/Vol] 5.9 g/dL 5.9-8.4 [facility] White blood cell (WBC) count Ordered By: Adam Ferraro on 04-24-2025 WBC (Bld) [#/Vol] 10.3 10*3/uL 4.4-11.0 [facility] Lithiumon 04-01-2025 LI 0.64 mmol/L Normal 0.60-1.20 [facility] Comment on above: Order Comment: 111-2 Performed By: #### L 500.4050, L501.2300, L501.9060, L100.0100 #### [facility] [address] [place], [address] Serum or plasma uric acid me asurement (mass/volume)Ordered By: Alfredo Phipps on 03-27-2025 Urate [Mass/Vol] 6.5 mg/dL 3.5-7.2 [facility] Comment on above: The drugs N-Acetylcy steine and Metamizole may falsely depress this assay. Uric Acidon 03-27-2025 URIC 6.5 mg/dL Normal 3.5-7.2 [facility] Comment on above: Order Comment: 111-2 [id number] Result Comment: The drugs N-Acetylcysteine and Metamizole may falsely depress this assay. Performed By: #### L 500.4050, L501.2300, L501.9060, L100.0100 #### [facility] [address] [place], [address] Microalb:Creat Ratio,Random URon 03-05-2025 Creatinine [Mass/Vol] 72.80 mg/dL Normal 39.00- 259.0 0 [facility] Comment on above: Performed By: #### L 500.4050, L501.2300, L501.9060, L100.0100 #### [facility] [address] [place], [address] MALB:CREAT UNABLE TO CALCULATE Normal [facility] Comment on above: Performed By: #### L 500.4050, L501.2300, L501.9060, L100.0100 #### [facility] [address] [place], [address] MICROALBUMIN,UR < 12.0 Normal NO RANGE EST. [facility] Comment on above: Performed By: #### L 500.4050, L501.2300, L501.9060, L100.0100 #### [facility] [address] [place], [address] Microalbumin/creat ratio urO rdered By: Adam Ferraro on 03-04-2025 Urine microalbumin/creatinine ratio measurement UNABLE TO CALCULATE mg/g CRE [facility] Random urine creatinine you urement (mass/volume)Ordered By: Adam Ferraro on 03-04-2025 Creatinine Unsp time (U) [Mass/Vol] 72.80 mg/dL 39.00-259.0 0 [facility] Urine albumin measurement wi th detection limit of 20 mg/L or less (mass/volume)Ordered By: Adam Ferraro on 03-04-2025 Albumin DL <= 20 mg/L (U) [Mass/Vol] < 12.0 mg/L NO RANGE EST. [facility] Absolute lymphocyte countOrd ered By: Alfredo Phipps on 02-27-2025 Lymphocytes Auto (Unsp spec) [#/Vol] 1.42 10*3/uL 0.83-4.51 [facility] Absolute neutrophil countOrd ered By: Alfredo Phipps on 02-27-2025 Neutrophils (Bld) [#/Vol] 17.7 10*3/uL High 2.0-7.7 [facility] Anion gap in Serum or Plasma Ordered By: Alfredo Phipps on 02-27-2025 Anion gap [Moles/Vol] 12 mmol/L 5-15 [facility] Automated lymphocyte count a s percentage of total leukocytesOrdered By: Alfredo Phipps on 02-27-2025 Lymphocytes/100 WBC Auto (Unsp spec) 6.9 % Low 19-41 [facility] BUN/creatinine ratioOrdered By: Alfredo Phipps on 02-27-2025 Urea nitrogen/Creatinine [Mass ratio] 12.7 mg/mg 10-20 [facility] Basophil percentageOrdered B y: Alfredo Phipps on 02-27-2025 Basophils/100 WBC (Bld) 0.2 % 0-1 [facility] Bilirubin directOrdered By: Alfredo Phipps on 02-27-2025 Bilirubin.direct [Mass/Vol] 0.10 mg/dL 0.00-0.30 [facility] Bilirubin, Directon 02-28-20 25 Bilirubin.direct [Mass/Vol] 0.10 mg/dL Normal 0.00-0.30 [facility] Comment on above: Order Comment: 111. UNKNOWN [id number] Performed By: #### L 501.9060 #### [facility] [address] [place], [address] Bilirubin, totalOrdered By: Alfredo Phipps on 02-27-2025 Bilirubin [Mass/Vol] 0.19 mg/dL 0.00-1.30 [facility] CBC W/Diff, Automatedon 02-12 Absolute Lymph 1.42 X10 3/uL Normal 0.83-4.51 [facility] Comment on above: Order Comment: [id number] Performed By: #### L 500.4050, L501.2300, L501.9060, L100.0100 #### [facility] [address] [place], [address] Absolute Neut 17.7 X10 3/uL High 2.0-7.7 [facility] Comment on above: Order Comment: [id number] Performed By: #### L 500.4050, L501.2300, L501.9060, L100.0100 #### [facility] [address] [place], [address] Basophils/100 WBC (Bld) 0.2 % Normal 0-1 [facility] Comment on above: Order Comment: [id number] Performed By: #### L 500.4050, L501.2300, L501.9060, L100.0100 #### [facility] [address] [place], [address] Eosinophils/100 WBC (Bld) 0.0 % Normal 0-5 [facility] Comment on above: Order Comment: [id number] Performed By: #### L 500.4050, L501.2300, L501.9060, L100.0100 #### [facility] [address] [place], [address] Erythrocyte distribution width (RBC) [Ratio] 13.3 % Normal 11.6-14.6 [facility] Comment on above: Order Comment: [id number] Performed By: #### L 500.4050, L501.2300, L501.9060, L100.0100 #### [facility] [address] [place], [address] Hematocrit (Bld) [Volume fraction] 39.0 % Low 40-54 [facility] Comment on above: Order Comment: [id number] Performed By: #### L 500.4050, L501.2300, L501.9060, L100.0100 #### [facility] [address] [place], [address] Hemoglobin (Bld) [Mass/Vol] 13.1 g/dL Normal 13.0-16.5 [facility] Comment on above: Order Comment: [id number] Performed By: #### L 500.4050, L501.2300, L501.9060, L100.0100 #### [facility] [address] [place], [address] IG% 0.900 Normal 0.0-0.9 [facility] Comment on above: Order Comment: [id number] Result Comment: IG% - Immature Granulocytes (promyelocytes, myelocytes and metamyelocytes) > 1% indicates that a LEFT SHIFT is Present. Performed By: #### L 500.4050, L501.2300, L501.9060, L100.0100 #### [facility] [address] [place], [address] Lymphocytes/100 WBC (Bld) 6.9 % Low 19-41 [facility] Comment on above: Order Comment: [id number] Performed By: #### L 500.4050, L501.2300, L501.9060, L100.0100 #### [facility] [address] [place], [address] MCH (RBC) [Entitic mass] 30.1 pg Normal 27.0-32.0 [facility] Comment on above: Order Comment: [id number] Performed By: #### L 500.4050, L501.2300, L501.9060, L100.0100 #### [facility] [address] [place], [address] MCHC (RBC) [Mass/Vol] 33.6 g/dL Normal 32-36 [facility] Comment on above: Order Comment: [id number] Performed By: #### L 500.4050, L501.2300, L501.9060, L100.0100 #### [facility] [address] [place], [address] MCV (RBC) [Entitic vol] 89.7 fL Normal 80-94 [facility] Comment on above: Order Comment: [id number] Performed By: #### L 500.4050, L501.2300, L501.9060, L100.0100 #### [facility] [address] [place], [address] Monocytes/100 WBC (Bld) 6.4 % Normal 0-10 [facility] Comment on above: Order Comment: [id number] Performed By: #### L 500.4050, L501.2300, L501.9060, L100.0100 #### [facility] [address] [place], [address] Neutrophils/100 WBC (Bld) 85.6 % High 47-70 [facility] Comment on above: Order Comment: [id number] Performed By: #### L 500.4050, L501.2300, L501.9060, L100.0100 #### [facility] [address] [place], [address] Nucleated RBC (Bld) [#/Vol] 0 10*3/uL Normal 0-5 [facility] Comment on above: Order Comment: [id number] Performed By: #### L 500.4050, L501.2300, L501.9060, L100.0100 #### [facility] [address] [place], [address] Platelet mean volume (Bld) [Entitic vol] 9.3 fL Normal 6.2-12.0 [facility] Comment on above: Order Comment: [id number] Performed By: #### L 500.4050, L501.2300, L501.9060, L100.0100 #### [facility] [address] [place], [address] Platelets (Bld) [#/Vol] 274 10*3/uL Normal 150-450 [facility] Comment on above: Order Comment: [id number] Performed By: #### L 500.4050, L501.2300, L501.9060, L100.0100 #### [facility] [address] [place], [address] RBC (Bld) [#/Vol] 4.35 10*6/uL Low 4.6-6.2 [facility] Comment on above: Order Comment: [id number] Performed By: #### L 500.4050, L501.2300, L501.9060, L100.0100 #### [facility] [address] [place], [address] RDW SD 43.8 fl Normal 35.1-43.9 [facility] Comment on above: Order Comment: [id number] Performed By: #### L 500.4050, L501.2300, L501.9060, L100.0100 #### [facility] [address] [place], [address] WBC (Bld) [#/Vol] 20.6 10*3/uL High 4.4-11.0 [facility] Comment on above: Order Comment: [id number] Performed By: #### L 500.4050, L501.2300, L501.9060, L100.0100 #### [facility] [address] [place], [address] Carbon dioxide, total [Moles /volume] in Central venous bloodOrdered By: Alfredo Phipps on 02-27-2025 CO2 [Moles/Vol] 20.5 mmol/L Low 21.0-32.0 [facility] Chloride assayOrdered By: Chna Fiore on 02-27-2025 Chloride [Moles/Vol] 105 mmol/L 98-108 [facility] Comprehensive Metabolic Prof ilon 02-27-2025 Albumin [Mass/Vol] 3.9 g/dL Normal 3.4-4.8 [facility] Comment on above: Order Comment: 111.2 UNKNOWN 20250701 0000 Performed By: #### L 501.9060 #### [facility] [address] [place], [address] Albumin/Globulin [Mass ratio] 1.6 {ratio} Normal 0.9-2.4 [facility] Comment on above: Order Comment: 111.2 UNKNOWN 20250701 0000 Performed By: #### L 501.9060 #### [facility] [address] [place], [address] ALK PHOS 66 U/L Normal 40-129 [facility] Comment on above: Order Comment: 111.2 UNKNOWN 20250701 0000 Performed By: #### L [id number] #### [facility] [address] [place], [address] ALT [Catalytic activity/Vol] 13 U/L Normal <=46 [facility] Comment on above: Order Comment: 111.2 UNKNOWN 20250701 0000 Performed By: #### L [id number] #### [facility] [address] [place], [address] AST [Catalytic activity/Vol] 11 U/L Normal <=37 [facility] Comment on above: Order Comment: 111.2 UNKNOWN 20250701 0000 Performed By: #### L [id number] #### [facility] [address] [place], [address] Bilirubin [Mass/Vol] 0.19 mg/dL Normal 0.00-1.30 [facility] Comment on above: Order Comment: 111.2 UNKNOWN 20250701 0000 Performed By: #### L [id number] #### [facility] [address] [place], [address] BUN/CRE 12.7 RATIO Normal 10-20 [facility] Comment on above: Order Comment: 111.2 UNKNOWN 20250701 0000 Performed By: #### L [id number] #### [facility] [address] [place], [address] Calcium [Mass/Vol] 9.8 mg/dL Normal 7.6-11.0 [facility] Comment on above: Order Comment: 111.2 UNKNOWN 20250701 0000 Performed By: #### L 501.9060 #### [facility] [address] [place], [address] Chloride [Moles/Vol] 105 mmol/L Normal 98-108 [facility] Comment on above: Order Comment: 111.2 UNKNOWN [id number] 0000 Performed By: #### L [id number] #### [facility] [address] [place], [address] CO2 [Moles/Vol] 20.5 mmol/L Low 21.0-32.0 [facility] Comment on above: Order Comment: 111.2 UNKNOWN 20250701 0000 Performed By: #### L [id number] #### [facility] [address] [place], [address] Creatinine [Mass/Vol] 2.32 mg/dL High 0.70-1.20 [facility] Comment on above: Order Comment: 111.2 UNKNOWN 20250701 Performed By: #### L [id number] #### [facility] [address] [place], [address] GAP 12 Normal 5-15 [facility] Comment on above: Order Comment: 111.2 UNKNOWN 20250701 Performed By: #### L [id number] #### [facility] [address] [place], [address] GFR/1.73 sq M.predicted among non-blacks MDRD (S/P/Bld) [Vol rate/Area] 31 mL/min/{1.73_m2} Low >60 [facility] Comment on above: Order Comment: 111.2 UNKNOWN 20250701 Result Comment: mL/m in/1.73m2 CKD-EPI Creatinine Equation (2020) Performed By: #### L [id number] #### [facility] [address] [place], [address] Globulin (S) [Mass/Vol] 2.4 g/dL Normal 2.2-4.2 [facility] Comment on above: Order Comment: 111.2 UNKNOWN 20250701 Performed By: #### L [id number] #### [facility] [address] [place], [address] Glucose [Mass/Vol] 134 mg/dL High 70-99 [facility] Comment on above: Order Comment: 111.2 UNKNOWN 20250701 0000 Performed By: #### L [id number] #### [facility] [address] [place], [address] Potassium [Moles/Vol] 4.4 mmol/L Normal 3.3-5.1 [facility] Comment on above: Order Comment: 111.2 UNKNOWN 20250701 0000 Performed By: #### L [id number] #### [facility] [address] [place], [address] Sodium [Moles/Vol] 138 mmol/L Normal 133-145 [facility] Comment on above: Order Comment: 111.2 UNKNOWN 20250701 0000 Performed By: #### L [id number] #### [facility] [address] [place], [address] T PROT 6.2 g/dL Normal 5.9-8.4 [facility] Comment on above: Order Comment: 111.2 UNKNOWN 20250701 0000 Performed By: #### L [id number] #### [facility] [address] [place], [address] Urea nitrogen [Mass/Vol] 29 mg/dL High 4-19 [facility] Comment on above: Order Comment: 111.2 UNKNOWN 20250701 0000 Performed By: #### L [id number] #### [facility] [address] [place], [address] Eosinophil percentageOrdered By: Alfredo Phipps on 02-27-2025 Eosinophils/100 WBC (Bld) 0.0 % 0-5 [facility] Erythrocyte distribution wid th (RBC) [Ratio]Ordered By: Alfredo Phipps on 02-27-2025 Erythrocyte distribution width (RBC) [Entitic vol] 43.8 fL 35.1-43.9 [facility] Erythrocyte distribution wid th ratioOrdered By: Alfredo Phipps on 02-27-2025 Erythrocyte distribution width (RBC) [Ratio] 13.3 % 11.6-14.6 [facility] Erythrocyte distribution wid th standard deviationOrdered By: Alfredo Phipps on 02-27-2025 Erythrocyte distribution width (RBC) [Ratio] 43.8 fl 35.1-43.9 [facility] GFR/1.73 sq M.predicted miles g non-blacks MDRD (S/P/Bld) [Vol rate/Area]Ordered By: Alfredo Phipps on 02-27-2025 Estimated GFR (MDRD) Non-Af Amer 31 Low >60 [facility] Comment on above: mL/min/1.73m2 CKD-EP I Creatinine Equation (2020) Glomerular filtration rate ( GFR) estimation/1.73 sq m using serum, plasma, or whole bOrdered By: Alfredo Phipps on 02-27-2025 GFR/1.73 sq M.predicted among non-blacks MDRD (S/P/Bld) [Vol rate/Area] 31 mL/min/{1.73_m2} Low >60 [facility] Comment on above: mL/min/1.73m2 CKD-EP I Creatinine Equation (2020) Hematocrit Auto (Bld) [Volum e fraction]Ordered By: Alfredo Phipps on 02-27-2025 Hematocrit (Bld) [Volume fraction] 39.0 % Low 40-54 [facility] Hemoglobin measurementOrdere d By: Alfredo Phipps on 02-27-2025 Hemoglobin (Bld) [Mass/Vol] 13.1 g/dL 13.0-16.5 [facility] Immature granulocytes/100 WB C Auto (Bld)Ordered By: Alfredo Phipps on 02-27-2025 Immature granulocytes/100 WBC (Bld) 0.900 % 0.0-0.9 [facility] Comment on above: IG% - Immature Granu locytes (promyelocytes, myelocytes and metamyelocytes) > 1% indicates that a LEFT SHIFT is Present. Laboratory - Chemistry and C hemistry - challengeOrdered By: Alfredo Phipps on 02-27-2025 AST [Catalytic activity/Vol] 11 U/L <38 [facility] Lithiumon 02-27-2025 LI 0.60 mmol/L Normal 0.60-1.20 [facility] Comment on above: Order Comment: 111.2 UNKNOWN [id number] 0000 Performed By: #### L [id number] #### [facility] Laboratory [place], [address] [place] levelOrdered By: Jennifer Phipps on 02-27-2025 [place] Level 0.60 mmol/L 0.60-1.20 [facility] Lymphocytes Auto (Unsp spec) [#/Vol]Ordered By: Alfredo Phipps on 02-27-2025 Lymphocytes (Bld) [#/Vol] 1.42 10*3/uL 0.83-4.5 1 [facility] Lymphocytes/100 WBC Auto (Un sp spec)Ordered By: Alfredo Phipps on 02-27-2025 Lymphocytes/100 WBC (Bld) 6.9 % Low 19-41 [facility] MCV (mean corpuscular volume ) determinationOrdered By: Alfredo Phipps on 02-27-2025 MCV (RBC) [Entitic vol] 89.7 fL 80-94 [facility] Mean corpuscular hemoglobin (MCH) determinationOrdered By: Alfredo Phipps on 02-27-2025 MCH (RBC) [Entitic mass] 30.1 pg 27.0-32.0 [facility] Mean corpuscular hemoglobin concentration (MCHC) determinationOrdered By: Alfredo Phipps on 02-27-2025 MCHC (RBC) [Mass/Vol] 33.6 g/dL 32-36 [facility] Mean platelet volume determi nationOrdered By: Alfredo Phipps on 02-27-2025 Platelet mean volume (Bld) [Entitic vol] 9.3 fL 6.2-12.0 [facility] Monocyte percentageOrdered B y: Alfredo Phipps on 02-27-2025 Monocytes/100 WBC (Bld) 6.4 % 0-10 [facility] Neutrophil percentageOrdered By: Alfredo Phipps on 02-27-2025 Neutrophils/100 WBC (Bld) 85.6 % High 47-70 [facility] Nucleated red blood cell per centageOrdered By: Alfredo Phipps on 02-27-2025 Nucleated RBC/100 WBC (Bld) [Ratio] 0 % 0-5 [facility] Platelet countOrdered By: Chan Fiore on 02-27-2025 Platelets (Bld) [#/Vol] 274 10*3/uL 150-450 [facility] Potassium (Unsp spec) [Mass/ Vol]Ordered By: Alfredo Phipps on 02-27-2025 Potassium [Moles/Vol] 4.4 mmol/L 3.3-5.1 [facility] Potassium measurement (mass/ volume)Ordered By: Alfredo Phipps on 02-27-2025 Potassium (Unsp spec) [Mass/Vol] 4.4 mmol/L 3.3-5.1 [facility] RBC Auto (Bld) [#/Vol]Ordere d By: Alfredo Phipps on 02-27-2025 RBC (Bld) [#/Vol] 4.35 10*6/uL Low 4.6-6.2 [facility] Serum creatinine measurement (mass/volume)Ordered By: Alfredo Phipps on 02-27-2025 Creatinine [Mass/Vol] 2.32 mg/dL High 0.70-1.20 [facility] Serum globulin measurementOr dered By: Alfredo Phipps on 02-27-2025 Globulin (S) [Mass/Vol] 2.4 g/dL 2.2-4.2 [facility] Serum glucose measurement (m ass/volume)Ordered By: Alfredo Phipps on 02-27-2025 Glucose [Mass/Vol] 134 mg/dL High 70-99 [facility] Serum or plasma alanine sesay otransferase (ALT) measurementOrdered By: Alfredo Phipps on 02-27-2025 ALT [Catalytic activity/Vol] 13 U/L <47 [facility] Serum or plasma albumin oyu urement (mass/volume)Ordered By: Alfredo Phipps on 02-27-2025 Albumin [Mass/Vol] 3.9 g/dL 3.4-4.8 [facility] Serum or plasma albumin/glob ulin mass ratioOrdered By: Alfredo Phipps on 02-27-2025 Albumin/Globulin [Mass ratio] 1.6 {ratio} 0.9-2.4 [facility] Serum or plasma alkaline hal sphatase measurementOrdered By: Alfredo Phipps on 02-27-2025 ALP [Catalytic activity/Vol] 66 U/L 40-129 [facility] Serum or plasma calcium you urement (mass/volume)Ordered By: Alfredo Phipps on 02-27-2025 Calcium [Mass/Vol] 9.8 mg/dL 7.6-11.0 [facility] Serum or plasma urea nitroge n measurement (mass/volume)Ordered By: Alfredo Phipps on 02-27-2025 Urea nitrogen [Mass/Vol] 29 mg/dL High 4-19 [facility] Sodium levelOrdered By: Raffi Phipps on 02-27-2025 Sodium [Moles/Vol] 138 mmol/L 133-145 [facility] Total proteinOrdered By: Jennifer Phipps on 02-27-2025 Protein [Mass/Vol] 6.2 g/dL 5.9-8.4 [facility] White blood cell (WBC) count Ordered By: Alfredo Phipps on 02-27-2025 WBC (Bld) [#/Vol] 20.6 10*3/uL High 4.4-11.0 [facility] Serum or plasma uric acid me asurement (mass/volume)Ordered By: Adam Ferraro on 02-25-2025 Urate [Mass/Vol] 6.3 mg/dL 3.5-7.2 [facility] Comment on above: The drugs N-Acetylcy steine and Metamizole may falsely depress this assay. Uric Acidon 02-25-2025 URIC 6.3 mg/dL Normal 3.5-7.2 [facility] Comment on above: Order Comment: 111-2 Result Comment: The drugs N-Acetylcysteine and Metamizole may falsely depress this assay. Performed By: #### L [id number], L501.2300, L501.9060, L100.0100 #### [facility] Laboratory [address] [place], [place], [id number] Calculated very low density lipoprotein (VLDL) cholesterol measurementOrdered By: Alfredo Phipps on 02-11-2025 Calculated very low density lipoprotein (VLDL) cholesterol measurement 43 mg/dL High 5-40 [facility] VLDL Cholesterol 43 mg/dL High 5-40 [facility] LDL calc ser/plasOrdered By: Alfredo Phipps on 02-11-2025 Cholesterol in LDL [Mass/Vol] 67 mg/dL [facility] Comment on above: Tusbffmbxf=705-313 m g/dL & Higher Sgpx=221 mg/dL or greater LDL Cholesterol, Calculated 67 mg/dL [facility] Comment on above: Vuobwdbiqf=310-455 m g/dL & Higher Gkjy=540 mg/dL or greater Lipid Profileon 02-11-2025 CHOL:HDL 4.53 Normal [facility] Comment on above: Order Comment: 111.2 UNKNOWN [id number] Performed By: #### L [id number] #### [facility] [address] [place], [place], [id number] (405) Cholesterol [Mass/Vol] 141 mg/dL Normal <=200 [facility] Comment on above: Order Comment: 111.2 UNKNOWN [id number] Result Comment: Chol esterol level, Desirable <200 mg/dL Borderline high cholesterol 200-239 mg/dL High cholesterol >=240 mg/dL Recommendations of the NCEP Adult Treatment Panel for the following risk-cutoff thresholds for the [place] population. Performed By: #### L [id number] #### [facility] [address] [place], [place], [phone] ([phone]) Cholesterol in HDL [Mass/Vol] 31 mg/dL Low [facility] Comment on above: Order Comment: 111.2 UNKNOWN 20250701 Result Comment: Fabienne onal Cholesterol Education Program (NCEP) guidelines: <40 mg/dL: Low HDL-cholesterol (major risk factor for CHD) >= 60 mg/dL: High HDL-cholesterol (negative risk factor for CHD) HDL-cholesterol is affected by a number of factors, e.g. smoking, exercise, hormones, sex and age. Performed By: #### L [id number] #### [facility] [address] [place], [place], [id number] (724) Cholesterol in LDL [Mass/Vol] 67 mg/dL Normal [facility] Comment on above: Order Comment: 111.2 UNKNOWN [id number] Result Comment: Bord fpvzuj=071-597 mg/dL Higher Ktxh=587 mg/dL or greater Performed By: #### L [id number] #### [facility] [address] [place], [place], [id number] Cholesterol in VLDL [Mass/Vol] 43 mg/dL High 5-40 [facility] Comment on above: Order Comment: 111.2 UNKNOWN [id number] 0000 Performed By: #### L [id number] #### [facility] [address] [place], [place], [id number] Triglyceride [Mass/Vol] 215 mg/dL High [facility] Comment on above: Order Comment: 111.2 UNKNOWN [id number] 0000 Result Comment: The drugs N-Acetylcysteine and Metamizole may falsely depress this assay. Normal range: <150 mg/dL Borderline High: 150-199 mg/dL High: 200-499 mg/dL Very High: >500 mg/dL Performed By: #### L [id number] #### [facility] [address] [place], [place], [id number] Screening total cholesterol/ high density lipoprotein (HDL) cholesterol ratioOrdered By: Alfredo Phipps on 02-11-2025 Cholesterol.total/Choleste rol in HDL [Mass ratio] 4.53 {ratio} [facility] Serum or plasma cholesterol in HDL measurement (mass/volume)Ordered By: Alfredo Phipps on 02-11-2025 Cholesterol in HDL [Mass/Vol] 31 mg/dL Low >40 [facility] Comment on above: National Cholesterol Education Program (NCEP) guidelines:<40 mg/dL: Low HDL-cholesterol (major risk factor for CHD)>= 60 mg/dL: High HDL-cholesterol (negative risk factor for CHD)HDL-cholesterol is affected by a number of factors, e.g. smoking, exercise, hormones, sex and age. Serum or plasma cholesterol measurement (mass/volume)Ordered By: Alfredo Phipps on 02-11-2025 Cholesterol [Mass/Vol] 141 mg/dL <201 [facility] Comment on above: Cholesterol level, D esirable <200 mg/dLBorderline high cholesterol 200-239 mg/dLHigh cholesterol >=240 mg/dLRecommendations of the NCEP Adult Treatment Panel for the following risk-cutoff thresholds for the [place] population. Triglycerides measurementOrd ered By: Alfredo Phipps on 02-11-2025 Triglyceride [Mass/Vol] 215 mg/dL High <199 [facility] Comment on above: The drugs N-Acetylcy steine and Metamizole may falsely depress this assay. Normal range: <150 mg/dLBorderline High: 150-199 mg/dLHigh: 200-499 mg/dLVery High: >500 mg/dL Hemoglobin A1con 02-06-2025 HbA1c (Bld) [Mass fraction] 5.8 % Normal <=5.6 [facility] Comment on above: Order Comment: 111.2 UNKNOWN [id number] 0000 Performed By: #### L [id number] #### [facility] [address] [place], [place], [address] Hemoglobin A1c percentageOrd ered By: Alfredo Phipps on 02-06-2025 HbA1c (Bld) [Mass fraction] 5.8 % >5.7 [facility] Lithiumon 01-30-2025 LI 0.71 mmol/L Normal 0.60-1.20 [facility] Comment on above: Order Comment: 111-2 Performed By: #### L [id number], L501.2300, [id number], L100.0100 #### [facility] [address] [place], [place], [address] [place] levelOrdered By: Benoit Ferraro on 01-30-2025 [place] Level 0.71 mmol/L 0.60-1.20 [facility] Serum or plasma uric acid me asurement (mass/volume)Ordered By: Adam Ferraro on 01-25-2025 Urate [Mass/Vol] 6.2 mg/dL 3.5-7.2 [facility] Comment on above: The drugs N-Acetylcy steine and Metamizole may falsely depress this assay. Uric Acidon 01-25-2025 URIC 6.2 mg/dL Normal 3.5-7.2 [facility] Comment on above: Order Comment: 111-2 Result Comment: The drugs N-Acetylcysteine and Metamizole may falsely depress this assay. Performed By: #### L [id number], L501.2300, [id number], L100.0100 #### [facility] [address] [place], [address] Microalb:Creat Ratio,Random URon 01-03-2025 Creatinine [Mass/Vol] 104.00 mg/dL Normal NO RAN GE EST. [facility] Comment on above: Performed By: #### L [id number] #### [facility] [address] [place], [address] MALB:CRE TNP Normal <30 mg/g CRE [facility] Comment on above: Performed By: #### L [id number] #### [facility] [address] [place], [address] MICROALBUMIN,UR < 5.0 Normal NO RANGE EST. [facility] Comment on above: Performed By: #### L [id number] #### [facility] [address] [place], [address] Random urine microalbumin me asurementOrdered By: Adam Ferraro on 01-03-2025 Urine Random Microalbumin < 5.0 mg/L NO RANGE EST. [facility] Urine albumin/creatinine rat io for detection of microalbuminuriaOrdered By: Adam Ferraro on 01-03-2025 Urine Microalbumin/Creatinine Ratio TNP [facility] Comment on above: Test not performed Urine creatinine measurement (mass/volume)Ordered By: Adam Ferraro on 01-03-2025 Creatinine (U) [Mass/Vol] 104.00 mg/dL NO RANGE EST. [facility] Absolute lymphocyte countOrd ered By: Adam Ferraro on 01-02-2025 Lymphocytes Auto (Unsp spec) [#/Vol] 2.41 10*3/uL 0.83-4.51 [facility] Absolute neutrophil countOrd ered By: Adam Ferraro on 01-02-2025 Neutrophils (Bld) [#/Vol] 5.6 10*3/uL 2.0-7.7 [facility] Albumin to globulin ratioOrd ered By: Adam Muñozmele on 01-02-2025 Albumin/Globulin [Mass ratio] 1.0 {ratio} 0.9-2.4 [facility] Automated lymphocyte count a s percentage of total leukocytesOrdered By: Adam Ferraro on 01-02-2025 Lymphocytes/100 WBC Auto (Unsp spec) 25.1 % [facility] Basophil percentageOrdered B y: Adam Ferraro on 01-02-2025 Basophils/100 WBC (Bld) 1.1 % High 0-1 [facility] Bilirubin, totalOrdered By: Adam Ferraro on 01-02-2025 Bilirubin [Mass/Vol] 0.30 mg/dL 0.20-1.00 [facility] Comment on above: For patients on eltr ombopag therapy, use of Dimension Drury TBIL is not recommended. Blood urea nitrogen (BUN)/cr eatinine ratioOrdered By: Adam Ferraro on 01-02-2025 Urea nitrogen/Creatinine [Mass ratio] 12.6 mg/mg 10- [facility] CBC W/Diff, Automatedon 12-15 Absolute Lymph 2.41 X10 3/uL Normal 0.83-4.51 [facility] Comment on above: Order Comment: 111.2 UNKNOWN [id number] 0000 Performed By: #### L [id number] #### [facility] [address] [place], [address] Absolute Neut 5.6 X10 3/uL Normal 2.0-7.7 [facility] Comment on above: Order Comment: 111.2 UNKNOWN [id number] 0000 Performed By: #### L [id number] #### [facility] [address] [place], [address] Basophils/100 WBC (Bld) 1.1 % High 0-1 [facility] Comment on above: Order Comment: 111.2 UNKNOWN [id number] 0000 Performed By: #### L [id number] #### [facility] [address] [place], [address] Eosinophils/100 WBC (Bld) 5.3 % High 0-5 [facility] Comment on above: Order Comment: 111.2 UNKNOWN [id number] 0000 Performed By: #### L [id number] #### [facility] [address] [place], [address] Erythrocyte distribution width (RBC) [Ratio] 12.9 % Normal 11.6-14.6 [facility] Comment on above: Order Comment: 111.2 UNKNOWN [id number] 0000 Performed By: #### L [id number] #### [facility] [address] [place], [address] Hematocrit (Bld) [Volume fraction] 40.5 % Normal 40-54 [facility] Comment on above: Order Comment: 111.2 UNKNOWN [id number] 0000 Performed By: #### L [id number] #### [facility] [address] [place], [address] Hemoglobin (Bld) [Mass/Vol] 13.4 g/dL Normal 13.0-16.5 [facility] Comment on above: Order Comment: 111.2 UNKNOWN [id number] 0000 Performed By: #### L [id number] #### [facility] [address] [place], [address] IG% 0.500 Normal 0.0-0.9 [facility] Comment on above: Order Comment: 111.2 UNKNOWN 20250701 0000 Result Comment: IG% - Immature Granulocytes (promyelocytes, myelocytes and metamyelocytes) > 1% indicates that a LEFT SHIFT is Present. Performed By: #### L [id number] #### [facility] [address] [place], [address] Lymphocytes/100 WBC (Bld) 25.1 % Normal 19-41 [facility] Comment on above: Order Comment: 111.2 UNKNOWN [id number] 0000 Performed By: #### L [id number] #### [facility] [address] [place], [address] MCH (RBC) [Entitic mass] 30.0 pg Normal 27.0-32.0 [facility] Comment on above: Order Comment: 111.2 UNKNOWN [id number] 0000 Performed By: #### L [id number] #### [facility] [address] [place], [address] MCHC (RBC) [Mass/Vol] 33.1 g/dL Normal 32-36 [facility] Comment on above: Order Comment: 111.2 UNKNOWN [id number] 0000 Performed By: #### L [id number] #### [facility] [address] [place], [address] MCV (RBC) [Entitic vol] 90.8 fL Normal 80-94 [facility] Comment on above: Order Comment: 111.2 UNKNOWN [id number] 0000 Performed By: #### L [id number] #### [facility] [address] [place], [address] Monocytes/100 WBC (Bld) 9.4 % Normal 0-10 [facility] Comment on above: Order Comment: 111.2 UNKNOWN [id number] 0000 Performed By: #### L [id number] #### [facility] [address] [place], [address] Neutrophils/100 WBC (Bld) 58.6 % Normal 47-70 [facility] Comment on above: Order Comment: 111.2 UNKNOWN [id number] 0000 Performed By: #### L [id number] #### [facility] [address] [place], [address] Nucleated RBC (Bld) [#/Vol] 0 10*3/uL Normal 0-5 [facility] Comment on above: Order Comment: 111.2 UNKNOWN [id number] 0000 Performed By: #### L [id number] #### [facility] [address] [place], [address] Platelet mean volume (Bld) [Entitic vol] 9.5 fL Normal 6.2-12.0 [facility] Comment on above: Order Comment: 111.2 UNKNOWN [id number] 0000 Performed By: #### L [id number] #### [facility] [address] [place], [address] Platelets (Bld) [#/Vol] 247 10*3/uL Normal 150-450 [facility] Comment on above: Order Comment: 111.2 UNKNOWN [id number] 0000 Performed By: #### L [id number] #### [facility] [address] [place], [address] RBC (Bld) [#/Vol] 4.46 10*6/uL Low 4.6-6.2 [facility] Comment on above: Order Comment: 111.2 UNKNOWN [id number] 0000 Performed By: #### L [id number] #### [facility] [address] [place], [address] RDW SD 41.9 fl Normal 35.1-43.9 [facility] Comment on above: Order Comment: 111.2 UNKNOWN [id number] 0000 Performed By: #### L [id number] #### [facility] [address] [place], [address] WBC (Bld) [#/Vol] 9.6 10*3/uL Normal 4.4-11.0 [facility] Comment on above: Order Comment: 111.2 UNKNOWN [id number] 0000 Performed By: #### L [id number] #### [facility] [address] [place], [address] Carbon dioxide measurementOr dered By: Adam Ferraro on 01-02-2025 CO2 [Moles/Vol] 25.0 mmol/L 21.0-32.0 [facility] Chloride measurementOrdered By: Adam Ferraro on 01-02-2025 Chloride [Moles/Vol] 109 mmol/L High 98-107 [facility] Comprehensive Metabolic Prof ilon 01-02-2025 Albumin [Mass/Vol] 3.1 g/dL Low 3.2-5.0 [facility] Comment on above: Order Comment: 111.2 UNKNOWN [id number] 0000 Performed By: #### L [id number] #### [facility] [address] [place], [address] Albumin/Globulin [Mass ratio] 1.0 {ratio} Normal 0.9-2.4 [facility] Comment on above: Order Comment: 111.2 UNKNOWN [id number] 0000 Performed By: #### L [id number] #### [facility] [address] [place], [address] ALK P 81 U/L Normal 45-117 [facility] Comment on above: Order Comment: 111.2 UNKNOWN [id number] 0000 Performed By: #### L [id number] #### [facility] [address] [place], [address] ALT [Catalytic activity/Vol] 17 U/L Normal 16-61 [facility] Comment on above: Order Comment: 111.2 UNKNOWN [id number] 0000 Performed By: #### L [id number] #### [facility] [address] [place], [address] AST [Catalytic activity/Vol] 12 U/L Low 15-37 [facility] Comment on above: Order Comment: 111.2 UNKNOWN [id number] 0000 Performed By: #### L [id number] #### [facility] [address] [place], [address] Bilirubin [Mass/Vol] 0.30 mg/dL Normal 0.20-1.00 [facility] Comment on above: Order Comment: 111.2 UNKNOWN 20250701 0000 Result Comment: For patients on eltrombopag therapy, use of Dimension Drury TBIL is not recommended. Performed By: #### L [id number] #### [facility] [address] [place], [address] BUN/CRE 12.6 RATIO Normal 10-20 [facility] Comment on above: Order Comment: 111.2 UNKNOWN [id number] 0000 Performed By: #### L [id number] #### [facility] [address] [place], [address] CA,Total 9.4 mg/dL Normal 8.5-10.1 [facility] Comment on above: Order Comment: 111.2 UNKNOWN [id number] 0000 Performed By: #### L [id number] #### [facility] [address] [place], [address] Chloride [Moles/Vol] 109 mmol/L High 98-107 [facility] Comment on above: Order Comment: 111.2 UNKNOWN [id number] 0000 Performed By: #### L [id number] #### [facility] [address] [place], [address] CO2 [Moles/Vol] 25.0 mmol/L Normal 21.0-32.0 [facility] Comment on above: Order Comment: 111.2 UNKNOWN [id number] 0000 Performed By: #### L [id number] #### [facility] [address] [place], [address] Creatinine [Mass/Vol] 2.14 mg/dL High 0.70-1.30 [facility] Comment on above: Order Comment: 111.2 UNKNOWN [id number] 0000 Result Comment: The validity of the calculated GFR GFRAA in patients over 70 years has not been determined. Clinical correlation is essential. Performed By: #### L [id number] #### [facility] [address] [place], [address] EST GFR - AA 41 mL/min Low >60 [facility] Comment on above: Order Comment: 111.2 UNKNOWN [id number] 0000 Result Comment: Afri can Maltese GFR Calc Performed By: #### L 294.3929 #### [facility] [address] [place], [address] GAP 7 Normal 5-15 [facility] Comment on above: Order Comment: 111.2 UNKNOWN [id number] 0000 Performed By: #### L [id number] #### [facility] [address] [place], [address] GFR/1.73 sq M.predicted among non-blacks MDRD (S/P/Bld) [Vol rate/Area] 34 mL/min/{1.73_m2} Low >60 [facility] Comment on above: Order Comment: 111.2 UNKNOWN 20250701 0000 Result Comment: Non- GFR Calc Performed By: #### L [id number] #### [facility] [address] [place], [address] Globulin (S) [Mass/Vol] 3.1 g/dL Normal 2.2-4.2 [facility] Comment on above: Order Comment: 111.2 UNKNOWN [id number] 0000 Performed By: #### L [id number] #### [facility] [address] [place], [address] Glucose [Mass/Vol] 115 mg/dL High 74-106 [facility] Comment on above: Order Comment: 111.2 UNKNOWN 20250701 0000 Result Comment: Fast ing Glucose result from 100 to 125 mg/dL suggests IMPAIRED HOMEOSTASIS per A.D.A. criteria. Performed By: #### L [id number] #### [facility] [address] [place], [address] Potassium [Moles/Vol] 4.1 mmol/L Normal 3.5-5.1 [facility] Comment on above: Order Comment: 111.2 UNKNOWN [id number] 0000 Performed By: #### L [id number] #### [facility] [address] [place], [address] Sodium [Moles/Vol] 141 mmol/L Normal 136-145 [facility] Comment on above: Order Comment: 111.2 UNKNOWN [id number] 0000 Performed By: #### L [id number] #### [facility] [address] [place], [place], [address] T PROT 6.2 g/dL Low 6.4-8.2 [facility] Comment on above: Order Comment: 111.2 UNKNOWN [id number] 0000 Performed By: #### L [id number] #### [facility] [address] [place], [address] Urea nitrogen [Mass/Vol] 27 mg/dL High 7-18 [facility] Comment on above: Order Comment: 111.2 UNKNOWN [id number] 0000 Performed By: #### L [id number] #### [facility] [address] [place], [place], [address] Eosinophil percentageOrdered By: Adam Ferraro on 01-02-2025 Eosinophils/100 WBC (Bld) 5.3 % High 0-5 [facility] Erythrocyte distribution wid th ratioOrdered By: Adam Ferraro on 01-02-2025 Erythrocyte distribution width (RBC) [Ratio] 12.9 % 11.6-14.6 [facility] Erythrocyte distribution wid th standard deviationOrdered By: Adam Ferraro on 01-02-2025 Erythrocyte distribution width (RBC) [Entitic vol] 41.9 fL 35.1-43.9 [facility] Erythrocyte distribution width (RBC) [Ratio] 41.9 fl 35.1-43.9 [facility] Estimated glomerular filtrat ion rate (GFR) AmericanOrdered By: Adam Ferraro on 01-02-2025 Estimated GFR (MDRD) Amer 41 mL/min Low >60 [facility] Comment on above: GFR Calc Glomerular filtration rate ( GFR) estimationOrdered By: Adam Ferraro on 01-02-2025 Estimated GFR (MDRD) Non-Af Amer 34 mL/min Low >60 [facility] Comment on above: Non- GFR Calc GFR/1.73 sq M.predicted among non-blacks MDRD (S/P/Bld) [Vol rate/Area] 34 mL/min/{1.73_m2} Low >60 [facility] Comment on above: Non- GFR Calc Glucose measurementOrdered B y: Adam Jasmine on 01-02-2025 Glucose [Mass/Vol] 115 mg/dL High 74-106 [facility] Comment on above: Fasting Glucose resu lt from 100 to 125 mg/dL suggests IMPAIRED HOMEOSTASIS per A.D.A. criteria. Hematocrit Auto (Bld) [Volum e fraction]Ordered By: Adam Ferraro on 01-02-2025 Hematocrit (Bld) [Volume fraction] 40.5 % 40-54 [facility] Hemoglobin measurementOrdere d By: Adam Ferraro on 01-02-2025 Hemoglobin (Bld) [Mass/Vol] 13.4 g/dL 13.0-16.5 [facility] Immature granulocytes/100 WB C Auto (Bld)Ordered By: Adam Ferraro on 01-02-2025 Immature granulocytes/100 WBC (Bld) 0.500 % 0.0-0.9 [facility] Comment on above: IG% - Immature Granu locytes (promyelocytes, myelocytes and metamyelocytes) > 1% indicates that a LEFT SHIFT is Present. Laboratory - Chemistry and C hemistry - challengeOrdered By: Adam Ferraro on 01-02-2025 AST [Catalytic activity/Vol] 12 U/L Low 15-37 [facility] Lithiumon 01-02-2025 LI 0.60 mmol/L Normal 0.60-1.20 [facility] Comment on above: Order Comment: 111.2 UNKNOWN [id number] 0000 Performed By: #### L [id number] #### [facility] [address] [place], [address] [place] levelOrdered By: Benoit Ferraro on 01-02-2025 [place] Level 0.60 mmol/L 0.60-1.20 [facility] Lymphocytes Auto (Unsp spec) [#/Vol]Ordered By: Adam Ferraro on 01-02-2025 Lymphocytes (Bld) [#/Vol] 2.41 10*3/uL 0.83-4.5 1 [facility] Lymphocytes/100 WBC Auto (Un sp spec)Ordered By: Adam Ferraro on 01-02-2025 Lymphocytes/100 WBC (Bld) 25.1 % 19-41 [facility] MCV (mean corpuscular volume ) determinationOrdered By: Adam Ferraro on 01-02-2025 MCV (RBC) [Entitic vol] 90.8 fL 80-94 [facility] Mean corpuscular hemoglobin (MCH) determinationOrdered By: Adam Ferraro on 01-02-2025 MCH (RBC) [Entitic mass] 30.0 pg 27.0-32.0 [facility] Mean corpuscular hemoglobin concentration (MCHC) determinationOrdered By: Adam Ferraro on 01-02-2025 MCHC (RBC) [Mass/Vol] 33.1 g/dL 32-36 [facility] Mean platelet volume determi nationOrdered By: Adam Ferraro on 01-02-2025 Platelet mean volume (Bld) [Entitic vol] 9.5 fL 6.2-12.0 [facility] Monocyte percentageOrdered B y: Adam Ferraro on 01-02-2025 Monocytes/100 WBC (Bld) 9.4 % 0-10 [facility] Neutrophil percentageOrdered By: Adam Ferraro on 01-02-2025 Neutrophils/100 WBC (Bld) 58.6 % 47-70 [facility] Nucleated red blood cell per centageOrdered By: Adam Ferraro on 01-02-2025 Nucleated RBC/100 WBC (Bld) [Ratio] 0 % 0-5 [facility] Phosphoruson 01-02-2025 Phosphate [Mass/Vol] 4.7 mg/dL Normal 2.5-4.9 [facility] Comment on above: Order Comment: 111.2 UNKNOWN [id number] 0000 Performed By: #### L [id number] #### [facility] [address] [place] [address], [address] Phosphorus measurementOrdere d By: Adam Ferraro on 01-02-2025 Phosphorus Level 4.7 mg/dL 2.5-4.9 [facility] Platelet countOrdered By: Sabino Ferraro on 01-02-2025 Platelets (Bld) [#/Vol] 247 10*3/uL 150-450 [facility] Potassium measurementOrdered By: Adam Ferraro on 01-02-2025 Potassium [Moles/Vol] 4.1 mmol/L 3.5-5.1 [facility] RBC Auto (Bld) [#/Vol]Ordere d By: Adam Ferraro on 01-02-2025 RBC (Bld) [#/Vol] 4.46 10*6/uL Low 4.6-6.2 [facility] Serum anion gap measurementO rdered By: Adam Ferraro on 01-02-2025 Anion gap [Moles/Vol] 7 mmol/L 5-15 [facility] Serum globulin measurementOr dered By: Adam Ferraro on 01-02-2025 Globulin (S) [Mass/Vol] 3.1 g/dL 2.2-4.2 [facility] Serum or plasma alanine sesay otransferase (ALT) measurementOrdered By: Adam Ferraro on 01-02-2025 ALT [Catalytic activity/Vol] 17 U/L 16-61 [facility] Serum or plasma albumin you urement (mass/volume)Ordered By: Adam Ferraro on 01-02-2025 Albumin [Mass/Vol] 3.1 g/dL Low 3.2-5.0 [facility] Serum or plasma alkaline hal sphatase measurementOrdered By: Adam Ferraro on 01-02-2025 ALP [Catalytic activity/Vol] 81 U/L 45-117 [facility] Serum or plasma calcium you urement (mass/volume)Ordered By: Adam Ferraro on 01-02-2025 Calcium [Mass/Vol] 9.4 mg/dL 8.5-10.1 [facility] Serum or plasma creatinine m easurement (mass/volume)Ordered By: Adam Ferraro on 01-02-2025 Creatinine [Mass/Vol] 2.14 mg/dL High 0.70-1.30 [facility] Comment on above: The validity of the calculated GFR & GFRAA in patients over 70 years has not been determined. Clinical correlation is essential. Serum or plasma urea nitroge n measurement (mass/volume)Ordered By: Adam Ferraro on 01-02-2025 Urea nitrogen [Mass/Vol] 27 mg/dL High 7-18 [facility] Sodium levelOrdered By: Spike Ferraro on 01-02-2025 Sodium [Moles/Vol] 141 mmol/L 136-145 [facility] Total proteinOrdered By: Benoit loni Jasmine on 01-02-2025 Protein [Mass/Vol] 6.2 g/dL Low 6.4-8.2 [facility] White blood cell (WBC) count Ordered By: Adam Ferraro on 01-02-2025 WBC (Bld) [#/Vol] 9.6 10*3/uL 4.4-11.0 [facility] Albumin to globulin ratioOrd ered By: Adam Ferraro on 12-28-2024 Albumin/Globulin [Mass ratio] 0.9 {ratio} 0.9-2.4 [facility] Bilirubin, totalOrdered By: Adam Ferraro on 12-28-2024 Bilirubin [Mass/Vol] 0.30 mg/dL 0.20-1.00 [facility] Comment on above: For patients on eltr ombopag therapy, use of Dimension Drury TBIL is not recommended. Blood urea nitrogen (BUN)/cr eatinine ratioOrdered By: Adam Ferraro on 12-28-2024 Urea nitrogen/Creatinine [Mass ratio] 10.0 mg/mg 10-20 [facility] CBC-Complete Blood Cnt No Di ffon 12-28-2024 Erythrocyte distribution width (RBC) [Ratio] 13.1 % Normal 11.6-14.6 [facility] Comment on above: Order Comment: 111.2 Performed By: #### L 100.0500, [id number], L501.1400 #### [facility] [address] [place], [address] Hematocrit (Bld) [Volume fraction] 40.4 % Normal 40-54 [facility] Comment on above: Order Comment: 111.2 Performed By: #### L 100.0500, [id number], [id number] #### [facility] [address] [place], [address] Hemoglobin (Bld) [Mass/Vol] 13.2 g/dL Normal 13.0-16.5 [facility] Comment on above: Order Comment: 111.2 Performed By: #### L 100.0500, [id number], [id number] #### [facility] [address] [place], [address] MCH (RBC) [Entitic mass] 29.7 pg Normal 27.0-32.0 [facility] Comment on above: Order Comment: 111.2 Performed By: #### L 100.0500, [id number], [id number] #### [facility] [address] [place], [address] MCHC (RBC) [Mass/Vol] 32.7 g/dL Normal 32-36 [facility] Comment on above: Order Comment: 111.2 Performed By: #### L 100.0500, [id number], [id number] #### [facility] [address] [place], [address] MCV (RBC) [Entitic vol] 91.0 fL Normal 80-94 [facility] Comment on above: Order Comment: 111.2 Performed By: #### L 100.0500, [id number], [id number] #### [facility] [address] [place], [address] Platelet mean volume (Bld) [Entitic vol] 9.3 fL Normal 6.2-12.0 [facility] Comment on above: Order Comment: 111.2 Performed By: #### L 100.0500, [id number], [id number] #### [facility] [address] [place], [address] Platelets (Bld) [#/Vol] 248 10*3/uL Normal 150-450 [facility] Comment on above: Order Comment: 111.2 Performed By: #### L 100.0500, [id number], [id number] #### [facility] [address] [place], [address] RBC (Bld) [#/Vol] 4.44 10*6/uL Low 4.6-6.2 [facility] Comment on above: Order Comment: 111.2 Performed By: #### L 100.0500, [id number], [id number] #### [facility] [address] [place], [address] RDW SD 42.4 fl Normal 35.1-43.9 [facility] Comment on above: Order Comment: 111.2 Performed By: #### L 100.0500, [id number], [id number] #### [facility] [address] [place], [address] WBC (Bld) [#/Vol] 10.5 10*3/uL Normal 4.4-11.0 [facility] Comment on above: Order Comment: 111.2 Performed By: #### L 100.0500, [id number], [id number] #### [facility] [address] [place], [address] Carbon dioxide measurementOr dered By: Adam Ferraro on 12-28-2024 CO2 [Moles/Vol] 25.0 mmol/L 21.0-32.0 [facility] Chloride measurementOrdered By: Adam Ferraro on 12-28-2024 Chloride [Moles/Vol] 110 mmol/L High 98-107 [facility] Comprehensive Metabolic Prof ilon 12-28-2024 Albumin [Mass/Vol] 3.0 g/dL Low 3.2-5.0 [facility] Comment on above: Order Comment: 111.2 Performed By: #### L 100.0500, [id number], [id number] #### [facility] [address] [place], [address] Albumin/Globulin [Mass ratio] 0.9 {ratio} Normal 0.9-2.4 [facility] Comment on above: Order Comment: 111.2 Performed By: #### L 100.0500, [id number], [id number] #### [facility] [address] [place], [address] ALK P 81 U/L Normal 45-117 [facility] Comment on above: Order Comment: 111.2 Performed By: #### L 100.0500, [id number], [id number] #### [facility] [address] [place], [address] ALT [Catalytic activity/Vol] 20 U/L Normal 16-61 [facility] Comment on above: Order Comment: 111.2 Performed By: #### L 100.0500, [id number], [id number] #### [facility] [address] [place], [address] AST [Catalytic activity/Vol] 11 U/L Low 15-37 [facility] Comment on above: Order Comment: 111.2 Performed By: #### L 100.0500, [id number], [id number] #### [facility] [address] [place], [address] Bilirubin [Mass/Vol] 0.30 mg/dL Normal 0.20-1.00 [facility] Comment on above: Order Comment: 111.2 Result Comment: For patients on eltrombopag therapy, use of Dimension Drury TBIL is not recommended. Performed By: #### L 100.0500, [id number], [id number] #### [facility] [address] [place], [address] BUN/CRE 10.0 RATIO Normal 10-20 [facility] Comment on above: Order Comment: 111.2 Performed By: #### L 100.0500, [id number], [id number] #### [facility] [address] [place], [address] CA,Total 9.3 mg/dL Normal 8.5-10.1 [facility] Comment on above: Order Comment: 111.2 Performed By: #### L 100.0500, [id number], [id number] #### [facility] [address] [place], [address] Chloride [Moles/Vol] 110 mmol/L High 98-107 [facility] Comment on above: Order Comment: 111.2 Performed By: #### L 100.0500, [id number], [id number] #### [facility] [address] [place], [address] CO2 [Moles/Vol] 25.0 mmol/L Normal 21.0-32.0 [facility] Comment on above: Order Comment: 111.2 Performed By: #### L 100.0500, [id number], [id number] #### [facility] [address] [place], [address] Creatinine [Mass/Vol] 2.09 mg/dL High 0.70-1.30 [facility] Comment on above: Order Comment: 111.2 Result Comment: The validity of the calculated GFR GFRAA in patients over 70 years has not been determined. Clinical correlation is essential. Performed By: #### L 100.0500, [id number], [id number] #### [facility] [address] [place], [address] EST GFR - AA 42 mL/min Low >60 [facility] Comment on above: Order Comment: 111.2 Result Comment: Afri can Maltese GFR Calc Performed By: #### L 100.0500, [id number], [id number] #### [facility] [address] [place], [address] GAP 6 Normal 5-15 [facility] Comment on above: Order Comment: 111.2 Performed By: #### L 100.0500, [id number], [id number] #### [facility] [address] [place], [address] GFR/1.73 sq M.predicted among non-blacks MDRD (S/P/Bld) [Vol rate/Area] 34 mL/min/{1.73_m2} Low >60 [facility] Comment on above: Order Comment: 111.2 Result Comment: Non- GFR Calc Performed By: #### L 100.0500, [id number], [id number] #### [facility] [address] [place], [address] Globulin (S) [Mass/Vol] 3.4 g/dL Normal 2.2-4.2 [facility] Comment on above: Order Comment: 111.2 Performed By: #### L 100.0500, [id number], [id number] #### [facility] [address] [place], [address] Glucose [Mass/Vol] 119 mg/dL High 74-106 [facility] Comment on above: Order Comment: 111.2 Result Comment: Fast ing Glucose result from 100 to 125 mg/dL suggests IMPAIRED HOMEOSTASIS per A.D.A. criteria. Performed By: #### L 100.0500, [id number], L501.1400 #### [facility] [address] [place], [address] Potassium [Moles/Vol] 4.3 mmol/L Normal 3.5-5.1 [facility] Comment on above: Order Comment: 111.2 Performed By: #### L 100.0500, [id number], [id number] #### [facility] [address] [place], [address] Sodium [Moles/Vol] 141 mmol/L Normal 136-145 [facility] Comment on above: Order Comment: 111.2 Performed By: #### L 100.0500, [id number], [id number] #### [facility] [address] [place], [address] T PROT 6.4 g/dL Normal 6.4-8.2 [facility] Comment on above: Order Comment: 111.2 Performed By: #### L 100.0500, [id number], [id number] #### [facility] [address] [place], [place], [address] Urea nitrogen [Mass/Vol] 21 mg/dL High 7-18 [facility] Comment on above: Order Comment: 111.2 Performed By: #### L 100.0500, [id number], [id number] #### [facility] [address] [place], [place], [address] Erythrocyte distribution wid th ratioOrdered By: Adam Ferraro on 12-28-2024 Erythrocyte distribution width (RBC) [Ratio] 13.1 % 11.6-14.6 [facility] Erythrocyte distribution wid th standard deviationOrdered By: Adam Ferraro on 12-28-2024 Erythrocyte distribution width (RBC) [Entitic vol] 42.4 fL 35.1-43.9 [facility] Erythrocyte distribution width (RBC) [Ratio] 42.4 fl 35.1-43.9 [facility] Estimated glomerular filtrat ion rate (GFR) AmericanOrdered By: Adam Ferraro on 12-28-2024 Estimated GFR (MDRD) Amer 42 mL/min Low >60 [facility] Comment on above: GFR Calc Glomerular filtration rate ( GFR) estimationOrdered By: Adam Ferraro on 12-28-2024 Estimated GFR (MDRD) Non-Af Amer 34 mL/min Low >60 [facility] Comment on above: Non- GFR Calc GFR/1.73 sq M.predicted among non-blacks MDRD (S/P/Bld) [Vol rate/Area] 34 mL/min/{1.73_m2} Low >60 [facility] Comment on above: Non- GFR Calc Glucose measurementOrdered B y: Adam Ferraro on 12-28-2024 Glucose [Mass/Vol] 119 mg/dL High 74-106 [facility] Comment on above: Fasting Glucose resu lt from 100 to 125 mg/dL suggests IMPAIRED HOMEOSTASIS per A.D.A. criteria. Hematocrit Auto (Bld) [Volum e fraction]Ordered By: Adam Ferraro on 12-28-2024 Hematocrit (Bld) [Volume fraction] 40.4 % 40-54 [facility] Hemoglobin measurementOrdere d By: Adam Ferraro on 12-28-2024 Hemoglobin (Bld) [Mass/Vol] 13.2 g/dL 13.0-16.5 [facility] - Chemistry and C hemistry - challengeOrdered By: Adam Ferraro on 12-28-2024 AST [Catalytic activity/Vol] 11 U/L Low 15-37 [facility] MCV (mean corpuscular volume ) determinationOrdered By: Adam Ferraro on 12-28-2024 MCV (RBC) [Entitic vol] 91.0 fL 80-94 [facility] Mean corpuscular hemoglobin (MCH) determinationOrdered By: Adam Ferraro on 12-28-2024 MCH (RBC) [Entitic mass] 29.7 pg 27.0-32.0 [facility] Mean corpuscular hemoglobin concentration (MCHC) determinationOrdered By: Adam Ferraro on 12-28-2024 MCHC (RBC) [Mass/Vol] 32.7 g/dL 32-36 [facility] Mean platelet volume determi nationOrdered By: Adam Ferraro on 12-28-2024 Platelet mean volume (Bld) [Entitic vol] 9.3 fL 6.2-12.0 [facility] Platelet countOrdered By: Sabino Ferraro on 12-28-2024 Platelets (Bld) [#/Vol] 248 10*3/uL 150-450 [facility] Potassium measurementOrdered By: Adam Ferraro on 12-28-2024 Potassium [Moles/Vol] 4.3 mmol/L 3.5-5.1 [facility] RBC Auto (Bld) [#/Vol]Ordere d By: Adam Ferraro on 12-28-2024 RBC (Bld) [#/Vol] 4.44 10*6/uL Low 4.6-6.2 [facility] Serum anion gap measurementO rdered By: Adam Ferraro on 12-28-2024 Anion gap [Moles/Vol] 6 mmol/L 5-15 [facility] Serum globulin measurementOr dered By: Adam Ferraro on 12-28-2024 Globulin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 [Moles/Vol] 109 mmol/L 98-107 [facility] Eosinophils/100 WBC (Bld) 3.9 % 0-5 [facility] Glucose [Mass/Vol] 113 mg/dL 74-106 [facility] Comment on above: Fasting Glucose resu lt from 100 to 125 mg/dL suggests IMPAIRED HOMEOSTASIS per A.D.A. criteria. Hemoglobin (Bld) [Mass/Vol] 13.7 g/dL 13.0-16.5 [facility] Monocytes/100 WBC (Bld) 8.4 % 0-10 [facility] Neutrophils (Bld) [#/Vol] 6.3 10*3/uL 2.0-7.7 [facility] Neutrophils/100 WBC (Bld) 65.7 % 47-70 [facility] Potassium [Moles/Vol] 4.2 mmol/L 3.5-5.1 [facility] Sodium [Moles/Vol] 143 mmol/L 136-145 [facility] WBC (Bld) [#/Vol] 9.6 10*3/uL 4.4-11.0 [facility] Determination of erythrocyte mean corpuscular volume (MCV)Ordered By: Alfredo Phipps on 01-06-2024 MCV (RBC) [Entitic vol] 90.1 fL 80-94 [facility] Erythrocyte distribution wid th ratioOrdered By: lAfredo Phipps on 01-06-2024 Erythrocyte distribution width (RBC) [Ratio] 13.2 % 11.6-14.6 [facility] Erythrocyte distribution wid th standard deviationOrdered By: Alfredo Phipps on 01-06-2024 Erythrocyte distribution width (RBC) [Entitic vol] 43.2 fL 35.1-43.9 [facility] Hematocrit Auto (Bld) [Volum e fraction]Ordered By: Alfredo Phipps on 01-06-2024 Hematocrit (Bld) [Volume fraction] 41.7 % 40-54 [facility] Immature granulocytes/100 WB C Auto (Bld)Ordered By: Alfredo Phipps on 01-06-2024 Immature granulocytes/100 WBC (Bld) 0.300 % 0.0-0.9 [facility] Comment on above: IG% - Immature Granu locytes (promyelocytes, myelocytes and metamyelocytes) > 1% indicates that a LEFT SHIFT is Present. Laboratory - Chemistry and C hemistry - challengeOrdered By: Alfredo Phipps on 01-06-2024 CO2 [Moles/Vol] 24.0 mmol/L 21.0-32.0 [facility] Urea nitrogen/Creatinine [Mass ratio] 8.9 mg/mg 10-20 [facility] Laboratory - Hematology and Cell countsOrdered By: Alfredo Phipps on 01-06-2024 MCH (RBC) [Entitic mass] 29.6 pg 27.0-32.0 [facility] MCHC (RBC) [Mass/Vol] 32.9 g/dL 32-36 [facility] Nucleated RBC/100 WBC (Bld) [Ratio] 0 % 0-5 [facility] Platelet mean volume (Bld) [Entitic vol] 9.6 fL 6.2-12.0 [facility] Platelets (Bld) [#/Vol] 209 10*3/uL 150-450 [facility] No Panel InformationOrdered By: Alfredo Phipps on 01-06-2024 Estimated GFR (MDRD) Amer 44 mL/min >60 [facility] Comment on above: GFR Calc Estimated GFR (MDRD) Non-Af Amer 36 mL/min >60 [facility] Comment on above: Non- GFR Calc [place] Level 0.60 mmol/L 0.60-1.20 [facility] RBC Auto (Bld) [#/Vol]Ordere d By: Alfredo Phipps on 01-06-2024 RBC (Bld) [#/Vol] 4.63 10*6/uL 4.6-6.2 [facility] Serum or plasma calcium you urement (mass/volume)Ordered By: Alfredo Phipps on 01-06-2024 Calcium [Mass/Vol] 9.3 mg/dL 8.5-10.1 [facility] Serum or plasma creatinine m easurement (mass/volume)Ordered By: Alfredo Phipps on 01-06-2024 Creatinine [Mass/Vol] 2.02 mg/dL 0.70-1.30 [facility] Comment on above: The validity of the calculated GFR & GFRAA in patients over 70 years has not been determined. Clinical correlation is essential. Serum or plasma urea nitroge n measurement (mass/volume)Ordered By: Alfredo Phipps on 01-06-2024 Urea nitrogen [Mass/Vol] 18 mg/dL 7-18 [facility] Thin prep Papanicolaou smear with manual screeningOrdered By: Alfredo Phipps on 01-06-2024 Thin prep Papanicolaou smear with manual screening 3.3 g/dL 3.2-5.0 [facility] Protein (U) [Mass/Vol] 19.0 mg/dL 0.0-11.8 [facility] Urine creatinine measurement (mass/volume)Ordered By: Alfredo Phipps on 01-06-2024 Creatinine (U) [Mass/Vol] 122.00 mg/dL NO RANGE EST. [facility] Urine protein/creatinine mas s ratioOrdered By: Alfredo Phipps on 01-06-2024 Protein/Creatinine (U) [Mass ratio] 156 mg/g CRE 0-200 [facility] CBC W Auto Differential pane l (Bld)on 12-20-2023 Basophils (Bld) [#/Vol] 0.11 10*3/uL High <0.11 k/uL [facility] Basophils/100 WBC (Bld) 1.0 % [facility] Differential cell count method Nom (Bld) Auto [facility] Eosinophils (Bld) [#/Vol] 0.31 10*3/uL <0.46 k/ uL [facility] Eosinophils/100 WBC (Bld) 2.8 % [facility] Erythrocyte distribution width (RBC) [Ratio] 12.9 % 11.5 - 15.0 % [facility] Hematocrit (Bld) [Volume fraction] 46.0 % 39.0 - 51.0 % [facility] Hemoglobin (Bld) [Mass/Vol] 15.2 g/dL 13.0 - 17.0 g/dL [facility] Immature granulocytes (Bld) [#/Vol] 0.06 10*3/uL <0.10 k/uL [facility] Immature granulocytes/100 WBC (Bld) 0.5 % [facility] Lymphocytes (Bld) [#/Vol] 1.82 10*3/uL 1. 00 - 4.00 k/uL [facility] Lymphocytes/100 WBC (Bld) 16.5 % [facility] MCH (RBC) [Entitic mass] 28.9 pg 26. 0 - 34.0 pg [facility] MCHC (RBC) [Mass/Vol] 33.0 g/dL 30.5 - 36.0 g/dL [facility] MCV (RBC) [Entitic vol] 87.5 fL 80.0 - 100.0 fL [facility] Monocytes (Bld) [#/Vol] 0.88 10*3/uL High <0.87 k/uL [facility] Monocytes/100 WBC (Bld) 8.0 % [facility] Neutrophils (Bld) [#/Vol] 7.82 10*3/uL High 1. 45 - 7.50 k/uL [facility] Neutrophils/100 WBC (Bld) 71.2 % [facility] Nucleated RBC (Bld) [#/Vol] <0.01 k/uL [facility] Nucleated RBC/100 WBC (Bld) [Ratio] 0.0 /100 WBC [facility] Platelet mean volume (Bld) [Entitic vol] 9.4 fL 9.0 - 12.7 fL [facility] Platelets (Bld) [#/Vol] 247 10*3/uL 150 - 400 k/uL [facility] RBC (Bld) [#/Vol] 5.26 10*6/uL 4.20 - 6.0 0 m/uL [facility] WBC (Bld) [#/Vol] 11.00 10*3/uL 3.70 - 11.00 k/uL [facility] CYSTATIN Con 12-20-2023 Cystatin C [Mass/Vol] 1.87 mg/L High 0.61 - 0.95 mg/L [facility] Cystatin C eGFR 34 mL/min/1.73m Low >=60 mL/min/1.73 m [facility] Comprehensive metabolic 2000 panelon 12-20-2023 Albumin [Mass/Vol] 4.2 g/dL 3.9 - 4.9 g/dL [facility] ALP [Catalytic activity/Vol] 105 U/L 38 - 113 U/L [facility] ALT [Catalytic activity/Vol] 31 U/L 10 - 54 U/L [facility] Anion gap [Moles/Vol] 15 mmol/L 9 - 18 mmol/L [facility] AST [Catalytic activity/Vol] 19 U/L 14 - 40 U/L [facility] Bilirubin [Mass/Vol] 0.3 mg/dL 0.2 - 1 .3 mg/dL [facility] Calcium [Mass/Vol] 10.2 mg/dL 8.5 - 10. 2 mg/dL [facility] Chloride [Moles/Vol] 103 mmol/L 97 - 10 5 mmol/L [facility] CO2 [Moles/Vol] 24 mmol/L 22 - 30 mmol/L [facility] Creatinine [Mass/Vol] 2.22 mg/dL High 0.73 - 1.22 mg/dL [facility] Estimated Glomerular Filtration Rate 33 mL/min/1.73m Low >=60 mL/min/1.73 m [facility] Glucose [Mass/Vol] 114 mg/dL High 74 - 99 mg/dL [facility] Potassium [Moles/Vol] 4.2 mmol/L 3.7 - 5.1 mmol/L [facility] Protein [Mass/Vol] 7.0 g/dL 6.3 - 8.0 g/dL [facility] Sodium [Moles/Vol] 142 mmol/L 136 - 144 mmol/L [facility] Urea nitrogen [Mass/Vol] 19 mg/dL 9 - 24 mg/dL [facility] LIPID PANEL, NONFASTINGon Cholesterol [Mass/Vol] 139 mg/dL <200 mg/dL [facility] HDL Cholesterol, Nonfasting 32 mg/dL Low >39 mg/dL [facility] LDL Cholesterol, Nonfasting 51 mg/dL <100 mg/dL [facility] LDL/HDL Ratio, Nonfasting 1.59 mg/dL <2.54 mg/d L [facility] Non HDL Cholesterol, Nonfasting 107 mg/dL <130 mg/dL [facility] Total Chol/HDL Ratio, Nonfasting 4.34 mg/dL <5.10 mg/dL [facility] Triglycerides, Nonfasting 280 mg/dL High <150 mg/dL [facility] VLDL Cholesterol, Nonfasting 56 mg/dL High <30 mg/dL [facility] PHOSPHORUS INORGANICon 12-20 Phosphate [Mass/Vol] 2.1 mg/dL Low 2.7 - 4 .8 mg/dL [facility] PROTEIN CREATININE RATIOon 0 12-20-2023 Protein/Creatinine (U) [Mass ratio] 0.07 mg/mg <0.15 mg/mg [facility] PTH INTACT BLDon 12-20-2023 Parathyrin.intact [Mass/Vol] 121 pg/mL High 15 - 65 pg/mL [facility] Protein/Creatinine (U) [Mass ratio]on 12-20-2023 Creatinine (U) [Mass/Vol] 103.8 mg/dL 20 .0 - 300.0 mg/dL [facility] Protein (U) [Mass/Vol] 7 mg/dL 0 - 2 0 mg/dL [facility] URINALYSIS, REFLEX MICROSCOP ICon 12-20-2023 Bilirubin Ql (U) Negative Negative [facility] Clarity (Unsp spec) Clear Clear [facility] Color (U) Light Yellow Yellow [facility] Glucose Test strip (U) [Mass/Vol] Negative Trace, Negative [facility] Hemoglobin Ql (U) Negative Negative, Trace [facility] Ketones Ql (U) Negative Negative, Trace [facility] Leukocyte esterase Test strip Ql (U) Negative Negative, 25 Mary/uL [facility] Nitrite Ql (U) Negative Negative [facility] pH (U) 6.0 [pH] 5.0 - 8.0 [facility] Protein (U) [Mass/Vol] Negative Trace , Negative [facility] Specific gravity (U) [Rel density] 1.010 1.005 - 1.030 [facility] Urobilinogen Ql (U) Normal Normal [facility] Absolute lymphocyte countOrd ered By: Alfreod Phipps on 12-09-2023 Lymphocytes Auto (Unsp spec) [#/Vol] 2.24 10*3/uL 0.83-4.51 [facility] Automated lymphocyte count a s percentage of total leukocytesOrdered By: Alfredo Phipps on 12-09-2023 Lymphocytes/100 WBC Auto (Unsp spec) 23.2 % 19-41 [facility] Basophil percentageOrdered B y: Alfredo Phipps on 12-09-2023 Basophil percentage 3.8 mg/dL 2.5-4.9 [facility] Basophils/100 WBC (Bld) 1.0 % 0-1 [facility] Chloride [Moles/Vol] 110 mmol/L 98-107 [facility] Eosinophils/100 WBC (Bld) 3.9 % 0-5 [facility] Glucose [Mass/Vol] 129 mg/dL 74-106 [facility] Comment on above: Fasting Glucose resu lt greater than or equal to 126 mg/dL suggests DIABETES MELLITUS per A.D.A. criteria. Hemoglobin (Bld) [Mass/Vol] 13.9 g/dL 13.0-16.5 [facility] Monocytes/100 WBC (Bld) 9.3 % 0-10 [facility] Neutrophils (Bld) [#/Vol] 6.0 10*3/uL 2.0-7.7 [facility] Neutrophils/100 WBC (Bld) 62.2 % 47-70 [facility] Potassium [Moles/Vol] 3.5 mmol/L 3.5-5.1 [facility] Sodium [Moles/Vol] 138 mmol/L 136-145 [facility] WBC (Bld) [#/Vol] 9.7 10*3/uL 4.4-11.0 [facility] Determination of erythrocyte mean corpuscular volume (MCV)Ordered By: Alfredo Phipps on 12-09-2023 MCV (RBC) [Entitic vol] 90.2 fL 80-94 [facility] Erythrocyte distribution wid th ratioOrdered By: Alfredo Phipps on 12-09-2023 Erythrocyte distribution width (RBC) [Ratio] 13.1 % 11.6-14.6 [facility] Erythrocyte distribution wid th standard deviationOrdered By: Alfredo Phipps on 12-09-2023 Erythrocyte distribution width (RBC) [Entitic vol] 43.2 fL 35.1-43.9 [facility] Hematocrit Auto (Bld) [Volum e fraction]Ordered By: Alfredo Phipps on 12-09-2023 Hematocrit (Bld) [Volume fraction] 43.2 % 40-54 [facility] Immature granulocytes/100 WB C Auto (Bld)Ordered By: Alfredo Phipps on 12-09-2023 Immature granulocytes/100 WBC (Bld) 0.400 % 0.0-0.9 [facility] Comment on above: IG% - Immature Granu locytes (promyelocytes, myelocytes and metamyelocytes) > 1% indicates that a LEFT SHIFT is Present. Laboratory - Chemistry and C hemistry - challengeOrdered By: Alfredo Phipps on 12-09-2023 CO2 [Moles/Vol] 21.0 mmol/L 21.0-32.0 [facility] Urea nitrogen/Creatinine [Mass ratio] 7.4 mg/mg 10-20 [facility] Laboratory - Hematology and Cell countsOrdered By: Alfredo Phipps on 12-09-2023 MCH (RBC) [Entitic mass] 29.0 pg 27.0-32.0 [facility] MCHC (RBC) [Mass/Vol] 32.2 g/dL 32-36 [facility] Nucleated RBC/100 WBC (Bld) [Ratio] 0 % 0-5 [facility] Platelets (Bld) [#/Vol] 235 10*3/uL 150-450 [facility] No Panel InformationOrdered By: Alfredo Phipps on 12-09-2023 Estimated GFR (MDRD) Amer 44 mL/min >60 [facility] Comment on above: GFR Calc Estimated GFR (MDRD) Non-Af Amer 36 mL/min >60 [facility] Comment on above: Non- GFR Calc [place] Level 0.40 mmol/L 0.60-1.20 [facility] Platelet mean volume Naresh-Ec ker (Bld) [Entitic vol]Ordered By: Alfredo Phipps on 12-09-2023 Platelet mean volume (Bld) [Entitic vol] 9.5 fL 6.2-12.0 [facility] RBC Auto (Bld) [#/Vol]Ordere d By: Alfredo Phipps on 12-09-2023 RBC (Bld) [#/Vol] 4.79 10*6/uL 4.6-6.2 [facility] Serum or plasma calcium you urement (mass/volume)Ordered By: Alfredo Phipps on 12-09-2023 Calcium [Mass/Vol] 9.3 mg/dL 8.5-10.1 [facility] Serum or plasma creatinine m easurement (mass/volume)Ordered By: Alfredo Phipps on 12-09-2023 Creatinine [Mass/Vol] 2.02 mg/dL 0.70-1.30 [facility] Comment on above: The validity of the calculated GFR & GFRAA in patients over 70 years has not been determined. Clinical correlation is essential. Serum or plasma urea nitroge n measurement (mass/volume)Ordered By: Alfredo Phipps on 12-09-2023 Urea nitrogen [Mass/Vol] 15 mg/dL 7-18 [facility] Thin prep Papanicolaou smear with manual screeningOrdered By: Alfredo Phipps on 12-09-2023 Thin prep Papanicolaou smear with manual screening 3.2 g/dL 3.2-5.0 [facility] Urine creatinine measurement (mass/volume)Ordered By: Adam Ferraro on 11-16-2023 Creatinine (U) [Mass/Vol] 178.00 mg/dL NO RANGE EST. [facility] Urine protein measurement (m ass/volume)Ordered By: Adam Ferraro on 11-16-2023 Protein (U) [Mass/Vol] 28.7 mg/dL 0.0-11.8 [facility] Urine protein/creatinine mas s ratioOrdered By: Adam Ferraro on 11-16-2023 Protein/Creatinine (U) [Mass ratio] 161 mg/g CRE 0-200 [facility] Absolute lymphocyte countOrd ered By: Adam Ferraro on 11-11-2023 Lymphocytes Auto (Unsp spec) [#/Vol] 3.10 10*3/uL 0.83-4.51 [facility] Basophil percentageOrdered B y: Adam Ferraro on 11-11-2023 Basophil percentage 3.6 mg/dL 2.5-4.9 [facility] Basophils/100 WBC (Bld) 0.8 % 0-1 [facility] Chloride [Moles/Vol] 108 mmol/L 98-107 [facility] Eosinophils/100 WBC (Bld) 3.4 % 0-5 [facility] Glucose [Mass/Vol] 120 mg/dL 74-106 [facility] Comment on above: Fasting Glucose resu lt from 100 to 125 mg/dL suggests IMPAIRED HOMEOSTASIS per A.D.A. criteria. Neutrophils (Bld) [#/Vol] 7.1 10*3/uL 2.0-7.7 [facility] Neutrophils/100 WBC (Bld) 61.0 % 47-70 [facility] Potassium [Moles/Vol] 3.6 mmol/L 3.5-5.1 [facility] Sodium [Moles/Vol] 140 mmol/L 136-145 [facility] WBC (Bld) [#/Vol] 11.6 10*3/uL 4.4-11.0 [facility] Blood erythrocytes count (nu mber/volume)Ordered By: Adam Ferraro on 11-11-2023 RBC (Bld) [#/Vol] 4.98 10*6/uL 4.6-6.2 [facility] Blood hemoglobin measurement (mass/volume)Ordered By: Adam Ferraro on 11-11-2023 Hemoglobin (Bld) [Mass/Vol] 14.4 g/dL 13.0-16.5 [facility] Blood lymphocytes/100 leukoc ytesOrdered By: Adam Ferraro on 11-11-2023 Lymphocytes/100 WBC (Bld) 26.7 % 19-41 [facility] Blood monocytes/100 leukocyt esOrdered By: Adam Ferraro on 11-11-2023 Monocytes/100 WBC (Bld) 7.3 % 0-10 [facility] Blood platelet mean volumeOr dered By: Adam Ferraro on 11-11-2023 Platelet mean volume (Bld) [Entitic vol] 9.4 fL 6.2-12.0 [facility] Determination of erythrocyte mean corpuscular volume (MCV)Ordered By: Adam Ferraro on 11-11-2023 MCV (RBC) [Entitic vol] 89.8 fL 80-94 [facility] Hematocrit Auto (Bld) [Volum e fraction]Ordered By: Adam Ferraro on 11-11-2023 Hematocrit (Bld) [Volume fraction] 44.7 % 40-54 [facility] Laboratory - Chemistry and C hemistry - challengeOrdered By: Adam Ferraro on 11-11-2023 CO2 [Moles/Vol] 24.0 mmol/L 21.0-32.0 [facility] Urea nitrogen/Creatinine [Mass ratio] 7.8 mg/mg 10-20 [facility] Laboratory - Hematology and Cell countsOrdered By: Adam Ferraro on 11-11-2023 Erythrocyte distribution width (RBC) [Entitic vol] 42.7 fL 35.1-43.9 [facility] Erythrocyte distribution width (RBC) [Ratio] 13.1 % 11.6-14.6 [facility] Immature granulocytes/100 WBC (Bld) 0.800 % 0.0-0.9 [facility] Comment on above: IG% - Immature Granu locytes (promyelocytes, myelocytes and metamyelocytes) > 1% indicates that a LEFT SHIFT is Present. MCH (RBC) [Entitic mass] 28.9 pg 27.0-32.0 [facility] Nucleated RBC/100 WBC (Bld) [Ratio] 0 % 0-5 [facility] MCHC Auto (RBC) [Mass/Vol]Or dered By: Adam Ferraro on 11-11-2023 MCHC (RBC) [Mass/Vol] 32.2 g/dL 32-36 [facility] No Panel InformationOrdered By: Adam Ferraro on 11-11-2023 Estimated GFR (MDRD) Amer 37 mL/min >60 [facility] Comment on above: GFR Calc Estimated GFR (MDRD) Non-Af Amer 31 mL/min >60 [facility] Comment on above: Non- GFR Calc [place] Level 0.60 mmol/L 0.60-1.20 [facility] Platelets bldOrdered By: Benoit Ferraro on 11-11-2023 Platelets (Bld) [#/Vol] 252 10*3/uL 150-450 [facility] Serum or plasma albumin you urement (mass/volume)Ordered By: Adam Ferraro on 11-11-2023 Albumin [Mass/Vol] 3.1 g/dL 3.2-5.0 [facility] Serum or plasma calcium you urement (mass/volume)Ordered By: Adam Ferraro on 11-11-2023 Calcium [Mass/Vol] 8.9 mg/dL 8.5-10.1 [facility] Serum or plasma creatinine m easurement (mass/volume)Ordered By: Adam Ferraro on 11-11-2023 Creatinine [Mass/Vol] 2.31 mg/dL 0.70-1.30 [facility] Comment on above: The validity of the calculated GFR & GFRAA in patients over 70 years has not been determined. Clinical correlation is essential. Serum or plasma urea nitroge n measurement (mass/volume)Ordered By: Adam Ferraro on 11-11-2023 Urea nitrogen [Mass/Vol] 18 mg/dL 7-18 [facility] Serum or plasma uric acid me asurement (mass/volume)Ordered By: Adam Ferraro on 10-27-2023 Urate [Mass/Vol] 8.1 mg/dL 3.5-7.2 [facility] Comment on above: The drugs N-Acetylcy steine and Metamizole may falsely depress this assay. Absolute lymphocyte countOrd ered By: Alfredo Phipps on 10-14-2023 Lymphocytes Auto (Unsp spec) [#/Vol] 1.52 10*3/uL 0.83-4.51 [facility] Basophil percentageOrdered B y: Alfredo Phipps on 10-14-2023 Basophil percentage 3.2 mg/dL 2.5-4.9 [facility] Basophils/100 WBC (Bld) 1.2 % 0-1 [facility] Chloride [Moles/Vol] 110 mmol/L 98-107 [facility] Eosinophils/100 WBC (Bld) 5.0 % 0-5 [facility] Glucose [Mass/Vol] 151 mg/dL 74-106 [facility] Comment on above: Fasting Glucose resu lt greater than or equal to 126 mg/dL suggests DIABETES MELLITUS per A.D.A. criteria. Neutrophils (Bld) [#/Vol] 6.6 10*3/uL 2.0-7.7 [facility] Neutrophils/100 WBC (Bld) 68.8 % 47-70 [facility] Potassium [Moles/Vol] 3.8 mmol/L 3.5-5.1 [facility] Sodium [Moles/Vol] 141 mmol/L 136-145 [facility] WBC (Bld) [#/Vol] 9.5 10*3/uL 4.4-11.0 [facility] Blood erythrocytes count (nu mber/volume)Ordered By: Alfredo Phipps on 10-14-2023 RBC (Bld) [#/Vol] 4.51 10*6/uL 4.6-6.2 [facility] Blood hemoglobin measurement (mass/volume)Ordered By: Alfredo Phipps on 10-14-2023 Hemoglobin (Bld) [Mass/Vol] 13.0 g/dL 13.0-16.5 [facility] Blood lymphocytes/100 leukoc ytesOrdered By: Alfredo Phipps on 10-14-2023 Lymphocytes/100 WBC (Bld) 15.9 % 19-41 [facility] Blood monocytes/100 leukocyt esOrdered By: Alfredo Phipps on 10-14-2023 Monocytes/100 WBC (Bld) 8.3 % 0-10 [facility] Blood platelet mean volumeOr dered By: Alfredo Phipps on 10-14-2023 Platelet mean volume (Bld) [Entitic vol] 9.7 fL 6.2-12.0 [facility] Determination of erythrocyte mean corpuscular volume (MCV)Ordered By: Alfredo Phipps on 10-14-2023 MCV (RBC) [Entitic vol] 90.2 fL 80-94 [facility] Hematocrit Auto (Bld) [Volum e fraction]Ordered By: Alfredo Phipps on 10-14-2023 Hematocrit (Bld) [Volume fraction] 40.7 % 40-54 [facility] Laboratory - Chemistry and C hemistry - challengeOrdered By: Alfredo Phipps on 10-14-2023 CO2 [Moles/Vol] 26.0 mmol/L 21.0-32.0 [facility] Urea nitrogen/Creatinine [Mass ratio] 7.5 mg/mg 10-20 [facility] Laboratory - Hematology and Cell countsOrdered By: Alfredo Phipps on 10-14-2023 Erythrocyte distribution width (RBC) [Entitic vol] 43.6 fL 35.1-43.9 [facility] Erythrocyte distribution width (RBC) [Ratio] 13.2 % 11.6-14.6 [facility] Immature granulocytes/100 WBC (Bld) 0.800 % 0.0-0.9 [facility] Comment on above: IG% - Immature Granu locytes (promyelocytes, myelocytes and metamyelocytes) > 1% indicates that a LEFT SHIFT is Present. MCH (RBC) [Entitic mass] 28.8 pg 27.0-32.0 [facility] Nucleated RBC/100 WBC (Bld) [Ratio] 0 % 0-5 [facility] MCHC Auto (RBC) [Mass/Vol]Or dered By: Alfredo Phipps on 10-14-2023 MCHC (RBC) [Mass/Vol] 31.9 g/dL 32-36 [facility] No Panel InformationOrdered By: Alfredo Phipps on 10-14-2023 Estimated GFR (MDRD) Amer 41 mL/min >60 [facility] Comment on above: GFR Calc Estimated GFR (MDRD) Non-Af Amer 34 mL/min >60 [facility] Comment on above: Non- GFR Calc [place] Level 0.50 mmol/L 0.60-1.20 [facility] Platelets bldOrdered By: Jennifer Phipps on 10-14-2023 Platelets (Bld) [#/Vol] 224 10*3/uL 150-450 [facility] Serum or plasma albumin you urement (mass/volume)Ordered By: Alfredo Phipps on 10-14-2023 Albumin [Mass/Vol] 2.9 g/dL 3.2-5.0 [facility] Serum or plasma calcium you urement (mass/volume)Ordered By: Alfredo Phipps on 10-14-2023 Calcium [Mass/Vol] 8.5 mg/dL 8.5-10.1 [facility] Serum or plasma creatinine m easurement (mass/volume)Ordered By: Alfredo Phipps on 10-14-2023 Creatinine [Mass/Vol] 2.12 mg/dL 0.70-1.30 [facility] Comment on above: The validity of the calculated GFR & GFRAA in patients over 70 years has not been determined. Clinical correlation is essential. Serum or plasma urea nitroge n measurement (mass/volume)Ordered By: Alfredo Phipps on 10-14-2023 Urea nitrogen [Mass/Vol] 16 mg/dL 7-18 [facility] Urine creatinine measurement (mass/volume)Ordered By: Alfredo Phipps on 10-14-2023 Creatinine (U) [Mass/Vol] 195.00 mg/dL NO RANGE EST. [facility] Urine protein measurement (m ass/volume)Ordered By: Alfredo Phipps on 10-14-2023 Protein (U) [Mass/Vol] 23.4 mg/dL 0.0-11.8 [facility] Urine protein/creatinine mas s ratioOrdered By: Alfredo Phipps on 10-14-2023 Protein/Creatinine (U) [Mass ratio] 120 mg/g CRE 0-200 [facility] Serum or plasma uric acid me asurement (mass/volume)Ordered By: Adam Ferraro on 09-27-2023 Urate [Mass/Vol] 7.3 mg/dL 3.5-7.2 [facility] Comment on above: The drugs N-Acetylcy steine and Metamizole may falsely depress this assay. Absolute lymphocyte countOrd ered By: Alfredo Phipps on 09-16-2023 Lymphocytes Auto (Unsp spec) [#/Vol] 1.78 10*3/uL 0.83-4.51 [facility] Basophil percentageOrdered B y: Alfredo Phipps on 09-16-2023 Basophil percentage 4.3 mg/dL 2.5-4.9 [facility] Basophils/100 WBC (Bld) 1.0 % 0-1 [facility] Chloride [Moles/Vol] 109 mmol/L 98-107 [facility] Eosinophils/100 WBC (Bld) 4.4 % 0-5 [facility] Glucose [Mass/Vol] 143 mg/dL 74-106 [facility] Comment on above: Fasting Glucose resu lt greater than or equal to 126 mg/dL suggests DIABETES MELLITUS per A.D.A. criteria. Neutrophils (Bld) [#/Vol] 6.3 10*3/uL 2.0-7.7 [facility] Neutrophils/100 WBC (Bld) 67.0 % 47-70 [facility] Potassium [Moles/Vol] 4.1 mmol/L 3.5-5.1 [facility] Sodium [Moles/Vol] 139 mmol/L 136-145 [facility] WBC (Bld) [#/Vol] 9.4 10*3/uL 4.4-11.0 [facility] Blood erythrocytes count (nu mber/volume)Ordered By: Alfredo Phipps on 09-16-2023 RBC (Bld) [#/Vol] 4.63 10*6/uL 4.6-6.2 [facility] Blood hemoglobin measurement (mass/volume)Ordered By: Alfredo Phipps on 09-16-2023 Hemoglobin (Bld) [Mass/Vol] 13.4 g/dL 13.0-16.5 [facility] Blood lymphocytes/100 leukoc ytesOrdered By: Alfredo Phipps on 09-16-2023 Lymphocytes/100 WBC (Bld) 19.0 % 19-41 [facility] Blood monocytes/100 leukocyt esOrdered By: Alfredo Phipps on 09-16-2023 Monocytes/100 WBC (Bld) 8.3 % 0-10 [facility] Blood platelet mean volumeOr dered By: Alfredo Phipps on 09-16-2023 Platelet mean volume (Bld) [Entitic vol] 9.6 fL 6.2-12.0 [facility] Determination of erythrocyte mean corpuscular volume (MCV)Ordered By: Alfredo Phipps on 09-16-2023 MCV (RBC) [Entitic vol] 90.5 fL 80-94 [facility] Hematocrit Auto (Bld) [Volum e fraction]Ordered By: Alfredo Phipps on 09-16-2023 Hematocrit (Bld) [Volume fraction] 41.9 % 40-54 [facility] Laboratory - Chemistry and C hemistry - challengeOrdered By: Alfredo Phipps on 09-16-2023 CO2 [Moles/Vol] 23.0 mmol/L 21.0-32.0 [facility] Urea nitrogen/Creatinine [Mass ratio] 11.6 mg/mg 10-20 [facility] Laboratory - Hematology and Cell countsOrdered By: Alfredo Phipps on 09-16-2023 Erythrocyte distribution width (RBC) [Entitic vol] 46.1 fL 35.1-43.9 [facility] Erythrocyte distribution width (RBC) [Ratio] 13.9 % 11.6-14.6 [facility] Immature granulocytes/100 WBC (Bld) 0.300 % 0.0-0.9 [facility] Comment on above: IG% - Immature Granu locytes (promyelocytes, myelocytes and metamyelocytes) > 1% indicates that a LEFT SHIFT is Present. MCH (RBC) [Entitic mass] 28.9 pg 27.0-32.0 [facility] Nucleated RBC/100 WBC (Bld) [Ratio] 0 % 0-5 [facility] Auto (RBC) [Mass/Vol]Or dered By: Alfredo Phipps on 09-16-2023 MCHC (RBC) [Mass/Vol] 32.0 g/dL 32-36 [facility] No Panel InformationOrdered By: Alfredo Phipps on 09-16-2023 Estimated GFR (MDRD) Amer 45 mL/min >60 [facility] Comment on above: GFR Calc Estimated GFR (MDRD) Non-Af Amer 37 mL/min >60 [facility] Comment on above: Non- GFR Calc [place] Level 0.60 mmol/L 0.60-1.20 [facility] Platelets bldOrdered By: Jennifer Phipps on 09-16-2023 Platelets (Bld) [#/Vol] 212 10*3/uL 150-450 [facility] Serum or plasma albumin you urement (mass/volume)Ordered By: Alfredo Phipps on 09-16-2023 Albumin [Mass/Vol] 2.9 g/dL 3.2-5.0 [facility] Serum or plasma calcium you urement (mass/volume)Ordered By: Alfredo Phipps on 09-16-2023 Calcium [Mass/Vol] 9.0 mg/dL 8.5-10.1 [facility] Serum or plasma creatinine m easurement (mass/volume)Ordered By: Alfredo Phipps on 09-16-2023 Creatinine [Mass/Vol] 1.98 mg/dL 0.70-1.30 [facility] Comment on above: The validity of the calculated GFR & GFRAA in patients over 70 years has not been determined. Clinical correlation is essential. Serum or plasma urea nitroge n measurement (mass/volume)Ordered By: Alfredo Phipps on 09-16-2023 Urea nitrogen [Mass/Vol] 23 mg/dL 7-18 [facility] Urine creatinine measurement (mass/volume)Ordered By: Alfredo Phipps on 09-16-2023 Creatinine (U) [Mass/Vol] 44.20 mg/dL NO RANGE EST. [facility] Urine protein measurement (m ass/volume)Ordered By: Alfredo Phipps on 09-16-2023 Protein (U) [Mass/Vol] mg/dL 0.0-11.8 [facility] Urine protein/creatinine mas s ratioOrdered By: Alfredo Phipps on 09-16-2023 Protein/Creatinine (U) [Mass ratio] 131 mg/g CRE 0-200 [facility] Urine creatinine measurement (mass/volume)Ordered By: Adam Ferraro on 08-22-2023 Creatinine (U) [Mass/Vol] 105.00 mg/dL NO RANGE EST. [facility] Urine protein measurement (m ass/volume)Ordered By: Adam Ferraro on 08-22-2023 Protein (U) [Mass/Vol] 19.3 mg/dL 0.0-11.8 [facility] Urine protein/creatinine mas s ratioOrdered By: Adam Ferraro on 08-22-2023 Protein/Creatinine (U) [Mass ratio] 184 mg/g CRE 0-200 [facility] Absolute lymphocyte countOrd ered By: Adam Ferraro on 08-19-2023 Lymphocytes Auto (Unsp spec) [#/Vol] 2.02 10*3/uL 0.83-4.51 [facility] Basophil percentageOrdered B y: Adam Ferraro on 08-19-2023 Basophil percentage 4.0 mg/dL 2.5-4.9 [facility] Basophils/100 WBC (Bld) 0.7 % 0-1 [facility] Chloride [Moles/Vol] 108 mmol/L 98-107 [facility] Eosinophils/100 WBC (Bld) 4.4 % 0-5 [facility] Glucose [Mass/Vol] 161 mg/dL 74-106 [facility] Comment on above: Fasting Glucose resu lt greater than or equal to 126 mg/dL suggests DIABETES MELLITUS per A.D.A. criteria. Neutrophils (Bld) [#/Vol] 7.4 10*3/uL 2.0-7.7 [facility] Neutrophils/100 WBC (Bld) 66.8 % 47-70 [facility] Potassium [Moles/Vol] 3.9 mmol/L 3.5-5.1 [facility] Sodium [Moles/Vol] 140 mmol/L 136-145 [facility] WBC (Bld) [#/Vol] 11.1 10*3/uL 4.4-11.0 [facility] Blood erythrocytes count (nu mber/volume)Ordered By: Adam Ferraro on 08-19-2023 RBC (Bld) [#/Vol] 4.67 10*6/uL 4.6-6.2 [facility] Blood hemoglobin measurement (mass/volume)Ordered By: Adam Ferraro on 08-19-2023 Hemoglobin (Bld) [Mass/Vol] 13.5 g/dL 13.0-16.5 [facility] Blood lymphocytes/100 leukoc ytesOrdered By: Adam Ferraro on 08-19-2023 Lymphocytes/100 WBC (Bld) 18.3 % 19-41 [facility] Blood monocytes/100 leukocyt esOrdered By: Adam Ferraro on 08-19-2023 Monocytes/100 WBC (Bld) 9.1 % 0-10 [facility] Blood platelet mean volumeOr dered By: Adam Ferraro on 08-19-2023 Platelet mean volume (Bld) [Entitic vol] 9.4 fL 6.2-12.0 [facility] Determination of erythrocyte mean corpuscular volume (MCV)Ordered By: Adam Ferraro on 08-19-2023 MCV (RBC) [Entitic vol] 90.1 fL 80-94 [facility] Hematocrit Auto (Bld) [Volum e fraction]Ordered By: Adam Ferraro on 08-19-2023 Hematocrit (Bld) [Volume fraction] 42.1 % 40-54 [facility] Laboratory - Chemistry and C hemistry - challengeOrdered By: Adam Ferraro on 08-19-2023 CO2 [Moles/Vol] 26.0 mmol/L 21.0-32.0 [facility] Urea nitrogen/Creatinine [Mass ratio] 10.9 mg/mg 10-20 [facility] Laboratory - Hematology and Cell countsOrdered By: Adam Ferraro on 08-19-2023 Erythrocyte distribution width (RBC) [Entitic vol] 45.8 fL 35.1-43.9 [facility] Erythrocyte distribution width (RBC) [Ratio] 13.8 % 11.6-14.6 [facility] Immature granulocytes/100 WBC (Bld) 0.700 % 0.0-0.9 [facility] Comment on above: IG% - Immature Granu locytes (promyelocytes, myelocytes and metamyelocytes) > 1% indicates that a LEFT SHIFT is Present. MCH (RBC) [Entitic mass] 28.9 pg 27.0-32.0 [facility] Nucleated RBC/100 WBC (Bld) [Ratio] 0 % 0-5 [facility] MCHC Auto (RBC) [Mass/Vol]Or dered By: Adam Ferraro on 08-19-2023 MCHC (RBC) [Mass/Vol] 32.1 g/dL 32-36 [facility] No Panel InformationOrdered By: Adam Ferraro on 08-19-2023 Estimated GFR (MDRD) Amer 44 mL/min >60 [facility] Comment on above: GFR Calc Estimated GFR (MDRD) Non-Af Amer 36 mL/min >60 [facility] Comment on above: Non- GFR Calc [place] Level 0.50 mmol/L 0.60-1.20 [facility] Platelets bldOrdered By: Benoit Ferraro on 08-19-2023 Platelets (Bld) [#/Vol] 218 10*3/uL 150-450 [facility] Serum or plasma albumin you urement (mass/volume)Ordered By: Adam Ferraro on 08-19-2023 Albumin [Mass/Vol] 2.9 g/dL 3.2-5.0 [facility] Serum or plasma calcium you urement (mass/volume)Ordered By: Adam Ferraro on 08-19-2023 Calcium [Mass/Vol] 9.0 mg/dL 8.5-10.1 [facility] Serum or plasma creatinine m easurement (mass/volume)Ordered By: Adam Ferraro on 08-19-2023 Creatinine [Mass/Vol] 2.01 mg/dL 0.70-1.30 [facility] Comment on above: The validity of the calculated GFR & GFRAA in patients over 70 years has not been determined. Clinical correlation is essential. Serum or plasma urea nitroge n measurement (mass/volume)Ordered By: Adam Ferraro on 08-19-2023 Urea nitrogen [Mass/Vol] 22 mg/dL 7-18 [facility] Whole blood hemoglobin A1c/t otal hemoglobin ratio (mass fraction)Ordered By: Adam Ferraro on 08-19-2023 HbA1c (Bld) [Mass fraction] 7.2 % 3.8-5.6 [facility] Comment on above: Normal < 5.7 % Predi abetic 5.7 - 6.4 % Diabetic >or= 6.5 % Please note range changes. Basophil percentageOrdered B y: Adam Ferraro on 07-28-2023 Cholesterol [Mass/Vol] 124 mg/dL <200 [facility] Comment on above: <200 mg/dL Desirable 200-240 mg/dL Borderline >240 mg/dL High Risk Triglyceride [Mass/Vol] 234 mg/dL <199 [facility] Comment on above: The drugs N-Acetylcy steine and Metamizole may falsely depress this assay.Serum Triglycerides Reference Interval Normal <150 mg/dL Borderline high 150 - 199 mg/dL High 200 - 499 mg/dL Very High > or = 500 mg/dL Serum or plasma cholesterol in HDL measurement (mass/volume)Ordered By: Adam Ferraro on 07-28-2023 Cholesterol in HDL [Mass/Vol] 36 mg/dL >40 [facility] Comment on above: The drugs N-Acetylcy steine and Metamizole may falsely depress this assay. Reference Range HDL <40 mg/dL Low HDL Cholesterol HDL >or= 60 mg/dL High HDL Cholesterol Serum or plasma cholesterol in VLDL measurement (mass/volume)Ordered By: Adam Ferraro on 07-28-2023 Cholesterol in VLDL [Mass/Vol] 47 mg/dL 5-40 [facility] Serum or plasma low density lipoprotein (LDL) cholesterol measurement (mass/volume)Ordered By: Adam Ferraro on 07-28-2023 Cholesterol in LDL [Mass/Vol] 41 mg/dL 0-130 [facility] Serum or plasma uric acid me asurement (mass/volume)Ordered By: Adam Ferraro on 07-28-2023 Urate [Mass/Vol] 6.6 mg/dL 3.5-7.2 [facility] Comment on above: The drugs N-Acetylcy steine and Metamizole may falsely depress this assay. Urine creatinine measurement (mass/volume)Ordered By: Adam Ferraro on 07-24-2023 Creatinine (U) [Mass/Vol] 113.00 mg/dL NO RANGE EST. [facility] Urine protein measurement (m ass/volume)Ordered By: Adam Ferraro on 07-24-2023 Protein (U) [Mass/Vol] 15.1 mg/dL 0.0-11.8 [facility] Urine protein/creatinine mas s ratioOrdered By: Adam Ferraro on 07-24-2023 Protein/Creatinine (U) [Mass ratio] 134 mg/g CRE 0-200 [facility] Absolute lymphocyte countOrd ered By: Alfredo Phipps on 07-22-2023 Lymphocytes Auto (Unsp spec) [#/Vol] 1.60 10*3/uL 0.83-4.51 [facility] Basophil percentageOrdered B y: Alfredo Phipps on 07-22-2023 Basophil percentage 4.2 mg/dL 2.5-4.9 [facility] Basophils/100 WBC (Bld) 1.1 % 0-1 [facility] [facility] Chlor[facility] [Moles/Vol] 108 mmol/L 98-107 [facility] Eosinophils/100 WBC (Bld) 2.7 % 0-5 [facility] Glucose [Mass/Vol] 138 mg/dL 74-106 [facility] Comment on above: Fasting Glucose resu lt greater than or equal to 126 mg/dL suggests DIABETES MELLITUS per A.D.A. criteria. Neutrophils (Bld) [#/Vol] 6.9 10*3/uL 2.0-7.7 [facility] Neutrophils/100 WBC (Bld) 69.3 % 47-70 [facility] Potassium [Moles/Vol] 3.8 mmol/L 3.5-5.1 [facility] Sodium [Moles/Vol] 135 mmol/L 136-145 [facility] WBC (Bld) [#/Vol] 9.9 10*3/uL 4.4-11.0 [facility] Blood erythrocytes count (nu mber/volume)Ordered By: Alfredo Phipps on 07-22-2023 RBC (Bld) [#/Vol] 4.79 10*6/uL 4.6-6.2 [facility] Blood hemoglobin measurement (mass/volume)Ordered By: Alfredo Phipps on 07-22-2023 Hemoglobin (Bld) [Mass/Vol] 13.6 g/dL 13.0-16.5 [facility] Blood lymphocytes/100 leukoc ytesOrdered By: Alfredo Phipps on 07-22-2023 Lymphocytes/100 WBC (Bld) 16.1 % 19-41 [facility] Blood monocytes/100 leukocyt esOrdered By: Alfredo Phipps on 07-22-2023 Monocytes/100 WBC (Bld) 10.2 % 0-10 [facility] Blood platelet mean volumeOr dered By: Alfredo Phipps on 07-22-2023 Platelet mean volume (Bld) [Entitic vol] 10.8 fL 6.2-12.0 [facility] Determination of erythrocyte mean corpuscular volume (MCV)Ordered By: Alfredo Phipps on 07-22-2023 MCV (RBC) [Entitic vol] 98.1 fL 80-94 [facility] Hematocrit Auto (Bld) [Volum e fraction]Ordered By: Alfredo Phipps on 07-22-2023 Hematocrit (Bld) [Volume fraction] 47.0 % 40-54 [facility] Laboratory - Chemistry and C hemistry - challengeOrdered By: Alfredo Phipps on 07-22-2023 CO2 [Moles/Vol] 19.0 mmol/L 21.0-32.0 [facility] Urea nitrogen/Creatinine [Mass ratio] 10.7 mg/mg 10-20 [facility] Laboratory - Hematology and Cell countsOrdered By: Alfredo Phipps on 07-22-2023 Erythrocyte distribution width (RBC) [Entitic vol] 58.0 fL 35.1-43.9 [facility] Erythrocyte distribution width (RBC) [Ratio] 16.4 % 11.6-14.6 [facility] Immature granulocytes/100 WBC (Bld) 0.600 % 0.0-0.9 [facility] Comment on above: IG% - Immature Granu locytes (promyelocytes, myelocytes and metamyelocytes) > 1% indicates that a LEFT SHIFT is Present. MCH (RBC) [Entitic mass] 28.4 pg 27.0-32.0 [facility] Nucleated RBC/100 WBC (Bld) [Ratio] 0 % 0-5 [facility] MCHC Auto (RBC) [Mass/Vol]Or dered By: Alfredo Phipps on 07-22-2023 MCHC (RBC) [Mass/Vol] 28.9 g/dL 32-36 [facility] No Panel InformationOrdered By: Alfredo Phipps on 07-22-2023 Estimated GFR (MDRD) Amer 45 mL/min >60 [facility] Comment on above: GFR Calc Estimated GFR (MDRD) Non-Af Amer 37 mL/min >60 [facility] Comment on above: Non- GFR Calc [place] Level 0.60 mmol/L 0.60-1.20 [facility] Platelets bldOrdered By: Pet shonda Phipps on 07-22-2023 Platelets (Bld) [#/Vol] 209 10*3/uL 150-450 [facility] Serum or plasma albumin you urement (mass/volume)Ordered By: Alfredo Phipps on 07-22-2023 Albumin [Mass/Vol] 2.6 g/dL 3.2-5.0 [facility] Serum or plasma calcium you urement (mass/volume)Ordered By: Alfredo Phipps on 07-22-2023 Calcium [Mass/Vol] 9.1 mg/dL 8.5-10.1 [facility] Serum or plasma creatinine m easurement (mass/volume)Ordered By: Alfredo Phipps on 07-22-2023 Creatinine [Mass/Vol] 1.97 mg/dL 0.70-1.30 [facility] Comment on above: The validity of the calculated GFR & GFRAA in patients over 70 years has not been determined. Clinical correlation is essential. Serum or plasma urea nitroge n measurement (mass/volume)Ordered By: Alfredo Phipps on 07-22-2023 Urea nitrogen [Mass/Vol] 21 mg/dL 7-18 [facility] Absolute lymphocyte countOrd ered By: Alfredo Phipps on 06-24-2023 Lymphocytes Auto (Unsp spec) [#/Vol] 2.04 10*3/uL 0.83-4.51 [facility] Basophil percentageOrdered B y: Alfredo Phipps on 06-24-2023 Basophil percentage 4.4 mg/dL 2.5-4.9 [facility] Basophils/100 WBC (Bld) 1.2 % 0-1 [facility] Chloride [Moles/Vol] 107 mmol/L 98-107 [facility] Eosinophils/100 WBC (Bld) 5.2 % 0-5 [facility] Glucose [Mass/Vol] 144 mg/dL 74-106 [facility] Comment on above: Fasting Glucose resu lt greater than or equal to 126 mg/dL suggests DIABETES MELLITUS per A.D.A. criteria. Neutrophils (Bld) [#/Vol] 5.9 10*3/uL 2.0-7.7 [facility] Neutrophils/100 WBC (Bld) 62.3 % 47-70 [facility] Potassium [Moles/Vol] 3.7 mmol/L 3.5-5.1 [facility] Sodium [Moles/Vol] 138 mmol/L 136-145 [facility] WBC (Bld) [#/Vol] 9.4 10*3/uL 4.4-11.0 [facility] Blood erythrocytes count (nu mber/volume)Ordered By: Alfredo Phipps on 06-24-2023 RBC (Bld) [#/Vol] 4.95 10*6/uL 4.6-6.2 [facility] Blood hemoglobin measurement (mass/volume)Ordered By: Alfredo Phipps on 06-24-2023 Hemoglobin (Bld) [Mass/Vol] 14.2 g/dL 13.0-16.5 [facility] Blood lymphocytes/100 leukoc ytesOrdered By: Alfredo Phipps on 06-24-2023 Lymphocytes/100 WBC (Bld) 21.7 % 19-41 [facility] Blood monocytes/100 leukocyt esOrdered By: Alfredo Phipps on 06-24-2023 Monocytes/100 WBC (Bld) 9.1 % 0-10 [facility] Blood platelet mean volumeOr dered By: Alfredo Phipps on 06-24-2023 Platelet mean volume (Bld) [Entitic vol] 9.8 fL 6.2-12.0 [facility] Determination of erythrocyte mean corpuscular volume (MCV)Ordered By: Alfredo Phipps on 06-24-2023 MCV (RBC) [Entitic vol] 88.5 fL 80-94 [facility] Hematocrit Auto (Bld) [Volum e fraction]Ordered By: Alfredo Phipps on 06-24-2023 Hematocrit (Bld) [Volume fraction] 43.8 % 40-54 [facility] Laboratory - Chemistry and C hemistry - challengeOrdered By: Alfredo Phipps on 06-24-2023 CO2 [Moles/Vol] 25.0 mmol/L 21.0-32.0 [facility] Urea nitrogen/Creatinine [Mass ratio] 11.5 mg/mg 10-20 [facility] Laboratory - Hematology and Cell countsOrdered By: Alfredo Phipps on 06-24-2023 Erythrocyte distribution width (RBC) [Entitic vol] 42.3 fL 35.1-43.9 [facility] Erythrocyte distribution width (RBC) [Ratio] 13.1 % 11.6-14.6 [facility] Immature granulocytes/100 WBC (Bld) 0.500 % 0.0-0.9 [facility] Comment on above: IG% - Immature Granu locytes (promyelocytes, myelocytes and metamyelocytes) > 1% indicates that a LEFT SHIFT is Present. MCH (RBC) [Entitic mass] 28.7 pg 27.0-32.0 [facility] Nucleated RBC/100 WBC (Bld) [Ratio] 0 % 0-5 [facility] MCHC Auto (RBC) [Mass/Vol]Or dered By: Alfredo Phipps on 06-24-2023 MCHC (RBC) [Mass/Vol] 32.4 g/dL 32-36 [facility] No Panel InformationOrdered By: Alfredo Phipps on 06-24-2023 Estimated GFR (MDRD) Amer 49 mL/min >60 [facility] Comment on above: GFR Calc Estimated GFR (MDRD) Non-Af Amer 40 mL/min >60 [facility] Comment on above: Non- GFR Calc [place] Level 0.60 mmol/L 0.60-1.20 [facility] Platelets bldOrdered By: Jennifer Phipps on 06-24-2023 Platelets (Bld) [#/Vol] 213 10*3/uL 150-450 [facility] Serum or plasma albumin you urement (mass/volume)Ordered By: Alfredo Phipps on 06-24-2023 Albumin [Mass/Vol] 2.9 g/dL 3.2-5.0 [facility] Serum or plasma calcium you urement (mass/volume)Ordered By: Alfredo Phipps on 06-24-2023 Calcium [Mass/Vol] 9.1 mg/dL 8.5-10.1 [facility] Serum or plasma creatinine m easurement (mass/volume)Ordered By: Alfredo Phipps on 06-24-2023 Creatinine [Mass/Vol] 1.83 mg/dL 0.70-1.30 [facility] Comment on above: The validity of the calculated GFR & GFRAA in patients over 70 years has not been determined. Clinical correlation is essential. Serum or plasma urea nitroge n measurement (mass/volume)Ordered By: Alfredo Phipps on 06-24-2023 Urea nitrogen [Mass/Vol] 21 mg/dL 7-18 [facility] Serum or plasma uric acid me asurement (mass/volume)Ordered By: Alfredo Phipps on 06-24-2023 Urate [Mass/Vol] 6.5 mg/dL 3.5-7.2 [facility] Comment on above: The drugs N-Acetylcy steine and Metamizole may falsely depress this assay. Urine creatinine measurement (mass/volume)Ordered By: Alfredo Phipps on 06-24-2023 Creatinine (U) [Mass/Vol] 127.00 mg/dL NO RANGE EST. [facility] Urine protein measurement (m ass/volume)Ordered By: Alfredo Phipps on 06-24-2023 Protein (U) [Mass/Vol] 19.9 mg/dL 0.0-11.8 [facility] Urine protein/creatinine mas s ratioOrdered By: Alfredo Phipps on 06-24-2023 Protein/Creatinine (U) [Mass ratio] 157 mg/g CRE 0-200 [facility] Urine creatinine measurement (mass/volume)Ordered By: Adam Ferraro on 05-30-2023 Creatinine (U) [Mass/Vol] 73.90 mg/dL NO RANGE EST. [facility] Urine protein measurement (m ass/volume)Ordered By: Adam Ferraro on 05-30-2023 Protein (U) [Mass/Vol] 18.0 mg/dL 0.0-11.8 [facility] Urine protein/creatinine mas s ratioOrdered By: Adam Ferraro on 05-30-2023 Protein/Creatinine (U) [Mass ratio] 244 mg/g CRE 0-200 [facility] Absolute lymphocyte countOrd ered By: Adam Ferraro on 05-27-2023 Lymphocytes Auto (Unsp spec) [#/Vol] 1.85 10*3/uL 0.83-4.51 [facility] Basophil percentageOrdered B y: Adam Ferraro on 05-27-2023 Basophil percentage 3.9 mg/dL 2.5-4.9 [facility] Basophils/100 WBC (Bld) 1.1 % 0-1 [facility] Chloride [Moles/Vol] 106 mmol/L 98-107 [facility] Eosinophils/100 WBC (Bld) 3.3 % 0-5 [facility] Glucose [Mass/Vol] 208 mg/dL 74-106 [facility] Comment on above: Glucose result great er than or equal to 200 mg/dLsuggests DIABETES MELLITUS per A.D.A. criteria. Neutrophils (Bld) [#/Vol] 5.6 10*3/uL 2.0-7.7 [facility] Neutrophils/100 WBC (Bld) 64.5 % 47-70 [facility] Potassium [Moles/Vol] 3.7 mmol/L 3.5-5.1 [facility] Sodium [Moles/Vol] 138 mmol/L 136-145 [facility] WBC (Bld) [#/Vol] 8.7 10*3/uL 4.4-11.0 [facility] Blood erythrocytes count (nu mber/volume)Ordered By: Adam Ferraro on 05-27-2023 RBC (Bld) [#/Vol] 4.98 10*6/uL 4.6-6.2 [facility] Blood hemoglobin measurement (mass/volume)Ordered By: Adam Ferraro on 05-27-2023 Hemoglobin (Bld) [Mass/Vol] 14.4 g/dL 13.0-16.5 [facility] Blood lymphocytes/100 leukoc ytesOrdered By: Adam Ferraro on 05-27-2023 Lymphocytes/100 WBC (Bld) 21.2 % 19-41 [facility] Blood monocytes/100 leukocyt esOrdered By: Adam Ferraro on 05-27-2023 Monocytes/100 WBC (Bld) 9.3 % 0-10 [facility] Blood platelet mean volumeOr dered By: Adam Ferraro on 05-27-2023 Platelet mean volume (Bld) [Entitic vol] 10.0 fL 6.2-12.0 [facility] Determination of erythrocyte mean corpuscular volume (MCV)Ordered By: Adam Ferraro on 05-27-2023 MCV (RBC) [Entitic vol] 89.6 fL 80-94 [facility] Hematocrit Auto (Bld) [Volum e fraction]Ordered By: Adam Ferraro on 05-27-2023 Hematocrit (Bld) [Volume fraction] 44.6 % 40-54 [facility] Laboratory - Chemistry and C hemistry - challengeOrdered By: Adam Ferraro on 05-27-2023 CO2 [Moles/Vol] 27.0 mmol/L 21.0-32.0 [facility] Urea nitrogen/Creatinine [Mass ratio] 11.5 mg/mg 10-20 [facility] Laboratory - Hematology and Cell countsOrdered By: Adam Ferraro on 05-27-2023 Erythrocyte distribution width (RBC) [Entitic vol] 42.2 fL 35.1-43.9 [facility] Erythrocyte distribution width (RBC) [Ratio] 13.0 % 11.6-14.6 [facility] Immature granulocytes/100 WBC (Bld) 0.600 % 0.0-0.9 [facility] Comment on above: IG% - Immature Granu locytes (promyelocytes, myelocytes and metamyelocytes) > 1% indicates that a LEFT SHIFT is Present. MCH (RBC) [Entitic mass] 28.9 pg 27.0-32.0 [facility] Nucleated RBC/100 WBC (Bld) [Ratio] 0 % 0-5 [facility] MCHC Auto (RBC) [Mass/Vol]Or dered By: Adam Ferraro on 05-27-2023 MCHC (RBC) [Mass/Vol] 32.3 g/dL 32-36 [facility] No Panel InformationOrdered By: Adam Ferraro on 05-27-2023 Estimated GFR (MDRD) Amer 52 mL/min >60 [facility] Comment on above: GFR Calc Estimated GFR (MDRD) Non-Af Amer 43 mL/min >60 [facility] Comment on above: Non- GFR Calc [place] Level 0.40 mmol/L 0.60-1.20 [facility] Platelets bldOrdered By: Benoit loni Jasmine on 05-27-2023 Platelets (Bld) [#/Vol] 211 10*3/uL 150-450 [facility] Serum or plasma albumin you urement (mass/volume)Ordered By: Adam Ferraro on 05-27-2023 Albumin [Mass/Vol] 2.9 g/dL 3.2-5.0 [facility] Serum or plasma calcium you urement (mass/volume)Ordered By: Adam Ferraro on 05-27-2023 Calcium [Mass/Vol] 9.2 mg/dL 8.5-10.1 [facility] Serum or plasma creatinine m easurement (mass/volume)Ordered By: Adam Ferraro on 05-27-2023 Creatinine [Mass/Vol] 1.74 mg/dL 0.70-1.30 [facility] Comment on above: The validity of the calculated GFR & GFRAA in patients over 70 years has not been determined. Clinical correlation is essential. Serum or plasma urea nitroge n measurement (mass/volume)Ordered By: Adam Ferraro on 05-27-2023 Urea nitrogen [Mass/Vol] 20 mg/dL 7-18 [facility] Serum or plasma uric acid me asurement (mass/volume)Ordered By: dAam Ferraro on 05-27-2023 Urate [Mass/Vol] 4.9 mg/dL 3.5-7.2 [facility] Comment on above: The drugs N-Acetylcy steine and Metamizole may falsely depress this assay. Whole blood hemoglobin A1c/t otal hemoglobin ratio (mass fraction)Ordered By: Adam Ferraro on 05-19-2023 HbA1c (Bld) [Mass fraction] 11.1 % 3.8-5.6 [facility] Comment on above: Normal < 5.7 % Predi abetic 5.7 - 6.4 % Diabetic >or= 6.5 % Please note range changes. Absolute lymphocyte countOrd ered By: Alfredo Phipps on 04-29-2023 Lymphocytes Auto (Unsp spec) [#/Vol] 1.98 10*3/uL 0.83-4.51 [facility] Basophil percentageOrdered B y: Alfredo Phipps on 04-29-2023 Basophil percentage 3.6 mg/dL 2.5-4.9 [facility] Basophils/100 WBC (Bld) 1.0 % 0-1 [facility] Chloride [Moles/Vol] 105 mmol/L 98-107 [facility] Eosinophils/100 WBC (Bld) 2.7 % 0-5 [facility] Glucose [Mass/Vol] 300 mg/dL 74-106 [facility] Comment on above: Glucose result great er than or equal to 200 mg/dLsuggests DIABETES MELLITUS per A.D.A. criteria. Neutrophils (Bld) [#/Vol] 5.7 10*3/uL 2.0-7.7 [facility] Neutrophils/100 WBC (Bld) 64.2 % 47-70 [facility] Potassium [Moles/Vol] 3.9 mmol/L 3.5-5.1 [facility] Sodium [Moles/Vol] 138 mmol/L 136-145 [facility] WBC (Bld) [#/Vol] 8.9 10*3/uL 4.4-11.0 [facility] Blood erythrocytes count (nu mber/volume)Ordered By: Alfredo Phipps on 04-29-2023 RBC (Bld) [#/Vol] 4.74 10*6/uL 4.6-6.2 [facility] Blood hemoglobin measurement (mass/volume)Ordered By: Alfredo Phipps on 04-29-2023 Hemoglobin (Bld) [Mass/Vol] 13.6 g/dL 13.0-16.5 [facility] Blood lymphocytes/100 leukoc ytesOrdered By: Alfredo Phipps on 04-29-2023 Lymphocytes/100 WBC (Bld) 22.2 % 19-41 [facility] Blood monocytes/100 leukocyt esOrdered By: Alfredo Phipps on 04-29-2023 Monocytes/100 WBC (Bld) 9.2 % 0-10 [facility] Blood platelet mean volumeOr dered By: Alfredo Phipps on 04-29-2023 Platelet mean volume (Bld) [Entitic vol] 9.7 fL 6.2-12.0 [facility] Determination of erythrocyte mean corpuscular volume (MCV)Ordered By: Alfredo Phipps on 04-29-2023 MCV (RBC) [Entitic vol] 87.8 fL 80-94 [facility] Hematocrit Auto (Bld) [Volum e fraction]Ordered By: Alfredo Phipps on 04-29-2023 Hematocrit (Bld) [Volume fraction] 41.6 % 40-54 [facility] Laboratory - Chemistry and C hemistry - challengeOrdered By: Alfredo Phipps on 04-29-2023 CO2 [Moles/Vol] 24.0 mmol/L 21.0-32.0 [facility] Urea nitrogen/Creatinine [Mass ratio] 13.7 mg/mg 10-20 [facility] Laboratory - Hematology and Cell countsOrdered By: Alfredo Phipps on 04-29-2023 Erythrocyte distribution width (RBC) [Entitic vol] 41.7 fL 35.1-43.9 [facility] Erythrocyte distribution width (RBC) [Ratio] 12.9 % 11.6-14.6 [facility] Immature granulocytes/100 WBC (Bld) 0.700 % 0.0-0.9 [facility] Comment on above: IG% - Immature Granu locytes (promyelocytes, myelocytes and metamyelocytes) > 1% indicates that a LEFT SHIFT is Present. MCH (RBC) [Entitic mass] 28.7 pg 27.0-32.0 [facility] Nucleated RBC/100 WBC (Bld) [Ratio] 0 % 0-5 [facility] MCHC Auto (RBC) [Mass/Vol]Or dered By: Alfredo Phipps on 04-29-2023 MCHC (RBC) [Mass/Vol] 32.7 g/dL 32-36 [facility] No Panel InformationOrdered By: Alfredo Phipps on 04-29-2023 Estimated GFR (MDRD) Amer 51 mL/min >60 [facility] Comment on above: GFR Calc Estimated GFR (MDRD) Non-Af Amer 43 mL/min >60 [facility] Comment on above: Non- GFR Calc [place] Level 0.40 mmol/L 0.60-1.20 [facility] Platelets bldOrdered By: Jennifer Phipps on 04-29-2023 Platelets (Bld) [#/Vol] 204 10*3/uL 150-450 [facility] Serum or plasma albumin you urement (mass/volume)Ordered By: Alfredo Phipps on 04-29-2023 Albumin [Mass/Vol] 2.7 g/dL 3.2-5.0 [facility] Serum or plasma calcium you urement (mass/volume)Ordered By: Alfredo Phipps on 04-29-2023 Calcium [Mass/Vol] 8.9 mg/dL 8.5-10.1 [facility] Serum or plasma creatinine m easurement (mass/volume)Ordered By: Alfredo Phipps on 04-29-2023 Creatinine [Mass/Vol] 1.75 mg/dL 0.70-1.30 [facility] Comment on above: The validity of the calculated GFR & GFRAA in patients over 70 years has not been determined. Clinical correlation is essential. Serum or plasma urea nitroge n measurement (mass/volume)Ordered By: Alfredo Phipps on 04-29-2023 Urea nitrogen [Mass/Vol] 24 mg/dL 7-18 [facility] Serum or plasma uric acid me asurement (mass/volume)Ordered By: Alfredo Phipps on 04-27-2023 Urate [Mass/Vol] 4.8 mg/dL 3.5-7.2 [facility] Comment on above: The drugs N-Acetylcy steine and Metamizole may falsely depress this assay. Urine creatinine measurement (mass/volume)Ordered By: Adam Ferraro on 04-04-2023 Creatinine (U) [Mass/Vol] 96.50 mg/dL NO RANGE EST. [facility] Urine protein measurement (m ass/volume)Ordered By: Adam Ferraro on 04-04-2023 Protein (U) [Mass/Vol] 26.4 mg/dL 0.0-11.8 [facility] Urine protein/creatinine mas s ratioOrdered By: Adam Ferraro on 04-04-2023 Protein/Creatinine (U) [Mass ratio] 274 mg/g CRE 0-200 [facility] Absolute lymphocyte countOrd ered By: Adam Ferraro on 04-01-2023 Lymphocytes Auto (Unsp spec) [#/Vol] 1.91 10*3/uL 0.83-4.51 [facility] Basophil percentageOrdered B y: Adam Ferraro on 04-01-2023 Basophil percentage 3.3 mg/dL 2.5-4.9 [facility] Basophils/100 WBC (Bld) 1.1 % 0-1 [facility] Chloride [Moles/Vol] 105 mmol/L 98-107 [facility] Eosinophils/100 WBC (Bld) 2.7 % 0-5 [facility] Glucose [Mass/Vol] 317 mg/dL 74-106 [facility] Comment on above: Glucose result great er than or equal to 200 mg/dLsuggests DIABETES MELLITUS per A.D.A. criteria. Neutrophils (Bld) [#/Vol] 5.4 10*3/uL 2.0-7.7 [facility] Neutrophils/100 WBC (Bld) 64.7 % 47-70 [facility] Potassium [Moles/Vol] 3.8 mmol/L 3.5-5.1 [facility] Sodium [Moles/Vol] 137 mmol/L 136-145 [facility] WBC (Bld) [#/Vol] 8.4 10*3/uL 4.4-11.0 [facility] Blood erythrocytes count (nu mber/volume)Ordered By: Adam Ferraro on 04-01-2023 RBC (Bld) [#/Vol] 5.17 10*6/uL 4.6-6.2 [facility] Blood hemoglobin measurement (mass/volume)Ordered By: Adam Ferraro on 04-01-2023 Hemoglobin (Bld) [Mass/Vol] 14.7 g/dL 13.0-16.5 [facility] Blood lymphocytes/100 leukoc ytesOrdered By: Adam Ferraro on 04-01-2023 Lymphocytes/100 WBC (Bld) 22.7 % 19-41 [facility] Blood monocytes/100 leukocyt esOrdered By: Adam Ferraro on 04-01-2023 Monocytes/100 WBC (Bld) 8.2 % 0-10 [facility] Blood platelet mean volumeOr dered By: Adam Ferraro on 04-01-2023 Platelet mean volume (Bld) [Entitic vol] 9.8 fL 6.2-12.0 [facility] Determination of erythrocyte mean corpuscular volume (MCV)Ordered By: Adam Ferraro on 04-01-2023 MCV (RBC) [Entitic vol] 88.6 fL 80-94 [facility] Hematocrit Auto (Bld) [Volum e fraction]Ordered By: Adam Ferraro on 04-01-2023 Hematocrit (Bld) [Volume fraction] 45.8 % 40-54 [facility] Laboratory - Chemistry and C hemistry - challengeOrdered By: Adam Ferraro on 04-01-2023 CO2 [Moles/Vol] 25.0 mmol/L 21.0-32.0 [facility] Urea nitrogen/Creatinine [Mass ratio] 13.7 mg/mg 10-20 [facility] [facility] - Hematology and Cell countsOrdered By: Adam Ferraro on 04-01-2023 Erythrocyte distribution width (RBC) [Entitic vol] 42.5 fL 35.1-43.9 [facility] Erythrocyte distribution width (RBC) [Ratio] 13.1 % 11.6-14.6 [facility] Immature granulocytes/100 WBC (Bld) 0.600 % 0.0-0.9 [facility] Comment on above: IG% - Immature Granu locytes (promyelocytes, myelocytes and metamyelocytes) > 1% indicates that a LEFT SHIFT is Present. MCH (RBC) [Entitic mass] 28.4 pg 27.0-32.0 [facility] Nucleated RBC/100 WBC (Bld) [Ratio] 0 % 0-5 [facility] MCHC Auto (RBC) [Mass/Vol]Or dered By: Adam Ferraro on 04-01-2023 MCHC (RBC) [Mass/Vol] 32.1 g/dL 32-36 [facility] No Panel InformationOrdered By: Adam Ferraro on 04-01-2023 Estimated GFR (MDRD) Amer 49 mL/min >60 [facility] Comment on above: GFR Calc Estimated GFR (MDRD) Non-Af Amer 41 mL/min >60 [facility] Comment on above: Non- GFR Calc [place] Level < 0.20 mmol/L 0.60-1.20 [facility] Platelets bldOrdered By: Benoit Ferraro on 04-01-2023 Platelets (Bld) [#/Vol] 209 10*3/uL 150-450 [facility] Serum or plasma albumin you urement (mass/volume)Ordered By: Adam Ferraro on 04-01-2023 Albumin [Mass/Vol] 3.0 g/dL 3.2-5.0 [facility] Serum or plasma calcium you urement (mass/volume)Ordered By: Adam Ferraro on 04-01-2023 Calcium [Mass/Vol] 8.9 mg/dL 8.5-10.1 [facility] Serum or plasma creatinine m easurement (mass/volume)Ordered By: Adam Ferraro on 04-01-2023 Creatinine [Mass/Vol] 1.82 mg/dL 0.70-1.30 [facility] Comment on above: The validity of the calculated GFR & GFRAA in patients over 70 years has not been determined. Clinical correlation is essential. Serum or plasma urea nitroge n measurement (mass/volume)Ordered By: Adam Ferraro on 04-01-2023 Urea nitrogen [Mass/Vol] 25 mg/dL 7-18 [facility] Absolute lymphocyte countOrd ered By: Alfredo Phipps on 03-04-2023 Lymphocytes Auto (Unsp spec) [#/Vol] 2.18 10*3/uL 0.83-4.51 [facility] Basophil percentageOrdered B y: Alfredo Phipps on 03-04-2023 Basophil percentage 3.9 mg/dL 2.5-4.9 [facility] Basophils/100 WBC (Bld) 0.9 % 0-1 [facility] Chloride [Moles/Vol] 109 mmol/L 98-107 [facility] Eosinophils/100 WBC (Bld) 3.5 % 0-5 [facility] Glucose [Mass/Vol] 179 mg/dL 74-106 [facility] Comment on above: Fasting Glucose resu lt greater than or equal to 126 mg/dL suggests DIABETES MELLITUS per A.D.A. criteria. Neutrophils (Bld) [#/Vol] 6.1 10*3/uL 2.0-7.7 [facility] Neutrophils/100 WBC (Bld) 63.2 % 47-70 [facility] Potassium [Moles/Vol] 3.9 mmol/L 3.5-5.1 [facility] Sodium [Moles/Vol] 138 mmol/L 136-145 [facility] WBC (Bld) [#/Vol] 9.6 10*3/uL 4.4-11.0 [facility] Blood erythrocytes count (nu mber/volume)Ordered By: Alfredo Phipps on 03-04-2023 RBC (Bld) [#/Vol] 4.74 10*6/uL 4.6-6.2 [facility] Blood hemoglobin measurement (mass/volume)Ordered By: Alfredo Phipps on 03-04-2023 Hemoglobin (Bld) [Mass/Vol] 13.6 g/dL 13.0-16.5 [facility] Blood lymphocytes/100 leukoc ytesOrdered By: Alfredo Phipps on 03-04-2023 Lymphocytes/100 WBC (Bld) 22.6 % 19-41 [facility] Blood monocytes/100 leukocyt esOrdered By: Alfredo Phipps on 03-04-2023 Monocytes/100 WBC (Bld) 9.4 % 0-10 [facility] Blood platelet mean volumeOr dered By: Alfredo Phipps on 03-04-2023 Platelet mean volume (Bld) [Entitic vol] 9.7 fL 6.2-12.0 [facility] Determination of erythrocyte mean corpuscular volume (MCV)Ordered By: Alfredo Phipps on 03-04-2023 MCV (RBC) [Entitic vol] 90.3 fL 80-94 [facility] Hematocrit Auto (Bld) [Volum e fraction]Ordered By: Alfredo Phipps on 03-04-2023 Hematocrit (Bld) [Volume fraction] 42.8 % 40-54 [facility] Laboratory - Chemistry and C hemistry - challengeOrdered By: Alfredo Phipps on 03-04-2023 CO2 [Moles/Vol] 26.0 mmol/L 21.0-32.0 [facility] Urea nitrogen/Creatinine [Mass ratio] 13.9 mg/mg 10-20 [facility] Laboratory - Hematology and Cell countsOrdered By: Alfredo Phipps on 03-04-2023 Erythrocyte distribution width (RBC) [Entitic vol] 42.8 fL 35.1-43.9 [facility] Erythrocyte distribution width (RBC) [Ratio] 12.9 % 11.6-14.6 [facility] Immature granulocytes/100 WBC (Bld) 0.400 % 0.0-0.9 [facility] Comment on above: IG% - Immature Granu locytes (promyelocytes, myelocytes and metamyelocytes) > 1% indicates that a LEFT SHIFT is Present. MCH (RBC) [Entitic mass] 28.7 pg 27.0-32.0 [facility] Nucleated RBC/100 WBC (Bld) [Ratio] 0 % 0-5 [facility] MCHC Auto (RBC) [Mass/Vol]Or dered By: Alfredo Phipps on 03-04-2023 MCHC (RBC) [Mass/Vol] 31.8 g/dL 32-36 [facility] No Panel InformationOrdered By: Alfredo Phipps on 03-04-2023 Estimated GFR (MDRD) Amer 55 mL/min >60 [facility] Comment on above: GFR Calc Estimated GFR (MDRD) Non-Af Amer 46 mL/min >60 [facility] Comment on above: Non- GFR Calc [place] Level 0.40 mmol/L 0.60-1.20 [facility] Platelets bldOrdered By: Jennifer Phipps on 03-04-2023 Platelets (Bld) [#/Vol] 207 10*3/uL 150-450 [facility] Serum or plasma albumin you urement (mass/volume)Ordered By: Alfredo Phipps on 03-04-2023 Albumin [Mass/Vol] 2.8 g/dL 3.2-5.0 [facility] Serum or plasma calcium you urement (mass/volume)Ordered By: Alfredo Phipps on 03-04-2023 Calcium [Mass/Vol] 9.2 mg/dL 8.5-10.1 [facility] Serum or plasma creatinine m easurement (mass/volume)Ordered By: Alfredo Phipps on 03-04-2023 Creatinine [Mass/Vol] 1.65 mg/dL 0.70-1.30 [facility] Comment on above: The validity of the calculated GFR & GFRAA in patients over 70 years has not been determined. Clinical correlation is essential. Serum or plasma urea nitroge n measurement (mass/volume)Ordered By: Alfredo Phipps on 03-04-2023 Urea nitrogen [Mass/Vol] 23 mg/dL 7-18 [facility] Serum or plasma uric acid me asurement (mass/volume)Ordered By: Alfredo Phipps on 02-25-2023 Urate [Mass/Vol] 5.6 mg/dL 3.5-7.2 [facility] Comment on above: The drugs N-Acetylcy steine and Metamizole may falsely depress this assay. Absolute lymphocyte countOrd ered By: Alfredo Phipps on 02-04-2023 Lymphocytes Auto (Unsp spec) [#/Vol] 2.03 10*3/uL 0.83-4.51 [facility] Basophil percentageOrdered B y: Alfredo Phipps on 02-04-2023 Basophil percentage 4.3 mg/dL 2.5-4.9 [facility] Basophils/100 WBC (Bld) 1.2 % 0-1 [facility] Chloride [Moles/Vol] 108 mmol/L 98-107 [facility] Eosinophils/100 WBC (Bld) 3.6 % 0-5 [facility] Glucose [Mass/Vol] 193 mg/dL 74-106 [facility] Comment on above: Fasting Glucose resu lt greater than or equal to 126 mg/dL suggests DIABETES MELLITUS per A.D.A. criteria. Neutrophils (Bld) [#/Vol] 6.1 10*3/uL 2.0-7.7 [facility] Neutrophils/100 WBC (Bld) 63.9 % 47-70 [facility] Potassium [Moles/Vol] 4.0 mmol/L 3.5-5.1 [facility] Sodium [Moles/Vol] 139 mmol/L 136-145 [facility] WBC (Bld) [#/Vol] 9.5 10*3/uL 4.4-11.0 [facility] Blood erythrocytes count (nu mber/volume)Ordered By: Alfredo Phipps on 02-04-2023 RBC (Bld) [#/Vol] 4.81 10*6/uL 4.6-6.2 [facility] Blood hemoglobin measurement (mass/volume)Ordered By: Alfredo Phipps on 02-04-2023 Hemoglobin (Bld) [Mass/Vol] 13.9 g/dL 13.0-16.5 [facility] Blood lymphocytes/100 leukoc ytesOrdered By: Alfredo Phipps on 02-04-2023 Lymphocytes/100 WBC (Bld) 21.4 % 19-41 [facility] Blood monocytes/100 leukocyt esOrdered By: Alfredo Phipps on 02-04-2023 Monocytes/100 WBC (Bld) 9.2 % 0-10 [facility] Blood platelet mean volumeOr dered By: Alfredo Phipps on 02-04-2023 Platelet mean volume (Bld) [Entitic vol] 9.4 fL 6.2-12.0 [facility] Determination of erythrocyte mean corpuscular volume (MCV)Ordered By: Alfredo Phipps on 02-04-2023 MCV (RBC) [Entitic vol] 94.2 fL 80-94 [facility] Hematocrit Auto (Bld) [Volum e fraction]Ordered By: Alfredo Phipps on 02-04-2023 Hematocrit (Bld) [Volume fraction] 45.3 % 40-54 [facility] Laboratory - Chemistry and C hemistry - challengeOrdered By: Alfredo Phipps on 02-04-2023 CO2 [Moles/Vol] 24.0 mmol/L 21.0-32.0 [facility] Urea nitrogen/Creatinine [Mass ratio] 14.6 mg/mg 10-20 [facility] Laboratory - Hematology and Cell countsOrdered By: Alfredo Phipps on 02-04-2023 Erythrocyte distribution width (RBC) [Entitic vol] 45.1 fL 35.1-43.9 [facility] Erythrocyte distribution width (RBC) [Ratio] 13.1 % 11.6-14.6 [facility] Immature granulocytes/100 WBC (Bld) 0.700 % 0.0-0.9 [facility] Comment on above: IG% - Immature Granu locytes (promyelocytes, myelocytes and metamyelocytes) > 1% indicates that a LEFT SHIFT is Present. MCH (RBC) [Entitic mass] 28.9 pg 27.0-32.0 [facility] Nucleated RBC/100 WBC (Bld) [Ratio] 0 % 0-5 [facility] Auto (RBC) [Mass/Vol]Or dered By: Alfredo Phipps on 02-04-2023 MCHC (RBC) [Mass/Vol] 30.7 g/dL 32-36 [facility] No Panel InformationOrdered By: Alfredo Phipps on 02-04-2023 Estimated GFR (MDRD) Amer 53 mL/min >60 [facility] Comment on above: GFR Calc Estimated GFR (MDRD) Non-Af Amer 44 mL/min >60 [facility] Comment on above: Non- GFR Calc [place] Level 0.50 mmol/L 0.60-1.20 [facility] Platelets bldOrdered By: Jennifer Phipps on 02-04-2023 Platelets (Bld) [#/Vol] 182 10*3/uL 150-450 [facility] Serum or plasma albumin you urement (mass/volume)Ordered By: Alfredo Phipps on 02-04-2023 Albumin [Mass/Vol] 2.9 g/dL 3.2-5.0 [facility] Serum or plasma calcium you urement (mass/volume)Ordered By: Alfredo Phipps on 02-04-2023 Calcium [Mass/Vol] 8.9 mg/dL 8.5-10.1 [facility] Serum or plasma creatinine m easurement (mass/volume)Ordered By: Alfredo Phipps on 02-04-2023 Creatinine [Mass/Vol] 1.71 mg/dL 0.70-1.30 [facility] Comment on above: The validity of the calculated GFR & GFRAA in patients over 70 years has not been determined. Clinical correlation is essential. Serum or plasma urea nitroge n measurement (mass/volume)Ordered By: Alfredo Phipps on 02-04-2023 Urea nitrogen [Mass/Vol] 25 mg/dL 7-18 [facility] Serum or plasma uric acid me asurement (mass/volume)Ordered By: Adam Ferraro on 01-25-2023 Urate [Mass/Vol] 5.8 mg/dL 3.5-7.2 [facility] Comment on above: The drugs N-Acetylcy steine and Metamizole may falsely depress this assay. Basophil percentageOrdered B y: Alfredo Phipps on 01-19-2023 Cholesterol [Mass/Vol] 160 mg/dL <200 [facility] Comment on above: <200 mg/dL Desirable 200-240 mg/dL Borderline >240 mg/dL High Risk Triglyceride [Mass/Vol] 322 mg/dL <199 [facility] Comment on above: The drugs N-Acetylcy steine and Metamizole may falsely depress this assay.Serum Triglycerides Reference Interval Normal <150 mg/dL Borderline high 150 - 199 mg/dL High 200 - 499 mg/dL Very High > or = 500 mg/dL Serum or plasma cholesterol in HDL measurement (mass/volume)Ordered By: Alfredo Phipps on 01-19-2023 Cholesterol in HDL [Mass/Vol] 38 mg/dL >40 [facility] Comment on above: The drugs N-Acetylcy steine and Metamizole may falsely depress this assay. Reference Range HDL <40 mg/dL Low HDL Cholesterol HDL >or= 60 mg/dL High HDL Cholesterol Serum or plasma cholesterol in VLDL measurement (mass/volume)Ordered By: Alfredo Phipps on 01-19-2023 Cholesterol in VLDL [Mass/Vol] 64 mg/dL 5-40 [facility] Serum or plasma low density lipoprotein (LDL) cholesterol measurement (mass/volume)Ordered By: Alfredo Phipps on 01-19-2023 Cholesterol in LDL [Mass/Vol] 58 mg/dL 0-130 [facility] Absolute lymphocyte countOrd ered By: Alfredo Phipps on 01-07-2023 Lymphocytes Auto (Unsp spec) [#/Vol] 2.02 10*3/uL 0.83-4.51 [facility] Basophil percentageOrdered B y: Alfredo Phipps on 01-07-2023 Basophil percentage 3.6 mg/dL 2.5-4.9 [facility] Basophils/100 WBC (Bld) 1.0 % 0-1 [facility] Chloride [Moles/Vol] 109 mmol/L 98-[address] [facility] [address] [facility] Eosinophils/100 WBC (Bld) 2.8 % 0-5 [facility] Glucose [Mass/Vol] 236 mg/dL 74-106 [facility] Comment on above: Glucose result great er than or equal to 200 mg/dLsuggests DIABETES MELLITUS per A.D.A. criteria. Neutrophils (Bld) [#/Vol] 5.8 10*3/uL 2.0-7.7 [facility] Neutrophils/100 WBC (Bld) 62.2 % 47-70 [facility] Potassium [Moles/Vol] 4.1 mmol/L 3.5-5.1 [facility] Sodium [Moles/Vol] 141 mmol/L 136-145 [facility] WBC (Bld) [#/Vol] 9.3 10*3/uL 4.4-11.0 [facility] Blood erythrocytes count (nu mber/volume)Ordered By: Alfredo Phipps on 01-07-2023 RBC (Bld) [#/Vol] 4.67 10*6/uL 4.6-6.2 [facility] Blood hemoglobin measurement (mass/volume)Ordered By: Alfredo Phipps on 01-07-2023 Hemoglobin (Bld) [Mass/Vol] 13.5 g/dL 13.0-16.5 [facility] Blood lymphocytes/100 leukoc ytesOrdered By: Alfredo Phipps on 01-07-2023 Lymphocytes/100 WBC (Bld) 21.8 % 19-41 [facility] Blood monocytes/100 leukocyt esOrdered By: Alfredo Phipps on 01-07-2023 Monocytes/100 WBC (Bld) 11.6 % 0-10 [facility] Blood platelet mean volumeOr dered By: Alfredo Phipps on 01-07-2023 Platelet mean volume (Bld) [Entitic vol] 9.8 fL 6.2-12.0 [facility] Determination of erythrocyte mean corpuscular volume (MCV)Ordered By: Alfredo Phipps on 01-07-2023 MCV (RBC) [Entitic vol] 89.7 fL 80-94 [facility] Hematocrit Auto (Bld) [Volum e fraction]Ordered By: Alfredo Phipps on 01-07-2023 Hematocrit (Bld) [Volume fraction] 41.9 % 40-54 [facility] Laboratory - Chemistry and C hemistry - challengeOrdered By: Alfredo Phipps on 01-07-2023 CO2 [Moles/Vol] 26.0 mmol/L 21.0-32.0 [facility] Urea nitrogen/Creatinine [Mass ratio] 13.4 mg/mg 10-20 [facility] Laboratory - Hematology and Cell countsOrdered By: Alfredo Phipps on 01-07-2023 Erythrocyte distribution width (RBC) [Entitic vol] 42.5 fL 35.1-43.9 [facility] Erythrocyte distribution width (RBC) [Ratio] 13.1 % 11.6-14.6 [facility] Immature granulocytes/100 WBC (Bld) 0.600 % 0.0-0.9 [facility] Comment on above: IG% - Immature Granu locytes (promyelocytes, myelocytes and metamyelocytes) > 1% indicates that a LEFT SHIFT is Present. MCH (RBC) [Entitic mass] 28.9 pg 27.0-32.0 [facility] Nucleated RBC/100 WBC (Bld) [Ratio] 0 % 0-5 [facility] MCHC Auto (RBC) [Mass/Vol]Or dered By: Alfredo Phipps on 01-07-2023 MCHC (RBC) [Mass/Vol] 32.2 g/dL 32-36 [facility] No Panel InformationOrdered By: Alfredo Phipps on 01-07-2023 Estimated GFR (MDRD) Amer 48 mL/min >60 [facility] Comment on above: GFR Calc Estimated GFR (MDRD) Non-Af Amer 40 mL/min >60 [facility] Comment on above: Non- GFR Calc [place] Level 0.30 mmol/L 0.60-1.20 [facility] Platelets bldOrdered By: Jennifer Phipps on 01-07-2023 Platelets (Bld) [#/Vol] 203 10*3/uL 150-450 [facility] Serum or plasma albumin you urement (mass/volume)Ordered By: Alfredo Phipps on 01-07-2023 Albumin [Mass/Vol] 2.9 g/dL 3.2-5.0 [facility] Serum or plasma calcium you urement (mass/volume)Ordered By: Alfredo Phipps on 01-07-2023 Calcium [Mass/Vol] 9.0 mg/dL 8.5-10.1 [facility] Serum or plasma creatinine m easurement (mass/volume)Ordered By: Alfredo Phipps on 01-07-2023 Creatinine [Mass/Vol] 1.86 mg/dL 0.70-1.30 [facility] Comment on above: The validity of the calculated GFR & GFRAA in patients over 70 years has not been determined. Clinical correlation is essential. Serum or plasma urea nitroge n measurement (mass/volume)Ordered By: Alfredo Phipps on 01-07-2023 Urea nitrogen [Mass/Vol] 25 mg/dL 7-18 [facility] Serum or plasma uric acid me asurement (mass/volume)Ordered By: Adam Ferraro on 12-28-2022 Urate [Mass/Vol] 5.9 mg/dL 3.5-7.2 [facility] Comment on above: The drugs N-Acetylcy steine and Metamizole may falsely depress this assay. Urine creatinine measurement (mass/volume)Ordered By: Adam Ferraro on 12-15-2022 Creatinine (U) [Mass/Vol] 141.00 mg/dL NO RANGE EST. [facility] Urine protein measurement (m ass/volume)Ordered By: Adam Ferraro on 12-15-2022 Protein (U) [Mass/Vol] 29.9 mg/dL 0.0-11.8 [facility] Urine protein/creatinine mas s ratioOrdered By: Adam Ferraro on 12-15-2022 Protein/Creatinine (U) [Mass ratio] 212 mg/g CRE 0-200 [facility] Absolute lymphocyte countOrd ered By: Adam Ferraro on 12-10-2022 Lymphocytes Auto (Unsp spec) [#/Vol] 1.96 10*3/uL 0.83-4.51 [facility] Basophil percentageOrdered B y: Adam Ferraro on 12-10-2022 Basophil percentage 4.0 mg/dL 2.5-4.9 [facility] Basophils/100 WBC (Bld) 1.2 % 0-1 [facility] Chloride [Moles/Vol] 106 mmol/L 98-107 [facility] Eosinophils/100 WBC (Bld) 3.6 % 0-5 [facility] Glucose [Mass/Vol] 155 mg/dL 74-106 [facility] Comment on above: Fasting Glucose resu lt greater than or equal to 126 mg/dL suggests DIABETES MELLITUS per A.D.A. criteria. Neutrophils (Bld) [#/Vol] 4.9 10*3/uL 2.0-7.7 [facility] Neutrophils/100 WBC (Bld) 60.1 % 47-70 [facility] Potassium [Moles/Vol] 4.1 mmol/L 3.5-5.1 [facility] Sodium [Moles/Vol] 140 mmol/L 136-145 [facility] WBC (Bld) [#/Vol] 8.1 10*3/uL 4.4-11.0 [facility] Blood erythrocytes count (nu mber/volume)Ordered By: Adam Ferraro on 12-10-2022 RBC (Bld) [#/Vol] 4.96 10*6/uL 4.6-6.2 [facility] Blood hemoglobin measurement (mass/volume)Ordered By: Adam Ferraro on 12-10-2022 Hemoglobin (Bld) [Mass/Vol] 14.4 g/dL 13.0-16.5 [facility] Blood lymphocytes/100 leukoc ytesOrdered By: Adam Ferraro on 12-10-2022 Lymphocytes/100 WBC (Bld) 24.1 % 19-41 [facility] Blood monocytes/100 leukocyt esOrdered By: Adam Ferraro on 12-10-2022 Monocytes/100 WBC (Bld) 10.6 % 0-10 [facility] Blood platelet mean volumeOr dered By: Adam Ferraro on 12-10-2022 Platelet mean volume (Bld) [Entitic vol] 9.8 fL 6.2-12.0 [facility] Determination of erythrocyte mean corpuscular volume (MCV)Ordered By: Adam Ferraro on 12-10-2022 MCV (RBC) [Entitic vol] 89.5 fL 80-94 [facility] Hematocrit Auto (Bld) [Volum e fraction]Ordered By: Adam Ferraro on 12-10-2022 Hematocrit (Bld) [Volume fraction] 44.4 % 40-54 [facility] Laboratory - Chemistry and C hemistry - challengeOrdered By: Adam Ferraro on 12-10-2022 CO2 [Moles/Vol] 26.0 mmol/L 21.0-32.0 [facility] Urea nitrogen/Creatinine [Mass ratio] 10.1 mg/mg 10-20 [facility] Laboratory - Hematology and Cell countsOrdered By: Adam Ferraro on 12-10-2022 Erythrocyte distribution width (RBC) [Entitic vol] 42.6 fL 35.1-43.9 [facility] Erythrocyte distribution width (RBC) [Ratio] 13.0 % 11.6-14.6 [facility] Immature granulocytes/100 WBC (Bld) 0.400 % 0.0-0.9 [facility] Comment on above: IG% - Immature Granu locytes (promyelocytes, myelocytes and metamyelocytes) > 1% indicates that a LEFT SHIFT is Present. MCH (RBC) [Entitic mass] 29.0 pg 27.0-32.0 [facility] Nucleated RBC/100 WBC (Bld) [Ratio] 0 % 0-5 [facility] MCHC Auto (RBC) [Mass/Vol]Or dered By: Adam Ferraro on 12-10-2022 MCHC (RBC) [Mass/Vol] 32.4 g/dL 32-36 [facility] No Panel InformationOrdered By: Adam Ferraro on 12-10-2022 Estimated GFR (MDRD) Amer 50 mL/min >60 [facility] Comment on above: GFR Calc Estimated GFR (MDRD) Non-Af Amer 41 mL/min >60 [facility] Comment on above: Non- GFR Calc [place] Level 0.50 mmol/L 0.60-1.20 [facility] Platelets bldOrdered By: Benoit Ferraor on 12-10-2022 Platelets (Bld) [#/Vol] 213 10*3/uL 150-450 [facility] Serum or plasma albumin you urement (mass/volume)Ordered By: Adam Ferraro on 12-10-2022 Albumin [Mass/Vol] 2.8 g/dL 3.2-5.0 [facility] Serum or plasma calcium you urement (mass/volume)Ordered By: Adam Ferraro on 12-10-2022 Calcium [Mass/Vol] 8.8 mg/dL 8.5-10.1 [facility] Serum or plasma creatinine m easurement (mass/volume)Ordered By: Adam Ferraro on 12-10-2022 Creatinine [Mass/Vol] 1.79 mg/dL 0.70-1.30 [facility] Comment on above: The validity of the calculated GFR & GFRAA in patients over 70 years has not been determined. Clinical correlation is essential. Serum or plasma urea nitroge n measurement (mass/volume)Ordered By: Adam Ferraro on 12-10-2022 Urea nitrogen [Mass/Vol] 18 mg/dL 7-18 [facility] [facility] Urine creatinine measurement (mass/volume)Ordered By: Adam Ferraro on 11-17-2022 Creatinine (U) [Mass/Vol] 74.70 mg/dL NO RANGE EST. [facility] Urine protein measurement (m ass/volume)Ordered By: Adam Ferraro on 11-17-2022 Protein (U) [Mass/Vol] 16.5 mg/dL 0.0-11.8 [facility] Urine protein/creatinine mas s ratioOrdered By: Adam Ferraro on 11-17-2022 Protein/Creatinine (U) [Mass ratio] 221 mg/g CRE 0-200 [facility] Absolute lymphocyte countOrd ered By: Alfredo Phipps on 11-12-2022 Lymphocytes Auto (Unsp spec) [#/Vol] 2.11 10*3/uL 0.83-4.51 [facility] Basophil percentageOrdered B y: Alfredo Phipps on 11-12-2022 Basophil percentage 3.3 mg/dL 2.5-4.9 [facility] Basophils/100 WBC (Bld) 0.7 % 0-1 [facility] Chloride [Moles/Vol] 106 mmol/L 98-107 [facility] Eosinophils/100 WBC (Bld) 2.4 % 0-5 [facility] Glucose [Mass/Vol] 169 mg/dL 74-106 [facility] Comment on above: Fasting Glucose resu lt greater than or equal to 126 mg/dL suggests DIABETES MELLITUS per A.D.A. criteria. Neutrophils (Bld) [#/Vol] 6.1 10*3/uL 2.0-7.7 [facility] Neutrophils/100 WBC (Bld) 63.5 % 47-70 [facility] Potassium [Moles/Vol] 3.5 mmol/L 3.5-5.1 [facility] Sodium [Moles/Vol] 138 mmol/L 136-145 [facility] WBC (Bld) [#/Vol] 9.6 10*3/uL 4.4-11.0 [facility] Blood erythrocytes count (nu mber/volume)Ordered By: Alfredo Phipps on 11-12-2022 RBC (Bld) [#/Vol] 4.67 10*6/uL 4.6-6.2 [facility] Blood hemoglobin measurement (mass/volume)Ordered By: Alfredo Phipps on 11-12-2022 Hemoglobin (Bld) [Mass/Vol] 13.9 g/dL 13.0-16.5 [facility] Blood lymphocytes/100 leukoc ytesOrdered By: Alfredo Phipps on 11-12-2022 Lymphocytes/100 WBC (Bld) 21.9 % 19-41 [facility] Blood monocytes/100 leukocyt esOrdered By: Alfredo Phipps on 11-12-2022 Monocytes/100 WBC (Bld) 10.8 % 0-10 [facility] Blood platelet mean volumeOr dered By: Alfredo Phipps on 11-12-2022 Platelet mean volume (Bld) [Entitic vol] 9.8 fL 6.2-12.0 [facility] Determination of erythrocyte mean corpuscular volume (MCV)Ordered By: Alfredo Phipps on 11-12-2022 MCV (RBC) [Entitic vol] 89.1 fL 80-94 [facility] Hematocrit Auto (Bld) [Volum e fraction]Ordered By: Alfredo Phipps on 11-12-2022 Hematocrit (Bld) [Volume fraction] 41.6 % 40-54 [facility] Laboratory - Chemistry and C hemistry - challengeOrdered By: Alfredo Phipps on 11-12-2022 CO2 [Moles/Vol] 25.0 mmol/L 21.0-32.0 [facility] Urea nitrogen/Creatinine [Mass ratio] 11.4 mg/mg 10-20 [facility] Laboratory - Hematology and Cell countsOrdered By: Alfredo Phipps on 11-12-2022 Erythrocyte distribution width (RBC) [Entitic vol] 43.2 fL 35.1-43.9 [facility] Erythrocyte distribution width (RBC) [Ratio] 13.2 % 11.6-14.6 [facility] Immature granulocytes/100 WBC (Bld) 0.700 % 0.0-0.9 [facility] Comment on above: IG% - Immature Granu locytes (promyelocytes, myelocytes and metamyelocytes) > 1% indicates that a LEFT SHIFT is Present. MCH (RBC) [Entitic mass] 29.8 pg 27.0-32.0 [facility] Nucleated RBC/100 WBC (Bld) [Ratio] 0 % 0-5 [facility] MCHC Auto (RBC) [Mass/Vol]Or dered By: Alfredo Phipps on 11-12-2022 MCHC (RBC) [Mass/Vol] 33.4 g/dL 32-36 [facility] No Panel InformationOrdered By: Alfredo Phipps on 11-12-2022 Estimated GFR (MDRD) Amer 48 mL/min >60 [facility] Comment on above: GFR Calc Estimated GFR (MDRD) Non-Af Amer 40 mL/min >60 [facility] Comment on above: Non- GFR Calc [place] Level 0.40 mmol/L 0.60-1.20 [facility] Platelets bldOrdered By: Jennifer Phipps on 11-12-2022 Platelets (Bld) [#/Vol] 200 10*3/uL 150-450 [facility] Serum or plasma albumin you urement (mass/volume)Ordered By: Alfredo Phipps on 11-12-2022 Albumin [Mass/Vol] 2.9 g/dL 3.2-5.0 [facility] Serum or plasma calcium you urement (mass/volume)Ordered By: Alfredo Phipps on 11-12-2022 Calcium [Mass/Vol] 8.7 mg/dL 8.5-10.1 [facility] Serum or plasma creatinine m easurement (mass/volume)Ordered By: Alfredo Phipps on 11-12-2022 Creatinine [Mass/Vol] 1.85 mg/dL 0.70-1.30 [facility] Comment on above: The validity of the calculated GFR & GFRAA in patients over 70 years has not been determined. Clinical correlation is essential. Serum or plasma urea nitroge n measurement (mass/volume)Ordered By: Alfredo Phipps on 11-12-2022 Urea nitrogen [Mass/Vol] 21 mg/dL 7-18 [facility] Serum or plasma uric acid me asurement (mass/volume)Ordered By: Alfredo Phipps on 10-27-2022 Urate [Mass/Vol] 6.4 mg/dL 3.5-7.2 [facility] Comment on above: The drugs N-Acetylcy steine and Metamizole may falsely depress this assay. Absolute lymphocyte countOrd ered By: Alfredo Phipps on 10-15-2022 Lymphocytes Auto (Unsp spec) [#/Vol] 2.30 10*3/uL 0.83-4.51 [facility] Basophil percentageOrdered B y: Alfredo Phipps on 10-15-2022 Basophil percentage 4.2 mg/dL 2.5-4.9 [facility] Basophils/100 WBC (Bld) 1.0 % 0-1 [facility] Chloride [Moles/Vol] 108 mmol/L 98-107 [facility] Eosinophils/100 WBC (Bld) 3.2 % 0-5 [facility] Glucose [Mass/Vol] 168 mg/dL 74-106 [facility] Comment on above: Fasting Glucose resu lt greater than or equal to 126 mg/dL suggests DIABETES MELLITUS per A.D.A. criteria. Neutrophils (Bld) [#/Vol] 4.8 10*3/uL 2.0-7.7 [facility] Neutrophils/100 WBC (Bld) 58.3 % 47-70 [facility] Potassium [Moles/Vol] 4.1 mmol/L 3.5-5.1 [facility] Comment on above: Slight Hemolysis, Re sult may be falsely increased. Sodium [Moles/Vol] 140 mmol/L 136-145 [facility] WBC (Bld) [#/Vol] 8.3 10*3/uL 4.4-11.0 [facility] Blood erythrocytes count (nu mber/volume)Ordered By: Alfredo Phipps on 10-15-2022 RBC (Bld) [#/Vol] 4.81 10*6/uL 4.6-6.2 [facility] Blood hemoglobin measurement (mass/volume)Ordered By: Alfredo Phipps on 10-15-2022 Hemoglobin (Bld) [Mass/Vol] 13.9 g/dL 13.0-16.5 [facility] Blood lymphocytes/100 leukoc ytesOrdered By: Alfredo Phipps on 10-15-2022 Lymphocytes/100 WBC (Bld) 27.6 % 19-41 [facility] Blood monocytes/100 leukocyt esOrdered By: Alfredo Phipps on 10-15-2022 Monocytes/100 WBC (Bld) 9.1 % 0-10 [facility] Blood platelet mean volumeOr dered By: Alfredo Phipps on 10-15-2022 Platelet mean volume (Bld) [Entitic vol] 10.1 fL 6.2-12.0 [facility] Determination of erythrocyte mean corpuscular volume (MCV)Ordered By: Alfredo Phipps on 10-15-2022 MCV (RBC) [Entitic vol] 89.4 fL 80-94 [facility] Hematocrit Auto (Bld) [Volum e fraction]Ordered By: Alfredo Phipps on 10-15-2022 Hematocrit (Bld) [Volume fraction] 43.0 % 40-54 [facility] Laboratory - Chemistry and C hemistry - challengeOrdered By: Alfredo Phipps on 10-15-2022 CO2 [Moles/Vol] 28.0 mmol/L 21.0-32.0 [facility] Urea nitrogen/Creatinine [Mass ratio] 11.3 mg/mg 10-20 [facility] Laboratory - Hematology and Cell countsOrdered By: Alfredo Phipps on 10-15-2022 Erythrocyte distribution width (RBC) [Entitic vol] 42.9 fL 35.1-43.9 [facility] Erythrocyte distribution width (RBC) [Ratio] 13.2 % 11.6-14.6 [facility] Immature granulocytes/100 WBC (Bld) 0.800 % 0.0-0.9 [facility] Comment on above: IG% - Immature Granu locytes (promyelocytes, myelocytes and metamyelocytes) > 1% indicates that a LEFT SHIFT is Present. MCH (RBC) [Entitic mass] 28.9 pg 27.0-32.0 [facility] Nucleated RBC/100 WBC (Bld) [Ratio] 0 % 0-5 [facility] Auto (RBC) [Mass/Vol]Or dered By: Alfredo Phipps on 10-15-2022 MCHC (RBC) [Mass/Vol] 32.3 g/dL 32-36 [facility] No Panel InformationOrdered By: Alfredo Phipps on 10-15-2022 Estimated GFR (MDRD) Amer 46 mL/min >60 [facility] Comment on above: GFR Calc Estimated GFR (MDRD) Non-Af Amer 38 mL/min >60 [facility] Comment on above: Non- GFR Calc [place] Level 0.50 mmol/L 0.60-1.20 [facility] Platelets bldOrdered By: Jennifer Phipps on 10-15-2022 Platelets (Bld) [#/Vol] 200 10*3/uL 150-450 [facility] Serum or plasma albumin you urement (mass/volume)Ordered By: Alfredo Phipps on 10-15-2022 Albumin [Mass/Vol] 2.9 g/dL 3.2-5.0 [facility] Serum or plasma calcium you urement (mass/volume)Ordered By: Alfredo Phipps on 10-15-2022 Calcium [Mass/Vol] 9.1 mg/dL 8.5-10.1 [facility] Serum or plasma creatinine m easurement (mass/volume)Ordered By: Alfredo Phipps on 10-15-2022 Creatinine [Mass/Vol] 1.94 mg/dL 0.70-1.30 [facility] Comment on above: The validity of the calculated GFR & GFRAA in patients over 70 years has not been determined. Clinical correlation is essential. Serum or plasma urea nitroge n measurement (mass/volume)Ordered By: Alfredo Phipps on 10-15-2022 Urea nitrogen [Mass/Vol] 22 mg/dL 7-18 [facility] Serum or plasma uric acid me asurement (mass/volume)Ordered By: Alfredo Phipps on 09-27-2022 Urate [Mass/Vol] 7.0 mg/dL 3.5-7.2 [facility] Comment on above: The drugs N-Acetylcy steine and Metamizole may falsely depress this assay. Absolute lymphocyte countOrd ered By: Adam Ferraro on 09-17-2022 Lymphocytes Auto (Unsp spec) [#/Vol] 2.69 10*3/uL 0.83-4.51 [facility] Basophil percentageOrdered B y: Adam Ferraro on 09-17-2022 Basophil percentage 3.8 mg/dL 2.5-4.9 [facility] Basophils/100 WBC (Bld) 0.9 % 0-1 [facility] Chloride [Moles/Vol] 105 mmol/L 98-107 [facility] Eosinophils/100 WBC (Bld) 3.2 % 0-5 [facility] Glucose [Mass/Vol] 141 mg/dL 74-106 [facility] Comment on above: Fasting Glucose resu lt greater than or equal to 126 mg/dL suggests DIABETES MELLITUS per A.D.A. criteria. Neutrophils (Bld) [#/Vol] 5.1 10*3/uL 2.0-7.7 [facility] Neutrophils/100 WBC (Bld) 56.1 % 47-70 [facility] Potassium [Moles/Vol] 3.8 mmol/L 3.5-5.1 [facility] Sodium [Moles/Vol] 139 mmol/L 136-145 [facility] WBC (Bld) [#/Vol] 9.0 10*3/uL 4.4-11.0 [facility] Blood erythrocytes count (nu mber/volume)Ordered By: Adma Ferraro on 09-17-2022 RBC (Bld) [#/Vol] 4.99 10*6/uL 4.6-6.2 [facility] Blood hemoglobin measurement (mass/volume)Ordered By: Adam Ferraro on 09-17-2022 Hemoglobin (Bld) [Mass/Vol] 14.8 g/dL 13.0-16.5 [facility] Blood lymphocytes/100 leukoc ytesOrdered By: Adam Ferraro on 09-17-2022 Lymphocytes/100 WBC (Bld) 29.8 % 19-41 [facility] Blood monocytes/100 leukocyt esOrdered By: Adam Ferraro on 09-17-2022 Monocytes/100 WBC (Bld) 9.4 % 0-10 [facility] Blood platelet mean volumeOr dered By: Adam Ferraro on 09-17-2022 Platelet mean volume (Bld) [Entitic vol] 10.2 fL 6.2-12.0 [facility] Determination of erythrocyte mean corpuscular volume (MCV)Ordered By: Adam Ferraro on 09-17-2022 MCV (RBC) [Entitic vol] 88.6 fL 80-94 [facility] Hematocrit Auto (Bld) [Volum e fraction]Ordered By: Adam Ferraro on 09-17-2022 Hematocrit (Bld) [Volume fraction] 44.2 % 40-54 [facility] Laboratory - Chemistry and C hemistry - challengeOrdered By: Adam Ferraro on 09-17-2022 CO2 [Moles/Vol] 26.0 mmol/L 21.0-32.0 [facility] Urea nitrogen/Creatinine [Mass ratio] 11.4 mg/mg 10-20 [facility] Laboratory - Hematology and Cell countsOrdered By: Adam Ferraro on 09-17-2022 Erythrocyte distribution width (RBC) [Entitic vol] 42.8 fL 35.1-43.9 [facility] Erythrocyte distribution width (RBC) [Ratio] 13.2 % 11.6-14.6 [facility] Immature granulocytes/100 WBC (Bld) 0.600 % 0.0-0.9 [facility] Comment on above: IG% - Immature Granu locytes (promyelocytes, myelocytes and metamyelocytes) > 1% indicates that a LEFT SHIFT is Present. MCH (RBC) [Entitic mass] 29.7 pg 27.0-32.0 [facility] Nucleated RBC/100 WBC (Bld) [Ratio] 0 % 0-5 [facility] MCHC Auto (RBC) [Mass/Vol]Or dered By: Adam Ferraro on 09-17-2022 MCHC (RBC) [Mass/Vol] 33.5 g/dL 32-36 [facility] No Panel InformationOrdered By: Adam Ferraro on 09-17-2022 [place] Level 0.50 mmol/L 0.60-1.20 [facility] Estimated GFR (MDRD) Amer 51 mL/min >60 [facility] Comment on above: GFR Calc Estimated GFR (MDRD) Non-Af Amer 42 mL/min >60 [facility] Comment on above: Non- GFR Calc Platelets bldOrdered By: Benoit loni Jasmine on 09-17-2022 Platelets (Bld) [#/Vol] 178 10*3/uL 150-450 [facility] Serum or plasma albumin you urement (mass/volume)Ordered By: Adam Ferraro on 09-17-2022 Albumin [Mass/Vol] 3.0 g/dL 3.2-5.0 [facility] Serum or plasma calcium you urement (mass/volume)Ordered By: Adam Ferraro on 09-17-2022 Calcium [Mass/Vol] 9.0 mg/dL 8.5-10.1 [facility] Serum or plasma creatinine m easurement (mass/volume)Ordered By: Adam Ferraro on 09-17-2022 Creatinine [Mass/Vol] 1.76 mg/dL 0.70-1.30 [facility] Comment on above: The validity of the calculated GFR & GFRAA in patients over 70 years has not been determined. Clinical correlation is essential. Serum or plasma urea nitroge n measurement (mass/volume)Ordered By: Adam Ferraro on 09-17-2022 Urea nitrogen [Mass/Vol] 20 mg/dL 7-18 [facility] Urine creatinine measurement (mass/volume)Ordered By: Adam Ferraro on 09-17-2022 Creatinine (U) [Mass/Vol] 128.00 mg/dL NO RANGE EST. [facility] Urine protein measurement (m ass/volume)Ordered By: Adam Ferraro on 09-17-2022 Protein (U) [Mass/Vol] 20.9 mg/dL 0.0-11.8 [facility] Urine protein/creatinine mas s ratioOrdered By: Adam Ferraro on 09-17-2022 Protein/Creatinine (U) [Mass ratio] 163 mg/g CRE 0-200 [facility] Serum or plasma uric acid me asurement (mass/volume)Ordered By: Adam Ferraro on 08-27-2022 Urate [Mass/Vol] 6.4 mg/dL 3.5-7.2 [facility] Comment on above: The drugs N-Acetylcy steine and Metamizole may falsely depress this assay. No Panel InformationOrdered By: Adam Ferraro on 08-23-2022 [place] Level 0.40 mmol/L 0.60-1.20 [facility] Culture, urineOrdered By: Chan Fiore on 08-15-2022 Bacteria identified Cx Nom (U) Streptococcus mitis [facility] Absolute lymphocyte countOrd ered By: Alfredo Phipps on 08-12-2022 Lymphocytes Auto (Unsp spec) [#/Vol] 2.09 10*3/uL 0.83-4.51 [facility] Basophil percentageOrdered B y: Alfredo Phipps on 08-12-2022 Basophil percentage 3.6 mg/dL 2.5-4.9 [facility] Basophils/100 WBC (Bld) 0.9 % 0-1 [facility] Chloride [Moles/Vol] 107 mmol/L 98-107 [facility] Eosinophils/100 WBC (Bld) 2.8 % 0-5 [facility] Glucose [Mass/Vol] 151 mg/dL 74-106 [facility] Comment on above: Fasting Glucose resu lt greater than or equal to 126 mg/dL suggests DIABETES MELLITUS per A.D.A. criteria. Neutrophils (Bld) [#/Vol] 5.5 10*3/uL 2.0-7.7 [facility] Neutrophils/100 WBC (Bld) 63.4 % 47-70 [facility] Potassium [Moles/Vol] 4.0 mmol/L 3.5-5.1 [facility] Sodium [Moles/Vol] 140 mmol/L 136-145 [facility] WBC (Bld) [#/Vol] 8.7 10*3/uL 4.4-11.0 [facility] Basophil percentage 10-25 SEEN /hpf 0-5 [facility] Bilirubin Test strip Ql (U)O rdered By: Alfredo Phipps on 08-12-2022 Bilirubin Ql (U) Negative Negative [facility] Blood erythrocytes count (nu mber/volume)Ordered By: Alfredo Phipps on 08-12-2022 RBC (Bld) [#/Vol] 4.92 10*6/uL 4.6-6.2 [facility] Blood hemoglobin measurement (mass/volume)Ordered By: Alfredo Phipps on 08-12-2022 Hemoglobin (Bld) [Mass/Vol] 14.5 g/dL 13.0-16.5 [facility] Blood lymphocytes/100 leukoc ytesOrdered By: Alfredo Phipps on 08-12-2022 Lymphocytes/100 WBC (Bld) 24.1 % 19-41 [facility] Blood monocytes/100 leukocyt esOrdered By: Alfredo Phipps on 08-12-2022 Monocytes/100 WBC (Bld) 8.3 % 0-10 [facility] Blood platelet mean volumeOr dered By: Alfredo Phipps on 08-12-2022 Platelet mean volume (Bld) [Entitic vol] 9.8 fL 6.2-12.0 [facility] Determination of erythrocyte mean corpuscular volume (MCV)Ordered By: Alfredo Phipps on 08-12-2022 MCV (RBC) [Entitic vol] 91.1 fL 80-94 [facility] Hematocrit Auto (Bld) [Volum e fraction]Ordered By: Alfredo Phipps on 08-12-2022 Hematocrit (Bld) [Volume fraction] 44.8 % 40-54 [facility] Ketones Test strip Ql (U)Ord ered By: Alfredo Phipps on 08-12-2022 Ketones Ql (U) Negative Negative [facility] Laboratory - Chemistry and C hemistry - challengeOrdered By: Alfredo Phipps on 08-12-2022 CO2 [Moles/Vol] 25.0 mmol/L 21.0-32.0 [facility] Urea nitrogen/Creatinine [Mass ratio] 14.9 mg/mg 10-20 [facility] Laboratory - Hematology and Cell countsOrdered By: Alfredo Phipps on 08-12-2022 Erythrocyte distribution width (RBC) [Entitic vol] 43.3 fL 35.1-43.9 [facility] Erythrocyte distribution width (RBC) [Ratio] 12.9 % 11.6-14.6 [facility] Immature granulocytes/100 WBC (Bld) 0.500 % 0.0-0.9 [facility] Comment on above: IG% - Immature Granu locytes (promyelocytes, myelocytes and metamyelocytes) > 1% indicates that a LEFT SHIFT is Present. MCH (RBC) [Entitic mass] 29.5 pg 27.0-32.0 [facility] Nucleated RBC/100 [facility] (Bld) [Ratio] 0 % 0[facility] ([facility]) [Mass/Vol]Or dered By: Alfredo Phipps on 08-12-2022 MCHC (RBC) [Mass/Vol] 32.4 g/dL 32-36 [facility] Mucus LM Ql (Urine sed)Order ed By: Alfredo Phipps on 08-12-2022 Mucus Ql (Urine sed) Not Reportable [facility] Nitrite Test strip Ql (U)Ord ered By: Alfredo Phipps on 08-12-2022 Nitrite Ql (U) Negative Negative [facility] No Panel InformationOrdered By: Alfredo Phipps on 08-12-2022 Estimated GFR (MDRD) Amer 54 mL/min >60 [facility] Comment on above: GFR Calc Estimated GFR (MDRD) Non-Af Amer 45 mL/min >60 [facility] Comment on above: Non- GFR Calc Platelets bldOrdered By: Pet shonda Phipps on 08-12-2022 Platelets (Bld) [#/Vol] 238 10*3/uL 150-450 [facility] Protein Test strip Ql (U)Ord ered By: Alfredo Phipps on 08-12-2022 Protein Ql (U) 15 mg/dl Negative [facility] Serum or plasma albumin you urement (mass/volume)Ordered By: Alfredo Phipps on 08-12-2022 Albumin [Mass/Vol] 2.9 g/dL 3.2-5.0 [facility] Serum or plasma calcium you urement (mass/volume)Ordered By: Alfredo Phipps on 08-12-2022 Calcium [Mass/Vol] 9.2 mg/dL 8.5-10.1 [facility] Serum or plasma creatinine m easurement (mass/volume)Ordered By: Alfredo Phipps on 08-12-2022 Creatinine [Mass/Vol] 1.68 mg/dL 0.70-1.30 [facility] Comment on above: The validity of the calculated GFR & GFRAA in patients over 70 years has not been determined. Clinical correlation is essential. Serum or plasma urea nitroge n measurement (mass/volume)Ordered By: Alfredo Phipps on 08-12-2022 Urea nitrogen [Mass/Vol] 25 mg/dL 7-18 [facility] Squamous epithelial cells de tection in urine sediment by light microscopyOrdered By: Alfredo Phipps on 08-12-2022 Epithelial cells.squamous LM Ql (Urine sed) 0-5 SEEN /hpf 0-5 [facility] Urine blood detectionOrdered By: Alfredo Phipps on 08-12-2022 RBC Ql (U) Negative Negative [facility] RBC Ql (U) 0 SEEN /hpf 0-5 [facility] Urine clarityOrdered By: Jennifer Phipps on 08-12-2022 Clarity (U) Clear Clear [facility] Urine color determinationOrd ered By: Alfredo Phipps on 08-12-2022 Color (U) Yellow Yellow [facility] Urine creatinine measurement (mass/volume)Ordered By: Alfredo Phipps on 08-12-2022 Creatinine (U) [Mass/Vol] 102.00 mg/dL NO RANGE EST. [facility] Urine glucose detectionOrder ed By: Alfredo Phipps on 08-12-2022 Glucose Ql (U) Normal mg/dl Normal [facility] Urine leukocyte esterase det ection by dipstickOrdered By: Alfredo Phipps on 08-12-2022 Leukocyte esterase Test strip Ql (U) 500 /ul Negative [facility] Urine pHOrdered By: Alfredo saha on 08-12-2022 pH (U) 6.0 [pH] 5.0 - 8.0 [facility] Urine protein measurement (m ass/volume)Ordered By: Alfredo Phipps on 08-12-2022 Protein (U) [Mass/Vol] 19.9 mg/dL 0.0-11.8 [facility] Urine protein/creatinine mas s ratioOrdered By: Alfredo Phipps on 08-12-2022 Protein/Creatinine (U) [Mass ratio] 195 mg/g CRE 0-200 [facility] Urine sediment bacteria coun t by microscopy (number/high power field)Ordered By: Alfredo Phipps on 08-12-2022 Bacteria LM.HPF (Urine sed) [#/Area] RARE /hpf None [facility]en [facility] [facility] U[facility] specific gravity measu rementOrdered By: Alfredo Phipps on 08-12-2022 Specific gravity (U) [Rel density] 1.015 1.002-1.030 [facility] Urobilinogen Auto test strip Ql (U)Ordered By: Alfredo Phipps on 08-12-2022 Urobilinogen Ql (U) Normal mg/dl Normal [facility] No Panel Informationon 07-28 [place] Level 0.60 mmol/L 0.60-1.20 [facility] Work Phone: Serum or plasma uric acid me asurement (mass/volume)on 07-28-2022 Urate [Mass/Vol] 6.3 mg/dL 3.5-7.2 [facility] Work Phone: Comment on above: The drugs N-Acetylcy steine and Metamizole may falsely depress this assay. URINALYSIS, REFLEX MICROSCOP ICon 07-27-2022 Bilirubin Ql (U) Negative Negative [facility] Clarity (Unsp spec) Clear Clear [facility] Color (U) Colorless Yellow [facility] Glucose Test strip (U) [Mass/Vol] Negative Negative [facility] Hemoglobin Ql (U) Negative Negative [facility] Ketones Ql (U) Negative Negative [facility] Leukocyte esterase Test strip Ql (U) Negative Negative [facility] Nitrite Ql (U) Negative Negative [facility] pH (U) 6.5 [pH] 5.0 - 8.0 [facility] Protein (U) [Mass/Vol] Negative Negative [facility] Specific gravity (U) [Rel density] 1.009 1.005 - 1.030 [facility] Urobilinogen Ql (U) Negative Negative [facility] Absolute lymphocyte counton 07-15-2022 Lymphocytes Auto (Unsp spec) [#/Vol] 1.93 10*3/uL 0.83-4.51 [facility] Work Phone: Basophil percentageon 2021 Basophil percentage 3.9 mg/dL 2.5-4.9 [facility] Work Phone: Basophils/100 WBC (Bld) 1.3 % 0-1 [facility] Work Phone: Chloride [Moles/Vol] 107 mmol/L 98-107 [facility] Work Phone: Eosinophils/100 WBC (Bld) 1.7 % 0-5 [facility] Work Phone: Glucose [Mass/Vol] 126 mg/dL 74-106 [facility] Work Phone: Comment on above: Fasting Glucose resu lt greater than or equal to 126 mg/dL suggests DIABETES MELLITUS per A.D.A. criteria. Neutrophils (Bld) [#/Vol] 6.1 10*3/uL 2.0-7.7 [facility] Work Phone: Neutrophils/100 WBC (Bld) 66.5 % 47-70 [facility] Work Phone: Potassium [Moles/Vol] 4.4 mmol/L 3.5-5.1 [facility] Work Phone: Sodium [Moles/Vol] 139 mmol/L 136-145 [facility] Work Phone: WBC (Bld) [#/Vol] 9.2 10*3/uL 4.4-11.0 [facility] Work Phone: Bilirubin Test strip Ql (U)o n 07-15-2022 Bilirubin Ql (U) Negative Negative [facility] Work Phone: Blood erythrocytes count (nu mber/volume)on 07-15-2022 RBC (Bld) [#/Vol] 5.01 10*6/uL 4.6-6.2 [facility] Work Phone: Blood hemoglobin measurement (mass/volume)on 07-15-2022 Hemoglobin (Bld) [Mass/Vol] 14.8 g/dL 13.0-16.5 [facility] Work Phone: Blood lymphocytes/100 leukoc yteson 07-15-2022 Lymphocytes/100 WBC (Bld) 20.9 % 19-41 [facility] Work Phone: Blood monocytes/100 leukocyt eson 07-15-2022 Monocytes/100 WBC (Bld) 8.9 % 0-10 [facility] Work Phone: Blood platelet mean volumeon 07-15-2022 Platelet mean volume (Bld) [Entitic vol] 9.7 fL 6.2-12.0 [facility] Work Phone: Determination of erythrocyte mean corpuscular volume (MCV)on 07-15-2022 MCV (RBC) [Entitic vol] 91.8 fL 80-94 [facility] Work Phone: Hematocrit Auto (Bld) [Volum e fraction]on 07-15-2022 Hematocrit (Bld) [Volume fraction] 46.0 % 40-54 [facility] Work Phone: Ketones Test strip Ql (U)on 07-15-2022 Ketones Ql (U) Negative Negative [facility] Work Phone: Laboratory - Chemistry and C hemistry - challengeon 07-15-2022 CO2 [Moles/Vol] 25.0 mmol/L 21.0-32.0 [facility] Work Phone: Urea nitrogen/Creatinine [Mass ratio] 14.9 mg/mg 10-20 [facility] Work Phone: Laboratory - Hematology and Cell countson 07-15-2022 Erythrocyte distribution width (RBC) [Entitic vol] 44.0 fL 35.1-43.9 [facility] Work Phone: Erythrocyte distribution width (RBC) [Ratio] 13.1 % 11.6-14.6 [facility] Work Phone: Immature granulocytes/100 WBC (Bld) 0.700 % 0.0-0.9 [facility] Work Phone: Comment on above: IG% - Immature Granu locytes (promyelocytes, myelocytes and metamyelocytes) > 1% indicates that a LEFT SHIFT is Present. MCH (RBC) [Entitic mass] 29.5 pg 27.0-32.0 [facility] Work Phone: Nucleated RBC/100 WBC (Bld) [Ratio] 0 % 0-5 [facility] Work Phone: MCHC Auto (RBC) [Mass/Vol]on 07-15-2022 MCHC (RBC) [Mass/Vol] 32.2 g/dL 32-36 [facility] Work Phone: Nitrite Test strip Ql (U)on 07-15-2022 Nitrite Ql (U) Negative Negative [facility] Work Phone: No Panel Informationon 07-15 Estimated GFR (MDRD) Amer 54 mL/min >60 [facility] Work Phone: Comment on above: GFR Calc Estimated GFR (MDRD) Non-Af Amer 45 mL/min >60 [facility] Work Phone: Comment on above: Non- GFR Calc Platelets bldon 07-15-2022 Platelets (Bld) [#/Vol] 231 10*3/uL 150-450 [facility] Work Phone: Protein Test strip Ql (U)on 07-15-2022 Protein Ql (U) 30 mg/dl Negative [facility] Work Phone: Serum or plasma albumin you urement (mass/volume)on 07-15-2022 Albumin [Mass/Vol] 3.1 g/dL 3.2-5.0 [facility] Work Phone: Serum or plasma calcium you urement (mass/volume)on 07-15-2022 Calcium [Mass/Vol] 8.6 mg/dL 8.5-10.1 [facility] Work Phone: Serum or plasma creatinine m easurement (mass/volume)on 07-15-2022 Creatinine [Mass/Vol] 1.68 mg/dL 0.70-1.30 [facility] Work Phone: Comment on above: The validity of the calculated GFR & GFRAA in patients over 70 years has not been determined. Clinical correlation is essential. Serum or plasma urea nitroge n measurement (mass/volume)on 07-15-2022 Urea nitrogen [Mass/Vol] 25 mg/dL 7-18 [facility] Work Phone: Urine blood detectionon 09-0 RBC Ql (U) Negative Negative [facility] Work Phone: Urine clarityon 07-15-2022 Clarity (U) Sl. Cloudy Clear [facility] Work Phone: Urine color determinationon 07-15-2022 Color (U) Yellow Yellow [facility] Work Phone: Urine creatinine measurement (mass/volume)on 07-15-2022 Creatinine (U) [Mass/Vol] 114.00 mg/dL NO RANGE EST. [facility] Work Phone: Urine glucose detectionon Glucose Ql (U) Normal mg/dl Normal [facility] Work Phone: Urine leukocyte esterase det ection by dipstickon 07-15-2022 Leukocyte esterase Test strip Ql (U) 100 /ul Negative [facility] Work Phone: Urine pHon 07-15-2022 pH (U) 6.0 [pH] 5.0 - 8.0 [facility] Work Phone: Urine protein measurement (m ass/volume)on 07-15-2022 Protein (U) [Mass/Vol] 26.5 mg/dL 0.0-11.8 [facility] Work Phone: Urine protein/creatinine mas s ratioon 07-15-2022 Protein/Creatinine (U) [Mass ratio] 232 mg/g CRE 0-200 [facility] Work Phone: Urine specific gravity measu rementon 07-15-2022 Specific gravity (U) [Rel density] 1.015 1.002-1.030 [facility] Work Phone: Urobilinogen Auto test strip Ql (U)on 07-15-2022 Urobilinogen Ql (U) Normal mg/dl Normal [facility] Work Phone: Basophil percentageon 2021 Cholesterol [Mass/Vol] 149 mg/dL <200 [facility] Work Phone: Comment on above: <200 mg/dL Desirable 200-240 mg/dL Borderline >240 mg/dL High Risk Triglyceride [Mass/Vol] 379 mg/dL <199 [facility] Work Phone: Comment on above: The drugs N-Acetylcy steine and Metamizole may falsely depress this assay.Serum Triglycerides Reference Interval Normal <150 mg/dL Borderline high 150 - 199 mg/dL High 200 - 499 mg/dL Very High > or = 500 mg/dL No Panel Informationon 06-28 [place] Level 0.40 mmol/L 0.60-1.20 [facility] Work Phone: Serum or plasma cholesterol in HDL measurement (mass/volume)on 06-28-2022 Cholesterol in HDL [Mass/Vol] 34 mg/dL >40 [facility] Work Phone: Comment on above: The drugs N-Acetylcy steine and Metamizole may falsely depress this assay. Reference Range HDL <40 mg/dL Low HDL Cholesterol HDL >or= 60 mg/dL High HDL Cholesterol Serum or plasma cholesterol in VLDL measurement (mass/volume)on 06-28-2022 Cholesterol in VLDL [Mass/Vol] 76 mg/dL 5-40 [facility] Work Phone: Serum or plasma low density lipoprotein (LDL) cholesterol measurement (mass/volume)on 06-28-2022 Cholesterol in LDL [Mass/Vol] 39 mg/dL 0-130 [facility] Work Phone: Serum or plasma uric acid me asurement (mass/volume)on 06-28-2022 Urate [Mass/Vol] 5.9 mg/dL 3.5-7.2 [facility] Work Phone: Comment on above: The drugs N-Acetylcy steine and Metamizole may falsely depress this assay. Absolute lymphocyte counton 06-17-2022 Lymphocytes Auto (Unsp spec) [#/Vol] 2.02 10*3/uL 0.83-4.51 [facility] Work Phone: Basophil percentageon 2021 Basophil percentage 0-5 SEEN /hpf 0-5 [facility] Work Phone: Basophil percentage 3.8 mg/dL 2.5-4.9 [facility] Work Phone: Basophils/100 WBC (Bld) 0.8 % 0-1 [facility] Work Phone: Chloride [Moles/Vol] 108 mmol/L 98-[address] [facility] Work Phone: Eosinophils/100 WBC (Bld) 2.9 % 0-5 [facility] Work Phone: Glucose [Mass/Vol] 133 mg/dL 74-106 [facility] Work [facility]: Comment on above: Fasting Glucose resu lt greater than or equal to 126 mg/dL suggests DIABETES MELLITUS per A.D.A. criteria. Neutrophils (Bld) [#/Vol] 5.3 10*3/uL 2.0-7.7 [facility] Work Phone: Neutrophils/100 WBC (Bld) 61.6 % 47-70 [facility] Work Phone: Potassium [Moles/Vol] 3.8 mmol/L 3.5-5.[address] [facility] Work Phone: Sodium [Moles/Vol] 140 mmol/L 136-145 [facility] Work Phone: WBC (Bld) [#/Vol] 8.6 10*3/uL 4.4-11.0 [facility] Work Phone: Bilirubin Test strip Ql (U)o n 06-17-2022 Bilirubin Ql (U) Negative Negative [facility] Work Phone: Blood erythrocytes count (nu mber/volume)on 06-17-2022 RBC (Bld) [#/Vol] 4.46 10*6/uL 4.6-6.2 [facility] Work [facility]: Blood hemoglobin measurement (mass/volume)on 06-17-2022 Hemoglobin (Bld) [Mass/Vol] 13.4 g/dL 13.0-16.5 [facility] Work Phone: Blood lymphocytes/100 leukoc yteson 06-17-2022 Lymphocytes/100 WBC (Bld) 23.5 % 19-41 [facility] Work Phone: Blood monocytes/100 leukocyt eson 06-17-2022 Monocytes/100 WBC (Bld) 10.0 % 0-10 [facility] Work Phone: Blood platelet mean volumeon 06-17-2022 Platelet mean volume (Bld) [Entitic vol] 9.6 fL 6.2-12.0 [facility] Work Phone: Determination of erythrocyte mean corpuscular volume (MCV)on 06-17-2022 MCV (RBC) [Entitic vol] 91.3 fL 80-94 [facility] Work Phone: Hematocrit Auto (Bld) [Volum e fraction]on 06-17-2022 Hematocrit (Bld) [Volume fraction] 40.7 % 40-54 [facility] Work Phone: Ketones Test strip Ql (U)on 06-17-2022 Ketones Ql (U) Negative Negative [facility] Work Phone: Laboratory - Chemistry and C hemistry - challengeon 06-17-2022 CO2 [Moles/Vol] 25.0 mmol/L 21.0-32.0 [facility] Work Phone: Urea nitrogen/Creatinine [Mass ratio] 12.6 mg/mg 10-20 [facility] Work Phone: Laboratory - Hematology and Cell countson 06-17-2022 Erythrocyte distribution width (RBC) [Entitic vol] 45.5 fL 35.1-43.9 [facility] Work Phone: Erythrocyte distribution width (RBC) [Ratio] 13.4 % 11.6-14.6 [facility] Work Phone: Immature granulocytes/100 WBC (Bld) 1.200 % 0.0-0.9 [facility] Work Phone: Comment on above: IG% - Immature Granu locytes (promyelocytes, myelocytes and metamyelocytes) > 1% indicates that a LEFT SHIFT is Present. MCH (RBC) [Entitic mass] 30.0 pg 27.0-32.0 [facility] Work Phone: Nucleated RBC/100 WBC (Bld) [Ratio] 0 % 0-5 [facility] Work Phone: MCHC Auto (RBC) [Mass/Vol]on 06-17-2022 MCHC (RBC) [Mass/Vol] 32.9 g/dL 32-36 [facility] Work Phone: Mucus LM Ql (Urine sed)on Mucus Ql (Urine sed) 0 SEEN /hpf [facility] Work Phone: Nitrite Test strip Ql (U)on 06-17-2022 Nitrite Ql (U) Negative Negative [facility] Work Phone: No Panel Informationon 06-17 Estimated GFR (MDRD) Amer 58 mL/min >60 [facility] Work Phone: Comment on above: GFR Calc Estimated GFR (MDRD) Non-Af Amer 48 mL/min >60 [facility] Work Phone: Comment on above: Non- GFR Calc Platelets bldon 06-17-2022 Platelets (Bld) [#/Vol] 178 10*3/uL 150-450 [facility] Work Phone: Protein Test strip Ql (U)on 06-17-2022 Protein Ql (U) 15 mg/dl Negative [facility] Work Phone: Serum or plasma albumin you urement (mass/volume)on 06-17-2022 Albumin [Mass/Vol] 2.8 g/dL 3.2-5.0 [facility] Work Phone: Serum or plasma calcium you urement (mass/volume)on 06-17-2022 Calcium [Mass/Vol] 8.6 mg/dL 8.5-10.1 [facility] Work Phone: Serum or plasma creatinine m easurement (mass/volume)on 06-17-2022 Creatinine [Mass/Vol] 1.59 mg/dL 0.70-1.30 [facility] Work Phone: Comment on above: The validity of the calculated GFR & GFRAA in patients over 70 years has not been determined. Clinical correlation is essential. Serum or plasma urea nitroge n measurement (mass/volume)on 06-17-2022 Urea nitrogen [Mass/Vol] 20 mg/dL 7-18 [facility] Work Phone: Squamous epithelial cells de tection in urine sediment by light microscopyon 06-17-2022 Epithelial cells.squamous LM Ql (Urine sed) 0-5 SEEN /hpf 0-5 [facility] Work Phone: Urine blood detectionon RBC Ql (U) Negative Negative [facility] Work Phone: RBC Ql (U) 0 SEEN /hpf 0-5 [facility] Work Phone: Urine clarityon 06-17-2022 Clarity (U) Clear Clear [facility] Work Phone: Urine color determinationon 06-17-2022 Color (U) Yellow Yellow [facility] Work Phone: Urine creatinine measurement (mass/volume)on 06-17-2022 Creatinine (U) [Mass/Vol] 118.00 mg/dL NO RANGE EST. [facility] Work Phone: Urine glucose detectionon Glucose Ql (U) Normal mg/dl Normal [facility] Work Phone: Urine leukocyte esterase det ection by dipstickon 06-17-2022 Leukocyte esterase Test strip Ql (U) 100 /ul Negative [facility] Work Phone: Urine pHon 06-17-2022 pH (U) 6.0 [pH] 5.0 - 8.0 [facility] Work Phone: Urine protein measurement (m ass/volume)on 06-17-2022 Protein (U) [Mass/Vol] 22.0 mg/dL 0.0-11.8 [facility] Work Phone: Urine protein/creatinine mas s ratioon 06-17-2022 Protein/Creatinine (U) [Mass ratio] 186 mg/g CRE 0-200 [facility] Work Phone: Urine sediment bacteria coun t by microscopy (number/high power field)on 06-17-2022 Bacteria LM.HPF (Urine sed) [#/Area] 0 /[HPF] None Seen [facility] Work Phone: Urine specific gravity measu rementon 06-17-2022 Specific gravity (U) [Rel density] 1.015 1.002-1.030 [facility] Work Phone: Urobilinogen Auto test strip Ql (U)on 06-17-2022 Urobilinogen Ql (U) Normal mg/dl [facility] Work [facility]: No Panel Informationon 05-27 [place] Level 0.40 mmol/L 0.60-1.20 [facility] Work Phone: Serum or plasma uric acid me asurement (mass/volume)on 05-27-2022 Urate [Mass/Vol] 6.1 mg/dL 3.5-7.2 [facility] Work Phone: Comment on above: The drugs N-Acetylcy steine and Metamizole may falsely depress this assay. Absolute lymphocyte counton 05-20-2022 Lymphocytes Auto (Unsp spec) [#/Vol] 2.07 10*3/uL 0.83-4.51 [facility] Work Phone: Basophil percentageon 2021 Basophil percentage 3.2 mg/dL 2.5-4.9 [facility] Work Phone: Basophils/100 WBC (Bld) 0.7 % 0-1 [facility] Work Phone: Chloride [Moles/Vol] 108 mmol/L 98-107 [facility] Work Phone: Eosinophils/100 WBC (Bld) 2.5 % 0-5 [facility] Work Phone: Glucose [Mass/Vol] 149 mg/dL 74-106 [facility] Work Phone: Comment on above: Fasting Glucose resu lt greater than or equal to 126 mg/dL suggests DIABETES MELLITUS per A.D.A. criteria. Neutrophils (Bld) [#/Vol] 6.4 10*3/uL 2.0-7.7 [facility] Work Phone: Neutrophils/100 WBC (Bld) 65.6 % 47-70 [facility] Work Phone: Potassium [Moles/Vol] 3.9 mmol/L 3.5-5.1 [facility] Work Phone: Sodium [Moles/Vol] 140 mmol/L 136-145 [facility] Work Phone: WBC (Bld) [#/Vol] 9.7 10*3/uL 4.4-11.0 [facility] Work Phone: Basophil percentage 0-5 SEEN /hpf 0-5 [facility] Work Phone: Bilirubin Test strip Ql (U)o n 05-20-2022 Bilirubin Ql (U) Negative Negative [facility] Work Phone: [phone] Blood erythrocytes count (nu mber/volume)on 05-20-2022 RBC (Bld) [#/Vol] 4.36 10*6/uL 4.6-6.2 [facility] Work Phone: Blood hemoglobin measurement (mass/volume)on 05-20-2022 Hemoglobin (Bld) [Mass/Vol] 12.9 g/dL 13.0-16.5 [facility] Work Phone: Blood lymphocytes/100 leukoc yteson 05-20-2022 Lymphocytes/100 WBC (Bld) 21.4 % 19-41 [facility] Work Phone: Blood monocytes/100 leukocyt eson 05-20-2022 Monocytes/100 WBC (Bld) 9.3 % 0-10 [facility] Work Phone: [phone] Blood platelet mean volumeon 05-20-2022 Platelet mean volume (Bld) [Entitic vol] 9.6 fL 6.2-12.0 [facility] Work Phone: Determination of erythrocyte mean corpuscular volume (MCV)on 05-20-2022 MCV (RBC) [Entitic vol] 91.5 fL 80-94 [facility] Work Phone: Hematocrit Auto (Bld) [Volum e fraction]on 05-20-2022 Hematocrit (Bld) [Volume fraction] 39.9 % 40-54 [facility] Work Phone: Ketones Test strip Ql (U)on 05-20-2022 Ketones Ql (U) Negative Negative [facility] Work Phone: Laboratory - Chemistry and C hemistry - challengeon 05-20-2022 CO2 [Moles/Vol] 26.0 mmol/L 21.0-32.0 [facility] Work Phone: Urea nitrogen/Creatinine [Mass ratio] 9.9 mg/mg 10-20 [facility] Work Phone: Laboratory - Hematology and Cell countson 05-20-2022 Erythrocyte distribution width (RBC) [Entitic vol] 45.7 fL 35.1-43.9 [facility] Work Phone: [phone] Erythrocyte distribution width (RBC) [Ratio] 13.6 % 11.6-14.6 [facility] Work Phone: Immature granulocytes/100 WBC (Bld) 0.500 % 0.0-0.9 [facility] Work Phone: Comment on above: IG% - Immature Granu locytes (promyelocytes, myelocytes and metamyelocytes) > 1% indicates that a LEFT SHIFT is Present. MCH (RBC) [Entitic mass] 29.6 pg 27.0-32.0 [facility] Work Phone: Nucleated RBC/100 WBC (Bld) [Ratio] 0 % 0-5 [facility] Work Phone: MCHC Auto (RBC) [Mass/Vol]on 05-20-2022 MCHC (RBC) [Mass/Vol] 32.3 g/dL 32-36 [facility] Work Phone: Mucus LM Ql (Urine sed)on Mucus Ql (Urine sed) 0 SEEN /hpf [facility] Work Phone: Nitrite Test strip Ql (U)on 05-20-2022 Nitrite Ql (U) Negative Negative [facility] Work Phone: No Panel Informationon 05-20 Estimated GFR (MDRD) Amer 53 mL/min >60 [facility] Work Phone: Comment on above: GFR Calc Estimated GFR (MDRD) Non-Af Amer 44 mL/min >60 [facility] Work Phone: Comment on above: Non- GFR Calc Platelets bldon 05-20-2022 Platelets (Bld) [#/Vol] 197 10*3/uL 150-450 [facility] Work Phone: Protein Test strip Ql (U)on 05-20-2022 Protein Ql (U) Negative Negative [facility] Work Phone: Serum or plasma albumin you urement (mass/volume)on 05-20-2022 Albumin [Mass/Vol] 2.7 g/dL 3.2-5.0 [facility] Work Phone: Serum or plasma calcium you urement (mass/volume)on 05-20-2022 Calcium [Mass/Vol] 9.0 mg/dL 8.5-10.1 [facility] Work Phone: Serum or plasma creatinine m easurement (mass/volume)on 05-20-2022 Creatinine [Mass/Vol] 1.71 mg/dL 0.70-1.30 [facility] Work Phone: Comment on above: The validity of the calculated GFR & GFRAA in patients over 70 years has not been determined. Clinical correlation is essential. Serum or plasma urea nitroge n measurement (mass/volume)on 05-20-2022 Urea nitrogen [Mass/Vol] 17 mg/dL 7-18 [facility] Work Phone: Squamous epithelial cells de tection in urine sediment by light microscopyon 05-20-2022 Epithelial cells.squamous LM Ql (Urine sed) 0-5 SEEN /hpf 0-5 [facility] Work Phone: Urine blood detectionon RBC Ql (U) Negative Negative [facility] Work Phone: RBC Ql (U) 0 SEEN /hpf 0-5 [facility] Work Phone: Urine clarityon 05-20-2022 Clarity (U) Clear Clear [facility] Work Phone: Urine color determinationon 05-20-2022 Color (U) Yellow Yellow [facility] Work Phone: Urine creatinine measurement (mass/volume)on 05-20-2022 Creatinine (U) [Mass/Vol] 107.00 mg/dL NO RANGE EST. [facility] Work Phone: Urine glucose detectionon Glucose Ql (U) Normal mg/dl Normal [facility] Work Phone: Urine leukocyte esterase det ection by dipstickon 05-20-2022 Leukocyte esterase Test strip Ql (U) 25 /ul Negative [facility] Work Phone: Urine pHon 05-20-2022 pH (U) 6.5 [pH] 5.0 - 8.0 [facility] Work Phone: Urine protein measurement (m ass/volume)on 05-20-2022 Protein (U) [Mass/Vol] 17.3 mg/dL 0.0-11.8 [facility] Work Phone: Urine protein/creatinine mas s ratioon 05-20-2022 Protein/Creatinine (U) [Mass ratio] 162 mg/g CRE 0-200 [facility] Work Phone: Urine sediment bacteria coun t by microscopy (number/high power field)on 05-20-2022 Bacteria LM.HPF (Urine sed) [#/Area] 0 /[HPF] None Seen [facility] Work Phone: Urine specific gravity measu rementon 05-20-2022 Specific gravity (U) [Rel density] 1.010 1.002-1.030 [facility] Work Phone: [phone] Urobilinogen Auto test strip Ql (U)on 05-20-2022 Urobilinogen Ql (U) Normal mg/dl Normal [facility] Work Phone: No Panel Informationon 05-05 [facility] Absolute lymphocyte counton 04-27-2022 Lymphocytes Auto (Unsp spec) [#/Vol] 2.36 10*3/uL 0.83-4.51 [facility] Work Phone: Basophil percentageon 2021 Basophil percentage 4.6 mg/dL 2.5-4.9 [facility] Work Phone: Basophils/100 WBC (Bld) 0.3 % 0-1 [facility] Work Phone: Chloride [Moles/Vol] 104 mmol/L 98-107 [facility] Work Phone: [phone] Eosinophils/100 WBC (Bld) 0.1 % 0-5 [facility] Work Phone: Glucose [Mass/Vol] 190 mg/dL 74-106 [facility] Work Phone: Comment on above: Fasting Glucose resu lt greater than or equal to 126 mg/dL suggests DIABETES MELLITUS per A.D.A. criteria. Neutrophils (Bld) [#/Vol] 10.5 10*3/uL 2.0-7.7 [facility] Work Phone: [phone] Neutrophils/100 WBC (Bld) 72.0 % 47-70 [facility] Work Phone: Potassium [Moles/Vol] 3.8 mmol/L 3.5-5.1 [place] [facility] Work Phone: Sodium [Moles/Vol] 140 mmol/L 136-145 [facility] Work Phone: WBC (Bld) [#/Vol] 14.5 10*3/uL 4.4-11.0 [facility] Work Phone: Blood erythrocytes count (nu mber/volume)on 04-27-2022 RBC (Bld) [#/Vol] 4.56 10*6/uL 4.6-6.2 [facility] Work Phone: Blood hemoglobin measurement (mass/volume)on 04-27-2022 Hemoglobin (Bld) [Mass/Vol] 13.4 g/dL 13.0-16.5 [facility] Work Phone: Blood lymphocytes/100 leukoc yteson 04-27-2022 Lymphocytes/100 WBC (Bld) 16.3 % 19-41 [facility] Work Phone: Blood monocytes/100 leukocyt eson 04-27-2022 Monocytes/100 WBC (Bld) 7.6 % 0-10 [facility] Work Phone: Blood platelet mean volumeon 04-27-2022 Platelet mean volume (Bld) [Entitic vol] 9.2 fL 6.2-12.0 [facility] Work Phone: Determination of erythrocyte mean corpuscular volume (MCV)on 04-27-2022 MCV (RBC) [Entitic vol] 91.0 fL 80-94 [facility] Work Phone: Hematocrit Auto (Bld) [Volum e fraction]on 04-27-2022 Hematocrit (Bld) [Volume fraction] 41.5 % 40-54 [facility] Work Phone: Laboratory - Chemistry and C hemistry - challengeon 04-27-2022 CO2 [Moles/Vol] 28.0 mmol/L 21.0-32.0 [facility] Work Phone: Urea nitrogen/Creatinine [Mass ratio] 13.4 mg/mg 10-20 [facility] Work Phone: Laboratory - Hematology and Cell countson 04-27-2022 Erythrocyte distribution width (RBC) [Entitic vol] 45.7 fL 35.1-43.9 [facility] Work Phone: Erythrocyte distribution width (RBC) [Ratio] 13.7 % 11.6-14.6 [facility] Work Phone: Immature granulocytes/100 WBC (Bld) 3.700 % 0.0-0.9 [facility] Work Phone: Comment on above: IG% - Immature Granu locytes (promyelocytes, myelocytes and metamyelocytes) > 1% indicates that a LEFT SHIFT is Present. MCH (RBC) [Entitic mass] 29.4 pg 27.0-32.0 [facility] Work Phone: Nucleated RBC/100 WBC (Bld) [Ratio] 0.1 % 0-5 [facility] Work Phone: MCHC Auto (RBC) [Mass/Vol]on 04-27-2022 MCHC (RBC) [Mass/Vol] 32.3 g/dL 32-36 [facility] Work Phone: No Panel Informationon 04-27 Estimated GFR (MDRD) Amer 44 mL/min >60 [facility] Work Phone: Comment on above: GFR Calc Estimated GFR (MDRD) Non-Af Amer 36 mL/min >60 [facility] Work Phone: Comment on above: Non- GFR Calc [place] Level 0.50 mmol/L 0.60-1.20 [facility] Work Phone: Platelets bldon 04-27-2022 Platelets (Bld) [#/Vol] 243 10*3/uL 150-450 [facility] Work Phone: Serum or plasma albumin you urement (mass/volume)on 04-27-2022 Albumin [Mass/Vol] 2.9 g/dL 3.2-5.0 [facility] Work Phone: Serum or plasma calcium you urement (mass/volume)on 04-27-2022 Calcium [Mass/Vol] 9.3 mg/dL 8.5-10.1 [facility] Work Phone: Serum or plasma creatinine m easurement (mass/volume)on 04-27-2022 Creatinine [Mass/Vol] 2.02 mg/dL 0.70-1.30 [place] [facility] Work Phone: Comment on above: The validity of the calculated GFR & GFRAA in patients over 70 years has not been determined. Clinical correlation is essential. Serum or plasma urea nitroge n measurement (mass/volume)on 04-27-2022 Urea nitrogen [Mass/Vol] 27 mg/dL 7-18 [facility] Work Phone: Serum or plasma uric acid me asurement (mass/volume)on 04-27-2022 Urate [Mass/Vol] 6.5 mg/dL 3.5-7.2 [facility] Work Phone: Comment on above: The drugs N-Acetylcy steine and Metamizole may falsely depress this assay. Urine creatinine measurement (mass/volume)on 04-27-2022 Creatinine (U) [Mass/Vol] 69.70 mg/dL NO RANGE EST. [facility] Work Phone: Urine protein measurement (m ass/volume)on 04-27-2022 Protein (U) [Mass/Vol] 10.2 mg/dL 0.0-11.8 [facility] Work Phone: Urine protein/creatinine mas s ratioon 04-27-2022 Protein/Creatinine (U) [Mass ratio] 146 mg/g CRE 0-200 [facility] Work Phone: Basophil percentageon 2021 Basophil percentage 4.2 mg/dL 2.5-4.9 [place] [facility] Work Phone: Chloride [Moles/Vol] 107 mmol/L 98-[address] [facility] Work Phone: Glucose [Mass/Vol] 129 mg/dL 74-106 [facility] Work Phone: Comment on above: Fasting Glucose resu lt greater than or equal to 126 mg/dL suggests DIABETES MELLITUS per A.D.A. criteria. Potassium [Moles/Vol] 3.8 mmol/L 3.5-5.1 [facility] Work Phone: Sodium [Moles/Vol] 140 mmol/L 136-145 [facility] Work Phone: Basophil percentage 25-50 SEEN /hpf 0-5 [facility] Work Phone: Bilirubin Test strip Ql (U)o n 04-22-2022 Bilirubin Ql (U) Negative Negative [facility] Work Phone: Culture, urineon 04-22-2022 Bacteria identified Cx Nom (U) Positive [facility] Work Phone: Ketones Test strip Ql (U)on 04-22-2022 Ketones Ql (U) Negative Negative [facility] Work Phone: Laboratory - Chemistry and C hemistry - challengeon 04-22-2022 CO2 [Moles/Vol] 27.0 mmol/L 21.0-32.0 [facility] Work Phone: Urea nitrogen/Creatinine [Mass ratio] 8.2 mg/mg 10-20 [facility] Work Phone: Mucus LM Ql (Urine sed)on Mucus Ql (Urine sed) 0 SEEN /hpf [facility] Work Phone: Nitrite Test strip Ql (U)on 04-22-2022 Nitrite Ql (U) Negative Negative [facility] Work Phone: No Panel Informationon 04-22 Estimated GFR (MDRD) Amer 53 mL/min >60 [facility] Work Phone: Comment on above: GFR Calc Estimated GFR (MDRD) Non-Af Amer 44 mL/min >60 [facility] Work Phone: Comment on above: Non- GFR Calc Protein Test strip Ql (U)on 04-22-2022 Protein Ql (U) 15 mg/dl Negative [facility] Work Phone: Serum or plasma albumin you urement (mass/volume)on 04-22-2022 Albumin [Mass/Vol] 2.6 g/dL 3.2-5.0 [facility] Work Phone: Serum or plasma calcium you urement (mass/volume)on 04-22-2022 Calcium [Mass/Vol] 9.1 mg/dL 8.5-10.1 [facility] Work Phone: Serum or plasma creatinine m easurement (mass/volume)on 04-22-2022 Creatinine [Mass/Vol] 1.71 mg/dL 0.70-1.30 [facility] Work Phone: Comment on above: The validity of the calculated GFR & GFRAA in patients over 70 years has not been determined. Clinical correlation is essential. Serum or plasma urea nitroge n measurement (mass/volume)on 04-22-2022 Urea nitrogen [Mass/Vol] 14 mg/dL 7-18 [facility] Work Phone: Squamous epithelial cells de tection in urine sediment by light microscopyon 04-22-2022 Epithelial cells.squamous LM Ql (Urine sed) 0-5 SEEN /hpf 0-5 [facility] Work Phone: Urine blood detectionon RBC Ql (U) 10 /ul Negative [facility] Work Phone: RBC Ql (U) 0-5 SEEN /hpf 0-5 [facility] Work Phone: Urine clarityon 04-22-2022 Clarity (U) Clear Clear [facility] Work Phone: Urine color determinationon 04-22-2022 Color (U) Yellow Yellow [facility] Work Phone: Urine creatinine measurement (mass/volume)on 04-22-2022 Creatinine (U) [Mass/Vol] 171.00 mg/dL NO RANGE EST. [facility] Work Phone: Urine glucose detectionon Glucose Ql (U) Normal mg/dl Normal [facility] Work Phone: Urine leukocyte esterase det ection by dipstickon 04-22-2022 Leukocyte esterase Test strip Ql (U) 500 /ul Negative [facility] Work Phone: Urine pHon 04-22-2022 pH (U) 6.0 [pH] 5.0 - 8.0 [facility] Work Phone: Urine protein measurement (m ass/volume)on 04-22-2022 Protein (U) [Mass/Vol] 30.4 mg/dL 0.0-11.8 [facility] Work Phone: Urine protein/creatinine mas s ratioon 04-22-2022 Protein/Creatinine (U) [Mass ratio] 178 mg/g CRE 0-200 [facility] Work Phone: Urine sediment bacteria coun t by microscopy (number/high power field)on 04-22-2022 Bacteria LM.HPF (Urine sed) [#/Area] 0 /[HPF] None Seen [facility] Work Phone: Urine specific gravity measu rementon 04-22-2022 Specific gravity (U) [Rel density] 1.015 1.002-1.030 [facility] Work Phone: Urobilinogen Auto test strip Ql (U)on 04-22-2022 Urobilinogen Ql (U) Normal mg/dl Normal [facility] Work Phone: Absolute lymphocyte counton 04-21-2022 Lymphocytes Auto (Unsp spec) [#/Vol] 2.19 10*3/uL 0.83-4.51 [facility] Work Phone: Basophil percentageon 2021 Basophils/100 WBC (Bld) 0.6 % 0-1 [facility] Work Phone: Eosinophils/100 WBC (Bld) 2.4 % 0-5 [facility] Work Phone: Neutrophils (Bld) [#/Vol] 5.3 10*3/uL 2.0-7.7 [facility] Work Phone: Neutrophils/100 WBC (Bld) 60.5 % 47-70 [facility] Work Phone: WBC (Bld) [#/Vol] 8.8 10*3/uL 4.4-11.0 [facility] Work Phone: Blood erythrocytes count (nu mber/volume)on 04-21-2022 RBC (Bld) [#/Vol] 4.29 10*6/uL 4.6-6.2 [facility] Work Phone: Blood hemoglobin measurement (mass/volume)on 04-21-2022 Hemoglobin (Bld) [Mass/Vol] 12.9 g/dL 13.0-16.5 [facility] Work Phone: Blood lymphocytes/100 leukoc yteson 04-21-2022 Lymphocytes/100 WBC (Bld) 24.9 % 19-41 [facility] Work Phone: Blood monocytes/100 leukocyt eson 04-21-2022 Monocytes/100 WBC (Bld) 11.4 % 0-10 [facility] Work Phone: Blood platelet mean volumeon 04-21-2022 Platelet mean volume (Bld) [Entitic vol] 9.5 fL 6.2-12.0 [facility] Work Phone: Determination of erythrocyte mean corpuscular volume (MCV)on 04-21-2022 MCV (RBC) [Entitic vol] 92.1 fL 80-94 [facility] Work Phone: Hematocrit Auto (Bld) [Volum e fraction]on 04-21-2022 Hematocrit (Bld) [Volume fraction] 39.5 % 40-54 [facility] Work Phone: Laboratory - Hematology and Cell countson 04-21-2022 Erythrocyte distribution width (RBC) [Entitic vol] 45.9 fL 35.1-43.9 [facility] Work Phone: Erythrocyte distribution width (RBC) [Ratio] 13.5 % 11.6-14.6 [facility] Work Phone: Immature granulocytes/100 WBC (Bld) 0.200 % 0.0-0.9 [facility] Work Phone: Comment on above: IG% - Immature Granu locytes (promyelocytes, myelocytes and metamyelocytes) > 1% indicates that a LEFT SHIFT is Present. MCH (RBC) [Entitic mass] 30.1 pg 27.0-32.0 [facility] Work Phone: Nucleated RBC/100 WBC (Bld) [Ratio] 0 % 0-5 [facility] Work Phone: MCHC Auto (RBC) [Mass/Vol]on 04-21-2022 MCHC (RBC) [Mass/Vol] 32.7 g/dL 32-36 [facility] Work Phone: Platelets bldon 04-21-2022 Platelets (Bld) [#/Vol] 199 10*3/uL 150-450 [facility] Work Phone: Serum or plasma uric acid me asurement (mass/volume)on 04-21-2022 Urate [Mass/Vol] 6.2 mg/dL 3.5-7.2 [facility] Work Phone: Comment on above: The drugs N-Acetylcy steine and Metamizole may falsely depress this assay. Laboratory - Microbiology an d Antimicrobial susceptibilityon 04-06-2022 SARS-CoV-2 (COVID-19) RNA AMANDO+probe Ql (Unsp spec) Detected Not Detect [facility] Work Phone: Comment on above: Normal Reference Ran ge: Not DetectedMethod:(RT-PCR) real-time reverse transcriptase PCRLuminex MORGAN Instrument*The Food and Drug Administration (FDA) has issued an Emergency Use Authorization (EAU) for the MORGAN SARS-CoV-2 Assay for the rapid detection of the virus that causes COVID-19. This test has been validated, but [facility] review of this validation is [...] Auto (Unsp spec) [#/Vol] 1.96 10*3/uL 0.83-4.51 [facility] Work Phone: Basophil percentageon 2021 Basophils/100 WBC (Bld) 0.6 % 0-1 [facility] Work Phone: Chloride [Moles/Vol] 103 mmol/L 98-107 [facility] Work Phone: Eosinophils/100 WBC (Bld) 0.6 % 0-5 [facility] Work Phone: [phone] Glucose [Mass/Vol] 133 mg/dL 74-106 [facility] Work Phone: [phone] Comment on above: Fasting Glucose resu lt greater than or equal to 126 mg/dL suggests DIABETES MELLITUS per A.D.A. criteria. Neutrophils (Bld) [#/Vol] 7.3 10*3/uL 2.0-7.7 [facility] Work Phone: Neutrophils/100 WBC (Bld) 64.6 % 47-70 [facility] Work Phone: Potassium [Moles/Vol] 3.5 mmol/L 3.5-5.1 [facility] Work Phone: Sodium [Moles/Vol] 138 mmol/L 136-145 [facility] Work Phone: WBC (Bld) [#/Vol] 11.3 10*3/uL 4.4-11.0 [facility] Work Phone: Blood erythrocytes count (nu mber/volume)on 04-02-2022 RBC (Bld) [#/Vol] 4.81 10*6/uL 4.6-6.2 [facility] Work Phone: Blood hemoglobin measurement (mass/volume)on 04-02-2022 Hemoglobin (Bld) [Mass/Vol] 14.4 g/dL 13.0-16.5 [facility] Work Phone: Blood lymphocytes/100 leukoc yteson 04-02-2022 Lymphocytes/100 WBC (Bld) 17.3 % 19-41 [facility] Work Phone: Blood monocytes/100 leukocyt eson 04-02-2022 Monocytes/100 WBC (Bld) 15.7 % 0-10 [facility] Work Phone: Blood platelet mean volumeon 04-02-2022 Platelet mean volume (Bld) [Entitic vol] 10.0 fL 6.2-12.0 [facility] Work Phone: Determination of erythrocyte mean corpuscular volume (MCV)on 04-02-2022 MCV (RBC) [Entitic vol] 91.7 fL 80-94 [facility] Work Phone: Hematocrit Auto (Bld) [Volum e fraction]on 04-02-2022 Hematocrit (Bld) [Volume fraction] 44.1 % 40-54 [facility] Work Phone: Laboratory - Chemistry and C hemistry - challengeon 04-02-2022 CO2 [Moles/Vol] 26.0 mmol/L 21.0-32.0 [facility] Work Phone: Urea nitrogen/Creatinine [Mass ratio] 14.1 mg/mg 09-02 [facility] Work Phone: Laboratory - Hematology and Cell countson 04-02-2022 Erythrocyte distribution width (RBC) [Entitic vol] 47.8 fL 35.1-43.9 [facility] Work Phone: Erythrocyte distribution width (RBC) [Ratio] 14.0 % 11.6-14.6 [facility] Work Phone: Immature granulocytes/100 WBC (Bld) 1.200 % 0.0-0.9 [facility] Work Phone: Comment on above: IG% - Immature Granu locytes (promyelocytes, myelocytes and metamyelocytes) > 1% indicates that a LEFT SHIFT is Present. MCH (RBC) [Entitic mass] 29.9 pg 27.0-32.0 [facility] Work Phone: Nucleated RBC/100 WBC (Bld) [Ratio] 0 % 0-5 [facility] Work Phone: MCHC Auto (RBC) [Mass/Vol]on 04-02-2022 MCHC (RBC) [Mass/Vol] 32.7 g/dL 32-36 [facility] Work Phone: No Panel Informationon 04-02 Estimated GFR (MDRD) Amer 51 mL/min >60 [facility] Work Phone: Comment on above: GFR Calc Estimated GFR (MDRD) Non-Af Amer 42 mL/min >60 [facility] Work Phone: Comment on above: Non- GFR Calc Platelets bldon 04-02-2022 Platelets (Bld) [#/Vol] 160 10*3/uL 150-450 [facility] Work Phone: Review by pathologiston 03-15 Pathologist review Crispin (Unsp spec) [Interp] Reviewed [facility] Work Phone: Comment on above: Previous reported re sult: Bonnie kincaid Edited by: RGOVISHAL on 04/06/22:912Leukocytosis. Tuan Servin M.D. 04/06/22 AMENDED REPORT 04/06/22912 PATH REV previously reported as: Bonnie kincaid Serum or plasma calcium you urement (mass/volume)on 04-02-2022 Calcium [Mass/Vol] 9.0 mg/dL 8.5-10.1 [facility] Work Phone: Serum or plasma creatinine m easurement (mass/volume)on 04-02-2022 Creatinine [Mass/Vol] 1.77 mg/dL 0.70-1.30 [facility] Work Phone: Comment on above: The validity of the calculated GFR & GFRAA in patients over 70 years has not been determined. Clinical correlation is essential. Serum or plasma urea nitroge n measurement (mass/volume)on 04-02-2022 Urea nitrogen [Mass/Vol] 25 mg/dL 7-18 [facility] Work Phone: [phone] Thin prep Papanicolaou smear with manual screeningon 04-02-2022 Thin prep Papanicolaou smear with manual screening 9 5-15 [facility] Work Phone: Absolute lymphocyte counton 03-25-2022 Lymphocytes Auto (Unsp spec) [#/Vol] 2.80 10*3/uL 0.83-4.51 [facility] Work Phone: [phone] Basophil percentageon 2021 Basophil percentage 4.0 mg/dL 2.5-4.9 [facility] Work Phone: Basophils/100 WBC (Bld) 0.6 % 0-1 [facility] Work Phone: Chloride [Moles/Vol] 106 mmol/L 98-107 [facility] Work Phone: Eosinophils/100 WBC (Bld) 1.7 % 0-5 [facility] Work Phone: Glucose [Mass/Vol] 164 mg/dL 74-106 [facility] Work Phone: Comment on above: Fasting Glucose resu lt greater than or equal to 126 mg/dL suggests DIABETES MELLITUS per A.D.A. criteria. Neutrophils (Bld) [#/Vol] 5.6 10*3/uL 2.0-7.7 [facility] Work Phone: [phone] Neutrophils/100 WBC (Bld) 56.9 % 47-70 [facility] Work Phone: Potassium [Moles/Vol] 3.8 mmol/L 3.5-5.1 [place] [facility] Work Phone: Sodium [Moles/Vol] 139 mmol/L 136-145 [facility] Work Phone: WBC (Bld) [#/Vol] 9.8 10*3/uL 4.4-11.0 [facility] Work Phone: Basophil percentage 0-5 SEEN /hpf 0-5 [place] [facility] Work Phone: Bilirubin Test strip Ql (U)o n 03-25-2022 Bilirubin Ql (U) Negative Negative [facility] Work Phone: Blood erythrocytes count (nu mber/volume)on 03-25-2022 RBC (Bld) [#/Vol] 4.77 10*6/uL 4.6-6.2 [facility] Work Phone: Blood hemoglobin measurement (mass/volume)on 03-25-2022 Hemoglobin (Bld) [Mass/Vol] 14.1 g/dL 13.0-16.5 [facility] Work Phone: Blood lymphocytes/100 leukoc yteson 03-25-2022 Lymphocytes/100 WBC (Bld) 28.7 % 19-41 [facility] Work Phone: Blood monocytes/100 leukocyt eson 03-25-2022 Monocytes/100 WBC (Bld) 9.2 % 0-10 [facility] Work Phone: [phone] Blood platelet mean volumeon 03-25-2022 Platelet mean volume (Bld) [Entitic vol] 9.3 fL 6.2-12.0 [facility] Work Phone: Determination of erythrocyte mean corpuscular volume (MCV)on 03-25-2022 MCV (RBC) [Entitic vol] 91.4 fL 80-94 [facility] Work Phone: Hematocrit Auto (Bld) [Volum e fraction]on 03-25-2022 Hematocrit (Bld) [Volume fraction] 43.6 % 40-54 [facility] Work Phone: Ketones Test strip Ql (U)on 03-25-2022 Ketones Ql (U) Negative Negative [facility] Work Phone: Laboratory - Chemistry and C hemistry - challengeon 03-25-2022 CO2 [Moles/Vol] 26.0 mmol/L 21.0-32.0 [facility] Work Phone: Urea nitrogen/Creatinine [Mass ratio] 15.4 mg/mg 10-20 [facility] Work Phone: Laboratory - Hematology and Cell countson 03-25-2022 Erythrocyte distribution width (RBC) [Entitic vol] 45.9 fL 35.1-43.9 [facility] Work Phone: Erythrocyte distribution width (RBC) [Ratio] 13.6 % 11.6-14.6 [facility] Work Phone: Immature granulocytes/100 WBC (Bld) 2.900 % 0.0-0.9 [facility] Work Phone: Comment on above: IG% - Immature Granu locytes (promyelocytes, myelocytes and metamyelocytes) > 1% indicates that a LEFT SHIFT is Present. MCH (RBC) [Entitic mass] 29.6 pg 27.0-32.0 [facility] Work Phone: Nucleated RBC/100 WBC (Bld) [Ratio] 0 % 0-5 [facility] Work Phone: MCHC Auto (RBC) [Mass/Vol]on 03-25-2022 MCHC (RBC) [Mass/Vol] 32.3 g/dL 32-36 [facility] Work Phone: Mucus LM Ql (Urine sed)on Mucus Ql (Urine sed) 0 SEEN /hpf [facility] Work Phone: Nitrite Test strip Ql (U)on 03-25-2022 Nitrite Ql (U) Negative Negative [facility] Work Phone: No Panel Informationon 03-25 Estimated GFR (MDRD) Amer 52 mL/min >60 [facility] Work Phone: Comment on above: GFR Calc Estimated GFR (MDRD) Non-Af Amer 43 mL/min >60 [facility] Work Phone: Comment on above: Non- GFR Calc Platelets bldon 03-25-2022 Platelets (Bld) [#/Vol] 276 10*3/uL 150-450 [facility] Work Phone: Protein Test strip Ql (U)on 03-25-2022 Protein Ql (U) Negative Negative [facility] Work Phone: Serum or plasma albumin you urement (mass/volume)on 03-25-2022 Albumin [Mass/Vol] 2.9 g/dL 3.2-5.0 [facility] Work Phone: Serum or plasma calcium you urement (mass/volume)on 03-25-2022 Calcium [Mass/Vol] 8.7 mg/dL 8.5-10.1 [facility] Work Phone: Serum or plasma creatinine m easurement (mass/volume)on 03-25-2022 Creatinine [Mass/Vol] 1.75 mg/dL 0.70-1.30 [facility] Work Phone: Comment on above: The validity of the calculated GFR & GFRAA in patients over 70 years has not been determined. Clinical correlation is essential. Serum or plasma urea nitroge n measurement (mass/volume)on 03-25-2022 Urea nitrogen [Mass/Vol] 27 mg/dL 7-18 [facility] Work Phone: Squamous epithelial cells de tection in urine sediment by light microscopyon 03-25-2022 Epithelial cells.squamous LM Ql (Urine sed) 0-5 SEEN /hpf 0-5 [facility] Work Phone: Urine blood detectionon 03-14 RBC Ql (U) Negative Negative [facility] Work Phone: RBC Ql (U) 0 SEEN /hpf 0-5 [facility] Work Phone: Urine clarityon 03-25-2022 Clarity (U) Sl. Cloudy Clear [facility] Work Phone: Urine color determinationon 03-25-2022 Color (U) Yellow Yellow [facility] Work Phone: Urine creatinine measurement (mass/volume)on 03-25-2022 Creatinine (U) [Mass/Vol] 90.50 mg/dL NO RANGE EST. [facility] Work Phone: Urine glucose detectionon Glucose Ql (U) Normal mg/dl Normal [facility] Work Phone: Urine leukocyte esterase det ection by dipstickon 03-25-2022 Leukocyte esterase Test strip Ql (U) 25 /ul Negative [facility] Work Phone: Urine pHon 03-25-2022 pH (U) 6.0 [pH] 5.0 - 8.0 [facility] Work Phone: Urine protein measurement (m ass/volume)on 03-25-2022 Protein (U) [Mass/Vol] 15.8 mg/dL 0.0-11.8 [facility] Work Phone: Urine protein/creatinine mas s ratioon 03-25-2022 Protein/Creatinine (U) [Mass ratio] 175 mg/g CRE 0-200 [facility] Work Phone: Urine sediment bacteria coun t by microscopy (number/high power field)on 03-25-2022 Bacteria LM.HPF (Urine sed) [#/Area] 0 /[HPF] None Seen [facility] Work Phone: Urine specific gravity measu rementon 03-25-2022 Specific gravity (U) [Rel density] 1.015 1.002-1.030 [facility] Work Phone: Urobilinogen Auto test strip Ql (U)on 03-25-2022 Urobilinogen Ql (U) Normal mg/dl Normal [facility] Work Phone: Serum or plasma uric acid me asurement (mass/volume)on 03-19-2022 Urate [Mass/Vol] 8.3 mg/dL 3.5-7.2 [facility] Work Phone: Comment on above: The drugs N-Acetylcy steine and Metamizole may falsely depress this assay. Absolute lymphocyte counton 02-25-2022 Lymphocytes Auto (Unsp spec) [#/Vol] 2.27 10*3/uL 0.83-4.51 [facility] Work Phone: [phone] Basophil percentageon 2021 Basophil percentage 0 SEEN /hpf 0-5 [facility] Work Phone: Basophil percentage 4.3 mg/dL 2.5-4.9 [facility] Work Phone: Basophils/100 WBC (Bld) 0.3 % 0-1 [facility] Work Phone: Chloride [Moles/Vol] 102 mmol/L 98-107 [facility] Work Phone: Eosinophils/100 WBC (Bld) 0.2 % 0-5 [facility] Work Phone: Glucose [Mass/Vol] 107 mg/dL 74-106 [facility] Work Phone: Comment on above: Fasting Glucose resu lt from 100 to 125 mg/dL suggests IMPAIRED HOMEOSTASIS per A.D.A. criteria. Neutrophils (Bld) [#/Vol] 7.8 10*3/uL 2.0-7.7 [facility] Work Phone: Neutrophils/100 WBC (Bld) 67.9 % 47-70 [facility] Work Phone: [phone] Potassium [Moles/Vol] 4.1 mmol/L 3.5-5.1 [facility] Work Phone: Comment on above: Moderate Hemolysis, Result may be falsely increased. Sodium [Moles/Vol] 137 mmol/L 136-145 [facility] Work Phone: [phone] WBC (Bld) [#/Vol] 11.6 10*3/uL 4.4-11.0 [facility] Work Phone: Bilirubin Test strip Ql (U)o n 02-25-2022 Bilirubin Ql (U) Negative Negative [facility] Work Phone: Blood erythrocytes count (nu mber/volume)on 02-25-2022 RBC (Bld) [#/Vol] 4.09 10*6/uL 4.6-6.2 [facility] Work Phone: Blood hemoglobin measurement (mass/volume)on 02-25-2022 Hemoglobin (Bld) [Mass/Vol] 12.0 g/dL 13.0-16.5 [facility] Work Phone: Blood lymphocytes/100 leukoc yteson 02-25-2022 Lymphocytes/100 WBC (Bld) 19.7 % 19-41 [facility] Work Phone: Blood monocytes/100 leukocyt eson 02-25-2022 Monocytes/100 WBC (Bld) 9.0 % 0-10 [facility] Work Phone: Blood platelet adequacy dete ction by light microscopyon 02-25-2022 Platelets LM Ql (Bld) ADEQUATE ADEQ [facility] Work Phone: Blood platelet mean volumeon 02-25-2022 Platelet mean volume (Bld) [Entitic vol] 9.9 fL 6.2-12.0 [facility] Work Phone: Culture, urineon 02-25-2022 Bacteria identified Cx Nom (U) Culture exhibits no growth. [facility] Work Phone: Determination of erythrocyte mean corpuscular volume (MCV)on 02-25-2022 MCV (RBC) [Entitic vol] 90.2 fL 80-94 [facility] Work Phone: Hematocrit Auto (Bld) [Volum e fraction]on 02-25-2022 Hematocrit (Bld) [Volume fraction] 36.9 % 40-54 [facility] Work Phone: Ketones Test strip Ql (U)on 02-25-2022 Ketones Ql (U) Negative Negative [facility] Work Phone: Laboratory - Chemistry and C hemistry - challengeon 02-25-2022 CO2 [Moles/Vol] 26.0 mmol/L 21.0-32.0 [facility] Work Phone: Urea nitrogen/Creatinine [Mass ratio] 18.6 mg/mg 10-20 [facility] Work Phone: Laboratory - Hematology and Cell countson 02-25-2022 Erythrocyte distribution width (RBC) [Entitic vol] 46.8 fL 35.1-43.9 [facility] Work Phone: Erythrocyte distribution width (RBC) [Ratio] 14.1 % 11.6-14.6 [facility] Work Phone: Immature granulocytes/100 WBC (Bld) 2.900 % 0.0-0.9 [facility] Work Phone: Comment on above: IG% - Immature Granu locytes (promyelocytes, myelocytes and metamyelocytes) > 1% indicates that a LEFT SHIFT is Present. MCH (RBC) [Entitic mass] 29.3 pg 27.0-32.0 [facility] Work Phone: Nucleated RBC/100 WBC (Bld) [Ratio] 0 % 0-5 [facility] Work Phone: MCHC Auto (RBC) [Mass/Vol]on 02-25-2022 MCHC (RBC) [Mass/Vol] 32.5 g/dL 32-36 [facility] Work Phone: Mucus LM Ql (Urine sed)on Mucus Ql (Urine sed) 0 SEEN /hpf [facility] Work Phone: Nitrite Test strip Ql (U)on 02-25-2022 Nitrite Ql (U) Negative Negative [facility] Work Phone: No Panel Informationon 02-25 Estimated GFR (MDRD) Amer 43 mL/min >60 [facility] Work Phone: Comment on above: GFR Calc Estimated GFR (MDRD) Non-Af Amer 36 mL/min >60 [facility] Work Phone: Comment on above: Non- GFR Calc [place] Level 0.50 mmol/L 0.60-1.20 [facility] Work Phone: Platelets bldon 02-25-2022 Platelets (Bld) [#/Vol] TNP [facility] Work Phone: Comment on above: Test not performedPl ease note: For this sample, a platelet estimate is provided rather than a platelet count due to platelet clumping. Other parameters associated with this sample are not affected by platelet clumping. If a more accurate platelet count is required, a redraw of the patient will be necessary.Previous reported result: [id number] by: RUPERTO on 02/25/22:1032 AMENDED REPORT 02/25/22 1032 PLT previously reported as: 202 K/mm3 Protein Test strip Ql (U)on 02-25-2022 Protein Ql (U) Negative Negative [facility] Work Phone: Serum or plasma albumin you urement (mass/volume)on 02-25-2022 Albumin [Mass/Vol] 3.2 g/dL 3.2-5.0 [facility] Work Phone: Serum or plasma calcium you urement (mass/volume)on 02-25-2022 Calcium [Mass/Vol] 8.4 mg/dL 8.5-10.1 [facility] Work Phone: Serum or plasma creatinine m easurement (mass/volume)on 02-25-2022 Creatinine [Mass/Vol] 2.04 mg/dL 0.70-1.30 [facility] Work Phone: Comment on above: The validity of the calculated GFR & GFRAA in patients over 70 years has not been determined. Clinical correlation is essential. Serum or plasma urea nitroge n measurement (mass/volume)on 02-25-2022 Urea nitrogen [Mass/Vol] 38 mg/dL 7-18 [facility] Work Phone: Serum or plasma uric acid me asurement (mass/volume)on 02-25-2022 Urate [Mass/Vol] 7.8 mg/dL 3.5-7.2 [facility] Work Phone: Comment on above: The drugs N-Acetylcy steine and Metamizole may falsely depress this assay. Squamous epithelial cells de tection in urine sediment by light microscopyon 02-25-2022 Epithelial cells.squamous LM Ql (Urine sed) 0 SEEN /hpf 0-5 [facility] Work Phone: Urine blood detectionon 02-12 RBC Ql (U) Negative Negative [facility] Work Phone: RBC Ql (U) 0 SEEN /hpf 0-5 [facility] Work Phone: Urine clarityon 02-25-2022 Clarity (U) Clear Clear [facility] Work Phone: Urine color determinationon 02-25-2022 Color (U) Yellow Yellow [facility] Work Phone: Urine creatinine measurement (mass/volume)on 02-25-2022 Creatinine (U) [Mass/Vol] 82.80 mg/dL NO RANGE EST. [facility] Work Phone: Urine glucose detectionon Glucose Ql (U) Normal mg/dl Normal [facility] Work Phone: Urine leukocyte esterase det ection by dipstickon 02-25-2022 Leukocyte esterase Test strip Ql (U) 25 /ul Negative [facility] Work Phone: Urine pHon 02-25-2022 pH (U) 6.0 [pH] 5.0 - 8.0 [facility] Work Phone: Urine protein measurement (m ass/volume)on 02-25-2022 Protein (U) [Mass/Vol] 13.8 mg/dL 0.0-11.8 [facility] Work Phone: Urine protein/creatinine mas s ratioon 02-25-2022 Protein/Creatinine (U) [Mass ratio] 167 mg/g CRE 0-200 [facility] Work Phone: Urine sediment bacteria coun t by microscopy (number/high power field)on 02-25-2022 Bacteria LM.HPF (Urine sed) [#/Area] 0 /[HPF] None Seen [facility] Work Phone: Urine specific gravity measu rementon 02-25-2022 Specific gravity (U) [Rel density] 1.020 1.002-1.030 [facility] Work Phone: Urobilinogen Auto test strip Ql (U)on 02-25-2022 Urobilinogen Ql (U) Normal mg/dl Normal [facility] Work Phone: Basophil percentageon 2021 Chloride [Moles/Vol] 110 mmol/L 98-107 [facility] Work Phone: Glucose [Mass/Vol] 125 mg/dL 74-106 [facility] Work Phone: Comment on above: Fasting Glucose resu lt from 100 to 125 mg/dL suggests IMPAIRED HOMEOSTASIS per A.D.A. criteria. Potassium [Moles/Vol] 4.1 mmol/L 3.5-5.1 [facility] Work Phone: Sodium [Moles/Vol] 139 mmol/L 136-145 [facility] Work Phone: Erythrocyte sedimentation ra meredith 02-18-2022 ESR (Bld) [Velocity] 12 mm/h 0-20 [facility] Work Phone: Laboratory - Chemistry and C hemistry - challengeon 02-18-2022 CO2 [Moles/Vol] 24.0 mmol/L 21.0-32.0 [facility] Work Phone: Urea nitrogen/Creatinine [Mass ratio] 11.8 mg/mg 10-20 [facility] Work Phone: No Panel Informationon 02-18 Estimated GFR (MDRD) Amer 48 mL/min >60 [facility] Work Phone: Comment on above: GFR Calc Estimated GFR (MDRD) Non-Af Amer 40 mL/min >60 [facility] Work Phone: Comment on above: Non- GFR Calc Serum or plasma calcium you urement (mass/volume)on 02-18-2022 Calcium [Mass/Vol] 8.7 mg/dL 8.5-10.1 [facility] Work Phone: Serum or plasma creatinine m easurement (mass/volume)on 02-18-2022 Creatinine [Mass/Vol] 1.86 mg/dL 0.70-1.30 [facility] Work Phone: Comment on above: The validity of the calculated GFR & GFRAA in patients over 70 years has not been determined. Clinical correlation is essential. Serum or plasma urea nitroge n measurement (mass/volume)on 02-18-2022 Urea nitrogen [Mass/Vol] 22 mg/dL 7-18 [facility] Work Phone: Serum or plasma uric acid me asurement (mass/volume)on 02-18-2022 Urate [Mass/Vol] 7.2 mg/dL 3.5-7.2 [facility] Work Phone: Comment on above: The drugs N-Acetylcy steine and Metamizole may falsely depress this assay. Thin prep Papanicolaou smear with manual screeningon 02-18-2022 Thin prep Papanicolaou smear with manual screening 5 5-15 [facility] Work Phone: Absolute lymphocyte counton 01-28-2022 Lymphocytes Auto (Unsp spec) [#/Vol] 1.90 10*3/uL 0.83-4.51 [facility] Work Phone: Basophil percentageon 2021 Basophil percentage 0 SEEN /hpf 0-5 [facility] Work Phone: Basophil percentage 2.7 mg/dL 2.5-4.9 [facility] Work Phone: Basophils/100 WBC (Bld) 0.5 % 0-1 [facility] Work Phone: Chloride [Moles/Vol] 110 mmol/L 98-107 [facility] Work Phone: Eosinophils/100 WBC (Bld) 0.4 % 0-5 [facility] Work Phone: Glucose [Mass/Vol] 129 mg/dL 74-106 [facility] Work Phone: [phone] Comment on above: Fasting Glucose resu lt greater than or equal to 126 mg/dL suggests DIABETES MELLITUS per A.D.A. criteria. Neutrophils (Bld) [#/Vol] 8.0 10*3/uL 2.0-7.7 [facility] Work Phone: Neutrophils/100 WBC (Bld) 70.6 % 47-70 [facility] Work Phone: Potassium [Moles/Vol] 3.8 mmol/L 3.5-5.1 [facility] Work Phone: [phone] Sodium [Moles/Vol] 141 mmol/L 136-145 [facility] Work Phone: WBC (Bld) [#/Vol] 11.3 10*3/uL 4.4-11.0 [facility] Work Phone: [phone] Bilirubin Test strip Ql (U)o n 01-28-2022 Bilirubin Ql (U) Negative Negative [facility] Work Phone: Blood erythrocytes count (nu mber/volume)on 01-28-2022 RBC (Bld) [#/Vol] 4.23 10*6/uL 4.6-6.2 [facility] Work Phone: Blood hemoglobin measurement (mass/volume)on 01-28-2022 Hemoglobin (Bld) [Mass/Vol] 12.6 g/dL 13.0-16.5 [facility] Work Phone: Blood lymphocytes/100 leukoc yteson 01-28-2022 Lymphocytes/100 WBC (Bld) 16.8 % 19-41 [facility] Work Phone: Blood monocytes/100 leukocyt eson 01-28-2022 Monocytes/100 WBC (Bld) 10.0 % 0-10 [facility] Work Phone: Blood platelet mean volumeon 01-28-2022 Platelet mean volume (Bld) [Entitic vol] 9.3 fL 6.2-12.0 [facility] Work Phone: Determination of erythrocyte mean corpuscular volume (MCV)on 01-28-2022 MCV (RBC) [Entitic vol] 91.3 fL 80-94 [facility] Work Phone: Hematocrit Auto (Bld) [Volum e fraction]on 01-28-2022 Hematocrit (Bld) [Volume fraction] 38.6 % 40-54 [facility] Work Phone: Ketones Test strip Ql (U)on 01-28-2022 Ketones Ql (U) Negative Negative [facility] Work Phone: Laboratory - Chemistry and C hemistry - challengeon 01-28-2022 CO2 [Moles/Vol] 25.0 mmol/L 21.0-32.0 [facility] Work Phone: Urea nitrogen/Creatinine [Mass ratio] 14.7 mg/mg 10-20 [facility] Work Phone: Laboratory - Hematology and Cell countson 01-28-2022 Erythrocyte distribution width (RBC) [Entitic vol] 45.7 fL 35.1-43.9 [facility] Work Phone: Erythrocyte distribution width (RBC) [Ratio] 13.7 % 11.6-14.6 [facility] Work Phone: Immature granulocytes/100 WBC (Bld) 1.700 % 0.0-0.9 [facility] Work Phone: Comment on above: IG% - Immature Granu locytes (promyelocytes, myelocytes and metamyelocytes) > 1% indicates that a LEFT SHIFT is Present. MCH (RBC) [Entitic mass] 29.8 pg 27.0-32.0 [facility] Work Phone: Nucleated RBC/100 WBC (Bld) [Ratio] 0 % 0-5 [facility] Work Phone: MCHC Auto (RBC) [Mass/Vol]on 01-28-2022 MCHC (RBC) [Mass/Vol] 32.6 g/dL 32-36 [facility] Work Phone: Mucus LM Ql (Urine sed)on Mucus Ql (Urine sed) 0 SEEN /hpf [facility] Work Phone: Nitrite Test strip Ql (U)on 01-28-2022 Nitrite Ql (U) Negative Negative [facility] Work Phone: No Panel Informationon 01-28 Urine Microalbumin/Creatinine Ratio 77.0 mg/g CRE <30 [facility] Work Phone: Estimated GFR (MDRD) Amer 56 mL/min >60 [facility] Work Phone: Comment on above: GFR Calc Estimated GFR (MDRD) Non-Af Amer 46 mL/min >60 [facility] Work Phone: Comment on above: Non- GFR Calc Platelets bldon 01-28-2022 Platelets (Bld) [#/Vol] 240 10*3/uL 150-450 [facility] Work Phone: Protein Test strip Ql (U)on 01-28-2022 Protein Ql (U) Negative Negative [facility] Work Phone: Serum or plasma albumin you urement (mass/volume)on 01-28-2022 Albumin [Mass/Vol] 3.2 g/dL 3.2-5.0 [facility] Work Phone: Serum or plasma calcium you urement (mass/volume)on 01-28-2022 Calcium [Mass/Vol] 8.4 mg/dL 8.5-10.1 [facility] Work Phone: Serum or plasma creatinine m easurement (mass/volume)on 01-28-2022 Creatinine [Mass/Vol] 1.63 mg/dL 0.70-1.30 [facility] Work Phone: Comment on above: The validity of the calculated GFR & GFRAA in patients over 70 years has not been determined. Clinical correlation is essential. Serum or plasma urea nitroge n measurement (mass/volume)on 01-28-2022 Urea nitrogen [Mass/Vol] 24 mg/dL 7-18 [facility] Work Phone: Squamous epithelial cells de tection in urine sediment by light microscopyon 01-28-2022 Epithelial cells.squamous LM Ql (Urine sed) 0-5 SEEN /hpf 0-5 [facility] Work Phone: Thin prep Papanicolaou smear with manual screeningon 01-28-2022 Thin prep Papanicolaou smear with manual screening 28.5 mg/L NO RANGE EST. [facility] Work Phone: Urine blood detectionon 01-12 RBC Ql (U) Negative Negative [facility] Work Phone: RBC Ql (U) 0 SEEN /hpf 0-5 [facility] Work Phone: Urine clarityon 01-28-2022 Clarity (U) Sl. Cloudy Clear [facility] Work Phone: Urine color determinationon 01-28-2022 Color (U) Yellow Yellow [facility] Work Phone: Urine creatinine measurement (mass/volume)on 01-28-2022 Creatinine (U) [Mass/Vol] 37.00 mg/dL NO RANGE EST. [facility] Work Phone: Urine glucose detectionon Glucose Ql (U) Normal mg/dl Normal [facility] Work Phone: Urine leukocyte esterase det ection by dipstickon 01-28-2022 Leukocyte esterase Test strip Ql (U) Negative Negative [facility] Work Phone: Urine pHon 01-28-2022 pH (U) 7.0 [pH] 5.0 - 8.0 [facility] Work Phone: Urine sediment bacteria coun t by microscopy (number/high power field)on 01-28-2022 Bacteria LM.HPF (Urine sed) [#/Area] 0 /[HPF] None Seen [facility] Work Phone: Urine specific gravity measu rementon 01-28-2022 Specific gravity (U) [Rel density] 1.010 1.002-1.030 [facility] Work Phone: Urobilinogen Auto test strip Ql (U)on 01-28-2022 Urobilinogen Ql (U) Normal mg/dl Normal [facility] Work Phone: No Panel Informationon 01-25 [place] Level 0.50 mmol/L 0.60-1.20 [facility] Work Phone: Basophil percentageon 2021 Cholesterol [Mass/Vol] 140 mg/dL <200 [facility] Work Phone: Comment on above: <200 mg/dL Desirable 200-240 mg/dL Borderline >240 mg/dL High Risk Triglyceride [Mass/Vol] 247 mg/dL <199 [facility] Work Phone: Comment on above: The drugs N-Acetylcy steine and Metamizole may falsely depress this assay.Serum Triglycerides Reference Interval Normal <150 mg/dL Borderline high 150 - 199 mg/dL High 200 - 499 mg/dL Very High > or = 500 mg/dL No Panel Informationon 01-04 [place] Level 0.50 mmol/L 0.60-1.20 [facility] Work Phone: Serum or plasma cholesterol in HDL measurement (mass/volume)on 01-04-2022 Cholesterol in HDL [Mass/Vol] 34 mg/dL >40 [facility] Work Phone: Comment on above: The drugs N-Acetylcy steine and Metamizole may falsely depress this assay. Reference Range HDL <40 mg/dL Low HDL Cholesterol HDL >or= 60 mg/dL High HDL Cholesterol Serum or plasma cholesterol in VLDL measurement (mass/volume)on 01-04-2022 Cholesterol in VLDL [Mass/Vol] 49 mg/dL 5-40 [facility] Work Phone: Serum or plasma low density lipoprotein (LDL) cholesterol measurement (mass/volume)on 01-04-2022 Cholesterol in LDL [Mass/Vol] 57 mg/dL 0-130 [facility] Work Phone: No Panel Informationon 12-07 [place] Level 0.50 mmol/L 0.60-1.20 [facility] Work Phone: [phone] Absolute lymphocyte counton 12-03-2021 Lymphocytes Auto (Unsp spec) [#/Vol] 2.02 10*3/uL 0.83-4.51 [facility] Work Phone: Basophil percentageon 2021 Basophils/100 WBC (Bld) 1.1 % 0-1 [facility] Work Phone: Chloride [Moles/Vol] 108 mmol/L 98-107 [facility] Work Phone: Eosinophils/100 WBC (Bld) 2.9 % 0-5 [facility] Work Phone: Glucose [Mass/Vol] 118 mg/dL 74-106 [facility] Work Phone: Comment on above: Fasting Glucose resu lt from 100 to 125 mg/dL suggests IMPAIRED HOMEOSTASIS per A.D.A. criteria. Neutrophils (Bld) [#/Vol] 4.3 10*3/uL 2.0-7.7 [facility] Work Phone: [phone] Neutrophils/100 WBC (Bld) 57.2 % 47-70 [facility] Work Phone: [phone] Potassium [Moles/Vol] 3.9 mmol/L 3.5-5.1 [facility] Work Phone: Sodium [Moles/Vol] 140 mmol/L 136-145 [facility] Work Phone: WBC (Bld) [#/Vol] 7.5 10*3/uL 4.4-11.0 [facility] Work Phone: Bilirubin Test strip Ql (U)o n 12-03-2021 Bilirubin Ql (U) Negative Negative [facility] Work Phone: Blood erythrocytes count (nu mber/volume)on 12-03-2021 RBC (Bld) [#/Vol] 4.70 10*6/uL 4.6-6.2 [facility] Work Phone: Blood hemoglobin measurement (mass/volume)on 12-03-2021 Hemoglobin (Bld) [Mass/Vol] 13.7 g/dL 13.0-16.5 [facility] Work Phone: Blood lymphocytes/100 leukoc yteson 12-03-2021 Lymphocytes/100 WBC (Bld) 27.1 % 19-41 [facility] Work Phone: Blood monocytes/100 leukocyt eson 12-03-2021 Monocytes/100 WBC (Bld) 11.0 % 0-10 [facility] Work Phone: Blood platelet mean volumeon 12-03-2021 Platelet mean volume (Bld) [Entitic vol] 9.1 fL 6.2-12.0 [facility] Work Phone: Culture, urineon 12-03-2021 Bacteria identified Cx Nom (U) Culture exhibits no growth. [facility] Work Phone: Determination of erythrocyte mean corpuscular volume (MCV)on 12-03-2021 MCV (RBC) [Entitic vol] 88.9 fL 80-94 [facility] Work Phone: Hematocrit Auto (Bld) [Volum e fraction]on 12-03-2021 Hematocrit (Bld) [Volume fraction] 41.8 % 40-54 [facility] Work Phone: Ketones Test strip Ql (U)on 12-03-2021 Ketones Ql (U) Negative Negative [facility] Work Phone: Laboratory - Chemistry and C hemistry - challengeon 12-03-2021 CO2 [Moles/Vol] 27.0 mmol/L 21.0-32.0 [facility] Work Phone: Urea nitrogen/Creatinine [Mass ratio] 9.7 mg/mg 10-20 [facility] Work Phone: Laboratory - Hematology and Cell countson 12-03-2021 Erythrocyte distribution width (RBC) [Entitic vol] 43.4 fL 35.1-43.9 [facility] Work Phone: Erythrocyte distribution width (RBC) [Ratio] 13.2 % 11.6-14.6 [facility] Work Phone: Immature granulocytes/100 WBC (Bld) 0.700 % 0.0-0.9 [facility] Work Phone: Comment on above: IG% - Immature Granu locytes (promyelocytes, myelocytes and metamyelocytes) > 1% indicates that a LEFT SHIFT is Present. MCH (RBC) [Entitic mass] 29.1 pg 27.0-32.0 [facility] Work Phone: Nucleated RBC/100 WBC (Bld) [Ratio] 0 % 0-5 [facility] Work Phone: MCHC Auto (RBC) [Mass/Vol]on 12-03-2021 MCHC (RBC) [Mass/Vol] 32.8 g/dL 32-36 [facility] Work Phone: Nitrite Test strip Ql (U)on 12-03-2021 Nitrite Ql (U) Negative Negative [facility] Work Phone: No Panel Informationon 12-03 Estimated GFR (MDRD) Amer 43 mL/min >60 [facility] Work Phone: Comment on above: GFR Calc Estimated GFR (MDRD) Non-Af Amer 35 mL/min >60 [facility] Work Phone: Comment on above: Non- GFR Calc [place] Level 0.50 mmol/L 0.60-1.20 [facility] Work Phone: Platelets bldon 12-03-2021 Platelets (Bld) [#/Vol] 230 10*3/uL 150-450 [facility] Work Phone: Protein Test strip Ql (U)on 12-03-2021 Protein Ql (U) Negative Negative [facility] Work Phone: Serum or plasma calcium you urement (mass/volume)on 12-03-2021 Calcium [Mass/Vol] 8.9 mg/dL 8.5-10.1 [facility] Work Phone: Serum or plasma creatinine m easurement (mass/volume)on 12-03-2021 Creatinine [Mass/Vol] 2.07 mg/dL 0.70-1.30 [facility] Work Phone: Comment on above: The validity of the calculated GFR & GFRAA in patients over 70 years has not been determined. Clinical correlation is essential. Serum or plasma urea nitroge n measurement (mass/volume)on 12-03-2021 Urea nitrogen [Mass/Vol] 20 mg/dL 7-18 [facility] Work Phone: Thin prep Papanicolaou smear with manual screeningon 12-03-2021 Thin prep Papanicolaou smear with manual screening 5 5-15 [facility] Work Phone: Urine blood detectionon 11-15 RBC Ql (U) Negative Negative [facility] Work Phone: Urine clarityon 12-03-2021 Clarity (U) Clear Clear [facility] Work Phone: Urine color determinationon 12-03-2021 Color (U) Yellow Yellow [facility] Work Phone: Urine glucose detectionon Glucose Ql (U) Normal mg/dl Normal [facility] Work Phone: Urine leukocyte esterase det ection by dipstickon 12-03-2021 Leukocyte esterase Test strip Ql (U) Negative Negative [facility] Work Phone: Urine pHon 12-03-2021 pH (U) 7.0 [pH] [facility] Work Phone: Urine specific gravity measu rementon 12-03-2021 Specific gravity (U) [Rel density] 1.010 [facility] Work Phone: Urobilinogen Auto test strip Ql (U)on 12-03-2021 Urobilinogen Ql (U) Normal mg/dl Normal [facility] Work Phone: No Panel Informationon 11-09 [place] Level 0.40 mmol/L 0.60-1.20 [facility] Work Phone: Absolute lymphocyte counton 11-05-2021 Lymphocytes Auto (Unsp spec) [#/Vol] 2.12 10*3/uL 0.83-4.51 [facility] Work Phone: Basophil percentageon 2020 Chloride [Moles/Vol] 110 mmol/L 98-107 [facility] Work Phone: Eosinophils/100 WBC (Bld) 2.8 % 0-5 [facility] Work Phone: Glucose [Mass/Vol] 132 mg/dL 74-106 [facility] Work Phone: Comment on above: Fasting Glucose resu lt greater than or equal to 126 mg/dL suggests DIABETES MELLITUS per A.D.A. criteria.Please note revised GLUCOSE reference range effective 2017. Neutrophils (Bld) [#/Vol] 5.7 10*3/uL 2.0-7.7 [facility] Work Phone: Potassium [Moles/Vol] 4.0 mmol/L 3.5-5.1 [facility] Work Phone: Sodium [Moles/Vol] 143 mmol/L 136-145 [facility] Work Phone: WBC (Bld) [#/Vol] 9.3 10*3/uL 4.4-11.0 [facility] Work Phone: Basophil percentage 10-25 SEEN /hpf [facility] Work Phone: Bilirubin Test strip Ql (U)o n 11-05-2021 Bilirubin Ql (U) Negative Negative [facility] Work Phone: Blood erythrocytes count (nu mber/volume)on 11-05-2021 RBC (Bld) [#/Vol] 4.57 10*6/uL 4.6-6.2 [facility] Work Phone: Blood hemoglobin measurement (mass/volume)on 11-05-2021 Hemoglobin (Bld) [Mass/Vol] 13.4 g/dL 13.0-16.5 [facility] Work Phone: Blood lymphocytes/100 leukoc yteson 11-05-2021 Lymphocytes/100 WBC (Bld) 22.9 % 19-41 [facility] Work Phone: Blood monocytes/100 leukocyt eson 11-05-2021 Monocytes/100 WBC (Bld) 10.9 % 0-10 [facility] Work Phone: Blood platelet mean volumeon 11-05-2021 Platelet mean volume (Bld) [Entitic vol] 9.1 fL 6.2-12.0 [facility] Work Phone: Culture, urineon 11-05-2021 Bacteria identified Cx Nom (U) Streptococcus mitis/ oralis [facility] Work Phone: Determination of erythrocyte mean corpuscular volume (MCV)on 11-05-2021 MCV (RBC) [Entitic vol] 89.5 fL 80-94 [facility] Work Phone: Hematocrit Auto (Bld) [Volum e fraction]on 11-05-2021 Hematocrit (Bld) [Volume fraction] 40.9 % 40-54 [facility] Work Phone: Ketones Test strip Ql (U)on 11-05-2021 Ketones Ql (U) Negative Negative [facility] Work Phone: Laboratory - Chemistry and C hemistry - challengeon 11-05-2021 CO2 [Moles/Vol] 28.0 mmol/L 21.0-32.0 [facility] Work Phone: Urea nitrogen/Creatinine [Mass ratio] 11.6 mg/mg 10-20 [facility] Work Phone: Laboratory - Hematology and Cell countson 11-05-2021 Basophils/100 WBC (Unsp spec) 0.9 % 0-1 [facility] Work Phone: Erythrocyte distribution width (RBC) [Entitic vol] 43.5 fL 35.1-43.9 [facility] Work Phone: [phone] Erythrocyte distribution width (RBC) [Ratio] 13.3 % 11.6-14.6 [facility] Work Phone: Immature granulocytes/100 WBC (Bld) 0.600 % 0.0-0.9 [facility] Work Phone: Comment on above: IG% - Immature Granu locytes (promyelocytes, myelocytes and metamyelocytes) > 1% indicates that a LEFT SHIFT is Present. MCH (RBC) [Entitic mass] 29.3 pg 27.0-32.0 [facility] Work Phone: Neutrophils/100 WBC (Bld) 61.9 % 47-70 [facility] Work Phone: Nucleated RBC/100 WBC (Bld) [Ratio] 0 % 0-5 [facility] Work Phone: MCHC Auto (RBC) [Mass/Vol]on 11-05-2021 MCHC (RBC) [Mass/Vol] 32.8 g/dL 32-36 [facility] Work Phone: Mucus LM Ql (Urine sed)on Mucus Ql (Urine sed) 0 SEEN /hpf [facility] Work Phone: Nitrite Test strip Ql (U)on 11-05-2021 Nitrite Ql (U) Negative Negative [facility] Work Phone: No Panel Informationon 11-05 Estimated GFR (MDRD) Amer 47 mL/min >60 [facility] Work Phone: Comment on above: GFR Calc Estimated GFR (MDRD) Non-Af Amer 39 mL/min >60 [facility] Work Phone: Comment on above: Non- GFR Calc Platelets bldon 11-05-2021 Platelets (Bld) [#/Vol] 218 10*3/uL 150-450 [facility] Work Phone: Protein Test strip Ql (U)on 11-05-2021 Protein Ql (U) 15 mg/dl Negative [facility] Work Phone: Serum or plasma albumin you urement (mass/volume)on 11-05-2021 Albumin [Mass/Vol] 2.7 g/dL 3.2-5.0 [facility] Work Phone: Serum or plasma calcium you urement (mass/volume)on 11-05-2021 Calcium [Mass/Vol] 8.7 mg/dL 8.5-10.1 [facility] Work Phone: Serum or plasma creatinine m easurement (mass/volume)on 11-05-2021 Creatinine [Mass/Vol] 1.90 mg/dL 0.70-1.30 [facility] Work Phone: Comment on above: The validity of the calculated GFR & GFRAA in patients over 70 years has not been determined. Clinical correlation is essential. Serum or plasma urea nitroge n measurement (mass/volume)on 11-05-2021 Urea nitrogen [Mass/Vol] 22 mg/dL 7-18 [facility] Work Phone: Squamous epithelial cells de tection in urine sediment by light microscopyon 11-05-2021 Epithelial cells.squamous LM Ql (Urine sed) 0-5 SEEN /hpf [facility] Work Phone: Thin prep Papanicolaou smear with manual screeningon 11-05-2021 Thin prep Papanicolaou smear with manual screening 5 5-15 [facility] Work Phone: Urine blood detectionon 10-15 RBC Ql (U) Negative Negative [facility] Work Phone: RBC Ql (U) 0 SEEN /hpf [facility] Work Phone: Urine clarityon 11-05-2021 Clarity (U) Sl. Cloudy Clear [facility] Work Phone: Urine color determinationon 11-05-2021 Color (U) Yellow Yellow [facility] Work Phone: Urine creatinine measurement (mass/volume)on 11-05-2021 Creatinine (U) [Mass/Vol] 169.00 mg/dL NO RANGE EST. [facility] Work Phone: Urine glucose detectionon Glucose Ql (U) Normal mg/dl Normal [facility] Work Phone: Urine leukocyte esterase det ection by dipstickon 11-05-2021 Leukocyte esterase Test strip Ql (U) 100 /ul Negative [facility] Work Phone: Urine pHon 11-05-2021 pH (U) 6.0 [pH] [facility] Work Phone: Urine protein measurement (m ass/volume)on 11-05-2021 Protein (U) [Mass/Vol] 21.0 mg/dL 0.0-11.8 [facility] Work Phone: Urine protein/creatinine mas s ratioon 11-05-2021 Protein/Creatinine (U) [Mass ratio] 124 mg/g CRE 0-200 [facility] Work Phone: Urine sediment bacteria coun t by microscopy (number/high power field)on 11-05-2021 Bacteria LM.HPF (Urine sed) [#/Area] 0 /[HPF] None Seen [facility] Work Phone: Urine specific gravity measu rementon 11-05-2021 Specific gravity (U) [Rel density] 1.020 [facility] Work Phone: Urobilinogen Auto test strip Ql (U)on 11-05-2021 Urobilinogen Ql (U) Normal mg/dl Normal [facility] Work Phone: CBC Auto Differentialon 10-15 Erythrocyte distribution width (RBC) [Ratio] 14.5 % 11.5 - 14.5 % [place] Hematocrit (Bld) [Volume fraction] 42.1 % 40 - 52 % [place] Hemoglobin (Bld) [Mass/Vol] 13.8 g/dL 13 - 18 g/dL [place] Interpretation and review of laboratory results Abnormal [place] MCH (RBC) [Entitic mass] 28.8 pg 26 - 34 pg [place] MCHC (RBC) [Mass/Vol] 32.7 % 32 - 36 % [place] MCV (RBC) [Entitic vol] 88.1 fL 80 - 98 fL [place], [place] Platelet mean volume (Bld) [Entitic vol] 7.9 fL 7.4 - 10.4 fL [place] Platelets (Bld) [#/Vol] 356 10*3/uL 140 - 440 10*3/uL [place] RBC (Bld) [#/Vol] 4.78 10*6/uL 4.4 - 5.9 10*6/uL [place] WBC (Bld) [#/Vol] 16.4 10*3/uL High 3.6 - 10.7 10*3/uL [place] Test Performed by [facility], [address] [place] [address] [place] Comp Panel with Mg Reflexon 11-04-2020 Calcium [Mass/Vol] 8.9 mg/dL Normal 8.4-10.4 [facility] Comment on above: Performed By: #### H EMOG, CMP3M, CRP2, LDH3, FIBGN, DDI2, APTT, FERR3 #### [facility] [address] [place] [address] ALP [Catalytic activity/Vol] 83 U/L Normal 38-126 [facility] Comment on above: Performed By: #### H EMOG, CMP3M, CRP2, LDH3, FIBGN, DDI2, APTT, FERR3 #### [facility] [address] [place] [place] [address] ALT [Catalytic activity/Vol] 133 U/L High 0-49 [facility] Comment on above: Result Comment: The ALT test is performed by an updated assay method. Please note that the reference intervals have been changed and are now sex specific. Performed By: #### H EMOG, CMP3M, CRP2, LDH3, FIBGN, DDI2, APTT, FERR3 #### [facility] [address] [place] [address] Anion gap [Moles/Vol] 9 Normal [facility] Comment on above: Performed By: #### H EMOG, CMP3M, CRP2, LDH3, FIBGN, DDI2, APTT, FERR3 #### [facility] [address] [place] [address] AST [Catalytic activity/Vol] 39 U/L Normal 15-46 [facility] Comment on above: Performed By: #### H EMOG, CMP3M, CRP2, LDH3, FIBGN, DDI2, APTT, FERR3 #### [facility] [address] [place] [address] Bilirubin [Mass/Vol] 0.6 mg/dL Normal 0.2-1.3 [facility] Comment on above: Performed By: #### H EMOG, CMP3M, CRP2, LDH3, FIBGN, DDI2, APTT, FERR3 #### [facility] [address] [place] [address] CO2 [Moles/Vol] 20 mmol/L Low 22-30 [facility] Comment on above: Performed By: #### H EMOG, CMP3M, CRP2, LDH3, FIBGN, DDI2, APTT, FERR3 #### [facility] [address] [place] [address] Glucose [Mass/Vol] 140 mg/dL High 70-100 [facility] Comment on above: Performed By: #### H EMOG, CMP3M, CRP2, LDH3, FIBGN, DDI2, APTT, FERR3 #### [facility] [address] [place] [address] Protein [Mass/Vol] 6.1 g/dL Low 6.3-8.2 [facility] Comment on above: Performed By: #### H EMOG, CMP3M, CRP2, LDH3, FIBGN, DDI2, APTT, FERR3 #### [facility] [address] [place] [address] Urea nitrogen [Mass/Vol] 41 mg/dL High 7-20 [facility] Comment on above: Performed By: #### H EMOG, CMP3M, CRP2, LDH3, FIBGN, DDI2, APTT, FERR3 #### [facility] [address] [place] [address] Creatinine [Mass/Vol] 1.84 mg/dL High 0.52-1.25 [facility] Comment on above: Performed By: #### H EMOG, CMP3M, CRP2, LDH3, FIBGN, DDI2, APTT, FERR3 #### [facility] [address] [place] [address] GFR/1.73 sq M predicted among blacks MDRD (S/P/Bld) [Vol rate/Area] 46.0 mL/min/{1.73_m2} Abnormal >60 [facility] Comment on above: Performed By: #### H EMOG, CMP3M, CRP2, LDH3, FIBGN, DDI2, APTT, FERR3 #### [facility] [address] [place] [address] GFR/1.73 sq M predicted among non-blacks MDRD (S/P/Bld) [Vol rate/Area] 39.7 mL/min/{1.73_m2} Abnormal >60 [facility] Comment on above: Result Comment: KDIG [...] LDH3, FIBGN, DDI2, APTT, FERR3 #### [facility] [address] [place] [address] Albumin [Mass/Vol] 3.4 g/dL Low 3.5-5.0 [facility] Comment on above: Performed By: #### H EMOG, CMP3M, CRP2, LDH3, FIBGN, DDI2, APTT, FERR3 #### [facility] [address] [place] [address] Chloride [Moles/Vol] 106 mmol/L Normal 98-107 [facility] Comment on above: Performed By: #### H EMOG, CMP3M, CRP2, LDH3, FIBGN, DDI2, APTT, FERR3 #### [facility] [address] [place] [address] Potassium [Moles/Vol] 4.3 mmol/L Normal 3.5-5.1 [facility] Comment on above: Performed By: #### H EMOG, CMP3M, CRP2, LDH3, FIBGN, DDI2, APTT, FERR3 #### [facility] [address] [place] [address] Sodium [Moles/Vol] 134 mmol/L Low 135-145 [facility] Comment on above: Performed By: #### H EMOG, CMP3M, CRP2, LDH3, FIBGN, DDI2, APTT, FERR3 #### [facility] [address] [place] [address] Comprehensive Metabolic Pane l w/ Reflex to MGon 11-04-2020 Albumin [Mass/Vol] 3.4 g/dL Low 3.5 - 5 g/dL [place] ALP [Catalytic activity/Vol] 83 U/L 38 - 126 U/L [place] ALT [Catalytic activity/Vol] 133 U/L High 0 - 49 U/L [place] Comment on above: The ALT test is perf ormed by an updated assay method. Please note that the reference intervals have been changed and are now sex specific. Anion gap [Moles/Vol] 9 mmol/L [place] AST [Catalytic activity/Vol] 39 U/L 15 - 46 U/L [place] Bilirubin Ql (U) 0.6 mg/dL 0.2 - 1.3 mg/dL [place] Calcium [Mass/Vol] 8.9 mg/dL 8.4 - 10. 4 mg/dL [place] Chloride [Moles/Vol] 106 mmol/L 98 - 10 7 mmol/L [place] CO2 [Moles/Vol] 20 mmol/L Low 22 - 30 mmol/L [place] Creatinine [Mass/Vol] 1.84 mg/dL High 0.52 - 1.25 mg/dL [place] EGFR IF NonAfrican [place]altese 39.7 mL/min Abnormal >60 [place] Comment on above: KDIGO guidelines pro [...] serum creatinine in children is the Bedside Agrcia equation. It is less accurate in patients with extremes of muscle mass, restriction of dietary protein, ingestion of creatine, extra-renal metabolism of creatinine, or treatment with medications that affect renal tubular creatinine secretion. GFR/1.73 sq M predicted among blacks MDRD (S/P/Bld) [Vol rate/Area] 46.0 mL/min/{1.73_m2} Abnormal >60 [place] Glucose [Mass/Vol] 140 mg/dL High 70 - 100 mg/dL [place] Interpretation and review of laboratory results Abnormal [place] Potassium [Moles/Vol] 4.3 mmol/L 3.5 - 5.1 mmol/L [place] Protein [Mass/Vol] 6.1 g/dL Low 6.3 - 8.2 g/dL [place] Sodium [Moles/Vol] 134 mmol/L Low 135 - 145 mmol/L [place] Urea nitrogen [Mass/Vol] 41 mg/dL High 7 - 20 mg/dL [place] Test Performed by [facility], [address] [place] [address] [place] Hemogram w/ Autodiffon 11-04 Erythrocyte distribution width (RBC) [Ratio] 14.5 % Normal 11.5-14.5 [facility] Comment on above: Performed By: #### H EMOG, CMP3M, CRP2, LDH3, FIBGN, DDI2, APTT, FERR3 #### [facility] [address] [place] [address] Hematocrit (Bld) [Volume fraction] 42.1 % Normal 40.0-52.0 [facility] Comment on above: Performed By: #### H EMOG, CMP3M, CRP2, LDH3, FIBGN, DDI2, APTT, FERR3 #### [facility] [address] [place] [address] Hemoglobin (Bld) [Mass/Vol] 13.8 g/dL Normal 13.0-18.0 [facility] Comment on above: Performed By: #### H EMOG, CMP3M, CRP2, LDH3, FIBGN, DDI2, APTT, FERR3 #### [facility] [address] [place] [address] MCH (RBC) [Entitic mass] 28.8 pg Normal 26.0-34.0 [facility] Comment on above: Performed By: #### H EMOG, CMP3M, CRP2, LDH3, FIBGN, DDI2, APTT, FERR3 #### [facility] [address] [place] [address] MCHC (RBC) [Mass/Vol] 32.7 % Normal 32.0-36.0 [facility] Comment on above: Performed By: #### H EMOG, CMP3M, CRP2, LDH3, FIBGN, DDI2, APTT, FERR3 #### [facility] [address] [place] [address] MCV (RBC) [Entitic vol] 88.1 fL Normal 80.0-98.0 [facility] Comment on above: Performed By: #### H EMOG, CMP3M, CRP2, LDH3, FIBGN, DDI2, APTT, FERR3 #### [facility] [address] [place] [address] Platelet mean volume (Bld) [Entitic vol] 7.9 fL Normal 7.4-10.4 [facility] Comment on above: Performed By: #### H EMOG, CMP3M, CRP2, LDH3, FIBGN, DDI2, APTT, FERR3 #### [facility] [address] [place] [address] Platelets (Bld) [#/Vol] 356 10*3/uL Normal 140-440 [facility] Comment on above: Performed By: #### H EMOG, CMP3M, CRP2, LDH3, FIBGN, DDI2, APTT, FERR3 #### [facility] [address] [place] [address] RBC (Bld) [#/Vol] 4.78 10*6/uL Normal 4.40-5.90 [facility] Comment on above: Performed By: #### H EMOG, CMP3M, CRP2, LDH3, FIBGN, DDI2, APTT, FERR3 #### [facility] [address] [place] [address] WBC (Bld) [#/Vol] 16.4 10*3/uL High 3.6-10.7 [facility] Comment on above: Performed By: #### H EMOG, CMP3M, CRP2, LDH3, FIBGN, DDI2, APTT, FERR3 #### [facility] [facility] [address] [place] [address] Manual Diffon 11-04-2020 Abs Baso Cnt 0.0 10*3/uL Normal 0.0-0.2 [facility] Comment on above: Performed By: #### H EMOG, CMP3M, CRP2, LDH3, FIBGN, DDI2, APTT, FERR3 #### [facility] [address] [place] [address] Abs Eosin Cnt 0.0 10*3/uL Normal 0.0-0.5 [facility] Comment on above: Performed By: #### H EMOG, CMP3M, CRP2, LDH3, FIBGN, DDI2, APTT, FERR3 #### [facility] [address] [place] [address] Abs Lymph Cnt 1.0 10*3/uL Low 1.1-4.5 [facility] Comment on above: Performed By: #### H EMOG, CMP3M, CRP2, LDH3, FIBGN, DDI2, APTT, FERR3 #### [facility] [address] [place] [address] Abs Monocyte Cnt 1.3 10*3/uL High 0.2-1.1 [facility] Comment on above: Performed By: #### H EMOG, CMP3M, CRP2, LDH3, FIBGN, DDI2, APTT, FERR3 #### [facility] [address] [place] [address] Abs Neutrophile Cnt 13.1 10*3/uL High 2.2-8.2 [facility] Comment on above: Performed By: #### H EMOG, CMP3M, CRP2, LDH3, FIBGN, DDI2, APTT, FERR3 #### [facility] [address] [place] [facility] Anisocytosis Ql (Bld) Slight Normal [facility] Comment on above: Performed By: #### H EMOG, CMP3M, CRP2, LDH3, FIBGN, DDI2, APTT, FERR3 #### [facility] [address] [place] [address] Bands 2 % Normal 0-3 [facility] Comment on above: Performed By: #### H EMOG, CMP3M, CRP2, LDH3, FIBGN, DDI2, APTT, FERR3 #### [facility] [address] [place] [address] Basophils 0 % Normal 0-2 [facility] Comment on above: Performed By: #### H EMOG, CMP3M, CRP2, LDH3, FIBGN, DDI2, APTT, FERR3 #### [facility] [address] [place] [address] [place] Cells Slight Normal [facility] Comment on above: Performed By: #### H EMOG, CMP3M, CRP2, LDH3, FIBGN, DDI2, APTT, FERR3 #### [facility] [address] [place] [address] Cells counted 100 Normal [facility] Comment on above: Performed By: #### H EMOG, CMP3M, CRP2, LDH3, FIBGN, DDI2, APTT, FERR3 #### [facility] [address] [place] [address] Eosinophils 0 % Low 1-6 [facility] Comment on above: Performed By: #### H EMOG, CMP3M, CRP2, LDH3, FIBGN, DDI2, APTT, FERR3 #### [facility] [address] [place] [address] Lymphocytes 6 % Low 20-40 [facility] Comment on above: Performed By: #### H EMOG, CMP3M, CRP2, LDH3, FIBGN, DDI2, APTT, FERR3 #### [facility] [address] [place] [address] Metamyelocytes 5 % Abnormal <1 [facility] Comment on above: Performed By: #### H EMOG, CMP3M, CRP2, LDH3, FIBGN, DDI2, APTT, FERR3 #### [facility] [address] [place] [address] Monocytes 8 % Normal 2-10 [facility] Comment on above: Performed By: #### H EMOG, CMP3M, CRP2, LDH3, FIBGN, DDI2, APTT, FERR3 #### [facility] [address] [place] [address] Myelocytes 1 % Abnormal <1 [facility] Comment on above: Performed By: #### H EMOG, CMP3M, CRP2, LDH3, FIBGN, DDI2, APTT, FERR3 #### [facility] [address] [place] [address] Poikilocytosis Slight Normal [facility] Comment on above: Performed By: #### H EMOG, CMP3M, CRP2, LDH3, FIBGN, DDI2, APTT, FERR3 #### [facility] [address] [place] [place] [address] RBC morphology finding Nom (Bld) ABNORMAL Normal [facility] Comment on above: Performed By: #### H EMOG, CMP3M, CRP2, LDH3, FIBGN, DDI2, APTT, FERR3 #### [facility] [address] [place] [place] [address] Seg Neutrophils 78 % Normal 40-80 [facility] Comment on above: Performed By: #### H EMOG, CMP3M, CRP2, LDH3, FIBGN, DDI2, APTT, FERR3 #### [facility] [address] [place] [address] Manual Differentialon 2019 Absolute Baso # 0.0 10*3/uL 0 - 0.2 10*3/uL [place] Absolute Eos # 0.0 10*3/uL 0 - 0.5 10*3/uL [place] Absolute Lymph # 1.0 10*3/uL Low 1.1 - 4.5 10*3/uL [place] Absolute [place] # 1.3 10*3/uL High 0.2 - 1.1 10*3/uL [place] Absolute Neut # 13.1 10*3/uL High 2.2 - 8.2 10*3/uL [place] Anisocytosis Ql (Bld) Slight [facility], [place] Bands 2 % 0 - 3 % [facility], [place] Basophils 0 % 0 - 2 % [facility], [place]anya Cells Slight [place] Eosinophils 0 % Low 1 - 6 % [place] Interpretation and review of laboratory results Abnormal [place] Lymphocytes 6 % Low 20 - 40 % [place] Metamyelocytes 5 % Abnormal <1 [place] Monocytes 8 % 2 - 10 % [place] Myelocytes 1 % Abnormal <1 [place] Poikilocytes Slight [place] RBC morphology finding Nom (Bld) ABNORMAL [place] Seg Neutrophils 78 % 40 - 80 % [place] TOTAL CELLS COUNTED 100 [place] Test Performed by [facility], [address] [place], [place] [address] [place] Add On Lab Teston 11-03-2020 Sodium [Moles/Vol] Accepted [place] Comment on above: Specimen available & acceptable for analysis. Test Performed by [facility], [address] [place], [place] [address] [place] Add on test from HISon 11-03 Add on test from HIS Accepted Normal [facility] Comment on above: Result Comment: Spec imen available & acceptable for analysis. Performed By: #### H EMOG, CMP3M, CRP2, LDH3, FIBGN, DDI2, APTT, FERR3 #### [facility] [address] [place] [address] CBC Auto Differentialon 10-15 Erythrocyte distribution width (RBC) [Ratio] 14.3 % 11.5 - 14.5 % [place] Hematocrit (Bld) [Volume fraction] 39.0 % Low 40 - 52 % [place] Hemoglobin (Bld) [Mass/Vol] 12.8 g/dL Low 13 - 18 g/dL [place] Interpretation and review of laboratory results Abnormal [place] MCH (RBC) [Entitic mass] 28.7 pg 26 - 34 pg [place] MCHC (RBC) [Mass/Vol] 32.8 % 32 - 36 % [place] MCV (RBC) [Entitic vol] 87.6 fL 80 - 98 fL [place] Platelet mean volume (Bld) [Entitic vol] 7.5 fL 7.4 - 10.4 fL [place] Platelets (Bld) [#/Vol] 332 10*3/uL 140 - 440 10*3/uL [place] RBC (Bld) [#/Vol] 4.45 10*6/uL 4.4 - 5.9 10*6/uL [place] WBC (Bld) [#/Vol] 15.6 10*3/uL High 3.6 - 10.7 10*3/uL [place] Test Performed by [facility], [address], [place], [place] [address] [place] CR Chest PA/LATon 11-03-2020 CR Chest PA/LAT Patient Name: REGGIE LEÓN Diagnostic Radiology ACCESSION EXAM DATE/TIME PROCEDURE ORDERING PROVIDER [id number] 11/03/2020 10:20 EST CR Chest PA and LAT MD EMILY, FARRUKH MCCORMICK CPT code 05440 Reason For Exam (CR Chest PA and [...] Date and Time: 11/03/2020 10:59 Normal [facility] Comp Panel with Mg Reflexon 11-03-2020 Calcium [Mass/Vol] 9.0 mg/dL Normal 8.4-10.4 [facility] Comment on above: Performed By: #### H EMOG, CMP3M, CRP2, LDH3, FIBGN, DDI2, APTT, FERR3 #### [facility] [address] [place] [address] Anion gap [Moles/Vol] 5 Normal [facility] Comment on above: Performed By: #### H EMOG, CMP3M, CRP2, LDH3, FIBGN, DDI2, APTT, FERR3 #### [facility] [address] [place] [address] Bilirubin [Mass/Vol] 0.7 mg/dL Normal 0.2-1.3 [facility] Comment on above: Performed By: #### H EMOG, CMP3M, CRP2, LDH3, FIBGN, DDI2, APTT, FERR3 #### [facility] [address] [place] [address] Creatinine [Mass/Vol] 2.08 mg/dL High 0.52-1.25 [facility] Comment on above: Performed By: #### H EMOG, CMP3M, CRP2, LDH3, FIBGN, DDI2, APTT, FERR3 #### [facility] [address] [place] [address] GFR/1.73 sq M predicted among blacks MDRD (S/P/Bld) [Vol rate/Area] 39.6 mL/min/{1.73_m2} Abnormal >60 [facility] Comment on above: Performed By: #### H EMOG, CMP3M, CRP2, LDH3, FIBGN, DDI2, APTT, FERR3 #### [facility] [address] [place] [address] GFR/1.73 sq M predicted among non-blacks MDRD (S/P/Bld) [Vol rate/Area] 34.2 mL/min/{1.73_m2} Abnormal >60 [facility] Comment on above: Result Comment: KDIG [...] LDH3, FIBGN, DDI2, APTT, FERR3 #### [facility] [address] [place] [address] Albumin [Mass/Vol] 3.4 g/dL Low 3.5-5.0 [facility] Comment on above: Performed By: #### H EMOG, CMP3M, CRP2, LDH3, FIBGN, DDI2, APTT, FERR3 #### [facility] [address] [place] [address] Chloride [Moles/Vol] 107 mmol/L Normal 98-107 [facility] Comment on above: Performed By: #### H EMOG, CMP3M, CRP2, LDH3, FIBGN, DDI2, APTT, FERR3 #### [facility] [address] [place] [address] Potassium [Moles/Vol] 3.8 mmol/L Normal 3.5-5.1 [facility] Comment on above: Performed By: #### H EMOG, CMP3M, CRP2, LDH3, FIBGN, DDI2, APTT, FERR3 #### [facility] [address] [place] [address] Sodium [Moles/Vol] 134 mmol/L Low 135-145 [facility] Comment on above: Performed By: #### H EMOG, CMP3M, CRP2, LDH3, FIBGN, DDI2, APTT, FERR3 #### [facility] [address] [place] [address] ALP [Catalytic activity/Vol] 83 U/L Normal 38-126 [facility], [place] Comment on above: Performed By: #### H EMOG, CMP3M, CRP2, LDH3, FIBGN, DDI2, APTT, FERR3 #### [facility] [address] [place] [address] ALT [Catalytic activity/Vol] 175 U/L High 0-49 [place] Comment on above: Result Comment: The ALT test is performed by an updated assay method. Please note that the reference intervals have been changed and are now sex specific. Performed By: #### H EMOG, CMP3M, CRP2, LDH3, FIBGN, DDI2, APTT, FERR3 #### [facility] [address] [place] [address] The ALT test is perf ormed by an updated assay method. Please note that the reference intervals have been changed and are now sex specific. AST [Catalytic activity/Vol] 63 U/L High 15-46 [place] Comment on above: Performed By: #### H EMOG, CMP3M, CRP2, LDH3, FIBGN, DDI2, APTT, FERR3 #### [facility] [address] [place] [address] CO2 [Moles/Vol] 21 mmol/L Low 22-30 [place] Comment on above: Performed By: #### H EMOG, CMP3M, CRP2, LDH3, FIBGN, DDI2, APTT, FERR3 #### [facility] [address] [place] [address] Glucose [Mass/Vol] 139 mg/dL High 70-100 [place] Comment on above: Performed By: #### H EMOG, CMP3M, CRP2, LDH3, FIBGN, DDI2, APTT, FERR3 #### [facility] [address] [place] [address] Protein [Mass/Vol] 5.9 g/dL Low 6.3-8.2 [place] Comment on above: Performed By: #### H EMOG, CMP3M, CRP2, LDH3, FIBGN, DDI2, APTT, FERR3 #### [facility] [address] [place] [address] Urea nitrogen [Mass/Vol] 43 mg/dL High 7-20 [place] Comment on above: Performed By: #### H EMOG, CMP3M, CRP2, LDH3, FIBGN, DDI2, APTT, FERR3 #### [facility] [address] [place] [address] Comprehensive Metabolic Pane l w/ Reflex to MGon 11-03-2020 Albumin [Mass/Vol] 3.4 g/dL Low 3.5 - 5 g/dL [place] Anion gap [Moles/Vol] 5 mmol/L [place] Bilirubin Ql (U) 0.7 mg/dL 0.2 - 1.3 mg/dL [place] Calcium [Mass/Vol] 9.0 mg/dL 8.4 - 10. 4 mg/dL [place] Chloride [Moles/Vol] 107 mmol/L 98 - 10 7 mmol/L [place] Creatinine [Mass/Vol] 2.08 mg/dL High 0.52 - 1.25 mg/dL [place] EGFR IF NonAfrican [place]ese 34.2 mL/min Abnormal >60 [place] Comment on above: KDIGO guidelines pro [...] (S/P/Bld) [Vol rate/Area] 39.6 mL/min/{1.73_m2} Abnormal >60 [place] Interpretation and review of laboratory results Abnormal [place] Potassium [Moles/Vol] 3.8 mmol/L 3.5 - 5.1 mmol/L [place] Sodium [Moles/Vol] 134 mmol/L Low 135 - 145 mmol/L [place] Test Performed by [facility], [address] [place] [address] [place] Hemogram w/ Autodiffon 11-03 Erythrocyte distribution width (RBC) [Ratio] 14.3 % Normal 11.5-14.5 [facility] Comment on above: Performed By: #### H EMOG, CMP3M, CRP2, LDH3, FIBGN, DDI2, APTT, FERR3 #### [facility] [address] [place] [address] Hematocrit (Bld) [Volume fraction] 39.0 % Low 40.0-52.0 [facility] Comment on above: Performed By: #### H EMOG, CMP3M, CRP2, LDH3, FIBGN, DDI2, APTT, FERR3 #### [facility] [address] [place] [address] Hemoglobin (Bld) [Mass/Vol] 12.8 g/dL Low 13.0-18.0 [facility] Comment on above: Performed By: #### H EMOG, CMP3M, CRP2, LDH3, FIBGN, DDI2, APTT, FERR3 #### [facility] [address] [place] [address] MCH (RBC) [Entitic mass] 28.7 pg Normal 26.0-34.0 [facility] Comment on above: Performed By: #### H EMOG, CMP3M, CRP2, LDH3, FIBGN, DDI2, APTT, FERR3 #### [facility] [address] [place] [address] MCHC (RBC) [Mass/Vol] 32.8 % Normal 32.0-36.0 [facility] Comment on above: Performed By: #### H EMOG, CMP3M, CRP2, LDH3, FIBGN, DDI2, APTT, FERR3 #### [facility] [address] [place] [address] MCV (RBC) [Entitic vol] 87.6 fL Normal 80.0-98.0 [facility] Comment on above: Performed By: #### H EMOG, CMP3M, CRP2, LDH3, FIBGN, DDI2, APTT, FERR3 #### [facility] [address] [place] [address] Platelet mean volume (Bld) [Entitic vol] 7.5 fL Normal 7.4-10.4 [facility] Comment on above: Performed By: #### H EMOG, CMP3M, CRP2, LDH3, FIBGN, DDI2, APTT, FERR3 #### [facility] [address] [place] [address] Platelets (Bld) [#/Vol] 332 10*3/uL Normal 140-440 [facility] Comment on above: Performed By: #### H EMOG, CMP3M, CRP2, LDH3, FIBGN, DDI2, APTT, FERR3 #### [facility] [address] [place] [address] RBC (Bld) [#/Vol] 4.45 10*6/uL Normal 4.40-5.90 [facility] Comment on above: Performed By: #### H EMOG, CMP3M, CRP2, LDH3, FIBGN, DDI2, APTT, FERR3 #### [facility] [address] [place] [address] WBC (Bld) [#/Vol] 15.6 10*3/uL High 3.6-10.7 [facility] Comment on above: Performed By: #### H EMOG, CMP3M, CRP2, LDH3, FIBGN, DDI2, APTT, FERR3 #### [facility] [address] [place] [address] Manual Diffon 11-03-2020 Abs Lymph Cnt 2.0 10*3/uL Normal 1.1-4.5 [facility] Comment on above: Performed By: #### H EMOG, CMP3M, CRP2, LDH3, FIBGN, DDI2, APTT, FERR3 #### [facility] [address] [place] [address] Abs Monocyte Cnt 2.2 10*3/uL High 0.2-1.1 [facility] Comment on above: Performed By: #### H EMOG, CMP3M, CRP2, LDH3, FIBGN, DDI2, APTT, FERR3 #### [facility] [address] [place] [address] Abs Neutrophile Cnt 11.4 10*3/uL High 2.2-8.2 [facility] Comment on above: Performed By: #### H EMOG, CMP3M, CRP2, LDH3, FIBGN, DDI2, APTT, FERR3 #### [facility] [address] [place] [address] Anisocytosis Ql (Bld) Slight Normal [facility] Comment on above: Performed By: #### H EMOG, CMP3M, CRP2, LDH3, FIBGN, DDI2, APTT, FERR3 #### [facility] [address] [place] [address] Bands 4 % High 0-3 [facility] Comment on above: Performed By: #### H EMOG, CMP3M, CRP2, LDH3, FIBGN, DDI2, APTT, FERR3 #### [facility] [address] [place] [address] Danya Cells Slight Normal [facility] Comment on above: Performed By: #### H EMOG, CMP3M, CRP2, LDH3, FIBGN, DDI2, APTT, FERR3 #### [facility] [address] [place] [address] Lymphocytes 13 % Low 20-40 [facility] Comment on above: Performed By: #### H EMOG, CMP3M, CRP2, LDH3, FIBGN, DDI2, APTT, FERR3 #### [facility] [address] [place] [address] Monocytes 14 % High 2-10 [facility] Comment on above: Performed By: #### H EMOG, CMP3M, CRP2, LDH3, FIBGN, DDI2, APTT, FERR3 #### [facility] [address] [place] [address] NRBC 1 /100{WBCs} High -1-0 [facility] Comment on above: Result Comment: New[place] orn (<60 days) 1-10 Adult <1 Performed By: #### H EMOG, CMP3M, CRP2, LDH3, FIBGN, DDI2, APTT, FERR3 #### [facility] [address] [place] [address] RBC morphology finding Nom (Bld) ABNORMAL Normal [facility] Comment on above: Performed By: #### H EMOG, CMP3M, CRP2, LDH3, FIBGN, DDI2, APTT, FERR3 #### [facility] [address] [place] [address] Seg Neutrophils 69 % Normal 40-80 [facility] Comment on above: Performed By: #### H EMOG, CMP3M, CRP2, LDH3, FIBGN, DDI2, APTT, FERR3 #### [facility] [address] [place] [address] Tear Drop Forms Slight Normal [facility] Comment on above: Performed By: #### H EMOG, CMP3M, CRP2, LDH3, FIBGN, DDI2, APTT, FERR3 #### [facility] [address] [place] [address] Abs Baso Cnt 0.0 10*3/uL Normal 0.0-0.2 [facility] Comment on above: Performed By: #### H EMOG, CMP3M, CRP2, LDH3, FIBGN, DDI2, APTT, FERR3 #### [facility] [address] [place] [address] Abs Eosin Cnt 0.0 10*3/uL Normal 0.0-0.5 [facility] Comment on above: Performed By: #### H EMOG, CMP3M, CRP2, LDH3, FIBGN, DDI2, APTT, FERR3 #### [facility] [address] [place] [address] Basophils 0 % Normal 0-2 [facility] Comment on above: Performed By: #### H EMOG, CMP3M, CRP2, LDH3, FIBGN, DDI2, APTT, FERR3 #### [facility] [address] [place] [address] Cells counted 100 Normal [facility] Comment on above: Performed By: #### H EMOG, CMP3M, CRP2, LDH3, FIBGN, DDI2, APTT, FERR3 #### [facility] [address] [place] [address] Eosinophils 0 % Low 1-6 [facility] Comment on above: Performed By: #### H EMOG, CMP3M, CRP2, LDH3, FIBGN, DDI2, APTT, FERR3 #### [facility] [address] [place] [address] Manual Differentialon 2019 Absolute Baso # 0.0 10*3/uL 0 - 0.2 10*3/uL [facility], [place] Absolute Eos # 0.0 10*3/uL 0 - 0.5 10*3/uL [facility], [place] Absolute Lymph # 2.0 10*3/uL 1.1 - 4.5 10*3/uL [facility], [place] Absolute [place] # 2.2 10*3/uL High 0.2 - 1.1 10*3/uL [facility], [place] Absolute Neut # 11.4 10*3/uL High 2.2 - 8.2 10*3/uL [facility], [place] Anisocytosis Ql (Bld) Slight [facility], [place] Bands 4 % High 0 - 3 % [facility], [place] Basophils 0 % 0 - 2 % [facility], [place] Danya Cells Slight [facility], [place] Eosinophils 0 % Low 1 - 6 % [facility], [place] Interpretation and review of laboratory results Abnormal [facility], [place] Lymphocytes 13 % Low 20 - 40 % [facility], [place] Monocytes 14 % High 2 - 10 % [facility] [place] nRBC 1 /100{WBCs} High -1 - 0 /100{WBCs} [facility] [place] Comment on above: (<60 days) 1 -10 Adult <1 RBC morphology finding Nom (Bld) ABNORMAL [facility], [place] Seg Neutrophils 69 % 40 - 80 % [facility] [place] Tear Drop Cells Slight [facility], [place] TOTAL CELLS COUNTED 100 [facility], [place] Test Performed by [facility], [address] [place], [place] [address] [place] Procalcitoninon 11-03-2020 Procalcitonin < 0.10 Normal <0.10 [facility] Comment on above: Performed By: #### H EMOG, CMP3M, CRP2, LDH3, FIBGN, DDI2, APTT, FERR3 #### [facility] [address] [place] [address] Procalcitonin <0.10 <0.10 ng/mL [place] Sodium [Moles/Vol] See Below [place] Comment on above: PCT <0.50 = Low risk of severe sepsis and/or septic shock. PCT >2.00 = High risk of severe sepsis and/or septic shock. Test Performed by [facility], [address] [place] [address] [place] Interpretation See Below Normal [facility] Comment on above: Result Comment: PCT <0.50 = Low risk of severe sepsis and/or septic shock. PCT >2.00 = High risk of severe sepsis and/or septic shock. Performed By: #### H EMOG, CMP3M, CRP2, LDH3, FIBGN, DDI2, APTT, FERR3 #### [facility] [address] [place] [address] XR CHEST (2 VW)on 11-03-2020 Michel, [facility] Incoming Radiology Results From [facility] - 11/03/2020 10:59 AM EST Patient Name: REGGIE LEÓN Diagnostic Radiology ACCESSION EXAM DATE/TIME PROCEDURE ORDERING PROVIDER [id number] 11/03/2020 10:20 EST CR Chest PA & LAT MD EMILY, FARRUKH MCCORMICK CPT code 60705 Reason For Exam (CR Chest PA & [...] JEFFREY Transcribed Date and Time: 11/03/2020 10:59 [place] Patient Name: REGGIE LEÓN Diagnostic Radiology ACCESSION EXAM DATE/TIME PROCEDURE ORDERING PROVIDER [id number] 11/03/2020 10:20 EST CR Chest PA & LAT MD EMILY, FARRUKH MCCORMICK CPT code 69884 Reason For Exam (CR Chest PA & [...] JEFFREY Transcribed Date and Time: 11/03/2020 10:59 [place] APTTon 11-02-2020 aPTT Coag (Bld) [Time] 30.4 s Normal 20.0-30.5 [facility] Comment on above: Result Comment: NOTE : The therapeutic time for Heparin anticoagulation, based on Xa activity inhibition, is an APTT of 46-80 seconds. Performed By: #### H EMOG, CMP3M, CRP2, LDH3, FIBGN, DDI2, APTT, FERR3 #### [facility] [address] [place] [address] aPTT Coag (Bld) [Time] 30.4 s 20 - 30.5 s [place], [place] Comment on above: NOTE: The therapeuti c time for Heparin anticoagulation, based on Xa activity inhibition, is an APTT of 46-80 seconds. C-Reactive Proteinon CRP [Mass/Vol] 10.2 mg/L High 0.0-6.0 [facility] Comment on above: Result Comment: . Performed By: #### H EMOG, CMP3M, CRP2, LDH3, FIBGN, DDI2, APTT, FERR3 #### [facility] [address] [place] [address] CRP [Mass/Vol] 10.2 mg/L High 0 - 6 mg/L [place] [place] Comment on above: . CBCon 11-02-2020 Erythrocyte distribution width (RBC) [Ratio] 14.2 % 11.5 - 14.5 % [place], [place] Hematocrit (Bld) [Volume fraction] 39.5 % Low 40 - 52 % [place] Hemoglobin (Bld) [Mass/Vol] 13.2 g/dL 13 - 18 g/dL [place] Interpretation and review of laboratory results Abnormal [place] MCH (RBC) [Entitic mass] 29.4 pg 26 - 34 pg [place] MCHC (RBC) [Mass/Vol] 33.5 % 32 - 36 % [place] MCV (RBC) [Entitic vol] 87.8 fL 80 - 98 fL [place], [place] Platelet mean volume (Bld) [Entitic vol] 7.6 fL 7.4 - 10.4 fL [place] Platelets (Bld) [#/Vol] 340 10*3/uL 140 - 440 10*3/uL [place] RBC (Bld) [#/Vol] 4.49 10*6/uL 4.4 - 5.9 10*6/uL [place] WBC (Bld) [#/Vol] 13.0 10*3/uL High 3.6 - 10.7 10*3/uL [place] Test Performed by [facility], [address], [place], [place] [address] [facility] [place], [place] Comp Panel with Mg Reflexon 11-02-2020 ALT [Catalytic activity/Vol] 198 U/L High 0-49 [facility] Comment on above: Result Comment: The ALT test is performed by an updated assay method. Please note that the reference intervals have been changed and are now sex specific. Performed By: #### H EMOG, CMP3M, CRP2, LDH3, FIBGN, DDI2, APTT, FERR3 #### [facility] [address] [place] [address] Calcium [Mass/Vol] 8.8 mg/dL Normal 8.4-10.4 [facility] Comment on above: Performed By: #### H EMOG, CMP3M, CRP2, LDH3, FIBGN, DDI2, APTT, FERR3 #### [facility] [address] [place] [address] Glucose [Mass/Vol] 135 mg/dL High 70-100 [facility] Comment on above: Performed By: #### H EMOG, CMP3M, CRP2, LDH3, FIBGN, DDI2, APTT, FERR3 #### [facility] [address] [place] [address] ALP [Catalytic activity/Vol] 85 U/L Normal 38-126 [facility] Comment on above: Performed By: #### H EMOG, CMP3M, CRP2, LDH3, FIBGN, DDI2, APTT, FERR3 #### [facility] [address] [place] [address] Anion gap [Moles/Vol] 9 Normal [facility] Comment on above: Performed By: #### H EMOG, CMP3M, CRP2, LDH3, FIBGN, DDI2, APTT, FERR3 #### [facility] [address] [place] [address] AST [Catalytic activity/Vol] 104 U/L High 15-46 [facility] Comment on above: Performed By: #### H EMOG, CMP3M, CRP2, LDH3, FIBGN, DDI2, APTT, FERR3 #### [facility] [address] [place] [address] Bilirubin [Mass/Vol] 0.7 mg/dL Normal 0.2-1.3 [facility] Comment on above: Performed By: #### H EMOG, CMP3M, CRP2, LDH3, FIBGN, DDI2, APTT, FERR3 #### [facility] [address] [place] [address] CO2 [Moles/Vol] 18 mmol/L Low 22-30 [facility] Comment on above: Performed By: #### H EMOG, CMP3M, CRP2, LDH3, FIBGN, DDI2, APTT, FERR3 #### [facility] [address] [place] [address] Creatinine [Mass/Vol] 1.89 mg/dL High 0.52-1.25 [facility] Comment on above: Performed By: #### H EMOG, CMP3M, CRP2, LDH3, FIBGN, DDI2, APTT, FERR3 #### [facility] [address] [place] [address] GFR/1.73 sq M predicted among blacks MDRD (S/P/Bld) [Vol rate/Area] 44.5 mL/min/{1.73_m2} Abnormal >60 [facility] Comment on above: Performed By: #### H EMOG, CMP3M, CRP2, LDH3, FIBGN, DDI2, APTT, FERR3 #### [facility] [address] [place] [address] GFR/1.73 sq M predicted among non-blacks MDRD (S/P/Bld) [Vol rate/Area] 38.4 mL/min/{1.73_m2} Abnormal >60 [facility] Comment on above: Result Comment: KDIG [...] LDH3, FIBGN, DDI2, APTT, FERR3 #### [facility] [address] [place] [address] Protein [Mass/Vol] 6.1 g/dL Low 6.3-8.2 [facility] Comment on above: Performed By: #### H EMOG, CMP3M, CRP2, LDH3, FIBGN, DDI2, APTT, FERR3 #### [facility] [address] [place] [address] Urea nitrogen [Mass/Vol] 35 mg/dL High 7-20 [facility] Comment on above: Performed By: #### H EMOG, CMP3M, CRP2, LDH3, FIBGN, DDI2, APTT, FERR3 #### [facility] [address] [place] [address] Potassium [Moles/Vol] 4.3 mmol/L Normal 3.5-5.1 [facility] Comment on above: Performed By: #### H EMOG, CMP3M, CRP2, LDH3, FIBGN, DDI2, APTT, FERR3 #### [facility] [address] [place] [address] Albumin [Mass/Vol] 3.3 g/dL Low 3.5-5.0 [facility] Comment on above: Performed By: #### H EMOG, CMP3M, CRP2, LDH3, FIBGN, DDI2, APTT, FERR3 #### [facility] [address] [place] [address] Chloride [Moles/Vol] 110 mmol/L High 98-107 [facility] Comment on above: Performed By: #### H EMOG, CMP3M, CRP2, LDH3, FIBGN, DDI2, APTT, FERR3 #### [facility] [address] [place] [address] Sodium [Moles/Vol] 137 mmol/L Normal 135-145 [facility] Comment on above: Performed By: #### H EMOG, CMP3M, CRP2, LDH3, FIBGN, DDI2, APTT, FERR3 #### [facility] [address] [place] [address] Comprehensive Metabolic Pane l w/ Reflex to MGon 11-02-2020 Albumin [Mass/Vol] 3.3 g/dL Low 3.5 - 5 g/dL [place] ALP [Catalytic activity/Vol] 85 U/L 38 - 126 U/L [place] ALT [Catalytic activity/Vol] 198 U/L High 0 - 49 U/L [place] Comment on above: The ALT test is perf ormed by an updated assay method. Please note that the reference intervals have been changed and are now sex specific. Anion gap [Moles/Vol] 9 mmol/L [place], [place] AST [Catalytic activity/Vol] 104 U/L High 15 - 46 U/L [place] Bilirubin Ql (U) 0.7 mg/dL 0.2 - 1.3 mg/dL [place] Calcium [Mass/Vol] 8.8 mg/dL 8.4 - 10. 4 mg/dL [place] Chloride [Moles/Vol] 110 mmol/L High 98 - 10 7 mmol/L [place] CO2 [Moles/Vol] 18 mmol/L Low 22 - 30 mmol/L [place] Creatinine [Mass/Vol] 1.89 mg/dL High 0.52 - 1.25 mg/dL [place], [place] EGFR IF NonAfrican Maltese 38.4 mL/min Abnormal >60 [place] Comment on above: KDIGO guidelines pro [...] (S/P/Bld) [Vol rate/Area] 44.5 mL/min/{1.73_m2} Abnormal >60 [place] Glucose [Mass/Vol] 135 mg/dL High 70 - 100 mg/dL [place] Potassium [Moles/Vol] 4.3 mmol/L 3.5 - 5.1 mmol/L [facility], [place] Protein [Mass/Vol] 6.1 g/dL Low 6.3 - 8.2 g/dL [place] Sodium [Moles/Vol] 137 mmol/L 135 - 145 mmol/L [facility], [place] Urea nitrogen [Mass/Vol] 35 mg/dL High 7 - 20 mg/dL [place], [place] D-Dimer, Innovanceon 11-02-2 020 D-Dimer, Innovance 0.83 mg/L High 0.00-0.50 [email or web address] Comment on above: Result Comment: Inno quach D-Dimer values of <0.50 mg/L FEU can be used in combination with a pre-test probability model (e.g. Well's) to exclude pulmonary embolism (PE) disease, as well as an aid in the diagnosis of deep vein thrombosis (DVT). Performed By: #### H EMOG, CMP3M, CRP2, LDH3, FIBGN, DDI2, APTT, FERR3 #### [facility] [address] [place] [address] D-Dimer, Quantitativeon 12-2 0-2020 D-Dimer, Quant 0.83 mg/L High 0 - 0.5 mg/L [place] Comment on above: Innovance D-Dimer va lues of <0.50 mg/L FEU can be used in combination with a pre-test probability model (e.g. Well's) to exclude pulmonary embolism (PE) disease, as well as an aid in the diagnosis of deep vein thrombosis (DVT). Interpretation and review of laboratory results Abnormal [place] Ferritinon 11-02-2020 Ferritin [Mass/Vol] 938 ng/mL High 18-464 [facility] Comment on above: Performed By: #### H EMOG, CMP3M, CRP2, LDH3, FIBGN, DDI2, APTT, FERR3 #### [facility] [address] [place] [address] Ferritin [Mass/Vol] 938 ng/mL High 18 - 464 ng/mL [place] Interpretation and review of laboratory results Abnormal [place] Test Performed by [facility], [address] [place] [address] [place] Fibrinogenon 11-02-2020 Fibrinogen 373 mg/dL Normal 200-400 [facility] Comment on above: Performed By: #### H EMOG, CMP3M, CRP2, LDH3, FIBGN, DDI2, APTT, FERR3 #### [facility] [address] [place] [address] Fibrinogen 373 mg/dL 200 - 400 mg/dL [place] Hemogramon 11-02-2020 Erythrocyte distribution width (RBC) [Ratio] 14.2 % Normal 11.5-14.5 [facility] Comment on above: Performed By: #### H EMOG, CMP3M, CRP2, LDH3, FIBGN, DDI2, APTT, FERR3 #### [facility] [address] [place] [address] Hematocrit (Bld) [Volume fraction] 39.5 % Low 40.0-52.0 [facility] Comment on above: Performed By: #### H EMOG, CMP3M, CRP2, LDH3, FIBGN, DDI2, APTT, FERR3 #### [facility] [address] [place] [address] Hemoglobin (Bld) [Mass/Vol] 13.2 g/dL Normal 13.0-18.0 [facility] Comment on above: Performed By: #### H EMOG, CMP3M, CRP2, LDH3, FIBGN, DDI2, APTT, FERR3 #### [facility] [address] [place] [address] MCH (RBC) [Entitic mass] 29.4 pg Normal 26.0-34.0 [facility] Comment on above: Performed By: #### H EMOG, CMP3M, CRP2, LDH3, FIBGN, DDI2, APTT, FERR3 #### [facility] [address] [place] [address] MCHC (RBC) [Mass/Vol] 33.5 % Normal 32.0-36.0 [facility] Comment on above: Performed By: #### H EMOG, CMP3M, CRP2, LDH3, FIBGN, DDI2, APTT, FERR3 #### [facility] [address] [place] [address] MCV (RBC) [Entitic vol] 87.8 fL Normal 80.0-98.0 [facility] Comment on above: Performed By: #### H EMOG, CMP3M, CRP2, LDH3, FIBGN, DDI2, APTT, FERR3 #### [facility] [address] [place] [address] Platelet mean volume (Bld) [Entitic vol] 7.6 fL Normal 7.4-10.4 [facility] Comment on above: Performed By: #### H EMOG, CMP3M, CRP2, LDH3, FIBGN, DDI2, APTT, FERR3 #### [facility] [address] [place] [address] Platelets (Bld) [#/Vol] 340 10*3/uL Normal 140-440 [facility] Comment on above: Performed By: #### H EMOG, CMP3M, CRP2, LDH3, FIBGN, DDI2, APTT, FERR3 #### [facility] [address] [place] [address] RBC (Bld) [#/Vol] 4.49 10*6/uL Normal 4.40-5.90 [facility] Comment on above: Performed By: #### H EMOG, CMP3M, CRP2, LDH3, FIBGN, DDI2, APTT, FERR3 #### [facility] [address] [place] [address] WBC (Bld) [#/Vol] 13.0 10*3/uL High 3.6-10.7 [facility] Comment on above: Performed By: #### H EMOG, CMP3M, CRP2, LDH3, FIBGN, DDI2, APTT, FERR3 #### [facility] [address] [place] [address] LDHon 11-02-2020 LDH 589 U/L High 120-246 [facility] Comment on above: Performed By: #### H EMOG, CMP3M, CRP2, LDH3, FIBGN, DDI2, APTT, FERR3 #### [facility] [address] [place] [address] Lactate Dehydrogenaseon 10-15 0-2019 LD 589 U/L High 120 - 246 U/L [place] Otheron 11-02-2020 Test Performed by [facility], [address] [place], [place] [id number] [place] [address] Interpretation and review of laboratory results Abnormal [place] Test Performed by [facility], [address] [place], [place] [id number] [place] [address] C-Reactive Proteinon 020 CRP [Mass/Vol] 14.1 mg/L High 0.0-6.0 [facility] Comment on above: Result Comment: . Performed By: #### H EMOG, CMP3M, CRP2, LDH3, FIBGN, DDI2, APTT, FERR3 #### [facility] [address] [place] [address] CRP [Mass/Vol] 14.1 mg/L High 0 - 6 mg/L [place] Comment on above: . Interpretation and review of laboratory results Abnormal [place] Test Performed by [facility], [address] [place] [address] [place] Comp Panel with Mg Reflexon 11-01-2020 ALT [Catalytic activity/Vol] 173 U/L High 0-49 [facility] Comment on above: Result Comment: The ALT test is performed by an updated assay method. Please note that the reference intervals have been changed and are now sex specific. Performed By: #### H EMOG, CMP3M, CRP2, LDH3, FIBGN, DDI2, APTT, FERR3 #### [facility] [address] [place] [address] Calcium [Mass/Vol] 8.7 mg/dL Normal 8.4-10.4 [facility] Comment on above: Performed By: #### H EMOG, CMP3M, CRP2, LDH3, FIBGN, DDI2, APTT, FERR3 #### [facility] [address] [place] [address] ALP [Catalytic activity/Vol] 77 U/L Normal 38-126 [facility] Comment on above: Performed By: #### H EMOG, CMP3M, CRP2, LDH3, FIBGN, DDI2, APTT, FERR3 #### [facility] [address] [place] [address] Anion gap [Moles/Vol] 7 Normal [facility] Comment on above: Performed By: #### H EMOG, CMP3M, CRP2, LDH3, FIBGN, DDI2, APTT, FERR3 #### [facility] [address] [place] [address] AST [Catalytic activity/Vol] 135 U/L High 15-46 [facility] Comment on above: Performed By: #### H EMOG, CMP3M, CRP2, LDH3, FIBGN, DDI2, APTT, FERR3 #### [facility] [address] [place] [address] Bilirubin [Mass/Vol] 0.5 mg/dL Normal 0.2-1.3 [facility] Comment on above: Performed By: #### H EMOG, CMP3M, CRP2, LDH3, FIBGN, DDI2, APTT, FERR3 #### [facility] [address] [place] [address] CO2 [Moles/Vol] 18 mmol/L Low 22-30 [facility] Comment on above: Performed By: #### H EMOG, CMP3M, CRP2, LDH3, FIBGN, DDI2, APTT, FERR3 #### [facility] [address] [place] [address] Creatinine [Mass/Vol] 1.77 mg/dL High 0.52-1.25 [facility] Comment on above: Performed By: #### H EMOG, CMP3M, CRP2, LDH3, FIBGN, DDI2, APTT, FERR3 #### [facility] [address] [place] [address] GFR/1.73 sq M predicted among blacks MDRD (S/P/Bld) [Vol rate/Area] 48.2 mL/min/{1.73_m2} Abnormal >60 [facility] Comment on above: Performed By: #### H EMOG, CMP3M, CRP2, LDH3, FIBGN, DDI2, APTT, FERR3 #### [facility] [address] [place] [address] GFR/1.73 sq M predicted among non-blacks MDRD (S/P/Bld) [Vol rate/Area] 41.6 mL/min/{1.73_m2} Abnormal >60 [facility] Comment on above: Result Comment: KDIG [...] LDH3, FIBGN, DDI2, APTT, FERR3 #### [facility] [address] [place] [address] Glucose [Mass/Vol] 134 mg/dL High 70-100 [facility] Comment on above: Performed By: #### H EMOG, CMP3M, CRP2, LDH3, FIBGN, DDI2, APTT, FERR3 #### [facility] [address] [place] [address] Protein [Mass/Vol] 5.6 g/dL Low 6.3-8.2 [facility] Comment on above: Performed By: #### H EMOG, CMP3M, CRP2, LDH3, FIBGN, DDI2, APTT, FERR3 #### [facility] [address] [place] [address] Urea nitrogen [Mass/Vol] 32 mg/dL High 7-20 [facility] Comment on above: Performed By: #### H EMOG, CMP3M, CRP2, LDH3, FIBGN, DDI2, APTT, FERR3 #### [facility] [address] [place] [address] Potassium [Moles/Vol] 4.2 mmol/L Normal 3.5-5.1 [facility] Comment on above: Performed By: #### H EMOG, CMP3M, CRP2, LDH3, FIBGN, DDI2, APTT, FERR3 #### [facility] [address] [place] [address] Sodium [Moles/Vol] 137 mmol/L Normal 135-145 [facility] Comment on above: Performed By: #### H EMOG, CMP3M, CRP2, LDH3, FIBGN, DDI2, APTT, FERR3 #### [facility] [address] [place] [address] Albumin [Mass/Vol] 3.1 g/dL Low 3.5-5.0 [facility] Comment on above: Performed By: #### H EMOG, CMP3M, CRP2, LDH3, FIBGN, DDI2, APTT, FERR3 #### [facility] [address] [place] [address] Chloride [Moles/Vol] 113 mmol/L High 98-107 [facility] Comment on above: Performed By: #### H EMOG, CMP3M, CRP2, LDH3, FIBGN, DDI2, APTT, FERR3 #### [facility] [address] [place] [address] Comprehensive Metabolic Pane l w/ Reflex to MGon 11-01-2020 Albumin [Mass/Vol] 3.1 g/dL Low 3.5 - 5 g/dL [place] ALP [Catalytic activity/Vol] 77 U/L 38 - 126 U/L [place] ALT [Catalytic activity/Vol] 173 U/L High 0 - 49 U/L [place] Comment on above: The ALT test is perf ormed by an updated assay method. Please note that the reference intervals have been changed and are now sex specific. Anion gap [Moles/Vol] 7 mmol/L [place] AST [Catalytic activity/Vol] 135 U/L High 15 - 46 U/L [place] Bilirubin Ql (U) 0.5 mg/dL 0.2 - 1.3 mg/dL [place] Calcium [Mass/Vol] 8.7 mg/dL 8.4 - 10. 4 mg/dL [place] Chloride [Moles/Vol] 113 mmol/L High 98 - 10 7 mmol/L [place] CO2 [Moles/Vol] 18 mmol/L Low 22 - 30 mmol/L [place] Creatinine [Mass/Vol] 1.77 mg/dL High 0.52 - 1.25 mg/dL [place] EGFR IF NonAfrican [place]ese 41.6 mL/min Abnormal >60 [place] Comment on above: KDIGO guidelines pro [...] (S/P/Bld) [Vol rate/Area] 48.2 mL/min/{1.73_m2} Abnormal >60 [facility], [place] Glucose [Mass/Vol] 134 mg/dL High 70 - 100 mg/dL [facility], [place] Potassium [Moles/Vol] 4.2 mmol/L 3.5 - 5.1 mmol/L [facility], [place] Protein [Mass/Vol] 5.6 g/dL Low 6.3 - 8.2 g/dL [facility], [place] Sodium [Moles/Vol] 137 mmol/L 135 - 145 mmol/L [facility], [place] Urea nitrogen [Mass/Vol] 32 mg/dL High 7 - 20 mg/dL [place] D-Dimer, Innovanceon 11-01- 020 D-Dimer, Innovance 0.87 mg/L High 0.00-0.50 [email or web address] Comment on above: Result Comment: Inno quach D-Dimer values of <0.50 mg/L FEU can be used in combination with a pre-test probability model (e.g. Well's) to exclude pulmonary embolism (PE) disease, as well as an aid in the diagnosis of deep vein thrombosis (DVT). Performed By: #### H EMOG, CMP3M, CRP2, LDH3, FIBGN, DDI2, APTT, FERR3 #### [facility] [address] [place] [address] D-Dimer, Quantitativeon 10-14 D-Dimer, Quant 0.87 mg/L High 0 - 0.5 mg/L [place] Comment on above: [employer] D-Dimer va lues of <0.50 mg/L FEU can be used in combination with a pre-test probability model (e.g. Well's) to exclude pulmonary embolism (PE) disease, as well as an aid in the diagnosis of deep vein thrombosis (DVT). EKG 12 Leadon 11-01-2020 Michel, [facility] Incoming Cardiology Results From [employer] - 11/01/2020 11:02 PM EST [email or web address] Test Date: 2020-10-31 Pat Name: Reggie León Department: 09 Room: 468 Gender: Cirilo Machine Baster: [place] : 1965 Requested By: FARRUKH DIAZ Order Number: [id number] Reading MD: Usama Johnston Intervals [place] Rate: 83 P: 21 [place]: 192 QRS: -16 QRSD: 104 T: 28 QT: 404 QTc: 475 Interpretive Statements SINUS RHYTHM MULTIPLE VENTRICULAR PREMATURE COMPLEXES Electronically Signed On 11-01-2020 23:01:06 EST by Usama [employer] [facility] [employer] [email or web address] Test Date: 2020-10-31 Pat Name: Reggie León Department: 09 Room: 468 Gender: M Machine Baster: [place] : 1965 Requested By: FARRUKH DIAZ Order Number: [id number] Reading MD: Usama Johnston Intervals [place] Rate: 83 P: 21 [place]: 192 QRS: -16 QRSD: 104 T: 28 QT: 404 QTc: 475 Interpretive Statements SINUS RHYTHM MULTIPLE VENTRICULAR PREMATURE COMPLEXES Electronically Signed On 11-01-2020 23:01:06 EST by Usama Cedillo [employer] [facility] [employer] [place] Ferritinon 11-01-2020 Ferritin [Mass/Vol] 1020 ng/mL High 18-464 [facility] [employer] Comment on above: Performed By: #### H EMOG, CMP3M, CRP2, LDH3, FIBGN, DDI2, APTT, FERR3 #### [facility] [address] [place] [address] Ferritin [Mass/Vol] 1020 ng/mL High 18 - 464 ng/mL [facility] [employer] [place] Interpretation and review of laboratory results Abnormal [facility] Test Performed by [facility], [address], [place], [place] [address] [facility] Fibrinogenon 11-01-2020 Fibrinogen 420 mg/dL High 200-400 [facility] [employer] Comment on above: Performed By: #### H EMOG, CMP3M, CRP2, LDH3, FIBGN, DDI2, APTT, FERR3 #### [facility] [address] [place] [address] Fibrinogen 420 mg/dL High 200 - 400 mg/dL [place] LDHon 11-01-2020 LDH 665 U/L High 120-246 [facility] Comment on above: Performed By: #### H EMOG, CMP3M, CRP2, LDH3, FIBGN, DDI2, APTT, FERR3 #### [facility] [address] [place] [address] Lactate Dehydrogenaseon 10-14 LD 665 U/L High 120 - 246 U/L [place] Otheron 11-01-2020 Interpretation and review of laboratory results Abnormal [place] Test Performed by [facility], [address] [place] [address] [place] Interpretation and review of laboratory results Abnormal [place] Test Performed by [facility], [address] [place] [address] [place] C-Reactive Proteinon 020 CRP [Mass/Vol] 19.2 mg/L High 0.0-6.0 [facility] Comment on above: Result Comment: . Performed By: #### H EMOG, CMP3M, CRP2, LDH3, FIBGN, DDI2, APTT, FERR3 #### [facility] [address] [place] [address] CRP [Mass/Vol] 19.2 mg/L High 0 - 6 mg/L [place] Comment on above: . CBCon 10-31-2020 Erythrocyte distribution width (RBC) [Ratio] 14.0 % 11.5 - 14.5 % [place] Hematocrit (Bld) [Volume fraction] 35.7 % Low 40 - 52 % [place] Hemoglobin (Bld) [Mass/Vol] 12.0 g/dL Low 13 - 18 g/dL [place] Interpretation and review of laboratory results Abnormal [place] MCH (RBC) [Entitic mass] 29.0 pg 26 - 34 pg [place] MCHC (RBC) [Mass/Vol] 33.7 % 32 - 36 % [place] MCV (RBC) [Entitic vol] 86.3 fL 80 - 98 fL [place] Platelet mean volume (Bld) [Entitic vol] 7.5 fL 7.4 - 10.4 fL [place] Platelets (Bld) [#/Vol] 294 10*3/uL 140 - 440 10*3/uL [place] RBC (Bld) [#/Vol] 4.14 10*6/uL Low 4.4 - 5.9 10*6/uL [place] WBC (Bld) [#/Vol] 9.5 10*3/uL 3.6 - 10.7 10*3/uL [place] Test Performed by [facility], [address] [place] [address] [place] Comp Panel with Mg Reflexon 10-31-2020 ALT [Catalytic activity/Vol] 79 U/L High 0-49 [facility] Comment on above: Result Comment: The ALT test is performed by an updated assay method. Please note that the reference intervals have been changed and are now sex specific. Performed By: #### H EMOG, CMP3M, CRP2, LDH3, FIBGN, DDI2, APTT, FERR3 #### [facility] [address] [place] [address] Calcium [Mass/Vol] 8.7 mg/dL Normal 8.4-10.4 [facility] Comment on above: Performed By: #### H EMOG, CMP3M, CRP2, LDH3, FIBGN, DDI2, APTT, FERR3 #### [facility] [address] [place] [address] Glucose [Mass/Vol] 139 mg/dL High 70-100 [facility] Comment on above: Performed By: #### H EMOG, CMP3M, CRP2, LDH3, FIBGN, DDI2, APTT, FERR3 #### [facility] [address] [place] [address] Urea nitrogen [Mass/Vol] 30 mg/dL High 7-20 [facility] Comment on above: Performed By: #### H EMOG, CMP3M, CRP2, LDH3, FIBGN, DDI2, APTT, FERR3 #### [facility] [address] [place] [address] ALP [Catalytic activity/Vol] 69 U/L Normal 38-126 [facility] Comment on above: Performed By: #### H EMOG, CMP3M, CRP2, LDH3, FIBGN, DDI2, APTT, FERR3 #### [facility] [address] [place] [address] Anion gap [Moles/Vol] 7 Normal [facility] Comment on above: Performed By: #### H EMOG, CMP3M, CRP2, LDH3, FIBGN, DDI2, APTT, FERR3 #### [facility] [address] [place] [address] AST [Catalytic activity/Vol] 67 U/L High 15-46 [facility] Comment on above: Performed By: #### H EMOG, CMP3M, CRP2, LDH3, FIBGN, DDI2, APTT, FERR3 #### [facility] [address] [place] [address] Bilirubin [Mass/Vol] 0.4 mg/dL Normal 0.2-1.3 [facility] Comment on above: Performed By: #### H EMOG, CMP3M, CRP2, LDH3, FIBGN, DDI2, APTT, FERR3 #### [facility] [address] [place] [address] CO2 [Moles/Vol] 17 mmol/L Low 22-30 [facility] Comment on above: Performed By: #### H EMOG, CMP3M, CRP2, LDH3, FIBGN, DDI2, APTT, FERR3 #### [facility] [address] [place] [address] Creatinine [Mass/Vol] 1.84 mg/dL High 0.52-1.25 [facility] Comment on above: Performed By: #### H EMOG, CMP3M, CRP2, LDH3, FIBGN, DDI2, APTT, FERR3 #### [facility] [address] [place] [address] GFR/1.73 sq M predicted among blacks MDRD (S/P/Bld) [Vol rate/Area] 46.0 mL/min/{1.73_m2} Abnormal >60 [facility] Comment on above: Performed By: #### H EMOG, CMP3M, CRP2, LDH3, FIBGN, DDI2, APTT, FERR3 #### [facility] [address] [place] [address] GFR/1.73 sq M predicted among non-blacks MDRD (S/P/Bld) [Vol rate/Area] 39.7 mL/min/{1.73_m2} Abnormal >60 [facility] Comment on above: Result Comment: KDIG [...] LDH3, FIBGN, DDI2, APTT, FERR3 #### [facility] [address] [place] [address] Protein [Mass/Vol] 5.3 g/dL Low 6.3-8.2 [facility] Comment on above: Performed By: #### H EMOG, CMP3M, CRP2, LDH3, FIBGN, DDI2, APTT, FERR3 #### [facility] [address] [place] [address] Albumin [Mass/Vol] 2.8 g/dL Low 3.5-5.0 [facility] Comment on above: Performed By: #### H EMOG, CMP3M, CRP2, LDH3, FIBGN, DDI2, APTT, FERR3 #### [facility] [address] [place] [address] Chloride [Moles/Vol] 112 mmol/L High 98-107 [facility] Comment on above: Performed By: #### H EMOG, CMP3M, CRP2, LDH3, FIBGN, DDI2, APTT, FERR3 #### [facility] [address] [place] [address] Sodium [Moles/Vol] 136 mmol/L Normal 135-145 [facility] Comment on above: Performed By: #### H EMOG, CMP3M, CRP2, LDH3, FIBGN, DDI2, APTT, FERR3 #### [facility] [address] [place] [address] Potassium [Moles/Vol] 3.8 mmol/L Normal 3.5-5.1 [place] Comment on above: Performed By: #### H EMOG, CMP3M, CRP2, LDH3, FIBGN, DDI2, APTT, FERR3 #### [facility] [address] [place] [address] Comprehensive Metabolic Pane l w/ Reflex to MGon 10-31-2020 Albumin [Mass/Vol] 2.8 g/dL Low 3.5 - 5 g/dL [place] ALP [Catalytic activity/Vol] 69 U/L 38 - 126 U/L [place] ALT [Catalytic activity/Vol] 79 U/L High 0 - 49 U/L [place] Comment on above: The ALT test is perf ormed by an updated assay method. Please note that the reference intervals have been changed and are now sex specific. Anion gap [Moles/Vol] 7 mmol/L [place] AST [Catalytic activity/Vol] 67 U/L High 15 - 46 U/L [place] Bilirubin Ql (U) 0.4 mg/dL 0.2 - 1.3 mg/dL [place] Calcium [Mass/Vol] 8.7 mg/dL 8.4 - 10. 4 mg/dL [place] Chloride [Moles/Vol] 112 mmol/L High 98 - 10 7 mmol/L [place] CO2 [Moles/Vol] 17 mmol/L Low 22 - 30 mmol/L [place] Creatinine [Mass/Vol] 1.84 mg/dL High 0.52 - 1.25 mg/dL [place] EGFR IF NonAfrican [place]ese 39.7 mL/min Abnormal >60 [place] Comment on above: KDIGO guidelines pro [...] (S/P/Bld) [Vol rate/Area] 46.0 mL/min/{1.73_m2} Abnormal >60 [place] Glucose [Mass/Vol] 139 mg/dL High 70 - 100 mg/dL [place] Protein [Mass/Vol] 5.3 g/dL Low 6.3 - 8.2 g/dL [place] Sodium [Moles/Vol] 136 mmol/L 135 - 145 mmol/L [place] Urea nitrogen [Mass/Vol] 30 mg/dL High 7 - 20 mg/dL [place] D-Dimer, Innovanceon 12-18-2 020 D-Dimer, Innovance 0.96 mg/L High 0.00-0.50 [facility] Comment on above: Result Comment: Inno quach D-Dimer values of <0.50 mg/L FEU can be used in combination with a pre-test probability model (e.g. Well's) to exclude pulmonary embolism (PE) disease, as well as an aid in the diagnosis of deep vein thrombosis (DVT). Performed By: #### H EMOG, CMP3M, CRP2, LDH3, FIBGN, DDI2, APTT, FERR3 #### [facility] [address] [place] [address] D-Dimer, Quantitativeon 10-14 D-Dimer, Quant 0.96 mg/L High 0 - 0.5 mg/L [place] Comment on above: Innovance D-Dimer va lues of <0.50 mg/L FEU can be used in combination with a pre-test probability model (e.g. Well's) to exclude pulmonary embolism (PE) disease, as well as an aid in the diagnosis of deep vein thrombosis (DVT). Ferritinon 10-31-2020 Ferritin [Mass/Vol] 810 ng/mL High 18-464 [facility] Comment on above: Performed By: #### H EMOG, CMP3M, CRP2, LDH3, FIBGN, DDI2, APTT, FERR3 #### [facility] [address] [place] [address] Ferritin [Mass/Vol] 810 ng/mL High 18 - 464 ng/mL [place] Interpretation and review of laboratory results Abnormal [place] Test Performed by [facility], [address] [place] [address] [place] Fibrinogenon 10-31-2020 Fibrinogen 455 mg/dL High 200-400 [facility] Comment on above: Performed By: #### H EMOG, CMP3M, CRP2, LDH3, FIBGN, DDI2, APTT, FERR3 #### [facility] [address] [place] [address] Fibrinogen 455 mg/dL High 200 - 400 mg/dL [place] Hemogramon 10-31-2020 Erythrocyte distribution width (RBC) [Ratio] 14.0 % Normal 11.5-14.5 [facility] Comment on above: Performed By: #### H EMOG, CMP3M, CRP2, LDH3, FIBGN, DDI2, APTT, FERR3 #### [facility] [address] [place] [address] Hematocrit (Bld) [Volume fraction] 35.7 % Low 40.0-52.0 [facility] Comment on above: Performed By: #### H EMOG, CMP3M, CRP2, LDH3, FIBGN, DDI2, APTT, FERR3 #### [facility] [address] [place] [address] Hemoglobin (Bld) [Mass/Vol] 12.0 g/dL Low 13.0-18.0 [facility] Comment on above: Performed By: #### H EMOG, CMP3M, CRP2, LDH3, FIBGN, DDI2, APTT, FERR3 #### [facility] [address] [place] [address] MCH (RBC) [Entitic mass] 29.0 pg Normal 26.0-34.0 [facility] Comment on above: Performed By: #### H EMOG, CMP3M, CRP2, LDH3, FIBGN, DDI2, APTT, FERR3 #### [facility] [address] [place] [address] MCHC (RBC) [Mass/Vol] 33.7 % Normal 32.0-36.0 [facility] Comment on above: Performed By: #### H EMOG, CMP3M, CRP2, LDH3, FIBGN, DDI2, APTT, FERR3 #### [facility] [address] [place] [address] MCV (RBC) [Entitic vol] 86.3 fL Normal 80.0-98.0 [facility] Comment on above: Performed By: #### H EMOG, CMP3M, CRP2, LDH3, FIBGN, DDI2, APTT, FERR3 #### [facility] [address] [place] [address] Platelet mean volume (Bld) [Entitic vol] 7.5 fL Normal 7.4-10.4 [facility] Comment on above: Performed By: #### H EMOG, CMP3M, CRP2, LDH3, FIBGN, DDI2, APTT, FERR3 #### [facility] [address] [place] [address] Platelets (Bld) [#/Vol] 294 10*3/uL Normal 140-440 [facility] Comment on above: Performed By: #### H EMOG, CMP3M, CRP2, LDH3, FIBGN, DDI2, APTT, FERR3 #### [facility] [address] [place] [address] RBC (Bld) [#/Vol] 4.14 10*6/uL Low 4.40-5.90 [facility] Comment on above: Performed By: #### H EMOG, CMP3M, CRP2, LDH3, FIBGN, DDI2, APTT, FERR3 #### [facility] [address] [place] [address] WBC (Bld) [#/Vol] 9.5 10*3/uL Normal 3.6-10.7 [facility] Comment on above: Performed By: #### H EMOG, CMP3M, CRP2, LDH3, FIBGN, DDI2, APTT, FERR3 #### [facility] [address] [place] [address] LDHon 10-31-2020 LDH 572 U/L High 120-246 [facility] Comment on above: Performed By: #### H EMOG, CMP3M, CRP2, LDH3, FIBGN, DDI2, APTT, FERR3 #### [facility] [address] [place] [address] Lactate Dehydrogenaseon 10-14 LD 572 U/L High 120 - 246 U/L [facility] [place], [place] Otheron 10-31-2020 Interpretation and review of laboratory results Abnormal [facility] [place] Test Performed by [facility], [facility] [address] [place], [place] [id number] [place] [address] [place] Interpretation and review of laboratory results Abnormal [facility] [place] Test Performed by [facility], [address] [place] [address] [place] APTTon 10-30-2020 aPTT Coag (Bld) [Time] 47.0 s High 20.0-30.5 [facility] Comment on above: Result Comment: NOTE : The therapeutic time for Heparin anticoagulation, based on Xa activity inhibition, is an APTT of 46-80 seconds. Performed By: #### H EMOG, CMP3M, CRP2, LDH3, FIBGN, DDI2, APTT, FERR3 #### [facility] [address] [place] [address] aPTT Coag (Bld) [Time] 47 s High 20 - 30.5 s [place], [place] Comment on above: NOTE: The therapeuti c time for Heparin anticoagulation, based on Xa activity inhibition, is an APTT of 46-80 seconds. C-Reactive Proteinon 020 CRP [Mass/Vol] 27.5 mg/L High 0.0-6.0 [facility] Comment on above: Result Comment: . Performed By: #### H EMOG, CMP3M, CRP2, LDH3, FIBGN, DDI2, APTT, FERR3 #### [facility] [address] [place] [address] CRP [Mass/Vol] 27.5 mg/L High 0 - 6 mg/L [place] Comment on above: . Comp Panel with Mg Reflexon 10-30-2020 ALT [Catalytic activity/Vol] 67 U/L High 0-49 [facility] Comment on above: Result Comment: The ALT test is performed by an updated assay method. Please note that the reference intervals have been changed and are now sex specific. Performed By: #### H EMOG, CMP3M, CRP2, LDH3, FIBGN, DDI2, APTT, FERR3 #### [facility] [address] [place] [address] Calcium [Mass/Vol] 8.6 mg/dL Normal 8.4-10.4 [facility] Comment on above: Performed By: #### H EMOG, CMP3M, CRP2, LDH3, FIBGN, DDI2, APTT, FERR3 #### [facility] [address] [place] [address] Glucose [Mass/Vol] 142 mg/dL High 70-100 [facility] Comment on above: Performed By: #### H EMOG, CMP3M, CRP2, LDH3, FIBGN, DDI2, APTT, FERR3 #### [facility] [address] [place] [address] Urea nitrogen [Mass/Vol] 30 mg/dL High 7-20 [facility] Comment on above: Performed By: #### H EMOG, CMP3M, CRP2, LDH3, FIBGN, DDI2, APTT, FERR3 #### [facility] [address] [place] [address] ALP [Catalytic activity/Vol] 75 U/L Normal 38-126 [facility] Comment on above: Performed By: #### H EMOG, CMP3M, CRP2, LDH3, FIBGN, DDI2, APTT, FERR3 #### [facility] [address] [place] [address] Anion gap [Moles/Vol] 8 Normal [facility] Comment on above: Performed By: #### H EMOG, CMP3M, CRP2, LDH3, FIBGN, DDI2, APTT, FERR3 #### [facility] [address] [place] [address] AST [Catalytic activity/Vol] 67 U/L High 15-46 [facility] Comment on above: Performed By: #### H EMOG, CMP3M, CRP2, LDH3, FIBGN, DDI2, APTT, FERR3 #### [facility] [address] [place] [address] Bilirubin [Mass/Vol] 0.3 mg/dL Normal 0.2-1.3 [facility] Comment on above: Performed By: #### H EMOG, CMP3M, CRP2, LDH3, FIBGN, DDI2, APTT, FERR3 #### [facility] [address] [place] [address] CO2 [Moles/Vol] 18 mmol/L Low 22-30 [facility] Comment on above: Performed By: #### H EMOG, CMP3M, CRP2, LDH3, FIBGN, DDI2, APTT, FERR3 #### [facility] [address] [place] [address] Creatinine [Mass/Vol] 2.01 mg/dL High 0.52-1.25 [facility] Comment on above: Performed By: #### H EMOG, CMP3M, CRP2, LDH3, FIBGN, DDI2, APTT, FERR3 #### [facility] [address] [place] [address] GFR/1.73 sq M predicted among blacks MDRD (S/P/Bld) [Vol rate/Area] 41.3 mL/min/{1.73_m2} Abnormal >60 [facility] Comment on above: Performed By: #### H EMOG, CMP3M, CRP2, LDH3, FIBGN, DDI2, APTT, FERR3 #### [facility] [address] [place] [address] GFR/1.73 sq M predicted among non-blacks MDRD (S/P/Bld) [Vol rate/Area] 35.6 mL/min/{1.73_m2} Abnormal >60 [facility] Comment on above: Result Comment: KDIG [...] LDH3, FIBGN, DDI2, APTT, FERR3 #### [facility] [address] [place] [address] Protein [Mass/Vol] 5.7 g/dL Low 6.3-8.2 [facility] Comment on above: Performed By: #### H EMOG, CMP3M, CRP2, LDH3, FIBGN, DDI2, APTT, FERR3 #### [facility] [address] [place] [address] Potassium [Moles/Vol] 4.0 mmol/L Normal 3.5-5.1 [facility] Comment on above: Performed By: #### H EMOG, CMP3M, CRP2, LDH3, FIBGN, DDI2, APTT, FERR3 #### [facility] [address] [place] [address] Albumin [Mass/Vol] 2.9 g/dL Low 3.5-5.0 [facility] Comment on above: Performed By: #### H EMOG, CMP3M, CRP2, LDH3, FIBGN, DDI2, APTT, FERR3 #### [facility] [address] [place] [address] Chloride [Moles/Vol] 114 mmol/L High 98-107 [facility] Comment on above: Performed By: #### H EMOG, CMP3M, CRP2, LDH3, FIBGN, DDI2, APTT, FERR3 #### [facility] [address] [place] [address] Sodium [Moles/Vol] 140 mmol/L Normal 135-145 [facility] Comment on above: Performed By: #### H EMOG, CMP3M, CRP2, LDH3, FIBGN, DDI2, APTT, FERR3 #### [facility] [address] [place] [address] Comprehensive Metabolic Pane l w/ Reflex to MGon 10-30-2020 Albumin [Mass/Vol] 2.9 g/dL Low 3.5 - 5 g/dL [place] ALP [Catalytic activity/Vol] 75 U/L 38 - 126 U/L [place] ALT [Catalytic activity/Vol] 67 U/L High 0 - 49 U/L [place] Comment on above: The ALT test is perf ormed by an updated assay method. Please note that the reference intervals have been changed and are now sex specific. Anion gap [Moles/Vol] 8 mmol/L [place] AST [Catalytic activity/Vol] 67 U/L High 15 - 46 U/L [place] Bilirubin Ql (U) 0.3 mg/dL 0.2 - 1.3 mg/dL [place] Calcium [Mass/Vol] 8.6 mg/dL 8.4 - 10. 4 mg/dL [place] Chloride [Moles/Vol] 114 mmol/L High 98 - 10 7 mmol/L [place] CO2 [Moles/Vol] 18 mmol/L Low 22 - 30 mmol/L [place] Creatinine [Mass/Vol] 2.01 mg/dL High 0.52 - 1.25 mg/dL [place] EGFR IF NonAfrican [place]ese 35.6 mL/min Abnormal >60 [place] Comment on above: KDIGO guidelines pro [...] (S/P/Bld) [Vol rate/Area] 41.3 mL/min/{1.73_m2} Abnormal >60 [place] Glucose [Mass/Vol] 142 mg/dL High 70 - 100 mg/dL [place] Potassium [Moles/Vol] 4.0 mmol/L 3.5 - 5.1 mmol/L [place] Protein [Mass/Vol] 5.7 g/dL Low 6.3 - 8.2 g/dL [place] Sodium [Moles/Vol] 140 mmol/L 135 - 145 mmol/L [place] Urea nitrogen [Mass/Vol] 30 mg/dL High 7 - 20 mg/dL [place] D-Dimer, Innovanceon 020 D-Dimer, Innovance 0.89 mg/L High 0.00-0.50 [facility] Comment on above: Result Comment: Inno quach D-Dimer values of <0.50 mg/L FEU can be used in combination with a pre-test probability model (e.g. Well's) to exclude pulmonary embolism (PE) disease, as well as an aid in the diagnosis of deep vein thrombosis (DVT). Performed By: #### H EMOG, CMP3M, CRP2, LDH3, FIBGN, DDI2, APTT, FERR3 #### [facility] [address] [place] [address] D-Dimer, Quantitativeon 10-14 D-Dimer, Quant 0.89 mg/L High 0 - 0.5 mg/L [place] Comment on above: Innovance D-Dimer va lues of <0.50 mg/L FEU can be used in combination with a pre-test probability model (e.g. Well's) to exclude pulmonary embolism (PE) disease, as well as an aid in the diagnosis of deep vein thrombosis (DVT). Ferritinon 10-30-2020 Ferritin [Mass/Vol] 885 ng/mL High 18-464 [facility] Comment on above: Performed By: #### H EMOG, CMP3M, CRP2, LDH3, FIBGN, DDI2, APTT, FERR3 #### [facility] [address] [place] [address] Ferritin [Mass/Vol] 885 ng/mL High 18 - 464 ng/mL [place] Interpretation and review of laboratory results Abnormal [place] Test Performed by [facility], [address] [place] [address] [place] Fibrinogenon 10-30-2020 Fibrinogen 456 mg/dL High 200-400 [facility] Comment on above: Performed By: #### H EMOG, CMP3M, CRP2, LDH3, FIBGN, DDI2, APTT, FERR3 #### [facility] [address] [place] [address] Fibrinogen 456 mg/dL High 200 - 400 mg/dL [place] LDHon 10-30-2020 LDH 613 U/L High 120-246 [facility] Comment on above: Performed By: #### H EMOG, CMP3M, CRP2, LDH3, FIBGN, DDI2, APTT, FERR3 #### [facility] [address] [place] [address] Lactate Dehydrogenaseon 10-14 LD 613 U/L High 120 - 246 U/L [place] Otheron 10-30-2020 Interpretation and review of laboratory results Abnormal [place] Test Performed by [facility], [facility] [address] [place], [place] [id number] [place] [address] Interpretation and review of laboratory results Abnormal [place] Test Performed by [facility], [address] [place], [place] [address] [place] APTTon 10-29-2020 aPTT Coag (Bld) [Time] 35.1 s High 20.0-30.5 [facility] Comment on above: Result Comment: NOTE : The therapeutic time for Heparin anticoagulation, based on Xa activity inhibition, is an APTT of 46-80 seconds. Performed By: #### H EMOG, CMP3M, CRP2, LDH3, FIBGN, DDI2, APTT, FERR3 #### [facility] [address] [place] [address] aPTT Coag (Bld) [Time] 35.1 s High 20 - 30.5 s [place] Comment on above: NOTE: The therapeuti c time for Heparin anticoagulation, based on Xa activity inhibition, is an APTT of 46-80 seconds. C-Reactive Proteinon 020 CRP [Mass/Vol] 34.9 mg/L High 0.0-6.0 [facility] Comment on above: Result Comment: . Performed By: #### H EMOG, CMP3M, CRP2, LDH3, FIBGN, DDI2, APTT, FERR3 #### [facility] [address] [place] [address] CRP [Mass/Vol] 34.9 mg/L High 0 - 6 mg/L [place] Comment on above: . CBCon 10-29-2020 Erythrocyte distribution width (RBC) [Ratio] 14.2 % 11.5 - 14.5 % [place] Hematocrit (Bld) [Volume fraction] 37.3 % Low 40 - 52 % [place] Hemoglobin (Bld) [Mass/Vol] 12.6 g/dL Low 13 - 18 g/dL [place] Interpretation and review of laboratory results Abnormal [place] MCH (RBC) [Entitic mass] 29.2 pg 26 - 34 pg [place] MCHC (RBC) [Mass/Vol] 33.7 % 32 - 36 % [place] MCV (RBC) [Entitic vol] 86.7 fL 80 - 98 fL [place] Platelet mean volume (Bld) [Entitic vol] 7.6 fL 7.4 - 10.4 fL [place] Platelets (Bld) [#/Vol] 255 10*3/uL 140 - 440 10*3/uL [place] RBC (Bld) [#/Vol] 4.30 10*6/uL Low 4.4 - 5.9 10*6/uL [place] WBC (Bld) [#/Vol] 7.8 10*3/uL 3.6 - 10.7 10*3/uL [place] Test Performed by [facility], [address], [place], [place] [address] [place] CBC auto differentialon 10-14 Absolute Baso # 0.0 10*3/uL 0 - 0.2 10*3/uL [place] Absolute Neut # 3.5 10*3/uL 1.8 - 7 10*3/uL [place] Basophils/100 WBC (Bld) 0.3 % 0 - 2 % [place] Eosinophils (Bld) [#/Vol] 0.0 10*3/uL 0 - 0.5 10*3/uL [place] Eosinophils/100 WBC (Bld) 0.0 % Low 1 - 6 % [place] Erythrocyte distribution width (RBC) [Ratio] 13.8 % 11.5 - 14.5 % [place] Granulocytes/100 WBC (Bld) 79.4 % 40 - 80 % [place] Hematocrit (Bld) [Volume fraction] 36.7 % Low 40 - 52 % [place] Hemoglobin (Bld) [Mass/Vol] 12.2 g/dL Low 13 - 18 g/dL [place] Interpretation and review of laboratory results Abnormal [place] Lymphocytes (Bld) [#/Vol] 0.4 10*3/uL Low 1 - 4.3 10*3/uL [place] Lymphocytes/100 WBC (Bld) 8.8 % Low 20 - 40 % [place] MCH (RBC) [Entitic mass] 29.1 pg 26 - 34 pg [place] MCHC (RBC) [Mass/Vol] 33.1 % 32 - 36 % [place] MCV (RBC) [Entitic vol] 87.8 fL 80 - 98 fL [place] Monocytes (Bld) [#/Vol] 0.5 10*3/uL 0 - 0.8 10*3/uL [place] Monocytes/100 WBC (Bld) 11.5 % High 2 - 10 % [place] Platelet mean volume (Bld) [Entitic vol] 7.9 fL 7.4 - 10.4 fL [place] Platelets (Bld) [#/Vol] 231 10*3/uL 140 - 440 10*3/uL [place] RBC (Bld) [#/Vol] 4.19 10*6/uL Low 4.4 - 5.9 10*6/uL [place] WBC (Bld) [#/Vol] 4.4 10*3/uL 3.6 - 10.7 10*3/uL [place] Test Performed by [facility], [address] [place], [place], [place] [address] [place] COVID and Resp PCR Panelon 1 12-30-2019 COVID and Resp PCR Panel COVID and Resp PCR Panel --> Status: F NEGATIVE: No targets were detected by the [employer] Upper Respiratory Pathogens PCR Panel. _ Expected Result: Not Detected The [employer] Upper Respiratory Pathogens PCR Panel can detect [...] management decisions. This assay was developed by [employer] and distributed under an Emergency Use Authorization (EUA) granted by the FDA for the qualitative detection of SARS-CoV-2 nucleic acid. Provider and patient fact sheets can be found at https://www.fda.gov/m edia/494166/download and https://www.fda.gov/m edia/633908/download. Respiratory Pathogens PCR Panel. _ Expected Result: Not Detected The [employer] Upper Respiratory Pathogens PCR Panel can detect [...] management decisions. This assay was developed by [facility] and distributed under an Emergency Use Authorization (EUA) granted by the FDA for the qualitative detection of SARS-CoV-2 nucleic acid. Provider and patient fact sheets can be found at https://www.essentia health.gov/m edia/380715/download and https://www.fda.gov/m edia/832997/download. Normal [facility] Comment on above: Performed By: #### H EMOG, CMP3M, CRP2, LDH3, FIBGN, DDI2, APTT, FERR3 #### [facility] [address] [place] [address] CTA CHEST W WO CONTRASTon Patient Name: REGGIE LEÓN Computed Tomography ACCESSION EXAM DATE/TIME PROCEDURE ORDERING PROVIDER [id number] 10/29/2020 16:29 EST CTA Chest w/ + w/o MD EMILY, FARRUKH MCCORMICK Contrast CPT code 74902 Q9967 Reason For Exam (CTA Chest w/ + w/o Contrast) Hypoxia and elevated D-dimer, possible COVID+ and PE? Report Reasons for examination: Hypoxia, elevated d-dimer, Covid 19. CT scan of the chest were performed with bolus contrast and high resolution scans for CT pulmonary angiographic study, with images post-processed by myself on [employer] workstation, with 3D - volume rendered CT [...] WILLIAM Transcribed Date and Time: 10/29/2020 4:51 [facility], [place] Michel, [place] Incoming Radiology Results From [facility] - 10/29/2020 4:51 PM EST Patient Name: REGGIE LEÓN Computed Tomography ACCESSION EXAM DATE/TIME PROCEDURE ORDERING PROVIDER [id number] 10/29/2020 16:29 EST CTA Chest w/ + w/o MD EMILY, FARRUKH MCCORMICK Contrast CPT code 01482 Q9967 Reason For Exam (CTA Chest w/ + w/o Contrast) Hypoxia and elevated D-dimer, possible COVID+ and PE? Report Reasons for examination: Hypoxia, elevated d-dimer, Covid 19. CT scan of the chest were performed with bolus contrast and high resolution scans for CT pulmonary angiographic study, with images post-processed by myself on [employer] workstation, with 3D - volume rendered CT [...] WILLIAM Transcribed Date and Time: 10/29/2020 4:51 [facility], [place] CTA Chest w/ + w/o Contrasto n 10-29-2020 CTA Chest w/ + w/o Contrast Patient Name: REGGIE LEÓN Computed Tomography ACCESSION EXAM DATE/TIME PROCEDURE ORDERING PROVIDER [id number] 10/29/2020 16:29 EST CTA Chest w/ + w/o MD EMILY, FARRUKH MCCORMICK Contrast CPT code 49933 Q9967 Reason For Exam (CTA Chest w/ + w/o Contrast) Hypoxia and elevated D-dimer, possible COVID+ and PE? Report Reasons for examination: Hypoxia, elevated d-dimer, Covid 19. CT scan of the chest were performed with bolus contrast and high resolution scans for CT pulmonary angiographic study, with images post-processed by myself on [employer] workstation, with 3D - volume rendered CT [...] Date and Time: 10/29/2020 4:51 Normal [facility] Comp Panel with Mg Reflexon 10-29-2020 ALP [Catalytic activity/Vol] 71 U/L Normal 38-126 [facility] Comment on above: Performed By: #### H EMOG, CMP3M, CRP2, LDH3, FIBGN, DDI2, APTT, FERR3 #### [facility] [address] [place] [address] ALT [Catalytic activity/Vol] 67 U/L High 0-49 [facility] Comment on above: Result Comment: The ALT test is performed by an updated assay method. Please note that the reference intervals have been changed and are now sex specific. Performed By: #### H EMOG, CMP3M, CRP2, LDH3, FIBGN, DDI2, APTT, FERR3 #### [facility] [address] [place] [address] Anion gap [Moles/Vol] 7 Normal [facility] Comment on above: Performed By: #### H EMOG, CMP3M, CRP2, LDH3, FIBGN, DDI2, APTT, FERR3 #### [facility] [address] [place] [address] AST [Catalytic activity/Vol] 88 U/L High 15-46 [facility] Comment on above: Performed By: #### H EMOG, CMP3M, CRP2, LDH3, FIBGN, DDI2, APTT, FERR3 #### [facility] [address] [place] [address] Bilirubin [Mass/Vol] 0.6 mg/dL Normal 0.2-1.3 [facility] Comment on above: Performed By: #### H EMOG, CMP3M, CRP2, LDH3, FIBGN, DDI2, APTT, FERR3 #### [facility] [address] [place] [address] Calcium [Mass/Vol] 8.9 mg/dL Normal 8.4-10.4 [facility] Comment on above: Performed By: #### H EMOG, CMP3M, CRP2, LDH3, FIBGN, DDI2, APTT, FERR3 #### [facility] [address] [place] [address] CO2 [Moles/Vol] 18 mmol/L Low 22-30 [facility] Comment on above: Performed By: #### H EMOG, CMP3M, CRP2, LDH3, FIBGN, DDI2, APTT, FERR3 #### [facility] [address] [place] [address] Creatinine [Mass/Vol] 2.24 mg/dL High 0.52-1.25 [facility] Comment on above: Performed By: #### H EMOG, CMP3M, CRP2, LDH3, FIBGN, DDI2, APTT, FERR3 #### [facility] [address] [place] [address] GFR/1.73 sq M predicted among blacks MDRD (S/P/Bld) [Vol rate/Area] 36.2 mL/min/{1.73_m2} Abnormal >60 [facility] Comment on above: Performed By: #### H EMOG, CMP3M, CRP2, LDH3, FIBGN, DDI2, APTT, FERR3 #### [facility] [address] [place] [address] GFR/1.73 sq M predicted among non-blacks MDRD (S/P/Bld) [Vol rate/Area] 31.3 mL/min/{1.73_m2} Abnormal >60 [facility] Comment on above: Result Comment: KDIG [...] LDH3, FIBGN, DDI2, APTT, FERR3 #### [facility] [address] [place] [address] Glucose [Mass/Vol] 132 mg/dL High 70-100 [facility] Comment on above: Performed By: #### H EMOG, CMP3M, CRP2, LDH3, FIBGN, DDI2, APTT, FERR3 #### [facility] [address] [place] [address] Protein [Mass/Vol] 6.0 g/dL Low 6.3-8.2 [facility] Comment on above: Performed By: #### H EMOG, CMP3M, CRP2, LDH3, FIBGN, DDI2, APTT, FERR3 #### [facility] [address] [place] [address] Urea nitrogen [Mass/Vol] 33 mg/dL High 7-20 [facility] Comment on above: Performed By: #### H EMOG, CMP3M, CRP2, LDH3, FIBGN, DDI2, APTT, FERR3 #### [facility] [address] [place] [address] Potassium [Moles/Vol] 3.9 mmol/L Normal 3.5-5.1 [facility] Comment on above: Performed By: #### H EMOG, CMP3M, CRP2, LDH3, FIBGN, DDI2, APTT, FERR3 #### [facility] [address] [place] [address] Albumin [Mass/Vol] 3.2 g/dL Low 3.5-5.0 [facility] Comment on above: Performed By: #### H EMOG, CMP3M, CRP2, LDH3, FIBGN, DDI2, APTT, FERR3 #### [facility] [address] [place] [address] Chloride [Moles/Vol] 112 mmol/L High 98-107 [facility] Comment on above: Performed By: #### H EMOG, CMP3M, CRP2, LDH3, FIBGN, DDI2, APTT, FERR3 #### [facility] [address] [place] [address] Sodium [Moles/Vol] 137 mmol/L Normal 135-145 [facility] Comment on above: Performed By: #### H EMOG, CMP3M, CRP2, LDH3, FIBGN, DDI2, APTT, FERR3 #### [facility] [address] [place] [address] ALP [Catalytic activity/Vol] 81 U/L Normal 38-126 [facility] Comment on above: Performed By: #### H EMOG, CMP3M, CRP2, LDH3, FIBGN, DDI2, APTT, FERR3 #### [facility] [address] [place] [address] ALT [Catalytic activity/Vol] 67 U/L High 0-49 [facility] Comment on above: Result Comment: The ALT test is performed by an updated assay method. Please note that the reference intervals have been changed and are now sex specific. Performed By: #### H EMOG, CMP3M, CRP2, LDH3, FIBGN, DDI2, APTT, FERR3 #### [facility] [address] [place] [address] Anion gap [Moles/Vol] 9 Normal [facility] Comment on above: Performed By: #### H EMOG, CMP3M, CRP2, LDH3, FIBGN, DDI2, APTT, FERR3 #### [facility] [address] [place] [address] AST [Catalytic activity/Vol] 86 U/L High 15-46 [facility] Comment on above: Performed By: #### H EMOG, CMP3M, CRP2, LDH3, FIBGN, DDI2, APTT, FERR3 #### [facility] [address] [place] [address] Calcium [Mass/Vol] 8.5 mg/dL Normal 8.4-10.4 [facility] Comment on above: Performed By: #### H EMOG, CMP3M, CRP2, LDH3, FIBGN, DDI2, APTT, FERR3 #### [facility] [address] [place] [address] CO2 [Moles/Vol] 17 mmol/L Low 22-30 [facility] Comment on above: Performed By: #### H EMOG, CMP3M, CRP2, LDH3, FIBGN, DDI2, APTT, FERR3 #### [facility] [address] [place] [address] Glucose [Mass/Vol] 139 mg/dL High 70-100 [facility] Comment on above: Performed By: #### H EMOG, CMP3M, CRP2, LDH3, FIBGN, DDI2, APTT, FERR3 #### [facility] [address] [place] [address] Protein [Mass/Vol] 5.8 g/dL Low 6.3-8.2 [facility] Comment on above: Performed By: #### H EMOG, CMP3M, CRP2, LDH3, FIBGN, DDI2, APTT, FERR3 #### [facility] [address] [place] [address] Urea nitrogen [Mass/Vol] 31 mg/dL High 7-20 [facility] Comment on above: Performed By: #### H EMOG, CMP3M, CRP2, LDH3, FIBGN, DDI2, APTT, FERR3 #### [facility] [address] [place] [address] Bilirubin [Mass/Vol] 0.5 mg/dL Normal 0.2-1.3 [facility] Comment on above: Performed By: #### H EMOG, CMP3M, CRP2, LDH3, FIBGN, DDI2, APTT, FERR3 #### [facility] [address] [place] [address] Creatinine [Mass/Vol] 2.37 mg/dL High 0.52-1.25 [facility] Comment on above: Performed By: #### H EMOG, CMP3M, CRP2, LDH3, FIBGN, DDI2, APTT, FERR3 #### [facility] [address] [place] [address] GFR/1.73 sq M predicted among blacks MDRD (S/P/Bld) [Vol rate/Area] 33.9 mL/min/{1.73_m2} Abnormal >60 [facility] Comment on above: Performed By: #### H EMOG, CMP3M, CRP2, LDH3, FIBGN, DDI2, APTT, FERR3 #### [facility] [address] [place] [address] GFR/1.73 sq M predicted among non-blacks MDRD (S/P/Bld) [Vol rate/Area] 29.2 mL/min/{1.73_m2} Abnormal >60 [facility] Comment on above: Result Comment: KDIG [...] LDH3, FIBGN, DDI2, APTT, FERR3 #### [facility] [address] [place] [address] Potassium [Moles/Vol] 4.3 mmol/L Normal 3.5-5.1 [facility] Comment on above: Performed By: #### H EMOG, CMP3M, CRP2, LDH3, FIBGN, DDI2, APTT, FERR3 #### [facility] [address] [place] [address] Sodium [Moles/Vol] 136 mmol/L Normal 135-145 [facility] Comment on above: Performed By: #### H EMOG, CMP3M, CRP2, LDH3, FIBGN, DDI2, APTT, FERR3 #### [facility] [address] [place] [address] Albumin [Mass/Vol] 3.0 g/dL Low 3.5-5.0 [facility] Comment on above: Performed By: #### H EMOG, CMP3M, CRP2, LDH3, FIBGN, DDI2, APTT, FERR3 #### [facility] [address] [place] [address] Chloride [Moles/Vol] 110 mmol/L High 98-107 [facility] Comment on above: Performed By: #### H EMOG, CMP3M, CRP2, LDH3, FIBGN, DDI2, APTT, FERR3 #### [facility] [address] [place] [address] Comprehensive Metabolic Pane l w/ Reflex to MGon 10-29-2020 Albumin [Mass/Vol] 3.2 g/dL Low 3.5 - 5 g/dL [place] ALP [Catalytic activity/Vol] 71 U/L 38 - 126 U/L [place] ALT [Catalytic activity/Vol] 67 U/L High 0 - 49 U/L [place] Comment on above: The ALT test is perf ormed by an updated assay method. Please note that the reference intervals have been changed and are now sex specific. Anion gap [Moles/Vol] 7 mmol/L [place], [place] AST [Catalytic activity/Vol] 88 U/L High 15 - 46 U/L [place] Bilirubin Ql (U) 0.6 mg/dL 0.2 - 1.3 mg/dL [place] Calcium [Mass/Vol] 8.9 mg/dL 8.4 - 10. 4 mg/dL [place] Chloride [Moles/Vol] 112 mmol/L High 98 - 10 7 mmol/L [place] CO2 [Moles/Vol] 18 mmol/L Low 22 - 30 mmol/L [place] Creatinine [Mass/Vol] 2.24 mg/dL High 0.52 - 1.25 mg/dL [place] EGFR IF NonAfrican [place]altese 31.3 mL/min Abnormal >60 [place] Comment on above: KDIGO guidelines pro [...] (S/P/Bld) [Vol rate/Area] 36.2 mL/min/{1.73_m2} Abnormal >60 [place] Glucose [Mass/Vol] 132 mg/dL High 70 - 100 mg/dL [place] Interpretation and review of laboratory results Abnormal [place] Potassium [Moles/Vol] 3.9 mmol/L 3.5 - 5.1 mmol/L [place] Protein [Mass/Vol] 6.0 g/dL Low 6.3 - 8.2 g/dL [place] Sodium [Moles/Vol] 137 mmol/L 135 - 145 mmol/L [place] Urea nitrogen [Mass/Vol] 33 mg/dL High 7 - 20 mg/dL [place] Test Performed by [facility], [address] [place] [address] [place] Albumin [Mass/Vol] 3.0 g/dL Low 3.5 - 5 g/dL [place] ALP [Catalytic activity/Vol] 81 U/L 38 - 126 U/L [place] ALT [Catalytic activity/Vol] 67 U/L High 0 - 49 U/L [place] Comment on above: The ALT test is perf ormed by an updated assay method. Please note that the reference intervals have been changed and are now sex specific. Anion gap [Moles/Vol] 9 mmol/L [place] AST [Catalytic activity/Vol] 86 U/L High 15 - 46 U/L [place] Bilirubin Ql (U) 0.5 mg/dL 0.2 - 1.3 mg/dL [place] Calcium [Mass/Vol] 8.5 mg/dL 8.4 - 10. 4 mg/dL [place] Chloride [Moles/Vol] 110 mmol/L High 98 - 10 7 mmol/L [place] CO2 [Moles/Vol] 17 mmol/L Low 22 - 30 mmol/L [place] Creatinine [Mass/Vol] 2.37 mg/dL High 0.52 - 1.25 mg/dL [place] EGFR IF NonAfrican Maltese 29.2 mL/min Abnormal >60 [place] Comment on above: KDIGO guidelines pro [...] (S/P/Bld) [Vol rate/Area] 33.9 mL/min/{1.73_m2} Abnormal >60 [place] Glucose [Mass/Vol] 139 mg/dL High 70 - 100 mg/dL [place] Potassium [Moles/Vol] 4.3 mmol/L 3.5 - 5.1 mmol/L [place] Protein [Mass/Vol] 5.8 g/dL Low 6.3 - 8.2 g/dL [place] Sodium [Moles/Vol] 136 mmol/L 135 - 145 mmol/L [place] Urea nitrogen [Mass/Vol] 31 mg/dL High 7 - 20 mg/dL [place] D-Dimer, Innovanceon 12-16-2 020 D-Dimer, Innovance 1.54 mg/L High 0.00-0.50 [facility] Comment on above: Result Comment: Inno quach D-Dimer values of <0.50 mg/L FEU can be used in combination with a pre-test probability model (e.g. Well's) to exclude pulmonary embolism (PE) disease, as well as an aid in the diagnosis of deep vein thrombosis (DVT). Performed By: #### H EMOG, CMP3M, CRP2, LDH3, FIBGN, DDI2, APTT, FERR3 #### [facility] [address] [place] [address] D-Dimer, Innovance 1.23 mg/L High 0.00-0.50 [facility] Comment on above: Result Comment: Inno quach D-Dimer values of <0.50 mg/L FEU can be used in combination with a pre-test probability model (e.g. Well's) to exclude pulmonary embolism (PE) disease, as well as an aid in the diagnosis of deep vein thrombosis (DVT). Performed By: #### H EMOG, CMP3M, CRP2, LDH3, FIBGN, DDI2, APTT, FERR3 #### [facility] [address] [place] [address] D-Dimer, Quantitativeon 12- D-Dimer, Quant 1.54 mg/L High 0 - 0.5 mg/L [facility], [place] Comment on above: Innovance D-Dimer va lues of <0.50 mg/L FEU can be used in combination with a pre-test probability model (e.g. Well's) to exclude pulmonary embolism (PE) disease, as well as an aid in the diagnosis of deep vein thrombosis (DVT). D-Dimer, Quant 1.23 mg/L High 0 - 0.5 mg/L [facility], [place] Comment on above: Innovance D-Dimer va lues of <0.50 mg/L FEU can be used in combination with a pre-test probability model (e.g. Well's) to exclude pulmonary embolism (PE) disease, as well as an aid in the diagnosis of deep vein thrombosis (DVT). EKG 12 Lead - Chest Painon 1 12-30-2019 Michel, [facility] Cardiology Results From [facility] - 10/29/2020 9:41 AM EST [facility] Test Date: 2020-10-28 Pat Name: Reggie León Department: 2AED Room: 468 Gender: M Machine Baster: PARESH : 1965 Requested By: ANDREW SILVER Order Number: [id number] Reading MD: Usama Johnston Intervals [place] Rate: 85 P: 15 [place]: 184 QRS: -12 QRSD: 104 T: 73 QT: 408 QTc: 486 Interpretive Statements SINUS RHYTHM Electronically Signed On 10-29-2020 9:40:09 EST by [facility] Test Date: 2020-10-28 Pat Name: Reggie León Department: 2AED Room: 468 Gender: M Machine Baster: PARESH : 1965 Requested By: ANDREW SILVER Order Number: [id number] Reading MD: Usama Johnston Intervals [place] Rate: 85 P: 15 [place]: 184 QRS: -12 QRSD: 104 T: 73 QT: 408 QTc: 486 Interpretive Statements SINUS RHYTHM Electronically Signed On 10-29-2020 9:40:09 EST by Usama [facility] [place] Ferritinon 10-29-2020 Ferritin [Mass/Vol] 714 ng/mL High 18-464 [facility] Comment on above: Performed By: #### H EMOG, CMP3M, CRP2, LDH3, FIBGN, DDI2, APTT, FERR3 #### [facility] [address] [place] [address] Ferritin [Mass/Vol] 714 ng/mL High 18 - 464 ng/mL [place] Interpretation and review of laboratory results Abnormal [place] Test Performed by [facility], [address], [place], [place] [address] [place] Fibrinogenon 10-29-2020 Fibrinogen 534 mg/dL High 200-400 [facility] Comment on above: Performed By: #### H EMOG, CMP3M, CRP2, LDH3, FIBGN, DDI2, APTT, FERR3 #### [facility] [address] [place] [address] Fibrinogen 534 mg/dL High 200 - 400 mg/dL [place] Fibrinogen 587 mg/dL High 200-400 [facility] Comment on above: Performed By: #### H EMOG, CMP3M, CRP2, LDH3, FIBGN, DDI2, APTT, FERR3 #### [facility] [address] [place] [address] Fibrinogen 587 mg/dL High 200 - 400 mg/dL [place] Hemogramon 10-29-2020 Erythrocyte distribution width (RBC) [Ratio] 14.2 % Normal 11.5-14.5 [facility] Comment on above: Performed By: #### H EMOG, CMP3M, CRP2, LDH3, FIBGN, DDI2, APTT, FERR3 #### [facility] [address] [place] [address] Hematocrit (Bld) [Volume fraction] 37.3 % Low 40.0-52.0 [facility] Comment on above: Performed By: #### H EMOG, CMP3M, CRP2, LDH3, FIBGN, DDI2, APTT, FERR3 #### [facility] [address] [place] [address] Hemoglobin (Bld) [Mass/Vol] 12.6 g/dL Low 13.0-18.0 [facility] Comment on above: Performed By: #### H EMOG, CMP3M, CRP2, LDH3, FIBGN, DDI2, APTT, FERR3 #### [facility] [address] [place] [address] MCH (RBC) [Entitic mass] 29.2 pg Normal 26.0-34.0 [facility] Comment on above: Performed By: #### H EMOG, CMP3M, CRP2, LDH3, FIBGN, DDI2, APTT, FERR3 #### [facility] [address] [place] [address] MCHC (RBC) [Mass/Vol] 33.7 % Normal 32.0-36.0 [facility] Comment on above: Performed By: #### H EMOG, CMP3M, CRP2, LDH3, FIBGN, DDI2, APTT, FERR3 #### [facility] [address] [place] [address] MCV (RBC) [Entitic vol] 86.7 fL Normal 80.0-98.0 [facility] Comment on above: Performed By: #### H EMOG, CMP3M, CRP2, LDH3, FIBGN, DDI2, APTT, FERR3 #### [facility] [address] [place] [address] Platelet mean volume (Bld) [Entitic vol] 7.6 fL Normal 7.4-10.4 [facility] Comment on above: Performed By: #### H EMOG, CMP3M, CRP2, LDH3, FIBGN, DDI2, APTT, FERR3 #### [facility] [address] [place] [address] Platelets (Bld) [#/Vol] 255 10*3/uL Normal 140-440 [facility] Comment on above: Performed By: #### H EMOG, CMP3M, CRP2, LDH3, FIBGN, DDI2, APTT, FERR3 #### [facility] [address] [place] [address] RBC (Bld) [#/Vol] 4.30 10*6/uL Low 4.40-5.90 [facility] Comment on above: Performed By: #### H EMOG, CMP3M, CRP2, LDH3, FIBGN, DDI2, APTT, FERR3 #### [facility] [address] [place] [address] WBC (Bld) [#/Vol] 7.8 10*3/uL Normal 3.6-10.7 [facility] Comment on above: Performed By: #### H EMOG, CMP3M, CRP2, LDH3, FIBGN, DDI2, APTT, FERR3 #### [facility] [address] [place] [address] Hemogram w/ Autodiffon 10-29 Abs Baso Cnt 0.0 10*3/uL Normal 0.0-0.2 [facility] Comment on above: Performed By: #### H EMOG, CMP3M, CRP2, LDH3, FIBGN, DDI2, APTT, FERR3 #### [facility] [address] [place] [address] Abs Neutrophile Cnt 3.5 10*3/uL Normal 1.8-7.0 [facility] Comment on above: Performed By: #### H EMOG, CMP3M, CRP2, LDH3, FIBGN, DDI2, APTT, FERR3 #### [facility] [address] [place] [address] Basophils/100 WBC (Bld) 0.3 % Normal 0.0-2.0 [facility] Comment on above: Performed By: #### H EMOG, CMP3M, CRP2, LDH3, FIBGN, DDI2, APTT, FERR3 #### [facility] [address] [place] [address] Eosinophils (Bld) [#/Vol] 0.0 10*3/uL Normal 0.0-0.5 [facility] Comment on above: Performed By: #### H EMOG, CMP3M, CRP2, LDH3, FIBGN, DDI2, APTT, FERR3 #### [place] [address] [place] [address] Eosinophils/100 WBC (Bld) 0.0 % Low 1.0-6.0 [facility] Comment on above: Performed By: #### H EMOG, CMP3M, CRP2, LDH3, FIBGN, DDI2, APTT, FERR3 #### [facility] [address] [place] [address] Erythrocyte distribution width (RBC) [Ratio] 13.8 % Normal 11.5-14.5 [facility] Comment on above: Performed By: #### H EMOG, CMP3M, CRP2, LDH3, FIBGN, DDI2, APTT, FERR3 #### [facility] [address] [place] [address] Granulocytes/100 WBC (Bld) 79.4 % Normal 40.0-80.0 [facility] Comment on above: Performed By: #### H EMOG, CMP3M, CRP2, LDH3, FIBGN, DDI2, APTT, FERR3 #### [facility] [address] [place] [address] Hematocrit (Bld) [Volume fraction] 36.7 % Low 40.0-52.0 [facility] Comment on above: Performed By: #### H EMOG, CMP3M, CRP2, LDH3, FIBGN, DDI2, APTT, FERR3 #### [facility] [address] [place] [address] Hemoglobin (Bld) [Mass/Vol] 12.2 g/dL Low 13.0-18.0 [facility] Comment on above: Performed By: #### H EMOG, CMP3M, CRP2, LDH3, FIBGN, DDI2, APTT, FERR3 #### [facility] [address] [place] [address] Lymphocytes (Bld) [#/Vol] 0.4 10*3/uL Low 1.0-4.3 [facility] Comment on above: Performed By: #### H EMOG, CMP3M, CRP2, LDH3, FIBGN, DDI2, APTT, FERR3 #### [facility] [address] [place] [address] Lymphocytes/100 WBC (Bld) 8.8 % Low 20.0-40.0 [facility] Comment on above: Performed By: #### H EMOG, CMP3M, CRP2, LDH3, FIBGN, DDI2, APTT, FERR3 #### [facility] [address] [place] [address] MCH (RBC) [Entitic mass] 29.1 pg Normal 26.0-34.0 [facility] Comment on above: Performed By: #### H EMOG, CMP3M, CRP2, LDH3, FIBGN, DDI2, APTT, FERR3 #### [facility] [address] [place] [address] MCHC (RBC) [Mass/Vol] 33.1 % Normal 32.0-36.0 [facility] Comment on above: Performed By: #### H EMOG, CMP3M, CRP2, LDH3, FIBGN, DDI2, APTT, FERR3 #### [facility] [address] [place] [address] MCV (RBC) [Entitic vol] 87.8 fL Normal 80.0-98.0 [facility] Comment on above: Performed By: #### H EMOG, CMP3M, CRP2, LDH3, FIBGN, DDI2, APTT, FERR3 #### [facility] [address] [place] [address] Monocytes (Bld) [#/Vol] 0.5 10*3/uL Normal 0.0-0.8 [facility] Comment on above: Performed By: #### H EMOG, CMP3M, CRP2, LDH3, FIBGN, DDI2, APTT, FERR3 #### [facility] [address] [place] [address] Monocytes/100 WBC (Bld) 11.5 % High 2.0-10.0 [facility] Comment on above: Performed By: #### H EMOG, CMP3M, CRP2, LDH3, FIBGN, DDI2, APTT, FERR3 #### [facility] [address] [place] [address] Platelet mean volume (Bld) [Entitic vol] 7.9 fL Normal 7.4-10.4 [facility] Comment on above: Performed By: #### H EMOG, CMP3M, CRP2, LDH3, FIBGN, DDI2, APTT, FERR3 #### [facility] [address] [place] [address] Platelets (Bld) [#/Vol] 231 10*3/uL Normal 140-440 [facility] Comment on above: Performed By: #### H EMOG, CMP3M, CRP2, LDH3, FIBGN, DDI2, APTT, FERR3 #### [facility] [address] [place] [address] RBC (Bld) [#/Vol] 4.19 10*6/uL Low 4.40-5.90 [facility] Comment on above: Performed By: #### H EMOG, CMP3M, CRP2, LDH3, FIBGN, DDI2, APTT, FERR3 #### [facility] [address] [place] [address] WBC (Bld) [#/Vol] 4.4 10*3/uL Normal 3.6-10.7 [facility] Comment on above: Performed By: #### H EMOG, CMP3M, CRP2, LDH3, FIBGN, DDI2, APTT, FERR3 #### [facility] [address] [place] [address] LDHon 10-29-2020 LDH 676 U/L High 120-246 [facility] Comment on above: Performed By: #### H EMOG, CMP3M, CRP2, LDH3, FIBGN, DDI2, APTT, FERR3 #### [facility] [address] [place] [address] Lactate Dehydrogenaseon 10-14 LD 676 U/L High 120 - 246 U/L [place] Lithiumon 10-29-2020 [place] [Moles/Vol] 0.7 mmol/L Normal 0.6-1.2 [facility] Comment on above: Performed By: #### H EMOG, CMP3M, CRP2, LDH3, FIBGN, DDI2, APTT, FERR3 #### [facility] [address] [place] [address] [place] Levelon 10-29-2020 [place] Lvl 0.7 mmol/L 0.6 - 1.2 mmol/L [place], [place] Otheron 10-29-2020 Interpretation and review of laboratory results Abnormal [place] Test Performed by [facility], [facility] [address] [place], [place] [id number] [place] [address] Interpretation and review of laboratory results Abnormal [place] Test Performed by [facility], [address] [place], [place] [id number] [place] [address] Interpretation and review of laboratory results Abnormal [place] Test Performed by [facility], [facility] [address] [place], [place] [id number] [place] [address] Procalcitoninon 10-29-2020 Procalcitonin 0.31 ng/mL Abnormal <0.10 [facility] Comment on above: Performed By: #### H EMOG, CMP3M, CRP2, LDH3, FIBGN, DDI2, APTT, FERR3 #### [facility] [address] [place] [address] Interpretation and review of laboratory results Abnormal [place], [place] Procalcitonin 0.31 ng/mL Abnormal <0.10 [place] Sodium [Moles/Vol] See Below [place], [place] Comment on above: PCT <0.50 = Low risk of severe sepsis and/or septic shock. PCT >2.00 = High risk of severe sepsis and/or septic shock. Test Performed by [facility], [address] [place] [id number] [place], [place] Vit D 25-OH, Totalon 020 Vit D 25-OH, Total 69 ng/mL Normal 30-100 [facility] Comment on above: Result Comment: Ther apy is based on measurement of Total 25-OHD with the following classification levels: Less than 20 ng/mL: Indicative of Vit D deficiency 20-30 ng/mL: Suggests Vit D insufficiency Optimal: Greater than or equal to 30 ng/mL Test performed by [employer], measuring Total Vitamin D, not individual fractions. Performed By: #### H EMOG, CMP3M, CRP2, LDH3, FIBGN, DDI2, APTT, FERR3 #### [facility] [address] [place] [address] Vitamin D 25 Hydroxyon 10-29 Vit D, 25-Hydroxy 69 ng/mL 30 - 100 ng/mL [place] Comment on above: Therapy is based on measurement of Total 25-OHD with the following classification levels: Less than 20 ng/mL: Indicative of Vit D deficiency 20-30 ng/mL: Suggests Vit D insufficiency Optimal: Greater than or equal to 30 ng/mL Test performed by [employer], measuring Total Vitamin D, not individual fractions. Test Performed by [facility], [address], [place], [place] [address] [place] Arterial Blood Gas Respirato sarah 10-28-2020 Base Excess -5.8 mmol/L Low -3.0-3.0 [facility] Comment on above: Performed By: #### A BGE #### [facility] [address] [place] [address] CO2 [Moles/Vol] 19.3 mmol/L Low 23.0-27.0 [facility] Comment on above: Performed By: #### A BGE #### [facility] [address] [place] [address] FIO2 21 Normal [facility] Comment on above: Result Comment: Perf ormed by CLIA ID: [id number] [place], [place] Performed By: #### A BGE #### [facility] [address] [place] [address] HCO3 (Bld) [Moles/Vol] 18.3 mmol/L Low 21.0-25.0 [facility] Comment on above: Performed By: #### A BGE #### [facility] [address] [place] [address] Oxygen (Bld) [Partial pressure] 69.8 mm[Hg] Low 80.0-100.0 [facility] Comment on above: Performed By: #### A BGE #### [facility] [address] [place] [address] Oxygen saturation in Blood 93.6 % Low 95.0-100. 0 [facility] Comment on above: Performed By: #### A BGE #### [facility] [address] [place] [address] pCO2 31.2 mm[Hg] Low 35.0-45.0 [facility] Comment on above: Performed By: #### A BGE #### [facility] [address] [place] [address] pH (Bld) 7.376 Normal 7.350-7.450 [facility] Comment on above: Performed By: #### A BGE #### [facility] [address] [place] [address] Brain Natriuretic Peptideon 10-28-2020 Natriuretic peptide B (Bld) [Mass/Vol] 47 pg/mL 0 - 125 pg/mL [facility], [place] CR Chest Portableon 10-28-20 20 CR Chest Portable Patient Name: REGGIE LEÓN Diagnostic Radiology ACCESSION EXAM DATE/TIME PROCEDURE ORDERING PROVIDER [id number] 10/28/2020 15:05 EST CR Chest Portable BALAJI SILVER DANIEL M CPT code 45617 Reason For Exam (CR Chest Portable) dyspnea [...] Date and Time: 10/28/2020 3:21 Normal [facility] Comp Metabolic Panelon 10-28 ALP [Catalytic activity/Vol] 82 U/L Normal 38-126 [facility] Comment on above: Performed By: #### H EMOG, CMP3M, CRP2, LDH3, FIBGN, DDI2, APTT, FERR3 #### [facility] [address] [place] [address] ALT [Catalytic activity/Vol] 60 U/L High 0-49 [facility] Comment on above: Result Comment: The ALT test is performed by an updated assay method. Please note that the reference intervals have been changed and are now sex specific. Performed By: #### H EMOG, CMP3M, CRP2, LDH3, FIBGN, DDI2, APTT, FERR3 #### [facility] [address] [place] [address] Calcium [Mass/Vol] 8.6 mg/dL Normal 8.4-10.4 [facility] Comment on above: Performed By: #### H EMOG, CMP3M, CRP2, LDH3, FIBGN, DDI2, APTT, FERR3 #### [facility] [address] [place] [address] Glucose [Mass/Vol] 122 mg/dL High 70-100 [facility] Comment on above: Performed By: #### H EMOG, CMP3M, CRP2, LDH3, FIBGN, DDI2, APTT, FERR3 #### [facility] [address] [place] [address] Protein [Mass/Vol] 6.2 g/dL Low 6.3-8.2 [facility] Comment on above: Performed By: #### H EMOG, CMP3M, CRP2, LDH3, FIBGN, DDI2, APTT, FERR3 #### [facility] [address] [place] [address] Urea nitrogen [Mass/Vol] 35 mg/dL High 7-20 [facility] Comment on above: Performed By: #### H EMOG, CMP3M, CRP2, LDH3, FIBGN, DDI2, APTT, FERR3 #### [facility] [address] [place] [address] Anion gap [Moles/Vol] 9 Normal [facility] Comment on above: Performed By: #### H EMOG, CMP3M, CRP2, LDH3, FIBGN, DDI2, APTT, FERR3 #### [facility] [address] [place] [address] AST [Catalytic activity/Vol] 87 U/L High 15-46 [facility] Comment on above: Performed By: #### H EMOG, CMP3M, CRP2, LDH3, FIBGN, DDI2, APTT, FERR3 #### [facility] [address] [place] [address] Bilirubin [Mass/Vol] 0.6 mg/dL Normal 0.2-1.3 [facility] Comment on above: Performed By: #### H EMOG, CMP3M, CRP2, LDH3, FIBGN, DDI2, APTT, FERR3 #### [facility] [address] [place] [address] CO2 [Moles/Vol] 22 mmol/L Normal 22-30 [facility] Comment on above: Performed By: #### H EMOG, CMP3M, CRP2, LDH3, FIBGN, DDI2, APTT, FERR3 #### [facility] [address] [place] [address] Creatinine [Mass/Vol] 2.96 mg/dL High 0.52-1.25 [facility] Comment on above: Performed By: #### H EMOG, CMP3M, CRP2, LDH3, FIBGN, DDI2, APTT, FERR3 #### [facility] [address] [place] [address] GFR/1.73 sq M predicted among blacks MDRD (S/P/Bld) [Vol rate/Area] 25.9 mL/min/{1.73_m2} Abnormal >60 [facility] Comment on above: Performed By: #### H EMOG, CMP3M, CRP2, LDH3, FIBGN, DDI2, APTT, FERR3 #### [facility] [address] [place] [address] GFR/1.73 sq M predicted among non-blacks MDRD (S/P/Bld) [Vol rate/Area] 22.3 mL/min/{1.73_m2} Abnormal >60 [facility] Comment on above: Result Comment: KDIG [...] LDH3, FIBGN, DDI2, APTT, FERR3 #### [facility] [address] [place] [address] Chloride [Moles/Vol] 101 mmol/L Normal 98-107 [facility] Comment on above: Performed By: #### H EMOG, CMP3M, CRP2, LDH3, FIBGN, DDI2, APTT, FERR3 #### [facility] [address] [place] [address] Potassium [Moles/Vol] 3.1 mmol/L Low 3.5-5.1 [facility] Comment on above: Performed By: #### H EMOG, CMP3M, CRP2, LDH3, FIBGN, DDI2, APTT, FERR3 #### [facility] [address] [place] [address] Sodium [Moles/Vol] 133 mmol/L Low 135-145 [facility] Comment on above: Performed By: #### H EMOG, CMP3M, CRP2, LDH3, FIBGN, DDI2, APTT, FERR3 #### [facility] [address] [place] [address] Albumin [Mass/Vol] 3.3 g/dL Low 3.5-5.0 [facility] Comment on above: Performed By: #### H EMOG, CMP3M, CRP2, LDH3, FIBGN, DDI2, APTT, FERR3 #### [facility] [address] [place] [address] Complete Urinalysison 2019 Amorphous Crystal Few Abnormal Negative [facility] Comment on above: Result Comment: . Performed By: #### C UA2 #### [facility] [address] [place] [address] Appearance (U) Clear Normal Clear [facility] Comment on above: Result Comment: . Performed By: #### C UA2 #### [facility] [address] [place] [address] Bacteria LM.HPF (Urine sed) [#/Area] Few Abnormal Negative [facility] Comment on above: Result Comment: . Performed By: #### C UA2 #### [facility] [address] [place] [address] Bilirubin,Urine Negative Normal Negative [facility] Comment on above: Result Comment: . Performed By: #### C UA2 #### [facility] [address] [place] [address] Cast, Granular 0 - 2 Abnormal Negative [facility] Comment on above: Result Comment: . Performed By: #### C UA2 #### [facility] [address] [place] [address] Cast, Hyaline 3 - 5 Abnormal Negative [facility] Comment on above: Result Comment: . Performed By: #### C UA2 #### [facility] [address] [place] [address] Color (U) Yellow Normal Lt. Yellow [facility] Comment on above: Result Comment: . Performed By: #### C UA2 #### [facility] [address] [place] [address] Glucose Ql (U) Normal Normal Normal (<70) [facility] Comment on above: Result Comment: . Performed By: #### C UA2 #### [facility] [address] [place] [address] Ketone,Urine Negative Normal Negative [facility] Comment on above: Result Comment: . Performed By: #### C UA2 #### [facility] [address] [place] [address] Leukocytes,Urine Negative Normal Negative [facility] Comment on above: Result Comment: . Performed By: #### C UA2 #### [facility] [address] [place] [address] Mucous Threads Few Normal Negative [facility] Comment on above: Result Comment: . Performed By: #### C UA2 #### [facility] [address] [place] [address] Nitrites,Urine Negative Normal Negative [facility] Comment on above: Result Comment: . Performed By: #### C UA2 #### [facility] [address] [place] [address] Non-Squamous Epithelial < 1 Abnormal Negative [facility] Comment on above: Result Comment: . Performed By: #### C UA2 #### [facility] [address] [place] [address] Occult Blood,Urine Negative Normal Negative [facility] Comment on above: Result Comment: . Performed By: #### C UA2 #### [facility] [address] [place] [address] pH (U) 5.5 Normal 5.0-8.0 [facility] Comment on above: Result Comment: . Performed By: #### C UA2 #### [facility] [address] [place] [address] Protein (U) [Mass/Vol] 20 mg/dL Abnormal Negative [facility] Comment on above: Result Comment: . Performed By: #### C UA2 #### [facility] [address] [place] [address] RBC LM.HPF (Urine sed) [#/Area] 0 - 2 Normal 0-2 [facility] Comment on above: Result Comment: . Performed By: #### C UA2 #### [facility] [address] [place] [address] Specific [place],Urine 1.015 Normal 1.005 - 1.030 [facility] Comment on above: Result Comment: . Performed By: #### C UA2 #### [facility] [address] [place] [address] Squamous Epithelial 0 - 2 Normal 3-5 [facility] Comment on above: Result Comment: . Performed By: #### C UA2 #### [facility] [address] [place] [address] Urobilinogen,Urine Normal Normal Normal (0-1) [facility] Comment on above: Result Comment: . Performed By: #### C UA2 #### [facility] [address] [place] [address] WBC LM.HPF (Urine sed) [#/Area] 0 - 2 Normal 0-5 [facility] Comment on above: Result Comment: . Performed By: #### C UA2 #### [facility] [address] [place] [address] Comprehensive Metabolic Pane rahul 10-28-2020 Albumin [Mass/Vol] 3.3 g/dL Low 3.5 - 5 g/dL [facility] [place] ALP [Catalytic activity/Vol] 82 U/L 38 - 126 U/L [place] ALT [Catalytic activity/Vol] 60 U/L High 0 - 49 U/L [place] Comment on above: The ALT test is perf ormed by an updated assay method. Please note that the reference intervals have been changed and are now sex specific. Anion gap [Moles/Vol] 9 mmol/L [place], [place] AST [Catalytic activity/Vol] 87 U/L High 15 - 46 U/L [place] Bilirubin Ql (U) 0.6 mg/dL 0.2 - 1.3 mg/dL [place] Calcium [Mass/Vol] 8.6 mg/dL 8.4 - 10. 4 mg/dL [place] Chloride [Moles/Vol] 101 mmol/L 98 - 10 7 mmol/L [place] CO2 [Moles/Vol] 22 mmol/L 22 - 30 mmol/L [place] Creatinine [Mass/Vol] 2.96 mg/dL High 0.52 - 1.25 mg/dL [place] EGFR IF NonAfrican [place] 22.3 mL/min Abnormal >60 [place] Comment on above: KDIGO guidelines pro [...] (S/P/Bld) [Vol rate/Area] 25.9 mL/min/{1.73_m2} Abnormal >60 [place] Glucose [Mass/Vol] 122 mg/dL High 70 - 100 mg/dL [place] Interpretation and review of laboratory results Abnormal [place] Potassium [Moles/Vol] 3.1 mmol/L Low 3.5 - 5.1 mmol/L [place] Protein [Mass/Vol] 6.2 g/dL Low 6.3 - 8.2 g/dL [place] Sodium [Moles/Vol] 133 mmol/L Low 135 - 145 mmol/L [place] Urea nitrogen [Mass/Vol] 35 mg/dL High 7 - 20 mg/dL [place] ED Provider Noteon 0 ED Provider Note [facility]: Reggie León : 1965 Date of Evaluation: 10/28/2020 ED Supervising Physician: Otf Long, DO I independently examined and evaluated Reggie León. In brief, Reggie León is a 55 y.o. male that presents to the emergency department with increased shortness of breath from his skilled nursing. Patient has a known COVID-19 infection. Patient [...] and cough. CELINA spoke with the patient's skilled nursing who states that he was on 4 [...] Otf Long DO 10/28/20 1823 Normal [facility] ED [facility] e[facility]GENCY dEPARTMENT eNCOUnter Pt Name: Reggie [...] History Narrative ? Not on file SCREENINGS @FLOW([id number])@ PHYSICAL EXAM (5+ for level 4, 8+ [...] Department physician in the absence of a master scheduler. Please see their accompanying note for interpretation. RADIOLOGY (Per EmergencyPhysician): Interpretation per the Radiologist below, if available at the time of this note: Xr Chest Portable Result Date: 10/28/2020 Patient Name: REGGIE LEÓN Diagnostic Radiology ACCESSION EXAM DATE/TIME PROCEDURE ORDERING PROVIDER [id number] 10/28/2020 15:05 EST CR Chest Portable BALAJI SILVER DANIEL M CPT code 12287 Reason For Exam (CR Chest Portable) dyspnea [...] (*) eGFR 25.9 (*) EGFR IF NonAfrican Maltese 22.3 (*) Albumin,Serum 3.3 (*) Total Protein 6.2 (*) ALT 60 (*) AST 87 (*) All other components within normal limits Narrative: Test Performed by [facility], [address] [place] [address] CBC WITH AUTO DIFFERENTIAL - Abnormal; Notable for the following components: Hemoglobin 12.9 (*) Hematocrit 38.1 (*) Lymphocyte % 13.6 (*) Monocytes 17.8 (*) Eosinophils 0.8 (*) Absolute Lymph # 0.6 (*) All other components within normal limits Narrative: Test Performed by [facility], [address] [place] [address] POCT ARTERIAL - Abnormal; Notable for the following components: pCO2, Arterial 31.2 (*) pO2, Arterial 69.8 (*) HCO3, Arterial 18.3 (*) Base Excess, Arterial -5.8 (*) O2 Sat, Arterial 93.6 (*) TCO2, Arterial 19.3 (*) All other components within normal limits Narrative: Test Performed by [facility], [address] [place] [address] BRAIN NATRIURETIC PEPTIDE Narrative: Test Performed by [facility], [address] [place] [address] TROPONIN Narrative: Test Performed by [facility], [facility] [address] [place] [address] LACTIC ACID, PLASMA Narrative: Test Performed by [facility], [address], [place], [place] [address] URINALYSIS POCT ARTERIAL All other labs were [...] Provider NICKI Bustillo CNP 10/28/20 1750 Normal [facility] Hemogram (CBC) w/Auto Diffon 12-15-2020 Absolute Baso # 0.0 10*3/uL 0 - 0.2 10*3/uL [place] Absolute Neut # 3.1 10*3/uL 1.8 - 7 10*3/uL [place] Basophils/100 WBC (Bld) 0.7 % 0 - 2 % [place] Eosinophils (Bld) [#/Vol] 0.0 10*3/uL 0 - 0.5 10*3/uL [place] Eosinophils/100 WBC (Bld) 0.8 % Low 1 - 6 % [place] Erythrocyte distribution width (RBC) [Ratio] 14.0 % 11.5 - 14.5 % [place] Granulocytes/100 WBC (Bld) 67.1 % 40 - 80 % [place] Hematocrit (Bld) [Volume fraction] 38.1 % Low 40 - 52 % [place] Hemoglobin (Bld) [Mass/Vol] 12.9 g/dL Low 13 - 18 g/dL [place] Interpretation and review of laboratory results Abnormal [place] Lymphocytes (Bld) [#/Vol] 0.6 10*3/uL Low 1 - 4.3 10*3/uL [place] Lymphocytes/100 WBC (Bld) 13.6 % Low 20 - 40 % [place] MCH (RBC) [Entitic mass] 29.2 pg 26 - 34 pg [place] MCHC (RBC) [Mass/Vol] 33.9 % 32 - 36 % [place] MCV (RBC) [Entitic vol] 86.2 fL 80 - 98 fL [place] Monocytes (Bld) [#/Vol] 0.8 10*3/uL 0 - 0.8 10*3/uL [place] Monocytes/100 WBC (Bld) 17.8 % High 2 - 10 % [place] Platelet mean volume (Bld) [Entitic vol] 7.4 fL 7.4 - 10.4 fL [place] Platelets (Bld) [#/Vol] 223 10*3/uL 140 - 440 10*3/uL [place] RBC (Bld) [#/Vol] 4.42 10*6/uL 4.4 - 5.9 10*6/uL [place] WBC (Bld) [#/Vol] 4.6 10*3/uL 3.6 - 10.7 10*3/uL [place] Test Performed by [facility], [address] [place] [address] [place] Hemogram w/ Autodiffon 10-28 Abs Baso Cnt 0.0 10*3/uL Normal 0.0-0.2 [facility] Comment on above: Performed By: #### H EMOG, CMP3M, CRP2, LDH3, FIBGN, DDI2, APTT, FERR3 #### [facility] [address] [place] [address] Abs Neutrophile Cnt 3.1 10*3/uL Normal 1.8-7.0 [facility] Comment on above: Performed By: #### H EMOG, CMP3M, CRP2, LDH3, FIBGN, DDI2, APTT, FERR3 #### [facility] [address] [place] [address] Basophils/100 WBC (Bld) 0.7 % Normal 0.0-2.0 [facility] Comment on above: Performed By: #### H EMOG, CMP3M, CRP2, LDH3, FIBGN, DDI2, APTT, FERR3 #### [facility] [address] [place] [address] Eosinophils (Bld) [#/Vol] 0.0 10*3/uL Normal 0.0-0.5 [facility] Comment on above: Performed By: #### H EMOG, CMP3M, CRP2, LDH3, FIBGN, DDI2, APTT, FERR3 #### [facility] [address] [place] [address] Eosinophils/100 WBC (Bld) 0.8 % Low 1.0-6.0 [facility] Comment on above: Performed By: #### H EMOG, CMP3M, CRP2, LDH3, FIBGN, DDI2, APTT, FERR3 #### [facility] [address] [place] [address] Erythrocyte distribution width (RBC) [Ratio] 14.0 % Normal 11.5-14.5 [facility] Comment on above: Performed By: #### H EMOG, CMP3M, CRP2, LDH3, FIBGN, DDI2, APTT, FERR3 #### [facility] [address] [place] [address] Granulocytes/100 WBC (Bld) 67.1 % Normal 40.0-80.0 [facility] Comment on above: Performed By: #### H EMOG, CMP3M, CRP2, LDH3, FIBGN, DDI2, APTT, FERR3 #### [facility] [address] [place] [address] Hematocrit (Bld) [Volume fraction] 38.1 % Low 40.0-52.0 [facility] Comment on above: Performed By: #### H EMOG, CMP3M, CRP2, LDH3, FIBGN, DDI2, APTT, FERR3 #### [facility] [address] [place] [address] Hemoglobin (Bld) [Mass/Vol] 12.9 g/dL Low 13.0-18.0 [facility] Comment on above: Performed By: #### H EMOG, CMP3M, CRP2, LDH3, FIBGN, DDI2, APTT, FERR3 #### [facility] [address] [place] [address] Lymphocytes (Bld) [#/Vol] 0.6 10*3/uL Low 1.0-4.3 [facility] Comment on above: Performed By: #### H EMOG, CMP3M, CRP2, LDH3, FIBGN, DDI2, APTT, FERR3 #### [facility] [address] [place] [address] Lymphocytes/100 WBC (Bld) 13.6 % Low 20.0-40.0 [facility] Comment on above: Performed By: #### H EMOG, CMP3M, CRP2, LDH3, FIBGN, DDI2, APTT, FERR3 #### [facility] [address] [place] [address] MCH (RBC) [Entitic mass] 29.2 pg Normal 26.0-34.0 [facility] Comment on above: Performed By: #### H EMOG, CMP3M, CRP2, LDH3, FIBGN, DDI2, APTT, FERR3 #### [facility] [address] [place] [address] MCHC (RBC) [Mass/Vol] 33.9 % Normal 32.0-36.0 [facility] Comment on above: Performed By: #### H EMOG, CMP3M, CRP2, LDH3, FIBGN, DDI2, APTT, FERR3 #### [facility] [address] [place] [address] MCV (RBC) [Entitic vol] 86.2 fL Normal 80.0-98.0 [facility] Comment on above: Performed By: #### H EMOG, CMP3M, CRP2, LDH3, FIBGN, DDI2, APTT, FERR3 #### [facility] [address] [place] [address] Monocytes (Bld) [#/Vol] 0.8 10*3/uL Normal 0.0-0.8 [facility] Comment on above: Performed By: #### H EMOG, CMP3M, CRP2, LDH3, FIBGN, DDI2, APTT, FERR3 #### [facility] [address] [place] [address] Monocytes/100 WBC (Bld) 17.8 % High 2.0-10.0 [facility] Comment on above: Performed By: #### H EMOG, CMP3M, CRP2, LDH3, FIBGN, DDI2, APTT, FERR3 #### [facility] [address] [place] [address] Platelet mean volume (Bld) [Entitic vol] 7.4 fL Normal 7.4-10.4 [facility] Comment on above: Performed By: #### H EMOG, CMP3M, CRP2, LDH3, FIBGN, DDI2, APTT, FERR3 #### [facility] [address] [place] [address] Platelets (Bld) [#/Vol] 223 10*3/uL Normal 140-440 [facility] Comment on above: Performed By: #### H EMOG, CMP3M, CRP2, LDH3, FIBGN, DDI2, APTT, FERR3 #### [facility] [address] [place] [address] RBC (Bld) [#/Vol] 4.42 10*6/uL Normal 4.40-5.90 [facility] Comment on above: Performed By: #### H EMOG, CMP3M, CRP2, LDH3, FIBGN, DDI2, APTT, FERR3 #### [facility] [address] [place] [address] WBC (Bld) [#/Vol] 4.6 10*3/uL Normal 3.6-10.7 [facility] Comment on above: Performed By: #### H EMOG, CMP3M, CRP2, LDH3, FIBGN, DDI2, APTT, FERR3 #### [facility] [address] [place] [address] Lactic Acidon 10-28-2020 Lactate [Moles/Vol] 1.6 mmol/L Normal 0.7-2.0 [facility] Comment on above: Performed By: #### H EMOG, CMP3M, CRP2, LDH3, FIBGN, DDI2, APTT, FERR3 #### [facility] [address] [place] [address] Lactic Acid, Plasmaon 2019 Lactate [Moles/Vol] 1.6 mmol/L 0.7 - 2 mmol/L [facility], [place] NT pro BNPon 10-28-2020 Natriuretic peptide B (Bld) [Mass/Vol] 47 pg/mL Normal 0-125 [facility] Comment on above: Performed By: #### H EMOG, CMP3M, CRP2, LDH3, FIBGN, DDI2, APTT, FERR3 #### [facility] [address] [place] [address] Otheron 10-28-2020 Test Performed by [facility], [address] [place], [place], [place] [id number] [place] [address] Test Performed by [facility], [address] [place], [place] [address] [place], [place] POCT Arterialon 10-28-2020 Base Excess, Arterial -5.8 mmol/L Low -3 - 3 mmol/L [place] HCO3, Arterial 18.3 mmol/L Low 21 - 25 mmol/L [place] Interpretation and review of laboratory results Abnormal [place] Oxygen saturation in Blood 93.6 % Low 95 - 100 % [place] pCO2, Arterial 31.2 mm[Hg] Low 35 - 45 mm[Hg] [place] pH, Arterial 7.376 [place] pO2, Arterial 69.8 mm[Hg] Low 80 - 100 mm[Hg] [place] Sodium [Moles/Vol] 21 mmol/L [place] Comment on above: Performed by CLIA ID : [id number] [place], [place] TCO2, Arterial 19.3 mmol/L Low 23 - 27 mmol/L [place] Test Performed by [facility], [address] [place], [place] [id number] [place] [address] Procalcitoninon 10-28-2020 Interpretation See Below Normal [facility] Comment on above: Result Comment: PCT <0.50 = Low risk of severe sepsis and/or septic shock. PCT >2.00 = High risk of severe sepsis and/or septic shock. Performed By: #### H EMOG, CMP3M, CRP2, LDH3, FIBGN, DDI2, APTT, FERR3 #### [facility] [address] [place] [address] Respiratory Panel, Molecular , with COVID-19 (Restricted: [...] management decisions. This assay was developed by [employer] and distributed under an Emergency Use Authorization (EUA) granted by the FDA for the qualitative detection of SARS-CoV-2 nucleic acid. Provider and patient fact sheets can be found at https://www.fda.gov/m edia/149340/download and https://www.fda.gov/m edia/373832/download. [place] Test Performed by [email or web address], [address] [place] [address] [place] Troponin Ion 10-28-2020 Troponin I.cardiac [Mass/Vol] ng/mL Normal 0.000-0.034 [facility] Comment on above: Result Comment: . Performed By: #### H EMOG, CMP3M, CRP2, LDH3, FIBGN, DDI2, APTT, FERR3 #### [email or web address] [address] [place] [address] Troponin x1on 10-28-2020 Troponin I.cardiac [Mass/Vol] ng/mL 0 - 0.034 ng/mL [place] Comment on above: . Urinalysison 10-28-2020 AMORPHOUS CRYSTAL Few Abnormal Negative /[HPF] [place] Comment on above: . Appearance (U) Clear Clear NA [place] Comment on above: . Bacteria, UA Few Abnormal Negative /[HPF] [place] Comment on above: . Bilirubin Urine Negative Negative mg/dL [place] Comment on above: . Color (U) Yellow Lt. Yellow NA [place] Comment on above: . Glucose, Ur Normal Normal (<70) mg/dL [place] Comment on above: . Granular Casts, UA 0-2 Abnormal Negative /[LPF] [place] Comment on above: . Hyaline Casts, UA 3-5 Abnormal Negative /[LPF] [place] Comment on above: . Interpretation and review of laboratory results Abnormal [place] Ketones Ql (U) Negative Negative mg/dL [place] Comment on above: . LEUKOCYTES, UA Negative Negative Mary/uL [place] Comment on above: . Mucous Threads Few Negative /[LPF] [place] Comment on above: . Nitrite, Urine Negative Negative NA [place] Comment on above: . Non-Squamous Epithelial <1 Abnormal Nega tive /[HPF] [place] Comment on above: . Occult Blood,Urine Negative Negative mg/dL [place] Comment on above: . pH (U) 5.5 [pH] [place] Comment on above: . Protein (U) [Mass/Vol] 20 mg/dL Abnormal Negative [place] Comment on above: . RBC (U) [#/Vol] 0-2 0 - 2 /[HPF] [place] Comment on above: . Specific [place], Urine 1.015 M [place] Comment on above: . Squam Epithel, UA 0-2 3 - 5 /[HPF] [place] Comment on above: . Urobilinogen, Urine Normal Normal (0-1) mg/dL [place] Comment on above: . WBC, UA 0-2 0 - 5 /[HPF] [place] Comment on above: . Test [facility] by [facility], [address], [place], [place] [address] [place] XR CHEST PORTABLEon 10-28-20 Michel, [facility] Incoming [facility] 10/28/2020 3:21 PM EST Patient Name: REGGIE LEÓN Diagnostic Radiology ACCESSION EXAM DATE/TIME PROCEDURE ORDERING PROVIDER [id number] 10/28/2020 15:05 EST CR Chest Portable BALAJI SILVERANDREW [facility] CPT code 06346 Reason For Exam (CR Chest Portable) dyspnea [...] JOHN Transcribed Date and Time: 10/28/2020 3:21 [place] Patient Name: REGGIE LEÓN Diagnostic Radiology ACCESSION EXAM DATE/TIME PROCEDURE ORDERING PROVIDER [id number] 10/28/2020 15:05 EST CR Chest Portable BALJAI SILVER DANIEL M CPT code 41344 Reason For Exam (CR Chest Portable) dyspnea [...] JOHN Transcribed Date and Time: 10/28/2020 3:21 [place] BMP with eGFRon 05-05-2020 Age - Reported 54 years Normal [facility] Comment on above: Performed By: #### 2 99559 #### [facility],[address] [place] [address] Anion gap [Moles/Vol] 11 mmol/L Normal 10 - 20 [facility] Comment on above: Performed By: #### 2 86469 #### [facility],[address] [place] [address] Calcium [Mass/Vol] 9.5 mg/dL Normal 8.6 - 10.2 [facility] Comment on above: Performed By: #### 2 93111 #### [facility],[address] [place] [address] CO2 [Moles/Vol] 24.7 mmol/L Normal 21.0 - 31.0 [facility] Comment on above: Performed By: #### 2 80344 #### [facility],[address] [place] [address] GFR/1.73 sq M predicted among non-blacks MDRD (S/P/Bld) [Vol rate/Area] 27 ML/MINUTE Low 60 - 999 [facility] Comment on above: Performed By: #### 2 91705 #### [facility],[address] [place] [address] GFR/1.73 sq M predicted among non-blacks MDRD (S/P/Bld) [Vol rate/Area] 33 ML/MINUTE Low 60 - 999 [facility] Comment on above: Result Comment: ACCO RDING TO THE NATIONAL KIDNEY DISEASE EDUCATION PROGRAM(NKDE), A NORMAL eGFR IS A VALUE GREATER THAN OR EQUAL TO 60 ML/MIN/1.73 SQ METERS. CHRONIC KIDNEY DISEASE: <60mL/MIN/1.73 SQ METERS KIDNEY FAILURE: <15mL/MIN/1.73 SQ METERS THIS TEST SHOULD ONLY BE USED FOR PATIENTS 18 YEARS OF AGE AND OLDER. Performed By: #### 2 95870 #### [address] [address] GFR/1.73 sq M predicted among non-blacks MDRD (S/P/Bld) [Vol rate/Area] Normal [facility] Comment on above: Result Comment: BASI C METABOLIC PANEL Performed By: #### 2 71643 #### [address] [address] Glucose [Mass/Vol] 113 mg/dL High 74 - 106 [facility] Comment on above: Performed By: #### 2 03399 #### [address] [address] Potassium [Moles/Vol] 4.1 mmol/L Normal 3.5 - 5.1 [facility] Comment on above: Performed By: #### 2 89492 #### [facility],[address] [place] [address] Urea nitrogen [Mass/Vol] 24 mg/dL High 6 - 20 [facility] Comment on above: Performed By: #### 2 82555 #### [address] [address] CBC + DIFFon 05-05-2020 Basophils (Bld) [#/Vol] 0.10 x10EE3/UL Normal 0.00 - 0 .10 [facility] Comment on above: Performed By: #### 2 09486 #### [facility],[address] [place] [address] Basophils/100 WBC (Bld) 0.9 % Normal 0.0 - 2.0 [facility] Comment on above: Performed By: #### 2 05562 #### [facility],[address] [place] [address] CBC + DIFF Normal [facility] Comment on above: Result Comment: CBC- COMPLETE BLOOD COUNT Performed By: #### 2 04981 #### [facility],[address] [place] [address] Eosinophils (Bld) [#/Vol] 0.40 x10EE3/UL Normal 0.00 - 0.50 [facility] Comment on above: Performed By: #### 2 94420 #### [facility],[address] [place] [address] Eosinophils/100 WBC (Bld) 5.4 % Normal 0.0 - 7.0 [facility] Comment on above: Performed By: #### 2 69947 #### [place] [address] Erythrocyte distribution width (RBC) [Ratio] 12.7 % Normal 12.0 - 15.6 [facility] Comment on above: Performed By: #### 2 22599 #### [facility],[address] [place] [address] Hematocrit (Bld) [Volume fraction] 37.0 % Low 40.0 - 52.0 [facility] Comment on above: Performed By: #### 2 82803 #### [facility],[address] [place], [place] [address] Hemoglobin (Bld) [Mass/Vol] 13.0 g/dL Normal 13.0 - 17.5 [facility] Comment on above: Performed By: #### 2 02844 #### [facility],[address] [place], [place] [address] Lymphocytes (Bld) [#/Vol] 1.50 x10EE3/UL Normal 0.80 - 2.80 [facility] Comment on above: Performed By: #### 2 56075 #### [facility],[address] [place] [address] Lymphocytes/100 WBC (Bld) 18.7 % Low 20.0 - 45. 0 [facility] Comment on above: Performed By: #### 2 34992 #### [facility],[address] [place] [address] MANUAL DIFF N/A Normal [facility] Comment on above: Performed By: #### 2 28971 #### [facility],[address] [place] [address] MCH (RBC) [Entitic mass] 31 pg Normal 27 - 33 [facility] Comment on above: Performed By: #### 2 28706 #### [facility],[address] [place] [address] MCHC (RBC) [Mass/Vol] 35 X10 3 Normal 32 - 36 [facility] Comment on above: Performed By: #### 2 26507 #### [facility],[address] [place] [address] MCV (RBC) [Entitic vol] 87 fL Normal 81 - 98 [facility] Comment on above: Performed By: #### 2 86306 #### [facility],[address] [place] [address] Monocytes (Bld) [#/Vol] 1.20 x10EE3/UL High 0.20 - 1 .00 [facility] Comment on above: Performed By: #### 2 62624 #### [facility],[address] [place] [address] MONOS % 14.8 % High 0.0 - 10.0 [facility] Comment on above: Performed By: #### 2 73322 #### [facility],[address] [place] [address] Morphology Cris[place] (Bld) [Interp] N/A Normal [facility] Comment on above: Performed By: #### 2 91245 #### [facility],[address] [place] [address] Neutrophils (Bld) [#/Vol] 4.80 x10EE3/UL Normal 1.50 - 7.10 [facility] Comment on above: Performed By: #### 2 02182 #### [facility],[address] [place] [address] Neutrophils/100 WBC (Bld) 60.2 % Normal 46.0 - 76. 0 [facility] Comment on above: Performed By: #### 2 45925 #### [facility],[address] [place] [address] Platelet mean volume (Bld) [Entitic vol] 7.2 fL Normal 6.4 - 10.5 [facility] Comment on above: Result Comment: AUTO MATED DIFFERENTIAL Performed By: #### 2 34901 #### [facility],[address] [place] [address] Platelets (Bld) [#/Vol] 286 x10EE3/UL Normal 150 - 450 [facility] Comment on above: Performed By: #### 2 47948 #### [facility],[address] [place] [address] RBC (Bld) [#/Vol] 4.24 x 10EE6/UL Low 4.50 - 6.00 [facility] Comment on above: Performed By: #### 2 00550 #### [facility],[address] [place] [address] WBC (Bld) [#/Vol] 8.0 x 10EE3/UL Normal 4.5 - 10.8 [facility] Comment on above: Performed By: #### 2 18305 #### [facility],[address] [place] [address] CULTURE URINEon 05-05-2020 CULTURE URINE CULTURE URINE _URINE CULTURE_ M I C R O B I O L O G Y R E P O R T FINAL Antimicrobial Susceptibility and Organism Identification Report Specimen Number : [id number] Requested : 05/05/20 Specimen Source : URINE Collected : 05/05/20 03:00 [place] : REJITerra HUANG Received : 05/05/20 03:00 Requesting Physician : FLORECITA ------ Patient/Specimen Tests and Comments Specimen Comments FINAL REPORT: NO GROWTH AT 48 HOURS ------ Tech : Source : URINE ID # : [id number] FINAL Report Date : / / : Collected : 05/05/20 03:00 05/07/[id number].[id number]. 05/06/[id number]. 05/07/[id number] PLETE Normal [facility] Comment on above: Performed By: #### 2 93836 #### [facility],[address] [place] [address] LITHIUMon 05-05-2020 [place] [Moles/Vol] 0.9 mmol/L Normal 0.6 - 1.2 [facility] Comment on above: Performed By: #### 2 03110 #### [facility],[address] [place] [address] RENAL FUNCTION PANELon 05-05 Albumin [Mass/Vol] 3.3 g/dL Low 3.4 - 4.8 [facility] Comment on above: Performed By: #### 2 34729 #### [facility],[address] [place] [address] B/C RATIO 10 ratio Normal 0 - 30 [facility] Comment on above: Performed By: #### 2 52013 #### [facility],[address] [place] [address] Chloride [Moles/Vol] 107 mmol/L Normal 98 - 107 [facility] Comment on above: Performed By: #### 2 21656 #### [facility],[address] [place] [address] Creatinine [Mass/Vol] 2.5 mg/dL High 0.7 - 1.3 [facility] Comment on above: Performed By: #### 2 37689 #### [facility],[address] [place] [address]658 Phosphate [Mass/Vol] 4.9 mg/dL Normal 2.7 - 4.9 [facility] Comment on above: Performed By: #### 2 98054 #### [facility],[address] [place] [address]707 RENAL FUNCTION PANEL Normal [facility] Comment on above: Result Comment: JESSICA L FUNCTION PANEL Performed By: #### 2 67046 #### [facility],[address] [place] [address] Sodium [Moles/Vol] 139 mmol/L Normal 136 - 145 [facility] Comment on above: Performed By: #### 2 89363 #### [facility],[address] [place] [address] URINALYSISon 05-05-2020 Bilirubin [Mass/Vol] Negative Normal NORMAL: NEGATIVE [facility] Comment on above: Performed By: #### 2 44658 #### [facility],[address] [place] [address] Blood Negative Normal NORMAL: NEGATIVE [facility] Comment on above: Performed By: #### 2 36206 #### [facility],[address] [place] [address]92 Clarity (U) clear Normal NORMAL: CLEAR [facility] Comment on above: Performed By: #### 2 41547 #### [facility],[address] [place] [address] Color (U) yellow Normal NORMAL: YELLOW [facility] Comment on above: Performed By: #### 2 59462 #### [facility],[address] [place] [address]75 Glucose [Mass/Vol] NORM Normal NORMAL: NORMAL [facility] Comment on above: Performed By: #### 2 16270 #### [facility],[address] [place] [address]78 Ketone Negative Normal NORMAL: NEGATIVE [facility] Comment on above: Performed By: #### 2 27348 #### [facility],[address] [place] [address]65 Microscopic NOT INDICATED Normal [facility] Comment on above: Performed By: #### 2 37642 #### [facility],[address] [place] [address]70 Nitrite Ql (U) Negative Normal NORMAL: NEGATIVE [facility] Comment on above: Performed By: #### 2 11878 #### [facility],[address] [place] [address]125 pH (Bld) 6 Normal NORMAL: 5.0-8.0 [facility] Comment on above: Performed By: #### 2 02750 #### [facility],[address] [place] [address] Protein (U) [Mass/Vol] Negative Normal JENN L: NEGATIVE [facility] Comment on above: Performed By: #### 2 99407 #### [facility],[address] [place] [address] Sp [place] 1.020 Normal NORMAL: 1.010-1.030 [facility] Comment on above: Performed By: #### 2 68706 #### [facility],[address] [place] [address] Specimen type Nom (Spec) UNSPECIFIED Normal [facility] Comment on above: Performed By: #### 2 03635 #### [facility],[address] [place], [place] [address] Urobilinog NORM Normal NORMAL: NORMAL [facility] Comment on above: Performed By: #### 2 04477 #### [facility],[address] [place] [address] WBC (Bld) [#/Vol] Negative Normal NORMAL: NEGATIVE [facility] Comment on above: Performed By: #### 2 52072 #### [facility],[address] [place], [place] [address] CBC + DIFFon 04-08-2020 Basophils (Bld) [#/Vol] 0.10 x10EE3/UL Normal 0.00 - 0 .10 [facility] Comment on above: Performed By: #### 2 88406 ####[facility],[address] [place] [address] Basophils/100 WBC (Bld) 1.2 % Normal 0.0 - 2.0 [facility] Comment on above: Performed By: #### 2 66131 ####[facility],[address] [place] [address] CBC + DIFF Normal [facility] Comment on above: Result Comment: CBC- COMPLETE BLOOD COUNT Performed By: #### 2 42124 ####[place] [address] Eosinophils (Bld) [#/Vol] 0.40 x10EE3/UL Normal 0.00 - 0.50 [facility] Comment on above: Performed By: #### 2 14537 ####[place] [address] Eosinophils/100 WBC (Bld) 4.3 % Normal 0.0 - 7.0 [facility] Comment on above: Performed By: #### 2 80997 ####[place] [address] Erythrocyte distribution width (RBC) [Ratio] 12.9 % Normal 12.0 - 15.6 [facility] Comment on above: Performed By: #### 2 51076 ####[facility],[address] [place] [address] Hematocrit (Bld) [Volume fraction] 38.7 % Low 40.0 - 52.0 [facility] Comment on above: Performed By: #### 2 71720 ####[place] [address] Hemoglobin (Bld) [Mass/Vol] 13.4 g/dL Normal 13.0 - 17.5 [facility] Comment on above: Performed By: #### 2 35493 ####[place] [address],[place] [address] Lymphocytes (Bld) [#/Vol] 1.80 x10EE3/UL Normal 0.80 - 2.80 [facility] Comment on above: Performed By: #### 2 16530 ####[facility],[address] [place] [address] 15370 Lymphocytes/100 WBC (Bld) 21.9 % Normal 20.0 - 45. 0 [facility] Comment on above: Performed By: #### 2 59945 ####[facility],[address] [place] [address] 69094 MANUAL DIFF N/A Normal [facility] Comment on above: Performed By: #### 2 85589 ####[facility],[address] [place], [place] [address] MCH (RBC) [Entitic mass] 31 pg Normal 27 - 33 [facility] Comment on above: Performed By: #### 2 04684 ####[facility],[address] [place] [address] 17837 MCHC (RBC) [Mass/Vol] 35 X10 3 Normal 32 - 36 [facility] Comment on above: Performed By: #### 2 57815 ####[facility],[address] [place] [address] 54796 MCV (RBC) [Entitic vol] 88 fL Normal 81 - 98 [facility] Comment on above: Performed By: #### 2 68745 ####[facility],[address] [place] [address] 49150 Monocytes (Bld) [#/Vol] 1.20 x10EE3/UL High 0.20 - 1 .00 [facility] Comment on above: Performed By: #### 2 49462 ####[facility],[address] [place] [address] 08420 MONOS % 14.1 % High 0.0 - 10.0 [facility] Comment on above: Performed By: #### 2 79178 ####[facility],[address] [place] [address] 12442 Morphology Crispin (Bld) [Interp] N/A Normal [facility] Comment on above: Performed By: #### 2 16872 ####[facility],[address] [place] [address] 07559 Neutrophils (Bld) [#/Vol] 4.90 x10EE3/UL Normal 1.50 - 7.10 [facility] Comment on above: Performed By: #### 2 98400 ####[facility],[address] [place] [address] 51646 Neutrophils/100 WBC (Bld) 58.5 % Normal 46.0 - 76. 0 [facility] Comment on above: Performed By: #### 2 96905 ####[facility],[address] [place] [address] 70167 Platelet mean volume (Bld) [Entitic vol] 7.4 fL Normal 6.4 - 10.5 [facility] Comment on above: Result Comment: AUTO MATED DIFFERENTIAL Performed By: #### 2 61277 ####[facility],[address] [place] [address] 32106 Platelets (Bld) [#/Vol] 268 x10EE3/UL Normal 150 - 450 [facility] Comment on above: Performed By: #### 2 00842 ####[facility],[address] [place] [address] 87024 RBC (Bld) [#/Vol] 4.41 x 10EE6/UL Low 4.50 - 6.00 [facility] Comment on above: Performed By: #### 2 19693 ####[address] [address] WBC (Bld) [#/Vol] 8.3 x 10EE3/UL Normal 4.5 - 10.8 [facility] Comment on above: Performed By: #### 2 58038 ####[facility] [place] [address] 31236 CULTURE URINEon 04-08-2020 CULTURE URINE CULTURE URINE _URINE CULTURE_ M I C R O B I O L O G Y R E P O R T FINAL Antimicrobial Susceptibility and Organism Identification Report Specimen Number : [id number] Requested : 04/08/20 Specimen Source : CLEAN CATCH URINE Collected : 04/08/20 06:28 Arredondo of Isolation : MEME HUANG Received : 04/08/20 06:28 Requesting Physician : FLORECITA ------ Patient/Specimen Tests and Comments Specimen Comments FINAL REPORT: NO GROWTH AT 48 HOURS ------ Tech : Source : CLEAN CATCH URINE ID # : [id number] FINAL Report Date : / / : Collected : 04/08/20 06:28 04/10/20.1059.BKO. 04/09/20.1214.KLS. 04/10/20.1059.[employer] PLETE Normal [facility] Comment on above: Performed By: #### 2 03765 #### [facility],[address] [place] [address] 96604 HEPATIC FUNCTION PANELon Albumin [Mass/Vol] 3.4 g/dL Normal 3.4 - 4.8 [facility] Comment on above: Performed By: #### 2 36816 ####[facility],[address] [place] [address] 65481 Performed By: #### 2 69179 ####[facility],[address] [place] [address] 89329 ALK PHOS 65 U/L Normal 38 - 126 [facility] Comment on above: Performed By: #### 2 10334 ####[facility],[address] [place] [address] 42047 ALT/SGPT 16 U/L Normal 10 - 40 [facility] Comment on above: Performed By: #### 2 42158 ####[facility],[address] [place] [address] 60159 AST/SGOT 10 U/L Low 13 - 39 [facility] Comment on above: Performed By: #### 2 03429 ####[facility],[address] [place] [address] 26258 Bilirubin [Mass/Vol] 0.4 mg/dL Normal 0.0 - 1.5 [facility] Comment on above: Performed By: #### 2 14133 ####[facility],[address] [place] [address] 79209 Bilirubin.direct [Mass/Vol] 0.1 mg/dL Normal 0.0 - 0.1 [facility] Comment on above: Performed By: #### 2 86314 ####[facility],[address] [place] [address] 81301 HEPATIC FUNCTION PANEL Normal [facility] Comment on above: Result Comment: HEPA TIC FUNCTION PROFILE Performed By: #### 2 25179 ####[facility],[address] [place] [address] 14804 Protein [Mass/Vol] 5.4 g/dL Low 6.4 - 8.3 [facility] Comment on above: Performed By: #### 2 86400 ####[facility],[address] [place] [address] 28881 LITHIUMon 04-08-2020 [place] [Moles/Vol] 0.7 mmol/L Normal 0.6 - 1.2 [facility] Comment on above: Performed By: #### 2 23471 ####[facility],[address] [place], [place] [address] RENAL FUNCTION PANELon 04-08 B/C RATIO 11 ratio Normal 0 - 30 [facility] Comment on above: Performed By: #### 2 17352 ####[facility],[address] [place] [address] 88664 Calcium [Mass/Vol] 9.5 mg/dL Normal 8.6 - 10.2 [facility] Comment on above: Performed By: #### 2 15972 ####[facility],[address] [place] [address] 75060 Chloride [Moles/Vol] 105 mmol/L Normal 98 - 107 [facility] Comment on above: Performed By: #### 2 83808 ####[facility],[address] [place] [address] 38286 CO2 [Moles/Vol] 25.4 mmol/L Normal 21.0 - 31.0 [facility] Comment on above: Performed By: #### 2 28177 ####[facility],[address] [place] [address] 64576 Creatinine [Mass/Vol] 2.1 mg/dL High 0.7 - 1.3 [facility] Comment on above: Performed By: #### 2 79367 ####[facility],[address] [place] [address] 67182 Glucose [Mass/Vol] 105 mg/dL Normal 74 - 106 [facility] Comment on above: Performed By: #### 2 38770 ####[facility],[address] [place] [address] 80609 Phosphate [Mass/Vol] 5.2 mg/dL High 2.7 - 4.9 [facility] Comment on above: Performed By: #### 2 15045 ####[facility],[address] [place] [address] 53186 Potassium [Moles/Vol] 3.8 mmol/L Normal 3.5 - 5.1 [facility] Comment on above: Performed By: #### 2 56440 ####[facility],[address] [place] [address] 02027 RENAL FUNCTION PANEL Normal [facility] Comment on above: Result Comment: JESSICA L FUNCTION PANEL Performed By: #### 2 26290 ####[facility],[address] [place] [address] 18426 Sodium [Moles/Vol] 139 mmol/L Normal 136 - 145 [facility] Comment on above: Performed By: #### 2 25349 ####[facility],[address] [place] [address] 43151 Urea nitrogen [Mass/Vol] 23 mg/dL High 6 - 20 [facility] Comment on above: Performed By: #### 2 95368 ####[facility],[address] [place], [place] [address] URINALYSISon 04-08-2020 Bilirubin [Mass/Vol] Negative Normal NORMAL: NEGATIVE [facility] Comment on above: Performed By: #### 2 42726 #### [facility],[address] [place] [address] 33870 Blood Negative Normal NORMAL: NEGATIVE [facility] Comment on above: Performed By: #### 2 98960 #### [facility],[address] [place], [place] [address] Clarity (U) clear Normal NORMAL: CLEAR [facility] Comment on above: Performed By: #### 2 59458 #### [facility],[address] [place], [place] [address] Color (U) p.yel Normal NORMAL: YELLOW [facility] Comment on above: Performed By: #### 2 99344 #### [facility],[address] [place], [place] [address] Glucose [Mass/Vol] NORM Normal NORMAL: NORMAL [facility] Comment on above: Performed By: #### 2 35815 #### [facility],[address] [place], [place] [address] Ketone Negative Normal NORMAL: NEGATIVE [facility] Comment on above: Performed By: #### 2 83921 #### [facility],[address] [place], [place] [address] Microscopic NOT INDICATED Normal [facility] Comment on above: Performed By: #### 2 05787 #### [facility],[address] [place] [address] 55017 Nitrite Ql (U) Negative Normal NORMAL: NEGATIVE [facility] Comment on above: Performed By: #### 2 63407 #### [facility],[address] [place] [address] 91951 pH (Bld) 6 Normal NORMAL: 5.0-8.0 [facility] Comment on above: Performed By: #### 2 67720 #### [facility],[address] [place] [address] 20756 Protein (U) [Mass/Vol] Negative Normal JENN L: NEGATIVE [facility] Comment on above: Performed By: #### 2 21865 #### [facility],[address] [place] [address] 96772 Sp [place] 1.020 Normal NORMAL: 1.010-1.030 [facility] Comment on above: Performed By: #### 2 07323 #### [facility],[address] [place] [address] 45028 Specimen type Nom (Spec) Clean catch Normal [facility] Comment on above: Performed By: #### 2 99992 #### [facility],[address] [place] [address] 43751 Urobilinog NORM Normal NORMAL: NORMAL [facility] Comment on above: Performed By: #### 2 86521 #### [facility],[address] [place] [address] 54837 WBC (Bld) [#/Vol] Negative Normal NORMAL: NEGATIVE [facility] Comment on above: Performed By: #### 2 72725 #### [facility],[address] [place] [address] 40225 URINE CREATININE AND PROTEIN RATIOon 04-08-2020 CREATININE UR 146.3 mg/dl Normal [facility] Comment on above: Performed By: #### 2 86702 ####[facility],[address] [place] [address] 86951 PC RATIO 0.06 mg/dL Normal 0.00 - 10.00 [facility] Comment on above: Performed By: #### 2 67393 ####[facility],[address] [place] [address] 96109 Protein (U) [Mass/Vol] 9.00 mg/dL Normal 0.00 - 10.00 [facility] Comment on above: Performed By: #### 2 16789 ####[facility],[address] [place], [place] [address] HGB A1C [CCL]on 03-18-2020 HbA1c (Bld) [Mass fraction] 117 mg/dL Normal [facility] Comment on above: Result Comment: eAG: (Estimated average glucose) is a calculated value from HgbA1c and is hardware supplies sales representative of the average blood glucose level in the last 2-3 month period. [facility] [address] [place] [address] Dre Gilliland III, M.D. [id number] Performed By: #### 2 58690 ####[place] [address] HbA1c (Bld) [Mass fraction] 5.7 % High 4.3-5.6 [facility] Comment on above: Result Comment: Amer [place] Diabetes Association guidelines indicate that patients with HgbA1c in the range 5.7-6.4% are at increased risk for development of diabetes, and intervention by lifestyle modification may be beneficial. HgbA1c greater or equal to 6.5% is considered diagnostic of diabetes. Performed By: #### 2 28501 ####[facility],[address] [place], [place] [address] Hemoglobin A1con 03-18-2020 HbA1c (Bld) [Mass fraction] 5.7 % High 4.3-5.6 [facility] Comment on above: Performed By: #### H BA1C #### [facility] [address] [place] [address] HbA1c (Bld) [Mass fraction] 117 mg/dL Normal [facility] Comment on above: Performed By: #### H BA1C #### [facility] [address] [place] [address] LIPID PROFILEon 03-17-2020 Cholesterol [Mass/Vol] 133 mg/dL Normal 0 - 200 [facility] Comment on above: Performed By: #### 2 75773 ####[facility],[address] [place] [address] 58481 Cholesterol in HDL [Mass/Vol] 29 mg/dL Low 40 - 60 [facility] Comment on above: Performed By: #### 2 41545 ####[facility],[address] [place] [address] 69381 Cholesterol in LDL [Mass/Vol] 59 mg/dL Normal 0 - 129 [facility] Comment on above: Performed By: #### 2 89551 ####[facility],[address] [place] [address] 71183 Cholesterol.total/Choleste rol in HDL [Mass ratio] 4.6 {ratio} Normal 0.0 - 5.0 [facility] Comment on above: Performed By: #### 2 35179 ####[facility],[address] [place] [address] 15677 Lipid 1996 panel Normal [facility] Comment on above: Result Comment: LIPI D PROFILE Performed By: #### 2 16441 ####[facility],[address] [place] [address] 12481 Triglyceride [Mass/Vol] 224 mg/dL High 0 - 150 [facility] Comment on above: Performed By: #### 2 75623 ####[facility],[address] [place] [address] 43743 TSHon 03-17-2020 TSH Qn 0.99 uIU/ml Normal 0.34 - 5.60 [facility] Comment on above: Performed By: #### 2 64998 ####[facility],[address] [place] [address] 59512 URINE CREATININE AND PROTEIN RATIOon 03-11-2020 CREATININE UR 65.8 mg/dl Normal [facility] Comment on above: Performed By: #### 2 06404 ####[facility],[address] [place] [address] 67973 PC RATIO 0.06 mg/dL Normal 0.00 - 10.00 [facility] Comment on above: Performed By: #### 2 07093 ####[facility],[address] [place] [address] 35407 Protein (U) [Mass/Vol] mg/dL Normal 0.00 - 10.00 [facility] Comment on above: Performed By: #### 2 69951 ####[facility],[address] [place] [address] 00209 CBC + DIFFon 03-10-2020 Basophils (Bld) [#/Vol] 0.10 x10EE3/UL Normal 0.00 - 0 .10 [facility] Comment on above: Performed By: #### 2 31541 #### [facility],[address] [place] [address] 97022 Basophils/100 WBC (Bld) 1.3 % Normal 0.0 - 2.0 [facility] Comment on above: Performed By: #### 2 66615 #### [facility],[address] [place] [address] 88281 CBC + DIFF Normal [facility] Comment on above: Result Comment: CBC- COMPLETE BLOOD COUNT Performed By: #### 2 59128 #### [facility],[address] [place] [address] 25320 Eosinophils (Bld) [#/Vol] 0.40 x10EE3/UL Normal 0.00 - 0.50 [facility] Comment on above: Performed By: #### 2 29474 #### [facility],[address] [place] [address] 83372 Eosinophils/100 WBC (Bld) 5.7 % Normal 0.0 - 7.0 [facility] Comment on above: Performed By: #### 2 07790 #### [facility],[address] [place] [address] 28906 Erythrocyte distribution width (RBC) [Ratio] 13.3 % Normal 12.0 - 15.6 [facility] Comment on above: Performed By: #### 2 23436 #### [facility],[address] [place] [address] 38988 Hematocrit (Bld) [Volume fraction] 40.4 % Normal 40.0 - 52.0 [facility] Comment on above: Performed By: #### 2 13017 #### [facility],[address] [place] [address] 37683 Hemoglobin (Bld) [Mass/Vol] 13.8 g/dL Normal 13.0 - 17.5 [facility] Comment on above: Performed By: #### 2 19392 #### [facility],[address] [place] [address] 99575 Lymphocytes (Bld) [#/Vol] 1.30 x10EE3/UL Normal 0.80 - 2.80 [facility] Comment on above: Performed By: #### 2 94510 #### [facility],[address] [place] [address] 88245 Lymphocytes/100 WBC (Bld) 20.1 % Normal 20.0 - 45. 0 [facility] Comment on above: Performed By: #### 2 44908 #### [facility],[address] [place] [address] 68487 MANUAL DIFF N/A Normal [facility] Comment on above: Performed By: #### 2 13705 #### [facility],[address] [place] [address] 48439 MCH (RBC) [Entitic mass] 30 pg Normal 27 - 33 [facility] Comment on above: Performed By: #### 2 50568 #### [facility],[address] [place] [address] 90963 MCHC (RBC) [Mass/Vol] 34 X10 3 Normal 32 - 36 [facility] Comment on above: Performed By: #### 2 41046 #### [facility],[address] [place] [address] 19087 MCV (RBC) [Entitic vol] 88 fL Normal 81 - 98 [facility] Comment on above: Performed By: #### 2 21284 #### [facility],[address] [place] [address] 43995 Monocytes (Bld) [#/Vol] 0.90 x10EE3/UL Normal 0.20 - 1 .00 [facility] Comment on above: Performed By: #### 2 27930 #### [facility],[address] [place] [address] 52534 MONOS % 13.7 % High 0.0 - 10.0 [facility] Comment on above: Performed By: #### 2 35761 #### [address] [address] Morphology Crispin (Bld) [Interp] N/A Normal [facility] Comment on above: Performed By: #### 2 21954 #### [address] [address]33 Neutrophils (Bld) [#/Vol] 3.80 x10EE3/UL Normal 1.50 - 7.10 [facility] Comment on above: Performed By: #### 2 09720 #### [place] [id number] Neutrophils/100 WBC (Bld) 59.2 % Normal 46.0 - 76. 0 [facility] Comment on above: Performed By: #### 2 72165 #### [address] [address] Platelet mean volume (Bld) [Entitic vol] 7.8 fL Normal 6.4 - 10.5 [facility] Comment on above: Result Comment: AUTO MATED DIFFERENTIAL Performed By: #### 2 62246 #### [address] [address] Platelets (Bld) [#/Vol] 291 x10EE3/UL Normal 150 - 450 [facility] Comment on above: Performed By: #### 2 55255 #### [facility],[address] [place] [address] 84883 RBC (Bld) [#/Vol] 4.57 x 10EE6/UL Normal 4.50 - 6.00 [facility] Comment on above: Performed By: #### 2 54149 #### [facility],[address] [place] [address] 14479 WBC (Bld) [#/Vol] 6.4 x 10EE3/UL Normal 4.5 - 10.8 [facility] Comment on above: Performed By: #### 2 73089 #### [facility],[address] [place] [address] 26589 LITHIUMon 03-10-2020 [place] [Moles/Vol] 0.8 mmol/L Normal 0.6 - 1.2 [facility] Comment on above: Performed By: #### 2 63198 #### [facility],[address] [place] [address] 72070 RENAL FUNCTION PANEL WITH eG FRon 03-10-2020 Age - Reported 54 years Normal [facility] Comment on above: Performed By: #### 2 02868 ####[facility],[address] [place] [address] 88859 Albumin [Mass/Vol] 3.5 g/dL Normal 3.4 - 4.8 [facility] Comment on above: Performed By: #### 2 81449 ####[facility],[address] [place] [address] 81977 B/C RATIO 8 ratio Normal 0 - 30 [facility] [facility] Comment on above: Performed By: #### 2 49281 ####[facility],[address] [place] [address] 63310 Calcium [Mass/Vol] 9.4 mg/dL Normal 8.6 - 10.2 [facility] Comment on above: Performed By: #### 2 30571 ####[facility],[address] [place] [address] 85293 Chloride [Moles/Vol] 106 mmol/L Normal 98 - 107 [facility] Comment on above: Performed By: #### 2 81836 ####[facility],[address] [place] [address] 95176 CO2 [Moles/Vol] 26.1 mmol/L Normal 21.0 - 31.0 [facility] Comment on above: Performed By: #### 2 85227 ####[address] [address] Creatinine [Mass/Vol] 2.5 mg/dL High 0.7 - 1.3 [facility] Comment on above: Performed By: #### 2 66120 ####[facility],[address] [place] [address] 39228 GFR/1.73 sq M predicted among non-blacks MDRD (S/P/Bld) [Vol rate/Area] 33 ML/MINUTE Low 60 - 999 [facility] Comment on above: Result Comment: ACCO RDING TO THE NATIONAL KIDNEY DISEASE EDUCATION PROGRAM(NKDE), A NORMAL eGFR IS A VALUE GREATER THAN OR EQUAL TO 60 ML/MIN/1.73 SQ METERS. CHRONIC KIDNEY DISEASE: <60mL/MIN/1.73 SQ METERS KIDNEY FAILURE: <15mL/MIN/1.73 SQ METERS THIS TEST SHOULD ONLY BE USED FOR PATIENTS 18 YEARS OF AGE AND OLDER. Performed By: #### 2 65368 ####[facility],[address] [place] [address] 41167 GFR/1.73 sq M predicted among non-blacks MDRD (S/P/Bld) [Vol rate/Area] 27 ML/MINUTE Low 60 - 999 [facility] Comment on above: Performed By: #### 2 93302 ####[facility],[address] [place] [address] 02060 Glucose [Mass/Vol] 114 mg/dL High 74 - 106 [facility] Comment on above: Performed By: #### 2 63699 ####[address] [address] Phosphate [Mass/Vol] 4.6 mg/dL Normal 2.7 - 4.9 [facility] Comment on above: Performed By: #### 2 23292 ####[facility],[address] [place] [address] 40596 Potassium [Moles/Vol] 3.9 mmol/L Normal 3.5 - 5.1 [facility] Comment on above: Performed By: #### 2 66916 ####[facility],[address] [place] [address] 33560 RENAL FUNCTION PANEL WITH eGFR Normal [facility] Comment on above: Result Comment: JESSICA L FUNCTION PANEL Performed By: #### 2 83026 ####[facility],[address] [place] [address] 08288 Sodium [Moles/Vol] 139 mmol/L Normal 136 - 145 [facility] Comment on above: Performed By: #### 2 33297 ####[facility],[address] [place] [address] 03885 Urea nitrogen [Mass/Vol] 21 mg/dL High 6 - 20 [facility] Comment on above: Performed By: #### 2 80009 ####[facility],[address] [place] [address] 75843 CBC + DIFFon 02-04-2020 Basophils (Bld) [#/Vol] 0.10 x10EE3/UL Normal 0.00 - 0 .10 [facility] Comment on above: Performed By: #### 2 86695 #### [facility],[address] [place] [address] 41455 Basophils/100 WBC (Bld) 1.3 % Normal 0.0 - 2.0 [facility] Comment on above: Performed By: #### 2 24597 #### [facility],[address] [place] [address] 54054 CBC + DIFF Normal [facility] Comment on above: Result Comment: CBC- COMPLETE BLOOD COUNT Performed By: #### 2 14751 #### [facility],[address] [place], [place] [id number] Eosinophils (Bld) [#/Vol] 0.40 x10EE3/UL Normal 0.00 - 0.50 [facility] Comment on above: Performed By: #### 2 36155 #### [facility],[address] [place] [address] 92986 Eosinophils/100 WBC (Bld) 5.6 % Normal 0.0 - 7.0 [facility] Comment on above: Performed By: #### 2 65127 #### [place] [address] Erythrocyte distribution width (RBC) [Ratio] 13.2 % Normal 12.0 - 15.6 [facility] Comment on above: Performed By: #### 2 96292 #### [place] [address] Hematocrit (Bld) [Volume fraction] 38.7 % Low 40.0 - 52.0 [facility] Comment on above: Performed By: #### 2 09246 #### [place] [id number] Hemoglobin (Bld) [Mass/Vol] 13.2 g/dL Normal 13.0 - 17.5 [facility] Comment on above: Performed By: #### 2 15700 #### [place] [id number] Lymphocytes (Bld) [#/Vol] 1.40 x10EE3/UL Normal 0.80 - 2.80 [facility] Comment on above: Performed By: #### 2 90809 #### [place] [id number] Lymphocytes/100 WBC (Bld) 18.1 % Low 20.0 - 45. 0 [facility] Comment on above: Performed By: #### 2 78221 #### [facility],[address] [place] [address] MANUAL DIFF N/A Normal [facility] Comment on above: Performed By: #### 2 84845 #### [facility],[address] [place] [address] MCH (RBC) [Entitic mass] 30 pg Normal 27 - 33 [facility] Comment on above: Performed By: #### 2 35456 #### [place] [address] MCHC (RBC) [Mass/Vol] 34 X10 3 Normal 32 - 36 [facility] Comment on above: Performed By: #### 2 22841 #### [place] [address] MCV (RBC) [Entitic vol] 88 fL Normal 81 - 98 [facility] Comment on above: Performed By: #### 2 41117 #### [place] [address] Monocytes (Bld) [#/Vol] 1.10 x10EE3/UL High 0.20 - 1 .00 [facility] Comment on above: Performed By: #### 2 52282 #### [place] [address] MONOS % 13.6 % High 0.0 - 10.0 [facility] Comment on above: Performed By: #### 2 36974 #### [facility],[address] [place], [place] [phone] Morphology Crispin (Bld) [Interp] N/A Normal [facility] Comment on above: Performed By: #### 2 02265 #### [place] [address] Neutrophils (Bld) [#/Vol] 4.80 x10EE3/UL Normal 1.50 - 7.10 [facility] Comment on above: Performed By: #### 2 30317 #### [place] [address],[place] [address] Neutrophils/100 WBC (Bld) 61.4 % Normal 46.0 - 76. 0 [facility] Comment on above: Performed By: #### 2 87269 #### [facility],[address] [place] [address] Platelet mean volume (Bld) [Entitic vol] 7.7 fL Normal 6.4 - 10.5 [facility] Comment on above: Result Comment: AUTO MATED DIFFERENTIAL Performed By: #### 2 65401 #### [address] [address] Platelets (Bld) [#/Vol] 298 x10EE3/UL Normal 150 - 450 [facility] Comment on above: Performed By: #### 2 76811 #### [address] [address] RBC (Bld) [#/Vol] 4.40 x 10EE6/UL Low 4.50 - 6.00 [facility] Comment on above: Performed By: #### 2 93311 #### [address] [address] WBC (Bld) [#/Vol] 7.8 x 10EE3/UL Normal 4.5 - 10.8 [facility] Comment on above: Performed By: #### 2 06296 #### [place] [phone] CULTURE URINEon 02-04-2020 CULTURE URINE CULTURE URINE _URINE CULTURE_ M I C R O B I O L O G Y R E P O R T FINAL Antimicrobial Susceptibility and Organism Identification Report Specimen Number : [id number] Requested : 02/04/20 Specimen Source : URINE Collected : 02/04/20 02:50 Arredondo of Isolation : MEME HUANG Received : 02/04/20 02:50 Requesting Physician : FLORECITA ------ Patient/Specimen Tests and Comments Specimen Comments FINAL REPORT: NO GROWTH AT 48 HOURS ------ Tech : Source : URINE ID # : [id number] FINAL Report Date : / / : Collected : 02/04/20 02:50 02/06/20.1209.KLS. 02/05/20.0910.JLMoe. 02/06/20.9.KLS.[employer] PAIGE Johnson [facility] Comment on above: Performed By: #### 2 15972 #### [facility],[address] [place] [address] 85887 RENAL FUNCTION PANEL WITH eG FRon 02-04-2020 Age - Reported 54 years Normal [facility] Comment on above: Performed By: #### 2 92402 #### [facility],[address] [place] [address] 19180 Albumin [Mass/Vol] 3.5 g/dL Normal 3.4 - 4.8 [facility] Comment on above: Performed By: #### 2 89341 #### [facility],[address] [place] [address] 63775 B/C RATIO 9 ratio Normal 0 - 30 [facility] Comment on above: Performed By: #### 2 13423 #### [facility],[address] [place] [address] 59723 Calcium [Mass/Vol] 9.4 mg/dL Normal 8.6 - 10.2 [facility] Comment on above: Performed By: #### 2 87519 #### [facility],[address] [place] [address] 86971 Chloride [Moles/Vol] 107 mmol/L Normal 98 - 107 [facility] Comment on above: Performed By: #### 2 67853 #### [facility],[address] [place] [address] 35114 CO2 [Moles/Vol] 25.6 mmol/L Normal 21.0 - 31.0 [facility] Comment on above: Performed By: #### 2 82913 #### [facility],[address] [place] [address] 16549 Creatinine [Mass/Vol] 2.4 mg/dL High 0.7 - 1.3 [facility] Comment on above: Performed By: #### 2 97098 #### [facility],[address] [place] [address] 58679 GFR/1.73 sq M predicted among non-blacks MDRD (S/P/Bld) [Vol rate/Area] 28 ML/MINUTE Low 60 - 999 [facility] Comment on above: Performed By: #### 2 74997 #### [facility],[address] [place] [address] 61464 GFR/1.73 sq M predicted among non-blacks MDRD (S/P/Bld) [Vol rate/Area] 34 ML/MINUTE Low 60 - 999 [facility] Comment on above: Result Comment: ACCO RDING TO THE NATIONAL KIDNEY DISEASE EDUCATION PROGRAM(NKDE), A NORMAL eGFR IS A VALUE GREATER THAN OR EQUAL TO 60 ML/MIN/1.73 SQ METERS. CHRONIC KIDNEY DISEASE: <60mL/MIN/1.73 SQ METERS KIDNEY FAILURE: <15mL/MIN/1.73 SQ METERS THIS TEST SHOULD ONLY BE USED FOR PATIENTS 18 YEARS OF AGE AND OLDER. Performed By: #### 2 56617 #### [address] [address] Glucose [Mass/Vol] 114 mg/dL High 74 - 106 [facility] Comment on above: Performed By: #### 2 55641 #### [facility],[address] [place] [address] 01159 Phosphate [Mass/Vol] 4.5 mg/dL Normal 2.7 - 4.9 [facility] Comment on above: Performed By: #### 2 51800 #### [facility],[address] [place] [address] 41978 Potassium [Moles/Vol] 3.8 mmol/L Normal 3.5 - 5.1 [facility] Comment on above: Performed By: #### 2 66993 #### [facility],[address] [place] [address] 44794 RENAL FUNCTION PANEL WITH eGFR Normal [facility] Comment on above: Result Comment: JESSICA L FUNCTION PANEL Performed By: #### 2 68028 #### [facility],[address] [place] [address] 25608 Sodium [Moles/Vol] 139 mmol/L Normal 136 - 145 [facility] Comment on above: Performed By: #### 2 44645 #### [facility],[address] [place] [address] 17744 Urea nitrogen [Mass/Vol] 22 mg/dL High 6 - [facility] Comment on above: Performed By: #### 2 03166 #### [facility],[address] [place] [address] 08224 URINALYSISon 02-04-2020 Amorphous NONE Normal [facility] Comment on above: Performed By: #### 2 74399 #### [facility],[address] [place], [place] [phone] Bacteria LM.HPF (Urine sed) [#/Area] NONE Normal [facility] Comment on above: Performed By: #### 2 16313 #### [facility],[address] [place] [address] 16190 Bilirubin [Mass/Vol] Negative Normal NORMAL: NEGATIVE [facility] Comment on above: Performed By: #### 2 81550 #### [facility],[address] [place], [place] [phone] Blood Negative Normal NORMAL: NEGATIVE [facility] Comment on above: Performed By: #### 2 96249 #### [facility],[address] [place], [place] [phone] Casts LM.LPF (Urine sed) [#/Area] NONE Normal [facility] Comment on above: Performed By: #### 2 74741 #### [facility],[address] [place], [place] [phone] Clarity (U) clear Normal NORMAL: CLEAR [facility] Comment on above: Performed By: #### 2 32002 #### [facility],[address] [place], [place] [phone] Color (U) yellow Normal NORMAL: YELLOW [facility] Comment on above: Performed By: #### 2 90647 #### [facility],[address] [place] [address] 73146 Crystals LM Nom (Urine sed) NONE Normal [facility] Comment on above: Performed By: #### 2 38601 #### [facility],[address] [place] [address] 37295 Epi Cells NONE Normal [facility] Comment on above: Performed By: #### 2 68034 #### [facility],[address] [place] [address] 19805 Glucose [Mass/Vol] NORM Normal NORMAL: NORMAL [facility] Comment on above: Performed By: #### 2 80534 #### [facility],[address] [place] [address] 12742 Ketone Negative Normal NORMAL: NEGATIVE [facility] Comment on above: Performed By: #### 2 97303 #### [facility],[address] [place] [address] 49542 Microscopic SEE BELOW Normal [facility] Comment on above: Result Comment: MICR OSCOPIC Performed By: #### 2 38922 #### [facility],[address] [place] [address] 25353 Mucous NONE Normal [facility] Comment on above: Performed By: #### 2 16286 #### [facility],[address] [place] [address] 43530 Nitrite Ql (U) Negative Normal NORMAL: NEGATIVE [facility] Comment on above: Performed By: #### 2 20519 #### [facility],[address] [place] [address] 30007 pH (Bld) 6 Normal NORMAL: 5.0-8.0 [facility] Comment on above: Performed By: #### 2 24942 #### [facility],[address] [place] [address] 30977 Protein (U) [Mass/Vol] Negative Normal JENN L: NEGATIVE [facility] Comment on above: Performed By: #### 2 51244 #### [facility],[address] [place] [address] 10569 Rbc NONE Normal 0-3/hpf [facility] Comment on above: Performed By: #### 2 31082 #### [facility],[address] [place] [address] Sp [place] 1.015 Normal NORMAL: 1.010-1.030 [facility] Comment on above: Performed By: #### 2 77168 #### [facility],[address] [place] [address] Specimen type Nom (Spec) Clean catch Normal [facility] Comment on above: Performed By: #### 2 63897 #### [facility],[address] [place] [address] Urobilinog NORM Normal NORMAL: NORMAL [facility] Comment on above: Performed By: #### 2 90187 #### [facility],[address] [place] [address] Wbc 1-5 Normal 0-5/hpf [facility] Comment on above: Performed By: #### 2 05881 #### [facility],[address] [place] [address] WBC (Bld) [#/Vol] 25 Abnormal NORMAL: NEGATIVE [facility] Comment on above: Performed By: #### 2 56817 #### [facility],[address] [place], [place] [phone] Yeast LM Ql (Urine sed) NONE Normal [facility] Comment on above: Performed By: #### 2 90655 #### [facility],[address] [place], [place] [phone] URINE CREATININE AND PROTEIN RATIOon 02-04-2020 CREATININE UR 143.6 mg/dl Normal [facility] Comment on above: Performed By: #### 2 91063 #### [facility],[address] [place], [place] [phone] PC RATIO 0.05 mg/dL Normal 0.00 - 10.00 [facility] Comment on above: Performed By: #### 2 53490 #### [facility],[address] [place] [address] 19922 Protein (U) [Mass/Vol] 7.00 mg/dL Normal 0.00 - 10.00 [facility] Comment on above: Performed By: #### 2 14365 #### [facility],[address] [place] [address] 89529 ALBUMIN PLASMAon 01-07-2020 Albumin [Mass/Vol] 3.7 g/dL Normal 3.4 - 4.8 [facility] Comment on above: Performed By: #### 2 02021 #### [facility],[address] [place] [address] 20877 BMP with eGFRon 01-07-2020 Age - Reported 54 years Normal [facility] Comment on above: Performed By: #### 2 50525 #### [facility],[address] [place] [address] 69892 Anion gap [Moles/Vol] 13 mmol/L Normal 10 - 20 [facility] Comment on above: Performed By: #### 2 58353 #### [facility],[address] [place] [address] 88774 Calcium [Mass/Vol] 9.3 mg/dL Normal 8.6 - 10.2 [facility] Comment on above: Performed By: #### 2 88095 #### [facility],[address] [place] [address] 14245 Chloride [Moles/Vol] 108 mmol/L High 98 - 107 [facility] Comment on above: Performed By: #### 2 44828 #### [facility],[address] [place] [address] 50861 CO2 [Moles/Vol] 26.1 mmol/L Normal 21.0 - 31.0 [facility] Comment on above: Performed By: #### 2 04432 #### [facility],[address] [place] [address] 57367 Creatinine [Mass/Vol] 2.0 mg/dL High 0.7 - 1.3 [facility] Comment on above: Performed By: #### 2 71318 #### [facility],[address] [place] [address] 92856 GFR/1.73 sq M predicted among non-blacks MDRD (S/P/Bld) [Vol rate/Area] Normal [facility] Comment on above: Result Comment: BASI C METABOLIC PANEL Performed By: #### 2 19591 #### [facility],[address] [place] [address] 58070 GFR/1.73 sq M predicted among non-blacks MDRD (S/P/Bld) [Vol rate/Area] 42 ML/MINUTE Low 60 - 999 [facility] Comment on above: Result Comment: ACCO RDING TO THE NATIONAL KIDNEY DISEASE EDUCATION PROGRAM(NKDE), A NORMAL eGFR IS A VALUE GREATER THAN OR EQUAL TO 60 ML/MIN/1.73 SQ METERS. CHRONIC KIDNEY DISEASE: <60mL/MIN/1.73 SQ METERS KIDNEY FAILURE: <15mL/MIN/1.73 SQ METERS THIS TEST SHOULD ONLY BE USED FOR PATIENTS 18 YEARS OF AGE AND OLDER. Performed By: #### 2 38277 #### [facility],[address] [place] [address] 16561 GFR/1.73 sq M predicted among non-blacks MDRD (S/P/Bld) [Vol rate/Area] 35 ML/MINUTE Low 60 - 999 [facility] Comment on above: Performed By: #### 2 79816 #### [facility],[address] [place] [address] 93879 Glucose [Mass/Vol] 99 mg/dL Normal 74 - 106 [facility] Comment on above: Performed By: #### 2 98002 #### [facility],[address] [place] [address] 34181 Potassium [Moles/Vol] 3.8 mmol/L Normal 3.5 - 5.1 [facility] Comment on above: Performed By: #### 2 23286 #### [facility],[address] [place] [address] Sodium [Moles/Vol] 143 mmol/L Normal 136 - 145 [facility] Comment on above: Performed By: #### 2 24014 #### [facility],[address] [place] [address] Urea nitrogen [Mass/Vol] 22 mg/dL High 6 - 20 [facility] Comment on above: Performed By: #### 2 03508 #### [facility],[address] [place] [address] CBC + DIFFon 01-07-2020 Basophils (Bld) [#/Vol] 0.10 x10EE3/UL Normal 0.00 - 0 .10 [facility] Comment on above: Performed By: #### 2 11061 #### [facility],[address] [place] [address] 89237 Basophils/100 WBC (Bld) 1.0 % Normal 0.0 - 2.0 [facility] Comment on above: Performed By: #### 2 49395 #### [facility],[address] [place] [address] CBC + DIFF Normal [facility] Comment on above: Result Comment: CBC- COMPLETE BLOOD COUNT Performed By: #### 2 28799 #### [facility],[address] [place], [place] [phone] Eosinophils (Bld) [#/Vol] 0.30 x10EE3/UL Normal 0.00 - 0.50 [facility] Comment on above: Performed By: #### 2 15767 #### [facility],[address] [place] [address] 20557 Eosinophils/100 WBC (Bld) 3.3 % Normal 0.0 - 7.0 [facility] Comment on above: Performed By: #### 2 83042 #### [facility],[address],[place] [address] Erythrocyte distribution width (RBC) [Ratio] 13.1 % Normal 12.0 - 15.6 [facility] Comment on above: Performed By: #### 2 16814 #### [facility],[address] [place] [address] 71562 Hematocrit (Bld) [Volume fraction] 39.0 % Low 40.0 - 52.0 [facility] Comment on above: Performed By: #### 2 86408 #### [facility],[address] [place] [address] 93378 Hemoglobin (Bld) [Mass/Vol] 13.4 g/dL Normal 13.0 - 17.5 [facility] Comment on above: Performed By: #### 2 82089 #### [facility],[address] [place] [address] 19810 Lymphocytes (Bld) [#/Vol] 1.90 x10EE3/UL Normal 0.80 - 2.80 [facility] Comment on above: Performed By: #### 2 18163 #### [facility],[address] [place] [address] 98384 Lymphocytes/100 WBC (Bld) 20.6 % Normal 20.0 - 45. 0 [facility] Comment on above: Performed By: #### 2 [id number] #### [facility],[address] [place] [address] 09172 MANUAL DIFF N/A Normal [facility] Comment on above: Performed By: #### 2 23455 #### [facility],[address] [place] [address] 52701 MCH (RBC) [Entitic mass] 30 pg Normal 27 - 33 [facility] Comment on above: Performed By: #### 2 30053 #### [facility],[address] [place] [address] 75867 MCHC (RBC) [Mass/Vol] 34 X10 3 Normal 32 - 36 [facility] Comment on above: Performed By: #### 2 23889 #### [facility],[address] [place] [address] 80217 MCV (RBC) [Entitic vol] 88 fL Normal 81 - 98 [facility] Comment on above: Performed By: #### 2 87370 #### [facility],[address] [place] [address] 14991 Monocytes (Bld) [#/Vol] 0.90 x10EE3/UL Normal 0.20 - 1 .00 [facility] Comment on above: Performed By: #### 2 21247 #### [address] [address] MONOS % 10.0 % Normal 0.0 - 10.0 [facility] Comment on above: Performed By: #### 2 42670 #### [place] [id number] Morphology Crispin (Bld) [Interp] N/A Normal [facility] Comment on above: Performed By: #### 2 82595 #### [address] [address] Neutrophils (Bld) [#/Vol] 5.90 x10EE3/UL Normal 1.50 - 7.10 [facility] Comment on above: Performed By: #### 2 12191 #### [place] [id number] Neutrophils/100 WBC (Bld) 65.1 % Normal 46.0 - 76. 0 [facility] Comment on above: Performed By: #### 2 22154 #### [place] [id number] Platelet mean volume (Bld) [Entitic vol] 7.7 fL Normal 6.4 - 10.5 [facility] Comment on above: Result Comment: AUTO MATED DIFFERENTIAL Performed By: #### 2 24891 #### [place] [id number] Platelets (Bld) [#/Vol] 260 x10EE3/UL Normal 150 - 450 [facility] Comment on above: Performed By: #### 2 91147 #### [facility],[address] [place] [address] 39751 RBC (Bld) [#/Vol] 4.41 x 10EE6/UL Low 4.50 - 6.00 [facility] Comment on above: Performed By: #### 2 89964 #### [facility],[address] [place] [address] 44072 WBC (Bld) [#/Vol] 9.1 x 10EE3/UL Normal 4.5 - 10.8 [facility] Comment on above: Performed By: #### 2 57773 #### [facility],[address] [place] [address] 31956 CULTURE URINEon 01-07-2020 CULTURE URINE CULTURE URINE _URINE CULTURE_ M I C R O B I O L O G Y R E P O R T FINAL Antimicrobial Susceptibility and Organism Identification Report Specimen Number : [id number] Requested : 01/07/20 Specimen Source : CLEAN CATCH URINE Collected : 01/07/20 02:30 Arredondo of Isolation : MEME HUANG Received : 01/07/20 02:30 Requesting Physician : FLORECITA ------ Patient/Specimen Tests and Comments Specimen Comments FINAL REPORT: NO GROWTH AT 48 HOURS ------ Tech : Source : CLEAN CATCH URINE ID # : [id number] FINAL Report Date : / / : Collected : 01/07/20 02:30 01/09/20.1027.BKO. 01/08/20.1302.KLS. 01/09/20.1027.[employer] PLETE 01/09/20.1027.[employer] Management[employer].to [facility] via fax Normal [facility] Comment on above: Performed By: #### 2 92373 #### [facility],[address] [place] [address] 79309 LITHIUMon 01-07-2020 [place] [Moles/Vol] 0.6 mmol/L Normal 0.6 - 1.2 [facility] Comment on above: Performed By: #### 2 44423 #### [facility],[address] [place] [address] 43135 URINALYSISon 01-07-2020 Bilirubin [Mass/Vol] Negative Normal NORMAL: NEGATIVE [facility] Comment on above: Performed By: #### 2 29952 #### [facility],[address] [place] [address] 56529 Blood Negative Normal NORMAL: NEGATIVE [facility] Comment on above: Performed By: #### 2 19504 #### [facility],[address] [place] [address] 09586 Clarity (U) clear Normal NORMAL: CLEAR [facility] Comment on above: Performed By: #### 2 74987 #### [facility],[address] [place] [address] 72119 Color (U) p.yel Normal NORMAL: YELLOW [facility] Comment on above: Performed By: #### 2 71175 #### [facility],[address] [place] [address] 42697 Glucose [Mass/Vol] NORM Normal NORMAL: NORMAL [facility] Comment on above: Performed By: #### 2 96012 #### [facility],[address] [place] [address] 82364 Ketone Negative Normal NORMAL: NEGATIVE [facility] Comment on above: Performed By: #### 2 90029 #### [facility],[address] [place] [address] 00334 Microscopic NOT INDICATED Normal [facility] Comment on above: Performed By: #### 2 67238 #### [facility],[address] [place] [address] 22708 Nitrite Ql (U) Negative Normal NORMAL: NEGATIVE [facility] Comment on above: Performed By: #### 2 87967 #### [facility],[address] [place] [address] 83555 pH (Bld) 6.5 Normal NORMAL: 5.0-8.0 [facility] Comment on above: Performed By: #### 2 74624 #### [facility],[address] [place] [address] 99343 Protein (U) [Mass/Vol] Negative Normal JENN L: NEGATIVE [facility] Comment on above: Performed By: #### 2 02928 #### [facility],[address] [place] [address] Sp [place] 1.010 Normal NORMAL: 1.010-1.030 [facility] Comment on above: Performed By: #### 2 02543 #### [facility],[address] [place] [address] Specimen type Nom (Spec) Clean catch Normal [facility] Comment on above: Performed By: #### 2 96774 #### [facility],[address] [place] [address] Urobilinog NORM Normal NORMAL: NORMAL [facility] Comment on above: Performed By: #### 2 27500 #### [facility],[address] [place] [address] WBC (Bld) [#/Vol] Negative Normal NORMAL: NEGATIVE [facility] Comment on above: Performed By: #### 2 55459 #### [place] [address] URINE CREATININE AND PROTEIN RATIOon 01-07-2020 CREATININE UR 75.6 mg/dl Normal [facility] Comment on above: Performed By: #### 2 00199 #### [facility],[address] [place], [place] [id number] PC RATIO 0.07 mg/dL Normal 0.00 - 10.00 [facility] Comment on above: Performed By: #### 2 48975 #### [address] [address] Protein (U) [Mass/Vol] mg/dL Normal 0.00 - 10.00 [facility] Comment on above: Performed By: #### 2 04304 #### [facility],[address] [place], [place] [id number] CBC + DIFFon 12-10-2019 Basophils (Bld) [#/Vol] 0.10 x10EE3/UL Normal 0.00 - 0 .10 [facility] Comment on above: Performed By: #### 2 92195 #### [facility],[address] [place] [address] 92623 Basophils/100 WBC (Bld) 0.7 % Normal 0.0 - 2.0 [facility] Comment on above: Performed By: #### 2 59230 #### [facility],[address] [place] [address] 16946 CBC + DIFF Normal [facility] Comment on above: Result Comment: CBC- COMPLETE BLOOD COUNT Performed By: #### 2 42685 #### [facility],[address] [place] [address] 81615 Eosinophils (Bld) [#/Vol] 0.30 x10EE3/UL Normal 0.00 - 0.50 [facility] Comment on above: Performed By: #### 2 10764 #### [facility],[address] [place] [address] 25097 Eosinophils/100 WBC (Bld) 3.2 % Normal 0.0 - 7.0 [facility] Comment on above: Performed By: #### 2 61743 #### [facility],[address] [place] [address] 72677 Erythrocyte distribution width (RBC) [Ratio] 12.7 % Normal 12.0 - 15.6 [facility] Comment on above: Performed By: #### 2 92250 #### [facility],[address] [place] [address] 51023 Hematocrit (Bld) [Volume fraction] 38.7 % Low 40.0 - 52.0 [facility] Comment on above: Performed By: #### 2 09344 #### [facility],[address] [place] [address] 24253 Hemoglobin (Bld) [Mass/Vol] 13.4 g/dL Normal 13.0 - 17.5 [facility] Comment on above: Performed By: #### 2 92150 #### [facility],[address] [place] [address] Lymphocytes (Bld) [#/Vol] 2.10 x10EE3/UL Normal 0.80 - 2.80 [facility] Comment on above: Performed By: #### 2 16531 #### [facility],[address] [place], [place] [address] Lymphocytes/100 WBC (Bld) 21.3 % Normal 20.0 - 45. 0 [facility] Comment on above: Performed By: #### 2 36100 #### [facility],[address] [place] [address] MANUAL DIFF N/A Normal [facility] Comment on above: Performed By: #### 2 07228 #### [place] [id number] MCH (RBC) [Entitic mass] 31 pg Normal 27 - 33 [facility] Comment on above: Performed By: #### 2 12219 #### [place] [id number] MCHC (RBC) [Mass/Vol] 35 X10 3 Normal 32 - 36 [facility] Comment on above: Performed By: #### 2 35575 #### [facility],[address] [place] [address] MCV (RBC) [Entitic vol] 89 fL Normal 81 - 98 [facility] Comment on above: Performed By: #### 2 41936 #### [place] [id number] Monocytes (Bld) [#/Vol] 1.00 x10EE3/UL Normal 0.20 - 1 .00 [facility] Comment on above: Performed By: #### 2 51859 #### [facility],[address] [place] [address] 89505 MONOS % 10.5 % High 0.0 - 10.0 [facility] Comment on above: Performed By: #### 2 78747 #### [facility],[address] [place] [address] 37566 Morphology Crispin (Bld) [Interp] N/A Normal [facility] Comment on above: Performed By: #### 2 21942 #### [address] [address] Neutrophils (Bld) [#/Vol] 6.30 x10EE3/UL Normal 1.50 - 7.10 [facility] Comment on above: Performed By: #### 2 60216 #### [address] [address] Neutrophils/100 WBC (Bld) 64.3 % Normal 46.0 - 76. 0 [facility] Comment on above: Performed By: #### 2 21320 #### [address] [address] Platelet mean volume (Bld) [Entitic vol] 7.4 fL Normal 6.4 - 10.5 [facility] Comment on above: Result Comment: AUTO MATED DIFFERENTIAL Performed By: #### 2 04412 #### [address] [address] Platelets (Bld) [#/Vol] 254 x10EE3/UL Normal 150 - 450 [facility] Comment on above: Performed By: #### 2 18866 #### [address] [address] RBC (Bld) [#/Vol] 4.34 x 10EE6/UL Low 4.50 - 6.00 [facility] Comment on above: Performed By: #### 2 61020 #### [address] [address] WBC (Bld) [#/Vol] 9.8 x 10EE3/UL Normal 4.5 - 10.8 [facility] Comment on above: Performed By: #### 2 45843 #### [facility],[address] [place] [address] 72170 CULTURE URINEon 12-10-2019 CULTURE URINE CULTURE URINE _URINE CULTURE_ M I C R O B I O L O G Y R E P O R T FINAL Antimicrobial Susceptibility and Organism Identification Report Specimen Number : [id number] Requested : 12/09/19 Specimen Source : CLEAN CATCH URINE Collected : 12/09/19 23:45 Arredondo of Isolation : MEME HUANG Received : 12/09/19 23:45 Requesting Physician : FLORECITA ------ Patient/Specimen Tests and Comments Specimen Comments FINAL REPORT: NO GROWTH AT 48 HOURS ------ Tech : Source : CLEAN CATCH URINE ID # : [id number] FINAL Report Date : / / : Collected : 12/09/19 23:45 12/12/19.BKO. 12/11/19.BKO. 12/12/19.Delivered PLETE 12/12/19.BKO.to [facility] via fax Normal [facility] Comment on above: Performed By: #### 2 80719 #### [facility],[address] [place], [place] [id number] LITHIUMon 12-10-2019 [place] [Moles/Vol] 0.6 mmol/L Normal 0.6 - 1.2 [facility] Comment on above: Performed By: #### 2 53982 #### [facility],[address] [place] [address] 50735 RENAL FUNCTION PANEL WITH eG FRon 12-10-2019 Age - Reported 54 years Normal [facility] Comment on above: Performed By: #### 2 75235 #### [facility],[address] [place] [address] 60431 Albumin [Mass/Vol] 3.6 g/dL Normal 3.4 - 4.8 [facility] Comment on above: Performed By: #### 2 22572 #### [facility],[address] [place] [address] 53112 B/C RATIO 12 ratio Normal 0 - 30 [facility] Comment on above: Performed By: #### 2 50440 #### [facility],[address] [place] [address] 21379 Calcium [Mass/Vol] 9.4 mg/dL Normal 8.6 - 10.2 [facility] Comment on above: Performed By: #### 2 72634 #### [facility],[address] [place] [address] 13092 Chloride [Moles/Vol] 105 mmol/L Normal 98 - 107 [facility] Comment on above: Performed By: #### 2 97653 #### [facility],[address] [place] [address] 03644 CO2 [Moles/Vol] 24.4 mmol/L Normal 21.0 - 31.0 [facility] Comment on above: Performed By: #### 2 31757 #### [facility],[address] [place] [address] 47471 Creatinine [Mass/Vol] 1.9 mg/dL High 0.7 - 1.3 [facility] Comment on above: Performed By: #### 2 36974 #### [facility],[address] [place] [address] 82707 GFR/1.73 sq M predicted among non-blacks MDRD (S/P/Bld) [Vol rate/Area] 37 ML/MINUTE Low 60 - 999 [facility] Comment on above: Performed By: #### 2 13531 #### [facility],[address] [place] [address] 65680 GFR/1.73 sq M predicted among non-blacks MDRD (S/P/Bld) [Vol rate/Area] 45 ML/MINUTE Low 60 - 999 [facility] Comment on above: Result Comment: ACCO RDING TO THE NATIONAL KIDNEY DISEASE EDUCATION PROGRAM(NKDE), A NORMAL eGFR IS A VALUE GREATER THAN OR EQUAL TO 60 ML/MIN/1.73 SQ METERS. CHRONIC KIDNEY DISEASE: <60mL/MIN/1.73 SQ METERS KIDNEY FAILURE: <15mL/MIN/1.73 SQ METERS THIS TEST SHOULD ONLY BE USED FOR PATIENTS 18 YEARS OF AGE AND OLDER. Performed By: #### 2 39037 #### [facility],[address] [place] [address] 60533 Glucose [Mass/Vol] 106 mg/dL Normal 74 - 106 [facility] Comment on above: Performed By: #### 2 28240 #### [facility],[address] [place] [address] 82039 Phosphate [Mass/Vol] 5.0 mg/dL High 2.7 - 4.9 [facility] Comment on above: Performed By: #### 2 46885 #### [facility],[address] [place] [address] 96960 Potassium [Moles/Vol] 3.4 mmol/L Low 3.5 - 5.1 [facility] Comment on above: Performed By: #### 2 57129 #### [facility],[address] [place] [address] 58424 RENAL FUNCTION PANEL WITH eGFR Normal [facility] Comment on above: Result Comment: JESSICA L FUNCTION PANEL Performed By: #### 2 61076 #### [facility],[address] [place] [address] 14899 Sodium [Moles/Vol] 139 mmol/L Normal 136 - 145 [facility] Comment on above: Performed By: #### 2 48981 #### [facility],[address] [place] [address] 91632 Urea nitrogen [Mass/Vol] 23 mg/dL High 6 - 20 [facility] Comment on above: Performed By: #### 2 37537 #### [facility],[address] [place] [address] 85317 URINALYSISon 12-10-2019 Bilirubin [Mass/Vol] Negative Normal NORMAL: NEGATIVE [facility] Comment on above: Performed By: #### 2 60519 #### [facility],[address] [place] [address] 67516 Blood Negative Normal NORMAL: NEGATIVE [facility] Comment on above: Performed By: #### 2 65970 #### [facility],[address] [place] [address] 14361 Clarity (U) clear Normal NORMAL: CLEAR [facility] Comment on above: Performed By: #### 2 61017 #### [facility],[address] [place] [address] 79652 Color (U) p.yel Normal NORMAL: YELLOW [facility] Comment on above: Performed By: #### 2 49341 #### [facility],[address] [place] [address] 79675 Glucose [Mass/Vol] NORM Normal NORMAL: NORMAL [facility] Comment on above: Performed By: #### 2 24689 #### [facility],[address] [place] [address] 25123 Ketone Negative Normal NORMAL: NEGATIVE [facility] Comment on above: Performed By: #### 2 72729 #### [facility],[address] [place] [address] Microscopic NOT INDICATED Normal [facility] Comment on above: Performed By: #### 2 04747 #### [facility],[address] [place] [address] 91371 Nitrite Ql (U) Negative Normal NORMAL: NEGATIVE [facility] Comment on above: Performed By: #### 2 21795 #### [facility],[address] [place] [address] 86222 pH (Bld) 6 Normal NORMAL: 5.0-8.0 [facility] Comment on above: Performed By: #### 2 40250 #### [facility],[address] [place] [address] 22683 Protein (U) [Mass/Vol] Negative Normal JENN L: NEGATIVE [facility] Comment on above: Performed By: #### 2 30867 #### [facility],[address] [place] [address] 57124 Sp [place] 1.015 Normal NORMAL: 1.010-1.030 [facility] Comment on above: Performed By: #### 2 22864 #### [facility],[address] [place] [address] 15726 Specimen type Nom (Spec) Clean catch Normal [facility] Comment on above: Performed By: #### 2 89958 #### [facility],[address] [place] [address] 78766 Urobilinog NORM Normal NORMAL: NORMAL [facility] Comment on above: Performed By: #### 2 67896 #### [facility],[address] [place] [address] 08943 WBC (Bld) [#/Vol] Negative Normal NORMAL: NEGATIVE [facility] Comment on above: Performed By: #### 2 82386 #### [facility],[address] [place] [address] 20134 URINE CREATININE AND PROTEIN RATIOon 12-10-2019 CREATININE UR 97.1 mg/dl Normal [facility] Comment on above: Performed By: #### 2 82090 #### [facility],[address] [place] [address] 44569 PC RATIO 0.07 mg/dL Normal 0.00 - 10.00 [facility] Comment on above: Performed By: #### 2 34231 #### [facility],[address] [place] [address] 86255 Protein (U) [Mass/Vol] 7.00 mg/dL Normal 0.00 - 10.00 [facility] Comment on above: Performed By: #### 2 31248 #### [facility],[address] [place] [address] 23121 BMP with eGFRon 11-05-2019 Age - Reported 54 years Normal [facility] Comment on above: Performed By: #### 2 94002 #### [facility],[address] [place] [address] 52602 Anion gap [Moles/Vol] 12 mmol/L Normal 10 - 20 [facility] Comment on above: Performed By: #### 2 02914 #### [facility],[address] [place] [address] 52601 Chloride [Moles/Vol] 105 mmol/L Normal 98 - 107 [facility] Comment on above: Performed By: #### 2 91243 #### [facility],[address] [place] [address] 47424 CO2 [Moles/Vol] 26.8 mmol/L Normal 21.0 - 31.0 [facility] Comment on above: Performed By: #### 2 69721 #### [facility],[address] [place] [address] 86642 GFR/1.73 sq M predicted among non-blacks MDRD (S/P/Bld) [Vol rate/Area] 38 ML/MINUTE Low 60 - 999 [facility] Comment on above: Result Comment: ACCO RDING TO THE NATIONAL KIDNEY DISEASE EDUCATION PROGRAM(NKDE), A NORMAL eGFR IS A VALUE GREATER THAN OR EQUAL TO 60 ML/MIN/1.73 SQ METERS. CHRONIC KIDNEY DISEASE: <60mL/MIN/1.73 SQ METERS KIDNEY FAILURE: <15mL/MIN/1.73 SQ METERS THIS TEST SHOULD ONLY BE USED FOR PATIENTS 18 YEARS OF AGE AND OLDER. Performed By: #### 2 67953 #### [facility],[address] [place] [address] 72882 GFR/1.73 sq M predicted among non-blacks MDRD (S/P/Bld) [Vol rate/Area] 31 ML/MINUTE Low 60 - 999 [facility] Comment on above: Performed By: #### 2 58751 #### [facility],[address] [place] [address] 70597 GFR/1.73 sq M predicted among non-blacks MDRD (S/P/Bld) [Vol rate/Area] Normal [facility] Comment on above: Result Comment: BASI C METABOLIC PANEL Performed By: #### 2 63012 #### [facility],[address] [place], [place] [address] Potassium [Moles/Vol] 3.4 mmol/L Low 3.5 - 5.1 [facility] Comment on above: Performed By: #### 2 29893 #### [facility],[address] [place] [address] Sodium [Moles/Vol] 140 mmol/L Normal 136 - 145 [facility] Comment on above: Performed By: #### 2 31390 #### [facility] [facility],[address] [place], [place] [id number] CBC + DIFFon 11-05-2019 Basophils (Bld) [#/Vol] 0.10 x10EE3/UL Normal 0.00 - 0 .10 [facility] Comment on above: Performed By: #### 2 09079 #### [facility],[address] [place] [address] 14665 Basophils/100 WBC (Bld) 0.9 % Normal 0.0 - 2.0 [facility] Comment on above: Performed By: #### 2 92479 #### [facility],[address] [place] [address] CBC + DIFF Normal [facility] Comment on above: Result Comment: CBC- COMPLETE BLOOD COUNT Performed By: #### 2 32318 #### [facility],[address] [place] [address] 66093 Eosinophils (Bld) [#/Vol] 0.40 x10EE3/UL Normal 0.00 - 0.50 [facility] Comment on above: Performed By: #### 2 68584 #### [facility],[address] [place] [address] 83712 Eosinophils/100 WBC (Bld) 3.9 % Normal 0.0 - 7.0 [facility] Comment on above: Performed By: #### 2 93625 #### [facility],[address] [place], [place] [id number] Erythrocyte distribution width (RBC) [Ratio] 12.4 % Normal 12.0 - 15.6 [facility] Comment on above: Performed By: #### 2 71394 #### [facility],[address] [place] [address] 82789 Hematocrit (Bld) [Volume fraction] 39.9 % Low 40.0 - 52.0 [facility] Comment on above: Performed By: #### 2 05101 #### [facility],[address] [place] [address] 32433 Hemoglobin (Bld) [Mass/Vol] 13.3 g/dL Normal 13.0 - 17.5 [facility] Comment on above: Performed By: #### 2 37154 #### [facility],[address] [place] [address] 86097 Lymphocytes (Bld) [#/Vol] 1.90 x10EE3/UL Normal 0.80 - 2.80 [facility] Comment on above: Performed By: #### 2 88653 #### [facility],[address] [place] [address] 47785 Lymphocytes/100 WBC (Bld) 20.3 % Normal 20.0 - 45. 0 [facility] Comment on above: Performed By: #### 2 64496 #### [facility],[address] [place] [address] 78367 MANUAL DIFF N/A Normal [facility] Comment on above: Performed By: #### 2 15802 #### [facility],[address] [place] [address] 02454 MCH (RBC) [Entitic mass] 30 pg Normal 27 - 33 [facility] Comment on above: Performed By: #### 2 62651 #### [facility],[address] [place] [address] 72961 MCHC (RBC) [Mass/Vol] 33 X10 3 Normal 32 - 36 [facility] Comment on above: Performed By: #### 2 48106 #### [facility],[address] [place] [address] 41121 MCV (RBC) [Entitic vol] 91 fL Normal 81 - 98 [facility] Comment on above: Performed By: #### 2 65592 #### [facility],[address] [place] [address] 62279 Monocytes (Bld) [#/Vol] 1.00 x10EE3/UL Normal 0.20 - 1 .00 [facility] Comment on above: Performed By: #### 2 91168 #### [facility],[address] [place] [address] 71594 MONOS % 10.5 % High 0.0 - 10.0 [facility] Comment on above: Performed By: #### 2 27187 #### [facility],[address] [place] [address] 59270 Morphology Crispin (Bld) [Interp] N/A Normal [facility] Comment on above: Performed By: #### 2 09176 #### [facility],[address] [place] [address] 26648 Neutrophils (Bld) [#/Vol] 6.10 x10EE3/UL Normal 1.50 - 7.10 [facility] Comment on above: Performed By: #### 2 09336 #### [facility],[address] [place] [address] 36852 Neutrophils/100 WBC (Bld) 64.4 % Normal 46.0 - 76. 0 [facility] Comment on above: Performed By: #### 2 84446 #### [facility],[address] [place] [address] 92115 Platelet mean volume (Bld) [Entitic vol] 7.4 fL Normal 6.4 - 10.5 [facility] Comment on above: Result Comment: AUTO MATED DIFFERENTIAL Performed By: #### 2 94761 #### [facility],[address] [place] [address] 64326 Platelets (Bld) [#/Vol] 260 x10EE3/UL Normal 150 - 450 [facility] Comment on above: Performed By: #### 2 00197 #### [facility],[address] [place], [place] [id number] RBC (Bld) [#/Vol] 4.38 x 10EE6/UL Low 4.50 - 6.00 [facility] Comment on above: Performed By: #### 2 25137 #### [facility],[address] [place] [address] 36966 WBC (Bld) [#/Vol] 9.4 x 10EE3/UL Normal 4.5 - 10.8 [facility] Comment on above: Performed By: #### 2 98824 #### [facility],[address] [place], [place] [id number] LITHIUMon 11-05-2019 [place] [Moles/Vol] 0.5 mmol/L Low 0.6 - 1.2 [facility] Comment on above: Performed By: #### 2 10879 #### [facility],[address] [place], [place] [phone] RENAL FUNCTION PANELon 11-05 Albumin [Mass/Vol] 3.5 g/dL Normal 3.4 - 4.8 [facility] Comment on above: Performed By: #### 2 28196 #### [facility],[address] [place], [place] [id number] B/C RATIO 9 ratio Normal 0 - 30 [facility] Comment on above: Performed By: #### 2 87235 #### [facility],[address] [place] [address] 32287 Calcium [Mass/Vol] 9.4 mg/dL Normal 8.6 - 10.2 [facility] Comment on above: Performed By: #### 2 23986 #### [facility],[address] [place], [place] [address] Creatinine [Mass/Vol] 2.2 mg/dL High 0.7 - 1.3 [facility] Comment on above: Performed By: #### 2 69616 #### [facility],[address] [place] [address] Glucose [Mass/Vol] 105 mg/dL Normal 74 - 106 [facility] Comment on above: Performed By: #### 2 02914 #### [facility],[address] [place] [address] Phosphate [Mass/Vol] 4.3 mg/dL Normal 2.7 - 4.9 [facility] Comment on above: Performed By: #### 2 03916 #### [facility],[address] [place] [address] RENAL FUNCTION PANEL Normal [facility] Comment on above: Result Comment: JESSICA L FUNCTION PANEL Performed By: #### 2 34444 #### [facility],[address] [place] [address] Urea nitrogen [Mass/Vol] 20 mg/dL Normal 6 - 20 [facility] Comment on above: Performed By: #### 2 73359 #### [facility],[address] [place] [address] URINALYSISon 11-05-2019 Bilirubin [Mass/Vol] Negative Normal NORMAL: NEGATIVE [facility] Comment on above: Performed By: #### 2 57199 #### [facility],[address] [place] [address] Blood Negative Normal NORMAL: NEGATIVE [facility] Comment on above: Performed By: #### 2 24445 #### [facility],[address] [place] [address] Clarity (U) clear Normal NORMAL: CLEAR [facility] Comment on above: Performed By: #### 2 01072 #### [facility],[address] [place] [address] Color (U) p.yel Normal NORMAL: YELLOW [facility] Comment on above: Performed By: #### 2 49525 #### [facility],[address] [place] [address] 80738 Glucose [Mass/Vol] NORM Normal NORMAL: NORMAL [facility] Comment on above: Performed By: #### 2 35316 #### [facility],[address] [place], [place] [id number] Ketone Negative Normal NORMAL: NEGATIVE [facility] Comment on above: Performed By: #### 2 65821 #### [facility],[address] [place] [address] Microscopic NOT INDICATED Normal [facility] Comment on above: Performed By: #### 2 34675 #### [facility],[address] [place], [place] [id number] Nitrite Ql (U) Negative Normal NORMAL: NEGATIVE [facility] Comment on above: Performed By: #### 2 33017 #### [facility],[address] [place], [place] [address] pH (Bld) 6.5 Normal NORMAL: 5.0-8.0 [facility] Comment on above: Performed By: #### 2 32152 #### [facility],[address] [place], [place] [phone] Protein (U) [Mass/Vol] Negative Normal JENN L: NEGATIVE [facility] Comment on above: Performed By: #### 2 49859 #### [facility],[address] [place], [place] [id number] Sp [place] 1.010 Normal NORMAL: 1.010-1.030 [facility] Comment on above: Performed By: #### 2 86407 #### [facility],[address] [place], [place] [id number] Specimen type Nom (Spec) UNSPECIFIED Normal [facility] Comment on above: Performed By: #### 2 56759 #### [facility],[address] [place] [address] Urobilinog NORM Normal NORMAL: NORMAL [facility] Comment on above: Performed By: #### 2 46356 #### [facility],[address] [place], [place] [id number] WBC (Bld) [#/Vol] Negative Normal NORMAL: NEGATIVE [facility] Comment on above: Performed By: #### 2 41174 #### [facility],[address] [place] [address] URINE CREATININE AND PROTEIN RATIOon 11-05-2019 CREATININE UR 72.6 mg/dl Normal [facility] Comment on above: Performed By: #### 2 55071 #### [facility],[address] [place] [address] PC RATIO 0.07 mg/dL Normal 0.00 - 10.00 [facility] Comment on above: Performed By: #### 2 39241 #### [facility],[address] [place], [place] [address] Protein (U) [Mass/Vol] mg/dL Normal 0.00 - 10.00 [facility] Comment on above: Performed By: #### 2 60028 #### [facility],[address] [place] [address] BMP with eGFRon 10-08-2019 Age - Reported 54 years Normal [facility] Comment on above: Performed By: #### 2 18644 #### [facility],[address] [place] [address] 86151 Anion gap [Moles/Vol] 12 mmol/L Normal 10 - 20 [facility] Comment on above: Performed By: #### 2 91329 #### [facility],[address] [place] [address] 91155 Calcium [Mass/Vol] 9.2 mg/dL Normal 8.6 - 10.2 [facility] Comment on above: Performed By: #### 2 42888 #### [facility],[address] [place] [address] 27556 Chloride [Moles/Vol] 107 mmol/L Normal 98 - 107 [facility] Comment on above: Performed By: #### 2 53545 #### [facility],[address] [place] [address] 61751 CO2 [Moles/Vol] 26.7 mmol/L Normal 21.0 - 31.0 [facility] Comment on above: Performed By: #### 2 99347 #### [facility],[address] [place] [address] 10275 Creatinine [Mass/Vol] 2.1 mg/dL High 0.7 - 1.3 [facility] Comment on above: Performed By: #### 2 67525 #### [facility],[address] [place] [address] 55887 GFR/1.73 sq M predicted among non-blacks MDRD (S/P/Bld) [Vol rate/Area] Normal [facility] Comment on above: Result Comment: BASI C METABOLIC PANEL Performed By: #### 2 97426 #### [facility],[address] [place] [address] 81491 GFR/1.73 sq M predicted among non-blacks MDRD (S/P/Bld) [Vol rate/Area] 40 ML/MINUTE Low 60 - 999 [facility] Comment on above: Result Comment: ACCO RDING TO THE NATIONAL KIDNEY DISEASE EDUCATION PROGRAM(NKDE), A NORMAL eGFR IS A VALUE GREATER THAN OR EQUAL TO 60 ML/MIN/1.73 SQ METERS. CHRONIC KIDNEY DISEASE: <60mL/MIN/1.73 SQ METERS KIDNEY FAILURE: <15mL/MIN/1.73 SQ METERS THIS TEST SHOULD ONLY BE USED FOR PATIENTS 18 YEARS OF AGE AND OLDER. Performed By: #### 2 20875 #### [facility],[address] [place] [address] 40963 GFR/1.73 sq M predicted among non-blacks MDRD (S/P/Bld) [Vol rate/Area] 33 ML/MINUTE Low 60 - 999 [facility] Comment on above: Performed By: #### 2 11092 #### [facility],[address] [place] [address] 32887 Glucose [Mass/Vol] 106 mg/dL Normal 74 - 106 [facility] Comment on above: Performed By: #### 2 73526 #### [facility],[address] [place] [address] 96089 Potassium [Moles/Vol] 3.6 mmol/L Normal 3.5 - 5.1 [facility] Comment on above: Performed By: #### 2 06645 #### [facility],[address] [place] [address] 85105 Sodium [Moles/Vol] 142 mmol/L Normal 136 - 145 [facility] Comment on above: Performed By: #### 2 55291 #### [place] [address] Urea nitrogen [Mass/Vol] 22 mg/dL High 6 - 20 [facility] Comment on above: Performed By: #### 2 76945 #### [facility],[address] [place] [address] 37882 CBC + DIFFon 10-08-2019 Basophils (Bld) [#/Vol] 0.10 x10EE3/UL Normal 0.00 - 0 .10 [facility] Comment on above: Performed By: #### 2 57461 #### [facility],[address] [place] [address] 97551 Basophils/100 WBC (Bld) 0.7 % Normal 0.0 - 2.0 [facility] Comment on above: Performed By: #### 2 05175 #### [address] [address] CBC + DIFF Normal [facility] Comment on above: Result Comment: CBC- COMPLETE BLOOD COUNT Performed By: #### 2 13775 #### [facility] [place] [address] 42581 Eosinophils (Bld) [#/Vol] 0.50 x10EE3/UL Normal 0.00 - 0.50 [facility] Comment on above: Performed By: #### 2 58675 #### [facility],[address] [place], [place] [address] Eosinophils/100 WBC (Bld) 5.1 % Normal 0.0 - 7.0 [facility] Comment on above: Performed By: #### 2 73267 #### [facility],[address] [place] [address] Erythrocyte distribution width (RBC) [Ratio] 12.8 % Normal 12.0 - 15.6 [facility] Comment on above: Performed By: #### 2 95210 #### [facility],[address] [place] [address] Hematocrit (Bld) [Volume fraction] 37.6 % Low 40.0 - 52.0 [facility] Comment on above: Performed By: #### 2 93003 #### [facility],[address] [place] [address] 39913 Hemoglobin (Bld) [Mass/Vol] 12.5 g/dL Low 13.0 - 17.5 [facility] Comment on above: Performed By: #### 2 82670 #### [facility],[address] [place] [address] 29735 Lymphocytes (Bld) [#/Vol] 1.90 x10EE3/UL Normal 0.80 - 2.80 [facility] Comment on above: Performed By: #### 2 59632 #### [address] [address] Lymphocytes/100 WBC (Bld) 18.6 % Low 20.0 - 45. 0 [facility] Comment on above: Performed By: #### 2 58610 #### [facility],[address] [place], [place] [address] MANUAL DIFF N/A Normal [facility] Comment on above: Performed By: #### 2 80047 #### [facility],[address] [place], [place] [address] MCH (RBC) [Entitic mass] 31 pg Normal 27 - 33 [facility] Comment on above: Performed By: #### 2 70826 #### [facility],[address] [place] [address] MCHC (RBC) [Mass/Vol] 33 X10 3 Normal 32 - 36 [facility] Comment on above: Performed By: #### 2 76404 #### [facility],[address] [place], [place] [address] MCV (RBC) [Entitic vol] 93 fL Normal 81 - 98 [facility] Comment on above: Performed By: #### 2 48925 #### [facility],[address] [place], [place] [address] Monocytes (Bld) [#/Vol] 1.00 x10EE3/UL Normal 0.20 - 1 .00 [facility] Comment on above: Performed By: #### 2 64331 #### [facility],[address] [place] [address] 90649 MONOS % 9.4 % Normal 0.0 - 10.0 [facility] Comment on above: Performed By: #### 2 61381 #### [facility],[address] [place] [address] 88243 Morphology Cris[place] (Bld) [Interp] N/A Normal [facility] Comment on above: Performed By: #### 2 74091 #### [facility],[address] [place], [place] [address] Neutrophils (Bld) [#/Vol] 6.90 x10EE3/UL Normal 1.50 - 7.10 [facility] Comment on above: Performed By: #### 2 88236 #### [address] [address] Neutrophils/100 WBC (Bld) 66.2 % Normal 46.0 - 76. 0 [facility] Comment on above: Performed By: #### 2 33103 #### [facility],[address] [place] [address] Platelet mean volume (Bld) [Entitic vol] 7.7 fL Normal 6.4 - 10.5 [facility] Comment on above: Result Comment: AUTO MATED DIFFERENTIAL Performed By: #### 2 50266 #### [address] [address] Platelets (Bld) [#/Vol] 250 x10EE3/UL Normal 150 - 450 [facility] Comment on above: Performed By: #### 2 65351 #### [address] [address] RBC (Bld) [#/Vol] 4.07 x 10EE6/UL Low 4.50 - 6.00 [facility] Comment on above: Performed By: #### 2 25079 #### [address] [address] WBC (Bld) [#/Vol] 10.4 x 10EE3/UL Normal 4.5 - 10.8 [facility] Comment on above: Performed By: #### 2 89255 #### [address] [address] CULTURE URINEon 10-08-2019 CULTURE URINE CULTURE URINE _URINE CULTURE_ M I C R O B I O L O G Y R E P O R T FINAL Antimicrobial Susceptibility and Organism Identification Report Specimen Number : [id number] Requested : 10/08/19 Specimen Source : URINE Collected : 10/08/19 08:30 [place] of [place]olation : MEME HUANG Received : 10/08/19 08:30 Requesting Physician : FLORECITA ------ Patient/Specimen Tests and Comments Specimen Comments FINAL REPORT: NO GROWTH AT 48 HOURS ------ Tech : Source : URINE ID # : [id number] FINAL Report Date : / / : Collected : 10/08/19 08:30 10/10/19.1115.BKO. 10/09/19.1011.BKO. 10/10/19.1115.BKO.[employer] PAIGE [facility] Comment on above: Performed By: #### 2 18828 #### [facility],[address] [place] [address] 41913 HEPATIC FUNCTION PANELon ALK PHOS 52 U/L Normal 38 - 126 [facility] Comment on above: Performed By: #### 2 57222 #### [facility],[address] [place] [address] 54432 ALT/SGPT 15 U/L Normal 10 - 40 [facility] Comment on above: Performed By: #### 2 61873 #### [facility],[address] [place] [address] 67912 AST/SGOT 9 U/L Low 13 - 39 [facility] Comment on above: Performed By: #### 2 86888 #### [facility],[address] [place] [address] 52406 Bilirubin [Mass/Vol] 0.3 mg/dL Normal 0.0 - 1.5 [facility] Comment on above: Performed By: #### 2 26531 #### [facility],[address] [place] [address] 32577 Bilirubin.direct [Mass/Vol] 0.1 mg/dL Normal 0.0 - 0.1 [facility] Comment on above: Performed By: #### 2 60377 #### [facility],[address] [place] [address] 34396 HEPATIC FUNCTION PANEL Normal [facility] Comment on above: Result Comment: HEPA TIC FUNCTION PROFILE Performed By: #### 2 84692 #### [facility],[address] [place] [address] 46311 Protein [Mass/Vol] 5.5 g/dL Low 6.4 - 8.3 [facility] Comment on above: Performed By: #### 2 65371 #### [facility],[address] [place] [address] 35041 LITHIUMon 10-08-2019 [place] [Moles/Vol] 0.6 mmol/L Normal 0.6 - 1.2 [facility] Comment on above: Performed By: #### 2 47914 #### [facility],[address] [place] [address] 51164 RENAL FUNCTION PANELon 10-08 Albumin [Mass/Vol] 3.5 g/dL Normal 3.4 - 4.8 [facility] Comment on above: Performed By: #### 2 53964 #### [facility],[address] [place] [address] 58476 B/C RATIO 10 ratio Normal 0 - 30 [facility] Comment on above: Performed By: #### 2 36478 #### [facility],[address] [place] [address] 97811 Calcium [Mass/Vol] 9.2 mg/dL Normal 8.6 - 10.2 [facility] Comment on above: Performed By: #### 2 59905 #### [facility],[address] [place] [address] 77154 Chloride [Moles/Vol] 107 mmol/L Normal 98 - 107 [facility] Comment on above: Performed By: #### 2 67822 #### [facility],[address] [place] [address] 38344 CO2 [Moles/Vol] 26.7 mmol/L Normal 21.0 - 31.0 [facility] Comment on above: Performed By: #### 2 49443 #### [facility],[address] [place] [address] 44197 Creatinine [Mass/Vol] 2.1 mg/dL High 0.7 - 1.3 [facility] Comment on above: Performed By: #### 2 99511 #### [facility],[address] [place] [address] 71414 Glucose [Mass/Vol] 106 mg/dL Normal 74 - 106 [facility] Comment on above: Performed By: #### 2 91412 #### [facility],[address] [place] [address] 86451 Phosphate [Mass/Vol] 4.7 mg/dL Normal 2.7 - 4.9 [facility] Comment on above: Performed By: #### 2 14813 #### [facility],[address] [place] [address] 42345 Potassium [Moles/Vol] 3.6 mmol/L Normal 3.5 - 5.1 [facility] Comment on above: Performed By: #### 2 23953 #### [facility],[address] [place] [address] 07065 RENAL FUNCTION PANEL Normal [facility] Comment on above: Result Comment: JESSICA L FUNCTION PANEL Performed By: #### 2 82059 #### [facility],[address] [place] [address] 29009 Sodium [Moles/Vol] 142 mmol/L Normal 136 - 145 [facility] Comment on above: Performed By: #### 2 53414 #### [facility],[address] [place] [address] 74865 Urea nitrogen [Mass/Vol] 22 mg/dL High 6 - 20 [facility] Comment on above: Performed By: #### 2 86995 #### [facility],[address] [place] [address] 12491 URINALYSISon 10-08-2019 Bilirubin [Mass/Vol] Negative Normal NORMAL: NEGATIVE [facility] Comment on above: Performed By: #### 2 83699 #### [facility],[address] [place] [address] 02451 Blood Negative Normal NORMAL: NEGATIVE [facility] Comment on above: Performed By: #### 2 43862 #### [facility],[address] [place] [address] 52816 Clarity (U) clear Normal NORMAL: CLEAR [facility] Comment on above: Performed By: #### 2 17105 #### [facility],[address] [place], [place] [id number] Color (U) p.yel Normal NORMAL: YELLOW [facility] Comment on above: Performed By: #### 2 83421 #### [facility],[address] [place] [address] 39816 Glucose [Mass/Vol] NORM Normal NORMAL: NORMAL [facility] Comment on above: Performed By: #### 2 06007 #### [facility],[address] [place], [place] [id number] Ketone Negative Normal NORMAL: NEGATIVE [facility] Comment on above: Performed By: #### 2 45619 #### [facility],[address] [place] [address] Microscopic NOT INDICATED Normal [facility] Comment on above: Performed By: #### 2 24410 #### [facility],[address] [place], [place] [phone] Nitrite Ql (U) Negative Normal NORMAL: NEGATIVE [facility] Comment on above: Performed By: #### 2 62158 #### [facility],[address] [place], [place] [id number] pH (Bld) 6 Normal NORMAL: 5.0-8.0 [facility] Comment on above: Performed By: #### 2 69346 #### [facility],[address] [place], [place] [phone] Protein (U) [Mass/Vol] Negative Normal JENN L: NEGATIVE [facility] Comment on above: Performed By: #### 2 32702 #### [facility],[address] [place] [address] 92192 Sp [place] 1.015 Normal NORMAL: 1.010-1.030 [facility] Comment on above: Performed By: #### 2 34245 #### [facility],[address] [place], [place] [id number] Specimen type Nom (Spec) Clean catch Normal [facility] Comment on above: Performed By: #### 2 88582 #### [facility],[address] [place] [address] Urobilinog NORM Normal NORMAL: NORMAL [facility] Comment on above: Performed By: #### 2 12629 #### [facility],[address] [place] [address] WBC (Bld) [#/Vol] Negative Normal NORMAL: NEGATIVE [facility] Comment on above: Performed By: #### 2 01513 #### [facility],[address] [place] [address] CBC + DIFFon 09-10-2019 Basophils (Bld) [#/Vol] 0.10 x10EE3/UL Normal 0.00 - 0 .10 [facility] Comment on above: Performed By: #### 2 20688 #### [facility],[address] [place], [place] [address] Basophils/100 WBC (Bld) 1.0 % Normal 0.0 - 2.0 [facility] Comment on above: Performed By: #### 2 55450 #### [facility],[address] [place] [address] CBC + DIFF Normal [facility] Comment on above: Result Comment: CBC- COMPLETE BLOOD COUNT Performed By: #### 2 93687 #### [facility],[address] [place] [address] Eosinophils (Bld) [#/Vol] 0.50 x10EE3/UL Normal 0.00 - 0.50 [facility] Comment on above: Performed By: #### 2 35854 #### [facility],[address] [place], [place] [address] Eosinophils/100 WBC (Bld) 6.3 % Normal 0.0 - 7.0 [facility] Comment on above: Performed By: #### 2 43142 #### [facility],[address] [place], [place] [address] Erythrocyte distribution width (RBC) [Ratio] 13.3 % Normal 12.0 - 15.6 [facility] Comment on above: Performed By: #### 2 59743 #### [facility],[address] [place] [address] 46815 Hematocrit (Bld) [Volume fraction] 36.9 % Low 40.0 - 52.0 [facility] Comment on above: Performed By: #### 2 03949 #### [facility],[address] [place] [address] 17505 Hemoglobin (Bld) [Mass/Vol] 12.5 g/dL Low 13.0 - 17.5 [facility] Comment on above: Performed By: #### 2 75879 #### [facility],[address] [place] [address] 35717 Lymphocytes (Bld) [#/Vol] 2.20 x10EE3/UL Normal 0.80 - 2.80 [facility] Comment on above: Performed By: #### 2 67200 #### [facility],[address] [place] [address] 86590 Lymphocytes/100 WBC (Bld) 25.0 % Normal 20.0 - 45. 0 [facility] Comment on above: Performed By: #### 2 72442 #### [facility],[address] [place] [address] 90140 MANUAL DIFF N/A Normal [facility] Comment on above: Performed By: #### 2 03008 #### [facility],[address] [place] [address] 09570 MCH (RBC) [Entitic mass] 31 pg Normal 27 - 33 [facility] Comment on above: Performed By: #### 2 16608 #### [facility],[address] [place] [address] 86546 MCHC (RBC) [Mass/Vol] 34 X10 3 Normal 32 - 36 [facility] Comment on above: Performed By: #### 2 15537 #### [facility],[address] [place] [address] 10894 MCV (RBC) [Entitic vol] 93 fL Normal 81 - 98 [facility] Comment on above: Performed By: #### 2 90783 #### [facility],[address] [place] [address] 22182 Monocytes (Bld) [#/Vol] 0.90 x10EE3/UL Normal 0.20 - 1 .00 [facility] Comment on above: Performed By: #### 2 15328 #### [address] [address] MONOS % 10.6 % High 0.0 - 10.0 [facility] Comment on above: Performed By: #### 2 76484 #### [address] [address] Morphology [place] (Bld) [Interp] N/A Normal [facility] Comment on above: Performed By: #### 2 74832 #### [address] [address] Neutrophils (Bld) [#/Vol] 5.00 x10EE3/UL Normal 1.50 - 7.10 [facility] Comment on above: Performed By: #### 2 02724 #### [address] [address] Neutrophils/100 WBC (Bld) 57.1 % Normal 46.0 - 76. 0 [facility] Comment on above: Performed By: #### 2 34000 #### [address] [address] Platelet mean volume (Bld) [Entitic vol] 7.6 fL Normal 6.4 - 10.5 [facility] Comment on above: Result Comment: AUTO MATED DIFFERENTIAL Performed By: #### 2 99403 #### [address],[place] [address] Platelets (Bld) [#/Vol] 236 x10EE3/UL Normal 150 - 450 [facility] Comment on above: Performed By: #### 2 35862 #### [facility],[address] [place] [address] 40848 RBC (Bld) [#/Vol] 3.99 x 10EE6/UL Low 4.50 - 6.00 [facility] Comment on above: Performed By: #### 2 22321 #### [facility],[address] [place] [address] 73135 WBC (Bld) [#/Vol] 8.7 x 10EE3/UL Normal 4.5 - 10.8 [facility] Comment on above: Performed By: #### 2 67911 #### [facility],[address] [place], [place] [id number] CULTURE URINEon 09-10-2019 CULTURE URINE CULTURE URINE _URINE CULTURE_ M I C R O B I O L O G Y R E P O R T FINAL Antimicrobial Susceptibility and Organism Identification Report Specimen Number : [id number] Requested : 09/10/19 Specimen Source : CLEAN CATCH URINE Collected : 09/10/19 04:30 [place]ondo of Isolation : MEME HUANG Received : 09/10/19 04:30 Requesting Physician : FLORECITA ------ Patient/Specimen Tests and Comments Specimen Comments FINAL REPORT: NO GROWTH AT 48 HOURS ------ Tech : Source : CLEAN CATCH URINE ID # : [id number] FINAL Report Date : / / : Collected : 09/10/19 04:30 09/12/19.1053.BKO. 09/11/19.0717.JLN. 09/12/19.1053.BKO.[employer] PLETE 09/12/19105.BKO.to [facility] via fax Normal [facility] Comment on above: Performed By: #### 2 41229 #### [facility],[address] [place], [place] [id number] LITHIUMon 09-10-2019 [place] [Moles/Vol] 0.6 mmol/L Normal 0.6 - 1.2 [facility] Comment on above: Performed By: #### 2 11784 #### [facility],[address] [place] [address] 88736 RENAL FUNCTION PANEL WITH eG FRon 10-28-2019 Age - Reported 54 years Normal [facility] Comment on above: Performed By: #### 2 97492 #### [facility],[address] [place] [address] 25430 Albumin [Mass/Vol] 3.4 g/dL Normal 3.4 - 4.8 [facility] Comment on above: Performed By: #### 2 20723 #### [facility],[address] [place] [address] 40716 B/C RATIO 11 ratio Normal 0 - 30 [facility] Comment on above: Performed By: #### 2 86900 #### [facility],[address] [place] [address] 99423 Calcium [Mass/Vol] 9.2 mg/dL Normal 8.6 - 10.2 [facility] Comment on above: Performed By: #### 2 22208 #### [facility],[address] [place] [address] 45886 Chloride [Moles/Vol] 107 mmol/L Normal 98 - 107 [facility] Comment on above: Performed By: #### 2 31313 #### [facility],[address] [place] [address] 36900 CO2 [Moles/Vol] 25.3 mmol/L Normal 21.0 - 31.0 [facility] Comment on above: Performed By: #### 2 81004 #### [facility],[address] [place] [address] 88095 Creatinine [Mass/Vol] 2.2 mg/dL High 0.7 - 1.3 [facility] Comment on above: Performed By: #### 2 37877 #### [facility],[address] [place] [address] 29092 GFR/1.73 sq M predicted among non-blacks MDRD (S/P/Bld) [Vol rate/Area] 31 ML/MINUTE Low 60 - 999 [facility] Comment on above: Performed By: #### 2 65063 #### [facility],[address] [place] [address] 25257 GFR/1.73 sq M predicted among non-blacks MDRD (S/P/Bld) [Vol rate/Area] 38 ML/MINUTE Low 60 - 999 [facility] Comment on above: Result Comment: ACCO RDING TO THE NATIONAL KIDNEY DISEASE EDUCATION PROGRAM(NKDE), A NORMAL eGFR IS A VALUE GREATER THAN OR EQUAL TO 60 ML/MIN/1.73 SQ METERS. CHRONIC KIDNEY DISEASE: <60mL/MIN/1.73 SQ METERS KIDNEY FAILURE: <15mL/MIN/1.73 SQ METERS THIS TEST SHOULD ONLY BE USED FOR PATIENTS 18 YEARS OF AGE AND OLDER. Performed By: #### 2 10557 #### [facility],[address] [place] [address] 85490 Glucose [Mass/Vol] 96 mg/dL Normal 74 - 106 [facility] Comment on above: Performed By: #### 2 05886 #### [facility],[address] [place] [address] 70936 Phosphate [Mass/Vol] 4.5 mg/dL Normal 2.7 - 4.9 [facility] Comment on above: Performed By: #### 2 31121 #### [facility],[address] [place] [address] 13925 Potassium [Moles/Vol] 3.5 mmol/L Normal 3.5 - 5.1 [facility] Comment on above: Performed By: #### 2 20563 #### [facility],[address] [place] [address] 16497 RENAL FUNCTION PANEL WITH eGFR Normal [facility] Comment on above: Result Comment: JESSICA L FUNCTION PANEL Performed By: #### 2 33571 #### [facility],[address] [place] [address] 02078 Sodium [Moles/Vol] 141 mmol/L Normal 136 - 145 [facility] Comment on above: Performed By: #### 2 98373 #### [facility],[address] [place] [address] Urea nitrogen [Mass/Vol] 24 mg/dL High 6 - 20 [facility] Comment on above: Performed By: #### 2 45566 #### [facility],[address] [place] [address] URINALYSISon 09-10-2019 Bilirubin [Mass/Vol] Negative Normal NORMAL: NEGATIVE [facility] Comment on above: Performed By: #### 2 80760 #### [facility],[address] [place] [address] Blood Negative Normal NORMAL: NEGATIVE [facility] Comment on above: Performed By: #### 2 53297 #### [facility],[address] [place] [address] Clarity (U) clear Normal NORMAL: CLEAR [facility] Comment on above: Performed By: #### 2 45875 #### [facility],[address] [place] [address] Color (U) p.yel Normal NORMAL: YELLOW [facility] Comment on above: Performed By: #### 2 03712 #### [facility],[address] [place], [place] [phone] Glucose [Mass/Vol] NORM Normal NORMAL: NORMAL [facility] Comment on above: Performed By: #### 2 66650 #### [facility],[address] [place], [place] [address] Ketone Negative Normal NORMAL: NEGATIVE [facility] Comment on above: Performed By: #### 2 79624 #### [facility],[address] [place] [address] Microscopic NOT INDICATED Normal [facility] Comment on above: Performed By: #### 2 31114 #### [facility],[address] [place] [address] 65931 Nitrite Ql (U) Negative Normal NORMAL: NEGATIVE [facility] Comment on above: Performed By: #### 2 16698 #### [facility],[address] [place] [address] pH (Bld) 6.5 Normal NORMAL: 5.0-8.0 [facility] Comment on above: Performed By: #### 2 48604 #### [facility],[address] [place], [place] [address] Protein (U) [Mass/Vol] Negative Normal JENN L: NEGATIVE [facility] Comment on above: Performed By: #### 2 73062 #### [facility],[address] [place] [address] Sp [place] 1.010 Normal NORMAL: 1.010-1.030 [facility] Comment on above: Performed By: #### 2 42756 #### [facility],[address] [place] [address] Specimen type Nom (Spec) Clean catch Normal [facility] Comment on above: Performed By: #### 2 42449 #### [facility],[address] [place] [address] Urobilinog NORM Normal NORMAL: NORMAL [facility] Comment on above: Performed By: #### 2 95140 #### [facility],[address] [place], [place] [address] WBC (Bld) [#/Vol] Negative Normal NORMAL: NEGATIVE [facility] Comment on above: Performed By: #### 2 06609 #### [facility],[address] [place], [place] [address] URINE CREATININE AND PROTEIN RATIOon 09-10-2019 CREATININE UR 58.3 mg/dl Normal [facility] Comment on above: Performed By: #### 2 56689 #### [facility],[address] [place], [place] [address] PC RATIO 0.09 mg/dL Normal 0.00 - 10.00 [facility] Comment on above: Performed By: #### 2 93753 #### [facility],[address] [place] [address] 21217 Protein (U) [Mass/Vol] mg/dL Normal 0.00 - 10.00 [facility] Comment on above: Performed By: #### 2 30339 #### [facility],[address] [place] [address] 35135 BMP with eGFRon 08-31-2019 Age - Reported 54 years Normal [facility] Comment on above: Performed By: #### 2 42965 #### [facility],[address] [place] [address] 54084 Anion gap [Moles/Vol] 12 mmol/L Normal 10 - 20 [facility] Comment on above: Performed By: #### 2 18344 #### [facility],[address] [place] [address] 84757 Calcium [Mass/Vol] 9.4 mg/dL Normal 8.6 - 10.2 [facility] Comment on above: Performed By: #### 2 37113 #### [facility],[address] [place] [address] 81831 Chloride [Moles/Vol] 104 mmol/L Normal 98 - 107 [facility] Comment on above: Performed By: #### 2 03141 #### [facility],[address] [place] [address] 48894 CO2 [Moles/Vol] 26.9 mmol/L Normal 21.0 - 31.0 [facility] Comment on above: Performed By: #### 2 00855 #### [facility],[address] [place] [address] 47267 Creatinine [Mass/Vol] 2.4 mg/dL High 0.7 - 1.3 [facility] Comment on above: Performed By: #### 2 78304 #### [facility],[address] [place] [address] 42787 GFR/1.73 sq M predicted among non-blacks MDRD (S/P/Bld) [Vol rate/Area] Normal [facility] Comment on above: Result Comment: BASI C METABOLIC PANEL Performed By: #### 2 71070 #### [facility],[address] [place] [address] 25620 GFR/1.73 sq M predicted among non-blacks MDRD (S/P/Bld) [Vol rate/Area] 28 ML/MINUTE Low 60 - 999 [facility] Comment on above: Performed By: #### 2 43328 #### [facility],[address] [place] [address] 93594 GFR/1.73 sq M predicted among non-blacks MDRD (S/P/Bld) [Vol rate/Area] 34 ML/MINUTE Low 60 - 999 [facility] Comment on above: Result Comment: ACCO RDING TO THE NATIONAL KIDNEY DISEASE EDUCATION PROGRAM(NKDE), A NORMAL eGFR IS A VALUE GREATER THAN OR EQUAL TO 60 ML/MIN/1.73 SQ METERS. CHRONIC KIDNEY DISEASE: <60mL/MIN/1.73 SQ METERS KIDNEY FAILURE: <15mL/MIN/1.73 SQ METERS THIS TEST SHOULD ONLY BE USED FOR PATIENTS 18 YEARS OF AGE AND OLDER. Performed By: #### 2 27948 #### [address] [address] Glucose [Mass/Vol] 106 mg/dL Normal 74 - 106 [facility] Comment on above: Performed By: #### 2 21932 #### [address] [address] Potassium [Moles/Vol] 3.5 mmol/L Normal 3.5 - 5.1 [facility] Comment on above: Performed By: #### 2 26438 #### [address] [address] Sodium [Moles/Vol] 139 mmol/L Normal 136 - 145 [facility] Comment on above: Performed By: #### 2 79635 #### [address] [address] Urea nitrogen [Mass/Vol] 25 mg/dL High 6 - 20 [facility] Comment on above: Performed By: #### 2 62280 #### [facility],[address] [place], [place] [address] HGB A1C [CCL]on 08-26-2019 HbA1c (Bld) [Mass fraction] 117 mg/dL Normal [facility] Comment on above: Result Comment: eAG: (Estimated average glucose) is a calculated value from HgbA1c and is hardware supplies sales representative of the average blood glucose level in the last 2-3 month period. [facility] [address] [place] [address] Peyton Lang M.D. [id number] Performed By: #### 2 92533 #### [place] [id number] HbA1c (Bld) [Mass fraction] 5.7 % High 4.3-5.6 [facility] Comment on above: Result Comment: Amer [place] Diabetes Association guidelines indicate that patients with HgbA1c in the range 5.7-6.4% are at increased risk for development of diabetes, and intervention by lifestyle modification may be beneficial. HgbA1c greater or equal to 6.5% is considered diagnostic of diabetes. Performed By: #### 2 64581 #### [facility],[address] [place] [address] 22227 Hemoglobin A1con 08-26-2019 HbA1c (Bld) [Mass fraction] 5.7 % High 4.3-5.6 [facility] Comment on above: Performed By: #### H BA1C #### [facility] Routine Lab [address] [place], [place] [address] HbA1c (Bld) [Mass fraction] 117 mg/dL Normal [facility] Comment on above: Performed By: #### H BA1C #### [facility] [address] [place] [id number] RENAL FUNCTION PANELon 08-14 Albumin [Mass/Vol] 3.2 g/dL Low 3.4 - 4.8 [facility] Comment on above: Performed By: #### 2 42609 #### [facility],[address] [place] [address] 81906 B/C RATIO 13 ratio Normal 0 - 30 [facility] Comment on above: Performed By: #### 2 69936 #### [facility],[address] [place] [address] 31846 Calcium [Mass/Vol] 8.8 mg/dL Normal 8.6 - 10.2 [facility] Comment on above: Performed By: #### 2 96310 #### [facility],[address] [place] [address] 93029 Chloride [Moles/Vol] 105 mmol/L Normal 98 - 107 [facility] Comment on above: Performed By: #### 2 27475 #### [facility],[address] [place] [address] 29037 CO2 [Moles/Vol] 29.8 mmol/L Normal 21.0 - 31.0 [facility] Comment on above: Performed By: #### 2 13561 #### [facility],[address] [place] [address] 66188 Creatinine [Mass/Vol] 2.0 mg/dL High 0.7 - 1.3 [facility] Comment on above: Performed By: #### 2 79232 #### [facility],[address] [place] [address] 42662 Glucose [Mass/Vol] 78 mg/dL Normal 74 - 106 [facility] Comment on above: Performed By: #### 2 17754 #### [facility],[address] [place] [address] 75279 Phosphate [Mass/Vol] 4.8 mg/dL Normal 2.7 - 4.9 [facility] Comment on above: Performed By: #### 2 01731 #### [facility],[address] [place] [address] 68668 Potassium [Moles/Vol] 3.9 mmol/L Normal 3.5 - 5.1 [facility] Comment on above: Performed By: #### 2 83934 #### [facility],[address] [place] [address] 21789 RENAL FUNCTION PANEL Normal [facility] Comment on above: Result Comment: JESSICA L FUNCTION PANEL Performed By: #### 2 91802 #### [facility],[address] [place] [address] 38685 Sodium [Moles/Vol] 141 mmol/L Normal 136 - 145 [facility] Comment on above: Performed By: #### 2 25544 #### [facility],[address] [place] [address] 52000 Urea nitrogen [Mass/Vol] 25 mg/dL High 6 - 20 [facility] Comment on above: Performed By: #### 2 52442 #### [facility],[address] [place] [address] 81517 CBC (NO DIFF)on 08-06-2019 CBC (NO DIFF) Normal [facility] Comment on above: Result Comment: CBC( WITHOUT DIFFERENTIAL) Performed By: #### 2 74079 #### [facility],[address] [place] [address] 03115 Erythrocyte distribution width (RBC) [Ratio] 13.2 % Normal 12.0 - 15.6 [facility] Comment on above: Performed By: #### 2 64092 #### [facility],[address] [place] [address] 49009 Hematocrit (Bld) [Volume fraction] 37.7 % Low 40.0 - 52.0 [facility] Comment on above: Performed By: #### 2 33768 #### [facility],[address] [place] [address] 04443 Hemoglobin (Bld) [Mass/Vol] 12.9 g/dL Low 13.0 - 17.5 [facility] Comment on above: Performed By: #### 2 84734 #### [facility],[address] [place] [address] 41990 MCH (RBC) [Entitic mass] 32 pg Normal 27 - 33 [facility] Comment on above: Performed By: #### 2 09072 #### [facility],[address] [place] [address] 55922 MCHC (RBC) [Mass/Vol] 34 X10 3 Normal 32 - 36 [facility] Comment on above: Performed By: #### 2 24828 #### [facility],[address] [place] [address] 19460 MCV (RBC) [Entitic vol] 94 fL Normal 81 - 98 [facility] Comment on above: Performed By: #### 2 13457 #### [facility],[address] [place] [address] 50653 Platelet mean volume (Bld) [Entitic vol] 7.3 fL Normal 6.4 - 10.5 [facility] Comment on above: Performed By: #### 2 63820 #### [facility],[address] [place] [address] 47289 Platelets (Bld) [#/Vol] 166 x10EE3/UL Normal 150 - 450 [facility] Comment on above: Performed By: #### 2 22458 #### [facility],[address] [place] [address] 47531 RBC (Bld) [#/Vol] 4.00 x 10EE6/UL Low 4.50 - 6.00 [facility] Comment on above: Performed By: #### 2 95855 #### [facility],[address] [place] [address] 71046 WBC (Bld) [#/Vol] 8.7 x 10EE3/UL Normal 4.5 - 10.8 [facility] Comment on above: Performed By: #### 2 03748 #### [facility],[address] [place] [address] 81433 CULTURE URINEon 08-06-2019 CULTURE URINE CULTURE URINE _URINE CULTURE_ M I C R O B I O L O G Y R E P O R T FINAL Antimicrobial Susceptibility and Organism Identification Report Specimen Number : [id number] Requested : 08/06/19 Specimen Source : CLEAN CATCH URINE Collected : 08/06/19 03:10 [place] of [place]olation : MEME HUANG Received : 08/06/19 03:10 Requesting Physician : FLORECITA ------ Patient/Specimen Tests and Comments Specimen Comments FINAL REPORT: NO GROWTH AT 48 HOURS ------ Tech : Source : CLEAN CATCH URINE ID # : [id number] FINAL Report Date : / / : Collected : 08/06/19 03:10 08/08/19.1104.BKO. 08/07/19.0711.JLN. 08/08/19.1105.[employer] PLETE Normal [facility] Comment on above: Performed By: #### 2 28506 #### [facility],[address] [place] [address] LITHIUMon 08-06-2019 [place] [Moles/Vol] 0.6 mmol/L Normal 0.6 - 1.2 [facility] Comment on above: Performed By: #### 2 13159 #### [facility],[address] [place] [address] MR MRI BRAIN W/O CONTRASTon 08-06-2019 MR MRI BRAIN W/O CONTRAST [facility] [place] [address] Patient: REGGIE LEÓN Phone#: : 1965 Age: 54 Gender: M Pt. Type: Out Account: [id number] Location: Ordering: HODA BERNABE Exam Date: 08/06/2019/8:56 Family Phys: Charge Code: [id number] Physician: Major Order #: [id number] DLP Dose#: PROCEDURE: MRI BRAIN WITHOUT CONTRAST [...] Momin MD on 08/06/2019 at 9:51 Normal [facility] RENAL FUNCTION PANELon 08-06 Albumin [Mass/Vol] 3.3 g/dL Low 3.4 - 4.8 [facility] Comment on above: Performed By: #### 2 75641 #### [place] [id number] B/C RATIO 11 ratio Normal 0 - 30 [facility] Comment on above: Performed By: #### 2 07184 #### [address] [address] Calcium [Mass/Vol] 8.9 mg/dL Normal 8.6 - 10.2 [facility] Comment on above: Performed By: #### 2 10155 #### [facility],[address] [place] [address] 22172 Chloride [Moles/Vol] 107 mmol/L Normal 98 - 107 [facility] Comment on above: Performed By: #### 2 40729 #### [facility],[address] [place] [address] 25276 CO2 [Moles/Vol] 26.8 mmol/L Normal 21.0 - 31.0 [facility] Comment on above: Performed By: #### 2 48288 #### [facility],[address] [place] [address] 33457 Creatinine [Mass/Vol] 2.2 mg/dL High 0.7 - 1.3 [facility] Comment on above: Performed By: #### 2 87378 #### [facility],[address] [place] [address] 26134 Glucose [Mass/Vol] 84 mg/dL Normal 74 - 106 [facility] Comment on above: Performed By: #### 2 38787 #### [facility],[address] [place] [address] 67321 Phosphate [Mass/Vol] 3.9 mg/dL Normal 2.7 - 4.9 [facility] Comment on above: Performed By: #### 2 18078 #### [facility],[address] [place] [address] 32287 Potassium [Moles/Vol] 4.1 mmol/L Normal 3.5 - 5.1 [facility] Comment on above: Performed By: #### 2 15063 #### [facility],[address] [place] [address] 72552 RENAL FUNCTION PANEL Normal [facility] Comment on above: Result Comment: JESSICA L FUNCTION PANEL Performed By: #### 2 25213 #### [facility],[address] [place] [address] 62916 Sodium [Moles/Vol] 141 mmol/L Normal 136 - 145 [facility] Comment on above: Performed By: #### 2 00563 #### [facility],[address] [place] [address] 83165 Urea nitrogen [Mass/Vol] 25 mg/dL High 6 - 20 [facility] Comment on above: Performed By: #### 2 23030 #### [facility],[address] [place] [address] 05430 URINALYSISon 08-06-2019 Bilirubin [Mass/Vol] Negative Normal NORMAL: NEGATIVE [facility] Comment on above: Performed By: #### 2 02137 #### [facility],[address] [place], [place] [phone] Blood Negative Normal NORMAL: NEGATIVE [facility] Comment on above: Performed By: #### 2 54200 #### [facility],[address] [place] [address] 66009 Clarity (U) clear Normal NORMAL: CLEAR [facility] Comment on above: Performed By: #### 2 97292 #### [facility],[address] [place] [address] Color (U) p.yel Normal NORMAL: YELLOW [facility] Comment on above: Performed By: #### 2 59233 #### [facility],[address] [place] [address] Glucose [Mass/Vol] NORM Normal NORMAL: NORMAL [facility] Comment on above: Performed By: #### 2 89003 #### [facility],[address] [place], [place] [id number] Ketone Negative Normal NORMAL: NEGATIVE [facility] Comment on above: Performed By: #### 2 18117 #### [facility],[address] [place], [place] [phone] Microscopic NOT Normal [facility] Comment on above: Performed By: #### 2 08893 #### [facility],[address] [place] [address] 25263 Nitrite Ql (U) Negative Normal NORMAL: NEGATIVE [facility] Comment on above: Performed By: #### 2 55490 #### [facility],[address] [place], [place] [phone] pH (Bld) 8 Normal NORMAL: 5.0-8.0 [facility] Comment on above: Performed By: #### 2 09372 #### [facility],[address] [place] [address] 33107 Protein (U) [Mass/Vol] Negative Normal JENN L: NEGATIVE [facility] Comment on above: Performed By: #### 2 47051 #### [place] [address] [place] 1.010 Normal NORMAL: 1.010-1.030 [facility] Comment on above: Performed By: #### 2 68908 #### [facility],[address] [place] [address] Specimen type Nom (Spec) Clean catch Normal [facility] Comment on above: Performed By: #### 2 52814 #### [place] [address] Urobilinog NORM Normal NORMAL: NORMAL [facility] Comment on above: Performed By: #### 2 79804 #### [place] [address] WBC (Bld) [#/Vol] Negative Normal NORMAL: NEGATIVE [facility] Comment on above: Performed By: #### 2 26443 #### [place] [address] URINE CREATININE AND PROTEIN RATIOon 08-06-2019 CREATININE UR 35.5 mg/dl Normal [facility] Comment on above: Performed By: #### 2 89398 #### [place] [address] PC RATIO 0.11 mg/dL Normal 0.00 - 10.00 [facility] Comment on above: Performed By: #### 2 90473 #### [place] [address] Protein (U) [Mass/Vol] mg/dL Normal 0.00 - 10.00 [facility] Comment on above: Performed By: #### 2 51692 #### [place] [id number] Ammoniaon 03-19-2019 Ammonia mass conc (P) 34 umol/L Normal 16-60 [facility] [place] Comment on above: Performed By: #### L ITH #### [facility] [address] [place] [address] Basic Metabolic Panelon 05-0 Anion gap molar conc 13 mmol/L Normal 9-15 [facility] Comment on above: Result Comment: Effe ctive: 12/21/2018 New reference range for this analyte has been established. Performed By: #### L ITH #### [facility] [address] [place] [address] Calcium mass conc 8.8 mg/dL Normal 8.5-9.9 [facility] Comment on above: Result Comment: Effe ctive: 12/21/2018 New reference range for this analyte has been established. Performed By: #### L ITH #### [facility] [address] [place] [address] Chloride molar conc 106 mmol/L Normal 95-107 [facility] Comment on above: Result Comment: Effe ctive: 12/21/2018 New reference range for this analyte has been established. Performed By: #### L ITH #### [facility] [address] [place] [address] CO2 molar conc 22 mmol/L Normal 20-31 [facility] Comment on above: Result Comment: Effe ctive: 12/21/2018 New reference range for this analyte has been established. Performed By: #### L ITH #### [facility] [address] [place] [address] Creatinine mass conc 1.78 mg/dL Critically high 0.70-1.20 [facility] Comment on above: Performed By: #### L ITH #### [facility] [address] [place] [address] GFR/1.73 sq M predicted among blacks MDRD vol rate/area (S/P/Bld) 48.1 mL/min/{1.73_m2} Low >60 [facility] Comment on above: Result Comment: >60 mL/min/1.73m2 EGFR, calc. for ages 18 and older using the MDRD formula (not corrected for weight), is valid for stable renal function. Performed By: #### L ITH #### [facility] [address] [place] [address] GFR/1.73 sq M.predicted MDRD vol rate/area 39.8 mL/min/{1.73_m2} Low >60 [facility] Comment on above: Result Comment: >60 mL/min/1.73m2 EGFR, calc. for ages 18 and older using the MDRD formula (not corrected for weight), is valid for stable renal function. Performed By: #### L ITH #### [facility] [address] [place] [address] Glucose mass conc 84 mg/dL Normal 70-99 [facility] Comment on above: Result Comment: Effe ctive: 12/21/2018 New reference range for this analyte has been established. Performed By: #### L ITH #### [facility] [address] [place] [address] Potassium molar conc 4.4 mmol/L Normal 3.4-4.9 [facility] Comment on above: Result Comment: Effe ctive: 12/21/2018 New reference range for this analyte has been established. Performed By: #### L ITH #### [facility] [address] [place] [address] Sodium molar conc 141 mmol/L Normal 135-144 [facility] Comment on above: Result Comment: Effe ctive: 12/21/2018 New reference range for this analyte has been established. Performed By: #### L ITH #### [facility] [address] [place] [address] Urea nitrogen mass conc 25 mg/dL Critically high 6-20 [facility] Comment on above: Performed By: #### L ITH #### [facility] [address] [place] [address] Valproic Acid /Depakene Leve rahul 03-19-2019 Protein mass conc 62.5 ug/mL Normal 50.0-100.0 [facility] Comment on above: Performed By: #### L ITH #### [facility] [address] [place] [address] Basic Metabolic Panelon 05-0 Anion gap molar conc 14 mmol/L Normal 9-15 [facility] Comment on above: Result Comment: Effe ctive: 12/21/2018 New reference range for this analyte has been established. Performed By: #### L ITH #### [facility] [address] [place] [address] Calcium mass conc 9.1 mg/dL Normal 8.5-9.9 [facility] Comment on above: Result Comment: Effe ctive: 12/21/2018 New reference range for this analyte has been established. Performed By: #### L ITH #### [facility] [address] [place] [address] Chloride molar conc 107 mmol/L Normal 95-107 [facility] Comment on above: Result Comment: Effe ctive: 12/21/2018 New reference range for this analyte has been established. Performed By: #### L ITH #### [facility] [address] [place] [address] CO2 molar conc 22 mmol/L Normal 20-31 [facility] Comment on above: Result Comment: Effe ctive: 12/21/2018 New reference range for this analyte has been established. Performed By: #### L ITH #### [facility] [address] [place] [address] Creatinine mass conc 2.32 mg/dL Critically high 0.70-1.20 [facility] Comment on above: Performed By: #### L ITH #### [facility] [address] [place] [address] GFR/1.73 sq M predicted among blacks MDRD vol rate/area (S/P/Bld) 35.4 mL/min/{1.73_m2} Low >60 [facility] Comment on above: Result Comment: >60 mL/min/1.73m2 EGFR, calc. for ages 18 and older using the MDRD formula (not corrected for weight), is valid for stable renal function. Performed By: #### L ITH #### [facility] [address] [place] [address] GFR/1.73 sq M.predicted MDRD vol rate/area 29.3 mL/min/{1.73_m2} Low >60 [facility] Comment on above: Result Comment: >60 mL/min/1.73m2 EGFR, calc. for ages 18 and older using the MDRD formula (not corrected for weight), is valid for stable renal function. Performed By: #### L ITH #### [facility] [address] [place] [address] Glucose mass conc 97 mg/dL Normal 70-99 [facility] Comment on above: Result Comment: Effe ctive: 12/21/2018 New reference range for this analyte has been established. Performed By: #### L ITH #### [facility] [address] [place] [address] Potassium molar conc 4.5 mmol/L Normal 3.4-4.9 [facility] Comment on above: Result Comment: Effe ctive: 12/21/2018 New reference range for this analyte has been established. Performed By: #### L ITH #### [facility] [address] [place] [address] Sodium molar conc 143 mmol/L Normal 135-144 [facility] Comment on above: Result Comment: Effe ctive: 12/21/2018 New reference range for this analyte has been established. Performed By: #### L ITH #### [facility] [address] [place] [address] Urea nitrogen mass conc 29 mg/dL Critically high 6-20 [facility] Comment on above: Performed By: #### L ITH #### [facility] [address] [place] [address] Basic Metabolic Panelon 05-0 Anion gap molar conc 10 mmol/L Normal 9-15 [facility] Comment on above: Result Comment: Effe ctive: 12/21/2018 New reference range for this analyte has been established. Performed By: #### L ITH #### [facility] [address] [place] [address] Calcium mass conc 8.7 mg/dL Normal 8.5-9.9 [facility] Comment on above: Result Comment: Effe ctive: 12/21/2018 New reference range for this analyte has been established. Performed By: #### L ITH #### [facility] [address] [place] [address] Chloride molar conc 109 mmol/L Critically high 95-107 [facility] Comment on above: Result Comment: Effe ctive: 12/21/2018 New reference range for this analyte has been established. Performed By: #### L ITH #### [facility] [address] [place] [address] CO2 molar conc 24 mmol/L Normal 20-31 [facility] Comment on above: Result Comment: Effe ctive: 12/21/2018 New reference range for this analyte has been established. Performed By: #### L ITH #### [facility] [address] [place] [address] Creatinine mass conc 1.77 mg/dL Critically high 0.70-1.20 [facility] Comment on above: Performed By: #### L ITH #### [facility] [address] [place] [address] GFR/1.73 sq M predicted among blacks MDRD vol rate/area (S/P/Bld) 48.4 mL/min/{1.73_m2} Low >60 [facility] Comment on above: Result Comment: >60 mL/min/1.73m2 EGFR, calc. for ages 18 and older using the MDRD formula (not corrected for weight), is valid for stable renal function. Performed By: #### L ITH #### [facility] [address] [place] [address] GFR/1.73 sq M.predicted MDRD vol rate/area 40.0 mL/min/{1.73_m2} Low >60 [facility] Comment on above: Result Comment: >60 mL/min/1.73m2 EGFR, calc. for ages 18 and older using the MDRD formula (not corrected for weight), is valid for stable renal function. Performed By: #### L ITH #### [facility] [address] [place] [address] Glucose mass conc 95 mg/dL Normal 70-99 [facility] Comment on above: Result Comment: Effe ctive: 12/21/2018 New reference range for this analyte has been established. Performed By: #### L ITH #### [facility] [address] [place] [address] Potassium molar conc 4.8 mmol/L Normal 3.4-4.9 [facility] Comment on above: Result Comment: Effe ctive: 12/21/2018 New reference range for this analyte has been established. Performed By: #### L ITH #### [facility] [address] [place] [address] Sodium molar conc 143 mmol/L Normal 135-144 [facility] Comment on above: Result Comment: Effe ctive: 12/21/2018 New reference range for this analyte has been established. Performed By: #### L ITH #### [facility] [address] [place] [address] Urea nitrogen mass conc 25 mg/dL Critically high 6-20 [facility] Comment on above: Performed By: #### L ITH #### [facility] [address] [place] [address] Ammoniaon 03-12-2019 Ammonia mass conc (P) 20 umol/L Normal 16-60 [facility] [place] Comment on above: Performed By: #### N H3 #### [facility] [address] [place] [address] Basic Metabolic Panelon 04- Anion gap molar conc 14 mmol/L Normal 9-15 [facility] Comment on above: Result Comment: Effe ctive: 12/21/2018 New reference range for this analyte has been established. Performed By: #### L ITH #### [facility] [address] [place] [address] Calcium mass conc 9.1 mg/dL Normal 8.5-9.9 [facility] Comment on above: Result Comment: Effe ctive: 12/21/2018 New reference range for this analyte has been established. Performed By: #### L ITH #### [facility] [address] [place] [address] Chloride molar conc 109 mmol/L Critically high 95-107 [facility] Comment on above: Result Comment: Effe ctive: 12/21/2018 New reference range for this analyte has been established. Performed By: #### L ITH #### [facility] [address] [place] [address] CO2 molar conc 24 mmol/L Normal 20-31 [facility] Comment on above: Result Comment: Effe ctive: 12/21/2018 New reference range for this analyte has been established. Performed By: #### L ITH #### [facility] [address] [place] [address] Creatinine mass conc 1.94 mg/dL Critically high 0.70-1.20 [facility] Comment on above: Performed By: #### L ITH #### [facility] [address] [place] [address] GFR/1.73 sq M predicted among blacks MDRD vol rate/area (S/P/Bld) 43.6 mL/min/{1.73_m2} Low >60 [facility] Comment on above: Result Comment: >60 mL/min/1.73m2 EGFR, calc. for ages 18 and older using the MDRD formula (not corrected for weight), is valid for stable renal function. Performed By: #### L ITH #### [facility] [address] [place] [address] GFR/1.73 sq M.predicted MDRD vol rate/area 36.0 mL/min/{1.73_m2} Low >60 [facility] Comment on above: Result Comment: >60 mL/min/1.73m2 EGFR, calc. for ages 18 and older using the MDRD formula (not corrected for weight), is valid for stable renal function. Performed By: #### L ITH #### [facility] [address] [place] [address] Glucose mass conc 90 mg/dL Normal 70-99 [facility] Comment on above: Result Comment: Effe ctive: 12/21/2018 New reference range for this analyte has been established. Performed By: #### L ITH #### [facility] [address] [place] [address] Potassium molar conc 4.5 mmol/L Normal 3.4-4.9 [facility] Comment on above: Result Comment: Effe ctive: 12/21/2018 New reference range for this analyte has been established. Performed By: #### L ITH #### [facility] [address] [place] [address] Sodium molar conc 147 mmol/L Critically high 135-144 [facility] Comment on above: Result Comment: Effe ctive: 12/21/2018 New reference range for this analyte has been established. Performed By: #### L ITH #### [facility] [address] [place] [address] Urea nitrogen mass conc 27 mg/dL Critically high - [facility] Comment on above: Performed By: #### L ITH #### [facility] [address] [place] [address] [place] Levelon 03-12-2019 [place] molar conc 0.8 mmol/L Normal 0.6-1.2 [facility] Comment on above: Performed By: #### L ITH #### [facility] [address] [place] [address] Valproic Acid /Depakene Leve rahul 03-12-2019 Protein mass conc 70.6 ug/mL Normal 50.0-100.0 [facility] Comment on above: Performed By: #### L ITH #### [facility] [address] [place] [address] Basic Metabolic Panelon 02-13 Anion gap molar conc 13 mmol/L Normal 9-15 [facility] Comment on above: Result Comment: Effe ctive: 12/21/2018 New reference range for this analyte has been established. Performed By: #### B MP #### [facility] [address] [place] [address] Calcium mass conc 8.9 mg/dL Normal 8.5-9.9 [facility] Comment on above: Result Comment: Effe ctive: 12/21/2018 New reference range for this analyte has been established. Performed By: #### B MP #### [facility] [address] [place] [address] Chloride molar conc 108 mmol/L Critically high 95-107 [facility] Comment on above: Result Comment: Effe ctive: 12/21/2018 New reference range for this analyte has been established. Performed By: #### B MP #### [facility] [address] [place] [address] CO2 molar conc 23 mmol/L Normal 20-31 [facility] Comment on above: Result Comment: Effe ctive: 12/21/2018 New reference range for this analyte has been established. Performed By: #### B MP #### [facility] [address] [place] [address] Creatinine mass conc 1.82 mg/dL Critically high 0.70-1.20 [facility] Comment on above: Performed By: #### B MP #### [facility] [address] [place] [address] GFR/1.73 sq M predicted among blacks MDRD vol rate/area (S/P/Bld) 46.9 mL/min/{1.73_m2} Low >60 [facility] Comment on above: Result Comment: >60 mL/min/1.73m2 EGFR, calc. for ages 18 and older using the MDRD formula (not corrected for weight), is valid for stable renal function. Performed By: #### B MP #### [facility] [address] [place] [address] GFR/1.73 sq M.predicted MDRD vol rate/area 38.8 mL/min/{1.73_m2} Low >60 [facility] Comment on above: Result Comment: >60 mL/min/1.73m2 EGFR, calc. for ages 18 and older using the MDRD formula (not corrected for weight), is valid for stable renal function. Performed By: #### B MP #### [facility] [address] [place] [address] Glucose mass conc 82 mg/dL Normal 70-99 [facility] Comment on above: Result Comment: Effe ctive: 12/21/2018 New reference range for this analyte has been established. Performed By: #### B MP #### [facility] [address] [place] [address] Potassium molar conc 4.2 mmol/L Normal 3.4-4.9 [facility] Comment on above: Result Comment: Effe ctive: 12/21/2018 New reference range for this analyte has been established. Performed By: #### B MP #### [facility] [address] [place] [address] Sodium molar conc 144 mmol/L Normal 135-144 [facility] Comment on above: Result Comment: Effe ctive: 12/21/2018 New reference range for this analyte has been established. Performed By: #### B MP #### [facility] [address] [place] [address] Urea nitrogen mass conc 28 mg/dL Critically high 6-20 [facility] Comment on above: Performed By: #### B MP #### [facility] [address] [place] [address] Lipid Panelon 03-09-2019 Cholesterol in HDL mass conc 30 mg/dL Low 40-59 [facility] Comment on above: Result Comment: ATP III [...] CHD Performed By: #### L IPID #### [facility] [address] [place] [address] Cholesterol in LDL mass conc 83 mg/dL Normal 0-129 [facility] Comment on above: Result Comment: ATP III LDL Classification is Optimal. Performed By: #### L IPID #### [facility] [address] [place] [address] Cholesterol mass conc 160 mg/dL Normal 0-199 [facility] ([place], [place]) Comment on above: Result Comment: ATP III Cholesterol classification is Desirable. Performed By: #### L IPID #### [facility] [address] [place] [address] Triglyceride mass conc 234 mg/dL Critically high 0-150 [facility] Comment on above: Result Comment: ATP III Triglycerides Classification is High. Effective: 12/21/2018 New reference range for this analyte has been established. Performed By: #### L IPID #### [facility] [address] [place] [address] Ammoniaon 03-04-2019 Ammonia mass conc (P) 35 umol/L Normal 16-60 [facility] ([place], [place]) Comment on above: Performed By: #### N H3 #### [facility] [address] [place] [address] [place] Level[place] 03-04-2019 [place] molar conc 0.7 mmol/L Normal 0.6-1.2 [facility] Comment on above: Performed By: #### L ITH #### [facility] [address] [place] [address] TSH w/out Reflexon 201 9 Thyrotropin Qn 2.880 uIU/mL Normal 0.440-3.86 [facility] Comment on above: Result Comment: Effe ctive: 12/21/2018 New reference range for this analyte has been established. Performed By: #### T SH #### [facility] [address] [place] [address] VITAMIN Don 03-04-2019 VITAMIN D 33.1 ng/mL Normal 30.0-100.0 [facility] Comment on above: Result Comment: (30- 100 ng/mL) Optimum Level This assay accurately quantifies the sum of vitamin D3, 25-Hydroxy and vitamin D2, 25-Hyroxy. Performed By: #### V ITD #### [facility] [address] [place] [address] Valproic Acid /Depakene Leve rahul 03-04-2019 Protein mass conc 25.8 ug/mL Low 50.0-100.0 [facility] Comment on above: Performed By: #### V ALPR #### [facility] [address] [place] [address] Vitamin B12 and Folateon Cobalamin (Vitamin B12) mass conc 340 pg/mL Normal 232-1245 [facility] Comment on above: Performed By: #### B 12FO #### [facility] [address] [place] [address] Folate 10.2 ng/mL Normal 7.3-26.1 [facility] Comment on above: Result Comment: As o f 16, the methodology has changed. Results from this methodology should not be compared with results from previous methodology. Performed By: #### B 12FO #### [facility] [address] [place] [address] Creatinineon 06-06-2018 Creatinine 1.93 mg/dL High 0.58-0.96 [facility] Comment on above: Performed By: #### C RET1, TSH, LI ####[facility] [address] [place], [place] [phone] eGFR (non-black) 27 . Normal [facility] Comment on above: Performed By: #### C RET1, TSH, LI ####[facility] [address] [place], [place] [phone] eGFR- Amer. 33 Normal [facility] Comment on above: Performed By: #### C RET1, TSH, LI ####[facility] [address] [place], [place] [phone] Lithiumon 06-06-2018 [place] 0.8 mmol/L Normal 0.6-1.2 [facility] Comment on above: Performed By: #### C RET1, TSH, LI ####[facility] [address] [place], [place] [phone] TSHon 06-06-2018 Thyroid stimulating hormone (TSH) 2.350 uU/mL Normal 0.400-5.500 [facility] Comment on above: Performed By: #### C RET1, TSH, LI ####[facility] [address] [place], [place] [phone] Culture, urine Bacteria identified Cx Nom (U) Culture exhibits no growth. [facility] Work Phone: Bacteria identified Cx Nom (U) Positive [facility] Work Phone: Bacteria identified Cx Nom (U) Actinomyces turicensis [facility] Work Phone: Bacteria identified Cx Nom (U) Streptococcus mitis [facility] Work Phone: Vital Signs Date Time Vital Sign Value Performing Clinician Facility 02-26-2025 11:40-0400 Diastolic blood pressure 76 mm[Hg] [facility] Work Phone: [facility] 02-26-2025 11:40-0400 Heart rate 75 /min [facility] Work Phone: [facility] 02-26-2025 11:40-0400 Respiratory rate 18 /min [facility] Work Phone: [facility] 02-26-2025 11:40-0400 SaO2% (BldA) [Mass fraction] 96 % [facility] Work Phone: [facility] 02-26-2025 11:40-0400 Systolic blood pressure 122 mm[Hg] [facility] Work Phone: [facility] 02-26-2025 09:00-0400 Body temperature 98.6 [degF] [facility] Work Phone: [facility] 02-12-2025 14:04-0400 Diastolic blood pressure 55 mm[Hg] [facility] Work Phone: [facility] 02-12-2025 14:04-0400 Heart rate 78 /min [facility] Work Phone: [facility] 02-12-2025 14:04-0400 Respiratory rate 18 /min [facility] Work Phone: [facility] 02-12-2025 14:04-0400 SaO2% (BldA) [Mass fraction] 95 % [facility] Work Phone: [facility] 02-12-2025 14:04-0400 Systolic blood pressure 128 mm[Hg] [facility] Work Phone: [facility] 02-12-2025 09:00-0400 Body temperature 98.6 [degF] [facility] Work Phone: [facility] 09-14-2024 08:49-0400 Body height 176.3 cm Dorota Smith MD Work Phone: [facility] 09-14-2024 08:49-0400 Body mass index (BMI) [Ratio] 39.27 kg/m2 Dorota Smith MD Work Phone: [facility] 09-14-2024 08:49-0400 Body temperature 97.3 [degF] Dorota Smith MD Work Phone: [facility] 09-14-2024 08:49-0400 Body weight 122.05 kg Dorota Smith MD Work Phone: [facility] 09-14-2024 08:49-0400 Diastolic blood pressure 65 mm[Hg] Dorota Smith MD Work Phone: [facility] 09-14-2024 08:49-0400 Heart rate 106 /min Dorota Smith MD Work Phone: [facility] 09-14-2024 08:49-0400 Respiratory rate 14 /min Dorota Smith MD Work Phone: [facility] 09-14-2024 08:49-0400 Systolic blood pressure 104 mm[Hg] Dorota Smith MD Work Phone: [facility] 08-09-2024 10:45-0400 Diastolic blood pressure 68 mm[Hg] [facility] Work Phone: [facility] 08-09-2024 10:45-0400 Heart rate 82 /min [facility] Work Phone: [facility] 08-09-2024 10:45-0400 Respiratory rate 18 /min [facility] Work Phone: [facility] 08-09-2024 10:45-0400 SaO2% (BldA) [Mass fraction] 96 % [facility] Work Phone: [facility] 08-09-2024 10:45-0400 Systolic blood pressure 125 mm[Hg] [facility] Work Phone: [facility] 08-09-2024 07:00-0400 Body temperature 98.4 [degF] [facility] Work Phone: [facility] 07-17-2024 11:09-0400 Body height 182.9 cm Anthony Olivares MD Work Phone: [facility] 07-17-2024 11:09-0400 Body mass index (BMI) [Ratio] 36.48 kg/m2 Anthony Olivares MD Work Phone: [facility] 07-17-2024 11:09-0400 Body weight 122 kg Anthony Olivares MD Work Phone: [facility] 07-17-2024 11:09-0400 Diastolic blood pressure 73 mm[Hg] Anthony Olivares MD Work Phone: [facility] 07-17-2024 11:09-0400 Heart rate 90 /min Anthony Olivares MD Work Phone: [facility] 07-17-2024 11:09-0400 Systolic blood pressure 106 mm[Hg] Anthony Olivares MD Work Phone: [facility] 03-14-2024 12:00-0400 Diastolic blood pressure 62 mm[Hg] [facility] Work Phone: [facility] 01-26-2024 12:00-0400 Heart rate 97 /min [facility] Work Phone: [facility] 01-26-2024 12:00-0400 Respiratory rate 18 /min [facility] Work Phone: [facility] 01-26-2024 12:00-0400 SaO2% (BldA) [Mass fraction] 96 % [facility] Work Phone: [facility] 01-26-2024 12:00-0400 Systolic blood pressure 110 mm[Hg] [facility] Work Phone: [facility] 01-26-2024 07:05-0400 Body temperature 98.6 [degF] [facility] Work Phone: [facility] 12-20-2023 09:51-0500 Body height 177.8 cm Anthony Olivares MD Work Phone: [facility] 12-20-2023 09:51-0500 Body temperature 97.7 [degF] Anthony Olivares MD Work Phone: [facility] 12-20-2023 09:51-0500 Body weight 126.4 kg Anthony Olivares MD Work Phone: [facility] 12-20-2023 09:51-0500 Diastolic blood pressure 68 mm[Hg] Anthony Olivares MD Work Phone: [facility] 12-20-2023 09:51-0500 Heart rate 116 /min Anthony Olivares MD Work Phone: [facility] 12-20-2023 09:51-0500 Systolic blood pressure 97 mm[Hg] Anthony Olivares MD Work Phone: [facility] 02-25-2023 11:04-0400 Body height 171.5 cm Luz Daniel MD Work Phone: [facility] 02-25-2023 11:04-0400 Body temperature 97.9 [degF] Luz Daniel MD Work Phone: [facility] 02-25-2023 11:04-0400 Body weight 146.69 kg Luz Daniel MD Work Phone: [facility] 02-25-2023 11:04-0400 Diastolic blood pressure 86 mm[Hg] Luz Daniel MD Work Phone: [facility] 02-25-2023 11:04-0400 Heart rate 93 /min Luz Daniel MD Work Phone: [facility] 02-25-2023 11:04-0400 Systolic blood pressure 125 mm[Hg] Luz Daniel MD Work Phone: [facility] 11-03-2022 13:05-0500 Body temperature 97.2 [degF] Dougl[place]i 2 Work Phone: [facility] 11-03-2022 13:05-0500 Diastolic blood pressure 78 mm[Hg] Ashleigh 2 Work Phone: [facility] 11-03-2022 13:05-0500 Heart rate 89 /min Guki 2 Work Phone: [facility] 11-03-2022 13:05-0500 Respiratory rate 18 /min [place]i 2 Work Phone: [facility] 11-03-2022 13:05-0500 SaO2% (BldA) [Mass fraction] 95 % [place]i 2 Work Phone: [facility] 11-03-2022 13:05-0500 Systolic blood pressure 124 mm[Hg] [place]i 2 Work Phone: [facility] 11-03-2022 07:52-0500 Body weight 144.74 kg Ashleigh 2 Work Phone: [facility] 08-27-2022 10:46-0400 Body height 171.5 cm Luz Daniel MD Work Phone: [facility] 08-27-2022 10:46-0400 Body temperature 98.29 [degF] Luz Daniel MD Work Phone: [facility] 08-27-2022 10:46-0400 Body weight 146.06 kg Luz Daniel MD Work Phone: [facility] 08-27-2022 10:46-0400 Diastolic blood pressure 95 mm[Hg] Luz Daniel MD Work Phone: [facility] 08-27-2022 10:46-0400 Heart rate 109 /min Luz Daniel MD Work Phone: [facility] 08-27-2022 10:46-0400 Systolic blood pressure 132 mm[Hg] Luz Daniel MD Work Phone: [facility] 07-27-2022 15:53-0400 Body height 176.5 cm Anthony Olivares MD Work Phone: [facility] 07-27-2022 15:53-0400 Body weight 142.88 kg Anthony Olivares MD Work Phone: [facility] 07-27-2022 15:53-0400 Diastolic blood pressure 85 mm[Hg] Anthony Olivares MD Work Phone: [facility] 07-27-2022 15:53-0400 Heart rate 94 /min Anthony Olivares MD Work Phone: [facility] 07-27-2022 15:53-0400 Systolic blood pressure 128 mm[Hg] Anthony Olivares MD Work Phone: [facility] 05-05-2022 13:15-0400 Body temperature 97.2 [degF] Kidney 1 [facility] 05-05-2022 13:15-0400 Diastolic blood pressure 91 mm[Hg] Kidney 1 [facility] 05-05-2022 13:15-0400 Heart rate 116 /min Kidney 1 [facility] 05-05-2022 13:15-0400 Systolic blood pressure 157 mm[Hg] Kidney 1 [facility] 05-05-2022 07:40-0400 SaO2% (BldA) [Mass fraction] 95 % Kidney 1 [facility] 05-05-2022 07:36-0400 Body weight 140.57 kg Kidney 1 [facility] 11-04-2020 15:52-0500 Body Temperature 97.2 [degF] [facility] 11-04-2020 15:52-0500 BP Diastolic 74 mm[Hg] [facility] , [place] 11-04-2020 15:52-0500 BP Systolic 113 mm[Hg] [facility] [place] 11-04-2020 15:52-0500 Pulse (Heart Rate) 92 /min [facility], [place] 11-04-2020 15:52-0500 Pulse Oximetry 96 % [facility] , [place] 11-04-2020 15:52-0500 Respiratory Rate 17 /min [facility], [place] 11-04-2020 05:31-0500 Body weight 114.31 kg Otf [place], [place] Encounters Encounter Date Encounter Type Care Provider Facility Start: 08-28-2025 ambulatory ALFREDO PHIPPS Facility:[facility] Start: 08-27-2025 ambulatory Adam CHANDLER Fac ility:[facility] Start: 08-15-2025 End: 08-15-2025 ambulatory ANTHONY OLIVARES Facility:[facility] Start: 08-14-2025 ambulatory Alfredo CHANDLER Faci lity:[facility] Start: 08-14-2025 Registered Referred Alfredo Phipps - [place] [employer] Start: 08-09-2025 Registered Referred Alfredo hPipps - [place] [employer] Start: 08-09-2025 End: 08-09-2025 ambulatory Alfredo CHANDELR Facility:[facility] Start: 08-02-2025 Registered Referred Adam Ferraro -[place] [employer] Start: 08-02-2025 End: 08-02-2025 ambulatory Adam CHANDLER Facility:[facility] Start: 07-29-2025 Registered Referred Alfredo Phipps - [place] [employer] Start: 07-29-2025 End: 07-29-2025 ambulatory Alfredo CHANDLER Facility:[facility] Start: 07-02-2025 Registered Referred Lasha alicia MD -[place] [employer] Start: 07-02-2025 End: 07-02-2025 ambulatory Lasha CHANDLER Facility:[facility] Start: 07-01-2025 Registered Referred Adam Ferraro -[place] [employer] Start: 07-01-2025 End: 07-01-2025 ambulatory Adam CHANDLER Facility:[facility] Start: 06-27-2025 ambulatory Adam Jasmine RAMESH Fac ility:[facility] Start: 06-27-2025 Registered Referred Adam Ferraro -[place] [employer] Start: 06-20-2025 Registered Referred Alfredo Phipps - [place] [employer] Start: 06-20-2025 End: 06-20-2025 ambulatory Alfredo CHANDLER Facility:[facility] Start: 06-19-2025 Registered Referred Alfredo Desire - [place] [employer] Start: 06-19-2025 End: 06-19-2025 ambulatory Elgin Bal Facility:[facility] Start: 06-06-2025 End: 06-06-2025 ambulatory Julieta Luo RN [facility] Start: 06-05-2025 Registered Referred Adam Ferraro -[place] [employer] Start: 06-05-2025 End: 06-05-2025 ambulatory Adam CHANDLER Facility:[facility] Start: 05-28-2025 End: 05-28-[address] Elgin Bal MD Work Phone: -[place] [employer] Start: 05-28-2025 End: 05-28-2025 Departed Referred Adam Ferraro -[place] [employer] Start: 05-28-2025 Registered Referred Adam Ferraro -[place] [employer] Start: 05-28-2025 End: 05-28-2025 ambulatory Adam CHANDLER Facility:[facility] Start: 05-26-2025 Registered Referred Adam Ferraro -[place] [employer] Start: 05-26-2025 End: 05-26-2025 ambulatory Adam CHANDLER Facility:[facility] Start: 05-24-2025 ambulatory Adam CHANDLER Fac ility:[facility] Start: 05-24-2025 Registered Referred Adam Ferraro -[place] [employer] Start: 05-23-2025 End: 05-23-2025 Telemedicine consultation with patient Anthony Olivares MD Work Phone: [facility] [place] Start: 05-23-2025 End: 05-27-2025 ambulatory Anthony Olivares MD Work Phone: [facility] [place] Comment on above: 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 Elgin Bal MD Work Phone: -[place] [employer] Start: 04-26-2025 End: 04-26-2025 Departed Referred Alfredo Phipps -[place] [employer] Start: 04-26-2025 Registered Referred Alfredo Phipps - [place] [employer] Start: 04-26-2025 End: 04-26-2025 ambulatory Elgin Bal Facility:[facility] Start: 04-24-2025 ambulatory Adam CHANDLER Fac ility:[facility] Start: 04-24-2025 Registered Referred Adam Ferraro -[place] [employer] Start: 04-01-2025 End: 04-01-[address] Elgin Bal MD Work Phone: [facility] Start: 04-01-2025 End: 04-01-2025 Departed Referred Adam Ferraro -[place] [employer] Start: 04-01-2025 End: 04-01-2025 ambulatory Adam CHANDLER Facility:[facility] Start: 03-27-2025 ambulatory Alfredo CHANDLER Faci lity:[facility] Start: 03-27-2025 Registered Referred Alfredo Phipps - [place] [employer] Start: 03-04-2025 End: 03-04-[address] Elgin Bal MD Work Phone: [facility] Work Phone: Start: 03-04-2025 End: 03-04-2025 Departed Referred Adam Ferraro -[place] [employer] Start: 03-04-2025 Registered Referred Adam Ferraro -[place] [employer] Start: 03-04-2025 End: 03-04-2025 ambulatory Adam Wandamele RAMESH Facility:[facility] Start: 02-27-2025 End: 02-27-[address] Elgin Bal MD Work Phone: [facility] Work Phone: Start: 02-27-2025 End: 02-27-2025 Departed Referred Alfredo Phipps -[place] [employer] Start: 02-27-2025 Registered Referred Alfredo Phipps - [place] [employer] Start: 02-26-2025 End: 02-27-2025 ambulatory ALFREDO PHIPPS Facility:[facility] Start: 02-26-2025 End: 02-26-2025 Subsequent hospital visit by physician Chair [facility] Work Phone: [facility] Start: 02-25-2025 End: 02-25-[address] Elgin Bal MD Work Phone: [facility] Work Phone: Start: 02-25-2025 End: 02-25-2025 Departed Referred Adam Ferraro -[place] [employer] Start: 02-25-2025 Registered Referred Adam Ferraro -[place] [employer] Start: 02-25-2025 End: 02-25-2025 ambulatory Adam Wandamele RAMESH Facility:[facility] Start: 02-12-2025 ambulatory ANTHONY Rivera ELISE Facility: [facility] Start: 02-12-2025 End: 02-12-2025 Subsequent hospital visit by physician Chair [facility] Work Phone: [facility] Start: 02-11-2025 End: 02-11-[address] Eglin Bal MD Work Phone: [facility] Work Phone: Start: 02-11-2025 End: 02-11-2025 Departed Referred Alfredo Shultzsaros -[employer] Start: 02-11-2025 Registered Referred Alfredo Lexiisaros - [place] [employer] Start: 02-11-2025 End: 02-11-2025 ambulatory Alfredo Lexiiangi CHANDLER Facility:[facility] Start: 02-06-2025 End: 02-06-[address] Elgin Bal MD Work Phone: [facility] Work Phone: Start: 02-06-2025 End: 02-06-2025 Departed Referred Alfredo Shultzsaros -[employer] Start: 02-06-2025 Registered Referred Alfredo [employer] Start: 02-06-2025 End: 02-06-2025 ambulatory [facility] Facility:[facility] Start: 01-30-2025 End: 01-30-2025 Departed Referred Adam Ferraro [employer] Start: 01-30-2025 End: 01-30-2025 Orders Only Anthony Olivares MD Work Phone: [facility] Start: 01-30-2025 Registered Referred Adam Ferraro [employer] Start: 01-30-2025 End: 01-30-2025 ambulatory Adam HCANDLER Facility:[facility] Start: 01-25-2025 End: 01-25-[address] Elgin Bal MD Work Phone: [facility] Work Phone: Start: 01-25-2025 End: 01-25-2025 Departed Referred Adam Ferraro [employer] Start: 01-25-2025 End: 01-25-2025 ambulatory [facility] Facility:[facility] Start: 01-03-2025 End: 01-03-[address] Elgin Bal MD Work Phone: [facility] Work Phone: Start: 01-03-2025 End: 01-03-2025 Departed Referred Adam Ferraro [employer] Start: 01-03-2025 Registered Referred Adam Jasmine [employer] Start: 01-02-2025 End: 01-03-[address] Elgin Bal MD Work Phone: [facility] Work Phone: Start: 01-02-2025 End: 01-02-2025 Departed Referred Adam Ferraro [employer] Start: 01-02-2025 Registered Referred Adam Jasmine [employer] Start: 01-02-2025 End: 01-02-2025 ambulatory [facility] Facility:[facility] Start: 12-28-2024 End: 12-28-[address] Elgin Bal MD Work Phone: [facility] Work Phone: Start: 12-28-2024 End: 12-28-2024 Departed Referred Adam Ferraro [employer] Start: 12-28-2024 End: 12-28-2024 ambulatory [facility] Facility:[facility] Start: 11-27-2024 End: 11-27-2024 Departed Referred Adam Ferraro [employer] Start: 11-27-2024 End: 11-27-2024 ambulatory Adam CHANDLER Facility:[facility] Start: 11-20-2024 End: 11-23-2024 ambulatory Anthony Olivares MD Work Phone: [facility] Start: 11-15-2024 End: 11-15-2024 Departed Referred Adam Jasmine [employer] Start: 11-15-2024 End: 11-15-2024 ambulatory Adam CHANDLER Facility:[facility] Start: 09-27-2024 End: 09-27-2024 Departed Referred Adam Jasmine [employer] Start: 09-27-2024 End: 09-27-2024 ambulatory Adam Ferraro OLS Facility:[facility] Start: 09-14-2024 End: 09-14-2024 Patient encounter procedure Dorota Smith MD Work Phone: [facility] Comment on above: 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); Rash and nonspecific skin eruption; 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) Start: 09-14-2024 End: 09-14-2024 ambulatory ALFREDO PHIPPS Facility:[facility] Start: 08-09-2024 End: 08-09-2024 Subsequent hospital visit by physician Chair [facility] Work Phone: Infusion Center Comment on above: Rituximab Start: 07-17-2024 End: 07-20-2024 ambulatory Anthony Olivares MD Work Phone: [facility] [place] Start: 07-17-2024 End: 07-17-2024 Patient encounter procedure Anthony Olivares MD Work Phone: [facility] Comment on above: 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); Stage 3b chronic kidney disease (HCC); Benign hypertension with chronic kidney disease Start: 05-21-2024 Telephone encounter Dorota hameed MD Work Phone: [facility] Comment on above: [...] kidney disease Start: 02-03-2024 End: 02-03-2024 ambulatory [facility] Work Phone: Start: 02-03-2024 End: 02-03-2024 Departed Referred [facility] Start: 01-26-2024 End: 01-26-2024 Subsequent hospital visit by physician Chair [facility] Work Phone: Infusion Center Comment on above: Rituximab Start: 01-06-2024 End: 01-06-2024 ambulatory [facility] Work Phone: Start: 01-06-2024 End: 01-06-2024 [facility] Start: 12-29-2023 Orders Only Babak Drummond RN [facility] Start: 12-27-2023 Orders Only Anthony Olivares MD Work Phone: [facility] Start: 12-23-2023 Telephone encounter Nuria noyola RN [facility] Comment on above: Appointment Start: 12-20-2023 ambulatory Anthony Olivares MD Work Phone: [facility] Start: 12-20-2023 End: 12-20-2023 Patient encounter procedure Anthony Olivares MD Work Phone: [facility] Comment on above: 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); Stage 3b chronic kidney disease (HCC); Benign hypertension with chronic kidney disease Start: 12-09-2023 End: 12-09-2023 ambulatory [facility] Work Phone: Start: 12-09-2023 End: 12-09-2023 [facility] Start: 11-16-2023 End: 11-16-2023 [facility] Start: 11-16-2023 [facility] Start: 11-11-2023 End: 11-11-2023 ambulatory [facility] Work Phone: Start: 11-11-2023 End: 11-11-2023 [facility] Start: 11-11-2023 [facility]istered [facility] Start: 10-27-2023 End: 10-27-2023 ambulatory [facility] Work Phone: Start: 10-27-2023 End: 10-27-2023 Departed Referred [facility] [employer] Start: 10-14-2023 End: 10-14-2023 ambulatory [facility] Work Phone: Start: 10-14-2023 End: 10-14-2023 [facility] Start: 09-27-2023 End: 09-27-2023 ambulatory [facility] Work Phone: Start: 09-27-2023 End: 09-27-2023 [facility] Start: 09-27-2023 [facility] [employer] [facility] Start: 09-16-2023 End: 09-16-2023 ambulatory [facility] Work Phone: Start: 09-16-2023 End: 09-16-2023 [facility] Start: 08-29-2023 Telephone encounter Dorota hameed MD Work Phone: [facility] Comment on above: Patient Update Start: 08-26-2023 Telephone encounter Luz Daniel MD Work Phone: [facility] [place] Comment on above: NO SHOW Start: 08-19-2023 End: 08-19-2023 ambulatory [facility] Work Phone: Start: 08-19-2023 End: 08-19-2023 [facility] Start: 07-28-2023 End: 07-28-2023 [facility] Start: 07-28-2023 [facility] Start: 07-24-2023 [facility] Start: 07-22-2023 End: 07-22-2023 ambulatory [facility] Work Phone: Start: 07-22-2023 End: 07-22-2023 [facility] Start: 06-24-2023 End: 06-24-2023 ambulatory [facility] Work Phone: Start: 06-24-2023 End: 06-24-2023 [facility] Start: 06-24-2023 [facility] Start: 05-30-2023 End: 05-30-2023 ambulatory [facility] Work Phone: Start: 05-30-2023 End: 05-30-2023 [facility] Start: 05-30-2023 [facility] Start: 05-27-2023 End: 05-27-2023 ambulatory [facility] Work Phone: Start: 05-27-2023 End: 05-27-2023 [facility] Start: 05-27-2023 [facility] Start: 05-19-2023 End: 05-19-2023 ambulatory [facility] Work Phone: Start: 05-19-2023 End: 05-19-2023 [facility] Start: 05-19-2023 [facility] Start: 04-29-2023 End: 04-29-2023 ambulatory [facility] Work Phone: Start: 04-29-2023 End: 04-29-2023 [facility] Start: 04-29-2023 [facility] Start: 04-27-2023 End: 04-27-2023 ambulatory [facility] Work Phone: Start: 04-27-2023 End: 04-27-2023 [facility] Start: 04-04-2023 End: 04-04-2023 [facility] Start: 04-01-2023 End: 04-01-2023 [facility] Start: 03-04-2023 End: 03-04-2023 ambulatory [facility] Work Phone: Start: 03-04-2023 End: 03-04-2023 [facility] Start: 02-25-2023 End: 02-25-2023 Patient encounter procedure Luz Daniel MD Work Phone: [facility] [place] Comment on above: Rheumatoid arthritis involving both hands 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 rheumatoid factor (HCC) (Primary Dx); Granulomatosis with polyangiitis with renal involvement (HCC) Start: 02-25-2023 End: 02-25-2023 ambulatory [facility] Work Phone: Start: 02-25-2023 End: 02-25-2023 [facility] Start: 02-04-2023 End: 02-04-2023 ambulatory [facility] Work Phone: Start: 02-04-2023 End: 02-04-2023 [facility] Start: 02-04-2023 [facility]istered [facility] [employer] [facility] Start: 01-25-2023 End: 01-25-2023 ambulatory [facility] Work Phone: Start: 01-25-2023 End: 01-25-2023 [facility] Start: 01-25-2023 [facility] Start: 01-19-2023 End: 01-19-2023 [facility] Start: 01-19-2023 [facility] [facility] Start: 01-07-2023 End: 01-07-2023 ambulatory [facility] Work Phone: Start: 01-07-2023 End: 01-07-2023 [facility] Start: 01-07-2023 [facility] Start: 12-28-2022 End: 12-28-2022 ambulatory [facility] Work Phone: Start: 12-28-2022 End: 12-28-2022 [facility] [facility] Start: 12-28-2022 [facility] Start: 12-15-2022 End: 12-15-2022 [facility] Start: 12-15-2022 [facility] Start: 12-10-2022 End: 12-10-2022 ambulatory [facility] Work Phone: Start: 12-10-2022 End: 12-10-2022 [facility] [facility] Start: 11-17-2022 End: 11-17-2022 ambulatory [facility] Work Phone: Start: 11-17-2022 End: 11-17-2022 [facility] [facility] Start: 11-17-2022 Registered [facility] [facility] Start: 11-12-2022 End: 11-12-2022 [facility] Start: 11-12-2022 [facility]istered [facility] [employer] Start: 11-03-2022 End: 11-03-2022 Patient encounter procedure [facility] Chair 1 [facility] Comment on above: 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) Start: 11-02-2022 Orders Only Adam Tee MD Work Phone: [facility] [place] Comment on above: 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) Start: 10-27-2022 End: 10-27-2022 ambulatory [facility] Work Phone: Start: 10-27-2022 End: 10-27-2022 Departed Referred [facility] Start: 10-27-2022 Registered Referred [facility] Start: 10-15-2022 End: 10-15-2022 Departed Referred [facility] Start: 10-15-2022 Registered Referred [facility] Start: 09-27-2022 End: 09-27-2022 ambulatory [facility] Work Phone: Start: 09-27-2022 End: 09-27-2022 Departed Referred [facility] Start: 09-27-2022 Registered Referred [facility] Start: 09-17-2022 End: 09-17-2022 ambulatory [facility] Work Phone: Start: 09-17-2022 End: 09-17-2022 Departed Referred [facility] Start: 09-17-2022 Registered Referred [facility] Start: 08-27-2022 End: 08-27-2022 Patient encounter procedure Luz Daniel MD Work Phone: [facility] [place] Comment on above: Rheumatoid arthritis involving both hands 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 rheumatoid factor (HCC) (Primary Dx) Start: 08-27-2022 End: 08-27-2022 [facility] Start: 08-27-2022 [facility]istered [facility] Start: 08-23-2022 End: 08-23-2022 ambulatory [facility] Work Phone: Start: 08-23-2022 End: 08-23-2022 Departed Referred [facility] Start: 08-23-2022 Registered Referred [facility] Start: 08-12-2022 End: 08-12-2022 ambulatory [facility] Work Phone: Start: 08-12-2022 End: 08-12-2022 Departed Referred [facility] Start: 07-28-2022 End: 07-28-2022 ambulatory [facility] Work Phone: Start: 07-28-2022 End: 07-28-2022 Departed Referred [facility] Start: 07-28-2022 Registered Referred [facility] Start: 07-27-2022 End: 07-27-2022 Patient encounter procedure Anthony Olivares MD Work Phone: [facility] Comment on above: 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); Stage 3a chronic kidney disease (HCC) Start: 07-27-2022 ambulatory Anthony Olivares MD Work Phone: [facility] Start: 07-15-2022 End: 07-15-2022 ambulatory [facility] Work Phone: Start: 07-15-2022 End: 07-15-2022 Departed Referred [facility] Start: 07-15-2022 Registered Referred [facility] Start: 06-28-2022 End: 06-28-2022 ambulatory [facility] Work Phone: Start: 06-28-2022 End: 06-28-2022 Departed Referred [facility] Start: 06-28-2022 Registered Referred [facility] Start: 06-17-2022 End: 06-17-2022 ambulatory [facility] Work Phone: Start: 06-17-2022 End: 06-17-2022 Departed Referred [facility] [employer] [facility] Start: 05-27-2022 End: 05-27-2022 Departed Referred [facility] [employer] [facility] Start: 05-20-2022 End: 05-20-2022 Departed Referred [facility] [employer] [facility] Start: 05-05-2022 Patient encounter procedure Anthony Olivares MD Work Phone: [facility] [place] Comment on above: Granulomatosis with polyangiitis with [...] (HCC) Start: 04-27-2022 End: 04-27-2022 Departed Referred [facility] [employer] Start: 04-27-2022 Registered Referred [facility] [employer] [facility] Start: 04-22-2022 End: 04-22-2022 Departed Referred [facility] [employer] Start: 04-22-2022 Registered Referred [facility] [employer] Start: 04-21-2022 End: 04-21-2022 Departed Referred [facility] [employer] Start: 04-21-2022 Registered Referred [facility] [employer] Start: 04-06-2022 End: 04-06-2022 Departed Referred [facility] [employer] [facility] Start: 04-06-2022 Registered Referred [facility] [employer] [facility] Start: 04-05-2022 End: 04-05-2022 Departed Referred [facility] [employer] Start: 04-05-2022 [facility] Start: 04-02-2022 End: 04-02-2022 [facility] Start: 04-02-2022 [facility] Start: 03-30-2022 Orders Only Anthony Olivares MD Work Phone: [facility] Comment on above: Granulomatosis with polyangiitis, unspecified whether renal involvement (HCC) (Primary Dx) Start: 03-25-2022 End: 03-25-2022 [facility] Start: 03-25-2022 [facility] Start: 03-19-2022 End: 03-19-2022 [facility] [employer] Start: 03-19-2022 [facility] Start: 02-25-2022 End: 02-25-2022 [facility] Start: 02-25-2022 [facility] Start: 02-18-2022 End: 02-18-2022 [facility] Start: 01-28-2022 End: 01-28-2022 [facility] [employer] Start: 01-28-2022 [facility] Start: 01-25-2022 End: 01-25-2022 [facility] [employer] Start: 01-25-2022 [facility]istered [facility] [employer] Start: 01-04-2022 End: 01-04-2022 [facility] [employer] [facility] Start: 01-04-2022 Registered [facility] [employer] Start: 12-07-2021 End: 12-07-2021 Departed Referred [facility] Start: 12-03-2021 Registered Referred [facility] Start: 11-09-2021 Registered Referred [facility] Start: 11-05-2021 Registered Referred [facility] Start: 10-28-2020 End: 11-04-2020 Evaluation and management of inpatient [place] Work Phone: [facility] [employer] Comment on above: Pneumonia due to COV ID-19 virus (Primary Dx); Hypoxia; Hypokalemia; Stage 3 chronic kidney disease, unspecified whether stage 3a or 3b CKD Start: 11-14-2019 Encounter for genera l adult medical examination without abnormal findings [facility] Start: 11-14-2019 End: 08-05-2020 Patient encounter procedure HODA BROWNING [facility] Start: 08-06-2019 End: 08-06-2019 Patient encounter procedure HODA BROWNING [facility] Start: 10-21-2009 End: 01-29-2013 Patient encounter status Ronny Polanco MD Work Phone: [facility] Encounter for genera l adult medical examination without abnormal findings [facility] Procedures Date Procedure Procedure Detail Performing Clinician Start: 08-14-[address] [place] Elgin Bal MD Work Phone: Start: 08-14-2025 Serum inorganic phos phate measurement Dr. Elgin Bal MD Work Phone: Start: 08-02-[address] [place] Elgin Bal MD Work Phone: Start: 07-29-2025 Serum inorganic phos phate measurement Dr. Elgin Bal MD Work Phone: Start: 07-29-2025 Vitamin D, 25-hydrox y measurement Dr. Elgin Bal MD Work Phone: Comment on above: Vitamin D StatusDefi ciency: <20 ng/mL (50nmol/L)Insufficiency: 20-30 ng/mL (50-75 nmol/L)Sufficiency: 30-100 ng/mL (75-250 nmol/L)Toxicity: >100 ng/mL (>250 nmol/L) Start: 07-02-[address] Elgin Bal MD Work Phone: Start: 06-19-[address] Elgin Bal MD Work Phone: Start: 06-19-2025 Serum inorganic phos phate measurement Dr. Elgin Bal MD Work Phone: Start: 05-26-2025 Urnls dip stick/tabl et reagent auto microscopy Dr. Elgin Bal MD Work Phone: Start: 05-26-[address] Keyur Bal MD Work Phone: Start: 05-02-[address] Elgin Bal MD Work Phone: Start: 04-24-[address] Elgin Bal MD Work Phone: Start: 04-24-2025 Serum inorganic phos phate measurement Dr. Elgin Bal MD Work Phone: Start: 04-01-[address] Elgin Bal MD Work Phone: Start: 02-27-[address] Elgin Bal MD Work Phone: Start: 01-30-[address] Elgin Bal MD Work Phone: Start: 01-03-[address] Elgin Bal MD Work Phone: Start: 01-03-2025 Urine microalbumin/creatinine ratio measurement Dr. Elgin Bal MD Work Phone: Comment on above: Test not performed Start: 01-02-2025 Assay of phosphorus inorganic Dr. Elgin Bal MD Work Phone: Start: 01-02-[address] [place] Elgin Bal MD Work Phone: [...] Comment: URIN ALYSIS Performed By: #### [id number] #### [place] [id number] Start: 04-08-2020 Urinalysis HODA WYATT Comment on above: Result Comment: URIN ALYSIS Performed By: #### [id number] #### [place] [id number] Start: 02-04-2020 Urinalysis HODA WYATT Comment on above: Result Comment: URIN ALYSIS Performed By: #### [id number] #### [place] [id number] Start: 01-07-2020 Urinalysis HODA WYATT Comment on above: Result Comment: URIN ALYSIS Performed By: #### [id number] #### [place] [id number] Start: 12-10-2019 Urinalysis HODA EASLEY YOSELIN Comment on above: Result Comment: URIN ALYSIS Performed By: #### [id number] #### [place] [id number] Start: 11-05-2019 Urinalysis HODA WYATT Comment on above: Result Comment: URIN ALYSIS Performed By: #### [id number] #### [place] [id number] Start: 10-08-2019 Urinalysis HODA GOODRICHELIJAH Comment on above: Result Comment: URIN ALYSIS Performed By: #### [id number] #### [place] [id number] Start: 09-10-2019 Urinalysis HODA GOODRICHELIJAH Comment on above: Result Comment: URIN ALYSIS Performed By: #### [id number] #### [place] [id number] Start: 08-10-2019 Adult depression scr eening assessment Anthony Olivares MD Work Phone: Start: 08-06-2019 Urinalysis HODATERRELL EASLEY YOSELIN Comment on above: Result Comment: URIN ALYSIS Performed By: #### [id number] #### [place] [id number] Start: 07-23-2019 Colonoscopy Anthony rosa MD Work Phone: Start: 08-09-2018 Lipid 1996 panel - S ellen or Plasma Luz Daniel MD Work Phone: Urine culture Urine culture Plan of Treatment Date Care Activity Detail Author Start: 12-20-2028 Lipid panel Lipid Screening [facility] Start: 12-20-2026 Diabetes Screening Diabetes Screenin g [facility] Start: 09-16-2025 End: 09-16-2025 Patient encounter procedure 09/16/2025 9:00 AM EST Office Visit [facility] [address] [place] [address] [address] [place], [place] [id number] Dorota Smith MD [address] [place], [place] [id number] 6 months in office PA [facility] Comment on above: 6 months in office P A Start: 09-14-2025 BP Controlled (<130/80) BP Controlle d (<130/80) [facility] Start: 08-15-2025 End: 08-15-2025 Patient encounter procedure 08/15/2025 2:20 PM EDT Office Visit [facility] [address] [place] [id number] Anthony Olivares MD [address] [place], [place] [id number] f/u [facility] Comment on above: f/u Start: 07-17-2025 BP Controlled (<130/80) BP Controlle d (<130/80) [facility] Start: 07-15-2025 Influenza vaccination Influenza Vacc ine (#1) [facility] Start: 05-23-2025 End: 05-23-2025 Patient encounter procedure 05/23/2025 4:00 PM EDT Office Visit [facility] [address] [place] [id number] Anthony Olivares MD [address] [place], [place] [phone] Virtual f/u per Dr Olivares.I spoke with Nursing Facility where patient is at [facility] Comment on above: Virtual f/u per Dr Leonie herrera.I spoke with Nursing Facility where patient is at Start: 03-20-2025 End: 03-20-2025 Patient encounter procedure 03/20/2025 9:00 AM EDT Office Visit [facility] [address] [place], [place] [phone] Leeann Lopez PA-C [address] [place], [place] [id number] 6 months in office PA [facility] Comment on above: 6 months in office P A Start: 02-26-2025 End: 02-26-2025 Patient encounter procedure 02/26/2025 9:00 AM EDT Appointment [facility] [address] [place] [address] [address] Elise Jack, granulomatosis, () Infusion Center Comment on above: Dr Elise Jack, granulomatosis, () Start: 02-20-2025 Covid-19 Vaccine (9 - Pfizer risk ) Covid-19 Vaccine (9 - Pfizer risk ) [facility] Start: 12-20-2024 BP Controlled (<130/80) BP Controlle d (<130/80) [facility] Start: 12-20-2024 Complete blood count Hemoglobin/Timo tocrit [facility] Start: 12-20-2024 Creatinine measurement Serum Creatin ine [facility] Start: 11-20-2024 End: 11-20-2024 Patient encounter procedure 11/20/2024 11:00 AM EST Office Visit [facility] [address] [place] [phone] Anthony Olivares MD [address] [place] [address] follow up in October per Dr Olivares [facility] Comment on above: follow up in per Dr Olivares Start: 11-14-2024 Medicare Advantage Annual Wellness Visit Medicare Advantage Annual Wellness Visit [facility] Start: 10-17-2024 Covid-19 Vaccine () Covid-19 Vaccine () [facility] Start: 09-14-2024 End: 09-14-2024 Patient encounter procedure 09/14/2024 9:00 AM EDT Office Visit [facility] [address] [place], [place] [phone] Dorota Smith MD [address] [place], [place] [address] RA/Trans from Dr Daniel to [facility] Comment on above: RA/Trans from Dr Ruben welsh to [facility] Start: 08-09-2024 End: 08-09-2024 Patient encounter procedure 08/09/2024 7:00 AM EDT Appointment Infusion [facility] [address] [place] [address] rituximab, M32.30 elise(RK) [facility]fusion [facility] Comment on above: rituximab, M32.30 , elise(RK) Start: 07-17-2024 End: 07-17-2024 Patient encounter procedure 07/17/2024 11:20 AM EDT Office Visit [facility]ney [facility] [address] [address] Anthony Olivares MD [address] [place] [address] Vasculitis Renal follow up [facility] Comment on above: Vasculitis Renal fol low up Start: 07-15-2024 Covid-19 Vaccine ( season) Covid-19 Vaccine ( season) [facility] Start: 07-15-2024 Covid-19 Vaccine ( season) Covid-19 Vaccine ( season) [facility] Start: 07-15-2024 Influenza vaccination Influenza Vacc ine (#1) [facility] Start: 05-21-2024 End: 05-21-2024 Patient encounter procedure 05/21/2024 9:20 AM EDT Office Visit [facility] [address] [place] [address] Dorota Smith MD [address] [place], [place] [address] RA/Trans [facility] Dr Daniel to [facility] Comment on above: RA/Trans from Dr Ruben welsh to [facility] Start: 03-09-2024 Lipid panel Lipid Screening [facility] Start: 02-21-2024 PROSTATE CANCER SCREENING DISCUSSION PROSTATE CANCER SCREENING DISCUSSION [facility] Start: 02-21-2024 Prostate specific antigen measurement Prostate Cancer Screening Discussion [facility] Start: 12-20-2023 End: 03-20-2024 25-hydroxyvitamin D3 [Mass/volume] in Serum or Plasma [facility] Work Phone: Comment on above: Expected: 12/20/2023 , Expires: 03/20/2024 Start: 12-12-2023 Covid-19 Vaccine () Covid-19 Vaccine () [facility] Start: 11-14-2023 Behavioral Health Screening Behavioral Health Screening [facility] Start: 11-14-2023 [facility] Start: 11-04-2023 Diabetes Screening Diabetes Screenin g [facility] Start: 11-03-2023 BP CONTROLLED (<130/80) BP CONTROLLE D (<130/80) [facility] Start: 09-18-2023 DIABETES SCREEN DIABETES SCREEN [facility] Start: 09-18-2023 Diabetes Screening Diabetes Screenin g [facility] Start: 08-09-2023 Lipid 1996 panel - S ellen or Plasma Lipid Screening [facility] Start: 08-09-2023 LIPID SCREEN LIPID SCREEN [facility] Start: 07-15-2023 Covid-19 Vaccine () Covid-19 Vaccine () [facility] Start: 07-15-2023 Influenza vaccination [facility] Start: 2023 RSV Vaccine (1 - 1-d ose 60+ series) RSV Vaccine (1 - 1-dose 60+ series) [facility] Start: 2023 RSV Vaccine (1 - Ris k 60-74 years 1-dose series) RSV Vaccine (1 - Risk 60-74 years 1-dose series) [facility] Start: 11-14-2022 DEPRESSION ASSESSMENT DEPRESSION ASS ESSMENT [facility] Start: 11-03-2022 End: 11-03-2023 Chronic hepatitis differentiation between hepatitis B and C virus panel - Serum or Plasma HEP REMOTE PANEL BL Lab Routine Granulomatosis with polyangiitis with renal involvement (HCC) Expected: 11/03/2022, Expires: 11/03/2023 [facility] Work Phone: Comment on above: Expected: 11/03/2022 , Expires: 11/03/2023 Start: 07-23-2022 Colonoscopy COLONOSCOPY [facility] Start: 07-23-2022 COLORECTAL CANCER SCREENING COLORECTAL CANCER SCREENING [facility] Start: 07-23-2022 Screening for malign ant neoplasm of colon [facility] Start: 07-15-2022 Influenza vaccination INFLUENZA (#1) [facility] Start: 04-29-2022 COVID-19 VACCINE (6 - Booster for Pfizer series) COVID-19 VACCINE (6 - Booster for Pfizer series) [facility] Start: 01-04-2022 COVID-19 VACCINE (5 - Booster for Pfizer series) COVID-19 VACCINE (5 - Booster for Pfizer series) [facility] Start: 11-14-2021 DEPRESSION ASSESSMENT DEPRESSION ASS ESSMENT [facility] Start: 11-04-2021 Creatinine measurement [facility] Start: 11-04-2021 Potassium monitoring [facility] [place] Start: 11-02-2021 HEMOGLOBIN/HEMATOCRIT HEMOGLOBIN/HEM ATOCRIT [facility] Start: 09-18-2021 SERUM CREATININE SERUM CREATININE Cl [facility] Start: 11-09-2020 Influenza vaccination LUNG CANCER SC REENING [facility] Start: 11-09-2020 Screening for malign ant neoplasm of lung Lung Cancer Screening [facility] Start: 08-10-2020 Adult depression screening assessment DEPRESSION SCREENING [facility] Start: 07-15-2020 Influenza vaccination Flu vaccine (# 1) [facility] [place] Start: 02-21-2020 ANNUAL PCP TEAM SPARES SCHEDULER DIPTI DISEASE VISIT ANNUAL PCP TEAM CHRONIC DISEASE VISIT [facility] Start: 07-10-2019 PNEUMOCOCCAL (3 - PP SV23 if available, else PCV20) PNEUMOCOCCAL (3 - PPSV23 if available, else PCV20) [facility] Start: 07-10-2019 PNEUMOCOCCAL (3 - PP SV23 or PCV20) PNEUMOCOCCAL (3 - PPSV23 or PCV20) [facility] Start: 07-10-2019 Pneumococcal vaccination Pneum ococcal Vaccine (3 - PPSV23 or PCV20) [facility] Start: 09-04-2018 Pneumococcal vaccination Pneum ococcal Vaccine (3 of 3 - PPSV23 or PCV20) [facility] Start: 08-16-2014 TWO PNEUMOVAX 5 YEAR S APART PRIOR TO AGE 65 (#2) TWO PNEUMOVAX 5 YEARS APART PRIOR TO AGE 65 (#2) [facility] Start: 2013 SHINGRIX VACCINE (1 of 2) SHINGRIX VACCINE (1 of 2) [facility] Start: 2008 COLOGUARD (FIT-DNA) COLOGUARD (FIT-D NA) [facility] Start: [address] COLONOGRAPHY [facility] Start: 2008 FECAL OCCULT BLOOD FECAL OCCULT BLOO D [facility] Start: 2008 Screening for malign ant neoplasm of colon [facility] Start: 2008 SIGMOIDOSCOPY SIGMOIDOSCOPY [facility] Start: 1982 SHINGRIX VACCINE (1 of 2) SHINGRIX VACCINE (1 of 2) [facility] Start: 1982 Urine microalbumin profile [facility] Start: 1981 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 Annual PCP Team Chronic Disease Visit [facility] Start: 1981 Anxiety Screening Anxiety Screening [facility] Start: 1981 BP CONTROLLED (<130/80) BP CONTROLLE D (<130/80) [facility] Start: 1981 Depression Screening Depression Scre ening [facility] CBC Auto Differential CBC Auto D ifferential Lab Routine Daily until discontinued starting 11/03/2020, 2 completed [facility] [place] Comment on above: Daily until disconti nued starting 11/03/2020, 2 completed End: 12-19-2024 CBC W Auto Differential panel - Blood CBC + DIFF Lab Routine Stage 3b chronic kidney disease (HCC) Granulomatosis with polyangiitis with renal involvement (HCC) Once per month for 13 Occurrences starting 12/20/2023 until 12/19/2024, 1 completed [facility] Work Phone: Comment on above: Once per month for 1 3 Occurrences starting 12/20/2023 until 12/19/2024, 1 completed End: 05-23-2026 CBC W Auto Differential panel - Blood COMPLETE BLOOD COUNT AND DIFFERENTIAL Lab Routine Granulomatosis with polyangiitis with renal involvement (HCC) Every 2 months for 7 Occurrences starting 05/23/2025 until 05/23/2026 [facility] Comment on above: Every 2 months for 7 Occurrences starting 05/23/2025 until 05/23/2026 End: 12-19-2024 Comprehensive metabolic 2000 panel - Serum or Plasma COMP METABOLIC PANEL Lab Routine Stage 3b chronic kidney disease (HCC) Granulomatosis with polyangiitis with renal involvement (HCC) Once per month for 13 Occurrences starting 12/20/2023 until 12/19/2024, 1 completed [facility] Work Phone: Comment on above: Once per month for 1 3 Occurrences starting 12/20/2023 until 12/19/2024, 1 completed End: 05-23-2026 Comprehensive metabolic 2000 panel - Serum or Plasma COMPREHENSIVE METABOLIC PANEL Lab Routine Granulomatosis with polyangiitis with renal involvement (HCC) Every 2 months for 7 Occurrences starting 05/23/2025 until 05/23/2026 [facility] Work Phone: Comment on above: Every 2 months for 7 Occurrences starting 05/23/2025 until 05/23/2026 Comprehensive Metabo lic Panel w/ Reflex to MG Comprehensive Metabolic Panel w/ Reflex to MG Lab Routine Daily until discontinued starting 10/28/2020, 7 completed [place], [place] Comment on above: Daily until disconti nued starting 10/28/2020, 7 completed Nasal Cannula Oxygen Nasal Cannu la Oxygen Respiratory Care Routine Daily until discontinued starting 10/28/2020 [place] Comment on above: Daily until disconti nued starting 10/28/2020 Nebulizer therapy HHN Treatment Respiratory Care Routine 0600, 1000, 1400, 1800, 2200 until discontinued starting 10/30/2020 [place] Comment on above: 0600, 1000, 1400, 18 00, 2200 until discontinued starting 10/30/2020 Oxygen therapy [[facility] Data Set] Initiate Oxygen Therapy Protocol Respiratory Care Routine Daily until discontinued starting 10/28/2020 [place] Comment on above: Daily until disconti nued starting 10/28/2020 End: 12-19-2024 Phosphate [Mass/volume] in Serum or Plasma PHOSPHORUS INORGANIC Lab Routine Stage 3b chronic kidney disease (HCC) Granulomatosis with polyangiitis with renal involvement (HCC) Once per month for 13 Occurrences starting 12/20/2023 until 12/19/2024, 1 completed [facility] Work Phone: Comment on above: Once per month for 1 3 Occurrences starting 12/20/2023 until 12/19/2024, 1 completed End: 05-23-2026 Phosphate [Mass/volume] in Serum or Plasma PHOSPHORUS INORGANIC Lab Routine Granulomatosis with polyangiitis with renal involvement (HCC) Every 2 months for 7 Occurrences starting 05/23/2025 until 05/23/2026 [facility] Comment on above: Every 2 months for 7 Occurrences starting 05/23/2025 until 05/23/2026 End: 12-19-2024 Protein/Creatinine [Mass Ratio] in Urine PROTEIN CREATININE RATIO Lab Routine Granulomatosis with polyangiitis with renal involvement (HCC) Once per month for 13 Occurrences starting 12/20/2023 until 12/19/2024 [facility] Work Phone: Comment on above: Once per month for 1 3 Occurrences starting 12/20/2023 until 12/19/2024 UA DIP, URINE (POC) UA DIP, URIN E (POC) Lab Routine Screening for genitourinary condition 1 Occurrences starting 11/20/2024 [facility] Work Phone: Comment on above: 1 Occurrences starti ng 11/20/2024 UA DIP, URINE (POC) UA DIP, URIN E (POC) Lab Routine Screening for genitourinary condition 1 Occurrences starting 05/23/2025 [facility] Work Phone: Comment on above: 1 Occurrences starti ng 05/23/2025 End: 12-19-2024 Urinalysis complete panel - Urine URINALYSIS, WITH MICROSCOPIC Lab Routine Granulomatosis with polyangiitis with renal involvement (HCC) Once per month for 13 Occurrences starting 12/20/2023 until 12/19/2024 [facility] Work Phone: Comment on above: Once per month for 1 3 Occurrences starting 12/20/2023 until 12/19/2024 End: 05-23-2026 Urinalysis complete panel - Urine URINALYSIS, WITH MICROSCOPIC Lab Routine Granulomatosis with polyangiitis with renal involvement (HCC) Every 2 months for 7 Occurrences starting 05/23/2025 until 05/23/2026 [facility] Comment on above: Every 2 months for 7 Occurrences starting 05/23/2025 until 05/23/2026 [facility] Immunizations Immunization Date Immunization Notes Care Provider [facility] 08-15-2024 influenza virus vacc ine, unspecified formulation Anthony Olivares MD Work Phone: [facility] 08-15-2023 influenza virus vacc ine, unspecified formulation Dorota Smith MD Work Phone: [facility] 08-18-2021 influenza, injectabl e, quadrivalent, preservative free Anthony Olivares MD Work Phone: [facility] Work Phone: 08-18-2021 influenza virus vacc ine, unspecified formulation Luz Daniel MD Work Phone: [facility] 08-14-2021 COVID-19 vaccine, ag e 12+ yr ([employer] - PURPLE TOP) Anthony Olivares MD Work Phone: [facility] Work Phone: 08-17-2019 influenza, injectabl e, quadrivalent, preservative free Anthony Olviares MD Work Phone: [facility] 08-02-2018 influenza, injectabl e, quadrivalent, preservative free Anthony Olivares MD Work Phone: [facility] 07-10-2018 pneumococcal conjuga te vaccine, 13 valent Anthony Olivares MD Work Phone: [facility] 08-14-2016 Influenza virus vaccine [facility] 08-14-2016 influenza, seasonal, injectable, preservative free Anthony Olivares MD Work Phone: [facility] Work Phone: 07-30-2016 influenza, injectabl e, quadrivalent, contains preservative Anthony Olivares MD Work Phone: [facility] 08-21-2015 influenza, injectabl e, quadrivalent, contains preservative Anthony Olivares MD Work Phone: [facility] 09-27-2014 influenza, seasonal, injectable Anthony Olivares MD Work Phone: [facility] 09-06-2013 influenza virus vacc ine, unspecified formulation Anthony Olivares MD Work Phone: [facility] 09-07-2012 influenza virus vacc ine, unspecified formulation Anthony Olivares MD Work Phone: [facility] Work Phone: 11-24-2010 influenza virus vacc ine, unspecified formulation Anthony Olivares MD Work Phone: [facility] Work Phone: 08-16-2009 influenza virus vacc ine, unspecified formulation Anthony Olivares MD Work Phone: [facility] 08-16-2009 pneumococcal polysaccharide vaccine, 23 valent Anthony Olivares MD Work Phone: [facility] 10-15-2000 influenza virus vacc ine, whole virus Anthony Olivares MD Work Phone: [facility] Work Phone: Payers Date Payer Category Payer Self-pay [id number] [phone] [id number] 2020 Medicaid [id number] 2020 Medicare [id number] 2020 Medicare UHC MEDICARE MYC ARE [facility] MEDICARE [id number] 2020-Present [phone] [address] [place] [address] Medicare [id number] 2020 Medicare (Managed Care) [facility] MEDICARE [id number] 2020 Private Health Insurance [id number].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 01/05/2019 9:49 AM Advance Directive(s) 06/12/2018 10:01 AM Advance Directive(s) 08/24/2016 10:32 PM Advance Directive(s) 08/11/2016 2:31 PM Advance Directive Response Recorded Date/ Time Advance Directives No July 12:38am Living Will No March 02, 2019 12:12pm Power of Motocross Racer No March 02 12:12pm Advance Directive Response [...] with shortness of breath and hypoxia from [place]. He had a positive COVID19 test (more [...] 10/28/20 0000 -- -- -- Aminah León [phone] Admitting Physician: Farrukh Diaz MD PCP: No primary care provider on file. Discharging Nurse: [facility] Unit/Room#: 468/4681 Discharging Unit Phone Number: [phone] Emergency Contact: No emergency contact information on [...] Assisted Dressing Assisted Toileting Independent Feeding Independent Economic Analysis Director Assisted Med Delivery whole Wound Care [...] Readmission: 20 Discharging to Facility/ Agency Name: [facility] Address: [address] [place] [address] Dialysis Facility (if applicable) Name: Address: Dialysis Schedule: Phone: Fax: Physician Neonatology/Research Associate Quality Control Qc signature: at12:24 PM EST PHYSICIAN SECTION Prognosis: [...] PM EST Report given to Yesenia at [place]. * Amaris Ibrahim RCP - 11/04/2020 12:15 PM EST [facility] Respiratory Care Department Progress Note SpO2 [...] Daniel MD - 11/03/2020 6:05 PM EST [facility] Progress Note Subjective/ 55 [...] in remission from renal perspective. No urgent FRONT OFFICE SPEC indications. Will follow. [facility] * Farrukh Diaz MD - 11/03/2020 1:09 PM EST Hospitalist Progress Note 11/03/2020 1:09 PM [phone]: Please page ks [phone] for patient care issues. [phone]: Please page [facility] night Hospitalist for any issues. [...] of Hospitalist Medicine Inpatient Medical Services PAGER: [phone] * Piyush Daniel MD - 11/02/2020 10:00 [...] remission atleast from renal perspective. No urgent FRONT OFFICE SPEC indications. Will follow. [facility] * Farrukh Diaz MD - 11/02/2020 3:16 PM EST Hospitalist Progress Note 11/02/2020 3:16 PM [phone]: Please page ks [phone] for patient care issues. [phone]: Please page [facility] Hospitalist for any issues. Subjective: Admit [...] of Hospitalist Medicine Inpatient Medical Services PAGER: [phone] * Piyush Daniel MD - 11/01/2020 8:04 PM EST [facility] Progress Note Subjective/ 55 [...] mL 5 mL Oral Q4H PRN Farrukh iDaz MD 5 mL at 10/29/20 0702 Vitamin [...] remission atleast from renal perspective. No urgent FRONT OFFICE SPEC indications. Will follow. [facility] * Farrukh Diaz MD - 11/01/2020 3:07 PM EST Hospitalist Progress Note 11/01/2020 3:08 PM [phone]: Please page ks [phone] for patient care issues. [phone]: Please page [facility] night Hospitalist for any issues. [...] of Hospitalist Medicine Inpatient Medical Services PAGER: [phone] * Mia Noyola, BACK PAD INSPECTOR - 11/01/2020 12:00 PM EST Patient Evaluation [...] EST Hospitalist Progress Note 11/01/2020 11:33 AM [phone]: Please page ks [phone] for patient care issues. [phone]: Please page [facility] Hospitalist for any issues. Subjective: Admit [...] of Hospitalist Medicine Inpatient Medical Services PAGER: [phone] * Bakari Hdz MD - 10/31/2020 9:35 AM EST [facility] Progress Note Subjective/ 55 [...] solution 1 ampule 1 ampule Inhalation Q4H [place] Farrukh Diaz MD 1 ampule at 10/30/202226 [...] from renal perspective. D/w IMS. No urgent FRONT OFFICE SPEC indications. Will follow. [facility] * Farrukh Diaz MD - 10/30/2020 3:50 PM EST Hospitalist Progress Note 10/30/2020 3:50 PM [phone]: Please page ks [phone] for patient care issues. [phone]: Please page [facility] night Hospitalist for any issues. [...] NEGATIVE: No targets were detected by the [employer] Upper Respiratory Pathogens PCR Panel. _ Expected Result: Not Detected The [employer] Upper Respiratory Pathogens PCR Panel can detect [...] management decisions. This assay was developed by [employer] and distributed under an Emergency Use Authorization (EUA) granted by the FDA for the qualitative detection of SARS-CoV-2 nucleic acid. Provider and patient fact sheets can be found at https://www.fda. gov/media/363166/download and https://www.fda.gov/media/247517/download. Assessment / Plan 1. Acute hypoxic respiratory [...] of Hospitalist Medicine Inpatient Medical Services PAGER: [phone] * Bakari Hdz MD - 10/30/2020 10:18 AM EST [facility] Progress Note Subjective/ 55 [...] from renal perspective. D/w IMS. No urgent FRONT OFFICE SPEC indications. Will follow. [facility] * Jeanie Samuel - 10/30/2020 9:42 AM EST Nutrition rescreen completed. Patient assigned a level 1. * Farrukh Diaz MD - 10/29/2020 5:56 PM EST Hospitalist Progress Note 10/29/2020 5:56 PM [phone]: Please page ks [phone] for patient care issues. [phone]: Please page [facility] Hospitalist for any issues. Subjective: Admit [...] NEGATIVE: No targets were detected by the [employer] Upper Respiratory Pathogens PCR Panel. _ Expected Result: Not Detected The [employer] Upper Respiratory Pathogens PCR Panel can detect [...] management decisions. This assay was developed by [employer] and distributed under an Emergency Use Authorization (EUA) granted by the FDA for the qualitative detection of SARS-CoV-2 nucleic acid. Provider and patient fact sheets can be found at https://www.fda. gov/media/074335/download and https://www.fda.gov/media/379553/download. Assessment / Plan 1. Acute hypoxic respiratory [...] of Hospitalist Medicine Inpatient Medical Services PAGER: [phone] * Shirley Casillas RN - 10/29/2020 10:49 [...] test came back negative. Dr. Pro nursing solar panel installation supervisor made aware. documented in this encounter Assessments Diagnosis Pneumonia due to COVID-19 virus- Primary Hypoxia Hypoxemia Hypokalemia Hypopotassemia Stage 3 chronic kidney disease, unspecified whether stage 3a or 3b CKD Chief Complaint and Reason for Visit Chief Complaint HALFWAY LAB WOR K HALFWAY LABWORK HALFWAY LABWORK HALFWAY LABWORK HALFWAY LAB WORK HALFWAY LABWORK Chief Complaint HALFWAY LABWORK HALFWAY LABWORK HALFWAY LAB WORK HALFWAY LABWORK HALFWAY LABWORK HALFWAY LABWORK Chief Complaint HALFWAY LABWORK HALFWAY LAB WORK HALFWAY LABWORK HALFWAY LABWORK HALFWAY LABWORK LABWORK HALFWAY LABWORK Chief Complaint HALFWAY LABWORK HALFWAY LAB WORK HALFWAY LABWORK HALFWAY LABWORK HALFWAY LABWORK LABWORK HALFWAY LABWORK LABWORK Chief Complaint HALFWAY LAB WOR K HALFWAY LABWORK HALFWAY LABWORK HALFWAY LABWORK LABWORK HALFWAY LABWORK LABWORK LABWORK Chief Complaint HALFWAY LABWORK HALFWAY LABWORK LABWORK HALFWAY LABWORK LABWORK HALFWAY LABWORK LABWORK HALFWAY LAB WORK LABWORK Chief Complaint LABWORK HALFWAY LABWORK LABWORK HALFWAY LABWORK LABWORK HALFWAY LAB WORK LABWORK LABWORK LABWORK Chief Complaint LABWORK HALFWAY LABWORK LABWORK HALFWAY LABWORK LABWORK HALFWAY LAB WORK LABWORK LABWORK LABWORK HALFWAY LABWORK Chief Complaint HALFWAY LABWORK LABWORK HALFWAY LABWORK LABWORK HALFWAY LAB WORK LABWORK LABWORK LABWORK HALFWAY LABWORK HALFWAY LABWORK Chief Complaint LABWORK LABWORK LABWORK HALFWAY LABWORK HALFWAY LABWORK HALFWAY LABWORK Chief Complaint LABWORK LABWORK LABWORK HALFWAY LABWORK HALFWAY LABWORK LABWORK HALFWAY LABWORK Chief Complaint LABWORK LABWORK HALFWAY LABWORK HALFWAY LABWORK LABWORK HALFWAY LABWORK HALFWAY LAB WORK HALFWAY LABWORK Chief Complaint LABWORK HALFWAY LABWORK HALFWAY LABWORK LABWORK HALFWAY LABWORK HALFWAY LAB WORK HALFWAY LABWORK HALFWAY LABWORK Chief Complaint LABWORK HALFWAY LABWORK HALFWAY LAB WORK HALFWAY LABWORK HALFWAY LABWORK LABWORK HALFWAY LAB WORK LABWORK Chief Complaint HALFWAY LABWORK HALFWAY LAB WORK HALFWAY LABWORK HALFWAY LABWORK LABWORK HALFWAY LAB WORK LABWORK LABWORK Chief Complaint HALFWAY LABWORK HALFWAY LAB WORK HALFWAY LABWORK HALFWAY LABWORK LABWORK HALFWAY LAB WORK LABWORK LABWORK HALFWAY LAB WORK Chief Complaint HALFWAY LABWORK LABWORK HALFWAY LAB WORK LABWORK LABWORK HALFWAY LAB WORK HALFWAY LABWORK Chief Complaint LABWORK HALFWAY LAB WORK LABWORK LABWORK HALFWAY LAB WORK HALFWAY LABWORK LABWORK HALFWAY LABWORK Chief Complaint HALFWAY LAB WOR K LABWORK LABWORK HALFWAY LAB WORK HALFWAY LABWORK LABWORK HALFWAY LABWORK LABWORK Chief Complaint HALFWAY LAB WOR K LABWORK LABWORK HALFWAY LAB WORK HALFWAY LABWORK LABWORK HALFWAY LABWORK LABWORK HALFWAY LAB WORK Chief Complaint LABWORK LABWORK HALFWAY LAB WORK HALFWAY LABWORK LABWORK HALFWAY LABWORK LABWORK LABWORK HALFWAY LAB WORK HALFWAY LABWORK Chief Complaint LABWORK HALFWAY LAB WORK HALFWAY LABWORK LABWORK HALFWAY LABWORK LABWORK LABWORK HALFWAY LAB WORK HALFWAY LABWORK LABWORK Chief Complaint HALFWAY LAB WOR K HALFWAY LABWORK LABWORK HALFWAY LABWORK LABWORK LABWORK HALFWAY LAB WORK HALFWAY LABWORK LABWORK LABWORK Chief Complaint LABWORK LABWORK HALFWAY LABWORK HALFWAY LABWORK LABWORK LABWORK HALFWAY LAB WORK HALFWAY LABWORK Chief Complaint HALFWAY LABWORK HALFWAY LABWORK LABWORK LABWORK HALFWAY LAB WORK HALFWAY LABWORK HALFWAY LAB WORK LABWORK Chief Complaint LABWORK LABWORK HALFWAY LAB WORK HALFWAY LABWORK HALFWAY LAB WORK LABWORK LABWORK Chief Complaint HALFWAY LAB WOR K HALFWAY LABWORK HALFWAY LAB WORK LABWORK LABWORK HALFWAY LABWORK HALFWAY LABWORK Chief Complaint LABWORK LABWORK HALFWAY LABWORK HALFWAY LABWORK LABWORK Chief Complaint LABWORK LABWORK HALFWAY LABWORK HALFWAY LABWORK LABWORK HALFWAY LAB WORK Chief Complaint LABWORK LABWORK HALFWAY LABWORK HALFWAY LABWORK LABWORK HALFWAY LAB WORK LABWORK Chief Complaint HALFWAY LABWORK HALFWAY LABWORK LABWORK HALFWAY LAB WORK LABWORK HALFWAY LABWORK Chief Complaint HALFWAY LABWORK HALFWAY LABWORK LABWORK HALFWAY LAB WORK LABWORK HALFWAY LABWORK HALFWAY LAB WORK Chief Complaint LABWORK HALFWAY LAB WORK LABWORK HALFWAY LABWORK HALFWAY LAB WORK HALFWAY LAB WORK LABWORK Chief Complaint HALFWAY LAB WOR K LABWORK HALFWAY LABWORK HALFWAY LAB WORK HALFWAY LAB WORK LABWORK LABWORK Chief Complaint HALFWAY LABWORK HALFWAY LAB WORK HALFWAY LAB WORK LABWORK LABWORK LABWORK Chief Complaint Admit Date HALFWAY LAB WORK September 27 5:00am HALFWAY LAB WORK November 15, 2024 5:00am HALFWAY LAB WORK November 27, 2024 5:00am HALFWAY LAB WORK December 28 5:00am HALFWAY LAB WORK January 02 5:00am HALFWAY LAB WORK January 03 6:10am Chief Complaint Admit Date HALFWAY LAB WORK November 15, 2024 5:00am HALFWAY LAB WORK November 27, 2024 5:00am HALFWAY LAB WORK December 28 5:00am HALFWAY LAB WORK January 02 5:00am HALFWAY LAB WORK January 03 6:10am HALFWAY LAB WORK January 25, 2025 5 :00am Chief Complaint Admit Date HALFWAY LAB WORK November 15, 2024 5:00am HALFWAY LAB WORK November 27, 2024 5:00am HALFWAY LAB WORK December 28 5:00am HALFWAY LAB WORK January 02 5:00am HALFWAY LAB WORK January 03 6:10am HALFWAY LAB WORK January 25, 2025 5 :00am HALFWAY LAB WORK January 30, 2025 5 :00am Chief Complaint Admit Date HALFWAY LAB WORK November 15, 2024 5:00am HALFWAY LAB WORK November 27, 2024 5:00am HALFWAY LAB WORK December 28 5:00am HALFWAY LAB WORK January 02 5:00am HALFWAY LAB WORK January 03 6:10am HALFWAY LAB WORK January 25, 2025 5 :00am HALFWAY LAB WORK January 30, 2025 5 :00am LABWORKJ February 06, 2025 5:0 0am LABWORK February 11, 2025 5:0 0am Chief Complaint Admit Date HALFWAY LAB WORK November 27, 2024 5:00am HALFWAY LAB WORK December 28 5:00am HALFWAY LAB WORK January 02 5:00am HALFWAY LAB WORK January 03 6:10am HALFWAY LAB WORK January 25, 2025 5 :00am HALFWAY LAB WORK January 30, 2025 5 :00am LABWORKJ February 06, 2025 5:0 0am LABWORK February 11, 2025 5:0 0am LABWORK February 27, 2025 5:0 0am Chief Complaint Admit Date HALFWAY LAB WORK November 27, 2024 5:00am HALFWAY LAB WORK December 28 5:00am HALFWAY LAB WORK January 02 5:00am HALFWAY LAB WORK January 03 6:10am HALFWAY LAB WORK January 25, 2025 5 :00am HALFWAY LAB WORK January 30, 2025 5 :00am LABWORKJ February 06, 2025 5:0 0am LABWORK February 11, 2025 5:0 0am HALFWAY LAB WORK February 25, 2025 5 :00am LABWORK February 27, 2025 5:0 0am Chief Complaint Admit Date HALFWAY LAB WORK December 28 5:00am HALFWAY LAB WORK January 02 5:00am HALFWAY LAB WORK January 03 6:10am HALFWAY LAB WORK January 25, 2025 5 :00am HALFWAY LAB WORK January 30, 2025 5 :00am LABWORKJ February 06, 2025 5:0 0am LABWORK February 11, 2025 5:0 0am HALFWAY LAB WORK February 25, 2025 5 :00am LABWORK February 27, 2025 5:0 0am HALFWAY LAB WORK March 04, 2025 1 0:30pm Chief Complaint Admit Date HALFWAY LAB WORK January 25, 2025 5 :00am HALFWAY LAB WORK January 30, 2025 5 :00am LABWORKJ February 06, 2025 5:0 0am LABWORK February 11, 2025 5:0 0am HALFWAY LAB WORK February 25, 2025 5 :00am LABWORK February 27, 2025 5:0 0am HALFWAY LAB WORK March 04, 2025 1 0:30pm LABWORK March 27, 2025 5:00a m HALFWAY LAB WORK April 01, 2025 5:0 0am Chief Complaint Admit Date HALFWAY LAB WORK April 24, 2025 5: 00am LABWORK April 26, 2025 5:00 am HALFWAY LAB WORK May 02, 2025 5: 00am HALFWAY LAB WORK May 24, 2025 5: 00am HALFWAY LAB WORK May 26, 2025 8: 00pm HALFWAY LAB WORK May 28, 2025 5: 00am LABOWORK June 05, 2025 5:00 am LABWORK June 19, 2025 5:0 0am LABWORK June 20, 2025 5:0 0am HALFWAY LAB WORK June 27, 2025 5:00am HALFWAY LAB WORK July 01, 2025 6:38am HALFWAY LAB WORK July 02, 2025 5:00am LABOWRK July 29, 2025 5:00am Chief Complaint Admit Date HALFWAY LAB WORK April 24, 2025 5: 00am LABWORK April 26, 2025 5:00 am HALFWAY LAB WORK May 02, 2025 5: 00am HALFWAY LAB WORK May 24, 2025 5: 00am HALFWAY LAB WORK May 26, 2025 8: 00pm HALFWAY LAB WORK May 28, 2025 5: 00am [facility] June 05, 2025 5:00 am LABWORK June 19, 2025 5:0 0am LABWORK June 20, 2025 5:0 0am HALFWAY LAB WORK June 27, 2025 5:00am HALFWAY LAB WORK July 01, 2025 6:38am HALFWAY LAB WORK July 02, 2025 5:00am LABOWRK July 29, 2025 5:00am HALFWAY LAB WORK August 02 5:00am LABWORK August [...] skin eruption Procedures CONSULT TO DERMATOLOGY OFFICE/OUTPATIENT [facility] 60 MINUTES Dorota Smith MD [address] [facility] [address] [place] [address] Referral ID Status Reason Start Date Expiration Date Visits Requested Visits Authorized [id number] Authorized PCP Requested Referral 09/14/2024 09/14/2025 1 1 Additional Source Comments INFORMATION SOURCE (unrecogn ized section and content) DATE CREATED AUTHOR 06/07/2018 [facility] DATE CREATED AUTHOR AUTHOR'S ORGANIZ ATION 04/02/2019 [facility] DATE CREATED AUTHOR AUTHOR'S ORGANIZ ATION 03/30/2020 [facility] DATE CREATED AUTHOR AUTHOR'S ORGANIZ ATION 08/05/2020 [facility] DATE CREATED AUTHOR AUTHOR'S ORGANIZ ATION 11/21/2020 [facility] DATE CREATED AUTHOR AUTHOR'S ORGANIZ ATION 09/18/2024 [facility] DATE CREATED AUTHOR AUTHOR'S ORGANIZ ATION 08/20/2025 [facility] DATE CREATED AUTHOR AUTHOR'S ORGANIZ ATION 08/29/2025 [facility] DATE CREATED AUTHOR AUTHOR'S ORGANIZ ATION 09/19/2025 [facility] (unrecognized sect ion and content) No [...] 10 MG IV RITUXIMAB Anthony Olivares MD [address] [place] [address] 1, [facility] Main Infusion Chair [address] [place] [address] Referral ID Status Reason Start Date Expiration Date V isits Requested Visits Authorized [id number] Authorized 03/31/2022 11/13/2022 99 99 Reason Comments Shortness of Breath Reason Comments Follow Up Reason Comments Infusion iv rituximab Reason Comments Radio Main J1 Specialty Diagnoses / Procedures Referred By Ulises duncan Referred To Contact XR IMAGING Diagnoses Chronic pain of right knee Procedures XR KNEE LIMITED 2V AP/LAT RIGHT RADIOLOGIC EXAMINATION KNEE 1/2 VIEWS Luz Daniel MD [address] [address] Xr Imaging Referral ID Status Reason Start Date Expiration Date V isits Requested Visits Authorized [id number] Closed Auto-Generate d Referral 02/26/2022 03/28/2023 1 1 Reason Comments Rheumatoid Arthritis Reason Comments Follow Up RA- hands, stiff and swollen Reason Comments NO SHOW Reason Comments Patient Update Reason Comments Appointment Specialty Diagnoses / Procedures Referred By Ulises duncan Referred To Contact Diagnoses 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) Procedures INJ RUXIENCE, 10 MG Anthony Olivares MD [address] [place] [address] Infusion [address] [place] [address] [place] [address] Referral ID Status Reason Start Date Expiration Date V isits Requested Visits Authorized [id number] Authorized 12/27/2023 12/29/2024 24 24 Reason Comments [...] or prosecute any alcohol or drug abuse patient.[facility] the event this information is protected by the Federal Confidentiality of Alcohol and Drug Abuse Patient Records regulations: The Federal rules restrict any use of the information to criminally investigate or prosecute any alcohol or drug abuse patient.[facility] the event this information is protected by the Federal Confidentiality of Alcohol and Drug Abuse Patient Records regulations: The Federal rules restrict any use of the information to criminally investigate or prosecute any alcohol or drug abuse patient.[facility] the event this information is protected by the Federal Confidentiality of Alcohol and Drug Abuse Patient Records regulations: The Federal rules restrict any use of the information to criminally investigate or prosecute any alcohol or drug abuse patient.[facility] Hospital[facility] the event this information is protected by the Federal Confidentiality of Alcohol and Drug Abuse Patient Records regulations: The Federal rules restrict any use of the information to criminally investigate or prosecute any alcohol or drug abuse patient.[facility] Hospital[facility] the event this information is protected by the Federal Confidentiality of Alcohol and Drug Abuse Patient Records regulations: The Federal rules restrict any use of the information to criminally investigate or prosecute any alcohol or drug abuse patient.[facility] Hospital[facility] the event this information is protected by the Federal Confidentiality of Alcohol and Drug Abuse Patient Records regulations: The Federal rules restrict any use of the information to criminally investigate or prosecute any alcohol or drug abuse patient.[facility] Hospital[facility] the event this information is protected by the Federal Confidentiality of Alcohol and Drug Abuse Patient Records regulations: The Federal rules restrict any use of the information to criminally investigate or prosecute any alcohol or drug abuse patient.[facility] Hospital[facility] the event this information is protected by the Federal Confidentiality of Alcohol and Drug Abuse Patient Records regulations: The Federal rules restrict any use of the information to criminally investigate or prosecute any alcohol or drug abuse patient.[facility] HospitalIn the event this information is protected by the Federal Confidentiality of Alcohol and Drug Abuse Patient Records regulations: The Federal rules restrict any use of the information to criminally investigate or prosecute any alcohol or drug abuse patient.[facility] HospitalIn the event this information is protected by the Federal Confidentiality of Alcohol and Drug Abuse Patient Records regulations: The Federal rules restrict any use of the information to criminally investigate or prosecute any alcohol or drug abuse patient.[facility] HospitalIn the event this information is protected by the Federal Confidentiality of Alcohol and Drug Abuse Patient Records regulations: The Federal rules restrict any use of the information to criminally investigate or prosecute any alcohol or drug abuse patient.[facility] HospitalIn the event this information is protected by the Federal Confidentiality of Alcohol and Drug Abuse Patient Records regulations: The Federal rules restrict any use of the information to criminally investigate or prosecute any alcohol or drug abuse patient.[facility] HospitalIn the event this information is protected by the Federal Confidentiality of Alcohol and Drug Abuse Patient Records regulations: The Federal rules restrict any use of the information to criminally investigate or prosecute any alcohol or drug abuse patient.[facility] HospitalIn the event this information is protected by the Federal Confidentiality of Alcohol and Drug Abuse Patient Records regulations: The Federal rules restrict any use of the information to criminally investigate or prosecute any alcohol or drug abuse patient.[facility] HospitalIn the event this information is protected by the Federal Confidentiality of Alcohol and Drug Abuse Patient Records regulations: The Federal rules restrict any use of the information to criminally investigate or prosecute any alcohol or drug abuse patient.[facility] HospitalIn the event this information is protected by the Federal Confidentiality of Alcohol and Drug Abuse Patient Records regulations: The Federal rules restrict any use of the information to criminally investigate or prosecute any alcohol or drug abuse patient.[facility] HospitalIn the event this information is protected by the Federal Confidentiality of Alcohol and Drug Abuse Patient Records regulations: The Federal rules restrict any use of the information to criminally investigate or prosecute any alcohol or drug abuse patient.[facility] HospitalIn the event this information is protected by the Federal Confidentiality of Alcohol and Drug Abuse Patient Records regulations: The Federal rules restrict any use of the information to criminally investigate or prosecute any alcohol or drug abuse patient.[facility] HospitalIn the event this information is protected by the Federal Confidentiality of Alcohol and Drug Abuse Patient Records regulations: The Federal rules restrict any use of the information to criminally investigate or prosecute any alcohol or drug abuse patient.[facility] HospitalIn the event this information is protected by the Federal Confidentiality of Alcohol and Drug Abuse Patient Records regulations: The Federal rules restrict any use of the information to criminally investigate or prosecute any alcohol or drug abuse patient.[facility] HospitalIn the event this information is protected by the Federal Confidentiality of Alcohol and Drug Abuse Patient Records regulations: The Federal rules restrict any use of the information to criminally investigate or prosecute any alcohol or drug abuse patient.[facility] HospitalIn the event this information is protected by the Federal Confidentiality of Alcohol and Drug Abuse Patient Records regulations: The Federal rules restrict any use of the information to criminally investigate or prosecute any alcohol or drug abuse patient.[facility] HospitalIn the event this information is protected by the Federal Confidentiality of Alcohol and Drug Abuse Patient Records regulations: The Federal rules restrict any use of the information to criminally investigate or prosecute any alcohol or drug abuse patient.[facility] HospitalIn the event this information is protected by the Federal Confidentiality of Alcohol and Drug Abuse Patient Records regulations: The Federal rules restrict any use of the information to criminally investigate or prosecute any alcohol or drug abuse patient.[facility] HospitalIn the event this information is protected by the Federal Confidentiality of Alcohol and Drug Abuse Patient Records regulations: The Federal rules restrict any use of the information to criminally investigate or prosecute any alcohol or drug abuse patient.[facility] HospitalIn the event this information is protected by the Federal Confidentiality of Alcohol and Drug Abuse Patient Records regulations: The Federal rules restrict any use of the information to criminally investigate or prosecute any alcohol or drug abuse patient.[facility] HospitalIn the event this information is protected by the Federal Confidentiality of Alcohol and Drug Abuse Patient Records regulations: The Federal rules restrict any use of the information to criminally investigate or prosecute any alcohol or drug abuse patient.[facility] HospitalIn the event this information is protected by the Federal Confidentiality of Alcohol and Drug Abuse Patient Records regulations: The Federal rules restrict any use of the information to criminally investigate or prosecute any alcohol or drug abuse patient.[facility] HospitalIn the event this information is protected by the Federal Confidentiality of Alcohol and Drug Abuse Patient Records regulations: The Federal rules restrict any use of the information to criminally investigate or prosecute any alcohol or drug abuse patient.[facility] HospitalIn the event this information is protected by the Federal Confidentiality of Alcohol and Drug Abuse Patient Records regulations: The Federal rules restrict any use of the information to criminally investigate or prosecute any alcohol or drug abuse patient.[facility] Hospital[facility] the event this information is protected by the Federal Confidentiality of Alcohol and Drug Abuse Patient Records regulations: The Federal rules restrict any use of the information to criminally investigate or prosecute any alcohol or drug abuse patient.[facility] Hospital[facility] the event this information is protected by the Federal Confidentiality of Alcohol and Drug Abuse Patient Records regulations: The Federal rules restrict any use of the information to criminally investigate or prosecute any alcohol or drug abuse patient.[facility] Hospital[facility] the event this information is protected by the Federal Confidentiality of Alcohol and Drug Abuse Patient Records regulations: The Federal rules restrict any use of the information to criminally investigate or prosecute any alcohol or drug abuse patient.[facility] HospitalIn the event this information is protected by the Federal Confidentiality of Alcohol and Drug Abuse Patient Records regulations: The Federal rules restrict any use of the information to criminally investigate or prosecute any alcohol or drug abuse patient.[facility] Care Teams (unrecognized sec tion and content) Outsole Caser Relationship Specialty Start Date End Date Elgin Bal MD [address] [place], [place] [id number] PCP - General Family Practice 12/25/12 Anthony Olivares MD [address] [place], [place] [id number] Field Artillery Radar Operator Nephrology 03/19/21 Anthony Olivares MD [address] [place] [address] Primary Staff Physician Nephrology 12/10/21 Outsole Caser Relationship Specialty Start Date End Date Elgin Bal MD [address] [place], [place] [address] PCP - General Family Practice 12/25/12 Anthony Olivares MD [address] [place] [address] Field Artillery Radar Operator Nephrology 03/19/21 Anthony Olivares MD [address] [place] [address] Primary Staff Physician Nephrology 12/10/21 Outsole Caser Relationship Specialty Start Date End Date Elgin Bal MD [address] [facility] [place] [address] PCP - General Family Practice 12/25/12 Anthony Olivares MD [address] [facility] [place] [address] Field Artillery Radar Operator Nephrology 03/19/21 Anthony Olivares MD [address] [place] [address] Primary Staff Physician Nephrology 12/10/21 Outsole Caser Relationship Specialty Start Date End Date Elgin Bal MD [address] [place] [address] PCP - General Family Practice 12/25/12 Anthony Olivares MD [address] [place] [address] Field Artillery Radar Operator Nephrology 03/19/21 Anthony Olivares MD [address] [place] [address] Primary Staff Physician Nephrology 12/10/21 Outsole Caser Relationship Specialty Start Date End Date Elgin aBl MD [address] [place] [address] PCP - General Family Practice 12/25/12 Anthony Olivares MD [address] [facility] [place] [address] Field Artillery Radar Operator Nephrology 03/19/21 Anthony Olivares MD [address] [facility] [place] [address] Primary Staff Physician Nephrology 12/10/21 Outsole Caser Relationship Specialty Start Date End Date Elgin Bal MD [address] [place] [address] PCP - General Family Practice 12/25/12 Anthony Olivares MD [address] [place] [address] Field Artillery Radar Operator Nephrology 03/19/21 Anthony Olivares MD [address] [place] [address] Primary Staff Physician Nephrology 12/10/21 Outsole Caser Relationship Specialty Start Date End Date Elgin Bal MD [address] [place] [address] PCP - General Family Medicine 12/25/12 Anthony Olivares MD [address] [place] [address] Field Artillery Radar Operator Nephrology 03/19/21 Anthony Olivares MD [address] [place] [address] Primary Staff Physician Nephrology 12/10/21 Outsole Caser Relationship Specialty Start Date End Date Elgin Bal MD [address] [place] [address] PCP - General Family Medicine 12/25/12 Anthony Olivares MD [address] [facility] [place] [address] Field Artillery Radar Operator Nephrology 03/19/21 Anthony Olivares MD [address] [place] [address] Primary Staff Physician Nephrology 12/10/21 Outsole Caser Relationship Specialty Start Date End Date Elgin Bal MD [address] [place] [address] PCP - General Family Medicine 12/25/12 Anthony Olivares MD [address] [place], [place] [id number] Field Artillery Radar Operator Nephrology 03/19/21 Anthony Olivares MD [address] [place], [place] [address] Primary Staff Physician Nephrology 12/10/21 Outsole Caser Relationship Specialty Start Date End Date Elgin Bal MD [address] [place], [place] [id number] PCP - General Family Medicine 12/25/12 Anthony Olivares MD [address] [place] [address] Field Artillery Radar Operator Nephrology 03/19/21 Antohny Olivares MD [address] [place] [address] Primary Staff Physician Nephrology 12/10/21 [...] CHANDLER Attending Provider, Referring Prov ider Active Outsole Caser Relationship Specialty Start Date End Date Elgin Bal MD [address] [place] [address] PCP - General Family Medicine 12/25/12 Anthony Olivares MD [address] [place] [address] Field Artillery Radar Operator Nephrology 03/19/21 Anthony Olivares MD [address] [place] [address] Primary Staff Physician Nephrology 12/10/21 Team Status: Inactive Member Role Status Dates Dr. Elgin Bal MD Primary Care Provider Active Dr. Alfredo Phipps MD Attending Provider Active Team Status: Active Member Role Status Dates Dr. Elgin Bal MD Primary Care Provider Active Adam CHANDLER Attending Provider, Referring Prov ider Active Outsole Caser Relationship Specialty Start Date End Date Elgin Bal MD [address] [place], [place] [address] PCP - General Family Medicine 12/25/12 Anthony Olivares MD [address] [place] [address] Field Artillery Radar Operator Nephrology 03/19/21 Anthony Olivares MD [address] [place] [address] Primary Staff Physician Nephrology 12/10/21 Outsole Caser Relationship Specialty Start Date End Date Elgin Bal MD [address] [place] [address] PCP - General Family Medicine 12/25/12 Anthony Olivares MD [address] [place] [address] Field Artillery Radar Operator Nephrology 03/19/21 Anthony Olivares MD [address] [place] [address] Primary Staff Physician Nephrology 12/10/21 Outsole Caser Relationship Specialty Start Date End Date Alfredo Phipps MD [address] [address] PCP - General Internal Medicine 10/19/23 Anthony Olivares MD [address] [place] [address] Field Artillery Radar Operator Nephrology 03/19/21 Anthony Olivares MD [address] [place] [address] Primary Staff Physician Nephrology 12/10/21 Outsole Caser Relationship Specialty Start Date End Date Alfredo Phipps MD [address] [facility] [address] [place] [address] PCP - General Internal Medicine 10/19/23 Anthony Olivares MD [address] [place] [address] Field Artillery Radar Operator Nephrology 03/19/21 Anthony Olivares MD [address] [place] [address] Primary Staff Physician Nephrology 12/10/21 Outsole Caser Relationship Specialty Start Date End Date Alfredo Phipps MD [address] [address] [place] [address] PCP - General Internal Medicine 10/19/23 Anthony Olivares MD [address] [place] [address] Field Artillery Radar Operator Nephrology 03/19/21 Anthony Olivares MD [address] [place] [address] Primary Staff Physician Nephrology 12/10/21 Outsole Caser Relationship Specialty Start Date End Date Alfredo Phipps MD [address] [facility] [address] [place] [address] PCP - General Internal Medicine 10/19/23 Anthony Olivares MD [address] [place] [address] Field Artillery Radar Operator Nephrology 03/19/21 Anthony Olivares MD [address] [place] [address] Primary Staff Physician Nephrology 12/10/21 Outsole Caser Relationship Specialty Start Date End Date Alfredo Phipps MD [address] [facility] [address] [place] [address] PCP - General Internal Medicine 10/19/23 Anthony Olivares MD [address] [place] [address] Field Artillery Radar Operator Nephrology 03/19/21 Anthony Olivares MD [address] [place] [address] Primary Staff Physician Nephrology 12/10/21 Outsole Caser Relationship Specialty Start Date End Date Alfredo Phipps MD [address] [facility] [address] [address] [place] [address] PCP - General Internal Medicine 10/19/23 Anthony Olivares MD [address] [place] [address] Field Artillery Radar Operator Nephrology 03/19/21 Anthony Olivares MD [address] [place] [address] Primary Staff Physician Nephrology 12/10/21 Outsole Caser Relationship Specialty Start Date End Date Alfredo Phipps MD [address] [facility] [address] [place] [address] PCP - General Internal Medicine 10/19/23 Anthony Olivares MD [address] [place] [address] Field Artillery Radar Operator Nephrology 03/19/21 Anthony Olivares MD [address] [place] [address] Primary Staff Physician Nephrology 12/10/21 Outsole Caser Relationship Specialty Start Date End Date Alfredo Phipps MD [address] [facility] [address] [address] [place] [address] PCP - General Internal Medicine 10/19/23 Anthony Olivares MD [address] [place] [address] Field Artillery Radar Operator Nephrology 03/19/21 Anthony Olivares MD [address] [place] [address] Primary Staff Physician Nephrology 12/10/21 Outsole Caser Relationship Specialty Start Date End Date Alfredo Phipps MD [address] [facility] [address] [place] [address] PCP - General Internal Medicine 10/19/23 Anthony Olivares MD [address] [place] [address] Field Artillery Radar Operator Nephrology 03/19/21 Anthony Olivares MD [address] [place] [address] Primary Staff Physician Nephrology 12/10/21 Outsole Caser Relationship Specialty Start Date End Date Alfredo Phipps MD [address] [facility] [address] [place] [address] PCP - General Internal Medicine 10/19/23 Anthony Olivares MD [address] [place] [address] Field Artillery Radar Operator Nephrology 03/19/21 Anthony Olivares MD [address] [place] [address] Primary Staff Physician Nephrology 12/10/21 Outsole Caser Relationship Specialty Start Date End Date Alfredo Phipps MD [address] [facility] [address] [place] [address] PCP - General Internal Medicine 10/19/23 Anthony Olivares MD [address] [place] [address] Field Artillery Radar Operator Nephrology 03/19/21 Anthony Olivares MD [address] [place] [address] Primary Staff Physician Nephrology 12/10/21 Outsole Caser Relationship Specialty Start Date End Date Alfredo Phipps MD [address] [facility] [address] [place] [address] PCP - General Internal Medicine 10/19/23 Anthony Olivares MD [address] [place] [address] Field Artillery Radar Operator Nephrology 03/19/21 Anthony Olivares MD [address] [place] [address] Primary Staff Physician Nephrology 12/10/21 Outsole Caser Relationship Specialty Start Date End Date Alfredo Phipps MD [address] [facility] [address] [place] [address] PCP - General Internal Medicine 10/19/23 Anthony Olivares MD [address] [place] [address] Field Artillery Radar Operator Nephrology 03/19/21 Anthony Olivares MD [address] [place] [address] Primary Staff Physician Nephrology 12/10/21 Outsole Caser Relationship Specialty Start Date End Date Alfredo Phipps MD [address] [place] [address] [place] [address] PCP - General Internal Medicine 10/19/23 Anthony Olivares MD [address] [place] [address] Field Artillery Radar Operator Nephrology 03/19/21 Anthony Olivares MD [address] [place] [address] Primary Staff Physician Nephrology 12/10/21 [...] January 30, 2025 End: January 30, 2025 Outsole Caser Relationship Specialty Start Date End Date Alfredo Phipps MD [address] [facility] [address] [place] [address] PCP - General Internal Medicine 10/19/23 Anthony Olivares MD [address] [place] [address] Field Artillery Radar Operator Nephrology 03/19/21 Anthony Olivares MD [address] [place] [id number] Primary Staff Physician Nephrology 12/10/21 Team Status: [...] Provider Active St art: May 02, 2025 Outsole Caser Relationship Specialty Start Date End Date Alfredo Phipps MD [address] [facility] [address] [place] [address] PCP - General Internal Medicine 10/19/23 Anthony Olivares MD [address] [place] [address] Field Artillery Radar Operator Nephrology 03/19/21 Anthony Olivares MD [address] [place] [address] Primary Staff Physician Nephrology 12/10/21 Outsole Caser Relationship Specialty Start Date End Date Alfredo Phipps MD [address] [facility] [address] [place] [address] PCP - General Internal Medicine 10/19/23 Anthony Olivares MD [address] [place] [address] Field Artillery Radar Operator Nephrology 03/19/21 Anthony Olivares MD [address] [place], [place] [address] Primary Staff Physician Nephrology 12/10/21 Outsole Caser Relationship Specialty Start Date End Date Alfredo Phipps MD [address] [facility] [address] [place] [address] PCP - General Internal Medicine 10/19/23 Anthony Olivares MD [address] [place] [address] Field Artillery Radar Operator Nephrology 03/19/21 Anthony Olivares MD [address] [place], [place] [address] Primary Staff Physician Nephrology 12/10/21 Team Status: [...] BE BASED ON THE PRIMARY CLINICAL RECORDS. [employer] [facility]. provides no warranty or guarantee of the accuracy or completeness of information in this document.
[2025-11-01 08:27] LABS: Lithium 0.49 mmol/L (0.60-1.20)
== END ==
LOC: OLS.SANC 05:00
PROVIDERS: PCP Family Medicine; Visit Provider Internal Medicine
DX: E11.9 Type 2 diabetes mellitus without complications (principal); E78.5 Hyperlipidemia, unspecified; Z79.899 Other long term (current) drug therapy; F20.9 Schizophrenia, unspecified
CPT/HCPCS: 36415; 80178